=== PATIENT | male | born 1960 | race Caucasian/White ===

== ENCOUNTER 2018-07-02 11:38 | Emergency (ER) | payer MEDICARE, MEDICAID ==
[~2018-07-02] VITALS: Ht 177.8 cm; Wt 99.8 kg
--- OUTSIDE RECORDS SUMMARY | 2018-07-02 11:49 | XMS REPORT ---
Author [facility] Medical Staff Organization [facility] Address [address], [place] [address] Phone [phone] Care Team Providers Care Self Contained Behavior Unit Teacher Name Role Phone HARPER JERRY, ALINA TERRY [phone] ALINA CASTANEDA MD, PP [phone] Summary purpose TRANSITION OF CARE AUTO GENERATION Chief Complaint and Reason for Visit Admit Diagnosis 1 CHEST PAIN RULE OUT AL Problem list No authorized problems tracked for continuity of care are available for this visit. Encounters The following conditions tracked for encounter diagnoses were recorded for this visit: Finding or Diagnosis Status Certainty Chronicity Onset *CHEST PAIN Active Medications Discharge Medications Status Medication Directions Current alfuzosin ER 10 mg tablet,extended release 24 hr 10 milligram (s) oral Daily Current allopurinol 300 mg tablet 300 milligram (s) oral Daily Current clonazepam 1 mg tablet 0.5 milligram (s) oral 3 xDaily 02-04-21 Current Colace 100 mg capsule 1 tab(s) oral Twice a day Current fluvoxamine 100 mg tablet 100 milligram (s) oral 3 xDaily 02-04-21 1 in AM, 1/2 at noon, 1 at bedtime Current hydrocodone-acetaminophen 5 mg-325 mg tablet 2 tab(s) oral 3 xDaily As Needed for pain Current Latuda 120 mg tablet 120 milligram (s) oral Daily with dinner Current Levemir 100 unit/mL Sub-Q 100 unit(s) subcutaneous Daily at 1900 Current lisinopril 20 mg tablet 20 milligram (s) oral Twice a day Current metformin ER 500 mg tablet,extended release 24 hr 1500 milligram (s) oral Daily Current metoprolol tartrate 100 mg tablet 100 milligram (s) oral Daily Current morphine 30 mg capsule 30 milligram (s) oral Twice a day Current [place]-3 oral 1 gram(s) oral Daily Current tolterodine 2 mg tablet 2 milligram (s) oral Twice a day Current Travatan 0.004 % Eye Drops 1 drop(s) ophthalmic Bedtime daily each eye Current verapamil ER (HS) 180 mg tablet,extended release 24 hr 180 milligram (s) oral Twice a day Current zolpidem 10 mg tablet 10 milligram (s) oral Bedtime daily Allergies, adverse reactions, alerts Allergen Category Ingredient Status Reaction Severity Onset Prozac Drug Allergy Prozac Confirmed or Verified Prozac Drug Allergy Prozac Confirmed or Verified Prozac Drug Allergy Fluoxetine Confirmed or Verified Abilify Drug Allergy Abilify Confirmed or Verified Abilify Drug Allergy Aripiprazole Confirmed or Verified Immunizations No immunizations recorded for this patient visit Relevant diagnostic tests and/or laboratory data RESULTS Chemistry :00:00 Result Normal Range Units Sodium L 131 134-145 mEq/l Potassium 4.5 3.5-5.1 mEq/l Chloride L 96 98-107 mEq/l CO2 23.1 22-28 mEq/l Glucose H 165 70-105 mg/dl BUN 16 7-18 mg/dl Creatinine H 1.40 0.6-1.3 mg/dl Calcium L 8.0 8.4-10.2 mg/dl TP - Total Protein 7.1 6.0-8.3 g/dl Albumin 3.9 3.5-5 g/dl Bilirubin - Total 0.2 0.1-1.0 mg/dl AST 34 10-42 IU/L ALT H 73 12-65 IU/L ALP L 36 39-107 IU/L Osmolality L 267.5 280-300 mOsm/L Albumin/Globulin Ratio 1.2 0-8 Anion GAP 11.9 8-16 BUN/Creatinine Ratio 11.4 10-20 BNP- Brain Natriuretic Peptide 83 0-900 pg/ml Estimated GFR L 53 >=60 mL/min/1.7 Hematology :00:00 Result Normal Range Units WBC 6.7 4.8-10.8 103/uL RBC 5.0 4.7-6.1 106/uL HGB 14.0 13.0-18.0 g/dl HCT L 39.0 41.9-52.0 % MCV L 78.8 80-94 FL MCH 28.3 27-31 pg MCHC 35.9 33-37 g/dl RDW 13.2 11.5-15.5 % PLT 231 130-400 103/uL MPV 10.2 7.3-10.4 FL Cardiac [id number]:40:00 Result Normal Range Units Troponin I < 0.04 0.0-0.4 ng/ml Patient samples may contain heterophilic antibodies that could react in immunoassays to give falsely elevated or depressed results. This Dimension assay has been designed to minimize interference from heterophilic antibodies. Nevertheless, complete elimination of this interference from all patient specimens cannot be guaranteed. A test result that is inconsistent with the clinical picture and patient history should be interpreted with caution. [id number]:55:00 Result Normal Range Units Troponin I < 0.04 0.0-0.4 ng/ml Patient samples may contain heterophilic antibodies that could react in immunoassays to give falsely elevated or depressed results. This Dimension assay has been designed to minimize interference from heterophilic antibodies. Nevertheless, complete elimination of this interference from all patient specimens cannot be guaranteed. A test result that is inconsistent with the clinical picture and patient history should be interpreted with caution. [id number]:00:00 Result Normal Range Units CK 183 39-308 IU/L CKMB 1.4 0-3.6 ng/ml Patient samples may contain heterophilic antibodies that could react with immunoassays to give falsely elevated or depressed results. This Dimension assay has been designed to minimize interference from heterophilic antibodies. Nevertheless, complete elimination of this interference from all patient specimens cannot be guaranteed. A test result that is inconsistent with the clinical picture and patient history should be interpreted with caution. Troponin I < 0.04 0.0-0.4 ng/ml Patient samples may contain heterophilic antibodies that could react in immunoassays to give falsely elevated or depressed results. This Dimension assay has been designed to minimize interference from heterophilic antibodies. Nevertheless, complete elimination of this interference from all patient specimens cannot be guaranteed. A test result that is inconsistent with the clinical picture and patient history should be interpreted with caution. Radiology Results [id number]:11:00 Chest XRay - Port - 1 View PACs Image DATE OF EXAM: Sep 19 2014 RAD 0292-CHEST 1 VIEW PORT : RADIOLOGY REPORT DATE OF SERVICE: 09/19/14 HISTORY: Patient has chest pain. PORTABLE ONE VIEW CHEST 1512 HOURS Heart and mediastinum are unremarkable. Lungs are clear. No effusion is seen. There is some rib deformity in lower right ribs laterally. No pleural reaction is identified. IMPRESSION: No acute process or change from 12/23/2012. Minimal scarring is seen in the right costophrenic angle. Chani Redman DO /ma 09/19/2014 15:18:00 / 09/19/2014 15:36:59 cc:Dr. Alina Castaneda This document has been electronically Signed by: On: DATE OF EXAM: Sep 19 2014 RAD 0292-CHEST 1 VIEW PORT : RADIOLOGY REPORT DATE OF SERVICE: 09/19/14 HISTORY: Patient has chest pain. PORTABLE ONE VIEW CHEST 1512 HOURS Heart and mediastinum are unremarkable. Lungs are clear. No effusion is seen. There is some rib deformity in lower right ribs laterally. No pleural reaction is identified. IMPRESSION: No acute process or change from 12/23/2012. Minimal scarring is seen in the right costophrenic angle. Chani Redman DO /ma 09/19/2014 15:18:00 / 09/19/2014 15:36:59 cc:Dr. Alina Castaneda This document has been electronically Signed by: CHANI REDMAN DO On: Sep 20 20148:11A Result Amended on 2014-09-20 at 08:11:20. Previous status was AK. CHEST PAIN RULE OUT AL 32-33-033078:00:00 Result Normal Range Units MPV 10.2 7.3-10.4 FL History of procedures No procedures recorded for this patient visit. Functional status Functional Status Finding Observation Time Hearing Prob Loc left 59-38-896415:40 Vision Problems yes 73-23-888019:40 Vision Correct Dev glasses 43-79-530732:40 Ambulation Asst Dev none 07-93-166149:40 Range of Motion full :02 Muscle Strength RUE 5 ROM full resist 50-92-936813:02 Muscle Strength RLE 5 ROM full resist :02 Muscle Strength LUE 5 ROM full resist :02 Muscle Strength LLE 5 ROM full resist 36-72-903025:02 Transfers assist x 1 85-82-685980:02 Ambulation in room :02 Balance steady :02 Bathing Assistance none :40 Eating Assistance none :40 Dressing Assistance none :40 Toileting Assistance none :40 Transfer Assistance none :40 Decline Slf Care/Mob no :40 Phys Cond Stable no :40 Nutrition normal : Diet ADA specify calorie Comment: 1800 : Oral Cavity moist and intact : Teeth missing (specify) :02 Dental Hygiene poor :02 Abdomen Appearance round :02 Abdomen soft : Bowel Sounds present : NG Tube no :02 Feeding Tube none :02 Melgoza no :02 Cont Bladder Irr no :02 Ostomy no :02 Stool normal :02 Urination normal :02 Urine Clarity clear :02 Urine Color yellow :02 Quality sym/unlabored : Cough absent : Secretions no : Breath Sounds RUL clear :02 Breath Sounds RML clear :02 Breath Sounds RLL clear :02 Breath Sounds ROSALIND clear :02 Breath Sounds LLL clear :02 Airway natural :02 Chest Tube no :02 Oxygen no :15 C-PAP no :02 BI-PAP no :02 Temp >100.4 no :02 Temp <96.8 no :02 Chills with rigors no : HR > 90bpm no :02 Respirations > 20 no :02 Systolic <90 no : headache stiff neck no :02 WBC > 32234 no : WBC < 4000 no :02 Rapid Resp no :02 IV Site Location L hand : IV Type peripheral :20 IV Site Information discontinued : IV Site Yair 18 : IV Site Appearance WNL :03 IV Site Color clear :03 IV Site Patent yes :03 Dressing Type gauze : Nursing Note pt. off the unit at this time.no distress noted. : 50 Cognitive Status Finding Observation Time Oriented To Date 5 Yes :[address] 5 Yes :40 Name 3 Objects 3 Yes :40 Name Object in Rm 2 Yes :40 Recall 3 Objects 3 Yes :40 Repeats a Phrase 1 Yes :40 Follows Verbal Direc 3 Yes :40 Follows Written Dire 0 No :40 Write a Sentance 0 No :40 Draw an Object 1 Yes :40 Mini Mental Total 23 points :40 Less than 20 Phys not applicable :40 Learning Ability learning disability :03 Neurological yes :03 Psychological no :03 Physical no :03 Hearing yes :03 Housetrailer Servicer Needed no :03 Sign Language no :03 Emotional no :03 Vision yes :03 Laguage yes :03 Financial no :03 Vital signs Type Value Date Respiration Rate 18breaths per minute : Pulse 72beats per minute :15 Oxygen Saturation 94% 40-56-377789:15 BP Systolic 104mmHg 26-25-363935:15 BP Diastolic 60mmHg 75-59-015378:15 Temperature 98.9F 64-63-655806:15 Height 72inches 62-22-207519:44 Weight 238.7LB 17-40-774386:44 Social history Type Value Smoking Status FORMER SMOKER Treatment Plan No treatment plan text is available for this visit. Hospital discharge instructions Discharge Date/Time 09/20/14 0950 Accompanied By care car Relationship other (explain) Dismissal Condition good Disposition on DC home Valuables yes Valuable Type cell phone Valuables Returned T patient DC Inst/Educ Give yes Med/Side Effects Rev yes DC Med Rec Rev yes PNE Vac current per pt Vaccines Ord Given no Flu Vac 2013 Tetanus Vac 2009 Diet Explained yes Follow Up Appt D/T september 26 @06:45 Comment: edita
--- OUTSIDE RECORDS SUMMARY | 2018-07-02 11:49 | XMS REPORT ---
Author [facility] Organization [facility] Address [address] [place], [place] [address] Phone [phone] Care Team Providers Care Script Manager Name Role Phone HARPER JERRY, ALINA PP [phone] Summary purpose TRANSITION OF CARE AUTO GENERATION Chief Complaint and Reason for Visit Admit Diagnosis 1 ABDOMINAL PAIN, UNSPECIF Problem list No authorized problems tracked for continuity of care are available for this visit. Encounters No authorized problems tracked for encounter diagnoses are available for this visit. Medications No medications recorded for this patient visit Allergies, adverse reactions, alerts Allergen Category Ingredient Status Reaction Severity Onset Prozac Drug Allergy Prozac Confirmed or Verified Prozac Drug Allergy Prozac Confirmed or Verified Prozac Drug Allergy Fluoxetine Confirmed or Verified Abilify Drug Allergy Abilify Confirmed or Verified Abilify Drug Allergy Aripiprazole Confirmed or Verified Immunizations No immunizations recorded for this patient visit Relevant diagnostic tests and/or laboratory data RESULTS Routine Urinalysis 61-49-287634:15:00 Result Normal Range Units Color YELLOW Clarity Clear Specific [place] 1.008 1.003-1.035 pH 5.5 4.5-8.0 Glucose NEGATIVE Bilirubin NEGATIVE Ketones NEGATIVE Protein NEGATIVE Urobilinogen 0.2 0-0.2 E.U./dL Nitrites NEGATIVE Blood NEGATIVE Leukocytes NEGATIVE WBCs No WBC's Seen RBCs No RBC's Seen. Squamous Epithelial Few Chemistry [id number]:45:00 Result Normal Range Units Sodium L 130 134-145 mEq/l Potassium 4.2 3.5-5.1 mEq/l Chloride L 97 98-107 mEq/l CO2 22.9 22-28 mEq/l Glucose H 148 70-105 mg/dl BUN 10 7-18 mg/dl Creatinine 1.10 0.6-1.3 mg/dl Calcium L 8.0 8.4-10.2 mg/dl TP - Total Protein 6.4 6.0-8.3 g/dl Albumin 3.5 3.5-5 g/dl Bilirubin - Total 0.2 0.1-1.0 mg/dl AST 26 10-42 IU/L ALT 54 12-65 IU/L ALP L 35 39-107 IU/L Lipase 133 73-393 U/L Osmolality L 262.6 280-300 mOsm/L Albumin/Globulin Ratio 1.2 0-8 Anion GAP 10.1 8-16 BUN/Creatinine Ratio L 9.1 10-20 Estimated GFR 70 >=60 mL/min/1.7 Hematology [id number]:45:00 Result Normal Range Units WBC 7.5 4.8-10.8 103/uL RBC L 4.4 4.7-6.1 106/uL HGB L 12.6 13.0-18.0 g/dl HCT L 35.2 41.9-52.0 % MCV 80.7 80-94 FL MCH 28.9 27-31 pg MCHC 35.8 33-37 g/dl RDW 12.7 11.5-15.5 % PLT 203 130-400 103/uL MPV 10.4 7.3-10.4 FL Neutro % 61.3 40-70 % Lymph % 24.4 20-40 % [place] % H 10.3 0-10.0 % Eos % 3.7 0-7.0 % Baso % 0.3 0-2 % Neutro # 4.6 1.5-7.5 103/uL Lymph # 1.8 0.9-4.0 103/uL [place] # 0.8 0-0.8 103/uL Eos # 0.3 0-0.6 103/uL Baso # 0.0 0-0.1 103/uL Body Fluid [id number]:15:00 Result Normal Range Units pH 5.5 4.5-8.0 Radiology Results [id number]:30:00 Abdomen 2 View PACs Image DATE OF EXAM: 2014 RAD 0037-ABDOMEN 2 VIEW : RADIOLOGY REPORT DATE OF SERVICE: 09/23/14 HISTORY: Abdominal pain and diarrhea ABDOMEN 2 VIEWS 2040 HOURS The bowel gas pattern is normal. There are surgical clips in the right upper quadrant. There is no free air. There is no obstruction or ileus. Transsacral stimulator is in place on the right side. IMPRESSION: No acute abnormality in the abdomen. MD ANATOLY Arvizu/isael09/24/2014 06:59:00 / 09/24/2014 09:34:09 cc:Dr. Alina Castaneda This document has been electronically Signed by: On: DATE OF EXAM: 2014 RAD 0037-ABDOMEN 2 VIEW : RADIOLOGY REPORT DATE OF SERVICE: 09/23/14 HISTORY: Abdominal pain and diarrhea ABDOMEN 2 VIEWS 2040 HOURS The bowel gas pattern is normal. There are surgical clips in the right upper quadrant. There is no free air. There is no obstruction or ileus. Transsacral stimulator is in place on the right side. IMPRESSION: No acute abnormality in the abdomen. MD ANATOLY Arvizu/isael09/24/2014 06:59:00 09/24/2014 09:34:09 cc:Dr. Alina Castaneda This document has been electronically Signed by: JOSE ALVAREZ On: 2014 11:30A Result Amended on 2014-09-24 at 11:30:28. Previous status was ID. Chest X-Ray - 2 View PACs Image DATE OF EXAM: 2014 RAD 0300-CHEST XRAY 2 VIEW : RADIOLOGY REPORT DATE OF SERVICE: 09/23/14 HISTORY: Abdominal and epigastric pain CHEST 2 VIEWS 2040 HOURS Comparison is made with 09/19/2014. There is chronic scarring in the right costophrenic angle. There are no acute infiltrates. Heart size and pulmonary vessels are normal. There are old healed right lateral rib fractures. IMPRESSION: Chronic right lateral lung scarring and old rib fractures. No acute chest abnormality. MD ANATOLY Arvizu/ri09/24/2014 06:58:00 / 09/24/2014 09:33:12 cc:Dr. Alina Castaneda This document has been electronically Signed by: On: DATE OF EXAM: 2014 RAD 0300-CHEST XRAY 2 VIEW : RADIOLOGY REPORT DATE OF SERVICE: 09/23/14 HISTORY: Abdominal and epigastric pain CHEST 2 VIEWS 2040 HOURS Comparison is made with 09/19/2014. There is chronic scarring in the right costophrenic angle. There are no acute infiltrates. Heart size and pulmonary vessels are normal. There are old healed right lateral rib fractures. IMPRESSION: Chronic right lateral lung scarring and old rib fractures. No acute chest abnormality. MD ANATOLY Arvizu/ri09/24/2014 06:58:00 / 09/24/2014 09:33:12 cc:Dr. Alina Castaneda This document has been electronically Signed by: JOSE ALVAREZ On: 2014 11:30A Result Amended on 2014-09-24 at 11:30:21. Previous status was ID. [id number]:45:00 Result Normal Range Units MPV 10.4 7.3-10.4 FL History of procedures Procedure Code Code Type Description Date Performed Performing Physician 84033 CPT-4 COMPLETE CBC W/AUTO DIFF WBC 09-23-2014 CHANI YARI 01768 CPT-4 COMPREHEN METABOLIC PANEL 09-23-2014 CHANI YARI 54458 CPT-4 X-RAY EXAM OF ABDOMEN 09-23-2014 CHANI YARI 03667 CPT-4 CHEST X-RAY 09-23-2014 CHANI YARI 04578 CPT-4 URINALYSIS, AUTO W/SCOPE 09-23-2014 CHANI YARI 95189 CPT-4 ASSAY OF LIPASE 09-23-2014 CHANI YARI 11660 CPT-4 ROUTINE VENIPUNCTURE 09-23-2014 CHANI YARI 33475 CPT-4 EMERGENCY DEPT VISIT 09-23-2014 CHANI YARI 15612 CPT-4 US URINE CAPACITY MEASURE 09-23-2014 CHANI YARI 64596 CPT-4 EMERGENCY DEPT VISIT 09-23-2014 CHANI YARI Functional status Functional Status Finding Observation Time Diet regular 60-34-270426:10 Abdomen Appearance round 19-03-932423:10 Abdomen soft 75-27-098548:10 Bowel Sounds present 32-24-096900:10 Urination normal 96-32-379599:10 Quality sym/unlabored 39-72-425388:10 Cough absent 12-60-262275:10 Secretions no :10 Breath Sounds RUL clear :10 Breath Sounds RML clear :10 Breath Sounds RLL clear :10 Breath Sounds ROSALIND clear :10 Breath Sounds LLL clear 13-81-169451:10 Airway natural 22-49-969905:10 Chest Tube no 07-97-126556:10 Oxygen no :45 Temp >100.4 no :10 Temp <96.8 no :10 Chills with rigors no : HR > 90bpm no :10 Respirations > 20 no : Systolic <90 no : headache stiff neck no :10 IV Site Location L FA :45 IV Type peripheral :45 IV Site Information discontinued :45 IV Site Yair 20 :45 IV Site Appearance WNL :45 IV Site Color clear : IV Site Patent no :45 Dressing Type gauze :45 Nursing Note Reviewed dc instructions, Pt accompanied off unit by nurse to wait on his sister. He denies any questions at this x. :45 Vital signs Type Value Date Respiration Rate 16breaths per minute :45 Pulse 72beats per minute :45 Oxygen Saturation 93% :45 BP Systolic 129mmHg :45 BP Diastolic 75mmHg :45 Temperature 98.3F :45 Social history No Social History or smoking status observations were recorded for this visit. ( Unknown if ever smoked.) Treatment Plan No treatment plan text is available for this visit. Hospital discharge instructions Dismissal Condition good Disposition on DC home DC Inst/Educ Give yes PNE Vac current Flu Vac 2013
--- OUTSIDE RECORDS SUMMARY | 2018-07-02 11:49 | XMS REPORT ---
Author [facility] Medical Staff Organization [facility] Address [address] [place], [place] [address] Phone [phone] Care Team Providers Care Personal Lines Agent Name Role Phone HARPER JERRY, JOVANNY PP [phone] Summary purpose TRANSITION OF CARE AUTO GENERATION Chief Complaint and Reason for Visit No authorized Reason for Visit (Admitting Diagnosis) is available for this visit. Problem list No authorized problems tracked for [...] visit Relevant diagnostic tests and/or laboratory data No authorized results are available for this patient visit History of procedures No procedures recorded for this patient visit. Functional status No functional or cognitive status observations are available for this visit. Vital signs No authorized vital signs are available for this visit. Social history No Social History or smoking status observations were recorded for this visit. ( Unknown if ever smoked.) Treatment Plan No treatment plan text is available for this visit. Hospital discharge instructions No discharge instruction text is available for this visit.
--- OUTSIDE RECORDS SUMMARY | 2018-07-02 11:50 | XMS REPORT ---
Author [facility] Medical Staff Organization [facility] Address [address] [place], [place] [address] Phone [phone] Care Team Providers Care Cuprous Chloride Operator Name Role Phone HARPER JERRY, JOVANNY TERRY [phone] JOVANNY SALEEM MD, PP [phone] Summary purpose TRANSITION OF CARE AUTO GENERATION Chief Complaint and Reason for Visit No authorized Reason for Visit (Admitting Diagnosis) is available for this visit. Problem list No authorized problems tracked for continuity of care are available for this visit. Encounters No authorized problems tracked for encounter diagnoses are available for this visit. Medications No home medications recorded for this patient visit Allergies, [...]
--- OUTSIDE RECORDS SUMMARY | 2018-07-02 11:50 | XMS REPORT ---
Author Author [facility] Medical Staff Organization [facility] Address [address] [place], [place] [address] Phone [phone] Care Team Providers Care Loading Dock Helper Name Role Phone HARPER JERRY, JOVANNY TERRY [phone] JOVANNY SALEEM MD, PP [phone] Summary purpose TRANSITION OF CARE AUTO GENERATION Chief Complaint and Reason for Visit Admit Diagnosis 1 CHEST PAIN NEC Problem list No authorized problems tracked for [...] for this patient visit History of procedures Procedure Code Code Type Description Date Performed Performing Physician 62723 CPT-4 ELECTROCARDIOGRAM, TRACING 09-04-2014 JOVANNY SALEEM Functional status No functional or cognitive status [...]
--- OUTSIDE RECORDS SUMMARY | 2018-07-02 11:50 | XMS REPORT ---
Author [facility] Medical Staff Organization [facility] Address [address] [place], [place] [address] Phone [phone] Care Team Providers Care Automatic Lathe Tender Name Role Phone HARPER JERRY, JOVANNY PP [phone] Summary purpose TRANSITION OF CARE AUTO GENERATION [...] tests and/or laboratory data RESULTS Routine Urinalysis 44-01-602542:15:00 Result Normal Range Units Color YELLOW Clarity Clear Specific [place] 1.008 1.003-1.035 pH 5.5 4.5-8.0 Glucose NEGATIVE Bilirubin NEGATIVE Ketones NEGATIVE Protein NEGATIVE Urobilinogen 0.2 0-0.2 E.U./dL Nitrites NEGATIVE Blood NEGATIVE Leukocytes NEGATIVE WBCs No WBC's Seen RBCs No RBC's Seen. Squamous Epithelial Few Chemistry [id number]:45:00 Result Normal Range Units Sodium L 130 [...] 10-20 Estimated GFR 70 >=60 mL/min/1.7 Hematology :45:00 Result Normal Range Units WBC 7.5 4.8-10.8 103/uL RBC L 4.4 4.7-6.1 106/uL HGB L 12.6 13.0-18.0 g/dl HCT L 35.2 41.9-52.0 % MCV 80.7 80-94 FL MCH 28.9 27-31 pg MCHC 35.8 33-37 g/dl RDW 12.7 11.5-15.5 % PLT 203 130-400 103/uL MPV 10.4 7.3-10.4 FL Neutro % 61.3 40-70 % Lymph % 24.4 20-40 % [place] % H 10.3 0-10.0 % Eos % 3.7 0-7.0 % Baso % 0.3 0-2 % Neutro # 4.6 1.5-7.5 103/uL Lymph # 1.8 0.9-4.0 103/uL [place] # 0.8 0-0.8 103/uL Eos # 0.3 0-0.6 103/uL Baso # 0.0 0-0.1 103/uL Body Fluid :15:00 Result Normal Range Units pH 5.5 4.5-8.0 Radiology Results :45:00 Result Normal Range Units MPV 10.4 7.3-10.4 FL History of procedures No procedures recorded for this patient visit. Functional status Functional Status Finding Observation Time Diet regular :10 Abdomen Appearance round 72-07-880497:10 Abdomen soft :10 Bowel Sounds present :10 Urination normal :10 Quality sym/unlabored :10 Cough absent :10 Secretions no :10 Breath Sounds RUL clear :10 Breath Sounds RML clear :10 Breath Sounds RLL clear :10 Breath Sounds ROSALIND clear :10 Breath Sounds LLL clear :10 Airway natural : Chest Tube no :10 Oxygen no :45 Temp >100.4 no :10 Temp <96.8 no :10 Chills with rigors no : HR > 90bpm no : Respirations > 20 no : Systolic <90 no : headache stiff neck no :10 IV Site Location L FA :45 IV Type peripheral :45 IV Site Information discontinued :45 IV Site Yair 20 :45 IV Site Appearance WNL :45 IV Site Color clear :45 IV Site Patent no :45 Dressing Type [...] Give yes PNE Vac current Flu Vac 2014
--- OUTSIDE RECORDS SUMMARY | 2018-07-02 11:50 | XMS REPORT ---
Author Author [facility] Medical Staff Organization [facility] Address [address] [place], [place] [address] Phone [phone] Care Team Providers Care Dipper Clock And Watch Hands Name Role Phone HARPER JERRY, ALINA TERRY [phone] ALINA CASTANEDA MD, PP [phone] Summary purpose TRANSITION OF CARE AUTO GENERATION Chief Complaint and Reason for Visit Admit Diagnosis 1 CHEST PAIN RULE OUT WI Problem list No authorized problems tracked for [...] milligram (s) oral Twice a day Current [place]-3 oral 1 gram(s) oral Daily Current tolterodine [...] 130-400 103/uL MPV 10.2 7.3-10.4 FL Cardiac 14-47-815576:40:00 Result Normal Range Units Troponin I < [...] patient history should be interpreted with caution. 59-09-646021:55:00 Result Normal Range Units Troponin I < [...] patient history should be interpreted with caution. 69-32-268809:00:00 Result Normal Range Units CK 183 39-308 [...] should be interpreted with caution. Radiology Results 83-62-538344:11:00 Chest XRay - Port - 1 View [...] the right costophrenic angle. Chani Redman DO /mo 09/19/2014 15:18:00 / 09/19/2014 15:36:59 cc:Dr. Alina [...] the right costophrenic angle. Chani Redman DO /mo 09/19/2014 15:18:00 / 09/19/2014 15:36:59 cc:Dr. Alina Castaneda This document has been electronically Signed by: CHANI REDMAN DO On: Sep 20 20148:11A Result Amended on 2014-09-20 at 08:11:20. Previous status was CT. CHEST PAIN RULE OUT WI 03-52-051984:00:00 Result Normal Range Units MPV 10.2 7.3-10.4 FL History of procedures No procedures recorded for this patient visit. Functional status Functional Status Finding Observation Time Hearing Prob Loc left 96-63-918348:40 Vision Problems yes 82-72-132641:40 Vision Correct Dev glasses 53-06-807618:40 Ambulation Asst Dev none 77-04-393578:40 Range of Motion full :02 Muscle Strength RUE 5 ROM full resist 98-19-675661:02 Muscle Strength RLE 5 ROM full resist :02 Muscle Strength LUE 5 ROM full resist :02 Muscle Strength LLE 5 ROM full resist 48-09-667253:02 Transfers assist x 1 11-06-421998:02 Ambulation in room :02 Balance steady :02 [...] headache stiff neck no :02 WBC > 57808 no : WBC < 4000 no :02 Rapid Resp no :02 IV Site Location L hand :20 IV Type peripheral :20 IV Site Information discontinued :20 IV Site Yair 18 :20 IV Site Appearance WNL 77-84-964259:03 IV Site Color clear :03 IV Site Patent yes :03 Dressing Type gauze :20 Nursing Note Pt states he is doing okay and states stay was good. 09-23-2014 08:53 Cognitive Status Finding Observation Time Oriented To [...] :03 Physical no :03 Hearing yes :03 Crime Scene Investigator Needed no :03 Sign Language no :03 Emotional no :03 Vision yes :03 Laguage yes :03 Financial no :03 Vital signs Type Value Date Respiration Rate 18breaths per minute :15 Pulse 72beats per minute :15 Oxygen Saturation 94% 82-22-177802:15 BP Systolic 104mmHg 99-53-413457:15 BP Diastolic 60mmHg 65-52-322452:15 Temperature 98.9F 81-31-218361:15 Height 72inches 20-07-519354:44 Weight 238.7LB 52-43-026325:44 Social history Type Value Smoking Status FORMER [...] Tetanus Vac 2009 Diet Explained yes Follow up appt appt made (specify) Follow Up Appt D/T september 26 @06:45 Comment: edita
--- OUTSIDE RECORDS SUMMARY | 2018-07-02 11:50 | XMS REPORT ---
Author Author [facility] Medical Staff Organization [facility] Address [address] [place], [place] [address] Phone [phone] Care Team Providers Care Bread Wrapping Machine Feeder Name Role Phone HARPER JERRY, JOVANNY PP [phone] Summary purpose TRANSITION OF CARE AUTO GENERATION [...]
--- OUTSIDE RECORDS SUMMARY | 2018-07-02 11:50 | XMS REPORT ---
Author Author [facility] Medical Staff Organization [facility] [facility] Address [address] [place], [place] [address] Phone [phone] Care Team Providers Care Cotton Dispatcher Name Role Phone HARPER JERRY, JOVANNY PP [phone] Summary purpose TRANSITION OF CARE AUTO GENERATION [...] Code Type Description Date Performed Performing Physician A0427 CPT-4 ALS1-EMERGENCY 09-23-2014 CHANI GREENBERG A0425 CPT-4 GROUND MILEAGE 09-23-2014 CHANI GREENBERG Functional status No functional or cognitive status [...]
--- OUTSIDE RECORDS SUMMARY | 2018-07-02 11:50 | XMS REPORT ---
Author [facility] Medical Staff Organization [facility] Address [address] [place], [place] [address] Phone [phone] Care Team Providers Care Laboratory Apparatus Glass Blower Name Role Phone HARPER JERRY, JOVANNY PP [phone] Summary purpose TRANSITION OF CARE AUTO GENERATION [...] Functional status Functional Status Finding Observation Time IV Site Location Right hand :31 IV Type peripheral 05-27-878989:31 IV Site Information discontinued :26 IV Site Start Attmpt 1 times :31 IV Site Yair 20 78-48-525209:31 IV Site Appearance WNL 53-73-157424:26 IV Site Color clear :26 IV Site Patent yes :26 Dressing Type gauze :26 Nursing Note Second set of scans completed. Verbal and written discharge instructions given to patient. He voiced understanding. Patient given a to go bag of crackers and juice. Patient escorted to waiting room to wait on care car in Good condition. Chest pain has remained at a "0" throughout procedure. 75-31-564030:30 Vital signs Type Value Date Height 72inches 92-45-969189:41 Weight 245LB 51-58-860349:41 Social history No Social History or smoking status observations were recorded for this visit. ( Unknown if ever smoked.) Treatment Plan No treatment plan text is available for this visit. Hospital discharge instructions Discharge Date/Time 09/26/2014 09:30 Dismissal Condition good Disposition on DC home Valuables yes Valuable Type billfold/calderone Valuables Returned T patient
--- OUTSIDE RECORDS SUMMARY | 2018-07-02 11:51 | XMS REPORT ---
Author Author [facility] Medical Staff Organization [facility] Address [address] [place] [address] Phone [phone] Care Team Providers Care Garment Mender Name Role Phone JACKI AHN APRN PP [phone] Summary purpose TRANSITION OF CARE AUTO GENERATION [...] Code Type Description Date Performed Performing Physician 38485 CPT-4 COMPREHEN METABOLIC PANEL 04-08-2015 [facility] 29425 CPT-4 BLOOD CULTURE FOR BACTERIA 04-08-2015 [facility] 01319 CPT-4 BLOOD CULTURE FOR BACTERIA 04-08-2015 [facility] 79481 CPT-4 URINALYSIS AUTO W/SCOPE 04-08-2015 [facility] 82989 CPT-4 ASSAY OF LACTIC ACID 04-08-2015 [facility] 90628 CPT-4 CHEST X-RAY 2VW FRONTAL&LATL 04-08-2015 [facility] 29754 CPT-4 X-RAY EXAM OF ABDOMEN 04-08-2015 [facility] 87099 CPT-4 C DIFF AMPLIFIED PROBE 04-08-2015 [facility] 77706 CPT-4 FECES CULTURE AEROBIC BACT 04-08-2015 [facility] 27225 CPT-4 STOOL CULTR AEROBIC BACT EA 04-08-2015 [facility] 31593 CPT-4 SHIGA-LIKE TOXIN AG EIA 04-08-2015 [facility] J2405 CPT-4 ONDANSETRON HCL INJECTION 04-08-2015 [facility] J7030 CPT-4 NORMAL SALINE SOLUTION INFUS 04-08-2015 [facility] 59338 CPT-4 ROUTINE VENIPUNCTURE 04-08-2015 [facility] 90374 CPT-4 ROUTINE VENIPUNCTURE 04-08-2015 [facility] 91941 CPT-4 COMPLETE CBC AUTOMATED 04-08-2015 [facility] 74118 CPT-4 BL SMEAR W/DIFF WBC COUNT 04-08-2015 [facility] 42443 CPT-4 EMERGENCY DEPT VISIT 04-08-2015 [facility] 99306 CPT-4 EMERGENCY DEPT VISIT 04-08-2015 [facility] 79630 CPT-4 THER/PROPH/DIAG INJ IV PUSH 04-08-2015 [facility] 13474 CPT-4 HYDRATE IV INFUSION ADD-ON 04-08-2015 [facility] Functional status No functional or cognitive status [...]
--- OUTSIDE RECORDS SUMMARY | 2018-07-02 11:51 | XMS REPORT ---
Author Author [facility] Medical Staff Organization [facility] Address [address] [place], [place] [address] Phone [phone] Care Team Providers Care Certified Paralegal Name Role Phone HARPER JERRY, JOVANNY PP [phone] Summary purpose TRANSITION OF CARE AUTO GENERATION [...]
--- OUTSIDE RECORDS SUMMARY | 2018-07-02 11:51 | XMS REPORT ---
Author Author [facility] [facility] Medical Staff Organization [facility] [employer] [facility] Address [address] [place], [place] [address] Phone [phone] Care Team Providers Care Cereal Miller Name Role Phone HARPER JERRY, ALINA PP [phone] Summary purpose TRANSITION OF CARE AUTO GENERATION Chief Complaint and Reason for Visit Admit Diagnosis 1 CHEST PAIN NOS Problem list No authorized problems tracked for [...] Relevant diagnostic tests and/or laboratory data RESULTS Radiology Results 53-21-298869:53:00 MYOCARDIAL SPECT MULT PACs Image DATE OF EXAM: 2014 [id number] SPECT MULTIPLE : RADIOLOGY REPORT DATE OF SERVICE: 09/26/14 HISTORY: Chest pain, hypertension, hyperlipidemia, obese, tobacco use, family history PHARMACOLOGICAL STRESS AND RESTING MYOCARDIAL PERFUSION STUDY (LEXISCAN CARDIOLITE STUDY) 0955 HOURS The patient initially is given 9.1 mCi of technetium 99m labeled Cardiolite intravenously. After a 62 minute delay, resting SPECT perfusion images are obtained. The patient is then given the pharmacological stress agent by the referring clinician. At maximal stress, the patient is given 33.0 mCi of technetium 99m labeled Cardiolite intravenously. After a 58 minute delay, gated stress SPECT perfusion images are obtained. On the nongated stress SPECT perfusion images, there is a perfusion defect along the anteroseptal wall of the left ventricle as well as along the inferior wall of the left ventricle. These perfusion defects are less apparent on the stress study than on the resting images.The differential diagnosis for the nongated study would include areas of previous infarction.Since the stress and resting images are almost identical, there is no evidence for reversible ischemia. On the end-systolic gated stress SPECT perfusion images, the minor perfusion defect along the anteroseptal wall of the apex is present. There is also a minor defect along the inferior wall of the left ventricle.These are much smaller on the end-systolic gated stress SPECT perfusion images than on the resting images and therefore most likely represent technical artifacts, although a small area of previous infarction is in the differential diagnosis.Since the stress images have much smaller perfusion defects, there is no evidence for any reversible ischemia. On the gated study, the left ventricular ejection fraction is calculated at 63% which is normal. The end-systolic volume is 39 cc with the end-diastolic volume being 107 cc. there is normal segmental left ventricular cardiac wall motion and thickening present. IMPRESSION: 1)The end-systolic stress SPECT perfusion images have a minor perfusion defect along the apex at the anteroseptal wall. This is most likely a technical artifact due to the patient's body habitus. The resting images have perfusion defects in the anteroseptal wall as well as inferior wall which are much larger on the resting study than on the stress images. There is no evidence for any reversible ischemia. 2)The gated study has a left ventricular ejection fraction calculated at 63% which is normal. There is normal segmental left ventricular cardiac wall motion and thickening present. Lenroe Streeter MD SDP/pb09/26/2014 16:24:00 / 09/26/2014 21:20:45 cc:Dr. Alina Castaneda This document has been electronically Signed by: On: History of procedures Procedure Code Code Type Description Date Performed Performing Physician 49055 CPT-4 CARDIOVASCULAR STRESS TEST 09-26-2014 ALINA CASTANEDA 64597 CPT-4 HT MUSCLE IMAGE SPECT, MULT 09-26-2014 ALINA CASTANEDA A9500 CPT-4 TC99M SESTAMIBI 09-26-2014 ALINA CASTANEDA J2785 CPT-4 REGADENOSON INJECTION 09-26-2014 ALINA CASTANEDA Functional status Functional Status Finding Observation Time IV Site Location Right hand 63-51-564312:31 IV Type peripheral 52-12-988939:31 IV Site Information discontinued 88-36-581050:26 IV Site Start Attmpt 1 times :31 IV Site Yair 20 :31 IV Site Appearance WNL :26 IV Site Color clear :26 IV Site Patent yes :26 Dressing Type gauze :26 Nursing Note Patient has already heard from Dr. Castaneda regarding test. 20140524:59 Vital signs Type Value Date Height 72inches :41 Weight 245LB :41 Social history No Social History or smoking status observations were recorded for this visit. ( Unknown if ever smoked.) Treatment Plan No treatment plan text is available for this visit. Hospital discharge instructions Discharge Date/Time 09/26/2014 09:30 Dismissal Condition good Disposition on DC home Valuables yes Valuable Type billfold/purse Valuables Returned T patient
--- OUTSIDE RECORDS SUMMARY | 2018-07-02 11:51 | XMS REPORT ---
Author Author [facility] Medical Staff Organization [facility] Address [address] [id number] Phone [phone] Care Team Providers Care Licensed Massage Therapist Name Role Phone MIMA ERAZO APRN PP [phone] MIMA ERAZO APRN, PP [phone] Summary purpose TRANSITION OF CARE AUTO GENERATION Chief Complaint and Reason for Visit Admit Diagnosis 1 LEUKOCYTOSIS NAUSEA VOMITING Admit Diagnosis 2 ABD PAIN Problem list No authorized problems tracked for continuity of care are available for this visit. Encounters The following conditions tracked for encounter diagnoses were recorded for this visit: Finding or Diagnosis Status Certainty Chronicity Onset *LEUKOCYTOSIS Active *NAUSEA AND VOMITING Active *DIARRHEA Active Medications Discharge Medications Status Medication Directions Current alfuzosin ER 10 mg tablet,extended release 24 hr 10 milligram (s) oral Daily Current allopurinol 300 mg tablet 300 milligram (s) oral Daily Current Cipro 250 mg tablet one tablet oral Twice a day Current clonazepam 1 mg tablet 1 milligram (s) oral 3 xDaily 02-04-21 Current Coricidin HBP oral 1 tab(s) oral As Needed for Cough/congestion Current Flagyl 500 mg tablet one tablet oral 3 xDaily 02-04-21 Current fluvoxamine 100 mg tablet 100 milligram (s) oral Morning and Evening Current fluvoxamine 100 mg tablet 50 milligram (s) oral Daily at 1200 Current Humalog 100 unit/mL subcutaneous solution 10 unit(s) subcutaneous Daily with lunch and dinner Current Humalog 100 unit/mL subcutaneous solution 20 unit(s) subcutaneous Daily with breakfast Current hydrocodone-acetaminophen 5 mg-325 mg tablet 2 tab(s) oral oral 3 xDaily As Needed for Breakthrough pain Current Latuda 120 mg tablet 120 milligram (s) oral Daily with dinner Current Levemir 100 unit/mL Sub-Q 70 unit(s) subcutaneous Bedtime daily Current Lomotil 2.5 mg-0.025 mg tablet 2 tab(s) oral As Needed for Diarrhea 1-2 tabs after each loose stool Current Lubricating Drops eye solution 1 drop(s) opht As Needed for Dry eyes Current Miralax 17 gram oral powder packet 17 gram(s) oral oral As Needed for Diarrhea Current morphine 30 mg capsule 30 milligram (s) oral Twice a day Current [place]-3 capsule 1 gram(s) oral Daily Current tolterodine 2 mg tablet 2 milligram (s) oral Twice a day Current Travatan 0.004 % Eye Drops 1 drop(s) ophthalmic Bedtime daily each eye Current Travatan Z 0.004 % eye drops 1 drop(s) ophthalmic Daily Current trazodone 150 mg tablet 150 milligram (s) oral Bedtime daily Current Zofran ODT 4 mg disintegrating tablet 4 milligram (s) oral Q6 Hours As Needed for Nausea Current zolpidem 10 mg tablet 10 milligram (s) oral Bedtime daily Stopped docusate sodium 100 mg capsule 100 milligram (s) oral Twice a day Stopped Keflex 500 mg capsule 500 milligram (s) oral Twice a day x 7 days-ends on 04/10 x 1 dose Stopped lisinopril 20 mg tablet 20 milligram (s) oral Twice a day Stopped metformin ER 500 mg tablet,extended release 24 hr 1500 milligram (s) oral Daily Stopped metoprolol tartrate 100 mg tablet 100 milligram (s) oral Daily Stopped verapamil ER (HS) 180 mg tablet,extended release 24 hr 180 milligram (s) oral Twice a day Allergies, adverse reactions, alerts Allergen Category Ingredient Status Reaction Severity Onset Prozac Drug Allergy Prozac Confirmed or Verified Prozac Drug Allergy Prozac Confirmed or Verified Prozac Drug Allergy Fluoxetine Confirmed or Verified Abilify Drug Allergy Abilify Confirmed or Verified Abilify Drug Allergy Aripiprazole Confirmed or Verified Immunizations No immunizations recorded for this patient visit Relevant diagnostic tests and/or laboratory data RESULTS [id number]:43:00 Discharge Summary DISCHARGE SUMMARY ADMITTING DIAGNOSIS: 1. Abdominal pain, diarrhea, vomiting, possible gastroenteritis. 2. Mild renal insufficiency. DISCHARGE DIAGNOSIS: 1. Abdominal pain and vomiting improved likely secondary to colitis. 2. Diarrhea, slowly improving. 3. Renal insufficiency, improved. 4. Hypotension and bradycardia which is improved. CONSULTATIONS: During this period of time was Dr. Vinson did do an EGD and colonoscopy. HISTORY OF PRESENT ILLNESS: Mr. Estrada is a 55 year old patient of mine who presented to the emergency room on 04/08 with complaints of abdominal pain, vomiting, diarrhea for approximately 2 weeks. The patient does have a history of chronic diarrhea, but this was all worse than what he normally battles with. He had been seen on Wednesday and thought to have a urinary tract infection and was placed on Keflex. He did not tolerate any of that through the weekend and workup in the ER did show some leukocytosis and renal insufficiency. He was given IV fluids, IV antiemetics and transferred to inpatient care. LABORATORY/X-RAY/EKG DATA: White count today was down to 14.6, hemoglobin 12.1, hematocrit 34.7 which is stable from the . BNP was stable. Glucose 103. Estimated GFR came up nicely back up to 79. HOSPITAL COURSE: Throughout the hospital stay he did slowly improve. Renal function improved greatly just with IV fluids. His Metformin was held and just used his regular insulin regimen and blood sugars have been well controlled. He was hypotensive some the point of admission and even today has normal blood pressures. We have held all of his blood pressure medicines and will continue to do that upon dismissal. He is tolerating liquids and soft foods. Still has some occasional nausea, but no vomiting. Continues with the diarrhea. PHYSICAL EXAMINATION: VITAL SIGNS: This morning, temperature 97.8, pulse 90, blood pressure 118/64, respirations 18, he is 95% on room air. GENERAL: He is an obese male, appears in no acute distress. He is alert and oriented. HEART: Rate is regular without murmur. LUNGS: Clear to auscultation bilaterally. ABDOMEN: Soft, nontender, with positive bowel sounds. EXTREMITIES: Without edema. SKIN: Without rashes or lesions. DISCHARGE INSTRUCTIONS: DISCHARGE CONDITION: He is sent home in stable condition. MEDICATIONS: Allopurinol 300 mg 1 tablet daily. Alfuzosin ER 10 mg daily, Clonazepam 1mg 3 times a day. Coricidin HBP as needed for cough and cough. Going to stop his scheduled docusate, he may have it as needed. Fluvoxamine 100 mg tablet in the morning and evening and then 100 mg tablet at noon. Humalog 20 units daily with breakfast and 10 units with lunch and dinner. Hydrocodone 5/325 2 tablets 3 times a day as needed for breakthrough pain. Latuda 120 mg daily. Levemir 70 units at bedtime. Going to hold his Lisinopril and his Metoprolol. He has Lomotil as needed. Lubricating eye drops as needed. Holding his Metformin. He can have MiraLax as needed now which was removed from daily. Morphine 30 mg twice a day for pain. [place]-3 capsule 1 g daily. Tolterodine 2 mg twice a day. Travatan Z eye drops daily and then he also gets the regular Travatan 0.004% at bedtime. Trazodone 150 mg at bedtime. Going to hold his Verapamil. Zofran 4 mg every 6 hours as needed. Ambien 10 mg at bedtime. I also sent him home on Cipro 250 mg twice a day for 3 more days and Flagyl 500 mg three times a day for 3 more days. FOLLOW UP: We will plan for dismissal with TCM followup in the next 1 to 2 weeks. We did discuss that Dr. Vinson will likely want to see him also to discuss the results of his EGD and colonoscopy. ALBAN Hutton MD [place]/isael 04/12/2015 08:43:26/04/12/2015 10:42:45 Clinic Code: [facility]: [facility] [address] [place] [address] <END HEADER> [id number]:15:00 Progress Note PROGRESS NOTE 04/11/2015 08:15:20 S:Mr. Estrada is resting in bed this morning. He states he is doing well. He has not had any nausea, vomiting, and his diarrhea has slowed down drastically. Dr. Vinson consulted yesterday and will be doing an EGD and colonoscopy today. I did receive a call yesterday morning with concerns of some bradycardia. Patient was asymptomatic until they did an EKG and then he started complaining of chest pain. Workup was completely negative. O: VITAL SIGNS:This morning, temperature is 99.2, pulse 77, blood pressure is 136/73, respirations are 18, he is 100% on room air. He is an obese male, alert and oriented and appears in no acute distress. HEART:Regular without murmur. LUNGS:Clear to auscultation bilaterally. ABDOMEN: Soft, nontender with positive bowel sounds. EXTREMITIES:Without edema. LABORATORY DATA:Chemistry is normal today. His cardiac enzymes were completely normal and CT of the abdomen yesterday did show colitis. A: 1.A 55-year-old male with colitis. 2.Intermittent bradycardia. P: He was pulled off all 3 of his blood pressure medicines for hypotension. That could be some of the rebound cause of the bradycardia, though this morning, his rate is running at 77, and blood pressure is stable. I am going to go ahead and continue to hold his medications at this time. I am going to decrease his IV fluids down to just a KVO rate and he is scheduled for EGD and colonoscopy at 2 p.m. this afternoon. I talked with patient and if everything works out, would like to see about switching him over to oral medications, getting his diet increased and hopefully get him home in the next 24-48 hours. ALBAN Hutton/jt 04/11/2015 08:15:20/04/11/2015 08:58:27 Clinic Code: cc: <[facility] [address] [address]<END HEADER> [id number]:26:00 Progress Note PROGRESS NOTE 04/10/2015 08:26:42 ADDENDUM I was able to find his last colonoscopy that was done by Dr. Castaneda in December 2010 and was normal. ALBAN Hutton/cdj106/10/2014 08:26:42/04/10/2015 10:46:18 Clinic Code: cc: <[facility] [address] [address]<END HEADER> [id number]:24:00 Progress Note PROGRESS NOTE 04/10/2015 08:24:24 S: Mr. Estrada is resting in bed this morning. He states he has been having some nausea and dry heaves. No actual vomiting. He did tolerate a little bit of ice cream yesterday but that was about it. He is continuing to have diarrhea. He states that the last few times it has been pretty dark. Otherwise, he has no complaints. O: VITAL SIGNS: Temperature is 98.7, pulse 78, blood pressure is 137/68, respirations are 20, and he is 99% on room air. GENERAL: He is an obese male.He is alert and oriented and appears in no acute distress. HEART: Regular rate without murmur. LUNGS: Clear to auscultation bilaterally. ABDOMEN: Soft. Slight hypoactive bowel sounds and tenderness over the lower abdomen with palpation. EXTREMITIES: Without edema. LABORATORY/X-RAY/ELECTROCARDIOGRAM DATA:White count is down to 15.8. Hemoglobin dropped from 15.4 to 12.6 and hematocrit from 43.4 to 35.8. Glucose this morning is 123. BUN and creatinine are completely back to normal. A: 1.Suspected gastroenteritis though continued abdominal pain. 2.Continued nausea and diarrhea. 3.Mild renal insufficiency which is improved. P: 1.I am going to a do aCT scan of the abdomen and pelvis this morning and surgical consult. I am honestly not sure the patient has ever had a colonoscopy and the patient does not remember. 2.At this point in time, I am going to continue his intravenous fluids, his intravenous antibiotics. 3.Recheck labs tomorrow. 4.Continue to hold his blood pressure medications as his blood pressures remain very stable. Mima Erazo APRN [place]/cdj106/10/2014 08:24:24/04/10/2015 10:40:27 Clinic Code: [facility]: [facility] [address] [place] [address]<END HEADER> [id number]:32:00 Progress Note PROGRESS NOTE 04/09/2015 08:32:59 S:Mr. Estrada is sitting up on the side of the bed this morning. Denies any vomiting through the night. He does have waves of nausea but is tending to do well with his clear liquids overall. He has had a few bouts of diarrhea. He does continue to be a little bit hypotensive and did have difficulty urinating this morning though that is not always uncommon for him. O: VITAL SIGNS: Temperature this morning is 98, pulse is 100, blood pressure is 94/46, respirations are 18, and he is 100% on room air. GENERAL: He is an obese male. He is alert and oriented and appears in no acute distress. HEART: Regular without murmur. LUNGS: Clear to auscultation bilaterally. ABDOMEN: Actually soft and nontender this morning with positive bowel sounds. EXTREMITIES: Without edema. LABORATORY/X-RAY/ELECTROCARDIOGRAM DATA: This morning his potassium went down to 3.4, BUN was down to 36, creatinine is down to 1.62 with an estimated glomerular filtration rate of 44. A: 1.Likely gastroenteritis, improving. 2.Continued nausea and diarrhea. 3.Mild renal insufficiency. P: 1.We will continue intravenous hydration today. 2.Add back in most of his oral medications. 3.I am going to go ahead and hold his metformin and his blood pressure medications at this time. 4.Continue his intravenous fluids and intravenous antibiotics. 5.Recheck complete blood count and basic metabolic profile in the morning. 6.Hopefully plan for discharge in the next 24 to 48 hours if he can tolerate diet and no return of vomiting. Mima Erazo APRN [place]/cdj106/09/2014 08:32:59/04/09/2015 10:16:45 Clinic Code: [facility] [address] [place] [address]<END HEADER> Routine Urinalysis [id number]:15:00 Result Normal Range Units Color YELLOW Clarity Clear Specific [place] 1.025 1.003-1.035 pH 6.0 4.5-8.0 Glucose NEGATIVE Bilirubin 1+ Ketones 1+ Protein NEGATIVE Urobilinogen 0.2 0-0.2 E.U./dL Nitrites NEGATIVE Blood NEGATIVE Leukocytes NEGATIVE WBCs No WBC's Seen RBCs 0-5 Squamous Epithelial No Squamous Epithelial Cells seen. Blood Cultures [id number]:10:00 Blood Culture Plate Date and Time 04/08/2015 13:16 SourceBLOOD CULTURE REPORT NoGrowth at 1 day. Unless otherwise notified. Final report in 5 Days. Release Date/Time: 04/09/2015 07:32 CULTURE REPORT No growth in 5 days. Release Date/Time: 04/14/2015 07:15 [id number]:00 Blood Culture Plate Date and Time 04/08/2015 13:16 SourceBLOOD CULTURE REPORT NoGrowth at 1 day. Unless otherwise notified. Final report in 5 Days. Release Date/Time: 04/09/2015 07:32 CULTURE REPORT No growth in 5 days. Release Date/Time: 04/14/2015 07:15 Chemistry [id number]:20:00 Result Normal Range Units Sodium 138 134-145 mEq/l Potassium 3.5 3.5-5.1 mEq/l Chloride 104 98-107 mEq/l CO2 23.5 22-28 mEq/l Glucose 103 70-105 mg/dl BUN L 6 7-18 mg/dl Creatinine 0.98 0.6-1.3 mg/dl Calcium L 7.8 8.4-10.2 mg/dl Osmolality L 273.5 280-300 mOsm/L Anion GAP 10.5 8-16 BUN/Creatinine Ratio L 6.1 10-20 Estimated GFR 79 >=60 mL/min/1.7 :05:00 Result Normal Range Units Sodium 135 134-145 mEq/l Potassium 3.9 3.5-5.1 mEq/l Chloride 105 98-107 mEq/l CO2 L 19.3 22-28 mEq/l Glucose H 123 70-105 mg/dl BUN 11 7-18 mg/dl Creatinine 0.94 0.6-1.3 mg/dl Calcium L 8.1 8.4-10.2 mg/dl Osmolality L 270.9 280-300 mOsm/L Anion GAP 10.7 8-16 BUN/Creatinine Ratio 11.7 10-20 Estimated GFR 83 >=60 mL/min/1.7 :20:00 Result Normal Range Units Sodium 137 134-145 mEq/l Potassium L 3.4 3.5-5.1 mEq/l Chloride 103 98-107 mEq/l CO2 L 16.6 22-28 mEq/l Glucose 105 70-105 mg/dl BUN H 36 7-18 mg/dl Creatinine H 1.62 0.6-1.3 mg/dl Calcium L 7.8 8.4-10.2 mg/dl Osmolality 282.5 280-300 mOsm/L Anion GAP H 17.4 8-16 BUN/Creatinine Ratio H 22.2 10-20 Estimated GFR L 44 >=60 mL/min/1.7 [id number]:10:00 Result Normal Range Units Sodium L 130 134-145 mEq/l Potassium 3.7 3.5-5.1 mEq/l Chloride L 97 98-107 mEq/l CO2 L 16.8 22-28 mEq/l Glucose H 139 70-105 mg/dl BUN H 45 7-18 mg/dl Creatinine H 1.71 0.6-1.3 mg/dl Calcium L 8.0 8.4-10.2 mg/dl TP - Total Protein 6.7 6.0-8.3 g/dl Albumin L 3.3 3.5-5 g/dl Bilirubin - Total 0.2 0.1-1.0 mg/dl AST 11 10-42 IU/L ALT 23 12-65 IU/L ALP 56 39-107 IU/L Osmolality L 274.6 280-300 mOsm/L Albumin/Globulin Ratio 1.0 0-8 Anion GAP H 16.2 8-16 BUN/Creatinine Ratio H 26.3 10-20 Estimated GFR L 42 >=60 mL/min/1.7 Lactic Acid 1.0 0.4-2.0 mmol/L Hematology [id number]:20:00 Result Normal Range Units WBC H 14.6 4.8-10.8 103/uL RBC L 4.0 4.7-6.1 106/uL HGB L 12.1 13.0-18.0 g/dl HCT L 34.7 41.9-52.0 % MCV 85.9 80-94 FL MCH 30.0 27-31 pg MCHC 34.9 33-37 g/dl RDW 13.6 11.5-15.5 % PLT 206 130-400 103/uL MPV 10.1 7.3-10.4 FL Segs 47.0 40-70 % Bands 1.0 0-5 % Lymphs L 11.0 20-40 % [place] 6.0 0-10 % Eos H 35.0 0-7 % :05:00 Result Normal Range Units WBC H 15.8 4.8-10.8 103/uL RBC L 4.2 4.7-6.1 106/uL HGB L 12.6 13.0-18.0 g/dl HCT L 35.8 41.9-52.0 % MCV 85.0 80-94 FL MCH 29.9 27-31 pg MCHC 35.2 33-37 g/dl RDW 13.3 11.5-15.5 % PLT 256 130-400 103/uL MPV 10.3 7.3-10.4 FL :10:00 Result Normal Range Units WBC H 20.2 4.8-10.8 103/uL RBC 5.1 4.7-6.1 106/uL HGB 15.4 13.0-18.0 g/dl HCT 43.4 41.9-52.0 % MCV 85.1 80-94 FL MCH 30.2 27-31 pg MCHC 35.5 33-37 g/dl RDW 13.1 11.5-15.5 % PLT 349 130-400 103/uL MPV 10.2 7.3-10.4 FL Segs 59.0 40-70 % Bands 4.0 0-5 % Lymphs L 16.0 20-40 % [place] 7.0 0-10 % Eos H 14.0 0-7 % Microbiology [id number]:25:00 C. [place]ific[place] Toxin Negative for C. diff toxin A and/or B Special Chemistry :10:00 Result Normal Range Units Hemoglobin A1C 5.9 4.5-6.2 % Body Fluid :15:00 Result Normal Range Units pH 6.0 4.5-8.0 Cardiac :08:00 Result Normal Range Units CK 92 39-308 IU/L CKMB 1.3 0-3.6 ng/ml Patient samples may contain heterophilic [...] patient history should be interpreted with caution. :57:00 Result Normal Range Units CK 93 39-308 IU/L CKMB 1.2 0-3.6 ng/ml Patient samples may contain heterophilic [...] patient history should be interpreted with caution. [id number]:50:00 Result Normal Range Units CK 97 39-308 IU/L CKMB 1.1 0-3.6 ng/ml Patient samples may contain heterophilic [...] should be interpreted with caution. Radiology Results [id number]:20:00 Result Normal Range Units MPV 10.1 7.3-10.4 FL [id number]:28:00 CT ABD/PEL W CONTRAST PACs Image DATE OF EXAM: Apr 10 2015 [id number] ABD/PELV W CONTRAST : RADIOLOGY REPORT DATE OF SERVICE: 04/10/15 HISTORY: Lower abdominal pain, nausea, leukocytosis CT ABDOMEN AND PELVIS WITH [id number] HOURS Axial scans were obtained at 5 mm intervals. 100 mL Isovue-300 was utilized for intravenous enhancement. The liver, spleen, and pancreas are normal. The gallbladder is surgically absent. The bile ducts are normal in caliber. The kidneys and adrenal glands are normal. There is no pancreatic mass or inflammation. The ascending, transverse, and descending segments of the colon appear abnormal with some wall thickening and luminal attenuation diffusely. There are no pericolic inflammatory changes. The rectosigmoid colon appears relatively normal. There is a transsacral stimulator in place on the right. The bladder appears normal. The ureters are unobstructed. Scans through the lung bases reveal mild right basilar scarring and old healed right lower rib fractures. IMPRESSION: 1. Thickening involving the ascending, transverse, and descending segments of the colon suggests colitis. The appearance is nonspecific, but probably infectious. 2. Status post cholecystectomy. 3. No other significant abdominal or pelvic abnormality. MD ANATOLY Arvizu/isael04/10/2015 11:53:00 04/10/2015 12:33:14 cc:Mima Erazo APRN This document has been electronically Signed by: On: DATE OF EXAM: Apr 10 2015 [id number] ABD/PELV W CONTRAST : RADIOLOGY REPORT DATE OF SERVICE: 04/10/15 HISTORY: Lower abdominal pain, nausea, leukocytosis CT ABDOMEN AND PELVIS WITH [id number] HOURS Axial scans were obtained at 5 mm intervals. 100 mL Isovue-300 was utilized for intravenous enhancement. The liver, spleen, and pancreas are normal. The gallbladder is surgically absent. The bile ducts are normal in caliber. The kidneys and adrenal glands are normal. There is no pancreatic mass or inflammation. The ascending, transverse, and descending segments of the colon appear abnormal with some wall thickening and luminal attenuation diffusely. There are no pericolic inflammatory changes. The rectosigmoid colon appears relatively normal. There is a transsacral stimulator in place on the right. The bladder appears normal. The ureters are unobstructed. Scans through the lung bases reveal mild right basilar scarring and old healed right lower rib fractures. IMPRESSION: 1. Thickening involving the ascending, transverse, and descending segments of the colon suggests colitis. The appearance is nonspecific, but probably infectious. 2. Status post cholecystectomy. 3. No other significant abdominal or pelvic abnormality. MD ANATOLY Arvizu/isael04/10/2015 11:53:00 04/10/2015 12:33:14 cc:Mima Erazo APRN This document has been electronically Signed by: JOSE ALVAREZ MD On: Apr 10 20151:28P LEUKOCYTOSIS NAUSEA VOMITING ABD PAIN Result Amended on 2015-04-10 at 13:28:09. Previous status was NE. LEUKOCYTOSIS NAUSEA VOMITING ABD PAIN [id number]:05:00 Result Normal Range Units MPV 10.3 7.3-10.4 FL [id number]:22:00 Abdomen 2 View PACs Image DATE OF EXAM: Apr 08 2015 RAD 0037-ABDOMEN 2 VIEW : RADIOLOGY REPORT DATE OF SERVICE: April 08, 2015 HISTORY: Abdominal pain, nausea and vomiting. ABDOMEN - 2 [id number] HOURS Comparison is made with 09/23/2014. The bowel gas pattern is normal. There is no obstruction or ileus. There is no free air. Surgical clips are noted in the right upper quadrant. There is a transsacral stimulator in place on the right side. There are no pathological renal calcifications. IMPRESSION: Negative abdomen. MD ANATOLY Arvizu/syed 04/08/2015 15:08:00 / 04/08/2015 15:19:05 cc:Mima rEazo APRN This document has been electronically Signed by: On: DATE OF EXAM: Apr 08 2015 RAD 0037-ABDOMEN 2 VIEW : RADIOLOGY REPORT DATE OF SERVICE: April 08, 2015 HISTORY: Abdominal pain, nausea and vomiting. ABDOMEN - 2 [id number] HOURS Comparison is made with 09/23/2014. The bowel gas pattern is normal. There is no obstruction or ileus. There is no free air. Surgical clips are noted in the right upper quadrant. There is a transsacral stimulator in place on the right side. There are no pathological renal calcifications. IMPRESSION: Negative abdomen. MD ANATOLY Arvizu/syed 04/08/2015 15:08:00 / 04/08/2015 15:19:05 cc:Mima Erazo APRN This document has been electronically Signed by: JOSE ALVAREZ MD On: Apr 08 20154:22P LEUKOCYTOSIS NAUSEA VOMITING ABD PAIN Result Amended on 2015-04-08 at 16:23:02. Previous status was NE. LEUKOCYTOSIS NAUSEA VOMITING ABD PAIN Chest X-Ray - 2 View PACs Image DATE OF EXAM: Apr 08 2015 RAD 0300-CHEST XRAY 2 VIEW : RADIOLOGY REPORT DATE OF SERVICE: 04/08/15 HISTORY:Nausea, vomiting, diarrhea, suspected sepsis. CHEST 2 VIEWS 1300 HOURS Comparison is made with 09/23/14. There is chronic blunting of the right lateral costophrenic angle. Postsurgical and/or post-traumatic changes are noted involving the right lateral ribs, and these also appear chronic. The lungs are free of acute infiltrates. Heart size and pulmonary vessels are normal. There is no pleural effusion. IMPRESSION:No acute chest abnormality and no significant change from 09/23/14. MD ANATOLY Arvizu/amy06/08/2014 13:29:00 / 04/08/2015 13:49:08 cc:Mima Erazo APRN This document has been electronically Signed by: On: DATE OF EXAM: Apr 08 2015 RAD 0300-CHEST XRAY 2 VIEW : RADIOLOGY REPORT DATE OF SERVICE: 04/08/15 HISTORY:Nausea, vomiting, diarrhea, suspected sepsis. CHEST 2 VIEWS 1300 HOURS Comparison is made with 09/23/14. There is chronic blunting of the right lateral costophrenic angle. Postsurgical and/or post-traumatic changes are noted involving the right lateral ribs, and these also appear chronic. The lungs are free of acute infiltrates. Heart size and pulmonary vessels are normal. There is no pleural effusion. IMPRESSION:No acute chest abnormality and no significant change from 09/23/14. MD ANATOLY Arvizu/pb106/08/2014 13:29:00 / 04/08/2015 13:49:08 cc:Mima Erazo APRN This document has been electronically Signed by: JOSE ALVAREZ MD On: Apr 08 20154:22P LEUKOCYTOSIS NAUSEA VOMITING ABD PAIN Result Amended on 2015-04-08 at 16:22:59. Previous status was NE. LEUKOCYTOSIS NAUSEA VOMITING ABD PAIN [id number]:10:00 Result Normal Range Units MPV 10.2 7.3-10.4 FL Reference Lab (send out) [id number]:25:00 Result Normal Range Units Campylobacter Culture SEE NOTE CAMPYLOBACTER, CULTURE MICRO NUMBER:[id number] TEST STATUS: FINAL SPECIMEN SOURCE: STOOL SPECIMEN QUALITY:ADEQUATE RESULT:No enteric Campylobacter isolated TEST PERFORMED AT: [id number] [address] MASON CHRISTIANSEN MD Stool Culture SEE NOTE SALMONELLA AND SHIGELLA, CULTURE MICRO NUMBER:[id number] TEST STATUS: FINAL SPECIMEN SOURCE: STOOL SPECIMEN QUALITY:ADEQUATE RESULT:No Salmonella or Shigella isolated TEST PERFORMED AT: [address] [address] MASON CHRISTIANSEN MD Shigatoxins SEE NOTE SHIGA TOXINS, EIA W/RFL 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 CULTURE MICRO NUMBER:[id number] TEST STATUS: FINAL SPECIMEN SOURCE: STOOL SPECIMEN QUALITY:ADEQUATE RESULT:Not Detected TEST PERFORMED AT: [address] [address] MASON CHRISTIANSEN MD History of procedures Procedure Code Code Type Description Date Performed Performing Physician [id number] ICD10 Excision of Stomach, Pylorus, Endo, Diagn 04-11-2015 DOMINGA RODRÍGUEZ [id number] ICD10 Excision of Middle Esophagus, Endo, Diagn 04-11-2015 DOMINGA RODRÍGUEZ [id number] ICD10 Excision of Lower Esophagus, Endo, Diagn 04-11-2015 DOMINGA RODRÍGUEZ [id number] ICD10 Excision of Cecum, Endo, Diagn 04-11-2015 DOMINGA RODRÍGUEZ [id number] ICD10 Excision of Rectum, Endo, Diagn 04-11-2015 DOMINGA RODRÍGUEZ [id number] ICD10 Excision of Transverse Colon, Endo, Diagn 04-11-2015 DOMINGA RODRÍGUEZ [id number] ICD10 Excision of Descending Colon, Endo, Diagn 04-11-2015 DOMINGA RODRÍGUEZ Functional status Functional Status Finding Observation Time Vision Problems yes :00 Vision Correct Dev glasses [id number]:00 Ambulation Asst Dev none 70-14-731096:00 Range of Motion full :12 Muscle Strength RUE 5 ROM full resist 99-59-288844:12 Muscle Strength RLE 5 ROM full resist :12 Muscle Strength LUE 5 ROM full resist 58-38-371099:12 Muscle Strength LLE 5 ROM full resist :12 Transfers assist x 1 :12 Ambulation in room :12 Balance unsteady :12 Bathing Assistance minimal 53-70-243703:00 Eating Assistance none 19-46-390515:00 Dressing Assistance none :00 Toileting Assistance minimal [id number]:00 Transfer Assistance none Comment: SBA :00 Decline Slf Care/Mob no :00 Phys Cond Stable no :00 Nutrition nausea :12 Diet clear :12 Oral Cavity moist and intact : Teeth missing (specify) Comment: several :12 Dental Hygiene poor :12 Abdomen Appearance round :12 Abdomen soft :12 Bowel Sounds present :12 NG Tube no :12 Feeding Tube none :12 Melgoza no :12 Cont Bladder Irr no :12 Ostomy no :12 Stool diarrhea Comment: per report, none at this time :12 Color green :22 Consistency liquid :22 Urination dysuria Comment: difficulty urinating, per pt, none at this time :12 Urine Clarity clear :53 Urine Color yellow :53 Quality sym/unlabored :12 Cough absent :12 Secretions no :12 Breath Sounds RUL clear :12 Breath Sounds RML clear :12 Breath Sounds RLL clear :12 Breath Sounds ROSALIND clear :12 Breath Sounds LLL clear :12 Airway natural :12 Chest Tube no :12 Oxygen no :54 Oxygen Mask Type nasal cannula :47 Oxygen Flow Rate RA :20 C-PAP no :12 BI-PAP no :12 Temp >100.4 no :12 Temp <96.8 no :12 Chills with rigors no :12 HR > 90bpm no :12 Respirations > 20 no :12 Systolic <90 no :12 headache stiff neck no :12 WBC > 08964 yes Comment: 14.6 per 04/11 lab :12 WBC < 4000 no :12 Rapid Resp no :12 IV Site Location Left arm : IV Type peripheral :00 IV Site Information discontinued : IV Site Yair 20 :11 IV Site Appearance WNL :11 IV Site Color clear : IV Site Patent yes :11 Dressing Changed no (explain) Comment: c/d/i : Dressing Type occlusive :11 Nursing Note Order recieved for discharge. Vitals taken, home care instructions and med rec given to [facility]. Report called. Pt denies any needs or concerns. :30 Cognitive Status Finding Observation Time Oriented To Date 5 Yes : Oriented To Place 5 Yes :00 Name 3 Objects 3 Yes :00 Name Object in Rm 2 Yes : Recall 3 Objects 3 Yes : Repeats a Phrase 1 Yes : Follows Verbal Direc 3 Yes : Follows Written Dire 0 No : Write a Sentance 0 No : Draw an Object 1 Yes :00 Mini Mental Total 23 points : Less than 20 Phys not applicable : Learning Ability learning disability :16 Neurological yes :16 Psychological no :16 Physical no :16 Hearing yes :16 Oxygen Therapy Teacher Needed no :16 Sign Language no :16 Emotional no :16 Vision yes :16 Laguage no :16 Financial no :16 Vital signs Type Value Date Respiration Rate 18breaths per minute :54 Pulse 120beats per minute :54 Oxygen Saturation 97% :54 BP Systolic 123mmHg :54 BP Diastolic 88mmHg :54 Temperature 98.7F :54 Height 72inches :32 Weight 219.7LB 82-00-890376:56 Social history Type Value Smoking Status FORMER SMOKER Treatment Plan No treatment plan text is available for this visit. Hospital discharge instructions Discharge Date/Time 04-12-2015 Accompanied By [facility] home nurse Relationship other (explain) Dismissal Condition good Disposition on DC home Valuables yes Valuable Type [place]fold/purse Valuables Returned T patient DC Inst/Educ Give yes Exit Care Educ Given yes Med/Side Effects Rev yes DC Med Rec Rev yes Immun Indicated no PNE Vac current Flu Vac 03-05-2015 Tetanus Vac 2009 Diet Explained yes Follow up appt call for appointment Follow Up Appt D/T 1-2 weeks
--- OUTSIDE RECORDS SUMMARY | 2018-07-02 11:51 | XMS REPORT ---
Author Author [facility] Medical Staff Organization [facility] Address [address] [id number] Phone [phone] Care Team Providers Care Filler Picker Name Role Phone MIMA ERAZO APRN PP [phone] MIMA ERAZO APRN, PP [phone] Summary purpose TRANSITION OF CARE AUTO GENERATION [...] milligram (s) oral Twice a day Current Manton-3 capsule 1 gram(s) oral Daily Current tolterodine [...] Relevant diagnostic tests and/or laboratory data RESULTS [id number]:43:00 Discharge Summary DISCHARGE SUMMARY ADMITTING DIAGNOSIS: 1. [...] 30 mg twice a day for pain. Manton-3 capsule 1 g daily. Tolterodine 2 mg [...] 04/12/2015 08:43:26/04/12/2015 10:42:45 Clinic [facility]: [facility] [address] [place] [address] <END HEADER> [id number]:15:00 Progress Note PROGRESS NOTE 04/11/2015 08:15:20 S:Mr. [...] Hutton/jt 04/11/2015 08:15:20/04/11/2015 08:58:27 Clinic Code: cc: <[facility] [address] [address]<END HEADER> [id number]:26:00 Progress Note PROGRESS NOTE 04/10/2015 08:26:42 ADDENDUM I was able to find his last colonoscopy that was done by Dr. Castaneda in December 2010 and was normal. ALBAN Hutton/cdj106/10/2014 08:26:42/04/10/2015 10:46:18 Clinic Code: cc: <[facility] [address] [address]<END HEADER> [id number]:24:00 Progress Note PROGRESS NOTE 04/10/2015 08:24:24 S: [...] [place]/cdj106/10/2014 08:24:24/04/10/2015 10:40:27 Clinic Code: [facility]: [facility] [address] [place] [address]<END HEADER> [id number]:32:00 Progress Note PROGRESS NOTE 04/09/2015 08:32:59 S:Mr. [...] [place]/cdj106/09/2014 08:32:59/04/09/2015 10:16:45 [facility]: [facility] [address] [place] [address]<END HEADER> Routine Urinalysis [id number]:15:00 Result Normal Range Units Color YELLOW Clarity Clear Specific [place] 1.025 1.003-1.035 pH 6.0 4.5-8.0 Glucose NEGATIVE Bilirubin 1+ Ketones 1+ Protein NEGATIVE Urobilinogen 0.2 0-0.2 E.U./dL Nitrites NEGATIVE Blood NEGATIVE Leukocytes NEGATIVE WBCs No WBC's Seen RBCs 0-5 Squamous Epithelial No Squamous Epithelial Cells seen. Blood Cultures [id number]:10:00 Blood Culture Plate Date and Time 04/08/2015 13:16 SourceBLOOD CULTURE REPORT NoGrowth at 1 day. Unless otherwise notified. Final report in 5 Days. Release Date/Time: 04/09/2015 07:32 [id number]:00:00 Blood Culture Plate Date and Time 04/08/2015 13:16 SourceBLOOD CULTURE REPORT NoGrowth at 1 day. Unless otherwise notified. Final report in 5 Days. Release Date/Time: 04/09/2015 07:32 Chemistry [id number]:20:00 Result Normal Range Units Sodium 138 134-145 [...] 10-20 Estimated GFR L 44 >=60 mL/min/1.7 :10:00 Result Normal Range Units Sodium L 130 [...] mL/min/1.7 Lactic Acid 1.0 0.4-2.0 mmol/L Hematology :20:00 Result Normal Range Units WBC H 14.6 4.8-10.8 103/uL RBC L 4.0 4.7-6.1 106/uL HGB L 12.1 13.0-18.0 g/dl HCT L 34.7 41.9-52.0 % MCV 85.9 80-94 FL MCH 30.0 27-31 pg MCHC 34.9 33-37 g/dl RDW 13.6 11.5-15.5 % PLT 206 130-400 103/uL MPV 10.1 7.3-10.4 FL Segs 47.0 40-70 % Bands 1.0 0-5 % Lymphs L 11.0 20-40 % [place] 6.0 0-10 % Eos H 35.0 0-7 [...] 0-5 % Lymphs L 16.0 20-40 % [place] 7.0 0-10 % Eos H 14.0 0-7 % Microbiology [id number]:25:00 C. Dificile Toxin Negative for C. diff [...] patient history should be interpreted with caution. [id number]:50:00 Result Normal Range Units CK 97 39-308 [...] should be interpreted with caution. Radiology Results [id number]:20:00 Result Normal Range Units MPV 10.1 7.3-10.4 FL [id number]:28:00 CT ABD/PEL W CONTRAST PACs Image DATE OF EXAM: Apr 10 2015 [id number] ABD/PELV W CONTRAST : RADIOLOGY REPORT DATE OF SERVICE: 04/10/15 HISTORY: Lower abdominal pain, nausea, leukocytosis CT ABDOMEN AND PELVIS WITH [id number] HOURS Axial scans were obtained at 5 [...] significant abdominal or pelvic abnormality. MD ANATOLY Arvizu/ak04/10/2015 11:53:00 / 04/10/2015 12:33:14 cc:Mima Erazo APRN This document has been electronically Signed by: On: DATE OF EXAM: Apr 10 2015 [id number] ABD/PELV W CONTRAST : RADIOLOGY REPORT DATE OF SERVICE: 04/10/15 HISTORY: Lower abdominal pain, nausea, leukocytosis CT ABDOMEN AND PELVIS WITH [id number] HOURS Axial scans were obtained at 5 [...] or pelvic abnormality. MD ANATOLY Arvizu/isael04/10/2015 11:53:00 / 04/10/2015 12:33:14 cc:Mima Erazo APRN This document has been electronically Signed by: JOSE ALVAREZ MD On: Apr 10 20151:28P LEUKOCYTOSIS NAUSEA VOMITING ABD PAIN Result Amended on 2015-04-10 at 13:28:09. Previous status was [place]. LEUKOCYTOSIS NAUSEA VOMITING ABD PAIN [id number]:05:00 Result Normal Range Units MPV 10.3 7.3-10.4 FL [id number]:22:00 Abdomen 2 View PACs Image DATE OF EXAM: Apr 08 2015 RAD [id number] VIEW : RADIOLOGY REPORT DATE OF SERVICE: April 08, 2015 HISTORY: Abdominal pain, nausea and vomiting. ABDOMEN - 2 [id number] HOURS Comparison is made with 09/23/2014. The [...] pain, nausea and vomiting. ABDOMEN - 2 [id number] HOURS Comparison is made with 09/23/2014. The bowel gas pattern is normal. There is no obstruction or ileus. There is no free air. Surgical clips are noted in the right upper quadrant. There is a transsacral stimulator in place on the right side. There are no pathological renal calcifications. IMPRESSION: Negative abdomen. MD ANATOLY Arvizu/syed 04/08/2015 15:08: / 04/08/2015 15:19:05 cc:Mima Erazo APRN This document has been electronically Signed by: JOSE ALVAREZ MD On: Apr 08 20154:22P LEUKOCYTOSIS NAUSEA VOMITING ABD PAIN Result Amended on 2015-04-08 at 16:23:02. Previous status was [place]. LEUKOCYTOSIS NAUSEA VOMITING ABD PAIN Chest X-Ray [...] no significant change from 09/23/14. MD ANATOLY Arvizu/[facility]06/08/2014 13:29:00 / 04/08/2015 13:49:08 cc:Mima Erazo APRN This document has been electronically Signed by: JOSE ALVAREZ MD On: Apr 08 20154:22P LEUKOCYTOSIS NAUSEA VOMITING ABD PAIN Result Amended on 2015-04-08 at 16:22:59. Previous status was [place]. LEUKOCYTOSIS NAUSEA VOMITING ABD PAIN [id number]:10:00 Result Normal Range Units MPV 10.2 7.3-10.4 FL History of procedures No procedures recorded for this patient visit. Functional status Functional Status Finding Observation Time Vision Problems yes :00 Vision Correct Dev glasses [id number]:00 Ambulation Asst Dev none :00 Range of Motion full :12 Muscle Strength RUE 5 ROM full resist 48-70-924781:12 Muscle Strength RLE 5 ROM full resist 29-21-985779:12 Muscle Strength LUE 5 ROM full resist 52-55-391627:12 Muscle Strength LLE 5 ROM full resist 58-65-176723:12 Transfers assist x 1 69-68-832380:12 Ambulation in room :12 Balance unsteady :12 Bathing Assistance minimal :00 Eating Assistance none : Dressing Assistance none : Toileting Assistance minimal : Transfer Assistance none Comment: SBA : Decline Slf Care/Mob no :00 Phys Cond Stable no :00 Nutrition nausea :12 Diet clear :12 Oral Cavity moist and intact :12 Teeth missing (specify) Comment: several :12 Dental Hygiene poor :12 Abdomen Appearance round :12 Abdomen soft : Bowel Sounds present :12 NG Tube no [...] headache stiff neck no :12 WBC > 89399 yes Comment: 14.6 per 04/11 lab :12 WBC < 4000 no :12 Rapid Resp no :12 IV Site Location Left arm :00 IV Type peripheral :00 IV Site Information discontinued :00 IV Site Yair 20 :11 IV Site Appearance WNL :11 IV Site Color clear :11 IV Site Patent yes :11 Dressing Changed no (explain) Comment: c/d/i :11 Dressing Type occlusive :11 Nursing Note Order recieved for discharge. Vitals taken, home care instructions and med rec given to both patient nurse at [facility]. Report called. Pt denies any needs or concerns. 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 Hospital discharge instructions Discharge Date/Time 04-12-2015 Accompanied By guest home nurse Relationship other (explain) Dismissal Condition [...]
--- OUTSIDE RECORDS SUMMARY | 2018-07-02 11:52 | XMS REPORT ---
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 Active 16167911 Problem Chronic pain due to trauma G89.21 Active 945636427 Problem Cystitis N30.90 Active 42807451 Problem Hyperlipidemia, unspecified hyperlipidemia type E78.5 Active 86894617 Problem 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 Active 95783407 Problem History of traumatic brain injury Z87.820 Active 57547004259779 Problem Persistent migraine aura without cerebral infarction and without status migrainosus, not intractable G43.509 Active 298336399 Problem Recurrent major depressive disorder, in partial remission F33.41 Active 90164791 Problem Traumatic brain injury, without LOC, initial encounter S06.9X0A Active 796876837 Problem Benign prostatic hyperplasia with lower urinary tract symptoms, unspecified morphology N40.1 Active 589425455 Problem Intractable chronic migraine without aura and without status migrainosus G43.719 Active 443843897 Problem Glaucoma, unspecified glaucoma, unspecified laterality H40.9 Active 07916238 Problem Weak urinary stream R39.12 Active 69546796 Problem Rad (reactive airway disease), mild intermittent, uncomplicated J45.20 Active 567888615004 Problem Obsessive-compulsive disorder, unspecified type F42.9 Active 756456530 Problem Herpes B00.9 Active 96168836 Problem Gastroesophageal reflux disease without esophagitis K21.9 Active 590540019 Problem Anemia, unspecified type D64.9 Active 212809660 Problem Essential hypertension I10 Active 50322309 Problem Type 2 diabetes mellitus with unspecified complications E11.8 Active 04315614 Problem History of gout Z87.39 Active 293928710 Problem Anxiety F41.9 Active 92267375 ALLERGIES Substance Reaction Event Type Date Status Prozac Unknown Drug Allergy Dec, Active Penicillin V Potassium Unknown Drug Allergy Dec, Active Abilify Unknown Drug Allergy Dec, Active ENCOUNTERS Encounter Location Date Diagnosis [facility] [address] [place] [address] Feb, [facility] [address] [place] [address] Jan, [facility] [address] [place] [address] Dec, Anxiety F41.9 ; Traumatic brain injury, without LOC, initial encounter S06.9X0A ; Intractable chronic migraine without aura and without status migrainosus G43.719 ; Recurrent major depressive disorder, in partial remission F33.41 ; 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 and Cystitis N30.90 [facility] [address] [place] [address] Dec, Anxiety F41.9 ; Traumatic brain injury, without LOC, initial encounter S06.9X0A ; Intractable chronic migraine without aura and without status migrainosus G43.719 ; Recurrent major depressive disorder, in partial remission F33.41 and 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 [place] [id number] [place] [address] Oct, [facility] [address] [place] [id number] Oct, Excessive anger R45.4 and Obsessive-compulsive disorder, unspecified type F42.9 [place] [address] [address] Oct, Anxiety F41.9 ; Traumatic brain injury, without LOC, initial encounter S06.9X0A ; Intractable chronic migraine without aura and without status migrainosus G43.719 and Recurrent major depressive disorder, in partial remission F33.41 [place] [address] [address] Oct, [facility] [address] [place] [address] 49[address] Oct, [facility] [address] [address] Oct, [facility] [address] [place] [address] September, Anxiety F41.9 ; Traumatic brain injury, without LOC, initial encounter S06.9X0A ; Intractable chronic migraine without aura and without status migrainosus G43.719 and Recurrent major depressive disorder, in partial remission F33.41 [facility] [address] [place] [id number] September, Weight gain R63.5 and Type 2 diabetes mellitus with unspecified complications E11.8 [facility] [address] [place] [address] 69[address] September, [facility] [address] [place] [id number] [place] [address] 40[address] Aug, [facility] [address] [place] [address] Aug, [facility] [address] [place] [address] 20154[address] 0[address] Aug, [facility] [address] [place] [address]7300[address] 6[address] Jul, Intractable chronic migraine without aura and without status migrainosus G43.719 [facility] [address] [address] Jul, Intractable chronic migraine without aura and without status migrainosus G43.719 [facility] [address] [place] [id number] Jul, History of traumatic brain injury Z87.820 ; Recurrent major depressive disorder, in partial remission F33.41 and Type 2 diabetes mellitus with unspecified complications E11.8 [facility] [id number] [id number] 12 Jul, 2017 [facility] [address] [place] [id number] [place] [id number] Jul, Intractable chronic migraine without aura and without status migrainosus G43.719 [facility] [id number] [address] Jun, Anxiety F41.9 ; Traumatic brain injury, without LOC, initial encounter S06.9X0A ; Intractable chronic migraine without aura and without status migrainosus G43.719 and Recurrent major depressive disorder, in partial remission F33.41 [facility] [address] [id number] [id number] Jun, [facility] [address] [address] Jun, [facility] [id number] [place] [id number] Jun, Intractable chronic migraine without aura and without status migrainosus G43.719 [facility] [address] [address] May, [facility] [address] [place] [id number] May, Recurrent major depressive disorder, in partial remission F33.41 ; Traumatic brain injury, without LOC, initial encounter S06.9X0A and Anxiety F41.9 [facility] [address] [place] [id number] [address] May, [facility] [id number] [address] May, [facility] [address] [place] [id number] [address] May, Intractable chronic migraine without aura and without status migrainosus G43.719 [facility] [id number] [address] Apr, Anxiety F41.9 ; Traumatic brain injury, without LOC, initial encounter S06.9X0A ; Intractable chronic migraine without aura and without status migrainosus G43.719 and Recurrent major depressive disorder, in partial remission F33.41 [facility] [address] [address] Apr, [facility] [address] [place] [id number] [place] [id number] Apr, Intractable chronic migraine without aura and without status migrainosus G43.719 [facility] [address] [address] Apr, [facility] [address] [place] [id number] [place] [address] 999930- 9395 Apr, [facility] [address] [place] [address] [id number] [place] [id number] Mar, [facility] [address] [place] [address] [id number] [place] [address] [id number]- 2640 Mar, [facility] [address] [place] [id number] [place] [address] [id number] Mar, [facility] [address] [place] [address] 69150[address] 2140 Mar, Intractable chronic migraine without aura and without status migrainosus G43.719 [facility] [address] [place] [id number] Mar, Encounter for examination for admission to long term Z02.2 ; History of traumatic brain injury Z87.820 ; Recurrent major depressive disorder, in partial remission F33.41 ; Anxiety F41.9 ; Obsessive-compulsive disorder, unspecified type F42.9 ; Essential hypertension I10 and Type 2 diabetes mellitus with unspecified complications E11.8 [facility] [id number] [address] Feb, [facility] [address] [place] [address] 35177[address] 69[address] Feb, Obsessive-compulsive disorder, unspecified type F42.9 ; Anxiety F41.9 and Recurrent major depressive disorder, in partial remission F33.41 [facility] [address] [place] [address] 48283- 1164 27 Jan, 2017 Traumatic brain injury, without LOC, initial encounter S06.9X0A ; Intractable chronic migraine without aura and without status migrainosus G43.719 ; Anxiety F41.9 and Recurrent major depressive disorder, in partial remission F33.41 [facility] [address] [id number] [address] 20 Jan, 2017 Intractable chronic migraine without aura and without status migrainosus G43.719 [facility] [id number] [address] 19 Jan, 2017 History of traumatic brain injury Z87.820 ; Anxiety F41.9 and Recurrent major depressive disorder, in partial remission F33.41 [facility] [id number] [address] 13 Jan, 2017 [facility] [address] [id number] 07 Jan, 2017 History of traumatic brain injury Z87.820 and Obsessive-compulsive disorder, unspecified type F42.9 [facility] [id number] [address] 06 Jan, 2017 Traumatic brain injury, without LOC, initial encounter S06.9X0A ; Intractable chronic migraine without aura and without status migrainosus G43.719 ; Anxiety F41.9 and Recurrent major depressive disorder, in partial remission F33.41 [facility] [id number] [address] 05 Jan, 2017 History of traumatic brain injury Z87.820 ; Obsessive- compulsive disorder, unspecified type F42.9 ; Anxiety F41.9 and Recurrent major depressive disorder, in partial remission F33.41 [facility] [id number] [place] [id number] Dec, [facility] [id number] [address] Dec, Intractable chronic migraine without aura and without status migrainosus G43.719 [facility] [address] [place] [id number] 22 Dec, 2016 Type 2 diabetes mellitus with unspecified complications E11.8 and Essential hypertension I10 [facility] [address] [place] [id number] [place] [address] 31280- 0733 18 Dec, 2016 Traumatic brain injury, without LOC, initial encounter S06.9X0A [facility] [address] [place] [id number] [place] [address] 84293- 5879 16 Dec, 2016 Traumatic brain injury, without LOC, initial encounter S06.9X0A ; Intractable chronic migraine without aura and without status migrainosus G43.719 ; Anxiety F41.9 and Recurrent major depressive disorder, in partial remission F33.41 [facility] [address] [place] [address] [id number] [place] [address] 52663- 1786 15 Dec, 2016 [facility] [address] [place] [address] [id number] [place] [address] 95119- 7710 11 Dec, 2016 History of traumatic brain injury Z87.820 ; Obsessive- compulsive disorder, unspecified type F42.9 ; Anxiety F41.9 and Recurrent major depressive disorder, in partial remission F33.41 [facility] [address] [address] [id number] [place] [address] 24510- 9648 09 Dec, 2016 Traumatic brain injury, without LOC, initial encounter S06.9X0A [facility] [address] [place] [address] 91703- 8837 03 Dec, 2016 Anxiety F41.9 and Recurrent major depressive disorder, in partial remission F33.41 [facility] [address] [place] [address] 50523- 9524 02 Dec, 2016 Traumatic brain injury, without LOC, initial encounter S06.9X0A ; Intractable chronic migraine without aura and without status migrainosus G43.719 ; Anxiety F41.9 and Recurrent major depressive disorder, in partial remission F33.41 [facility] [address] [place] [address] 99508- 5740 Dec, [facility] [address] [place] [address] [id number] [place] [address] [place] [id number] Nov, Intractable chronic migraine without aura and without status migrainosus G43.719 On License Of [facility] [address] [id number] Nov, Obsessive-compulsive disorder, unspecified type F42.9 ; Anxiety F41.9 and Intractable chronic migraine without aura and without status migrainosus G43.719 [facility] [address] [id number] [address]- 8280 Nov, Traumatic brain injury, without LOC, initial encounter S06.9X0A ; Intractable chronic migraine without aura and without status migrainosus G43.719 ; Anxiety F41.9 and Recurrent major depressive disorder, in partial remission F33.41 [facility] [address] [address] [id number] [id number] Nov, [facility] [address] [place] [id number] [place] [address] 59161- 9579 Nov, Anxiety F41.9 and Recurrent major depressive disorder, in partial remission F33.41 [facility] [address] [place] [id number] [address]- 1252 Nov, [facility] [address] [place] [address] [id number] [place] [address] [id number] Nov, [facility] [address] [address]- 5434 Oct, [facility] [address] [place] [address] 39316- 7508 Oct, Anxiety F41.9 and Recurrent major depressive disorder, in partial remission F33.41 [facility] [address] [place] [address] 67922- 9023 Oct, [facility] [address] [place] [address] [id number]- 5325 September, Anxiety F41.9 and Recurrent major depressive disorder, in partial remission F33.41 [facility] [address] [place] [address] 04053- 2347 September, Traumatic brain injury, without LOC, initial encounter S06.9X0A ; Intractable chronic migraine without aura and without status migrainosus G43.719 ; Anxiety F41.9 and Recurrent major depressive disorder, in partial remission F33.41 [facility] [address] [address]- 3246 September, [facility] [address] [place] [address] 02412- 8156 September, Anxiety F41.9 [place] [address] [place] [address] 29025- 1952 September, [place] [address] [place] [id number] [place] [address] [id number] September, Type 2 diabetes mellitus with unspecified complications E11.8 [place] [address] [place] [id number] [place] [address] [id number] September, Type 2 diabetes mellitus with unspecified complications E11.8 On License Of [facility] [address] [place] [address] [id number] September, Essential hypertension I10 and History of traumatic brain injury Z87.820 [place] [address] [place] [address] 94745- 4298 Aug, On [facility] [address] [place] [address] [id number] Aug, Type 2 diabetes mellitus with unspecified complications E11.8 and Benign prostatic hyperplasia with lower urinary tract symptoms, unspecified morphology N40.1 [facility] [id number] [id number] Aug, [place] [address] [address]- 4315 Aug, [place] [address] [address] 7966 Jul, Traumatic brain injury, without LOC, initial encounter S06.9X0A ; Intractable chronic migraine without aura and without status migrainosus G43.719 ; Anxiety F41.9 and Recurrent major depressive disorder, in partial remission F33.41 [facility] [address] [address]- 9882 Jul, [facility] [address] [place] [id number] [place] [address] 72338- 7168 Jul, [facility] [address] [id number] [place] [address] [id number] Jun, [facility] [address] [id number] [place] [address] 51609- 4864 Jun, [facility] [address] [place] [id number] [place] [address] 55848- 3700 Jun, On License Of [facility] [address] [id number] Jun, Encounter to establish care Z76.89 [facility] [id number] [place] [address] 24161- 1079 Jun, [facility] [address] [place] [address] 77908- 1068 Jun, [facility] [id number] [place] [address] 80500- 5721 Jun, [facility] [address] [place] [address] 83886- 4001 Jun, [facility] [address] [place] [address] May, [facility] Z01.20 [facility] [address] [place] [address] Dec, Dental examination Z01.20 [facility] [address] [place] [address] September, Dental examination Z01.20 [facility] [address] [place] [address] Dec, Dental examination V72.2 [facility] [id number] [place] [address] 09732- 2546 Aug, [facility] [address] [facility] [id number] [address]- 1306 Aug, [facility] [address] [id number] [address]- 5326 Apr, [facility] [id number] [address]- 0458 Nov, [facility] [address] [address]- 3285 Nov, [facility] [id number] [address]- 8680 Nov, [facility] [id number] [address]- 8109 Nov, [facility] [id number] [address]- 6589 Oct, [facility] [id number] [address]- 8590 May, [facility] [address] [facility] [id number] [address] 0[address] May, IMMUNIZATIONS No Known Immunizations SOCIAL HISTORY Never Assessed REASON FOR VISIT BH f/u, Pt presents with worse hallucinations and behaviors. He is reported to be compliant with his medications Most is focus on devil latter day . Yulissa Wyatt RN, Pt is not sleeping. ESC RN, Stressing out other patients and staff ESC RN, 165/79 - ESC RN PLAN OF CARE Activity Details Follow Up Next available, 4 Weeks Reason: VITAL SIGNS Height 72.0 in 2018-01-20 Weight 214.3 lbs 2018-01-20 Temperature 98.4 degrees Fahrenheit 2018-01-20 Heart Rate 108 bpm 2018-01-20 Respiratory Rate 24 2018-01-20 BMI 29.06 kg/m2 2018-01-20 Blood pressure systolic 165 mmHg 2018-01-20 Blood pressure diastolic 79 mmHg 2018-01-20 MEDICATIONS Medication Instructions Dosage Frequency Start Date End Date Duration Status Metformin HCl 500 mg Orally twice a day 2 tablets with a meal 12h Active Topiramate 25 MG Orally Twice a day 1 tablet 12h Active Ibuprofen 400 MG Orally Three times a day 1 tablet with food or milk as needed 8h Active TB Syringe 1 ML - Active Clonazepam 1 MG Orally 3 times a day r/t ocd disorder 1 tablet Active Allopurinol 300 MG Orally Once a day 1 tablet 24h Active Bactrim DS 800-160 MG Orally Twice a day 1 tablet 12h Dec, 9 Jan, 2018 10 day(s) Active Bethanechol Chloride 25 MG Orally 4 times a day 1 tablet after meals 6h Active Colace 100 mg Orally twice a day 1 capsule as needed 12h Active Verapamil HCl ER 180 MG Orally twice a day 1 tablet 12h Active Melatonin 3 MG Orally at bedtime for insomnia 1 tablet at bedtime as needed with food Active Depakote Sprinkles 125 MG Orally QHS 1 capsule 30 days Active Lactulose 20 GM/30ML Orally twice a day r/t constipation 15 ml Active Belsomra 10 mg Orally Once a day 1 tablet at bedtime as needed 24h Dec, 30 days Active Effexor XR 150 MG Orally Once a day 1 capsule with food 24h [address] Nasal [place] 0.65 % Nasally every 8 hrs 2 sprays in each nostril as needed 8h Active Milk of Magnesia 1200 MG/15ML Orally 12 hours as needed for constipation 30 ml as needed Active Glimepiride 2 MG Orally Once a day 2.5 tablet with breakfast or the first main meal of the day 24h Active Tamsulosin HCl 0.4 MG Orally Once a day in the evening 2 capsule Active Seroquel 100 mg Orally QHS 1/2 tab am and 1 tab hs 30 day(s) Active Timoptic Ocudose 0.5 % Ophthalmic every 12 hours 1 drop into both eyes 12h Active Latanoprost 0.005 % Ophthalmic Once a day 1 drop into both eyes in the evening 24h Active Topamax 25 MG Orally Twice a day 1 tablet 12h 30 day(s) Active MiraLax - Orally every 12 hours as needed for constipation 1 packet mixed with 8 ounces of fluid Active Vitamin D-3 1000 UNIT Orally Once a day 2 capsule 24h Active RESULTS No Results PROCEDURES Procedure Date Ordered Result Body Site URINALYSIS, AUTO, W/O SCOPE Jan 20, 2018 [facility] Jan [facility], 2018 [facility] VISIT ESTABLISHED PATIENT Jan 20, 2018 INSTRUCTIONS MEDICATIONS ADMINISTERED No Known Medications MEDICAL (GENERAL) HISTORY Type Description Date Medical History History of traumatic brain injury Subdural hematoma from falling out of bed 2012 Medical History Type 2 diabetes mellitus with unspecified complications Medical History FPC current use of insulin Medical History Weak urinary stream Medical History Glaucoma, unspecified glaucoma, unspecified laterality Medical History History of gout Medical History Obsessive-compulsive disorder, unspecified type Medical History Rad (reactive airway disease), mild intermittent, uncomplicated Medical History Anemia, unspecified type Medical History Gastroesophageal reflux disease without esophagitis Medical History Anxiety Medical History Hyperlipidemia, unspecified hyperlipidemia type Medical History Essential hypertension Medical History Herpes Medical History Persistent migraine aura without cerebral infarction and without status migrainosus, not intractable Surgical History jaw surgery 1975 Hospitalization History jaw surgery Hospitalization History dehydration Hospitalization History right hemothorax Hospitalization History right elbow Hospitalization History left ankle Hospitalization History SB Hospitalization History Lillie psych- Dorothy ?-11/2017
--- OUTSIDE RECORDS SUMMARY | 2018-07-02 11:52 | XMS REPORT ---
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 Active 04676500 Problem Chronic pain due to trauma G89.21 Active 919578850 Problem Cystitis N30.90 Active 01516835 Problem Hyperlipidemia, unspecified hyperlipidemia type E78.5 Active 78286518 Problem 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 Active 50570483 Problem History of traumatic brain injury Z87.820 Active 49001929745348 Problem Persistent migraine aura without cerebral infarction and without status migrainosus, not intractable G43.509 Active 636512550 Problem Recurrent major depressive disorder, in partial remission F33.41 Active 69286139 Problem Traumatic brain injury, without LOC, initial encounter S06.9X0A Active 828439093 Problem Benign prostatic hyperplasia with lower urinary tract symptoms, unspecified morphology N40.1 Active 607094756 Problem Intractable chronic migraine without aura and without status migrainosus G43.719 Active 813844627 Problem Glaucoma, unspecified glaucoma, unspecified laterality H40.9 Active 72092524 Problem Weak urinary stream R39.12 Active 21634647 Problem Rad (reactive airway disease), mild intermittent, uncomplicated J45.20 Active 969830744316 Problem Obsessive-compulsive disorder, unspecified type F42.9 Active 346789215 Problem Herpes B00.9 Active 73985704 Problem Gastroesophageal reflux disease without esophagitis K21.9 Active 040660272 Problem Anemia, unspecified type D64.9 Active 574260622 Problem Essential hypertension I10 Active 61228862 Problem Type 2 diabetes mellitus with unspecified complications E11.8 Active 16498077 Problem History of gout Z87.39 Active 027363058 Problem Anxiety F41.9 Active 15328756 ALLERGIES No Information ENCOUNTERS Encounter Location Date Diagnosis [facility] [address] [place] [address] Jan, [facility] [address] [place] [address] Dec, Anxiety F41.9 ; Traumatic brain injury, without LOC, initial encounter S06.9X0A ; Intractable chronic migraine without aura and without status migrainosus G43.719 ; Recurrent major depressive disorder, in partial remission F33.41 ; 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 and Cystitis N30.90 [facility] [address] [place] [address] Dec, Anxiety F41.9 ; Traumatic brain injury, without LOC, initial encounter S06.9X0A ; Intractable chronic migraine without aura and without status migrainosus G43.719 ; Recurrent major depressive disorder, in partial remission F33.41 and 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 [facility] [id number] [place] [address]81- 8948 Oct, [facility] [address] [facility] [place] [id number] Oct, Excessive anger R45.4 and Obsessive-compulsive disorder, unspecified type F42.9 [facility] [id number] [place] [address] 19872- 5937 Oct, Anxiety F41.9 ; Traumatic brain injury, without LOC, initial encounter S06.9X0A ; Intractable chronic migraine without aura and without status migrainosus G43.719 and Recurrent major depressive disorder, in partial remission F33.41 [facility] [id number] [place] [address] 37766- 0071 Oct, [facility] [address] [address] Oct, [facility] [id number] [place] [address] 35356- 8141 Oct, [facility] [address] [id number]- 6[address] September, Anxiety F41.9 ; Traumatic brain injury, without LOC, initial encounter S06.9X0A ; Intractable chronic migraine without aura and without status migrainosus G43.719 and Recurrent major depressive disorder, in partial remission F33.41 [facility] [address] [place] [id number] September, Weight gain R63.5 and Type 2 diabetes mellitus with unspecified complications E11.8 [facility] [address] [place] [address] 93378- 0385 September, [facility] [id number] [place] [address] 27688- 1109 Aug, [facility] [address] [place] [address] Aug, [facility] [id number] [place] [address] 99139- 3687 Aug, [facility] [id number] [place] [address] 52259- 8799 Jul, Intractable chronic migraine without aura and without status migrainosus G43.719 [facility] [address] [place] [address] 26722- 8882 Jul, Intractable chronic migraine without aura and without status migrainosus G43.719 [facility] [address] [place] [id number] Jul, History of traumatic brain injury Z87.820 ; Recurrent major depressive disorder, in partial remission F33.41 and Type 2 diabetes mellitus with unspecified complications E11.8 [facility] [place] [id number] [id number] Jul, [facility] [place] [id number] [place] [address] [id number] Jul, Intractable chronic migraine without aura and without status migrainosus G43.719 [facility] [id number] [address] Jun, Anxiety F41.9 ; Traumatic brain injury, without LOC, initial encounter S06.9X0A ; Intractable chronic migraine without aura and without status migrainosus G43.719 and Recurrent major depressive disorder, in partial remission F33.41 [facility] [place] [id number] [id number] Jun, [facility] [address] [address] Jun, [facility] [id number] [place] [id number] Jun, Intractable chronic migraine without aura and without status migrainosus G43.719 [facility] [id number] [place] [address] 19173- 1258 May, [facility] [address] [place] [id number] May, Recurrent major depressive disorder, in partial remission F33.41 ; Traumatic brain injury, without LOC, initial encounter S06.9X0A and Anxiety F41.9 [facility] [address] [place] [address] 16215- 1595 May, [facility] [place] [id number] [place] [id number] May, [facility] [address] [place] [address] 44523- 4768 May, Intractable chronic migraine without aura and without status migrainosus G43.719 [facility] [address] [place] [address] 80790- 3174 Apr, Anxiety F41.9 ; Traumatic brain injury, without LOC, initial encounter S06.9X0A ; Intractable chronic migraine without aura and without status migrainosus G43.719 and Recurrent major depressive disorder, in partial remission F33.41 [facility] [address] [id number] [address] Apr, [facility] [place] [id number] [place] [address] [id number] Apr, Intractable chronic migraine without aura and without status migrainosus G43.719 [facility] [address] [id number], [place] [address] 2546 Apr, [facility] [address], [place] [address] Apr, [facility] [place] [address] [id number] [id number] Mar, [facility] [address] [address] Mar, [facility] [place] [address] [id number] [id number] Mar, [facility] [address] [address] Mar, Intractable chronic migraine without aura and without status migrainosus G43.719 [facility] [address] [place] [id number] Mar, Encounter for examination for admission to penitentiary Z02.2 ; History of traumatic brain injury Z87.820 ; Recurrent major depressive disorder, in partial remission F33.41 ; Anxiety F41.9 ; Obsessive-compulsive disorder, unspecified type F42.9 ; Essential hypertension I10 and Type 2 diabetes mellitus with unspecified complications E11.8 [facility] [place] [id number] [id number] Feb, [facility] [address] [id number] [address] Feb, Obsessive-compulsive disorder, unspecified type F42.9 ; Anxiety F41.9 and Recurrent major depressive disorder, in partial remission F33.41 [facility] [address] [id number] [address] Jan, Traumatic brain injury, without LOC, initial encounter S06.9X0A ; Intractable chronic migraine without aura and without status migrainosus G43.719 ; Anxiety F41.9 and Recurrent major depressive disorder, in partial remission F33.41 [facility] [address] [id number] [address] 20 Jan, 2017 Intractable chronic migraine without aura and without status migrainosus G43.719 [facility] [address], [place] [address] 86[address] 19 Jan, 2017 History of traumatic brain injury Z87.820 ; Anxiety F41.9 and Recurrent major depressive disorder, in partial remission F33.41 [facility] [address], [place] [address] 97[address] 13 Jan, 2017 [facility] [address] [place] [address] Jan, History of traumatic brain injury Z87.820 and Obsessive-compulsive disorder, unspecified type F42.9 [address], [place] [address] 8[address] 06 Jan, 2017 Traumatic brain injury, without LOC, initial encounter S06.9X0A ; Intractable chronic migraine without aura and without status migrainosus G43.719 ; Anxiety F41.9 and Recurrent major depressive disorder, in partial remission F33.41 [address] [place] [address] 86782- 8652 05 Jan, 2017 History of traumatic brain injury Z87.820 ; Obsessive- compulsive disorder, unspecified type F42.9 ; Anxiety F41.9 and Recurrent major depressive disorder, in partial remission F33.41 [facility] [place] [id number], [place] [id number] Dec, [facility] [place] [id number] [place] [address] [id number] Dec, Intractable chronic migraine without aura and without status migrainosus G43.719 [facility] [address] [id number] Dec, Type 2 diabetes mellitus with unspecified complications E11.8 and Essential hypertension [address] [place] [address] 32112- 5869 Dec, Traumatic brain injury, without LOC, initial encounter S06.9X0A [facility] [id number], [place] [address] 0844 16 Dec, 2016 Traumatic brain injury, without LOC, initial encounter S06.9X0A ; Intractable chronic migraine without aura and without status migrainosus G43.719 ; Anxiety F41.9 and Recurrent major depressive disorder, in partial remission F33.41 [facility] [address] [place] [address] 40211- 4299 15 Dec, 2016 [facility] [address] [place] [address] 96869- 4711 Dec, History of traumatic brain injury Z87.820 ; Obsessive- compulsive disorder, unspecified type F42.9 ; Anxiety F41.9 and Recurrent major depressive disorder, in partial remission F33.41 [address] [place] [address] 75701- 1182 09 Dec, 2016 Traumatic brain injury, without LOC, initial encounter S06.9X0A [facility] [address] [place] [address] 26916- 6888 03 Dec, 2016 Anxiety F41.9 and Recurrent major depressive disorder, in partial remission F33.41 [facility] [address], [place] [address]- 4710 02 Dec, 2016 Traumatic brain injury, without LOC, initial encounter S06.9X0A ; Intractable chronic migraine without aura and without status migrainosus G43.719 ; Anxiety F41.9 and Recurrent major depressive disorder, in partial remission F33.41 [facility] [address], [place] [address] 5[address] Dec, [facility] [place] [id number] [place] [address] [id number] Nov, Intractable chronic migraine without aura and without status migrainosus G43.719 [facility] [address] [address] Nov, Obsessive-compulsive disorder, unspecified type F42.9 ; Anxiety F41.9 and Intractable chronic migraine without aura and without status migrainosus G43.719 [facility] [id number], [place] [address]- 6216 Nov, Traumatic brain injury, without LOC, initial encounter S06.9X0A ; Intractable chronic migraine without aura and without status migrainosus G43.719 ; Anxiety F41.9 and Recurrent major depressive disorder, in partial remission F33.41 [facility] [place] [address] [id number] [address] Nov, [facility] [id number] [place] [address] 59404- 5442 Nov, Anxiety F41.9 and Recurrent major depressive disorder, in partial remission F33.41 [facility] [address], [place] [address]- 2326 Nov, [facility] [place] [id number] [place] [address] [id number] Nov, [facility] [id number], [place] [address]- 8898 Oct, [facility] [id number] [place] [address] [id number]- 6946 Oct, Anxiety F41.9 and Recurrent major depressive disorder, in partial remission F33.41 [facility] [id number], [place] [address]- 3216 Oct, [facility] [id number], [place] [address] 2546 September, Anxiety F41.9 and Recurrent major depressive disorder, in partial remission F33.41 [facility] [id number] [address]16 September, Traumatic brain injury, without LOC, initial encounter S06.9X0A ; Intractable chronic migraine without aura and without status migrainosus G43.719 ; Anxiety F41.9 and Recurrent major depressive disorder, in partial remission F33.41 [facility] [id number], [place] [address]- 0849 September, [facility] [address] [address] 9870 September, Anxiety F41.9 [facility] [address] [id number], [place] [address]- 5785 September, [facility] [place] [id number] [place] [address] [id number] September, Type 2 diabetes mellitus with unspecified complications E11.8 [facility] [place] [id number] [place] [address] [id number] September, Type 2 diabetes mellitus with unspecified complications E11.8 [facility] [address] [place] [id number] September, Essential hypertension I10 and History of traumatic brain injury Z87.820 [address] [place] [address] 44428- 6659 Aug, [facility] [address] [id number] Aug, Type 2 diabetes mellitus with unspecified complications E11.8 and Benign prostatic hyperplasia with lower urinary tract symptoms, unspecified morphology N40.1 [facility] [place] [id number] [id number] Aug, [facility] [address], [place] [address]- 8475 Aug, [facility] [id number], [place] [address]- 7796 Jul, Traumatic brain injury, without LOC, initial encounter S06.9X0A ; Intractable chronic migraine without aura and without status migrainosus G43.719 ; Anxiety F41.9 and Recurrent major depressive disorder, in partial remission F33.41 [facility] [id number], [place] [address]- 9134 Jul, [facility] [address], [place] [address]- 3686 Jul, [facility] [address] [id number] [id number] Jun, [facility] [address], [place] [address]- 2477 Jun, [facility] [address] [place] [address] 28123- 1809 Jun, [facility] [address] [place] [address] [id number] Jun, Encounter to establish care Z76.89 [facility] [address] [place] [address] 07845- 4590 Jun, [facility] [id number] [place] [address] 27114- 5553 Jun, [facility] [address] [place] [address] 73056- 0729 Jun, [facility] [address], [place] [address]- 4324 Jun, [facility] [address] [place] [address] May, [facility] [address] [place] [address] Dec, [facility]01.[facility] [address] [place] [address] September, [facility] Z01.20 [facility] [place] [address] [place] [address] Dec, Dental examination V72.2 [facility] [address], [place] [address]- 2692 Aug, [facility] [address], [place] [address]- 7802 Aug, [facility] [address] [place] [address] 35372- 1896 Apr, [facility] [address] [facility] [id number] [address]- 8736 Nov, [facility] [id number], [place] [address]- 8476 Nov, [facility] [id number], [place] [address]- 4658 Nov, [facility] [id number], [place] [address]- 0376 Nov, [facility] [address] [facility] [id number], [place] [address]- 7121 Oct, [facility] [id number], [place] [address]- 3456 May, [facility] [id number], [place] [address]- 4006 May, IMMUNIZATIONS No Known Immunizations SOCIAL HISTORY Never Assessed REASON FOR VISIT Med Changes made through PCP office PLAN OF CARE VITAL SIGNS MEDICATIONS Unknown Medications RESULTS No Results PROCEDURES No Known procedures INSTRUCTIONS MEDICATIONS ADMINISTERED No Known Medications MEDICAL (GENERAL) HISTORY Type Description Date Medical History History of traumatic brain injury Subdural hematoma from falling out of bed 2012 Medical History Type 2 diabetes mellitus with unspecified complications 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
--- OUTSIDE RECORDS SUMMARY | 2018-07-02 11:52 | XMS REPORT ---
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 Active 76004516 Problem History of traumatic brain injury Z87.820 Active 02847767516419 Problem Persistent migraine aura without cerebral infarction and without status migrainosus, not intractable G43.509 Active 452583013 Problem Recurrent major depressive disorder, in partial remission F33.41 Active 64820274 Problem Traumatic brain injury, without LOC, initial encounter S06.9X0A Active 861775010 Problem Benign prostatic hyperplasia with lower urinary tract symptoms, unspecified morphology N40.1 Active 239324529 Problem Intractable chronic migraine without aura and without status migrainosus G43.719 Active 463652410 Problem Glaucoma, unspecified glaucoma, unspecified laterality H40.9 Active 13333070 Problem Weak urinary stream R39.12 Active 80526355 Problem Rad (reactive airway disease), mild intermittent, uncomplicated J45.20 Active 581103842572 Problem Obsessive-compulsive disorder, unspecified type F42.9 Active 753731891 Problem Herpes B00.9 Active 03848240 Problem Gastroesophageal reflux disease without esophagitis K21.9 Active 981978775 Problem Anemia, unspecified type D64.9 Active 296226189 Problem Essential hypertension I10 Active 48082068 Problem Type 2 diabetes mellitus with unspecified complications E11.8 Active 88009259 Problem History of gout Z87.39 Active 623255365 Problem Anxiety F41.9 Active 18249517 ALLERGIES Substance Reaction Event Type Date Status Prozac Unknown Drug Allergy Mar, Active Penicillin V Potassium Unknown Drug Allergy Mar, Active Abilify Unknown Drug Allergy Mar, Active ENCOUNTERS Encounter Location Date Diagnosis [facility] [address] [place] [address] May, [facility] [address] [place] [address] Mar, Traumatic brain injury, without LOC, initial encounter S06.9X0A ; Anxiety F41.9 ; Intractable chronic migraine without aura and without status migrainosus G43.719 ; Recurrent major depressive disorder, in partial remission F33.41 and 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 [facility] [address] [place] [address] Jan, [facility] [address] [place] [address] Dec, Anxiety F41.9 ; Traumatic brain injury, without LOC, initial encounter S06.9X0A ; Intractable chronic migraine without aura and without status migrainosus G43.719 ; Recurrent major depressive disorder, in partial remission F33.41 ; 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 and Cystitis N30.[address] [place] [address] Dec, Anxiety F41.9 ; Traumatic brain injury, without LOC, initial encounter S06.9X0A ; Intractable chronic migraine without aura and without status migrainosus G43.719 ; Recurrent major depressive disorder, in partial remission F33.41 and 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 [facility] [address] [place] [address] [id number] [address] Oct, [facility] [address] [place] [id number] Oct, Excessive anger R45.4 and Obsessive-compulsive disorder, unspecified type F42.9 [facility] [address] [facility] [id number] [address] Oct, Anxiety F41.9 ; Traumatic brain injury, without LOC, initial encounter S06.9X0A ; Intractable chronic migraine without aura and without status migrainosus G43.719 and Recurrent major depressive disorder, in partial remission F33.41 [facility] [id number] [address] 12 Oct, 2017 [facility] [id number] [address] 05 Oct, 2017 [id number] [place] [address] Oct, [address] [id number] [place] [address] September, Anxiety F41.9 ; Traumatic brain injury, without LOC, initial encounter S06.9X0A ; Intractable chronic migraine without aura and without status migrainosus G43.719 and Recurrent major depressive disorder, in partial remission F33.41 [facility] [address] [place] [id number] September, Weight gain R63.5 and Type 2 diabetes mellitus with unspecified complications E11.8 [address] [id number] [place] [address] September, [address] [id number] [place] [address] Aug, [facility] [address] [place] [address] Aug, [address] [address] [address] Aug, [facility] [address] [place] [address] Jul, Intractable chronic migraine without aura and without status migrainosus G43.719 [facility] [address] [address] Jul, Intractable chronic migraine without aura and without status migrainosus G43.719 [facility] [address] [place] [id number] Jul, History of traumatic brain injury Z87.820 ; Recurrent major depressive disorder, in partial remission F33.41 and Type 2 diabetes mellitus with unspecified complications E11.8 [facility] [id number] [place] [id number] Jul, [facility] [id number] [place] [address] Jul, Intractable chronic migraine without aura and without status migrainosus G43.719 [facility] [id number] [address] Jun, Anxiety F41.9 ; Traumatic brain injury, without LOC, initial encounter S06.9X0A ; Intractable chronic migraine without aura and without status migrainosus G43.719 and Recurrent major depressive disorder, in partial remission F33.41 [facility] [id number] [place] [id number] 13 Jun, 2017 [facility] [address] [address] Jun, [facility] [id number] [place] [address] Jun, Intractable chronic migraine without aura and without status migrainosus G43.719 [facility] [id number] [address] May, [facility] [address] [facility] [place] [id number] May, Recurrent major depressive disorder, in partial remission F33.41 ; Traumatic brain injury, without LOC, initial encounter S06.9X0A and Anxiety F41.9 [facility] [address] [address] May, [facility] [id number] [place] [id number] May, [facility] [address] [address] May, Intractable chronic migraine without aura and without status migrainosus G43.719 [facility] [id number] [address] Apr, Anxiety F41.9 ; Traumatic brain injury, without LOC, initial encounter S06.9X0A ; Intractable chronic migraine without aura and without status migrainosus G43.719 and Recurrent major depressive disorder, in partial remission F33.41 [facility] [address] [address] Apr, [facility] [id number] [place] [id number] Apr, Intractable chronic migraine without aura and without status migrainosus G43.719 [facility] [address] [address] Apr, [facility] [id number] [place] [address] Apr, [facility] [id number] [place] [id number] Mar, [facility] [address] [place] [address] 7747 Mar, [facility] [id number] [place] [id number] Mar, [facility] [address] [address] Mar, Intractable chronic migraine without aura and without status migrainosus G43.719 [facility] [address] [place] [id number] Mar, Encounter for examination for admission to detention Z02.2 ; History of traumatic brain injury Z87.820 ; Recurrent major depressive disorder, in partial remission F33.41 ; Anxiety F41.9 ; Obsessive-compulsive disorder, unspecified type F42.9 ; Essential hypertension I10 and Type 2 diabetes mellitus with unspecified complications E11.8 [facility] [id number] [place] [id number] Feb, [facility] [address] [address] Feb, Obsessive-compulsive disorder, unspecified type F42.9 ; Anxiety F41.9 and Recurrent major depressive disorder, in partial remission F33.41 [facility] [address] [address] 27 Jan, 2017 Traumatic brain injury, without LOC, initial encounter S06.9X0A ; Intractable chronic migraine without aura and without status migrainosus G43.719 ; Anxiety F41.9 and Recurrent major depressive disorder, in partial remission F33.41 [address] [id number] [place] [address] 20 Jan, 2017 Intractable chronic migraine without aura and without status migrainosus G43.719 [place] [address] [place] [address] 46190- 2727 19 Jan, 2017 History of traumatic brain injury Z87.820 ; Anxiety F41.9 and Recurrent major depressive disorder, in partial remission F33.41 [facility] [address] [place] [address] 35277- 5989 13 Jan, [address] [id number] Jan, 2017 History of traumatic brain injury Z87.820 and Obsessive-compulsive disorder, unspecified type F42.9 [facility] [address] [place] [address] 86216- 3[address] 06 Jan, 2017 Traumatic brain injury, without LOC, initial encounter S06.9X0A ; Intractable chronic migraine without aura and without status migrainosus G43.719 ; Anxiety F41.9 and Recurrent major depressive disorder, in partial remission F33.41 [facility] [address] [place] [address] 31534- 0650 05 Jan, 2017 History of traumatic brain injury Z87.820 ; Obsessive- compulsive disorder, unspecified type F42.9 ; Anxiety F41.9 and Recurrent major depressive disorder, in partial remission F33.41 [facility] [id number] [place] [id number] Dec, [facility] [id number] [place] [id number] Dec, Intractable chronic migraine without aura and without status migrainosus G43.719 [facility] [address] [place] [id number] Dec, Type 2 diabetes mellitus with unspecified complications E11.8 and Essential hypertension I10 [facility] [address] [address] 18 Dec, 2016 Traumatic brain injury, without LOC, initial encounter S06.9X0A [facility] [address] [place] [address] 29937- 0880 16 Dec, 2016 Traumatic brain injury, without LOC, initial encounter S06.9X0A ; Intractable chronic migraine without aura and without status migrainosus G43.719 ; Anxiety F41.9 and Recurrent major depressive disorder, in partial remission F33.41 [facility] [id number] [address] Dec, [facility] [id number] [place] [address] 38139[address] 34[address] Dec, History of traumatic brain injury Z87.820 ; Obsessive- compulsive disorder, unspecified type F42.9 ; Anxiety F41.9 and Recurrent major depressive disorder, in partial remission F33.41 [facility] [id number] [address] 09 Dec, 2016 Traumatic brain injury, without LOC, initial encounter S06.9X0A [facility] [id number] [place] [address] 34457- 4130 03 Dec, 2016 Anxiety F41.9 and Recurrent major depressive disorder, in partial remission F33.41 [facility] [id number] [address]- 132[address] 02 Dec, 2016 Traumatic brain injury, without LOC, initial encounter S06.9X0A ; Intractable chronic migraine without aura and without status migrainosus G43.719 ; Anxiety F41.9 and Recurrent major depressive disorder, in partial remission F33.41 [facility] [address] [facility] [id number] [place] [address] Dec, [facility] [address] [id number] [id number] Nov, Intractable chronic migraine without aura and without status migrainosus G43.719 [facility] [address] [place] [id number] Nov, Obsessive-compulsive disorder, unspecified type F42.9 ; Anxiety F41.9 and Intractable chronic migraine without aura and without status migrainosus G43.719 [facility] [id number] [address]69 Nov, Traumatic brain injury, without LOC, initial encounter S06.9X0A ; Intractable chronic migraine without aura and without status migrainosus G43.719 ; Anxiety F41.9 and Recurrent major depressive disorder, in partial remission F33.41 [facility] [address] [id number] [id number] Nov, [facility] [address] [facility] [id number] [place] [address] Nov, Anxiety F41.9 and Recurrent major depressive disorder, in partial remission F33.41 [facility] [address] [facility] [id number] [place] [address] Nov, [facility] [address] [place] [id number] [place] [id number] Nov, [facility] [id number] [address] 6[address] Oct, [facility] [id number] [address] Oct, Anxiety F41.9 and Recurrent major depressive disorder, in partial remission F33.41 [facility] [address]65[address] [address] 8[address] Oct, [facility] [address] [address] September, Anxiety F41.9 and Recurrent major depressive disorder, in partial remission F33.41 [facility] [address] [address] September, Traumatic brain injury, without LOC, initial encounter S06.9X0A ; Intractable chronic migraine without aura and without status migrainosus G43.719 ; Anxiety F41.9 and Recurrent major depressive disorder, in partial remission F33.41 [facility] [address] [address]- 14[address] September, [facility] [id number] [place] [address] 39421- 4272 September, Anxiety F41.9 [facility] [address] [place] [address] 67093- 6458 September, [facility] [id number] [place] [id number] September, Type 2 diabetes mellitus with unspecified complications E11.8 [facility] [id number] [place] [address] September, Type 2 diabetes mellitus with unspecified complications E11.8 [facility] [address] [place] [id number] September, Essential hypertension I10 and History of traumatic brain injury Z87.820 [facility] [id number] [address] Aug, [facility] [address] [place] [id number] Aug, Type 2 diabetes mellitus with unspecified complications E11.8 and Benign prostatic hyperplasia with lower urinary tract symptoms, unspecified morphology N40.1 [facility] [id number] [place] [id number] Aug, [facility] [address] [address] Aug, [facility] [address] [place] [address] 74819- 7451 Jul, Traumatic brain injury, without LOC, initial encounter S06.9X0A ; Intractable chronic migraine without aura and without status migrainosus G43.719 ; Anxiety F41.9 and Recurrent major depressive disorder, in partial remission F33.41 [facility] [address] [place] [address] 30888- 2144 Jul, [facility] [id number] [place] [address] 10207- 3268 Jul, [facility] [id number] [place] [address] [id number] Jun, [facility] [id number] [place] [address] 89255- 9458 Jun, [facility] [id number] [place] [address] 06540- 1040 Jun, [facility] and [address] [id number] Jun, Encounter to establish care Z76.89 [facility] [address] [place] [address] 89865- 9033 Jun, [facility] [address] [place] [address] 06776- 7766 Jun, [facility] [address] [address]- 0824 Jun, [facility] [address] [place] [address] 74353- 8354 Jun, [facility] [address] [place] [address] May, Dental examination Z01.20 [facility] [address] [place] [address] Dec, Dental examination Z01.20 [facility] [address] [place] [address] September, [facility]01.20 [facility] [address] [place] [address] Dec, Dental examination V72.2 [facility] [address] [address]- [address] 14 Aug, 2014 [facility] [address] [address] 9[address] Aug, [facility] [id number] [address] Apr, [facility] [address] [address] 29[address] Nov, [facility] [address] [address] 8491 Nov, [facility] [address] [address]- 8[address] Nov, [facility] [address] [address]- 365[address] Nov, [facility] [id number] [address] 4201 Oct, [facility] [address] [address] May, [facility] [id number] [address] 3[address] May, IMMUNIZATIONS No Known Immunizations SOCIAL HISTORY Never Assessed REASON FOR VISIT f/u Meds are doing alright. Yulissa Wyatt RN PLAN OF CARE Activity Details Follow Up 2 Months Reason: VITAL SIGNS Height 72.0 in 2018-03-24 Weight 218 lbs 2018-03-24 Temperature 97.2 degrees Fahrenheit 2018-03-24 Heart Rate 90 bpm 2018-03-24 Respiratory Rate 24 2018-03-24 BMI 29.56 kg/m2 2018-03-24 Blood pressure systolic 109 mmHg 2018-03-24 Blood pressure diastolic 40 mmHg 2018-03-24 MEDICATIONS Medication Instructions Dosage Frequency Start Date End Date Duration Status Bethanechol Chloride 25 MG Orally 4 times a day 1 tablet after meals 6h Active Milk of Magnesia 1200 MG/15ML Orally 12 hours as needed for constipation 30 ml as needed Active Verapamil HCl ER 180 MG Orally twice a day 1 tablet 12h Active Ibuprofen 400 MG Orally Three times a day 1 tablet with food or milk as needed 8h Active Seroquel 100 mg Orally QHS 1/2 tab am and 1 tab hs 30 day(s) Active Colace 100 mg Orally twice a day 1 capsule as needed 12h Active Clonazepam 1 MG Orally 3 times a day 1 tablet 8h Mar, 30 days Active MiraLax - Orally Once a day in am 1 packet mixed with 8 ounces of fluid Active Allopurinol 300 MG Orally Once a day 1 tablet 24h Active Lactulose 20 GM/30ML Orally twice a day r/t constipation 15 ml Active Clonazepam 1 MG Orally 3 times a day r/t ocd disorder 1 tablet Active Timoptic Ocudose 0.5 % Ophthalmic every 12 hours 1 drop into both eyes 12h Active MiraLax - Orally every 12 hours as needed for constipation 1 packet mixed with 8 ounces of fluid Active Poinsett Nasal [place] 0.65 % Nasally every 8 hrs 2 sprays in each nostril as needed 8h Active Glimepiride 2 MG Orally Once a day 2.5 tablet with breakfast or the first main meal of the day 24h Active Latanoprost 0.005 % Ophthalmic Once a day 1 drop into both eyes in the evening 24h Active NovoLog Flexpen 100 UNIT/ML Subcutaneous if 150-200=4 uniys, 201-250=5 units, 251-999=6 units as directed Active Effexor XR 150 MG Orally Once a day 1 capsule with food 24h 30 days Active Tamsulosin HCl 0.4 MG Orally Once a day in the evening 2 capsule Active Metformin HCl 500 mg Orally twice a day 2 tablets with a meal 12h Active Topamax 25 MG Orally Twice a day 1 tablet 12h 30 day(s) Active Depakote Sprinkles 125 MG Orally QHS 1 capsule 30 days Active Levemir Flexpen 10 units subcutaneously at bedtime Active Melatonin 3 MG Orally at bedtime for insomnia 1 tablet at bedtime as needed with food Active Vitamin D-3 1000 UNIT Orally Once a day 2 capsule 24h Not-Taking TB Syringe 1 ML - Active Topiramate 25 MG Orally Twice a day 1 tablet 12h Active RESULTS No Results PROCEDURES Procedure Date Ordered Result Body Site PENDING SALE TO [facility] VISIT ESTABLISHED PATIENT Mar 24, 2018 INSTRUCTIONS MEDICATIONS ADMINISTERED No Known Medications MEDICAL (GENERAL) HISTORY Type Description Date Medical History History of traumatic brain injury Subdural hematoma from falling out of bed 2012 Medical History Type 2 diabetes mellitus with unspecified complications 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
--- OUTSIDE RECORDS SUMMARY | 2018-07-02 11:53 | XMS REPORT ---
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 Active 07638682 Problem Chronic pain due to trauma G89.21 Active 440232207 Problem Cystitis N30.90 Active 59183585 Problem Hyperlipidemia, unspecified hyperlipidemia type E78.5 Active 27660174 Problem 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 Active 84742480 Problem History of traumatic brain injury Z87.820 Active 64160899023672 Problem Persistent migraine aura without cerebral infarction and without status migrainosus, not intractable G43.509 Active 913639511 Problem Recurrent major depressive disorder, in partial remission F33.41 Active 82039050 Problem Traumatic brain injury, without LOC, initial encounter S06.9X0A Active 656980037 Problem Benign prostatic hyperplasia with lower urinary tract symptoms, unspecified morphology N40.1 Active 908523528 Problem Intractable chronic migraine without aura and without status migrainosus G43.719 Active 172694342 Problem Glaucoma, unspecified glaucoma, unspecified laterality H40.9 Active 00027411 Problem Weak urinary stream R39.12 Active 64018785 Problem Rad (reactive airway disease), mild intermittent, uncomplicated J45.20 Active 155289933806 Problem Obsessive-compulsive disorder, unspecified type F42.9 Active 099667480 Problem Herpes B00.9 Active 84858222 Problem Gastroesophageal reflux disease without esophagitis K21.9 Active 343575773 Problem Anemia, unspecified type D64.9 Active 763100080 Problem Essential hypertension I10 Active 78870698 Problem Type 2 diabetes mellitus with unspecified complications E11.8 Active 61720342 Problem History of gout Z87.39 Active 580518672 Problem Anxiety F41.9 Active 35408282 ALLERGIES Substance Reaction Event Type Date Status Prozac Unknown Drug Allergy Dec, Active Penicillin V Potassium Unknown Drug Allergy Dec, Active Abilify Unknown Drug Allergy Dec, Active ENCOUNTERS Encounter Location Date Diagnosis [facility] [address] [place] [address] 09 Feb, 2018 [facility] [address] [place] [address] Jan, [facility] [address] [place] [address] Dec, Anxiety F41.9 ; Traumatic brain injury, without LOC, initial encounter S06.9X0A ; Intractable chronic migraine without aura and without status migrainosus G43.719 ; Recurrent major depressive disorder, in partial remission F33.41 ; 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 and Cystitis N30.90 [facility] [address] [place] [address] Dec, Anxiety F41.9 ; Traumatic brain injury, without LOC, initial encounter S06.9X0A ; Intractable chronic migraine without aura and without status migrainosus G43.719 ; Recurrent major depressive disorder, in partial remission F33.41 and 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 [facility] [address] [place] [address] Oct, [facility] [address] [facility] [place] [id number] Oct, Excessive anger R45.4 and Obsessive-compulsive disorder, unspecified type F42.9 [facility] [place] [address], [place] [address] Oct, Anxiety F41.9 ; Traumatic brain injury, without LOC, initial encounter S06.9X0A ; Intractable chronic migraine without aura and without status migrainosus G43.719 and Recurrent major depressive disorder, in partial remission F33.41 [facility] [address], [place] [address] Oct, [facility] [place] [address] [place] [address] 4[address] Oct, [facility] [place] [address], [place] [address] Oct, [facility] [place] [address] [place] [address] September, Anxiety F41.9 ; Traumatic brain injury, without LOC, initial encounter S06.9X0A ; Intractable chronic migraine without aura and without status migrainosus G43.719 and Recurrent major depressive disorder, in partial remission F33.41 [facility] [address] [place] [id number] September, Weight gain R63.5 and Type 2 diabetes mellitus with unspecified complications E11.8 [facility] [place] [address] [place] [address] 2072 September, [facility] [place] [address] [place] [address] [id number] [place] [address] 7733 Aug, [facility] [address] [place] [address] Aug, [facility] [place] [id number] [place] [address] 5034 Aug, [facility] [place] [address] [place] [address]90- 4352 Jul, Intractable chronic migraine without aura and without status migrainosus G43.719 [facility] [place] [address], [place] [address] Jul, Intractable chronic migraine without aura and without status migrainosus G43.719 [facility] [address] [place] [id number] Jul, History of traumatic brain injury Z87.820 ; Recurrent major depressive disorder, in partial remission F33.41 and Type 2 diabetes mellitus with unspecified complications E11.8 [facility] [id number] [id number] 12 Jul, 2017 [facility] [address] [place] [id number] [place] [id number] Jul, Intractable chronic migraine without aura and without status migrainosus G43.719 [facility] [place] [id number], [place] [address] Jun, Anxiety F41.9 ; Traumatic brain injury, without LOC, initial encounter S06.9X0A ; Intractable chronic migraine without aura and without status migrainosus G43.719 and Recurrent major depressive disorder, in partial remission F33.41 [facility] [id number] [id number] Jun, [facility] [place] [address], [place] [address] Jun, [facility] [id number] [place] [id number] Jun, Intractable chronic migraine without aura and without status migrainosus G43.719 [facility] [place] [address], [place] [address] May, [facility] [address] [place] [id number] May, Recurrent major depressive disorder, in partial remission F33.41 ; Traumatic brain injury, without LOC, initial encounter S06.9X0A and Anxiety F41.9 [facility] [place] [id number], [place] [address] May, [facility] [id number] [id number] May, [facility] [place] [id number] [address] May, Intractable chronic migraine without aura and without status migrainosus G43.719 [facility] [place] [id number], [place] [address] Apr, Anxiety F41.9 ; Traumatic brain injury, without LOC, initial encounter S06.9X0A ; Intractable chronic migraine without aura and without status migrainosus G43.719 and Recurrent major depressive disorder, in partial remission F33.41 [facility] [place] [address], [place] [address] Apr, [facility] [id number] [place] [id number] Apr, Intractable chronic migraine without aura and without status migrainosus G43.719 [facility] [place] [address], [place] [address] Apr, [facility] [place] [id number] [place] [address] 998746- 6201 Apr, [facility] [address] [id number] [place] [id number] Mar, [facility] [place] [id number] [place] [address] [id number]- 3257 Mar, [facility] [address] [id number] [place] [address] [id number] Mar, [facility] [place] [address] [place] [address] 15562- 0454 Mar, Intractable chronic migraine without aura and without status migrainosus G43.719 [facility] [address] [place] [id number] Mar, Encounter for [facility] [place] Z02.2 ; History of traumatic brain injury Z87.820 ; Recurrent major depressive disorder, in partial remission F33.41 ; Anxiety F41.9 ; Obsessive-compulsive disorder, unspecified type F42.9 ; Essential hypertension I10 and Type 2 diabetes mellitus with unspecified complications E11.8 [facility] [id number] [id number] Feb, [facility] [place] [address] [place] [address] 84355- 5[address] Feb, Obsessive-compulsive disorder, unspecified type F42.9 ; Anxiety F41.9 and Recurrent major depressive disorder, in partial remission F33.41 [facility] [place] [address] [place] [address] 14520- 3901 27 Jan, 2017 Traumatic brain injury, without LOC, initial encounter S06.9X0A ; Intractable chronic migraine without aura and without status migrainosus G43.719 ; Anxiety F41.9 and Recurrent major depressive disorder, in partial remission F33.41 [facility] [place] [id number], [place] [address] 20 Jan, 2017 Intractable chronic migraine without aura and without status migrainosus G43.719 [facility] [place] [id number], [place] [address] 19 Jan, 2017 History of traumatic brain injury Z87.820 ; Anxiety F41.9 and Recurrent major depressive disorder, in partial remission F33.41 [facility] [place] [id number], [place] [address] 13 Jan, 2017 [facility] [address] [place] [id number] 07 Jan, 2017 History of traumatic brain injury Z87.820 and Obsessive-compulsive disorder, unspecified type F42.9 [facility] [place] [id number], [place] [address] 06 Jan, 2017 Traumatic brain injury, without LOC, initial encounter S06.9X0A ; Intractable chronic migraine without aura and without status migrainosus G43.719 ; Anxiety F41.9 and Recurrent major depressive disorder, in partial remission F33.41 [facility] [place] [id number], [place] [address] 05 Jan, 2017 History of traumatic brain injury Z87.820 ; Obsessive- compulsive disorder, unspecified type F42.9 ; Anxiety F41.9 and Recurrent major depressive disorder, in partial remission F33.41 [facility] [id number] [id number] Dec, [facility] [id number] [id number] Dec, Intractable chronic migraine without aura and without status migrainosus G43.719 [facility] [address] [place] [id number] 22 Dec, 2016 Type 2 diabetes mellitus with unspecified complications E11.8 and Essential hypertension I10 [facility] [place] [id number] [place] [address] 53206- 6723 18 Dec, 2016 Traumatic brain injury, without LOC, initial encounter S06.9X0A [facility] [place] [id number] [place] [address] 99399- 9527 16 Dec, 2016 Traumatic brain injury, without LOC, initial encounter S06.9X0A ; Intractable chronic migraine without aura and without status migrainosus G43.719 ; Anxiety F41.9 and Recurrent major depressive disorder, in partial remission F33.41 [facility] [place] [id number] [place] [address] 20074- 5129 15 Dec, 2016 [facility] [place] [id number] [place] [address] 24790- 0636 11 Dec, 2016 History of traumatic brain injury Z87.820 ; Obsessive- compulsive disorder, unspecified type F42.9 ; Anxiety F41.9 and Recurrent major depressive disorder, in partial remission F33.41 [facility] [place] [id number] [place] [address] 89835- 5245 09 Dec, 2016 Traumatic brain injury, without LOC, initial encounter S06.9X0A [facility] [place] [address] [place] [address] 10348- 8918 03 Dec, 2016 Anxiety F41.9 and Recurrent major depressive disorder, in partial remission F33.41 [facility] [place] [address] [place] [address] 64282- 0347 02 Dec, 2016 Traumatic brain injury, without LOC, initial encounter S06.9X0A ; Intractable chronic migraine without aura and without status migrainosus G43.719 ; Anxiety F41.9 and Recurrent major depressive disorder, in partial remission F33.41 [facility] [place] [address] [place] [address] 83523- 0854 Dec, [facility] [id number] [place] [address] [place] [id number] Nov, Intractable chronic migraine without aura and without status migrainosus G43.719 [facility] [address] [place] [id number] Nov, Obsessive-compulsive disorder, unspecified type F42.9 ; Anxiety F41.9 and Intractable chronic migraine without aura and without status migrainosus G43.719 [facility] [place] [id number], [place] [address]687 Nov, Traumatic brain injury, without LOC, initial encounter S06.9X0A ; Intractable chronic migraine without aura and without status migrainosus G43.719 ; Anxiety F41.9 and Recurrent major depressive disorder, in partial remission F33.41 [facility] [id number] [id number] Nov, [facility] [place] [address] [id number] [place] [address] 15975- 9999 Nov, Anxiety F41.9 and Recurrent major depressive disorder, in partial remission F33.41 [facility] [place] [id number], [place] [address] 6645 Nov, [facility] [id number] [place] [address] [id number] Nov, [facility] [place] [address], [place] [address]- 8544 Oct, [facility] [place] [address] [place] [address] 60065- 0040 Oct, Anxiety F41.9 and Recurrent major depressive disorder, in partial remission F33.41 [facility] [place] [address] [place] [address] 09975- 5668 Oct, [facility] [place] [address] [place] [address] [phone]- 6110 September, Anxiety F41.9 and Recurrent major depressive disorder, in partial remission F33.41 [facility] [place] [address] [place] [address] 94495- 0334 September, Traumatic brain injury, without LOC, initial encounter S06.9X0A ; Intractable chronic migraine without aura and without status migrainosus G43.719 ; Anxiety F41.9 and Recurrent major depressive disorder, in partial remission F33.41 [facility] [place] [address], [place] [address]- 7155 September, [facility] [place] [address] [place] [address] 91981- 3848 September, Anxiety F41.9 [place] [address] [place] [address] 01969- 5162 September, [facility] [facility] [address] [id number] [place] [address] [id number] September, Type 2 diabetes mellitus with unspecified complications E11.8 [place] [address] [address] [id number] [place] [address] [id number] September, Type 2 diabetes mellitus with unspecified complications E11.8 [facility] [address] [place] [address] [id number] September, Essential hypertension I10 and History of traumatic brain injury Z87.820 [place] [address] [place] [address] 81591- 5978 Aug, [facility] [address] [place] [address] [id number] Aug, Type 2 diabetes mellitus with unspecified complications E11.8 and Benign prostatic hyperplasia with lower urinary tract symptoms, unspecified morphology N40.1 [facility] [id number] [id number] Aug, [place] [address], [place] [address]- 3914 Aug, [place] [address] [address] 1469 Jul, Traumatic brain injury, without LOC, initial encounter S06.9X0A ; Intractable chronic migraine without aura and without status migrainosus G43.719 ; Anxiety F41.9 and Recurrent major depressive disorder, in partial remission F33.41 [facility] [place] [address], [place] [address]- 6194 Jul, [facility] [place] [id number] [place] [address] 63228- 5523 Jul, [facility] [id number] [place] [address] [id number] Jun, [facility] [place] [id number] [place] [address] 85339- 5076 Jun, [facility] [place] [id number] [place] [address] 57371- 1603 Jun, [facility] and [address] [phone] Jun, Encounter to establish care Z76.89 [facility] [place] [id number] [place] [address] 45708- 1657 Jun, [facility] [place] [address] [place] [address] 96764- 2999 Jun, [facility] [place] [id number] [place] [address] 70244- 1348 Jun, [facility] [place] [address] [place] [address] 74761- 4994 Jun, [facility] [address] [place] [address] May, [facility].20 [facility] [address] [place] [address] Dec, Dental examination Z01.20 [facility] [address] [place] [address] September, Dental examination Z01.20 [facility] [address] [place] [address] Dec, Dental examination V72.2 [facility] [place] [id number] [place] [address] 78130- 2546 Aug, [facility] [place] [address] [facility] [id number] [address]- 2546 Aug, [facility] [place] [id number], [place] [address]- 2546 Apr, [facility] [place] [id number], [place] [address]- 2546 Nov, [facility] [place] [id number], [place] [address]- 2546 Nov, [facility] [place] [id number], [place] [address]- 2546 Nov, [facility] [place] [id number], [place] [address]- 2546 Nov, [facility] [place] [id number], [place] [address]- 2546 Oct, [facility] [place] [id number], [place] [address]- 2546 May, [facility] [place] [address] [facility] [id number] [address]- 2546 May, IMMUNIZATIONS No Known Immunizations SOCIAL HISTORY Never Assessed REASON FOR VISIT BH f/usTATES, FOR WHAT HE IS GOING THROUGH HE IS DOING WELL, REGARDING HIS DEPRESSION. bUT HE IS NOT SLEEPING AT NIGHT. He lays in bed and his mind is racing. , Pt has an order for ambien and they have it on hold, in order to talk to you about this first. , Rastafari Hallucinations, concerned with, having turned into a Jehovah due to hallucination of his halo turning to water, and Jehovah woman, inciting him to degrade God, and Edgar. Recurrent theme. Yulissa Wyatt RN, Also, Plese note High Pulse-111, bp-159/88. ESC RN PLAN OF CARE Activity Details Follow Up 3 Weeks Reason: VITAL SIGNS Height 72.0 in 2018-01-06 Weight 216.3 lbs 2018-01-06 Temperature 97.9 degrees Fahrenheit 2018-01-06 Heart Rate 111 bpm 2018-01-06 Respiratory Rate 24 2018-01-06 BMI 29.33 kg/m2 2018-01-06 Blood pressure systolic 159 mmHg 2018-01-06 Blood pressure diastolic 88 mmHg 2018-01-06 MEDICATIONS Medication Instructions Dosage Frequency Start Date End Date Duration Status Frontier Nasal [place] 0.65 % Nasally every 8 hrs 2 sprays in each nostril as needed 8h Active Ibuprofen 400 MG Orally Three times a day 1 tablet with food or milk as needed 8h Active Timoptic Ocudose 0.5 % Ophthalmic every 12 hours 1 drop into both eyes 12h Active Milk of Magnesia 1200 MG/15ML Orally 12 hours as needed for constipation 30 ml as needed Active Colace 100 mg Orally twice a day 1 capsule as needed 12h Active Metformin HCl 500 mg Orally twice a day 2 tablets with a meal 12h Active TB Syringe 1 ML - Active Lactulose 20 GM/30ML Orally twice a day r/t constipation 15 ml Active Topamax 25 MG Orally Twice a day 1 tablet 12h 30 day(s) Active Bethanechol Chloride 25 MG Orally 4 times a day 1 tablet after meals 6h Active Effexor XR 150 MG Orally Once a day 1 capsule with food 24h 30 days Active Tamsulosin HCl 0.4 MG Orally Once a day in the evening 2 capsule Active Venlafaxine HCl ER 75 MG Orally Once a day 3 capsules with food 24h Active Topiramate 25 MG Orally Twice a day 1 tablet 12h Active Glimepiride 2 MG Orally Once a day 2.5 tablet with breakfast or the first main meal of the day 24h Active Vitamin D-3 1000 UNIT Orally Once a day 2 capsule 24h Active Melatonin 3 MG Orally at bedtime for insomnia 1 tablet at bedtime as needed with food Active MiraLax - Orally every 12 hours as needed for constipation 1 packet mixed with 8 ounces of fluid Active Seroquel 50 MG Orally Once a day 1 tablet 24h Dec, 30 day(s) Active Allopurinol 300 MG Orally Once a day 1 tablet 24h Active Latanoprost 0.005 % Ophthalmic Once a day 1 drop into both eyes in the evening 24h Active Clonazepam 1 MG Orally 3 times a day r/t ocd disorder 1 tablet Active Verapamil HCl ER 180 MG Orally twice a day 1 tablet 12h Active RESULTS No Results PROCEDURES Procedure Date Ordered Result Body Site [facility] VISIT ESTABLISHED PATIENT Jan 06, 2018 INSTRUCTIONS MEDICATIONS ADMINISTERED No Known Medications MEDICAL (GENERAL) HISTORY Type Description Date Medical History History of traumatic brain injury Subdural hematoma from falling out of bed 2012 Medical History Type 2 diabetes mellitus with unspecified complications Medical History retirement current use of insulin Medical 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 Hospitalization History [facility] Hospitalization History [facility]- [facility] ?-11/2017
--- OUTSIDE RECORDS SUMMARY | 2018-07-02 11:53 | XMS REPORT ---
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 Active 76790770 Problem History of traumatic brain injury Z87.820 Active 76095936957348 Problem Persistent migraine aura without cerebral infarction and without status migrainosus, not intractable G43.509 Active 846377060 Problem Recurrent major depressive disorder, in partial remission F33.41 Active 91231423 Problem Traumatic brain injury, without LOC, initial encounter S06.9X0A Active 106423511 Problem Benign prostatic hyperplasia with lower urinary tract symptoms, unspecified morphology N40.1 Active 003913122 Problem Intractable chronic migraine without aura and without status migrainosus G43.719 Active 986300046 Problem Glaucoma, unspecified glaucoma, unspecified laterality H40.9 Active 34389591 Problem Weak urinary stream R39.12 Active 75084749 Problem Rad (reactive airway disease), mild intermittent, uncomplicated J45.20 Active 980744090970 Problem Obsessive-compulsive disorder, unspecified type F42.9 Active 910324785 Problem Herpes B00.9 Active 42936303 Problem Gastroesophageal reflux disease without esophagitis K21.9 Active 620148075 Problem Anemia, unspecified type D64.9 Active 577774589 Problem Essential hypertension I10 Active 19035034 Problem Type 2 diabetes mellitus with unspecified complications E11.8 Active 86106127 Problem History of gout Z87.39 Active 606992828 Problem Anxiety F41.9 Active 07857492 ALLERGIES No Information ENCOUNTERS Encounter Location Date Diagnosis [facility] [address] [place] [address] Jan, [facility] [address] [place] [address] Dec, Anxiety F41.9 ; Traumatic brain injury, without LOC, initial encounter S06.9X0A ; Intractable chronic migraine without aura and without status migrainosus G43.719 ; Recurrent major depressive disorder, in partial remission F33.41 ; 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 and Cystitis N30.90 [facility] [address] [place] [address] 16 Dec, 2017 Anxiety F41.9 ; Traumatic brain injury, without LOC, initial encounter S06.9X0A ; Intractable chronic migraine without aura and without status migrainosus G43.719 ; Recurrent major depressive disorder, in partial remission F33.41 and 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 [facility] [id number] [place] [address]26[address] 9867 Oct, [facility] [address] [place] [id number] Oct, Excessive anger R45.4 and Obsessive-compulsive disorder, unspecified type F42.9 [facility] [facility] [id number] [place] [address] 47685- 7184 Oct, Anxiety F41.9 ; Traumatic brain injury, without LOC, initial encounter S06.9X0A ; Intractable chronic migraine without aura and without status migrainosus G43.719 and Recurrent major depressive disorder, in partial remission F33.41 [facility] [id number] [place] [address] 69391- 6535 Oct, [facility] [address] [address] Oct, [facility] [facility] [id number] [place] [address] 21642- 8300 Oct, [facility] [address] [address] September, Anxiety F41.9 ; Traumatic brain injury, without LOC, initial encounter S06.9X0A ; Intractable chronic migraine without aura and without status migrainosus G43.719 and Recurrent major depressive disorder, in partial remission F33.41 [facility] [address] [place] [id number] September, Weight gain R63.5 and Type 2 diabetes mellitus with unspecified complications E11.8 [facility] [id number] [place] [address] 84311- 6175 September, [facility] [id number] [place] [address] 57917- 3728 Aug, [facility] [address] [place] [address] Aug, [facility] [id number] [place] [address] 69974- 8246 Aug, [facility] [id number] [place] [address] 29703- 1625 Jul, Intractable chronic migraine without aura and without status migrainosus G43.719 [facility] [address] [place] [address] 24208- 3983 Jul, Intractable chronic migraine without aura and without status migrainosus G43.719 [facility] [address] [place] [id number] Jul, History of traumatic brain injury Z87.820 ; Recurrent major depressive disorder, in partial remission F33.41 and Type 2 diabetes mellitus with unspecified complications E11.8 [facility] [address] [id number] [id number] Jul, [facility] [id number] [place] [address] [id number] Jul, Intractable chronic migraine without aura and without status migrainosus G43.719 [facility] [id number] [address] Jun, Anxiety F41.9 ; Traumatic brain injury, without LOC, initial encounter S06.9X0A ; Intractable chronic migraine without aura and without status migrainosus G43.719 and Recurrent major depressive disorder, in partial remission F33.41 [facility] [place] [id number] [address] 13 Jun, 2017 [facility] [id number] [address] Jun, [facility] [id number] [place] [id number] Jun, Intractable chronic migraine without aura and without status migrainosus G43.719 [facility] [address] [place] [address] 07338- 6572 May, [facility] [address] [place] [id number] May, Recurrent major depressive disorder, in partial remission F33.41 ; Traumatic brain injury, without LOC, initial encounter S06.9X0A and Anxiety F41.9 [facility] [id number] [address] May, [facility] [id number] [place] [address] [id number] May, [facility] [id number] [place] [address] 36201- 5890 May, Intractable chronic migraine without aura and without status migrainosus G43.719 [facility] [id number] [address] Apr, Anxiety F41.9 ; Traumatic brain injury, without LOC, initial encounter S06.9X0A ; Intractable chronic migraine without aura and without status migrainosus G43.719 and Recurrent major depressive disorder, in partial remission F33.41 [facility] [id number] [address] Apr, [facility] [id number] [place] [address] [id number] Apr, Intractable chronic migraine without aura and without status migrainosus G43.719 [facility] [id number], [place] [address] 25[address] Apr, [facility] [id number] [address] 2546 Apr, [facility] [place] [id number] [id number] Mar, [facility] [id number] [address] Mar, [facility] [place] [id number] [id number] Mar, [facility] [address] [address] Mar, Intractable chronic migraine without aura and without status migrainosus G43.719 [facility] [address] [place] [id number] Mar, Encounter for examination for admission to care home Z02.2 ; History of traumatic brain injury Z87.820 ; Recurrent major depressive disorder, in partial remission F33.41 ; Anxiety F41.9 ; Obsessive-compulsive disorder, unspecified type F42.9 ; Essential hypertension I10 and Type 2 diabetes mellitus with unspecified complications E11.8 [facility] [place] [id number] [id number] Feb, [facility] [id number] [address] Feb, Obsessive-compulsive disorder, unspecified type F42.9 ; Anxiety F41.9 and Recurrent major depressive disorder, in partial remission F33.41 [facility] [id number] [address] Jan, Traumatic brain injury, without LOC, initial encounter S06.9X0A ; Intractable chronic migraine without aura and without status migrainosus G43.719 ; Anxiety F41.9 and Recurrent major depressive disorder, in partial remission F33.41 [facility] [id number], [place] [address] 20 Jan, 2017 Intractable chronic migraine without aura and without status migrainosus G43.719 [facility] [address] [place] [address] 34354- 0977 19 Jan, 2017 History of traumatic brain injury Z87.820 ; Anxiety F41.9 and Recurrent major depressive disorder, in partial remission F33.41 [facility] [address] [place] [address] 55235- 1740 13 Jan, 2017 [facility] [address] [place] [id number] 07 Jan, 2017 History of traumatic brain injury Z87.820 and Obsessive-compulsive disorder, unspecified type F42.9 [facility] [id number] [place] [address] 44089- 7611 06 Jan, 2017 Traumatic brain injury, without LOC, initial encounter S06.9X0A ; Intractable chronic migraine without aura and without status migrainosus G43.719 ; Anxiety F41.9 and Recurrent major depressive disorder, in partial remission F33.41 [place] [address] [place] [address] 77034- 3477 05 Jan, 2017 History of traumatic brain injury Z87.820 ; Obsessive- compulsive disorder, unspecified type F42.9 ; Anxiety F41.9 and Recurrent major depressive disorder, in partial remission F33.41 [facility] [place] [id number] [id number] Dec, [facility] [place] [id number] [place] [address] [id number] Dec, Intractable chronic migraine without aura and without status migrainosus G43.719 [facility] [address] [place] [id number] Dec, Type 2 diabetes mellitus with unspecified complications E11.8 and Essential hypertension I10 [facility] [facility] [address] [place] [address] 22997- 8730 Dec, Traumatic brain injury, without LOC, initial encounter S06.9X0A [facility] [address], [place] [address]- [address]12 16 Dec, 2016 Traumatic brain injury, without LOC, initial encounter S06.9X0A ; Intractable chronic migraine without aura and without status migrainosus G43.719 ; Anxiety F41.9 and Recurrent major depressive disorder, in partial remission F33.41 [facility] [address] [place] [address] 05011- 7116 15 Dec, 2016 [facility] [address] [place] [address] 99625- 0975 Dec, History of traumatic brain injury Z87.820 ; Obsessive- compulsive disorder, unspecified type F42.9 ; Anxiety F41.9 and Recurrent major depressive disorder, in partial remission F33.41 [facility] [address] [place] [address] 90899- 5558 09 Dec, 2016 Traumatic brain injury, without LOC, initial encounter S06.9X0A [facility] [address] [place] [address] 08153- 1210 03 Dec, 2016 Anxiety F41.9 and Recurrent major depressive disorder, in partial remission F33.41 [facility] [address], [place] [address]- 6554 02 Dec, 2016 Traumatic brain injury, without LOC, initial encounter S06.9X0A ; Intractable chronic migraine without aura and without status migrainosus G43.719 ; Anxiety F41.9 and Recurrent major depressive disorder, in partial remission F33.41 [facility] [address], [place] [address]- 35[address] Dec, [facility] [place] [id number] [place] [address] [id number] Nov, Intractable chronic migraine without aura and without status migrainosus G43.719 [facility] [address] [place] [id number] Nov, Obsessive-compulsive disorder, unspecified type F42.9 ; Anxiety F41.9 and Intractable chronic migraine without aura and without status migrainosus G43.719 [facility] [id number], [place] [address]- 0249 Nov, Traumatic brain injury, without LOC, initial encounter S06.9X0A ; Intractable chronic migraine without aura and without status migrainosus G43.719 ; Anxiety F41.9 and Recurrent major depressive disorder, in partial remission F33.41 [facility] [place] [id number] [place] [address] [id number] Nov, [facility] [id number] [place] [address] 69464- 2471 Nov, Anxiety F41.9 and Recurrent major depressive disorder, in partial remission F33.41 [facility] [address], [place] [address]- 0194 Nov, [facility] [place] [id number] [place] [address] [id number] Nov, [facility] [id number], [place] [address]- 6760 Oct, [facility] [id number] [place] [address] 52966- 1226 Oct, Anxiety F41.9 and Recurrent major depressive disorder, in partial remission F33.41 [facility] [address], [place] [address]- 3346 Oct, [facility] [id number], [place] [address] 2546 September, Anxiety F41.9 and Recurrent major depressive disorder, in partial remission F33.41 [facility] [id number] [address] September, Traumatic brain injury, without LOC, initial encounter S06.9X0A ; Intractable chronic migraine without aura and without status migrainosus G43.719 ; Anxiety F41.9 and Recurrent major depressive disorder, in partial remission F33.41 [facility] [id number], [place] [address]- 7927 September, [facility] [address], [place] [address]- 9474 September, Anxiety F41.9 [facility] [id number], [place] [address]- 9030 September, [facility] [place] [id number] [place] [address] [id number] September, Type 2 diabetes mellitus with unspecified complications E11.8 [facility] [place] [id number] [place] [address] [id number] September, Type 2 diabetes mellitus with unspecified complications E11.8 [facility] [address] [place] [id number] September, Essential hypertension I10 and History of traumatic brain injury Z87.820 [facility] [facility] [address] [place] [address] 47181- 3016 Aug, [facility] [address] [place] [id number] Aug, Type 2 diabetes mellitus with unspecified complications E11.8 and Benign prostatic hyperplasia with lower urinary tract symptoms, unspecified morphology N40.1 [facility] [place] [id number] [id number] Aug, [facility] [id number], [place] [address]- 1451 Aug, [facility] [address] [address] 3262 Jul, Traumatic brain injury, without LOC, initial encounter S06.9X0A ; Intractable chronic migraine without aura and without status migrainosus G43.719 ; Anxiety F41.9 and Recurrent major depressive disorder, in partial remission F33.41 [facility] [id number], [place] [address]- 4006 Jul, [facility] [id number], [place] [address]- 2871 Jul, [facility] [id number] [id number] Jun, [facility] [address], [place] [address]- 3504 Jun, [facility] [address], [place] [address]- 2568 Jun, [facility] [address] [place] [id number] Jun, Encounter to establish care Z76.89 [facility] [address] [place] [address] 82453- 4456 Jun, [facility] [id number] [place] [address] 87189- 6967 Jun, [facility] [address] [place] [address] 93981- 5257 Jun, [facility] [address], [place] [address]- 5[address] Jun, [facility] [address] [place] [address] May, Dental examination Z01.20 [facility] [address] [place] [address] Dec, Dental examination Z01.20 [facility] [address] [place] [address] September, Dental examination Z01.20 [facility] [address] [place] [address] Dec, Dental examination V72.2 [facility] [address], [place] [address]- 9641 14 Aug, 2014 [facility] [address], [place] [address]- 2278 13 Aug, 2014 [facility] [address], [place] [address]- 6764 Apr, [facility] [address] [facility] [id number] [address]- 2556 Nov, [facility] [id number], [place] [address]- 6[address] Nov, [facility] [id number], [place] [address]- 2986 Nov, [facility] [address], [place] [address]- 9158 Nov, [facility] [id number], [place] [address]- 0267 Oct, [facility] [address], [place] [address]- [address] May, [facility] [id number], [place] [address]- 7724 May, IMMUNIZATIONS No Known Immunizations SOCIAL HISTORY Never Assessed REASON FOR VISIT Routine Visit PLAN OF CARE Activity Details Follow Up 2 Months Reason: VITAL SIGNS MEDICATIONS Medication Instructions Dosage Frequency Start Date End Date Duration Status Melatonin 3 MG Orally Once a day 2 tablets at bedtime as needed with food 24h Active Topamax 25 MG Orally Twice a day 1 tablet 12h Jul, 30 day(s) Active MiraLax 17 gm/dose Orally Once a day 17 grams mixed in 8 oz of water or juice 24h Active Amitiza 24 MCG Orally Twice a day 1 capsule with food 12h Active Depakote Sprinkles 125 MG Orally 3 times a day 2 capsules 8h 30 days Active Allopurinol 300 MG Orally Once a day 1 tablet 24h Active Travatan Z 0.004 % Ophthalmic Once a day 1 drop into affected eye in the evening 24h Active Insulin Detemir 100 UNIT/ML Subcutaneous at bedtime 55 units Active Trazodone HCl 150 MG Orally Once a day 1 tablet at bedtime 24h 30 days Active Topamax 25 MG Orally Twice a day 1 tablet 12h Active Latuda 60 mg Orally Once a day 1 tablet with food 24h 30 days Active Urecholine 25 MG Orally 3 times a day 1 tablet 8h Active Systane 0.4-0.3 % Ophthalmic at bedtime 1 drop into both eyes Active Verapamil HCl ER 180 MG Orally twice a day 1 tablet 12h Active Vitamin D 2000 UNIT Orally Once a day 1 tablet 24h Active Fluvoxamine Maleate 100 mg Orally twice a day 1 tablet 12h 30 days Active Linzess 145 MCG Orally Once a day 1 capsule 24h Active NovoLog Flexpen 100 UNIT/ML Subcutaneous before meals per sliding scale Active Fluticasone Propionate 50 MCG/ACT Nasally Once a day 1 spray in each nostril 24h Active Loperamide HCl 2 MG Orally 8 time(s) a day 1 capsule Active Alfuzosin HCl ER 10 MG Orally Once a day 1 tablet immediately after the same meal 24h Active Effexor XR 75 MG Orally Once a day 1 capsule with food 24h 30 days Active Flomax 0.8 mg Orally Once a day 1 capsule 24h Dec, 30 days Active Morphine Sulfate ER 30 MG Orally every 12 hrs 1 tablet 12h 10 Aug, 2016 28 days Active RESULTS No Results PROCEDURES Procedure Date Ordered Result Body Site Minor complication (15 mins) September 21, 2016 INSTRUCTIONS MEDICATIONS ADMINISTERED No Known Medications MEDICAL (GENERAL) HISTORY Type Description Date Medical History History of traumatic brain injury Subdural hematoma from falling out of bed 2012 Medical History Type 2 diabetes mellitus with unspecified complications Medical History group home current use of insulin Medical 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 elbow Hospitalization History left ankle Hospitalization History [facility] Hospitalization History [facility] [place] ?-11/2017
--- OUTSIDE RECORDS SUMMARY | 2018-07-02 11:54 | XMS REPORT ---
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41 Active 25303177 Problem Traumatic brain injury, without LOC, initial encounter S06.9X0A Active 073830931 Problem Benign prostatic hyperplasia with lower urinary tract symptoms, unspecified morphology N40.1 Active 849558312 Problem Intractable chronic migraine without aura and without status migrainosus G43.719 Active 880921825 Problem Glaucoma, unspecified glaucoma, unspecified laterality H40.9 Active 81771352 Problem Weak urinary stream R39.12 Active 48428792 Problem Rad (reactive airway disease), mild intermittent, uncomplicated J45.20 Active 529676432116 Problem Obsessive-compulsive disorder, unspecified type F42.9 Active 320188036 Problem Herpes B00.9 Active 16122995 Problem Gastroesophageal reflux disease without esophagitis K21.9 Active 519441194 Problem Anemia, unspecified type D64.9 Active 955587619 Problem Essential hypertension I10 Active 31521628 Problem Type 2 diabetes mellitus with unspecified complications E11.8 Active 52259817 Problem History of gout Z87.39 Active 730811589 Problem Anxiety F41.9 Active 69792477 ALLERGIES No Information ENCOUNTERS Encounter Location Date Diagnosis [facility] [address] [place] [address] Jan, [facility] [address] [place] [address] Dec, Anxiety F41.9 ; Traumatic brain injury, without LOC, initial encounter S06.9X0A ; Intractable chronic migraine without aura and without status migrainosus G43.719 ; Recurrent major depressive disorder, in partial remission F33.41 ; 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 and Cystitis N30.90 [facility] [address] [place] [address] 16 Dec, 2017 Anxiety F41.9 ; Traumatic brain injury, without LOC, initial encounter S06.9X0A ; Intractable chronic migraine without aura and without status migrainosus G43.719 ; Recurrent major depressive disorder, in partial remission F33.41 and 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 [facility] [facility] [id number] [place] [address] Oct, [facility] [address] [place] [id number] Oct, Excessive anger R45.4 and Obsessive-compulsive disorder, unspecified type F42.9 [facility] [id number] [place] [address]66[address] 1053 Oct, Anxiety F41.9 ; Traumatic brain injury, without LOC, initial encounter S06.9X0A ; Intractable chronic migraine without aura and without status migrainosus G43.719 and Recurrent major depressive disorder, in partial remission F33.41 [facility] [id number] [place] [address]294[address] 6878 Oct, [facility] [id number] [place] [address] 20451[address] 5593 Oct, [place] [id number] [place] [address]1424- 9574 Oct, [facility] [id number] [place] [address]49[address] 8026 September, Anxiety F41.9 ; Traumatic brain injury, without LOC, initial encounter S06.9X0A ; Intractable chronic migraine without aura and without status migrainosus G43.719 and Recurrent major depressive disorder, in partial remission F33.41 [facility] [address] [place] [id number] September, Weight gain R63.5 and Type 2 diabetes mellitus with unspecified complications E11.8 [facility] [address] [place] [address]138[address] 5[address] September, [facility] [id number] [place] [address]003[address] 7878 Aug, [facility] [address] [place] [address] Aug, [facility] [id number] [place] [address] 1390 Aug, [facility] [id number] [place] [address] 26904- 9954 Jul, Intractable chronic migraine without aura and without status migrainosus G43.719 [facility] [address] [place] [address] 99595- 2291 Jul, Intractable chronic migraine without aura and without status migrainosus G43.719 [facility] [address] [place] [id number] Jul, History of traumatic brain injury Z87.820 ; Recurrent major depressive disorder, in partial remission F33.41 and Type 2 diabetes mellitus with unspecified complications E11.8 [facility] [id number] [id number] Jul, [facility] [id number] [place] [id number] Jul, Intractable chronic migraine without aura and without status migrainosus G43.719 [facility] [id number] [address] Jun, Anxiety F41.9 ; Traumatic brain injury, without LOC, initial encounter S06.9X0A ; Intractable chronic migraine without aura and without status migrainosus G43.719 and Recurrent major depressive disorder, in partial remission F33.41 [facility] [id number] [id number] Jun, [facility] [address] [address] Jun, [facility] [id number] [place] [id number] Jun, Intractable chronic migraine without aura and without status migrainosus G43.719 [facility] [id number] [place] [address] May, [facility] [address] [place] [id number] May, Recurrent major depressive disorder, in partial remission F33.41 ; Traumatic brain injury, without LOC, initial encounter S06.9X0A and Anxiety F41.9 [facility] [address] [place] [address] 02740- 8989 May, [facility] [id number] [place] [address] [id number] May, [facility] [address] [place] [address] 05181- 0612 May, Intractable chronic migraine without aura and without status migrainosus G43.719 [facility] [address] [place] [address] 00631- 2083 Apr, Anxiety F41.9 ; Traumatic brain injury, without LOC, initial encounter S06.9X0A ; Intractable chronic migraine without aura and without status migrainosus G43.719 and Recurrent major depressive disorder, in partial remission F33.41 [facility] [id number] [address] Apr, [facility] [id number] [place] [id number] Apr, Intractable chronic migraine without aura and without status migrainosus G43.719 [facility] [id number] [address] 2546 Apr, [facility] [address], [place] [address] Apr, [facility] [id number] [id number] Mar, [facility] [address] [address] Mar, [facility] [id number] [id number] Mar, [facility] [address] [address] Mar, Intractable chronic migraine without aura and without status migrainosus G43.719 [facility] [address] [place] [id number] Mar, Encounter for examination for admission to correction Z02.2 ; History of traumatic brain injury Z87.820 ; Recurrent major depressive disorder, in partial remission F33.41 ; Anxiety F41.9 ; Obsessive-compulsive disorder, unspecified type F42.9 ; Essential hypertension I10 and Type 2 diabetes mellitus with unspecified complications E11.8 [facility] [id number] [id number] Feb, [facility] [id number] [address] Feb, Obsessive-compulsive disorder, unspecified type F42.9 ; Anxiety F41.9 and Recurrent major depressive disorder, in partial remission F33.41 [facility] [id number] [address] Jan, Traumatic brain injury, without LOC, initial encounter S06.9X0A ; Intractable chronic migraine without aura and without status migrainosus G43.719 ; Anxiety F41.9 and Recurrent major depressive disorder, in partial remission F33.41 [facility] [id number], [place] [address] 20 Jan, 2017 Intractable chronic migraine without aura and without status migrainosus G43.719 [facility] [address], [place] [address] 19 Jan, 2017 History of traumatic brain injury Z87.820 ; Anxiety F41.9 and Recurrent major depressive disorder, in partial remission F33.41 [facility] [address], [place] [address] 13 Jan, 2017 [facility] [address] [place] [id number] Jan, History of traumatic brain injury Z87.820 and Obsessive-compulsive disorder, unspecified type F42.9 [place] [address] [address] 06 Jan, 2017 Traumatic brain injury, without LOC, initial encounter S06.9X0A ; Intractable chronic migraine without aura and without status migrainosus G43.719 ; Anxiety F41.9 and Recurrent major depressive disorder, in partial remission F33.41 [place] [address] [place] [address] 44265- 9879 05 Jan, 2017 History of traumatic brain injury Z87.820 ; Obsessive- compulsive disorder, unspecified type F42.9 ; Anxiety F41.9 and Recurrent major depressive disorder, in partial remission F33.41 [facility] [id number] [id number] Dec, [facility] [id number] [place] [id number] Dec, Intractable chronic migraine without aura and without status migrainosus G43.719 [facility] [address] [place] [id number] Dec, Type 2 diabetes mellitus with unspecified complications E11.8 and Essential hypertension I10 [place] [address] [place] [address] 07032- 0417 Dec, Traumatic brain injury, without LOC, initial encounter S06.9X0A [facility] [id number] [address] 16 Dec, 2016 Traumatic brain injury, without LOC, initial encounter S06.9X0A ; Intractable chronic migraine without aura and without status migrainosus G43.719 ; Anxiety F41.9 and Recurrent major depressive disorder, in partial remission F33.41 [facility] [address] [place] [address] 17857- 4226 15 Dec, 2016 [facility] [address] [place] [address] 66889- 9296 Dec, History of traumatic brain injury Z87.820 ; Obsessive- compulsive disorder, unspecified type F42.9 ; Anxiety F41.9 and Recurrent major depressive disorder, in partial remission F33.41 [place] [address] [place] [address] 68984- 4184 09 Dec, 2016 Traumatic brain injury, without LOC, initial encounter S06.9X0A [facility] [address] [place] [address] 89432- 3338 03 Dec, 2016 Anxiety F41.9 and Recurrent major depressive disorder, in partial remission F33.41 [facility] [address], [place] [address]- 6[address] 02 Dec, 2016 Traumatic brain injury, without LOC, initial encounter S06.9X0A ; Intractable chronic migraine without aura and without status migrainosus G43.719 ; Anxiety F41.9 and Recurrent major depressive disorder, in partial remission F33.41 [facility] [address], [place] [address] 228[address] Dec, [facility] [id number] [place] [id number] Nov, Intractable chronic migraine without aura and without status migrainosus G43.719 [facility] [address] [place] [id number] Nov, Obsessive-compulsive disorder, unspecified type F42.9 ; Anxiety F41.9 and Intractable chronic migraine without aura and without status migrainosus G43.719 [facility] [id number], [place] [address]- 0[address] Nov, Traumatic brain injury, without LOC, initial encounter S06.9X0A ; Intractable chronic migraine without aura and without status migrainosus G43.719 ; Anxiety F41.9 and Recurrent major depressive disorder, in partial remission F33.41 [facility] [address] [id number] [id number] Nov, [facility] [id number] [place] [address] 56711- 9034 Nov, Anxiety F41.9 and Recurrent major depressive disorder, in partial remission F33.41 [facility] [address], [place] [address]- 2[address] Nov, [facility] [id number] [place] [id number] Nov, [facility] [id number] [address]- 0048 Oct, [facility] [id number] [place] [address] [id number]- 5776 Oct, Anxiety F41.9 and Recurrent major depressive disorder, in partial remission F33.41 [facility] [id number] [address]- 5316 Oct, [facility] [id number], [place] [address] 2546 September, Anxiety F41.9 and Recurrent major depressive disorder, in partial remission F33.41 [facility] [id number] [address]406 September, Traumatic brain injury, without LOC, initial encounter S06.9X0A ; Intractable chronic migraine without aura and without status migrainosus G43.719 ; Anxiety F41.9 and Recurrent major depressive disorder, in partial remission F33.41 [facility] [id number], [place] [address]- 4[address] September, [facility] [address] [address] 5183 September, Anxiety F41.9 [facility] [address] [id number], [place] [address]- 2286 September, [facility] [id number] [place] [address] [id number] September, Type 2 diabetes mellitus with unspecified complications E11.8 [facility] [id number] [place] [address] [id number] September, Type 2 diabetes mellitus with unspecified complications E11.8 [facility] [address] [place] [id number] September, Essential hypertension I10 and History of traumatic brain injury Z87.820 [place] [address] [place] [address] 84854- 2556 Aug, [facility] [address] [place] [id number] Aug, Type 2 diabetes mellitus with unspecified complications E11.8 and Benign prostatic hyperplasia with lower urinary tract symptoms, unspecified morphology N40.1 [facility] [id number] [id number] Aug, [facility] [address], [place] [address]- 9141 Aug, [facility] [address] [id number] [address]- 9254 Jul, Traumatic brain injury, without LOC, initial encounter S06.9X0A ; Intractable chronic migraine without aura and without status migrainosus G43.719 ; Anxiety F41.9 and Recurrent major depressive disorder, in partial remission F33.41 [facility] [id number], [place] [address]- 1135 Jul, [facility] [address], [place] [address] 62[address] Jul, [facility] [id number] [id number] Jun, [facility] [address], [place] [address]- 7[address] Jun, [facility] [address], [place] [address] Jun, [facility] [address] [place] [id number] Jun, Encounter to establish care Z76.89 [facility] [address] [place] [address] 101818- 9906 Jun, [facility] [address], [place] [address]- 9958 Jun, [facility] [id number] [place] [address] 43523- 5892 Jun, [facility] [address], [place] [address]- 5137 Jun, [facility] [address] [place] [address] May, Dental examination Z01.20 [facility] [address] [place] [address] Dec, Dental examination Z01.20 [facility] [address] [place] [address] September, Dental examination Z01.20 [facility] [address] [place] [address] Dec, Dental examination V72.2 [facility] [address], [place] [address]- 7[address] Aug, [facility] [address], [place] [address]- 6[address] Aug, [facility] [address], [place] [address]- 5366 Apr, [facility] [address] [facility] [id number], [place] [address]- 2031 Nov, [facility] [address] [facility] [id number], [place] [address]- 2596 Nov, [facility] [address] [facility] [id number]67[place] 4235 Nov, [facility] [address], [place] [address]- 0[address] Nov, [facility] [address] [facility] [id number], [place] [address]- 1074 Oct, [facility] [address] [facility] [id number], [place] [address]- [address] May, [facility] [address] [facility] [id number], [place] [address]- 5[address] May, IMMUNIZATIONS No Known Immunizations SOCIAL HISTORY Never Assessed REASON FOR VISIT Care Home PLAN OF CARE Activity Details Follow Up prn Reason: VITAL SIGNS MEDICATIONS Medication Instructions Dosage Frequency Start Date End Date Duration Status Vitamin D 2000 UNIT Orally Once a day 1 tablet 24h Active MetFORMIN HCl ER 500 mg Orally twice a day then in 4 days increase to 1 tab in AM and 2 in PM and in 4 days increase to 2 tabs bid 1 tablet May, Active Exelon 4.6 MG/24HR Transdermal Once a day 1 patch to skin 24h Active Latanoprost 0.005 % Ophthalmic Once a day 1 drop into affected eye in the evening 24h Active Fluvoxamine Maleate 25 MG Orally Twice a day 1 tablet (give with 100mg tablet) 12h 30 day(s) Active Trazodone HCl 150 MG Orally Once a day 1 tablet at bedtime 24h 30 days Active Lactulose 20 GM/30ML Orally twice a day 30 ml 12h Active Latuda 60 mg Orally Once a day 1 tablet with food 24h 30 days Active Depakote Sprinkles 125 MG Orally 3 times a day 4 capsules 8h 30 days Active Effexor XR 75 MG Orally Once a day 1 capsule with food 24h 30 days Active Amaryl 5 mg Orally Once a day 1 tablet with breakfast or the first main meal of the day 24h Jun, Active Timolol Maleate 0.5 % Ophthalmic twice a day 1 drop into danielle eyes 12h Active MiraLax 17 gm/dose Orally every 12 hrs as needed 17 grams mixed in 8 oz of water or juice Active Fluvoxamine Maleate 100 mg Orally Twice a day 1 tablet 12h 30 day(s) Active Topamax 25 MG Orally Twice a day 1 tablet 12h 30 day(s) Active Colace 100 mg Orally twice a day 1 capsule 12h Oct, 30 day(s) Active Urecholine 25 MG Orally 3 times a day 1 tablet 8h Active Verapamil HCl ER 180 MG Orally twice a day 1 tablet 12h Active Saline Nasal Warren 0.65 % Nasally every 2 hrs 2 sprays in each nostril as needed Active Melatonin 3 MG Orally Once a day 3 tablets at bedtime 24h Active Ibuprofen 200 MG Orally every 4-6 hours as needed 3 tablets Active Dulaglutide 0.75 MG/0.5ML Subcutaneous once weekly as directed September, Active Flomax 0.4 MG Orally Once a day 2 capsules 24h Active Lotrisone 1-0.05 % Externally Twice a day prn 1 application to affected area Active Allopurinol 300 MG Orally Once a day 1 tablet 24h Active Clonazepam 1 MG Orally 3 times a day 1 tablet 8h 28 days Active RESULTS No Results PROCEDURES Procedure Date Ordered Result Body Site Minor complication (15 mins) November 11, 2017 INSTRUCTIONS MEDICATIONS ADMINISTERED No Known Medications MEDICAL (GENERAL) HISTORY Type Description Date Medical History History of traumatic brain injury Subdural hematoma from falling out of bed 2012 Medical History Type 2 diabetes mellitus with unspecified complications Medical History long-term current use of insulin Medical 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
--- OUTSIDE RECORDS SUMMARY | 2018-07-02 11:54 | XMS REPORT ---
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 Active 28878787 Problem History of traumatic brain injury Z87.820 Active 03184026416796 Problem Benign prostatic hyperplasia with lower urinary tract symptoms, unspecified morphology N40.1 Active 041903067 Problem Persistent migraine aura without cerebral infarction and without status migrainosus, not intractable G43.509 Active 764716425 Problem Type 2 diabetes mellitus with unspecified complications E11.8 Active 87638725 Problem Traumatic brain injury, without LOC, initial encounter S06.9X0A Active 568663386 Problem 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 Active 83560649 Problem Intractable chronic migraine without aura and without status migrainosus G43.719 Active 813544424 Problem Recurrent major depressive disorder, in partial remission F33.41 Active 55430864 Problem Obsessive-compulsive disorder, unspecified type F42.9 Active 093797123 Problem Glaucoma, unspecified glaucoma, unspecified laterality H40.9 Active 16054078 Problem Hyperlipidemia, unspecified hyperlipidemia type E78.5 Active 03089653 Problem Rad (reactive airway disease), mild intermittent, uncomplicated J45.20 Active 335003487792 Problem History of gout Z87.39 Active 055014420 Problem Herpes B00.9 Active 02975096 Problem Weak urinary stream R39.12 Active 13867767 Problem Gastroesophageal reflux disease without esophagitis K21.9 Active 207547786 Problem Anemia, unspecified type D64.9 Active 990764269 Problem Essential hypertension I10 Active 02619613 ALLERGIES No Information ENCOUNTERS Encounter Location Date Diagnosis [facility] [address] [place] [address] Dec, [facility] [address] [place] [address] 16 Dec, 2017 Anxiety F41.9 ; Traumatic brain injury, without LOC, initial encounter S06.9X0A ; Intractable chronic migraine without aura and without status migrainosus G43.719 ; Recurrent major depressive disorder, in partial remission F33.41 and 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 [place] [id number] [place] [address] 22 Oct, 2017 [facility] [address] [place] [id number] Oct, Excessive anger R45.4 and Obsessive-compulsive disorder, unspecified type F42.9 [place] [id number] [place] [address] 5[address] Oct, Anxiety F41.9 ; Traumatic brain injury, without LOC, initial encounter S06.9X0A ; Intractable chronic migraine without aura and without status migrainosus G43.719 and Recurrent major depressive disorder, in partial remission F33.41 [facility] [id number] [place] [address] 80[address] 12 Oct, 2017 [facility] [id number] [address] 05 Oct, 2017 [place] [id number] [place] [address] 45[address] Oct, [facility] [id number] [place] [address] 67[address] September, Anxiety F41.9 ; Traumatic brain injury, without LOC, initial encounter S06.9X0A ; Intractable chronic migraine without aura and without status migrainosus G43.719 and Recurrent major depressive disorder, in partial remission F33.41 [facility] [address] [place] [id number] September, Weight gain R63.5 and Type 2 diabetes mellitus with unspecified complications E11.8 [facility] [id number] [address] September, [facility] [address] [address] Aug, [facility] [place] [address] [place] [address] Aug, [facility] [address] [place] [address] 8901 Aug, [facility] [address] [place] [address] 33385- 2670 Jul, Intractable chronic migraine without aura and without status migrainosus G43.719 [facility] [address], [place] [address] Jul, Intractable chronic migraine without aura and without status migrainosus G43.719 [facility] [address] [place] [id number] Jul, History of traumatic brain injury Z87.820 ; Recurrent major depressive disorder, in partial remission F33.41 and Type 2 diabetes mellitus with unspecified complications E11.8 [facility] [id number] [id number] Jul, [facility] [id number] [place] [id number] Jul, Intractable chronic migraine without aura and without status migrainosus G43.719 [facility] [id number] [address] Jun, Anxiety F41.9 ; Traumatic brain injury, without LOC, initial encounter S06.9X0A ; Intractable chronic migraine without aura and without status migrainosus G43.719 and Recurrent major depressive disorder, in partial remission F33.41 [facility] [id number] [address] Jun, [facility] [address] [address] Jun, [facility] [address] [place] [id number] [id number] Jun, Intractable chronic migraine without aura and without status migrainosus G43.719 [facility] [address] [facility] [id number], [place] [address] May, [facility] [address] [place] [id number] May, Recurrent major depressive disorder, in partial remission F33.41 ; Traumatic brain injury, without LOC, initial encounter S06.9X0A and Anxiety F41.9 [facility] [id number], [place] [address] May, [facility] [address] [id number] [id number] May, [facility] [id number] [address] May, Intractable chronic migraine without aura and without status migrainosus G43.719 [facility] [id number], [place] [address] Apr, Anxiety F41.9 ; Traumatic brain injury, without LOC, initial encounter S06.9X0A ; Intractable chronic migraine without aura and without status migrainosus G43.719 and Recurrent major depressive disorder, in partial remission F33.41 [facility] [id number] [address] Apr, [facility] [address] [id number] [address] Apr, Intractable chronic migraine without aura and without status migrainosus G43.719 [facility] [id number], [place] [address] 2546 Apr, [facility] [id number] [address] Apr, [facility] [id number] [address] Mar, [facility] [id number], [place] [address] Mar, [facility] [id number] [id number] Mar, [facility] [id number], [place] [address] Mar, Intractable chronic migraine without aura and without status migrainosus G43.719 [facility] [address] [place] [id number] Mar, Encounter for examination for admission to senior living Z02.2 ; History of traumatic brain injury Z87.820 ; Recurrent major depressive disorder, in partial remission F33.41 ; Anxiety F41.9 ; Obsessive-compulsive disorder, unspecified type F42.9 ; Essential hypertension I10 and Type 2 diabetes mellitus with unspecified complications E11.8 [facility] [id number] [id number] Feb, [facility] [id number] [address] 10 Feb, 2017 Obsessive-compulsive disorder, unspecified type F42.9 ; Anxiety F41.9 and Recurrent major depressive disorder, in partial remission F33.41 [facility] [id number] [address] 27 Jan, 2017 Traumatic brain injury, without LOC, initial encounter S06.9X0A ; Intractable chronic migraine without aura and without status migrainosus G43.719 ; Anxiety F41.9 and Recurrent major depressive disorder, in partial remission F33.41 [facility] [id number], [place] [address] 20 Jan, 2017 Intractable chronic migraine without aura and without status migrainosus G43.719 [facility] [id number], [place] [address] 19 Jan, 2017 History of traumatic brain injury Z87.820 ; Anxiety F41.9 and Recurrent major depressive disorder, in partial remission F33.41 [facility] [id number], [place] [address] 13 Jan, 2017 [facility] [address] [place] [address] 07 Jan, 2017 History of traumatic brain injury Z87.820 and Obsessive-compulsive disorder, unspecified type F42.9 [facility] [address] [place] [address] 46789- 1269 06 Jan, 2017 Traumatic brain injury, without LOC, initial encounter S06.9X0A ; Intractable chronic migraine without aura and without status migrainosus G43.719 ; Anxiety F41.9 and Recurrent major depressive disorder, in partial remission F33.41 [facility] [address] [place] [address] 36498- 8319 05 Jan, 2017 History of traumatic brain injury Z87.820 ; Obsessive- compulsive disorder, unspecified type F42.9 ; Anxiety F41.9 and Recurrent major depressive disorder, in partial remission F33.41 [facility] [id number], [place] [address] Dec, [facility] [id number] [place] [id number] Dec, Intractable chronic migraine without aura and without status migrainosus G43.719 [facility] [address] [place] [id number] Dec, Type 2 diabetes mellitus with unspecified complications E11.8 and Essential hypertension I10 [facility] [id number] [place] [address] 89594- 1888 Dec, Traumatic brain injury, without LOC, initial encounter S06.9X0A [facility] [address] [place] [address] 80219- 6761 16 Dec, 2016 Traumatic brain injury, without LOC, initial encounter S06.9X0A ; Intractable chronic migraine without aura and without status migrainosus G43.719 ; Anxiety F41.9 and Recurrent major depressive disorder, in partial remission F33.41 [facility] [address], [place] [address] 0592 Dec, [place] [address] [place] [address] 16394- 2917 Dec, History of traumatic brain injury Z87.820 ; Obsessive- compulsive disorder, unspecified type F42.9 ; Anxiety F41.9 and Recurrent major depressive disorder, in partial remission F33.41 [place] [id number] [place] [address] 67355- 1861 09 Dec, 2016 Traumatic brain injury, without LOC, initial encounter S06.9X0A [place] [address] [place] [address] 25944- 6402 Dec, Anxiety F41.9 and Recurrent major depressive disorder, in partial remission F33.41 [place] [address] [place] [address] 45890- 8450 02 Dec, 2016 Traumatic brain injury, without LOC, initial encounter S06.9X0A ; Intractable chronic migraine without aura and without status migrainosus G43.719 ; Anxiety F41.9 and Recurrent major depressive disorder, in partial remission F33.41 [place] [id number] [place] [address] 19955- 4322 Dec, [facility] [id number] [place] [address] [id number] Nov, Intractable chronic migraine without aura and without status migrainosus G43.719 [facility] [address] [place] [address] Nov, Obsessive-compulsive disorder, unspecified type F42.9 ; Anxiety F41.9 and Intractable chronic migraine without aura and without status migrainosus G43.719 [place] [address] [place] [address] 45914- 5911 Nov, Traumatic brain injury, without LOC, initial encounter S06.9X0A ; Intractable chronic migraine without aura and without status migrainosus G43.719 ; Anxiety F41.9 and Recurrent major depressive disorder, in partial remission F33.41 [facility] [address] [id number] [id number] Nov, [facility] [address], [place] [address] 0[address] Nov, Anxiety F41.9 and Recurrent major depressive disorder, in partial remission F33.41 [facility] [address], [place] [address]- 3716 Nov, [facility] [id number] [place] [address] [id number] Nov, [facility] [address] [place] [address] 80257- 4762 Oct, [facility] [id number] [place] [address] 65955- 3156 Oct, Anxiety F41.9 and Recurrent major depressive disorder, in partial remission F33.41 [facility] [address], [place] [address]- 3962 Oct, [facility] [address], [place] [address]- 6581 September, Anxiety F41.9 and Recurrent major depressive disorder, in partial remission F33.41 [facility] [address], [place] [address] 2049 September, Traumatic brain injury, without LOC, initial encounter S06.9X0A ; Intractable chronic migraine without aura and without status migrainosus G43.719 ; Anxiety F41.9 and Recurrent major depressive disorder, in partial remission F33.41 [facility] [address], [place] [address]- 0[address] September, [facility] [address], [place] [address]- 9516 September, Anxiety F41.9 [facility] [address], [place] [address]- 2752 September, [facility] [id number], [place] [id number] September, Type 2 diabetes mellitus with unspecified complications E11.8 [facility] [id number] [address] September, Type 2 diabetes mellitus with unspecified complications E11.8 [facility] [address] [place] [address] September, Essential hypertension I10 and History of traumatic brain injury Z87.820 [facility] [address], [place] [address] 2516 Aug, [facility] [address] [place] [address] Aug, Type 2 diabetes mellitus with unspecified complications E11.8 and Benign prostatic hyperplasia with lower urinary tract symptoms, unspecified morphology N40.1 [facility] [id number] [address] Aug, [facility] [address], [place] [address]- 3456 Aug, [facility] [address] [place] [address] 42895800- 3710 Jul, Traumatic brain injury, without LOC, initial encounter S06.9X0A ; Intractable chronic migraine without aura and without status migrainosus G43.719 ; Anxiety F41.9 and Recurrent major depressive disorder, in partial remission F33.41 [facility] [address], [place] [address]- 1069 Jul, [facility] [address], [place] [address]- 6756 Jul, [facility] [id number] [place] [address] [id number] Jun, [facility] [address], [place] [address]- 0116 Jun, [facility] [id number] [place] [address] 81211- 3732 Jun, [facility] [address] [place] [id number] Jun, Encounter to establish care Z76.89 [facility] [address], [place] [address]- 4285 Jun, [facility] [address], [place] [address]- 0910 Jun, [facility] [address] [address] 3943 Jun, [facility] [address], [place] [address]- 1788 Jun, [facility] [address] [place] [address] May, Dental examination Z01.20 [facility] [address] [place] [address] Dec, Dental examination Z01.20 [facility] [address] [place] [address] September, Dental examination Z01.20 [facility] [address] [place] [address] Dec, Dental examination V72.2 [facility] [address], [place] [address]- 7052 Aug, [facility] [address], [place] [address]- 6302 Aug, [facility] [address], [place] [address]- 7291 Apr, [facility] [address] [address] 239[address] Nov, [facility] [address] [address]85 Nov, [facility] [id number], [place] [address]- 2887 Nov, [facility] [address] [facility] [id number] [address]- 3266 Nov, [facility] [address] [facility] [id number] [address]- 1234 Oct, [facility] [address] [facility] [id number] [address]- 3196 May, [facility] [address] [facility] [id number], [place] [address]- 7626 May, IMMUNIZATIONS No Known Immunizations SOCIAL HISTORY Never Assessed REASON FOR VISIT visit follow up PLAN OF CARE VITAL SIGNS MEDICATIONS Unknown Medications RESULTS No Results PROCEDURES No Known procedures INSTRUCTIONS MEDICATIONS ADMINISTERED No Known Medications MEDICAL (GENERAL) HISTORY Type Description Date Medical History History of traumatic brain injury Subdural hematoma from falling out of bed 2012 Medical History Type 2 diabetes mellitus with unspecified complications Medical History buttermaker current use of insulin Medical 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 elbow Hospitalization History left ankle Hospitalization History [facility] Hospitalization History [facility] ?-11/2017
--- OUTSIDE RECORDS SUMMARY | 2018-07-02 11:54 | XMS REPORT ---
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 Active 13528775 Problem History of traumatic brain injury Z87.820 Active 88110321783555 Problem Persistent migraine aura without cerebral infarction and without status migrainosus, not intractable G43.509 Active 844090494 Problem Recurrent major depressive disorder, in partial remission F33.41 Active 00323236 Problem Traumatic brain injury, without LOC, initial encounter S06.9X0A Active 932569670 Problem Benign prostatic hyperplasia with lower urinary tract symptoms, unspecified morphology N40.1 Active 076484752 Problem Intractable chronic migraine without aura and without status migrainosus G43.719 Active 137337316 Problem Glaucoma, unspecified glaucoma, unspecified laterality H40.9 Active 84610474 Problem Weak urinary stream R39.12 Active 98129156 Problem Rad (reactive airway disease), mild intermittent, uncomplicated J45.20 Active 858061001961 Problem Obsessive-compulsive disorder, unspecified type F42.9 Active 481902133 Problem Herpes B00.9 Active 69530215 Problem Gastroesophageal reflux disease without esophagitis K21.9 Active 091873524 Problem Anemia, unspecified type D64.9 Active 781751994 Problem Essential hypertension I10 Active 93759260 Problem Type 2 diabetes mellitus with unspecified complications E11.8 Active 30550905 Problem History of gout Z87.39 Active 796490343 Problem Anxiety F41.9 Active 36116996 ALLERGIES Substance Reaction Event Type Date Status Prozac Unknown Drug Allergy Oct, Active Penicillin V Potassium Unknown Drug Allergy Oct, Active Abilify Unknown Drug Allergy Oct, Active ENCOUNTERS Encounter Location Date Diagnosis [facility] [address] [place] [address] Jan, [facility] [address] [place] [address] 30 Dec, 2017 Anxiety F41.9 ; Traumatic brain injury, without LOC, initial encounter S06.9X0A ; Intractable chronic migraine without aura and without status migrainosus G43.719 ; Recurrent major depressive disorder, in partial remission F33.41 ; 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 and Cystitis N30.90 [facility] [address] [place] [address] 16 Dec, 2017 Anxiety F41.9 ; Traumatic brain injury, without LOC, initial encounter S06.9X0A ; Intractable chronic migraine without aura and without status migrainosus G43.719 ; Recurrent major depressive disorder, in partial remission F33.41 and 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 [facility] [id number] [place] [address] Oct, [facility] [address] [facility] [place] [id number] Oct, Excessive anger R45.4 and Obsessive-compulsive disorder, unspecified type F42.9 [place] [facility] [id number] [place] [address] 2096 Oct, Anxiety F41.9 ; Traumatic brain injury, without LOC, initial encounter S06.9X0A ; Intractable chronic migraine without aura and without status migrainosus G43.719 and Recurrent major depressive disorder, in partial remission F33.41 [facility] [id number] [place] [address]2 Oct, [facility] [address] [place] [address] 1761 Oct, [facility] [address] [place] [address] Oct, [facility] [id number] [place] [address] September, Anxiety F41.9 ; Traumatic brain injury, without LOC, initial encounter S06.9X0A ; Intractable chronic migraine without aura and without status migrainosus G43.719 and Recurrent major depressive disorder, in partial remission F33.41 [facility] [address] [place] [id number] September, Weight gain R63.5 and Type 2 diabetes mellitus with unspecified complications E11.8 [facility] [id number] [place] [address]27 September, [facility] [id number] [place] [address] Aug, [facility] [address] [place] [address] Aug, [facility] [id number] [place] [address] 7414 Aug, [facility] [address] [place] [address] 8110[address] 5684 Jul, Intractable chronic migraine without aura and without status migrainosus G43.719 [facility] [address], [place] [address] Jul, Intractable chronic migraine without aura and without status migrainosus G43.719 [facility] [address] [place] [id number] Jul, History of traumatic brain injury Z87.820 ; Recurrent major depressive disorder, in partial remission F33.41 and Type 2 diabetes mellitus with unspecified complications E11.8 [facility] [id number] [id number] Jul, [facility] [id number] [id number] Jul, Intractable chronic migraine without aura and without status migrainosus G43.719 [place] [id number] [address] Jun, Anxiety F41.9 ; Traumatic brain injury, without LOC, initial encounter S06.9X0A ; Intractable chronic migraine without aura and without status migrainosus G43.719 and Recurrent major depressive disorder, in partial remission F33.41 [facility] [id number] [id number] Jun, [facility] [address], [place] [address] Jun, [facility] [id number] [place] [id number] Jun, Intractable chronic migraine without aura and without status migrainosus G43.719 [facility] [address] [place] [address]- 8822 May, [facility] [address] [place] [id number] May, Recurrent major depressive disorder, in partial remission F33.41 ; Traumatic brain injury, without LOC, initial encounter S06.9X0A and Anxiety F41.9 [facility] [address] [place] [address] 1722 May, [facility] [id number] [id number] May, [facility] [address], [place] [address] May, Intractable chronic migraine without aura and without status migrainosus G43.719 [facility] [id number] [place] [address]- 6395 Apr, Anxiety F41.9 ; Traumatic brain injury, without LOC, initial encounter S06.9X0A ; Intractable chronic migraine without aura and without status migrainosus G43.719 and Recurrent major depressive disorder, in partial remission F33.41 [facility] [address], [place] [address] Apr, [facility] [address] [id number] [address] Apr, Intractable chronic migraine without aura and without status migrainosus G43.719 [facility] [id number] [address] Apr, [facility] [id number], [place] [address] Apr, [facility] [id number] [id number] Mar, [facility] [id number], [place] [address] Mar, [facility] [id number] [address] Mar, [facility] [id number] [address] Mar, Intractable chronic migraine without aura and without status migrainosus G43.719 [facility] [address] [place] [address] Mar, Encounter for examination for admission to fdc Z02.2 ; History of traumatic brain injury Z87.820 ; Recurrent major depressive disorder, in partial remission F33.41 ; Anxiety F41.9 ; Obsessive-compulsive disorder, unspecified type F42.9 ; Essential hypertension I10 and Type 2 diabetes mellitus with unspecified complications E11.8 [facility] [address] [id number] [id number] Feb, [facility] [address] [facility] [id number] Feb, Obsessive-compulsive disorder, unspecified type F42.9 ; Anxiety F41.9 and Recurrent major depressive disorder, in partial remission F33.41 [facility] [address] [facility] [id number] [address] Jan, Traumatic brain injury, without LOC, initial encounter S06.9X0A ; Intractable chronic migraine without aura and without status migrainosus G43.719 ; Anxiety F41.9 and Recurrent major depressive disorder, in partial remission F33.41 [facility] [address] [place] [address] 42796- 3681 20 Jan, 2017 Intractable chronic migraine without aura and without status migrainosus G43.719 [facility] [id number] [place] [address] 78120- 2510 19 Jan, 2017 History of traumatic brain injury Z87.820 ; Anxiety F41.9 and Recurrent major depressive disorder, in partial remission F33.41 [facility] [address] [place] [address] 41906- 8448 13 Jan, 2017 [facility] [address] [place] [id number] Jan, History of traumatic brain injury Z87.820 and Obsessive-compulsive disorder, unspecified type F42.9 [facility] [id number] [place] [address] 68601- 4095 06 Jan, 2017 Traumatic brain injury, without LOC, initial encounter S06.9X0A ; Intractable chronic migraine without aura and without status migrainosus G43.719 ; Anxiety F41.9 and Recurrent major depressive disorder, in partial remission F33.41 [facility] [address] [place] [address] 14046- 5846 05 Jan, 2017 History of traumatic brain injury Z87.820 ; Obsessive- compulsive disorder, unspecified type F42.9 ; Anxiety F41.9 and Recurrent major depressive disorder, in partial remission F33.41 [facility] [id number] [place] [id number] Dec, [facility] [id number] [place] [id number] Dec, Intractable chronic migraine without aura and without status migrainosus G43.719 [facility] [address] [place] [address] Dec, Type 2 diabetes mellitus with unspecified complications E11.8 and Essential hypertension I10 [facility] [address], [place] [address] 18 Dec, 2016 Traumatic brain injury, without LOC, initial encounter S06.9X0A [facility] [address] [place] [address] 74046- 0679 16 Dec, 2016 Traumatic brain injury, without LOC, initial encounter S06.9X0A ; Intractable chronic migraine without aura and without status migrainosus G43.719 ; Anxiety F41.9 and Recurrent major depressive disorder, in partial remission F33.41 [facility] [address] [place] [address] 34732- 4773 15 Dec, 2016 [place] [place] [id number] [place] [address] 95851- 7152 Dec, History of traumatic brain injury Z87.820 ; Obsessive- compulsive disorder, unspecified type F42.9 ; Anxiety F41.9 and Recurrent major depressive disorder, in partial remission F33.41 [place] [address] [place] [address] 33338- 2626 09 Dec, 2016 Traumatic brain injury, without LOC, initial encounter S06.9X0A [facility] [address] [place] [address] 55819- 3614 03 Dec, 2016 Anxiety F41.9 and Recurrent major depressive disorder, in partial remission F33.41 [facility] [address] [place] [address] 40507- 9034 02 Dec, 2016 Traumatic brain injury, without LOC, initial encounter S06.9X0A ; Intractable chronic migraine without aura and without status migrainosus G43.719 ; Anxiety F41.9 and Recurrent major depressive disorder, in partial remission F33.41 [facility] [address] [place] [address] 14646- 9656 Dec, [facility] [id number] [place] [address] [id number] Nov, Intractable chronic migraine without aura and without status migrainosus G43.719 [facility] [address] [place] [id number] Nov, Obsessive-compulsive disorder, unspecified type F42.9 ; Anxiety F41.9 and Intractable chronic migraine without aura and without status migrainosus G43.719 [facility] [address] [facility] [id number] [address] Nov, Traumatic brain injury, without LOC, initial encounter S06.9X0A ; Intractable chronic migraine without aura and without status migrainosus G43.719 ; Anxiety F41.9 and Recurrent major depressive disorder, in partial remission F33.41 [facility] [id number] [place] [id number] Nov, [facility] [id number], [place] [address]- 2326 Nov, Anxiety F41.9 and Recurrent major depressive disorder, in partial remission F33.41 [facility] [id number] [address]- 6533 Nov, [facility] [id number] [place] [address] [id number] Nov, [facility] [id number] [place] [address] 79702- 4166 Oct, [facility] [id number], [place] [address]- 8680 Oct, Anxiety F41.9 and Recurrent major depressive disorder, in partial remission F33.41 [facility] [id number] [address]- 2547 Oct, [facility] [id number] [place] [address] 40794- 3332 September, Anxiety F41.9 and Recurrent major depressive disorder, in partial remission F33.41 [facility] [id number] [address]- 4530 September, Traumatic brain injury, without LOC, initial encounter S06.9X0A ; Intractable chronic migraine without aura and without status migrainosus G43.719 ; Anxiety F41.9 and Recurrent major depressive disorder, in partial remission F33.41 [place] [place] [address], [place] [address]- 9587 September, [place] [address], [place] [address]- 3146 September, Anxiety F41.9 [place] [address] [place] [address] 22729- 9867 September, [place] [id number] [place] [id number] September, Type 2 diabetes mellitus with unspecified complications E11.8 [place] [id number] [place] [address] [id number] September, Type 2 diabetes mellitus with unspecified complications E11.8 [facility] [address] [place] [id number] September, Essential hypertension I10 and History of traumatic brain injury Z87.820 [place] [id number] [place] [address] 33351- 6530 Aug, [facility] [address] [place] [address] [id number] Aug, Type 2 diabetes mellitus with unspecified complications E11.8 and Benign prostatic hyperplasia with lower urinary tract symptoms, unspecified morphology N40.1 [place] [id number] [id number] Aug, [place] [address], [place] [address]- 4522 Aug, [place] [id number] [place] [address] 45856- 4331 Jul, Traumatic brain injury, without LOC, initial encounter S06.9X0A ; Intractable chronic migraine without aura and without status migrainosus G43.719 ; Anxiety F41.9 and Recurrent major depressive disorder, in partial remission F33.41 [place] [address], [place] [address]- 9075 Jul, [facility] [address], [place] [address] Jul, [facility] [place] [facility] [address] [id number] [id number] Jun, [facility] [address], [place] [address] 1406 Jun, [facility] [address], [place] [address] Jun, [address] [id number] Jun, Encounter to establish care Z76.89 [facility] [address], [place] [address]- 2693 Jun, [facility] [address], [place] [address]- 6326 Jun, [facility] [address], [place] [address]- 2059 Jun, [facility] [address], [place] [address]- 4518 Jun, [facility] [address] [place] [address] May, Dental examination Z01.20 [facility] [address] [place] [address] Dec, Dental examination Z01.20 [facility] [address] [place] [address] September, Dental examination Z01.20 [facility] [address] [place] [address] Dec, Dental examination V72.2 [facility] [address], [place] [address]- 9329 Aug, [facility] [address], [place] [address]- 2253 Aug, [facility] [id number], [place] [address]- 9036 Apr, [facility] [address], [place] [address]- 3413 Nov, [facility] [address], [place] [address]- 3558 Nov, [facility] [address], [place] [address]- 2838 Nov, [facility] [address], [place] [address]- 9339 Nov, [facility] [address], [place] [address]- 3950 Oct, [facility] [address], [place] [address]- 1109 May, [facility] [id number], [place] [address] 5165 May, IMMUNIZATIONS No Known Immunizations SOCIAL HISTORY Never Assessed REASON FOR VISIT f/u Raudel PLAN OF CARE Activity Details Follow Up 2 Months Reason: VITAL SIGNS Height 72.0 in 2017-11-10 Weight 230.7 lbs 2017-11-10 Heart Rate 96 bpm 2017-11-10 Respiratory Rate 20 2017-11-10 BMI 31.29 kg/m2 2017-11-10 Blood pressure systolic 144 mmHg 2017-11-10 Blood pressure diastolic 80 mmHg 2017-11-10 MEDICATIONS Medication Instructions Dosage Frequency Start Date End Date Duration Status Latanoprost 0.005 % Ophthalmic Once a day 1 drop into affected eye in the evening 24h Active Ibuprofen 200 MG Orally every 4-6 hours as needed 3 tablets Active Flomax 0.4 MG Orally Once a day 2 capsules 24h Active Saw Bradford (Serenoa repens) 450 MG Orally at bedtime 2 capsule Active MiraLax 17 gm/dose Orally every 12 hrs as needed 17 grams mixed in 8 oz of water or juice Active Topamax 25 MG Orally Twice a day 1 tablet 12h 30 day(s) Active Effexor XR 75 MG Orally Once a day 1 capsule with food 24h 30 days Active Urecholine 25 MG Orally 3 times a day 1 tablet 8h Active Melatonin 3 MG Orally Once a day 3 tablets at bedtime 24h Active Amaryl 5 mg Orally Once a day 1 tablet with breakfast or the first main meal of the day 24h 06 Jun, 2017 Active Timolol Maleate 0.5 % Ophthalmic twice a day 1 drop into danielle eyes 12h Active Exelon 4.6 MG/24HR Transdermal Once a day 1 patch to skin 24h Active Colace 100 mg Orally twice a day 1 capsule 12h Oct, 30 day(s) Active Clonazepam 1 MG Orally 3 times a day 1 tablet 8h 28 days Active Lactulose 20 GM/30ML Orally twice a day 30 ml 12h Active Dulaglutide 0.75 MG/0.5ML Subcutaneous once weekly as directed September, Active Saline Nasal [place] 0.65 % Nasally every 2 hrs 2 sprays in each nostril as needed Active Lotrisone 1-0.05 % Externally Twice a day prn 1 application to affected area Active Depakote Sprinkles 125 MG Orally 3 times a day 4 capsules 8h 30 days Active Trazodone HCl 150 MG Orally Once a day 1 tablet at bedtime 24h 30 days Active Fluvoxamine Maleate 100 mg Orally Twice a day 1 tablet 12h 30 day(s) Active Verapamil HCl ER 180 MG Orally twice a day 1 tablet 12h Active Zyprexa 2.5 MG Orally twice a day 1 tablet 12h Active Fluvoxamine Maleate 25 MG Orally Twice a day 1 tablet (give with 100mg tablet) 12h 30 day(s) Active Allopurinol 300 MG Orally Once a day 1 tablet 24h Active Latuda 60 mg Orally Once a day 1 tablet with food 24h 30 days Active MetFORMIN HCl ER 500 mg Orally twice a day then in 4 days increase to 1 tab in AM and 2 in PM and in 4 days increase to 2 tabs bid 1 tablet May, Active Vitamin D 2000 UNIT Orally Once a day 1 tablet 24h Active RESULTS No Results PROCEDURES Procedure Date Ordered Result Body Site [facility] VISIT ESTABLISHED PATIENT November 10, 2017 INSTRUCTIONS MEDICATIONS ADMINISTERED No Known Medications MEDICAL (GENERAL) HISTORY Type Description Date Medical History History of traumatic brain injury Subdural hematoma from falling out of bed 2012 Medical History Type 2 diabetes mellitus with unspecified complications 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
--- OUTSIDE RECORDS SUMMARY | 2018-07-02 11:55 | XMS REPORT ---
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 Active 78740626 Problem History of traumatic brain injury Z87.820 Active 13437651361918 Problem Benign prostatic hyperplasia with lower urinary tract symptoms, unspecified morphology N40.1 Active 003843265 Problem Persistent migraine aura without cerebral infarction and without status migrainosus, not intractable G43.509 Active 974165988 Problem Type 2 diabetes mellitus with unspecified complications E11.8 Active 95605984 Problem Traumatic brain injury, without LOC, initial encounter S06.9X0A Active 171972207 Problem 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 Active 96448222 Problem Intractable chronic migraine without aura and without status migrainosus G43.719 Active 350668428 Problem Recurrent major depressive disorder, in partial remission F33.41 Active 01239224 Problem Obsessive-compulsive disorder, unspecified type F42.9 Active 734336183 Problem Glaucoma, unspecified glaucoma, unspecified laterality H40.9 Active 55044582 Problem Hyperlipidemia, unspecified hyperlipidemia type E78.5 Active 40841610 Problem Rad (reactive airway disease), mild intermittent, uncomplicated J45.20 Active 750503989027 Problem History of gout Z87.39 Active 281426178 Problem Herpes B00.9 Active 98393440 Problem Weak urinary stream R39.12 Active 54978597 Problem Gastroesophageal reflux disease without esophagitis K21.9 Active 767765558 Problem Anemia, unspecified type D64.9 Active 279972978 Problem Essential hypertension I10 Active 74827601 ALLERGIES No Information ENCOUNTERS Encounter Location Date Diagnosis [facility] [address] [place] [address] Dec, [facility] [address] [place] [address] 16 Dec, 2017 Anxiety F41.9 ; Traumatic brain injury, without LOC, initial encounter S06.9X0A ; Intractable chronic migraine without aura and without status migrainosus G43.719 ; Recurrent major depressive disorder, in partial remission F33.41 and 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 [place] [id number] [place] [id number] [place] [address]46- 279[address] 22 Oct, 2017 [facility] [address] [place] [id number] Oct, Excessive anger R45.4 and Obsessive-compulsive disorder, unspecified type F42.9 [place] [id number] [place] [address]201 Oct, Anxiety F41.9 ; Traumatic brain injury, without LOC, initial encounter S06.9X0A ; Intractable chronic migraine without aura and without status migrainosus G43.719 and Recurrent major depressive disorder, in partial remission F33.41 [place] [id number] [place] [address]- [address] 12 Oct, 2017 [facility] [id number] [address] 05 Oct, 2017 [place] [id number] [place] [address] 9899 Oct, [place] [id number] [place] [address]4794[address] 49[address] September, Anxiety F41.9 ; Traumatic brain injury, without LOC, initial encounter S06.9X0A ; Intractable chronic migraine without aura and without status migrainosus G43.719 and Recurrent major depressive disorder, in partial remission F33.41 [facility] [address] [place] [id number] September, Weight gain R63.5 and Type 2 diabetes mellitus with unspecified complications E11.8 [facility] [id number] [address] September, [facility] [address] [address] Aug, [facility] [address] [place] [address] Aug, [facility] [id number] [place] [address]- 3036 Aug, [facility] [id number] [place] [address]661- 5876 Jul, Intractable chronic migraine without aura and without status migrainosus G43.719 [facility] [address], [place] [address] Jul, Intractable chronic migraine without aura and without status migrainosus G43.719 [facility] [address] [place] [id number] Jul, History of traumatic brain injury Z87.820 ; Recurrent major depressive disorder, in partial remission F33.41 and Type 2 diabetes mellitus with unspecified complications E11.8 [facility] [id number] [id number] Jul, [facility] [id number] [place] [id number] Jul, Intractable chronic migraine without aura and without status migrainosus G43.719 [facility] [id number] [address] Jun, Anxiety F41.9 ; Traumatic brain injury, without LOC, initial encounter S06.9X0A ; Intractable chronic migraine without aura and without status migrainosus G43.719 and Recurrent major depressive disorder, in partial remission F33.41 [facility] [id number] [id number] Jun, [facility] [address] [address] 20[address] Jun, [facility] [address] [place] [id number] [address] Jun, Intractable chronic migraine without aura and without status migrainosus G43.719 [facility] [address] [facility] [id number] [address] May, [facility] [address] [place] [address] May, Recurrent major depressive disorder, in partial remission F33.41 ; Traumatic brain injury, without LOC, initial encounter S06.9X0A and Anxiety F41.9 [facility] [id number], [place] [address] May, [facility] [address] [id number] [id number] May, [facility] [id number] [address] May, Intractable chronic migraine without aura and without status migrainosus G43.719 [facility] [id number], [place] [address] Apr, Anxiety F41.9 ; Traumatic brain injury, without LOC, initial encounter S06.9X0A ; Intractable chronic migraine without aura and without status migrainosus G43.719 and Recurrent major depressive disorder, in partial remission F33.41 [facility] [id number], [place] [address] Apr, [facility] [address] [id number] [address] Apr, Intractable chronic migraine without aura and without status migrainosus G43.719 [facility] [id number], [place] [address]46 Apr, [facility] [id number], [place] [address] Apr, [facility] [id number] [address] Mar, [facility] [id number], [place] [address] Mar, [facility] [id number] [address] Mar, [facility] [id number], [place] [address] Mar, Intractable chronic migraine without aura and without status migrainosus G43.719 [facility] [address] [place] [id number] Mar, Encounter for examination for admission to snf Z02.2 ; History of traumatic brain injury Z87.820 ; Recurrent major depressive disorder, in partial remission F33.41 ; Anxiety F41.9 ; Obsessive-compulsive disorder, unspecified type F42.9 ; Essential hypertension I10 and Type 2 diabetes mellitus with unspecified complications E11.8 [facility] [id number] [id number] Feb, [place] [id number], [place] [address] 10 Feb, 2017 Obsessive-compulsive disorder, unspecified type F42.9 ; Anxiety F41.9 and Recurrent major depressive disorder, in partial remission F33.41 [facility] [id number], [place] [address] 27 Jan, 2017 Traumatic brain injury, without LOC, initial encounter S06.9X0A ; Intractable chronic migraine without aura and without status migrainosus G43.719 ; Anxiety F41.9 and Recurrent major depressive disorder, in partial remission F33.41 [facility] [id number], [place] [address] 20 Jan, 2017 Intractable chronic migraine without aura and without status migrainosus G43.719 [facility] [id number], [place] [address] 19 Jan, 2017 History of traumatic brain injury Z87.820 ; Anxiety F41.9 and Recurrent major depressive disorder, in partial remission F33.41 [facility] [id number], [place] [address] 13 Jan, 2017 [facility] [address] [place] [address] 07 Jan, 2017 History of traumatic brain injury Z87.820 and Obsessive-compulsive disorder, unspecified type F42.9 [facility] [address] [place] [address] 41888- 2155 06 Jan, 2017 Traumatic brain injury, without LOC, initial encounter S06.9X0A ; Intractable chronic migraine without aura and without status migrainosus G43.719 ; Anxiety F41.9 and Recurrent major depressive disorder, in partial remission F33.41 [facility] [address] [place] [address] 70720- 9033 05 Jan, 2017 History of traumatic brain injury Z87.820 ; Obsessive- compulsive disorder, unspecified type F42.9 ; Anxiety F41.9 and Recurrent major depressive disorder, in partial remission F33.41 [facility] [id number] [address] Dec, [facility] [id number] [place] [id number] Dec, Intractable chronic migraine without aura and without status migrainosus G43.719 [facility] [address] [place] [address] Dec, Type 2 diabetes mellitus with unspecified complications E11.8 and Essential hypertension I10 [facility] [id number] [place] [address] 86719- 8552 Dec, Traumatic brain injury, without LOC, initial encounter S06.9X0A [facility] [address] [place] [address] 32721- 0941 16 Dec, 2016 Traumatic brain injury, without LOC, initial encounter S06.9X0A ; Intractable chronic migraine without aura and without status migrainosus G43.719 ; Anxiety F41.9 and Recurrent major depressive disorder, in partial remission F33.41 [place] [address], [place] [address] 3556 Dec, [place] [address] [place] [address] 45982- 4061 Dec, History of traumatic brain injury Z87.820 ; Obsessive- compulsive disorder, unspecified type F42.9 ; Anxiety F41.9 and Recurrent major depressive disorder, in partial remission F33.41 [place] [id number] [place] [address] 25521- 3729 09 Dec, 2016 Traumatic brain injury, without LOC, initial encounter S06.9X0A [place] [address] [place] [address] 70592- 0840 Dec, Anxiety F41.9 and Recurrent major depressive disorder, in partial remission F33.41 [place] [address] [place] [address] 30310- 4137 02 Dec, 2016 Traumatic brain injury, without LOC, initial encounter S06.9X0A ; Intractable chronic migraine without aura and without status migrainosus G43.719 ; Anxiety F41.9 and Recurrent major depressive disorder, in partial remission F33.41 [place] [id number] [place] [address] 73107- 4122 Dec, [facility] [id number] [place] [id number] Nov, Intractable chronic migraine without aura and without status migrainosus G43.719 [facility] [address] [place] [address] Nov, Obsessive-compulsive disorder, unspecified type F42.9 ; Anxiety F41.9 and Intractable chronic migraine without aura and without status migrainosus G43.719 [place] [address] [place] [address] 75281- 3225 Nov, Traumatic brain injury, without LOC, initial encounter S06.9X0A ; Intractable chronic migraine without aura and without status migrainosus G43.719 ; Anxiety F41.9 and Recurrent major depressive disorder, in partial remission F33.41 [facility] [address] [id number] [address] Nov, [facility] [address], [place] [address] 1089 Nov, Anxiety F41.9 and Recurrent major depressive disorder, in partial remission F33.41 [facility] [address], [place] [address]- [address]606 Nov, [facility] [id number] [place] [address] [id number] Nov, [facility] [address] [place] [address] 95830- 9355 Oct, [facility] [id number] [place] [address] 41125- 5065 Oct, Anxiety F41.9 and Recurrent major depressive disorder, in partial remission F33.41 [facility] [address], [place] [address] 5320 Oct, [facility] [address], [place] [address]- 1506 September, Anxiety F41.9 and Recurrent major depressive disorder, in partial remission F33.41 [facility] [address], [place] [address] 7208 September, Traumatic brain injury, without LOC, initial encounter S06.9X0A ; Intractable chronic migraine without aura and without status migrainosus G43.719 ; Anxiety F41.9 and Recurrent major depressive disorder, in partial remission F33.41 [facility] [address], [place] [address]26 September, [facility] [address], [place] [address]- 7969 September, Anxiety F41.9 [facility] [address], [place] [address] 3241 September, [facility] [id number] [address] September, Type 2 diabetes mellitus with unspecified complications E11.8 [facility] [address] [id number] [address] September, Type 2 diabetes mellitus with unspecified complications E11.8 [facility] [address] [place] [address] September, Essential hypertension I10 and History of traumatic brain injury Z87.820 [facility] [address], [place] [address]- 8936 Aug, [facility] [address] [place] [id number] Aug, Type 2 diabetes mellitus with unspecified complications E11.8 and Benign prostatic hyperplasia with lower urinary tract symptoms, unspecified morphology N40.1 [facility] [address] [id number] [address] Aug, [facility] [address], [place] [address]- 1246 Aug, [facility] [address] [place] [address] 25794958- 0270 Jul, Traumatic brain injury, without LOC, initial encounter S06.9X0A ; Intractable chronic migraine without aura and without status migrainosus G43.719 ; Anxiety F41.9 and Recurrent major depressive disorder, in partial remission F33.41 [facility] [address], [place] [address]- 7099 Jul, [facility] [address], [place] [address]- 0928 Jul, [facility] [id number] [place] [address] [id number] Jun, [facility] [address], [place] [address]- 1526 Jun, [facility] [id number] [place] [address] 36939- 5886 Jun, [facility] [address] [place] [id number] Jun, Encounter to establish care Z76.89 [facility] [address], [place] [address]- 4668 Jun, [facility] [address], [place] [address]- 7917 Jun, [facility] [address] 9166 Jun, [facility] [address], [place] [address]- 5289 Jun, [facility] [address] [place] [address] May, Dental examination Z01.20 [facility] [address] [place] [address] Dec, Dental examination Z01.20 [facility] [address] [place] [address] September, Dental examination Z01.20 [facility] [address] [place] [address] Dec, Dental examination V72.2 [facility] [address], [place] [address]- 7079 Aug, [facility] [address], [place] [address]- 8738 Aug, [facility] [address], [place] [address]- 5957 Apr, [facility] [address] 6852 Nov, [facility] [address]- 5593 Nov, [facility] [id number], [place] [address]- 8836 Nov, [facility] [address] [facility] [id number] [place] [address]- 1776 Nov, [facility] [address] [facility] [id number] [address]- 2446 Oct, [facility] [address] [facility] [id number], [place] [address]- 2546 May, [facility] [address] [facility] [id number], [place] [address]- 2546 May, IMMUNIZATIONS No Known Immunizations SOCIAL HISTORY Never Assessed REASON FOR VISIT Add colace PLAN OF CARE VITAL SIGNS MEDICATIONS Medication Instructions Dosage Frequency Start Date End Date Duration Status Colace 100 mg Orally twice a day 1 capsule 12h Oct, 30 day(s) Active RESULTS No Results PROCEDURES No Known procedures [...] elbow Hospitalization History left ankle Hospitalization History [facility] Hospitalization History [facility]- [place] ?-11/2017
--- OUTSIDE RECORDS SUMMARY | 2018-07-02 11:55 | XMS REPORT ---
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 Active 19304584 Problem History of traumatic brain injury Z87.820 Active 66947988657174 Problem Benign prostatic hyperplasia with lower urinary tract symptoms, unspecified morphology N40.1 Active 742372378 Problem Persistent migraine aura without cerebral infarction and without status migrainosus, not intractable G43.509 Active 827487219 Problem Type 2 diabetes mellitus with unspecified complications E11.8 Active 44395616 Problem Traumatic brain injury, without LOC, initial encounter S06.9X0A Active 592446038 Problem 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 Active 24412575 Problem Intractable chronic migraine without aura and without status migrainosus G43.719 Active 134470673 Problem Recurrent major depressive disorder, in partial remission F33.41 Active 48902190 Problem Obsessive-compulsive disorder, unspecified type F42.9 Active 519378229 Problem Glaucoma, unspecified glaucoma, unspecified laterality H40.9 Active 07614977 Problem Hyperlipidemia, unspecified hyperlipidemia type E78.5 Active 16771256 Problem Rad (reactive airway disease), mild intermittent, uncomplicated J45.20 Active 241307735696 Problem History of gout Z87.39 Active 176829558 Problem Herpes B00.9 Active 70917954 Problem Weak urinary stream R39.12 Active 00299782 Problem Gastroesophageal reflux disease without esophagitis K21.9 Active 082848813 Problem Anemia, unspecified type D64.9 Active 177147111 Problem Essential hypertension I10 Active 87113125 ALLERGIES No Information ENCOUNTERS Encounter Location Date Diagnosis [facility] [address] [place] [address] 30 Dec, 2017 [facility] [address] [place] [address] 16 Dec, 2017 Anxiety F41.9 ; Traumatic brain injury, without LOC, initial encounter S06.9X0A ; Intractable chronic migraine without aura and without status migrainosus G43.719 ; Recurrent major depressive disorder, in partial remission F33.41 and 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 [facility] [id number] [place] [address]114[address] 22 Oct, 2017 [facility] [address] [place] [id number] Oct, Excessive anger R45.4 and Obsessive-compulsive disorder, unspecified type F42.9 [facility] [id number] [place] [address]33- 9353 20 Oct, 2017 Anxiety F41.9 ; Traumatic brain injury, without LOC, initial encounter S06.9X0A ; Intractable chronic migraine without aura and without status migrainosus G43.719 and Recurrent major depressive disorder, in partial remission F33.41 [place] [id number] [place] [address] 36335- 4993 12 Oct, 2017 [facility] [id number] [place] [address] 36547- 8450 05 Oct, 2017 [place] [id number] [place] [address] 12992- 4177 04 Oct, 2017 [place] [id number] [place] [address] 46836- 0469 September, Anxiety F41.9 ; Traumatic brain injury, without LOC, initial encounter S06.9X0A ; Intractable chronic migraine without aura and without status migrainosus G43.719 and Recurrent major depressive disorder, in partial remission F33.41 [facility] [address] [place] [id number] September, Weight gain R63.5 and Type 2 diabetes mellitus with unspecified complications E11.8 [facility] [id number] [address] September, [facility] [address] [address] Aug, [facility] [address] [facility] [place] [address] Aug, [facility] [id number] [place] [address] 24737- 2895 Aug, [facility] [address] [place] [address] 01638- 0559 Jul, Intractable chronic migraine without aura and without status migrainosus G43.719 [facility] [address], [place] [address] Jul, Intractable chronic migraine without aura and without status migrainosus G43.719 [facility] [address] [place] [id number] Jul, History of traumatic brain injury Z87.820 ; Recurrent major depressive disorder, in partial remission F33.41 and Type 2 diabetes mellitus with unspecified complications E11.8 [facility] [id number] [place] [address] [id number] Jul, [facility] [id number] [place] [id number] Jul, Intractable chronic migraine without aura and without status migrainosus G43.719 [facility] [id number] [address]690 Jun, Anxiety F41.9 ; Traumatic brain injury, without LOC, initial encounter S06.9X0A ; Intractable chronic migraine without aura and without status migrainosus G43.719 and Recurrent major depressive disorder, in partial remission F33.41 [facility] [id number] [id number] 13 Jun, 2017 [facility] [id number] [address]6 Jun, [facility] [address] [id number] [id number] Jun, Intractable chronic migraine without aura and without status migrainosus G43.719 [facility] [id number] [address] May, [facility] [address] [place] [id number] May, Recurrent major depressive disorder, in partial remission F33.41 ; Traumatic brain injury, without LOC, initial encounter S06.9X0A and Anxiety F41.9 [facility] [id number] [address] May, [facility] [id number] [id number] May, [facility] [id number] [address] May, Intractable chronic migraine without aura and without status migrainosus G43.719 [facility] [id number] [address]17 Apr, Anxiety F41.9 ; Traumatic brain injury, without LOC, initial encounter S06.9X0A ; Intractable chronic migraine without aura and without status migrainosus G43.719 and Recurrent major depressive disorder, in partial remission F33.41 [facility] [id number] [address] Apr, [facility] [address] [id number] [id number] Apr, Intractable chronic migraine without aura and without status migrainosus G43.719 [facility] [id number], [place] [address] 3476 Apr, [facility] [id number], [place] [address] 8026 Apr, [facility] [id number] [id number] Mar, [facility] [id number], [place] [address] 4126 Mar, [facility] [id number] [id number] Mar, [facility] [id number], [place] [address]76 Mar, Intractable chronic migraine without aura and without status migrainosus G43.719 [facility] [address] [place] [id number] Mar, Encounter for examination for admission to correction Z02.2 ; History of traumatic brain injury Z87.820 ; Recurrent major depressive disorder, in partial remission F33.41 ; Anxiety F41.9 ; Obsessive-compulsive disorder, unspecified type F42.9 ; Essential hypertension I10 and Type 2 diabetes mellitus with unspecified complications E11.8 [facility] [id number] [id number] Feb, [facility] [id number], [place] [address] 10 Feb, 2017 Obsessive-compulsive disorder, unspecified type F42.9 ; Anxiety F41.9 and Recurrent major depressive disorder, in partial remission F33.41 [facility] [id number] [address] 27 Jan, 2017 Traumatic brain injury, without LOC, initial encounter S06.9X0A ; Intractable chronic migraine without aura and without status migrainosus G43.719 ; Anxiety F41.9 and Recurrent major depressive disorder, in partial remission F33.41 [facility] [id number], [place] [address]9 20 Jan, 2017 Intractable chronic migraine without aura and without status migrainosus G43.719 [facility] [id number] [address] 19 Jan, 2017 History of traumatic brain injury Z87.820 ; Anxiety F41.9 and Recurrent major depressive disorder, in partial remission F33.41 [facility] [id number], [place] [address] 4716 13 Jan, 2017 [facility] [address] [place] [id number] 07 Jan, 2017 History of traumatic brain injury Z87.820 and Obsessive-compulsive disorder, unspecified type F42.9 [facility] [address] [place] [address] 95325- 2387 06 Jan, 2017 Traumatic brain injury, without LOC, initial encounter S06.9X0A ; Intractable chronic migraine without aura and without status migrainosus G43.719 ; Anxiety F41.9 and Recurrent major depressive disorder, in partial remission F33.41 [facility] [address], [place] [address] 12[address] 05 Jan, 2017 History of traumatic brain injury Z87.820 ; Obsessive- compulsive disorder, unspecified type F42.9 ; Anxiety F41.9 and Recurrent major depressive disorder, in partial remission F33.41 [facility] [id number] [id number] Dec, [facility] [id number] [place] [id number] Dec, Intractable chronic migraine without aura and without status migrainosus G43.719 [facility] [address] [place] [id number] Dec, Type 2 diabetes mellitus with unspecified complications E11.8 and Essential hypertension I10 [facility] [id number] [place] [address] 08173- 5594 Dec, Traumatic brain injury, without LOC, initial encounter S06.9X0A [facility] [address] [place] [address] 68479- 6839 16 Dec, 2016 Traumatic brain injury, without LOC, initial encounter S06.9X0A ; Intractable chronic migraine without aura and without status migrainosus G43.719 ; Anxiety F41.9 and Recurrent major depressive disorder, in partial remission F33.41 [facility] [address] [address]- 1716 Dec, [facility] [address] [place] [address] 99879- 6170 Dec, History of traumatic brain injury Z87.820 ; Obsessive- compulsive disorder, unspecified type F42.9 ; Anxiety F41.9 and Recurrent major depressive disorder, in partial remission F33.41 [facility] [id number] [place] [address] 57331- 8129 09 Dec, 2016 Traumatic brain injury, without LOC, initial encounter S06.9X0A [place] [address] [place] [address] 94625- 5256 03 Dec, 2016 Anxiety F41.9 and Recurrent major depressive disorder, in partial remission F33.41 [place] [address], [place] [address]- 6131 02 Dec, 2016 Traumatic brain injury, without LOC, initial encounter S06.9X0A ; Intractable chronic migraine without aura and without status migrainosus G43.719 ; Anxiety F41.9 and Recurrent major depressive disorder, in partial remission F33.41 [place] [address], [place] [address]- 5483 Dec, [facility] [id number] [place] [id number] Nov, Intractable chronic migraine without aura and without status migrainosus G43.719 [facility] [address] [place] [id number] Nov, Obsessive-compulsive disorder, unspecified type F42.9 ; Anxiety F41.9 and Intractable chronic migraine without aura and without status migrainosus G43.719 [place] [address] [place] [address] 01454- 6801 Nov, Traumatic brain injury, without LOC, initial encounter S06.9X0A ; Intractable chronic migraine without aura and without status migrainosus G43.719 ; Anxiety F41.9 and Recurrent major depressive disorder, in partial remission F33.41 [facility] [address] [id number] [id number] Nov, [facility] [address], [place] [address] Nov, Anxiety F41.9 and Recurrent major depressive disorder, in partial remission F33.41 [facility] [address], [place] [address]- 7916 Nov, [facility] [id number] [place] [address] [id number] Nov, [facility] [id number] [place] [address] 51509- 0458 Oct, [facility] [id number] [place] [address] 14734- 8228 Oct, Anxiety F41.9 and Recurrent major depressive disorder, in partial remission F33.41 [facility] [address], [place] [address]- 0210 Oct, [facility] [id number], [place] [address]- 3707 September, Anxiety F41.9 and Recurrent major depressive disorder, in partial remission F33.41 [facility] [id number], [place] [address]- 4104 September, Traumatic brain injury, without LOC, initial encounter S06.9X0A ; Intractable chronic migraine without aura and without status migrainosus G43.719 ; Anxiety F41.9 and Recurrent major depressive disorder, in partial remission F33.41 [facility] [id number], [place] [address]- 4726 September, [facility] [id number], [place] [address]- 4806 September, Anxiety F41.9 [facility] [id number], [place] [address]- 7000 September, [facility] [id number], [place] [id number] September, Type 2 diabetes mellitus with unspecified complications E11.8 [facility] [id number], [place] [id number] September, Type 2 diabetes mellitus with unspecified complications E11.8 [facility] [address] [place] [id number] September, Essential hypertension I10 and History of traumatic brain injury Z87.820 [facility] [address], [place] [address]- 9026 Aug, [facility] [address] [place] [id number] Aug, Type 2 diabetes mellitus with unspecified complications E11.8 and Benign prostatic hyperplasia with lower urinary tract symptoms, unspecified morphology N40.1 [facility] [id number], [place] [id number] Aug, [facility] [address], [place] [address]- 3376 Aug, [facility] [address] [place] [address] 23532098- 5782 Jul, Traumatic brain injury, without LOC, initial encounter S06.9X0A ; Intractable chronic migraine without aura and without status migrainosus G43.719 ; Anxiety F41.9 and Recurrent major depressive disorder, in partial remission F33.41 [facility] [address], [place] [address]- 5686 Jul, [facility] [address], [place] [address]- 0752 Jul, [facility] [id number] [place] [address] [id number] Jun, [facility] [address] [address]- 7747 Jun, [facility] [address] [place] [address] 03138- 8872 Jun, [facility] [address] [place] [id number] Jun, Encounter to establish care Z76.89 [facility] [address] [address]- 4388 Jun, [facility] [address], [place] [address]- 8493 Jun, [facility] [address] [address]- 7564 Jun, [facility] [address] [address]309 Jun, [facility] [address] [place] [address] May, Dental examination Z01.20 [facility] [address] [place] [address] Dec, Dental examination Z01.20 [facility] [address] [place] [address] September, Dental examination Z01.20 [facility] [address] [place] [address] Dec, Dental examination V72.2 [facility] [address], [place] [address]- 8003 Aug, [facility] [address], [place] [address]- 5741 Aug, [facility] [address], [place] [address]- 4774 Apr, [facility] [address] 2716 Nov, [facility] [address]- 0510 Nov, [facility] [address], [place] [address]- 9328 Nov, [facility] [address] [facility] [id number] [address]- 1451 Nov, [facility] [address] [facility] [id number], [place] [address]05 Oct, [facility] [address] [facility] [id number], [place] [address]- 5448 May, [facility] [address] [facility] [id number], [place] [address]- 3[address] May, IMMUNIZATIONS No Known Immunizations SOCIAL HISTORY Never Assessed REASON FOR VISIT BH f/u WB-BERT PLAN OF CARE Activity Details Follow Up 4 Weeks Reason: VITAL SIGNS Height 72.0 in 2017-10-13 Weight 227 lbs 2017-10-13 Heart Rate 98 bpm 2017-10-13 Respiratory Rate 18 2017-10-13 BMI 30.78 kg/m2 2017-10-13 Blood pressure systolic 138 mmHg 2017-10-13 Blood pressure diastolic 86 mmHg 2017-10-13 MEDICATIONS Medication Instructions Dosage Frequency Start Date End Date Duration Status Trazodone HCl 150 MG Orally Once a day 1 tablet at bedtime 24h 30 days Active Latanoprost 0.005 % Ophthalmic Once a day 1 drop into affected eye in the evening 24h Active Saline Nasal Ibapah 0.65 % Nasally every 2 hrs 2 sprays in each nostril as needed Active Fluvoxamine Maleate 25 MG Orally Twice a day 1 tablet (give with 100mg tablet) 12h 30 day(s) Active Effexor XR 75 MG Orally Once a day 1 capsule with food 24h 30 days Active Latuda 60 mg Orally Once a day 1 tablet with food 24h 30 days Active Clonazepam 1 MG Orally 3 times a day 1 tablet 8h 28 days Active Zyprexa 2.5 MG Orally twice a day 1 tablet 12h Active MiraLax 17 gm/dose Orally every 12 hrs as needed 17 grams mixed in 8 oz of water or juice Active Exelon 4.6 MG/24HR Transdermal Once a day 1 patch to skin 24h Active MetFORMIN HCl ER 500 mg Orally twice a day then in 4 days increase to 1 tab in AM and 2 in PM and in 4 days increase to 2 tabs bid 1 tablet May, Active Allopurinol 300 MG Orally Once a day 1 tablet 24h Active Zyprexa 2.5 MG Orally Once a day 1 tablet 24h 30 day(s) Active Topamax 25 MG Orally Twice a day 1 tablet 12h 30 day(s) Active Depakote Sprinkles 125 MG Orally 3 times a day 4 capsules 8h 30 days Active Dulaglutide 0.75 MG/0.5ML Subcutaneous once weekly as directed September, Active Vitamin D 2000 UNIT Orally Once a day 1 tablet 24h Active Timolol Maleate 0.5 % Ophthalmic twice a day 1 drop into danielle eyes 12h Active Fluvoxamine Maleate 100 mg Orally Twice a day 1 tablet 12h 30 day(s) Active Urecholine 25 MG Orally 3 times a day 1 tablet 8h Active Lotrisone 1-0.05 % Externally Twice a day prn 1 application to affected area Not-Taking Melatonin 3 MG Orally Once a day 3 tablets at bedtime 24h Active Flomax 0.4 MG Orally Once a day 2 capsules 24h Active Lactulose 20 GM/30ML Orally twice a day 30 ml 12h Active Verapamil HCl ER 180 MG Orally twice a day 1 tablet 12h Active Amaryl 5 mg Orally Once a day 1 tablet with breakfast or the first main meal of the day 24h Jun, Active RESULTS No Results PROCEDURES Procedure Date Ordered Result Body Site [facility] ESTABLISHED PATIENT October 13, 2017 INSTRUCTIONS MEDICATIONS ADMINISTERED No Known Medications MEDICAL (GENERAL) HISTORY Type Description Date Medical History History of traumatic brain injury Subdural hematoma from falling out of bed 2012 Medical History Type 2 diabetes mellitus with unspecified complications 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
--- OUTSIDE RECORDS SUMMARY | 2018-07-02 11:55 | XMS REPORT ---
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 Active 22313636 Problem History of traumatic brain injury Z87.820 Active 07894857531925 Problem Benign prostatic hyperplasia with lower urinary tract symptoms, unspecified morphology N40.1 Active 654119734 Problem Persistent migraine aura without cerebral infarction and without status migrainosus, not intractable G43.509 Active 586666219 Problem Type 2 diabetes mellitus with unspecified complications E11.8 Active 15334847 Problem Traumatic brain injury, without LOC, initial encounter S06.9X0A Active 756468144 Problem 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 Active 83331496 Problem Intractable chronic migraine without aura and without status migrainosus G43.719 Active 806618293 Problem Recurrent major depressive disorder, in partial remission F33.41 Active 31953279 Problem Obsessive-compulsive disorder, unspecified type F42.9 Active 291635211 Problem Glaucoma, unspecified glaucoma, unspecified laterality H40.9 Active 42017032 Problem Hyperlipidemia, unspecified hyperlipidemia type E78.5 Active 69869959 Problem Rad (reactive airway disease), mild intermittent, uncomplicated J45.20 Active 599113041369 Problem History of gout Z87.39 Active 274900211 Problem Herpes B00.9 Active 99474590 Problem Weak urinary stream R39.12 Active 58126672 Problem Gastroesophageal reflux disease without esophagitis K21.9 Active 610687312 Problem Anemia, unspecified type D64.9 Active 902948015 Problem Essential hypertension I10 Active 00376938 ALLERGIES No Information ENCOUNTERS Encounter Location Date Diagnosis [facility] [address] [place] [address] Dec, [facility] [address] [place] [address] 16 Dec, 2017 Anxiety F41.9 ; Traumatic brain injury, without LOC, initial encounter S06.9X0A ; Intractable chronic migraine without aura and without status migrainosus G43.719 ; Recurrent major depressive disorder, in partial remission F33.41 and 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 [place] [id number] [place] [address] 22 Oct, 2017 [facility] [address] [place] [id number] Oct, Excessive anger R45.4 and Obsessive-compulsive disorder, unspecified type F42.9 [place] [id number] [place] [address] 0739 Oct, Anxiety F41.9 ; Traumatic brain injury, without LOC, initial encounter S06.9X0A ; Intractable chronic migraine without aura and without status migrainosus G43.719 and Recurrent major depressive disorder, in partial remission F33.41 [place] [id number] [place] [address]254- 2643 12 Oct, 2017 [facility] [id number], [place] [address] 05 Oct, 2017 [place] [id number] [place] [address]99[address] 8444 Oct, [place] [id number] [place] [address] 4911 September, Anxiety F41.9 ; Traumatic brain injury, without LOC, initial encounter S06.9X0A ; Intractable chronic migraine without aura and without status migrainosus G43.719 and Recurrent major depressive disorder, in partial remission F33.41 [facility] [address] [place] [id number] September, Weight gain R63.5 and Type 2 diabetes mellitus with unspecified complications E11.8 [facility] [id number] [address] September, [facility] [address] [address] Aug, [facility] [address] [place] [address] Aug, [facility] [id number] [place] [address]1658- 4408 Aug, [facility] [address] [place] [address]698[address] 5652 Jul, Intractable chronic migraine without aura and without status migrainosus G43.719 [facility] [address], [place] [address] Jul, Intractable chronic migraine without aura and without status migrainosus G43.719 [facility] [address] [place] [id number] Jul, History of traumatic brain injury Z87.820 ; Recurrent major depressive disorder, in partial remission F33.41 and Type 2 diabetes mellitus with unspecified complications E11.8 [facility] [id number] [id number] Jul, [facility] [id number] [place] [id number] Jul, Intractable chronic migraine without aura and without status migrainosus G43.719 [facility] [id number] [address] Jun, Anxiety F41.9 ; Traumatic brain injury, without LOC, initial encounter S06.9X0A ; Intractable chronic migraine without aura and without status migrainosus G43.719 and Recurrent major depressive disorder, in partial remission F33.41 [facility] [id number] [id number] Jun, [facility] [address] [address] Jun, [facility] [address] [id number] [id number] Jun, Intractable chronic migraine without aura and without status migrainosus G43.719 [facility] [address] [facility] [id number], [place] [address] May, [facility] [address] [place] [id number] May, Recurrent major depressive disorder, in partial remission F33.41 ; Traumatic brain injury, without LOC, initial encounter S06.9X0A and Anxiety F41.9 [facility] [id number], [place] [address] May, [facility] [address] [id number] [id number] May, [facility] [id number] [address] May, Intractable chronic migraine without aura and without status migrainosus G43.719 [facility] [id number], [place] [address] Apr, Anxiety F41.9 ; Traumatic brain injury, without LOC, initial encounter S06.9X0A ; Intractable chronic migraine without aura and without status migrainosus G43.719 and Recurrent major depressive disorder, in partial remission F33.41 [facility] [id number], [place] [address] Apr, [facility] [address] [id number] [id number] Apr, Intractable chronic migraine without aura and without status migrainosus G43.719 [facility] [id number], [place] [address]46 Apr, [facility] [id number], [place] [address] Apr, [facility] [id number] [id number] Mar, [facility] [id number], [place] [address] Mar, [facility] [id number] [address] Mar, [facility] [id number], [place] [address] Mar, Intractable chronic migraine without aura and without status migrainosus G43.719 [facility] [address] [place] [id number] Mar, Encounter for examination for admission to care home Z02.2 ; History of traumatic brain injury Z87.820 ; Recurrent major depressive disorder, in partial remission F33.41 ; Anxiety F41.9 ; Obsessive-compulsive disorder, unspecified type F42.9 ; Essential hypertension I10 and Type 2 diabetes mellitus with unspecified complications E11.8 [facility] [id number], [place] [address] Feb, [facility] [id number], [place] [address] 10 Feb, 2017 Obsessive-compulsive disorder, unspecified type F42.9 ; Anxiety F41.9 and Recurrent major depressive disorder, in partial remission F33.41 [facility] [id number], [place] [address] 27 Jan, 2017 Traumatic brain injury, without LOC, initial encounter S06.9X0A ; Intractable chronic migraine without aura and without status migrainosus G43.719 ; Anxiety F41.9 and Recurrent major depressive disorder, in partial remission F33.41 [facility] [id number], [place] [address] 20 Jan, 2017 Intractable chronic migraine without aura and without status migrainosus G43.719 [facility] [id number], [place] [address] 19 Jan, 2017 History of traumatic brain injury Z87.820 ; Anxiety F41.9 and Recurrent major depressive disorder, in partial remission F33.41 [facility] [id number], [place] [address]37 13 Jan, 2017 [facility] [address] [place] [id number] 07 Jan, 2017 History of traumatic brain injury Z87.820 and Obsessive-compulsive disorder, unspecified type F42.9 [facility] [address] [place] [address] 40785- 6377 06 Jan, 2017 Traumatic brain injury, without LOC, initial encounter S06.9X0A ; Intractable chronic migraine without aura and without status migrainosus G43.719 ; Anxiety F41.9 and Recurrent major depressive disorder, in partial remission F33.41 [facility] [address] [place] [address] 11630- 0700 05 Jan, 2017 History of traumatic brain injury Z87.820 ; Obsessive- compulsive disorder, unspecified type F42.9 ; Anxiety F41.9 and Recurrent major depressive disorder, in partial remission F33.41 [facility] [id number], [place] [address] Dec, [facility] [id number] [place] [address] [id number] Dec, Intractable chronic migraine without aura and without status migrainosus G43.719 [facility] [address] [place] [address] Dec, Type 2 diabetes mellitus with unspecified complications E11.8 and Essential hypertension I10 [facility] [id number] [place] [address] 38026- 4409 Dec, Traumatic brain injury, without LOC, initial encounter S06.9X0A [facility] [address] [place] [address] 66758- 9513 16 Dec, 2016 Traumatic brain injury, without LOC, initial encounter S06.9X0A ; Intractable chronic migraine without aura and without status migrainosus G43.719 ; Anxiety F41.9 and Recurrent major depressive disorder, in partial remission F33.41 [place] [address], [place] [address] Dec, [place] [id number] [place] [address] 36653- 0933 Dec, History of traumatic brain injury Z87.820 ; Obsessive- compulsive disorder, unspecified type F42.9 ; Anxiety F41.9 and Recurrent major depressive disorder, in partial remission F33.41 [place] [id number] [place] [address] 23568- 7524 09 Dec, 2016 Traumatic brain injury, without LOC, initial encounter S06.9X0A [facility] [address] [place] [address] 73975- 9605 Dec, Anxiety F41.9 and Recurrent major depressive disorder, in partial remission F33.41 [place] [address] [place] [address] 44919- 5813 02 Dec, 2016 Traumatic brain injury, without LOC, initial encounter S06.9X0A ; Intractable chronic migraine without aura and without status migrainosus G43.719 ; Anxiety F41.9 and Recurrent major depressive disorder, in partial remission F33.41 [place] [id number] [place] [address] 48086- 8911 Dec, [facility] [id number] [place] [address] [id number] Nov, Intractable chronic migraine without aura and without status migrainosus G43.719 [facility] [address] [place] [id number] Nov, Obsessive-compulsive disorder, unspecified type F42.9 ; Anxiety F41.9 and Intractable chronic migraine without aura and without status migrainosus G43.719 [place] [id number] [place] [address] 35046- 6719 Nov, Traumatic brain injury, without LOC, initial encounter S06.9X0A ; Intractable chronic migraine without aura and without status migrainosus G43.719 ; Anxiety F41.9 and Recurrent major depressive disorder, in partial remission F33.41 [facility] [place] [address] [id number] [id number] Nov, [facility] [address]00565[address], [place] [address]14 Nov, Anxiety F41.9 and Recurrent major depressive disorder, in partial remission F33.41 [facility] [address]65100[place], [place] [address] Nov, [facility] [place] [id number] [place] [address] [id number] Nov, [facility] [id number] [place] [address] 70255- 4366 Oct, [facility] [id number] [place] [address] 53825- 3714 Oct, Anxiety F41.9 and Recurrent major depressive disorder, in partial remission F33.41 [facility] [address]65[address], [place] [address] 5649 Oct, [facility] [address]65[address], [place] [address]- 1296 September, Anxiety F41.9 and Recurrent major depressive disorder, in partial remission F33.41 [facility] [address]65100[place], [place] [address] 7679 September, Traumatic brain injury, without LOC, initial encounter S06.9X0A ; Intractable chronic migraine without aura and without status migrainosus G43.719 ; Anxiety F41.9 and Recurrent major depressive disorder, in partial remission F33.41 [facility] [address]00565[address], [place] [address] 1056 September, [facility] [address], [place] [address]- 0726 September, Anxiety F41.9 [facility] [address]65[address], [place] [address] September, [facility] [id number] [id number] September, Type 2 diabetes mellitus with unspecified complications E11.8 [facility] [address] [id number] [address] September, Type 2 diabetes mellitus with unspecified complications E11.8 [facility] [address] [place] [address] September, Essential hypertension I10 and History of traumatic brain injury Z87.820 [facility] [address]00565100[place], [place] [address]- 8376 Aug, [facility] [address] [place] [address] Aug, Type 2 diabetes mellitus with unspecified complications E11.8 and Benign prostatic hyperplasia with lower urinary tract symptoms, unspecified morphology N40.1 [facility] [address] [id number] [id number] Aug, [facility] [address]65[address], [place] [address]- 4646 Aug, [facility] [address] [place] [address] 65403783- 3432 Jul, Traumatic brain injury, without LOC, initial encounter S06.9X0A ; Intractable chronic migraine without aura and without status migrainosus G43.719 ; Anxiety F41.9 and Recurrent major depressive disorder, in partial remission F33.41 [facility] [address]65[address], [place] [address]- 3182 Jul, [facility] [address], [place] [address] 5923 Jul, [facility] [id number] [place] [address] [id number] Jun, [facility] [address]65100[place], [place] [address]- 8136 Jun, [facility] [id number] [place] [address] 19314- 3478 Jun, [facility] [address] [place] [id number] Jun, Encounter to establish care Z76.89 [facility] [address], [place] [address]- 6922 Jun, [facility] [address]65100[place], [place] [address]- 4723 Jun, [facility] [address] 0840 Jun, [facility] [address]65[address], [place] [address]- 0195 Jun, [facility] [address] [place] [address] May, Dental examination Z01.20 [facility] [address] [place] [address] Dec, Dental examination Z01.20 [facility] [address] [place] [address] September, Dental examination Z01.20 [facility] [address] [place] [address] Dec, Dental examination V72.2 [facility] [address]65100[place], [place] [address]- 7990 Aug, [facility] [address]65[address], [place] [address]- 6831 Aug, [facility] [address]65[address], [place] [address]- 1140 Apr, [facility] [address] [address]261 Nov, [facility] [address], [place] 3432 Nov, [facility] [id number], [place] [address]- 6522 Nov, [facility] [address] [facility] [id number] [place] [address]- 1496 Nov, [facility] [address] [facility] [id number], [place] [address]- 9117 Oct, [facility] [address] [facility] [id number], [place] [address]- 6596 May, [facility] [address] [facility] [id number], [place] [address] 4076 May, IMMUNIZATIONS No Known Immunizations SOCIAL HISTORY Never Assessed REASON FOR VISIT Pt has personal concerns. 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
--- OUTSIDE RECORDS SUMMARY | 2018-07-02 11:56 | XMS REPORT ---
Author Author NICK FONSECA Organization [facility] Address [address] [place] [address] Care Team Providers Care Sausage Linker Name Role Phone NICK FONSECA Unavailable PROBLEMS Type Condition ICD9-CM Code XFT07-UY Code Onset Dates Condition Status SNOMED Code Problem Essential hypertension I10 Active 89881433 Problem alf current use of insulin Z79.4 Active 280195767 Problem Anxiety F41.9 Active 97531766 Problem Benign prostatic hyperplasia with lower urinary tract symptoms, unspecified morphology N40.1 Active 342403822 Problem Persistent migraine aura without cerebral infarction and without status migrainosus, not intractable G43.509 Active 089942365 Problem Intractable chronic migraine without aura and without status migrainosus G43.719 Active 444187486 Problem Type 2 diabetes mellitus with unspecified complications E11.8 Active 89227110 Problem 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 Active 02487029 Problem Chronic pain due to trauma G89.21 Active 484019492 Problem Recurrent major depressive disorder, in partial remission F33.41 Active 31109922 Problem Traumatic brain injury, without LOC, initial encounter S06.9X0A Active 231450825 Problem Rad (reactive airway disease), mild intermittent, uncomplicated J45.20 Active 479336735301 Problem Obsessive-compulsive disorder, unspecified type F42.9 Active 899159667 Problem History of traumatic brain injury Z87.820 Active 89245046541090 Problem Hyperlipidemia, unspecified hyperlipidemia type E78.5 Active 86367583 Problem Anemia, unspecified type D64.9 Active 676434668 Problem History of gout Z87.39 Active 850367128 Problem Glaucoma, unspecified glaucoma, unspecified laterality H40.9 Active 34017524 Problem Herpes B00.9 Active 52734362 Problem Weak urinary stream R39.12 Active 61286262 Problem Gastroesophageal reflux disease without esophagitis K21.9 Active 031182611 ALLERGIES No Information ENCOUNTERS Encounter Location Date Diagnosis [place] [id number] [place] [address]97[address] Dec, [place] [address] [address] Oct, [facility] [address] [place] [id number] Oct, Excessive anger R45.4 and Obsessive-compulsive disorder, unspecified type F42.9 [place] [address] [place] [id number] [place] [address] 25994- 9236 Oct, Anxiety F41.9 ; Traumatic brain injury, without LOC, initial encounter S06.9X0A ; Intractable chronic migraine without aura and without status migrainosus G43.719 and Recurrent major depressive disorder, in partial remission F33.41 [place] [address] [place] [id number] [place] [address] 15533- 3647 12 Oct, 2017 [place] [address] [place] [id number] [place] [address] 17303- 1810 05 Oct, 2017 [place] [address] [place] [id number] [place] [address] 90620- 3349 04 Oct, 2017 [place] [address] [place] [id number] [place] [address] 45920- 0985 September, Anxiety F41.9 ; Traumatic brain injury, without LOC, initial encounter S06.9X0A ; Intractable chronic migraine without aura and without status migrainosus G43.719 and Recurrent major depressive disorder, in partial remission F33.41 [facility] [address] [place] [id number] September, Weight gain R63.5 and Type 2 diabetes mellitus with unspecified complications E11.8 [place] [address] [address] September, [place] [address] [place] [id number] [place] [address] 76764- 2360 Aug, [facility] [address] [place] [address] Aug, [facility] [address] [place] [id number], [place] [address] Aug, [facility] [address], [place] [address] Jul, Intractable chronic migraine without aura and without status migrainosus G43.719 [facility] [address] [place] [id number] [address] Jul, Intractable chronic migraine without aura and without status migrainosus G43.719 [facility] [address] [place] [id number] Jul, History of traumatic brain injury Z87.820 ; Recurrent major depressive disorder, in partial remission F33.41 and Type 2 diabetes mellitus with unspecified complications E11.8 [facility] [id number] [id number] Jul, [facility] [address] [place] [id number] [place] [id number] Jul, Intractable chronic migraine without aura and without status migrainosus G43.719 [facility] [address] [place] [id number] [address] Jun, Anxiety F41.9 ; Traumatic brain injury, without LOC, initial encounter S06.9X0A ; Intractable chronic migraine without aura and without status migrainosus G43.719 and Recurrent major depressive disorder, in partial remission F33.41 [facility] [id number] [id number] Jun, [facility] [address] [place] [id number], [place] [address] Jun, [facility] [address] [id number] [address] Jun, Intractable chronic migraine without aura and without status migrainosus G43.719 [facility] [address] [place] [id number], [place] [address] May, [facility] [address] [place] [id number] May, Recurrent major depressive disorder, in partial remission F33.41 ; Traumatic brain injury, without LOC, initial encounter S06.9X0A and Anxiety F41.9 [facility] [address] [id number], [place] [address] May, [facility] [address] [id number] [id number] May, [facility] [address] [place] [id number] [address] May, Intractable chronic migraine without aura and without status migrainosus G43.719 [facility] [address] [facility] [id number] [address] Apr, Anxiety F41.9 ; Traumatic brain injury, without LOC, initial encounter S06.9X0A ; Intractable chronic migraine without aura and without status migrainosus G43.719 and Recurrent major depressive disorder, in partial remission F33.41 [facility] [address] [id number], [place] [address] Apr, [facility] [address] [place] [id number] [place] [id number] Apr, Intractable chronic migraine without aura and without status migrainosus G43.719 [facility] [address] [place] [id number], [place] [address] Apr, [facility] [address] [place] [id number] [address] [address] Apr, [facility] [address] [id number] [address] Mar, [facility] [address] [place] [id number] [address] Mar, [facility] [address] [place] [id number] [id number] Mar, [facility] [address] [place] [address] 31695- 7924 14 Mar, 2017 Intractable chronic migraine without aura and without status migrainosus G43.719 [facility] [address] [place] [id number] Mar, Encounter for examination for admission to usp Z02.2 ; History of traumatic brain injury Z87.820 ; Recurrent major depressive disorder, in partial remission F33.41 ; Anxiety F41.9 ; Obsessive-compulsive disorder, unspecified type F42.9 ; Essential hypertension I10 and Type 2 diabetes mellitus with unspecified complications E11.8 [facility] [address] [place] [id number] [place] [id number] Feb, [place] [address] [place] [id number] [place] [address] 47322- 6691 Feb, Obsessive-compulsive disorder, unspecified type F42.9 ; Anxiety F41.9 and Recurrent major depressive disorder, in partial remission F33.41 [place] [address] [place] [id number] [place] [address] 6[address]- 7033 27 Jan, 2017 Traumatic brain injury, without LOC, initial encounter S06.9X0A ; Intractable chronic migraine without aura and without status migrainosus G43.719 ; Anxiety F41.9 and Recurrent major depressive disorder, in partial remission F33.41 [place] [address] [place] [address] 97873- 6384 20 Jan, 2017 Intractable chronic migraine without aura and without status migrainosus G43.719 [facility] [address] [place] [address] 03040- 0324 19 Jan, 2017 History of traumatic brain injury Z87.820 ; Anxiety F41.9 and Recurrent major depressive disorder, in partial remission F33.41 [facility] [address] [place] [address] 29628- 8296 13 Jan, 2017 [facility] [address] [place] [id number] 07 Jan, 2017 History of traumatic brain injury Z87.820 and Obsessive-compulsive disorder, unspecified type F42.9 [place] [address] [id number], [place] [address] 06 Jan, 2017 Traumatic brain injury, without LOC, initial encounter S06.9X0A ; Intractable chronic migraine without aura and without status migrainosus G43.719 ; Anxiety F41.9 and Recurrent major depressive disorder, in partial remission F33.41 [facility] [address], [place] [address]- [address] 05 Jan, 2017 History of traumatic brain injury Z87.820 ; Obsessive- compulsive disorder, unspecified type F42.9 ; Anxiety F41.9 and Recurrent major depressive disorder, in partial remission F33.41 [facility] [address] [place] [id number] [place] [id number] 31 Dec, 2016 [facility] [address] [place] [id number] [place] [address] [id number] 28 Dec, 2016 Intractable chronic migraine without aura and without status migrainosus G43.719 [facility] [address] [place] [address] Dec, Type 2 diabetes mellitus with unspecified complications E11.8 and Essential hypertension I10 [facility] [address], [place] [address]- 89[address] 18 Dec, 2016 Traumatic brain injury, without LOC, initial encounter S06.9X0A [facility] [address] [place] [id number], [place] [address]- [address] 16 Dec, 2016 Traumatic brain injury, without LOC, initial encounter S06.9X0A ; Intractable chronic migraine without aura and without status migrainosus G43.719 ; Anxiety F41.9 and Recurrent major depressive disorder, in partial remission F33.41 [facility] [address], [place] [address]- 6658 15 Dec, 2016 [facility] [address] [place] [address] 48450- 0498 11 Dec, 2016 History of traumatic brain injury Z87.820 ; Obsessive- compulsive disorder, unspecified type F42.9 ; Anxiety F41.9 and Recurrent major depressive disorder, in partial remission F33.41 [facility] [address] [place] [id number], [place] [address]- [address] Dec, Traumatic brain injury, without LOC, initial encounter S06.9X0A [facility] [address] [place] [id number], [place] [address]- 0204 Dec, Anxiety F41.9 and Recurrent major depressive disorder, in partial remission F33.41 [facility] [address] [place] [address] 67003- 8959 02 Dec, 2016 Traumatic brain injury, without LOC, initial encounter S06.9X0A ; Intractable chronic migraine without aura and without status migrainosus G43.719 ; Anxiety F41.9 and Recurrent major depressive disorder, in partial remission F33.41 [facility] [address], [place] [address]- 8[address] Dec, [facility] [address] [place] [id number] [place] [id number] Nov, Intractable chronic migraine without aura and without status migrainosus G43.719 [facility] [address] [place] [id number] Nov, Obsessive-compulsive disorder, unspecified type F42.9 ; Anxiety F41.9 and Intractable chronic migraine without aura and without status migrainosus G43.719 [facility] [address] [place] [id number], [place] [address]- 0964 Nov, Traumatic brain injury, without LOC, initial encounter S06.9X0A ; Intractable chronic migraine without aura and without status migrainosus G43.719 ; Anxiety F41.9 and Recurrent major depressive disorder, in partial remission F33.41 [facility] [address] [id number] [id number] Nov, [facility] [address] [place] [id number], [place] [address]- 8881 Nov, Anxiety F41.9 and Recurrent major depressive disorder, in partial remission F33.41 [facility] [address], [place] [address]- 6[address] Nov, [facility] [address] [id number] [address] Nov, [facility] [address], [place] [address]- 2973 Oct, [facility] [address] [place] [address] 84101- 6959 Oct, Anxiety F41.9 and Recurrent major depressive disorder, in partial remission F33.41 [facility] [address], [place] [address]- 1459 Oct, [facility] [address], [place] [address]- 8738 September, Anxiety F41.9 and Recurrent major depressive disorder, in partial remission F33.41 [facility] [address], [place] [address]- 1728 September, Traumatic brain injury, without LOC, initial encounter S06.9X0A ; Intractable chronic migraine without aura and without status migrainosus G43.719 ; Anxiety F41.9 and Recurrent major depressive disorder, in partial remission F33.41 [facility] [address], [place] [address]- 3627 September, [facility] [address], [place] [address]- 9730 September, Anxiety F41.9 [facility] [address] [place] [id number], [place] [address]- 3914 September, [facility] [address] [id number] [id number] September, Type 2 diabetes mellitus with unspecified complications E11.8 [facility] [id number] [address] September, Type 2 diabetes mellitus with unspecified complications E11.8 [facility] [address] [place] [address] [id number] September, Essential hypertension I10 and History of traumatic brain injury Z87.820 [place] [address] [place] [id number] [place] [address] 61616- 7472 Aug, [facility] [address] [place] [address] [id number] Aug, Type 2 diabetes mellitus with unspecified complications E11.8 and Benign prostatic hyperplasia with lower urinary tract symptoms, unspecified morphology N40.1 [facility] [address] [place] [id number] [place] [address] [id number] Aug, [place] [address] [place] [id number] [place] [address] 36405- 9260 Aug, [place] [address] [place] [id number] [place] [address] 02832170- 0985 Jul, Traumatic brain injury, without LOC, initial encounter S06.9X0A ; Intractable chronic migraine without aura and without status migrainosus G43.719 ; Anxiety F41.9 and Recurrent major depressive disorder, in partial remission F33.41 [place] [address] [place] [id number] [place] [address] 21464- 2044 Jul, [place] [address] [place] [id number] [place] [address] 40239- 6826 Jul, [facility] [address] [place] [id number] [place] [address] [id number] Jun, [place] [address] [place] [id number] [place] [address] 03628- 9575 Jun, [place] [address] [place] [id number] [place] [address] 50720- 9701 Jun, [facility] [address] [place] [address] [id number] Jun, Encounter to establish care Z76.89 [facility] [address] [place] [id number] [place] [address] 51728- 4920 Jun, [place] [address] [place] [address]- 0392 Jun, [facility] [address] [facility] [id number] [address]- 3940 Jun, [facility] [address] [facility] [id number], [place] [address] 2546 Jun, [facility] [address] [place] [address] May, Dental examination Z01.20 [facility] [address] [place] [address] Dec, [facility] examination Z01.20 [facility] [address] [place] [address] September, Dental examination Z01.20 [facility] [address] [place] [address] Dec, Dental examination V72.2 [facility] [address], [place] [address]- 9459 Aug, [facility] [address] [place] [id number], [place] [address]- 4161 Aug, [facility] [address] [place] [id number] [address] 6373 Apr, [facility] [address] [facility] [id number], [place] [address] 8842 Nov, [facility] [address] [place] [id number], [place] [address]- 0281 Nov, [facility] [address] [facility] [id number], [place] [address]- 1732 Nov, [facility] [address] [facility] [id number], [place] [address]- 2948 Nov, [facility] [address] [facility] [id number], [place] [address]- 7328 Oct, [facility] [address] [facility] [id number], [place] [address]- 6[address] May, [facility] [address] [facility] [id number] [place] [address] May, IMMUNIZATIONS No Known Immunizations SOCIAL HISTORY Never Assessed REASON FOR VISIT Controlled Med Refill PLAN OF CARE VITAL SIGNS MEDICATIONS Medication Instructions Dosage Frequency Start Date End Date Duration Status Clonazepam 1 MG Orally 3 times a day 1 tablet 8h 28 days Active RESULTS No Results PROCEDURES No Known procedures INSTRUCTIONS MEDICATIONS ADMINISTERED No Known Medications MEDICAL (GENERAL) HISTORY Type Description Date Medical History History of traumatic brain injury Subdural hematoma from falling out of bed 2012 Medical History Type 2 diabetes mellitus with unspecified complications 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
--- OUTSIDE RECORDS SUMMARY | 2018-07-02 11:56 | XMS REPORT ---
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 94732650 Problem History of traumatic brain injury Z87.820 Active 94464995160794 Problem Benign prostatic hyperplasia with lower urinary tract symptoms, unspecified morphology N40.1 Active 211209368 Problem Persistent migraine aura without cerebral infarction and without status migrainosus, not intractable G43.509 Active 726695802 Problem Type 2 diabetes mellitus with unspecified complications E11.8 Active 72253644 Problem Traumatic brain injury, without LOC, initial encounter S06.9X0A Active 312622454 Problem 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 Active 21789828 Problem Intractable chronic migraine without aura and without status migrainosus G43.719 Active 579782315 Problem Recurrent major depressive disorder, in partial remission F33.41 Active 87126176 Problem Obsessive-compulsive disorder, unspecified type F42.9 Active 722697988 Problem Glaucoma, unspecified glaucoma, unspecified laterality H40.9 Active 91532215 Problem Hyperlipidemia, unspecified hyperlipidemia type E78.5 Active 98293213 Problem Rad (reactive airway disease), mild intermittent, uncomplicated J45.20 Active 906432124577 Problem History of gout Z87.39 Active 943251066 Problem Herpes B00.9 Active 67703010 Problem Weak urinary stream R39.12 Active 25196647 Problem Gastroesophageal reflux disease without esophagitis K21.9 Active 272220778 Problem Anemia, unspecified type D64.9 Active 203035043 Problem Essential hypertension I10 Active 19318608 ALLERGIES No Information ENCOUNTERS Encounter Location Date Diagnosis [facility] [address] [place] [address] Dec, 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 [place] [id number] [place] [address] 22 Oct, 2017 [facility] [address] [place] [id number] Oct, Excessive anger R45.4 and Obsessive-compulsive disorder, unspecified type F42.9 [facility] [facility] [id number] [place] [address] 0[address] Oct, Anxiety F41.9 ; Traumatic brain injury, without LOC, initial encounter S06.9X0A ; Intractable chronic migraine without aura and without status migrainosus G43.719 and Recurrent major depressive disorder, in partial remission F33.41 [facility] [facility] [id number] [place] [address]27[address]- 0[address] 12 Oct, 2017 [facility] [id number] [address] 05 Oct, 2017 [place] [id number] [place] [address]60[address] 6689 Oct, [facility] [facility] [id number] [place] [address]708[address] 3745 September, Anxiety F41.9 ; Traumatic brain injury, without LOC, initial encounter S06.9X0A ; Intractable chronic migraine without aura and without status migrainosus G43.719 and Recurrent major depressive disorder, in partial remission F33.41 [facility] [address] [place] [id number] September, Weight gain R63.5 and Type 2 diabetes mellitus with unspecified complications E11.8 [facility] [id number] [address] September, [facility] [address] [address] Aug, [facility] [address] [place] [address] Aug, [facility] [address] [place] [address]695[address] 4290 Aug, [facility] [address] [place] [address] 10458- 3301 Jul, Intractable chronic migraine without aura and without status migrainosus G43.719 [facility] [address] [address] Jul, Intractable chronic migraine without aura and without status migrainosus G43.719 [facility] [address] [place] [address] Jul, History of traumatic brain injury Z87.820 ; Recurrent major depressive disorder, in partial remission F33.41 and Type 2 diabetes mellitus with unspecified complications E11.8 [facility] [id number] [id number] Jul, [facility] [id number] [place] [id number] Jul, Intractable chronic migraine without aura and without status migrainosus G43.719 [facility] [id number] [address] [address] Jun, Anxiety F41.9 ; Traumatic brain injury, without LOC, initial encounter S06.9X0A ; Intractable chronic migraine without aura and without status migrainosus G43.719 and Recurrent major depressive disorder, in partial remission F33.41 [facility] [id number] [id number] Jun, [facility] [address] [address] Jun, [facility] [address] [id number] [id number] Jun, Intractable chronic migraine without aura and without status migrainosus G43.719 [facility] [address] [facility] [id number], [place] [address] May, [facility] [address] [place] [address] May, Recurrent major depressive disorder, in partial remission F33.41 ; Traumatic brain injury, without LOC, initial encounter S06.9X0A and Anxiety F41.9 [facility] [id number] [address] May, [facility] [address] [id number] [address] May, [facility] [id number] [address] May, Intractable chronic migraine without aura and without status migrainosus G43.719 [facility] [id number] [address] Apr, Anxiety F41.9 ; Traumatic brain injury, without LOC, initial encounter S06.9X0A ; Intractable chronic migraine without aura and without status migrainosus G43.719 and Recurrent major depressive disorder, in partial remission F33.41 [facility] [id number] [address] Apr, [facility] [address] [id number] [id number] Apr, Intractable chronic migraine without aura and without status migrainosus G43.719 [facility] [id number] [address] 2546 Apr, [facility] [id number] [address] Apr, [facility] [id number] [id number] Mar, [facility] [id number] [address] Mar, [facility] [id number] [id number] Mar, [facility] [id number] [address] Mar, Intractable chronic migraine without aura and without status migrainosus G43.719 [facility] [address] [place] [id number] Mar, Encounter for examination for admission to senior living Z02.2 ; History of traumatic brain injury Z87.820 ; Recurrent major depressive disorder, in partial remission F33.41 ; Anxiety F41.9 ; Obsessive-compulsive disorder, unspecified type F42.9 ; Essential hypertension I10 and Type 2 diabetes mellitus with unspecified complications E11.8 [facility] [id number] [id number] Feb, [facility] [id number] [address] 10 Feb, 2017 Obsessive-compulsive disorder, unspecified type F42.9 ; Anxiety F41.9 and Recurrent major depressive disorder, in partial remission F33.41 [facility] [id number] [address] 27 Jan, 2017 Traumatic brain injury, without LOC, initial encounter S06.9X0A ; Intractable chronic migraine without aura and without status migrainosus G43.719 ; Anxiety F41.9 and Recurrent major depressive disorder, in partial remission F33.41 [facility] [id number] [address] 98[address] 20 Jan, 2017 Intractable chronic migraine without aura and without status migrainosus G43.719 [facility] [id number] [address] 19 Jan, 2017 History of traumatic brain injury Z87.820 ; Anxiety F41.9 and Recurrent major depressive disorder, in partial remission F33.41 [facility] [id number] [address] 8[address] 13 Jan, 2017 [facility] [address] [place] [id number] 07 Jan, 2017 History of traumatic brain injury Z87.820 and Obsessive-compulsive disorder, unspecified type F42.9 [facility] [address] [place] [address] 44101- 9729 06 Jan, 2017 Traumatic brain injury, without LOC, initial encounter S06.9X0A ; Intractable chronic migraine without aura and without status migrainosus G43.719 ; Anxiety F41.9 and Recurrent major depressive disorder, in partial remission F33.41 [facility] [address] [place] [address] 38941- 1121 05 Jan, 2017 History of traumatic brain injury Z87.820 ; Obsessive- compulsive disorder, unspecified type F42.9 ; Anxiety F41.9 and Recurrent major depressive disorder, in partial remission F33.41 [facility] [id number], [place] [address] Dec, [facility] [id number] [place] [id number] Dec, Intractable chronic migraine without aura and without status migrainosus G43.719 [facility] [address] [place] [id number] Dec, Type 2 diabetes mellitus with unspecified complications E11.8 and Essential hypertension I10 [facility] [id number] [place] [address] 34546- 3604 Dec, Traumatic brain injury, without LOC, initial encounter S06.9X0A [facility] [address] [place] [address] 67940- 4922 16 Dec, 2016 Traumatic brain injury, without LOC, initial encounter S06.9X0A ; Intractable chronic migraine without aura and without status migrainosus G43.719 ; Anxiety F41.9 and Recurrent major depressive disorder, in partial remission F33.41 [place] [address], [place] [address]- 2683 Dec, [facility] [place] [address] [place] [address] 98049- 7929 Dec, History of traumatic brain injury Z87.820 ; Obsessive- compulsive disorder, unspecified type F42.9 ; Anxiety F41.9 and Recurrent major depressive disorder, in partial remission F33.41 [place] [id number] [place] [address] 25796- 9777 09 Dec, 2016 Traumatic brain injury, without LOC, initial encounter S06.9X0A [facility] [address] [place] [address] 83542- 5717 Dec, Anxiety F41.9 and Recurrent major depressive disorder, in partial remission F33.41 [place] [address] [place] [address] 86936- 1652 02 Dec, 2016 Traumatic brain injury, without LOC, initial encounter S06.9X0A ; Intractable chronic migraine without aura and without status migrainosus G43.719 ; Anxiety F41.9 and Recurrent major depressive disorder, in partial remission F33.41 [place] [address] [place] [address] 08055- 8589 Dec, [facility] [id number] [place] [address] [id number] Nov, Intractable chronic migraine without aura and without status migrainosus G43.719 [facility] [address] [place] [address] Nov, Obsessive-compulsive disorder, unspecified type F42.9 ; Anxiety F41.9 and Intractable chronic migraine without aura and without status migrainosus G43.719 [place] [address] [place] [address] 19913- 8361 Nov, Traumatic brain injury, without LOC, initial encounter S06.9X0A ; Intractable chronic migraine without aura and without status migrainosus G43.719 ; Anxiety F41.9 and Recurrent major depressive disorder, in partial remission F33.41 [facility] [address] [id number] [address] Nov, [facility] [address], [place] [address]- 1127 Nov, Anxiety F41.9 and Recurrent major depressive disorder, in partial remission F33.41 [facility] [address], [place] [address]- 3286 Nov, [facility] [id number] [place] [address] [id number] Nov, [facility] [address] [place] [address] 14041- 4979 Oct, [facility] [id number] [place] [address] 36997- 3217 Oct, Anxiety F41.9 and Recurrent major depressive disorder, in partial remission F33.41 [facility] [address], [place] [address]- 3684 Oct, [facility] [address], [place] [address]- 3741 September, Anxiety F41.9 and Recurrent major depressive disorder, in partial remission F33.41 [facility] [address], [place] [address]- 5269 September, Traumatic brain injury, without LOC, initial encounter S06.9X0A ; Intractable chronic migraine without aura and without status migrainosus G43.719 ; Anxiety F41.9 and Recurrent major depressive disorder, in partial remission F33.41 [facility] [address], [place] [address]- 0826 September, [facility] [address], [place] [address]- 0808 September, Anxiety F41.9 [facility] [address], [place] [address] September, [facility] [id number], [place] [id number] September, Type 2 diabetes mellitus with unspecified complications E11.8 [facility] [id number] [address] September, Type 2 diabetes mellitus with unspecified complications E11.8 [facility] [address] [place] [address] September, Essential hypertension I10 and History of traumatic brain injury Z87.820 [facility] [address], [place] [address]- 5596 Aug, [facility] [address] [place] [id number] Aug, Type 2 diabetes mellitus with unspecified complications E11.8 and Benign prostatic hyperplasia with lower urinary tract symptoms, unspecified morphology N40.1 [facility] [id number] [id number] Aug, [facility] [address], [place] [address]- 6556 Aug, [facility] [address] [place] [address] 34133096- 9267 Jul, Traumatic brain injury, without LOC, initial encounter S06.9X0A ; Intractable chronic migraine without aura and without status migrainosus G43.719 ; Anxiety F41.9 and Recurrent major depressive disorder, in partial remission F33.41 [facility] [address] [address]- 2269 Jul, [facility] [address], [place] [address]- [address] Jul, [facility] [id number] [place] [address] [id number] Jun, [facility] [address], [place] [address]- 1406 Jun, [facility] [id number] [place] [address] 37986- 4792 Jun, [facility] [address] [place] [id number] Jun, Encounter to establish care Z76.89 [facility] [address], [place] [address]- 1104 Jun, [facility] [address], [place] [address]- 3677 Jun, [facility] [address] [address] 5915 Jun, [facility] [address], [place] [address]- 1421 Jun, [facility] [address] [place] [address] May, Dental examination Z01.20 [facility] [address] [place] [address] Dec, Dental examination Z01.20 [facility] [address] [place] [address] September, Dental examination Z01.20 [facility] [address] [place] [address] Dec, Dental examination V72.2 [facility] [address] [address]- 4806 Aug, [facility] [address], [place] [address]- 6976 Aug, [facility] [address], [place] [address]- 2299 Apr, [facility] [address] [address]- 6881 Nov, [facility] [address] 5186 Nov, [facility] [id number] [address]- 4326 Nov, [facility] [address] [facility] [id number] [place] [address]- 6486 Nov, [facility] [address] [facility] [id number], [place] [address]- 2584 Oct, [facility] [address] [facility] [id number], [place] [address]- 2546 May, [facility] [address] [facility] [id number], [place] [address]- 0386 May, IMMUNIZATIONS No Known Immunizations SOCIAL HISTORY [...] diabetes mellitus with unspecified complications Medical 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
--- OUTSIDE RECORDS SUMMARY | 2018-07-02 11:56 | XMS REPORT ---
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 Name Role Phone NICK FONSECA Unavailable PROBLEMS Type Condition ICD9-CM Code ZKR90-AG Code Onset Dates Condition Status SNOMED Code Problem Essential hypertension I10 Active 36054390 Problem custodial current use of insulin Z79.4 Active 420826687 Problem Anxiety F41.9 Active 25405065 Problem Benign prostatic hyperplasia with lower urinary tract symptoms, unspecified morphology N40.1 Active 330886824 Problem Persistent migraine aura without cerebral infarction and without status migrainosus, not intractable G43.509 Active 468691907 Problem Intractable chronic migraine without aura and without status migrainosus G43.719 Active 168648776 Problem Type 2 diabetes mellitus with unspecified complications E11.8 Active 39279084 Problem 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 Active 98341251 Problem Chronic pain due to trauma G89.21 Active 083050548 Problem Recurrent major depressive disorder, in partial remission F33.41 Active 72452288 Problem Traumatic brain injury, without LOC, initial encounter S06.9X0A Active 774825810 Problem Rad (reactive airway disease), mild intermittent, uncomplicated J45.20 Active 505300802121 Problem Obsessive-compulsive disorder, unspecified type F42.9 Active 023496031 Problem History of traumatic brain injury Z87.820 Active 12847110715270 Problem Hyperlipidemia, unspecified hyperlipidemia type E78.5 Active 89278787 Problem Anemia, unspecified type D64.9 Active 180088018 Problem History of gout Z87.39 Active 338135037 Problem Glaucoma, unspecified glaucoma, unspecified laterality H40.9 Active 10736375 Problem Herpes B00.9 Active 19391355 Problem Weak urinary stream R39.12 Active 37573492 Problem Gastroesophageal reflux disease without esophagitis K21.9 Active 579991571 ALLERGIES No Information ENCOUNTERS Encounter Location Date Diagnosis [place] [id number] [place] [address] 23753- 8823 Dec, [place] [address] [address] Oct, [facility] [address] [place] [id number] Oct, Excessive anger R45.4 and Obsessive-compulsive disorder, unspecified type F42.9 [place] [address] [place] [id number] [place] [address] 84877- 3759 Oct, Anxiety F41.9 ; Traumatic brain injury, without LOC, initial encounter S06.9X0A ; Intractable chronic migraine without aura and without status migrainosus G43.719 and Recurrent major depressive disorder, in partial remission F33.41 [place] [address] [place] [id number] [place] [address] 82564- 6588 12 Oct, 2017 [place] [address] [id number] [place] [address] 24982- 7759 05 Oct, 2017 [place] [address] [id number] [place] [address] 55357- 2857 04 Oct, 2017 [place] [address] [address] [id number] [place] [address] 33922- 8334 September, Anxiety F41.9 ; Traumatic brain injury, without LOC, initial encounter S06.9X0A ; Intractable chronic migraine without aura and without status migrainosus G43.719 and Recurrent major depressive disorder, in partial remission F33.41 [facility] [address] [place] [id number] September, Weight gain R63.5 and Type 2 diabetes mellitus with unspecified complications E11.8 [place] [address] [place] [id number] [place] [address] 81414- 0168 September, [place] [address] [address] [id number] [place] [address] 44874- 8659 Aug, [facility] [address] [place] [address] Aug, [facility] [id number] [address] Aug, [facility] [address] [address] Jul, Intractable chronic migraine without aura and without status migrainosus G43.719 [facility] [id number] [address] Jul, Intractable chronic migraine without aura and without status migrainosus G43.719 [facility] [address] [place] [id number] Jul, History of traumatic brain injury Z87.820 ; Recurrent major depressive disorder, in partial remission F33.41 and Type 2 diabetes mellitus with unspecified complications E11.8 [facility] [id number] [place] [id number] Jul, [facility] [address] [id number] [id number] Jul, Intractable chronic migraine without aura and without status migrainosus G43.719 [facility] [id number] [address] Jun, Anxiety F41.9 ; Traumatic brain injury, without LOC, initial encounter S06.9X0A ; Intractable chronic migraine without aura and without status migrainosus G43.719 and Recurrent major depressive disorder, in partial remission F33.41 [facility] [id number] [place] [id number] Jun, [facility] [id number] [address] Jun, [facility] [address] [place] [address] [id number] [id number] Jun, Intractable chronic migraine without aura and without status migrainosus G43.719 [facility] [id number] [address] May, [facility] [address] [place] [id number] May, Recurrent major depressive disorder, in partial remission F33.41 ; Traumatic brain injury, without LOC, initial encounter S06.9X0A and Anxiety F41.9 [facility] [id number] [address] May, [facility] [address] [place] [id number] [id number] May, [facility] [id number] [address] May, Intractable chronic migraine without aura and without status migrainosus G43.719 [facility] [id number] [address] Apr, Anxiety F41.9 ; Traumatic brain injury, without LOC, initial encounter S06.9X0A ; Intractable chronic migraine without aura and without status migrainosus G43.719 and Recurrent major depressive disorder, in partial remission F33.41 [facility] [id number] [address] Apr, [facility] [address] [place] [id number] [place] [id number] Apr, Intractable chronic migraine without aura and without status migrainosus G43.719 [facility] [id number] [address] Apr, [facility] [id number] [address] Apr, [facility] [address] [place] [id number] [id number] Mar, [facility] [id number] [address] Mar, [facility] [address] [place] [id number] [place] [address] Mar, [facility] [id number] [address] 14 Mar, 2017 Intractable chronic migraine without aura and without status migrainosus G43.719 [facility] [address] [place] [id number] Mar, 2017 Encounter for examination for admission to [facility] Z02.2 ; History of traumatic brain injury Z87.820 ; Recurrent major depressive disorder, in partial remission F33.41 ; Anxiety F41.9 ; Obsessive-compulsive disorder, unspecified type F42.9 ; Essential hypertension I10 and Type 2 diabetes mellitus with unspecified complications E11.8 [facility] [address] [place] [id number] [place] [id number] Feb, [place] [address] [place] [address] 62709- 7100 Feb, Obsessive-compulsive disorder, unspecified type F42.9 ; Anxiety F41.9 and Recurrent major depressive disorder, in partial remission F33.41 [facility] [address] [place] [address] 24977- 8841 27 Jan, 2017 Traumatic brain injury, without LOC, initial encounter S06.9X0A ; Intractable chronic migraine without aura and without status migrainosus G43.719 ; Anxiety F41.9 and Recurrent major depressive disorder, in partial remission F33.41 [facility] [id number] [place] [address] 85958- 8986 20 Jan, 2017 Intractable chronic migraine without aura and without status migrainosus G43.719 [facility] [address] [place] [address] 78898- 6510 19 Jan, 2017 History of traumatic brain injury Z87.820 ; Anxiety F41.9 and Recurrent major depressive disorder, in partial remission F33.41 [facility] [address] [place] [address] 84015- 3575 13 Jan, 2017 [facility] [address] [place] [id number] 07 Jan, 2017 History of traumatic brain injury Z87.820 and Obsessive-compulsive disorder, unspecified type F42.9 [facility] [id number] [address] 06 Jan, 2017 Traumatic brain injury, without LOC, initial encounter S06.9X0A ; Intractable chronic migraine without aura and without status migrainosus G43.719 ; Anxiety F41.9 and Recurrent major depressive disorder, in partial remission F33.41 [facility] [address] [place] [address] 00586- 0147 05 Jan, 2017 History of traumatic brain injury Z87.820 ; Obsessive- compulsive disorder, unspecified type F42.9 ; Anxiety F41.9 and Recurrent major depressive disorder, in partial remission F33.41 [facility] [address] [place] [id number] [place] [address] [id number] 31 Dec, 2016 [facility] [address] [place] [id number] [place] [address] [id number] Dec, Intractable chronic migraine without aura and without status migrainosus G43.719 [facility] [address] [place] [id number] Dec, Type 2 diabetes mellitus with unspecified complications E11.8 and Essential hypertension I10 [facility] [address] [place] [address] 93218- 8128 18 Dec, 2016 Traumatic brain injury, without LOC, initial encounter S06.9X0A [facility] [address] [address] 47[address] 16 Dec, 2016 Traumatic brain injury, without LOC, initial encounter S06.9X0A ; Intractable chronic migraine without aura and without status migrainosus G43.719 ; Anxiety F41.9 and Recurrent major depressive disorder, in partial remission F33.41 [facility] [address] [place] [address] 85052- 1707 15 Dec, 2016 [facility] [address] [place] [address] 57528- 6655 11 Dec, 2016 History of traumatic brain injury Z87.820 ; Obsessive- compulsive disorder, unspecified type F42.9 ; Anxiety F41.9 and Recurrent major depressive disorder, in partial remission F33.41 [facility] [id number] [address]- [address] Dec, Traumatic brain injury, without LOC, initial encounter S06.9X0A [facility] [id number] [address]- 2863 Dec, Anxiety F41.9 and Recurrent major depressive disorder, in partial remission F33.41 [facility] [address] [place] [address] 04691- 7529 Dec, Traumatic brain injury, without LOC, initial encounter S06.9X0A ; Intractable chronic migraine without aura and without status migrainosus G43.719 ; Anxiety F41.9 and Recurrent major depressive disorder, in partial remission F33.41 [facility] [address] [address]- 1573 Dec, [facility] [address] [place] [id number] [place] [address] [id number] Nov, Intractable chronic migraine without aura and without status migrainosus G43.719 [facility] [address] [place] [id number] Nov, Obsessive-compulsive disorder, unspecified type F42.9 ; Anxiety F41.9 and Intractable chronic migraine without aura and without status migrainosus G43.719 [facility] [id number] [address]- 0835 Nov, Traumatic brain injury, without LOC, initial encounter S06.9X0A ; Intractable chronic migraine without aura and without status migrainosus G43.719 ; Anxiety F41.9 and Recurrent major depressive disorder, in partial remission F33.41 [facility] [id number] [place] [id number] Nov, [facility] [id number] [address]- [address] Nov, Anxiety F41.9 and Recurrent major depressive disorder, in partial remission F33.41 [facility] [address] [address]- 3346 Nov, [facility] [address] [place] [id number] [place] [address] [id number] Nov, [facility] [address] [address]- 7981 Oct, [facility] [id number] [place] [address] 46055- 4280 Oct, Anxiety F41.9 and Recurrent major depressive disorder, in partial remission F33.41 [facility] [address] [address]- 8754 Oct, [facility] [address] [place] [address] 31369- 8749 September, Anxiety F41.9 and Recurrent major depressive disorder, in partial remission F33.41 [facility] [address] [place] [address] 74826- 8718 September, Traumatic brain injury, without LOC, initial encounter S06.9X0A ; Intractable chronic migraine without aura and without status migrainosus G43.719 ; Anxiety F41.9 and Recurrent major depressive disorder, in partial remission F33.41 [facility] [address] [address]- 9323 September, [facility] [address] [address]- 6918 September, Anxiety F41.9 [facility] [address] [address]- 9994 September, [facility] [address] [id number] [place] [address] [id number] September, Type 2 diabetes mellitus with unspecified complications E11.8 [facility] [id number] [id number] September, Type 2 diabetes mellitus with unspecified complications E11.8 [facility] [address] [place] [id number] September, Essential hypertension I10 and History of traumatic brain injury Z87.820 [facility] [address] [place] [id number] [place] [address] 62395- 0666 Aug, [facility] [address] [place] [address] [id number] Aug, Type 2 diabetes mellitus with unspecified complications E11.8 and Benign prostatic hyperplasia with lower urinary tract symptoms, unspecified morphology N40.1 [facility] [address] [place] [id number] [place] [address] [id number] Aug, [place] [address] [place] [id number] [place] [address] 57748- 3364 Aug, [place] [address] [address] [id number] [place] [address] 13338418- 3276 Jul, Traumatic brain injury, without LOC, initial encounter S06.9X0A ; Intractable chronic migraine without aura and without status migrainosus G43.719 ; Anxiety F41.9 and Recurrent major depressive disorder, in partial remission F33.41 [place] [address] [address]- 8188 Jul, [place] [address] [place] [id number] [place] [address] 08416- 2074 Jul, [facility] [address] [id number] [place] [address] [id number] Jun, [place] [address] [id number] [place] [address] 73720- 1840 Jun, [facility] [address] [address]- 0107 Jun, [facility] [address] [place] [address] [id number] Jun, Encounter to establish care Z76.89 [facility] [address] [address]- 8042 Jun, [place] [address] [address] 2546 Jun, [facility] [id number] [address]- 2026 Jun, [facility] [id number] [address]- 2546 Jun, [facility] [address] [place] [address] May, Dental examination Z01.20 [facility] [address] [place] [address] Dec, Dental examination Z01.20 [facility] [address] [place] [address] September, Dental examination Z01.20 [facility] [address] [place] [address] Dec, Dental examination V72.2 [facility] [address] [address]- 8427 Aug, [facility] [id number] [address]- 8841 Aug, [facility] [address] [address] 4788 Apr, [facility] [address] [facility] [id number] [address]- 8561 Nov, [facility] [id number]97 Nov, [facility] [address] [facility] [id number] [address] 1308 Nov, [facility] [address] [facility] [id number] [address]- 0828 Nov, [facility] [address] [facility] [id number] [address] 2[address] Oct, [facility] [id number] [address]- 9589 May, [facility] [address] [facility] [id number] [place] [address] May, IMMUNIZATIONS No Known Immunizations SOCIAL HISTORY Never Assessed REASON FOR VISIT routine visit PLAN OF CARE Activity Details Follow Up prn Reason: VITAL SIGNS MEDICATIONS Medication Instructions Dosage Frequency Start Date End Date Duration Status Fluvoxamine Maleate 100 mg Orally Twice a day 1 tablet 12h 30 day(s) Active Lotrisone 1-0.05 % Externally Twice a day prn 1 application to affected area Active Amaryl 4 MG Orally Once a day 1 tablet with breakfast or the first main meal of the day 24h 06 Jun, 2017 Active Topamax 25 MG Orally Twice a day 1 tablet 12h 30 day(s) Active Saline Nasal [place] 0.65 % Nasally every 2 hrs 2 sprays in each nostril as needed Active Verapamil HCl ER 180 MG Orally twice a day 1 tablet 12h Active Lactulose 20 GM/30ML Orally twice a day 30 ml 12h Active Vitamin D 2000 UNIT Orally Once a day 1 tablet 24h Active Allopurinol 300 MG Orally Once a day 1 tablet 24h Active Flomax 0.4 MG Orally Once a day 2 capsules 24h Active Trazodone HCl 150 MG Orally Once a day 1 tablet at bedtime 24h 30 days Active Depakote Sprinkles 125 MG Orally 3 times a day 4 capsules 8h 30 days Active Latanoprost 0.005 % Ophthalmic Once a day 1 drop into affected eye in the evening 24h Active Timolol Maleate 0.5 % Ophthalmic twice a day 1 drop into danielle eyes 12h Active Urecholine 25 MG Orally 3 times a day 1 tablet 8h Active Clonazepam 1 MG Orally 3 times a day 1 tablet 8h 28 days Active Zyprexa 2.5 MG Orally twice a day 1 tablet 12h Jun, 30 day(s) Active Latuda 60 mg Orally Once a day 1 tablet with food 24h 30 days Active Melatonin 3 MG Orally Once a day 3 tablets at bedtime 24h Active Effexor XR 75 MG Orally Once a day 1 capsule with food 24h 30 days Active Exelon 4.6 MG/24HR Transdermal Once a day 1 patch to skin 24h Active Fluvoxamine Maleate 25 MG Orally Twice a day 1 tablet (give with 100mg tablet) 12h 30 day(s) Active MetFORMIN HCl ER 500 mg Orally twice a day then in 4 days increase to 1 tab in AM and 2 in PM and in 4 days increase to 2 tabs bid 1 tablet May, Active Zyprexa 2.5 MG Orally twice a day 1 tablet 12h Active Dulaglutide 0.75 MG/0.5ML Subcutaneous once weekly as directed September, Active MiraLax 17 gm/dose Orally every 12 hrs as needed 17 grams mixed in 8 oz of water or juice Active RESULTS No Results PROCEDURES Procedure Date Ordered Result Body Site Minor complication (15 mins) September 28, 2017 INSTRUCTIONS MEDICATIONS ADMINISTERED No Known Medications MEDICAL (GENERAL) HISTORY Type Description Date Medical History History of traumatic brain injury Subdural hematoma from falling out of bed 2012 Medical History Type 2 diabetes mellitus with unspecified complications Medical History custodial current use of insulin Medical 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
--- OUTSIDE RECORDS SUMMARY | 2018-07-02 11:57 | XMS REPORT ---
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 Active 680200706 Problem Anxiety F41.9 Active 50103099 Problem Benign prostatic hyperplasia with lower urinary tract symptoms, unspecified morphology N40.1 Active 330094270 Problem Persistent migraine aura without cerebral infarction and without status migrainosus, not intractable G43.509 Active 142402586 Problem Intractable chronic migraine without aura and without status migrainosus G43.719 Active 564508057 Problem Type 2 diabetes mellitus with unspecified complications E11.8 Active 22854714 Problem 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 Active 81401280 Problem Chronic pain due to trauma G89.21 Active 975068953 Problem Recurrent major depressive disorder, in partial remission F33.41 Active 06918923 Problem Traumatic brain injury, without LOC, initial encounter S06.9X0A Active 902307708 Problem Rad (reactive airway disease), mild intermittent, uncomplicated J45.20 Active 307243094166 Problem Obsessive-compulsive disorder, unspecified type F42.9 Active 133817442 Problem History of traumatic brain injury Z87.820 Active 05493230990569 Problem Hyperlipidemia, unspecified hyperlipidemia type E78.5 Active 67500463 Problem Anemia, unspecified type D64.9 Active 543926491 Problem History of gout Z87.39 Active 277826182 Problem Glaucoma, unspecified glaucoma, unspecified laterality H40.9 Active 32588982 Problem Herpes B00.9 Active 26294760 Problem Weak urinary stream R39.12 Active 94781682 Problem Gastroesophageal reflux disease without esophagitis K21.9 Active 216907323 ALLERGIES No Information ENCOUNTERS Encounter Location Date Diagnosis [place] [id number] [place] [address] Dec, [place] [address] [address] Oct, [facility] [address] [place] [id number] Oct, Excessive anger R45.4 and Obsessive-compulsive disorder, unspecified type F42.9 [place] [address] [place] [id number] [place] [address]609- [address] Oct, Anxiety F41.9 ; Traumatic brain injury, without LOC, initial encounter S06.9X0A ; Intractable chronic migraine without aura and without status migrainosus G43.719 and Recurrent major depressive disorder, in partial remission F33.41 [place] [address] [place] [id number] [place] [address]79- 9073 12 Oct, 2017 [place] [address] [place] [id number] [place] [address] 50080- 0636 05 Oct, 2017 [place] [address] [place] [id number] [place] [address] 93707- 1516 04 Oct, 2017 [place] [address] [place] [id number] [place] [address] 54746- 2847 September, Anxiety F41.9 ; Traumatic brain injury, without LOC, initial encounter S06.9X0A ; Intractable chronic migraine without aura and without status migrainosus G43.719 and Recurrent major depressive disorder, in partial remission F33.41 [facility] [address] [place] [id number] September, Weight gain R63.5 and Type 2 diabetes mellitus with unspecified complications E11.8 [place] [address] [place] [id number] [place] [address] 02261- 4702 September, [place] [address] [place] [id number] [place] [address] 93116- 97[address] Aug, [facility] [address] [place] [address] Aug, [facility] [address] [facility] [id number] [address] Aug, [facility] [address] [place] [id number] [address] Jul, Intractable chronic migraine without aura and without status migrainosus G43.719 [facility] [address] [place] [id number] [address] Jul, Intractable chronic migraine without aura and without status migrainosus G43.719 [facility] [address] [place] [id number] Jul, History of traumatic brain injury Z87.820 ; Recurrent major depressive disorder, in partial remission F33.41 and Type 2 diabetes mellitus with unspecified complications E11.8 [facility] [id number] [id number] Jul, [facility] [address] [id number] [id number] Jul, Intractable chronic migraine without aura and without status migrainosus G43.719 [facility] [address] [place] [id number] [address] Jun, Anxiety F41.9 ; Traumatic brain injury, without LOC, initial encounter S06.9X0A ; Intractable chronic migraine without aura and without status migrainosus G43.719 and Recurrent major depressive disorder, in partial remission F33.41 [facility] [id number] [place] [id number] Jun, [facility] [address] [facility] [id number] [address] Jun, [facility] [id number] [place] [id number] Jun, Intractable chronic migraine without aura and without status migrainosus G43.719 [facility] [address] [place] [id number] [address] May, [facility] [address] [place] [id number] May, Recurrent major depressive disorder, in partial remission F33.41 ; Traumatic brain injury, without LOC, initial encounter S06.9X0A and Anxiety F41.9 [facility] [address] [place] [id number] [address] May, [facility] [address] [place] [id number] [address] May, [facility] [address] [place] [id number] [address] May, Intractable chronic migraine without aura and without status migrainosus G43.719 [facility] [address] [place] [id number] [address] Apr, Anxiety F41.9 ; Traumatic brain injury, without LOC, initial encounter S06.9X0A ; Intractable chronic migraine without aura and without status migrainosus G43.719 and Recurrent major depressive disorder, in partial remission F33.41 [facility] [address] [place] [id number] [address] Apr, [facility] [address] [place] [id number] [place] [id number] Apr, Intractable chronic migraine without aura and without status migrainosus G43.719 [facility] [address] [place] [id number] [address] Apr, [facility] [address] [place] [id number] [address] Apr, [facility] [address] [place] [id number] [id number] Mar, [facility] [address] [place] [id number] [address] Mar, [facility] [id number] [place] [address] Mar, [facility] [address] [place] [address]- 3056 Mar, Intractable chronic migraine without aura and without status migrainosus G43.719 [facility] [place] [address] [place] [id number] Mar, Encounter for examination for admission to group home Z02.2 ; History of traumatic brain injury Z87.820 ; Recurrent major depressive disorder, in partial remission F33.41 ; Anxiety F41.9 ; Obsessive-compulsive disorder, unspecified type F42.9 ; Essential hypertension I10 and Type 2 diabetes mellitus with unspecified complications E11.8 [facility] [id number] [place] [id number] Feb, [place] [address] [place] [id number] [place] [address] 46679- [address]99 Feb, Obsessive-compulsive disorder, unspecified type F42.9 ; Anxiety F41.9 and Recurrent major depressive disorder, in partial remission F33.41 [place] [address] [place] [id number] [place] [address] 34764- 1138 Jan, Traumatic brain injury, without LOC, initial encounter S06.9X0A ; Intractable chronic migraine without aura and without status migrainosus G43.719 ; Anxiety F41.9 and Recurrent major depressive disorder, in partial remission F33.41 [place] [address] [place] [id number] [address] Jan, Intractable chronic migraine without aura and without status migrainosus G43.719 [facility] [address] [place] [id number] [place] [address] 69070- 4207 Jan, History of traumatic brain injury Z87.820 ; Anxiety F41.9 and Recurrent major depressive disorder, in partial remission F33.41 [place] [address] [place] [address] 34157- 2728 13 Jan, 2017 [facility] [address] [place] [id number] 07 Jan, 2017 History of traumatic brain injury Z87.820 and Obsessive-compulsive disorder, unspecified type F42.9 [place] [address] [place] [id number] [address] 06 Jan, 2017 Traumatic brain injury, without LOC, initial encounter S06.9X0A ; Intractable chronic migraine without aura and without status migrainosus G43.719 ; Anxiety F41.9 and Recurrent major depressive disorder, in partial remission F33.41 [facility] [address]65100[place] [address] 05 Jan, 2017 History of traumatic brain injury Z87.820 ; Obsessive- compulsive disorder, unspecified type F42.9 ; Anxiety F41.9 and Recurrent major depressive disorder, in partial remission F33.41 [facility] [address] [place] [id number] [place] [id number] 31 Dec, 2016 [facility] [address] [place] [id number] [place] [id number] Dec, Intractable chronic migraine without aura and without status migrainosus G43.719 [facility] [address] [place] [id number] Dec, Type 2 diabetes mellitus with unspecified complications E11.8 and Essential hypertension I10 [facility] [address] [place] [address] 66276- 1815 18 Dec, 2016 Traumatic brain injury, without LOC, initial encounter S06.9X0A [facility] [address] [place] [id number] [address]- 5860 16 Dec, 2016 Traumatic brain injury, without LOC, initial encounter S06.9X0A ; Intractable chronic migraine without aura and without status migrainosus G43.719 ; Anxiety F41.9 and Recurrent major depressive disorder, in partial remission F33.41 [facility] [address]00565100[place] [address]- [address] 15 Dec, 2016 [facility] [address] [place] [address] 39580- 1902 Dec, History of traumatic brain injury Z87.820 ; Obsessive- compulsive disorder, unspecified type F42.9 ; Anxiety F41.9 and Recurrent major depressive disorder, in partial remission F33.41 [facility] [address] [place] [id number] [address]- 4595 Dec, Traumatic brain injury, without LOC, initial encounter S06.9X0A [facility] [address] [place] [id number] [address]- 8103 Dec, Anxiety F41.9 and Recurrent major depressive disorder, in partial remission F33.41 [facility] [address] [place] [address] 39357- 7449 Dec, Traumatic brain injury, without LOC, initial encounter S06.9X0A ; Intractable chronic migraine without aura and without status migrainosus G43.719 ; Anxiety F41.9 and Recurrent major depressive disorder, in partial remission F33.41 [facility] [address]00565100[place] [address] 5[address] Dec, [facility] [address] [place] [id number] [place] [id number] Nov, Intractable chronic migraine without aura and without status migrainosus G43.719 [facility] [address] [place] [address] Nov, Obsessive-compulsive disorder, unspecified type F42.9 ; Anxiety F41.9 and Intractable chronic migraine without aura and without status migrainosus G43.719 [facility] [address] [place] [id number] [address]- 0568 Nov, Traumatic brain injury, without LOC, initial encounter S06.9X0A ; Intractable chronic migraine without aura and without status migrainosus G43.719 ; Anxiety F41.9 and Recurrent major depressive disorder, in partial remission F33.41 [facility] [address] [place] [id number] [id number] Nov, [facility] [address] [place] [id number] [address]- 26[address] Nov, Anxiety F41.9 and Recurrent major depressive disorder, in partial remission F33.41 [place] [address] [place] [id number] [address]- 0042 Nov, [facility] [address] [place] [id number] [id number] Nov, [facility] [address] [place] [id number] [address] Oct, [facility] [address]65100[place] [address]- 6762 Oct, Anxiety F41.9 and Recurrent major depressive disorder, in partial remission F33.41 [facility] [address] [place] [id number] [address]161 Oct, [facility] [address]00565100[place] [address]- 8379 September, Anxiety F41.9 and Recurrent major depressive disorder, in partial remission F33.41 [facility] [address]00565100[place] [address]- 2511 September, Traumatic brain injury, without LOC, initial encounter S06.9X0A ; Intractable chronic migraine without aura and without status migrainosus G43.719 ; Anxiety F41.9 and Recurrent major depressive disorder, in partial remission F33.41 [facility] [address] [address] September, [facility] [address] [place] [id number] [address]1 September, Anxiety F41.9 [facility] [address] [place] [id number] [address] September, [facility] [address] [place] [id number] [address] September, Type 2 diabetes mellitus with unspecified complications E11.8 [facility] [id number] [address] September, Type 2 diabetes mellitus with unspecified complications E11.8 [facility] [address] [place] [address] September, Essential hypertension I10 and History of traumatic brain injury Z87.820 [place] [address] [place] [id number] [place] [address] 87076- 9819 Aug, [facility] [address] [place] [id number] Aug, Type 2 diabetes mellitus with unspecified complications E11.8 and Benign prostatic hyperplasia with lower urinary tract symptoms, unspecified morphology N40.1 [facility] [address] [id number] Aug, [place] [address] [place] [id number] [place] [address] 67314- 6668 Aug, [place] [address] [place] [id number] [place] [address] 86824123- 7808 Jul, Traumatic brain injury, without LOC, initial encounter S06.9X0A ; Intractable chronic migraine without aura and without status migrainosus G43.719 ; Anxiety F41.9 and Recurrent major depressive disorder, in partial remission F33.41 [place] [address] [place] [id number] [place] [address] 01682- 9306 Jul, [place] [address] [place] [id number] [place] [address] 85156- 7385 Jul, [facility] [address] [place] [id number] [place] [address] [id number] Jun, [place] [address] [place] [id number] [place] [address] 63011- 2930 Jun, [facility] [address] [place] [id number] [place] [address] 91241- 1902 Jun, [facility] [address] [place] [id number] Jun, Encounter to establish care Z76.89 [facility] [address] [place] [id number] [place] [address] 97335- 0312 Jun, [place] [address] [place] [address] 2546 Jun, [facility] [address] [facility] [id number] [address]- 4416 Jun, [facility] [address] [facility] [id number] [address] 2546 Jun, [facility] [address] [place] [address] May, Dental examination Z01.20 [facility] [address] [place] [address] Dec, Dental examination Z01.20 [facility] [address] [place] [address] September, Dental examination Z01.20 [facility] [address] [place] [address] Dec, Dental examination V72.2 [facility] [address] [place] [id number] [address]- 5245 Aug, [facility] [address] [facility] [id number] [address]- 2602 Aug, [facility] [address] [facility] [id number] [address]- 0329 Apr, [facility] [address] [facility] [id number] [place] [address]- 9508 Nov, [facility] [address] [place] [id number] [address]- 1829 Nov, [facility] [place] [facility] [address] [facility] [id number] [address] 1507 Nov, [facility] [place] [facility] [address] [facility] [id number] [place] [address]- 9390 Nov, [facility] [place] [facility] [address] [facility] [id number] [place] [address]- 2726 Oct, [facility] [place] [facility] [address] [facility] [id number] [place] [address]- 9476 May, [facility] [place] [facility] [address] [facility] [id number] [place] [address] 43[address] May, IMMUNIZATIONS No Known Immunizations SOCIAL HISTORY Never Assessed REASON FOR VISIT Cannot sleep PLAN OF CARE VITAL SIGNS MEDICATIONS Unknown Medications RESULTS No Results PROCEDURES No Known procedures INSTRUCTIONS MEDICATIONS ADMINISTERED No Known Medications MEDICAL (GENERAL) HISTORY Type Description Date Medical History History of traumatic brain injury Subdural hematoma from falling out of bed 2012 Medical History Type 2 diabetes mellitus with unspecified complications Medical 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
--- OUTSIDE RECORDS SUMMARY | 2018-07-02 11:57 | XMS REPORT ---
Author Author NCIK FONSECA Organization [facility] Address [address] [place] [address] Care Team Providers [facility] Name Role Phone NICK FONSECA Unavailable PROBLEMS Type Condition ICD9-CM Code PZG90-AV Code Onset Dates Condition Status SNOMED Code Problem Essential hypertension I10 Active 07498126 Problem halfway current use of insulin Z79.4 Active 415243431 Problem Anxiety F41.9 Active 73111286 Problem Benign prostatic hyperplasia with lower urinary tract symptoms, unspecified morphology N40.1 Active 777947566 Problem Persistent migraine aura without cerebral infarction and without status migrainosus, not intractable G43.509 Active 731582710 Problem Intractable chronic migraine without aura and without status migrainosus G43.719 Active 399672574 Problem Type 2 diabetes mellitus with unspecified complications E11.8 Active 34301741 Problem 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 Active 02163994 Problem Chronic pain due to trauma G89.21 Active 078714615 Problem Recurrent major depressive disorder, in partial remission F33.41 Active 44710028 Problem Traumatic brain injury, without LOC, initial encounter S06.9X0A Active 570979726 Problem Rad (reactive airway disease), mild intermittent, uncomplicated J45.20 Active 228783534429 Problem Obsessive-compulsive disorder, unspecified type F42.9 Active 427319363 Problem History of traumatic brain injury Z87.820 Active 22961876559768 Problem Hyperlipidemia, unspecified hyperlipidemia type E78.5 Active 20975016 Problem Anemia, unspecified type D64.9 Active 558131394 Problem History of gout Z87.39 Active 203168194 Problem Glaucoma, unspecified glaucoma, unspecified laterality H40.9 Active 71375147 Problem Herpes B00.9 Active 63956247 Problem Weak urinary stream R39.12 Active 37311197 Problem Gastroesophageal reflux disease without esophagitis K21.9 Active 791689117 ALLERGIES No Information ENCOUNTERS Encounter Location Date Diagnosis [place] [id number] [place] [address]75- 2607 Dec, [place] [address] [address] Oct, [facility] [address] [place] [id number] Oct, Excessive anger R45.4 and Obsessive-compulsive disorder, unspecified type F42.9 [place] [address] [place] [id number] [place] [address]40- 7696 Oct, Anxiety F41.9 ; Traumatic brain injury, without LOC, initial encounter S06.9X0A ; Intractable chronic migraine without aura and without status migrainosus G43.719 and Recurrent major depressive disorder, in partial remission F33.41 [place] [address] [place] [id number] [place] [address] 15606- 0940 12 Oct, 2017 [place] [address] [place] [id number] [place] [address] 92128- 0473 05 Oct, 2017 [place] [address] [place] [id number] [place] [address] 00474- 9037 04 Oct, 2017 [place] [address] [place] [id number] [place] [address] 21174- 6725 September, Anxiety F41.9 ; Traumatic brain injury, without LOC, initial encounter S06.9X0A ; Intractable chronic migraine without aura and without status migrainosus G43.719 and Recurrent major depressive disorder, in partial remission F33.41 [facility] [address] [place] [id number] September, Weight gain R63.5 and Type 2 diabetes mellitus with unspecified complications E11.8 [place] [address] [address] September, [place] [address] [place] [id number] [place] [address] 52196- 8791 Aug, [facility] [address] [place] [address] Aug, [facility] [address] [address] [id number] [address] Aug, [facility] [address] [address] Jul, Intractable chronic migraine without aura and without status migrainosus G43.719 [facility] [address] [place] [address] [id number] [address] Jul, Intractable chronic migraine without aura and without status migrainosus G43.719 [facility] [address] [place] [id number] Jul, History of traumatic brain injury Z87.820 ; Recurrent major depressive disorder, in partial remission F33.41 and Type 2 diabetes mellitus with unspecified complications E11.8 [facility] [id number] [id number] Jul, [facility] [address] [place] [id number] [place] [id number] Jul, Intractable chronic migraine without aura and without status migrainosus G43.719 [facility] [address] [id number] [address] Jun, Anxiety F41.9 ; Traumatic brain injury, without LOC, initial encounter S06.9X0A ; Intractable chronic migraine without aura and without status migrainosus G43.719 and Recurrent major depressive disorder, in partial remission F33.41 [facility] [id number] [id number] Jun, [facility] [address] [address] [id number], [place] [address] Jun, [facility] [address] [place] [address] [id number] [id number] Jun, Intractable chronic migraine without aura and without status migrainosus G43.719 [facility] [address] [address] [id number] [address] May, [facility] [address] [place] [id number] May, Recurrent major depressive disorder, in partial remission F33.41 ; Traumatic brain injury, without LOC, initial encounter S06.9X0A and Anxiety F41.9 [facility] [address] [address] [id number], [place] [address] May, [facility] [address] [place] [id number] [id number] May, [facility] [address] [place] [address] [id number] [address] May, Intractable chronic migraine without aura and without status migrainosus G43.719 [facility] [address] [facility] [id number] [address] Apr, Anxiety F41.9 ; Traumatic brain injury, without LOC, initial encounter S06.9X0A ; Intractable chronic migraine without aura and without status migrainosus G43.719 and Recurrent major depressive disorder, in partial remission F33.41 [facility] [address] [place] [address] [id number] [address] Apr, [facility] [address] [place] [address] [id number] [place] [id number] Apr, Intractable chronic migraine without aura and without status migrainosus G43.719 [facility] [address] [address] [id number] [address] 9[address] Apr, [facility] [address] [address] [id number] [address] Apr, [facility] [address] [id number] [id number] Mar, [facility] [address] [place] [address] [id number] [address] Mar, [facility] [address] [id number] [id number] Mar, [facility] [address] [place] [address] 84446- 5016 14 Mar, 2017 Intractable chronic migraine without aura and without status migrainosus G43.719 [facility] [address] [place] [id number] Mar, Encounter for examination for admission to penitentiary Z02.2 ; History of traumatic brain injury Z87.820 ; Recurrent major depressive disorder, in partial remission F33.41 ; Anxiety F41.9 ; Obsessive-compulsive disorder, unspecified type F42.9 ; Essential hypertension I10 and Type 2 diabetes mellitus with unspecified complications E11.8 [facility] [address] [place] [id number] [place] [id number] Feb, [place] [address] [place] [id number] [place] [address] 72662- 7908 Feb, Obsessive-compulsive disorder, unspecified type F42.9 ; Anxiety F41.9 and Recurrent major depressive disorder, in partial remission F33.41 [place] [address] [place] [id number] [place] [address] 00679- 4448 27 Jan, 2017 Traumatic brain injury, without LOC, initial encounter S06.9X0A ; Intractable chronic migraine without aura and without status migrainosus G43.719 ; Anxiety F41.9 and Recurrent major depressive disorder, in partial remission F33.41 [place] [address] [place] [address] 54950- 9710 20 Jan, 2017 Intractable chronic migraine without aura and without status migrainosus G43.719 [facility] [address] [place] [address] 91693- [address] 19 Jan, 2017 History of traumatic brain injury Z87.820 ; Anxiety F41.9 and Recurrent major depressive disorder, in partial remission F33.41 [facility] [address] [place] [address] 27542- 3311 13 Jan, 2017 [facility] [address] [place] [id number] 07 Jan, 2017 History of traumatic brain injury Z87.820 and Obsessive-compulsive disorder, unspecified type F42.9 [place] [address] [place] [id number] [address] 06 Jan, 2017 Traumatic brain injury, without LOC, initial encounter S06.9X0A ; Intractable chronic migraine without aura and without status migrainosus G43.719 ; Anxiety F41.9 and Recurrent major depressive disorder, in partial remission F33.41 [facility] [address], [place] [address] 05 Jan, 2017 History of traumatic brain injury Z87.820 ; Obsessive- compulsive disorder, unspecified type F42.9 ; Anxiety F41.9 and Recurrent major depressive disorder, in partial remission F33.41 [facility] [address] [place] [id number] [place] [id number] 31 Dec, 2016 [facility] [address] [place] [id number] [place] [address] [id number] 28 Dec, 2016 Intractable chronic migraine without aura and without status migrainosus G43.719 [facility] [address] [place] [id number] Dec, Type 2 diabetes mellitus with unspecified complications E11.8 and Essential hypertension I10 [facility] [address], [place] [address]- 2144 18 Dec, 2016 Traumatic brain injury, without LOC, initial encounter S06.9X0A [facility] [address] [place] [id number], [place] [address]- 2650 16 Dec, 2016 Traumatic brain injury, without LOC, initial encounter S06.9X0A ; Intractable chronic migraine without aura and without status migrainosus G43.719 ; Anxiety F41.9 and Recurrent major depressive disorder, in partial remission F33.41 [facility] [address], [place] [address]- 3979 15 Dec, 2016 [facility] [address] [place] [address] 09610- 7818 11 Dec, 2016 History of traumatic brain injury Z87.820 ; Obsessive- compulsive disorder, unspecified type F42.9 ; Anxiety F41.9 and Recurrent major depressive disorder, in partial remission F33.41 [facility] [address] [place] [id number], [place] [address]- 9399 Dec, Traumatic brain injury, without LOC, initial encounter S06.9X0A [facility] [address] [place] [id number], [place] [address]- 3282 Dec, Anxiety F41.9 and Recurrent major depressive disorder, in partial remission F33.41 [facility] [address] [place] [address] 80211- 1730 02 Dec, 2016 Traumatic brain injury, without LOC, initial encounter S06.9X0A ; Intractable chronic migraine without aura and without status migrainosus G43.719 ; Anxiety F41.9 and Recurrent major depressive disorder, in partial remission F33.41 [facility] [address], [place] [address]- 279[address] Dec, [facility] [address] [place] [address] [id number] [place] [address] [id number] Nov, Intractable chronic migraine without aura and without status migrainosus G43.719 [facility] [address] [place] [id number] Nov, Obsessive-compulsive disorder, unspecified type F42.9 ; Anxiety F41.9 and Intractable chronic migraine without aura and without status migrainosus G43.719 [facility] [address] [address] [id number], [place] [address]- 8397 Nov, Traumatic brain injury, without LOC, initial encounter S06.9X0A ; Intractable chronic migraine without aura and without status migrainosus G43.719 ; Anxiety F41.9 and Recurrent major depressive disorder, in partial remission F33.41 [facility] [address] [place] [address] [id number] [id number] Nov, [facility] [address] [place] [address] [id number], [place] [address]- 7825 Nov, Anxiety F41.9 and Recurrent major depressive disorder, in partial remission F33.41 [facility] [address], [place] [address]- 6[address] Nov, [facility] [address] [place] [id number] [id number] Nov, [facility] [address], [place] [address]- 0658 Oct, [facility] [address] [place] [address] 51071- 9059 Oct, Anxiety F41.9 and Recurrent major depressive disorder, in partial remission F33.41 [facility] [address], [place] [address]- 9674 Oct, [facility] [address], [place] [address]- 5215 September, Anxiety F41.9 and Recurrent major depressive disorder, in partial remission F33.41 [facility] [address], [place] [address]- 3521 September, Traumatic brain injury, without LOC, initial encounter S06.9X0A ; Intractable chronic migraine without aura and without status migrainosus G43.719 ; Anxiety F41.9 and Recurrent major depressive disorder, in partial remission F33.41 [facility] [address], [place] [address]- 5748 September, [facility] [address], [place] [address]- 0894 September, Anxiety F41.9 [facility] [address] [place] [id number], [place] [address]- [address]353 September, [facility] [address] [place] [id number] [id number] September, Type 2 diabetes mellitus with unspecified complications E11.8 [facility] [id number] [id number] September, Type 2 diabetes mellitus with unspecified complications E11.8 [facility] [address] [place] [id number] September, Essential hypertension I10 and History of traumatic brain injury Z87.820 [place] [address] [place] [id number] [place] [address] 27666- 9960 Aug, [facility] [address] [place] [id number] Aug, Type 2 diabetes mellitus with unspecified complications E11.8 and Benign prostatic hyperplasia with lower urinary tract symptoms, unspecified morphology N40.1 [facility] [address] [place] [id number] [place] [address] [id number] Aug, [place] [address] [place] [id number] [place] [address] 10418- 3584 Aug, [place] [address] [place] [id number] [place] [address] 22372170- 8050 Jul, Traumatic brain injury, without LOC, initial encounter S06.9X0A ; Intractable chronic migraine without aura and without status migrainosus G43.719 ; Anxiety F41.9 and Recurrent major depressive disorder, in partial remission F33.41 [place] [address] [place] [id number] [place] [address] 87219- 2561 Jul, [place] [address] [place] [id number] [place] [address] 90387- 8406 Jul, [facility] [address] [place] [id number] [place] [address] [id number] Jun, [place] [address] [place] [id number] [place] [address] 49383- 4902 Jun, [place] [address] [place] [id number] [place] [address] 02824- 0352 Jun, [facility] [address] [place] [address] [id number] Jun, Encounter to establish care Z76.89 [facility] [address] [place] [id number] [place] [address] 87328- 8258 Jun, [place] [address] [place] [id number] [address]- 4106 Jun, [facility] [address] [facility] [id number] [address] 4[address] Jun, [facility] [address] [facility] [facility] [id number], [place] [address] 2546 Jun, [facility] [address] [place] [address] May, Dental examination Z01.20 [facility] [address] [place] [address] Dec, Dental examination Z01.20 [facility] [address] [place] [address] September, Dental examination Z01.20 [facility] [address] [place] [address] Dec, Dental examination V72.2 [facility] [address], [place] [address]- 2839 Aug, [facility] [id number], [place] [address]- 0825 Aug, [facility] [id number] 2336 Apr, [facility] [address] [facility] [id number], [place] [address]- 4910 Nov, [facility] [address] [id number], [place] [address]- 0213 Nov, [facility] [address] [facility] [facility] [id number], [place] [address]- 6470 Nov, [facility] [address] [facility] [facility] [id number], [place] [address]- 6524 Nov, [facility] [address] [facility] [facility] [id number], [place] [address]- 5195 Oct, [facility] [address] [facility] [id number], [place] [address]16 May, [facility] [address] [facility] [address] [facility] [id number] [address] 7588 May, IMMUNIZATIONS No Known Immunizations SOCIAL HISTORY Never Assessed REASON FOR VISIT decrease Lotrisone to prn PLAN OF CARE VITAL SIGNS MEDICATIONS Medication Instructions Dosage Frequency Start Date End Date Duration Status Lotrisone 1-0.05 % Externally Twice a day prn 1 application to affected area Active RESULTS No Results PROCEDURES No Known procedures INSTRUCTIONS MEDICATIONS ADMINISTERED No Known Medications MEDICAL (GENERAL) HISTORY Type Description Date Medical History History of traumatic brain injury Subdural hematoma from falling out of bed 2012 Medical History Type 2 diabetes mellitus with unspecified complications Medical History halfway current use of insulin Medical 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
--- OUTSIDE RECORDS SUMMARY | 2018-07-02 11:57 | XMS REPORT ---
Author Author NICK FONSECA Organization [facility] Address [address] [place] [address] Care Team Providers Care [place] Cutter Name Role Phone NICK FONSECA Unavailable PROBLEMS Type Condition ICD9-CM Code SRC64-CG Code Onset Dates Condition Status SNOMED Code Problem Essential hypertension I10 Active 47531256 Problem alf current use of insulin Z79.4 Active 854655365 Problem Anxiety F41.9 Active 50912705 Problem Benign prostatic hyperplasia with lower urinary tract symptoms, unspecified morphology N40.1 Active 504689729 Problem Persistent migraine aura without cerebral infarction and without status migrainosus, not intractable G43.509 Active 571968393 Problem Intractable chronic migraine without aura and without status migrainosus G43.719 Active 092472789 Problem Type 2 diabetes mellitus with unspecified complications E11.8 Active 10507144 Problem 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 Active 28170162 Problem Chronic pain due to trauma G89.21 Active 651096931 Problem Recurrent major depressive disorder, in partial remission F33.41 Active 54795060 Problem Traumatic brain injury, without LOC, initial encounter S06.9X0A Active 038961474 Problem Rad (reactive airway disease), mild intermittent, uncomplicated J45.20 Active 922936505914 Problem Obsessive-compulsive disorder, unspecified type F42.9 Active 024892207 Problem History of traumatic brain injury Z87.820 Active 07291188576832 Problem Hyperlipidemia, unspecified hyperlipidemia type E78.5 Active 18067789 Problem Anemia, unspecified type D64.9 Active 907297045 Problem History of gout Z87.39 Active 609518294 Problem Glaucoma, unspecified glaucoma, unspecified laterality H40.9 Active 33743078 Problem Herpes B00.9 Active 86473121 Problem Weak urinary stream R39.12 Active 90634462 Problem Gastroesophageal reflux disease without esophagitis K21.9 Active 779660360 ALLERGIES No Information ENCOUNTERS Encounter Location Date Diagnosis [place] [address] [place] [address]99- 2692 Dec, [place] [address] [address] Oct, [facility] [address] [place] [id number] Oct, Excessive anger R45.4 and Obsessive-compulsive disorder, unspecified type F42.9 [place] [address] [place] [id number] [place] [address] 49374- 6008 Oct, Anxiety F41.9 ; Traumatic brain injury, without LOC, initial encounter S06.9X0A ; Intractable chronic migraine without aura and without status migrainosus G43.719 and Recurrent major depressive disorder, in partial remission F33.41 [place] [address] [place] [id number] [place] [address] 38783- 6447 12 Oct, 2017 [place] [address] [place] [id number] [place] [address] 18112- 0935 05 Oct, 2017 [place] [address] [address] [id number] [place] [address] 76942- 4531 04 Oct, 2017 [place] [address] [address] [id number] [place] [address] 38753- 7501 September, Anxiety F41.9 ; Traumatic brain injury, without LOC, initial encounter S06.9X0A ; Intractable chronic migraine without aura and without status migrainosus G43.719 and Recurrent major depressive disorder, in partial remission F33.41 [facility] [address] [place] [id number] September, Weight gain R63.5 and Type 2 diabetes mellitus with unspecified complications E11.8 [place] [address] [address]- 9501 September, [place] [address] [place] [address] [id number] [place] [address] 29297- 1910 Aug, [facility] [address] [place] [address] Aug, [facility] [address] [place] [id number] [address] Aug, [facility] [address] [address] 9[address] Jul, Intractable chronic migraine without aura and without status migrainosus G43.719 [facility] [address] [id number] [address]136 Jul, Intractable chronic migraine without aura and without status migrainosus G43.719 [facility] [address] [place] [id number] Jul, History of traumatic brain injury Z87.820 ; Recurrent major depressive disorder, in partial remission F33.41 and Type 2 diabetes mellitus with unspecified complications E11.8 [facility] [id number] [address] Jul, [facility] [id number] [place] [address] [id number] Jul, Intractable chronic migraine without aura and without status migrainosus G43.719 [facility] [id number] [address] Jun, Anxiety F41.9 ; Traumatic brain injury, without LOC, initial encounter S06.9X0A ; Intractable chronic migraine without aura and without status migrainosus G43.719 and Recurrent major depressive disorder, in partial remission F33.41 [facility] [id number] [id number] Jun, [facility] [id number] [address] Jun, [facility] [address] [id number] [id number] Jun, Intractable chronic migraine without aura and without status migrainosus G43.719 [facility] [id number] [address] May, [facility] [address] [place] [id number] May, Recurrent major depressive disorder, in partial remission F33.41 ; Traumatic brain injury, without LOC, initial encounter S06.9X0A and Anxiety F41.9 [facility] [id number] [address] May, [facility] [address] [place] [id number] [id number] May, [facility] [address] [id number] [address]40 May, Intractable chronic migraine without aura and without status migrainosus G43.719 [facility] [address] [facility] [id number] [address] Apr, Anxiety F41.9 ; Traumatic brain injury, without LOC, initial encounter S06.9X0A ; Intractable chronic migraine without aura and without status migrainosus G43.719 and Recurrent major depressive disorder, in partial remission F33.41 [facility] [id number] [address] Apr, [facility] [address] [id number] [place] [id number] Apr, Intractable chronic migraine without aura and without status migrainosus G43.719 [facility] [id number] [address] 6311 Apr, [facility] [id number] [address] Apr, [facility] [address] [place] [id number] [place] [id number] Mar, [facility] [id number] [address] Mar, [facility] [address] [place] [id number] [address] Mar, [facility] [address] [place] [address] 57941- 8756 14 Mar, 2017 Intractable chronic migraine without aura and without status migrainosus G43.719 [facility] [address] [place] [id number] Mar, Encounter for examination for admission to long-term Z02.2 ; History of traumatic brain injury Z87.820 ; Recurrent major depressive disorder, in partial remission F33.41 ; Anxiety F41.9 ; Obsessive-compulsive disorder, unspecified type F42.9 ; Essential hypertension I10 and Type 2 diabetes mellitus with unspecified complications E11.8 [facility] [address] [id number] [place] [address] [id number] Feb, [place] [address] [place] [id number] [place] [address] 12913- 0279 Feb, Obsessive-compulsive disorder, unspecified type F42.9 ; Anxiety F41.9 and Recurrent major depressive disorder, in partial remission F33.41 [place] [address] [place] [address] [id number] [place] [address] 72846- 4701 27 Jan, 2017 Traumatic brain injury, without LOC, initial encounter S06.9X0A ; Intractable chronic migraine without aura and without status migrainosus G43.719 ; Anxiety F41.9 and Recurrent major depressive disorder, in partial remission F33.41 [place] [address] [place] [address] 53333- 2007 20 Jan, 2017 Intractable chronic migraine without aura and without status migrainosus G43.719 [facility] [address] [place] [address] 68243- 4409 19 Jan, 2017 History of traumatic brain injury Z87.820 ; Anxiety F41.9 and Recurrent major depressive disorder, in partial remission F33.41 [facility] [address] [place] [address] 45018- 7540 13 Jan, 2017 [facility] [address] [place] [id number] 07 Jan, 2017 History of traumatic brain injury Z87.820 and Obsessive-compulsive disorder, unspecified type F42.9 [place] [address] [place] [id number] [address]- 9965 06 Jan, 2017 Traumatic brain injury, without LOC, initial encounter S06.9X0A ; Intractable chronic migraine without aura and without status migrainosus G43.719 ; Anxiety F41.9 and Recurrent major depressive disorder, in partial remission F33.41 [facility] [address] [address]- 6219 05 Jan, 2017 History of traumatic brain injury Z87.820 ; Obsessive- compulsive disorder, unspecified type F42.9 ; Anxiety F41.9 and Recurrent major depressive disorder, in partial remission F33.41 [facility] [address] [address] [id number] [place] [address] [id number] 31 Dec, 2016 [facility] [address] [address] [id number] [place] [address] [id number] 28 Dec, 2016 Intractable chronic migraine without aura and without status migrainosus G43.719 [facility] [address] [place] [id number] Dec, Type 2 diabetes mellitus with unspecified complications E11.8 and Essential hypertension I10 [facility] [address] [address]- 9448 18 Dec, 2016 Traumatic brain injury, without LOC, initial encounter S06.9X0A [facility] [address] [place] [id number] [address]- 1240 16 Dec, 2016 Traumatic brain injury, without LOC, initial encounter S06.9X0A ; Intractable chronic migraine without aura and without status migrainosus G43.719 ; Anxiety F41.9 and Recurrent major depressive disorder, in partial remission F33.41 [facility] [address]100[place] [address]- 6305 15 Dec, 2016 [facility] [address] [place] [address] 69095- 3966 11 Dec, 2016 History of traumatic brain injury Z87.820 ; Obsessive- compulsive disorder, unspecified type F42.9 ; Anxiety F41.9 and Recurrent major depressive disorder, in partial remission F33.41 [facility] [address] [id number] [address]- 5418 Dec, Traumatic brain injury, without LOC, initial encounter S06.9X0A [facility] [address] [id number] [address] Dec, Anxiety F41.9 and Recurrent major depressive disorder, in partial remission F33.41 [facility] [address] [place] [address] 79173- 7301 02 Dec, 2016 Traumatic brain injury, without LOC, initial encounter S06.9X0A ; Intractable chronic migraine without aura and without status migrainosus G43.719 ; Anxiety F41.9 and Recurrent major depressive disorder, in partial remission F33.41 [facility] [address]100[place] [address] Dec, [facility] [id number] [place] [address] [id number] Nov, Intractable chronic migraine without aura and without status migrainosus G43.719 [facility] [address] [place] [id number] Nov, Obsessive-compulsive disorder, unspecified type F42.9 ; Anxiety F41.9 and Intractable chronic migraine without aura and without status migrainosus G43.719 [facility] [address] [id number] [address]- 8300 Nov, Traumatic brain injury, without LOC, initial encounter S06.9X0A ; Intractable chronic migraine without aura and without status migrainosus G43.719 ; Anxiety F41.9 and Recurrent major depressive disorder, in partial remission F33.41 [facility] [address] [address] [id number] [address] Nov, [facility] [address] [id number] [address]- 0014 Nov, Anxiety F41.9 and Recurrent major depressive disorder, in partial remission F33.41 [facility] [address] [address] 6[address] Nov, [facility] [address] [place] [address] [id number] [address] Nov, [facility] [address]100[place] [address]- 3411 Oct, [facility] [address] [place] [address] 25198- 5051 Oct, Anxiety F41.9 and Recurrent major depressive disorder, in partial remission F33.41 [facility] [address] [address]- 1529 Oct, [facility] [address] [address]- 7808 September, Anxiety F41.9 and Recurrent major depressive disorder, in partial remission F33.41 [facility] [address] [address]- 1713 September, Traumatic brain injury, without LOC, initial encounter S06.9X0A ; Intractable chronic migraine without aura and without status migrainosus G43.719 ; Anxiety F41.9 and Recurrent major depressive disorder, in partial remission F33.41 [facility] [address] [address]- 8290 September, [facility] [address] [address]- 3420 September, Anxiety F41.9 [facility] [address] [place] [id number] [address] September, [facility] [address] [id number] [address] September, Type 2 diabetes mellitus with unspecified complications E11.8 [facility] [id number] [address] September, Type 2 diabetes mellitus with unspecified complications E11.8 [facility] [address] [place] [address] [id number] September, Essential hypertension I10 and History of traumatic brain injury Z87.820 [place] [address] [place] [id number] [place] [address] 04163- 8797 Aug, [facility] [address] [place] [address] [id number] Aug, Type 2 diabetes mellitus with unspecified complications E11.8 and Benign prostatic hyperplasia with lower urinary tract symptoms, unspecified morphology N40.1 [facility] [address] [place] [id number] [place] [address] [id number] Aug, [place] [address] [place] [id number] [place] [address] 19921- 7267 Aug, [place] [address] [place] [address] [address] [place] [address] [id number]- 7334 Jul, Traumatic brain injury, without LOC, initial encounter S06.9X0A ; Intractable chronic migraine without aura and without status migrainosus G43.719 ; Anxiety F41.9 and Recurrent major depressive disorder, in partial remission F33.41 [place] [address] [place] [address] [id number] [place] [address] 89348- 9559 Jul, [place] [address] [place] [address] [id number] [place] [address] 56785- 8313 Jul, [facility] [address] [id number] [place] [address] [id number] Jun, [place] [address] [place] [address] [id number] [place] [address] 05271- 4072 Jun, [place] [address] [place] [id number] [place] [address] 81565- 5857 Jun, [facility] [address] [place] [address] [id number] Jun, Encounter to establish care Z76.89 [facility] [address] [place] [id number] [place] [address] 01233- 3503 Jun, [place] [address] [place] [address] 15[address]65100[place] [address]- 6353 Jun, [facility] [address] [facility] [id number] [address]- 3006 Jun, [facility] [address] [facility] [id number] [place] [address] 2546 Jun, [facility] [address] [place] [address] May, Dental examination Z01.20 [facility] [address] [place] [address] Dec, [facility] examination Z01.20 [facility] [address] [place] [address] September, Dental examination Z01.20 [facility] [address] [place] [address] Dec, Dental examination V72.2 [facility] [address] [address]- 0533 Aug, [facility] [id number] [address]- 1682 Aug, [facility] [address] [id number] [address] 2161 Apr, [facility] [address] [facility] [id number] [address]- 1186 Nov, [facility] [address] [id number] [address]- 6105 Nov, [facility] [address] [facility] [id number] [place] [address]- 6353 Nov, [facility] [address] [facility] [id number] [place] [address]- 7994 Nov, [facility] [address] [facility] [id number] [place] [address]- 2417 Oct, [facility] [address] [facility] [id number] [address] May, [facility] [address] [facility] [id number] [place] [address] May, IMMUNIZATIONS No Known Immunizations SOCIAL HISTORY [...] diabetes mellitus with unspecified complications 

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
--- OUTSIDE RECORDS SUMMARY | 2018-07-02 11:58 | XMS REPORT ---
Author Author NICK FONSECA Organization [facility] Address [address] [place] [address] Care Team Providers Care Film Producer Name Role Phone NICK FONSECA Unavailable PROBLEMS Type Condition ICD9-CM Code [id number] Code Onset Dates Condition Status SNOMED Code Problem Essential hypertension I10 Active 07331586 Problem senior care current use of insulin Z79.4 Active 776151088 Problem Anxiety F41.9 Active 98619458 Problem Benign prostatic hyperplasia with lower urinary tract symptoms, unspecified morphology N40.1 Active 472965032 Problem Persistent migraine aura without cerebral infarction and without status migrainosus, not intractable G43.509 Active 187343461 Problem Intractable chronic migraine without aura and without status migrainosus G43.719 Active 650053071 Problem Type 2 diabetes mellitus with unspecified complications E11.8 Active 59574058 Problem 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 Active 60160077 Problem Chronic pain due to trauma G89.21 Active 534702933 Problem Recurrent major depressive disorder, in partial remission F33.41 Active 78204108 Problem Traumatic brain injury, without LOC, initial encounter S06.9X0A Active 890926383 Problem Rad (reactive airway disease), mild intermittent, uncomplicated J45.20 Active 237592873493 Problem Obsessive-compulsive disorder, unspecified type F42.9 Active 317822150 Problem History of traumatic brain injury Z87.820 Active 21255896022862 Problem Hyperlipidemia, unspecified hyperlipidemia type E78.5 Active 02804517 Problem Anemia, unspecified type D64.9 Active 144598393 Problem History of gout Z87.39 Active 962171775 Problem Glaucoma, unspecified glaucoma, unspecified laterality H40.9 Active 20037613 Problem Herpes B00.9 Active 70874814 Problem Weak urinary stream R39.12 Active 23725678 Problem Gastroesophageal reflux disease without esophagitis K21.9 Active 720544320 ALLERGIES No Information ENCOUNTERS Encounter Location Date Diagnosis [place] [address] [place] [address]164- [address]168 Dec, [place] [address] [address] Oct, [facility] [address] [place] [id number] Oct, Excessive anger R45.4 and Obsessive-compulsive disorder, unspecified type F42.9 [place] [address] [place] [id number] [place] [address] 24550- 3850 Oct, Anxiety F41.9 ; Traumatic brain injury, without LOC, initial encounter S06.9X0A ; Intractable chronic migraine without aura and without status migrainosus G43.719 and Recurrent major depressive disorder, in partial remission F33.41 [place] [address] [place] [id number] [place] [address] 23334- 6117 12 Oct, 2017 [place] [address] [place] [id number] [place] [address] 51074- 6602 05 Oct, 2017 [place] [address] [place] [id number] [place] [address] 13784- 7724 04 Oct, 2017 [place] [address] [place] [id number] [place] [address] 25577- 5523 September, Anxiety F41.9 ; Traumatic brain injury, without LOC, initial encounter S06.9X0A ; Intractable chronic migraine without aura and without status migrainosus G43.719 and Recurrent major depressive disorder, in partial remission F33.41 [facility] [address] [place] [id number] September, Weight gain R63.5 and Type 2 diabetes mellitus with unspecified complications E11.8 [place] [address] [address] September, [place] [address] [place] [id number] [place] [address] 46803- 9108 Aug, [facility] [address] [place] [address] Aug, [facility] [id number] [address] Aug, [facility] [address] [address] Jul, Intractable chronic migraine without aura and without status migrainosus G43.719 [facility] [address] [place] [id number] [address] Jul, Intractable chronic migraine without aura and without status migrainosus G43.719 [facility] [address] [place] [id number] Jul, History of traumatic brain injury Z87.820 ; Recurrent major depressive disorder, in partial remission F33.41 and Type 2 diabetes mellitus with unspecified complications E11.8 [facility] [id number] [id number] Jul, [facility] [address] [place] [id number] [place] [id number] Jul, Intractable chronic migraine without aura and without status migrainosus G43.719 [facility] [address] [id number] [address] Jun, Anxiety F41.9 ; Traumatic brain injury, without LOC, initial encounter S06.9X0A ; Intractable chronic migraine without aura and without status migrainosus G43.719 and Recurrent major depressive disorder, in partial remission F33.41 [facility] [id number] [id number] Jun, [facility] [id number] [address] Jun, [facility] [id number] [id number] Jun, Intractable chronic migraine without aura and without status migrainosus G43.719 [facility] [id number] [address] May, [facility] [address] [place] [id number] May, Recurrent major depressive disorder, in partial remission F33.41 ; Traumatic brain injury, without LOC, initial encounter S06.9X0A and Anxiety F41.9 [facility] [id number] [address] May, [facility] [address] [place] [address] [id number] [address] May, [facility] [address] [place] [id number] [address] May, Intractable chronic migraine without aura and without status migrainosus G43.719 [facility] [address] [facility] [id number] [address] Apr, Anxiety F41.9 ; Traumatic brain injury, without LOC, initial encounter S06.9X0A ; Intractable chronic migraine without aura and without status migrainosus G43.719 and Recurrent major depressive disorder, in partial remission F33.41 [facility] [id number] [address] Apr, [facility] [address] [place] [id number] [place] [id number] Apr, Intractable chronic migraine without aura and without status migrainosus G43.719 [facility] [id number] [address] 4465 Apr, [facility] [id number] [address] Apr, [facility] [address] [place] [address] [id number] [id number] Mar, [facility] [address] [id number] [address] Mar, [facility] [address] [place] [address] [id number] [address] Mar, [facility] [address] [place] [address] 94286- 8910 14 Mar, 2017 Intractable chronic migraine without aura and without status migrainosus G43.719 [facility] [address] [place] [id number] Mar, Encounter for examination for admission to half-way Z02.2 ; History of traumatic brain injury Z87.820 ; Recurrent major depressive disorder, in partial remission F33.41 ; Anxiety F41.9 ; Obsessive-compulsive disorder, unspecified type F42.9 ; Essential hypertension I10 and Type 2 diabetes mellitus with unspecified complications E11.8 [facility] [address] [place] [id number] [place] [id number] Feb, [place] [address] [place] [id number] [place] [address] 36054- 1551 Feb, Obsessive-compulsive disorder, unspecified type F42.9 ; Anxiety F41.9 and Recurrent major depressive disorder, in partial remission F33.41 [place] [address] [place] [id number] [place] [address] 23648- 7866 27 Jan, 2017 Traumatic brain injury, without LOC, initial encounter S06.9X0A ; Intractable chronic migraine without aura and without status migrainosus G43.719 ; Anxiety F41.9 and Recurrent major depressive disorder, in partial remission F33.41 [place] [address] [place] [address] 11995- 2883 20 Jan, 2017 Intractable chronic migraine without aura and without status migrainosus G43.719 [facility] [address] [place] [address] 02549- 7948 19 Jan, 2017 History of traumatic brain injury Z87.820 ; Anxiety F41.9 and Recurrent major depressive disorder, in partial remission F33.41 [facility] [address] [place] [address] 57416- 0416 13 Jan, 2017 [facility]ly [facility] [address] [place] [id number] 07 Jan, 2017 History of traumatic brain injury Z87.820 and Obsessive-compulsive disorder, unspecified type F42.9 [place] [address] [place] [id number] [address] 06 Jan, 2017 Traumatic brain injury, without LOC, initial encounter S06.9X0A ; Intractable chronic migraine without aura and without status migrainosus G43.719 ; Anxiety F41.9 and Recurrent major depressive disorder, in partial remission F33.41 [facility] [address], [place] [address] 4[address] 05 Jan, 2017 History of traumatic brain injury Z87.820 ; Obsessive- compulsive disorder, unspecified type F42.9 ; Anxiety F41.9 and Recurrent major depressive disorder, in partial remission F33.41 [facility] [address] [place] [id number] [place] [address] [id number] 31 Dec, 2016 [facility] [address] [place] [id number] [place] [address] [id number] 28 Dec, 2016 Intractable chronic migraine without aura and without status migrainosus G43.719 [facility] [address] [place] [id number] Dec, Type 2 diabetes mellitus with unspecified complications E11.8 and Essential hypertension I10 [facility] [address], [place] [address] 6315 18 Dec, 2016 Traumatic brain injury, without LOC, initial encounter S06.9X0A [facility] [address] [place] [id number] [address]- 2623 16 Dec, 2016 Traumatic brain injury, without LOC, initial encounter S06.9X0A ; Intractable chronic migraine without aura and without status migrainosus G43.719 ; Anxiety F41.9 and Recurrent major depressive disorder, in partial remission F33.41 [facility] [address], [place] [address]- 8699 15 Dec, 2016 [facility] [address] [place] [address] 77932- 0195 11 Dec, 2016 History of traumatic brain injury Z87.820 ; Obsessive- compulsive disorder, unspecified type F42.9 ; Anxiety F41.9 and Recurrent major depressive disorder, in partial remission F33.41 [facility] [address] [place] [id number] [address]- 4084 Dec, Traumatic brain injury, without LOC, initial encounter S06.9X0A [facility] [address] [place] [address] [id number] [address]- 4435 Dec, Anxiety F41.9 and Recurrent major depressive disorder, in partial remission F33.41 [facility] [address] [place] [address] 94280- 3509 02 Dec, 2016 Traumatic brain injury, without LOC, initial encounter S06.9X0A ; Intractable chronic migraine without aura and without status migrainosus G43.719 ; Anxiety F41.9 and Recurrent major depressive disorder, in partial remission F33.41 [facility] [address], [place] [address]- 4421 Dec, [facility] [address] [place] [id number] [place] [address] [id number] Nov, Intractable chronic migraine without aura and without status migrainosus G43.719 [facility], [facility] [address] [place] [id number] Nov, Obsessive-compulsive disorder, unspecified type F42.9 ; Anxiety F41.9 and Intractable chronic migraine without aura and without status migrainosus G43.719 [facility] [address] [id number], [place] [address]- 9066 Nov, Traumatic brain injury, without LOC, initial encounter S06.9X0A ; Intractable chronic migraine without aura and without status migrainosus G43.719 ; Anxiety F41.9 and Recurrent major depressive disorder, in partial remission F33.41 [facility] [address] [place] [address] [place] [id number] Nov, [facility] [address] [id number] [address]- 0518 Nov, Anxiety F41.9 and Recurrent major depressive disorder, in partial remission F33.41 [facility] [address], [place] [address]- 3855 Nov, [facility] [address] [place] [id number] Nov, [facility] [address], [place] [address]- 4816 Oct, [facility] [address] [place] [address] 36779- 4444 Oct, Anxiety F41.9 and Recurrent major depressive disorder, in partial remission F33.41 [facility] [address], [place] [address]- 9325 Oct, [facility] [address] [address]- 7384 September, Anxiety F41.9 and Recurrent major depressive disorder, in partial remission F33.41 [facility] [address], [place] [address]- 5148 September, Traumatic brain injury, without LOC, initial encounter S06.9X0A ; Intractable chronic migraine without aura and without status migrainosus G43.719 ; Anxiety F41.9 and Recurrent major depressive disorder, in partial remission F33.41 [facility] [address], [place] [address]- 2077 September, [facility] [address], [place] [address]- 1541 September, Anxiety F41.9 [facility] [address] [place] [id number] [address]- 8014 September, [facility] [address] [place] [address] [id number] September, Type 2 diabetes mellitus with unspecified complications E11.8 [facility] [id number] [address] September, Type 2 diabetes mellitus with unspecified complications E11.8 [facility], [facility] [address] [place] [address] [id number] September, Essential hypertension I10 and History of traumatic brain injury Z87.820 [place] [address] [place] [id number] [place] [address] 46950- 4056 Aug, [facility], [facility] [address] [place] [address] [id number] Aug, Type 2 diabetes mellitus with unspecified complications E11.8 and Benign prostatic hyperplasia with lower urinary tract symptoms, unspecified morphology N40.1 [facility] [address] [place] [address] [place] [address] [id number] Aug, [place] [address] [place] [id number] [place] [address] 29010- 8386 Aug, [place] [address] [place] [address] [place] [address] 03821990- 9563 Jul, Traumatic brain injury, without LOC, initial encounter S06.9X0A ; Intractable chronic migraine without aura and without status migrainosus G43.719 ; Anxiety F41.9 and Recurrent major depressive disorder, in partial remission F33.41 [place] [address] [place] [address] [place] [address] 39930- 5329 Jul, [place] [address] [place] [id number] [place] [address] 91275- 4892 Jul, [facility] [address] [id number] [place] [address] [id number] Jun, [place] [address] [place] [id number] [place] [address] 96799- 6260 Jun, [place] [address] [place] [id number] [place] [address] 54137- 7488 Jun, [facility], [facility] [address] [place] [address] [id number] Jun, Encounter to establish care Z76.89 [facility] [address] [place] [id number] [place] [address] 38171- 1344 Jun, [place] [address] [address] [place] [address]- 6312 Jun, [facility] [address] [facility] [id number] [address]- 1235 Jun, [facility] [address] [facility] [place] [id number] [address] 2546 Jun, [facility] [address] [place] [address] May, Dental examination Z01.20 [facility] [address] [place] [address] Dec, Dental examination Z01.20 [facility] [address] [place] [address] September, Dental examination Z01.20 [facility] [address] [place] [address] Dec, Dental examination V72.2 [facility] [address], [place] [address]- 5444 Aug, [facility] [address] [id number] [address]- 2899 Aug, [facility] [address] [id number] [address]871 Apr, [facility] [address] [facility] [place] [id number] [address] 2650 Nov, [facility] [id number], [place] [address]- 2040 Nov, [facility] [address] [facility] [place] [id number], [place] [address] 8210 Nov, [facility] [address] [facility] [place] [id number] [address]- 8710 Nov, [facility] [address] [facility] [place] [id number] [address]- 6976 Oct, [facility] [address] [facility] [place] [id number] [address] May, [facility] [address] [facility] [place] [id number] [place] [address] 0[address] May, IMMUNIZATIONS No Known Immunizations SOCIAL HISTORY Never Assessed REASON FOR VISIT Controlled Med Refill PLAN OF CARE VITAL SIGNS MEDICATIONS Medication Instructions Dosage Frequency Start Date End Date Duration Status Morphine Sulfate ER 15 mg Orally Once a day at bedtime 1 tablet Jul, 28 days Active RESULTS No Results PROCEDURES No Known procedures INSTRUCTIONS MEDICATIONS ADMINISTERED No Known Medications MEDICAL (GENERAL) HISTORY Type Description Date Medical History History of traumatic brain injury Subdural hematoma from falling out of bed 2012 Medical History Type 2 diabetes mellitus with unspecified complications Medical History senior care current use of insulin Medical 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
--- OUTSIDE RECORDS SUMMARY | 2018-07-02 11:58 | XMS REPORT ---
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 Active 033300434 Problem Anxiety F41.9 Active 44169565 Problem Benign prostatic hyperplasia with lower urinary tract symptoms, unspecified morphology N40.1 Active 629981951 Problem Persistent migraine aura without cerebral infarction and without status migrainosus, not intractable G43.509 Active 483892067 Problem Intractable chronic migraine without aura and without status migrainosus G43.719 Active 704853688 Problem Type 2 diabetes mellitus with unspecified complications E11.8 Active 39758573 Problem 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 Active 89338713 Problem Chronic pain due to trauma G89.21 Active 760112301 Problem Recurrent major depressive disorder, in partial remission F33.41 Active 50522180 Problem Traumatic brain injury, without LOC, initial encounter S06.9X0A Active 762826188 Problem Rad (reactive airway disease), mild intermittent, uncomplicated J45.20 Active 371992712796 Problem Obsessive-compulsive disorder, unspecified type F42.9 Active 404621783 Problem History of traumatic brain injury Z87.820 Active 66637816436464 Problem Hyperlipidemia, unspecified hyperlipidemia type E78.5 Active 23809050 Problem Anemia, unspecified type D64.9 Active 920241217 Problem History of gout Z87.39 Active 789033074 Problem Glaucoma, unspecified glaucoma, unspecified laterality H40.9 Active 11501526 Problem Herpes B00.9 Active 54387446 Problem Weak urinary stream R39.12 Active 31422112 Problem Gastroesophageal reflux disease without esophagitis K21.9 Active 253191112 ALLERGIES No Information ENCOUNTERS Encounter Location Date Diagnosis [place] [id number] [place] [address] 60880- 7018 Dec, [place] [address] [place] [id number] [place] [address] 13324- 1243 Oct, [facility] [address] [place] [id number] Oct, Excessive anger R45.4 and Obsessive-compulsive disorder, unspecified type F42.9 [place] [address] [address] [id number] [place] [address] 91522- 2508 Oct, Anxiety F41.9 ; Traumatic brain injury, without LOC, initial encounter S06.9X0A ; Intractable chronic migraine without aura and without status migrainosus G43.719 and Recurrent major depressive disorder, in partial remission F33.41 [place] [address] [address] [id number] [place] [address] 50820- 5672 12 Oct, 2017 [place] [address] [address] [id number] [place] [address] 95039- 5348 Oct, [place] [address] [address] [id number] [place] [address] 11346- 8306 04 Oct, 2017 [place] [address] [address] [id number] [place] [address] 59022- 5098 September, Anxiety F41.9 ; Traumatic brain injury, without LOC, initial encounter S06.9X0A ; Intractable chronic migraine without aura and without status migrainosus G43.719 and Recurrent major depressive disorder, in partial remission F33.41 [facility] [address] [place] [id number] September, Weight gain R63.5 and Type 2 diabetes mellitus with unspecified complications E11.8 [place] [address] [address] [id number] [place] [address] 33353- 2770 September, [place] [address] [address] [id number] [place] [address] 51015- 7178 Aug, [facility] [address] [place] [address] Aug, [place] [id number] [place] [id number] [address] Aug, [facility] [address] [address] Jul, Intractable chronic migraine without aura and without status migrainosus G43.719 [facility] [id number] [address] Jul, Intractable chronic migraine without aura and without status migrainosus G43.719 [facility] [address] [place] [id number] Jul, History of traumatic brain injury Z87.820 ; Recurrent major depressive disorder, in partial remission F33.41 and Type 2 diabetes mellitus with unspecified complications E11.8 [facility] [id number] [id number] Jul, [facility] [place] [address] [id number] [address] Jul, Intractable chronic migraine without aura and without status migrainosus G43.719 [facility] [id number] [address] 27[address] Jun, Anxiety F41.9 ; Traumatic brain injury, without LOC, initial encounter S06.9X0A ; Intractable chronic migraine without aura and without status migrainosus G43.719 and Recurrent major depressive disorder, in partial remission F33.41 [facility] [place] [id number] [id number] Jun, [facility] [address] [facility] [id number] [address] 7[address] Jun, [facility] [place] [id number][place] [id number] Jun, Intractable chronic migraine without aura and without status migrainosus G43.719 [facility] [id number] [address] May, [facility] [address] [place] [id number] May, Recurrent major depressive disorder, in partial remission F33.41 ; Traumatic brain injury, without LOC, initial encounter S06.9X0A and Anxiety F41.9 [facility] [address] [id number] May, [facility] [id number] [id number] May, [facility] [id number] [place] [address] 69333- 1762 May, Intractable chronic migraine without aura and without status migrainosus G43.719 [facility] [address] [address] [id number] [place] [address] 81253- 7356 Apr, Anxiety F41.9 ; Traumatic brain injury, without LOC, initial encounter S06.9X0A ; Intractable chronic migraine without aura and without status migrainosus G43.719 and Recurrent major depressive disorder, in partial remission F33.41 [facility] [id number] [address] 1006 Apr, [facility] [id number] [place] [id number] Apr, Intractable chronic migraine without aura and without status migrainosus G43.719 [facility] [id number], [place] [address] 8760 Apr, [facility] [id number], [place] [address] 2480 Apr, [facility] [id number] [id number] Mar, [facility] [id number] [address]6 Mar, [facility] [id number] [address] Mar, [facility] [id number] [place] [address] 29259- 9628 Mar, Intractable chronic migraine without aura and without status migrainosus G43.719 [facility] [address] [place] [id number] Mar, Encounter for examination for admission to shelter Z02.2 ; History of traumatic brain injury Z87.820 ; Recurrent major depressive disorder, in partial remission F33.41 ; Anxiety F41.9 ; Obsessive-compulsive disorder, unspecified type F42.9 ; Essential hypertension I10 and Type 2 diabetes mellitus with unspecified complications E11.8 [facility] [place] [id number] [place] [id number] Feb, [place] [address] [place] [address] 26028- 8055 Feb, Obsessive-compulsive disorder, unspecified type F42.9 ; Anxiety F41.9 and Recurrent major depressive disorder, in partial remission F33.41 [place] [address] [place] [address] 98613- 0847 Jan, Traumatic brain injury, without LOC, initial encounter S06.9X0A ; Intractable chronic migraine without aura and without status migrainosus G43.719 ; Anxiety F41.9 and Recurrent major depressive disorder, in partial remission F33.41 [place] [id number] [address] 4195 Jan, Intractable chronic migraine without aura and without status migrainosus G43.719 [place] [address] [place] [address] [id number] [place] [address] 95488- 0067 Jan, History of traumatic brain injury Z87.820 ; Anxiety F41.9 and Recurrent major depressive disorder, in partial remission F33.41 [place] [address] [place] [address] 71979- 6906 13 Jan, 2017 [facility] [address] [place] [id number] 07 Jan, 2017 History of traumatic brain injury Z87.820 and Obsessive-compulsive disorder, unspecified type F42.9 [place] [address] [address] [id number] [address]- 5966 06 Jan, 2017 Traumatic brain injury, without LOC, initial encounter S06.9X0A ; Intractable chronic migraine without aura and without status migrainosus G43.719 ; Anxiety F41.9 and Recurrent major depressive disorder, in partial remission F33.41 [facility] [address], [place] [address]- 8325 05 Jan, 2017 History of traumatic brain injury Z87.820 ; Obsessive- compulsive disorder, unspecified type F42.9 ; Anxiety F41.9 and Recurrent major depressive disorder, in partial remission F33.41 [facility] [place] [address] [place] [address] [id number] [place] [address] [id number] 31 Dec, 2016 [facility] [place] [address] [place] [id number] [place] [address] [id number] Dec, Intractable chronic migraine without aura and without status migrainosus G43.719 [facility] [address] [place] [id number] Dec, Type 2 diabetes mellitus with unspecified complications E11.8 and Essential hypertension I10 [facility] [address] [place] [address] 02993- 7454 18 Dec, 2016 Traumatic brain injury, without LOC, initial encounter S06.9X0A [facility] [id number] [address]- 8483 16 Dec, 2016 Traumatic brain injury, without LOC, initial encounter S06.9X0A ; Intractable chronic migraine without aura and without status migrainosus G43.719 ; Anxiety F41.9 and Recurrent major depressive disorder, in partial remission F33.41 [facility] [address], [place] [address]- 8132 15 Dec, 2016 [facility] [address] [place] [address] 80738- 9549 11 Dec, 2016 History of traumatic brain injury Z87.820 ; Obsessive- compulsive disorder, unspecified type F42.9 ; Anxiety F41.9 and Recurrent major depressive disorder, in partial remission F33.41 [facility] [id number], [place] [address]- 9551 Dec, Traumatic brain injury, without LOC, initial encounter S06.9X0A [facility] [id number], [place] [address]- 6844 Dec, Anxiety F41.9 and Recurrent major depressive disorder, in partial remission F33.41 [facility] [address] [place] [address] [id number] [place] [address] 80164- 4948 Dec, Traumatic brain injury, without LOC, initial encounter S06.9X0A ; Intractable chronic migraine without aura and without status migrainosus G43.719 ; Anxiety F41.9 and Recurrent major depressive disorder, in partial remission F33.41 [facility] [address], [place] [address]- 7832 Dec, [facility] [place] [address] [id number] [place] [address] [id number] Nov, Intractable chronic migraine without aura and without status migrainosus G43.719 [facility] [address] [place] [id number] Nov, Obsessive-compulsive disorder, unspecified type F42.9 ; Anxiety F41.9 and Intractable chronic migraine without aura and without status migrainosus G43.719 [facility] [id number] [address]- 0338 Nov, Traumatic brain injury, without LOC, initial encounter S06.9X0A ; Intractable chronic migraine without aura and without status migrainosus G43.719 ; Anxiety F41.9 and Recurrent major depressive disorder, in partial remission F33.41 [facility] [place] [id number] [place] [address] [id number] Nov, [facility] [id number], [place] [address]- 1738 Nov, Anxiety F41.9 and Recurrent major depressive disorder, in partial remission F33.41 [facility] [id number] [address]- 6871 Nov, [facility] [place] [id number] [place] [address] [id number] Nov, [facility] [address], [place] [address]- 6144 Oct, [facility] [address] [place] [address] 53622- 2732 Oct, Anxiety F41.9 and Recurrent major depressive disorder, in partial remission F33.41 [facility] [address] [address]- 3111 Oct, [facility] [address] [place] [address] 91106- 1671 September, Anxiety F41.9 and Recurrent major depressive disorder, in partial remission F33.41 [facility] [address], [place] [address]- 7580 September, Traumatic brain injury, without LOC, initial encounter S06.9X0A ; Intractable chronic migraine without aura and without status migrainosus G43.719 ; Anxiety F41.9 and Recurrent major depressive disorder, in partial remission F33.41 [facility] [address], [place] [address]- 7634 September, [facility] [address], [place] [address]- 8159 September, Anxiety F41.9 [facility] [id number] [address] September, [facility] [place] [id number] [place] [address] [id number] September, Type 2 diabetes mellitus with unspecified complications E11.8 [facility] [place] [id number] [id number] September, Type 2 diabetes mellitus with unspecified complications E11.8 [facility] [address] [place] [address] September, Essential hypertension I10 and History of traumatic brain injury Z87.820 [facility] [id number] [place] [address] 12794- 7997 Aug, [facility] [address] [place] [id number] Aug, Type 2 diabetes mellitus with unspecified complications E11.8 and Benign prostatic hyperplasia with lower urinary tract symptoms, unspecified morphology N40.1 [facility] [place] [address] [id number] Aug, [facility] [id number] [place] [address] 58518- 1812 Aug, [place] [address] [id number] [place] [address] 45777- 9880 Jul, Traumatic brain injury, without LOC, initial encounter S06.9X0A ; Intractable chronic migraine without aura and without status migrainosus G43.719 ; Anxiety F41.9 and Recurrent major depressive disorder, in partial remission F33.41 [facility] [address] [address] [id number] [place] [address] 13799- 1090 Jul, [place] [address] [id number] [place] [address] 99431- 0595 Jul, [facility] [place] [id number] [place] [address] [id number] Jun, [facility] [address] [id number] [place] [address] 74588- 9065 Jun, [facility] [address] [address] [id number] [place] [address] 06596- 1055 Jun, [facility] [address] [place] [id number] Jun, Encounter to establish care Z76.89 [facility] [address] [place] [address] [id number] [place] [address] 14374- 6004 Jun, [facility] [address] [place] [address] 2546 Jun, [facility] [address] [id number] [address] 2546 Jun, [facility] [address] [facility] [id number] [address] 2546 Jun, [facility] [address] [place] [address] May, Dental examination Z01.20 [facility] [address] [facility] [place] [address] Dec, Dental examination Z01.20 [facility] [address] [place] [address] September, Dental examination Z01.[address] [facility] [address] [place] [address] Dec, Dental examination V72.2 [facility] [id number] [address]- 9856 Aug, [facility] [address] [facility] [id number] [address]- 3276 Aug, [facility] [address] [facility] [id number] [address]- 2727 Apr, [facility] [address] [facility] [id number] [address]- 3966 Nov, [facility] [id number], [place] [address]- 2488 Nov, [facility] [address] [facility] [id number] [address]- 5800 Nov, [facility] [address] [facility] [id number] [address]- 8119 Nov, [facility] [address] [facility] [id number] [address]- 9016 Oct, [facility] [address] [facility] [id number] [address] 2546 May, [facility] [address] [facility] [id number] [place] [address]- 2307 May, IMMUNIZATIONS No Known Immunizations SOCIAL HISTORY Never Assessed REASON FOR VISIT routine visit PLAN OF CARE Activity Details Follow Up 2 Months Reason: VITAL SIGNS MEDICATIONS Unknown Medications RESULTS No Results PROCEDURES Procedure Date Ordered Result Body Site Stable Visit (10 minutes) August 05, 2017 INSTRUCTIONS MEDICATIONS ADMINISTERED No Known Medications MEDICAL (GENERAL) HISTORY Type Description Date Medical History History of traumatic brain injury Subdural hematoma from falling out of bed 2012 Medical History Type 2 diabetes mellitus with unspecified complications Medical 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
--- OUTSIDE RECORDS SUMMARY | 2018-07-02 11:58 | XMS REPORT ---
Author Author NICK FONSECA Organization [facility] Address [address] [place] [address] Care Team Providers Care Custom Bookbinder Name Role Phone NICK FONSECA Unavailable PROBLEMS Type Condition ICD9-CM Code SAC98-TD Code Onset Dates Condition Status SNOMED Code Problem Essential hypertension I10 Active 65734409 Problem group home current use of insulin Z79.4 Active 313498059 Problem Anxiety F41.9 Active 53947827 Problem Benign prostatic hyperplasia with lower urinary tract symptoms, unspecified morphology N40.1 Active 319576790 Problem Persistent migraine aura without cerebral infarction and without status migrainosus, not intractable G43.509 Active 016856437 Problem Intractable chronic migraine without aura and without status migrainosus G43.719 Active 515466194 Problem Type 2 diabetes mellitus with unspecified complications E11.8 Active 49707939 Problem 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 Active 95482406 Problem Chronic pain due to trauma G89.21 Active 632542195 Problem Recurrent major depressive disorder, in partial remission F33.41 Active 08077672 Problem Traumatic brain injury, without LOC, initial encounter S06.9X0A Active 215244417 Problem Rad (reactive airway disease), mild intermittent, uncomplicated J45.20 Active 977453787724 Problem Obsessive-compulsive disorder, unspecified type F42.9 Active 965835229 Problem History of traumatic brain injury Z87.820 Active 46548917326766 Problem Hyperlipidemia, unspecified hyperlipidemia type E78.5 Active 43832001 Problem Anemia, unspecified type D64.9 Active 270299141 Problem History of gout Z87.39 Active 003084210 Problem Glaucoma, unspecified glaucoma, unspecified laterality H40.9 Active 14565682 Problem Herpes B00.9 Active 97115279 Problem Weak urinary stream R39.12 Active 86496223 Problem Gastroesophageal reflux disease without esophagitis K21.9 Active 079866391 ALLERGIES No Information ENCOUNTERS Encounter Location Date Diagnosis [place] [id number] [place] [address]17- [address] Dec, [place] [address] [address] Oct, [facility] [address] [place] [id number] Oct, Excessive anger R45.4 and Obsessive-compulsive disorder, unspecified type F42.9 [place] [address] [place] [id number] [place] [address]72- 1444 Oct, Anxiety F41.9 ; Traumatic brain injury, without LOC, initial encounter S06.9X0A ; Intractable chronic migraine without aura and without status migrainosus G43.719 and Recurrent major depressive disorder, in partial remission F33.41 [place] [address] [place] [id number] [place] [address] 40861- [address] 12 Oct, 2017 [place] [address] [place] [id number] [place] [address] 89447- 1450 05 Oct, 2017 [place] [address] [place] [id number] [place] [address] 44233- 2094 04 Oct, 2017 [place] [address] [place] [id number] [place] [address] 90616- 1434 September, Anxiety F41.9 ; Traumatic brain injury, without LOC, initial encounter S06.9X0A ; Intractable chronic migraine without aura and without status migrainosus G43.719 and Recurrent major depressive disorder, in partial remission F33.41 [facility] [address] [place] [id number] September, Weight gain R63.5 and Type 2 diabetes mellitus with unspecified complications E11.8 [place] [address] [address] September, [place] [address] [place] [id number] [place] [address] 28254- 4789 Aug, [facility] [address] [place] [address] Aug, [facility] [address] [place] [id number] [address] Aug, [facility] [address] [address] Jul, Intractable chronic migraine without aura and without status migrainosus G43.719 [facility] [address] [place] [id number] [address] Jul, Intractable chronic migraine without aura and without status migrainosus G43.719 [facility] [address] [place] [id number] Jul, History of traumatic brain injury Z87.820 ; Recurrent major depressive disorder, in partial remission F33.41 and Type 2 diabetes mellitus with unspecified complications E11.8 [facility] [id number] [id number] Jul, [facility] [address] [place] [id number] [place] [id number] Jul, Intractable chronic migraine without aura and without status migrainosus G43.719 [facility] [address] [place] [id number] [address] Jun, Anxiety F41.9 ; Traumatic brain injury, without LOC, initial encounter S06.9X0A ; Intractable chronic migraine without aura and without status migrainosus G43.719 and Recurrent major depressive disorder, in partial remission F33.41 [facility] [id number] [address] Jun, [facility] [address] [place] [id number], [place] [address] Jun, [facility] [address] [place] [id number] [id number] Jun, Intractable chronic migraine without aura and without status migrainosus G43.719 [facility] [address] [place] [id number], [place] [address] May, [facility] [address] [place] [id number] May, Recurrent major depressive disorder, in partial remission F33.41 ; Traumatic brain injury, without LOC, initial encounter S06.9X0A and Anxiety F41.9 [facility] [address] [id number], [place] [address] May, [facility] [address] [id number] [address] May, [facility] [address] [place] [id number] [address] May, Intractable chronic migraine without aura and without status migrainosus G43.719 [facility] [address] [facility] [id number], [place] [address] Apr, Anxiety F41.9 ; Traumatic brain injury, without LOC, initial encounter S06.9X0A ; Intractable chronic migraine without aura and without status migrainosus G43.719 and Recurrent major depressive disorder, in partial remission F33.41 [facility] [address] [id number], [place] [address] Apr, [facility] [id number] [place] [id number] Apr, Intractable chronic migraine without aura and without status migrainosus G43.719 [facility] [address] [place] [id number], [place] [address] Apr, [facility] [address] [place] [id number] [address] Apr, [facility] [address] [place] [id number] [address] Mar, [facility] [address] [id number] [address] Mar, [facility] [address] [place] [id number] [address] Mar, [facility] [address] [place] [address] 30481- 2060 14 Mar, 2017 Intractable chronic migraine without aura and without status migrainosus G43.719 [facility] [address] [place] [id number] Mar, Encounter for examination for admission to jail Z02.2 ; History of traumatic brain injury Z87.820 ; Recurrent major depressive disorder, in partial remission F33.41 ; Anxiety F41.9 ; Obsessive-compulsive disorder, unspecified type F42.9 ; Essential hypertension I10 and Type 2 diabetes mellitus with unspecified complications E11.8 [facility] [address] [id number] [place] [id number] Feb, [place] [address] [place] [id number] [place] [address] 06496- 1115 Feb, Obsessive-compulsive disorder, unspecified type F42.9 ; Anxiety F41.9 and Recurrent major depressive disorder, in partial remission F33.41 [place] [address] [place] [id number] [place] [address] 47147- 1467 27 Jan, 2017 Traumatic brain injury, without LOC, initial encounter S06.9X0A ; Intractable chronic migraine without aura and without status migrainosus G43.719 ; Anxiety F41.9 and Recurrent major depressive disorder, in partial remission F33.41 [place] [address] [place] [address] 55824- 9015 20 Jan, 2017 Intractable chronic migraine without aura and without status migrainosus G43.719 [facility] [address] [place] [address] 36672- 0185 19 Jan, 2017 History of traumatic brain injury Z87.820 ; Anxiety F41.9 and Recurrent major depressive disorder, in partial remission F33.41 [facility] [address] [place] [address] 50275- 1231 13 Jan, 2017 [facility] [address] [place] [id number] 07 Jan, 2017 History of traumatic brain injury Z87.820 and Obsessive-compulsive disorder, unspecified type F42.9 [place] [address] [id number], [place] [address] 06 Jan, 2017 Traumatic brain injury, without LOC, initial encounter S06.9X0A ; Intractable chronic migraine without aura and without status migrainosus G43.719 ; Anxiety F41.9 and Recurrent major depressive disorder, in partial remission F33.41 [facility] [address], [place] [address] 05 Jan, 2017 History of traumatic brain injury Z87.820 ; Obsessive- compulsive disorder, unspecified type F42.9 ; Anxiety F41.9 and Recurrent major depressive disorder, in partial remission F33.41 [facility] [address] [id number] [place] [id number] 31 Dec, 2016 [facility] [address] [id number] [place] [id number] 28 Dec, 2016 Intractable chronic migraine without aura and without status migrainosus G43.719 [facility] [address] [place] [address] Dec, Type 2 diabetes mellitus with unspecified complications E11.8 and Essential hypertension I10 [facility] [address], [place] [address]- [address] 18 Dec, 2016 Traumatic brain injury, without LOC, initial encounter S06.9X0A [facility] [address] [id number], [place] [address]- 1874 16 Dec, 2016 Traumatic brain injury, without LOC, initial encounter S06.9X0A ; Intractable chronic migraine without aura and without status migrainosus G43.719 ; Anxiety F41.9 and Recurrent major depressive disorder, in partial remission F33.41 [facility] [address], [place] [address]- 8118 15 Dec, 2016 [facility] [address] [place] [address] 39651- 9000 11 Dec, 2016 History of traumatic brain injury Z87.820 ; Obsessive- compulsive disorder, unspecified type F42.9 ; Anxiety F41.9 and Recurrent major depressive disorder, in partial remission F33.41 [facility] [address] [id number], [place] [address]- 2672 Dec, Traumatic brain injury, without LOC, initial encounter S06.9X0A [facility] [address] [place] [id number], [place] [address]- 4935 Dec, Anxiety F41.9 and Recurrent major depressive disorder, in partial remission F33.41 [facility] [address] [place] [address] 01214- 5594 02 Dec, 2016 Traumatic brain injury, without LOC, initial encounter S06.9X0A ; Intractable chronic migraine without aura and without status migrainosus G43.719 ; Anxiety F41.9 and Recurrent major depressive disorder, in partial remission F33.41 [facility] [address], [place] [address]- 7020 Dec, [facility] [address] [id number] [place] [id number] Nov, Intractable chronic migraine without aura and without status migrainosus G43.719 [facility] [address] [place] [id number] Nov, Obsessive-compulsive disorder, unspecified type F42.9 ; Anxiety F41.9 and Intractable chronic migraine without aura and without status migrainosus G43.719 [facility] [address] [place] [id number], [place] [address]- 0238 Nov, Traumatic brain injury, without LOC, initial encounter S06.9X0A ; Intractable chronic migraine without aura and without status migrainosus G43.719 ; Anxiety F41.9 and Recurrent major depressive disorder, in partial remission F33.41 [facility] [address] [id number] [id number] Nov, [facility] [address] [id number], [place] [address]- 7711 Nov, Anxiety F41.9 and Recurrent major depressive disorder, in partial remission F33.41 [facility] [address], [place] [address]- 5399 Nov, [facility] [address] [id number] [id number] Nov, [facility] [address], [place] [address]- 6122 Oct, [facility] [address] [place] [address] 93766- 1450 Oct, Anxiety F41.9 and Recurrent major depressive disorder, in partial remission F33.41 [facility] [address], [place] [address]- 8580 Oct, [facility] [address], [place] [address]- 4212 September, Anxiety F41.9 and Recurrent major depressive disorder, in partial remission F33.41 [facility] [address], [place] [address]- 8470 September, Traumatic brain injury, without LOC, initial encounter S06.9X0A ; Intractable chronic migraine without aura and without status migrainosus G43.719 ; Anxiety F41.9 and Recurrent major depressive disorder, in partial remission F33.41 [facility] [address], [place] [address]- 7830 September, [facility] [address], [place] [address]- 8030 September, Anxiety F41.9 [facility] [address] [place] [id number], [place] [address]- 6000 September, [facility] [address] [id number] [id number] September, Type 2 diabetes mellitus with unspecified complications E11.8 [facility] [id number] [id number] September, Type 2 diabetes mellitus with unspecified complications E11.8 [facility] [address] [place] [address] [id number] September, Essential hypertension I10 and History of traumatic brain injury Z87.820 [place] [address] [place] [id number] [place] [address] 45454- 4240 Aug, [facility] [address] [place] [id number] Aug, Type 2 diabetes mellitus with unspecified complications E11.8 and Benign prostatic hyperplasia with lower urinary tract symptoms, unspecified morphology N40.1 [facility] [address] [place] [id number] [place] [address] [id number] Aug, [place] [address] [place] [id number] [place] [address] 67284- 2425 Aug, [place] [address] [place] [id number] [place] [address] 48399626- 3344 Jul, Traumatic brain injury, without LOC, initial encounter S06.9X0A ; Intractable chronic migraine without aura and without status migrainosus G43.719 ; Anxiety F41.9 and Recurrent major depressive disorder, in partial remission F33.41 [place] [address] [place] [id number] [place] [address] 47050- 7835 Jul, [place] [address] [place] [id number] [place] [address] 84286- 8015 Jul, [facility] [address] [id number] [place] [address] [id number] Jun, [place] [address] [place] [id number] [place] [address] 31499- 2905 Jun, [place] [address] [place] [id number] [place] [address] 81045- 3300 Jun, [facility] [address] [place] [address] [id number] Jun, Encounter to establish care Z76.89 [facility] [address] [id number] [place] [address] 20343- 6136 Jun, [place] [address] [id number], [place] [address]- 4995 Jun, [facility] [address] [facility] [id number], [place] [address]- 2437 Jun, [facility] [address] [facility] [id number], [place] [address] 2546 Jun, [facility] [address] [place] [address] May, Dental examination Z01.20 [facility] [address] [place] [address] Dec, Dental examination Z01.20 [facility] [address] [place] [address] September, Dental examination Z01.20 [facility] [address] [place] [address] Dec, Dental examination V72.2 [facility] [address], [place] [address]- 3958 Aug, [facility] [address] [place] [id number], [place] [address]- 4758 Aug, [facility] [address] [place] [id number] [address] 9027 Apr, [facility] [address] [facility] [id number], [place] [address]- 3246 Nov, [facility] [address] [place] [id number], [place] [address]- 4232 Nov, [facility] [address] [facility] [id number], [place] [address]- 5557 Nov, [facility] [address] [facility] [id number], [place] [address]- 7397 Nov, [facility] [address] [facility] [id number], [place] [address] Oct, [facility] [address] [facility] [id number], [place] [address]- 5720 May, [facility] [address] [facility] [id number] [place] [address]80 May, IMMUNIZATIONS No Known Immunizations SOCIAL HISTORY Never Assessed REASON FOR VISIT Dc Morphine PLAN OF CARE VITAL SIGNS MEDICATIONS Unknown [...]
--- OUTSIDE RECORDS SUMMARY | 2018-07-02 11:58 | XMS REPORT ---
Author Author NICK FONSECA Organization [facility] Address [address] [place] [address] Care Team Providers Care Assistant Store Manager Sales Name Role Phone NICK FONSECA Unavailable PROBLEMS Type Condition ICD9-CM Code UVJ22-LZ Code Onset Dates Condition Status SNOMED Code Problem Essential hypertension I10 Active 03284666 Problem half-way current use of insulin Z79.4 Active 321526294 Problem Anxiety F41.9 Active 85958366 Problem Benign prostatic hyperplasia with lower urinary tract symptoms, unspecified morphology N40.1 Active 128355287 Problem Persistent migraine aura without cerebral infarction and without status migrainosus, not intractable G43.509 Active 092047702 Problem Intractable chronic migraine without aura and without status migrainosus G43.719 Active 987831659 Problem Type 2 diabetes mellitus with unspecified complications E11.8 Active 01309835 Problem 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 Active 79982561 Problem Chronic pain due to trauma G89.21 Active 335126622 Problem Recurrent major depressive disorder, in partial remission F33.41 Active 42685164 Problem Traumatic brain injury, without LOC, initial encounter S06.9X0A Active 054586642 Problem Rad (reactive airway disease), mild intermittent, uncomplicated J45.20 Active 685058262792 Problem Obsessive-compulsive disorder, unspecified type F42.9 Active 066368386 Problem History of traumatic brain injury Z87.820 Active 05159182123798 Problem Hyperlipidemia, unspecified hyperlipidemia type E78.5 Active 62983530 Problem Anemia, unspecified type D64.9 Active 839229753 Problem History of gout Z87.39 Active 928621617 Problem Glaucoma, unspecified glaucoma, unspecified laterality H40.9 Active 73296283 Problem Herpes B00.9 Active 45097571 Problem Weak urinary stream R39.12 Active 48426462 Problem Gastroesophageal reflux disease without esophagitis K21.9 Active 107459014 ALLERGIES No Information ENCOUNTERS Encounter Location Date Diagnosis [place] [id number] [place] [address]39- 4431 Dec, [place] [address] [address] Oct, [facility] [address] [place] [id number] Oct, Excessive anger R45.4 and Obsessive-compulsive disorder, unspecified type F42.9 [place] [address] [place] [address] [id number] [place] [address] 10133- 3030 Oct, Anxiety F41.9 ; Traumatic brain injury, without LOC, initial encounter S06.9X0A ; Intractable chronic migraine without aura and without status migrainosus G43.719 and Recurrent major depressive disorder, in partial remission F33.41 [place] [address] [place] [id number] [place] [address] 98002- 0300 12 Oct, 2017 [place] [address] [place] [address] [id number] [place] [address] 18987- 8965 05 Oct, 2017 [place] [address] [id number] [place] [address] 01228- 9306 04 Oct, 2017 [place] [address] [address] [id number] [place] [address] 28116- 1023 September, Anxiety F41.9 ; Traumatic brain injury, without LOC, initial encounter S06.9X0A ; Intractable chronic migraine without aura and without status migrainosus G43.719 and Recurrent major depressive disorder, in partial remission F33.41 [facility] [address] [place] [id number] September, Weight gain R63.5 and Type 2 diabetes mellitus with unspecified complications E11.8 [place] [address] [place] [id number] [place] [address] 87000- 0710 September, [place] [address] [address] [id number] [place] [address] 74248- 4158 Aug, [facility] [address] [place] [id number] Aug, [facility] [id number] [address] Aug, [facility] [address], [place] [address] Jul, Intractable chronic migraine without aura and without status migrainosus G43.719 [facility] [id number] [id number] Jul, Intractable chronic migraine without aura and without status migrainosus G43.719 [facility] [address] [place] [id number] Jul, History of traumatic brain injury Z87.820 ; Recurrent major depressive disorder, in partial remission F33.41 and Type 2 diabetes mellitus with unspecified complications E11.8 [facility] [id number] [id number] Jul, [facility] [id number] [address] Jul, Intractable chronic migraine without aura and without status migrainosus G43.719 [facility] [id number] [address] Jun, Anxiety F41.9 ; Traumatic brain injury, without LOC, initial encounter S06.9X0A ; Intractable chronic migraine without aura and without status migrainosus G43.719 and Recurrent major depressive disorder, in partial remission F33.41 [facility] [id number] [id number] Jun, [facility] [id number] [address] Jun, [facility] [id number] [id number] Jun, Intractable chronic migraine without aura and without status migrainosus G43.719 [facility] [id number], [place] [address] 14[address] May, [facility] [address] [place] [id number] May, Recurrent major depressive disorder, in partial remission F33.41 ; Traumatic brain injury, without LOC, initial encounter S06.9X0A and Anxiety F41.9 [facility] [id number], [place] [address] May, [facility] [address] [place] [id number] [id number] May, [facility] [id number] [address] May, Intractable chronic migraine without aura and without status migrainosus G43.719 [facility] [address] [facility] [id number], [place] [address]74 Apr, Anxiety F41.9 ; Traumatic brain injury, without LOC, initial encounter S06.9X0A ; Intractable chronic migraine without aura and without status migrainosus G43.719 and Recurrent major depressive disorder, in partial remission F33.41 [facility] [id number], [place] [address] 67[address] Apr, [facility] [id number] [place] [id number] Apr, Intractable chronic migraine without aura and without status migrainosus G43.719 [facility] [id number], [place] [address] 2[address] Apr, [facility] [id number] [address] Apr, [facility] [address] [place] [address] [id number] [id number] Mar, [facility] [id number] [address] Mar, [facility] [address] [place] [address] [id number] [id number] Mar, [facility] [address] [place] [address] 26951- 5336 14 Mar, 2017 Intractable chronic migraine without aura and without status migrainosus G43.719 [facility] [address] [place] [id number] Mar, Encounter for examination for admission to [facility] Z02.2 ; History of traumatic brain injury Z87.820 ; Recurrent major depressive disorder, in partial remission F33.41 ; Anxiety F41.9 ; Obsessive-compulsive disorder, unspecified type F42.9 ; Essential hypertension I10 and Type 2 diabetes mellitus with unspecified complications E11.8 [facility] [id number] [place] [id number] Feb, [place] [address] [place] [id number] [place] [address] 46411- 5673 Feb, Obsessive-compulsive disorder, unspecified type F42.9 ; Anxiety F41.9 and Recurrent major depressive disorder, in partial remission F33.41 [place] [address] [place] [id number] [place] [address] 99753- 3948 27 Jan, 2017 Traumatic brain injury, without LOC, initial encounter S06.9X0A ; Intractable chronic migraine without aura and without status migrainosus G43.719 ; Anxiety F41.9 and Recurrent major depressive disorder, in partial remission F33.41 [place] [address] [place] [address] 49774- 4498 20 Jan, 2017 Intractable chronic migraine without aura and without status migrainosus G43.719 [facility] [address] [place] [address] 25953- 1048 19 Jan, 2017 History of traumatic brain injury Z87.820 ; Anxiety F41.9 and Recurrent major depressive disorder, in partial remission F33.41 [facility] [address] [place] [address] 28708- 1430 13 Jan, 2017 [facility] [address] [place] [id number] 07 Jan, 2017 History of traumatic brain injury Z87.820 and Obsessive-compulsive disorder, unspecified type F42.9 [place] [address] [place] [id number], [place] [address] 06 Jan, 2017 Traumatic brain injury, without LOC, initial encounter S06.9X0A ; Intractable chronic migraine without aura and without status migrainosus G43.719 ; Anxiety F41.9 and Recurrent major depressive disorder, in partial remission F33.41 [facility] [address], [place] [address] 6[address] 05 Jan, 2017 History of traumatic brain injury Z87.820 ; Obsessive- compulsive disorder, unspecified type F42.9 ; Anxiety F41.9 and Recurrent major depressive disorder, in partial remission F33.41 [facility] [id number] [place] [id number] 31 Dec, 2016 [facility] [id number] [place] [address] [id number] 28 Dec, 2016 Intractable chronic migraine without aura and without status migrainosus G43.719 [facility] [address] [place] [id number] Dec, Type 2 diabetes mellitus with unspecified complications E11.8 and Essential hypertension I10 [facility] [address], [place] [address] 4[address] 18 Dec, 2016 Traumatic brain injury, without LOC, initial encounter S06.9X0A [facility] [address] [id number], [place] [address]- 6403 16 Dec, 2016 Traumatic brain injury, without LOC, initial encounter S06.9X0A ; Intractable chronic migraine without aura and without status migrainosus G43.719 ; Anxiety F41.9 and Recurrent major depressive disorder, in partial remission F33.41 [facility] [address], [place] [address]- 1014 15 Dec, 2016 [facility] [address] [place] [address] 88463- 2640 11 Dec, 2016 History of traumatic brain injury Z87.820 ; Obsessive- compulsive disorder, unspecified type F42.9 ; Anxiety F41.9 and Recurrent major depressive disorder, in partial remission F33.41 [facility] [id number], [place] [address]- 2828 Dec, Traumatic brain injury, without LOC, initial encounter S06.9X0A [facility] [id number], [place] [address]- 2654 Dec, Anxiety F41.9 and Recurrent major depressive disorder, in partial remission F33.41 [facility] [address] [place] [address] 31259- 3304 02 Dec, 2016 Traumatic brain injury, without LOC, initial encounter S06.9X0A ; Intractable chronic migraine without aura and without status migrainosus G43.719 ; Anxiety F41.9 and Recurrent major depressive disorder, in partial remission F33.41 [facility] [address], [place] [address]- 8615 Dec, [facility] [id number] [place] [address] [id number] Nov, Intractable chronic migraine without aura and without status migrainosus G43.719 [facility] [address] [place] [id number] Nov, Obsessive-compulsive disorder, unspecified type F42.9 ; Anxiety F41.9 and Intractable chronic migraine without aura and without status migrainosus G43.719 [facility] [id number], [place] [address]- 1031 Nov, Traumatic brain injury, without LOC, initial encounter S06.9X0A ; Intractable chronic migraine without aura and without status migrainosus G43.719 ; Anxiety F41.9 and Recurrent major depressive disorder, in partial remission F33.41 [facility] [address] [place] [address] [id number] [id number] Nov, [facility] [id number], [place] [address]- 5154 Nov, Anxiety F41.9 and Recurrent major depressive disorder, in partial remission F33.41 [facility] [address], [place] [address]- 7507 Nov, [facility] [address] [address] [id number] [id number] Nov, [facility] [address], [place] [address]- 7010 Oct, [facility] [address] [place] [address] 04625- 3399 Oct, Anxiety F41.9 and Recurrent major depressive disorder, in partial remission F33.41 [facility] [address], [place] [address]- 4716 Oct, [facility] [address], [place] [address]- 7389 September, Anxiety F41.9 and Recurrent major depressive disorder, in partial remission F33.41 [facility] [address], [place] [address]- 3185 September, Traumatic brain injury, without LOC, initial encounter S06.9X0A ; Intractable chronic migraine without aura and without status migrainosus G43.719 ; Anxiety F41.9 and Recurrent major depressive disorder, in partial remission F33.41 [facility] [address], [place] [address]- 6768 September, [facility] [address], [place] [address]- 6836 September, Anxiety F41.9 [facility] [id number], [place] [address]- 0104 September, [facility] [address] [address] [id number] [id number] September, Type 2 diabetes mellitus with unspecified complications E11.8 [facility] [id number] [id number] September, Type 2 diabetes mellitus with unspecified complications E11.8 [facility] [address] [place] [address] [id number] September, Essential hypertension I10 and History of traumatic brain injury Z87.820 [place] [address] [place] [id number] [place] [address] 68997- 5038 Aug, [facility] [address] [place] [address] [id number] Aug, Type 2 diabetes mellitus with unspecified complications E11.8 and Benign prostatic hyperplasia with lower urinary tract symptoms, unspecified morphology N40.1 [facility] [address] [place] [id number] [place] [address] [id number] Aug, [place] [address] [place] [id number] [place] [address] 48858- 2557 Aug, [place] [address] [place] [address] [id number] [place] [address] [id number]- 7176 Jul, Traumatic brain injury, without LOC, initial encounter S06.9X0A ; Intractable chronic migraine without aura and without status migrainosus G43.719 ; Anxiety F41.9 and Recurrent major depressive disorder, in partial remission F33.41 [place] [address] [place] [address] [id number] [place] [address] 48129- 0957 Jul, [place] [address] [place] [id number] [place] [address] 52759- 6321 Jul, [facility] [id number] [place] [address] [id number] Jun, [place] [address] [place] [id number] [place] [address] 52650- 8573 Jun, [place] [address] [id number] [place] [address] 88849- 2393 Jun, [facility] [address] [place] [address] [id number] Jun, Encounter to establish care Z76.89 [facility] [id number] [place] [address] 60124- 6767 Jun, [place] [id number], [place] [address] 2546 Jun, [facility] [id number], [place] [address] 2546 Jun, [facility] [id number], [place] [address]- 2546 Jun, [facility] [address] [place] [id number] May, Dental examination Z01.20 [facility] [address] [place] [address] [id number] Dec, Dental examination Z01.20 [facility] [address] [place] [address] [phone] September, Dental examination Z01.20 [facility] [address] [place] [id number] Dec, Dental examination V72.2 [facility] [address], [place] [address]- 2186 Aug, [facility] [place] [address], [place] [address]- 3957 Aug, [facility] [id number], [place] [address]- 5456 Apr, [facility] [id number], [place] [address]- 4116 Nov, [facility] [id number], [place] [address]- 6701 Nov, [facility] [id number] 7567 Nov, [facility] [address] [facility] [id number], [place] [address]- 0236 Nov, [facility] [address] [facility] [id number], [place] [address]- 9762 Oct, [facility] [id number], [place] [address]- 8446 May, [facility] [address] [facility] [id number] [address] May, IMMUNIZATIONS No Known Immunizations SOCIAL HISTORY [...] mellitus with unspecified complications 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
--- OUTSIDE RECORDS SUMMARY | 2018-07-02 11:59 | XMS REPORT ---
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 Active 261125150 Problem Anxiety F41.9 Active 22346535 Problem Benign prostatic hyperplasia with lower urinary tract symptoms, unspecified morphology N40.1 Active 699998324 Problem Persistent migraine aura without cerebral infarction and without status migrainosus, not intractable G43.509 Active 851523710 Problem Intractable chronic migraine without aura and without status migrainosus G43.719 Active 975484089 Problem Type 2 diabetes mellitus with unspecified complications E11.8 Active 02761656 Problem 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 Active 60495987 Problem Chronic pain due to trauma G89.21 Active 561316874 Problem Recurrent major depressive disorder, in partial remission F33.41 Active 11286141 Problem Traumatic brain injury, without LOC, initial encounter S06.9X0A Active 695349459 Problem Rad (reactive airway disease), mild intermittent, uncomplicated J45.20 Active 789170064543 Problem Obsessive-compulsive disorder, unspecified type F42.9 Active 455291433 Problem History of traumatic brain injury Z87.820 Active 91702780565012 Problem Hyperlipidemia, unspecified hyperlipidemia type E78.5 Active 98760565 Problem Anemia, unspecified type D64.9 Active 770316848 Problem History of gout Z87.39 Active 311744229 Problem Glaucoma, unspecified glaucoma, unspecified laterality H40.9 Active 38374419 Problem Herpes B00.9 Active 16584637 Problem Weak urinary stream R39.12 Active 21430837 Problem Gastroesophageal reflux disease without esophagitis K21.9 Active 473962768 ALLERGIES No Information SOCIAL HISTORY Never Assessed PLAN OF CARE VITAL SIGNS MEDICATIONS Medication Instructions Dosage Frequency Start Date End Date Duration Status Morphine Sulfate 30 MG Orally 2 times a day 1 tablet 12h 21 Jun, 2016 28 days Active RESULTS No Results PROCEDURES No Known procedures IMMUNIZATIONS No Known Immunizations MEDICAL (GENERAL) HISTORY Type Description Date Medical History History of traumatic brain injury Subdural hematoma from falling out of bed 2012 Medical History Type 2 diabetes mellitus with unspecified complications Medical History 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
--- OUTSIDE RECORDS SUMMARY | 2018-07-02 11:59 | XMS REPORT ---
Author Author LIN WILLIAM Organization [facility] Address [address] [place] [address] Care Team Providers Care Vegetable Tester Name Role Phone LIN WILLIAM Unavailable PROBLEMS Type Condition ICD9-CM Code VWR44-GL Code Onset Dates Condition Status SNOMED Code Problem Essential hypertension I10 Active 65401679 Problem USP current use of insulin Z79.4 Active 560792598 Problem Anxiety F41.9 Active 19768742 Problem Benign prostatic hyperplasia with lower urinary tract symptoms, unspecified morphology N40.1 Active 946408980 Problem Persistent migraine aura without cerebral infarction and without status migrainosus, not intractable G43.509 Active 856088049 Problem Intractable chronic migraine without aura and without status migrainosus G43.719 Active 916581496 Problem Type 2 diabetes mellitus with unspecified complications E11.8 Active 81604450 Problem 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 Active 15508873 Problem Chronic pain due to trauma G89.21 Active 278573506 Problem Recurrent major depressive disorder, in partial remission F33.41 Active 12642554 Problem Traumatic brain injury, without LOC, initial encounter S06.9X0A Active 419767008 Problem Rad (reactive airway disease), mild intermittent, uncomplicated J45.20 Active 108431788782 Problem Obsessive-compulsive disorder, unspecified type F42.9 Active 967087359 Problem History of traumatic brain injury Z87.820 Active 79769179957771 Problem Hyperlipidemia, unspecified hyperlipidemia type E78.5 Active 74756776 Problem Anemia, unspecified type D64.9 Active 206835670 Problem History of gout Z87.39 Active 623828204 Problem Glaucoma, unspecified glaucoma, unspecified laterality H40.9 Active 08470143 Problem Herpes B00.9 Active 24057100 Problem Weak urinary stream R39.12 Active 69910639 Problem Gastroesophageal reflux disease without esophagitis K21.9 Active 291591925 ALLERGIES No Information ENCOUNTERS Encounter Location Date Diagnosis [facility] [address] [facility] [id number] [id number] September, [facility] [address] [id number], [place] [address] Jul, Intractable chronic migraine without aura and without status migrainosus G43.719 [facility] [address] [id number], [place] [address] Jul, Intractable chronic migraine without aura and without status migrainosus G43.719 [facility]ly [facility] [address] [place] [id number] Jul, History of traumatic brain injury Z87.820 ; Recurrent major depressive disorder , in partial remission F33.41 and Type 2 diabetes mellitus with unspecified complications E11.8 [facility] [id number] [id number] Jul, [facility] [address] [id number] [id number] Jul, Intractable chronic migraine without aura and without status migrainosus G43.719 [facility] [address] [id number] [address] Jun, Anxiety F41.9 ; Traumatic brain injury, without LOC, initial encounter S06.9X0A ; Intractable chronic migraine without aura and without status migrainosus G43.719 and Recurrent major depressive disorder, in partial remission F33.41 [facility] [address] [id number] [id number] Jun, [facility] [address] [id number], [place] [address] Jun, [facility] [address] [id number] [id number] Jun, Intractable chronic migraine without aura and without status migrainosus G43.719 [facility] [address] [id number], [place] [address] May, [facility] [address] [place] [id number] May, Recurrent major depressive disorder, in partial remission F33.41 ; Traumatic brain injury, without LOC, initial encounter S06.9X0A and Anxiety F41.9 [facility] [address] [place] [address] May, [facility] [address] [id number] [address] May, [facility] [address] [place] [address] May, Intractable chronic migraine without aura and without status migrainosus G43.719 [facility] [id number] [place] [address] Apr, Anxiety F41.9 ; Traumatic brain injury, without LOC, initial encounter S06.9X0A ; Intractable chronic migraine without aura and without status migrainosus G43.719 and Recurrent major depressive disorder, in partial remission F33.41 [facility] [address] [address] Apr, [facility] [id number] [place] [id number] Apr, Intractable chronic migraine without aura and without status migrainosus G43.719 [facility] [address] [address] Apr, [facility] [id number], [place] [address] Apr, [facility] [address] [id number] [id number] Mar, [facility] [address] [id number], [place] [address] Mar, [facility] [id number] [id number] Mar, [facility] [address] [place] [address] Mar, Intractable chronic migraine without aura and without status migrainosus G43.[address] [facility] [address] [place], [place] [id number] Mar, Encounter for examination for admission to fci Z02.2 ; History of traumatic brain injury Z87.820 ; Recurrent major depressive disorder, in partial remission F33.41 ; Anxiety F41.9 ; Obsessive-compulsive disorder, unspecified type F42.9 ; Essential hypertension I10 and Type 2 diabetes mellitus with unspecified complications E11.8 [facility] [id number] [place] [id number] Feb, [place] [id number] [place] [address] Feb, Obsessive-compulsive disorder, unspecified type F42.9 ; Anxiety F41.9 and Recurrent major depressive disorder, in partial remission F33.41 [place] [id number] [place] [address] Jan, Traumatic brain injury, without LOC, initial encounter S06.9X0A ; Intractable chronic migraine without aura and without status migrainosus G43.719 ; Anxiety F41.9 and Recurrent major depressive disorder, in partial remission F33.41 [place] [address] [place] [address] 20 Jan, 2017 Intractable chronic migraine without aura and without status migrainosus G43.719 [place] [id number] [place] [address] Jan, History of traumatic brain injury Z87.820 ; Anxiety F41.9 and Recurrent major depressive disorder, in partial remission F33.41 [place] [id number] [place] [address]88[address] 13 Jan, 2017 [facility] [address] [place] [id number] 07 Jan, 2017 History of traumatic brain injury Z87.820 and Obsessive-compulsive disorder, unspecified type F42.9 [place] [address] [id number], [place] [address] 06 Jan, 2017 Traumatic brain injury, without LOC, initial encounter S06.9X0A ; Intractable chronic migraine without aura and without status migrainosus G43.719 ; Anxiety F41.9 and Recurrent major depressive disorder, in partial remission F33.41 [facility] [address], [place] [address] 05 Jan, 2017 History of traumatic brain injury Z87.820 ; Obsessive- compulsive disorder, unspecified type F42.9 ; Anxiety F41.9 and Recurrent major depressive disorder, in partial remission F33.41 [facility] [id number] [place] [id number] 31 Dec, 2016 [facility] [id number] [place] [id number] 28 Dec, 2016 Intractable chronic migraine without aura and without status migrainosus G43.719 [facility] [address] [place] [id number] Dec, Type 2 diabetes mellitus with unspecified complications E11.8 and Essential hypertension I10 [facility] [address] [place] [address] 18 Dec, 2016 Traumatic brain injury, without LOC, initial encounter S06.9X0A [facility] [address] [place] [address]62- 4212 16 Dec, 2016 Traumatic brain injury, without LOC, initial encounter S06.9X0A ; Intractable chronic migraine without aura and without status migrainosus G43.719 ; Anxiety F41.9 and Recurrent major depressive disorder, in partial remission F33.41 [facility] [address] [id number], [place] [address] 15 Dec, 2016 [facility] [id number] [place] [address]- [address] 11 Dec, 2016 History of traumatic brain injury Z87.820 ; Obsessive- compulsive disorder, unspecified type F42.9 ; Anxiety F41.9 and Recurrent major depressive disorder, in partial remission F33.41 [facility] [address] [id number], [place] [address] Dec, Traumatic brain injury, without LOC, initial encounter S06.9X0A [facility] [address], [place] [address] Dec, Anxiety F41.9 and Recurrent major depressive disorder, in partial remission F33.41 [facility] [address], [place] [address] Dec, Traumatic brain injury, without LOC, initial encounter S06.9X0A ; Intractable chronic migraine without aura and without status migrainosus G43.719 ; Anxiety F41.9 and Recurrent major depressive disorder, in partial remission F33.41 [facility] [address], [place] [address] Dec, [facility] [id number] [place] [id number] Nov, Intractable chronic migraine without aura and without status migrainosus G43.719 [facility] [address] [id number] Nov, Obsessive-compulsive disorder, unspecified type F42.9 ; Anxiety F41.9 and Intractable chronic migraine without aura and without status migrainosus G43.719 [facility] [address] [id number], [place] [address] Nov, Traumatic brain injury, without LOC, initial encounter S06.9X0A ; Intractable chronic migraine without aura and without status migrainosus G43.719 ; Anxiety F41.9 and Recurrent major depressive disorder, in partial remission F33.41 [facility] [id number] [place] [id number] Nov, [facility] [address] [place] [address] 9767 Nov, Anxiety F41.9 and Recurrent major depressive disorder, in partial remission F33.41 [facility] [address] [id number], [place] [address] Nov, [facility] [address] [id number] [id number] Nov, [facility] [address], [place] [address] Oct, [facility] [address], [place] [address] Oct, Anxiety F41.9 and Recurrent major depressive disorder, in partial remission F33.41 [facility] [address], [place] [address] Oct, [facility] [address], [place] [address] September, Anxiety F41.9 and Recurrent major depressive disorder, in partial remission F33.41 [facility] [address], [place] [address] September, Traumatic brain injury, without LOC, initial encounter S06.9X0A ; Intractable chronic migraine without aura and without status migrainosus G43.719 ; Anxiety F41.9 and Recurrent major depressive disorder, in partial remission F33.41 [facility] [address], [place] [address] September, [facility] [id number], [place] [address] September, Anxiety F41.9 [facility] [address], [place] [address] September, [facility] [id number] [id number] September, Type 2 diabetes mellitus with unspecified complications E11.8 [facility] [id number] [id number] September, Type 2 diabetes mellitus with unspecified complications E11.8 [facility] [address] [id number] September, Essential hypertension I10 and History of traumatic brain injury Z87.820 [facility] [id number] [place] [address] 67125- 5271 Aug, [facility] [address] [id number] Aug, Type 2 diabetes mellitus with unspecified complications E11.8 and Benign prostatic hyperplasia with lower urinary tract symptoms, unspecified morphology N40.1 [facility] [id number] [place] [address] [id number] Aug, [facility] [id number] [place] [address] 67056- 8535 Aug, [place] [id number] [place] [id number]- 3566 Jul, Traumatic brain injury, without LOC, initial encounter S06.9X0A ; Intractable chronic migraine without aura and without status migrainosus G43.719 ; Anxiety F41.9 and Recurrent major depressive disorder, in partial remission F33.41 [facility] [id number] [place] [address] 10768- 9122 Jul, [facility] [id number] [place] [address] 61208- 0379 Jul, [facility] [id number] [place] [address] [id number] Jun, [facility] [id number] [place] [address] 13398- 7996 Jun, [facility] [id number] [place] [address] 16893- 2270 Jun, [facility] [address] [id number] Jun, Encounter to establish care Z76.89 [facility] [id number] [place] [address] 91790- 4889 Jun, [facility] [id number] [place] [address] 54496- 3349 Jun, [facility] [address] [id number] [place] [address] Jun, [facility] [address] [id number] [place] [address] Jun, [facility] [place] [address] [id number] [place] [id number] May, Dental examination Z01.20 [facility] [place] [address] [id number] [place] [id number] Dec, Dental examination Z01.20 [facility] [place] [address] [id number] [place] [id number] September, Dental examination Z01.20 [facility] [place] [address] [id number] [place] [id number] Dec, [facility] examination V72.2 [facility] [address] [facility] [id number] [place] [address]- [address] Aug, [facility] [address] [facility] [id number], [place] [address]- 2546 Aug, [facility] [address] [facility] [id number], [place] [address]- 1786 Apr, [facility] [address] [facility] [id number], [place] [address]- [address]46 Nov, [facility] [address] [facility] [id number], [place] [address]46 Nov, [facility] [address] [facility] [id number], [place] [address]- 2546 Nov, [facility] [address] [facility] [id number], [place] [address]- 7746 Nov, [facility] [address] [facility] [id number], [place] [address]- 2546 Oct, [facility] [address] [facility] [id number], [place] [address] May, [facility] [address] [facility] [id number] [place] [address] May, IMMUNIZATIONS No Known Immunizations SOCIAL HISTORY Never Assessed REASON FOR VISIT BH Follow-up Anxiety PLAN OF CARE Activity Details Follow Up prn Reason: VITAL SIGNS MEDICATIONS Unknown Medications RESULTS No Results PROCEDURES Procedure Date Ordered Result Body Site [facility] VISIT MENTAL HEALTH ESTAB PT November 30, 2016 Psychotherapy, patient &/family, 30 minutes, established patient November 30, 2016 INSTRUCTIONS MEDICATIONS ADMINISTERED No Known Medications MEDICAL (GENERAL) HISTORY Type Description Date Medical History History of traumatic brain injury Subdural hematoma from falling out of bed 2012 Medical History Type 2 diabetes mellitus with unspecified complications Medical History USP current use of insulin Medical 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
--- OUTSIDE RECORDS SUMMARY | 2018-07-02 11:59 | XMS REPORT ---
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 Name Role Phone NICK FONSECA Unavailable PROBLEMS Type Condition ICD9-CM Code HME77-PJ Code Onset Dates Condition Status SNOMED Code Problem Essential hypertension I10 Active 45787298 Problem halfway current use of insulin Z79.4 Active 759968975 Problem Anxiety F41.9 Active 99752576 Problem Benign prostatic hyperplasia with lower urinary tract symptoms, unspecified morphology N40.1 Active 410282784 Problem Persistent migraine aura without cerebral infarction and without status migrainosus, not intractable G43.509 Active 289784034 Problem Intractable chronic migraine without aura and without status migrainosus G43.719 Active 489854698 Problem Type 2 diabetes mellitus with unspecified complications E11.8 Active 34458163 Problem 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 Active 54255784 Problem Chronic pain due to trauma G89.21 Active 884909352 Problem Recurrent major depressive disorder, in partial remission F33.41 Active 71694547 Problem Traumatic brain injury, without LOC, initial encounter S06.9X0A Active 508352989 Problem Rad (reactive airway disease), mild intermittent, uncomplicated J45.20 Active 616050603755 Problem Obsessive-compulsive disorder, unspecified type F42.9 Active 983984000 Problem History of traumatic brain injury Z87.820 Active 54141093101385 Problem Hyperlipidemia, unspecified hyperlipidemia type E78.5 Active 35639543 Problem Anemia, unspecified type D64.9 Active 327587448 Problem History of gout Z87.39 Active 740814761 Problem Glaucoma, unspecified glaucoma, unspecified laterality H40.9 Active 31680972 Problem Herpes B00.9 Active 98881774 Problem Weak urinary stream R39.12 Active 35304775 Problem Gastroesophageal reflux disease without esophagitis K21.9 Active 820389250 ALLERGIES No Information ENCOUNTERS Encounter Location Date Diagnosis [facility] [address], [place] [address] Dec, [facility] [id number] [place] [address] Oct, Anxiety F41.9 ; Traumatic brain injury, without LOC, initial encounter S06.9X0A ; Intractable chronic migraine without aura and without status migrainosus G43.719 and Recurrent major depressive disorder, in partial remission F33.41 [facility] [address], [place] [address] Oct, [facility] [id number] [place] [address]- 4942 Oct, [facility] [id number] [place] [address] 6[address]- 0012 Oct, [facility] [id number] [place] [address]- 2308 September, Anxiety F41.9 ; Traumatic brain injury, without LOC, initial encounter S06.9X0A ; Intractable chronic migraine without aura and without status migrainosus G43.719 and Recurrent major depressive disorder, in partial remission F33.41 [facility] [address] [place] [id number] September, Weight gain R63.5 and Type 2 diabetes mellitus with unspecified complications E11.8 [facility] [address], [place] [address] September, [facility] [address], [place] [address] Aug, [facility] [address] [facility] [id number] [place] [id number] Aug, [facility] [id number] [place] [address] 85[address] Aug, [facility] [id number], [place] [address] Jul, Intractable chronic migraine without aura and without status migrainosus G43.719 [facility] [id number], [place] [address] Jul, Intractable chronic migraine without aura and without status migrainosus G43.719 [facility] [address] [place] [id number] Jul, History of traumatic brain injury Z87.820 ; Recurrent major depressive disorder , in partial remission F33.41 and Type 2 diabetes mellitus with unspecified complications E11.8 [facility] [address] [id number] [id number] Jul, [facility] [id number] [place] [id number] Jul, Intractable chronic migraine without aura and without status migrainosus G43.719 [facility] [id number], [place] [address] Jun, Anxiety F41.9 ; Traumatic brain injury, without LOC, initial encounter S06.9X0A ; Intractable chronic migraine without aura and without status migrainosus G43.719 and Recurrent major depressive disorder, in partial remission F33.41 [facility] [address] [id number] [id number] Jun, [facility] [id number], [place] [address] Jun, [facility] [id number] [id number] Jun, Intractable chronic migraine without aura and without status migrainosus G43.719 [facility] [id number], [place] [address] May, [facility] [address] [place] [id number] May, Recurrent major depressive disorder, in partial remission F33.41 ; Traumatic brain injury, without LOC, initial encounter S06.9X0A and Anxiety F41.9 [facility] [id number] [place] [address]- [address]69 May, [facility] [id number] [id number] May, [facility] [id number] [place] [address] 2[address] May, Intractable chronic migraine without aura and without status migrainosus G43.719 [facility] [address], [place] [address] Apr, Anxiety F41.9 ; Traumatic brain injury, without LOC, initial encounter S06.9X0A ; Intractable chronic migraine without aura and without status migrainosus G43.719 and Recurrent major depressive disorder, in partial remission F33.41 [facility] [id number], [place] [address] Apr, [facility] [id number] [place] [id number] Apr, Intractable chronic migraine without aura and without status migrainosus G43.719 [facility] [address], [place] [address] Apr, [facility] [id number] [place] [address] 46015- 5050 Apr, [facility] [id number] [place] [id number] Mar, [facility] [address], [place] [address] Mar, [facility] [id number] [id number] Mar, [facility] [id number] [place] [id number] 9219 Mar, Intractable chronic migraine without aura and without status migrainosus G43.719 [facility] [address] [place] [id number] Mar, Encounter for examination for admission to halfway Z02.2 ; History of traumatic brain injury Z87.820 ; Recurrent major depressive disorder, in partial remission F33.41 ; Anxiety F41.9 ; Obsessive-compulsive disorder, unspecified type F42.9 ; Essential hypertension I10 and Type 2 diabetes mellitus with unspecified complications E11.8 [facility] [place] [id number] [id number] Feb, [facility] [id number], [place] [address] Feb, Obsessive-compulsive disorder, unspecified type F42.9 ; Anxiety F41.9 and Recurrent major depressive disorder, in partial remission F33.41 [facility] [id number], [place] [address] 27 Jan, 2017 Traumatic brain injury, without LOC, initial encounter S06.9X0A ; Intractable chronic migraine without aura and without status migrainosus G43.719 ; Anxiety F41.9 and Recurrent major depressive disorder, in partial remission F33.41 [facility] [id number], [place] [address] 20 Jan, 2017 Intractable chronic migraine without aura and without status migrainosus G43.719 [facility] [id number] [place] [address]1201- 1518 19 Jan, 2017 History of traumatic brain injury Z87.820 ; Anxiety F41.9 and Recurrent major depressive disorder, in partial remission F33.41 [facility] [id number], [place] [address] 13 Jan, 2017 [facility] [address] [id number] Jan, 2017 History of traumatic brain injury Z87.820 and Obsessive-compulsive disorder, unspecified type F42.9 [facility] [id number] [place] [address]164[address] 3[address] 06 Jan, 2017 Traumatic brain injury, without LOC, initial encounter S06.9X0A ; Intractable chronic migraine without aura and without status migrainosus G43.719 ; Anxiety F41.9 and Recurrent major depressive disorder, in partial remission F33.41 [facility] [id number], [place] [address] 05 Jan, 2017 History of traumatic brain injury Z87.820 ; Obsessive- compulsive disorder, unspecified type F42.9 ; Anxiety F41.9 and Recurrent major depressive disorder, in partial remission F33.41 [facility] [place] [id number], [place] [id number] Dec, [facility] [place] [id number] [place] [id number] Dec, Intractable chronic migraine without aura and without status migrainosus G43.719 [facility] [address] [place] [id number] Dec, Type 2 diabetes mellitus with unspecified complications E11.8 and Essential hypertension I10 [facility] [address], [place] [address] 18 Dec, 2016 Traumatic brain injury, without LOC, initial encounter S06.9X0A [facility] [address] [place] [address] 02963- 6573 16 Dec, 2016 Traumatic brain injury, without LOC, initial encounter S06.9X0A ; Intractable chronic migraine without aura and without status migrainosus G43.719 ; Anxiety F41.9 and Recurrent major depressive disorder, in partial remission F33.41 [place] [id number], [place] [address] 15 Dec, 2016 [place] [address] [place] [address] 35929- 5988 11 Dec, 2016 History of traumatic brain injury Z87.820 ; Obsessive- compulsive disorder, unspecified type F42.9 ; Anxiety F41.9 and Recurrent major depressive disorder, in partial remission F33.41 [facility] [address], [place] [address] 09 Dec, 2016 Traumatic brain injury, without LOC, initial encounter S06.9X0A [facility] [address] [place] [address] 00217- 0592 Dec, Anxiety F41.9 and Recurrent major depressive disorder, in partial remission F33.41 [facility] [address], [place] [address] Dec, Traumatic brain injury, without LOC, initial encounter S06.9X0A ; Intractable chronic migraine without aura and without status migrainosus G43.719 ; Anxiety F41.9 and Recurrent major depressive disorder, in partial remission F33.41 [facility] [address], [place] [address] Dec, [facility] [place] [id number] [place] [id number] Nov, Intractable chronic migraine without aura and without status migrainosus G43.719 [facility] [address] [place] [place] [id number] Nov, Obsessive-compulsive disorder, unspecified type F42.9 ; Anxiety F41.9 and Intractable chronic migraine without aura and without status migrainosus G43.719 [facility] [id number], [place] [address] Nov, Traumatic brain injury, without LOC, initial encounter S06.9X0A ; Intractable chronic migraine without aura and without status migrainosus G43.719 ; Anxiety F41.9 and Recurrent major depressive disorder, in partial remission F33.41 [facility] [id number] [id number] Nov, [facility] [id number], [place] [address] Nov, Anxiety F41.9 and Recurrent major depressive disorder, in partial remission F33.41 [facility] [address], [place] [address] Nov, [facility] [place] [id number] [id number] Nov, [facility] [address], [place] [address] 95[address] Oct, [facility] [address], [place] [address] Oct, Anxiety F41.9 and Recurrent major depressive disorder, in partial remission F33.41 [facility] [address], [place] [address]- 5[address] Oct, [facility] [id number], [place] [address] 28[address] September, Anxiety F41.9 and Recurrent major depressive disorder, in partial remission F33.41 [facility] [address] [place] [address] 12102- 4109 September, Traumatic brain injury, without LOC, initial encounter S06.9X0A ; Intractable chronic migraine without aura and without status migrainosus G43.719 ; Anxiety F41.9 and Recurrent major depressive disorder, in partial remission F33.41 [facility] [address], [place] [address]- 5[address] September, [facility] [address], [place] [address] 4830 September, Anxiety F41.9 [facility] [address], [place] [address] 3852 September, [facility] [place] [id number] [id number] September, Type 2 diabetes mellitus with unspecified complications E11.8 [facility] [place] [id number] [address] September, Type 2 diabetes mellitus with unspecified complications E11.8 [facility] [address] [place] [place] [id number] September, Essential hypertension I10 and History of traumatic brain injury Z87.820 [facility] [address], [place] [address] Aug, [facility] [address] [place] [id number] Aug, Type 2 diabetes mellitus with unspecified complications E11.8 and Benign prostatic hyperplasia with lower urinary tract symptoms, unspecified morphology N40.1 [facility] [place] [id number] [place] [address] [id number] Aug, [facility] [id number] [place] [address] 02892- 4294 Aug, [facility] [id number] [place] [address] 16681- 0801 Jul, Traumatic brain injury, without LOC, initial encounter S06.9X0A ; Intractable chronic migraine without aura and without status migrainosus G43.719 ; Anxiety F41.9 and Recurrent major depressive disorder, in partial remission F33.41 [facility] [id number] [place] [address] 41829- 8900 Jul, [facility] [id number] [place] [address] 07452- 5182 Jul, [facility] [place] [id number] [place] [address] [id number] Jun, [facility] [id number] [place] [address] 44062- 6800 Jun, [facility] [id number] [place] [address] 38404- 5557 Jun, [facility] [address] [place] [id number] Jun, Encounter to establish care Z76.89 [facility] [id number] [place] [address] 08107- 9585 Jun, [facility] [id number] [place] [address] 12208- 8772 Jun, [facility] [id number] [place] [address] 75988- 2515 Jun, [facility] [id number] [place] [address] 61501- 2546 Jun, [facility] [place] [address] [id number] [place] [id number] May, Dental examination Z01.20 [facility] [place] [address] [id number] [place] [id number] Dec, Dental examination Z01.20 [facility] [place] [address] [id number] [place] [id number] September, Dental examination Z01.20 [facility] [place] [address] [id number] [place] [id number] Dec, Dental examination V72.2 [facility] [address] [facility] [id number], [place] [address] 277[address] Aug, [facility] [address], [place] [address]- 6006 Aug, [facility] [address], [place] [address]- 1626 Apr, [facility] [address], [place] [address]- 1476 Nov, [facility] [address], [place] [address]- 7646 Nov, [facility] [address], [place] [address]- 2479 Nov, [facility] [address], [place] [address]- 3886 Nov, [facility] [id number], [place] [address]- 0256 Oct, [facility] [address], [place] [address]- 7986 May, [facility] [id number], [place] [address]- 2546 May, IMMUNIZATIONS No Known Immunizations SOCIAL HISTORY Never Assessed REASON FOR VISIT Refill request PLAN OF CARE VITAL SIGNS MEDICATIONS Medication [...]
--- OUTSIDE RECORDS SUMMARY | 2018-07-02 11:59 | XMS REPORT ---
Author Author NICK FONSECA Organization [facility] Address [address] [place] [address] Care Team Providers Care Patient Services Assistant Name Role Phone NICK FONSECA Unavailable PROBLEMS Type Condition ICD9-CM Code STW44-BQ Code Onset Dates Condition Status SNOMED Code Problem Essential hypertension I10 Active 58027582 Problem halfway current use of insulin Z79.4 Active 581242918 Problem Anxiety F41.9 Active 63650719 Problem Benign prostatic hyperplasia with lower urinary tract symptoms, unspecified morphology N40.1 Active 436504842 Problem Persistent migraine aura without cerebral infarction and without status migrainosus, not intractable G43.509 Active 717661589 Problem Intractable chronic migraine without aura and without status migrainosus G43.719 Active 114952646 Problem Type 2 diabetes mellitus with unspecified complications E11.8 Active 78778233 Problem 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 Active 08222706 Problem Chronic pain due to trauma G89.21 Active 219312013 Problem Recurrent major depressive disorder, in partial remission F33.41 Active 19037854 Problem Traumatic brain injury, without LOC, initial encounter S06.9X0A Active 938881985 Problem Rad (reactive airway disease), mild intermittent, uncomplicated J45.20 Active 682989664824 Problem Obsessive-compulsive disorder, unspecified type F42.9 Active 517294393 Problem History of traumatic brain injury Z87.820 Active 10363484324630 Problem Hyperlipidemia, unspecified hyperlipidemia type E78.5 Active 16513290 Problem Anemia, unspecified type D64.9 Active 739322675 Problem History of gout Z87.39 Active 076334952 Problem Glaucoma, unspecified glaucoma, unspecified laterality H40.9 Active 54500316 Problem Herpes B00.9 Active 27819994 Problem Weak urinary stream R39.12 Active 84112305 Problem Gastroesophageal reflux disease without esophagitis K21.9 Active 380698345 ALLERGIES No Information ENCOUNTERS Encounter Location Date Diagnosis [place] [address] [address] Dec, [place] [id number] [place] [address] Oct, [facility] [address] [place] [id number] Oct, Excessive anger R45.4 and Obsessive-compulsive disorder, unspecified type F42.9 [place] [id number] [place] [address]4626- 3299 Oct, Anxiety F41.9 ; Traumatic brain injury, without LOC, initial encounter S06.9X0A ; Intractable chronic migraine without aura and without status migrainosus G43.719 and Recurrent major depressive disorder, in partial remission F33.41 [place] [address] [place] [address] 57382- 3073 12 Oct, 2017 [place] [address] [place] [address] 85483- 1456 05 Oct, 2017 [place] [address] [place] [address] 64780- 9004 04 Oct, 2017 [place] [address] [place] [address] 04923- 6274 September, Anxiety F41.9 ; Traumatic brain injury, without LOC, initial encounter S06.9X0A ; Intractable chronic migraine without aura and without status migrainosus G43.719 and Recurrent major depressive disorder, in partial remission F33.41 [facility] [address] [place] [id number] September, Weight gain R63.5 and Type 2 diabetes mellitus with unspecified complications E11.8 [place] [address] [place] [address] 38711- 1007 September, [place] [address] [address] Aug, [facility] [id number] [id number] Aug, [facility] [id number] [address] Aug, [facility] [address] [address] Jul, Intractable chronic migraine without aura and without status migrainosus G43.719 [facility] [address] [id number] [address] [address] Jul, Intractable chronic migraine without aura and without status migrainosus G43.719 [facility] [address] [place] [id number] Jul, History of traumatic brain injury Z87.820 ; Recurrent major depressive disorder, in partial remission F33.41 and Type 2 diabetes mellitus with unspecified complications E11.8 [facility] [id number] [place] [address] Jul, [facility] [id number] [place] [id number] Jul, Intractable chronic migraine without aura and without status migrainosus G43.719 [facility] [id number] [address] Jun, Anxiety F41.9 ; Traumatic brain injury, without LOC, initial encounter S06.9X0A ; Intractable chronic migraine without aura and without status migrainosus G43.719 and Recurrent major depressive disorder, in partial remission F33.41 [facility] [id number] [place] [id number] Jun, [facility] [address] [id number] [address] Jun, [facility] [id number] [place] [address] Jun, Intractable chronic migraine without aura and without status migrainosus G43.719 [facility] [address] [id number] [address] May, [facility] [address] [place] [id number] May, Recurrent major depressive disorder, in partial remission F33.41 ; Traumatic brain injury, without LOC, initial encounter S06.9X0A and Anxiety F41.9 [facility] [address] [facility] [id number] [address] May, [facility] [address] [id number] [address] May, [facility] [address] [facility] [id number] [place] [address] May, Intractable chronic migraine without aura and without status migrainosus G43.719 [facility] [address] [facility] [id number] [place] [address] Apr, Anxiety F41.9 ; Traumatic brain injury, without LOC, initial encounter S06.9X0A ; Intractable chronic migraine without aura and without status migrainosus G43.719 and Recurrent major depressive disorder, in partial remission F33.41 [facility] [address] [id number] [address] Apr, [facility] [address] [id number] [address] Apr, Intractable chronic migraine without aura and without status migrainosus G43.719 [facility] [address] [id number] [address] Apr, [facility] [address] [id number] [address] Apr, [facility] [address] [id number] [place] [id number] Mar, [facility] [address] [facility] [id number] [place] [address] Mar, [facility] [id number] [place] [id number] Mar, [facility] [address] [address] 14 Mar, 2017 Intractable chronic migraine without aura and without status migrainosus G43.719 [facility] [address] [place] [id number] Mar, Encounter [facility] Z02.2 ; History of traumatic brain injury Z87.820 ; Recurrent major depressive disorder, in partial remission F33.41 ; Anxiety F41.9 ; Obsessive-compulsive disorder, unspecified type F42.9 ; Essential hypertension I10 and Type 2 diabetes mellitus with unspecified complications E11.8 [facility] [id number] [place] [id number] Feb, [place] [id number] [place] [address] Feb, Obsessive-compulsive disorder, unspecified type F42.9 ; Anxiety F41.9 and Recurrent major depressive disorder, in partial remission F33.41 [place] [address] [place] [address] 67242- 8531 27 Jan, 2017 Traumatic brain injury, without LOC, initial encounter S06.9X0A ; Intractable chronic migraine without aura and without status migrainosus G43.719 ; Anxiety F41.9 and Recurrent major depressive disorder, in partial remission F33.41 [place] [address] [id number] [address] 79[address] 20 Jan, 2017 Intractable chronic migraine without aura and without status migrainosus G43.719 [place] [address] [place] [address] 84577- 6656 19 Jan, 2017 History of traumatic brain injury Z87.820 ; Anxiety F41.9 and Recurrent major depressive disorder, in partial remission F33.41 [place] [address] [place] [address] 44011- 9597 13 Jan, 2017 [facility] [address] [place] [id number] 07 Jan, 2017 History of traumatic brain injury Z87.820 and Obsessive-compulsive disorder, unspecified type F42.9 [facility] [address] [id number] [address] 06 Jan, 2017 Traumatic brain injury, without LOC, initial encounter S06.9X0A ; Intractable chronic migraine without aura and without status migrainosus G43.719 ; Anxiety F41.9 and Recurrent major depressive disorder, in partial remission F33.41 [facility] [address] [place] [address] 50535- 2405 05 Jan, 2017 History of traumatic brain injury Z87.820 ; Obsessive- compulsive disorder, unspecified type F42.9 ; Anxiety F41.9 and Recurrent major depressive disorder, in partial remission F33.41 [facility] [id number] [place] [id number] 31 Dec, 2016 [facility] [id number] [place] [address] [id number] 28 Dec, 2016 Intractable chronic migraine without aura and without status migrainosus G43.719 [facility] [address] [place] [id number] Dec, Type 2 diabetes mellitus with unspecified complications E11.8 and Essential hypertension I10 [facility] [id number] [place] [address] 79007- 8798 18 Dec, 2016 Traumatic brain injury, without LOC, initial encounter S06.9X0A [facility] [address] [place] [address] 41606- 9353 16 Dec, 2016 Traumatic brain injury, without LOC, initial encounter S06.9X0A ; Intractable chronic migraine without aura and without status migrainosus G43.719 ; Anxiety F41.9 and Recurrent major depressive disorder, in partial remission F33.41 [facility] [address] [place] [address] 20179- 1557 15 Dec, 2016 [facility] [address] [place] [address] 22657- 8672 11 Dec, 2016 History of traumatic brain injury Z87.820 ; Obsessive- compulsive disorder, unspecified type F42.9 ; Anxiety F41.9 and Recurrent major depressive disorder, in partial remission F33.41 [facility] [address] [id number] [address] 9227 Dec, Traumatic brain injury, without LOC, initial encounter S06.9X0A [facility] [address] [id number] [address] 0191 Dec, Anxiety F41.9 and Recurrent major depressive disorder, in partial remission F33.41 [place] [address] [place] [address] 05022- 2050 Dec, Traumatic brain injury, without LOC, initial encounter S06.9X0A ; Intractable chronic migraine without aura and without status migrainosus G43.719 ; Anxiety F41.9 and Recurrent major depressive disorder, in partial remission F33.41 [place] [address] [address] Dec, [facility] [id number] [place] [address] [id number] Nov, Intractable chronic migraine without aura and without status migrainosus G43.719 [facility] [address] [place] [id number] Nov, Obsessive-compulsive disorder, unspecified type F42.9 ; Anxiety F41.9 and Intractable chronic migraine without aura and without status migrainosus G43.719 [place] [address] [id number] [address] 7569 Nov, Traumatic brain injury, without LOC, initial encounter S06.9X0A ; Intractable chronic migraine without aura and without status migrainosus G43.719 ; Anxiety F41.9 and Recurrent major depressive disorder, in partial remission F33.41 [facility] [id number] [place] [address] [id number] Nov, [facility] [address] [id number] [address]- 7898 Nov, Anxiety F41.9 and Recurrent major depressive disorder, in partial remission F33.41 [facility] [address] [id number] [address]- 6436 Nov, [facility] [id number] [id number] Nov, [facility] [address] [id number] [address]- 5139 Oct, [facility] [address] [place] [address] 66461- 2410 Oct, Anxiety F41.9 and Recurrent major depressive disorder, in partial remission F33.41 [facility] [address] [address]- 1451 Oct, [facility] [address] [address]- 5376 September, Anxiety F41.9 and Recurrent major depressive disorder, in partial remission F33.41 [facility] [address] [address]- 7337 September, Traumatic brain injury, without LOC, initial encounter S06.9X0A ; Intractable chronic migraine without aura and without status migrainosus G43.719 ; Anxiety F41.9 and Recurrent major depressive disorder, in partial remission F33.41 [facility] [address] [address]- 8784 September, [facility] [address] [address]- 8971 September, Anxiety F41.9 [facility] [address] [id number] [address]- 3858 September, [facility] [id number] [address] September, Type 2 diabetes mellitus with unspecified complications E11.8 [facility] [id number] [place] [id number] September, Type 2 diabetes mellitus with unspecified complications E11.8 [facility] [address] [place] [address] September, Essential hypertension I10 and History of traumatic brain injury Z87.820 [facility] [id number] [place] [address] 51146- 7904 Aug, [facility] [address] [place] [id number] Aug, Type 2 diabetes mellitus with unspecified complications E11.8 and Benign prostatic hyperplasia with lower urinary tract symptoms, unspecified morphology N40.1 [facility] [id number] [place] [address] [id number] Aug, [facility] [id number] [place] [address] 62632- 3083 Aug, [place] [id number] [place] [address] 57637- 5922 Jul, Traumatic brain injury, without LOC, initial encounter S06.9X0A ; Intractable chronic migraine without aura and without status migrainosus G43.719 ; Anxiety F41.9 and Recurrent major depressive disorder, in partial remission F33.41 [place] [id number] [place] [address] 62143- 2333 Jul, [place] [id number] [place] [address] 99865- 4547 Jul, [facility] [id number] [place] [address] [id number] Jun, [place] [id number] [place] [address] 03775- 2816 Jun, [facility] [id number] [place] [address] 61803- 7001 Jun, [facility] [address] [place] [id number] Jun, Encounter to establish care Z76.89 [facility] [id number] [place] [address] 52649- 0475 Jun, [place] [address] [id number] [place] [address]- 9244 Jun, [facility] [place] [facility] [address] [id number] [place] [address]- 8442 Jun, [facility] [place] [facility] [address] [id number] [place] [address]- 2546 Jun, [facility] [place] [address] [id number] [place] [id number] May, Dental examination Z01.20 [facility] [place] [address] [id number] [place] [address] Dec, Dental examination Z01.20 [facility] [place] [address] [id number] [place] [id number] September, Dental examination Z01.20 [facility] [place] [address] [id number] [place] [id number] Dec, Dental examination V72.2 [facility] [address] [id number] [place] [address]- 7483 Aug, [facility] [place] [facility] [address] [facility] [id number] [place] [address]- 5995 Aug, [facility] [place] [facility] [address] [facility] [id number] [place] [address] Apr, [facility] [place] [facility] [address] [facility] [id number] [place] 9837 Nov, [facility] [place] [facility] [address] [facility] [id number] [place] [address]1 Nov, [facility] [place] [facility] [address] [facility] [id number] [place]- 6950 Nov, [facility] [place] [facility] [address] [facility] [id number] [place]- 9763 Nov, [facility] [place] [facility] [address] [facility] [id number] [place] 8561 Oct, [facility] [place] [facility] [address] [facility] [id number] [place] [address]- 9432 May, [facility] [address] [facility] [id number] [place] [address]- 9165 May, IMMUNIZATIONS No Known Immunizations SOCIAL HISTORY [...]
[2018-07-02 12:00] LABS: BASOPHILS % (AUTO) 0 % (0-10); EOSINOPHILS # (AUTO) 0.3 10^3/uL (0.0-0.3); EOSINOPHILS % (AUTO) 5 % (0-10); HEMATOCRIT 41 % (40-54); HEMOGLOBIN 14.2 G/DL (13.3-17.7); LYMPHOCYTES # (AUTO) 1.1 X 10^3 (1.0-4.0); LYMPHOCYTES % (AUTO) 16 % (12-44); MEAN CORPUSCULAR HEMOGLOBIN 29 PG (25-34); MEAN CORPUSCULAR HGB CONC 34 G/DL (32-36); MEAN CORPUSCULAR VOLUME 84 FL (80-99); MEAN PLATELET VOLUME 10.6 FL (7.4-10.4); MONOCYTES # (AUTO) 0.6 X 10^3 (0.0-1.0); MONOCYTES % (AUTO) 9 % (0-12); NEUTROPHILS % (AUTO) 71 % (42-75); PLATELET COUNT 251 10^3/uL (130-400); RED CELL DISTRIBUTION WIDTH 13.3 % (10.0-14.5); WHITE BLOOD COUNT 7.1 10^3/uL (4.3-11.0)
[2018-07-02] MEDS ORDERED: LORazepam INJ 2 MG/ML (ATIVAN) VIAL IVP PRN (12:00)
--- OUTSIDE RECORDS SUMMARY | 2018-07-02 12:00 | XMS REPORT ---
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 Active 954207102 Problem Anxiety F41.9 Active 42470478 Problem Benign prostatic hyperplasia with lower urinary tract symptoms, unspecified morphology N40.1 Active 246442476 Problem Persistent migraine aura without cerebral infarction and without status migrainosus, not intractable G43.509 Active 850812235 Problem Intractable chronic migraine without aura and without status migrainosus G43.719 Active 729749360 Problem Type 2 diabetes mellitus with unspecified complications E11.8 Active 72780421 Problem 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 Active 13120292 Problem Chronic pain due to trauma G89.21 Active 296662103 Problem Recurrent major depressive disorder, in partial remission F33.41 Active 35708453 Problem Traumatic brain injury, without LOC, initial encounter S06.9X0A Active 677890450 Problem Rad (reactive airway disease), mild intermittent, uncomplicated J45.20 Active 130628595866 Problem Obsessive-compulsive disorder, unspecified type F42.9 Active 725805295 Problem History of traumatic brain injury Z87.820 Active 62207626254879 Problem Hyperlipidemia, unspecified hyperlipidemia type E78.5 Active 40087387 Problem Anemia, unspecified type D64.9 Active 761676809 Problem History of gout Z87.39 Active 353813996 Problem Glaucoma, unspecified glaucoma, unspecified laterality H40.9 Active 90822514 Problem Herpes B00.9 Active 41440650 Problem Weak urinary stream R39.12 Active 19701941 Problem Gastroesophageal reflux disease without esophagitis K21.9 Active 443170207 ALLERGIES No Information SOCIAL HISTORY Never Assessed PLAN OF CARE VITAL SIGNS MEDICATIONS Medication Instructions Dosage Frequency Start Date End Date Duration Status Clonazepam 1 MG Orally every 8 hours by oral route 8h May, 28 days Active RESULTS No Results PROCEDURES No Known procedures IMMUNIZATIONS No Known Immunizations MEDICAL (GENERAL) HISTORY Type Description Date Medical History History of traumatic brain injury Subdural hematoma from falling out of bed 2012 Medical History Type 2 diabetes mellitus with unspecified complications Medical History [facility] current use of insulin Medical 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
--- OUTSIDE RECORDS SUMMARY | 2018-07-02 12:00 | XMS REPORT ---
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 Active 624858909 Problem Anxiety F41.9 Active 54264390 Problem Benign prostatic hyperplasia with lower urinary tract symptoms, unspecified morphology N40.1 Active 944257101 Problem Persistent migraine aura without cerebral infarction and without status migrainosus, not intractable G43.509 Active 427184692 Problem Intractable chronic migraine without aura and without status migrainosus G43.719 Active 854585446 Problem Type 2 diabetes mellitus with unspecified complications E11.8 Active 23489715 Problem 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 Active 26553099 Problem Chronic pain due to trauma G89.21 Active 692379604 Problem Recurrent major depressive disorder, in partial remission F33.41 Active 77711160 Problem Traumatic brain injury, without LOC, initial encounter S06.9X0A Active 488142734 Problem Rad (reactive airway disease), mild intermittent, uncomplicated J45.20 Active 831905598986 Problem Obsessive-compulsive disorder, unspecified type F42.9 Active 521521484 Problem History of traumatic brain injury Z87.820 Active 25554152628054 Problem Hyperlipidemia, unspecified hyperlipidemia type E78.5 Active 76485417 Problem Anemia, unspecified type D64.9 Active 316999421 Problem History of gout Z87.39 Active 930856970 Problem Glaucoma, unspecified glaucoma, unspecified laterality H40.9 Active 13795186 Problem Herpes B00.9 Active 48317444 Problem Weak urinary stream R39.12 Active 34583489 Problem Gastroesophageal reflux disease without esophagitis K21.9 Active 321682626 ALLERGIES Substance Reaction Event Type Date Status Prozac Unknown Drug Allergy 16 Feb, 2017 Active Penicillin V Potassium Unknown Drug Allergy Jun, Active Abilify Unknown Drug Allergy Jun, Active SOCIAL HISTORY Never Assessed PLAN OF CARE Activity Details Follow Up 2 Months Reason: VITAL SIGNS MEDICATIONS Medication Instructions Dosage Frequency Start Date End Date Duration Status Amitiza 24 MCG Orally Twice a day 1 capsule with food 12h Active Alfuzosin HCl ER 10 MG Orally Once a day 1 tablet immediately after the same meal 24h Active Travatan Z 0.004 % Ophthalmic Once a day 1 drop into affected eye in the evening 24h Active Fluticasone Propionate 50 MCG/ACT Nasally Once a day 1 spray in each nostril 24h Active Morphine Sulfate 30 MG Orally BID 12h Active Fluvoxamine Maleate 100 mg Orally twice a day 1 tablet 12h Active Latuda 60 MG Orally Once a day 1 tablet with food 24h Active Fish Oil 1000 MG Orally Once a day 4 capsules 24h Active Melatonin 3 MG Orally Once a day 2 tablets at bedtime as needed with food 24h Active Vitamin D 2000 UNIT Orally Once a day 1 tablet 24h Active Fluvoxamine Maleate 50 mg Orally daily in the afternoon 1 tablet Active MiraLax 17 gm/dose Orally Once a day 17 grams mixed in 8 oz of water or juice 24h Active Systane 0.4-0.3 % Ophthalmic at bedtime 1 drop into both eyes Active Effexor XR 37.5 MG Orally Once a day 1 capsule with food 24h Active Trazodone HCl 150 MG Orally Once a day 1 tablet at bedtime 24h Active Insulin Detemir 100 UNIT/ML Subcutaneous at bedtime 60 units Active Depakote Sprinkles 125 MG Orally 3 times a day 2 capsules 8h Active NovoLog Flexpen 100 UNIT/ML Subcutaneous before meals per sliding scale Active Allopurinol 300 MG Orally Once a day 1 tablet 24h Active Clonazepam 1 MG Orally every 8 hours 1 tablet 8h Active Verapamil HCl CR 180 MG Orally twice a day 1 tablet 12h Active RESULTS No Results PROCEDURES No Known procedures IMMUNIZATIONS No Known Immunizations MEDICAL (GENERAL) HISTORY Type Description Date Medical History History of traumatic brain injury Subdural hematoma from falling out of bed 2012 Medical History Type 2 diabetes mellitus with unspecified complications Medical History 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
--- OUTSIDE RECORDS SUMMARY | 2018-07-02 12:00 | XMS REPORT ---
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 Name Role Phone NICK FONSECA Unavailable PROBLEMS Type Condition ICD9-CM Code VEI00-PN Code Onset Dates Condition Status SNOMED Code Problem Essential hypertension I10 Active 07761795 Problem retirement current use of insulin Z79.4 Active 980515298 Problem Anxiety F41.9 Active 14209813 Problem Benign prostatic hyperplasia with lower urinary tract symptoms, unspecified morphology N40.1 Active 648865315 Problem Persistent migraine aura without cerebral infarction and without status migrainosus, not intractable G43.509 Active 932666337 Problem Intractable chronic migraine without aura and without status migrainosus G43.719 Active 529835144 Problem Type 2 diabetes mellitus with unspecified complications E11.8 Active 42765578 Problem 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 Active 28712699 Problem Chronic pain due to trauma G89.21 Active 580732949 Problem Recurrent major depressive disorder, in partial remission F33.41 Active 86971272 Problem Traumatic brain injury, without LOC, initial encounter S06.9X0A Active 617768230 Problem Rad (reactive airway disease), mild intermittent, uncomplicated J45.20 Active 726463189740 Problem Obsessive-compulsive disorder, unspecified type F42.9 Active 563558220 Problem History of traumatic brain injury Z87.820 Active 53796126860930 Problem Hyperlipidemia, unspecified hyperlipidemia type E78.5 Active 33970704 Problem Anemia, unspecified type D64.9 Active 188052770 Problem History of gout Z87.39 Active 785337717 Problem Glaucoma, unspecified glaucoma, unspecified laterality H40.9 Active 46660417 Problem Herpes B00.9 Active 73754413 Problem Weak urinary stream R39.12 Active 19006540 Problem Gastroesophageal reflux disease without esophagitis K21.9 Active 730988733 ALLERGIES No Information ENCOUNTERS Encounter Location Date Diagnosis [facility] [id number] [address] Oct, [facility] [address], [place] [address] September, Anxiety F41.9 ; Traumatic brain injury, without LOC, initial encounter S06.9X0A ; Intractable chronic migraine without aura and without status migrainosus G43.719 and Recurrent major depressive disorder, in partial remission F33.41 [place] [address] [place] [id number] September, Weight gain R63.5 and Type 2 diabetes mellitus with unspecified complications E11.8 [facility] [id number] [address] September, [facility] [address], [place] [address] Aug, [facility] [id number] [id number] Aug, [facility] [id number] [address] Aug, [facility] [id number] [address] Jul, Intractable chronic migraine without aura and without status migrainosus G43.719 [facility] [id number] [address] Jul, Intractable chronic migraine without aura and without status migrainosus G43.719 [facility] [address] [place] [id number] Jul, History of traumatic brain injury Z87.820 ; Recurrent major depressive disorder , in partial remission F33.41 and Type 2 diabetes mellitus with unspecified complications E11.8 [facility] [id number] [id number] Jul, [facility] [id number] [id number] Jul, Intractable chronic migraine without aura and without status migrainosus G43.719 [facility] [id number] [address] Jun, Anxiety F41.9 ; Traumatic brain injury, without LOC, initial encounter S06.9X0A ; Intractable chronic migraine without aura and without status migrainosus G43.719 and Recurrent major depressive disorder, in partial remission F33.41 [facility] [id number] [place] [id number] 13 Jun, 2017 [facility] [id number] [address] Jun, [facility] [id number] [place] [id number] Jun, Intractable chronic migraine without aura and without status migrainosus G43.719 [facility] [address] [place] [address] May, [facility] [address] [place] [id number] May, Recurrent major depressive disorder, in partial remission F33.41 ; Traumatic brain injury, without LOC, initial encounter S06.9X0A and Anxiety F41.9 [facility] [address], [place] [address] May, [facility] [id number] [id number] May, [facility] [address] [place] [id number] May, Intractable chronic migraine without aura and without status migrainosus G43.719 [facility] [id number] [place] [id number] Apr, Anxiety F41.9 ; Traumatic brain injury, without LOC, initial encounter S06.9X0A ; Intractable chronic migraine without aura and without status migrainosus G43.719 and Recurrent major depressive disorder, in partial remission F33.41 [facility] [id number] [address] Apr, [facility] [id number] [place] [id number] Apr, Intractable chronic migraine without aura and without status migrainosus G43.719 [facility] [address] [address] Apr, [facility] [address] [place] [address] Apr, [facility] [id number] [place] [id number] Mar, [facility] [address] [place] [address] Mar, [facility] [id number] [place] [address] [id number] Mar, [facility] [address] [place] [id number] Mar, Intractable chronic migraine without aura and without status migrainosus G43.719 [facility] [address] [place] [id number] 09 Mar, 2017 Encounter for examination for admission to correction Z02.2 ; History of traumatic brain injury Z87.820 ; Recurrent major depressive disorder, in partial remission F33.41 ; Anxiety F41.9 ; Obsessive-compulsive disorder, unspecified type F42.9 ; Essential hypertension I10 and Type 2 diabetes mellitus with unspecified complications E11.8 [facility] [id number] [id number] Feb, [facility] [id number] [address] Feb, Obsessive-compulsive disorder, unspecified type F42.9 ; Anxiety F41.9 and Recurrent major depressive disorder, in partial remission F33.41 [facility] [id number] [address] 27 Sep, 2017 Traumatic brain injury, without LOC, initial encounter S06.9X0A ; Intractable chronic migraine without aura and without status migrainosus G43.719 ; Anxiety F41.9 and Recurrent major depressive disorder, in partial remission F33.41 [facility] [id number] [address] 20 Jan, 2017 Intractable chronic migraine without aura and without status migrainosus G43.719 [facility] [address] [address] 19 Jan, 2017 History of traumatic brain injury Z87.820 ; Anxiety F41.9 and Recurrent major depressive disorder, in partial remission F33.41 [facility] [address], [place] [address] 13 Jan, 2017 [facility] [address] [id number] 07 Jan, 2017 History of traumatic brain injury Z87.820 and Obsessive-compulsive disorder, unspecified type F42.9 [facility] [id number] [address] 06 Jan, 2017 Traumatic brain injury, without LOC, initial encounter S06.9X0A ; Intractable chronic migraine without aura and without status migrainosus G43.719 ; Anxiety F41.9 and Recurrent major depressive disorder, in partial remission F33.41 [facility] [id number] [address] 05 Jan, 2017 History of traumatic brain injury Z87.820 ; Obsessive- compulsive disorder, unspecified type F42.9 ; Anxiety F41.9 and Recurrent major depressive disorder, in partial remission F33.41 [facility] [address] [id number] [id number] Dec, [facility] [id number] [address] Dec, Intractable chronic migraine without aura and without status migrainosus G43.719 [facility] [address] [id number] Dec, Type 2 diabetes mellitus with unspecified complications E11.8 and Essential hypertension I10 [facility] [address] [place] [address] Dec, Traumatic brain injury, without LOC, initial encounter S06.9X0A [facility] [address] [place] [address] 16 Dec, 2016 Traumatic brain injury, without LOC, initial encounter S06.9X0A ; Intractable chronic migraine without aura and without status migrainosus G43.719 ; Anxiety F41.9 and Recurrent major depressive disorder, in partial remission F33.41 [place] [id number] [place] [address] Dec, [facility] [id number] [place] [address] Dec, History of traumatic brain injury Z87.820 ; Obsessive- compulsive disorder, unspecified type F42.9 ; Anxiety F41.9 and Recurrent major depressive disorder, in partial remission F33.41 [facility] [address] [place] [address] 09 Dec, 2016 Traumatic brain injury, without LOC, initial encounter S06.9X0A [facility] [address] [place] [address] Dec, Anxiety F41.9 and Recurrent major depressive disorder, in partial remission F33.41 [facility] [address] [place] [address] 02 Dec, 2016 Traumatic brain injury, without LOC, initial encounter S06.9X0A ; Intractable chronic migraine without aura and without status migrainosus G43.719 ; Anxiety F41.9 and Recurrent major depressive disorder, in partial remission F33.41 [facility] [address] [place] [address] Dec, [facility] [id number] [place] [id number] Nov, Intractable chronic migraine without aura and without status migrainosus G43.719 [facility] [address] [id number] Nov, Obsessive-compulsive disorder, unspecified type F42.9 ; Anxiety F41.9 and Intractable chronic migraine without aura and without status migrainosus G43.719 [facility] [address] [facility] [id number] [address] Nov, Traumatic brain injury, without LOC, initial encounter S06.9X0A ; Intractable chronic migraine without aura and without status migrainosus G43.719 ; Anxiety F41.9 and Recurrent major depressive disorder, in partial remission F33.41 [facility] [address] [id number] [id number] Nov, [facility] [address] [facility] [id number] [address] Nov, Anxiety F41.9 and Recurrent major depressive disorder, in partial remission F33.41 [facility] [address] [facility] [id number] [address] Nov, [facility] [id number] [place] [id number] Nov, [facility] [id number], [place] [address] Oct, [facility] [id number] [address] Oct, Anxiety F41.9 and Recurrent major depressive disorder, in partial remission F33.41 [facility] [address] [facility] [id number] [address] Oct, [facility] [address] [facility] [id number] [address] September, Anxiety F41.9 and Recurrent major depressive disorder, in partial remission F33.41 [facility] [address] [facility] [id number] [address] September, Traumatic brain injury, without LOC, initial encounter S06.9X0A ; Intractable chronic migraine without aura and without status migrainosus G43.719 ; Anxiety F41.9 and Recurrent major depressive disorder, in partial remission F33.41 [facility] [address], [place] [address] September, [facility] [address] [place] [address] September, Anxiety F41.9 [facility] [id number] [place] [address] September, [facility] [id number] [place] [address] [id number] September, Type 2 diabetes mellitus with unspecified complications E11.8 [facility] [id number] [place] [address] [id number] September, Type 2 diabetes mellitus with unspecified complications E11.8 [facility] [address] [place] [address] [id number] September, Essential hypertension I10 and History of traumatic brain injury Z87.820 [facility] [address] [place] [address] Aug, [facility] [address] [place] [id number] Aug, Type 2 diabetes mellitus with unspecified complications E11.8 and Benign prostatic hyperplasia with lower urinary tract symptoms, unspecified morphology N40.1 [facility] [id number][place] [id number] Aug, [facility] [address] [address] Aug, [facility] [address] [place] [address] Jul, Traumatic brain injury, without LOC, initial encounter S06.9X0A ; Intractable chronic migraine without aura and without status migrainosus G43.719 ; Anxiety F41.9 and Recurrent major depressive disorder, in partial remission F33.41 [facility] [id number], [place] [address] Jul, [facility] [address], [place] [address] Jul, [facility] [id number], [place] [id number] Jun, [facility] [address] [address] Jun, [facility] [id number] [address] Jun, [facility] and [address] [id number] Jun, Encounter to establish care Z76.89 [facility] [address], [place] [address] Jun, [facility] [address] [address] Jun, [facility] [id number] [address] Jun, [facility] [id number] [address] Jun, [facility] [address] [id number] [place] [id number] May, Dental examination Z01.20 [facility] [place] [address] [id number] [place] [id number] Dec, Dental examination Z01.20 [facility] [place] [address] [id number] [place] [id number] September, Dental examination Z01.20 [facility] [place] [address] [id number] [place] [id number] Dec, Dental examination V72.2 [facility] [id number] [address] Aug, [facility] [address] [facility] [id number] [address] Aug, [facility] [id number] [address] Apr, [facility] [id number] [address] Nov, [facility] [address] [address] Nov, [facility] [id number] [address] Nov, [facility] [address], [place] [address] Nov, [facility] [id number] [address] Oct, [facility] [id number] [address] May, [facility] [id number] [address] May, IMMUNIZATIONS No Known Immunizations SOCIAL HISTORY Never Assessed REASON FOR VISIT trouble sleeping PLAN OF CARE VITAL SIGNS MEDICATIONS Unknown Medications RESULTS No Results PROCEDURES No Known procedures INSTRUCTIONS MEDICATIONS ADMINISTERED No Known Medications MEDICAL (GENERAL) HISTORY Type Description Date Medical History History of traumatic brain injury Subdural hematoma from falling out of bed 2012 Medical History Type 2 diabetes mellitus with unspecified complications Medical 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
--- OUTSIDE RECORDS SUMMARY | 2018-07-02 12:00 | XMS REPORT ---
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 Active 904300403 Problem Anxiety F41.9 Active 40449288 Problem Benign prostatic hyperplasia with lower urinary tract symptoms, unspecified morphology N40.1 Active 798278046 Problem Persistent migraine aura without cerebral infarction and without status migrainosus, not intractable G43.509 Active 483711542 Problem Intractable chronic migraine without aura and without status migrainosus G43.719 Active 460517644 Problem Type 2 diabetes mellitus with unspecified complications E11.8 Active 59529226 Problem 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 Active 80170545 Problem Chronic pain due to trauma G89.21 Active 043815796 Problem Recurrent major depressive disorder, in partial remission F33.41 Active 04155160 Problem Traumatic brain injury, without LOC, initial encounter S06.9X0A Active 884369979 Problem Rad (reactive airway disease), mild intermittent, uncomplicated J45.20 Active 337599524065 Problem Obsessive-compulsive disorder, unspecified type F42.9 Active 268680218 Problem History of traumatic brain injury Z87.820 Active 58493298046311 Problem Hyperlipidemia, unspecified hyperlipidemia type E78.5 Active 09073209 Problem Anemia, unspecified type D64.9 Active 886736942 Problem History of gout Z87.39 Active 725459326 Problem Glaucoma, unspecified glaucoma, unspecified laterality H40.9 Active 06786297 Problem Herpes B00.9 Active 32347861 Problem Weak urinary stream R39.12 Active 05028292 Problem Gastroesophageal reflux disease without esophagitis K21.9 Active 962437998 ALLERGIES No Information ENCOUNTERS Encounter Location Date Diagnosis [facility] [id number], [place] [address] Oct, [facility] [address], [place] [address] September, Anxiety F41.9 ; Traumatic brain injury, without LOC, initial encounter S06.9X0A ; Intractable chronic migraine without aura and without status migrainosus G43.719 and Recurrent major depressive disorder, in partial remission F33.41 [place] [address] [place] [id number] September, Weight gain R63.5 and Type 2 diabetes mellitus with unspecified complications E11.8 [facility] [id number], [place] [address] September, [facility] [address], [place] [address] Aug, [facility] [id number] [id number] Aug, [facility] [id number], [place] [address] Aug, [facility] [address], [place] [address] Jul, Intractable chronic migraine without aura and without status migrainosus G43.719 [facility] [id number], [place] [address] Jul, Intractable chronic migraine without aura and without status migrainosus G43.719 [place] [address] [place] [id number] Jul, History of traumatic brain injury Z87.820 ; Recurrent major depressive disorder , in partial remission F33.41 and Type 2 diabetes mellitus with unspecified complications E11.8 [facility] [id number] [id number] Jul, [facility] [id number] [id number] Jul, Intractable chronic migraine without aura and without status migrainosus G43.719 [facility] [id number] [address] Jun, Anxiety F41.9 ; Traumatic brain injury, without LOC, initial encounter S06.9X0A ; Intractable chronic migraine without aura and without status migrainosus G43.719 and Recurrent major depressive disorder, in partial remission F33.41 [facility] [id number] [place] [id number] Jun, [facility] [id number] [place] [address] [id number]- [address] Jun, [facility] [id number] [place] [address] [id number] Jun, Intractable chronic migraine without aura and without status migrainosus G43.719 [facility] [address] [place] [address] May, [facility] [address] [place] [phone] May, Recurrent major depressive disorder, in partial remission F33.41 ; Traumatic brain injury, without LOC, initial encounter S06.9X0A and Anxiety F41.9 [facility] [address] [place] [address] May, [facility] [id number] [place] [id number] May, [facility] [address] [place] [address] May, Intractable chronic migraine without aura and without status migrainosus G43.719 [facility] [id number] [place] [id number] Apr, Anxiety F41.9 ; Traumatic brain injury, without LOC, initial encounter S06.9X0A ; Intractable chronic migraine without aura and without status migrainosus G43.719 and Recurrent major depressive disorder, in partial remission F33.41 [facility] [id number], [place] [address] Apr, [facility] [id number] [place] [id number] Apr, Intractable chronic migraine without aura and without status migrainosus G43.719 [facility] [address], [place] [address] Apr, [facility] [id number] [place] [address] Apr, [facility] [id number] [place] [address] [id number] Mar, [facility] [address] [place] [address] 681337[address] Mar, [facility] [id number] [place] [address] [id number] Mar, [facility] [address] [place] [phone] Mar, Intractable chronic migraine without aura and without status migrainosus G43.719 [facility] [address] [place] [id number] Mar, Encounter for examination for admission to custodial Z02.2 ; History of traumatic brain injury Z87.820 ; Recurrent major depressive disorder, in partial remission F33.41 ; Anxiety F41.9 ; Obsessive-compulsive disorder, unspecified type F42.9 ; Essential hypertension I10 and Type 2 diabetes mellitus with unspecified complications E11.8 [facility] [id number] [id number] Feb, [facility] [id number] [place] [address] Feb, Obsessive-compulsive disorder, unspecified type F42.9 ; Anxiety F41.9 and Recurrent major depressive disorder, in partial remission F33.41 [facility] [id number], [place] [address] Jan, Traumatic brain injury, without LOC, initial encounter S06.9X0A ; Intractable chronic migraine without aura and without status migrainosus G43.719 ; Anxiety F41.9 and Recurrent major depressive disorder, in partial remission F33.41 [place] [address] [place] [address] 20 Jan, 2017 Intractable chronic migraine without aura and without status migrainosus G43.719 [place] [address] [place] [address] 19 Jan, 2017 History of traumatic brain injury Z87.820 ; Anxiety F41.9 and Recurrent major depressive disorder, in partial remission F33.41 [place] [address] [place] [address] 13 Jan, 2017 [facility] [address] [place] [id number] Jan, History of traumatic brain injury Z87.820 and Obsessive-compulsive disorder, unspecified type F42.9 [place] [address] [place] [address] 06 Jan, 2017 Traumatic brain injury, without LOC, initial encounter S06.9X0A ; Intractable chronic migraine without aura and without status migrainosus G43.719 ; Anxiety F41.9 and Recurrent major depressive disorder, in partial remission F33.41 [place] [address], [place] [address] 05 Jan, 2017 History of traumatic brain injury Z87.820 ; Obsessive- compulsive disorder, unspecified type F42.9 ; Anxiety F41.9 and Recurrent major depressive disorder, in partial remission F33.41 [facility] [id number] [id number] Dec, [place] [id number] [place] [id number] Dec, Intractable chronic migraine without aura and without status migrainosus G43.719 [facility] [address] [place] [id number] Dec, Type 2 diabetes mellitus with unspecified complications E11.8 and Essential hypertension I10 [facility] [address], [place] [address] 18 Dec, 2016 Traumatic brain injury, without LOC, initial encounter S06.9X0A [facility] [address], [place] [address] 16 Dec, 2016 Traumatic brain injury, without LOC, initial encounter S06.9X0A ; Intractable chronic migraine without aura and without status migrainosus G43.719 ; Anxiety F41.9 and Recurrent major depressive disorder, in partial remission F33.41 [facility] [id number] [place] [address] 15 Dec, 2016 [facility] [id number] [place] [address] Dec, History of traumatic brain injury Z87.820 ; Obsessive- compulsive disorder, unspecified type F42.9 ; Anxiety F41.9 and Recurrent major depressive disorder, in partial remission F33.41 [facility] [address] [place] [address] 09 Dec, 2016 Traumatic brain injury, without LOC, initial encounter S06.9X0A [facility] [address] [place] [address]- 9751 03 Dec, 2016 Anxiety F41.9 and Recurrent major depressive disorder, in partial remission F33.41 [facility] [address], [place] [address] 02 Dec, 2016 Traumatic brain injury, without LOC, initial encounter S06.9X0A ; Intractable chronic migraine without aura and without status migrainosus G43.719 ; Anxiety F41.9 and Recurrent major depressive disorder, in partial remission F33.41 [facility] [address], [place] [address] Dec, [facility] [id number] [place] [address] [id number] Nov, Intractable chronic migraine without aura and without status migrainosus G43.719 [facility] [address] [place] [id number] Nov, Obsessive-compulsive disorder, unspecified type F42.9 ; Anxiety F41.9 and Intractable chronic migraine without aura and without status migrainosus G43.719 [facility] [id number], [place] [address] Nov, Traumatic brain injury, without LOC, initial encounter S06.9X0A ; Intractable chronic migraine without aura and without status migrainosus G43.719 ; Anxiety F41.9 and Recurrent major depressive disorder, in partial remission F33.41 [facility] [id number] [place] [address] [id number] Nov, [facility] [id number], [place] [address] Nov, Anxiety F41.9 and Recurrent major depressive disorder, in partial remission F33.41 [facility] [id number], [place] [address] Nov, [facility] [id number] [place] [address] [id number] Nov, [facility] [id number], [place] [address] Oct, [facility] [id number], [place] [address] Oct, Anxiety F41.9 and Recurrent major depressive disorder, in partial remission F33.41 [facility] [id number], [place] [address] Oct, [facility] [id number], [place] [address] September, Anxiety F41.9 and Recurrent major depressive disorder, in partial remission F33.41 [facility] [id number], [place] [address] September, Traumatic brain injury, without LOC, initial encounter S06.9X0A ; Intractable chronic migraine without aura and without status migrainosus G43.719 ; Anxiety F41.9 and Recurrent major depressive disorder, in partial remission F33.41 [facility] [address] [place] [address]- 1027 September, [facility] [address] [place] [address]222- 0154 September, Anxiety F41.9 [facility] [id number] [place] [address]87- 0015 September, [facility] [id number] [place] [address] [id number] September, Type 2 diabetes mellitus with unspecified complications E11.8 [place] [id number] [place] [address] [id number] September, Type 2 diabetes mellitus with unspecified complications E11.8 [facility] [address] [place] [address] [id number] September, Essential hypertension I10 and History of traumatic brain injury Z87.820 [place] [id number] [place] [address]23- 7912 Aug, [facility] [address] [place] [address] [id number] Aug, Type 2 diabetes mellitus with unspecified complications E11.8 and Benign prostatic hyperplasia with lower urinary tract symptoms, unspecified morphology N40.1 [facility] [id number] [place] [address] [id number] Aug, [facility] [address] [place] [address] 88785- 7389 Aug, [facility] [id number] [place] [address] 82970- 3848 Jul, Traumatic brain injury, without LOC, initial encounter S06.9X0A ; Intractable chronic migraine without aura and without status migrainosus G43.719 ; Anxiety F41.9 and Recurrent major depressive disorder, in partial remission F33.41 [facility] [address], [place] [address] Jul, [facility] [address], [place] [address] Jul, [place] [facility] [id number] [id number] Jun, [facility] [address], [place] [address] 3[address] Jun, [facility] [id number], [place] [address] Jun, [facility] [address] [id number] Jun, Encounter to establish care Z76.89 [facility] [address], [place] [address]- [address] Jun, [facility] [address], [place] [address]- 277[address] Jun, [facility] [id number], [place] [address] Jun, [facility] [id number], [place] [address] Jun, [facility] [place] [address] [id number] [place] [id number] May, Dental examination Z01.20 [facility] [place] [address] [id number] [place] [id number] Dec, Dental examination Z01.20 [facility] [place] [address] [id number] [place] [id number] September, Dental examination Z01.20 [facility] [place] [address] [id number] [place] [id number] Dec, Dental examination V72.2 [facility] [place] [id number], [place] [address] Aug, [facility] [id number], [place] [address] Aug, [facility] [id number], [place] [address]- 9676 Apr, [facility] [id number], [place] [address] Nov, [facility] [address], [place] [address]- 8[address] Nov, [facility] [id number], [place] [address]- 5[address] Nov, [facility] [address], [place] [address]- 1846 Nov, [facility] [id number], [place] [address]- 1456 Oct, [facility] [id number], [place] [address]- [address] May, [facility] [id number], [place] [address] May, IMMUNIZATIONS No Known Immunizations SOCIAL HISTORY Never Assessed REASON FOR VISIT Refill request PLAN OF CARE VITAL SIGNS MEDICATIONS Unknown Medications RESULTS No Results PROCEDURES No Known procedures INSTRUCTIONS MEDICATIONS ADMINISTERED No Known Medications MEDICAL (GENERAL) HISTORY Type Description Date Medical History History of traumatic brain injury Subdural hematoma from falling out of bed 2012 Medical History Type 2 diabetes mellitus with unspecified complications Medical History intermediate current use of insulin Medical 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 elbow Hospitalization History left ankle Hospitalization History [facility]
--- OUTSIDE RECORDS SUMMARY | 2018-07-02 12:00 | XMS REPORT ---
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 Active 737479198 Problem Anxiety F41.9 Active 25423634 Problem Benign prostatic hyperplasia with lower urinary tract symptoms, unspecified morphology N40.1 Active 572115406 Problem Persistent migraine aura without cerebral infarction and without status migrainosus, not intractable G43.509 Active 232086762 Problem Intractable chronic migraine without aura and without status migrainosus G43.719 Active 581629899 Problem Type 2 diabetes mellitus with unspecified complications E11.8 Active 26133759 Problem 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 Active 50069411 Problem Chronic pain due to trauma G89.21 Active 772027188 Problem Recurrent major depressive disorder, in partial remission F33.41 Active 55017363 Problem Traumatic brain injury, without LOC, initial encounter S06.9X0A Active 976703392 Problem Rad (reactive airway disease), mild intermittent, uncomplicated J45.20 Active 847856946147 Problem Obsessive-compulsive disorder, unspecified type F42.9 Active 448609873 Problem History of traumatic brain injury Z87.820 Active 52707091134876 Problem Hyperlipidemia, unspecified hyperlipidemia type E78.5 Active 40653293 Problem Anemia, unspecified type D64.9 Active 644457022 Problem History of gout Z87.39 Active 751352863 Problem Glaucoma, unspecified glaucoma, unspecified laterality H40.9 Active 05269883 Problem Herpes B00.9 Active 30572419 Problem Weak urinary stream R39.12 Active 25531573 Problem Gastroesophageal reflux disease without esophagitis K21.9 Active 947123846 ALLERGIES No Information SOCIAL HISTORY Never Assessed PLAN OF CARE VITAL SIGNS MEDICATIONS Medication Instructions Dosage Frequency Start Date End Date Duration Status Morphine Sulfate ER 30 MG Orally every 12 hrs 1 tablet 12h 15 Jul, 2016 Aug, 28 days Active RESULTS No Results PROCEDURES [...]
--- OUTSIDE RECORDS SUMMARY | 2018-07-02 12:00 | XMS REPORT ---
Author Author NICK FONSECA Organization [facility] Address [address] [place] [address] Care Team Providers Care Germination Worker Name Role Phone NICK FONSECA Unavailable PROBLEMS Type Condition ICD9-CM Code NEM84-TK Code Onset Dates Condition Status SNOMED Code Problem Essential hypertension I10 Active 60911167 Problem long-term current use of insulin Z79.4 Active 517655383 Problem Anxiety F41.9 Active 73733157 Problem Benign prostatic hyperplasia with lower urinary tract symptoms, unspecified morphology N40.1 Active 493324685 Problem Persistent migraine aura without cerebral infarction and without status migrainosus, not intractable G43.509 Active 244056664 Problem Intractable chronic migraine without aura and without status migrainosus G43.719 Active 357055811 Problem Type 2 diabetes mellitus with unspecified complications E11.8 Active 42219583 Problem 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 Active 32573175 Problem Chronic pain due to trauma G89.21 Active 263227234 Problem Recurrent major depressive disorder, in partial remission F33.41 Active 73337987 Problem Traumatic brain injury, without LOC, initial encounter S06.9X0A Active 429001169 Problem Rad (reactive airway disease), mild intermittent, uncomplicated J45.20 Active 436089855542 Problem Obsessive-compulsive disorder, unspecified type F42.9 Active 516827182 Problem History of traumatic brain injury Z87.820 Active 62043680356507 Problem Hyperlipidemia, unspecified hyperlipidemia type E78.5 Active 40569513 Problem Anemia, unspecified type D64.9 Active 262559597 Problem History of gout Z87.39 Active 875882810 Problem Glaucoma, unspecified glaucoma, unspecified laterality H40.9 Active 21712240 Problem Herpes B00.9 Active 96968913 Problem Weak urinary stream R39.12 Active 20480037 Problem Gastroesophageal reflux disease without esophagitis K21.9 Active 297108992 ALLERGIES No Information ENCOUNTERS Encounter Location Date Diagnosis [facility] [address] [facility] [id number] [address] September, [facility] [address] [facility] [id number] [place] [id number] Aug, [facility] [address] [id number] [address] Aug, [facility] [address] [id number] [address] Jul, Intractable chronic migraine without aura and without status migrainosus G43.719 [facility] [address] [id number] [address] Jul, Intractable chronic migraine without aura and without status migrainosus G43.719 [facility] [address] [place] [id number] Jul, History of traumatic brain injury Z87.820 ; Recurrent major depressive disorder , in partial remission F33.41 and Type 2 diabetes mellitus with unspecified complications E11.8 [facility] [address] [id number] [place] [id number] Jul, [facility] [id number] [place] [id number] Jul, Intractable chronic migraine without aura and without status migrainosus G43.719 [facility] [address] [id number] [address] Jun, Anxiety F41.9 ; Traumatic brain injury, without LOC, initial encounter S06.9X0A ; Intractable chronic migraine without aura and without status migrainosus G43.719 and Recurrent major depressive disorder, in partial remission F33.41 [facility] [id number] [place] [id number] 13 Jun, 2017 [facility] [address] [id number] [address] Jun, [facility] [address] [id number] [id number] Jun, Intractable chronic migraine without aura and without status migrainosus G43.719 [facility] [address] [id number] [address] May, [facility] [address] [place] [id number] May, Recurrent major depressive disorder, in partial remission F33.41 ; Traumatic brain injury, without LOC, initial encounter S06.9X0A and Anxiety F41.9 [facility] [id number] [place] [address] May, [facility] [id number] [place] [address] [id number] May, [facility] [id number] [place] [address] 6987 May, Intractable chronic migraine without aura and without status migrainosus G43.719 [facility] [id number] [place] [address]- 20[address] Apr, Anxiety F41.9 ; Traumatic brain injury, without LOC, initial encounter S06.9X0A ; Intractable chronic migraine without aura and without status migrainosus G43.719 and Recurrent major depressive disorder, in partial remission F33.41 [facility] [address] [id number] [address] Apr, [facility] [id number] [place] [address] [id number] Apr, Intractable chronic migraine without aura and without status migrainosus G43.719 [facility] [address] [id number] [address] Apr, [facility] [id number] [place] [id number]- [address]79 Apr, [facility] [id number] [place] [id number] Mar, [facility] [id number] [place] [address] Mar, [facility] [id number] [place] [id number] Mar, [place] [address] [place] [address] Mar, Intractable chronic migraine without aura and without status migrainosus G43.719 [facility] [address] [place] [id number] Mar, Encounter for examination for admission to fdc Z02.2 ; History of traumatic brain injury Z87.820 ; Recurrent major depressive disorder, in partial remission F33.41 ; Anxiety F41.9 ; Obsessive-compulsive disorder, unspecified type F42.9 ; Essential hypertension I10 and Type 2 diabetes mellitus with unspecified complications E11.8 [facility] [id number] [place] [id number] Feb, [place] [id number] [place] [address] Feb, Obsessive-compulsive disorder, unspecified type F42.9 ; Anxiety F41.9 and Recurrent major depressive disorder, in partial remission F33.41 [place] [id number] [place] [address] 27 Jan, 2017 Traumatic brain injury, without LOC, initial encounter S06.9X0A ; Intractable chronic migraine without aura and without status migrainosus G43.719 ; Anxiety F41.9 and Recurrent major depressive disorder, in partial remission F33.41 [place] [address] [id number] [address] 20 Jan, 2017 Intractable chronic migraine without aura and without status migrainosus G43.719 [place] [address] [place] [address]- [address]97 19 Jan, 2017 History of traumatic brain injury Z87.820 ; Anxiety F41.9 and Recurrent major depressive disorder, in partial remission F33.41 [place] [id number] [place] [address] 13 Jan, 2017 [facility] [address] [place] [id number] 07 Jan, 2017 History of traumatic brain injury Z87.820 and Obsessive-compulsive disorder, unspecified type F42.9 [facility] [address]00565100[place] [address] 06 Jan, 2017 Traumatic brain injury, without LOC, initial encounter S06.9X0A ; Intractable chronic migraine without aura and without status migrainosus G43.719 ; Anxiety F41.9 and Recurrent major depressive disorder, in partial remission F33.41 [facility] [address] [id number] [address] 05 Jan, 2017 History of traumatic brain injury Z87.820 ; Obsessive- compulsive disorder, unspecified type F42.9 ; Anxiety F41.9 and Recurrent major depressive disorder, in partial remission F33.41 [facility] [id number] [place] [id number] 31 Dec, 2016 [facility] [id number] [place] [address] [id number] Dec, Intractable chronic migraine without aura and without status migrainosus G43.719 [facility] [address] [place] [id number] Dec, Type 2 diabetes mellitus with unspecified complications E11.8 and Essential hypertension I10 [facility] [address] [id number] [address] Dec, Traumatic brain injury, without LOC, initial encounter S06.9X0A [facility] [address] [id number] [address] 16 Dec, 2016 Traumatic brain injury, without LOC, initial encounter S06.9X0A ; Intractable chronic migraine without aura and without status migrainosus G43.719 ; Anxiety F41.9 and Recurrent major depressive disorder, in partial remission F33.41 [facility] [address] [id number] [address] 15 Dec, 2016 [facility] [address] [id number] [address] Dec, History of traumatic brain injury Z87.820 ; Obsessive- compulsive disorder, unspecified type F42.9 ; Anxiety F41.9 and Recurrent major depressive disorder, in partial remission F33.41 [facility] [address] [id number] [address] Dec, Traumatic brain injury, without LOC, initial encounter S06.9X0A [facility] [address]00565100[place] [address] Dec, Anxiety F41.9 and Recurrent major depressive disorder, in partial remission F33.41 [place] [address] [place] [address] 02 Dec, 2016 Traumatic brain injury, without LOC, initial encounter S06.9X0A ; Intractable chronic migraine without aura and without status migrainosus G43.719 ; Anxiety F41.9 and Recurrent major depressive disorder, in partial remission F33.41 [place] [address]00565100[place] [address] Dec, [facility] [id number] [place] [address] [id number] Nov, Intractable chronic migraine without aura and without status migrainosus G43.719 [facility] [address] [place] [id number] Nov, Obsessive-compulsive disorder, unspecified type F42.9 ; Anxiety F41.9 and Intractable chronic migraine without aura and without status migrainosus G43.719 [facility] [address] [id number] [address] Nov, Traumatic brain injury, without LOC, initial encounter S06.9X0A ; Intractable chronic migraine without aura and without status migrainosus G43.719 ; Anxiety F41.9 and Recurrent major depressive disorder, in partial remission F33.41 [facility] [id number] [place] [id number] Nov, [facility] [address] [id number] [address] Nov, Anxiety F41.9 and Recurrent major depressive disorder, in partial remission F33.41 [facility] [address]005[address] [address] Nov, [facility] [address] [id number] [id number] Nov, [facility] [address] [address] Oct, [facility] [address] [place] [address]41- 3516 Oct, Anxiety F41.9 and Recurrent major depressive disorder, in partial remission F33.41 [facility] [address] [address] Oct, [facility] [address] [address] September, Anxiety F41.9 and Recurrent major depressive disorder, in partial remission F33.41 [facility] [address]005[address]100[place] [address] September, Traumatic brain injury, without LOC, initial encounter S06.9X0A ; Intractable chronic migraine without aura and without status migrainosus G43.719 ; Anxiety F41.9 and Recurrent major depressive disorder, in partial remission F33.41 [facility] [address]100[place] [address] September, [facility] [address] [address]207 September, Anxiety F41.9 [facility] [address] [address] 1488 September, [facility] [id number] [place] [id number] September, Type 2 diabetes mellitus with unspecified complications E11.8 [facility] [id number] [place] [address] September, Type 2 diabetes mellitus with unspecified complications E11.8 [facility] [address] [place] [id number] September, Essential hypertension I10 and History of traumatic brain injury Z87.820 [facility] [address] [place] [id number]- [address]604 Aug, [facility] [address] [place] [id number] Aug, Type 2 diabetes mellitus with unspecified complications E11.8 and Benign prostatic hyperplasia with lower urinary tract symptoms, unspecified morphology N40.1 [facility] [address] [id number] [address] Aug, [facility] [address] [address] Aug, [facility] [address] [place] [address] [id number]- 4997 Jul, Traumatic brain injury, without LOC, initial encounter S06.9X0A ; Intractable chronic migraine without aura and without status migrainosus G43.719 ; Anxiety F41.9 and Recurrent major depressive disorder, in partial remission F33.41 [facility] [address] [address] Jul, [facility] [address] [address] 9141 Jul, [facility] [id number] [place] [address] [id number] Jun, [facility] [id number] [place] [address] [id number]- 6677 Jun, [facility] [address] [address] Jun, [facility] [address] [place] [address] [id number] Jun, Encounter to establish care Z76.89 [facility] [address] [id number] [place] [address]- [address] Jun, [facility] [address] [facility] [id number] [place] [address] Jun, [facility] [address] [facility] [id number] [place] [address] 2546 Jun, [facility] [address] [facility] [id number] [place] [address] 2546 Jun, [facility] [place] [address] [id number] [place] [id number] May, Dental examination Z01.20 [facility] [place] [address] [id number] [place] [id number] Dec, Dental examination Z01.20 [facility] [place] [address] [id number] [place] [id number] September, Dental examination Z01.20 [facility] [place] [address] [id number] [place] [id number] Dec, Dental examination V72.2 [facility] [address] [facility] [id number] [place] [address]- [address] Aug, [facility] [address] [id number] [address]- 9126 Aug, [facility] [address] [id number] [address]- 2926 Apr, [facility] [address] [facility] [id number] [place] [address]- 9[address] Nov, [facility] [address] [facility] [id number] [place] [address]- 3186 Nov, [facility] [address] [facility] [id number] [place] [address]- 2616 Nov, [facility] [address] [id number] [address]- 57[address] Nov, [facility] [address] [facility] [id number] [place] [address]- 2546 Oct, [facility] [address] [facility] [id number] [place] [address]- 2546 May, [facility] [address] [facility] [id number] [place] [address]- [address]356 May, IMMUNIZATIONS No Known Immunizations SOCIAL HISTORY Never Assessed REASON FOR VISIT increased agitation PLAN OF CARE VITAL SIGNS MEDICATIONS Medication Instructions Dosage Frequency Start Date End Date Duration Status Zyprexa 5 mg Orally Once a day 1 tablet 24h Dec, 14 days Active RESULTS No Results PROCEDURES No [...] elbow Hospitalization History left ankle Hospitalization History [facility]
--- OUTSIDE RECORDS SUMMARY | 2018-07-02 12:01 | XMS REPORT ---
Author Author JEANNE GAMBOA [facility] Address [address] [place] [address] Care Team Providers Care Manager Appointment Name Role Phone COOPERJEANNE Unavailable PROBLEMS Type Condition ICD9-CM Code EPS60-TV Code Onset Dates Condition Status SNOMED Code Problem Essential hypertension I10 Active 69113445 Problem intermediate current use of insulin Z79.4 Active 665968741 Problem Anxiety F41.9 Active 32356580 Problem Benign prostatic hyperplasia with lower urinary tract symptoms, unspecified morphology N40.1 Active 504797957 Problem Persistent migraine aura without cerebral infarction and without status migrainosus, not intractable G43.509 Active 169210652 Problem Intractable chronic migraine without aura and without status migrainosus G43.719 Active 423344557 Problem Type 2 diabetes mellitus with unspecified complications E11.8 Active 51487044 Problem 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 Active 92936900 Problem Chronic pain due to trauma G89.21 Active 952506108 Problem Recurrent major depressive disorder, in partial remission F33.41 Active 78767457 Problem Traumatic brain injury, without LOC, initial encounter S06.9X0A Active 891979213 Problem Rad (reactive airway disease), mild intermittent, uncomplicated J45.20 Active 091967081763 Problem Obsessive-compulsive disorder, unspecified type F42.9 Active 755135596 Problem History of traumatic brain injury Z87.820 Active 46128838998789 Problem Hyperlipidemia, unspecified hyperlipidemia type E78.5 Active 25547564 Problem Anemia, unspecified type D64.9 Active 623387659 Problem History of gout Z87.39 Active 809687554 Problem Glaucoma, unspecified glaucoma, unspecified laterality H40.9 Active 86836268 Problem Herpes B00.9 Active 21257911 Problem Weak urinary stream R39.12 Active 12990701 Problem Gastroesophageal reflux disease without esophagitis K21.9 Active 898648107 ALLERGIES Substance Reaction Event Type Date Status Prozac Unknown Drug Allergy Apr, Active Penicillin V Potassium Unknown Drug Allergy Apr, Active Abilify Unknown Drug Allergy Apr, Active ENCOUNTERS Encounter Location Date Diagnosis [facility] [address] [address] Oct, [facility] [address] [address] Oct, [facility] [address] [address] Oct, [facility] [address] [address] Oct, [place] [id number] [place] [address] September, Anxiety F41.9 ; Traumatic brain injury, without LOC, initial encounter S06.9X0A ; Intractable chronic migraine without aura and without status migrainosus G43.719 and Recurrent major depressive disorder, in partial remission F33.41 [facility] [address] [place] [id number] September, Weight gain R63.5 and Type 2 diabetes mellitus with unspecified complications E11.8 [place] [address] [address] September, [facility] [id number] [address] Aug, [facility] [address] [facility] [id number] [place] [id number] Aug, [facility] [id number] [address] Aug, [facility] [id number] [address] Jul, Intractable chronic migraine without aura and without status migrainosus G43.719 [facility] [id number] [address] Jul, Intractable chronic migraine without aura and without status migrainosus G43.719 [facility] [address] [place] [id number] Jul, History of traumatic brain injury Z87.820 ; Recurrent major depressive disorder , in partial remission F33.41 and Type 2 diabetes mellitus with unspecified complications E11.8 [facility] [address] [id number] [id number] Jul, [facility] [address] [id number] [id number] Jul, Intractable chronic migraine without aura and without status migrainosus G43.719 [facility] [address] [facility] [id number] [address] Jun, Anxiety F41.9 ; Traumatic brain injury, without LOC, initial encounter S06.9X0A ; Intractable chronic migraine without aura and without status migrainosus G43.719 and Recurrent major depressive disorder, in partial remission F33.41 [facility] [address] [id number] [id number] Jun, [facility] [address] [facility] [id number] [place] [address] Jun, [facility] [address] [id number] [id number] Jun, Intractable chronic migraine without aura and without status migrainosus G43.719 [facility] [id number] [address] May, [facility] [address] [place] [id number] May, Recurrent major depressive disorder, in partial remission F33.41 ; Traumatic brain injury, without LOC, initial encounter S06.9X0A and Anxiety F41.9 [facility] [id number] [address] May, [facility] [address] [id number] [place] [id number] May, [facility] [address] [address] May, Intractable chronic migraine without aura and without status migrainosus G43.719 [facility] [address] [place] [address] Apr, Anxiety F41.9 ; Traumatic brain injury, without LOC, initial encounter S06.9X0A ; Intractable chronic migraine without aura and without status migrainosus G43.719 and Recurrent major depressive disorder, in partial remission F33.41 [facility] [id number] [address] Apr, [facility] [id number] [place] [id number] Apr, Intractable chronic migraine without aura and without status migrainosus G43.719 [facility] [address] [place] [address] Apr, [facility] [address] [place] [address] 2399 Apr, [facility] [id number] [place] [id number] Mar, [facility] [address] [place] [address] 4[address] Mar, [facility] [id number] [place] [id number] Mar, [facility] [address] [place] [address] 14 Mar, 2017 Intractable chronic migraine without aura and without status migrainosus G43.719 [facility] [address] [place] [id number] Mar, 2017 Encounter for examination for admission to snf Z02.2 ; History of traumatic brain injury Z87.820 ; Recurrent major depressive disorder, in partial remission F33.41 ; Anxiety F41.9 ; Obsessive-compulsive disorder, unspecified type F42.9 ; Essential hypertension I10 and Type 2 diabetes mellitus with unspecified complications E11.8 [facility] [id number] [id number] Feb, [place] [address] [place] [address] Feb, Obsessive-compulsive disorder, unspecified type F42.9 ; Anxiety F41.9 and Recurrent major depressive disorder, in partial remission F33.41 [place] [address] [place] [address] 27 Jan, 2017 Traumatic brain injury, without LOC, initial encounter S06.9X0A ; Intractable chronic migraine without aura and without status migrainosus G43.719 ; Anxiety F41.9 and Recurrent major depressive disorder, in partial remission F33.41 [place] [address] [place] [address]- 95[address] 20 Jan, 2017 Intractable chronic migraine without aura and without status migrainosus G43.719 [place] [address] [place] [address]- [address] 19 Jan, 2017 History of traumatic brain injury Z87.820 ; Anxiety F41.9 and Recurrent major depressive disorder, in partial remission F33.41 [place] [address] [place] [address] 13 Jan, 2017 Formerly [facility], [facility] and [address] [id number] 07 Jan, 2017 History of traumatic brain injury Z87.820 and Obsessive-compulsive disorder, unspecified type F42.9 [place] [id number] [place] [address]- 2014 06 Jan, 2017 Traumatic brain injury, without LOC, initial encounter S06.9X0A ; Intractable chronic migraine without aura and without status migrainosus G43.719 ; Anxiety F41.9 and Recurrent major depressive disorder, in partial remission F33.41 [place] [id number] [address] 05 Jan, 2017 History of traumatic brain injury Z87.820 ; Obsessive- compulsive disorder, unspecified type F42.9 ; Anxiety F41.9 and Recurrent major depressive disorder, in partial remission F33.41 [facility] [id number] [id number] 31 Dec, 2016 [facility] [id number] [address] Dec, Intractable chronic migraine without aura and without status migrainosus G43.719 [facility] [address] [place] [id number] Dec, Type 2 diabetes mellitus with unspecified complications E11.8 and Essential hypertension I10 [facility] [address] [place] [address]34- 2521 18 Dec, 2016 Traumatic brain injury, without LOC, initial encounter S06.9X0A [facility] [address] [place] [address] 39630- 1026 16 Dec, 2016 Traumatic brain injury, without LOC, initial encounter S06.9X0A ; Intractable chronic migraine without aura and without status migrainosus G43.719 ; Anxiety F41.9 and Recurrent major depressive disorder, in partial remission F33.41 [facility] [address] [place] [address]18- [address]67 15 Dec, 2016 [facility] [address] [place] [address]00- 5680 11 Dec, 2016 History of traumatic brain injury Z87.820 ; Obsessive- compulsive disorder, unspecified type F42.9 ; Anxiety F41.9 and Recurrent major depressive disorder, in partial remission F33.41 [facility] [address] [address] 09 Dec, 2016 Traumatic brain injury, without LOC, initial encounter S06.9X0A [facility] [address] [place] [address] 72563- 2484 03 Dec, 2016 Anxiety F41.9 and Recurrent major depressive disorder, in partial remission F33.41 [facility] [address] [place] [address] 11803- 7586 Dec, Traumatic brain injury, without LOC, initial encounter S06.9X0A ; Intractable chronic migraine without aura and without status migrainosus G43.719 ; Anxiety F41.9 and Recurrent major depressive disorder, in partial remission F33.41 [facility] [id number] [address] Dec, [facility] [id number] [id number] Nov, Intractable chronic migraine without aura and without status migrainosus G43.719 [facility] [address] [place] [id number] Nov, Obsessive-compulsive disorder, unspecified type F42.9 ; Anxiety F41.9 and Intractable chronic migraine without aura and without status migrainosus G43.719 [facility] [id number] [address] Nov, Traumatic brain injury, without LOC, initial encounter S06.9X0A ; Intractable chronic migraine without aura and without status migrainosus G43.719 ; Anxiety F41.9 and Recurrent major depressive disorder, in partial remission F33.41 [facility] [address] [id number] [id number] Nov, [facility] [id number] [address] Nov, Anxiety F41.9 and Recurrent major depressive disorder, in partial remission F33.41 [facility] [id number] [address] Nov, [facility] [address] [id number] [place] [id number] Nov, [facility] [id number] [address] Oct, [facility] [id number] [address] 79[address] Oct, Anxiety F41.9 and Recurrent major depressive disorder, in partial remission F33.41 [facility] [address] [address] Oct, [facility] [id number] [place] [address]446- 1005 September, Anxiety F41.9 and Recurrent major depressive disorder, in partial remission F33.41 [facility] [id number] [place] [address] 77789- 2054 September, Traumatic brain injury, without LOC, initial encounter S06.9X0A ; Intractable chronic migraine without aura and without status migrainosus G43.719 ; Anxiety F41.9 and Recurrent major depressive disorder, in partial remission F33.41 [facility] [address] [place] [address] 24697- 9826 September, [place] [id number] [place] [address] 47581- 0408 September, Anxiety F41.9 [facility] [address] [place] [address] 22714- 5329 September, [facility] [id number] [place] [address] [id number] September, Type 2 diabetes mellitus with unspecified complications E11.8 [facility] [id number] [address] September, Type 2 diabetes mellitus with unspecified complications E11.8 [facility], [facility] [address] [place] [id number] September, Essential hypertension I10 and History of traumatic brain injury Z87.820 [facility] [address] [place] [address] 50440- 9042 Aug, Former[facility], [facility] [address] [place] [id number] Aug, Type 2 diabetes mellitus with unspecified complications E11.8 and Benign prostatic hyperplasia with lower urinary tract symptoms, unspecified morphology N40.1 [facility] [id number] [id number] Aug, [facility] [address] [address] Aug, [facility] [address] [address] Jul, Traumatic brain injury, without LOC, initial encounter S06.9X0A ; Intractable chronic migraine without aura and without status migrainosus G43.719 ; Anxiety F41.9 and Recurrent major depressive disorder, in partial remission F33.41 [facility] [address] [address] 0[address] Jul, [facility] [id number] [place] [address] 15652- 5351 Jul, [facility] [id number] [place] [address] [id number] Jun, [facility] [address] [place] [address] 25444- 5711 Jun, [facility] [address] [address] 1409 Jun, [facility], [facility] [address] [place] [id number] Jun, Encounter to establish care Z76.89 [facility] [address] [address] Jun, [facility] [address] [address] Jun, [facility] [address] [address] Jun, [facility] [address] [address] Jun, [facility] [place] [address] 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 [address] [id number] [place] [id number] May, Dental examination Z01.20 [facility] [place] [address] [id number] [place] [id number] Dec, Dental examination Z01.20 [facility] [place] [address] [id number] [place] [id number] September, Dental examination Z01.20 [facility] [place] [address] [id number] [place] [id number] Dec, Dental examination V72.2 [facility] [address] [id number] Aug, [facility] [address] [facility] [id number] [place] [address] Aug, [facility] [address] [address]- 3[address] Apr, [facility] [address] [address]- 4499 Nov, [facility] [address] [address]- 6604 Nov, [facility] [id number] [address]- 3660 Nov, [facility] [id number] [address]- 4778 Nov, [facility] [id number] [address] 1988 Oct, [facility] [id number] [address] May, [facility] [id number] May, IMMUNIZATIONS No Known Immunizations SOCIAL HISTORY Never Assessed REASON FOR VISIT f/u Sammie pt was hospitalized PLAN OF CARE Activity Details Follow Up 2 Months Reason: VITAL SIGNS Height 72.0 in 2017-05-19 Weight 206.1 lbs 2017-05-19 Heart Rate 80 bpm 2017-05-19 Respiratory Rate 20 2017-05-19 BMI 27.95 kg/m2 2017-05-19 Blood pressure systolic 138 mmHg 2017-05-19 Blood pressure diastolic 84 mmHg 2017-05-19 MEDICATIONS Medication Instructions Dosage Frequency Start Date End Date Duration Status Morphine Sulfate ER 15 mg Orally Once a day at bedtime 1 tablet Apr, 28 days Active Fluvoxamine Maleate 25 MG Orally Twice a day 1 tablet (give with 100mg tablet) 12h 30 day(s) Active Vitamin D 2000 UNIT Orally Once a day 1 tablet 24h Active Trazodone HCl 150 MG Orally Once a day 1 tablet at bedtime 24h 30 days Active Flomax 0.4 MG Orally Once a day 2 capsules 24h Active Allopurinol 300 MG Orally Once a day 1 tablet 24h Active Latanoprost 0.005 % Ophthalmic Once a day 1 drop into affected eye in the evening 24h Not-Taking Saline Nasal [place] 0.65 % Nasally every 2 hrs 2 sprays in each nostril as needed Active MiraLax 17 gm/dose Orally every 12 hrs as needed 17 grams mixed in 8 oz of water or juice Active Exelon 4.6 MG/24HR Transdermal Once a day 1 patch to skin 24h Active Latuda 60 mg Orally Once a day 1 tablet with food 24h 30 days Active Clonazepam 1 MG Orally 3 times a day 1 tablet 8h 28 days Active Verapamil HCl ER 180 MG Orally twice a day 1 tablet 12h Active Systane 0.4-0.3 % Ophthalmic at bedtime 1 drop into both eyes Not-Taking Lactulose 20 GM/30ML Orally twice a day 30 ml 12h Active Zyprexa 2.5 MG Orally twice a day 1 tablet 12h Active Effexor XR 75 MG Orally Once a day 1 capsule with food 24h 30 days Active Melatonin 3 MG Orally Once a day 3 tablets at bedtime 24h Active Timolol Maleate 0.5 % Ophthalmic twice a day 1 drop into danielle eyes 12h Active Depakote Sprinkles 125 MG Orally 3 times a day 4 capsules 8h 30 days Active Nuedexta 20-10 MG Orally every 12 hrs 1 capsule 12h 30 day(s) Active Fluvoxamine Maleate 100 mg Orally Twice a day 1 tablet 12h 30 day(s) Active Urecholine 25 MG Orally 3 times a day 1 tablet 8h Active Lotrisone 1-0.05 % Externally Twice a day 1 application to affected area 12h Active Topamax 25 MG Orally Twice a day 1 tablet 12h 30 day(s) Active Zyprexa Zydis 5 mg Orally QHS 1 tablet on the tongue and allow to dissolve 30 day(s) Active RESULTS No Results PROCEDURES Procedure Date Ordered Result Body Site [facility] VISIT ESTABLISHED PATIENT May 19, 2017 INSTRUCTIONS MEDICATIONS ADMINISTERED No Known Medications MEDICAL (GENERAL) HISTORY Type Description Date Medical History History of traumatic brain injury Subdural hematoma from falling out of bed 2012 Medical History Type 2 diabetes mellitus with unspecified complications 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
--- OUTSIDE RECORDS SUMMARY | 2018-07-02 12:01 | XMS REPORT ---
Author Author NICK FONSECA Organization [facility] [place] Address [address] [place] [address] Care Team Providers Care Senior Compensation Analyst Name Role Phone NICK FONSECA Unavailable PROBLEMS Type Condition ICD9-CM Code AED73-KG Code Onset Dates Condition Status SNOMED Code Problem Essential hypertension I10 Active 03909320 Problem nursing home current use of insulin Z79.4 Active 450291497 Problem Anxiety F41.9 Active 60728648 Problem Benign prostatic hyperplasia with lower urinary tract symptoms, unspecified morphology N40.1 Active 358210835 Problem Persistent migraine aura without cerebral infarction and without status migrainosus, not intractable G43.509 Active 666367886 Problem Intractable chronic migraine without aura and without status migrainosus G43.719 Active 408319215 Problem Type 2 diabetes mellitus with unspecified complications E11.8 Active 92933239 Problem 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 Active 85301244 Problem Chronic pain due to trauma G89.21 Active 407787134 Problem Recurrent major depressive disorder, in partial remission F33.41 Active 71294072 Problem Traumatic brain injury, without LOC, initial encounter S06.9X0A Active 161611825 Problem Rad (reactive airway disease), mild intermittent, uncomplicated J45.20 Active 244840008959 Problem Obsessive-compulsive disorder, unspecified type F42.9 Active 699579399 Problem History of traumatic brain injury Z87.820 Active 84287728926771 Problem Hyperlipidemia, unspecified hyperlipidemia type E78.5 Active 56680062 Problem Anemia, unspecified type D64.9 Active 541519976 Problem History of gout Z87.39 Active 835956568 Problem Glaucoma, unspecified glaucoma, unspecified laterality H40.9 Active 21951435 Problem Herpes B00.9 Active 30789395 Problem Weak urinary stream R39.12 Active 43162445 Problem Gastroesophageal reflux disease without esophagitis K21.9 Active 787435073 ALLERGIES No Information ENCOUNTERS Encounter Location Date Diagnosis [place] [address] [address] Dec, [place] [address] [place] [id number] [place] [address] Oct, [facility] [address] [place] [id number] Oct, Excessive anger R45.4 and Obsessive-compulsive disorder, unspecified type F42.9 [place] [address] [id number] [place] [address] 66653- 4660 Oct, Anxiety F41.9 ; Traumatic brain injury, without LOC, initial encounter S06.9X0A ; Intractable chronic migraine without aura and without status migrainosus G43.719 and Recurrent major depressive disorder, in partial remission F33.41 [place] [address] [place] [address] 89453- 8898 12 Oct, 2017 [place] [address] [address] [id number] [place] [address] 23939- 7793 05 Oct, 2017 [place] [address] [place] [address] 63127- 8740 04 Oct, 2017 [place] [address] [place] [address] 53011- 2596 23 Sep, 2017 Anxiety F41.9 ; Traumatic brain injury, without LOC, initial encounter S06.9X0A ; Intractable chronic migraine without aura and without status migrainosus G43.719 and Recurrent major depressive disorder, in partial remission F33.41 [facility] [address] [place] [id number] September, Weight gain R63.5 and Type 2 diabetes mellitus with unspecified complications E11.8 [place] [address] [place] [address] 06843- 3421 September, [place] [address] [address] Aug, [facility] [id number] [id number] Aug, [facility] [place] [id number] [address] Aug, [facility] [place] [address] [address] Jul, Intractable chronic migraine without aura and without status migrainosus G43.719 [facility] [place] [id number] [address] Jul, Intractable chronic migraine without aura and without status migrainosus G43.719 [facility] [address] [place] [id number] Jul, History of traumatic brain injury Z87.820 ; Recurrent major depressive disorder , in partial remission F33.41 and Type 2 diabetes mellitus with unspecified complications E11.8 [facility] [id number] [id number] Jul, [facility] [id number] [place] [id number] Jul, Intractable chronic migraine without aura and without status migrainosus G43.719 [facility] [place] [id number] [address] Jun, Anxiety F41.9 ; Traumatic brain injury, without LOC, initial encounter S06.9X0A ; Intractable chronic migraine without aura and without status migrainosus G43.719 and Recurrent major depressive disorder, in partial remission F33.41 [facility] [id number] [id number] Jun, [facility] [place] [id number] [address] Jun, [facility] [id number] [id number] Jun, Intractable chronic migraine without aura and without status migrainosus G43.719 [facility] [place] [id number] [address] May, [facility] [address] [place] [id number] May, Recurrent major depressive disorder, in partial remission F33.41 ; Traumatic brain injury, without LOC, initial encounter S06.9X0A and Anxiety F41.9 [facility] [place] [address] [address] May, [facility] [id number] [address] May, [facility] [place] [id number] [address] May, Intractable chronic migraine without aura and without status migrainosus G43.719 [facility] [place] [id number] [place] [address] [id number]- 4746 Apr, Anxiety F41.9 ; Traumatic brain injury, without LOC, initial encounter S06.9X0A ; Intractable chronic migraine without aura and without status migrainosus G43.719 and Recurrent major depressive disorder, in partial remission F33.41 [facility] [place] [id number] [address] Apr, [facility] [id number] [place] [id number] Apr, Intractable chronic migraine without aura and without status migrainosus G43.719 [facility] [place] [id number] [address] Apr, [facility] [id number] [address] Apr, [facility] [address] [id number] [id number] Mar, [facility] [id number] [address] Mar, [facility] [id number] [address] Mar, [facility] [address] [place] [address] 42084- 2716 Mar, Intractable chronic migraine without aura and without status migrainosus G43.719 [facility] [address] [place] [id number] Mar, Encounter for examination for admission to intermediate Z02.2 ; History of traumatic brain injury Z87.820 ; Recurrent major depressive disorder, in partial remission F33.41 ; Anxiety F41.9 ; Obsessive-compulsive disorder, unspecified type F42.9 ; Essential hypertension I10 and Type 2 diabetes mellitus with unspecified complications E11.8 [facility] [id number] [place] [id number] Feb, [place] [address] [place] [address] 23512- 7071 Feb, Obsessive-compulsive disorder, unspecified type F42.9 ; Anxiety F41.9 and Recurrent major depressive disorder, in partial remission F33.41 [place] [address] [place] [address] 83018- 6180 Jan, Traumatic brain injury, without LOC, initial encounter S06.9X0A ; Intractable chronic migraine without aura and without status migrainosus G43.719 ; Anxiety F41.9 and Recurrent major depressive disorder, in partial remission F33.41 [place] [address] [place] [address] 54903- 9725 Jan, Intractable chronic migraine without aura and without status migrainosus G43.719 [place] [address] [place] [address] 45449- 4909 Jan, History of traumatic brain injury Z87.820 ; Anxiety F41.9 and Recurrent major depressive disorder, in partial remission F33.41 [place] [address] [place] [address] 55857- 9063 13 Jan, 2017 [facility] [address] [place] [id number] 07 Jan, 2017 History of traumatic brain injury Z87.820 and Obsessive-compulsive disorder, unspecified type F42.9 [place] [address] [id number] [address] 9382 06 Jan, 2017 Traumatic brain injury, without LOC, initial encounter S06.9X0A ; Intractable chronic migraine without aura and without status migrainosus G43.719 ; Anxiety F41.9 and Recurrent major depressive disorder, in partial remission F33.41 [facility] [place] [address] [address]- [address] 05 Jan, 2017 History of traumatic brain injury Z87.820 ; Obsessive- compulsive disorder, unspecified type F42.9 ; Anxiety F41.9 and Recurrent major depressive disorder, in partial remission F33.41 [facility] [address] [id number] [place] [address] [id number] 31 Dec, 2016 [facility] [address] [id number] [place] [address] [id number] Dec, Intractable chronic migraine without aura and without status migrainosus G43.719 [facility] [address] [place] [id number] Dec, Type 2 diabetes mellitus with unspecified complications E11.8 and Essential hypertension I10 [facility] [place] [address] [place] [address] 29698- 3299 18 Dec, 2016 Traumatic brain injury, without LOC, initial encounter S06.9X0A [facility] [place] [id number] [address]39 16 Dec, 2016 Traumatic brain injury, without LOC, initial encounter S06.9X0A ; Intractable chronic migraine without aura and without status migrainosus G43.719 ; Anxiety F41.9 and Recurrent major depressive disorder, in partial remission F33.41 [facility] [place] [address] [address]- 6742 15 Dec, 2016 [facility] [place] [address] [place] [address] 51650- 5687 11 Dec, 2016 History of traumatic brain injury Z87.820 ; Obsessive- compulsive disorder, unspecified type F42.9 ; Anxiety F41.9 and Recurrent major depressive disorder, in partial remission F33.41 [facility] [place] [id number] [address]- 7068 Dec, Traumatic brain injury, without LOC, initial encounter S06.9X0A [facility] [place] [id number] [address]- 8356 Dec, Anxiety F41.9 and Recurrent major depressive disorder, in partial remission F33.41 [facility] [place] [id number] [place] [address] 36893- 3079 Dec, Traumatic brain injury, without LOC, initial encounter S06.9X0A ; Intractable chronic migraine without aura and without status migrainosus G43.719 ; Anxiety F41.9 and Recurrent major depressive disorder, in partial remission F33.41 [facility] [place] [address] [address] 9311 Dec, [facility] [id number] [place] [address] [id number] Nov, Intractable chronic migraine without aura and without status migrainosus G43.719 [facility] [address] [place] [id number] Nov, Obsessive-compulsive disorder, unspecified type F42.9 ; Anxiety F41.9 and Intractable chronic migraine without aura and without status migrainosus G43.719 [facility] [place] [id number] [address]- 9871 Nov, Traumatic brain injury, without LOC, initial encounter S06.9X0A ; Intractable chronic migraine without aura and without status migrainosus G43.719 ; Anxiety F41.9 and Recurrent major depressive disorder, in partial remission F33.41 [facility] [id number] [place] [address] [id number] Nov, [facility] [place] [id number] [address]- 1522 Nov, Anxiety F41.9 and Recurrent major depressive disorder, in partial remission F33.41 [facility] [place] [id number] [address]- 4646 Nov, [facility] [id number] [place] [address] [id number] Nov, [facility] [place] [address] [address]- 4998 Oct, [facility] [place] [address] [place] [address] 70729- 4236 Oct, Anxiety F41.9 and Recurrent major depressive disorder, in partial remission F33.41 [facility] [place] [address] [address]- 1298 Oct, [facility] [place] [address] [place] [address] 32532- 0540 September, Anxiety F41.9 and Recurrent major depressive disorder, in partial remission F33.41 [facility] [place] [address] [address]- 9171 September, Traumatic brain injury, without LOC, initial encounter S06.9X0A ; Intractable chronic migraine without aura and without status migrainosus G43.719 ; Anxiety F41.9 and Recurrent major depressive disorder, in partial remission F33.41 [facility] [place] [address] [address]- 0285 September, [facility] [place] [address] [address]- 1456 September, Anxiety F41.9 [facility] [place] [id number] [address]- 9561 September, [facility] [id number] [place] [address] [id number] September, Type 2 diabetes mellitus with unspecified complications E11.8 [facility] [id number] [id number] September, Type 2 diabetes mellitus with unspecified complications E11.8 [facility] [address] [place] [id number] September, Essential hypertension I10 and History of traumatic brain injury Z87.820 [facility] [place] [id number] [place] [address] 42327- 3674 Aug, [facility] [address] [place] [id number] Aug, Type 2 diabetes mellitus with unspecified complications E11.8 and Benign prostatic hyperplasia with lower urinary tract symptoms, unspecified morphology N40.1 [facility] [address] [id number] Aug, [facility] [place] [id number] [place] [address] 46307- 9521 Aug, [place] [id number] [place] [address] 62525- 1835 Jul, Traumatic brain injury, without LOC, initial encounter S06.9X0A ; Intractable chronic migraine without aura and without status migrainosus G43.719 ; Anxiety F41.9 and Recurrent major depressive disorder, in partial remission F33.41 [facility] [place] [id number] [place] [address] 47773- 5042 Jul, [place] [id number] [place] [address] 86936- 4738 Jul, [facility] [id number] [place] [address] [id number] Jun, [facility] [place] [id number] [place] [address] 40907- 8835 Jun, [facility] [place] [id number] [place] [address] 57090- 6692 Jun, [facility] [address] [place] [id number] Jun, Encounter to establish care Z76.89 [facility] [place] [id number] [place] [address] 03790- 4987 Jun, [facility] [place] [address] [place] [address]- 9016 Jun, [facility] [address] [id number] [address] 2546 Jun, [facility] [address] [id number] [address]- 2546 Jun, [facility] [place] [address] [id number] [place] [id number] May, Dental examination Z01.20 [facility] [place] [address] [id number] [place] [id number] Dec, Dental examination Z01.20 [facility] [place] [address] [id number] [place] [id number] September, Dental examination Z01.20 [facility] [place] [address] [id number] [place] [id number] Dec, Dental examination V72.2 [facility] [address] [id number] [address]- 9536 Aug, [facility] [address] [facility] [id number] [address]- 0307 Aug, [facility] [address] [facility] [id number] [address]- 9966 Apr, [facility] [address] [facility] [id number] [place] [address]- 4286 Nov, [facility] [address] [facility] [id number] [place] [address]- 7708 Nov, [facility] [address] [facility] [id number] [place] 6284 Nov, [facility] [address] [facility] [id number] [place] 7716 Nov, [facility] [address] [facility] [id number] [place] [address]- 6124 Oct, [facility] [address] [facility] [id number] [place] [address] May, [facility] [place] [address] [facility] [id number] [place] [address]- 4884 May, IMMUNIZATIONS No Known Immunizations SOCIAL HISTORY [...] diabetes mellitus with unspecified complications Medical History nursing home current use of insulin Medical History [...] Hospitalization History left ankle Hospitalization History [facility]
--- OUTSIDE RECORDS SUMMARY | 2018-07-02 12:01 | XMS REPORT ---
Author Author JOSEPH Saeed Organization [facility] Address [address] [place] [address] Care Team Providers Care Superintendent Automotive Name Role Phone JOSEPH Saeed Unavailable PROBLEMS Type Condition ICD9-CM Code VRL96-KR Code Onset Dates Condition Status SNOMED Code Problem Essential hypertension I10 Active 93099271 Problem FDC current use of insulin Z79.4 Active 702715379 Problem Anxiety F41.9 Active 01769585 Problem Benign prostatic hyperplasia with lower urinary tract symptoms, unspecified morphology N40.1 Active 185828738 Problem Persistent migraine aura without cerebral infarction and without status migrainosus, not intractable G43.509 Active 104331725 Problem Intractable chronic migraine without aura and without status migrainosus G43.719 Active 148253856 Problem Type 2 diabetes mellitus with unspecified complications E11.8 Active 53551974 Problem 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 Active 14300512 Problem Chronic pain due to trauma G89.21 Active 820765157 Problem Recurrent major depressive disorder, in partial remission F33.41 Active 67399727 Problem Traumatic brain injury, without LOC, initial encounter S06.9X0A Active 778574300 Problem Rad (reactive airway disease), mild intermittent, uncomplicated J45.20 Active 715900456866 Problem Obsessive-compulsive disorder, unspecified type F42.9 Active 907029222 Problem History of traumatic brain injury Z87.820 Active 00178859405114 Problem Hyperlipidemia, unspecified hyperlipidemia type E78.5 Active 21033498 Problem Anemia, unspecified type D64.9 Active 912074399 Problem History of gout Z87.39 Active 343028343 Problem Glaucoma, unspecified glaucoma, unspecified laterality H40.9 Active 84153265 Problem Herpes B00.9 Active 68543532 Problem Weak urinary stream R39.12 Active 99576206 Problem Gastroesophageal reflux disease without esophagitis K21.9 Active 513573143 ALLERGIES No Information ENCOUNTERS Encounter Location Date Diagnosis [facility] [address] [facility] [id number] [address] September, [facility] [id number], [place] [address] Aug, [facility] [address] [facility] [id number] [place] [id number] Aug, [facility] [address], [place] [address] Aug, [facility] [id number], [place] [address] Jul, Intractable chronic migraine without aura and without status migrainosus G43.719 [place] [id number], [place] [address] Jul, Intractable chronic migraine without aura and without status migrainosus G43.719 [facility] [address] [place] [id number] Jul, History of traumatic brain injury Z87.820 ; Recurrent major depressive disorder , in partial remission F33.41 and Type 2 diabetes mellitus with unspecified complications E11.8 [facility] [place] [id number], [place] [id number] Jul, [facility] [place] [id number] [place] [id number] Jul, Intractable chronic migraine without aura and without status migrainosus G43.719 [facility] [id number] [address] Jun, Anxiety F41.9 ; Traumatic brain injury, without LOC, initial encounter S06.9X0A ; Intractable chronic migraine without aura and without status migrainosus G43.719 and Recurrent major depressive disorder, in partial remission F33.41 [facility] [place] [address] [id number] [address] 13 Jun, 2017 [facility] [id number] [address] Jun, [facility] [id number][place] [address] Jun, Intractable chronic migraine without aura and without status migrainosus G43.719 [facility] [id number], [place] [address] May, [facility] [address] [place] [id number] May, Recurrent major depressive disorder, in partial remission F33.41 ; Traumatic brain injury, without LOC, initial encounter S06.9X0A and Anxiety F41.9 [facility] [id number], [place] [address] May, [facility] [id number], [place] [address] May, [facility] [id number], [place] [address] May, Intractable chronic migraine without aura and without status migrainosus G43.719 [facility] [id number] [address] Apr, Anxiety F41.9 ; Traumatic brain injury, without LOC, initial encounter S06.9X0A ; Intractable chronic migraine without aura and without status migrainosus G43.719 and Recurrent major depressive disorder, in partial remission F33.41 [facility] [id number], [place] [address] Apr, [facility] [address] [id number] [address] Apr, Intractable chronic migraine without aura and without status migrainosus G43.719 [facility] [id number], [place] [address] Apr, [facility] [id number] [address] Apr, [facility] [id number] [place] [id number] Mar, [facility] [id number] [address] Mar, [facility] [place] [id number], [place] [id number] Mar, [facility] [id number], [place] [address] Mar, Intractable chronic migraine without aura and without status migrainosus G43.719 [facility] [address] [place] [id number] 09 Mar, 2017 Encounter for examination for admission to longterm Z02.2 ; History of traumatic brain injury Z87.820 ; Recurrent major depressive disorder, in partial remission F33.41 ; Anxiety F41.9 ; Obsessive-compulsive disorder, unspecified type F42.9 ; Essential hypertension I10 and Type 2 diabetes mellitus with unspecified complications E11.8 [facility] [place] [id number], [place] [address] Feb, [facility] [facility] [id number], [place] [address] 10 Feb, 2017 Obsessive-compulsive disorder, unspecified type F42.9 ; Anxiety F41.9 and Recurrent major depressive disorder, in partial remission F33.41 [place] [facility] [id number], [place] [address] 27 Jan, 2017 Traumatic brain injury, without LOC, initial encounter S06.9X0A ; Intractable chronic migraine without aura and without status migrainosus G43.719 ; Anxiety F41.9 and Recurrent major depressive disorder, in partial remission F33.41 [facility] [id number], [place] [address] 20 Jan, 2017 Intractable chronic migraine without aura and without status migrainosus G43.719 [facility] [id number], [place] [address] 19 Jan, 2017 History of traumatic brain injury Z87.820 ; Anxiety F41.9 and Recurrent major depressive disorder, in partial remission F33.41 [facility] [id number], [place] [address] 13 Jan, 2017 [facility] [address] [place] [id number] 07 Jan, 2017 History of traumatic brain injury Z87.820 and Obsessive-compulsive disorder, unspecified type F42.9 [facility] [address] [place] [address] 06 Jan, 2017 Traumatic brain injury, without LOC, initial encounter S06.9X0A ; Intractable chronic migraine without aura and without status migrainosus G43.719 ; Anxiety F41.9 and Recurrent major depressive disorder, in partial remission F33.41 [facility] [address]00565100[place], [place] [address] 05 Jan, 2017 History of traumatic brain injury Z87.820 ; Obsessive- compulsive disorder, unspecified type F42.9 ; Anxiety F41.9 and Recurrent major depressive disorder, in partial remission F33.41 [facility] [place] [id number], [place] [id number] Dec, [facility] [place] [id number] [place] [id number] Dec, Intractable chronic migraine without aura and without status migrainosus G43.719 [facility] [address] [place] [address] Dec, Type 2 diabetes mellitus with unspecified complications E11.8 and Essential hypertension I10 [facility] [id number] [place] [address] Dec, Traumatic brain injury, without LOC, initial encounter S06.9X0A [facility] [address] [place] [address]- 8263 16 Dec, 2016 Traumatic brain injury, without LOC, initial encounter S06.9X0A ; Intractable chronic migraine without aura and without status migrainosus G43.719 ; Anxiety F41.9 and Recurrent major depressive disorder, in partial remission F33.41 [facility] [address], [place] [address] Dec, [facility] [address] [place] [address]47 Dec, History of traumatic brain injury Z87.820 ; Obsessive- compulsive disorder, unspecified type F42.9 ; Anxiety F41.9 and Recurrent major depressive disorder, in partial remission F33.41 [facility] [id number] [place] [address]- 48[address] 09 Dec, 2016 Traumatic brain injury, without LOC, initial encounter S06.9X0A [place] [address] [place] [address]- [address] 03 Dec, 2016 Anxiety F41.9 and Recurrent major depressive disorder, in partial remission F33.41 [place] [address], [place] [address] 02 Dec, 2016 Traumatic brain injury, without LOC, initial encounter S06.9X0A ; Intractable chronic migraine without aura and without status migrainosus G43.719 ; Anxiety F41.9 and Recurrent major depressive disorder, in partial remission F33.41 [place] [address], [place] [address] Dec, [facility] [place] [id number] [place] [id number] Nov, Intractable chronic migraine without aura and without status migrainosus G43.719 [facility] [address] [place] [address] Nov, Obsessive-compulsive disorder, unspecified type F42.9 ; Anxiety F41.9 and Intractable chronic migraine without aura and without status migrainosus G43.719 [place] [address] [place] [address]- 2922 Nov, Traumatic brain injury, without LOC, initial encounter S06.9X0A ; Intractable chronic migraine without aura and without status migrainosus G43.719 ; Anxiety F41.9 and Recurrent major depressive disorder, in partial remission F33.41 [facility] [place] [address] [id number] [id number] Nov, [facility] [address], [place] [address] Nov, Anxiety F41.9 and Recurrent major depressive disorder, in partial remission F33.41 [facility] [address], [place] [address] Nov, [facility] [place] [id number] [place] [address] [id number] Nov, [facility] [address] [place] [address]- 4778 Oct, [facility] [id number] [place] [address]- 4060 Oct, Anxiety F41.9 and Recurrent major depressive disorder, in partial remission F33.41 [facility] [address], [place] [address] Oct, [facility] [id number], [place] [address]16 September, Anxiety F41.9 and Recurrent major depressive disorder, in partial remission F33.41 [facility] [id number], [place] [address] September, Traumatic brain injury, without LOC, initial encounter S06.9X0A ; Intractable chronic migraine without aura and without status migrainosus G43.719 ; Anxiety F41.9 and Recurrent major depressive disorder, in partial remission F33.41 [facility] [address], [place] [address] September, [facility] [id number], [place] [address] September, Anxiety F41.9 [facility] [id number], [place] [address] September, [facility] [place] [id number], [place] [id number] September, Type 2 diabetes mellitus with unspecified complications E11.8 [facility] [place] [id number], [place] [address] September, Type 2 diabetes mellitus with unspecified complications E11.8 [facility] [address] [address] September, Essential hypertension I10 and History of traumatic brain injury Z87.820 [facility] [address], [place] [address] Aug, [facility] [address] [id number] Aug, Type 2 diabetes mellitus with unspecified complications E11.8 and Benign prostatic hyperplasia with lower urinary tract symptoms, unspecified morphology N40.1 [facility] [place] [id number], [place] [address] Aug, [facility] [address], [place] [address] Aug, [facility] [address] [place] [address]- 7136 Jul, Traumatic brain injury, without LOC, initial encounter S06.9X0A ; Intractable chronic migraine without aura and without status migrainosus G43.719 ; Anxiety F41.9 and Recurrent major depressive disorder, in partial remission F33.41 [facility] [address], [place] [address]- [address] Jul, [facility] [address], [place] [address]- [address] Jul, [facility] [place] [id number] [place] [id number] Jun, [facility] [address] [address] Jun, [facility] [address] [place] [address]- 7723 Jun, [facility] [address] [id number] Jun, Encounter to establish care Z76.89 [facility] [address] [facility] [id number], [place] [address] Jun, [facility] [address] [facility] [id number], [place] [address]- [address]66 Jun, [facility] [id number], [place] [address]- [address] Jun, [facility] [address], [place] [address]- [address]37 Jun, [facility] [address] [id number] [place] [id number] May, [facility] Z01.20 [facility] [place] [address] [id number] [place], [place] [id number] Dec, [facility] Z01.20 [facility] [place] [address] [id number] [place], [place] [id number] September, Dental examination Z01.20 [facility] [place] [address] [id number] [place], [place] [id number] Dec, Dental examination V72.2 [facility] [id number], [place] [address]- [address] Aug, [facility] [id number], [place] [address]- 2339 Aug, [facility] [id number] Apr, [facility] [address], [place] [address]- 1153 Nov, [facility] [id number], [place] [address]- 7901 Nov, [facility] [id number], [place] [address]- 6465 Nov, [facility] [address] [facility] [id number] [place] [address]- 9396 Nov, [facility] [address] [facility] [id number] [place] [address]- 2546 Oct, [facility] [address] [facility] [id number] [place] [address]- 2546 May, [facility] [address] [facility] [id number], [place] [address]- [address]46 May, IMMUNIZATIONS No Known Immunizations SOCIAL HISTORY Never Assessed REASON FOR VISIT f/u PLAN OF CARE Activity Details Follow Up 6 Weeks Reason:Depression, anxiety, anger VITAL SIGNS MEDICATIONS Unknown Medications RESULTS No Results PROCEDURES Procedure Date Ordered Result Body Site Psychotherapy, patient &/family, 30 minutes, established patient Feb 09, 2017 INSTRUCTIONS MEDICATIONS ADMINISTERED No Known Medications MEDICAL (GENERAL) HISTORY Type Description Date Medical History History of traumatic brain injury Subdural hematoma from falling out of bed 2012 Medical History Type 2 diabetes mellitus with unspecified complications 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
--- OUTSIDE RECORDS SUMMARY | 2018-07-02 12:02 | XMS REPORT ---
Author Author KILO ZENG [facility] Address [address] [place] [address] Care Team Providers Care Hide Inspector And Sorter Name Role Phone KILO ZENG Unavailable PROBLEMS Type Condition ICD9-CM Code FST46-CW Code Onset Dates Condition Status SNOMED Code Problem Essential hypertension I10 Active 98238723 Problem jail current use of insulin Z79.4 Active 753000577 Problem Anxiety F41.9 Active 12513820 Problem Benign prostatic hyperplasia with lower urinary tract symptoms, unspecified morphology N40.1 Active 574448307 Problem Persistent migraine aura without cerebral infarction and without status migrainosus, not intractable G43.509 Active 860444415 Problem Intractable chronic migraine without aura and without status migrainosus G43.719 Active 519131086 Problem Type 2 diabetes mellitus with unspecified complications E11.8 Active 11461585 Problem 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 Active 54854136 Problem Chronic pain due to trauma G89.21 Active 561042786 Problem Recurrent major depressive disorder, in partial remission F33.41 Active 58777826 Problem Traumatic brain injury, without LOC, initial encounter S06.9X0A Active 691133617 Problem Rad (reactive airway disease), mild intermittent, uncomplicated J45.20 Active 787270624002 Problem Obsessive-compulsive disorder, unspecified type F42.9 Active 290361494 Problem History of traumatic brain injury Z87.820 Active 26067801077490 Problem Hyperlipidemia, unspecified hyperlipidemia type E78.5 Active 67328330 Problem Anemia, unspecified type D64.9 Active 181471232 Problem History of gout Z87.39 Active 830312496 Problem Glaucoma, unspecified glaucoma, unspecified laterality H40.9 Active 95996513 Problem Herpes B00.9 Active 87932778 Problem Weak urinary stream R39.12 Active 03412023 Problem Gastroesophageal reflux disease without esophagitis K21.9 Active 020080429 ALLERGIES No Information SOCIAL HISTORY Never Assessed PLAN OF CARE VITAL SIGNS MEDICATIONS Unknown Medications RESULTS No Results PROCEDURES No Known procedures IMMUNIZATIONS No Known Immunizations MEDICAL (GENERAL) HISTORY Type Description Date Medical History History of traumatic brain injury Subdural hematoma from falling out of bed 2012 Medical History Type 2 diabetes mellitus with unspecified complications Medical History jail current use of insulin Medical 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
--- OUTSIDE RECORDS SUMMARY | 2018-07-02 12:02 | XMS REPORT ---
Author Author NICK FONSECA Organization [facility] Address [address] [place] [address] Care Team Providers Care Watermelon Harvesting Supervisor Name Role Phone NICK FONSECA Unavailable PROBLEMS Type Condition ICD9-CM Code JZE88-GB Code Onset Dates Condition Status SNOMED Code Problem Essential hypertension I10 Active 30831108 Problem FCI current use of insulin Z79.4 Active 042885234 Problem Anxiety F41.9 Active 73459689 Problem Benign prostatic hyperplasia with lower urinary tract symptoms, unspecified morphology N40.1 Active 221710368 Problem Persistent migraine aura without cerebral infarction and without status migrainosus, not intractable G43.509 Active 109038804 Problem Intractable chronic migraine without aura and without status migrainosus G43.719 Active 950760800 Problem Type 2 diabetes mellitus with unspecified complications E11.8 Active 66696700 Problem 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 Active 28141453 Problem Chronic pain due to trauma G89.21 Active 687550648 Problem Recurrent major depressive disorder, in partial remission F33.41 Active 69076377 Problem Traumatic brain injury, without LOC, initial encounter S06.9X0A Active 156646691 Problem Rad (reactive airway disease), mild intermittent, uncomplicated J45.20 Active 645565052663 Problem Obsessive-compulsive disorder, unspecified type F42.9 Active 430584279 Problem History of traumatic brain injury Z87.820 Active 06979810302683 Problem Hyperlipidemia, unspecified hyperlipidemia type E78.5 Active 10942522 Problem Anemia, unspecified type D64.9 Active 774834694 Problem History of gout Z87.39 Active 522052998 Problem Glaucoma, unspecified glaucoma, unspecified laterality H40.9 Active 07832107 Problem Herpes B00.9 Active 11357650 Problem Weak urinary stream R39.12 Active 14862523 Problem Gastroesophageal reflux disease without esophagitis K21.9 Active 673534291 ALLERGIES No Information ENCOUNTERS Encounter Location Date Diagnosis [facility] [id number] [address] Oct, [facility] [address], [place] [address] Oct, [facility] [address], [place] [address] Oct, [facility] [address] [place] [address] Oct, [facility] [address], [place] [address] September, Anxiety F41.9 ; Traumatic brain injury, without LOC, initial encounter S06.9X0A ; Intractable chronic migraine without aura and without status migrainosus G43.719 and Recurrent major depressive disorder, in partial remission F33.41 [facility] [address] [place] [id number] September, Weight gain R63.5 and Type 2 diabetes mellitus with unspecified complications E11.8 [facility] [address], [place] [address] September, [facility] [address], [place] [address] Aug, [facility] [id number] [place] [id number] Aug, [facility] [address], [place] [address] Aug, [facility] [id number], [place] [address] Jul, Intractable chronic migraine without aura and without status migrainosus G43.719 [facility] [id number], [place] [address] Jul, Intractable chronic migraine without aura and without status migrainosus G43.719 [facility] [address] [place] [id number] Jul, History of traumatic brain injury Z87.820 ; Recurrent major depressive disorder , in partial remission F33.41 and Type 2 diabetes mellitus with unspecified complications E11.8 [facility] [address] [id number] [id number] Jul, [facility] [address] [id number] [id number] Jul, Intractable chronic migraine without aura and without status migrainosus G43.719 [facility] [id number] [address] Jun, Anxiety F41.9 ; Traumatic brain injury, without LOC, initial encounter S06.9X0A ; Intractable chronic migraine without aura and without status migrainosus G43.719 and Recurrent major depressive disorder, in partial remission F33.41 [facility] [id number] [id number] Jun, [facility] [id number], [place] [address] Jun, [facility] [id number] [place] [id number] Jun, Intractable chronic migraine without aura and without status migrainosus G43.719 [facility] [id number] [address] May, [facility] [address] [place] [id number] May, Recurrent major depressive disorder, in partial remission F33.41 ; Traumatic brain injury, without LOC, initial encounter S06.9X0A and Anxiety F41.9 [facility] [id number], [place] [address] May, [facility] [id number] [place] [id number] May, [facility] [id number] [address] May, Intractable chronic migraine without aura and without status migrainosus G43.719 [facility] [id number], [place] [address] Apr, Anxiety F41.9 ; Traumatic brain injury, without LOC, initial encounter S06.9X0A ; Intractable chronic migraine without aura and without status migrainosus G43.719 and Recurrent major depressive disorder, in partial remission F33.41 [facility] [address], [place] [address] Apr, [facility] [id number] [place] [id number] Apr, Intractable chronic migraine without aura and without status migrainosus G43.719 [facility] [address] [place] [address] Apr, [facility] [id number] [place] [address] Apr, [facility] [id number] [place] [id number] Mar, [facility] [address] [place] [address] Mar, [facility] [id number] [place] [id number] Mar, [facility] [address], [place] [address] Mar, Intractable chronic migraine without aura and without status migrainosus G43.719 [facility] [address] [place] [id number] Mar, 2017 Encounter for examination for admission to halfway Z02.2 ; History of traumatic brain injury Z87.820 ; Recurrent major depressive disorder, in partial remission F33.41 ; Anxiety F41.9 ; Obsessive-compulsive disorder, unspecified type F42.9 ; Essential hypertension I10 and Type 2 diabetes mellitus with unspecified complications E11.8 [facility] [id number] [id number] Feb, [address], [place] [address] Feb, Obsessive-compulsive disorder, unspecified type F42.9 ; Anxiety F41.9 and Recurrent major depressive disorder, in partial remission F33.41 [address] [address] [address], [place] [address] 27 Jan, 2017 Traumatic brain injury, without LOC, initial encounter S06.9X0A ; Intractable chronic migraine without aura and without status migrainosus G43.719 ; Anxiety F41.9 and Recurrent major depressive disorder, in partial remission F33.41 [place] [address] [place] [address] 20 Jan, 2017 Intractable chronic migraine without aura and without status migrainosus G43.719 [place] [address] [place] [address]- [address] 19 Jan, 2017 History of traumatic brain injury Z87.820 ; Anxiety F41.9 and Recurrent major depressive disorder, in partial remission F33.41 [place] [address] [place] [address] 13 Jan, 2017 Formerly [facility] and [address] [id number] 07 Jan, 2017 History of traumatic brain injury Z87.820 and Obsessive-compulsive disorder, unspecified type F42.9 [place] [address] [place] [address] 06 Jan, 2017 Traumatic brain injury, without LOC, initial encounter S06.9X0A ; Intractable chronic migraine without aura and without status migrainosus G43.719 ; Anxiety F41.9 and Recurrent major depressive disorder, in partial remission F33.41 [place] [address] [place] [address] 05 Jan, 2017 History of traumatic brain injury Z87.820 ; Obsessive- compulsive disorder, unspecified type F42.9 ; Anxiety F41.9 and Recurrent major depressive disorder, in partial remission F33.41 [facility] [id number], [place] [address] Dec, [facility] [id number] [place] [id number] Dec, Intractable chronic migraine without aura and without status migrainosus G43.719 [facility] [address] [place] [id number] Dec, Type 2 diabetes mellitus with unspecified complications E11.8 and Essential hypertension I10 [facility] [address] [place] [address]- [address] 18 Dec, 2016 Traumatic brain injury, without LOC, initial encounter S06.9X0A [address] [id number] [place] [address]- 0[address] 16 Dec, 2016 Traumatic brain injury, without LOC, initial encounter S06.9X0A ; Intractable chronic migraine without aura and without status migrainosus G43.719 ; Anxiety F41.9 and Recurrent major depressive disorder, in partial remission F33.41 [facility] [address] [place] [address]- [address] 15 Dec, 2016 [facility] [id number] [place] [address] 73793- 2[address] 11 Dec, 2016 History of traumatic brain injury Z87.820 ; Obsessive- compulsive disorder, unspecified type F42.9 ; Anxiety F41.9 and Recurrent major depressive disorder, in partial remission F33.41 [facility] [address] [place] [address]87- 9148 09 Dec, 2016 Traumatic brain injury, without LOC, initial encounter S06.9X0A [facility] [address] [place] [address] 67291- 6[address] 03 Dec, 2016 Anxiety F41.9 and Recurrent major depressive disorder, in partial remission F33.41 [facility] [id number], [place] [address] 02 Dec, 2016 Traumatic brain injury, without LOC, initial encounter S06.9X0A ; Intractable chronic migraine without aura and without status migrainosus G43.719 ; Anxiety F41.9 and Recurrent major depressive disorder, in partial remission F33.41 [facility] [id number] [address] Dec, [facility] [address] [id number] [id number] Nov, Intractable chronic migraine without aura and without status migrainosus G43.719 [facility] [address] [place] [id number] Nov, Obsessive-compulsive disorder, unspecified type F42.9 ; Anxiety F41.9 and Intractable chronic migraine without aura and without status migrainosus G43.719 [facility] [id number], [place] [address] Nov, Traumatic brain injury, without LOC, initial encounter S06.9X0A ; Intractable chronic migraine without aura and without status migrainosus G43.719 ; Anxiety F41.9 and Recurrent major depressive disorder, in partial remission F33.41 [facility] [address] [id number] [id number] Nov, [facility] [id number], [place] [address] Nov, Anxiety F41.9 and Recurrent major depressive disorder, in partial remission F33.41 [facility] [id number], [place] [address] Nov, [facility] [address] [id number], [place] [id number] Nov, [facility] [id number], [place] [address] Oct, [facility] [address] [place] [address]69- [address]29 Oct, Anxiety F41.9 and Recurrent major depressive disorder, in partial remission F33.41 [facility] [address] [place] [address] 73260- 5776 Oct, [facility] [address], [place] [address] September, Anxiety F41.9 and Recurrent major depressive disorder, in partial remission F33.41 [facility] [address], [place] [address] September, Traumatic brain injury, without LOC, initial encounter S06.9X0A ; Intractable chronic migraine without aura and without status migrainosus G43.719 ; Anxiety F41.9 and Recurrent major depressive disorder, in partial remission F33.41 [facility] [address] [place] [address] 72935- 4952 September, [facility] [address] [place] [address] 41855- 8013 September, Anxiety F41.9 [facility] [address] [place] [address] 81327- 9535 September, [facility] [id number] [id number] September, Type 2 diabetes mellitus with unspecified complications E11.8 [facility] [id number] [place] [address] [id number] September, Type 2 diabetes mellitus with unspecified complications E11.8 [facility] [address] [place] [address] September, Essential hypertension I10 and History of traumatic brain injury Z87.820 [facility] [address], [place] [address] Aug, [facility] [address] [place] [id number] Aug, Type 2 diabetes mellitus with unspecified complications E11.8 and Benign prostatic hyperplasia with lower urinary tract symptoms, unspecified morphology N40.1 [facility] [id number] [id number] Aug, [facility] [address] [place] [address] 35957- 9569 Aug, [facility] [id number] [place] [address] 74459- 1281 Jul, Traumatic brain injury, without LOC, initial encounter S06.9X0A ; Intractable chronic migraine without aura and without status migrainosus G43.719 ; Anxiety F41.9 and Recurrent major depressive disorder, in partial remission F33.41 [facility] [id number] [place] [address] 04527- 1515 Jul, [facility] [id number] [place] [address] 54336- 4098 Jul, [facility] [address] [id number] Jun, [facility] [id number] [place] [address] 03666- 1835 Jun, [facility] [id number] [place] [address] 28981- 7992 Jun, [facility] [address] [place] [id number] Jun, Encounter to establish care Z76.89 [facility] [id number] [place] [address] 08693- 8651 Jun, [facility] [address] [place] [address] 11355- 7653 Jun, [facility] [id number] [place] [address] 97527- 5767 Jun, [facility] [address], [place] [address] Jun, [facility] [place] [address] [facility] [address] [id number] [place] [id number] May, Dental examination Z01.20 [facility] [place] [address] [id number] [place] [id number] Dec, Dental examination Z01.20 [facility] [place] [address] [id number] [place] [id number] September, Dental examination Z01.20 [facility] [place] [address] [id number] [facility] [place] [id number] Dec, Dental examination V72.2 [facility] [id number], [place] [address] Aug, [facility] [address] [address] Aug, [facility] [id number] [address] 269[address] Apr, [facility] [address] Nov, [facility] [id number], [place] [address]- 9[address] Nov, [facility] [address], [place] [address]- 4036 Nov, [facility] [id number], [place] [address]- 3709 Nov, [facility] [id number], [place] [address]- 9357 Oct, [facility] [id number], [place] [address]- 1526 May, [facility] [id number] [address] May, IMMUNIZATIONS No Known Immunizations SOCIAL HISTORY Never Assessed REASON FOR VISIT med list reconcilliation PLAN OF CARE VITAL SIGNS MEDICATIONS Medication Instructions Dosage Frequency Start Date End Date Duration Status Topamax 25 MG Orally Twice a day 1 tablet 12h 30 day(s) Active Latanoprost 0.005 % Ophthalmic Once a day 1 drop into affected eye in the evening 24h Active Flomax 0.4 MG Orally Once a day 2 capsules 24h Active Lotrisone 1-0.05 % Externally Twice a day 1 application to affected area 12h Active Clonazepam 1 MG Orally 3 times a day 1 tablet 8h 28 days Active Trazodone HCl 50 MG Orally Once a day 3 tablets at bedtime 24h Active Zyprexa 2.5 MG Orally twice a day 1 tablet 12h Active Morphine Sulfate ER 15 mg Orally Once a day at bedtime 1 tablet Apr, 28 days Active Verapamil HCl ER 180 MG Orally twice a day 1 tablet 12h Active Timolol Maleate 0.5 % Ophthalmic twice a day 1 drop into danielle eyes 12h Active Urecholine 25 MG Orally 3 times a day 1 tablet 8h Active Exelon 4.6 MG/24HR Transdermal Once a day 1 patch to skin 24h Active Lactulose 20 GM/30ML Orally twice a day 30 ml 12h Active MiraLax 17 gm/dose Orally every 12 hrs as needed 17 grams mixed in 8 oz of water or juice Active Effexor XR 75 MG Orally Once a day 1 capsule with food 24h 30 days Active Saline Nasal [place] 0.65 % Nasally every 2 hrs 2 sprays in each nostril as needed Active Latuda 60 mg Orally Once a day 1 tablet with food 24h 30 days Active Depakote Sprinkles 125 MG Orally 3 times a day 4 capsules 8h 30 days Active Vitamin D 2000 UNIT Orally Once a day 1 tablet 24h Active Melatonin 3 MG Orally Once a day 3 tablets at bedtime 24h Active Fluvoxamine Maleate 25 MG Orally Twice a day 2.5 tabs 12h Active Allopurinol 300 MG Orally Once a day 1 tablet 24h Active RESULTS No Results PROCEDURES No Known [...]
--- OUTSIDE RECORDS SUMMARY | 2018-07-02 12:02 | XMS REPORT ---
Author Author RENETTA SAUER [facility] eClinical[employer] Address Unknown Phone Unavailable Care Team Providers Care [employer] Superintendent Name Role Phone RENETTA SAUER CP Unavailable Allergies No Known Allergies Problems Problem Type Condition ICD-9 Code Onset Dates Condition Status Assessment Dental examination V72.2 Active Problem Dental examination V72.2 Active Medications No Known Medications Procedures Procedure Coding System Code Date Billing Notes on claim CPT-4 EC109 Jan 21, 2015 Periodontal maint procedures CPT-4 D4910 Jan 21, 2015 Results No Known Results Summary Purpose eClinicalWorks Submission
--- OUTSIDE RECORDS SUMMARY | 2018-07-02 12:02 | XMS REPORT ---
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 Active 647635108 Problem Anxiety F41.9 Active 04756283 Problem Benign prostatic hyperplasia with lower urinary tract symptoms, unspecified morphology N40.1 Active 003698616 Problem Persistent migraine aura without cerebral infarction and without status migrainosus, not intractable G43.509 Active 342900115 Problem Intractable chronic migraine without aura and without status migrainosus G43.719 Active 614173471 Problem Type 2 diabetes mellitus with unspecified complications E11.8 Active 52201682 Problem 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 Active 10740162 Problem Chronic pain due to trauma G89.21 Active 194437384 Problem Recurrent major depressive disorder, in partial remission F33.41 Active 98112407 Problem Traumatic brain injury, without LOC, initial encounter S06.9X0A Active 856561219 Problem Rad (reactive airway disease), mild intermittent, uncomplicated J45.20 Active 694567121498 Problem Obsessive-compulsive disorder, unspecified type F42.9 Active 309255102 Problem History of traumatic brain injury Z87.820 Active 12335395706275 Problem Hyperlipidemia, unspecified hyperlipidemia type E78.5 Active 06658098 Problem Anemia, unspecified type D64.9 Active 254610148 Problem History of gout Z87.39 Active 158738170 Problem Glaucoma, unspecified glaucoma, unspecified laterality H40.9 Active 10495453 Problem Herpes B00.9 Active 45901514 Problem Weak urinary stream R39.12 Active 09854654 Problem Gastroesophageal reflux disease without esophagitis K21.9 Active 335823631 ALLERGIES No Information SOCIAL HISTORY Never Assessed PLAN OF CARE VITAL SIGNS MEDICATIONS Medication Instructions Dosage Frequency Start Date End Date Duration Status Clonazepam 1 MG Orally 2 times a day for 7 days then decrease to 1 tablet daily x7 days then stop by oral route May, 14 days Active RESULTS No Results PROCEDURES No Known procedures IMMUNIZATIONS No Known Immunizations MEDICAL (GENERAL) HISTORY Type Description Date Medical History History of traumatic brain injury Subdural hematoma from falling out of bed 2012 Medical History Type 2 diabetes mellitus with unspecified complications Medical History terminal 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
--- OUTSIDE RECORDS SUMMARY | 2018-07-02 12:02 | XMS REPORT ---
Author Author GARY DERRELL Organization [facility] Address [address] [place] [address] Care Team Providers Care Cytopathology Technologist Name Role Phone DERRELL VEGA Unavailable PROBLEMS Type Condition ICD9-CM Code CPR27-LF Code Onset Dates Condition Status SNOMED Code Problem Essential hypertension I10 Active 59631452 Problem penitentiary current use of insulin Z79.4 Active 795687817 Problem Anxiety F41.9 Active 19236416 Problem Benign prostatic hyperplasia with lower urinary tract symptoms, unspecified morphology N40.1 Active 038715312 Problem Persistent migraine aura without cerebral infarction and without status migrainosus, not intractable G43.509 Active 473223664 Problem Intractable chronic migraine without aura and without status migrainosus G43.719 Active 828610219 Problem Type 2 diabetes mellitus with unspecified complications E11.8 Active 93933704 Problem 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 Active 07038592 Problem Chronic pain due to trauma G89.21 Active 311772754 Problem Recurrent major depressive disorder, in partial remission F33.41 Active 65087471 Problem Traumatic brain injury, without LOC, initial encounter S06.9X0A Active 512650018 Problem Rad (reactive airway disease), mild intermittent, uncomplicated J45.20 Active 982930445241 Problem Obsessive-compulsive disorder, unspecified type F42.9 Active 325039849 Problem History of traumatic brain injury Z87.820 Active 51264680333251 Problem Hyperlipidemia, unspecified hyperlipidemia type E78.5 Active 08595972 Problem Anemia, unspecified type D64.9 Active 141005605 Problem History of gout Z87.39 Active 821663471 Problem Glaucoma, unspecified glaucoma, unspecified laterality H40.9 Active 42149135 Problem Herpes B00.9 Active 54846062 Problem Weak urinary stream R39.12 Active 92851308 Problem Gastroesophageal reflux disease without esophagitis K21.9 Active 499154271 ALLERGIES Unknown Allergies SOCIAL HISTORY No smoking Hx information available PLAN OF CARE VITAL SIGNS MEDICATIONS Unknown Medications RESULTS No Results PROCEDURES No Known procedures IMMUNIZATIONS No Known Immunizations
--- OUTSIDE RECORDS SUMMARY | 2018-07-02 12:02 | XMS REPORT ---
Author Author NICK FONSECA Organization [facility] Address [address] [place] [address] Care Team Providers Care Aging Department Supervisor Name Role Phone NICK FONSECA Unavailable PROBLEMS Type Condition ICD9-CM Code FFG34-LF Code Onset Dates Condition Status SNOMED Code Problem Essential hypertension I10 Active 70605872 Problem terminal supervisor current use of insulin Z79.4 Active 509812434 Problem Anxiety F41.9 Active 95664523 Problem Benign prostatic hyperplasia with lower urinary tract symptoms, unspecified morphology N40.1 Active 629882358 Problem Persistent migraine aura without cerebral infarction and without status migrainosus, not intractable G43.509 Active 061468265 Problem Intractable chronic migraine without aura and without status migrainosus G43.719 Active 931473154 Problem Type 2 diabetes mellitus with unspecified complications E11.8 Active 90994688 Problem 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 Active 24033985 Problem Chronic pain due to trauma G89.21 Active 390943709 Problem Recurrent major depressive disorder, in partial remission F33.41 Active 83575263 Problem Traumatic brain injury, without LOC, initial encounter S06.9X0A Active 567947162 Problem Rad (reactive airway disease), mild intermittent, uncomplicated J45.20 Active 385378672070 Problem Obsessive-compulsive disorder, unspecified type F42.9 Active 305582435 Problem History of traumatic brain injury Z87.820 Active 31308579603477 Problem Hyperlipidemia, unspecified hyperlipidemia type E78.5 Active 56913817 Problem Anemia, unspecified type D64.9 Active 178927722 Problem History of gout Z87.39 Active 616443233 Problem Glaucoma, unspecified glaucoma, unspecified laterality H40.9 Active 87691341 Problem Herpes B00.9 Active 22170037 Problem Weak urinary stream R39.12 Active 63448954 Problem Gastroesophageal reflux disease without esophagitis K21.9 Active 421440842 ALLERGIES No Information SOCIAL HISTORY Never Assessed PLAN OF CARE VITAL SIGNS MEDICATIONS Unknown Medications RESULTS No Results PROCEDURES No Known procedures IMMUNIZATIONS No Known Immunizations MEDICAL (GENERAL) HISTORY Type Description Date Medical History History of traumatic brain injury Subdural hematoma from falling out of bed 2012 Medical History Type 2 diabetes mellitus with unspecified complications Medical History terminal supervisor current use of insulin Medical 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
--- OUTSIDE RECORDS SUMMARY | 2018-07-02 12:02 | XMS REPORT ---
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 cerebral infarction and without status migrainosus, not intractable G43.509 Active 089671611 Problem Intractable chronic migraine without aura and without status migrainosus G43.719 Active 055497918 Problem Type 2 diabetes mellitus with unspecified complications E11.8 Active 20873492 Problem 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 Active 70125806 Problem Chronic pain due to trauma G89.21 Active 891373171 Problem Recurrent major depressive disorder, in partial remission F33.41 Active 02840655 Problem Traumatic brain injury, without LOC, initial encounter S06.9X0A Active 009538016 Problem Rad (reactive airway disease), mild intermittent, uncomplicated J45.20 Active 413918717481 Problem Obsessive-compulsive disorder, unspecified type F42.9 Active 755900015 Problem History of traumatic brain injury Z87.820 Active 10747244148236 Problem Hyperlipidemia, unspecified hyperlipidemia type E78.5 Active 82034993 Problem Anemia, unspecified type D64.9 Active 071920947 Problem History of gout Z87.39 Active 866038379 Problem Glaucoma, unspecified glaucoma, unspecified laterality H40.9 Active 91681589 Problem Herpes B00.9 Active 76949413 Problem Weak urinary stream R39.12 Active 25614209 Problem Gastroesophageal reflux disease without esophagitis K21.9 Active 593125104 ALLERGIES No Information ENCOUNTERS Encounter Location Date Diagnosis [facility] [id number], [place] [address] Oct, [facility] [address], [place] [address] Oct, [facility] [address], [place] [address] Oct, [facility] [address], [place] [address] September, Anxiety F41.9 ; Traumatic brain injury, without LOC, initial encounter S06.9X0A ; Intractable chronic migraine without aura and without status migrainosus G43.719 and Recurrent major depressive disorder, in partial remission F33.41 [facility] [address] [place] [id number] September, Weight gain R63.5 and Type 2 diabetes mellitus with unspecified complications E11.8 [facility] [address], [place] [address] September, [facility] [address], [place] [address] Aug, [facility] [id number] [id number] Aug, [facility] [id number], [place] [address] Aug, [facility] [id number], [place] [address] Jul, Intractable chronic migraine without aura and without status migrainosus G43.719 [facility] [id number], [place] [address] Jul, Intractable chronic migraine without aura and without status migrainosus G43.719 [facility] [address] [place] [id number] Jul, History of traumatic brain injury Z87.820 ; Recurrent major depressive disorder , in partial remission F33.41 and Type 2 diabetes mellitus with unspecified complications E11.8 [facility] [address] [id number] [id number] Jul, [facility] [id number] [place] [id number] Jul, Intractable chronic migraine without aura and without status migrainosus G43.719 [facility] [id number], [place] [address] Jun, Anxiety F41.9 ; Traumatic brain injury, without LOC, initial encounter S06.9X0A ; Intractable chronic migraine without aura and without status migrainosus G43.719 and Recurrent major depressive disorder, in partial remission F33.41 [facility] [id number] [place] [id number] Jun, [facility] [address], [place] [address] Jun, [facility] [id number] [place] [id number] Jun, Intractable chronic migraine without aura and without status migrainosus G43.719 [facility] [address] [place] [id number] May, [facility] [address] [facility] [place] [id number] May, Recurrent major depressive disorder, in partial remission F33.41 ; Traumatic brain injury, without LOC, initial encounter S06.9X0A and Anxiety F41.9 [facility] [id number], [place] [address] May, [facility] [id number] [place] [id number] May, [facility] [address] [place] [address] May, Intractable chronic migraine without aura and without status migrainosus G43.719 [facility] [address], [place] [address] Apr, Anxiety F41.9 ; Traumatic brain injury, without LOC, initial encounter S06.9X0A ; Intractable chronic migraine without aura and without status migrainosus G43.719 and Recurrent major depressive disorder, in partial remission F33.41 [facility] [address] [address] Apr, [facility] [id number] [place] [id number] Apr, Intractable chronic migraine without aura and without status migrainosus G43.719 [facility] [id number], [place] [address] Apr, [facility] [address] [place] [address] Apr, [facility] [id number] [place] [address] [id number] Mar, [facility] [address] [place] [address] Mar, [facility] [id number] [place] [id number] Mar, [facility] [address] [place] [address] Mar, Intractable chronic migraine without aura and without status migrainosus G43.719 [facility] [address] [place] [id number] Mar, Encounter for examination for admission to [facility]pc Z02.2 ; History of traumatic brain injury Z87.820 ; Recurrent major depressive disorder, in partial remission F33.41 ; Anxiety F41.9 ; Obsessive-compulsive disorder, unspecified type F42.9 ; Essential hypertension I10 and Type 2 diabetes mellitus with unspecified complications E11.8 [facility] [id number] [id number] Feb, [facility] [address] [place] [address] Feb, Obsessive-compulsive disorder, unspecified type F42.9 ; Anxiety F41.9 and Recurrent major depressive disorder, in partial remission F33.41 [facility] [address], [place] [address] 27 Jan, 2017 Traumatic brain injury, without LOC, initial encounter S06.9X0A ; Intractable chronic migraine without aura and without status migrainosus G43.719 ; Anxiety F41.9 and Recurrent major depressive disorder, in partial remission F33.41 [facility] [address], [place] [address] 20 Jan, 2017 Intractable chronic migraine without aura and without status migrainosus G43.719 [facility] [address] [place] [address] 19 Jan, 2017 History of traumatic brain injury Z87.820 ; Anxiety F41.9 and Recurrent major depressive disorder, in partial remission F33.41 [place] [facility] [address] [place] [address] 13 Jan, 2017 [facility] [address] [place] [id number] 07 Jan, 2017 History of traumatic brain injury Z87.820 and Obsessive-compulsive disorder, unspecified type F42.9 [place] [facility] [address], [place] [address] 06 Jan, 2017 Traumatic brain injury, without LOC, initial encounter S06.9X0A ; Intractable chronic migraine without aura and without status migrainosus G43.719 ; Anxiety F41.9 and Recurrent major depressive disorder, in partial remission F33.41 [facility] [id number], [place] [address] 05 Jan, 2017 History of traumatic brain injury Z87.820 ; Obsessive- compulsive disorder, unspecified type F42.9 ; Anxiety F41.9 and Recurrent major depressive disorder, in partial remission F33.41 [facility] [id number] [id number] Dec, [place] [id number] [id number] 28 Dec, 2016 Intractable chronic migraine without aura and without status migrainosus G43.719 [facility] [address] [place] [id number] Dec, Type 2 diabetes mellitus with unspecified complications E11.8 and Essential hypertension I10 [place] [address], [place] [address] Dec, Traumatic brain injury, without LOC, initial encounter S06.9X0A [place] [address] [place] [address] 16 Dec, 2016 Traumatic brain injury, without LOC, initial encounter S06.9X0A ; Intractable chronic migraine without aura and without status migrainosus G43.719 ; Anxiety F41.9 and Recurrent major depressive disorder, in partial remission F33.41 [place] [address] [place] [address]- 95[address] 15 Dec, 2016 [place] [address] [place] [address]- [address] 11 Dec, 2016 History of traumatic brain injury Z87.820 ; Obsessive- compulsive disorder, unspecified type F42.9 ; Anxiety F41.9 and Recurrent major depressive disorder, in partial remission F33.41 [place] [address], [place] [address] 09 Dec, 2016 Traumatic brain injury, without LOC, initial encounter S06.9X0A [place] [address] [place] [address]- [address] 03 Dec, 2016 Anxiety F41.9 and Recurrent major depressive disorder, in partial remission F33.41 [place] [id number] [place] [address]- [address] 02 Dec, 2016 Traumatic brain injury, without LOC, initial encounter S06.9X0A ; Intractable chronic migraine without aura and without status migrainosus G43.719 ; Anxiety F41.9 and Recurrent major depressive disorder, in partial remission F33.41 [facility] [id number], [place] [address] Dec, [facility] [address] [id number] Nov, Intractable chronic migraine without aura and without status migrainosus G43.719 [facility] [address] [place] [id number] Nov, Obsessive-compulsive disorder, unspecified type F42.9 ; Anxiety F41.9 and Intractable chronic migraine without aura and without status migrainosus G43.719 [facility] [id number], [place] [address] Nov, Traumatic brain injury, without LOC, initial encounter S06.9X0A ; Intractable chronic migraine without aura and without status migrainosus G43.719 ; Anxiety F41.9 and Recurrent major depressive disorder, in partial remission F33.41 [facility] [id number] [id number] Nov, [facility] [id number], [place] [address] Nov, Anxiety F41.9 and Recurrent major depressive disorder, in partial remission F33.41 [facility] [id number], [place] [address] Nov, [facility] [address] [id number] [id number] Nov, [facility] [id number], [place] [address] Oct, [facility] [id number], [place] [address] Oct, Anxiety F41.9 and Recurrent major depressive disorder, in partial remission F33.41 [facility] [id number], [place] [address] Oct, [facility] [address], [place] [address] September, Anxiety F41.9 and Recurrent major depressive disorder, in partial remission F33.41 [facility] [address], [place] [address] September, Traumatic brain injury, without LOC, initial encounter S06.9X0A ; Intractable chronic migraine without aura and without status migrainosus G43.719 ; Anxiety F41.9 and Recurrent major depressive disorder, in partial remission F33.41 [facility] [address], [place] [address] September, [facility] [address] [place] [address]209- 0868 September, Anxiety F41.9 [facility] [address] [place] [address]- 1235 September, [facility] [id number] [place] [address] [id number] September, Type 2 diabetes mellitus with unspecified complications E11.8 [facility] [id number] [place] [address] [id number] September, Type 2 diabetes mellitus with unspecified complications E11.8 [facility] [address] [place] [id number] September, Essential hypertension I10 and History of traumatic brain injury Z87.820 [facility] [address], [place] [address] Aug, [facility] [address] [place] [id number] Aug, Type 2 diabetes mellitus with unspecified complications E11.8 and Benign prostatic hyperplasia with lower urinary tract symptoms, unspecified morphology N40.1 [facility] [id number] [id number] Aug, [facility] [address], [place] [address] Aug, [facility] [id number] [place] [address]1985- 9871 Jul, Traumatic brain injury, without LOC, initial encounter S06.9X0A ; Intractable chronic migraine without aura and without status migrainosus G43.719 ; Anxiety F41.9 and Recurrent major depressive disorder, in partial remission F33.41 [facility] [address], [place] [address] Jul, [facility] [id number] [place] [address] 24164- 3880 Jul, [facility] [id number] [place] [address] [id number] Jun, [facility] [id number] [place] [address] 01286- 6376 Jun, [facility] [id number] [place] [address] 09845- [address]65 Jun, [facility] [address] [id number] Jun, Encounter to establish care Z76.89 [facility] [id number] [place] [address] 95369- 9819 Jun, [facility] [id number] [place] [address] 26994- 1875 Jun, [facility] [address], [place] [address] 24[address] Jun, [facility] [address], [place] [address]- [address] 07 Jun, [facility] [place] [address] [id number] [place] [id number] May, [facility] Z01.20 [facility] [place] [address] [id number] [place] [id number] Dec, Dental examination Z01.20 [facility] [place] [address] [id number] [place] [id number] September, Dental examination Z01.20 [facility] [place] [address] [id number] [place] [id number] Dec, Dental examination V72.2 [facility] [id number], [place] [address] Aug, [facility] [id number], [place] [address]237 Aug, [facility] [id number], [place] [address]- [address]75 Apr, [facility] [address] [facility] [id number], [place] [address] Nov, [facility] [id number], [place] [address] 3633 Nov, [facility] [id number], [place] [address]- 4465 Nov, [facility] [id number], [place] [address] 8623 Nov, [facility] [address] [facility] [id number], [place] [address]- [address] Oct, [facility] [id number], [place] [address] 3826 May, [facility] [address] [facility] [id number], [place] [address] May, IMMUNIZATIONS No Known Immunizations SOCIAL HISTORY [...] diabetes mellitus with unspecified complications Medical History [facility] current use of insulin Medical 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
--- OUTSIDE RECORDS SUMMARY | 2018-07-02 12:03 | XMS REPORT ---
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 Active 652687588 Problem Anxiety F41.9 Active 52611920 Problem Benign prostatic hyperplasia with lower urinary tract symptoms, unspecified morphology N40.1 Active 054477974 Problem Persistent migraine aura without cerebral infarction and without status migrainosus, not intractable G43.509 Active 611970675 Problem Intractable chronic migraine without aura and without status migrainosus G43.719 Active 301486468 Problem Type 2 diabetes mellitus with unspecified complications E11.8 Active 56597527 Problem 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 Active 31462700 Problem Chronic pain due to trauma G89.21 Active 404769771 Problem Recurrent major depressive disorder, in partial remission F33.41 Active 59764390 Problem Traumatic brain injury, without LOC, initial encounter S06.9X0A Active 573234208 Problem Rad (reactive airway disease), mild intermittent, uncomplicated J45.20 Active 801460195421 Problem Obsessive-compulsive disorder, unspecified type F42.9 Active 223529098 Problem History of traumatic brain injury Z87.820 Active 89013478254914 Problem Hyperlipidemia, unspecified hyperlipidemia type E78.5 Active 05500970 Problem Anemia, unspecified type D64.9 Active 704415255 Problem History of gout Z87.39 Active 619319153 Problem Glaucoma, unspecified glaucoma, unspecified laterality H40.9 Active 95486768 Problem Herpes B00.9 Active 05304451 Problem Weak urinary stream R39.12 Active 39397995 Problem Gastroesophageal reflux disease without esophagitis K21.9 Active 739989624 ALLERGIES No Information ENCOUNTERS Encounter Location Date Diagnosis [facility], [place] [address] [facility] [id number][place] [address] September, [facility] [place] [address] [facility] [id number][place] [address] Aug, [facility] [address] [facility] [id number] [place] [id number] Aug, [facility] [place] [id number], [place] [address] Aug, [facility] [place] [address] [id number], [place] [address] Jul, Intractable chronic migraine without aura and without status migrainosus G43.719 [facility] [place] [address] [id number], [place] [address] Jul, Intractable chronic migraine without aura and without status migrainosus G43.719 [facility] [address] [place] [address] Jul, History of traumatic brain injury Z87.820 ; Recurrent major depressive disorder , in partial remission F33.41 and Type 2 diabetes mellitus with unspecified complications E11.8 [facility] [address] [id number][place] [id number] Jul, [facility] [id number] [id number] Jul, Intractable chronic migraine without aura and without status migrainosus G43.719 [facility] [place] [address] [facility] [id number], [place] [address] Jun, Anxiety F41.9 ; Traumatic brain injury, without LOC, initial encounter S06.9X0A ; Intractable chronic migraine without aura and without status migrainosus G43.719 and Recurrent major depressive disorder, in partial remission F33.41 [facility] [address] [id number][place] [id number] 13 Jun, 2017 [facility] [place] [address] [facility] [id number], [place] [address] Jun, [facility] [id number] [address] Jun, Intractable chronic migraine without aura and without status migrainosus G43.719 [facility] [address] [id number] [address] May, [facility] [address] [facility] [place] [id number] May, Recurrent major depressive disorder, in partial remission F33.41 ; Traumatic brain injury, without LOC, initial encounter S06.9X0A and Anxiety F41.9 [facility] [address], [place] [address] May, [facility] [address] [id number] [id number] May, [facility] [address]100[place], [place] [address] May, Intractable chronic migraine without aura and without status migrainosus G43.719 [facility] [id number] [address] Apr, Anxiety F41.9 ; Traumatic brain injury, without LOC, initial encounter S06.9X0A ; Intractable chronic migraine without aura and without status migrainosus G43.719 and Recurrent major depressive disorder, in partial remission F33.41 [facility] [place] [address]65100[place], [place] [address] Apr, [facility] [address] [id number] [address] Apr, Intractable chronic migraine without aura and without status migrainosus G43.719 [facility] [place] [address], [place] [address] Apr, [facility] [place] [address], [place] [address] Apr, [facility] [id number], [place] [id number] Mar, [facility] [place] [address] [id number], [place] [address] Mar, [facility] [address] [id number] [address] Mar, [facility] [place] [address]100[place], [place] [address] Mar, Intractable chronic migraine without aura and without status migrainosus G43.719 [facility] [address] [place] [address] Mar, Encounter for examination for admission to assisted Z02.2 ; History of traumatic brain injury Z87.820 ; Recurrent major depressive disorder, in partial remission F33.41 ; Anxiety F41.9 ; Obsessive-compulsive disorder, unspecified type F42.9 ; Essential hypertension I10 and Type 2 diabetes mellitus with unspecified complications E11.8 [facility] [id number], [place] [id number] Feb, [facility] [place] [id number] [place] [address] 10 Feb, 2017 Obsessive-compulsive disorder, unspecified type F42.9 ; Anxiety F41.9 and Recurrent major depressive disorder, in partial remission F33.41 [facility] [place] [address] [id number], [place] [address] 27 Jan, 2017 Traumatic brain injury, without LOC, initial encounter S06.9X0A ; Intractable chronic migraine without aura and without status migrainosus G43.719 ; Anxiety F41.9 and Recurrent major depressive disorder, in partial remission F33.41 [facility] [place] [id number], [place] [address] 20 Jan, 2017 Intractable chronic migraine without aura and without status migrainosus G43.719 [facility] [place] [id number], [place] [address] 19 Jan, 2017 History of traumatic brain injury Z87.820 ; Anxiety F41.9 and Recurrent major depressive disorder, in partial remission F33.41 [facility] [place] [address] [id number], [place] [address] 13 Jan, 2017 [facility] [address] [place] [id number] 07 Jan, 2017 History of traumatic brain injury Z87.820 and Obsessive-compulsive disorder, unspecified type F42.9 [facility] [place] [id number], [place] [address] 06 Jan, 2017 Traumatic brain injury, without LOC, initial encounter S06.9X0A ; Intractable chronic migraine without aura and without status migrainosus G43.719 ; Anxiety F41.9 and Recurrent major depressive disorder, in partial remission F33.41 [facility] [place] [address], [place] [address] 05 Jan, 2017 History of traumatic brain injury Z87.820 ; Obsessive- compulsive disorder, unspecified type F42.9 ; Anxiety F41.9 and Recurrent major depressive disorder, in partial remission F33.41 [facility] [id number], [place] [id number] Dec, [facility] [id number] [place] [id number] Dec, Intractable chronic migraine without aura and without status migrainosus G43.719 [facility] [address] [place] [address] Dec, Type 2 diabetes mellitus with unspecified complications E11.8 and Essential hypertension I10 [facility] [place] [address] [id number], [place] [address] Dec, Traumatic brain injury, without LOC, initial encounter S06.9X0A [facility] [place] [address]100[place], [place] [address] 16 Dec, 2016 Traumatic brain injury, without LOC, initial encounter S06.9X0A ; Intractable chronic migraine without aura and without status migrainosus G43.719 ; Anxiety F41.9 and Recurrent major depressive disorder, in partial remission F33.41 [facility] [place] [address], [place] [address] Dec, [facility] [place] [address] [place] [address] Dec, History of traumatic brain injury Z87.820 ; Obsessive- compulsive disorder, unspecified type F42.9 ; Anxiety F41.9 and Recurrent major depressive disorder, in partial remission F33.41 [facility] [place] [id number] [place] [address] 6[address] 09 Dec, 2016 Traumatic brain injury, without LOC, initial encounter S06.9X0A [facility] [place] [address] [place] [address]- [address] 03 Dec, 2016 Anxiety F41.9 and Recurrent major depressive disorder, in partial remission F33.41 [facility] [place] [address] [place] [address]- 8173 02 Dec, 2016 Traumatic brain injury, without LOC, initial encounter S06.9X0A ; Intractable chronic migraine without aura and without status migrainosus G43.719 ; Anxiety F41.9 and Recurrent major depressive disorder, in partial remission F33.41 [facility] [place] [address] [place] [address] 6[address] Dec, [facility] [id number] [place] [id number] Nov, Intractable chronic migraine without aura and without status migrainosus G43.719 [facility] [address] [address] Nov, Obsessive-compulsive disorder, unspecified type F42.9 ; Anxiety F41.9 and Intractable chronic migraine without aura and without status migrainosus G43.719 [facility] [place] [address] [place] [address]44 Nov, Traumatic brain injury, without LOC, initial encounter S06.9X0A ; Intractable chronic migraine without aura and without status migrainosus G43.719 ; Anxiety F41.9 and Recurrent major depressive disorder, in partial remission F33.41 [facility] [address] [id number] [address] Nov, [facility] [place] [address] [facility] [id number], [place] [address] Nov, Anxiety F41.9 and Recurrent major depressive disorder, in partial remission F33.41 [facility] [place] [id number], [place] [address] 9216 Nov, [facility] [address] [id number] [id number] Nov, [facility] [place] [id number], [place] [address] 98[address] Oct, [facility] [place] [id number], [place] [address] 3096 Oct, Anxiety F41.9 and Recurrent major depressive disorder, in partial remission F33.41 [facility] [place] [address], [place] [address] 64[address] Oct, [facility] [place] [address] [id number], [place] [address] 89[address] September, Anxiety F41.9 and Recurrent major depressive disorder, in partial remission F33.41 [facility] [place] [id number], [place] [address] September, Traumatic brain injury, without LOC, initial encounter S06.9X0A ; Intractable chronic migraine without aura and without status migrainosus G43.719 ; Anxiety F41.9 and Recurrent major depressive disorder, in partial remission F33.41 [facility] [place] [address] [facility] [id number], [place] [address] September, [facility] [place] [address] [id number], [place] [address]265 September, Anxiety F41.9 [facility] [place] [id number], [place] [address] 8667 September, [facility] [id number] [id number] September, Type 2 diabetes mellitus with unspecified complications E11.8 [facility] [address] [id number], [place] [address] September, Type 2 diabetes mellitus with unspecified complications E11.8 [facility] [address] [address] September, Essential hypertension I10 and History of traumatic brain injury Z87.820 [facility] [place] [address], [place] [address] Aug, [facility] [address] [id number] Aug, Type 2 diabetes mellitus with unspecified complications E11.8 and Benign prostatic hyperplasia with lower urinary tract symptoms, unspecified morphology N40.1 [facility] [address] [id number] [id number] Aug, [address], [place] [address] Aug, [address] [address] Jul, Traumatic brain injury, without LOC, initial encounter S06.9X0A ; Intractable chronic migraine without aura and without status migrainosus G43.719 ; Anxiety F41.9 and Recurrent major depressive disorder, in partial remission F33.41 [address], [place] [address]- 6226 Jul, [address], [place] [address] Jul, [facility] [id number] [place] [id number] Jun, [address], [place] [address]- 9146 Jun, [address], [place] [address]- 7676 Jun, [facility] [address] [id number] Jun, Encounter to establish care Z76.89 [facility] [place] [address] [facility] [id number], [place] [address] 3[address] Jun, [facility] [place] [id number], [place] [address] 2546 Jun, [facility] [place] [id number], [place] [address] 2546 Jun, [facility] [place] [id number], [place] [address]- 3226 Jun, [facility] [place] [address] [id number] [place] [id number] May, Dental examination Z01.20 [facility] [place] [address] [id number] [place] [id number] Dec, [facility] Z01.20 [facility] [place] [address] [id number] [place] [id number] September, Dental examination Z01.20 [facility] [place] [address] [id number] [place] [id number] Dec, Dental examination V72.2 [facility] [place] [address] [id number], [place] [address]- 8516 Aug, [facility] [place] [id number], [place] [address]- 3576 Aug, [facility] [place] [id number], [place] [address]- 6476 Apr, [facility] [place] [address] [id number], [place] [address]- 1366 Nov, [facility] [place] [id number], [place] [address]- 3176 Nov, [facility] [place] [address] [id number], [place] [address]- 2916 Nov, [facility] [place] [address] [facility] [id number] [place] [address]- 2[address] Nov, [facility] [place] [address] [facility] [id number], [place] [address]- 3736 Oct, [facility] [place] [address] [facility] [id number], [place] [address]- 3259 May, [facility] [place] [address] [facility] [id number], [place] [address]- 1286 May, IMMUNIZATIONS No Known Immunizations SOCIAL HISTORY [...] diabetes mellitus with unspecified complications Medical 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
--- OUTSIDE RECORDS SUMMARY | 2018-07-02 12:03 | XMS REPORT ---
Author Author NICK FONSECA Organization [facility] Address [address] [place] [address] Care Team Providers Care Aerobics Teacher Name Role Phone NICK FONSECA Unavailable PROBLEMS Type Condition ICD9-CM Code IRU32-TY Code Onset Dates Condition Status SNOMED Code Problem Essential hypertension I10 Active 34199176 Problem shelter current use of insulin Z79.4 Active 585348537 Problem Anxiety F41.9 Active 72040854 Problem Benign prostatic hyperplasia with lower urinary tract symptoms, unspecified morphology N40.1 Active 685011959 Problem Persistent migraine aura without cerebral infarction and without status migrainosus, not intractable G43.509 Active 027015327 Problem Intractable chronic migraine without aura and without status migrainosus G43.719 Active 195236757 Problem Type 2 diabetes mellitus with unspecified complications E11.8 Active 91810964 Problem 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 Active 87129597 Problem Chronic pain due to trauma G89.21 Active 300557131 Problem Recurrent major depressive disorder, in partial remission F33.41 Active 59221837 Problem Traumatic brain injury, without LOC, initial encounter S06.9X0A Active 521408729 Problem Rad (reactive airway disease), mild intermittent, uncomplicated J45.20 Active 493982383727 Problem Obsessive-compulsive disorder, unspecified type F42.9 Active 987050597 Problem History of traumatic brain injury Z87.820 Active 60290921598102 Problem Hyperlipidemia, unspecified hyperlipidemia type E78.5 Active 44618873 Problem Anemia, unspecified type D64.9 Active 505892369 Problem History of gout Z87.39 Active 672632435 Problem Glaucoma, unspecified glaucoma, unspecified laterality H40.9 Active 56807021 Problem Herpes B00.9 Active 73103157 Problem Weak urinary stream R39.12 Active 20946731 Problem Gastroesophageal reflux disease without esophagitis K21.9 Active 014811859 ALLERGIES No Information ENCOUNTERS Encounter Location Date Diagnosis [place] [address] [address] Dec, [place] [address] [place] [id number] [place] [address] Oct, [facility] [address] [place] [id number] Oct, Excessive anger R45.4 and Obsessive-compulsive disorder, unspecified type F42.9 [place] [address] [place] [id number] [place] [address] Oct, Anxiety F41.9 ; Traumatic brain injury, without LOC, initial encounter S06.9X0A ; Intractable chronic migraine without aura and without status migrainosus G43.719 and Recurrent major depressive disorder, in partial remission F33.41 [place] [id number] [place] [address] 95762- 6491 12 Oct, 2017 [place] [address] [place] [id number] [place] [address] 75504- 7317 05 Oct, 2017 [place] [id number] [place] [address] 61573- 1477 04 Oct, 2017 [place] [address] [place] [address] 05315- [address]90 23 Sep, 2017 Anxiety F41.9 ; Traumatic brain injury, without LOC, initial encounter S06.9X0A ; Intractable chronic migraine without aura and without status migrainosus G43.719 and Recurrent major depressive disorder, in partial remission F33.41 [facility] [address] [place] [id number] September, Weight gain R63.5 and Type 2 diabetes mellitus with unspecified complications E11.8 [place] [id number] [place] [address]33[address] 4456 September, [place] [address] [address] Aug, [facility] [id number] [id number] Aug, [facility] [id number], [place] [address] Aug, [facility] [address], [place] [address] Jul, Intractable chronic migraine without aura and without status migrainosus G43.719 [facility] [id number], [place] [address] Jul, Intractable chronic migraine without aura and without status migrainosus G43.719 [facility] [address] [place] [id number] Jul, History of traumatic brain injury Z87.820 ; Recurrent major depressive disorder , in partial remission F33.41 and Type 2 diabetes mellitus with unspecified complications E11.8 [facility] [id number] [id number] Jul, [facility] [id number] [place] [id number] Jul, Intractable chronic migraine without aura and without status migrainosus G43.719 [facility] [id number] [address] Jun, Anxiety F41.9 ; Traumatic brain injury, without LOC, initial encounter S06.9X0A ; Intractable chronic migraine without aura and without status migrainosus G43.719 and Recurrent major depressive disorder, in partial remission F33.41 [facility] [id number] [id number] Jun, [facility] [id number] [address] Jun, [facility] [id number] [address] Jun, Intractable chronic migraine without aura and without status migrainosus G43.719 [facility] [address] [id number], [place] [address] May, [facility] [address] [place] [id number] May, Recurrent major depressive disorder, in partial remission F33.41 ; Traumatic brain injury, without LOC, initial encounter S06.9X0A and Anxiety F41.9 [facility] [address], [place] [address] May, [facility] [id number] [address] May, [facility] [id number], [place] [address] May, Intractable chronic migraine without aura and without status migrainosus G43.719 [facility] [address] [id number] [place] [id number]49 Apr, Anxiety F41.9 ; Traumatic brain injury, without LOC, initial encounter S06.9X0A ; Intractable chronic migraine without aura and without status migrainosus G43.719 and Recurrent major depressive disorder, in partial remission F33.41 [facility] [id number], [place] [address] Apr, [facility] [id number] [place] [id number] Apr, Intractable chronic migraine without aura and without status migrainosus G43.719 [facility] [id number], [place] [address] Apr, [facility] [id number], [place] [address] Apr, [facility] [address] [place] [id number] [id number] Mar, [facility] [id number] [address] Mar, [facility] [id number] [address] Mar, [facility] [address] [place] [address] 46[address] Mar, Intractable chronic migraine without aura and without status migrainosus G43.719 [facility] [address] [place] [id number] Mar, Encounter for examination for admission to fpc Z02.2 ; History of traumatic brain injury Z87.820 ; Recurrent major depressive disorder, in partial remission F33.41 ; Anxiety F41.9 ; Obsessive-compulsive disorder, unspecified type F42.9 ; Essential hypertension I10 and Type 2 diabetes mellitus with unspecified complications E11.8 [facility] [id number] [place] [id number] Feb, [place] [address] [place] [address]25[address] 9898 Feb, Obsessive-compulsive disorder, unspecified type F42.9 ; Anxiety F41.9 and Recurrent major depressive disorder, in partial remission F33.41 [place] [address] [place] [address] 5962 Jan, Traumatic brain injury, without LOC, initial encounter S06.9X0A ; Intractable chronic migraine without aura and without status migrainosus G43.719 ; Anxiety F41.9 and Recurrent major depressive disorder, in partial remission F33.41 [place] [address] [place] [address] 80404- 8332 Jan, Intractable chronic migraine without aura and without status migrainosus G43.719 [place] [address] [place] [address] 68825- 4787 Jan, History of traumatic brain injury Z87.820 ; Anxiety F41.9 and Recurrent major depressive disorder, in partial remission F33.41 [place] [address] [place] [address] 84641- 4465 13 Jan, 2017 [facility] [address] [place] [address] Jan, 2017 History of traumatic brain injury Z87.820 and Obsessive-compulsive disorder, unspecified type F42.9 [place] [address] [place] [id number], [place] [address] 06 Jan, 2017 Traumatic brain injury, without LOC, initial encounter S06.9X0A ; Intractable chronic migraine without aura and without status migrainosus G43.719 ; Anxiety F41.9 and Recurrent major depressive disorder, in partial remission F33.41 [facility] [address], [place] [address] 05 Jan, 2017 History of traumatic brain injury Z87.820 ; Obsessive- compulsive disorder, unspecified type F42.9 ; Anxiety F41.9 and Recurrent major depressive disorder, in partial remission F33.41 [facility] [id number] [place] [id number] 31 Dec, 2016 [facility] [address] [place] [id number] [place] [id number] Dec, Intractable chronic migraine without aura and without status migrainosus G43.719 [facility] [address] [place] [address] Dec, Type 2 diabetes mellitus with unspecified complications E11.8 and Essential hypertension I10 [facility] [address] [place] [address] 72887- 5188 18 Dec, 2016 Traumatic brain injury, without LOC, initial encounter S06.9X0A [facility] [address] [id number], [place] [address] 7965 16 Dec, 2016 Traumatic brain injury, without LOC, initial encounter S06.9X0A ; Intractable chronic migraine without aura and without status migrainosus G43.719 ; Anxiety F41.9 and Recurrent major depressive disorder, in partial remission F33.41 [facility] [address], [place] [address] 5[address] 15 Dec, 2016 [facility] [address] [place] [address] 82575- 0962 11 Dec, 2016 History of traumatic brain injury Z87.820 ; Obsessive- compulsive disorder, unspecified type F42.9 ; Anxiety F41.9 and Recurrent major depressive disorder, in partial remission F33.41 [facility] [id number], [place] [address] Dec, Traumatic brain injury, without LOC, initial encounter S06.9X0A [facility] [id number], [place] [address] 9[address] Dec, Anxiety F41.9 and Recurrent major depressive disorder, in partial remission F33.41 [facility] [id number] [place] [address] 63512- 1586 Dec, Traumatic brain injury, without LOC, initial encounter S06.9X0A ; Intractable chronic migraine without aura and without status migrainosus G43.719 ; Anxiety F41.9 and Recurrent major depressive disorder, in partial remission F33.41 [facility] [address], [place] [address] 5963 Dec, [facility] [id number] [place] [id number] Nov, Intractable chronic migraine without aura and without status migrainosus G43.719 [facility] [address] [place] [id number] Nov, Obsessive-compulsive disorder, unspecified type F42.9 ; Anxiety F41.9 and Intractable chronic migraine without aura and without status migrainosus G43.719 [facility] [id number], [place] [address] 12[address] Nov, Traumatic brain injury, without LOC, initial encounter S06.9X0A ; Intractable chronic migraine without aura and without status migrainosus G43.719 ; Anxiety F41.9 and Recurrent major depressive disorder, in partial remission F33.41 [facility] [id number] [place] [id number] Nov, [facility] [id number], [place] [address] 3599 Nov, Anxiety F41.9 and Recurrent major depressive disorder, in partial remission F33.41 [facility] [id number] [address] 9524 Nov, [facility] [id number] [place] [address] [id number] Nov, [facility] [address], [place] [address] 5144 Oct, [facility] [address] [place] [address] 09378- 5463 Oct, Anxiety F41.9 and Recurrent major depressive disorder, in partial remission F33.41 [facility] [address], [place] [address] 9986 Oct, [facility] [address] [place] [address] 61169- 6520 September, Anxiety F41.9 and Recurrent major depressive disorder, in partial remission F33.41 [facility] [address], [place] [address] 5608 September, Traumatic brain injury, without LOC, initial encounter S06.9X0A ; Intractable chronic migraine without aura and without status migrainosus G43.719 ; Anxiety F41.9 and Recurrent major depressive disorder, in partial remission F33.41 [facility] [address], [place] [address] 6[address] September, [facility] [address], [place] [address] 9089 September, Anxiety F41.9 [facility] [id number], [place] [address] 2602 September, [facility] [id number] [place] [id number] September, Type 2 diabetes mellitus with unspecified complications E11.8 [facility] [id number] [address] September, Type 2 diabetes mellitus with unspecified complications E11.8 [facility] [address] [place] [id number] September, Essential hypertension I10 and History of traumatic brain injury Z87.820 [facility] [address] [id number] [place] [address] 94221- 7685 Aug, [facility] [address] [place] [id number] Aug, Type 2 diabetes mellitus with unspecified complications E11.8 and Benign prostatic hyperplasia with lower urinary tract symptoms, unspecified morphology N40.1 [facility] [address] [id number] Aug, [facility] [address] [id number] [place] [address] 44453- 1957 Aug, [place] [address] [id number] [place] [address] 13830- 2213 Jul, Traumatic brain injury, without LOC, initial encounter S06.9X0A ; Intractable chronic migraine without aura and without status migrainosus G43.719 ; Anxiety F41.9 and Recurrent major depressive disorder, in partial remission F33.41 [facility] [id number] [place] [address] 49283- 8807 Jul, [place] [id number] [place] [address] 88609- 9903 Jul, [facility] [id number] [place] [address] [id number] Jun, [facility] [id number] [place] [address] 07819- 6533 Jun, [facility] [id number] [place] [address] 02932- 7890 Jun, [facility] [address] [place] [id number] Jun, Encounter to establish care Z76.89 [facility] [id number] [place] [address] 34803- 8903 Jun, [facility] [address] [place] [address]- 6406 Jun, [facility] [address] [id number] [address] 2546 Jun, [facility] [address] [id number] [address]- 25[address] Jun, [facility] [place] [address] [id number] [place] [id number] May, Dental examination Z01.20 [facility] [place] [address] [id number] [place] [id number] Dec, Dental examination Z01.20 [facility] [place] [address] [id number] [place] [id number] September, Dental examination Z01.20 [facility] [place] [address] [id number] [place] [id number] Dec, Dental examination V72.2 [facility] [address] [id number], [place] [address]336 Aug, [facility] [address] [facility] [id number], [place] [address]- 8434 Aug, [facility] [address] [facility] [id number] [address]- 6226 Apr, [facility] [address] [facility] [id number] [address]- 1201 Nov, [facility] [address] [facility] [id number], [place] [address]- 6609 Nov, [facility] [address] [facility] [id number]1422[address] 8720 Nov, [facility] [address] [facility] [id number] 1556 Nov, [facility] [address] [facility] [id number], [place] [address]- 1990 Oct, [facility] [address] [facility] [id number] [address]- 0776 May, [facility] [address] [facility] [id number] [place] [address]- 4606 May, IMMUNIZATIONS No Known Immunizations SOCIAL HISTORY Never Assessed REASON FOR VISIT Change in DM meds PLAN OF CARE VITAL SIGNS MEDICATIONS Medication Instructions Dosage Frequency Start Date End Date Duration Status Amaryl 4 MG Orally Once a day 1 tablet with breakfast or the first main meal of the day 24h Jun, Active RESULTS No Results PROCEDURES No Known procedures INSTRUCTIONS MEDICATIONS ADMINISTERED No Known Medications MEDICAL (GENERAL) HISTORY Type Description Date Medical History History of traumatic brain injury Subdural hematoma from falling out of bed 2012 Medical History Type 2 diabetes mellitus with unspecified complications 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
--- OUTSIDE RECORDS SUMMARY | 2018-07-02 12:03 | XMS REPORT ---
Author Author NICK FONSECA Organization [facility] Address [address] [place] [address] Care Team Providers Care Card Doffer Name Role Phone NICK FONSECA Unavailable PROBLEMS Type Condition ICD9-CM Code WWQ19-ZV Code Onset Dates Condition Status SNOMED Code Problem Essential hypertension I10 Active 67817469 Problem halfway current use of insulin Z79.4 Active 756715735 Problem Anxiety F41.9 Active 85732269 Problem Benign prostatic hyperplasia with lower urinary tract symptoms, unspecified morphology N40.1 Active 081392155 Problem Persistent migraine aura without cerebral infarction and without status migrainosus, not intractable G43.509 Active 142835399 Problem Intractable chronic migraine without aura and without status migrainosus G43.719 Active 719408765 Problem Type 2 diabetes mellitus with unspecified complications E11.8 Active 30885655 Problem 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 Active 71667002 Problem Chronic pain due to trauma G89.21 Active 487308086 Problem Recurrent major depressive disorder, in partial remission F33.41 Active 76570489 Problem Traumatic brain injury, without LOC, initial encounter S06.9X0A Active 674183324 Problem Rad (reactive airway disease), mild intermittent, uncomplicated J45.20 Active 803058371754 Problem Obsessive-compulsive disorder, unspecified type F42.9 Active 931320178 Problem History of traumatic brain injury Z87.820 Active 70919724837801 Problem Hyperlipidemia, unspecified hyperlipidemia type E78.5 Active 38249000 Problem Anemia, unspecified type D64.9 Active 571109284 Problem History of gout Z87.39 Active 540841270 Problem Glaucoma, unspecified glaucoma, unspecified laterality H40.9 Active 25614813 Problem Herpes B00.9 Active 37980159 Problem Weak urinary stream R39.12 Active 64763766 Problem Gastroesophageal reflux disease without esophagitis K21.9 Active 201193796 ALLERGIES No Information ENCOUNTERS Encounter Location Date Diagnosis [facility] [id number] [address] Oct, [facility] [address] [address] Oct, [facility] [address] [address] Oct, [facility] [address] [place] [address]- [address] Oct, [facility] [address] [address] September, Anxiety F41.9 ; Traumatic brain injury, without LOC, initial encounter S06.9X0A ; Intractable chronic migraine without aura and without status migrainosus G43.719 and Recurrent major depressive disorder, in partial remission F33.41 [facility] [address] [place] [id number] September, Weight gain R63.5 and Type 2 diabetes mellitus with unspecified complications E11.8 [facility] [address] [address] September, [facility] [address] [address] Aug, [facility] [address] [facility] [id number] [place] [id number] Aug, [facility] [address] [address] Aug, [facility] [id number] [address] Jul, Intractable chronic migraine without aura and without status migrainosus G43.719 [facility] [id number] [address] Jul, Intractable chronic migraine without aura and without status migrainosus G43.719 [facility] [address] [place] [id number] Jul, History of traumatic brain injury Z87.820 ; Recurrent major depressive disorder , in partial remission F33.41 and Type 2 diabetes mellitus with unspecified complications E11.8 [facility] [address] [id number] [id number] Jul, [facility] [address] [id number] [id number] Jul, Intractable chronic migraine without aura and without status migrainosus G43.719 [facility] [id number] [address] Jun, Anxiety F41.9 ; Traumatic brain injury, without LOC, initial encounter S06.9X0A ; Intractable chronic migraine without aura and without status migrainosus G43.719 and Recurrent major depressive disorder, in partial remission F33.41 [facility] [id number] [id number] Jun, [facility] [id number] [address] Jun, [facility] [id number] [place] [id number] Jun, Intractable chronic migraine without aura and without status migrainosus G43.719 [facility] [id number] [address] May, [facility] [address] [place] [id number] May, Recurrent major depressive disorder, in partial remission F33.41 ; Traumatic brain injury, without LOC, initial encounter S06.9X0A and Anxiety F41.9 [facility] [id number] [address] May, [facility] [id number] [place] [id number] May, [facility] [id number] [address] May, Intractable chronic migraine without aura and without status migrainosus G43.719 [facility] [id number] [address] Apr, Anxiety F41.9 ; Traumatic brain injury, without LOC, initial encounter S06.9X0A ; Intractable chronic migraine without aura and without status migrainosus G43.719 and Recurrent major depressive disorder, in partial remission F33.41 [facility] [address] [address] Apr, [facility] [id number] [place] [id number] Apr, Intractable chronic migraine without aura and without status migrainosus G43.719 [facility] [address] [place] [address]- 5340 Apr, [facility] [id number] [place] [address] 43154- 0181 Apr, [facility] [id number] [place] [id number] Mar, [facility] [address] [place] [address]1661- 7[address] Mar, [facility] [id number] [place] [address] [id number] Mar, [facility] [address] [address] Mar, Intractable chronic migraine without aura and without status migrainosus G43.719 [facility] [address] [place] [id number] Mar, 2017 Encounter for examination for admission to penitentiary Z02.2 ; History of traumatic brain injury Z87.820 ; Recurrent major depressive disorder, in partial remission F33.41 ; Anxiety F41.9 ; Obsessive-compulsive disorder, unspecified type F42.9 ; Essential hypertension I10 and Type 2 diabetes mellitus with unspecified complications E11.8 [facility] [id number] [id number] Feb, [place] [address] [address] Feb, Obsessive-compulsive disorder, unspecified type F42.9 ; Anxiety F41.9 and Recurrent major depressive disorder, in partial remission F33.41 [address] [address] 27 Jan, 2017 Traumatic brain injury, without LOC, initial encounter S06.9X0A ; Intractable chronic migraine without aura and without status migrainosus G43.719 ; Anxiety F41.9 and Recurrent major depressive disorder, in partial remission F33.41 [place] [address] [place] [address]1439- [address] 20 Jan, 2017 Intractable chronic migraine without aura and without status migrainosus G43.719 [place] [address] [place] [address] 89936- 3532 19 Jan, 2017 History of traumatic brain injury Z87.820 ; Anxiety F41.9 and Recurrent major depressive disorder, in partial remission F33.41 [place] [address] [place] [address] 74575- 3298 13 Jan, 2017 [facility] and [address] [id number] 07 Jan, 2017 History of traumatic brain injury Z87.820 and Obsessive-compulsive disorder, unspecified type F42.9 [place] [address] [place] [address] 41316- 7073 06 Jan, 2017 Traumatic brain injury, without LOC, initial encounter S06.9X0A ; Intractable chronic migraine without aura and without status migrainosus G43.719 ; Anxiety F41.9 and Recurrent major depressive disorder, in partial remission F33.41 [place] [address] [place] [address] 48839- 3351 05 Jan, 2017 History of traumatic brain injury Z87.820 ; Obsessive- compulsive disorder, unspecified type F42.9 ; Anxiety F41.9 and Recurrent major depressive disorder, in partial remission F33.41 [facility] [id number] [id number] Dec, [facility] [id number] [place] [id number] Dec, Intractable chronic migraine without aura and without status migrainosus G43.719 [facility] [address] [place] [id number] Dec, Type 2 diabetes mellitus with unspecified complications E11.8 and Essential hypertension I10 [facility] [address] [place] [address] 41428- 5946 18 Dec, 2016 Traumatic brain injury, without LOC, initial encounter S06.9X0A [place] [id number] [place] [address] 49378- 8550 16 Dec, 2016 Traumatic brain injury, without LOC, initial encounter S06.9X0A ; Intractable chronic migraine without aura and without status migrainosus G43.719 ; Anxiety F41.9 and Recurrent major depressive disorder, in partial remission F33.41 [facility] [address] [place] [address] 29370- 5193 15 Dec, 2016 [facility] [id number] [place] [address] 59754- 3921 11 Dec, 2016 History of traumatic brain injury Z87.820 ; Obsessive- compulsive disorder, unspecified type F42.9 ; Anxiety F41.9 and Recurrent major depressive disorder, in partial remission F33.41 [facility] [address] [place] [address] 01455- 0840 09 Dec, 2016 Traumatic brain injury, without LOC, initial encounter S06.9X0A [facility] [address] [place] [address] 09862- 4519 03 Dec, 2016 Anxiety F41.9 and Recurrent major depressive disorder, in partial remission F33.41 [facility] [id number] [address]- [address] 02 Dec, 2016 Traumatic brain injury, without LOC, initial encounter S06.9X0A ; Intractable chronic migraine without aura and without status migrainosus G43.719 ; Anxiety F41.9 and Recurrent major depressive disorder, in partial remission F33.41 [facility] [id number] [address] Dec, [facility] [address] [id number] [id number] Nov, Intractable chronic migraine without aura and without status migrainosus G43.719 [facility] [address] [place] [id number] Nov, Obsessive-compulsive disorder, unspecified type F42.9 ; Anxiety F41.9 and Intractable chronic migraine without aura and without status migrainosus G43.719 [facility] [id number] [address]- [address] Nov, Traumatic brain injury, without LOC, initial encounter S06.9X0A ; Intractable chronic migraine without aura and without status migrainosus G43.719 ; Anxiety F41.9 and Recurrent major depressive disorder, in partial remission F33.41 [facility] [address] [id number] [id number] Nov, [facility] [id number] [address] Nov, Anxiety F41.9 and Recurrent major depressive disorder, in partial remission F33.41 [facility] [id number] [address]- 2631 Nov, [facility] [address] [id number] [place] [id number] Nov, [facility] [id number] [address]- 0574 Oct, [facility] [address] [place] [address] 26779- 3702 Oct, Anxiety F41.9 and Recurrent major depressive disorder, in partial remission F33.41 [facility] [address] [place] [address] 69372- 1270 Oct, [facility] [address] [address]- 9138 September, Anxiety F41.9 and Recurrent major depressive disorder, in partial remission F33.41 [facility] [address] [address]- 1481 September, Traumatic brain injury, without LOC, initial encounter S06.9X0A ; Intractable chronic migraine without aura and without status migrainosus G43.719 ; Anxiety F41.9 and Recurrent major depressive disorder, in partial remission F33.41 [facility] [address] [place] [address] 39969- 3084 September, [facility] [address] [place] [address] 91670- 7736 September, Anxiety F41.9 [facility] [address] [place] [address] 23199- 7782 September, [facility] [id number] [address] September, Type 2 diabetes mellitus with unspecified complications E11.8 [facility] [id number] [place] [address] [id number] September, Type 2 diabetes mellitus with unspecified complications E11.8 [facility] [address] [place] [address] September, Essential hypertension I10 and History of traumatic brain injury Z87.820 [facility] [address] [address]- 5941 Aug, [facility] [address] [place] [id number] Aug, Type 2 diabetes mellitus with unspecified complications E11.8 and Benign prostatic hyperplasia with lower urinary tract symptoms, unspecified morphology N40.1 [facility] [id number] [id number] Aug, [facility] [address] [place] [address] 64202- 1001 Aug, [facility] [id number] [place] [address] 41255- 9121 Jul, Traumatic brain injury, without LOC, initial encounter S06.9X0A ; Intractable chronic migraine without aura and without status migrainosus G43.719 ; Anxiety F41.9 and Recurrent major depressive disorder, in partial remission F33.41 [facility] [id number] [place] [address] 30581- 2639 Jul, [facility] [id number] [place] [address] 04670- 4382 Jul, [facility] [address] [id number] Jun, [facility] [id number] [place] [address] 41485- 0159 Jun, [facility] [id number] [place] [address] 81483- 5817 Jun, [facility] [address] [place] [address] [id number] Jun, Encounter to establish care Z76.89 [facility] [id number] [place] [address] 57736- 1349 Jun, [facility] [address] [place] [address] 86626- 9610 Jun, [facility] [id number] [place] [address] 06147- 8201 Jun, [facility] [address] [address]- 1425 Jun, [facility] [place] [address] [facility] [id number] [place] [id number] May, [facility]01.20 [facility] [place] [address] [id number] [place] [id number] Dec, Dental examination Z01.20 [facility] [place] [address] [id number] [place] [id number] September, [facility] Z01.20 [facility] [address] [id number] [place] [id number] Dec, Dental examination V72.2 [facility] [id number] Aug, [facility] [address] [address]- 2977 Aug, [facility] [id number] [address] 1570 Apr, [facility] [address] [address] Nov, [facility] [id number] [address]- 0608 Nov, [facility] [address] [address]- 5357 Nov, [facility] [id number] [address]- 3045 Nov, [facility] [id number] [address]- 6783 Oct, [facility] [id number] [address]- 8993 May, [facility] [id number] May, IMMUNIZATIONS No Known Immunizations SOCIAL HISTORY Never Assessed REASON FOR VISIT Refill request for 05/31/17 PLAN OF CARE VITAL SIGNS MEDICATIONS Medication Instructions Dosage Frequency Start Date End Date Duration Status Morphine Sulfate ER 15 mg Orally Once a day at bedtime 1 tablet May, 28 days Active RESULTS No Results [...]
--- OUTSIDE RECORDS SUMMARY | 2018-07-02 12:03 | XMS REPORT ---
Author Author NICK FONSECA Organization [facility] Address [address] [place] [address] Care Team Providers Care Tree Chipper Name Role Phone NICK FONSECA Unavailable PROBLEMS Type Condition ICD9-CM Code ZHZ27-MN Code Onset Dates Condition Status SNOMED Code Problem Essential hypertension I10 Active 70061112 Problem custodial current use of insulin Z79.4 Active 225645880 Problem Anxiety F41.9 Active 54280785 Problem Benign prostatic hyperplasia with lower urinary tract symptoms, unspecified morphology N40.1 Active 858402257 Problem Persistent migraine aura without cerebral infarction and without status migrainosus, not intractable G43.509 Active 019596500 Problem Intractable chronic migraine without aura and without status migrainosus G43.719 Active 082980728 Problem Type 2 diabetes mellitus with unspecified complications E11.8 Active 35996557 Problem 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 Active 77349094 Problem Chronic pain due to trauma G89.21 Active 823697336 Problem Recurrent major depressive disorder, in partial remission F33.41 Active 16105778 Problem Traumatic brain injury, without LOC, initial encounter S06.9X0A Active 958794103 Problem Rad (reactive airway disease), mild intermittent, uncomplicated J45.20 Active 406854637125 Problem Obsessive-compulsive disorder, unspecified type F42.9 Active 621895531 Problem History of traumatic brain injury Z87.820 Active 61177155315036 Problem Hyperlipidemia, unspecified hyperlipidemia type E78.5 Active 63362025 Problem Anemia, unspecified type D64.9 Active 258861540 Problem History of gout Z87.39 Active 135261191 Problem Glaucoma, unspecified glaucoma, unspecified laterality H40.9 Active 81827503 Problem Herpes B00.9 Active 46306275 Problem Weak urinary stream R39.12 Active 09056999 Problem Gastroesophageal reflux disease without esophagitis K21.9 Active 306446168 ALLERGIES No Information ENCOUNTERS Encounter Location Date Diagnosis [place] [address] [address] Dec, [place] [address] [place] [id number] [place] [address] Oct, [facility] [address] [place] [id number] Oct, Excessive anger R45.4 and Obsessive-compulsive disorder, unspecified type F42.9 [place] [address] [place] [id number] [place] [address]- 4568 Oct, Anxiety F41.9 ; Traumatic brain injury, without LOC, initial encounter S06.9X0A ; Intractable chronic migraine without aura and without status migrainosus G43.719 and Recurrent major depressive disorder, in partial remission F33.41 [place] [address] [place] [address] 47273- 9731 12 Oct, 2017 [place] [address] [place] [id number] [place] [address] 70123- 8622 05 Oct, 2017 [place] [address] [place] [address]65- 4352 04 Oct, 2017 [place] [address] [place] [address]69- 2316 23 Sep, 2017 Anxiety F41.9 ; Traumatic brain injury, without LOC, initial encounter S06.9X0A ; Intractable chronic migraine without aura and without status migrainosus G43.719 and Recurrent major depressive disorder, in partial remission F33.41 M[facility]ed With [facility] [address] [place] [id number] September, Weight gain R63.5 and Type 2 diabetes mellitus with unspecified complications E11.8 [place] [address] [place] [address]6067- 5038 September, [place] [address] [address] Aug, [facility] [address] [id number] [id number] Aug, [facility] [id number] [address] Aug, [facility] [address] [address] Jul, Intractable chronic migraine without aura and without status migrainosus G43.719 [facility] [id number] [address] Jul, Intractable chronic migraine without aura and without status migrainosus G43.719 [facility]ed [facility] [address] [place] [id number] Jul, History of traumatic brain injury Z87.820 ; Recurrent major depressive disorder , in partial remission F33.41 and Type 2 diabetes mellitus with unspecified complications E11.8 [facility] [id number] [id number] Jul, [facility] [address] [place] [address] [id number] [place] [id number] Jul, Intractable chronic migraine without aura and without status migrainosus G43.719 [facility] [address] [id number] [address] Jun, Anxiety F41.9 ; Traumatic brain injury, without LOC, initial encounter S06.9X0A ; Intractable chronic migraine without aura and without status migrainosus G43.719 and Recurrent major depressive disorder, in partial remission F33.41 [facility] [id number] [id number] Jun, [facility] [id number] [address] Jun, [facility] [id number] [id number] Jun, Intractable chronic migraine without aura and without status migrainosus G43.719 [facility] [address] [id number] [address] May, [facility] [address] [place], [place] [id number] May, Recurrent major depressive disorder, in partial remission F33.41 ; Traumatic brain injury, without LOC, initial encounter S06.9X0A and Anxiety F41.9 [facility] [address] [address] May, [facility] [id number] [address] May, [facility] [address] [id number] [address] May, Intractable chronic migraine without aura and without status migrainosus G43.719 [facility] [address] [place] [address] [id number] [place] [address] 2747 Apr, Anxiety F41.9 ; Traumatic brain injury, without LOC, initial encounter S06.9X0A ; Intractable chronic migraine without aura and without status migrainosus G43.719 and Recurrent major depressive disorder, in partial remission F33.41 [facility] [address] [id number] [address] Apr, [facility] [id number] [place] [id number] Apr, Intractable chronic migraine without aura and without status migrainosus G43.719 [facility] [id number] [address] Apr, [facility] [id number] [address] Apr, [facility] [address] [id number] [id number] Mar, [facility] [address] [id number] [address] Mar, [facility] [address] [place] [id number] [address] Mar, [facility] [address] [place] [address] 14403- 8446 Mar, Intractable chronic migraine without aura and without status migrainosus G43.719 [facility] [address] [place] [id number] Mar, Encounter for examination for admission to fpc Z02.2 ; History of traumatic brain injury Z87.820 ; Recurrent major depressive disorder, in partial remission F33.41 ; Anxiety F41.9 ; Obsessive-compulsive disorder, unspecified type F42.9 ; Essential hypertension I10 and Type 2 diabetes mellitus with unspecified complications E11.8 [facility] [id number] [place] [id number] Feb, [place] [address] [place] [address]9838- 3724 Feb, Obsessive-compulsive disorder, unspecified type F42.9 ; Anxiety F41.9 and Recurrent major depressive disorder, in partial remission F33.41 [place] [address] [place] [address] 40096- 1084 Jan, Traumatic brain injury, without LOC, initial encounter S06.9X0A ; Intractable chronic migraine without aura and without status migrainosus G43.719 ; Anxiety F41.9 and Recurrent major depressive disorder, in partial remission F33.41 [place] [address] [place] [address] 60674- 2368 Jan, Intractable chronic migraine without aura and without status migrainosus G43.719 [place] [address] [place] [address] 99236- 9729 Jan, History of traumatic brain injury Z87.820 ; Anxiety F41.9 and Recurrent major depressive disorder, in partial remission F33.41 [place] [address] [place] [address] 07422- 9786 13 Jan, 2017 [facility] [address] [place] [id number] 07 Jan, 2017 History of traumatic brain injury Z87.820 and Obsessive-compulsive disorder, unspecified type F42.9 [place] [address] [place] [id number] [address] 06 Jan, 2017 Traumatic brain injury, without LOC, initial encounter S06.9X0A ; Intractable chronic migraine without aura and without status migrainosus G43.719 ; Anxiety F41.9 and Recurrent major depressive disorder, in partial remission F33.41 [facility] [address] [address] 05 Jan, 2017 History of traumatic brain injury Z87.820 ; Obsessive- compulsive disorder, unspecified type F42.9 ; Anxiety F41.9 and Recurrent major depressive disorder, in partial remission F33.41 [facility] [address] [place] [address] [id number] [place] [id number] 31 Dec, 2016 [facility] [address] [place] [id number] [place] [address] [id number] Dec, Intractable chronic migraine without aura and without status migrainosus G43.719 [facility] [address] [place] [id number] Dec, Type 2 diabetes mellitus with unspecified complications E11.8 and Essential hypertension I10 [facility] [address] [place] [address] 18822- 4327 18 Dec, 2016 Traumatic brain injury, without LOC, initial encounter S06.9X0A [facility] [address] [place] [id number] [address]- 1605 16 Dec, 2016 Traumatic brain injury, without LOC, initial encounter S06.9X0A ; Intractable chronic migraine without aura and without status migrainosus G43.719 ; Anxiety F41.9 and Recurrent major depressive disorder, in partial remission F33.41 [facility] [address] [address]- [address]10 15 Dec, 2016 [facility] [address] [place] [address] 36764- 3638 11 Dec, 2016 History of traumatic brain injury Z87.820 ; Obsessive- compulsive disorder, unspecified type F42.9 ; Anxiety F41.9 and Recurrent major depressive disorder, in partial remission F33.41 [facility] [address] [id number] [address]- 6469 Dec, Traumatic brain injury, without LOC, initial encounter S06.9X0A [facility] [address] [id number] [address]- 8514 Dec, Anxiety F41.9 and Recurrent major depressive disorder, in partial remission F33.41 [facility] [address] [place] [id number] [place] [address] 34544- 4348 Dec, Traumatic brain injury, without LOC, initial encounter S06.9X0A ; Intractable chronic migraine without aura and without status migrainosus G43.719 ; Anxiety F41.9 and Recurrent major depressive disorder, in partial remission F33.41 [facility] [address] [address]- 0427 Dec, [facility] [address] [place] [id number] [place] [address] [id number] Nov, Intractable chronic migraine without aura and without status migrainosus G43.719 [facility] [address] [place] [id number] Nov, Obsessive-compulsive disorder, unspecified type F42.9 ; Anxiety F41.9 and Intractable chronic migraine without aura and without status migrainosus G43.719 [facility] [id number] [address]- 5937 Nov, Traumatic brain injury, without LOC, initial encounter S06.9X0A ; Intractable chronic migraine without aura and without status migrainosus G43.719 ; Anxiety F41.9 and Recurrent major depressive disorder, in partial remission F33.41 [facility] [address] [place] [id number] [place] [id number] Nov, [facility] [address] [id number] [address]- 7695 Nov, Anxiety F41.9 and Recurrent major depressive disorder, in partial remission F33.41 [facility] [address] [id number] [address]- 9718 Nov, [facility] [address] [place] [address] [id number] [place] [id number] Nov, [facility] [address] [address]- [address]268 Oct, [facility] [address] [place] [address] 39693- 2867 Oct, Anxiety F41.9 and Recurrent major depressive disorder, in partial remission F33.41 [facility] [address] [address]- 7[address] Oct, [facility] [address] [place] [address] 57129- 8779 September, Anxiety F41.9 and Recurrent major depressive disorder, in partial remission F33.41 [facility] [address] [address] September, Traumatic brain injury, without LOC, initial encounter S06.9X0A ; Intractable chronic migraine without aura and without status migrainosus G43.719 ; Anxiety F41.9 and Recurrent major depressive disorder, in partial remission F33.41 [facility] [address] [address]- [address]23 September, [facility] [address] [address]- 4812 September, Anxiety F41.9 [facility] [address] [id number] [address]- 8497 September, [facility] [address] [place] [address] [id number] [place] [address] [id number] September, Type 2 diabetes mellitus with unspecified complications E11.8 [facility] [id number] [id number] September, Type 2 diabetes mellitus with unspecified complications E11.8 [facility] [address] [place] [id number] September, Essential hypertension I10 and History of traumatic brain injury Z87.820 [facility] [address] [place] [id number] [place] [address] 15387- 2481 Aug, [facility] [address] [place] [id number] Aug, Type 2 diabetes mellitus with unspecified complications E11.8 and Benign prostatic hyperplasia with lower urinary tract symptoms, unspecified morphology N40.1 [facility] [address] [id number] Aug, [facility] [address] [place] [id number] [place] [address] 76062- 3838 Aug, [place] [address] [place] [address] [id number] [place] [address] 81618- 0614 Jul, Traumatic brain injury, without LOC, initial encounter S06.9X0A ; Intractable chronic migraine without aura and without status migrainosus G43.719 ; Anxiety F41.9 and Recurrent major depressive disorder, in partial remission F33.41 [facility] [address] [place] [address] [id number] [place] [address] 03625- 9535 Jul, [place] [address] [place] [address] [id number] [place] [address] 43099- 5244 Jul, [facility] [address] [place] [id number] [place] [address] [id number] Jun, [facility] [address] [place] [address] [id number] [place] [address] 07247- 0935 Jun, [facility] [address] [place] [address] [id number] [place] [address] 63769- 2305 Jun, [facility] [address] [place] [id number] Jun, Encounter to establish care Z76.89 [facility] [address] [place] [address] [id number] [place] [address] 15143- 4782 Jun, [facility] [address] [place] [address]- 8006 Jun, [facility] [address] [id number] [address] 2546 Jun, [facility] [address] [id number] [address]- 25[address] Jun, [facility] [place] [address] [id number] [place] [id number] May, Dental examination Z01.20 [facility] [place] [address] [id number] [place] [id number] Dec, Dental examination Z01.20 [facility] [place] [address] [id number] [place] [id number] September, Dental examination Z01.20 [facility] [place] [address] [id number] [place] [id number] Dec, Dental examination V72.2 [facility] [address] [id number] [address]- 7[address] Aug, [facility] [address] [facility] [id number] [address]- 9715 Aug, [facility] [address] [facility] [id number] [address]- 7796 Apr, [facility] [address] [facility] [id number] [address]- 3044 Nov, [facility] [address] [facility] [id number] [place] [address]- 6557 Nov, [facility] [address] [facility] [id number] [place]- 4000 Nov, [facility] [address] [facility] [id number] [place] 3046 Nov, [facility] [address] [facility] [id number] [address]- 3000 Oct, [facility] [address] [facility] [id number] [address] May, [facility] [address] [facility] [id number] [place] [address]- 1587 May, IMMUNIZATIONS No Known Immunizations SOCIAL HISTORY Never Assessed REASON FOR VISIT Controlled Med Refill PLAN OF CARE VITAL SIGNS MEDICATIONS Medication Instructions Dosage Frequency Start Date End Date Duration Status Morphine Sulfate ER 15 mg Orally Once a day at bedtime 1 tablet Jun, 28 days Active RESULTS No Results PROCEDURES [...] elbow Hospitalization History left ankle Hospitalization History [facility]
--- OUTSIDE RECORDS SUMMARY | 2018-07-02 12:04 | XMS REPORT ---
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 [employer] Name Role Phone NICK FONSECA Unavailable PROBLEMS Type Condition ICD9-CM Code PTA12-QC Code Onset Dates Condition Status SNOMED Code Problem Essential hypertension I10 Active 66301133 Problem FPC current use of insulin Z79.4 Active 210958202 Problem Anxiety F41.9 Active 15545575 Problem Benign prostatic hyperplasia with lower urinary tract symptoms, unspecified morphology N40.1 Active 773963725 Problem Persistent migraine aura without cerebral infarction and without status migrainosus, not intractable G43.509 Active 986125576 Problem Intractable chronic migraine without aura and without status migrainosus G43.719 Active 693565019 Problem Type 2 diabetes mellitus with unspecified complications E11.8 Active 84415243 Problem 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 Active 42872961 Problem Chronic pain due to trauma G89.21 Active 588728471 Problem Recurrent major depressive disorder, in partial remission F33.41 Active 25804433 Problem Traumatic brain injury, without LOC, initial encounter S06.9X0A Active 760431522 Problem Rad (reactive airway disease), mild intermittent, uncomplicated J45.20 Active 528747990180 Problem Obsessive-compulsive disorder, unspecified type F42.9 Active 417470260 Problem History of traumatic brain injury Z87.820 Active 80468108633452 Problem Hyperlipidemia, unspecified hyperlipidemia type E78.5 Active 69735552 Problem Anemia, unspecified type D64.9 Active 444853165 Problem History of gout Z87.39 Active 102701393 Problem Glaucoma, unspecified glaucoma, unspecified laterality H40.9 Active 06762914 Problem Herpes B00.9 Active 01731768 Problem Weak urinary stream R39.12 Active 13082061 Problem Gastroesophageal reflux disease without esophagitis K21.9 Active 645929860 ALLERGIES No Information ENCOUNTERS Encounter Location Date Diagnosis [facility] [address] [facility] [id number], [place] [address] September, [facility] [address] [facility] [id number] [place] [id number] Aug, [facility] [address] [id number], [place] [address] Aug, [facility] [id number], [place] [address] Jul, Intractable chronic migraine without aura and without status migrainosus G43.719 [facility] [address] [id number], [place] [address] Jul, Intractable chronic migraine without aura and without status migrainosus G43.719 [facility] [address] [place] [id number] Jul, History of traumatic brain injury Z87.820 ; Recurrent major depressive disorder , in partial remission F33.41 and Type 2 diabetes mellitus with unspecified complications E11.8 [facility] [address] [id number] [id number] Jul, [facility] [id number] [place] [id number] Jul, Intractable chronic migraine without aura and without status migrainosus G43.719 [facility] [id number], [place] [address] Jun, Anxiety F41.9 ; Traumatic brain injury, without LOC, initial encounter S06.9X0A ; Intractable chronic migraine without aura and without status migrainosus G43.719 and Recurrent major depressive disorder, in partial remission F33.41 [facility] [id number] [id number] 13 Jun, 2017 [facility] [address] [id number] [id number] Jun, [facility] [address] [id number] [id number] Jun, Intractable chronic migraine without aura and without status migrainosus G43.719 [facility] [address] [id number], [place] [address] May, [facility] [address] [place] [id number] May, Recurrent major depressive disorder, in partial remission F33.41 ; Traumatic brain injury, without LOC, initial encounter S06.9X0A and Anxiety F41.9 [facility] [id number] [place] [address] May, [facility] [id number] [place] [address] [id number] May, [facility] [id number] [place] [address] May, Intractable chronic migraine without aura and without status migrainosus G43.719 [facility] [id number] [place] [address] Apr, Anxiety F41.9 ; Traumatic brain injury, without LOC, initial encounter S06.9X0A ; Intractable chronic migraine without aura and without status migrainosus G43.719 and Recurrent major depressive disorder, in partial remission F33.41 [facility] [id number], [place] [address] Apr, [facility] [id number] [place] [address] [id number] Apr, Intractable chronic migraine without aura and without status migrainosus G43.719 [facility] [id number] [address] Apr, [facility] [id number] [place] [address] [id number] 3806 Apr, [facility] [id number] [place] [address] [id number] Mar, [facility] [place] [id number] [place] [address]97 Mar, [facility] [id number] [id number] Mar, [place] [address] [place] [address] Mar, Intractable chronic migraine without aura and without status migrainosus G43.719 [facility] [address] [place] [id number] Mar, Encounter for examination for admission to senior living Z02.2 ; History of traumatic brain injury Z87.820 ; Recurrent major depressive disorder, in partial remission F33.41 ; Anxiety F41.9 ; Obsessive-compulsive disorder, unspecified type F42.9 ; Essential hypertension I10 and Type 2 diabetes mellitus with unspecified complications E11.8 [facility] [id number] [id number] Feb, [place] [id number] [place] [address] Feb, Obsessive-compulsive disorder, unspecified type F42.9 ; Anxiety F41.9 and Recurrent major depressive disorder, in partial remission F33.41 [place] [id number] [place] [address] 27 Jan, 2017 Traumatic brain injury, without LOC, initial encounter S06.9X0A ; Intractable chronic migraine without aura and without status migrainosus G43.719 ; Anxiety F41.9 and Recurrent major depressive disorder, in partial remission F33.41 [place] [address] [id number], [place] [address] 20 Jan, 2017 Intractable chronic migraine without aura and without status migrainosus G43.719 [place] [address] [place] [address]- [address] 19 Jan, 2017 History of traumatic brain injury Z87.820 ; Anxiety F41.9 and Recurrent major depressive disorder, in partial remission F33.41 [place] [id number] [place] [address] 13 Jan, 2017 [facility] [address] [place] [id number] 07 Jan, 2017 History of traumatic brain injury Z87.820 and Obsessive-compulsive disorder, unspecified type F42.9 [facility] [address], [place] [address] 06 Jan, 2017 Traumatic brain injury, without LOC, initial encounter S06.9X0A ; Intractable chronic migraine without aura and without status migrainosus G43.719 ; Anxiety F41.9 and Recurrent major depressive disorder, in partial remission F33.41 [facility] [id number], [place] [address] 05 Jan, 2017 History of traumatic brain injury Z87.820 ; Obsessive- compulsive disorder, unspecified type F42.9 ; Anxiety F41.9 and Recurrent major depressive disorder, in partial remission F33.41 [facility] [id number][place] [id number] 31 Dec, 2016 [facility] [id number] [place] [address] [id number] Dec, Intractable chronic migraine without aura and without status migrainosus G43.719 [facility] [address] [place] [id number] Dec, Type 2 diabetes mellitus with unspecified complications E11.8 and Essential hypertension I10 [facility] [id number], [place] [address] Dec, Traumatic brain injury, without LOC, initial encounter S06.9X0A [facility] [id number], [place] [address] 16 Dec, 2016 Traumatic brain injury, without LOC, initial encounter S06.9X0A ; Intractable chronic migraine without aura and without status migrainosus G43.719 ; Anxiety F41.9 and Recurrent major depressive disorder, in partial remission F33.41 [facility] [id number], [place] [address] 15 Dec, 2016 [facility] [id number], [place] [address] Dec, History of traumatic brain injury Z87.820 ; Obsessive- compulsive disorder, unspecified type F42.9 ; Anxiety F41.9 and Recurrent major depressive disorder, in partial remission F33.41 [facility] [id number], [place] [address] Dec, Traumatic brain injury, without LOC, initial encounter S06.9X0A [facility] [address], [place] [address] Dec, Anxiety F41.9 and Recurrent major depressive disorder, in partial remission F33.41 [place] [address] [place] [address] 02 Dec, 2016 Traumatic brain injury, without LOC, initial encounter S06.9X0A ; Intractable chronic migraine without aura and without status migrainosus G43.719 ; Anxiety F41.9 and Recurrent major depressive disorder, in partial remission F33.41 [place] [address], [place] [address] Dec, [facility] [id number] [place] [address] [id number] Nov, Intractable chronic migraine without aura and without status migrainosus G43.719 [facility] [address] [place] [id number] Nov, Obsessive-compulsive disorder, unspecified type F42.9 ; Anxiety F41.9 and Intractable chronic migraine without aura and without status migrainosus G43.719 [facility] [id number], [place] [address] Nov, Traumatic brain injury, without LOC, initial encounter S06.9X0A ; Intractable chronic migraine without aura and without status migrainosus G43.719 ; Anxiety F41.9 and Recurrent major depressive disorder, in partial remission F33.41 [facility] [id number], [place] [id number] Nov, [facility] [id number], [place] [address] Nov, Anxiety F41.9 and Recurrent major depressive disorder, in partial remission F33.41 [facility] [address], [place] [address] Nov, [facility] [address] [id number] [id number] Nov, [facility] [address], [place] [address] Oct, [facility] [address] [place] [address]77- 3274 Oct, Anxiety F41.9 and Recurrent major depressive disorder, in partial remission F33.41 [facility] [address], [place] [address] Oct, [facility] [address], [place] [address] September, Anxiety F41.9 and Recurrent major depressive disorder, in partial remission F33.41 [facility] [address], [place] [address] September, Traumatic brain injury, without LOC, initial encounter S06.9X0A ; Intractable chronic migraine without aura and without status migrainosus G43.719 ; Anxiety F41.9 and Recurrent major depressive disorder, in partial remission F33.41 [facility] [address], [place] [address] September, [facility] [address], [place] [address] September, Anxiety F41.9 [facility] [address], [place] [address] September, [facility] [id number][place] [id number] September, Type 2 diabetes mellitus with unspecified complications E11.8 [facility] [id number][place] [id number] September, Type 2 diabetes mellitus with unspecified complications E11.8 [facility] [address] [place] [address] [id number] September, Essential hypertension I10 and History of traumatic brain injury Z87.820 [facility] [address] [place] [address] [id number]- 4817 Aug, [facility] [address] [place] [address] [id number] Aug, Type 2 diabetes mellitus with unspecified complications E11.8 and Benign prostatic hyperplasia with lower urinary tract symptoms, unspecified morphology N40.1 [facility] [id number] [address] Aug, [facility] [address] [address] Aug, [facility] [address] [place] [address] [id number]- 5603 Jul, Traumatic brain injury, without LOC, initial encounter S06.9X0A ; Intractable chronic migraine without aura and without status migrainosus G43.719 ; Anxiety F41.9 and Recurrent major depressive disorder, in partial remission F33.41 [facility] [address] [address] Jul, [facility] [address] [address] Jul, [facility] [id number] [place] [address] [id number] Jun, [facility] [id number] [place] [address] [id number]- 3650 Jun, [facility] [address] [address] Jun, [facility] [address] [place] [address] [id number] Jun, Encounter to establish care Z76.89 [facility] [address] [id number], [place] [address] Jun, [facility] [address] [facility] [id number], [place] [address]- [address] Jun, [facility] [address] [facility] [id number], [place] [address] 2546 Jun, [facility] [address] [facility] [id number], [place] [address] 2546 Jun, [facility] [place] [address] [id number] [place] [id number] May, Dental examination Z01.20 [facility] [place] [address] [id number] [place] [id number] Dec, Dental examination Z01.20 [facility] [place] [address] [id number] [place] [id number] September, Dental examination Z01.20 [facility] [place] [address] [id number] [place] [address] Dec, Dental examination V72.2 [facility] [address] [facility] [id number], [place] [address]- [address] Aug, [facility] [id number], [place] [address] Aug, [facility] [id number], [place] [address] Apr, [facility] [address] [facility] [id number], [place] [address]- [address] Nov, [facility] [address] [facility] [id number], [place] [address]- 3416 Nov, [facility] [address] [facility] [id number], [place] [address]- [address] Nov, [facility] [id number], [place] [address]- 2146 Nov, [facility] [address] [facility] [id number] [place] [address]- [address] Oct, [facility] [address] [facility] [id number], [place] [address]- 25[address] May, [facility] [address] [facility] [id number] [place] [address]- 1116 May, IMMUNIZATIONS No Known Immunizations SOCIAL HISTORY Never Assessed REASON FOR VISIT Controlled Med Refill PLAN OF CARE VITAL SIGNS MEDICATIONS Medication Instructions Dosage Frequency Start Date End Date Duration Status Morphine Sulfate ER 15 mg Orally Once a day at bedtime 1 tablet Dec, 30 days Active RESULTS No Results PROCEDURES No [...] elbow Hospitalization History left ankle Hospitalization History [facility]
--- OUTSIDE RECORDS SUMMARY | 2018-07-02 12:04 | XMS REPORT ---
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 Name Role Phone NICK FONSECA Unavailable PROBLEMS Type Condition ICD9-CM Code CEO35-TQ Code Onset Dates Condition Status SNOMED Code Problem Essential hypertension I10 Active 71674065 Problem detention current use of insulin Z79.4 Active 963845967 Problem Anxiety F41.9 Active 66043884 Problem Benign prostatic hyperplasia with lower urinary tract symptoms, unspecified morphology N40.1 Active 287962613 Problem Persistent migraine aura without cerebral infarction and without status migrainosus, not intractable G43.509 Active 048700290 Problem Intractable chronic migraine without aura and without status migrainosus G43.719 Active 642912125 Problem Type 2 diabetes mellitus with unspecified complications E11.8 Active 10886338 Problem 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 Active 35783162 Problem Chronic pain due to trauma G89.21 Active 494154987 Problem Recurrent major depressive disorder, in partial remission F33.41 Active 20465025 Problem Traumatic brain injury, without LOC, initial encounter S06.9X0A Active 129003495 Problem Rad (reactive airway disease), mild intermittent, uncomplicated J45.20 Active 615092830761 Problem Obsessive-compulsive disorder, unspecified type F42.9 Active 420649817 Problem History of traumatic brain injury Z87.820 Active 69471979708283 Problem Hyperlipidemia, unspecified hyperlipidemia type E78.5 Active 42715967 Problem Anemia, unspecified type D64.9 Active 884213300 Problem History of gout Z87.39 Active 421975970 Problem Glaucoma, unspecified glaucoma, unspecified laterality H40.9 Active 43514021 Problem Herpes B00.9 Active 32583474 Problem Weak urinary stream R39.12 Active 17506234 Problem Gastroesophageal reflux disease without esophagitis K21.9 Active 578508802 ALLERGIES No Information ENCOUNTERS Encounter Location Date Diagnosis [place] [address] [address] Dec, [place] [address] [place] [id number] [place] [address]261[address]672 Oct, [facility] [address] [place] [id number] Oct, Excessive anger R45.4 and Obsessive-compulsive disorder, unspecified type F42.9 [place] [id number] [place] [address] 97104- 1781 Oct, Anxiety F41.9 ; Traumatic brain injury, without LOC, initial encounter S06.9X0A ; Intractable chronic migraine without aura and without status migrainosus G43.719 and Recurrent major depressive disorder, in partial remission F33.41 [place] [address] [place] [address] 17076- 0959 12 Oct, 2017 [place] [id number] [place] [address] 01615- 3679 05 Oct, 2017 [place] [id number] [place] [address] 70283- 3811 04 Oct, 2017 [place] [address] [place] [address] 23299- 2844 23 Sep, 2017 Anxiety F41.9 ; Traumatic brain injury, without LOC, initial encounter S06.9X0A ; Intractable chronic migraine without aura and without status migrainosus G43.719 and Recurrent major depressive disorder, in partial remission F33.41 [facility] [address] [place] [id number] September, Weight gain R63.5 and Type 2 diabetes mellitus with unspecified complications E11.8 [place] [id number] [place] [address] 14331- 5863 September, [place] [address] [address] Aug, [facility] [id number] [id number] Aug, [facility] [id number] [address] Aug, [facility] [address] [address] Jul, Intractable chronic migraine without aura and without status migrainosus G43.719 [facility] [id number] [address] Jul, Intractable chronic migraine without aura and without status migrainosus G43.719 [facility] [address] [place] [id number] Jul, History of traumatic brain injury Z87.820 ; Recurrent major depressive disorder , in partial remission F33.41 and Type 2 diabetes mellitus with unspecified complications E11.8 [facility] [id number] [id number] Jul, [facility] [id number] [place] [id number] Jul, Intractable chronic migraine without aura and without status migrainosus G43.719 [facility] [id number] [address] Jun, Anxiety F41.9 ; Traumatic brain injury, without LOC, initial encounter S06.9X0A ; Intractable chronic migraine without aura and without status migrainosus G43.719 and Recurrent major depressive disorder, in partial remission F33.41 [facility] [id number] [id number] Jun, [facility] [id number] [address] Jun, [facility] [id number] [id number] Jun, Intractable chronic migraine without aura and without status migrainosus G43.719 [facility] [id number] [address] May, [facility] [address] [place] [id number] May, Recurrent major depressive disorder, in partial remission F33.41 ; Traumatic brain injury, without LOC, initial encounter S06.9X0A and Anxiety F41.9 [facility] [address] [address] May, [facility] [id number] [id number] May, [facility] [id number] [address] May, Intractable chronic migraine without aura and without status migrainosus G43.719 [facility] [id number] [place] [id number]- 9271 Apr, Anxiety F41.9 ; Traumatic brain injury, without LOC, initial encounter S06.9X0A ; Intractable chronic migraine without aura and without status migrainosus G43.719 and Recurrent major depressive disorder, in partial remission F33.41 [facility] [id number] [address] Apr, [facility] [id number] [place] [id number] Apr, Intractable chronic migraine without aura and without status migrainosus G43.719 [facility] [id number] [address] Apr, [facility] [id number] [address] Apr, [facility] [address] [place] [id number] [address] Mar, [facility] [id number] [address] Mar, [facility] [id number] [id number] Mar, [facility] [address] [place] [address] 95063- 3172 Mar, Intractable chronic migraine without aura and without status migrainosus G43.719 [facility] [address] [place] [id number] Mar, En[facility] Z02.2 ; History of traumatic brain injury Z87.820 ; Recurrent major depressive disorder, in partial remission F33.41 ; Anxiety F41.9 ; Obsessive-compulsive disorder, unspecified type F42.9 ; Essential hypertension I10 and Type 2 diabetes mellitus with unspecified complications E11.8 [facility] [id number] [place] [id number] Feb, [place] [address] [place] [address] 48522- 5974 Feb, Obsessive-compulsive disorder, unspecified type F42.9 ; Anxiety F41.9 and Recurrent major depressive disorder, in partial remission F33.41 [place] [address] [place] [address] 30753- 9046 Jan, Traumatic brain injury, without LOC, initial encounter S06.9X0A ; Intractable chronic migraine without aura and without status migrainosus G43.719 ; Anxiety F41.9 and Recurrent major depressive disorder, in partial remission F33.41 [place] [address] [place] [address] 16553- 1807 Jan, Intractable chronic migraine without aura and without status migrainosus G43.719 [place] [address] [place] [address] 60089- 3397 Jan, History of traumatic brain injury Z87.820 ; Anxiety F41.9 and Recurrent major depressive disorder, in partial remission F33.41 [place] [address] [place] [address] 96100- 1617 13 Jan, 2017 [facility] [address] [place] [id number] 07 Jan, 2017 History of traumatic brain injury Z87.820 and Obsessive-compulsive disorder, unspecified type F42.9 [place] [id number] [address] 06 Jan, 2017 Traumatic brain injury, without LOC, initial encounter S06.9X0A ; Intractable chronic migraine without aura and without status migrainosus G43.719 ; Anxiety F41.9 and Recurrent major depressive disorder, in partial remission F33.41 [facility] [address] [address] 05 Jan, 2017 History of traumatic brain injury Z87.820 ; Obsessive- compulsive disorder, unspecified type F42.9 ; Anxiety F41.9 and Recurrent major depressive disorder, in partial remission F33.41 [facility] [id number] [place] [id number] 31 Dec, 2016 [facility] [id number] [place] [address] [id number] Dec, Intractable chronic migraine without aura and without status migrainosus G43.719 [facility] [address] [place] [id number] Dec, Type 2 diabetes mellitus with unspecified complications E11.8 and Essential hypertension I10 [facility] [address] [place] [address] 21962- 4615 18 Dec, 2016 Traumatic brain injury, without LOC, initial encounter S06.9X0A [facility] [id number] [address] 1693 16 Dec, 2016 Traumatic brain injury, without LOC, initial encounter S06.9X0A ; Intractable chronic migraine without aura and without status migrainosus G43.719 ; Anxiety F41.9 and Recurrent major depressive disorder, in partial remission F33.41 [facility] [address] [address] 9851 15 Dec, 2016 [facility] [address] [place] [address] 93312- 7755 11 Dec, 2016 History of traumatic brain injury Z87.820 ; Obsessive- compulsive disorder, unspecified type F42.9 ; Anxiety F41.9 and Recurrent major depressive disorder, in partial remission F33.41 [facility] [id number] [address] Dec, Traumatic brain injury, without LOC, initial encounter S06.9X0A [facility] [id number] [address] 8101 Dec, Anxiety F41.9 and Recurrent major depressive disorder, in partial remission F33.41 [facility] [id number] [place] [address] 47726- 4301 Dec, Traumatic brain injury, without LOC, initial encounter S06.9X0A ; Intractable chronic migraine without aura and without status migrainosus G43.719 ; Anxiety F41.9 and Recurrent major depressive disorder, in partial remission F33.41 [facility] [address] [address] Dec, [facility] [id number] [place] [address] [id number] Nov, Intractable chronic migraine without aura and without status migrainosus G43.719 [facility] [address] [place] [id number] Nov, Obsessive-compulsive disorder, unspecified type F42.9 ; Anxiety F41.9 and Intractable chronic migraine without aura and without status migrainosus G43.719 [facility] [id number] [address] Nov, Traumatic brain injury, without LOC, initial encounter S06.9X0A ; Intractable chronic migraine without aura and without status migrainosus G43.719 ; Anxiety F41.9 and Recurrent major depressive disorder, in partial remission F33.41 [facility] [id number] [place] [address] [id number] Nov, [facility] [id number] [address]1 Nov, Anxiety F41.9 and Recurrent major depressive disorder, in partial remission F33.41 [facility] [id number] [address] 69[address] Nov, [facility] [id number] [place] [address] [id number] Nov, [facility] [address] [address]94 Oct, [facility] [address] [place] [address] 88274- 8800 Oct, Anxiety F41.9 and Recurrent major depressive disorder, in partial remission F33.41 [facility] [address] [address] 2676 Oct, [facility] [address] [place] [address] 06168- 9789 September, Anxiety F41.9 and Recurrent major depressive disorder, in partial remission F33.41 [facility] [address] [address] 9852 September, Traumatic brain injury, without LOC, initial encounter S06.9X0A ; Intractable chronic migraine without aura and without status migrainosus G43.719 ; Anxiety F41.9 and Recurrent major depressive disorder, in partial remission F33.41 [facility] [address] [address] 68[address] September, [facility] [address] [address]- 6642 September, Anxiety F41.9 [facility] [id number] [address]- 1189 September, [facility] [id number] [place] [address] [id number] September, Type 2 diabetes mellitus with unspecified complications E11.8 [facility] [id number] [place] [id number] September, Type 2 diabetes mellitus with unspecified complications E11.8 [facility] [address] [place] [id number] September, Essential hypertension I10 and History of traumatic brain injury Z87.820 [facility] [id number] [place] [address] 40495- 1048 Aug, [facility] [address] [place] [id number] Aug, Type 2 diabetes mellitus with unspecified complications E11.8 and Benign prostatic hyperplasia with lower urinary tract symptoms, unspecified morphology N40.1 [facility] [address] [id number] Aug, [facility] [id number] [place] [address] 60174- 9727 Aug, [place] [id number] [place] [address] 47879- 9482 Jul, Traumatic brain injury, without LOC, initial encounter S06.9X0A ; Intractable chronic migraine without aura and without status migrainosus G43.719 ; Anxiety F41.9 and Recurrent major depressive disorder, in partial remission F33.41 [facility] [id number] [place] [address] 50262- 4109 Jul, [place] [id number] [place] [address] 40426- 7465 Jul, [facility] [id number] [place] [address] [id number] Jun, [facility] [id number] [place] [address] 14828- 6741 Jun, [facility] [id number] [place] [address] 68392- 4199 Jun, [facility] [address] [place] [id number] Jun, Encounter to establish care Z76.89 [facility] [id number] [place] [address] 23356- 7982 Jun, [facility] [address] [place] [address]- 2756 Jun, [facility] [address] [id number] [address] 2546 Jun, [facility] [address] [id number] [address]- [address] Jun, [facility] [place] [address] [id number] [place] [id number] May, Dental examination Z01.20 [facility] [place] [address] [id number] [place] [id number] Dec, Dental examination Z01.20 [facility] [place] [address] [id number] [place] [id number] September, Dental examination Z01.20 [facility] [place] [address] [id number] [place] [id number] Dec, Dental examination V72.2 [facility] [address] [id number] [address]- 0086 Aug, [facility] [address] [facility] [id number] [address]- 2602 Aug, [facility] [address] [facility] [id number] [address]- 5416 Apr, [facility] [address] [facility] [id number] [address]- 6666 Nov, [facility] [address] [facility] [id number] [address]- 7306 Nov, [facility] [address] [facility] [id number] Nov, [facility] [address] [facility] [id number] [address] 2846 Nov, [facility] [address] [facility] [id number] [address]- 2132 Oct, [facility] [address] [facility] [id number] [address]- 1052 May, [facility] [address] [facility] [id number] [place] [address]- 6281 May, IMMUNIZATIONS No Known Immunizations SOCIAL HISTORY Never Assessed REASON FOR VISIT Start Metformin PLAN OF CARE VITAL SIGNS MEDICATIONS Medication Instructions Dosage Frequency Start Date End Date Duration Status MetFORMIN HCl ER 500 mg Orally twice a day then in 4 days increase to 1 tab in AM and 2 in PM and in 4 days increase to 2 tabs bid 1 tablet May, Active RESULTS No Results PROCEDURES No Known procedures INSTRUCTIONS MEDICATIONS ADMINISTERED No Known Medications MEDICAL (GENERAL) HISTORY Type Description Date Medical History History of traumatic brain injury Subdural hematoma from falling out of bed 2012 Medical History Type 2 diabetes mellitus with unspecified complications Medical History detention current use of insulin Medical 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 elbow Hospitalization History left ankle Hospitalization History [facility]
--- OUTSIDE RECORDS SUMMARY | 2018-07-02 12:04 | XMS REPORT ---
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 Active 262796478 Problem Anxiety F41.9 Active 66442511 Problem Benign prostatic hyperplasia with lower urinary tract symptoms, unspecified morphology N40.1 Active 201586076 Problem Persistent migraine aura without cerebral infarction and without status migrainosus, not intractable G43.509 Active 559384822 Problem Intractable chronic migraine without aura and without status migrainosus G43.719 Active 203461289 Problem Type 2 diabetes mellitus with unspecified complications E11.8 Active 98521377 Problem 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 Active 72947975 Problem Chronic pain due to trauma G89.21 Active 472822850 Problem Recurrent major depressive disorder, in partial remission F33.41 Active 13801233 Problem Traumatic brain injury, without LOC, initial encounter S06.9X0A Active 498509698 Problem Rad (reactive airway disease), mild intermittent, uncomplicated J45.20 Active 803501765098 Problem Obsessive-compulsive disorder, unspecified type F42.9 Active 743196244 Problem History of traumatic brain injury Z87.820 Active 22782375815810 Problem Hyperlipidemia, unspecified hyperlipidemia type E78.5 Active 69250504 Problem Anemia, unspecified type D64.9 Active 121951321 Problem History of gout Z87.39 Active 258720201 Problem Glaucoma, unspecified glaucoma, unspecified laterality H40.9 Active 11781200 Problem Herpes B00.9 Active 50168414 Problem Weak urinary stream R39.12 Active 04108144 Problem Gastroesophageal reflux disease without esophagitis K21.9 Active 842343972 ALLERGIES Substance Reaction Event Type Date Status Penicillin V Potassium Unknown Drug Allergy May, Active SOCIAL HISTORY No smoking Hx information available PLAN OF CARE Activity Details Follow Up restorative and smooth incisal edges #24,25 - occlusal adjustment Reason: VITAL SIGNS Blood pressure systolic 138 mmHg 2016-06-05 Blood pressure diastolic 72 mmHg 2016-06-05 MEDICATIONS Medication Instructions Dosage Frequency Start Date End Date Duration Status Latuda Active Mylanta Active alfuzosin by oral route May, Active Vitamin D Active Coricidin HBP Cold/Flu Active Trazodone HCl Active Travatan Z by ophthalmic route May, Active Milk of Magnesia Active MiraLax Active Sonata Active Clonazepam by oral route May, Active [place] 3 1 G Orally Once a day 4 caps 24h Active verapamil by oral route May, Active Levemir by subcutaneous route May, Active Humalog by subcutaneous route May, Active Allopurinol by oral route May, Active Amitiza Active Morphine Sulfate 30 MG Orally BID 12h Active Effexor XR Active Lubricant Drops Active fluticasone by inhalation route May, Active fluvoxamine by oral route May, Active RESULTS No Results PROCEDURES Procedure Date Ordered Related Diagnosis Body Site Periodontal maint procedures Jun 05, 2016 Billing Notes on claim Jun 05, 2016 IMMUNIZATIONS No Known Immunizations
--- OUTSIDE RECORDS SUMMARY | 2018-07-02 12:04 | XMS REPORT ---
Author Author NICK FONSECA Organization [facility] Address [address] [place] [address] Care Team Providers Care Peoplesoft Name Role Phone NICK FONSECA Unavailable PROBLEMS Type Condition ICD9-CM Code SWW36-TE Code Onset Dates Condition Status SNOMED Code Problem Essential hypertension I10 Active 82958355 Problem detention current use of insulin Z79.4 Active 797833480 Problem Anxiety F41.9 Active 78594206 Problem Benign prostatic hyperplasia with lower urinary tract symptoms, unspecified morphology N40.1 Active 220710873 Problem Persistent migraine aura without cerebral infarction and without status migrainosus, not intractable G43.509 Active 951211571 Problem Intractable chronic migraine without aura and without status migrainosus G43.719 Active 162437262 Problem Type 2 diabetes mellitus with unspecified complications E11.8 Active 02931648 Problem 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 Active 23246606 Problem Chronic pain due to trauma G89.21 Active 628519679 Problem Recurrent major depressive disorder, in partial remission F33.41 Active 10068167 Problem Traumatic brain injury, without LOC, initial encounter S06.9X0A Active 548565568 Problem Rad (reactive airway disease), mild intermittent, uncomplicated J45.20 Active 742018682545 Problem Obsessive-compulsive disorder, unspecified type F42.9 Active 558299035 Problem History of traumatic brain injury Z87.820 Active 71819387713104 Problem Hyperlipidemia, unspecified hyperlipidemia type E78.5 Active 43789125 Problem Anemia, unspecified type D64.9 Active 325711113 Problem History of gout Z87.39 Active 835651183 Problem Glaucoma, unspecified glaucoma, unspecified laterality H40.9 Active 33918373 Problem Herpes B00.9 Active 98238894 Problem Weak urinary stream R39.12 Active 48564274 Problem Gastroesophageal reflux disease without esophagitis K21.9 Active 756642388 ALLERGIES No Information ENCOUNTERS Encounter Location Date Diagnosis [facility] [id number] [address] Oct, [facility] [address], [place] [address] September, Anxiety F41.9 ; Traumatic brain injury, without LOC, initial encounter S06.9X0A ; Intractable chronic migraine without aura and without status migrainosus G43.719 and Recurrent major depressive disorder, in partial remission F33.41 [place] [address] [place] [id number] September, Weight gain R63.5 and Type 2 diabetes mellitus with unspecified complications E11.8 [facility] [id number], [place] [address] September, [facility] [address], [place] [address] Aug, [facility] [id number] [id number] Aug, [facility] [id number], [place] [address] Aug, [facility] [id number], [place] [address] Jul, Intractable chronic migraine without aura and without status migrainosus G43.719 [facility] [id number], [place] [address] Jul, Intractable chronic migraine without aura and without status migrainosus G43.719 [facility] [address] [place] [id number] Jul, History of traumatic brain injury Z87.820 ; Recurrent major depressive disorder , in partial remission F33.41 and Type 2 diabetes mellitus with unspecified complications E11.8 [facility] [id number] [id number] Jul, [facility] [id number] [id number] Jul, Intractable chronic migraine without aura and without status migrainosus G43.719 [facility] [id number] [address] Jun, Anxiety F41.9 ; Traumatic brain injury, without LOC, initial encounter S06.9X0A ; Intractable chronic migraine without aura and without status migrainosus G43.719 and Recurrent major depressive disorder, in partial remission F33.41 [facility] [id number] [place] [id number] 13 Jun, 2017 [facility] [id number] [address] Jun, [facility] [id number] [place] [id number] Jun, Intractable chronic migraine without aura and without status migrainosus G43.719 [facility] [address] [place] [address] May, [facility] [address] [place] [id number] May, Recurrent major depressive disorder, in partial remission F33.41 ; Traumatic brain injury, without LOC, initial encounter S06.9X0A and Anxiety F41.9 [facility] [address], [place] [address] May, [facility] [id number] [id number] May, [facility] [address] [place] [id number] May, Intractable chronic migraine without aura and without status migrainosus G43.719 [facility] [id number] [place] [id number] Apr, Anxiety F41.9 ; Traumatic brain injury, without LOC, initial encounter S06.9X0A ; Intractable chronic migraine without aura and without status migrainosus G43.719 and Recurrent major depressive disorder, in partial remission F33.41 [facility] [id number], [place] [address] Apr, [facility] [id number] [place] [id number] Apr, Intractable chronic migraine without aura and without status migrainosus G43.719 [facility] [address], [place] [address] Apr, [facility] [address] [place] [address] Apr, [facility] [id number] [place] [address] [id number] Mar, [facility] [address] [place] [address] Mar, [facility] [id number] [place] [address] [id number] Mar, [facility] [address] [place] [id number] Mar, Intractable chronic migraine without aura and without status migrainosus G43.719 [facility] [address] [place] [id number] 09 Mar, 2017 Encounter for examination for admission to [facility] Z02.2 ; History of traumatic brain injury Z87.820 ; Recurrent major depressive disorder, in partial remission F33.41 ; Anxiety F41.9 ; Obsessive-compulsive disorder, unspecified type F42.9 ; Essential hypertension I10 and Type 2 diabetes mellitus with unspecified complications E11.8 [facility] [id number] [id number] Feb, [facility] [id number], [place] [address] Feb, Obsessive-compulsive disorder, unspecified type F42.9 ; Anxiety F41.9 and Recurrent major depressive disorder, in partial remission F33.41 [facility] [id number], [place] [address] 27 Sep, 2017 Traumatic brain injury, without LOC, initial encounter S06.9X0A ; Intractable chronic migraine without aura and without status migrainosus G43.719 ; Anxiety F41.9 and Recurrent major depressive disorder, in partial remission F33.41 [facility] [id number], [place] [address] 20 Jan, 2017 Intractable chronic migraine without aura and without status migrainosus G43.719 [facility] [address], [place] [address] 19 Jan, 2017 History of traumatic brain injury Z87.820 ; Anxiety F41.9 and Recurrent major depressive disorder, in partial remission F33.41 [facility] [address], [place] [address] 13 Jan, 2017 [facility] [address] [place] [id number] 07 Jan, 2017 History of traumatic brain injury Z87.820 and Obsessive-compulsive disorder, unspecified type F42.9 [facility] [id number], [place] [address] 06 Jan, 2017 Traumatic brain injury, without LOC, initial encounter S06.9X0A ; Intractable chronic migraine without aura and without status migrainosus G43.719 ; Anxiety F41.9 and Recurrent major depressive disorder, in partial remission F33.41 [facility] [id number], [place] [address] 05 Jan, 2017 History of traumatic brain injury Z87.820 ; Obsessive- compulsive disorder, unspecified type F42.9 ; Anxiety F41.9 and Recurrent major depressive disorder, in partial remission F33.41 [facility] [address] [id number] [id number] Dec, [facility] [id number] [id number] Dec, Intractable chronic migraine without aura and without status migrainosus G43.719 [facility] [address] [id number] Dec, Type 2 diabetes mellitus with unspecified complications E11.8 and Essential hypertension I10 [facility] [address] [place] [address] Dec, Traumatic brain injury, without LOC, initial encounter S06.9X0A [facility] [address] [place] [address] 16 Dec, 2016 Traumatic brain injury, without LOC, initial encounter S06.9X0A ; Intractable chronic migraine without aura and without status migrainosus G43.719 ; Anxiety F41.9 and Recurrent major depressive disorder, in partial remission F33.41 [place] [id number] [place] [address] Dec, [facility] [id number] [place] [address] Dec, History of traumatic brain injury Z87.820 ; Obsessive- compulsive disorder, unspecified type F42.9 ; Anxiety F41.9 and Recurrent major depressive disorder, in partial remission F33.41 [facility] [address] [place] [address] 09 Dec, 2016 Traumatic brain injury, without LOC, initial encounter S06.9X0A [facility] [address] [place] [address] Dec, Anxiety F41.9 and Recurrent major depressive disorder, in partial remission F33.41 [facility] [address] [place] [address]- [address] 02 Dec, 2016 Traumatic brain injury, without LOC, initial encounter S06.9X0A ; Intractable chronic migraine without aura and without status migrainosus G43.719 ; Anxiety F41.9 and Recurrent major depressive disorder, in partial remission F33.41 [facility] [address] [place] [address] Dec, [facility] [id number] [place] [address] [id number] Nov, Intractable chronic migraine without aura and without status migrainosus G43.719 [facility] [address] [place] [id number] Nov, Obsessive-compulsive disorder, unspecified type F42.9 ; Anxiety F41.9 and Intractable chronic migraine without aura and without status migrainosus G43.719 [facility] [address] [facility] [id number] [address] Nov, Traumatic brain injury, without LOC, initial encounter S06.9X0A ; Intractable chronic migraine without aura and without status migrainosus G43.719 ; Anxiety F41.9 and Recurrent major depressive disorder, in partial remission F33.41 [facility] [address] [id number] [id number] Nov, [facility] [address] [facility] [id number], [place] [address] Nov, Anxiety F41.9 and Recurrent major depressive disorder, in partial remission F33.41 [facility] [address] [facility] [id number], [place] [address] Nov, [facility] [id number] [place] [id number] Nov, [facility] [id number], [place] [address] Oct, [facility] [id number] [address] Oct, Anxiety F41.9 and Recurrent major depressive disorder, in partial remission F33.41 [facility] [address] [facility] [id number] [address] Oct, [facility] [address] [facility] [id number] [address] September, Anxiety F41.9 and Recurrent major depressive disorder, in partial remission F33.41 [facility] [address] [facility] [id number], [place] [address] September, Traumatic brain injury, without LOC, initial encounter S06.9X0A ; Intractable chronic migraine without aura and without status migrainosus G43.719 ; Anxiety F41.9 and Recurrent major depressive disorder, in partial remission F33.41 [facility] [address], [place] [address] September, [facility] [address] [place] [address]58- 5627 September, Anxiety F41.9 [facility] [id number] [place] [address] 00207- 4[address] September, [facility] [id number] [place] [address] [id number] September, Type 2 diabetes mellitus with unspecified complications E11.8 [facility] [id number] [place] [address] [id number] September, Type 2 diabetes mellitus with unspecified complications E11.8 [facility] [address] [place] [id number] September, Essential hypertension I10 and History of traumatic brain injury Z87.820 [facility] [address] [place] [address]80- 3486 Aug, [facility] [address] [place] [phone] Aug, Type 2 diabetes mellitus with unspecified complications E11.8 and Benign prostatic hyperplasia with lower urinary tract symptoms, unspecified morphology N40.1 [facility] [id number] [id number] Aug, [facility] [address], [place] [address] Aug, [facility] [address] [place] [address]016- 7333 Jul, Traumatic brain injury, without LOC, initial encounter S06.9X0A ; Intractable chronic migraine without aura and without status migrainosus G43.719 ; Anxiety F41.9 and Recurrent major depressive disorder, in partial remission F33.41 [facility] [id number], [place] [address] Jul, [facility] [address], [place] [address] Jul, [place] [facility] [id number] [id number] Jun, [facility] [address], [place] [address] Jun, [facility] [id number], [place] [address] Jun, [facility] and [address] [id number] Jun, Encounter to establish care Z76.89 [facility] [address], [place] [address] Jun, [facility] [address], [place] [address] Jun, [facility] [id number], [place] [address] Jun, [facility] [id number], [place] [address] Jun, [facility] [address] [id number] [place] [id number] May, Dental examination Z01.20 [facility] [address] [id number] [place] [id number] Dec, Dental examination Z01.20 [facility] [address] [id number] [place] [id number] September, Dental examination Z01.20 [facility] [address] [id number] [place] [id number] Dec, Dental examination V72.2 [facility] [id number] [address] Aug, [facility] [id number], [place] [address] Aug, [facility] [id number], [place] [address] 269[address] Apr, [facility] [id number], [place] [address] Nov, [facility] [address], [place] [address] Nov, [facility] [id number], [place] [address] Nov, [facility] [address], [place] [address]- 4872 Nov, [facility] [address], [place] [address] Oct, [facility] [id number], [place] [address] May, [facility] [id number], [place] [address] May, IMMUNIZATIONS No Known Immunizations SOCIAL HISTORY Never Assessed REASON FOR VISIT c/o interrupted sleep all nite long PLAN OF CARE VITAL SIGNS MEDICATIONS Medication Instructions Dosage Frequency Start Date End Date Duration Status Melatonin 3 MG Orally Once a day 3 tablets at bedtime 24h Active RESULTS No Results PROCEDURES No Known procedures INSTRUCTIONS MEDICATIONS ADMINISTERED No Known Medications MEDICAL (GENERAL) HISTORY Type Description Date Medical History History of traumatic brain injury Subdural hematoma from falling out of bed 2012 Medical History Type 2 diabetes mellitus with unspecified complications 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
[2018-07-02 12:05] VITALS: BP 132/63
--- OUTSIDE RECORDS SUMMARY | 2018-07-02 12:05 | XMS REPORT ---
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 Active 946532801 Problem Anxiety F41.9 Active 79190745 Problem Benign prostatic hyperplasia with lower urinary tract symptoms, unspecified morphology N40.1 Active 239099311 Problem Persistent migraine aura without cerebral infarction and without status migrainosus, not intractable G43.509 Active 494634984 Problem Intractable chronic migraine without aura and without status migrainosus G43.719 Active 808778561 Problem Type 2 diabetes mellitus with unspecified complications E11.8 Active 93763909 Problem 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 Active 75797593 Problem Chronic pain due to trauma G89.21 Active 575112268 Problem Recurrent major depressive disorder, in partial remission F33.41 Active 97587110 Problem Traumatic brain injury, without LOC, initial encounter S06.9X0A Active 578288398 Problem Rad (reactive airway disease), mild intermittent, uncomplicated J45.20 Active 873651925611 Problem Obsessive-compulsive disorder, unspecified type F42.9 Active 871813487 Problem History of traumatic brain injury Z87.820 Active 01181201620317 Problem Hyperlipidemia, unspecified hyperlipidemia type E78.5 Active 83393987 Problem Anemia, unspecified type D64.9 Active 318700155 Problem History of gout Z87.39 Active 133192883 Problem Glaucoma, unspecified glaucoma, unspecified laterality H40.9 Active 05252137 Problem Herpes B00.9 Active 47341019 Problem Weak urinary stream R39.12 Active 42646172 Problem Gastroesophageal reflux disease without esophagitis K21.9 Active 357238575 ALLERGIES No Information SOCIAL HISTORY Never Assessed PLAN OF CARE VITAL SIGNS MEDICATIONS Medication Instructions Dosage Frequency Start Date End Date Duration Status Morphine Sulfate ER 30 MG Orally every 12 hrs 1 tablet 12h 10 Sep, 2016 28 days Active RESULTS No Results PROCEDURES No Known procedures IMMUNIZATIONS No Known Immunizations MEDICAL (GENERAL) HISTORY Type Description Date Medical History History of traumatic brain injury Subdural hematoma from falling out of bed 2012 Medical History Type 2 diabetes mellitus with unspecified complications 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
--- OUTSIDE RECORDS SUMMARY | 2018-07-02 12:05 | XMS REPORT ---
Author Author KILO ZENG [facility] Address [address] [place] [address] Care Team Providers Care Bus Cleaner Name Role Phone KILO ZENG Unavailable PROBLEMS Type Condition ICD9-CM Code FXN26-XD Code Onset Dates Condition Status SNOMED Code Problem Essential hypertension I10 Active 67587181 Problem longterm current use of insulin Z79.4 Active 330412408 Problem Anxiety F41.9 Active 23037441 Problem Benign prostatic hyperplasia with lower urinary tract symptoms, unspecified morphology N40.1 Active 825545864 Problem Persistent migraine aura without cerebral infarction and without status migrainosus, not intractable G43.509 Active 755264722 Problem Intractable chronic migraine without aura and without status migrainosus G43.719 Active 158821239 Problem Type 2 diabetes mellitus with unspecified complications E11.8 Active 76269847 Problem 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 Active 64132955 Problem Chronic pain due to trauma G89.21 Active 140816694 Problem Recurrent major depressive disorder, in partial remission F33.41 Active 12687425 Problem Traumatic brain injury, without LOC, initial encounter S06.9X0A Active 545717044 Problem Rad (reactive airway disease), mild intermittent, uncomplicated J45.20 Active 886437525938 Problem Obsessive-compulsive disorder, unspecified type F42.9 Active 036234323 Problem History of traumatic brain injury Z87.820 Active 15936852844857 Problem Hyperlipidemia, unspecified hyperlipidemia type E78.5 Active 50239692 Problem Anemia, unspecified type D64.9 Active 773438335 Problem History of gout Z87.39 Active 281656188 Problem Glaucoma, unspecified glaucoma, unspecified laterality H40.9 Active 74771963 Problem Herpes B00.9 Active 80008668 Problem Weak urinary stream R39.12 Active 57437371 Problem Gastroesophageal reflux disease without esophagitis K21.9 Active 593559598 ALLERGIES No Information SOCIAL HISTORY Never Assessed PLAN OF CARE VITAL SIGNS MEDICATIONS Medication Instructions Dosage Frequency Start Date End Date Duration Status Tamsulosin HCl 0.4 MG Orally Once a day 1 capsule 24h 14 Jun, 2016 30 day(s) Active RESULTS No Results PROCEDURES No Known procedures IMMUNIZATIONS No Known Immunizations MEDICAL (GENERAL) HISTORY Type Description Date Medical History History of traumatic brain injury Subdural hematoma from falling out of bed 2012 Medical History Type 2 diabetes mellitus with unspecified complications Medical History longterm current use of insulin Medical 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
--- OUTSIDE RECORDS SUMMARY | 2018-07-02 12:05 | XMS REPORT ---
Author Author NICK FONSECA Organization [facility] Address [address] [place] [address] Care Team Providers Care Bottom Finisher Name Role Phone NICK FONSECA Unavailable PROBLEMS Type Condition ICD9-CM Code NTB80-AU Code Onset Dates Condition Status SNOMED Code Problem Essential hypertension I10 Active 49490427 Problem longterm current use of insulin Z79.4 Active 038981823 Problem Anxiety F41.9 Active 47571460 Problem Benign prostatic hyperplasia with lower urinary tract symptoms, unspecified morphology N40.1 Active 158708971 Problem Persistent migraine aura without cerebral infarction and without status migrainosus, not intractable G43.509 Active 896085604 Problem Intractable chronic migraine without aura and without status migrainosus G43.719 Active 830644345 Problem Type 2 diabetes mellitus with unspecified complications E11.8 Active 27854509 Problem 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 Active 47131964 Problem Chronic pain due to trauma G89.21 Active 848527993 Problem Recurrent major depressive disorder, in partial remission F33.41 Active 62715252 Problem Traumatic brain injury, without LOC, initial encounter S06.9X0A Active 403966927 Problem Rad (reactive airway disease), mild intermittent, uncomplicated J45.20 Active 116695859462 Problem Obsessive-compulsive disorder, unspecified type F42.9 Active 111364621 Problem History of traumatic brain injury Z87.820 Active 31897827564885 Problem Hyperlipidemia, unspecified hyperlipidemia type E78.5 Active 09085418 Problem Anemia, unspecified type D64.9 Active 136400285 Problem History of gout Z87.39 Active 256423669 Problem Glaucoma, unspecified glaucoma, unspecified laterality H40.9 Active 58681609 Problem Herpes B00.9 Active 14363446 Problem Weak urinary stream R39.12 Active 96846476 Problem Gastroesophageal reflux disease without esophagitis K21.9 Active 002943372 ALLERGIES No Information ENCOUNTERS Encounter Location Date Diagnosis [facility] [id number], [place] [address] September, [facility] [address], [place] [address] Jul, Intractable chronic migraine without aura and without status migrainosus G43.719 [facility] [id number], [place] [address] Jul, Intractable chronic migraine without aura and without status migrainosus G43.719 [facility] [address] [place] [id number] Jul, History of traumatic brain injury Z87.820 ; Recurrent major depressive disorder , in partial remission F33.41 and Type 2 diabetes mellitus with unspecified complications E11.8 [facility] [id number] [id number] Jul, [facility] [id number] [place] [id number] Jul, Intractable chronic migraine without aura and without status migrainosus G43.719 [facility] [id number], [place] [address] Jun, Anxiety F41.9 ; Traumatic brain injury, without LOC, initial encounter S06.9X0A ; Intractable chronic migraine without aura and without status migrainosus G43.719 and Recurrent major depressive disorder, in partial remission F33.41 [facility] [id number] [id number] Jun, [facility] [id number], [place] [address] Jun, [facility] [id number] [place] [id number] Jun, Intractable chronic migraine without aura and without status migrainosus G43.719 [facility] [id number], [place] [address] May, [facility] [address] [place] [id number] May, Recurrent major depressive disorder, in partial remission F33.41 ; Traumatic brain injury, without LOC, initial encounter S06.9X0A and Anxiety F41.9 [facility] [id number], [place] [address] May, [facility] [id number] [place] [id number] May, [facility] [id number] [place] [address] May, Intractable chronic migraine without aura and without status migrainosus G43.719 [facility] [id number] [place] [address] Apr, Anxiety F41.9 ; Traumatic brain injury, without LOC, initial encounter S06.9X0A ; Intractable chronic migraine without aura and without status migrainosus G43.719 and Recurrent major depressive disorder, in partial remission F33.41 [facility] [id number], [place] [address] Apr, [facility] [id number] [place] [id number] Apr, Intractable chronic migraine without aura and without status migrainosus G43.719 [facility] [id number], [place] [address] Apr, [facility] [id number], [place] [address] Apr, [facility] [id number] [place] [address] [id number] Mar, [facility] [id number] [address] Mar, [facility] [id number] [place] [id number] Mar, [facility] [id number] [place] [address] Mar, Intractable chronic migraine without aura and without status migrainosus G43.719 [facility] [address] [place] [id number] Mar, Encounter for examination for admission to intermediate Z02.2 ; History of traumatic brain injury Z87.820 ; Recurrent major depressive disorder, in partial remission F33.41 ; Anxiety F41.9 ; Obsessive-compulsive disorder, unspecified type F42.9 ; Essential hypertension I10 and Type 2 diabetes mellitus with unspecified complications E11.8 [facility] [id number] [place] [id number] Feb, [place] [address] [place] [address] Feb, Obsessive-compulsive disorder, unspecified type F42.9 ; Anxiety F41.9 and Recurrent major depressive disorder, in partial remission F33.41 [place] [address], [place] [address] Jan, Traumatic brain injury, without LOC, initial encounter S06.9X0A ; Intractable chronic migraine without aura and without status migrainosus G43.719 ; Anxiety F41.9 and Recurrent major depressive disorder, in partial remission F33.41 [place] [id number], [place] [address] Jan, Intractable chronic migraine without aura and without status migrainosus G43.719 [facility] [id number] [place] [address] Jan, History of traumatic brain injury Z87.820 ; Anxiety F41.9 and Recurrent major depressive disorder, in partial remission F33.41 [place] [address], [place] [address] 13 Jan, 2017 [facility] [address] [place] [id number] 07 Jan, 2017 History of traumatic brain injury Z87.820 and Obsessive-compulsive disorder, unspecified type F42.9 [place] [address], [place] [address] 06 Jan, 2017 Traumatic brain injury, without LOC, initial encounter S06.9X0A ; Intractable chronic migraine without aura and without status migrainosus G43.719 ; Anxiety F41.9 and Recurrent major depressive disorder, in partial remission F33.41 [facility] [address], [place] [address] 05 Jan, 2017 History of traumatic brain injury Z87.820 ; Obsessive- compulsive disorder, unspecified type F42.9 ; Anxiety F41.9 and Recurrent major depressive disorder, in partial remission F33.41 [facility] [id number] [place] [address] [id number] Dec, [facility] [id number] [place] [address] [id number] Dec, Intractable chronic migraine without aura and without status migrainosus G43.719 [facility] [address] [place] [id number] Dec, Type 2 diabetes mellitus with unspecified complications E11.8 and Essential hypertension I10 [facility] [address], [place] [address] 18 Dec, 2016 Traumatic brain injury, without LOC, initial encounter S06.9X0A [facility] [id number], [place] [address] 16 Dec, 2016 Traumatic brain injury, without LOC, initial encounter S06.9X0A ; Intractable chronic migraine without aura and without status migrainosus G43.719 ; Anxiety F41.9 and Recurrent major depressive disorder, in partial remission F33.41 [facility] [address], [place] [address] 15 Dec, 2016 [facility] [address] [place] [address] 11 Dec, 2016 History of traumatic brain injury Z87.820 ; Obsessive- compulsive disorder, unspecified type F42.9 ; Anxiety F41.9 and Recurrent major depressive disorder, in partial remission F33.41 [facility] [id number], [place] [address] Dec, Traumatic brain injury, without LOC, initial encounter S06.9X0A [facility] [id number], [place] [address] Dec, Anxiety F41.9 and Recurrent major depressive disorder, in partial remission F33.41 [facility] [address] [place] [address] Dec, Traumatic brain injury, without LOC, initial encounter S06.9X0A ; Intractable chronic migraine without aura and without status migrainosus G43.719 ; Anxiety F41.9 and Recurrent major depressive disorder, in partial remission F33.41 [facility] [address], [place] [address] Dec, [facility] [id number] [place] [address] [id number] Nov, Intractable chronic migraine without aura and without status migrainosus G43.719 [facility] [address] [place] [id number] Nov, Obsessive-compulsive disorder, unspecified type F42.9 ; Anxiety F41.9 and Intractable chronic migraine without aura and without status migrainosus G43.719 [facility] [id number], [place] [address] Nov, Traumatic brain injury, without LOC, initial encounter S06.9X0A ; Intractable chronic migraine without aura and without status migrainosus G43.719 ; Anxiety F41.9 and Recurrent major depressive disorder, in partial remission F33.41 [facility] [id number] [place] [address] [id number] Nov, [facility] [id number], [place] [address] Nov, Anxiety F41.9 and Recurrent major depressive disorder, in partial remission F33.41 [facility] [address], [place] [address] Nov, [facility] [id number] [id number] Nov, [facility] [address], [place] [address] Oct, [facility] [address] [place] [address] Oct, Anxiety F41.9 and Recurrent major depressive disorder, in partial remission F33.41 [facility] [address], [place] [address] Oct, [facility] [address] [place] [address] September, Anxiety F41.9 and Recurrent major depressive disorder, in partial remission F33.41 [facility] [address], [place] [address] September, Traumatic brain injury, without LOC, initial encounter S06.9X0A ; Intractable chronic migraine without aura and without status migrainosus G43.719 ; Anxiety F41.9 and Recurrent major depressive disorder, in partial remission F33.41 [facility] [address], [place] [address] September, [facility] [address], [place] [address] September, Anxiety F41.9 [facility] [id number], [place] [address] September, [facility] [id number] [id number] September, Type 2 diabetes mellitus with unspecified complications E11.8 [facility] [id number] [id number] September, Type 2 diabetes mellitus with unspecified complications E11.8 [facility] [address] [id number] September, Essential hypertension I10 and History of traumatic brain injury Z87.820 [facility] [id number] [place] [address] Aug, [facility] [address] [place] [id number] Aug, Type 2 diabetes mellitus with unspecified complications E11.8 and Benign prostatic hyperplasia with lower urinary tract symptoms, unspecified morphology N40.1 [facility] [id number] [place] [address] [id number] Aug, [facility] [id number] [place] [address] Aug, [facility] [id number] [place] [address] 37[address]234- [address] Jul, Traumatic brain injury, without LOC, initial encounter S06.9X0A ; Intractable chronic migraine without aura and without status migrainosus G43.719 ; Anxiety F41.9 and Recurrent major depressive disorder, in partial remission F33.41 [facility] [id number] [place] [address] Jul, [facility] [id number] [place] [address]- [address] Jul, [facility] [id number] [place] [address] [id number] Jun, [facility] [id number] [place] [address] 8[address]- [address] Jun, [facility] [address] [place] [address]- [address] Jun, [facility] [address] [place] [id number] Jun, Encounter to establish care Z76.89 [facility] [id number] [place] [id number] Jun, [facility] [id number] [place] [address]- 7006 Jun, [facility] [address] [id number] [place] [address] Jun, [facility] [address] [facility] [id number] [address] Jun, [facility] [place] [address] [id number] [place] [id number] May, Dental examination Z01.20 [facility] [place] [address] [id number] [place] [id number] Dec, Dental examination Z01.20 [facility] [place] [address] [id number] [place] [id number] September, Dental examination Z01.20 [facility] [place] [address] [id number] [place] [id number] Dec, Dental examination V72.2 [facility] [address] [facility] [id number], [place] [address] Aug, [facility] [id number] [address] Aug, [facility] [id number] [address] Apr, [facility] [place] [facility] [id number], [place] [address] Nov, [facility] [place] [facility] [address] [facility] [id number] [address] Nov, [facility] [place] [facility] [address] [facility] [id number] Nov, [facility] [place] [facility] [address] [facility] [id number] [address] Nov, [facility] [place] [facility] [address] [facility] [id number], [place] [address] Oct, [facility] [place] [facility] [id number], [place] [address] May, [facility] [address] [facility] [id number] [place] [address] May, IMMUNIZATIONS No Known Immunizations SOCIAL HISTORY Never Assessed REASON FOR VISIT Decrease Morphine PLAN OF CARE VITAL SIGNS MEDICATIONS Medication Instructions Dosage Frequency Start Date End Date Duration Status Morphine Sulfate ER 15 mg Orally Once a day at bedtime 1 tablet Nov, Dec, 30 days Active RESULTS No Results [...] elbow Hospitalization History left ankle Hospitalization History [facility]
--- OUTSIDE RECORDS SUMMARY | 2018-07-02 12:05 | XMS REPORT ---
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 Active 410018996 Problem Anxiety F41.9 Active 66145993 Problem Benign prostatic hyperplasia with lower urinary tract symptoms, unspecified morphology N40.1 Active 444783481 Problem Persistent migraine aura without cerebral infarction and without status migrainosus, not intractable G43.509 Active 894418312 Problem Intractable chronic migraine without aura and without status migrainosus G43.719 Active 388116241 Problem Type 2 diabetes mellitus with unspecified complications E11.8 Active 39424617 Problem 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 Active 68922090 Problem Chronic pain due to trauma G89.21 Active 038101557 Problem Recurrent major depressive disorder, in partial remission F33.41 Active 81584755 Problem Traumatic brain injury, without LOC, initial encounter S06.9X0A Active 005941118 Problem Rad (reactive airway disease), mild intermittent, uncomplicated J45.20 Active 520960468528 Problem Obsessive-compulsive disorder, unspecified type F42.9 Active 661771525 Problem History of traumatic brain injury Z87.820 Active 89807783615067 Problem Hyperlipidemia, unspecified hyperlipidemia type E78.5 Active 66089296 Problem Anemia, unspecified type D64.9 Active 759434557 Problem History of gout Z87.39 Active 752288604 Problem Glaucoma, unspecified glaucoma, unspecified laterality H40.9 Active 95768886 Problem Herpes B00.9 Active 03606120 Problem Weak urinary stream R39.12 Active 94836297 Problem Gastroesophageal reflux disease without esophagitis K21.9 Active 406116070 ALLERGIES No Information SOCIAL HISTORY Never Assessed PLAN OF CARE VITAL SIGNS MEDICATIONS Medication Instructions Dosage Frequency Start Date End Date Duration Status Fluvoxamine Maleate 25 MG Orally Twice a day 1 tablet (give with 100mg tablet) 12h 12 Sep, 2016 30 day(s) Active RESULTS No Results [...]
--- OUTSIDE RECORDS SUMMARY | 2018-07-02 12:05 | XMS REPORT ---
Author Author NICK FONSECA Organization 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 Active 510621325 Problem Anxiety F41.9 Active 72574703 Problem Benign prostatic hyperplasia with lower urinary tract symptoms, unspecified morphology N40.1 Active 555201147 Problem Persistent migraine aura without cerebral infarction and without status migrainosus, not intractable G43.509 Active 568094154 Problem Intractable chronic migraine without aura and without status migrainosus G43.719 Active 623108185 Problem Type 2 diabetes mellitus with unspecified complications E11.8 Active 95269302 Problem 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 Active 38962615 Problem Chronic pain due to trauma G89.21 Active 123569728 Problem Recurrent major depressive disorder, in partial remission F33.41 Active 01810681 Problem Traumatic brain injury, without LOC, initial encounter S06.9X0A Active 395800660 Problem Rad (reactive airway disease), mild intermittent, uncomplicated J45.20 Active 022405252968 Problem Obsessive-compulsive disorder, unspecified type F42.9 Active 856339725 Problem History of traumatic brain injury Z87.820 Active 72795570268949 Problem Hyperlipidemia, unspecified hyperlipidemia type E78.5 Active 18338848 Problem Anemia, unspecified type D64.9 Active 551981384 Problem History of gout Z87.39 Active 863009989 Problem Glaucoma, unspecified glaucoma, unspecified laterality H40.9 Active 68560426 Problem Herpes B00.9 Active 79562187 Problem Weak urinary stream R39.12 Active 21764517 Problem Gastroesophageal reflux disease without esophagitis K21.9 Active 285836509 ALLERGIES No Information SOCIAL HISTORY Never Assessed PLAN OF CARE VITAL SIGNS MEDICATIONS Medication Instructions Dosage Frequency Start Date End Date Duration Status Morphine Sulfate ER 30 MG Orally every 12 hrs 1 tablet 12h Oct, 28 days Active RESULTS No Results PROCEDURES No Known procedures IMMUNIZATIONS No Known Immunizations MEDICAL (GENERAL) HISTORY Type Description Date Medical History History of traumatic brain injury Subdural hematoma from falling out of bed 2012 Medical History Type 2 diabetes mellitus with unspecified complications Medical 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
--- OUTSIDE RECORDS SUMMARY | 2018-07-02 12:05 | XMS REPORT ---
Author Author JOSEPH GONSALEZ Organization [facility] Address [address] [place] [address] Care Team Providers Care Lean Specialist Name Role Phone JOSEPH GONSALEZ Unavailable PROBLEMS Type Condition ICD9-CM Code TZU22-UP Code Onset Dates Condition Status SNOMED Code Problem Essential hypertension I10 Active 18760246 Problem penitentiary current use of insulin Z79.4 Active 224685571 Problem Anxiety F41.9 Active 63964863 Problem Benign prostatic hyperplasia with lower urinary tract symptoms, unspecified morphology N40.1 Active 694363255 Problem Persistent migraine aura without cerebral infarction and without status migrainosus, not intractable G43.509 Active 864203041 Problem Intractable chronic migraine without aura and without status migrainosus G43.719 Active 094950222 Problem Type 2 diabetes mellitus with unspecified complications E11.8 Active 98758735 Problem 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 Active 61512123 Problem Chronic pain due to trauma G89.21 Active 036134307 Problem Recurrent major depressive disorder, in partial remission F33.41 Active 08785472 Problem Traumatic brain injury, without LOC, initial encounter S06.9X0A Active 602907623 Problem Rad (reactive airway disease), mild intermittent, uncomplicated J45.20 Active 054347693638 Problem Obsessive-compulsive disorder, unspecified type F42.9 Active 227280496 Problem History of traumatic brain injury Z87.820 Active 93113821586732 Problem Hyperlipidemia, unspecified hyperlipidemia type E78.5 Active 81658401 Problem Anemia, unspecified type D64.9 Active 253029630 Problem History of gout Z87.39 Active 791047929 Problem Glaucoma, unspecified glaucoma, unspecified laterality H40.9 Active 73210640 Problem Herpes B00.9 Active 18609712 Problem Weak urinary stream R39.12 Active 90899369 Problem Gastroesophageal reflux disease without esophagitis K21.9 Active 958796739 ALLERGIES No Information ENCOUNTERS Encounter Location Date Diagnosis [facility] [address] [facility] [id number], [place] [address] September, [facility] [address] [facility] [id number] [place] [id number] Aug, [facility] [id number], [place] [address] Aug, [facility] [address] [id number], [place] [address] Jul, Intractable chronic migraine without aura and without status migrainosus G43.719 [facility] [id number] [address] Jul, Intractable chronic migraine without aura and without status migrainosus G43.719 [facility] [address] [place] [id number] Jul, History of traumatic brain injury Z87.820 ; Recurrent major depressive disorder , in partial remission F33.41 and Type 2 diabetes mellitus with unspecified complications E11.8 [facility] [address] [id number] [id number] Jul, [facility] [id number] [place] [id number] Jul, Intractable chronic migraine without aura and without status migrainosus G43.719 [facility] [id number], [place] [address] Jun, Anxiety F41.9 ; Traumatic brain injury, without LOC, initial encounter S06.9X0A ; Intractable chronic migraine without aura and without status migrainosus G43.719 and Recurrent major depressive disorder, in partial remission F33.41 [facility] [id number] [id number] 13 Jun, 2017 [facility] [id number] [id number] Jun, [facility] [id number] [id number] Jun, Intractable chronic migraine without aura and without status migrainosus G43.719 [facility] [id number], [place] [address] May, [facility] [address] [place] [id number] May, Recurrent major depressive disorder, in partial remission F33.41 ; Traumatic brain injury, without LOC, initial encounter S06.9X0A and Anxiety F41.9 [facility] [id number] [place] [address] May, [facility] [id number] [place] [address] [id number] May, [facility] [id number] [place] [address] May, Intractable chronic migraine without aura and without status migrainosus G43.719 [facility] [id number] [place] [address] 6932 Apr, Anxiety F41.9 ; Traumatic brain injury, without LOC, initial encounter S06.9X0A ; Intractable chronic migraine without aura and without status migrainosus G43.719 and Recurrent major depressive disorder, in partial remission F33.41 [facility] [address], [place] [address] Apr, [facility] [place] [facility] [id number] [place] [id number] Apr, Intractable chronic migraine without aura and without status migrainosus G43.719 [facility] [address], [place] [address] Apr, [facility] [id number] [place] [address]463[address] 1056 Apr, [facility] [id number] [place] [id number] Mar, [facility] [id number] [place] [address]26[address] 1753 Mar, [facility] [id number] [id number] Mar, [place] [id number] [place] [address] Mar, Intractable chronic migraine without aura and without status migrainosus G43.719 [facility] [address] [place] [id number] Mar, Encounter for examination for admission to halfway Z02.2 ; History of traumatic brain injury Z87.820 ; Recurrent major depressive disorder, in partial remission F33.41 ; Anxiety F41.9 ; Obsessive-compulsive disorder, unspecified type F42.9 ; Essential hypertension I10 and Type 2 diabetes mellitus with unspecified complications E11.8 [facility] [id number] [id number] Feb, [place] [id number] [place] [address] Feb, Obsessive-compulsive disorder, unspecified type F42.9 ; Anxiety F41.9 and Recurrent major depressive disorder, in partial remission F33.41 [place] [id number] [place] [address] 27 Jan, 2017 Traumatic brain injury, without LOC, initial encounter S06.9X0A ; Intractable chronic migraine without aura and without status migrainosus G43.719 ; Anxiety F41.9 and Recurrent major depressive disorder, in partial remission F33.41 [place] [id number] [place] [address] 20 Jan, 2017 Intractable chronic migraine without aura and without status migrainosus G43.719 [place] [address] [place] [address] 17168- 2189 19 Jan, 2017 History of traumatic brain injury Z87.820 ; Anxiety F41.9 and Recurrent major depressive disorder, in partial remission F33.41 [place] [address] [place] [address]83- [address] 13 Jan, 2017 [facility] [address] [place] [id number] 07 Jan, 2017 History of traumatic brain injury Z87.820 and Obsessive-compulsive disorder, unspecified type F42.9 [facility] [address], [place] [address] 06 Jan, 2017 Traumatic brain injury, without LOC, initial encounter S06.9X0A ; Intractable chronic migraine without aura and without status migrainosus G43.719 ; Anxiety F41.9 and Recurrent major depressive disorder, in partial remission F33.41 [facility] [address], [place] [address] 05 Jan, 2017 History of traumatic brain injury Z87.820 ; Obsessive- compulsive disorder, unspecified type F42.9 ; Anxiety F41.9 and Recurrent major depressive disorder, in partial remission F33.41 [facility] [id number][place] [address] 31 Dec, 2016 [facility] [id number] [place] [id number] Dec, Intractable chronic migraine without aura and without status migrainosus G43.719 [facility] [address] [place] [id number] Dec, Type 2 diabetes mellitus with unspecified complications E11.8 and Essential hypertension I10 [facility] [id number], [place] [address] Dec, Traumatic brain injury, without LOC, initial encounter S06.9X0A [facility] [id number], [place] [address] 16 Dec, 2016 Traumatic brain injury, without LOC, initial encounter S06.9X0A ; Intractable chronic migraine without aura and without status migrainosus G43.719 ; Anxiety F41.9 and Recurrent major depressive disorder, in partial remission F33.41 [facility] [id number], [place] [address] 15 Dec, 2016 [facility] [address], [place] [address] Dec, History of traumatic brain injury Z87.820 ; Obsessive- compulsive disorder, unspecified type F42.9 ; Anxiety F41.9 and Recurrent major depressive disorder, in partial remission F33.41 [facility] [id number], [place] [address] Dec, Traumatic brain injury, without LOC, initial encounter S06.9X0A [facility] [address], [place] [address] Dec, Anxiety F41.9 and Recurrent major depressive disorder, in partial remission F33.41 [place] [address] [place] [address]88- [address] 02 Dec, 2016 Traumatic brain injury, without LOC, initial encounter S06.9X0A ; Intractable chronic migraine without aura and without status migrainosus G43.719 ; Anxiety F41.9 and Recurrent major depressive disorder, in partial remission F33.41 [facility] [address], [place] [address] Dec, [facility] [id number] [place] [address] [id number] Nov, Intractable chronic migraine without aura and without status migrainosus G43.719 [facility] [address] [place] [id number] Nov, Obsessive-compulsive disorder, unspecified type F42.9 ; Anxiety F41.9 and Intractable chronic migraine without aura and without status migrainosus G43.719 [facility] [id number], [place] [address] Nov, Traumatic brain injury, without LOC, initial encounter S06.9X0A ; Intractable chronic migraine without aura and without status migrainosus G43.719 ; Anxiety F41.9 and Recurrent major depressive disorder, in partial remission F33.41 [facility] [id number], [place] [id number] Nov, [facility] [id number], [place] [address] Nov, Anxiety F41.9 and Recurrent major depressive disorder, in partial remission F33.41 [facility] [address], [place] [address] Nov, [facility] [id number] [place] [address] [id number] Nov, [facility] [id number] [place] [address] 40682- 1052 Oct, [facility] [address] [place] [address]69- 4763 Oct, Anxiety F41.9 and Recurrent major depressive disorder, in partial remission F33.41 [facility] [address] [place] [address] 52769- 1737 Oct, [facility] [id number] [place] [address] 25377- 3168 September, Anxiety F41.9 and Recurrent major depressive disorder, in partial remission F33.41 [facility] [address] [place] [address] 24043- 2028 September, Traumatic brain injury, without LOC, initial encounter S06.9X0A ; Intractable chronic migraine without aura and without status migrainosus G43.719 ; Anxiety F41.9 and Recurrent major depressive disorder, in partial remission F33.41 [facility] [address], [place] [address] September, [facility] [address], [place] [address] September, Anxiety F41.9 [facility] [address], [place] [address] September, [facility] [id number] [id number] September, Type 2 diabetes mellitus with unspecified complications E11.8 [facility] [id number] [id number] September, Type 2 diabetes mellitus with unspecified complications E11.8 [facility] [address] [place] [id number] September, Essential hypertension I10 and History of traumatic brain injury Z87.820 [facility] [address] [place] [address] 27486- 8336 Aug, [facility] [address] [place] [address] [id number] Aug, Type 2 diabetes mellitus with unspecified complications E11.8 and Benign prostatic hyperplasia with lower urinary tract symptoms, unspecified morphology N40.1 [facility] [id number] [id number] Aug, [place] [address] [address] Aug, [place] [id number] [place] [address] [id number]- 9516 Jul, Traumatic brain injury, without LOC, initial encounter S06.9X0A ; Intractable chronic migraine without aura and without status migrainosus G43.719 ; Anxiety F41.9 and Recurrent major depressive disorder, in partial remission F33.41 [facility] [address] [address] Jul, [facility] [address] [address] Jul, [facility] [id number] [place] [address] [id number] Jun, [place] [id number] [place] [address] [phone]- 8366 Jun, [facility] [address] [address] Jun, [facility] [address] [place] [address] [id number] Jun, Encounter to establish care Z76.89 [facility] [address] [id number] [place] [address] 77[address] Jun, [facility] [address] [facility] [id number], [place] [address] Jun, [facility] [address] [facility] [id number], [place] [address]- 2546 Jun, [facility] [address] [facility] [id number], [place] [address] Jun, [facility] [place] [address] [id number] [place] [id number] May, Dental examination Z01.20 [facility] [place] [address] [id number] [place] [id number] Dec, Dental examination Z01.20 [facility] [place] [address] [id number] [place] [id number] September, Dental examination Z01.20 [facility] [place] [address] [id number] [place] [id number] Dec, Dental examination V72.2 [facility] [address] [facility] [id number] [place] [address]- 5[address] Aug, [facility] [id number], [place] [address] 2086 Aug, [facility] [id number], [place] [address] 7[address] Apr, [facility] [address] [facility] [id number], [place] [address]- 1146 Nov, [facility] [address] [facility] [id number], [place] [address]- 3836 Nov, [facility] [address] [facility] [id number], [place] [address] 2546 Nov, [facility] [id number], [place] [address]- [address]646 Nov, [facility] [address] [facility] [id number] [place] [address]- 120[address] Oct, [facility] [address] [facility] [id number][place] [address]- 1416 May, [facility] [address] [facility] [id number] [place] [address]- 0326 May, IMMUNIZATIONS No Known Immunizations SOCIAL HISTORY Never Assessed REASON FOR VISIT intake PLAN OF CARE Activity Details Follow Up 2 Weeks Reason:Anxiety and depression VITAL SIGNS MEDICATIONS Unknown Medications RESULTS No Results PROCEDURES Procedure Date Ordered Result Body Site Psych diagnostic evaluation, new patient Jan 01, 2017 INSTRUCTIONS MEDICATIONS ADMINISTERED No Known Medications MEDICAL (GENERAL) HISTORY Type Description Date Medical History History of traumatic brain injury Subdural hematoma from falling out of bed 2012 Medical History Type 2 diabetes mellitus with unspecified complications Medical History penitentiary current use of insulin Medical 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 History left ankle Hospitalization History [facility]
--- OUTSIDE RECORDS SUMMARY | 2018-07-02 12:06 | XMS REPORT ---
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 Name Role Phone NICK FONSECA Unavailable PROBLEMS Type Condition ICD9-CM Code OAY25-FL Code Onset Dates Condition Status SNOMED Code Problem Essential hypertension I10 Active 57670252 Problem prison current use of insulin Z79.4 Active 314458705 Problem Anxiety F41.9 Active 03514186 Problem Benign prostatic hyperplasia with lower urinary tract symptoms, unspecified morphology N40.1 Active 413093603 Problem Persistent migraine aura without cerebral infarction and without status migrainosus, not intractable G43.509 Active 934681935 Problem Intractable chronic migraine without aura and without status migrainosus G43.719 Active 330828695 Problem Type 2 diabetes mellitus with unspecified complications E11.8 Active 69793287 Problem 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 Active 82799012 Problem Chronic pain due to trauma G89.21 Active 891189798 Problem Recurrent major depressive disorder, in partial remission F33.41 Active 87727259 Problem Traumatic brain injury, without LOC, initial encounter S06.9X0A Active 621238200 Problem Rad (reactive airway disease), mild intermittent, uncomplicated J45.20 Active 260794843206 Problem Obsessive-compulsive disorder, unspecified type F42.9 Active 541936605 Problem History of traumatic brain injury Z87.820 Active 30125263762531 Problem Hyperlipidemia, unspecified hyperlipidemia type E78.5 Active 43223633 Problem Anemia, unspecified type D64.9 Active 482208933 Problem History of gout Z87.39 Active 917176699 Problem Glaucoma, unspecified glaucoma, unspecified laterality H40.9 Active 44065783 Problem Herpes B00.9 Active 54254627 Problem Weak urinary stream R39.12 Active 33654781 Problem Gastroesophageal reflux disease without esophagitis K21.9 Active 052187885 ALLERGIES No Information ENCOUNTERS Encounter Location Date Diagnosis [facility] [id number], [place] [address] Oct, [facility] [address], [place] [address] Oct, [facility] [id number], [place] [address] September, Anxiety F41.9 ; Traumatic brain injury, without LOC, initial encounter S06.9X0A ; Intractable chronic migraine without aura and without status migrainosus G43.719 and Recurrent major depressive disorder, in partial remission F33.41 [facility] [address] [place] [id number] September, Weight gain R63.5 and Type 2 diabetes mellitus with unspecified complications E11.8 [place] [address], [place] [address] September, [facility] [address], [place] [address] Aug, [facility] [address] [facility] [id number] [place] [id number] Aug, [facility] [address], [place] [address] Aug, [facility] [id number], [place] [address] Jul, Intractable chronic migraine without aura and without status migrainosus G43.719 [facility] [id number], [place] [address] Jul, Intractable chronic migraine without aura and without status migrainosus G43.719 [facility] [address] [place] [id number] Jul, History of traumatic brain injury Z87.820 ; Recurrent major depressive disorder , in partial remission F33.41 and Type 2 diabetes mellitus with unspecified complications E11.8 [facility] [id number] [id number] Jul, [facility] [address] [id number] [id number] Jul, Intractable chronic migraine without aura and without status migrainosus G43.719 [facility] [address] [facility] [id number], [place] [address] Jun, Anxiety F41.9 ; Traumatic brain injury, without LOC, initial encounter S06.9X0A ; Intractable chronic migraine without aura and without status migrainosus G43.719 and Recurrent major depressive disorder, in partial remission F33.41 [facility] [address] [id number] [id number] Jun, [facility] [address] [facility] [id number] [address] Jun, [facility] [id number] [address] Jun, Intractable chronic migraine without aura and without status migrainosus G43.719 [facility] [address], [place] [address] May, [facility] [address] [place] [id number] May, Recurrent major depressive disorder, in partial remission F33.41 ; Traumatic brain injury, without LOC, initial encounter S06.9X0A and Anxiety F41.9 [facility] [id number] [address] May, [facility] [address] [id number] [id number] May, [facility] [id number], [place] [address] May, Intractable chronic migraine without aura and without status migrainosus G43.719 [facility] [id number], [place] [address] Apr, Anxiety F41.9 ; Traumatic brain injury, without LOC, initial encounter S06.9X0A ; Intractable chronic migraine without aura and without status migrainosus G43.719 and Recurrent major depressive disorder, in partial remission F33.41 [facility] [address], [place] [address] Apr, [facility] [id number] [address] Apr, Intractable chronic migraine without aura and without status migrainosus G43.719 [facility] [address] [address] Apr, [facility] [address], [place] [address] Apr, [facility] [id number] [place] [id number] Mar, [facility] [id number] [place] [address] Mar, [facility] [id number] [place] [id number] Mar, [facility] [id number], [place] [address] Mar, Intractable chronic migraine without aura and without status migrainosus G43.719 [facility] [address] [place] [id number] Mar, 2017 Encounter for examination for admission to [facility] Z02.2 ; History of traumatic brain injury Z87.820 ; Recurrent major depressive disorder, in partial remission F33.41 ; Anxiety F41.9 ; Obsessive-compulsive disorder, unspecified type F42.9 ; Essential hypertension I10 and Type 2 diabetes mellitus with unspecified complications E11.8 [facility] [id number] [id number] Feb, [facility] [address] [address] Feb, Obsessive-compulsive disorder, unspecified type F42.9 ; Anxiety F41.9 and Recurrent major depressive disorder, in partial remission F33.41 [facility] [id number], [place] [address] 27 Jan, 2017 Traumatic brain injury, without LOC, initial encounter S06.9X0A ; Intractable chronic migraine without aura and without status migrainosus G43.719 ; Anxiety F41.9 and Recurrent major depressive disorder, in partial remission F33.41 [facility] [address], [place] [address] 20 Jan, 2017 Intractable chronic migraine without aura and without status migrainosus G43.719 [facility] [address], [place] [address] 19 Jan, 2017 History of traumatic brain injury Z87.820 ; Anxiety F41.9 and Recurrent major depressive disorder, in partial remission F33.41 [place] [address], [place] [address] 13 Jan, [address] [id number] 07 Jan, 2017 History of traumatic brain injury Z87.820 and Obsessive-compulsive disorder, unspecified type F42.9 [place] [address] [place] [address] 06 Jan, 2017 Traumatic brain injury, without LOC, initial encounter S06.9X0A ; Intractable chronic migraine without aura and without status migrainosus G43.719 ; Anxiety F41.9 and Recurrent major depressive disorder, in partial remission F33.41 [place] [id number], [place] [address] 05 Jan, 2017 History of traumatic brain injury Z87.820 ; Obsessive- compulsive disorder, unspecified type F42.9 ; Anxiety F41.9 and Recurrent major depressive disorder, in partial remission F33.41 [facility] [id number] [place] [id number] Dec, [facility] [id number] [id number] Dec, Intractable chronic migraine without aura and without status migrainosus G43.719 [facility] [address] [place] [id number] Dec, Type 2 diabetes mellitus with unspecified complications E11.8 and Essential hypertension I10 [facility] [id number] [place] [address] 18 Dec, 2016 Traumatic brain injury, without LOC, initial encounter S06.9X0A [facility] [id number] [place] [address] 16 Dec, 2016 Traumatic brain injury, without LOC, initial encounter S06.9X0A ; Intractable chronic migraine without aura and without status migrainosus G43.719 ; Anxiety F41.9 and Recurrent major depressive disorder, in partial remission F33.41 [address] [id number] [place] [address] 15 Dec, 2016 [place] [id number] [place] [address] 11 Dec, 2016 History of traumatic brain injury Z87.820 ; Obsessive- compulsive disorder, unspecified type F42.9 ; Anxiety F41.9 and Recurrent major depressive disorder, in partial remission F33.41 [place] [address] [place] [address] 09 Dec, 2016 Traumatic brain injury, without LOC, initial encounter S06.9X0A [facility] [address] [place] [address] 03 Dec, 2016 Anxiety F41.9 and Recurrent major depressive disorder, in partial remission F33.41 [facility] [address] [place] [address] 02 Dec, 2016 Traumatic brain injury, without LOC, initial encounter S06.9X0A ; Intractable chronic migraine without aura and without status migrainosus G43.719 ; Anxiety F41.9 and Recurrent major depressive disorder, in partial remission F33.41 [facility] [address] [place] [address] Dec, [facility] [address] [id number] [id number] Nov, Intractable chronic migraine without aura and without status migrainosus G43.719 [facility] [address] [id number] Nov, Obsessive-compulsive disorder, unspecified type F42.9 ; Anxiety F41.9 and Intractable chronic migraine without aura and without status migrainosus G43.719 [facility] [id number] [address] Nov, Traumatic brain injury, without LOC, initial encounter S06.9X0A ; Intractable chronic migraine without aura and without status migrainosus G43.719 ; Anxiety F41.9 and Recurrent major depressive disorder, in partial remission F33.41 [facility] [id number] [id number] Nov, [facility] [address], [place] [address] Nov, Anxiety F41.9 and Recurrent major depressive disorder, in partial remission F33.41 [facility] [address], [place] [address] Nov, [facility] [address] [id number] [id number] Nov, [facility] [id number], [place] [address] Oct, [facility] [id number] [address] Oct, Anxiety F41.9 and Recurrent major depressive disorder, in partial remission F33.41 [facility] [address] [address] Oct, [facility] [id number] [address] September, Anxiety F41.9 and Recurrent major depressive disorder, in partial remission F33.41 [facility] [id number], [place] [address] September, Traumatic brain injury, without LOC, initial encounter S06.9X0A ; Intractable chronic migraine without aura and without status migrainosus G43.719 ; Anxiety F41.9 and Recurrent major depressive disorder, in partial remission F33.41 [facility] [address], [place] [address] September, [facility] [id number] [place] [address] September, Anxiety F41.9 [facility] [id number] [place] [address] September, [facility] [id number] [place] [id number] September, Type 2 diabetes mellitus with unspecified complications E11.8 [id number] [place] [id number] September, Type 2 diabetes mellitus with unspecified complications E11.8 [facility] [address] [place] [id number] September, Essential hypertension I10 and History of traumatic brain injury Z87.820 [facility] [address], [place] [address] Aug, [facility] [address] [place] [id number] Aug, Type 2 diabetes mellitus with unspecified complications E11.8 and Benign prostatic hyperplasia with lower urinary tract symptoms, unspecified morphology N40.1 [facility] [id number] [address] Aug, [facility] [address] [address] Aug, [facility] [address] [address] Jul, Traumatic brain injury, without LOC, initial encounter S06.9X0A ; Intractable chronic migraine without aura and without status migrainosus G43.719 ; Anxiety F41.9 and Recurrent major depressive disorder, in partial remission F33.41 [facility] [address], [place] [address] Jul, [facility] [address], [place] [address] Jul, [facility] [place] [facility] [id number] [id number] Jun, [facility] [address], [place] [address] Jun, [facility] [id number] [place] [address] Jun, [facility] [address] [id number] Jun, Encounter to establish care Z76.89 [facility] [address], [place] [address] Jun, [facility] [address], [place] [address] Jun, [facility] [address], [place] [address] Jun, [facility] [id number], [place] [address] Jun, [facility] [place] [address] [id number] [place] [id number] May, Dental examination Z01.20 [facility] [place] [address] [id number] [place] [id number] Dec, Dental examination Z01.20 [facility] [place] [address] [id number] [place] [id number] September, Dental examination Z01.20 [facility] [place] [address] [id number] [place] [id number] Dec, Dental examination V72.2 [facility] [id number], [place] [address] Aug, [facility] [address] [address] Aug, [facility] [id number], [place] [address] Apr, [facility] [address], [place] [address] Nov, [facility] [id number], [place] [address] 79[address] Nov, [facility] [address] [address] Nov, [facility] [address], [place] [address] Nov, [facility] [id number], [place] [address] Oct, [facility] [id number], [place] [address] May, [facility] [id number], [place] [address] May, IMMUNIZATIONS No Known Immunizations SOCIAL HISTORY Never Assessed REASON FOR VISIT Controlled Med Refill PLAN OF CARE VITAL SIGNS MEDICATIONS Medication Instructions Dosage Frequency Start Date End Date Duration Status Morphine Sulfate ER 15 mg Orally Once a day at bedtime 1 tablet Apr, 28 days Active RESULTS No Results PROCEDURES No Known procedures INSTRUCTIONS MEDICATIONS ADMINISTERED No Known Medications MEDICAL (GENERAL) HISTORY Type Description Date Medical History History of traumatic brain injury Subdural hematoma from falling out of bed 2012 Medical History Type 2 diabetes mellitus with unspecified complications 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
--- OUTSIDE RECORDS SUMMARY | 2018-07-02 12:06 | XMS REPORT ---
Author Author JEANNE GAMBOA [facility] Address [address] [place] [address] Care Team Providers Care Sheet Layer Name Role Phone COOPERJEANNE Unavailable PROBLEMS Type Condition ICD9-CM Code ZNY63-AT Code Onset Dates Condition Status SNOMED Code Problem Essential hypertension I10 Active 82693667 Problem custodial current use of insulin Z79.4 Active 632810618 Problem Anxiety F41.9 Active 56530193 Problem Benign prostatic hyperplasia with lower urinary tract symptoms, unspecified morphology N40.1 Active 666645859 Problem Persistent migraine aura without cerebral infarction and without status migrainosus, not intractable G43.509 Active 728745482 Problem Intractable chronic migraine without aura and without status migrainosus G43.719 Active 054696231 Problem Type 2 diabetes mellitus with unspecified complications E11.8 Active 51641467 Problem 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 Active 02135326 Problem Chronic pain due to trauma G89.21 Active 777163066 Problem Recurrent major depressive disorder, in partial remission F33.41 Active 10083857 Problem Traumatic brain injury, without LOC, initial encounter S06.9X0A Active 404420892 Problem Rad (reactive airway disease), mild intermittent, uncomplicated J45.20 Active 494784863607 Problem Obsessive-compulsive disorder, unspecified type F42.9 Active 902388869 Problem History of traumatic brain injury Z87.820 Active 83001438908328 Problem Hyperlipidemia, unspecified hyperlipidemia type E78.5 Active 64669661 Problem Anemia, unspecified type D64.9 Active 098877107 Problem History of gout Z87.39 Active 975405512 Problem Glaucoma, unspecified glaucoma, unspecified laterality H40.9 Active 25463057 Problem Herpes B00.9 Active 09357980 Problem Weak urinary stream R39.12 Active 65763925 Problem Gastroesophageal reflux disease without esophagitis K21.9 Active 430282771 ALLERGIES Substance Reaction Event Type Date Status Prozac Unknown Drug Allergy Dec, Active Penicillin V Potassium Unknown Drug Allergy Dec, Active Abilify Unknown Drug Allergy Dec, Active ENCOUNTERS Encounter Location Date [facility] [place] [address] [facility]NOTE 3] [id number] [place] [id number] September, EVANGELINA AD[facility] [address] [facility] [id number] [place] [id number] Aug, [facility] [address] [address] Aug, [facility] [id number] [address] Jul, Intractable chronic migraine without aura and without status migrainosus G43.719 [facility] [address] [id number] [address] 15 Jul, 2017 Intractable chronic migraine without aura and without status migrainosus G43.719 [facility] [address] [place] [id number] Jul, History of traumatic brain injury Z87.820 ; Recurrent major depressive disorder , in partial remission F33.41 and Type 2 diabetes mellitus with unspecified complications E11.8 [facility] [address] [id number] [place] [id number] Jul, [facility] [id number] [place] [address] Jul, Intractable chronic migraine without aura and without status migrainosus G43.719 [facility] [address] [id number] [address] Jun, Anxiety F41.9 ; Traumatic brain injury, without LOC, initial encounter S06.9X0A ; Intractable chronic migraine without aura and without status migrainosus G43.719 and Recurrent major depressive disorder, in partial remission F33.41 [facility] [address] [id number] [place] [id number] 13 Jun, 2017 [facility] [address] [id number] [address] Jun, [facility] [id number] [place] [address] Jun, Intractable chronic migraine without aura and without status migrainosus G43.719 [facility] [address] [id number] [address] May, [facility] [address] [place] [address] May, Recurrent major depressive disorder, in partial remission F33.41 ; Traumatic brain injury, without LOC, initial encounter S06.9X0A and Anxiety F41.9 [facility] [address] [id number] [address] May, [facility] [id number] [place] [id number] May, [facility] [address] [id number] [address] May, Intractable chronic migraine without aura and without status migrainosus G43.719 [facility] [address] [id number] [address] Apr, Anxiety F41.9 ; Traumatic brain injury, without LOC, initial encounter S06.9X0A ; Intractable chronic migraine without aura and without status migrainosus G43.719 and Recurrent major depressive disorder, in partial remission F33.41 [facility] [address] [id number] [address] Apr, [facility] [address] [id number] [place] [address] Apr, Intractable chronic migraine without aura and without status migrainosus G43.719 [facility] [address] [id number] [address] Apr, [facility] [id number] [address] Apr, [facility] [id number] [place] [id number] Mar, [facility] [address] [id number] [address] Mar, [facility] [id number] [place] [address] Mar, [facility] [id number] [address] Mar, Intractable chronic migraine without aura and without status migrainosus G43.719 [facility] [address] [place] [id number] 09 Mar, 2017 Encounter for examination for admission to halfway Z02.2 ; History of traumatic brain injury Z87.820 ; Recurrent major depressive disorder, in partial remission F33.41 ; Anxiety F41.9 ; Obsessive-compulsive disorder, unspecified type F42.9 ; Essential hypertension I10 and Type 2 diabetes mellitus with unspecified complications E11.8 [facility] [id number] [place] [id number] Feb, [facility] [address] [id number] [address] 10 Feb, 2017 Obsessive-compulsive disorder, unspecified type F42.9 ; Anxiety F41.9 and Recurrent major depressive disorder, in partial remission F33.41 [facility] [address] [id number] [address] 27 Jan, 2017 Traumatic brain injury, without LOC, initial encounter S06.9X0A ; Intractable chronic migraine without aura and without status migrainosus G43.719 ; Anxiety F41.9 and Recurrent major depressive disorder, in partial remission F33.41 [facility] [address] [id number] [address] 20 Jan, 2017 Intractable chronic migraine without aura and without status migrainosus G43.719 [facility] [id number] [address] 19 Jan, 2017 History of traumatic brain injury Z87.820 ; Anxiety F41.9 and Recurrent major depressive disorder, in partial remission F33.41 [facility] [address] [id number] [address] 13 Jan, 2017 [facility] [address] [place] [address] 07 Jan, 2017 History of traumatic brain injury Z87.820 and Obsessive-compulsive disorder, unspecified type F42.9 [facility] [address] [place] [address] 06 Jan, 2017 Traumatic brain injury, without LOC, initial encounter S06.9X0A ; Intractable chronic migraine without aura and without status migrainosus G43.719 ; Anxiety F41.9 and Recurrent major depressive disorder, in partial remission F33.41 [facility] [address]005[address] [address] 05 Jan, 2017 History of traumatic brain injury Z87.820 ; Obsessive- compulsive disorder, unspecified type F42.9 ; Anxiety F41.9 and Recurrent major depressive disorder, in partial remission F33.41 [facility] [id number] [place] [address] Dec, [facility] [id number] [place] [id number] Dec, Intractable chronic migraine without aura and without status migrainosus G43.719 [facility] [address] [place] [address] Dec, Type 2 diabetes mellitus with unspecified complications E11.8 and Essential hypertension I10 [facility] [id number] [place] [address] Dec, Traumatic brain injury, without LOC, initial encounter S06.9X0A [facility] [address] [place] [address] 16 Dec, 2016 Traumatic brain injury, without LOC, initial encounter S06.9X0A ; Intractable chronic migraine without aura and without status migrainosus G43.719 ; Anxiety F41.9 and Recurrent major depressive disorder, in partial remission F33.41 [facility] [address]00565100[place] [address] Dec, [facility] [address] [place] [address] Dec, History of traumatic brain injury Z87.820 ; Obsessive- compulsive disorder, unspecified type F42.9 ; Anxiety F41.9 and Recurrent major depressive disorder, in partial remission F33.41 [facility] [id number] [place] [address] 09 Dec, 2016 Traumatic brain injury, without LOC, initial encounter S06.9X0A [facility] [id number] [place] [address] 03 Dec, 2016 Anxiety F41.9 and Recurrent major depressive disorder, in partial remission F33.41 [facility] [address]005[address] [address] 02 Dec, 2016 Traumatic brain injury, without LOC, initial encounter S06.9X0A ; Intractable chronic migraine without aura and without status migrainosus G43.719 ; Anxiety F41.9 and Recurrent major depressive disorder, in partial remission F33.41 [facility] [address]005[address]100[place] [address] Dec, [facility] [id number] [place] [id number] Nov, Intractable chronic migraine without aura and without status migrainosus G43.719 [facility] [address] [place] [address] Nov, Obsessive-compulsive disorder, unspecified type F42.9 ; Anxiety F41.9 and Intractable chronic migraine without aura and without status migrainosus G43.719 [facility] [address] [place] [address] Nov, Traumatic brain injury, without LOC, initial encounter S06.9X0A ; Intractable chronic migraine without aura and without status migrainosus G43.719 ; Anxiety F41.9 and Recurrent major depressive disorder, in partial remission F33.41 [facility] [address] [id number] [place] [address] Nov, [facility] [address] [address] Nov, Anxiety F41.9 and Recurrent major depressive disorder, in partial remission F33.41 [facility] [address] [address] Nov, [facility] [id number] [place] [id number] Nov, [facility] [id number] [place] [address] Oct, [facility] [id number] [place] [address] Oct, Anxiety F41.9 and Recurrent major depressive disorder, in partial remission F33.41 [facility] [address] [address] Oct, [facility] [address] [id number] [address] September, Anxiety F41.9 and Recurrent major depressive disorder, in partial remission F33.41 [facility] [id number] [address] September, Traumatic brain injury, without LOC, initial encounter S06.9X0A ; Intractable chronic migraine without aura and without status migrainosus G43.719 ; Anxiety F41.9 and Recurrent major depressive disorder, in partial remission F33.41 [facility] [id number] [address] September, [facility] [id number] [address] September, Anxiety F41.9 [facility] [address] [id number] [address] September, [facility] [id number] [place] [address] September, Type 2 diabetes mellitus with unspecified complications E11.8 [facility] [id number] [place] [address] September, Type 2 diabetes mellitus with unspecified complications E11.8 [facility] [address] [place] [address] September, Essential hypertension I10 and History of traumatic brain injury Z87.820 [facility] [address] [address] Aug, [facility] [address] [place] [address] Aug, Type 2 diabetes mellitus with unspecified complications E11.8 and Benign prostatic hyperplasia with lower urinary tract symptoms, unspecified morphology N40.1 [facility] [id number] [place] [address] Aug, [facility] [address] [address] Aug, [facility] [address] [place] [address] Jul, Traumatic brain injury, without LOC, initial encounter S06.9X0A ; Intractable chronic migraine without aura and without status migrainosus G43.719 ; Anxiety F41.9 and Recurrent major depressive disorder, in partial remission F33.41 [facility] [address] [address] 26[address] Jul, [facility] [address] [address] Jul, [facility] [id number] [place] [id number] Jun, [facility] [address] [address] Jun, [facility] [address] [place] [address]- [address]1 Jun, [facility] [address] [place] [id number] Jun, Encounter to establish care Z76.89 [facility] [address] [facility] [address]] [id number] [place] [address] Jun, [facility] [address] [facility]NOTE 3] [id number] [place] [address] Jun, [facility] [id number] Jun, [facility] [id number] [address] Jun, [facility] [address] [id number] [place] [id number] May, [facility] examination Z01.[address] [facility] [place] [address] [id number] [place] [id number] Dec, Dental examination Z01.[address] [facility] [place] [address] [id number] [place] [id number] September, Dental examination Z01.20 [facility] [place] [address] [id number] [place] [id number] Dec, Dental examination V72.2 [facility] [id number] [address] Aug, [facility] [id number] [address] Aug, [facility] [id number] Apr, [facility] [address] [address]- 80[address] Nov, [facility] [id number] [address]- [address] Nov, [facility] [id number] [address]- 6[address] Nov, [facility] [address] [facility]] [id number] [place] [address] 48[address] Nov, [facility] [address] [facility]] [id number] [place] [address] Oct, [facility] [address] [facility] 3] [id number] [place] [address] May, [facility] [address] [facility]] [id number] [place] [address] May, IMMUNIZATIONS No Known Immunizations SOCIAL HISTORY Never Assessed REASON FOR VISIT f/u briana PLAN OF CARE Activity Details Follow Up 2 Months Reason: VITAL SIGNS Height 72.0 in 2017-01-06 Weight 195 lbs 2017-01-06 Heart Rate 76 bpm 2017-01-06 Respiratory Rate 20 2017-01-06 BMI 26.44 kg/m2 2017-01-06 Blood pressure systolic 130 mmHg 2017-01-06 Blood pressure diastolic 70 mmHg 2017-01-06 MEDICATIONS Medication Instructions Dosage Frequency Start Date End Date Duration Status Nuedexta 20-10 MG Orally every 12 hrs 1 capsule 12h 30 day(s) Active Melatonin 3 MG Orally Once a day 2 tablets at bedtime as needed with food 24h Active Travatan Z 0.004 % Ophthalmic Once a day 1 drop into affected eye in the evening 24h Active Systane 0.4-0.3 % Ophthalmic at bedtime 1 drop into both eyes Active MiraLax 17 gm/dose Orally Once a day 17 grams mixed in 8 oz of water or juice 24h Active Vitamin D 2000 UNIT Orally Once a day 1 tablet 24h Active Loperamide HCl 2 MG Orally 8 time(s) a day 1 capsule Active Fluvoxamine Maleate 25 MG Orally Twice a day 1 tablet (give with 100mg tablet) 12h 30 day(s) Active Effexor XR 75 MG Orally Once a day 1 capsule with food 24h 30 days Active Fluvoxamine Maleate 100 mg Orally Twice a day 1 tablet 12h 30 day(s) Active Verapamil HCl ER 180 MG Orally twice a day 1 tablet 12h Active Urecholine 25 MG Orally 3 times a day 1 tablet 8h Active Linzess 145 MCG Orally Once a day 1 capsule 24h Active Topamax 25 MG Orally Twice a day 1 tablet 12h 30 day(s) Active Latuda 60 mg Orally Once a day 1 tablet with food 24h 30 days Active Depakote Sprinkles 125 MG Orally 3 times a day 2 capsules 8h 30 days Active Trazodone HCl 150 MG Orally Once a day 1 tablet at bedtime 24h 30 days Active Allopurinol 300 MG Orally Once a day 1 tablet 24h Active Morphine Sulfate ER 15 mg Orally Once a day at bedtime 1 tablet Nov, Dec, 30 days Active RESULTS No Results PROCEDURES Procedure Date Ordered Result Body Site [facility] VISIT ESTABLISHED PATIENT Jan 06, 2017 INSTRUCTIONS MEDICATIONS ADMINISTERED No Known Medications MEDICAL (GENERAL) HISTORY Type Description Date Medical History History of traumatic brain injury Subdural hematoma from falling out of bed 2012 Medical History Type 2 diabetes mellitus with unspecified complications 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
--- OUTSIDE RECORDS SUMMARY | 2018-07-02 12:06 | XMS REPORT ---
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21 Active 994949692 Problem Recurrent major depressive disorder, in partial remission F33.41 Active 44831835 Problem Traumatic brain injury, without LOC, initial encounter S06.9X0A Active 694619234 Problem Rad (reactive airway disease), mild intermittent, uncomplicated J45.20 Active 150348202991 Problem Obsessive-compulsive disorder, unspecified type F42.9 Active 355631122 Problem History of traumatic brain injury Z87.820 Active 53226885666391 Problem Hyperlipidemia, unspecified hyperlipidemia type E78.5 Active 71395535 Problem Anemia, unspecified type D64.9 Active 473075878 Problem History of gout Z87.39 Active 156780624 Problem Glaucoma, unspecified glaucoma, unspecified laterality H40.9 Active 30602465 Problem Herpes B00.9 Active 18117882 Problem Weak urinary stream R39.12 Active 00192834 Problem Gastroesophageal reflux disease without esophagitis K21.9 Active 818996606 ALLERGIES No Information SOCIAL HISTORY Never Assessed PLAN OF CARE VITAL SIGNS MEDICATIONS Unknown Medications RESULTS No Results PROCEDURES No Known procedures IMMUNIZATIONS No Known Immunizations MEDICAL (GENERAL) HISTORY Type Description Date Medical History History of traumatic brain injury Subdural hematoma from falling out of bed 2012 Medical History Type 2 diabetes mellitus with unspecified complications Medical History 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
--- OUTSIDE RECORDS SUMMARY | 2018-07-02 12:07 | XMS REPORT ---
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 cerebral infarction and without status migrainosus, not intractable G43.509 Active 833647720 Problem Intractable chronic migraine without aura and without status migrainosus G43.719 Active 456640105 Problem Type 2 diabetes mellitus with unspecified complications E11.8 Active 46990569 Problem 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 Active 07197101 Problem Chronic pain due to trauma G89.21 Active 679680888 Problem Recurrent major depressive disorder, in partial remission F33.41 Active 33022123 Problem Traumatic brain injury, without LOC, initial encounter S06.9X0A Active 713130718 Problem Rad (reactive airway disease), mild intermittent, uncomplicated J45.20 Active 843766783424 Problem Obsessive-compulsive disorder, unspecified type F42.9 Active 055706029 Problem History of traumatic brain injury Z87.820 Active 87204528663021 Problem Hyperlipidemia, unspecified hyperlipidemia type E78.5 Active 52755719 Problem Anemia, unspecified type D64.9 Active 670727725 Problem History of gout Z87.39 Active 953853827 Problem Glaucoma, unspecified glaucoma, unspecified laterality H40.9 Active 55468013 Problem Herpes B00.9 Active 98243517 Problem Weak urinary stream R39.12 Active 07502087 Problem Gastroesophageal reflux disease without esophagitis K21.9 Active 446763617 ALLERGIES No Information ENCOUNTERS Encounter Location Date Diagnosis [facility], [place] [id number] [address] September, [facility] [place] [address] [address] Jul, Intractable chronic migraine without aura and without status migrainosus G43.719 [facility] [place] [id number] [address] Jul, Intractable chronic migraine without aura and without status migrainosus G43.719 [facility] [address] [place], [place] [id number] Jul, History of traumatic brain injury Z87.820 ; Recurrent major depressive disorder , in partial remission F33.41 and Type 2 diabetes mellitus with unspecified complications E11.8 [facility] [id number] [place] [id number] Jul, [facility] [id number] [place] [id number] Jul, Intractable chronic migraine without aura and without status migrainosus G43.719 [facility] [place] [id number] [address] Jun, Anxiety F41.9 ; Traumatic brain injury, without LOC, initial encounter S06.9X0A ; Intractable chronic migraine without aura and without status migrainosus G43.719 and Recurrent major depressive disorder, in partial remission F33.41 [facility] [id number] [place] [id number] Jun, [facility] [place] [id number] [address] Jun, [facility] [id number] [place] [id number] Jun, Intractable chronic migraine without aura and without status migrainosus G43.719 [facility] [place] [id number] [address] May, [facility] [address] [place] [id number] May, Recurrent major depressive disorder, in partial remission F33.41 ; Traumatic brain injury, without LOC, initial encounter S06.9X0A and Anxiety F41.9 [facility] [address] [address] May, [facility] [id number] [place] [id number] May, [facility] [id number] [place] [address] May, Intractable chronic migraine without aura and without status migrainosus G43.719 [facility] [place] [id number] [place] [address] Apr, Anxiety F41.9 ; Traumatic brain injury, without LOC, initial encounter S06.9X0A ; Intractable chronic migraine without aura and without status migrainosus G43.719 and Recurrent major depressive disorder, in partial remission F33.41 [facility] [place] [id number] [address] Apr, [facility] [id number] [place] [address] [id number] Apr, Intractable chronic migraine without aura and without status migrainosus G43.719 [facility] [place] [id number] [address] Apr, [facility] [id number] [address] Apr, [facility] [id number] [place] [id number] Mar, [facility] [id number] [address] Mar, [facility] [id number] [place] [id number] Mar, [facility] [id number] [place] [address] Mar, Intractable chronic migraine without aura and without status migrainosus G43.719 [facility] [address] [place] [id number] Mar, Encounter for examination for admission to usp Z02.2 ; History of traumatic brain injury Z87.820 ; Recurrent major depressive disorder, in partial remission F33.41 ; Anxiety F41.9 ; Obsessive-compulsive disorder, unspecified type F42.9 ; Essential hypertension I10 and Type 2 diabetes mellitus with unspecified complications E11.8 [facility] [id number] [place] [id number] Feb, [place] [address] [place] [address] Feb, Obsessive-compulsive disorder, unspecified type F42.9 ; Anxiety F41.9 and Recurrent major depressive disorder, in partial remission F33.41 [place] [address] [address] Jan, Traumatic brain injury, without LOC, initial encounter S06.9X0A ; Intractable chronic migraine without aura and without status migrainosus G43.719 ; Anxiety F41.9 and Recurrent major depressive disorder, in partial remission F33.41 [place] [id number] [address] Jan, Intractable chronic migraine without aura and without status migrainosus G43.719 [facility] [place] [id number] [place] [address] Jan, History of traumatic brain injury Z87.820 ; Anxiety F41.9 and Recurrent major depressive disorder, in partial remission F33.41 [place] [address] [address] 13 Jan, 2017 [facility] [address] [place] [id number] 07 Jan, 2017 History of traumatic brain injury Z87.820 and Obsessive-compulsive disorder, unspecified type F42.9 [place] [address] [address] 06 Jan, 2017 Traumatic brain injury, without LOC, initial encounter S06.9X0A ; Intractable chronic migraine without aura and without status migrainosus G43.719 ; Anxiety F41.9 and Recurrent major depressive disorder, in partial remission F33.41 [facility] [place] [address] [address] 05 Jan, 2017 History of traumatic brain injury Z87.820 ; Obsessive- compulsive disorder, unspecified type F42.9 ; Anxiety F41.9 and Recurrent major depressive disorder, in partial remission F33.41 [facility] [id number] [place] [address] [id number] Dec, [facility] [id number] [place] [address] [id number] Dec, Intractable chronic migraine without aura and without status migrainosus G43.719 [facility] [address] [place] [id number] Dec, Type 2 diabetes mellitus with unspecified complications E11.8 and Essential hypertension I10 [facility] [place] [address] [address] 18 Dec, 2016 Traumatic brain injury, without LOC, initial encounter S06.9X0A [facility] [place] [id number] [address] 16 Dec, 2016 Traumatic brain injury, without LOC, initial encounter S06.9X0A ; Intractable chronic migraine without aura and without status migrainosus G43.719 ; Anxiety F41.9 and Recurrent major depressive disorder, in partial remission F33.41 [facility] [place] [address] [address] 15 Dec, 2016 [facility] [place] [address] [place] [address] 11 Dec, 2016 History of traumatic brain injury Z87.820 ; Obsessive- compulsive disorder, unspecified type F42.9 ; Anxiety F41.9 and Recurrent major depressive disorder, in partial remission F33.41 [facility] [place] [id number] [address] Dec, Traumatic brain injury, without LOC, initial encounter S06.9X0A [facility] [place] [id number] [address] Dec, Anxiety F41.9 and Recurrent major depressive disorder, in partial remission F33.41 [facility] [place] [address] [place] [address] Dec, Traumatic brain injury, without LOC, initial encounter S06.9X0A ; Intractable chronic migraine without aura and without status migrainosus G43.719 ; Anxiety F41.9 and Recurrent major depressive disorder, in partial remission F33.41 [facility] [place] [address] [address] Dec, [facility] [id number] [place] [address] [id number] Nov, Intractable chronic migraine without aura and without status migrainosus G43.719 [facility] [address] [place] [id number] Nov, Obsessive-compulsive disorder, unspecified type F42.9 ; Anxiety F41.9 and Intractable chronic migraine without aura and without status migrainosus G43.719 [facility] [place] [id number] [address] Nov, Traumatic brain injury, without LOC, initial encounter S06.9X0A ; Intractable chronic migraine without aura and without status migrainosus G43.719 ; Anxiety F41.9 and Recurrent major depressive disorder, in partial remission F33.41 [facility] [id number] [place] [address] [id number] Nov, [facility] [place] [id number] [address] Nov, Anxiety F41.9 and Recurrent major depressive disorder, in partial remission F33.41 [facility] [place] [address] [address] Nov, [facility] [id number] [id number] Nov, [facility] [place] [address] [address] Oct, [facility] [place] [address] [place] [address] Oct, Anxiety F41.9 and Recurrent major depressive disorder, in partial remission F33.41 [facility] [place] [address] [address] Oct, [facility] [place] [address] [place] [address] September, Anxiety F41.9 and Recurrent major depressive disorder, in partial remission F33.41 [facility] [place] [address] [address] September, Traumatic brain injury, without LOC, initial encounter S06.9X0A ; Intractable chronic migraine without aura and without status migrainosus G43.719 ; Anxiety F41.9 and Recurrent major depressive disorder, in partial remission F33.41 [facility] [place] [address] [address] September, [facility] [place] [address] [address] September, Anxiety F41.9 [facility] [place] [id number] [address] September, [facility] [id number] [id number] September, Type 2 diabetes mellitus with unspecified complications E11.8 [facility] [id number] [id number] September, Type 2 diabetes mellitus with unspecified complications E11.8 [facility] [address] [place] [id number] September, Essential hypertension I10 and History of traumatic brain injury Z87.820 [facility] [place] [id number] [place] [address] Aug, [facility] [address] [place] [id number] Aug, Type 2 diabetes mellitus with unspecified complications E11.8 and Benign prostatic hyperplasia with lower urinary tract symptoms, unspecified morphology N40.1 [facility] [id number] [place] [address] [id number] Aug, [facility] [place] [id number] [place] [address]- [address] Aug, [facility] [place] [id number] [place] [address] [id number]- [address]339 Jul, Traumatic brain injury, without LOC, initial encounter S06.9X0A ; Intractable chronic migraine without aura and without status migrainosus G43.719 ; Anxiety F41.9 and Recurrent major depressive disorder, in partial remission F33.41 [facility] [place] [id number] [place] [address]- 1533 Jul, [facility] [place] [id number] [place] [address]- 0212 Jul, [facility] [id number] [place] [address] [id number] Jun, [facility] [place] [id number] [place] [address]- [address] Jun, [facility] [place] [address] [place] [address]- [address] Jun, [facility] [address] [place] [id number] Jun, Encounter to establish care Z76.89 [facility] [place] [id number] [place] [address] 978[address]90- 2644 Jun, [facility] [place] [id number] [place] [address]78- 5076 Jun, [facility] [address] [id number] [place] [address] Jun, [facility] [address] [facility] [id number] [address] Jun, [facility] [place] [address] [id number] [place] [id number] May, Dental examination Z01.20 [facility] [place] [address] [id number] [place] [id number] Dec, Dental examination Z01.20 [facility] [place] [address] [id number] [place] [id number] September, Dental examination Z01.20 [facility] [place] [address] [id number] [place] [id number] Dec, Dental examination V72.2 [facility] [address] [facility] [id number] [address] Aug, [facility] [id number] Aug, [facility] [id number] Apr, [facility] [place] [facility] [id number] [address] Nov, [facility] [place] [facility] [address] [facility] [id number] [place] Nov, [facility] [place] [facility] [address] [facility] [id number] Nov, [facility] [place] [facility] [address] [facility] [id number] [address] Nov, [facility] [place] [facility] [address] [facility] [id number] [address] Oct, [facility] [place] [facility] [id number] [address] May, [facility] [place] [address] [facility] [id number] [place] [address] May, IMMUNIZATIONS No Known Immunizations SOCIAL HISTORY [...]
--- OUTSIDE RECORDS SUMMARY | 2018-07-02 12:07 | XMS REPORT ---
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 Active 113879435 Problem Anxiety F41.9 Active 70363336 Problem Benign prostatic hyperplasia with lower urinary tract symptoms, unspecified morphology N40.1 Active 503764594 Problem Persistent migraine aura without cerebral infarction and without status migrainosus, not intractable G43.509 Active 467780454 Problem Intractable chronic migraine without aura and without status migrainosus G43.719 Active 718865160 Problem Type 2 diabetes mellitus with unspecified complications E11.8 Active 84104431 Problem 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 Active 49461944 Problem Chronic pain due to trauma G89.21 Active 303628476 Problem Recurrent major depressive disorder, in partial remission F33.41 Active 91825629 Problem Traumatic brain injury, without LOC, initial encounter S06.9X0A Active 352616286 Problem Rad (reactive airway disease), mild intermittent, uncomplicated J45.20 Active 095962021946 Problem Obsessive-compulsive disorder, unspecified type F42.9 Active 490207833 Problem History of traumatic brain injury Z87.820 Active 72721132127226 Problem Hyperlipidemia, unspecified hyperlipidemia type E78.5 Active 21687535 Problem Anemia, unspecified type D64.9 Active 309633721 Problem History of gout Z87.39 Active 502222464 Problem Glaucoma, unspecified glaucoma, unspecified laterality H40.9 Active 46837164 Problem Herpes B00.9 Active 74544946 Problem Weak urinary stream R39.12 Active 64221911 Problem Gastroesophageal reflux disease without esophagitis K21.9 Active 529848061 ALLERGIES No Information ENCOUNTERS Encounter Location Date Diagnosis [facility] [id number] [id number] September, [facility] [address] [address] Jul, Intractable chronic migraine without aura and without status migrainosus G43.719 [facility] [id number] [address] Jul, Intractable chronic migraine without aura and without status migrainosus G43.719 [facility] [address] [place] [id number] Jul, History of traumatic brain injury Z87.820 ; Recurrent major depressive disorder , in partial remission F33.41 and Type 2 diabetes mellitus with unspecified complications E11.8 [facility] [id number] [id number] Jul, [facility] [id number] [id number] Jul, Intractable chronic migraine without aura and without status migrainosus G43.719 [facility] [id number] [address] Jun, Anxiety F41.9 ; Traumatic brain injury, without LOC, initial encounter S06.9X0A ; Intractable chronic migraine without aura and without status migrainosus G43.719 and Recurrent major depressive disorder, in partial remission F33.41 [facility] [address] [id number] [id number] Jun, [facility] [id number] [address] Jun, [facility] [id number] [id number] Jun, Intractable chronic migraine without aura and without status migrainosus G43.719 [facility] [id number] [address] May, [facility] [address] [place] [id number] May, Recurrent major depressive disorder, in partial remission F33.41 ; Traumatic brain injury, without LOC, initial encounter S06.9X0A and Anxiety F41.9 [facility] [address] [place] [address] May, [facility] [id number] [id number] May, [facility] [id number] [place] [phone] May, Intractable chronic migraine without aura and without status migrainosus G43.719 [facility] [id number] [place] [phone] Apr, Anxiety F41.9 ; Traumatic brain injury, without LOC, initial encounter S06.9X0A ; Intractable chronic migraine without aura and without status migrainosus G43.719 and Recurrent major depressive disorder, in partial remission F33.41 [facility] [id number] [address] Apr, [facility] [id number] [place] [id number] Apr, Intractable chronic migraine without aura and without status migrainosus G43.719 [facility] [id number] [address] Apr, [facility] [id number] [place] [address] Apr, [facility] [id number] [id number] Mar, [facility] [id number] [place] [id number] Mar, [facility] [id number] [id number] Mar, [facility] [id number] [place] [address] Mar, Intractable chronic migraine without aura and without status migrainosus G43.719 [facility] [address] [place] [id number] Mar, Encounter for examination for admission to intermediate Z02.2 ; History of traumatic brain injury Z87.820 ; Recurrent major depressive disorder, in partial remission F33.41 ; Anxiety F41.9 ; Obsessive-compulsive disorder, unspecified type F42.9 ; Essential hypertension I10 and Type 2 diabetes mellitus with unspecified complications E11.8 [facility] [id number] [place] [id number] Feb, [place] [address] [address] Feb, Obsessive-compulsive disorder, unspecified type F42.9 ; Anxiety F41.9 and Recurrent major depressive disorder, in partial remission F33.41 [place] [id number] [place] [address] 27 Jan, 2017 Traumatic brain injury, without LOC, initial encounter S06.9X0A ; Intractable chronic migraine without aura and without status migrainosus G43.719 ; Anxiety F41.9 and Recurrent major depressive disorder, in partial remission F33.41 [place] [address] [place] [address] 20 Jan, 2017 Intractable chronic migraine without aura and without status migrainosus G43.719 [place] [address] [place] [address] Jan, History of traumatic brain injury Z87.820 ; Anxiety F41.9 and Recurrent major depressive disorder, in partial remission F33.41 [place] [id number] [place] [address] 13 Jan, 2017 [facility] [address] [place] [id number] 07 Jan, 2017 History of traumatic brain injury Z87.820 and Obsessive-compulsive disorder, unspecified type F42.9 [place] [address] [address] 06 Jan, 2017 Traumatic brain injury, without LOC, initial encounter S06.9X0A ; Intractable chronic migraine without aura and without status migrainosus G43.719 ; Anxiety F41.9 and Recurrent major depressive disorder, in partial remission F33.41 [facility] [address] [place] [address] 05 Jan, 2017 History of traumatic brain injury Z87.820 ; Obsessive- compulsive disorder, unspecified type F42.9 ; Anxiety F41.9 and Recurrent major depressive disorder, in partial remission F33.41 [facility] [id number] [place] [id number] 31 Dec, 2016 [facility] [id number] [place] [id number] 28 Dec, 2016 Intractable chronic migraine without aura and without status migrainosus G43.719 [facility] [address] [place] [id number] Dec, Type 2 diabetes mellitus with unspecified complications E11.8 and Essential hypertension I10 [facility] [address] [place] [address]- [address] 18 Dec, 2016 Traumatic brain injury, without LOC, initial encounter S06.9X0A [facility] [address] [place] [address]- [address] 16 Dec, 2016 Traumatic brain injury, without LOC, initial encounter S06.9X0A ; Intractable chronic migraine without aura and without status migrainosus G43.719 ; Anxiety F41.9 and Recurrent major depressive disorder, in partial remission F33.41 [facility] [id number] [place] [address] 6[address] 15 Dec, 2016 [facility] [id number] [place] [address] 11 Dec, 2016 History of traumatic brain injury Z87.820 ; Obsessive- compulsive disorder, unspecified type F42.9 ; Anxiety F41.9 and Recurrent major depressive disorder, in partial remission F33.41 [facility] [id number] [address] Dec, Traumatic brain injury, without LOC, initial encounter S06.9X0A [facility] [id number] [address] Dec, Anxiety F41.9 and Recurrent major depressive disorder, in partial remission F33.41 [facility] [address] [place] [address] 2767 Dec, Traumatic brain injury, without LOC, initial encounter S06.9X0A ; Intractable chronic migraine without aura and without status migrainosus G43.719 ; Anxiety F41.9 and Recurrent major depressive disorder, in partial remission F33.41 [facility] [address] [address] Dec, [facility] [id number] [place] [id number] Nov, Intractable chronic migraine without aura and without status migrainosus G43.719 [facility] [address] [place] [id number] Nov, Obsessive-compulsive disorder, unspecified type F42.9 ; Anxiety F41.9 and Intractable chronic migraine without aura and without status migrainosus G43.719 [facility] [id number] [address] Nov, Traumatic brain injury, without LOC, initial encounter S06.9X0A ; Intractable chronic migraine without aura and without status migrainosus G43.719 ; Anxiety F41.9 and Recurrent major depressive disorder, in partial remission F33.41 [facility] [id number] [place] [id number] Nov, [facility] [address] [address] Nov, Anxiety F41.9 and Recurrent major depressive disorder, in partial remission F33.41 [facility] [address] [address] Nov, [facility] [id number] [id number] Nov, [facility] [address] [address] Oct, [facility] [address] [address] Oct, Anxiety F41.9 and Recurrent major depressive disorder, in partial remission F33.41 [facility] [id number] [address] Oct, [facility] [address] [address] September, Anxiety F41.9 and Recurrent major depressive disorder, in partial remission F33.41 [facility] [address] [address] September, Traumatic brain injury, without LOC, initial encounter S06.9X0A ; Intractable chronic migraine without aura and without status migrainosus G43.719 ; Anxiety F41.9 and Recurrent major depressive disorder, in partial remission F33.41 [facility] [address] [address] September, [facility] [id number] [address] September, Anxiety F41.9 [facility] [id number] [address] September, [facility] [id number] [id number] September, Type 2 diabetes mellitus with unspecified complications E11.8 [facility] [id number] [id number] September, Type 2 diabetes mellitus with unspecified complications E11.8 [facility] [address] [place] [id number] September, Essential hypertension I10 and History of traumatic brain injury Z87.820 [facility] [address] [place] [address]26- 4321 Aug, [facility] [address] [place] [id number] Aug, Type 2 diabetes mellitus with unspecified complications E11.8 and Benign prostatic hyperplasia with lower urinary tract symptoms, unspecified morphology N40.1 [facility] [id number] [place] [id number] Aug, [facility] [id number] [place] [address] 6[address]39- 1318 Aug, [place] [id number] [place] [id number]- 3289 Jul, Traumatic brain injury, without LOC, initial encounter S06.9X0A ; Intractable chronic migraine without aura and without status migrainosus G43.719 ; Anxiety F41.9 and Recurrent major depressive disorder, in partial remission F33.41 [facility] [id number] [place] [address] 80718- 6183 Jul, [facility] [id number] [place] [address] 43647- 2062 Jul, [facility] [id number] [place] [address] [id number] Jun, [facility] [id number] [place] [address] 22724- 0049 Jun, [facility] [id number] [place] [address] 39476- 0572 Jun, [facility] [address] [place] [id number] Jun, Encounter to establish care Z76.89 [facility] [id number] [place] [address] 89272- 7730 Jun, [facility] [id number] [place] [address] 92868- 2546 Jun, [facility] [address] [facility] [id number] [place] [address] Jun, [facility] [address] [facility] [id number] [address] Jun, [facility] [place] [address] [id number] [place] [id number] May, Dental examination Z01.20 [facility] [place] [address] [id number] [place] [id number] Dec, Dental examination Z01.20 [facility] [place] [address] [id number] [place] [id number] September, Dental examination Z01.20 [facility] [place] [address] [id number] [place] [id number] Dec, Dental examination V72.2 [facility] [address] [facility] [id number] [place] [address] 2546 Aug, [facility] [address] [facility] [id number] [address] Aug, [facility] [address] [facility] [id number] [address] Apr, [facility] [address] [facility] [id number] [address] Nov, [facility] [place] [facility] [address] [facility] [id number] [address] Nov, [facility] [place] [facility] [address] [facility] [id number] [address]40 Nov, [facility] [place] [facility] [address] [facility] [id number] [address]- 30[address] Nov, [facility] [place] [facility] [address] [facility] [id number] [place] [address]- 2546 Oct, [facility] [place] [facility] [address] [facility] [id number] [place] [address] 39[address] May, [facility] [address] [facility] [id number] [place] [address] May, IMMUNIZATIONS No Known Immunizations SOCIAL HISTORY [...] diabetes mellitus with unspecified complications Medical History residential current use of insulin Medical 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 History left ankle Hospitalization History [facility]
--- OUTSIDE RECORDS SUMMARY | 2018-07-02 12:07 | XMS REPORT ---
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 Active 983984777 Problem Anxiety F41.9 Active 36158592 Problem Benign prostatic hyperplasia with lower urinary tract symptoms, unspecified morphology N40.1 Active 930663958 Problem Persistent migraine aura without cerebral infarction and without status migrainosus, not intractable G43.509 Active 080896507 Problem Intractable chronic migraine without aura and without status migrainosus G43.719 Active 884120805 Problem Type 2 diabetes mellitus with unspecified complications E11.8 Active 24991262 Problem 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 Active 50583722 Problem Chronic pain due to trauma G89.21 Active 188906559 Problem Recurrent major depressive disorder, in partial remission F33.41 Active 24441274 Problem Traumatic brain injury, without LOC, initial encounter S06.9X0A Active 052071515 Problem Rad (reactive airway disease), mild intermittent, uncomplicated J45.20 Active 620604886948 Problem Obsessive-compulsive disorder, unspecified type F42.9 Active 410185071 Problem History of traumatic brain injury Z87.820 Active 67881899402723 Problem Hyperlipidemia, unspecified hyperlipidemia type E78.5 Active 14178553 Problem Anemia, unspecified type D64.9 Active 217816688 Problem History of gout Z87.39 Active 239528689 Problem Glaucoma, unspecified glaucoma, unspecified laterality H40.9 Active 90890003 Problem Herpes B00.9 Active 32534365 Problem Weak urinary stream R39.12 Active 93015983 Problem Gastroesophageal reflux disease without esophagitis K21.9 Active 863539333 ALLERGIES No Information SOCIAL HISTORY Never Assessed PLAN OF CARE VITAL SIGNS MEDICATIONS Medication Instructions Dosage Frequency Start Date End Date Duration Status NovoLog Flexpen 100 UNIT/ML Subcutaneous before meals per sliding scale Active Amitiza 24 MCG Orally Twice a day 1 capsule with food 12h Active Topamax 25 MG Orally Twice a day 1 tablet 12h Active Travatan Z 0.004 % Ophthalmic Once a day 1 drop into affected eye in the evening 24h Active Topamax 25 MG Orally Twice a day 1 tablet 12h Jul, 30 day(s) Active Melatonin 3 MG Orally Once a day 2 tablets at bedtime as needed with food 24h Active Vitamin D 2000 UNIT Orally Once a day 1 tablet 24h Active Latuda 60 mg Orally Once a day 1 tablet with food 24h 30 days Active Allopurinol 300 MG Orally Once a day 1 tablet 24h Active Morphine Sulfate ER 30 MG Orally every 12 hrs 1 tablet 12h Aug, 28 days Active Effexor XR 75 MG Orally Once a day 1 capsule with food 24h 30 days Active Urecholine 25 MG Orally 3 times a day 1 tablet 8h Active Linzess 145 MCG Orally Once a day 1 capsule 24h Active Verapamil HCl CR 180 MG Orally twice a day 1 tablet 12h Active Loperamide HCl 2 MG Orally 8 time(s) a day 1 capsule Active Alfuzosin HCl ER 10 MG Orally Once a day 1 tablet immediately after the same meal 24h Active Insulin Detemir 100 UNIT/ML Subcutaneous at bedtime 20 units Active Systane 0.4-0.3 % Ophthalmic at bedtime 1 drop into both eyes Active MiraLax 17 gm/dose Orally Once a day 17 grams mixed in 8 oz of water or juice 24h Active Depakote Sprinkles 125 MG Orally 3 times a day 2 capsules 8h 30 days Active Fluticasone Propionate 50 MCG/ACT Nasally Once a day 1 spray in each nostril 24h Active Trazodone HCl 150 MG Orally Once a day 1 tablet at bedtime 24h 30 days Active Fluvoxamine Maleate 100 mg Orally twice a day 1 tablet 12h 30 days Active Flomax 0.8 mg Orally Once a day 1 capsule 24h Dec, 30 days Active RESULTS No Results PROCEDURES No Known procedures IMMUNIZATIONS No Known Immunizations MEDICAL (GENERAL) HISTORY Type Description Date Medical History History of traumatic brain injury Subdural hematoma from falling out of bed 2012 Medical History Type 2 diabetes mellitus with unspecified complications Medical History shelter current use of insulin Medical 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
--- OUTSIDE RECORDS SUMMARY | 2018-07-02 12:07 | XMS REPORT ---
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 Name Role Phone LIN WILLIAM Unavailable PROBLEMS Type Condition ICD9-CM Code [id number] Code Onset Dates Condition Status SNOMED Code Problem Essential hypertension I10 Active 20372086 Problem snf current use of insulin Z79.4 Active 253986483 Problem Anxiety F41.9 Active 75248727 Problem Benign prostatic hyperplasia with lower urinary tract symptoms, unspecified morphology N40.1 Active 759021497 Problem Persistent migraine aura without cerebral infarction and without status migrainosus, not intractable G43.509 Active 432350362 Problem Intractable chronic migraine without aura and without status migrainosus G43.719 Active 546947328 Problem Type 2 diabetes mellitus with unspecified complications E11.8 Active 27343231 Problem 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 Active 13023385 Problem Chronic pain due to trauma G89.21 Active 533603572 Problem Recurrent major depressive disorder, in partial remission F33.41 Active 31050506 Problem Traumatic brain injury, without LOC, initial encounter S06.9X0A Active 670439614 Problem Rad (reactive airway disease), mild intermittent, uncomplicated J45.20 Active 877723650541 Problem Obsessive-compulsive disorder, unspecified type F42.9 Active 919791923 Problem History of traumatic brain injury Z87.820 Active 81894756288656 Problem Hyperlipidemia, unspecified hyperlipidemia type E78.5 Active 54789205 Problem Anemia, unspecified type D64.9 Active 808118830 Problem History of gout Z87.39 Active 756142978 Problem Glaucoma, unspecified glaucoma, unspecified laterality H40.9 Active 34900763 Problem Herpes B00.9 Active 85121773 Problem Weak urinary stream R39.12 Active 16003876 Problem Gastroesophageal reflux disease without esophagitis K21.9 Active 222407777 ALLERGIES No Information SOCIAL HISTORY Never Assessed PLAN OF CARE Activity Details Follow Up 3 Weeks Reason: Follow-up VITAL SIGNS MEDICATIONS Unknown Medications RESULTS No Results PROCEDURES Procedure Date Ordered Result Body Site [facility] VISIT MENTAL HEALTH ESTAB PT October 21, 2016 Psych diagnostic evaluation, established patient October 21, 2016 visit needs to be added to the same day medical October 21, 2016 IMMUNIZATIONS No Known Immunizations MEDICAL (GENERAL) HISTORY Type Description Date Medical History History of traumatic brain injury Subdural hematoma from falling out of bed 2012 Medical History Type 2 diabetes mellitus with unspecified complications Medical History snf current use of insulin Medical 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
--- OUTSIDE RECORDS SUMMARY | 2018-07-02 12:08 | XMS REPORT ---
Author Author JEANNE GAMBOA [facility] Address [address] [place] [address] Care Team Providers Care Monitoring Engineer Name Role Phone COOPERJEANNE Unavailable PROBLEMS Type Condition ICD9-CM Code EXN34-WZ Code Onset Dates Condition Status SNOMED Code Problem Essential hypertension I10 Active 32380119 Problem senior care current use of insulin Z79.4 Active 437679032 Problem Anxiety F41.9 Active 75716505 Problem Benign prostatic hyperplasia with lower urinary tract symptoms, unspecified morphology N40.1 Active 224197044 Problem Persistent migraine aura without cerebral infarction and without status migrainosus, not intractable G43.509 Active 932152356 Problem Intractable chronic migraine without aura and without status migrainosus G43.719 Active 263152091 Problem Type 2 diabetes mellitus with unspecified complications E11.8 Active 78057054 Problem 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 Active 91485597 Problem Chronic pain due to trauma G89.21 Active 755616642 Problem Recurrent major depressive disorder, in partial remission F33.41 Active 35286881 Problem Traumatic brain injury, without LOC, initial encounter S06.9X0A Active 229246038 Problem Rad (reactive airway disease), mild intermittent, uncomplicated J45.20 Active 233678555412 Problem Obsessive-compulsive disorder, unspecified type F42.9 Active 116970895 Problem History of traumatic brain injury Z87.820 Active 20851885627762 Problem Hyperlipidemia, unspecified hyperlipidemia type E78.5 Active 95020334 Problem Anemia, unspecified type D64.9 Active 514889036 Problem History of gout Z87.39 Active 717175989 Problem Glaucoma, unspecified glaucoma, unspecified laterality H40.9 Active 05991292 Problem Herpes B00.9 Active 21977536 Problem Weak urinary stream R39.12 Active 69417307 Problem Gastroesophageal reflux disease without esophagitis K21.9 Active 073985038 ALLERGIES No Information ENCOUNTERS Encounter Location Date Diagnosis [facility] [address] [facility] [id number] [address] September, [facility] [address] [facility] [id number][place] [address] Aug, [facility] [address] [facility] [id number] [place] [id number] Aug, [facility] [address] [id number] [address] Aug, [facility] [address] [id number], [place] [address] Jul, Intractable chronic migraine without aura and without status migrainosus G43.719 [facility] [address] [id number], [place] [address] Jul, Intractable chronic migraine without aura and without status migrainosus G43.719 [facility] [address] [place] [id number] Jul, History of traumatic brain injury Z87.820 ; Recurrent major depressive disorder , in partial remission F33.41 and Type 2 diabetes mellitus with unspecified complications E11.8 [facility] [address] [id number] [id number] Jul, [facility] [id number][place] [id number] Jul, Intractable chronic migraine without aura and without status migrainosus G43.719 [facility] [address] [facility] [id number], [place] [address] Jun, Anxiety F41.9 ; Traumatic brain injury, without LOC, initial encounter S06.9X0A ; Intractable chronic migraine without aura and without status migrainosus G43.719 and Recurrent major depressive disorder, in partial remission F33.41 [facility] [address] [id number][place] [id number] 13 Jun, 2017 [facility] [address] [facility] [id number], [place] [address] Jun, [facility] [id number] [address] Jun, Intractable chronic migraine without aura and without status migrainosus G43.719 [facility] [address] [id number] [address] May, [facility] [address] [facility] [place] [id number] May, Recurrent major depressive disorder, in partial remission F33.41 ; Traumatic brain injury, without LOC, initial encounter S06.9X0A and Anxiety F41.9 [facility] [address]00565100[place], [place] [address] May, [facility] [address] [id number] [address] May, [facility] [address]00565100[place], [place] [address] May, Intractable chronic migraine without aura and without status migrainosus G43.719 [facility] [address] [id number] [address] Apr, Anxiety F41.9 ; Traumatic brain injury, without LOC, initial encounter S06.9X0A ; Intractable chronic migraine without aura and without status migrainosus G43.719 and Recurrent major depressive disorder, in partial remission F33.41 [facility] [address]00565100[place], [place] [address] Apr, [facility] [address] [id number] [address] Apr, Intractable chronic migraine without aura and without status migrainosus G43.719 [facility] [address]00565100[place], [place] [address] Apr, [facility] [address]65100[place] [address] Apr, [facility] [id number][place] [address] Mar, [facility] [address] [id number], [place] [address] Mar, [facility] [address] [id number] [address] Mar, [facility] [address]00565100[place], [place] [address] Mar, Intractable chronic migraine without aura and without status migrainosus G43.719 [facility] [address] [place] [address] Mar, Encounter for examination for admission to assisted Z02.2 ; History of traumatic brain injury Z87.820 ; Recurrent major depressive disorder, in partial remission F33.41 ; Anxiety F41.9 ; Obsessive-compulsive disorder, unspecified type F42.9 ; Essential hypertension I10 and Type 2 diabetes mellitus with unspecified complications E11.8 [facility] [id number][place] [id number] Feb, [facility] [address] [place] [address] 10 Feb, 2017 Obsessive-compulsive disorder, unspecified type F42.9 ; Anxiety F41.9 and Recurrent major depressive disorder, in partial remission F33.41 [facility] [address] [id number], [place] [address] 27 Jan, 2017 Traumatic brain injury, without LOC, initial encounter S06.9X0A ; Intractable chronic migraine without aura and without status migrainosus G43.719 ; Anxiety F41.9 and Recurrent major depressive disorder, in partial remission F33.41 [facility] [address] [id number], [place] [address] 20 Jan, 2017 Intractable chronic migraine without aura and without status migrainosus G43.719 [facility] [address] [id number], [place] [address] 19 Jan, 2017 History of traumatic brain injury Z87.820 ; Anxiety F41.9 and Recurrent major depressive disorder, in partial remission F33.41 [facility] [address] [id number], [place] [address] 13 Jan, 2017 [facility] [address] [address] 07 Jan, 2017 History of traumatic brain injury Z87.820 and Obsessive-compulsive disorder, unspecified type F42.9 [facility] [address] [id number], [place] [address] 06 Jan, 2017 Traumatic brain injury, without LOC, initial encounter S06.9X0A ; Intractable chronic migraine without aura and without status migrainosus G43.719 ; Anxiety F41.9 and Recurrent major depressive disorder, in partial remission F33.41 [facility] [address]00565100[place], [place] [address] 05 Jan, 2017 History of traumatic brain injury Z87.820 ; Obsessive- compulsive disorder, unspecified type F42.9 ; Anxiety F41.9 and Recurrent major depressive disorder, in partial remission F33.41 [facility] [id number] [address] Dec, [facility] [id number] [place] [id number] Dec, Intractable chronic migraine without aura and without status migrainosus G43.719 [facility] [address] [address] Dec, Type 2 diabetes mellitus with unspecified complications E11.8 and Essential hypertension I10 [facility] [address] [id number], [place] [address] Dec, Traumatic brain injury, without LOC, initial encounter S06.9X0A [facility] [address]00565100[place], [place] [address] 16 Dec, 2016 Traumatic brain injury, without LOC, initial encounter S06.9X0A ; Intractable chronic migraine without aura and without status migrainosus G43.719 ; Anxiety F41.9 and Recurrent major depressive disorder, in partial remission F33.41 [facility] [address]00565100[place], [place] [address] Dec, [facility] [address] [place] [address] Dec, History of traumatic brain injury Z87.820 ; Obsessive- compulsive disorder, unspecified type F42.9 ; Anxiety F41.9 and Recurrent major depressive disorder, in partial remission F33.41 [facility] [id number] [place] [address] 09 Dec, 2016 Traumatic brain injury, without LOC, initial encounter S06.9X0A [facility] [address] [place] [address] 03 Dec, 2016 Anxiety F41.9 and Recurrent major depressive disorder, in partial remission F33.41 [facility] [address] [place] [address] 02 Dec, 2016 Traumatic brain injury, without LOC, initial encounter S06.9X0A ; Intractable chronic migraine without aura and without status migrainosus G43.719 ; Anxiety F41.9 and Recurrent major depressive disorder, in partial remission F33.41 [facility] [address] [place] [address] Dec, [facility] [id number] [place] [id number] Nov, Intractable chronic migraine without aura and without status migrainosus G43.719 [facility] [address] [address] Nov, Obsessive-compulsive disorder, unspecified type F42.9 ; Anxiety F41.9 and Intractable chronic migraine without aura and without status migrainosus G43.719 [facility] [address] [place] [address] Nov, Traumatic brain injury, without LOC, initial encounter S06.9X0A ; Intractable chronic migraine without aura and without status migrainosus G43.719 ; Anxiety F41.9 and Recurrent major depressive disorder, in partial remission F33.41 [facility] [address] [id number] [id number] Nov, [facility] [address] [facility] [id number], [place] [address] Nov, Anxiety F41.9 and Recurrent major depressive disorder, in partial remission F33.41 [facility] [address] [id number], [place] [address] Nov, [facility] [address] [id number] [id number] Nov, [facility] [address] [id number], [place] [address] Oct, [facility] [address] [id number], [place] [address] Oct, Anxiety F41.9 and Recurrent major depressive disorder, in partial remission F33.41 [facility] [address]00565100[place], [place] [address] Oct, [facility] [address] [id number], [place] [address] September, Anxiety F41.9 and Recurrent major depressive disorder, in partial remission F33.41 [facility] [address] [id number], [place] [address] September, Traumatic brain injury, without LOC, initial encounter S06.9X0A ; Intractable chronic migraine without aura and without status migrainosus G43.719 ; Anxiety F41.9 and Recurrent major depressive disorder, in partial remission F33.41 [facility] [address] [facility] [id number], [place] [address] September, [facility] [address] [id number], [place] [address] September, Anxiety F41.9 [facility] [address] [id number], [place] [address] September, [facility] [id number] [address] September, Type 2 diabetes mellitus with unspecified complications E11.8 [facility] [address] [id number] [address] September, Type 2 diabetes mellitus with unspecified complications E11.8 [facility] [address] [address] September, Essential hypertension I10 and History of traumatic brain injury Z87.820 [facility] [address]00565100[place], [place] [address] Aug, [facility] [address] [address] Aug, Type 2 diabetes mellitus with unspecified complications E11.8 and Benign prostatic hyperplasia with lower urinary tract symptoms, unspecified morphology N40.1 [facility] [address] [id number] [address] Aug, [address]65100[place] [address] Aug, [address]65100[place] [address] Jul, Traumatic brain injury, without LOC, initial encounter S06.9X0A ; Intractable chronic migraine without aura and without status migrainosus G43.719 ; Anxiety F41.9 and Recurrent major depressive disorder, in partial remission F33.41 [address] [address]00565100[place], [place] [address] Jul, [address] [place] [address]100[place] [address] Jul, [facility] [id number] [place] [id number] Jun, [address] [place] [address]65100[place] [address] Jun, [address] [place] [address]65100[place] [address] Jun, [facility] [address] [id number] Jun, Encounter to establish care Z76.89 [facility] [address] [facility] [id number], [place] [address] Jun, [facility] [address] [id number], [place] [address] 2546 Jun, [facility] [address] [id number], [place] [address] 2546 Jun, [facility] [address] [id number], [place] [address] Jun, [facility] [place] [address] [id number] [place] [id number] May, Dental examination Z01.20 [facility] [place] [address] [id number] [place] [id number] Dec, Dental examination Z01.20 [facility] [place] [address] [id number] [place] [id number] September, Dental examination Z01.20 [facility] [place] [address] [id number] [place] [id number] Dec, Dental examination V72.2 [facility] [address] [id number], [place] [address] Aug, [facility] [address] [id number], [place] [address]- [address] Aug, [facility] [address] [id number], [place] [address] Apr, [facility] [address] [id number], [place] [address]- [address] Nov, [facility] [address] [id number], [place] [address]- 9[address] Nov, [facility] [address] [id number], [place] [address]- [address] Nov, [facility] [address] [facility] [id number], [place] [address]- [address] Nov, [facility] [address] [facility] [id number], [place] [address]- [address] Oct, [facility] [address] [facility] [id number], [place] [address] May, [facility] [address] [facility] [id number], [place] [address] May, IMMUNIZATIONS No Known Immunizations SOCIAL HISTORY Never Assessed REASON FOR VISIT f/u CBrumbackRN PLAN OF CARE Activity Details Follow Up 4 Weeks Reason: VITAL SIGNS Height 72.0 in 2017-01-27 Weight 195.4 lbs 2017-01-27 Heart Rate 72 bpm 2017-01-27 Respiratory Rate 16 2017-01-27 BMI 26.50 kg/m2 2017-01-27 Blood pressure systolic 132 mmHg 2017-01-27 Blood pressure diastolic 70 mmHg 2017-01-27 MEDICATIONS Medication Instructions Dosage Frequency Start Date End Date Duration Status Melatonin 3 MG Orally Once a day 2 tablets at bedtime as needed with food 24h Active Zyprexa Zydis 5 mg Orally QHS 1 tablet on the tongue and allow to dissolve 30 day(s) Active Travatan Z 0.004 % Ophthalmic Once a day 1 drop into affected eye in the evening 24h Active Loperamide HCl 2 MG Orally 8 time(s) a day 1 capsule Active Zyprexa 5 mg Orally Once a day 1 tablet 24h Dec, 14 days Active Allopurinol 300 MG Orally Once a day 1 tablet 24h Active Urecholine 25 MG Orally 3 times a day 1 tablet 8h Active Latuda 60 mg Orally Once a day 1 tablet with food 24h 30 days Active Trazodone HCl 150 MG Orally Once a day 1 tablet at bedtime 24h 30 days Active Timolol Maleate 0.5 % Ophthalmic twice a day 1 drop into danielle eyes 12h Active Fluvoxamine Maleate 25 MG Orally Twice a day 1 tablet (give with 100mg tablet) 12h 30 day(s) Active Verapamil HCl ER 180 MG Orally twice a day 1 tablet 12h Active Effexor XR 75 MG Orally Once a day 1 capsule with food 24h 30 days Active Systane 0.4-0.3 % Ophthalmic at bedtime 1 drop into both eyes Active Fluvoxamine Maleate 100 mg Orally Twice a day 1 tablet 12h 30 day(s) Active Morphine Sulfate ER 15 mg Orally Once a day at bedtime 1 tablet Dec, 30 days Active Linzess 145 MCG Orally Once a day 1 capsule 24h Active MiraLax 17 gm/dose Orally Once a day 17 grams mixed in 8 oz of water or juice 24h Active Topamax 25 MG Orally Twice a day 1 tablet 12h 30 day(s) Active Nuedexta 20-10 MG Orally every 12 hrs 1 capsule 12h 30 day(s) Active Depakote Sprinkles 125 MG Orally 3 times a day 4 capsules 8h 30 days Active Flomax 0.4 MG Orally Once a day 2 capsules 24h Active Vitamin D 2000 UNIT Orally Once a day 1 tablet 24h Active RESULTS No Results PROCEDURES Procedure Date Ordered Result Body Site [facility] VISIT ESTABLISHED PATIENT Jan 27, 2017 INSTRUCTIONS MEDICATIONS ADMINISTERED No Known Medications [...] elbow Hospitalization History left ankle Hospitalization History [facility]
--- OUTSIDE RECORDS SUMMARY | 2018-07-02 12:08 | XMS REPORT ---
Author Author NICK FONSECA Organization [facility] Address [address] [place] [address] Care Team Providers Care Dough Mixer Name Role Phone NICK FONSECA Unavailable PROBLEMS Type Condition ICD9-CM Code BBQ74-EP Code Onset Dates Condition Status SNOMED Code Problem Essential hypertension I10 Active 90901851 Problem crossbar switch adjuster current use of insulin Z79.4 Active 620279285 Problem Anxiety F41.9 Active 21521277 Problem Benign prostatic hyperplasia with lower urinary tract symptoms, unspecified morphology N40.1 Active 539700804 Problem Persistent migraine aura without cerebral infarction and without status migrainosus, not intractable G43.509 Active 632491150 Problem Intractable chronic migraine without aura and without status migrainosus G43.719 Active 446932755 Problem Type 2 diabetes mellitus with unspecified complications E11.8 Active 74182621 Problem 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 Active 49246821 Problem Chronic pain due to trauma G89.21 Active 101602396 Problem Recurrent major depressive disorder, in partial remission F33.41 Active 79209346 Problem Traumatic brain injury, without LOC, initial encounter S06.9X0A Active 437728998 Problem Rad (reactive airway disease), mild intermittent, uncomplicated J45.20 Active 972873191902 Problem Obsessive-compulsive disorder, unspecified type F42.9 Active 555139065 Problem History of traumatic brain injury Z87.820 Active 06623539760301 Problem Hyperlipidemia, unspecified hyperlipidemia type E78.5 Active 39538820 Problem Anemia, unspecified type D64.9 Active 524539233 Problem History of gout Z87.39 Active 027236785 Problem Glaucoma, unspecified glaucoma, unspecified laterality H40.9 Active 87761934 Problem Herpes B00.9 Active 33644849 Problem Weak urinary stream R39.12 Active 29846589 Problem Gastroesophageal reflux disease without esophagitis K21.9 Active 654519639 ALLERGIES No Information SOCIAL HISTORY Never Assessed PLAN OF CARE VITAL SIGNS MEDICATIONS Unknown Medications RESULTS No Results PROCEDURES No Known procedures IMMUNIZATIONS No Known Immunizations MEDICAL (GENERAL) HISTORY Type Description Date Medical History History of traumatic brain injury Subdural hematoma from falling out of bed 2012 Medical History Type 2 diabetes mellitus with unspecified complications Medical History crossbar switch adjuster current use of insulin Medical 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
--- OUTSIDE RECORDS SUMMARY | 2018-07-02 12:09 | XMS REPORT ---
Author Author KILO EID Organization [employer] Address Unknown Phone Unavailable Care Team Providers Care Strike Operations Officer Name Role Phone KILO EID CP Unavailable Allergies, Adverse Reactions, Alerts Substance Reaction Event Type Penicillin V Potassium Info Not Available Drug Allergy Problems Problem Type Condition Code Onset Dates Condition Status Assessment Dental examination Z01.20 Active Problem Dental examination V72.2 Active Medications Medication Code System Code Instructions Start Date End Date Status Dosage Levemir [facility] [address]-69 Jun 09, 2013 by subcutaneous route Clonazepam [facility] [address]-87 Jun 09, 2013 by oral route NovoLog [facility] [address]-29 Jun 09, 2013 by subcutaneous route Vitamin D [facility] [address]-69 not defined Trazodone HCl [facility] [address]-88 not defined Allopurinol [facility] [address]-68 Jun 09, 2013 by oral route verapamil ND 0 Jun 09, 2013 by oral route Amitiza [facility] [address]-72 not defined Travatan Z [facility] [address]-37 Jun 09, 2013 by ophthalmic route Morphine Sulfate [facility] [address]-86 30 MG Orally BID not defined alfuzosin ND 0 Jun 09, 2013 by oral route [place] 3 [facility] [address]261 1 G Orally Once a day 4 caps Latuda [facility] [address]-64 not defined fluvoxamine ND 0 Jun 09, 2013 by oral route Procedures Procedure Coding System Code Date AMALGAM-TWO SURFACES PRIMARY/PERM CPT-4 D2150 Jan 14, 2016 Vital Signs Date/Time: Jan 14, 2016 Blood Pressure Diastolic 87 mmHg Blood Pressure Systolic 160 mmHg Results No Known Results Summary Purpose [employer] Submission
--- OUTSIDE RECORDS SUMMARY | 2018-07-02 12:09 | XMS REPORT ---
Author Author NICK FONSECA Organization [facility] Address [address] [place] [address] Care Team Providers Care Merchandising Execution Associate Name Role Phone NICK FONSECA Unavailable PROBLEMS Type Condition ICD9-CM Code UWN63-RN Code Onset Dates Condition Status SNOMED Code Problem Essential hypertension I10 Active 59973715 Problem skilled nursing current use of insulin Z79.4 Active 784935440 Problem Anxiety F41.9 Active 84040778 Problem Benign prostatic hyperplasia with lower urinary tract symptoms, unspecified morphology N40.1 Active 362546053 Problem Persistent migraine aura without cerebral infarction and without status migrainosus, not intractable G43.509 Active 837269871 Problem Intractable chronic migraine without aura and without status migrainosus G43.719 Active 371287385 Problem Type 2 diabetes mellitus with unspecified complications E11.8 Active 02846830 Problem 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 Active 58535577 Problem Chronic pain due to trauma G89.21 Active 281692437 Problem Recurrent major depressive disorder, in partial remission F33.41 Active 55227681 Problem Traumatic brain injury, without LOC, initial encounter S06.9X0A Active 449184911 Problem Rad (reactive airway disease), mild intermittent, uncomplicated J45.20 Active 224271033148 Problem Obsessive-compulsive disorder, unspecified type F42.9 Active 148656630 Problem History of traumatic brain injury Z87.820 Active 39449532332040 Problem Hyperlipidemia, unspecified hyperlipidemia type E78.5 Active 52230522 Problem Anemia, unspecified type D64.9 Active 969786443 Problem History of gout Z87.39 Active 202721222 Problem Glaucoma, unspecified glaucoma, unspecified laterality H40.9 Active 07890412 Problem Herpes B00.9 Active 93672071 Problem Weak urinary stream R39.12 Active 53422347 Problem Gastroesophageal reflux disease without esophagitis K21.9 Active 295720526 ALLERGIES No Information ENCOUNTERS Encounter Location Date Diagnosis [facility] [address] [facility] [id number] [id number] September, [facility] [id number], [place] [address] Aug, [facility] [address] [facility] [id number] [place] [id number] Aug, [facility] [address], [place] [address] Aug, [facility] [id number], [place] [address] Jul, Intractable chronic migraine without aura and without status migrainosus G43.719 [facility] [id number], [place] [address] Jul, Intractable chronic migraine without aura and without status migrainosus G43.719 [facility] [address] [place] [id number] Jul, History of traumatic brain injury Z87.820 ; Recurrent major depressive disorder , in partial remission F33.41 and Type 2 diabetes mellitus with unspecified complications E11.8 [facility] [id number] [id number] Jul, [facility] [id number][place] [id number] Jul, Intractable chronic migraine without aura and without status migrainosus G43.719 [facility] [id number] [address] Jun, Anxiety F41.9 ; Traumatic brain injury, without LOC, initial encounter S06.9X0A ; Intractable chronic migraine without aura and without status migrainosus G43.719 and Recurrent major depressive disorder, in partial remission F33.41 [facility] [address] [id number] [id number] 13 Jun, 2017 [facility] [id number] [address] Jun, [facility] [address] [facility] [address] [id number] [address] Jun, Intractable chronic migraine without aura and without status migrainosus G43.719 [facility] [address] [facility] [id number], [place] [address] May, [facility] [address] [place] [id number] May, Recurrent major depressive disorder, in partial remission F33.41 ; Traumatic brain injury, without LOC, initial encounter S06.9X0A and Anxiety F41.9 [facility] [id number], [place] [address] May, [facility] [address] [facility] [address] [id number] [id number] May, [facility] [address] [id number], [place] [address] May, Intractable chronic migraine without aura and without status migrainosus G43.719 [facility] [address] [id number], [place] [address] Apr, Anxiety F41.9 ; Traumatic brain injury, without LOC, initial encounter S06.9X0A ; Intractable chronic migraine without aura and without status migrainosus G43.719 and Recurrent major depressive disorder, in partial remission F33.41 [facility] [address] [id number], [place] [address] Apr, [facility] [address] [facility] [address] [id number] [id number] Apr, Intractable chronic migraine without aura and without status migrainosus G43.719 [facility] [id number], [place] [address] Apr, [facility] [address] [id number] [address] Apr, [facility] [address] [facility] [address] [id number] [id number] Mar, [facility] [id number], [place] [address] Mar, [facility] [id number], [place] [id number] Mar, [facility] [address] [id number], [place] [address] Mar, Intractable chronic migraine without aura and without status migrainosus G43.719 [facility] [address] [place] [id number] 09 Mar, 2017 Encounter for examination for admission to alf Z02.2 ; History of traumatic brain injury Z87.820 ; Recurrent major depressive disorder, in partial remission F33.41 ; Anxiety F41.9 ; Obsessive-compulsive disorder, unspecified type F42.9 ; Essential hypertension I10 and Type 2 diabetes mellitus with unspecified complications E11.8 [facility] [id number] [id number] Feb, [facility] [id number], [place] [address] 10 Feb, 2017 Obsessive-compulsive disorder, unspecified type F42.9 ; Anxiety F41.9 and Recurrent major depressive disorder, in partial remission F33.41 [facility] [address] [id number], [place] [address] 27 Jan, 2017 Traumatic brain injury, without LOC, initial encounter S06.9X0A ; Intractable chronic migraine without aura and without status migrainosus G43.719 ; Anxiety F41.9 and Recurrent major depressive disorder, in partial remission F33.41 [facility] [address] [id number], [place] [address] 20 Jan, 2017 Intractable chronic migraine without aura and without status migrainosus G43.719 [facility] [id number] [address] 19 Jan, 2017 History of traumatic brain injury Z87.820 ; Anxiety F41.9 and Recurrent major depressive disorder, in partial remission F33.41 [facility] [address] [id number], [place] [address] 13 Jan, 2017 [facility] [address] [place] [id number] 07 Jan, 2017 History of traumatic brain injury Z87.820 and Obsessive-compulsive disorder, unspecified type F42.9 [facility] [address] [place] [address] 06 Jan, 2017 Traumatic brain injury, without LOC, initial encounter S06.9X0A ; Intractable chronic migraine without aura and without status migrainosus G43.719 ; Anxiety F41.9 and Recurrent major depressive disorder, in partial remission F33.41 [facility] [address], [place] [address] 05 Jan, 2017 History of traumatic brain injury Z87.820 ; Obsessive- compulsive disorder, unspecified type F42.9 ; Anxiety F41.9 and Recurrent major depressive disorder, in partial remission F33.41 [facility] [id number], [place] [address] Dec, [facility] [id number] [place] [id number] Dec, Intractable chronic migraine without aura and without status migrainosus G43.719 [facility] [address] [place] [id number] Dec, Type 2 diabetes mellitus with unspecified complications E11.8 and Essential hypertension I10 [facility] [id number] [place] [address] Dec, Traumatic brain injury, without LOC, initial encounter S06.9X0A [facility] [address] [place] [address] 16 Dec, 2016 Traumatic brain injury, without LOC, initial encounter S06.9X0A ; Intractable chronic migraine without aura and without status migrainosus G43.719 ; Anxiety F41.9 and Recurrent major depressive disorder, in partial remission F33.41 [facility] [address], [place] [address] Dec, [facility] [address] [place] [address] Dec, History of traumatic brain injury Z87.820 ; Obsessive- compulsive disorder, unspecified type F42.9 ; Anxiety F41.9 and Recurrent major depressive disorder, in partial remission F33.41 [place] [facility] [address] [place] [address] Dec, Traumatic brain injury, without LOC, initial encounter S06.9X0A [place] [address] [place] [address] Dec, Anxiety F41.9 and Recurrent major depressive disorder, in partial remission F33.41 [place] [address], [place] [address] Dec, Traumatic brain injury, without LOC, initial encounter S06.9X0A ; Intractable chronic migraine without aura and without status migrainosus G43.719 ; Anxiety F41.9 and Recurrent major depressive disorder, in partial remission F33.41 [place] [place] [address], [place] [address] Dec, [facility] [id number] [place] [id number] Nov, Intractable chronic migraine without aura and without status migrainosus G43.719 [facility] [address] [place] [address] Nov, Obsessive-compulsive disorder, unspecified type F42.9 ; Anxiety F41.9 and Intractable chronic migraine without aura and without status migrainosus G43.719 [place] [address], [place] [address] Nov, Traumatic brain injury, without LOC, initial encounter S06.9X0A ; Intractable chronic migraine without aura and without status migrainosus G43.719 ; Anxiety F41.9 and Recurrent major depressive disorder, in partial remission F33.41 [facility] [address] [id number] [id number] Nov, [facility] [id number], [place] [address] Nov, Anxiety F41.9 and Recurrent major depressive disorder, in partial remission F33.41 [facility] [address]00565[address], [place] [address] Nov, [facility] [address] [id number] [id number] Nov, [facility] [id number], [place] [address] Oct, [facility] [id number], [place] [address] Oct, Anxiety F41.9 and Recurrent major depressive disorder, in partial remission F33.41 [facility] [address], [place] [address] Oct, [facility] [id number], [place] [address] September, Anxiety F41.9 and Recurrent major depressive disorder, in partial remission F33.41 [facility] [id number], [place] [address] September, Traumatic brain injury, without LOC, initial encounter S06.9X0A ; Intractable chronic migraine without aura and without status migrainosus G43.719 ; Anxiety F41.9 and Recurrent major depressive disorder, in partial remission F33.41 [facility] [id number], [place] [address] September, [facility] [id number], [place] [address] September, Anxiety F41.9 [facility] [id number], [place] [address] September, [facility] [id number] [id number] September, Type 2 diabetes mellitus with unspecified complications E11.8 [facility] [id number][place] [address] September, Type 2 diabetes mellitus with unspecified complications E11.8 [facility] [address] [place] [address] September, Essential hypertension I10 and History of traumatic brain injury Z87.820 [facility] [address], [place] [address] Aug, [facility] [address] [place] [id number] Aug, Type 2 diabetes mellitus with unspecified complications E11.8 and Benign prostatic hyperplasia with lower urinary tract symptoms, unspecified morphology N40.1 [facility] [id number], [place] [id number] Aug, [facility] [address] [address] Aug, [facility] [address] [address] Jul, Traumatic brain injury, without LOC, initial encounter S06.9X0A ; Intractable chronic migraine without aura and without status migrainosus G43.719 ; Anxiety F41.9 and Recurrent major depressive disorder, in partial remission F33.41 [facility] [address] [address] Jul, [facility] [id number] [address] Jul, [facility] [address] [id number] [id number] Jun, [facility] [id number] [address] Jun, [facility] [address] [address] Jun, [facility] [address] [place] [id number] Jun, Encounter to establish care Z76.89 [facility] [address] [facility] [id number], [place] [address] Jun, [facility] [address] [facility] [id number], [place] [address] 2546 Jun, [facility] [id number], [place] [address] 2546 Jun, [facility] [id number], [place] [address] Jun, [facility] [address] [id number] [place] [id number] May, [facility] Z01.20 [facility] [place] [address] [id number] [place] [id number] Dec, Dental examination Z01.20 [facility] [place] [address] [id number] [place] [id number] September, Dental examination Z01.20 [facility] [place] [address] [id number] [place] [id number] Dec, Dental examination V72.2 [facility] [id number], [place] [address] Aug, [facility] [id number], [place] [address] Aug, [facility] [id number], [place] [address] Apr, [facility] [id number], [place] [address] Nov, [facility] [id number], [place] [address] Nov, [facility] [id number], [place] [address]6 Nov, [facility] [address] [facility] [id number] [place] [address]- [address] Nov, [facility] [address] [facility] [id number], [place] [address]- [address] Oct, [facility] [address] [facility] [id number], [place] [address]- [address] May, [facility] [address] [facility] [id number], [place] [address] May, IMMUNIZATIONS No Known Immunizations SOCIAL HISTORY Never Assessed REASON FOR VISIT Refill request PLAN OF CARE VITAL SIGNS MEDICATIONS Medication Instructions Dosage Frequency Start Date End Date Duration Status Morphine Sulfate ER 15 mg Orally Once a day at bedtime 1 tablet Jan, 30 days Active RESULTS No Results PROCEDURES [...] elbow Hospitalization History left ankle Hospitalization History [facility]
--- OUTSIDE RECORDS SUMMARY | 2018-07-02 12:11 | XMS REPORT | Clinical Summary ---
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 TABLET 2 Q 6 hr. PRN ACETAMINOPHEN [id number] No Longer Active Maliheh Ziglari COMMUNITY SERVICE DIRECTOR Active ORPHENADRINE CITRATE ER 100 MG ORAL TABLET EXTENDED RELEASE 12 HOUR 1 every 12 hr. as needed ORPHENADRINE CITRATE [id number] No Longer Active Alina Castaneda MD PhD Active NIACIN ER 500 MG ORAL TABLET EXTENDED RELEASE 2 qHS NIACIN 44354291381 No Longer Active Alina Castaneda MD PhD Active AMOXICILLIN 500 MG ORAL CAPSULE 2 po BID x 10 days AMOXICILLIN 48347241604 No Longer Active Alina Castaneda MD PhD Active HYDROCODONE-ACETAMINOPHEN 7.5-325 MG ORAL TABLET 1 four times a day as needed for pain HYDROCODONE-ACETAMINOPHEN 50423333811 No Longer Active Alina Castaneda MD PhD Active DOXEPIN HCL 10 MG ORAL CAPSULE Take 1 tablet by mouth daily DOXEPIN HCL 17235632123 No Longer Active Salina Han [facility] Active NAVANE 10 MG CAPS 1/2 tablet twice a day THIOTHIXENE No Longer Active Salina Emely [facility] Active CYCLOBENZAPRINE HCL 10 MG ORAL TABLET 1/2 tablet by mouth every 8 hours as needed for muscle spasms CYCLOBENZAPRINE HCL 60561445046 No Longer Active Alina Castaneda MD PhD Active BACTROBAN 2 % EXTERNAL CREAM apply to ear and nose twice daily MUPIROCIN CALCIUM 81671269290 No Longer Active Alina Castaneda MD PhD Active HYDROCODONE-ACETAMINOPHEN 5-325 MG ORAL TABLET take one tablet by mouth every four hours as needed for pain HYDROCODONE-ACETAMINOPHEN 04639855668 No Longer Active Alina Castaneda MD PhD Active ZYPREXA 5 MG ORAL TABLET take one tablet by mouth every evening OLANZAPINE 66586388329 No Longer Active Alina Castaneda MD PhD Active ALBUTEROL SULFATE (2.5 MG/3ML) 0.083% INHALATION NEBULIZATION SOLUTION one vial per nebulizer TID and PRN cough/soa ALBUTEROL SULFATE 67597206031 No Longer Active Alina Castaneda MD PhD Active GUAIFENESIN ER 600 MG ORAL TABLET EXTENDED RELEASE 12 HOUR 1 tablet by mouth twice daily if needed for cough GUAIFENESIN 22615097026 No Longer Active Marvel MARROQUIN Active AZITHROMYCIN 500 MG INTRAVENOUS SOLUTION RECONSTITUTED 1 po q day AZITHROMYCIN 58902422968 No Longer Active Alina Castaneda MD PhD Active PROMETHAZINE-CODEINE 6.25-10 MG/5ML ORAL SYRUP 1 tsp po q 6 hours prn cough PROMETHAZINE-CODEINE 87297908185 No Longer Active Alina Castaneda MD PhD Active CEFDINIR 300 MG ORAL CAPSULE by mouth twice a day CEFDINIR 98546830216 No Longer Active Alina Castaneda MD PhD Active METFORMIN HCL ER 500 MG ORAL TABLET EXTENDED RELEASE 24 HOUR Take 3 tablets by mouth everyday METFORMIN HCL 74247460356 No Longer Active Alina Castaneda MD PhD Active LEVEMIR 100 UNIT/ML SUBCUTANEOUS SOLUTION 90 units SQ qHS INSULIN DETEMIR 44207380333 No Longer Active Marvel MARROQUIN Active TOPROL XL 100 MG ORAL TABLET EXTENDED RELEASE 24 HOUR 1 @ HS METOPROLOL SUCCINATE 46501712657 No Longer Active Marvel MARROQUIN Active ALLOPURINOL 300 MG ORAL TABLET Take one by mouth daily ALLOPURINOL 15005903097 Active Mima Erazo MAMMOGRAPHER Active ZYPREXA 10 MG ORAL TABLET Take one by mouth daily OLANZAPINE 80418143983 No Longer Active Alina Castaneda MD PhD Active NOVOLOG 100 UNIT/ML SUBCUTANEOUS SOLUTION 40 units with every meal INSULIN ASPART 56533086710 No Longer Active Alina Castaneda MD PhD Active VERAPAMIL HCL ER 120 MG ORAL TABLET EXTENDED RELEASE 1 qPM 09/08 VERAPAMIL HCL 25229200402 No Longer Active Salina ROJAS Active ZYPREXA 15 MG ORAL TABLET Take 1 tablet by mouth daily OLANZAPINE 79493264907 No Longer Active Marvel MARROQUIN Active ALBUTEROL SULFATE (2.5 MG/3ML) 0.083% INHALATION NEBULIZATION SOLUTION 1 neb tid and prn cough ALBUTEROL SULFATE 74284053464 No Longer Active Alina Castaneda MD PhD Active LANTUS 100 UNIT/ML SUBCUTANEOUS SOLUTION 60 units sq q hs INSULIN GLARGINE 61517897617 No Longer Active CRYSTAL Suarez Active ALBUTEROL SULFATE (2.5 MG/3ML) 0.083% INHALATION NEBULIZATION SOLUTION 1 neb tid and prn cough ALBUTEROL SULFATE (2.5 MG/3ML) 0.083% INHALATION NEBULIZATION SOLUTION 580011 ALBUTEROL SULFATE Inactive ZYPREXA 15 MG ORAL TABLET Take 1 tablet by mouth daily ZYPREXA 15 MG ORAL TABLET 905222 OLANZAPINE Inactive VERAPAMIL HCL ER 120 MG ORAL TABLET EXTENDED RELEASE 1 qPM 09/08 VERAPAMIL HCL ER 120 MG ORAL TABLET EXTENDED RELEASE VERAPAMIL HCL Inactive ZYPREXA 10 MG ORAL TABLET Take one by mouth daily ZYPREXA 10 MG ORAL TABLET 597209 OLANZAPINE Inactive TOPROL XL 100 MG ORAL TABLET EXTENDED RELEASE 24 HOUR 1 @ HS TOPROL XL 100 MG ORAL TABLET EXTENDED RELEASE 24 HOUR METOPROLOL SUCCINATE Inactive LEVEMIR 100 UNIT/ML SUBCUTANEOUS SOLUTION 90 units SQ qHS LEVEMIR 100 UNIT/ML SUBCUTANEOUS SOLUTION INSULIN DETEMIR Inactive PROMETHAZINE-CODEINE 6.25-10 MG/5ML ORAL SYRUP 1 tsp po q 6 hours prn cough PROMETHAZINE-CODEINE 6.25-10 MG/5ML ORAL SYRUP 123818 PROMETHAZINE-CODEINE Inactive GUAIFENESIN ER 600 MG ORAL TABLET EXTENDED RELEASE 12 HOUR 1 tablet by mouth twice daily if needed for cough GUAIFENESIN ER 600 MG ORAL TABLET EXTENDED RELEASE 12 HOUR GUAIFENESIN Inactive ALBUTEROL SULFATE (2.5 MG/3ML) 0.083% INHALATION NEBULIZATION SOLUTION one vial per nebulizer TID and PRN cough/soa ALBUTEROL SULFATE (2.5 MG/3ML) 0.083% INHALATION NEBULIZATION SOLUTION 657819 ALBUTEROL SULFATE Inactive ZYPREXA 5 MG ORAL TABLET take one tablet by mouth every evening ZYPREXA 5 MG ORAL TABLET 182888 OLANZAPINE Inactive HYDROCODONE-ACETAMINOPHEN 5-325 MG ORAL TABLET take one tablet by mouth every four hours as needed for pain HYDROCODONE-ACETAMINOPHEN 5-325 MG ORAL TABLET 219419 HYDROCODONE-ACETAMINOPHEN Inactive BACTROBAN 2 % EXTERNAL CREAM apply to ear and nose twice daily BACTROBAN 2 % EXTERNAL CREAM 357114 MUPIROCIN CALCIUM Inactive CYCLOBENZAPRINE HCL 10 MG ORAL TABLET 1/2 tablet by mouth every 8 hours as needed for muscle spasms CYCLOBENZAPRINE HCL 10 MG ORAL TABLET 889228 CYCLOBENZAPRINE HCL Inactive NAVANE 10 MG CAPS 1/2 tablet twice a day NAVANE 10 MG CAPS THIOTHIXENE Inactive DOXEPIN HCL 10 MG ORAL CAPSULE Take 1 tablet by mouth daily DOXEPIN HCL 10 MG ORAL CAPSULE 7436826 DOXEPIN HCL Inactive HYDROCODONE-ACETAMINOPHEN 7.5-325 MG ORAL TABLET 1 four times a day as needed for pain HYDROCODONE-ACETAMINOPHEN 7.5-325 MG ORAL TABLET 579457 HYDROCODONE-ACETAMINOPHEN Inactive NIACIN ER 500 MG ORAL TABLET EXTENDED RELEASE 2 qHS NIACIN ER 500 MG ORAL TABLET EXTENDED RELEASE NIACIN Inactive ORPHENADRINE CITRATE ER 100 MG ORAL TABLET EXTENDED RELEASE 12 HOUR 1 every 12 hr. as needed ORPHENADRINE CITRATE ER 100 MG ORAL TABLET EXTENDED RELEASE 12 HOUR ORPHENADRINE CITRATE Inactive ACETAMINOPHEN 500 MG ORAL TABLET 2 Q 6 hr. PRN ACETAMINOPHEN 500 MG ORAL TABLET 392043 ACETAMINOPHEN Inactive SAPHRIS 5 MG SUBLINGUAL TABLET SUBLINGUAL by mouth twice a day SAPHRIS 5 MG SUBLINGUAL TABLET SUBLINGUAL ASENAPINE MALEATE Inactive NIACIN ER 500 MG ORAL TABLET EXTENDED RELEASE 4 qHS (for triglycerides) 01/13 NIACIN ER 500 MG ORAL TABLET EXTENDED RELEASE NIACIN Inactive IBUPROFEN 200 MG ORAL TABLET 1 Q 6 hr. PRN IBUPROFEN 200 MG ORAL TABLET 739075 IBUPROFEN Inactive FLUTICASONE PROPIONATE 50 MCG/ACT NASAL SUSPENSION 2 sprays each nostril qDay x 30 days FLUTICASONE PROPIONATE 50 MCG/ACT NASAL SUSPENSION 4243137 FLUTICASONE PROPIONATE Inactive EQL TRUETEST TEST IN VITRO STRIP Test blood sugar TID EQL TRUETEST TEST IN VITRO STRIP GLUCOSE BLOOD Inactive TERESE CONTOUR TEST IN VITRO STRIP monitor blood sugars 3x/day TERESE CONTOUR TEST IN VITRO STRIP GLUCOSE BLOOD Inactive DETROL LA 4 MG ORAL CAPSULE EXTENDED RELEASE 24 HOUR Take 1 tablet by mouth daily DETROL LA 4 MG ORAL CAPSULE EXTENDED RELEASE 24 HOUR TOLTERODINE TARTRATE Inactive ZYPREXA 7.5 MG ORAL TABLET 1 at HS ZYPREXA 7.5 MG ORAL TABLET 752189 OLANZAPINE Inactive THIOTHIXENE 5 MG ORAL CAPSULE by mouth twice a day THIOTHIXENE 5 MG ORAL CAPSULE 359576 THIOTHIXENE Inactive UROXATRAL 10 MG ORAL TABLET EXTENDED RELEASE 24 HOUR Take 1 tablet by mouth daily UROXATRAL 10 MG ORAL TABLET EXTENDED RELEASE 24 HOUR ALFUZOSIN HCL Inactive ACYCLOVIR 400 MG ORAL TABLET 1 pill three times daily x 5 days, for cold sore outbreak ACYCLOVIR 400 MG ORAL TABLET 698745 ACYCLOVIR Inactive TRUETEST TEST IN VITRO STRIP check sugars 4x/day TRUETEST TEST IN VITRO STRIP GLUCOSE BLOOD Inactive HUMALOG 100 UNIT/ML SUBCUTANEOUS SOLUTION Take 20 units with breakfast, 10u with lunch and suppetr. HUMALOG 100 UNIT/ML SUBCUTANEOUS SOLUTION INSULIN LISPRO (HUMAN) Inactive CYCLOBENZAPRINE HCL 10 MG ORAL TABLET 1 tablet by mouth three times daily, scheduled CYCLOBENZAPRINE HCL 10 MG ORAL TABLET 268236 CYCLOBENZAPRINE HCL Inactive ACCU-CHEK ROSA IN VITRO STRIP use strips with device to check blood sugars 3 times daily ACCU-CHEK ROSA IN VITRO STRIP GLUCOSE BLOOD Inactive ACCU-CHEK ROSA DEVICE Use device to check blood sugars ACCU-CHEK ROSA DEVICE BLOOD GLUCOSE MONITORING SUPPL Inactive FLUVOXAMINE MALEATE 100 MG ORAL TABLET Take 1/2 tab at noon 03/04 FLUVOXAMINE MALEATE 100 MG ORAL TABLET 934274 FLUVOXAMINE MALEATE Inactive FLUVOXAMINE MALEATE 100 MG ORAL TABLET Take one (1) tablet by mouth am, 1/2 at noon FLUVOXAMINE MALEATE 100 MG ORAL TABLET 480383 FLUVOXAMINE MALEATE Inactive BACTROBAN 2 % EXTERNAL CREAM Apply to affected area BID for up to 10 days BACTROBAN 2 % EXTERNAL CREAM 990132 MUPIROCIN CALCIUM Inactive NOVOFINE 32G X 6 MM use one four times per day NOVOFINE 32G X 6 MM INSULIN PEN NEEDLE Inactive TRAZODONE HCL 100 MG ORAL TABLET 1 tab by mouth for sleep TRAZODONE HCL 100 MG ORAL TABLET 451315 TRAZODONE HCL Inactive LOVAZA 1 GM ORAL CAPSULE 4 daily (for triglycerides) LOVAZA 1 GM ORAL CAPSULE 303847 [id number] ETHYL ESTERS Inactive METFORMIN HCL ER 500 MG ORAL TABLET EXTENDED RELEASE 24 HOUR Take three tablets by mouth everyday METFORMIN HCL ER 500 MG ORAL TABLET EXTENDED RELEASE 24 HOUR METFORMIN HCL Inactive METOPROLOL SUCCINATE ER 100 MG ORAL TABLET EXTENDED RELEASE 24 HOUR 1 by mouth daily for blood pressure METOPROLOL SUCCINATE ER 100 MG ORAL TABLET EXTENDED RELEASE 24 HOUR METOPROLOL SUCCINATE Inactive AMITIZA 24 MCG ORAL CAPSULE Take one capsule BID for constipation. AMITIZA 24 MCG ORAL CAPSULE LUBIPROSTONE Inactive TOLTERODINE TARTRATE 2 MG ORAL TABLET 1 pill twice daily, for bladder TOLTERODINE TARTRATE 2 MG ORAL TABLET 633420 TOLTERODINE TARTRATE Inactive COLACE 100 MG ORAL CAPSULE 1 pill by mouth twice daily, for constipation 2014 COLACE 100 MG ORAL CAPSULE 6150381 DOCUSATE SODIUM Inactive LOMOTIL 2.5-0.025 MG ORAL TABLET take 1-2 tabs PO after each stool, no more than 8 in 24 hours LOMOTIL 2.5-0.025 MG ORAL TABLET 2317814 DIPHENOXYLATE-ATROPINE Inactive ZOFRAN 4 MG ORAL TABLET 1 po q4hr PRN Nausea ZOFRAN 4 MG ORAL TABLET 546693 ONDANSETRON HCL Inactive HYDROCODONE-ACETAMINOPHEN 5-325 MG ORAL TABLET 2 tabs by mouth three times daily for pain HYDROCODONE-ACETAMINOPHEN 5-325 MG ORAL TABLET 015417 HYDROCODONE-ACETAMINOPHEN Inactive ZOLPIDEM TARTRATE 10 MG ORAL TABLET take at bedtime ZOLPIDEM TARTRATE 10 MG ORAL TABLET 640633 ZOLPIDEM TARTRATE Inactive LISINOPRIL 20 MG ORAL TABLET 1 BID LISINOPRIL 20 MG ORAL TABLET 501514 LISINOPRIL Inactive TRAVATAN Z 0.004 % OPHTHALMIC SOLUTION 1 gtt each eye daily TRAVATAN Z 0.004 % OPHTHALMIC SOLUTION TRAVOPROST Inactive LATUDA 60 MG ORAL TABLET Take one by mouth daily LATUDA 60 MG ORAL TABLET LURASIDONE HCL Inactive FLUVOXAMINE MALEATE 50 MG ORAL TABLET 1 tab by mouth daily 04/01 FLUVOXAMINE MALEATE 50 MG ORAL TABLET 427692 FLUVOXAMINE MALEATE Inactive LEVEMIR FLEXTOUCH 100 UNIT/ML SUBCUTANEOUS SOLUTION PEN-INJECTOR 60 units SQ each evening, for diabetes LEVEMIR FLEXTOUCH 100 UNIT/ ML SUBCUTANEOUS SOLUTION PEN-INJECTOR INSULIN DETEMIR Inactive BD INSULIN SYRINGE 28G X 1/2" 1 ML 1 four times per day BD INSULIN SYRINGE 28G X 1/2" 1 ML INSULIN SYRINGE-NEEDLE U-100 Inactive ALFUZOSIN HCL ER 10 MG ORAL TABLET EXTENDED RELEASE 24 HOUR 1 tablet daily ALFUZOSIN HCL ER 10 MG ORAL TABLET EXTENDED RELEASE 24 HOUR ALFUZOSIN HCL Inactive TRUETEST TEST IN VITRO STRIP check blood sugars 3x/day TRUETEST TEST IN VITRO STRIP GLUCOSE BLOOD Inactive HUMALOG KWIKPEN 100 UNIT/ML SUBCUTANEOUS SOLUTION PEN-INJECTOR sliding scale if needed HUMALOG KWIKPEN 100 UNIT/ML SUBCUTANEOUS SOLUTION PEN- INJECTOR INSULIN LISPRO (HUMAN) Inactive OMEGA-3 300 MG ORAL CAPSULE 4 caps by mouth daily OMEGA-3 300 MG ORAL CAPSULE OMEGA-3 FATTY ACIDS Inactive CORICIDIN HBP CONGESTION/COUGH 10-200 MG ORAL CAPSULE Take as directed on box as needed for cold/flu symptoms CORICIDIN HBP CONGESTION/COUGH 10-200 MG ORAL CAPSULE DEXTROMETHORPHAN-GUAIFENESIN Inactive TRUEPLUS LANCETS 30G 3 a day TRUEPLUS LANCETS 30G [id number] LANCETS Inactive AMITIZA 24 MCG ORAL CAPSULE Take one capsule BID for constipation AMITIZA 24 MCG ORAL CAPSULE LUBIPROSTONE Inactive BD PEN NEEDLE MINI U/F 31G X 5 MM 4 a day BD PEN NEEDLE MINI U/F 31G X 5 MM INSULIN PEN NEEDLE Inactive FLUVOXAMINE MALEATE 100 MG ORAL TABLET take one tab every AM et HS, and take 1 /2 tab at noon FLUVOXAMINE MALEATE 100 MG ORAL TABLET 075355 FLUVOXAMINE MALEATE Inactive FLONASE ALLERGY RELIEF 50 MCG/ACT NASAL SUSPENSION One spray each nostril BID x 1 week then daily FLONASE ALLERGY RELIEF 50 MCG/ACT NASAL SUSPENSION 0897577 FLUTICASONE PROPIONATE Inactive IMODIUM A-D 2 MG ORAL TABLET 1 tab QID as needed IMODIUM A-D 2 MG ORAL TABLET 617262 LOPERAMIDE HCL Inactive MYLANTA GAS RELIEF MAXIMUM STR 125 MG ORAL CAPSULE 30cc every 4 hours prn MYLANTA GAS RELIEF MAXIMUM STR 125 MG ORAL CAPSULE SIMETHICONE Inactive TRUEPLUS LANCETS 30G 3x a day TRUEPLUS LANCETS 30G [id number] LANCETS Inactive TRUE METRIX BLOOD GLUCOSE TEST IN VITRO STRIP Check blood sugars 3x/day. 2015 TRUE METRIX BLOOD GLUCOSE TEST IN VITRO STRIP GLUCOSE BLOOD Inactive MORPHINE SULFATE ER 30 MG ORAL TABLET EXTENDED RELEASE Take one capsule BID MORPHINE SULFATE ER 30 MG ORAL TABLET EXTENDED RELEASE MORPHINE SULFATE Inactive LATUDA 60 MG ORAL TABLET 1 tab daily LATUDA 60 MG ORAL TABLET LURASIDONE HCL Inactive TRAVATAN Z 0.004 % OPHTHALMIC SOLUTION 1 drop each eye daily 2017 TRAVATAN Z 0.004 % OPHTHALMIC SOLUTION TRAVOPROST Inactive TRAZODONE HCL 100 MG ORAL TABLET 1 every night to prevent headaches TRAZODONE HCL 100 MG ORAL TABLET 385535 TRAZODONE HCL Inactive TYLENOL 8 HOUR 650 MG ORAL TABLET EXTENDED RELEASE 1 tab QID prn TYLENOL 8 HOUR 650 MG ORAL TABLET EXTENDED RELEASE ACETAMINOPHEN Inactive [facility] DROPS 0.4-0.3 % OPHTHALMIC SOLUTION [facility] LU[facility] EYE DROPS 0.4-0.3 % OPHTHALMIC SOLUTION POLYETHYL GLYCOL- PROPYL GLYCOL Inactive VITAMIN D 2000 UNIT ORAL CAPSULE Take one by mouth daily VITAMIN D 2000 UNIT ORAL CAPSULE CHOLECALCIFEROL Inactive TAMSULOSIN HCL 0.4 MG ORAL CAPSULE give 2 capsules PO each evening TAMSULOSIN HCL 0.4 MG ORAL CAPSULE 592887 TAMSULOSIN HCL Inactive [facility] MELATONIN 3 MG ORAL TABLET give 1 tab by mouth at HS [facility] MELATONIN 3 MG ORAL TABLET 546229 MELATONIN Inactive SEROQUEL 100 MG ORAL TABLET 1 tab daily SEROQUEL 100 MG ORAL TABLET 236999 QUETIAPINE FUMARATE Inactive AMARYL 2 MG ORAL TABLET give 2.5 tabs PO daily AMARYL 2 MG ORAL TABLET 358980 GLIMEPIRIDE Inactive SEROQUEL 25 MG ORAL TABLET Take two tabs by mouth in the morning, take 4 tablets at night SEROQUEL 25 MG ORAL TABLET 500650 QUETIAPINE FUMARATE Inactive CEFDINIR 300 MG ORAL CAPSULE by mouth twice a day CEFDINIR 300 MG ORAL CAPSULE 907214 CEFDINIR Inactive AZITHROMYCIN 500 MG INTRAVENOUS SOLUTION RECONSTITUTED 1 po q day AZITHROMYCIN 500 MG INTRAVENOUS SOLUTION RECONSTITUTED 21024646848 AZITHROMYCIN Inactive AMOXICILLIN 500 MG ORAL CAPSULE 2 po BID x 10 days AMOXICILLIN 500 MG ORAL CAPSULE 037030 AMOXICILLIN Inactive PENICILLIN V POTASSIUM 500 MG ORAL TABLET 1 pill by mouth three times daily PENICILLIN V POTASSIUM 500 MG ORAL TABLET 127553 PENICILLIN V POTASSIUM Inactive KEFLEX 500 MG ORAL CAPSULE 1 po BID x 7 days KEFLEX 500 MG ORAL CAPSULE 001026 CEPHALEXIN Inactive Immunizations Vaccine Administration Date Value Standard Description influenza immunization (Flu Vax) has been administered Done according to patient influenza virus vaccine, unspecified formulation influenza immunization (Flu Vax) has been administered 02/22/2014 influenza virus vaccine, unspecified formulation influenza immunization (Flu Vax) has been administered 02/17/2013 influenza virus vaccine, unspecified formulation pneumococcal immunization administered Pneumovax 23 [CVX33] pneumococcal polysaccharide vaccine, 23 valent pneumococcal immunization administered 04/05/1996 pneumococcal polysaccharide vaccine, 23 valent influenza immunization (Flu Vax) has been administered 02/23/2012 influenza virus vaccine, unspecified formulation Seasonal influenza vaccine, injectable, containing preservative, for > 3 years old (Afluria, FluLaval, Fluzone, Fluvirin, Fluarix, Agriflu(>=18 yo)) Fluzone (>3 yrs.) [[id number]] Influenza, seasonal, injectable pneumococcal immunization administered Pneumovax 23 [CVX33] pneumococcal polysaccharide vaccine, 23 valent Vital Signs Date Name Value Unit Range Description blood pressure, diastolic, repeated by physician 69 BP garcia blood pressure, diastolic 69 mm[Hg] BP garcia blood pressure, systolic, repeated by physician 116 BP sys blood pressure, systolic 116 mm[Hg] BP sys height E&M 70 [in_us] Bdy height pulse rate E&M 77 /min Heart rate respiratory rate E&M 18 /min Resp rate temperature E&M 98.1 [degF] Body temperature weight E&M 218.20 [lb_av] Weight Measured blood pressure, diastolic 72 mm[Hg] BP garcia blood pressure, systolic 112 mm[Hg] BP sys height E&M 70 [in_us] Bdy height pulse rate E&M 90 /min Heart rate respiratory rate E&M 20 /min Resp rate temperature E&M 97.9 [degF] Body temperature blood pressure, diastolic, repeated by physician 84 BP garcia blood pressure, diastolic 84 mm[Hg] BP garcia blood pressure, systolic, repeated by physician 158 BP sys blood pressure, systolic 158 mm[Hg] BP sys height E&M 70 [in_us] Bdy height pulse rate E&M 89 /min Heart rate temperature E&M 97.2 [degF] Body temperature weight E&M 211 [lb_av] Weight Measured blood pressure, diastolic, repeated by physician 83 BP garcia blood pressure, diastolic 83 mm[Hg] BP garcia blood pressure, systolic, repeated by physician 141 BP sys blood pressure, systolic 141 mm[Hg] BP sys height E&M 70 [in_us] Bdy height pulse rate E&M 93 /min Heart rate temperature E&M 98.8 [degF] Body temperature weight E&M 216.50 [lb_av] Weight Measured blood pressure, diastolic, repeated by physician 93 BP garcia blood pressure, diastolic 93 mm[Hg] BP garcia blood pressure, systolic, repeated by physician 149 BP sys blood pressure, systolic 149 mm[Hg] BP sys height E&M 70 [in_us] Bdy height pulse rate E&M 60 /min Heart rate temperature E&M 98.0 [degF] Body temperature weight E&M 219.80 [lb_av] Weight Measured Diagnostic Results Date Name Value Unit Range Description Lab Report: CBC, Comp. Metabolic Panel, MICROALB/CREAT W/RATIO, Lipid Pa ... - Chemistry sodium, serum 135 mmol/L 136-917 7136/08/22 carbon dioxide, venous blood 28.4 mmol/L 21.0-32.0 potassium, serum 4.1 mmol/L 3.5-5.2 chloride, serum 98 mmol/L 98-107 blood glucose 235 mg/dL 65-95 urea nitrogen, blood 9 mg/dL 7-18 creatinine, serum 0.73 mg/dL 0.60-1.30 alanine aminotransferase (SGPT), serum 71 U/L 12-78 aspartate aminotransferase (SGOT), serum 28 U/L 15-37 alkaline phosphatase, serum 54 U/L 50-136 calcium, serum 9.2 mg/dL 8.5-10.1 bilirubin, serum, total 0.30 mg/dL 0.00-1.00 albumin/creatinine ratio, urine >300 mg/g High Abnormal mg/g mg/g {creat} 0-29 cholesterol, serum 263 mg/dL 343-510 7852/08/22 triglyceride, serum, fasting 1312 mg/dL 30-200 HDL cholesterol, serum 21 mg/dL 32-60 LDL cholesterol, serum -20 mg/dL 0-130 hemoglobin A1C, blood, as % of total hemoglobin 7.4 % 4.3-6.0 prostate specific antigen 0.69 ng/mL 0.00-4.00 Lab Report: CBC, Comp. Metabolic Panel, MICROALB/CREAT W/RATIO, Lipid Pa ... - Hematology mean corpuscular volume, RBC 87 fL 80-97 hematocrit, blood 51.2 % 40.0-54.0 hemoglobin, blood 16.6 g/dL 14.0-18.0 erythrocyte (RBC) count 5.86 10^6/MM^3 10*6/mm3 4.50-6.50 leukocyte count, blood 8.4 10^3/MM^3 10*3/mm3 4.6-10.2 mean corpuscular hemoglobin, RBC 28.4 pg 27.0-31.2 mean corpuscular hemoglobin concentration, RBC 32.4 G/DL % 31.8- 35.4 red blood cell distribution width 12.7 % 11.6-14.8 platelet count 307 10^3/MM^3 10*3/mm3 142-424 Lab Report: CBC, Comp. Metabolic Panel, MICROALB/CREAT W/RATIO, Lipid Pa ... - Lab microalbumin, urine 80 mg/L 0-19 Office Visit: TCM from custodial - Lab PSA (prostate specific antigent), recommendation and action PSA ordered Encounters Code Encounter Date Provider Facility CPT-86745 [id number] Vst-Est Level III 11:00:25 CDT Shavonne Feliciano PA-C [facility] CPT-72652 Level 3 Est. Patient 09:12:14 GRAVITY PROSPECTING OBSERVER Mima Erazo [facility] CPT-63220 Level 3 Est. Patient 16:52:51 CDT Vanessa Hickey MD [facility] CPT-33500 Level 3 Est. Patient 17:40:16 CDT Mima Erazo [facility] CPT-01577 Level 3 Est. Patient 14:34:52 CDT Vanessa Hickey MD [facility] CPT-45746 Level 3 Est. Patient 16:27:51 CDT Mima Erazo [facility] CPT-95439 Level 3 Est. Patient 14:39:00 GRAVITY PROSPECTING OBSERVER Vanessa Hickey MD [facility] CPT-39145 Level 2 Est. Patient 18:43:34 CDT Mima Erazo [facility] CPT-63511 Level 3 Est. Patient 16:22:09 CDT Cherelle Avila [facility] CPT-11205 Level 4 Est. Patient 17:55:14 CDT Mima Erazo [facility] CPT-27059 Level 2 Est. Patient 17:13:21 CDT Alina Castaneda MD [facility] CPT-01957 Level 3 Est. Patient 14:46:15 CDT Vanessa Hickey MD [facility]-41339 Level 3 Est. Patient 09:34:56 CDT Alina Castaneda MD [facility]-65757 Level 3 Est. Patient 21:40:19 CDT Mima Erazo [facility] CPT-72032 Level 3 Est. Patient 09:26:40 CDT Marvel Charles [facility]-00755 Level 3 Est. Patient 12:36:43 CDT Vanessa Hickey MD [facility]-95644 Level 3 Est. Patient 12:57:49 CDT Vanessa Hickey MD [facility]-13504 Level 3 Est. Patient 00:28:25 CDT Alina Castaneda MD [facility]-47934 Level 2 Est. Patient 12:52:14 CDT Alina Castaneda MD [facility]55940 Level 3 Est. Patient 11:51:18 GRAVITY PROSPECTING OBSERVER Alina Castaneda MD [facility] CPT-55358 Level 3 Est. Patient 10:09:22 GRAVITY PROSPECTING OBSERVER Alina Castaneda MD [facility]-52781 Level 3 Est. Patient 14:36:26 GRAVITY PROSPECTING OBSERVER Marvel [facility] CPT-89459 Level 3 Est. Patient 13:34:47 GRAVITY PROSPECTING OBSERVER Alina Castaneda MD [facility] [place]-[address]122 Level 3 Est. Patient 19:52:08 GRAVITY PROSPECTING OBSERVER Alina Castaneda MD [facility] CPT-39498 Level 3 Est. Patient 10:01:51 GRAVITY PROSPECTING OBSERVER Marvel Charles [facility]-99439 Level 3 Est. Patient 21:54:06 CDT Vanessa Hickey MD [facility]-89686 Level 3 Est. Patient 08:54:46 CDT Alina Castaneda MD [facility]83818 Level 3 Est. Patient 09:32:11 CDT Marvel Charles [facility]-47714 Level 3 Est. Patient 12:02:49 CDT Alina Castaneda MD PhD [facility]85899 Level 3 Est. Patient 19:17:33 CDT Alina Castaneda MD [facility]58755 Level 3 Est. Patient 13:19:10 [facility]-80057 Level 3 Est. Patient 08:20:05 CDT Alina Castaneda MD [facility]48465 Level 3 Est. Patient 15:17:18 CDT Alina Castaneda MD [facility]12111 Level 3 Est. Patient 14:25:36 GRAVITY PROSPECTING OBSERVER Marvel Charles [facility]-97421 Level 3 Est. Patient 10:09:15 GRAVITY PROSPECTING OBSERVER Marvel Charles [facility]-73331 Level 3 Est. Patient 21:28:43 CDT Alina Castaneda MD PhD [facility]-35260 Level 3 Est. Patient 15:20:11 CDT Marvel Charles [facility]-42461 Level 4 Est. Patient 19:08:12 CDT Alina Castaneda MD [facility]84408 Level 3 Est. Patient 15:06:39 CDT Marvel Charles [facility]-54075 Level 4 Est. Patient 17:48:15 CDT Alina Castaneda MD [facility] [place] [facility] [place]406 Level 3 Est. Patient 14:53:49 CDT Alina Castaneda MD [facility] [place] [facility] [place]87666 Level 3 Est. Patient 09:35:16 CDT Alina Castaneda MD [facility] [place] [facility] [place]-81831 Level 3 Est. Patient 12:23:22 CDT Alina Castaneda MD [facility] [place] [facility] [place]-25251 Level 3 Est. Patient 16:19:15 CDT Alina Castaneda MD [facility] [place] [facility] [place]-38057 Level 3 Est. Patient 21:39:56 GRAVITY PROSPECTING OBSERVER Alina Castaneda MD [facility] [place] [facility] [place]43908 Level 4 Est. Patient 14:12:56 GRAVITY PROSPECTING OBSERVER Alina Castaneda MD [facility] [place] [facility] [place]-58373 Level 2 Est. Patient 15:34:57 GRAVITY PROSPECTING OBSERVER Alina Castaneda MD [facility] [place] [facility] [place]-26008 Level 3 Est. Patient 12:17:04 GRAVITY PROSPECTING OBSERVER Alina Castaenda MD [facility] [place] [facility] [place]-50435 Level 3 Est. Patient 09:18:18 GRAVITY PROSPECTING OBSERVER Marvel Charles [facility]-50663 Level 2 Est. Patient 21:50:24 CDT Alina Castaneda MD [facility] [place] [facility] [place]-72535 Level 3 Est. Patient 09:17:28 CDT Marvel Charles [facility]-79662 Level 4 Est. Patient 18:54:02 CDT Alina Castaneda MD [facility] [place] [facility] [place]-76579 Level 3 Est. Patient 10:47:10 CDT Alina Castaneda MD [facility] CPT-63744 Level 3 Est. Patient 09:22:20 CDT [facility] CPT-19094 Level 3 Est. Patient 16:39:43 [facility] 3 Est. Patient 16:05:16 CDT Alina Castaneda MD [facility] CPT-58141 Level 3 Est. Patient 00:29:15 CDT Alina Castaneda MD [facility] [place] [facility] [place]-89676 Level 3 Est. Patient 10:49:22 GRAVITY PROSPECTING OBSERVER [facility] CPT-29905 Level 3 Est. Patient 21:30:19 GRAVITY PROSPECTING OBSERVER Alina Castaneda MD [facility] CPT-45870 Level 4 Est. Patient 17:04:11 GRAVITY PROSPECTING OBSERVER [facility] Level 3 Est. Patient 15:34:11 GRAVITY PROSPECTING OBSERVER [facility] CPT-61473 Level 2 Est. Patient 12:51:58 GRAVITY PROSPECTING OBSERVER Alina Castaneda MD [facility] CPT-68275 Level 3 Est. Patient 13:20:01 GRAVITY PROSPECTING OBSERVER Alina Castaneda MD [facility] CPT-62382 Level 3 Est. Patient 09:23:35 CDT Alina Castaneda MD PhD [facility] Procedures Code Procedure Name Date Entry Date Standard Description CPT-G0439 [facility] Annual Wellness Exam 15:49:52 GRAVITY PROSPECTING OBSERVER CPT-19008 Level 3 Alf 13:20:19 CDT CPT-TCMM Transitional Care Mgmt-Moderate 12:32:19 CDT CPT-75758 Level 2 Alf 09:01:11 CDT CPT-89812 HGBA1C - LAB USE ONLY 09:30:27 GRAVITY PROSPECTING OBSERVER CPT-28265 BMP - LAB USE ONLY 09:30:27 GRAVITY PROSPECTING OBSERVER CPT-03361 Venipuncture Draw Fee 09:30:26 GRAVITY PROSPECTING OBSERVER CPT-TCMM Transitional Care Mgmt-Moderate 10:25:31 CDT CPT-34180 Bladder Scan 14:34:53 CDT CPT-16484 Bladder Scan 14:39:01 GRAVITY PROSPECTING OBSERVER CPT-TCMM Transitional Care Mgmt-Moderate 10:30:19 GRAVITY PROSPECTING OBSERVER CPT-65202 Bladder Scan 12:36:44 CDT CPT-70827 Bladder Scan 21:54:06 CDT CPT-G0008 Administration of Influenza Virus Vaccine 13:05:26 CDT CPT-97035 Fluzone Quadrivalent Intramuscular Suspension 0.5 ML 13: 05:26 CDT CPT-64814 Administration single or combination vaccine inc oral 11 :49:51 CDT CPT-61923 Pneumovax 11:49:51 CDT CPT-96847 Ribs unilateral 2V 12:37:22 GRAVITY PROSPECTING OBSERVER CPT-19161 Chest 2V Frontal and Lat 17:15:26 CDT CPT-30262 Abx/Therapy Injection 18:54:02 CDT CPT-J0696 Rocephin 1000 mg (Ceftriaxone) 16:00:32 CDT CPT-33099 Chest 2V Frontal and Lat 15:26:45 CDT CPT-24227 Chest 2V Frontal and Lat 10:23:27 CDT CPT-03791 Venipuncture Draw Fee 10:11:00 CDT CPT-55350 Administration single or combination vaccine inc oral 11 :56:38 CDT CPT-52147 Influenza split virus > age 3 11:56:38 CDT CPT-44030 Venipuncture Draw Fee 08:49:54 GRAVITY PROSPECTING OBSERVER CPT-75690 EKG Trac and Interp 17:54:19 GRAVITY PROSPECTING OBSERVER
--- OUTSIDE RECORDS SUMMARY | 2018-07-02 12:13 | XMS REPORT | Clinical Summary ---
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 TRUCK PACKER Benign paroxysmal positional vertigo High-risk sexual behavior [...] Index 31.0-31.9, adult Dysphasia 784.59 Active Mason Loredo MD Other speech disturbance Obesity 278.00 Active [...] Feliciano PA-C Body Mass Index 31.0-31.9, adult WOUND, OPEN, NOSE ICD-873.20 Inactive Alina Castaneda MD PhD ANXIETY DISORDER ICD-300.00 Inactive Shavonne Feliciano PA-C DIABETES, TYPE 2 ICD-250.00 Inactive Alina Castaneda MD PhD HYPERTENSION ICD-401.9 Inactive Alina Castaneda MD PhD URI ICD-465.9 Inactive Alina Castaneda MD PhD CHEST PAIN ICD-786.50 Inactive Alina Castaneda MD PhD ANEMIA ICD-285.9 Inactive Shavonne Feliciano PA-C 2017 FH STROKE ICD-V17.1 Inactive Marvel MARROQUIN FATIGUE ICD-780.79 Inactive Alina Castaneda MD PhD DIABETES MELLITUS, TYPE II, UNCONTROLLED ICD-250.02 Inactive Marvel MARROQUIN PALPITATIONS ICD-785.1 Inactive Shavonne Jimenez UNSPECIFIED TACHYCARDIA ICD-785.0 Inactive Alina Castaneda MD PhD ABNORMAL HEART RHYTHMS ICD-427.9 Inactive Alina Castaneda MD PhD PROBLEMS RELATED TO HIGH-RISK SEXUAL BEHAVIOR ICD-V69.2 Inactive Alina Castaneda MD PhD CHEST COUGH ICD-786.2 Inactive Alina Castaneda MD PhD SINUSITIS, ACUTE ICD-461.9 Inactive Alina Castaneda MD PhD BRONCHITIS, ACUTE ICD-466.0 Inactive Alina Castaneda MD PhD PNEUMONIA, ORGANISM UNSPECIFIED ICD-486 Inactive Alina Castaneda MD PhD RIB PAIN, RIGHT SIDED ICD-786.50 Inactive Alina Castaneda MD PhD SKIN LESION ICD-709.9 Inactive Alina Castaneda MD PhD HEADACHE ICD-784.0 Inactive Shavonne Feliciano PA-C SINUSITIS, ACUTE ICD-461.9 Inactive Alina Castaneda MD PhD DIABETIC HYPOGLYCEMIA, TYPE II ICD-250.80 Inactive Marvel 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 Inactive Alina Castaneda MD PhD Diabetes mellitus, type II, uncontrolled ICD-250.02 Inactive Alina Castaneda MD PhD Recurrent isolated sleep paralysis ICD-327.43 Inactive Shavonne Feliciano PA-C SPECIAL SCREENING FOR MALIGNANT NEOPLASM OF PROSTATE ICD-V76.44 Inactive Alina Castaneda MD PhD Hypoglycemia ICD-251.2 Inactive Alina Castaneda MD PhD Dizziness ICD-780.4 Inactive Alina Castaneda MD PhD Confusion ICD-298.9 Inactive Alina Castaneda MD PhD Lower Urinary Tract Symptoms ICD-788.99 Inactive Gabrielle Marquez MA Open wound of tongue and floor of mouth, uncomplicated ICD-873.64 Inactive Alina Castaneda MD PhD Chest pain, atypical ICD-786.59 Inactive Alina Castaneda MD PhD Chest pain, atypical ICD-786.59 Inactive Alina Castaneda MD PhD High-risk sexual [...] Index 31.0-31.9 Adult Inactive Gabrielle Marquez MA Medication List Medication Instructions Start Date Stop Date Generic Name NDC Status Provider Patient Instruction ATORVASTATIN CALCIUM 10 MG ORAL TABLET Take 1 tablet by mouth daily. Recheck labs in 3 months ATORVASTATIN CALCIUM 23344012376 Active Mya Ledezma MA Active VERAPAMIL HCL ER 180 MG ORAL TABLET EXTENDED RELEASE 1 tab BID VERAPAMIL HCL 83441620235 Active Shavonne Feliciano PA-C Active SEROQUEL 25 MG ORAL TABLET Take two tabs by mouth in the morning, take 4 tablets at night QUETIAPINE FUMARATE 33315602375 No Longer Active Shavonne Feliciano PA-C Active EFFEXOR XR 150 MG ORAL CAPSULE EXTENDED RELEASE 24 HOUR 1 tab daily VENLAFAXINE HCL 14101954674 Active Shavonne Feliciano PA-C Active QUETIAPINE FUMARATE 25 MG ORAL TABLET 2 tabs BID QUETIAPINE FUMARATE 26787285994 Active Shavonne Feliciano PA-C Active QUETIAPINE FUMARATE 100 MG ORAL TABLET 1 tab PO at HS QUETIAPINE FUMARATE 23053777668 Active Shavonne Feliciano PA-C Active AMARYL 2 MG ORAL TABLET give 2.5 tabs PO daily GLIMEPIRIDE 10460293997 No Longer Active Shavonne Feliciano PA-C Active AMARYL 2 MG ORAL TABLET give 2 tabs PO in the morning GLIMEPIRIDE 47276953583 Active Shavonne Feliciano PA-C Active FENOFIBRATE 145 MG ORAL TABLET 1 tab PO in the morning FENOFIBRATE 25354661819 Active Shavonne Feliciano PA-C Active SEROQUEL 100 MG ORAL TABLET 1 tab daily QUETIAPINE FUMARATE 93216914947 No Longer Active Shavonne Feliciano PA-C Active [facility] MELATONIN 3 MG ORAL TABLET give 1 tab by mouth at HS MELATONIN 89551679892 No Longer Active Gabrielle Marquez MA Active NOVOLOG FLEXPEN 100 UNIT/ML SUBCUTANEOUS SOLUTION PEN-INJECTOR sliding scale INSULIN ASPART 40764358337 Active Gabrielle Marquez MA Active METFORMIN HCL 1000 MG ORAL TABLET 1 tab by mouth BID METFORMIN HCL 44535380098 Active Gabrielle Marquez MA Active [facility] MELATONIN 3 MG ORAL TABLET 1 tab nightly MELATONIN 78554994618 Active Gabrielle Marquez MA Active TAMSULOSIN HCL 0.4 MG ORAL CAPSULE give 2 capsules PO each evening TAMSULOSIN HCL 95274854613 No Longer Active Gabrielle Marquez MA Active VITAMIN D 2000 UNIT ORAL CAPSULE Take one by mouth daily CHOLECALCIFEROL 05302439678 No Longer Active Gabrielle Marquez MA Active LATUDA 40 MG ORAL TABLET 1.5 tab by mouth in the afternoon LURASIDONE HCL 62508685011 Active Gabrielle Marquez MA Active LEVEMIR 100 UNIT/ML SUBCUTANEOUS SOLUTION 10 u at bedtime INSULIN DETEMIR 24771254600 Active Gabrielle Marquez MA Active TAMSULOSIN HCL 0.4 MG ORAL CAPSULE 2 every night for urine flow TAMSULOSIN HCL 36916429889 Active Gabrielle Marquez MA Active DIVALPROEX SODIUM 125 MG ORAL TABLET DELAYED RELEASE 1 tab each morning 02/17 DIVALPROEX SODIUM 46717991432 Active Gabrielle Marquez MA Active D 1000 TABLET 2 tab by mouth BID CHOLECALCIFEROL TABS 51347889223 Active Gabrielle Marquez MA Active ALIGN 4 MG ORAL CAPSULE 1 tab at hs PROBIOTIC PRODUCT 39845650102 Active Gabrielle Marquez MA Active CLONAZEPAM 1 MG ORAL TABLET 1 pill by mouth two times daily CLONAZEPAM 12631399716 Active Gabrielle Marquez MA Active OCEAN NASAL SPRAY SOLUTION 2 sprays in both nostrils every 8 hours as needed for dry mucous membranes SALINE SOLN 87533654883 Active Mason Loredo MD Active BETHANECHOL CHLORIDE 25 MG ORAL TABLET Take 1 tablet mouth four times a day BETHANECHOL CHLORIDE 08956633486 Active Mason Loredo MD Active [facility] LUBRICANT EYE DROPS 0.4-0.3 % OPHTHALMIC SOLUTION POLYETHYL GLYCOL-PROPYL GLYCOL 35343823615 No Longer Active Mason Loredo MD Active TYLENOL 8 HOUR 650 MG ORAL TABLET EXTENDED RELEASE 1 tab QID prn ACETAMINOPHEN 79878023564 No Longer Active Mason Loredo MD Active TOPAMAX 25 MG ORAL TABLET 1 tab BID PRN TOPIRAMATE 66283096681 Active Mason Loredo MD Active TIMOPTIC OCUDOSE 0.5 % OPHTHALMIC SOLUTION instill one drop into both eyes q12H TIMOLOL MALEATE 58993240306 Active Mason Loredo MD Active TRAZODONE HCL 100 MG ORAL TABLET 1 every night to prevent headaches TRAZODONE HCL 83623900069 No Longer Active Mason Loredo MD Active TRAVATAN Z 0.004 % OPHTHALMIC SOLUTION 1 drop each eye daily 2017 TRAVOPROST 06849759844 No Longer Active Mason Loredo MD Active LATUDA 60 MG ORAL TABLET 1 tab daily LURASIDONE HCL 73099153269 No Longer Active Mason Loredo MD Active MORPHINE SULFATE ER 30 MG ORAL TABLET EXTENDED RELEASE Take one capsule BID MORPHINE SULFATE 10215710179 No Longer Active Mason Loredo MD Active TRUE METRIX BLOOD GLUCOSE TEST IN VITRO STRIP Check blood sugars 3x/day. 2015 GLUCOSE BLOOD 30046999729 No Longer Active Mason Loredo MD Active TRUEPLUS LANCETS 30G 3x a day LANCETS 73948301233 No Longer Active Mason Loredo MD Active MYLANTA GAS RELIEF MAXIMUM STR 125 MG ORAL CAPSULE 30cc every 4 hours prn SIMETHICONE 19270448177 No Longer Active Mason Loredo MD Active IMODIUM A-D 2 MG ORAL TABLET 1 tab QID as needed LOPERAMIDE HCL 54102378448 No Longer Active Mason Loredo MD Active FLONASE ALLERGY RELIEF 50 MCG/ACT NASAL SUSPENSION One spray each nostril BID x 1 week then daily FLUTICASONE PROPIONATE 08656663750 No Longer Active Mason Loredo MD Active FLUVOXAMINE MALEATE 100 MG ORAL TABLET take one tab every AM et HS, and take 1 /2 tab at noon FLUVOXAMINE MALEATE 67573969033 No Longer Active Mason Loredo MD Active BD PEN NEEDLE MINI U/F 31G X 5 MM 4 a day INSULIN PEN NEEDLE 30304646185 No Longer Active Mason Loredo MD Active AMITIZA 24 MCG ORAL CAPSULE Take one capsule BID for constipation LUBIPROSTONE 96035977808 No Longer Active Mason Loredo MD Active TRUEPLUS LANCETS 30G 3 a day LANCETS 17722122313 No Longer Active Mason Loredo MD Active CORICIDIN HBP CONGESTION/COUGH 10-200 MG ORAL CAPSULE Take as directed on box as needed for cold/flu symptoms DEXTROMETHORPHAN- GUAIFENESIN 86248502931 No Longer Active Mason Loredo MD Active OMEGA-3 300 MG ORAL CAPSULE 4 caps by mouth daily OMEGA-3 FATTY ACIDS 57116644463 No Longer Active Mason Loredo MD Active HUMALOG KWIKPEN 100 UNIT/ML SUBCUTANEOUS SOLUTION PEN-INJECTOR sliding scale if needed INSULIN LISPRO (HUMAN) 99406868801 No Longer Active Mason Loredo MD Active TRUETEST TEST IN VITRO STRIP check blood sugars 3x/day GLUCOSE BLOOD 20873681737 No Longer Active Mason Loredo MD Active ALFUZOSIN HCL ER 10 MG ORAL TABLET EXTENDED RELEASE 24 HOUR 1 tablet daily ALFUZOSIN HCL 84764027521 No Longer Active Mason Loredo MD Active BD INSULIN SYRINGE 28G X 1/2" 1 ML 1 four times per day INSULIN SYRINGE-NEEDLE U-100 26678790298 No Longer Active Mason Loredo MD Active LEVEMIR FLEXTOUCH 100 UNIT/ML SUBCUTANEOUS SOLUTION PEN-INJECTOR 60 units SQ each evening, for diabetes INSULIN DETEMIR 14638611552 No Longer Active Mason Loredo MD Active LACTULOSE 20 GM/30ML ORAL SOLUTION give 30 Ml PO BID PRN LACTULOSE 29884257542 Active Mason Loredo MD Active COLACE 100 MG ORAL CAPSULE 1 tab BID PRN DOCUSATE SODIUM 64133216510 Active Mason Loredo MD Active LATANOPROST 0.005 % OPHTHALMIC SOLUTION instill 1 drop in both eyes at bed time LATANOPROST 15849610595 Active Mason Loredo MD Active MIRALAX ORAL POWDER 17g by mouth q12h, for constipation POLYETHYLENE GLYCOL 3350 51745844400 Active Mason Loredo MD Active IBUPROFEN 400 MG ORAL TABLET 1 tab Q6H PRN IBUPROFEN 87049224944 Active Mason Loredo MD Active FLUVOXAMINE MALEATE 50 MG ORAL TABLET 1 tab by mouth daily 04/01 FLUVOXAMINE MALEATE 95115345716 No Longer Active Mima Yoeloinaum TRUCK PACKER Active TRUE METRIX METER w/Device KIT Check blood sugars 3x/day BLOOD GLUCOSE MONITORING SUPPL 11717873339 Active Maljohn Ziglari CATALOG SPECIALIST Active LATUDA 60 MG ORAL TABLET Take one by mouth daily LURASIDONE HCL 35563163144 No Longer Active Mima Erazo APRN Active [facility] MILK OF MAGNESIA 400 MG/5ML ORAL SUSPENSION 30ml by mouth bid prn MAGNESIUM HYDROXIDE 11972686193 Active Mason Loredo MD Active TRAVATAN Z 0.004 % OPHTHALMIC SOLUTION 1 gtt each eye daily TRAVOPROST 07232803583 No Longer Active Mason Loredo MD Active LISINOPRIL 20 MG ORAL TABLET 1 BID LISINOPRIL 48114663603 No Longer Active Mason Loredo MD Active ZOLPIDEM TARTRATE 10 MG ORAL TABLET take at bedtime ZOLPIDEM TARTRATE 46178491504 No Longer Active Mason Loredo MD Active HYDROCODONE-ACETAMINOPHEN 5-325 MG ORAL TABLET 2 tabs by mouth three times daily for pain HYDROCODONE-ACETAMINOPHEN 96996640177 No Longer Active Mason Loredo MD Active ZOFRAN 4 MG ORAL TABLET 1 po q4hr PRN Nausea ONDANSETRON HCL 66826048030 No Longer Active Mason Loredo MD Active LOMOTIL 2.5-0.025 MG ORAL TABLET take 1-2 tabs PO after each stool, no more than 8 in 24 hours DIPHENOXYLATE-ATROPINE 87339198812 No Longer Active Mason Loredo MD Active COLACE 100 MG ORAL CAPSULE 1 pill by mouth twice daily, for constipation 2014 DOCUSATE SODIUM 75880710955 No Longer Active Mima Erazo APRN Active TOLTERODINE TARTRATE 2 MG ORAL TABLET 1 pill twice daily, for bladder TOLTERODINE TARTRATE 32694115574 No Longer Active Vanessa Hickey MD Active AMITIZA 24 MCG ORAL CAPSULE Take one capsule BID for constipation. LUBIPROSTONE 60289953023 No Longer Active Vanessa Hickey MD Active METOPROLOL SUCCINATE ER 100 MG ORAL TABLET EXTENDED RELEASE 24 HOUR 1 by mouth daily for blood pressure METOPROLOL SUCCINATE 96592638272 No Longer Active Grace Azam RMA Active METFORMIN HCL ER 500 MG ORAL TABLET EXTENDED RELEASE 24 HOUR Take three tablets by mouth everyday METFORMIN HCL 28836681472 No Longer Active Grace Azam RMA Active LOVAZA 1 GM ORAL CAPSULE 4 daily (for triglycerides) [id number] ETHYL ESTERS 39673110233 No Longer Active Grace Azam RMA Active TRAZODONE HCL 100 MG ORAL TABLET 1 tab by mouth for sleep TRAZODONE HCL 15546565158 No Longer Active Grace Azam RMA Active NOVOFINE 32G X 6 MM use one four times per day INSULIN PEN NEEDLE 46453809792 No Longer Active Grace Azam RMA Active BACTROBAN 2 % EXTERNAL CREAM Apply to affected area BID for up to 10 days MUPIROCIN CALCIUM 37276968185 No Longer Active Grace Azam RMA Active KEFLEX 500 MG ORAL CAPSULE 1 po BID x 7 days CEPHALEXIN 40513253092 No Longer Active Cherelle Avila APRN Active FLUVOXAMINE MALEATE 100 MG ORAL TABLET Take one (1) tablet by mouth am, 1/2 at noon FLUVOXAMINE MALEATE 04434691694 No Longer Active Mima Erazo APRN Active FLUVOXAMINE MALEATE 100 MG ORAL TABLET Take 1/2 tab at noon 03/04 FLUVOXAMINE MALEATE 66293339366 No Longer Active Cherelle Avila ALBAN Active ACCU-CHEK ROSA DEVICE Use device to check blood sugars BLOOD GLUCOSE MONITORING SUPPL 02124849259 No Longer Active Marvel MARROQUIN Active ACCU-CHEK ROSA IN VITRO STRIP use strips with device to check blood sugars 3 times daily GLUCOSE BLOOD 51999475191 No Longer Active Mallashondaeh 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 CATALOG SPECIALIST Active VERAPAMIL HCL ER 180 MG ORAL TABLET EXTENDED RELEASE 1 pill by mouth twice daily, for migraine prevention VERAPAMIL HCL 04011533479 Active Mima Aguilareloinajerrell ALBAN Active CYCLOBENZAPRINE HCL 10 MG ORAL TABLET 1 tablet by mouth three times daily, scheduled CYCLOBENZAPRINE HCL 71917217836 No Longer Active Alina Castaneda MD PhD Active HUMALOG 100 UNIT/ML SUBCUTANEOUS SOLUTION Take 20 units with breakfast, 10u with lunch and suppetr. INSULIN LISPRO (HUMAN) 49083520549 No Longer Active Alina Castaneda MD PhD Active TRUETEST TEST IN VITRO STRIP check sugars 4x/day GLUCOSE BLOOD 56201846444 No Longer Active Alina Castaneda MD PhD Active MORPHINE SULFATE 30 MG ORAL TABLET 1 pill by mouth twice daily, for pain 2013 MORPHINE SULFATE 63189516834 No Longer Active Masno Loredo MD Active ACYCLOVIR 400 MG ORAL TABLET 1 pill three times daily x 5 days, for cold sore outbreak ACYCLOVIR 89044753931 No Longer Active Alina Castaneda MD PhD Active PENICILLIN V POTASSIUM 500 MG ORAL TABLET 1 pill by mouth three times daily PENICILLIN V POTASSIUM 77627994142 No Longer Active Alina Castaneda MD PhD Active UROXATRAL 10 MG ORAL TABLET EXTENDED RELEASE 24 HOUR Take 1 tablet by mouth daily ALFUZOSIN HCL 49825573860 No Longer Active Alina Castaneda MD PhD Active THIOTHIXENE 5 MG ORAL CAPSULE by mouth twice a day THIOTHIXENE 54476578683 No Longer Active Alina Castaneda MD PhD Active ZYPREXA 7.5 MG ORAL TABLET 1 at HS OLANZAPINE 38625742403 No Longer Active Alina Castaneda MD PhD Active DETROL LA 4 MG ORAL CAPSULE EXTENDED RELEASE 24 HOUR Take 1 tablet by mouth daily TOLTERODINE TARTRATE 23878508880 No Longer Active Alina Castaneda MD PhD Active TERESE CONTOUR TEST IN VITRO STRIP monitor blood sugars 3x/day GLUCOSE BLOOD 35425975859 No Longer Active Alina Castaneda MD PhD Active EQL TRUETEST TEST IN VITRO STRIP Test blood sugar TID GLUCOSE BLOOD 70226931772 No Longer Active Alina Castaneda MD PhD Active FLUTICASONE PROPIONATE 50 MCG/ACT NASAL SUSPENSION 2 sprays each nostril qDay x 30 days FLUTICASONE PROPIONATE 22900980435 No Longer Active Alina Castaneda MD PhD Active IBUPROFEN 200 MG ORAL TABLET 1 Q 6 hr. PRN IBUPROFEN 85395072634 No Longer Active Alina Castaneda MD PhD Active NIACIN ER 500 MG ORAL TABLET EXTENDED RELEASE 4 qHS (for triglycerides) 01/13 NIACIN 27547975662 No Longer Active Alina Castaneda MD PhD Active SAPHRIS 5 MG SUBLINGUAL TABLET SUBLINGUAL by mouth twice a day ASENAPINE MALEATE 14263710300 No Longer Active Marvel MARROQUIN Active ACETAMINOPHEN 500 MG ORAL TABLET 2 Q 6 hr. PRN ACETAMINOPHEN 65692048634 No Longer Active Mallashondaeh Ziglari CATALOG SPECIALIST Active ORPHENADRINE CITRATE ER 100 MG ORAL TABLET EXTENDED RELEASE 12 HOUR 1 every 12 hr. as needed ORPHENADRINE CITRATE 93369636758 No Longer Active Alina Castaneda MD PhD Active NIACIN ER 500 MG ORAL TABLET EXTENDED RELEASE 2 qHS NIACIN 14560229956 No Longer Active Alina Castaneda MD PhD Active AMOXICILLIN 500 MG ORAL CAPSULE 2 po BID x 10 days AMOXICILLIN 33701704261 No Longer Active Alina Castaneda MD PhD Active HYDROCODONE-ACETAMINOPHEN 7.5-325 MG ORAL TABLET 1 four times a day as needed for pain HYDROCODONE-ACETAMINOPHEN 45585137839 No Longer Active Alina Castaneda MD PhD Active DOXEPIN HCL 10 MG ORAL CAPSULE Take 1 tablet by mouth daily DOXEPIN HCL 41192801486 No Longer Active Salina Han [facility] Active NAVANE 10 MG CAPS 1/2 tablet twice a day THIOTHIXENE No Longer Active Salina Han [facility] Active CYCLOBENZAPRINE HCL 10 MG ORAL TABLET 1/2 tablet by mouth every 8 hours as needed for muscle spasms CYCLOBENZAPRINE HCL 71046837461 No Longer Active Alina Castaneda MD PhD Active BACTROBAN 2 % EXTERNAL CREAM apply to ear and nose twice daily MUPIROCIN CALCIUM 41207987764 No Longer Active Alina Castaneda MD PhD Active HYDROCODONE-ACETAMINOPHEN 5-325 MG ORAL TABLET take one tablet by mouth every four hours as needed for pain HYDROCODONE-ACETAMINOPHEN 37354050321 No Longer Active Alina Castaneda MD PhD Active ZYPREXA 5 MG ORAL TABLET take one tablet by mouth every evening OLANZAPINE 63671467791 No Longer Active Alina Castaneda MD PhD Active ALBUTEROL SULFATE (2.5 MG/3ML) 0.083% INHALATION NEBULIZATION SOLUTION one vial per nebulizer TID and PRN cough/soa ALBUTEROL SULFATE 43141424942 No Longer Active Alina Castaneda MD PhD Active GUAIFENESIN ER 600 MG ORAL TABLET EXTENDED RELEASE 12 HOUR 1 tablet by mouth twice daily if needed for cough GUAIFENESIN 91459075691 No Longer Active Marvel MARROQUIN Active AZITHROMYCIN 500 MG INTRAVENOUS SOLUTION RECONSTITUTED 1 po q day AZITHROMYCIN 79181121060 No Longer Active Alina Castaneda MD PhD Active PROMETHAZINE-CODEINE 6.25-10 MG/5ML ORAL SYRUP 1 tsp po q 6 hours prn cough PROMETHAZINE-CODEINE 69432770549 No Longer Active Alina Castaneda MD PhD Active CEFDINIR 300 MG ORAL CAPSULE by mouth twice a day CEFDINIR 89227157779 No Longer Active Alina Castaneda MD PhD Active METFORMIN HCL ER 500 MG ORAL TABLET EXTENDED RELEASE 24 HOUR Take 3 tablets by mouth everyday METFORMIN HCL 55842247668 No Longer Active Alina Castaneda MD PhD Active LEVEMIR 100 UNIT/ML SUBCUTANEOUS SOLUTION 90 units SQ qHS INSULIN DETEMIR 19755871828 No Longer Active Marvel MARROQUIN Active TOPROL XL 100 MG ORAL TABLET EXTENDED RELEASE 24 HOUR 1 @ HS METOPROLOL SUCCINATE 93761327983 No Longer Active Marvel MARROQUIN Active ALLOPURINOL 300 MG ORAL TABLET Take one by mouth daily ALLOPURINOL 59442365380 Active Mima Erazo TRUCK PACKER Active ZYPREXA 10 MG ORAL TABLET Take one by mouth daily OLANZAPINE 94789828041 No Longer Active Alina Castaneda MD PhD Active NOVOLOG 100 UNIT/ML SUBCUTANEOUS SOLUTION 40 units with every meal INSULIN ASPART 76567145747 No Longer Active Alina Castaneda MD PhD Active VERAPAMIL HCL ER 120 MG ORAL TABLET EXTENDED RELEASE 1 qPM 09/08 VERAPAMIL HCL 11097747456 No Longer Active Salina ROJAS Active ZYPREXA 15 MG ORAL TABLET Take 1 tablet by mouth daily OLANZAPINE 69580135971 No Longer Active Marvel MARROQUIN Active ALBUTEROL SULFATE (2.5 MG/3ML) 0.083% INHALATION NEBULIZATION SOLUTION 1 neb tid and prn cough ALBUTEROL SULFATE 48219483459 No Longer Active Alina Castaneda MD PhD Active LANTUS 100 UNIT/ML SUBCUTANEOUS SOLUTION 60 units sq q hs INSULIN GLARGINE 45296046691 No Longer Active CRYSTAL Suarez Active ALBUTEROL SULFATE (2.5 MG/3ML) 0.083% INHALATION NEBULIZATION SOLUTION 1 neb tid and prn cough ALBUTEROL SULFATE (2.5 MG/3ML) 0.083% INHALATION NEBULIZATION SOLUTION 194438 ALBUTEROL SULFATE Inactive ZYPREXA 15 MG ORAL TABLET Take 1 tablet by mouth daily ZYPREXA 15 MG ORAL TABLET 715118 OLANZAPINE Inactive VERAPAMIL HCL ER 120 MG ORAL TABLET EXTENDED RELEASE 1 qPM 09/08 VERAPAMIL HCL ER 120 MG ORAL TABLET EXTENDED RELEASE VERAPAMIL HCL Inactive ZYPREXA 10 MG ORAL TABLET Take one by mouth daily ZYPREXA 10 MG ORAL TABLET 441462 OLANZAPINE Inactive TOPROL XL 100 MG ORAL TABLET EXTENDED RELEASE 24 HOUR 1 @ HS TOPROL XL 100 MG ORAL TABLET EXTENDED RELEASE 24 HOUR METOPROLOL SUCCINATE Inactive LEVEMIR 100 UNIT/ML SUBCUTANEOUS SOLUTION 90 units SQ qHS LEVEMIR 100 UNIT/ML SUBCUTANEOUS SOLUTION INSULIN DETEMIR Inactive PROMETHAZINE-CODEINE 6.25-10 MG/5ML ORAL SYRUP 1 tsp po q 6 hours prn cough PROMETHAZINE-CODEINE 6.25-10 MG/5ML ORAL SYRUP 374703 PROMETHAZINE-CODEINE Inactive GUAIFENESIN ER 600 MG ORAL TABLET EXTENDED RELEASE 12 HOUR 1 tablet by mouth twice daily if needed for cough GUAIFENESIN ER 600 MG ORAL TABLET EXTENDED RELEASE 12 HOUR GUAIFENESIN Inactive ALBUTEROL SULFATE (2.5 MG/3ML) 0.083% INHALATION NEBULIZATION SOLUTION one vial per nebulizer TID and PRN cough/soa ALBUTEROL SULFATE (2.5 MG/3ML) 0.083% INHALATION NEBULIZATION SOLUTION 309751 ALBUTEROL SULFATE Inactive ZYPREXA 5 MG ORAL TABLET take one tablet by mouth every evening ZYPREXA 5 MG ORAL TABLET 763077 OLANZAPINE Inactive HYDROCODONE-ACETAMINOPHEN 5-325 MG ORAL TABLET take one tablet by mouth every four hours as needed for pain HYDROCODONE-ACETAMINOPHEN 5-325 MG ORAL TABLET 153456 HYDROCODONE-ACETAMINOPHEN Inactive BACTROBAN 2 % EXTERNAL CREAM apply to ear and nose twice daily BACTROBAN 2 % EXTERNAL CREAM 116150 MUPIROCIN CALCIUM Inactive CYCLOBENZAPRINE HCL 10 MG ORAL TABLET 1/2 tablet by mouth every 8 hours as needed for muscle spasms CYCLOBENZAPRINE HCL 10 MG ORAL TABLET 242161 CYCLOBENZAPRINE HCL Inactive NAVANE 10 MG CAPS 1/2 tablet twice a day NAVANE 10 MG CAPS THIOTHIXENE Inactive DOXEPIN HCL 10 MG ORAL CAPSULE Take 1 tablet by mouth daily DOXEPIN HCL 10 MG ORAL CAPSULE 1873574 DOXEPIN HCL Inactive HYDROCODONE-ACETAMINOPHEN 7.5-325 MG ORAL TABLET 1 four times a day as needed for pain HYDROCODONE-ACETAMINOPHEN 7.5-325 MG ORAL TABLET 688407 HYDROCODONE-ACETAMINOPHEN Inactive NIACIN ER 500 MG ORAL [...] hr. PRN ACETAMINOPHEN 500 MG ORAL TABLET 098669 ACETAMINOPHEN Inactive SAPHRIS 5 MG SUBLINGUAL TABLET SUBLINGUAL by mouth twice a day SAPHRIS 5 MG SUBLINGUAL TABLET SUBLINGUAL ASENAPINE MALEATE Inactive NIACIN ER 500 MG ORAL TABLET EXTENDED RELEASE 4 qHS (for triglycerides) 01/13 NIACIN ER 500 MG ORAL TABLET EXTENDED RELEASE NIACIN Inactive IBUPROFEN 200 MG ORAL TABLET 1 Q 6 hr. PRN IBUPROFEN 200 MG ORAL TABLET 762668 IBUPROFEN Inactive FLUTICASONE PROPIONATE 50 MCG/ACT NASAL SUSPENSION 2 sprays each nostril qDay x 30 days FLUTICASONE PROPIONATE 50 MCG/ACT NASAL SUSPENSION 5298391 FLUTICASONE PROPIONATE Inactive EQL TRUETEST TEST IN [...] at HS ZYPREXA 7.5 MG ORAL TABLET 043885 OLANZAPINE Inactive THIOTHIXENE 5 MG ORAL CAPSULE by mouth twice a day THIOTHIXENE 5 MG ORAL CAPSULE 134461 THIOTHIXENE Inactive UROXATRAL 10 MG ORAL TABLET EXTENDED RELEASE 24 HOUR Take 1 tablet by mouth daily UROXATRAL 10 MG ORAL TABLET EXTENDED RELEASE 24 HOUR ALFUZOSIN HCL Inactive ACYCLOVIR 400 MG ORAL TABLET 1 pill three times daily x 5 days, for cold sore outbreak ACYCLOVIR 400 MG ORAL TABLET 066012 ACYCLOVIR Inactive TRUETEST TEST IN VITRO STRIP check sugars 4x/day TRUETEST TEST IN VITRO STRIP GLUCOSE BLOOD Inactive HUMALOG 100 UNIT/ML SUBCUTANEOUS SOLUTION Take 20 units with breakfast, 10u with lunch and suppetr. HUMALOG 100 UNIT/ML SUBCUTANEOUS SOLUTION INSULIN LISPRO (HUMAN) Inactive CYCLOBENZAPRINE HCL 10 MG ORAL TABLET 1 tablet by mouth three times daily, scheduled CYCLOBENZAPRINE HCL 10 MG ORAL TABLET 615171 CYCLOBENZAPRINE HCL Inactive ACCU-CHEK ROSA IN VITRO STRIP use strips with device to check blood sugars 3 times daily ACCU-CHEK ROSA IN VITRO STRIP GLUCOSE BLOOD Inactive ACCU-CHEK ROSA DEVICE Use device to check blood sugars ACCU-CHEK ROSA DEVICE BLOOD GLUCOSE MONITORING SUPPL Inactive FLUVOXAMINE MALEATE 100 MG ORAL TABLET Take 1/2 tab at noon 03/04 FLUVOXAMINE MALEATE 100 MG ORAL TABLET 662931 FLUVOXAMINE MALEATE Inactive FLUVOXAMINE MALEATE 100 MG ORAL TABLET Take one (1) tablet by mouth am, 1/2 at noon FLUVOXAMINE MALEATE 100 MG ORAL TABLET 137756 FLUVOXAMINE MALEATE Inactive BACTROBAN 2 % EXTERNAL CREAM Apply to affected area BID for up to 10 days BACTROBAN 2 % EXTERNAL CREAM 813147 MUPIROCIN CALCIUM Inactive NOVOFINE 32G X 6 MM use one four times per day NOVOFINE 32G X 6 MM INSULIN PEN NEEDLE Inactive TRAZODONE HCL 100 MG ORAL TABLET 1 tab by mouth for sleep TRAZODONE HCL 100 MG ORAL TABLET 629030 TRAZODONE HCL Inactive LOVAZA 1 GM ORAL CAPSULE 4 daily (for triglycerides) LOVAZA 1 GM ORAL CAPSULE 072499 [id number] ETHYL ESTERS Inactive METFORMIN HCL ER 500 [...] bladder TOLTERODINE TARTRATE 2 MG ORAL TABLET 852574 TOLTERODINE TARTRATE Inactive COLACE 100 MG ORAL CAPSULE 1 pill by mouth twice daily, for constipation 2014 COLACE 100 MG ORAL CAPSULE 5157456 DOCUSATE SODIUM Inactive LOMOTIL 2.5-0.025 MG ORAL TABLET take 1-2 tabs PO after each stool, no more than 8 in 24 hours LOMOTIL 2.5-0.025 MG ORAL TABLET 9018866 DIPHENOXYLATE-ATROPINE Inactive ZOFRAN 4 MG ORAL TABLET 1 po q4hr PRN Nausea ZOFRAN 4 MG ORAL TABLET 158266 ONDANSETRON HCL Inactive HYDROCODONE-ACETAMINOPHEN 5-325 MG ORAL TABLET 2 tabs by mouth three times daily for pain HYDROCODONE-ACETAMINOPHEN 5-325 MG ORAL TABLET 740790 HYDROCODONE-ACETAMINOPHEN Inactive ZOLPIDEM TARTRATE 10 MG ORAL TABLET take at bedtime ZOLPIDEM TARTRATE 10 MG ORAL TABLET 874686 ZOLPIDEM TARTRATE Inactive LISINOPRIL 20 MG ORAL TABLET 1 BID LISINOPRIL 20 MG ORAL TABLET 059325 LISINOPRIL Inactive TRAVATAN Z 0.004 % OPHTHALMIC SOLUTION 1 gtt each eye daily TRAVATAN Z 0.004 % OPHTHALMIC SOLUTION TRAVOPROST Inactive LATUDA 60 MG ORAL TABLET Take one by mouth daily LATUDA 60 MG ORAL TABLET LURASIDONE HCL Inactive FLUVOXAMINE MALEATE 50 MG ORAL TABLET 1 tab by mouth daily 04/01 FLUVOXAMINE MALEATE 50 MG ORAL TABLET 977334 FLUVOXAMINE MALEATE Inactive LEVEMIR FLEXTOUCH 100 UNIT/ML [...] 30G 3 a day TRUEPLUS LANCETS 30G [id number] LANCETS Inactive AMITIZA 24 MCG ORAL CAPSULE [...] noon FLUVOXAMINE MALEATE 100 MG ORAL TABLET 831802 FLUVOXAMINE MALEATE Inactive FLONASE ALLERGY RELIEF 50 MCG/ACT NASAL SUSPENSION One spray each nostril BID x 1 week then daily FLONASE ALLERGY RELIEF 50 MCG/ACT NASAL SUSPENSION 9733912 FLUTICASONE PROPIONATE Inactive IMODIUM A-D 2 MG ORAL TABLET 1 tab QID as needed IMODIUM A-D 2 MG ORAL TABLET 975883 LOPERAMIDE HCL Inactive MYLANTA GAS RELIEF MAXIMUM STR 125 MG ORAL CAPSULE 30cc every 4 hours prn MYLANTA GAS RELIEF MAXIMUM STR 125 MG ORAL CAPSULE SIMETHICONE Inactive TRUEPLUS LANCETS 30G 3x a day TRUEPLUS LANCETS 30G [id number] LANCETS Inactive TRUE METRIX BLOOD GLUCOSE TEST [...] headaches TRAZODONE HCL 100 MG ORAL TABLET 941056 TRAZODONE HCL Inactive TYLENOL 8 HOUR 650 [...] evening TAMSULOSIN HCL 0.4 MG ORAL CAPSULE 775345 TAMSULOSIN HCL Inactive [facility] MELATONIN 3 MG ORAL TABLET give 1 tab by mouth at HS [facility] MELATONIN 3 MG ORAL TABLET 643898 MELATONIN Inactive SEROQUEL 100 MG ORAL TABLET 1 tab daily SEROQUEL 100 MG ORAL TABLET 820524 QUETIAPINE FUMARATE Inactive AMARYL 2 MG ORAL TABLET give 2.5 tabs PO daily AMARYL 2 MG ORAL TABLET 955626 GLIMEPIRIDE Inactive SEROQUEL 25 MG ORAL TABLET Take two tabs by mouth in the morning, take 4 tablets at night SEROQUEL 25 MG ORAL TABLET 489285 QUETIAPINE FUMARATE Inactive CEFDINIR 300 MG ORAL CAPSULE by mouth twice a day CEFDINIR 300 MG ORAL CAPSULE 412752 CEFDINIR Inactive AZITHROMYCIN 500 MG INTRAVENOUS SOLUTION RECONSTITUTED 1 po q day AZITHROMYCIN 500 MG INTRAVENOUS SOLUTION RECONSTITUTED [id number] AZITHROMYCIN Inactive AMOXICILLIN 500 MG ORAL CAPSULE 2 po BID x 10 days AMOXICILLIN 500 MG ORAL CAPSULE 673666 AMOXICILLIN Inactive PENICILLIN V POTASSIUM 500 MG ORAL TABLET 1 pill by mouth three times daily PENICILLIN V POTASSIUM 500 MG ORAL TABLET 738089 PENICILLIN V POTASSIUM Inactive KEFLEX 500 MG ORAL CAPSULE 1 po BID x 7 days KEFLEX 500 MG ORAL CAPSULE 828184 CEPHALEXIN Inactive Immunizations Vaccine Administration Date Value [...] Fluvirin, Fluarix, Agriflu(>=18 yo)) Fluzone (>3 yrs.) [[id number]] Influenza, seasonal, injectable pneumococcal immunization administered Pneumovax [...] ... - Chemistry sodium, serum 135 mmol/L 289-962 8647/08/22 carbon dioxide, venous blood 28.4 mmol/L 21.0-32.0 [...] mg/g {creat} 0-29 cholesterol, serum 263 mg/dL 078-263 2744/08/22 triglyceride, serum, fasting 1312 mg/dL 30-200 HDL cholesterol, serum 21 mg/dL 32-60 LDL cholesterol, serum -20 mg/dL 0-130 hemoglobin A1C, blood, as % of total hemoglobin 7.4 % 4.3-6.0 prostate specific antigen 0.69 ng/mL 0.00-4.00 Lab Report: CBC, Comp. Metabolic Panel, MICROALB/CREAT W/RATIO, Lipid Pa ... - Hematology leukocyte count, blood 8.4 10^3/MM^3 10*3/mm3 4.6-10.2 erythrocyte (RBC) count 5.86 10^6/MM^3 10*6/mm3 4.50-6.50 hemoglobin, blood 16.6 g/dL 14.0-18.0 hematocrit, blood 51.2 % 40.0-54.0 mean corpuscular volume, RBC 87 fL 80-97 mean corpuscular hemoglobin, RBC 28.4 pg 27.0-31.2 mean corpuscular hemoglobin concentration, RBC 32.4 G/DL % 31.8- 35.4 red blood cell distribution width 12.7 % 11.6-14.8 platelet count 307 10^3/MM^3 10*3/mm3 142-424 Lab Report: CBC, Comp. Metabolic Panel, MICROALB/CREAT W/RATIO, Lipid Pa ... - Lab microalbumin, urine 80 mg/L 0-19 Office Visit: TCM from intermediate - Lab PSA (prostate specific antigent), recommendation and action PSA ordered Encounters Code Encounter Date Provider Facility CPT-16506 [id number] Vst-Est Level III 11:00:25 [facility] Level 3 Est. Patient 09:12:14 STEAM BLOCKER [facility] Est[facility] Patient 16:52:51 CDT Vanessa Hickey MD [facility] CPT-95884 Level 3 Est. Patient 17:40:16 [facility] Level 3 Est. Patient 14:34:52 CDT Vanessa Hickey MD [facility]-18758 Level 3 Est. Patient 16:27:51 [facility] Level 3 Est. Patient 14:39:00 STEAM BLOCKER Vanessa Hickey MD [facility] CPT-08299 Level 2 Est. Patient 18:43:34 CDT Mima Erazo [facility] CPT-44583 Level 3 Est. Patient 16:22:09 CDT Cherelle Avila [facility] CPT-51126 Level 4 Est. Patient 17:55:14 CDT Mima Erazo [facility] CPT-36748 Level 2 Est. Patient 17:13:21 CDT Alina Castaneda MD PhD [facility] CPT-64587 Level 3 Est. Patient 14:46:15 CDT Vanessa Hickey MD [facility]-38196 Level 3 Est. Patient 09:34:56 CDT Alina Castaneda MD [facility]-72881 Level 3 Est. Patient 21:40:19 CDT Mima Erazo APRN [facility]-51474 Level 3 Est. Patient 09:26:40 CDT Marvel Charles [facility]-27745 Level 3 Est. Patient 12:36:43 CDT Vanessa Hickey MD [facility]-25265 Level 3 Est. Patient 12:57:49 CDT Vanessa Hickey MD [facility]-41681 Level 3 Est. Patient 00:28:25 CDT Alina Castaneda MD [facility]70988 Level 2 Est. Patient 12:52:14 CDT Alina Castaneda MD [facility]-44492 Level 3 Est. Patient 11:51:18 STEAM BLOCKER Alina Castaneda MD [facility]-77794 Level 3 Est. Patient 10:09:22 STEAM BLOCKER Alina Castaneda MD [facility]61694 Level 3 Est. Patient 14:36:26 STEAM BLOCKER Marvel Charles [facility]-87674 Level 3 Est. Patient 13:34:47 STEAM BLOCKER Alina Castaneda MD [facility]-60035 Level 3 Est. Patient 19:52:08 STEAM BLOCKER Alina Castaneda MD [facility]23518 Level 3 Est. Patient 10:01:51 STEAM BLOCKER Marvel Charles [facility]-64178 Level 3 Est. Patient 21:54:06 CDT Vanessa Hickey MD [facility]-35069 Level 3 Est. Patient 08:54:46 CDT Alina Castaneda MD [facility]-24534 Level 3 Est. Patient 09:32:11 CDT Marvel Araceli [facility]-21215 Level 3 Est. Patient 12:02:49 CDT Alina Castaneda MD [facility]-78981 Level 3 Est. Patient 19:17:33 CDT Alina Castaneda MD [facility]-23554 Level 3 Est. Patient 13:19:10 CDT Brookslashondanivia Araceli [facility]-62890 Level 3 Est. Patient 08:20:05 CDT Alina Castaneda MD [facility]-93443 Level 3 Est. Patient 15:17:18 CDT Alina Castaneda MD [facility]-55797 Level 3 Est. Patient 14:25:36 STEAM BLOCKER [facility]-63861 Level 3 Est. Patient 10:09:15 STEAM BLOCKER Marvel Thurstonestela [facility] CPT-80452 Level 3 Est. Patient 21:28:43 CDT Alina Castaneda MD [facility]-20955 Level 3 Est. Patient 15:20:11 CDT Brooksjohn Charles [facility]-79051 Level 4 Est. Patient 19:08:12 CDT Alina Castaneda MD [facility]74988 Level 3 Est. Patient 15:06:39 CDT [facility]-23940 Level 4 Est. Patient 17:48:15 CDT Alina Castaneda MD [facility]-98546 Level 3 Est. Patient 14:53:49 CDT Alina Castaneda MD [facility]-02880 Level 3 Est. Patient 09:35:16 CDT Alina Castaneda MD [facility]-70299 Level 3 Est. Patient 12:23:22 CDT Alina Castaneda MD [facility]-55083 Level 3 Est. Patient 16:19:15 CDT Alina Castaneda MD [facility]-81266 Level 3 Est. Patient 21:39:56 STEAM BLOCKER Alina Castaneda MD [facility]99097 Level 4 Est. Patient 14:12:56 STEAM BLOCKER Alina Castaneda MD [facility]-41862 Level 2 Est. Patient 15:34:57 STEAM BLOCKER Alina Castaneda MD [facility]-47045 Level 3 Est. Patient 12:17:04 STEAM BLOCKER Alina Castaneda MD [facility]-96503 Level 3 Est. Patient 09:18:18 STEAM BLOCKER Marvel Charles [facility]-12139 Level 2 Est. Patient 21:50:24 CDT Alina Castaneda MD [facility]-02265 Level 3 Est. Patient 09:17:28 CDT Marvel Charles [facility]-04908 Level 4 Est. Patient 18:54:02 CDT Alina Castaneda MD [facility]-82140 Level 3 Est. Patient 10:47:10 CDT Alina Castaneda MD [facility]-16985 Level 3 Est. Patient 09:22:20 [facility]38 Level 3 Est. Patient 16:39:43 CDT [facility] CPT-98819 Level 3 Est. Patient 16:05:16 CDT Alina Castaneda MD [facility] CPT-18823 Level 3 Est. Patient 00:29:15 CDT Alina Castaneda MD [facility] CPT-16361 Level 3 Est. Patient 10:49:22 STEAM BLOCKER [facility]-43200 Level 3 Est. Patient 21:30:19 STEAM BLOCKER Alina Castaneda MD [facility] CPT-37532 Level 4 Est. Patient 17:04:11 STEAM BLOCKER [facility] CPT-45648 Level 3 Est. Patient 15:34:11 STEAM BLOCKER [facility] CPT-66092 Level 2 Est. Patient 12:51:58 STEAM BLOCKER Alina Castaneda MD [facility] CPT-55721 Level 3 Est. Patient 13:20:01 STEAM BLOCKER Alina Castaneda MD [facility] CPT-36708 Level 3 Est. Patient 09:23:35 CDT Alina Castaneda MD PhD [facility] Procedures Code Procedure Name Date Entry Date Standard Description CPT-G0439 [facility] Annual Wellness Exam 15:49:52 STEAM BLOCKER CPT-98511 Level 3 Skilled Nursing 13:20:19 CDT CPT-TCMM Transitional Care Mgmt-Moderate 12:32:19 CDT CPT-80088 Level 2 Skilled Nursing 09:01:11 CDT CPT-59989 HGBA1C - LAB USE ONLY 09:30:27 STEAM BLOCKER CPT-72706 BMP - LAB USE ONLY 09:30:27 STEAM BLOCKER CPT-41047 Venipuncture Draw Fee 09:30:26 STEAM BLOCKER CPT-TCMM Transitional Care Mgmt-Moderate 10:25:31 CDT CPT-92721 Bladder Scan 14:34:53 CDT CPT-56377 Bladder Scan 14:39:01 STEAM BLOCKER CPT-TCMM Transitional Care Mgmt-Moderate 10:30:19 STEAM BLOCKER CPT-92896 Bladder Scan 12:36:44 CDT CPT-35346 Bladder Scan 21:54:06 CDT CPT-G0008 Administration of Influenza Virus Vaccine 13:05:26 CDT CPT-41257 Fluzone Quadrivalent Intramuscular Suspension 0.5 ML 13: 05:26 CDT CPT-57911 Administration single or combination vaccine inc oral 11 :49:51 CDT CPT-51770 Pneumovax 11:49:51 CDT CPT-70677 Ribs unilateral 2V 12:37:22 STEAM BLOCKER CPT-62014 Chest 2V Frontal and Lat 17:15:26 CDT CPT-80323 Abx/Therapy Injection 18:54:02 CDT CPT-J0696 Rocephin 1000 mg (Ceftriaxone) 16:00:32 CDT CPT-71190 Chest 2V Frontal and Lat 15:26:45 CDT CPT-31659 Chest 2V Frontal and Lat 10:23:27 CDT CPT-64741 Venipuncture Draw Fee 10:11:00 CDT CPT-36859 Administration single or combination vaccine inc oral 11 :56:38 CDT CPT-65750 Influenza split virus > age 3 11:56:38 CDT CPT-17273 Venipuncture Draw Fee 08:49:54 STEAM BLOCKER CPT-58786 EKG Trac and Interp 17:54:19 STEAM BLOCKER
--- OUTSIDE RECORDS SUMMARY | 2018-07-02 12:15 | XMS REPORT | Clinical Summary ---
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 [...] MD PhD ANXIETY DISORDER ICD-300.00 Inactive Shavonne Feilciano PA-C DIABETES, TYPE 2 ICD-250.00 Inactive Alina [...] Recheck labs in 3 months ATORVASTATIN CALCIUM 73397416090 Active Mya Ledezma MA Active VERAPAMIL HCL ER 180 MG ORAL TABLET EXTENDED RELEASE 1 tab BID VERAPAMIL HCL 14226198230 Active Shavonne Feliciano PA-C Active SEROQUEL 25 MG ORAL TABLET Take two tabs by mouth in the morning, take 4 tablets at night QUETIAPINE FUMARATE 55274687830 No Longer Active Shavonne Feliciano PA-C Active EFFEXOR XR 150 MG ORAL CAPSULE EXTENDED RELEASE 24 HOUR 1 tab daily VENLAFAXINE HCL 32281914273 Active Shavonne Feliciano PA-C Active QUETIAPINE FUMARATE 25 MG ORAL TABLET 2 tabs BID QUETIAPINE FUMARATE 01562686333 Active Shavonne Feliciano PA-C Active QUETIAPINE FUMARATE 100 MG ORAL TABLET 1 tab PO at HS QUETIAPINE FUMARATE 36723524289 Active Shavonne Feliciano PA-C Active AMARYL 2 MG ORAL TABLET give 2.5 tabs PO daily GLIMEPIRIDE 07394146570 No Longer Active Shavonne Feliciano PA-C Active AMARYL 2 MG ORAL TABLET give 2 tabs PO in the morning GLIMEPIRIDE 51236375349 Active Shavonne Feliciano PA-C Active FENOFIBRATE 145 MG ORAL TABLET 1 tab PO in the morning FENOFIBRATE 88451938784 Active Shavonne Feliciano PA-C Active SEROQUEL 100 MG ORAL TABLET 1 tab daily QUETIAPINE FUMARATE 48349749092 No Longer Active Shavonne Feliciano PA-C Active [facility] MELATONIN 3 MG ORAL TABLET give 1 tab by mouth at HS MELATONIN 93786328954 No Longer Active Gabrielle Marquez MA Active NOVOLOG FLEXPEN 100 UNIT/ML SUBCUTANEOUS SOLUTION PEN-INJECTOR sliding scale INSULIN ASPART 57048851181 Active Gabrielle Marquez MA Active METFORMIN HCL 1000 MG ORAL TABLET 1 tab by mouth BID METFORMIN HCL 15947859567 Active Gabrielle Marquez MA Active [facility] MELATONIN 3 MG ORAL TABLET 1 tab nightly MELATONIN 39270440622 Active Gabrielle Marquez MA Active TAMSULOSIN HCL 0.4 MG ORAL CAPSULE give 2 capsules PO each evening TAMSULOSIN HCL 06133283861 No Longer Active Gabrielle Marquez MA Active VITAMIN D 2000 UNIT ORAL CAPSULE Take one by mouth daily CHOLECALCIFEROL 74558641506 No Longer Active Gabrielle Marquez MA Active LATUDA 40 MG ORAL TABLET 1.5 tab by mouth in the afternoon LURASIDONE HCL 34634105627 Active Gabrielle Marquez MA Active LEVEMIR 100 UNIT/ML SUBCUTANEOUS SOLUTION 10 u at bedtime INSULIN DETEMIR 61385815115 Active Gabrielle Marquez MA Active TAMSULOSIN HCL 0.4 MG ORAL CAPSULE 2 every night for urine flow TAMSULOSIN HCL 76516977519 Active Gabrielle Marquez MA Active DIVALPROEX SODIUM 125 MG ORAL TABLET DELAYED RELEASE 1 tab each morning 02/17 DIVALPROEX SODIUM 35182751859 Active Gabrielle Marquez MA Active D 1000 TABLET 2 tab by mouth BID CHOLECALCIFEROL TABS 89275493724 Active Gabrielle Marquez MA Active ALIGN 4 MG ORAL CAPSULE 1 tab at hs PROBIOTIC PRODUCT 45824240541 Active Gabrielle Marquez MA Active CLONAZEPAM 1 MG ORAL TABLET 1 pill by mouth two times daily CLONAZEPAM 48274998450 Active Gabrielle Marquez MA Active OCEAN NASAL SPRAY SOLUTION 2 sprays in both nostrils every 8 hours as needed for dry mucous membranes SALINE SOLN 80043711470 Active Mason Loredo MD Active BETHANECHOL CHLORIDE 25 MG ORAL TABLET Take 1 tablet mouth four times a day BETHANECHOL CHLORIDE 09948768003 Active Mason Loredo MD Active [facility] LUBRICANT EYE DROPS 0.4-0.3 % OPHTHALMIC SOLUTION POLYETHYL GLYCOL-PROPYL GLYCOL 66901766680 No Longer Active Mason Loredo MD Active TYLENOL 8 HOUR 650 MG ORAL TABLET EXTENDED RELEASE 1 tab QID prn ACETAMINOPHEN 06022672218 No Longer Active Mason Loredo MD Active TOPAMAX 25 MG ORAL TABLET 1 tab BID PRN TOPIRAMATE 31407494987 Active Mason Loredo MD Active TIMOPTIC OCUDOSE 0.5 % OPHTHALMIC SOLUTION instill one drop into both eyes q12H TIMOLOL MALEATE 01000594207 Active Mason Loredo MD Active TRAZODONE HCL 100 MG ORAL TABLET 1 every night to prevent headaches TRAZODONE HCL 73723065027 No Longer Active Mason Loredo MD Active TRAVATAN Z 0.004 % OPHTHALMIC SOLUTION 1 drop each eye daily 2017 TRAVOPROST 35741378091 No Longer Active Mason Loredo MD Active LATUDA 60 MG ORAL TABLET 1 tab daily LURASIDONE HCL 76774042210 No Longer Active Mason Loredo MD Active MORPHINE SULFATE ER 30 MG ORAL TABLET EXTENDED RELEASE Take one capsule BID MORPHINE SULFATE 20930777790 No Longer Active Mason Loredo MD Active TRUE METRIX BLOOD GLUCOSE TEST IN VITRO STRIP Check blood sugars 3x/day. 2015 GLUCOSE BLOOD 21485262810 No Longer Active Mason Loredo MD Active TRUEPLUS LANCETS 30G 3x a day LANCETS 49124379940 No Longer Active Mason Loredo MD Active MYLANTA GAS RELIEF MAXIMUM STR 125 MG ORAL CAPSULE 30cc every 4 hours prn SIMETHICONE 73205628704 No Longer Active Mason Loredo MD Active IMODIUM A-D 2 MG ORAL TABLET 1 tab QID as needed LOPERAMIDE HCL 28897130468 No Longer Active Mason Loredo MD Active FLONASE ALLERGY RELIEF 50 MCG/ACT NASAL SUSPENSION One spray each nostril BID x 1 week then daily FLUTICASONE PROPIONATE 29290649796 No Longer Active Mason Loredo MD Active FLUVOXAMINE MALEATE 100 MG ORAL TABLET take one tab every AM et HS, and take 1 /2 tab at noon FLUVOXAMINE MALEATE 07227462050 No Longer Active Mason Loredo MD Active BD PEN NEEDLE MINI U/F 31G X 5 MM 4 a day INSULIN PEN NEEDLE 67800862397 No Longer Active Mason Loredo MD Active AMITIZA 24 MCG ORAL CAPSULE Take one capsule BID for constipation LUBIPROSTONE 30422796865 No Longer Active Mason Loredo MD Active TRUEPLUS LANCETS 30G 3 a day LANCETS 11577273852 No Longer Active Mason Loredo MD Active CORICIDIN HBP CONGESTION/COUGH 10-200 MG ORAL CAPSULE Take as directed on box as needed for cold/flu symptoms DEXTROMETHORPHAN- GUAIFENESIN 70987372316 No Longer Active Mason Loredo MD Active OMEGA-3 300 MG ORAL CAPSULE 4 caps by mouth daily OMEGA-3 FATTY ACIDS 58934951269 No Longer Active Mason Loredo MD Active HUMALOG KWIKPEN 100 UNIT/ML SUBCUTANEOUS SOLUTION PEN-INJECTOR sliding scale if needed INSULIN LISPRO (HUMAN) 51609346780 No Longer Active Mason Loredo MD Active TRUETEST TEST IN VITRO STRIP check blood sugars 3x/day GLUCOSE BLOOD 96380744467 No Longer Active Mason Loredo MD Active ALFUZOSIN HCL ER 10 MG ORAL TABLET EXTENDED RELEASE 24 HOUR 1 tablet daily ALFUZOSIN HCL 40799129620 No Longer Active Mason Loredo MD Active BD INSULIN SYRINGE 28G X 1/2" 1 ML 1 four times per day INSULIN SYRINGE-NEEDLE U-100 96670412544 No Longer Active Mason Loredo MD Active LEVEMIR FLEXTOUCH 100 UNIT/ML SUBCUTANEOUS SOLUTION PEN-INJECTOR 60 units SQ each evening, for diabetes INSULIN DETEMIR 28270966319 No Longer Active Mason Loredo MD Active LACTULOSE 20 GM/30ML ORAL SOLUTION give 30 Ml PO BID PRN LACTULOSE 77176325653 Active Mason Loredo MD Active COLACE 100 MG ORAL CAPSULE 1 tab BID PRN DOCUSATE SODIUM 49061716406 Active Mason Loredo MD Active LATANOPROST 0.005 % OPHTHALMIC SOLUTION instill 1 drop in both eyes at bed time LATANOPROST 67063503510 Active Mason Loredo MD Active MIRALAX ORAL POWDER 17g by mouth q12h, for constipation POLYETHYLENE GLYCOL 3350 57957914453 Active Mason Loredo MD Active IBUPROFEN 400 MG ORAL TABLET 1 tab Q6H PRN IBUPROFEN 64687082575 Active Mason Loredo MD Active FLUVOXAMINE MALEATE 50 MG ORAL TABLET 1 tab by mouth daily 04/01 FLUVOXAMINE MALEATE 66229222636 No Longer Active Mima Yoeloinaum NAILER HAND Active TRUE METRIX METER w/Device KIT Check blood sugars 3x/day BLOOD GLUCOSE MONITORING SUPPL 08689252182 Active Maljohn Ziglari TEACHER RESOURCE Active LATUDA 60 MG ORAL TABLET Take one by mouth daily LURASIDONE HCL 34004566133 No Longer Active Mima Erazo APRN Active [facility] MILK OF MAGNESIA 400 MG/5ML ORAL SUSPENSION 30ml by mouth bid prn MAGNESIUM HYDROXIDE 26797752998 Active Mason Loredo MD Active TRAVATAN Z 0.004 % OPHTHALMIC SOLUTION 1 gtt each eye daily TRAVOPROST 98163809406 No Longer Active Mason Loredo MD Active LISINOPRIL 20 MG ORAL TABLET 1 BID LISINOPRIL 03343839657 No Longer Active Mason Loredo MD Active ZOLPIDEM TARTRATE 10 MG ORAL TABLET take at bedtime ZOLPIDEM TARTRATE 35955739214 No Longer Active Mason Loredo MD Active HYDROCODONE-ACETAMINOPHEN 5-325 MG ORAL TABLET 2 tabs by mouth three times daily for pain HYDROCODONE-ACETAMINOPHEN 08712820424 No Longer Active Mason Loredo MD Active ZOFRAN 4 MG ORAL TABLET 1 po q4hr PRN Nausea ONDANSETRON HCL 08678395861 No Longer Active Mason Loredo MD Active LOMOTIL 2.5-0.025 MG ORAL TABLET take 1-2 tabs PO after each stool, no more than 8 in 24 hours DIPHENOXYLATE-ATROPINE 12536566712 No Longer Active Mason Loredo MD Active COLACE 100 MG ORAL CAPSULE 1 pill by mouth twice daily, for constipation 2014 DOCUSATE SODIUM 01353450716 No Longer Active Mima Erazo APRN Active TOLTERODINE TARTRATE 2 MG ORAL TABLET 1 pill twice daily, for bladder TOLTERODINE TARTRATE 42432894038 No Longer Active Vanessa Hickey MD Active AMITIZA 24 MCG ORAL CAPSULE Take one capsule BID for constipation. LUBIPROSTONE 63140195746 No Longer Active Vanessa Hickey MD Active METOPROLOL SUCCINATE ER 100 MG ORAL TABLET EXTENDED RELEASE 24 HOUR 1 by mouth daily for blood pressure METOPROLOL SUCCINATE 81370199565 No Longer Active Grace Azam RMA Active METFORMIN HCL ER 500 MG ORAL TABLET EXTENDED RELEASE 24 HOUR Take three tablets by mouth everyday METFORMIN HCL 15427924502 No Longer Active Grace Azam RMA Active LOVAZA 1 GM ORAL CAPSULE 4 daily (for triglycerides) [id number]-[id number] ETHYL ESTERS 79139736140 No Longer Active Grace Azam RMA Active TRAZODONE HCL 100 MG ORAL TABLET 1 tab by mouth for sleep TRAZODONE HCL 26088830822 No Longer Active Grace Azam RMA Active NOVOFINE 32G X 6 MM use one four times per day INSULIN PEN NEEDLE 01139998505 No Longer Active Grace Azam RMA Active BACTROBAN 2 % EXTERNAL CREAM Apply to affected area BID for up to 10 days MUPIROCIN CALCIUM 29089819027 No Longer Active Grace Azam RMA Active KEFLEX 500 MG ORAL CAPSULE 1 po BID x 7 days CEPHALEXIN 56765797832 No Longer Active Cherelle Avila APRN Active FLUVOXAMINE MALEATE 100 MG ORAL TABLET Take one (1) tablet by mouth am, 1/2 at noon FLUVOXAMINE MALEATE 04156291095 No Longer Active Mima Erazo APRN Active FLUVOXAMINE MALEATE 100 MG ORAL TABLET Take 1/2 tab at noon 03/04 FLUVOXAMINE MALEATE 12187780653 No Longer Active Cherelle Avila ALBAN Active ACCU-CHEK ROSA DEVICE Use device to check blood sugars BLOOD GLUCOSE MONITORING SUPPL 63121974617 No Longer Active Marvel MARROQUIN Active ACCU-CHEK ROSA IN VITRO STRIP use strips with device to check blood sugars 3 times daily GLUCOSE BLOOD 34493210061 No Longer Active Mallashondaeh 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 TEACHER RESOURCE Active VERAPAMIL HCL ER 180 MG ORAL TABLET EXTENDED RELEASE 1 pill by mouth twice daily, for migraine prevention VERAPAMIL HCL 98612341308 Active Mima Aguilareloinajerrell ALBAN Active CYCLOBENZAPRINE HCL 10 MG ORAL TABLET 1 tablet by mouth three times daily, scheduled CYCLOBENZAPRINE HCL 30451788655 No Longer Active Alina Castaneda MD PhD Active HUMALOG 100 UNIT/ML SUBCUTANEOUS SOLUTION Take 20 units with breakfast, 10u with lunch and suppetr. INSULIN LISPRO (HUMAN) 31856460903 No Longer Active Alina Castaneda MD PhD Active TRUETEST TEST IN VITRO STRIP check sugars 4x/day GLUCOSE BLOOD 71111487222 No Longer Active Alina Castaneda MD PhD Active MORPHINE SULFATE 30 MG ORAL TABLET 1 pill by mouth twice daily, for pain 2013 MORPHINE SULFATE 09581286275 No Longer Active Mason Loredo MD Active ACYCLOVIR 400 MG ORAL TABLET 1 pill three times daily x 5 days, for cold sore outbreak ACYCLOVIR 36021381533 No Longer Active Alina Castaneda MD PhD Active PENICILLIN V POTASSIUM 500 MG ORAL TABLET 1 pill by mouth three times daily PENICILLIN V POTASSIUM 29616068025 No Longer Active Alina Castaneda MD PhD Active UROXATRAL 10 MG ORAL TABLET EXTENDED RELEASE 24 HOUR Take 1 tablet by mouth daily ALFUZOSIN HCL 31987397533 No Longer Active Alina Castaneda MD PhD Active THIOTHIXENE 5 MG ORAL CAPSULE by mouth twice a day THIOTHIXENE 16447072281 No Longer Active Alina Castaneda MD PhD Active ZYPREXA 7.5 MG ORAL TABLET 1 at HS OLANZAPINE 23805820903 No Longer Active Alina Castaneda MD PhD Active DETROL LA 4 MG ORAL CAPSULE EXTENDED RELEASE 24 HOUR Take 1 tablet by mouth daily TOLTERODINE TARTRATE 01542052238 No Longer Active Alina Castaneda MD PhD Active TERESE CONTOUR TEST IN VITRO STRIP monitor blood sugars 3x/day GLUCOSE BLOOD 02691095962 No Longer Active Alina Castaneda MD PhD Active EQL TRUETEST TEST IN VITRO STRIP Test blood sugar TID GLUCOSE BLOOD 49189870133 No Longer Active Alina Castaneda MD PhD Active FLUTICASONE PROPIONATE 50 MCG/ACT NASAL SUSPENSION 2 sprays each nostril qDay x 30 days FLUTICASONE PROPIONATE 96838979007 No Longer Active Alina Castaneda MD PhD Active IBUPROFEN 200 MG ORAL TABLET 1 Q 6 hr. PRN IBUPROFEN 16171388838 No Longer Active Alina Castaneda MD PhD Active NIACIN ER 500 MG ORAL TABLET EXTENDED RELEASE 4 qHS (for triglycerides) 01/13 NIACIN 11370255366 No Longer Active Alina Castaneda MD PhD Active SAPHRIS 5 MG SUBLINGUAL TABLET SUBLINGUAL by mouth twice a day ASENAPINE MALEATE 73849104817 No Longer Active Marvel MARROQUIN Active ACETAMINOPHEN 500 MG ORAL TABLET 2 Q 6 hr. PRN ACETAMINOPHEN 76863715449 No Longer Active Mallashondaeh Ziglari TEACHER RESOURCE Active ORPHENADRINE CITRATE ER 100 MG ORAL TABLET EXTENDED RELEASE 12 HOUR 1 every 12 hr. as needed ORPHENADRINE CITRATE 79010141435 No Longer Active Alina Castaneda MD PhD Active NIACIN ER 500 MG ORAL TABLET EXTENDED RELEASE 2 qHS NIACIN 86127249817 No Longer Active Alina Castaneda MD PhD Active AMOXICILLIN 500 MG ORAL CAPSULE 2 po BID x 10 days AMOXICILLIN 68156621371 No Longer Active Alina Castaneda MD PhD Active HYDROCODONE-ACETAMINOPHEN 7.5-325 MG ORAL TABLET 1 four times a day as needed for pain HYDROCODONE-ACETAMINOPHEN 66160367876 No Longer Active Alina Castaneda MD PhD Active DOXEPIN HCL 10 MG ORAL CAPSULE Take 1 tablet by mouth daily DOXEPIN HCL 08598621263 No Longer Active Salina Han [facility] Active NAVANE 10 MG CAPS 1/2 tablet twice a day THIOTHIXENE No Longer Active Salina Han [facility] Active CYCLOBENZAPRINE HCL 10 MG ORAL TABLET 1/2 tablet by mouth every 8 hours as needed for muscle spasms CYCLOBENZAPRINE HCL 82216535788 No Longer Active Alina Castaneda MD PhD Active BACTROBAN 2 % EXTERNAL CREAM apply to ear and nose twice daily MUPIROCIN CALCIUM 92560867161 No Longer Active Alina Castaneda MD PhD Active HYDROCODONE-ACETAMINOPHEN 5-325 MG ORAL TABLET take one tablet by mouth every four hours as needed for pain HYDROCODONE-ACETAMINOPHEN 94393664760 No Longer Active Alina Castaneda MD PhD Active ZYPREXA 5 MG ORAL TABLET take one tablet by mouth every evening OLANZAPINE 80743776496 No Longer Active Alina Castaneda MD PhD Active ALBUTEROL SULFATE (2.5 MG/3ML) 0.083% INHALATION NEBULIZATION SOLUTION one vial per nebulizer TID and PRN cough/soa ALBUTEROL SULFATE 55065900995 No Longer Active Alina Castaneda MD PhD Active GUAIFENESIN ER 600 MG ORAL TABLET EXTENDED RELEASE 12 HOUR 1 tablet by mouth twice daily if needed for cough GUAIFENESIN 25828478868 No Longer Active Marvel MARROQUIN Active AZITHROMYCIN 500 MG INTRAVENOUS SOLUTION RECONSTITUTED 1 po q day AZITHROMYCIN 41542740028 No Longer Active Alina Castaneda MD PhD Active PROMETHAZINE-CODEINE 6.25-10 MG/5ML ORAL SYRUP 1 tsp po q 6 hours prn cough PROMETHAZINE-CODEINE 12733242766 No Longer Active Alina Castaneda MD PhD Active CEFDINIR 300 MG ORAL CAPSULE by mouth twice a day CEFDINIR 76377524358 No Longer Active Alina Castaneda MD PhD Active METFORMIN HCL ER 500 MG ORAL TABLET EXTENDED RELEASE 24 HOUR Take 3 tablets by mouth everyday METFORMIN HCL 13062115349 No Longer Active Alina Castaneda MD PhD Active LEVEMIR 100 UNIT/ML SUBCUTANEOUS SOLUTION 90 units SQ qHS INSULIN DETEMIR 36242922452 No Longer Active Marvel MARROQUIN Active TOPROL XL 100 MG ORAL TABLET EXTENDED RELEASE 24 HOUR 1 @ HS METOPROLOL SUCCINATE 77818784356 No Longer Active Marvel MARROQUIN Active ALLOPURINOL 300 MG ORAL TABLET Take one by mouth daily ALLOPURINOL 80466497331 Active Mima Erazo NAILER HAND Active ZYPREXA 10 MG ORAL TABLET Take one by mouth daily OLANZAPINE 44026661200 No Longer Active Alina Castaneda MD PhD Active NOVOLOG 100 UNIT/ML SUBCUTANEOUS SOLUTION 40 units with every meal INSULIN ASPART 06718217861 No Longer Active Alina Castaneda MD PhD Active VERAPAMIL HCL ER 120 MG ORAL TABLET EXTENDED RELEASE 1 qPM 09/08 VERAPAMIL HCL 13419132865 No Longer Active Salina ROJAS Active ZYPREXA 15 MG ORAL TABLET Take 1 tablet by mouth daily OLANZAPINE 35913596258 No Longer Active Marvel MARROQUIN Active ALBUTEROL SULFATE (2.5 MG/3ML) 0.083% INHALATION NEBULIZATION SOLUTION 1 neb tid and prn cough ALBUTEROL SULFATE 69136198186 No Longer Active Alina Castaneda MD PhD Active LANTUS 100 UNIT/ML SUBCUTANEOUS SOLUTION 60 units sq q hs INSULIN GLARGINE 96515786302 No Longer Active CRYSTAL Suarez Active ALBUTEROL SULFATE (2.5 MG/3ML) 0.083% INHALATION NEBULIZATION SOLUTION 1 neb tid and prn cough ALBUTEROL SULFATE (2.5 MG/3ML) 0.083% INHALATION NEBULIZATION SOLUTION 815323 ALBUTEROL SULFATE Inactive ZYPREXA 15 MG ORAL TABLET Take 1 tablet by mouth daily ZYPREXA 15 MG ORAL TABLET 242078 OLANZAPINE Inactive VERAPAMIL HCL ER 120 MG ORAL TABLET EXTENDED RELEASE 1 qPM 09/08 VERAPAMIL HCL ER 120 MG ORAL TABLET EXTENDED RELEASE VERAPAMIL HCL Inactive ZYPREXA 10 MG ORAL TABLET Take one by mouth daily ZYPREXA 10 MG ORAL TABLET 704999 OLANZAPINE Inactive TOPROL XL 100 MG ORAL TABLET EXTENDED RELEASE 24 HOUR 1 @ HS TOPROL XL 100 MG ORAL TABLET EXTENDED RELEASE 24 HOUR METOPROLOL SUCCINATE Inactive LEVEMIR 100 UNIT/ML SUBCUTANEOUS SOLUTION 90 units SQ qHS LEVEMIR 100 UNIT/ML SUBCUTANEOUS SOLUTION INSULIN DETEMIR Inactive PROMETHAZINE-CODEINE 6.25-10 MG/5ML ORAL SYRUP 1 tsp po q 6 hours prn cough PROMETHAZINE-CODEINE 6.25-10 MG/5ML ORAL SYRUP 850955 PROMETHAZINE-CODEINE Inactive GUAIFENESIN ER 600 MG ORAL TABLET EXTENDED RELEASE 12 HOUR 1 tablet by mouth twice daily if needed for cough GUAIFENESIN ER 600 MG ORAL TABLET EXTENDED RELEASE 12 HOUR GUAIFENESIN Inactive ALBUTEROL SULFATE (2.5 MG/3ML) 0.083% INHALATION NEBULIZATION SOLUTION one vial per nebulizer TID and PRN cough/soa ALBUTEROL SULFATE (2.5 MG/3ML) 0.083% INHALATION NEBULIZATION SOLUTION 312002 ALBUTEROL SULFATE Inactive ZYPREXA 5 MG ORAL TABLET take one tablet by mouth every evening ZYPREXA 5 MG ORAL TABLET 983121 OLANZAPINE Inactive HYDROCODONE-ACETAMINOPHEN 5-325 MG ORAL TABLET take one tablet by mouth every four hours as needed for pain HYDROCODONE-ACETAMINOPHEN 5-325 MG ORAL TABLET 047968 HYDROCODONE-ACETAMINOPHEN Inactive BACTROBAN 2 % EXTERNAL CREAM apply to ear and nose twice daily BACTROBAN 2 % EXTERNAL CREAM 372233 MUPIROCIN CALCIUM Inactive CYCLOBENZAPRINE HCL 10 MG ORAL TABLET 1/2 tablet by mouth every 8 hours as needed for muscle spasms CYCLOBENZAPRINE HCL 10 MG ORAL TABLET 092202 CYCLOBENZAPRINE HCL Inactive NAVANE 10 MG CAPS 1/2 tablet twice a day NAVANE 10 MG CAPS THIOTHIXENE Inactive DOXEPIN HCL 10 MG ORAL CAPSULE Take 1 tablet by mouth daily DOXEPIN HCL 10 MG ORAL CAPSULE 2586211 DOXEPIN HCL Inactive HYDROCODONE-ACETAMINOPHEN 7.5-325 MG ORAL TABLET 1 four times a day as needed for pain HYDROCODONE-ACETAMINOPHEN 7.5-325 MG ORAL TABLET 426560 HYDROCODONE-ACETAMINOPHEN Inactive NIACIN ER 500 MG ORAL [...] hr. PRN ACETAMINOPHEN 500 MG ORAL TABLET 432128 ACETAMINOPHEN Inactive SAPHRIS 5 MG SUBLINGUAL TABLET SUBLINGUAL by mouth twice a day SAPHRIS 5 MG SUBLINGUAL TABLET SUBLINGUAL ASENAPINE MALEATE Inactive NIACIN ER 500 MG ORAL TABLET EXTENDED RELEASE 4 qHS (for triglycerides) 01/13 NIACIN ER 500 MG ORAL TABLET EXTENDED RELEASE NIACIN Inactive IBUPROFEN 200 MG ORAL TABLET 1 Q 6 hr. PRN IBUPROFEN 200 MG ORAL TABLET 582658 IBUPROFEN Inactive FLUTICASONE PROPIONATE 50 MCG/ACT NASAL SUSPENSION 2 sprays each nostril qDay x 30 days FLUTICASONE PROPIONATE 50 MCG/ACT NASAL SUSPENSION 7029430 FLUTICASONE PROPIONATE Inactive EQL TRUETEST TEST IN [...] at HS ZYPREXA 7.5 MG ORAL TABLET 459807 OLANZAPINE Inactive THIOTHIXENE 5 MG ORAL CAPSULE by mouth twice a day THIOTHIXENE 5 MG ORAL CAPSULE 261965 THIOTHIXENE Inactive UROXATRAL 10 MG ORAL TABLET EXTENDED RELEASE 24 HOUR Take 1 tablet by mouth daily UROXATRAL 10 MG ORAL TABLET EXTENDED RELEASE 24 HOUR ALFUZOSIN HCL Inactive ACYCLOVIR 400 MG ORAL TABLET 1 pill three times daily x 5 days, for cold sore outbreak ACYCLOVIR 400 MG ORAL TABLET 164689 ACYCLOVIR Inactive TRUETEST TEST IN VITRO STRIP check sugars 4x/day TRUETEST TEST IN VITRO STRIP GLUCOSE BLOOD Inactive HUMALOG 100 UNIT/ML SUBCUTANEOUS SOLUTION Take 20 units with breakfast, 10u with lunch and suppetr. HUMALOG 100 UNIT/ML SUBCUTANEOUS SOLUTION INSULIN LISPRO (HUMAN) Inactive CYCLOBENZAPRINE HCL 10 MG ORAL TABLET 1 tablet by mouth three times daily, scheduled CYCLOBENZAPRINE HCL 10 MG ORAL TABLET 996194 CYCLOBENZAPRINE HCL Inactive ACCU-CHEK ROSA IN VITRO STRIP use strips with device to check blood sugars 3 times daily ACCU-CHEK ROSA IN VITRO STRIP GLUCOSE BLOOD Inactive ACCU-CHEK ROSA DEVICE Use device to check blood sugars ACCU-CHEK ROSA DEVICE BLOOD GLUCOSE MONITORING SUPPL Inactive FLUVOXAMINE MALEATE 100 MG ORAL TABLET Take 1/2 tab at noon 03/04 FLUVOXAMINE MALEATE 100 MG ORAL TABLET 307663 FLUVOXAMINE MALEATE Inactive FLUVOXAMINE MALEATE 100 MG ORAL TABLET Take one (1) tablet by mouth am, 1/2 at noon FLUVOXAMINE MALEATE 100 MG ORAL TABLET 812506 FLUVOXAMINE MALEATE Inactive BACTROBAN 2 % EXTERNAL CREAM Apply to affected area BID for up to 10 days BACTROBAN 2 % EXTERNAL CREAM 910131 MUPIROCIN CALCIUM Inactive NOVOFINE 32G X 6 MM use one four times per day NOVOFINE 32G X 6 MM INSULIN PEN NEEDLE Inactive TRAZODONE HCL 100 MG ORAL TABLET 1 tab by mouth for sleep TRAZODONE HCL 100 MG ORAL TABLET 550784 TRAZODONE HCL Inactive LOVAZA 1 GM ORAL CAPSULE 4 daily (for triglycerides) LOVAZA 1 GM ORAL CAPSULE 962901 [id number] ETHYL ESTERS Inactive METFORMIN HCL ER 500 [...] bladder TOLTERODINE TARTRATE 2 MG ORAL TABLET 188139 TOLTERODINE TARTRATE Inactive COLACE 100 MG ORAL CAPSULE 1 pill by mouth twice daily, for constipation 2014 COLACE 100 MG ORAL CAPSULE 1583516 DOCUSATE SODIUM Inactive LOMOTIL 2.5-0.025 MG ORAL TABLET take 1-2 tabs PO after each stool, no more than 8 in 24 hours LOMOTIL 2.5-0.025 MG ORAL TABLET 6703875 DIPHENOXYLATE-ATROPINE Inactive ZOFRAN 4 MG ORAL TABLET 1 po q4hr PRN Nausea ZOFRAN 4 MG ORAL TABLET 427020 ONDANSETRON HCL Inactive HYDROCODONE-ACETAMINOPHEN 5-325 MG ORAL TABLET 2 tabs by mouth three times daily for pain HYDROCODONE-ACETAMINOPHEN 5-325 MG ORAL TABLET 827268 HYDROCODONE-ACETAMINOPHEN Inactive ZOLPIDEM TARTRATE 10 MG ORAL TABLET take at bedtime ZOLPIDEM TARTRATE 10 MG ORAL TABLET 386272 ZOLPIDEM TARTRATE Inactive LISINOPRIL 20 MG ORAL TABLET 1 BID LISINOPRIL 20 MG ORAL TABLET 661026 LISINOPRIL Inactive TRAVATAN Z 0.004 % OPHTHALMIC SOLUTION 1 gtt each eye daily TRAVATAN Z 0.004 % OPHTHALMIC SOLUTION TRAVOPROST Inactive LATUDA 60 MG ORAL TABLET Take one by mouth daily LATUDA 60 MG ORAL TABLET LURASIDONE HCL Inactive FLUVOXAMINE MALEATE 50 MG ORAL TABLET 1 tab by mouth daily 04/01 FLUVOXAMINE MALEATE 50 MG ORAL TABLET 523594 FLUVOXAMINE MALEATE Inactive LEVEMIR FLEXTOUCH 100 UNIT/ML [...] 30G 3 a day TRUEPLUS LANCETS 30G [id number] LANCETS Inactive AMITIZA 24 MCG ORAL CAPSULE [...] noon FLUVOXAMINE MALEATE 100 MG ORAL TABLET 763219 FLUVOXAMINE MALEATE Inactive FLONASE ALLERGY RELIEF 50 MCG/ACT NASAL SUSPENSION One spray each nostril BID x 1 week then daily FLONASE ALLERGY RELIEF 50 MCG/ACT NASAL SUSPENSION 1909371 FLUTICASONE PROPIONATE Inactive IMODIUM A-D 2 MG ORAL TABLET 1 tab QID as needed IMODIUM A-D 2 MG ORAL TABLET 062002 LOPERAMIDE HCL Inactive MYLANTA GAS RELIEF MAXIMUM STR 125 MG ORAL CAPSULE 30cc every 4 hours prn MYLANTA GAS RELIEF MAXIMUM STR 125 MG ORAL CAPSULE SIMETHICONE Inactive TRUEPLUS LANCETS 30G 3x a day TRUEPLUS LANCETS 30G [id number] LANCETS Inactive TRUE METRIX BLOOD GLUCOSE TEST [...] headaches TRAZODONE HCL 100 MG ORAL TABLET 014226 TRAZODONE HCL Inactive TYLENOL 8 HOUR 650 [...] evening TAMSULOSIN HCL 0.4 MG ORAL CAPSULE 908190 TAMSULOSIN HCL Inactive [facility] MELATONIN 3 MG ORAL TABLET give 1 tab by mouth at HS [facility] MELATONIN 3 MG ORAL TABLET 777747 MELATONIN Inactive SEROQUEL 100 MG ORAL TABLET 1 tab daily SEROQUEL 100 MG ORAL TABLET 307902 QUETIAPINE FUMARATE Inactive AMARYL 2 MG ORAL TABLET give 2.5 tabs PO daily AMARYL 2 MG ORAL TABLET 469862 GLIMEPIRIDE Inactive SEROQUEL 25 MG ORAL TABLET Take two tabs by mouth in the morning, take 4 tablets at night SEROQUEL 25 MG ORAL TABLET 211611 QUETIAPINE FUMARATE Inactive CEFDINIR 300 MG ORAL CAPSULE by mouth twice a day CEFDINIR 300 MG ORAL CAPSULE 267542 CEFDINIR Inactive AZITHROMYCIN 500 MG INTRAVENOUS SOLUTION RECONSTITUTED 1 po q day AZITHROMYCIN 500 MG INTRAVENOUS SOLUTION RECONSTITUTED [id number] AZITHROMYCIN Inactive AMOXICILLIN 500 MG ORAL CAPSULE 2 po BID x 10 days AMOXICILLIN 500 MG ORAL CAPSULE 697569 AMOXICILLIN Inactive PENICILLIN V POTASSIUM 500 MG ORAL TABLET 1 pill by mouth three times daily PENICILLIN V POTASSIUM 500 MG ORAL TABLET 619412 PENICILLIN V POTASSIUM Inactive KEFLEX 500 MG ORAL CAPSULE 1 po BID x 7 days KEFLEX 500 MG ORAL CAPSULE 753202 CEPHALEXIN Inactive Immunizations Vaccine Administration Date Value [...] Fluvirin, Fluarix, Agriflu(>=18 yo)) Fluzone (>3 yrs.) [RIN295] Influenza, seasonal, injectable pneumococcal immunization administered Pneumovax [...] ... - Chemistry sodium, serum 135 mmol/L 419-548 9749/08/22 carbon dioxide, venous blood 28.4 mmol/L 21.0-32.0 [...] mg/g {creat} 0-29 cholesterol, serum 263 mg/dL 770-005 0759/08/22 triglyceride, serum, fasting 1312 mg/dL 30-200 HDL [...] ordered Encounters Code Encounter Date Provider Facility CPT-83648 01167-Iew Vst-Est Level III 11:00:25 [facility] Level 3 Est. Patient 09:12:14 DIABETES SOLUTIONS SPECIALIST [facility] Est[facility] Patient 16:52:51 CDT Vanessa Hickey MD [facility] CPT-04738 Level 3 Est. Patient 17:40:16 CDT [facility]64943 Level 3 Est. Patient 14:34:52 CDT Vanessa Hickey MD [facility]-81161 Level 3 Est. Patient 16:27:51 [facility]T [facility]63911 Level 3 Est. Patient 14:39:00 DIABETES SOLUTIONS SPECIALIST Vanessa Hickey MD [facility] CPT-37104 Level 2 Est. Patient 18:43:34 CDT Mima Erazo [facility] CPT-14603 Level 3 Est. Patient 16:22:09 CDT Cherelle Avila [facility] CPT-97856 Level 4 Est. Patient 17:55:14 CDT Mima Erazo [facility] CPT-65724 Level 2 Est. Patient 17:13:21 CDT Alina Castaneda MD PhD [facility] CPT-72582 Level 3 Est. Patient 14:46:15 CDT Vanessa Hickey MD [facility]-41387 Level 3 Est. Patient 09:34:56 CDT Alina Castaneda MD [facility]-78321 Level 3 Est. Patient 21:40:19 CDT Mima Erazo APRN [facility]-03929 Level 3 Est. Patient 09:26:40 CDT Marvel Charles [facility]-15367 Level 3 Est. Patient 12:36:43 CDT Vanessa Hickey MD [facility]-47593 Level 3 Est. Patient 12:57:49 CDT Vanessa Hickey MD [facility]-82535 Level 3 Est. Patient 00:28:25 CDT Alina Castaneda MD [facility]89182 Level 2 Est. Patient 12:52:14 CDT Alina Castaneda MD [facility]-69528 Level 3 Est. Patient 11:51:18 DIABETES SOLUTIONS SPECIALIST Alina Castaneda MD [facility]-14813 Level 3 Est. Patient 10:09:22 DIABETES SOLUTIONS SPECIALIST Alina Castaneda [facility]55518 Level 3 Est. Patient 14:36:26 DIABETES SOLUTIONS SPECIALIST Marvel Charles [facility]-49733 Level 3 Est. Patient 13:34:47 DIABETES SOLUTIONS SPECIALIST Alina Castaneda MD [facility]-22934 Level 3 Est. Patient 19:52:08 DIABETES SOLUTIONS SPECIALIST Alina Castaneda MD [facility] [id number] Level 3 Est. Patient 10:01:51 DIABETES SOLUTIONS SPECIALIST Marvel Charles [facility]-63155 Level 3 Est. Patient 21:54:06 CDT Vanessa Hickey MD [facility]-51264 Level 3 Est. Patient 08:54:46 CDT Alina Castaneda MD [facility]-46095 Level 3 Est. Patient 09:32:11 CDT Marvel Araceli [facility]-73257 Level 3 Est. Patient 12:02:49 CDT Alina Castaneda MD [facility]-59625 Level 3 Est. Patient 19:17:33 CDT Alina Castaneda MD [facility]-23530 Level 3 Est. Patient 13:19:10 CDT Brookslashondanivia Araceli [facility]-06947 Level 3 Est. Patient 08:20:05 CDT Alina Castaneda MD [facility]-46837 Level 3 Est. Patient 15:17:18 CDT Alina Castaneda MD [facility]-14834 Level 3 Est. Patient 14:25:36 DIABETES SOLUTIONS SPECIALIST [facility]-75635 Level 3 Est. Patient 10:09:15 DIABETES SOLUTIONS SPECIALIST Marvel Thurstonestela [facility] CPT-99036 Level 3 Est. Patient 21:28:43 CDT Alina Castaneda MD [facility]-48631 Level 3 Est. Patient 15:20:11 CDT Brooksjohn Charles [facility]-19868 Level 4 Est. Patient 19:08:12 CDT Alina Castaneda MD [facility] [id number] Level 3 Est. Patient 15:06:39 CDT [facility]-61923 Level 4 Est. Patient 17:48:15 CDT Alina Castaneda MD [facility]-58322 Level 3 Est. Patient 14:53:49 CDT Alina Castaneda MD [facility]-95778 Level 3 Est. Patient 09:35:16 CDT Alina Castaneda MD [facility]-59562 Level 3 Est. Patient 12:23:22 CDT Alina Castaneda MD [facility]-19469 Level 3 Est. Patient 16:19:15 CDT Alina Castaneda MD [facility]-66826 Level 3 Est. Patient 21:39:56 DIABETES SOLUTIONS SPECIALIST Alina Castaneda MD [facility] [id number] Level 4 Est. Patient 14:12:56 DIABETES SOLUTIONS SPECIALIST Alina Castaneda MD [facility]-86911 Level 2 Est. Patient 15:34:57 DIABETES SOLUTIONS SPECIALIST Alina Castaneda MD [facility]-11080 Level 3 Est. Patient 12:17:04 DIABETES SOLUTIONS SPECIALIST Alina Castaneda MD [facility]-76646 Level 3 Est. Patient 09:18:18 DIABETES SOLUTIONS SPECIALIST Marvel Charles [facility]-23195 Level 2 Est. Patient 21:50:24 CDT Alina Castaneda MD [facility]-48169 Level 3 Est. Patient 09:17:28 CDT Marvel Charles [facility]-74990 Level 4 Est. Patient 18:54:02 CDT Alina Castaneda MD [facility]-59086 Level 3 Est. Patient 10:47:10 CDT Alina Castaneda MD [facility]-00862 Level 3 Est. Patient 09:22:20 [facility]32966 Level 3 Est. Patient 16:39:43 CDT [facility] CPT-97156 Level 3 Est. Patient 16:05:16 CDT Alina Castaneda MD [facility] CPT-21919 Level 3 Est. Patient 00:29:15 CDT Alina Castaneda MD [facility] CPT-51357 Level 3 Est. Patient 10:49:22 DIABETES SOLUTIONS SPECIALIST [facility]-59868 Level 3 Est. Patient 21:30:19 DIABETES SOLUTIONS SPECIALIST Alina Castaneda MD [facility] CPT-92914 Level 4 Est. Patient 17:04:11 DIABETES SOLUTIONS SPECIALIST [facility] CPT-28597 Level 3 Est. Patient 15:34:11 DIABETES SOLUTIONS SPECIALIST [facility] CPT-96378 Level 2 Est. Patient 12:51:58 DIABETES SOLUTIONS SPECIALIST Alina Castaneda MD [facility] CPT-27773 Level 3 Est. Patient 13:20:01 DIABETES SOLUTIONS SPECIALIST Alina Castaneda MD [facility] CPT-80988 Level 3 Est. Patient 09:23:35 CDT Alina Castaneda MD PhD [facility] Procedures Code Procedure Name Date Entry Date Standard Description CPT-G0439 [facility] Annual Wellness Exam 15:49:52 DIABETES SOLUTIONS SPECIALIST CPT-52244 Level 3 Custodial 13:20:19 CDT CPT-TCMM Transitional Care Mgmt-Moderate 12:32:19 CDT CPT-54920 Level 2 Custodial 09:01:11 CDT CPT-58083 HGBA1C - LAB USE ONLY 09:30:27 DIABETES SOLUTIONS SPECIALIST CPT-82887 BMP - LAB USE ONLY 09:30:27 DIABETES SOLUTIONS SPECIALIST CPT-50030 Venipuncture Draw Fee 09:30:26 DIABETES SOLUTIONS SPECIALIST CPT-TCMM Transitional Care Mgmt-Moderate 10:25:31 CDT CPT-98422 Bladder Scan 14:34:53 CDT CPT-30714 Bladder Scan 14:39:01 DIABETES SOLUTIONS SPECIALIST CPT-TCMM Transitional Care Mgmt-Moderate 10:30:19 DIABETES SOLUTIONS SPECIALIST CPT-46680 Bladder Scan 12:36:44 CDT CPT-70901 Bladder Scan 21:54:06 CDT CPT-G0008 Administration of Influenza Virus Vaccine 13:05:26 CDT CPT-57746 Fluzone Quadrivalent Intramuscular Suspension 0.5 ML 13: 05:26 CDT CPT-89628 Administration single or combination vaccine inc oral 11 :49:51 CDT CPT-24397 Pneumovax 11:49:51 CDT CPT-96761 Ribs unilateral 2V 12:37:22 DIABETES SOLUTIONS SPECIALIST CPT-22270 Chest 2V Frontal and Lat 17:15:26 CDT CPT-88235 Abx/Therapy Injection 18:54:02 CDT CPT-J0696 Rocephin 1000 mg (Ceftriaxone) 16:00:32 CDT CPT-57185 Chest 2V Frontal and Lat 15:26:45 CDT CPT-88887 Chest 2V Frontal and Lat 10:23:27 CDT CPT-13927 Venipuncture Draw Fee 10:11:00 CDT CPT-78193 Administration single or combination vaccine inc oral 11 :56:38 CDT CPT-79862 Influenza split virus > age 3 11:56:38 CDT CPT-82421 Venipuncture Draw Fee 08:49:54 DIABETES SOLUTIONS SPECIALIST CPT-43400 EKG Trac and Interp 17:54:19 DIABETES SOLUTIONS SPECIALIST
--- OUTSIDE RECORDS SUMMARY | 2018-07-02 12:17 | XMS REPORT | Clinical Summary ---
Author Author Admin, MIKEE Organization [facility] [employer] Address Unknown Phone Unavailable Allergies, Adverse Reactions, 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 Erazo PUMP TECHNICIAN Benign paroxysmal positional vertigo Vertigo, benign paroxysmal position 386.11 Inactive Mima Erazo PUMP TECHNICIAN Benign paroxysmal positional vertigo High-risk sexual behavior [...] Developmental speech and language disorder 315.39 Active Sahvonne Najeraman PA-C Other developmental speech disorder Irritable bowel syndrome with diarrhea 564.1 Active Shavonne Najeraman PA-C Irritable bowel syndrome Major depressive disorder, recurrent, in partial remission 296.30 Active Shavonne Najeraman PA-C Major depressive disorder, recurrent episode, unspecified degree Migraine, intractable 346.91 Active Shavonne Njaeraman PA-C Migraine, unspecified, with intractable migraine, so [...] Recheck labs in 3 months ATORVASTATIN CALCIUM 23211176611 Active Mya Ledezma MA Active VERAPAMIL HCL ER 180 MG ORAL TABLET EXTENDED RELEASE 1 tab BID VERAPAMIL HCL 13458951291 Active Shavonne Feliciano PA-C Active SEROQUEL 25 MG ORAL TABLET Take two tabs by mouth in the morning, take 4 tablets at night QUETIAPINE FUMARATE 54373046080 No Longer Active Shavonne Feliciano PA-C Active EFFEXOR XR 150 MG ORAL CAPSULE EXTENDED RELEASE 24 HOUR 1 tab daily VENLAFAXINE HCL 64393786455 Active Shavonne Feliciano PA-C Active QUETIAPINE FUMARATE 25 MG ORAL TABLET 2 tabs BID QUETIAPINE FUMARATE 38578723954 Active Shavonne Feliciano PA-C Active QUETIAPINE FUMARATE 100 MG ORAL TABLET 1 tab PO at HS QUETIAPINE FUMARATE 54928040753 Active Shavonne Feliciano PA-C Active AMARYL 2 MG ORAL TABLET give 2.5 tabs PO daily GLIMEPIRIDE 61511245194 No Longer Active Shavonne Feliciano PA-C Active AMARYL 2 MG ORAL TABLET give 2 tabs PO in the morning GLIMEPIRIDE 06622916644 Active Shavonne Feliciano PA-C Active FENOFIBRATE 145 MG ORAL TABLET 1 tab PO in the morning FENOFIBRATE 82229760034 Active Shavonne Feliciano PA-C Active SEROQUEL 100 MG ORAL TABLET 1 tab daily QUETIAPINE FUMARATE 89099800150 No Longer Active Shavonne Feliciano PA-C Active [facility] MELATONIN 3 MG ORAL TABLET give 1 tab by mouth at HS MELATONIN 95511609550 No Longer Active Gabrielle Marquez MA Active NOVOLOG FLEXPEN 100 UNIT/ML SUBCUTANEOUS SOLUTION PEN-INJECTOR sliding scale INSULIN ASPART 42345710530 Active Gabrielle Marquez MA Active METFORMIN HCL 1000 MG ORAL TABLET 1 tab by mouth BID METFORMIN HCL 60041393851 Active Gabrielle Marquez MA Active [facility] MELATONIN 3 MG ORAL TABLET 1 tab nightly MELATONIN 79618853838 Active Gabrielle Marquez MA Active TAMSULOSIN HCL 0.4 MG ORAL CAPSULE give 2 capsules PO each evening TAMSULOSIN HCL 84370801871 No Longer Active Gabrielle Marquez MA Active VITAMIN D 2000 UNIT ORAL CAPSULE Take one by mouth daily CHOLECALCIFEROL 97557755147 No Longer Active Gabrielle Marquez MA Active LATUDA 40 MG ORAL TABLET 1.5 tab by mouth in the afternoon LURASIDONE HCL 31139951564 Active Gabrielle Marquez MA Active LEVEMIR 100 UNIT/ML SUBCUTANEOUS SOLUTION 10 u at bedtime INSULIN DETEMIR 90689570352 Active Gabrielle Marquez MA Active TAMSULOSIN HCL 0.4 MG ORAL CAPSULE 2 every night for urine flow TAMSULOSIN HCL 19367830661 Active Gabrielle Marquez MA Active DIVALPROEX SODIUM 125 MG ORAL TABLET DELAYED RELEASE 1 tab each morning 02/17 DIVALPROEX SODIUM 77114656002 Active Gabrielle Marquez MA Active D 1000 TABLET 2 tab by mouth BID CHOLECALCIFEROL TABS 08794325947 Active Gabrielle Marquez MA Active ALIGN 4 MG ORAL CAPSULE 1 tab at hs PROBIOTIC PRODUCT 01130660393 Active Gabrielle Marquez MA Active CLONAZEPAM 1 MG ORAL TABLET 1 pill by mouth two times daily CLONAZEPAM 92998561433 Active Gabrielle Marquez MA Active OCEAN NASAL SPRAY SOLUTION 2 sprays in both nostrils every 8 hours as needed for dry mucous membranes SALINE SOLN 02061805670 Active Mason Loredo MD Active BETHANECHOL CHLORIDE 25 MG ORAL TABLET Take 1 tablet mouth four times a day BETHANECHOL CHLORIDE 51382386246 Active Mason Loredo MD Active [facility] LUBRICANT EYE DROPS 0.4-0.3 % OPHTHALMIC SOLUTION POLYETHYL GLYCOL-PROPYL GLYCOL 66460745199 No Longer Active Mason Loredo MD Active TYLENOL 8 HOUR 650 MG ORAL TABLET EXTENDED RELEASE 1 tab QID prn ACETAMINOPHEN 96900851327 No Longer Active Mason Loredo MD Active TOPAMAX 25 MG ORAL TABLET 1 tab BID PRN TOPIRAMATE 51176927875 Active Mason Loredo MD Active TIMOPTIC OCUDOSE 0.5 % OPHTHALMIC SOLUTION instill one drop into both eyes q12H TIMOLOL MALEATE 23161894072 Active Mason Loredo MD Active TRAZODONE HCL 100 MG ORAL TABLET 1 every night to prevent headaches TRAZODONE HCL 04120451843 No Longer Active Mason Loredo MD Active TRAVATAN Z 0.004 % OPHTHALMIC SOLUTION 1 drop each eye daily 2017 TRAVOPROST 33482434994 No Longer Active Mason Loredo MD Active LATUDA 60 MG ORAL TABLET 1 tab daily LURASIDONE HCL 60133721636 No Longer Active Mason Loredo MD Active MORPHINE SULFATE ER 30 MG ORAL TABLET EXTENDED RELEASE Take one capsule BID MORPHINE SULFATE 56611738208 No Longer Active Mason Loredo MD Active TRUE METRIX BLOOD GLUCOSE TEST IN VITRO STRIP Check blood sugars 3x/day. 2015 GLUCOSE BLOOD 89266789965 No Longer Active Mason Loredo MD Active TRUEPLUS LANCETS 30G 3x a day LANCETS 03132000535 No Longer Active Mason Loredo MD Active MYLANTA GAS RELIEF MAXIMUM STR 125 MG ORAL CAPSULE 30cc every 4 hours prn SIMETHICONE 52364295751 No Longer Active Mason Loredo MD Active IMODIUM A-D 2 MG ORAL TABLET 1 tab QID as needed LOPERAMIDE HCL 28811426787 No Longer Active Mason Loredo MD Active FLONASE ALLERGY RELIEF 50 MCG/ACT NASAL SUSPENSION One spray each nostril BID x 1 week then daily FLUTICASONE PROPIONATE 93763428885 No Longer Active Mason Loredo MD Active FLUVOXAMINE MALEATE 100 MG ORAL TABLET take one tab every AM et HS, and take 1 /2 tab at noon FLUVOXAMINE MALEATE 50431033273 No Longer Active Mason Loredo MD Active BD PEN NEEDLE MINI U/F 31G X 5 MM 4 a day INSULIN PEN NEEDLE 68236578279 No Longer Active Mason Loredo MD Active AMITIZA 24 MCG ORAL CAPSULE Take one capsule BID for constipation LUBIPROSTONE 24374302177 No Longer Active Mason Loredo MD Active TRUEPLUS LANCETS 30G 3 a day LANCETS 61176155363 No Longer Active Mason Loredo MD Active CORICIDIN HBP CONGESTION/COUGH 10-200 MG ORAL CAPSULE Take as directed on box as needed for cold/flu symptoms DEXTROMETHORPHAN- GUAIFENESIN 43477916386 No Longer Active Mason Loredo MD Active OMEGA-3 300 MG ORAL CAPSULE 4 caps by mouth daily OMEGA-3 FATTY ACIDS 34338944723 No Longer Active Mason Loredo MD Active HUMALOG KWIKPEN 100 UNIT/ML SUBCUTANEOUS SOLUTION PEN-INJECTOR sliding scale if needed INSULIN LISPRO (HUMAN) 91610740003 No Longer Active Mason Loredo MD Active TRUETEST TEST IN VITRO STRIP check blood sugars 3x/day GLUCOSE BLOOD 00357482105 No Longer Active Mason Loredo MD Active ALFUZOSIN HCL ER 10 MG ORAL TABLET EXTENDED RELEASE 24 HOUR 1 tablet daily ALFUZOSIN HCL 35220436097 No Longer Active Mason Loredo MD Active BD INSULIN SYRINGE 28G X 1/2" 1 ML 1 four times per day INSULIN SYRINGE-NEEDLE U-100 51518733815 No Longer Active Mason Loredo MD Active LEVEMIR FLEXTOUCH 100 UNIT/ML SUBCUTANEOUS SOLUTION PEN-INJECTOR 60 units SQ each evening, for diabetes INSULIN DETEMIR 49485866900 No Longer Active Mason Loredo MD Active LACTULOSE 20 GM/30ML ORAL SOLUTION give 30 Ml PO BID PRN LACTULOSE 39439063992 Active Mason Loredo MD Active COLACE 100 MG ORAL CAPSULE 1 tab BID PRN DOCUSATE SODIUM 03693777008 Active Mason Loredo MD Active LATANOPROST 0.005 % OPHTHALMIC SOLUTION instill 1 drop in both eyes at bed time LATANOPROST 44634581510 Active Mason Loredo MD Active MIRALAX ORAL POWDER 17g by mouth q12h, for constipation POLYETHYLENE GLYCOL 3350 41206382618 Active Mason Loredo MD Active IBUPROFEN 400 MG ORAL TABLET 1 tab Q6H PRN IBUPROFEN 21990167644 Active Mason Loredo MD Active FLUVOXAMINE MALEATE 50 MG ORAL TABLET 1 tab by mouth daily 04/01 FLUVOXAMINE MALEATE 49998737031 No Longer Active Mima Yoeloinaum PUMP TECHNICIAN Active TRUE METRIX METER w/Device KIT Check blood sugars 3x/day BLOOD GLUCOSE MONITORING SUPPL 13660517334 Active Maljohn Ziglari PASTER HAT LINING Active LATUDA 60 MG ORAL TABLET Take one by mouth daily LURASIDONE HCL 42555719902 No Longer Active Mima Erazo APRN Active [facility] MILK OF MAGNESIA 400 MG/5ML ORAL SUSPENSION 30ml by mouth bid prn MAGNESIUM HYDROXIDE 33953058243 Active Mason Loredo MD Active TRAVATAN Z 0.004 % OPHTHALMIC SOLUTION 1 gtt each eye daily TRAVOPROST 68348442352 No Longer Active Mason Loredo MD Active LISINOPRIL 20 MG ORAL TABLET 1 BID LISINOPRIL 68971048535 No Longer Active Mason Loredo MD Active ZOLPIDEM TARTRATE 10 MG ORAL TABLET take at bedtime ZOLPIDEM TARTRATE 26546937206 No Longer Active Mason Loredo MD Active HYDROCODONE-ACETAMINOPHEN 5-325 MG ORAL TABLET 2 tabs by mouth three times daily for pain HYDROCODONE-ACETAMINOPHEN 50648617446 No Longer Active Mason Loredo MD Active ZOFRAN 4 MG ORAL TABLET 1 po q4hr PRN Nausea ONDANSETRON HCL 40498101718 No Longer Active Mason Loredo MD Active LOMOTIL 2.5-0.025 MG ORAL TABLET take 1-2 tabs PO after each stool, no more than 8 in 24 hours DIPHENOXYLATE-ATROPINE 21360578814 No Longer Active Mason Loredo MD Active COLACE 100 MG ORAL CAPSULE 1 pill by mouth twice daily, for constipation 2014 DOCUSATE SODIUM 35382910399 No Longer Active Mima Erazo APRN Active TOLTERODINE TARTRATE 2 MG ORAL TABLET 1 pill twice daily, for bladder TOLTERODINE TARTRATE 66503312782 No Longer Active Vanessa Hickey MD Active AMITIZA 24 MCG ORAL CAPSULE Take one capsule BID for constipation. LUBIPROSTONE 98893527730 No Longer Active Vanessa Hickey MD Active METOPROLOL SUCCINATE ER 100 MG ORAL TABLET EXTENDED RELEASE 24 HOUR 1 by mouth daily for blood pressure METOPROLOL SUCCINATE 84830961087 No Longer Active Grace Azam RMA Active METFORMIN HCL ER 500 MG ORAL TABLET EXTENDED RELEASE 24 HOUR Take three tablets by mouth everyday METFORMIN HCL 06123641814 No Longer Active Grace Aazm RMA Active LOVAZA 1 GM ORAL CAPSULE 4 daily (for triglycerides) [id number] ETHYL ESTERS 69437079217 No Longer Active Grace Azam RMA Active TRAZODONE HCL 100 MG ORAL TABLET 1 tab by mouth for sleep TRAZODONE HCL 47855134364 No Longer Active Grace Azam RMA Active NOVOFINE 32G X 6 MM use one four times per day INSULIN PEN NEEDLE 63827771114 No Longer Active Grace Azam RMA Active BACTROBAN 2 % EXTERNAL CREAM Apply to affected area BID for up to 10 days MUPIROCIN CALCIUM 12163153653 No Longer Active Grace Azam RMA Active KEFLEX 500 MG ORAL CAPSULE 1 po BID x 7 days CEPHALEXIN 29126712047 No Longer Active Cherelle vAila APRN Active FLUVOXAMINE MALEATE 100 MG ORAL TABLET Take one (1) tablet by mouth am, 1/2 at noon FLUVOXAMINE MALEATE 65033268746 No Longer Active Mima Erazo APRN Active FLUVOXAMINE MALEATE 100 MG ORAL TABLET Take 1/2 tab at noon 03/04 FLUVOXAMINE MALEATE 06205869525 No Longer Active Cherelle Avila ALBAN Active ACCU-CHEK ROSA DEVICE Use device to check blood sugars BLOOD GLUCOSE MONITORING SUPPL 29691783061 No Longer Active Marvel MARROQUIN Active ACCU-CHEK ROSA IN VITRO STRIP use strips with device to check blood sugars 3 times daily GLUCOSE BLOOD 62648568357 No Longer Active Mallashondaeh 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 PASTER HAT LINING Active VERAPAMIL HCL ER 180 MG ORAL TABLET EXTENDED RELEASE 1 pill by mouth twice daily, for migraine prevention VERAPAMIL HCL 99480360987 Active Mima Aguilareloinajerrell ALBAN Active CYCLOBENZAPRINE HCL 10 MG ORAL TABLET 1 tablet by mouth three times daily, scheduled CYCLOBENZAPRINE HCL 73228290250 No Longer Active Alina Castaneda MD PhD Active HUMALOG 100 UNIT/ML SUBCUTANEOUS SOLUTION Take 20 units with breakfast, 10u with lunch and suppetr. INSULIN LISPRO (HUMAN) 33524392032 No Longer Active Alina Castaneda MD PhD Active TRUETEST TEST IN VITRO STRIP check sugars 4x/day GLUCOSE BLOOD 10687046890 No Longer Active Alina Castaneda MD PhD Active MORPHINE SULFATE 30 MG ORAL TABLET 1 pill by mouth twice daily, for pain 2013 MORPHINE SULFATE 15850676445 No Longer Active Mason Loredo MD Active ACYCLOVIR 400 MG ORAL TABLET 1 pill three times daily x 5 days, for cold sore outbreak ACYCLOVIR 56745672243 No Longer Active Alina Castaneda MD PhD Active PENICILLIN V POTASSIUM 500 MG ORAL TABLET 1 pill by mouth three times daily PENICILLIN V POTASSIUM 25577460988 No Longer Active Alina Castaneda MD PhD Active UROXATRAL 10 MG ORAL TABLET EXTENDED RELEASE 24 HOUR Take 1 tablet by mouth daily ALFUZOSIN HCL 58763274714 No Longer Active Alina Castaneda MD PhD Active THIOTHIXENE 5 MG ORAL CAPSULE by mouth twice a day THIOTHIXENE 38358802451 No Longer Active Alina Castaneda MD PhD Active ZYPREXA 7.5 MG ORAL TABLET 1 at HS OLANZAPINE 43548877030 No Longer Active Alina Castaneda MD PhD Active DETROL LA 4 MG ORAL CAPSULE EXTENDED RELEASE 24 HOUR Take 1 tablet by mouth daily TOLTERODINE TARTRATE 24971584115 No Longer Active Alina Castaneda MD PhD Active TERESE CONTOUR TEST IN VITRO STRIP monitor blood sugars 3x/day GLUCOSE BLOOD 98559171762 No Longer Active Alina Castaneda MD PhD Active EQL TRUETEST TEST IN VITRO STRIP Test blood sugar TID GLUCOSE BLOOD 14898666046 No Longer Active Alina Castaneda MD PhD Active FLUTICASONE PROPIONATE 50 MCG/ACT NASAL SUSPENSION 2 sprays each nostril qDay x 30 days FLUTICASONE PROPIONATE 22813179001 No Longer Active Alina Castaneda MD PhD Active IBUPROFEN 200 MG ORAL TABLET 1 Q 6 hr. PRN IBUPROFEN 48505510600 No Longer Active Alina Castaneda MD PhD Active NIACIN ER 500 MG ORAL TABLET EXTENDED RELEASE 4 qHS (for triglycerides) 01/13 NIACIN 27341492373 No Longer Active Alina Castaneda MD PhD Active SAPHRIS 5 MG SUBLINGUAL TABLET SUBLINGUAL by mouth twice a day ASENAPINE MALEATE 56927649917 No Longer Active Marvel MARROQUIN Active ACETAMINOPHEN 500 MG ORAL TABLET 2 Q 6 hr. PRN ACETAMINOPHEN 07521793712 No Longer Active Mallashondaeh Ziglari PASTER HAT LINING Active ORPHENADRINE CITRATE ER 100 MG ORAL TABLET EXTENDED RELEASE 12 HOUR 1 every 12 hr. as needed ORPHENADRINE CITRATE 93231470412 No Longer Active Alina Castaneda MD PhD Active NIACIN ER 500 MG ORAL TABLET EXTENDED RELEASE 2 qHS NIACIN 73460612981 No Longer Active Alina Castaneda MD PhD Active AMOXICILLIN 500 MG ORAL CAPSULE 2 po BID x 10 days AMOXICILLIN 81085973503 No Longer Active Alina Castaneda MD PhD Active HYDROCODONE-ACETAMINOPHEN 7.5-325 MG ORAL TABLET 1 four times a day as needed for pain HYDROCODONE-ACETAMINOPHEN 84410186726 No Longer Active Alina Castaneda MD PhD Active DOXEPIN HCL 10 MG ORAL CAPSULE Take 1 tablet by mouth daily DOXEPIN HCL 88759607681 No Longer Active Salina Han [facility] Active NAVANE 10 MG CAPS 1/2 tablet twice a day THIOTHIXENE No Longer Active Salina Han [facility] Active CYCLOBENZAPRINE HCL 10 MG ORAL TABLET 1/2 tablet by mouth every 8 hours as needed for muscle spasms CYCLOBENZAPRINE HCL 87739241351 No Longer Active Alina Castaneda MD PhD Active BACTROBAN 2 % EXTERNAL CREAM apply to ear and nose twice daily MUPIROCIN CALCIUM 18480043072 No Longer Active Alina Castaneda MD PhD Active HYDROCODONE-ACETAMINOPHEN 5-325 MG ORAL TABLET take one tablet by mouth every four hours as needed for pain HYDROCODONE-ACETAMINOPHEN 04671513603 No Longer Active Alina Castaneda MD PhD Active ZYPREXA 5 MG ORAL TABLET take one tablet by mouth every evening OLANZAPINE 57979641332 No Longer Active Alina Castaneda MD PhD Active ALBUTEROL SULFATE (2.5 MG/3ML) 0.083% INHALATION NEBULIZATION SOLUTION one vial per nebulizer TID and PRN cough/soa ALBUTEROL SULFATE 01186875312 No Longer Active Alina Castaneda MD PhD Active GUAIFENESIN ER 600 MG ORAL TABLET EXTENDED RELEASE 12 HOUR 1 tablet by mouth twice daily if needed for cough GUAIFENESIN 43538656207 No Longer Active Marvel MARROQUIN Active AZITHROMYCIN 500 MG INTRAVENOUS SOLUTION RECONSTITUTED 1 po q day AZITHROMYCIN 47004357415 No Longer Active Alina Castaneda MD PhD Active PROMETHAZINE-CODEINE 6.25-10 MG/5ML ORAL SYRUP 1 tsp po q 6 hours prn cough PROMETHAZINE-CODEINE 77040135018 No Longer Active Alina Castaneda MD PhD Active CEFDINIR 300 MG ORAL CAPSULE by mouth twice a day CEFDINIR 57526972992 No Longer Active Alina Castaneda MD PhD Active METFORMIN HCL ER 500 MG ORAL TABLET EXTENDED RELEASE 24 HOUR Take 3 tablets by mouth everyday METFORMIN HCL 90104168509 No Longer Active Alina Castaneda MD PhD Active LEVEMIR 100 UNIT/ML SUBCUTANEOUS SOLUTION 90 units SQ qHS INSULIN DETEMIR 74639655421 No Longer Active Marvel MARROQIUN Active TOPROL XL 100 MG ORAL TABLET EXTENDED RELEASE 24 HOUR 1 @ HS METOPROLOL SUCCINATE 74550249490 No Longer Active Marvel MARROQUIN Active ALLOPURINOL 300 MG ORAL TABLET Take one by mouth daily ALLOPURINOL 87222306567 Active Mima Erazo PUMP TECHNICIAN Active ZYPREXA 10 MG ORAL TABLET Take one by mouth daily OLANZAPINE 24515603296 No Longer Active Alina Castaneda MD PhD Active NOVOLOG 100 UNIT/ML SUBCUTANEOUS SOLUTION 40 units with every meal INSULIN ASPART 15339126276 No Longer Active Alina Castaneda MD PhD Active VERAPAMIL HCL ER 120 MG ORAL TABLET EXTENDED RELEASE 1 qPM 09/08 VERAPAMIL HCL 69660866107 No Longer Active Salina ROJAS Active ZYPREXA 15 MG ORAL TABLET Take 1 tablet by mouth daily OLANZAPINE 56174099320 No Longer Active Marvel MARROQUIN Active ALBUTEROL SULFATE (2.5 MG/3ML) 0.083% INHALATION NEBULIZATION SOLUTION 1 neb tid and prn cough ALBUTEROL SULFATE 52802026790 No Longer Active Alina Castaneda MD PhD Active LANTUS 100 UNIT/ML SUBCUTANEOUS SOLUTION 60 units sq q hs INSULIN GLARGINE 77546649557 No Longer Active CRYSTAL Suarez Active ALBUTEROL SULFATE (2.5 MG/3ML) 0.083% INHALATION NEBULIZATION SOLUTION 1 neb tid and prn cough ALBUTEROL SULFATE (2.5 MG/3ML) 0.083% INHALATION NEBULIZATION SOLUTION 242135 ALBUTEROL SULFATE Inactive ZYPREXA 15 MG ORAL TABLET Take 1 tablet by mouth daily ZYPREXA 15 MG ORAL TABLET 578473 OLANZAPINE Inactive VERAPAMIL HCL ER 120 MG ORAL TABLET EXTENDED RELEASE 1 qPM 09/08 VERAPAMIL HCL ER 120 MG ORAL TABLET EXTENDED RELEASE VERAPAMIL HCL Inactive ZYPREXA 10 MG ORAL TABLET Take one by mouth daily ZYPREXA 10 MG ORAL TABLET 336968 OLANZAPINE Inactive TOPROL XL 100 MG ORAL TABLET EXTENDED RELEASE 24 HOUR 1 @ HS TOPROL XL 100 MG ORAL TABLET EXTENDED RELEASE 24 HOUR METOPROLOL SUCCINATE Inactive LEVEMIR 100 UNIT/ML SUBCUTANEOUS SOLUTION 90 units SQ qHS LEVEMIR 100 UNIT/ML SUBCUTANEOUS SOLUTION INSULIN DETEMIR Inactive PROMETHAZINE-CODEINE 6.25-10 MG/5ML ORAL SYRUP 1 tsp po q 6 hours prn cough PROMETHAZINE-CODEINE 6.25-10 MG/5ML ORAL SYRUP 253105 PROMETHAZINE-CODEINE Inactive GUAIFENESIN ER 600 MG ORAL TABLET EXTENDED RELEASE 12 HOUR 1 tablet by mouth twice daily if needed for cough GUAIFENESIN ER 600 MG ORAL TABLET EXTENDED RELEASE 12 HOUR GUAIFENESIN Inactive ALBUTEROL SULFATE (2.5 MG/3ML) 0.083% INHALATION NEBULIZATION SOLUTION one vial per nebulizer TID and PRN cough/soa ALBUTEROL SULFATE (2.5 MG/3ML) 0.083% INHALATION NEBULIZATION SOLUTION 405982 ALBUTEROL SULFATE Inactive ZYPREXA 5 MG ORAL TABLET take one tablet by mouth every evening ZYPREXA 5 MG ORAL TABLET 697166 OLANZAPINE Inactive HYDROCODONE-ACETAMINOPHEN 5-325 MG ORAL TABLET take one tablet by mouth every four hours as needed for pain HYDROCODONE-ACETAMINOPHEN 5-325 MG ORAL TABLET 132020 HYDROCODONE-ACETAMINOPHEN Inactive BACTROBAN 2 % EXTERNAL CREAM apply to ear and nose twice daily BACTROBAN 2 % EXTERNAL CREAM 238199 MUPIROCIN CALCIUM Inactive CYCLOBENZAPRINE HCL 10 MG ORAL TABLET 1/2 tablet by mouth every 8 hours as needed for muscle spasms CYCLOBENZAPRINE HCL 10 MG ORAL TABLET 281082 CYCLOBENZAPRINE HCL Inactive NAVANE 10 MG CAPS 1/2 tablet twice a day NAVANE 10 MG CAPS THIOTHIXENE Inactive DOXEPIN HCL 10 MG ORAL CAPSULE Take 1 tablet by mouth daily DOXEPIN HCL 10 MG ORAL CAPSULE 0491817 DOXEPIN HCL Inactive HYDROCODONE-ACETAMINOPHEN 7.5-325 MG ORAL TABLET 1 four times a day as needed for pain HYDROCODONE-ACETAMINOPHEN 7.5-325 MG ORAL TABLET 528204 HYDROCODONE-ACETAMINOPHEN Inactive NIACIN ER 500 MG ORAL [...] hr. PRN ACETAMINOPHEN 500 MG ORAL TABLET 824926 ACETAMINOPHEN Inactive SAPHRIS 5 MG SUBLINGUAL TABLET SUBLINGUAL by mouth twice a day SAPHRIS 5 MG SUBLINGUAL TABLET SUBLINGUAL ASENAPINE MALEATE Inactive NIACIN ER 500 MG ORAL TABLET EXTENDED RELEASE 4 qHS (for triglycerides) 01/13 NIACIN ER 500 MG ORAL TABLET EXTENDED RELEASE NIACIN Inactive IBUPROFEN 200 MG ORAL TABLET 1 Q 6 hr. PRN IBUPROFEN 200 MG ORAL TABLET 952163 IBUPROFEN Inactive FLUTICASONE PROPIONATE 50 MCG/ACT NASAL SUSPENSION 2 sprays each nostril qDay x 30 days FLUTICASONE PROPIONATE 50 MCG/ACT NASAL SUSPENSION 4592840 FLUTICASONE PROPIONATE Inactive EQL TRUETEST TEST IN [...] at HS ZYPREXA 7.5 MG ORAL TABLET 564323 OLANZAPINE Inactive THIOTHIXENE 5 MG ORAL CAPSULE by mouth twice a day THIOTHIXENE 5 MG ORAL CAPSULE 405157 THIOTHIXENE Inactive UROXATRAL 10 MG ORAL TABLET EXTENDED RELEASE 24 HOUR Take 1 tablet by mouth daily UROXATRAL 10 MG ORAL TABLET EXTENDED RELEASE 24 HOUR ALFUZOSIN HCL Inactive ACYCLOVIR 400 MG ORAL TABLET 1 pill three times daily x 5 days, for cold sore outbreak ACYCLOVIR 400 MG ORAL TABLET 064492 ACYCLOVIR Inactive TRUETEST TEST IN VITRO STRIP check sugars 4x/day TRUETEST TEST IN VITRO STRIP GLUCOSE BLOOD Inactive HUMALOG 100 UNIT/ML SUBCUTANEOUS SOLUTION Take 20 units with breakfast, 10u with lunch and suppetr. HUMALOG 100 UNIT/ML SUBCUTANEOUS SOLUTION INSULIN LISPRO (HUMAN) Inactive CYCLOBENZAPRINE HCL 10 MG ORAL TABLET 1 tablet by mouth three times daily, scheduled CYCLOBENZAPRINE HCL 10 MG ORAL TABLET 134757 CYCLOBENZAPRINE HCL Inactive ACCU-CHEK ROSA IN VITRO STRIP use strips with device to check blood sugars 3 times daily ACCU-CHEK ROSA IN VITRO STRIP GLUCOSE BLOOD Inactive ACCU-CHEK ROSA DEVICE Use device to check blood sugars ACCU-CHEK ROSA DEVICE BLOOD GLUCOSE MONITORING SUPPL Inactive FLUVOXAMINE MALEATE 100 MG ORAL TABLET Take 1/2 tab at noon 03/04 FLUVOXAMINE MALEATE 100 MG ORAL TABLET 042307 FLUVOXAMINE MALEATE Inactive FLUVOXAMINE MALEATE 100 MG ORAL TABLET Take one (1) tablet by mouth am, 1/2 at noon FLUVOXAMINE MALEATE 100 MG ORAL TABLET 012161 FLUVOXAMINE MALEATE Inactive BACTROBAN 2 % EXTERNAL CREAM Apply to affected area BID for up to 10 days BACTROBAN 2 % EXTERNAL CREAM 703560 MUPIROCIN CALCIUM Inactive NOVOFINE 32G X 6 MM use one four times per day NOVOFINE 32G X 6 MM INSULIN PEN NEEDLE Inactive TRAZODONE HCL 100 MG ORAL TABLET 1 tab by mouth for sleep TRAZODONE HCL 100 MG ORAL TABLET 021135 TRAZODONE HCL Inactive LOVAZA 1 GM ORAL CAPSULE 4 daily (for triglycerides) LOVAZA 1 GM ORAL CAPSULE 665141 [id number] ETHYL ESTERS Inactive METFORMIN HCL ER 500 [...] bladder TOLTERODINE TARTRATE 2 MG ORAL TABLET 122869 TOLTERODINE TARTRATE Inactive COLACE 100 MG ORAL CAPSULE 1 pill by mouth twice daily, for constipation 2014 COLACE 100 MG ORAL CAPSULE 5560263 DOCUSATE SODIUM Inactive LOMOTIL 2.5-0.025 MG ORAL TABLET take 1-2 tabs PO after each stool, no more than 8 in 24 hours LOMOTIL 2.5-0.025 MG ORAL TABLET 3918823 DIPHENOXYLATE-ATROPINE Inactive ZOFRAN 4 MG ORAL TABLET 1 po q4hr PRN Nausea ZOFRAN 4 MG ORAL TABLET 904650 ONDANSETRON HCL Inactive HYDROCODONE-ACETAMINOPHEN 5-325 MG ORAL TABLET 2 tabs by mouth three times daily for pain HYDROCODONE-ACETAMINOPHEN 5-325 MG ORAL TABLET 112060 HYDROCODONE-ACETAMINOPHEN Inactive ZOLPIDEM TARTRATE 10 MG ORAL TABLET take at bedtime ZOLPIDEM TARTRATE 10 MG ORAL TABLET 694581 ZOLPIDEM TARTRATE Inactive LISINOPRIL 20 MG ORAL TABLET 1 BID LISINOPRIL 20 MG ORAL TABLET 945792 LISINOPRIL Inactive TRAVATAN Z 0.004 % OPHTHALMIC SOLUTION 1 gtt each eye daily TRAVATAN Z 0.004 % OPHTHALMIC SOLUTION TRAVOPROST Inactive LATUDA 60 MG ORAL TABLET Take one by mouth daily LATUDA 60 MG ORAL TABLET LURASIDONE HCL Inactive FLUVOXAMINE MALEATE 50 MG ORAL TABLET 1 tab by mouth daily 04/01 FLUVOXAMINE MALEATE 50 MG ORAL TABLET 480866 FLUVOXAMINE MALEATE Inactive LEVEMIR FLEXTOUCH 100 UNIT/ML [...] 30G 3 a day TRUEPLUS LANCETS 30G [id number] LANCETS Inactive AMITIZA 24 MCG ORAL CAPSULE [...] noon FLUVOXAMINE MALEATE 100 MG ORAL TABLET 152598 FLUVOXAMINE MALEATE Inactive FLONASE ALLERGY RELIEF 50 MCG/ACT NASAL SUSPENSION One spray each nostril BID x 1 week then daily FLONASE ALLERGY RELIEF 50 MCG/ACT NASAL SUSPENSION 1003269 FLUTICASONE PROPIONATE Inactive IMODIUM A-D 2 MG ORAL TABLET 1 tab QID as needed IMODIUM A-D 2 MG ORAL TABLET 043238 LOPERAMIDE HCL Inactive MYLANTA GAS RELIEF MAXIMUM STR 125 MG ORAL CAPSULE 30cc every 4 hours prn MYLANTA GAS RELIEF MAXIMUM STR 125 MG ORAL CAPSULE SIMETHICONE Inactive TRUEPLUS LANCETS 30G 3x a day TRUEPLUS LANCETS 30G [id number] LANCETS Inactive TRUE METRIX BLOOD GLUCOSE TEST [...] headaches TRAZODONE HCL 100 MG ORAL TABLET 378309 TRAZODONE HCL Inactive TYLENOL 8 HOUR 650 [...] evening TAMSULOSIN HCL 0.4 MG ORAL CAPSULE 133499 TAMSULOSIN HCL Inactive [facility] MELATONIN 3 MG ORAL TABLET give 1 tab by mouth at HS [facility] MELATONIN 3 MG ORAL TABLET 671185 MELATONIN Inactive SEROQUEL 100 MG ORAL TABLET 1 tab daily SEROQUEL 100 MG ORAL TABLET 707015 QUETIAPINE FUMARATE Inactive AMARYL 2 MG ORAL TABLET give 2.5 tabs PO daily AMARYL 2 MG ORAL TABLET 870616 GLIMEPIRIDE Inactive SEROQUEL 25 MG ORAL TABLET Take two tabs by mouth in the morning, take 4 tablets at night SEROQUEL 25 MG ORAL TABLET 143809 QUETIAPINE FUMARATE Inactive CEFDINIR 300 MG ORAL CAPSULE by mouth twice a day CEFDINIR 300 MG ORAL CAPSULE 632044 CEFDINIR Inactive AZITHROMYCIN 500 MG INTRAVENOUS SOLUTION RECONSTITUTED 1 po q day AZITHROMYCIN 500 MG INTRAVENOUS SOLUTION RECONSTITUTED [id number] AZITHROMYCIN Inactive AMOXICILLIN 500 MG ORAL CAPSULE 2 po BID x 10 days AMOXICILLIN 500 MG ORAL CAPSULE 947073 AMOXICILLIN Inactive PENICILLIN V POTASSIUM 500 MG ORAL TABLET 1 pill by mouth three times daily PENICILLIN V POTASSIUM 500 MG ORAL TABLET 145932 PENICILLIN V POTASSIUM Inactive KEFLEX 500 MG ORAL CAPSULE 1 po BID x 7 days KEFLEX 500 MG ORAL CAPSULE 723283 CEPHALEXIN Inactive Immunizations Vaccine Administration Date Value [...] Fluvirin, Fluarix, Agriflu(>=18 yo)) Fluzone (>3 yrs.) [[id number]] Influenza, seasonal, injectable pneumococcal immunization administered Pneumovax [...] ... - Chemistry sodium, serum 135 mmol/L 993-436 7134/08/22 carbon dioxide, venous blood 28.4 mmol/L 21.0-32.0 [...] mg/g {creat} 0-29 cholesterol, serum 263 mg/dL 137-030 8065/08/22 triglyceride, serum, fasting 1312 mg/dL 30-200 HDL [...] 80 mg/L 0-19 Office Visit: TCM from shelter - Lab PSA (prostate specific antigent), recommendation and action PSA ordered Encounters Code Encounter Date Provider Facility CPT-49876 [id number] Vst-Est Level III 11:00:25 [facility] Level 3 Est. Patient 09:12:14 CASTABLES WORKER [facility] Est. Patient 16:52:51 CDT Vanessa Hickey MD [facility] CPT-32008 Level 3 Est. Patient 17:40:16 [facility] Level 3 Est. Patient 14:34:52 CDT Vanessa Hickey MD [facility]-67009 Level 3 Est. Patient 16:27:51 CDT [facility] C[facility]-50677 Level 3 Est. Patient 14:39:00 CASTABLES WORKER Vanessa Hickey MD [facility] CPT-67856 Level 2 Est. Patient 18:43:34 CDT Mima [facility] CPT-60017 Level 3 Est. Patient 16:22:09 CDT Cherelle Avila [facility] CPT-05223 Level 4 Est. Patient 17:55:14 CDT Mima [facility] CPT-21034 Level 2 Est. Patient 17:13:21 CDT Alina Castaneda MD PhD [facility] CPT-07303 Level 3 Est. Patient 14:46:15 CDT Vanessa Hickey MD [facility]-97994 Level 3 Est. Patient 09:34:56 CDT Alina Castaneda MD [facility]-31595 Level 3 Est. Patient 21:40:19 CDT Mima Erazo APRN [facility]-11360 Level 3 Est. Patient 09:26:40 CDT Marvel Charles [facility]-99920 Level 3 Est. Patient 12:36:43 CDT Vanessa Hickey MD [facility]-40707 Level 3 Est. Patient 12:57:49 CDT Vanessa Hickey MD [facility]-22465 Level 3 Est. Patient 00:28:25 CDT Alina Castaneda MD [facility]74851 Level 2 Est. Patient 12:52:14 CDT Alina Castaneda MD [facility]-96327 Level 3 Est. Patient 11:51:18 CASTABLES WORKER Alina Castaneda MD [facility]-95967 Level 3 Est. Patient 10:09:22 CASTABLES WORKER Alina Castaneda MD [facility]27253 Level 3 Est. Patient 14:36:26 CASTABLES WORKER Marvel Charles [facility]-05771 Level 3 Est. Patient 13:34:47 CASTABLES WORKER Alina Castaneda MD [facility]-03004 Level 3 Est. Patient 19:52:08 CASTABLES WORKER Alina Castaneda MD [facility]31925 Level 3 Est. Patient 10:01:51 CASTABLES WORKER Marvel Charles [facility]-18545 Level 3 Est. Patient 21:54:06 CDT Vanessa Hickey MD [facility]-77883 Level 3 Est. Patient 08:54:46 CDT Alina Castaneda MD [facility]-02453 Level 3 Est. Patient 09:32:11 CDT Marvel Araceli [facility]-41820 Level 3 Est. Patient 12:02:49 CDT Alina Castaneda MD [facility]-19275 Level 3 Est. Patient 19:17:33 CDT Alina Castaneda MD [facility]-31068 Level 3 Est. Patient 13:19:10 CDT Brookslashondanivia Araceli [facility]-27117 Level 3 Est. Patient 08:20:05 CDT Alina Castaneda MD [facility]-17732 Level 3 Est. Patient 15:17:18 CDT Alina Castaneda MD [facility]-25138 Level 3 Est. Patient 14:25:36 CASTABLES WORKER [facility] Thurstonestela [facility]-77391 Level 3 Est. Patient 10:09:15 CASTABLES WORKER Marvel Thurstonestela [facility] CPT-25226 Level 3 Est. Patient 21:28:43 CDT Alina Castaneda MD [facility]-82102 Level 3 Est. Patient 15:20:11 CDT Brooksjohn Charles [facility]-79031 Level 4 Est. Patient 19:08:12 CDT Alina Castaneda MD [facility]27843 Level 3 Est. Patient 15:06:39 CDT [facility]-69099 Level 4 Est. Patient 17:48:15 CDT Alina Castaneda MD [facility]-33457 Level 3 Est. Patient 14:53:49 CDT Alina Castaneda MD [facility]-19444 Level 3 Est. Patient 09:35:16 CDT Alina Castaneda MD [facility]-49446 Level 3 Est. Patient 12:23:22 CDT Alina Castaneda MD [facility]-82320 Level 3 Est. Patient 16:19:15 CDT Alina Castaneda MD [facility]-26759 Level 3 Est. Patient 21:39:56 CASTABLES WORKER Alina Castaneda MD [facility]00388 Level 4 Est. Patient 14:12:56 CASTABLES WORKER Alina Castaneda MD [facility]-77275 Level 2 Est. Patient 15:34:57 CASTABLES WORKER Alina Castaneda MD [facility]-36055 Level 3 Est. Patient 12:17:04 CASTABLES WORKER Alina Castaneda MD [facility]-15413 Level 3 Est. Patient 09:18:18 CASTABLES WORKER Marvel Charles [facility]-99518 Level 2 Est. Patient 21:50:24 CDT Alina Castaneda MD [facility]-89879 Level 3 Est. Patient 09:17:28 CDT Marvel Charles [facility]-17025 Level 4 Est. Patient 18:54:02 CDT Alina Castaneda MD [facility]-54667 Level 3 Est. Patient 10:47:10 CDT Alina Castaneda MD [facility]-41999 Level 3 Est. Patient 09:22:20 [facility]-12747 Level 3 Est. Patient 16:39:43 CDT [facility] CPT-71270 Level 3 Est. Patient 16:05:16 CDT Alina Castaneda MD [facility] CPT-21142 Level 3 Est. Patient 00:29:15 CDT Alina Castaneda MD [facility] CPT-88042 Level 3 Est. Patient 10:49:22 CASTABLES WORKER [facility] C[facility]-48033 Level 3 Est. Patient 21:30:19 CASTABLES WORKER Alina Castaneda MD [facility] CPT-55750 Level 4 Est. Patient 17:04:11 CASTABLES WORKER [facility] CPT-21192 Level 3 Est. Patient 15:34:11 CASTABLES WORKER [facility] CPT-48921 Level 2 Est. Patient 12:51:58 CASTABLES WORKER Alina Castaneda MD [facility] CPT-28493 Level 3 Est. Patient 13:20:01 CASTABLES WORKER Alina Castaneda MD [facility] CPT-00568 Level 3 Est. Patient 09:23:35 CDT Alina Castaneda MD PhD [facility] Procedures Code Procedure Name Date Entry Date Standard Description CPT-G0439 [facility] Annual Wellness Exam 15:49:52 CASTABLES WORKER CPT-81241 Level 3 Assisted 13:20:19 CDT CPT-TCMM Transitional Care Mgmt-Moderate 12:32:19 CDT CPT-62621 Level 2 Assisted 09:01:11 CDT CPT-98381 HGBA1C - LAB USE ONLY 09:30:27 CASTABLES WORKER CPT-48896 BMP - LAB USE ONLY 09:30:27 CASTABLES WORKER CPT-42279 Venipuncture Draw Fee 09:30:26 CASTABLES WORKER CPT-TCMM Transitional Care Mgmt-Moderate 10:25:31 CDT CPT-93695 Bladder Scan 14:34:53 CDT CPT-24435 Bladder Scan 14:39:01 CASTABLES WORKER CPT-TCMM Transitional Care Mgmt-Moderate 10:30:19 CASTABLES WORKER CPT-98002 Bladder Scan 12:36:44 CDT CPT-38938 Bladder Scan 21:54:06 CDT CPT-G0008 Administration of Influenza Virus Vaccine 13:05:26 CDT CPT-43931 Fluzone Quadrivalent Intramuscular Suspension 0.5 ML 13: 05:26 CDT CPT-34647 Administration single or combination vaccine inc oral 11 :49:51 CDT CPT-44005 Pneumovax 11:49:51 CDT CPT-99721 Ribs unilateral 2V 12:37:22 CASTABLES WORKER CPT-74259 Chest 2V Frontal and Lat 17:15:26 CDT CPT-98349 Abx/Therapy Injection 18:54:02 CDT CPT-J0696 Rocephin 1000 mg (Ceftriaxone) 16:00:32 CDT CPT-53167 Chest 2V Frontal and Lat 15:26:45 CDT CPT-57266 Chest 2V Frontal and Lat 10:23:27 CDT CPT-43672 Venipuncture Draw Fee 10:11:00 CDT CPT-69876 Administration single or combination vaccine inc oral 11 :56:38 CDT CPT-69044 Influenza split virus > age 3 11:56:38 CDT CPT-45368 Venipuncture Draw Fee 08:49:54 CASTABLES WORKER CPT-89101 EKG Trac and Interp 17:54:19 CASTABLES WORKER
[2018-07-02 12:18] LABS: ALANINE AMINOTRANSFERASE 35 U/L (0-55); ALBUMIN 4.2 GM/DL (3.2-4.5); ALKALINE PHOSPHATASE 31 U/L (40-136); BILIRUBIN,TOTAL 0.3 MG/DL (0.1-1.0); BUN/CREATININE RATIO 15; CALCIUM 8.8 MG/DL (8.5-10.1); CARBON DIOXIDE 20 MMOL/L (21-32); CHLORIDE 108 MMOL/L (98-107); CREATININE SERUM 0.82 MG/DL (0.60-1.30); GFR ESTIMATED > 60; GLUCOSE 242 MG/DL (70-105); POTASSIUM 3.8 MMOL/L (3.6-5.0); SODIUM 142 MMOL/L (135-145); TOTAL PROTEIN 6.8 GM/DL (6.4-8.2)
--- OUTSIDE RECORDS SUMMARY | 2018-07-02 12:19 | XMS REPORT | Clinical Summary ---
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 Benign paroxysmal positional vertigo Vertigo, benign paroxysmal position 386.11 Inactive Mima Erazo INSURANCE SALES PROFESSIONAL Benign paroxysmal positional vertigo High-risk sexual behavior [...] URI ICD-465.9 Inactive Alina Castaneda MD PhD WOUND, OPEN, NOSE ICD-873.20 Inactive Alina Castaneda MD PhD ANEMIA ICD-285.9 Inactive Shavonne Feliciano PA-C 2017 FATIGUE ICD-780.79 Inactive Alina Castaneda MD PhD CHEST PAIN ICD-786.50 Inactive Alina Castaneda MD PhD DIABETES MELLITUS, [...] SIDED ICD-786.50 Inactive Alina Castaneda MD PhD FH STROKE ICD-V17.1 Inactive Marvel MARROQUIN HEADACHE ICD-784.0 Inactive Shavonne Feliciano PA-C SKIN LESION ICD-709.9 Rroo Castaneda MD PhD DIABETIC HYPOGLYCEMIA, TYPE II ICD-250.80 Inactive Marvel 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 Roro Castaneda MD PhD Recurrent isolated sleep paralysis ICD-327.43 Roro Feliciano PA-C SINUSITIS, ACUTE ICD-461.9 Inactive Alina Castaneda MD PhD Diabetes mellitus, type II, uncontrolled ICD-250.02 Inactive Alina Castaneda MD PhD SPECIAL SCREENING FOR MALIGNANT NEOPLASM OF PROSTATE ICD-V76.44 Inactive Alina Castaneda MD PhD Confusion ICD-298.9 Inactive Alnia Castaneda MD PhD Lower Urinary Tract Symptoms [...] Index 31.0-31.9 Adult Inactive Gabrielle Marquez MA Hypoglycemia ICD-251.2 Inactive Alina Castaneda MD PhD Dizziness ICD-780.4 Inactive Alina Castaneda MD PhD Medication List Medication Instructions Start Date Stop Date Generic Name NDC Status Provider Patient Instruction VERAPAMIL HCL ER 180 MG ORAL TABLET EXTENDED RELEASE 1 tab BID VERAPAMIL HCL 36504373553 Active Shavonne Feliciano PA-C Active SEROQUEL 25 MG ORAL TABLET Take two tabs by mouth in the morning, take 4 tablets at night QUETIAPINE FUMARATE 34105531608 No Longer Active Shavonne Feliciano PA-C Active EFFEXOR XR 150 MG ORAL CAPSULE EXTENDED RELEASE 24 HOUR 1 tab daily VENLAFAXINE HCL 25064335186 Active Shavonne Feliciano PA-C Active QUETIAPINE FUMARATE 25 MG ORAL TABLET 2 tabs BID QUETIAPINE FUMARATE 94029593164 Active Shavonne Feliciano PA-C Active QUETIAPINE FUMARATE 100 MG ORAL TABLET 1 tab PO at HS QUETIAPINE FUMARATE 54456344079 Active Shavonne Feliciano PA-C Active AMARYL 2 MG ORAL TABLET give 2.5 tabs PO daily GLIMEPIRIDE 81053233527 No Longer Active Shavonne Feliciano PA-C Active AMARYL 2 MG ORAL TABLET give 2 tabs PO in the morning GLIMEPIRIDE 39912400566 Active Shaovnne Feliciano PA-C Active FENOFIBRATE 145 MG ORAL TABLET 1 tab PO in the morning FENOFIBRATE 95753412342 Active Shavonne Feliciano PA-C Active SEROQUEL 100 MG ORAL TABLET 1 tab daily QUETIAPINE FUMARATE 09734115128 No Longer Active Shavonne Feliciano PA-C Active [facility] MELATONIN 3 MG ORAL TABLET give 1 tab by mouth at HS MELATONIN 38531917858 No Longer Active Gabrielle Marquez MA Active NOVOLOG FLEXPEN 100 UNIT/ML SUBCUTANEOUS SOLUTION PEN-INJECTOR sliding scale INSULIN ASPART 60951324512 Active Gabrielle Marquez MA Active METFORMIN HCL 1000 MG ORAL TABLET 1 tab by mouth BID METFORMIN HCL 50527472172 Active Gabrielle Marquez MA Active [facility] MELATONIN 3 MG ORAL TABLET 1 tab nightly MELATONIN 04045421092 Active Gabrielle Marquez MA Active TAMSULOSIN HCL 0.4 MG ORAL CAPSULE give 2 capsules PO each evening TAMSULOSIN HCL 92568614599 No Longer Active Gabrielle Marquez MA Active VITAMIN D 2000 UNIT ORAL CAPSULE Take one by mouth daily CHOLECALCIFEROL 53802150660 No Longer Active Gabrielle Marquez MA Active LATUDA 40 MG ORAL TABLET 1.5 tab by mouth in the afternoon LURASIDONE HCL 71045599496 Active Gabrielle Marquez MA Active LEVEMIR 100 UNIT/ML SUBCUTANEOUS SOLUTION 10 u at bedtime INSULIN DETEMIR 37566992492 Active Gabrielle Marquez MA Active TAMSULOSIN HCL 0.4 MG ORAL CAPSULE 2 every night for urine flow TAMSULOSIN HCL 52053564753 Active Gabrielle Marquez MA Active DIVALPROEX SODIUM 125 MG ORAL TABLET DELAYED RELEASE 1 tab each morning 02/17 DIVALPROEX SODIUM 12810983166 Active Gabrielle Marquez MA Active D 1000 TABLET 2 tab by mouth BID CHOLECALCIFEROL TABS 14858359018 Active Gabrielle Marquez MA Active ALIGN 4 MG ORAL CAPSULE 1 tab at hs PROBIOTIC PRODUCT 82770582028 Active Gabrielle Marquez MA Active CLONAZEPAM 1 MG ORAL TABLET 1 pill by mouth two times daily CLONAZEPAM 55541481226 Active Gabrielle Marquez MA Active OCEAN NASAL SPRAY SOLUTION 2 sprays in both nostrils every 8 hours as needed for dry mucous membranes SALINE SOLN 19498623139 Active Mason Loredo MD Active BETHANECHOL CHLORIDE 25 MG ORAL TABLET Take 1 tablet mouth four times a day BETHANECHOL CHLORIDE 69596657901 Active Mason Loredo MD Active [facility] LUBRICANT EYE DROPS 0.4-0.3 % OPHTHALMIC SOLUTION POLYETHYL GLYCOL-PROPYL GLYCOL 83151491515 No Longer Active Mason Loredo MD Active TYLENOL 8 HOUR 650 MG ORAL TABLET EXTENDED RELEASE 1 tab QID prn ACETAMINOPHEN 60925680122 No Longer Active Mason Loredo MD Active TOPAMAX 25 MG ORAL TABLET 1 tab BID PRN TOPIRAMATE 87324294855 Active Mason Loredo MD Active TIMOPTIC OCUDOSE 0.5 % OPHTHALMIC SOLUTION instill one drop into both eyes q12H TIMOLOL MALEATE 99545115717 Active Mason Loredo MD Active TRAZODONE HCL 100 MG ORAL TABLET 1 every night to prevent headaches TRAZODONE HCL 87381162906 No Longer Active Mason Loredo MD Active TRAVATAN Z 0.004 % OPHTHALMIC SOLUTION 1 drop each eye daily 2017 TRAVOPROST 78822038516 No Longer Active Mason Loredo MD Active LATUDA 60 MG ORAL TABLET 1 tab daily LURASIDONE HCL 06161506684 No Longer Active Mason Loredo MD Active MORPHINE SULFATE ER 30 MG ORAL TABLET EXTENDED RELEASE Take one capsule BID MORPHINE SULFATE 70074550975 No Longer Active Mason Loredo MD Active TRUE METRIX BLOOD GLUCOSE TEST IN VITRO STRIP Check blood sugars 3x/day. 2015 GLUCOSE BLOOD 82483143251 No Longer Active Mason Loredo MD Active TRUEPLUS LANCETS 30G 3x a day LANCETS 22562864617 No Longer Active Mason Loredo MD Active MYLANTA GAS RELIEF MAXIMUM STR 125 MG ORAL CAPSULE 30cc every 4 hours prn SIMETHICONE 37805208023 No Longer Active Mason Loredo MD Active IMODIUM A-D 2 MG ORAL TABLET 1 tab QID as needed LOPERAMIDE HCL 13777337692 No Longer Active Mason Loredo MD Active FLONASE ALLERGY RELIEF 50 MCG/ACT NASAL SUSPENSION One spray each nostril BID x 1 week then daily FLUTICASONE PROPIONATE 91895456222 No Longer Active Mason Loredo MD Active FLUVOXAMINE MALEATE 100 MG ORAL TABLET take one tab every AM et HS, and take 1 /2 tab at noon FLUVOXAMINE MALEATE 06664193284 No Longer Active Mason Loredo MD Active BD PEN NEEDLE MINI U/F 31G X 5 MM 4 a day INSULIN PEN NEEDLE 85687956285 No Longer Active Mason Loredo MD Active AMITIZA 24 MCG ORAL CAPSULE Take one capsule BID for constipation LUBIPROSTONE 41206567488 No Longer Active Mason Loredo MD Active TRUEPLUS LANCETS 30G 3 a day LANCETS 08957163040 No Longer Active Mason Loredo MD Active CORICIDIN HBP CONGESTION/COUGH 10-200 MG ORAL CAPSULE Take as directed on box as needed for cold/flu symptoms DEXTROMETHORPHAN- GUAIFENESIN 80382827051 No Longer Active Mason Loredo MD Active OMEGA-3 300 MG ORAL CAPSULE 4 caps by mouth daily OMEGA-3 FATTY ACIDS 83129365830 No Longer Active Mason Loredo MD Active HUMALOG KWIKPEN 100 UNIT/ML SUBCUTANEOUS SOLUTION PEN-INJECTOR sliding scale if needed INSULIN LISPRO (HUMAN) 83108151241 No Longer Active Mason Loredo MD Active TRUETEST TEST IN VITRO STRIP check blood sugars 3x/day GLUCOSE BLOOD 13606436009 No Longer Active Mason Loredo MD Active ALFUZOSIN HCL ER 10 MG ORAL TABLET EXTENDED RELEASE 24 HOUR 1 tablet daily ALFUZOSIN HCL 79216118516 No Longer Active Mason Loredo MD Active BD INSULIN SYRINGE 28G X 1/2" 1 ML 1 four times per day INSULIN SYRINGE-NEEDLE U-100 04113537485 No Longer Active Mason Loredo MD Active LEVEMIR FLEXTOUCH 100 UNIT/ML SUBCUTANEOUS SOLUTION PEN-INJECTOR 60 units SQ each evening, for diabetes INSULIN DETEMIR 86389031015 No Longer Active Mason Loredo MD Active LACTULOSE 20 GM/30ML ORAL SOLUTION give 30 Ml PO BID PRN LACTULOSE 72355879599 Active Mason Loredo MD Active COLACE 100 MG ORAL CAPSULE 1 tab BID PRN DOCUSATE SODIUM 19564281899 Active Mason Loredo MD Active LATANOPROST 0.005 % OPHTHALMIC SOLUTION instill 1 drop in both eyes at bed time LATANOPROST 78252833167 Active Mason Loredo MD Active MIRALAX ORAL POWDER 17g by mouth q12h, for constipation POLYETHYLENE GLYCOL 3350 17106414701 Active Mason Loredo MD Active IBUPROFEN 400 MG ORAL TABLET 1 tab Q6H PRN IBUPROFEN 40343565903 Active Mason Loredo MD Active FLUVOXAMINE MALEATE 50 MG ORAL TABLET 1 tab by mouth daily 04/01 FLUVOXAMINE MALEATE 78677841728 No Longer Active Mima Erazo APRN Active TRUE METRIX METER w/Device KIT Check blood sugars 3x/day BLOOD GLUCOSE MONITORING SUPPL 51875979131 Active Marvel Mackenzieglari BRANCH MANAGER TRAINEE Active LATUDA 60 MG ORAL TABLET Take one by mouth daily LURASIDONE HCL 09219408644 No Longer Active Mima Erazo APRN Active [facility] MILK OF MAGNESIA 400 MG/5ML ORAL SUSPENSION 30ml by mouth bid prn MAGNESIUM HYDROXIDE 54805879557 Active Mason Loredo MD Active TRAVATAN Z 0.004 % OPHTHALMIC SOLUTION 1 gtt each eye daily TRAVOPROST 97469479838 No Longer Active Mason Loredo MD Active LISINOPRIL 20 MG ORAL TABLET 1 BID LISINOPRIL 33938092488 No Longer Active Mason Loredo MD Active ZOLPIDEM TARTRATE 10 MG ORAL TABLET take at bedtime ZOLPIDEM TARTRATE 61205282574 No Longer Active Mason Loredo MD Active HYDROCODONE-ACETAMINOPHEN 5-325 MG ORAL TABLET 2 tabs by mouth three times daily for pain HYDROCODONE-ACETAMINOPHEN 08530205086 No Longer Active Mason Loredo MD Active ZOFRAN 4 MG ORAL TABLET 1 po q4hr PRN Nausea ONDANSETRON HCL 06713866338 No Longer Active Mason Loredo MD Active LOMOTIL 2.5-0.025 MG ORAL TABLET take 1-2 tabs PO after each stool, no more than 8 in 24 hours DIPHENOXYLATE-ATROPINE 61081490572 No Longer Active Mason Loredo MD Active COLACE 100 MG ORAL CAPSULE 1 pill by mouth twice daily, for constipation 2014 DOCUSATE SODIUM 05078352570 No Longer Active Mima Yokum INS[employer]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 LUBIPROSTONE 67195367936 No Longer Active Vanessa Hickey MD Active METOPROLOL SUCCINATE ER 100 MG ORAL TABLET EXTENDED RELEASE 24 HOUR 1 by mouth daily for blood pressure METOPROLOL SUCCINATE 19075936820 No Longer Active Grace Nelsonb RMA Active METFORMIN HCL ER 500 MG ORAL TABLET EXTENDED RELEASE 24 HOUR Take three tablets by mouth everyday METFORMIN HCL 58121110484 No Longer Active Grace Azam RMA Active LOVAZA 1 GM ORAL CAPSULE 4 daily (for triglycerides) [id number]-[id number] ETHYL ESTERS 45386193790 No Longer Active Grace Azam RMA Active TRAZODONE HCL 100 MG ORAL TABLET 1 tab by mouth for sleep TRAZODONE HCL 55507028708 No Longer Active Grace Azam RMA Active NOVOFINE 32G X 6 MM use one four times per day INSULIN PEN NEEDLE 93092890129 No Longer Active Grace Azam RMA Active BACTROBAN 2 % EXTERNAL CREAM Apply to affected area BID for up to 10 days MUPIROCIN CALCIUM 72153084506 No Longer Active Grace Azam RMA Active KEFLEX 500 MG ORAL CAPSULE 1 po BID x 7 days CEPHALEXIN 42575193492 No Longer Active Cherelle Avila INS[employer]ANCE SALES PROFESSIONAL Active FLUVOXAMINE MALEATE 100 MG ORAL TABLET Take one (1) tablet by mouth am, 1/2 at noon FLUVOXAMINE MALEATE 72547307601 No Longer Active Mima Erazo INS[employer]ANCE SALES PROFESSIONAL Active FLUVOXAMINE MALEATE 100 MG ORAL TABLET Take 1/2 tab at noon 03/04 FLUVOXAMINE MALEATE 51916405928 No Longer Active Cherelle Avila INSURANCE SALES PROFESSIONAL Active ACCU-CHEK ROSA DEVICE Use device to check blood sugars BLOOD GLUCOSE MONITORING SUPPL 50622504913 No Longer Active Brooksjohn MARROQUIN Active ACCU-CHEK ROSA IN VITRO STRIP use strips with device to check blood sugars 3 times daily GLUCOSE BLOOD 57289754053 No Longer Active Brooksjohn MARROQUIN Active VERAPAMIL HCL ER 180 MG ORAL TABLET EXTENDED RELEASE 1 pill by mouth twice daily, for migraine prevention VERAPAMIL HCL 80552068072 Active Mima Erazo INSURANCE SALES PROFESSIONAL Active CYCLOBENZAPRINE HCL 10 MG ORAL TABLET 1 tablet by mouth three times daily, scheduled CYCLOBENZAPRINE HCL 78203374233 No Longer Active Alina Castaneda MD PhD Active HUMALOG 100 UNIT/ML SUBCUTANEOUS SOLUTION Take 20 units with breakfast, 10u with lunch and suppetr. INSULIN LISPRO (HUMAN) 80164087947 No Longer Active Alina Castaneda MD PhD Active TRUETEST TEST IN VITRO STRIP check sugars 4x/day GLUCOSE BLOOD 36257483402 No Longer Active Alina Castaneda MD PhD Active MORPHINE SULFATE 30 MG ORAL TABLET 1 pill by mouth twice daily, for pain 2013 MORPHINE SULFATE 85427071509 No Longer Active Mason Loredo MD Active ACYCLOVIR 400 MG ORAL TABLET 1 pill three times daily x 5 days, for cold sore outbreak ACYCLOVIR 19579779210 No Longer Active Alina Castaneda MD PhD Active PENICILLIN V POTASSIUM 500 MG ORAL TABLET 1 pill by mouth three times daily PENICILLIN V POTASSIUM 63903952501 No Longer Active Alina Castaneda MD PhD Active UROXATRAL 10 MG ORAL TABLET EXTENDED RELEASE 24 HOUR Take 1 tablet by mouth daily ALFUZOSIN HCL 55815695934 No Longer Active Alina Castaneda MD PhD Active THIOTHIXENE 5 MG ORAL CAPSULE by mouth twice a day THIOTHIXENE 29745601500 No Longer Active Alina Castaneda MD PhD Active ZYPREXA 7.5 MG ORAL TABLET 1 at HS OLANZAPINE 18330920496 No Longer Active Alina Castaneda MD PhD Active DETROL LA 4 MG ORAL CAPSULE EXTENDED RELEASE 24 HOUR Take 1 tablet by mouth daily TOLTERODINE TARTRATE 15628563378 No Longer Active Alina Castaneda MD PhD Active TERESE CONTOUR TEST IN VITRO STRIP monitor blood sugars 3x/day GLUCOSE BLOOD 30679248392 No Longer Active Alina Castaneda MD PhD Active EQL TRUETEST TEST IN VITRO STRIP Test blood sugar TID GLUCOSE BLOOD 09372628361 No Longer Active Alina Castaneda MD PhD Active FLUTICASONE PROPIONATE 50 MCG/ACT NASAL SUSPENSION 2 sprays each nostril qDay x 30 days FLUTICASONE PROPIONATE 12752734464 No Longer Active Alina Castaneda MD PhD Active IBUPROFEN 200 MG ORAL TABLET 1 Q 6 hr. PRN IBUPROFEN 10516681641 No Longer Active Alina Castaneda MD PhD Active NIACIN ER 500 MG ORAL TABLET EXTENDED RELEASE 4 qHS (for triglycerides) 01/13 NIACIN 69815870980 No Longer Active Alina Castaneda MD PhD Active SAPHRIS 5 MG SUBLINGUAL TABLET SUBLINGUAL by mouth twice a day ASENAPINE MALEATE 85081478414 No Longer Active Marvel MARROQUIN Active ACETAMINOPHEN 500 MG ORAL TABLET 2 Q 6 hr. PRN ACETAMINOPHEN 60945077562 No Longer Active Maljohn Ziglari LOPEZ Active ORPHENADRINE CITRATE ER 100 MG ORAL TABLET EXTENDED RELEASE 12 HOUR 1 every 12 hr. as needed ORPHENADRINE CITRATE 19712126724 No Longer Active Alina Castaneda MD PhD Active NIACIN ER 500 MG ORAL TABLET EXTENDED RELEASE 2 qHS NIACIN 45108595450 No Longer Active Alina Castaneda MD PhD Active AMOXICILLIN 500 MG ORAL CAPSULE 2 po BID x 10 days AMOXICILLIN 26959090234 No Longer Active Alina Castaneda MD PhD Active HYDROCODONE-ACETAMINOPHEN 7.5-325 MG ORAL TABLET 1 four times a day as needed for pain HYDROCODONE-ACETAMINOPHEN 94544522928 No Longer Active Alina Castaneda MD PhD Active DOXEPIN HCL 10 MG ORAL CAPSULE Take 1 tablet by mouth daily DOXEPIN HCL 70686498113 No Longer Active Salina Han A Active NAVANE 10 MG CAPS 1/2 tablet twice a day THIOTHIXENE No Longer Active Salina ROBBINSA Active CYCLOBENZAPRINE HCL 10 MG ORAL TABLET 1/2 tablet by mouth every 8 hours as needed for muscle spasms CYCLOBENZAPRINE HCL 12295528609 No Longer Active Alina Castaneda MD PhD Active BACTROBAN 2 % EXTERNAL CREAM apply to ear and nose twice daily MUPIROCIN CALCIUM 61170574473 No Longer Active Alina Castaneda MD PhD Active HYDROCODONE-ACETAMINOPHEN 5-325 MG ORAL TABLET take one tablet by mouth every four hours as needed for pain HYDROCODONE-ACETAMINOPHEN 69006805148 No Longer Active Alina Castaneda MD PhD Active ZYPREXA 5 MG ORAL TABLET take one tablet by mouth every evening OLANZAPINE 36417418117 No Longer Active Alina Castaneda MD PhD Active ALBUTEROL SULFATE (2.5 MG/3ML) 0.083% INHALATION NEBULIZATION SOLUTION one vial per nebulizer TID and PRN cough/soa ALBUTEROL SULFATE 01117922963 No Longer Active Alina Castaneda MD PhD Active GUAIFENESIN ER 600 MG ORAL TABLET EXTENDED RELEASE 12 HOUR 1 tablet by mouth twice daily if needed for cough GUAIFENESIN 00878112021 No Longer Active Marvel MARROQUIN Active AZITHROMYCIN 500 MG INTRAVENOUS SOLUTION RECONSTITUTED 1 po q day AZITHROMYCIN 09419190072 No Longer Active Alina Castaneda MD PhD Active PROMETHAZINE-CODEINE 6.25-10 MG/5ML ORAL SYRUP 1 tsp po q 6 hours prn cough PROMETHAZINE-CODEINE 20466430207 No Longer Active Alina Castaneda MD PhD Active CEFDINIR 300 MG ORAL CAPSULE by mouth twice a day CEFDINIR 03549989385 No Longer Active Alina Castaneda MD PhD Active METFORMIN HCL ER 500 MG ORAL TABLET EXTENDED RELEASE 24 HOUR Take 3 tablets by mouth everyday METFORMIN HCL 86819514202 No Longer Active Alina Castaneda MD PhD Active LEVEMIR 100 UNIT/ML SUBCUTANEOUS SOLUTION 90 units SQ qHS INSULIN DETEMIR 65178932629 No Longer Active Marvel MARROQUIN Active TOPROL XL 100 MG ORAL TABLET EXTENDED RELEASE 24 HOUR 1 @ HS METOPROLOL SUCCINATE 28790086638 No Longer Active Marvel MARROQUIN Active ALLOPURINOL 300 MG ORAL TABLET Take one by mouth daily ALLOPURINOL 77967208419 Active Mima Erazo INSURANCE SALES PROFESSIONAL Active ZYPREXA 10 MG ORAL TABLET Take one by mouth daily OLANZAPINE 97969890110 No Longer Active Alina Castaneda MD PhD Active NOVOLOG 100 UNIT/ML SUBCUTANEOUS SOLUTION 40 units with every meal INSULIN ASPART 67244833069 No Longer Active Alina Castaneda MD PhD Active VERAPAMIL HCL ER 120 MG ORAL TABLET EXTENDED RELEASE 1 qPM 09/08 VERAPAMIL HCL 67802744511 No Longer Active Salina ROJAS Active ZYPREXA 15 MG ORAL TABLET Take 1 tablet by mouth daily OLANZAPINE 51240458343 No Longer Active Marvel MARROQUIN Active ALBUTEROL SULFATE (2.5 MG/3ML) 0.083% INHALATION NEBULIZATION SOLUTION 1 neb tid and prn cough ALBUTEROL SULFATE 24564856617 No Longer Active Alina Castaneda MD PhD Active LANTUS 100 UNIT/ML SUBCUTANEOUS SOLUTION 60 units sq q hs INSULIN GLARGINE 33107057170 No Longer Active CRYSTAL Suarez Active ALBUTEROL SULFATE (2.5 MG/3ML) 0.083% INHALATION NEBULIZATION SOLUTION 1 neb tid and prn cough ALBUTEROL SULFATE (2.5 MG/3ML) 0.083% INHALATION NEBULIZATION SOLUTION 172366 ALBUTEROL SULFATE Inactive ZYPREXA 15 MG ORAL TABLET Take 1 tablet by mouth daily ZYPREXA 15 MG ORAL TABLET 098579 OLANZAPINE Inactive VERAPAMIL HCL ER 120 MG ORAL TABLET EXTENDED RELEASE 1 qPM 09/08 VERAPAMIL HCL ER 120 MG ORAL TABLET EXTENDED RELEASE VERAPAMIL HCL Inactive ZYPREXA 10 MG ORAL TABLET Take one by mouth daily ZYPREXA 10 MG ORAL TABLET 318647 OLANZAPINE Inactive TOPROL XL 100 MG ORAL TABLET EXTENDED RELEASE 24 HOUR 1 @ HS TOPROL XL 100 MG ORAL TABLET EXTENDED RELEASE 24 HOUR METOPROLOL SUCCINATE Inactive LEVEMIR 100 UNIT/ML SUBCUTANEOUS SOLUTION 90 units SQ qHS LEVEMIR 100 UNIT/ML SUBCUTANEOUS SOLUTION INSULIN DETEMIR Inactive PROMETHAZINE-CODEINE 6.25-10 MG/5ML ORAL SYRUP 1 tsp po q 6 hours prn cough PROMETHAZINE-CODEINE 6.25-10 MG/5ML ORAL SYRUP 679116 PROMETHAZINE-CODEINE Inactive GUAIFENESIN ER 600 MG ORAL TABLET EXTENDED RELEASE 12 HOUR 1 tablet by mouth twice daily if needed for cough GUAIFENESIN ER 600 MG ORAL TABLET EXTENDED RELEASE 12 HOUR GUAIFENESIN Inactive ALBUTEROL SULFATE (2.5 MG/3ML) 0.083% INHALATION NEBULIZATION SOLUTION one vial per nebulizer TID and PRN cough/soa ALBUTEROL SULFATE (2.5 MG/3ML) 0.083% INHALATION NEBULIZATION SOLUTION 660744 ALBUTEROL SULFATE Inactive ZYPREXA 5 MG ORAL TABLET take one tablet by mouth every evening ZYPREXA 5 MG ORAL TABLET 193846 OLANZAPINE Inactive HYDROCODONE-ACETAMINOPHEN 5-325 MG ORAL TABLET take one tablet by mouth every four hours as needed for pain HYDROCODONE-ACETAMINOPHEN 5-325 MG ORAL TABLET 142697 HYDROCODONE-ACETAMINOPHEN Inactive BACTROBAN 2 % EXTERNAL CREAM apply to ear and nose twice daily BACTROBAN 2 % EXTERNAL CREAM 647964 MUPIROCIN CALCIUM Inactive CYCLOBENZAPRINE HCL 10 MG ORAL TABLET 1/2 tablet by mouth every 8 hours as needed for muscle spasms CYCLOBENZAPRINE HCL 10 MG ORAL TABLET 340203 CYCLOBENZAPRINE HCL Inactive NAVANE 10 MG CAPS 1/2 tablet twice a day NAVANE 10 MG CAPS THIOTHIXENE Inactive DOXEPIN HCL 10 MG ORAL CAPSULE Take 1 tablet by mouth daily DOXEPIN HCL 10 MG ORAL CAPSULE 5361782 DOXEPIN HCL Inactive HYDROCODONE-ACETAMINOPHEN 7.5-325 MG ORAL TABLET 1 four times a day as needed for pain HYDROCODONE-ACETAMINOPHEN 7.5-325 MG ORAL TABLET 822994 HYDROCODONE-ACETAMINOPHEN Inactive NIACIN ER 500 MG ORAL [...] hr. PRN ACETAMINOPHEN 500 MG ORAL TABLET 034590 ACETAMINOPHEN Inactive SAPHRIS 5 MG SUBLINGUAL TABLET SUBLINGUAL by mouth twice a day SAPHRIS 5 MG SUBLINGUAL TABLET SUBLINGUAL ASENAPINE MALEATE Inactive NIACIN ER 500 MG ORAL TABLET EXTENDED RELEASE 4 qHS (for triglycerides) 01/13 NIACIN ER 500 MG ORAL TABLET EXTENDED RELEASE NIACIN Inactive IBUPROFEN 200 MG ORAL TABLET 1 Q 6 hr. PRN IBUPROFEN 200 MG ORAL TABLET 202119 IBUPROFEN Inactive FLUTICASONE PROPIONATE 50 MCG/ACT NASAL SUSPENSION 2 sprays each nostril qDay x 30 days FLUTICASONE PROPIONATE 50 MCG/ACT NASAL SUSPENSION 7050174 FLUTICASONE PROPIONATE Inactive EQL TRUETEST TEST IN [...] at HS ZYPREXA 7.5 MG ORAL TABLET 437978 OLANZAPINE Inactive THIOTHIXENE 5 MG ORAL CAPSULE by mouth twice a day THIOTHIXENE 5 MG ORAL CAPSULE 110540 THIOTHIXENE Inactive UROXATRAL 10 MG ORAL TABLET EXTENDED RELEASE 24 HOUR Take 1 tablet by mouth daily UROXATRAL 10 MG ORAL TABLET EXTENDED RELEASE 24 HOUR ALFUZOSIN HCL Inactive ACYCLOVIR 400 MG ORAL TABLET 1 pill three times daily x 5 days, for cold sore outbreak ACYCLOVIR 400 MG ORAL TABLET 308630 ACYCLOVIR Inactive TRUETEST TEST IN VITRO STRIP check sugars 4x/day TRUETEST TEST IN VITRO STRIP GLUCOSE BLOOD Inactive HUMALOG 100 UNIT/ML SUBCUTANEOUS SOLUTION Take 20 units with breakfast, 10u with lunch and suppetr. HUMALOG 100 UNIT/ML SUBCUTANEOUS SOLUTION INSULIN LISPRO (HUMAN) Inactive CYCLOBENZAPRINE HCL 10 MG ORAL TABLET 1 tablet by mouth three times daily, scheduled CYCLOBENZAPRINE HCL 10 MG ORAL TABLET 479387 CYCLOBENZAPRINE HCL Inactive ACCU-CHEK ROSA IN VITRO STRIP use strips with device to check blood sugars 3 times daily ACCU-CHEK ROSA IN VITRO STRIP GLUCOSE BLOOD Inactive ACCU-CHEK ROSA DEVICE Use device to check blood sugars ACCU-CHEK ROSA DEVICE BLOOD GLUCOSE MONITORING SUPPL Inactive FLUVOXAMINE MALEATE 100 MG ORAL TABLET Take 1/2 tab at noon 03/04 FLUVOXAMINE MALEATE 100 MG ORAL TABLET 111085 FLUVOXAMINE MALEATE Inactive FLUVOXAMINE MALEATE 100 MG ORAL TABLET Take one (1) tablet by mouth am, 1/2 at noon FLUVOXAMINE MALEATE 100 MG ORAL TABLET 237131 FLUVOXAMINE MALEATE Inactive BACTROBAN 2 % EXTERNAL CREAM Apply to affected area BID for up to 10 days BACTROBAN 2 % EXTERNAL CREAM 594997 MUPIROCIN CALCIUM Inactive NOVOFINE 32G X 6 MM use one four times per day NOVOFINE 32G X 6 MM INSULIN PEN NEEDLE Inactive TRAZODONE HCL 100 MG ORAL TABLET 1 tab by mouth for sleep TRAZODONE HCL 100 MG ORAL TABLET 245347 TRAZODONE HCL Inactive LOVAZA 1 GM ORAL CAPSULE 4 daily (for triglycerides) LOVAZA 1 GM ORAL CAPSULE 430581 EFULH-4-MDBE ETHYL ESTERS Inactive METFORMIN HCL ER 500 [...] bladder TOLTERODINE TARTRATE 2 MG ORAL TABLET 743849 TOLTERODINE TARTRATE Inactive COLACE 100 MG ORAL CAPSULE 1 pill by mouth twice daily, for constipation 2014 COLACE 100 MG ORAL CAPSULE 8466238 DOCUSATE SODIUM Inactive LOMOTIL 2.5-0.025 MG ORAL TABLET take 1-2 tabs PO after each stool, no more than 8 in 24 hours LOMOTIL 2.5-0.025 MG ORAL TABLET 6841870 DIPHENOXYLATE-ATROPINE Inactive ZOFRAN 4 MG ORAL TABLET 1 po q4hr PRN Nausea ZOFRAN 4 MG ORAL TABLET 208125 ONDANSETRON HCL Inactive HYDROCODONE-ACETAMINOPHEN 5-325 MG ORAL TABLET 2 tabs by mouth three times daily for pain HYDROCODONE-ACETAMINOPHEN 5-325 MG ORAL TABLET 361602 HYDROCODONE-ACETAMINOPHEN Inactive ZOLPIDEM TARTRATE 10 MG ORAL TABLET take at bedtime ZOLPIDEM TARTRATE 10 MG ORAL TABLET 704315 ZOLPIDEM TARTRATE Inactive LISINOPRIL 20 MG ORAL TABLET 1 BID LISINOPRIL 20 MG ORAL TABLET 240580 LISINOPRIL Inactive TRAVATAN Z 0.004 % OPHTHALMIC SOLUTION 1 gtt each eye daily TRAVATAN Z 0.004 % OPHTHALMIC SOLUTION TRAVOPROST Inactive LATUDA 60 MG ORAL TABLET Take one by mouth daily LATUDA 60 MG ORAL TABLET LURASIDONE HCL Inactive FLUVOXAMINE MALEATE 50 MG ORAL TABLET 1 tab by mouth daily 04/01 FLUVOXAMINE MALEATE 50 MG ORAL TABLET 789486 FLUVOXAMINE MALEATE Inactive LEVEMIR FLEXTOUCH 100 UNIT/ML [...] 30G 3 a day TRUEPLUS LANCETS 30G [id number] LANCETS Inactive AMITIZA 24 MCG ORAL CAPSULE [...] noon FLUVOXAMINE MALEATE 100 MG ORAL TABLET 338992 FLUVOXAMINE MALEATE Inactive FLONASE ALLERGY RELIEF 50 MCG/ACT NASAL SUSPENSION One spray each nostril BID x 1 week then daily FLONASE ALLERGY RELIEF 50 MCG/ACT NASAL SUSPENSION [id number] FLUTICASONE PROPIONATE Inactive IMODIUM A-D 2 MG ORAL TABLET 1 tab QID as needed IMODIUM A-D 2 MG ORAL TABLET 170658 LOPERAMIDE HCL Inactive MYLANTA GAS RELIEF MAXIMUM STR 125 MG ORAL CAPSULE 30cc every 4 hours prn MYLANTA GAS RELIEF MAXIMUM STR 125 MG ORAL CAPSULE SIMETHICONE Inactive TRUEPLUS LANCETS 30G 3x a day TRUEPLUS LANCETS 30G [id number] LANCETS Inactive TRUE METRIX BLOOD GLUCOSE TEST [...] headaches TRAZODONE HCL 100 MG ORAL TABLET 343213 TRAZODONE HCL Inactive TYLENOL 8 HOUR 650 [...] evening TAMSULOSIN HCL 0.4 MG ORAL CAPSULE 820935 TAMSULOSIN HCL Inactive [facility] MELATONIN 3 MG ORAL TABLET give 1 tab by mouth at HS [facility] MELATONIN 3 MG ORAL TABLET 722360 MELATONIN Inactive SEROQUEL 100 MG ORAL TABLET 1 tab daily SEROQUEL 100 MG ORAL TABLET 033789 QUETIAPINE FUMARATE Inactive AMARYL 2 MG ORAL TABLET give 2.5 tabs PO daily AMARYL 2 MG ORAL TABLET 288649 GLIMEPIRIDE Inactive SEROQUEL 25 MG ORAL TABLET Take two tabs by mouth in the morning, take 4 tablets at night SEROQUEL 25 MG ORAL TABLET 502361 QUETIAPINE FUMARATE Inactive CEFDINIR 300 MG ORAL CAPSULE by mouth twice a day CEFDINIR 300 MG ORAL CAPSULE 383400 CEFDINIR Inactive AZITHROMYCIN 500 MG INTRAVENOUS SOLUTION RECONSTITUTED 1 po q day AZITHROMYCIN 500 MG INTRAVENOUS SOLUTION RECONSTITUTED [id number] AZITHROMYCIN Inactive AMOXICILLIN 500 MG ORAL CAPSULE 2 po BID x 10 days AMOXICILLIN 500 MG ORAL CAPSULE 888503 AMOXICILLIN Inactive PENICILLIN V POTASSIUM 500 MG ORAL TABLET 1 pill by mouth three times daily PENICILLIN V POTASSIUM 500 MG ORAL TABLET 130239 PENICILLIN V POTASSIUM Inactive KEFLEX 500 MG ORAL CAPSULE 1 po BID x 7 days KEFLEX 500 MG ORAL CAPSULE 395294 CEPHALEXIN Inactive Immunizations Vaccine Administration Date Value [...] Fluvirin, Fluarix, Agriflu(>=18 yo)) Fluzone (>3 yrs.) [[id number]] Influenza, seasonal, injectable pneumococcal immunization administered Pneumovax [...] ... - Chemistry sodium, serum 135 mmol/L 455-792 1606/08/22 carbon dioxide, venous blood 28.4 mmol/L 21.0-32.0 [...] mg/g {creat} 0-29 cholesterol, serum 263 mg/dL 153-900 9670/08/22 triglyceride, serum, fasting 1312 mg/dL 30-200 HDL [...] 80 mg/L 0-19 Office Visit: TCM from care home - Lab PSA (prostate specific antigent), recommendation and action PSA ordered Encounters Code Encounter Date Provider Facility CPT-72259 [id number] Vst-Est Level III 11:00:25 CDT Shavonne Feliciano PA-C [facility]-58164 Level 3 Est. Patient 09:12:14 TOURIST INFORMATION ASSISTANT Mima Erazo [facility]-36777 Level 3 Est. Patient 16:52:51 CDT Vanessa Hickey MD [facility]-34143 Level 3 Est. Patient 17:40:16 CDT Mima Erazo [facility] CPT-25741 Level 3 Est. Patient 14:34:52 CDT Vanessa Hickey MD [facility]-10998 Level 3 Est. Patient 16:27:51 CDT Mima Erazo [facility] CPT-60093 Level 3 Est. Patient 14:39:00 TOURIST INFORMATION ASSISTANT Vanessa Hickey MD [facility] CPT-69160 Level 2 Est. Patient 18:43:34 CDT Mima Erazo [facility] CPT-67150 Level 3 Est. Patient 16:22:09 CDT Cherelle Avila [facility] CPT-63706 Level 4 Est. Patient 17:55:14 CDT Mima Erazo [facility] CPT-16714 Level 2 Est. Patient 17:13:21 CDT Alina Castaneda MD PhD [facility] CPT-69537 Level 3 Est. Patient 14:46:15 CDT Vanessa Hickey MD [facility] CPT-84145 Level 3 Est. Patient 09:34:56 CDT Alina Castaneda MD [facility]-82408 Level 3 Est. Patient 21:40:19 CDT Mima Erazo [place] CPT-58360 Level 3 Est. Patient 09:26:40 CDT Marvel Charles [facility]-98393 Level 3 Est. Patient 12:36:43 CDT Vanessa Hickey MD [facility]-80745 Level 3 Est. Patient 12:57:49 CDT Vanessa Hickey MD [facility]-49038 Level 3 Est. Patient 00:28:25 CDT Alina Castaneda MD [facility]-51573 Level 2 Est. Patient 12:52:14 CDT Alina Castaneda MD [facility]-23909 Level 3 Est. Patient 11:51:18 TOURIST INFORMATION ASSISTANT Alina Castaneda MD [facility]-64457 Level 3 Est. Patient 10:09:22 TOURIST INFORMATION ASSISTANT Alina Castaneda MD [facility]-97519 Level 3 Est. Patient 14:36:26 TOURIST INFORMATION ASSISTANT Marvel Charles [facility]-05064 Level 3 Est. Patient 13:34:47 TOURIST INFORMATION ASSISTANT Alina Castaneda MD [facility]-36333 Level 3 Est. Patient 19:52:08 TOURIST INFORMATION ASSISTANT Alina Castaneda MD [facility] CPT-14234 Level 3 Est. Patient 10:01:51 TOURIST INFORMATION ASSISTANT Marvel Charles [facility]-60833 Level 3 Est. Patient 21:54:06 CDT Vanessa Hickey MD [facility]-37050 Level 3 Est. Patient 08:54:46 CDT Alina Castaneda MD [facility]-46476 Level 3 Est. Patient 09:32:11 CDT Marvel Thurstonestela [facility]-05855 Level 3 Est. Patient 12:02:49 CDT Alina Castaneda MD [facility]-20328 Level 3 Est. Patient 19:17:33 CDT Alina Castaneda MD PhD [facility]56451 Level 3 Est. Patient 13:19:10 CDT Marvel Gurdeepajayestela [facility]-12702 Level 3 Est. Patient 08:20:05 CDT Alina Castaneda MD [facility]27755 Level 3 Est. Patient 15:17:18 CDT Alina Castaneda MD [facility]-27261 Level 3 Est. Patient 14:25:36 TOURIST INFORMATION ASSISTANT [facility]438[facility] Level 3 Est. Patient 10:09:15 TOURIST INFORMATION ASSISTANT [facility] Est[facility] Patient 21:28:43 CDT Alina Castaneda MD [facility]-95385 Level 3 Est. Patient 15:20:11 CDT Marvel Araceli [facility]-13264 Level 4 Est. Patient 19:08:12 CDT Alina Castaneda [facility]10381 Level 3 Est. Patient 15:06:39 CDT Marvel Charles [facility]-35241 Level 4 Est. Patient 17:48:15 CDT Alina Castaneda MD [facility]-18839 Level 3 Est. Patient 14:53:49 CDT Alina Castaneda MD PhD [facility]37014 Level 3 Est. Patient 09:35:16 CDT Alina Castaneda MD [facility]-56231 Level 3 Est. Patient 12:23:22 CDT Alina Castaneda MD [facility]-78494 Level 3 Est. Patient 16:19:15 CDT Alina Castaneda MD [facility]-20388 Level 3 Est. Patient 21:39:56 TOURIST INFORMATION ASSISTANT Alina Castaneda MD [facility]-65869 Level 4 Est. Patient 14:12:56 TOURIST INFORMATION ASSISTANT Alina Castaneda MD [facility]-22348 Level 2 Est. Patient 15:34:57 TOURIST INFORMATION ASSISTANT Alina Castaneda MD [facility]-68389 Level 3 Est. Patient 12:17:04 TOURIST INFORMATION ASSISTANT Alina Castaneda MD [facility]-42158 Level 3 Est. Patient 09:18:18 TOURIST INFORMATION ASSISTANT Marvel Charles [facility]-92639 Level 2 Est. Patient 21:50:24 CDT Alina Castaneda MD [facility]-75153 Level 3 Est. Patient 09:17:28 CDT Marvel Charles [facility]-61807 Level 4 Est. Patient 18:54:02 CDT Alina Castaneda MD [facility]-83436 Level 3 Est. Patient 10:47:10 CDT Alina Castaneda MD [facility]-88683 Level 3 Est. Patient 09:22:20 CDT Marvel Charles [facility]-02982 Level 3 Est. Patient 16:39:43 [facility]23 Level 3 Est. Patient 16:05:16 CDT Alina Castaneda MD [facility] CPT-80833 Level 3 Est. Patient 00:29:15 CDT Alina Castaneda MD [facility] CPT-51607 Level 3 Est. Patient 10:49:22 TOURIST INFORMATION ASSISTANT Marvel Thurstonestela [facility] CPT-85424 Level 3 Est. Patient 21:30:19 TOURIST INFORMATION ASSISTANT Alina Castaneda MD [facility] CPT-43079 Level 4 Est. Patient 17:04:11 TOURIST INFORMATION ASSISTANT [facility]85598 Level 3 Est. Patient 15:34:11 TOURIST INFORMATION ASSISTANT [facility]-94035 Level 2 Est. Patient 12:51:58 TOURIST INFORMATION ASSISTANT Alina Castaneda MD [facility] CPT-74347 Level 3 Est. Patient 13:20:01 TOURIST INFORMATION ASSISTANT Alina Castaneda MD [facility] CPT-26840 Level 3 Est. Patient 09:23:35 CDT Alina Castaneda MD [facility] Procedures Code Procedure Name Date Entry Date Standard Description CPT-G0439 [facility] Annual Wellness Exam 15:49:52 TOURIST INFORMATION ASSISTANT CPT-39372 Level 3 Long Term 13:20:19 CDT CPT-TCMM Transitional Care Mgmt-Moderate 12:32:19 CDT CPT-88735 Level 2 Long Term 09:01:11 CDT CPT-04416 HGBA1C - LAB USE ONLY 09:30:27 TOURIST INFORMATION ASSISTANT CPT-67344 BMP - LAB USE ONLY 09:30:27 TOURIST INFORMATION ASSISTANT CPT-82203 Venipuncture Draw Fee 09:30:26 TOURIST INFORMATION ASSISTANT CPT-TCMM Transitional Care Mgmt-Moderate 10:25:31 CDT CPT-05685 Bladder Scan 14:34:53 CDT CPT-50781 Bladder Scan 14:39:01 TOURIST INFORMATION ASSISTANT CPT-TCMM Transitional Care Mgmt-Moderate 10:30:19 TOURIST INFORMATION ASSISTANT CPT-52440 Bladder Scan 12:36:44 CDT CPT-19366 Bladder Scan 21:54:06 CDT CPT-G0008 Administration of Influenza Virus Vaccine 13:05:26 CDT CPT-50084 Fluzone Quadrivalent Intramuscular Suspension 0.5 ML 13: 05:26 CDT CPT-33122 Administration single or combination vaccine inc oral 11 :49:51 CDT CPT-79788 Pneumovax 11:49:51 CDT CPT-07687 Ribs unilateral 2V 12:37:22 TOURIST INFORMATION ASSISTANT CPT-98308 Chest 2V Frontal and Lat 17:15:26 CDT CPT-61702 Abx/Therapy Injection 18:54:02 CDT CPT-J0696 Rocephin 1000 mg (Ceftriaxone) 16:00:32 CDT CPT-77154 Chest 2V Frontal and Lat 15:26:45 CDT CPT-44560 Chest 2V Frontal and Lat 10:23:27 CDT CPT-19881 Venipuncture Draw Fee 10:11:00 CDT CPT-13831 Administration single or combination vaccine inc oral 11 :56:38 CDT CPT-01454 Influenza split virus > age 3 11:56:38 CDT CPT-76275 Venipuncture Draw Fee 08:49:54 TOURIST INFORMATION ASSISTANT CPT-22331 EKG Trac and Interp 17:54:19 TOURIST INFORMATION ASSISTANT
--- OUTSIDE RECORDS SUMMARY | 2018-07-02 12:21 | XMS REPORT | Clinical Summary ---
Author Author Admin, MIKEE Organization [facility] Address Unknown Phone Unavailable Allergies, Adverse Reactions, 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 Erazo HUMANITIES INSTRUCTOR Benign paroxysmal positional vertigo Vertigo, benign paroxysmal position 386.11 Inactive Mima Erazo HUMANITIES INSTRUCTOR Benign paroxysmal positional vertigo High-risk sexual behavior [...] EXTENDED RELEASE 1 tab BID VERAPAMIL HCL 08385333891 Active Shavonne Feliciano PA-C Active SEROQUEL 25 MG ORAL TABLET Take two tabs by mouth in the morning, take 4 tablets at night QUETIAPINE FUMARATE 20378470825 No Longer Active Shavonne Feliciano PA-C Active EFFEXOR XR 150 MG ORAL CAPSULE EXTENDED RELEASE 24 HOUR 1 tab daily VENLAFAXINE HCL 05924098751 Active Shavonne Feliciano PA-C Active QUETIAPINE FUMARATE 25 MG ORAL TABLET 2 tabs BID QUETIAPINE FUMARATE 32388244841 Active Shavonne Feliciano PA-C Active QUETIAPINE FUMARATE 100 MG ORAL TABLET 1 tab PO at HS QUETIAPINE FUMARATE 31572751927 Active Shaovnne Feliciano PA-C Active AMARYL 2 MG ORAL TABLET give 2.5 tabs PO daily GLIMEPIRIDE 33422244066 No Longer Active Shavonne Feliciano PA-C Active AMARYL 2 MG ORAL TABLET give 2 tabs PO in the morning GLIMEPIRIDE 28087640782 Active Shavonne Feliciano PA-C Active FENOFIBRATE 145 MG ORAL TABLET 1 tab PO in the morning FENOFIBRATE 05164073194 Active Shavonne Feliciano PA-C Active SEROQUEL 100 MG ORAL TABLET 1 tab daily QUETIAPINE FUMARATE 98801196040 No Longer Active Shavonne Feliciano PA-C Active [facility] MELATONIN 3 MG ORAL TABLET give 1 tab by mouth at HS MELATONIN 94542956274 No Longer Active Gabrielle Marquez MA Active NOVOLOG FLEXPEN 100 UNIT/ML SUBCUTANEOUS SOLUTION PEN-INJECTOR sliding scale INSULIN ASPART 94353694415 Active Gabrielle Marquez MA Active METFORMIN HCL 1000 MG ORAL TABLET 1 tab by mouth BID METFORMIN HCL 69498897653 Active Gabrielle Marquez MA Active [facility] MELATONIN 3 MG ORAL TABLET 1 tab nightly MELATONIN 23912785982 Active Gabrielle Marquez MA Active TAMSULOSIN HCL 0.4 MG ORAL CAPSULE give 2 capsules PO each evening TAMSULOSIN HCL 47084502093 No Longer Active Gabrielle Marquez MA Active VITAMIN D 2000 UNIT ORAL CAPSULE Take one by mouth daily CHOLECALCIFEROL 94098153105 No Longer Active Gabrielle Marquez MA Active LATUDA 40 MG ORAL TABLET 1.5 tab by mouth in the afternoon LURASIDONE HCL 91864749231 Active Gabrielle Marquez MA Active LEVEMIR 100 UNIT/ML SUBCUTANEOUS SOLUTION 10 u at bedtime INSULIN DETEMIR 96223021414 Active Gabrielle Marquez MA Active TAMSULOSIN HCL 0.4 MG ORAL CAPSULE 2 every night for urine flow TAMSULOSIN HCL 96987765456 Active Gabrielle Marquez MA Active DIVALPROEX SODIUM 125 MG ORAL TABLET DELAYED RELEASE 1 tab each morning 02/17 DIVALPROEX SODIUM 24585163709 Active Gabrielle Marquez MA Active D 1000 TABLET 2 tab by mouth BID CHOLECALCIFEROL TABS 27089267339 Active Gabrielle Marquez MA Active ALIGN 4 MG ORAL CAPSULE 1 tab at hs PROBIOTIC PRODUCT 95528614045 Active Gabrielle Marquez MA Active CLONAZEPAM 1 MG ORAL TABLET 1 pill by mouth two times daily CLONAZEPAM 32242944059 Active Gabrielle Marquez MA Active OCEAN NASAL SPRAY SOLUTION 2 sprays in both nostrils every 8 hours as needed for dry mucous membranes SALINE SOLN 03416058010 Active Mason Loredo MD Active BETHANECHOL CHLORIDE 25 MG ORAL TABLET Take 1 tablet mouth four times a day BETHANECHOL CHLORIDE 75941077212 Active Mason Loredo MD Active [facility] LUBRICANT EYE DROPS 0.4-0.3 % OPHTHALMIC SOLUTION POLYETHYL GLYCOL-PROPYL GLYCOL 49558543308 No Longer Active Mason Loredo MD Active TYLENOL 8 HOUR 650 MG ORAL TABLET EXTENDED RELEASE 1 tab QID prn ACETAMINOPHEN 39568937986 No Longer Active Mason Loredo MD Active TOPAMAX 25 MG ORAL TABLET 1 tab BID PRN TOPIRAMATE 28472143362 Active Mason Loredo MD Active TIMOPTIC OCUDOSE 0.5 % OPHTHALMIC SOLUTION instill one drop into both eyes q12H TIMOLOL MALEATE 08315247759 Active Mason Loredo MD Active TRAZODONE HCL 100 MG ORAL TABLET 1 every night to prevent headaches TRAZODONE HCL 14185321447 No Longer Active Mason Loredo MD Active TRAVATAN Z 0.004 % OPHTHALMIC SOLUTION 1 drop each eye daily 2017 TRAVOPROST 20899882810 No Longer Active Mason Loredo MD Active LATUDA 60 MG ORAL TABLET 1 tab daily LURASIDONE HCL 11640370354 No Longer Active Mason Loredo MD Active MORPHINE SULFATE ER 30 MG ORAL TABLET EXTENDED RELEASE Take one capsule BID MORPHINE SULFATE 71598015375 No Longer Active Mason Loredo MD Active TRUE METRIX BLOOD GLUCOSE TEST IN VITRO STRIP Check blood sugars 3x/day. 2015 GLUCOSE BLOOD 28288162468 No Longer Active Mason Loredo MD Active TRUEPLUS LANCETS 30G 3x a day LANCETS 70383790480 No Longer Active Mason Loredo MD Active MYLANTA GAS RELIEF MAXIMUM STR 125 MG ORAL CAPSULE 30cc every 4 hours prn SIMETHICONE 83001862566 No Longer Active Mason Loredo MD Active IMODIUM A-D 2 MG ORAL TABLET 1 tab QID as needed LOPERAMIDE HCL 29789205428 No Longer Active Mason Loredo MD Active FLONASE ALLERGY RELIEF 50 MCG/ACT NASAL SUSPENSION One spray each nostril BID x 1 week then daily FLUTICASONE PROPIONATE 99880571775 No Longer Active Mason Loredo MD Active FLUVOXAMINE MALEATE 100 MG ORAL TABLET take one tab every AM et HS, and take 1 /2 tab at noon FLUVOXAMINE MALEATE 04632076532 No Longer Active Mason Loredo MD Active BD PEN NEEDLE MINI U/F 31G X 5 MM 4 a day INSULIN PEN NEEDLE 32920862232 No Longer Active Mason Loredo MD Active AMITIZA 24 MCG ORAL CAPSULE Take one capsule BID for constipation LUBIPROSTONE 23024508234 No Longer Active Mason Loredo MD Active TRUEPLUS LANCETS 30G 3 a day LANCETS 41755436218 No Longer Active Mason Loredo MD Active CORICIDIN HBP CONGESTION/COUGH 10-200 MG ORAL CAPSULE Take as directed on box as needed for cold/flu symptoms DEXTROMETHORPHAN- GUAIFENESIN 39454988914 No Longer Active Mason Loredo MD Active OMEGA-3 300 MG ORAL CAPSULE 4 caps by mouth daily OMEGA-3 FATTY ACIDS 08484526916 No Longer Active Mason Loredo MD Active HUMALOG KWIKPEN 100 UNIT/ML SUBCUTANEOUS SOLUTION PEN-INJECTOR sliding scale if needed INSULIN LISPRO (HUMAN) 21832942331 No Longer Active Mason Loredo MD Active TRUETEST TEST IN VITRO STRIP check blood sugars 3x/day GLUCOSE BLOOD 78802671871 No Longer Active Mason Loredo MD Active ALFUZOSIN HCL ER 10 MG ORAL TABLET EXTENDED RELEASE 24 HOUR 1 tablet daily ALFUZOSIN HCL 04858722882 No Longer Active Mason Loredo MD Active BD INSULIN SYRINGE 28G X 1/2" 1 ML 1 four times per day INSULIN SYRINGE-NEEDLE U-100 61652581714 No Longer Active Mason Loredo MD Active LEVEMIR FLEXTOUCH 100 UNIT/ML SUBCUTANEOUS SOLUTION PEN-INJECTOR 60 units SQ each evening, for diabetes INSULIN DETEMIR 13388196607 No Longer Active Mason Loredo MD Active LACTULOSE 20 GM/30ML ORAL SOLUTION give 30 Ml PO BID PRN LACTULOSE 73279719802 Active Mason Loredo MD Active COLACE 100 MG ORAL CAPSULE 1 tab BID PRN DOCUSATE SODIUM 85311494685 Active Mason Loredo MD Active LATANOPROST 0.005 % OPHTHALMIC SOLUTION instill 1 drop in both eyes at bed time LATANOPROST 18058462855 Active Mason Loredo MD Active MIRALAX ORAL POWDER 17g by mouth q12h, for constipation POLYETHYLENE GLYCOL 3350 78368788684 Active Mason Loredo MD Active IBUPROFEN 400 MG ORAL TABLET 1 tab Q6H PRN IBUPROFEN 94730781242 Active Mason Loredo MD Active FLUVOXAMINE MALEATE 50 MG ORAL TABLET 1 tab by mouth daily 04/01 FLUVOXAMINE MALEATE 33114323323 No Longer Active Mima Erazo APRN Active TRUE METRIX METER w/Device KIT Check blood sugars 3x/day BLOOD GLUCOSE MONITORING SUPPL 08745839898 Active Marvel Mackenzieglari ROLLER SKATES ASSEMBLER Active LATUDA 60 MG ORAL TABLET Take one by mouth daily LURASIDONE HCL 74071986315 No Longer Active Mima Erazo APRN Active [facility] MILK OF MAGNESIA 400 MG/5ML ORAL SUSPENSION 30ml by mouth bid prn MAGNESIUM HYDROXIDE 86322808751 Active Mason Loredo MD Active TRAVATAN Z 0.004 % OPHTHALMIC SOLUTION 1 gtt each eye daily TRAVOPROST 87892598976 No Longer Active Mason Loredo MD Active LISINOPRIL 20 MG ORAL TABLET 1 BID LISINOPRIL 17806538956 No Longer Active Mason Loredo MD Active ZOLPIDEM TARTRATE 10 MG ORAL TABLET take at bedtime ZOLPIDEM TARTRATE 58501242498 No Longer Active Mason Loredo MD Active HYDROCODONE-ACETAMINOPHEN 5-325 MG ORAL TABLET 2 tabs by mouth three times daily for pain HYDROCODONE-ACETAMINOPHEN 39958248995 No Longer Active Mason Loredo MD Active ZOFRAN 4 MG ORAL TABLET 1 po q4hr PRN Nausea ONDANSETRON HCL 83767660628 No Longer Active Mason Loredo MD Active LOMOTIL 2.5-0.025 MG ORAL TABLET take 1-2 tabs PO after each stool, no more than 8 in 24 hours DIPHENOXYLATE-ATROPINE 70827641224 No Longer Active Mason Loredo MD Active COLACE 100 MG ORAL CAPSULE 1 pill by mouth twice daily, for constipation 2014 DOCUSATE SODIUM 66593118545 No Longer Active Mima Yokum HUMANITIES INSTRUCTOR Active TOLTERODINE TARTRATE 2 MG ORAL TABLET 1 pill twice daily, for bladder TOLTERODINE TARTRATE 39899575019 No Longer Active Vanessa Hickey MD Active AMITIZA 24 MCG ORAL CAPSULE Take one capsule BID for constipation. LUBIPROSTONE 93772829709 No Longer Active Vanessa Hickey MD Active METOPROLOL SUCCINATE ER 100 MG ORAL TABLET EXTENDED RELEASE 24 HOUR 1 by mouth daily for blood pressure METOPROLOL SUCCINATE 66018122076 No Longer Active Grace Nelsonb RMA Active METFORMIN HCL ER 500 MG ORAL TABLET EXTENDED RELEASE 24 HOUR Take three tablets by mouth everyday METFORMIN HCL 75364411353 No Longer Active Grace Azam RMA Active LOVAZA 1 GM ORAL CAPSULE 4 daily (for triglycerides) [id number] ETHYL ESTERS 28072120910 No Longer Active Grace Azam RMA Active TRAZODONE HCL 100 MG ORAL TABLET 1 tab by mouth for sleep TRAZODONE HCL 46284601075 No Longer Active Grace Azam RMA Active NOVOFINE 32G X 6 MM use one four times per day INSULIN PEN NEEDLE 26133372736 No Longer Active Grace Azam RMA Active BACTROBAN 2 % EXTERNAL CREAM Apply to affected area BID for up to 10 days MUPIROCIN CALCIUM 15016189842 No Longer Active Grace Azam RMA Active KEFLEX 500 MG ORAL CAPSULE 1 po BID x 7 days CEPHALEXIN 72982733406 No Longer Active Cherelle Avila HUMANITIES INSTRUCTOR Active FLUVOXAMINE MALEATE 100 MG ORAL TABLET Take one (1) tablet by mouth am, 1/2 at noon FLUVOXAMINE MALEATE 37200631525 No Longer Active Mima Erazo HUMANITIES INSTRUCTOR Active FLUVOXAMINE MALEATE 100 MG ORAL TABLET Take 1/2 tab at noon 03/04 FLUVOXAMINE MALEATE 98439894723 No Longer Active Cherelle Avila HUMANITIES INSTRUCTOR Active ACCU-CHEK ROSA DEVICE Use device to check blood sugars BLOOD GLUCOSE MONITORING SUPPL 53320652334 No Longer Active Brooksjohn MARROQUIN Active ACCU-CHEK ROSA IN VITRO STRIP use strips with device to check blood sugars 3 times daily GLUCOSE BLOOD 24924613926 No Longer Active Brooksjohn MARROQUIN Active VERAPAMIL HCL ER 180 MG ORAL TABLET EXTENDED RELEASE 1 pill by mouth twice daily, for migraine prevention VERAPAMIL HCL 22028259708 Active Mima Erazo HUMANITIES INSTRUCTOR Active CYCLOBENZAPRINE HCL 10 MG ORAL TABLET 1 tablet by mouth three times daily, scheduled CYCLOBENZAPRINE HCL 10532140726 No Longer Active Alina Castaneda MD PhD Active HUMALOG 100 UNIT/ML SUBCUTANEOUS SOLUTION Take 20 units with breakfast, 10u with lunch and suppetr. INSULIN LISPRO (HUMAN) 33927351114 No Longer Active Alina Castaneda MD PhD Active TRUETEST TEST IN VITRO STRIP check sugars 4x/day GLUCOSE BLOOD 79604902582 No Longer Active Alina Castaneda MD PhD Active MORPHINE SULFATE 30 MG ORAL TABLET 1 pill by mouth twice daily, for pain 2013 MORPHINE SULFATE 75807654191 No Longer Active Mason Loredo MD Active ACYCLOVIR 400 MG ORAL TABLET 1 pill three times daily x 5 days, for cold sore outbreak ACYCLOVIR 40655396469 No Longer Active Alina Castaneda MD PhD Active PENICILLIN V POTASSIUM 500 MG ORAL TABLET 1 pill by mouth three times daily PENICILLIN V POTASSIUM 93570479062 No Longer Active Alina Castaneda MD PhD Active UROXATRAL 10 MG ORAL TABLET EXTENDED RELEASE 24 HOUR Take 1 tablet by mouth daily ALFUZOSIN HCL 87168034158 No Longer Active Alina Castaneda MD PhD Active THIOTHIXENE 5 MG ORAL CAPSULE by mouth twice a day THIOTHIXENE 01311818148 No Longer Active Alina Castaneda MD PhD Active ZYPREXA 7.5 MG ORAL TABLET 1 at HS OLANZAPINE 25641889232 No Longer Active Alina Castaneda MD PhD Active DETROL LA 4 MG ORAL CAPSULE EXTENDED RELEASE 24 HOUR Take 1 tablet by mouth daily TOLTERODINE TARTRATE 20065471580 No Longer Active Alina Castaneda MD PhD Active TERESE CONTOUR TEST IN VITRO STRIP monitor blood sugars 3x/day GLUCOSE BLOOD 59155988107 No Longer Active Alina Castaneda MD PhD Active EQL TRUETEST TEST IN VITRO STRIP Test blood sugar TID GLUCOSE BLOOD 05800705641 No Longer Active Alina Castaneda MD PhD Active FLUTICASONE PROPIONATE 50 MCG/ACT NASAL SUSPENSION 2 sprays each nostril qDay x 30 days FLUTICASONE PROPIONATE 95411404934 No Longer Active Alina Castaneda MD PhD Active IBUPROFEN 200 MG ORAL TABLET 1 Q 6 hr. PRN IBUPROFEN 66638484811 No Longer Active Alina Castaneda MD PhD Active NIACIN ER 500 MG ORAL TABLET EXTENDED RELEASE 4 qHS (for triglycerides) 01/13 NIACIN 11974286305 No Longer Active Alina Castaneda MD PhD Active SAPHRIS 5 MG SUBLINGUAL TABLET SUBLINGUAL by mouth twice a day ASENAPINE MALEATE 71204450333 No Longer Active Marvel MARROQUIN Active ACETAMINOPHEN 500 MG ORAL TABLET 2 Q 6 hr. PRN ACETAMINOPHEN 43138804469 No Longer Active Maljohn Ziglari LOPEZ Active ORPHENADRINE CITRATE ER 100 MG ORAL TABLET EXTENDED RELEASE 12 HOUR 1 every 12 hr. as needed ORPHENADRINE CITRATE 73323034635 No Longer Active Alina Castaneda MD PhD Active NIACIN ER 500 MG ORAL TABLET EXTENDED RELEASE 2 qHS NIACIN 82249184978 No Longer Active Alina Castaneda MD PhD Active AMOXICILLIN 500 MG ORAL CAPSULE 2 po BID x 10 days AMOXICILLIN 66847060708 No Longer Active Alina Castaneda MD PhD Active HYDROCODONE-ACETAMINOPHEN 7.5-325 MG ORAL TABLET 1 four times a day as needed for pain HYDROCODONE-ACETAMINOPHEN 58127751782 No Longer Active Alina Castaneda MD PhD Active DOXEPIN HCL 10 MG ORAL CAPSULE Take 1 tablet by mouth daily DOXEPIN HCL 58849083045 No Longer Active Salina Han A Active NAVANE 10 MG CAPS 1/2 tablet twice a day THIOTHIXENE No Longer Active Salina ROBBINSA Active CYCLOBENZAPRINE HCL 10 MG ORAL TABLET 1/2 tablet by mouth every 8 hours as needed for muscle spasms CYCLOBENZAPRINE HCL 19148019178 No Longer Active Alina Castaneda MD PhD Active BACTROBAN 2 % EXTERNAL CREAM apply to ear and nose twice daily MUPIROCIN CALCIUM 64866981569 No Longer Active Alina Castaneda MD PhD Active HYDROCODONE-ACETAMINOPHEN 5-325 MG ORAL TABLET take one tablet by mouth every four hours as needed for pain HYDROCODONE-ACETAMINOPHEN 70934139749 No Longer Active Alina Castaneda MD PhD Active ZYPREXA 5 MG ORAL TABLET take one tablet by mouth every evening OLANZAPINE 55461162778 No Longer Active Alina Castaneda MD PhD Active ALBUTEROL SULFATE (2.5 MG/3ML) 0.083% INHALATION NEBULIZATION SOLUTION one vial per nebulizer TID and PRN cough/soa ALBUTEROL SULFATE 96762189549 No Longer Active Alina Castaneda MD PhD Active GUAIFENESIN ER 600 MG ORAL TABLET EXTENDED RELEASE 12 HOUR 1 tablet by mouth twice daily if needed for cough GUAIFENESIN 54826562689 No Longer Active Marvel MARROQUIN Active AZITHROMYCIN 500 MG INTRAVENOUS SOLUTION RECONSTITUTED 1 po q day AZITHROMYCIN 75804329324 No Longer Active Alina Castaneda MD PhD Active PROMETHAZINE-CODEINE 6.25-10 MG/5ML ORAL SYRUP 1 tsp po q 6 hours prn cough PROMETHAZINE-CODEINE 50822766139 No Longer Active Alina Castaneda MD PhD Active CEFDINIR 300 MG ORAL CAPSULE by mouth twice a day CEFDINIR 19850844155 No Longer Active Alina Castaneda MD PhD Active METFORMIN HCL ER 500 MG ORAL TABLET EXTENDED RELEASE 24 HOUR Take 3 tablets by mouth everyday METFORMIN HCL 99033650734 No Longer Active Alina Castaneda MD PhD Active LEVEMIR 100 UNIT/ML SUBCUTANEOUS SOLUTION 90 units SQ qHS INSULIN DETEMIR 75160225093 No Longer Active Marvel MARROQUIN Active TOPROL XL 100 MG ORAL TABLET EXTENDED RELEASE 24 HOUR 1 @ HS METOPROLOL SUCCINATE 36981130059 No Longer Active Marvel MARROQUIN Active ALLOPURINOL 300 MG ORAL TABLET Take one by mouth daily ALLOPURINOL 55578251670 Active Mima Erazo HUMANITIES INSTRUCTOR Active ZYPREXA 10 MG ORAL TABLET Take one by mouth daily OLANZAPINE 99055040799 No Longer Active Alina Castaneda MD PhD Active NOVOLOG 100 UNIT/ML SUBCUTANEOUS SOLUTION 40 units with every meal INSULIN ASPART 36947461557 No Longer Active Alina Castaneda MD PhD Active VERAPAMIL HCL ER 120 MG ORAL TABLET EXTENDED RELEASE 1 qPM 09/08 VERAPAMIL HCL 95458201629 No Longer Active Salina ROJAS Active ZYPREXA 15 MG ORAL TABLET Take 1 tablet by mouth daily OLANZAPINE 33680281410 No Longer Active Marvel MARROQUIN Active ALBUTEROL SULFATE (2.5 MG/3ML) 0.083% INHALATION NEBULIZATION SOLUTION 1 neb tid and prn cough ALBUTEROL SULFATE 18856369188 No Longer Active Alina Castaneda MD PhD Active LANTUS 100 UNIT/ML SUBCUTANEOUS SOLUTION 60 units sq q hs INSULIN GLARGINE 06364530720 No Longer Active CRYSTAL Suarez Active ALBUTEROL SULFATE (2.5 MG/3ML) 0.083% INHALATION NEBULIZATION SOLUTION 1 neb tid and prn cough ALBUTEROL SULFATE (2.5 MG/3ML) 0.083% INHALATION NEBULIZATION SOLUTION 802590 ALBUTEROL SULFATE Inactive ZYPREXA 15 MG ORAL TABLET Take 1 tablet by mouth daily ZYPREXA 15 MG ORAL TABLET 663276 OLANZAPINE Inactive VERAPAMIL HCL ER 120 MG ORAL TABLET EXTENDED RELEASE 1 qPM 09/08 VERAPAMIL HCL ER 120 MG ORAL TABLET EXTENDED RELEASE VERAPAMIL HCL Inactive ZYPREXA 10 MG ORAL TABLET Take one by mouth daily ZYPREXA 10 MG ORAL TABLET 713270 OLANZAPINE Inactive TOPROL XL 100 MG ORAL TABLET EXTENDED RELEASE 24 HOUR 1 @ HS TOPROL XL 100 MG ORAL TABLET EXTENDED RELEASE 24 HOUR METOPROLOL SUCCINATE Inactive LEVEMIR 100 UNIT/ML SUBCUTANEOUS SOLUTION 90 units SQ qHS LEVEMIR 100 UNIT/ML SUBCUTANEOUS SOLUTION INSULIN DETEMIR Inactive PROMETHAZINE-CODEINE 6.25-10 MG/5ML ORAL SYRUP 1 tsp po q 6 hours prn cough PROMETHAZINE-CODEINE 6.25-10 MG/5ML ORAL SYRUP 983187 PROMETHAZINE-CODEINE Inactive GUAIFENESIN ER 600 MG ORAL TABLET EXTENDED RELEASE 12 HOUR 1 tablet by mouth twice daily if needed for cough GUAIFENESIN ER 600 MG ORAL TABLET EXTENDED RELEASE 12 HOUR GUAIFENESIN Inactive ALBUTEROL SULFATE (2.5 MG/3ML) 0.083% INHALATION NEBULIZATION SOLUTION one vial per nebulizer TID and PRN cough/soa ALBUTEROL SULFATE (2.5 MG/3ML) 0.083% INHALATION NEBULIZATION SOLUTION 569316 ALBUTEROL SULFATE Inactive ZYPREXA 5 MG ORAL TABLET take one tablet by mouth every evening ZYPREXA 5 MG ORAL TABLET 951795 OLANZAPINE Inactive HYDROCODONE-ACETAMINOPHEN 5-325 MG ORAL TABLET take one tablet by mouth every four hours as needed for pain HYDROCODONE-ACETAMINOPHEN 5-325 MG ORAL TABLET 519516 HYDROCODONE-ACETAMINOPHEN Inactive BACTROBAN 2 % EXTERNAL CREAM apply to ear and nose twice daily BACTROBAN 2 % EXTERNAL CREAM 273954 MUPIROCIN CALCIUM Inactive CYCLOBENZAPRINE HCL 10 MG ORAL TABLET 1/2 tablet by mouth every 8 hours as needed for muscle spasms CYCLOBENZAPRINE HCL 10 MG ORAL TABLET 329990 CYCLOBENZAPRINE HCL Inactive NAVANE 10 MG CAPS 1/2 tablet twice a day NAVANE 10 MG CAPS THIOTHIXENE Inactive DOXEPIN HCL 10 MG ORAL CAPSULE Take 1 tablet by mouth daily DOXEPIN HCL 10 MG ORAL CAPSULE 2748209 DOXEPIN HCL Inactive HYDROCODONE-ACETAMINOPHEN 7.5-325 MG ORAL TABLET 1 four times a day as needed for pain HYDROCODONE-ACETAMINOPHEN 7.5-325 MG ORAL TABLET 352733 HYDROCODONE-ACETAMINOPHEN Inactive NIACIN ER 500 MG ORAL [...] hr. PRN ACETAMINOPHEN 500 MG ORAL TABLET 731430 ACETAMINOPHEN Inactive SAPHRIS 5 MG SUBLINGUAL TABLET SUBLINGUAL by mouth twice a day SAPHRIS 5 MG SUBLINGUAL TABLET SUBLINGUAL ASENAPINE MALEATE Inactive NIACIN ER 500 MG ORAL TABLET EXTENDED RELEASE 4 qHS (for triglycerides) 01/13 NIACIN ER 500 MG ORAL TABLET EXTENDED RELEASE NIACIN Inactive IBUPROFEN 200 MG ORAL TABLET 1 Q 6 hr. PRN IBUPROFEN 200 MG ORAL TABLET 563480 IBUPROFEN Inactive FLUTICASONE PROPIONATE 50 MCG/ACT NASAL SUSPENSION 2 sprays each nostril qDay x 30 days FLUTICASONE PROPIONATE 50 MCG/ACT NASAL SUSPENSION 2058711 FLUTICASONE PROPIONATE Inactive EQL TRUETEST TEST IN [...] at HS ZYPREXA 7.5 MG ORAL TABLET 936852 OLANZAPINE Inactive THIOTHIXENE 5 MG ORAL CAPSULE by mouth twice a day THIOTHIXENE 5 MG ORAL CAPSULE 034498 THIOTHIXENE Inactive UROXATRAL 10 MG ORAL TABLET EXTENDED RELEASE 24 HOUR Take 1 tablet by mouth daily UROXATRAL 10 MG ORAL TABLET EXTENDED RELEASE 24 HOUR ALFUZOSIN HCL Inactive ACYCLOVIR 400 MG ORAL TABLET 1 pill three times daily x 5 days, for cold sore outbreak ACYCLOVIR 400 MG ORAL TABLET 586082 ACYCLOVIR Inactive TRUETEST TEST IN VITRO STRIP check sugars 4x/day TRUETEST TEST IN VITRO STRIP GLUCOSE BLOOD Inactive HUMALOG 100 UNIT/ML SUBCUTANEOUS SOLUTION Take 20 units with breakfast, 10u with lunch and suppetr. HUMALOG 100 UNIT/ML SUBCUTANEOUS SOLUTION INSULIN LISPRO (HUMAN) Inactive CYCLOBENZAPRINE HCL 10 MG ORAL TABLET 1 tablet by mouth three times daily, scheduled CYCLOBENZAPRINE HCL 10 MG ORAL TABLET 718898 CYCLOBENZAPRINE HCL Inactive ACCU-CHEK ROSA IN VITRO STRIP use strips with device to check blood sugars 3 times daily ACCU-CHEK ROSA IN VITRO STRIP GLUCOSE BLOOD Inactive ACCU-CHEK ROSA DEVICE Use device to check blood sugars ACCU-CHEK ROSA DEVICE BLOOD GLUCOSE MONITORING SUPPL Inactive FLUVOXAMINE MALEATE 100 MG ORAL TABLET Take 1/2 tab at noon 03/04 FLUVOXAMINE MALEATE 100 MG ORAL TABLET 524144 FLUVOXAMINE MALEATE Inactive FLUVOXAMINE MALEATE 100 MG ORAL TABLET Take one (1) tablet by mouth am, 1/2 at noon FLUVOXAMINE MALEATE 100 MG ORAL TABLET 740464 FLUVOXAMINE MALEATE Inactive BACTROBAN 2 % EXTERNAL CREAM Apply to affected area BID for up to 10 days BACTROBAN 2 % EXTERNAL CREAM 344367 MUPIROCIN CALCIUM Inactive NOVOFINE 32G X 6 MM use one four times per day NOVOFINE 32G X 6 MM INSULIN PEN NEEDLE Inactive TRAZODONE HCL 100 MG ORAL TABLET 1 tab by mouth for sleep TRAZODONE HCL 100 MG ORAL TABLET 468434 TRAZODONE HCL Inactive LOVAZA 1 GM ORAL CAPSULE 4 daily (for triglycerides) LOVAZA 1 GM ORAL CAPSULE 506781 [id number] ETHYL ESTERS Inactive METFORMIN HCL ER 500 [...] bladder TOLTERODINE TARTRATE 2 MG ORAL TABLET 699804 TOLTERODINE TARTRATE Inactive COLACE 100 MG ORAL CAPSULE 1 pill by mouth twice daily, for constipation 2014 COLACE 100 MG ORAL CAPSULE 6310750 DOCUSATE SODIUM Inactive LOMOTIL 2.5-0.025 MG ORAL TABLET take 1-2 tabs PO after each stool, no more than 8 in 24 hours LOMOTIL 2.5-0.025 MG ORAL TABLET 4362626 DIPHENOXYLATE-ATROPINE Inactive ZOFRAN 4 MG ORAL TABLET 1 po q4hr PRN Nausea ZOFRAN 4 MG ORAL TABLET 404583 ONDANSETRON HCL Inactive HYDROCODONE-ACETAMINOPHEN 5-325 MG ORAL TABLET 2 tabs by mouth three times daily for pain HYDROCODONE-ACETAMINOPHEN 5-325 MG ORAL TABLET 367605 HYDROCODONE-ACETAMINOPHEN Inactive ZOLPIDEM TARTRATE 10 MG ORAL TABLET take at bedtime ZOLPIDEM TARTRATE 10 MG ORAL TABLET 335921 ZOLPIDEM TARTRATE Inactive LISINOPRIL 20 MG ORAL TABLET 1 BID LISINOPRIL 20 MG ORAL TABLET 301260 LISINOPRIL Inactive TRAVATAN Z 0.004 % OPHTHALMIC SOLUTION 1 gtt each eye daily TRAVATAN Z 0.004 % OPHTHALMIC SOLUTION TRAVOPROST Inactive LATUDA 60 MG ORAL TABLET Take one by mouth daily LATUDA 60 MG ORAL TABLET LURASIDONE HCL Inactive FLUVOXAMINE MALEATE 50 MG ORAL TABLET 1 tab by mouth daily 04/01 FLUVOXAMINE MALEATE 50 MG ORAL TABLET 864963 FLUVOXAMINE MALEATE Inactive LEVEMIR FLEXTOUCH 100 UNIT/ML [...] 30G 3 a day TRUEPLUS LANCETS 30G [id number] LANCETS Inactive AMITIZA 24 MCG ORAL CAPSULE [...] noon FLUVOXAMINE MALEATE 100 MG ORAL TABLET 416364 FLUVOXAMINE MALEATE Inactive FLONASE ALLERGY RELIEF 50 MCG/ACT NASAL SUSPENSION One spray each nostril BID x 1 week then daily FLONASE ALLERGY RELIEF 50 MCG/ACT NASAL SUSPENSION 5022364 FLUTICASONE PROPIONATE Inactive IMODIUM A-D 2 MG ORAL TABLET 1 tab QID as needed IMODIUM A-D 2 MG ORAL TABLET 940026 LOPERAMIDE HCL Inactive MYLANTA GAS RELIEF MAXIMUM STR 125 MG ORAL CAPSULE 30cc every 4 hours prn MYLANTA GAS RELIEF MAXIMUM STR 125 MG ORAL CAPSULE SIMETHICONE Inactive TRUEPLUS LANCETS 30G 3x a day TRUEPLUS LANCETS 30G [id number] LANCETS Inactive TRUE METRIX BLOOD GLUCOSE TEST [...] headaches TRAZODONE HCL 100 MG ORAL TABLET 077061 TRAZODONE HCL Inactive TYLENOL 8 HOUR 650 [...] evening TAMSULOSIN HCL 0.4 MG ORAL CAPSULE [id number] TAMSULOSIN HCL Inactive [facility] MELATONIN 3 MG ORAL TABLET give 1 tab by mouth at HS [facility] MELATONIN 3 MG ORAL TABLET 855877 MELATONIN Inactive SEROQUEL 100 MG ORAL TABLET 1 tab daily SEROQUEL 100 MG ORAL TABLET 625780 QUETIAPINE FUMARATE Inactive AMARYL 2 MG ORAL TABLET give 2.5 tabs PO daily AMARYL 2 MG ORAL TABLET 137264 GLIMEPIRIDE Inactive SEROQUEL 25 MG ORAL TABLET Take two tabs by mouth in the morning, take 4 tablets at night SEROQUEL 25 MG ORAL TABLET 982531 QUETIAPINE FUMARATE Inactive CEFDINIR 300 MG ORAL CAPSULE by mouth twice a day CEFDINIR 300 MG ORAL CAPSULE 481203 CEFDINIR Inactive AZITHROMYCIN 500 MG INTRAVENOUS SOLUTION RECONSTITUTED 1 po q day AZITHROMYCIN 500 MG INTRAVENOUS SOLUTION RECONSTITUTED [id number] AZITHROMYCIN Inactive AMOXICILLIN 500 MG ORAL CAPSULE 2 po BID x 10 days AMOXICILLIN 500 MG ORAL CAPSULE 217442 AMOXICILLIN Inactive PENICILLIN V POTASSIUM 500 MG ORAL TABLET 1 pill by mouth three times daily PENICILLIN V POTASSIUM 500 MG ORAL TABLET 845212 PENICILLIN V POTASSIUM Inactive KEFLEX 500 MG ORAL CAPSULE 1 po BID x 7 days KEFLEX 500 MG ORAL CAPSULE 236548 CEPHALEXIN Inactive Immunizations Vaccine Administration Date Value [...] Fluvirin, Fluarix, Agriflu(>=18 yo)) Fluzone (>3 yrs.) [BVC968] Influenza, seasonal, injectable pneumococcal immunization administered Pneumovax [...] ... - Chemistry sodium, serum 135 mmol/L 502-006 1549/08/22 carbon dioxide, venous blood 28.4 mmol/L 21.0-32.0 [...] mg/g {creat} 0-29 cholesterol, serum 263 mg/dL 655-931 3096/08/22 triglyceride, serum, fasting 1312 mg/dL 30-200 HDL [...] 80 mg/L 0-19 Office Visit: [facility] from [facility] - Lab PSA (prostate specific antigent), recommendation and action PSA ordered Encounters Code Encounter Date Provider Facility CPT-55954 [id number] Vst-Est Level III 11:00:25 CDT Shavonne Feliciano PA-C [facility]-01698 Level 3 Est. Patient 09:12:14 [employer] MACHINE Mima Erazo [facility]-09951 Level 3 Est. Patient 16:52:51 CDT Vanessa Hickey MD [facility]-94533 Level 3 Est. Patient 17:40:16 CDT Mima Erazo [facility] CPT-15985 Level 3 Est. Patient 14:34:52 CDT Vanessa Hickey MD [facility]-47932 Level 3 Est. Patient 16:27:51 CDT Mima Erazo [facility] CPT-05197 Level 3 Est. Patient 14:39:00 [employer] MACHINE Vanessa Hickey MD [facility] CPT-88855 Level 2 Est. Patient 18:43:34 CDT Mima Erazo [facility] CPT-70987 Level 3 Est. Patient 16:22:09 CDT Cherelle Avila [facility] CPT-30628 Level 4 Est. Patient 17:55:14 CDT Mima Erazo [facility] CPT-11986 Level 2 Est. Patient 17:13:21 CDT [facility] CPT-03885 Level 3 Est. Patient 14:46:15 CDT Vanessa Hickey MD [facility] CPT-33987 Level 3 Est. Patient 09:34:56 CDT Alina Castaneda MD [facility]-86784 Level 3 Est. Patient 21:40:19 CDT Mima Erazo [facility] CPT-14652 Level 3 Est. Patient 09:26:40 CDT Marvel Charles [facility]-93844 Level 3 Est. Patient 12:36:43 CDT Vanessa Hickey MD [facility]-98649 Level 3 Est. Patient 12:57:49 CDT Vanessa Hickey MD [facility]-13513 Level 3 Est. Patient 00:28:25 CDT Alina Castaneda MD [facility]-63764 Level 2 Est. Patient 12:52:14 CDT Alina Castaneda MD [facility]-14237 Level 3 Est. Patient 11:51:18 [employer] MACHINE Alina Castaneda MD [facility] [place]-62762 Level 3 Est. Patient 10:09:22 [employer] MACHINE Alina Castaneda MD [facility]-18455 Level 3 Est. Patient 14:36:26 [employer] MACHINE Marvel Charles [facility]-97720 Level 3 Est. Patient 13:34:47 [employer] MACHINE Alina Castaneda MD [facility]-21718 Level 3 Est. Patient 19:52:08 [employer] MACHINE Alina Castaneda MD [facility] CPT-88968 Level 3 Est. Patient 10:01:51 [employer] MACHINE Marvel Charles [facility]-25200 Level 3 Est. Patient 21:54:06 CDT Vanessa Hickey MD [facility]-50625 Level 3 Est. Patient 08:54:46 CDT Alina Castaneda MD [facility] [place]-35223 Level 3 Est. Patient 09:32:11 CDT Marvel Thurstonestela [facility]-17899 Level 3 Est. Patient 12:02:49 CDT Alina Castaneda MD [facility] [place]-64366 Level 3 Est. Patient 19:17:33 CDT Alina Castaneda MD [facility]03644 Level 3 Est. Patient 13:19:10 CDT Marvel Gurdeepajayestela [facility]-66717 Level 3 Est. Patient 08:20:05 CDT Alina Castaneda MD [facility]49445 Level 3 Est. Patient 15:17:18 CDT Alina Castaneda MD [facility] [place]-18012 Level 3 Est. Patient 14:25:36 [employer] MACHINE [facility] Est[facility] Patient 10:09:15 [employer] MACHINE [facility] Level 3 Est. Patient 21:28:43 CDT Alina Castaneda MD [facility] [place]-04232 Level 3 Est. Patient 15:20:11 CDT Marvel Araceli [facility]-08980 Level 4 Est. Patient 19:08:12 CDT Alina Castaneda [facility]41588 Level 3 Est. Patient 15:06:39 CDT Marvel Charles [facility]-25280 Level 4 Est. Patient 17:48:15 CDT Alina Castaneda MD [facility] [place]-39121 Level 3 Est. Patient 14:53:49 CDT Alina Castaneda MD PhD [facility]37343 Level 3 Est. Patient 09:35:16 CDT Alina Castaneda MD [facility] [place]-24487 Level 3 Est. Patient 12:23:22 CDT Alina Castaneda MD [facility]-98297 Level 3 Est. Patient 16:19:15 CDT Alina Castaneda MD [facility]-95368 Level 3 Est. Patient 21:39:56 [employer] MACHINE Alina Castaneda MD [facility]-22417 Level 4 Est. Patient 14:12:56 [employer] MACHINE Alina Castaneda MD [facility] [place]-11328 Level 2 Est. Patient 15:34:57 [employer] MACHINE Alina Castaneda MD [facility] [place]-61399 Level 3 Est. Patient 12:17:04 [employer] MACHINE Alina Castaneda MD [facility] [place]-90326 Level 3 Est. Patient 09:18:18 [employer] MACHINE Marvel Charles [facility]-45393 Level 2 Est. Patient 21:50:24 CDT Alina Castaneda MD [facility] [place]-59219 Level 3 Est. Patient 09:17:28 CDT Marvel Charles [facility]-12187 Level 4 Est. Patient 18:54:02 CDT Alina Castaneda MD [facility] [place]-00191 Level 3 Est. Patient 10:47:10 CDT Alina Castaneda MD [facility] [place]-83741 Level 3 Est. Patient 09:22:20 CDT Marvel Charles [facility]-55813 Level 3 Est. Patient 16:39:43 [facility]-20709 Level 3 Est. Patient 16:05:16 CDT Alian Castaneda MD [facility] CPT-96730 Level 3 Est. Patient 00:29:15 CDT Alina Castaneda MD [facility] CPT-92412 Level 3 Est. Patient 10:49:22 [employer] MACHINE Marvel Thurstonestela [facility] CPT-44411 Level 3 Est. Patient 21:30:19 [employer] MACHINE Alina Castaneda MD [facility] CPT-91383 Level 4 Est. Patient 17:04:11 L[employer] MACHINE [facility]84667 Level 3 Est. Patient 15:34:11 L[employer] MACHINE [facility] CPT-58315 Level 2 Est. Patient 12:51:58 [employer] MACHINE Alina Castaneda MD [facility] CPT-20795 Level 3 Est. Patient 13:20:01 [employer] MACHINE Alina Castaneda MD [facility] CPT-42828 Level 3 Est. Patient 09:23:35 CDT Alina Castaneda MD [facility] Procedures Code Procedure Name Date Entry Date Standard Description CPT-G0439 [facility] Annual Wellness Exam 15:49:52 [employer] MACHINE CPT-96772 Level 3 Shelter 13:20:19 CDT CPT-TCMM Transitional Care Mgmt-Moderate 12:32:19 CDT CPT-73363 Level 2 Shelter 09:01:11 CDT CPT-01553 HGBA1C - LAB USE ONLY 09:30:27 [employer] MACHINE CPT-79813 BMP - LAB USE ONLY 09:30:27 [employer] MACHINE CPT-70576 Venipuncture Draw Fee 09:30:26 [employer] MACHINE CPT-TCMM Transitional Care Mgmt-Moderate 10:25:31 CDT CPT-61129 Bladder Scan 14:34:53 CDT CPT-28877 Bladder Scan 14:39:01 [employer] MACHINE CPT-TCMM Transitional Care Mgmt-Moderate 10:30:19 [employer] MACHINE CPT-21475 Bladder Scan 12:36:44 CDT CPT-49148 Bladder Scan 21:54:06 CDT CPT-G0008 Administration of Influenza Virus Vaccine 13:05:26 CDT CPT-48097 Fluzone Quadrivalent Intramuscular Suspension 0.5 ML 13: 05:26 CDT CPT-49402 Administration single or combination vaccine inc oral 11 :49:51 CDT CPT-91700 Pneumovax 11:49:51 CDT CPT-62557 Ribs unilateral 2V 12:37:22 [employer] MACHINE CPT-83878 Chest 2V Frontal and Lat 17:15:26 CDT CPT-80146 Abx/Therapy Injection 18:54:02 CDT CPT-J0696 Rocephin 1000 mg (Ceftriaxone) 16:00:32 CDT CPT-26817 Chest 2V Frontal and Lat 15:26:45 CDT CPT-58824 Chest 2V Frontal and Lat 10:23:27 CDT CPT-58142 Venipuncture Draw Fee 10:11:00 CDT CPT-47869 Administration single or combination vaccine inc oral 11 :56:38 CDT CPT-54968 Influenza split virus > age 3 11:56:38 CDT CPT-39663 Venipuncture Draw Fee 08:49:54 [employer] MACHINE CPT-82258 EKG Trac and Interp 17:54:19 LENS [employer] MACHINE
--- OUTSIDE RECORDS SUMMARY | 2018-07-02 12:23 | XMS REPORT | Clinical Summary ---
Author Author Admin, MIKEE Organization [facility] [employer] Address Unknown Phone Unavailable Allergies, Adverse Reactions, 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 Erazo MEDICAL DRIVER Benign paroxysmal positional vertigo Vertigo, benign paroxysmal position 386.11 Inactive Mima rEazo MEDICAL DRIVER Benign paroxysmal positional vertigo High-risk sexual behavior [...] effect of cerebrovascular disease 438.13 Active Shavonne Najreaman PA-C Dysarthria as late effect of cerebrovascular [...] EXTENDED RELEASE 1 tab BID VERAPAMIL HCL 94811815417 Active Shavonne Feliciano PA-C Active SEROQUEL 25 MG ORAL TABLET Take two tabs by mouth in the morning, take 4 tablets at night QUETIAPINE FUMARATE 01301475701 No Longer Active Shavonne Feliciano PA-C Active EFFEXOR XR 150 MG ORAL CAPSULE EXTENDED RELEASE 24 HOUR 1 tab daily VENLAFAXINE HCL 17754673045 Active Shavonne Feliciano PA-C Active QUETIAPINE FUMARATE 25 MG ORAL TABLET 2 tabs BID QUETIAPINE FUMARATE 68596629343 Active Shavonne Feliciano PA-C Active QUETIAPINE FUMARATE 100 MG ORAL TABLET 1 tab PO at HS QUETIAPINE FUMARATE 26419231801 Active Shavonne Feliciano PA-C Active AMARYL 2 MG ORAL TABLET give 2.5 tabs PO daily GLIMEPIRIDE 62017193939 No Longer Active Shavonne Feliciano PA-C Active AMARYL 2 MG ORAL TABLET give 2 tabs PO in the morning GLIMEPIRIDE 16234822647 Active Shavonne Feliciano PA-C Active FENOFIBRATE 145 MG ORAL TABLET 1 tab PO in the morning FENOFIBRATE 07158427934 Active Shavonne Feliciano PA-C Active SEROQUEL 100 MG ORAL TABLET 1 tab daily QUETIAPINE FUMARATE 96233991429 No Longer Active Shavonne Feliciano PA-C Active [facility] MELATONIN 3 MG ORAL TABLET give 1 tab by mouth at HS MELATONIN 00509545616 No Longer Active Gabrielle Marquez MA Active NOVOLOG FLEXPEN 100 UNIT/ML SUBCUTANEOUS SOLUTION PEN-INJECTOR sliding scale INSULIN ASPART 60196917113 Active Gabrielle Marquez MA Active METFORMIN HCL 1000 MG ORAL TABLET 1 tab by mouth BID METFORMIN HCL 77664240429 Active Gabrielle Marquez MA Active [facility] MELATONIN 3 MG ORAL TABLET 1 tab nightly MELATONIN 56981836663 Active Gabrielle Marquez MA Active TAMSULOSIN HCL 0.4 MG ORAL CAPSULE give 2 capsules PO each evening TAMSULOSIN HCL 12140534766 No Longer Active Gabrielle Marquez MA Active VITAMIN D 2000 UNIT ORAL CAPSULE Take one by mouth daily CHOLECALCIFEROL 00239588194 No Longer Active Gabrielle Marquez MA Active LATUDA 40 MG ORAL TABLET 1.5 tab by mouth in the afternoon LURASIDONE HCL 39337737452 Active Gabrielle Marquez MA Active LEVEMIR 100 UNIT/ML SUBCUTANEOUS SOLUTION 10 u at bedtime INSULIN DETEMIR 19834628783 Active Gabrielle Marquez MA Active TAMSULOSIN HCL 0.4 MG ORAL CAPSULE 2 every night for urine flow TAMSULOSIN HCL 83723176274 Active Gabrielle Marquez MA Active DIVALPROEX SODIUM 125 MG ORAL TABLET DELAYED RELEASE 1 tab each morning 02/17 DIVALPROEX SODIUM 26871802279 Active Gabrielle Marquez MA Active D 1000 TABLET 2 tab by mouth BID CHOLECALCIFEROL TABS 99798260428 Active Gabrielle Marquez MA Active ALIGN 4 MG ORAL CAPSULE 1 tab at hs PROBIOTIC PRODUCT 56312801689 Active Gabrielle Marquez MA Active CLONAZEPAM 1 MG ORAL TABLET 1 pill by mouth two times daily CLONAZEPAM 05523230363 Active Gabrielle Marquez MA Active OCEAN NASAL SPRAY SOLUTION 2 sprays in both nostrils every 8 hours as needed for dry mucous membranes SALINE SOLN 67493533313 Active Mason Loredo MD Active BETHANECHOL CHLORIDE 25 MG ORAL TABLET Take 1 tablet mouth four times a day BETHANECHOL CHLORIDE 15178124401 Active Mason Loredo MD Active [facility] LUBRICANT EYE DROPS 0.4-0.3 % OPHTHALMIC SOLUTION POLYETHYL GLYCOL-PROPYL GLYCOL 02293550944 No Longer Active Mason Loredo MD Active TYLENOL 8 HOUR 650 MG ORAL TABLET EXTENDED RELEASE 1 tab QID prn ACETAMINOPHEN 02016200748 No Longer Active Mason Loredo MD Active TOPAMAX 25 MG ORAL TABLET 1 tab BID PRN TOPIRAMATE 94497462864 Active Mason Loredo MD Active TIMOPTIC OCUDOSE 0.5 % OPHTHALMIC SOLUTION instill one drop into both eyes q12H TIMOLOL MALEATE 79941701864 Active Mason Loredo MD Active TRAZODONE HCL 100 MG ORAL TABLET 1 every night to prevent headaches TRAZODONE HCL 80962919520 No Longer Active Mason Loredo MD Active TRAVATAN Z 0.004 % OPHTHALMIC SOLUTION 1 drop each eye daily 2017 TRAVOPROST 96382129719 No Longer Active Mason Loredo MD Active LATUDA 60 MG ORAL TABLET 1 tab daily LURASIDONE HCL 97001588149 No Longer Active Mason Loredo MD Active MORPHINE SULFATE ER 30 MG ORAL TABLET EXTENDED RELEASE Take one capsule BID MORPHINE SULFATE 11891081638 No Longer Active Mason Loredo MD Active TRUE METRIX BLOOD GLUCOSE TEST IN VITRO STRIP Check blood sugars 3x/day. 2015 GLUCOSE BLOOD 61854093278 No Longer Active Mason Loredo MD Active TRUEPLUS LANCETS 30G 3x a day LANCETS 34029154029 No Longer Active Mason Loredo MD Active MYLANTA GAS RELIEF MAXIMUM STR 125 MG ORAL CAPSULE 30cc every 4 hours prn SIMETHICONE 23220161250 No Longer Active Mason Loredo MD Active IMODIUM A-D 2 MG ORAL TABLET 1 tab QID as needed LOPERAMIDE HCL 59096282085 No Longer Active Mason Loredo MD Active FLONASE ALLERGY RELIEF 50 MCG/ACT NASAL SUSPENSION One spray each nostril BID x 1 week then daily FLUTICASONE PROPIONATE 71691319119 No Longer Active Mason Loredo MD Active FLUVOXAMINE MALEATE 100 MG ORAL TABLET take one tab every AM et HS, and take 1 /2 tab at noon FLUVOXAMINE MALEATE 32684951527 No Longer Active Mason Loredo MD Active BD PEN NEEDLE MINI U/F 31G X 5 MM 4 a day INSULIN PEN NEEDLE 77967281912 No Longer Active Mason Loredo MD Active AMITIZA 24 MCG ORAL CAPSULE Take one capsule BID for constipation LUBIPROSTONE 59438679554 No Longer Active Mason Loredo MD Active TRUEPLUS LANCETS 30G 3 a day LANCETS 66615965613 No Longer Active Mason Loredo MD Active CORICIDIN HBP CONGESTION/COUGH 10-200 MG ORAL CAPSULE Take as directed on box as needed for cold/flu symptoms DEXTROMETHORPHAN- GUAIFENESIN 25344777148 No Longer Active Mason Loredo MD Active OMEGA-3 300 MG ORAL CAPSULE 4 caps by mouth daily OMEGA-3 FATTY ACIDS 33680534081 No Longer Active Mason Loredo MD Active HUMALOG KWIKPEN 100 UNIT/ML SUBCUTANEOUS SOLUTION PEN-INJECTOR sliding scale if needed INSULIN LISPRO (HUMAN) 09257256565 No Longer Active Mason Loredo MD Active TRUETEST TEST IN VITRO STRIP check blood sugars 3x/day GLUCOSE BLOOD 65114036279 No Longer Active Mason Loredo MD Active ALFUZOSIN HCL ER 10 MG ORAL TABLET EXTENDED RELEASE 24 HOUR 1 tablet daily ALFUZOSIN HCL 35824603388 No Longer Active Mason Loredo MD Active BD INSULIN SYRINGE 28G X 1/2" 1 ML 1 four times per day INSULIN SYRINGE-NEEDLE U-100 36471310046 No Longer Active Mason Loredo MD Active LEVEMIR FLEXTOUCH 100 UNIT/ML SUBCUTANEOUS SOLUTION PEN-INJECTOR 60 units SQ each evening, for diabetes INSULIN DETEMIR 48141016118 No Longer Active Mason Loredo MD Active LACTULOSE 20 GM/30ML ORAL SOLUTION give 30 Ml PO BID PRN LACTULOSE 35091340107 Active Mason Loredo MD Active COLACE 100 MG ORAL CAPSULE 1 tab BID PRN DOCUSATE SODIUM 41640390319 Active Mason Loredo MD Active LATANOPROST 0.005 % OPHTHALMIC SOLUTION instill 1 drop in both eyes at bed time LATANOPROST 31168487655 Active Mason Loredo MD Active MIRALAX ORAL POWDER 17g by mouth q12h, for constipation POLYETHYLENE GLYCOL 3350 75588368506 Active Mason Loredo MD Active IBUPROFEN 400 MG ORAL TABLET 1 tab Q6H PRN IBUPROFEN 78524899603 Active Mason Loredo MD Active FLUVOXAMINE MALEATE 50 MG ORAL TABLET 1 tab by mouth daily 04/01 FLUVOXAMINE MALEATE 99321629455 No Longer Active Mima Erazo APRN Active TRUE METRIX METER w/Device KIT Check blood sugars 3x/day BLOOD GLUCOSE MONITORING SUPPL 62074110943 Active Marvel Mackenzieglari CLAY MIXER Active LATUDA 60 MG ORAL TABLET Take one by mouth daily LURASIDONE HCL 48870778189 No Longer Active Mima Erazo APRN Active [facility] MILK OF MAGNESIA 400 MG/5ML ORAL SUSPENSION 30ml by mouth bid prn MAGNESIUM HYDROXIDE 25079492813 Active Mason Loredo MD Active TRAVATAN Z 0.004 % OPHTHALMIC SOLUTION 1 gtt each eye daily TRAVOPROST 24126072902 No Longer Active Mason Loredo MD Active LISINOPRIL 20 MG ORAL TABLET 1 BID LISINOPRIL 02534507546 No Longer Active Mason Loredo MD Active ZOLPIDEM TARTRATE 10 MG ORAL TABLET take at bedtime ZOLPIDEM TARTRATE 22000196065 No Longer Active Mason Loredo MD Active HYDROCODONE-ACETAMINOPHEN 5-325 MG ORAL TABLET 2 tabs by mouth three times daily for pain HYDROCODONE-ACETAMINOPHEN 54654825388 No Longer Active Mason Loredo MD Active ZOFRAN 4 MG ORAL TABLET 1 po q4hr PRN Nausea ONDANSETRON HCL 08402296242 No Longer Active Mason Loredo MD Active LOMOTIL 2.5-0.025 MG ORAL TABLET take 1-2 tabs PO after each stool, no more than 8 in 24 hours DIPHENOXYLATE-ATROPINE 71564524184 No Longer Active Mason Loredo MD Active COLACE 100 MG ORAL CAPSULE 1 pill by mouth twice daily, for constipation 2014 DOCUSATE SODIUM 66421377798 No Longer Active Mima Yokum MEDICAL DRIVER Active TOLTERODINE TARTRATE 2 MG ORAL TABLET 1 pill twice daily, for bladder TOLTERODINE TARTRATE 16614081153 No Longer Active Vanessa Hickey MD Active AMITIZA 24 MCG ORAL CAPSULE Take one capsule BID for constipation. LUBIPROSTONE 12267130357 No Longer Active Vanessa Hickey MD Active METOPROLOL SUCCINATE ER 100 MG ORAL TABLET EXTENDED RELEASE 24 HOUR 1 by mouth daily for blood pressure METOPROLOL SUCCINATE 40017685248 No Longer Active Grace Nelsonb RMA Active METFORMIN HCL ER 500 MG ORAL TABLET EXTENDED RELEASE 24 HOUR Take three tablets by mouth everyday METFORMIN HCL 87810685406 No Longer Active Grace Azam RMA Active LOVAZA 1 GM ORAL CAPSULE 4 daily (for triglycerides) [id number] ETHYL ESTERS 24361650230 No Longer Active Grace Azam RMA Active TRAZODONE HCL 100 MG ORAL TABLET 1 tab by mouth for sleep TRAZODONE HCL 42846844348 No Longer Active Grace Azam RMA Active NOVOFINE 32G X 6 MM use one four times per day INSULIN PEN NEEDLE 53365691637 No Longer Active Grace Azam RMA Active BACTROBAN 2 % EXTERNAL CREAM Apply to affected area BID for up to 10 days MUPIROCIN CALCIUM 92240843226 No Longer Active Grace Azam RMA Active KEFLEX 500 MG ORAL CAPSULE 1 po BID x 7 days CEPHALEXIN 64421338932 No Longer Active Cherelle Avila MEDICAL DRIVER Active FLUVOXAMINE MALEATE 100 MG ORAL TABLET Take one (1) tablet by mouth am, 1/2 at noon FLUVOXAMINE MALEATE 10845371999 No Longer Active Mima Erazo MEDICAL DRIVER Active FLUVOXAMINE MALEATE 100 MG ORAL TABLET Take 1/2 tab at noon 03/04 FLUVOXAMINE MALEATE 65053453914 No Longer Active Cherelle Avila MEDICAL DRIVER Active ACCU-CHEK ROSA DEVICE Use device to check blood sugars BLOOD GLUCOSE MONITORING SUPPL 52272725681 No Longer Active Brooksjohn MARROQUIN Active ACCU-CHEK ROSA IN VITRO STRIP use strips with device to check blood sugars 3 times daily GLUCOSE BLOOD 36756841995 No Longer Active Brooksjohn MARROQUIN Active VERAPAMIL HCL ER 180 MG ORAL TABLET EXTENDED RELEASE 1 pill by mouth twice daily, for migraine prevention VERAPAMIL HCL 80560837545 Active Mima Erazo MEDICAL DRIVER Active CYCLOBENZAPRINE HCL 10 MG ORAL TABLET 1 tablet by mouth three times daily, scheduled CYCLOBENZAPRINE HCL 74952198602 No Longer Active Alina Castaneda MD PhD Active HUMALOG 100 UNIT/ML SUBCUTANEOUS SOLUTION Take 20 units with breakfast, 10u with lunch and suppetr. INSULIN LISPRO (HUMAN) 64123890466 No Longer Active Alina Castaneda MD PhD Active TRUETEST TEST IN VITRO STRIP check sugars 4x/day GLUCOSE BLOOD 28036875813 No Longer Active Alina Castaneda MD PhD Active MORPHINE SULFATE 30 MG ORAL TABLET 1 pill by mouth twice daily, for pain 2013 MORPHINE SULFATE 04859990889 No Longer Active Mason Loredo MD Active ACYCLOVIR 400 MG ORAL TABLET 1 pill three times daily x 5 days, for cold sore outbreak ACYCLOVIR 86863586445 No Longer Active Alina Castaneda MD PhD Active PENICILLIN V POTASSIUM 500 MG ORAL TABLET 1 pill by mouth three times daily PENICILLIN V POTASSIUM 03751494650 No Longer Active Alina Castaneda MD PhD Active UROXATRAL 10 MG ORAL TABLET EXTENDED RELEASE 24 HOUR Take 1 tablet by mouth daily ALFUZOSIN HCL 57940108330 No Longer Active Alina Castaneda MD PhD Active THIOTHIXENE 5 MG ORAL CAPSULE by mouth twice a day THIOTHIXENE 86781782370 No Longer Active Alina Castaneda MD PhD Active ZYPREXA 7.5 MG ORAL TABLET 1 at HS OLANZAPINE 90203772384 No Longer Active Alina Castaneda MD PhD Active DETROL LA 4 MG ORAL CAPSULE EXTENDED RELEASE 24 HOUR Take 1 tablet by mouth daily TOLTERODINE TARTRATE 35813963721 No Longer Active Alina Castaneda MD PhD Active TERESE CONTOUR TEST IN VITRO STRIP monitor blood sugars 3x/day GLUCOSE BLOOD 33748967853 No Longer Active Alina Castaneda MD PhD Active EQL TRUETEST TEST IN VITRO STRIP Test blood sugar TID GLUCOSE BLOOD 25583562712 No Longer Active Alina Castaneda MD PhD Active FLUTICASONE PROPIONATE 50 MCG/ACT NASAL SUSPENSION 2 sprays each nostril qDay x 30 days FLUTICASONE PROPIONATE 86269116366 No Longer Active Alina Castaneda MD PhD Active IBUPROFEN 200 MG ORAL TABLET 1 Q 6 hr. PRN IBUPROFEN 61521282467 No Longer Active Alina Castaneda MD PhD Active NIACIN ER 500 MG ORAL TABLET EXTENDED RELEASE 4 qHS (for triglycerides) 01/13 NIACIN 80953313933 No Longer Active Alina Castaneda MD PhD Active SAPHRIS 5 MG SUBLINGUAL TABLET SUBLINGUAL by mouth twice a day ASENAPINE MALEATE 13574574608 No Longer Active Marvel MARROQUIN Active ACETAMINOPHEN 500 MG ORAL TABLET 2 Q 6 hr. PRN ACETAMINOPHEN 04062844786 No Longer Active Maljohn Ziglari LOPEZ Active ORPHENADRINE CITRATE ER 100 MG ORAL TABLET EXTENDED RELEASE 12 HOUR 1 every 12 hr. as needed ORPHENADRINE CITRATE 26788511413 No Longer Active Alina Castaneda MD PhD Active NIACIN ER 500 MG ORAL TABLET EXTENDED RELEASE 2 qHS NIACIN 01704150032 No Longer Active Alina Castaneda MD PhD Active AMOXICILLIN 500 MG ORAL CAPSULE 2 po BID x 10 days AMOXICILLIN 96670048511 No Longer Active Alina Castaneda MD PhD Active HYDROCODONE-ACETAMINOPHEN 7.5-325 MG ORAL TABLET 1 four times a day as needed for pain HYDROCODONE-ACETAMINOPHEN 61924145363 No Longer Active Alina Castaneda MD PhD Active DOXEPIN HCL 10 MG ORAL CAPSULE Take 1 tablet by mouth daily DOXEPIN HCL 17488356547 No Longer Active Salina Han A Active NAVANE 10 MG CAPS 1/2 tablet twice a day THIOTHIXENE No Longer Active Salina ROBBINSA Active CYCLOBENZAPRINE HCL 10 MG ORAL TABLET 1/2 tablet by mouth every 8 hours as needed for muscle spasms CYCLOBENZAPRINE HCL 49154228899 No Longer Active Alina Castaneda MD PhD Active BACTROBAN 2 % EXTERNAL CREAM apply to ear and nose twice daily MUPIROCIN CALCIUM 98556386498 No Longer Active Alina Castaneda MD PhD Active HYDROCODONE-ACETAMINOPHEN 5-325 MG ORAL TABLET take one tablet by mouth every four hours as needed for pain HYDROCODONE-ACETAMINOPHEN 23351350973 No Longer Active Alina Castaneda MD PhD Active ZYPREXA 5 MG ORAL TABLET take one tablet by mouth every evening OLANZAPINE 78028761017 No Longer Active Alina Castaneda MD PhD Active ALBUTEROL SULFATE (2.5 MG/3ML) 0.083% INHALATION NEBULIZATION SOLUTION one vial per nebulizer TID and PRN cough/soa ALBUTEROL SULFATE 72210638408 No Longer Active Alina Castaneda MD PhD Active GUAIFENESIN ER 600 MG ORAL TABLET EXTENDED RELEASE 12 HOUR 1 tablet by mouth twice daily if needed for cough GUAIFENESIN 07232695451 No Longer Active Marvel MARROQUIN Active AZITHROMYCIN 500 MG INTRAVENOUS SOLUTION RECONSTITUTED 1 po q day AZITHROMYCIN 06644639456 No Longer Active Alina Castaneda MD PhD Active PROMETHAZINE-CODEINE 6.25-10 MG/5ML ORAL SYRUP 1 tsp po q 6 hours prn cough PROMETHAZINE-CODEINE 86004386947 No Longer Active Alina Castaneda MD PhD Active CEFDINIR 300 MG ORAL CAPSULE by mouth twice a day CEFDINIR 14658440599 No Longer Active Alina Castaneda MD PhD Active METFORMIN HCL ER 500 MG ORAL TABLET EXTENDED RELEASE 24 HOUR Take 3 tablets by mouth everyday METFORMIN HCL 34601359151 No Longer Active Alina Castaneda MD PhD Active LEVEMIR 100 UNIT/ML SUBCUTANEOUS SOLUTION 90 units SQ qHS INSULIN DETEMIR 71910620351 No Longer Active Marvel MARROQUIN Active TOPROL XL 100 MG ORAL TABLET EXTENDED RELEASE 24 HOUR 1 @ HS METOPROLOL SUCCINATE 16138477153 No Longer Active Marvel MARROQUIN Active ALLOPURINOL 300 MG ORAL TABLET Take one by mouth daily ALLOPURINOL 35385456072 Active Mima Erazo MEDICAL DRIVER Active ZYPREXA 10 MG ORAL TABLET Take one by mouth daily OLANZAPINE 02305385640 No Longer Active Alina Castaneda MD PhD Active NOVOLOG 100 UNIT/ML SUBCUTANEOUS SOLUTION 40 units with every meal INSULIN ASPART 05657968326 No Longer Active Alina Castaneda MD PhD Active VERAPAMIL HCL ER 120 MG ORAL TABLET EXTENDED RELEASE 1 qPM 09/08 VERAPAMIL HCL 14017034788 No Longer Active Salina ROJAS Active ZYPREXA 15 MG ORAL TABLET Take 1 tablet by mouth daily OLANZAPINE 18814075746 No Longer Active Marvel MARROQUIN Active ALBUTEROL SULFATE (2.5 MG/3ML) 0.083% INHALATION NEBULIZATION SOLUTION 1 neb tid and prn cough ALBUTEROL SULFATE 73951653381 No Longer Active Alina Castaneda MD PhD Active LANTUS 100 UNIT/ML SUBCUTANEOUS SOLUTION 60 units sq q hs INSULIN GLARGINE 47031101681 No Longer Active CRYSTAL Suarez Active ALBUTEROL SULFATE (2.5 MG/3ML) 0.083% INHALATION NEBULIZATION SOLUTION 1 neb tid and prn cough ALBUTEROL SULFATE (2.5 MG/3ML) 0.083% INHALATION NEBULIZATION SOLUTION 987891 ALBUTEROL SULFATE Inactive ZYPREXA 15 MG ORAL TABLET Take 1 tablet by mouth daily ZYPREXA 15 MG ORAL TABLET 469728 OLANZAPINE Inactive VERAPAMIL HCL ER 120 MG ORAL TABLET EXTENDED RELEASE 1 qPM 09/08 VERAPAMIL HCL ER 120 MG ORAL TABLET EXTENDED RELEASE VERAPAMIL HCL Inactive ZYPREXA 10 MG ORAL TABLET Take one by mouth daily ZYPREXA 10 MG ORAL TABLET 136985 OLANZAPINE Inactive TOPROL XL 100 MG ORAL TABLET EXTENDED RELEASE 24 HOUR 1 @ HS TOPROL XL 100 MG ORAL TABLET EXTENDED RELEASE 24 HOUR METOPROLOL SUCCINATE Inactive LEVEMIR 100 UNIT/ML SUBCUTANEOUS SOLUTION 90 units SQ qHS LEVEMIR 100 UNIT/ML SUBCUTANEOUS SOLUTION INSULIN DETEMIR Inactive PROMETHAZINE-CODEINE 6.25-10 MG/5ML ORAL SYRUP 1 tsp po q 6 hours prn cough PROMETHAZINE-CODEINE 6.25-10 MG/5ML ORAL SYRUP 398374 PROMETHAZINE-CODEINE Inactive GUAIFENESIN ER 600 MG ORAL TABLET EXTENDED RELEASE 12 HOUR 1 tablet by mouth twice daily if needed for cough GUAIFENESIN ER 600 MG ORAL TABLET EXTENDED RELEASE 12 HOUR GUAIFENESIN Inactive ALBUTEROL SULFATE (2.5 MG/3ML) 0.083% INHALATION NEBULIZATION SOLUTION one vial per nebulizer TID and PRN cough/soa ALBUTEROL SULFATE (2.5 MG/3ML) 0.083% INHALATION NEBULIZATION SOLUTION 764945 ALBUTEROL SULFATE Inactive ZYPREXA 5 MG ORAL TABLET take one tablet by mouth every evening ZYPREXA 5 MG ORAL TABLET 082173 OLANZAPINE Inactive HYDROCODONE-ACETAMINOPHEN 5-325 MG ORAL TABLET take one tablet by mouth every four hours as needed for pain HYDROCODONE-ACETAMINOPHEN 5-325 MG ORAL TABLET 138242 HYDROCODONE-ACETAMINOPHEN Inactive BACTROBAN 2 % EXTERNAL CREAM apply to ear and nose twice daily BACTROBAN 2 % EXTERNAL CREAM 362381 MUPIROCIN CALCIUM Inactive CYCLOBENZAPRINE HCL 10 MG ORAL TABLET 1/2 tablet by mouth every 8 hours as needed for muscle spasms CYCLOBENZAPRINE HCL 10 MG ORAL TABLET 201847 CYCLOBENZAPRINE HCL Inactive NAVANE 10 MG CAPS 1/2 tablet twice a day NAVANE 10 MG CAPS THIOTHIXENE Inactive DOXEPIN HCL 10 MG ORAL CAPSULE Take 1 tablet by mouth daily DOXEPIN HCL 10 MG ORAL CAPSULE 2955692 DOXEPIN HCL Inactive HYDROCODONE-ACETAMINOPHEN 7.5-325 MG ORAL TABLET 1 four times a day as needed for pain HYDROCODONE-ACETAMINOPHEN 7.5-325 MG ORAL TABLET 022795 HYDROCODONE-ACETAMINOPHEN Inactive NIACIN ER 500 MG ORAL [...] hr. PRN ACETAMINOPHEN 500 MG ORAL TABLET 049775 ACETAMINOPHEN Inactive SAPHRIS 5 MG SUBLINGUAL TABLET SUBLINGUAL by mouth twice a day SAPHRIS 5 MG SUBLINGUAL TABLET SUBLINGUAL ASENAPINE MALEATE Inactive NIACIN ER 500 MG ORAL TABLET EXTENDED RELEASE 4 qHS (for triglycerides) 01/13 NIACIN ER 500 MG ORAL TABLET EXTENDED RELEASE NIACIN Inactive IBUPROFEN 200 MG ORAL TABLET 1 Q 6 hr. PRN IBUPROFEN 200 MG ORAL TABLET 390807 IBUPROFEN Inactive FLUTICASONE PROPIONATE 50 MCG/ACT NASAL SUSPENSION 2 sprays each nostril qDay x 30 days FLUTICASONE PROPIONATE 50 MCG/ACT NASAL SUSPENSION 3430805 FLUTICASONE PROPIONATE Inactive EQL TRUETEST TEST IN [...] at HS ZYPREXA 7.5 MG ORAL TABLET 974036 OLANZAPINE Inactive THIOTHIXENE 5 MG ORAL CAPSULE by mouth twice a day THIOTHIXENE 5 MG ORAL CAPSULE 755946 THIOTHIXENE Inactive UROXATRAL 10 MG ORAL TABLET EXTENDED RELEASE 24 HOUR Take 1 tablet by mouth daily UROXATRAL 10 MG ORAL TABLET EXTENDED RELEASE 24 HOUR ALFUZOSIN HCL Inactive ACYCLOVIR 400 MG ORAL TABLET 1 pill three times daily x 5 days, for cold sore outbreak ACYCLOVIR 400 MG ORAL TABLET 582378 ACYCLOVIR Inactive TRUETEST TEST IN VITRO STRIP check sugars 4x/day TRUETEST TEST IN VITRO STRIP GLUCOSE BLOOD Inactive HUMALOG 100 UNIT/ML SUBCUTANEOUS SOLUTION Take 20 units with breakfast, 10u with lunch and suppetr. HUMALOG 100 UNIT/ML SUBCUTANEOUS SOLUTION INSULIN LISPRO (HUMAN) Inactive CYCLOBENZAPRINE HCL 10 MG ORAL TABLET 1 tablet by mouth three times daily, scheduled CYCLOBENZAPRINE HCL 10 MG ORAL TABLET 314927 CYCLOBENZAPRINE HCL Inactive ACCU-CHEK ROSA IN VITRO STRIP use strips with device to check blood sugars 3 times daily ACCU-CHEK ROSA IN VITRO STRIP GLUCOSE BLOOD Inactive ACCU-CHEK ROSA DEVICE Use device to check blood sugars ACCU-CHEK ROSA DEVICE BLOOD GLUCOSE MONITORING SUPPL Inactive FLUVOXAMINE MALEATE 100 MG ORAL TABLET Take 1/2 tab at noon 03/04 FLUVOXAMINE MALEATE 100 MG ORAL TABLET 233344 FLUVOXAMINE MALEATE Inactive FLUVOXAMINE MALEATE 100 MG ORAL TABLET Take one (1) tablet by mouth am, 1/2 at noon FLUVOXAMINE MALEATE 100 MG ORAL TABLET 952975 FLUVOXAMINE MALEATE Inactive BACTROBAN 2 % EXTERNAL CREAM Apply to affected area BID for up to 10 days BACTROBAN 2 % EXTERNAL CREAM 672884 MUPIROCIN CALCIUM Inactive NOVOFINE 32G X 6 MM use one four times per day NOVOFINE 32G X 6 MM INSULIN PEN NEEDLE Inactive TRAZODONE HCL 100 MG ORAL TABLET 1 tab by mouth for sleep TRAZODONE HCL 100 MG ORAL TABLET 822430 TRAZODONE HCL Inactive LOVAZA 1 GM ORAL CAPSULE 4 daily (for triglycerides) LOVAZA 1 GM ORAL CAPSULE 891378 [id number]-[id number] ETHYL ESTERS Inactive METFORMIN HCL ER 500 [...] bladder TOLTERODINE TARTRATE 2 MG ORAL TABLET 482856 TOLTERODINE TARTRATE Inactive COLACE 100 MG ORAL CAPSULE 1 pill by mouth twice daily, for constipation 2014 COLACE 100 MG ORAL CAPSULE 1386955 DOCUSATE SODIUM Inactive LOMOTIL 2.5-0.025 MG ORAL TABLET take 1-2 tabs PO after each stool, no more than 8 in 24 hours LOMOTIL 2.5-0.025 MG ORAL TABLET 4127644 DIPHENOXYLATE-ATROPINE Inactive ZOFRAN 4 MG ORAL TABLET 1 po q4hr PRN Nausea ZOFRAN 4 MG ORAL TABLET 460068 ONDANSETRON HCL Inactive HYDROCODONE-ACETAMINOPHEN 5-325 MG ORAL TABLET 2 tabs by mouth three times daily for pain HYDROCODONE-ACETAMINOPHEN 5-325 MG ORAL TABLET 521786 HYDROCODONE-ACETAMINOPHEN Inactive ZOLPIDEM TARTRATE 10 MG ORAL TABLET take at bedtime ZOLPIDEM TARTRATE 10 MG ORAL TABLET 693454 ZOLPIDEM TARTRATE Inactive LISINOPRIL 20 MG ORAL TABLET 1 BID LISINOPRIL 20 MG ORAL TABLET 220322 LISINOPRIL Inactive TRAVATAN Z 0.004 % OPHTHALMIC SOLUTION 1 gtt each eye daily TRAVATAN Z 0.004 % OPHTHALMIC SOLUTION TRAVOPROST Inactive LATUDA 60 MG ORAL TABLET Take one by mouth daily LATUDA 60 MG ORAL TABLET LURASIDONE HCL Inactive FLUVOXAMINE MALEATE 50 MG ORAL TABLET 1 tab by mouth daily 04/01 FLUVOXAMINE MALEATE 50 MG ORAL TABLET 747693 FLUVOXAMINE MALEATE Inactive LEVEMIR FLEXTOUCH 100 UNIT/ML [...] 30G 3 a day TRUEPLUS LANCETS 30G [id number] LANCETS Inactive AMITIZA 24 MCG ORAL CAPSULE [...] noon FLUVOXAMINE MALEATE 100 MG ORAL TABLET 008518 FLUVOXAMINE MALEATE Inactive FLONASE ALLERGY RELIEF 50 MCG/ACT NASAL SUSPENSION One spray each nostril BID x 1 week then daily FLONASE ALLERGY RELIEF 50 MCG/ACT NASAL SUSPENSION 7682559 FLUTICASONE PROPIONATE Inactive IMODIUM A-D 2 MG ORAL TABLET 1 tab QID as needed IMODIUM A-D 2 MG ORAL TABLET 321877 LOPERAMIDE HCL Inactive MYLANTA GAS RELIEF MAXIMUM STR 125 MG ORAL CAPSULE 30cc every 4 hours prn MYLANTA GAS RELIEF MAXIMUM STR 125 MG ORAL CAPSULE SIMETHICONE Inactive TRUEPLUS LANCETS 30G 3x a day TRUEPLUS LANCETS 30G [id number] LANCETS Inactive TRUE METRIX BLOOD GLUCOSE TEST [...] headaches TRAZODONE HCL 100 MG ORAL TABLET 311561 TRAZODONE HCL Inactive TYLENOL 8 HOUR 650 [...] evening TAMSULOSIN HCL 0.4 MG ORAL CAPSULE 137063 TAMSULOSIN HCL Inactive [facility] MELATONIN 3 MG ORAL TABLET give 1 tab by mouth at HS [facility] MELATONIN 3 MG ORAL TABLET 185028 MELATONIN Inactive SEROQUEL 100 MG ORAL TABLET 1 tab daily SEROQUEL 100 MG ORAL TABLET 003256 QUETIAPINE FUMARATE Inactive AMARYL 2 MG ORAL TABLET give 2.5 tabs PO daily AMARYL 2 MG ORAL TABLET 140213 GLIMEPIRIDE Inactive SEROQUEL 25 MG ORAL TABLET Take two tabs by mouth in the morning, take 4 tablets at night SEROQUEL 25 MG ORAL TABLET 717613 QUETIAPINE FUMARATE Inactive CEFDINIR 300 MG ORAL CAPSULE by mouth twice a day CEFDINIR 300 MG ORAL CAPSULE 549249 CEFDINIR Inactive AZITHROMYCIN 500 MG INTRAVENOUS SOLUTION RECONSTITUTED 1 po q day AZITHROMYCIN 500 MG INTRAVENOUS SOLUTION RECONSTITUTED [id number] AZITHROMYCIN Inactive AMOXICILLIN 500 MG ORAL CAPSULE 2 po BID x 10 days AMOXICILLIN 500 MG ORAL CAPSULE 773094 AMOXICILLIN Inactive PENICILLIN V POTASSIUM 500 MG ORAL TABLET 1 pill by mouth three times daily PENICILLIN V POTASSIUM 500 MG ORAL TABLET 984772 PENICILLIN V POTASSIUM Inactive KEFLEX 500 MG ORAL CAPSULE 1 po BID x 7 days KEFLEX 500 MG ORAL CAPSULE 533012 CEPHALEXIN Inactive Immunizations Vaccine Administration Date Value [...] Fluvirin, Fluarix, Agriflu(>=18 yo)) Fluzone (>3 yrs.) [[id number]] Influenza, seasonal, injectable pneumococcal immunization administered Pneumovax [...] ... - Chemistry sodium, serum 135 mmol/L 747-115 1160/08/22 carbon dioxide, venous blood 28.4 mmol/L 21.0-32.0 [...] mg/g {creat} 0-29 cholesterol, serum 263 mg/dL [phone]/08/22 triglyceride, serum, fasting 1312 mg/dL 30-200 HDL [...] 80 mg/L 0-19 Office Visit: TCM from snf - Lab PSA (prostate specific antigent), recommendation and action PSA ordered Encounters Code Encounter Date Provider Facility CPT-94627 [id number] Vst-Est Level III 11:00:25 CDT Shavonne Feliciano PA-C [facility]-91646 Level 3 Est. Patient 09:12:14 DENTAL AMALGAM PROCESSOR Mima Erazo [facility]-40670 Level 3 Est. Patient 16:52:51 CDT Vanessa Hickey MD [facility]-12978 Level 3 Est. Patient 17:40:16 CDT Mima Erazo [facility] CPT-78782 Level 3 Est. Patient 14:34:52 CDT Vanessa Hickey MD [facility]-92532 Level 3 Est. Patient 16:27:51 CDT Mima Erazo [facility] CPT-10386 Level 3 Est. Patient 14:39:00 DENTAL AMALGAM PROCESSOR Vanessa Hickey MD [facility] CPT-03137 Level 2 Est. Patient 18:43:34 CDT Mima Erazo [facility] CPT-94326 Level 3 Est. Patient 16:22:09 CDT Cherelle Avila [facility] CPT-44840 Level 4 Est. Patient 17:55:14 CDT Mima Erazo [facility] CPT-01301 Level 2 Est. Patient 17:13:21 CDT Alina Castaneda MD PhD [facility] CPT-96338 Level 3 Est. Patient 14:46:15 CDT Vanessa Hickey MD [facility] CPT-06204 Level 3 Est. Patient 09:34:56 CDT Alina Castaneda MD [facility]-32321 Level 3 Est. Patient 21:40:19 CDT Mima Erazo AL[place]AN [facility] CPT-65440 Level 3 Est. Patient 09:26:40 CDT Marvel [facility]-06197 Level 3 Est. Patient 12:36:43 CDT Vanessa Hickey MD [facility]-83820 Level 3 Est. Patient 12:57:49 CDT Vanessa Hickey MD [facility]-00215 Level 3 Est. Patient 00:28:25 CDT Alina Castaneda MD [facility]-65398 Level 2 Est. Patient 12:52:14 CDT Alina Castaneda MD [facility]-56549 Level 3 Est. Patient 11:51:18 DENTAL AMALGAM PROCESSOR Alina Castaneda MD [facility]-01483 Level 3 Est. Patient 10:09:22 DENTAL AMALGAM PROCESSOR Alina Castaneda MD [facility]-81173 Level 3 Est. Patient 14:36:26 DENTAL AMALGAM PROCESSOR Marvel [facility]-20996 Level 3 Est. Patient 13:34:47 DENTAL AMALGAM PROCESSOR Alina Castaneda MD [facility]-58042 Level 3 Est. Patient 19:52:08 DENTAL AMALGAM PROCESSOR Alina Castaneda MD [facility] CPT-93607 Level 3 Est. Patient 10:01:51 DENTAL AMALGAM PROCESSOR Marvel [facility]-14901 Level 3 Est. Patient 21:54:06 CDT Vanessa Hickey MD [facility]-48233 Level 3 Est. Patient 08:54:46 CDT Alina Castaneda MD [facility]-11638 Level 3 Est. Patient 09:32:11 CDT Marvel Thurstonestela [facility]-99475 Level 3 Est. Patient 12:02:49 CDT Alina Castaneda MD [facility]-11549 Level 3 Est. Patient 19:17:33 CDT Alina Castaneda MD PhD [facility]30523 Level 3 Est. Patient 13:19:10 CDT Marvel Gurdeepajayestela [facility]-39700 Level 3 Est. Patient 08:20:05 CDT Alina Castaneda MD [facility]20170 Level 3 Est. Patient 15:17:18 CDT Alina Castaneda MD [facility]-96887 Level 3 Est. Patient 14:25:36 DENTAL AMALGAM PROCESSOR [facility]25928 Level 3 Est. Patient 10:09:15 DENTAL AMALGAM PROCESSOR [facility]47842 Level 3 Est. Patient 21:28:43 CDT Alina Castaneda MD [facility]-05764 Level 3 Est. Patient 15:20:11 CDT Marvel Araceli [facility]-27317 Level 4 Est. Patient 19:08:12 CDT Alina Castaneda MD [facility]77804 Level 3 Est. Patient 15:06:39 CDT Marvel [facility]-26121 Level 4 Est. Patient 17:48:15 CDT Alina Castaneda MD [facility]-23368 Level 3 Est. Patient 14:53:49 CDT Alina Castaneda MD PhD [facility]07847 Level 3 Est. Patient 09:35:16 CDT Alina Castaneda MD [facility]-36795 Level 3 Est. Patient 12:23:22 CDT Alina Castaneda MD [facility]-82554 Level 3 Est. Patient 16:19:15 CDT Alina Castaneda MD [facility]-57504 Level 3 Est. Patient 21:39:56 DENTAL AMALGAM PROCESSOR Alina Castaneda MD [facility]-70372 Level 4 Est. Patient 14:12:56 DENTAL AMALGAM PROCESSOR Alina Castaneda MD [facility]-74622 Level 2 Est. Patient 15:34:57 DENTAL AMALGAM PROCESSOR Alina Castaneda MD [facility]-19543 Level 3 Est. Patient 12:17:04 DENTAL AMALGAM PROCESSOR Alina Castaneda MD [facility]-72769 Level 3 Est. Patient 09:18:18 DENTAL AMALGAM PROCESSOR [facility]-93185 Level 2 Est. Patient 21:50:24 CDT Alina Castaneda MD [facility]-37145 Level 3 Est. Patient 09:17:28 CDT Marvel [facility]-07497 Level 4 Est. Patient 18:54:02 CDT Alina Castaneda MD [facility]-32334 Level 3 Est. Patient 10:47:10 CDT Alina Castaneda MD [facility]-08840 Level 3 Est. Patient 09:22:20 CDT Marvel [facility]-40185 Level 3 Est. Patient 16:39:43 CDT [facility]16794 Level 3 Est. Patient 16:05:16 CDT Alina Castaneda MD [facility] CPT-54288 Level 3 Est. Patient 00:29:15 CDT Alina Castaneda MD [facility] CPT-77195 Level 3 Est. Patient 10:49:22 DENTAL AMALGAM PROCESSOR Marvel Thurstonestela [facility] CPT-11720 Level 3 Est. Patient 21:30:19 DENTAL AMALGAM PROCESSOR Alina Castaneda MD [facility] CPT-69643 Level 4 Est. Patient 17:04:11 DENTAL AMALGAM PROCESSOR [facility]34366 Level 3 Est. Patient 15:34:11 DENTAL AMALGAM PROCESSOR [facility] CPT-43921 Level 2 Est. Patient 12:51:58 DENTAL AMALGAM PROCESSOR Alina Castaneda MD [facility] CPT-96984 Level 3 Est. Patient 13:20:01 DENTAL AMALGAM PROCESSOR Alina Castaneda MD [facility] CPT-21571 Level 3 Est. Patient 09:23:35 CDT Alina Castaneda MD [facility] Procedures Code Procedure Name Date Entry Date Standard Description CPT-G0439 [facility] Annual Wellness Exam 15:49:52 DENTAL AMALGAM PROCESSOR CPT-42433 Level 3 Senior Care 13:20:19 CDT CPT-TCMM Transitional Care Mgmt-Moderate 12:32:19 CDT CPT-76852 Level 2 Senior Care 09:01:11 CDT CPT-38432 HGBA1C - LAB USE ONLY 09:30:27 DENTAL AMALGAM PROCESSOR CPT-55315 BMP - LAB USE ONLY 09:30:27 DENTAL AMALGAM PROCESSOR CPT-32663 Venipuncture Draw Fee 09:30:26 DENTAL AMALGAM PROCESSOR CPT-TCMM Transitional Care Mgmt-Moderate 10:25:31 CDT CPT-51186 Bladder Scan 14:34:53 CDT CPT-01593 Bladder Scan 14:39:01 DENTAL AMALGAM PROCESSOR CPT-TCMM Transitional Care Mgmt-Moderate 10:30:19 DENTAL AMALGAM PROCESSOR CPT-18200 Bladder Scan 12:36:44 CDT CPT-41276 Bladder Scan 21:54:06 CDT CPT-G0008 Administration of Influenza Virus Vaccine 13:05:26 CDT CPT-25906 Fluzone Quadrivalent Intramuscular Suspension 0.5 ML 13: 05:26 CDT CPT-63801 Administration single or combination vaccine inc oral 11 :49:51 CDT CPT-13602 Pneumovax 11:49:51 CDT CPT-24972 Ribs unilateral 2V 12:37:22 DENTAL AMALGAM PROCESSOR CPT-51215 Chest 2V Frontal and Lat 17:15:26 CDT CPT-54213 Abx/Therapy Injection 18:54:02 CDT CPT-J0696 Rocephin 1000 mg (Ceftriaxone) 16:00:32 CDT CPT-17303 Chest 2V Frontal and Lat 15:26:45 CDT CPT-71058 Chest 2V Frontal and Lat 10:23:27 CDT CPT-78774 Venipuncture Draw Fee 10:11:00 CDT CPT-63136 Administration single or combination vaccine inc oral 11 :56:38 CDT CPT-14976 Influenza split virus > age 3 11:56:38 CDT CPT-20146 Venipuncture Draw Fee 08:49:54 DENTAL AMALGAM PROCESSOR CPT-10155 EKG Trac and Interp 17:54:19 DENTAL AMALGAM PROCESSOR
--- OUTSIDE RECORDS SUMMARY | 2018-07-02 12:25 | XMS REPORT | Clinical Summary ---
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 MALEATE 50 MG ORAL TABLET 328042 FLUVOXAMINE MALEATE Inactive LEVEMIR FLEXTOUCH 100 UNIT/ML [...] 30G 3 a day TRUEPLUS LANCETS 30G [id number] LANCETS Inactive AMITIZA 24 MCG ORAL CAPSULE [...] noon FLUVOXAMINE MALEATE 100 MG ORAL TABLET 839728 FLUVOXAMINE MALEATE Inactive FLONASE ALLERGY RELIEF 50 MCG/ACT NASAL SUSPENSION One spray each nostril BID x 1 week then daily FLONASE ALLERGY RELIEF 50 MCG/ACT NASAL SUSPENSION [id number] FLUTICASONE PROPIONATE Inactive IMODIUM A-D 2 MG ORAL TABLET 1 tab QID as needed IMODIUM A-D 2 MG ORAL TABLET 973940 LOPERAMIDE HCL Inactive MYLANTA GAS RELIEF MAXIMUM STR 125 MG ORAL CAPSULE 30cc every 4 hours prn MYLANTA GAS RELIEF MAXIMUM STR 125 MG ORAL CAPSULE SIMETHICONE Inactive TRUEPLUS LANCETS 30G 3x a day TRUEPLUS LANCETS 30G [id number] LANCETS Inactive TRUE METRIX BLOOD GLUCOSE TEST [...] headaches TRAZODONE HCL 100 MG ORAL TABLET 510239 TRAZODONE HCL Inactive TYLENOL 8 HOUR 650 [...] evening TAMSULOSIN HCL 0.4 MG ORAL CAPSULE 787600 TAMSULOSIN HCL Inactive [facility] MELATONIN 3 MG ORAL TABLET give 1 tab by mouth at HS [facility] MELATONIN 3 MG ORAL TABLET 661702 MELATONIN Inactive SEROQUEL 100 MG ORAL TABLET 1 tab daily SEROQUEL 100 MG ORAL TABLET 521630 QUETIAPINE FUMARATE Inactive AMARYL 2 MG ORAL TABLET give 2.5 tabs PO daily AMARYL 2 MG ORAL TABLET 205732 GLIMEPIRIDE Inactive SEROQUEL 25 MG ORAL TABLET Take two tabs by mouth in the morning, take 4 tablets at night SEROQUEL 25 MG ORAL TABLET 249906 QUETIAPINE FUMARATE Inactive CEFDINIR 300 MG ORAL CAPSULE by mouth twice a day CEFDINIR 300 MG ORAL CAPSULE 897137 CEFDINIR Inactive AZITHROMYCIN 500 MG INTRAVENOUS SOLUTION RECONSTITUTED 1 po q day AZITHROMYCIN 500 MG INTRAVENOUS SOLUTION RECONSTITUTED [id number] AZITHROMYCIN Inactive AMOXICILLIN 500 MG ORAL CAPSULE 2 po BID x 10 days AMOXICILLIN 500 MG ORAL CAPSULE 992765 AMOXICILLIN Inactive PENICILLIN V POTASSIUM 500 MG ORAL TABLET 1 pill by mouth three times daily PENICILLIN V POTASSIUM 500 MG ORAL TABLET 856837 PENICILLIN V POTASSIUM Inactive KEFLEX 500 MG ORAL CAPSULE 1 po BID x 7 days KEFLEX 500 MG ORAL CAPSULE 634310 CEPHALEXIN Inactive Immunizations Vaccine Administration Date Value [...] Fluvirin, Fluarix, Agriflu(>=18 yo)) Fluzone (>3 yrs.) [[id number]] Influenza, seasonal, injectable pneumococcal immunization administered Pneumovax [...] ... - Chemistry sodium, serum 135 mmol/L 821-485 1277/08/22 carbon dioxide, venous blood 28.4 mmol/L 21.0-32.0 [...] mg/g {creat} 0-29 cholesterol, serum 263 mg/dL 681-684 2823/08/22 triglyceride, serum, fasting 1312 mg/dL 30-200 HDL [...] 80 mg/L 0-19 Office Visit: TCM from long term - Lab PSA (prostate specific antigent), recommendation and action PSA ordered Encounters Code Encounter Date Provider Facility CPT-56301 37305-Eqm Vst-Est Level III 11:00:25 CDT Shavonne Feliciano PA-C [facility]-73233 Level 3 Est. Patient 09:12:14 SPECIAL DAY [employer] TEACHER Mima Erazo [facility]-94744 Level 3 Est. Patient 16:52:51 CDT Vanessa Hickey MD [facility]-73334 Level 3 Est. Patient 17:40:16 CDT Mima Erazo [facility] CPT-28172 Level 3 Est. Patient 14:34:52 CDT Vanessa Hickey MD [facility]-53367 Level 3 Est. Patient 16:27:51 CDT Mima Erazo [facility] CPT-95901 Level 3 Est. Patient 14:39:00 [employer] DAY CLASS TEACHER Vanessa Hickey MD [facility] CPT-33773 Level 2 Est. Patient 18:43:34 CDT Mima Erazo [facility] CPT-83619 Level 3 Est. Patient 16:22:09 CDT Cherelle Avila [facility] CPT-08923 Level 4 Est. Patient 17:55:14 CDT Mima Erazo [facility] CPT-11838 Level 2 Est. Patient 17:13:21 CDT Alina Castaneda MD PhD [facility] CPT-47962 Level 3 Est. Patient 14:46:15 CDT Vanessa Hickey MD [facility] CPT-99620 Level 3 Est. Patient 09:34:56 CDT Alina Castaneda MD [facility]-34560 Level 3 Est. Patient 21:40:19 CDT Mima Erazo [place] [facility] CPT-18598 Level 3 Est. Patient 09:26:40 CDT Marvel Charles [facility]-88457 Level 3 Est. Patient 12:36:43 CDT Vanessa Hickey MD [facility]-86853 Level 3 Est. Patient 12:57:49 CDT Vanessa Hickey MD [facility]-96907 Level 3 Est. Patient 00:28:25 CDT Alina Castaneda MD [facility]-55009 Level 2 Est. Patient 12:52:14 CDT Alina Castaneda MD [facility]-18917 Level 3 Est. Patient 11:51:18 [employer] DAY [employer] TE[employer]ER Alina Castaneda MD [facility]-30471 Level 3 Est. Patient 10:09:22 SPECIAL DAY CLASS TEACHER Alina Castaneda MD [facility]-17833 Level 3 Est. Patient 14:36:26 SPECIAL DAY CLASS TEACHER Marvel Charles [facility]-35496 Level 3 Est. Patient 13:34:47 SPECIAL DAY CLASS TEACHER Alina Castaneda MD [facility]-63813 Level 3 Est. Patient 19:52:08 SPECIAL DAY CLASS TEACHER Alina Castaneda MD [facility] CPT-48156 Level 3 Est. Patient 10:01:51 SPECIAL DAY CLASS TEACHER Marvel Charles [facility]-25033 Level 3 Est. Patient 21:54:06 CDT Vanessa Hickey MD [facility]-41287 Level 3 Est. Patient 08:54:46 CDT Alina Castaneda MD [facility]-06354 Level 3 Est. Patient 09:32:11 CDT Marvel Thurstonestela [facility]-97671 Level 3 Est. Patient 12:02:49 CDT Alina Castaneda MD [facility]-54352 Level 3 Est. Patient 19:17:33 CDT Alina Castaneda MD PhD [facility]51835 Level 3 Est. Patient 13:19:10 CDT Marvel Gurdeepajayestela [facility]-49768 Level 3 Est. Patient 08:20:05 CDT Alina Castaneda MD [facility]69868 Level 3 Est. Patient 15:17:18 CDT Alina Castaneda MD [facility]-43846 Level 3 Est. Patient 14:25:36 SPECIAL DAY CLASS TEACHER [facility] 3 Est. Patient 10:09:15 SPECIAL DAY CLASS TEACHER [facility] Level 3 Est. Patient 21:28:43 CDT Alina Castaneda MD [facility]-80610 Level 3 Est. Patient 15:20:11 CDT Marvel Araceli [facility]-39270 Level 4 Est. Patient 19:08:12 CDT Alina Castaneda MD [facility]48327 Level 3 Est. Patient 15:06:39 CDT Marvel Charles [facility]-12779 Level 4 Est. Patient 17:48:15 CDT Alina Castaneda MD [facility]-86319 Level 3 Est. Patient 14:53:49 CDT Alina Castaneda MD PhD [facility]68324 Level 3 Est. Patient 09:35:16 CDT Alina Castaneda MD [facility]-02631 Level 3 Est. Patient 12:23:22 CDT Alina Castaneda MD [facility]-91217 Level 3 Est. Patient 16:19:15 CDT Alina Castaneda MD [facility]-50157 Level 3 Est. Patient 21:39:56 [employer] DAY CLASS TEACHER Alina Castaneda MD [facility]-38127 Level 4 Est. Patient 14:12:56 SPECIAL DAY CLASS TEACHER Alina Castaneda MD [facility]-79797 Level 2 Est. Patient 15:34:57 SPECIAL DAY CLASS TEACHER Alina Castaneda MD [facility]-32761 Level 3 Est. Patient 12:17:04 SPECIAL DAY CLASS TEACHER Alina Castaneda MD [facility]-37358 Level 3 Est. Patient 09:18:18 SPECIAL DAY CLASS TEACHER Marvel Charles [facility]-16210 Level 2 Est. Patient 21:50:24 CDT Alina Castaneda MD [facility]-43813 Level 3 Est. Patient 09:17:28 CDT Marvel Charles [facility]-60879 Level 4 Est. Patient 18:54:02 CDT Alina Castaneda MD [facility]-98258 Level 3 Est. Patient 10:47:10 CDT Alina Castaneda MD [facility]-25064 Level 3 Est. Patient 09:22:20 CDT Marvel Charles [facility]-17335 Level 3 Est. Patient 16:39:43 [facility] Level 3 Est. Patient 16:05:16 CDT Alina Castaneda MD [facility] CPT-37369 Level 3 Est. Patient 00:29:15 CDT Alina Castaneda MD [facility] CPT-93564 Level 3 Est. Patient 10:49:22 SPECIAL DAY CLASS TEACHER Marvel Thurstonestela [facility] CPT-83939 Level 3 Est. Patient 21:30:19 SPECIAL DAY CLASS TEACHER Alina Castaneda MD [facility] CPT-76906 Level 4 Est. Patient 17:04:11 SPECIAL DAY CLASS TEACHER [facility]32766 Level 3 Est. Patient 15:34:11 SPECIAL DAY CLASS TEACHER [facility] CPT-04215 Level 2 Est. Patient 12:51:58 SPECIAL DAY CLASS TEACHER Alina Castaneda MD [facility] CPT-46282 Level 3 Est. Patient 13:20:01 SPECIAL DAY CLASS TEACHER Alina Castaneda MD [facility] CPT-57152 Level 3 Est. Patient 09:23:35 CDT Alina Castaneda MD [facility] Procedures Code Procedure Name Date Entry Date Standard Description CPT-G0439 [facility] Annual Wellness Exam 15:49:52 SPECIAL DAY CLASS TEACHER CPT-17989 Level 3 Correction 13:20:19 CDT CPT-TCMM Transitional Care Mgmt-Moderate 12:32:19 CDT CPT-89395 Level 2 Correction 09:01:11 CDT CPT-70170 HGBA1C - LAB USE ONLY 09:30:27 [employer] DAY CLASS TEACHER CPT-25922 BMP - LAB USE ONLY 09:30:27 [employer] DAY CLASS TEACHER CPT-84548 Venipuncture Draw Fee 09:30:26 SPECIAL DAY CLASS TEACHER CPT-TCMM Transitional Care Mgmt-Moderate 10:25:31 CDT CPT-39670 Bladder Scan 14:34:53 CDT CPT-53410 Bladder Scan 14:39:01 SPECIAL DAY CLASS TEACHER CPT-TCMM Transitional Care Mgmt-Moderate 10:30:19 SPECIAL DAY CLASS TEACHER CPT-93387 Bladder Scan 12:36:44 CDT CPT-49414 Bladder Scan 21:54:06 CDT CPT-G0008 Administration of Influenza Virus Vaccine 13:05:26 CDT CPT-39792 Fluzone Quadrivalent Intramuscular Suspension 0.5 ML 13: 05:26 CDT CPT-84955 Administration single or combination vaccine inc oral 11 :49:51 CDT CPT-35825 Pneumovax 11:49:51 CDT CPT-85931 Ribs unilateral 2V 12:37:22 [employer] DAY CLASS TEACHER CPT-77089 Chest 2V Frontal and Lat 17:15:26 CDT CPT-73891 Abx/Therapy Injection 18:54:02 CDT CPT-J0696 Rocephin 1000 mg (Ceftriaxone) 16:00:32 CDT CPT-54681 Chest 2V Frontal and Lat 15:26:45 CDT CPT-95372 Chest 2V Frontal and Lat 10:23:27 CDT CPT-32995 Venipuncture Draw Fee 10:11:00 CDT CPT-72678 Administration single or combination vaccine inc oral 11 :56:38 CDT CPT-43769 Influenza split virus > age 3 11:56:38 CDT CPT-86751 Venipuncture Draw Fee 08:49:54 [employer] DAY CLASS TEACHER CPT-17042 EKG Trac and Interp 17:54:19 SPECIAL DAY CLASS TEACHER
[2018-07-02 12:27] LABS: BILIRUBIN,URINE NEGATIVE (NEGATIVE); CLARITY,URINE CLEAR; COLOR,URINE YELLOW; GLUCOSE, URINE (UA) 4+ (NEGATIVE); KETONES,URINE 2+ (NEGATIVE); LEUKOCYTE ESTERASE ,URINE NEGATIVE (NEGATIVE); NITRITE,URINE NEGATIVE (NEGATIVE); PH,URINE 6 (5-9); PROTEIN,URINE NEGATIVE (NEGATIVE); UROBILINOGEN,URINE NORMAL (NORMAL)
--- OUTSIDE RECORDS SUMMARY | 2018-07-02 12:28 | XMS REPORT | Clinical Summary ---
Author Author Admin, MIKEE Organization [facility] Address Unknown Phone Unavailable Allergies, Adverse Reactions, [...] Acute bronchitis PNEUMONIA, ORGANISM UNSPECIFIED 486 Resolved Alnia Castaneda MD PhD Pneumonia, organism unspecified RIB PAIN, RIGHT SIDED 786.50 Resolved Alina Castaneda MD PhD Unspecified chest pain SKIN LESION 709.9 Resolved Alina Castaneda MD PhD Unspecified disorder of skin and subcutaneous tissue HEADACHE 784.0 Resolved Shavonne Feliciano PA-C Headache SINUSITIS, ACUTE 461.9 Resolved Alina Castaneda MD PhD Acute sinusitis, unspecified DIABETIC HYPOGLYCEMIA, TYPE II 250.80 Resolved Marvel AMRROQUIN Diabetes mellitus with other specified manifestations, type [...] chest pain Chest pain, atypical 786.59 Resolved Alnia Castaneda MD PhD Other chest pain Urinary Retention 788.20 Active Vanessa Hickey MD Retention of urine, unspecified Benign paroxysmal positional vertigo 386.11 Active Mima Erazo [employer] Benign paroxysmal positional vertigo Vertigo, benign paroxysmal position 386.11 Inactive Mima Erazo [employer] Benign paroxysmal positional vertigo High-risk sexual behavior [...] EXTENDED RELEASE 1 tab BID VERAPAMIL HCL 59700337908 Active Shavonne Feliciano PA-C Active SEROQUEL 25 MG ORAL TABLET Take two tabs by mouth in the morning, take 4 tablets at night QUETIAPINE FUMARATE 61276708984 No Longer Active Shavonne Feliciano PA-C Active EFFEXOR XR 150 MG ORAL CAPSULE EXTENDED RELEASE 24 HOUR 1 tab daily VENLAFAXINE HCL 17856167378 Active Shavonne Feliciano PA-C Active QUETIAPINE FUMARATE 25 MG ORAL TABLET 2 tabs BID QUETIAPINE FUMARATE 40914861918 Active Shavonne Feliciano PA-C Active QUETIAPINE FUMARATE 100 MG ORAL TABLET 1 tab PO at HS QUETIAPINE FUMARATE 56283596235 Active Shavonne Feliciano PA-C Active AMARYL 2 MG ORAL TABLET give 2.5 tabs PO daily GLIMEPIRIDE 77164240292 No Longer Active Shavonne Feliciano PA-C Active AMARYL 2 MG ORAL TABLET give 2 tabs PO in the morning GLIMEPIRIDE 65511700619 Active Shavonne Feliciano PA-C Active FENOFIBRATE 145 MG ORAL TABLET 1 tab PO in the morning FENOFIBRATE 10407525153 Active Shavonne Feliciano PA-C Active SEROQUEL 100 MG ORAL TABLET 1 tab daily QUETIAPINE FUMARATE 31080564292 No Longer Active Shavonne Feliciano PA-C Active [facility] MELATONIN 3 MG ORAL TABLET give 1 tab by mouth at HS MELATONIN 63722163329 No Longer Active Gabrielle Marquez MA Active NOVOLOG FLEXPEN 100 UNIT/ML SUBCUTANEOUS SOLUTION PEN-INJECTOR sliding scale INSULIN ASPART 40031265122 Active Gabrielle Marquez MA Active METFORMIN HCL 1000 MG ORAL TABLET 1 tab by mouth BID METFORMIN HCL 61680951633 Active Gabrielle Marquez MA Active [facility] MELATONIN 3 MG ORAL TABLET 1 tab nightly MELATONIN 53395745534 Active Gabrielle Marquez MA Active TAMSULOSIN HCL 0.4 MG ORAL CAPSULE give 2 capsules PO each evening TAMSULOSIN HCL 32066810729 No Longer Active Gabrielle Marquez MA Active VITAMIN D 2000 UNIT ORAL CAPSULE Take one by mouth daily CHOLECALCIFEROL 01548164380 No Longer Active Gabrielle Marquez MA Active LATUDA 40 MG ORAL TABLET 1.5 tab by mouth in the afternoon LURASIDONE HCL 88931346797 Active Gabrielle Marquez MA Active LEVEMIR 100 UNIT/ML SUBCUTANEOUS SOLUTION 10 u at bedtime INSULIN DETEMIR 22418240504 Active Gabrielle Marquez MA Active TAMSULOSIN HCL 0.4 MG ORAL CAPSULE 2 every night for urine flow TAMSULOSIN HCL 43513275455 Active Gabrielle Marquez MA Active DIVALPROEX SODIUM 125 MG ORAL TABLET DELAYED RELEASE 1 tab each morning 02/17 DIVALPROEX SODIUM 81626299203 Active Gabrielle Marquez MA Active D 1000 TABLET 2 tab by mouth BID CHOLECALCIFEROL TABS 92124906201 Active Gabrielle Marquez MA Active ALIGN 4 MG ORAL CAPSULE 1 tab at hs PROBIOTIC PRODUCT 23801398767 Active Gabrielle Marquez MA Active CLONAZEPAM 1 MG ORAL TABLET 1 pill by mouth two times daily CLONAZEPAM 79738339494 Active Gabrielle Marquez MA Active OCEAN NASAL SPRAY SOLUTION 2 sprays in both nostrils every 8 hours as needed for dry mucous membranes SALINE SOLN 32545979873 Active Mason Loredo MD Active BETHANECHOL CHLORIDE 25 MG ORAL TABLET Take 1 tablet mouth four times a day BETHANECHOL CHLORIDE 75723843911 Active Mason Loredo MD Active [facility] LUBRICANT EYE DROPS 0.4-0.3 % OPHTHALMIC SOLUTION POLYETHYL GLYCOL-PROPYL GLYCOL 94662466846 No Longer Active Mason Loredo MD Active TYLENOL 8 HOUR 650 MG ORAL TABLET EXTENDED RELEASE 1 tab QID prn ACETAMINOPHEN 20375289854 No Longer Active Mason Loredo MD Active TOPAMAX 25 MG ORAL TABLET 1 tab BID PRN TOPIRAMATE 17768390012 Active Mason Loredo MD Active TIMOPTIC OCUDOSE 0.5 % OPHTHALMIC SOLUTION instill one drop into both eyes q12H TIMOLOL MALEATE 72536610222 Active Mason Loredo MD Active TRAZODONE HCL 100 MG ORAL TABLET 1 every night to prevent headaches TRAZODONE HCL 19498578769 No Longer Active Mason Loredo MD Active TRAVATAN Z 0.004 % OPHTHALMIC SOLUTION 1 drop each eye daily 2017 TRAVOPROST 75120992478 No Longer Active Mason Loredo MD Active LATUDA 60 MG ORAL TABLET 1 tab daily LURASIDONE HCL 54375535516 No Longer Active Mason Loredo MD Active MORPHINE SULFATE ER 30 MG ORAL TABLET EXTENDED RELEASE Take one capsule BID MORPHINE SULFATE 21348794110 No Longer Active Mason Loredo MD Active TRUE METRIX BLOOD GLUCOSE TEST IN VITRO STRIP Check blood sugars 3x/day. 2015 GLUCOSE BLOOD 64485110896 No Longer Active Mason Loredo MD Active TRUEPLUS LANCETS 30G 3x a day LANCETS 24797299314 No Longer Active Mason Loredo MD Active MYLANTA GAS RELIEF MAXIMUM STR 125 MG ORAL CAPSULE 30cc every 4 hours prn SIMETHICONE 77496015073 No Longer Active Mason Loredo MD Active IMODIUM A-D 2 MG ORAL TABLET 1 tab QID as needed LOPERAMIDE HCL 66495457859 No Longer Active Mason Loredo MD Active FLONASE ALLERGY RELIEF 50 MCG/ACT NASAL SUSPENSION One spray each nostril BID x 1 week then daily FLUTICASONE PROPIONATE 52336537888 No Longer Active Mason Loredo MD Active FLUVOXAMINE MALEATE 100 MG ORAL TABLET take one tab every AM et HS, and take 1 /2 tab at noon FLUVOXAMINE MALEATE 55755693115 No Longer Active Mason Loredo MD Active BD PEN NEEDLE MINI U/F 31G X 5 MM 4 a day INSULIN PEN NEEDLE 71610214072 No Longer Active Mason Loredo MD Active AMITIZA 24 MCG ORAL CAPSULE Take one capsule BID for constipation LUBIPROSTONE 36101014137 No Longer Active Mason Loredo MD Active TRUEPLUS LANCETS 30G 3 a day LANCETS 87069910893 No Longer Active Mason Loredo MD Active CORICIDIN HBP CONGESTION/COUGH 10-200 MG ORAL CAPSULE Take as directed on box as needed for cold/flu symptoms DEXTROMETHORPHAN- GUAIFENESIN 76296178153 No Longer Active Mason Loredo MD Active OMEGA-3 300 MG ORAL CAPSULE 4 caps by mouth daily OMEGA-3 FATTY ACIDS 86412445562 No Longer Active Mason Loredo MD Active HUMALOG KWIKPEN 100 UNIT/ML SUBCUTANEOUS SOLUTION PEN-INJECTOR sliding scale if needed INSULIN LISPRO (HUMAN) 11798772884 No Longer Active Mason Loredo MD Active TRUETEST TEST IN VITRO STRIP check blood sugars 3x/day GLUCOSE BLOOD 76914344202 No Longer Active Mason Loredo MD Active ALFUZOSIN HCL ER 10 MG ORAL TABLET EXTENDED RELEASE 24 HOUR 1 tablet daily ALFUZOSIN HCL 80638791469 No Longer Active Mason Loredo MD Active BD INSULIN SYRINGE 28G X 1/2" 1 ML 1 four times per day INSULIN SYRINGE-NEEDLE U-100 59364384597 No Longer Active Mason Loredo MD Active LEVEMIR FLEXTOUCH 100 UNIT/ML SUBCUTANEOUS SOLUTION PEN-INJECTOR 60 units SQ each evening, for diabetes INSULIN DETEMIR 43307146797 No Longer Active Mason Loredo MD Active LACTULOSE 20 GM/30ML ORAL SOLUTION give 30 Ml PO BID PRN LACTULOSE 55880098915 Active Mason Loredo MD Active COLACE 100 MG ORAL CAPSULE 1 tab BID PRN DOCUSATE SODIUM 27918840842 Active Mason Loredo MD Active LATANOPROST 0.005 % OPHTHALMIC SOLUTION instill 1 drop in both eyes at bed time LATANOPROST 67378789005 Active Mason Loredo MD Active MIRALAX ORAL POWDER 17g by mouth q12h, for constipation POLYETHYLENE GLYCOL 3350 39938177037 Active Mason Loredo MD Active IBUPROFEN 400 MG ORAL TABLET 1 tab Q6H PRN IBUPROFEN 98372650477 Active Mason Loredo MD Active FLUVOXAMINE MALEATE 50 MG ORAL TABLET 1 tab by mouth daily 04/01 FLUVOXAMINE MALEATE 43467122489 No Longer Active Mima Erazo APRN Active TRUE METRIX METER w/Device KIT Check blood sugars 3x/day BLOOD GLUCOSE MONITORING SUPPL 80957490817 Active Marvel Mackenzieglari DIRECTOR OF SECURITY Active LATUDA 60 MG ORAL TABLET Take one by mouth daily LURASIDONE HCL 74105762827 No Longer Active Mima Erazo APRN Active [facility] MILK OF MAGNESIA 400 MG/5ML ORAL SUSPENSION 30ml by mouth bid prn MAGNESIUM HYDROXIDE 93515369375 Active Mason Loredo MD Active TRAVATAN Z 0.004 % OPHTHALMIC SOLUTION 1 gtt each eye daily TRAVOPROST 09945794535 No Longer Active Mason Loredo MD Active LISINOPRIL 20 MG ORAL TABLET 1 BID LISINOPRIL 62201889760 No Longer Active Mason Loredo MD Active ZOLPIDEM TARTRATE 10 MG ORAL TABLET take at bedtime ZOLPIDEM TARTRATE 32434914753 No Longer Active Mason Loredo MD Active HYDROCODONE-ACETAMINOPHEN 5-325 MG ORAL TABLET 2 tabs by mouth three times daily for pain HYDROCODONE-ACETAMINOPHEN 99748401633 No Longer Active Mason Loredo MD Active ZOFRAN 4 MG ORAL TABLET 1 po q4hr PRN Nausea ONDANSETRON HCL 49430077870 No Longer Active Mason Loredo MD Active LOMOTIL 2.5-0.025 MG ORAL TABLET take 1-2 tabs PO after each stool, no more than 8 in 24 hours DIPHENOXYLATE-ATROPINE 01309273724 No Longer Active Mason Loredo MD Active COLACE 100 MG ORAL CAPSULE 1 pill by mouth twice daily, for constipation 2014 DOCUSATE SODIUM 82898962130 No Longer Active Mima Yokum [employer] Active TOLTERODINE TARTRATE 2 MG ORAL TABLET 1 pill twice daily, for bladder TOLTERODINE TARTRATE 10453263947 No Longer Active Vanessa Hickey MD Active AMITIZA 24 MCG ORAL CAPSULE Take one capsule BID for constipation. LUBIPROSTONE 30023714780 No Longer Active Vanessa Hickey MD Active METOPROLOL SUCCINATE ER 100 MG ORAL TABLET EXTENDED RELEASE 24 HOUR 1 by mouth daily for blood pressure METOPROLOL SUCCINATE 54535985432 No Longer Active Grace Nelsonb RMA Active METFORMIN HCL ER 500 MG ORAL TABLET EXTENDED RELEASE 24 HOUR Take three tablets by mouth everyday METFORMIN HCL 66145179203 No Longer Active Grace Azam RMA Active LOVAZA 1 GM ORAL CAPSULE 4 daily (for triglycerides) [id number] ETHYL ESTERS 01670870153 No Longer Active Grace Azam RMA Active TRAZODONE HCL 100 MG ORAL TABLET 1 tab by mouth for sleep TRAZODONE HCL 13497448836 No Longer Active Grace Azam RMA Active NOVOFINE 32G X 6 MM use one four times per day INSULIN PEN NEEDLE 59498607921 No Longer Active Grace Azam RMA Active BACTROBAN 2 % EXTERNAL CREAM Apply to affected area BID for up to 10 days MUPIROCIN CALCIUM 42272191194 No Longer Active Grace Azam RMA Active KEFLEX 500 MG ORAL CAPSULE 1 po BID x 7 days CEPHALEXIN 71143811173 No Longer Active Cherelle Avila [employer] Active FLUVOXAMINE MALEATE 100 MG ORAL TABLET Take one (1) tablet by mouth am, 1/2 at noon FLUVOXAMINE MALEATE 36913225740 No Longer Active Mima Erazo [employer] Active FLUVOXAMINE MALEATE 100 MG ORAL TABLET Take 1/2 tab at noon 03/04 FLUVOXAMINE MALEATE 31541216871 No Longer Active Cherelle Avila [employer] Active ACCU-CHEK ROSA DEVICE Use device to check blood sugars BLOOD GLUCOSE MONITORING SUPPL 85996354076 No Longer Active Brooksjohn MARROQUIN Active ACCU-CHEK ROSA IN VITRO STRIP use strips with device to check blood sugars 3 times daily GLUCOSE BLOOD 60105390522 No Longer Active Brooksjohn MARROQUIN Active VERAPAMIL HCL ER 180 MG ORAL TABLET EXTENDED RELEASE 1 pill by mouth twice daily, for migraine prevention VERAPAMIL HCL 07077911335 Active Mima Erazo [employer] Active CYCLOBENZAPRINE HCL 10 MG ORAL TABLET 1 tablet by mouth three times daily, scheduled CYCLOBENZAPRINE HCL 45017351775 No Longer Active Alina Castaneda MD PhD Active HUMALOG 100 UNIT/ML SUBCUTANEOUS SOLUTION Take 20 units with breakfast, 10u with lunch and suppetr. INSULIN LISPRO (HUMAN) 61976885748 No Longer Active Alina Castaneda MD PhD Active TRUETEST TEST IN VITRO STRIP check sugars 4x/day GLUCOSE BLOOD 18153708246 No Longer Active Alina Castaneda MD PhD Active MORPHINE SULFATE 30 MG ORAL TABLET 1 pill by mouth twice daily, for pain 2013 MORPHINE SULFATE 51392768498 No Longer Active Mason Loredo MD Active ACYCLOVIR 400 MG ORAL TABLET 1 pill three times daily x 5 days, for cold sore outbreak ACYCLOVIR 73991413002 No Longer Active Alina Castaneda MD PhD Active PENICILLIN V POTASSIUM 500 MG ORAL TABLET 1 pill by mouth three times daily PENICILLIN V POTASSIUM 41025588832 No Longer Active Alina Castaneda MD PhD Active UROXATRAL 10 MG ORAL TABLET EXTENDED RELEASE 24 HOUR Take 1 tablet by mouth daily ALFUZOSIN HCL 27470241398 No Longer Active Alina Castaneda MD PhD Active THIOTHIXENE 5 MG ORAL CAPSULE by mouth twice a day THIOTHIXENE 13909665769 No Longer Active Alina Castaneda MD PhD Active ZYPREXA 7.5 MG ORAL TABLET 1 at HS OLANZAPINE 62116084303 No Longer Active Alina Castaneda MD PhD Active DETROL LA 4 MG ORAL CAPSULE EXTENDED RELEASE 24 HOUR Take 1 tablet by mouth daily TOLTERODINE TARTRATE 23130869052 No Longer Active Alina Castaneda MD PhD Active TERESE CONTOUR TEST IN VITRO STRIP monitor blood sugars 3x/day GLUCOSE BLOOD 09374663838 No Longer Active Alina Castaneda MD PhD Active EQL TRUETEST TEST IN VITRO STRIP Test blood sugar TID GLUCOSE BLOOD 16906229137 No Longer Active Alina Castaneda MD PhD Active FLUTICASONE PROPIONATE 50 MCG/ACT NASAL SUSPENSION 2 sprays each nostril qDay x 30 days FLUTICASONE PROPIONATE 07210325981 No Longer Active Alina Castaneda MD PhD Active IBUPROFEN 200 MG ORAL TABLET 1 Q 6 hr. PRN IBUPROFEN 76801966614 No Longer Active Alina Castaneda MD PhD Active NIACIN ER 500 MG ORAL TABLET EXTENDED RELEASE 4 qHS (for triglycerides) 01/13 NIACIN 33899815839 No Longer Active Alina Castaneda MD PhD Active SAPHRIS 5 MG SUBLINGUAL TABLET SUBLINGUAL by mouth twice a day ASENAPINE MALEATE 13919571841 No Longer Active Marvel MARROQUIN Active ACETAMINOPHEN 500 MG ORAL TABLET 2 Q 6 hr. PRN ACETAMINOPHEN 67092027838 No Longer Active Maljohn Ziglari LOPEZ Active ORPHENADRINE CITRATE ER 100 MG ORAL TABLET EXTENDED RELEASE 12 HOUR 1 every 12 hr. as needed ORPHENADRINE CITRATE 56557780177 No Longer Active Alina Castaneda MD PhD Active NIACIN ER 500 MG ORAL TABLET EXTENDED RELEASE 2 qHS NIACIN 17812061091 No Longer Active Alina Castaneda MD PhD Active AMOXICILLIN 500 MG ORAL CAPSULE 2 po BID x 10 days AMOXICILLIN 84610143467 No Longer Active Alina Castaneda MD PhD Active HYDROCODONE-ACETAMINOPHEN 7.5-325 MG ORAL TABLET 1 four times a day as needed for pain HYDROCODONE-ACETAMINOPHEN 47150500473 No Longer Active Alina Castaneda MD PhD Active DOXEPIN HCL 10 MG ORAL CAPSULE Take 1 tablet by mouth daily DOXEPIN HCL 97364391865 No Longer Active Salina Han A Active NAVANE 10 MG CAPS 1/2 tablet twice a day THIOTHIXENE No Longer Active Salina ROBBINSA Active CYCLOBENZAPRINE HCL 10 MG ORAL TABLET 1/2 tablet by mouth every 8 hours as needed for muscle spasms CYCLOBENZAPRINE HCL 21364475237 No Longer Active Alina Castaneda MD PhD Active BACTROBAN 2 % EXTERNAL CREAM apply to ear and nose twice daily MUPIROCIN CALCIUM 33703775837 No Longer Active Alina Castaneda MD PhD Active HYDROCODONE-ACETAMINOPHEN 5-325 MG ORAL TABLET take one tablet by mouth every four hours as needed for pain HYDROCODONE-ACETAMINOPHEN 68408820741 No Longer Active Alina Castaneda MD PhD Active ZYPREXA 5 MG ORAL TABLET take one tablet by mouth every evening OLANZAPINE 67910127012 No Longer Active Alina Castaneda MD PhD Active ALBUTEROL SULFATE (2.5 MG/3ML) 0.083% INHALATION NEBULIZATION SOLUTION one vial per nebulizer TID and PRN cough/soa ALBUTEROL SULFATE 74187111868 No Longer Active Alina Castaneda MD PhD Active GUAIFENESIN ER 600 MG ORAL TABLET EXTENDED RELEASE 12 HOUR 1 tablet by mouth twice daily if needed for cough GUAIFENESIN 29512332862 No Longer Active Marvel MARROQUIN Active AZITHROMYCIN 500 MG INTRAVENOUS SOLUTION RECONSTITUTED 1 po q day AZITHROMYCIN 75191740970 No Longer Active Alina Castaneda MD PhD Active PROMETHAZINE-CODEINE 6.25-10 MG/5ML ORAL SYRUP 1 tsp po q 6 hours prn cough PROMETHAZINE-CODEINE 11869772645 No Longer Active Alina Castaneda MD PhD Active CEFDINIR 300 MG ORAL CAPSULE by mouth twice a day CEFDINIR 07385450069 No Longer Active Alina Castaneda MD PhD Active METFORMIN HCL ER 500 MG ORAL TABLET EXTENDED RELEASE 24 HOUR Take 3 tablets by mouth everyday METFORMIN HCL 67837405829 No Longer Active Alina Castaneda MD PhD Active LEVEMIR 100 UNIT/ML SUBCUTANEOUS SOLUTION 90 units SQ qHS INSULIN DETEMIR 04340248057 No Longer Active Marvel MARROQUIN Active TOPROL XL 100 MG ORAL TABLET EXTENDED RELEASE 24 HOUR 1 @ HS METOPROLOL SUCCINATE 09594414002 No Longer Active Marvel MARROQUIN Active ALLOPURINOL 300 MG ORAL TABLET Take one by mouth daily ALLOPURINOL 44991588998 Active Mima Erazo [employer] Active ZYPREXA 10 MG ORAL TABLET Take one by mouth daily OLANZAPINE 28391649973 No Longer Active Alina Castaneda MD PhD Active NOVOLOG 100 UNIT/ML SUBCUTANEOUS SOLUTION 40 units with every meal INSULIN ASPART 77497612127 No Longer Active Alina Castaneda MD PhD Active VERAPAMIL HCL ER 120 MG ORAL TABLET EXTENDED RELEASE 1 qPM 09/08 VERAPAMIL HCL 92657112197 No Longer Active Salina ROJAS Active ZYPREXA 15 MG ORAL TABLET Take 1 tablet by mouth daily OLANZAPINE 51809353576 No Longer Active Marvel MARROQUIN Active ALBUTEROL SULFATE (2.5 MG/3ML) 0.083% INHALATION NEBULIZATION SOLUTION 1 neb tid and prn cough ALBUTEROL SULFATE 19885529022 No Longer Active Alina Castaneda MD PhD Active LANTUS 100 UNIT/ML SUBCUTANEOUS SOLUTION 60 units sq q hs INSULIN GLARGINE 92191545393 No Longer Active CRYSTAL Suarez Active ALBUTEROL SULFATE (2.5 MG/3ML) 0.083% INHALATION NEBULIZATION SOLUTION 1 neb tid and prn cough ALBUTEROL SULFATE (2.5 MG/3ML) 0.083% INHALATION NEBULIZATION SOLUTION 284075 ALBUTEROL SULFATE Inactive ZYPREXA 15 MG ORAL TABLET Take 1 tablet by mouth daily ZYPREXA 15 MG ORAL TABLET 402576 OLANZAPINE Inactive VERAPAMIL HCL ER 120 MG ORAL TABLET EXTENDED RELEASE 1 qPM 09/08 VERAPAMIL HCL ER 120 MG ORAL TABLET EXTENDED RELEASE VERAPAMIL HCL Inactive ZYPREXA 10 MG ORAL TABLET Take one by mouth daily ZYPREXA 10 MG ORAL TABLET 043450 OLANZAPINE Inactive TOPROL XL 100 MG ORAL TABLET EXTENDED RELEASE 24 HOUR 1 @ HS TOPROL XL 100 MG ORAL TABLET EXTENDED RELEASE 24 HOUR METOPROLOL SUCCINATE Inactive LEVEMIR 100 UNIT/ML SUBCUTANEOUS SOLUTION 90 units SQ qHS LEVEMIR 100 UNIT/ML SUBCUTANEOUS SOLUTION INSULIN DETEMIR Inactive PROMETHAZINE-CODEINE 6.25-10 MG/5ML ORAL SYRUP 1 tsp po q 6 hours prn cough PROMETHAZINE-CODEINE 6.25-10 MG/5ML ORAL SYRUP 241028 PROMETHAZINE-CODEINE Inactive GUAIFENESIN ER 600 MG ORAL TABLET EXTENDED RELEASE 12 HOUR 1 tablet by mouth twice daily if needed for cough GUAIFENESIN ER 600 MG ORAL TABLET EXTENDED RELEASE 12 HOUR GUAIFENESIN Inactive ALBUTEROL SULFATE (2.5 MG/3ML) 0.083% INHALATION NEBULIZATION SOLUTION one vial per nebulizer TID and PRN cough/soa ALBUTEROL SULFATE (2.5 MG/3ML) 0.083% INHALATION NEBULIZATION SOLUTION 029784 ALBUTEROL SULFATE Inactive ZYPREXA 5 MG ORAL TABLET take one tablet by mouth every evening ZYPREXA 5 MG ORAL TABLET 558870 OLANZAPINE Inactive HYDROCODONE-ACETAMINOPHEN 5-325 MG ORAL TABLET take one tablet by mouth every four hours as needed for pain HYDROCODONE-ACETAMINOPHEN 5-325 MG ORAL TABLET 614844 HYDROCODONE-ACETAMINOPHEN Inactive BACTROBAN 2 % EXTERNAL CREAM apply to ear and nose twice daily BACTROBAN 2 % EXTERNAL CREAM 785706 MUPIROCIN CALCIUM Inactive CYCLOBENZAPRINE HCL 10 MG ORAL TABLET 1/2 tablet by mouth every 8 hours as needed for muscle spasms CYCLOBENZAPRINE HCL 10 MG ORAL TABLET 468840 CYCLOBENZAPRINE HCL Inactive NAVANE 10 MG CAPS 1/2 tablet twice a day NAVANE 10 MG CAPS THIOTHIXENE Inactive DOXEPIN HCL 10 MG ORAL CAPSULE Take 1 tablet by mouth daily DOXEPIN HCL 10 MG ORAL CAPSULE 7485956 DOXEPIN HCL Inactive HYDROCODONE-ACETAMINOPHEN 7.5-325 MG ORAL TABLET 1 four times a day as needed for pain HYDROCODONE-ACETAMINOPHEN 7.5-325 MG ORAL TABLET 494852 HYDROCODONE-ACETAMINOPHEN Inactive NIACIN ER 500 MG ORAL [...] hr. PRN ACETAMINOPHEN 500 MG ORAL TABLET 917190 ACETAMINOPHEN Inactive SAPHRIS 5 MG SUBLINGUAL TABLET SUBLINGUAL by mouth twice a day SAPHRIS 5 MG SUBLINGUAL TABLET SUBLINGUAL ASENAPINE MALEATE Inactive NIACIN ER 500 MG ORAL TABLET EXTENDED RELEASE 4 qHS (for triglycerides) 01/13 NIACIN ER 500 MG ORAL TABLET EXTENDED RELEASE NIACIN Inactive IBUPROFEN 200 MG ORAL TABLET 1 Q 6 hr. PRN IBUPROFEN 200 MG ORAL TABLET 698244 IBUPROFEN Inactive FLUTICASONE PROPIONATE 50 MCG/ACT NASAL SUSPENSION 2 sprays each nostril qDay x 30 days FLUTICASONE PROPIONATE 50 MCG/ACT NASAL SUSPENSION 6030231 FLUTICASONE PROPIONATE Inactive EQL TRUETEST TEST IN [...] at HS ZYPREXA 7.5 MG ORAL TABLET 875881 OLANZAPINE Inactive THIOTHIXENE 5 MG ORAL CAPSULE by mouth twice a day THIOTHIXENE 5 MG ORAL CAPSULE 843289 THIOTHIXENE Inactive UROXATRAL 10 MG ORAL TABLET EXTENDED RELEASE 24 HOUR Take 1 tablet by mouth daily UROXATRAL 10 MG ORAL TABLET EXTENDED RELEASE 24 HOUR ALFUZOSIN HCL Inactive ACYCLOVIR 400 MG ORAL TABLET 1 pill three times daily x 5 days, for cold sore outbreak ACYCLOVIR 400 MG ORAL TABLET 393858 ACYCLOVIR Inactive TRUETEST TEST IN VITRO STRIP check sugars 4x/day TRUETEST TEST IN VITRO STRIP GLUCOSE BLOOD Inactive HUMALOG 100 UNIT/ML SUBCUTANEOUS SOLUTION Take 20 units with breakfast, 10u with lunch and suppetr. HUMALOG 100 UNIT/ML SUBCUTANEOUS SOLUTION INSULIN LISPRO (HUMAN) Inactive CYCLOBENZAPRINE HCL 10 MG ORAL TABLET 1 tablet by mouth three times daily, scheduled CYCLOBENZAPRINE HCL 10 MG ORAL TABLET 717126 CYCLOBENZAPRINE HCL Inactive ACCU-CHEK ROSA IN VITRO STRIP use strips with device to check blood sugars 3 times daily ACCU-CHEK ROSA IN VITRO STRIP GLUCOSE BLOOD Inactive ACCU-CHEK ROSA DEVICE Use device to check blood sugars ACCU-CHEK ROSA DEVICE BLOOD GLUCOSE MONITORING SUPPL Inactive FLUVOXAMINE MALEATE 100 MG ORAL TABLET Take 1/2 tab at noon 03/04 FLUVOXAMINE MALEATE 100 MG ORAL TABLET 441027 FLUVOXAMINE MALEATE Inactive FLUVOXAMINE MALEATE 100 MG ORAL TABLET Take one (1) tablet by mouth am, 1/2 at noon FLUVOXAMINE MALEATE 100 MG ORAL TABLET 958828 FLUVOXAMINE MALEATE Inactive BACTROBAN 2 % EXTERNAL CREAM Apply to affected area BID for up to 10 days BACTROBAN 2 % EXTERNAL CREAM 882818 MUPIROCIN CALCIUM Inactive NOVOFINE 32G X 6 MM use one four times per day NOVOFINE 32G X 6 MM INSULIN PEN NEEDLE Inactive TRAZODONE HCL 100 MG ORAL TABLET 1 tab by mouth for sleep TRAZODONE HCL 100 MG ORAL TABLET 340910 TRAZODONE HCL Inactive LOVAZA 1 GM ORAL CAPSULE 4 daily (for triglycerides) LOVAZA 1 GM ORAL CAPSULE 753204 [id number] ETHYL ESTERS Inactive METFORMIN HCL ER 500 [...] bladder TOLTERODINE TARTRATE 2 MG ORAL TABLET 584924 TOLTERODINE TARTRATE Inactive COLACE 100 MG ORAL CAPSULE 1 pill by mouth twice daily, for constipation 2014 COLACE 100 MG ORAL CAPSULE 4828692 DOCUSATE SODIUM Inactive LOMOTIL 2.5-0.025 MG ORAL TABLET take 1-2 tabs PO after each stool, no more than 8 in 24 hours LOMOTIL 2.5-0.025 MG ORAL TABLET 7219949 DIPHENOXYLATE-ATROPINE Inactive ZOFRAN 4 MG ORAL TABLET 1 po q4hr PRN Nausea ZOFRAN 4 MG ORAL TABLET 979150 ONDANSETRON HCL Inactive HYDROCODONE-ACETAMINOPHEN 5-325 MG ORAL TABLET 2 tabs by mouth three times daily for pain HYDROCODONE-ACETAMINOPHEN 5-325 MG ORAL TABLET 099056 HYDROCODONE-ACETAMINOPHEN Inactive ZOLPIDEM TARTRATE 10 MG ORAL TABLET take at bedtime ZOLPIDEM TARTRATE 10 MG ORAL TABLET 747399 ZOLPIDEM TARTRATE Inactive LISINOPRIL 20 MG ORAL TABLET 1 BID LISINOPRIL 20 MG ORAL TABLET 343728 LISINOPRIL Inactive TRAVATAN Z 0.004 % OPHTHALMIC SOLUTION 1 gtt each eye daily TRAVATAN Z 0.004 % OPHTHALMIC SOLUTION TRAVOPROST Inactive LATUDA 60 MG ORAL TABLET Take one by mouth daily LATUDA 60 MG ORAL TABLET LURASIDONE HCL Inactive FLUVOXAMINE MALEATE 50 MG ORAL TABLET 1 tab by mouth daily 04/01 FLUVOXAMINE MALEATE 50 MG ORAL TABLET 592940 FLUVOXAMINE MALEATE Inactive LEVEMIR FLEXTOUCH 100 UNIT/ML [...] 30G 3 a day TRUEPLUS LANCETS 30G [id number] LANCETS Inactive AMITIZA 24 MCG ORAL CAPSULE [...] noon FLUVOXAMINE MALEATE 100 MG ORAL TABLET 875241 FLUVOXAMINE MALEATE Inactive FLONASE ALLERGY RELIEF 50 MCG/ACT NASAL SUSPENSION One spray each nostril BID x 1 week then daily FLONASE ALLERGY RELIEF 50 MCG/ACT NASAL SUSPENSION [id number] FLUTICASONE PROPIONATE Inactive IMODIUM A-D 2 MG ORAL TABLET 1 tab QID as needed IMODIUM A-D 2 MG ORAL TABLET 808188 LOPERAMIDE HCL Inactive MYLANTA GAS RELIEF MAXIMUM STR 125 MG ORAL CAPSULE 30cc every 4 hours prn MYLANTA GAS RELIEF MAXIMUM STR 125 MG ORAL CAPSULE SIMETHICONE Inactive TRUEPLUS LANCETS 30G 3x a day TRUEPLUS LANCETS 30G [id number] LANCETS Inactive TRUE METRIX BLOOD GLUCOSE TEST [...] headaches TRAZODONE HCL 100 MG ORAL TABLET 759704 TRAZODONE HCL Inactive TYLENOL 8 HOUR 650 [...] evening TAMSULOSIN HCL 0.4 MG ORAL CAPSULE 140868 TAMSULOSIN HCL Inactive [facility] MEL[facility] 3 MG ORAL TABLET give 1 tab by mouth at HS [facility] MELATONIN 3 MG ORAL TABLET 136041 MELATONIN Inactive SEROQUEL 100 MG ORAL TABLET 1 tab daily SEROQUEL 100 MG ORAL TABLET 028408 QUETIAPINE FUMARATE Inactive AMARYL 2 MG ORAL TABLET give 2.5 tabs PO daily AMARYL 2 MG ORAL TABLET 734572 GLIMEPIRIDE Inactive SEROQUEL 25 MG ORAL TABLET Take two tabs by mouth in the morning, take 4 tablets at night SEROQUEL 25 MG ORAL TABLET 836812 QUETIAPINE FUMARATE Inactive CEFDINIR 300 MG ORAL CAPSULE by mouth twice a day CEFDINIR 300 MG ORAL CAPSULE 894842 CEFDINIR Inactive AZITHROMYCIN 500 MG INTRAVENOUS SOLUTION RECONSTITUTED 1 po q day AZITHROMYCIN 500 MG INTRAVENOUS SOLUTION RECONSTITUTED [id number] AZITHROMYCIN Inactive AMOXICILLIN 500 MG ORAL CAPSULE 2 po BID x 10 days AMOXICILLIN 500 MG ORAL CAPSULE 042160 AMOXICILLIN Inactive PENICILLIN V POTASSIUM 500 MG ORAL TABLET 1 pill by mouth three times daily PENICILLIN V POTASSIUM 500 MG ORAL TABLET 533145 PENICILLIN V POTASSIUM Inactive KEFLEX 500 MG ORAL CAPSULE 1 po BID x 7 days KEFLEX 500 MG ORAL CAPSULE 769211 CEPHALEXIN Inactive Immunizations Vaccine Administration Date Value [...] Fluvirin, Fluarix, Agriflu(>=18 yo)) Fluzone (>3 yrs.) [[id number]] Influenza, seasonal, injectable pneumococcal immunization administered Pneumovax [...] ... - Chemistry sodium, serum 135 mmol/L 145-477 3922/08/22 carbon dioxide, venous blood 28.4 mmol/L 21.0-32.0 [...] mg/g {creat} 0-29 cholesterol, serum 263 mg/dL 405-478 5896/08/22 triglyceride, serum, fasting 1312 mg/dL 30-200 HDL [...] 80 mg/L 0-19 Office Visit: TCM from senior living - Lab PSA (prostate specific antigent), recommendation and action PSA ordered Encounters Code Encounter Date Provider Facility CPT-71250 [id number] Vst-Est Level III 11:00:25 CDT Shavonne Feliciano PA-C [facility]-37353 Level 3 Est. Patient 09:12:14 [employer] Mima Erazo [facility]-72338 Level 3 Est. Patient 16:52:51 CDT Vanessa Hickey MD [facility]-92925 Level 3 Est. Patient 17:40:16 CDT Mima Erazo [facility] CPT-40456 Level 3 Est. Patient 14:34:52 CDT Vanessa Hickey MD [facility]-45718 Level 3 Est. Patient 16:27:51 CDT Mima Erazo [facility] CPT-63041 Level 3 Est. Patient 14:39:00 [employer] Vanessa Hickey MD [facility] CPT-59927 Level 2 Est. Patient 18:43:34 CDT Mima Erazo [facility] CPT-38838 Level 3 Est. Patient 16:22:09 CDT Cherelle Avila [facility] CPT-88480 Level 4 Est. Patient 17:55:14 CDT Mima Erazo [facility] CPT-16325 Level 2 Est. Patient 17:13:21 CDT Alina Castaneda MD PhD [facility] CPT-29156 Level 3 Est. Patient 14:46:15 CDT Vanessa Hickey MD [facility] CPT-60401 Level 3 Est. Patient 09:34:56 CDT Alina Castaneda MD [facility]-89217 Level 3 Est. Patient 21:40:19 CDT Mima Erazo [facility] CPT-89750 Level 3 Est. Patient 09:26:40 CDT Marvel Charles [facility]-51565 Level 3 Est. Patient 12:36:43 CDT Vanessa Hickey MD [facility]-42435 Level 3 Est. Patient 12:57:49 CDT Vanessa Hickey MD [facility]-90259 Level 3 Est. Patient 00:28:25 CDT Alina Castaneda MD [facility]-17670 Level 2 Est. Patient 12:52:14 CDT Alina Castaneda MD [facility]-89035 Level 3 Est. Patient 11:51:18 [employer] Alina [facility]-73998 Level 3 Est. Patient 10:09:22 [employer] Alina Castaneda MD [facility]-97027 Level 3 Est. Patient 14:36:26 [employer] Mravel Charles [facility]-44884 Level 3 Est. Patient 13:34:47 [employer] Alina Castaneda MD [facility]-00598 Level 3 Est. Patient 19:52:08 [employer] Alina Castaneda MD [facility] CPT-88471 Level 3 Est. Patient 10:01:51 [employer] Marvel Charles [facility]-35772 Level 3 Est. Patient 21:54:06 CDT Vanessa Hickey MD [facility]-29355 Level 3 Est. Patient 08:54:46 CDT Alina Castaneda MD [facility]-18446 Level 3 Est. Patient 09:32:11 CDT Marvel Thurstonestela [facility]-38450 Level 3 Est. Patient 12:02:49 CDT Alina Castaneda MD [facility]-81629 Level 3 Est. Patient 19:17:33 CDT Alina Castaneda MD PhD [facility]84639 Level 3 Est. Patient 13:19:10 CDT Marvel Gurdeepajayestela [facility]-68011 Level 3 Est. Patient 08:20:05 CDT Alina Castaneda MD [facility]95492 Level 3 Est. Patient 15:17:18 CDT Alina Castaneda MD [facility]-71880 Level 3 Est. Patient 14:25:36 [employer] [facility] 3 Est. Patient 10:09:15 [employer] [facility]109 [facility] Est. Patient 21:28:43 CDT Alina Castaneda MD [facility]-86887 Level 3 Est. Patient 15:20:11 CDT Marvel Araceli [facility]-38960 Level 4 Est. Patient 19:08:12 CDT Alina Castaneda MD [facility]04215 Level 3 Est. Patient 15:06:39 CDT Marvel Charles [facility]-60401 Level 4 Est. Patient 17:48:15 CDT Alina Castaneda MD [facility] 2001-79523 Level 3 Est. Patient 14:53:49 CDT Alina Castaneda MD PhD [facility]17942 Level 3 Est. Patient 09:35:16 CDT Alina Castaneda MD [facility]-23037 Level 3 Est. Patient 12:23:22 CDT Alina Castaneda MD [facility]-68357 Level 3 Est. Patient 16:19:15 CDT Alina Castaneda MD [facility]-28053 Level 3 Est. Patient 21:39:56 [employer] Alina Castaneda MD [facility] 2001-84356 Level 4 Est. Patient 14:12:56 [employer] Alina Castaneda MD [facility] 2001-39346 Level 2 Est. Patient 15:34:57 [employer] Alina Castaneda MD [facility] 2001-29952 Level 3 Est. Patient 12:17:04 [employer] Alina Castaneda MD [facility]-80912 Level 3 Est. Patient 09:18:18 [employer] Marvel Charles [facility]-65198 Level 2 Est. Patient 21:50:24 CDT Alina Castaneda MD [facility] 2001-57873 Level 3 Est. Patient 09:17:28 CDT Marvel Charles [facility]-56019 Level 4 Est. Patient 18:54:02 CDT Alina Castaneda MD [facility] 2001-61144 Level 3 Est. Patient 10:47:10 CDT Alina Castaneda MD [facility]-90730 Level 3 Est. Patient 09:22:20 CDT Marvel Charles [facility]-12406 Level 3 Est. Patient 16:39:43 [facility]37 Level 3 Est. Patient 16:05:16 CDT Alina Castaneda MD [facility] CPT-07734 Level 3 Est. Patient 00:29:15 CDT Alnia Castaneda MD [facility] CPT-75134 Level 3 Est. Patient 10:49:22 [employer] Marvel Thurstonestela [facility] CPT-33329 Level 3 Est. Patient 21:30:19 [employer] Alina Castaneda MD [facility] CPT-18937 Level 4 Est. Patient 17:04:11 [employer] [facility]66112 Level 3 Est. Patient 15:34:11 [employer] [facility] CPT-04430 Level 2 Est. Patient 12:51:58 [employer] Alina Castaneda MD [facility] CPT-53600 Level 3 Est. Patient 13:20:01 [employer] Alina Castaneda MD [facility] CPT-44741 Level 3 Est. Patient 09:23:35 CDT Alina Castaneda MD [facility] Procedures Code Procedure Name Date Entry Date Standard Description CPT-G0439 [facility] Annual Wellness Exam 15:49:52 [employer] CPT-78395 Level 3 Jail 13:20:19 CDT CPT-TCMM Transitional Care Mgmt-Moderate 12:32:19 CDT CPT-61299 Level 2 Jail 09:01:11 CDT CPT-25310 HGBA1C - LAB USE ONLY 09:30:27 [employer] CPT-24540 BMP - LAB USE ONLY 09:30:27 [employer] CPT-03105 Venipuncture Draw Fee 09:30:26 [employer] CPT-TCMM Transitional Care Mgmt-Moderate 10:25:31 CDT CPT-70954 Bladder Scan 14:34:53 CDT CPT-98482 Bladder Scan 14:39:01 [employer] CPT-TCMM Transitional Care Mgmt-Moderate 10:30:19 [employer] CPT-35252 Bladder Scan 12:36:44 CDT CPT-70385 Bladder Scan 21:54:06 CDT CPT-G0008 Administration of Influenza Virus Vaccine 13:05:26 CDT CPT-29703 Fluzone Quadrivalent Intramuscular Suspension 0.5 ML 13: 05:26 CDT CPT-93656 Administration single or combination vaccine inc oral 11 :49:51 CDT CPT-95781 Pneumovax 11:49:51 CDT CPT-95390 Ribs unilateral 2V 12:37:22 [employer] CPT-67113 Chest 2V Frontal and Lat 17:15:26 CDT CPT-37900 Abx/Therapy Injection 18:54:02 CDT CPT-J0696 Rocephin 1000 mg (Ceftriaxone) 16:00:32 CDT CPT-20583 Chest 2V Frontal and Lat 15:26:45 CDT CPT-42740 Chest 2V Frontal and Lat 10:23:27 CDT CPT-08857 Venipuncture Draw Fee 10:11:00 CDT CPT-97962 Administration single or combination vaccine inc oral 11 :56:38 CDT CPT-11149 Influenza split virus > age 3 11:56:38 CDT CPT-23325 Venipuncture Draw Fee 08:49:54 [employer] CPT-28771 EKG Trac and Interp 17:54:19 [employer]
--- OUTSIDE RECORDS SUMMARY | 2018-07-02 12:30 | XMS REPORT | Clinical Summary ---
Author Author Admin, MIKEE Organization [facility] [place] Address Unknown Phone Unavailable Allergies, Adverse Reactions, 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 Erazo PASTRYCOOK'S ASSISTANT Benign paroxysmal positional vertigo Vertigo, benign paroxysmal position 386.11 Inactive Mima Erazo PASTRYCOOK'S ASSISTANT Benign paroxysmal positional vertigo High-risk sexual behavior [...] 04/06 Malaise and fatigue ICD-780.79 Inactive Mason Loerdo MD Diarrhea ICD-787.91 Inactive Mason Loredo MD [...] EXTENDED RELEASE 1 tab BID VERAPAMIL HCL 14715251786 Active Shavonne Feliciano PA-C Active SEROQUEL 25 MG ORAL TABLET Take two tabs by mouth in the morning, take 4 tablets at night QUETIAPINE FUMARATE 78443270653 No Longer Active Shavonne Feliciano PA-C Active EFFEXOR XR 150 MG ORAL CAPSULE EXTENDED RELEASE 24 HOUR 1 tab daily VENLAFAXINE HCL 29988601466 Active Shavonne Feliciano PA-C Active QUETIAPINE FUMARATE 25 MG ORAL TABLET 2 tabs BID QUETIAPINE FUMARATE 24923429475 Active Shavonne Feliciano PA-C Active QUETIAPINE FUMARATE 100 MG ORAL TABLET 1 tab PO at HS QUETIAPINE FUMARATE 30413853237 Active Shavonne Feliciano PA-C Active AMARYL 2 MG ORAL TABLET give 2.5 tabs PO daily GLIMEPIRIDE 87823835920 No Longer Active Shavonne Feliciano PA-C Active AMARYL 2 MG ORAL TABLET give 2 tabs PO in the morning GLIMEPIRIDE 78118517951 Active Shavonne Feliciano PA-C Active FENOFIBRATE 145 MG ORAL TABLET 1 tab PO in the morning FENOFIBRATE 12315550213 Active Shavonne Feliciano PA-C Active SEROQUEL 100 MG ORAL TABLET 1 tab daily QUETIAPINE FUMARATE 65515133934 No Longer Active Shavonne Feliciano PA-C Active [facility] MELATONIN 3 MG ORAL TABLET give 1 tab by mouth at HS MELATONIN 47913305017 No Longer Active Gabrielle Marquez MA Active NOVOLOG FLEXPEN 100 UNIT/ML SUBCUTANEOUS SOLUTION PEN-INJECTOR sliding scale INSULIN ASPART 17764051094 Active Gabrielle Marquez MA Active METFORMIN HCL 1000 MG ORAL TABLET 1 tab by mouth BID METFORMIN HCL 69986329379 Active Gabrielle Marquez MA Active [facility] MELATONIN 3 MG ORAL TABLET 1 tab nightly MELATONIN 20875388026 Active Gabrielle Marquez MA Active TAMSULOSIN HCL 0.4 MG ORAL CAPSULE give 2 capsules PO each evening TAMSULOSIN HCL 56388253029 No Longer Active Gabrielle Marquez MA Active VITAMIN D 2000 UNIT ORAL CAPSULE Take one by mouth daily CHOLECALCIFEROL 62815721700 No Longer Active Gabrielle Marquez MA Active LATUDA 40 MG ORAL TABLET 1.5 tab by mouth in the afternoon LURASIDONE HCL 20894703157 Active Gabrielle Marquez MA Active LEVEMIR 100 UNIT/ML SUBCUTANEOUS SOLUTION 10 u at bedtime INSULIN DETEMIR 51457115836 Active Gabrielle Marquez MA Active TAMSULOSIN HCL 0.4 MG ORAL CAPSULE 2 every night for urine flow TAMSULOSIN HCL 27446294184 Active Gabrielle Marquez MA Active DIVALPROEX SODIUM 125 MG ORAL TABLET DELAYED RELEASE 1 tab each morning 02/17 DIVALPROEX SODIUM 36698447697 Active Gabrielle Marquez MA Active D 1000 TABLET 2 tab by mouth BID CHOLECALCIFEROL TABS 02983184984 Active Gabrielle Marquez MA Active ALIGN 4 MG ORAL CAPSULE 1 tab at hs PROBIOTIC PRODUCT 89491871053 Active Gabrielle Marquez MA Active CLONAZEPAM 1 MG ORAL TABLET 1 pill by mouth two times daily CLONAZEPAM 82504946405 Active Gabrielle Marquez MA Active OCEAN NASAL SPRAY SOLUTION 2 sprays in both nostrils every 8 hours as needed for dry mucous membranes SALINE SOLN 72930296747 Active Maosn Loredo MD Active BETHANECHOL CHLORIDE 25 MG ORAL TABLET Take 1 tablet mouth four times a day BETHANECHOL CHLORIDE 67111113103 Active Mason Loredo MD Active [facility] LUBRICANT EYE DROPS 0.4-0.3 % OPHTHALMIC SOLUTION POLYETHYL GLYCOL-PROPYL GLYCOL 89664943781 No Longer Active Mason Loredo MD Active TYLENOL 8 HOUR 650 MG ORAL TABLET EXTENDED RELEASE 1 tab QID prn ACETAMINOPHEN 99542749586 No Longer Active Mason Loredo MD Active TOPAMAX 25 MG ORAL TABLET 1 tab BID PRN TOPIRAMATE 14540129070 Active Mason Loredo MD Active TIMOPTIC OCUDOSE 0.5 % OPHTHALMIC SOLUTION instill one drop into both eyes q12H TIMOLOL MALEATE 34194083371 Active Mason Loredo MD Active TRAZODONE HCL 100 MG ORAL TABLET 1 every night to prevent headaches TRAZODONE HCL 56229820196 No Longer Active Mason Loredo MD Active TRAVATAN Z 0.004 % OPHTHALMIC SOLUTION 1 drop each eye daily 2017 TRAVOPROST 65735581529 No Longer Active Mason Loredo MD Active LATUDA 60 MG ORAL TABLET 1 tab daily LURASIDONE HCL 56208927473 No Longer Active Mason Loredo MD Active MORPHINE SULFATE ER 30 MG ORAL TABLET EXTENDED RELEASE Take one capsule BID MORPHINE SULFATE 36882386747 No Longer Active Mason Loredo MD Active TRUE METRIX BLOOD GLUCOSE TEST IN VITRO STRIP Check blood sugars 3x/day. 2015 GLUCOSE BLOOD 93272322375 No Longer Active Mason Loredo MD Active TRUEPLUS LANCETS 30G 3x a day LANCETS 95000899050 No Longer Active Mason Loredo MD Active MYLANTA GAS RELIEF MAXIMUM STR 125 MG ORAL CAPSULE 30cc every 4 hours prn SIMETHICONE 53940202638 No Longer Active Mason Loredo MD Active IMODIUM A-D 2 MG ORAL TABLET 1 tab QID as needed LOPERAMIDE HCL 40449879197 No Longer Active Mason Loredo MD Active FLONASE ALLERGY RELIEF 50 MCG/ACT NASAL SUSPENSION One spray each nostril BID x 1 week then daily FLUTICASONE PROPIONATE 81846629006 No Longer Active Mason Loredo MD Active FLUVOXAMINE MALEATE 100 MG ORAL TABLET take one tab every AM et HS, and take 1 /2 tab at noon FLUVOXAMINE MALEATE 35947225395 No Longer Active Mason Loredo MD Active BD PEN NEEDLE MINI U/F 31G X 5 MM 4 a day INSULIN PEN NEEDLE 75378935485 No Longer Active Mason Loredo MD Active AMITIZA 24 MCG ORAL CAPSULE Take one capsule BID for constipation LUBIPROSTONE 31768706096 No Longer Active Mason Loredo MD Active TRUEPLUS LANCETS 30G 3 a day LANCETS 34442177314 No Longer Active Mason Loredo MD Active CORICIDIN HBP CONGESTION/COUGH 10-200 MG ORAL CAPSULE Take as directed on box as needed for cold/flu symptoms DEXTROMETHORPHAN- GUAIFENESIN 02294023001 No Longer Active Mason Loredo MD Active OMEGA-3 300 MG ORAL CAPSULE 4 caps by mouth daily OMEGA-3 FATTY ACIDS 31821953900 No Longer Active Mason Loredo MD Active HUMALOG KWIKPEN 100 UNIT/ML SUBCUTANEOUS SOLUTION PEN-INJECTOR sliding scale if needed INSULIN LISPRO (HUMAN) 13627367111 No Longer Active Mason Loredo MD Active TRUETEST TEST IN VITRO STRIP check blood sugars 3x/day GLUCOSE BLOOD 03849389444 No Longer Active Mason Loredo MD Active ALFUZOSIN HCL ER 10 MG ORAL TABLET EXTENDED RELEASE 24 HOUR 1 tablet daily ALFUZOSIN HCL 96947900984 No Longer Active Mason Loredo MD Active BD INSULIN SYRINGE 28G X 1/2" 1 ML 1 four times per day INSULIN SYRINGE-NEEDLE U-100 93439412660 No Longer Active Mason Loredo MD Active LEVEMIR FLEXTOUCH 100 UNIT/ML SUBCUTANEOUS SOLUTION PEN-INJECTOR 60 units SQ each evening, for diabetes INSULIN DETEMIR 46588926586 No Longer Active Mason Loredo MD Active LACTULOSE 20 GM/30ML ORAL SOLUTION give 30 Ml PO BID PRN LACTULOSE 94499095757 Active Mason Loredo MD Active COLACE 100 MG ORAL CAPSULE 1 tab BID PRN DOCUSATE SODIUM 71256070965 Active Mason Loredo MD Active LATANOPROST 0.005 % OPHTHALMIC SOLUTION instill 1 drop in both eyes at bed time LATANOPROST 51346647533 Active Mason Loredo MD Active MIRALAX ORAL POWDER 17g by mouth q12h, for constipation POLYETHYLENE GLYCOL 3350 04348126735 Active Mason Loredo MD Active IBUPROFEN 400 MG ORAL TABLET 1 tab Q6H PRN IBUPROFEN 96599842122 Active Mason Loredo MD Active FLUVOXAMINE MALEATE 50 MG ORAL TABLET 1 tab by mouth daily 04/01 FLUVOXAMINE MALEATE 40470084308 No Longer Active Mima Erazo APRN Active TRUE METRIX METER w/Device KIT Check blood sugars 3x/day BLOOD GLUCOSE MONITORING SUPPL 37684674239 Active Marvel Mackenzieglari AIRCRAFT DESIGNER Active LATUDA 60 MG ORAL TABLET Take one by mouth daily LURASIDONE HCL 54446267947 No Longer Active Mima Erazo APRN Active [facility] MILK OF MAGNESIA 400 MG/5ML ORAL SUSPENSION 30ml by mouth bid prn MAGNESIUM HYDROXIDE 92685056086 Active Mason Loredo MD Active TRAVATAN Z 0.004 % OPHTHALMIC SOLUTION 1 gtt each eye daily TRAVOPROST 01353180657 No Longer Active Mason Loredo MD Active LISINOPRIL 20 MG ORAL TABLET 1 BID LISINOPRIL 10204059963 No Longer Active Mason Loredo MD Active ZOLPIDEM TARTRATE 10 MG ORAL TABLET take at bedtime ZOLPIDEM TARTRATE 06193409669 No Longer Active Mason Loredo MD Active HYDROCODONE-ACETAMINOPHEN 5-325 MG ORAL TABLET 2 tabs by mouth three times daily for pain HYDROCODONE-ACETAMINOPHEN 64659360796 No Longer Active Mason Loredo MD Active ZOFRAN 4 MG ORAL TABLET 1 po q4hr PRN Nausea ONDANSETRON HCL 81155811217 No Longer Active Mason Loredo MD Active LOMOTIL 2.5-0.025 MG ORAL TABLET take 1-2 tabs PO after each stool, no more than 8 in 24 hours DIPHENOXYLATE-ATROPINE 66759496402 No Longer Active Mason Loredo MD Active COLACE 100 MG ORAL CAPSULE 1 pill by mouth twice daily, for constipation 2014 DOCUSATE SODIUM 72660110232 No Longer Active Mima Yokum PASTRYCOOK'S ASSISTANT Active TOLTERODINE TARTRATE 2 MG ORAL TABLET 1 pill twice daily, for bladder TOLTERODINE TARTRATE 80346388579 No Longer Active Vanessa Hickey MD Active AMITIZA 24 MCG ORAL CAPSULE Take one capsule BID for constipation. LUBIPROSTONE 46322284712 No Longer Active Vanessa Hickey MD Active METOPROLOL SUCCINATE ER 100 MG ORAL TABLET EXTENDED RELEASE 24 HOUR 1 by mouth daily for blood pressure METOPROLOL SUCCINATE 66070628612 No Longer Active Grace Nelsonb RMA Active METFORMIN HCL ER 500 MG ORAL TABLET EXTENDED RELEASE 24 HOUR Take three tablets by mouth everyday METFORMIN HCL 51063687637 No Longer Active Grace Azam RMA Active LOVAZA 1 GM ORAL CAPSULE 4 daily (for triglycerides) [id number] ETHYL ESTERS 49434617660 No Longer Active Grace Azam RMA Active TRAZODONE HCL 100 MG ORAL TABLET 1 tab by mouth for sleep TRAZODONE HCL 70740811829 No Longer Active Grace Azam RMA Active NOVOFINE 32G X 6 MM use one four times per day INSULIN PEN NEEDLE 58585867244 No Longer Active Grace Azam RMA Active BACTROBAN 2 % EXTERNAL CREAM Apply to affected area BID for up to 10 days MUPIROCIN CALCIUM 16551286082 No Longer Active Grace Azam RMA Active KEFLEX 500 MG ORAL CAPSULE 1 po BID x 7 days CEPHALEXIN 64535658297 No Longer Active Cherelle Avila PASTRYCOOK'S ASSISTANT Active FLUVOXAMINE MALEATE 100 MG ORAL TABLET Take one (1) tablet by mouth am, 1/2 at noon FLUVOXAMINE MALEATE 24721520555 No Longer Active Mima Erazo PASTRYCOOK'S ASSISTANT Active FLUVOXAMINE MALEATE 100 MG ORAL TABLET Take 1/2 tab at noon 03/04 FLUVOXAMINE MALEATE 25465407237 No Longer Active Cherelle Avila PASTRYCOOK'S ASSISTANT Active ACCU-CHEK ROSA DEVICE Use device to check blood sugars BLOOD GLUCOSE MONITORING SUPPL 11462709289 No Longer Active Brooksjohn MARROQUIN Active ACCU-CHEK ROSA IN VITRO STRIP use strips with device to check blood sugars 3 times daily GLUCOSE BLOOD 16893233475 No Longer Active Brooksjohn MARROQUIN Active VERAPAMIL HCL ER 180 MG ORAL TABLET EXTENDED RELEASE 1 pill by mouth twice daily, for migraine prevention VERAPAMIL HCL 67677971964 Active Mima Erazo PASTRYCOOK'S ASSISTANT Active CYCLOBENZAPRINE HCL 10 MG ORAL TABLET 1 tablet by mouth three times daily, scheduled CYCLOBENZAPRINE HCL 74165280905 No Longer Active Alina Castaneda MD PhD Active HUMALOG 100 UNIT/ML SUBCUTANEOUS SOLUTION Take 20 units with breakfast, 10u with lunch and suppetr. INSULIN LISPRO (HUMAN) 77577702676 No Longer Active Alina Castaneda MD PhD Active TRUETEST TEST IN VITRO STRIP check sugars 4x/day GLUCOSE BLOOD 81096522451 No Longer Active Alina Castaneda MD PhD Active MORPHINE SULFATE 30 MG ORAL TABLET 1 pill by mouth twice daily, for pain 2013 MORPHINE SULFATE 21665932138 No Longer Active Mason Loredo MD Active ACYCLOVIR 400 MG ORAL TABLET 1 pill three times daily x 5 days, for cold sore outbreak ACYCLOVIR 49783580240 No Longer Active Alina Castaneda MD PhD Active PENICILLIN V POTASSIUM 500 MG ORAL TABLET 1 pill by mouth three times daily PENICILLIN V POTASSIUM 16971270367 No Longer Active Alina Castaneda MD PhD Active UROXATRAL 10 MG ORAL TABLET EXTENDED RELEASE 24 HOUR Take 1 tablet by mouth daily ALFUZOSIN HCL 50475346388 No Longer Active Alina Castaneda MD PhD Active THIOTHIXENE 5 MG ORAL CAPSULE by mouth twice a day THIOTHIXENE 72599033132 No Longer Active Alina Castaneda MD PhD Active ZYPREXA 7.5 MG ORAL TABLET 1 at HS OLANZAPINE 79291476532 No Longer Active Alina Castaneda MD PhD Active DETROL LA 4 MG ORAL CAPSULE EXTENDED RELEASE 24 HOUR Take 1 tablet by mouth daily TOLTERODINE TARTRATE 81272503102 No Longer Active Alina Castaneda MD PhD Active TERESE CONTOUR TEST IN VITRO STRIP monitor blood sugars 3x/day GLUCOSE BLOOD 71438322657 No Longer Active Alina Castaneda MD PhD Active EQL TRUETEST TEST IN VITRO STRIP Test blood sugar TID GLUCOSE BLOOD 62769534982 No Longer Active Alina Castaneda MD PhD Active FLUTICASONE PROPIONATE 50 MCG/ACT NASAL SUSPENSION 2 sprays each nostril qDay x 30 days FLUTICASONE PROPIONATE 32134261924 No Longer Active Alina Castaneda MD PhD Active IBUPROFEN 200 MG ORAL TABLET 1 Q 6 hr. PRN IBUPROFEN 83918857375 No Longer Active Alina Castaneda MD PhD Active NIACIN ER 500 MG ORAL TABLET EXTENDED RELEASE 4 qHS (for triglycerides) 01/13 NIACIN 04487478181 No Longer Active Alina Castaneda MD PhD Active SAPHRIS 5 MG SUBLINGUAL TABLET SUBLINGUAL by mouth twice a day ASENAPINE MALEATE 18270870950 No Longer Active Marvel MARROQUIN Active ACETAMINOPHEN 500 MG ORAL TABLET 2 Q 6 hr. PRN ACETAMINOPHEN 02508844749 No Longer Active Maljohn Ziglari LOPEZ Active ORPHENADRINE CITRATE ER 100 MG ORAL TABLET EXTENDED RELEASE 12 HOUR 1 every 12 hr. as needed ORPHENADRINE CITRATE 61940310437 No Longer Active Alina Castaneda MD PhD Active NIACIN ER 500 MG ORAL TABLET EXTENDED RELEASE 2 qHS NIACIN 14745459433 No Longer Active Alina Castaneda MD PhD Active AMOXICILLIN 500 MG ORAL CAPSULE 2 po BID x 10 days AMOXICILLIN 55647558611 No Longer Active Alina Castaneda MD PhD Active HYDROCODONE-ACETAMINOPHEN 7.5-325 MG ORAL TABLET 1 four times a day as needed for pain HYDROCODONE-ACETAMINOPHEN 76443291001 No Longer Active Alina Castaneda MD PhD Active DOXEPIN HCL 10 MG ORAL CAPSULE Take 1 tablet by mouth daily DOXEPIN HCL 81580658483 No Longer Active Salina Han A Active NAVANE 10 MG CAPS 1/2 tablet twice a day THIOTHIXENE No Longer Active Salina ROBBINSA Active CYCLOBENZAPRINE HCL 10 MG ORAL TABLET 1/2 tablet by mouth every 8 hours as needed for muscle spasms CYCLOBENZAPRINE HCL 32169628287 No Longer Active Alina Castaneda MD PhD Active BACTROBAN 2 % EXTERNAL CREAM apply to ear and nose twice daily MUPIROCIN CALCIUM 66930517422 No Longer Active Alina Castaneda MD PhD Active HYDROCODONE-ACETAMINOPHEN 5-325 MG ORAL TABLET take one tablet by mouth every four hours as needed for pain HYDROCODONE-ACETAMINOPHEN 86174119346 No Longer Active Alina Castaneda MD PhD Active ZYPREXA 5 MG ORAL TABLET take one tablet by mouth every evening OLANZAPINE 75636316993 No Longer Active Alina Castaneda MD PhD Active ALBUTEROL SULFATE (2.5 MG/3ML) 0.083% INHALATION NEBULIZATION SOLUTION one vial per nebulizer TID and PRN cough/soa ALBUTEROL SULFATE 65616448433 No Longer Active Alina Castaneda MD PhD Active GUAIFENESIN ER 600 MG ORAL TABLET EXTENDED RELEASE 12 HOUR 1 tablet by mouth twice daily if needed for cough GUAIFENESIN 39719571833 No Longer Active Marvel MARROQUIN Active AZITHROMYCIN 500 MG INTRAVENOUS SOLUTION RECONSTITUTED 1 po q day AZITHROMYCIN 05152038318 No Longer Active Alina Castaneda MD PhD Active PROMETHAZINE-CODEINE 6.25-10 MG/5ML ORAL SYRUP 1 tsp po q 6 hours prn cough PROMETHAZINE-CODEINE 01928589657 No Longer Active Alina Castaneda MD PhD Active CEFDINIR 300 MG ORAL CAPSULE by mouth twice a day CEFDINIR 28775939902 No Longer Active Alina Castaneda MD PhD Active METFORMIN HCL ER 500 MG ORAL TABLET EXTENDED RELEASE 24 HOUR Take 3 tablets by mouth everyday METFORMIN HCL 34088168197 No Longer Active Alina Castaneda MD PhD Active LEVEMIR 100 UNIT/ML SUBCUTANEOUS SOLUTION 90 units SQ qHS INSULIN DETEMIR 49200291469 No Longer Active Marvel MARROQUIN Active TOPROL XL 100 MG ORAL TABLET EXTENDED RELEASE 24 HOUR 1 @ HS METOPROLOL SUCCINATE 72202403494 No Longer Active Marvel MARROQUIN Active ALLOPURINOL 300 MG ORAL TABLET Take one by mouth daily ALLOPURINOL 34570686804 Active Mima Erazo PASTRYCOOK'S ASSISTANT Active ZYPREXA 10 MG ORAL TABLET Take one by mouth daily OLANZAPINE 72060840816 No Longer Active Alina Castaneda MD PhD Active NOVOLOG 100 UNIT/ML SUBCUTANEOUS SOLUTION 40 units with every meal INSULIN ASPART 88525785996 No Longer Active Alina Castaneda MD PhD Active VERAPAMIL HCL ER 120 MG ORAL TABLET EXTENDED RELEASE 1 qPM 09/08 VERAPAMIL HCL 00273750457 No Longer Active Salina ROJAS Active ZYPREXA 15 MG ORAL TABLET Take 1 tablet by mouth daily OLANZAPINE 60664232537 No Longer Active Marvel MARROQUIN Active ALBUTEROL SULFATE (2.5 MG/3ML) 0.083% INHALATION NEBULIZATION SOLUTION 1 neb tid and prn cough ALBUTEROL SULFATE 08345572659 No Longer Active Alina Castaneda MD PhD Active LANTUS 100 UNIT/ML SUBCUTANEOUS SOLUTION 60 units sq q hs INSULIN GLARGINE 22174416698 No Longer Active CRYSTAL Suarez Active ALBUTEROL SULFATE (2.5 MG/3ML) 0.083% INHALATION NEBULIZATION SOLUTION 1 neb tid and prn cough ALBUTEROL SULFATE (2.5 MG/3ML) 0.083% INHALATION NEBULIZATION SOLUTION 365299 ALBUTEROL SULFATE Inactive ZYPREXA 15 MG ORAL TABLET Take 1 tablet by mouth daily ZYPREXA 15 MG ORAL TABLET 626019 OLANZAPINE Inactive VERAPAMIL HCL ER 120 MG ORAL TABLET EXTENDED RELEASE 1 qPM 09/08 VERAPAMIL HCL ER 120 MG ORAL TABLET EXTENDED RELEASE VERAPAMIL HCL Inactive ZYPREXA 10 MG ORAL TABLET Take one by mouth daily ZYPREXA 10 MG ORAL TABLET 680622 OLANZAPINE Inactive TOPROL XL 100 MG ORAL TABLET EXTENDED RELEASE 24 HOUR 1 @ HS TOPROL XL 100 MG ORAL TABLET EXTENDED RELEASE 24 HOUR METOPROLOL SUCCINATE Inactive LEVEMIR 100 UNIT/ML SUBCUTANEOUS SOLUTION 90 units SQ qHS LEVEMIR 100 UNIT/ML SUBCUTANEOUS SOLUTION INSULIN DETEMIR Inactive PROMETHAZINE-CODEINE 6.25-10 MG/5ML ORAL SYRUP 1 tsp po q 6 hours prn cough PROMETHAZINE-CODEINE 6.25-10 MG/5ML ORAL SYRUP 652250 PROMETHAZINE-CODEINE Inactive GUAIFENESIN ER 600 MG ORAL TABLET EXTENDED RELEASE 12 HOUR 1 tablet by mouth twice daily if needed for cough GUAIFENESIN ER 600 MG ORAL TABLET EXTENDED RELEASE 12 HOUR GUAIFENESIN Inactive ALBUTEROL SULFATE (2.5 MG/3ML) 0.083% INHALATION NEBULIZATION SOLUTION one vial per nebulizer TID and PRN cough/soa ALBUTEROL SULFATE (2.5 MG/3ML) 0.083% INHALATION NEBULIZATION SOLUTION 581686 ALBUTEROL SULFATE Inactive ZYPREXA 5 MG ORAL TABLET take one tablet by mouth every evening ZYPREXA 5 MG ORAL TABLET 340770 OLANZAPINE Inactive HYDROCODONE-ACETAMINOPHEN 5-325 MG ORAL TABLET take one tablet by mouth every four hours as needed for pain HYDROCODONE-ACETAMINOPHEN 5-325 MG ORAL TABLET 696907 HYDROCODONE-ACETAMINOPHEN Inactive BACTROBAN 2 % EXTERNAL CREAM apply to ear and nose twice daily BACTROBAN 2 % EXTERNAL CREAM 971617 MUPIROCIN CALCIUM Inactive CYCLOBENZAPRINE HCL 10 MG ORAL TABLET 1/2 tablet by mouth every 8 hours as needed for muscle spasms CYCLOBENZAPRINE HCL 10 MG ORAL TABLET 861018 CYCLOBENZAPRINE HCL Inactive NAVANE 10 MG CAPS 1/2 tablet twice a day NAVANE 10 MG CAPS THIOTHIXENE Inactive DOXEPIN HCL 10 MG ORAL CAPSULE Take 1 tablet by mouth daily DOXEPIN HCL 10 MG ORAL CAPSULE 9453133 DOXEPIN HCL Inactive HYDROCODONE-ACETAMINOPHEN 7.5-325 MG ORAL TABLET 1 four times a day as needed for pain HYDROCODONE-ACETAMINOPHEN 7.5-325 MG ORAL TABLET 223483 HYDROCODONE-ACETAMINOPHEN Inactive NIACIN ER 500 MG ORAL [...] hr. PRN ACETAMINOPHEN 500 MG ORAL TABLET 919699 ACETAMINOPHEN Inactive SAPHRIS 5 MG SUBLINGUAL TABLET SUBLINGUAL by mouth twice a day SAPHRIS 5 MG SUBLINGUAL TABLET SUBLINGUAL ASENAPINE MALEATE Inactive NIACIN ER 500 MG ORAL TABLET EXTENDED RELEASE 4 qHS (for triglycerides) 01/13 NIACIN ER 500 MG ORAL TABLET EXTENDED RELEASE NIACIN Inactive IBUPROFEN 200 MG ORAL TABLET 1 Q 6 hr. PRN IBUPROFEN 200 MG ORAL TABLET 879110 IBUPROFEN Inactive FLUTICASONE PROPIONATE 50 MCG/ACT NASAL SUSPENSION 2 sprays each nostril qDay x 30 days FLUTICASONE PROPIONATE 50 MCG/ACT NASAL SUSPENSION 8786240 FLUTICASONE PROPIONATE Inactive EQL TRUETEST TEST IN [...] at HS ZYPREXA 7.5 MG ORAL TABLET 760866 OLANZAPINE Inactive THIOTHIXENE 5 MG ORAL CAPSULE by mouth twice a day THIOTHIXENE 5 MG ORAL CAPSULE 686163 THIOTHIXENE Inactive UROXATRAL 10 MG ORAL TABLET EXTENDED RELEASE 24 HOUR Take 1 tablet by mouth daily UROXATRAL 10 MG ORAL TABLET EXTENDED RELEASE 24 HOUR ALFUZOSIN HCL Inactive ACYCLOVIR 400 MG ORAL TABLET 1 pill three times daily x 5 days, for cold sore outbreak ACYCLOVIR 400 MG ORAL TABLET 293750 ACYCLOVIR Inactive TRUETEST TEST IN VITRO STRIP check sugars 4x/day TRUETEST TEST IN VITRO STRIP GLUCOSE BLOOD Inactive HUMALOG 100 UNIT/ML SUBCUTANEOUS SOLUTION Take 20 units with breakfast, 10u with lunch and suppetr. HUMALOG 100 UNIT/ML SUBCUTANEOUS SOLUTION INSULIN LISPRO (HUMAN) Inactive CYCLOBENZAPRINE HCL 10 MG ORAL TABLET 1 tablet by mouth three times daily, scheduled CYCLOBENZAPRINE HCL 10 MG ORAL TABLET 368712 CYCLOBENZAPRINE HCL Inactive ACCU-CHEK ROSA IN VITRO STRIP use strips with device to check blood sugars 3 times daily ACCU-CHEK ROSA IN VITRO STRIP GLUCOSE BLOOD Inactive ACCU-CHEK ROSA DEVICE Use device to check blood sugars ACCU-CHEK ROSA DEVICE BLOOD GLUCOSE MONITORING SUPPL Inactive FLUVOXAMINE MALEATE 100 MG ORAL TABLET Take 1/2 tab at noon 03/04 FLUVOXAMINE MALEATE 100 MG ORAL TABLET 130811 FLUVOXAMINE MALEATE Inactive FLUVOXAMINE MALEATE 100 MG ORAL TABLET Take one (1) tablet by mouth am, 1/2 at noon FLUVOXAMINE MALEATE 100 MG ORAL TABLET 709343 FLUVOXAMINE MALEATE Inactive BACTROBAN 2 % EXTERNAL CREAM Apply to affected area BID for up to 10 days BACTROBAN 2 % EXTERNAL CREAM 902800 MUPIROCIN CALCIUM Inactive NOVOFINE 32G X 6 MM use one four times per day NOVOFINE 32G X 6 MM INSULIN PEN NEEDLE Inactive TRAZODONE HCL 100 MG ORAL TABLET 1 tab by mouth for sleep TRAZODONE HCL 100 MG ORAL TABLET 265836 TRAZODONE HCL Inactive LOVAZA 1 GM ORAL CAPSULE 4 daily (for triglycerides) LOVAZA 1 GM ORAL CAPSULE 865412 [id number] ETHYL ESTERS Inactive METFORMIN HCL ER 500 [...] bladder TOLTERODINE TARTRATE 2 MG ORAL TABLET 466225 TOLTERODINE TARTRATE Inactive COLACE 100 MG ORAL CAPSULE 1 pill by mouth twice daily, for constipation 2014 COLACE 100 MG ORAL CAPSULE 7375074 DOCUSATE SODIUM Inactive LOMOTIL 2.5-0.025 MG ORAL TABLET take 1-2 tabs PO after each stool, no more than 8 in 24 hours LOMOTIL 2.5-0.025 MG ORAL TABLET 6865533 DIPHENOXYLATE-ATROPINE Inactive ZOFRAN 4 MG ORAL TABLET 1 po q4hr PRN Nausea ZOFRAN 4 MG ORAL TABLET 158806 ONDANSETRON HCL Inactive HYDROCODONE-ACETAMINOPHEN 5-325 MG ORAL TABLET 2 tabs by mouth three times daily for pain HYDROCODONE-ACETAMINOPHEN 5-325 MG ORAL TABLET 373376 HYDROCODONE-ACETAMINOPHEN Inactive ZOLPIDEM TARTRATE 10 MG ORAL TABLET take at bedtime ZOLPIDEM TARTRATE 10 MG ORAL TABLET 999251 ZOLPIDEM TARTRATE Inactive LISINOPRIL 20 MG ORAL TABLET 1 BID LISINOPRIL 20 MG ORAL TABLET 852717 LISINOPRIL Inactive TRAVATAN Z 0.004 % OPHTHALMIC SOLUTION 1 gtt each eye daily TRAVATAN Z 0.004 % OPHTHALMIC SOLUTION TRAVOPROST Inactive LATUDA 60 MG ORAL TABLET Take one by mouth daily LATUDA 60 MG ORAL TABLET LURASIDONE HCL Inactive FLUVOXAMINE MALEATE 50 MG ORAL TABLET 1 tab by mouth daily 04/01 FLUVOXAMINE MALEATE 50 MG ORAL TABLET 910012 FLUVOXAMINE MALEATE Inactive LEVEMIR FLEXTOUCH 100 UNIT/ML [...] 30G 3 a day TRUEPLUS LANCETS 30G [id number] LANCETS Inactive AMITIZA 24 MCG ORAL CAPSULE [...] noon FLUVOXAMINE MALEATE 100 MG ORAL TABLET 680143 FLUVOXAMINE MALEATE Inactive FLONASE ALLERGY RELIEF 50 MCG/ACT NASAL SUSPENSION One spray each nostril BID x 1 week then daily FLONASE ALLERGY RELIEF 50 MCG/ACT NASAL SUSPENSION 2010178 FLUTICASONE PROPIONATE Inactive IMODIUM A-D 2 MG ORAL TABLET 1 tab QID as needed IMODIUM A-D 2 MG ORAL TABLET 215828 LOPERAMIDE HCL Inactive MYLANTA GAS RELIEF MAXIMUM STR 125 MG ORAL CAPSULE 30cc every 4 hours prn MYLANTA GAS RELIEF MAXIMUM STR 125 MG ORAL CAPSULE SIMETHICONE Inactive TRUEPLUS LANCETS 30G 3x a day TRUEPLUS LANCETS 30G [id number] LANCETS Inactive TRUE METRIX BLOOD GLUCOSE TEST [...] headaches TRAZODONE HCL 100 MG ORAL TABLET 399782 TRAZODONE HCL Inactive TYLENOL 8 HOUR 650 [...] evening TAMSULOSIN HCL 0.4 MG ORAL CAPSULE 513095 TAMSULOSIN HCL Inactive [facility] MELATONIN 3 MG ORAL TABLET give 1 tab by mouth at HS [facility] MELATONIN 3 MG ORAL TABLET 656419 MELATONIN Inactive SEROQUEL 100 MG ORAL TABLET 1 tab daily SEROQUEL 100 MG ORAL TABLET 242116 QUETIAPINE FUMARATE Inactive AMARYL 2 MG ORAL TABLET give 2.5 tabs PO daily AMARYL 2 MG ORAL TABLET 643079 GLIMEPIRIDE Inactive SEROQUEL 25 MG ORAL TABLET Take two tabs by mouth in the morning, take 4 tablets at night SEROQUEL 25 MG ORAL TABLET 474226 QUETIAPINE FUMARATE Inactive CEFDINIR 300 MG ORAL CAPSULE by mouth twice a day CEFDINIR 300 MG ORAL CAPSULE 324692 CEFDINIR Inactive AZITHROMYCIN 500 MG INTRAVENOUS SOLUTION RECONSTITUTED 1 po q day AZITHROMYCIN 500 MG INTRAVENOUS SOLUTION RECONSTITUTED [id number] AZITHROMYCIN Inactive AMOXICILLIN 500 MG ORAL CAPSULE 2 po BID x 10 days AMOXICILLIN 500 MG ORAL CAPSULE 534872 AMOXICILLIN Inactive PENICILLIN V POTASSIUM 500 MG ORAL TABLET 1 pill by mouth three times daily PENICILLIN V POTASSIUM 500 MG ORAL TABLET 291215 PENICILLIN V POTASSIUM Inactive KEFLEX 500 MG ORAL CAPSULE 1 po BID x 7 days KEFLEX 500 MG ORAL CAPSULE 556086 CEPHALEXIN Inactive Immunizations Vaccine Administration Date Value [...] Fluvirin, Fluarix, Agriflu(>=18 yo)) Fluzone (>3 yrs.) [[id number]] Influenza, seasonal, injectable pneumococcal immunization administered Pneumovax [...] ... - Chemistry sodium, serum 135 mmol/L 582-078 2283/08/22 carbon dioxide, venous blood 28.4 mmol/L 21.0-32.0 [...] mg/g {creat} 0-29 cholesterol, serum 263 mg/dL [phone]/08/22 triglyceride, serum, fasting 1312 mg/dL 30-200 HDL [...] 80 mg/L 0-19 Office Visit: [facility] - Lab PSA (prostate specific antigent), recommendation and action PSA ordered Encounters Code Encounter Date Provider Facility CPT-75876 [id number] Vst-Est Level III 11:00:25 CDT Shavonne Feliciano PA-C [facility]-97503 Level 3 Est. Patient 09:12:14 SYSTEM 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 MANAGER Mima Erazo [facility] [place]-28614 Level 3 Est. Patient 16:52:51 CDT Vanessa Hickey MD [facility]-88188 Level 3 Est. Patient 17:40:16 CDT Mima Erazo [facility] CPT-18896 Level 3 Est. Patient 14:34:52 CDT Vanessa Hickey MD [facility]-01343 Level 3 Est. Patient 16:27:51 CDT Mima Erazo [facility] CPT-26661 Level 3 Est. Patient 14:39:00 SYSTEM 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 MANAGER Vanessa Hickey MD [facility] CPT-50113 Level 2 Est. Patient 18:43:34 CDT Mima Erazo [facility] CPT-40912 Level 3 Est. Patient 16:22:09 CDT Cherelle Avila [facility] CPT-11675 Level 4 Est. Patient 17:55:14 CDT Mima Erazo [facility] CPT-41788 Level 2 Est. Patient 17:13:21 CDT Alina Castaneda MD PhD [facility] CPT-05314 Level 3 Est. Patient 14:46:15 CDT Vanessa Hickey MD [facility] CPT-01705 Level 3 Est. Patient 09:34:56 CDT Alina Castaneda MD [facility]-52950 Level 3 Est. Patient 21:40:19 CDT Mima Erazo ALBAN [facility] CPT-99641 Level 3 Est. Patient 09:26:40 CDT Marvel Charles [facility]-35212 Level 3 Est. Patient 12:36:43 CDT Vanessa Hickey MD [facility]-74819 Level 3 Est. Patient 12:57:49 CDT Vanessa Hickey MD [facility]-31978 Level 3 Est. Patient 00:28:25 CDT Alina Castaneda MD [facility]-15917 Level 2 Est. Patient 12:52:14 CDT Alina Castaneda MD [facility]-51894 Level 3 Est. Patient 11:51:18 SYSTEM 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 MANAGER Alina Castaneda MD [facility]-84676 Level 3 Est. Patient 10:09:22 SYSTEM 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 MANAGER Alina Castaneda MD [facility]-67685 Level 3 Est. Patient 14:36:26 SYSTEM 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 MANAGER Marvel Charles [facility]-29049 Level 3 Est. Patient 13:34:47 SYSTEM 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 MANAGER Alina Castaneda MD [facility]-50196 Level 3 Est. Patient 19:52:08 SYSTEM 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 MANAGER Alina Castaneda MD [facility] CPT-90900 Level 3 Est. Patient 10:01:51 SYSTEM 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 MANAGER Marvel Charles [facility]-18880 Level 3 Est. Patient 21:54:06 CDT Vanessa Hickey MD [facility]-07349 Level 3 Est. Patient 08:54:46 CDT Alina Casatneda MD [facility]-33530 Level 3 Est. Patient 09:32:11 CDT Marvel Thurstonestela [facility]-38985 Level 3 Est. Patient 12:02:49 CDT Alina Castaneda MD [facility]-89357 Level 3 Est. Patient 19:17:33 CDT Alina Castaneda MD PhD Formerly named [facility]03367 Level 3 Est. Patient 13:19:10 CDT Marvel Gurdeepajayestela [facility]-25778 Level 3 Est. Patient 08:20:05 CDT Alina Castaneda MD [facility]99837 Level 3 Est. Patient 15:17:18 CDT Alina Castaneda MD [facility]-22747 Level 3 Est. Patient 14:25:36 SYSTEM 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 MANAGER [facility]68668 Level 3 Est. Patient 10:09:15 SYSTEM 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 MANAGER [facility] [place] Level 3 Est. Patient 21:28:43 CDT Alina Castaneda MD [facility]-48851 Level 3 Est. Patient 15:20:11 CDT Marvel Araceli [facility]-50642 Level 4 Est. Patient 19:08:12 CDT Alina Castaneda MD [facility]71911 Level 3 Est. Patient 15:06:39 CDT Marvel Charles [facility]-34613 Level 4 Est. Patient 17:48:15 CDT Alina Castaneda MD [facility]-32426 Level 3 Est. Patient 14:53:49 CDT Alina Castaneda MD PhD Formerly named [facility]73137 Level 3 Est. Patient 09:35:16 CDT Alina Castaneda MD [facility]-47127 Level 3 Est. Patient 12:23:22 CDT Alina Castaneda MD [facility]-90206 Level 3 Est. Patient 16:19:15 CDT Alina Castaneda MD [facility]-08644 Level 3 Est. Patient 21:39:56 SYSTEM 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 MANAGER Alina Castaneda MD [facility]-49497 Level 4 Est. Patient 14:12:56 SYSTEM 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 MANAGER Alina Castaneda MD [facility]-66239 Level 2 Est. Patient 15:34:57 SYSTEM 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 MANAGER Alina Castaneda MD [facility]-28961 Level 3 Est. Patient 12:17:04 SYSTEM 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 MANAGER Alina Castaneda MD [facility]-26286 Level 3 Est. Patient 09:18:18 SYSTEM 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 MANAGER Marvel Charles [facility]-85647 Level 2 Est. Patient 21:50:24 CDT Alina Castaneda MD [facility]-34557 Level 3 Est. Patient 09:17:28 CDT Marvel Charles [facility]-71863 Level 4 Est. Patient 18:54:02 CDT Alina Castaneda MD [facility]-19076 Level 3 Est. Patient 10:47:10 CDT Alina Castaneda MD [facility]-40167 Level 3 Est. Patient 09:22:20 CDT Marvel Charles [facility]-90335 Level 3 Est. Patient 16:39:43 [facility]90 Level 3 Est. Patient 16:05:16 CDT Alina Castaneda MD [facility] CPT-06683 Level 3 Est. Patient 00:29:15 CDT Alina Castaneda MD [facility] CPT-92994 Level 3 Est. Patient 10:49:22 SYSTEM 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 MANAGER Marvel Thurstonestela [facility] CPT-32238 Level 3 Est. Patient 21:30:19 SYSTEM 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 MANAGER Alina Castaneda MD [facility] CPT-67196 Level 4 Est. Patient 17:04:11 SYSTEM 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 MANAGER [facility]30288 Level 3 Est. Patient 15:34:11 SYSTEM 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 MANAGER [facility] CPT-29679 Level 2 Est. Patient 12:51:58 SYSTEM 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 MANAGER Alina Castaneda MD [facility] CPT-21637 Level 3 Est. Patient 13:20:01 SYSTEM 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 MANAGER Alina Castaneda MD [facility] CPT-65164 Level 3 Est. Patient 09:23:35 CDT Alina Castaneda MD [facility] Procedures Code Procedure Name Date Entry Date Standard Description CPT-G0439 [facility] Annual Wellness Exam 15:49:52 SYSTEM 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 MANAGER CPT-46215 Level 3 Shelter 13:20:19 CDT CPT-TCMM Transitional Care Mgmt-Moderate 12:32:19 CDT CPT-76584 Level 2 Shelter 09:01:11 CDT CPT-02317 HGBA1C - LAB USE ONLY 09:30:27 SYSTEM 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 MANAGER CPT-38620 BMP - LAB USE ONLY 09:30:27 SYSTEM 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 MANAGER CPT-48385 Venipuncture Draw Fee 09:30:26 SYSTEM 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 MANAGER CPT-TCMM Transitional Care Mgmt-Moderate 10:25:31 CDT CPT-83930 Bladder Scan 14:34:53 CDT CPT-05695 Bladder Scan 14:39:01 SYSTEM 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 MANAGER CPT-TCMM Transitional Care Mgmt-Moderate 10:30:19 SYSTEM 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 MANAGER CPT-17511 Bladder Scan 12:36:44 CDT CPT-01322 Bladder Scan 21:54:06 CDT CPT-G0008 Administration of Influenza Virus Vaccine 13:05:26 CDT CPT-42016 Fluzone Quadrivalent Intramuscular Suspension 0.5 ML 13: 05:26 CDT CPT-48743 Administration single or combination vaccine inc oral 11 :49:51 CDT CPT-50706 Pneumovax 11:49:51 CDT CPT-56891 Ribs unilateral 2V 12:37:22 SYSTEM 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 MANAGER CPT-64634 Chest 2V Frontal and Lat 17:15:26 CDT CPT-10463 Abx/Therapy Injection 18:54:02 CDT CPT-J0696 Rocephin 1000 mg (Ceftriaxone) 16:00:32 CDT CPT-97410 Chest 2V Frontal and Lat 15:26:45 CDT CPT-93219 Chest 2V Frontal and Lat 10:23:27 CDT CPT-20415 Venipuncture Draw Fee 10:11:00 CDT CPT-23380 Administration single or combination vaccine inc oral 11 :56:38 CDT CPT-80175 Influenza split virus > age 3 11:56:38 CDT CPT-00745 Venipuncture Draw Fee 08:49:54 SYSTEM 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 MANAGER CPT-06929 EKG Trac and Interp 17:54:19 SYSTEM 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 MANAGER
--- OUTSIDE RECORDS SUMMARY | 2018-07-02 12:32 | XMS REPORT | Clinical Summary ---
Author Author Admin, TERELL Organization [facility] [employer] Address Unknown Phone Unavailable Allergies, Adverse Reactions, [...] without mention of complication ANXIETY DISORDER 300.00 Active Alina Castaneda MD PhD Anxiety state, unspecified DIABETES, TYPE 2 250.00 [...] MD PhD Unspecified chest pain ANEMIA 285.9 Active Alina Castaneda MD PhD Anemia, unspecified REACTIVE AIRWAY DISEASE 493.90 Active Alina Castaneda MD PhD Asthma, unspecified OBSESSIVE-COMPULSIVE DISORDER 300.3 Active Alina Castaneda MD PhD Obsessive-compulsive disorders GLAUCOMA NOS 365.9 Active Alina Castaneda MD PhD Unspecified glaucoma GOUT, UNSPECIFIED 274.9 Active Alina Castaneda MD PhD Gout, unspecified FH STROKE V17.1 Resolved Marvel MARROQUIN Family history of stroke (cerebrovascular) FATIGUE 780.79 Resolved Alina Castaneda MD PhD Other malaise and fatigue DIABETES MELLITUS, TYPE II, UNCONTROLLED 250.02 Resolved Marvel MARROQUIN Diabetes mellitus without mention of complication , type II or unspecified type, uncontrolled PALPITATIONS 785.1 Active Alina Castaneda MD PhD Palpitations UNSPECIFIED TACHYCARDIA 785.0 Resolved Alina Castaneda [...] of skin and subcutaneous tissue HEADACHE 784.0 Active Alina Castaneda MD PhD Headache SINUSITIS, ACUTE 461.9 Resolved Alina Castaneda MD PhD Acute sinusitis, unspecified DIABETIC HYPOGLYCEMIA, TYPE II 250.80 Resolved Marvel MENDOZAP Diabetes mellitus with other specified manifestations, type II or unspecified type, not stated as uncontrolled SUBDURAL HEMATOMA 432.1 Resolved Alina Castaneda MD PhD Subdural hemorrhage Diabetes mellitus, type II, uncontrolled 250.02 Inactive Alina Castaneda MD PhD Diabetes mellitus without mention of complication, type II or unspecified type, uncontrolled 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 Active Alina Castaneda MD PhD Recurrent isolated sleep paralysis SPECIAL SCREENING FOR MALIGNANT NEOPLASM OF PROSTATE V76.44 Resolved Alina Castaneda MD PhD Screening for malignant neoplasms of prostate Hypoglycemia 251.2 Resolved Alina Castaneda MD PhD Hypoglycemia, unspecified Diabetes mellitus, type II 250.00 Active Marvel Thurstonari CAR FERRY CAPTAIN Diabetes mellitus without mention of complication, type II or unspecified type, not stated as uncontrolled Dizziness 780.4 Resolved Alina Castaneda MD PhD Dizziness and giddiness Confusion 298.9 Resolved Alina Castaneda MD PhD Unspecified psychosis INCONTINENCE, URGE 788.31 Active Vanessa Hickey MD Urge incontinence Lower Urinary Tract Symptoms 788.99 Active Vanessa Hickey MD Other symptoms involving urinary system Open wound 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 Erazo [place] Benign paroxysmal positional vertigo Vertigo, benign paroxysmal position 386.11 Inactive Mima Kacey [place] Benign paroxysmal positional vertigo High-risk sexual behavior V69.2 Active Alina Castaneda MD PhD High-risk sexual behavior Erectile dysfunction 302.72 Active Alina Castaneda MD PhD Psychosexual dysfunction with inhibited sexual excitement Constipation 564.00 Active Alina Castaneda MD PhD Constipation, unspecified Skin lesion 709.9 Active Alina Castaneda MD PhD Unspecified disorder of skin and subcutaneous tissue Malaise and fatigue 780.79 Resolved Mason Loredo MD Other malaise and fatigue Diarrhea 787.91 Resolved Mason Loredo MD Diarrhea PHARYNGITIS 462 Resolved Mason Loredo MD Acute pharyngitis Colitis 558.9 Active Mima Jeffliudmila [place] Other and unspecified noninfectious gastroenteritis and colitis Chronic pain - on daily narcotics 338.29 Active Mason Loredo MD Other chronic pain Nocturia Active Vanessa Hickey MD Nocturia Symptom, polydipsia 783.5 Active Vanessa Hickey MD Polydipsia 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 Active Mason Loredo MD Other persistent mental disorders due to conditions classified elsewhere Body Mass Index 31.0-31.9 Adult Active Mason Loredo MD Body Mass Index 31.0-31.9, adult Dysphasia 784.59 Active Mason Loredo MD Other speech disturbance Obesity 278.00 Active Mason Loredo MD Obesity , unspecified Insomnia 780.52 Active Shavonne Feliciano PA-C Insomnia, unspecified Body Mass Index 30.0-30.9 Adult Active Shavonne Feliciano PA-C Body Mass Index 30.0-30.9, adult Weight loss 783.21 Active Shavonne Feliciano PA-C Loss of weight WOUND, OPEN, NOSE ICD-873.20 Inactive Alina Castaneda MD PhD DIABETES, TYPE 2 ICD-250.00 Inactive Alina Castaneda MD PhD HYPERTENSION ICD-401.9 Inactive Alina Castaneda MD PhD URI ICD-465.9 Inactive Alina Castaneda MD PhD CHEST PAIN ICD-786.50 Inactive Alina Castaneda MD PhD FH STROKE ICD-V17.1 Inactive Marvel MARROQUIN FATIGUE ICD-780.79 Inactive Alina Castaneda MD PhD DIABETES MELLITUS, TYPE II, UNCONTROLLED ICD-250.02 Inactive Marvel MARROQUIN UNSPECIFIED TACHYCARDIA ICD-785.0 Inactive Alina Castaneda MD [...] LESION ICD-709.9 Inactive Alina Castaneda MD PhD SINUSITIS, ACUTE ICD-461.9 Inactive Alina Castaneda MD PhD DIABETIC HYPOGLYCEMIA, TYPE II ICD-250.80 Roro 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 Inactive Alina Castaneda MD PhD Diabetes mellitus, type II, uncontrolled ICD-250.02 Inactive Alina Castaneda MD PhD SPECIAL SCREENING FOR MALIGNANT NEOPLASM OF PROSTATE ICD-V76.44 Inactive Alina Castaneda MD PhD Hypoglycemia ICD-251.2 Inactive Alina Castaneda MD PhD Dizziness ICD-780.4 Inactive Alina Castaneda MD PhD Confusion ICD-298.9 Inactive Alina Castaneda MD PhD Open wound of tongue and floor of mouth, uncomplicated ICD-873.64 Inactive Alina Castaneda MD PhD Chest pain, atypical ICD-786.59 Inactive Alina Castaneda MD PhD Chest pain, atypical ICD-786.59 Inactive Alina Castaneda MD PhD Malaise and fatigue ICD-780.79 Inactive Mason Loredo MD Diarrhea ICD-787.91 Inactive Mason Loredo MD PHARYNGITIS ICD-462 Inactive Mason Loredo MD Medication List Medication Instructions Start Date Stop Date Generic Name NDC Status Provider Patient Instruction SEROQUEL 100 MG ORAL TABLET 1 tab daily QUETIAPINE FUMARATE 08537280328 No Longer Active Shavonne Feliciano PA-C Active SEROQUEL 25 MG ORAL TABLET Take two tabs by mouth in the morning, take 4 tablets at night QUETIAPINE FUMARATE 53797472052 Active Shavonne Feliciano PA-C Active [facility] MELATONIN 3 MG ORAL TABLET give 1 tab by mouth at HS MELATONIN 30555760760 No Longer Active Gabrielleadrienne Marquez MA Active NOVOLOG FLEXPEN 100 UNIT/ML SUBCUTANEOUS SOLUTION PEN-INJECTOR sliding scale INSULIN ASPART 19996571895 Active Gabrielle Littleananda NOEL Active METFORMIN HCL 1000 MG ORAL TABLET 1 tab by mouth BID METFORMIN HCL 41216002288 Active Gabrielle Littleananda NOEL Active [facility] MELATONIN 3 MG ORAL TABLET 1 tab nightly MELATONIN 09583838334 Active Gabrielle Littleananda BERT Active TAMSULOSIN HCL 0.4 MG ORAL CAPSULE give 2 capsules PO each evening TAMSULOSIN HCL 22723912051 No Longer Active Gabrielle Littleananda BERT Active VITAMIN D 2000 UNIT ORAL CAPSULE Take one by mouth daily CHOLECALCIFEROL 56569137870 No Longer Active Gabrielle Littleananda BERT Active LATUDA 40 MG ORAL TABLET 1.5 tab by mouth in the afternoon LURASIDONE HCL 27079306155 Active Gabrielle Littleananda BERT Active LEVEMIR 100 UNIT/ML SUBCUTANEOUS SOLUTION 10 u at bedtime INSULIN DETEMIR 60025856528 Active Gabrielle Littleananda BERT Active TAMSULOSIN HCL 0.4 MG ORAL CAPSULE 2 every night for urine flow TAMSULOSIN HCL 91731877870 Active Gabrielle Marquez MA Active DIVALPROEX SODIUM 125 MG ORAL TABLET DELAYED RELEASE 1 tab each morning 02/17 DIVALPROEX SODIUM 90173424711 Active Gabrielle Marquez MA Active D 1000 TABLET 2 tab by mouth BID CHOLECALCIFEROL TABS 83804574190 Active Gabrielle Marquez MA Active ALIGN 4 MG ORAL CAPSULE 1 tab at hs PROBIOTIC PRODUCT 53593737704 Active Gabrielle Marquez MA Active CLONAZEPAM 1 MG ORAL TABLET 1 pill by mouth two times daily CLONAZEPAM 64249063974 Active Gabrielle Marquez MA Active FENOFIBRATE 160 MG ORAL TABLET Take 1 tablet by mouth daily FENOFIBRATE 30207617679 Active Mya Ledezma MA Active OCEAN NASAL SPRAY SOLUTION 2 sprays in both nostrils every 8 hours as needed for dry mucous membranes SALINE SOLN 91203292552 Active Mason Loredo MD Active BETHANECHOL CHLORIDE 25 MG ORAL TABLET Take 1 tablet mouth four times a day BETHANECHOL CHLORIDE 06142569915 Active Mason Loredo MD Active [facility] LUBRICANT EYE DROPS 0.4-0.3 % OPHTHALMIC SOLUTION POLYETHYL GLYCOL-PROPYL GLYCOL 40738232648 No Longer Active Mason Loredo MD Active TYLENOL 8 HOUR 650 MG ORAL TABLET EXTENDED RELEASE 1 tab QID prn ACETAMINOPHEN 34259471332 No Longer Active Mason Loredo MD Active TOPAMAX 25 MG ORAL TABLET 1 tab BID PRN TOPIRAMATE 17184007606 Active Mason Loredo MD Active TIMOPTIC OCUDOSE 0.5 % OPHTHALMIC SOLUTION instill one drop into both eyes q12H TIMOLOL MALEATE 59780204429 Active Mason Loredo MD Active TRAZODONE HCL 100 MG ORAL TABLET 1 every night to prevent headaches TRAZODONE HCL 94787876782 No Longer Active Mason Loredo MD Active TRAVATAN Z 0.004 % OPHTHALMIC SOLUTION 1 drop each eye daily 2017 TRAVOPROST 71720393729 No Longer Active Mason Loredo MD Active LATUDA 60 MG ORAL TABLET 1 tab daily LURASIDONE HCL 61734785161 No Longer Active Mason Loredo MD Active MORPHINE SULFATE ER 30 MG ORAL TABLET EXTENDED RELEASE Take one capsule BID MORPHINE SULFATE 23119264636 No Longer Active Mason Loredo MD Active TRUE METRIX BLOOD GLUCOSE TEST IN VITRO STRIP Check blood sugars 3x/day. 2015 GLUCOSE BLOOD 01135435657 No Longer Active Mason Loredo MD Active TRUEPLUS LANCETS 30G 3x a day LANCETS 77844837540 No Longer Active Mason Loredo MD Active MYLANTA GAS RELIEF MAXIMUM STR 125 MG ORAL CAPSULE 30cc every 4 hours prn SIMETHICONE 27550734839 No Longer Active Mason Loredo MD Active IMODIUM A-D 2 MG ORAL TABLET 1 tab QID as needed LOPERAMIDE HCL 40276164592 No Longer Active Mason Loredo MD Active FLONASE ALLERGY RELIEF 50 MCG/ACT NASAL SUSPENSION One spray each nostril BID x 1 week then daily FLUTICASONE PROPIONATE 99921077898 No Longer Active Mason Loredo MD Active FLUVOXAMINE MALEATE 100 MG ORAL TABLET take one tab every AM et HS, and take 1 /2 tab at noon FLUVOXAMINE MALEATE 41714573249 No Longer Active Mason Loredo MD Active BD PEN NEEDLE MINI U/F 31G X 5 MM 4 a day INSULIN PEN NEEDLE 04735454019 No Longer Active Mason Loredo MD Active AMITIZA 24 MCG ORAL CAPSULE Take one capsule BID for constipation LUBIPROSTONE 13893440006 No Longer Active Mason Loredo MD Active TRUEPLUS LANCETS 30G 3 a day LANCETS 96932979490 No Longer Active Mason Loredo MD Active CORICIDIN HBP CONGESTION/COUGH 10-200 MG ORAL CAPSULE Take as directed on box as needed for cold/flu symptoms DEXTROMETHORPHAN- GUAIFENESIN 83420566030 No Longer Active Mason Loredo MD Active OMEGA-3 300 MG ORAL CAPSULE 4 caps by mouth daily OMEGA-3 FATTY ACIDS 14253195779 No Longer Active Mason Loredo MD Active HUMALOG KWIKPEN 100 UNIT/ML SUBCUTANEOUS SOLUTION PEN-INJECTOR sliding scale if needed INSULIN LISPRO (HUMAN) 07477895244 No Longer Active Mason Loredo MD Active TRUETEST TEST IN VITRO STRIP check blood sugars 3x/day GLUCOSE BLOOD 25364419489 No Longer Active Mason Loredo MD Active ALFUZOSIN HCL ER 10 MG ORAL TABLET EXTENDED RELEASE 24 HOUR 1 tablet daily ALFUZOSIN HCL 97026169861 No Longer Active Mason Loredo MD Active BD INSULIN SYRINGE 28G X 1/2" 1 ML 1 four times per day INSULIN SYRINGE-NEEDLE U-100 24105183378 No Longer Active Mason Loredo MD Active LEVEMIR FLEXTOUCH 100 UNIT/ML SUBCUTANEOUS SOLUTION PEN-INJECTOR 60 units SQ each evening, for diabetes INSULIN DETEMIR 08820514590 No Longer Active Mason Loredo MD Active LACTULOSE 20 GM/30ML ORAL SOLUTION give 30 Ml PO BID PRN LACTULOSE 65379257402 Active Mason Loredo MD Active COLACE 100 MG ORAL CAPSULE 1 tab BID PRN DOCUSATE SODIUM 01476890237 Active Mason Loredo MD Active LATANOPROST 0.005 % OPHTHALMIC SOLUTION instill 1 drop in both eyes at bed time LATANOPROST 21347147868 Active Mason Loredo MD Active AMARYL 2 MG ORAL TABLET give 2.5 tabs PO daily GLIMEPIRIDE 71796305269 Active Mason Loredo MD Active MIRALAX ORAL POWDER 17g by mouth q12h, for constipation POLYETHYLENE GLYCOL 3350 22354391331 Active Mason Loredo MD Active IBUPROFEN 400 MG ORAL TABLET 1 tab Q6H PRN IBUPROFEN 74752568014 Active Mason Loredo MD Active EFFEXOR XR 37.5 MG ORAL CAPSULE EXTENDED RELEASE 24 HOUR Take one by mouth daily VENLAFAXINE HCL 30730689407 Active Mima Erazo APRN Active FLUVOXAMINE MALEATE 50 MG ORAL TABLET 1 tab by mouth daily 04/01 FLUVOXAMINE MALEATE 10790813258 No Longer Active Mima Erazo APRN Active TRUE METRIX METER w/Device KIT Check blood sugars 3x/day BLOOD GLUCOSE MONITORING SUPPL 12604793678 Active Marvel Charles CAR FERRY CAPTAIN Active LATUDA 60 MG ORAL TABLET Take one by mouth daily LURASIDONE HCL 91345413999 No Longer Active Mima Erazo APRN Active [facility] MILK OF MAGNESIA 400 MG/5ML ORAL SUSPENSION 30ml by mouth bid prn MAGNESIUM HYDROXIDE 42029670267 Active Mason Loredo MD Active TRAVATAN Z 0.004 % OPHTHALMIC SOLUTION 1 gtt each eye daily TRAVOPROST 31892239046 No Longer Active Mason Loredo MD Active LISINOPRIL 20 MG ORAL TABLET 1 BID LISINOPRIL 81967740124 No Longer Active Mason Loredo MD Active ZOLPIDEM TARTRATE 10 MG ORAL TABLET take at bedtime ZOLPIDEM TARTRATE 66414895970 No Longer Active Mason Loredo MD Active HYDROCODONE-ACETAMINOPHEN 5-325 MG ORAL TABLET 2 tabs by mouth three times daily for pain HYDROCODONE-ACETAMINOPHEN 56850835784 No Longer Active Mason Loredo MD Active ZOFRAN 4 MG ORAL TABLET 1 po q4hr PRN Nausea ONDANSETRON HCL 97205958291 No Longer Active Mason Loredo MD Active LOMOTIL 2.5-0.025 MG ORAL TABLET take 1-2 tabs PO after each stool, no more than 8 in 24 hours DIPHENOXYLATE-ATROPINE 58816799181 No Longer Active Mason Loredo MD Active COLACE 100 MG ORAL CAPSULE 1 pill by mouth twice daily, for constipation 2014 DOCUSATE SODIUM 73602127648 No Longer Active Mima Erazo APRN Active TOLTERODINE TARTRATE 2 MG ORAL TABLET 1 pill twice daily, for bladder TOLTERODINE TARTRATE 86976711226 No Longer Active Vanessa Hickey MD Active AMITIZA 24 MCG ORAL CAPSULE Take one capsule BID for constipation. LUBIPROSTONE 47746929299 No Longer Active Vanessa Hickey MD Active METOPROLOL SUCCINATE ER 100 MG ORAL TABLET EXTENDED RELEASE 24 HOUR 1 by mouth daily for blood pressure METOPROLOL SUCCINATE 54881577452 No Longer Active Grace Nascimento RMA Active METFORMIN HCL ER 500 MG ORAL TABLET EXTENDED RELEASE 24 HOUR Take three tablets by mouth everyday METFORMIN HCL 12903437454 No Longer Active Grace Nelsonb RMA Active LOVAZA 1 GM ORAL CAPSULE 4 daily (for triglycerides) [id number]-8-[id number] ETHYL ESTERS 99545708641 No Longer Active Grace Azam RMA Active TRAZODONE HCL 100 MG ORAL TABLET 1 tab by mouth for sleep TRAZODONE HCL 37654205752 No Longer Active Grace Azam RMA Active NOVOFINE 32G X 6 MM use one four times per day INSULIN PEN NEEDLE 21375690675 No Longer Active Grace Azam RMA Active BACTROBAN 2 % EXTERNAL CREAM Apply to affected area BID for up to 10 days MUPIROCIN CALCIUM 30610659172 No Longer Active Grace Azam RMA Active KEFLEX 500 MG ORAL CAPSULE 1 po BID x 7 days CEPHALEXIN 58683624694 No Longer Active Cherelle Avila APRN Active FLUVOXAMINE MALEATE 100 MG ORAL TABLET Take one (1) tablet by mouth am, 1/2 at noon FLUVOXAMINE MALEATE 73416335805 No Longer Active Mima Erazo APRN Active FLUVOXAMINE MALEATE 100 MG ORAL TABLET Take 1/2 tab at noon 03/04 FLUVOXAMINE MALEATE 11057753373 No Longer Active Cherelle Avila APRN Active ACCU-CHEK ROSA DEVICE Use device to check blood sugars BLOOD GLUCOSE MONITORING SUPPL 62448191230 No Longer Active Marvel Araceli MARROQUIN Active ACCU-CHEK ROSA IN VITRO STRIP use strips with device to check blood sugars 3 times daily GLUCOSE BLOOD 31199775828 No Longer Active Marvel Mackenzieajayari CAR [employer]ERRY CAPTAIN Active VERAPAMIL HCL ER 180 MG ORAL TABLET EXTENDED RELEASE 1 pill by mouth twice daily, for migraine prevention VERAPAMIL HCL 94486621459 Active Mima Erazo APRN Active CYCLOBENZAPRINE HCL 10 MG ORAL TABLET 1 tablet by mouth three times daily, scheduled CYCLOBENZAPRINE HCL 99682610030 No Longer Active Alina Castaneda MD PhD Active HUMALOG 100 UNIT/ML SUBCUTANEOUS SOLUTION Take 20 units with breakfast, 10u with lunch and suppetr. INSULIN LISPRO (HUMAN) 17098402587 No Longer Active Alina Castaneda MD PhD Active TRUETEST TEST IN VITRO STRIP check sugars 4x/day GLUCOSE BLOOD 33877437316 No Longer Active Alina Castaneda MD PhD Active MORPHINE SULFATE 30 MG ORAL TABLET 1 pill by mouth twice daily, for pain 2013 MORPHINE SULFATE 14601886055 No Longer Active Mason Loredo MD Active ACYCLOVIR 400 MG ORAL TABLET 1 pill three times daily x 5 days, for cold sore outbreak ACYCLOVIR 81549769157 No Longer Active Alina Castaneda MD PhD Active PENICILLIN V POTASSIUM 500 MG ORAL TABLET 1 pill by mouth three times daily PENICILLIN V POTASSIUM 97884569940 No Longer Active Alina Castaneda MD PhD Active UROXATRAL 10 MG ORAL TABLET EXTENDED RELEASE 24 HOUR Take 1 tablet by mouth daily ALFUZOSIN HCL 13619387488 No Longer Active Alina Castaneda MD PhD Active THIOTHIXENE 5 MG ORAL CAPSULE by mouth twice a day THIOTHIXENE 65976977577 No Longer Active Alina Castaneda MD PhD Active ZYPREXA 7.5 MG ORAL TABLET 1 at HS OLANZAPINE 00451396478 No Longer Active Alina Castaneda MD PhD Active DETROL LA 4 MG ORAL CAPSULE EXTENDED RELEASE 24 HOUR Take 1 tablet by mouth daily TOLTERODINE TARTRATE 99971528598 No Longer Active Alina Castaneda MD PhD Active TERESE CONTOUR TEST IN VITRO STRIP monitor blood sugars 3x/day GLUCOSE BLOOD 01197940165 No Longer Active Alina Castaneda MD PhD Active EQL TRUETEST TEST IN VITRO STRIP Test blood sugar TID GLUCOSE BLOOD 35423694284 No Longer Active Alina Castaneda MD PhD Active FLUTICASONE PROPIONATE 50 MCG/ACT NASAL SUSPENSION 2 sprays each nostril qDay x 30 days FLUTICASONE PROPIONATE 51139669106 No Longer Active Alina Castaneda MD PhD Active IBUPROFEN 200 MG ORAL TABLET 1 Q 6 hr. PRN IBUPROFEN 73736456534 No Longer Active Alina Castaneda MD PhD Active NIACIN ER 500 MG ORAL TABLET EXTENDED RELEASE 4 qHS (for triglycerides) 01/13 NIACIN 15287355589 No Longer Active Alina Castaneda MD PhD Active SAPHRIS 5 MG SUBLINGUAL TABLET SUBLINGUAL by mouth twice a day ASENAPINE MALEATE 56245447985 No Longer Active Maljohn MARROQUIN Active ACETAMINOPHEN 500 MG ORAL TABLET 2 Q 6 hr. PRN ACETAMINOPHEN 25339746182 No Longer Active Malihnivia Ziglari CAR FERRY CAPTAIN Active ORPHENADRINE CITRATE ER 100 MG ORAL TABLET EXTENDED RELEASE 12 HOUR 1 every 12 hr. as needed ORPHENADRINE CITRATE 11484218418 No Longer Active Alina Castaneda MD PhD Active NIACIN ER 500 MG ORAL TABLET EXTENDED RELEASE 2 qHS NIACIN 99008221499 No Longer Active Alina Castaneda MD PhD Active AMOXICILLIN 500 MG ORAL CAPSULE 2 po BID x 10 days AMOXICILLIN 40286681039 No Longer Active Alina Castaneda MD PhD Active HYDROCODONE-ACETAMINOPHEN 7.5-325 MG ORAL TABLET 1 four times a day as needed for pain HYDROCODONE-ACETAMINOPHEN 67725670517 No Longer Active Alina Castaneda MD PhD Active DOXEPIN HCL 10 MG ORAL CAPSULE Take 1 tablet by mouth daily DOXEPIN HCL 98768527814 No Longer Active Salina Han A Active NAVANE 10 MG CAPS 1/2 tablet twice a day THIOTHIXENE No Longer Active Salina ROBBINSA Active CYCLOBENZAPRINE HCL 10 MG ORAL TABLET 1/2 tablet by mouth every 8 hours as needed for muscle spasms CYCLOBENZAPRINE HCL 31596065527 No Longer Active Alina Castaneda MD PhD Active BACTROBAN 2 % EXTERNAL CREAM apply to ear and nose twice daily MUPIROCIN CALCIUM 19517635428 No Longer Active Alina Castaneda MD PhD Active HYDROCODONE-ACETAMINOPHEN 5-325 MG ORAL TABLET take one tablet by mouth every four hours as needed for pain HYDROCODONE-ACETAMINOPHEN 94204210994 No Longer Active Alina Castaneda MD PhD Active ZYPREXA 5 MG ORAL TABLET take one tablet by mouth every evening OLANZAPINE 40009047585 No Longer Active Alina Castaneda MD PhD Active ALBUTEROL SULFATE (2.5 MG/3ML) 0.083% INHALATION NEBULIZATION SOLUTION one vial per nebulizer TID and PRN cough/soa ALBUTEROL SULFATE 26792226739 No Longer Active Alina Castaneda MD PhD Active GUAIFENESIN ER 600 MG ORAL TABLET EXTENDED RELEASE 12 HOUR 1 tablet by mouth twice daily if needed for cough GUAIFENESIN 03998092430 No Longer Active Marvel MARROQUIN Active AZITHROMYCIN 500 MG INTRAVENOUS SOLUTION RECONSTITUTED 1 po q day AZITHROMYCIN 27316461058 No Longer Active Alina Castaneda MD PhD Active PROMETHAZINE-CODEINE 6.25-10 MG/5ML ORAL SYRUP 1 tsp po q 6 hours prn cough PROMETHAZINE-CODEINE 32433378325 No Longer Active Alina Castaneda MD PhD Active CEFDINIR 300 MG ORAL CAPSULE by mouth twice a day CEFDINIR 45861011280 No Longer Active Alina Castaneda MD PhD Active METFORMIN HCL ER 500 MG ORAL TABLET EXTENDED RELEASE 24 HOUR Take 3 tablets by mouth everyday METFORMIN HCL 41852624473 No Longer Active Alina Castaneda MD PhD Active LEVEMIR 100 UNIT/ML SUBCUTANEOUS SOLUTION 90 units SQ qHS INSULIN DETEMIR 04511791527 No Longer Active Marvel MARROQUIN Active TOPROL XL 100 MG ORAL TABLET EXTENDED RELEASE 24 HOUR 1 @ HS METOPROLOL SUCCINATE 25391787477 No Longer Active Marvel MARROQUIN Active ALLOPURINOL 300 MG ORAL TABLET Take one by mouth daily ALLOPURINOL 29823806842 Active Mima Erazo ENVIRONMENTAL CONTROL ADMINISTRATOR Active ZYPREXA 10 MG ORAL TABLET Take one by mouth daily OLANZAPINE 99816040907 No Longer Active Alina Castaneda MD PhD Active NOVOLOG 100 UNIT/ML SUBCUTANEOUS SOLUTION 40 units with every meal INSULIN ASPART 66152594260 No Longer Active Alina Castaneda MD PhD Active VERAPAMIL HCL ER 120 MG ORAL TABLET EXTENDED RELEASE 1 qPM 09/08 VERAPAMIL HCL 37784632384 No Longer Active Salina ROJAS Active ZYPREXA 15 MG ORAL TABLET Take 1 tablet by mouth daily OLANZAPINE 95312009118 No Longer Active Marvel MARROQUIN Active ALBUTEROL SULFATE (2.5 MG/3ML) 0.083% INHALATION NEBULIZATION SOLUTION 1 neb tid and prn cough ALBUTEROL SULFATE 87634763757 No Longer Active Alina Castaneda MD PhD Active LANTUS 100 UNIT/ML SUBCUTANEOUS SOLUTION 60 units sq q hs INSULIN GLARGINE 21262530121 No Longer Active CRYSTAL Suarez Active ALBUTEROL SULFATE (2.5 MG/3ML) 0.083% INHALATION NEBULIZATION SOLUTION 1 neb tid and prn cough ALBUTEROL SULFATE (2.5 MG/3ML) 0.083% INHALATION NEBULIZATION SOLUTION 978976 ALBUTEROL SULFATE Inactive ZYPREXA 15 MG ORAL TABLET Take 1 tablet by mouth daily ZYPREXA 15 MG ORAL TABLET 279534 OLANZAPINE Inactive VERAPAMIL HCL ER 120 MG ORAL TABLET EXTENDED RELEASE 1 qPM 09/08 VERAPAMIL HCL ER 120 MG ORAL TABLET EXTENDED RELEASE VERAPAMIL HCL Inactive ZYPREXA 10 MG ORAL TABLET Take one by mouth daily ZYPREXA 10 MG ORAL TABLET 434704 OLANZAPINE Inactive TOPROL XL 100 MG ORAL TABLET EXTENDED RELEASE 24 HOUR 1 @ HS TOPROL XL 100 MG ORAL TABLET EXTENDED RELEASE 24 HOUR METOPROLOL SUCCINATE Inactive LEVEMIR 100 UNIT/ML SUBCUTANEOUS SOLUTION 90 units SQ qHS LEVEMIR 100 UNIT/ML SUBCUTANEOUS SOLUTION INSULIN DETEMIR Inactive PROMETHAZINE-CODEINE 6.25-10 MG/5ML ORAL SYRUP 1 tsp po q 6 hours prn cough PROMETHAZINE-CODEINE 6.25-10 MG/5ML ORAL SYRUP 969010 PROMETHAZINE-CODEINE Inactive GUAIFENESIN ER 600 MG ORAL TABLET EXTENDED RELEASE 12 HOUR 1 tablet by mouth twice daily if needed for cough GUAIFENESIN ER 600 MG ORAL TABLET EXTENDED RELEASE 12 HOUR GUAIFENESIN Inactive ALBUTEROL SULFATE (2.5 MG/3ML) 0.083% INHALATION NEBULIZATION SOLUTION one vial per nebulizer TID and PRN cough/soa ALBUTEROL SULFATE (2.5 MG/3ML) 0.083% INHALATION NEBULIZATION SOLUTION 069240 ALBUTEROL SULFATE Inactive ZYPREXA 5 MG ORAL TABLET take one tablet by mouth every evening ZYPREXA 5 MG ORAL TABLET 774568 OLANZAPINE Inactive HYDROCODONE-ACETAMINOPHEN 5-325 MG ORAL TABLET take one tablet by mouth every four hours as needed for pain HYDROCODONE-ACETAMINOPHEN 5-325 MG ORAL TABLET 666061 HYDROCODONE-ACETAMINOPHEN Inactive BACTROBAN 2 % EXTERNAL CREAM apply to ear and nose twice daily BACTROBAN 2 % EXTERNAL CREAM 797482 MUPIROCIN CALCIUM Inactive CYCLOBENZAPRINE HCL 10 MG ORAL TABLET 1/2 tablet by mouth every 8 hours as needed for muscle spasms CYCLOBENZAPRINE HCL 10 MG ORAL TABLET 040615 CYCLOBENZAPRINE HCL Inactive NAVANE 10 MG CAPS 1/2 tablet twice a day NAVANE 10 MG CAPS THIOTHIXENE Inactive DOXEPIN HCL 10 MG ORAL CAPSULE Take 1 tablet by mouth daily DOXEPIN HCL 10 MG ORAL CAPSULE 7242110 DOXEPIN HCL Inactive HYDROCODONE-ACETAMINOPHEN 7.5-325 MG ORAL TABLET 1 four times a day as needed for pain HYDROCODONE-ACETAMINOPHEN 7.5-325 MG ORAL TABLET 764149 HYDROCODONE-ACETAMINOPHEN Inactive NIACIN ER 500 MG ORAL [...] hr. PRN ACETAMINOPHEN 500 MG ORAL TABLET 753634 ACETAMINOPHEN Inactive SAPHRIS 5 MG SUBLINGUAL TABLET SUBLINGUAL by mouth twice a day SAPHRIS 5 MG SUBLINGUAL TABLET SUBLINGUAL ASENAPINE MALEATE Inactive NIACIN ER 500 MG ORAL TABLET EXTENDED RELEASE 4 qHS (for triglycerides) 01/13 NIACIN ER 500 MG ORAL TABLET EXTENDED RELEASE NIACIN Inactive IBUPROFEN 200 MG ORAL TABLET 1 Q 6 hr. PRN IBUPROFEN 200 MG ORAL TABLET 786971 IBUPROFEN Inactive FLUTICASONE PROPIONATE 50 MCG/ACT NASAL SUSPENSION 2 sprays each nostril qDay x 30 days FLUTICASONE PROPIONATE 50 MCG/ACT NASAL SUSPENSION 3996954 FLUTICASONE PROPIONATE Inactive EQL TRUETEST TEST IN [...] at HS ZYPREXA 7.5 MG ORAL TABLET 681590 OLANZAPINE Inactive THIOTHIXENE 5 MG ORAL CAPSULE by mouth twice a day THIOTHIXENE 5 MG ORAL CAPSULE 843050 THIOTHIXENE Inactive UROXATRAL 10 MG ORAL TABLET EXTENDED RELEASE 24 HOUR Take 1 tablet by mouth daily UROXATRAL 10 MG ORAL TABLET EXTENDED RELEASE 24 HOUR ALFUZOSIN HCL Inactive ACYCLOVIR 400 MG ORAL TABLET 1 pill three times daily x 5 days, for cold sore outbreak ACYCLOVIR 400 MG ORAL TABLET 961411 ACYCLOVIR Inactive TRUETEST TEST IN VITRO STRIP check sugars 4x/day TRUETEST TEST IN VITRO STRIP GLUCOSE BLOOD Inactive HUMALOG 100 UNIT/ML SUBCUTANEOUS SOLUTION Take 20 units with breakfast, 10u with lunch and suppetr. HUMALOG 100 UNIT/ML SUBCUTANEOUS SOLUTION INSULIN LISPRO (HUMAN) Inactive CYCLOBENZAPRINE HCL 10 MG ORAL TABLET 1 tablet by mouth three times daily, scheduled CYCLOBENZAPRINE HCL 10 MG ORAL TABLET 984559 CYCLOBENZAPRINE HCL Inactive ACCU-CHEK ROSA IN VITRO STRIP use strips with device to check blood sugars 3 times daily ACCU-CHEK ROSA IN VITRO STRIP GLUCOSE BLOOD Inactive ACCU-CHEK ROSA DEVICE Use device to check blood sugars ACCU-CHEK ROSA DEVICE BLOOD GLUCOSE MONITORING SUPPL Inactive FLUVOXAMINE MALEATE 100 MG ORAL TABLET Take 1/2 tab at noon 03/04 FLUVOXAMINE MALEATE 100 MG ORAL TABLET 723042 FLUVOXAMINE MALEATE Inactive FLUVOXAMINE MALEATE 100 MG ORAL TABLET Take one (1) tablet by mouth am, 1/2 at noon FLUVOXAMINE MALEATE 100 MG ORAL TABLET 087664 FLUVOXAMINE MALEATE Inactive BACTROBAN 2 % EXTERNAL CREAM Apply to affected area BID for up to 10 days BACTROBAN 2 % EXTERNAL CREAM 065490 MUPIROCIN CALCIUM Inactive NOVOFINE 32G X 6 MM use one four times per day NOVOFINE 32G X 6 MM INSULIN PEN NEEDLE Inactive TRAZODONE HCL 100 MG ORAL TABLET 1 tab by mouth for sleep TRAZODONE HCL 100 MG ORAL TABLET 218311 TRAZODONE HCL Inactive LOVAZA 1 GM ORAL CAPSULE 4 daily (for triglycerides) LOVAZA 1 GM ORAL CAPSULE [id number] ETHYL ESTERS Inactive METFORMIN HCL ER 500 [...] bladder TOLTERODINE TARTRATE 2 MG ORAL TABLET 931578 TOLTERODINE TARTRATE Inactive COLACE 100 MG ORAL CAPSULE 1 pill by mouth twice daily, for constipation 2014 COLACE 100 MG ORAL CAPSULE 4521230 DOCUSATE SODIUM Inactive LOMOTIL 2.5-0.025 MG ORAL TABLET take 1-2 tabs PO after each stool, no more than 8 in 24 hours LOMOTIL 2.5-0.025 MG ORAL TABLET 9207747 DIPHENOXYLATE-ATROPINE Inactive ZOFRAN 4 MG ORAL TABLET 1 po q4hr PRN Nausea ZOFRAN 4 MG ORAL TABLET 313154 ONDANSETRON HCL Inactive HYDROCODONE-ACETAMINOPHEN 5-325 MG ORAL TABLET 2 tabs by mouth three times daily for pain HYDROCODONE-ACETAMINOPHEN 5-325 MG ORAL TABLET 130021 HYDROCODONE-ACETAMINOPHEN Inactive ZOLPIDEM TARTRATE 10 MG ORAL TABLET take at bedtime ZOLPIDEM TARTRATE 10 MG ORAL TABLET 898649 ZOLPIDEM TARTRATE Inactive LISINOPRIL 20 MG ORAL TABLET 1 BID LISINOPRIL 20 MG ORAL TABLET 453652 LISINOPRIL Inactive TRAVATAN Z 0.004 % OPHTHALMIC SOLUTION 1 gtt each eye daily TRAVATAN Z 0.004 % OPHTHALMIC SOLUTION TRAVOPROST Inactive LATUDA 60 MG ORAL TABLET Take one by mouth daily LATUDA 60 MG ORAL TABLET LURASIDONE HCL Inactive FLUVOXAMINE MALEATE 50 MG ORAL TABLET 1 tab by mouth daily 04/01 FLUVOXAMINE MALEATE 50 MG ORAL TABLET 119066 FLUVOXAMINE MALEATE Inactive LEVEMIR FLEXTOUCH 100 UNIT/ML [...] 30G 3 a day TRUEPLUS LANCETS 30G [id number] LANCETS Inactive AMITIZA 24 MCG ORAL CAPSULE [...] noon FLUVOXAMINE MALEATE 100 MG ORAL TABLET 354273 FLUVOXAMINE MALEATE Inactive FLONASE ALLERGY RELIEF 50 MCG/ACT NASAL SUSPENSION One spray each nostril BID x 1 week then daily FLONASE ALLERGY RELIEF 50 MCG/ACT NASAL SUSPENSION 4091706 FLUTICASONE PROPIONATE Inactive IMODIUM A-D 2 MG ORAL TABLET 1 tab QID as needed IMODIUM A-D 2 MG ORAL TABLET 637066 LOPERAMIDE HCL Inactive MYLANTA GAS RELIEF MAXIMUM STR 125 MG ORAL CAPSULE 30cc every 4 hours prn MYLANTA GAS RELIEF MAXIMUM STR 125 MG ORAL CAPSULE SIMETHICONE Inactive TRUEPLUS LANCETS 30G 3x a day TRUEPLUS LANCETS 30G [id number] LANCETS Inactive TRUE METRIX BLOOD GLUCOSE TEST [...] headaches TRAZODONE HCL 100 MG ORAL TABLET 040955 TRAZODONE HCL Inactive TYLENOL 8 HOUR 650 [...] evening TAMSULOSIN HCL 0.4 MG ORAL CAPSULE 121343 TAMSULOSIN HCL Inactive [facility] MELATONIN 3 MG ORAL TABLET give 1 tab by mouth at HS [facility] MELATONIN 3 MG ORAL TABLET 205215 MELATONIN Inactive SEROQUEL 100 MG ORAL TABLET 1 tab daily SEROQUEL 100 MG ORAL TABLET 614925 QUETIAPINE FUMARATE Inactive CEFDINIR 300 MG ORAL CAPSULE by mouth twice a day CEFDINIR 300 MG ORAL CAPSULE 259857 CEFDINIR Inactive AZITHROMYCIN 500 MG INTRAVENOUS SOLUTION RECONSTITUTED 1 po q day AZITHROMYCIN 500 MG INTRAVENOUS SOLUTION RECONSTITUTED [id number] AZITHROMYCIN Inactive AMOXICILLIN 500 MG ORAL CAPSULE 2 po BID x 10 days AMOXICILLIN 500 MG ORAL CAPSULE 788485 AMOXICILLIN Inactive PENICILLIN V POTASSIUM 500 MG ORAL TABLET 1 pill by mouth three times daily PENICILLIN V POTASSIUM 500 MG ORAL TABLET 973131 PENICILLIN V POTASSIUM Inactive KEFLEX 500 MG ORAL CAPSULE 1 po BID x 7 days KEFLEX 500 MG ORAL CAPSULE 151426 CEPHALEXIN Inactive Immunizations Vaccine Administration Date Value [...] Fluvirin, Fluarix, Agriflu(>=18 yo)) Fluzone (>3 yrs.) [RVF701] Influenza, seasonal, injectable pneumococcal immunization administered Pneumovax 23 [CVX33] pneumococcal polysaccharide vaccine, 23 valent Vital Signs Date Name Value Unit Range Description blood pressure, diastolic 72 mm[Hg] BP garcia [...] ... - Chemistry sodium, serum 135 mmol/L 601-299 6175/08/22 carbon dioxide, venous blood 28.4 mmol/L 21.0-32.0 [...] mg/g {creat} 0-29 cholesterol, serum 263 mg/dL 596-972 1935/08/22 triglyceride, serum, fasting 1312 mg/dL 30-200 HDL [...] 80 mg/L 0-19 Office Visit: [facility] - Lab PSA (prostate specific antigent), recommendation and action PSA ordered Encounters Code Encounter Date Provider Facility CPT-97028 [id number] Vst-Est Level III 11:00:25 CDT Shavonne Feliciano PA-C [facility] CPT-29565 Level 3 Est. Patient 09:12:14 SPORTS MEDICINE COORDINATOR Mima Erazo [facility] CPT-11120 Level 3 Est. Patient 16:52:51 CDT Vanessa Hickey MD [facility] CPT-56209 Level 3 Est. Patient 17:40:16 CDT [facility]24[facility] Level 3 Est. Patient 14:34:52 CDT Vanessa Hickey MD [facility] CPT-03314 Level 3 Est. Patient 16:27:51 CDT Mima Erazo [facility] CPT-08841 Level 3 Est. Patient 14:39:00 SPORTS MEDICINE COORDINATOR Vanessa Hickey MD [facility]-91422 Level 2 Est. Patient 18:43:34 CDT Mima Erazo [facility] CPT-21583 Level 3 Est. Patient 16:22:09 CDT Cherelle Avila [facility] CPT-49590 Level 4 Est. Patient 17:55:14 CDT Mima Erazo [facility] CPT-23885 Level 2 Est. Patient 17:13:21 CDT Alina Castaneda MD [facility]-21825 Level 3 Est. Patient 14:46:15 CDT Vanessa Hickey MD [facility]-40608 Level 3 Est. Patient 09:34:56 CDT Alina Castaneda MD [facility]-79634 Level 3 Est. Patient 21:40:19 CDT Mima Erazo [facility] CPT-09382 Level 3 Est. Patient 09:26:40 CDT Marvel Charles [facility][note 3]-15463 Level 3 Est. Patient 12:36:43 CDT Vanessa Hickey MD [facility]-01181 Level 3 Est. Patient 12:57:49 CDT Vanessa Hickey MD [facility]-40850 Level 3 Est. Patient 00:28:25 CDT Alina Castaneda MD [facility]-32144 Level 2 Est. Patient 12:52:14 CDT Alina Castaneda MD [facility]39616 Level 3 Est. Patient 11:51:18 SPORTS MEDICINE COORDINATOR Alina Castaneda MD [facility]-50495 Level 3 Est. Patient 10:09:22 SPORTS MEDICINE COORDINATOR Alina Castaneda MD PhD [facility] CPT-52285 Level 3 Est. Patient 14:36:26 SPORTS MEDICINE COORDINATOR Marvel [facility]-57503 Level 3 Est. Patient 13:34:47 SPORTS MEDICINE COORDINATOR Alina Castaneda MD [facility]-83618 Level 3 Est. Patient 19:52:08 SPORTS MEDICINE COORDINATOR Alina Castaneda MD [facility]-07905 Level 3 Est. Patient 10:01:51 SPORTS MEDICINE COORDINATOR Marvel [facility]-67099 Level 3 Est. Patient 21:54:06 CDT Vanessa Hickey MD [facility]-69409 Level 3 Est. Patient 08:54:46 CDT Alina Castaneda MD [facility]-40872 Level 3 Est. Patient 09:32:[address] [facility]-63835 Level 3 Est. Patient 12:02:49 CDT Alina Castaneda MD [facility]-18597 Level 3 Est. Patient 19:17:33 CDT Alina Castaneda MD [facility]-39965 Level 3 Est. Patient 13:19:10 CDT Brooksjohn Charles [facility]-60930 Level 3 Est. Patient 08:20:05 CDT Alina Castaneda MD PhD [facility]-16224 Level 3 Est. Patient 15:17:18 CDT Alina Castaneda MD [facility]-16154 Level 3 Est. Patient 14:25:36 SPORTS MEDICINE COORDINATOR [facility]-48507 Level 3 Est. Patient 10:09:15 SPORTS MEDICINE COORDINATOR [facility]-16428 Level 3 Est. Patient 21:28:43 CDT Alina Castaneda MD [facility]-24612 Level 3 Est. Patient 15:20:11 CDT Marvel Charles [facility]-35593 Level 4 Est. Patient 19:08:12 CDT Alina Castaneda MD [facility]-49322 Level 3 Est. Patient 15:06:39 CDT Marvel [facility]-86703 Level 4 Est. Patient 17:48:15 CDT Alina Castaneda MD [facility]-61072 Level 3 Est. Patient 14:53:49 CDT Alina Castaneda MD [facility]-00872 Level 3 Est. Patient 09:35:16 CDT Alina Castaneda MD [facility]-34391 Level 3 Est. Patient 12:23:22 CDT Alina Castaneda MD [facility]-01875 Level 3 Est. Patient 16:19:15 CDT Alina Castaneda MD [facility]-56100 Level 3 Est. Patient 21:39:56 SPORTS MEDICINE COORDINATOR Alina Castaneda MD [facility]-18513 Level 4 Est. Patient 14:12:56 SPORTS MEDICINE COORDINATOR Alina Castaneda MD [facility]-65760 Level 2 Est. Patient 15:34:57 SPORTS MEDICINE COORDINATOR Alina Castaneda MD [facility]-53709 Level 3 Est. Patient 12:17:04 SPORTS MEDICINE COORDINATOR Alina Castaneda MD [facility]-78852 Level 3 Est. Patient 09:18:18 SPORTS MEDICINE COORDINATOR Marvel [facility]-85533 Level 2 Est. Patient 21:50:24 CDT Alina Castaneda MD [facility]-86249 Level 3 Est. Patient 09:17:28 CDT Marvel [facility]-87777 Level 4 Est. Patient 18:54:02 CDT Alina Castaneda MD [facility]-65547 Level 3 Est. Patient 10:47:10 CDT Alina Castaneda MD [facility]-97853 Level 3 Est. Patient 09:22:20 CDT [facility]-16992 Level 3 Est. Patient 16:39:43 [facility]-92271 Level 3 Est. Patient 16:05:16 CDT Alina Castaneda MD [facility]-96558 Level 3 Est. Patient 00:29:15 CDT Alina Castaneda MD [facility]-55901 Level 3 Est. Patient 10:49:22 SPORTS MEDICINE COORDINATOR [facility]-17777 Level 3 Est. Patient 21:30:19 SPORTS MEDICINE COORDINATOR Alina Castaneda MD [facility]-32735 Level 4 Est. Patient 17:04:11 SPORTS MEDICINE COORDINATOR [facility]-17014 Level 3 Est. Patient 15:34:11 SPORTS MEDICINE COORDINATOR Marvel [facility]-27631 Level 2 Est. Patient 12:51:58 SPORTS MEDICINE COORDINATOR Alina Castaneda MD [facility]-43851 Level 3 Est. Patient 13:20:01 SPORTS MEDICINE COORDINATOR Alina Castaneda MD [facility]-92829 Level 3 Est. Patient 09:23:35 CDT Alina Castaneda MD PhD [facility] Procedures Code Procedure Name Date Entry Date Standard Description CPT-22461 Level 3 Care Home 13:20:19 CDT CPT-TCMM Transitional Care Mgmt-Moderate 12:32:19 CDT CPT-74891 Level 2 Care Home 09:01:11 CDT CPT-93272 HGBA1C - LAB USE ONLY 09:30:27 SPORTS MEDICINE COORDINATOR CPT-45976 BMP - LAB USE ONLY 09:30:27 SPORTS MEDICINE COORDINATOR CPT-46701 Venipuncture Draw Fee 09:30:26 SPORTS MEDICINE COORDINATOR CPT-TCMM Transitional Care Mgmt-Moderate 10:25:31 CDT CPT-86873 Bladder Scan 14:34:53 CDT CPT-46178 Bladder Scan 14:39:01 SPORTS MEDICINE COORDINATOR CPT-TCMM Transitional Care Mgmt-Moderate 10:30:19 SPORTS MEDICINE COORDINATOR CPT-25381 Bladder Scan 12:36:44 CDT CPT-74775 Bladder Scan 21:54:06 CDT CPT-G0008 Administration of Influenza Virus Vaccine 13:05:26 CDT CPT-44563 Fluzone Quadrivalent Intramuscular Suspension 0.5 ML 13: 05:26 CDT CPT-15975 Administration single or combination vaccine inc oral 11 :49:51 CDT CPT-17757 Pneumovax 11:49:51 CDT CPT-23615 Ribs unilateral 2V 12:37:22 SPORTS MEDICINE COORDINATOR CPT-69484 Chest 2V Frontal and Lat 17:15:26 CDT CPT-31365 Abx/Therapy Injection 18:54:02 CDT CPT-J0696 Rocephin 1000 mg (Ceftriaxone) 16:00:32 CDT CPT-49715 Chest 2V Frontal and Lat 15:26:45 CDT CPT-35198 Chest 2V Frontal and Lat 10:23:27 CDT CPT-61898 Venipuncture Draw Fee 10:11:00 CDT CPT-14613 Administration single or combination vaccine inc oral 11 :56:38 CDT CPT-50350 Influenza split virus > age 3 11:56:38 CDT CPT-78086 Venipuncture Draw Fee 08:49:54 SPORTS MEDICINE COORDINATOR CPT-41715 EKG Trac and Interp 17:54:19 SPORTS MEDICINE COORDINATOR
--- OUTSIDE RECORDS SUMMARY | 2018-07-02 12:33 | XMS REPORT | Clinical Summary ---
Author Author Admin, TERELL Organization [facility] Address Unknown Phone Unavailable Allergies, Adverse Reactions, [...] mellitus, type II 250.00 Active Marvel Thurstonari RELAY MECHANIC Diabetes mellitus without mention of complication, type [...] ORAL TABLET 1 tab daily QUETIAPINE FUMARATE 15458386385 No Longer Active Shavonne Feliciano PA-C Active SEROQUEL 25 MG ORAL TABLET Take two tabs by mouth in the morning, take 4 tablets at night QUETIAPINE FUMARATE 10777953858 Active Shavonne Feliciano PA-C Active [facility] MELATONIN 3 MG ORAL TABLET give 1 tab by mouth at HS MELATONIN 26578738012 No Longer Active Gabrielleadrienne Marquez MA Active NOVOLOG FLEXPEN 100 UNIT/ML SUBCUTANEOUS SOLUTION PEN-INJECTOR sliding scale INSULIN ASPART 59114805237 Active Gabrielle Littleananda NOEL Active METFORMIN HCL 1000 MG ORAL TABLET 1 tab by mouth BID METFORMIN HCL 07632377318 Active Gabrielle Littleananda NOEL Active [facility] MELATONIN 3 MG ORAL TABLET 1 tab nightly MELATONIN 22704638549 Active Gabrielle Littleananda BERT Active TAMSULOSIN HCL 0.4 MG ORAL CAPSULE give 2 capsules PO each evening TAMSULOSIN HCL 56901226043 No Longer Active Gabrielle Littleananda BERT Active VITAMIN D 2000 UNIT ORAL CAPSULE Take one by mouth daily CHOLECALCIFEROL 39861381607 No Longer Active Gabrielle Littleananda BERT Active LATUDA 40 MG ORAL TABLET 1.5 tab by mouth in the afternoon LURASIDONE HCL 74024065677 Active Gabrielle Littleananda BERT Active LEVEMIR 100 UNIT/ML SUBCUTANEOUS SOLUTION 10 u at bedtime INSULIN DETEMIR 33378133711 Active Gabrielle Littleananda BERT Active TAMSULOSIN HCL 0.4 MG ORAL CAPSULE 2 every night for urine flow TAMSULOSIN HCL 70504513067 Active Gabrielle Marquez MA Active DIVALPROEX SODIUM 125 MG ORAL TABLET DELAYED RELEASE 1 tab each morning 02/17 DIVALPROEX SODIUM 58445003440 Active Gabrielle Marquez MA Active D 1000 TABLET 2 tab by mouth BID CHOLECALCIFEROL TABS 93695772105 Active Gabrielle Marquez MA Active ALIGN 4 MG ORAL CAPSULE 1 tab at hs PROBIOTIC PRODUCT 12346171206 Active Gabrielle Marquez MA Active CLONAZEPAM 1 MG ORAL TABLET 1 pill by mouth two times daily CLONAZEPAM 43564173460 Active Gabrielle Marquez MA Active FENOFIBRATE 160 MG ORAL TABLET Take 1 tablet by mouth daily FENOFIBRATE 05625644425 Active Mya Ledezma MA Active OCEAN NASAL SPRAY SOLUTION 2 sprays in both nostrils every 8 hours as needed for dry mucous membranes SALINE SOLN 86070892768 Active Mason Loredo MD Active BETHANECHOL CHLORIDE 25 MG ORAL TABLET Take 1 tablet mouth four times a day BETHANECHOL CHLORIDE 36676804695 Active Mason Loredo MD Active [facility] LUBRICANT EYE DROPS 0.4-0.3 % OPHTHALMIC SOLUTION POLYETHYL GLYCOL-PROPYL GLYCOL 75742066321 No Longer Active Mason Loredo MD Active TYLENOL 8 HOUR 650 MG ORAL TABLET EXTENDED RELEASE 1 tab QID prn ACETAMINOPHEN 06158129425 No Longer Active Mason Loredo MD Active TOPAMAX 25 MG ORAL TABLET 1 tab BID PRN TOPIRAMATE 45939945781 Active Mason Loredo MD Active TIMOPTIC OCUDOSE 0.5 % OPHTHALMIC SOLUTION instill one drop into both eyes q12H TIMOLOL MALEATE 56519806404 Active Mason Loredo MD Active TRAZODONE HCL 100 MG ORAL TABLET 1 every night to prevent headaches TRAZODONE HCL 43708666590 No Longer Active Mason Loredo MD Active TRAVATAN Z 0.004 % OPHTHALMIC SOLUTION 1 drop each eye daily 2017 TRAVOPROST 68878254145 No Longer Active Mason Loredo MD Active LATUDA 60 MG ORAL TABLET 1 tab daily LURASIDONE HCL 44294491723 No Longer Active Mason Loredo MD Active MORPHINE SULFATE ER 30 MG ORAL TABLET EXTENDED RELEASE Take one capsule BID MORPHINE SULFATE 68691134584 No Longer Active Mason Loredo MD Active TRUE METRIX BLOOD GLUCOSE TEST IN VITRO STRIP Check blood sugars 3x/day. 2015 GLUCOSE BLOOD 23596483857 No Longer Active Mason Loredo MD Active TRUEPLUS LANCETS 30G 3x a day LANCETS 24891298102 No Longer Active Mason Loredo MD Active MYLANTA GAS RELIEF MAXIMUM STR 125 MG ORAL CAPSULE 30cc every 4 hours prn SIMETHICONE 56052246386 No Longer Active Mason Loredo MD Active IMODIUM A-D 2 MG ORAL TABLET 1 tab QID as needed LOPERAMIDE HCL 06081533010 No Longer Active Mason Loredo MD Active FLONASE ALLERGY RELIEF 50 MCG/ACT NASAL SUSPENSION One spray each nostril BID x 1 week then daily FLUTICASONE PROPIONATE 98311740084 No Longer Active Mason Loredo MD Active FLUVOXAMINE MALEATE 100 MG ORAL TABLET take one tab every AM et HS, and take 1 /2 tab at noon FLUVOXAMINE MALEATE 06782046574 No Longer Active Mason Loredo MD Active BD PEN NEEDLE MINI U/F 31G X 5 MM 4 a day INSULIN PEN NEEDLE 02400326801 No Longer Active Mason Loredo MD Active AMITIZA 24 MCG ORAL CAPSULE Take one capsule BID for constipation LUBIPROSTONE 23490656709 No Longer Active Mason Loredo MD Active TRUEPLUS LANCETS 30G 3 a day LANCETS 27532400997 No Longer Active Mason Loredo MD Active CORICIDIN HBP CONGESTION/COUGH 10-200 MG ORAL CAPSULE Take as directed on box as needed for cold/flu symptoms DEXTROMETHORPHAN- GUAIFENESIN 31166817662 No Longer Active Mason Loredo MD Active OMEGA-3 300 MG ORAL CAPSULE 4 caps by mouth daily OMEGA-3 FATTY ACIDS 56718981104 No Longer Active Mason Loredo MD Active HUMALOG KWIKPEN 100 UNIT/ML SUBCUTANEOUS SOLUTION PEN-INJECTOR sliding scale if needed INSULIN LISPRO (HUMAN) 80769571938 No Longer Active Mason Loredo MD Active TRUETEST TEST IN VITRO STRIP check blood sugars 3x/day GLUCOSE BLOOD 35749413159 No Longer Active Mason Loredo MD Active ALFUZOSIN HCL ER 10 MG ORAL TABLET EXTENDED RELEASE 24 HOUR 1 tablet daily ALFUZOSIN HCL 92127152724 No Longer Active Mason Loredo MD Active BD INSULIN SYRINGE 28G X 1/2" 1 ML 1 four times per day INSULIN SYRINGE-NEEDLE U-100 56940252833 No Longer Active Mason Loredo MD Active LEVEMIR FLEXTOUCH 100 UNIT/ML SUBCUTANEOUS SOLUTION PEN-INJECTOR 60 units SQ each evening, for diabetes INSULIN DETEMIR 97102755815 No Longer Active Mason Loredo MD Active LACTULOSE 20 GM/30ML ORAL SOLUTION give 30 Ml PO BID PRN LACTULOSE 02546967534 Active Mason Loredo MD Active COLACE 100 MG ORAL CAPSULE 1 tab BID PRN DOCUSATE SODIUM 88614590015 Active Mason Loredo MD Active LATANOPROST 0.005 % OPHTHALMIC SOLUTION instill 1 drop in both eyes at bed time LATANOPROST 26911443204 Active Mason Loredo MD Active AMARYL 2 MG ORAL TABLET give 2.5 tabs PO daily GLIMEPIRIDE 25006827866 Active Mason Loredo MD Active MIRALAX ORAL POWDER 17g by mouth q12h, for constipation POLYETHYLENE GLYCOL 3350 21412288997 Active Mason Loredo MD Active IBUPROFEN 400 MG ORAL TABLET 1 tab Q6H PRN IBUPROFEN 35933326196 Active Mason Loredo MD Active EFFEXOR XR 37.5 MG ORAL CAPSULE EXTENDED RELEASE 24 HOUR Take one by mouth daily VENLAFAXINE HCL 10171175046 Active Mima Erazo APRN Active FLUVOXAMINE MALEATE 50 MG ORAL TABLET 1 tab by mouth daily 04/01 FLUVOXAMINE MALEATE 65345467499 No Longer Active Mima Erazo APRN Active TRUE METRIX METER w/Device KIT Check blood sugars 3x/day BLOOD GLUCOSE MONITORING SUPPL 20102535477 Active Marvel Charles RELAY MECHANIC Active LATUDA 60 MG ORAL TABLET Take one by mouth daily LURASIDONE HCL 42295507194 No Longer Active Mima Erazo APRN Active [facility] MILK OF MAGNESIA 400 MG/5ML ORAL SUSPENSION 30ml by mouth bid prn MAGNESIUM HYDROXIDE 86480000037 Active Mason Loredo MD Active TRAVATAN Z 0.004 % OPHTHALMIC SOLUTION 1 gtt each eye daily TRAVOPROST 92352140088 No Longer Active Mason Loredo MD Active LISINOPRIL 20 MG ORAL TABLET 1 BID LISINOPRIL 57827029114 No Longer Active Mason Loredo MD Active ZOLPIDEM TARTRATE 10 MG ORAL TABLET take at bedtime ZOLPIDEM TARTRATE 28730772756 No Longer Active Mason Loredo MD Active HYDROCODONE-ACETAMINOPHEN 5-325 MG ORAL TABLET 2 tabs by mouth three times daily for pain HYDROCODONE-ACETAMINOPHEN 11640242462 No Longer Active Mason Loredo MD Active ZOFRAN 4 MG ORAL TABLET 1 po q4hr PRN Nausea ONDANSETRON HCL 89488060227 No Longer Active Mason Loredo MD Active LOMOTIL 2.5-0.025 MG ORAL TABLET take 1-2 tabs PO after each stool, no more than 8 in 24 hours DIPHENOXYLATE-ATROPINE 64295438609 No Longer Active Mason Loredo MD Active COLACE 100 MG ORAL CAPSULE 1 pill by mouth twice daily, for constipation 2014 DOCUSATE SODIUM 15072220354 No Longer Active Mima Erazo APRN Active TOLTERODINE TARTRATE 2 MG ORAL TABLET 1 pill twice daily, for bladder TOLTERODINE TARTRATE 76180925134 No Longer Active Vanessa Hickey MD Active AMITIZA 24 MCG ORAL CAPSULE Take one capsule BID for constipation. LUBIPROSTONE 25075988536 No Longer Active Vanessa Hickey MD Active METOPROLOL SUCCINATE ER 100 MG ORAL TABLET EXTENDED RELEASE 24 HOUR 1 by mouth daily for blood pressure METOPROLOL SUCCINATE 03858903096 No Longer Active Grace Nascimento RMA Active METFORMIN HCL ER 500 MG ORAL TABLET EXTENDED RELEASE 24 HOUR Take three tablets by mouth everyday METFORMIN HCL 88273024620 No Longer Active Grace Nelsonb RMA Active LOVAZA 1 GM ORAL CAPSULE 4 daily (for triglycerides) [id number] ETHYL ESTERS 12156276570 No Longer Active Grace Azam RMA Active TRAZODONE HCL 100 MG ORAL TABLET 1 tab by mouth for sleep TRAZODONE HCL 08174959170 No Longer Active Grace Azam RMA Active NOVOFINE 32G X 6 MM use one four times per day INSULIN PEN NEEDLE 87455809485 No Longer Active Grace Azam RMA Active BACTROBAN 2 % EXTERNAL CREAM Apply to affected area BID for up to 10 days MUPIROCIN CALCIUM 47772647119 No Longer Active Grace Azam RMA Active KEFLEX 500 MG ORAL CAPSULE 1 po BID x 7 days CEPHALEXIN 51690008741 No Longer Active Cherelle Avila APRN Active FLUVOXAMINE MALEATE 100 MG ORAL TABLET Take one (1) tablet by mouth am, 1/2 at noon FLUVOXAMINE MALEATE 42409163178 No Longer Active Mima Erazo APRN Active FLUVOXAMINE MALEATE 100 MG ORAL TABLET Take 1/2 tab at noon 03/04 FLUVOXAMINE MALEATE 17338494866 No Longer Active Cherelle Avila APRN Active ACCU-CHEK ROSA DEVICE Use device to check blood sugars BLOOD GLUCOSE MONITORING SUPPL 59711790145 No Longer Active Marvel Araceli MARROQUIN Active ACCU-CHEK ROSA IN VITRO STRIP use strips with device to check blood sugars 3 times daily GLUCOSE BLOOD 73979397851 No Longer Active Marvel Mackenzieajayari RELAY MECHANIC Active VERAPAMIL HCL ER 180 MG ORAL TABLET EXTENDED RELEASE 1 pill by mouth twice daily, for migraine prevention VERAPAMIL HCL 84900186214 Active Mima Erazo APRN Active CYCLOBENZAPRINE HCL 10 MG ORAL TABLET 1 tablet by mouth three times daily, scheduled CYCLOBENZAPRINE HCL 03445471810 No Longer Active Alina Castaneda MD PhD Active HUMALOG 100 UNIT/ML SUBCUTANEOUS SOLUTION Take 20 units with breakfast, 10u with lunch and suppetr. INSULIN LISPRO (HUMAN) 84774270781 No Longer Active Alina Castaneda MD PhD Active TRUETEST TEST IN VITRO STRIP check sugars 4x/day GLUCOSE BLOOD 79332604330 No Longer Active Alina Castaneda MD PhD Active MORPHINE SULFATE 30 MG ORAL TABLET 1 pill by mouth twice daily, for pain 2013 MORPHINE SULFATE 84101735523 No Longer Active Mason Loredo MD Active ACYCLOVIR 400 MG ORAL TABLET 1 pill three times daily x 5 days, for cold sore outbreak ACYCLOVIR 89278362935 No Longer Active Alina Castaneda MD PhD Active PENICILLIN V POTASSIUM 500 MG ORAL TABLET 1 pill by mouth three times daily PENICILLIN V POTASSIUM 28711294097 No Longer Active Alina Castaneda MD PhD Active UROXATRAL 10 MG ORAL TABLET EXTENDED RELEASE 24 HOUR Take 1 tablet by mouth daily ALFUZOSIN HCL 20806822367 No Longer Active Alina Castaneda MD PhD Active THIOTHIXENE 5 MG ORAL CAPSULE by mouth twice a day THIOTHIXENE 01652924412 No Longer Active Alina Castaneda MD PhD Active ZYPREXA 7.5 MG ORAL TABLET 1 at HS OLANZAPINE 85401037282 No Longer Active Alina Castaneda MD PhD Active DETROL LA 4 MG ORAL CAPSULE EXTENDED RELEASE 24 HOUR Take 1 tablet by mouth daily TOLTERODINE TARTRATE 95242733902 No Longer Active Alina Castaneda MD PhD Active TERESE CONTOUR TEST IN VITRO STRIP monitor blood sugars 3x/day GLUCOSE BLOOD 16914737498 No Longer Active Alina Castaneda MD PhD Active EQL TRUETEST TEST IN VITRO STRIP Test blood sugar TID GLUCOSE BLOOD 51559056811 No Longer Active Alina Castaneda MD PhD Active FLUTICASONE PROPIONATE 50 MCG/ACT NASAL SUSPENSION 2 sprays each nostril qDay x 30 days FLUTICASONE PROPIONATE 52334045987 No Longer Active Alina Castaneda MD PhD Active IBUPROFEN 200 MG ORAL TABLET 1 Q 6 hr. PRN IBUPROFEN 13733999307 No Longer Active Alina Castaneda MD PhD Active NIACIN ER 500 MG ORAL TABLET EXTENDED RELEASE 4 qHS (for triglycerides) 01/13 NIACIN 12443268516 No Longer Active Alina Castaneda MD PhD Active SAPHRIS 5 MG SUBLINGUAL TABLET SUBLINGUAL by mouth twice a day ASENAPINE MALEATE 17056101613 No Longer Active Maljohn MARROQUIN Active ACETAMINOPHEN 500 MG ORAL TABLET 2 Q 6 hr. PRN ACETAMINOPHEN 89192631006 No Longer Active Malihnivia Ziglari RELAY MECHANIC Active ORPHENADRINE CITRATE ER 100 MG ORAL TABLET EXTENDED RELEASE 12 HOUR 1 every 12 hr. as needed ORPHENADRINE CITRATE 64639656408 No Longer Active Alina Castaneda MD PhD Active NIACIN ER 500 MG ORAL TABLET EXTENDED RELEASE 2 qHS NIACIN 42095899093 No Longer Active Alina Castaneda MD PhD Active AMOXICILLIN 500 MG ORAL CAPSULE 2 po BID x 10 days AMOXICILLIN 70475522232 No Longer Active Alina Castaneda MD PhD Active HYDROCODONE-ACETAMINOPHEN 7.5-325 MG ORAL TABLET 1 four times a day as needed for pain HYDROCODONE-ACETAMINOPHEN 79103033505 No Longer Active Alina Castaneda MD PhD Active DOXEPIN HCL 10 MG ORAL CAPSULE Take 1 tablet by mouth daily DOXEPIN HCL 36785320055 No Longer Active Salina Han A Active NAVANE 10 MG CAPS 1/2 tablet twice a day THIOTHIXENE No Longer Active Salina ROBBINSA Active CYCLOBENZAPRINE HCL 10 MG ORAL TABLET 1/2 tablet by mouth every 8 hours as needed for muscle spasms CYCLOBENZAPRINE HCL 69283118913 No Longer Active Alina Castaneda MD PhD Active BACTROBAN 2 % EXTERNAL CREAM apply to ear and nose twice daily MUPIROCIN CALCIUM 59349668160 No Longer Active Alina Castaneda MD PhD Active HYDROCODONE-ACETAMINOPHEN 5-325 MG ORAL TABLET take one tablet by mouth every four hours as needed for pain HYDROCODONE-ACETAMINOPHEN 76050114945 No Longer Active Alina Castaneda MD PhD Active ZYPREXA 5 MG ORAL TABLET take one tablet by mouth every evening OLANZAPINE 25174085227 No Longer Active Alina Castaneda MD PhD Active ALBUTEROL SULFATE (2.5 MG/3ML) 0.083% INHALATION NEBULIZATION SOLUTION one vial per nebulizer TID and PRN cough/soa ALBUTEROL SULFATE 16695833420 No Longer Active Alina Castaneda MD PhD Active GUAIFENESIN ER 600 MG ORAL TABLET EXTENDED RELEASE 12 HOUR 1 tablet by mouth twice daily if needed for cough GUAIFENESIN 72943354013 No Longer Active Marvel MARROQUIN Active AZITHROMYCIN 500 MG INTRAVENOUS SOLUTION RECONSTITUTED 1 po q day AZITHROMYCIN 23167587746 No Longer Active Alina Castaneda MD PhD Active PROMETHAZINE-CODEINE 6.25-10 MG/5ML ORAL SYRUP 1 tsp po q 6 hours prn cough PROMETHAZINE-CODEINE 86230263549 No Longer Active Alina Castaneda MD PhD Active CEFDINIR 300 MG ORAL CAPSULE by mouth twice a day CEFDINIR 28240400437 No Longer Active Alina Castaneda MD PhD Active METFORMIN HCL ER 500 MG ORAL TABLET EXTENDED RELEASE 24 HOUR Take 3 tablets by mouth everyday METFORMIN HCL 20077865261 No Longer Active Alina Castaneda MD PhD Active LEVEMIR 100 UNIT/ML SUBCUTANEOUS SOLUTION 90 units SQ qHS INSULIN DETEMIR 68126393584 No Longer Active Marvel MARROQUIN Active TOPROL XL 100 MG ORAL TABLET EXTENDED RELEASE 24 HOUR 1 @ HS METOPROLOL SUCCINATE 10716177132 No Longer Active Marvel MARROQUIN Active ALLOPURINOL 300 MG ORAL TABLET Take one by mouth daily ALLOPURINOL 74751285353 Active Mima Erazo TIE SAWYER Active ZYPREXA 10 MG ORAL TABLET Take one by mouth daily OLANZAPINE 56100756759 No Longer Active Alina Castaneda MD PhD Active NOVOLOG 100 UNIT/ML SUBCUTANEOUS SOLUTION 40 units with every meal INSULIN ASPART 13879095368 No Longer Active Alina Castaneda MD PhD Active VERAPAMIL HCL ER 120 MG ORAL TABLET EXTENDED RELEASE 1 qPM 09/08 VERAPAMIL HCL 36101231283 No Longer Active Salina ROJAS Active ZYPREXA 15 MG ORAL TABLET Take 1 tablet by mouth daily OLANZAPINE 32107120137 No Longer Active Marvel MARROQUIN Active ALBUTEROL SULFATE (2.5 MG/3ML) 0.083% INHALATION NEBULIZATION SOLUTION 1 neb tid and prn cough ALBUTEROL SULFATE 20724172895 No Longer Active Alina Castaneda MD PhD Active LANTUS 100 UNIT/ML SUBCUTANEOUS SOLUTION 60 units sq q hs INSULIN GLARGINE 84527478205 No Longer Active CRYSTAL Suarez Active ACETAMINOPHEN 500 MG ORAL TABLET 2 Q 6 hr. PRN ACETAMINOPHEN 500 MG ORAL TABLET 128934 ACETAMINOPHEN Inactive ALBUTEROL SULFATE (2.5 MG/3ML) 0.083% INHALATION NEBULIZATION SOLUTION one vial per nebulizer TID and PRN cough/soa ALBUTEROL SULFATE (2.5 MG/3ML) 0.083% INHALATION NEBULIZATION SOLUTION 808296 ALBUTEROL SULFATE Inactive ALBUTEROL SULFATE (2.5 MG/3ML) 0.083% INHALATION NEBULIZATION SOLUTION 1 neb tid and prn cough ALBUTEROL SULFATE (2.5 MG/3ML) 0.083% INHALATION NEBULIZATION SOLUTION 016635 ALBUTEROL SULFATE Inactive AMOXICILLIN 500 MG ORAL CAPSULE 2 po BID x 10 days AMOXICILLIN 500 MG ORAL CAPSULE 358078 AMOXICILLIN Inactive COLACE 100 MG ORAL CAPSULE 1 pill by mouth twice daily, for constipation 2014 COLACE 100 MG ORAL CAPSULE 7606611 DOCUSATE SODIUM Inactive CYCLOBENZAPRINE HCL 10 MG ORAL TABLET 1/2 tablet by mouth every 8 hours as needed for muscle spasms CYCLOBENZAPRINE HCL 10 MG ORAL TABLET 237760 CYCLOBENZAPRINE HCL Inactive CYCLOBENZAPRINE HCL 10 MG ORAL TABLET 1 tablet by mouth three times daily, scheduled CYCLOBENZAPRINE HCL 10 MG ORAL TABLET 218550 CYCLOBENZAPRINE HCL Inactive DOXEPIN HCL 10 MG ORAL CAPSULE Take 1 tablet by mouth daily DOXEPIN HCL 10 MG ORAL CAPSULE 4718647 DOXEPIN HCL Inactive IBUPROFEN 200 MG ORAL TABLET 1 Q 6 hr. PRN IBUPROFEN 200 MG ORAL TABLET 485869 IBUPROFEN Inactive IMODIUM A-D 2 MG ORAL TABLET 1 tab QID as needed IMODIUM A-D 2 MG ORAL TABLET 875454 LOPERAMIDE HCL Inactive KEFLEX 500 MG ORAL CAPSULE 1 po BID x 7 days KEFLEX 500 MG ORAL CAPSULE 437529 CEPHALEXIN Inactive LISINOPRIL 20 MG ORAL TABLET 1 BID LISINOPRIL 20 MG ORAL TABLET 992161 LISINOPRIL Inactive LOMOTIL 2.5-0.025 MG ORAL TABLET take 1-2 tabs PO after each stool, no more than 8 in 24 hours LOMOTIL 2.5-0.025 MG ORAL TABLET 7446618 DIPHENOXYLATE-ATROPINE Inactive NAVANE 10 MG CAPS 1/2 tablet twice a day NAVANE 10 MG CAPS THIOTHIXENE Inactive NIACIN ER 500 MG ORAL TABLET EXTENDED RELEASE 2 qHS NIACIN ER 500 MG ORAL TABLET EXTENDED RELEASE NIACIN Inactive NIACIN ER 500 MG ORAL TABLET EXTENDED RELEASE 4 qHS (for triglycerides) 01/13 NIACIN ER 500 MG ORAL TABLET EXTENDED RELEASE NIACIN Inactive PENICILLIN V POTASSIUM 500 MG ORAL TABLET 1 pill by mouth three times daily PENICILLIN V POTASSIUM 500 MG ORAL TABLET 995478 PENICILLIN V POTASSIUM Inactive PROMETHAZINE-CODEINE 6.25-10 MG/5ML ORAL SYRUP 1 tsp po q 6 hours prn cough PROMETHAZINE-CODEINE 6.25-10 MG/5ML ORAL SYRUP 133436 PROMETHAZINE-CODEINE Inactive THIOTHIXENE 5 MG ORAL CAPSULE by mouth twice a day THIOTHIXENE 5 MG ORAL CAPSULE 205876 THIOTHIXENE Inactive TRAZODONE HCL 100 MG ORAL TABLET 1 tab by mouth for sleep TRAZODONE HCL 100 MG ORAL TABLET 634798 TRAZODONE HCL Inactive TRAZODONE HCL 100 MG ORAL TABLET 1 every night to prevent headaches TRAZODONE HCL 100 MG ORAL TABLET 990135 TRAZODONE HCL Inactive ZOFRAN 4 MG ORAL TABLET 1 po q4hr PRN Nausea ZOFRAN 4 MG ORAL TABLET 743893 ONDANSETRON HCL Inactive ACYCLOVIR 400 MG ORAL TABLET 1 pill three times daily x 5 days, for cold sore outbreak ACYCLOVIR 400 MG ORAL TABLET 453715 ACYCLOVIR Inactive FLUVOXAMINE MALEATE 100 MG ORAL TABLET take one tab every AM et HS, and take 1 /2 tab at noon FLUVOXAMINE MALEATE 100 MG ORAL TABLET 916908 FLUVOXAMINE MALEATE Inactive FLUVOXAMINE MALEATE 100 MG ORAL TABLET Take 1/2 tab at noon 03/04 FLUVOXAMINE MALEATE 100 MG ORAL TABLET 247963 FLUVOXAMINE MALEATE Inactive FLUVOXAMINE MALEATE 100 MG ORAL TABLET Take one (1) tablet by mouth am, 1/2 at noon FLUVOXAMINE MALEATE 100 MG ORAL TABLET 594650 FLUVOXAMINE MALEATE Inactive FLUVOXAMINE MALEATE 50 MG ORAL TABLET 1 tab by mouth daily 04/01 FLUVOXAMINE MALEATE 50 MG ORAL TABLET 901984 FLUVOXAMINE MALEATE Inactive ZOLPIDEM TARTRATE 10 MG ORAL TABLET take at bedtime ZOLPIDEM TARTRATE 10 MG ORAL TABLET 966218 ZOLPIDEM TARTRATE Inactive VERAPAMIL HCL ER 120 MG ORAL TABLET EXTENDED RELEASE 1 qPM 09/08 VERAPAMIL HCL ER 120 MG ORAL TABLET EXTENDED RELEASE VERAPAMIL HCL Inactive MORPHINE SULFATE ER 30 MG ORAL TABLET EXTENDED RELEASE Take one capsule BID MORPHINE SULFATE ER 30 MG ORAL TABLET EXTENDED RELEASE MORPHINE SULFATE Inactive HUMALOG 100 UNIT/ML SUBCUTANEOUS SOLUTION Take 20 units with breakfast, 10u with lunch and suppetr. HUMALOG 100 UNIT/ML SUBCUTANEOUS SOLUTION INSULIN LISPRO (HUMAN) Inactive ZYPREXA 5 MG ORAL TABLET take one tablet by mouth every evening ZYPREXA 5 MG ORAL TABLET 056767 OLANZAPINE Inactive ZYPREXA 7.5 MG ORAL TABLET 1 at HS ZYPREXA 7.5 MG ORAL TABLET 028267 OLANZAPINE Inactive ZYPREXA 10 MG ORAL TABLET Take one by mouth daily ZYPREXA 10 MG ORAL TABLET 604761 OLANZAPINE Inactive BD INSULIN SYRINGE 28G X 1/2" 1 ML 1 four times per day BD INSULIN SYRINGE 28G X 1/2" 1 ML INSULIN SYRINGE-NEEDLE U-100 Inactive AZITHROMYCIN 500 MG INTRAVENOUS SOLUTION RECONSTITUTED 1 po q day AZITHROMYCIN 500 MG INTRAVENOUS SOLUTION RECONSTITUTED 24108373008 AZITHROMYCIN Inactive SEROQUEL 100 MG ORAL TABLET 1 tab daily SEROQUEL 100 MG ORAL TABLET 479484 QUETIAPINE FUMARATE Inactive BACTROBAN 2 % EXTERNAL CREAM Apply to affected area BID for up to 10 days BACTROBAN 2 % EXTERNAL CREAM 568270 MUPIROCIN CALCIUM Inactive BACTROBAN 2 % EXTERNAL CREAM apply to ear and nose twice daily BACTROBAN 2 % EXTERNAL CREAM 238751 MUPIROCIN CALCIUM Inactive CEFDINIR 300 MG ORAL CAPSULE by mouth twice a day CEFDINIR 300 MG ORAL CAPSULE 263822 CEFDINIR Inactive TOLTERODINE TARTRATE 2 MG ORAL TABLET 1 pill twice daily, for bladder TOLTERODINE TARTRATE 2 MG ORAL TABLET 806201 TOLTERODINE TARTRATE Inactive ZYPREXA 15 MG ORAL TABLET Take 1 tablet by mouth daily ZYPREXA 15 MG ORAL TABLET 322414 OLANZAPINE Inactive METFORMIN HCL ER 500 MG ORAL TABLET EXTENDED RELEASE 24 HOUR Take three tablets by mouth everyday METFORMIN HCL ER 500 MG ORAL TABLET EXTENDED RELEASE 24 HOUR METFORMIN HCL Inactive DETROL LA 4 MG ORAL CAPSULE EXTENDED RELEASE 24 HOUR Take 1 tablet by mouth daily DETROL LA 4 MG ORAL CAPSULE EXTENDED RELEASE 24 HOUR TOLTERODINE TARTRATE Inactive METOPROLOL SUCCINATE ER 100 MG ORAL TABLET EXTENDED RELEASE 24 HOUR 1 by mouth daily for blood pressure METOPROLOL SUCCINATE ER 100 MG ORAL TABLET EXTENDED RELEASE 24 HOUR METOPROLOL SUCCINATE Inactive TOPROL XL 100 MG ORAL TABLET EXTENDED RELEASE 24 HOUR 1 @ HS TOPROL XL 100 MG ORAL TABLET EXTENDED RELEASE 24 HOUR METOPROLOL SUCCINATE Inactive MYLANTA GAS RELIEF MAXIMUM STR 125 MG ORAL CAPSULE 30cc every 4 hours prn MYLANTA GAS RELIEF MAXIMUM STR 125 MG ORAL CAPSULE SIMETHICONE Inactive HYDROCODONE-ACETAMINOPHEN 5-325 MG ORAL TABLET 2 tabs by mouth three times daily for pain HYDROCODONE-ACETAMINOPHEN 5-325 MG ORAL TABLET 152243 HYDROCODONE-ACETAMINOPHEN Inactive HYDROCODONE-ACETAMINOPHEN 5-325 MG ORAL TABLET take one tablet by mouth every four hours as needed for pain HYDROCODONE-ACETAMINOPHEN 5-325 MG ORAL TABLET 107525 HYDROCODONE-ACETAMINOPHEN Inactive HYDROCODONE-ACETAMINOPHEN 7.5-325 MG ORAL TABLET 1 four times a day as needed for pain HYDROCODONE-ACETAMINOPHEN 7.5-325 MG ORAL TABLET 366488 HYDROCODONE-ACETAMINOPHEN Inactive TYLENOL 8 HOUR 650 MG ORAL TABLET EXTENDED RELEASE 1 tab QID prn TYLENOL 8 HOUR 650 MG ORAL TABLET EXTENDED RELEASE ACETAMINOPHEN Inactive GUAIFENESIN ER 600 MG ORAL TABLET EXTENDED RELEASE 12 HOUR 1 tablet by mouth twice daily if needed for cough GUAIFENESIN ER 600 MG ORAL TABLET EXTENDED RELEASE 12 HOUR GUAIFENESIN Inactive ALFUZOSIN HCL ER 10 MG ORAL TABLET EXTENDED RELEASE 24 HOUR 1 tablet daily ALFUZOSIN HCL ER 10 MG ORAL TABLET EXTENDED RELEASE 24 HOUR ALFUZOSIN HCL Inactive BD PEN NEEDLE MINI U/F 31G X 5 MM 4 a day BD PEN NEEDLE MINI U/F 31G X 5 MM INSULIN PEN NEEDLE Inactive ORPHENADRINE CITRATE ER 100 MG ORAL TABLET EXTENDED RELEASE 12 HOUR 1 every 12 hr. as needed ORPHENADRINE CITRATE ER 100 MG ORAL TABLET EXTENDED RELEASE 12 HOUR ORPHENADRINE CITRATE Inactive UROXATRAL 10 MG ORAL TABLET EXTENDED RELEASE 24 HOUR Take 1 tablet by mouth daily UROXATRAL 10 MG ORAL TABLET EXTENDED RELEASE 24 HOUR ALFUZOSIN HCL Inactive CORICIDIN HBP CONGESTION/COUGH 10-200 MG ORAL CAPSULE Take as directed on box as needed for cold/flu symptoms CORICIDIN HBP CONGESTION/COUGH 10-200 MG ORAL CAPSULE DEXTROMETHORPHAN-GUAIFENESIN Inactive ACCU-CHEK ROSA IN VITRO STRIP use strips with device to check blood sugars 3 times daily ACCU-CHEK ROSA IN VITRO STRIP GLUCOSE BLOOD Inactive LEVEMIR 100 UNIT/ML SUBCUTANEOUS SOLUTION 90 units SQ qHS LEVEMIR 100 UNIT/ML SUBCUTANEOUS SOLUTION INSULIN DETEMIR Inactive FLUTICASONE PROPIONATE 50 MCG/ACT NASAL SUSPENSION 2 sprays each nostril qDay x 30 days FLUTICASONE PROPIONATE 50 MCG/ACT NASAL SUSPENSION [id number] FLUTICASONE PROPIONATE Inactive AMITIZA 24 MCG ORAL CAPSULE Take one capsule BID for constipation. AMITIZA 24 MCG ORAL CAPSULE LUBIPROSTONE Inactive AMITIZA 24 MCG ORAL CAPSULE Take one capsule BID for constipation AMITIZA 24 MCG ORAL CAPSULE LUBIPROSTONE Inactive ACCU-CHEK ROSA DEVICE Use device to check blood sugars ACCU-CHEK ROSA DEVICE BLOOD GLUCOSE MONITORING SUPPL Inactive TRAVATAN Z 0.004 % OPHTHALMIC SOLUTION 1 drop each eye daily 2017 TRAVATAN Z 0.004 % OPHTHALMIC SOLUTION TRAVOPROST Inactive TRAVATAN Z 0.004 % OPHTHALMIC SOLUTION 1 gtt each eye daily TRAVATAN Z 0.004 % OPHTHALMIC SOLUTION TRAVOPROST Inactive LOVAZA 1 GM ORAL CAPSULE 4 daily (for triglycerides) LOVAZA 1 GM ORAL CAPSULE [id number] ETHYL ESTERS Inactive NOVOFINE 32G X 6 MM use one four times per day NOVOFINE 32G X 6 MM INSULIN PEN NEEDLE Inactive TRUETEST TEST IN VITRO STRIP check sugars 4x/day TRUETEST TEST IN VITRO STRIP GLUCOSE BLOOD Inactive TRUETEST TEST IN VITRO STRIP check blood sugars 3x/day TRUETEST TEST IN VITRO STRIP GLUCOSE BLOOD Inactive [facility] MELATONIN 3 MG ORAL TABLET give 1 tab by mouth at HS [facility] MELATONIN 3 MG ORAL TABLET [id number] MELATONIN Inactive TERESE CONTOUR TEST IN VITRO STRIP monitor blood sugars 3x/day TERESE CONTOUR TEST IN VITRO STRIP GLUCOSE BLOOD Inactive SAPHRIS 5 MG SUBLINGUAL TABLET SUBLINGUAL by mouth twice a day SAPHRIS 5 MG SUBLINGUAL TABLET SUBLINGUAL ASENAPINE MALEATE Inactive TAMSULOSIN HCL 0.4 MG ORAL CAPSULE give 2 capsules PO each evening TAMSULOSIN HCL 0.4 MG ORAL CAPSULE [id number] TAMSULOSIN HCL Inactive [facility] LUBRICANT EYE DROPS 0.4-0.3 % OPHTHALMIC SOLUTION [facility]S LUBRICANT EYE DROPS 0.4-0.3 % OPHTHALMIC SOLUTION POLYETHYL GLYCOL- PROPYL GLYCOL Inactive VITAMIN D 2000 UNIT ORAL CAPSULE Take one by mouth daily VITAMIN D 2000 UNIT ORAL CAPSULE CHOLECALCIFEROL Inactive TRUEPLUS LANCETS 30G 3x a day TRUEPLUS LANCETS 30G [id number] LANCETS Inactive TRUEPLUS LANCETS 30G 3 a day TRUEPLUS LANCETS 30G [id number] LANCETS Inactive EQL TRUETEST TEST IN VITRO STRIP Test blood sugar TID EQL TRUETEST TEST IN VITRO STRIP GLUCOSE BLOOD Inactive OMEGA-3 300 MG ORAL CAPSULE 4 caps by mouth daily OMEGA-3 300 MG ORAL CAPSULE OMEGA-3 FATTY ACIDS Inactive LATUDA 60 MG ORAL TABLET 1 tab daily LATUDA 60 MG ORAL TABLET LURASIDONE HCL Inactive LATUDA 60 MG ORAL TABLET Take one by mouth daily LATUDA 60 MG ORAL TABLET LURASIDONE HCL Inactive HUMALOG KWIKPEN 100 UNIT/ML SUBCUTANEOUS SOLUTION PEN-INJECTOR sliding scale if needed HUMALOG KWIKPEN 100 UNIT/ML SUBCUTANEOUS SOLUTION PEN- INJECTOR INSULIN LISPRO (HUMAN) Inactive LEVEMIR FLEXTOUCH 100 UNIT/ML SUBCUTANEOUS SOLUTION PEN-INJECTOR 60 units SQ each evening, for diabetes LEVEMIR FLEXTOUCH 100 UNIT/ ML SUBCUTANEOUS SOLUTION PEN-INJECTOR INSULIN DETEMIR Inactive TRUE METRIX BLOOD GLUCOSE TEST IN VITRO STRIP Check blood sugars 3x/day. 2015 TRUE METRIX BLOOD GLUCOSE TEST IN VITRO STRIP GLUCOSE BLOOD Inactive FLONASE ALLERGY RELIEF 50 MCG/ACT NASAL SUSPENSION One spray each nostril BID x 1 week then daily FLONASE ALLERGY RELIEF 50 MCG/ACT NASAL SUSPENSION [id number] FLUTICASONE PROPIONATE Inactive Immunizations Vaccine Administration Date Value Standard [...] Fluvirin, Fluarix, Agriflu(>=18 yo)) Fluzone (>3 yrs.) [KTC868] Influenza, seasonal, injectable pneumococcal immunization administered Pneumovax [...] ... - Chemistry sodium, serum 135 mmol/L 205-227 2070/08/22 carbon dioxide, venous blood 28.4 mmol/L 21.0-32.0 [...] mg/g {creat} 0-29 cholesterol, serum 263 mg/dL 632-157 1513/08/22 triglyceride, serum, fasting 1312 mg/dL 30-200 HDL [...] 80 mg/L 0-19 Office Visit: TCM from [facility] - Lab PSA (prostate specific antigent), recommendation and action PSA ordered Encounters Code Encounter Date Provider Facility CPT-86302 [id number] Vst-Est Level III 11:00:25 CDT Shavonne Feliciano PA-C [facility] CPT-64373 Level 3 Est. Patient 09:12:14 MANUFACTURING LAB TECHNICIAN Mima Erazo [facility] CPT-98596 Level 3 Est. Patient 16:52:51 CDT Vanessa Hickey MD [facility] CPT-42129 Level 3 Est. Patient 17:40:[address] [facility]-48811 Level 3 Est. Patient 14:34:52 CDT Vanessa Hickey MD [facility] CPT-21947 Level 3 Est. Patient 16:27:51 CDT Mima Erazo [facility] CPT-63175 Level 3 Est. Patient 14:39:00 MANUFACTURING LAB TECHNICIAN Vanessa Hickey MD [facility]-01970 Level 2 Est. Patient 18:43:34 CDT Mima Erazo [facility] CPT-18330 Level 3 Est. Patient 16:22:09 CDT Cherelle Avila [facility] CPT-40404 Level 4 Est. Patient 17:55:14 CDT Mima Erazo [facility] CPT-83504 Level 2 Est. Patient 17:13:21 CDT Alina Castaneda MD [facility]-59389 Level 3 Est. Patient 14:46:15 CDT Vanessa Hickey MD [facility]-82147 Level 3 Est. Patient 09:34:56 CDT Alina Castaneda MD [facility]-63833 Level 3 Est. Patient 21:40:19 CDT Mima Erazo [facility] CPT-01613 Level 3 Est. Patient 09:26:40 CDT Marvel Charles [facility]-98018 Level 3 Est. Patient 12:36:43 CDT Vanessa Hickey MD [facility]-26463 Level 3 Est. Patient 12:57:49 CDT Vanessa Hickey MD [facility]-46386 Level 3 Est. Patient 00:28:25 CDT Alina Castaneda MD [facility]-71343 Level 2 Est. Patient 12:52:14 CDT Alina Castaneda MD [facility]25819 Level 3 Est. Patient 11:51:18 MANUFACTURING LAB TECHNICIAN Alina Castaneda MD [facility]-80059 Level 3 Est. Patient 10:09:22 MANUFACTURING LAB TECHNICIAN Alina Castaneda MD PhD [facility] CPT-02725 Level 3 Est. Patient 14:36:26 MANUFACTURING LAB TECHNICIAN Marvel Gurdeepajayestela [facility]-92492 Level 3 Est. Patient 13:34:47 MANUFACTURING LAB TECHNICIAN Alina Castaneda MD [facility]-51006 Level 3 Est. Patient 19:52:08 MANUFACTURING LAB TECHNICIAN Alina Castaneda MD [facility]-52981 Level 3 Est. Patient 10:01:51 MANUFACTURING LAB TECHNICIAN Marvel Gurdeepajayestela [facility]-51425 Level 3 Est. Patient 21:54:06 CDT Vanessa Hickey MD [facility]-77453 Level 3 Est. Patient 08:54:46 CDT Alina Castaneda MD [facility]-07861 Level 3 Est. Patient 09:32:11 [facility]T [facility]-03886 Level 3 Est. Patient 12:02:49 CDT Alina Castaneda MD [facility]-68158 Level 3 Est. Patient 19:17:33 CDT Alina Castaneda MD [facility]-23380 Level 3 Est. Patient 13:19:10 CDT Brooksjohn Charles [facility]-47956 Level 3 Est. Patient 08:20:05 CDT Alina Castaneda MD PhD [facility]-26386 Level 3 Est. Patient 15:17:18 CDT Alina Castaneda MD [facility]-98900 Level 3 Est. Patient 14:25:36 MANUFACTURING LAB TECHNICIAN [facility] Araceli [facility]-60829 Level 3 Est. Patient 10:09:15 MANUFACTURING LAB TECHNICIAN [facility] Araceli [facility]-53285 Level 3 Est. Patient 21:28:43 CDT Alina Castaneda MD [facility]-89606 Level 3 Est. Patient 15:20:11 CDT Marvel Charles [facility]-85091 Level 4 Est. Patient 19:08:12 CDT Alina Castaneda MD [facility]-73340 Level 3 Est. Patient 15:06:39 CDT Marvel Charles [facility]-37628 Level 4 Est. Patient 17:48:15 CDT Alina Castaneda MD [facility]-58425 Level 3 Est. Patient 14:53:49 CDT Alina Castaneda MD [facility]-81511 Level 3 Est. Patient 09:35:16 CDT Alina Castaneda MD [facility]-95781 Level 3 Est. Patient 12:23:22 CDT Alina Castaneda MD [facility]-75802 Level 3 Est. Patient 16:19:15 CDT Alina Castaneda MD [facility]-16560 Level 3 Est. Patient 21:39:56 MANUFACTURING LAB TECHNICIAN Alina Castaneda MD [facility]-16504 Level 4 Est. Patient 14:12:56 MANUFACTURING LAB TECHNICIAN Alina Castaneda MD [facility]-31282 Level 2 Est. Patient 15:34:57 MANUFACTURING LAB TECHNICIAN Alina Castaneda MD [facility]-69940 Level 3 Est. Patient 12:17:04 MANUFACTURING LAB TECHNICIAN Alina Castaneda MD [facility]-82008 Level 3 Est. Patient 09:18:18 MANUFACTURING LAB TECHNICIAN Marvel Charles [facility]-83790 Level 2 Est. Patient 21:50:24 CDT Alina Castaneda MD [facility]-77688 Level 3 Est. Patient 09:17:28 CDT Marvel Charles [facility]-53426 Level 4 Est. Patient 18:54:02 CDT Alina Castaneda MD [facility]-86401 Level 3 Est. Patient 10:47:10 CDT Alina Castaneda MD [facility]-97883 Level 3 Est. Patient 09:22:20 CDT [place] Araceli [facility]-64904 Level 3 Est. Patient 16:39:[address] [facility]-27195 Level 3 Est. Patient 16:05:16 CDT Alina Castaneda MD [facility]-94797 Level 3 Est. Patient 00:29:15 CDT Alina Castaneda MD [facility]-01006 Level 3 Est. Patient 10:49:22 MANUFACTURING LAB TECHNICIAN [place] Araceli [facility]-35510 Level 3 Est. Patient 21:30:19 MANUFACTURING LAB TECHNICIAN Alina Castaneda MD [facility]-25934 Level 4 Est. Patient 17:04:11 MANUFACTURING LAB TECHNICIAN Brooksjohn Charles [facility]-90003 Level 3 Est. Patient 15:34:11 MANUFACTURING LAB TECHNICIAN Marvel Charles [facility]-75253 Level 2 Est. Patient 12:51:58 MANUFACTURING LAB TECHNICIAN Alina Castaneda MD [facility]-67546 Level 3 Est. Patient 13:20:01 MANUFACTURING LAB TECHNICIAN Alina Castaneda MD [facility]-25492 Level 3 Est. Patient 09:23:35 CDT Alina Castaneda MD PhD [facility] Procedures Code Procedure Name Date Entry Date Standard Description CPT-01437 Level 3 Long Term 13:20:19 CDT CPT-TCMM Transitional Care Mgmt-Moderate 12:32:19 CDT CPT-27235 Level 2 Long Term 09:01:11 CDT CPT-98010 HGBA1C - LAB USE ONLY 09:30:27 MANUFACTURING LAB TECHNICIAN CPT-37550 BMP - LAB USE ONLY 09:30:27 MANUFACTURING LAB TECHNICIAN CPT-69592 Venipuncture Draw Fee 09:30:26 MANUFACTURING LAB TECHNICIAN CPT-TCMM Transitional Care Mgmt-Moderate 10:25:31 CDT CPT-63548 Bladder Scan 14:34:53 CDT CPT-00647 Bladder Scan 14:39:01 MANUFACTURING LAB TECHNICIAN CPT-TCMM Transitional Care Mgmt-Moderate 10:30:19 MANUFACTURING LAB TECHNICIAN CPT-48586 Bladder Scan 12:36:44 CDT CPT-97968 Bladder Scan 21:54:06 CDT CPT-G0008 Administration of Influenza Virus Vaccine 13:05:26 CDT CPT-29073 Fluzone Quadrivalent Intramuscular Suspension 0.5 ML 13: 05:26 CDT CPT-25891 Administration single or combination vaccine inc oral 11 :49:51 CDT CPT-25652 Pneumovax 11:49:51 CDT CPT-39042 Ribs unilateral 2V 12:37:22 MANUFACTURING LAB TECHNICIAN CPT-82839 Chest 2V Frontal and Lat 17:15:26 CDT CPT-40683 Abx/Therapy Injection 18:54:02 CDT CPT-J0696 Rocephin 1000 mg (Ceftriaxone) 16:00:32 CDT CPT-64630 Chest 2V Frontal and Lat 15:26:45 CDT CPT-35497 Chest 2V Frontal and Lat 10:23:27 CDT CPT-45139 Venipuncture Draw Fee 10:11:00 CDT CPT-31623 Administration single or combination vaccine inc oral 11 :56:38 CDT CPT-30040 Influenza split virus > age 3 11:56:38 CDT CPT-46083 Venipuncture Draw Fee 08:49:54 MANUFACTURING LAB TECHNICIAN CPT-37414 EKG Trac and Interp 17:54:19 MANUFACTURING LAB TECHNICIAN
--- OUTSIDE RECORDS SUMMARY | 2018-07-02 12:35 | XMS REPORT | Clinical Summary ---
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 Diabetes mellitus without mention of complication, type [...] NOSE ICD-873.20 Inactive Alina Castaneda MD PhD HYPERTENSION ICD-401.9 [...] LESION ICD-709.9 Inactive Alina Castaneda MD PhD DIABETES, TYPE 2 ICD-250.00 Inactive Alina Castaneda MD PhD DIABETIC HYPOGLYCEMIA, [...] MD PHARYNGITIS ICD-462 Inactive Mason Loredo MD SINUSITIS, ACUTE ICD-461.9 Inactive Alina Castaneda MD PhD Hypoglycemia ICD-251.2 Inactive Alina Castaneda MD PhD Medication List Medication Instructions Start Date Stop Date Generic Name NDC Status Provider Patient Instruction SEROQUEL 100 MG ORAL TABLET 1 tab daily QUETIAPINE FUMARATE 77138551403 No Longer Active Shavonne Feliciano PA-C Active SEROQUEL 25 MG ORAL TABLET Take two tabs by mouth in the morning, take 4 tablets at night QUETIAPINE FUMARATE 27307140784 Active Shavonne Feliciano PA-C Active [facility] MELATONIN 3 MG ORAL TABLET give 1 tab by mouth at HS MELATONIN 38816368899 No Longer Active Gabrielleadrienne Marquez MA Active NOVOLOG FLEXPEN 100 UNIT/ML SUBCUTANEOUS SOLUTION PEN-INJECTOR sliding scale INSULIN ASPART 09920305155 Active Gabrielle Alma NOEL Active METFORMIN HCL 1000 MG ORAL TABLET 1 tab by mouth BID METFORMIN HCL 97100099597 Active Gabrielleadrienne Marquez MA Active [facility] MELATONIN 3 MG ORAL TABLET 1 tab nightly MELATONIN 96547267676 Active Gabrielle Littleananda BERT Active TAMSULOSIN HCL 0.4 MG ORAL CAPSULE give 2 capsules PO each evening TAMSULOSIN HCL 30777246407 No Longer Active Gabrielle Littleananda BERT Active VITAMIN D 2000 UNIT ORAL CAPSULE Take one by mouth daily CHOLECALCIFEROL 19730820124 No Longer Active Gabrielle Littleananda BERT Active LATUDA 40 MG ORAL TABLET 1.5 tab by mouth in the afternoon LURASIDONE HCL 77007986206 Active Gabrielle Littleananda BERT Active LEVEMIR 100 UNIT/ML SUBCUTANEOUS SOLUTION 10 u at bedtime INSULIN DETEMIR 09791357627 Active Gabrielle Littleananda BERT Active TAMSULOSIN HCL 0.4 MG ORAL CAPSULE 2 every night for urine flow TAMSULOSIN HCL 44685205945 Active Gabrielle Marquez MA Active DIVALPROEX SODIUM 125 MG ORAL TABLET DELAYED RELEASE 1 tab each morning 02/17 DIVALPROEX SODIUM 28600911142 Active Gabrielle Marquez MA Active D 1000 TABLET 2 tab by mouth BID CHOLECALCIFEROL TABS 99998452425 Active Gabrielle Marquez MA Active ALIGN 4 MG ORAL CAPSULE 1 tab at hs PROBIOTIC PRODUCT 28101922216 Active Gabrielle Marquez MA Active CLONAZEPAM 1 MG ORAL TABLET 1 pill by mouth two times daily CLONAZEPAM 10294725504 Active Gabrielle Marquez MA Active FENOFIBRATE 160 MG ORAL TABLET Take 1 tablet by mouth daily FENOFIBRATE 41267336604 Active Mya Ledezma MA Active OCEAN NASAL SPRAY SOLUTION 2 sprays in both nostrils every 8 hours as needed for dry mucous membranes SALINE SOLN 55601960210 Active Mason Loredo MD Active BETHANECHOL CHLORIDE 25 MG ORAL TABLET Take 1 tablet mouth four times a day BETHANECHOL CHLORIDE 45600002086 Active Mason Loredo MD Active [facility] LUBRICANT EYE DROPS 0.4-0.3 % OPHTHALMIC SOLUTION POLYETHYL GLYCOL-PROPYL GLYCOL 25871693150 No Longer Active Mason Loredo MD Active TYLENOL 8 HOUR 650 MG ORAL TABLET EXTENDED RELEASE 1 tab QID prn ACETAMINOPHEN 32497372605 No Longer Active Mason Loredo MD Active TOPAMAX 25 MG ORAL TABLET 1 tab BID PRN TOPIRAMATE 94519412808 Active Mason Loredo MD Active TIMOPTIC OCUDOSE 0.5 % OPHTHALMIC SOLUTION instill one drop into both eyes q12H TIMOLOL MALEATE 12272548422 Active Mason Loredo MD Active TRAZODONE HCL 100 MG ORAL TABLET 1 every night to prevent headaches TRAZODONE HCL 84806495416 No Longer Active Mason Loredo MD Active TRAVATAN Z 0.004 % OPHTHALMIC SOLUTION 1 drop each eye daily 2017 TRAVOPROST 73857676627 No Longer Active Mason Loredo MD Active LATUDA 60 MG ORAL TABLET 1 tab daily LURASIDONE HCL 02306420367 No Longer Active Mason Loredo MD Active MORPHINE SULFATE ER 30 MG ORAL TABLET EXTENDED RELEASE Take one capsule BID MORPHINE SULFATE 17156811354 No Longer Active Mason Loredo MD Active TRUE METRIX BLOOD GLUCOSE TEST IN VITRO STRIP Check blood sugars 3x/day. 2015 GLUCOSE BLOOD 25250266569 No Longer Active Mason Loredo MD Active TRUEPLUS LANCETS 30G 3x a day LANCETS 53018045271 No Longer Active Mason Loredo MD Active MYLANTA GAS RELIEF MAXIMUM STR 125 MG ORAL CAPSULE 30cc every 4 hours prn SIMETHICONE 69629701016 No Longer Active Mason Loredo MD Active IMODIUM A-D 2 MG ORAL TABLET 1 tab QID as needed LOPERAMIDE HCL 00454054435 No Longer Active Mason Loredo MD Active FLONASE ALLERGY RELIEF 50 MCG/ACT NASAL SUSPENSION One spray each nostril BID x 1 week then daily FLUTICASONE PROPIONATE 68044923563 No Longer Active Mason Loredo MD Active FLUVOXAMINE MALEATE 100 MG ORAL TABLET take one tab every AM et HS, and take 1 /2 tab at noon FLUVOXAMINE MALEATE 18069655424 No Longer Active Mason Loredo MD Active BD PEN NEEDLE MINI U/F 31G X 5 MM 4 a day INSULIN PEN NEEDLE 07806704574 No Longer Active Mason Loredo MD Active AMITIZA 24 MCG ORAL CAPSULE Take one capsule BID for constipation LUBIPROSTONE 48300084779 No Longer Active Mason Loredo MD Active TRUEPLUS LANCETS 30G 3 a day LANCETS 22757474931 No Longer Active Mason Loredo MD Active CORICIDIN HBP CONGESTION/COUGH 10-200 MG ORAL CAPSULE Take as directed on box as needed for cold/flu symptoms DEXTROMETHORPHAN- GUAIFENESIN 68432491483 No Longer Active Mason Loredo MD Active OMEGA-3 300 MG ORAL CAPSULE 4 caps by mouth daily OMEGA-3 FATTY ACIDS 11112190379 No Longer Active Mason Loredo MD Active HUMALOG KWIKPEN 100 UNIT/ML SUBCUTANEOUS SOLUTION PEN-INJECTOR sliding scale if needed INSULIN LISPRO (HUMAN) 39479483045 No Longer Active Mason Loredo MD Active TRUETEST TEST IN VITRO STRIP check blood sugars 3x/day GLUCOSE BLOOD 83366193847 No Longer Active Mason Loredo MD Active ALFUZOSIN HCL ER 10 MG ORAL TABLET EXTENDED RELEASE 24 HOUR 1 tablet daily ALFUZOSIN HCL 38042007247 No Longer Active Mason Loredo MD Active BD INSULIN SYRINGE 28G X 1/2" 1 ML 1 four times per day INSULIN SYRINGE-NEEDLE U-100 86157021624 No Longer Active Mason Loredo MD Active LEVEMIR FLEXTOUCH 100 UNIT/ML SUBCUTANEOUS SOLUTION PEN-INJECTOR 60 units SQ each evening, for diabetes INSULIN DETEMIR 52155623559 No Longer Active Mason Loredo MD Active LACTULOSE 20 GM/30ML ORAL SOLUTION give 30 Ml PO BID PRN LACTULOSE 76496638428 Active Mason Loredo MD Active COLACE 100 MG ORAL CAPSULE 1 tab BID PRN DOCUSATE SODIUM 64761216112 Active Mason Loredo MD Active LATANOPROST 0.005 % OPHTHALMIC SOLUTION instill 1 drop in both eyes at bed time LATANOPROST 75124068628 Active Mason Loredo MD Active AMARYL 2 MG ORAL TABLET give 2.5 tabs PO daily GLIMEPIRIDE 61984454216 Active Mason Loredo MD Active MIRALAX ORAL POWDER 17g by mouth q12h, for constipation POLYETHYLENE GLYCOL 3350 12125087527 Active Mason Loredo MD Active IBUPROFEN 400 MG ORAL TABLET 1 tab Q6H PRN IBUPROFEN 79835658912 Active Mason Loredo MD Active EFFEXOR XR 37.5 MG ORAL CAPSULE EXTENDED RELEASE 24 HOUR Take one by mouth daily VENLAFAXINE HCL 76198378121 Active Mima Erazo APRN Active FLUVOXAMINE MALEATE 50 MG ORAL TABLET 1 tab by mouth daily 04/01 FLUVOXAMINE MALEATE 05386750341 No Longer Active Mima Erazo APRN Active TRUE METRIX METER w/Device KIT Check blood sugars 3x/day BLOOD GLUCOSE MONITORING SUPPL 81439808543 Active Marvel Charles 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 HANDLING 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 LATUDA 60 MG ORAL TABLET Take one by mouth daily LURASIDONE HCL 13540995215 No Longer Active Mima Erazo APRN Active [facility] MILK OF MAGNESIA 400 MG/5ML ORAL SUSPENSION 30ml by mouth bid prn MAGNESIUM HYDROXIDE 81835133624 Active Mason Loredo MD Active TRAVATAN Z 0.004 % OPHTHALMIC SOLUTION 1 gtt each eye daily TRAVOPROST 57546352225 No Longer Active Mason Loredo MD Active LISINOPRIL 20 MG ORAL TABLET 1 BID LISINOPRIL 53137391201 No Longer Active Mason Loredo MD Active ZOLPIDEM TARTRATE 10 MG ORAL TABLET take at bedtime ZOLPIDEM TARTRATE 05496546569 No Longer Active Mason Loredo MD Active HYDROCODONE-ACETAMINOPHEN 5-325 MG ORAL TABLET 2 tabs by mouth three times daily for pain HYDROCODONE-ACETAMINOPHEN 36552028767 No Longer Active Mason Loredo MD Active ZOFRAN 4 MG ORAL TABLET 1 po q4hr PRN Nausea ONDANSETRON HCL 22871547585 No Longer Active Mason Loredo MD Active LOMOTIL 2.5-0.025 MG ORAL TABLET take 1-2 tabs PO after each stool, no more than 8 in 24 hours DIPHENOXYLATE-ATROPINE 66609482959 No Longer Active Mason Loredo MD Active COLACE 100 MG ORAL CAPSULE 1 pill by mouth twice daily, for constipation 2014 DOCUSATE SODIUM 61973584515 No Longer Active Mima Erazo APRN Active TOLTERODINE TARTRATE 2 MG ORAL TABLET 1 pill twice daily, for bladder TOLTERODINE TARTRATE 47071105342 No Longer Active Vanessa Hickey MD Active AMITIZA 24 MCG ORAL CAPSULE Take one capsule BID for constipation. LUBIPROSTONE 49589429540 No Longer Active Vanessa Hickey MD Active METOPROLOL SUCCINATE ER 100 MG ORAL TABLET EXTENDED RELEASE 24 HOUR 1 by mouth daily for blood pressure METOPROLOL SUCCINATE 13599213531 No Longer Active Grace Nascimento RMA Active METFORMIN HCL ER 500 MG ORAL TABLET EXTENDED RELEASE 24 HOUR Take three tablets by mouth everyday METFORMIN HCL 38592397890 No Longer Active Grace Nelsonb RMA Active LOVAZA 1 GM ORAL CAPSULE 4 daily (for triglycerides) [id number] ETHYL ESTERS 07566936262 No Longer Active Grace Azam RMA Active TRAZODONE HCL 100 MG ORAL TABLET 1 tab by mouth for sleep TRAZODONE HCL 41852211035 No Longer Active Grace Azam RMA Active NOVOFINE 32G X 6 MM use one four times per day INSULIN PEN NEEDLE 96374303055 No Longer Active Grace Azam RMA Active BACTROBAN 2 % EXTERNAL CREAM Apply to affected area BID for up to 10 days MUPIROCIN CALCIUM 58477571519 No Longer Active Grace Azam RMA Active KEFLEX 500 MG ORAL CAPSULE 1 po BID x 7 days CEPHALEXIN 35097036391 No Longer Active Cherelle Avila APRN Active FLUVOXAMINE MALEATE 100 MG ORAL TABLET Take one (1) tablet by mouth am, 1/2 at noon FLUVOXAMINE MALEATE 87093172110 No Longer Active Mima Erazo APRN Active FLUVOXAMINE MALEATE 100 MG ORAL TABLET Take 1/2 tab at noon 03/04 FLUVOXAMINE MALEATE 22650613841 No Longer Active Cherelle Avila APRN Active ACCU-CHEK ROSA DEVICE Use device to check blood sugars BLOOD GLUCOSE MONITORING SUPPL 86868198872 No Longer Active Marvel Araceli MARROQUIN Active ACCU-CHEK ROSA IN VITRO STRIP use strips with device to check blood sugars 3 times daily GLUCOSE BLOOD 69422958100 No Longer Active Marvel Mackenzieajayari MATERIAL HANDLING SUPERVISOR Active VERAPAMIL HCL ER 180 MG ORAL TABLET EXTENDED RELEASE 1 pill by mouth twice daily, for migraine prevention VERAPAMIL HCL 99117664043 Active Mima Erazo APRN Active CYCLOBENZAPRINE HCL 10 MG ORAL TABLET 1 tablet by mouth three times daily, scheduled CYCLOBENZAPRINE HCL 93508869309 No Longer Active Alina Castaneda MD PhD Active HUMALOG 100 UNIT/ML SUBCUTANEOUS SOLUTION Take 20 units with breakfast, 10u with lunch and suppetr. INSULIN LISPRO (HUMAN) 41711514132 No Longer Active Alina Castaneda MD PhD Active TRUETEST TEST IN VITRO STRIP check sugars 4x/day GLUCOSE BLOOD 81460114178 No Longer Active Alina Castaneda MD PhD Active MORPHINE SULFATE 30 MG ORAL TABLET 1 pill by mouth twice daily, for pain 2013 MORPHINE SULFATE 73768944649 No Longer Active Mason Loredo MD Active ACYCLOVIR 400 MG ORAL TABLET 1 pill three times daily x 5 days, for cold sore outbreak ACYCLOVIR 58239347203 No Longer Active Alina Castaneda MD PhD Active PENICILLIN V POTASSIUM 500 MG ORAL TABLET 1 pill by mouth three times daily PENICILLIN V POTASSIUM 96200239229 No Longer Active Alina Castaneda MD PhD Active UROXATRAL 10 MG ORAL TABLET EXTENDED RELEASE 24 HOUR Take 1 tablet by mouth daily ALFUZOSIN HCL 66145243811 No Longer Active Alina Castaneda MD PhD Active THIOTHIXENE 5 MG ORAL CAPSULE by mouth twice a day THIOTHIXENE 92861358430 No Longer Active Alina Castaneda MD PhD Active ZYPREXA 7.5 MG ORAL TABLET 1 at HS OLANZAPINE 32455027804 No Longer Active Alina Castaneda MD PhD Active DETROL LA 4 MG ORAL CAPSULE EXTENDED RELEASE 24 HOUR Take 1 tablet by mouth daily TOLTERODINE TARTRATE 90837880976 No Longer Active Alina Castaneda MD PhD Active TERESE CONTOUR TEST IN VITRO STRIP monitor blood sugars 3x/day GLUCOSE BLOOD 19734249240 No Longer Active Alina Castaneda MD PhD Active EQL TRUETEST TEST IN VITRO STRIP Test blood sugar TID GLUCOSE BLOOD 01632593833 No Longer Active Alina Castaneda MD PhD Active FLUTICASONE PROPIONATE 50 MCG/ACT NASAL SUSPENSION 2 sprays each nostril qDay x 30 days FLUTICASONE PROPIONATE 70952157650 No Longer Active Alina Castaneda MD PhD Active IBUPROFEN 200 MG ORAL TABLET 1 Q 6 hr. PRN IBUPROFEN 15756814336 No Longer Active Alina Castaneda MD PhD Active NIACIN ER 500 MG ORAL TABLET EXTENDED RELEASE 4 qHS (for triglycerides) 01/13 NIACIN 20132337945 No Longer Active Alina Castaneda MD PhD Active SAPHRIS 5 MG SUBLINGUAL TABLET SUBLINGUAL by mouth twice a day ASENAPINE MALEATE 37693946867 No Longer Active Maljohn MARROQUIN Active ACETAMINOPHEN 500 MG ORAL TABLET 2 Q 6 hr. PRN ACETAMINOPHEN 89347004078 No Longer Active Malihnivia Ziglari MATERIAL HANDLING SUPERVISOR Active ORPHENADRINE CITRATE ER 100 MG ORAL TABLET EXTENDED RELEASE 12 HOUR 1 every 12 hr. as needed ORPHENADRINE CITRATE 31026280598 No Longer Active Alina Castaneda MD PhD Active NIACIN ER 500 MG ORAL TABLET EXTENDED RELEASE 2 qHS NIACIN 50801694667 No Longer Active Alina Castaneda MD PhD Active AMOXICILLIN 500 MG ORAL CAPSULE 2 po BID x 10 days AMOXICILLIN 55474741626 No Longer Active Alina Castaneda MD PhD Active HYDROCODONE-ACETAMINOPHEN 7.5-325 MG ORAL TABLET 1 four times a day as needed for pain HYDROCODONE-ACETAMINOPHEN 75259574815 No Longer Active Alina Castaneda MD PhD Active DOXEPIN HCL 10 MG ORAL CAPSULE Take 1 tablet by mouth daily DOXEPIN HCL 16897179443 No Longer Active Salina Han A Active NAVANE 10 MG CAPS 1/2 tablet twice a day THIOTHIXENE No Longer Active Salina ROBBINSA Active CYCLOBENZAPRINE HCL 10 MG ORAL TABLET 1/2 tablet by mouth every 8 hours as needed for muscle spasms CYCLOBENZAPRINE HCL 64283582883 No Longer Active Alina Castaneda MD PhD Active BACTROBAN 2 % EXTERNAL CREAM apply to ear and nose twice daily MUPIROCIN CALCIUM 96140921281 No Longer Active Alina Castaneda MD PhD Active HYDROCODONE-ACETAMINOPHEN 5-325 MG ORAL TABLET take one tablet by mouth every four hours as needed for pain HYDROCODONE-ACETAMINOPHEN 50008790352 No Longer Active Alina Castaneda MD PhD Active ZYPREXA 5 MG ORAL TABLET take one tablet by mouth every evening OLANZAPINE 68299552492 No Longer Active Alina Castaneda MD PhD Active ALBUTEROL SULFATE (2.5 MG/3ML) 0.083% INHALATION NEBULIZATION SOLUTION one vial per nebulizer TID and PRN cough/soa ALBUTEROL SULFATE 08147943268 No Longer Active Alina Castaneda MD PhD Active GUAIFENESIN ER 600 MG ORAL TABLET EXTENDED RELEASE 12 HOUR 1 tablet by mouth twice daily if needed for cough GUAIFENESIN 22366694322 No Longer Active Marvel MARROQUIN Active AZITHROMYCIN 500 MG INTRAVENOUS SOLUTION RECONSTITUTED 1 po q day AZITHROMYCIN 95264853533 No Longer Active Alina Castaneda MD PhD Active PROMETHAZINE-CODEINE 6.25-10 MG/5ML ORAL SYRUP 1 tsp po q 6 hours prn cough PROMETHAZINE-CODEINE 36922889844 No Longer Active Alina Castaneda MD PhD Active CEFDINIR 300 MG ORAL CAPSULE by mouth twice a day CEFDINIR 28606303490 No Longer Active Alina Castaneda MD PhD Active METFORMIN HCL ER 500 MG ORAL TABLET EXTENDED RELEASE 24 HOUR Take 3 tablets by mouth everyday METFORMIN HCL 64483788304 No Longer Active Alina Castaneda MD PhD Active LEVEMIR 100 UNIT/ML SUBCUTANEOUS SOLUTION 90 units SQ qHS INSULIN DETEMIR 91056131646 No Longer Active Marvel MARROQUIN Active TOPROL XL 100 MG ORAL TABLET EXTENDED RELEASE 24 HOUR 1 @ HS METOPROLOL SUCCINATE 88106539975 No Longer Active Marvel MARROQUIN Active ALLOPURINOL 300 MG ORAL TABLET Take one by mouth daily ALLOPURINOL 94654341063 Active Mima Erazo LAND DEVELOPMENT MANAGER Active ZYPREXA 10 MG ORAL TABLET Take one by mouth daily OLANZAPINE 64317419706 No Longer Active Alina Castaneda MD PhD Active NOVOLOG 100 UNIT/ML SUBCUTANEOUS SOLUTION 40 units with every meal INSULIN ASPART 49573472403 No Longer Active Alina Castaneda MD PhD Active VERAPAMIL HCL ER 120 MG ORAL TABLET EXTENDED RELEASE 1 qPM 09/08 VERAPAMIL HCL 46328012554 No Longer Active Salina ROJAS Active ZYPREXA 15 MG ORAL TABLET Take 1 tablet by mouth daily OLANZAPINE 13531382839 No Longer Active Marvel MARROQUIN Active ALBUTEROL SULFATE (2.5 MG/3ML) 0.083% INHALATION NEBULIZATION SOLUTION 1 neb tid and prn cough ALBUTEROL SULFATE 20907857488 No Longer Active Alina Castaneda MD PhD Active LANTUS 100 UNIT/ML SUBCUTANEOUS SOLUTION 60 units sq q hs INSULIN GLARGINE 34033822910 No Longer Active CRYSTAL Suarez Active ACETAMINOPHEN 500 MG ORAL TABLET 2 Q 6 hr. PRN ACETAMINOPHEN 500 MG ORAL TABLET 625274 ACETAMINOPHEN Inactive ALBUTEROL SULFATE (2.5 MG/3ML) 0.083% INHALATION NEBULIZATION SOLUTION one vial per nebulizer TID and PRN cough/soa ALBUTEROL SULFATE (2.5 MG/3ML) 0.083% INHALATION NEBULIZATION SOLUTION 343165 ALBUTEROL SULFATE Inactive ALBUTEROL SULFATE (2.5 MG/3ML) 0.083% INHALATION NEBULIZATION SOLUTION 1 neb tid and prn cough ALBUTEROL SULFATE (2.5 MG/3ML) 0.083% INHALATION NEBULIZATION SOLUTION 972281 ALBUTEROL SULFATE Inactive AMOXICILLIN 500 MG ORAL CAPSULE 2 po BID x 10 days AMOXICILLIN 500 MG ORAL CAPSULE 913941 AMOXICILLIN Inactive COLACE 100 MG ORAL CAPSULE 1 pill by mouth twice daily, for constipation 2014 COLACE 100 MG ORAL CAPSULE 9806781 DOCUSATE SODIUM Inactive CYCLOBENZAPRINE HCL 10 MG ORAL TABLET 1/2 tablet by mouth every 8 hours as needed for muscle spasms CYCLOBENZAPRINE HCL 10 MG ORAL TABLET 704141 CYCLOBENZAPRINE HCL Inactive CYCLOBENZAPRINE HCL 10 MG ORAL TABLET 1 tablet by mouth three times daily, scheduled CYCLOBENZAPRINE HCL 10 MG ORAL TABLET 496408 CYCLOBENZAPRINE HCL Inactive DOXEPIN HCL 10 MG ORAL CAPSULE Take 1 tablet by mouth daily DOXEPIN HCL 10 MG ORAL CAPSULE 2800236 DOXEPIN HCL Inactive IBUPROFEN 200 MG ORAL TABLET 1 Q 6 hr. PRN IBUPROFEN 200 MG ORAL TABLET 346585 IBUPROFEN Inactive IMODIUM A-D 2 MG ORAL TABLET 1 tab QID as needed IMODIUM A-D 2 MG ORAL TABLET 256882 LOPERAMIDE HCL Inactive KEFLEX 500 MG ORAL CAPSULE 1 po BID x 7 days KEFLEX 500 MG ORAL CAPSULE 712992 CEPHALEXIN Inactive LISINOPRIL 20 MG ORAL TABLET 1 BID LISINOPRIL 20 MG ORAL TABLET 442361 LISINOPRIL Inactive LOMOTIL 2.5-0.025 MG ORAL TABLET take 1-2 tabs PO after each stool, no more than 8 in 24 hours LOMOTIL 2.5-0.025 MG ORAL TABLET 3372985 DIPHENOXYLATE-ATROPINE Inactive NAVANE 10 MG CAPS 1/2 [...] PENICILLIN V POTASSIUM 500 MG ORAL TABLET 040877 PENICILLIN V POTASSIUM Inactive PROMETHAZINE-CODEINE 6.25-10 MG/5ML ORAL SYRUP 1 tsp po q 6 hours prn cough PROMETHAZINE-CODEINE 6.25-10 MG/5ML ORAL SYRUP 784024 PROMETHAZINE-CODEINE Inactive THIOTHIXENE 5 MG ORAL CAPSULE by mouth twice a day THIOTHIXENE 5 MG ORAL CAPSULE 510120 THIOTHIXENE Inactive TRAZODONE HCL 100 MG ORAL TABLET 1 tab by mouth for sleep TRAZODONE HCL 100 MG ORAL TABLET 896858 TRAZODONE HCL Inactive TRAZODONE HCL 100 MG ORAL TABLET 1 every night to prevent headaches TRAZODONE HCL 100 MG ORAL TABLET 086452 TRAZODONE HCL Inactive ZOFRAN 4 MG ORAL TABLET 1 po q4hr PRN Nausea ZOFRAN 4 MG ORAL TABLET 932036 ONDANSETRON HCL Inactive ACYCLOVIR 400 MG ORAL TABLET 1 pill three times daily x 5 days, for cold sore outbreak ACYCLOVIR 400 MG ORAL TABLET 900797 ACYCLOVIR Inactive FLUVOXAMINE MALEATE 100 MG ORAL TABLET take one tab every AM et HS, and take 1 /2 tab at noon FLUVOXAMINE MALEATE 100 MG ORAL TABLET 493413 FLUVOXAMINE MALEATE Inactive FLUVOXAMINE MALEATE 100 MG ORAL TABLET Take 1/2 tab at noon 03/04 FLUVOXAMINE MALEATE 100 MG ORAL TABLET 648574 FLUVOXAMINE MALEATE Inactive FLUVOXAMINE MALEATE 100 MG ORAL TABLET Take one (1) tablet by mouth am, 1/2 at noon FLUVOXAMINE MALEATE 100 MG ORAL TABLET 764422 FLUVOXAMINE MALEATE Inactive FLUVOXAMINE MALEATE 50 MG ORAL TABLET 1 tab by mouth daily 04/01 FLUVOXAMINE MALEATE 50 MG ORAL TABLET 054860 FLUVOXAMINE MALEATE Inactive ZOLPIDEM TARTRATE 10 MG ORAL TABLET take at bedtime ZOLPIDEM TARTRATE 10 MG ORAL TABLET 419933 ZOLPIDEM TARTRATE Inactive VERAPAMIL HCL ER 120 [...] every evening ZYPREXA 5 MG ORAL TABLET 827973 OLANZAPINE Inactive ZYPREXA 7.5 MG ORAL TABLET 1 at HS ZYPREXA 7.5 MG ORAL TABLET 477574 OLANZAPINE Inactive ZYPREXA 10 MG ORAL TABLET Take one by mouth daily ZYPREXA 10 MG ORAL TABLET 995022 OLANZAPINE Inactive BD INSULIN SYRINGE 28G X 1/2" 1 ML 1 four times per day BD INSULIN SYRINGE 28G X 1/2" 1 ML INSULIN SYRINGE-NEEDLE U-100 Inactive AZITHROMYCIN 500 MG INTRAVENOUS SOLUTION RECONSTITUTED 1 po q day AZITHROMYCIN 500 MG INTRAVENOUS SOLUTION RECONSTITUTED 52715051487 AZITHROMYCIN Inactive SEROQUEL 100 MG ORAL TABLET 1 tab daily SEROQUEL 100 MG ORAL TABLET 855323 QUETIAPINE FUMARATE Inactive BACTROBAN 2 % EXTERNAL CREAM Apply to affected area BID for up to 10 days BACTROBAN 2 % EXTERNAL CREAM 758357 MUPIROCIN CALCIUM Inactive BACTROBAN 2 % EXTERNAL CREAM apply to ear and nose twice daily BACTROBAN 2 % EXTERNAL CREAM 974575 MUPIROCIN CALCIUM Inactive CEFDINIR 300 MG ORAL CAPSULE by mouth twice a day CEFDINIR 300 MG ORAL CAPSULE 635992 CEFDINIR Inactive TOLTERODINE TARTRATE 2 MG ORAL TABLET 1 pill twice daily, for bladder TOLTERODINE TARTRATE 2 MG ORAL TABLET 268843 TOLTERODINE TARTRATE Inactive ZYPREXA 15 MG ORAL TABLET Take 1 tablet by mouth daily ZYPREXA 15 MG ORAL TABLET 319638 OLANZAPINE Inactive METFORMIN HCL ER 500 MG [...] for pain HYDROCODONE-ACETAMINOPHEN 5-325 MG ORAL TABLET 143270 HYDROCODONE-ACETAMINOPHEN Inactive HYDROCODONE-ACETAMINOPHEN 5-325 MG ORAL TABLET take one tablet by mouth every four hours as needed for pain HYDROCODONE-ACETAMINOPHEN 5-325 MG ORAL TABLET 899058 HYDROCODONE-ACETAMINOPHEN Inactive HYDROCODONE-ACETAMINOPHEN 7.5-325 MG ORAL TABLET 1 four times a day as needed for pain HYDROCODONE-ACETAMINOPHEN 7.5-325 MG ORAL TABLET 158171 HYDROCODONE-ACETAMINOPHEN Inactive TYLENOL 8 HOUR 650 MG [...] days FLUTICASONE PROPIONATE 50 MCG/ACT NASAL SUSPENSION 2047566 FLUTICASONE PROPIONATE Inactive AMITIZA 24 MCG ORAL [...] (for triglycerides) LOVAZA 1 GM ORAL CAPSULE 186563 [id number] ETHYL ESTERS Inactive NOVOFINE 32G X 6 [...] HS [facility] MELATONIN 3 MG ORAL TABLET 897674 MELATONIN Inactive TERESE CONTOUR TEST IN VITRO STRIP monitor blood sugars 3x/day TERESE CONTOUR TEST IN VITRO STRIP GLUCOSE BLOOD Inactive SAPHRIS 5 MG SUBLINGUAL TABLET SUBLINGUAL by mouth twice a day SAPHRIS 5 MG SUBLINGUAL TABLET SUBLINGUAL ASENAPINE MALEATE Inactive TAMSULOSIN HCL 0.4 MG ORAL CAPSULE give 2 capsules PO each evening TAMSULOSIN HCL 0.4 MG ORAL CAPSULE 720873 TAMSULOSIN HCL Inactive [facility] LUBRICANT EYE DROPS 0.4-0.3 % OPHTHALMIC SOLUTION [facility] LUBRICANT EYE DROPS 0.4-0.3 % OPHTHALMIC SOLUTION POLYETHYL GLYCOL- PROPYL GLYCOL Inactive VITAMIN D 2000 UNIT ORAL CAPSULE Take one by mouth daily VITAMIN D 2000 UNIT ORAL CAPSULE CHOLECALCIFEROL Inactive TRUEPLUS LANCETS 30G 3x a day TRUEPLUS LANCETS 30G 03221277312 LANCETS Inactive TRUEPLUS LANCETS 30G 3 a day TRUEPLUS LANCETS 30G 89613771134 LANCETS Inactive EQL TRUETEST TEST IN VITRO [...] FLONASE ALLERGY RELIEF 50 MCG/ACT NASAL SUSPENSION 4723243 FLUTICASONE PROPIONATE Inactive Immunizations Vaccine Administration Date [...] Fluvirin, Fluarix, Agriflu(>=18 yo)) Fluzone (>3 yrs.) [[id number]] Influenza, seasonal, injectable pneumococcal immunization administered Pneumovax [...] ... - Chemistry sodium, serum 135 mmol/L 286-076 1996/08/22 carbon dioxide, venous blood 28.4 mmol/L 21.0-32.0 [...] mg/g {creat} 0-29 cholesterol, serum 263 mg/dL 814-864 0074/08/22 triglyceride, serum, fasting 1312 mg/dL 30-200 HDL [...] 80 mg/L 0-19 Office Visit: [facility] [place] - Lab PSA (prostate specific antigent), recommendation and action PSA ordered Encounters Code Encounter Date Provider Facility CPT-02492 [id number] Vst-Est Level III 11:00:25 CDT Shavonne Feliciano PA-C [facility] CPT-65446 Level 3 Est. Patient 09:12:14 INSERTER Mima Erazo [facility] CPT-55976 Level 3 Est. Patient 16:52:51 CDT Vanessa Hickey MD [facility] CPT-85296 Level 3 Est. Patient 17:40:16 CDT [facility]28 Level 3 Est. Patient 14:34:52 CDT Vanessa Hickey MD [facility] CPT-14699 Level 3 Est. Patient 16:27:51 CDT Mmia Erazo [facility] CPT-57768 Level 3 Est. Patient 14:39:00 INSERTER Vanessa Hickey MD [facility]-59360 Level 2 Est. Patient 18:43:34 CDT Mima Erazo [facility] CPT-72121 Level 3 Est. Patient 16:22:09 CDT Cherelle Avila [facility] CPT-81628 Level 4 Est. Patient 17:55:14 CDT Mima Erazo [facility] CPT-25879 Level 2 Est. Patient 17:13:21 CDT Alina Castaneda MD [facility]-08220 Level 3 Est. Patient 14:46:15 CDT Vanessa Hickey MD [facility]-75780 Level 3 Est. Patient 09:34:56 CDT Alina Castaneda MD [facility]-54160 Level 3 Est. Patient 21:40:19 CDT Mima Erazo [facility] CPT-84122 Level 3 Est. Patient 09:26:40 CDT Marvel [facility]-99774 Level 3 Est. Patient 12:36:43 CDT Vanessa Hickey MD [facility]-32727 Level 3 Est. Patient 12:57:49 CDT Vanessa Hickey MD [facility]-40707 Level 3 Est. Patient 00:28:25 CDT Alina Castaneda MD [facility]-61016 Level 2 Est. Patient 12:52:14 CDT Alina Castaneda MD [facility]65078 Level 3 Est. Patient 11:51:18 INSERTER Alina Castaneda MD [facility]-18283 Level 3 Est. Patient 10:09:22 INSERTER Alina Castaneda MD PhD [facility] CPT-17838 Level 3 Est. Patient 14:36:26 INSERTER Marvel Gurdeepajayestela [facility]-84743 Level 3 Est. Patient 13:34:47 INSERTER Alina Castaneda MD [facility]-73408 Level 3 Est. Patient 19:52:08 INSERTER Alina Castaneda MD [facility]-53349 Level 3 Est. Patient 10:01:51 INSERTER Marvel Gurdeepajayestela [facility]-53699 Level 3 Est. Patient 21:54:06 CDT Vanessa Hickey MD [facility]-41987 Level 3 Est. Patient 08:54:46 CDT Alina Castaneda MD [facility]-47884 Level 3 Est. Patient 09:32:11 CDT [facility]-45360 Level 3 Est. Patient 12:02:49 CDT Alina Castaneda MD [facility]-95754 Level 3 Est. Patient 19:17:33 CDT Alina Castaneda MD [facility]-19552 Level 3 Est. Patient 13:19:10 CDT Brooksjohn Charles [facility]-95920 Level 3 Est. Patient 08:20:05 CDT Alina Castaneda MD PhD [facility]-68025 Level 3 Est. Patient 15:17:18 CDT Alina Castaneda MD [facility]-10130 Level 3 Est. Patient 14:25:36 INSERTER [facility] Araceli [facility]-54203 Level 3 Est. Patient 10:09:15 INSERTER [facility] Araceli [facility]-87172 Level 3 Est. Patient 21:28:43 CDT Alina Castaneda MD [facility]-33764 Level 3 Est. Patient 15:20:11 CDT Marvel Charles [facility]-52472 Level 4 Est. Patient 19:08:12 CDT Alina Castaneda MD [facility]-90692 Level 3 Est. Patient 15:06:39 CDT Marvel Charles [facility]-46434 Level 4 Est. Patient 17:48:15 CDT Alina Castaneda MD [facility]-32976 Level 3 Est. Patient 14:53:49 CDT Alina Castaneda MD [facility]-92298 Level 3 Est. Patient 09:35:16 CDT Alina Castaneda MD [facility]-11068 Level 3 Est. Patient 12:23:22 CDT Alina Castaneda MD [facility]-49481 Level 3 Est. Patient 16:19:15 CDT Alina Castaneda MD [facility]-56884 Level 3 Est. Patient 21:39:56 INSERTER Alina Castaneda MD [facility]-99719 Level 4 Est. Patient 14:12:56 INSERTER Alina Castaneda MD [facility]-81261 Level 2 Est. Patient 15:34:57 INSERTER Alina Castaneda MD [facility]-46538 Level 3 Est. Patient 12:17:04 INSERTER Alina Castaneda MD [facility]-01403 Level 3 Est. Patient 09:18:18 INSERTER Marvel Charles [facility]-57626 Level 2 Est. Patient 21:50:24 CDT Alina Castaneda MD [facility]-30845 Level 3 Est. Patient 09:17:28 CDT Marvel Charles [facility]-48387 Level 4 Est. Patient 18:54:02 CDT Alina Castaneda MD [facility]-70496 Level 3 Est. Patient 10:47:10 CDT Alina Castaneda MD [facility]-93276 Level 3 Est. Patient 09:22:20 CDT [facility] Araceli [facility]-57127 Level 3 Est. Patient 16:39:43 CDT [facility]-76759 Level 3 Est. Patient 16:05:16 CDT Alina Castaneda MD [facility]-87925 Level 3 Est. Patient 00:29:15 CDT Alina Castaneda MD [facility]-56464 Level 3 Est. Patient 10:49:22 INSERTER [place] Araceli [facility]-21984 Level 3 Est. Patient 21:30:19 INSERTER Alina Castaneda MD [facility]-16790 Level 4 Est. Patient 17:04:11 INSERTER Brooksjohn Charles [facility]-97016 Level 3 Est. Patient 15:34:11 INSERTER Marvel Charles [facility]-12413 Level 2 Est. Patient 12:51:58 INSERTER Alina Castaneda MD [facility]-09752 Level 3 Est. Patient 13:20:01 INSERTER Alina Castaneda MD [facility]-27932 Level 3 Est. Patient 09:23:35 CDT Alina Castaneda MD PhD [facility] Procedures Code Procedure Name Date Entry Date Standard Description CPT-88717 Level 3 Long-Term 13:20:19 CDT CPT-TCMM Transitional Care Mgmt-Moderate 12:32:19 CDT CPT-80245 Level 2 Long-Term 09:01:11 CDT CPT-62572 HGBA1C - LAB USE ONLY 09:30:27 INSERTER CPT-62806 BMP - LAB USE ONLY 09:30:27 INSERTER CPT-11449 Venipuncture Draw Fee 09:30:26 INSERTER CPT-TCMM Transitional Care Mgmt-Moderate 10:25:31 CDT CPT-97069 Bladder Scan 14:34:53 CDT CPT-71148 Bladder Scan 14:39:01 INSERTER CPT-TCMM Transitional Care Mgmt-Moderate 10:30:19 INSERTER CPT-34607 Bladder Scan 12:36:44 CDT CPT-92471 Bladder Scan 21:54:06 CDT CPT-G0008 Administration of Influenza Virus Vaccine 13:05:26 CDT CPT-09522 Fluzone Quadrivalent Intramuscular Suspension 0.5 ML 13: 05:26 CDT CPT-50302 Administration single or combination vaccine inc oral 11 :49:51 CDT CPT-13672 Pneumovax 11:49:51 CDT CPT-62509 Ribs unilateral 2V 12:37:22 INSERTER CPT-82291 Chest 2V Frontal and Lat 17:15:26 CDT CPT-74842 Abx/Therapy Injection 18:54:02 CDT CPT-J0696 Rocephin 1000 mg (Ceftriaxone) 16:00:32 CDT CPT-92493 Chest 2V Frontal and Lat 15:26:45 CDT CPT-11206 Chest 2V Frontal and Lat 10:23:27 CDT CPT-80164 Venipuncture Draw Fee 10:11:00 CDT CPT-78951 Administration single or combination vaccine inc oral 11 :56:38 CDT CPT-64835 Influenza split virus > age 3 11:56:38 CDT CPT-26724 Venipuncture Draw Fee 08:49:54 INSERTER CPT-76275 EKG Trac and Interp 17:54:19 INSERTER
--- OUTSIDE RECORDS SUMMARY | 2018-07-02 12:37 | XMS REPORT | Clinical Summary ---
Author Author Admin, TERELL Organization 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.44 Inactive Alina Castaenda MD PhD Hypoglycemia ICD-251.2 Inactive Alina Castaneda [...] ORAL TABLET 1 tab daily QUETIAPINE FUMARATE 59875242734 No Longer Active Shavonne Feliciano PA-C Active SEROQUEL 25 MG ORAL TABLET Take two tabs by mouth in the morning, take 4 tablets at night QUETIAPINE FUMARATE 08120074320 Active Shavonne Feliciano PA-C Active [facility] MELATONIN 3 MG ORAL TABLET give 1 tab by mouth at HS MELATONIN 08210813097 No Longer Active Gabrielleadrienne Marquez MA Active NOVOLOG FLEXPEN 100 UNIT/ML SUBCUTANEOUS SOLUTION PEN-INJECTOR sliding scale INSULIN ASPART 05256560245 Active Gabrielle Littleananda NOEL Active METFORMIN HCL 1000 MG ORAL TABLET 1 tab by mouth BID METFORMIN HCL 82192695198 Active Gabrielle Littleananda NOEL Active [facility] MELATONIN 3 MG ORAL TABLET 1 tab nightly MELATONIN 94332478657 Active Gabrielle Littleananda BERT Active TAMSULOSIN HCL 0.4 MG ORAL CAPSULE give 2 capsules PO each evening TAMSULOSIN HCL 74476144159 No Longer Active Gabrielle Littleananda BERT Active VITAMIN D 2000 UNIT ORAL CAPSULE Take one by mouth daily CHOLECALCIFEROL 57691679903 No Longer Active Gabrielle Littleananda BERT Active LATUDA 40 MG ORAL TABLET 1.5 tab by mouth in the afternoon LURASIDONE HCL 92715957133 Active Gabrielle Littleananda BERT Active LEVEMIR 100 UNIT/ML SUBCUTANEOUS SOLUTION 10 u at bedtime INSULIN DETEMIR 29826998769 Active Gabrielle Littleananda BERT Active TAMSULOSIN HCL 0.4 MG ORAL CAPSULE 2 every night for urine flow TAMSULOSIN HCL 70124633473 Active Gabrielle Marquez MA Active DIVALPROEX SODIUM 125 MG ORAL TABLET DELAYED RELEASE 1 tab each morning 02/17 DIVALPROEX SODIUM 39686243575 Active Gabrielle Marquez MA Active D 1000 TABLET 2 tab by mouth BID CHOLECALCIFEROL TABS 08844679225 Active Gabrielle Marquez MA Active ALIGN 4 MG ORAL CAPSULE 1 tab at hs PROBIOTIC PRODUCT 19982021560 Active Gabrielle Marquez MA Active CLONAZEPAM 1 MG ORAL TABLET 1 pill by mouth two times daily CLONAZEPAM 95384466175 Active Gabrielle Marquez MA Active FENOFIBRATE 160 MG ORAL TABLET Take 1 tablet by mouth daily FENOFIBRATE 63077578595 Active Mya Ledezma MA Active OCEAN NASAL SPRAY SOLUTION 2 sprays in both nostrils every 8 hours as needed for dry mucous membranes SALINE SOLN 05713730214 Active Mason Loredo MD Active BETHANECHOL CHLORIDE 25 MG ORAL TABLET Take 1 tablet mouth four times a day BETHANECHOL CHLORIDE 37320887939 Active Mason Loredo MD Active [facility] LUBRICANT EYE DROPS 0.4-0.3 % OPHTHALMIC SOLUTION POLYETHYL GLYCOL-PROPYL GLYCOL 41352560734 No Longer Active Mason Loredo MD Active TYLENOL 8 HOUR 650 MG ORAL TABLET EXTENDED RELEASE 1 tab QID prn ACETAMINOPHEN 21674546717 No Longer Active Mason Loredo MD Active TOPAMAX 25 MG ORAL TABLET 1 tab BID PRN TOPIRAMATE 20779507693 Active Mason Loredo MD Active TIMOPTIC OCUDOSE 0.5 % OPHTHALMIC SOLUTION instill one drop into both eyes q12H TIMOLOL MALEATE 24392231785 Active Mason Loredo MD Active TRAZODONE HCL 100 MG ORAL TABLET 1 every night to prevent headaches TRAZODONE HCL 22624309781 No Longer Active Mason Loredo MD Active TRAVATAN Z 0.004 % OPHTHALMIC SOLUTION 1 drop each eye daily 2017 TRAVOPROST 05839351710 No Longer Active Mason Loredo MD Active LATUDA 60 MG ORAL TABLET 1 tab daily LURASIDONE HCL 95908648217 No Longer Active Mason Loredo MD Active MORPHINE SULFATE ER 30 MG ORAL TABLET EXTENDED RELEASE Take one capsule BID MORPHINE SULFATE 42874915727 No Longer Active Mason Loredo MD Active TRUE METRIX BLOOD GLUCOSE TEST IN VITRO STRIP Check blood sugars 3x/day. 2015 GLUCOSE BLOOD 27886591017 No Longer Active Mason Loredo MD Active TRUEPLUS LANCETS 30G 3x a day LANCETS 59884323272 No Longer Active Mason Loredo MD Active MYLANTA GAS RELIEF MAXIMUM STR 125 MG ORAL CAPSULE 30cc every 4 hours prn SIMETHICONE 58625355228 No Longer Active Mason Loredo MD Active IMODIUM A-D 2 MG ORAL TABLET 1 tab QID as needed LOPERAMIDE HCL 13069204660 No Longer Active Mason Loredo MD Active FLONASE ALLERGY RELIEF 50 MCG/ACT NASAL SUSPENSION One spray each nostril BID x 1 week then daily FLUTICASONE PROPIONATE 45376875353 No Longer Active Mason Loredo MD Active FLUVOXAMINE MALEATE 100 MG ORAL TABLET take one tab every AM et HS, and take 1 /2 tab at noon FLUVOXAMINE MALEATE 17201385763 No Longer Active Mason Loredo MD Active BD PEN NEEDLE MINI U/F 31G X 5 MM 4 a day INSULIN PEN NEEDLE 27714144607 No Longer Active Mason Loredo MD Active AMITIZA 24 MCG ORAL CAPSULE Take one capsule BID for constipation LUBIPROSTONE 79824262124 No Longer Active Mason Loredo MD Active TRUEPLUS LANCETS 30G 3 a day LANCETS 12390964530 No Longer Active Mason Loredo MD Active CORICIDIN HBP CONGESTION/COUGH 10-200 MG ORAL CAPSULE Take as directed on box as needed for cold/flu symptoms DEXTROMETHORPHAN- GUAIFENESIN 65200680368 No Longer Active Mason Loredo MD Active OMEGA-3 300 MG ORAL CAPSULE 4 caps by mouth daily OMEGA-3 FATTY ACIDS 38253131546 No Longer Active Mason Loredo MD Active HUMALOG KWIKPEN 100 UNIT/ML SUBCUTANEOUS SOLUTION PEN-INJECTOR sliding scale if needed INSULIN LISPRO (HUMAN) 96868726278 No Longer Active Mason Loredo MD Active TRUETEST TEST IN VITRO STRIP check blood sugars 3x/day GLUCOSE BLOOD 59862336706 No Longer Active Mason Loredo MD Active ALFUZOSIN HCL ER 10 MG ORAL TABLET EXTENDED RELEASE 24 HOUR 1 tablet daily ALFUZOSIN HCL 80904046550 No Longer Active Mason Loredo MD Active BD INSULIN SYRINGE 28G X 1/2" 1 ML 1 four times per day INSULIN SYRINGE-NEEDLE U-100 07067930304 No Longer Active Mason Loredo MD Active LEVEMIR FLEXTOUCH 100 UNIT/ML SUBCUTANEOUS SOLUTION PEN-INJECTOR 60 units SQ each evening, for diabetes INSULIN DETEMIR 60718956410 No Longer Active Mason Loredo MD Active LACTULOSE 20 GM/30ML ORAL SOLUTION give 30 Ml PO BID PRN LACTULOSE 79027203401 Active Mason Loredo MD Active COLACE 100 MG ORAL CAPSULE 1 tab BID PRN DOCUSATE SODIUM 60394442316 Active Mason Loredo MD Active LATANOPROST 0.005 % OPHTHALMIC SOLUTION instill 1 drop in both eyes at bed time LATANOPROST 25439135744 Active Mason Loredo MD Active AMARYL 2 MG ORAL TABLET give 2.5 tabs PO daily GLIMEPIRIDE 97384558423 Active Mason Loredo MD Active MIRALAX ORAL POWDER 17g by mouth q12h, for constipation POLYETHYLENE GLYCOL 3350 21126291870 Active Mason Loredo MD Active IBUPROFEN 400 MG ORAL TABLET 1 tab Q6H PRN IBUPROFEN 62477145001 Active Mason Loredo MD Active EFFEXOR XR 37.5 MG ORAL CAPSULE EXTENDED RELEASE 24 HOUR Take one by mouth daily VENLAFAXINE HCL 27563752067 Active Mima Erazo APRN Active FLUVOXAMINE MALEATE 50 MG ORAL TABLET 1 tab by mouth daily 04/01 FLUVOXAMINE MALEATE 43867642024 No Longer Active Mima Erazo APRN Active TRUE METRIX METER w/Device KIT Check blood sugars 3x/day BLOOD GLUCOSE MONITORING SUPPL 13537832793 Active Marvel Charles [employer]IAN Active LATUDA 60 MG ORAL TABLET Take one by mouth daily LURASIDONE HCL 13107238447 No Longer Active Mima Erazo APRN Active [facility] MILK OF MAGNESIA 400 MG/5ML ORAL SUSPENSION 30ml by mouth bid prn MAGNESIUM HYDROXIDE 15231683061 Active Mason Loredo MD Active TRAVATAN Z 0.004 % OPHTHALMIC SOLUTION 1 gtt each eye daily TRAVOPROST 59481844268 No Longer Active Mason Loredo MD Active LISINOPRIL 20 MG ORAL TABLET 1 BID LISINOPRIL 36163892156 No Longer Active Mason Loredo MD Active ZOLPIDEM TARTRATE 10 MG ORAL TABLET take at bedtime ZOLPIDEM TARTRATE 85235643862 No Longer Active Mason Loredo MD Active HYDROCODONE-ACETAMINOPHEN 5-325 MG ORAL TABLET 2 tabs by mouth three times daily for pain HYDROCODONE-ACETAMINOPHEN 01183510413 No Longer Active Mason Loredo MD Active ZOFRAN 4 MG ORAL TABLET 1 po q4hr PRN Nausea ONDANSETRON HCL 04595753874 No Longer Active Mason Loredo MD Active LOMOTIL 2.5-0.025 MG ORAL TABLET take 1-2 tabs PO after each stool, no more than 8 in 24 hours DIPHENOXYLATE-ATROPINE 27735169765 No Longer Active Mason Loredo MD Active COLACE 100 MG ORAL CAPSULE 1 pill by mouth twice daily, for constipation 2014 DOCUSATE SODIUM 69790797885 No Longer Active Mima Erazo APRN Active TOLTERODINE TARTRATE 2 MG ORAL TABLET 1 pill twice daily, for bladder TOLTERODINE TARTRATE 75973955197 No Longer Active Vanessa Hickey MD Active AMITIZA 24 MCG ORAL CAPSULE Take one capsule BID for constipation. LUBIPROSTONE 28281061493 No Longer Active Vanessa Hickey MD Active METOPROLOL SUCCINATE ER 100 MG ORAL TABLET EXTENDED RELEASE 24 HOUR 1 by mouth daily for blood pressure METOPROLOL SUCCINATE 08868203510 No Longer Active Grace Nascimento RMA Active METFORMIN HCL ER 500 MG ORAL TABLET EXTENDED RELEASE 24 HOUR Take three tablets by mouth everyday METFORMIN HCL 44612865002 No Longer Active Grace Nelsonb RMA Active LOVAZA 1 GM ORAL CAPSULE 4 daily (for triglycerides) [id number] ETHYL ESTERS 93850229491 No Longer Active Grace Azam RMA Active TRAZODONE HCL 100 MG ORAL TABLET 1 tab by mouth for sleep TRAZODONE HCL 81899104043 No Longer Active Grace Azam RMA Active NOVOFINE 32G X 6 MM use one four times per day INSULIN PEN NEEDLE 02036651207 No Longer Active Grace Azam RMA Active BACTROBAN 2 % EXTERNAL CREAM Apply to affected area BID for up to 10 days MUPIROCIN CALCIUM 84421973811 No Longer Active Grace Azam RMA Active KEFLEX 500 MG ORAL CAPSULE 1 po BID x 7 days CEPHALEXIN 49233207929 No Longer Active Cherelle Avila APRN Active FLUVOXAMINE MALEATE 100 MG ORAL TABLET Take one (1) tablet by mouth am, 1/2 at noon FLUVOXAMINE MALEATE 10016162737 No Longer Active Mima Erazo APRN Active FLUVOXAMINE MALEATE 100 MG ORAL TABLET Take 1/2 tab at noon 03/04 FLUVOXAMINE MALEATE 96254841990 No Longer Active Cherelle Avila APRN Active ACCU-CHEK ROSA DEVICE Use device to check blood sugars BLOOD GLUCOSE MONITORING SUPPL 81408892677 No Longer Active Marvel Araceli MARROQUIN Active ACCU-CHEK ROSA IN VITRO STRIP use strips with device to check blood sugars 3 times daily GLUCOSE BLOOD 44209594251 No Longer Active Marvel Mackenzieajayari [employer]RARIAN Active VERAPAMIL HCL ER 180 MG ORAL TABLET EXTENDED RELEASE 1 pill by mouth twice daily, for migraine prevention VERAPAMIL HCL 05058735358 Active Mima Erazo APRN Active CYCLOBENZAPRINE HCL 10 MG ORAL TABLET 1 tablet by mouth three times daily, scheduled CYCLOBENZAPRINE HCL 04105145922 No Longer Active Alina Castaneda MD PhD Active HUMALOG 100 UNIT/ML SUBCUTANEOUS SOLUTION Take 20 units with breakfast, 10u with lunch and suppetr. INSULIN LISPRO (HUMAN) 02804304479 No Longer Active Alina Castaneda MD PhD Active TRUETEST TEST IN VITRO STRIP check sugars 4x/day GLUCOSE BLOOD 31163313671 No Longer Active Alina Castaneda MD PhD Active MORPHINE SULFATE 30 MG ORAL TABLET 1 pill by mouth twice daily, for pain 2013 MORPHINE SULFATE 08891698755 No Longer Active Mason Loredo MD Active ACYCLOVIR 400 MG ORAL TABLET 1 pill three times daily x 5 days, for cold sore outbreak ACYCLOVIR 11111682605 No Longer Active Alina Castaneda MD PhD Active PENICILLIN V POTASSIUM 500 MG ORAL TABLET 1 pill by mouth three times daily PENICILLIN V POTASSIUM 33294473012 No Longer Active Alina Castaneda MD PhD Active UROXATRAL 10 MG ORAL TABLET EXTENDED RELEASE 24 HOUR Take 1 tablet by mouth daily ALFUZOSIN HCL 88003487627 No Longer Active Alina Castaneda MD PhD Active THIOTHIXENE 5 MG ORAL CAPSULE by mouth twice a day THIOTHIXENE 80353699315 No Longer Active Alina Castaneda MD PhD Active ZYPREXA 7.5 MG ORAL TABLET 1 at HS OLANZAPINE 33111046711 No Longer Active Alina Castaneda MD PhD Active DETROL LA 4 MG ORAL CAPSULE EXTENDED RELEASE 24 HOUR Take 1 tablet by mouth daily TOLTERODINE TARTRATE 05906988796 No Longer Active Alina Castaneda MD PhD Active TERESE CONTOUR TEST IN VITRO STRIP monitor blood sugars 3x/day GLUCOSE BLOOD 34150243356 No Longer Active Alina Castaneda MD PhD Active EQL TRUETEST TEST IN VITRO STRIP Test blood sugar TID GLUCOSE BLOOD 95146817276 No Longer Active Alina Castaneda MD PhD Active FLUTICASONE PROPIONATE 50 MCG/ACT NASAL SUSPENSION 2 sprays each nostril qDay x 30 days FLUTICASONE PROPIONATE 78844679432 No Longer Active Alina Castaneda MD PhD Active IBUPROFEN 200 MG ORAL TABLET 1 Q 6 hr. PRN IBUPROFEN 28914669241 No Longer Active Alina Castaneda MD PhD Active NIACIN ER 500 MG ORAL TABLET EXTENDED RELEASE 4 qHS (for triglycerides) 01/13 NIACIN 66695439911 No Longer Active Alina Castaneda MD PhD Active SAPHRIS 5 MG SUBLINGUAL TABLET SUBLINGUAL by mouth twice a day ASENAPINE MALEATE 78193204088 No Longer Active Maljohn MARROQUIN Active ACETAMINOPHEN 500 MG ORAL TABLET 2 Q 6 hr. PRN ACETAMINOPHEN 89408214691 No Longer Active Malihnivia Ziglari [employer] LIBRARIAN Active ORPHENADRINE CITRATE ER 100 MG ORAL TABLET EXTENDED RELEASE 12 HOUR 1 every 12 hr. as needed ORPHENADRINE CITRATE 63588008191 No Longer Active Alina Castaneda MD PhD Active NIACIN ER 500 MG ORAL TABLET EXTENDED RELEASE 2 qHS NIACIN 13348542875 No Longer Active Alina Castaneda MD PhD Active AMOXICILLIN 500 MG ORAL CAPSULE 2 po BID x 10 days AMOXICILLIN 72510351320 No Longer Active Alina Castaneda MD PhD Active HYDROCODONE-ACETAMINOPHEN 7.5-325 MG ORAL TABLET 1 four times a day as needed for pain HYDROCODONE-ACETAMINOPHEN 72099728203 No Longer Active Alina Castaneda MD PhD Active DOXEPIN HCL 10 MG ORAL CAPSULE Take 1 tablet by mouth daily DOXEPIN HCL 93227671885 No Longer Active Salina Han A Active NAVANE 10 MG CAPS 1/2 tablet twice a day THIOTHIXENE No Longer Active Salina ROBBINSA Active CYCLOBENZAPRINE HCL 10 MG ORAL TABLET 1/2 tablet by mouth every 8 hours as needed for muscle spasms CYCLOBENZAPRINE HCL 88965082269 No Longer Active Alina Castaneda MD PhD Active BACTROBAN 2 % EXTERNAL CREAM apply to ear and nose twice daily MUPIROCIN CALCIUM 18251825590 No Longer Active Alina Castaneda MD PhD Active HYDROCODONE-ACETAMINOPHEN 5-325 MG ORAL TABLET take one tablet by mouth every four hours as needed for pain HYDROCODONE-ACETAMINOPHEN 39408978067 No Longer Active Alina Castaneda MD PhD Active ZYPREXA 5 MG ORAL TABLET take one tablet by mouth every evening OLANZAPINE 00443122673 No Longer Active Alina Castaneda MD PhD Active ALBUTEROL SULFATE (2.5 MG/3ML) 0.083% INHALATION NEBULIZATION SOLUTION one vial per nebulizer TID and PRN cough/soa ALBUTEROL SULFATE 16074344339 No Longer Active Alina Castaneda MD PhD Active GUAIFENESIN ER 600 MG ORAL TABLET EXTENDED RELEASE 12 HOUR 1 tablet by mouth twice daily if needed for cough GUAIFENESIN 19395875273 No Longer Active Marvel MARROQUIN Active AZITHROMYCIN 500 MG INTRAVENOUS SOLUTION RECONSTITUTED 1 po q day AZITHROMYCIN 47421209984 No Longer Active Alina Castaneda MD PhD Active PROMETHAZINE-CODEINE 6.25-10 MG/5ML ORAL SYRUP 1 tsp po q 6 hours prn cough PROMETHAZINE-CODEINE 39753069179 No Longer Active Alina Castaneda MD PhD Active CEFDINIR 300 MG ORAL CAPSULE by mouth twice a day CEFDINIR 79877581536 No Longer Active Alina Castaneda MD PhD Active METFORMIN HCL ER 500 MG ORAL TABLET EXTENDED RELEASE 24 HOUR Take 3 tablets by mouth everyday METFORMIN HCL 57649189055 No Longer Active Alina Castaneda MD PhD Active LEVEMIR 100 UNIT/ML SUBCUTANEOUS SOLUTION 90 units SQ qHS INSULIN DETEMIR 08488262090 No Longer Active Marvel MARROQUIN Active TOPROL XL 100 MG ORAL TABLET EXTENDED RELEASE 24 HOUR 1 @ HS METOPROLOL SUCCINATE 26406365889 No Longer Active Marvel MARROQUIN Active ALLOPURINOL 300 MG ORAL TABLET Take one by mouth daily ALLOPURINOL 35011016652 Active Mima Erazo REFERENCE ARCHIVIST Active ZYPREXA 10 MG ORAL TABLET Take one by mouth daily OLANZAPINE 58257189645 No Longer Active Alina Castaneda MD PhD Active NOVOLOG 100 UNIT/ML SUBCUTANEOUS SOLUTION 40 units with every meal INSULIN ASPART 90986344911 No Longer Active Alina Castaneda MD PhD Active VERAPAMIL HCL ER 120 MG ORAL TABLET EXTENDED RELEASE 1 qPM 09/08 VERAPAMIL HCL 73331726678 No Longer Active Salina ROJAS Active ZYPREXA 15 MG ORAL TABLET Take 1 tablet by mouth daily OLANZAPINE 60314943464 No Longer Active Marvel MARROQUIN Active ALBUTEROL SULFATE (2.5 MG/3ML) 0.083% INHALATION NEBULIZATION SOLUTION 1 neb tid and prn cough ALBUTEROL SULFATE 10621754638 No Longer Active Alina Castaneda MD PhD Active LANTUS 100 UNIT/ML SUBCUTANEOUS SOLUTION 60 units sq q hs INSULIN GLARGINE 48766973490 No Longer Active CRYSTAL Suarez Active ALBUTEROL SULFATE (2.5 MG/3ML) 0.083% INHALATION NEBULIZATION SOLUTION 1 neb tid and prn cough ALBUTEROL SULFATE (2.5 MG/3ML) 0.083% INHALATION NEBULIZATION SOLUTION 777680 ALBUTEROL SULFATE Inactive ZYPREXA 15 MG ORAL TABLET Take 1 tablet by mouth daily ZYPREXA 15 MG ORAL TABLET 414386 OLANZAPINE Inactive VERAPAMIL HCL ER 120 MG ORAL TABLET EXTENDED RELEASE 1 qPM 09/08 VERAPAMIL HCL ER 120 MG ORAL TABLET EXTENDED RELEASE VERAPAMIL HCL Inactive ZYPREXA 10 MG ORAL TABLET Take one by mouth daily ZYPREXA 10 MG ORAL TABLET 541110 OLANZAPINE Inactive TOPROL XL 100 MG ORAL TABLET EXTENDED RELEASE 24 HOUR 1 @ HS TOPROL XL 100 MG ORAL TABLET EXTENDED RELEASE 24 HOUR METOPROLOL SUCCINATE Inactive LEVEMIR 100 UNIT/ML SUBCUTANEOUS SOLUTION 90 units SQ qHS LEVEMIR 100 UNIT/ML SUBCUTANEOUS SOLUTION INSULIN DETEMIR Inactive PROMETHAZINE-CODEINE 6.25-10 MG/5ML ORAL SYRUP 1 tsp po q 6 hours prn cough PROMETHAZINE-CODEINE 6.25-10 MG/5ML ORAL SYRUP 593666 PROMETHAZINE-CODEINE Inactive GUAIFENESIN ER 600 MG ORAL TABLET EXTENDED RELEASE 12 HOUR 1 tablet by mouth twice daily if needed for cough GUAIFENESIN ER 600 MG ORAL TABLET EXTENDED RELEASE 12 HOUR GUAIFENESIN Inactive ALBUTEROL SULFATE (2.5 MG/3ML) 0.083% INHALATION NEBULIZATION SOLUTION one vial per nebulizer TID and PRN cough/soa ALBUTEROL SULFATE (2.5 MG/3ML) 0.083% INHALATION NEBULIZATION SOLUTION 921579 ALBUTEROL SULFATE Inactive ZYPREXA 5 MG ORAL TABLET take one tablet by mouth every evening ZYPREXA 5 MG ORAL TABLET 625222 OLANZAPINE Inactive HYDROCODONE-ACETAMINOPHEN 5-325 MG ORAL TABLET take one tablet by mouth every four hours as needed for pain HYDROCODONE-ACETAMINOPHEN 5-325 MG ORAL TABLET 840991 HYDROCODONE-ACETAMINOPHEN Inactive BACTROBAN 2 % EXTERNAL CREAM apply to ear and nose twice daily BACTROBAN 2 % EXTERNAL CREAM 621464 MUPIROCIN CALCIUM Inactive CYCLOBENZAPRINE HCL 10 MG ORAL TABLET 1/2 tablet by mouth every 8 hours as needed for muscle spasms CYCLOBENZAPRINE HCL 10 MG ORAL TABLET 005525 CYCLOBENZAPRINE HCL Inactive NAVANE 10 MG CAPS 1/2 tablet twice a day NAVANE 10 MG CAPS THIOTHIXENE Inactive DOXEPIN HCL 10 MG ORAL CAPSULE Take 1 tablet by mouth daily DOXEPIN HCL 10 MG ORAL CAPSULE 8832687 DOXEPIN HCL Inactive HYDROCODONE-ACETAMINOPHEN 7.5-325 MG ORAL TABLET 1 four times a day as needed for pain HYDROCODONE-ACETAMINOPHEN 7.5-325 MG ORAL TABLET 616460 HYDROCODONE-ACETAMINOPHEN Inactive NIACIN ER 500 MG ORAL [...] hr. PRN ACETAMINOPHEN 500 MG ORAL TABLET 979969 ACETAMINOPHEN Inactive SAPHRIS 5 MG SUBLINGUAL TABLET SUBLINGUAL by mouth twice a day SAPHRIS 5 MG SUBLINGUAL TABLET SUBLINGUAL ASENAPINE MALEATE Inactive NIACIN ER 500 MG ORAL TABLET EXTENDED RELEASE 4 qHS (for triglycerides) 01/13 NIACIN ER 500 MG ORAL TABLET EXTENDED RELEASE NIACIN Inactive IBUPROFEN 200 MG ORAL TABLET 1 Q 6 hr. PRN IBUPROFEN 200 MG ORAL TABLET 944664 IBUPROFEN Inactive FLUTICASONE PROPIONATE 50 MCG/ACT NASAL SUSPENSION 2 sprays each nostril qDay x 30 days FLUTICASONE PROPIONATE 50 MCG/ACT NASAL SUSPENSION 9904132 FLUTICASONE PROPIONATE Inactive EQL TRUETEST TEST IN [...] at HS ZYPREXA 7.5 MG ORAL TABLET 570636 OLANZAPINE Inactive THIOTHIXENE 5 MG ORAL CAPSULE by mouth twice a day THIOTHIXENE 5 MG ORAL CAPSULE 251800 THIOTHIXENE Inactive UROXATRAL 10 MG ORAL TABLET EXTENDED RELEASE 24 HOUR Take 1 tablet by mouth daily UROXATRAL 10 MG ORAL TABLET EXTENDED RELEASE 24 HOUR ALFUZOSIN HCL Inactive ACYCLOVIR 400 MG ORAL TABLET 1 pill three times daily x 5 days, for cold sore outbreak ACYCLOVIR 400 MG ORAL TABLET 313039 ACYCLOVIR Inactive TRUETEST TEST IN VITRO STRIP check sugars 4x/day TRUETEST TEST IN VITRO STRIP GLUCOSE BLOOD Inactive HUMALOG 100 UNIT/ML SUBCUTANEOUS SOLUTION Take 20 units with breakfast, 10u with lunch and suppetr. HUMALOG 100 UNIT/ML SUBCUTANEOUS SOLUTION INSULIN LISPRO (HUMAN) Inactive CYCLOBENZAPRINE HCL 10 MG ORAL TABLET 1 tablet by mouth three times daily, scheduled CYCLOBENZAPRINE HCL 10 MG ORAL TABLET 273236 CYCLOBENZAPRINE HCL Inactive ACCU-CHEK ROSA IN VITRO STRIP use strips with device to check blood sugars 3 times daily ACCU-CHEK ROSA IN VITRO STRIP GLUCOSE BLOOD Inactive ACCU-CHEK ROSA DEVICE Use device to check blood sugars ACCU-CHEK ROSA DEVICE BLOOD GLUCOSE MONITORING SUPPL Inactive FLUVOXAMINE MALEATE 100 MG ORAL TABLET Take 1/2 tab at noon 03/04 FLUVOXAMINE MALEATE 100 MG ORAL TABLET 925417 FLUVOXAMINE MALEATE Inactive FLUVOXAMINE MALEATE 100 MG ORAL TABLET Take one (1) tablet by mouth am, 1/2 at noon FLUVOXAMINE MALEATE 100 MG ORAL TABLET 449983 FLUVOXAMINE MALEATE Inactive BACTROBAN 2 % EXTERNAL CREAM Apply to affected area BID for up to 10 days BACTROBAN 2 % EXTERNAL CREAM 470877 MUPIROCIN CALCIUM Inactive NOVOFINE 32G X 6 MM use one four times per day NOVOFINE 32G X 6 MM INSULIN PEN NEEDLE Inactive TRAZODONE HCL 100 MG ORAL TABLET 1 tab by mouth for sleep TRAZODONE HCL 100 MG ORAL TABLET 802649 TRAZODONE HCL Inactive LOVAZA 1 GM ORAL CAPSULE 4 daily (for triglycerides) LOVAZA 1 GM ORAL CAPSULE 950512 [id number] ETHYL ESTERS Inactive METFORMIN HCL ER 500 [...] bladder TOLTERODINE TARTRATE 2 MG ORAL TABLET 133759 TOLTERODINE TARTRATE Inactive COLACE 100 MG ORAL CAPSULE 1 pill by mouth twice daily, for constipation 2014 COLACE 100 MG ORAL CAPSULE 8364357 DOCUSATE SODIUM Inactive LOMOTIL 2.5-0.025 MG ORAL TABLET take 1-2 tabs PO after each stool, no more than 8 in 24 hours LOMOTIL 2.5-0.025 MG ORAL TABLET 0137377 DIPHENOXYLATE-ATROPINE Inactive ZOFRAN 4 MG ORAL TABLET 1 po q4hr PRN Nausea ZOFRAN 4 MG ORAL TABLET 151819 ONDANSETRON HCL Inactive HYDROCODONE-ACETAMINOPHEN 5-325 MG ORAL TABLET 2 tabs by mouth three times daily for pain HYDROCODONE-ACETAMINOPHEN 5-325 MG ORAL TABLET 333800 HYDROCODONE-ACETAMINOPHEN Inactive ZOLPIDEM TARTRATE 10 MG ORAL TABLET take at bedtime ZOLPIDEM TARTRATE 10 MG ORAL TABLET 924210 ZOLPIDEM TARTRATE Inactive LISINOPRIL 20 MG ORAL TABLET 1 BID LISINOPRIL 20 MG ORAL TABLET 916649 LISINOPRIL Inactive TRAVATAN Z 0.004 % OPHTHALMIC SOLUTION 1 gtt each eye daily TRAVATAN Z 0.004 % OPHTHALMIC SOLUTION TRAVOPROST Inactive LATUDA 60 MG ORAL TABLET Take one by mouth daily LATUDA 60 MG ORAL TABLET LURASIDONE HCL Inactive FLUVOXAMINE MALEATE 50 MG ORAL TABLET 1 tab by mouth daily 04/01 FLUVOXAMINE MALEATE 50 MG ORAL TABLET 507522 FLUVOXAMINE MALEATE Inactive LEVEMIR FLEXTOUCH 100 UNIT/ML [...] 30G 3 a day TRUEPLUS LANCETS 30G [id number] LANCETS Inactive AMITIZA 24 MCG ORAL CAPSULE [...] noon FLUVOXAMINE MALEATE 100 MG ORAL TABLET 963986 FLUVOXAMINE MALEATE Inactive FLONASE ALLERGY RELIEF 50 MCG/ACT NASAL SUSPENSION One spray each nostril BID x 1 week then daily FLONASE ALLERGY RELIEF 50 MCG/ACT NASAL SUSPENSION 2894051 FLUTICASONE PROPIONATE Inactive IMODIUM A-D 2 MG ORAL TABLET 1 tab QID as needed IMODIUM A-D 2 MG ORAL TABLET 747983 LOPERAMIDE HCL Inactive MYLANTA GAS RELIEF MAXIMUM STR 125 MG ORAL CAPSULE 30cc every 4 hours prn MYLANTA GAS RELIEF MAXIMUM STR 125 MG ORAL CAPSULE SIMETHICONE Inactive TRUEPLUS LANCETS 30G 3x a day TRUEPLUS LANCETS 30G [id number] LANCETS Inactive TRUE METRIX BLOOD GLUCOSE TEST [...] headaches TRAZODONE HCL 100 MG ORAL TABLET 745182 TRAZODONE HCL Inactive TYLENOL 8 HOUR 650 [...] evening TAMSULOSIN HCL 0.4 MG ORAL CAPSULE 000280 TAMSULOSIN HCL Inactive [facility] MELATONIN 3 MG ORAL TABLET give 1 tab by mouth at HS [facility] MELATONIN 3 MG ORAL TABLET 471161 MELATONIN Inactive SEROQUEL 100 MG ORAL TABLET 1 tab daily SEROQUEL 100 MG ORAL TABLET 563427 QUETIAPINE FUMARATE Inactive CEFDINIR 300 MG ORAL CAPSULE by mouth twice a day CEFDINIR 300 MG ORAL CAPSULE 542938 CEFDINIR Inactive AZITHROMYCIN 500 MG INTRAVENOUS SOLUTION RECONSTITUTED 1 po q day AZITHROMYCIN 500 MG INTRAVENOUS SOLUTION RECONSTITUTED [id number] AZITHROMYCIN Inactive AMOXICILLIN 500 MG ORAL CAPSULE 2 po BID x 10 days AMOXICILLIN 500 MG ORAL CAPSULE 084159 AMOXICILLIN Inactive PENICILLIN V POTASSIUM 500 MG ORAL TABLET 1 pill by mouth three times daily PENICILLIN V POTASSIUM 500 MG ORAL TABLET 486461 PENICILLIN V POTASSIUM Inactive KEFLEX 500 MG ORAL CAPSULE 1 po BID x 7 days KEFLEX 500 MG ORAL CAPSULE 703611 CEPHALEXIN Inactive Immunizations Vaccine Administration Date Value [...] Fluvirin, Fluarix, Agriflu(>=18 yo)) Fluzone (>3 yrs.) [ETS849] Influenza, seasonal, injectable pneumococcal immunization administered Pneumovax 23 [CVX33] pneumococcal polysaccharide vaccine, 23 valent Vital Signs Date Name Value Unit Range Description blood pressure, diastolic, repeated by physician 84 [...] ... - Chemistry sodium, serum 135 mmol/L [phone]/08/22 carbon dioxide, venous blood 28.4 mmol/L 21.0-32.0 [...] mg/g {creat} 0-29 cholesterol, serum 263 mg/dL [phone]/08/22 triglyceride, serum, fasting 1312 mg/dL 30-200 HDL [...] 80 mg/L 0-19 Office Visit: TCM from group home - Lab PSA (prostate specific antigent), recommendation and action PSA ordered Encounters Code Encounter Date Provider Facility CPT-34599 [id number] Vst-Est Level III 11:00:25 CDT Shavonne Feliciano PA-C [facility] CPT-39301 Level 3 Est. Patient 09:12:14 ARMATURE WINDER Mima Erazo [facility] [place] CPT-21008 Level 3 Est. Patient 16:52:51 CDT Vanessa Hickey MD [facility] CPT-66323 Level 3 Est. Patient 17:40:16 CDT Mima Erazo [facility] [place] CPT-69334 Level 3 Est. Patient 14:34:52 CDT Vanessa Hickey MD [facility] CPT-03400 Level 3 Est. Patient 16:27:51 CDT Mima Erazo [facility] CPT-11108 Level 3 Est. Patient 14:39:00 ARMATURE WINDER Vanessa Hickey MD [facility] CPT-13848 Level 2 Est. Patient 18:43:34 CDT Mima Erazo [facility] CPT-43955 Level 3 Est. Patient 16:22:09 CDT Cherelle Avila [facility] CPT-68937 Level 4 Est. Patient 17:55:14 CDT Mima Erazo [facility] CPT-49111 Level 2 Est. Patient 17:13:21 CDT Alina Castaneda MD [facility]-89610 Level 3 Est. Patient 14:46:15 CDT Vanessa Hickey MD [facility]-44804 Level 3 Est. Patient 09:34:56 CDT Alina Castaneda MD [facility]-45798 Level 3 Est. Patient 21:40:19 CDT Mima Erazo [facility]-02423 Level 3 Est. Patient 09:26:40 CDT Marvel [facility]-47783 Level 3 Est. Patient 12:36:43 CDT Vanessa Hickey MD [facility]-84535 Level 3 Est. Patient 12:57:49 CDT Vanessa Hickey MD [facility]-57054 Level 3 Est. Patient 00:28:25 CDT Alina Castaneda MD [facility]-97164 Level 2 Est. Patient 12:52:14 CDT Alina Castaneda MD [facility]-98450 Level 3 Est. Patient 11:51:18 ARMATURE WINDER Alina Castaneda MD [facility]-96932 Level 3 Est. Patient 10:09:22 ARMATURE WINDER Alina Castaneda MD [facility]-04378 Level 3 Est. Patient 14:36:26 ARMATURE WINDER Marvel [facility]-79274 Level 3 Est. Patient 13:34:47 ARMATURE WINDER Alina Castaneda MD [facility]-21431 Level 3 Est. Patient 19:52:08 ARMATURE WINDER Alina Castaneda MD PhD [facility]-62572 Level 3 Est. Patient 10:01:51 ARMATURE WINDER Marvel Arac[facility]-10593 Level 3 Est. Patient 21:54:06 CDT Vanessa Hickey MD [facility]-33608 Level 3 Est. Patient 08:54:46 CDT Alina Castaneda MD PhD [facility]-99657 Level 3 Est. Patient 09:32:11 CDT Marvel [facility]-11196 Level 3 Est. Patient 12:02:49 CDT Alina Castaneda MD [facility]-39557 Level 3 Est. Patient 19:17:33 CDT Alina Castaneda MD [facility]-39412 Level 3 Est. Patient 13:19:10 CDT Brooksjohn [facility]-12993 Level 3 Est. Patient 08:20:05 CDT Alina Castaneda MD [facility]-82907 Level 3 Est. Patient 15:17:18 CDT Alina Castaneda MD [facility]-83174 Level 3 Est. Patient 14:25:36 ARMATURE WINDER Marvel Araceli [facility]-88210 Level 3 Est. Patient 10:09:15 ARMATURE WINDER Marvel Araceli [facility]-57699 Level 3 Est. Patient 21:28:43 CDT Alina Castaneda MD [facility]-68522 Level 3 Est. Patient 15:20:11 CDT Marvel [facility]-94514 Level 4 Est. Patient 19:08:12 CDT Alina Castaneda MD [facility]-86039 Level 3 Est. Patient 15:06:39 CDT Marvel [facility]-89017 Level 4 Est. Patient 17:48:15 CDT Alina Castaneda MD [facility]-92925 Level 3 Est. Patient 14:53:49 CDT Alina Castaneda MD [facility]-03921 Level 3 Est. Patient 09:35:16 CDT Alina Castaneda MD [facility]-00258 Level 3 Est. Patient 12:23:22 CDT Alina Castaneda MD [facility]-88438 Level 3 Est. Patient 16:19:15 CDT Alina Castaneda MD [facility]-51112 Level 3 Est. Patient 21:39:56 ARMATURE WINDER Alina Castaneda MD [facility]-19979 Level 4 Est. Patient 14:12:56 ARMATURE WINDER Alina Castaneda MD [facility]-95094 Level 2 Est. Patient 15:34:57 ARMATURE WINDER Alina Castaneda MD [facility]-15565 Level 3 Est. Patient 12:17:04 ARMATURE WINDER Alina Castaneda MD [facility]-52185 Level 3 Est. Patient 09:18:18 ARMATURE WINDER Marvel [facility]-29213 Level 2 Est. Patient 21:50:24 CDT Alina Castaneda MD [facility]-92498 Level 3 Est. Patient 09:17:28 CDT Marvel [facility]-57638 Level 4 Est. Patient 18:54:02 CDT Alina Castaneda MD [facility] CPT-73158 Level 3 Est. Patient 10:47:10 CDT Alina Castaneda MD [facility] CPT-13154 Level 3 Est. Patient 09:22:20 CDT Marvel Thurstonestela [facility] CPT-65832 Level 3 Est. Patient 16:39:43 CDT Brooksnivia Thurstonestela [facility] CPT-16629 Level 3 Est. Patient 16:05:16 CDT Alina Castaneda MD [facility]-05742 Level 3 Est. Patient 00:29:15 CDT Alina Castaneda MD [facility]-72621 Level 3 Est. Patient 10:49:22 ARMATURE WINDER Marvel Thurstonestela [facility] CPT-52939 Level 3 Est. Patient 21:30:19 ARMATURE WINDER Alina Castaneda MD [facility] CPT-18160 Level 4 Est. Patient 17:04:11 ARMATURE WINDER Marvel Thurstonestela [facility] CPT-56702 Level 3 Est. Patient 15:34:11 [facility] Level 2 Est. Patient 12:51:58 ARMATURE WINDER Alina Castaneda MD [facility] CPT-81454 Level 3 Est. Patient 13:20:01 ARMATURE WINDER Alina Castaneda MD [facility] CPT-09190 Level 3 Est. Patient 09:23:35 CDT Alina Castaneda MD PhD [facility] Procedures Code Procedure Name Date Entry Date Standard Description CPT-TCMM Transitional Care Mgmt-Moderate 12:32:19 CDT CPT-83519 Level 2 Fpc 09:01:11 CDT CPT-90813 HGBA1C - LAB USE ONLY 09:30:27 ARMATURE WINDER CPT-50032 BMP - LAB USE ONLY 09:30:27 ARMATURE WINDER CPT-92036 Venipuncture Draw Fee 09:30:26 ARMATURE WINDER CPT-TCMM Transitional Care Mgmt-Moderate 10:25:31 CDT CPT-78591 Bladder Scan 14:34:53 CDT CPT-68374 Bladder Scan 14:39:01 ARMATURE WINDER CPT-TCMM Transitional Care Mgmt-Moderate 10:30:19 ARMATURE WINDER CPT-85932 Bladder Scan 12:36:44 CDT CPT-94526 Bladder Scan 21:54:06 CDT CPT-G0008 Administration of Influenza Virus Vaccine 13:05:26 CDT CPT-53711 Fluzone Quadrivalent Intramuscular Suspension 0.5 ML 13: 05:26 CDT CPT-24949 Administration single or combination vaccine inc oral 11 :49:51 CDT CPT-54374 Pneumovax 11:49:51 CDT CPT-90066 Ribs unilateral 2V 12:37:22 ARMATURE WINDER CPT-49691 Chest 2V Frontal and Lat 17:15:26 CDT CPT-94996 Abx/Therapy Injection 18:54:02 CDT CPT-J0696 Rocephin 1000 mg (Ceftriaxone) 16:00:32 CDT CPT-94340 Chest 2V Frontal and Lat 15:26:45 CDT CPT-73160 Chest 2V Frontal and Lat 10:23:27 CDT CPT-78534 Venipuncture Draw Fee 10:11:00 CDT CPT-47862 Administration single or combination vaccine inc oral 11 :56:38 CDT CPT-35404 Influenza split virus > age 3 11:56:38 CDT CPT-19291 Venipuncture Draw Fee 08:49:54 ARMATURE WINDER CPT-07825 EKG Trac and Interp 17:54:19 ARMATURE WINDER
--- OUTSIDE RECORDS SUMMARY | 2018-07-02 12:39 | XMS REPORT | Clinical Summary ---
Author Author Admin, TERELL Organization [facility] Address Unknown Phone Unavailable Allergies, Adverse Reactions, [...] mellitus, type II 250.00 Active Marvel Thurstonari INSPECTOR SCALES Diabetes mellitus without mention of complication, type [...] ORAL TABLET 1 tab daily QUETIAPINE FUMARATE 20979522235 No Longer Active Shavonne Feliciano PA-C Active SEROQUEL 25 MG ORAL TABLET Take two tabs by mouth in the morning, take 4 tablets at night QUETIAPINE FUMARATE 12035750935 Active Shavonne Feliciano PA-C Active [facility] MELATONIN 3 MG ORAL TABLET give 1 tab by mouth at HS MELATONIN 48921032826 No Longer Active Gabrielleadrienne Marquez MA Active NOVOLOG FLEXPEN 100 UNIT/ML SUBCUTANEOUS SOLUTION PEN-INJECTOR sliding scale INSULIN ASPART 66771808590 Active Gabrielle Littleananda NOEL Active METFORMIN HCL 1000 MG ORAL TABLET 1 tab by mouth BID METFORMIN HCL 40222872355 Active Gabrielle Littleananda NOEL Active [facility] MELATONIN 3 MG ORAL TABLET 1 tab nightly MELATONIN 35207878889 Active Gabrielle Littleananda BERT Active TAMSULOSIN HCL 0.4 MG ORAL CAPSULE give 2 capsules PO each evening TAMSULOSIN HCL 13008902541 No Longer Active Gabrielle Littleananda BERT Active VITAMIN D 2000 UNIT ORAL CAPSULE Take one by mouth daily CHOLECALCIFEROL 94040854863 No Longer Active Gabrielle Littleananda BERT Active LATUDA 40 MG ORAL TABLET 1.5 tab by mouth in the afternoon LURASIDONE HCL 29719566538 Active Gabrielle Littleananda BERT Active LEVEMIR 100 UNIT/ML SUBCUTANEOUS SOLUTION 10 u at bedtime INSULIN DETEMIR 34097984072 Active Gabrielle Littleananda BERT Active TAMSULOSIN HCL 0.4 MG ORAL CAPSULE 2 every night for urine flow TAMSULOSIN HCL 99320761715 Active Gabrielle Marquez MA Active DIVALPROEX SODIUM 125 MG ORAL TABLET DELAYED RELEASE 1 tab each morning 02/17 DIVALPROEX SODIUM 08117852473 Active Gabrielle Marquez MA Active D 1000 TABLET 2 tab by mouth BID CHOLECALCIFEROL TABS 31835145204 Active Gabrielle Marquez MA Active ALIGN 4 MG ORAL CAPSULE 1 tab at hs PROBIOTIC PRODUCT 07567078855 Active Gabrielle Marquez MA Active CLONAZEPAM 1 MG ORAL TABLET 1 pill by mouth two times daily CLONAZEPAM 69507389417 Active Gabrielle Marquez MA Active FENOFIBRATE 160 MG ORAL TABLET Take 1 tablet by mouth daily FENOFIBRATE 92403127576 Active Mya Ledezma MA Active OCEAN NASAL SPRAY SOLUTION 2 sprays in both nostrils every 8 hours as needed for dry mucous membranes SALINE SOLN 37372452834 Active Mason Loredo MD Active BETHANECHOL CHLORIDE 25 MG ORAL TABLET Take 1 tablet mouth four times a day BETHANECHOL CHLORIDE 95615630011 Active Mason Loredo MD Active [facility] LUBRICANT EYE DROPS 0.4-0.3 % OPHTHALMIC SOLUTION POLYETHYL GLYCOL-PROPYL GLYCOL 51800073357 No Longer Active Mason Loredo MD Active TYLENOL 8 HOUR 650 MG ORAL TABLET EXTENDED RELEASE 1 tab QID prn ACETAMINOPHEN 74758506698 No Longer Active Mason Loredo MD Active TOPAMAX 25 MG ORAL TABLET 1 tab BID PRN TOPIRAMATE 34132741291 Active Mason Loredo MD Active TIMOPTIC OCUDOSE 0.5 % OPHTHALMIC SOLUTION instill one drop into both eyes q12H TIMOLOL MALEATE 92009568336 Active Mason Loredo MD Active TRAZODONE HCL 100 MG ORAL TABLET 1 every night to prevent headaches TRAZODONE HCL 56041682697 No Longer Active Mason Loredo MD Active TRAVATAN Z 0.004 % OPHTHALMIC SOLUTION 1 drop each eye daily 2017 TRAVOPROST 73295725425 No Longer Active Mason Loredo MD Active LATUDA 60 MG ORAL TABLET 1 tab daily LURASIDONE HCL 85249968011 No Longer Active Mason Loredo MD Active MORPHINE SULFATE ER 30 MG ORAL TABLET EXTENDED RELEASE Take one capsule BID MORPHINE SULFATE 13892125186 No Longer Active Mason Loredo MD Active TRUE METRIX BLOOD GLUCOSE TEST IN VITRO STRIP Check blood sugars 3x/day. 2015 GLUCOSE BLOOD 59113899739 No Longer Active Mason Loredo MD Active TRUEPLUS LANCETS 30G 3x a day LANCETS 89697377193 No Longer Active Mason Loredo MD Active MYLANTA GAS RELIEF MAXIMUM STR 125 MG ORAL CAPSULE 30cc every 4 hours prn SIMETHICONE 25268265126 No Longer Active Mason Loredo MD Active IMODIUM A-D 2 MG ORAL TABLET 1 tab QID as needed LOPERAMIDE HCL 23257872057 No Longer Active Mason Loredo MD Active FLONASE ALLERGY RELIEF 50 MCG/ACT NASAL SUSPENSION One spray each nostril BID x 1 week then daily FLUTICASONE PROPIONATE 21935089992 No Longer Active Mason Loredo MD Active FLUVOXAMINE MALEATE 100 MG ORAL TABLET take one tab every AM et HS, and take 1 /2 tab at noon FLUVOXAMINE MALEATE 46290970958 No Longer Active Mason Loredo MD Active BD PEN NEEDLE MINI U/F 31G X 5 MM 4 a day INSULIN PEN NEEDLE 74777491786 No Longer Active Mason Loredo MD Active AMITIZA 24 MCG ORAL CAPSULE Take one capsule BID for constipation LUBIPROSTONE 57667311614 No Longer Active Mason Loredo MD Active TRUEPLUS LANCETS 30G 3 a day LANCETS 07181325385 No Longer Active Mason Loredo MD Active CORICIDIN HBP CONGESTION/COUGH 10-200 MG ORAL CAPSULE Take as directed on box as needed for cold/flu symptoms DEXTROMETHORPHAN- GUAIFENESIN 01644537105 No Longer Active Mason Loredo MD Active OMEGA-3 300 MG ORAL CAPSULE 4 caps by mouth daily OMEGA-3 FATTY ACIDS 69985580813 No Longer Active Mason Loredo MD Active HUMALOG KWIKPEN 100 UNIT/ML SUBCUTANEOUS SOLUTION PEN-INJECTOR sliding scale if needed INSULIN LISPRO (HUMAN) 96646994685 No Longer Active Mason Loredo MD Active TRUETEST TEST IN VITRO STRIP check blood sugars 3x/day GLUCOSE BLOOD 06369042775 No Longer Active Mason Loredo MD Active ALFUZOSIN HCL ER 10 MG ORAL TABLET EXTENDED RELEASE 24 HOUR 1 tablet daily ALFUZOSIN HCL 21466128355 No Longer Active Mason Loredo MD Active BD INSULIN SYRINGE 28G X 1/2" 1 ML 1 four times per day INSULIN SYRINGE-NEEDLE U-100 30222374289 No Longer Active Mason Loredo MD Active LEVEMIR FLEXTOUCH 100 UNIT/ML SUBCUTANEOUS SOLUTION PEN-INJECTOR 60 units SQ each evening, for diabetes INSULIN DETEMIR 79418895250 No Longer Active Mason Loredo MD Active LACTULOSE 20 GM/30ML ORAL SOLUTION give 30 Ml PO BID PRN LACTULOSE 14430821560 Active Mason Loredo MD Active COLACE 100 MG ORAL CAPSULE 1 tab BID PRN DOCUSATE SODIUM 77430527981 Active Mason Loredo MD Active LATANOPROST 0.005 % OPHTHALMIC SOLUTION instill 1 drop in both eyes at bed time LATANOPROST 84587024867 Active Mason Loredo MD Active AMARYL 2 MG ORAL TABLET give 2.5 tabs PO daily GLIMEPIRIDE 35649600399 Active Mason Loredo MD Active MIRALAX ORAL POWDER 17g by mouth q12h, for constipation POLYETHYLENE GLYCOL 3350 18716257094 Active Mason Loredo MD Active IBUPROFEN 400 MG ORAL TABLET 1 tab Q6H PRN IBUPROFEN 89833986853 Active Mason Loredo MD Active EFFEXOR XR 37.5 MG ORAL CAPSULE EXTENDED RELEASE 24 HOUR Take one by mouth daily VENLAFAXINE HCL 89497903431 Active Mima Erazo APRN Active FLUVOXAMINE MALEATE 50 MG ORAL TABLET 1 tab by mouth daily 04/01 FLUVOXAMINE MALEATE 17535914337 No Longer Active Mima Erazo APRN Active TRUE METRIX METER w/Device KIT Check blood sugars 3x/day BLOOD GLUCOSE MONITORING SUPPL 68237196979 Active Marvel Charles INSPECTOR SCALES Active LATUDA 60 MG ORAL TABLET Take one by mouth daily LURASIDONE HCL 94057537809 No Longer Active Mima Erazo APRN Active [facility] MILK OF MAGNESIA 400 MG/5ML ORAL SUSPENSION 30ml by mouth bid prn MAGNESIUM HYDROXIDE 54113010015 Active Mason Loredo MD Active TRAVATAN Z 0.004 % OPHTHALMIC SOLUTION 1 gtt each eye daily TRAVOPROST 36615622879 No Longer Active Mason Loredo MD Active LISINOPRIL 20 MG ORAL TABLET 1 BID LISINOPRIL 60946066665 No Longer Active Mason Loredo MD Active ZOLPIDEM TARTRATE 10 MG ORAL TABLET take at bedtime ZOLPIDEM TARTRATE 40325641539 No Longer Active Mason Loredo MD Active HYDROCODONE-ACETAMINOPHEN 5-325 MG ORAL TABLET 2 tabs by mouth three times daily for pain HYDROCODONE-ACETAMINOPHEN 05067040889 No Longer Active Mason Loredo MD Active ZOFRAN 4 MG ORAL TABLET 1 po q4hr PRN Nausea ONDANSETRON HCL 89995680632 No Longer Active Mason Loredo MD Active LOMOTIL 2.5-0.025 MG ORAL TABLET take 1-2 tabs PO after each stool, no more than 8 in 24 hours DIPHENOXYLATE-ATROPINE 84754351547 No Longer Active Mason Loredo MD Active COLACE 100 MG ORAL CAPSULE 1 pill by mouth twice daily, for constipation 2014 DOCUSATE SODIUM 87962641134 No Longer Active Mima Erazo APRN Active TOLTERODINE TARTRATE 2 MG ORAL TABLET 1 pill twice daily, for bladder TOLTERODINE TARTRATE 15752990055 No Longer Active Vanessa Hickey MD Active AMITIZA 24 MCG ORAL CAPSULE Take one capsule BID for constipation. LUBIPROSTONE 92750318635 No Longer Active Vanessa Hickey MD Active METOPROLOL SUCCINATE ER 100 MG ORAL TABLET EXTENDED RELEASE 24 HOUR 1 by mouth daily for blood pressure METOPROLOL SUCCINATE 00133910248 No Longer Active Grace Nascimento RMA Active METFORMIN HCL ER 500 MG ORAL TABLET EXTENDED RELEASE 24 HOUR Take three tablets by mouth everyday METFORMIN HCL 01175640469 No Longer Active Grace Nelsonb RMA Active LOVAZA 1 GM ORAL CAPSULE 4 daily (for triglycerides) [id number] ETHYL ESTERS 99151727239 No Longer Active Grace Azam RMA Active TRAZODONE HCL 100 MG ORAL TABLET 1 tab by mouth for sleep TRAZODONE HCL 16698930545 No Longer Active Grace Azam RMA Active NOVOFINE 32G X 6 MM use one four times per day INSULIN PEN NEEDLE 05169503089 No Longer Active Grace Azam RMA Active BACTROBAN 2 % EXTERNAL CREAM Apply to affected area BID for up to 10 days MUPIROCIN CALCIUM 66428890493 No Longer Active Grace Azam RMA Active KEFLEX 500 MG ORAL CAPSULE 1 po BID x 7 days CEPHALEXIN 20308033503 No Longer Active Cherelle Avila APRN Active FLUVOXAMINE MALEATE 100 MG ORAL TABLET Take one (1) tablet by mouth am, 1/2 at noon FLUVOXAMINE MALEATE 21922254301 No Longer Active Mima Erazo APRN Active FLUVOXAMINE MALEATE 100 MG ORAL TABLET Take 1/2 tab at noon 03/04 FLUVOXAMINE MALEATE 50279783535 No Longer Active Cherelle Avila APRN Active ACCU-CHEK ROSA DEVICE Use device to check blood sugars BLOOD GLUCOSE MONITORING SUPPL 35219511264 No Longer Active Marvel Araceli MARROQUIN Active ACCU-CHEK ROSA IN VITRO STRIP use strips with device to check blood sugars 3 times daily GLUCOSE BLOOD 02340158751 No Longer Active Marvel Mackenzieajayari INSPECTOR SCALES Active VERAPAMIL HCL ER 180 MG ORAL TABLET EXTENDED RELEASE 1 pill by mouth twice daily, for migraine prevention VERAPAMIL HCL 95487559503 Active Mima Erazo APRN Active CYCLOBENZAPRINE HCL 10 MG ORAL TABLET 1 tablet by mouth three times daily, scheduled CYCLOBENZAPRINE HCL 31805931950 No Longer Active Alina Castaneda MD PhD Active HUMALOG 100 UNIT/ML SUBCUTANEOUS SOLUTION Take 20 units with breakfast, 10u with lunch and suppetr. INSULIN LISPRO (HUMAN) 15590641451 No Longer Active Alina Castaneda MD PhD Active TRUETEST TEST IN VITRO STRIP check sugars 4x/day GLUCOSE BLOOD 71230038385 No Longer Active Alina Castaneda MD PhD Active MORPHINE SULFATE 30 MG ORAL TABLET 1 pill by mouth twice daily, for pain 2013 MORPHINE SULFATE 76515696313 No Longer Active Mason Loredo MD Active ACYCLOVIR 400 MG ORAL TABLET 1 pill three times daily x 5 days, for cold sore outbreak ACYCLOVIR 56977288605 No Longer Active Alina Castaneda MD PhD Active PENICILLIN V POTASSIUM 500 MG ORAL TABLET 1 pill by mouth three times daily PENICILLIN V POTASSIUM 98407147008 No Longer Active Alina Castaneda MD PhD Active UROXATRAL 10 MG ORAL TABLET EXTENDED RELEASE 24 HOUR Take 1 tablet by mouth daily ALFUZOSIN HCL 43873247303 No Longer Active Alina Castaneda MD PhD Active THIOTHIXENE 5 MG ORAL CAPSULE by mouth twice a day THIOTHIXENE 56343107700 No Longer Active Alina Castaneda MD PhD Active ZYPREXA 7.5 MG ORAL TABLET 1 at HS OLANZAPINE 28596853081 No Longer Active Alina Castaneda MD PhD Active DETROL LA 4 MG ORAL CAPSULE EXTENDED RELEASE 24 HOUR Take 1 tablet by mouth daily TOLTERODINE TARTRATE 22400310361 No Longer Active Alina Castaneda MD PhD Active TERESE CONTOUR TEST IN VITRO STRIP monitor blood sugars 3x/day GLUCOSE BLOOD 41901412828 No Longer Active Alina Castaneda MD PhD Active EQL TRUETEST TEST IN VITRO STRIP Test blood sugar TID GLUCOSE BLOOD 18136172137 No Longer Active Alina Castaneda MD PhD Active FLUTICASONE PROPIONATE 50 MCG/ACT NASAL SUSPENSION 2 sprays each nostril qDay x 30 days FLUTICASONE PROPIONATE 74973450350 No Longer Active Alina Castaneda MD PhD Active IBUPROFEN 200 MG ORAL TABLET 1 Q 6 hr. PRN IBUPROFEN 12757682861 No Longer Active Alina Castaneda MD PhD Active NIACIN ER 500 MG ORAL TABLET EXTENDED RELEASE 4 qHS (for triglycerides) 01/13 NIACIN 16436733639 No Longer Active Alina Castaneda MD PhD Active SAPHRIS 5 MG SUBLINGUAL TABLET SUBLINGUAL by mouth twice a day ASENAPINE MALEATE 33168651617 No Longer Active Maljohn MARROQUIN Active ACETAMINOPHEN 500 MG ORAL TABLET 2 Q 6 hr. PRN ACETAMINOPHEN 80144800780 No Longer Active Malihnivia Ziglari INSPECTOR SCALES Active ORPHENADRINE CITRATE ER 100 MG ORAL TABLET EXTENDED RELEASE 12 HOUR 1 every 12 hr. as needed ORPHENADRINE CITRATE 59035895974 No Longer Active Alina Castaneda MD PhD Active NIACIN ER 500 MG ORAL TABLET EXTENDED RELEASE 2 qHS NIACIN 90710334984 No Longer Active Alina Castaneda MD PhD Active AMOXICILLIN 500 MG ORAL CAPSULE 2 po BID x 10 days AMOXICILLIN 13601411433 No Longer Active Alina Castaneda MD PhD Active HYDROCODONE-ACETAMINOPHEN 7.5-325 MG ORAL TABLET 1 four times a day as needed for pain HYDROCODONE-ACETAMINOPHEN 23122572378 No Longer Active Alina Castaneda MD PhD Active DOXEPIN HCL 10 MG ORAL CAPSULE Take 1 tablet by mouth daily DOXEPIN HCL 78690504741 No Longer Active Salina Han A Active NAVANE 10 MG CAPS 1/2 tablet twice a day THIOTHIXENE No Longer Active Salina ROBBINSA Active CYCLOBENZAPRINE HCL 10 MG ORAL TABLET 1/2 tablet by mouth every 8 hours as needed for muscle spasms CYCLOBENZAPRINE HCL 75398779230 No Longer Active Alina Castaneda MD PhD Active BACTROBAN 2 % EXTERNAL CREAM apply to ear and nose twice daily MUPIROCIN CALCIUM 14410880648 No Longer Active Alina Castaneda MD PhD Active HYDROCODONE-ACETAMINOPHEN 5-325 MG ORAL TABLET take one tablet by mouth every four hours as needed for pain HYDROCODONE-ACETAMINOPHEN 66521948715 No Longer Active Alina Castaneda MD PhD Active ZYPREXA 5 MG ORAL TABLET take one tablet by mouth every evening OLANZAPINE 36242314282 No Longer Active Alina Castaneda MD PhD Active ALBUTEROL SULFATE (2.5 MG/3ML) 0.083% INHALATION NEBULIZATION SOLUTION one vial per nebulizer TID and PRN cough/soa ALBUTEROL SULFATE 98386698894 No Longer Active Alina Castaneda MD PhD Active GUAIFENESIN ER 600 MG ORAL TABLET EXTENDED RELEASE 12 HOUR 1 tablet by mouth twice daily if needed for cough GUAIFENESIN 36463692127 No Longer Active Marvel MARROQUIN Active AZITHROMYCIN 500 MG INTRAVENOUS SOLUTION RECONSTITUTED 1 po q day AZITHROMYCIN 19804227921 No Longer Active Alina Castaneda MD PhD Active PROMETHAZINE-CODEINE 6.25-10 MG/5ML ORAL SYRUP 1 tsp po q 6 hours prn cough PROMETHAZINE-CODEINE 68405523923 No Longer Active Alina Castaneda MD PhD Active CEFDINIR 300 MG ORAL CAPSULE by mouth twice a day CEFDINIR 04593042537 No Longer Active Alina Castaneda MD PhD Active METFORMIN HCL ER 500 MG ORAL TABLET EXTENDED RELEASE 24 HOUR Take 3 tablets by mouth everyday METFORMIN HCL 33402679319 No Longer Active Alina Castaneda MD PhD Active LEVEMIR 100 UNIT/ML SUBCUTANEOUS SOLUTION 90 units SQ qHS INSULIN DETEMIR 37011029510 No Longer Active Marvel MARROQUIN Active TOPROL XL 100 MG ORAL TABLET EXTENDED RELEASE 24 HOUR 1 @ HS METOPROLOL SUCCINATE 69437531234 No Longer Active Marvel MARROQUIN Active ALLOPURINOL 300 MG ORAL TABLET Take one by mouth daily ALLOPURINOL 52154624176 Active Mima Erazo ROSS LIFT OPERATOR Active ZYPREXA 10 MG ORAL TABLET Take one by mouth daily OLANZAPINE 55296248665 No Longer Active Alina Castaneda MD PhD Active NOVOLOG 100 UNIT/ML SUBCUTANEOUS SOLUTION 40 units with every meal INSULIN ASPART 01176343826 No Longer Active Alina Castaneda MD PhD Active VERAPAMIL HCL ER 120 MG ORAL TABLET EXTENDED RELEASE 1 qPM 09/08 VERAPAMIL HCL 33033327471 No Longer Active Salina ROJAS Active ZYPREXA 15 MG ORAL TABLET Take 1 tablet by mouth daily OLANZAPINE 83324607096 No Longer Active Marvel MARROQUIN Active ALBUTEROL SULFATE (2.5 MG/3ML) 0.083% INHALATION NEBULIZATION SOLUTION 1 neb tid and prn cough ALBUTEROL SULFATE 63749152318 No Longer Active Alina Castaneda MD PhD Active LANTUS 100 UNIT/ML SUBCUTANEOUS SOLUTION 60 units sq q hs INSULIN GLARGINE 69224779025 No Longer Active CRYSTAL Suarez Active ALBUTEROL SULFATE (2.5 MG/3ML) 0.083% INHALATION NEBULIZATION SOLUTION 1 neb tid and prn cough ALBUTEROL SULFATE (2.5 MG/3ML) 0.083% INHALATION NEBULIZATION SOLUTION 131785 ALBUTEROL SULFATE Inactive ZYPREXA 15 MG ORAL TABLET Take 1 tablet by mouth daily ZYPREXA 15 MG ORAL TABLET 530150 OLANZAPINE Inactive VERAPAMIL HCL ER 120 MG ORAL TABLET EXTENDED RELEASE 1 qPM 09/08 VERAPAMIL HCL ER 120 MG ORAL TABLET EXTENDED RELEASE VERAPAMIL HCL Inactive ZYPREXA 10 MG ORAL TABLET Take one by mouth daily ZYPREXA 10 MG ORAL TABLET 736073 OLANZAPINE Inactive TOPROL XL 100 MG ORAL TABLET EXTENDED RELEASE 24 HOUR 1 @ HS TOPROL XL 100 MG ORAL TABLET EXTENDED RELEASE 24 HOUR METOPROLOL SUCCINATE Inactive LEVEMIR 100 UNIT/ML SUBCUTANEOUS SOLUTION 90 units SQ qHS LEVEMIR 100 UNIT/ML SUBCUTANEOUS SOLUTION INSULIN DETEMIR Inactive PROMETHAZINE-CODEINE 6.25-10 MG/5ML ORAL SYRUP 1 tsp po q 6 hours prn cough PROMETHAZINE-CODEINE 6.25-10 MG/5ML ORAL SYRUP 154648 PROMETHAZINE-CODEINE Inactive GUAIFENESIN ER 600 MG ORAL TABLET EXTENDED RELEASE 12 HOUR 1 tablet by mouth twice daily if needed for cough GUAIFENESIN ER 600 MG ORAL TABLET EXTENDED RELEASE 12 HOUR GUAIFENESIN Inactive ALBUTEROL SULFATE (2.5 MG/3ML) 0.083% INHALATION NEBULIZATION SOLUTION one vial per nebulizer TID and PRN cough/soa ALBUTEROL SULFATE (2.5 MG/3ML) 0.083% INHALATION NEBULIZATION SOLUTION 069215 ALBUTEROL SULFATE Inactive ZYPREXA 5 MG ORAL TABLET take one tablet by mouth every evening ZYPREXA 5 MG ORAL TABLET 273370 OLANZAPINE Inactive HYDROCODONE-ACETAMINOPHEN 5-325 MG ORAL TABLET take one tablet by mouth every four hours as needed for pain HYDROCODONE-ACETAMINOPHEN 5-325 MG ORAL TABLET 447373 HYDROCODONE-ACETAMINOPHEN Inactive BACTROBAN 2 % EXTERNAL CREAM apply to ear and nose twice daily BACTROBAN 2 % EXTERNAL CREAM 281080 MUPIROCIN CALCIUM Inactive CYCLOBENZAPRINE HCL 10 MG ORAL TABLET 1/2 tablet by mouth every 8 hours as needed for muscle spasms CYCLOBENZAPRINE HCL 10 MG ORAL TABLET 162926 CYCLOBENZAPRINE HCL Inactive NAVANE 10 MG CAPS 1/2 tablet twice a day NAVANE 10 MG CAPS THIOTHIXENE Inactive DOXEPIN HCL 10 MG ORAL CAPSULE Take 1 tablet by mouth daily DOXEPIN HCL 10 MG ORAL CAPSULE 0918697 DOXEPIN HCL Inactive HYDROCODONE-ACETAMINOPHEN 7.5-325 MG ORAL TABLET 1 four times a day as needed for pain HYDROCODONE-ACETAMINOPHEN 7.5-325 MG ORAL TABLET 513550 HYDROCODONE-ACETAMINOPHEN Inactive NIACIN ER 500 MG ORAL [...] hr. PRN ACETAMINOPHEN 500 MG ORAL TABLET 021028 ACETAMINOPHEN Inactive SAPHRIS 5 MG SUBLINGUAL TABLET SUBLINGUAL by mouth twice a day SAPHRIS 5 MG SUBLINGUAL TABLET SUBLINGUAL ASENAPINE MALEATE Inactive NIACIN ER 500 MG ORAL TABLET EXTENDED RELEASE 4 qHS (for triglycerides) 01/13 NIACIN ER 500 MG ORAL TABLET EXTENDED RELEASE NIACIN Inactive IBUPROFEN 200 MG ORAL TABLET 1 Q 6 hr. PRN IBUPROFEN 200 MG ORAL TABLET 641465 IBUPROFEN Inactive FLUTICASONE PROPIONATE 50 MCG/ACT NASAL SUSPENSION 2 sprays each nostril qDay x 30 days FLUTICASONE PROPIONATE 50 MCG/ACT NASAL SUSPENSION 0007429 FLUTICASONE PROPIONATE Inactive EQL TRUETEST TEST IN [...] at HS ZYPREXA 7.5 MG ORAL TABLET 206720 OLANZAPINE Inactive THIOTHIXENE 5 MG ORAL CAPSULE by mouth twice a day THIOTHIXENE 5 MG ORAL CAPSULE 980242 THIOTHIXENE Inactive UROXATRAL 10 MG ORAL TABLET EXTENDED RELEASE 24 HOUR Take 1 tablet by mouth daily UROXATRAL 10 MG ORAL TABLET EXTENDED RELEASE 24 HOUR ALFUZOSIN HCL Inactive ACYCLOVIR 400 MG ORAL TABLET 1 pill three times daily x 5 days, for cold sore outbreak ACYCLOVIR 400 MG ORAL TABLET 984374 ACYCLOVIR Inactive TRUETEST TEST IN VITRO STRIP check sugars 4x/day TRUETEST TEST IN VITRO STRIP GLUCOSE BLOOD Inactive HUMALOG 100 UNIT/ML SUBCUTANEOUS SOLUTION Take 20 units with breakfast, 10u with lunch and suppetr. HUMALOG 100 UNIT/ML SUBCUTANEOUS SOLUTION INSULIN LISPRO (HUMAN) Inactive CYCLOBENZAPRINE HCL 10 MG ORAL TABLET 1 tablet by mouth three times daily, scheduled CYCLOBENZAPRINE HCL 10 MG ORAL TABLET 562282 CYCLOBENZAPRINE HCL Inactive ACCU-CHEK ROSA IN VITRO STRIP use strips with device to check blood sugars 3 times daily ACCU-CHEK ROSA IN VITRO STRIP GLUCOSE BLOOD Inactive ACCU-CHEK ROSA DEVICE Use device to check blood sugars ACCU-CHEK ROSA DEVICE BLOOD GLUCOSE MONITORING SUPPL Inactive FLUVOXAMINE MALEATE 100 MG ORAL TABLET Take 1/2 tab at noon 03/04 FLUVOXAMINE MALEATE 100 MG ORAL TABLET 269446 FLUVOXAMINE MALEATE Inactive FLUVOXAMINE MALEATE 100 MG ORAL TABLET Take one (1) tablet by mouth am, 1/2 at noon FLUVOXAMINE MALEATE 100 MG ORAL TABLET 099853 FLUVOXAMINE MALEATE Inactive BACTROBAN 2 % EXTERNAL CREAM Apply to affected area BID for up to 10 days BACTROBAN 2 % EXTERNAL CREAM 321397 MUPIROCIN CALCIUM Inactive NOVOFINE 32G X 6 MM use one four times per day NOVOFINE 32G X 6 MM INSULIN PEN NEEDLE Inactive TRAZODONE HCL 100 MG ORAL TABLET 1 tab by mouth for sleep TRAZODONE HCL 100 MG ORAL TABLET 677632 TRAZODONE HCL Inactive LOVAZA 1 GM ORAL CAPSULE 4 daily (for triglycerides) LOVAZA 1 GM ORAL CAPSULE 765666 [id number] ETHYL ESTERS Inactive METFORMIN HCL ER 500 [...] bladder TOLTERODINE TARTRATE 2 MG ORAL TABLET 530232 TOLTERODINE TARTRATE Inactive COLACE 100 MG ORAL CAPSULE 1 pill by mouth twice daily, for constipation 2014 COLACE 100 MG ORAL CAPSULE 6760152 DOCUSATE SODIUM Inactive LOMOTIL 2.5-0.025 MG ORAL TABLET take 1-2 tabs PO after each stool, no more than 8 in 24 hours LOMOTIL 2.5-0.025 MG ORAL TABLET 7797202 DIPHENOXYLATE-ATROPINE Inactive ZOFRAN 4 MG ORAL TABLET 1 po q4hr PRN Nausea ZOFRAN 4 MG ORAL TABLET 898835 ONDANSETRON HCL Inactive HYDROCODONE-ACETAMINOPHEN 5-325 MG ORAL TABLET 2 tabs by mouth three times daily for pain HYDROCODONE-ACETAMINOPHEN 5-325 MG ORAL TABLET 010342 HYDROCODONE-ACETAMINOPHEN Inactive ZOLPIDEM TARTRATE 10 MG ORAL TABLET take at bedtime ZOLPIDEM TARTRATE 10 MG ORAL TABLET 386279 ZOLPIDEM TARTRATE Inactive LISINOPRIL 20 MG ORAL TABLET 1 BID LISINOPRIL 20 MG ORAL TABLET 387619 LISINOPRIL Inactive TRAVATAN Z 0.004 % OPHTHALMIC SOLUTION 1 gtt each eye daily TRAVATAN Z 0.004 % OPHTHALMIC SOLUTION TRAVOPROST Inactive LATUDA 60 MG ORAL TABLET Take one by mouth daily LATUDA 60 MG ORAL TABLET LURASIDONE HCL Inactive FLUVOXAMINE MALEATE 50 MG ORAL TABLET 1 tab by mouth daily 04/01 FLUVOXAMINE MALEATE 50 MG ORAL TABLET 564457 FLUVOXAMINE MALEATE Inactive LEVEMIR FLEXTOUCH 100 UNIT/ML [...] 30G 3 a day TRUEPLUS LANCETS 30G 26408318087 LANCETS Inactive AMITIZA 24 MCG ORAL CAPSULE [...] noon FLUVOXAMINE MALEATE 100 MG ORAL TABLET 771853 FLUVOXAMINE MALEATE Inactive FLONASE ALLERGY RELIEF 50 MCG/ACT NASAL SUSPENSION One spray each nostril BID x 1 week then daily FLONASE ALLERGY RELIEF 50 MCG/ACT NASAL SUSPENSION 3141839 FLUTICASONE PROPIONATE Inactive IMODIUM A-D 2 MG ORAL TABLET 1 tab QID as needed IMODIUM A-D 2 MG ORAL TABLET 676302 LOPERAMIDE HCL Inactive MYLANTA GAS RELIEF MAXIMUM STR 125 MG ORAL CAPSULE 30cc every 4 hours prn MYLANTA GAS RELIEF MAXIMUM STR 125 MG ORAL CAPSULE SIMETHICONE Inactive TRUEPLUS LANCETS 30G 3x a day TRUEPLUS LANCETS 30G 31681147747 LANCETS Inactive TRUE METRIX BLOOD GLUCOSE TEST [...] headaches TRAZODONE HCL 100 MG ORAL TABLET 493593 TRAZODONE HCL Inactive TYLENOL 8 HOUR 650 [...] evening TAMSULOSIN HCL 0.4 MG ORAL CAPSULE 256509 TAMSULOSIN HCL Inactive [facility] MELATONIN 3 MG ORAL TABLET give 1 tab by mouth at HS [facility] MELATONIN 3 MG ORAL TABLET 670042 MELATONIN Inactive SEROQUEL 100 MG ORAL TABLET 1 tab daily SEROQUEL 100 MG ORAL TABLET 772789 QUETIAPINE FUMARATE Inactive CEFDINIR 300 MG ORAL CAPSULE by mouth twice a day CEFDINIR 300 MG ORAL CAPSULE 109582 CEFDINIR Inactive AZITHROMYCIN 500 MG INTRAVENOUS SOLUTION RECONSTITUTED 1 po q day AZITHROMYCIN 500 MG INTRAVENOUS SOLUTION RECONSTITUTED 24677432076 AZITHROMYCIN Inactive AMOXICILLIN 500 MG ORAL CAPSULE 2 po BID x 10 days AMOXICILLIN 500 MG ORAL CAPSULE 186060 AMOXICILLIN Inactive PENICILLIN V POTASSIUM 500 MG ORAL TABLET 1 pill by mouth three times daily PENICILLIN V POTASSIUM 500 MG ORAL TABLET 412291 PENICILLIN V POTASSIUM Inactive KEFLEX 500 MG ORAL CAPSULE 1 po BID x 7 days KEFLEX 500 MG ORAL CAPSULE 400606 CEPHALEXIN Inactive Immunizations Vaccine Administration Date Value [...] Fluvirin, Fluarix, Agriflu(>=18 yo)) Fluzone (>3 yrs.) [PHP474] Influenza, seasonal, injectable pneumococcal immunization administered Pneumovax [...] ... - Chemistry sodium, serum 135 mmol/L [phone]/08/22 carbon dioxide, venous blood 28.4 mmol/L 21.0-32.0 [...] mg/g {creat} 0-29 cholesterol, serum 263 mg/dL 237-740 4878/08/22 triglyceride, serum, fasting 1312 mg/dL 30-200 HDL [...] 80 mg/L 0-19 Office Visit: TCM from [facility] - Lab PSA (prostate specific antigent), recommendation and action PSA ordered Encounters Code Encounter Date Provider Facility CPT-[id number] Vst-Est Level III 11:00:25 CDT Shavonne Feliciano PA-C [facility] CPT-72785 Level 3 Est. Patient 09:12:14 SEED ANALYST Mima Erazo [facility] CPT-89828 Level 3 Est. Patient 16:52:51 CDT Vanessa Hickey MD [facility] CPT-99416 Level 3 Est. Patient 17:40:16 CDT Mima Erazo [facility] CPT-48730 Level 3 Est. Patient 14:34:52 CDT Vanessa Hickey MD [facility] CPT-00178 Level 3 Est. Patient 16:27:51 CDT Mima Erazo [facility] CPT-08368 Level 3 Est. Patient 14:39:00 SEED ANALYST Vanessa Hickey MD [facility] CPT-11707 Level 2 Est. Patient 18:43:34 CDT Mima Erazo [facility] CPT-18381 Level 3 Est. Patient 16:22:09 CDT Cherelle Avila [facility] CPT-76281 Level 4 Est. Patient 17:55:14 CDT Mima Erazo [facility] CPT-79991 Level 2 Est. Patient 17:13:21 CDT Alina Castaneda MD [facility]-21983 Level 3 Est. Patient 14:46:15 CDT Vanessa Hickey MD [facility]-22636 Level 3 Est. Patient 09:34:56 CDT Alina Castaneda MD [facility]-18984 Level 3 Est. Patient 21:40:19 CDT Mima Erazo [facility]-71589 Level 3 Est. Patient 09:26:40 CDT Marvel [facility]-42367 Level 3 Est. Patient 12:36:43 CDT Vanessa Hickey MD [facility]-38549 Level 3 Est. Patient 12:57:49 CDT Vanessa Hickey MD [facility]-44739 Level 3 Est. Patient 00:28:25 CDT Alina Castaneda MD [facility]-29541 Level 2 Est. Patient 12:52:14 CDT Alina Castaneda MD [facility]-70777 Level 3 Est. Patient 11:51:18 SEED ANALYST Alina Castaneda MD [facility]-06614 Level 3 Est. Patient 10:09:22 SEED ANALYST Alina Castaneda MD [facility]-17070 Level 3 Est. Patient 14:36:26 SEED ANALYST Marvel [facility]-43027 Level 3 Est. Patient 13:34:47 SEED ANALYST Alina Castaneda MD [facility]-37516 Level 3 Est. Patient 19:52:08 SEED ANALYST Alina Castaneda MD PhD [facility]-34161 Level 3 Est. Patient 10:01:51 SEED ANALYST Marvel [facility]-77590 Level 3 Est. Patient 21:54:06 CDT Vanessa Hickey MD [facility]-04067 Level 3 Est. Patient 08:54:46 CDT Alina Castaneda MD PhD [facility]-28861 Level 3 Est. Patient 09:32:11 CDT Marvel [facility]-34961 Level 3 Est. Patient 12:02:49 CDT Alina Castaneda MD [facility]-82139 Level 3 Est. Patient 19:17:33 CDT Alina Castaneda MD [facility]-26297 Level 3 Est. Patient 13:19:10 CDT [facility]-77611 Level 3 Est. Patient 08:20:05 CDT Alina Castaneda MD [facility]-20566 Level 3 Est. Patient 15:17:18 CDT Alina Castaneda MD [facility]-94600 Level 3 Est. Patient 14:25:36 SEED ANALYST Marvel [facility]-24009 Level 3 Est. Patient 10:09:15 SEED ANALYST Marvel [facility]-43648 Level 3 Est. Patient 21:28:43 CDT Alina Castaneda MD [facility]-42743 Level 3 Est. Patient 15:20:11 CDT Marvel [facility]-91645 Level 4 Est. Patient 19:08:12 CDT Alina Castaneda MD [facility]-60790 Level 3 Est. Patient 15:06:39 CDT Marvel [facility]-12346 Level 4 Est. Patient 17:48:15 CDT Alina Castaneda MD [facility]-13664 Level 3 Est. Patient 14:53:49 CDT Alina Castaneda MD [facility]-87212 Level 3 Est. Patient 09:35:16 CDT Alina Castaneda MD [facility]-55474 Level 3 Est. Patient 12:23:22 CDT Alina Castaneda MD [facility]-60629 Level 3 Est. Patient 16:19:15 CDT Alina Castaneda MD [facility]-61803 Level 3 Est. Patient 21:39:56 SEED ANALYST Alina Castaneda MD [facility]-98155 Level 4 Est. Patient 14:12:56 SEED ANALYST Alina Castaneda MD [facility]-35395 Level 2 Est. Patient 15:34:57 SEED ANALYST Alina Castaneda MD [facility]-07878 Level 3 Est. Patient 12:17:04 SEED ANALYST Alina Castaneda MD [facility]-57692 Level 3 Est. Patient 09:18:18 SEED ANALYST Marvel [facility]-01652 Level 2 Est. Patient 21:50:24 CDT Alina Castaneda MD [facility]-50944 Level 3 Est. Patient 09:17:28 CDT Marvel [facility]-96798 Level 4 Est. Patient 18:54:02 CDT Alina Castaneda MD [facility] CPT-16891 Level 3 Est. Patient 10:47:10 CDT Alina Castaneda MD [facility] CPT-22010 Level 3 Est. Patient 09:22:20 CDT Marvel [facility] CPT-22966 Level 3 Est. Patient 16:39:43 CDT Brooksnivia [facility] CPT-71058 Level 3 Est. Patient 16:05:16 CDT Alina Castaneda MD [facility]-54318 Level 3 Est. Patient 00:29:15 CDT Alina Castaneda MD [facility]-90120 Level 3 Est. Patient 10:49:22 SEED ANALYST Marvel [facility] CPT-17225 Level 3 Est. Patient 21:30:19 SEED ANALYST Alina Castaneda MD [facility] CPT-48636 Level 4 Est. Patient 17:04:11 SEED ANALYST Marvel [facility] CPT-61333 Level 3 Est. Patient 15:34:11 [facility]-73946 Level 2 Est. Patient 12:51:58 SEED ANALYST Alina Castaneda MD [facility] CPT-53479 Level 3 Est. Patient 13:20:01 SEED ANALYST Alina Castaneda MD [facility] CPT-06347 Level 3 Est. Patient 09:23:35 CDT Alina Castaneda MD PhD [facility] Procedures Code Procedure Name Date Entry Date Standard Description CPT-TCMM Transitional Care Mgmt-Moderate 12:32:19 CDT CPT-30732 Level 2 Group Home 09:01:11 CDT CPT-70814 HGBA1C - LAB USE ONLY 09:30:27 SEED ANALYST CPT-57352 BMP - LAB USE ONLY 09:30:27 SEED ANALYST CPT-09241 Venipuncture Draw Fee 09:30:26 SEED ANALYST CPT-TCMM Transitional Care Mgmt-Moderate 10:25:31 CDT CPT-64299 Bladder Scan 14:34:53 CDT CPT-21179 Bladder Scan 14:39:01 SEED ANALYST CPT-TCMM Transitional Care Mgmt-Moderate 10:30:19 SEED ANALYST CPT-71360 Bladder Scan 12:36:44 CDT CPT-45804 Bladder Scan 21:54:06 CDT CPT-G0008 Administration of Influenza Virus Vaccine 13:05:26 CDT CPT-29082 Fluzone Quadrivalent Intramuscular Suspension 0.5 ML 13: 05:26 CDT CPT-42793 Administration single or combination vaccine inc oral 11 :49:51 CDT CPT-91541 Pneumovax 11:49:51 CDT CPT-29029 Ribs unilateral 2V 12:37:22 SEED ANALYST CPT-47579 Chest 2V Frontal and Lat 17:15:26 CDT CPT-31021 Abx/Therapy Injection 18:54:02 CDT CPT-J0696 Rocephin 1000 mg (Ceftriaxone) 16:00:32 CDT CPT-72722 Chest 2V Frontal and Lat 15:26:45 CDT CPT-84524 Chest 2V Frontal and Lat 10:23:27 CDT CPT-40463 Venipuncture Draw Fee 10:11:00 CDT CPT-18607 Administration single or combination vaccine inc oral 11 :56:38 CDT CPT-36018 Influenza split virus > age 3 11:56:38 CDT CPT-85900 Venipuncture Draw Fee 08:49:54 SEED ANALYST CPT-98538 EKG Trac and Interp 17:54:19 SEED ANALYST
[2018-07-02 12:40] LABS: BACTERIA,URINE NEGATIVE /HPF; SQUAMOUS EPITHELIAL CELL,UR 0-2 /HPF
[2018-07-02 12:41] LABS: URINE OTHER MOD SPERM /HPF
--- OUTSIDE RECORDS SUMMARY | 2018-07-02 12:41 | XMS REPORT | Clinical Summary ---
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 Diabetes mellitus without mention of complication, type [...] and floor of mouth, uncomplicated 873.64 Resolved lAina Castaneda MD PhD Open wound of tongue [...] TACHYCARDIA ICD-785.0 Inactive Alina Castaneda MD PhD PROBLEMS RELATED TO HIGH-RISK SEXUAL BEHAVIOR ICD-V69.2 Inactive Alina Castaneda MD PhD CHEST COUGH ICD-786.2 Inactive Alina Castaneda MD PhD SINUSITIS, ACUTE ICD-461.9 Inactive Alina Castaneda MD PhD BRONCHITIS, ACUTE ICD-466.0 Inactive Alina Castaneda MD PhD PNEUMONIA, ORGANISM UNSPECIFIED ICD-486 Inactive Alina Castaneda MD PhD RIB PAIN, RIGHT SIDED ICD-786.50 Inactive Alina Castaneda MD PhD ABNORMAL HEART RHYTHMS ICD-427.9 Inactive Alina Castaneda MD PhD SKIN LESION ICD-709.9 Inactive Alina Castaneda MD PhD DIABETIC HYPOGLYCEMIA, [...] ORAL TABLET 1 tab daily QUETIAPINE FUMARATE 52398768018 No Longer Active Shavonne Feliciano PA-C Active SEROQUEL 25 MG ORAL TABLET Take two tabs by mouth in the morning, take 4 tablets at night QUETIAPINE FUMARATE 94609137654 Active Shavonne Feliciano PA-C Active [facility] MELATONIN 3 MG ORAL TABLET give 1 tab by mouth at HS MELATONIN 73642126175 No Longer Active Gabrielle Alma NOEL Active NOVOLOG FLEXPEN 100 UNIT/ML SUBCUTANEOUS SOLUTION PEN-INJECTOR sliding scale INSULIN ASPART 97204882805 Active Gabrielle Littleananda BERT Active METFORMIN HCL 1000 MG ORAL TABLET 1 tab by mouth BID METFORMIN HCL 57979851575 Active Gabrielle Littleananda BERT Active [facility] MELATONIN 3 MG ORAL TABLET 1 tab nightly MELATONIN 63733076608 Active Gabrielle Littleananda BERT Active TAMSULOSIN HCL 0.4 MG ORAL CAPSULE give 2 capsules PO each evening TAMSULOSIN HCL 81162650537 No Longer Active Gabrielle Littleananda BERT Active VITAMIN D 2000 UNIT ORAL CAPSULE Take one by mouth daily CHOLECALCIFEROL 99799767377 No Longer Active Gabrielle Littleananda BERT Active LATUDA 40 MG ORAL TABLET 1.5 tab by mouth in the afternoon LURASIDONE HCL 00256789117 Active Gabrielle Littleananda BERT Active LEVEMIR 100 UNIT/ML SUBCUTANEOUS SOLUTION 10 u at bedtime INSULIN DETEMIR 68550280383 Active Gabrielle Littleananda BERT Active TAMSULOSIN HCL 0.4 MG ORAL CAPSULE 2 every night for urine flow TAMSULOSIN HCL 47127984838 Active Gabrielle Marquez MA Active DIVALPROEX SODIUM 125 MG ORAL TABLET DELAYED RELEASE 1 tab each morning 02/17 DIVALPROEX SODIUM 03862833291 Active Gabrielle Marquez MA Active D 1000 TABLET 2 tab by mouth BID CHOLECALCIFEROL TABS 23487822447 Active Gabrielle Marquez MA Active ALIGN 4 MG ORAL CAPSULE 1 tab at hs PROBIOTIC PRODUCT 96550417772 Active Gabrielle Marquez MA Active CLONAZEPAM 1 MG ORAL TABLET 1 pill by mouth two times daily CLONAZEPAM 92127864116 Active Gabrielle Marquez MA Active FENOFIBRATE 160 MG ORAL TABLET Take 1 tablet by mouth daily FENOFIBRATE 03588475347 Active Mya Ledezma MA Active OCEAN NASAL SPRAY SOLUTION 2 sprays in both nostrils every 8 hours as needed for dry mucous membranes SALINE SOLN 25330718489 Active Mason Loredo MD Active BETHANECHOL CHLORIDE 25 MG ORAL TABLET Take 1 tablet mouth four times a day BETHANECHOL CHLORIDE 37996306967 Active Mason Loredo MD Active [facility] LUBRICANT EYE DROPS 0.4-0.3 % OPHTHALMIC SOLUTION POLYETHYL GLYCOL-PROPYL GLYCOL 63415591407 No Longer Active Mason Loredo MD Active TYLENOL 8 HOUR 650 MG ORAL TABLET EXTENDED RELEASE 1 tab QID prn ACETAMINOPHEN 92913675521 No Longer Active Mason Loredo MD Active TOPAMAX 25 MG ORAL TABLET 1 tab BID PRN TOPIRAMATE 39953555069 Active Mason Loredo MD Active TIMOPTIC OCUDOSE 0.5 % OPHTHALMIC SOLUTION instill one drop into both eyes q12H TIMOLOL MALEATE 00424163461 Active Mason Loredo MD Active TRAZODONE HCL 100 MG ORAL TABLET 1 every night to prevent headaches TRAZODONE HCL 00065890861 No Longer Active Mason Loredo MD Active TRAVATAN Z 0.004 % OPHTHALMIC SOLUTION 1 drop each eye daily 2017 TRAVOPROST 62418865757 No Longer Active Mason Loredo MD Active LATUDA 60 MG ORAL TABLET 1 tab daily LURASIDONE HCL 31567171948 No Longer Active Mason Loredo MD Active MORPHINE SULFATE ER 30 MG ORAL TABLET EXTENDED RELEASE Take one capsule BID MORPHINE SULFATE 61519120336 No Longer Active Mason Loredo MD Active TRUE METRIX BLOOD GLUCOSE TEST IN VITRO STRIP Check blood sugars 3x/day. 2015 GLUCOSE BLOOD 30774919958 No Longer Active Mason Loredo MD Active TRUEPLUS LANCETS 30G 3x a day LANCETS 05515153843 No Longer Active Mason Loredo MD Active MYLANTA GAS RELIEF MAXIMUM STR 125 MG ORAL CAPSULE 30cc every 4 hours prn SIMETHICONE 98894448070 No Longer Active Mason Loredo MD Active IMODIUM A-D 2 MG ORAL TABLET 1 tab QID as needed LOPERAMIDE HCL 55600290957 No Longer Active Mason Loredo MD Active FLONASE ALLERGY RELIEF 50 MCG/ACT NASAL SUSPENSION One spray each nostril BID x 1 week then daily FLUTICASONE PROPIONATE 56909689295 No Longer Active Mason Loredo MD Active FLUVOXAMINE MALEATE 100 MG ORAL TABLET take one tab every AM et HS, and take 1 /2 tab at noon FLUVOXAMINE MALEATE 77478155249 No Longer Active Mason Loredo MD Active BD PEN NEEDLE MINI U/F 31G X 5 MM 4 a day INSULIN PEN NEEDLE 96383590542 No Longer Active Mason Loredo MD Active AMITIZA 24 MCG ORAL CAPSULE Take one capsule BID for constipation LUBIPROSTONE 18578580328 No Longer Active Mason Loredo MD Active TRUEPLUS LANCETS 30G 3 a day LANCETS 71598677985 No Longer Active Mason Loredo MD Active CORICIDIN HBP CONGESTION/COUGH 10-200 MG ORAL CAPSULE Take as directed on box as needed for cold/flu symptoms DEXTROMETHORPHAN- GUAIFENESIN 47648704004 No Longer Active Mason Loredo MD Active OMEGA-3 300 MG ORAL CAPSULE 4 caps by mouth daily OMEGA-3 FATTY ACIDS 90147419981 No Longer Active Mason Loredo MD Active HUMALOG KWIKPEN 100 UNIT/ML SUBCUTANEOUS SOLUTION PEN-INJECTOR sliding scale if needed INSULIN LISPRO (HUMAN) 32973717987 No Longer Active Mason Loredo MD Active TRUETEST TEST IN VITRO STRIP check blood sugars 3x/day GLUCOSE BLOOD 74766605762 No Longer Active Mason Loredo MD Active ALFUZOSIN HCL ER 10 MG ORAL TABLET EXTENDED RELEASE 24 HOUR 1 tablet daily ALFUZOSIN HCL 86331463731 No Longer Active Mason Loredo MD Active BD INSULIN SYRINGE 28G X 1/2" 1 ML 1 four times per day INSULIN SYRINGE-NEEDLE U-100 02943868795 No Longer Active Mason Loredo MD Active LEVEMIR FLEXTOUCH 100 UNIT/ML SUBCUTANEOUS SOLUTION PEN-INJECTOR 60 units SQ each evening, for diabetes INSULIN DETEMIR 95060220829 No Longer Active Mason Loredo MD Active LACTULOSE 20 GM/30ML ORAL SOLUTION give 30 Ml PO BID PRN LACTULOSE 67729086850 Active Mason Loredo MD Active COLACE 100 MG ORAL CAPSULE 1 tab BID PRN DOCUSATE SODIUM 25569976918 Active Mason Loredo MD Active LATANOPROST 0.005 % OPHTHALMIC SOLUTION instill 1 drop in both eyes at bed time LATANOPROST 54821977990 Active Mason Loredo MD Active AMARYL 2 MG ORAL TABLET give 2.5 tabs PO daily GLIMEPIRIDE 74975377372 Active Mason Loredo MD Active MIRALAX ORAL POWDER 17g by mouth q12h, for constipation POLYETHYLENE GLYCOL 3350 15911406120 Active Mason Loredo MD Active IBUPROFEN 400 MG ORAL TABLET 1 tab Q6H PRN IBUPROFEN 43574260213 Active Mason Loredo MD Active EFFEXOR XR 37.5 MG ORAL CAPSULE EXTENDED RELEASE 24 HOUR Take one by mouth daily VENLAFAXINE HCL 03887236376 Active Mima Erazo APRN Active FLUVOXAMINE MALEATE 50 MG ORAL TABLET 1 tab by mouth daily 04/01 FLUVOXAMINE MALEATE 21055666473 No Longer Active Mima Erazo APRN Active TRUE METRIX METER w/Device KIT Check blood sugars 3x/day BLOOD GLUCOSE MONITORING SUPPL 30317694780 Active Marvel Charles 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 LATUDA 60 MG ORAL TABLET Take one by mouth daily LURASIDONE HCL 19630350649 No Longer Active Mima Erazo APRN Active [facility] MILK OF MAGNESIA 400 MG/5ML ORAL SUSPENSION 30ml by mouth bid prn MAGNESIUM HYDROXIDE 77277046868 Active Mason Loredo MD Active TRAVATAN Z 0.004 % OPHTHALMIC SOLUTION 1 gtt each eye daily TRAVOPROST 63550729734 No Longer Active Mason Loredo MD Active LISINOPRIL 20 MG ORAL TABLET 1 BID LISINOPRIL 56806035061 No Longer Active Mason Loredo MD Active ZOLPIDEM TARTRATE 10 MG ORAL TABLET take at bedtime ZOLPIDEM TARTRATE 42744652123 No Longer Active Mason Loredo MD Active HYDROCODONE-ACETAMINOPHEN 5-325 MG ORAL TABLET 2 tabs by mouth three times daily for pain HYDROCODONE-ACETAMINOPHEN 86459010735 No Longer Active Mason Loredo MD Active ZOFRAN 4 MG ORAL TABLET 1 po q4hr PRN Nausea ONDANSETRON HCL 12191725359 No Longer Active Mason Loredo MD Active LOMOTIL 2.5-0.025 MG ORAL TABLET take 1-2 tabs PO after each stool, no more than 8 in 24 hours DIPHENOXYLATE-ATROPINE 09158329797 No Longer Active Mason Loredo MD Active COLACE 100 MG ORAL CAPSULE 1 pill by mouth twice daily, for constipation 2014 DOCUSATE SODIUM 77548301200 No Longer Active Mima Erazo APRN Active TOLTERODINE TARTRATE 2 MG ORAL TABLET 1 pill twice daily, for bladder TOLTERODINE TARTRATE 35581469690 No Longer Active Vanessa Hickey MD Active AMITIZA 24 MCG ORAL CAPSULE Take one capsule BID for constipation. LUBIPROSTONE 45434229509 No Longer Active Vanessa Hickey MD Active METOPROLOL SUCCINATE ER 100 MG ORAL TABLET EXTENDED RELEASE 24 HOUR 1 by mouth daily for blood pressure METOPROLOL SUCCINATE 95097416992 No Longer Active Grace Nascimento RMA Active METFORMIN HCL ER 500 MG ORAL TABLET EXTENDED RELEASE 24 HOUR Take three tablets by mouth everyday METFORMIN HCL 46096805200 No Longer Active Grace Nelsonb RMA Active LOVAZA 1 GM ORAL CAPSULE 4 daily (for triglycerides) [id number] ETHYL ESTERS 25596313639 No Longer Active Grace Azam RMA Active TRAZODONE HCL 100 MG ORAL TABLET 1 tab by mouth for sleep TRAZODONE HCL 79111503694 No Longer Active Grace Azam RMA Active NOVOFINE 32G X 6 MM use one four times per day INSULIN PEN NEEDLE 35436504325 No Longer Active Grace Azam RMA Active BACTROBAN 2 % EXTERNAL CREAM Apply to affected area BID for up to 10 days MUPIROCIN CALCIUM 99243223839 No Longer Active Grace Azam RMA Active KEFLEX 500 MG ORAL CAPSULE 1 po BID x 7 days CEPHALEXIN 73626649854 No Longer Active Cherelle Avila APRN Active FLUVOXAMINE MALEATE 100 MG ORAL TABLET Take one (1) tablet by mouth am, 1/2 at noon FLUVOXAMINE MALEATE 28088225683 No Longer Active Mima Erazo APRN Active FLUVOXAMINE MALEATE 100 MG ORAL TABLET Take 1/2 tab at noon 03/04 FLUVOXAMINE MALEATE 90799827423 No Longer Active Cherelle Avila APRN Active ACCU-CHEK ROSA DEVICE Use device to check blood sugars BLOOD GLUCOSE MONITORING SUPPL 33301490623 No Longer Active Marvel Araceli MARROQUIN Active ACCU-CHEK ROSA IN VITRO STRIP use strips with device to check blood sugars 3 times daily GLUCOSE BLOOD 28355112953 No Longer Active Marvel Mackenzieajayari 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 INSULIN LISPRO (HUMAN) 91385299656 No Longer Active Alina Castaneda MD PhD Active TRUETEST TEST IN VITRO STRIP check sugars 4x/day GLUCOSE BLOOD 61889690517 No Longer Active Alina Castaneda MD PhD Active MORPHINE SULFATE 30 MG ORAL TABLET 1 pill by mouth twice daily, for pain 2013 MORPHINE SULFATE 54565962375 No Longer Active Mason Loredo MD Active ACYCLOVIR 400 MG ORAL TABLET 1 pill three times daily x 5 days, for cold sore outbreak ACYCLOVIR 67471852817 No Longer Active Alina Castaneda MD PhD Active PENICILLIN V POTASSIUM 500 MG ORAL TABLET 1 pill by mouth three times daily PENICILLIN V POTASSIUM 95125148973 No Longer Active Alina Castaneda MD PhD Active UROXATRAL 10 MG ORAL TABLET EXTENDED RELEASE 24 HOUR Take 1 tablet by mouth daily ALFUZOSIN HCL 28011403955 No Longer Active Alina Castaneda MD PhD Active THIOTHIXENE 5 MG ORAL CAPSULE by mouth twice a day THIOTHIXENE 46355513799 No Longer Active Alina Castaneda MD PhD Active ZYPREXA 7.5 MG ORAL TABLET 1 at HS OLANZAPINE 59111879132 No Longer Active Alina Castaneda MD PhD Active DETROL LA 4 MG ORAL CAPSULE EXTENDED RELEASE 24 HOUR Take 1 tablet by mouth daily TOLTERODINE TARTRATE 12492115241 No Longer Active Alina Castaneda MD PhD Active TERESE CONTOUR TEST IN VITRO STRIP monitor blood sugars 3x/day GLUCOSE BLOOD 04685339788 No Longer Active Alina Castaneda MD PhD Active EQL TRUETEST TEST IN VITRO STRIP Test blood sugar TID GLUCOSE BLOOD 62166773925 No Longer Active Alina Castaneda MD PhD Active FLUTICASONE PROPIONATE 50 MCG/ACT NASAL SUSPENSION 2 sprays each nostril qDay x 30 days FLUTICASONE PROPIONATE 69706762654 No Longer Active Alina Castaneda MD PhD Active IBUPROFEN 200 MG ORAL TABLET 1 Q 6 hr. PRN IBUPROFEN 20654838621 No Longer Active Alina Castaneda MD PhD Active NIACIN ER 500 MG ORAL TABLET EXTENDED RELEASE 4 qHS (for triglycerides) 01/13 NIACIN 42642774525 No Longer Active Alina Castandea MD PhD Active SAPHRIS 5 MG SUBLINGUAL TABLET SUBLINGUAL by mouth twice a day ASENAPINE MALEATE 60237880816 No Longer Active Maljohn MARROQUIN Active ACETAMINOPHEN 500 MG ORAL TABLET 2 Q 6 hr. PRN ACETAMINOPHEN 24288737568 No Longer Active Malihnivia Ziglari 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 ORPHENADRINE CITRATE ER 100 MG ORAL TABLET EXTENDED RELEASE 12 HOUR 1 every 12 hr. as needed ORPHENADRINE CITRATE 34151171445 No Longer Active Alina Castaneda MD PhD Active NIACIN ER 500 MG ORAL TABLET EXTENDED RELEASE 2 qHS NIACIN 35993306440 No Longer Active Alina Castaneda MD PhD Active AMOXICILLIN 500 MG ORAL CAPSULE 2 po BID x 10 days AMOXICILLIN 85804515534 No Longer Active Alina Castaneda MD PhD Active HYDROCODONE-ACETAMINOPHEN 7.5-325 MG ORAL TABLET 1 four times a day as needed for pain HYDROCODONE-ACETAMINOPHEN 92923724320 No Longer Active Alina Castaneda MD PhD Active DOXEPIN HCL 10 MG ORAL CAPSULE Take 1 tablet by mouth daily DOXEPIN HCL 46407482100 No Longer Active Salina Han A Active NAVANE 10 MG CAPS 1/2 tablet twice a day THIOTHIXENE No Longer Active Salina ROBBINSA Active CYCLOBENZAPRINE HCL 10 MG ORAL TABLET 1/2 tablet by mouth every 8 hours as needed for muscle spasms CYCLOBENZAPRINE HCL 03410588365 No Longer Active Alina Castaneda MD PhD Active BACTROBAN 2 % EXTERNAL CREAM apply to ear and nose twice daily MUPIROCIN CALCIUM 67939215410 No Longer Active Alina Castaneda MD PhD Active HYDROCODONE-ACETAMINOPHEN 5-325 MG ORAL TABLET take one tablet by mouth every four hours as needed for pain HYDROCODONE-ACETAMINOPHEN 47070140344 No Longer Active Alina Castaneda MD PhD Active ZYPREXA 5 MG ORAL TABLET take one tablet by mouth every evening OLANZAPINE 16245872887 No Longer Active Alina Castaneda MD PhD Active ALBUTEROL SULFATE (2.5 MG/3ML) 0.083% INHALATION NEBULIZATION SOLUTION one vial per nebulizer TID and PRN cough/soa ALBUTEROL SULFATE 18800209417 No Longer Active Alina Castaneda MD PhD Active GUAIFENESIN ER 600 MG ORAL TABLET EXTENDED RELEASE 12 HOUR 1 tablet by mouth twice daily if needed for cough GUAIFENESIN 26906955702 No Longer Active Marvel MARROQUIN Active AZITHROMYCIN 500 MG INTRAVENOUS SOLUTION RECONSTITUTED 1 po q day AZITHROMYCIN 24205977027 No Longer Active Alina Castaneda MD PhD Active PROMETHAZINE-CODEINE 6.25-10 MG/5ML ORAL SYRUP 1 tsp po q 6 hours prn cough PROMETHAZINE-CODEINE 11971637702 No Longer Active Alina Castaneda MD PhD Active CEFDINIR 300 MG ORAL CAPSULE by mouth twice a day CEFDINIR 97555068814 No Longer Active Alina Castaneda MD PhD Active METFORMIN HCL ER 500 MG ORAL TABLET EXTENDED RELEASE 24 HOUR Take 3 tablets by mouth everyday METFORMIN HCL 23933798634 No Longer Active Alina Castaneda MD PhD Active LEVEMIR 100 UNIT/ML SUBCUTANEOUS SOLUTION 90 units SQ qHS INSULIN DETEMIR 28270459728 No Longer Active Marvel MARROQUIN Active TOPROL XL 100 MG ORAL TABLET EXTENDED RELEASE 24 HOUR 1 @ HS METOPROLOL SUCCINATE 90851412515 No Longer Active Marvel MARROQUIN Active ALLOPURINOL 300 MG ORAL TABLET Take one by mouth daily ALLOPURINOL 39351332828 Active Mima Erazo MOUNTER Active ZYPREXA 10 MG ORAL TABLET Take one by mouth daily OLANZAPINE 25393384922 No Longer Active Alina Castaneda MD PhD Active NOVOLOG 100 UNIT/ML SUBCUTANEOUS SOLUTION 40 units with every meal INSULIN ASPART 78084594090 No Longer Active Alina Castaneda MD PhD Active VERAPAMIL HCL ER 120 MG ORAL TABLET EXTENDED RELEASE 1 qPM 09/08 VERAPAMIL HCL 37271207745 No Longer Active Salina ROJAS Active ZYPREXA 15 MG ORAL TABLET Take 1 tablet by mouth daily OLANZAPINE 44264284323 No Longer Active Marvel MARROQUIN Active ALBUTEROL SULFATE (2.5 MG/3ML) 0.083% INHALATION NEBULIZATION SOLUTION 1 neb tid and prn cough ALBUTEROL SULFATE 82424459904 No Longer Active Alina Castaneda MD PhD Active LANTUS 100 UNIT/ML SUBCUTANEOUS SOLUTION 60 units sq q hs INSULIN GLARGINE 64460586294 No Longer Active CRYSTAL Suarez Active ALBUTEROL SULFATE (2.5 MG/3ML) 0.083% INHALATION NEBULIZATION SOLUTION 1 neb tid and prn cough ALBUTEROL SULFATE (2.5 MG/3ML) 0.083% INHALATION NEBULIZATION SOLUTION 011900 ALBUTEROL SULFATE Inactive ZYPREXA 15 MG ORAL TABLET Take 1 tablet by mouth daily ZYPREXA 15 MG ORAL TABLET 770008 OLANZAPINE Inactive VERAPAMIL HCL ER 120 MG ORAL TABLET EXTENDED RELEASE 1 qPM 09/08 VERAPAMIL HCL ER 120 MG ORAL TABLET EXTENDED RELEASE VERAPAMIL HCL Inactive ZYPREXA 10 MG ORAL TABLET Take one by mouth daily ZYPREXA 10 MG ORAL TABLET 783495 OLANZAPINE Inactive TOPROL XL 100 MG ORAL TABLET EXTENDED RELEASE 24 HOUR 1 @ HS TOPROL XL 100 MG ORAL TABLET EXTENDED RELEASE 24 HOUR METOPROLOL SUCCINATE Inactive LEVEMIR 100 UNIT/ML SUBCUTANEOUS SOLUTION 90 units SQ qHS LEVEMIR 100 UNIT/ML SUBCUTANEOUS SOLUTION INSULIN DETEMIR Inactive PROMETHAZINE-CODEINE 6.25-10 MG/5ML ORAL SYRUP 1 tsp po q 6 hours prn cough PROMETHAZINE-CODEINE 6.25-10 MG/5ML ORAL SYRUP 544135 PROMETHAZINE-CODEINE Inactive GUAIFENESIN ER 600 MG ORAL TABLET EXTENDED RELEASE 12 HOUR 1 tablet by mouth twice daily if needed for cough GUAIFENESIN ER 600 MG ORAL TABLET EXTENDED RELEASE 12 HOUR GUAIFENESIN Inactive ALBUTEROL SULFATE (2.5 MG/3ML) 0.083% INHALATION NEBULIZATION SOLUTION one vial per nebulizer TID and PRN cough/soa ALBUTEROL SULFATE (2.5 MG/3ML) 0.083% INHALATION NEBULIZATION SOLUTION 461535 ALBUTEROL SULFATE Inactive ZYPREXA 5 MG ORAL TABLET take one tablet by mouth every evening ZYPREXA 5 MG ORAL TABLET 725888 OLANZAPINE Inactive HYDROCODONE-ACETAMINOPHEN 5-325 MG ORAL TABLET take one tablet by mouth every four hours as needed for pain HYDROCODONE-ACETAMINOPHEN 5-325 MG ORAL TABLET 973532 HYDROCODONE-ACETAMINOPHEN Inactive BACTROBAN 2 % EXTERNAL CREAM apply to ear and nose twice daily BACTROBAN 2 % EXTERNAL CREAM 813336 MUPIROCIN CALCIUM Inactive CYCLOBENZAPRINE HCL 10 MG ORAL TABLET 1/2 tablet by mouth every 8 hours as needed for muscle spasms CYCLOBENZAPRINE HCL 10 MG ORAL TABLET 615933 CYCLOBENZAPRINE HCL Inactive NAVANE 10 MG CAPS 1/2 tablet twice a day NAVANE 10 MG CAPS THIOTHIXENE Inactive DOXEPIN HCL 10 MG ORAL CAPSULE Take 1 tablet by mouth daily DOXEPIN HCL 10 MG ORAL CAPSULE 3356974 DOXEPIN HCL Inactive HYDROCODONE-ACETAMINOPHEN 7.5-325 MG ORAL TABLET 1 four times a day as needed for pain HYDROCODONE-ACETAMINOPHEN 7.5-325 MG ORAL TABLET 356424 HYDROCODONE-ACETAMINOPHEN Inactive NIACIN ER 500 MG ORAL [...] hr. PRN ACETAMINOPHEN 500 MG ORAL TABLET 111439 ACETAMINOPHEN Inactive SAPHRIS 5 MG SUBLINGUAL TABLET SUBLINGUAL by mouth twice a day SAPHRIS 5 MG SUBLINGUAL TABLET SUBLINGUAL ASENAPINE MALEATE Inactive NIACIN ER 500 MG ORAL TABLET EXTENDED RELEASE 4 qHS (for triglycerides) 01/13 NIACIN ER 500 MG ORAL TABLET EXTENDED RELEASE NIACIN Inactive IBUPROFEN 200 MG ORAL TABLET 1 Q 6 hr. PRN IBUPROFEN 200 MG ORAL TABLET 493271 IBUPROFEN Inactive FLUTICASONE PROPIONATE 50 MCG/ACT NASAL SUSPENSION 2 sprays each nostril qDay x 30 days FLUTICASONE PROPIONATE 50 MCG/ACT NASAL SUSPENSION 2172627 FLUTICASONE PROPIONATE Inactive EQL TRUETEST TEST IN [...] at HS ZYPREXA 7.5 MG ORAL TABLET 816001 OLANZAPINE Inactive THIOTHIXENE 5 MG ORAL CAPSULE by mouth twice a day THIOTHIXENE 5 MG ORAL CAPSULE 443848 THIOTHIXENE Inactive UROXATRAL 10 MG ORAL TABLET EXTENDED RELEASE 24 HOUR Take 1 tablet by mouth daily UROXATRAL 10 MG ORAL TABLET EXTENDED RELEASE 24 HOUR ALFUZOSIN HCL Inactive ACYCLOVIR 400 MG ORAL TABLET 1 pill three times daily x 5 days, for cold sore outbreak ACYCLOVIR 400 MG ORAL TABLET 912563 ACYCLOVIR Inactive TRUETEST TEST IN VITRO STRIP check sugars 4x/day TRUETEST TEST IN VITRO STRIP GLUCOSE BLOOD Inactive HUMALOG 100 UNIT/ML SUBCUTANEOUS SOLUTION Take 20 units with breakfast, 10u with lunch and suppetr. HUMALOG 100 UNIT/ML SUBCUTANEOUS SOLUTION INSULIN LISPRO (HUMAN) Inactive CYCLOBENZAPRINE HCL 10 MG ORAL TABLET 1 tablet by mouth three times daily, scheduled CYCLOBENZAPRINE HCL 10 MG ORAL TABLET 252383 CYCLOBENZAPRINE HCL Inactive ACCU-CHEK ROSA IN VITRO STRIP use strips with device to check blood sugars 3 times daily ACCU-CHEK ROSA IN VITRO STRIP GLUCOSE BLOOD Inactive ACCU-CHEK ROSA DEVICE Use device to check blood sugars ACCU-CHEK ROSA DEVICE BLOOD GLUCOSE MONITORING SUPPL Inactive FLUVOXAMINE MALEATE 100 MG ORAL TABLET Take 1/2 tab at noon 03/04 FLUVOXAMINE MALEATE 100 MG ORAL TABLET 657000 FLUVOXAMINE MALEATE Inactive FLUVOXAMINE MALEATE 100 MG ORAL TABLET Take one (1) tablet by mouth am, 1/2 at noon FLUVOXAMINE MALEATE 100 MG ORAL TABLET 663243 FLUVOXAMINE MALEATE Inactive BACTROBAN 2 % EXTERNAL CREAM Apply to affected area BID for up to 10 days BACTROBAN 2 % EXTERNAL CREAM 939365 MUPIROCIN CALCIUM Inactive NOVOFINE 32G X 6 MM use one four times per day NOVOFINE 32G X 6 MM INSULIN PEN NEEDLE Inactive TRAZODONE HCL 100 MG ORAL TABLET 1 tab by mouth for sleep TRAZODONE HCL 100 MG ORAL TABLET 224092 TRAZODONE HCL Inactive LOVAZA 1 GM ORAL CAPSULE 4 daily (for triglycerides) LOVAZA 1 GM ORAL CAPSULE 392514 [id number] ETHYL ESTERS Inactive METFORMIN HCL ER 500 [...] bladder TOLTERODINE TARTRATE 2 MG ORAL TABLET 677839 TOLTERODINE TARTRATE Inactive COLACE 100 MG ORAL CAPSULE 1 pill by mouth twice daily, for constipation 2014 COLACE 100 MG ORAL CAPSULE 6798198 DOCUSATE SODIUM Inactive LOMOTIL 2.5-0.025 MG ORAL TABLET take 1-2 tabs PO after each stool, no more than 8 in 24 hours LOMOTIL 2.5-0.025 MG ORAL TABLET 1754640 DIPHENOXYLATE-ATROPINE Inactive ZOFRAN 4 MG ORAL TABLET 1 po q4hr PRN Nausea ZOFRAN 4 MG ORAL TABLET 159754 ONDANSETRON HCL Inactive HYDROCODONE-ACETAMINOPHEN 5-325 MG ORAL TABLET 2 tabs by mouth three times daily for pain HYDROCODONE-ACETAMINOPHEN 5-325 MG ORAL TABLET 923675 HYDROCODONE-ACETAMINOPHEN Inactive ZOLPIDEM TARTRATE 10 MG ORAL TABLET take at bedtime ZOLPIDEM TARTRATE 10 MG ORAL TABLET 823604 ZOLPIDEM TARTRATE Inactive LISINOPRIL 20 MG ORAL TABLET 1 BID LISINOPRIL 20 MG ORAL TABLET 325105 LISINOPRIL Inactive TRAVATAN Z 0.004 % OPHTHALMIC SOLUTION 1 gtt each eye daily TRAVATAN Z 0.004 % OPHTHALMIC SOLUTION TRAVOPROST Inactive LATUDA 60 MG ORAL TABLET Take one by mouth daily LATUDA 60 MG ORAL TABLET LURASIDONE HCL Inactive FLUVOXAMINE MALEATE 50 MG ORAL TABLET 1 tab by mouth daily 04/01 FLUVOXAMINE MALEATE 50 MG ORAL TABLET 574226 FLUVOXAMINE MALEATE Inactive LEVEMIR FLEXTOUCH 100 UNIT/ML [...] 30G 3 a day TRUEPLUS LANCETS 30G [id number] LANCETS Inactive AMITIZA 24 MCG ORAL CAPSULE [...] noon FLUVOXAMINE MALEATE 100 MG ORAL TABLET 910552 FLUVOXAMINE MALEATE Inactive FLONASE ALLERGY RELIEF 50 MCG/ACT NASAL SUSPENSION One spray each nostril BID x 1 week then daily FLONASE ALLERGY RELIEF 50 MCG/ACT NASAL SUSPENSION 4048883 FLUTICASONE PROPIONATE Inactive IMODIUM A-D 2 MG ORAL TABLET 1 tab QID as needed IMODIUM A-D 2 MG ORAL TABLET 138748 LOPERAMIDE HCL Inactive MYLANTA GAS RELIEF MAXIMUM STR 125 MG ORAL CAPSULE 30cc every 4 hours prn MYLANTA GAS RELIEF MAXIMUM STR 125 MG ORAL CAPSULE SIMETHICONE Inactive TRUEPLUS LANCETS 30G 3x a day TRUEPLUS LANCETS 30G [id number] LANCETS Inactive TRUE METRIX BLOOD GLUCOSE TEST [...] headaches TRAZODONE HCL 100 MG ORAL TABLET 437065 TRAZODONE HCL Inactive TYLENOL 8 HOUR 650 [...] evening TAMSULOSIN HCL 0.4 MG ORAL CAPSULE 854614 TAMSULOSIN HCL Inactive [facility] MELATONIN 3 MG ORAL TABLET give 1 tab by mouth at HS [facility] MELATONIN 3 MG ORAL TABLET 765765 MELATONIN Inactive SEROQUEL 100 MG ORAL TABLET 1 tab daily SEROQUEL 100 MG ORAL TABLET 678203 QUETIAPINE FUMARATE Inactive CEFDINIR 300 MG ORAL CAPSULE by mouth twice a day CEFDINIR 300 MG ORAL CAPSULE 900209 CEFDINIR Inactive AZITHROMYCIN 500 MG INTRAVENOUS SOLUTION RECONSTITUTED 1 po q day AZITHROMYCIN 500 MG INTRAVENOUS SOLUTION RECONSTITUTED [id number] AZITHROMYCIN Inactive AMOXICILLIN 500 MG ORAL CAPSULE 2 po BID x 10 days AMOXICILLIN 500 MG ORAL CAPSULE 163250 AMOXICILLIN Inactive PENICILLIN V POTASSIUM 500 MG ORAL TABLET 1 pill by mouth three times daily PENICILLIN V POTASSIUM 500 MG ORAL TABLET 436239 PENICILLIN V POTASSIUM Inactive KEFLEX 500 MG ORAL CAPSULE 1 po BID x 7 days KEFLEX 500 MG ORAL CAPSULE 814932 CEPHALEXIN Inactive Immunizations Vaccine Administration Date Value [...] Fluvirin, Fluarix, Agriflu(>=18 yo)) Fluzone (>3 yrs.) [[id number]] Influenza, seasonal, injectable pneumococcal immunization administered Pneumovax [...] ... - Chemistry sodium, serum 135 mmol/L 297-393 2706/08/22 carbon dioxide, venous blood 28.4 mmol/L 21.0-32.0 [...] mg/g {creat} 0-29 cholesterol, serum 263 mg/dL 183-442 3816/08/22 triglyceride, serum, fasting 1312 mg/dL 30-200 HDL [...] 80 mg/L 0-19 Office Visit: TCM from skilled nursing - Lab PSA (prostate specific antigent), recommendation and action PSA ordered Encounters Code Encounter Date Provider Facility CPT-06084 [id number] Vst-Est Level III 11:00:25 CDT Shavonne Feliciano PA-C [facility] CPT-31236 Level 3 Est. Patient 09:12:14 BRAND ENGINEER Mima Erazo [facility] CPT-72828 Level 3 Est. Patient 16:52:51 CDT Vanessa Hickey MD [facility] CPT-53028 Level 3 Est. Patient 17:40:16 CDT Mima Erazo [facility] CPT-45345 Level 3 Est. Patient 14:34:52 CDT Vanessa Hickey MD [facility] CPT-07655 Level 3 Est. Patient 16:27:51 CDT Mima Erazo [facility] CPT-88678 Level 3 Est. Patient 14:39:00 BRAND ENGINEER Vanessa Hickey MD [facility] CPT-87241 Level 2 Est. Patient 18:43:34 CDT Mima Erazo [facility] CPT-76097 Level 3 Est. Patient 16:22:09 CDT Cherelle Avila [facility] CPT-88068 Level 4 Est. Patient 17:55:14 CDT Mima Erazo [facility] CPT-79516 Level 2 Est. Patient 17:13:21 CDT Alina Castaneda MD [facility]-92987 Level 3 Est. Patient 14:46:15 CDT Vanessa Hickey MD [facility]-07794 Level 3 Est. Patient 09:34:56 CDT Alina Castaneda MD [facility]-97451 Level 3 Est. Patient 21:40:19 CDT Mima Erazo [facility]-99760 Level 3 Est. Patient 09:26:40 CDT [facility]-38091 Level 3 Est. Patient 12:36:43 CDT Vanessa Hickey MD [facility]-11510 Level 3 Est. Patient 12:57:49 CDT Vanessa Hickey MD [facility]-85943 Level 3 Est. Patient 00:28:25 CDT Alina Castaneda MD [facility]-58270 Level 2 Est. Patient 12:52:14 CDT Alina Castaneda MD [facility]-24583 Level 3 Est. Patient 11:51:18 BRAND ENGINEER Alina Castaneda MD [facility]-94442 Level 3 Est. Patient 10:09:22 BRAND ENGINEER Alina Castaneda MD [facility]-21441 Level 3 Est. Patient 14:36:26 BRAND ENGINEER Marvel [facility]-63696 Level 3 Est. Patient 13:34:47 BRAND ENGINEER Alina Castaneda MD [facility]-91804 Level 3 Est. Patient 19:52:08 BRAND ENGINEER Alina Castaneda MD PhD [facility] [place]-09571 Level 3 Est. Patient 10:01:51 BRAND ENGINEER Marvel [facility]-45800 Level 3 Est. Patient 21:54:06 CDT Vanessa Hickey MD [facility]-65829 Level 3 Est. Patient 08:54:46 CDT Alina Castaneda MD PhD [facility]-76435 Level 3 Est. Patient 09:32:11 CDT Marvel [facility]-84569 Level 3 Est. Patient 12:02:49 CDT Alina Castaneda MD [facility]-44541 Level 3 Est. Patient 19:17:33 CDT Alina Castaneda MD [facility]-02693 Level 3 Est. Patient 13:19:10 CDT [facility]-89499 Level 3 Est. Patient 08:20:05 CDT Alina Castaneda MD [facility]-94076 Level 3 Est. Patient 15:17:18 CDT Alina Castaneda MD [facility]-50549 Level 3 Est. Patient 14:25:36 BRAND ENGINEER Marvel [facility]-21255 Level 3 Est. Patient 10:09:15 BRAND ENGINEER Marvel [facility]-85456 Level 3 Est. Patient 21:28:43 CDT Alina Castaneda MD [facility]-79179 Level 3 Est. Patient 15:20:11 CDT Marvel [facility]-61508 Level 4 Est. Patient 19:08:12 CDT Alina Castaneda MD [facility]-02248 Level 3 Est. Patient 15:06:39 CDT Marvel [facility]-63942 Level 4 Est. Patient 17:48:15 CDT Alina Castaneda MD [facility]-37230 Level 3 Est. Patient 14:53:49 CDT Alina Castaneda MD [facility]-03777 Level 3 Est. Patient 09:35:16 CDT Alina Castaneda MD [facility]-79239 Level 3 Est. Patient 12:23:22 CDT Alina Castaneda MD [facility]-88742 Level 3 Est. Patient 16:19:15 CDT Alina Castaneda MD [facility]-60032 Level 3 Est. Patient 21:39:56 BRAND ENGINEER Alina Castaneda MD [facility]-68344 Level 4 Est. Patient 14:12:56 BRAND ENGINEER Alina Castaneda MD [facility]-43185 Level 2 Est. Patient 15:34:57 BRAND ENGINEER Alina Castaneda MD [facility]-03184 Level 3 Est. Patient 12:17:04 BRAND ENGINEER Alina Castaneda MD [facility]-14987 Level 3 Est. Patient 09:18:18 BRAND ENGINEER Marvel [facility]-22981 Level 2 Est. Patient 21:50:24 CDT Alina Castaneda MD [facility]-25008 Level 3 Est. Patient 09:17:28 CDT Marvel [facility]-44255 Level 4 Est. Patient 18:54:02 CDT Alina Castaneda MD [facility] CPT-26898 Level 3 Est. Patient 10:47:10 CDT Alina Castaneda MD [facility] CPT-44902 Level 3 Est. Patient 09:22:20 CDT Marvel [facility] CPT-04508 Level 3 Est. Patient 16:39:43 CDT Brooksnivia [facility]stonest[facility] CPT-87041 Level 3 Est. Patient 16:05:16 CDT Alina Castaneda MD [facility]-60686 Level 3 Est. Patient 00:29:15 CDT Alina Castaneda MD [facility]-23940 Level 3 Est. Patient 10:49:22 BRAND ENGINEER Marvel [facility] CPT-58726 Level 3 Est. Patient 21:30:19 BRAND ENGINEER Alina Castaneda MD [facility] CPT-55827 Level 4 Est. Patient 17:04:11 BRAND ENGINEER Marvel [facility] CPT-98041 Level 3 Est. Patient 15:34:11 [facility]40[facility] Level 2 Est. Patient 12:51:58 BRAND ENGINEER Alina Castaneda MD [facility] CPT-73136 Level 3 Est. Patient 13:20:01 BRAND ENGINEER Alina Castaneda MD [facility] CPT-65675 Level 3 Est. Patient 09:23:35 CDT Alina Castaneda MD PhD [facility] Procedures Code Procedure Name Date Entry Date Standard Description CPT-TCMM Transitional Care Mgmt-Moderate 12:32:19 CDT CPT-60213 Level 2 Jail 09:01:11 CDT CPT-88543 HGBA1C - LAB USE ONLY 09:30:27 BRAND ENGINEER CPT-83999 BMP - LAB USE ONLY 09:30:27 BRAND ENGINEER CPT-65523 Venipuncture Draw Fee 09:30:26 BRAND ENGINEER CPT-TCMM Transitional Care Mgmt-Moderate 10:25:31 CDT CPT-03100 Bladder Scan 14:34:53 CDT CPT-08779 Bladder Scan 14:39:01 BRAND ENGINEER CPT-TCMM Transitional Care Mgmt-Moderate 10:30:19 BRAND ENGINEER CPT-58144 Bladder Scan 12:36:44 CDT CPT-32506 Bladder Scan 21:54:06 CDT CPT-G0008 Administration of Influenza Virus Vaccine 13:05:26 CDT CPT-05700 Fluzone Quadrivalent Intramuscular Suspension 0.5 ML 13: 05:26 CDT CPT-85804 Administration single or combination vaccine inc oral 11 :49:51 CDT CPT-22657 Pneumovax 11:49:51 CDT CPT-57826 Ribs unilateral 2V 12:37:22 BRAND ENGINEER CPT-22546 Chest 2V Frontal and Lat 17:15:26 CDT CPT-68741 Abx/Therapy Injection 18:54:02 CDT CPT-J0696 Rocephin 1000 mg (Ceftriaxone) 16:00:32 CDT CPT-99240 Chest 2V Frontal and Lat 15:26:45 CDT CPT-45272 Chest 2V Frontal and Lat 10:23:27 CDT CPT-26909 Venipuncture Draw Fee 10:11:00 CDT CPT-93955 Administration single or combination vaccine inc oral 11 :56:38 CDT CPT-13433 Influenza split virus > age 3 11:56:38 CDT CPT-21482 Venipuncture Draw Fee 08:49:54 BRAND ENGINEER CPT-07774 EKG Trac and Interp 17:54:19 BRAND ENGINEER
--- OUTSIDE RECORDS SUMMARY | 2018-07-02 12:43 | XMS REPORT | Clinical Summary ---
Author Author Admin, TERELL Organization [facility] Address Unknown Phone Unavailable Allergies, Adverse Reactions, [...] mellitus, type II 250.00 Active Marvel Thurstonari SALES AND IN HOME DELIVERY SPECIALIST Diabetes mellitus without mention of complication, type [...] MD PhD SINUSITIS, ACUTE ICD-461.9 Inactive Alina Catsaneda MD PhD DIABETIC HYPOGLYCEMIA, TYPE II ICD-250.80 [...] ORAL TABLET 1 tab daily QUETIAPINE FUMARATE 80522964123 No Longer Active Shavonne Feliciano PA-C Active SEROQUEL 25 MG ORAL TABLET Take two tabs by mouth in the morning, take 4 tablets at night QUETIAPINE FUMARATE 73748741434 Active Shavonne Feliciano PA-C Active [facility] MELATONIN 3 MG ORAL TABLET give 1 tab by mouth at HS MELATONIN 22418791309 No Longer Active Gabrielleadrienne Marquez MA Active NOVOLOG FLEXPEN 100 UNIT/ML SUBCUTANEOUS SOLUTION PEN-INJECTOR sliding scale INSULIN ASPART 51295342455 Active Gabrielle Littleananda NOEL Active METFORMIN HCL 1000 MG ORAL TABLET 1 tab by mouth BID METFORMIN HCL 96793081238 Active Gabrielle Littleananda NOEL Active [facility] MELATONIN 3 MG ORAL TABLET 1 tab nightly MELATONIN 96897974490 Active Gabrielle Littleananda BERT Active TAMSULOSIN HCL 0.4 MG ORAL CAPSULE give 2 capsules PO each evening TAMSULOSIN HCL 15599561163 No Longer Active Gabrielle Littleananda BERT Active VITAMIN D 2000 UNIT ORAL CAPSULE Take one by mouth daily CHOLECALCIFEROL 78511017200 No Longer Active Gabrielle Littleananda BERT Active LATUDA 40 MG ORAL TABLET 1.5 tab by mouth in the afternoon LURASIDONE HCL 47650802295 Active Gabrielle Littleananda BERT Active LEVEMIR 100 UNIT/ML SUBCUTANEOUS SOLUTION 10 u at bedtime INSULIN DETEMIR 47807759275 Active Gabrielle Littleananda BERT Active TAMSULOSIN HCL 0.4 MG ORAL CAPSULE 2 every night for urine flow TAMSULOSIN HCL 02380074249 Active Gabrielle Marquez MA Active DIVALPROEX SODIUM 125 MG ORAL TABLET DELAYED RELEASE 1 tab each morning 02/17 DIVALPROEX SODIUM 74855384405 Active Gabrielle Marquez MA Active D 1000 TABLET 2 tab by mouth BID CHOLECALCIFEROL TABS 46011832933 Active Gabrielle Marquez MA Active ALIGN 4 MG ORAL CAPSULE 1 tab at hs PROBIOTIC PRODUCT 33247734237 Active Gabrielle Marquez MA Active CLONAZEPAM 1 MG ORAL TABLET 1 pill by mouth two times daily CLONAZEPAM 84331737389 Active Gabrielle Marquez MA Active FENOFIBRATE 160 MG ORAL TABLET Take 1 tablet by mouth daily FENOFIBRATE 56727957473 Active Mya Ledezma MA Active OCEAN NASAL SPRAY SOLUTION 2 sprays in both nostrils every 8 hours as needed for dry mucous membranes SALINE SOLN 94863209306 Active Mason Loredo MD Active BETHANECHOL CHLORIDE 25 MG ORAL TABLET Take 1 tablet mouth four times a day BETHANECHOL CHLORIDE 36808720430 Active Mason Loredo MD Active [facility] LUBRICANT EYE DROPS 0.4-0.3 % OPHTHALMIC SOLUTION POLYETHYL GLYCOL-PROPYL GLYCOL 03088639016 No Longer Active Mason Loredo MD Active TYLENOL 8 HOUR 650 MG ORAL TABLET EXTENDED RELEASE 1 tab QID prn ACETAMINOPHEN 28873451280 No Longer Active Mason Loredo MD Active TOPAMAX 25 MG ORAL TABLET 1 tab BID PRN TOPIRAMATE 24315745758 Active Mason Loredo MD Active TIMOPTIC OCUDOSE 0.5 % OPHTHALMIC SOLUTION instill one drop into both eyes q12H TIMOLOL MALEATE 45815710365 Active Mason Loredo MD Active TRAZODONE HCL 100 MG ORAL TABLET 1 every night to prevent headaches TRAZODONE HCL 80357821780 No Longer Active Mason Loredo MD Active TRAVATAN Z 0.004 % OPHTHALMIC SOLUTION 1 drop each eye daily 2017 TRAVOPROST 34727132766 No Longer Active Mason Loredo MD Active LATUDA 60 MG ORAL TABLET 1 tab daily LURASIDONE HCL 17010313954 No Longer Active Mason Loredo MD Active MORPHINE SULFATE ER 30 MG ORAL TABLET EXTENDED RELEASE Take one capsule BID MORPHINE SULFATE 36190981833 No Longer Active Mason Loredo MD Active TRUE METRIX BLOOD GLUCOSE TEST IN VITRO STRIP Check blood sugars 3x/day. 2015 GLUCOSE BLOOD 57775161665 No Longer Active Mason Loredo MD Active TRUEPLUS LANCETS 30G 3x a day LANCETS 13658229514 No Longer Active Mason Loredo MD Active MYLANTA GAS RELIEF MAXIMUM STR 125 MG ORAL CAPSULE 30cc every 4 hours prn SIMETHICONE 20661292998 No Longer Active Mason Loredo MD Active IMODIUM A-D 2 MG ORAL TABLET 1 tab QID as needed LOPERAMIDE HCL 31999238416 No Longer Active Mason Loredo MD Active FLONASE ALLERGY RELIEF 50 MCG/ACT NASAL SUSPENSION One spray each nostril BID x 1 week then daily FLUTICASONE PROPIONATE 19381250921 No Longer Active Mason Loredo MD Active FLUVOXAMINE MALEATE 100 MG ORAL TABLET take one tab every AM et HS, and take 1 /2 tab at noon FLUVOXAMINE MALEATE 06494546710 No Longer Active Mason Loredo MD Active BD PEN NEEDLE MINI U/F 31G X 5 MM 4 a day INSULIN PEN NEEDLE 48335025278 No Longer Active Mason Loredo MD Active AMITIZA 24 MCG ORAL CAPSULE Take one capsule BID for constipation LUBIPROSTONE 43826636871 No Longer Active Mason Loredo MD Active TRUEPLUS LANCETS 30G 3 a day LANCETS 78989671890 No Longer Active Mason Loredo MD Active CORICIDIN HBP CONGESTION/COUGH 10-200 MG ORAL CAPSULE Take as directed on box as needed for cold/flu symptoms DEXTROMETHORPHAN- GUAIFENESIN 72364961616 No Longer Active Mason Loredo MD Active OMEGA-3 300 MG ORAL CAPSULE 4 caps by mouth daily OMEGA-3 FATTY ACIDS 63111243509 No Longer Active Mason Loredo MD Active HUMALOG KWIKPEN 100 UNIT/ML SUBCUTANEOUS SOLUTION PEN-INJECTOR sliding scale if needed INSULIN LISPRO (HUMAN) 58912284304 No Longer Active Mason Loredo MD Active TRUETEST TEST IN VITRO STRIP check blood sugars 3x/day GLUCOSE BLOOD 72583984151 No Longer Active Mason Loredo MD Active ALFUZOSIN HCL ER 10 MG ORAL TABLET EXTENDED RELEASE 24 HOUR 1 tablet daily ALFUZOSIN HCL 38051126105 No Longer Active Mason Loredo MD Active BD INSULIN SYRINGE 28G X 1/2" 1 ML 1 four times per day INSULIN SYRINGE-NEEDLE U-100 10756491722 No Longer Active Mason Loredo MD Active LEVEMIR FLEXTOUCH 100 UNIT/ML SUBCUTANEOUS SOLUTION PEN-INJECTOR 60 units SQ each evening, for diabetes INSULIN DETEMIR 03109542419 No Longer Active Mason Loredo MD Active LACTULOSE 20 GM/30ML ORAL SOLUTION give 30 Ml PO BID PRN LACTULOSE 93867665987 Active Mason Loredo MD Active COLACE 100 MG ORAL CAPSULE 1 tab BID PRN DOCUSATE SODIUM 91550997894 Active Mason Loredo MD Active LATANOPROST 0.005 % OPHTHALMIC SOLUTION instill 1 drop in both eyes at bed time LATANOPROST 16158280611 Active Mason Loredo MD Active AMARYL 2 MG ORAL TABLET give 2.5 tabs PO daily GLIMEPIRIDE 53634124268 Active Mason Loredo MD Active MIRALAX ORAL POWDER 17g by mouth q12h, for constipation POLYETHYLENE GLYCOL 3350 62095301524 Active Mason Loredo MD Active IBUPROFEN 400 MG ORAL TABLET 1 tab Q6H PRN IBUPROFEN 69394608907 Active Mason Loredo MD Active EFFEXOR XR 37.5 MG ORAL CAPSULE EXTENDED RELEASE 24 HOUR Take one by mouth daily VENLAFAXINE HCL 13904834707 Active Mima Erazo APRN Active FLUVOXAMINE MALEATE 50 MG ORAL TABLET 1 tab by mouth daily 04/01 FLUVOXAMINE MALEATE 68027319444 No Longer Active Mima Erazo APRN Active TRUE METRIX METER w/Device KIT Check blood sugars 3x/day BLOOD GLUCOSE MONITORING SUPPL 40615555387 Active Marvel Charles SALES AND IN HOME DELIVERY SPECIALIST Active LATUDA 60 MG ORAL TABLET Take one by mouth daily LURASIDONE HCL 02012443619 No Longer Active Mima Erazo APRN Active [facility] MILK OF MAGNESIA 400 MG/5ML ORAL SUSPENSION 30ml by mouth bid prn MAGNESIUM HYDROXIDE 11992402381 Active Mason Loredo MD Active TRAVATAN Z 0.004 % OPHTHALMIC SOLUTION 1 gtt each eye daily TRAVOPROST 16020606880 No Longer Active Mason Loredo MD Active LISINOPRIL 20 MG ORAL TABLET 1 BID LISINOPRIL 15575662158 No Longer Active Mason Loredo MD Active ZOLPIDEM TARTRATE 10 MG ORAL TABLET take at bedtime ZOLPIDEM TARTRATE 78276167407 No Longer Active Mason Loredo MD Active HYDROCODONE-ACETAMINOPHEN 5-325 MG ORAL TABLET 2 tabs by mouth three times daily for pain HYDROCODONE-ACETAMINOPHEN 65687112958 No Longer Active Mason Loredo MD Active ZOFRAN 4 MG ORAL TABLET 1 po q4hr PRN Nausea ONDANSETRON HCL 65087137842 No Longer Active Mason Loredo MD Active LOMOTIL 2.5-0.025 MG ORAL TABLET take 1-2 tabs PO after each stool, no more than 8 in 24 hours DIPHENOXYLATE-ATROPINE 53013699935 No Longer Active Mason Loredo MD Active COLACE 100 MG ORAL CAPSULE 1 pill by mouth twice daily, for constipation 2014 DOCUSATE SODIUM 73380910107 No Longer Active Mima Erazo APRN Active TOLTERODINE TARTRATE 2 MG ORAL TABLET 1 pill twice daily, for bladder TOLTERODINE TARTRATE 84331880971 No Longer Active Vanessa Hickey MD Active AMITIZA 24 MCG ORAL CAPSULE Take one capsule BID for constipation. LUBIPROSTONE 07710249223 No Longer Active Vanessa Hickey MD Active METOPROLOL SUCCINATE ER 100 MG ORAL TABLET EXTENDED RELEASE 24 HOUR 1 by mouth daily for blood pressure METOPROLOL SUCCINATE 20975379954 No Longer Active Grace Nascimento RMA Active METFORMIN HCL ER 500 MG ORAL TABLET EXTENDED RELEASE 24 HOUR Take three tablets by mouth everyday METFORMIN HCL 52191019406 No Longer Active Grace Nelsonb RMA Active LOVAZA 1 GM ORAL CAPSULE 4 daily (for triglycerides) [id number] ETHYL ESTERS 61166307394 No Longer Active Grace Azam RMA Active TRAZODONE HCL 100 MG ORAL TABLET 1 tab by mouth for sleep TRAZODONE HCL 05336830969 No Longer Active Grace Azam RMA Active NOVOFINE 32G X 6 MM use one four times per day INSULIN PEN NEEDLE 07832605691 No Longer Active Grace Azam RMA Active BACTROBAN 2 % EXTERNAL CREAM Apply to affected area BID for up to 10 days MUPIROCIN CALCIUM 69555762073 No Longer Active Grace Azam RMA Active KEFLEX 500 MG ORAL CAPSULE 1 po BID x 7 days CEPHALEXIN 94470720202 No Longer Active Cherelle Avila APRN Active FLUVOXAMINE MALEATE 100 MG ORAL TABLET Take one (1) tablet by mouth am, 1/2 at noon FLUVOXAMINE MALEATE 20605843569 No Longer Active Mima Erazo APRN Active FLUVOXAMINE MALEATE 100 MG ORAL TABLET Take 1/2 tab at noon 03/04 FLUVOXAMINE MALEATE 87087078990 No Longer Active Cherelle Avila APRN Active ACCU-CHEK ROSA DEVICE Use device to check blood sugars BLOOD GLUCOSE MONITORING SUPPL 57650356280 No Longer Active Marvel Araceli MARROQUIN Active ACCU-CHEK ROSA IN VITRO STRIP use strips with device to check blood sugars 3 times daily GLUCOSE BLOOD 87922868492 No Longer Active Marvel Mackenzieajayari SALES AND IN HOME DELIVERY SPECIALIST Active VERAPAMIL HCL ER 180 MG ORAL TABLET EXTENDED RELEASE 1 pill by mouth twice daily, for migraine prevention VERAPAMIL HCL 22852688670 Active Mima Erazo APRN Active CYCLOBENZAPRINE HCL 10 MG ORAL TABLET 1 tablet by mouth three times daily, scheduled CYCLOBENZAPRINE HCL 82659169215 No Longer Active Alina Castaneda MD PhD Active HUMALOG 100 UNIT/ML SUBCUTANEOUS SOLUTION Take 20 units with breakfast, 10u with lunch and suppetr. INSULIN LISPRO (HUMAN) 45083964242 No Longer Active Alina Castaneda MD PhD Active TRUETEST TEST IN VITRO STRIP check sugars 4x/day GLUCOSE BLOOD 06961902380 No Longer Active Alina Castaneda MD PhD Active MORPHINE SULFATE 30 MG ORAL TABLET 1 pill by mouth twice daily, for pain 2013 MORPHINE SULFATE 80291664000 No Longer Active Mason Loredo MD Active ACYCLOVIR 400 MG ORAL TABLET 1 pill three times daily x 5 days, for cold sore outbreak ACYCLOVIR 73396398760 No Longer Active Alina Castaneda MD PhD Active PENICILLIN V POTASSIUM 500 MG ORAL TABLET 1 pill by mouth three times daily PENICILLIN V POTASSIUM 09368012444 No Longer Active Alina Castaneda MD PhD Active UROXATRAL 10 MG ORAL TABLET EXTENDED RELEASE 24 HOUR Take 1 tablet by mouth daily ALFUZOSIN HCL 08976457689 No Longer Active Alina Castaneda MD PhD Active THIOTHIXENE 5 MG ORAL CAPSULE by mouth twice a day THIOTHIXENE 38403705700 No Longer Active Alina Castaneda MD PhD Active ZYPREXA 7.5 MG ORAL TABLET 1 at HS OLANZAPINE 67997749267 No Longer Active Alina Castaneda MD PhD Active DETROL LA 4 MG ORAL CAPSULE EXTENDED RELEASE 24 HOUR Take 1 tablet by mouth daily TOLTERODINE TARTRATE 23149850597 No Longer Active Alina Castaneda MD PhD Active TERESE CONTOUR TEST IN VITRO STRIP monitor blood sugars 3x/day GLUCOSE BLOOD 91372203832 No Longer Active Alina Castaneda MD PhD Active EQL TRUETEST TEST IN VITRO STRIP Test blood sugar TID GLUCOSE BLOOD 47227400275 No Longer Active Alina Castaneda MD PhD Active FLUTICASONE PROPIONATE 50 MCG/ACT NASAL SUSPENSION 2 sprays each nostril qDay x 30 days FLUTICASONE PROPIONATE 41913704890 No Longer Active Alina Castaneda MD PhD Active IBUPROFEN 200 MG ORAL TABLET 1 Q 6 hr. PRN IBUPROFEN 08628660892 No Longer Active Alina Castaneda MD PhD Active NIACIN ER 500 MG ORAL TABLET EXTENDED RELEASE 4 qHS (for triglycerides) 01/13 NIACIN 89472377917 No Longer Active Alina Castaneda MD PhD Active SAPHRIS 5 MG SUBLINGUAL TABLET SUBLINGUAL by mouth twice a day ASENAPINE MALEATE 77837228992 No Longer Active Maljohn MARROQUIN Active ACETAMINOPHEN 500 MG ORAL TABLET 2 Q 6 hr. PRN ACETAMINOPHEN 83515601968 No Longer Active Malihnivia Ziglari SALES AND IN HOME DELIVERY SPECIALIST Active ORPHENADRINE CITRATE ER 100 MG ORAL TABLET EXTENDED RELEASE 12 HOUR 1 every 12 hr. as needed ORPHENADRINE CITRATE 37148444894 No Longer Active Alina Castaneda MD PhD Active NIACIN ER 500 MG ORAL TABLET EXTENDED RELEASE 2 qHS NIACIN 53151279759 No Longer Active Alina Castaneda MD PhD Active AMOXICILLIN 500 MG ORAL CAPSULE 2 po BID x 10 days AMOXICILLIN 41221617733 No Longer Active Alina Castaneda MD PhD Active HYDROCODONE-ACETAMINOPHEN 7.5-325 MG ORAL TABLET 1 four times a day as needed for pain HYDROCODONE-ACETAMINOPHEN 55352770684 No Longer Active Alina Castaneda MD PhD Active DOXEPIN HCL 10 MG ORAL CAPSULE Take 1 tablet by mouth daily DOXEPIN HCL 25086473831 No Longer Active Salina Han A Active NAVANE 10 MG CAPS 1/2 tablet twice a day THIOTHIXENE No Longer Active Salina ROBBINSA Active CYCLOBENZAPRINE HCL 10 MG ORAL TABLET 1/2 tablet by mouth every 8 hours as needed for muscle spasms CYCLOBENZAPRINE HCL 52313411369 No Longer Active Alina Castaneda MD PhD Active BACTROBAN 2 % EXTERNAL CREAM apply to ear and nose twice daily MUPIROCIN CALCIUM 21084923382 No Longer Active Alina Castaneda MD PhD Active HYDROCODONE-ACETAMINOPHEN 5-325 MG ORAL TABLET take one tablet by mouth every four hours as needed for pain HYDROCODONE-ACETAMINOPHEN 15610038388 No Longer Active Alina Castaneda MD PhD Active ZYPREXA 5 MG ORAL TABLET take one tablet by mouth every evening OLANZAPINE 23809826839 No Longer Active Alina Castaneda MD PhD Active ALBUTEROL SULFATE (2.5 MG/3ML) 0.083% INHALATION NEBULIZATION SOLUTION one vial per nebulizer TID and PRN cough/soa ALBUTEROL SULFATE 15501510015 No Longer Active Alina Castaneda MD PhD Active GUAIFENESIN ER 600 MG ORAL TABLET EXTENDED RELEASE 12 HOUR 1 tablet by mouth twice daily if needed for cough GUAIFENESIN 13470988113 No Longer Active Marvel MARROQUIN Active AZITHROMYCIN 500 MG INTRAVENOUS SOLUTION RECONSTITUTED 1 po q day AZITHROMYCIN 99081118737 No Longer Active Alina Castaneda MD PhD Active PROMETHAZINE-CODEINE 6.25-10 MG/5ML ORAL SYRUP 1 tsp po q 6 hours prn cough PROMETHAZINE-CODEINE 18575313047 No Longer Active Alina Castaneda MD PhD Active CEFDINIR 300 MG ORAL CAPSULE by mouth twice a day CEFDINIR 40744454778 No Longer Active Alina Castaneda MD PhD Active METFORMIN HCL ER 500 MG ORAL TABLET EXTENDED RELEASE 24 HOUR Take 3 tablets by mouth everyday METFORMIN HCL 88468822032 No Longer Active Alina Castaneda MD PhD Active LEVEMIR 100 UNIT/ML SUBCUTANEOUS SOLUTION 90 units SQ qHS INSULIN DETEMIR 20665691023 No Longer Active Marvel MARROQUIN Active TOPROL XL 100 MG ORAL TABLET EXTENDED RELEASE 24 HOUR 1 @ HS METOPROLOL SUCCINATE 37272129731 No Longer Active Mravel MARROQUIN Active ALLOPURINOL 300 MG ORAL TABLET Take one by mouth daily ALLOPURINOL 95420789669 Active Mima Erazo WOOL HAT FINISHER Active ZYPREXA 10 MG ORAL TABLET Take one by mouth daily OLANZAPINE 11005773732 No Longer Active Alina Castanead MD PhD Active NOVOLOG 100 UNIT/ML SUBCUTANEOUS SOLUTION 40 units with every meal INSULIN ASPART 24808992914 No Longer Active Alina Castaneda MD PhD Active VERAPAMIL HCL ER 120 MG ORAL TABLET EXTENDED RELEASE 1 qPM 09/08 VERAPAMIL HCL 08640304842 No Longer Active Salina ROJAS Active ZYPREXA 15 MG ORAL TABLET Take 1 tablet by mouth daily OLANZAPINE 72876818246 No Longer Active Marvel MARROQUIN Active ALBUTEROL SULFATE (2.5 MG/3ML) 0.083% INHALATION NEBULIZATION SOLUTION 1 neb tid and prn cough ALBUTEROL SULFATE 76137657755 No Longer Active Alina Castaneda MD PhD Active LANTUS 100 UNIT/ML SUBCUTANEOUS SOLUTION 60 units sq q hs INSULIN GLARGINE 93859557941 No Longer Active CRYSTAL Suarez Active ALBUTEROL SULFATE (2.5 MG/3ML) 0.083% INHALATION NEBULIZATION SOLUTION 1 neb tid and prn cough ALBUTEROL SULFATE (2.5 MG/3ML) 0.083% INHALATION NEBULIZATION SOLUTION 726493 ALBUTEROL SULFATE Inactive ZYPREXA 15 MG ORAL TABLET Take 1 tablet by mouth daily ZYPREXA 15 MG ORAL TABLET 928042 OLANZAPINE Inactive VERAPAMIL HCL ER 120 MG ORAL TABLET EXTENDED RELEASE 1 qPM 09/08 VERAPAMIL HCL ER 120 MG ORAL TABLET EXTENDED RELEASE VERAPAMIL HCL Inactive ZYPREXA 10 MG ORAL TABLET Take one by mouth daily ZYPREXA 10 MG ORAL TABLET 647835 OLANZAPINE Inactive TOPROL XL 100 MG ORAL TABLET EXTENDED RELEASE 24 HOUR 1 @ HS TOPROL XL 100 MG ORAL TABLET EXTENDED RELEASE 24 HOUR METOPROLOL SUCCINATE Inactive LEVEMIR 100 UNIT/ML SUBCUTANEOUS SOLUTION 90 units SQ qHS LEVEMIR 100 UNIT/ML SUBCUTANEOUS SOLUTION INSULIN DETEMIR Inactive PROMETHAZINE-CODEINE 6.25-10 MG/5ML ORAL SYRUP 1 tsp po q 6 hours prn cough PROMETHAZINE-CODEINE 6.25-10 MG/5ML ORAL SYRUP 046267 PROMETHAZINE-CODEINE Inactive GUAIFENESIN ER 600 MG ORAL TABLET EXTENDED RELEASE 12 HOUR 1 tablet by mouth twice daily if needed for cough GUAIFENESIN ER 600 MG ORAL TABLET EXTENDED RELEASE 12 HOUR GUAIFENESIN Inactive ALBUTEROL SULFATE (2.5 MG/3ML) 0.083% INHALATION NEBULIZATION SOLUTION one vial per nebulizer TID and PRN cough/soa ALBUTEROL SULFATE (2.5 MG/3ML) 0.083% INHALATION NEBULIZATION SOLUTION 589353 ALBUTEROL SULFATE Inactive ZYPREXA 5 MG ORAL TABLET take one tablet by mouth every evening ZYPREXA 5 MG ORAL TABLET 609632 OLANZAPINE Inactive HYDROCODONE-ACETAMINOPHEN 5-325 MG ORAL TABLET take one tablet by mouth every four hours as needed for pain HYDROCODONE-ACETAMINOPHEN 5-325 MG ORAL TABLET 459275 HYDROCODONE-ACETAMINOPHEN Inactive BACTROBAN 2 % EXTERNAL CREAM apply to ear and nose twice daily BACTROBAN 2 % EXTERNAL CREAM 084399 MUPIROCIN CALCIUM Inactive CYCLOBENZAPRINE HCL 10 MG ORAL TABLET 1/2 tablet by mouth every 8 hours as needed for muscle spasms CYCLOBENZAPRINE HCL 10 MG ORAL TABLET 073174 CYCLOBENZAPRINE HCL Inactive NAVANE 10 MG CAPS 1/2 tablet twice a day NAVANE 10 MG CAPS THIOTHIXENE Inactive DOXEPIN HCL 10 MG ORAL CAPSULE Take 1 tablet by mouth daily DOXEPIN HCL 10 MG ORAL CAPSULE 7844710 DOXEPIN HCL Inactive HYDROCODONE-ACETAMINOPHEN 7.5-325 MG ORAL TABLET 1 four times a day as needed for pain HYDROCODONE-ACETAMINOPHEN 7.5-325 MG ORAL TABLET 018368 HYDROCODONE-ACETAMINOPHEN Inactive NIACIN ER 500 MG ORAL [...] hr. PRN ACETAMINOPHEN 500 MG ORAL TABLET 895616 ACETAMINOPHEN Inactive SAPHRIS 5 MG SUBLINGUAL TABLET SUBLINGUAL by mouth twice a day SAPHRIS 5 MG SUBLINGUAL TABLET SUBLINGUAL ASENAPINE MALEATE Inactive NIACIN ER 500 MG ORAL TABLET EXTENDED RELEASE 4 qHS (for triglycerides) 01/13 NIACIN ER 500 MG ORAL TABLET EXTENDED RELEASE NIACIN Inactive IBUPROFEN 200 MG ORAL TABLET 1 Q 6 hr. PRN IBUPROFEN 200 MG ORAL TABLET 898492 IBUPROFEN Inactive FLUTICASONE PROPIONATE 50 MCG/ACT NASAL SUSPENSION 2 sprays each nostril qDay x 30 days FLUTICASONE PROPIONATE 50 MCG/ACT NASAL SUSPENSION 7666717 FLUTICASONE PROPIONATE Inactive EQL TRUETEST TEST IN [...] at HS ZYPREXA 7.5 MG ORAL TABLET 796469 OLANZAPINE Inactive THIOTHIXENE 5 MG ORAL CAPSULE by mouth twice a day THIOTHIXENE 5 MG ORAL CAPSULE 396902 THIOTHIXENE Inactive UROXATRAL 10 MG ORAL TABLET EXTENDED RELEASE 24 HOUR Take 1 tablet by mouth daily UROXATRAL 10 MG ORAL TABLET EXTENDED RELEASE 24 HOUR ALFUZOSIN HCL Inactive ACYCLOVIR 400 MG ORAL TABLET 1 pill three times daily x 5 days, for cold sore outbreak ACYCLOVIR 400 MG ORAL TABLET 096526 ACYCLOVIR Inactive TRUETEST TEST IN VITRO STRIP check sugars 4x/day TRUETEST TEST IN VITRO STRIP GLUCOSE BLOOD Inactive HUMALOG 100 UNIT/ML SUBCUTANEOUS SOLUTION Take 20 units with breakfast, 10u with lunch and suppetr. HUMALOG 100 UNIT/ML SUBCUTANEOUS SOLUTION INSULIN LISPRO (HUMAN) Inactive CYCLOBENZAPRINE HCL 10 MG ORAL TABLET 1 tablet by mouth three times daily, scheduled CYCLOBENZAPRINE HCL 10 MG ORAL TABLET 159581 CYCLOBENZAPRINE HCL Inactive ACCU-CHEK ROSA IN VITRO STRIP use strips with device to check blood sugars 3 times daily ACCU-CHEK ROSA IN VITRO STRIP GLUCOSE BLOOD Inactive ACCU-CHEK ROSA DEVICE Use device to check blood sugars ACCU-CHEK ROSA DEVICE BLOOD GLUCOSE MONITORING SUPPL Inactive FLUVOXAMINE MALEATE 100 MG ORAL TABLET Take 1/2 tab at noon 03/04 FLUVOXAMINE MALEATE 100 MG ORAL TABLET 652836 FLUVOXAMINE MALEATE Inactive FLUVOXAMINE MALEATE 100 MG ORAL TABLET Take one (1) tablet by mouth am, 1/2 at noon FLUVOXAMINE MALEATE 100 MG ORAL TABLET 171408 FLUVOXAMINE MALEATE Inactive BACTROBAN 2 % EXTERNAL CREAM Apply to affected area BID for up to 10 days BACTROBAN 2 % EXTERNAL CREAM 134753 MUPIROCIN CALCIUM Inactive NOVOFINE 32G X 6 MM use one four times per day NOVOFINE 32G X 6 MM INSULIN PEN NEEDLE Inactive TRAZODONE HCL 100 MG ORAL TABLET 1 tab by mouth for sleep TRAZODONE HCL 100 MG ORAL TABLET 954630 TRAZODONE HCL Inactive LOVAZA 1 GM ORAL CAPSULE 4 daily (for triglycerides) LOVAZA 1 GM ORAL CAPSULE 046375 [id number] ETHYL ESTERS Inactive METFORMIN HCL ER 500 [...] bladder TOLTERODINE TARTRATE 2 MG ORAL TABLET 166209 TOLTERODINE TARTRATE Inactive COLACE 100 MG ORAL CAPSULE 1 pill by mouth twice daily, for constipation 2014 COLACE 100 MG ORAL CAPSULE 1116854 DOCUSATE SODIUM Inactive LOMOTIL 2.5-0.025 MG ORAL TABLET take 1-2 tabs PO after each stool, no more than 8 in 24 hours LOMOTIL 2.5-0.025 MG ORAL TABLET 6586206 DIPHENOXYLATE-ATROPINE Inactive ZOFRAN 4 MG ORAL TABLET 1 po q4hr PRN Nausea ZOFRAN 4 MG ORAL TABLET 450983 ONDANSETRON HCL Inactive HYDROCODONE-ACETAMINOPHEN 5-325 MG ORAL TABLET 2 tabs by mouth three times daily for pain HYDROCODONE-ACETAMINOPHEN 5-325 MG ORAL TABLET 866096 HYDROCODONE-ACETAMINOPHEN Inactive ZOLPIDEM TARTRATE 10 MG ORAL TABLET take at bedtime ZOLPIDEM TARTRATE 10 MG ORAL TABLET 417405 ZOLPIDEM TARTRATE Inactive LISINOPRIL 20 MG ORAL TABLET 1 BID LISINOPRIL 20 MG ORAL TABLET 636955 LISINOPRIL Inactive TRAVATAN Z 0.004 % OPHTHALMIC SOLUTION 1 gtt each eye daily TRAVATAN Z 0.004 % OPHTHALMIC SOLUTION TRAVOPROST Inactive LATUDA 60 MG ORAL TABLET Take one by mouth daily LATUDA 60 MG ORAL TABLET LURASIDONE HCL Inactive FLUVOXAMINE MALEATE 50 MG ORAL TABLET 1 tab by mouth daily 04/01 FLUVOXAMINE MALEATE 50 MG ORAL TABLET 914271 FLUVOXAMINE MALEATE Inactive LEVEMIR FLEXTOUCH 100 UNIT/ML [...] 30G 3 a day TRUEPLUS LANCETS 30G [id number] LANCETS Inactive AMITIZA 24 MCG ORAL CAPSULE [...] noon FLUVOXAMINE MALEATE 100 MG ORAL TABLET 931729 FLUVOXAMINE MALEATE Inactive FLONASE ALLERGY RELIEF 50 MCG/ACT NASAL SUSPENSION One spray each nostril BID x 1 week then daily FLONASE ALLERGY RELIEF 50 MCG/ACT NASAL SUSPENSION 2991331 FLUTICASONE PROPIONATE Inactive IMODIUM A-D 2 MG ORAL TABLET 1 tab QID as needed IMODIUM A-D 2 MG ORAL TABLET 577632 LOPERAMIDE HCL Inactive MYLANTA GAS RELIEF MAXIMUM STR 125 MG ORAL CAPSULE 30cc every 4 hours prn MYLANTA GAS RELIEF MAXIMUM STR 125 MG ORAL CAPSULE SIMETHICONE Inactive TRUEPLUS LANCETS 30G 3x a day TRUEPLUS LANCETS 30G 59230806522 LANCETS Inactive TRUE METRIX BLOOD GLUCOSE TEST [...] headaches TRAZODONE HCL 100 MG ORAL TABLET 354308 TRAZODONE HCL Inactive TYLENOL 8 HOUR 650 [...] evening TAMSULOSIN HCL 0.4 MG ORAL CAPSULE 029131 TAMSULOSIN HCL Inactive [facility] MELATONIN 3 MG ORAL TABLET give 1 tab by mouth at HS [facility] MELATONIN 3 MG ORAL TABLET 788594 MELATONIN Inactive SEROQUEL 100 MG ORAL TABLET 1 tab daily SEROQUEL 100 MG ORAL TABLET 940632 QUETIAPINE FUMARATE Inactive CEFDINIR 300 MG ORAL CAPSULE by mouth twice a day CEFDINIR 300 MG ORAL CAPSULE 539263 CEFDINIR Inactive AZITHROMYCIN 500 MG INTRAVENOUS SOLUTION RECONSTITUTED 1 po q day AZITHROMYCIN 500 MG INTRAVENOUS SOLUTION RECONSTITUTED [id number] AZITHROMYCIN Inactive AMOXICILLIN 500 MG ORAL CAPSULE 2 po BID x 10 days AMOXICILLIN 500 MG ORAL CAPSULE 378472 AMOXICILLIN Inactive PENICILLIN V POTASSIUM 500 MG ORAL TABLET 1 pill by mouth three times daily PENICILLIN V POTASSIUM 500 MG ORAL TABLET 719701 PENICILLIN V POTASSIUM Inactive KEFLEX 500 MG ORAL CAPSULE 1 po BID x 7 days KEFLEX 500 MG ORAL CAPSULE 325163 CEPHALEXIN Inactive Immunizations Vaccine Administration Date Value [...] Fluvirin, Fluarix, Agriflu(>=18 yo)) Fluzone (>3 yrs.) [[id number]] Influenza, seasonal, injectable pneumococcal immunization administered Pneumovax [...] ... - Chemistry sodium, serum 135 mmol/L [phone]/08/22 carbon dioxide, venous blood 28.4 mmol/L 21.0-32.0 [...] mg/g {creat} 0-29 cholesterol, serum 263 mg/dL [phone]/08/22 triglyceride, serum, fasting 1312 mg/dL 30-200 HDL [...] ordered Encounters Code Encounter Date Provider Facility CPT-72826 [id number] Vst-Est Level III 11:00:25 CDT Shavonne Feliciano PA-C [facility] CPT-62782 Level 3 Est. Patient 09:12:14 COMMUNITY ORGANIZER [facility] CPT-53446 Level 3 Est. Patient 16:52:51 CDT Vanessa Hickey MD [facility] CPT-60469 Level 3 Est. Patient 17:40:16 CDT [facility] CPT-23828 Level 3 Est. Patient 14:34:52 CDT Vanessa Hickey MD [facility] CPT-96186 Level 3 Est. Patient 16:27:51 CDT Mima Erazo [facility] CPT-01161 Level 3 Est. Patient 14:39:00 COMMUNITY ORGANIZER Vanessa Hickey MD [facility] CPT-75465 Level 2 Est. Patient 18:43:34 CDT Mima Erazo [facility] CPT-24104 Level 3 Est. Patient 16:22:09 CDT Cherelle Avila [facility] CPT-06042 Level 4 Est. Patient 17:55:14 CDT Mima Erazo [facility] CPT-84228 Level 2 Est. Patient 17:13:21 CDT Alina Castaneda MD [facility]-15270 Level 3 Est. Patient 14:46:15 CDT Vanessa Hickey MD [facility]-10714 Level 3 Est. Patient 09:34:56 CDT Alina Castaneda MD [facility]-21287 Level 3 Est. Patient 21:40:19 CDT Mima Erazo [facility]-04497 Level 3 Est. Patient 09:26:[address] [facility]-42148 Level 3 Est. Patient 12:36:43 CDT Vanessa Hickey MD [facility]-48046 Level 3 Est. Patient 12:57:49 CDT Vanessa Hickey MD [facility]-67665 Level 3 Est. Patient 00:28:25 CDT Alina Castaneda MD [facility]-57878 Level 2 Est. Patient 12:52:14 CDT Alina Castaneda MD [facility]-94525 Level 3 Est. Patient 11:51:18 COMMUNITY ORGANIZER Alina Castaneda MD [facility]-41287 Level 3 Est. Patient 10:09:22 COMMUNITY ORGANIZER Alina Castaneda MD [facility]-38961 Level 3 Est. Patient 14:36:26 COMMUNITY ORGANIZER Marvel Charles [facility]-52308 Level 3 Est. Patient 13:34:47 COMMUNITY ORGANIZER Alina Castaneda MD [facility]-82003 Level 3 Est. Patient 19:52:08 COMMUNITY ORGANIZER Alina Castaneda MD PhD [facility]-72015 Level 3 Est. Patient 10:01:51 COMMUNITY ORGANIZER Marvel Araceli [facility]-86824 Level 3 Est. Patient 21:54:06 CDT Vanessa Hickey MD [facility]-91257 Level 3 Est. Patient 08:54:46 CDT Alina Castaneda MD PhD [facility]-41960 Level 3 Est. Patient 09:32:11 CDT Marvel [facility]-37603 Level 3 Est. Patient 12:02:49 CDT Alina Castaneda MD [facility]-53025 Level 3 Est. Patient 19:17:33 CDT Alina Castaneda MD [facility]-96046 Level 3 Est. Patient 13:19:10 CDT Brooksjohn [facility]-45723 Level 3 Est. Patient 08:20:05 CDT Alina Castaneda MD [facility]-76290 Level 3 Est. Patient 15:17:18 CDT Alina Castaneda MD [facility]-59991 Level 3 Est. Patient 14:25:36 COMMUNITY ORGANIZER Marvel Araceli [facility]-45094 Level 3 Est. Patient 10:09:15 COMMUNITY ORGANIZER Marvel Araceli [facility]-54350 Level 3 Est. Patient 21:28:43 CDT Alina Castaneda MD [facility]-30908 Level 3 Est. Patient 15:20:11 CDT Marvel [facility]-08598 Level 4 Est. Patient 19:08:12 CDT Alina Castaneda MD [facility]-09774 Level 3 Est. Patient 15:06:39 CDT Marvel [facility]-15467 Level 4 Est. Patient 17:48:15 CDT Alina Castaneda MD [facility]-63139 Level 3 Est. Patient 14:53:49 CDT Alina Castaneda MD [facility]-52278 Level 3 Est. Patient 09:35:16 CDT Alina Castaneda MD [facility]-01296 Level 3 Est. Patient 12:23:22 CDT Alina Castaneda MD [facility]-67298 Level 3 Est. Patient 16:19:15 CDT Alina Castaneda MD [facility]-19178 Level 3 Est. Patient 21:39:56 COMMUNITY ORGANIZER Alina Castaneda MD [facility]-53707 Level 4 Est. Patient 14:12:56 COMMUNITY ORGANIZER Alina Castaneda MD [facility]-12051 Level 2 Est. Patient 15:34:57 COMMUNITY ORGANIZER Alina Castaneda MD [facility]-24377 Level 3 Est. Patient 12:17:04 COMMUNITY ORGANIZER Alina Castaneda MD [facility]-67253 Level 3 Est. Patient 09:18:18 COMMUNITY ORGANIZER Marvel Charles [facility]-93566 Level 2 Est. Patient 21:50:24 CDT Alina Castaneda MD [facility]-44949 Level 3 Est. Patient 09:17:28 CDT Marvel [facility]-75428 Level 4 Est. Patient 18:54:02 CDT Alina Castaneda MD [facility] CPT-86235 Level 3 Est. Patient 10:47:10 CDT Alina Castaneda MD [facility] CPT-57360 Level 3 Est. Patient 09:22:20 CDT Marvel [facility] CPT-04713 Level 3 Est. Patient 16:39:43 CDT Brooksnivia [facility] CPT-22206 Level 3 Est. Patient 16:05:16 CDT Alina Castaneda MD [facility]-62904 Level 3 Est. Patient 00:29:15 CDT Alina Castaneda MD [facility]-88055 Level 3 Est. Patient 10:49:22 COMMUNITY ORGANIZER Marvel [facility] CPT-34415 Level 3 Est. Patient 21:30:19 COMMUNITY ORGANIZER Alina Castaneda MD [facility] CPT-17733 Level 4 Est. Patient 17:04:11 COMMUNITY ORGANIZER Marvel [facility] CPT-39415 Level 3 Est. Patient 15:34:11 [facility]ITY [facility]67 Level 2 Est. Patient 12:51:58 COMMUNITY ORGANIZER Alina Castaneda MD [facility] CPT-85225 Level 3 Est. Patient 13:20:01 COMMUNITY ORGANIZER Alina Castaneda MD [facility] CPT-64855 Level 3 Est. Patient 09:23:35 CDT Alina Castaneda MD PhD [facility] Procedures Code Procedure Name Date Entry Date Standard Description CPT-TCMM Transitional Care Mgmt-Moderate 12:32:19 CDT CPT-97115 Level 2 Senior Care 09:01:11 CDT CPT-97745 HGBA1C - LAB USE ONLY 09:30:27 COMMUNITY ORGANIZER CPT-23603 BMP - LAB USE ONLY 09:30:27 COMMUNITY ORGANIZER CPT-89209 Venipuncture Draw Fee 09:30:26 COMMUNITY ORGANIZER CPT-TCMM Transitional Care Mgmt-Moderate 10:25:31 CDT CPT-16802 Bladder Scan 14:34:53 CDT CPT-18451 Bladder Scan 14:39:01 COMMUNITY ORGANIZER CPT-TCMM Transitional Care Mgmt-Moderate 10:30:19 COMMUNITY ORGANIZER CPT-62063 Bladder Scan 12:36:44 CDT CPT-17780 Bladder Scan 21:54:06 CDT CPT-G0008 Administration of Influenza Virus Vaccine 13:05:26 CDT CPT-08535 Fluzone Quadrivalent Intramuscular Suspension 0.5 ML 13: 05:26 CDT CPT-01707 Administration single or combination vaccine inc oral 11 :49:51 CDT CPT-05543 Pneumovax 11:49:51 CDT CPT-77003 Ribs unilateral 2V 12:37:22 COMMUNITY ORGANIZER CPT-40259 Chest 2V Frontal and Lat 17:15:26 CDT CPT-51401 Abx/Therapy Injection 18:54:02 CDT CPT-J0696 Rocephin 1000 mg (Ceftriaxone) 16:00:32 CDT CPT-55643 Chest 2V Frontal and Lat 15:26:45 CDT CPT-34594 Chest 2V Frontal and Lat 10:23:27 CDT CPT-04006 Venipuncture Draw Fee 10:11:00 CDT CPT-19375 Administration single or combination vaccine inc oral 11 :56:38 CDT CPT-76485 Influenza split virus > age 3 11:56:38 CDT CPT-17967 Venipuncture Draw Fee 08:49:54 COMMUNITY ORGANIZER CPT-07940 EKG Trac and Interp 17:54:19 COMMUNITY ORGANIZER
--- OUTSIDE RECORDS SUMMARY | 2018-07-02 12:45 | XMS REPORT | Clinical Summary ---
Author Author Admin, TERELL Organization [facility] [employer] Address Unknown Phone Unavailable Allergies, Adverse Reactions, [...] G E R D 530.81 Active Alina Casatneda MD PhD Esophageal reflux HYPERLIPIDEMIA 272.4 Refinement [...] mellitus, type II 250.00 Active Marvel Thurstonari [employer] Diabetes mellitus without mention of complication, [...] Active Shavonne Feliciano PA-C Loss of weight DIABETES, TYPE 2 ICD-250.00 Inactive Alina Castaneda [...] ACUTE ICD-466.0 Inactive Alina Castaneda MD PhD FH STROKE ICD-V17.1 Inactive Marvel MENDOZAP CHEST PAIN ICD-786.50 Inactive Alina Castaneda MD PhD SKIN LESION ICD-709.9 Inactive Alina Castaneda MD PhD PNEUMONIA, ORGANISM UNSPECIFIED ICD-486 Inactive Alina Castaneda MD PhD DIABETIC HYPOGLYCEMIA, TYPE II ICD-250.80 Inactive Marvel MENDOZAP 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 Inactive Alina Castaneda MD PhD Diabetes mellitus, type II, uncontrolled ICD-250.02 Inactive Alina Castaneda MD PhD RIB PAIN, RIGHT SIDED ICD-786.50 Inactive Alina Castaneda MD PhD SINUSITIS, ACUTE ICD-461.9 Inactive Alina Castaneda MD PhD SPECIAL SCREENING [...] MD PHARYNGITIS ICD-462 Inactive Mason Loredo MD Hypoglycemia ICD-251.2 Inactive Alina Castaneda MD PhD Dizziness ICD-780.4 Inactive Alina Castaneda MD PhD Medication List Medication Instructions Start Date Stop Date Generic Name NDC Status Provider Patient Instruction SEROQUEL 100 MG ORAL TABLET 1 tab daily QUETIAPINE FUMARATE 01212714438 No Longer Active Shavonne Feliciano PA-C Active SEROQUEL 25 MG ORAL TABLET Take two tabs by mouth in the morning, take 4 tablets at night QUETIAPINE FUMARATE 47204833953 Active Shavonne Feliciano PA-C Active [facility] MELATONIN 3 MG ORAL TABLET give 1 tab by mouth at HS MELATONIN 37732161837 No Longer Active Gabrielle Marquez MA Active NOVOLOG FLEXPEN 100 UNIT/ML SUBCUTANEOUS SOLUTION PEN-INJECTOR sliding scale INSULIN ASPART 12875951270 Active Gabrielleadrienne Marquez MA Active METFORMIN HCL 1000 MG ORAL TABLET 1 tab by mouth BID METFORMIN HCL 42878625324 Active Gabrielleadrienne Marquez MA Active [facility] MELATONIN 3 MG ORAL TABLET 1 tab nightly MELATONIN 94421145649 Active Gabrielle Littleananda BERT Active TAMSULOSIN HCL 0.4 MG ORAL CAPSULE give 2 capsules PO each evening TAMSULOSIN HCL 69630799437 No Longer Active Gabrielle Littleananda BERT Active VITAMIN D 2000 UNIT ORAL CAPSULE Take one by mouth daily CHOLECALCIFEROL 32655131911 No Longer Active Gabrielle Littleananda BERT Active LATUDA 40 MG ORAL TABLET 1.5 tab by mouth in the afternoon LURASIDONE HCL 27445559606 Active Gabrielle Littleananda BERT Active LEVEMIR 100 UNIT/ML SUBCUTANEOUS SOLUTION 10 u at bedtime INSULIN DETEMIR 67932255250 Active Gabrielle Littleananda BERT Active TAMSULOSIN HCL 0.4 MG ORAL CAPSULE 2 every night for urine flow TAMSULOSIN HCL 74726830227 Active Gabrielle Marquez MA Active DIVALPROEX SODIUM 125 MG ORAL TABLET DELAYED RELEASE 1 tab each morning 02/17 DIVALPROEX SODIUM 80024262843 Active Gabrielle Marquez MA Active D 1000 TABLET 2 tab by mouth BID CHOLECALCIFEROL TABS 38743423538 Active Gabrielle Marquez MA Active ALIGN 4 MG ORAL CAPSULE 1 tab at hs PROBIOTIC PRODUCT 54621655020 Active Gabrielle Marquez MA Active CLONAZEPAM 1 MG ORAL TABLET 1 pill by mouth two times daily CLONAZEPAM 94149717320 Active Gabrielle Marquez MA Active FENOFIBRATE 160 MG ORAL TABLET Take 1 tablet by mouth daily FENOFIBRATE 31144039545 Active Mya Ledezma MA Active OCEAN NASAL SPRAY SOLUTION 2 sprays in both nostrils every 8 hours as needed for dry mucous membranes SALINE SOLN 56260373596 Active Mason Loredo MD Active BETHANECHOL CHLORIDE 25 MG ORAL TABLET Take 1 tablet mouth four times a day BETHANECHOL CHLORIDE 66260608598 Active Mason Loredo MD Active [facility] LUBRICANT EYE DROPS 0.4-0.3 % OPHTHALMIC SOLUTION POLYETHYL GLYCOL-PROPYL GLYCOL 42541326296 No Longer Active Mason Loredo MD Active TYLENOL 8 HOUR 650 MG ORAL TABLET EXTENDED RELEASE 1 tab QID prn ACETAMINOPHEN 90853106688 No Longer Active Masno Loredo MD Active TOPAMAX 25 MG ORAL TABLET 1 tab BID PRN TOPIRAMATE 33847770363 Active Mason Loredo MD Active TIMOPTIC OCUDOSE 0.5 % OPHTHALMIC SOLUTION instill one drop into both eyes q12H TIMOLOL MALEATE 38589653376 Active Mason Loredo MD Active TRAZODONE HCL 100 MG ORAL TABLET 1 every night to prevent headaches TRAZODONE HCL 92338568618 No Longer Active Mason Loredo MD Active TRAVATAN Z 0.004 % OPHTHALMIC SOLUTION 1 drop each eye daily 2017 TRAVOPROST 82780160114 No Longer Active Mason Loredo MD Active LATUDA 60 MG ORAL TABLET 1 tab daily LURASIDONE HCL 58667613079 No Longer Active Mason Loredo MD Active MORPHINE SULFATE ER 30 MG ORAL TABLET EXTENDED RELEASE Take one capsule BID MORPHINE SULFATE 91536837473 No Longer Active Mason Loredo MD Active TRUE METRIX BLOOD GLUCOSE TEST IN VITRO STRIP Check blood sugars 3x/day. 2015 GLUCOSE BLOOD 71133871280 No Longer Active Mason Loredo MD Active TRUEPLUS LANCETS 30G 3x a day LANCETS 93174158628 No Longer Active Mason Loredo MD Active MYLANTA GAS RELIEF MAXIMUM STR 125 MG ORAL CAPSULE 30cc every 4 hours prn SIMETHICONE 12372219758 No Longer Active Msaon Loredo MD Active IMODIUM A-D 2 MG ORAL TABLET 1 tab QID as needed LOPERAMIDE HCL 34863217639 No Longer Active Mason Loredo MD Active FLONASE ALLERGY RELIEF 50 MCG/ACT NASAL SUSPENSION One spray each nostril BID x 1 week then daily FLUTICASONE PROPIONATE 35594420007 No Longer Active Mason Loredo MD Active FLUVOXAMINE MALEATE 100 MG ORAL TABLET take one tab every AM et HS, and take 1 /2 tab at noon FLUVOXAMINE MALEATE 16308524212 No Longer Active Mason Loredo MD Active BD PEN NEEDLE MINI U/F 31G X 5 MM 4 a day INSULIN PEN NEEDLE 31847810526 No Longer Active Mason Loredo MD Active AMITIZA 24 MCG ORAL CAPSULE Take one capsule BID for constipation LUBIPROSTONE 56105615357 No Longer Active Mason Loredo MD Active TRUEPLUS LANCETS 30G 3 a day LANCETS 09979560965 No Longer Active Mason Loredo MD Active CORICIDIN HBP CONGESTION/COUGH 10-200 MG ORAL CAPSULE Take as directed on box as needed for cold/flu symptoms DEXTROMETHORPHAN- GUAIFENESIN 64331919094 No Longer Active Mason Loredo MD Active OMEGA-3 300 MG ORAL CAPSULE 4 caps by mouth daily OMEGA-3 FATTY ACIDS 58796013529 No Longer Active Mason Loredo MD Active HUMALOG KWIKPEN 100 UNIT/ML SUBCUTANEOUS SOLUTION PEN-INJECTOR sliding scale if needed INSULIN LISPRO (HUMAN) 24020052785 No Longer Active Mason Loredo MD Active TRUETEST TEST IN VITRO STRIP check blood sugars 3x/day GLUCOSE BLOOD 94617512041 No Longer Active Mason Loredo MD Active ALFUZOSIN HCL ER 10 MG ORAL TABLET EXTENDED RELEASE 24 HOUR 1 tablet daily ALFUZOSIN HCL 33551725254 No Longer Active Mason Loredo MD Active BD INSULIN SYRINGE 28G X 1/2" 1 ML 1 four times per day INSULIN SYRINGE-NEEDLE U-100 70691450938 No Longer Active Mason Loredo MD Active LEVEMIR FLEXTOUCH 100 UNIT/ML SUBCUTANEOUS SOLUTION PEN-INJECTOR 60 units SQ each evening, for diabetes INSULIN DETEMIR 78825011570 No Longer Active Mason Loredo MD Active LACTULOSE 20 GM/30ML ORAL SOLUTION give 30 Ml PO BID PRN LACTULOSE 64921290801 Active Mason Loredo MD Active COLACE 100 MG ORAL CAPSULE 1 tab BID PRN DOCUSATE SODIUM 14399255889 Active Mason Loredo MD Active LATANOPROST 0.005 % OPHTHALMIC SOLUTION instill 1 drop in both eyes at bed time LATANOPROST 31961203670 Active Mason Loredo MD Active AMARYL 2 MG ORAL TABLET give 2.5 tabs PO daily GLIMEPIRIDE 53514966527 Active Mason Loredo MD Active MIRALAX ORAL POWDER 17g by mouth q12h, for constipation POLYETHYLENE GLYCOL 3350 34692121442 Active Mason Loredo MD Active IBUPROFEN 400 MG ORAL TABLET 1 tab Q6H PRN IBUPROFEN 48672018729 Active Mason Loredo MD Active EFFEXOR XR 37.5 MG ORAL CAPSULE EXTENDED RELEASE 24 HOUR Take one by mouth daily VENLAFAXINE HCL 70304577572 Active Mima Erazo APRN Active FLUVOXAMINE MALEATE 50 MG ORAL TABLET 1 tab by mouth daily 04/01 FLUVOXAMINE MALEATE 12890415413 No Longer Active Mima Erazo APRN Active TRUE METRIX METER w/Device KIT Check blood sugars 3x/day BLOOD GLUCOSE MONITORING SUPPL 96656487157 Active Marvel Charles [employer] Active LATUDA 60 MG ORAL TABLET Take one by mouth daily LURASIDONE HCL 66361977847 No Longer Active Mima Erazo APRN Active [facility] MILK OF MAGNESIA 400 MG/5ML ORAL SUSPENSION 30ml by mouth bid prn MAGNESIUM HYDROXIDE 69225755941 Active Mason Loredo MD Active TRAVATAN Z 0.004 % OPHTHALMIC SOLUTION 1 gtt each eye daily TRAVOPROST 66083318402 No Longer Active Mason Loredo MD Active LISINOPRIL 20 MG ORAL TABLET 1 BID LISINOPRIL 01402217039 No Longer Active Mason Loredo MD Active ZOLPIDEM TARTRATE 10 MG ORAL TABLET take at bedtime ZOLPIDEM TARTRATE 99645454388 No Longer Active Mason Loredo MD Active HYDROCODONE-ACETAMINOPHEN 5-325 MG ORAL TABLET 2 tabs by mouth three times daily for pain HYDROCODONE-ACETAMINOPHEN 59855553818 No Longer Active Mason Loredo MD Active ZOFRAN 4 MG ORAL TABLET 1 po q4hr PRN Nausea ONDANSETRON HCL 99439821615 No Longer Active Mason Loredo MD Active LOMOTIL 2.5-0.025 MG ORAL TABLET take 1-2 tabs PO after each stool, no more than 8 in 24 hours DIPHENOXYLATE-ATROPINE 64346837893 No Longer Active Mason Loredo MD Active COLACE 100 MG ORAL CAPSULE 1 pill by mouth twice daily, for constipation 2014 DOCUSATE SODIUM 02672556797 No Longer Active Mima Erazo APRN Active TOLTERODINE TARTRATE 2 MG ORAL TABLET 1 pill twice daily, for bladder TOLTERODINE TARTRATE 97641019692 No Longer Active Vanessa Hickey MD Active AMITIZA 24 MCG ORAL CAPSULE Take one capsule BID for constipation. LUBIPROSTONE 05762466020 No Longer Active Vanessa Hickey MD Active METOPROLOL SUCCINATE ER 100 MG ORAL TABLET EXTENDED RELEASE 24 HOUR 1 by mouth daily for blood pressure METOPROLOL SUCCINATE 29887669321 No Longer Active Grace Nascimento RMA Active METFORMIN HCL ER 500 MG ORAL TABLET EXTENDED RELEASE 24 HOUR Take three tablets by mouth everyday METFORMIN HCL 32666376473 No Longer Active Grace Nelsonb RMA Active LOVAZA 1 GM ORAL CAPSULE 4 daily (for triglycerides) EPJOB-2-VVCF ETHYL ESTERS 53286704864 No Longer Active Grace Azam RMA Active TRAZODONE HCL 100 MG ORAL TABLET 1 tab by mouth for sleep TRAZODONE HCL 27879744875 No Longer Active Grace Azam RMA Active NOVOFINE 32G X 6 MM use one four times per day INSULIN PEN NEEDLE 79781322035 No Longer Active Grace Azam RMA Active BACTROBAN 2 % EXTERNAL CREAM Apply to affected area BID for up to 10 days MUPIROCIN CALCIUM 57342733672 No Longer Active Grace Azam RMA Active KEFLEX 500 MG ORAL CAPSULE 1 po BID x 7 days CEPHALEXIN 54630218846 No Longer Active Cherelle Avila APRN Active FLUVOXAMINE MALEATE 100 MG ORAL TABLET Take one (1) tablet by mouth am, 1/2 at noon FLUVOXAMINE MALEATE 19121624474 No Longer Active Mima Erazo APRN Active FLUVOXAMINE MALEATE 100 MG ORAL TABLET Take 1/2 tab at noon 03/04 FLUVOXAMINE MALEATE 81064299529 No Longer Active Cherelle Avila APRN Active ACCU-CHEK ROSA DEVICE Use device to check blood sugars BLOOD GLUCOSE MONITORING SUPPL 69188494895 No Longer Active Marvel Araceli MARROQUIN Active ACCU-CHEK ROSA IN VITRO STRIP use strips with device to check blood sugars 3 times daily GLUCOSE BLOOD 40846146772 No Longer Active Marvel Mackenzieajayari [employer] Active VERAPAMIL HCL ER 180 MG ORAL TABLET EXTENDED RELEASE 1 pill by mouth twice daily, for migraine prevention VERAPAMIL HCL 12810424077 Active Mima Erazo APRN Active CYCLOBENZAPRINE HCL 10 MG ORAL TABLET 1 tablet by mouth three times daily, scheduled CYCLOBENZAPRINE HCL 97133960246 No Longer Active Alina Castaneda MD PhD Active HUMALOG 100 UNIT/ML SUBCUTANEOUS SOLUTION Take 20 units with breakfast, 10u with lunch and suppetr. INSULIN LISPRO (HUMAN) 41843707194 No Longer Active Alina Castaneda MD PhD Active TRUETEST TEST IN VITRO STRIP check sugars 4x/day GLUCOSE BLOOD 66831186155 No Longer Active Alina Castaneda MD PhD Active MORPHINE SULFATE 30 MG ORAL TABLET 1 pill by mouth twice daily, for pain 2013 MORPHINE SULFATE 39427999078 No Longer Active Mason Loredo MD Active ACYCLOVIR 400 MG ORAL TABLET 1 pill three times daily x 5 days, for cold sore outbreak ACYCLOVIR 65351131097 No Longer Active Alina Castaneda MD PhD Active PENICILLIN V POTASSIUM 500 MG ORAL TABLET 1 pill by mouth three times daily PENICILLIN V POTASSIUM 09041297057 No Longer Active Alina Castaneda MD PhD Active UROXATRAL 10 MG ORAL TABLET EXTENDED RELEASE 24 HOUR Take 1 tablet by mouth daily ALFUZOSIN HCL 91309609167 No Longer Active Alina Castaneda MD PhD Active THIOTHIXENE 5 MG ORAL CAPSULE by mouth twice a day THIOTHIXENE 86386326288 No Longer Active Alina Castaneda MD PhD Active ZYPREXA 7.5 MG ORAL TABLET 1 at HS OLANZAPINE 03007972872 No Longer Active Alina Castaneda MD PhD Active DETROL LA 4 MG ORAL CAPSULE EXTENDED RELEASE 24 HOUR Take 1 tablet by mouth daily TOLTERODINE TARTRATE 05646862563 No Longer Active Alina Castaneda MD PhD Active TERESE CONTOUR TEST IN VITRO STRIP monitor blood sugars 3x/day GLUCOSE BLOOD 68911596596 No Longer Active Alina Castaneda MD PhD Active EQL TRUETEST TEST IN VITRO STRIP Test blood sugar TID GLUCOSE BLOOD 54213842732 No Longer Active Alina Castaneda MD PhD Active FLUTICASONE PROPIONATE 50 MCG/ACT NASAL SUSPENSION 2 sprays each nostril qDay x 30 days FLUTICASONE PROPIONATE 85488843122 No Longer Active Alina Castaneda MD PhD Active IBUPROFEN 200 MG ORAL TABLET 1 Q 6 hr. PRN IBUPROFEN 66205091105 No Longer Active Alina Castaneda MD PhD Active NIACIN ER 500 MG ORAL TABLET EXTENDED RELEASE 4 qHS (for triglycerides) 01/13 NIACIN 80685648887 No Longer Active Alina Castaneda MD PhD Active SAPHRIS 5 MG SUBLINGUAL TABLET SUBLINGUAL by mouth twice a day ASENAPINE MALEATE 73184978724 No Longer Active Maljohn MARROQUIN Active ACETAMINOPHEN 500 MG ORAL TABLET 2 Q 6 hr. PRN ACETAMINOPHEN 26966046386 No Longer Active Malihnivia Ziglari [employer] Active ORPHENADRINE CITRATE ER 100 MG ORAL TABLET EXTENDED RELEASE 12 HOUR 1 every 12 hr. as needed ORPHENADRINE CITRATE 69156066904 No Longer Active Alina Castaneda MD PhD Active NIACIN ER 500 MG ORAL TABLET EXTENDED RELEASE 2 qHS NIACIN 66003846003 No Longer Active Alina Castaneda MD PhD Active AMOXICILLIN 500 MG ORAL CAPSULE 2 po BID x 10 days AMOXICILLIN 32143430998 No Longer Active Alina Castaneda MD PhD Active HYDROCODONE-ACETAMINOPHEN 7.5-325 MG ORAL TABLET 1 four times a day as needed for pain HYDROCODONE-ACETAMINOPHEN 55398469058 No Longer Active Alina Castaneda MD PhD Active DOXEPIN HCL 10 MG ORAL CAPSULE Take 1 tablet by mouth daily DOXEPIN HCL 79242382592 No Longer Active Salina Han A Active NAVANE 10 MG CAPS 1/2 tablet twice a day THIOTHIXENE No Longer Active Salina ROBBINSA Active CYCLOBENZAPRINE HCL 10 MG ORAL TABLET 1/2 tablet by mouth every 8 hours as needed for muscle spasms CYCLOBENZAPRINE HCL 90235800215 No Longer Active Alina Castaneda MD PhD Active BACTROBAN 2 % EXTERNAL CREAM apply to ear and nose twice daily MUPIROCIN CALCIUM 38674388979 No Longer Active Alina Castaneda MD PhD Active HYDROCODONE-ACETAMINOPHEN 5-325 MG ORAL TABLET take one tablet by mouth every four hours as needed for pain HYDROCODONE-ACETAMINOPHEN 98355143513 No Longer Active Alina Castaneda MD PhD Active ZYPREXA 5 MG ORAL TABLET take one tablet by mouth every evening OLANZAPINE 20497877224 No Longer Active Alina Castaneda MD PhD Active ALBUTEROL SULFATE (2.5 MG/3ML) 0.083% INHALATION NEBULIZATION SOLUTION one vial per nebulizer TID and PRN cough/soa ALBUTEROL SULFATE 58839428357 No Longer Active Alina Castaneda MD PhD Active GUAIFENESIN ER 600 MG ORAL TABLET EXTENDED RELEASE 12 HOUR 1 tablet by mouth twice daily if needed for cough GUAIFENESIN 26770723865 No Longer Active Marvel MARROQUIN Active AZITHROMYCIN 500 MG INTRAVENOUS SOLUTION RECONSTITUTED 1 po q day AZITHROMYCIN 47212083757 No Longer Active Alina Castaneda MD PhD Active PROMETHAZINE-CODEINE 6.25-10 MG/5ML ORAL SYRUP 1 tsp po q 6 hours prn cough PROMETHAZINE-CODEINE 32073696383 No Longer Active Alina Castaneda MD PhD Active CEFDINIR 300 MG ORAL CAPSULE by mouth twice a day CEFDINIR 87290260619 No Longer Active Alina Castaneda MD PhD Active METFORMIN HCL ER 500 MG ORAL TABLET EXTENDED RELEASE 24 HOUR Take 3 tablets by mouth everyday METFORMIN HCL 39796164899 No Longer Active Alina Castaneda MD PhD Active LEVEMIR 100 UNIT/ML SUBCUTANEOUS SOLUTION 90 units SQ qHS INSULIN DETEMIR 43842874941 No Longer Active Marvel MARROQUIN Active TOPROL XL 100 MG ORAL TABLET EXTENDED RELEASE 24 HOUR 1 @ HS METOPROLOL SUCCINATE 90949354318 No Longer Active Marvel MARROQUIN Active ALLOPURINOL 300 MG ORAL TABLET Take one by mouth daily ALLOPURINOL 60942539448 Active Mima Erazo METAL BUFFER Active ZYPREXA 10 MG ORAL TABLET Take one by mouth daily OLANZAPINE 18578606086 No Longer Active Alina Castaneda MD PhD Active NOVOLOG 100 UNIT/ML SUBCUTANEOUS SOLUTION 40 units with every meal INSULIN ASPART 04205739514 No Longer Active Alina Castaneda MD PhD Active VERAPAMIL HCL ER 120 MG ORAL TABLET EXTENDED RELEASE 1 qPM 09/08 VERAPAMIL HCL 83160026922 No Longer Active Salina ROJAS Active ZYPREXA 15 MG ORAL TABLET Take 1 tablet by mouth daily OLANZAPINE 51008664723 No Longer Active Marvel MARROQUIN Active ALBUTEROL SULFATE (2.5 MG/3ML) 0.083% INHALATION NEBULIZATION SOLUTION 1 neb tid and prn cough ALBUTEROL SULFATE 46320275814 No Longer Active Alina Castaneda MD PhD Active LANTUS 100 UNIT/ML SUBCUTANEOUS SOLUTION 60 units sq q hs INSULIN GLARGINE 59917433321 No Longer Active CRYSTAL Suarez Active ALBUTEROL SULFATE (2.5 MG/3ML) 0.083% INHALATION NEBULIZATION SOLUTION 1 neb tid and prn cough ALBUTEROL SULFATE (2.5 MG/3ML) 0.083% INHALATION NEBULIZATION SOLUTION 579651 ALBUTEROL SULFATE Inactive ZYPREXA 15 MG ORAL TABLET Take 1 tablet by mouth daily ZYPREXA 15 MG ORAL TABLET 522537 OLANZAPINE Inactive VERAPAMIL HCL ER 120 MG ORAL TABLET EXTENDED RELEASE 1 qPM 09/08 VERAPAMIL HCL ER 120 MG ORAL TABLET EXTENDED RELEASE VERAPAMIL HCL Inactive ZYPREXA 10 MG ORAL TABLET Take one by mouth daily ZYPREXA 10 MG ORAL TABLET 880750 OLANZAPINE Inactive TOPROL XL 100 MG ORAL TABLET EXTENDED RELEASE 24 HOUR 1 @ HS TOPROL XL 100 MG ORAL TABLET EXTENDED RELEASE 24 HOUR METOPROLOL SUCCINATE Inactive LEVEMIR 100 UNIT/ML SUBCUTANEOUS SOLUTION 90 units SQ qHS LEVEMIR 100 UNIT/ML SUBCUTANEOUS SOLUTION INSULIN DETEMIR Inactive PROMETHAZINE-CODEINE 6.25-10 MG/5ML ORAL SYRUP 1 tsp po q 6 hours prn cough PROMETHAZINE-CODEINE 6.25-10 MG/5ML ORAL SYRUP 811603 PROMETHAZINE-CODEINE Inactive GUAIFENESIN ER 600 MG ORAL TABLET EXTENDED RELEASE 12 HOUR 1 tablet by mouth twice daily if needed for cough GUAIFENESIN ER 600 MG ORAL TABLET EXTENDED RELEASE 12 HOUR GUAIFENESIN Inactive ALBUTEROL SULFATE (2.5 MG/3ML) 0.083% INHALATION NEBULIZATION SOLUTION one vial per nebulizer TID and PRN cough/soa ALBUTEROL SULFATE (2.5 MG/3ML) 0.083% INHALATION NEBULIZATION SOLUTION 796446 ALBUTEROL SULFATE Inactive ZYPREXA 5 MG ORAL TABLET take one tablet by mouth every evening ZYPREXA 5 MG ORAL TABLET 280318 OLANZAPINE Inactive HYDROCODONE-ACETAMINOPHEN 5-325 MG ORAL TABLET take one tablet by mouth every four hours as needed for pain HYDROCODONE-ACETAMINOPHEN 5-325 MG ORAL TABLET 994869 HYDROCODONE-ACETAMINOPHEN Inactive BACTROBAN 2 % EXTERNAL CREAM apply to ear and nose twice daily BACTROBAN 2 % EXTERNAL CREAM 345901 MUPIROCIN CALCIUM Inactive CYCLOBENZAPRINE HCL 10 MG ORAL TABLET 1/2 tablet by mouth every 8 hours as needed for muscle spasms CYCLOBENZAPRINE HCL 10 MG ORAL TABLET 271931 CYCLOBENZAPRINE HCL Inactive NAVANE 10 MG CAPS 1/2 tablet twice a day NAVANE 10 MG CAPS THIOTHIXENE Inactive DOXEPIN HCL 10 MG ORAL CAPSULE Take 1 tablet by mouth daily DOXEPIN HCL 10 MG ORAL CAPSULE 8880691 DOXEPIN HCL Inactive HYDROCODONE-ACETAMINOPHEN 7.5-325 MG ORAL TABLET 1 four times a day as needed for pain HYDROCODONE-ACETAMINOPHEN 7.5-325 MG ORAL TABLET 936194 HYDROCODONE-ACETAMINOPHEN Inactive NIACIN ER 500 MG ORAL [...] hr. PRN ACETAMINOPHEN 500 MG ORAL TABLET 833790 ACETAMINOPHEN Inactive SAPHRIS 5 MG SUBLINGUAL TABLET SUBLINGUAL by mouth twice a day SAPHRIS 5 MG SUBLINGUAL TABLET SUBLINGUAL ASENAPINE MALEATE Inactive NIACIN ER 500 MG ORAL TABLET EXTENDED RELEASE 4 qHS (for triglycerides) 01/13 NIACIN ER 500 MG ORAL TABLET EXTENDED RELEASE NIACIN Inactive IBUPROFEN 200 MG ORAL TABLET 1 Q 6 hr. PRN IBUPROFEN 200 MG ORAL TABLET 376242 IBUPROFEN Inactive FLUTICASONE PROPIONATE 50 MCG/ACT NASAL SUSPENSION 2 sprays each nostril qDay x 30 days FLUTICASONE PROPIONATE 50 MCG/ACT NASAL SUSPENSION 9321219 FLUTICASONE PROPIONATE Inactive EQL TRUETEST TEST IN [...] at HS ZYPREXA 7.5 MG ORAL TABLET 698243 OLANZAPINE Inactive THIOTHIXENE 5 MG ORAL CAPSULE by mouth twice a day THIOTHIXENE 5 MG ORAL CAPSULE 349408 THIOTHIXENE Inactive UROXATRAL 10 MG ORAL TABLET EXTENDED RELEASE 24 HOUR Take 1 tablet by mouth daily UROXATRAL 10 MG ORAL TABLET EXTENDED RELEASE 24 HOUR ALFUZOSIN HCL Inactive ACYCLOVIR 400 MG ORAL TABLET 1 pill three times daily x 5 days, for cold sore outbreak ACYCLOVIR 400 MG ORAL TABLET 556796 ACYCLOVIR Inactive TRUETEST TEST IN VITRO STRIP check sugars 4x/day TRUETEST TEST IN VITRO STRIP GLUCOSE BLOOD Inactive HUMALOG 100 UNIT/ML SUBCUTANEOUS SOLUTION Take 20 units with breakfast, 10u with lunch and suppetr. HUMALOG 100 UNIT/ML SUBCUTANEOUS SOLUTION INSULIN LISPRO (HUMAN) Inactive CYCLOBENZAPRINE HCL 10 MG ORAL TABLET 1 tablet by mouth three times daily, scheduled CYCLOBENZAPRINE HCL 10 MG ORAL TABLET 709411 CYCLOBENZAPRINE HCL Inactive ACCU-CHEK ROSA IN VITRO STRIP use strips with device to check blood sugars 3 times daily ACCU-CHEK ROSA IN VITRO STRIP GLUCOSE BLOOD Inactive ACCU-CHEK ROSA DEVICE Use device to check blood sugars ACCU-CHEK ROSA DEVICE BLOOD GLUCOSE MONITORING SUPPL Inactive FLUVOXAMINE MALEATE 100 MG ORAL TABLET Take 1/2 tab at noon 03/04 FLUVOXAMINE MALEATE 100 MG ORAL TABLET 831754 FLUVOXAMINE MALEATE Inactive FLUVOXAMINE MALEATE 100 MG ORAL TABLET Take one (1) tablet by mouth am, 1/2 at noon FLUVOXAMINE MALEATE 100 MG ORAL TABLET 213508 FLUVOXAMINE MALEATE Inactive BACTROBAN 2 % EXTERNAL CREAM Apply to affected area BID for up to 10 days BACTROBAN 2 % EXTERNAL CREAM 469032 MUPIROCIN CALCIUM Inactive NOVOFINE 32G X 6 MM use one four times per day NOVOFINE 32G X 6 MM INSULIN PEN NEEDLE Inactive TRAZODONE HCL 100 MG ORAL TABLET 1 tab by mouth for sleep TRAZODONE HCL 100 MG ORAL TABLET 147758 TRAZODONE HCL Inactive LOVAZA 1 GM ORAL CAPSULE 4 daily (for triglycerides) LOVAZA 1 GM ORAL CAPSULE 321489 UGOOD-4-YPLW ETHYL ESTERS Inactive METFORMIN HCL ER 500 [...] bladder TOLTERODINE TARTRATE 2 MG ORAL TABLET 543428 TOLTERODINE TARTRATE Inactive COLACE 100 MG ORAL CAPSULE 1 pill by mouth twice daily, for constipation 2014 COLACE 100 MG ORAL CAPSULE 0993355 DOCUSATE SODIUM Inactive LOMOTIL 2.5-0.025 MG ORAL TABLET take 1-2 tabs PO after each stool, no more than 8 in 24 hours LOMOTIL 2.5-0.025 MG ORAL TABLET 8023735 DIPHENOXYLATE-ATROPINE Inactive ZOFRAN 4 MG ORAL TABLET 1 po q4hr PRN Nausea ZOFRAN 4 MG ORAL TABLET 150099 ONDANSETRON HCL Inactive HYDROCODONE-ACETAMINOPHEN 5-325 MG ORAL TABLET 2 tabs by mouth three times daily for pain HYDROCODONE-ACETAMINOPHEN 5-325 MG ORAL TABLET 363420 HYDROCODONE-ACETAMINOPHEN Inactive ZOLPIDEM TARTRATE 10 MG ORAL TABLET take at bedtime ZOLPIDEM TARTRATE 10 MG ORAL TABLET 079129 ZOLPIDEM TARTRATE Inactive LISINOPRIL 20 MG ORAL TABLET 1 BID LISINOPRIL 20 MG ORAL TABLET 996727 LISINOPRIL Inactive TRAVATAN Z 0.004 % OPHTHALMIC SOLUTION 1 gtt each eye daily TRAVATAN Z 0.004 % OPHTHALMIC SOLUTION TRAVOPROST Inactive LATUDA 60 MG ORAL TABLET Take one by mouth daily LATUDA 60 MG ORAL TABLET LURASIDONE HCL Inactive FLUVOXAMINE MALEATE 50 MG ORAL TABLET 1 tab by mouth daily 04/01 FLUVOXAMINE MALEATE 50 MG ORAL TABLET 801951 FLUVOXAMINE MALEATE Inactive LEVEMIR FLEXTOUCH 100 UNIT/ML [...] 30G 3 a day TRUEPLUS LANCETS 30G [id number] LANCETS Inactive AMITIZA 24 MCG ORAL CAPSULE [...] noon FLUVOXAMINE MALEATE 100 MG ORAL TABLET 557779 FLUVOXAMINE MALEATE Inactive FLONASE ALLERGY RELIEF 50 MCG/ACT NASAL SUSPENSION One spray each nostril BID x 1 week then daily FLONASE ALLERGY RELIEF 50 MCG/ACT NASAL SUSPENSION 7454391 FLUTICASONE PROPIONATE Inactive IMODIUM A-D 2 MG ORAL TABLET 1 tab QID as needed IMODIUM A-D 2 MG ORAL TABLET 163323 LOPERAMIDE HCL Inactive MYLANTA GAS RELIEF MAXIMUM STR 125 MG ORAL CAPSULE 30cc every 4 hours prn MYLANTA GAS RELIEF MAXIMUM STR 125 MG ORAL CAPSULE SIMETHICONE Inactive TRUEPLUS LANCETS 30G 3x a day TRUEPLUS LANCETS 30G [id number] LANCETS Inactive TRUE METRIX BLOOD GLUCOSE TEST [...] headaches TRAZODONE HCL 100 MG ORAL TABLET 294818 TRAZODONE HCL Inactive TYLENOL 8 HOUR 650 [...] evening TAMSULOSIN HCL 0.4 MG ORAL CAPSULE 612680 TAMSULOSIN HCL Inactive [facility] MELATONIN 3 MG ORAL TABLET give 1 tab by mouth at HS [facility] MELATONIN 3 MG ORAL TABLET 073553 MELATONIN Inactive SEROQUEL 100 MG ORAL TABLET 1 tab daily SEROQUEL 100 MG ORAL TABLET 131080 QUETIAPINE FUMARATE Inactive CEFDINIR 300 MG ORAL CAPSULE by mouth twice a day CEFDINIR 300 MG ORAL CAPSULE 561008 CEFDINIR Inactive AZITHROMYCIN 500 MG INTRAVENOUS SOLUTION RECONSTITUTED 1 po q day AZITHROMYCIN 500 MG INTRAVENOUS SOLUTION RECONSTITUTED [id number] AZITHROMYCIN Inactive AMOXICILLIN 500 MG ORAL CAPSULE 2 po BID x 10 days AMOXICILLIN 500 MG ORAL CAPSULE 139765 AMOXICILLIN Inactive PENICILLIN V POTASSIUM 500 MG ORAL TABLET 1 pill by mouth three times daily PENICILLIN V POTASSIUM 500 MG ORAL TABLET 617684 PENICILLIN V POTASSIUM Inactive KEFLEX 500 MG ORAL CAPSULE 1 po BID x 7 days KEFLEX 500 MG ORAL CAPSULE 201281 CEPHALEXIN Inactive Immunizations Vaccine Administration Date Value [...] Fluvirin, Fluarix, Agriflu(>=18 yo)) Fluzone (>3 yrs.) [[id number]] Influenza, seasonal, injectable pneumococcal immunization administered Pneumovax [...] ... - Chemistry sodium, serum 135 mmol/L 761-405 6590/08/22 carbon dioxide, venous blood 28.4 mmol/L 21.0-32.0 [...] mg/g {creat} 0-29 cholesterol, serum 263 mg/dL 176-141 9110/08/22 triglyceride, serum, fasting 1312 mg/dL 30-200 HDL [...] ordered Encounters Code Encounter Date Provider Facility CPT-98868 70207-Onn Vst-Est Level III 11:00:25 CDT Shavonne Feliciano PA-C [facility] CPT-99324 Level 3 Est. Patient 09:12:14 [employer]IST [facility] CPT-84243 Level 3 Est. Patient 16:52:51 CDT Vanessa Hickey MD [facility] CPT-51496 Level 3 Est. Patient 17:40:16 CDT [facility] CPT-61120 Level 3 Est. Patient 14:34:52 CDT Vanessa Hickey MD [facility] CPT-25261 Level 3 Est. Patient 16:27:51 CDT [facility] CPT-79560 Level 3 Est. Patient 14:39:00 [employer]IV[employer]IST Vanessa Hickey MD [facility] CPT-40282 Level 2 Est. Patient 18:43:34 CDT [facility] CPT-82858 Level 3 Est. Patient 16:22:09 CDT Cherelle Avila [facility] CPT-94604 Level 4 Est. Patient 17:55:14 CDT [facility] CPT-64511 Level 2 Est. Patient 17:13:21 CDT Alina Castaneda MD [facility]-43489 Level 3 Est. Patient 14:46:15 CDT Vanessa Hickey MD [facility]-68646 Level 3 Est. Patient 09:34:56 CDT Alina Castaneda MD [facility]-82652 Level 3 Est. Patient 21:40:19 CDT [facility]-81334 Level 3 Est. Patient 09:26:40 CDT Marvel Charles [facility]-30790 Level 3 Est. Patient 12:36:43 CDT Vanessa Hickey MD [facility]-85382 Level 3 Est. Patient 12:57:49 CDT Vanessa Hickey MD [facility]-23329 Level 3 Est. Patient 00:28:25 CDT Alina Catsaneda MD [facility]-23099 Level 2 Est. Patient 12:52:14 CDT Alina Castaneda MD [facility]-43617 Level 3 Est. Patient 11:51:18 [employer]IV[employer] SPECIALIST Alina Castaneda MD [facility]-90514 Level 3 Est. Patient 10:09:22 [employer]IVERS[employer] EXT[employer]ION SPECIALIST Alina Castaneda MD [facility]-80030 Level 3 Est. Patient 14:36:26 UNIVERSITY EXT[employer]ION SPECIALIST Marvel Charles [facility]-04911 Level 3 Est. Patient 13:34:47 [employer]IV[employer] EXT[employer]ION SPECIALIST Alina Castaneda MD [facility]-80890 Level 3 Est. Patient 19:52:08 UNIVERSITY EXT[employer]ION SPECIALIST Alina Castaneda MD PhD [facility]-24383 Level 3 Est. Patient 10:01:51 [employer]IVERS[employer] EXT[employer]ION SPECIALIST Marvel Araceli [facility]-25872 Level 3 Est. Patient 21:54:06 CDT Vanessa Hickey MD [facility]-80202 Level 3 Est. Patient 08:54:46 CDT Alina Castaneda MD PhD [facility]-69798 Level 3 Est. Patient 09:32:11 CDT Marvel Charles [facility]-68454 Level 3 Est. Patient 12:02:49 CDT Alina Castaneda MD [facility]-93531 Level 3 Est. Patient 19:17:33 CDT Alina Castaneda MD [facility]-92334 Level 3 Est. Patient 13:19:10 CDT Brooksjohn Charles [facility]-65321 Level 3 Est. Patient 08:20:05 CDT Alina Castaneda MD [facility]-94936 Level 3 Est. Patient 15:17:18 CDT Alina Castaneda MD [facility]-06311 Level 3 Est. Patient 14:25:36 [employer]IVERSITY EXT[employer]ION SPECIALIST Marvel Araceli [facility]-70505 Level 3 Est. Patient 10:09:15 UNIVERS[employer] EXT[employer]ION SPECIALIST Marvel Araceli [facility]-42757 Level 3 Est. Patient 21:28:43 CDT Alina Castaneda MD [facility]-76955 Level 3 Est. Patient 15:20:11 CDT Marvel Charles [facility]-11107 Level 4 Est. Patient 19:08:12 CDT Alina Castaneda MD [facility]-84347 Level 3 Est. Patient 15:06:39 CDT Marvel Charles [facility]-15394 Level 4 Est. Patient 17:48:15 CDT Alina Castaneda MD [facility]-82790 Level 3 Est. Patient 14:53:49 CDT Alina Castaneda MD [facility]-82561 Level 3 Est. Patient 09:35:16 CDT Alina Castaneda MD [facility]-48282 Level 3 Est. Patient 12:23:22 CDT Alina Castaneda MD [facility]-55077 Level 3 Est. Patient 16:19:15 CDT Alina Castaneda MD [facility]-47318 Level 3 Est. Patient 21:39:56 [employer]IV[employer]ION SPECIALIST Alina Castaneda MD [facility]-60030 Level 4 Est. Patient 14:12:56 [employer]IV[employer] EXT[employer]ION SPECIALIST Alina Castaneda MD [facility]-60530 Level 2 Est. Patient 15:34:57 [employer]IVERSITY EXTENSION SPECIALIST Alina Castaneda MD [facility]-71033 Level 3 Est. Patient 12:17:04 UNIVERSITY EXTENSION SPECIALIST Alina Castaneda MD [facility]-68024 Level 3 Est. Patient 09:18:18 UNIVERSITY EXTENSION SPECIALIST Marvel Charles [facility]-02700 Level 2 Est. Patient 21:50:24 CDT Alina Castaneda MD [facility]-54911 Level 3 Est. Patient 09:17:28 CDT Marvel Charles [facility]-56930 Level 4 Est. Patient 18:54:02 CDT Alina Castaneda MD [facility] CPT-51596 Level 3 Est. Patient 10:47:10 CDT Alina Castaneda MD [facility] CPT-46760 Level 3 Est. Patient 09:22:20 CDT Marvel [address]stonestela [facility] CPT-75662 Level 3 Est. Patient 16:39:43 CDT Brooksnivia Thurstonestela [facility] CPT-90360 Level 3 Est. Patient 16:05:16 CDT Alina Castaneda MD [facility]-27650 Level 3 Est. Patient 00:29:15 CDT Alina Castaneda MD [facility]-33767 Level 3 Est. Patient 10:49:22 UNIVERSITY EXT[employer]ION SPECIALIST Marvel Thurstonestela [facility] CPT-59811 Level 3 Est. Patient 21:30:19 [employer]IVERSITY EXT[employer]ION SPECIALIST Alina Castaneda MD [facility] CPT-92614 Level 4 Est. Patient 17:04:11 UNIVERSITY EXTENSION SPECIALIST Marvel Thurstonestela [facility] CPT-58635 Level 3 Est. Patient 15:34:11 [facility] Level 2 Est. Patient 12:51:58 [employer]IV[employer] EXT[employer]ION SPECIALIST Alina Castaneda MD [facility] CPT-15276 Level 3 Est. Patient 13:20:01 [employer]IV[employer]ION SPECIALIST Alina Castaneda MD [facility] CPT-74242 Level 3 Est. Patient 09:23:35 CDT Alina Castaneda MD PhD [facility] Procedures Code Procedure Name Date Entry Date Standard Description CPT-TCMM Transitional Care Mgmt-Moderate 12:32:19 CDT CPT-11636 Level 2 Group Home 09:01:11 CDT CPT-00998 HGBA1C - LAB USE ONLY 09:30:27 [employer]IST CPT-43528 BMP - LAB USE ONLY 09:30:27 [employer]IST CPT-10090 Venipuncture Draw Fee 09:30:26 [employer]IST CPT-TCMM Transitional Care Mgmt-Moderate 10:25:31 CDT CPT-71212 Bladder Scan 14:34:53 CDT CPT-07407 Bladder Scan 14:39:01 [employer]IV[employer]IST CPT-TCMM Transitional Care Mgmt-Moderate 10:30:19 [employer]IV[employer]IST CPT-47825 Bladder Scan 12:36:44 CDT CPT-79799 Bladder Scan 21:54:06 CDT CPT-G0008 Administration of Influenza Virus Vaccine 13:05:26 CDT CPT-63835 Fluzone Quadrivalent Intramuscular Suspension 0.5 ML 13: 05:26 CDT CPT-40243 Administration single or combination vaccine inc oral 11 :49:51 CDT CPT-88474 Pneumovax 11:49:51 CDT CPT-96999 Ribs unilateral 2V 12:37:22 [employer]IST CPT-46255 Chest 2V Frontal and Lat 17:15:26 CDT CPT-26113 Abx/Therapy Injection 18:54:02 CDT CPT-J0696 Rocephin 1000 mg (Ceftriaxone) 16:00:32 CDT CPT-07559 Chest 2V Frontal and Lat 15:26:45 CDT CPT-78207 Chest 2V Frontal and Lat 10:23:27 CDT CPT-18759 Venipuncture Draw Fee 10:11:00 CDT CPT-16643 Administration single or combination vaccine inc oral 11 :56:38 CDT CPT-03519 Influenza split virus > age 3 11:56:38 CDT CPT-61268 Venipuncture Draw Fee 08:49:54 [employer]IST CPT-11630 EKG Trac and Interp 17:54:19 [employer]IVERS[employer]TENSION SPECIALIST
--- OUTSIDE RECORDS SUMMARY | 2018-07-02 12:47 | XMS REPORT | Clinical Summary ---
Author Author Admin, TERELL Organization [facility] Address Unknown Phone Unavailable Allergies, Adverse Reactions, [...] mellitus, type II 250.00 Active Marvel Thurstonari CARGOMAN Diabetes mellitus without mention of complication, type [...] Active Mason Loredo MD Obesity , unspecified WOUND, OPEN, NOSE ICD-873.20 Inactive Alina Castaneda [...] Generic Name NDC Status Provider Patient Instruction [facility] MELATONIN 3 MG ORAL TABLET give 1 tab by mouth at HS MELATONIN 49728006272 No Longer Active Gabrielle Marquez MA Active SEROQUEL 25 MG ORAL TABLET 2 tabs PO QID QUETIAPINE FUMARATE 82674743688 Active Gabrielle Marquez MA Active SEROQUEL 100 MG ORAL TABLET 1 tab daily QUETIAPINE FUMARATE 18704440660 Active Gabrielle Marquez MA Active NOVOLOG FLEXPEN 100 UNIT/ML SUBCUTANEOUS SOLUTION PEN-INJECTOR sliding scale INSULIN ASPART 62374385751 Active Gabrielle Marquez MA Active METFORMIN HCL 1000 MG ORAL TABLET 1 tab by mouth BID METFORMIN HCL 83697203800 Active Gabrielle Marquez MA Active [facility] MELATONIN 3 MG ORAL TABLET 1 tab nightly MELATONIN 00795082395 Active Gabrielle Marquez MA Active TAMSULOSIN HCL 0.4 MG ORAL CAPSULE give 2 capsules PO each evening TAMSULOSIN HCL 28478273161 No Longer Active Gabrielle Marquez MA Active VITAMIN D 2000 UNIT ORAL CAPSULE Take one by mouth daily CHOLECALCIFEROL 69341876892 No Longer Active Gabrielle Marquez MA Active LATUDA 40 MG ORAL TABLET 1.5 tab by mouth in the afternoon LURASIDONE HCL 39558259200 Active Gabrielle Marquez MA Active LEVEMIR 100 UNIT/ML SUBCUTANEOUS SOLUTION 10 u at bedtime INSULIN DETEMIR 31217040765 Active Gabrielle Marquez MA Active TAMSULOSIN HCL 0.4 MG ORAL CAPSULE 2 every night for urine flow TAMSULOSIN HCL 43063223381 Active Gabrielle Marquez MA Active DIVALPROEX SODIUM 125 MG ORAL TABLET DELAYED RELEASE 1 tab each morning 02/17 DIVALPROEX SODIUM 11987857293 Active Gabrielle Marquez MA Active D 1000 TABLET 2 tab by mouth BID CHOLECALCIFEROL TABS 95161104381 Active Gabrielle Marquez MA Active ALIGN 4 MG ORAL CAPSULE 1 tab at hs PROBIOTIC PRODUCT 66842266297 Active Gabrielle Marquez MA Active CLONAZEPAM 1 MG ORAL TABLET 1 pill by mouth two times daily CLONAZEPAM 91070771539 Active Gabrielleadrienne Marquez MA Active FENOFIBRATE 160 MG ORAL TABLET Take 1 tablet by mouth daily FENOFIBRATE 42572040189 Active Mya Ledezma MA Active OCEAN NASAL SPRAY SOLUTION 2 sprays in both nostrils every 8 hours as needed for dry mucous membranes SALINE SOLN 62032763074 Active Mason Loredo MD Active BETHANECHOL CHLORIDE 25 MG ORAL TABLET Take 1 tablet mouth four times a day BETHANECHOL CHLORIDE 73904747745 Active Mason Loredo MD Active [facility] LUBRICANT EYE DROPS 0.4-0.3 % OPHTHALMIC SOLUTION POLYETHYL GLYCOL-PROPYL GLYCOL 32275646513 No Longer Active Mason Loredo MD Active TYLENOL 8 HOUR 650 MG ORAL TABLET EXTENDED RELEASE 1 tab QID prn ACETAMINOPHEN 86095017333 No Longer Active Mason Loredo MD Active TOPAMAX 25 MG ORAL TABLET 1 tab BID PRN TOPIRAMATE 31914098283 Active Mason Loredo MD Active TIMOPTIC OCUDOSE 0.5 % OPHTHALMIC SOLUTION instill one drop into both eyes q12H TIMOLOL MALEATE 25077499595 Active Mason Loredo MD Active TRAZODONE HCL 100 MG ORAL TABLET 1 every night to prevent headaches TRAZODONE HCL 08148918604 No Longer Active Mason Loredo MD Active TRAVATAN Z 0.004 % OPHTHALMIC SOLUTION 1 drop each eye daily 2017 TRAVOPROST 19019584302 No Longer Active Mason Loredo MD Active LATUDA 60 MG ORAL TABLET 1 tab daily LURASIDONE HCL 36360798404 No Longer Active Mason Loredo MD Active MORPHINE SULFATE ER 30 MG ORAL TABLET EXTENDED RELEASE Take one capsule BID MORPHINE SULFATE 48967421454 No Longer Active Mason Loredo MD Active TRUE METRIX BLOOD GLUCOSE TEST IN VITRO STRIP Check blood sugars 3x/day. 2015 GLUCOSE BLOOD 72185282559 No Longer Active Mason Loredo MD Active TRUEPLUS LANCETS 30G 3x a day LANCETS 92286237214 No Longer Active Mason Loredo MD Active MYLANTA GAS RELIEF MAXIMUM STR 125 MG ORAL CAPSULE 30cc every 4 hours prn SIMETHICONE 95027688957 No Longer Active Mason Loredo MD Active IMODIUM A-D 2 MG ORAL TABLET 1 tab QID as needed LOPERAMIDE HCL 32253066695 No Longer Active Mason Loredo MD Active FLONASE ALLERGY RELIEF 50 MCG/ACT NASAL SUSPENSION One spray each nostril BID x 1 week then daily FLUTICASONE PROPIONATE 39952522483 No Longer Active Mason Loredo MD Active FLUVOXAMINE MALEATE 100 MG ORAL TABLET take one tab every AM et HS, and take 1 /2 tab at noon FLUVOXAMINE MALEATE 18990011053 No Longer Active Mason Loredo MD Active BD PEN NEEDLE MINI U/F 31G X 5 MM 4 a day INSULIN PEN NEEDLE 79821290275 No Longer Active Mason Loredo MD Active AMITIZA 24 MCG ORAL CAPSULE Take one capsule BID for constipation LUBIPROSTONE 10299865679 No Longer Active Mason Loredo MD Active TRUEPLUS LANCETS 30G 3 a day LANCETS 55676858833 No Longer Active Mason Loredo MD Active CORICIDIN HBP CONGESTION/COUGH 10-200 MG ORAL CAPSULE Take as directed on box as needed for cold/flu symptoms DEXTROMETHORPHAN- GUAIFENESIN 45377355470 No Longer Active Mason Loredo MD Active OMEGA-3 300 MG ORAL CAPSULE 4 caps by mouth daily OMEGA-3 FATTY ACIDS 22660106106 No Longer Active Mason Loredo MD Active HUMALOG KWIKPEN 100 UNIT/ML SUBCUTANEOUS SOLUTION PEN-INJECTOR sliding scale if needed INSULIN LISPRO (HUMAN) 73489033679 No Longer Active Mason Loredo MD Active TRUETEST TEST IN VITRO STRIP check blood sugars 3x/day GLUCOSE BLOOD 98368911671 No Longer Active Mason Loredo MD Active ALFUZOSIN HCL ER 10 MG ORAL TABLET EXTENDED RELEASE 24 HOUR 1 tablet daily ALFUZOSIN HCL 37008384417 No Longer Active Mason Loredo MD Active BD INSULIN SYRINGE 28G X 1/2" 1 ML 1 four times per day INSULIN SYRINGE-NEEDLE U-100 28366693618 No Longer Active Mason Loredo MD Active LEVEMIR FLEXTOUCH 100 UNIT/ML SUBCUTANEOUS SOLUTION PEN-INJECTOR 60 units SQ each evening, for diabetes INSULIN DETEMIR 93796994677 No Longer Active Mason Loredo MD Active LACTULOSE 20 GM/30ML ORAL SOLUTION give 30 Ml PO BID PRN LACTULOSE 74054983554 Active Mason Loredo MD Active COLACE 100 MG ORAL CAPSULE 1 tab BID PRN DOCUSATE SODIUM 42900443077 Active Mason Loredo MD Active LATANOPROST 0.005 % OPHTHALMIC SOLUTION instill 1 drop in both eyes at bed time LATANOPROST 97450956207 Active Mason Loredo MD Active AMARYL 2 MG ORAL TABLET give 2.5 tabs PO daily GLIMEPIRIDE 82907135297 Active Mason Loredo MD Active MIRALAX ORAL POWDER 17g by mouth q12h, for constipation POLYETHYLENE GLYCOL 3350 64464999095 Active Mason Loredo MD Active IBUPROFEN 400 MG ORAL TABLET 1 tab Q6H PRN IBUPROFEN 99207829190 Active Mason Loredo MD Active EFFEXOR XR 37.5 MG ORAL CAPSULE EXTENDED RELEASE 24 HOUR Take one by mouth daily VENLAFAXINE HCL 62205038278 Active Mima Erazo APRN Active FLUVOXAMINE MALEATE 50 MG ORAL TABLET 1 tab by mouth daily 04/01 FLUVOXAMINE MALEATE 59541738521 No Longer Active Mima Erazo APRN Active TRUE METRIX METER w/Device KIT Check blood sugars 3x/day BLOOD GLUCOSE MONITORING SUPPL 59280812111 Active Marvel MARROQUIN Active LATUDA 60 MG ORAL TABLET Take one by mouth daily LURASIDONE HCL 58718875679 No Longer Active Mima Erazo APRN Active [facility] MILK OF MAGNESIA 400 MG/5ML ORAL SUSPENSION 30ml by mouth bid prn MAGNESIUM HYDROXIDE 44849568903 Active Mason Loredo MD Active TRAVATAN Z 0.004 % OPHTHALMIC SOLUTION 1 gtt each eye daily TRAVOPROST 05030396000 No Longer Active Mason Loredo MD Active LISINOPRIL 20 MG ORAL TABLET 1 BID LISINOPRIL 59665818930 No Longer Active Mason Loredo MD Active ZOLPIDEM TARTRATE 10 MG ORAL TABLET take at bedtime ZOLPIDEM TARTRATE 18771460846 No Longer Active Mason Loredo MD Active HYDROCODONE-ACETAMINOPHEN 5-325 MG ORAL TABLET 2 tabs by mouth three times daily for pain HYDROCODONE-ACETAMINOPHEN 83905956246 No Longer Active Mason oLredo MD Active ZOFRAN 4 MG ORAL TABLET 1 po q4hr PRN Nausea ONDANSETRON HCL 26490666092 No Longer Active Mason Loredo MD Active LOMOTIL 2.5-0.025 MG ORAL TABLET take 1-2 tabs PO after each stool, no more than 8 in 24 hours DIPHENOXYLATE-ATROPINE 32978723361 No Longer Active Mason Loredo MD Active COLACE 100 MG ORAL CAPSULE 1 pill by mouth twice daily, for constipation 2014 DOCUSATE SODIUM 21806543367 No Longer Active Mima Erazo APRN Active TOLTERODINE TARTRATE 2 MG ORAL TABLET 1 pill twice daily, for bladder TOLTERODINE TARTRATE 27813573686 No Longer Active Vanessa Hickey MD Active AMITIZA 24 MCG ORAL CAPSULE Take one capsule BID for constipation. LUBIPROSTONE 10547489153 No Longer Active Vanessa Hickey MD Active METOPROLOL SUCCINATE ER 100 MG ORAL TABLET EXTENDED RELEASE 24 HOUR 1 by mouth daily for blood pressure METOPROLOL SUCCINATE 16018568969 No Longer Active Grace Azam RMA Active METFORMIN HCL ER 500 MG ORAL TABLET EXTENDED RELEASE 24 HOUR Take three tablets by mouth everyday METFORMIN HCL 94483709572 No Longer Active Grace Azam RMA Active LOVAZA 1 GM ORAL CAPSULE 4 daily (for triglycerides) [id number] ETHYL ESTERS 44486676056 No Longer Active Grace Azam RMA Active TRAZODONE HCL 100 MG ORAL TABLET 1 tab by mouth for sleep TRAZODONE HCL 03107839927 No Longer Active Grace Azam RMA Active NOVOFINE 32G X 6 MM use one four times per day INSULIN PEN NEEDLE 32225689957 No Longer Active Grace Azam RMA Active BACTROBAN 2 % EXTERNAL CREAM Apply to affected area BID for up to 10 days MUPIROCIN CALCIUM 63277942985 No Longer Active Grace Azam RMA Active KEFLEX 500 MG ORAL CAPSULE 1 po BID x 7 days CEPHALEXIN 76533730703 No Longer Active Cherelle Avila APRN Active FLUVOXAMINE MALEATE 100 MG ORAL TABLET Take one (1) tablet by mouth am, 1/2 at noon FLUVOXAMINE MALEATE 54713179669 No Longer Active Mima Erazo APRN Active FLUVOXAMINE MALEATE 100 MG ORAL TABLET Take 1/2 tab at noon 03/04 FLUVOXAMINE MALEATE 47922584566 No Longer Active Cherelle Avila APRN Active ACCU-CHEK ROSA DEVICE Use device to check blood sugars BLOOD GLUCOSE MONITORING SUPPL 99329033555 No Longer Active Mallashondaeh Ziglari LOPEZ Active ACCU-CHEK ROSA IN VITRO STRIP use strips with device to check blood sugars 3 times daily GLUCOSE BLOOD 42658930757 No Longer Active Marvel MENDOZAP Active VERAPAMIL HCL ER 180 MG ORAL TABLET EXTENDED RELEASE 1 pill by mouth twice daily, for migraine prevention VERAPAMIL HCL 34411828135 Active Mima Erazo APRN Active CYCLOBENZAPRINE HCL 10 MG ORAL TABLET 1 tablet by mouth three times daily, scheduled CYCLOBENZAPRINE HCL 20942219298 No Longer Active Alina Castaneda MD PhD Active HUMALOG 100 UNIT/ML SUBCUTANEOUS SOLUTION Take 20 units with breakfast, 10u with lunch and suppetr. INSULIN LISPRO (HUMAN) 45433686618 No Longer Active Alina Castaneda MD PhD Active TRUETEST TEST IN VITRO STRIP check sugars 4x/day GLUCOSE BLOOD 60359666222 No Longer Active Alina Castaneda MD PhD Active MORPHINE SULFATE 30 MG ORAL TABLET 1 pill by mouth twice daily, for pain 2013 MORPHINE SULFATE 60712475681 No Longer Active Mason Loredo MD Active ACYCLOVIR 400 MG ORAL TABLET 1 pill three times daily x 5 days, for cold sore outbreak ACYCLOVIR 44973735426 No Longer Active Alina Castaneda MD PhD Active PENICILLIN V POTASSIUM 500 MG ORAL TABLET 1 pill by mouth three times daily PENICILLIN V POTASSIUM 12926299399 No Longer Active Alina Castaneda MD PhD Active UROXATRAL 10 MG ORAL TABLET EXTENDED RELEASE 24 HOUR Take 1 tablet by mouth daily ALFUZOSIN HCL 20146612485 No Longer Active Alina Castaneda MD PhD Active THIOTHIXENE 5 MG ORAL CAPSULE by mouth twice a day THIOTHIXENE 11202700318 No Longer Active Alina Castaneda MD PhD Active ZYPREXA 7.5 MG ORAL TABLET 1 at HS OLANZAPINE 05515407735 No Longer Active Alina Castaneda MD PhD Active DETROL LA 4 MG ORAL CAPSULE EXTENDED RELEASE 24 HOUR Take 1 tablet by mouth daily TOLTERODINE TARTRATE 05562510240 No Longer Active Alina Castaneda MD PhD Active TERESE CONTOUR TEST IN VITRO STRIP monitor blood sugars 3x/day GLUCOSE BLOOD 11606700747 No Longer Active Alina Castaneda MD PhD Active EQL TRUETEST TEST IN VITRO STRIP Test blood sugar TID GLUCOSE BLOOD 23636824069 No Longer Active Alina Castaneda MD PhD Active FLUTICASONE PROPIONATE 50 MCG/ACT NASAL SUSPENSION 2 sprays each nostril qDay x 30 days FLUTICASONE PROPIONATE 67043366959 No Longer Active Alina Castaneda MD PhD Active IBUPROFEN 200 MG ORAL TABLET 1 Q 6 hr. PRN IBUPROFEN 99917513940 No Longer Active Alina Castaneda MD PhD Active NIACIN ER 500 MG ORAL TABLET EXTENDED RELEASE 4 qHS (for triglycerides) 01/13 NIACIN 96847171330 No Longer Active Alina Castaneda MD PhD Active SAPHRIS 5 MG SUBLINGUAL TABLET SUBLINGUAL by mouth twice a day ASENAPINE MALEATE 17236590659 No Longer Active Maljohn Ziglestela MARROQUIN Active ACETAMINOPHEN 500 MG ORAL TABLET 2 Q 6 hr. PRN ACETAMINOPHEN 85337351440 No Longer Active Maljohn Mackenzieglari CARGOMAN Active ORPHENADRINE CITRATE ER 100 MG ORAL TABLET EXTENDED RELEASE 12 HOUR 1 every 12 hr. as needed ORPHENADRINE CITRATE 05347582048 No Longer Active Alina Castaneda MD PhD Active NIACIN ER 500 MG ORAL TABLET EXTENDED RELEASE 2 qHS NIACIN 48963283247 No Longer Active Alina Castaneda MD PhD Active AMOXICILLIN 500 MG ORAL CAPSULE 2 po BID x 10 days AMOXICILLIN 10679415647 No Longer Active Alina Castaneda MD PhD Active HYDROCODONE-ACETAMINOPHEN 7.5-325 MG ORAL TABLET 1 four times a day as needed for pain HYDROCODONE-ACETAMINOPHEN 98320998455 No Longer Active Alina Castaneda MD PhD Active DOXEPIN HCL 10 MG ORAL CAPSULE Take 1 tablet by mouth daily DOXEPIN HCL 55009328523 No Longer Active Salina ROJAS Active NAVANE 10 MG CAPS 1/2 tablet twice a day THIOTHIXENE No Longer Active Salina ROJAS Active CYCLOBENZAPRINE HCL 10 MG ORAL TABLET 1/2 tablet by mouth every 8 hours as needed for muscle spasms CYCLOBENZAPRINE HCL 63805362710 No Longer Active Alina Castaneda MD PhD Active BACTROBAN 2 % EXTERNAL CREAM apply to ear and nose twice daily MUPIROCIN CALCIUM 09620089028 No Longer Active Alina Castaneda MD PhD Active HYDROCODONE-ACETAMINOPHEN 5-325 MG ORAL TABLET take one tablet by mouth every four hours as needed for pain HYDROCODONE-ACETAMINOPHEN 55419419152 No Longer Active Alina Castaneda MD PhD Active ZYPREXA 5 MG ORAL TABLET take one tablet by mouth every evening OLANZAPINE 94462447634 No Longer Active Alina Castaneda MD PhD Active ALBUTEROL SULFATE (2.5 MG/3ML) 0.083% INHALATION NEBULIZATION SOLUTION one vial per nebulizer TID and PRN cough/soa ALBUTEROL SULFATE 14739599552 No Longer Active Alina Castaneda MD PhD Active GUAIFENESIN ER 600 MG ORAL TABLET EXTENDED RELEASE 12 HOUR 1 tablet by mouth twice daily if needed for cough GUAIFENESIN 32062495130 No Longer Active Marvel MARROQUIN Active AZITHROMYCIN 500 MG INTRAVENOUS SOLUTION RECONSTITUTED 1 po q day AZITHROMYCIN 04141853772 No Longer Active Alina Castaneda MD PhD Active PROMETHAZINE-CODEINE 6.25-10 MG/5ML ORAL SYRUP 1 tsp po q 6 hours prn cough PROMETHAZINE-CODEINE 89559863269 No Longer Active Alina Castaneda MD PhD Active CEFDINIR 300 MG ORAL CAPSULE by mouth twice a day CEFDINIR 66740098977 No Longer Active Alina Castaneda MD PhD Active METFORMIN HCL ER 500 MG ORAL TABLET EXTENDED RELEASE 24 HOUR Take 3 tablets by mouth everyday METFORMIN HCL 44969535011 No Longer Active Alina Castaneda MD PhD Active LEVEMIR 100 UNIT/ML SUBCUTANEOUS SOLUTION 90 units SQ qHS INSULIN DETEMIR 13813183848 No Longer Active Marvel MARROQUIN Active TOPROL XL 100 MG ORAL TABLET EXTENDED RELEASE 24 HOUR 1 @ HS METOPROLOL SUCCINATE 27772138932 No Longer Active Marvel MARROQUIN Active ALLOPURINOL 300 MG ORAL TABLET Take one by mouth daily ALLOPURINOL 76553776283 Active Mima Erazo TERRAZZO HELPER Active ZYPREXA 10 MG ORAL TABLET Take one by mouth daily OLANZAPINE 37158201122 No Longer Active Alina Castaneda MD PhD Active NOVOLOG 100 UNIT/ML SUBCUTANEOUS SOLUTION 40 units with every meal INSULIN ASPART 30459875725 No Longer Active Alina Castaneda MD PhD Active VERAPAMIL HCL ER 120 MG ORAL TABLET EXTENDED RELEASE 1 qPM 09/08 VERAPAMIL HCL 13255535795 No Longer Active Salina ROJAS Active ZYPREXA 15 MG ORAL TABLET Take 1 tablet by mouth daily OLANZAPINE 24141772290 No Longer Active Marvel MARROQUIN Active ALBUTEROL SULFATE (2.5 MG/3ML) 0.083% INHALATION NEBULIZATION SOLUTION 1 neb tid and prn cough ALBUTEROL SULFATE 40049096500 No Longer Active Alina Castaneda MD PhD Active LANTUS 100 UNIT/ML SUBCUTANEOUS SOLUTION 60 units sq q hs INSULIN GLARGINE 67464378599 No Longer Active CRYSTAL Suarez Active ALBUTEROL SULFATE (2.5 MG/3ML) 0.083% INHALATION NEBULIZATION SOLUTION 1 neb tid and prn cough ALBUTEROL SULFATE (2.5 MG/3ML) 0.083% INHALATION NEBULIZATION SOLUTION 853052 ALBUTEROL SULFATE Inactive ZYPREXA 15 MG ORAL TABLET Take 1 tablet by mouth daily ZYPREXA 15 MG ORAL TABLET 519118 OLANZAPINE Inactive VERAPAMIL HCL ER 120 MG ORAL TABLET EXTENDED RELEASE 1 qPM 09/08 VERAPAMIL HCL ER 120 MG ORAL TABLET EXTENDED RELEASE VERAPAMIL HCL Inactive ZYPREXA 10 MG ORAL TABLET Take one by mouth daily ZYPREXA 10 MG ORAL TABLET 542050 OLANZAPINE Inactive TOPROL XL 100 MG ORAL TABLET EXTENDED RELEASE 24 HOUR 1 @ HS TOPROL XL 100 MG ORAL TABLET EXTENDED RELEASE 24 HOUR METOPROLOL SUCCINATE Inactive LEVEMIR 100 UNIT/ML SUBCUTANEOUS SOLUTION 90 units SQ qHS 2012/08 /20 LEVEMIR 100 UNIT/ML SUBCUTANEOUS SOLUTION INSULIN DETEMIR Inactive PROMETHAZINE-CODEINE 6.25-10 MG/5ML ORAL SYRUP 1 tsp po q 6 hours prn cough PROMETHAZINE-CODEINE 6.25-10 MG/5ML ORAL SYRUP 232155 PROMETHAZINE-CODEINE Inactive GUAIFENESIN ER 600 MG ORAL TABLET EXTENDED RELEASE 12 HOUR 1 tablet by mouth twice daily if needed for cough GUAIFENESIN ER 600 MG ORAL TABLET EXTENDED RELEASE 12 HOUR GUAIFENESIN Inactive ALBUTEROL SULFATE (2.5 MG/3ML) 0.083% INHALATION NEBULIZATION SOLUTION one vial per nebulizer TID and PRN cough/soa ALBUTEROL SULFATE (2.5 MG/3ML) 0.083% INHALATION NEBULIZATION SOLUTION 244276 ALBUTEROL SULFATE Inactive ZYPREXA 5 MG ORAL TABLET take one tablet by mouth every evening ZYPREXA 5 MG ORAL TABLET 688058 OLANZAPINE Inactive HYDROCODONE-ACETAMINOPHEN 5-325 MG ORAL TABLET take one tablet by mouth every four hours as needed for pain HYDROCODONE-ACETAMINOPHEN 5-325 MG ORAL TABLET 703488 HYDROCODONE-ACETAMINOPHEN Inactive BACTROBAN 2 % EXTERNAL CREAM apply to ear and nose twice daily BACTROBAN 2 % EXTERNAL CREAM 912158 MUPIROCIN CALCIUM Inactive CYCLOBENZAPRINE HCL 10 MG ORAL TABLET 1/2 tablet by mouth every 8 hours as needed for muscle spasms CYCLOBENZAPRINE HCL 10 MG ORAL TABLET 500879 CYCLOBENZAPRINE HCL Inactive NAVANE 10 MG CAPS 1/2 tablet twice a day NAVANE 10 MG CAPS THIOTHIXENE Inactive DOXEPIN HCL 10 MG ORAL CAPSULE Take 1 tablet by mouth daily DOXEPIN HCL 10 MG ORAL CAPSULE 6607443 DOXEPIN HCL Inactive HYDROCODONE-ACETAMINOPHEN 7.5-325 MG ORAL TABLET 1 four times a day as needed for pain HYDROCODONE-ACETAMINOPHEN 7.5-325 MG ORAL TABLET 165990 HYDROCODONE-ACETAMINOPHEN Inactive NIACIN ER 500 MG ORAL [...] hr. PRN ACETAMINOPHEN 500 MG ORAL TABLET 192689 ACETAMINOPHEN Inactive SAPHRIS 5 MG SUBLINGUAL TABLET SUBLINGUAL by mouth twice a day SAPHRIS 5 MG SUBLINGUAL TABLET SUBLINGUAL ASENAPINE MALEATE Inactive NIACIN ER 500 MG ORAL TABLET EXTENDED RELEASE 4 qHS (for triglycerides) 01/13 NIACIN ER 500 MG ORAL TABLET EXTENDED RELEASE NIACIN Inactive IBUPROFEN 200 MG ORAL TABLET 1 Q 6 hr. PRN IBUPROFEN 200 MG ORAL TABLET 800480 IBUPROFEN Inactive FLUTICASONE PROPIONATE 50 MCG/ACT NASAL SUSPENSION 2 sprays each nostril qDay x 30 days FLUTICASONE PROPIONATE 50 MCG/ACT NASAL SUSPENSION 2229217 FLUTICASONE PROPIONATE Inactive EQL TRUETEST TEST IN [...] at HS ZYPREXA 7.5 MG ORAL TABLET 987869 OLANZAPINE Inactive THIOTHIXENE 5 MG ORAL CAPSULE by mouth twice a day THIOTHIXENE 5 MG ORAL CAPSULE 099403 THIOTHIXENE Inactive UROXATRAL 10 MG ORAL TABLET EXTENDED RELEASE 24 HOUR Take 1 tablet by mouth daily UROXATRAL 10 MG ORAL TABLET EXTENDED RELEASE 24 HOUR ALFUZOSIN HCL Inactive ACYCLOVIR 400 MG ORAL TABLET 1 pill three times daily x 5 days, for cold sore outbreak ACYCLOVIR 400 MG ORAL TABLET 857388 ACYCLOVIR Inactive TRUETEST TEST IN VITRO STRIP check sugars 4x/day TRUETEST TEST IN VITRO STRIP GLUCOSE BLOOD Inactive HUMALOG 100 UNIT/ML SUBCUTANEOUS SOLUTION Take 20 units with breakfast, 10u with lunch and suppetr. HUMALOG 100 UNIT/ML SUBCUTANEOUS SOLUTION INSULIN LISPRO (HUMAN) Inactive CYCLOBENZAPRINE HCL 10 MG ORAL TABLET 1 tablet by mouth three times daily, scheduled CYCLOBENZAPRINE HCL 10 MG ORAL TABLET 752974 CYCLOBENZAPRINE HCL Inactive ACCU-CHEK ROSA IN VITRO STRIP use strips with device to check blood sugars 3 times daily ACCU-CHEK ROSA IN VITRO STRIP GLUCOSE BLOOD Inactive ACCU-CHEK ROSA DEVICE Use device to check blood sugars ACCU-CHEK ROSA DEVICE BLOOD GLUCOSE MONITORING SUPPL Inactive FLUVOXAMINE MALEATE 100 MG ORAL TABLET Take 1/2 tab at noon 03/04 FLUVOXAMINE MALEATE 100 MG ORAL TABLET 964237 FLUVOXAMINE MALEATE Inactive FLUVOXAMINE MALEATE 100 MG ORAL TABLET Take one (1) tablet by mouth am, 1/2 at noon FLUVOXAMINE MALEATE 100 MG ORAL TABLET 212544 FLUVOXAMINE MALEATE Inactive BACTROBAN 2 % EXTERNAL CREAM Apply to affected area BID for up to 10 days BACTROBAN 2 % EXTERNAL CREAM 912127 MUPIROCIN CALCIUM Inactive NOVOFINE 32G X 6 MM use one four times per day NOVOFINE 32G X 6 MM INSULIN PEN NEEDLE Inactive TRAZODONE HCL 100 MG ORAL TABLET 1 tab by mouth for sleep TRAZODONE HCL 100 MG ORAL TABLET 726427 TRAZODONE HCL Inactive LOVAZA 1 GM ORAL CAPSULE 4 daily (for triglycerides) LOVAZA 1 GM ORAL CAPSULE 316186 [id number]-[id number] ETHYL ESTERS Inactive METFORMIN HCL ER 500 [...] bladder TOLTERODINE TARTRATE 2 MG ORAL TABLET 111786 TOLTERODINE TARTRATE Inactive COLACE 100 MG ORAL CAPSULE 1 pill by mouth twice daily, for constipation 2014 COLACE 100 MG ORAL CAPSULE 7984075 DOCUSATE SODIUM Inactive LOMOTIL 2.5-0.025 MG ORAL TABLET take 1-2 tabs PO after each stool, no more than 8 in 24 hours LOMOTIL 2.5-0.025 MG ORAL TABLET 9425220 DIPHENOXYLATE-ATROPINE Inactive ZOFRAN 4 MG ORAL TABLET 1 po q4hr PRN Nausea ZOFRAN 4 MG ORAL TABLET 180700 ONDANSETRON HCL Inactive HYDROCODONE-ACETAMINOPHEN 5-325 MG ORAL TABLET 2 tabs by mouth three times daily for pain HYDROCODONE-ACETAMINOPHEN 5-325 MG ORAL TABLET 285604 HYDROCODONE-ACETAMINOPHEN Inactive ZOLPIDEM TARTRATE 10 MG ORAL TABLET take at bedtime ZOLPIDEM TARTRATE 10 MG ORAL TABLET 079935 ZOLPIDEM TARTRATE Inactive LISINOPRIL 20 MG ORAL TABLET 1 BID LISINOPRIL 20 MG ORAL TABLET 964266 LISINOPRIL Inactive TRAVATAN Z 0.004 % OPHTHALMIC SOLUTION 1 gtt each eye daily TRAVATAN Z 0.004 % OPHTHALMIC SOLUTION TRAVOPROST Inactive LATUDA 60 MG ORAL TABLET Take one by mouth daily LATUDA 60 MG ORAL TABLET LURASIDONE HCL Inactive FLUVOXAMINE MALEATE 50 MG ORAL TABLET 1 tab by mouth daily 04/01 FLUVOXAMINE MALEATE 50 MG ORAL TABLET 437559 FLUVOXAMINE MALEATE Inactive LEVEMIR FLEXTOUCH 100 UNIT/ML [...] 30G 3 a day TRUEPLUS LANCETS 30G 88761491800 LANCETS Inactive AMITIZA 24 MCG ORAL CAPSULE Take one capsule BID for constipation AMITIZA 24 MCG ORAL CAPSULE LUBIPROSTONE Inactive BD PEN NEEDLE MINI U/F 31G X 5 MM 4 a day BD PEN NEEDLE MINI U/F 31G X 5 MM INSULIN PEN NEEDLE Inactive FLUVOXAMINE MALEATE 100 MG ORAL TABLET take one tab every AM et , and take 1 /2 tab at noon FLUVOXAMINE MALEATE 100 MG ORAL TABLET 192078 FLUVOXAMINE MALEATE Inactive FLONASE ALLERGY RELIEF 50 MCG/ACT NASAL SUSPENSION One spray each nostril BID x 1 week then daily FLONASE ALLERGY RELIEF 50 MCG/ACT NASAL SUSPENSION 9916783 FLUTICASONE PROPIONATE Inactive IMODIUM A-D 2 MG ORAL TABLET 1 tab QID as needed IMODIUM A-D 2 MG ORAL TABLET 762882 LOPERAMIDE HCL Inactive MYLANTA GAS RELIEF MAXIMUM STR 125 MG ORAL CAPSULE 30cc every 4 hours prn MYLANTA GAS RELIEF MAXIMUM STR 125 MG ORAL CAPSULE SIMETHICONE Inactive TRUEPLUS LANCETS 30G 3x a day TRUEPLUS LANCETS 30G 87601555321 LANCETS Inactive TRUE METRIX BLOOD GLUCOSE TEST [...] headaches TRAZODONE HCL 100 MG ORAL TABLET 677123 TRAZODONE HCL Inactive TYLENOL 8 HOUR 650 [...] evening TAMSULOSIN HCL 0.4 MG ORAL CAPSULE 167892 TAMSULOSIN HCL Inactive [facility] MELATONIN 3 MG ORAL TABLET give 1 tab by mouth at HS [facility] MELATONIN 3 MG ORAL TABLET 423585 MELATONIN Inactive CEFDINIR 300 MG ORAL CAPSULE by mouth twice a day CEFDINIR 300 MG ORAL CAPSULE 790446 CEFDINIR Inactive AZITHROMYCIN 500 MG INTRAVENOUS SOLUTION RECONSTITUTED 1 po q day AZITHROMYCIN 500 MG INTRAVENOUS SOLUTION RECONSTITUTED [id number] AZITHROMYCIN Inactive AMOXICILLIN 500 MG ORAL CAPSULE 2 po BID x 10 days AMOXICILLIN 500 MG ORAL CAPSULE 347240 AMOXICILLIN Inactive PENICILLIN V POTASSIUM 500 MG ORAL TABLET 1 pill by mouth three times daily PENICILLIN V POTASSIUM 500 MG ORAL TABLET 532604 PENICILLIN V POTASSIUM Inactive KEFLEX 500 MG ORAL CAPSULE 1 po BID x 7 days KEFLEX 500 MG ORAL CAPSULE 889622 CEPHALEXIN Inactive Immunizations Vaccine Administration Date Value [...] Fluvirin, Fluarix, Agriflu(>=18 yo)) Fluzone (>3 yrs.) [XYZ713] Influenza, seasonal, injectable pneumococcal immunization administered Pneumovax 23 [CVX33] pneumococcal polysaccharide vaccine, 23 valent Vital Signs Date Name Value Unit Range Description blood pressure, diastolic, repeated by physician 83 [...] ... - Chemistry sodium, serum 135 mmol/L 172-086 7686/08/22 carbon dioxide, venous blood 28.4 mmol/L 21.0-32.0 [...] mg/g {creat} 0-29 cholesterol, serum 263 mg/dL 425-474 4994/08/22 triglyceride, serum, fasting 1312 mg/dL 30-200 HDL [...] ordered Encounters Code Encounter Date Provider Facility CPT-31940 Level 3 Est. Patient 09:12:14 [employer] Mima [facility]razo [facility] CPT-64084 Level 3 Est. Patient 16:52:51 CDT Vanessa Hickey MD [facility] CPT-10300 Level 3 Est. Patient 17:40:[address] [facility] CPT-60844 Level 3 Est. Patient 14:34:52 CDT Vanessa Hickey MD [facility]-27930 Level 3 Est. Patient 16:27:51 CDT Mima Erazo [facility]-22681 Level 3 Est. Patient 14:39:00 [employer] Vanessa Hickey MD [facility]20683 Level 2 Est. Patient 18:43:34 CDT Mima Erazo [facility] CPT-59038 Level 3 Est. Patient 16:22:09 CDT Cherelle Avila [facility]-93365 Level 4 Est. Patient 17:55:14 CDT Mima Erazo [facility]-94127 Level 2 Est. Patient 17:13:21 CDT Alina Castaneda MD [facility]81135 Level 3 Est. Patient 14:46:15 CDT Vanessa Hickey MD [facility]35216 Level 3 Est. Patient 09:34:56 CDT Alina Castaneda MD [facility]81824 Level 3 Est. Patient 21:40:19 CDT Mima Erazo [facility]-75754 Level 3 Est. Patient 09:26:40 CDT Marvel [facility]01891 Level 3 Est. Patient 12:36:43 CDT Vanessa Hickey MD [facility]33598 Level 3 Est. Patient 12:57:49 CDT Vanessa Hickey MD [facility]76207 Level 3 Est. Patient 00:28:25 CDT Alina Castaneda MD [facility]91143 Level 2 Est. Patient 12:52:14 CDT Alina Castaneda MD [facility]-02611 Level 3 Est. Patient 11:51:18 [employer] Alina Castaneda MD [facility]-89311 Level 3 Est. Patient 10:09:22 [employer] Alina Castaneda MD [facility]-37867 Level 3 Est. Patient 14:36:[address] [facility]-52976 Level 3 Est. Patient 13:34:47 [employer] Alina Castaneda MD [facility]60333 Level 3 Est. Patient 19:52:08 [employer]OR Alina Castaneda MD [facility]73542 Level 3 Est. Patient 10:01:51 [facility] [employer] [facility]-69648 Level 3 Est. Patient 21:54:06 CDT Vanessa Hickey MD [facility]-39808 Level 3 Est. Patient 08:54:46 CDT Alina Castaneda MD [facility]-42042 Level 3 Est. Patient 09:32:[address] [facility]-64274 Level 3 Est. Patient 12:02:49 CDT Alina Castaneda MD [facility]-24472 Level 3 Est. Patient 19:17:33 CDT Alina Castaneda MD [facility]-34608 Level 3 Est. Patient 13:19:[address] [facility]-32130 Level 3 Est. Patient 08:20:05 CDT Alina Castaneda MD [facility]65373 Level 3 Est. Patient 15:17:18 CDT Alina Castaneda MD [facility]11008 Level 3 Est. Patient 14:25:36 [employer] Marvel [facility] CPT-81476 Level 3 Est. Patient 10:09:15 [employer] DIRECTOR Marvel [facility]-12566 Level 3 Est. Patient 21:28:43 CDT Alina Castaneda MD [facility]-67800 Level 3 Est. Patient 15:20:[address] [facility]-51492 Level 4 Est. Patient 19:08:12 CDT Alina Castaneda MD [facility]-25740 Level 3 Est. Patient 15:06:39 [facility]T [facility] Level 4 Est. Patient 17:48:15 CDT Alina Castaneda MD [facility]-38462 Level 3 Est. Patient 14:53:49 CDT Alina Castaneda MD [facility]-32725 Level 3 Est. Patient 09:35:16 CDT Alina Castaneda MD [facility]-43200 Level 3 Est. Patient 12:23:22 CDT Alina Castaneda MD [facility]-92351 Level 3 Est. Patient 16:19:15 CDT Alina Castaneda MD [facility]-71427 Level 3 Est. Patient 21:39:56 [employer] Alina Castaneda MD [facility]-22203 Level 4 Est. Patient 14:12:56 [employer] Alina Castaneda MD [facility]-13138 Level 2 Est. Patient 15:34:57 [employer] Alina Castaneda MD [facility]-11259 Level 3 Est. Patient 12:17:04 [employer] Alina Castaneda MD [facility]-94214 Level 3 Est. Patient 09:18:18 [employer] DIRECTOR Marvel [facility]-90851 Level 2 Est. Patient 21:50:24 CDT Alina Castaneda MD [facility]03290 Level 3 Est. Patient 09:17:[address] [facility]-53735 Level 4 Est. Patient 18:54:02 CDT Alina Castaneda MD [facility]24470 Level 3 Est. Patient 10:47:10 CDT Alina Castaneda MD [facility]96139 Level 3 Est. Patient 09:22:[address] [facility]-00200 Level 3 Est. Patient 16:39:[address] [facility]-42901 Level 3 Est. Patient 16:05:16 CDT Alina Castaneda MD [facility]-51327 Level 3 Est. Patient 00:29:15 CDT Alina Castaneda MD [facility]91077 Level 3 Est. Patient 10:49:22 [employer] DIRECTOR [facility]-56062 Level 3 Est. Patient 21:30:19 [employer] Alina Castaneda MD [facility]40786 Level 4 Est. Patient 17:04:11 [employer] DIRECTOR Marvel [facility]-71066 Level 3 Est. Patient 15:34:11 [employer] DIRECTOR Maliheh Ziglari CARGOMAN [facility] CPT-91097 Level 2 Est. Patient 12:51:58 [employer] Alina Castaneda MD PhD [facility] CPT-85506 Level 3 Est. Patient 13:20:01 [employer] Alina Castaneda MD PhD [facility] CPT-41348 Level 3 Est. Patient 09:23:35 CDT Alina Castaneda MD PhD [facility] Procedures Code Procedure Name Date Entry Date Standard Description CPT-TCMM Transitional Care Mgmt-Moderate 12:32:19 CDT CPT-35062 Level 2 Skilled Nursing 09:01:11 CDT CPT-46632 HGBA1C - LAB USE ONLY 09:30:27 [employer] CPT-57329 BMP - LAB USE ONLY 09:30:27 [employer] CPT-83399 Venipuncture Draw Fee 09:30:26 [employer] CPT-TCMM Transitional Care Mgmt-Moderate 10:25:31 CDT CPT-54932 Bladder Scan 14:34:53 CDT CPT-34369 Bladder Scan 14:39:01 [employer] CPT-TCMM Transitional Care Mgmt-Moderate 10:30:19 [employer] CPT-58368 Bladder Scan 12:36:44 CDT CPT-44968 Bladder Scan 21:54:06 CDT CPT-G0008 Administration of Influenza Virus Vaccine 13:05:26 CDT CPT-04178 Fluzone Quadrivalent Intramuscular Suspension 0.5 ML 13: 05:26 CDT CPT-52915 Administration single or combination vaccine inc oral 11 :49:51 CDT CPT-00147 Pneumovax 11:49:51 CDT CPT-17840 Ribs unilateral 2V 12:37:22 [employer] CPT-63776 Chest 2V Frontal and Lat 17:15:26 CDT CPT-47474 Abx/Therapy Injection 18:54:02 CDT CPT-J0696 Rocephin 1000 mg (Ceftriaxone) 16:00:32 CDT CPT-95689 Chest 2V Frontal and Lat 15:26:45 CDT CPT-08833 Chest 2V Frontal and Lat 10:23:27 CDT CPT-35364 Venipuncture Draw Fee 10:11:00 CDT CPT-26712 Administration single or combination vaccine inc oral 11 :56:38 CDT CPT-02731 Influenza split virus > age 3 11:56:38 CDT CPT-20876 Venipuncture Draw Fee 08:49:54 [employer] CPT-43726 EKG Trac and Interp 17:54:19 [employer] DIRECTOR
--- OUTSIDE RECORDS SUMMARY | 2018-07-02 12:48 | XMS REPORT | Clinical Summary ---
Author Author Admin, TERELL Organization 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 Diabetes mellitus without mention of complication, type [...] Castaneda MD PhD CHEST PAIN ICD-786.50 Inactive Ailna Castaneda MD PhD FH STROKE ICD-V17.1 Inactive [...] 1 tab by mouth at HS MELATONIN 76722072133 No Longer Active Gabrielle Marquez MA Active SEROQUEL 25 MG ORAL TABLET 2 tabs PO QID QUETIAPINE FUMARATE 54566107035 Active Gabrielle Marquez MA Active SEROQUEL 100 MG ORAL TABLET 1 tab daily QUETIAPINE FUMARATE 65061281008 Active Gabrielle Marquez MA Active NOVOLOG FLEXPEN 100 UNIT/ML SUBCUTANEOUS SOLUTION PEN-INJECTOR sliding scale INSULIN ASPART 84626562171 Active Gabrielle Marquez MA Active METFORMIN HCL 1000 MG ORAL TABLET 1 tab by mouth BID METFORMIN HCL 71380897170 Active Gabirelle Marquez MA Active [facility] MELATONIN 3 MG ORAL TABLET 1 tab nightly MELATONIN 36686046067 Active Gabrielle Marquez MA Active TAMSULOSIN HCL 0.4 MG ORAL CAPSULE give 2 capsules PO each evening TAMSULOSIN HCL 61236801030 No Longer Active Gabrielle Marquez MA Active VITAMIN D 2000 UNIT ORAL CAPSULE Take one by mouth daily CHOLECALCIFEROL 39742667694 No Longer Active Gabrielle Marquez MA Active LATUDA 40 MG ORAL TABLET 1.5 tab by mouth in the afternoon LURASIDONE HCL 57619393125 Active Gabrielle Marquez MA Active LEVEMIR 100 UNIT/ML SUBCUTANEOUS SOLUTION 10 u at bedtime INSULIN DETEMIR 72489325807 Active Gabrielle Marquez MA Active TAMSULOSIN HCL 0.4 MG ORAL CAPSULE 2 every night for urine flow TAMSULOSIN HCL 05496454531 Active Gabrielle Marquez MA Active DIVALPROEX SODIUM 125 MG ORAL TABLET DELAYED RELEASE 1 tab each morning 02/17 DIVALPROEX SODIUM 64887014428 Active Gabrielle Marquez MA Active D 1000 TABLET 2 tab by mouth BID CHOLECALCIFEROL TABS 94812547687 Active Gabrielle Marquez MA Active ALIGN 4 MG ORAL CAPSULE 1 tab at hs PROBIOTIC PRODUCT 27292249826 Active Gabrielle Marquez MA Active CLONAZEPAM 1 MG ORAL TABLET 1 pill by mouth two times daily CLONAZEPAM 07594650736 Active Gabrielleadrienne Marquez MA Active FENOFIBRATE 160 MG ORAL TABLET Take 1 tablet by mouth daily FENOFIBRATE 63088222263 Active Mya Ledezma MA Active OCEAN NASAL SPRAY SOLUTION 2 sprays in both nostrils every 8 hours as needed for dry mucous membranes SALINE SOLN 24261020885 Active Mason Loredo MD Active BETHANECHOL CHLORIDE 25 MG ORAL TABLET Take 1 tablet mouth four times a day BETHANECHOL CHLORIDE 10203805833 Active Mason Loredo MD Active [facility] LUBRICANT EYE DROPS 0.4-0.3 % OPHTHALMIC SOLUTION POLYETHYL GLYCOL-PROPYL GLYCOL 83168206820 No Longer Active Mason Loredo MD Active TYLENOL 8 HOUR 650 MG ORAL TABLET EXTENDED RELEASE 1 tab QID prn ACETAMINOPHEN 52896760261 No Longer Active Mason Loredo MD Active TOPAMAX 25 MG ORAL TABLET 1 tab BID PRN TOPIRAMATE 72305249808 Active Mason Loredo MD Active TIMOPTIC OCUDOSE 0.5 % OPHTHALMIC SOLUTION instill one drop into both eyes q12H TIMOLOL MALEATE 16381820739 Active Mason Loredo MD Active TRAZODONE HCL 100 MG ORAL TABLET 1 every night to prevent headaches TRAZODONE HCL 70110616190 No Longer Active Mason Loredo MD Active TRAVATAN Z 0.004 % OPHTHALMIC SOLUTION 1 drop each eye daily 2017 TRAVOPROST 59375471614 No Longer Active Mason Loredo MD Active LATUDA 60 MG ORAL TABLET 1 tab daily LURASIDONE HCL 02859866944 No Longer Active Mason Loredo MD Active MORPHINE SULFATE ER 30 MG ORAL TABLET EXTENDED RELEASE Take one capsule BID MORPHINE SULFATE 64883311339 No Longer Active Mason Loredo MD Active TRUE METRIX BLOOD GLUCOSE TEST IN VITRO STRIP Check blood sugars 3x/day. 2015 GLUCOSE BLOOD 16794760078 No Longer Active aMson Loredo MD Active TRUEPLUS LANCETS 30G 3x a day LANCETS 87780331700 No Longer Active Mason Loredo MD Active MYLANTA GAS RELIEF MAXIMUM STR 125 MG ORAL CAPSULE 30cc every 4 hours prn SIMETHICONE 11977736236 No Longer Active Mason Loredo MD Active IMODIUM A-D 2 MG ORAL TABLET 1 tab QID as needed LOPERAMIDE HCL 87043085053 No Longer Active Mason Loredo MD Active FLONASE ALLERGY RELIEF 50 MCG/ACT NASAL SUSPENSION One spray each nostril BID x 1 week then daily FLUTICASONE PROPIONATE 90909091118 No Longer Active Mason Loredo MD Active FLUVOXAMINE MALEATE 100 MG ORAL TABLET take one tab every AM et HS, and take 1 /2 tab at noon FLUVOXAMINE MALEATE 37932441317 No Longer Active Mason Loredo MD Active BD PEN NEEDLE MINI U/F 31G X 5 MM 4 a day INSULIN PEN NEEDLE 92484925991 No Longer Active Mason Loredo MD Active AMITIZA 24 MCG ORAL CAPSULE Take one capsule BID for constipation LUBIPROSTONE 46372027768 No Longer Active Mason Loredo MD Active TRUEPLUS LANCETS 30G 3 a day LANCETS 97993566703 No Longer Active Mason Loredo MD Active CORICIDIN HBP CONGESTION/COUGH 10-200 MG ORAL CAPSULE Take as directed on box as needed for cold/flu symptoms DEXTROMETHORPHAN- GUAIFENESIN 43631937572 No Longer Active Mason Loredo MD Active OMEGA-3 300 MG ORAL CAPSULE 4 caps by mouth daily OMEGA-3 FATTY ACIDS 53829248768 No Longer Active Mason Loredo MD Active HUMALOG KWIKPEN 100 UNIT/ML SUBCUTANEOUS SOLUTION PEN-INJECTOR sliding scale if needed INSULIN LISPRO (HUMAN) 18468549074 No Longer Active Mason Loredo MD Active TRUETEST TEST IN VITRO STRIP check blood sugars 3x/day GLUCOSE BLOOD 10405022377 No Longer Active Mason Loredo MD Active ALFUZOSIN HCL ER 10 MG ORAL TABLET EXTENDED RELEASE 24 HOUR 1 tablet daily ALFUZOSIN HCL 55560264799 No Longer Active Mason Loredo MD Active BD INSULIN SYRINGE 28G X 1/2" 1 ML 1 four times per day INSULIN SYRINGE-NEEDLE U-100 94943391788 No Longer Active Mason Loredo MD Active LEVEMIR FLEXTOUCH 100 UNIT/ML SUBCUTANEOUS SOLUTION PEN-INJECTOR 60 units SQ each evening, for diabetes INSULIN DETEMIR 96892176549 No Longer Active Mason Loredo MD Active LACTULOSE 20 GM/30ML ORAL SOLUTION give 30 Ml PO BID PRN LACTULOSE 81670378565 Active Mason Loredo MD Active COLACE 100 MG ORAL CAPSULE 1 tab BID PRN DOCUSATE SODIUM 46876826583 Active Mason Loredo MD Active LATANOPROST 0.005 % OPHTHALMIC SOLUTION instill 1 drop in both eyes at bed time LATANOPROST 48785996571 Active Mason Loredo MD Active AMARYL 2 MG ORAL TABLET give 2.5 tabs PO daily GLIMEPIRIDE 01524130599 Active Mason Loredo MD Active MIRALAX ORAL POWDER 17g by mouth q12h, for constipation POLYETHYLENE GLYCOL 3350 99794615592 Active Mason Loredo MD Active IBUPROFEN 400 MG ORAL TABLET 1 tab Q6H PRN IBUPROFEN 68831416836 Active Mason Loredo MD Active EFFEXOR XR 37.5 MG ORAL CAPSULE EXTENDED RELEASE 24 HOUR Take one by mouth daily VENLAFAXINE HCL 52258980876 Active Mima Erazo APRN Active FLUVOXAMINE MALEATE 50 MG ORAL TABLET 1 tab by mouth daily 04/01 FLUVOXAMINE MALEATE 77485947307 No Longer Active Mima Erazo APRN Active TRUE METRIX METER w/Device KIT Check blood sugars 3x/day BLOOD GLUCOSE MONITORING SUPPL 01070085826 Active Marvel MARROQUIN Active LATUDA 60 MG ORAL TABLET Take one by mouth daily LURASIDONE HCL 44756283476 No Longer Active Mima Erazo APRN Active [facility] MILK OF MAGNESIA 400 MG/5ML ORAL SUSPENSION 30ml by mouth bid prn MAGNESIUM HYDROXIDE 23452575265 Active Mason Loredo MD Active TRAVATAN Z 0.004 % OPHTHALMIC SOLUTION 1 gtt each eye daily TRAVOPROST 32864089239 No Longer Active Mason Loredo MD Active LISINOPRIL 20 MG ORAL TABLET 1 BID LISINOPRIL 47176131079 No Longer Active Mason Loredo MD Active ZOLPIDEM TARTRATE 10 MG ORAL TABLET take at bedtime ZOLPIDEM TARTRATE 26023636345 No Longer Active Mason Loredo MD Active HYDROCODONE-ACETAMINOPHEN 5-325 MG ORAL TABLET 2 tabs by mouth three times daily for pain HYDROCODONE-ACETAMINOPHEN 07324026981 No Longer Active Mason Loredo MD Active ZOFRAN 4 MG ORAL TABLET 1 po q4hr PRN Nausea ONDANSETRON HCL 08435372977 No Longer Active Mason Loredo MD Active LOMOTIL 2.5-0.025 MG ORAL TABLET take 1-2 tabs PO after each stool, no more than 8 in 24 hours DIPHENOXYLATE-ATROPINE 81736825757 No Longer Active Mason Loredo MD Active COLACE 100 MG ORAL CAPSULE 1 pill by mouth twice daily, for constipation 2014 DOCUSATE SODIUM 27350915787 No Longer Active Mima Erazo APRN Active TOLTERODINE TARTRATE 2 MG ORAL TABLET 1 pill twice daily, for bladder TOLTERODINE TARTRATE 10093490362 No Longer Active Vanessa Hickey MD Active AMITIZA 24 MCG ORAL CAPSULE Take one capsule BID for constipation. LUBIPROSTONE 59237250721 No Longer Active Vanessa Hickey MD Active METOPROLOL SUCCINATE ER 100 MG ORAL TABLET EXTENDED RELEASE 24 HOUR 1 by mouth daily for blood pressure METOPROLOL SUCCINATE 23007420715 No Longer Active Grace Azam RMA Active METFORMIN HCL ER 500 MG ORAL TABLET EXTENDED RELEASE 24 HOUR Take three tablets by mouth everyday METFORMIN HCL 96911314876 No Longer Active Grace Azam RMA Active LOVAZA 1 GM ORAL CAPSULE 4 daily (for triglycerides) PVMOJ-4-ESIL ETHYL ESTERS 24531011695 No Longer Active Grace Azam RMA Active TRAZODONE HCL 100 MG ORAL TABLET 1 tab by mouth for sleep TRAZODONE HCL 54775169420 No Longer Active Grace Azam RMA Active NOVOFINE 32G X 6 MM use one four times per day INSULIN PEN NEEDLE 32131458188 No Longer Active Grace Azam RMA Active BACTROBAN 2 % EXTERNAL CREAM Apply to affected area BID for up to 10 days MUPIROCIN CALCIUM 52596305036 No Longer Active Grace Azam RMA Active KEFLEX 500 MG ORAL CAPSULE 1 po BID x 7 days CEPHALEXIN 69088511698 No Longer Active Cherelle Avila APRN Active FLUVOXAMINE MALEATE 100 MG ORAL TABLET Take one (1) tablet by mouth am, 1/2 at noon FLUVOXAMINE MALEATE 41527416131 No Longer Active Mima Erazo APRN Active FLUVOXAMINE MALEATE 100 MG ORAL TABLET Take 1/2 tab at noon 03/04 FLUVOXAMINE MALEATE 44209342793 No Longer Active Cherelle Avila APRN Active ACCU-CHEK ROSA DEVICE Use device to check blood sugars BLOOD GLUCOSE MONITORING SUPPL 70354121279 No Longer Active Mallashondaeh Ziglari LOPEZ Active ACCU-CHEK ROSA IN VITRO STRIP use strips with device to check blood sugars 3 times daily GLUCOSE BLOOD 67511441957 No Longer Active Marvel MENDOZAP Active VERAPAMIL HCL ER 180 MG ORAL TABLET EXTENDED RELEASE 1 pill by mouth twice daily, for migraine prevention VERAPAMIL HCL 72627807591 Active Mima Erazo APRN Active CYCLOBENZAPRINE HCL 10 MG ORAL TABLET 1 tablet by mouth three times daily, scheduled CYCLOBENZAPRINE HCL 30419458877 No Longer Active Alina Castaneda MD PhD Active HUMALOG 100 UNIT/ML SUBCUTANEOUS SOLUTION Take 20 units with breakfast, 10u with lunch and suppetr. INSULIN LISPRO (HUMAN) 50722066201 No Longer Active Alina Castaneda MD PhD Active TRUETEST TEST IN VITRO STRIP check sugars 4x/day GLUCOSE BLOOD 62525805056 No Longer Active Alina Castaneda MD PhD Active MORPHINE SULFATE 30 MG ORAL TABLET 1 pill by mouth twice daily, for pain 2013 MORPHINE SULFATE 82668495504 No Longer Active Mason Loredo MD Active ACYCLOVIR 400 MG ORAL TABLET 1 pill three times daily x 5 days, for cold sore outbreak ACYCLOVIR 58396380414 No Longer Active Alina Castaneda MD PhD Active PENICILLIN V POTASSIUM 500 MG ORAL TABLET 1 pill by mouth three times daily PENICILLIN V POTASSIUM 89888212724 No Longer Active Alina Castaneda MD PhD Active UROXATRAL 10 MG ORAL TABLET EXTENDED RELEASE 24 HOUR Take 1 tablet by mouth daily ALFUZOSIN HCL 84330074994 No Longer Active Alina Castaneda MD PhD Active THIOTHIXENE 5 MG ORAL CAPSULE by mouth twice a day THIOTHIXENE 00826758908 No Longer Active Alina Castaneda MD PhD Active ZYPREXA 7.5 MG ORAL TABLET 1 at HS OLANZAPINE 67819250936 No Longer Active Alina Castaneda MD PhD Active DETROL LA 4 MG ORAL CAPSULE EXTENDED RELEASE 24 HOUR Take 1 tablet by mouth daily TOLTERODINE TARTRATE 76355846143 No Longer Active Alina Castaneda MD PhD Active TERESE CONTOUR TEST IN VITRO STRIP monitor blood sugars 3x/day GLUCOSE BLOOD 39381446915 No Longer Active Alina Castaneda MD PhD Active EQL TRUETEST TEST IN VITRO STRIP Test blood sugar TID GLUCOSE BLOOD 68824485267 No Longer Active Alina Castaneda MD PhD Active FLUTICASONE PROPIONATE 50 MCG/ACT NASAL SUSPENSION 2 sprays each nostril qDay x 30 days FLUTICASONE PROPIONATE 19196575677 No Longer Active Alina Castaneda MD PhD Active IBUPROFEN 200 MG ORAL TABLET 1 Q 6 hr. PRN IBUPROFEN 57664818290 No Longer Active Alina Castaneda MD PhD Active NIACIN ER 500 MG ORAL TABLET EXTENDED RELEASE 4 qHS (for triglycerides) 01/13 NIACIN 90918189625 No Longer Active Alina Castaneda MD PhD Active SAPHRIS 5 MG SUBLINGUAL TABLET SUBLINGUAL by mouth twice a day ASENAPINE MALEATE 99008252410 No Longer Active Maljohn Ziglestela MARROQUIN Active ACETAMINOPHEN 500 MG ORAL TABLET 2 Q 6 hr. PRN ACETAMINOPHEN 41866303778 No Longer Active Maljohn Mackenzieglari RESIDENTIAL SALES REP Active ORPHENADRINE CITRATE ER 100 MG ORAL TABLET EXTENDED RELEASE 12 HOUR 1 every 12 hr. as needed ORPHENADRINE CITRATE 68397045452 No Longer Active Alina Castaneda MD PhD Active NIACIN ER 500 MG ORAL TABLET EXTENDED RELEASE 2 qHS NIACIN 84492425365 No Longer Active Alina Castaneda MD PhD Active AMOXICILLIN 500 MG ORAL CAPSULE 2 po BID x 10 days AMOXICILLIN 06331563008 No Longer Active Alina Castaneda MD PhD Active HYDROCODONE-ACETAMINOPHEN 7.5-325 MG ORAL TABLET 1 four times a day as needed for pain HYDROCODONE-ACETAMINOPHEN 98707565598 No Longer Active Alina Castaneda MD PhD Active DOXEPIN HCL 10 MG ORAL CAPSULE Take 1 tablet by mouth daily DOXEPIN HCL 69861236571 No Longer Active Salina ROJAS Active NAVANE 10 MG CAPS 1/2 tablet twice a day THIOTHIXENE No Longer Active Salina ROJAS Active CYCLOBENZAPRINE HCL 10 MG ORAL TABLET 1/2 tablet by mouth every 8 hours as needed for muscle spasms CYCLOBENZAPRINE HCL 79456594050 No Longer Active Alina Castaneda MD PhD Active BACTROBAN 2 % EXTERNAL CREAM apply to ear and nose twice daily MUPIROCIN CALCIUM 94473553737 No Longer Active Alina Castaneda MD PhD Active HYDROCODONE-ACETAMINOPHEN 5-325 MG ORAL TABLET take one tablet by mouth every four hours as needed for pain HYDROCODONE-ACETAMINOPHEN 50614760827 No Longer Active Alina Castaneda MD PhD Active ZYPREXA 5 MG ORAL TABLET take one tablet by mouth every evening OLANZAPINE 57124058536 No Longer Active Alina Castaneda MD PhD Active ALBUTEROL SULFATE (2.5 MG/3ML) 0.083% INHALATION NEBULIZATION SOLUTION one vial per nebulizer TID and PRN cough/soa ALBUTEROL SULFATE 29312778984 No Longer Active Alina Castaneda MD PhD Active GUAIFENESIN ER 600 MG ORAL TABLET EXTENDED RELEASE 12 HOUR 1 tablet by mouth twice daily if needed for cough GUAIFENESIN 27282816060 No Longer Active Marvel MARROQUIN Active AZITHROMYCIN 500 MG INTRAVENOUS SOLUTION RECONSTITUTED 1 po q day AZITHROMYCIN 00422555244 No Longer Active Alina Castaneda MD PhD Active PROMETHAZINE-CODEINE 6.25-10 MG/5ML ORAL SYRUP 1 tsp po q 6 hours prn cough PROMETHAZINE-CODEINE 05922883627 No Longer Active Alina Castaneda MD PhD Active CEFDINIR 300 MG ORAL CAPSULE by mouth twice a day CEFDINIR 61661909957 No Longer Active Alina Castaneda MD PhD Active METFORMIN HCL ER 500 MG ORAL TABLET EXTENDED RELEASE 24 HOUR Take 3 tablets by mouth everyday METFORMIN HCL 57714728961 No Longer Active Alina Castaneda MD PhD Active LEVEMIR 100 UNIT/ML SUBCUTANEOUS SOLUTION 90 units SQ qHS INSULIN DETEMIR 00013886414 No Longer Active Marvel MARROQUIN Active TOPROL XL 100 MG ORAL TABLET EXTENDED RELEASE 24 HOUR 1 @ HS METOPROLOL SUCCINATE 45288967830 No Longer Active Marvel MARROQUIN Active ALLOPURINOL 300 MG ORAL TABLET Take one by mouth daily ALLOPURINOL 18589884013 Active Mima Erazo HEEL DIPPER Active ZYPREXA 10 MG ORAL TABLET Take one by mouth daily OLANZAPINE 22648036632 No Longer Active Alina Castaneda MD PhD Active NOVOLOG 100 UNIT/ML SUBCUTANEOUS SOLUTION 40 units with every meal INSULIN ASPART 70321387546 No Longer Active Alina Castaneda MD PhD Active VERAPAMIL HCL ER 120 MG ORAL TABLET EXTENDED RELEASE 1 qPM 09/08 VERAPAMIL HCL 74158669395 No Longer Active Salina ROJAS Active ZYPREXA 15 MG ORAL TABLET Take 1 tablet by mouth daily OLANZAPINE 55930529844 No Longer Active Marvel MARROQUIN Active ALBUTEROL SULFATE (2.5 MG/3ML) 0.083% INHALATION NEBULIZATION SOLUTION 1 neb tid and prn cough ALBUTEROL SULFATE 20329210894 No Longer Active Alina Castaneda MD PhD Active LANTUS 100 UNIT/ML SUBCUTANEOUS SOLUTION 60 units sq q hs INSULIN GLARGINE 44344936195 No Longer Active CRYSTAL Suarez Active ALBUTEROL SULFATE (2.5 MG/3ML) 0.083% INHALATION NEBULIZATION SOLUTION 1 neb tid and prn cough ALBUTEROL SULFATE (2.5 MG/3ML) 0.083% INHALATION NEBULIZATION SOLUTION 561621 ALBUTEROL SULFATE Inactive ZYPREXA 15 MG ORAL TABLET Take 1 tablet by mouth daily ZYPREXA 15 MG ORAL TABLET 472830 OLANZAPINE Inactive VERAPAMIL HCL ER 120 MG ORAL TABLET EXTENDED RELEASE 1 qPM 09/08 VERAPAMIL HCL ER 120 MG ORAL TABLET EXTENDED RELEASE VERAPAMIL HCL Inactive ZYPREXA 10 MG ORAL TABLET Take one by mouth daily ZYPREXA 10 MG ORAL TABLET 631158 OLANZAPINE Inactive TOPROL XL 100 MG ORAL [...] prn cough PROMETHAZINE-CODEINE 6.25-10 MG/5ML ORAL SYRUP 427091 PROMETHAZINE-CODEINE Inactive GUAIFENESIN ER 600 MG ORAL TABLET EXTENDED RELEASE 12 HOUR 1 tablet by mouth twice daily if needed for cough GUAIFENESIN ER 600 MG ORAL TABLET EXTENDED RELEASE 12 HOUR GUAIFENESIN Inactive ALBUTEROL SULFATE (2.5 MG/3ML) 0.083% INHALATION NEBULIZATION SOLUTION one vial per nebulizer TID and PRN cough/soa ALBUTEROL SULFATE (2.5 MG/3ML) 0.083% INHALATION NEBULIZATION SOLUTION 526806 ALBUTEROL SULFATE Inactive ZYPREXA 5 MG ORAL TABLET take one tablet by mouth every evening ZYPREXA 5 MG ORAL TABLET 767907 OLANZAPINE Inactive HYDROCODONE-ACETAMINOPHEN 5-325 MG ORAL TABLET take one tablet by mouth every four hours as needed for pain HYDROCODONE-ACETAMINOPHEN 5-325 MG ORAL TABLET 367285 HYDROCODONE-ACETAMINOPHEN Inactive BACTROBAN 2 % EXTERNAL CREAM apply to ear and nose twice daily BACTROBAN 2 % EXTERNAL CREAM 141939 MUPIROCIN CALCIUM Inactive CYCLOBENZAPRINE HCL 10 MG ORAL TABLET 1/2 tablet by mouth every 8 hours as needed for muscle spasms CYCLOBENZAPRINE HCL 10 MG ORAL TABLET 380968 CYCLOBENZAPRINE HCL Inactive NAVANE 10 MG CAPS 1/2 tablet twice a day NAVANE 10 MG CAPS THIOTHIXENE Inactive DOXEPIN HCL 10 MG ORAL CAPSULE Take 1 tablet by mouth daily DOXEPIN HCL 10 MG ORAL CAPSULE 5644304 DOXEPIN HCL Inactive HYDROCODONE-ACETAMINOPHEN 7.5-325 MG ORAL TABLET 1 four times a day as needed for pain HYDROCODONE-ACETAMINOPHEN 7.5-325 MG ORAL TABLET 687229 HYDROCODONE-ACETAMINOPHEN Inactive NIACIN ER 500 MG ORAL [...] hr. PRN ACETAMINOPHEN 500 MG ORAL TABLET 384649 ACETAMINOPHEN Inactive SAPHRIS 5 MG SUBLINGUAL TABLET SUBLINGUAL by mouth twice a day SAPHRIS 5 MG SUBLINGUAL TABLET SUBLINGUAL ASENAPINE MALEATE Inactive NIACIN ER 500 MG ORAL TABLET EXTENDED RELEASE 4 qHS (for triglycerides) 01/13 NIACIN ER 500 MG ORAL TABLET EXTENDED RELEASE NIACIN Inactive IBUPROFEN 200 MG ORAL TABLET 1 Q 6 hr. PRN IBUPROFEN 200 MG ORAL TABLET 487374 IBUPROFEN Inactive FLUTICASONE PROPIONATE 50 MCG/ACT NASAL SUSPENSION 2 sprays each nostril qDay x 30 days FLUTICASONE PROPIONATE 50 MCG/ACT NASAL SUSPENSION 3368531 FLUTICASONE PROPIONATE Inactive EQL TRUETEST TEST IN [...] at HS ZYPREXA 7.5 MG ORAL TABLET 540725 OLANZAPINE Inactive THIOTHIXENE 5 MG ORAL CAPSULE by mouth twice a day THIOTHIXENE 5 MG ORAL CAPSULE 440933 THIOTHIXENE Inactive UROXATRAL 10 MG ORAL TABLET EXTENDED RELEASE 24 HOUR Take 1 tablet by mouth daily UROXATRAL 10 MG ORAL TABLET EXTENDED RELEASE 24 HOUR ALFUZOSIN HCL Inactive ACYCLOVIR 400 MG ORAL TABLET 1 pill three times daily x 5 days, for cold sore outbreak ACYCLOVIR 400 MG ORAL TABLET 823446 ACYCLOVIR Inactive TRUETEST TEST IN VITRO STRIP check sugars 4x/day TRUETEST TEST IN VITRO STRIP GLUCOSE BLOOD Inactive HUMALOG 100 UNIT/ML SUBCUTANEOUS SOLUTION Take 20 units with breakfast, 10u with lunch and suppetr. HUMALOG 100 UNIT/ML SUBCUTANEOUS SOLUTION INSULIN LISPRO (HUMAN) Inactive CYCLOBENZAPRINE HCL 10 MG ORAL TABLET 1 tablet by mouth three times daily, scheduled CYCLOBENZAPRINE HCL 10 MG ORAL TABLET 691727 CYCLOBENZAPRINE HCL Inactive ACCU-CHEK ROSA IN VITRO STRIP use strips with device to check blood sugars 3 times daily ACCU-CHEK ROSA IN VITRO STRIP GLUCOSE BLOOD Inactive ACCU-CHEK ROSA DEVICE Use device to check blood sugars ACCU-CHEK ROSA DEVICE BLOOD GLUCOSE MONITORING SUPPL Inactive FLUVOXAMINE MALEATE 100 MG ORAL TABLET Take 1/2 tab at noon 03/04 FLUVOXAMINE MALEATE 100 MG ORAL TABLET 828579 FLUVOXAMINE MALEATE Inactive FLUVOXAMINE MALEATE 100 MG ORAL TABLET Take one (1) tablet by mouth am, 1/2 at noon FLUVOXAMINE MALEATE 100 MG ORAL TABLET 092427 FLUVOXAMINE MALEATE Inactive BACTROBAN 2 % EXTERNAL CREAM Apply to affected area BID for up to 10 days BACTROBAN 2 % EXTERNAL CREAM 926397 MUPIROCIN CALCIUM Inactive NOVOFINE 32G X 6 MM use one four times per day NOVOFINE 32G X 6 MM INSULIN PEN NEEDLE Inactive TRAZODONE HCL 100 MG ORAL TABLET 1 tab by mouth for sleep TRAZODONE HCL 100 MG ORAL TABLET 799361 TRAZODONE HCL Inactive LOVAZA 1 GM ORAL CAPSULE 4 daily (for triglycerides) LOVAZA 1 GM ORAL CAPSULE 064185 [id number] ETHYL ESTERS Inactive METFORMIN HCL ER 500 [...] bladder TOLTERODINE TARTRATE 2 MG ORAL TABLET 224822 TOLTERODINE TARTRATE Inactive COLACE 100 MG ORAL CAPSULE 1 pill by mouth twice daily, for constipation 2014 COLACE 100 MG ORAL CAPSULE 9875917 DOCUSATE SODIUM Inactive LOMOTIL 2.5-0.025 MG ORAL TABLET take 1-2 tabs PO after each stool, no more than 8 in 24 hours LOMOTIL 2.5-0.025 MG ORAL TABLET 6086552 DIPHENOXYLATE-ATROPINE Inactive ZOFRAN 4 MG ORAL TABLET 1 po q4hr PRN Nausea ZOFRAN 4 MG ORAL TABLET 754210 ONDANSETRON HCL Inactive HYDROCODONE-ACETAMINOPHEN 5-325 MG ORAL TABLET 2 tabs by mouth three times daily for pain HYDROCODONE-ACETAMINOPHEN 5-325 MG ORAL TABLET 266034 HYDROCODONE-ACETAMINOPHEN Inactive ZOLPIDEM TARTRATE 10 MG ORAL TABLET take at bedtime ZOLPIDEM TARTRATE 10 MG ORAL TABLET 218583 ZOLPIDEM TARTRATE Inactive LISINOPRIL 20 MG ORAL TABLET 1 BID LISINOPRIL 20 MG ORAL TABLET 380529 LISINOPRIL Inactive TRAVATAN Z 0.004 % OPHTHALMIC SOLUTION 1 gtt each eye daily TRAVATAN Z 0.004 % OPHTHALMIC SOLUTION TRAVOPROST Inactive LATUDA 60 MG ORAL TABLET Take one by mouth daily LATUDA 60 MG ORAL TABLET LURASIDONE HCL Inactive FLUVOXAMINE MALEATE 50 MG ORAL TABLET 1 tab by mouth daily 04/01 FLUVOXAMINE MALEATE 50 MG ORAL TABLET 446919 FLUVOXAMINE MALEATE Inactive LEVEMIR FLEXTOUCH 100 UNIT/ML [...] 30G 3 a day TRUEPLUS LANCETS 30G [id number] LANCETS Inactive AMITIZA 24 MCG ORAL CAPSULE [...] noon FLUVOXAMINE MALEATE 100 MG ORAL TABLET 930098 FLUVOXAMINE MALEATE Inactive FLONASE ALLERGY RELIEF 50 MCG/ACT NASAL SUSPENSION One spray each nostril BID x 1 week then daily FLONASE ALLERGY RELIEF 50 MCG/ACT NASAL SUSPENSION 7567018 FLUTICASONE PROPIONATE Inactive IMODIUM A-D 2 MG ORAL TABLET 1 tab QID as needed IMODIUM A-D 2 MG ORAL TABLET 673644 LOPERAMIDE HCL Inactive MYLANTA GAS RELIEF MAXIMUM STR 125 MG ORAL CAPSULE 30cc every 4 hours prn MYLANTA GAS RELIEF MAXIMUM STR 125 MG ORAL CAPSULE SIMETHICONE Inactive TRUEPLUS LANCETS 30G 3x a day TRUEPLUS LANCETS 30G 95575863373 LANCETS Inactive TRUE METRIX BLOOD GLUCOSE TEST [...] headaches TRAZODONE HCL 100 MG ORAL TABLET 848638 TRAZODONE HCL Inactive TYLENOL 8 HOUR 650 [...] evening TAMSULOSIN HCL 0.4 MG ORAL CAPSULE 068661 TAMSULOSIN HCL Inactive [facility] MELATONIN 3 MG ORAL TABLET give 1 tab by mouth at HS [facility] MELATONIN 3 MG ORAL TABLET 741609 MELATONIN Inactive CEFDINIR 300 MG ORAL CAPSULE by mouth twice a day CEFDINIR 300 MG ORAL CAPSULE 811007 CEFDINIR Inactive AZITHROMYCIN 500 MG INTRAVENOUS SOLUTION RECONSTITUTED 1 po q day AZITHROMYCIN 500 MG INTRAVENOUS SOLUTION RECONSTITUTED 90218864174 AZITHROMYCIN Inactive AMOXICILLIN 500 MG ORAL CAPSULE 2 po BID x 10 days AMOXICILLIN 500 MG ORAL CAPSULE 114538 AMOXICILLIN Inactive PENICILLIN V POTASSIUM 500 MG ORAL TABLET 1 pill by mouth three times daily PENICILLIN V POTASSIUM 500 MG ORAL TABLET 552007 PENICILLIN V POTASSIUM Inactive KEFLEX 500 MG ORAL CAPSULE 1 po BID x 7 days KEFLEX 500 MG ORAL CAPSULE 320299 CEPHALEXIN Inactive Immunizations Vaccine Administration Date Value [...] Fluvirin, Fluarix, Agriflu(>=18 yo)) Fluzone (>3 yrs.) [[id number]] Influenza, seasonal, injectable pneumococcal immunization administered Pneumovax [...] ... - Chemistry sodium, serum 135 mmol/L 122-152 8646/08/22 carbon dioxide, venous blood 28.4 mmol/L 21.0-32.0 [...] mg/g {creat} 0-29 cholesterol, serum 263 mg/dL 124-646 7584/08/22 triglyceride, serum, fasting 1312 mg/dL 30-200 HDL [...] 80 mg/L 0-19 Office Visit: TCM from halfway - Lab PSA (prostate specific antigent), recommendation and action PSA ordered Encounters Code Encounter Date Provider Facility CPT-46395 Level 3 Est. Patient 09:12:14 TITLE SEARCH MANAGER Mima Erazo [facility] CPT-48434 Level 3 Est. Patient 16:52:51 CDT Vanessa Hickey MD [facility] CPT-93263 Level 3 Est. Patient 17:40:16 CDT Mima Erazo [facility] CPT-94514 Level 3 Est. Patient 14:34:52 CDT Vanessa Hickey MD [facility]-83735 Level 3 Est. Patient 16:27:51 CDT Mima Erazo [facility]-89482 Level 3 Est. Patient 14:39:00 TITLE SEARCH MANAGER Vanessa Hickey [facility]78007 Level 2 Est. Patient 18:43:34 CDT Mima Erazo [facility] CPT-16520 Level 3 Est. Patient 16:22:09 CDT Cherelle Avila [facility]-54670 Level 4 Est. Patient 17:55:14 CDT Mima Erazo [facility]-28418 Level 2 Est. Patient 17:13:21 CDT Alina Castaneda MD [facility]22649 Level 3 Est. Patient 14:46:15 CDT Vanessa Hickey [facility]13760 Level 3 Est. Patient 09:34:56 CDT Alina Castaneda MD [facility]47583 Level 3 Est. Patient 21:40:19 CDT Mima Erazo [facility]-91910 Level 3 Est. Patient 09:26:40 CDT Marvel Charles [facility]46564 Level 3 Est. Patient 12:36:43 CDT Vanessa Hickey [facility]98054 Level 3 Est. Patient 12:57:49 CDT Vanessa Hickey [facility]43921 Level 3 Est. Patient 00:28:25 CDT Alina Castaneda MD [facility]18856 Level 2 Est. Patient 12:52:14 CDT Alina Castaneda MD [facility]-12475 Level 3 Est. Patient 11:51:18 TITLE SEARCH MANAGER Alina Castaneda MD [facility]-66854 Level 3 Est. Patient 10:09:22 TITLE SEARCH MANAGER Alina Castaneda MD [facility]-31859 Level 3 Est. Patient 14:36:26 TITLE SEARCH MANAGER [facility] Charles [facility]-42079 Level 3 Est. Patient 13:34:47 TITLE SEARCH MANAGER Alina Castaneda MD [facility]32276 Level 3 Est. Patient 19:52:08 TITLE SEARCH MANAGER Alina Castaneda MD [facility]35416 Level 3 Est. Patient 10:01:51 TITLE SEARCH MANAGER [facility]-89346 Level 3 Est. Patient 21:54:06 CDT Vanessa Hickey MD [facility]-71842 Level 3 Est. Patient 08:54:46 CDT Alina Castaneda MD [facility]-62014 Level 3 Est. Patient 09:32:11 CDT Marvel Charles [facility]-64705 Level 3 Est. Patient 12:02:49 CDT Alina Castaneda MD [facility]-09080 Level 3 Est. Patient 19:17:33 CDT Alina Castaneda MD [facility]-05471 Level 3 Est. Patient 13:19:10 CDT Marvel Charles [facility]-99285 Level 3 Est. Patient 08:20:05 CDT Alina Castaneda MD [facility]06407 Level 3 Est. Patient 15:17:18 CDT Alina Castaneda MD [facility]82248 Level 3 Est. Patient 14:25:36 TITLE SEARCH MANAGER Marvel [facility] CPT-66090 Level 3 Est. Patient 10:09:15 TITLE SEARCH MANAGER Marvel Charles [facility]-86255 Level 3 Est. Patient 21:28:43 CDT Alina Castaneda MD [facility]-30826 Level 3 Est. Patient 15:20:11 CDT Marvel Charles [facility]-48187 Level 4 Est. Patient 19:08:12 CDT Alina Castaneda MD [facility]-32090 Level 3 Est. Patient 15:06:39 CDT [facility] 4 Est[facility] Patient 17:48:15 CDT Alina Castaneda MD [facility]-89641 Level 3 Est. Patient 14:53:49 CDT Alina Castaneda MD [facility]-77497 Level 3 Est. Patient 09:35:16 CDT Alina Castaneda MD [facility]-92099 Level 3 Est. Patient 12:23:22 CDT Alina Castaneda MD [facility]-15853 Level 3 Est. Patient 16:19:15 CDT Alina Castaneda MD [facility]-32245 Level 3 Est. Patient 21:39:56 TITLE SEARCH MANAGER Alina Castaneda MD [facility]-43650 Level 4 Est. Patient 14:12:56 TITLE SEARCH MANAGER Alina Castaneda MD [facility]-32852 Level 2 Est. Patient 15:34:57 TITLE SEARCH MANAGER Alina Castaneda MD [facility]-47629 Level 3 Est. Patient 12:17:04 TITLE SEARCH MANAGER Alina Castaneda MD [facility]-17114 Level 3 Est. Patient 09:18:18 TITLE SEARCH MANAGER Marvel Charles [facility]-52889 Level 2 Est. Patient 21:50:24 CDT Alina Castaneda MD [facility]73876 Level 3 Est. Patient 09:17:28 CDT Marvel Charles [facility]-34590 Level 4 Est. Patient 18:54:02 CDT Alina Castaneda MD [facility]21965 Level 3 Est. Patient 10:47:10 CDT Alina Castaneda MD [facility]78915 Level 3 Est. Patient 09:22:20 CDT Marvel Charles [facility]-49702 Level 3 Est. Patient 16:39:43 CDT [facility] Araceli [facility]-83291 Level 3 Est. Patient 16:05:16 CDT Alina Castaneda MD [facility]-33205 Level 3 Est. Patient 00:29:15 CDT Alina Castaneda MD [facility]99970 Level 3 Est. Patient 10:49:22 TITLE SEARCH MANAGER Brooksjohn Charles [facility]-71946 Level 3 Est. Patient 21:30:19 TITLE SEARCH MANAGER Alina Castaneda MD [facility]37986 Level 4 Est. Patient 17:04:11 TITLE SEARCH MANAGER Marvel Charles [facility]-48608 Level 3 Est. Patient 15:34:11 TITLE SEARCH MANAGER Maliheh Ziglari [employer]IDENT[employer] SAL[employer] [facility] CPT-53706 Level 2 Est. Patient 12:51:58 TITLE SEARCH MANAGER Alina Castaneda MD PhD [facility] CPT-48478 Level 3 Est. Patient 13:20:01 TITLE SEARCH MANAGER Alina Castaneda MD PhD [facility] CPT-33296 Level 3 Est. Patient 09:23:35 CDT Alina Castaneda MD PhD [facility] Procedures Code Procedure Name Date Entry Date Standard Description CPT-TCMM Transitional Care Mgmt-Moderate 12:32:19 CDT CPT-62975 Level 2 Shelter 09:01:11 CDT CPT-87288 HGBA1C - LAB USE ONLY 09:30:27 TITLE SEARCH MANAGER CPT-36438 BMP - LAB USE ONLY 09:30:27 TITLE SEARCH MANAGER CPT-60306 Venipuncture Draw Fee 09:30:26 TITLE SEARCH MANAGER CPT-TCMM Transitional Care Mgmt-Moderate 10:25:31 CDT CPT-97540 Bladder Scan 14:34:53 CDT CPT-19302 Bladder Scan 14:39:01 TITLE SEARCH MANAGER CPT-TCMM Transitional Care Mgmt-Moderate 10:30:19 TITLE SEARCH MANAGER CPT-39622 Bladder Scan 12:36:44 CDT CPT-55049 Bladder Scan 21:54:06 CDT CPT-G0008 Administration of Influenza Virus Vaccine 13:05:26 CDT CPT-85200 Fluzone Quadrivalent Intramuscular Suspension 0.5 ML 13: 05:26 CDT CPT-38175 Administration single or combination vaccine inc oral 11 :49:51 CDT CPT-32947 Pneumovax 11:49:51 CDT CPT-44698 Ribs unilateral 2V 12:37:22 TITLE SEARCH MANAGER CPT-97387 Chest 2V Frontal and Lat 17:15:26 CDT CPT-84109 Abx/Therapy Injection 18:54:02 CDT CPT-J0696 Rocephin 1000 mg (Ceftriaxone) 16:00:32 CDT CPT-00067 Chest 2V Frontal and Lat 15:26:45 CDT CPT-67531 Chest 2V Frontal and Lat 10:23:27 CDT CPT-76767 Venipuncture Draw Fee 10:11:00 CDT CPT-40731 Administration single or combination vaccine inc oral 11 :56:38 CDT CPT-40055 Influenza split virus > age 3 11:56:38 CDT CPT-82967 Venipuncture Draw Fee 08:49:54 TITLE SEARCH MANAGER CPT-79517 EKG Trac and Interp 17:54:19 TITLE SEARCH MANAGER
--- OUTSIDE RECORDS SUMMARY | 2018-07-02 12:50 | XMS REPORT | Clinical Summary ---
Author Author Admin, TERELL Organization [facility] [employer] Address Unknown Phone Unavailable Allergies, Adverse Reactions, [...] mellitus, type II 250.00 Active Marvel Thurstonari BANKING ATTORNEY Diabetes mellitus without mention of complication, type [...] Generic Name NDC Status Provider Patient Instruction CLONAZEPAM 1 MG ORAL TABLET 1 pill by mouth two times daily CLONAZEPAM [id number] Active Gabrielle Marquez MA Active FENOFIBRATE 160 MG ORAL TABLET Take 1 tablet by mouth daily FENOFIBRATE 02581267652 Active Mya LedezmaBERT Active SEROQUEL 50 MG ORAL TABLET Take Give 1 tablet by mouth at bedtime QUETIAPINE FUMARATE 98537024059 Active Mason Loredo MD Active OCEAN NASAL SPRAY SOLUTION 2 sprays in both nostrils every 8 hours as needed for dry mucous membranes SALINE SOLN 85855412722 Active Mason Loredo MD Active BETHANECHOL CHLORIDE 25 MG ORAL TABLET Take 1 tablet mouth four times a day BETHANECHOL CHLORIDE 98495311807 Active Mason Loredo MD Active [facility] LUBRICANT EYE DROPS 0.4-0.3 % OPHTHALMIC SOLUTION POLYETHYL GLYCOL-PROPYL GLYCOL 08347028093 No Longer Active Mason Loredo MD Active TYLENOL 8 HOUR 650 MG ORAL TABLET EXTENDED RELEASE 1 tab QID prn ACETAMINOPHEN 49867193974 No Longer Active Mason Loredo MD Active TOPAMAX 25 MG ORAL TABLET 1 tab BID PRN TOPIRAMATE 20269787020 Active Mason Loredo MD Active TIMOPTIC OCUDOSE 0.5 % OPHTHALMIC SOLUTION instill one drop into both eyes q12H TIMOLOL MALEATE 19953479910 Active Mason Loredo MD Active TRAZODONE HCL 100 MG ORAL TABLET 1 every night to prevent headaches TRAZODONE HCL 74768287407 No Longer Active Mason Loredo MD Active TRAVATAN Z 0.004 % OPHTHALMIC SOLUTION 1 drop each eye daily 2017 TRAVOPROST 83600659924 No Longer Active Mason Loredo MD Active LATUDA 60 MG ORAL TABLET 1 tab daily LURASIDONE HCL 20313011335 No Longer Active Mason Loredo MD Active MORPHINE SULFATE ER 30 MG ORAL TABLET EXTENDED RELEASE Take one capsule BID MORPHINE SULFATE 44594667568 No Longer Active Mason Loredo MD Active TRUE METRIX BLOOD GLUCOSE TEST IN VITRO STRIP Check blood sugars 3x/day. 2015 GLUCOSE BLOOD 20123260160 No Longer Active Mason Loredo MD Active TRUEPLUS LANCETS 30G 3x a day LANCETS 53574284664 No Longer Active Mason Loredo MD Active MYLANTA GAS RELIEF MAXIMUM STR 125 MG ORAL CAPSULE 30cc every 4 hours prn SIMETHICONE 80622427381 No Longer Active Mason Loredo MD Active IMODIUM A-D 2 MG ORAL TABLET 1 tab QID as needed LOPERAMIDE HCL 19820257485 No Longer Active Mason Loredo MD Active FLONASE ALLERGY RELIEF 50 MCG/ACT NASAL SUSPENSION One spray each nostril BID x 1 week then daily FLUTICASONE PROPIONATE 99618049748 No Longer Active Mason Loredo MD Active FLUVOXAMINE MALEATE 100 MG ORAL TABLET take one tab every AM et HS, and take 1 /2 tab at noon FLUVOXAMINE MALEATE 20138644527 No Longer Active Mason Loredo MD Active BD PEN NEEDLE MINI U/F 31G X 5 MM 4 a day INSULIN PEN NEEDLE 69096696682 No Longer Active Mason Loredo MD Active AMITIZA 24 MCG ORAL CAPSULE Take one capsule BID for constipation LUBIPROSTONE 43192451065 No Longer Active Mason Loredo MD Active TRUEPLUS LANCETS 30G 3 a day LANCETS 94127249283 No Longer Active Mason Loredo MD Active CORICIDIN HBP CONGESTION/COUGH 10-200 MG ORAL CAPSULE Take as directed on box as needed for cold/flu symptoms DEXTROMETHORPHAN- GUAIFENESIN 52785284515 No Longer Active Mason Loredo MD Active OMEGA-3 300 MG ORAL CAPSULE 4 caps by mouth daily OMEGA-3 FATTY ACIDS 03574135765 No Longer Active Mason Loredo MD Active HUMALOG KWIKPEN 100 UNIT/ML SUBCUTANEOUS SOLUTION PEN-INJECTOR sliding scale if needed INSULIN LISPRO (HUMAN) 80731567920 No Longer Active Mason Loredo MD Active TRUETEST TEST IN VITRO STRIP check blood sugars 3x/day GLUCOSE BLOOD 19264351742 No Longer Active Mason Loredo MD Active ALFUZOSIN HCL ER 10 MG ORAL TABLET EXTENDED RELEASE 24 HOUR 1 tablet daily ALFUZOSIN HCL 77633300126 No Longer Active Mason Loredo MD Active BD INSULIN SYRINGE 28G X 1/2" 1 ML 1 four times per day INSULIN SYRINGE-NEEDLE U-100 29786909583 No Longer Active Mason Loredo MD Active LEVEMIR FLEXTOUCH 100 UNIT/ML SUBCUTANEOUS SOLUTION PEN-INJECTOR 60 units SQ each evening, for diabetes INSULIN DETEMIR 94262465603 No Longer Active Mason Loredo MD Active METFORMIN HCL ER (MOD) 500 MG ORAL TABLET EXTENDED RELEASE 24 HOUR give two tabs PO BID METFORMIN HCL 73192365054 Active Mason Loredo MD Active LACTULOSE 20 GM/30ML ORAL SOLUTION give 30 Ml PO BID PRN LACTULOSE 83464259661 Active Mason Loredo MD Active COLACE 100 MG ORAL CAPSULE 1 tab BID PRN DOCUSATE SODIUM 67055301997 Active Mason Loredo MD Active TAMSULOSIN HCL 0.4 MG ORAL CAPSULE give 2 capsules PO each evening TAMSULOSIN HCL 83783493132 Active Mason Loredo MD Active [facility] MELATONIN 3 MG ORAL TABLET give 1 tab by mouth at HS MELATONIN 10342131211 Active Mason Loredo MD Active LATANOPROST 0.005 % OPHTHALMIC SOLUTION instill 1 drop in both eyes at bed time LATANOPROST 44429588825 Active Mason Loredo MD Active AMARYL 2 MG ORAL TABLET give 2.5 tabs PO daily GLIMEPIRIDE 22291092968 Active Mason Loredo MD Active MIRALAX ORAL POWDER 17g by mouth q12h, for constipation POLYETHYLENE GLYCOL 3350 12706795800 Active Mason Loredo MD Active IBUPROFEN 400 MG ORAL TABLET 1 tab Q6H PRN IBUPROFEN 63425538845 Active Mason Loredo MD Active EFFEXOR XR 37.5 MG ORAL CAPSULE EXTENDED RELEASE 24 HOUR Take one by mouth daily VENLAFAXINE HCL 38305633968 Active Mima Erazo ALBAN Active FLUVOXAMINE MALEATE 50 MG ORAL TABLET 1 tab by mouth daily 04/01 FLUVOXAMINE MALEATE 22303080317 No Longer Active Mima Erazo ALBAN Active TRUE METRIX METER w/Device KIT Check blood sugars 3x/day BLOOD GLUCOSE MONITORING SUPPL 26633168233 Active Marvel Charles BANKING ATTORNEY Active VITAMIN D 2000 UNIT ORAL CAPSULE Take one by mouth daily CHOLECALCIFEROL 44667361241 Active Mima Erazo ALBAN Active LATUDA 60 MG ORAL TABLET Take one by mouth daily LURASIDONE HCL 39776421134 No Longer Active Mimacecily Erazo APRN Active [facility] MILK OF MAGNESIA 400 MG/5ML ORAL SUSPENSION 30ml by mouth bid prn MAGNESIUM HYDROXIDE 64594367824 Active Mason Loredo MD Active TRAVATAN Z 0.004 % OPHTHALMIC SOLUTION 1 gtt each eye daily TRAVOPROST 03450355914 No Longer Active Mason Loredo MD Active LISINOPRIL 20 MG ORAL TABLET 1 BID LISINOPRIL 31427335396 No Longer Active Mason Loredo MD Active ZOLPIDEM TARTRATE 10 MG ORAL TABLET take at bedtime ZOLPIDEM TARTRATE 99823330913 No Longer Active Mason Loredo MD Active HYDROCODONE-ACETAMINOPHEN 5-325 MG ORAL TABLET 2 tabs by mouth three times daily for pain HYDROCODONE-ACETAMINOPHEN 49329220007 No Longer Active Mason Loredo MD Active ZOFRAN 4 MG ORAL TABLET 1 po q4hr PRN Nausea ONDANSETRON HCL 77831837569 No Longer Active Mason Loredo MD Active LOMOTIL 2.5-0.025 MG ORAL TABLET take 1-2 tabs PO after each stool, no more than 8 in 24 hours DIPHENOXYLATE-ATROPINE 08573496042 No Longer Active Mason Loredo MD Active COLACE 100 MG ORAL CAPSULE 1 pill by mouth twice daily, for constipation 2014 DOCUSATE SODIUM 49649427730 No Longer Active Mima Erazo APRN Active TOLTERODINE TARTRATE 2 MG ORAL TABLET 1 pill twice daily, for bladder TOLTERODINE TARTRATE 41032237179 No Longer Active Vanessa Hickey MD Active AMITIZA 24 MCG ORAL CAPSULE Take one capsule BID for constipation. LUBIPROSTONE 24642764289 No Longer Active Vanessa Hickey MD Active METOPROLOL SUCCINATE ER 100 MG ORAL TABLET EXTENDED RELEASE 24 HOUR 1 by mouth daily for blood pressure METOPROLOL SUCCINATE 23706277729 No Longer Active Grace Nascimento RMA Active METFORMIN HCL ER 500 MG ORAL TABLET EXTENDED RELEASE 24 HOUR Take three tablets by mouth everyday METFORMIN HCL 97011781554 No Longer Active Grace Azam RMA Active LOVAZA 1 GM ORAL CAPSULE 4 daily (for triglycerides) PIFYM-2-MNOQ ETHYL ESTERS 49318871152 No Longer Active Grace Azam RMA Active TRAZODONE HCL 100 MG ORAL TABLET 1 tab by mouth for sleep TRAZODONE HCL 45884481170 No Longer Active Grace Azam RMA Active NOVOFINE 32G X 6 MM use one four times per day INSULIN PEN NEEDLE 01741282541 No Longer Active Grace Azam RMA Active BACTROBAN 2 % EXTERNAL CREAM Apply to affected area BID for up to 10 days MUPIROCIN CALCIUM 06722526491 No Longer Active Grace Azam RMA Active KEFLEX 500 MG ORAL CAPSULE 1 po BID x 7 days CEPHALEXIN 51063992077 No Longer Active Cherelle Avila APRN Active FLUVOXAMINE MALEATE 100 MG ORAL TABLET Take one (1) tablet by mouth am, 1/2 at noon FLUVOXAMINE MALEATE 89640357749 No Longer Active Mima Erazo ALBAN Active FLUVOXAMINE MALEATE 100 MG ORAL TABLET Take 1/2 tab at noon 03/04 FLUVOXAMINE MALEATE 95989521347 No Longer Active Cherelle Avila ALBAN Active ACCU-CHEK ROSA DEVICE Use device to check blood sugars BLOOD GLUCOSE MONITORING SUPPL 37797388829 No Longer Active Maljohn Mackenzieglari BANKING ATTORNEY Active ACCU-CHEK ROSA IN VITRO STRIP use strips with device to check blood sugars 3 times daily GLUCOSE BLOOD 98968912564 No Longer Active Maljohn Mackenzieglari BANKING ATTORNEY Active VERAPAMIL HCL ER 180 MG ORAL TABLET EXTENDED RELEASE 1 pill by mouth twice daily, for migraine prevention VERAPAMIL HCL 75403490283 Active Mima Erazo ALBAN Active CYCLOBENZAPRINE HCL 10 MG ORAL TABLET 1 tablet by mouth three times daily, scheduled CYCLOBENZAPRINE HCL 70626729505 No Longer Active Alina Castaneda MD PhD Active HUMALOG 100 UNIT/ML SUBCUTANEOUS SOLUTION Take 20 units with breakfast, 10u with lunch and suppetr. INSULIN LISPRO (HUMAN) 31092637936 No Longer Active Alina Castaneda MD PhD Active TRUETEST TEST IN VITRO STRIP check sugars 4x/day GLUCOSE BLOOD 71791095252 No Longer Active Alina Castaneda MD PhD Active MORPHINE SULFATE 30 MG ORAL TABLET 1 pill by mouth twice daily, for pain 2013 MORPHINE SULFATE 33540784362 No Longer Active Mason Loredo MD Active ACYCLOVIR 400 MG ORAL TABLET 1 pill three times daily x 5 days, for cold sore outbreak ACYCLOVIR 28716950479 No Longer Active Alian Castaneda MD PhD Active PENICILLIN V POTASSIUM 500 MG ORAL TABLET 1 pill by mouth three times daily PENICILLIN V POTASSIUM 96404596053 No Longer Active Alina Castaneda MD PhD Active UROXATRAL 10 MG ORAL TABLET EXTENDED RELEASE 24 HOUR Take 1 tablet by mouth daily ALFUZOSIN HCL 34853925551 No Longer Active Alina Castaneda MD PhD Active THIOTHIXENE 5 MG ORAL CAPSULE by mouth twice a day THIOTHIXENE 42517440647 No Longer Active Alina Castaneda MD PhD Active ZYPREXA 7.5 MG ORAL TABLET 1 at HS OLANZAPINE 59383326165 No Longer Active Alina Castaneda MD PhD Active DETROL LA 4 MG ORAL CAPSULE EXTENDED RELEASE 24 HOUR Take 1 tablet by mouth daily TOLTERODINE TARTRATE 56233305611 No Longer Active Alina Castaneda MD PhD Active TERESE CONTOUR TEST IN VITRO STRIP monitor blood sugars 3x/day GLUCOSE BLOOD 66534430424 No Longer Active Alina Castaneda MD PhD Active EQL TRUETEST TEST IN VITRO STRIP Test blood sugar TID GLUCOSE BLOOD 74439393770 No Longer Active Alina Castaneda MD PhD Active FLUTICASONE PROPIONATE 50 MCG/ACT NASAL SUSPENSION 2 sprays each nostril qDay x 30 days FLUTICASONE PROPIONATE 94441042507 No Longer Active Alina Castaneda MD PhD Active IBUPROFEN 200 MG ORAL TABLET 1 Q 6 hr. PRN IBUPROFEN 55693432177 No Longer Active Alina Castaneda MD PhD Active NIACIN ER 500 MG ORAL TABLET EXTENDED RELEASE 4 qHS (for triglycerides) 01/13 NIACIN 04545704366 No Longer Active Alina Castaneda MD PhD Active SAPHRIS 5 MG SUBLINGUAL TABLET SUBLINGUAL by mouth twice a day ASENAPINE MALEATE 42681128221 No Longer Active Maljohn Ziglari LOPEZ Active ACETAMINOPHEN 500 MG ORAL TABLET 2 Q 6 hr. PRN ACETAMINOPHEN 01009683091 No Longer Active Maliheh Ziglari BANKING ATTORNEY Active ORPHENADRINE CITRATE ER 100 MG ORAL TABLET EXTENDED RELEASE 12 HOUR 1 every 12 hr. as needed ORPHENADRINE CITRATE 45634337672 No Longer Active Alina Castaneda MD PhD Active NIACIN ER 500 MG ORAL TABLET EXTENDED RELEASE 2 qHS NIACIN 98570763523 No Longer Active Alina Castaneda MD PhD Active AMOXICILLIN 500 MG ORAL CAPSULE 2 po BID x 10 days AMOXICILLIN 48416401006 No Longer Active Alina Castaneda MD PhD Active HYDROCODONE-ACETAMINOPHEN 7.5-325 MG ORAL TABLET 1 four times a day as needed for pain HYDROCODONE-ACETAMINOPHEN 37566240521 No Longer Active Alina Castaneda MD PhD Active DOXEPIN HCL 10 MG ORAL CAPSULE Take 1 tablet by mouth daily DOXEPIN HCL 28434582433 No Longer Active Salina Ervinford [facility] Active NAVANE 10 MG CAPS 1/2 tablet twice a day THIOTHIXENE No Longer Active Salina Ervinford [facility] Active CYCLOBENZAPRINE HCL 10 MG ORAL TABLET 1/2 tablet by mouth every 8 hours as needed for muscle spasms CYCLOBENZAPRINE HCL 79566908594 No Longer Active Alina Castaneda MD PhD Active BACTROBAN 2 % EXTERNAL CREAM apply to ear and nose twice daily MUPIROCIN CALCIUM 09792283703 No Longer Active Alina Castaneda MD PhD Active HYDROCODONE-ACETAMINOPHEN 5-325 MG ORAL TABLET take one tablet by mouth every four hours as needed for pain HYDROCODONE-ACETAMINOPHEN 15289011029 No Longer Active Alina Castaneda MD PhD Active ZYPREXA 5 MG ORAL TABLET take one tablet by mouth every evening OLANZAPINE 42515095715 No Longer Active Alina Castaneda MD PhD Active ALBUTEROL SULFATE (2.5 MG/3ML) 0.083% INHALATION NEBULIZATION SOLUTION one vial per nebulizer TID and PRN cough/soa ALBUTEROL SULFATE 32639090290 No Longer Active Alina Castaneda MD PhD Active GUAIFENESIN ER 600 MG ORAL TABLET EXTENDED RELEASE 12 HOUR 1 tablet by mouth twice daily if needed for cough GUAIFENESIN 98174638799 No Longer Active Marvel MARROQUIN Active AZITHROMYCIN 500 MG INTRAVENOUS SOLUTION RECONSTITUTED 1 po q day AZITHROMYCIN 36697039358 No Longer Active Alina Castaneda MD PhD Active PROMETHAZINE-CODEINE 6.25-10 MG/5ML ORAL SYRUP 1 tsp po q 6 hours prn cough PROMETHAZINE-CODEINE 72139212006 No Longer Active Alina Castaneda MD PhD Active CEFDINIR 300 MG ORAL CAPSULE by mouth twice a day CEFDINIR 38116109683 No Longer Active Alina Castaneda MD PhD Active METFORMIN HCL ER 500 MG ORAL TABLET EXTENDED RELEASE 24 HOUR Take 3 tablets by mouth everyday METFORMIN HCL 98305748739 No Longer Active Alina Castaneda MD PhD Active LEVEMIR 100 UNIT/ML SUBCUTANEOUS SOLUTION 90 units SQ qHS INSULIN DETEMIR 47676428568 No Longer Active Marvel MARROQUIN Active TOPROL XL 100 MG ORAL TABLET EXTENDED RELEASE 24 HOUR 1 @ HS METOPROLOL SUCCINATE 84059606060 No Longer Active Marvel MARROQUIN Active ALLOPURINOL 300 MG ORAL TABLET Take one by mouth daily ALLOPURINOL 66129967589 Active Mima Erazo APRN Active ZYPREXA 10 MG ORAL TABLET Take one by mouth daily OLANZAPINE 81649674514 No Longer Active Alina Castaneda MD PhD Active NOVOLOG 100 UNIT/ML SUBCUTANEOUS SOLUTION 40 units with every meal INSULIN ASPART 29266822175 No Longer Active Alina Castaneda MD PhD Active VERAPAMIL HCL ER 120 MG ORAL TABLET EXTENDED RELEASE 1 qPM 09/08 VERAPAMIL HCL 60150042186 No Longer Active Salina ROJAS Active ZYPREXA 15 MG ORAL TABLET Take 1 tablet by mouth daily OLANZAPINE 63969301743 No Longer Active Marvel MARROQUIN Active ALBUTEROL SULFATE (2.5 MG/3ML) 0.083% INHALATION NEBULIZATION SOLUTION 1 neb tid and prn cough ALBUTEROL SULFATE 30098512201 No Longer Active Alina Castaneda MD PhD Active LANTUS 100 UNIT/ML SUBCUTANEOUS SOLUTION 60 units sq q hs INSULIN GLARGINE 19631547490 No Longer Active CRYSTAL Suarez Active ACETAMINOPHEN 500 MG ORAL TABLET 2 Q 6 hr. PRN ACETAMINOPHEN 500 MG ORAL TABLET 468700 ACETAMINOPHEN Inactive ALBUTEROL SULFATE (2.5 MG/3ML) 0.083% INHALATION NEBULIZATION SOLUTION one vial per nebulizer TID and PRN cough/soa ALBUTEROL SULFATE (2.5 MG/3ML) 0.083% INHALATION NEBULIZATION SOLUTION 072683 ALBUTEROL SULFATE Inactive ALBUTEROL SULFATE (2.5 MG/3ML) 0.083% INHALATION NEBULIZATION SOLUTION 1 neb tid and prn cough ALBUTEROL SULFATE (2.5 MG/3ML) 0.083% INHALATION NEBULIZATION SOLUTION 492818 ALBUTEROL SULFATE Inactive AMOXICILLIN 500 MG ORAL CAPSULE 2 po BID x 10 days AMOXICILLIN 500 MG ORAL CAPSULE 018029 AMOXICILLIN Inactive COLACE 100 MG ORAL CAPSULE 1 pill by mouth twice daily, for constipation 2014 COLACE 100 MG ORAL CAPSULE 1769273 DOCUSATE SODIUM Inactive CYCLOBENZAPRINE HCL 10 MG ORAL TABLET 1/2 tablet by mouth every 8 hours as needed for muscle spasms CYCLOBENZAPRINE HCL 10 MG ORAL TABLET 864944 CYCLOBENZAPRINE HCL Inactive CYCLOBENZAPRINE HCL 10 MG ORAL TABLET 1 tablet by mouth three times daily, scheduled CYCLOBENZAPRINE HCL 10 MG ORAL TABLET 115884 CYCLOBENZAPRINE HCL Inactive DOXEPIN HCL 10 MG ORAL CAPSULE Take 1 tablet by mouth daily DOXEPIN HCL 10 MG ORAL CAPSULE 4093370 DOXEPIN HCL Inactive IBUPROFEN 200 MG ORAL TABLET 1 Q 6 hr. PRN IBUPROFEN 200 MG ORAL TABLET 188164 IBUPROFEN Inactive IMODIUM A-D 2 MG ORAL TABLET 1 tab QID as needed IMODIUM A-D 2 MG ORAL TABLET 130003 LOPERAMIDE HCL Inactive KEFLEX 500 MG ORAL CAPSULE 1 po BID x 7 days KEFLEX 500 MG ORAL CAPSULE 822166 CEPHALEXIN Inactive LISINOPRIL 20 MG ORAL TABLET 1 BID LISINOPRIL 20 MG ORAL TABLET 826690 LISINOPRIL Inactive LOMOTIL 2.5-0.025 MG ORAL TABLET take 1-2 tabs PO after each stool, no more than 8 in 24 hours LOMOTIL 2.5-0.025 MG ORAL TABLET 1921921 DIPHENOXYLATE-ATROPINE Inactive NAVANE 10 MG CAPS 1/2 [...] PENICILLIN V POTASSIUM 500 MG ORAL TABLET 081439 PENICILLIN V POTASSIUM Inactive PROMETHAZINE-CODEINE 6.25-10 MG/5ML ORAL SYRUP 1 tsp po q 6 hours prn cough PROMETHAZINE-CODEINE 6.25-10 MG/5ML ORAL SYRUP 736565 PROMETHAZINE-CODEINE Inactive THIOTHIXENE 5 MG ORAL CAPSULE by mouth twice a day THIOTHIXENE 5 MG ORAL CAPSULE 722153 THIOTHIXENE Inactive TRAZODONE HCL 100 MG ORAL TABLET 1 tab by mouth for sleep TRAZODONE HCL 100 MG ORAL TABLET 675306 TRAZODONE HCL Inactive TRAZODONE HCL 100 MG ORAL TABLET 1 every night to prevent headaches TRAZODONE HCL 100 MG ORAL TABLET 779542 TRAZODONE HCL Inactive ZOFRAN 4 MG ORAL TABLET 1 po q4hr PRN Nausea ZOFRAN 4 MG ORAL TABLET 989854 ONDANSETRON HCL Inactive ACYCLOVIR 400 MG ORAL TABLET 1 pill three times daily x 5 days, for cold sore outbreak ACYCLOVIR 400 MG ORAL TABLET 780768 ACYCLOVIR Inactive FLUVOXAMINE MALEATE 100 MG ORAL TABLET take one tab every AM et HS, and take 1 /2 tab at noon FLUVOXAMINE MALEATE 100 MG ORAL TABLET 309882 FLUVOXAMINE MALEATE Inactive FLUVOXAMINE MALEATE 100 MG ORAL TABLET Take 1/2 tab at noon 03/04 FLUVOXAMINE MALEATE 100 MG ORAL TABLET 739700 FLUVOXAMINE MALEATE Inactive FLUVOXAMINE MALEATE 100 MG ORAL TABLET Take one (1) tablet by mouth am, 1/2 at noon FLUVOXAMINE MALEATE 100 MG ORAL TABLET 057271 FLUVOXAMINE MALEATE Inactive FLUVOXAMINE MALEATE 50 MG ORAL TABLET 1 tab by mouth daily 04/01 FLUVOXAMINE MALEATE 50 MG ORAL TABLET 877998 FLUVOXAMINE MALEATE Inactive ZOLPIDEM TARTRATE 10 MG ORAL TABLET take at bedtime ZOLPIDEM TARTRATE 10 MG ORAL TABLET 178313 ZOLPIDEM TARTRATE Inactive VERAPAMIL HCL ER 120 [...] every evening ZYPREXA 5 MG ORAL TABLET 657341 OLANZAPINE Inactive ZYPREXA 7.5 MG ORAL TABLET 1 at HS ZYPREXA 7.5 MG ORAL TABLET 529967 OLANZAPINE Inactive ZYPREXA 10 MG ORAL TABLET Take one by mouth daily ZYPREXA 10 MG ORAL TABLET 972533 OLANZAPINE Inactive BD INSULIN SYRINGE 28G X 1/2" 1 ML 1 four times per day BD INSULIN SYRINGE 28G X 1/2" 1 ML INSULIN SYRINGE-NEEDLE U-100 Inactive AZITHROMYCIN 500 MG INTRAVENOUS SOLUTION RECONSTITUTED 1 po q day AZITHROMYCIN 500 MG INTRAVENOUS SOLUTION RECONSTITUTED 70587498966 AZITHROMYCIN Inactive BACTROBAN 2 % EXTERNAL CREAM Apply to affected area BID for up to 10 days BACTROBAN 2 % EXTERNAL CREAM 082691 MUPIROCIN CALCIUM Inactive BACTROBAN 2 % EXTERNAL CREAM apply to ear and nose twice daily BACTROBAN 2 % EXTERNAL CREAM 101754 MUPIROCIN CALCIUM Inactive CEFDINIR 300 MG ORAL CAPSULE by mouth twice a day CEFDINIR 300 MG ORAL CAPSULE 622421 CEFDINIR Inactive TOLTERODINE TARTRATE 2 MG ORAL TABLET 1 pill twice daily, for bladder TOLTERODINE TARTRATE 2 MG ORAL TABLET 717726 TOLTERODINE TARTRATE Inactive ZYPREXA 15 MG ORAL TABLET Take 1 tablet by mouth daily ZYPREXA 15 MG ORAL TABLET 421103 OLANZAPINE Inactive METFORMIN HCL ER 500 MG [...] for pain HYDROCODONE-ACETAMINOPHEN 5-325 MG ORAL TABLET 072312 HYDROCODONE-ACETAMINOPHEN Inactive HYDROCODONE-ACETAMINOPHEN 5-325 MG ORAL TABLET take one tablet by mouth every four hours as needed for pain HYDROCODONE-ACETAMINOPHEN 5-325 MG ORAL TABLET 315651 HYDROCODONE-ACETAMINOPHEN Inactive HYDROCODONE-ACETAMINOPHEN 7.5-325 MG ORAL TABLET 1 four times a day as needed for pain HYDROCODONE-ACETAMINOPHEN 7.5-325 MG ORAL TABLET 305170 HYDROCODONE-ACETAMINOPHEN Inactive TYLENOL 8 HOUR 650 MG [...] days FLUTICASONE PROPIONATE 50 MCG/ACT NASAL SUSPENSION 6585272 FLUTICASONE PROPIONATE Inactive AMITIZA 24 MCG ORAL [...] (for triglycerides) LOVAZA 1 GM ORAL CAPSULE 285631 [id number] ETHYL ESTERS Inactive NOVOFINE 32G X 6 [...] MG SUBLINGUAL TABLET SUBLINGUAL ASENAPINE MALEATE Inactive [facility] LUBRICANT EYE DROPS 0.4-0.3 % OPHTHALMIC SOLUTION [facility] LUBRICANT EYE DROPS 0.4-0.3 % OPHTHALMIC SOLUTION POLYETHYL GLYCOL- PROPYL GLYCOL Inactive TRUEPLUS LANCETS 30G 3x a day TRUEPLUS LANCETS 30G 25452874857 LANCETS Inactive TRUEPLUS LANCETS 30G 3 a day TRUEPLUS LANCETS 30G 42890136708 LANCETS Inactive EQL TRUETEST TEST IN VITRO [...] FLONASE ALLERGY RELIEF 50 MCG/ACT NASAL SUSPENSION 1928536 FLUTICASONE PROPIONATE Inactive Immunizations Vaccine Administration Date [...] Fluvirin, Fluarix, Agriflu(>=18 yo)) Fluzone (>3 yrs.) [[id number]] Influenza, seasonal, injectable pneumococcal immunization administered Pneumovax [...] ... - Chemistry sodium, serum 135 mmol/L 197-735 2267/08/22 carbon dioxide, venous blood 28.4 mmol/L 21.0-32.0 [...] mg/g {creat} 0-29 cholesterol, serum 263 mg/dL 847-723 1329/08/22 triglyceride, serum, fasting 1312 mg/dL 30-200 HDL [...] 80 mg/L 0-19 Office Visit: TCM from [facility] - Lab PSA (prostate specific antigent), recommendation and action PSA ordered Encounters Code Encounter Date Provider Facility CPT-36655 Level 3 Est. Patient 09:12:14 SUPPORT SERVICES TECH Mima Jeffliudmila [facility] CPT-51538 Level 3 Est. Patient 16:52:51 CDT Vanessa Hickey MD [facility]-21094 Level 3 Est. Patient 17:40:16 CDT Mima Erazo [facility]-20786 Level 3 Est. Patient 14:34:52 CDT Vanessa Hickey MD [facility]-42578 Level 3 Est. Patient 16:27:[address] [facility]-85759 Level 3 Est. Patient 14:39:00 SUPPORT SERVICES TECH Vanessa Hickey MD [facility]-31225 Level 2 Est. Patient 18:43:34 CDT Mima Erazo [facility] CPT-68953 Level 3 Est. Patient 16:22:09 CDT Cherelle Avila [facility] CPT-04409 Level 4 Est. Patient 17:55:14 CDT Mima Erazo [facility] CPT-34409 Level 2 Est. Patient 17:13:21 CDT Alina Castaneda MD [facility]-04722 Level 3 Est. Patient 14:46:15 CDT Vanessa Hickey MD [facility]-85726 Level 3 Est. Patient 09:34:56 CDT Alina Csataneda MD [facility]-03344 Level 3 Est. Patient 21:40:19 CDT Mima Jeffliudmila [facility] CPT-93875 Level 3 Est. Patient 09:26:40 CDT Marvel Charles [facility]-91006 Level 3 Est. Patient 12:36:43 CDT Vanessa Hickey MD [facility]-62046 Level 3 Est. Patient 12:57:49 CDT Vanessa Hickey MD [facility]-21860 Level 3 Est. Patient 00:28:25 CDT Alina Castaneda MD [facility]24713 Level 2 Est. Patient 12:52:14 CDT Alina Castaneda MD [facility]08791 Level 3 Est. Patient 11:51:18 SUPPORT SERVICES TECH Alina Castaneda MD [facility]-49764 Level 3 Est. Patient 10:09:22 SUPPORT SERVICES TECH Alina Castaneda MD [facility]48907 Level 3 Est. Patient 14:36:26 SUPPORT SERVICES TECH Marvel Charles [facility]-68476 Level 3 Est. Patient 13:34:47 SUPPORT SERVICES TECH Alina Castaneda MD [facility]36913 Level 3 Est. Patient 19:52:08 SUPPORT SERVICES TECH Alina Castaneda MD [facility]-91291 Level 3 Est. Patient 10:01:51 SUPPORT SERVICES TECH Marvel Charles [facility] - [employer]-86628 Level 3 Est. Patient 21:54:06 CDT Vanessa Hickey MD [facility]-88609 Level 3 Est. Patient 08:54:46 CDT Alina Castaneda MD [facility]75931 Level 3 Est. Patient 09:32:11 CDT [facility] [employer]-61257 Level 3 Est. Patient 12:02:49 CDT Alina Castaneda MD [facility]59918 Level 3 Est. Patient 19:17:33 CDT Alina Castaneda MD [facility]73374 Level 3 Est. Patient 13:19:10 CDT [facility] [employer]-04235 Level 3 Est. Patient 08:20:05 CDT Alina Castaneda MD [facility]-08435 Level 3 Est. Patient 15:17:18 CDT Alina Castaneda MD [facility]11051 Level 3 Est. Patient 14:25:36 SUPPORT SERVICES TECH [facility] [employer]-44436 Level 3 Est. Patient 10:09:15 SUPPORT SERVICES TECH [facility] [employer]-08517 Level 3 Est. Patient 21:28:43 CDT Alina Castaneda MD [facility]10434 Level 3 Est. Patient 15:20:11 CDT [facility] [employer]-77714 Level 4 Est. Patient 19:08:12 CDT Alina Castaneda MD [facility]-51690 Level 3 Est. Patient 15:06:39 CDT [facility] [employer]-51600 Level 4 Est. Patient 17:48:15 CDT Alina Castaneda MD [facility]-71690 Level 3 Est. Patient 14:53:49 CDT Alina Castaneda MD [facility]-54538 Level 3 Est. Patient 09:35:16 CDT Alina Castaneda MD [facility]-58784 Level 3 Est. Patient 12:23:22 CDT Alina Castaneda MD [facility]15072 Level 3 Est. Patient 16:19:15 CDT Alina Castaneda MD [facility]-39725 Level 3 Est. Patient 21:39:56 SUPPORT SERVICES TECH Alina Castaneda MD [facility]-65221 Level 4 Est. Patient 14:12:56 SUPPORT SERVICES TECH Alina Castaneda MD [facility]-48766 Level 2 Est. Patient 15:34:57 SUPPORT SERVICES TECH Alina Castaneda MD [facility]63545 Level 3 Est. Patient 12:17:04 SUPPORT SERVICES TECH Alina Castaneda MD [facility]74088 Level 3 Est. Patient 09:18:18 SUPPORT SERVICES TECH [facility] [employer]-22555 Level 2 Est. Patient 21:50:24 CDT Alina Castaneda MD [facility]57878 Level 3 Est. Patient 09:17:28 CDT [facility] [employer]-00622 Level 4 Est. Patient 18:54:02 CDT Alina Castaneda MD [facility]-16373 Level 3 Est. Patient 10:47:10 CDT Alina Castaneda MD [facility]-86508 Level 3 Est. Patient 09:22:20 CDT [facility] [employer]-19097 Level 3 Est. Patient 16:39:43 CDT [facility] [employer]-77531 Level 3 Est. Patient 16:05:16 CDT Alina Castaneda MD [facility]-72923 Level 3 Est. Patient 00:29:15 CDT Alina Castaneda MD [facility]01636 Level 3 Est. Patient 10:49:22 SUPPORT SERVICES TECH [facility] [employer]-07519 Level 3 Est. Patient 21:30:19 SUPPORT SERVICES TECH Alina Castaneda MD PhD [facility] CPT-46490 Level 4 Est. Patient 17:04:11 SUPPORT SERVICES TECH [place] [facility] CPT-73942 Level 3 Est. Patient 15:34:11 [facility] CPT-95157 Level 2 Est. Patient 12:51:58 SUPPORT SERVICES TECH Alina Castaneda MD PhD [facility] CPT-58909 Level 3 Est. Patient 13:20:01 SUPPORT SERVICES TECH Alina Castaneda MD PhD [facility] CPT-06041 Level 3 Est. Patient 09:23:35 CDT Alina Castaneda MD PhD [facility] Procedures Code Procedure Name Date Entry Date Standard Description CPT-TCMM Transitional Care Mgmt-Moderate 12:32:19 CDT CPT-38957 Level 2 Skilled Nursing 09:01:11 CDT CPT-70500 HGBA1C - LAB USE ONLY 09:30:27 SUPPORT SERVICES TECH CPT-23170 BMP - LAB USE ONLY 09:30:27 SUPPORT SERVICES TECH CPT-96100 Venipuncture Draw Fee 09:30:26 SUPPORT SERVICES TECH CPT-TCMM Transitional Care Mgmt-Moderate 10:25:31 CDT CPT-17722 Bladder Scan 14:34:53 CDT CPT-44579 Bladder Scan 14:39:01 SUPPORT SERVICES TECH CPT-TCMM Transitional Care Mgmt-Moderate 10:30:19 SUPPORT SERVICES TECH CPT-91081 Bladder Scan 12:36:44 CDT CPT-87028 Bladder Scan 21:54:06 CDT CPT-G0008 Administration of Influenza Virus Vaccine 13:05:26 CDT CPT-45776 Fluzone Quadrivalent Intramuscular Suspension 0.5 ML 13: 05:26 CDT CPT-42026 Administration single or combination vaccine inc oral 11 :49:51 CDT CPT-80161 Pneumovax 11:49:51 CDT CPT-34600 Ribs unilateral 2V 12:37:22 SUPPORT SERVICES TECH CPT-84722 Chest 2V Frontal and Lat 17:15:26 CDT CPT-90960 Abx/Therapy Injection 18:54:02 CDT CPT-J0696 Rocephin 1000 mg (Ceftriaxone) 16:00:32 CDT CPT-95473 Chest 2V Frontal and Lat 15:26:45 CDT CPT-39937 Chest 2V Frontal and Lat 10:23:27 CDT CPT-66587 Venipuncture Draw Fee 10:11:00 CDT CPT-53558 Administration single or combination vaccine inc oral 11 :56:38 CDT CPT-70664 Influenza split virus > age 3 11:56:38 CDT CPT-25300 Venipuncture Draw Fee 08:49:54 SUPPORT SERVICES TECH CPT-96095 EKG Trac and Interp 17:54:19 SUPPORT SERVICES TECH
--- OUTSIDE RECORDS SUMMARY | 2018-07-02 12:52 | XMS REPORT | Clinical Summary ---
Author Author Admin, TERELL Organization [employer] Address Unknown Phone Unavailable Allergies, Adverse Reactions, [...] MD PhD Cough SINUSITIS, ACUTE 461.9 Resolved lAina Castaneda MD PhD Acute sinusitis, unspecified BRONCHITIS, [...] pill by mouth two times daily CLONAZEPAM 92000544716 Active Gabrielle Marquez MA Active FENOFIBRATE 160 MG ORAL TABLET Take 1 tablet by mouth daily FENOFIBRATE 06732944932 Active Mya LedezmaBERT Active SEROQUEL 50 MG ORAL TABLET Take Give 1 tablet by mouth at bedtime QUETIAPINE FUMARATE 02971714266 Active Mason Loredo MD Active OCEAN NASAL SPRAY SOLUTION 2 sprays in both nostrils every 8 hours as needed for dry mucous membranes SALINE SOLN 78870364705 Active Mason Loredo MD Active BETHANECHOL CHLORIDE 25 MG ORAL TABLET Take 1 tablet mouth four times a day BETHANECHOL CHLORIDE 19723352795 Active Mason Loredo MD Active [facility] LUBRICANT E[facility] DROPS 0.4-0.3 % OPHTHALMIC SOLUTION POLYETHYL GLYCOL-PROPYL GLYCOL 84097820890 No Longer Active Mason Loredo MD Active TYLENOL 8 HOUR 650 MG ORAL TABLET EXTENDED RELEASE 1 tab QID prn ACETAMINOPHEN 32167354694 No Longer Active Mason Loredo MD Active TOPAMAX 25 MG ORAL TABLET 1 tab BID PRN TOPIRAMATE 14005941748 Active Mason Loredo MD Active TIMOPTIC OCUDOSE 0.5 % OPHTHALMIC SOLUTION instill one drop into both eyes q12H TIMOLOL MALEATE 20574527756 Active Mason Loredo MD Active TRAZODONE HCL 100 MG ORAL TABLET 1 every night to prevent headaches TRAZODONE HCL 02894508317 No Longer Active aMson Loredo MD Active TRAVATAN Z 0.004 % OPHTHALMIC SOLUTION 1 drop each eye daily 2017 TRAVOPROST 98663662489 No Longer Active Mason Loredo MD Active LATUDA 60 MG ORAL TABLET 1 tab daily LURASIDONE HCL 76500061394 No Longer Active Mason Loredo MD Active MORPHINE SULFATE ER 30 MG ORAL TABLET EXTENDED RELEASE Take one capsule BID MORPHINE SULFATE 59691806952 No Longer Active Mason Loredo MD Active TRUE METRIX BLOOD GLUCOSE TEST IN VITRO STRIP Check blood sugars 3x/day. 2015 GLUCOSE BLOOD 52521703875 No Longer Active Mason Loredo MD Active TRUEPLUS LANCETS 30G 3x a day LANCETS 75802014791 No Longer Active Mason Loredo MD Active MYLANTA GAS RELIEF MAXIMUM STR 125 MG ORAL CAPSULE 30cc every 4 hours prn SIMETHICONE 40241707042 No Longer Active Mason Loredo MD Active IMODIUM A-D 2 MG ORAL TABLET 1 tab QID as needed LOPERAMIDE HCL 47246002415 No Longer Active Mason Loredo MD Active FLONASE ALLERGY RELIEF 50 MCG/ACT NASAL SUSPENSION One spray each nostril BID x 1 week then daily FLUTICASONE PROPIONATE 84155656200 No Longer Active Mason Loredo MD Active FLUVOXAMINE MALEATE 100 MG ORAL TABLET take one tab every AM et HS, and take 1 /2 tab at noon FLUVOXAMINE MALEATE 06458183013 No Longer Active Mason Loredo MD Active BD PEN NEEDLE MINI U/F 31G X 5 MM 4 a day INSULIN PEN NEEDLE 17782447132 No Longer Active Mason Loredo MD Active AMITIZA 24 MCG ORAL CAPSULE Take one capsule BID for constipation LUBIPROSTONE 40322295080 No Longer Active Mason Loredo MD Active TRUEPLUS LANCETS 30G 3 a day LANCETS 43946711591 No Longer Active Mason Loredo MD Active CORICIDIN HBP CONGESTION/COUGH 10-200 MG ORAL CAPSULE Take as directed on box as needed for cold/flu symptoms DEXTROMETHORPHAN- GUAIFENESIN 02032691037 No Longer Active Mason Loredo MD Active OMEGA-3 300 MG ORAL CAPSULE 4 caps by mouth daily OMEGA-3 FATTY ACIDS 64705379292 No Longer Active Mason Loredo MD Active HUMALOG KWIKPEN 100 UNIT/ML SUBCUTANEOUS SOLUTION PEN-INJECTOR sliding scale if needed INSULIN LISPRO (HUMAN) 50625184465 No Longer Active Mason Loredo MD Active TRUETEST TEST IN VITRO STRIP check blood sugars 3x/day GLUCOSE BLOOD 39313427817 No Longer Active Mason Loredo MD Active ALFUZOSIN HCL ER 10 MG ORAL TABLET EXTENDED RELEASE 24 HOUR 1 tablet daily ALFUZOSIN HCL 02467791538 No Longer Active Mason Loredo MD Active BD INSULIN SYRINGE 28G X 1/2" 1 ML 1 four times per day INSULIN SYRINGE-NEEDLE U-100 71095439178 No Longer Active Mason Loredo MD Active LEVEMIR FLEXTOUCH 100 UNIT/ML SUBCUTANEOUS SOLUTION PEN-INJECTOR 60 units SQ each evening, for diabetes INSULIN DETEMIR 69497522772 No Longer Active Mason Loredo MD Active METFORMIN HCL ER (MOD) 500 MG ORAL TABLET EXTENDED RELEASE 24 HOUR give two tabs PO BID METFORMIN HCL 57498575296 Active Mason Loredo MD Active LACTULOSE 20 GM/30ML ORAL SOLUTION give 30 Ml PO BID PRN LACTULOSE 03281767829 Active Mason Loredo MD Active COLACE 100 MG ORAL CAPSULE 1 tab BID PRN DOCUSATE SODIUM 80267694112 Active Mason Loredo MD Active TAMSULOSIN HCL 0.4 MG ORAL CAPSULE give 2 capsules PO each evening TAMSULOSIN HCL 62167672817 Active Mason Loredo MD Active [facility] MELATONIN 3 MG ORAL TABLET give 1 tab by mouth at HS MELATONIN 49918465365 Active Mason Loredo MD Active LATANOPROST 0.005 % OPHTHALMIC SOLUTION instill 1 drop in both eyes at bed time LATANOPROST 68503438140 Active Mason Loredo MD Active AMARYL 2 MG ORAL TABLET give 2.5 tabs PO daily GLIMEPIRIDE 29033995604 Active Mason Loredo MD Active MIRALAX ORAL POWDER 17g by mouth q12h, for constipation POLYETHYLENE GLYCOL 3350 34205524121 Active Mason Loredo MD Active IBUPROFEN 400 MG ORAL TABLET 1 tab Q6H PRN IBUPROFEN 59749254609 Active Mason Loredo MD Active EFFEXOR XR 37.5 MG ORAL CAPSULE EXTENDED RELEASE 24 HOUR Take one by mouth daily VENLAFAXINE HCL 23753944070 Active Mima Erazo ALBAN Active FLUVOXAMINE MALEATE 50 MG ORAL TABLET 1 tab by mouth daily 04/01 FLUVOXAMINE MALEATE 49936270448 No Longer Active Mima Erazo ALBAN Active TRUE METRIX METER w/Device KIT Check blood sugars 3x/day BLOOD GLUCOSE MONITORING SUPPL 04428519166 Active Marvel Charles BANKING ATTORNEY Active VITAMIN D 2000 UNIT ORAL CAPSULE Take one by mouth daily CHOLECALCIFEROL 82836758859 Active Mima Erazo ALBAN Active LATUDA 60 MG ORAL TABLET Take one by mouth daily LURASIDONE HCL 48017563884 No Longer Active Mimacecily Erazo APRN Active [facility] MILK OF MAGNESIA 400 MG/5ML ORAL SUSPENSION 30ml by mouth bid prn MAGNESIUM HYDROXIDE 65738285545 Active Mason Loredo MD Active TRAVATAN Z 0.004 % OPHTHALMIC SOLUTION 1 gtt each eye daily TRAVOPROST 62389929306 No Longer Active Mason Loredo MD Active LISINOPRIL 20 MG ORAL TABLET 1 BID LISINOPRIL 33849174773 No Longer Active Mason Loredo MD Active ZOLPIDEM TARTRATE 10 MG ORAL TABLET take at bedtime ZOLPIDEM TARTRATE 22343597519 No Longer Active Mason Loredo MD Active HYDROCODONE-ACETAMINOPHEN 5-325 MG ORAL TABLET 2 tabs by mouth three times daily for pain HYDROCODONE-ACETAMINOPHEN 72304542903 No Longer Active Mason Loredo MD Active ZOFRAN 4 MG ORAL TABLET 1 po q4hr PRN Nausea ONDANSETRON HCL 27490315993 No Longer Active Mason Loredo MD Active LOMOTIL 2.5-0.025 MG ORAL TABLET take 1-2 tabs PO after each stool, no more than 8 in 24 hours DIPHENOXYLATE-ATROPINE 22644919223 No Longer Active Mason Loredo MD Active COLACE 100 MG ORAL CAPSULE 1 pill by mouth twice daily, for constipation 2014 DOCUSATE SODIUM 59438063121 No Longer Active Mima Erazo APRN Active TOLTERODINE TARTRATE 2 MG ORAL TABLET 1 pill twice daily, for bladder TOLTERODINE TARTRATE 30538762067 No Longer Active Vanessa Hickey MD Active AMITIZA 24 MCG ORAL CAPSULE Take one capsule BID for constipation. LUBIPROSTONE 79930638009 No Longer Active Vanessa Hickey MD Active METOPROLOL SUCCINATE ER 100 MG ORAL TABLET EXTENDED RELEASE 24 HOUR 1 by mouth daily for blood pressure METOPROLOL SUCCINATE 60758140891 No Longer Active Grace Nascimento RMA Active METFORMIN HCL ER 500 MG ORAL TABLET EXTENDED RELEASE 24 HOUR Take three tablets by mouth everyday METFORMIN HCL 21560361260 No Longer Active Grace Azam RMA Active LOVAZA 1 GM ORAL CAPSULE 4 daily (for triglycerides) [id number] ETHYL ESTERS 55311801384 No Longer Active Grace Azam RMA Active TRAZODONE HCL 100 MG ORAL TABLET 1 tab by mouth for sleep TRAZODONE HCL 95674521337 No Longer Active Grace Azam RMA Active NOVOFINE 32G X 6 MM use one four times per day INSULIN PEN NEEDLE 40160643247 No Longer Active Grace Azam RMA Active BACTROBAN 2 % EXTERNAL CREAM Apply to affected area BID for up to 10 days MUPIROCIN CALCIUM 72887199152 No Longer Active Grace Azam RMA Active KEFLEX 500 MG ORAL CAPSULE 1 po BID x 7 days CEPHALEXIN 61139047875 No Longer Active Cherelle Avila APRN Active FLUVOXAMINE MALEATE 100 MG ORAL TABLET Take one (1) tablet by mouth am, 1/2 at noon FLUVOXAMINE MALEATE 14770632052 No Longer Active Mima Erazo ALBAN Active FLUVOXAMINE MALEATE 100 MG ORAL TABLET Take 1/2 tab at noon 03/04 FLUVOXAMINE MALEATE 46793111473 No Longer Active Cherelle Avila ALBAN Active ACCU-CHEK ROSA DEVICE Use device to check blood sugars BLOOD GLUCOSE MONITORING SUPPL 17186737871 No Longer Active Maljohn Mackenzieglari BANKING ATTORNEY Active ACCU-CHEK ROSA IN VITRO STRIP use strips with device to check blood sugars 3 times daily GLUCOSE BLOOD 83344211647 No Longer Active Maljohn Mackenzieglari BANKING ATTORNEY Active VERAPAMIL HCL ER 180 MG ORAL TABLET EXTENDED RELEASE 1 pill by mouth twice daily, for migraine prevention VERAPAMIL HCL 57793826363 Active Mima Erazo ALBAN Active CYCLOBENZAPRINE HCL 10 MG ORAL TABLET 1 tablet by mouth three times daily, scheduled CYCLOBENZAPRINE HCL 83861232124 No Longer Active Alina Castaneda MD PhD Active HUMALOG 100 UNIT/ML SUBCUTANEOUS SOLUTION Take 20 units with breakfast, 10u with lunch and suppetr. INSULIN LISPRO (HUMAN) 82734703987 No Longer Active Alina Castaneda MD PhD Active TRUETEST TEST IN VITRO STRIP check sugars 4x/day GLUCOSE BLOOD 74139909789 No Longer Active Alina Castaneda MD PhD Active MORPHINE SULFATE 30 MG ORAL TABLET 1 pill by mouth twice daily, for pain 2013 MORPHINE SULFATE 08068298594 No Longer Active Mason Loredo MD Active ACYCLOVIR 400 MG ORAL TABLET 1 pill three times daily x 5 days, for cold sore outbreak ACYCLOVIR 07639527727 No Longer Active Alina Castaneda MD PhD Active PENICILLIN V POTASSIUM 500 MG ORAL TABLET 1 pill by mouth three times daily PENICILLIN V POTASSIUM 36058020615 No Longer Active Alina Castaneda MD PhD Active UROXATRAL 10 MG ORAL TABLET EXTENDED RELEASE 24 HOUR Take 1 tablet by mouth daily ALFUZOSIN HCL 50647578108 No Longer Active Alina Castaneda MD PhD Active THIOTHIXENE 5 MG ORAL CAPSULE by mouth twice a day THIOTHIXENE 60505452971 No Longer Active Alina Castaneda MD PhD Active ZYPREXA 7.5 MG ORAL TABLET 1 at HS OLANZAPINE 34476574577 No Longer Active Alina Castaneda MD PhD Active DETROL LA 4 MG ORAL CAPSULE EXTENDED RELEASE 24 HOUR Take 1 tablet by mouth daily TOLTERODINE TARTRATE 87088858416 No Longer Active Alina Castaneda MD PhD Active TERESE CONTOUR TEST IN VITRO STRIP monitor blood sugars 3x/day GLUCOSE BLOOD 37840366394 No Longer Active Alina Castaneda MD PhD Active EQL TRUETEST TEST IN VITRO STRIP Test blood sugar TID GLUCOSE BLOOD 30892897061 No Longer Active Alina Castaneda MD PhD Active FLUTICASONE PROPIONATE 50 MCG/ACT NASAL SUSPENSION 2 sprays each nostril qDay x 30 days FLUTICASONE PROPIONATE 39039547233 No Longer Active Alina Castaneda MD PhD Active IBUPROFEN 200 MG ORAL TABLET 1 Q 6 hr. PRN IBUPROFEN 45176939342 No Longer Active Alina Castaneda MD PhD Active NIACIN ER 500 MG ORAL TABLET EXTENDED RELEASE 4 qHS (for triglycerides) 01/13 NIACIN 80503544912 No Longer Active Alina Castaneda MD PhD Active SAPHRIS 5 MG SUBLINGUAL TABLET SUBLINGUAL by mouth twice a day ASENAPINE MALEATE 83167376432 No Longer Active Maljohn Ziglari LOPEZ Active ACETAMINOPHEN 500 MG ORAL TABLET 2 Q 6 hr. PRN ACETAMINOPHEN 58456514276 No Longer Active Maliheh Ziglari BANKING ATTORNEY Active ORPHENADRINE CITRATE ER 100 MG ORAL TABLET EXTENDED RELEASE 12 HOUR 1 every 12 hr. as needed ORPHENADRINE CITRATE 10338677921 No Longer Active Alina Castaneda MD PhD Active NIACIN ER 500 MG ORAL TABLET EXTENDED RELEASE 2 qHS NIACIN 36093564598 No Longer Active Alina Castaneda MD PhD Active AMOXICILLIN 500 MG ORAL CAPSULE 2 po BID x 10 days AMOXICILLIN 07315010266 No Longer Active Alina Castaneda MD PhD Active HYDROCODONE-ACETAMINOPHEN 7.5-325 MG ORAL TABLET 1 four times a day as needed for pain HYDROCODONE-ACETAMINOPHEN 66170744405 No Longer Active Alina Castaneda MD PhD Active DOXEPIN HCL 10 MG ORAL CAPSULE Take 1 tablet by mouth daily DOXEPIN HCL 40210749371 No Longer Active Salina Ervinford [facility] Active NAVANE 10 MG CAPS 1/2 tablet twice a day THIOTHIXENE No Longer Active Salina Ervinford [facility] Active CYCLOBENZAPRINE HCL 10 MG ORAL TABLET 1/2 tablet by mouth every 8 hours as needed for muscle spasms CYCLOBENZAPRINE HCL 14734666734 No Longer Active Alina Castaneda MD PhD Active BACTROBAN 2 % EXTERNAL CREAM apply to ear and nose twice daily MUPIROCIN CALCIUM 12337349780 No Longer Active Alina Castaneda MD PhD Active HYDROCODONE-ACETAMINOPHEN 5-325 MG ORAL TABLET take one tablet by mouth every four hours as needed for pain HYDROCODONE-ACETAMINOPHEN 21953541223 No Longer Active Alina Castaneda MD PhD Active ZYPREXA 5 MG ORAL TABLET take one tablet by mouth every evening OLANZAPINE 59360031916 No Longer Active Alina Castaneda MD PhD Active ALBUTEROL SULFATE (2.5 MG/3ML) 0.083% INHALATION NEBULIZATION SOLUTION one vial per nebulizer TID and PRN cough/soa ALBUTEROL SULFATE 80214492250 No Longer Active Alina Castaneda MD PhD Active GUAIFENESIN ER 600 MG ORAL TABLET EXTENDED RELEASE 12 HOUR 1 tablet by mouth twice daily if needed for cough GUAIFENESIN 97414816148 No Longer Active Marvel MARROQUIN Active AZITHROMYCIN 500 MG INTRAVENOUS SOLUTION RECONSTITUTED 1 po q day AZITHROMYCIN 90611613287 No Longer Active Alina Castaneda MD PhD Active PROMETHAZINE-CODEINE 6.25-10 MG/5ML ORAL SYRUP 1 tsp po q 6 hours prn cough PROMETHAZINE-CODEINE 24426682286 No Longer Active Alina Castaneda MD PhD Active CEFDINIR 300 MG ORAL CAPSULE by mouth twice a day CEFDINIR 34675282247 No Longer Active Alina Castaneda MD PhD Active METFORMIN HCL ER 500 MG ORAL TABLET EXTENDED RELEASE 24 HOUR Take 3 tablets by mouth everyday METFORMIN HCL 07528338121 No Longer Active Alina Castaneda MD PhD Active LEVEMIR 100 UNIT/ML SUBCUTANEOUS SOLUTION 90 units SQ qHS INSULIN DETEMIR 22603091434 No Longer Active Marvel MARROQUIN Active TOPROL XL 100 MG ORAL TABLET EXTENDED RELEASE 24 HOUR 1 @ HS METOPROLOL SUCCINATE 50863366431 No Longer Active Marvel MARROQUIN Active ALLOPURINOL 300 MG ORAL TABLET Take one by mouth daily ALLOPURINOL 44021972018 Active Mima Erazo APRN Active ZYPREXA 10 MG ORAL TABLET Take one by mouth daily OLANZAPINE 16811516051 No Longer Active Alina Castaneda MD PhD Active NOVOLOG 100 UNIT/ML SUBCUTANEOUS SOLUTION 40 units with every meal INSULIN ASPART 00000141074 No Longer Active Alina Castaneda MD PhD Active VERAPAMIL HCL ER 120 MG ORAL TABLET EXTENDED RELEASE 1 qPM 09/08 VERAPAMIL HCL 76336163211 No Longer Active Salina ROJAS Active ZYPREXA 15 MG ORAL TABLET Take 1 tablet by mouth daily OLANZAPINE 66408027888 No Longer Active Marvel MARROQUIN Active ALBUTEROL SULFATE (2.5 MG/3ML) 0.083% INHALATION NEBULIZATION SOLUTION 1 neb tid and prn cough ALBUTEROL SULFATE 79675553025 No Longer Active Alina Castaneda MD PhD Active LANTUS 100 UNIT/ML SUBCUTANEOUS SOLUTION 60 units sq q hs INSULIN GLARGINE 21912616746 No Longer Active CRYSTAL Suarez Active ALBUTEROL SULFATE (2.5 MG/3ML) 0.083% INHALATION NEBULIZATION SOLUTION 1 neb tid and prn cough ALBUTEROL SULFATE (2.5 MG/3ML) 0.083% INHALATION NEBULIZATION SOLUTION 073514 ALBUTEROL SULFATE Inactive ZYPREXA 15 MG ORAL TABLET Take 1 tablet by mouth daily ZYPREXA 15 MG ORAL TABLET 909205 OLANZAPINE Inactive VERAPAMIL HCL ER 120 MG ORAL TABLET EXTENDED RELEASE 1 qPM 09/08 VERAPAMIL HCL ER 120 MG ORAL TABLET EXTENDED RELEASE VERAPAMIL HCL Inactive ZYPREXA 10 MG ORAL TABLET Take one by mouth daily ZYPREXA 10 MG ORAL TABLET 870862 OLANZAPINE Inactive TOPROL XL 100 MG ORAL TABLET EXTENDED RELEASE 24 HOUR 1 @ HS TOPROL XL 100 MG ORAL TABLET EXTENDED RELEASE 24 HOUR METOPROLOL SUCCINATE Inactive LEVEMIR 100 UNIT/ML SUBCUTANEOUS SOLUTION 90 units SQ qHS LEVEMIR 100 UNIT/ML SUBCUTANEOUS SOLUTION INSULIN DETEMIR Inactive PROMETHAZINE-CODEINE 6.25-10 MG/5ML ORAL SYRUP 1 tsp po q 6 hours prn cough PROMETHAZINE-CODEINE 6.25-10 MG/5ML ORAL SYRUP 979819 PROMETHAZINE-CODEINE Inactive GUAIFENESIN ER 600 MG ORAL TABLET EXTENDED RELEASE 12 HOUR 1 tablet by mouth twice daily if needed for cough GUAIFENESIN ER 600 MG ORAL TABLET EXTENDED RELEASE 12 HOUR GUAIFENESIN Inactive ALBUTEROL SULFATE (2.5 MG/3ML) 0.083% INHALATION NEBULIZATION SOLUTION one vial per nebulizer TID and PRN cough/soa ALBUTEROL SULFATE (2.5 MG/3ML) 0.083% INHALATION NEBULIZATION SOLUTION 080857 ALBUTEROL SULFATE Inactive ZYPREXA 5 MG ORAL TABLET take one tablet by mouth every evening ZYPREXA 5 MG ORAL TABLET 597320 OLANZAPINE Inactive HYDROCODONE-ACETAMINOPHEN 5-325 MG ORAL TABLET take one tablet by mouth every four hours as needed for pain HYDROCODONE-ACETAMINOPHEN 5-325 MG ORAL TABLET 082422 HYDROCODONE-ACETAMINOPHEN Inactive BACTROBAN 2 % EXTERNAL CREAM apply to ear and nose twice daily BACTROBAN 2 % EXTERNAL CREAM 798081 MUPIROCIN CALCIUM Inactive CYCLOBENZAPRINE HCL 10 MG ORAL TABLET 1/2 tablet by mouth every 8 hours as needed for muscle spasms CYCLOBENZAPRINE HCL 10 MG ORAL TABLET 636630 CYCLOBENZAPRINE HCL Inactive NAVANE 10 MG CAPS 1/2 tablet twice a day NAVANE 10 MG CAPS THIOTHIXENE Inactive DOXEPIN HCL 10 MG ORAL CAPSULE Take 1 tablet by mouth daily DOXEPIN HCL 10 MG ORAL CAPSULE 4946143 DOXEPIN HCL Inactive HYDROCODONE-ACETAMINOPHEN 7.5-325 MG ORAL TABLET 1 four times a day as needed for pain HYDROCODONE-ACETAMINOPHEN 7.5-325 MG ORAL TABLET 586497 HYDROCODONE-ACETAMINOPHEN Inactive NIACIN ER 500 MG ORAL [...] hr. PRN ACETAMINOPHEN 500 MG ORAL TABLET 563811 ACETAMINOPHEN Inactive SAPHRIS 5 MG SUBLINGUAL TABLET SUBLINGUAL by mouth twice a day SAPHRIS 5 MG SUBLINGUAL TABLET SUBLINGUAL ASENAPINE MALEATE Inactive NIACIN ER 500 MG ORAL TABLET EXTENDED RELEASE 4 qHS (for triglycerides) 01/13 NIACIN ER 500 MG ORAL TABLET EXTENDED RELEASE NIACIN Inactive IBUPROFEN 200 MG ORAL TABLET 1 Q 6 hr. PRN IBUPROFEN 200 MG ORAL TABLET 274378 IBUPROFEN Inactive FLUTICASONE PROPIONATE 50 MCG/ACT NASAL SUSPENSION 2 sprays each nostril qDay x 30 days FLUTICASONE PROPIONATE 50 MCG/ACT NASAL SUSPENSION 8747892 FLUTICASONE PROPIONATE Inactive EQL TRUETEST TEST IN [...] at HS ZYPREXA 7.5 MG ORAL TABLET 816104 OLANZAPINE Inactive THIOTHIXENE 5 MG ORAL CAPSULE by mouth twice a day THIOTHIXENE 5 MG ORAL CAPSULE 570748 THIOTHIXENE Inactive UROXATRAL 10 MG ORAL TABLET EXTENDED RELEASE 24 HOUR Take 1 tablet by mouth daily UROXATRAL 10 MG ORAL TABLET EXTENDED RELEASE 24 HOUR ALFUZOSIN HCL Inactive ACYCLOVIR 400 MG ORAL TABLET 1 pill three times daily x 5 days, for cold sore outbreak ACYCLOVIR 400 MG ORAL TABLET 317262 ACYCLOVIR Inactive TRUETEST TEST IN VITRO STRIP check sugars 4x/day TRUETEST TEST IN VITRO STRIP GLUCOSE BLOOD Inactive HUMALOG 100 UNIT/ML SUBCUTANEOUS SOLUTION Take 20 units with breakfast, 10u with lunch and suppetr. HUMALOG 100 UNIT/ML SUBCUTANEOUS SOLUTION INSULIN LISPRO (HUMAN) Inactive CYCLOBENZAPRINE HCL 10 MG ORAL TABLET 1 tablet by mouth three times daily, scheduled CYCLOBENZAPRINE HCL 10 MG ORAL TABLET 214222 CYCLOBENZAPRINE HCL Inactive ACCU-CHEK ROSA IN VITRO STRIP use strips with device to check blood sugars 3 times daily ACCU-CHEK ROSA IN VITRO STRIP GLUCOSE BLOOD Inactive ACCU-CHEK ROSA DEVICE Use device to check blood sugars ACCU-CHEK ROSA DEVICE BLOOD GLUCOSE MONITORING SUPPL Inactive FLUVOXAMINE MALEATE 100 MG ORAL TABLET Take 1/2 tab at noon 03/04 FLUVOXAMINE MALEATE 100 MG ORAL TABLET 724376 FLUVOXAMINE MALEATE Inactive FLUVOXAMINE MALEATE 100 MG ORAL TABLET Take one (1) tablet by mouth am, 1/2 at noon FLUVOXAMINE MALEATE 100 MG ORAL TABLET 842073 FLUVOXAMINE MALEATE Inactive BACTROBAN 2 % EXTERNAL CREAM Apply to affected area BID for up to 10 days BACTROBAN 2 % EXTERNAL CREAM 268507 MUPIROCIN CALCIUM Inactive NOVOFINE 32G X 6 MM use one four times per day NOVOFINE 32G X 6 MM INSULIN PEN NEEDLE Inactive TRAZODONE HCL 100 MG ORAL TABLET 1 tab by mouth for sleep TRAZODONE HCL 100 MG ORAL TABLET 766047 TRAZODONE HCL Inactive LOVAZA 1 GM ORAL CAPSULE 4 daily (for triglycerides) LOVAZA 1 GM ORAL CAPSULE 876527 [id number] ETHYL ESTERS Inactive METFORMIN HCL ER 500 [...] bladder TOLTERODINE TARTRATE 2 MG ORAL TABLET 154495 TOLTERODINE TARTRATE Inactive COLACE 100 MG ORAL CAPSULE 1 pill by mouth twice daily, for constipation 2014 COLACE 100 MG ORAL CAPSULE 6706580 DOCUSATE SODIUM Inactive LOMOTIL 2.5-0.025 MG ORAL TABLET take 1-2 tabs PO after each stool, no more than 8 in 24 hours LOMOTIL 2.5-0.025 MG ORAL TABLET 0622881 DIPHENOXYLATE-ATROPINE Inactive ZOFRAN 4 MG ORAL TABLET 1 po q4hr PRN Nausea ZOFRAN 4 MG ORAL TABLET 184761 ONDANSETRON HCL Inactive HYDROCODONE-ACETAMINOPHEN 5-325 MG ORAL TABLET 2 tabs by mouth three times daily for pain HYDROCODONE-ACETAMINOPHEN 5-325 MG ORAL TABLET 149973 HYDROCODONE-ACETAMINOPHEN Inactive ZOLPIDEM TARTRATE 10 MG ORAL TABLET take at bedtime ZOLPIDEM TARTRATE 10 MG ORAL TABLET 299267 ZOLPIDEM TARTRATE Inactive LISINOPRIL 20 MG ORAL TABLET 1 BID LISINOPRIL 20 MG ORAL TABLET 902422 LISINOPRIL Inactive TRAVATAN Z 0.004 % OPHTHALMIC SOLUTION 1 gtt each eye daily TRAVATAN Z 0.004 % OPHTHALMIC SOLUTION TRAVOPROST Inactive LATUDA 60 MG ORAL TABLET Take one by mouth daily LATUDA 60 MG ORAL TABLET LURASIDONE HCL Inactive FLUVOXAMINE MALEATE 50 MG ORAL TABLET 1 tab by mouth daily 04/01 FLUVOXAMINE MALEATE 50 MG ORAL TABLET 587092 FLUVOXAMINE MALEATE Inactive LEVEMIR FLEXTOUCH 100 UNIT/ML [...] 30G 3 a day TRUEPLUS LANCETS 30G [id number] LANCETS Inactive AMITIZA 24 MCG ORAL CAPSULE [...] noon FLUVOXAMINE MALEATE 100 MG ORAL TABLET 695518 FLUVOXAMINE MALEATE Inactive FLONASE ALLERGY RELIEF 50 MCG/ACT NASAL SUSPENSION One spray each nostril BID x 1 week then daily FLONASE ALLERGY RELIEF 50 MCG/ACT NASAL SUSPENSION 8256880 FLUTICASONE PROPIONATE Inactive IMODIUM A-D 2 MG ORAL TABLET 1 tab QID as needed IMODIUM A-D 2 MG ORAL TABLET 014153 LOPERAMIDE HCL Inactive MYLANTA GAS RELIEF MAXIMUM STR 125 MG ORAL CAPSULE 30cc every 4 hours prn MYLANTA GAS RELIEF MAXIMUM STR 125 MG ORAL CAPSULE SIMETHICONE Inactive TRUEPLUS LANCETS 30G 3x a day TRUEPLUS LANCETS 30G 81988819279 LANCETS Inactive TRUE METRIX BLOOD GLUCOSE TEST [...] headaches TRAZODONE HCL 100 MG ORAL TABLET 299087 TRAZODONE HCL Inactive TYLENOL 8 HOUR 650 MG ORAL TABLET EXTENDED RELEASE 1 tab QID prn TYLENOL 8 HOUR 650 MG ORAL TABLET EXTENDED RELEASE ACETAMINOPHEN Inactive [facility] LUBRICANT EYE DROPS 0.4-0.3 % OPHTHALMIC SOLUTION [facility] LUBRICANT EYE DROPS 0.4-0.3 % OPHTHALMIC SOLUTION POLYETHYL GLYCOL- PROPYL GLYCOL Inactive CEFDINIR 300 MG ORAL CAPSULE by mouth twice a day CEFDINIR 300 MG ORAL CAPSULE 501408 CEFDINIR Inactive AZITHROMYCIN 500 MG INTRAVENOUS SOLUTION RECONSTITUTED 1 po q day AZITHROMYCIN 500 MG INTRAVENOUS SOLUTION RECONSTITUTED 74616431100 AZITHROMYCIN Inactive AMOXICILLIN 500 MG ORAL CAPSULE 2 po BID x 10 days AMOXICILLIN 500 MG ORAL CAPSULE 870825 AMOXICILLIN Inactive PENICILLIN V POTASSIUM 500 MG ORAL TABLET 1 pill by mouth three times daily PENICILLIN V POTASSIUM 500 MG ORAL TABLET 139724 PENICILLIN V POTASSIUM Inactive KEFLEX 500 MG ORAL CAPSULE 1 po BID x 7 days KEFLEX 500 MG ORAL CAPSULE 557015 CEPHALEXIN Inactive Immunizations Vaccine Administration Date Value [...] Fluvirin, Fluarix, Agriflu(>=18 yo)) Fluzone (>3 yrs.) [[id number]] Influenza, seasonal, injectable pneumococcal immunization administered Pneumovax [...] ... - Chemistry sodium, serum 135 mmol/L 621-990 9072/08/22 carbon dioxide, venous blood 28.4 mmol/L 21.0-32.0 [...] mg/g {creat} 0-29 cholesterol, serum 263 mg/dL 874-987 3398/08/22 triglyceride, serum, fasting 1312 mg/dL 30-200 HDL [...] ordered Encounters Code Encounter Date Provider Facility [id number] Level 3 Est. 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 CPT-72850 Level 3 Est. Patient 16:52:51 CDT Vanessa Hickey MD [facility]-00552 Level 3 Est. Patient 17:40:16 CDT Mima Erazo [facility]-11236 Level 3 Est. Patient 14:34:52 CDT Vanessa Hickey MD [facility]-29860 Level 3 Est. Patient 16:27:51 CDT Mima Erazo [facility] [place]-38885 Level 3 Est. 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 Patient 18:43:34 CDT Mima Erazo [facility] CPT-46726 Level 3 Est. Patient 16:22:09 CDT Cherelle Avila [facility] CPT-89634 Level 4 Est. Patient 17:55:14 CDT Mima Erazo [facility] CPT-44628 Level 2 Est. Patient 17:13:21 CDT Alina Castaneda MD [facility]-97519 Level 3 Est. Patient 14:46:15 CDT Vanessa Hickey MD [facility]-86836 Level 3 Est. Patient 09:34:56 CDT Alina Castaneda MD [facility]-63047 Level 3 Est. Patient 21:40:19 CDT Mima Jeffliudmila [facility] CPT-93839 Level 3 Est. Patient 09:26:40 CDT Marvel Charles [facility]-27224 Level 3 Est. Patient 12:36:43 CDT Vanessa Hickey MD [facility]-69838 Level 3 Est. Patient 12:57:49 CDT Vanessa Hickey MD [facility]-66686 Level 3 Est. Patient 00:28:25 CDT Alina Castaneda MD [facility]26587 Level 2 Est. Patient 12:52:14 CDT Alina Castaneda MD [facility]89309 Level 3 Est. Patient 11:51:18 DIRECTOR OF HOTEL Alina Castaneda MD [facility]-24877 Level 3 Est. Patient 10:09:22 DIRECTOR OF HOTEL Alina Castaneda MD [facility]11345 Level 3 Est. Patient 14:36:26 DIRECTOR OF HOTEL Marvel Charles [facility]-58399 Level 3 Est. Patient 13:34:47 DIRECTOR OF HOTEL Alina Castaneda MD [facility]95658 Level 3 Est. Patient 19:52:08 DIRECTOR OF HOTEL Alina Castaneda MD [facility]-24601 Level 3 Est. Patient 10:01:51 DIRECTOR OF HOTEL Marvel Charles [facility]-27693 Level 3 Est. Patient 21:54:06 CDT Vanessa Hickey MD [facility]-23100 Level 3 Est. Patient 08:54:46 CDT Alina Castaneda MD [facility]00688 Level 3 Est. Patient 09:32:11 CDT Marvel Charles [facility]-48960 Level 3 Est. Patient 12:02:49 CDT Alina Castaneda MD [facility]86990 Level 3 Est. Patient 19:17:33 CDT Alina Castaneda MD [facility]43774 Level 3 Est. Patient 13:19:10 CDT Marvel Charles [facility]-90310 Level 3 Est. Patient 08:20:05 CDT Alina Castaneda MD [facility]-21463 Level 3 Est. Patient 15:17:18 CDT Alina Castaneda MD [facility]76301 Level 3 Est. Patient 14:25:36 DIRECTOR OF HOTEL Marvel Charles [facility]-90668 Level 3 Est. Patient 10:09:15 DIRECTOR OF HOTEL Marvel Charles [facility]-40121 Level 3 Est. Patient 21:28:43 CDT Alina Castaneda MD [facility]56353 Level 3 Est. Patient 15:20:11 CDT Marvel Charles [facility]-46487 Level 4 Est. Patient 19:08:12 CDT Alina Castaneda MD [facility]-36402 Level 3 Est. Patient 15:06:39 CDT Marvel Charles [facility]-65862 Level 4 Est. Patient 17:48:15 CDT Alina Castaneda MD [facility]-53548 Level 3 Est. Patient 14:53:49 CDT Alina Castaneda MD [facility]-78627 Level 3 Est. Patient 09:35:16 CDT Alina Castaneda MD [facility]-67889 Level 3 Est. Patient 12:23:22 CDT Alina Castaneda MD [facility]17819 Level 3 Est. Patient 16:19:15 CDT Alina Castaneda MD [facility]-52168 Level 3 Est. Patient 21:39:56 DIRECTOR OF HOTEL Alina Castaneda MD [facility]-07922 Level 4 Est. Patient 14:12:56 DIRECTOR OF HOTEL Alina Castaneda MD [facility]-23357 Level 2 Est. Patient 15:34:57 DIRECTOR OF HOTEL Alina Castaneda MD [facility]13237 Level 3 Est. Patient 12:17:04 DIRECTOR OF HOTEL Alina Castaneda MD [facility]71516 Level 3 Est. Patient 09:18:18 DIRECTOR OF HOTEL Marvel Charles [facility]-02994 Level 2 Est. Patient 21:50:24 CDT Alina Castaneda MD [facility]35168 Level 3 Est. Patient 09:17:28 CDT Marvel Charles [facility]-79336 Level 4 Est. Patient 18:54:02 CDT Alina Castaneda MD [facility]-63185 Level 3 Est. Patient 10:47:10 CDT Alina Castaneda MD [facility]-53785 Level 3 Est. Patient 09:22:20 CDT Marvel Charles [facility]-20853 Level 3 Est. Patient 16:39:43 CDT Marvel Charles [facility]-89069 Level 3 Est. Patient 16:05:16 CDT Alina Castaneda MD [facility]-34879 Level 3 Est. Patient 00:29:15 CDT Alina Castaneda MD [facility]16861 Level 3 Est. Patient 10:49:22 DIRECTOR OF HOTEL Marvel Charles [facility]-26237 Level 3 Est. Patient 21:30:19 DIRECTOR OF HOTEL Alina Castaneda MD PhD [facility] CPT-97757 Level 4 Est. Patient 17:04:11 DIRECTOR OF HOTEL Brooksnivia Charles [facility] CPT-21219 Level 3 Est. Patient 15:34:11 [facility] CPT-53772 Level 2 Est. Patient 12:51:58 DIRECTOR OF HOTEL Alina Castaneda MD PhD [facility] CPT-00622 Level 3 Est. Patient 13:20:01 DIRECTOR OF HOTEL Alina Castaneda MD PhD [facility] CPT-39430 Level 3 Est. Patient 09:23:35 CDT Alina Castaneda MD PhD [facility] Procedures Code Procedure Name Date Entry Date Standard Description CPT-TCMM Transitional Care Mgmt-Moderate 12:32:19 CDT CPT-29222 Level 2 Half-Way 09:01:11 CDT CPT-36048 HGBA1C - LAB USE ONLY 09:30:27 DIRECTOR OF HOTEL CPT-56504 BMP - LAB USE ONLY 09:30:27 DIRECTOR OF HOTEL CPT-71983 Venipuncture Draw Fee 09:30:26 DIRECTOR OF HOTEL CPT-TCMM Transitional Care Mgmt-Moderate 10:25:31 CDT CPT-32459 Bladder Scan 14:34:53 CDT CPT-40927 Bladder Scan 14:39:01 DIRECTOR OF HOTEL CPT-TCMM Transitional Care Mgmt-Moderate 10:30:19 DIRECTOR OF HOTEL CPT-08389 Bladder Scan 12:36:44 CDT CPT-00995 Bladder Scan 21:54:06 CDT CPT-G0008 Administration of Influenza Virus Vaccine 13:05:26 CDT CPT-78681 Fluzone Quadrivalent Intramuscular Suspension 0.5 ML 13: 05:26 CDT CPT-42454 Administration single or combination vaccine inc oral 11 :49:51 CDT CPT-14445 Pneumovax 11:49:51 CDT CPT-63597 Ribs unilateral 2V 12:37:22 DIRECTOR OF HOTEL CPT-14170 Chest 2V Frontal and Lat 17:15:26 CDT CPT-72584 Abx/Therapy Injection 18:54:02 CDT CPT-J0696 Rocephin 1000 mg (Ceftriaxone) 16:00:32 CDT CPT-23280 Chest 2V Frontal and Lat 15:26:45 CDT CPT-27915 Chest 2V Frontal and Lat 10:23:27 CDT CPT-90888 Venipuncture Draw Fee 10:11:00 CDT CPT-49982 Administration single or combination vaccine inc oral 11 :56:38 CDT CPT-95677 Influenza split virus > age 3 11:56:38 CDT CPT-55595 Venipuncture Draw Fee 08:49:54 DIRECTOR OF HOTEL CPT-68405 EKG Trac and Interp 17:54:19 DIRECTOR OF HOTEL
--- OUTSIDE RECORDS SUMMARY | 2018-07-02 12:54 | XMS REPORT | Clinical Summary ---
Author Author Admin, TERELL Organization [facility] [employer] Address Unknown Phone Unavailable Allergies, Adverse Reactions, [...] mellitus, type II 250.00 Active Marvel Thurstonari PERSONAL TRAINER Diabetes mellitus without mention of complication, type [...] PROSTATE ICD-V76.44 Inactive Alina Castaneda MD PhD SINUSITIS, ACUTE ICD-461.9 Inactive Alina Castaneda MD PhD Confusion ICD-298.9 Inactive Alina Castaneda MD PhD Open wound of tongue and floor of mouth, uncomplicated ICD-873.64 Inactive Alina Castaneda MD PhD Chest pain, atypical ICD-786.59 Inactive Alina Castaneda MD PhD Chest pain, atypical ICD-786.59 Inactive Alina Castaneda MD PhD Hypoglycemia ICD-251.2 Inactive Alina Castaneda MD PhD Malaise and fatigue ICD-780.79 Inactive Mason Loredo MD Diarrhea ICD-787.91 Inactive Mason Loredo MD PHARYNGITIS ICD-462 Inactive Mason Loredo MD Dizziness ICD-780.4 Inactive Alina Castaneda MD PhD Medication List Medication Instructions Start Date Stop Date Generic Name NDC Status Provider Patient Instruction FENOFIBRATE 160 MG ORAL TABLET Take 1 tablet by mouth daily FENOFIBRATE 87439638664 Active Mya Ledezma MA Active SEROQUEL 50 MG ORAL TABLET Take Give 1 tablet by mouth at bedtime QUETIAPINE FUMARATE 51108750254 Active Mason Loredo MD Active OCEAN NASAL SPRAY SOLUTION 2 sprays in both nostrils every 8 hours as needed for dry mucous membranes SALINE SOLN 90129953957 Active Mason Loredo MD Active BETHANECHOL CHLORIDE 25 MG ORAL TABLET Take 1 tablet mouth four times a day BETHANECHOL CHLORIDE 19108134396 Active Mason Loredo MD Active [facility] LUBRICANT E[facility] DROPS 0.4-0.3 % OPHTHALMIC SOLUTION POLYETHYL GLYCOL-PROPYL GLYCOL 94296099885 No Longer Active Mason Loredo MD Active TYLENOL 8 HOUR 650 MG ORAL TABLET EXTENDED RELEASE 1 tab QID prn ACETAMINOPHEN 12614623483 No Longer Active Mason Loredo MD Active TOPAMAX 25 MG ORAL TABLET 1 tab BID PRN TOPIRAMATE 21235474826 Active Mason Loredo MD Active TIMOPTIC OCUDOSE 0.5 % OPHTHALMIC SOLUTION instill one drop into both eyes q12H TIMOLOL MALEATE 46164105163 Active Mason Loredo MD Active TRAZODONE HCL 100 MG ORAL TABLET 1 every night to prevent headaches TRAZODONE HCL 18213324799 No Longer Active Mason Loredo MD Active TRAVATAN Z 0.004 % OPHTHALMIC SOLUTION 1 drop each eye daily 2017 TRAVOPROST 89482722410 No Longer Active Mason Loredo MD Active LATUDA 60 MG ORAL TABLET 1 tab daily LURASIDONE HCL 39550406357 No Longer Active Mason Loredo MD Active MORPHINE SULFATE ER 30 MG ORAL TABLET EXTENDED RELEASE Take one capsule BID MORPHINE SULFATE 47711762042 No Longer Active Mason Loredo MD Active TRUE METRIX BLOOD GLUCOSE TEST IN VITRO STRIP Check blood sugars 3x/day. 2015 GLUCOSE BLOOD 73154796301 No Longer Active Mason Loredo MD Active TRUEPLUS LANCETS 30G 3x a day LANCETS 85881735665 No Longer Active Mason Loredo MD Active MYLANTA GAS RELIEF MAXIMUM STR 125 MG ORAL CAPSULE 30cc every 4 hours prn SIMETHICONE 17081938234 No Longer Active Mason Loredo MD Active IMODIUM A-D 2 MG ORAL TABLET 1 tab QID as needed LOPERAMIDE HCL 62740957660 No Longer Active Mason Loredo MD Active FLONASE ALLERGY RELIEF 50 MCG/ACT NASAL SUSPENSION One spray each nostril BID x 1 week then daily FLUTICASONE PROPIONATE 18293071288 No Longer Active Mason Loredo MD Active FLUVOXAMINE MALEATE 100 MG ORAL TABLET take one tab every AM et HS, and take 1 /2 tab at noon FLUVOXAMINE MALEATE 88834549641 No Longer Active Mason Loredo MD Active BD PEN NEEDLE MINI U/F 31G X 5 MM 4 a day INSULIN PEN NEEDLE 31610830789 No Longer Active Mason Loredo MD Active AMITIZA 24 MCG ORAL CAPSULE Take one capsule BID for constipation LUBIPROSTONE 17021613145 No Longer Active Mason Loredo MD Active TRUEPLUS LANCETS 30G 3 a day LANCETS 52371194104 No Longer Active Mason Loredo MD Active CORICIDIN HBP CONGESTION/COUGH 10-200 MG ORAL CAPSULE Take as directed on box as needed for cold/flu symptoms DEXTROMETHORPHAN- GUAIFENESIN 74749875215 No Longer Active Mason Loredo MD Active OMEGA-3 300 MG ORAL CAPSULE 4 caps by mouth daily OMEGA-3 FATTY ACIDS 39379749239 No Longer Active Mason Loredo MD Active HUMALOG KWIKPEN 100 UNIT/ML SUBCUTANEOUS SOLUTION PEN-INJECTOR sliding scale if needed INSULIN LISPRO (HUMAN) 24057873269 No Longer Active Mason Loredo MD Active TRUETEST TEST IN VITRO STRIP check blood sugars 3x/day GLUCOSE BLOOD 96593527764 No Longer Active Mason Loredo MD Active ALFUZOSIN HCL ER 10 MG ORAL TABLET EXTENDED RELEASE 24 HOUR 1 tablet daily ALFUZOSIN HCL 61781631542 No Longer Active Mason Loredo MD Active BD INSULIN SYRINGE 28G X 1/2" 1 ML 1 four times per day INSULIN SYRINGE-NEEDLE U-100 56433570524 No Longer Active Mason Loredo MD Active LEVEMIR FLEXTOUCH 100 UNIT/ML SUBCUTANEOUS SOLUTION PEN-INJECTOR 60 units SQ each evening, for diabetes INSULIN DETEMIR 39191006192 No Longer Active Mason Loredo MD Active METFORMIN HCL ER (MOD) 500 MG ORAL TABLET EXTENDED RELEASE 24 HOUR give two tabs PO BID METFORMIN HCL 87500370964 Active Mason Loredo MD Active LACTULOSE 20 GM/30ML ORAL SOLUTION give 30 Ml PO BID PRN LACTULOSE 41083664397 Active Mason Loredo MD Active COLACE 100 MG ORAL CAPSULE 1 tab BID PRN DOCUSATE SODIUM 09224610270 Active Mason Loredo MD Active TAMSULOSIN HCL 0.4 MG ORAL CAPSULE give 2 capsules PO each evening TAMSULOSIN HCL 86533850621 Active Mason Loredo MD Active [facility] MELATONIN 3 MG ORAL TABLET give 1 tab by mouth at HS MELATONIN 92093197101 Active Mason Loredo MD Active LATANOPROST 0.005 % OPHTHALMIC SOLUTION instill 1 drop in both eyes at bed time LATANOPROST 61412866769 Active Mason Loredo MD Active AMARYL 2 MG ORAL TABLET give 2.5 tabs PO daily GLIMEPIRIDE 20780256312 Active Mason Loredo MD Active MIRALAX ORAL POWDER 17g by mouth q12h, for constipation POLYETHYLENE GLYCOL 3350 01161597854 Active Mason Loredo MD Active IBUPROFEN 400 MG ORAL TABLET 1 tab Q6H PRN IBUPROFEN 27329286423 Active Mason Loredo MD Active EFFEXOR XR 37.5 MG ORAL CAPSULE EXTENDED RELEASE 24 HOUR Take one by mouth daily VENLAFAXINE HCL 03203261505 Active Mima Erazo APRN Active FLUVOXAMINE MALEATE 50 MG ORAL TABLET 1 tab by mouth daily 04/01 FLUVOXAMINE MALEATE 51126392006 No Longer Active Mima Erazo APRN Active TRUE METRIX METER w/Device KIT Check blood sugars 3x/day BLOOD GLUCOSE MONITORING SUPPL 74763441322 Active Marvel Charles PERSONAL TRAINER Active VITAMIN D 2000 UNIT ORAL CAPSULE Take one by mouth daily CHOLECALCIFEROL 68353244404 Active Mima Erazo BUILD MASTER Active LATUDA 60 MG ORAL TABLET Take one by mouth daily LURASIDONE HCL 83430130949 No Longer Active Mima Erazo APRN Active CLONAZEPAM 1 MG ORAL TABLET 1 pill by mouth three times daily CLONAZEPAM 19187338642 Active Rhett Luther DO Active [facility] MILK OF MAGNESIA 400 MG/5ML ORAL SUSPENSION 30ml by mouth bid prn MAGNESIUM HYDROXIDE 06995496316 Active Mason Loredo MD Active TRAVATAN Z 0.004 % OPHTHALMIC SOLUTION 1 gtt each eye daily TRAVOPROST 57399119859 No Longer Active Mason Loredo MD Active LISINOPRIL 20 MG ORAL TABLET 1 BID LISINOPRIL 15843926331 No Longer Active Mason Loredo MD Active ZOLPIDEM TARTRATE 10 MG ORAL TABLET take at bedtime ZOLPIDEM TARTRATE 47984685223 No Longer Active Mason Loredo MD Active HYDROCODONE-ACETAMINOPHEN 5-325 MG ORAL TABLET 2 tabs by mouth three times daily for pain HYDROCODONE-ACETAMINOPHEN 23702939075 No Longer Active Mason Loredo MD Active ZOFRAN 4 MG ORAL TABLET 1 po q4hr PRN Nausea ONDANSETRON HCL 97457786034 No Longer Active Mason Loredo MD Active LOMOTIL 2.5-0.025 MG ORAL TABLET take 1-2 tabs PO after each stool, no more than 8 in 24 hours DIPHENOXYLATE-ATROPINE 80198296718 No Longer Active Mason Loredo MD Active COLACE 100 MG ORAL CAPSULE 1 pill by mouth twice daily, for constipation 2014 DOCUSATE SODIUM 41829090326 No Longer Active Mima Erazo APRN Active TOLTERODINE TARTRATE 2 MG ORAL TABLET 1 pill twice daily, for bladder TOLTERODINE TARTRATE 62782502177 No Longer Active Vanessa Hickey MD Active AMITIZA 24 MCG ORAL CAPSULE Take one capsule BID for constipation. LUBIPROSTONE 73619200123 No Longer Active Vanessa Hickey MD Active METOPROLOL SUCCINATE ER 100 MG ORAL TABLET EXTENDED RELEASE 24 HOUR 1 by mouth daily for blood pressure METOPROLOL SUCCINATE 79877234087 No Longer Active Grace Nascimento RMA Active METFORMIN HCL ER 500 MG ORAL TABLET EXTENDED RELEASE 24 HOUR Take three tablets by mouth everyday METFORMIN HCL 22553588975 No Longer Active Grace Azam RMA Active LOVAZA 1 GM ORAL CAPSULE 4 daily (for triglycerides) HASOO-0-TFTF ETHYL ESTERS 75738278342 No Longer Active Grace Azam RMA Active TRAZODONE HCL 100 MG ORAL TABLET 1 tab by mouth for sleep TRAZODONE HCL 06736720329 No Longer Active Grace Azam RMA Active NOVOFINE 32G X 6 MM use one four times per day INSULIN PEN NEEDLE 76902826171 No Longer Active Grace Azam RMA Active BACTROBAN 2 % EXTERNAL CREAM Apply to affected area BID for up to 10 days MUPIROCIN CALCIUM 77350272205 No Longer Active Grace Azam RMA Active KEFLEX 500 MG ORAL CAPSULE 1 po BID x 7 days CEPHALEXIN 67729483958 No Longer Active Cherelle Avila APRN Active FLUVOXAMINE MALEATE 100 MG ORAL TABLET Take one (1) tablet by mouth am, 1/2 at noon FLUVOXAMINE MALEATE 84332992633 No Longer Active Mima Erazo ALBAN Active FLUVOXAMINE MALEATE 100 MG ORAL TABLET Take 1/2 tab at noon 03/04 FLUVOXAMINE MALEATE 65689039706 No Longer Active Cherelle Avila ALBAN Active ACCU-CHEK ROSA DEVICE Use device to check blood sugars BLOOD GLUCOSE MONITORING SUPPL 30727582411 No Longer Active Maljohn Mackenzieglari LOPEZ Active ACCU-CHEK ROSA IN VITRO STRIP use strips with device to check blood sugars 3 times daily GLUCOSE BLOOD 14710469318 No Longer Active Maljohn Mackenzieglari PERSONAL TRAINER Active VERAPAMIL HCL ER 180 MG ORAL TABLET EXTENDED RELEASE 1 pill by mouth twice daily, for migraine prevention VERAPAMIL HCL 55606291623 Active Mima Erazo ALBAN Active CYCLOBENZAPRINE HCL 10 MG ORAL TABLET 1 tablet by mouth three times daily, scheduled CYCLOBENZAPRINE HCL 76146891685 No Longer Active Alina Castaneda MD PhD Active HUMALOG 100 UNIT/ML SUBCUTANEOUS SOLUTION Take 20 units with breakfast, 10u with lunch and suppetr. INSULIN LISPRO (HUMAN) 11745101172 No Longer Active Alina Castaneda MD PhD Active TRUETEST TEST IN VITRO STRIP check sugars 4x/day GLUCOSE BLOOD 93053745142 No Longer Active Alina Castaneda MD PhD Active MORPHINE SULFATE 30 MG ORAL TABLET 1 pill by mouth twice daily, for pain 2013 MORPHINE SULFATE 24255794016 No Longer Active Mason Loredo MD Active ACYCLOVIR 400 MG ORAL TABLET 1 pill three times daily x 5 days, for cold sore outbreak ACYCLOVIR 24742363916 No Longer Active Alina Castaneda MD PhD Active PENICILLIN V POTASSIUM 500 MG ORAL TABLET 1 pill by mouth three times daily PENICILLIN V POTASSIUM 29270124004 No Longer Active Alina Castaneda MD PhD Active UROXATRAL 10 MG ORAL TABLET EXTENDED RELEASE 24 HOUR Take 1 tablet by mouth daily ALFUZOSIN HCL 56753246599 No Longer Active Alina Castaneda MD PhD Active THIOTHIXENE 5 MG ORAL CAPSULE by mouth twice a day THIOTHIXENE 11763617864 No Longer Active Alina Castaneda MD PhD Active ZYPREXA 7.5 MG ORAL TABLET 1 at HS OLANZAPINE 34632114234 No Longer Active Alina Castaneda MD PhD Active DETROL LA 4 MG ORAL CAPSULE EXTENDED RELEASE 24 HOUR Take 1 tablet by mouth daily TOLTERODINE TARTRATE 02494154228 No Longer Active Alina Castaneda MD PhD Active TERESE CONTOUR TEST IN VITRO STRIP monitor blood sugars 3x/day GLUCOSE BLOOD 24994871253 No Longer Active Alina Castaneda MD PhD Active EQL TRUETEST TEST IN VITRO STRIP Test blood sugar TID GLUCOSE BLOOD 28406760734 No Longer Active Alina Castaneda MD PhD Active FLUTICASONE PROPIONATE 50 MCG/ACT NASAL SUSPENSION 2 sprays each nostril qDay x 30 days FLUTICASONE PROPIONATE 56435249035 No Longer Active Alina Castaneda MD PhD Active IBUPROFEN 200 MG ORAL TABLET 1 Q 6 hr. PRN IBUPROFEN 45838775394 No Longer Active Alina Csataneda MD PhD Active NIACIN ER 500 MG ORAL TABLET EXTENDED RELEASE 4 qHS (for triglycerides) 01/13 NIACIN 78098208938 No Longer Active Alina Castaneda MD PhD Active SAPHRIS 5 MG SUBLINGUAL TABLET SUBLINGUAL by mouth twice a day ASENAPINE MALEATE 71656415559 No Longer Active Maljohn Mackenzieglestela MARROQUIN Active ACETAMINOPHEN 500 MG ORAL TABLET 2 Q 6 hr. PRN ACETAMINOPHEN 89173297055 No Longer Active Maljohn Ziglari PERSONAL TRAINER Active ORPHENADRINE CITRATE ER 100 MG ORAL TABLET EXTENDED RELEASE 12 HOUR 1 every 12 hr. as needed ORPHENADRINE CITRATE 35400280037 No Longer Active Alina Castaneda MD PhD Active NIACIN ER 500 MG ORAL TABLET EXTENDED RELEASE 2 qHS NIACIN 74253691240 No Longer Active Alina Castaneda MD PhD Active AMOXICILLIN 500 MG ORAL CAPSULE 2 po BID x 10 days AMOXICILLIN 78523454031 No Longer Active Alina Castaneda MD PhD Active HYDROCODONE-ACETAMINOPHEN 7.5-325 MG ORAL TABLET 1 four times a day as needed for pain HYDROCODONE-ACETAMINOPHEN 45355193691 No Longer Active Alina Castaneda MD PhD Active DOXEPIN HCL 10 MG ORAL CAPSULE Take 1 tablet by mouth daily DOXEPIN HCL 95226591186 No Longer Active Salina Ervinford [facility] Active NAVANE 10 MG CAPS 1/2 tablet twice a day THIOTHIXENE No Longer Active Salina Ervinford A Active CYCLOBENZAPRINE HCL 10 MG ORAL TABLET 1/2 tablet by mouth every 8 hours as needed for muscle spasms CYCLOBENZAPRINE HCL 25017736620 No Longer Active Alina Castaneda MD PhD Active BACTROBAN 2 % EXTERNAL CREAM apply to ear and nose twice daily MUPIROCIN CALCIUM 83125340664 No Longer Active Alina Castaneda MD PhD Active HYDROCODONE-ACETAMINOPHEN 5-325 MG ORAL TABLET take one tablet by mouth every four hours as needed for pain HYDROCODONE-ACETAMINOPHEN 31999612931 No Longer Active Alina Castaneda MD PhD Active ZYPREXA 5 MG ORAL TABLET take one tablet by mouth every evening OLANZAPINE 61168523343 No Longer Active Alina Castaneda MD PhD Active ALBUTEROL SULFATE (2.5 MG/3ML) 0.083% INHALATION NEBULIZATION SOLUTION one vial per nebulizer TID and PRN cough/soa ALBUTEROL SULFATE 01070372425 No Longer Active Alina Castaneda MD PhD Active GUAIFENESIN ER 600 MG ORAL TABLET EXTENDED RELEASE 12 HOUR 1 tablet by mouth twice daily if needed for cough GUAIFENESIN 22847248917 No Longer Active Marvel MARROQUIN Active AZITHROMYCIN 500 MG INTRAVENOUS SOLUTION RECONSTITUTED 1 po q day AZITHROMYCIN 07729902738 No Longer Active Alina Castaneda MD PhD Active PROMETHAZINE-CODEINE 6.25-10 MG/5ML ORAL SYRUP 1 tsp po q 6 hours prn cough PROMETHAZINE-CODEINE 98586599951 No Longer Active Alina Castaneda MD PhD Active CEFDINIR 300 MG ORAL CAPSULE by mouth twice a day CEFDINIR 52028421800 No Longer Active Alina Castaneda MD PhD Active METFORMIN HCL ER 500 MG ORAL TABLET EXTENDED RELEASE 24 HOUR Take 3 tablets by mouth everyday METFORMIN HCL 30484798435 No Longer Active Alina Castaneda MD PhD Active LEVEMIR 100 UNIT/ML SUBCUTANEOUS SOLUTION 90 units SQ qHS INSULIN DETEMIR 67573123992 No Longer Active Marvel MARROQUIN Active TOPROL XL 100 MG ORAL TABLET EXTENDED RELEASE 24 HOUR 1 @ HS METOPROLOL SUCCINATE 62710739975 No Longer Active Marvel MARROQUIN Active ALLOPURINOL 300 MG ORAL TABLET Take one by mouth daily ALLOPURINOL 61752611084 Active Mima Erazo APRN Active ZYPREXA 10 MG ORAL TABLET Take one by mouth daily OLANZAPINE 08110516951 No Longer Active Alina Castaneda MD PhD Active NOVOLOG 100 UNIT/ML SUBCUTANEOUS SOLUTION 40 units with every meal INSULIN ASPART 35508537965 No Longer Active Alina Castaneda MD PhD Active VERAPAMIL HCL ER 120 MG ORAL TABLET EXTENDED RELEASE 1 qPM 09/08 VERAPAMIL HCL 43203614632 No Longer Active Salina ROJAS Active ZYPREXA 15 MG ORAL TABLET Take 1 tablet by mouth daily OLANZAPINE 57742036831 No Longer Active Marvel MARROQUIN Active ALBUTEROL SULFATE (2.5 MG/3ML) 0.083% INHALATION NEBULIZATION SOLUTION 1 neb tid and prn cough ALBUTEROL SULFATE 61796465793 No Longer Active Alina Castaneda MD PhD Active LANTUS 100 UNIT/ML SUBCUTANEOUS SOLUTION 60 units sq q hs INSULIN GLARGINE 51218678372 No Longer Active CRYSTAL Suarez Active ALBUTEROL SULFATE (2.5 MG/3ML) 0.083% INHALATION NEBULIZATION SOLUTION 1 neb tid and prn cough ALBUTEROL SULFATE (2.5 MG/3ML) 0.083% INHALATION NEBULIZATION SOLUTION 772616 ALBUTEROL SULFATE Inactive ZYPREXA 15 MG ORAL TABLET Take 1 tablet by mouth daily ZYPREXA 15 MG ORAL TABLET 156836 OLANZAPINE Inactive VERAPAMIL HCL ER 120 MG ORAL TABLET EXTENDED RELEASE 1 qPM 09/08 VERAPAMIL HCL ER 120 MG ORAL TABLET EXTENDED RELEASE VERAPAMIL HCL Inactive ZYPREXA 10 MG ORAL TABLET Take one by mouth daily ZYPREXA 10 MG ORAL TABLET 674279 OLANZAPINE Inactive TOPROL XL 100 MG ORAL TABLET EXTENDED RELEASE 24 HOUR 1 @ HS TOPROL XL 100 MG ORAL TABLET EXTENDED RELEASE 24 HOUR METOPROLOL SUCCINATE Inactive LEVEMIR 100 UNIT/ML SUBCUTANEOUS SOLUTION 90 units SQ qHS LEVEMIR 100 UNIT/ML SUBCUTANEOUS SOLUTION INSULIN DETEMIR Inactive PROMETHAZINE-CODEINE 6.25-10 MG/5ML ORAL SYRUP 1 tsp po q 6 hours prn cough PROMETHAZINE-CODEINE 6.25-10 MG/5ML ORAL SYRUP 054772 PROMETHAZINE-CODEINE Inactive GUAIFENESIN ER 600 MG ORAL TABLET EXTENDED RELEASE 12 HOUR 1 tablet by mouth twice daily if needed for cough GUAIFENESIN ER 600 MG ORAL TABLET EXTENDED RELEASE 12 HOUR GUAIFENESIN Inactive ALBUTEROL SULFATE (2.5 MG/3ML) 0.083% INHALATION NEBULIZATION SOLUTION one vial per nebulizer TID and PRN cough/soa ALBUTEROL SULFATE (2.5 MG/3ML) 0.083% INHALATION NEBULIZATION SOLUTION 209379 ALBUTEROL SULFATE Inactive ZYPREXA 5 MG ORAL TABLET take one tablet by mouth every evening ZYPREXA 5 MG ORAL TABLET 137431 OLANZAPINE Inactive HYDROCODONE-ACETAMINOPHEN 5-325 MG ORAL TABLET take one tablet by mouth every four hours as needed for pain HYDROCODONE-ACETAMINOPHEN 5-325 MG ORAL TABLET 156357 HYDROCODONE-ACETAMINOPHEN Inactive BACTROBAN 2 % EXTERNAL CREAM apply to ear and nose twice daily BACTROBAN 2 % EXTERNAL CREAM 787248 MUPIROCIN CALCIUM Inactive CYCLOBENZAPRINE HCL 10 MG ORAL TABLET 1/2 tablet by mouth every 8 hours as needed for muscle spasms CYCLOBENZAPRINE HCL 10 MG ORAL TABLET 086846 CYCLOBENZAPRINE HCL Inactive NAVANE 10 MG CAPS 1/2 tablet twice a day NAVANE 10 MG CAPS THIOTHIXENE Inactive DOXEPIN HCL 10 MG ORAL CAPSULE Take 1 tablet by mouth daily DOXEPIN HCL 10 MG ORAL CAPSULE 8637193 DOXEPIN HCL Inactive HYDROCODONE-ACETAMINOPHEN 7.5-325 MG ORAL TABLET 1 four times a day as needed for pain HYDROCODONE-ACETAMINOPHEN 7.5-325 MG ORAL TABLET 581201 HYDROCODONE-ACETAMINOPHEN Inactive NIACIN ER 500 MG ORAL [...] hr. PRN ACETAMINOPHEN 500 MG ORAL TABLET 131586 ACETAMINOPHEN Inactive SAPHRIS 5 MG SUBLINGUAL TABLET SUBLINGUAL by mouth twice a day SAPHRIS 5 MG SUBLINGUAL TABLET SUBLINGUAL ASENAPINE MALEATE Inactive NIACIN ER 500 MG ORAL TABLET EXTENDED RELEASE 4 qHS (for triglycerides) 01/13 NIACIN ER 500 MG ORAL TABLET EXTENDED RELEASE NIACIN Inactive IBUPROFEN 200 MG ORAL TABLET 1 Q 6 hr. PRN IBUPROFEN 200 MG ORAL TABLET 188605 IBUPROFEN Inactive FLUTICASONE PROPIONATE 50 MCG/ACT NASAL SUSPENSION 2 sprays each nostril qDay x 30 days FLUTICASONE PROPIONATE 50 MCG/ACT NASAL SUSPENSION 4677975 FLUTICASONE PROPIONATE Inactive EQL TRUETEST TEST IN [...] at HS ZYPREXA 7.5 MG ORAL TABLET 508055 OLANZAPINE Inactive THIOTHIXENE 5 MG ORAL CAPSULE by mouth twice a day THIOTHIXENE 5 MG ORAL CAPSULE 148348 THIOTHIXENE Inactive UROXATRAL 10 MG ORAL TABLET EXTENDED RELEASE 24 HOUR Take 1 tablet by mouth daily UROXATRAL 10 MG ORAL TABLET EXTENDED RELEASE 24 HOUR ALFUZOSIN HCL Inactive ACYCLOVIR 400 MG ORAL TABLET 1 pill three times daily x 5 days, for cold sore outbreak ACYCLOVIR 400 MG ORAL TABLET 172870 ACYCLOVIR Inactive TRUETEST TEST IN VITRO STRIP check sugars 4x/day TRUETEST TEST IN VITRO STRIP GLUCOSE BLOOD Inactive HUMALOG 100 UNIT/ML SUBCUTANEOUS SOLUTION Take 20 units with breakfast, 10u with lunch and suppetr. HUMALOG 100 UNIT/ML SUBCUTANEOUS SOLUTION INSULIN LISPRO (HUMAN) Inactive CYCLOBENZAPRINE HCL 10 MG ORAL TABLET 1 tablet by mouth three times daily, scheduled CYCLOBENZAPRINE HCL 10 MG ORAL TABLET 684181 CYCLOBENZAPRINE HCL Inactive ACCU-CHEK ROSA IN VITRO STRIP use strips with device to check blood sugars 3 times daily ACCU-CHEK ROSA IN VITRO STRIP GLUCOSE BLOOD Inactive ACCU-CHEK ROSA DEVICE Use device to check blood sugars ACCU-CHEK ROSA DEVICE BLOOD GLUCOSE MONITORING SUPPL Inactive FLUVOXAMINE MALEATE 100 MG ORAL TABLET Take 1/2 tab at noon 03/04 FLUVOXAMINE MALEATE 100 MG ORAL TABLET 429545 FLUVOXAMINE MALEATE Inactive FLUVOXAMINE MALEATE 100 MG ORAL TABLET Take one (1) tablet by mouth am, 1/2 at noon FLUVOXAMINE MALEATE 100 MG ORAL TABLET 841918 FLUVOXAMINE MALEATE Inactive BACTROBAN 2 % EXTERNAL CREAM Apply to affected area BID for up to 10 days BACTROBAN 2 % EXTERNAL CREAM 721942 MUPIROCIN CALCIUM Inactive NOVOFINE 32G X 6 MM use one four times per day NOVOFINE 32G X 6 MM INSULIN PEN NEEDLE Inactive TRAZODONE HCL 100 MG ORAL TABLET 1 tab by mouth for sleep TRAZODONE HCL 100 MG ORAL TABLET 045499 TRAZODONE HCL Inactive LOVAZA 1 GM ORAL CAPSULE 4 daily (for triglycerides) LOVAZA 1 GM ORAL CAPSULE 584064 [id number] ETHYL ESTERS Inactive METFORMIN HCL ER 500 [...] bladder TOLTERODINE TARTRATE 2 MG ORAL TABLET 050137 TOLTERODINE TARTRATE Inactive COLACE 100 MG ORAL CAPSULE 1 pill by mouth twice daily, for constipation 2014 COLACE 100 MG ORAL CAPSULE 8953032 DOCUSATE SODIUM Inactive LOMOTIL 2.5-0.025 MG ORAL TABLET take 1-2 tabs PO after each stool, no more than 8 in 24 hours LOMOTIL 2.5-0.025 MG ORAL TABLET 3689391 DIPHENOXYLATE-ATROPINE Inactive ZOFRAN 4 MG ORAL TABLET 1 po q4hr PRN Nausea ZOFRAN 4 MG ORAL TABLET 681600 ONDANSETRON HCL Inactive HYDROCODONE-ACETAMINOPHEN 5-325 MG ORAL TABLET 2 tabs by mouth three times daily for pain HYDROCODONE-ACETAMINOPHEN 5-325 MG ORAL TABLET 432529 HYDROCODONE-ACETAMINOPHEN Inactive ZOLPIDEM TARTRATE 10 MG ORAL TABLET take at bedtime ZOLPIDEM TARTRATE 10 MG ORAL TABLET 707208 ZOLPIDEM TARTRATE Inactive LISINOPRIL 20 MG ORAL TABLET 1 BID LISINOPRIL 20 MG ORAL TABLET 540612 LISINOPRIL Inactive TRAVATAN Z 0.004 % OPHTHALMIC SOLUTION 1 gtt each eye daily TRAVATAN Z 0.004 % OPHTHALMIC SOLUTION TRAVOPROST Inactive LATUDA 60 MG ORAL TABLET Take one by mouth daily LATUDA 60 MG ORAL TABLET LURASIDONE HCL Inactive FLUVOXAMINE MALEATE 50 MG ORAL TABLET 1 tab by mouth daily 04/01 FLUVOXAMINE MALEATE 50 MG ORAL TABLET 086750 FLUVOXAMINE MALEATE Inactive LEVEMIR FLEXTOUCH 100 UNIT/ML [...] 30G 3 a day TRUEPLUS LANCETS 30G 04609195409 LANCETS Inactive AMITIZA 24 MCG ORAL CAPSULE [...] noon FLUVOXAMINE MALEATE 100 MG ORAL TABLET 276280 FLUVOXAMINE MALEATE Inactive FLONASE ALLERGY RELIEF 50 MCG/ACT NASAL SUSPENSION One spray each nostril BID x 1 week then daily FLONASE ALLERGY RELIEF 50 MCG/ACT NASAL SUSPENSION 6685016 FLUTICASONE PROPIONATE Inactive IMODIUM A-D 2 MG ORAL TABLET 1 tab QID as needed IMODIUM A-D 2 MG ORAL TABLET 820212 LOPERAMIDE HCL Inactive MYLANTA GAS RELIEF MAXIMUM STR 125 MG ORAL CAPSULE 30cc every 4 hours prn MYLANTA GAS RELIEF MAXIMUM STR 125 MG ORAL CAPSULE SIMETHICONE Inactive TRUEPLUS LANCETS 30G 3x a day TRUEPLUS LANCETS 30G [id number] LANCETS Inactive TRUE METRIX BLOOD GLUCOSE TEST [...] headaches TRAZODONE HCL 100 MG ORAL TABLET 226662 TRAZODONE HCL Inactive TYLENOL 8 HOUR 650 MG ORAL TABLET EXTENDED RELEASE 1 tab QID prn TYLENOL 8 HOUR 650 MG ORAL TABLET EXTENDED RELEASE ACETAMINOPHEN Inactive [facility] LUBRICANT EYE DROPS 0.4-0.3 % OPHTHALMIC SOLUTION [facility] LUBRICANT EYE DROPS 0.4-0.3 % OPHTHALMIC SOLUTION POLYETHYL GLYCOL- PROPYL GLYCOL Inactive CEFDINIR 300 MG ORAL CAPSULE by mouth twice a day CEFDINIR 300 MG ORAL CAPSULE 570170 CEFDINIR Inactive AZITHROMYCIN 500 MG INTRAVENOUS SOLUTION RECONSTITUTED 1 po q day AZITHROMYCIN 500 MG INTRAVENOUS SOLUTION RECONSTITUTED 48708543348 AZITHROMYCIN Inactive AMOXICILLIN 500 MG ORAL CAPSULE 2 po BID x 10 days AMOXICILLIN 500 MG ORAL CAPSULE 452946 AMOXICILLIN Inactive PENICILLIN V POTASSIUM 500 MG ORAL TABLET 1 pill by mouth three times daily PENICILLIN V POTASSIUM 500 MG ORAL TABLET 558468 PENICILLIN V POTASSIUM Inactive KEFLEX 500 MG ORAL CAPSULE 1 po BID x 7 days KEFLEX 500 MG ORAL CAPSULE 376040 CEPHALEXIN Inactive Immunizations Vaccine Administration Date Value [...] Fluvirin, Fluarix, Agriflu(>=18 yo)) Fluzone (>3 yrs.) [[id number]] Influenza, seasonal, injectable pneumococcal immunization administered Pneumovax [...] ... - Chemistry sodium, serum 135 mmol/L 172-012 4850/08/22 carbon dioxide, venous blood 28.4 mmol/L 21.0-32.0 [...] mg/g {creat} 0-29 cholesterol, serum 263 mg/dL 952-307 9013/08/22 triglyceride, serum, fasting 1312 mg/dL 30-200 HDL [...] ordered Encounters Code Encounter Date Provider Facility CPT-25543 Level 3 Est. Patient 09:12:14 [employer]PERVISOR Mima Yoliudmila [facility] CPT-69937 Level 3 Est. Patient 16:52:51 CDT Vanessa Hickey MD [facility]-05597 Level 3 Est. Patient 17:40:16 CDT iMma [facility] CPT-30958 Level 3 Est. Patient 14:34:52 CDT Vanessa Hickey MD [facility]-37641 Level 3 Est. Patient 16:27:51 CDT Mima Erazo [facility] CPT-38660 Level 3 Est. Patient 14:39:00 [employer] SUPERVISOR Vanessa Hickey MD [facility]-63047 Level 2 Est. Patient 18:43:34 CDT Mima [facility] CPT-15964 Level 3 Est. Patient 16:22:09 CDT Cherelle Avila [facility] CPT-22932 Level 4 Est. Patient 17:55:14 CDT Mima [facility] CPT-25785 Level 2 Est. Patient 17:13:21 CDT Alina Castaneda MD [facility] CPT-64260 Level 3 Est. Patient 14:46:15 CDT Vanessa Hickey MD [facility]-64835 Level 3 Est. Patient 09:34:56 CDT Alina Castaneda MD [facility]-03002 Level 3 Est. Patient 21:40:19 CDT Mima Jeffliudmila [facility] CPT-16550 Level 3 Est. Patient 09:26:40 CDT Marvel [facility] CPT-24037 Level 3 Est. Patient 12:36:43 CDT Vanessa Hickey MD [facility]-58986 Level 3 Est. Patient 12:57:49 CDT Vanessa Hickey MD [facility]-92918 Level 3 Est. Patient 00:28:25 CDT Alina Castaneda MD [facility]34593 Level 2 Est. Patient 12:52:14 CDT Alina Castaneda MD [facility]27226 Level 3 Est. Patient 11:51:18 [employer] SUPERVISOR Alina Castaneda MD [facility]-51970 Level 3 Est. Patient 10:09:22 [employer] SUPERVISOR Alina Castaneda MD [facility]84958 Level 3 Est. Patient 14:36:26 [employer] SUPERVISOR Marvel [facility]-77756 Level 3 Est. Patient 13:34:47 [employer] SUPERVISOR Alina Castaneda [facility]72984 Level 3 Est. Patient 19:52:08 [employer] SUPERVISOR Alina Castaneda MD [facility]-36940 Level 3 Est. Patient 10:01:51 [employer] SUPERVISOR [facility]-88667 Level 3 Est. Patient 21:54:06 CDT Vanessa Hickey MD [facility]-86195 Level 3 Est. Patient 08:54:46 CDT Alina Castaneda MD [facility]-66925 Level 3 Est. Patient 09:32:11 CDT [facility]-76406 Level 3 Est. Patient 12:02:49 CDT Alina [facility] Level 3 Est. Patient 19:17:33 CDT Alina Castan[facility]35 Level 3 Est. Patient 13:19:10 CDT [facility]-67455 Level 3 Est. Patient 08:20:05 CDT Alina Castaneda [facility]75407 Level 3 Est. Patient 15:17:18 CDT Alina Castan[facility]26175 Level 3 Est. Patient 14:25:36 [employer] SUPERVISOR [facility]-40564 Level 3 Est. Patient 10:09:15 [employer] SUPERVISOR [facility]-55154 Level 3 Est. Patient 21:28:43 CDT Alina [facility]68[facility] Level 3 Est. Patient 15:20:11 [facility]T [facility] Patient 19:08:12 CDT Alina Castaneda MD [facility]-46131 Level 3 Est. Patient 15:06:39 CDT [facility]-71716 Level 4 Est. Patient 17:48:15 CDT Alina Castaneda MD [facility]-16399 Level 3 Est. Patient 14:53:49 CDT Alina Castaneda MD [facility]-11226 Level 3 Est. Patient 09:35:16 CDT Alina Castaneda MD [facility]-09104 Level 3 Est. Patient 12:23:22 CDT Alina Castaneda [facility]75674 Level 3 Est. Patient 16:19:15 CDT Alina [facility]8590 Level 3 Est. Patient 21:39:56 [employer] SUPERVISOR Alina Castaneda MD [facility]-05830 Level 4 Est. Patient 14:12:56 [employer] SUPERVISOR Alina Castaneda MD [facility]-95641 Level 2 Est. Patient 15:34:57 [employer] SUPERVISOR Alina Castaneda MD [facility]28849 Level 3 Est. Patient 12:17:04 [employer] SUPERVISOR Alina [facility]aneda [facility]42483 Level 3 Est. Patient 09:18:18 [employer] SUPERVISOR [facility]-43347 Level 2 Est. Patient 21:50:24 CDT Alina Castaneda MD [facility]82154 Level 3 Est. Patient 09:17:28 CDT [facility]-67691 Level 4 Est. Patient 18:54:02 CDT Alina Castaneda MD [facility]-01869 Level 3 Est. Patient 10:47:10 CDT Alina Castaneda MD [facility]-94704 Level 3 Est. Patient 09:22:20 CDT [facility]-52456 Level 3 Est. Patient 16:39:43 CDT [facility]-52954 Level 3 Est. Patient 16:05:16 CDT Alina Castaneda MD [facility]-20046 Level 3 Est. Patient 00:29:15 CDT Alina Castaneda MD [facility]744[facility] Level 3 Est. Patient 10:49:22 [employer] SUPERVISOR [facility]-37952 Level 3 Est. Patient 21:30:19 [employer] SUPERVISOR Alina Castaneda MD PhD [facility] CPT-15971 Level 4 Est. Patient 17:04:11 [employer]ERRY [employer]OG SUPERVISOR [place] [facility] CPT-23622 Level 3 Est. Patient 15:34:11 [employer] SUPERVISOR [facility] CPT-47923 Level 2 Est. Patient 12:51:58 [employer] SUPERVISOR Alina Castaneda MD PhD [facility] CPT-15754 Level 3 Est. Patient 13:20:01 [employer] SUPERVISOR Alina Castaneda MD PhD [facility] CPT-77742 Level 3 Est. Patient 09:23:35 CDT Alina Castaneda MD PhD [facility] Procedures Code Procedure Name Date Entry Date Standard Description CPT-TCMM Transitional Care Mgmt-Moderate 12:32:19 CDT CPT-02281 Level 2 Snf 09:01:11 CDT CPT-17662 HGBA1C - LAB USE ONLY 09:30:27 [employer]PERVISOR CPT-83785 BMP - LAB USE ONLY 09:30:27 [employer] SUPERVISOR CPT-43745 Venipuncture Draw Fee 09:30:26 [employer] SUPERVISOR CPT-TCMM Transitional Care Mgmt-Moderate 10:25:31 CDT CPT-14976 Bladder Scan 14:34:53 CDT CPT-37350 Bladder Scan 14:39:01 [employer] SUPERVISOR CPT-TCMM Transitional Care Mgmt-Moderate 10:30:19 [employer] SUPERVISOR CPT-87953 Bladder Scan 12:36:44 CDT CPT-90300 Bladder Scan 21:54:06 CDT CPT-G0008 Administration of Influenza Virus Vaccine 13:05:26 CDT CPT-62835 Fluzone Quadrivalent Intramuscular Suspension 0.5 ML 13: 05:26 CDT CPT-90072 Administration single or combination vaccine inc oral 11 :49:51 CDT CPT-03216 Pneumovax 11:49:51 CDT CPT-01870 Ribs unilateral 2V 12:37:22 [employer]PER[employer] CPT-84235 Chest 2V Frontal and Lat 17:15:26 CDT CPT-71572 Abx/Therapy Injection 18:54:02 CDT CPT-J0696 Rocephin 1000 mg (Ceftriaxone) 16:00:32 CDT CPT-92705 Chest 2V Frontal and Lat 15:26:45 CDT CPT-35548 Chest 2V Frontal and Lat 10:23:27 CDT CPT-58683 Venipuncture Draw Fee 10:11:00 CDT CPT-55264 Administration single or combination vaccine inc oral 11 :56:38 CDT CPT-81561 Influenza split virus > age 3 11:56:38 CDT CPT-85857 Venipuncture Draw Fee 08:49:54 [employer] SUPERVISOR CPT-93054 EKG Trac and Interp 17:54:19 [employer] SUPERVISOR
--- OUTSIDE RECORDS SUMMARY | 2018-07-02 12:55 | XMS REPORT | Clinical Summary ---
Author Author Admin, TERELL Organization [facility] [employer] Address Unknown Phone Unavailable Allergies, Adverse Reactions, Alerts Allergy Name Reaction Description Start Date Severity Status Provider PROZAC Critical Active CRYSTAL Suarez ABILIFGreg Critical Active CRYSTAL Suarze Conditions or Problems Problem Name Problem Code [...] mellitus, type II 250.00 Active Marvel Thurstonari HARDNESS INSPECTOR Diabetes mellitus without mention of complication, type [...] Take 1 tablet by mouth daily FENOFIBRATE 87517015763 Active Mya Ledezma MA Active SEROQUEL 50 MG ORAL TABLET Take Give 1 tablet by mouth at bedtime QUETIAPINE FUMARATE 26635656157 Active Mason Loredo MD Active OCEAN NASAL SPRAY SOLUTION 2 sprays in both nostrils every 8 hours as needed for dry mucous membranes SALINE SOLN 07391571895 Active Mason Loredo MD Active BETHANECHOL CHLORIDE 25 MG ORAL TABLET Take 1 tablet mouth four times a day BETHANECHOL CHLORIDE 71033056074 Active Mason Loredo MD Active [facility] LUBRICANT EYE DROPS 0.4-0.3 % OPHTHALMIC SOLUTION POLYETHYL GLYCOL-PROPYL GLYCOL 17642827248 No Longer Active Mason Loredo MD Active TYLENOL 8 HOUR 650 MG ORAL TABLET EXTENDED RELEASE 1 tab QID prn ACETAMINOPHEN 25552492186 No Longer Active Mason Loredo MD Active TOPAMAX 25 MG ORAL TABLET 1 tab BID PRN TOPIRAMATE 21934769196 Active Mason Loredo MD Active TIMOPTIC OCUDOSE 0.5 % OPHTHALMIC SOLUTION instill one drop into both eyes q12H TIMOLOL MALEATE 95328395124 Active Mason Loredo MD Active TRAZODONE HCL 100 MG ORAL TABLET 1 every night to prevent headaches TRAZODONE HCL 67124310231 No Longer Active Mason Loredo MD Active TRAVATAN Z 0.004 % OPHTHALMIC SOLUTION 1 drop each eye daily 2017 TRAVOPROST 85510436634 No Longer Active Mason Loredo MD Active LATUDA 60 MG ORAL TABLET 1 tab daily LURASIDONE HCL 37068848101 No Longer Active Mason Loredo MD Active MORPHINE SULFATE ER 30 MG ORAL TABLET EXTENDED RELEASE Take one capsule BID MORPHINE SULFATE 77007717248 No Longer Active Mason Loredo MD Active TRUE METRIX BLOOD GLUCOSE TEST IN VITRO STRIP Check blood sugars 3x/day. 2015 GLUCOSE BLOOD 17057627977 No Longer Active Mason Loredo MD Active TRUEPLUS LANCETS 30G 3x a day LANCETS 60170830042 No Longer Active Mason Loredo MD Active MYLANTA GAS RELIEF MAXIMUM STR 125 MG ORAL CAPSULE 30cc every 4 hours prn SIMETHICONE 70054102785 No Longer Active Mason Loredo MD Active IMODIUM A-D 2 MG ORAL TABLET 1 tab QID as needed LOPERAMIDE HCL 45679189572 No Longer Active Mason Loredo MD Active FLONASE ALLERGY RELIEF 50 MCG/ACT NASAL SUSPENSION One spray each nostril BID x 1 week then daily FLUTICASONE PROPIONATE 71107560181 No Longer Active Mason Loredo MD Active FLUVOXAMINE MALEATE 100 MG ORAL TABLET take one tab every AM et HS, and take 1 /2 tab at noon FLUVOXAMINE MALEATE 72675125688 No Longer Active Mason Loredo MD Active BD PEN NEEDLE MINI U/F 31G X 5 MM 4 a day INSULIN PEN NEEDLE 62889049273 No Longer Active Mason Loredo MD Active AMITIZA 24 MCG ORAL CAPSULE Take one capsule BID for constipation LUBIPROSTONE 65500325127 No Longer Active Mason Loredo MD Active TRUEPLUS LANCETS 30G 3 a day LANCETS 03501072826 No Longer Active Mason Loredo MD Active CORICIDIN HBP CONGESTION/COUGH 10-200 MG ORAL CAPSULE Take as directed on box as needed for cold/flu symptoms DEXTROMETHORPHAN- GUAIFENESIN 86775073867 No Longer Active Mason Loreod MD Active OMEGA-3 300 MG ORAL CAPSULE 4 caps by mouth daily OMEGA-3 FATTY ACIDS 00324895609 No Longer Active Mason Loredo MD Active HUMALOG KWIKPEN 100 UNIT/ML SUBCUTANEOUS SOLUTION PEN-INJECTOR sliding scale if needed INSULIN LISPRO (HUMAN) 85374674356 No Longer Active Mason Loredo MD Active TRUETEST TEST IN VITRO STRIP check blood sugars 3x/day GLUCOSE BLOOD 98953425280 No Longer Active Mason Loredo MD Active ALFUZOSIN HCL ER 10 MG ORAL TABLET EXTENDED RELEASE 24 HOUR 1 tablet daily ALFUZOSIN HCL 80899523168 No Longer Active Mason Loredo MD Active BD INSULIN SYRINGE 28G X 1/2" 1 ML 1 four times per day INSULIN SYRINGE-NEEDLE U-100 26101452042 No Longer Active Mason Loredo MD Active LEVEMIR FLEXTOUCH 100 UNIT/ML SUBCUTANEOUS SOLUTION PEN-INJECTOR 60 units SQ each evening, for diabetes INSULIN DETEMIR 89622940818 No Longer Active Mason Loredo MD Active METFORMIN HCL ER (MOD) 500 MG ORAL TABLET EXTENDED RELEASE 24 HOUR give two tabs PO BID METFORMIN HCL 63909969245 Active Mason Loredo MD Active LACTULOSE 20 GM/30ML ORAL SOLUTION give 30 Ml PO BID PRN LACTULOSE 77259274081 Active Mason Loredo MD Active COLACE 100 MG ORAL CAPSULE 1 tab BID PRN DOCUSATE SODIUM 30258889032 Active Mason Loredo MD Active TAMSULOSIN HCL 0.4 MG ORAL CAPSULE give 2 capsules PO each evening TAMSULOSIN HCL 57605458066 Active Mason Loredo MD Active [facility] MELATONIN 3 MG ORAL TABLET give 1 tab by mouth at HS MELATONIN 30927805908 Active Mason Loredo MD Active LATANOPROST 0.005 % OPHTHALMIC SOLUTION instill 1 drop in both eyes at bed time LATANOPROST 31627246386 Active Mason Loredo MD Active AMARYL 2 MG ORAL TABLET give 2.5 tabs PO daily GLIMEPIRIDE 21766857056 Active Mason Loredo MD Active MIRALAX ORAL POWDER 17g by mouth q12h, for constipation POLYETHYLENE GLYCOL 3350 37787951275 Active Mason Loredo MD Active IBUPROFEN 400 MG ORAL TABLET 1 tab Q6H PRN IBUPROFEN 03316984608 Active Mason Loredo MD Active EFFEXOR XR 37.5 MG ORAL CAPSULE EXTENDED RELEASE 24 HOUR Take one by mouth daily VENLAFAXINE HCL 05509757100 Active Mima Erazo APRN Active FLUVOXAMINE MALEATE 50 MG ORAL TABLET 1 tab by mouth daily 04/01 FLUVOXAMINE MALEATE 47403466198 No Longer Active Mima Erazo APRN Active TRUE METRIX METER w/Device KIT Check blood sugars 3x/day BLOOD GLUCOSE MONITORING SUPPL 31278286364 Active Marvel Charles HARDNESS INSPECTOR Active VITAMIN D 2000 UNIT ORAL CAPSULE Take one by mouth daily CHOLECALCIFEROL 61333827300 Active Mima Erazo HEEL SEAT FITTER Active LATUDA 60 MG ORAL TABLET Take one by mouth daily LURASIDONE HCL 40350621185 No Longer Active Mima Erazo APRN Active CLONAZEPAM 1 MG ORAL TABLET 1 pill by mouth three times daily CLONAZEPAM 71172918510 Active Rhett Luther DO Active [facility] MILK OF MAGNESIA 400 MG/5ML ORAL SUSPENSION 30ml by mouth bid prn MAGNESIUM HYDROXIDE 89848007968 Active Mason Loredo MD Active TRAVATAN Z 0.004 % OPHTHALMIC SOLUTION 1 gtt each eye daily TRAVOPROST 01638391943 No Longer Active Mason Loredo MD Active LISINOPRIL 20 MG ORAL TABLET 1 BID LISINOPRIL 48707268456 No Longer Active Mason Loredo MD Active ZOLPIDEM TARTRATE 10 MG ORAL TABLET take at bedtime ZOLPIDEM TARTRATE 55449140450 No Longer Active Mason Loredo MD Active HYDROCODONE-ACETAMINOPHEN 5-325 MG ORAL TABLET 2 tabs by mouth three times daily for pain HYDROCODONE-ACETAMINOPHEN 39592224625 No Longer Active Mason Loredo MD Active ZOFRAN 4 MG ORAL TABLET 1 po q4hr PRN Nausea ONDANSETRON HCL 60309862325 No Longer Active Mason Loredo MD Active LOMOTIL 2.5-0.025 MG ORAL TABLET take 1-2 tabs PO after each stool, no more than 8 in 24 hours DIPHENOXYLATE-ATROPINE 47800761759 No Longer Active Mason Loredo MD Active COLACE 100 MG ORAL CAPSULE 1 pill by mouth twice daily, for constipation 2014 DOCUSATE SODIUM 46051675072 No Longer Active Mima Erazo APRN Active TOLTERODINE TARTRATE 2 MG ORAL TABLET 1 pill twice daily, for bladder TOLTERODINE TARTRATE 27810030685 No Longer Active Vanessa Hickey MD Active AMITIZA 24 MCG ORAL CAPSULE Take one capsule BID for constipation. LUBIPROSTONE 36478787085 No Longer Active Vanessa Hickey MD Active METOPROLOL SUCCINATE ER 100 MG ORAL TABLET EXTENDED RELEASE 24 HOUR 1 by mouth daily for blood pressure METOPROLOL SUCCINATE 06177148142 No Longer Active Grace Nascimento RMA Active METFORMIN HCL ER 500 MG ORAL TABLET EXTENDED RELEASE 24 HOUR Take three tablets by mouth everyday METFORMIN HCL 16496826073 No Longer Active Grace Azam RMA Active LOVAZA 1 GM ORAL CAPSULE 4 daily (for triglycerides) [id number] ETHYL ESTERS 43777678325 No Longer Active Grace Azam RMA Active TRAZODONE HCL 100 MG ORAL TABLET 1 tab by mouth for sleep TRAZODONE HCL 69358319160 No Longer Active Grace Azam RMA Active NOVOFINE 32G X 6 MM use one four times per day INSULIN PEN NEEDLE 25856348103 No Longer Active Grace Azam RMA Active BACTROBAN 2 % EXTERNAL CREAM Apply to affected area BID for up to 10 days MUPIROCIN CALCIUM 21838222806 No Longer Active Grace Azam RMA Active KEFLEX 500 MG ORAL CAPSULE 1 po BID x 7 days CEPHALEXIN 05202021662 No Longer Active Cherelle Avila APRN Active FLUVOXAMINE MALEATE 100 MG ORAL TABLET Take one (1) tablet by mouth am, 1/2 at noon FLUVOXAMINE MALEATE 45428158514 No Longer Active Mima Erazo ALBAN Active FLUVOXAMINE MALEATE 100 MG ORAL TABLET Take 1/2 tab at noon 03/04 FLUVOXAMINE MALEATE 78166566745 No Longer Active Cherelle Avila ALBAN Active ACCU-CHEK ROSA DEVICE Use device to check blood sugars BLOOD GLUCOSE MONITORING SUPPL 76522223220 No Longer Active Maljohn Mackenzieglari LOPEZ Active ACCU-CHEK ROSA IN VITRO STRIP use strips with device to check blood sugars 3 times daily GLUCOSE BLOOD 28378748677 No Longer Active Maljohn Mackenzieglari HARDNESS INSPECTOR Active VERAPAMIL HCL ER 180 MG ORAL TABLET EXTENDED RELEASE 1 pill by mouth twice daily, for migraine prevention VERAPAMIL HCL 59544731482 Active Mima Erazo ALBAN Active CYCLOBENZAPRINE HCL 10 MG ORAL TABLET 1 tablet by mouth three times daily, scheduled CYCLOBENZAPRINE HCL 33948133218 No Longer Active Alina Castaneda MD PhD Active HUMALOG 100 UNIT/ML SUBCUTANEOUS SOLUTION Take 20 units with breakfast, 10u with lunch and suppetr. INSULIN LISPRO (HUMAN) 85984815448 No Longer Active Alina Castaneda MD PhD Active TRUETEST TEST IN VITRO STRIP check sugars 4x/day GLUCOSE BLOOD 88007330294 No Longer Active Alina Castaneda MD PhD Active MORPHINE SULFATE 30 MG ORAL TABLET 1 pill by mouth twice daily, for pain 2013 MORPHINE SULFATE 37646062791 No Longer Active Mason Loredo MD Active ACYCLOVIR 400 MG ORAL TABLET 1 pill three times daily x 5 days, for cold sore outbreak ACYCLOVIR 95406831771 No Longer Active Alina Castaneda MD PhD Active PENICILLIN V POTASSIUM 500 MG ORAL TABLET 1 pill by mouth three times daily PENICILLIN V POTASSIUM 99315762316 No Longer Active Alina Castaneda MD PhD Active UROXATRAL 10 MG ORAL TABLET EXTENDED RELEASE 24 HOUR Take 1 tablet by mouth daily ALFUZOSIN HCL 92684275948 No Longer Active Alina Castaneda MD PhD Active THIOTHIXENE 5 MG ORAL CAPSULE by mouth twice a day THIOTHIXENE 02496392068 No Longer Active Alina Castaneda MD PhD Active ZYPREXA 7.5 MG ORAL TABLET 1 at HS OLANZAPINE 99931191576 No Longer Active Alina Castaneda MD PhD Active DETROL LA 4 MG ORAL CAPSULE EXTENDED RELEASE 24 HOUR Take 1 tablet by mouth daily TOLTERODINE TARTRATE 55736138105 No Longer Active Alina Castaneda MD PhD Active TERESE CONTOUR TEST IN VITRO STRIP monitor blood sugars 3x/day GLUCOSE BLOOD 53597707661 No Longer Active Alina Castaneda MD PhD Active EQL TRUETEST TEST IN VITRO STRIP Test blood sugar TID GLUCOSE BLOOD 89305653534 No Longer Active Alina Castaneda MD PhD Active FLUTICASONE PROPIONATE 50 MCG/ACT NASAL SUSPENSION 2 sprays each nostril qDay x 30 days FLUTICASONE PROPIONATE 80460855755 No Longer Active Alina Castaneda MD PhD Active IBUPROFEN 200 MG ORAL TABLET 1 Q 6 hr. PRN IBUPROFEN 49772813073 No Longer Active Alina Castaneda MD PhD Active NIACIN ER 500 MG ORAL TABLET EXTENDED RELEASE 4 qHS (for triglycerides) 01/13 NIACIN 82464862948 No Longer Active Alina Castaneda MD PhD Active SAPHRIS 5 MG SUBLINGUAL TABLET SUBLINGUAL by mouth twice a day ASENAPINE MALEATE 61244148453 No Longer Active Maljohn Mackenzieglestela MARROQUIN Active ACETAMINOPHEN 500 MG ORAL TABLET 2 Q 6 hr. PRN ACETAMINOPHEN 77679264675 No Longer Active Maljohn Ziglari HARDNESS INSPECTOR Active ORPHENADRINE CITRATE ER 100 MG ORAL TABLET EXTENDED RELEASE 12 HOUR 1 every 12 hr. as needed ORPHENADRINE CITRATE 51894717685 No Longer Active Alina Castaneda MD PhD Active NIACIN ER 500 MG ORAL TABLET EXTENDED RELEASE 2 qHS NIACIN 54601679953 No Longer Active Alina Castaneda MD PhD Active AMOXICILLIN 500 MG ORAL CAPSULE 2 po BID x 10 days AMOXICILLIN 95847172061 No Longer Active Alina Castaneda MD PhD Active HYDROCODONE-ACETAMINOPHEN 7.5-325 MG ORAL TABLET 1 four times a day as needed for pain HYDROCODONE-ACETAMINOPHEN 70292241682 No Longer Active Alina Castaneda MD PhD Active DOXEPIN HCL 10 MG ORAL CAPSULE Take 1 tablet by mouth daily DOXEPIN HCL 31509654110 No Longer Active Salina Ervinford [facility] Active NAVANE 10 MG CAPS 1/2 tablet twice a day THIOTHIXENE No Longer Active Salina Ervinford A Active CYCLOBENZAPRINE HCL 10 MG ORAL TABLET 1/2 tablet by mouth every 8 hours as needed for muscle spasms CYCLOBENZAPRINE HCL 20560960207 No Longer Active Alina Castaneda MD PhD Active BACTROBAN 2 % EXTERNAL CREAM apply to ear and nose twice daily MUPIROCIN CALCIUM 78338142418 No Longer Active Alina Castaneda MD PhD Active HYDROCODONE-ACETAMINOPHEN 5-325 MG ORAL TABLET take one tablet by mouth every four hours as needed for pain HYDROCODONE-ACETAMINOPHEN 00446777806 No Longer Active Alina Castaneda MD PhD Active ZYPREXA 5 MG ORAL TABLET take one tablet by mouth every evening OLANZAPINE 69010404390 No Longer Active Alina Castaneda MD PhD Active ALBUTEROL SULFATE (2.5 MG/3ML) 0.083% INHALATION NEBULIZATION SOLUTION one vial per nebulizer TID and PRN cough/soa ALBUTEROL SULFATE 86765968986 No Longer Active Alina Castaneda MD PhD Active GUAIFENESIN ER 600 MG ORAL TABLET EXTENDED RELEASE 12 HOUR 1 tablet by mouth twice daily if needed for cough GUAIFENESIN 11606132858 No Longer Active Marvel MARROQUIN Active AZITHROMYCIN 500 MG INTRAVENOUS SOLUTION RECONSTITUTED 1 po q day AZITHROMYCIN 83399883834 No Longer Active Alina Castaneda MD PhD Active PROMETHAZINE-CODEINE 6.25-10 MG/5ML ORAL SYRUP 1 tsp po q 6 hours prn cough PROMETHAZINE-CODEINE 57331272778 No Longer Active Alina Castaneda MD PhD Active CEFDINIR 300 MG ORAL CAPSULE by mouth twice a day CEFDINIR 62238786144 No Longer Active Alina Castaneda MD PhD Active METFORMIN HCL ER 500 MG ORAL TABLET EXTENDED RELEASE 24 HOUR Take 3 tablets by mouth everyday METFORMIN HCL 52245048831 No Longer Active Alina Castaneda MD PhD Active LEVEMIR 100 UNIT/ML SUBCUTANEOUS SOLUTION 90 units SQ qHS INSULIN DETEMIR 86423515317 No Longer Active Marvel MARROQUIN Active TOPROL XL 100 MG ORAL TABLET EXTENDED RELEASE 24 HOUR 1 @ HS METOPROLOL SUCCINATE 93720836773 No Longer Active Marvel MARROQUIN Active ALLOPURINOL 300 MG ORAL TABLET Take one by mouth daily ALLOPURINOL 38121267924 Active Mima Erazo APRN Active ZYPREXA 10 MG ORAL TABLET Take one by mouth daily OLANZAPINE 43377972193 No Longer Active Alina Castaneda MD PhD Active NOVOLOG 100 UNIT/ML SUBCUTANEOUS SOLUTION 40 units with every meal INSULIN ASPART 10774093767 No Longer Active Alina Castaneda MD PhD Active VERAPAMIL HCL ER 120 MG ORAL TABLET EXTENDED RELEASE 1 qPM 09/08 VERAPAMIL HCL 64567700011 No Longer Active Salina ROJAS Active ZYPREXA 15 MG ORAL TABLET Take 1 tablet by mouth daily OLANZAPINE 07714391122 No Longer Active Marvel MARROQUIN Active ALBUTEROL SULFATE (2.5 MG/3ML) 0.083% INHALATION NEBULIZATION SOLUTION 1 neb tid and prn cough ALBUTEROL SULFATE 16665397451 No Longer Active Alina Castaneda MD PhD Active LANTUS 100 UNIT/ML SUBCUTANEOUS SOLUTION 60 units sq q hs INSULIN GLARGINE 69649686975 No Longer Active CRYSTAL Suarez Active ALBUTEROL SULFATE (2.5 MG/3ML) 0.083% INHALATION NEBULIZATION SOLUTION 1 neb tid and prn cough ALBUTEROL SULFATE (2.5 MG/3ML) 0.083% INHALATION NEBULIZATION SOLUTION 445444 ALBUTEROL SULFATE Inactive ZYPREXA 15 MG ORAL TABLET Take 1 tablet by mouth daily ZYPREXA 15 MG ORAL TABLET 966463 OLANZAPINE Inactive VERAPAMIL HCL ER 120 MG ORAL TABLET EXTENDED RELEASE 1 qPM 09/08 VERAPAMIL HCL ER 120 MG ORAL TABLET EXTENDED RELEASE VERAPAMIL HCL Inactive ZYPREXA 10 MG ORAL TABLET Take one by mouth daily ZYPREXA 10 MG ORAL TABLET 241130 OLANZAPINE Inactive TOPROL XL 100 MG ORAL TABLET EXTENDED RELEASE 24 HOUR 1 @ HS TOPROL XL 100 MG ORAL TABLET EXTENDED RELEASE 24 HOUR METOPROLOL SUCCINATE Inactive LEVEMIR 100 UNIT/ML SUBCUTANEOUS SOLUTION 90 units SQ qHS LEVEMIR 100 UNIT/ML SUBCUTANEOUS SOLUTION INSULIN DETEMIR Inactive PROMETHAZINE-CODEINE 6.25-10 MG/5ML ORAL SYRUP 1 tsp po q 6 hours prn cough PROMETHAZINE-CODEINE 6.25-10 MG/5ML ORAL SYRUP 719127 PROMETHAZINE-CODEINE Inactive GUAIFENESIN ER 600 MG ORAL TABLET EXTENDED RELEASE 12 HOUR 1 tablet by mouth twice daily if needed for cough GUAIFENESIN ER 600 MG ORAL TABLET EXTENDED RELEASE 12 HOUR GUAIFENESIN Inactive ALBUTEROL SULFATE (2.5 MG/3ML) 0.083% INHALATION NEBULIZATION SOLUTION one vial per nebulizer TID and PRN cough/soa ALBUTEROL SULFATE (2.5 MG/3ML) 0.083% INHALATION NEBULIZATION SOLUTION 471475 ALBUTEROL SULFATE Inactive ZYPREXA 5 MG ORAL TABLET take one tablet by mouth every evening ZYPREXA 5 MG ORAL TABLET 569069 OLANZAPINE Inactive HYDROCODONE-ACETAMINOPHEN 5-325 MG ORAL TABLET take one tablet by mouth every four hours as needed for pain HYDROCODONE-ACETAMINOPHEN 5-325 MG ORAL TABLET 658446 HYDROCODONE-ACETAMINOPHEN Inactive BACTROBAN 2 % EXTERNAL CREAM apply to ear and nose twice daily BACTROBAN 2 % EXTERNAL CREAM 816104 MUPIROCIN CALCIUM Inactive CYCLOBENZAPRINE HCL 10 MG ORAL TABLET 1/2 tablet by mouth every 8 hours as needed for muscle spasms CYCLOBENZAPRINE HCL 10 MG ORAL TABLET 830910 CYCLOBENZAPRINE HCL Inactive NAVANE 10 MG CAPS 1/2 tablet twice a day NAVANE 10 MG CAPS THIOTHIXENE Inactive DOXEPIN HCL 10 MG ORAL CAPSULE Take 1 tablet by mouth daily DOXEPIN HCL 10 MG ORAL CAPSULE 1038514 DOXEPIN HCL Inactive HYDROCODONE-ACETAMINOPHEN 7.5-325 MG ORAL TABLET 1 four times a day as needed for pain HYDROCODONE-ACETAMINOPHEN 7.5-325 MG ORAL TABLET 874271 HYDROCODONE-ACETAMINOPHEN Inactive NIACIN ER 500 MG ORAL [...] hr. PRN ACETAMINOPHEN 500 MG ORAL TABLET 471702 ACETAMINOPHEN Inactive SAPHRIS 5 MG SUBLINGUAL TABLET SUBLINGUAL by mouth twice a day SAPHRIS 5 MG SUBLINGUAL TABLET SUBLINGUAL ASENAPINE MALEATE Inactive NIACIN ER 500 MG ORAL TABLET EXTENDED RELEASE 4 qHS (for triglycerides) 01/13 NIACIN ER 500 MG ORAL TABLET EXTENDED RELEASE NIACIN Inactive IBUPROFEN 200 MG ORAL TABLET 1 Q 6 hr. PRN IBUPROFEN 200 MG ORAL TABLET 162009 IBUPROFEN Inactive FLUTICASONE PROPIONATE 50 MCG/ACT NASAL SUSPENSION 2 sprays each nostril qDay x 30 days FLUTICASONE PROPIONATE 50 MCG/ACT NASAL SUSPENSION 2128485 FLUTICASONE PROPIONATE Inactive EQL TRUETEST TEST IN [...] at HS ZYPREXA 7.5 MG ORAL TABLET 373590 OLANZAPINE Inactive THIOTHIXENE 5 MG ORAL CAPSULE by mouth twice a day THIOTHIXENE 5 MG ORAL CAPSULE 982738 THIOTHIXENE Inactive UROXATRAL 10 MG ORAL TABLET EXTENDED RELEASE 24 HOUR Take 1 tablet by mouth daily UROXATRAL 10 MG ORAL TABLET EXTENDED RELEASE 24 HOUR ALFUZOSIN HCL Inactive ACYCLOVIR 400 MG ORAL TABLET 1 pill three times daily x 5 days, for cold sore outbreak ACYCLOVIR 400 MG ORAL TABLET 190159 ACYCLOVIR Inactive TRUETEST TEST IN VITRO STRIP check sugars 4x/day TRUETEST TEST IN VITRO STRIP GLUCOSE BLOOD Inactive HUMALOG 100 UNIT/ML SUBCUTANEOUS SOLUTION Take 20 units with breakfast, 10u with lunch and suppetr. HUMALOG 100 UNIT/ML SUBCUTANEOUS SOLUTION INSULIN LISPRO (HUMAN) Inactive CYCLOBENZAPRINE HCL 10 MG ORAL TABLET 1 tablet by mouth three times daily, scheduled CYCLOBENZAPRINE HCL 10 MG ORAL TABLET 811461 CYCLOBENZAPRINE HCL Inactive ACCU-CHEK ROSA IN VITRO STRIP use strips with device to check blood sugars 3 times daily ACCU-CHEK ROSA IN VITRO STRIP GLUCOSE BLOOD Inactive ACCU-CHEK ROSA DEVICE Use device to check blood sugars ACCU-CHEK ROSA DEVICE BLOOD GLUCOSE MONITORING SUPPL Inactive FLUVOXAMINE MALEATE 100 MG ORAL TABLET Take 1/2 tab at noon 03/04 FLUVOXAMINE MALEATE 100 MG ORAL TABLET 343661 FLUVOXAMINE MALEATE Inactive FLUVOXAMINE MALEATE 100 MG ORAL TABLET Take one (1) tablet by mouth am, 1/2 at noon FLUVOXAMINE MALEATE 100 MG ORAL TABLET 102529 FLUVOXAMINE MALEATE Inactive BACTROBAN 2 % EXTERNAL CREAM Apply to affected area BID for up to 10 days BACTROBAN 2 % EXTERNAL CREAM 675184 MUPIROCIN CALCIUM Inactive NOVOFINE 32G X 6 MM use one four times per day NOVOFINE 32G X 6 MM INSULIN PEN NEEDLE Inactive TRAZODONE HCL 100 MG ORAL TABLET 1 tab by mouth for sleep TRAZODONE HCL 100 MG ORAL TABLET 375298 TRAZODONE HCL Inactive LOVAZA 1 GM ORAL CAPSULE 4 daily (for triglycerides) LOVAZA 1 GM ORAL CAPSULE 075418 [id number] ETHYL ESTERS Inactive METFORMIN HCL ER 500 [...] bladder TOLTERODINE TARTRATE 2 MG ORAL TABLET 091085 TOLTERODINE TARTRATE Inactive COLACE 100 MG ORAL CAPSULE 1 pill by mouth twice daily, for constipation 2014 COLACE 100 MG ORAL CAPSULE 0948443 DOCUSATE SODIUM Inactive LOMOTIL 2.5-0.025 MG ORAL TABLET take 1-2 tabs PO after each stool, no more than 8 in 24 hours LOMOTIL 2.5-0.025 MG ORAL TABLET 5297115 DIPHENOXYLATE-ATROPINE Inactive ZOFRAN 4 MG ORAL TABLET 1 po q4hr PRN Nausea ZOFRAN 4 MG ORAL TABLET 782172 ONDANSETRON HCL Inactive HYDROCODONE-ACETAMINOPHEN 5-325 MG ORAL TABLET 2 tabs by mouth three times daily for pain HYDROCODONE-ACETAMINOPHEN 5-325 MG ORAL TABLET 157793 HYDROCODONE-ACETAMINOPHEN Inactive ZOLPIDEM TARTRATE 10 MG ORAL TABLET take at bedtime ZOLPIDEM TARTRATE 10 MG ORAL TABLET 176182 ZOLPIDEM TARTRATE Inactive LISINOPRIL 20 MG ORAL TABLET 1 BID LISINOPRIL 20 MG ORAL TABLET 248617 LISINOPRIL Inactive TRAVATAN Z 0.004 % OPHTHALMIC SOLUTION 1 gtt each eye daily TRAVATAN Z 0.004 % OPHTHALMIC SOLUTION TRAVOPROST Inactive LATUDA 60 MG ORAL TABLET Take one by mouth daily LATUDA 60 MG ORAL TABLET LURASIDONE HCL Inactive FLUVOXAMINE MALEATE 50 MG ORAL TABLET 1 tab by mouth daily 04/01 FLUVOXAMINE MALEATE 50 MG ORAL TABLET 475093 FLUVOXAMINE MALEATE Inactive LEVEMIR FLEXTOUCH 100 UNIT/ML [...] 30G 3 a day TRUEPLUS LANCETS 30G [id number] LANCETS Inactive AMITIZA 24 MCG ORAL CAPSULE [...] noon FLUVOXAMINE MALEATE 100 MG ORAL TABLET 586243 FLUVOXAMINE MALEATE Inactive FLONASE ALLERGY RELIEF 50 MCG/ACT NASAL SUSPENSION One spray each nostril BID x 1 week then daily FLONASE ALLERGY RELIEF 50 MCG/ACT NASAL SUSPENSION 0256970 FLUTICASONE PROPIONATE Inactive IMODIUM A-D 2 MG ORAL TABLET 1 tab QID as needed IMODIUM A-D 2 MG ORAL TABLET 256426 LOPERAMIDE HCL Inactive MYLANTA GAS RELIEF MAXIMUM STR 125 MG ORAL CAPSULE 30cc every 4 hours prn MYLANTA GAS RELIEF MAXIMUM STR 125 MG ORAL CAPSULE SIMETHICONE Inactive TRUEPLUS LANCETS 30G 3x a day TRUEPLUS LANCETS 30G 85446826994 LANCETS Inactive TRUE METRIX BLOOD GLUCOSE TEST [...] headaches TRAZODONE HCL 100 MG ORAL TABLET 775816 TRAZODONE HCL Inactive TYLENOL 8 HOUR 650 MG ORAL TABLET EXTENDED RELEASE 1 tab QID prn TYLENOL 8 HOUR 650 MG ORAL TABLET EXTENDED RELEASE ACETAMINOPHEN Inactive [facility] LUBRICANT EYE DROPS 0.4-0.3 % OPHTHALMIC SOLUTION [facility] LUBRICANT EYE DROPS 0.4-0.3 % OPHTHALMIC SOLUTION POLYETHYL GLYCOL- PROPYL GLYCOL Inactive CEFDINIR 300 MG ORAL CAPSULE by mouth twice a day CEFDINIR 300 MG ORAL CAPSULE 940655 CEFDINIR Inactive AZITHROMYCIN 500 MG INTRAVENOUS SOLUTION RECONSTITUTED 1 po q day AZITHROMYCIN 500 MG INTRAVENOUS SOLUTION RECONSTITUTED 77851832256 AZITHROMYCIN Inactive AMOXICILLIN 500 MG ORAL CAPSULE 2 po BID x 10 days AMOXICILLIN 500 MG ORAL CAPSULE 281713 AMOXICILLIN Inactive PENICILLIN V POTASSIUM 500 MG ORAL TABLET 1 pill by mouth three times daily PENICILLIN V POTASSIUM 500 MG ORAL TABLET 462109 PENICILLIN V POTASSIUM Inactive KEFLEX 500 MG ORAL CAPSULE 1 po BID x 7 days KEFLEX 500 MG ORAL CAPSULE 841728 CEPHALEXIN Inactive Immunizations Vaccine Administration Date Value [...] Fluvirin, Fluarix, Agriflu(>=18 yo)) Fluzone (>3 yrs.) [[id number]] Influenza, seasonal, injectable pneumococcal immunization administered Pneumovax [...] ... - Chemistry sodium, serum 135 mmol/L 033-824 9862/08/22 carbon dioxide, venous blood 28.4 mmol/L 21.0-32.0 [...] mg/g {creat} 0-29 cholesterol, serum 263 mg/dL 219-370 5210/08/22 triglyceride, serum, fasting 1312 mg/dL 30-200 HDL [...] ordered Encounters Code Encounter Date Provider Facility CPT-[id number] Level 3 Est. Patient 09:12:14 [employer] Mima Yoliudmila [facility] CPT-83730 Level 3 Est. Patient 16:52:51 CDT Vanessa Hickey MD [id number] Level 3 Est. Patient 17:40:16 CDT Mima Erazo [facility] CPT-50187 Level 3 Est. Patient 14:34:52 CDT Vanessa Hickey MD [facility]-13678 Level 3 Est. Patient 16:27:51 CDT Mima Erazo [facility] CPT-31933 Level 3 Est. Patient 14:39:00 WOOD FENCE ERECTOR Vanessa Hickey MD [facility]-48265 Level 2 Est. Patient 18:43:34 CDT Mima Erazo [facility] CPT-23278 Level 3 Est. Patient 16:22:09 CDT Cherelle Avila [facility] CPT-34649 Level 4 Est. Patient 17:55:14 CDT Mima Erazo [facility] CPT-02789 Level 2 Est. Patient 17:13:21 CDT Alina Castaneda MD [facility] CPT-20569 Level 3 Est. Patient 14:46:15 CDT Vanessa Hickey MD [facility]-01362 Level 3 Est. Patient 09:34:56 CDT Alina Castaneda MD [facility]-45782 Level 3 Est. Patient 21:40:19 CDT Mima Jeffliudmila [facility] CPT-97162 Level 3 Est. Patient 09:26:40 CDT Marvel Charles [facility] CPT-03255 Level 3 Est. Patient 12:36:43 CDT Vanessa Hickey MD [facility]-91394 Level 3 Est. Patient 12:57:49 CDT Vanessa Hickey MD [facility]-98260 Level 3 Est. Patient 00:28:25 CDT Alina Castaneda MD [facility]75234 Level 2 Est. Patient 12:52:14 CDT Alina Castaneda MD [facility]35380 Level 3 Est. Patient 11:51:18 WOOD FENCE ERECTOR Alina Castaneda MD [facility]-70447 Level 3 Est. Patient 10:09:22 WOOD FENCE ERECTOR Alina Castaneda MD [facility]35627 Level 3 Est. Patient 14:36:26 WOOD FENCE ERECTOR Marvel Charles [facility]-55827 Level 3 Est. Patient 13:34:47 WOOD FENCE ERECTOR Alina Castaneda MD [facility]96719 Level 3 Est. Patient 19:52:08 WOOD FENCE ERECTOR Alina Castaneda MD [facility]-47529 Level 3 Est. Patient 10:01:51 WOOD FENCE ERECTOR Marvel Charles [facility]-60411 Level 3 Est. Patient 21:54:06 CDT Vanessa Hickey MD [facility]-36958 Level 3 Est. Patient 08:54:46 CDT Alina Castaneda MD [facility]-38696 Level 3 Est. Patient 09:32:11 CDT Marvel Charles [facility]-67721 Level 3 Est. Patient 12:02:49 CDT Alina Castaneda MD [facility]48504 Level 3 Est. Patient 19:17:33 CDT Alina Castaneda MD [facility]94295 Level 3 Est. Patient 13:19:10 CDT Marvel Charles [facility]-05083 Level 3 Est. Patient 08:20:05 CDT Alina Castaneda MD [facility]06490 Level 3 Est. Patient 15:17:18 CDT Alina Castaneda MD [facility]01792 Level 3 Est. Patient 14:25:36 WOOD FENCE ERECTOR Marvel Charles [facility]-72939 Level 3 Est. Patient 10:09:15 WOOD FENCE ERECTOR Marvel Charles [facility]-90872 Level 3 Est. Patient 21:28:43 CDT Alina Castaneda MD [facility]80388 Level 3 Est. Patient 15:20:11 CDT [facility] Level 4 Est. Patient 19:08:12 CDT Alina Castaneda MD [facility]-86850 Level 3 Est. Patient 15:06:39 CDT Marvel Charles [facility]-54134 Level 4 Est. Patient 17:48:15 CDT Alina Castaneda MD [facility]-48543 Level 3 Est. Patient 14:53:49 CDT Alina Castaneda MD [facility]-95882 Level 3 Est. Patient 09:35:16 CDT Alina Castaneda MD [facility]-07801 Level 3 Est. Patient 12:23:22 CDT Alina Castaneda MD [facility]85702 Level 3 Est. Patient 16:19:15 CDT Alina Castaneda MD [facility]94394 Level 3 Est. Patient 21:39:56 WOOD FENCE ERECTOR Alina Castaneda MD [facility]-31303 Level 4 Est. Patient 14:12:56 WOOD FENCE ERECTOR Alina Castaneda MD [facility]-22062 Level 2 Est. Patient 15:34:57 WOOD FENCE ERECTOR Alina Castaneda MD [facility]62051 Level 3 Est. Patient 12:17:04 WOOD FENCE ERECTOR Alina Castaneda MD [facility]00486 Level 3 Est. Patient 09:18:18 WOOD FENCE ERECTOR Marvel Charles [facility]-83127 Level 2 Est. Patient 21:50:24 CDT Alina Castaneda MD [facility]01304 Level 3 Est. Patient 09:17:28 CDT Marvel Charles [facility]-60437 Level 4 Est. Patient 18:54:02 CDT Alina Castaneda MD [facility]-95460 Level 3 Est. Patient 10:47:10 CDT Alina Castaneda MD [facility]-24455 Level 3 Est. Patient 09:22:20 CDT Marvel Charles [facility]-13785 Level 3 Est. Patient 16:39:43 CDT Marvel Charles [facility]-18547 Level 3 Est. Patient 16:05:16 CDT Alina Castaneda MD [facility]-16490 Level 3 Est. Patient 00:29:15 CDT Alina Castaneda MD [facility]42321 Level 3 Est. Patient 10:49:22 WOOD FENCE ERECTOR Marvel Charles [facility]-16631 Level 3 Est. Patient 21:30:19 WOOD FENCE ERECTOR Alina Castaneda MD PhD [facility] CPT-03782 Level 4 Est. Patient 17:04:11 WOOD FENCE ERECTOR [place] Charles [facility] CPT-73674 Level 3 Est. Patient 15:34:11 WOOD FENCE ERECTOR [facility] CPT-30468 Level 2 Est. Patient 12:51:58 WOOD FENCE ERECTOR Alina Castaneda MD PhD [facility] CPT-04643 Level 3 Est. Patient 13:20:01 WOOD FENCE ERECTOR Alina Castaneda MD PhD [facility] CPT-19224 Level 3 Est. Patient 09:23:35 CDT Alina Castaneda MD PhD [facility] Procedures Code Procedure Name Date Entry Date Standard Description CPT-TCMM Transitional Care Mgmt-Moderate 12:32:19 CDT CPT-57809 Level 2 Long Term 09:01:11 CDT CPT-65922 HGBA1C - LAB USE ONLY 09:30:27 WOOD [employer]ENCE E[employer]OR CPT-81638 BMP - LAB USE ONLY 09:30:27 WOOD FENCE E[employer]OR CPT-13978 Venipuncture Draw Fee 09:30:26 WOOD FENCE E[employer]OR CPT-TCMM Transitional Care Mgmt-Moderate 10:25:31 CDT CPT-00616 Bladder Scan 14:34:53 CDT CPT-89352 Bladder Scan 14:39:01 WOOD FENCE E[employer]OR CPT-TCMM Transitional Care Mgmt-Moderate 10:30:19 WOOD FENCE E[employer]OR CPT-38261 Bladder Scan 12:36:44 CDT CPT-99154 Bladder Scan 21:54:06 CDT CPT-G0008 Administration of Influenza Virus Vaccine 13:05:26 CDT CPT-85897 Fluzone Quadrivalent Intramuscular Suspension 0.5 ML 13: 05:26 CDT CPT-92172 Administration single or combination vaccine inc oral 11 :49:51 CDT CPT-57780 Pneumovax 11:49:51 CDT CPT-51173 Ribs unilateral 2V 12:37:22 WOOD FENCE E[employer]OR CPT-38000 Chest 2V Frontal and Lat 17:15:26 CDT CPT-08692 Abx/Therapy Injection 18:54:02 CDT CPT-J0696 Rocephin 1000 mg (Ceftriaxone) 16:00:32 CDT CPT-13972 Chest 2V Frontal and Lat 15:26:45 CDT CPT-60720 Chest 2V Frontal and Lat 10:23:27 CDT CPT-75757 Venipuncture Draw Fee 10:11:00 CDT CPT-38070 Administration single or combination vaccine inc oral 11 :56:38 CDT CPT-40900 Influenza split virus > age 3 11:56:38 CDT CPT-34512 Venipuncture Draw Fee 08:49:54 WOOD FENCE E[employer]OR CPT-58099 EKG Trac and Interp 17:54:19 WOOD FENCE ERECTOR
--- OUTSIDE RECORDS SUMMARY | 2018-07-02 12:57 | XMS REPORT | Clinical Summary ---
Author Author Admin, TERELL Organization [facility] Address Unknown Phone Unavailable Allergies, Adverse Reactions, [...] mellitus, type II 250.00 Active Marvel Thurstonari HYDROSTATIC TUBING TESTER Diabetes mellitus without mention of complication, type [...] Take 1 tablet by mouth daily FENOFIBRATE 43693832313 Active Mya Ledezma MA Active SEROQUEL 50 MG ORAL TABLET Take Give 1 tablet by mouth at bedtime QUETIAPINE FUMARATE 08954113487 Active Mason Loredo MD Active OCEAN NASAL SPRAY SOLUTION 2 sprays in both nostrils every 8 hours as needed for dry mucous membranes SALINE SOLN 25061961175 Active Mason Loredo MD Active BETHANECHOL CHLORIDE 25 MG ORAL TABLET Take 1 tablet mouth four times a day BETHANECHOL CHLORIDE 51375179946 Active Mason Loredo MD Active [facility] LUBR[facility] DROPS 0.4-0.3 % OPHTHALMIC SOLUTION POLYETHYL GLYCOL-PROPYL GLYCOL 98912767564 No Longer Active Mason Loredo MD Active TYLENOL 8 HOUR 650 MG ORAL TABLET EXTENDED RELEASE 1 tab QID prn ACETAMINOPHEN 07578131687 No Longer Active Mason Loredo MD Active TOPAMAX 25 MG ORAL TABLET 1 tab BID PRN TOPIRAMATE 31400790313 Active Mason Loredo MD Active TIMOPTIC OCUDOSE 0.5 % OPHTHALMIC SOLUTION instill one drop into both eyes q12H TIMOLOL MALEATE 11253029421 Active Mason Loredo MD Active TRAZODONE HCL 100 MG ORAL TABLET 1 every night to prevent headaches TRAZODONE HCL 82623712863 No Longer Active Mason Loredo MD Active TRAVATAN Z 0.004 % OPHTHALMIC SOLUTION 1 drop each eye daily 2017 TRAVOPROST 45718353921 No Longer Active Mason Loredo MD Active LATUDA 60 MG ORAL TABLET 1 tab daily LURASIDONE HCL 42344488995 No Longer Active Mason Loredo MD Active MORPHINE SULFATE ER 30 MG ORAL TABLET EXTENDED RELEASE Take one capsule BID MORPHINE SULFATE 70275375359 No Longer Active Mason Loredo MD Active TRUE METRIX BLOOD GLUCOSE TEST IN VITRO STRIP Check blood sugars 3x/day. 2015 GLUCOSE BLOOD 05093808222 No Longer Active Mason Loredo MD Active TRUEPLUS LANCETS 30G 3x a day LANCETS 19814013037 No Longer Active Mason Loredo MD Active MYLANTA GAS RELIEF MAXIMUM STR 125 MG ORAL CAPSULE 30cc every 4 hours prn SIMETHICONE 28121184369 No Longer Active Mason Loredo MD Active IMODIUM A-D 2 MG ORAL TABLET 1 tab QID as needed LOPERAMIDE HCL 66306282174 No Longer Active Mason Loredo MD Active FLONASE ALLERGY RELIEF 50 MCG/ACT NASAL SUSPENSION One spray each nostril BID x 1 week then daily FLUTICASONE PROPIONATE 07376158448 No Longer Active Mason Loredo MD Active FLUVOXAMINE MALEATE 100 MG ORAL TABLET take one tab every AM et HS, and take 1 /2 tab at noon FLUVOXAMINE MALEATE 83013989904 No Longer Active Mason Loredo MD Active BD PEN NEEDLE MINI U/F 31G X 5 MM 4 a day INSULIN PEN NEEDLE 09867796716 No Longer Active Mason Loredo MD Active AMITIZA 24 MCG ORAL CAPSULE Take one capsule BID for constipation LUBIPROSTONE 40549830315 No Longer Active Mason Loredo MD Active TRUEPLUS LANCETS 30G 3 a day LANCETS 51158598586 No Longer Active Mason Loredo MD Active CORICIDIN HBP CONGESTION/COUGH 10-200 MG ORAL CAPSULE Take as directed on box as needed for cold/flu symptoms DEXTROMETHORPHAN- GUAIFENESIN 87033847936 No Longer Active Mason Loredo MD Active OMEGA-3 300 MG ORAL CAPSULE 4 caps by mouth daily OMEGA-3 FATTY ACIDS 34455181318 No Longer Active Mason Loredo MD Active HUMALOG KWIKPEN 100 UNIT/ML SUBCUTANEOUS SOLUTION PEN-INJECTOR sliding scale if needed INSULIN LISPRO (HUMAN) 53532512621 No Longer Active Mason Loredo MD Active TRUETEST TEST IN VITRO STRIP check blood sugars 3x/day GLUCOSE BLOOD 90325901055 No Longer Active Mason Loredo MD Active ALFUZOSIN HCL ER 10 MG ORAL TABLET EXTENDED RELEASE 24 HOUR 1 tablet daily ALFUZOSIN HCL 26886335556 No Longer Active Mason Loredo MD Active BD INSULIN SYRINGE 28G X 1/2" 1 ML 1 four times per day INSULIN SYRINGE-NEEDLE U-100 89367383808 No Longer Active Mason Loredo MD Active LEVEMIR FLEXTOUCH 100 UNIT/ML SUBCUTANEOUS SOLUTION PEN-INJECTOR 60 units SQ each evening, for diabetes INSULIN DETEMIR 85380521763 No Longer Active Mason Loredo MD Active METFORMIN HCL ER (MOD) 500 MG ORAL TABLET EXTENDED RELEASE 24 HOUR give two tabs PO BID METFORMIN HCL 48796039736 Active Mason Loredo MD Active LACTULOSE 20 GM/30ML ORAL SOLUTION give 30 Ml PO BID PRN LACTULOSE 01461600543 Active Mason Loredo MD Active COLACE 100 MG ORAL CAPSULE 1 tab BID PRN DOCUSATE SODIUM 40998812325 Active Mason Loredo MD Active TAMSULOSIN HCL 0.4 MG ORAL CAPSULE give 2 capsules PO each evening TAMSULOSIN HCL 97395391919 Active Mason Loredo MD Active [facility] MELATONIN 3 MG ORAL TABLET give 1 tab by mouth at HS MELATONIN 81886700225 Active Mason Loredo MD Active LATANOPROST 0.005 % OPHTHALMIC SOLUTION instill 1 drop in both eyes at bed time LATANOPROST 32202114915 Active Mason Loredo MD Active AMARYL 2 MG ORAL TABLET give 2.5 tabs PO daily GLIMEPIRIDE 02041340665 Active Mason Loredo MD Active MIRALAX ORAL POWDER 17g by mouth q12h, for constipation POLYETHYLENE GLYCOL 3350 60640452361 Active Mason Loredo MD Active IBUPROFEN 400 MG ORAL TABLET 1 tab Q6H PRN IBUPROFEN 94529113036 Active Mason Loredo MD Active EFFEXOR XR 37.5 MG ORAL CAPSULE EXTENDED RELEASE 24 HOUR Take one by mouth daily VENLAFAXINE HCL 11901598365 Active Mima Eraoz APRN Active FLUVOXAMINE MALEATE 50 MG ORAL TABLET 1 tab by mouth daily 04/01 FLUVOXAMINE MALEATE 50712175046 No Longer Active Mima Erazo APRN Active TRUE METRIX METER w/Device KIT Check blood sugars 3x/day BLOOD GLUCOSE MONITORING SUPPL 26290673242 Active Mravel Charles HYDROSTATIC TUBING TESTER Active VITAMIN D 2000 UNIT ORAL CAPSULE Take one by mouth daily CHOLECALCIFEROL 87961892852 Active Mima Erazo FIELD SUPPORT TECHNICIAN Active LATUDA 60 MG ORAL TABLET Take one by mouth daily LURASIDONE HCL 24387529778 No Longer Active Mima Erazo APRN Active CLONAZEPAM 1 MG ORAL TABLET 1 pill by mouth three times daily CLONAZEPAM 34923181883 Active Rhett Luther DO Active [facility] MILK OF MAGNESIA 400 MG/5ML ORAL SUSPENSION 30ml by mouth bid prn MAGNESIUM HYDROXIDE 22905913680 Active Mason Loredo MD Active TRAVATAN Z 0.004 % OPHTHALMIC SOLUTION 1 gtt each eye daily TRAVOPROST 34228834046 No Longer Active Mason Loredo MD Active LISINOPRIL 20 MG ORAL TABLET 1 BID LISINOPRIL 93294925940 No Longer Active Mason Loredo MD Active ZOLPIDEM TARTRATE 10 MG ORAL TABLET take at bedtime ZOLPIDEM TARTRATE 02284917033 No Longer Active Mason Loredo MD Active HYDROCODONE-ACETAMINOPHEN 5-325 MG ORAL TABLET 2 tabs by mouth three times daily for pain HYDROCODONE-ACETAMINOPHEN 52534626634 No Longer Active Mason Loredo MD Active ZOFRAN 4 MG ORAL TABLET 1 po q4hr PRN Nausea ONDANSETRON HCL 64497001607 No Longer Active Mason Loredo MD Active LOMOTIL 2.5-0.025 MG ORAL TABLET take 1-2 tabs PO after each stool, no more than 8 in 24 hours DIPHENOXYLATE-ATROPINE 62579198508 No Longer Active Mason Loredo MD Active COLACE 100 MG ORAL CAPSULE 1 pill by mouth twice daily, for constipation 2014 DOCUSATE SODIUM 71292061756 No Longer Active Mima Erazo APRN Active TOLTERODINE TARTRATE 2 MG ORAL TABLET 1 pill twice daily, for bladder TOLTERODINE TARTRATE 12269788835 No Longer Active Vanessa Hickey MD Active AMITIZA 24 MCG ORAL CAPSULE Take one capsule BID for constipation. LUBIPROSTONE 58592616579 No Longer Active Vanessa Hickey MD Active METOPROLOL SUCCINATE ER 100 MG ORAL TABLET EXTENDED RELEASE 24 HOUR 1 by mouth daily for blood pressure METOPROLOL SUCCINATE 22826226123 No Longer Active Grace Nascimento RMA Active METFORMIN HCL ER 500 MG ORAL TABLET EXTENDED RELEASE 24 HOUR Take three tablets by mouth everyday METFORMIN HCL 49462531251 No Longer Active Grace Azam RMA Active LOVAZA 1 GM ORAL CAPSULE 4 daily (for triglycerides) [id number] ETHYL ESTERS 15311616891 No Longer Active Grace Azam RMA Active TRAZODONE HCL 100 MG ORAL TABLET 1 tab by mouth for sleep TRAZODONE HCL 84712867526 No Longer Active Grace Azam RMA Active NOVOFINE 32G X 6 MM use one four times per day INSULIN PEN NEEDLE 20303267121 No Longer Active Grace Azam RMA Active BACTROBAN 2 % EXTERNAL CREAM Apply to affected area BID for up to 10 days MUPIROCIN CALCIUM 14940350817 No Longer Active Grace Azam RMA Active KEFLEX 500 MG ORAL CAPSULE 1 po BID x 7 days CEPHALEXIN 96540424303 No Longer Active Cherelle Avila APRN Active FLUVOXAMINE MALEATE 100 MG ORAL TABLET Take one (1) tablet by mouth am, 1/2 at noon FLUVOXAMINE MALEATE 12225910393 No Longer Active Mima Erazo ALBAN Active FLUVOXAMINE MALEATE 100 MG ORAL TABLET Take 1/2 tab at noon 03/04 FLUVOXAMINE MALEATE 55472767051 No Longer Active Cherelle Avila ALBAN Active ACCU-CHEK ROSA DEVICE Use device to check blood sugars BLOOD GLUCOSE MONITORING SUPPL 59100564608 No Longer Active Maljohn Mackenzieglari LOPEZ Active ACCU-CHEK ROSA IN VITRO STRIP use strips with device to check blood sugars 3 times daily GLUCOSE BLOOD 36602403979 No Longer Active Maljohn Mackenzieglari HYDROSTATIC TUBING TESTER Active VERAPAMIL HCL ER 180 MG ORAL TABLET EXTENDED RELEASE 1 pill by mouth twice daily, for migraine prevention VERAPAMIL HCL 78503231357 Active Mima Erazo ALBAN Active CYCLOBENZAPRINE HCL 10 MG ORAL TABLET 1 tablet by mouth three times daily, scheduled CYCLOBENZAPRINE HCL 33506652617 No Longer Active Alina Castaneda MD PhD Active HUMALOG 100 UNIT/ML SUBCUTANEOUS SOLUTION Take 20 units with breakfast, 10u with lunch and suppetr. INSULIN LISPRO (HUMAN) 00584925258 No Longer Active Alina Castaneda MD PhD Active TRUETEST TEST IN VITRO STRIP check sugars 4x/day GLUCOSE BLOOD 86913616297 No Longer Active Alian Castaneda MD PhD Active MORPHINE SULFATE 30 MG ORAL TABLET 1 pill by mouth twice daily, for pain 2013 MORPHINE SULFATE 30394530800 No Longer Active Mason Loredo MD Active ACYCLOVIR 400 MG ORAL TABLET 1 pill three times daily x 5 days, for cold sore outbreak ACYCLOVIR 54986316768 No Longer Active Alina Castaneda MD PhD Active PENICILLIN V POTASSIUM 500 MG ORAL TABLET 1 pill by mouth three times daily PENICILLIN V POTASSIUM 92333376712 No Longer Active Alina Castaneda MD PhD Active UROXATRAL 10 MG ORAL TABLET EXTENDED RELEASE 24 HOUR Take 1 tablet by mouth daily ALFUZOSIN HCL 38692367767 No Longer Active Alina Castaneda MD PhD Active THIOTHIXENE 5 MG ORAL CAPSULE by mouth twice a day THIOTHIXENE 77368844151 No Longer Active Alina Castaneda MD PhD Active ZYPREXA 7.5 MG ORAL TABLET 1 at HS OLANZAPINE 65989263687 No Longer Active Alina Castaneda MD PhD Active DETROL LA 4 MG ORAL CAPSULE EXTENDED RELEASE 24 HOUR Take 1 tablet by mouth daily TOLTERODINE TARTRATE 80369995631 No Longer Active Alina Castaneda MD PhD Active TERESE CONTOUR TEST IN VITRO STRIP monitor blood sugars 3x/day GLUCOSE BLOOD 65470633626 No Longer Active Alina Castaneda MD PhD Active EQL TRUETEST TEST IN VITRO STRIP Test blood sugar TID GLUCOSE BLOOD 27174378010 No Longer Active Alina Castaneda MD PhD Active FLUTICASONE PROPIONATE 50 MCG/ACT NASAL SUSPENSION 2 sprays each nostril qDay x 30 days FLUTICASONE PROPIONATE 26741722664 No Longer Active Alina Castaneda MD PhD Active IBUPROFEN 200 MG ORAL TABLET 1 Q 6 hr. PRN IBUPROFEN 50559440521 No Longer Active Alina Castaneda MD PhD Active NIACIN ER 500 MG ORAL TABLET EXTENDED RELEASE 4 qHS (for triglycerides) 01/13 NIACIN 26675148162 No Longer Active Alina Castaneda MD PhD Active SAPHRIS 5 MG SUBLINGUAL TABLET SUBLINGUAL by mouth twice a day ASENAPINE MALEATE 41152938780 No Longer Active Maljohn Mackenzieglestela MARROQUIN Active ACETAMINOPHEN 500 MG ORAL TABLET 2 Q 6 hr. PRN ACETAMINOPHEN 56267692056 No Longer Active Maljohn Ziglari HYDROSTATIC TUBING TESTER Active ORPHENADRINE CITRATE ER 100 MG ORAL TABLET EXTENDED RELEASE 12 HOUR 1 every 12 hr. as needed ORPHENADRINE CITRATE 43639873927 No Longer Active Alina Castaneda MD PhD Active NIACIN ER 500 MG ORAL TABLET EXTENDED RELEASE 2 qHS NIACIN 17034382889 No Longer Active Alina Castaneda MD PhD Active AMOXICILLIN 500 MG ORAL CAPSULE 2 po BID x 10 days AMOXICILLIN 53372251619 No Longer Active Alina Castaneda MD PhD Active HYDROCODONE-ACETAMINOPHEN 7.5-325 MG ORAL TABLET 1 four times a day as needed for pain HYDROCODONE-ACETAMINOPHEN 94753656310 No Longer Active Alina Castaneda MD PhD Active DOXEPIN HCL 10 MG ORAL CAPSULE Take 1 tablet by mouth daily DOXEPIN HCL 02456450389 No Longer Active Salina Ervinford [facility] Active NAVANE 10 MG CAPS 1/2 tablet twice a day THIOTHIXENE No Longer Active Salina Ervinford A Active CYCLOBENZAPRINE HCL 10 MG ORAL TABLET 1/2 tablet by mouth every 8 hours as needed for muscle spasms CYCLOBENZAPRINE HCL 99742564542 No Longer Active Alina Castaneda MD PhD Active BACTROBAN 2 % EXTERNAL CREAM apply to ear and nose twice daily MUPIROCIN CALCIUM 60547913833 No Longer Active Alina Castaneda MD PhD Active HYDROCODONE-ACETAMINOPHEN 5-325 MG ORAL TABLET take one tablet by mouth every four hours as needed for pain HYDROCODONE-ACETAMINOPHEN 23229559594 No Longer Active Alina Castaneda MD PhD Active ZYPREXA 5 MG ORAL TABLET take one tablet by mouth every evening OLANZAPINE 45512699263 No Longer Active Alina Castaneda MD PhD Active ALBUTEROL SULFATE (2.5 MG/3ML) 0.083% INHALATION NEBULIZATION SOLUTION one vial per nebulizer TID and PRN cough/soa ALBUTEROL SULFATE 28753316278 No Longer Active Alina Castaneda MD PhD Active GUAIFENESIN ER 600 MG ORAL TABLET EXTENDED RELEASE 12 HOUR 1 tablet by mouth twice daily if needed for cough GUAIFENESIN 31248767107 No Longer Active Marvel MARROQUIN Active AZITHROMYCIN 500 MG INTRAVENOUS SOLUTION RECONSTITUTED 1 po q day AZITHROMYCIN 12224492192 No Longer Active Alina Castaneda MD PhD Active PROMETHAZINE-CODEINE 6.25-10 MG/5ML ORAL SYRUP 1 tsp po q 6 hours prn cough PROMETHAZINE-CODEINE 31423987359 No Longer Active Alina Castaneda MD PhD Active CEFDINIR 300 MG ORAL CAPSULE by mouth twice a day CEFDINIR 98300670996 No Longer Active Alina Castaneda MD PhD Active METFORMIN HCL ER 500 MG ORAL TABLET EXTENDED RELEASE 24 HOUR Take 3 tablets by mouth everyday METFORMIN HCL 36694104156 No Longer Active Alina Castaneda MD PhD Active LEVEMIR 100 UNIT/ML SUBCUTANEOUS SOLUTION 90 units SQ qHS INSULIN DETEMIR 19004862009 No Longer Active Marvel MARROQUIN Active TOPROL XL 100 MG ORAL TABLET EXTENDED RELEASE 24 HOUR 1 @ HS METOPROLOL SUCCINATE 81839765765 No Longer Active Marvel MARROQUIN Active ALLOPURINOL 300 MG ORAL TABLET Take one by mouth daily ALLOPURINOL 75587218518 Active Mima Erazo APRN Active ZYPREXA 10 MG ORAL TABLET Take one by mouth daily OLANZAPINE 11500706069 No Longer Active Alina Castaneda MD PhD Active NOVOLOG 100 UNIT/ML SUBCUTANEOUS SOLUTION 40 units with every meal INSULIN ASPART 74148720750 No Longer Active Alina Castaneda MD PhD Active VERAPAMIL HCL ER 120 MG ORAL TABLET EXTENDED RELEASE 1 qPM 09/08 VERAPAMIL HCL 40220085140 No Longer Active Salina ROJAS Active ZYPREXA 15 MG ORAL TABLET Take 1 tablet by mouth daily OLANZAPINE 21587564088 No Longer Active Marvel MARROQUIN Active ALBUTEROL SULFATE (2.5 MG/3ML) 0.083% INHALATION NEBULIZATION SOLUTION 1 neb tid and prn cough ALBUTEROL SULFATE 42562836218 No Longer Active Alina Castaneda MD PhD Active LANTUS 100 UNIT/ML SUBCUTANEOUS SOLUTION 60 units sq q hs INSULIN GLARGINE 73007361209 No Longer Active CRYSTAL Suarez Active ALBUTEROL SULFATE (2.5 MG/3ML) 0.083% INHALATION NEBULIZATION SOLUTION 1 neb tid and prn cough ALBUTEROL SULFATE (2.5 MG/3ML) 0.083% INHALATION NEBULIZATION SOLUTION 612924 ALBUTEROL SULFATE Inactive ZYPREXA 15 MG ORAL TABLET Take 1 tablet by mouth daily ZYPREXA 15 MG ORAL TABLET 782891 OLANZAPINE Inactive VERAPAMIL HCL ER 120 MG ORAL TABLET EXTENDED RELEASE 1 qPM 09/08 VERAPAMIL HCL ER 120 MG ORAL TABLET EXTENDED RELEASE VERAPAMIL HCL Inactive ZYPREXA 10 MG ORAL TABLET Take one by mouth daily ZYPREXA 10 MG ORAL TABLET 343371 OLANZAPINE Inactive TOPROL XL 100 MG ORAL TABLET EXTENDED RELEASE 24 HOUR 1 @ HS TOPROL XL 100 MG ORAL TABLET EXTENDED RELEASE 24 HOUR METOPROLOL SUCCINATE Inactive LEVEMIR 100 UNIT/ML SUBCUTANEOUS SOLUTION 90 units SQ qHS LEVEMIR 100 UNIT/ML SUBCUTANEOUS SOLUTION INSULIN DETEMIR Inactive PROMETHAZINE-CODEINE 6.25-10 MG/5ML ORAL SYRUP 1 tsp po q 6 hours prn cough PROMETHAZINE-CODEINE 6.25-10 MG/5ML ORAL SYRUP 564522 PROMETHAZINE-CODEINE Inactive GUAIFENESIN ER 600 MG ORAL TABLET EXTENDED RELEASE 12 HOUR 1 tablet by mouth twice daily if needed for cough GUAIFENESIN ER 600 MG ORAL TABLET EXTENDED RELEASE 12 HOUR GUAIFENESIN Inactive ALBUTEROL SULFATE (2.5 MG/3ML) 0.083% INHALATION NEBULIZATION SOLUTION one vial per nebulizer TID and PRN cough/soa ALBUTEROL SULFATE (2.5 MG/3ML) 0.083% INHALATION NEBULIZATION SOLUTION 367571 ALBUTEROL SULFATE Inactive ZYPREXA 5 MG ORAL TABLET take one tablet by mouth every evening ZYPREXA 5 MG ORAL TABLET 290854 OLANZAPINE Inactive HYDROCODONE-ACETAMINOPHEN 5-325 MG ORAL TABLET take one tablet by mouth every four hours as needed for pain HYDROCODONE-ACETAMINOPHEN 5-325 MG ORAL TABLET 493434 HYDROCODONE-ACETAMINOPHEN Inactive BACTROBAN 2 % EXTERNAL CREAM apply to ear and nose twice daily BACTROBAN 2 % EXTERNAL CREAM 206212 MUPIROCIN CALCIUM Inactive CYCLOBENZAPRINE HCL 10 MG ORAL TABLET 1/2 tablet by mouth every 8 hours as needed for muscle spasms CYCLOBENZAPRINE HCL 10 MG ORAL TABLET 996160 CYCLOBENZAPRINE HCL Inactive NAVANE 10 MG CAPS 1/2 tablet twice a day NAVANE 10 MG CAPS THIOTHIXENE Inactive DOXEPIN HCL 10 MG ORAL CAPSULE Take 1 tablet by mouth daily DOXEPIN HCL 10 MG ORAL CAPSULE 1672566 DOXEPIN HCL Inactive HYDROCODONE-ACETAMINOPHEN 7.5-325 MG ORAL TABLET 1 four times a day as needed for pain HYDROCODONE-ACETAMINOPHEN 7.5-325 MG ORAL TABLET 117519 HYDROCODONE-ACETAMINOPHEN Inactive NIACIN ER 500 MG ORAL [...] hr. PRN ACETAMINOPHEN 500 MG ORAL TABLET 965281 ACETAMINOPHEN Inactive SAPHRIS 5 MG SUBLINGUAL TABLET SUBLINGUAL by mouth twice a day SAPHRIS 5 MG SUBLINGUAL TABLET SUBLINGUAL ASENAPINE MALEATE Inactive NIACIN ER 500 MG ORAL TABLET EXTENDED RELEASE 4 qHS (for triglycerides) 01/13 NIACIN ER 500 MG ORAL TABLET EXTENDED RELEASE NIACIN Inactive IBUPROFEN 200 MG ORAL TABLET 1 Q 6 hr. PRN IBUPROFEN 200 MG ORAL TABLET 604287 IBUPROFEN Inactive FLUTICASONE PROPIONATE 50 MCG/ACT NASAL SUSPENSION 2 sprays each nostril qDay x 30 days FLUTICASONE PROPIONATE 50 MCG/ACT NASAL SUSPENSION 1185626 FLUTICASONE PROPIONATE Inactive EQL TRUETEST TEST IN VITRO STRIP Test blood sugar TID EQL TRUETEST TEST IN VITRO STRIP GLUCOSE BLOOD Inactive ETRESE CONTOUR TEST IN VITRO STRIP monitor blood sugars 3x/day TERESE CONTOUR TEST IN VITRO STRIP GLUCOSE BLOOD Inactive DETROL LA 4 MG ORAL CAPSULE EXTENDED RELEASE 24 HOUR Take 1 tablet by mouth daily DETROL LA 4 MG ORAL CAPSULE EXTENDED RELEASE 24 HOUR TOLTERODINE TARTRATE Inactive ZYPREXA 7.5 MG ORAL TABLET 1 at HS ZYPREXA 7.5 MG ORAL TABLET 649260 OLANZAPINE Inactive THIOTHIXENE 5 MG ORAL CAPSULE by mouth twice a day THIOTHIXENE 5 MG ORAL CAPSULE 768144 THIOTHIXENE Inactive UROXATRAL 10 MG ORAL TABLET EXTENDED RELEASE 24 HOUR Take 1 tablet by mouth daily UROXATRAL 10 MG ORAL TABLET EXTENDED RELEASE 24 HOUR ALFUZOSIN HCL Inactive ACYCLOVIR 400 MG ORAL TABLET 1 pill three times daily x 5 days, for cold sore outbreak ACYCLOVIR 400 MG ORAL TABLET 510921 ACYCLOVIR Inactive TRUETEST TEST IN VITRO STRIP check sugars 4x/day TRUETEST TEST IN VITRO STRIP GLUCOSE BLOOD Inactive HUMALOG 100 UNIT/ML SUBCUTANEOUS SOLUTION Take 20 units with breakfast, 10u with lunch and suppetr. HUMALOG 100 UNIT/ML SUBCUTANEOUS SOLUTION INSULIN LISPRO (HUMAN) Inactive CYCLOBENZAPRINE HCL 10 MG ORAL TABLET 1 tablet by mouth three times daily, scheduled CYCLOBENZAPRINE HCL 10 MG ORAL TABLET 286439 CYCLOBENZAPRINE HCL Inactive ACCU-CHEK ROSA IN VITRO STRIP use strips with device to check blood sugars 3 times daily ACCU-CHEK ROSA IN VITRO STRIP GLUCOSE BLOOD Inactive ACCU-CHEK ROSA DEVICE Use device to check blood sugars ACCU-CHEK ROSA DEVICE BLOOD GLUCOSE MONITORING SUPPL Inactive FLUVOXAMINE MALEATE 100 MG ORAL TABLET Take 1/2 tab at noon 03/04 FLUVOXAMINE MALEATE 100 MG ORAL TABLET 521302 FLUVOXAMINE MALEATE Inactive FLUVOXAMINE MALEATE 100 MG ORAL TABLET Take one (1) tablet by mouth am, 1/2 at noon FLUVOXAMINE MALEATE 100 MG ORAL TABLET 938962 FLUVOXAMINE MALEATE Inactive BACTROBAN 2 % EXTERNAL CREAM Apply to affected area BID for up to 10 days BACTROBAN 2 % EXTERNAL CREAM 304135 MUPIROCIN CALCIUM Inactive NOVOFINE 32G X 6 MM use one four times per day NOVOFINE 32G X 6 MM INSULIN PEN NEEDLE Inactive TRAZODONE HCL 100 MG ORAL TABLET 1 tab by mouth for sleep TRAZODONE HCL 100 MG ORAL TABLET 078070 TRAZODONE HCL Inactive LOVAZA 1 GM ORAL CAPSULE 4 daily (for triglycerides) LOVAZA 1 GM ORAL CAPSULE 335900 [id number] ETHYL ESTERS Inactive METFORMIN HCL ER 500 [...] bladder TOLTERODINE TARTRATE 2 MG ORAL TABLET 433375 TOLTERODINE TARTRATE Inactive COLACE 100 MG ORAL CAPSULE 1 pill by mouth twice daily, for constipation 2014 COLACE 100 MG ORAL CAPSULE 1306199 DOCUSATE SODIUM Inactive LOMOTIL 2.5-0.025 MG ORAL TABLET take 1-2 tabs PO after each stool, no more than 8 in 24 hours LOMOTIL 2.5-0.025 MG ORAL TABLET 7632969 DIPHENOXYLATE-ATROPINE Inactive ZOFRAN 4 MG ORAL TABLET 1 po q4hr PRN Nausea ZOFRAN 4 MG ORAL TABLET 408425 ONDANSETRON HCL Inactive HYDROCODONE-ACETAMINOPHEN 5-325 MG ORAL TABLET 2 tabs by mouth three times daily for pain HYDROCODONE-ACETAMINOPHEN 5-325 MG ORAL TABLET 249146 HYDROCODONE-ACETAMINOPHEN Inactive ZOLPIDEM TARTRATE 10 MG ORAL TABLET take at bedtime ZOLPIDEM TARTRATE 10 MG ORAL TABLET 505169 ZOLPIDEM TARTRATE Inactive LISINOPRIL 20 MG ORAL TABLET 1 BID LISINOPRIL 20 MG ORAL TABLET 287932 LISINOPRIL Inactive TRAVATAN Z 0.004 % OPHTHALMIC SOLUTION 1 gtt each eye daily TRAVATAN Z 0.004 % OPHTHALMIC SOLUTION TRAVOPROST Inactive LATUDA 60 MG ORAL TABLET Take one by mouth daily LATUDA 60 MG ORAL TABLET LURASIDONE HCL Inactive FLUVOXAMINE MALEATE 50 MG ORAL TABLET 1 tab by mouth daily 04/01 FLUVOXAMINE MALEATE 50 MG ORAL TABLET 253230 FLUVOXAMINE MALEATE Inactive LEVEMIR FLEXTOUCH 100 UNIT/ML [...] 30G 3 a day TRUEPLUS LANCETS 30G 81446283159 LANCETS Inactive AMITIZA 24 MCG ORAL CAPSULE [...] noon FLUVOXAMINE MALEATE 100 MG ORAL TABLET 659047 FLUVOXAMINE MALEATE Inactive FLONASE ALLERGY RELIEF 50 MCG/ACT NASAL SUSPENSION One spray each nostril BID x 1 week then daily FLONASE ALLERGY RELIEF 50 MCG/ACT NASAL SUSPENSION 9980911 FLUTICASONE PROPIONATE Inactive IMODIUM A-D 2 MG ORAL TABLET 1 tab QID as needed IMODIUM A-D 2 MG ORAL TABLET 040268 LOPERAMIDE HCL Inactive MYLANTA GAS RELIEF MAXIMUM STR 125 MG ORAL CAPSULE 30cc every 4 hours prn MYLANTA GAS RELIEF MAXIMUM STR 125 MG ORAL CAPSULE SIMETHICONE Inactive TRUEPLUS LANCETS 30G 3x a day TRUEPLUS LANCETS 30G 12258221860 LANCETS Inactive TRUE METRIX BLOOD GLUCOSE TEST [...] headaches TRAZODONE HCL 100 MG ORAL TABLET 419581 TRAZODONE HCL Inactive TYLENOL 8 HOUR 650 MG ORAL TABLET EXTENDED RELEASE 1 tab QID prn TYLENOL 8 HOUR 650 MG ORAL TABLET EXTENDED RELEASE ACETAMINOPHEN Inactive [facility] LUBRICANT EYE DROPS 0.4-0.3 % OPHTHALMIC SOLUTION [facility] LUBRICANT EYE DROPS 0.4-0.3 % OPHTHALMIC SOLUTION POLYETHYL GLYCOL- PROPYL GLYCOL Inactive CEFDINIR 300 MG ORAL CAPSULE by mouth twice a day CEFDINIR 300 MG ORAL CAPSULE 279053 CEFDINIR Inactive AZITHROMYCIN 500 MG INTRAVENOUS SOLUTION RECONSTITUTED 1 po q day AZITHROMYCIN 500 MG INTRAVENOUS SOLUTION RECONSTITUTED 55491974451 AZITHROMYCIN Inactive AMOXICILLIN 500 MG ORAL CAPSULE 2 po BID x 10 days AMOXICILLIN 500 MG ORAL CAPSULE 324410 AMOXICILLIN Inactive PENICILLIN V POTASSIUM 500 MG ORAL TABLET 1 pill by mouth three times daily PENICILLIN V POTASSIUM 500 MG ORAL TABLET 163465 PENICILLIN V POTASSIUM Inactive KEFLEX 500 MG ORAL CAPSULE 1 po BID x 7 days KEFLEX 500 MG ORAL CAPSULE 555021 CEPHALEXIN Inactive Immunizations Vaccine Administration Date Value [...] Fluvirin, Fluarix, Agriflu(>=18 yo)) Fluzone (>3 yrs.) [[id number]] Influenza, seasonal, injectable pneumococcal immunization administered Pneumovax [...] ... - Chemistry sodium, serum 135 mmol/L 180-778 8932/08/22 carbon dioxide, venous blood 28.4 mmol/L 21.0-32.0 [...] mg/g {creat} 0-29 cholesterol, serum 263 mg/dL 411-482 8718/08/22 triglyceride, serum, fasting 1312 mg/dL 30-200 HDL [...] ordered Encounters Code Encounter Date Provider Facility CPT-93460 Level 3 Est. Patient 09:12:14 MAINTENANCE ELECTRICIAN Mima Yoliudmila [facility] CPT-33328 Level 3 Est. Patient 16:52:51 CDT Vanessa Hickey MD [facility]-93923 Level 3 Est. Patient 17:40:16 CDT Mima Erazo [facility] CPT-31201 Level 3 Est. Patient 14:34:52 CDT Vanessa Hickey MD [facility]-06775 Level 3 Est. Patient 16:27:51 CDT Mima Erazo [facility] CPT-15156 Level 3 Est. Patient 14:39:00 MAINTENANCE ELECTRICIAN Vanessa Hickey MD [facility]-87819 Level 2 Est. Patient 18:43:34 CDT Mima Erazo [facility] CPT-12156 Level 3 Est. Patient 16:22:09 CDT Cherelle Avila [facility] CPT-48378 Level 4 Est. Patient 17:55:14 CDT Mima Erazo [facility] CPT-71354 Level 2 Est. Patient 17:13:21 CDT Alina Castaneda MD [facility] CPT-43736 Level 3 Est. Patient 14:46:15 CDT Vanessa Hickey MD [facility]-43087 Level 3 Est. Patient 09:34:56 CDT Alina Castaneda MD [facility]-92299 Level 3 Est. Patient 21:40:19 CDT Mima Jeffliudmila [facility] CPT-74386 Level 3 Est. Patient 09:26:40 CDT Marvel Charles [facility] CPT-92412 Level 3 Est. Patient 12:36:43 CDT Vanessa Hickey MD [facility]-02954 Level 3 Est. Patient 12:57:49 CDT Vanessa Hickey MD [facility]-14851 Level 3 Est. Patient 00:28:25 CDT Alina Castaneda MD [facility]19351 Level 2 Est. Patient 12:52:14 CDT Alina Castaneda MD [facility]84371 Level 3 Est. Patient 11:51:18 MAINTENANCE ELECTRICIAN Alina Castaneda MD [facility]-46649 Level 3 Est. Patient 10:09:22 MAINTENANCE ELECTRICIAN Alina Castaneda MD [facility]39529 Level 3 Est. Patient 14:36:26 MAINTENANCE ELECTRICIAN Marvel Charles [facility]-45117 Level 3 Est. Patient 13:34:47 MAINTENANCE ELECTRICIAN Alina Castaneda MD [facility]57463 Level 3 Est. Patient 19:52:08 MAINTENANCE ELECTRICIAN Alina Castaneda MD [facility]-77634 Level 3 Est. Patient 10:01:51 MAINTENANCE ELECTRICIAN Marvel Charles [facility]-76567 Level 3 Est. Patient 21:54:06 CDT Vanessa Hickey MD [facility]-75602 Level 3 Est. Patient 08:54:46 CDT Alina Castaneda MD [facility]-51418 Level 3 Est. Patient 09:32:11 CDT Marvel Charles [facility]-27340 Level 3 Est. Patient 12:02:49 CDT Alina Castaneda MD [facility]60197 Level 3 Est. Patient 19:17:33 CDT Alina Castaneda MD [facility]16090 Level 3 Est. Patient 13:19:10 CDT Marvel [facility]-69028 Level 3 Est. Patient 08:20:05 CDT Alina Castaneda MD [facility]35897 Level 3 Est. Patient 15:17:18 CDT Alina Castaneda MD [facility]37431 Level 3 Est. Patient 14:25:36 MAINTENANCE ELECTRICIAN Marvel [facility]-82561 Level 3 Est. Patient 10:09:15 MAINTENANCE ELECTRICIAN Marvel Charles [facility]-16087 Level 3 Est. Patient 21:28:43 CDT Alina Castaneda MD [facility]38207 Level 3 Est. Patient 15:20:11 CDT [facility]49747 Level 4 Est. Patient 19:08:12 CDT Alina Castaneda MD [facility]-11303 Level 3 Est. Patient 15:06:39 CDT Marvel [facility]-42989 Level 4 Est. Patient 17:48:15 CDT Alina Castaneda MD [facility]-03551 Level 3 Est. Patient 14:53:49 CDT Alina Castaneda MD [facility]-64256 Level 3 Est. Patient 09:35:16 CDT Alina Castaneda MD [facility]-82342 Level 3 Est. Patient 12:23:22 CDT Alina Castaneda MD [facility]47306 Level 3 Est. Patient 16:19:15 CDT Alina Castaneda MD [facility]72270 Level 3 Est. Patient 21:39:56 MAINTENANCE ELECTRICIAN Alina Castaneda MD [facility]-40888 Level 4 Est. Patient 14:12:56 MAINTENANCE ELECTRICIAN Alina Castaneda MD [facility]-35663 Level 2 Est. Patient 15:34:57 MAINTENANCE ELECTRICIAN Alina Castaneda MD [facility]59353 Level 3 Est. Patient 12:17:04 MAINTENANCE ELECTRICIAN Alina Castaneda MD [facility]85610 Level 3 Est. Patient 09:18:18 MAINTENANCE ELECTRICIAN Marvel Charles [facility]-38272 Level 2 Est. Patient 21:50:24 CDT Alian Castaneda MD [facility]56683 Level 3 Est. Patient 09:17:28 CDT Marvel Charles [facility]-10100 Level 4 Est. Patient 18:54:02 CDT Alina Castaneda MD [facility]-42492 Level 3 Est. Patient 10:47:10 CDT Alina Castaneda MD [facility]-96152 Level 3 Est. Patient 09:22:20 CDT Marvel Charles [facility]-78313 Level 3 Est. Patient 16:39:43 CDT Marvel Charles [facility]-47514 Level 3 Est. Patient 16:05:16 CDT Alina Castaneda MD [facility]-57627 Level 3 Est. Patient 00:29:15 CDT Alina Castaneda MD [facility]28378 Level 3 Est. Patient 10:49:22 MAINTENANCE ELECTRICIAN Marvel Charles [facility]-48695 Level 3 Est. Patient 21:30:19 MAINTENANCE ELECTRICIAN Alina Castaneda MD PhD [facility] CPT-19285 Level 4 Est. Patient 17:04:11 MAINTENANCE ELECTRICIAN [place] Charles [facility] CPT-50069 Level 3 Est. Patient 15:34:11 MAINTENANCE ELECTRICIAN [facility] CPT-36733 Level 2 Est. Patient 12:51:58 MAINTENANCE ELECTRICIAN Alina Castaneda MD PhD [facility] CPT-57835 Level 3 Est. Patient 13:20:01 MAINTENANCE ELECTRICIAN Alina Castaneda MD PhD [facility] CPT-89175 Level 3 Est. Patient 09:23:35 CDT Alina Castaneda MD PhD [facility] Procedures Code Procedure Name Date Entry Date Standard Description CPT-TCMM Transitional Care Mgmt-Moderate 12:32:19 CDT CPT-58163 Level 2 Retirement 09:01:11 CDT CPT-26269 HGBA1C - LAB USE ONLY 09:30:27 MAINTENANCE ELECTRICIAN CPT-15210 BMP - LAB USE ONLY 09:30:27 MAINTENANCE ELECTRICIAN CPT-93628 Venipuncture Draw Fee 09:30:26 MAINTENANCE ELECTRICIAN CPT-TCMM Transitional Care Mgmt-Moderate 10:25:31 CDT CPT-63910 Bladder Scan 14:34:53 CDT CPT-70506 Bladder Scan 14:39:01 MAINTENANCE ELECTRICIAN CPT-TCMM Transitional Care Mgmt-Moderate 10:30:19 MAINTENANCE ELECTRICIAN CPT-75449 Bladder Scan 12:36:44 CDT CPT-18845 Bladder Scan 21:54:06 CDT CPT-G0008 Administration of Influenza Virus Vaccine 13:05:26 CDT CPT-72182 Fluzone Quadrivalent Intramuscular Suspension 0.5 ML 13: 05:26 CDT CPT-04501 Administration single or combination vaccine inc oral 11 :49:51 CDT CPT-71083 Pneumovax 11:49:51 CDT CPT-24368 Ribs unilateral 2V 12:37:22 MAINTENANCE ELECTRICIAN CPT-36676 Chest 2V Frontal and Lat 17:15:26 CDT CPT-99532 Abx/Therapy Injection 18:54:02 CDT CPT-J0696 Rocephin 1000 mg (Ceftriaxone) 16:00:32 CDT CPT-75284 Chest 2V Frontal and Lat 15:26:45 CDT CPT-40221 Chest 2V Frontal and Lat 10:23:27 CDT CPT-42612 Venipuncture Draw Fee 10:11:00 CDT CPT-18866 Administration single or combination vaccine inc oral 11 :56:38 CDT CPT-27540 Influenza split virus > age 3 11:56:38 CDT CPT-00507 Venipuncture Draw Fee 08:49:54 MAINTENANCE ELECTRICIAN CPT-88576 EKG Trac and Interp 17:54:19 MAINTENANCE ELECTRICIAN
--- OUTSIDE RECORDS SUMMARY | 2018-07-02 12:59 | XMS REPORT | Clinical Summary ---
Author Author Admin, TERELL Organization [facility] Address Unknown Phone Unavailable Allergies, Adverse Reactions, [...] RELATED TO HIGH-RISK SEXUAL BEHAVIOR V69.2 Resolved lAina Castaneda MD PhD Unspecified occupant of heavy [...] mellitus, type II 250.00 Active Marvel Thurstonari VACUUM FORM OPERATOR Diabetes mellitus without mention of complication, type [...] Take 1 tablet by mouth daily FENOFIBRATE 71936105491 Active Mya Ledezma MA Active SEROQUEL 50 MG ORAL TABLET Take Give 1 tablet by mouth at bedtime QUETIAPINE FUMARATE 76794086920 Active Mason Loredo MD Active OCEAN NASAL SPRAY SOLUTION 2 sprays in both nostrils every 8 hours as needed for dry mucous membranes SALINE SOLN 91459577604 Active Mason Loredo MD Active BETHANECHOL CHLORIDE 25 MG ORAL TABLET Take 1 tablet mouth four times a day BETHANECHOL CHLORIDE 01608500311 Active Mason Loredo MD Active [facility] LUBRICANT E[facility] DROPS 0.4-0.3 % OPHTHALMIC SOLUTION POLYETHYL GLYCOL-PROPYL GLYCOL 61259806797 No Longer Active Mason Loredo MD Active TYLENOL 8 HOUR 650 MG ORAL TABLET EXTENDED RELEASE 1 tab QID prn ACETAMINOPHEN 89979530136 No Longer Active Mason Loredo MD Active TOPAMAX 25 MG ORAL TABLET 1 tab BID PRN TOPIRAMATE 36436187778 Active Mason Loredo MD Active TIMOPTIC OCUDOSE 0.5 % OPHTHALMIC SOLUTION instill one drop into both eyes q12H TIMOLOL MALEATE 05882593036 Active Mason Loredo MD Active TRAZODONE HCL 100 MG ORAL TABLET 1 every night to prevent headaches TRAZODONE HCL 42146262817 No Longer Active Mason Loredo MD Active TRAVATAN Z 0.004 % OPHTHALMIC SOLUTION 1 drop each eye daily 2017 TRAVOPROST 60448431084 No Longer Active Mason Loredo MD Active LATUDA 60 MG ORAL TABLET 1 tab daily LURASIDONE HCL 94503227755 No Longer Active Mason Loredo MD Active MORPHINE SULFATE ER 30 MG ORAL TABLET EXTENDED RELEASE Take one capsule BID MORPHINE SULFATE 56376607940 No Longer Active Mason Loredo MD Active TRUE METRIX BLOOD GLUCOSE TEST IN VITRO STRIP Check blood sugars 3x/day. 2015 GLUCOSE BLOOD 20459881586 No Longer Active Mason Loredo MD Active TRUEPLUS LANCETS 30G 3x a day LANCETS 22773598144 No Longer Active Mason Loredo MD Active MYLANTA GAS RELIEF MAXIMUM STR 125 MG ORAL CAPSULE 30cc every 4 hours prn SIMETHICONE 39076872221 No Longer Active Mason Loredo MD Active IMODIUM A-D 2 MG ORAL TABLET 1 tab QID as needed LOPERAMIDE HCL 56413211691 No Longer Active Mason Loredo MD Active FLONASE ALLERGY RELIEF 50 MCG/ACT NASAL SUSPENSION One spray each nostril BID x 1 week then daily FLUTICASONE PROPIONATE 62353400113 No Longer Active Mason Loredo MD Active FLUVOXAMINE MALEATE 100 MG ORAL TABLET take one tab every AM et HS, and take 1 /2 tab at noon FLUVOXAMINE MALEATE 16177971516 No Longer Active Mason Loredo MD Active BD PEN NEEDLE MINI U/F 31G X 5 MM 4 a day INSULIN PEN NEEDLE 78190788849 No Longer Active Mason Loredo MD Active AMITIZA 24 MCG ORAL CAPSULE Take one capsule BID for constipation LUBIPROSTONE 70067491371 No Longer Active Mason Loredo MD Active TRUEPLUS LANCETS 30G 3 a day LANCETS 55610598348 No Longer Active Mason Loredo MD Active CORICIDIN HBP CONGESTION/COUGH 10-200 MG ORAL CAPSULE Take as directed on box as needed for cold/flu symptoms DEXTROMETHORPHAN- GUAIFENESIN 43994419481 No Longer Active Mason Loredo MD Active OMEGA-3 300 MG ORAL CAPSULE 4 caps by mouth daily OMEGA-3 FATTY ACIDS 45120185655 No Longer Active Mason Loredo MD Active HUMALOG KWIKPEN 100 UNIT/ML SUBCUTANEOUS SOLUTION PEN-INJECTOR sliding scale if needed INSULIN LISPRO (HUMAN) 10800183721 No Longer Active Mason Loredo MD Active TRUETEST TEST IN VITRO STRIP check blood sugars 3x/day GLUCOSE BLOOD 06233810045 No Longer Active Mason Loredo MD Active ALFUZOSIN HCL ER 10 MG ORAL TABLET EXTENDED RELEASE 24 HOUR 1 tablet daily ALFUZOSIN HCL 33482867665 No Longer Active Mason Loredo MD Active BD INSULIN SYRINGE 28G X 1/2" 1 ML 1 four times per day INSULIN SYRINGE-NEEDLE U-100 76346605032 No Longer Active Mason Loredo MD Active LEVEMIR FLEXTOUCH 100 UNIT/ML SUBCUTANEOUS SOLUTION PEN-INJECTOR 60 units SQ each evening, for diabetes INSULIN DETEMIR 51413621565 No Longer Active Mason Loredo MD Active METFORMIN HCL ER (MOD) 500 MG ORAL TABLET EXTENDED RELEASE 24 HOUR give two tabs PO BID METFORMIN HCL 75458864515 Active Mason Loredo MD Active LACTULOSE 20 GM/30ML ORAL SOLUTION give 30 Ml PO BID PRN LACTULOSE 07148530909 Active Mason Loredo MD Active COLACE 100 MG ORAL CAPSULE 1 tab BID PRN DOCUSATE SODIUM 71032576724 Active Mason Loredo MD Active TAMSULOSIN HCL 0.4 MG ORAL CAPSULE give 2 capsules PO each evening TAMSULOSIN HCL 55924564914 Active Mason Loredo MD Active [facility] MELATONIN 3 MG ORAL TABLET give 1 tab by mouth at HS MELATONIN 16555638214 Active Mason Loredo MD Active LATANOPROST 0.005 % OPHTHALMIC SOLUTION instill 1 drop in both eyes at bed time LATANOPROST 79332999138 Active Mason Loredo MD Active AMARYL 2 MG ORAL TABLET give 2.5 tabs PO daily GLIMEPIRIDE 07136768347 Active Mason Loredo MD Active MIRALAX ORAL POWDER 17g by mouth q12h, for constipation POLYETHYLENE GLYCOL 3350 83625930913 Active Mason Loredo MD Active IBUPROFEN 400 MG ORAL TABLET 1 tab Q6H PRN IBUPROFEN 33209771020 Active Mason Loredo MD Active EFFEXOR XR 37.5 MG ORAL CAPSULE EXTENDED RELEASE 24 HOUR Take one by mouth daily VENLAFAXINE HCL 98002078781 Active Mima Erazo APRN Active FLUVOXAMINE MALEATE 50 MG ORAL TABLET 1 tab by mouth daily 04/01 FLUVOXAMINE MALEATE 10375828680 No Longer Active iMma Erazo APRN Active TRUE METRIX METER w/Device KIT Check blood sugars 3x/day BLOOD GLUCOSE MONITORING SUPPL 72451466311 Active Marvel Charles VACUUM FORM OPERATOR Active VITAMIN D 2000 UNIT ORAL CAPSULE Take one by mouth daily CHOLECALCIFEROL 83873284586 Active Mima Erazo AUTO PORTER Active LATUDA 60 MG ORAL TABLET Take one by mouth daily LURASIDONE HCL 80146764043 No Longer Active Mima Erazo APRN Active CLONAZEPAM 1 MG ORAL TABLET 1 pill by mouth three times daily CLONAZEPAM 64559883506 Active Rhett Luther DO Active [facility] MILK OF MAGNESIA 400 MG/5ML ORAL SUSPENSION 30ml by mouth bid prn MAGNESIUM HYDROXIDE 66411555109 Active Mason Loredo MD Active TRAVATAN Z 0.004 % OPHTHALMIC SOLUTION 1 gtt each eye daily TRAVOPROST 05946946471 No Longer Active Mason Loredo MD Active LISINOPRIL 20 MG ORAL TABLET 1 BID LISINOPRIL 68409068731 No Longer Active Mason Loredo MD Active ZOLPIDEM TARTRATE 10 MG ORAL TABLET take at bedtime ZOLPIDEM TARTRATE 63422298809 No Longer Active Mason Loredo MD Active HYDROCODONE-ACETAMINOPHEN 5-325 MG ORAL TABLET 2 tabs by mouth three times daily for pain HYDROCODONE-ACETAMINOPHEN 19090475549 No Longer Active Mason Loredo MD Active ZOFRAN 4 MG ORAL TABLET 1 po q4hr PRN Nausea ONDANSETRON HCL 79178498928 No Longer Active Mason Loredo MD Active LOMOTIL 2.5-0.025 MG ORAL TABLET take 1-2 tabs PO after each stool, no more than 8 in 24 hours DIPHENOXYLATE-ATROPINE 79962484305 No Longer Active Mason Loredo MD Active COLACE 100 MG ORAL CAPSULE 1 pill by mouth twice daily, for constipation 2014 DOCUSATE SODIUM 67837191840 No Longer Active Mima Erazo APRN Active TOLTERODINE TARTRATE 2 MG ORAL TABLET 1 pill twice daily, for bladder TOLTERODINE TARTRATE 34821775722 No Longer Active Vanessa Hickey MD Active AMITIZA 24 MCG ORAL CAPSULE Take one capsule BID for constipation. LUBIPROSTONE 78916887607 No Longer Active Vanessa Hickey MD Active METOPROLOL SUCCINATE ER 100 MG ORAL TABLET EXTENDED RELEASE 24 HOUR 1 by mouth daily for blood pressure METOPROLOL SUCCINATE 51073413104 No Longer Active Grace Nascimento RMA Active METFORMIN HCL ER 500 MG ORAL TABLET EXTENDED RELEASE 24 HOUR Take three tablets by mouth everyday METFORMIN HCL 17078033455 No Longer Active Grace Azam RMA Active LOVAZA 1 GM ORAL CAPSULE 4 daily (for triglycerides) [id number]-3-OEZK ETHYL ESTERS 64056194249 No Longer Active Grace Azam RMA Active TRAZODONE HCL 100 MG ORAL TABLET 1 tab by mouth for sleep TRAZODONE HCL 01699617324 No Longer Active Grace Azam RMA Active NOVOFINE 32G X 6 MM use one four times per day INSULIN PEN NEEDLE 78893590175 No Longer Active Grace Azam RMA Active BACTROBAN 2 % EXTERNAL CREAM Apply to affected area BID for up to 10 days MUPIROCIN CALCIUM 48422747401 No Longer Active Grace Azam RMA Active KEFLEX 500 MG ORAL CAPSULE 1 po BID x 7 days CEPHALEXIN 12597045700 No Longer Active Cherelle Avila APRN Active FLUVOXAMINE MALEATE 100 MG ORAL TABLET Take one (1) tablet by mouth am, 1/2 at noon FLUVOXAMINE MALEATE 60571540848 No Longer Active Mima Erazo ALBAN Active FLUVOXAMINE MALEATE 100 MG ORAL TABLET Take 1/2 tab at noon 03/04 FLUVOXAMINE MALEATE 77213038798 No Longer Active Cherelle Avila ALBAN Active ACCU-CHEK ROSA DEVICE Use device to check blood sugars BLOOD GLUCOSE MONITORING SUPPL 58429909473 No Longer Active Maljohn Mackenzieglari LOPEZ Active ACCU-CHEK ROSA IN VITRO STRIP use strips with device to check blood sugars 3 times daily GLUCOSE BLOOD 34685503666 No Longer Active Maljohn Mackenzieglari VACUUM FORM OPERATOR Active VERAPAMIL HCL ER 180 MG ORAL TABLET EXTENDED RELEASE 1 pill by mouth twice daily, for migraine prevention VERAPAMIL HCL 58596505451 Active Mima Erazo ALBAN Active CYCLOBENZAPRINE HCL 10 MG ORAL TABLET 1 tablet by mouth three times daily, scheduled CYCLOBENZAPRINE HCL 94794557592 No Longer Active Alina Castaneda MD PhD Active HUMALOG 100 UNIT/ML SUBCUTANEOUS SOLUTION Take 20 units with breakfast, 10u with lunch and suppetr. INSULIN LISPRO (HUMAN) 09354520032 No Longer Active Alina Castaneda MD PhD Active TRUETEST TEST IN VITRO STRIP check sugars 4x/day GLUCOSE BLOOD 10706643731 No Longer Active Alina Castaneda MD PhD Active MORPHINE SULFATE 30 MG ORAL TABLET 1 pill by mouth twice daily, for pain 2013 MORPHINE SULFATE 21404959856 No Longer Active Mason Loredo MD Active ACYCLOVIR 400 MG ORAL TABLET 1 pill three times daily x 5 days, for cold sore outbreak ACYCLOVIR 09044397715 No Longer Active Alina Castaneda MD PhD Active PENICILLIN V POTASSIUM 500 MG ORAL TABLET 1 pill by mouth three times daily PENICILLIN V POTASSIUM 89458535396 No Longer Active Alina Castaneda MD PhD Active UROXATRAL 10 MG ORAL TABLET EXTENDED RELEASE 24 HOUR Take 1 tablet by mouth daily ALFUZOSIN HCL 47746140980 No Longer Active Alina Castaneda MD PhD Active THIOTHIXENE 5 MG ORAL CAPSULE by mouth twice a day THIOTHIXENE 49792054040 No Longer Active Alina Castaneda MD PhD Active ZYPREXA 7.5 MG ORAL TABLET 1 at HS OLANZAPINE 06028014821 No Longer Active Alina Castaneda MD PhD Active DETROL LA 4 MG ORAL CAPSULE EXTENDED RELEASE 24 HOUR Take 1 tablet by mouth daily TOLTERODINE TARTRATE 68643088785 No Longer Active Alina Castaneda MD PhD Active TERESE CONTOUR TEST IN VITRO STRIP monitor blood sugars 3x/day GLUCOSE BLOOD 30261449569 No Longer Active Alina Castaneda MD PhD Active EQL TRUETEST TEST IN VITRO STRIP Test blood sugar TID GLUCOSE BLOOD 14755282539 No Longer Active Alina Castaneda MD PhD Active FLUTICASONE PROPIONATE 50 MCG/ACT NASAL SUSPENSION 2 sprays each nostril qDay x 30 days FLUTICASONE PROPIONATE 00340325839 No Longer Active Alina Castaneda MD PhD Active IBUPROFEN 200 MG ORAL TABLET 1 Q 6 hr. PRN IBUPROFEN 46598398243 No Longer Active Alina Castaneda MD PhD Active NIACIN ER 500 MG ORAL TABLET EXTENDED RELEASE 4 qHS (for triglycerides) 01/13 NIACIN 74774043795 No Longer Active Alina Castaneda MD PhD Active SAPHRIS 5 MG SUBLINGUAL TABLET SUBLINGUAL by mouth twice a day ASENAPINE MALEATE 06440801594 No Longer Active Maljohn Mackenzieglestela MARROQUIN Active ACETAMINOPHEN 500 MG ORAL TABLET 2 Q 6 hr. PRN ACETAMINOPHEN 55133582305 No Longer Active Maljohn Ziglari VACUUM FORM OPERATOR Active ORPHENADRINE CITRATE ER 100 MG ORAL TABLET EXTENDED RELEASE 12 HOUR 1 every 12 hr. as needed ORPHENADRINE CITRATE 08668052220 No Longer Active Alina Castaneda MD PhD Active NIACIN ER 500 MG ORAL TABLET EXTENDED RELEASE 2 qHS NIACIN 11930549194 No Longer Active Alina Castaneda MD PhD Active AMOXICILLIN 500 MG ORAL CAPSULE 2 po BID x 10 days AMOXICILLIN 63373678708 No Longer Active Alina Castaneda MD PhD Active HYDROCODONE-ACETAMINOPHEN 7.5-325 MG ORAL TABLET 1 four times a day as needed for pain HYDROCODONE-ACETAMINOPHEN 58182853381 No Longer Active Alina Castaneda MD PhD Active DOXEPIN HCL 10 MG ORAL CAPSULE Take 1 tablet by mouth daily DOXEPIN HCL 04071203178 No Longer Active Salina Ervinford [facility] Active NAVANE 10 MG CAPS 1/2 tablet twice a day THIOTHIXENE No Longer Active Salina Ervinford A Active CYCLOBENZAPRINE HCL 10 MG ORAL TABLET 1/2 tablet by mouth every 8 hours as needed for muscle spasms CYCLOBENZAPRINE HCL 88271813654 No Longer Active Alina Castaneda MD PhD Active BACTROBAN 2 % EXTERNAL CREAM apply to ear and nose twice daily MUPIROCIN CALCIUM 45188049409 No Longer Active Alina Castaneda MD PhD Active HYDROCODONE-ACETAMINOPHEN 5-325 MG ORAL TABLET take one tablet by mouth every four hours as needed for pain HYDROCODONE-ACETAMINOPHEN 97423165037 No Longer Active Alina Castaneda MD PhD Active ZYPREXA 5 MG ORAL TABLET take one tablet by mouth every evening OLANZAPINE 49454246773 No Longer Active Alina Castaneda MD PhD Active ALBUTEROL SULFATE (2.5 MG/3ML) 0.083% INHALATION NEBULIZATION SOLUTION one vial per nebulizer TID and PRN cough/soa ALBUTEROL SULFATE 94061581709 No Longer Active Alina Castaneda MD PhD Active GUAIFENESIN ER 600 MG ORAL TABLET EXTENDED RELEASE 12 HOUR 1 tablet by mouth twice daily if needed for cough GUAIFENESIN 84012124748 No Longer Active Marvel MARROQUIN Active AZITHROMYCIN 500 MG INTRAVENOUS SOLUTION RECONSTITUTED 1 po q day AZITHROMYCIN 98915637299 No Longer Active Alina Castaneda MD PhD Active PROMETHAZINE-CODEINE 6.25-10 MG/5ML ORAL SYRUP 1 tsp po q 6 hours prn cough PROMETHAZINE-CODEINE 18546518026 No Longer Active Alina Castaneda MD PhD Active CEFDINIR 300 MG ORAL CAPSULE by mouth twice a day CEFDINIR 40281463497 No Longer Active Alina Castaneda MD PhD Active METFORMIN HCL ER 500 MG ORAL TABLET EXTENDED RELEASE 24 HOUR Take 3 tablets by mouth everyday METFORMIN HCL 44544567839 No Longer Active Alina Castaneda MD PhD Active LEVEMIR 100 UNIT/ML SUBCUTANEOUS SOLUTION 90 units SQ qHS INSULIN DETEMIR 83220113182 No Longer Active Marvel MARROQUIN Active TOPROL XL 100 MG ORAL TABLET EXTENDED RELEASE 24 HOUR 1 @ HS METOPROLOL SUCCINATE 42801728509 No Longer Active Marvel MARROQUIN Active ALLOPURINOL 300 MG ORAL TABLET Take one by mouth daily ALLOPURINOL 53867259116 Active Mima Erazo APRN Active ZYPREXA 10 MG ORAL TABLET Take one by mouth daily OLANZAPINE 16602032210 No Longer Active Alina Castaneda MD PhD Active NOVOLOG 100 UNIT/ML SUBCUTANEOUS SOLUTION 40 units with every meal INSULIN ASPART 12793543446 No Longer Active Alina Castaneda MD PhD Active VERAPAMIL HCL ER 120 MG ORAL TABLET EXTENDED RELEASE 1 qPM 09/08 VERAPAMIL HCL 00728191917 No Longer Active Salina ROJAS Active ZYPREXA 15 MG ORAL TABLET Take 1 tablet by mouth daily OLANZAPINE 79165863632 No Longer Active Marvel MARROQUIN Active ALBUTEROL SULFATE (2.5 MG/3ML) 0.083% INHALATION NEBULIZATION SOLUTION 1 neb tid and prn cough ALBUTEROL SULFATE 66621162215 No Longer Active Alina Castaneda MD PhD Active LANTUS 100 UNIT/ML SUBCUTANEOUS SOLUTION 60 units sq q hs INSULIN GLARGINE 30709305982 No Longer Active CRYSTAL Suarez Active ALBUTEROL SULFATE (2.5 MG/3ML) 0.083% INHALATION NEBULIZATION SOLUTION 1 neb tid and prn cough ALBUTEROL SULFATE (2.5 MG/3ML) 0.083% INHALATION NEBULIZATION SOLUTION 598481 ALBUTEROL SULFATE Inactive ZYPREXA 15 MG ORAL TABLET Take 1 tablet by mouth daily ZYPREXA 15 MG ORAL TABLET 428616 OLANZAPINE Inactive VERAPAMIL HCL ER 120 MG ORAL TABLET EXTENDED RELEASE 1 qPM 09/08 VERAPAMIL HCL ER 120 MG ORAL TABLET EXTENDED RELEASE VERAPAMIL HCL Inactive ZYPREXA 10 MG ORAL TABLET Take one by mouth daily ZYPREXA 10 MG ORAL TABLET 059905 OLANZAPINE Inactive TOPROL XL 100 MG ORAL TABLET EXTENDED RELEASE 24 HOUR 1 @ HS TOPROL XL 100 MG ORAL TABLET EXTENDED RELEASE 24 HOUR METOPROLOL SUCCINATE Inactive LEVEMIR 100 UNIT/ML SUBCUTANEOUS SOLUTION 90 units SQ qHS LEVEMIR 100 UNIT/ML SUBCUTANEOUS SOLUTION INSULIN DETEMIR Inactive PROMETHAZINE-CODEINE 6.25-10 MG/5ML ORAL SYRUP 1 tsp po q 6 hours prn cough PROMETHAZINE-CODEINE 6.25-10 MG/5ML ORAL SYRUP 439220 PROMETHAZINE-CODEINE Inactive GUAIFENESIN ER 600 MG ORAL TABLET EXTENDED RELEASE 12 HOUR 1 tablet by mouth twice daily if needed for cough GUAIFENESIN ER 600 MG ORAL TABLET EXTENDED RELEASE 12 HOUR GUAIFENESIN Inactive ALBUTEROL SULFATE (2.5 MG/3ML) 0.083% INHALATION NEBULIZATION SOLUTION one vial per nebulizer TID and PRN cough/soa ALBUTEROL SULFATE (2.5 MG/3ML) 0.083% INHALATION NEBULIZATION SOLUTION 507337 ALBUTEROL SULFATE Inactive ZYPREXA 5 MG ORAL TABLET take one tablet by mouth every evening ZYPREXA 5 MG ORAL TABLET 287157 OLANZAPINE Inactive HYDROCODONE-ACETAMINOPHEN 5-325 MG ORAL TABLET take one tablet by mouth every four hours as needed for pain HYDROCODONE-ACETAMINOPHEN 5-325 MG ORAL TABLET 548694 HYDROCODONE-ACETAMINOPHEN Inactive BACTROBAN 2 % EXTERNAL CREAM apply to ear and nose twice daily BACTROBAN 2 % EXTERNAL CREAM 112976 MUPIROCIN CALCIUM Inactive CYCLOBENZAPRINE HCL 10 MG ORAL TABLET 1/2 tablet by mouth every 8 hours as needed for muscle spasms CYCLOBENZAPRINE HCL 10 MG ORAL TABLET 852945 CYCLOBENZAPRINE HCL Inactive NAVANE 10 MG CAPS 1/2 tablet twice a day NAVANE 10 MG CAPS THIOTHIXENE Inactive DOXEPIN HCL 10 MG ORAL CAPSULE Take 1 tablet by mouth daily DOXEPIN HCL 10 MG ORAL CAPSULE 8855802 DOXEPIN HCL Inactive HYDROCODONE-ACETAMINOPHEN 7.5-325 MG ORAL TABLET 1 four times a day as needed for pain HYDROCODONE-ACETAMINOPHEN 7.5-325 MG ORAL TABLET 836982 HYDROCODONE-ACETAMINOPHEN Inactive NIACIN ER 500 MG ORAL [...] hr. PRN ACETAMINOPHEN 500 MG ORAL TABLET 150358 ACETAMINOPHEN Inactive SAPHRIS 5 MG SUBLINGUAL TABLET SUBLINGUAL by mouth twice a day SAPHRIS 5 MG SUBLINGUAL TABLET SUBLINGUAL ASENAPINE MALEATE Inactive NIACIN ER 500 MG ORAL TABLET EXTENDED RELEASE 4 qHS (for triglycerides) 01/13 NIACIN ER 500 MG ORAL TABLET EXTENDED RELEASE NIACIN Inactive IBUPROFEN 200 MG ORAL TABLET 1 Q 6 hr. PRN IBUPROFEN 200 MG ORAL TABLET 647814 IBUPROFEN Inactive FLUTICASONE PROPIONATE 50 MCG/ACT NASAL SUSPENSION 2 sprays each nostril qDay x 30 days FLUTICASONE PROPIONATE 50 MCG/ACT NASAL SUSPENSION 8719687 FLUTICASONE PROPIONATE Inactive EQL TRUETEST TEST IN [...] at HS ZYPREXA 7.5 MG ORAL TABLET 896939 OLANZAPINE Inactive THIOTHIXENE 5 MG ORAL CAPSULE by mouth twice a day THIOTHIXENE 5 MG ORAL CAPSULE 800260 THIOTHIXENE Inactive UROXATRAL 10 MG ORAL TABLET EXTENDED RELEASE 24 HOUR Take 1 tablet by mouth daily UROXATRAL 10 MG ORAL TABLET EXTENDED RELEASE 24 HOUR ALFUZOSIN HCL Inactive ACYCLOVIR 400 MG ORAL TABLET 1 pill three times daily x 5 days, for cold sore outbreak ACYCLOVIR 400 MG ORAL TABLET 942338 ACYCLOVIR Inactive TRUETEST TEST IN VITRO STRIP check sugars 4x/day TRUETEST TEST IN VITRO STRIP GLUCOSE BLOOD Inactive HUMALOG 100 UNIT/ML SUBCUTANEOUS SOLUTION Take 20 units with breakfast, 10u with lunch and suppetr. HUMALOG 100 UNIT/ML SUBCUTANEOUS SOLUTION INSULIN LISPRO (HUMAN) Inactive CYCLOBENZAPRINE HCL 10 MG ORAL TABLET 1 tablet by mouth three times daily, scheduled CYCLOBENZAPRINE HCL 10 MG ORAL TABLET 493962 CYCLOBENZAPRINE HCL Inactive ACCU-CHEK ROSA IN VITRO STRIP use strips with device to check blood sugars 3 times daily ACCU-CHEK ROSA IN VITRO STRIP GLUCOSE BLOOD Inactive ACCU-CHEK ROSA DEVICE Use device to check blood sugars ACCU-CHEK ROSA DEVICE BLOOD GLUCOSE MONITORING SUPPL Inactive FLUVOXAMINE MALEATE 100 MG ORAL TABLET Take 1/2 tab at noon 03/04 FLUVOXAMINE MALEATE 100 MG ORAL TABLET 168268 FLUVOXAMINE MALEATE Inactive FLUVOXAMINE MALEATE 100 MG ORAL TABLET Take one (1) tablet by mouth am, 1/2 at noon FLUVOXAMINE MALEATE 100 MG ORAL TABLET 180226 FLUVOXAMINE MALEATE Inactive BACTROBAN 2 % EXTERNAL CREAM Apply to affected area BID for up to 10 days BACTROBAN 2 % EXTERNAL CREAM 216508 MUPIROCIN CALCIUM Inactive NOVOFINE 32G X 6 MM use one four times per day NOVOFINE 32G X 6 MM INSULIN PEN NEEDLE Inactive TRAZODONE HCL 100 MG ORAL TABLET 1 tab by mouth for sleep TRAZODONE HCL 100 MG ORAL TABLET 795716 TRAZODONE HCL Inactive LOVAZA 1 GM ORAL CAPSULE 4 daily (for triglycerides) LOVAZA 1 GM ORAL CAPSULE 205682 [id number] ETHYL ESTERS Inactive METFORMIN HCL ER 500 [...] bladder TOLTERODINE TARTRATE 2 MG ORAL TABLET 968943 TOLTERODINE TARTRATE Inactive COLACE 100 MG ORAL CAPSULE 1 pill by mouth twice daily, for constipation 2014 COLACE 100 MG ORAL CAPSULE 9043625 DOCUSATE SODIUM Inactive LOMOTIL 2.5-0.025 MG ORAL TABLET take 1-2 tabs PO after each stool, no more than 8 in 24 hours LOMOTIL 2.5-0.025 MG ORAL TABLET 7699293 DIPHENOXYLATE-ATROPINE Inactive ZOFRAN 4 MG ORAL TABLET 1 po q4hr PRN Nausea ZOFRAN 4 MG ORAL TABLET 643656 ONDANSETRON HCL Inactive HYDROCODONE-ACETAMINOPHEN 5-325 MG ORAL TABLET 2 tabs by mouth three times daily for pain HYDROCODONE-ACETAMINOPHEN 5-325 MG ORAL TABLET 374946 HYDROCODONE-ACETAMINOPHEN Inactive ZOLPIDEM TARTRATE 10 MG ORAL TABLET take at bedtime ZOLPIDEM TARTRATE 10 MG ORAL TABLET 285731 ZOLPIDEM TARTRATE Inactive LISINOPRIL 20 MG ORAL TABLET 1 BID LISINOPRIL 20 MG ORAL TABLET 728785 LISINOPRIL Inactive TRAVATAN Z 0.004 % OPHTHALMIC SOLUTION 1 gtt each eye daily TRAVATAN Z 0.004 % OPHTHALMIC SOLUTION TRAVOPROST Inactive LATUDA 60 MG ORAL TABLET Take one by mouth daily LATUDA 60 MG ORAL TABLET LURASIDONE HCL Inactive FLUVOXAMINE MALEATE 50 MG ORAL TABLET 1 tab by mouth daily 04/01 FLUVOXAMINE MALEATE 50 MG ORAL TABLET 865006 FLUVOXAMINE MALEATE Inactive LEVEMIR FLEXTOUCH 100 UNIT/ML [...] 30G 3 a day TRUEPLUS LANCETS 30G 87066486038 LANCETS Inactive AMITIZA 24 MCG ORAL CAPSULE [...] noon FLUVOXAMINE MALEATE 100 MG ORAL TABLET 632644 FLUVOXAMINE MALEATE Inactive FLONASE ALLERGY RELIEF 50 MCG/ACT NASAL SUSPENSION One spray each nostril BID x 1 week then daily FLONASE ALLERGY RELIEF 50 MCG/ACT NASAL SUSPENSION 2116059 FLUTICASONE PROPIONATE Inactive IMODIUM A-D 2 MG ORAL TABLET 1 tab QID as needed IMODIUM A-D 2 MG ORAL TABLET 837459 LOPERAMIDE HCL Inactive MYLANTA GAS RELIEF MAXIMUM STR 125 MG ORAL CAPSULE 30cc every 4 hours prn MYLANTA GAS RELIEF MAXIMUM STR 125 MG ORAL CAPSULE SIMETHICONE Inactive TRUEPLUS LANCETS 30G 3x a day TRUEPLUS LANCETS 30G 82574532186 LANCETS Inactive TRUE METRIX BLOOD GLUCOSE TEST [...] headaches TRAZODONE HCL 100 MG ORAL TABLET 981110 TRAZODONE HCL Inactive TYLENOL 8 HOUR 650 MG ORAL TABLET EXTENDED RELEASE 1 tab QID prn TYLENOL 8 HOUR 650 MG ORAL TABLET EXTENDED RELEASE ACETAMINOPHEN Inactive [facility] LUBRICANT EYE DROPS 0.4-0.3 % OPHTHALMIC SOLUTION [facility] LUBRICANT EYE DROPS 0.4-0.3 % OPHTHALMIC SOLUTION POLYETHYL GLYCOL- PROPYL GLYCOL Inactive CEFDINIR 300 MG ORAL CAPSULE by mouth twice a day CEFDINIR 300 MG ORAL CAPSULE 495892 CEFDINIR Inactive AZITHROMYCIN 500 MG INTRAVENOUS SOLUTION RECONSTITUTED 1 po q day AZITHROMYCIN 500 MG INTRAVENOUS SOLUTION RECONSTITUTED 24684888711 AZITHROMYCIN Inactive AMOXICILLIN 500 MG ORAL CAPSULE 2 po BID x 10 days AMOXICILLIN 500 MG ORAL CAPSULE 113857 AMOXICILLIN Inactive PENICILLIN V POTASSIUM 500 MG ORAL TABLET 1 pill by mouth three times daily PENICILLIN V POTASSIUM 500 MG ORAL TABLET 676462 PENICILLIN V POTASSIUM Inactive KEFLEX 500 MG ORAL CAPSULE 1 po BID x 7 days KEFLEX 500 MG ORAL CAPSULE 654049 CEPHALEXIN Inactive Immunizations Vaccine Administration Date Value [...] Fluvirin, Fluarix, Agriflu(>=18 yo)) Fluzone (>3 yrs.) [[id number]] Influenza, seasonal, injectable pneumococcal immunization administered Pneumovax [...] ... - Chemistry sodium, serum 135 mmol/L 719-219 9781/08/22 carbon dioxide, venous blood 28.4 mmol/L 21.0-32.0 [...] mg/g {creat} 0-29 cholesterol, serum 263 mg/dL 374-898 0497/08/22 triglyceride, serum, fasting 1312 mg/dL 30-200 HDL [...] ordered Encounters Code Encounter Date Provider Facility CPT-31230 Level 3 Est. 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 Patient 16:52:51 CDT Vanessa Hickey MD [facility]-[id number] Level 3 Est. Patient 17:40:16 CDT Mima Erazo [facility] CPT-42535 Level 3 Est. Patient 14:34:52 CDT Vanessa Hickey MD [facility]-22351 Level 3 Est. Patient 16:27:51 CDT Mima Erazo [facility] CPT-37794 Level 3 Est. Patient 14:39:00 ACCOUNTING GENERALIST Vanessa Hickey MD [facility]-17499 Level 2 Est. Patient 18:43:34 CDT Mima Erazo [facility] CPT-08821 Level 3 Est. Patient 16:22:09 CDT Cherelle Avila [facility] CPT-60287 Level 4 Est. Patient 17:55:14 CDT Mima Erazo [facility] CPT-48085 Level 2 Est. Patient 17:13:21 CDT Alina Castaneda MD [facility] CPT-09823 Level 3 Est. Patient 14:46:15 CDT Vanessa Hickey MD [facility]-51026 Level 3 Est. Patient 09:34:56 CDT Alina Castaneda MD [facility]-33267 Level 3 Est. Patient 21:40:19 CDT Mima Jeffliudmila [facility] CPT-83175 Level 3 Est. Patient 09:26:40 CDT Marvel Charles [facility] CPT-30297 Level 3 Est. Patient 12:36:43 CDT Vanessa Hickey MD [facility]-54494 Level 3 Est. Patient 12:57:49 CDT Vanessa Hickey MD [facility]-43376 Level 3 Est. Patient 00:28:25 CDT Alina Castaneda MD [facility]73836 Level 2 Est. Patient 12:52:14 CDT Alina Castaneda MD [facility]00497 Level 3 Est. Patient 11:51:18 ACCOUNTING GENERALIST Alina Castaneda MD [facility]-69898 Level 3 Est. Patient 10:09:22 ACCOUNTING GENERALIST Alina Castaneda MD [facility]76020 Level 3 Est. Patient 14:36:26 ACCOUNTING GENERALIST Marvel Charles [facility]-96208 Level 3 Est. Patient 13:34:47 ACCOUNTING GENERALIST Alina Castaneda MD [facility]29453 Level 3 Est. Patient 19:52:08 ACCOUNTING GENERALIST Alina Castaneda MD [facility]-58074 Level 3 Est. Patient 10:01:51 ACCOUNTING GENERALIST Marvel Charles [facility]-99903 Level 3 Est. Patient 21:54:06 CDT Vanessa Hickey MD [facility]-44951 Level 3 Est. Patient 08:54:46 CDT Alina Castaneda MD [facility]-32064 Level 3 Est. Patient 09:32:11 CDT Marvel Charles [facility]-37143 Level 3 Est. Patient 12:02:49 CDT Alina Castaneda MD [facility]44294 Level 3 Est. Patient 19:17:33 CDT Alina Castaneda MD [facility]02430 Level 3 Est. Patient 13:19:10 CDT Marvel Charles [facility]-18944 Level 3 Est. Patient 08:20:05 CDT Alina Castaneda MD [facility]97473 Level 3 Est. Patient 15:17:18 CDT Alina Castaneda MD [facility]51576 Level 3 Est. Patient 14:25:36 ACCOUNTING GENERALIST Marvel Charles [facility]-78559 Level 3 Est. Patient 10:09:15 ACCOUNTING GENERALIST Marvel Charles [facility]-69749 Level 3 Est. Patient 21:28:43 CDT Alina Castaneda MD [facility]31051 Level 3 Est. Patient 15:20:11 [facility]T [facility] Patient 19:08:12 CDT Alina Castaneda MD [facility]-86771 Level 3 Est. Patient 15:06:39 CDT Marvel Charles [facility]-43035 Level 4 Est. Patient 17:48:15 CDT Alina Castaneda MD [facility]-90211 Level 3 Est. Patient 14:53:49 CDT Alina Castaneda MD [facility]-11755 Level 3 Est. Patient 09:35:16 CDT Alina Castaneda MD [facility]-73431 Level 3 Est. Patient 12:23:22 CDT Alina Castaneda MD [facility]59807 Level 3 Est. Patient 16:19:15 CDT Alina Castaneda MD [facility]45368 Level 3 Est. Patient 21:39:56 ACCOUNTING GENERALIST Alina Castaneda MD [facility]-54845 Level 4 Est. Patient 14:12:56 ACCOUNTING GENERALIST Alina Castaneda MD [facility]-88363 Level 2 Est. Patient 15:34:57 ACCOUNTING GENERALIST Alina Castaneda MD [facility]73106 Level 3 Est. Patient 12:17:04 ACCOUNTING GENERALIST Alina Castaneda MD [facility]01832 Level 3 Est. Patient 09:18:18 ACCOUNTING GENERALIST Marvel Charles [facility]-35817 Level 2 Est. Patient 21:50:24 CDT Alina Castaneda MD [facility]60646 Level 3 Est. Patient 09:17:28 CDT Marvel Charles [facility]-09306 Level 4 Est. Patient 18:54:02 CDT Alina Castaneda MD [facility]-07649 Level 3 Est. Patient 10:47:10 CDT Alina Castaneda MD [facility]-94166 Level 3 Est. Patient 09:22:20 CDT Marvel Charles [facility]-65999 Level 3 Est. Patient 16:39:43 CDT Marvel Charles [facility]-75703 Level 3 Est. Patient 16:05:16 CDT Alina Castaneda MD [facility]-14653 Level 3 Est. Patient 00:29:15 CDT Alina Castaneda MD [facility]13248 Level 3 Est. Patient 10:49:22 ACCOUNTING GENERALIST Marvel Charles [facility]-30355 Level 3 Est. Patient 21:30:19 ACCOUNTING GENERALIST Alina Castaneda MD PhD [facility] CPT-69440 Level 4 Est. Patient 17:04:11 ACCOUNTING GENERALIST [place] Charles [facility] CPT-82151 Level 3 Est. Patient 15:34:11 [facility]IST [facility] CPT-06351 Level 2 Est. Patient 12:51:58 ACCOUNTING GENERALIST Alina Castaneda MD PhD [facility] CPT-87282 Level 3 Est. Patient 13:20:01 ACCOUNTING GENERALIST Alina Castaneda MD PhD [facility] CPT-71276 Level 3 Est. Patient 09:23:35 CDT Alina Castaneda MD PhD [facility] Procedures Code Procedure Name Date Entry Date Standard Description CPT-TCMM Transitional Care Mgmt-Moderate 12:32:19 CDT CPT-26603 Level 2 Assisted 09:01:11 CDT CPT-19304 HGBA1C - LAB USE ONLY 09:30:27 ACCOUNTING GENERALIST CPT-84315 BMP - LAB USE ONLY 09:30:27 ACCOUNTING GENERALIST CPT-62744 Venipuncture Draw Fee 09:30:26 ACCOUNTING GENERALIST CPT-TCMM Transitional Care Mgmt-Moderate 10:25:31 CDT CPT-98500 Bladder Scan 14:34:53 CDT CPT-89879 Bladder Scan 14:39:01 ACCOUNTING GENERALIST CPT-TCMM Transitional Care Mgmt-Moderate 10:30:19 ACCOUNTING GENERALIST CPT-65040 Bladder Scan 12:36:44 CDT CPT-94423 Bladder Scan 21:54:06 CDT CPT-G0008 Administration of Influenza Virus Vaccine 13:05:26 CDT CPT-39832 Fluzone Quadrivalent Intramuscular Suspension 0.5 ML 13: 05:26 CDT CPT-80718 Administration single or combination vaccine inc oral 11 :49:51 CDT CPT-49742 Pneumovax 11:49:51 CDT CPT-51749 Ribs unilateral 2V 12:37:22 ACCOUNTING GENERALIST CPT-60987 Chest 2V Frontal and Lat 17:15:26 CDT CPT-22338 Abx/Therapy Injection 18:54:02 CDT CPT-J0696 Rocephin 1000 mg (Ceftriaxone) 16:00:32 CDT CPT-54001 Chest 2V Frontal and Lat 15:26:45 CDT CPT-38515 Chest 2V Frontal and Lat 10:23:27 CDT CPT-42810 Venipuncture Draw Fee 10:11:00 CDT CPT-66373 Administration single or combination vaccine inc oral 11 :56:38 CDT CPT-30544 Influenza split virus > age 3 11:56:38 CDT CPT-05999 Venipuncture Draw Fee 08:49:54 ACCOUNTING GENERALIST CPT-56448 EKG Trac and Interp 17:54:19 ACCOUNTING GENERALIST
--- OUTSIDE RECORDS SUMMARY | 2018-07-02 13:00 | XMS REPORT | Clinical Summary ---
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 16:52:51 CDT Vanessa Hickey MD [facility]-73071 Level 3 Est. Patient 17:40:16 CDT Mima Erazo [facility] [place] CPT-35756 Level 3 Est. Patient 14:34:52 CDT Vanessa Hickey MD [facility]-45578 Level 3 Est. Patient 16:27:51 CDT Mima Erazo [facility]-09895 Level 3 Est. Patient 14:39:00 TRANSIT PROOF MACHINE OPERATOR Vanessa Hickey MD [facility]-63124 Level 2 Est. Patient 18:43:34 CDT Mima Erazo [facility] CPT-37828 Level 3 Est. Patient 16:22:09 CDT Cherelle Avila [facility] CPT-46704 Level 4 Est. Patient 17:55:14 CDT [facility]96368 Level 2 Est. Patient 17:13:21 CDT Alina Castaneda [facility]-26811 Level 3 Est. Patient 14:46:15 CDT Vanessa Hickey MD [facility]-59028 Level 3 Est. Patient 09:34:56 CDT Alina Castaneda MD [facility]-35310 Level 3 Est. Patient 21:40:19 CDT Mima Kacey [facility] CPT-53799 Level 3 Est. Patient 09:26:40 CDT Marvel Charles [facility]-11042 Level 3 Est. Patient 12:36:43 CDT Vanessa Hickey MD [facility]-26596 Level 3 Est. Patient 12:57:49 CDT Vanessa Hickey MD [facility]-33447 Level 3 Est. Patient 00:28:25 CDT Alina Castaneda MD [facility]-14277 Level 2 Est. Patient 12:52:14 CDT Alina Castaneda MD [facility]41535 Level 3 Est. Patient 11:51:18 TRANSIT PROOF MACHINE OPERATOR Alina Castaneda MD [facility] 2001-37070 Level 3 Est. Patient 10:09:22 TRANSIT PROOF MACHINE OPERATOR Alina Castaneda MD [facility]19200 Level 3 Est. Patient 14:36:26 TRANSIT PROOF MACHINE OPERATOR [facility]66858 Level 3 Est. Patient 13:34:47 TRANSIT PROOF MACHINE OPERATOR Alina Castaneda MD [facility]51288 Level 3 Est. Patient 19:52:08 TRANSIT PROOF MACHINE OPERATOR Alina Castaneda MD [facility]28659 Level 3 Est. Patient 10:01:51 TRANSIT PROOF MACHINE OPERATOR [facility]-24019 Level 3 Est. Patient 21:54:06 CDT Vanessa Hickey MD [facility]-15408 Level 3 Est. Patient 08:54:46 CDT Alina Castaneda MD [facility] 2001-10705 Level 3 Est. Patient 09:32:11 CDT Marvel Charles [facility]-31710 Level 3 Est. Patient 12:02:49 CDT Alina Castaneda MD [facility]95924 Level 3 Est. Patient 19:17:33 CDT Alina Castaneda MD [facility]21641 Level 3 Est. Patient 13:19:10 CDT Marvel Charles [facility]-30501 Level 3 Est. Patient 08:20:05 CDT Alina Castaneda MD [facility] 2001-47861 Level 3 Est. Patient 15:17:18 CDT Alina Castaneda MD [facility] 2001-59778 Level 3 Est. Patient 14:25:36 TRANSIT PROOF MACHINE OPERATOR Marvel Charles [facility]-77705 Level 3 Est. Patient 10:09:15 TRANSIT PROOF MACHINE OPERATOR [place] [facility]-71802 Level 3 Est. Patient 21:28:43 CDT Alina Castaneda MD [facility] 2001-57415 Level 3 Est. Patient 15:20:11 [facility] Level 4 Est. Patient 19:08:12 CDT Alina Castaneda MD [facility] 2001-10812 Level 3 Est. Patient 15:06:39 CDT [facility] Level 4 Est. Patient 17:48:15 CDT Alina Castaneda MD [facility] 2001-33591 Level 3 Est. Patient 14:53:49 CDT Alina Castaneda MD [facility] 2001-87752 Level 3 Est. Patient 09:35:16 CDT Alina Castaneda MD [facility] 2001-80681 Level 3 Est. Patient 12:23:22 CDT Alina Castaneda MD [facility] 2001-88163 Level 3 Est. Patient 16:19:15 CDT Alina Castaneda MD [facility]-82580 Level 3 Est. Patient 21:39:56 TRANSIT PROOF MACHINE OPERATOR Alina Castaneda MD [facility] 2001-59862 Level 4 Est. Patient 14:12:56 TRANSIT PROOF MACHINE OPERATOR Alina Castaneda MD [facility] 2001-56137 Level 2 Est. Patient 15:34:57 TRANSIT PROOF MACHINE OPERATOR Alina Castaneda MD [facility] 2001-08238 Level 3 Est. Patient 12:17:04 TRANSIT PROOF MACHINE OPERATOR Alina Castaneda MD [facility]08538 Level 3 Est. Patient 09:18:18 TRANSIT PROOF MACHINE OPERATOR Marvel Charles [facility]-20464 Level 2 Est. Patient 21:50:24 CDT Alina Castaneda MD [facility]35829 Level 3 Est. Patient 09:17:28 CDT Marvel Charles [facility]-31302 Level 4 Est. Patient 18:54:02 CDT Alina Castaneda MD [facility] 2001-70542 Level 3 Est. Patient 10:47:10 CDT Alina Castaneda MD [facility] 2001-57134 Level 3 Est. Patient 09:22:20 CDT Marvel Charles [facility]-54510 Level 3 Est. Patient 16:39:43 CDT Marvel Charles [facility]-09805 Level 3 Est. Patient 16:05:16 CDT Alina Castaneda MD [facility] 2001-62181 Level 3 Est. Patient 00:29:15 CDT Alina Castaneda MD [facility] 2001-99888 Level 3 Est. Patient 10:49:22 TRANSIT PROOF MACHINE OPERATOR Marvel Charles [facility]-90166 Level 3 Est. Patient 21:30:19 TRANSIT PROOF MACHINE OPERATOR Alina Castaneda MD [facility]51584 Level 4 Est. Patient 17:04:11 TRANSIT PROOF MACHINE OPERATOR [facility] CPT-97626 Level 3 Est. Patient 15:34:11 TRANSIT PROOF MACHINE OPERATOR [facility] CPT-75763 Level 2 Est. Patient 12:51:58 TRANSIT PROOF MACHINE OPERATOR Alina Castaneda MD PhD [facility] CPT-74242 Level 3 Est. Patient 13:20:01 TRANSIT PROOF MACHINE OPERATOR Alina Castaneda MD PhD [facility] CPT-42037 Level 3 Est. Patient 09:23:35 CDT Alina Castaneda MD PhD [facility] Procedures Code Procedure Name Date Entry Date Standard Description CPT-TCMM Transitional Care Mgmt-Moderate 12:32:19 CDT CPT-66541 Level 2 Detention 09:01:11 CDT CPT-88850 HGBA1C - LAB USE ONLY 09:30:27 TRANSIT PROOF MACHINE OPERATOR CPT-63062 BMP - LAB USE ONLY 09:30:27 TRANSIT PROOF MACHINE OPERATOR CPT-04790 Venipuncture Draw Fee 09:30:26 TRANSIT PROOF MACHINE OPERATOR CPT-TCMM Transitional Care Mgmt-Moderate 10:25:31 CDT CPT-74825 Bladder Scan 14:34:53 CDT CPT-87119 Bladder Scan 14:39:01 TRANSIT PROOF MACHINE OPERATOR CPT-TCMM Transitional Care Mgmt-Moderate 10:30:19 TRANSIT PROOF MACHINE OPERATOR CPT-10911 Bladder Scan 12:36:44 CDT CPT-95632 Bladder Scan 21:54:06 CDT CPT-G0008 Administration of Influenza Virus Vaccine 13:05:26 CDT CPT-83393 Fluzone Quadrivalent Intramuscular Suspension 0.5 ML 13: 05:26 CDT CPT-58525 Administration single or combination vaccine inc oral 11 :49:51 CDT CPT-06632 Pneumovax 11:49:51 CDT CPT-28549 Ribs unilateral 2V 12:37:22 TRANSIT PROOF MACHINE OPERATOR CPT-61044 Chest 2V Frontal and Lat 17:15:26 CDT CPT-60066 Abx/Therapy Injection 18:54:02 CDT CPT-J0696 Rocephin 1000 mg (Ceftriaxone) 16:00:32 CDT CPT-85128 Chest 2V Frontal and Lat 15:26:45 CDT CPT-06191 Chest 2V Frontal and Lat 10:23:27 CDT CPT-92387 Venipuncture Draw Fee 10:11:00 CDT CPT-96569 Administration single or combination vaccine inc oral 11 :56:38 CDT CPT-07028 Influenza split virus > age 3 11:56:38 CDT CPT-10923 Venipuncture Draw Fee 08:49:54 TRANSIT PROOF MACHINE OPERATOR CPT-33765 EKG Trac and Interp 17:54:19 TRANSIT PROOF MACHINE OPERATOR
--- OUTSIDE RECORDS SUMMARY | 2018-07-02 13:02 | XMS REPORT | Clinical Summary ---
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 Diabetes mellitus without mention of complication, [...] tablet by mouth at bedtime QUETIAPINE FUMARATE 22848335901 Active Mason Loredo MD Active OCEAN NASAL SPRAY SOLUTION 2 sprays in both nostrils every 8 hours as needed for dry mucous membranes SALINE SOLN 04780585805 Active Mason Loredo MD Active BETHANECHOL CHLORIDE 25 MG ORAL TABLET Take 1 tablet mouth four times a day BETHANECHOL CHLORIDE 37935570103 Active Mason Loredo MD Active [facility] LUBRICANT E[facility] DROPS 0.4-0.3 % OPHTHALMIC SOLUTION POLYETHYL GLYCOL-PROPYL GLYCOL 10249090558 No Longer Active Mason Loredo MD Active TYLENOL 8 HOUR 650 MG ORAL TABLET EXTENDED RELEASE 1 tab QID prn ACETAMINOPHEN 22665958097 No Longer Active Mason Loredo MD Active TOPAMAX 25 MG ORAL TABLET 1 tab BID PRN TOPIRAMATE 86150335149 Active Mason Loredo MD Active TIMOPTIC OCUDOSE 0.5 % OPHTHALMIC SOLUTION instill one drop into both eyes q12H TIMOLOL MALEATE 20778980554 Active Mason Loredo MD Active TRAZODONE HCL 100 MG ORAL TABLET 1 every night to prevent headaches TRAZODONE HCL 57301131920 No Longer Active Mason Loredo MD Active TRAVATAN Z 0.004 % OPHTHALMIC SOLUTION 1 drop each eye daily 2017 TRAVOPROST 27112591215 No Longer Active Mason Loredo MD Active LATUDA 60 MG ORAL TABLET 1 tab daily LURASIDONE HCL 66079399422 No Longer Active Mason Loredo MD Active MORPHINE SULFATE ER 30 MG ORAL TABLET EXTENDED RELEASE Take one capsule BID MORPHINE SULFATE 34313576439 No Longer Active Mason Loredo MD Active TRUE METRIX BLOOD GLUCOSE TEST IN VITRO STRIP Check blood sugars 3x/day. 2015 GLUCOSE BLOOD 02844290511 No Longer Active Mason Loredo MD Active TRUEPLUS LANCETS 30G 3x a day LANCETS 57295398402 No Longer Active Mason Loredo MD Active MYLANTA GAS RELIEF MAXIMUM STR 125 MG ORAL CAPSULE 30cc every 4 hours prn SIMETHICONE 67457457623 No Longer Active Mason Loredo MD Active IMODIUM A-D 2 MG ORAL TABLET 1 tab QID as needed LOPERAMIDE HCL 12432202978 No Longer Active Mason Loredo MD Active FLONASE ALLERGY RELIEF 50 MCG/ACT NASAL SUSPENSION One spray each nostril BID x 1 week then daily FLUTICASONE PROPIONATE 35384261721 No Longer Active Mason Loredo MD Active FLUVOXAMINE MALEATE 100 MG ORAL TABLET take one tab every AM et HS, and take 1 /2 tab at noon FLUVOXAMINE MALEATE 33198664494 No Longer Active Mason Loredo MD Active BD PEN NEEDLE MINI U/F 31G X 5 MM 4 a day INSULIN PEN NEEDLE 59999708659 No Longer Active Mason Loredo MD Active AMITIZA 24 MCG ORAL CAPSULE Take one capsule BID for constipation LUBIPROSTONE 00042648872 No Longer Active Mason Loredo MD Active TRUEPLUS LANCETS 30G 3 a day LANCETS 50174780904 No Longer Active Mason Loredo MD Active CORICIDIN HBP CONGESTION/COUGH 10-200 MG ORAL CAPSULE Take as directed on box as needed for cold/flu symptoms DEXTROMETHORPHAN- GUAIFENESIN 90462804662 No Longer Active Mason Loredo MD Active OMEGA-3 300 MG ORAL CAPSULE 4 caps by mouth daily OMEGA-3 FATTY ACIDS 39990140486 No Longer Active Mason Loredo MD Active HUMALOG KWIKPEN 100 UNIT/ML SUBCUTANEOUS SOLUTION PEN-INJECTOR sliding scale if needed INSULIN LISPRO (HUMAN) 46815700025 No Longer Active Mason Loredo MD Active TRUETEST TEST IN VITRO STRIP check blood sugars 3x/day GLUCOSE BLOOD 33144409045 No Longer Active Mason Loredo MD Active ALFUZOSIN HCL ER 10 MG ORAL TABLET EXTENDED RELEASE 24 HOUR 1 tablet daily ALFUZOSIN HCL 97792523821 No Longer Active Mason Loredo MD Active BD INSULIN SYRINGE 28G X 1/2" 1 ML 1 four times per day INSULIN SYRINGE-NEEDLE U-100 55199760644 No Longer Active Mason Loredo MD Active LEVEMIR FLEXTOUCH 100 UNIT/ML SUBCUTANEOUS SOLUTION PEN-INJECTOR 60 units SQ each evening, for diabetes INSULIN DETEMIR 20212124375 No Longer Active Mason Loredo MD Active METFORMIN HCL ER (MOD) 500 MG ORAL TABLET EXTENDED RELEASE 24 HOUR give two tabs PO BID METFORMIN HCL 44033849834 Active Mason Loredo MD Active LACTULOSE 20 GM/30ML ORAL SOLUTION give 30 Ml PO BID PRN LACTULOSE 15573106105 Active Mason Loredo MD Active COLACE 100 MG ORAL CAPSULE 1 tab BID PRN DOCUSATE SODIUM 09074442291 Active Mason Loredo MD Active TAMSULOSIN HCL 0.4 MG ORAL CAPSULE give 2 capsules PO each evening TAMSULOSIN HCL 78281698824 Active Mason Loredo MD Active [facility] MELATONIN 3 MG ORAL TABLET give 1 tab by mouth at HS MELATONIN 59854412435 Active Mason Loredo MD Active LATANOPROST 0.005 % OPHTHALMIC SOLUTION instill 1 drop in both eyes at bed time LATANOPROST 55310787180 Active Mason Loredo MD Active AMARYL 2 MG ORAL TABLET give 2.5 tabs PO daily GLIMEPIRIDE 27149636056 Active Mason Loredo MD Active MIRALAX ORAL POWDER 17g by mouth q12h, for constipation POLYETHYLENE GLYCOL 3350 01431812919 Active Mason Loredo MD Active IBUPROFEN 400 MG ORAL TABLET 1 tab Q6H PRN IBUPROFEN 75447062049 Active Mason Loredo MD Active EFFEXOR XR 37.5 MG ORAL CAPSULE EXTENDED RELEASE 24 HOUR Take one by mouth daily VENLAFAXINE HCL 87029442509 Active Mima Erazo APRN Active FLUVOXAMINE MALEATE 50 MG ORAL TABLET 1 tab by mouth daily 04/01 FLUVOXAMINE MALEATE 68877896227 No Longer Active Mima Erazo APRN Active TRUE METRIX METER w/Device KIT Check blood sugars 3x/day BLOOD GLUCOSE MONITORING SUPPL 42212569107 Active Marvel MARROQUIN Active VITAMIN D 2000 UNIT ORAL CAPSULE Take one by mouth daily CHOLECALCIFEROL 26576838358 Active Mima Erazo APRN Active LATUDA 60 MG ORAL TABLET Take one by mouth daily LURASIDONE HCL 16073329471 No Longer Active Mima Erazo APRN Active CLONAZEPAM 1 MG ORAL TABLET 1 pill by mouth three times daily CLONAZEPAM 23021066743 Active Rhett Luther DO Active [facility] MILK OF MAGNESIA 400 MG/5ML ORAL SUSPENSION 30ml by mouth bid prn MAGNESIUM HYDROXIDE 97562837903 Active Mason Loredo MD Active TRAVATAN Z 0.004 % OPHTHALMIC SOLUTION 1 gtt each eye daily TRAVOPROST 59091655448 No Longer Active Mason Loredo MD Active LISINOPRIL 20 MG ORAL TABLET 1 BID LISINOPRIL 41504669129 No Longer Active Mason Loredo MD Active ZOLPIDEM TARTRATE 10 MG ORAL TABLET take at bedtime ZOLPIDEM TARTRATE 26473198894 No Longer Active Mason Loredo MD Active HYDROCODONE-ACETAMINOPHEN 5-325 MG ORAL TABLET 2 tabs by mouth three times daily for pain HYDROCODONE-ACETAMINOPHEN 07006412335 No Longer Active Mason Loredo MD Active ZOFRAN 4 MG ORAL TABLET 1 po q4hr PRN Nausea ONDANSETRON HCL 08009313065 No Longer Active Mason Loredo MD Active LOMOTIL 2.5-0.025 MG ORAL TABLET take 1-2 tabs PO after each stool, no more than 8 in 24 hours DIPHENOXYLATE-ATROPINE 19020374022 No Longer Active Mason Loredo MD Active COLACE 100 MG ORAL CAPSULE 1 pill by mouth twice daily, for constipation 2014 DOCUSATE SODIUM 68853630964 No Longer Active Mima Erazo APRN Active TOLTERODINE TARTRATE 2 MG ORAL TABLET 1 pill twice daily, for bladder TOLTERODINE TARTRATE 77138314130 No Longer Active Vanessa Hickey MD Active AMITIZA 24 MCG ORAL CAPSULE Take one capsule BID for constipation. LUBIPROSTONE 13660126189 No Longer Active Vanessa Hickey MD Active METOPROLOL SUCCINATE ER 100 MG ORAL TABLET EXTENDED RELEASE 24 HOUR 1 by mouth daily for blood pressure METOPROLOL SUCCINATE 58900986825 No Longer Active Grace Azam RMA Active METFORMIN HCL ER 500 MG ORAL TABLET EXTENDED RELEASE 24 HOUR Take three tablets by mouth everyday METFORMIN HCL 10644579553 No Longer Active Grace Azam RMA Active LOVAZA 1 GM ORAL CAPSULE 4 daily (for triglycerides) [id number] ETHYL ESTERS 28992302080 No Longer Active Grace Azam RMA Active TRAZODONE HCL 100 MG ORAL TABLET 1 tab by mouth for sleep TRAZODONE HCL 50134568927 No Longer Active Grace Azam RMA Active NOVOFINE 32G X 6 MM use one four times per day INSULIN PEN NEEDLE 16258225090 No Longer Active Grace Azam RMA Active BACTROBAN 2 % EXTERNAL CREAM Apply to affected area BID for up to 10 days MUPIROCIN CALCIUM 17271041669 No Longer Active Garce Azam RMA Active KEFLEX 500 MG ORAL CAPSULE 1 po BID x 7 days CEPHALEXIN 81981063277 No Longer Active Cherelle Avila APRN Active FLUVOXAMINE MALEATE 100 MG ORAL TABLET Take one (1) tablet by mouth am, 1/2 at noon FLUVOXAMINE MALEATE 47947383923 No Longer Active Mima Erazo APRN Active FLUVOXAMINE MALEATE 100 MG ORAL TABLET Take 1/2 tab at noon 03/04 FLUVOXAMINE MALEATE 77370047970 No Longer Active Cherelle Avila ALBAN Active ACCU-CHEK ROSA DEVICE Use device to check blood sugars BLOOD GLUCOSE MONITORING SUPPL 76402344141 No Longer Active Marvel MARROQUIN Active ACCU-CHEK ROSA IN VITRO STRIP use strips with device to check blood sugars 3 times daily GLUCOSE BLOOD 43644638298 No Longer Active Marvel MARROQUIN Active VERAPAMIL HCL ER 180 MG ORAL TABLET EXTENDED RELEASE 1 pill by mouth twice daily, for migraine prevention VERAPAMIL HCL 21634979542 Active Mimacecily Erazo APRN Active CYCLOBENZAPRINE HCL 10 MG ORAL TABLET 1 tablet by mouth three times daily, scheduled CYCLOBENZAPRINE HCL 66026865731 No Longer Active Alina Castaneda MD PhD Active HUMALOG 100 UNIT/ML SUBCUTANEOUS SOLUTION Take 20 units with breakfast, 10u with lunch and suppetr. INSULIN LISPRO (HUMAN) 67096532286 No Longer Active Alina Castaneda MD PhD Active TRUETEST TEST IN VITRO STRIP check sugars 4x/day GLUCOSE BLOOD 03104288842 No Longer Active Alina Castaneda MD PhD Active MORPHINE SULFATE 30 MG ORAL TABLET 1 pill by mouth twice daily, for pain 2013 MORPHINE SULFATE 20543703256 No Longer Active Mason Loredo MD Active ACYCLOVIR 400 MG ORAL TABLET 1 pill three times daily x 5 days, for cold sore outbreak ACYCLOVIR 49231128143 No Longer Active Alina Castaneda MD PhD Active PENICILLIN V POTASSIUM 500 MG ORAL TABLET 1 pill by mouth three times daily PENICILLIN V POTASSIUM 07784491558 No Longer Active Alina Castaneda MD PhD Active UROXATRAL 10 MG ORAL TABLET EXTENDED RELEASE 24 HOUR Take 1 tablet by mouth daily ALFUZOSIN HCL 77368547705 No Longer Active Alina Castaneda MD PhD Active THIOTHIXENE 5 MG ORAL CAPSULE by mouth twice a day THIOTHIXENE 61284032706 No Longer Active Alina Castaneda MD PhD Active ZYPREXA 7.5 MG ORAL TABLET 1 at HS OLANZAPINE 53732572615 No Longer Active Alina Castaneda MD PhD Active DETROL LA 4 MG ORAL CAPSULE EXTENDED RELEASE 24 HOUR Take 1 tablet by mouth daily TOLTERODINE TARTRATE 61908293590 No Longer Active Alina Castaneda MD PhD Active TERESE CONTOUR TEST IN VITRO STRIP monitor blood sugars 3x/day GLUCOSE BLOOD 32079166378 No Longer Active Alina Castaneda MD PhD Active EQL TRUETEST TEST IN VITRO STRIP Test blood sugar TID GLUCOSE BLOOD 14632241771 No Longer Active Alina Castaneda MD PhD Active FLUTICASONE PROPIONATE 50 MCG/ACT NASAL SUSPENSION 2 sprays each nostril qDay x 30 days FLUTICASONE PROPIONATE 53213326441 No Longer Active Alina Castaneda MD PhD Active IBUPROFEN 200 MG ORAL TABLET 1 Q 6 hr. 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 PRN ACETAMINOPHEN 67755008489 No Longer Active Maliheh Ziglari [employer] SUPERVISOR Active ORPHENADRINE CITRATE ER 100 MG ORAL TABLET EXTENDED RELEASE 12 HOUR 1 every 12 hr. as needed ORPHENADRINE CITRATE 88948381484 No Longer Active Alina Castaneda MD PhD Active NIACIN ER 500 MG ORAL TABLET EXTENDED RELEASE 2 qHS NIACIN 84831860021 No Longer Active Alina Castaneda MD PhD Active AMOXICILLIN 500 MG ORAL CAPSULE 2 po BID x 10 days AMOXICILLIN 56480619863 No Longer Active Alina Castaneda MD PhD Active HYDROCODONE-ACETAMINOPHEN 7.5-325 MG ORAL TABLET 1 four times a day as needed for pain HYDROCODONE-ACETAMINOPHEN 55203957838 No Longer Active Alina Castaneda MD PhD Active DOXEPIN HCL 10 MG ORAL CAPSULE Take 1 tablet by mouth daily DOXEPIN HCL 55160230709 No Longer Active Salina Han A Active NAVANE 10 MG CAPS 1/2 tablet twice a day THIOTHIXENE No Longer Active Salina Han A Active CYCLOBENZAPRINE HCL 10 MG ORAL TABLET 1/2 tablet by mouth every 8 hours as needed for muscle spasms CYCLOBENZAPRINE HCL 71969454355 No Longer Active Alina Castaneda MD PhD Active BACTROBAN 2 % EXTERNAL CREAM apply to ear and nose twice daily MUPIROCIN CALCIUM 95021898925 No Longer Active Alina Castaneda MD PhD Active HYDROCODONE-ACETAMINOPHEN 5-325 MG ORAL TABLET take one tablet by mouth every four hours as needed for pain HYDROCODONE-ACETAMINOPHEN 94917999599 No Longer Active Alina Castaneda MD PhD Active ZYPREXA 5 MG ORAL TABLET take one tablet by mouth every evening OLANZAPINE 33621006761 No Longer Active Alina Castaneda MD PhD Active ALBUTEROL SULFATE (2.5 MG/3ML) 0.083% INHALATION NEBULIZATION SOLUTION one vial per nebulizer TID and PRN cough/soa ALBUTEROL SULFATE 57309905592 No Longer Active Alina Castaneda MD PhD Active GUAIFENESIN ER 600 MG ORAL TABLET EXTENDED RELEASE 12 HOUR 1 tablet by mouth twice daily if needed for cough GUAIFENESIN 03937069901 No Longer Active Marvel MARROQUIN Active AZITHROMYCIN 500 MG INTRAVENOUS SOLUTION RECONSTITUTED 1 po q day AZITHROMYCIN 23433894405 No Longer Active Alina Castaneda MD PhD Active PROMETHAZINE-CODEINE 6.25-10 MG/5ML ORAL SYRUP 1 tsp po q 6 hours prn cough PROMETHAZINE-CODEINE 21597325049 No Longer Active Alina Castaneda MD PhD Active CEFDINIR 300 MG ORAL CAPSULE by mouth twice a day CEFDINIR 21408747686 No Longer Active Alina Castaneda MD PhD Active METFORMIN HCL ER 500 MG ORAL TABLET EXTENDED RELEASE 24 HOUR Take 3 tablets by mouth everyday METFORMIN HCL 58782549775 No Longer Active Alina Castaneda MD PhD Active LEVEMIR 100 UNIT/ML SUBCUTANEOUS SOLUTION 90 units SQ qHS INSULIN DETEMIR 81376184003 No Longer Active Marvel MARROQUIN Active TOPROL XL 100 MG ORAL TABLET EXTENDED RELEASE 24 HOUR 1 @ HS METOPROLOL SUCCINATE 98093582144 No Longer Active Marvel MARROQUIN Active ALLOPURINOL 300 MG ORAL TABLET Take one by mouth daily ALLOPURINOL 17201322418 Active Mima Erazo CERTIFIED PESTICIDE APPLICATOR Active ZYPREXA 10 MG ORAL TABLET Take one by mouth daily OLANZAPINE 00942480137 No Longer Active Alina Castaneda MD PhD Active NOVOLOG 100 UNIT/ML SUBCUTANEOUS SOLUTION 40 units with every meal INSULIN ASPART 95833737116 No Longer Active Alina Castaneda MD PhD Active VERAPAMIL HCL ER 120 MG ORAL TABLET EXTENDED RELEASE 1 qPM 09/08 VERAPAMIL HCL 33616273526 No Longer Active Salina ROJAS Active ZYPREXA 15 MG ORAL TABLET Take 1 tablet by mouth daily OLANZAPINE 20988151265 No Longer Active Marvel MARROQUIN Active ALBUTEROL SULFATE (2.5 MG/3ML) 0.083% INHALATION NEBULIZATION SOLUTION 1 neb tid and prn cough ALBUTEROL SULFATE 81884232563 No Longer Active Alina Castaneda MD PhD Active LANTUS 100 UNIT/ML SUBCUTANEOUS SOLUTION 60 units sq q hs INSULIN GLARGINE 07922196029 No Longer Active CRYSTAL Suarez Active ALBUTEROL SULFATE (2.5 MG/3ML) 0.083% INHALATION NEBULIZATION SOLUTION 1 neb tid and prn cough ALBUTEROL SULFATE (2.5 MG/3ML) 0.083% INHALATION NEBULIZATION SOLUTION 421727 ALBUTEROL SULFATE Inactive ZYPREXA 15 MG ORAL TABLET Take 1 tablet by mouth daily ZYPREXA 15 MG ORAL TABLET 002571 OLANZAPINE Inactive VERAPAMIL HCL ER 120 MG ORAL TABLET EXTENDED RELEASE 1 qPM 09/08 VERAPAMIL HCL ER 120 MG ORAL TABLET EXTENDED RELEASE VERAPAMIL HCL Inactive ZYPREXA 10 MG ORAL TABLET Take one by mouth daily ZYPREXA 10 MG ORAL TABLET 641433 OLANZAPINE Inactive TOPROL XL 100 MG ORAL TABLET EXTENDED RELEASE 24 HOUR 1 @ HS TOPROL XL 100 MG ORAL TABLET EXTENDED RELEASE 24 HOUR METOPROLOL SUCCINATE Inactive LEVEMIR 100 UNIT/ML SUBCUTANEOUS SOLUTION 90 units SQ qHS LEVEMIR 100 UNIT/ML SUBCUTANEOUS SOLUTION INSULIN DETEMIR Inactive PROMETHAZINE-CODEINE 6.25-10 MG/5ML ORAL SYRUP 1 tsp po q 6 hours prn cough PROMETHAZINE-CODEINE 6.25-10 MG/5ML ORAL SYRUP 365482 PROMETHAZINE-CODEINE Inactive GUAIFENESIN ER 600 MG ORAL TABLET EXTENDED RELEASE 12 HOUR 1 tablet by mouth twice daily if needed for cough GUAIFENESIN ER 600 MG ORAL TABLET EXTENDED RELEASE 12 HOUR GUAIFENESIN Inactive ALBUTEROL SULFATE (2.5 MG/3ML) 0.083% INHALATION NEBULIZATION SOLUTION one vial per nebulizer TID and PRN cough/soa ALBUTEROL SULFATE (2.5 MG/3ML) 0.083% INHALATION NEBULIZATION SOLUTION 857491 ALBUTEROL SULFATE Inactive ZYPREXA 5 MG ORAL TABLET take one tablet by mouth every evening ZYPREXA 5 MG ORAL TABLET 550575 OLANZAPINE Inactive HYDROCODONE-ACETAMINOPHEN 5-325 MG ORAL TABLET take one tablet by mouth every four hours as needed for pain HYDROCODONE-ACETAMINOPHEN 5-325 MG ORAL TABLET 410419 HYDROCODONE-ACETAMINOPHEN Inactive BACTROBAN 2 % EXTERNAL CREAM apply to ear and nose twice daily BACTROBAN 2 % EXTERNAL CREAM 725493 MUPIROCIN CALCIUM Inactive CYCLOBENZAPRINE HCL 10 MG ORAL TABLET 1/2 tablet by mouth every 8 hours as needed for muscle spasms CYCLOBENZAPRINE HCL 10 MG ORAL TABLET 301961 CYCLOBENZAPRINE HCL Inactive NAVANE 10 MG CAPS 1/2 tablet twice a day NAVANE 10 MG CAPS THIOTHIXENE Inactive DOXEPIN HCL 10 MG ORAL CAPSULE Take 1 tablet by mouth daily DOXEPIN HCL 10 MG ORAL CAPSULE 6108720 DOXEPIN HCL Inactive HYDROCODONE-ACETAMINOPHEN 7.5-325 MG ORAL TABLET 1 four times a day as needed for pain HYDROCODONE-ACETAMINOPHEN 7.5-325 MG ORAL TABLET 268885 HYDROCODONE-ACETAMINOPHEN Inactive NIACIN ER 500 MG ORAL [...] hr. PRN ACETAMINOPHEN 500 MG ORAL TABLET 835287 ACETAMINOPHEN Inactive SAPHRIS 5 MG SUBLINGUAL TABLET SUBLINGUAL by mouth twice a day SAPHRIS 5 MG SUBLINGUAL TABLET SUBLINGUAL ASENAPINE MALEATE Inactive NIACIN ER 500 MG ORAL TABLET EXTENDED RELEASE 4 qHS (for triglycerides) 01/13 NIACIN ER 500 MG ORAL TABLET EXTENDED RELEASE NIACIN Inactive IBUPROFEN 200 MG ORAL TABLET 1 Q 6 hr. PRN IBUPROFEN 200 MG ORAL TABLET 565284 IBUPROFEN Inactive FLUTICASONE PROPIONATE 50 MCG/ACT NASAL SUSPENSION 2 sprays each nostril qDay x 30 days FLUTICASONE PROPIONATE 50 MCG/ACT NASAL SUSPENSION 2764219 FLUTICASONE PROPIONATE Inactive EQL TRUETEST TEST IN [...] at HS ZYPREXA 7.5 MG ORAL TABLET 338094 OLANZAPINE Inactive THIOTHIXENE 5 MG ORAL CAPSULE by mouth twice a day THIOTHIXENE 5 MG ORAL CAPSULE 872847 THIOTHIXENE Inactive UROXATRAL 10 MG ORAL TABLET EXTENDED RELEASE 24 HOUR Take 1 tablet by mouth daily UROXATRAL 10 MG ORAL TABLET EXTENDED RELEASE 24 HOUR ALFUZOSIN HCL Inactive ACYCLOVIR 400 MG ORAL TABLET 1 pill three times daily x 5 days, for cold sore outbreak ACYCLOVIR 400 MG ORAL TABLET 331807 ACYCLOVIR Inactive TRUETEST TEST IN VITRO STRIP check sugars 4x/day TRUETEST TEST IN VITRO STRIP GLUCOSE BLOOD Inactive HUMALOG 100 UNIT/ML SUBCUTANEOUS SOLUTION Take 20 units with breakfast, 10u with lunch and suppetr. HUMALOG 100 UNIT/ML SUBCUTANEOUS SOLUTION INSULIN LISPRO (HUMAN) Inactive CYCLOBENZAPRINE HCL 10 MG ORAL TABLET 1 tablet by mouth three times daily, scheduled CYCLOBENZAPRINE HCL 10 MG ORAL TABLET 132864 CYCLOBENZAPRINE HCL Inactive ACCU-CHEK ROSA IN VITRO STRIP use strips with device to check blood sugars 3 times daily ACCU-CHEK ROSA IN VITRO STRIP GLUCOSE BLOOD Inactive ACCU-CHEK ROSA DEVICE Use device to check blood sugars ACCU-CHEK ROSA DEVICE BLOOD GLUCOSE MONITORING SUPPL Inactive FLUVOXAMINE MALEATE 100 MG ORAL TABLET Take 1/2 tab at noon 03/04 FLUVOXAMINE MALEATE 100 MG ORAL TABLET 557593 FLUVOXAMINE MALEATE Inactive FLUVOXAMINE MALEATE 100 MG ORAL TABLET Take one (1) tablet by mouth am, 1/2 at noon FLUVOXAMINE MALEATE 100 MG ORAL TABLET 679209 FLUVOXAMINE MALEATE Inactive BACTROBAN 2 % EXTERNAL CREAM Apply to affected area BID for up to 10 days BACTROBAN 2 % EXTERNAL CREAM 009085 MUPIROCIN CALCIUM Inactive NOVOFINE 32G X 6 MM use one four times per day NOVOFINE 32G X 6 MM INSULIN PEN NEEDLE Inactive TRAZODONE HCL 100 MG ORAL TABLET 1 tab by mouth for sleep TRAZODONE HCL 100 MG ORAL TABLET 384831 TRAZODONE HCL Inactive LOVAZA 1 GM ORAL CAPSULE 4 daily (for triglycerides) LOVAZA 1 GM ORAL CAPSULE 124104 [id number] ETHYL ESTERS Inactive METFORMIN HCL ER 500 [...] bladder TOLTERODINE TARTRATE 2 MG ORAL TABLET 581885 TOLTERODINE TARTRATE Inactive COLACE 100 MG ORAL CAPSULE 1 pill by mouth twice daily, for constipation 2014 COLACE 100 MG ORAL CAPSULE 6580847 DOCUSATE SODIUM Inactive LOMOTIL 2.5-0.025 MG ORAL TABLET take 1-2 tabs PO after each stool, no more than 8 in 24 hours LOMOTIL 2.5-0.025 MG ORAL TABLET 1959065 DIPHENOXYLATE-ATROPINE Inactive ZOFRAN 4 MG ORAL TABLET 1 po q4hr PRN Nausea ZOFRAN 4 MG ORAL TABLET 282957 ONDANSETRON HCL Inactive HYDROCODONE-ACETAMINOPHEN 5-325 MG ORAL TABLET 2 tabs by mouth three times daily for pain HYDROCODONE-ACETAMINOPHEN 5-325 MG ORAL TABLET 276250 HYDROCODONE-ACETAMINOPHEN Inactive ZOLPIDEM TARTRATE 10 MG ORAL TABLET take at bedtime ZOLPIDEM TARTRATE 10 MG ORAL TABLET 863136 ZOLPIDEM TARTRATE Inactive LISINOPRIL 20 MG ORAL TABLET 1 BID LISINOPRIL 20 MG ORAL TABLET 960065 LISINOPRIL Inactive TRAVATAN Z 0.004 % OPHTHALMIC SOLUTION 1 gtt each eye daily TRAVATAN Z 0.004 % OPHTHALMIC SOLUTION TRAVOPROST Inactive LATUDA 60 MG ORAL TABLET Take one by mouth daily LATUDA 60 MG ORAL TABLET LURASIDONE HCL Inactive FLUVOXAMINE MALEATE 50 MG ORAL TABLET 1 tab by mouth daily 04/01 FLUVOXAMINE MALEATE 50 MG ORAL TABLET 966353 FLUVOXAMINE MALEATE Inactive LEVEMIR FLEXTOUCH 100 UNIT/ML [...] 30G 3 a day TRUEPLUS LANCETS 30G 09272121402 LANCETS Inactive AMITIZA 24 MCG ORAL CAPSULE [...] noon FLUVOXAMINE MALEATE 100 MG ORAL TABLET 854332 FLUVOXAMINE MALEATE Inactive FLONASE ALLERGY RELIEF 50 MCG/ACT NASAL SUSPENSION One spray each nostril BID x 1 week then daily FLONASE ALLERGY RELIEF 50 MCG/ACT NASAL SUSPENSION 9919174 FLUTICASONE PROPIONATE Inactive IMODIUM A-D 2 MG ORAL TABLET 1 tab QID as needed IMODIUM A-D 2 MG ORAL TABLET 042307 LOPERAMIDE HCL Inactive MYLANTA GAS RELIEF MAXIMUM STR 125 MG ORAL CAPSULE 30cc every 4 hours prn MYLANTA GAS RELIEF MAXIMUM STR 125 MG ORAL CAPSULE SIMETHICONE Inactive TRUEPLUS LANCETS 30G 3x a day TRUEPLUS LANCETS 30G 08241295537 LANCETS Inactive TRUE METRIX BLOOD GLUCOSE TEST [...] headaches TRAZODONE HCL 100 MG ORAL TABLET 968197 TRAZODONE HCL Inactive TYLENOL 8 HOUR 650 MG ORAL TABLET EXTENDED RELEASE 1 tab QID prn TYLENOL 8 HOUR 650 MG ORAL TABLET EXTENDED RELEASE ACETAMINOPHEN Inactive [facility] LUBRICANT EYE DROPS 0.4-0.3 % OPHTHALMIC SOLUTION [facility] LUBRICANT EYE DROPS 0.4-0.3 % OPHTHALMIC SOLUTION POLYETHYL GLYCOL- PROPYL GLYCOL Inactive CEFDINIR 300 MG ORAL CAPSULE by mouth twice a day CEFDINIR 300 MG ORAL CAPSULE 232630 CEFDINIR Inactive AZITHROMYCIN 500 MG INTRAVENOUS SOLUTION RECONSTITUTED 1 po q day AZITHROMYCIN 500 MG INTRAVENOUS SOLUTION RECONSTITUTED 33571024735 AZITHROMYCIN Inactive AMOXICILLIN 500 MG ORAL CAPSULE 2 po BID x 10 days AMOXICILLIN 500 MG ORAL CAPSULE 797631 AMOXICILLIN Inactive PENICILLIN V POTASSIUM 500 MG ORAL TABLET 1 pill by mouth three times daily PENICILLIN V POTASSIUM 500 MG ORAL TABLET 775848 PENICILLIN V POTASSIUM Inactive KEFLEX 500 MG ORAL CAPSULE 1 po BID x 7 days KEFLEX 500 MG ORAL CAPSULE 228148 CEPHALEXIN Inactive Immunizations Vaccine Administration Date Value [...] Fluvirin, Fluarix, Agriflu(>=18 yo)) Fluzone (>3 yrs.) [[id number]] Influenza, seasonal, injectable pneumococcal immunization administered Pneumovax [...] ... - Chemistry sodium, serum 135 mmol/L 896-530 1034/08/22 carbon dioxide, venous blood 28.4 mmol/L 21.0-32.0 [...] mg/g {creat} 0-29 cholesterol, serum 263 mg/dL 786-253 5511/08/22 triglyceride, serum, fasting 1312 mg/dL 30-200 HDL [...] ordered Encounters Code Encounter Date Provider Facility CPT-[id number] Level 3 Est. Patient 09:12:14 [employer] Mima Erazo APRN [facility][note 3] CPT-36005 Level 3 Est. Patient 16:52:51 CDT Vanessa Hickey MD [facility]-[id number] Level 3 Est. Patient 17:40:16 CDT Mima Erazo [facility] CPT-02059 Level 3 Est. Patient 14:34:52 CDT Vanessa Hickey MD [facility]-[id number] Level 3 Est. Patient 16:27:51 CDT Mima Erazo [facility]-12269 Level 3 Est. 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 Patient 18:43:34 CDT Mima Erazo [facility] CPT-42696 Level 3 Est. Patient 16:22:09 CDT Cherelle Avila [facility] CPT-67144 Level 4 Est. Patient 17:55:14 CDT [facility] Level 2 Est. Patient 17:13:21 CDT Alina Castaneda MD [facility]-02076 Level 3 Est. Patient 14:46:15 CDT Vanessa Hickey MD [facility]-87399 Level 3 Est. Patient 09:34:56 CDT Alina Castaneda MD [facility]-17060 Level 3 Est. Patient 21:40:19 CDT Mima Kacey [facility] CPT-38967 Level 3 Est. Patient 09:26:40 CDT [facility]-13652 Level 3 Est. Patient 12:36:43 CDT Vanessa Hickey MD [facility]-18925 Level 3 Est. Patient 12:57:49 CDT Vanessa Hickey MD [facility]-40059 Level 3 Est. Patient 00:28:25 CDT Alina Castaneda MD [facility]-19752 Level 2 Est. Patient 12:52:14 CDT Alina Castaneda MD [facility]83518 Level 3 Est. Patient 11:51:18 [employer]NAGER Alina Castaneda MD [facility]-33875 Level 3 Est. Patient 10:09:22 [employer] MANAGER Alina Castaneda MD [facility]16811 Level 3 Est. Patient 14:36:26 [employer]ES MANAGER [facility]02796 Level 3 Est. Patient 13:34:47 [employer] SALES MANAGER Alina Castaneda MD [facility]92409 Level 3 Est. Patient 19:52:08 [employer] SALES MANAGER Alina Castaneda MD [facility]88571 Level 3 Est. Patient 10:01:51 [employer] SALES MANAGER [facility]-34523 Level 3 Est. Patient 21:54:06 CDT Vanessa Hickey MD [facility]-16943 Level 3 Est. Patient 08:54:46 CDT Alina Castaneda MD [facility]-15257 Level 3 Est. Patient 09:32:11 CDT Marvel [facility]-98280 Level 3 Est. Patient 12:02:49 CDT Alina Castaneda MD [facility]63317 Level 3 Est. Patient 19:17:33 CDT Alina Castaneda MD [facility]02029 Level 3 Est. Patient 13:19:10 CDT Marvel [facility]-61069 Level 3 Est. Patient 08:20:05 CDT Alina Castaneda MD [facility]-71574 Level 3 Est. Patient 15:17:18 CDT Alina Castaneda MD [facility]-23985 Level 3 Est. Patient 14:25:36 [employer] MANAGER Marvel [facility]-53604 Level 3 Est. Patient 10:09:15 [employer] MANAGER [place] [facility]-43096 Level 3 Est. Patient 21:28:43 CDT Alina Castaneda MD [facility]-49944 Level 3 Est. Patient 15:20:11 CDT [facility] Level 4 Est. Patient 19:08:12 CDT Alina Castaneda MD [facility]-80084 Level 3 Est. Patient 15:06:39 CDT [facility]29542 Level 4 Est. Patient 17:48:15 CDT Alina Castaneda MD [facility]-15041 Level 3 Est. Patient 14:53:49 CDT Ailna Castaneda MD [facility]-59941 Level 3 Est. Patient 09:35:16 CDT Alina Castaneda MD [facility]-19925 Level 3 Est. Patient 12:23:22 CDT Alina Castaneda MD [facility]-92101 Level 3 Est. Patient 16:19:15 CDT Alina Castaneda MD [facility]-17794 Level 3 Est. Patient 21:39:56 [employer] MANAGER Alina Castaneda MD [facility]-19133 Level 4 Est. Patient 14:12:56 [employer] MANAGER Alina Castaneda MD [facility]-37192 Level 2 Est. Patient 15:34:57 [employer] MANAGER Alina Castaneda MD [facility]-14943 Level 3 Est. Patient 12:17:04 [employer] MANAGER Alina Castaneda MD [facility]17251 Level 3 Est. Patient 09:18:18 [employer] MANAGER [facility]-17474 Level 2 Est. Patient 21:50:24 CDT Alina Castaneda MD [facility]49366 Level 3 Est. Patient 09:17:28 CDT Marvel [facility]-17126 Level 4 Est. Patient 18:54:02 CDT Alina Castaneda MD [facility]-02938 Level 3 Est. Patient 10:47:10 CDT Alina Castaneda MD [facility]-91266 Level 3 Est. Patient 09:22:20 CDT Marvel [facility]-35048 Level 3 Est. Patient 16:39:43 CDT Marvel [facility]-28556 Level 3 Est. Patient 16:05:16 CDT Alina Castaneda MD [facility]-15612 Level 3 Est. Patient 00:29:15 CDT Alina Castaneda MD [facility]-02074 Level 3 Est. Patient 10:49:22 [employer] MANAGER [facility]-40107 Level 3 Est. Patient 21:30:19 [employer] MANAGER Alina Castaenda MD [facility]44862 Level 4 Est. Patient 17:04:11 [employer] MANAGER [facility] CPT-66910 Level 3 Est. Patient 15:34:11 [employer] SALES MANAGER [facility] CPT-15528 Level 2 Est. Patient 12:51:58 [employer] MANAGER Alina Castaneda MD PhD [facility] CPT-01427 Level 3 Est. Patient 13:20:01 [employer] MANAGER Alina Castaneda MD PhD [facility] CPT-32317 Level 3 Est. Patient 09:23:35 CDT Alina Castaneda MD PhD [facility] Procedures Code Procedure Name Date Entry Date Standard Description CPT-TCMM Transitional Care Mgmt-Moderate 12:32:19 CDT CPT-60016 Level 2 Chcf 09:01:11 CDT CPT-29892 HGBA1C - LAB USE ONLY 09:30:27 [employer] MANAGER CPT-10909 BMP - LAB USE ONLY 09:30:27 [employer] MANAGER CPT-09625 Venipuncture Draw Fee 09:30:26 [employer] MANAGER CPT-TCMM Transitional Care Mgmt-Moderate 10:25:31 CDT CPT-70005 Bladder Scan 14:34:53 CDT CPT-63274 Bladder Scan 14:39:01 [employer] MANAGER CPT-TCMM Transitional Care Mgmt-Moderate 10:30:19 [employer]NAGER CPT-09182 Bladder Scan 12:36:44 CDT CPT-11960 Bladder Scan 21:54:06 CDT CPT-G0008 Administration of Influenza Virus Vaccine 13:05:26 CDT CPT-99637 Fluzone Quadrivalent Intramuscular Suspension 0.5 ML 13: 05:26 CDT CPT-88276 Administration single or combination vaccine inc oral 11 :49:51 CDT CPT-50357 Pneumovax 11:49:51 CDT CPT-75828 Ribs unilateral 2V 12:37:22 [employer]GER CPT-48078 Chest 2V Frontal and Lat 17:15:26 CDT CPT-26433 Abx/Therapy Injection 18:54:02 CDT CPT-J0696 Rocephin 1000 mg (Ceftriaxone) 16:00:32 CDT CPT-72731 Chest 2V Frontal and Lat 15:26:45 CDT CPT-91333 Chest 2V Frontal and Lat 10:23:27 CDT CPT-40715 Venipuncture Draw Fee 10:11:00 CDT CPT-92287 Administration single or combination vaccine inc oral 11 :56:38 CDT CPT-17126 Influenza split virus > age 3 11:56:38 CDT CPT-02662 Venipuncture Draw Fee 08:49:54 [employer] MANAGER CPT-60223 EKG Trac and Interp 17:54:19 [employer] SALES MANAGER
--- OUTSIDE RECORDS SUMMARY | 2018-07-02 13:03 | XMS REPORT | Clinical Summary ---
Author Author Admin, TERELL Organization [facility] [facility] Address Unknown Phone Unavailable Allergies, Adverse Reactions, [...] mellitus, type II 250.00 Active Marvel Thurstonari MANAGEMENT DEPARTMENT CHAIR Diabetes mellitus without mention of complication, type [...] tablet by mouth at bedtime QUETIAPINE FUMARATE 51839159843 Active Mason Loredo MD Active OCEAN NASAL SPRAY SOLUTION 2 sprays in both nostrils every 8 hours as needed for dry mucous membranes SALINE SOLN 48946534706 Active Mason Loredo MD Active BETHANECHOL CHLORIDE 25 MG ORAL TABLET Take 1 tablet mouth four times a day BETHANECHOL CHLORIDE 77642012459 Active Mason Loredo MD Active [facility] LUBRICANT EYE DROPS 0.4-0.3 % OPHTHALMIC SOLUTION POLYETHYL GLYCOL-PROPYL GLYCOL 60839302383 No Longer Active Mason Loredo MD Active TYLENOL 8 HOUR 650 MG ORAL TABLET EXTENDED RELEASE 1 tab QID prn ACETAMINOPHEN 89689966924 No Longer Active Mason Loredo MD Active TOPAMAX 25 MG ORAL TABLET 1 tab BID PRN TOPIRAMATE 87385100736 Active Mason Loredo MD Active TIMOPTIC OCUDOSE 0.5 % OPHTHALMIC SOLUTION instill one drop into both eyes q12H TIMOLOL MALEATE 86172860254 Active Mason Loredo MD Active TRAZODONE HCL 100 MG ORAL TABLET 1 every night to prevent headaches TRAZODONE HCL 65654056729 No Longer Active Mason Loredo MD Active TRAVATAN Z 0.004 % OPHTHALMIC SOLUTION 1 drop each eye daily 2017 TRAVOPROST 29768995265 No Longer Active Mason Loredo MD Active LATUDA 60 MG ORAL TABLET 1 tab daily LURASIDONE HCL 09390878616 No Longer Active Mason Loredo MD Active MORPHINE SULFATE ER 30 MG ORAL TABLET EXTENDED RELEASE Take one capsule BID MORPHINE SULFATE 62128648415 No Longer Active Mason Loredo MD Active TRUE METRIX BLOOD GLUCOSE TEST IN VITRO STRIP Check blood sugars 3x/day. 2015 GLUCOSE BLOOD 41507207604 No Longer Active Mason Loredo MD Active TRUEPLUS LANCETS 30G 3x a day LANCETS 32909434064 No Longer Active Mason Loredo MD Active MYLANTA GAS RELIEF MAXIMUM STR 125 MG ORAL CAPSULE 30cc every 4 hours prn SIMETHICONE 36440716071 No Longer Active Mason Loredo MD Active IMODIUM A-D 2 MG ORAL TABLET 1 tab QID as needed LOPERAMIDE HCL 24026519563 No Longer Active Mason Loredo MD Active FLONASE ALLERGY RELIEF 50 MCG/ACT NASAL SUSPENSION One spray each nostril BID x 1 week then daily FLUTICASONE PROPIONATE 73527037694 No Longer Active Mason Loredo MD Active FLUVOXAMINE MALEATE 100 MG ORAL TABLET take one tab every AM et HS, and take 1 /2 tab at noon FLUVOXAMINE MALEATE 89583045540 No Longer Active Mason Loredo MD Active BD PEN NEEDLE MINI U/F 31G X 5 MM 4 a day INSULIN PEN NEEDLE 57689212298 No Longer Active Mason Loredo MD Active AMITIZA 24 MCG ORAL CAPSULE Take one capsule BID for constipation LUBIPROSTONE 63254400198 No Longer Active Mason Loredo MD Active TRUEPLUS LANCETS 30G 3 a day LANCETS 16146776550 No Longer Active Mason Loredo MD Active CORICIDIN HBP CONGESTION/COUGH 10-200 MG ORAL CAPSULE Take as directed on box as needed for cold/flu symptoms DEXTROMETHORPHAN- GUAIFENESIN 74440061663 No Longer Active Mason Loredo MD Active OMEGA-3 300 MG ORAL CAPSULE 4 caps by mouth daily OMEGA-3 FATTY ACIDS 54816565008 No Longer Active Mason Loredo MD Active HUMALOG KWIKPEN 100 UNIT/ML SUBCUTANEOUS SOLUTION PEN-INJECTOR sliding scale if needed INSULIN LISPRO (HUMAN) 99763920432 No Longer Active Mason Loredo MD Active TRUETEST TEST IN VITRO STRIP check blood sugars 3x/day GLUCOSE BLOOD 12316589719 No Longer Active Mason Loredo MD Active ALFUZOSIN HCL ER 10 MG ORAL TABLET EXTENDED RELEASE 24 HOUR 1 tablet daily ALFUZOSIN HCL 08031927277 No Longer Active Mason Loredo MD Active BD INSULIN SYRINGE 28G X 1/2" 1 ML 1 four times per day INSULIN SYRINGE-NEEDLE U-100 99969812786 No Longer Active Mason Loredo MD Active LEVEMIR FLEXTOUCH 100 UNIT/ML SUBCUTANEOUS SOLUTION PEN-INJECTOR 60 units SQ each evening, for diabetes INSULIN DETEMIR 42866985787 No Longer Active Mason Loredo MD Active METFORMIN HCL ER (MOD) 500 MG ORAL TABLET EXTENDED RELEASE 24 HOUR give two tabs PO BID METFORMIN HCL 11883393113 Active Mason Loredo MD Active LACTULOSE 20 GM/30ML ORAL SOLUTION give 30 Ml PO BID PRN LACTULOSE 32625843259 Active Mason Loredo MD Active COLACE 100 MG ORAL CAPSULE 1 tab BID PRN DOCUSATE SODIUM 71825919013 Active Mason Loredo MD Active TAMSULOSIN HCL 0.4 MG ORAL CAPSULE give 2 capsules PO each evening TAMSULOSIN HCL 65523645785 Active Mason Loredo MD Active [facility] MELATONIN 3 MG ORAL TABLET give 1 tab by mouth at HS MELATONIN 33319566980 Active Mason Loredo MD Active LATANOPROST 0.005 % OPHTHALMIC SOLUTION instill 1 drop in both eyes at bed time LATANOPROST 99266285360 Active Mason Loredo MD Active AMARYL 2 MG ORAL TABLET give 2.5 tabs PO daily GLIMEPIRIDE 73711594618 Active Mason Loredo MD Active MIRALAX ORAL POWDER 17g by mouth q12h, for constipation POLYETHYLENE GLYCOL 3350 56947364142 Active Mason Loredo MD Active IBUPROFEN 400 MG ORAL TABLET 1 tab Q6H PRN IBUPROFEN 45060424723 Active Mason Loredo MD Active EFFEXOR XR 37.5 MG ORAL CAPSULE EXTENDED RELEASE 24 HOUR Take one by mouth daily VENLAFAXINE HCL 94720389183 Active Mima Erazo APRN Active FLUVOXAMINE MALEATE 50 MG ORAL TABLET 1 tab by mouth daily 04/01 FLUVOXAMINE MALEATE 95259973369 No Longer Active Mima Erazo APRN Active TRUE METRIX METER w/Device KIT Check blood sugars 3x/day BLOOD GLUCOSE MONITORING SUPPL 57281458631 Active Marvel MARROQUIN Active VITAMIN D 2000 UNIT ORAL CAPSULE Take one by mouth daily CHOLECALCIFEROL 32807296635 Active Mima Erazo APRN Active LATUDA 60 MG ORAL TABLET Take one by mouth daily LURASIDONE HCL 07198581863 No Longer Active Mima Erazo APRN Active CLONAZEPAM 1 MG ORAL TABLET 1 pill by mouth three times daily CLONAZEPAM 13218311323 Active Rhett Luther DO Active [facility] MILK OF MAGNESIA 400 MG/5ML ORAL SUSPENSION 30ml by mouth bid prn MAGNESIUM HYDROXIDE 12418436511 Active Mason Loredo MD Active TRAVATAN Z 0.004 % OPHTHALMIC SOLUTION 1 gtt each eye daily TRAVOPROST 53648578147 No Longer Active Mason Loredo MD Active LISINOPRIL 20 MG ORAL TABLET 1 BID LISINOPRIL 17755777821 No Longer Active Mason Loredo MD Active ZOLPIDEM TARTRATE 10 MG ORAL TABLET take at bedtime ZOLPIDEM TARTRATE 15967015529 No Longer Active Mason Loredo MD Active HYDROCODONE-ACETAMINOPHEN 5-325 MG ORAL TABLET 2 tabs by mouth three times daily for pain HYDROCODONE-ACETAMINOPHEN 98896737930 No Longer Active Mason Loredo MD Active ZOFRAN 4 MG ORAL TABLET 1 po q4hr PRN Nausea ONDANSETRON HCL 60620542327 No Longer Active Mason Loredo MD Active LOMOTIL 2.5-0.025 MG ORAL TABLET take 1-2 tabs PO after each stool, no more than 8 in 24 hours DIPHENOXYLATE-ATROPINE 21855781196 No Longer Active Mason Loredo MD Active COLACE 100 MG ORAL CAPSULE 1 pill by mouth twice daily, for constipation 2014 DOCUSATE SODIUM 07302861993 No Longer Active Mima Erazo APRN Active TOLTERODINE TARTRATE 2 MG ORAL TABLET 1 pill twice daily, for bladder TOLTERODINE TARTRATE 92747798786 No Longer Active Vanessa Hickey MD Active AMITIZA 24 MCG ORAL CAPSULE Take one capsule BID for constipation. LUBIPROSTONE 74757812453 No Longer Active Vanessa Hickey MD Active METOPROLOL SUCCINATE ER 100 MG ORAL TABLET EXTENDED RELEASE 24 HOUR 1 by mouth daily for blood pressure METOPROLOL SUCCINATE 73247939881 No Longer Active Grace Azam RMA Active METFORMIN HCL ER 500 MG ORAL TABLET EXTENDED RELEASE 24 HOUR Take three tablets by mouth everyday METFORMIN HCL 31695429142 No Longer Active Grace Azam RMA Active LOVAZA 1 GM ORAL CAPSULE 4 daily (for triglycerides) [id number] ETHYL ESTERS 53464543635 No Longer Active Grace Azam RMA Active TRAZODONE HCL 100 MG ORAL TABLET 1 tab by mouth for sleep TRAZODONE HCL 44420223610 No Longer Active Grace Azam RMA Active NOVOFINE 32G X 6 MM use one four times per day INSULIN PEN NEEDLE 32716737183 No Longer Active Grace Azam RMA Active BACTROBAN 2 % EXTERNAL CREAM Apply to affected area BID for up to 10 days MUPIROCIN CALCIUM 23250051720 No Longer Active Grace Azam RMA Active KEFLEX 500 MG ORAL CAPSULE 1 po BID x 7 days CEPHALEXIN 16736535915 No Longer Active Cherelle Avila APRN Active FLUVOXAMINE MALEATE 100 MG ORAL TABLET Take one (1) tablet by mouth am, 1/2 at noon FLUVOXAMINE MALEATE 13897970705 No Longer Active Mima Erazo APRN Active FLUVOXAMINE MALEATE 100 MG ORAL TABLET Take 1/2 tab at noon 03/04 FLUVOXAMINE MALEATE 32986721279 No Longer Active Cherelle Avila ALBAN Active ACCU-CHEK ROSA DEVICE Use device to check blood sugars BLOOD GLUCOSE MONITORING SUPPL 84008491467 No Longer Active Marvel MARROQUIN Active ACCU-CHEK ROSA IN VITRO STRIP use strips with device to check blood sugars 3 times daily GLUCOSE BLOOD 19936517659 No Longer Active Marvel MARROQUIN Active VERAPAMIL HCL ER 180 MG ORAL TABLET EXTENDED RELEASE 1 pill by mouth twice daily, for migraine prevention VERAPAMIL HCL 61830384216 Active Mimacecily Erazo APRN Active CYCLOBENZAPRINE HCL 10 MG ORAL TABLET 1 tablet by mouth three times daily, scheduled CYCLOBENZAPRINE HCL 09953055460 No Longer Active Alina Castaneda MD PhD Active HUMALOG 100 UNIT/ML SUBCUTANEOUS SOLUTION Take 20 units with breakfast, 10u with lunch and suppetr. INSULIN LISPRO (HUMAN) 99766840895 No Longer Active Alina Castaneda MD PhD Active TRUETEST TEST IN VITRO STRIP check sugars 4x/day GLUCOSE BLOOD 15659448737 No Longer Active Alina Castaneda MD PhD Active MORPHINE SULFATE 30 MG ORAL TABLET 1 pill by mouth twice daily, for pain 2013 MORPHINE SULFATE 26234712532 No Longer Active Mason Loredo MD Active ACYCLOVIR 400 MG ORAL TABLET 1 pill three times daily x 5 days, for cold sore outbreak ACYCLOVIR 53117373475 No Longer Active Alina Castaneda MD PhD Active PENICILLIN V POTASSIUM 500 MG ORAL TABLET 1 pill by mouth three times daily PENICILLIN V POTASSIUM 92037884630 No Longer Active Alina Castaneda MD PhD Active UROXATRAL 10 MG ORAL TABLET EXTENDED RELEASE 24 HOUR Take 1 tablet by mouth daily ALFUZOSIN HCL 94892119721 No Longer Active Alina Castaneda MD PhD Active THIOTHIXENE 5 MG ORAL CAPSULE by mouth twice a day THIOTHIXENE 12091642470 No Longer Active Alina Castaneda MD PhD Active ZYPREXA 7.5 MG ORAL TABLET 1 at HS OLANZAPINE 63932872872 No Longer Active Alina Castaneda MD PhD Active DETROL LA 4 MG ORAL CAPSULE EXTENDED RELEASE 24 HOUR Take 1 tablet by mouth daily TOLTERODINE TARTRATE 38953574781 No Longer Active Alina Castaneda MD PhD Active TERESE CONTOUR TEST IN VITRO STRIP monitor blood sugars 3x/day GLUCOSE BLOOD 45606294422 No Longer Active Alina Castaneda MD PhD Active EQL TRUETEST TEST IN VITRO STRIP Test blood sugar TID GLUCOSE BLOOD 71256172893 No Longer Active Alina Castaneda MD PhD Active FLUTICASONE PROPIONATE 50 MCG/ACT NASAL SUSPENSION 2 sprays each nostril qDay x 30 days FLUTICASONE PROPIONATE 65959814353 No Longer Active Alina Castaneda MD PhD Active IBUPROFEN 200 MG ORAL TABLET 1 Q 6 hr. PRN IBUPROFEN 52737269697 No Longer Active Alina Castaneda MD PhD Active NIACIN ER 500 MG ORAL TABLET EXTENDED RELEASE 4 qHS (for triglycerides) 01/13 NIACIN 10875669283 No Longer Active Alina Castaneda MD PhD Active SAPHRIS 5 MG SUBLINGUAL TABLET SUBLINGUAL by mouth twice a day ASENAPINE MALEATE 19583951294 No Longer Active Maliheh Ziglari MANAGEMENT DEPARTMENT CHAIR Active ACETAMINOPHEN 500 MG ORAL TABLET 2 Q 6 hr. PRN ACETAMINOPHEN 56199356831 No Longer Active Maliheh Ziglari MANAGEMENT DEPARTMENT CHAIR Active ORPHENADRINE CITRATE ER 100 MG ORAL TABLET EXTENDED RELEASE 12 HOUR 1 every 12 hr. as needed ORPHENADRINE CITRATE 30112536343 No Longer Active Alina Castaneda MD PhD Active NIACIN ER 500 MG ORAL TABLET EXTENDED RELEASE 2 qHS NIACIN 91333648156 No Longer Active Alina Castaneda MD PhD Active AMOXICILLIN 500 MG ORAL CAPSULE 2 po BID x 10 days AMOXICILLIN 27365028504 No Longer Active Alina Castaneda MD PhD Active HYDROCODONE-ACETAMINOPHEN 7.5-325 MG ORAL TABLET 1 four times a day as needed for pain HYDROCODONE-ACETAMINOPHEN 01257927490 No Longer Active Alina Castaneda MD PhD Active DOXEPIN HCL 10 MG ORAL CAPSULE Take 1 tablet by mouth daily DOXEPIN HCL 71659095170 No Longer Active Salina Han A Active NAVANE 10 MG CAPS 1/2 tablet twice a day THIOTHIXENE No Longer Active Salina Han A Active CYCLOBENZAPRINE HCL 10 MG ORAL TABLET 1/2 tablet by mouth every 8 hours as needed for muscle spasms CYCLOBENZAPRINE HCL 39592452161 No Longer Active Alina Castaneda MD PhD Active BACTROBAN 2 % EXTERNAL CREAM apply to ear and nose twice daily MUPIROCIN CALCIUM 15142572057 No Longer Active Alina Castaneda MD PhD Active HYDROCODONE-ACETAMINOPHEN 5-325 MG ORAL TABLET take one tablet by mouth every four hours as needed for pain HYDROCODONE-ACETAMINOPHEN 62778292613 No Longer Active Alina Castaneda MD PhD Active ZYPREXA 5 MG ORAL TABLET take one tablet by mouth every evening OLANZAPINE 92450497061 No Longer Active Alina Castaneda MD PhD Active ALBUTEROL SULFATE (2.5 MG/3ML) 0.083% INHALATION NEBULIZATION SOLUTION one vial per nebulizer TID and PRN cough/soa ALBUTEROL SULFATE 16379873623 No Longer Active Alina Castaneda MD PhD Active GUAIFENESIN ER 600 MG ORAL TABLET EXTENDED RELEASE 12 HOUR 1 tablet by mouth twice daily if needed for cough GUAIFENESIN 43110001588 No Longer Active Marvel MARROQUIN Active AZITHROMYCIN 500 MG INTRAVENOUS SOLUTION RECONSTITUTED 1 po q day AZITHROMYCIN 43080903770 No Longer Active Alina Castaneda MD PhD Active PROMETHAZINE-CODEINE 6.25-10 MG/5ML ORAL SYRUP 1 tsp po q 6 hours prn cough PROMETHAZINE-CODEINE 48770105964 No Longer Active Alina Castaneda MD PhD Active CEFDINIR 300 MG ORAL CAPSULE by mouth twice a day CEFDINIR 40132148726 No Longer Active Alina Castaneda MD PhD Active METFORMIN HCL ER 500 MG ORAL TABLET EXTENDED RELEASE 24 HOUR Take 3 tablets by mouth everyday METFORMIN HCL 70325572684 No Longer Active Alina Castaneda MD PhD Active LEVEMIR 100 UNIT/ML SUBCUTANEOUS SOLUTION 90 units SQ qHS INSULIN DETEMIR 91121837653 No Longer Active Marvel MARROQUIN Active TOPROL XL 100 MG ORAL TABLET EXTENDED RELEASE 24 HOUR 1 @ HS METOPROLOL SUCCINATE 42990426036 No Longer Active Marvel MARROQUIN Active ALLOPURINOL 300 MG ORAL TABLET Take one by mouth daily ALLOPURINOL 20228061718 Active Mima Erazo MATCH UP PERSON Active ZYPREXA 10 MG ORAL TABLET Take one by mouth daily OLANZAPINE 22698718878 No Longer Active Alina Castaneda MD PhD Active NOVOLOG 100 UNIT/ML SUBCUTANEOUS SOLUTION 40 units with every meal INSULIN ASPART 21321973364 No Longer Active Alina Castaneda MD PhD Active VERAPAMIL HCL ER 120 MG ORAL TABLET EXTENDED RELEASE 1 qPM 09/08 VERAPAMIL HCL 87758123774 No Longer Active Salina ROJAS Active ZYPREXA 15 MG ORAL TABLET Take 1 tablet by mouth daily OLANZAPINE 92554025795 No Longer Active Marvel MARROQUIN Active ALBUTEROL SULFATE (2.5 MG/3ML) 0.083% INHALATION NEBULIZATION SOLUTION 1 neb tid and prn cough ALBUTEROL SULFATE 10614213366 No Longer Active Alina Castaneda MD PhD Active LANTUS 100 UNIT/ML SUBCUTANEOUS SOLUTION 60 units sq q hs INSULIN GLARGINE 91686051527 No Longer Active CRYSTAL Suarez Active ALBUTEROL SULFATE (2.5 MG/3ML) 0.083% INHALATION NEBULIZATION SOLUTION 1 neb tid and prn cough ALBUTEROL SULFATE (2.5 MG/3ML) 0.083% INHALATION NEBULIZATION SOLUTION 419153 ALBUTEROL SULFATE Inactive ZYPREXA 15 MG ORAL TABLET Take 1 tablet by mouth daily ZYPREXA 15 MG ORAL TABLET 900226 OLANZAPINE Inactive VERAPAMIL HCL ER 120 MG ORAL TABLET EXTENDED RELEASE 1 qPM 09/08 VERAPAMIL HCL ER 120 MG ORAL TABLET EXTENDED RELEASE VERAPAMIL HCL Inactive ZYPREXA 10 MG ORAL TABLET Take one by mouth daily ZYPREXA 10 MG ORAL TABLET 460454 OLANZAPINE Inactive TOPROL XL 100 MG ORAL TABLET EXTENDED RELEASE 24 HOUR 1 @ HS TOPROL XL 100 MG ORAL TABLET EXTENDED RELEASE 24 HOUR METOPROLOL SUCCINATE Inactive LEVEMIR 100 UNIT/ML SUBCUTANEOUS SOLUTION 90 units SQ qHS LEVEMIR 100 UNIT/ML SUBCUTANEOUS SOLUTION INSULIN DETEMIR Inactive PROMETHAZINE-CODEINE 6.25-10 MG/5ML ORAL SYRUP 1 tsp po q 6 hours prn cough PROMETHAZINE-CODEINE 6.25-10 MG/5ML ORAL SYRUP 762155 PROMETHAZINE-CODEINE Inactive GUAIFENESIN ER 600 MG ORAL TABLET EXTENDED RELEASE 12 HOUR 1 tablet by mouth twice daily if needed for cough GUAIFENESIN ER 600 MG ORAL TABLET EXTENDED RELEASE 12 HOUR GUAIFENESIN Inactive ALBUTEROL SULFATE (2.5 MG/3ML) 0.083% INHALATION NEBULIZATION SOLUTION one vial per nebulizer TID and PRN cough/soa ALBUTEROL SULFATE (2.5 MG/3ML) 0.083% INHALATION NEBULIZATION SOLUTION 199244 ALBUTEROL SULFATE Inactive ZYPREXA 5 MG ORAL TABLET take one tablet by mouth every evening ZYPREXA 5 MG ORAL TABLET 059184 OLANZAPINE Inactive HYDROCODONE-ACETAMINOPHEN 5-325 MG ORAL TABLET take one tablet by mouth every four hours as needed for pain HYDROCODONE-ACETAMINOPHEN 5-325 MG ORAL TABLET 841761 HYDROCODONE-ACETAMINOPHEN Inactive BACTROBAN 2 % EXTERNAL CREAM apply to ear and nose twice daily BACTROBAN 2 % EXTERNAL CREAM 588574 MUPIROCIN CALCIUM Inactive CYCLOBENZAPRINE HCL 10 MG ORAL TABLET 1/2 tablet by mouth every 8 hours as needed for muscle spasms CYCLOBENZAPRINE HCL 10 MG ORAL TABLET 710993 CYCLOBENZAPRINE HCL Inactive NAVANE 10 MG CAPS 1/2 tablet twice a day NAVANE 10 MG CAPS THIOTHIXENE Inactive DOXEPIN HCL 10 MG ORAL CAPSULE Take 1 tablet by mouth daily DOXEPIN HCL 10 MG ORAL CAPSULE 2992910 DOXEPIN HCL Inactive HYDROCODONE-ACETAMINOPHEN 7.5-325 MG ORAL TABLET 1 four times a day as needed for pain HYDROCODONE-ACETAMINOPHEN 7.5-325 MG ORAL TABLET 300891 HYDROCODONE-ACETAMINOPHEN Inactive NIACIN ER 500 MG ORAL [...] hr. PRN ACETAMINOPHEN 500 MG ORAL TABLET 376890 ACETAMINOPHEN Inactive SAPHRIS 5 MG SUBLINGUAL TABLET SUBLINGUAL by mouth twice a day SAPHRIS 5 MG SUBLINGUAL TABLET SUBLINGUAL ASENAPINE MALEATE Inactive NIACIN ER 500 MG ORAL TABLET EXTENDED RELEASE 4 qHS (for triglycerides) 01/13 NIACIN ER 500 MG ORAL TABLET EXTENDED RELEASE NIACIN Inactive IBUPROFEN 200 MG ORAL TABLET 1 Q 6 hr. PRN IBUPROFEN 200 MG ORAL TABLET 135734 IBUPROFEN Inactive FLUTICASONE PROPIONATE 50 MCG/ACT NASAL SUSPENSION 2 sprays each nostril qDay x 30 days FLUTICASONE PROPIONATE 50 MCG/ACT NASAL SUSPENSION 2435072 FLUTICASONE PROPIONATE Inactive EQL TRUETEST TEST IN [...] at HS ZYPREXA 7.5 MG ORAL TABLET 769733 OLANZAPINE Inactive THIOTHIXENE 5 MG ORAL CAPSULE by mouth twice a day THIOTHIXENE 5 MG ORAL CAPSULE 185756 THIOTHIXENE Inactive UROXATRAL 10 MG ORAL TABLET EXTENDED RELEASE 24 HOUR Take 1 tablet by mouth daily UROXATRAL 10 MG ORAL TABLET EXTENDED RELEASE 24 HOUR ALFUZOSIN HCL Inactive ACYCLOVIR 400 MG ORAL TABLET 1 pill three times daily x 5 days, for cold sore outbreak ACYCLOVIR 400 MG ORAL TABLET 143647 ACYCLOVIR Inactive TRUETEST TEST IN VITRO STRIP check sugars 4x/day TRUETEST TEST IN VITRO STRIP GLUCOSE BLOOD Inactive HUMALOG 100 UNIT/ML SUBCUTANEOUS SOLUTION Take 20 units with breakfast, 10u with lunch and suppetr. HUMALOG 100 UNIT/ML SUBCUTANEOUS SOLUTION INSULIN LISPRO (HUMAN) Inactive CYCLOBENZAPRINE HCL 10 MG ORAL TABLET 1 tablet by mouth three times daily, scheduled CYCLOBENZAPRINE HCL 10 MG ORAL TABLET 913448 CYCLOBENZAPRINE HCL Inactive ACCU-CHEK ROSA IN VITRO STRIP use strips with device to check blood sugars 3 times daily ACCU-CHEK ROSA IN VITRO STRIP GLUCOSE BLOOD Inactive ACCU-CHEK ROSA DEVICE Use device to check blood sugars ACCU-CHEK ROSA DEVICE BLOOD GLUCOSE MONITORING SUPPL Inactive FLUVOXAMINE MALEATE 100 MG ORAL TABLET Take 1/2 tab at noon 03/04 FLUVOXAMINE MALEATE 100 MG ORAL TABLET 532893 FLUVOXAMINE MALEATE Inactive FLUVOXAMINE MALEATE 100 MG ORAL TABLET Take one (1) tablet by mouth am, 1/2 at noon FLUVOXAMINE MALEATE 100 MG ORAL TABLET 614067 FLUVOXAMINE MALEATE Inactive BACTROBAN 2 % EXTERNAL CREAM Apply to affected area BID for up to 10 days BACTROBAN 2 % EXTERNAL CREAM 700175 MUPIROCIN CALCIUM Inactive NOVOFINE 32G X 6 MM use one four times per day NOVOFINE 32G X 6 MM INSULIN PEN NEEDLE Inactive TRAZODONE HCL 100 MG ORAL TABLET 1 tab by mouth for sleep TRAZODONE HCL 100 MG ORAL TABLET 197181 TRAZODONE HCL Inactive LOVAZA 1 GM ORAL CAPSULE 4 daily (for triglycerides) LOVAZA 1 GM ORAL CAPSULE 793951 [id number] ETHYL ESTERS Inactive METFORMIN HCL ER 500 [...] bladder TOLTERODINE TARTRATE 2 MG ORAL TABLET 223045 TOLTERODINE TARTRATE Inactive COLACE 100 MG ORAL CAPSULE 1 pill by mouth twice daily, for constipation 2014 COLACE 100 MG ORAL CAPSULE 2106017 DOCUSATE SODIUM Inactive LOMOTIL 2.5-0.025 MG ORAL TABLET take 1-2 tabs PO after each stool, no more than 8 in 24 hours LOMOTIL 2.5-0.025 MG ORAL TABLET 0416607 DIPHENOXYLATE-ATROPINE Inactive ZOFRAN 4 MG ORAL TABLET 1 po q4hr PRN Nausea ZOFRAN 4 MG ORAL TABLET 848113 ONDANSETRON HCL Inactive HYDROCODONE-ACETAMINOPHEN 5-325 MG ORAL TABLET 2 tabs by mouth three times daily for pain HYDROCODONE-ACETAMINOPHEN 5-325 MG ORAL TABLET 081858 HYDROCODONE-ACETAMINOPHEN Inactive ZOLPIDEM TARTRATE 10 MG ORAL TABLET take at bedtime ZOLPIDEM TARTRATE 10 MG ORAL TABLET 645556 ZOLPIDEM TARTRATE Inactive LISINOPRIL 20 MG ORAL TABLET 1 BID LISINOPRIL 20 MG ORAL TABLET 991680 LISINOPRIL Inactive TRAVATAN Z 0.004 % OPHTHALMIC SOLUTION 1 gtt each eye daily TRAVATAN Z 0.004 % OPHTHALMIC SOLUTION TRAVOPROST Inactive LATUDA 60 MG ORAL TABLET Take one by mouth daily LATUDA 60 MG ORAL TABLET LURASIDONE HCL Inactive FLUVOXAMINE MALEATE 50 MG ORAL TABLET 1 tab by mouth daily 04/01 FLUVOXAMINE MALEATE 50 MG ORAL TABLET 922778 FLUVOXAMINE MALEATE Inactive LEVEMIR FLEXTOUCH 100 UNIT/ML [...] 30G 3 a day TRUEPLUS LANCETS 30G [id number] LANCETS Inactive AMITIZA 24 MCG ORAL CAPSULE [...] noon FLUVOXAMINE MALEATE 100 MG ORAL TABLET 223661 FLUVOXAMINE MALEATE Inactive FLONASE ALLERGY RELIEF 50 MCG/ACT NASAL SUSPENSION One spray each nostril BID x 1 week then daily FLONASE ALLERGY RELIEF 50 MCG/ACT NASAL SUSPENSION 3573808 FLUTICASONE PROPIONATE Inactive IMODIUM A-D 2 MG ORAL TABLET 1 tab QID as needed IMODIUM A-D 2 MG ORAL TABLET 281960 LOPERAMIDE HCL Inactive MYLANTA GAS RELIEF MAXIMUM STR 125 MG ORAL CAPSULE 30cc every 4 hours prn MYLANTA GAS RELIEF MAXIMUM STR 125 MG ORAL CAPSULE SIMETHICONE Inactive TRUEPLUS LANCETS 30G 3x a day TRUEPLUS LANCETS 30G [id number] LANCETS Inactive TRUE METRIX BLOOD GLUCOSE TEST [...] headaches TRAZODONE HCL 100 MG ORAL TABLET 987165 TRAZODONE HCL Inactive TYLENOL 8 HOUR 650 MG ORAL TABLET EXTENDED RELEASE 1 tab QID prn TYLENOL 8 HOUR 650 MG ORAL TABLET EXTENDED RELEASE ACETAMINOPHEN Inactive [facility] LUBRICANT EYE DROPS 0.4-0.3 % OPHTHALMIC SOLUTION [facility] LUBRICANT EYE DROPS 0.4-0.3 % OPHTHALMIC SOLUTION POLYETHYL GLYCOL- PROPYL GLYCOL Inactive CEFDINIR 300 MG ORAL CAPSULE by mouth twice a day CEFDINIR 300 MG ORAL CAPSULE 130545 CEFDINIR Inactive AZITHROMYCIN 500 MG INTRAVENOUS SOLUTION RECONSTITUTED 1 po q day AZITHROMYCIN 500 MG INTRAVENOUS SOLUTION RECONSTITUTED 89021506214 AZITHROMYCIN Inactive AMOXICILLIN 500 MG ORAL CAPSULE 2 po BID x 10 days AMOXICILLIN 500 MG ORAL CAPSULE 352588 AMOXICILLIN Inactive PENICILLIN V POTASSIUM 500 MG ORAL TABLET 1 pill by mouth three times daily PENICILLIN V POTASSIUM 500 MG ORAL TABLET 843243 PENICILLIN V POTASSIUM Inactive KEFLEX 500 MG ORAL CAPSULE 1 po BID x 7 days KEFLEX 500 MG ORAL CAPSULE 558463 CEPHALEXIN Inactive Immunizations Vaccine Administration Date Value [...] Fluvirin, Fluarix, Agriflu(>=18 yo)) Fluzone (>3 yrs.) [[id number]] Influenza, seasonal, injectable pneumococcal immunization administered Pneumovax [...] ... - Chemistry sodium, serum 135 mmol/L 426-601 1172/08/22 carbon dioxide, venous blood 28.4 mmol/L 21.0-32.0 [...] mg/g {creat} 0-29 cholesterol, serum 263 mg/dL 184-759 8225/08/22 triglyceride, serum, fasting 1312 mg/dL 30-200 HDL [...] ordered Encounters Code Encounter Date Provider Facility CPT-26405 Level 3 Est. Patient 09:12:14 [employer]ARM [employer] Mima Erazo APRN [facility] CPT-03799 Level 3 Est. Patient 16:52:51 CDT Vanessa Hickey MD [facility]-69018 Level 3 Est. Patient 17:40:16 CDT Mima Erazo [facility] CPT-69928 Level 3 Est. Patient 14:34:52 CDT Vanessa Hickey MD [facility]-25739 Level 3 Est. Patient 16:27:51 CDT Mima Erazo [facility]-48782 Level 3 Est. 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 Patient 18:43:34 CDT Mima Erazo [facility] CPT-63328 Level 3 Est. Patient 16:22:09 CDT Cherelle Avila [facility] CPT-33735 Level 4 Est. Patient 17:55:14 CD[facility] Level 2 Est. Patient 17:13:21 CDT Alina Castaneda MD [facility]-09748 Level 3 Est. Patient 14:46:15 CDT Vanessa Hickey MD [facility]-05144 Level 3 Est. Patient 09:34:56 CDT Alina Castaneda MD [facility]-95104 Level 3 Est. Patient 21:40:19 CDT Mima Kacey [facility] CPT-09404 Level 3 Est. Patient 09:26:40 CDT Marvel [facility]-38995 Level 3 Est. Patient 12:36:43 CDT Vanessa Hickey MD [facility]-65342 Level 3 Est. Patient 12:57:49 CDT Vanessa Hickey MD [facility]-13313 Level 3 Est. Patient 00:28:25 CDT Alina Castaneda MD [facility]-70858 Level 2 Est. Patient 12:52:14 CDT Alina Castaneda MD [facility]43427 Level 3 Est. Patient 11:51:18 FARM MECHANIC Alina Castaneda MD [facility]-96212 Level 3 Est. Patient 10:09:22 FARM MECHANIC Alina Castaneda MD [facility]41699 Level 3 Est. Patient 14:36:26 [facility]IC [facility]08959 Level 3 Est. Patient 13:34:47 FARM MECHANIC Alina Castaneda MD [facility]77063 Level 3 Est. Patient 19:52:08 FARM MECHANIC Alina Castaneda MD [facility]24130 Level 3 Est. Patient 10:01:51 [facility] [facility]-75853 Level 3 Est. Patient 21:54:06 CDT Vanessa Hickey MD [facility]-93280 Level 3 Est. Patient 08:54:46 CDT Alina Castaneda MD [facility]-72509 Level 3 Est. Patient 09:32:11 CDT Marvel [facility]-48631 Level 3 Est. Patient 12:02:49 CDT Alina Castaneda MD [facility]05734 Level 3 Est. Patient 19:17:33 CDT Alina Castaneda MD [facility]42213 Level 3 Est. Patient 13:19:10 CDT Marvel [facility]-75476 Level 3 Est. Patient 08:20:05 CDT Alina Castaneda MD [facility]-50064 Level 3 Est. Patient 15:17:18 CDT Alina Castaneda MD [facility]-77652 Level 3 Est. Patient 14:25:36 FARM MECHANIC Marvel [facility]-26052 Level 3 Est. Patient 10:09:15 [employer]ARM [employer]CH[employer]IC [facility]-43285 Level 3 Est. Patient 21:28:43 CDT Alina Castaneda MD [facility]-72321 Level 3 Est. Patient 15:20:11 [facility] Level 4 Est. Patient 19:08:12 CDT Alina Castaneda MD [facility]-68995 Level 3 Est. Patient 15:06:39 CDT [facility]90260 Level 4 Est. Patient 17:48:15 CDT Alina Castaneda MD [facility]-89999 Level 3 Est. Patient 14:53:49 CDT Alina Castaneda MD [facility]-85781 Level 3 Est. Patient 09:35:16 CDT Alina Castaneda MD [facility]-56751 Level 3 Est. Patient 12:23:22 CDT Alina Castaneda MD [facility]-77528 Level 3 Est. Patient 16:19:15 CDT Alina Castaneda MD [facility]-93048 Level 3 Est. Patient 21:39:56 FARM MECHANIC Alina Castaneda MD [facility]-22403 Level 4 Est. Patient 14:12:56 FARM MECHANIC Alina Castaneda MD [facility]-60397 Level 2 Est. Patient 15:34:57 FARM MECHANIC Alina Castaneda MD [facility]-44450 Level 3 Est. Patient 12:17:04 FARM MECHANIC Alina Castaneda MD [facility]70746 Level 3 Est. Patient 09:18:18 FARM MECHANIC Marvel [facility]-66394 Level 2 Est. Patient 21:50:24 CDT Alina Castaneda MD [facility]84098 Level 3 Est. Patient 09:17:28 CDT Marvel [facility]-41457 Level 4 Est. Patient 18:54:02 CDT Alina Castaneda MD [facility]-29467 Level 3 Est. Patient 10:47:10 CDT Alina Castaneda MD [facility]-42792 Level 3 Est. Patient 09:22:20 CDT Marvel [facility]-13528 Level 3 Est. Patient 16:39:43 CDT Marvel [facility]-99453 Level 3 Est. Patient 16:05:16 CDT Alina Castaneda MD [facility]-27202 Level 3 Est. Patient 00:29:15 CDT Alina Castaneda MD [facility]-65320 Level 3 Est. Patient 10:49:22 FARM MECHANIC Marvel [facility]-03154 Level 3 Est. Patient 21:30:19 FARM MECHANIC Alina Castaneda MD [facility]41361 Level 4 Est. Patient 17:04:11 FARM MECHANIC [facility] CPT-12868 Level 3 Est. Patient 15:34:11 FARM MECHANIC [facility] CPT-58630 Level 2 Est. Patient 12:51:58 FARM MECHANIC Alina Castaneda MD PhD [facility] CPT-13264 Level 3 Est. Patient 13:20:01 FARM MECHANIC Alina Castaneda MD PhD [facility] CPT-67204 Level 3 Est. Patient 09:23:35 CDT Alina Castaneda MD PhD [facility] Procedures Code Procedure Name Date Entry Date Standard Description CPT-TCMM Transitional Care Mgmt-Moderate 12:32:19 CDT CPT-02470 Level 2 Skilled Nursing 09:01:11 CDT CPT-81772 HGBA1C - LAB USE ONLY 09:30:27 FARM MECH[employer]IC CPT-87627 BMP - LAB USE ONLY 09:30:27 FARM MECHANIC CPT-67646 Venipuncture Draw Fee 09:30:26 FARM MECHANIC CPT-TCMM Transitional Care Mgmt-Moderate 10:25:31 CDT CPT-17663 Bladder Scan 14:34:53 CDT CPT-71270 Bladder Scan 14:39:01 FARM MECHANIC CPT-TCMM Transitional Care Mgmt-Moderate 10:30:19 FARM MECHANIC CPT-93830 Bladder Scan 12:36:44 CDT CPT-79348 Bladder Scan 21:54:06 CDT CPT-G0008 Administration of Influenza Virus Vaccine 13:05:26 CDT CPT-13609 Fluzone Quadrivalent Intramuscular Suspension 0.5 ML 13: 05:26 CDT CPT-71582 Administration single or combination vaccine inc oral 11 :49:51 CDT CPT-63637 Pneumovax 11:49:51 CDT CPT-82779 Ribs unilateral 2V 12:37:22 [employer] CPT-38638 Chest 2V Frontal and Lat 17:15:26 CDT CPT-51410 Abx/Therapy Injection 18:54:02 CDT CPT-J0696 Rocephin 1000 mg (Ceftriaxone) 16:00:32 CDT CPT-50469 Chest 2V Frontal and Lat 15:26:45 CDT CPT-31086 Chest 2V Frontal and Lat 10:23:27 CDT CPT-59379 Venipuncture Draw Fee 10:11:00 CDT CPT-49971 Administration single or combination vaccine inc oral 11 :56:38 CDT CPT-95378 Influenza split virus > age 3 11:56:38 CDT CPT-88947 Venipuncture Draw Fee 08:49:54 [employer]ARM [employer]CH[employer]IC CPT-45071 EKG Trac and Interp 17:54:19 FARM MECHANIC
--- OUTSIDE RECORDS SUMMARY | 2018-07-02 13:05 | XMS REPORT | Clinical Summary ---
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4-0.3 % OPHTHALMIC SOLUTION POLYETHYL GLYCOL-PROPYL GLYCOL 99214345853 No Longer Active Mason Loredo MD Active TYLENOL 8 HOUR 650 MG ORAL TABLET EXTENDED RELEASE 1 tab QID prn ACETAMINOPHEN 03819672255 No Longer Active Mason Loredo MD Active TOPAMAX 25 MG ORAL TABLET 1 tab BID PRN TOPIRAMATE 85586632408 Active Mason Loredo MD Active TIMOPTIC OCUDOSE 0.5 % OPHTHALMIC SOLUTION instill one drop into both eyes q12H TIMOLOL MALEATE 96839738554 Active Mason Loredo MD Active TRAZODONE HCL 100 MG ORAL TABLET 1 every night to prevent headaches TRAZODONE HCL 53236727656 No Longer Active Mason Loredo MD Active TRAVATAN Z 0.004 % OPHTHALMIC SOLUTION 1 drop each eye daily 2017 TRAVOPROST 91448884739 No Longer Active Mason Loredo MD Active LATUDA 60 MG ORAL TABLET 1 tab daily LURASIDONE HCL 74745835817 No Longer Active Mason Loredo MD Active MORPHINE SULFATE ER 30 MG ORAL TABLET EXTENDED RELEASE Take one capsule BID MORPHINE SULFATE 28141936162 No Longer Active Mason Loredo MD Active TRUE METRIX BLOOD GLUCOSE TEST IN VITRO STRIP Check blood sugars 3x/day. 2015 GLUCOSE BLOOD 73650130451 No Longer Active Mason Loredo MD Active TRUEPLUS LANCETS 30G 3x a day LANCETS 65020718592 No Longer Active Mason Loredo MD Active MYLANTA GAS RELIEF MAXIMUM STR 125 MG ORAL CAPSULE 30cc every 4 hours prn SIMETHICONE 39233779575 No Longer Active Mason Loredo MD Active IMODIUM A-D 2 MG ORAL TABLET 1 tab QID as needed LOPERAMIDE HCL 56403073993 No Longer Active Mason Loredo MD Active FLONASE ALLERGY RELIEF 50 MCG/ACT NASAL SUSPENSION One spray each nostril BID x 1 week then daily FLUTICASONE PROPIONATE 74282259080 No Longer Active Mason Loredo MD Active FLUVOXAMINE MALEATE 100 MG ORAL TABLET take one tab every AM et HS, and take 1 /2 tab at noon FLUVOXAMINE MALEATE 20658474822 No Longer Active Mason Loredo MD Active BD PEN NEEDLE MINI U/F 31G X 5 MM 4 a day INSULIN PEN NEEDLE 73879543436 No Longer Active Mason Loredo MD Active AMITIZA 24 MCG ORAL CAPSULE Take one capsule BID for constipation LUBIPROSTONE 52297716634 No Longer Active Mason Loredo MD Active TRUEPLUS LANCETS 30G 3 a day LANCETS 96952854656 No Longer Active Mason Loredo MD Active CORICIDIN HBP CONGESTION/COUGH 10-200 MG ORAL CAPSULE Take as directed on box as needed for cold/flu symptoms DEXTROMETHORPHAN- GUAIFENESIN 02337723495 No Longer Active Mason Loredo MD Active OMEGA-3 300 MG ORAL CAPSULE 4 caps by mouth daily OMEGA-3 FATTY ACIDS 27897267210 No Longer Active Mason Loredo MD Active HUMALOG KWIKPEN 100 UNIT/ML SUBCUTANEOUS SOLUTION PEN-INJECTOR sliding scale if needed INSULIN LISPRO (HUMAN) 93785633693 No Longer Active Mason Loredo MD Active TRUETEST TEST IN VITRO STRIP check blood sugars 3x/day GLUCOSE BLOOD 96487724697 No Longer Active Mason Loredo MD Active ALFUZOSIN HCL ER 10 MG ORAL TABLET EXTENDED RELEASE 24 HOUR 1 tablet daily ALFUZOSIN HCL 55170469957 No Longer Active Mason Loredo MD Active BD INSULIN SYRINGE 28G X 1/2" 1 ML 1 four times per day INSULIN SYRINGE-NEEDLE U-100 98639626757 No Longer Active Mason Loredo MD Active LEVEMIR FLEXTOUCH 100 UNIT/ML SUBCUTANEOUS SOLUTION PEN-INJECTOR 60 units SQ each evening, for diabetes INSULIN DETEMIR 35870085921 No Longer Active Mason Loredo MD Active METFORMIN HCL ER (MOD) 500 MG ORAL TABLET EXTENDED RELEASE 24 HOUR give two tabs PO BID METFORMIN HCL 28643028367 Active Mason Loredo MD Active LACTULOSE 20 GM/30ML ORAL SOLUTION give 30 Ml PO BID PRN LACTULOSE 67085177732 Active Mason Loredo MD Active COLACE 100 MG ORAL CAPSULE 1 tab BID PRN DOCUSATE SODIUM 47811052263 Active Mason Loredo MD Active TAMSULOSIN HCL 0.4 MG ORAL CAPSULE give 2 capsules PO each evening TAMSULOSIN HCL 52759377571 Active Mason Loredo MD Active [facility] MELATONIN 3 MG ORAL TABLET give 1 tab by mouth at HS MELATONIN 00258219974 Active Mason Loredo MD Active LATANOPROST 0.005 % OPHTHALMIC SOLUTION instill 1 drop in both eyes at bed time LATANOPROST 70120091542 Active Mason Loredo MD Active AMARYL 2 MG ORAL TABLET give 2.5 tabs PO daily GLIMEPIRIDE 18907895454 Active Mason Loredo MD Active MIRALAX ORAL POWDER 17g by mouth q12h, for constipation POLYETHYLENE GLYCOL 3350 16706415456 Active Mason Loredo MD Active IBUPROFEN 400 MG ORAL TABLET 1 tab Q6H PRN IBUPROFEN 55086143109 Active Mason Loredo MD Active EFFEXOR XR 37.5 MG ORAL CAPSULE EXTENDED RELEASE 24 HOUR Take one by mouth daily VENLAFAXINE HCL 81017259511 Active Mima Erazo APRN Active FLUVOXAMINE MALEATE 50 MG ORAL TABLET 1 tab by mouth daily 04/01 FLUVOXAMINE MALEATE 25623817715 No Longer Active Mima Erazo APRN Active TRUE METRIX METER w/Device KIT Check blood sugars 3x/day BLOOD GLUCOSE MONITORING SUPPL 82317047956 Active Marvel MARROQUIN Active VITAMIN D 2000 UNIT ORAL CAPSULE Take one by mouth daily CHOLECALCIFEROL 75839562245 Active Mima Erazo APRN Active LATUDA 60 MG ORAL TABLET Take one by mouth daily LURASIDONE HCL 89183212669 No Longer Active Mima Erazo APRN Active CLONAZEPAM 1 MG ORAL TABLET 1 pill by mouth three times daily CLONAZEPAM 21676768934 Active Rhett Luther DO Active [facility] MILK OF MAGNESIA 400 MG/5ML ORAL SUSPENSION 30ml by mouth bid prn MAGNESIUM HYDROXIDE 65661892178 Active Mason Loredo MD Active TRAVATAN Z 0.004 % OPHTHALMIC SOLUTION 1 gtt each eye daily TRAVOPROST 07345080503 No Longer Active Mason Loredo MD Active LISINOPRIL 20 MG ORAL TABLET 1 BID LISINOPRIL 72482063354 No Longer Active Mason Loredo MD Active ZOLPIDEM TARTRATE 10 MG ORAL TABLET take at bedtime ZOLPIDEM TARTRATE 80949729353 No Longer Active Mason Loredo MD Active HYDROCODONE-ACETAMINOPHEN 5-325 MG ORAL TABLET 2 tabs by mouth three times daily for pain HYDROCODONE-ACETAMINOPHEN 45877036712 No Longer Active Mason Loredo MD Active ZOFRAN 4 MG ORAL TABLET 1 po q4hr PRN Nausea ONDANSETRON HCL 61385556486 No Longer Active Mason Loredo MD Active LOMOTIL 2.5-0.025 MG ORAL TABLET take 1-2 tabs PO after each stool, no more than 8 in 24 hours DIPHENOXYLATE-ATROPINE 72854803064 No Longer Active Mason Loredo MD Active COLACE 100 MG ORAL CAPSULE 1 pill by mouth twice daily, for constipation 2014 DOCUSATE SODIUM 35089843973 No Longer Active Mima Erazo APRN Active TOLTERODINE TARTRATE 2 MG ORAL TABLET 1 pill twice daily, for bladder TOLTERODINE TARTRATE 64251670861 No Longer Active Vanessa Hickey MD Active AMITIZA 24 MCG ORAL CAPSULE Take one capsule BID for constipation. LUBIPROSTONE 28696936347 No Longer Active Vanessa Hickey MD Active METOPROLOL SUCCINATE ER 100 MG ORAL TABLET EXTENDED RELEASE 24 HOUR 1 by mouth daily for blood pressure METOPROLOL SUCCINATE 42680252558 No Longer Active Grace Azam RMA Active METFORMIN HCL ER 500 MG ORAL TABLET EXTENDED RELEASE 24 HOUR Take three tablets by mouth everyday METFORMIN HCL 09248998805 No Longer Active Grace Azam RMA Active LOVAZA 1 GM ORAL CAPSULE 4 daily (for triglycerides) UDAAC-9-BUCA ETHYL ESTERS 23244013913 No Longer Active Grace Azam RMA Active TRAZODONE HCL 100 MG ORAL TABLET 1 tab by mouth for sleep TRAZODONE HCL 91384074419 No Longer Active Grace Azam RMA Active NOVOFINE 32G X 6 MM use one four times per day INSULIN PEN NEEDLE 74196964996 No Longer Active Grace Azam RMA Active BACTROBAN 2 % EXTERNAL CREAM Apply to affected area BID for up to 10 days MUPIROCIN CALCIUM 95373244989 No Longer Active Grace Azam RMA Active KEFLEX 500 MG ORAL CAPSULE 1 po BID x 7 days CEPHALEXIN 28718882745 No Longer Active Cherelle Avila APRN Active FLUVOXAMINE MALEATE 100 MG ORAL TABLET Take one (1) tablet by mouth am, 1/2 at noon FLUVOXAMINE MALEATE 96362166347 No Longer Active Mima Erazo APRN Active FLUVOXAMINE MALEATE 100 MG ORAL TABLET Take 1/2 tab at noon 03/04 FLUVOXAMINE MALEATE 46451073061 No Longer Active Cherelle Avila ALBAN Active ACCU-CHEK ROSA DEVICE Use device to check blood sugars BLOOD GLUCOSE MONITORING SUPPL 11837743656 No Longer Active Marvel MARROQUIN Active ACCU-CHEK ROSA IN VITRO STRIP use strips with device to check blood sugars 3 times daily GLUCOSE BLOOD 73485403907 No Longer Active Marvel MARROQUIN Active VERAPAMIL HCL ER 180 MG ORAL TABLET EXTENDED RELEASE 1 pill by mouth twice daily, for migraine prevention VERAPAMIL HCL 91255323423 Active Mimacecily Erazo APRN Active CYCLOBENZAPRINE HCL 10 MG ORAL TABLET 1 tablet by mouth three times daily, scheduled CYCLOBENZAPRINE HCL 58438156480 No Longer Active Alina Castaneda MD PhD Active HUMALOG 100 UNIT/ML SUBCUTANEOUS SOLUTION Take 20 units with breakfast, 10u with lunch and suppetr. INSULIN LISPRO (HUMAN) 46393229485 No Longer Active Alina Castaneda MD PhD Active TRUETEST TEST IN VITRO STRIP check sugars 4x/day GLUCOSE BLOOD 72783954737 No Longer Active Alina Castaneda MD PhD Active MORPHINE SULFATE 30 MG ORAL TABLET 1 pill by mouth twice daily, for pain 2013 MORPHINE SULFATE 63137123256 No Longer Active Mason Loredo MD Active ACYCLOVIR 400 MG ORAL TABLET 1 pill three times daily x 5 days, for cold sore outbreak ACYCLOVIR 03609461909 No Longer Active Alina Castaneda MD PhD Active PENICILLIN V POTASSIUM 500 MG ORAL TABLET 1 pill by mouth three times daily PENICILLIN V POTASSIUM 26795951547 No Longer Active Alina Castaneda MD PhD Active UROXATRAL 10 MG ORAL TABLET EXTENDED RELEASE 24 HOUR Take 1 tablet by mouth daily ALFUZOSIN HCL 21256417083 No Longer Active Alina Castaneda MD PhD Active THIOTHIXENE 5 MG ORAL CAPSULE by mouth twice a day THIOTHIXENE 55086374663 No Longer Active Alina Castaneda MD PhD Active ZYPREXA 7.5 MG ORAL TABLET 1 at HS OLANZAPINE 43247325041 No Longer Active Alina Castaneda MD PhD Active DETROL LA 4 MG ORAL CAPSULE EXTENDED RELEASE 24 HOUR Take 1 tablet by mouth daily TOLTERODINE TARTRATE 10090800427 No Longer Active Alina Castaneda MD PhD Active TERESE CONTOUR TEST IN VITRO STRIP monitor blood sugars 3x/day GLUCOSE BLOOD 35358905891 No Longer Active Alina Castaneda MD PhD Active EQL TRUETEST TEST IN VITRO STRIP Test blood sugar TID GLUCOSE BLOOD 15739741803 No Longer Active Alina Castaneda MD PhD Active FLUTICASONE PROPIONATE 50 MCG/ACT NASAL SUSPENSION 2 sprays each nostril qDay x 30 days FLUTICASONE PROPIONATE 63413981823 No Longer Active Alina Castaneda MD PhD Active IBUPROFEN 200 MG ORAL TABLET 1 Q 6 hr. PRN IBUPROFEN 11775904803 No Longer Active Alina Castaneda MD PhD Active NIACIN ER 500 MG ORAL TABLET EXTENDED RELEASE 4 qHS (for triglycerides) 01/13 NIACIN 82617763131 No Longer Active Alina Castaneda MD PhD Active SAPHRIS 5 MG SUBLINGUAL TABLET SUBLINGUAL by mouth twice a day ASENAPINE MALEATE 73225403343 No Longer Active Maliheh Ziglari SENIOR IT ENGINEER Active ACETAMINOPHEN 500 MG ORAL TABLET 2 Q 6 hr. PRN ACETAMINOPHEN 47024912279 No Longer Active Maliheh Ziglari SENIOR IT ENGINEER Active ORPHENADRINE CITRATE ER 100 MG ORAL TABLET EXTENDED RELEASE 12 HOUR 1 every 12 hr. as needed ORPHENADRINE CITRATE 37021216511 No Longer Active Alina Castaneda MD PhD Active NIACIN ER 500 MG ORAL TABLET EXTENDED RELEASE 2 qHS NIACIN 52861595478 No Longer Active Alina Castaneda MD PhD Active AMOXICILLIN 500 MG ORAL CAPSULE 2 po BID x 10 days AMOXICILLIN 33392527297 No Longer Active Alina Castaneda MD PhD Active HYDROCODONE-ACETAMINOPHEN 7.5-325 MG ORAL TABLET 1 four times a day as needed for pain HYDROCODONE-ACETAMINOPHEN 70546334319 No Longer Active Alina Castaneda MD PhD Active DOXEPIN HCL 10 MG ORAL CAPSULE Take 1 tablet by mouth daily DOXEPIN HCL 02125680998 No Longer Active Salina Han A Active NAVANE 10 MG CAPS 1/2 tablet twice a day THIOTHIXENE No Longer Active Salina Han A Active CYCLOBENZAPRINE HCL 10 MG ORAL TABLET 1/2 tablet by mouth every 8 hours as needed for muscle spasms CYCLOBENZAPRINE HCL 46318704196 No Longer Active Alina Castaneda MD PhD Active BACTROBAN 2 % EXTERNAL CREAM apply to ear and nose twice daily MUPIROCIN CALCIUM 19753295007 No Longer Active Alina Castaneda MD PhD Active HYDROCODONE-ACETAMINOPHEN 5-325 MG ORAL TABLET take one tablet by mouth every four hours as needed for pain HYDROCODONE-ACETAMINOPHEN 02172196981 No Longer Active Alina Castaneda MD PhD Active ZYPREXA 5 MG ORAL TABLET take one tablet by mouth every evening OLANZAPINE 27543639587 No Longer Active Alina Castaneda MD PhD Active ALBUTEROL SULFATE (2.5 MG/3ML) 0.083% INHALATION NEBULIZATION SOLUTION one vial per nebulizer TID and PRN cough/soa ALBUTEROL SULFATE 21857366321 No Longer Active Alina Castaneda MD PhD Active GUAIFENESIN ER 600 MG ORAL TABLET EXTENDED RELEASE 12 HOUR 1 tablet by mouth twice daily if needed for cough GUAIFENESIN 04392168337 No Longer Active Marvel MARROQUIN Active AZITHROMYCIN 500 MG INTRAVENOUS SOLUTION RECONSTITUTED 1 po q day AZITHROMYCIN 66080285080 No Longer Active Alina Castaneda MD PhD Active PROMETHAZINE-CODEINE 6.25-10 MG/5ML ORAL SYRUP 1 tsp po q 6 hours prn cough PROMETHAZINE-CODEINE 28079036782 No Longer Active Alina Castaneda MD PhD Active CEFDINIR 300 MG ORAL CAPSULE by mouth twice a day CEFDINIR 60685053541 No Longer Active Alina Castaneda MD PhD Active METFORMIN HCL ER 500 MG ORAL TABLET EXTENDED RELEASE 24 HOUR Take 3 tablets by mouth everyday METFORMIN HCL 32728639111 No Longer Active Alina Castaneda MD PhD Active LEVEMIR 100 UNIT/ML SUBCUTANEOUS SOLUTION 90 units SQ qHS INSULIN DETEMIR 92297831666 No Longer Active Marvel MARROQUIN Active TOPROL XL 100 MG ORAL TABLET EXTENDED RELEASE 24 HOUR 1 @ HS METOPROLOL SUCCINATE 33105483774 No Longer Active Marvel MARROQUIN Active ALLOPURINOL 300 MG ORAL TABLET Take one by mouth daily ALLOPURINOL 84019833297 Active Mima Erazo PSYCHOLOGICAL SCIENCE PROFESSOR Active ZYPREXA 10 MG ORAL TABLET Take one by mouth daily OLANZAPINE 79267110585 No Longer Active Alina Castaneda MD PhD Active NOVOLOG 100 UNIT/ML SUBCUTANEOUS SOLUTION 40 units with every meal INSULIN ASPART 26595931809 No Longer Active Alina Castaneda MD PhD Active VERAPAMIL HCL ER 120 MG ORAL TABLET EXTENDED RELEASE 1 qPM 09/08 VERAPAMIL HCL 65510001154 No Longer Active Salina ROJAS Active ZYPREXA 15 MG ORAL TABLET Take 1 tablet by mouth daily OLANZAPINE 91058727462 No Longer Active Marvel MARROQUIN Active ALBUTEROL SULFATE (2.5 MG/3ML) 0.083% INHALATION NEBULIZATION SOLUTION 1 neb tid and prn cough ALBUTEROL SULFATE 76817019800 No Longer Active Alina Castaneda MD PhD Active LANTUS 100 UNIT/ML SUBCUTANEOUS SOLUTION 60 units sq q hs INSULIN GLARGINE 34929316766 No Longer Active CRYSTAL Suarez Active ALBUTEROL SULFATE (2.5 MG/3ML) 0.083% INHALATION NEBULIZATION SOLUTION 1 neb tid and prn cough ALBUTEROL SULFATE (2.5 MG/3ML) 0.083% INHALATION NEBULIZATION SOLUTION 024652 ALBUTEROL SULFATE Inactive ZYPREXA 15 MG ORAL TABLET Take 1 tablet by mouth daily ZYPREXA 15 MG ORAL TABLET 912249 OLANZAPINE Inactive VERAPAMIL HCL ER 120 MG ORAL TABLET EXTENDED RELEASE 1 qPM 09/08 VERAPAMIL HCL ER 120 MG ORAL TABLET EXTENDED RELEASE VERAPAMIL HCL Inactive ZYPREXA 10 MG ORAL TABLET Take one by mouth daily ZYPREXA 10 MG ORAL TABLET 113051 OLANZAPINE Inactive TOPROL XL 100 MG ORAL TABLET EXTENDED RELEASE 24 HOUR 1 @ HS TOPROL XL 100 MG ORAL TABLET EXTENDED RELEASE 24 HOUR METOPROLOL SUCCINATE Inactive LEVEMIR 100 UNIT/ML SUBCUTANEOUS SOLUTION 90 units SQ qHS LEVEMIR 100 UNIT/ML SUBCUTANEOUS SOLUTION INSULIN DETEMIR Inactive PROMETHAZINE-CODEINE 6.25-10 MG/5ML ORAL SYRUP 1 tsp po q 6 hours prn cough PROMETHAZINE-CODEINE 6.25-10 MG/5ML ORAL SYRUP 854972 PROMETHAZINE-CODEINE Inactive GUAIFENESIN ER 600 MG ORAL TABLET EXTENDED RELEASE 12 HOUR 1 tablet by mouth twice daily if needed for cough GUAIFENESIN ER 600 MG ORAL TABLET EXTENDED RELEASE 12 HOUR GUAIFENESIN Inactive ALBUTEROL SULFATE (2.5 MG/3ML) 0.083% INHALATION NEBULIZATION SOLUTION one vial per nebulizer TID and PRN cough/soa ALBUTEROL SULFATE (2.5 MG/3ML) 0.083% INHALATION NEBULIZATION SOLUTION 446187 ALBUTEROL SULFATE Inactive ZYPREXA 5 MG ORAL TABLET take one tablet by mouth every evening ZYPREXA 5 MG ORAL TABLET 721094 OLANZAPINE Inactive HYDROCODONE-ACETAMINOPHEN 5-325 MG ORAL TABLET take one tablet by mouth every four hours as needed for pain HYDROCODONE-ACETAMINOPHEN 5-325 MG ORAL TABLET 998557 HYDROCODONE-ACETAMINOPHEN Inactive BACTROBAN 2 % EXTERNAL CREAM apply to ear and nose twice daily BACTROBAN 2 % EXTERNAL CREAM 736970 MUPIROCIN CALCIUM Inactive CYCLOBENZAPRINE HCL 10 MG ORAL TABLET 1/2 tablet by mouth every 8 hours as needed for muscle spasms CYCLOBENZAPRINE HCL 10 MG ORAL TABLET 068311 CYCLOBENZAPRINE HCL Inactive NAVANE 10 MG CAPS 1/2 tablet twice a day NAVANE 10 MG CAPS THIOTHIXENE Inactive DOXEPIN HCL 10 MG ORAL CAPSULE Take 1 tablet by mouth daily DOXEPIN HCL 10 MG ORAL CAPSULE 7403280 DOXEPIN HCL Inactive HYDROCODONE-ACETAMINOPHEN 7.5-325 MG ORAL TABLET 1 four times a day as needed for pain HYDROCODONE-ACETAMINOPHEN 7.5-325 MG ORAL TABLET 031223 HYDROCODONE-ACETAMINOPHEN Inactive NIACIN ER 500 MG ORAL [...] hr. PRN ACETAMINOPHEN 500 MG ORAL TABLET 329505 ACETAMINOPHEN Inactive SAPHRIS 5 MG SUBLINGUAL TABLET SUBLINGUAL by mouth twice a day SAPHRIS 5 MG SUBLINGUAL TABLET SUBLINGUAL ASENAPINE MALEATE Inactive NIACIN ER 500 MG ORAL TABLET EXTENDED RELEASE 4 qHS (for triglycerides) 01/13 NIACIN ER 500 MG ORAL TABLET EXTENDED RELEASE NIACIN Inactive IBUPROFEN 200 MG ORAL TABLET 1 Q 6 hr. PRN IBUPROFEN 200 MG ORAL TABLET 694190 IBUPROFEN Inactive FLUTICASONE PROPIONATE 50 MCG/ACT NASAL SUSPENSION 2 sprays each nostril qDay x 30 days FLUTICASONE PROPIONATE 50 MCG/ACT NASAL SUSPENSION 4577145 FLUTICASONE PROPIONATE Inactive EQL TRUETEST TEST IN [...] at HS ZYPREXA 7.5 MG ORAL TABLET 699644 OLANZAPINE Inactive THIOTHIXENE 5 MG ORAL CAPSULE by mouth twice a day THIOTHIXENE 5 MG ORAL CAPSULE 907829 THIOTHIXENE Inactive UROXATRAL 10 MG ORAL TABLET EXTENDED RELEASE 24 HOUR Take 1 tablet by mouth daily UROXATRAL 10 MG ORAL TABLET EXTENDED RELEASE 24 HOUR ALFUZOSIN HCL Inactive ACYCLOVIR 400 MG ORAL TABLET 1 pill three times daily x 5 days, for cold sore outbreak ACYCLOVIR 400 MG ORAL TABLET 382098 ACYCLOVIR Inactive TRUETEST TEST IN VITRO STRIP check sugars 4x/day TRUETEST TEST IN VITRO STRIP GLUCOSE BLOOD Inactive HUMALOG 100 UNIT/ML SUBCUTANEOUS SOLUTION Take 20 units with breakfast, 10u with lunch and suppetr. HUMALOG 100 UNIT/ML SUBCUTANEOUS SOLUTION INSULIN LISPRO (HUMAN) Inactive CYCLOBENZAPRINE HCL 10 MG ORAL TABLET 1 tablet by mouth three times daily, scheduled CYCLOBENZAPRINE HCL 10 MG ORAL TABLET 258682 CYCLOBENZAPRINE HCL Inactive ACCU-CHEK ROSA IN VITRO STRIP use strips with device to check blood sugars 3 times daily ACCU-CHEK ROSA IN VITRO STRIP GLUCOSE BLOOD Inactive ACCU-CHEK ROSA DEVICE Use device to check blood sugars ACCU-CHEK ROSA DEVICE BLOOD GLUCOSE MONITORING SUPPL Inactive FLUVOXAMINE MALEATE 100 MG ORAL TABLET Take 1/2 tab at noon 03/04 FLUVOXAMINE MALEATE 100 MG ORAL TABLET 926120 FLUVOXAMINE MALEATE Inactive FLUVOXAMINE MALEATE 100 MG ORAL TABLET Take one (1) tablet by mouth am, 1/2 at noon FLUVOXAMINE MALEATE 100 MG ORAL TABLET 590268 FLUVOXAMINE MALEATE Inactive BACTROBAN 2 % EXTERNAL CREAM Apply to affected area BID for up to 10 days BACTROBAN 2 % EXTERNAL CREAM 679604 MUPIROCIN CALCIUM Inactive NOVOFINE 32G X 6 MM use one four times per day NOVOFINE 32G X 6 MM INSULIN PEN NEEDLE Inactive TRAZODONE HCL 100 MG ORAL TABLET 1 tab by mouth for sleep TRAZODONE HCL 100 MG ORAL TABLET 578722 TRAZODONE HCL Inactive LOVAZA 1 GM ORAL CAPSULE 4 daily (for triglycerides) LOVAZA 1 GM ORAL CAPSULE 595746 YZUTY-9-TCOQ ETHYL ESTERS Inactive METFORMIN HCL ER 500 [...] bladder TOLTERODINE TARTRATE 2 MG ORAL TABLET 105512 TOLTERODINE TARTRATE Inactive COLACE 100 MG ORAL CAPSULE 1 pill by mouth twice daily, for constipation 2014 COLACE 100 MG ORAL CAPSULE 0449861 DOCUSATE SODIUM Inactive LOMOTIL 2.5-0.025 MG ORAL TABLET take 1-2 tabs PO after each stool, no more than 8 in 24 hours LOMOTIL 2.5-0.025 MG ORAL TABLET 2326421 DIPHENOXYLATE-ATROPINE Inactive ZOFRAN 4 MG ORAL TABLET 1 po q4hr PRN Nausea ZOFRAN 4 MG ORAL TABLET 947873 ONDANSETRON HCL Inactive HYDROCODONE-ACETAMINOPHEN 5-325 MG ORAL TABLET 2 tabs by mouth three times daily for pain HYDROCODONE-ACETAMINOPHEN 5-325 MG ORAL TABLET 441934 HYDROCODONE-ACETAMINOPHEN Inactive ZOLPIDEM TARTRATE 10 MG ORAL TABLET take at bedtime ZOLPIDEM TARTRATE 10 MG ORAL TABLET 310552 ZOLPIDEM TARTRATE Inactive LISINOPRIL 20 MG ORAL TABLET 1 BID LISINOPRIL 20 MG ORAL TABLET 364478 LISINOPRIL Inactive TRAVATAN Z 0.004 % OPHTHALMIC SOLUTION 1 gtt each eye daily TRAVATAN Z 0.004 % OPHTHALMIC SOLUTION TRAVOPROST Inactive LATUDA 60 MG ORAL TABLET Take one by mouth daily LATUDA 60 MG ORAL TABLET LURASIDONE HCL Inactive FLUVOXAMINE MALEATE 50 MG ORAL TABLET 1 tab by mouth daily 04/01 FLUVOXAMINE MALEATE 50 MG ORAL TABLET 220974 FLUVOXAMINE MALEATE Inactive LEVEMIR FLEXTOUCH 100 UNIT/ML [...] 30G 3 a day TRUEPLUS LANCETS 30G 81997026841 LANCETS Inactive AMITIZA 24 MCG ORAL CAPSULE [...] noon FLUVOXAMINE MALEATE 100 MG ORAL TABLET 093428 FLUVOXAMINE MALEATE Inactive FLONASE ALLERGY RELIEF 50 MCG/ACT NASAL SUSPENSION One spray each nostril BID x 1 week then daily FLONASE ALLERGY RELIEF 50 MCG/ACT NASAL SUSPENSION 7825912 FLUTICASONE PROPIONATE Inactive IMODIUM A-D 2 MG ORAL TABLET 1 tab QID as needed IMODIUM A-D 2 MG ORAL TABLET 351375 LOPERAMIDE HCL Inactive MYLANTA GAS RELIEF MAXIMUM STR 125 MG ORAL CAPSULE 30cc every 4 hours prn MYLANTA GAS RELIEF MAXIMUM STR 125 MG ORAL CAPSULE SIMETHICONE Inactive TRUEPLUS LANCETS 30G 3x a day TRUEPLUS LANCETS 30G 46706262502 LANCETS Inactive TRUE METRIX BLOOD GLUCOSE TEST [...] headaches TRAZODONE HCL 100 MG ORAL TABLET 153669 TRAZODONE HCL Inactive TYLENOL 8 HOUR 650 MG ORAL TABLET EXTENDED RELEASE 1 tab QID prn TYLENOL 8 HOUR 650 MG ORAL TABLET EXTENDED RELEASE ACETAMINOPHEN Inactive [facility] LUBRICANT EYE DROPS 0.4-0.3 % OPHTHALMIC SOLUTION [facility] LUBRICANT EYE DROPS 0.4-0.3 % OPHTHALMIC SOLUTION POLYETHYL GLYCOL- PROPYL GLYCOL Inactive CEFDINIR 300 MG ORAL CAPSULE by mouth twice a day CEFDINIR 300 MG ORAL CAPSULE 351382 CEFDINIR Inactive AZITHROMYCIN 500 MG INTRAVENOUS SOLUTION RECONSTITUTED 1 po q day AZITHROMYCIN 500 MG INTRAVENOUS SOLUTION RECONSTITUTED 10697251044 AZITHROMYCIN Inactive AMOXICILLIN 500 MG ORAL CAPSULE 2 po BID x 10 days AMOXICILLIN 500 MG ORAL CAPSULE 775839 AMOXICILLIN Inactive PENICILLIN V POTASSIUM 500 MG ORAL TABLET 1 pill by mouth three times daily PENICILLIN V POTASSIUM 500 MG ORAL TABLET 021958 PENICILLIN V POTASSIUM Inactive KEFLEX 500 MG ORAL CAPSULE 1 po BID x 7 days KEFLEX 500 MG ORAL CAPSULE 416793 CEPHALEXIN Inactive Immunizations Vaccine Administration Date Value [...] Fluvirin, Fluarix, Agriflu(>=18 yo)) Fluzone (>3 yrs.) [[id number]] Influenza, seasonal, injectable pneumococcal immunization administered Pneumovax [...] ... - Chemistry sodium, serum 135 mmol/L 939-780 6762/08/22 carbon dioxide, venous blood 28.4 mmol/L 21.0-32.0 [...] mg/g {creat} 0-29 cholesterol, serum 263 mg/dL 499-083 1782/08/22 triglyceride, serum, fasting 1312 mg/dL 30-200 HDL [...] ordered Encounters Code Encounter Date Provider Facility CPT-56069 Level 3 Est. 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 Patient 16:52:51 CDT Vanessa Hickey MD [facility]-[id number] Level 3 Est. Patient 17:40:16 CDT Mima Erazo [facility] CPT-97032 Level 3 Est. Patient 14:34:52 CDT Vanessa Hickey MD [facility]-[id number] Level 3 Est. Patient 16:27:51 CDT Mima Erazo [facility]-28591 Level 3 Est. Patient 14:39:00 RIDE OPERATOR Vanessa Hickey MD [facility]-61326 Level 2 Est. Patient 18:43:34 CDT Mima Erazo [facility] CPT-71523 Level 3 Est. Patient 16:22:09 CDT Cherelle Avila [facility] CPT-68915 Level 4 Est. Patient 17:55:14 CDT [facility] Level 2 Est. Patient 17:13:21 CDT Alina Castaneda MD [id number] Level 3 Est. Patient 14:46:15 CDT Vanessa Hickey MD [facility]-02871 Level 3 Est. Patient 09:34:56 CDT Alina Castaneda MD [facility]-92839 Level 3 Est. Patient 21:40:19 CDT Mima Kacey [facility] CPT-66606 Level 3 Est. Patient 09:26:40 CDT Marvel [facility]-72749 Level 3 Est. Patient 12:36:43 CDT Vanessa Hickey MD [facility]-42923 Level 3 Est. Patient 12:57:49 CDT Vanessa Hickey MD [facility]-47328 Level 3 Est. Patient 00:28:25 CDT Alina Castaneda MD [facility]-79420 Level 2 Est. Patient 12:52:14 CDT Alina Castaneda MD [facility]21418 Level 3 Est. Patient 11:51:18 RIDE OPERATOR Alina Castaneda MD [facility] [phone] Level 3 Est. Patient 10:09:22 RIDE OPERATOR Alina Castaneda MD [facility]00192 Level 3 Est. Patient 14:36:26 RIDE OPERATOR [facility]33727 Level 3 Est. Patient 13:34:47 RIDE OPERATOR Alina Castaneda MD [facility]02781 Level 3 Est. Patient 19:52:08 RIDE OPERATOR Alina Castaneda MD [facility]17745 Level 3 Est. Patient 10:01:51 RIDE OPERATOR [facility]-39759 Level 3 Est. Patient 21:54:06 CDT Vanessa Hickey MD [facility]-39897 Level 3 Est. Patient 08:54:46 CDT Alina Castaneda MD [facility] [phone] Level 3 Est. Patient 09:32:11 CDT Marvel [facility]-05048 Level 3 Est. Patient 12:02:49 CDT Alina Castaneda MD [facility]29920 Level 3 Est. Patient 19:17:33 CDT Alina Castaneda MD [facility]61649 Level 3 Est. Patient 13:19:10 CDT Marvel [facility]-94903 Level 3 Est. Patient 08:20:05 CDT Alina Castaneda MD [facility] [phone] Level 3 Est. Patient 15:17:18 CDT Alina Castaneda MD [facility] [phone] Level 3 Est. Patient 14:25:36 RIDE OPERATOR [facility]-77747 Level 3 Est. Patient 10:09:15 RIDE OPERATOR [place] [facility]-76728 Level 3 Est. Patient 21:28:43 CDT Alina Castaneda MD [facility] [id number] Level 3 Est. Patient 15:20:11 [facility] Level 4 Est. Patient 19:08:12 CDT Alina Castaneda MD [facility] 2001-11617 Level 3 Est. Patient 15:06:39 CDT [facility] Level 4 Est. Patient 17:48:15 CDT Alina Castaneda MD [facility] [phone] Level 3 Est. Patient 14:53:49 CDT Alina Castaneda MD [facility] [phone] Level 3 Est. Patient 09:35:16 CDT Alina Castaneda MD [facility] 2001-40350 Level 3 Est. Patient 12:23:22 CDT Alina Castaneda MD [facility] 2001-42514 Level 3 Est. Patient 16:19:15 CDT Alina Castaneda MD [facility] [phone] Level 3 Est. Patient 21:39:56 RIDE OPERATOR Alina Castaneda MD [facility] 2001-55997 Level 4 Est. Patient 14:12:56 RIDE OPERATOR Alina Castaneda MD [facility] [id number] Level 2 Est. Patient 15:34:57 RIDE OPERATOR Alina Castaneda MD [facility] [id number] Level 3 Est. Patient 12:17:04 RIDE OPERATOR Alina Castaneda MD [facility]89025 Level 3 Est. Patient 09:18:18 RIDE OPERATOR Marvel [facility]-84616 Level 2 Est. Patient 21:50:24 CDT Alina Castaneda MD [facility]63058 Level 3 Est. Patient 09:17:28 CDT Marvel [facility]-05952 Level 4 Est. Patient 18:54:02 CDT Alina Castaneda MD [id number] Level 3 Est. Patient 10:47:10 CDT Alina Castaneda MD [facility] 2001-04525 Level 3 Est. Patient 09:22:20 CDT Marvel [facility]-55420 Level 3 Est. Patient 16:39:43 CDT Marvel [facility]-71003 Level 3 Est. Patient 16:05:16 CDT Alina Castaneda MD [facility] [id number] Level 3 Est. Patient 00:29:15 CDT Alina Castaneda MD [phone] Level 3 Est. Patient 10:49:22 RIDE OPERATOR Marvel [facility]-04299 Level 3 Est. Patient 21:30:19 RIDE OPERATOR Alina Castaneda MD [facility]86687 Level 4 Est. Patient 17:04:11 RIDE OPERATOR [facility] CPT-62236 Level 3 Est. Patient 15:34:11 RIDE OPERATOR [facility] CPT-17531 Level 2 Est. Patient 12:51:58 RIDE OPERATOR Alina Castaneda MD PhD [facility] CPT-58874 Level 3 Est. Patient 13:20:01 RIDE OPERATOR Alina Castaneda MD PhD [facility] CPT-24798 Level 3 Est. Patient 09:23:35 CDT Alina Castaneda MD PhD [facility] Procedures Code Procedure Name Date Entry Date Standard Description CPT-TCMM Transitional Care Mgmt-Moderate 12:32:19 CDT CPT-53017 Level 2 Snf 09:01:11 CDT CPT-11301 HGBA1C - LAB USE ONLY 09:30:27 RIDE OPERATOR CPT-20858 BMP - LAB USE ONLY 09:30:27 RIDE OPERATOR CPT-87149 Venipuncture Draw Fee 09:30:26 RIDE OPERATOR CPT-TCMM Transitional Care Mgmt-Moderate 10:25:31 CDT CPT-01105 Bladder Scan 14:34:53 CDT CPT-56877 Bladder Scan 14:39:01 RIDE OPERATOR CPT-TCMM Transitional Care Mgmt-Moderate 10:30:19 RIDE OPERATOR CPT-68421 Bladder Scan 12:36:44 CDT CPT-32599 Bladder Scan 21:54:06 CDT CPT-G0008 Administration of Influenza Virus Vaccine 13:05:26 CDT CPT-72348 Fluzone Quadrivalent Intramuscular Suspension 0.5 ML 13: 05:26 CDT CPT-00578 Administration single or combination vaccine inc oral 11 :49:51 CDT CPT-48921 Pneumovax 11:49:51 CDT CPT-34752 Ribs unilateral 2V 12:37:22 RIDE OPERATOR CPT-63087 Chest 2V Frontal and Lat 17:15:26 CDT CPT-03153 Abx/Therapy Injection 18:54:02 CDT CPT-J0696 Rocephin 1000 mg (Ceftriaxone) 16:00:32 CDT CPT-53082 Chest 2V Frontal and Lat 15:26:45 CDT CPT-38060 Chest 2V Frontal and Lat 10:23:27 CDT CPT-44450 Venipuncture Draw Fee 10:11:00 CDT CPT-64909 Administration single or combination vaccine inc oral 11 :56:38 CDT CPT-24147 Influenza split virus > age 3 11:56:38 CDT CPT-39666 Venipuncture Draw Fee 08:49:54 RIDE OPERATOR CPT-93944 EKG Trac and Interp 17:54:19 RIDE OPERATOR
--- OUTSIDE RECORDS SUMMARY | 2018-07-02 13:07 | XMS REPORT | Clinical Summary ---
Author Author Admin, TERELL Organization [facility] [employer] Address Unknown Phone Unavailable Allergies, Adverse Reactions, [...] mellitus, type II 250.00 Active Marvel Thurstonari MEDICAL DOCTOR NUCLEAR MEDICINE Diabetes mellitus without mention of complication, type [...] tablet by mouth at bedtime QUETIAPINE FUMARATE 98704003666 Active Mason Loredo MD Active OCEAN NASAL SPRAY SOLUTION 2 sprays in both nostrils every 8 hours as needed for dry mucous membranes SALINE SOLN 83108426630 Active Mason Loredo MD Active BETHANECHOL CHLORIDE 25 MG ORAL TABLET Take 1 tablet mouth four times a day BETHANECHOL CHLORIDE 54647445725 Active Mason Loredo MD Active [facility] LUBRICANT E[facility] DROPS 0.4-0.3 % OPHTHALMIC SOLUTION POLYETHYL GLYCOL-PROPYL GLYCOL 25705385988 No Longer Active Mason Loredo MD Active TYLENOL 8 HOUR 650 MG ORAL TABLET EXTENDED RELEASE 1 tab QID prn ACETAMINOPHEN 98334152386 No Longer Active Mason Loredo MD Active TOPAMAX 25 MG ORAL TABLET 1 tab BID PRN TOPIRAMATE 07851628304 Active Mason Loredo MD Active TIMOPTIC OCUDOSE 0.5 % OPHTHALMIC SOLUTION instill one drop into both eyes q12H TIMOLOL MALEATE 32580347481 Active Mason Loredo MD Active TRAZODONE HCL 100 MG ORAL TABLET 1 every night to prevent headaches TRAZODONE HCL 45836678087 No Longer Active Mason Loredo MD Active TRAVATAN Z 0.004 % OPHTHALMIC SOLUTION 1 drop each eye daily 2017 TRAVOPROST 36955355067 No Longer Active Mason Loredo MD Active LATUDA 60 MG ORAL TABLET 1 tab daily LURASIDONE HCL 77958541985 No Longer Active Mason Loredo MD Active MORPHINE SULFATE ER 30 MG ORAL TABLET EXTENDED RELEASE Take one capsule BID MORPHINE SULFATE 59041500503 No Longer Active Mason Loredo MD Active TRUE METRIX BLOOD GLUCOSE TEST IN VITRO STRIP Check blood sugars 3x/day. 2015 GLUCOSE BLOOD 91489850618 No Longer Active Mason Loredo MD Active TRUEPLUS LANCETS 30G 3x a day LANCETS 38249454687 No Longer Active Mason Loredo MD Active MYLANTA GAS RELIEF MAXIMUM STR 125 MG ORAL CAPSULE 30cc every 4 hours prn SIMETHICONE 08205673908 No Longer Active Mason Loredo MD Active IMODIUM A-D 2 MG ORAL TABLET 1 tab QID as needed LOPERAMIDE HCL 31647073948 No Longer Active Mason Loredo MD Active FLONASE ALLERGY RELIEF 50 MCG/ACT NASAL SUSPENSION One spray each nostril BID x 1 week then daily FLUTICASONE PROPIONATE 97973016111 No Longer Active Mason Loredo MD Active FLUVOXAMINE MALEATE 100 MG ORAL TABLET take one tab every AM et HS, and take 1 /2 tab at noon FLUVOXAMINE MALEATE 73423657255 No Longer Active Mason Loredo MD Active BD PEN NEEDLE MINI U/F 31G X 5 MM 4 a day INSULIN PEN NEEDLE 00128133771 No Longer Active Maosn Loredo MD Active AMITIZA 24 MCG ORAL CAPSULE Take one capsule BID for constipation LUBIPROSTONE 55546972632 No Longer Active Mason Loredo MD Active TRUEPLUS LANCETS 30G 3 a day LANCETS 15005187511 No Longer Active Mason Loredo MD Active CORICIDIN HBP CONGESTION/COUGH 10-200 MG ORAL CAPSULE Take as directed on box as needed for cold/flu symptoms DEXTROMETHORPHAN- GUAIFENESIN 01501069368 No Longer Active Mason Loredo MD Active OMEGA-3 300 MG ORAL CAPSULE 4 caps by mouth daily OMEGA-3 FATTY ACIDS 90430631693 No Longer Active Mason Loredo MD Active HUMALOG KWIKPEN 100 UNIT/ML SUBCUTANEOUS SOLUTION PEN-INJECTOR sliding scale if needed INSULIN LISPRO (HUMAN) 29902947792 No Longer Active Mason Loredo MD Active TRUETEST TEST IN VITRO STRIP check blood sugars 3x/day GLUCOSE BLOOD 56717366620 No Longer Active Mason Loredo MD Active ALFUZOSIN HCL ER 10 MG ORAL TABLET EXTENDED RELEASE 24 HOUR 1 tablet daily ALFUZOSIN HCL 82560856347 No Longer Active Mason Loredo MD Active BD INSULIN SYRINGE 28G X 1/2" 1 ML 1 four times per day INSULIN SYRINGE-NEEDLE U-100 87451986419 No Longer Active Mason Loredo MD Active LEVEMIR FLEXTOUCH 100 UNIT/ML SUBCUTANEOUS SOLUTION PEN-INJECTOR 60 units SQ each evening, for diabetes INSULIN DETEMIR 11843489555 No Longer Active Mason Loredo MD Active METFORMIN HCL ER (MOD) 500 MG ORAL TABLET EXTENDED RELEASE 24 HOUR give two tabs PO BID METFORMIN HCL 17607034088 Active Mason Loredo MD Active LACTULOSE 20 GM/30ML ORAL SOLUTION give 30 Ml PO BID PRN LACTULOSE 35687497435 Active Mason Loredo MD Active COLACE 100 MG ORAL CAPSULE 1 tab BID PRN DOCUSATE SODIUM 95809172688 Active Mason Loredo MD Active TAMSULOSIN HCL 0.4 MG ORAL CAPSULE give 2 capsules PO each evening TAMSULOSIN HCL 04344742922 Active Mason Loredo MD Active [facility] MELATONIN 3 MG ORAL TABLET give 1 tab by mouth at HS MELATONIN 23557988133 Active Mason Loredo MD Active LATANOPROST 0.005 % OPHTHALMIC SOLUTION instill 1 drop in both eyes at bed time LATANOPROST 14084872476 Active Mason Loredo MD Active AMARYL 2 MG ORAL TABLET give 2.5 tabs PO daily GLIMEPIRIDE 72808135309 Active Mason Loredo MD Active MIRALAX ORAL POWDER 17g by mouth q12h, for constipation POLYETHYLENE GLYCOL 3350 41063886245 Active Mason Loredo MD Active IBUPROFEN 400 MG ORAL TABLET 1 tab Q6H PRN IBUPROFEN 69212666143 Active Mason Loredo MD Active EFFEXOR XR 37.5 MG ORAL CAPSULE EXTENDED RELEASE 24 HOUR Take one by mouth daily VENLAFAXINE HCL 37639735485 Active Mima Erazo APRN Active FLUVOXAMINE MALEATE 50 MG ORAL TABLET 1 tab by mouth daily 04/01 FLUVOXAMINE MALEATE 04905834375 No Longer Active Mima Erazo APRN Active TRUE METRIX METER w/Device KIT Check blood sugars 3x/day BLOOD GLUCOSE MONITORING SUPPL 56357361860 Active Marvel MARROQUIN Active VITAMIN D 2000 UNIT ORAL CAPSULE Take one by mouth daily CHOLECALCIFEROL 38946340268 Active Mima Erazo APRN Active LATUDA 60 MG ORAL TABLET Take one by mouth daily LURASIDONE HCL 77255632812 No Longer Active Mima Erazo APRN Active CLONAZEPAM 1 MG ORAL TABLET 1 pill by mouth three times daily CLONAZEPAM 22746155330 Active Rhett Luther DO Active [facility] MILK OF MAGNESIA 400 MG/5ML ORAL SUSPENSION 30ml by mouth bid prn MAGNESIUM HYDROXIDE 75426165421 Active Mason Loredo MD Active TRAVATAN Z 0.004 % OPHTHALMIC SOLUTION 1 gtt each eye daily TRAVOPROST 73821146640 No Longer Active Mason Loredo MD Active LISINOPRIL 20 MG ORAL TABLET 1 BID LISINOPRIL 49615538817 No Longer Active Mason Loredo MD Active ZOLPIDEM TARTRATE 10 MG ORAL TABLET take at bedtime ZOLPIDEM TARTRATE 04754958356 No Longer Active Mason Loredo MD Active HYDROCODONE-ACETAMINOPHEN 5-325 MG ORAL TABLET 2 tabs by mouth three times daily for pain HYDROCODONE-ACETAMINOPHEN 65745349827 No Longer Active Mason Loredo MD Active ZOFRAN 4 MG ORAL TABLET 1 po q4hr PRN Nausea ONDANSETRON HCL 88779779007 No Longer Active Mason Loredo MD Active LOMOTIL 2.5-0.025 MG ORAL TABLET take 1-2 tabs PO after each stool, no more than 8 in 24 hours DIPHENOXYLATE-ATROPINE 84442184337 No Longer Active Mason Loredo MD Active COLACE 100 MG ORAL CAPSULE 1 pill by mouth twice daily, for constipation 2014 DOCUSATE SODIUM 12787284765 No Longer Active Mima Erazo APRN Active TOLTERODINE TARTRATE 2 MG ORAL TABLET 1 pill twice daily, for bladder TOLTERODINE TARTRATE 45230308990 No Longer Active Vanessa Hickey MD Active AMITIZA 24 MCG ORAL CAPSULE Take one capsule BID for constipation. LUBIPROSTONE 43054694865 No Longer Active Vanessa Hickey MD Active METOPROLOL SUCCINATE ER 100 MG ORAL TABLET EXTENDED RELEASE 24 HOUR 1 by mouth daily for blood pressure METOPROLOL SUCCINATE 18814678744 No Longer Active Grace Azam RMA Active METFORMIN HCL ER 500 MG ORAL TABLET EXTENDED RELEASE 24 HOUR Take three tablets by mouth everyday METFORMIN HCL 86581167677 No Longer Active Grace Azam RMA Active LOVAZA 1 GM ORAL CAPSULE 4 daily (for triglycerides) IKAND-3-VIOY ETHYL ESTERS 50344309412 No Longer Active Grace Azam RMA Active TRAZODONE HCL 100 MG ORAL TABLET 1 tab by mouth for sleep TRAZODONE HCL 65660660604 No Longer Active Grace Azam RMA Active NOVOFINE 32G X 6 MM use one four times per day INSULIN PEN NEEDLE 78886526517 No Longer Active Grace Azam RMA Active BACTROBAN 2 % EXTERNAL CREAM Apply to affected area BID for up to 10 days MUPIROCIN CALCIUM 08817637739 No Longer Active Grace Azam RMA Active KEFLEX 500 MG ORAL CAPSULE 1 po BID x 7 days CEPHALEXIN 34549693605 No Longer Active Cherelle Avila APRN Active FLUVOXAMINE MALEATE 100 MG ORAL TABLET Take one (1) tablet by mouth am, 1/2 at noon FLUVOXAMINE MALEATE 35236028188 No Longer Active Mima Erazo APRN Active FLUVOXAMINE MALEATE 100 MG ORAL TABLET Take 1/2 tab at noon 03/04 FLUVOXAMINE MALEATE 83005726742 No Longer Active Cherelle Avila ALBAN Active ACCU-CHEK ROSA DEVICE Use device to check blood sugars BLOOD GLUCOSE MONITORING SUPPL 35714636338 No Longer Active Marvel MARROQUIN Active ACCU-CHEK ROSA IN VITRO STRIP use strips with device to check blood sugars 3 times daily GLUCOSE BLOOD 88188609776 No Longer Active Marvel MARROQUIN Active VERAPAMIL HCL ER 180 MG ORAL TABLET EXTENDED RELEASE 1 pill by mouth twice daily, for migraine prevention VERAPAMIL HCL 44471236172 Active Mimacecily Erazo APRN Active CYCLOBENZAPRINE HCL 10 MG ORAL TABLET 1 tablet by mouth three times daily, scheduled CYCLOBENZAPRINE HCL 65136090429 No Longer Active Alina Castaneda MD PhD Active HUMALOG 100 UNIT/ML SUBCUTANEOUS SOLUTION Take 20 units with breakfast, 10u with lunch and suppetr. INSULIN LISPRO (HUMAN) 09764433179 No Longer Active Alina Castaneda MD PhD Active TRUETEST TEST IN VITRO STRIP check sugars 4x/day GLUCOSE BLOOD 36870263740 No Longer Active Alina Castaneda MD PhD Active MORPHINE SULFATE 30 MG ORAL TABLET 1 pill by mouth twice daily, for pain 2013 MORPHINE SULFATE 05834039525 No Longer Active Mason Loredo MD Active ACYCLOVIR 400 MG ORAL TABLET 1 pill three times daily x 5 days, for cold sore outbreak ACYCLOVIR 19883046088 No Longer Active Alina Castaneda MD PhD Active PENICILLIN V POTASSIUM 500 MG ORAL TABLET 1 pill by mouth three times daily PENICILLIN V POTASSIUM 55200108851 No Longer Active Alina Castaneda MD PhD Active UROXATRAL 10 MG ORAL TABLET EXTENDED RELEASE 24 HOUR Take 1 tablet by mouth daily ALFUZOSIN HCL 82438859749 No Longer Active Alina Castaneda MD PhD Active THIOTHIXENE 5 MG ORAL CAPSULE by mouth twice a day THIOTHIXENE 24681224241 No Longer Active Alina Castaneda MD PhD Active ZYPREXA 7.5 MG ORAL TABLET 1 at HS OLANZAPINE 93957144892 No Longer Active Alina Castaneda MD PhD Active DETROL LA 4 MG ORAL CAPSULE EXTENDED RELEASE 24 HOUR Take 1 tablet by mouth daily TOLTERODINE TARTRATE 18123176404 No Longer Active Alina Castaneda MD PhD Active TERESE CONTOUR TEST IN VITRO STRIP monitor blood sugars 3x/day GLUCOSE BLOOD 72820795111 No Longer Active Alina Castaneda MD PhD Active EQL TRUETEST TEST IN VITRO STRIP Test blood sugar TID GLUCOSE BLOOD 24463960067 No Longer Active Alina Castaneda MD PhD Active FLUTICASONE PROPIONATE 50 MCG/ACT NASAL SUSPENSION 2 sprays each nostril qDay x 30 days FLUTICASONE PROPIONATE 39890636645 No Longer Active Alina Castaneda MD PhD Active IBUPROFEN 200 MG ORAL TABLET 1 Q 6 hr. PRN IBUPROFEN 65227107234 No Longer Active Alina Castaneda MD PhD Active NIACIN ER 500 MG ORAL TABLET EXTENDED RELEASE 4 qHS (for triglycerides) 01/13 NIACIN 38992848913 No Longer Active Alina Castaneda MD PhD Active SAPHRIS 5 MG SUBLINGUAL TABLET SUBLINGUAL by mouth twice a day ASENAPINE MALEATE 59358527284 No Longer Active Maliheh Ziglari MEDICAL DOCTOR NUCLEAR MEDICINE Active ACETAMINOPHEN 500 MG ORAL TABLET 2 Q 6 hr. PRN ACETAMINOPHEN 82444477637 No Longer Active Maliheh Ziglari MEDICAL DOCTOR NUCLEAR MEDICINE Active ORPHENADRINE CITRATE ER 100 MG ORAL TABLET EXTENDED RELEASE 12 HOUR 1 every 12 hr. as needed ORPHENADRINE CITRATE 33775324486 No Longer Active Alina Castaneda MD PhD Active NIACIN ER 500 MG ORAL TABLET EXTENDED RELEASE 2 qHS NIACIN 37389265387 No Longer Active Alina Castaneda MD PhD Active AMOXICILLIN 500 MG ORAL CAPSULE 2 po BID x 10 days AMOXICILLIN 67713650933 No Longer Active Alina Castaneda MD PhD Active HYDROCODONE-ACETAMINOPHEN 7.5-325 MG ORAL TABLET 1 four times a day as needed for pain HYDROCODONE-ACETAMINOPHEN 75804134148 No Longer Active Alina Castaneda MD PhD Active DOXEPIN HCL 10 MG ORAL CAPSULE Take 1 tablet by mouth daily DOXEPIN HCL 98947004799 No Longer Active Salina Han A Active NAVANE 10 MG CAPS 1/2 tablet twice a day THIOTHIXENE No Longer Active Salina Han A Active CYCLOBENZAPRINE HCL 10 MG ORAL TABLET 1/2 tablet by mouth every 8 hours as needed for muscle spasms CYCLOBENZAPRINE HCL 34992463711 No Longer Active Alina Castaneda MD PhD Active BACTROBAN 2 % EXTERNAL CREAM apply to ear and nose twice daily MUPIROCIN CALCIUM 09459244807 No Longer Active Alina Castaneda MD PhD Active HYDROCODONE-ACETAMINOPHEN 5-325 MG ORAL TABLET take one tablet by mouth every four hours as needed for pain HYDROCODONE-ACETAMINOPHEN 09281636171 No Longer Active Alina Castaneda MD PhD Active ZYPREXA 5 MG ORAL TABLET take one tablet by mouth every evening OLANZAPINE 84807749966 No Longer Active Alina Castaneda MD PhD Active ALBUTEROL SULFATE (2.5 MG/3ML) 0.083% INHALATION NEBULIZATION SOLUTION one vial per nebulizer TID and PRN cough/soa ALBUTEROL SULFATE 14730124133 No Longer Active Alina Castaneda MD PhD Active GUAIFENESIN ER 600 MG ORAL TABLET EXTENDED RELEASE 12 HOUR 1 tablet by mouth twice daily if needed for cough GUAIFENESIN 79719405188 No Longer Active Marvel MARROQUIN Active AZITHROMYCIN 500 MG INTRAVENOUS SOLUTION RECONSTITUTED 1 po q day AZITHROMYCIN 50873551873 No Longer Active Alina Castaneda MD PhD Active PROMETHAZINE-CODEINE 6.25-10 MG/5ML ORAL SYRUP 1 tsp po q 6 hours prn cough PROMETHAZINE-CODEINE 86740820605 No Longer Active Alina Castaneda MD PhD Active CEFDINIR 300 MG ORAL CAPSULE by mouth twice a day CEFDINIR 13252792571 No Longer Active Alina Castaneda MD PhD Active METFORMIN HCL ER 500 MG ORAL TABLET EXTENDED RELEASE 24 HOUR Take 3 tablets by mouth everyday METFORMIN HCL 30832774667 No Longer Active Alina Castaneda MD PhD Active LEVEMIR 100 UNIT/ML SUBCUTANEOUS SOLUTION 90 units SQ qHS INSULIN DETEMIR 01279157524 No Longer Active Marvel MARROQUIN Active TOPROL XL 100 MG ORAL TABLET EXTENDED RELEASE 24 HOUR 1 @ HS METOPROLOL SUCCINATE 87843559252 No Longer Active Marvel MARROQUIN Active ALLOPURINOL 300 MG ORAL TABLET Take one by mouth daily ALLOPURINOL 40917798089 Active Mima Erazo CHILD CARE COUNSELOR Active ZYPREXA 10 MG ORAL TABLET Take one by mouth daily OLANZAPINE 28812291438 No Longer Active Alina Castaneda MD PhD Active NOVOLOG 100 UNIT/ML SUBCUTANEOUS SOLUTION 40 units with every meal INSULIN ASPART 93132951649 No Longer Active Alina Castaneda MD PhD Active VERAPAMIL HCL ER 120 MG ORAL TABLET EXTENDED RELEASE 1 qPM 09/08 VERAPAMIL HCL 43540877046 No Longer Active Salina ROJAS Active ZYPREXA 15 MG ORAL TABLET Take 1 tablet by mouth daily OLANZAPINE 32310854270 No Longer Active Marvel MARROQUIN Active ALBUTEROL SULFATE (2.5 MG/3ML) 0.083% INHALATION NEBULIZATION SOLUTION 1 neb tid and prn cough ALBUTEROL SULFATE 96745134860 No Longer Active Alina Castaneda MD PhD Active LANTUS 100 UNIT/ML SUBCUTANEOUS SOLUTION 60 units sq q hs INSULIN GLARGINE 05648961169 No Longer Active CRYSTAL Suarez Active ALBUTEROL SULFATE (2.5 MG/3ML) 0.083% INHALATION NEBULIZATION SOLUTION 1 neb tid and prn cough ALBUTEROL SULFATE (2.5 MG/3ML) 0.083% INHALATION NEBULIZATION SOLUTION 339041 ALBUTEROL SULFATE Inactive ZYPREXA 15 MG ORAL TABLET Take 1 tablet by mouth daily ZYPREXA 15 MG ORAL TABLET 483392 OLANZAPINE Inactive VERAPAMIL HCL ER 120 MG ORAL TABLET EXTENDED RELEASE 1 qPM 09/08 VERAPAMIL HCL ER 120 MG ORAL TABLET EXTENDED RELEASE VERAPAMIL HCL Inactive ZYPREXA 10 MG ORAL TABLET Take one by mouth daily ZYPREXA 10 MG ORAL TABLET 598389 OLANZAPINE Inactive TOPROL XL 100 MG ORAL TABLET EXTENDED RELEASE 24 HOUR 1 @ HS TOPROL XL 100 MG ORAL TABLET EXTENDED RELEASE 24 HOUR METOPROLOL SUCCINATE Inactive LEVEMIR 100 UNIT/ML SUBCUTANEOUS SOLUTION 90 units SQ qHS LEVEMIR 100 UNIT/ML SUBCUTANEOUS SOLUTION INSULIN DETEMIR Inactive PROMETHAZINE-CODEINE 6.25-10 MG/5ML ORAL SYRUP 1 tsp po q 6 hours prn cough PROMETHAZINE-CODEINE 6.25-10 MG/5ML ORAL SYRUP 700327 PROMETHAZINE-CODEINE Inactive GUAIFENESIN ER 600 MG ORAL TABLET EXTENDED RELEASE 12 HOUR 1 tablet by mouth twice daily if needed for cough GUAIFENESIN ER 600 MG ORAL TABLET EXTENDED RELEASE 12 HOUR GUAIFENESIN Inactive ALBUTEROL SULFATE (2.5 MG/3ML) 0.083% INHALATION NEBULIZATION SOLUTION one vial per nebulizer TID and PRN cough/soa ALBUTEROL SULFATE (2.5 MG/3ML) 0.083% INHALATION NEBULIZATION SOLUTION 286670 ALBUTEROL SULFATE Inactive ZYPREXA 5 MG ORAL TABLET take one tablet by mouth every evening ZYPREXA 5 MG ORAL TABLET 629942 OLANZAPINE Inactive HYDROCODONE-ACETAMINOPHEN 5-325 MG ORAL TABLET take one tablet by mouth every four hours as needed for pain HYDROCODONE-ACETAMINOPHEN 5-325 MG ORAL TABLET 864982 HYDROCODONE-ACETAMINOPHEN Inactive BACTROBAN 2 % EXTERNAL CREAM apply to ear and nose twice daily BACTROBAN 2 % EXTERNAL CREAM 510002 MUPIROCIN CALCIUM Inactive CYCLOBENZAPRINE HCL 10 MG ORAL TABLET 1/2 tablet by mouth every 8 hours as needed for muscle spasms CYCLOBENZAPRINE HCL 10 MG ORAL TABLET 029067 CYCLOBENZAPRINE HCL Inactive NAVANE 10 MG CAPS 1/2 tablet twice a day NAVANE 10 MG CAPS THIOTHIXENE Inactive DOXEPIN HCL 10 MG ORAL CAPSULE Take 1 tablet by mouth daily DOXEPIN HCL 10 MG ORAL CAPSULE 1841767 DOXEPIN HCL Inactive HYDROCODONE-ACETAMINOPHEN 7.5-325 MG ORAL TABLET 1 four times a day as needed for pain HYDROCODONE-ACETAMINOPHEN 7.5-325 MG ORAL TABLET 270528 HYDROCODONE-ACETAMINOPHEN Inactive NIACIN ER 500 MG ORAL [...] hr. PRN ACETAMINOPHEN 500 MG ORAL TABLET 701381 ACETAMINOPHEN Inactive SAPHRIS 5 MG SUBLINGUAL TABLET SUBLINGUAL by mouth twice a day SAPHRIS 5 MG SUBLINGUAL TABLET SUBLINGUAL ASENAPINE MALEATE Inactive NIACIN ER 500 MG ORAL TABLET EXTENDED RELEASE 4 qHS (for triglycerides) 01/13 NIACIN ER 500 MG ORAL TABLET EXTENDED RELEASE NIACIN Inactive IBUPROFEN 200 MG ORAL TABLET 1 Q 6 hr. PRN IBUPROFEN 200 MG ORAL TABLET 538298 IBUPROFEN Inactive FLUTICASONE PROPIONATE 50 MCG/ACT NASAL SUSPENSION 2 sprays each nostril qDay x 30 days FLUTICASONE PROPIONATE 50 MCG/ACT NASAL SUSPENSION 1732383 FLUTICASONE PROPIONATE Inactive EQL TRUETEST TEST IN [...] at HS ZYPREXA 7.5 MG ORAL TABLET 121030 OLANZAPINE Inactive THIOTHIXENE 5 MG ORAL CAPSULE by mouth twice a day THIOTHIXENE 5 MG ORAL CAPSULE 258323 THIOTHIXENE Inactive UROXATRAL 10 MG ORAL TABLET EXTENDED RELEASE 24 HOUR Take 1 tablet by mouth daily UROXATRAL 10 MG ORAL TABLET EXTENDED RELEASE 24 HOUR ALFUZOSIN HCL Inactive ACYCLOVIR 400 MG ORAL TABLET 1 pill three times daily x 5 days, for cold sore outbreak ACYCLOVIR 400 MG ORAL TABLET 227661 ACYCLOVIR Inactive TRUETEST TEST IN VITRO STRIP check sugars 4x/day TRUETEST TEST IN VITRO STRIP GLUCOSE BLOOD Inactive HUMALOG 100 UNIT/ML SUBCUTANEOUS SOLUTION Take 20 units with breakfast, 10u with lunch and suppetr. HUMALOG 100 UNIT/ML SUBCUTANEOUS SOLUTION INSULIN LISPRO (HUMAN) Inactive CYCLOBENZAPRINE HCL 10 MG ORAL TABLET 1 tablet by mouth three times daily, scheduled CYCLOBENZAPRINE HCL 10 MG ORAL TABLET 486829 CYCLOBENZAPRINE HCL Inactive ACCU-CHEK ROSA IN VITRO STRIP use strips with device to check blood sugars 3 times daily ACCU-CHEK ROSA IN VITRO STRIP GLUCOSE BLOOD Inactive ACCU-CHEK ROSA DEVICE Use device to check blood sugars ACCU-CHEK ROSA DEVICE BLOOD GLUCOSE MONITORING SUPPL Inactive FLUVOXAMINE MALEATE 100 MG ORAL TABLET Take 1/2 tab at noon 03/04 FLUVOXAMINE MALEATE 100 MG ORAL TABLET 125310 FLUVOXAMINE MALEATE Inactive FLUVOXAMINE MALEATE 100 MG ORAL TABLET Take one (1) tablet by mouth am, 1/2 at noon FLUVOXAMINE MALEATE 100 MG ORAL TABLET 483435 FLUVOXAMINE MALEATE Inactive BACTROBAN 2 % EXTERNAL CREAM Apply to affected area BID for up to 10 days BACTROBAN 2 % EXTERNAL CREAM 604093 MUPIROCIN CALCIUM Inactive NOVOFINE 32G X 6 MM use one four times per day NOVOFINE 32G X 6 MM INSULIN PEN NEEDLE Inactive TRAZODONE HCL 100 MG ORAL TABLET 1 tab by mouth for sleep TRAZODONE HCL 100 MG ORAL TABLET 749992 TRAZODONE HCL Inactive LOVAZA 1 GM ORAL CAPSULE 4 daily (for triglycerides) LOVAZA 1 GM ORAL CAPSULE 562563 [id number] ETHYL ESTERS Inactive METFORMIN HCL ER 500 [...] bladder TOLTERODINE TARTRATE 2 MG ORAL TABLET 083633 TOLTERODINE TARTRATE Inactive COLACE 100 MG ORAL CAPSULE 1 pill by mouth twice daily, for constipation 2014 COLACE 100 MG ORAL CAPSULE 8372887 DOCUSATE SODIUM Inactive LOMOTIL 2.5-0.025 MG ORAL TABLET take 1-2 tabs PO after each stool, no more than 8 in 24 hours LOMOTIL 2.5-0.025 MG ORAL TABLET 4453447 DIPHENOXYLATE-ATROPINE Inactive ZOFRAN 4 MG ORAL TABLET 1 po q4hr PRN Nausea ZOFRAN 4 MG ORAL TABLET 675609 ONDANSETRON HCL Inactive HYDROCODONE-ACETAMINOPHEN 5-325 MG ORAL TABLET 2 tabs by mouth three times daily for pain HYDROCODONE-ACETAMINOPHEN 5-325 MG ORAL TABLET 896130 HYDROCODONE-ACETAMINOPHEN Inactive ZOLPIDEM TARTRATE 10 MG ORAL TABLET take at bedtime ZOLPIDEM TARTRATE 10 MG ORAL TABLET 275885 ZOLPIDEM TARTRATE Inactive LISINOPRIL 20 MG ORAL TABLET 1 BID LISINOPRIL 20 MG ORAL TABLET 152251 LISINOPRIL Inactive TRAVATAN Z 0.004 % OPHTHALMIC SOLUTION 1 gtt each eye daily TRAVATAN Z 0.004 % OPHTHALMIC SOLUTION TRAVOPROST Inactive LATUDA 60 MG ORAL TABLET Take one by mouth daily LATUDA 60 MG ORAL TABLET LURASIDONE HCL Inactive FLUVOXAMINE MALEATE 50 MG ORAL TABLET 1 tab by mouth daily 04/01 FLUVOXAMINE MALEATE 50 MG ORAL TABLET 506327 FLUVOXAMINE MALEATE Inactive LEVEMIR FLEXTOUCH 100 UNIT/ML [...] 30G 3 a day TRUEPLUS LANCETS 30G [id number] LANCETS Inactive AMITIZA 24 MCG ORAL CAPSULE [...] noon FLUVOXAMINE MALEATE 100 MG ORAL TABLET 812916 FLUVOXAMINE MALEATE Inactive FLONASE ALLERGY RELIEF 50 MCG/ACT NASAL SUSPENSION One spray each nostril BID x 1 week then daily FLONASE ALLERGY RELIEF 50 MCG/ACT NASAL SUSPENSION 4908546 FLUTICASONE PROPIONATE Inactive IMODIUM A-D 2 MG ORAL TABLET 1 tab QID as needed IMODIUM A-D 2 MG ORAL TABLET 956455 LOPERAMIDE HCL Inactive MYLANTA GAS RELIEF MAXIMUM STR 125 MG ORAL CAPSULE 30cc every 4 hours prn MYLANTA GAS RELIEF MAXIMUM STR 125 MG ORAL CAPSULE SIMETHICONE Inactive TRUEPLUS LANCETS 30G 3x a day TRUEPLUS LANCETS 30G [id number] LANCETS Inactive TRUE METRIX BLOOD GLUCOSE TEST [...] headaches TRAZODONE HCL 100 MG ORAL TABLET 577994 TRAZODONE HCL Inactive TYLENOL 8 HOUR 650 MG ORAL TABLET EXTENDED RELEASE 1 tab QID prn TYLENOL 8 HOUR 650 MG ORAL TABLET EXTENDED RELEASE ACETAMINOPHEN Inactive [facility] LUBRICANT EYE DROPS 0.4-0.3 % OPHTHALMIC SOLUTION [facility] LUBRICANT EYE DROPS 0.4-0.3 % OPHTHALMIC SOLUTION POLYETHYL GLYCOL- PROPYL GLYCOL Inactive CEFDINIR 300 MG ORAL CAPSULE by mouth twice a day CEFDINIR 300 MG ORAL CAPSULE 908305 CEFDINIR Inactive AZITHROMYCIN 500 MG INTRAVENOUS SOLUTION RECONSTITUTED 1 po q day AZITHROMYCIN 500 MG INTRAVENOUS SOLUTION RECONSTITUTED 27587746904 AZITHROMYCIN Inactive AMOXICILLIN 500 MG ORAL CAPSULE 2 po BID x 10 days AMOXICILLIN 500 MG ORAL CAPSULE 362985 AMOXICILLIN Inactive PENICILLIN V POTASSIUM 500 MG ORAL TABLET 1 pill by mouth three times daily PENICILLIN V POTASSIUM 500 MG ORAL TABLET 511271 PENICILLIN V POTASSIUM Inactive KEFLEX 500 MG ORAL CAPSULE 1 po BID x 7 days KEFLEX 500 MG ORAL CAPSULE 437202 CEPHALEXIN Inactive Immunizations Vaccine Administration Date Value [...] Fluvirin, Fluarix, Agriflu(>=18 yo)) Fluzone (>3 yrs.) [[id number]] Influenza, seasonal, injectable pneumococcal immunization administered Pneumovax [...] Results Date Name Value Unit Range Description Office Visit: [facility] from [facility] - Lab PSA (prostate specific antigent), recommendation and action PSA ordered Encounters Code Encounter Date Provider Facility [id number] Level 3 Est. 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 Patient 16:52:51 CDT Vanessa Hickey MD [facility] CPT-52704 Level 3 Est. Patient 17:40:16 [facility] Level 3 Est. Patient 14:34:52 CDT Vanessa Hickey MD [facility] CPT-89662 Level 3 Est. Patient 16:27:51 CDT [facility] CPT-89102 Level 3 Est. Patient 14:39:00 BED PLACEMENT COORDINATOR Vanessa Hickey MD [facility] CPT-27343 Level 2 Est. Patient 18:43:34 CDT [facility] [facility] CPT-92965 Level 3 Est. Patient 16:22:09 CDT Cherelle Avila [facility]-80414 Level 4 Est. Patient 17:55:14 CDT Mima Erazo [facility] CPT-80353 Level 2 Est. Patient 17:13:21 CDT Alina Castaneda MD [facility] [place][note 2]19912 Level 3 Est. Patient 14:46:15 CDT Vanessa Hickey MD [facility]-95198 Level 3 Est. Patient 09:34:56 CDT Alina Castaneda MD [facility]77989 Level 3 Est. Patient 21:40:19 CDT Mima Erazo [facility] [place] [facility] [place]-26882 Level 3 Est. Patient 09:26:40 CDT Marvel [facility]53368 Level 3 Est. Patient 12:36:43 CDT Vanessa Hickey MD [facility]-40746 Level 3 Est. Patient 12:57:49 CDT Vanessa Hickey MD [facility]32740 Level 3 Est. Patient 00:28:25 CDT Alina Castaneda MD [facility]-06553 Level 2 Est. Patient 12:52:14 CDT Alina Castaneda MD [facility]44700 Level 3 Est. Patient 11:51:18 BED PLACEMENT COORDINATOR Alina Castaneda MD [facility] [place][note 2]71557 Level 3 Est. Patient 10:09:22 BED PLACEMENT COORDINATOR Alina Castaneda MD [facility]70051 Level 3 Est. Patient 14:36:26 BED PLACEMENT COORDINATOR Marvel Charles [facility]-74991 Level 3 Est. Patient 13:34:47 BED PLACEMENT COORDINATOR Alina Castaneda MD [facility]-31742 Level 3 Est. Patient 19:52:08 BED PLACEMENT COORDINATOR Alina Castaneda MD [facility]-58773 Level 3 Est. Patient 10:01:51 BED PLACEMENT COORDINATOR [place] Araceli [facility]-49592 Level 3 Est. Patient 21:54:06 CDT Vanessa Hickey MD [facility]-56896 Level 3 Est. Patient 08:54:46 CDT Alina Castaneda MD [facility] [place][note 2]21319 Level 3 Est. Patient 09:32:11 CDT Marvel Charles [facility]-26200 Level 3 Est. Patient 12:02:49 CDT Alina Castaneda MD [facility]-63363 Level 3 Est. Patient 19:17:33 CDT Alina Castaneda MD [facility]-75180 Level 3 Est. Patient 13:19:10 CDT Marvel Charles [facility]-84727 Level 3 Est. Patient 08:20:05 CDT Alina Castaneda MD [facility]-28518 Level 3 Est. Patient 15:17:18 CDT Alina Castaneda MD [facility]-96651 Level 3 Est. Patient 14:25:36 BED PLACEMENT COORDINATOR Brooksjohn Charles [facility]-01204 Level 3 Est. Patient 10:09:15 BED PLACEMENT COORDINATOR Brooksjohn Charles [facility]-36576 Level 3 Est. Patient 21:28:43 CDT Alina Castaneda MD [facility]-28546 Level 3 Est. Patient 15:20:11 CDT Maliheh Ziglari [facility]-94607 Level 4 Est. Patient 19:08:12 CDT Alina Castaneda MD [facility]-01973 Level 3 Est. Patient 15:06:39 CDT Brooksnivia Charles [facility]-93222 Level 4 Est. Patient 17:48:15 CDT Alina Castaneda MD [facility]-98277 Level 3 Est. Patient 14:53:49 CDT Alina Castaneda MD [facility]-25767 Level 3 Est. Patient 09:35:16 CDT Alina Castaneda MD [facility]-98541 Level 3 Est. Patient 12:23:22 CDT Alina Castaneda MD [facility]-70143 Level 3 Est. Patient 16:19:15 CDT Alina Castaneda MD [facility]-13877 Level 3 Est. Patient 21:39:56 BED PLACEMENT COORDINATOR Alina Castaneda MD [facility]-65181 Level 4 Est. Patient 14:12:56 BED PLACEMENT COORDINATOR Alina Castaneda MD [facility]-43127 Level 2 Est. Patient 15:34:57 BED PLACEMENT COORDINATOR Alina Castaneda MD [facility]-79870 Level 3 Est. Patient 12:17:04 BED PLACEMENT COORDINATOR Alina Castaneda MD [facility]-33126 Level 3 Est. Patient 09:18:18 BED PLACEMENT COORDINATOR Marvel Charles [facility]-69766 Level 2 Est. Patient 21:50:24 CDT Alina Castaneda MD [facility] [place][note 2]77038 Level 3 Est. Patient 09:17:28 CDT Marvel Charles [facility] [place] CPT-09102 Level 4 Est. Patient 18:54:02 CDT Alina Castaneda MD [facility] CPT-71414 Level 3 Est. Patient 10:47:10 CDT Alina Castaneda MD [facility]-23083 Level 3 Est. Patient 09:22:20 CDT Brooksjohn Charles [facility] [place] CPT-34118 Level 3 Est. Patient 16:39:43 [facility]T [facility] [place] CPT-28149 Level 3 Est. Patient 16:05:16 CDT Alina Castaneda MD [facility] CPT-78708 Level 3 Est. Patient 00:29:15 CDT Alina Castaneda MD [facility] CPT-38359 Level 3 Est. Patient 10:49:22 BED PLACEMENT COORDINATOR Marvel Charles [facility] [place] CPT-69098 Level 3 Est. Patient 21:30:19 BED PLACEMENT COORDINATOR Alina Castaneda MD [facility] CPT-12039 Level 4 Est. Patient 17:04:11 BED PLACEMENT COORDINATOR Brooksjohn Charles [facility] [place] CPT-93352 Level 3 Est. Patient 15:34:11 BED PLACEMENT COORDINATOR Marvel Charles [facility] [place] CPT-18616 Level 2 Est. Patient 12:51:58 BED PLACEMENT COORDINATOR Alina Castaneda MD PhD [facility] CPT-00754 Level 3 Est. Patient 13:20:01 BED PLACEMENT COORDINATOR Alina Castaneda MD [facility]-81192 Level 3 Est. Patient 09:23:35 CDT Alina Castaneda MD PhD [facility] Procedures Code Procedure Name Date Entry Date Standard Description CPT-TCMM Transitional Care Mgmt-Moderate 12:32:19 CDT CPT-03206 Level 2 Snf 09:01:11 CDT CPT-42695 HGBA1C - LAB USE ONLY 09:30:27 BED PLACEMENT COORDINATOR CPT-44885 BMP - LAB USE ONLY 09:30:27 BED PLACEMENT COORDINATOR CPT-85761 Venipuncture Draw Fee 09:30:26 BED PLACEMENT COORDINATOR CPT-TCMM Transitional Care Mgmt-Moderate 10:25:31 CDT CPT-86851 Bladder Scan 14:34:53 CDT CPT-51119 Bladder Scan 14:39:01 BED PLACEMENT COORDINATOR CPT-TCMM Transitional Care Mgmt-Moderate 10:30:19 BED PLACEMENT COORDINATOR CPT-89224 Bladder Scan 12:36:44 CDT CPT-03765 Bladder Scan 21:54:06 CDT CPT-G0008 Administration of Influenza Virus Vaccine 13:05:26 CDT CPT-16627 Fluzone Quadrivalent Intramuscular Suspension 0.5 ML 13: 05:26 CDT CPT-08182 Administration single or combination vaccine inc oral 11 :49:51 CDT CPT-20917 Pneumovax 11:49:51 CDT CPT-73931 Ribs unilateral 2V 12:37:22 BED PLACEMENT COORDINATOR CPT-75882 Chest 2V Frontal and Lat 17:15:26 CDT CPT-98954 Abx/Therapy Injection 18:54:02 CDT CPT-J0696 Rocephin 1000 mg (Ceftriaxone) 16:00:32 CDT CPT-58507 Chest 2V Frontal and Lat 15:26:45 CDT CPT-34678 Chest 2V Frontal and Lat 10:23:27 CDT CPT-76667 Venipuncture Draw Fee 10:11:00 CDT CPT-20669 Administration single or combination vaccine inc oral 11 :56:38 CDT CPT-53090 Influenza split virus > age 3 11:56:38 CDT CPT-55126 Venipuncture Draw Fee 08:49:54 BED PLACEMENT COORDINATOR CPT-55032 EKG Trac and Interp 17:54:19 BED PLACEMENT COORDINATOR
--- OUTSIDE RECORDS SUMMARY | 2018-07-02 13:09 | XMS REPORT | Clinical Summary ---
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 Diabetes mellitus without mention of complication, type [...] tablet by mouth at bedtime QUETIAPINE FUMARATE 97507468763 Active Mason Loredo MD Active OCEAN NASAL SPRAY SOLUTION 2 sprays in both nostrils every 8 hours as needed for dry mucous membranes SALINE SOLN 38612237937 Active Mason Loredo MD Active BETHANECHOL CHLORIDE 25 MG ORAL TABLET Take 1 tablet mouth four times a day BETHANECHOL CHLORIDE 42302969533 Active Mason Loredo MD Active [facility] LUBRICANT E[facility] DROPS 0.4-0.3 % OPHTHALMIC SOLUTION POLYETHYL GLYCOL-PROPYL GLYCOL 22572889977 No Longer Active Mason Loredo MD Active TYLENOL 8 HOUR 650 MG ORAL TABLET EXTENDED RELEASE 1 tab QID prn ACETAMINOPHEN 15562268787 No Longer Active Mason Loredo MD Active TOPAMAX 25 MG ORAL TABLET 1 tab BID PRN TOPIRAMATE 24582471865 Active Mason Loredo MD Active TIMOPTIC OCUDOSE 0.5 % OPHTHALMIC SOLUTION instill one drop into both eyes q12H TIMOLOL MALEATE 31071959436 Active Mason Loredo MD Active TRAZODONE HCL 100 MG ORAL TABLET 1 every night to prevent headaches TRAZODONE HCL 99032913286 No Longer Active Mason Loredo MD Active TRAVATAN Z 0.004 % OPHTHALMIC SOLUTION 1 drop each eye daily 2017 TRAVOPROST 09439962313 No Longer Active Mason Loredo MD Active LATUDA 60 MG ORAL TABLET 1 tab daily LURASIDONE HCL 80971239506 No Longer Active Mason Loredo MD Active MORPHINE SULFATE ER 30 MG ORAL TABLET EXTENDED RELEASE Take one capsule BID MORPHINE SULFATE 72610638064 No Longer Active Mason Loredo MD Active TRUE METRIX BLOOD GLUCOSE TEST IN VITRO STRIP Check blood sugars 3x/day. 2015 GLUCOSE BLOOD 59561149670 No Longer Active Mason Loredo MD Active TRUEPLUS LANCETS 30G 3x a day LANCETS 84678952080 No Longer Active Mason Loredo MD Active MYLANTA GAS RELIEF MAXIMUM STR 125 MG ORAL CAPSULE 30cc every 4 hours prn SIMETHICONE 52359546967 No Longer Active Mason Loredo MD Active IMODIUM A-D 2 MG ORAL TABLET 1 tab QID as needed LOPERAMIDE HCL 42553778652 No Longer Active Mason Loredo MD Active FLONASE ALLERGY RELIEF 50 MCG/ACT NASAL SUSPENSION One spray each nostril BID x 1 week then daily FLUTICASONE PROPIONATE 32603969754 No Longer Active Mason Loredo MD Active FLUVOXAMINE MALEATE 100 MG ORAL TABLET take one tab every AM et HS, and take 1 /2 tab at noon FLUVOXAMINE MALEATE 48796664073 No Longer Active Mason Loredo MD Active BD PEN NEEDLE MINI U/F 31G X 5 MM 4 a day INSULIN PEN NEEDLE 33811977846 No Longer Active Mason Loredo MD Active AMITIZA 24 MCG ORAL CAPSULE Take one capsule BID for constipation LUBIPROSTONE 07922572330 No Longer Active Mason Loredo MD Active TRUEPLUS LANCETS 30G 3 a day LANCETS 99231818098 No Longer Active Mason Loredo MD Active CORICIDIN HBP CONGESTION/COUGH 10-200 MG ORAL CAPSULE Take as directed on box as needed for cold/flu symptoms DEXTROMETHORPHAN- GUAIFENESIN 33640948146 No Longer Active Mason Loredo MD Active OMEGA-3 300 MG ORAL CAPSULE 4 caps by mouth daily OMEGA-3 FATTY ACIDS 04657198088 No Longer Active Mason Loredo MD Active HUMALOG KWIKPEN 100 UNIT/ML SUBCUTANEOUS SOLUTION PEN-INJECTOR sliding scale if needed INSULIN LISPRO (HUMAN) 04818585674 No Longer Active Mason Loredo MD Active TRUETEST TEST IN VITRO STRIP check blood sugars 3x/day GLUCOSE BLOOD 31342327263 No Longer Active Mason Loredo MD Active ALFUZOSIN HCL ER 10 MG ORAL TABLET EXTENDED RELEASE 24 HOUR 1 tablet daily ALFUZOSIN HCL 20833439666 No Longer Active Mason Loredo MD Active BD INSULIN SYRINGE 28G X 1/2" 1 ML 1 four times per day INSULIN SYRINGE-NEEDLE U-100 28660492335 No Longer Active Mason Loredo MD Active LEVEMIR FLEXTOUCH 100 UNIT/ML SUBCUTANEOUS SOLUTION PEN-INJECTOR 60 units SQ each evening, for diabetes INSULIN DETEMIR 07266597179 No Longer Active Mason Loredo MD Active METFORMIN HCL ER (MOD) 500 MG ORAL TABLET EXTENDED RELEASE 24 HOUR give two tabs PO BID METFORMIN HCL 64369828909 Active Mason Loredo MD Active LACTULOSE 20 GM/30ML ORAL SOLUTION give 30 Ml PO BID PRN LACTULOSE 12732067635 Active Mason Loredo MD Active COLACE 100 MG ORAL CAPSULE 1 tab BID PRN DOCUSATE SODIUM 38921876440 Active Mason Loredo MD Active TAMSULOSIN HCL 0.4 MG ORAL CAPSULE give 2 capsules PO each evening TAMSULOSIN HCL 82664220364 Active Mason Loredo MD Active [facility] MELATONIN 3 MG ORAL TABLET give 1 tab by mouth at HS MELATONIN 81362013949 Active Mason Loredo MD Active LATANOPROST 0.005 % OPHTHALMIC SOLUTION instill 1 drop in both eyes at bed time LATANOPROST 99774395612 Active Mason Loredo MD Active AMARYL 2 MG ORAL TABLET give 2.5 tabs PO daily GLIMEPIRIDE 89066349298 Active Mason Loredo MD Active MIRALAX ORAL POWDER 17g by mouth q12h, for constipation POLYETHYLENE GLYCOL 3350 43781154889 Active Mason Loredo MD Active IBUPROFEN 400 MG ORAL TABLET 1 tab Q6H PRN IBUPROFEN 00288155331 Active Mason Loredo MD Active EFFEXOR XR 37.5 MG ORAL CAPSULE EXTENDED RELEASE 24 HOUR Take one by mouth daily VENLAFAXINE HCL 09488894095 Active Mima Erazo APRN Active FLUVOXAMINE MALEATE 50 MG ORAL TABLET 1 tab by mouth daily 04/01 FLUVOXAMINE MALEATE 91761704432 No Longer Active Mima Erazo APRN Active TRUE METRIX METER w/Device KIT Check blood sugars 3x/day BLOOD GLUCOSE MONITORING SUPPL 45130192776 Active Marvel MARROQUIN Active VITAMIN D 2000 UNIT ORAL CAPSULE Take one by mouth daily CHOLECALCIFEROL 26793743282 Active Mima Erazo APRN Active LATUDA 60 MG ORAL TABLET Take one by mouth daily LURASIDONE HCL 56304443536 No Longer Active Mima Erazo APRN Active CLONAZEPAM 1 MG ORAL TABLET 1 pill by mouth three times daily CLONAZEPAM 31243716970 Active Rhett Luther DO Active [facility] MILK OF MAGNESIA 400 MG/5ML ORAL SUSPENSION 30ml by mouth bid prn MAGNESIUM HYDROXIDE 73543507914 Active Mason Loredo MD Active TRAVATAN Z 0.004 % OPHTHALMIC SOLUTION 1 gtt each eye daily TRAVOPROST 67278342971 No Longer Active Mason Loredo MD Active LISINOPRIL 20 MG ORAL TABLET 1 BID LISINOPRIL 43973910869 No Longer Active Mason Loredo MD Active ZOLPIDEM TARTRATE 10 MG ORAL TABLET take at bedtime ZOLPIDEM TARTRATE 70501664936 No Longer Active Mason Loredo MD Active HYDROCODONE-ACETAMINOPHEN 5-325 MG ORAL TABLET 2 tabs by mouth three times daily for pain HYDROCODONE-ACETAMINOPHEN 82549709620 No Longer Active Mason Loredo MD Active ZOFRAN 4 MG ORAL TABLET 1 po q4hr PRN Nausea ONDANSETRON HCL 40826375397 No Longer Active Mason Loredo MD Active LOMOTIL 2.5-0.025 MG ORAL TABLET take 1-2 tabs PO after each stool, no more than 8 in 24 hours DIPHENOXYLATE-ATROPINE 60238966481 No Longer Active Mason Loredo MD Active COLACE 100 MG ORAL CAPSULE 1 pill by mouth twice daily, for constipation 2014 DOCUSATE SODIUM 68314695564 No Longer Active Mima Erazo APRN Active TOLTERODINE TARTRATE 2 MG ORAL TABLET 1 pill twice daily, for bladder TOLTERODINE TARTRATE 43629760055 No Longer Active Vanessa Hickey MD Active AMITIZA 24 MCG ORAL CAPSULE Take one capsule BID for constipation. LUBIPROSTONE 61515914473 No Longer Active Vanessa Hickey MD Active METOPROLOL SUCCINATE ER 100 MG ORAL TABLET EXTENDED RELEASE 24 HOUR 1 by mouth daily for blood pressure METOPROLOL SUCCINATE 47919281484 No Longer Active Grace Azam RMA Active METFORMIN HCL ER 500 MG ORAL TABLET EXTENDED RELEASE 24 HOUR Take three tablets by mouth everyday METFORMIN HCL 96102593175 No Longer Active Grace Azam RMA Active LOVAZA 1 GM ORAL CAPSULE 4 daily (for triglycerides) XCUOM-4-LAYI ETHYL ESTERS 60280926885 No Longer Active Grace Azam RMA Active TRAZODONE HCL 100 MG ORAL TABLET 1 tab by mouth for sleep TRAZODONE HCL 15266469666 No Longer Active Grace Azam RMA Active NOVOFINE 32G X 6 MM use one four times per day INSULIN PEN NEEDLE 20423701163 No Longer Active Grace Azam RMA Active BACTROBAN 2 % EXTERNAL CREAM Apply to affected area BID for up to 10 days MUPIROCIN CALCIUM 91748114158 No Longer Active Grace Azam RMA Active KEFLEX 500 MG ORAL CAPSULE 1 po BID x 7 days CEPHALEXIN 43504380325 No Longer Active Cherelle Avila APRN Active FLUVOXAMINE MALEATE 100 MG ORAL TABLET Take one (1) tablet by mouth am, 1/2 at noon FLUVOXAMINE MALEATE 59795737521 No Longer Active Mima Erazo APRN Active FLUVOXAMINE MALEATE 100 MG ORAL TABLET Take 1/2 tab at noon 03/04 FLUVOXAMINE MALEATE 45654258379 No Longer Active Cherelle Avila ALBAN Active ACCU-CHEK ROSA DEVICE Use device to check blood sugars BLOOD GLUCOSE MONITORING SUPPL 20532715070 No Longer Active Marvel MARROQUIN Active ACCU-CHEK ROSA IN VITRO STRIP use strips with device to check blood sugars 3 times daily GLUCOSE BLOOD 56262391946 No Longer Active Marvel MARROQUIN Active VERAPAMIL HCL ER 180 MG ORAL TABLET EXTENDED RELEASE 1 pill by mouth twice daily, for migraine prevention VERAPAMIL HCL 58201364897 Active Mimacecily Erazo APRN Active CYCLOBENZAPRINE HCL 10 MG ORAL TABLET 1 tablet by mouth three times daily, scheduled CYCLOBENZAPRINE HCL 50488758389 No Longer Active Alina Castaneda MD PhD Active HUMALOG 100 UNIT/ML SUBCUTANEOUS SOLUTION Take 20 units with breakfast, 10u with lunch and suppetr. INSULIN LISPRO (HUMAN) 49771454144 No Longer Active Alina Castaneda MD PhD Active TRUETEST TEST IN VITRO STRIP check sugars 4x/day GLUCOSE BLOOD 19727055356 No Longer Active Alina Castaneda MD PhD Active MORPHINE SULFATE 30 MG ORAL TABLET 1 pill by mouth twice daily, for pain 2013 MORPHINE SULFATE 31584765237 No Longer Active Mason Loredo MD Active ACYCLOVIR 400 MG ORAL TABLET 1 pill three times daily x 5 days, for cold sore outbreak ACYCLOVIR 56895402422 No Longer Active Alina Castaneda MD PhD Active PENICILLIN V POTASSIUM 500 MG ORAL TABLET 1 pill by mouth three times daily PENICILLIN V POTASSIUM 38047100568 No Longer Active Alina Castaneda MD PhD Active UROXATRAL 10 MG ORAL TABLET EXTENDED RELEASE 24 HOUR Take 1 tablet by mouth daily ALFUZOSIN HCL 01624948855 No Longer Active Alina Castaneda MD PhD Active THIOTHIXENE 5 MG ORAL CAPSULE by mouth twice a day THIOTHIXENE 27740925592 No Longer Active Alina Castaneda MD PhD Active ZYPREXA 7.5 MG ORAL TABLET 1 at HS OLANZAPINE 13334496859 No Longer Active Alina Castaneda MD PhD Active DETROL LA 4 MG ORAL CAPSULE EXTENDED RELEASE 24 HOUR Take 1 tablet by mouth daily TOLTERODINE TARTRATE 95325182921 No Longer Active Alina Castaneda MD PhD Active TERESE CONTOUR TEST IN VITRO STRIP monitor blood sugars 3x/day GLUCOSE BLOOD 07821868544 No Longer Active Alina Castaneda MD PhD Active EQL TRUETEST TEST IN VITRO STRIP Test blood sugar TID GLUCOSE BLOOD 95184788112 No Longer Active Alina Castaneda MD PhD Active FLUTICASONE PROPIONATE 50 MCG/ACT NASAL SUSPENSION 2 sprays each nostril qDay x 30 days FLUTICASONE PROPIONATE 20878788358 No Longer Active Alina Castaneda MD PhD Active IBUPROFEN 200 MG ORAL TABLET 1 Q 6 hr. PRN IBUPROFEN 49061158982 No Longer Active Alina Castaneda MD PhD Active NIACIN ER 500 MG ORAL TABLET EXTENDED RELEASE 4 qHS (for triglycerides) 01/13 NIACIN 44918463944 No Longer Active Alina Castaneda MD PhD Active SAPHRIS 5 MG SUBLINGUAL TABLET SUBLINGUAL by mouth twice a day ASENAPINE MALEATE 28301316884 No Longer Active Maliheh Ziglari CERAMIC PAINTER Active ACETAMINOPHEN 500 MG ORAL TABLET 2 Q 6 hr. PRN ACETAMINOPHEN 33602067204 No Longer Active Maliheh Ziglari CERAMIC PAINTER Active ORPHENADRINE CITRATE ER 100 MG ORAL TABLET EXTENDED RELEASE 12 HOUR 1 every 12 hr. as needed ORPHENADRINE CITRATE 31407798355 No Longer Active Alina Castaneda MD PhD Active NIACIN ER 500 MG ORAL TABLET EXTENDED RELEASE 2 qHS NIACIN 25760831155 No Longer Active Alina Castaneda MD PhD Active AMOXICILLIN 500 MG ORAL CAPSULE 2 po BID x 10 days AMOXICILLIN 01323736286 No Longer Active Alina Castaneda MD PhD Active HYDROCODONE-ACETAMINOPHEN 7.5-325 MG ORAL TABLET 1 four times a day as needed for pain HYDROCODONE-ACETAMINOPHEN 90593870694 No Longer Active Alina Castaneda MD PhD Active DOXEPIN HCL 10 MG ORAL CAPSULE Take 1 tablet by mouth daily DOXEPIN HCL 79607446017 No Longer Active Salina Han A Active NAVANE 10 MG CAPS 1/2 tablet twice a day THIOTHIXENE No Longer Active Salina Han A Active CYCLOBENZAPRINE HCL 10 MG ORAL TABLET 1/2 tablet by mouth every 8 hours as needed for muscle spasms CYCLOBENZAPRINE HCL 92434548618 No Longer Active Alina Castaneda MD PhD Active BACTROBAN 2 % EXTERNAL CREAM apply to ear and nose twice daily MUPIROCIN CALCIUM 48550873930 No Longer Active Alina Castaneda MD PhD Active HYDROCODONE-ACETAMINOPHEN 5-325 MG ORAL TABLET take one tablet by mouth every four hours as needed for pain HYDROCODONE-ACETAMINOPHEN 64016485262 No Longer Active Alina Castaneda MD PhD Active ZYPREXA 5 MG ORAL TABLET take one tablet by mouth every evening OLANZAPINE 01566294375 No Longer Active Alina Castaneda MD PhD Active ALBUTEROL SULFATE (2.5 MG/3ML) 0.083% INHALATION NEBULIZATION SOLUTION one vial per nebulizer TID and PRN cough/soa ALBUTEROL SULFATE 88298453889 No Longer Active Alina Castaneda MD PhD Active GUAIFENESIN ER 600 MG ORAL TABLET EXTENDED RELEASE 12 HOUR 1 tablet by mouth twice daily if needed for cough GUAIFENESIN 08801862577 No Longer Active Marvel MARROQUIN Active AZITHROMYCIN 500 MG INTRAVENOUS SOLUTION RECONSTITUTED 1 po q day AZITHROMYCIN 47318911058 No Longer Active Alina Castaneda MD PhD Active PROMETHAZINE-CODEINE 6.25-10 MG/5ML ORAL SYRUP 1 tsp po q 6 hours prn cough PROMETHAZINE-CODEINE 29142442717 No Longer Active Alina Castaneda MD PhD Active CEFDINIR 300 MG ORAL CAPSULE by mouth twice a day CEFDINIR 87442519224 No Longer Active Alina Castaneda MD PhD Active METFORMIN HCL ER 500 MG ORAL TABLET EXTENDED RELEASE 24 HOUR Take 3 tablets by mouth everyday METFORMIN HCL 61807556881 No Longer Active Alina Castaneda MD PhD Active LEVEMIR 100 UNIT/ML SUBCUTANEOUS SOLUTION 90 units SQ qHS INSULIN DETEMIR 66683500639 No Longer Active Marvel MARROQUIN Active TOPROL XL 100 MG ORAL TABLET EXTENDED RELEASE 24 HOUR 1 @ HS METOPROLOL SUCCINATE 90599510765 No Longer Active Marvel MARROQUIN Active ALLOPURINOL 300 MG ORAL TABLET Take one by mouth daily ALLOPURINOL 73809728703 Active Mima Erazo HEADSTART 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 Active ZYPREXA 10 MG ORAL TABLET Take one by mouth daily OLANZAPINE 79523108611 No Longer Active Alina Castaneda MD PhD Active NOVOLOG 100 UNIT/ML SUBCUTANEOUS SOLUTION 40 units with every meal INSULIN ASPART 10311513686 No Longer Active Alina Castaneda MD PhD Active VERAPAMIL HCL ER 120 MG ORAL TABLET EXTENDED RELEASE 1 qPM 09/08 VERAPAMIL HCL 52781221850 No Longer Active Salina ROJAS Active ZYPREXA 15 MG ORAL TABLET Take 1 tablet by mouth daily OLANZAPINE 86914962117 No Longer Active Marvel MARROQUIN Active ALBUTEROL SULFATE (2.5 MG/3ML) 0.083% INHALATION NEBULIZATION SOLUTION 1 neb tid and prn cough ALBUTEROL SULFATE 97284528107 No Longer Active Alina Castaneda MD PhD Active LANTUS 100 UNIT/ML SUBCUTANEOUS SOLUTION 60 units sq q hs INSULIN GLARGINE 65782060949 No Longer Active CRYSTAL Suarez Active ALBUTEROL SULFATE (2.5 MG/3ML) 0.083% INHALATION NEBULIZATION SOLUTION 1 neb tid and prn cough ALBUTEROL SULFATE (2.5 MG/3ML) 0.083% INHALATION NEBULIZATION SOLUTION 941502 ALBUTEROL SULFATE Inactive ZYPREXA 15 MG ORAL TABLET Take 1 tablet by mouth daily ZYPREXA 15 MG ORAL TABLET 364123 OLANZAPINE Inactive VERAPAMIL HCL ER 120 MG ORAL TABLET EXTENDED RELEASE 1 qPM 09/08 VERAPAMIL HCL ER 120 MG ORAL TABLET EXTENDED RELEASE VERAPAMIL HCL Inactive ZYPREXA 10 MG ORAL TABLET Take one by mouth daily ZYPREXA 10 MG ORAL TABLET 521166 OLANZAPINE Inactive TOPROL XL 100 MG ORAL TABLET EXTENDED RELEASE 24 HOUR 1 @ HS TOPROL XL 100 MG ORAL TABLET EXTENDED RELEASE 24 HOUR METOPROLOL SUCCINATE Inactive LEVEMIR 100 UNIT/ML SUBCUTANEOUS SOLUTION 90 units SQ qHS LEVEMIR 100 UNIT/ML SUBCUTANEOUS SOLUTION INSULIN DETEMIR Inactive PROMETHAZINE-CODEINE 6.25-10 MG/5ML ORAL SYRUP 1 tsp po q 6 hours prn cough PROMETHAZINE-CODEINE 6.25-10 MG/5ML ORAL SYRUP 629837 PROMETHAZINE-CODEINE Inactive GUAIFENESIN ER 600 MG ORAL TABLET EXTENDED RELEASE 12 HOUR 1 tablet by mouth twice daily if needed for cough GUAIFENESIN ER 600 MG ORAL TABLET EXTENDED RELEASE 12 HOUR GUAIFENESIN Inactive ALBUTEROL SULFATE (2.5 MG/3ML) 0.083% INHALATION NEBULIZATION SOLUTION one vial per nebulizer TID and PRN cough/soa ALBUTEROL SULFATE (2.5 MG/3ML) 0.083% INHALATION NEBULIZATION SOLUTION 803266 ALBUTEROL SULFATE Inactive ZYPREXA 5 MG ORAL TABLET take one tablet by mouth every evening ZYPREXA 5 MG ORAL TABLET 378616 OLANZAPINE Inactive HYDROCODONE-ACETAMINOPHEN 5-325 MG ORAL TABLET take one tablet by mouth every four hours as needed for pain HYDROCODONE-ACETAMINOPHEN 5-325 MG ORAL TABLET 798030 HYDROCODONE-ACETAMINOPHEN Inactive BACTROBAN 2 % EXTERNAL CREAM apply to ear and nose twice daily BACTROBAN 2 % EXTERNAL CREAM 809988 MUPIROCIN CALCIUM Inactive CYCLOBENZAPRINE HCL 10 MG ORAL TABLET 1/2 tablet by mouth every 8 hours as needed for muscle spasms CYCLOBENZAPRINE HCL 10 MG ORAL TABLET 792238 CYCLOBENZAPRINE HCL Inactive NAVANE 10 MG CAPS 1/2 tablet twice a day NAVANE 10 MG CAPS THIOTHIXENE Inactive DOXEPIN HCL 10 MG ORAL CAPSULE Take 1 tablet by mouth daily DOXEPIN HCL 10 MG ORAL CAPSULE 3897065 DOXEPIN HCL Inactive HYDROCODONE-ACETAMINOPHEN 7.5-325 MG ORAL TABLET 1 four times a day as needed for pain HYDROCODONE-ACETAMINOPHEN 7.5-325 MG ORAL TABLET 979377 HYDROCODONE-ACETAMINOPHEN Inactive NIACIN ER 500 MG ORAL [...] hr. PRN ACETAMINOPHEN 500 MG ORAL TABLET 931632 ACETAMINOPHEN Inactive SAPHRIS 5 MG SUBLINGUAL TABLET SUBLINGUAL by mouth twice a day SAPHRIS 5 MG SUBLINGUAL TABLET SUBLINGUAL ASENAPINE MALEATE Inactive NIACIN ER 500 MG ORAL TABLET EXTENDED RELEASE 4 qHS (for triglycerides) 01/13 NIACIN ER 500 MG ORAL TABLET EXTENDED RELEASE NIACIN Inactive IBUPROFEN 200 MG ORAL TABLET 1 Q 6 hr. PRN IBUPROFEN 200 MG ORAL TABLET 426484 IBUPROFEN Inactive FLUTICASONE PROPIONATE 50 MCG/ACT NASAL SUSPENSION 2 sprays each nostril qDay x 30 days FLUTICASONE PROPIONATE 50 MCG/ACT NASAL SUSPENSION 2437920 FLUTICASONE PROPIONATE Inactive EQL TRUETEST TEST IN [...] at HS ZYPREXA 7.5 MG ORAL TABLET 475268 OLANZAPINE Inactive THIOTHIXENE 5 MG ORAL CAPSULE by mouth twice a day THIOTHIXENE 5 MG ORAL CAPSULE 007332 THIOTHIXENE Inactive UROXATRAL 10 MG ORAL TABLET EXTENDED RELEASE 24 HOUR Take 1 tablet by mouth daily UROXATRAL 10 MG ORAL TABLET EXTENDED RELEASE 24 HOUR ALFUZOSIN HCL Inactive ACYCLOVIR 400 MG ORAL TABLET 1 pill three times daily x 5 days, for cold sore outbreak ACYCLOVIR 400 MG ORAL TABLET 789863 ACYCLOVIR Inactive TRUETEST TEST IN VITRO STRIP check sugars 4x/day TRUETEST TEST IN VITRO STRIP GLUCOSE BLOOD Inactive HUMALOG 100 UNIT/ML SUBCUTANEOUS SOLUTION Take 20 units with breakfast, 10u with lunch and suppetr. HUMALOG 100 UNIT/ML SUBCUTANEOUS SOLUTION INSULIN LISPRO (HUMAN) Inactive CYCLOBENZAPRINE HCL 10 MG ORAL TABLET 1 tablet by mouth three times daily, scheduled CYCLOBENZAPRINE HCL 10 MG ORAL TABLET 853320 CYCLOBENZAPRINE HCL Inactive ACCU-CHEK ROSA IN VITRO STRIP use strips with device to check blood sugars 3 times daily ACCU-CHEK ROSA IN VITRO STRIP GLUCOSE BLOOD Inactive ACCU-CHEK ROSA DEVICE Use device to check blood sugars ACCU-CHEK ROSA DEVICE BLOOD GLUCOSE MONITORING SUPPL Inactive FLUVOXAMINE MALEATE 100 MG ORAL TABLET Take 1/2 tab at noon 03/04 FLUVOXAMINE MALEATE 100 MG ORAL TABLET 083930 FLUVOXAMINE MALEATE Inactive FLUVOXAMINE MALEATE 100 MG ORAL TABLET Take one (1) tablet by mouth am, 1/2 at noon FLUVOXAMINE MALEATE 100 MG ORAL TABLET 767817 FLUVOXAMINE MALEATE Inactive BACTROBAN 2 % EXTERNAL CREAM Apply to affected area BID for up to 10 days BACTROBAN 2 % EXTERNAL CREAM 497087 MUPIROCIN CALCIUM Inactive NOVOFINE 32G X 6 MM use one four times per day NOVOFINE 32G X 6 MM INSULIN PEN NEEDLE Inactive TRAZODONE HCL 100 MG ORAL TABLET 1 tab by mouth for sleep TRAZODONE HCL 100 MG ORAL TABLET 371311 TRAZODONE HCL Inactive LOVAZA 1 GM ORAL CAPSULE 4 daily (for triglycerides) LOVAZA 1 GM ORAL CAPSULE 570754 [id number] ETHYL ESTERS Inactive METFORMIN HCL ER 500 [...] bladder TOLTERODINE TARTRATE 2 MG ORAL TABLET 725976 TOLTERODINE TARTRATE Inactive COLACE 100 MG ORAL CAPSULE 1 pill by mouth twice daily, for constipation 2014 COLACE 100 MG ORAL CAPSULE 3698431 DOCUSATE SODIUM Inactive LOMOTIL 2.5-0.025 MG ORAL TABLET take 1-2 tabs PO after each stool, no more than 8 in 24 hours LOMOTIL 2.5-0.025 MG ORAL TABLET 3657957 DIPHENOXYLATE-ATROPINE Inactive ZOFRAN 4 MG ORAL TABLET 1 po q4hr PRN Nausea ZOFRAN 4 MG ORAL TABLET 677541 ONDANSETRON HCL Inactive HYDROCODONE-ACETAMINOPHEN 5-325 MG ORAL TABLET 2 tabs by mouth three times daily for pain HYDROCODONE-ACETAMINOPHEN 5-325 MG ORAL TABLET 227483 HYDROCODONE-ACETAMINOPHEN Inactive ZOLPIDEM TARTRATE 10 MG ORAL TABLET take at bedtime ZOLPIDEM TARTRATE 10 MG ORAL TABLET 798209 ZOLPIDEM TARTRATE Inactive LISINOPRIL 20 MG ORAL TABLET 1 BID LISINOPRIL 20 MG ORAL TABLET 327038 LISINOPRIL Inactive TRAVATAN Z 0.004 % OPHTHALMIC SOLUTION 1 gtt each eye daily TRAVATAN Z 0.004 % OPHTHALMIC SOLUTION TRAVOPROST Inactive LATUDA 60 MG ORAL TABLET Take one by mouth daily LATUDA 60 MG ORAL TABLET LURASIDONE HCL Inactive FLUVOXAMINE MALEATE 50 MG ORAL TABLET 1 tab by mouth daily 04/01 FLUVOXAMINE MALEATE 50 MG ORAL TABLET 817148 FLUVOXAMINE MALEATE Inactive LEVEMIR FLEXTOUCH 100 UNIT/ML [...] 30G 3 a day TRUEPLUS LANCETS 30G [id number] LANCETS Inactive AMITIZA 24 MCG ORAL CAPSULE [...] noon FLUVOXAMINE MALEATE 100 MG ORAL TABLET 204791 FLUVOXAMINE MALEATE Inactive FLONASE ALLERGY RELIEF 50 MCG/ACT NASAL SUSPENSION One spray each nostril BID x 1 week then daily FLONASE ALLERGY RELIEF 50 MCG/ACT NASAL SUSPENSION 0480764 FLUTICASONE PROPIONATE Inactive IMODIUM A-D 2 MG ORAL TABLET 1 tab QID as needed IMODIUM A-D 2 MG ORAL TABLET 014602 LOPERAMIDE HCL Inactive MYLANTA GAS RELIEF MAXIMUM STR 125 MG ORAL CAPSULE 30cc every 4 hours prn MYLANTA GAS RELIEF MAXIMUM STR 125 MG ORAL CAPSULE SIMETHICONE Inactive TRUEPLUS LANCETS 30G 3x a day TRUEPLUS LANCETS 30G 80028396043 LANCETS Inactive TRUE METRIX BLOOD GLUCOSE TEST [...] headaches TRAZODONE HCL 100 MG ORAL TABLET 808943 TRAZODONE HCL Inactive TYLENOL 8 HOUR 650 MG ORAL TABLET EXTENDED RELEASE 1 tab QID prn TYLENOL 8 HOUR 650 MG ORAL TABLET EXTENDED RELEASE ACETAMINOPHEN Inactive [facility] LUBRICANT EYE DROPS 0.4-0.3 % OPHTHALMIC SOLUTION [facility] LUBRICANT EYE DROPS 0.4-0.3 % OPHTHALMIC SOLUTION POLYETHYL GLYCOL- PROPYL GLYCOL Inactive CEFDINIR 300 MG ORAL CAPSULE by mouth twice a day CEFDINIR 300 MG ORAL CAPSULE 552754 CEFDINIR Inactive AZITHROMYCIN 500 MG INTRAVENOUS SOLUTION RECONSTITUTED 1 po q day AZITHROMYCIN 500 MG INTRAVENOUS SOLUTION RECONSTITUTED 18022368078 AZITHROMYCIN Inactive AMOXICILLIN 500 MG ORAL CAPSULE 2 po BID x 10 days AMOXICILLIN 500 MG ORAL CAPSULE 135941 AMOXICILLIN Inactive PENICILLIN V POTASSIUM 500 MG ORAL TABLET 1 pill by mouth three times daily PENICILLIN V POTASSIUM 500 MG ORAL TABLET 831254 PENICILLIN V POTASSIUM Inactive KEFLEX 500 MG ORAL CAPSULE 1 po BID x 7 days KEFLEX 500 MG ORAL CAPSULE 130276 CEPHALEXIN Inactive Immunizations Vaccine Administration Date Value [...] Fluvirin, Fluarix, Agriflu(>=18 yo)) Fluzone (>3 yrs.) [[id number]] Influenza, seasonal, injectable pneumococcal immunization administered Pneumovax [...] Unit Range Description Office Visit: TCM from skilled nursing - Lab PSA (prostate specific antigent), recommendation and action PSA ordered Encounters Code Encounter Date Provider Facility CPT-[id number] Level 3 Est. Patient 09:12:14 INFECTION CONTROL SPECIALIST Mima Erazo [facility] CPT-59366 Level 3 Est. Patient 16:52:51 CDT Vanessa Hickey MD [facility] CPT-94666 Level 3 Est. Patient 17:40:16 CDT [facility] CPT-93969 Level 3 Est. Patient 14:34:52 CDT Vanessa Hickey MD [facility] CPT-43024 Level 3 Est. Patient 16:27:51 CDT Mima Erazo [facility] CPT-60218 Level 3 Est. Patient 14:39:00 INFECTION CONTROL SPECIALIST Vanessa Hickey MD [facility] CPT-11762 Level 2 Est. Patient 18:43:34 CDT Mima Yokum [facility] CPT-26306 Level 3 Est. Patient 16:22:09 CDT Cherelle Avila [facility]-48584 Level 4 Est. Patient 17:55:14 CDT Mima Erazo [facility] CPT-37476 Level 2 Est. Patient 17:13:21 CDT Alina Castaneda MD [facility]79013 Level 3 Est. Patient 14:46:15 CDT Vanessa Hickey MD [facility]-45152 Level 3 Est. Patient 09:34:56 CDT Alina Castaneda MD [facility]03042 Level 3 Est. Patient 21:40:19 CDT Mima Erazo [facility]-84367 Level 3 Est. Patient 09:26:40 CDT Marvel Charles [facility]95550 Level 3 Est. Patient 12:36:43 CDT Vanessa Hickey MD [facility]-08104 Level 3 Est. Patient 12:57:49 CDT Vanessa Hickey [facility]10231 Level 3 Est. Patient 00:28:25 CDT Alina Castaneda MD [facility]-44303 Level 2 Est. Patient 12:52:14 CDT Alina Castaneda MD [facility]98534 Level 3 Est. Patient 11:51:18 INFECTION CONTROL SPECIALIST Alina Castaneda MD [facility]90131 Level 3 Est. Patient 10:09:22 INFECTION CONTROL SPECIALIST Alina Castaneda MD [facility]95686 Level 3 Est. Patient 14:36:26 INFECTION CONTROL SPECIALIST Marvel Charles [facility]-78632 Level 3 Est. Patient 13:34:47 INFECTION CONTROL SPECIALIST Alina Castaneda MD [facility]-34033 Level 3 Est. Patient 19:52:08 INFECTION CONTROL SPECIALIST Alina Castaneda MD [facility]-32811 Level 3 Est. Patient 10:01:51 INFECTION CONTROL SPECIALIST [place] Araceli [facility]-86667 Level 3 Est. Patient 21:54:06 CDT Vanessa Hickey MD [facility]-89712 Level 3 Est. Patient 08:54:46 CDT Alina Castaneda MD [facility]15069 Level 3 Est. Patient 09:32:11 CDT Marvel Charles [facility]-39046 Level 3 Est. Patient 12:02:49 CDT Alina Castaneda MD [facility]-69534 Level 3 Est. Patient 19:17:33 CDT Alina Castaneda MD [facility]-57335 Level 3 Est. Patient 13:19:10 CDT Marvel Charles [facility]-89467 Level 3 Est. Patient 08:20:05 CDT Alina Castaneda MD [facility]-22749 Level 3 Est. Patient 15:17:18 CDT Alina Castaneda MD [facility]-67078 Level 3 Est. Patient 14:25:36 INFECTION CONTROL SPECIALIST Brooksjohn Charles [facility]-36378 Level 3 Est. Patient 10:09:15 INFECTION CONTROL SPECIALIST Brooksjohn Charles [facility]-02040 Level 3 Est. Patient 21:28:43 CDT Alina Castaneda MD [facility]-77685 Level 3 Est. Patient 15:20:11 CDT Maliheh Ziglari [facility]-99522 Level 4 Est. Patient 19:08:12 CDT Alina Castaneda MD [facility]-06184 Level 3 Est. Patient 15:06:39 CDT Brook[place] Charles [facility]-42461 Level 4 Est. Patient 17:48:15 CDT Alina Castaneda MD [facility]-12553 Level 3 Est. Patient 14:53:49 CDT Alina Castaneda MD [facility]-02999 Level 3 Est. Patient 09:35:16 CDT Alina Castaneda MD [facility]-60534 Level 3 Est. Patient 12:23:22 CDT Alina Castaneda MD [facility]-85329 Level 3 Est. Patient 16:19:15 CDT Alina Castaneda MD [facility]-45306 Level 3 Est. Patient 21:39:56 INFECTION CONTROL SPECIALIST Alina Castaneda MD [facility]-10633 Level 4 Est. Patient 14:12:56 INFECTION CONTROL SPECIALIST Alina Castaneda MD [facility]-15142 Level 2 Est. Patient 15:34:57 INFECTION CONTROL SPECIALIST Alina Castaneda MD [facility]-56944 Level 3 Est. Patient 12:17:04 INFECTION CONTROL SPECIALIST Alina Castaneda MD [facility]-14605 Level 3 Est. Patient 09:18:18 INFECTION CONTROL SPECIALIST Marvel Charles [facility]-56338 Level 2 Est. Patient 21:50:24 CDT Alina Castaneda MD [facility]66540 Level 3 Est. Patient 09:17:28 CDT Marvel Charles [facility] CPT-95235 Level 4 Est. Patient 18:54:02 CDT Alina Castaneda MD [facility] CPT-93999 Level 3 Est. Patient 10:47:10 CDT Alina Castaneda MD [facility]-11704 Level 3 Est. Patient 09:22:20 CDT Brooksjohn Charles [facility] CPT-68610 Level 3 Est. Patient 16:39:43 [facility]T [facility] CPT-89754 Level 3 Est. Patient 16:05:16 CDT Alina Castaneda MD [facility] CPT-09745 Level 3 Est. Patient 00:29:15 CDT Alina Castaneda MD [facility] CPT-19632 Level 3 Est. Patient 10:49:22 INFECTION CONTROL SPECIALIST Marvel Charles [facility] CPT-29246 Level 3 Est. Patient 21:30:19 INFECTION CONTROL SPECIALIST Alina Castaneda MD [facility] CPT-19546 Level 4 Est. Patient 17:04:11 INFECTION CONTROL SPECIALIST Brooksjohn Chrales [facility] CPT-31287 Level 3 Est. Patient 15:34:11 INFECTION CONTROL SPECIALIST Marvel Charles [facility] CPT-06025 Level 2 Est. Patient 12:51:58 INFECTION CONTROL SPECIALIST Alina Castaneda MD PhD [facility] CPT-18165 Level 3 Est. Patient 13:20:01 INFECTION CONTROL SPECIALIST Alina Castaneda MD [facility]-66211 Level 3 Est. Patient 09:23:35 CDT Alina Castaneda MD PhD [facility] Procedures Code Procedure Name Date Entry Date Standard Description CPT-TCMM Transitional Care Mgmt-Moderate 12:32:19 CDT CPT-40684 Level 2 Chcf 09:01:11 CDT CPT-76937 HGBA1C - LAB USE ONLY 09:30:27 INFECTION CONTROL SPECIALIST CPT-46922 BMP - LAB USE ONLY 09:30:27 INFECTION CONTROL SPECIALIST CPT-54930 Venipuncture Draw Fee 09:30:26 INFECTION CONTROL SPECIALIST CPT-TCMM Transitional Care Mgmt-Moderate 10:25:31 CDT CPT-03691 Bladder Scan 14:34:53 CDT CPT-04223 Bladder Scan 14:39:01 INFECTION CONTROL SPECIALIST CPT-TCMM Transitional Care Mgmt-Moderate 10:30:19 INFECTION CONTROL SPECIALIST CPT-25934 Bladder Scan 12:36:44 CDT CPT-07175 Bladder Scan 21:54:06 CDT CPT-G0008 Administration of Influenza Virus Vaccine 13:05:26 CDT CPT-03517 Fluzone Quadrivalent Intramuscular Suspension 0.5 ML 13: 05:26 CDT CPT-77839 Administration single or combination vaccine inc oral 11 :49:51 CDT CPT-49309 Pneumovax 11:49:51 CDT CPT-91152 Ribs unilateral 2V 12:37:22 INFECTION CONTROL SPECIALIST CPT-18625 Chest 2V Frontal and Lat 17:15:26 CDT CPT-08977 Abx/Therapy Injection 18:54:02 CDT CPT-J0696 Rocephin 1000 mg (Ceftriaxone) 16:00:32 CDT CPT-89315 Chest 2V Frontal and Lat 15:26:45 CDT CPT-07454 Chest 2V Frontal and Lat 10:23:27 CDT CPT-05778 Venipuncture Draw Fee 10:11:00 CDT CPT-17342 Administration single or combination vaccine inc oral 11 :56:38 CDT CPT-40922 Influenza split virus > age 3 11:56:38 CDT CPT-21024 Venipuncture Draw Fee 08:49:54 INFECTION CONTROL SPECIALIST CPT-90873 EKG Trac and Interp 17:54:19 INFECTION CONTROL SPECIALIST
--- OUTSIDE RECORDS SUMMARY | 2018-07-02 13:10 | XMS REPORT | Clinical Summary ---
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 Diabetes mellitus without mention of complication, [...] Instructions Start Date Stop Date Generic Name [facility] Status Provider Patient Instruction TOPAMAX 25 MG ORAL TABLET 1 tab BID PRN TOPIRAMATE 43763590723 Active Mason Loredo MD Active TIMOPTIC OCUDOSE 0.5 % OPHTHALMIC SOLUTION instill one drop into both eyes q12H TIMOLOL MALEATE 09363603393 Active Mason Loredo MD Active TRAZODONE HCL 100 MG ORAL TABLET 1 every night to prevent headaches TRAZODONE HCL 14577769808 No Longer Active Mason Loredo MD Active TRAVATAN Z 0.004 % OPHTHALMIC SOLUTION 1 drop each eye daily 2017 TRAVOPROST 46470697630 No Longer Active Mason Loredo MD Active LATUDA 60 MG ORAL TABLET 1 tab daily LURASIDONE HCL 98330556276 No Longer Active Mason Loredo MD Active MORPHINE SULFATE ER 30 MG ORAL TABLET EXTENDED RELEASE Take one capsule BID MORPHINE SULFATE 30150850869 No Longer Active Mason Loredo MD Active TRUE METRIX BLOOD GLUCOSE TEST IN VITRO STRIP Check blood sugars 3x/day. 2015 GLUCOSE BLOOD 57482794286 No Longer Active Mason Loredo MD Active TRUEPLUS LANCETS 30G 3x a day LANCETS 12596856140 No Longer Active Mason Loredo MD Active MYLANTA GAS RELIEF MAXIMUM STR 125 MG ORAL CAPSULE 30cc every 4 hours prn SIMETHICONE 04279916412 No Longer Active Mason Loredo MD Active IMODIUM A-D 2 MG ORAL TABLET 1 tab QID as needed LOPERAMIDE HCL 42017701108 No Longer Active Mason Loredo MD Active FLONASE ALLERGY RELIEF 50 MCG/ACT NASAL SUSPENSION One spray each nostril BID x 1 week then daily FLUTICASONE PROPIONATE 58465751426 No Longer Active Mason Loredo MD Active FLUVOXAMINE MALEATE 100 MG ORAL TABLET take one tab every AM et HS, and take 1 /2 tab at noon FLUVOXAMINE MALEATE 28343123067 No Longer Active Mason Loredo MD Active BD PEN NEEDLE MINI U/F 31G X 5 MM 4 a day INSULIN PEN NEEDLE 81715334952 No Longer Active Mason Loredo MD Active AMITIZA 24 MCG ORAL CAPSULE Take one capsule BID for constipation LUBIPROSTONE 01401916163 No Longer Active Mason Loredo MD Active TRUEPLUS LANCETS 30G 3 a day LANCETS 52857997152 No Longer Active Mason Loredo MD Active CORICIDIN HBP CONGESTION/COUGH 10-200 MG ORAL CAPSULE Take as directed on box as needed for cold/flu symptoms DEXTROMETHORPHAN- GUAIFENESIN 65694085113 No Longer Active Mason Loredo MD Active OMEGA-3 300 MG ORAL CAPSULE 4 caps by mouth daily OMEGA-3 FATTY ACIDS 31618970154 No Longer Active Mason Loredo MD Active HUMALOG KWIKPEN 100 UNIT/ML SUBCUTANEOUS SOLUTION PEN-INJECTOR sliding scale if needed INSULIN LISPRO (HUMAN) 43511281766 No Longer Active Mason Loredo MD Active TRUETEST TEST IN VITRO STRIP check blood sugars 3x/day GLUCOSE BLOOD 35637831509 No Longer Active Mason Loredo MD Active ALFUZOSIN HCL ER 10 MG ORAL TABLET EXTENDED RELEASE 24 HOUR 1 tablet daily ALFUZOSIN HCL 94268770845 No Longer Active Mason Loredo MD Active BD INSULIN SYRINGE 28G X 1/2" 1 ML 1 four times per day INSULIN SYRINGE-NEEDLE U-100 34198739366 No Longer Active Mason Loredo MD Active LEVEMIR FLEXTOUCH 100 UNIT/ML SUBCUTANEOUS SOLUTION PEN-INJECTOR 60 units SQ each evening, for diabetes INSULIN DETEMIR 40250546038 No Longer Active Mason Loredo MD Active METFORMIN HCL ER (MOD) 500 MG ORAL TABLET EXTENDED RELEASE 24 HOUR give two tabs PO BID METFORMIN HCL 52784467558 Active Mason Loredo MD Active LACTULOSE 20 GM/30ML ORAL SOLUTION give 30 Ml PO BID PRN LACTULOSE 24955820703 Active Mason Loredo MD Active COLACE 100 MG ORAL CAPSULE 1 tab BID PRN DOCUSATE SODIUM 45299220301 Active Mason Loredo MD Active TAMSULOSIN HCL 0.4 MG ORAL CAPSULE give 2 capsules PO each evening TAMSULOSIN HCL 90939814974 Active Mason Loredo MD Active [facility] MELATONIN 3 MG ORAL TABLET give 1 tab by mouth at HS MELATONIN 32059288559 Active Mason Loredo MD Active LATANOPROST 0.005 % OPHTHALMIC SOLUTION instill 1 drop in both eyes at bed time LATANOPROST 13052419287 Active Mason Loredo MD Active AMARYL 2 MG ORAL TABLET give 2.5 tabs PO daily GLIMEPIRIDE 72194793694 Active Mason Loredo MD Active MIRALAX ORAL POWDER 17g by mouth q12h, for constipation POLYETHYLENE GLYCOL 3350 43143365730 Active Mason Loredo MD Active IBUPROFEN 400 MG ORAL TABLET 1 tab Q6H PRN IBUPROFEN 80943741727 Active Mason Loredo MD Active EFFEXOR XR 37.5 MG ORAL CAPSULE EXTENDED RELEASE 24 HOUR Take one by mouth daily VENLAFAXINE HCL 85311061930 Active Mima Erazo APRN Active FLUVOXAMINE MALEATE 50 MG ORAL TABLET 1 tab by mouth daily 04/01 FLUVOXAMINE MALEATE 17875312627 No Longer Active Mima Erazo APRN Active TRUE METRIX METER w/Device KIT Check blood sugars 3x/day BLOOD GLUCOSE MONITORING SUPPL 32862658314 Active Marvel MARROQUIN Active VITAMIN D 2000 UNIT ORAL CAPSULE Take one by mouth daily CHOLECALCIFEROL 74704848950 Active Mima Erazo APRN Active LATUDA 60 MG ORAL TABLET Take one by mouth daily LURASIDONE HCL 50566485971 No Longer Active Mima Erazo APRN Active CLONAZEPAM 1 MG ORAL TABLET 1 pill by mouth three times daily CLONAZEPAM 34093684774 Active Gabrielle Marquez MA Active [facility] MILK OF MAGNESIA 400 MG/5ML ORAL SUSPENSION 30ml by mouth bid prn MAGNESIUM HYDROXIDE 04879583225 Active Mason Loredo MD Active TYLENOL 8 HOUR 650 MG ORAL TABLET EXTENDED RELEASE 1 tab QID prn ACETAMINOPHEN 09483182380 Active Maosn Loredo MD Active TRAVATAN Z 0.004 % OPHTHALMIC SOLUTION 1 gtt each eye daily TRAVOPROST 45220404469 No Longer Active Mason Loredo MD Active LISINOPRIL 20 MG ORAL TABLET 1 BID LISINOPRIL 02246577562 No Longer Active Mason Loredo MD Active ZOLPIDEM TARTRATE 10 MG ORAL TABLET take at bedtime ZOLPIDEM TARTRATE 41517940114 No Longer Active Mason Loredo MD Active HYDROCODONE-ACETAMINOPHEN 5-325 MG ORAL TABLET 2 tabs by mouth three times daily for pain HYDROCODONE-ACETAMINOPHEN 73696594432 No Longer Active Mason Loredo MD Active ZOFRAN 4 MG ORAL TABLET 1 po q4hr PRN Nausea ONDANSETRON HCL 25600211399 No Longer Active Mason Loredo MD Active LOMOTIL 2.5-0.025 MG ORAL TABLET take 1-2 tabs PO after each stool, no more than 8 in 24 hours DIPHENOXYLATE-ATROPINE 90528736113 No Longer Active Mason Loredo MD Active COLACE 100 MG ORAL CAPSULE 1 pill by mouth twice daily, for constipation 2014 DOCUSATE SODIUM 86313122866 No Longer Active Mima Erazo APRN Active TOLTERODINE TARTRATE 2 MG ORAL TABLET 1 pill twice daily, for bladder TOLTERODINE TARTRATE 49092799903 No Longer Active Vanessa Hickey MD Active AMITIZA 24 MCG ORAL CAPSULE Take one capsule BID for constipation. LUBIPROSTONE 95703281859 No Longer Active Vanessa Hickey MD Active METOPROLOL SUCCINATE ER 100 MG ORAL TABLET EXTENDED RELEASE 24 HOUR 1 by mouth daily for blood pressure METOPROLOL SUCCINATE 64155455291 No Longer Active Grace ROJAS Active METFORMIN HCL ER 500 MG ORAL TABLET EXTENDED RELEASE 24 HOUR Take three tablets by mouth everyday METFORMIN HCL 33196036694 No Longer Active Grace ROJAS Active LOVAZA 1 GM ORAL CAPSULE 4 daily (for triglycerides) [id number] ETHYL ESTERS 30176179915 No Longer Active Grace Nascimento RMA Active TRAZODONE HCL 100 MG ORAL TABLET 1 tab by mouth for sleep TRAZODONE HCL 55611640223 No Longer Active Grace Nascimento RMA Active NOVOFINE 32G X 6 MM use one four times per day INSULIN PEN NEEDLE 93973096196 No Longer Active Grace Nascimento RMAriela Active BACTROBAN 2 % EXTERNAL CREAM Apply to affected area BID for up to 10 days MUPIROCIN CALCIUM 43840909225 No Longer Active Grace ROJAS Active KEFLEX 500 MG ORAL CAPSULE 1 po BID x 7 days CEPHALEXIN 00657819750 No Longer Active Cherelle Avila APRN Active FLUVOXAMINE MALEATE 100 MG ORAL TABLET Take one (1) tablet by mouth am, 1/2 at noon FLUVOXAMINE MALEATE 35341458598 No Longer Active Mima Erazo APRN Active FLUVOXAMINE MALEATE 100 MG ORAL TABLET Take 1/2 tab at noon 03/04 FLUVOXAMINE MALEATE 11073621101 No Longer Active Cherelle Avila APRN Active [facility] LUBRICANT EYE DROPS 0.4-0.3 % OPHTHALMIC SOLUTION POLYETHYL GLYCOL-PROPYL GLYCOL 65689948325 Active Mima Erazo APRN Active ACCU-CHEK ROSA DEVICE Use device to check blood sugars BLOOD GLUCOSE MONITORING SUPPL 85307562194 No Longer Active Marvel MARROQUIN Active ACCU-CHEK ROSA IN VITRO STRIP use strips with device to check blood sugars 3 times daily GLUCOSE BLOOD 58085223849 No Longer Active Maljohn MENDOZAP Active VERAPAMIL HCL ER 180 MG ORAL TABLET EXTENDED RELEASE 1 pill by mouth twice daily, for migraine prevention VERAPAMIL HCL 60119671468 Active Mima Erazo APRN Active CYCLOBENZAPRINE HCL 10 MG ORAL TABLET 1 tablet by mouth three times daily, scheduled CYCLOBENZAPRINE HCL 34473339002 No Longer Active Alina Castaneda MD PhD Active HUMALOG 100 UNIT/ML SUBCUTANEOUS SOLUTION Take 20 units with breakfast, 10u with lunch and suppetr. INSULIN LISPRO (HUMAN) 87979105538 No Longer Active Alina Castaneda MD PhD Active TRUETEST TEST IN VITRO STRIP check sugars 4x/day GLUCOSE BLOOD 84009969297 No Longer Active Alina Castaneda MD PhD Active MORPHINE SULFATE 30 MG ORAL TABLET 1 pill by mouth twice daily, for pain 2013 MORPHINE SULFATE 78386469081 No Longer Active Mason Loredo MD Active ACYCLOVIR 400 MG ORAL TABLET 1 pill three times daily x 5 days, for cold sore outbreak ACYCLOVIR 64640348951 No Longer Active Alina Castaneda MD PhD Active PENICILLIN V POTASSIUM 500 MG ORAL TABLET 1 pill by mouth three times daily PENICILLIN V POTASSIUM 51196071948 No Longer Active Alina Castaneda MD PhD Active UROXATRAL 10 MG ORAL TABLET EXTENDED RELEASE 24 HOUR Take 1 tablet by mouth daily ALFUZOSIN HCL 95506365296 No Longer Active Alina Castaneda MD PhD Active THIOTHIXENE 5 MG ORAL CAPSULE by mouth twice a day THIOTHIXENE 04690491261 No Longer Active Alina Castaneda MD PhD Active ZYPREXA 7.5 MG ORAL TABLET 1 at HS OLANZAPINE 99754550271 No Longer Active Alina Castaneda MD PhD Active DETROL LA 4 MG ORAL CAPSULE EXTENDED RELEASE 24 HOUR Take 1 tablet by mouth daily TOLTERODINE TARTRATE 52489486585 No Longer Active Alina Castaneda MD PhD Active TERESE CONTOUR TEST IN VITRO STRIP monitor blood sugars 3x/day GLUCOSE BLOOD 58912498084 No Longer Active Alina Castaneda MD PhD Active EQL TRUETEST TEST IN VITRO STRIP Test blood sugar TID GLUCOSE BLOOD 59971027319 No Longer Active Alina Castaneda MD PhD Active FLUTICASONE PROPIONATE 50 MCG/ACT NASAL SUSPENSION 2 sprays each nostril qDay x 30 days FLUTICASONE PROPIONATE 29418606459 No Longer Active Alina Castaneda MD PhD Active IBUPROFEN 200 MG ORAL TABLET 1 Q 6 hr. PRN IBUPROFEN 60340192641 No Longer Active Alina Castaneda MD PhD Active NIACIN ER 500 MG ORAL TABLET EXTENDED RELEASE 4 qHS (for triglycerides) 01/13 NIACIN 77604852428 No Longer Active Alina Castaneda MD PhD Active SAPHRIS 5 MG SUBLINGUAL TABLET SUBLINGUAL by mouth twice a day ASENAPINE MALEATE 75594425400 No Longer Active Maljohn MARROQUIN Active ACETAMINOPHEN 500 MG ORAL TABLET 2 Q 6 hr. PRN ACETAMINOPHEN 56546208412 No Longer Active Marvel MARROQUIN Active ORPHENADRINE CITRATE ER 100 MG ORAL TABLET EXTENDED RELEASE 12 HOUR 1 every 12 hr. as needed ORPHENADRINE CITRATE 44833381648 No Longer Active Alina Castaneda MD PhD Active NIACIN ER 500 MG ORAL TABLET EXTENDED RELEASE 2 qHS NIACIN 62500557042 No Longer Active Alina Castaneda MD PhD Active AMOXICILLIN 500 MG ORAL CAPSULE 2 po BID x 10 days AMOXICILLIN 05659831655 No Longer Active Alina Castaneda MD PhD Active HYDROCODONE-ACETAMINOPHEN 7.5-325 MG ORAL TABLET 1 four times a day as needed for pain HYDROCODONE-ACETAMINOPHEN 35030310971 No Longer Active Alina Castaneda MD PhD Active DOXEPIN HCL 10 MG ORAL CAPSULE Take 1 tablet by mouth daily DOXEPIN HCL 69942270625 No Longer Active Salina ROBBINSA Active NAVANE 10 MG CAPS 1/2 tablet twice a day THIOTHIXENE No Longer Active Salina ROBBINSA Active CYCLOBENZAPRINE HCL 10 MG ORAL TABLET 1/2 tablet by mouth every 8 hours as needed for muscle spasms CYCLOBENZAPRINE HCL 39005947626 No Longer Active Alina Castaneda MD PhD Active BACTROBAN 2 % EXTERNAL CREAM apply to ear and nose twice daily MUPIROCIN CALCIUM 25324821416 No Longer Active Alina Castaneda MD PhD Active HYDROCODONE-ACETAMINOPHEN 5-325 MG ORAL TABLET take one tablet by mouth every four hours as needed for pain HYDROCODONE-ACETAMINOPHEN 55677462192 No Longer Active Alina Castaneda MD PhD Active ZYPREXA 5 MG ORAL TABLET take one tablet by mouth every evening OLANZAPINE 38416379305 No Longer Active Alian Castaneda MD PhD Active ALBUTEROL SULFATE (2.5 MG/3ML) 0.083% INHALATION NEBULIZATION SOLUTION one vial per nebulizer TID and PRN cough/soa ALBUTEROL SULFATE 68477383424 No Longer Active Alina Castaneda MD PhD Active GUAIFENESIN ER 600 MG ORAL TABLET EXTENDED RELEASE 12 HOUR 1 tablet by mouth twice daily if needed for cough GUAIFENESIN 37341354798 No Longer Active Marvel MARROQUIN Active AZITHROMYCIN 500 MG INTRAVENOUS SOLUTION RECONSTITUTED 1 po q day AZITHROMYCIN 17632997644 No Longer Active Alina Castaneda MD PhD Active PROMETHAZINE-CODEINE 6.25-10 MG/5ML ORAL SYRUP 1 tsp po q 6 hours prn cough PROMETHAZINE-CODEINE 90630831672 No Longer Active Alina Castaneda MD PhD Active CEFDINIR 300 MG ORAL CAPSULE by mouth twice a day CEFDINIR 51940476442 No Longer Active Alina Castaneda MD PhD Active METFORMIN HCL ER 500 MG ORAL TABLET EXTENDED RELEASE 24 HOUR Take 3 tablets by mouth everyday METFORMIN HCL 02438825528 No Longer Active Alina Castaneda MD PhD Active LEVEMIR 100 UNIT/ML SUBCUTANEOUS SOLUTION 90 units SQ qHS INSULIN DETEMIR 53985230496 No Longer Active Marvel MARROQUIN Active TOPROL XL 100 MG ORAL TABLET EXTENDED RELEASE 24 HOUR 1 @ HS METOPROLOL SUCCINATE 53991138439 No Longer Active Marvel MARROQUIN Active ALLOPURINOL 300 MG ORAL TABLET Take one by mouth daily ALLOPURINOL 66398539260 Active Mima Erazo APRN Active ZYPREXA 10 MG ORAL TABLET Take one by mouth daily OLANZAPINE 91275472939 No Longer Active Alina Castaneda MD PhD Active NOVOLOG 100 UNIT/ML SUBCUTANEOUS SOLUTION 40 units with every meal INSULIN ASPART 12846976028 No Longer Active Alina Castaneda MD PhD Active VERAPAMIL HCL ER 120 MG ORAL TABLET EXTENDED RELEASE 1 qPM 09/08 VERAPAMIL HCL 32815752486 No Longer Active Salina ROJAS Active ZYPREXA 15 MG ORAL TABLET Take 1 tablet by mouth daily OLANZAPINE 55241328015 No Longer Active Marvel MARROQUIN Active ALBUTEROL SULFATE (2.5 MG/3ML) 0.083% INHALATION NEBULIZATION SOLUTION 1 neb tid and prn cough ALBUTEROL SULFATE 75450283281 No Longer Active Alina Castaneda MD PhD Active LANTUS 100 UNIT/ML SUBCUTANEOUS SOLUTION 60 units sq q hs INSULIN GLARGINE 40510441544 No Longer Active CRYSTAL Suarez Active ALBUTEROL SULFATE (2.5 MG/3ML) 0.083% INHALATION NEBULIZATION SOLUTION 1 neb tid and prn cough ALBUTEROL SULFATE (2.5 MG/3ML) 0.083% INHALATION NEBULIZATION SOLUTION 263266 ALBUTEROL SULFATE Inactive ZYPREXA 15 MG ORAL TABLET Take 1 tablet by mouth daily ZYPREXA 15 MG ORAL TABLET 789278 OLANZAPINE Inactive VERAPAMIL HCL ER 120 MG ORAL TABLET EXTENDED RELEASE 1 qPM 09/08 VERAPAMIL HCL ER 120 MG ORAL TABLET EXTENDED RELEASE VERAPAMIL HCL Inactive ZYPREXA 10 MG ORAL TABLET Take one by mouth daily ZYPREXA 10 MG ORAL TABLET 502373 OLANZAPINE Inactive TOPROL XL 100 MG ORAL TABLET EXTENDED RELEASE 24 HOUR 1 @ HS TOPROL XL 100 MG ORAL TABLET EXTENDED RELEASE 24 HOUR METOPROLOL SUCCINATE Inactive LEVEMIR 100 UNIT/ML SUBCUTANEOUS SOLUTION 90 units SQ qHS LEVEMIR 100 UNIT/ML SUBCUTANEOUS SOLUTION INSULIN DETEMIR Inactive PROMETHAZINE-CODEINE 6.25-10 MG/5ML ORAL SYRUP 1 tsp po q 6 hours prn cough PROMETHAZINE-CODEINE 6.25-10 MG/5ML ORAL SYRUP 501313 PROMETHAZINE-CODEINE Inactive GUAIFENESIN ER 600 MG ORAL TABLET EXTENDED RELEASE 12 HOUR 1 tablet by mouth twice daily if needed for cough GUAIFENESIN ER 600 MG ORAL TABLET EXTENDED RELEASE 12 HOUR GUAIFENESIN Inactive ALBUTEROL SULFATE (2.5 MG/3ML) 0.083% INHALATION NEBULIZATION SOLUTION one vial per nebulizer TID and PRN cough/soa ALBUTEROL SULFATE (2.5 MG/3ML) 0.083% INHALATION NEBULIZATION SOLUTION 257421 ALBUTEROL SULFATE Inactive ZYPREXA 5 MG ORAL TABLET take one tablet by mouth every evening ZYPREXA 5 MG ORAL TABLET 097856 OLANZAPINE Inactive HYDROCODONE-ACETAMINOPHEN 5-325 MG ORAL TABLET take one tablet by mouth every four hours as needed for pain HYDROCODONE-ACETAMINOPHEN 5-325 MG ORAL TABLET 419918 HYDROCODONE-ACETAMINOPHEN Inactive BACTROBAN 2 % EXTERNAL CREAM apply to ear and nose twice daily BACTROBAN 2 % EXTERNAL CREAM 531229 MUPIROCIN CALCIUM Inactive CYCLOBENZAPRINE HCL 10 MG ORAL TABLET 1/2 tablet by mouth every 8 hours as needed for muscle spasms CYCLOBENZAPRINE HCL 10 MG ORAL TABLET 773327 CYCLOBENZAPRINE HCL Inactive NAVANE 10 MG CAPS 1/2 tablet twice a day NAVANE 10 MG CAPS THIOTHIXENE Inactive DOXEPIN HCL 10 MG ORAL CAPSULE Take 1 tablet by mouth daily DOXEPIN HCL 10 MG ORAL CAPSULE 7226383 DOXEPIN HCL Inactive HYDROCODONE-ACETAMINOPHEN 7.5-325 MG ORAL TABLET 1 four times a day as needed for pain HYDROCODONE-ACETAMINOPHEN 7.5-325 MG ORAL TABLET 465341 HYDROCODONE-ACETAMINOPHEN Inactive NIACIN ER 500 MG ORAL [...] hr. PRN ACETAMINOPHEN 500 MG ORAL TABLET 892060 ACETAMINOPHEN Inactive SAPHRIS 5 MG SUBLINGUAL TABLET SUBLINGUAL by mouth twice a day SAPHRIS 5 MG SUBLINGUAL TABLET SUBLINGUAL ASENAPINE MALEATE Inactive NIACIN ER 500 MG ORAL TABLET EXTENDED RELEASE 4 qHS (for triglycerides) 01/13 NIACIN ER 500 MG ORAL TABLET EXTENDED RELEASE NIACIN Inactive IBUPROFEN 200 MG ORAL TABLET 1 Q 6 hr. PRN IBUPROFEN 200 MG ORAL TABLET 483342 IBUPROFEN Inactive FLUTICASONE PROPIONATE 50 MCG/ACT NASAL SUSPENSION 2 sprays each nostril qDay x 30 days FLUTICASONE PROPIONATE 50 MCG/ACT NASAL SUSPENSION 9196657 FLUTICASONE PROPIONATE Inactive EQL TRUETEST TEST IN [...] at HS ZYPREXA 7.5 MG ORAL TABLET 523386 OLANZAPINE Inactive THIOTHIXENE 5 MG ORAL CAPSULE by mouth twice a day THIOTHIXENE 5 MG ORAL CAPSULE 786564 THIOTHIXENE Inactive UROXATRAL 10 MG ORAL TABLET EXTENDED RELEASE 24 HOUR Take 1 tablet by mouth daily UROXATRAL 10 MG ORAL TABLET EXTENDED RELEASE 24 HOUR ALFUZOSIN HCL Inactive ACYCLOVIR 400 MG ORAL TABLET 1 pill three times daily x 5 days, for cold sore outbreak ACYCLOVIR 400 MG ORAL TABLET 687848 ACYCLOVIR Inactive TRUETEST TEST IN VITRO STRIP check sugars 4x/day TRUETEST TEST IN VITRO STRIP GLUCOSE BLOOD Inactive HUMALOG 100 UNIT/ML SUBCUTANEOUS SOLUTION Take 20 units with breakfast, 10u with lunch and suppetr. HUMALOG 100 UNIT/ML SUBCUTANEOUS SOLUTION INSULIN LISPRO (HUMAN) Inactive CYCLOBENZAPRINE HCL 10 MG ORAL TABLET 1 tablet by mouth three times daily, scheduled CYCLOBENZAPRINE HCL 10 MG ORAL TABLET 860044 CYCLOBENZAPRINE HCL Inactive ACCU-CHEK ROSA IN VITRO STRIP use strips with device to check blood sugars 3 times daily ACCU-CHEK ROSA IN VITRO STRIP GLUCOSE BLOOD Inactive ACCU-CHEK ROSA DEVICE Use device to check blood sugars ACCU-CHEK ROSA DEVICE BLOOD GLUCOSE MONITORING SUPPL Inactive FLUVOXAMINE MALEATE 100 MG ORAL TABLET Take 1/2 tab at noon 03/04 FLUVOXAMINE MALEATE 100 MG ORAL TABLET 259325 FLUVOXAMINE MALEATE Inactive FLUVOXAMINE MALEATE 100 MG ORAL TABLET Take one (1) tablet by mouth am, 1/2 at noon FLUVOXAMINE MALEATE 100 MG ORAL TABLET 527317 FLUVOXAMINE MALEATE Inactive BACTROBAN 2 % EXTERNAL CREAM Apply to affected area BID for up to 10 days BACTROBAN 2 % EXTERNAL CREAM 979462 MUPIROCIN CALCIUM Inactive NOVOFINE 32G X 6 MM use one four times per day NOVOFINE 32G X 6 MM INSULIN PEN NEEDLE Inactive TRAZODONE HCL 100 MG ORAL TABLET 1 tab by mouth for sleep TRAZODONE HCL 100 MG ORAL TABLET 823467 TRAZODONE HCL Inactive LOVAZA 1 GM ORAL CAPSULE 4 daily (for triglycerides) LOVAZA 1 GM ORAL CAPSULE 356686 [id number] ETHYL ESTERS Inactive METFORMIN HCL ER 500 [...] bladder TOLTERODINE TARTRATE 2 MG ORAL TABLET 731495 TOLTERODINE TARTRATE Inactive COLACE 100 MG ORAL CAPSULE 1 pill by mouth twice daily, for constipation 2014 COLACE 100 MG ORAL CAPSULE 3723553 DOCUSATE SODIUM Inactive LOMOTIL 2.5-0.025 MG ORAL TABLET take 1-2 tabs PO after each stool, no more than 8 in 24 hours LOMOTIL 2.5-0.025 MG ORAL TABLET 4286000 DIPHENOXYLATE-ATROPINE Inactive ZOFRAN 4 MG ORAL TABLET 1 po q4hr PRN Nausea ZOFRAN 4 MG ORAL TABLET 583387 ONDANSETRON HCL Inactive HYDROCODONE-ACETAMINOPHEN 5-325 MG ORAL TABLET 2 tabs by mouth three times daily for pain HYDROCODONE-ACETAMINOPHEN 5-325 MG ORAL TABLET 191748 HYDROCODONE-ACETAMINOPHEN Inactive ZOLPIDEM TARTRATE 10 MG ORAL TABLET take at bedtime ZOLPIDEM TARTRATE 10 MG ORAL TABLET 157358 ZOLPIDEM TARTRATE Inactive LISINOPRIL 20 MG ORAL TABLET 1 BID LISINOPRIL 20 MG ORAL TABLET 198968 LISINOPRIL Inactive TRAVATAN Z 0.004 % OPHTHALMIC SOLUTION 1 gtt each eye daily TRAVATAN Z 0.004 % OPHTHALMIC SOLUTION TRAVOPROST Inactive LATUDA 60 MG ORAL TABLET Take one by mouth daily LATUDA 60 MG ORAL TABLET LURASIDONE HCL Inactive FLUVOXAMINE MALEATE 50 MG ORAL TABLET 1 tab by mouth daily 04/01 FLUVOXAMINE MALEATE 50 MG ORAL TABLET 347556 FLUVOXAMINE MALEATE Inactive LEVEMIR FLEXTOUCH 100 UNIT/ML [...] 30G 3 a day TRUEPLUS LANCETS 30G 88429039331 LANCETS Inactive AMITIZA 24 MCG ORAL CAPSULE [...] noon FLUVOXAMINE MALEATE 100 MG ORAL TABLET 963947 FLUVOXAMINE MALEATE Inactive FLONASE ALLERGY RELIEF 50 MCG/ACT NASAL SUSPENSION One spray each nostril BID x 1 week then daily FLONASE ALLERGY RELIEF 50 MCG/ACT NASAL SUSPENSION 1319933 FLUTICASONE PROPIONATE Inactive IMODIUM A-D 2 MG ORAL TABLET 1 tab QID as needed IMODIUM A-D 2 MG ORAL TABLET 485816 LOPERAMIDE HCL Inactive MYLANTA GAS RELIEF MAXIMUM STR 125 MG ORAL CAPSULE 30cc every 4 hours prn MYLANTA GAS RELIEF MAXIMUM STR 125 MG ORAL CAPSULE SIMETHICONE Inactive TRUEPLUS LANCETS 30G 3x a day TRUEPLUS LANCETS 30G 42958412940 LANCETS Inactive TRUE METRIX BLOOD GLUCOSE TEST [...] headaches TRAZODONE HCL 100 MG ORAL TABLET 906725 TRAZODONE HCL Inactive CEFDINIR 300 MG ORAL CAPSULE by mouth twice a day CEFDINIR 300 MG ORAL CAPSULE 566830 CEFDINIR Inactive AZITHROMYCIN 500 MG INTRAVENOUS SOLUTION RECONSTITUTED 1 po q day AZITHROMYCIN 500 MG INTRAVENOUS SOLUTION RECONSTITUTED 63019259376 AZITHROMYCIN Inactive AMOXICILLIN 500 MG ORAL CAPSULE 2 po BID x 10 days AMOXICILLIN 500 MG ORAL CAPSULE 645938 AMOXICILLIN Inactive PENICILLIN V POTASSIUM 500 MG ORAL TABLET 1 pill by mouth three times daily PENICILLIN V POTASSIUM 500 MG ORAL TABLET 690668 PENICILLIN V POTASSIUM Inactive KEFLEX 500 MG ORAL CAPSULE 1 po BID x 7 days KEFLEX 500 MG ORAL CAPSULE 085866 CEPHALEXIN Inactive Immunizations Vaccine Administration Date Value [...] Fluvirin, Fluarix, Agriflu(>=18 yo)) Fluzone (>3 yrs.) [[id number]] Influenza, seasonal, injectable pneumococcal immunization administered Pneumovax 23 [CVX33] pneumococcal polysaccharide vaccine, 23 valent Vital Signs Date Name Value Unit Range Description blood pressure, diastolic, repeated by physician 93 BP garcia blood pressure, diastolic 93 mm[Hg] BP garcia blood pressure, systolic, repeated by physician 149 BP sys blood pressure, systolic 149 mm[Hg] BP sys height E&M 70 [in_us] Bdy height pulse rate E&M 60 /min Heart rate temperature E&M 98.0 [degF] Body temperature weight E&M 219.80 [lb_av] Weight Measured Encounters Code Encounter Date Provider Facility CPT-[id number] Level 3 Est. 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 Patient 16:52:51 CDT Vanessa Hickey MD [facility] CPT-63504 Level 3 Est. Patient 17:40:16 CDT Mima Erazo [facility] [place] CPT-14517 Level 3 Est. Patient 14:34:52 CDT Vanessa Hickey MD [facility]-49083 Level 3 Est. Patient 16:27:51 CDT Mima Erazo [facility]-95014 Level 3 Est. 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 Patient 18:43:34 CDT Mima Erazo [facility] CPT-90145 Level 3 Est. Patient 16:22:09 CDT Cherelle Avila [facility] CPT-84335 Level 4 Est. Patient 17:55:14 CDT Mima Erazo [facility] CPT-05065 Level 2 Est. Patient 17:13:21 CDT Alina Castaneda MD [facility]-06920 Level 3 Est. Patient 14:46:15 CDT Vanessa Hickey MD [facility]-78109 Level 3 Est. Patient 09:34:56 CDT Alina Castaneda MD [facility]74363 Level 3 Est. Patient 21:40:19 CDT Mima Erazo [facility] CPT-94154 Level 3 Est. Patient 09:26:40 CDT [facility]-13490 Level 3 Est. Patient 12:36:43 CDT Vanessa Hickey MD [facility]-11572 Level 3 Est. Patient 12:57:49 CDT Vanessa Hickey MD [facility]17442 Level 3 Est. Patient 00:28:25 CDT Alina Castaneda MD PhD [facility]12790 Level 2 Est. Patient 12:52:14 CDT Alina Castaneda MD PhD [facility] CPT-49604 Level 3 Est. Patient 11:51:18 [employer]BE[employer] Alina Castaneda MD [facility]-36932 Level 3 Est. Patient 10:09:22 [employer]GUILLON DEBEADER Alina Castaneda MD [facility]07294 Level 3 Est. Patient 14:36:26 [facility]-30896 Level 3 Est. Patient 13:34:47 [employer]GUILLON DEBEADER Alina Castaneda MD [facility] [place] Level 3 Est. Patient 19:52:08 [employer] DEBEADER Alina Castaneda MD [facility]-66243 Level 3 Est. Patient 10:01:51 [employer]BE[employer] [facility]-26569 Level 3 Est. Patient 21:54:06 CDT Vanessa Hickey MD [facility]-18702 Level 3 Est. Patient 08:54:46 CDT Alina Castaneda MD [facility]-42060 Level 3 Est. Patient 09:32:11 CDT [facility]-37775 Level 3 Est. Patient 12:02:49 CDT Alina Castaneda MD [facility]-30008 Level 3 Est. Patient 19:17:33 CDT Alina Castaneda MD [facility] [place] Level 3 Est. Patient 13:19:10 CDT [facility]-68578 Level 3 Est. Patient 08:20:05 CDT Alina Castaneda MD [facility] [place] Level 3 Est. Patient 15:17:18 CDT Alina Castaneda MD [facility] [place] Level 3 Est. Patient 14:25:36 [employer] DEBE[employer] [facility]-78979 Level 3 Est. Patient 10:09:15 [employer]LL[employer] DEBE[employer]ER [facility]-68885 Level 3 Est. Patient 21:28:43 CDT Alina Castaneda MD [facility]-70453 Level 3 Est. Patient 15:20:11 CDT [facility]-44969 Level 4 Est. Patient 19:08:12 CDT Alina Castaneda MD [facility]-34816 Level 3 Est. Patient 15:06:39 CDT [facility]-42842 Level 4 Est. Patient 17:48:15 CDT Alina Castaneda MD [facility]-49179 Level 3 Est. Patient 14:53:49 CDT Alina Castaneda MD [facility]-04262 Level 3 Est. Patient 09:35:16 CDT Alina Castaneda MD [facility]-59273 Level 3 Est. Patient 12:23:22 CDT Alina Castaneda MD [facility]-00727 Level 3 Est. Patient 16:19:15 CDT Alina Castaneda MD [facility]-08108 Level 3 Est. Patient 21:39:56 [employer]BE[employer]ER Alina Castaneda MD [facility]-53738 Level 4 Est. Patient 14:12:56 [employer]GUILLON DEBEADER Alina Castaneda MD [facility]-73894 Level 2 Est. Patient 15:34:57 [employer]GUI[employer] DEBEADER Alina Castaneda MD [facility]-81998 Level 3 Est. Patient 12:17:04 [employer] DEBEADER Alina Castaneda MD [facility]-64171 Level 3 Est. Patient 09:18:18 [employer]LLON DEBEADER [facility]-52707 Level 2 Est. Patient 21:50:24 CDT Alina Castaneda MD [facility] [place] Level 3 Est. Patient 09:17:28 CDT [facility]-01066 Level 4 Est. Patient 18:54:02 CDT Alina Castaneda MD [facility] [place] Level 3 Est. Patient 10:47:10 CDT Alina Castaneda MD [facility]-41021 Level 3 Est. Patient 09:22:20 CDT [facility]-32783 Level 3 Est. Patient 16:39:43 CDT Marvel [facility]-88429 Level 3 Est. Patient 16:05:16 CDT Alina Castaneda MD [facility]-47387 Level 3 Est. Patient 00:29:15 CDT Alina Castaneda MD [facility]-03129 Level 3 Est. Patient 10:49:22 [employer]LL[employer] DEBE[employer]ER [place] [facility]-82299 Level 3 Est. Patient 21:30:19 [employer]GUILLON DEBEADER Alina Castaneda MD [facility] [place] Level 4 Est. Patient 17:04:11 LEGUILLON DEBEADER [facility]-52949 Level 3 Est. Patient 15:34:11 [employer]ON DEBE[employer]ER [place] [facility]-93839 Level 2 Est. Patient 12:51:58 [employer] DEBE[employer]ER Alina aCstaneda MD PhD [facility] CPT-53036 Level 3 Est. Patient 13:20:01 [employer]BEADER Alina Castaneda MD PhD [facility] CPT-36198 Level 3 Est. Patient 09:23:35 CDT Alina Castaneda MD PhD [facility] Procedures Code Procedure Name Date Entry Date Standard Description CPT-99942 Level 2 Mcc 09:01:11 CDT CPT-07490 HGBA1C - LAB USE ONLY 09:30:27 [employer]BE[employer] CPT-06702 BMP - LAB USE ONLY 09:30:27 [employer] CPT-81067 Venipuncture Draw Fee 09:30:26 [employer] DEBEADER CPT-TCMM Transitional Care Mgmt-Moderate 10:25:31 CDT CPT-42141 Bladder Scan 14:34:53 CDT CPT-92267 Bladder Scan 14:39:01 [employer]BE[employer] CPT-TCMM Transitional Care Mgmt-Moderate 10:30:19 [employer]BE[employer] CPT-71110 Bladder Scan 12:36:44 CDT CPT-73496 Bladder Scan 21:54:06 CDT CPT-G0008 Administration of Influenza Virus Vaccine 13:05:26 CDT CPT-05921 Fluzone Quadrivalent Intramuscular Suspension 0.5 ML 13: 05:26 CDT CPT-84024 Administration single or combination vaccine inc oral 11 :49:51 CDT CPT-00609 Pneumovax 11:49:51 CDT CPT-43632 Ribs unilateral 2V 12:37:22 [employer]BE[employer] CPT-81483 Chest 2V Frontal and Lat 17:15:26 CDT CPT-19858 Abx/Therapy Injection 18:54:02 CDT CPT-J0696 Rocephin 1000 mg (Ceftriaxone) 16:00:32 CDT CPT-54556 Chest 2V Frontal and Lat 15:26:45 CDT CPT-53816 Chest 2V Frontal and Lat 10:23:27 CDT CPT-09547 Venipuncture Draw Fee 10:11:00 CDT CPT-42263 Administration single or combination vaccine inc oral 11 :56:38 CDT CPT-14288 Influenza split virus > age 3 11:56:38 CDT CPT-22628 Venipuncture Draw Fee 08:49:54 [employer]BE[employer]ER CPT-49753 EKG Trac and Interp 17:54:19 [employer] DEBEADER
--- OUTSIDE RECORDS SUMMARY | 2018-07-02 13:12 | XMS REPORT | Clinical Summary ---
Author Author Admin, TERELL Organization [facility] Address Unknown Phone Unavailable Allergies, Adverse Reactions, [...] mellitus, type II 250.00 Active Marvel Thurstonari TRANSFERRER Diabetes mellitus without mention of complication, type [...] Active Mason Loredo MD Obesity , unspecified DIABETES, TYPE 2 ICD-250.00 Inactive Alina Castaneda MD PhD HYPERTENSION ICD-401.9 Inactive Alnia Castaneda MD PhD URI ICD-465.9 Inactive Alina Castaneda MD PhD CHEST PAIN ICD-786.50 Inactive Alina Castaneda MD PhD WOUND, OPEN, NOSE ICD-873.20 Inactive Alina Castaneda MD PhD FATIGUE ICD-780.79 Inactive Alina Castaneda MD PhD UNSPECIFIED TACHYCARDIA ICD-785.0 Inactive Alina Castaneda MD PhD FH STROKE ICD-V17.1 Inactive Marvel MARROQUIN PROBLEMS RELATED TO HIGH-RISK SEXUAL BEHAVIOR ICD-V69.2 Inactive Alina Castaneda MD PhD CHEST COUGH ICD-786.2 Inactive Alina Castaneda MD PhD SINUSITIS, ACUTE ICD-461.9 Inactive Alina Castaneda MD PhD BRONCHITIS, ACUTE ICD-466.0 Inactive Alina Castaneda MD PhD DIABETES MELLITUS, TYPE II, UNCONTROLLED ICD-250.02 Inactive Marvel MARROQUIN ABNORMAL HEART RHYTHMS ICD-427.9 Inactive Alina Castaneda MD PhD RIB PAIN, RIGHT SIDED ICD-786.50 Inactive Alina Castaneda MD PhD SINUSITIS, ACUTE ICD-461.9 Inactive Alina Castaneda MD PhD DIABETIC HYPOGLYCEMIA, TYPE II ICD-250.80 Inactive Marvel 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 Inactive Alina Castaneda MD PhD PNEUMONIA, ORGANISM UNSPECIFIED ICD-486 Inactive Alina Castaneda MD PhD SPECIAL SCREENING [...] MD PHARYNGITIS ICD-462 Inactive Mason Loredo MD SKIN LESION ICD-709.9 Inactive Alina Castaneda MD PhD Diabetes mellitus, type II, uncontrolled ICD-250.02 Inactive Alina Castaneda MD PhD Medication List Medication Instructions Start Date Stop Date Generic Name [facility] Status Provider Patient Instruction TOPAMAX 25 MG ORAL TABLET 1 tab BID PRN TOPIRAMATE 84534306896 Active Mason Loredo MD Active TIMOPTIC OCUDOSE 0.5 % OPHTHALMIC SOLUTION instill one drop into both eyes q12H TIMOLOL MALEATE 11288240629 Active Mason Loredo MD Active TRAZODONE HCL 100 MG ORAL TABLET 1 every night to prevent headaches TRAZODONE HCL 64743454455 No Longer Active Mason Loredo MD Active TRAVATAN Z 0.004 % OPHTHALMIC SOLUTION 1 drop each eye daily 2017 TRAVOPROST 61078599816 No Longer Active Mason Loredo MD Active LATUDA 60 MG ORAL TABLET 1 tab daily LURASIDONE HCL 09619406805 No Longer Active Mason Loredo MD Active MORPHINE SULFATE ER 30 MG ORAL TABLET EXTENDED RELEASE Take one capsule BID MORPHINE SULFATE 53546829671 No Longer Active Mason Loredo MD Active TRUE METRIX BLOOD GLUCOSE TEST IN VITRO STRIP Check blood sugars 3x/day. 2015 GLUCOSE BLOOD 03082308913 No Longer Active Mason Loredo MD Active TRUEPLUS LANCETS 30G 3x a day LANCETS 94257905233 No Longer Active Mason Loredo MD Active MYLANTA GAS RELIEF MAXIMUM STR 125 MG ORAL CAPSULE 30cc every 4 hours prn SIMETHICONE 94543505220 No Longer Active Mason Loredo MD Active IMODIUM A-D 2 MG ORAL TABLET 1 tab QID as needed LOPERAMIDE HCL 78926768670 No Longer Active Mason Loredo MD Active FLONASE ALLERGY RELIEF 50 MCG/ACT NASAL SUSPENSION One spray each nostril BID x 1 week then daily FLUTICASONE PROPIONATE 59192551570 No Longer Active Mason Loredo MD Active FLUVOXAMINE MALEATE 100 MG ORAL TABLET take one tab every AM et HS, and take 1 /2 tab at noon FLUVOXAMINE MALEATE 24629418536 No Longer Active Mason Loredo MD Active BD PEN NEEDLE MINI U/F 31G X 5 MM 4 a day INSULIN PEN NEEDLE 54105964248 No Longer Active Mason Loredo MD Active AMITIZA 24 MCG ORAL CAPSULE Take one capsule BID for constipation LUBIPROSTONE 65588366435 No Longer Active Mason Loredo MD Active TRUEPLUS LANCETS 30G 3 a day LANCETS 46572810250 No Longer Active Mason Loredo MD Active CORICIDIN HBP CONGESTION/COUGH 10-200 MG ORAL CAPSULE Take as directed on box as needed for cold/flu symptoms DEXTROMETHORPHAN- GUAIFENESIN 04192097204 No Longer Active Mason Loredo MD Active OMEGA-3 300 MG ORAL CAPSULE 4 caps by mouth daily OMEGA-3 FATTY ACIDS 56088622167 No Longer Active Mason Loredo MD Active HUMALOG KWIKPEN 100 UNIT/ML SUBCUTANEOUS SOLUTION PEN-INJECTOR sliding scale if needed INSULIN LISPRO (HUMAN) 45155033970 No Longer Active Mason Loredo MD Active TRUETEST TEST IN VITRO STRIP check blood sugars 3x/day GLUCOSE BLOOD 08112227522 No Longer Active Mason Loredo MD Active ALFUZOSIN HCL ER 10 MG ORAL TABLET EXTENDED RELEASE 24 HOUR 1 tablet daily ALFUZOSIN HCL 76883678644 No Longer Active Mason Loredo MD Active BD INSULIN SYRINGE 28G X 1/2" 1 ML 1 four times per day INSULIN SYRINGE-NEEDLE U-100 47627667187 No Longer Active Mason Loredo MD Active LEVEMIR FLEXTOUCH 100 UNIT/ML SUBCUTANEOUS SOLUTION PEN-INJECTOR 60 units SQ each evening, for diabetes INSULIN DETEMIR 24854232923 No Longer Active Mason Loredo MD Active METFORMIN HCL ER (MOD) 500 MG ORAL TABLET EXTENDED RELEASE 24 HOUR give two tabs PO BID METFORMIN HCL 22984700916 Active Mason Loredo MD Active LACTULOSE 20 GM/30ML ORAL SOLUTION give 30 Ml PO BID PRN LACTULOSE 07004279626 Active Mason Loredo MD Active COLACE 100 MG ORAL CAPSULE 1 tab BID PRN DOCUSATE SODIUM 75235336615 Active Mason Loredo MD Active TAMSULOSIN HCL 0.4 MG ORAL CAPSULE give 2 capsules PO each evening TAMSULOSIN HCL 32754770622 Active Mason Loredo MD Active [facility] MELATONIN 3 MG ORAL TABLET give 1 tab by mouth at HS MELATONIN 24411352308 Active Mason Loredo MD Active LATANOPROST 0.005 % OPHTHALMIC SOLUTION instill 1 drop in both eyes at bed time LATANOPROST 47687493593 Active Mason Loredo MD Active AMARYL 2 MG ORAL TABLET give 2.5 tabs PO daily GLIMEPIRIDE 59461780118 Active Mason Loredo MD Active MIRALAX ORAL POWDER 17g by mouth q12h, for constipation POLYETHYLENE GLYCOL 3350 56943465590 Active Mason Loredo MD Active IBUPROFEN 400 MG ORAL TABLET 1 tab Q6H PRN IBUPROFEN 35145116080 Active Mason Loredo MD Active EFFEXOR XR 37.5 MG ORAL CAPSULE EXTENDED RELEASE 24 HOUR Take one by mouth daily VENLAFAXINE HCL 94036619931 Active Mima Erazo APRN Active FLUVOXAMINE MALEATE 50 MG ORAL TABLET 1 tab by mouth daily 04/01 FLUVOXAMINE MALEATE 27639872992 No Longer Active Mima Erazo APRN Active TRUE METRIX METER w/Device KIT Check blood sugars 3x/day BLOOD GLUCOSE MONITORING SUPPL 58257553243 Active Marvel MARROQUIN Active VITAMIN D 2000 UNIT ORAL CAPSULE Take one by mouth daily CHOLECALCIFEROL 69851652766 Active Mima Erazo APRN Active LATUDA 60 MG ORAL TABLET Take one by mouth daily LURASIDONE HCL 34758566490 No Longer Active Mima Erazo APRN Active CLONAZEPAM 1 MG ORAL TABLET 1 pill by mouth three times daily CLONAZEPAM 02776849930 Active Gabrielle Marquez MA Active [facility] MILK OF MAGNESIA 400 MG/5ML ORAL SUSPENSION 30ml by mouth bid prn MAGNESIUM HYDROXIDE 53927463212 Active Mason Loredo MD Active TYLENOL 8 HOUR 650 MG ORAL TABLET EXTENDED RELEASE 1 tab QID prn ACETAMINOPHEN 57450270367 Active Mason Loredo MD Active TRAVATAN Z 0.004 % OPHTHALMIC SOLUTION 1 gtt each eye daily TRAVOPROST 63641437491 No Longer Active Mason Loredo MD Active LISINOPRIL 20 MG ORAL TABLET 1 BID LISINOPRIL 73965894089 No Longer Active Mason Loredo MD Active ZOLPIDEM TARTRATE 10 MG ORAL TABLET take at bedtime ZOLPIDEM TARTRATE 18497991730 No Longer Active Mason Loredo MD Active HYDROCODONE-ACETAMINOPHEN 5-325 MG ORAL TABLET 2 tabs by mouth three times daily for pain HYDROCODONE-ACETAMINOPHEN 33951602385 No Longer Active Mason Loredo MD Active ZOFRAN 4 MG ORAL TABLET 1 po q4hr PRN Nausea ONDANSETRON HCL 79029865802 No Longer Active Mason Loredo MD Active LOMOTIL 2.5-0.025 MG ORAL TABLET take 1-2 tabs PO after each stool, no more than 8 in 24 hours DIPHENOXYLATE-ATROPINE 30746896446 No Longer Active Mason Loredo MD Active COLACE 100 MG ORAL CAPSULE 1 pill by mouth twice daily, for constipation 2014 DOCUSATE SODIUM 52283912472 No Longer Active Mima Erazo APRN Active TOLTERODINE TARTRATE 2 MG ORAL TABLET 1 pill twice daily, for bladder TOLTERODINE TARTRATE 17905291037 No Longer Active Vanessa Hickey MD Active AMITIZA 24 MCG ORAL CAPSULE Take one capsule BID for constipation. LUBIPROSTONE 92684584530 No Longer Active Vanessa Hickey MD Active METOPROLOL SUCCINATE ER 100 MG ORAL TABLET EXTENDED RELEASE 24 HOUR 1 by mouth daily for blood pressure METOPROLOL SUCCINATE 95724624701 No Longer Active Grace ROJAS Active METFORMIN HCL ER 500 MG ORAL TABLET EXTENDED RELEASE 24 HOUR Take three tablets by mouth everyday METFORMIN HCL 54042875124 No Longer Active Grace ROJAS Active LOVAZA 1 GM ORAL CAPSULE 4 daily (for triglycerides) [id number]-[id number] ETHYL ESTERS 43843918494 No Longer Active Grace Nascimento RMA Active TRAZODONE HCL 100 MG ORAL TABLET 1 tab by mouth for sleep TRAZODONE HCL 57049305209 No Longer Active Grace Nascimento RMA Active NOVOFINE 32G X 6 MM use one four times per day INSULIN PEN NEEDLE 27953226385 No Longer Active Grace Nascimento RMAriela Active BACTROBAN 2 % EXTERNAL CREAM Apply to affected area BID for up to 10 days MUPIROCIN CALCIUM 67364579413 No Longer Active Grace ROJAS Active KEFLEX 500 MG ORAL CAPSULE 1 po BID x 7 days CEPHALEXIN 76415782394 No Longer Active Cherelle Avila APRN Active FLUVOXAMINE MALEATE 100 MG ORAL TABLET Take one (1) tablet by mouth am, 1/2 at noon FLUVOXAMINE MALEATE 35779190523 No Longer Active Mima Erazo APRN Active FLUVOXAMINE MALEATE 100 MG ORAL TABLET Take 1/2 tab at noon 03/04 FLUVOXAMINE MALEATE 75845158673 No Longer Active Cherelle Avila APRN Active [facility] LUBRICANT EYE DROPS 0.4-0.3 % OPHTHALMIC SOLUTION POLYETHYL GLYCOL-PROPYL GLYCOL 08198691538 Active Mima Erazo APRN Active ACCU-CHEK ROSA DEVICE Use device to check blood sugars BLOOD GLUCOSE MONITORING SUPPL 07637793700 No Longer Active Marvel MARROQUIN Active ACCU-CHEK ROSA IN VITRO STRIP use strips with device to check blood sugars 3 times daily GLUCOSE BLOOD 64080416575 No Longer Active Maljohn MENDOZAP Active VERAPAMIL HCL ER 180 MG ORAL TABLET EXTENDED RELEASE 1 pill by mouth twice daily, for migraine prevention VERAPAMIL HCL 97533745387 Active Mima Erazo APRN Active CYCLOBENZAPRINE HCL 10 MG ORAL TABLET 1 tablet by mouth three times daily, scheduled CYCLOBENZAPRINE HCL 76356365861 No Longer Active Alina Castaneda MD PhD Active HUMALOG 100 UNIT/ML SUBCUTANEOUS SOLUTION Take 20 units with breakfast, 10u with lunch and suppetr. INSULIN LISPRO (HUMAN) 01866482579 No Longer Active Alina Castaneda MD PhD Active TRUETEST TEST IN VITRO STRIP check sugars 4x/day GLUCOSE BLOOD 55528415799 No Longer Active Alina Castaneda MD PhD Active MORPHINE SULFATE 30 MG ORAL TABLET 1 pill by mouth twice daily, for pain 2013 MORPHINE SULFATE 69604550915 No Longer Active Mason Loredo MD Active ACYCLOVIR 400 MG ORAL TABLET 1 pill three times daily x 5 days, for cold sore outbreak ACYCLOVIR 08940771392 No Longer Active Alina Castaneda MD PhD Active PENICILLIN V POTASSIUM 500 MG ORAL TABLET 1 pill by mouth three times daily PENICILLIN V POTASSIUM 69694833084 No Longer Active Alina Castaneda MD PhD Active UROXATRAL 10 MG ORAL TABLET EXTENDED RELEASE 24 HOUR Take 1 tablet by mouth daily ALFUZOSIN HCL 57189733438 No Longer Active Alina Castaneda MD PhD Active THIOTHIXENE 5 MG ORAL CAPSULE by mouth twice a day THIOTHIXENE 98809628862 No Longer Active Alina Castaneda MD PhD Active ZYPREXA 7.5 MG ORAL TABLET 1 at HS OLANZAPINE 36459326802 No Longer Active Alina Castaneda MD PhD Active DETROL LA 4 MG ORAL CAPSULE EXTENDED RELEASE 24 HOUR Take 1 tablet by mouth daily TOLTERODINE TARTRATE 50415259135 No Longer Active Alina Castaneda MD PhD Active TERESE CONTOUR TEST IN VITRO STRIP monitor blood sugars 3x/day GLUCOSE BLOOD 48066437986 No Longer Active Alina Castaneda MD PhD Active EQL TRUETEST TEST IN VITRO STRIP Test blood sugar TID GLUCOSE BLOOD 08094895739 No Longer Active Alina Castaneda MD PhD Active FLUTICASONE PROPIONATE 50 MCG/ACT NASAL SUSPENSION 2 sprays each nostril qDay x 30 days FLUTICASONE PROPIONATE 23166685423 No Longer Active Alina Castaneda MD PhD Active IBUPROFEN 200 MG ORAL TABLET 1 Q 6 hr. PRN IBUPROFEN 91514128141 No Longer Active Alina Castaneda MD PhD Active NIACIN ER 500 MG ORAL TABLET EXTENDED RELEASE 4 qHS (for triglycerides) 01/13 NIACIN 26346753867 No Longer Active Alina Castaneda MD PhD Active SAPHRIS 5 MG SUBLINGUAL TABLET SUBLINGUAL by mouth twice a day ASENAPINE MALEATE 85627753139 No Longer Active Maljohn MARROQUIN Active ACETAMINOPHEN 500 MG ORAL TABLET 2 Q 6 hr. PRN ACETAMINOPHEN 37975092539 No Longer Active Marvel MARROQUIN Active ORPHENADRINE CITRATE ER 100 MG ORAL TABLET EXTENDED RELEASE 12 HOUR 1 every 12 hr. as needed ORPHENADRINE CITRATE 81502118174 No Longer Active Alina Castaneda MD PhD Active NIACIN ER 500 MG ORAL TABLET EXTENDED RELEASE 2 qHS NIACIN 84417700818 No Longer Active Alina Castaneda MD PhD Active AMOXICILLIN 500 MG ORAL CAPSULE 2 po BID x 10 days AMOXICILLIN 24967981037 No Longer Active Alina Castaneda MD PhD Active HYDROCODONE-ACETAMINOPHEN 7.5-325 MG ORAL TABLET 1 four times a day as needed for pain HYDROCODONE-ACETAMINOPHEN 79608557608 No Longer Active Alina Castaneda MD PhD Active DOXEPIN HCL 10 MG ORAL CAPSULE Take 1 tablet by mouth daily DOXEPIN HCL 54126230352 No Longer Active Salina ROBBINSA Active NAVANE 10 MG CAPS 1/2 tablet twice a day THIOTHIXENE No Longer Active Salina ROBBINSA Active CYCLOBENZAPRINE HCL 10 MG ORAL TABLET 1/2 tablet by mouth every 8 hours as needed for muscle spasms CYCLOBENZAPRINE HCL 93599862632 No Longer Active Alina Castaneda MD PhD Active BACTROBAN 2 % EXTERNAL CREAM apply to ear and nose twice daily MUPIROCIN CALCIUM 53612469526 No Longer Active Alina Castaneda MD PhD Active HYDROCODONE-ACETAMINOPHEN 5-325 MG ORAL TABLET take one tablet by mouth every four hours as needed for pain HYDROCODONE-ACETAMINOPHEN 50623072609 No Longer Active Alina Castaneda MD PhD Active ZYPREXA 5 MG ORAL TABLET take one tablet by mouth every evening OLANZAPINE 35989251917 No Longer Active Alina Castaneda MD PhD Active ALBUTEROL SULFATE (2.5 MG/3ML) 0.083% INHALATION NEBULIZATION SOLUTION one vial per nebulizer TID and PRN cough/soa ALBUTEROL SULFATE 34099870499 No Longer Active Alina Castaneda MD PhD Active GUAIFENESIN ER 600 MG ORAL TABLET EXTENDED RELEASE 12 HOUR 1 tablet by mouth twice daily if needed for cough GUAIFENESIN 40533161622 No Longer Active Marvel MARROQUIN Active AZITHROMYCIN 500 MG INTRAVENOUS SOLUTION RECONSTITUTED 1 po q day AZITHROMYCIN 98398709212 No Longer Active Alina Castaneda MD PhD Active PROMETHAZINE-CODEINE 6.25-10 MG/5ML ORAL SYRUP 1 tsp po q 6 hours prn cough PROMETHAZINE-CODEINE 40797534878 No Longer Active Alina Castaneda MD PhD Active CEFDINIR 300 MG ORAL CAPSULE by mouth twice a day CEFDINIR 44091188439 No Longer Active Alina Castaneda MD PhD Active METFORMIN HCL ER 500 MG ORAL TABLET EXTENDED RELEASE 24 HOUR Take 3 tablets by mouth everyday METFORMIN HCL 69262685586 No Longer Active Alina Castaneda MD PhD Active LEVEMIR 100 UNIT/ML SUBCUTANEOUS SOLUTION 90 units SQ qHS INSULIN DETEMIR 71273922777 No Longer Active Marvel MARROQUIN Active TOPROL XL 100 MG ORAL TABLET EXTENDED RELEASE 24 HOUR 1 @ HS METOPROLOL SUCCINATE 27197109469 No Longer Active Marvel MARROQUIN Active ALLOPURINOL 300 MG ORAL TABLET Take one by mouth daily ALLOPURINOL 98844852573 Active Mima Erazo APRN Active ZYPREXA 10 MG ORAL TABLET Take one by mouth daily OLANZAPINE 09012382925 No Longer Active Alina Castaneda MD PhD Active NOVOLOG 100 UNIT/ML SUBCUTANEOUS SOLUTION 40 units with every meal INSULIN ASPART 13294020716 No Longer Active Alina Castaneda MD PhD Active VERAPAMIL HCL ER 120 MG ORAL TABLET EXTENDED RELEASE 1 qPM 09/08 VERAPAMIL HCL 49009286944 No Longer Active Salina ROJAS Active ZYPREXA 15 MG ORAL TABLET Take 1 tablet by mouth daily OLANZAPINE 87498882939 No Longer Active Marvel MARROQUIN Active ALBUTEROL SULFATE (2.5 MG/3ML) 0.083% INHALATION NEBULIZATION SOLUTION 1 neb tid and prn cough ALBUTEROL SULFATE 48544166406 No Longer Active Alina Castaneda MD PhD Active LANTUS 100 UNIT/ML SUBCUTANEOUS SOLUTION 60 units sq q hs INSULIN GLARGINE 97037905822 No Longer Active CRYSTAL Suarez Active ALBUTEROL SULFATE (2.5 MG/3ML) 0.083% INHALATION NEBULIZATION SOLUTION 1 neb tid and prn cough ALBUTEROL SULFATE (2.5 MG/3ML) 0.083% INHALATION NEBULIZATION SOLUTION 524503 ALBUTEROL SULFATE Inactive ZYPREXA 15 MG ORAL TABLET Take 1 tablet by mouth daily ZYPREXA 15 MG ORAL TABLET 750854 OLANZAPINE Inactive VERAPAMIL HCL ER 120 MG ORAL TABLET EXTENDED RELEASE 1 qPM 09/08 VERAPAMIL HCL ER 120 MG ORAL TABLET EXTENDED RELEASE VERAPAMIL HCL Inactive ZYPREXA 10 MG ORAL TABLET Take one by mouth daily ZYPREXA 10 MG ORAL TABLET 987896 OLANZAPINE Inactive TOPROL XL 100 MG ORAL TABLET EXTENDED RELEASE 24 HOUR 1 @ HS TOPROL XL 100 MG ORAL TABLET EXTENDED RELEASE 24 HOUR METOPROLOL SUCCINATE Inactive LEVEMIR 100 UNIT/ML SUBCUTANEOUS SOLUTION 90 units SQ qHS LEVEMIR 100 UNIT/ML SUBCUTANEOUS SOLUTION INSULIN DETEMIR Inactive PROMETHAZINE-CODEINE 6.25-10 MG/5ML ORAL SYRUP 1 tsp po q 6 hours prn cough PROMETHAZINE-CODEINE 6.25-10 MG/5ML ORAL SYRUP 883451 PROMETHAZINE-CODEINE Inactive GUAIFENESIN ER 600 MG ORAL TABLET EXTENDED RELEASE 12 HOUR 1 tablet by mouth twice daily if needed for cough GUAIFENESIN ER 600 MG ORAL TABLET EXTENDED RELEASE 12 HOUR GUAIFENESIN Inactive ALBUTEROL SULFATE (2.5 MG/3ML) 0.083% INHALATION NEBULIZATION SOLUTION one vial per nebulizer TID and PRN cough/soa ALBUTEROL SULFATE (2.5 MG/3ML) 0.083% INHALATION NEBULIZATION SOLUTION 563659 ALBUTEROL SULFATE Inactive ZYPREXA 5 MG ORAL TABLET take one tablet by mouth every evening ZYPREXA 5 MG ORAL TABLET 587069 OLANZAPINE Inactive HYDROCODONE-ACETAMINOPHEN 5-325 MG ORAL TABLET take one tablet by mouth every four hours as needed for pain HYDROCODONE-ACETAMINOPHEN 5-325 MG ORAL TABLET 263213 HYDROCODONE-ACETAMINOPHEN Inactive BACTROBAN 2 % EXTERNAL CREAM apply to ear and nose twice daily BACTROBAN 2 % EXTERNAL CREAM 575176 MUPIROCIN CALCIUM Inactive CYCLOBENZAPRINE HCL 10 MG ORAL TABLET 1/2 tablet by mouth every 8 hours as needed for muscle spasms CYCLOBENZAPRINE HCL 10 MG ORAL TABLET 340096 CYCLOBENZAPRINE HCL Inactive NAVANE 10 MG CAPS 1/2 tablet twice a day NAVANE 10 MG CAPS THIOTHIXENE Inactive DOXEPIN HCL 10 MG ORAL CAPSULE Take 1 tablet by mouth daily DOXEPIN HCL 10 MG ORAL CAPSULE 0262904 DOXEPIN HCL Inactive HYDROCODONE-ACETAMINOPHEN 7.5-325 MG ORAL TABLET 1 four times a day as needed for pain HYDROCODONE-ACETAMINOPHEN 7.5-325 MG ORAL TABLET 888614 HYDROCODONE-ACETAMINOPHEN Inactive NIACIN ER 500 MG ORAL [...] hr. PRN ACETAMINOPHEN 500 MG ORAL TABLET 308205 ACETAMINOPHEN Inactive SAPHRIS 5 MG SUBLINGUAL TABLET SUBLINGUAL by mouth twice a day SAPHRIS 5 MG SUBLINGUAL TABLET SUBLINGUAL ASENAPINE MALEATE Inactive NIACIN ER 500 MG ORAL TABLET EXTENDED RELEASE 4 qHS (for triglycerides) 01/13 NIACIN ER 500 MG ORAL TABLET EXTENDED RELEASE NIACIN Inactive IBUPROFEN 200 MG ORAL TABLET 1 Q 6 hr. PRN IBUPROFEN 200 MG ORAL TABLET 259559 IBUPROFEN Inactive FLUTICASONE PROPIONATE 50 MCG/ACT NASAL SUSPENSION 2 sprays each nostril qDay x 30 days FLUTICASONE PROPIONATE 50 MCG/ACT NASAL SUSPENSION 7554538 FLUTICASONE PROPIONATE Inactive EQL TRUETEST TEST IN [...] at HS ZYPREXA 7.5 MG ORAL TABLET 882177 OLANZAPINE Inactive THIOTHIXENE 5 MG ORAL CAPSULE by mouth twice a day THIOTHIXENE 5 MG ORAL CAPSULE 868378 THIOTHIXENE Inactive UROXATRAL 10 MG ORAL TABLET EXTENDED RELEASE 24 HOUR Take 1 tablet by mouth daily UROXATRAL 10 MG ORAL TABLET EXTENDED RELEASE 24 HOUR ALFUZOSIN HCL Inactive ACYCLOVIR 400 MG ORAL TABLET 1 pill three times daily x 5 days, for cold sore outbreak ACYCLOVIR 400 MG ORAL TABLET 304842 ACYCLOVIR Inactive TRUETEST TEST IN VITRO STRIP check sugars 4x/day TRUETEST TEST IN VITRO STRIP GLUCOSE BLOOD Inactive HUMALOG 100 UNIT/ML SUBCUTANEOUS SOLUTION Take 20 units with breakfast, 10u with lunch and suppetr. HUMALOG 100 UNIT/ML SUBCUTANEOUS SOLUTION INSULIN LISPRO (HUMAN) Inactive CYCLOBENZAPRINE HCL 10 MG ORAL TABLET 1 tablet by mouth three times daily, scheduled CYCLOBENZAPRINE HCL 10 MG ORAL TABLET 386840 CYCLOBENZAPRINE HCL Inactive ACCU-CHEK ROSA IN VITRO STRIP use strips with device to check blood sugars 3 times daily ACCU-CHEK ROSA IN VITRO STRIP GLUCOSE BLOOD Inactive ACCU-CHEK ROSA DEVICE Use device to check blood sugars ACCU-CHEK ROSA DEVICE BLOOD GLUCOSE MONITORING SUPPL Inactive FLUVOXAMINE MALEATE 100 MG ORAL TABLET Take 1/2 tab at noon 03/04 FLUVOXAMINE MALEATE 100 MG ORAL TABLET 218381 FLUVOXAMINE MALEATE Inactive FLUVOXAMINE MALEATE 100 MG ORAL TABLET Take one (1) tablet by mouth am, 1/2 at noon FLUVOXAMINE MALEATE 100 MG ORAL TABLET 679865 FLUVOXAMINE MALEATE Inactive BACTROBAN 2 % EXTERNAL CREAM Apply to affected area BID for up to 10 days BACTROBAN 2 % EXTERNAL CREAM 337092 MUPIROCIN CALCIUM Inactive NOVOFINE 32G X 6 MM use one four times per day NOVOFINE 32G X 6 MM INSULIN PEN NEEDLE Inactive TRAZODONE HCL 100 MG ORAL TABLET 1 tab by mouth for sleep TRAZODONE HCL 100 MG ORAL TABLET 351124 TRAZODONE HCL Inactive LOVAZA 1 GM ORAL CAPSULE 4 daily (for triglycerides) LOVAZA 1 GM ORAL CAPSULE 200068 [id number]-5-HRGV ETHYL ESTERS Inactive METFORMIN HCL ER 500 [...] bladder TOLTERODINE TARTRATE 2 MG ORAL TABLET 240845 TOLTERODINE TARTRATE Inactive COLACE 100 MG ORAL CAPSULE 1 pill by mouth twice daily, for constipation 2014 COLACE 100 MG ORAL CAPSULE 4541806 DOCUSATE SODIUM Inactive LOMOTIL 2.5-0.025 MG ORAL TABLET take 1-2 tabs PO after each stool, no more than 8 in 24 hours LOMOTIL 2.5-0.025 MG ORAL TABLET 7184884 DIPHENOXYLATE-ATROPINE Inactive ZOFRAN 4 MG ORAL TABLET 1 po q4hr PRN Nausea ZOFRAN 4 MG ORAL TABLET 654876 ONDANSETRON HCL Inactive HYDROCODONE-ACETAMINOPHEN 5-325 MG ORAL TABLET 2 tabs by mouth three times daily for pain HYDROCODONE-ACETAMINOPHEN 5-325 MG ORAL TABLET 367741 HYDROCODONE-ACETAMINOPHEN Inactive ZOLPIDEM TARTRATE 10 MG ORAL TABLET take at bedtime ZOLPIDEM TARTRATE 10 MG ORAL TABLET 720988 ZOLPIDEM TARTRATE Inactive LISINOPRIL 20 MG ORAL TABLET 1 BID LISINOPRIL 20 MG ORAL TABLET 983023 LISINOPRIL Inactive TRAVATAN Z 0.004 % OPHTHALMIC SOLUTION 1 gtt each eye daily TRAVATAN Z 0.004 % OPHTHALMIC SOLUTION TRAVOPROST Inactive LATUDA 60 MG ORAL TABLET Take one by mouth daily LATUDA 60 MG ORAL TABLET LURASIDONE HCL Inactive FLUVOXAMINE MALEATE 50 MG ORAL TABLET 1 tab by mouth daily 04/01 FLUVOXAMINE MALEATE 50 MG ORAL TABLET 603594 FLUVOXAMINE MALEATE Inactive LEVEMIR FLEXTOUCH 100 UNIT/ML [...] 30G 3 a day TRUEPLUS LANCETS 30G [id number] LANCETS Inactive AMITIZA 24 MCG ORAL CAPSULE [...] noon FLUVOXAMINE MALEATE 100 MG ORAL TABLET 267428 FLUVOXAMINE MALEATE Inactive FLONASE ALLERGY RELIEF 50 MCG/ACT NASAL SUSPENSION One spray each nostril BID x 1 week then daily FLONASE ALLERGY RELIEF 50 MCG/ACT NASAL SUSPENSION 0676714 FLUTICASONE PROPIONATE Inactive IMODIUM A-D 2 MG ORAL TABLET 1 tab QID as needed IMODIUM A-D 2 MG ORAL TABLET 359825 LOPERAMIDE HCL Inactive MYLANTA GAS RELIEF MAXIMUM STR 125 MG ORAL CAPSULE 30cc every 4 hours prn MYLANTA GAS RELIEF MAXIMUM STR 125 MG ORAL CAPSULE SIMETHICONE Inactive TRUEPLUS LANCETS 30G 3x a day TRUEPLUS LANCETS 30G [id number] LANCETS Inactive TRUE METRIX BLOOD GLUCOSE TEST [...] headaches TRAZODONE HCL 100 MG ORAL TABLET 809316 TRAZODONE HCL Inactive CEFDINIR 300 MG ORAL CAPSULE by mouth twice a day CEFDINIR 300 MG ORAL CAPSULE 088657 CEFDINIR Inactive AZITHROMYCIN 500 MG INTRAVENOUS SOLUTION RECONSTITUTED 1 po q day AZITHROMYCIN 500 MG INTRAVENOUS SOLUTION RECONSTITUTED 60847515537 AZITHROMYCIN Inactive AMOXICILLIN 500 MG ORAL CAPSULE 2 po BID x 10 days AMOXICILLIN 500 MG ORAL CAPSULE 509393 AMOXICILLIN Inactive PENICILLIN V POTASSIUM 500 MG ORAL TABLET 1 pill by mouth three times daily PENICILLIN V POTASSIUM 500 MG ORAL TABLET 732728 PENICILLIN V POTASSIUM Inactive KEFLEX 500 MG ORAL CAPSULE 1 po BID x 7 days KEFLEX 500 MG ORAL CAPSULE 074041 CEPHALEXIN Inactive Immunizations Vaccine Administration Date Value [...] Fluvirin, Fluarix, Agriflu(>=18 yo)) Fluzone (>3 yrs.) [[id number]] Influenza, seasonal, injectable pneumococcal immunization administered Pneumovax [...] Measured Encounters Code Encounter Date Provider Facility CPT-09433 Level 3 Est. Patient 09:12:14 SALES AND SUPPORT CENTER AGENT Mima Erazo [facility] CPT-32680 Level 3 Est. Patient 16:52:51 CDT Vanessa Hickey MD [facility] CPT-85631 Level 3 Est. Patient 17:40:16 CDT Mima Erazo [facility] CPT-80070 Level 3 Est. Patient 14:34:52 CDT Vanessa Hickey MD [facility]-00233 Level 3 Est. Patient 16:27:51 CDT Mima Erazo [facility]-21586 Level 3 Est. Patient 14:39:00 SALES AND SUPPORT CENTER AGENT Vanessa Hickey MD [facility]-81481 Level 2 Est. Patient 18:43:34 CDT Mima Erazo [facility] [place] CPT-49814 Level 3 Est. Patient 16:22:09 CDT Cherelle Avila [facility] CPT-00079 Level 4 Est. Patient 17:55:14 CDT Mima Erazo [facility] [place] CPT-16654 Level 2 Est. Patient 17:13:21 CDT Alina Castaneda MD [facility]-42025 Level 3 Est. Patient 14:46:15 CDT Vanessa Hickey MD [facility]-65343 Level 3 Est. Patient 09:34:56 CDT Alina Castaneda MD [facility]25993 Level 3 Est. Patient 21:40:19 CDT Mima Erazo [facility] [place] CPT-63932 Level 3 Est. Patient 09:26:40 CDT Marvel Charles [facility]-77404 Level 3 Est. Patient 12:36:43 CDT Vanessa Hickey MD [facility]-78852 Level 3 Est. Patient 12:57:49 CDT Vanessa Hickey MD [facility]97968 Level 3 Est. Patient 00:28:25 CDT Alina Castaneda MD PhD [facility]77784 Level 2 Est. Patient 12:52:14 CDT Alina Castaneda MD PhD [facility] CPT-81114 Level 3 Est. Patient 11:51:18 SALES AND SUPPORT CENTER AGENT Alina Castaneda MD [facility]-91908 Level 3 Est. Patient 10:09:22 SALES AND SUPPORT CENTER AGENT Alina Castaneda MD [facility]82710 Level 3 Est. Patient 14:36:26 SALES AND SUPPORT CENTER AGENT [facility]-49414 Level 3 Est. Patient 13:34:47 SALES AND SUPPORT CENTER AGENT Alina Castaneda MD [facility]66177 Level 3 Est. Patient 19:52:08 SALES AND SUPPORT CENTER AGENT Alina Castaneda MD [facility]-95202 Level 3 Est. Patient 10:01:51 SALES AND SUPPORT CENTER AGENT [facility]-71056 Level 3 Est. Patient 21:54:06 CDT Vanessa Hickey MD [facility]-47430 Level 3 Est. Patient 08:54:46 CDT Alina Castaneda MD [facility]-20024 Level 3 Est. Patient 09:32:11 CDT Marvel Charles [facility]-26500 Level 3 Est. Patient 12:02:49 CDT Alina Castaneda MD [facility]-23426 Level 3 Est. Patient 19:17:33 CDT Alina Castaneda MD [facility]45626 Level 3 Est. Patient 13:19:10 CDT Marvel Charles [facility]-35895 Level 3 Est. Patient 08:20:05 CDT Alina Castaneda MD [facility]09953 Level 3 Est. Patient 15:17:18 CDT Alina Castaneda MD [facility]89877 Level 3 Est. Patient 14:25:36 SAL[employer] AND SUPPORT CENTER AGENT Marvel Charles [facility]-38471 Level 3 Est. Patient 10:09:15 SALES AND SUPPORT CENTER AGENT Marvel Charles [facility]-47577 Level 3 Est. Patient 21:28:43 CDT Alina Castaneda MD [facility]-37179 Level 3 Est. Patient 15:20:11 CDT Marvel Charlse [facility]-66966 Level 4 Est. Patient 19:08:12 CDT Alina Castaneda MD [facility]-58994 Level 3 Est. Patient 15:06:39 CDT Marvel Charles [facility]-21184 Level 4 Est. Patient 17:48:15 CDT Alina Castaneda MD [facility]-56469 Level 3 Est. Patient 14:53:49 CDT Alina Castaneda MD [facility]-87816 Level 3 Est. Patient 09:35:16 CDT Alina Castaneda MD [facility]-69210 Level 3 Est. Patient 12:23:22 CDT Alina Castaneda MD [facility]-88997 Level 3 Est. Patient 16:19:15 CDT Alina Castaneda MD [facility]-26301 Level 3 Est. Patient 21:39:56 [employer] SUPPORT C[employer] AGENT Alina Castaneda MD [facility]-08823 Level 4 Est. Patient 14:12:56 SAL[employer] AND SUPPORT CENTER AGENT Alina Castaneda MD [facility]-90491 Level 2 Est. Patient 15:34:57 SALES AND SUPPORT CENTER AGENT Alina Castaneda MD [facility]-47821 Level 3 Est. Patient 12:17:04 SAL[employer] AND SUPPORT CENTER AGENT Alina Castaneda MD [facility]-47971 Level 3 Est. Patient 09:18:18 SALES AND SUPPORT CENTER AGENT [facility] Araceli [facility]-12379 Level 2 Est. Patient 21:50:24 CDT Alina Castaneda MD [facility]81119 Level 3 Est. Patient 09:17:28 CDT Brooksjohn Charles [facility]-29574 Level 4 Est. Patient 18:54:02 CDT Alina Castaneda MD [facility]74637 Level 3 Est. Patient 10:47:10 CDT Alina Castaneda MD [facility]-55019 Level 3 Est. Patient 09:22:20 CDT Marvel Araceli [facility]-62190 Level 3 Est. Patient 16:39:43 CDT Marvel Araceli [facility]-47449 Level 3 Est. Patient 16:05:16 CDT Alina Castaneda MD [facility]-80055 Level 3 Est. Patient 00:29:15 CDT Alina Castaneda MD [facility]-70909 Level 3 Est. Patient 10:49:22 SALES AND SUPPORT CENTER AGENT [facility] Araceli [facility]-62388 Level 3 Est. Patient 21:30:19 SAL[employer] AND SUPPORT CENTER AGENT Alina Castaneda MD [facility]73392 Level 4 Est. Patient 17:04:11 SALES AND SUPPORT CENTER AGENT Brooksjohn Charles [facility]-01775 Level 3 Est. Patient 15:34:11 SALES AND SUPPORT CENTER AGENT [facility] Araceli [facility]-05971 Level 2 Est. Patient 12:51:58 SAL[employer] SUPPORT CENTER AGENT Alina Castaneda MD PhD [facility] CPT-36892 Level 3 Est. Patient 13:20:01 SAL[employer] SUPPORT CENTER AGENT Alina Castaneda MD PhD [facility] CPT-08689 Level 3 Est. Patient 09:23:35 CDT Alina Castaneda MD PhD [facility] Procedures Code Procedure Name Date Entry Date Standard Description CPT-13575 Level 2 Intermediate 09:01:11 CDT CPT-51967 HGBA1C - LAB USE ONLY 09:30:27 [employer] AND [employer]PPORT CENTER AGENT CPT-87381 BMP - LAB USE ONLY 09:30:27 [employer] AGENT CPT-27806 Venipuncture Draw Fee 09:30:26 SAL[employer] AND SUPPORT CENTER AGENT CPT-TCMM Transitional Care Mgmt-Moderate 10:25:31 CDT CPT-46184 Bladder Scan 14:34:53 CDT CPT-08065 Bladder Scan 14:39:01 SAL[employer] AND SUPPORT CENTER AGENT CPT-TCMM Transitional Care Mgmt-Moderate 10:30:19 SAL[employer] AND SUPPORT CENTER AGENT CPT-44967 Bladder Scan 12:36:44 CDT CPT-23232 Bladder Scan 21:54:06 CDT CPT-G0008 Administration of Influenza Virus Vaccine 13:05:26 CDT CPT-63765 Fluzone Quadrivalent Intramuscular Suspension 0.5 ML 13: 05:26 CDT CPT-98146 Administration single or combination vaccine inc oral 11 :49:51 CDT CPT-57874 Pneumovax 11:49:51 CDT CPT-30247 Ribs unilateral 2V 12:37:22 [employer] AGENT CPT-94818 Chest 2V Frontal and Lat 17:15:26 CDT CPT-87321 Abx/Therapy Injection 18:54:02 CDT CPT-J0696 Rocephin 1000 mg (Ceftriaxone) 16:00:32 CDT CPT-42107 Chest 2V Frontal and Lat 15:26:45 CDT CPT-93838 Chest 2V Frontal and Lat 10:23:27 CDT CPT-97396 Venipuncture Draw Fee 10:11:00 CDT CPT-79136 Administration single or combination vaccine inc oral 11 :56:38 CDT CPT-07233 Influenza split virus > age 3 11:56:38 CDT CPT-61233 Venipuncture Draw Fee 08:49:54 [employer] AGENT CPT-08497 EKG Trac and Interp 17:54:19 SAL[employer] AND SUPPORT CENTER AGENT
--- OUTSIDE RECORDS SUMMARY | 2018-07-02 13:14 | XMS REPORT | Clinical Summary ---
Author Author Admin, TERELL Organization [facility] [employer] Address Unknown Phone Unavailable Allergies, Adverse Reactions, [...] Unspecified chest pain ANEMIA 285.9 Active Alina aCstaneda MD PhD Anemia, unspecified REACTIVE AIRWAY DISEASE [...] mellitus, type II 250.00 Active Marvel Thurstonari RESIDENT SERVICES COORDINATOR Diabetes mellitus without mention of complication, type [...] Instructions Start Date Stop Date Generic Name [facility] Status Provider Patient Instruction TOPAMAX 25 MG ORAL TABLET 1 tab BID PRN TOPIRAMATE 38634794186 Active Mason Loredo MD Active TIMOPTIC OCUDOSE 0.5 % OPHTHALMIC SOLUTION instill one drop into both eyes q12H TIMOLOL MALEATE 69392957843 Active Mason Loredo MD Active TRAZODONE HCL 100 MG ORAL TABLET 1 every night to prevent headaches TRAZODONE HCL 68009624937 No Longer Active Mason Loredo MD Active TRAVATAN Z 0.004 % OPHTHALMIC SOLUTION 1 drop each eye daily 2017 TRAVOPROST 13678597603 No Longer Active Mason Loredo MD Active LATUDA 60 MG ORAL TABLET 1 tab daily LURASIDONE HCL 44041019048 No Longer Active Mason Loredo MD Active MORPHINE SULFATE ER 30 MG ORAL TABLET EXTENDED RELEASE Take one capsule BID MORPHINE SULFATE 55955705036 No Longer Active Mason Loredo MD Active TRUE METRIX BLOOD GLUCOSE TEST IN VITRO STRIP Check blood sugars 3x/day. 2015 GLUCOSE BLOOD 79618348525 No Longer Active Mason Loredo MD Active TRUEPLUS LANCETS 30G 3x a day LANCETS 54788551536 No Longer Active Mason Loredo MD Active MYLANTA GAS RELIEF MAXIMUM STR 125 MG ORAL CAPSULE 30cc every 4 hours prn SIMETHICONE 28612312114 No Longer Active Mason Loredo MD Active IMODIUM A-D 2 MG ORAL TABLET 1 tab QID as needed LOPERAMIDE HCL 87502914600 No Longer Active Mason Loredo MD Active FLONASE ALLERGY RELIEF 50 MCG/ACT NASAL SUSPENSION One spray each nostril BID x 1 week then daily FLUTICASONE PROPIONATE 83917967934 No Longer Active Mason Loredo MD Active FLUVOXAMINE MALEATE 100 MG ORAL TABLET take one tab every AM et HS, and take 1 /2 tab at noon FLUVOXAMINE MALEATE 29754365769 No Longer Active Mason Loredo MD Active BD PEN NEEDLE MINI U/F 31G X 5 MM 4 a day INSULIN PEN NEEDLE 72431915942 No Longer Active Mason Loredo MD Active AMITIZA 24 MCG ORAL CAPSULE Take one capsule BID for constipation LUBIPROSTONE 57843239063 No Longer Active Mason Loredo MD Active TRUEPLUS LANCETS 30G 3 a day LANCETS 93158417620 No Longer Active Mason Loredo MD Active CORICIDIN HBP CONGESTION/COUGH 10-200 MG ORAL CAPSULE Take as directed on box as needed for cold/flu symptoms DEXTROMETHORPHAN- GUAIFENESIN 76344321488 No Longer Active Mason Loredo MD Active OMEGA-3 300 MG ORAL CAPSULE 4 caps by mouth daily OMEGA-3 FATTY ACIDS 30968001971 No Longer Active Mason Loredo MD Active HUMALOG KWIKPEN 100 UNIT/ML SUBCUTANEOUS SOLUTION PEN-INJECTOR sliding scale if needed INSULIN LISPRO (HUMAN) 91575947413 No Longer Active Mason Loredo MD Active TRUETEST TEST IN VITRO STRIP check blood sugars 3x/day GLUCOSE BLOOD 41568305075 No Longer Active Mason Loredo MD Active ALFUZOSIN HCL ER 10 MG ORAL TABLET EXTENDED RELEASE 24 HOUR 1 tablet daily ALFUZOSIN HCL 34799817368 No Longer Active Mason Loredo MD Active BD INSULIN SYRINGE 28G X 1/2" 1 ML 1 four times per day INSULIN SYRINGE-NEEDLE U-100 45259570876 No Longer Active Mason Lordeo MD Active LEVEMIR FLEXTOUCH 100 UNIT/ML SUBCUTANEOUS SOLUTION PEN-INJECTOR 60 units SQ each evening, for diabetes INSULIN DETEMIR 05951508154 No Longer Active Mason Loredo MD Active METFORMIN HCL ER (MOD) 500 MG ORAL TABLET EXTENDED RELEASE 24 HOUR give two tabs PO BID METFORMIN HCL 32651076598 Active Mason Loredo MD Active LACTULOSE 20 GM/30ML ORAL SOLUTION give 30 Ml PO BID PRN LACTULOSE 63150299191 Active Mason Loredo MD Active COLACE 100 MG ORAL CAPSULE 1 tab BID PRN DOCUSATE SODIUM 31975198953 Active Mason Loredo MD Active TAMSULOSIN HCL 0.4 MG ORAL CAPSULE give 2 capsules PO each evening TAMSULOSIN HCL 72001522942 Active Mason Loredo MD Active [facility] MELATONIN 3 MG ORAL TABLET give 1 tab by mouth at HS MELATONIN 29857008479 Active Mason Loredo MD Active LATANOPROST 0.005 % OPHTHALMIC SOLUTION instill 1 drop in both eyes at bed time LATANOPROST 42090145824 Active Mason Loredo MD Active AMARYL 2 MG ORAL TABLET give 2.5 tabs PO daily GLIMEPIRIDE 54626328646 Active Mason Loredo MD Active MIRALAX ORAL POWDER 17g by mouth q12h, for constipation POLYETHYLENE GLYCOL 3350 41898568012 Active Mason Loredo MD Active IBUPROFEN 400 MG ORAL TABLET 1 tab Q6H PRN IBUPROFEN 19947074086 Active Mason Loredo MD Active EFFEXOR XR 37.5 MG ORAL CAPSULE EXTENDED RELEASE 24 HOUR Take one by mouth daily VENLAFAXINE HCL 61294558642 Active Mima Erazo APRN Active FLUVOXAMINE MALEATE 50 MG ORAL TABLET 1 tab by mouth daily 04/01 FLUVOXAMINE MALEATE 37303409029 No Longer Active Mima Erazo APRN Active TRUE METRIX METER w/Device KIT Check blood sugars 3x/day BLOOD GLUCOSE MONITORING SUPPL 00603820816 Active Marvel MARROQUIN Active VITAMIN D 2000 UNIT ORAL CAPSULE Take one by mouth daily CHOLECALCIFEROL 41389685719 Active Mima Erazo APRN Active LATUDA 60 MG ORAL TABLET Take one by mouth daily LURASIDONE HCL 60239911841 No Longer Active Mima Erazo APRN Active CLONAZEPAM 1 MG ORAL TABLET 1 pill by mouth three times daily CLONAZEPAM 47414715895 Active Gabrielle Marquez MA Active [facility] MILK OF MAGNESIA 400 MG/5ML ORAL SUSPENSION 30ml by mouth bid prn MAGNESIUM HYDROXIDE 83382778328 Active Mason Loredo MD Active TYLENOL 8 HOUR 650 MG ORAL TABLET EXTENDED RELEASE 1 tab QID prn ACETAMINOPHEN 70977513216 Active Mason Loredo MD Active TRAVATAN Z 0.004 % OPHTHALMIC SOLUTION 1 gtt each eye daily TRAVOPROST 77001341527 No Longer Active Mason Loredo MD Active LISINOPRIL 20 MG ORAL TABLET 1 BID LISINOPRIL 84559466717 No Longer Active Mason Loredo MD Active ZOLPIDEM TARTRATE 10 MG ORAL TABLET take at bedtime ZOLPIDEM TARTRATE 64883929448 No Longer Active Mason Loredo MD Active HYDROCODONE-ACETAMINOPHEN 5-325 MG ORAL TABLET 2 tabs by mouth three times daily for pain HYDROCODONE-ACETAMINOPHEN 83250929082 No Longer Active Mason Loredo MD Active ZOFRAN 4 MG ORAL TABLET 1 po q4hr PRN Nausea ONDANSETRON HCL 04338352111 No Longer Active Mason Loredo MD Active LOMOTIL 2.5-0.025 MG ORAL TABLET take 1-2 tabs PO after each stool, no more than 8 in 24 hours DIPHENOXYLATE-ATROPINE 81031927409 No Longer Active Mason Loredo MD Active COLACE 100 MG ORAL CAPSULE 1 pill by mouth twice daily, for constipation 2014 DOCUSATE SODIUM 57296967567 No Longer Active Mima Erazo APRN Active TOLTERODINE TARTRATE 2 MG ORAL TABLET 1 pill twice daily, for bladder TOLTERODINE TARTRATE 37073794100 No Longer Active Vanessa Hickey MD Active AMITIZA 24 MCG ORAL CAPSULE Take one capsule BID for constipation. LUBIPROSTONE 99664573255 No Longer Active Vanessa Hickey MD Active METOPROLOL SUCCINATE ER 100 MG ORAL TABLET EXTENDED RELEASE 24 HOUR 1 by mouth daily for blood pressure METOPROLOL SUCCINATE 79547636619 No Longer Active Grace ROJAS Active METFORMIN HCL ER 500 MG ORAL TABLET EXTENDED RELEASE 24 HOUR Take three tablets by mouth everyday METFORMIN HCL 96267722396 No Longer Active Grace ROJAS Active LOVAZA 1 GM ORAL CAPSULE 4 daily (for triglycerides) [id number] ETHYL ESTERS 82057135538 No Longer Active Grace Nascimento RMA Active TRAZODONE HCL 100 MG ORAL TABLET 1 tab by mouth for sleep TRAZODONE HCL 51414277859 No Longer Active Grace Nascimento RMA Active NOVOFINE 32G X 6 MM use one four times per day INSULIN PEN NEEDLE 88397133755 No Longer Active Grace Nascimento RMAriela Active BACTROBAN 2 % EXTERNAL CREAM Apply to affected area BID for up to 10 days MUPIROCIN CALCIUM 90522685610 No Longer Active Grace ROJAS Active KEFLEX 500 MG ORAL CAPSULE 1 po BID x 7 days CEPHALEXIN 04554603555 No Longer Active Cherelle Avila APRN Active FLUVOXAMINE MALEATE 100 MG ORAL TABLET Take one (1) tablet by mouth am, 1/2 at noon FLUVOXAMINE MALEATE 31034630949 No Longer Active Mima Erazo APRN Active FLUVOXAMINE MALEATE 100 MG ORAL TABLET Take 1/2 tab at noon 03/04 FLUVOXAMINE MALEATE 85349525195 No Longer Active Cherelle Avila APRN Active [facility] LUBRICANT EYE DROPS 0.4-0.3 % OPHTHALMIC SOLUTION POLYETHYL GLYCOL-PROPYL GLYCOL 21304696221 Active Mima Erazo APRN Active ACCU-CHEK ROSA DEVICE Use device to check blood sugars BLOOD GLUCOSE MONITORING SUPPL 67169149123 No Longer Active Marvel MARROQUIN Active ACCU-CHEK ROSA IN VITRO STRIP use strips with device to check blood sugars 3 times daily GLUCOSE BLOOD 86411332920 No Longer Active Maljohn MENDOZAP Active VERAPAMIL HCL ER 180 MG ORAL TABLET EXTENDED RELEASE 1 pill by mouth twice daily, for migraine prevention VERAPAMIL HCL 33220164597 Active Mima Erazo APRN Active CYCLOBENZAPRINE HCL 10 MG ORAL TABLET 1 tablet by mouth three times daily, scheduled CYCLOBENZAPRINE HCL 77520296233 No Longer Active Alina Castaneda MD PhD Active HUMALOG 100 UNIT/ML SUBCUTANEOUS SOLUTION Take 20 units with breakfast, 10u with lunch and suppetr. INSULIN LISPRO (HUMAN) 92044339202 No Longer Active Alina Castaneda MD PhD Active TRUETEST TEST IN VITRO STRIP check sugars 4x/day GLUCOSE BLOOD 72219020335 No Longer Active Alina Castaneda MD PhD Active MORPHINE SULFATE 30 MG ORAL TABLET 1 pill by mouth twice daily, for pain 2013 MORPHINE SULFATE 78810298515 No Longer Active Mason Loredo MD Active ACYCLOVIR 400 MG ORAL TABLET 1 pill three times daily x 5 days, for cold sore outbreak ACYCLOVIR 84515661744 No Longer Active Alina Castaneda MD PhD Active PENICILLIN V POTASSIUM 500 MG ORAL TABLET 1 pill by mouth three times daily PENICILLIN V POTASSIUM 66532971347 No Longer Active Alina Castaneda MD PhD Active UROXATRAL 10 MG ORAL TABLET EXTENDED RELEASE 24 HOUR Take 1 tablet by mouth daily ALFUZOSIN HCL 18813531349 No Longer Active Alina Castaneda MD PhD Active THIOTHIXENE 5 MG ORAL CAPSULE by mouth twice a day THIOTHIXENE 17880001977 No Longer Active Alina Castaneda MD PhD Active ZYPREXA 7.5 MG ORAL TABLET 1 at HS OLANZAPINE 35228054865 No Longer Active Alina Castaneda MD PhD Active DETROL LA 4 MG ORAL CAPSULE EXTENDED RELEASE 24 HOUR Take 1 tablet by mouth daily TOLTERODINE TARTRATE 50544501577 No Longer Active Alina Castaneda MD PhD Active TERESE CONTOUR TEST IN VITRO STRIP monitor blood sugars 3x/day GLUCOSE BLOOD 09692341165 No Longer Active Alina Castaneda MD PhD Active EQL TRUETEST TEST IN VITRO STRIP Test blood sugar TID GLUCOSE BLOOD 70580086321 No Longer Active Alina Castaneda MD PhD Active FLUTICASONE PROPIONATE 50 MCG/ACT NASAL SUSPENSION 2 sprays each nostril qDay x 30 days FLUTICASONE PROPIONATE 27018874814 No Longer Active Alina Castaneda MD PhD Active IBUPROFEN 200 MG ORAL TABLET 1 Q 6 hr. PRN IBUPROFEN 39599058632 No Longer Active Alina Castaneda MD PhD Active NIACIN ER 500 MG ORAL TABLET EXTENDED RELEASE 4 qHS (for triglycerides) 01/13 NIACIN 64655201877 No Longer Active Alina Castaneda MD PhD Active SAPHRIS 5 MG SUBLINGUAL TABLET SUBLINGUAL by mouth twice a day ASENAPINE MALEATE 83754961335 No Longer Active Maljohn MARROQUIN Active ACETAMINOPHEN 500 MG ORAL TABLET 2 Q 6 hr. PRN ACETAMINOPHEN 31970436123 No Longer Active Marvel MARROQUIN Active ORPHENADRINE CITRATE ER 100 MG ORAL TABLET EXTENDED RELEASE 12 HOUR 1 every 12 hr. as needed ORPHENADRINE CITRATE 95684929451 No Longer Active Alina Castaneda MD PhD Active NIACIN ER 500 MG ORAL TABLET EXTENDED RELEASE 2 qHS NIACIN 32466868339 No Longer Active Alina Castaneda MD PhD Active AMOXICILLIN 500 MG ORAL CAPSULE 2 po BID x 10 days AMOXICILLIN 90068036779 No Longer Active Alina Castaneda MD PhD Active HYDROCODONE-ACETAMINOPHEN 7.5-325 MG ORAL TABLET 1 four times a day as needed for pain HYDROCODONE-ACETAMINOPHEN 87303517487 No Longer Active Alina Castaneda MD PhD Active DOXEPIN HCL 10 MG ORAL CAPSULE Take 1 tablet by mouth daily DOXEPIN HCL 29521307850 No Longer Active Salina ROBBINSA Active NAVANE 10 MG CAPS 1/2 tablet twice a day THIOTHIXENE No Longer Active Salina ROBBINSA Active CYCLOBENZAPRINE HCL 10 MG ORAL TABLET 1/2 tablet by mouth every 8 hours as needed for muscle spasms CYCLOBENZAPRINE HCL 88407918634 No Longer Active Alina Castaneda MD PhD Active BACTROBAN 2 % EXTERNAL CREAM apply to ear and nose twice daily MUPIROCIN CALCIUM 64061684665 No Longer Active Alina Castaneda MD PhD Active HYDROCODONE-ACETAMINOPHEN 5-325 MG ORAL TABLET take one tablet by mouth every four hours as needed for pain HYDROCODONE-ACETAMINOPHEN 32745412082 No Longer Active Alina Castaneda MD PhD Active ZYPREXA 5 MG ORAL TABLET take one tablet by mouth every evening OLANZAPINE 70722191412 No Longer Active Alina Castaneda MD PhD Active ALBUTEROL SULFATE (2.5 MG/3ML) 0.083% INHALATION NEBULIZATION SOLUTION one vial per nebulizer TID and PRN cough/soa ALBUTEROL SULFATE 61958288059 No Longer Active Alina Castaneda MD PhD Active GUAIFENESIN ER 600 MG ORAL TABLET EXTENDED RELEASE 12 HOUR 1 tablet by mouth twice daily if needed for cough GUAIFENESIN 24880936402 No Longer Active Marvel MARROQUIN Active AZITHROMYCIN 500 MG INTRAVENOUS SOLUTION RECONSTITUTED 1 po q day AZITHROMYCIN 06442840756 No Longer Active Alina Castaneda MD PhD Active PROMETHAZINE-CODEINE 6.25-10 MG/5ML ORAL SYRUP 1 tsp po q 6 hours prn cough PROMETHAZINE-CODEINE 14553212020 No Longer Active Alina Castaneda MD PhD Active CEFDINIR 300 MG ORAL CAPSULE by mouth twice a day CEFDINIR 70129558029 No Longer Active Alina Castaneda MD PhD Active METFORMIN HCL ER 500 MG ORAL TABLET EXTENDED RELEASE 24 HOUR Take 3 tablets by mouth everyday METFORMIN HCL 91054727009 No Longer Active Alina Castaneda MD PhD Active LEVEMIR 100 UNIT/ML SUBCUTANEOUS SOLUTION 90 units SQ qHS INSULIN DETEMIR 70177524304 No Longer Active Marvel MARROQUIN Active TOPROL XL 100 MG ORAL TABLET EXTENDED RELEASE 24 HOUR 1 @ HS METOPROLOL SUCCINATE 45060631106 No Longer Active Marvel MARROQUIN Active ALLOPURINOL 300 MG ORAL TABLET Take one by mouth daily ALLOPURINOL 28470682431 Active Mima Erazo APRN Active ZYPREXA 10 MG ORAL TABLET Take one by mouth daily OLANZAPINE 89397936232 No Longer Active Alina Castaneda MD PhD Active NOVOLOG 100 UNIT/ML SUBCUTANEOUS SOLUTION 40 units with every meal INSULIN ASPART 21608553644 No Longer Active Alina Castaneda MD PhD Active VERAPAMIL HCL ER 120 MG ORAL TABLET EXTENDED RELEASE 1 qPM 09/08 VERAPAMIL HCL 19161662110 No Longer Active Salina ROJAS Active ZYPREXA 15 MG ORAL TABLET Take 1 tablet by mouth daily OLANZAPINE 31994552257 No Longer Active Marvel MARROQUIN Active ALBUTEROL SULFATE (2.5 MG/3ML) 0.083% INHALATION NEBULIZATION SOLUTION 1 neb tid and prn cough ALBUTEROL SULFATE 67930164810 No Longer Active Alina Castaneda MD PhD Active LANTUS 100 UNIT/ML SUBCUTANEOUS SOLUTION 60 units sq q hs INSULIN GLARGINE 53387809202 No Longer Active CRYSTAL Suarez Active ALBUTEROL SULFATE (2.5 MG/3ML) 0.083% INHALATION NEBULIZATION SOLUTION 1 neb tid and prn cough ALBUTEROL SULFATE (2.5 MG/3ML) 0.083% INHALATION NEBULIZATION SOLUTION 261747 ALBUTEROL SULFATE Inactive ZYPREXA 15 MG ORAL TABLET Take 1 tablet by mouth daily ZYPREXA 15 MG ORAL TABLET 392969 OLANZAPINE Inactive VERAPAMIL HCL ER 120 MG ORAL TABLET EXTENDED RELEASE 1 qPM 09/08 VERAPAMIL HCL ER 120 MG ORAL TABLET EXTENDED RELEASE VERAPAMIL HCL Inactive ZYPREXA 10 MG ORAL TABLET Take one by mouth daily ZYPREXA 10 MG ORAL TABLET 253460 OLANZAPINE Inactive TOPROL XL 100 MG ORAL TABLET EXTENDED RELEASE 24 HOUR 1 @ HS TOPROL XL 100 MG ORAL TABLET EXTENDED RELEASE 24 HOUR METOPROLOL SUCCINATE Inactive LEVEMIR 100 UNIT/ML SUBCUTANEOUS SOLUTION 90 units SQ qHS LEVEMIR 100 UNIT/ML SUBCUTANEOUS SOLUTION INSULIN DETEMIR Inactive PROMETHAZINE-CODEINE 6.25-10 MG/5ML ORAL SYRUP 1 tsp po q 6 hours prn cough PROMETHAZINE-CODEINE 6.25-10 MG/5ML ORAL SYRUP 916572 PROMETHAZINE-CODEINE Inactive GUAIFENESIN ER 600 MG ORAL TABLET EXTENDED RELEASE 12 HOUR 1 tablet by mouth twice daily if needed for cough GUAIFENESIN ER 600 MG ORAL TABLET EXTENDED RELEASE 12 HOUR GUAIFENESIN Inactive ALBUTEROL SULFATE (2.5 MG/3ML) 0.083% INHALATION NEBULIZATION SOLUTION one vial per nebulizer TID and PRN cough/soa ALBUTEROL SULFATE (2.5 MG/3ML) 0.083% INHALATION NEBULIZATION SOLUTION 849759 ALBUTEROL SULFATE Inactive ZYPREXA 5 MG ORAL TABLET take one tablet by mouth every evening ZYPREXA 5 MG ORAL TABLET 102161 OLANZAPINE Inactive HYDROCODONE-ACETAMINOPHEN 5-325 MG ORAL TABLET take one tablet by mouth every four hours as needed for pain HYDROCODONE-ACETAMINOPHEN 5-325 MG ORAL TABLET 633434 HYDROCODONE-ACETAMINOPHEN Inactive BACTROBAN 2 % EXTERNAL CREAM apply to ear and nose twice daily BACTROBAN 2 % EXTERNAL CREAM 511589 MUPIROCIN CALCIUM Inactive CYCLOBENZAPRINE HCL 10 MG ORAL TABLET 1/2 tablet by mouth every 8 hours as needed for muscle spasms CYCLOBENZAPRINE HCL 10 MG ORAL TABLET 595584 CYCLOBENZAPRINE HCL Inactive NAVANE 10 MG CAPS 1/2 tablet twice a day NAVANE 10 MG CAPS THIOTHIXENE Inactive DOXEPIN HCL 10 MG ORAL CAPSULE Take 1 tablet by mouth daily DOXEPIN HCL 10 MG ORAL CAPSULE 5508135 DOXEPIN HCL Inactive HYDROCODONE-ACETAMINOPHEN 7.5-325 MG ORAL TABLET 1 four times a day as needed for pain HYDROCODONE-ACETAMINOPHEN 7.5-325 MG ORAL TABLET 758058 HYDROCODONE-ACETAMINOPHEN Inactive NIACIN ER 500 MG ORAL [...] hr. PRN ACETAMINOPHEN 500 MG ORAL TABLET 795523 ACETAMINOPHEN Inactive SAPHRIS 5 MG SUBLINGUAL TABLET SUBLINGUAL by mouth twice a day SAPHRIS 5 MG SUBLINGUAL TABLET SUBLINGUAL ASENAPINE MALEATE Inactive NIACIN ER 500 MG ORAL TABLET EXTENDED RELEASE 4 qHS (for triglycerides) 01/13 NIACIN ER 500 MG ORAL TABLET EXTENDED RELEASE NIACIN Inactive IBUPROFEN 200 MG ORAL TABLET 1 Q 6 hr. PRN IBUPROFEN 200 MG ORAL TABLET 283044 IBUPROFEN Inactive FLUTICASONE PROPIONATE 50 MCG/ACT NASAL SUSPENSION 2 sprays each nostril qDay x 30 days FLUTICASONE PROPIONATE 50 MCG/ACT NASAL SUSPENSION 3981827 FLUTICASONE PROPIONATE Inactive EQL TRUETEST TEST IN [...] at HS ZYPREXA 7.5 MG ORAL TABLET 414029 OLANZAPINE Inactive THIOTHIXENE 5 MG ORAL CAPSULE by mouth twice a day THIOTHIXENE 5 MG ORAL CAPSULE 550615 THIOTHIXENE Inactive UROXATRAL 10 MG ORAL TABLET EXTENDED RELEASE 24 HOUR Take 1 tablet by mouth daily UROXATRAL 10 MG ORAL TABLET EXTENDED RELEASE 24 HOUR ALFUZOSIN HCL Inactive ACYCLOVIR 400 MG ORAL TABLET 1 pill three times daily x 5 days, for cold sore outbreak ACYCLOVIR 400 MG ORAL TABLET 958917 ACYCLOVIR Inactive TRUETEST TEST IN VITRO STRIP check sugars 4x/day TRUETEST TEST IN VITRO STRIP GLUCOSE BLOOD Inactive HUMALOG 100 UNIT/ML SUBCUTANEOUS SOLUTION Take 20 units with breakfast, 10u with lunch and suppetr. HUMALOG 100 UNIT/ML SUBCUTANEOUS SOLUTION INSULIN LISPRO (HUMAN) Inactive CYCLOBENZAPRINE HCL 10 MG ORAL TABLET 1 tablet by mouth three times daily, scheduled CYCLOBENZAPRINE HCL 10 MG ORAL TABLET 206919 CYCLOBENZAPRINE HCL Inactive ACCU-CHEK ROSA IN VITRO STRIP use strips with device to check blood sugars 3 times daily ACCU-CHEK ROSA IN VITRO STRIP GLUCOSE BLOOD Inactive ACCU-CHEK ROSA DEVICE Use device to check blood sugars ACCU-CHEK ROSA DEVICE BLOOD GLUCOSE MONITORING SUPPL Inactive FLUVOXAMINE MALEATE 100 MG ORAL TABLET Take 1/2 tab at noon 03/04 FLUVOXAMINE MALEATE 100 MG ORAL TABLET 425427 FLUVOXAMINE MALEATE Inactive FLUVOXAMINE MALEATE 100 MG ORAL TABLET Take one (1) tablet by mouth am, 1/2 at noon FLUVOXAMINE MALEATE 100 MG ORAL TABLET 016041 FLUVOXAMINE MALEATE Inactive BACTROBAN 2 % EXTERNAL CREAM Apply to affected area BID for up to 10 days BACTROBAN 2 % EXTERNAL CREAM 674062 MUPIROCIN CALCIUM Inactive NOVOFINE 32G X 6 MM use one four times per day NOVOFINE 32G X 6 MM INSULIN PEN NEEDLE Inactive TRAZODONE HCL 100 MG ORAL TABLET 1 tab by mouth for sleep TRAZODONE HCL 100 MG ORAL TABLET 349463 TRAZODONE HCL Inactive LOVAZA 1 GM ORAL CAPSULE 4 daily (for triglycerides) LOVAZA 1 GM ORAL CAPSULE 172319 [id number] ETHYL ESTERS Inactive METFORMIN HCL ER 500 [...] bladder TOLTERODINE TARTRATE 2 MG ORAL TABLET 227827 TOLTERODINE TARTRATE Inactive COLACE 100 MG ORAL CAPSULE 1 pill by mouth twice daily, for constipation 2014 COLACE 100 MG ORAL CAPSULE 0968059 DOCUSATE SODIUM Inactive LOMOTIL 2.5-0.025 MG ORAL TABLET take 1-2 tabs PO after each stool, no more than 8 in 24 hours LOMOTIL 2.5-0.025 MG ORAL TABLET 4653160 DIPHENOXYLATE-ATROPINE Inactive ZOFRAN 4 MG ORAL TABLET 1 po q4hr PRN Nausea ZOFRAN 4 MG ORAL TABLET 371502 ONDANSETRON HCL Inactive HYDROCODONE-ACETAMINOPHEN 5-325 MG ORAL TABLET 2 tabs by mouth three times daily for pain HYDROCODONE-ACETAMINOPHEN 5-325 MG ORAL TABLET 248098 HYDROCODONE-ACETAMINOPHEN Inactive ZOLPIDEM TARTRATE 10 MG ORAL TABLET take at bedtime ZOLPIDEM TARTRATE 10 MG ORAL TABLET 305837 ZOLPIDEM TARTRATE Inactive LISINOPRIL 20 MG ORAL TABLET 1 BID LISINOPRIL 20 MG ORAL TABLET 657890 LISINOPRIL Inactive TRAVATAN Z 0.004 % OPHTHALMIC SOLUTION 1 gtt each eye daily TRAVATAN Z 0.004 % OPHTHALMIC SOLUTION TRAVOPROST Inactive LATUDA 60 MG ORAL TABLET Take one by mouth daily LATUDA 60 MG ORAL TABLET LURASIDONE HCL Inactive FLUVOXAMINE MALEATE 50 MG ORAL TABLET 1 tab by mouth daily 04/01 FLUVOXAMINE MALEATE 50 MG ORAL TABLET 304571 FLUVOXAMINE MALEATE Inactive LEVEMIR FLEXTOUCH 100 UNIT/ML [...] 30G 3 a day TRUEPLUS LANCETS 30G 51505225037 LANCETS Inactive AMITIZA 24 MCG ORAL CAPSULE [...] noon FLUVOXAMINE MALEATE 100 MG ORAL TABLET 160490 FLUVOXAMINE MALEATE Inactive FLONASE ALLERGY RELIEF 50 MCG/ACT NASAL SUSPENSION One spray each nostril BID x 1 week then daily FLONASE ALLERGY RELIEF 50 MCG/ACT NASAL SUSPENSION 3878504 FLUTICASONE PROPIONATE Inactive IMODIUM A-D 2 MG ORAL TABLET 1 tab QID as needed IMODIUM A-D 2 MG ORAL TABLET 695481 LOPERAMIDE HCL Inactive MYLANTA GAS RELIEF MAXIMUM STR 125 MG ORAL CAPSULE 30cc every 4 hours prn MYLANTA GAS RELIEF MAXIMUM STR 125 MG ORAL CAPSULE SIMETHICONE Inactive TRUEPLUS LANCETS 30G 3x a day TRUEPLUS LANCETS 30G 13719174054 LANCETS Inactive TRUE METRIX BLOOD GLUCOSE TEST [...] headaches TRAZODONE HCL 100 MG ORAL TABLET 737575 TRAZODONE HCL Inactive CEFDINIR 300 MG ORAL CAPSULE by mouth twice a day CEFDINIR 300 MG ORAL CAPSULE 476426 CEFDINIR Inactive AZITHROMYCIN 500 MG INTRAVENOUS SOLUTION RECONSTITUTED 1 po q day AZITHROMYCIN 500 MG INTRAVENOUS SOLUTION RECONSTITUTED 66464612301 AZITHROMYCIN Inactive AMOXICILLIN 500 MG ORAL CAPSULE 2 po BID x 10 days AMOXICILLIN 500 MG ORAL CAPSULE 745384 AMOXICILLIN Inactive PENICILLIN V POTASSIUM 500 MG ORAL TABLET 1 pill by mouth three times daily PENICILLIN V POTASSIUM 500 MG ORAL TABLET 130579 PENICILLIN V POTASSIUM Inactive KEFLEX 500 MG ORAL CAPSULE 1 po BID x 7 days KEFLEX 500 MG ORAL CAPSULE 582548 CEPHALEXIN Inactive Immunizations Vaccine Administration Date Value [...] Fluvirin, Fluarix, Agriflu(>=18 yo)) Fluzone (>3 yrs.) [[id number]] Influenza, seasonal, injectable pneumococcal immunization administered Pneumovax [...] Measured Encounters Code Encounter Date Provider Facility CPT-69267 Level 3 Est. 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 Patient 16:52:51 CDT Vanessa Hickey MD [facility] CPT-98635 Level 3 Est. Patient 17:40:16 CDT Mima Erazo [facility] CPT-04596 Level 3 Est. Patient 14:34:52 CDT Vanessa Hickey MD [facility]-[id number] Level 3 Est. Patient 16:27:51 CDT Mima Erazo [facility]-48198 Level 3 Est. 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 Patient 18:43:34 CDT Mima Erazo [facility] CPT-96680 Level 3 Est. Patient 16:22:09 CDT Cherelle Avila [facility] CPT-53234 Level 4 Est. Patient 17:55:14 CDT Mima Erazo [facility] CPT-55169 Level 2 Est. Patient 17:13:21 CDT Alina Castaneda MD [facility]-17084 Level 3 Est. Patient 14:46:15 CDT Vanessa Hickey MD [facility]-05599 Level 3 Est. Patient 09:34:56 CDT Alina Castaneda MD [facility]61018 Level 3 Est. Patient 21:40:19 CDT Mima Erazo [facility] CPT-33771 Level 3 Est. Patient 09:26:40 CDT Marvel Charles [facility]-97287 Level 3 Est. Patient 12:36:43 CDT Vanessa Hickey MD [facility]-52914 Level 3 Est. Patient 12:57:49 CDT Vanessa Hickey MD [facility]32030 Level 3 Est. Patient 00:28:25 CDT Alina Castaneda MD PhD [facility]18291 Level 2 Est. Patient 12:52:14 CDT Alina Castaneda MD PhD [facility] CPT-14822 Level 3 Est. 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 Patient 10:09:22 HYDROPONICS WORKER Alina Castaneda MD [facility]43877 Level 3 Est. Patient 14:36:26 [facility]OPONICS [facility]ER [facility]21481 Level 3 Est. Patient 13:34:47 HYDROPONICS WORKER Alina Castaneda MD [facility]77865 Level 3 Est. Patient 19:52:08 HYDROPONICS WORKER Alina Castaneda MD [facility]-27669 Level 3 Est. Patient 10:01:51 HYDROPONICS WORKER [facility]-75610 Level 3 Est. Patient 21:54:06 CDT Vanessa Hickey MD [facility] [place]-96813 Level 3 Est. Patient 08:54:46 CDT Alina Castaneda MD [facility]-57862 Level 3 Est. Patient 09:32:11 CDT Marvel Charles [facility]-21559 Level 3 Est. Patient 12:02:49 CDT Alina Castaneda MD [facility]-68848 Level 3 Est. Patient 19:17:33 CDT Alina Castaneda MD [facility]73073 Level 3 Est. Patient 13:19:10 CDT Marvel Charles [facility]-55485 Level 3 Est. Patient 08:20:05 CDT Alina Castaneda MD [facility]80381 Level 3 Est. Patient 15:17:18 CDT Alina Castaneda MD [facility]32013 Level 3 Est. Patient 14:25:36 HYDROPONICS WORKER Marvel Charles [facility]-55778 Level 3 Est. Patient 10:09:15 HYDROPONICS WORKER Marvel Charles [facility]-43938 Level 3 Est. Patient 21:28:43 CDT Alina Castaneda MD [facility]-91730 Level 3 Est. Patient 15:20:11 CDT Marvel Charles [facility]-67972 Level 4 Est. Patient 19:08:12 CDT Alina Castaneda MD [facility]-97189 Level 3 Est. Patient 15:06:39 CDT Marvel Charles [facility]-05719 Level 4 Est. Patient 17:48:15 CDT Alina Castaneda MD [facility]-61873 Level 3 Est. Patient 14:53:49 CDT Alina Castaneda MD [facility]-09197 Level 3 Est. Patient 09:35:16 CDT Alina Castaneda MD [facility]-96634 Level 3 Est. Patient 12:23:22 CDT Alina Castaneda MD [facility]-07137 Level 3 Est. Patient 16:19:15 CDT Alina Castaneda MD [facility]-54810 Level 3 Est. Patient 21:39:56 HYDROPONICS WORKER Alina Castaneda MD [facility]-84938 Level 4 Est. Patient 14:12:56 HYDROPONICS WORKER Alina Castaneda MD [facility]-70641 Level 2 Est. Patient 15:34:57 HYDROPONICS WORKER Alina Castaneda MD [facility]-17753 Level 3 Est. Patient 12:17:04 HYDROPONICS WORKER Alina Castaneda MD [facility]-46692 Level 3 Est. Patient 09:18:18 HYDROPONICS WORKER [facility] Araceli [facility]-13850 Level 2 Est. Patient 21:50:24 CDT Alina Castaneda MD [facility]56201 Level 3 Est. Patient 09:17:28 CDT Brooksjohn Charles [facility]-93720 Level 4 Est. Patient 18:54:02 CDT Alina Castaneda MD [facility]55632 Level 3 Est. Patient 10:47:10 CDT Alina Castaneda MD [facility]-21438 Level 3 Est. Patient 09:22:20 CDT Marvel Araceli [facility]-59874 Level 3 Est. Patient 16:39:43 CDT Marvel Araceli [facility]-27637 Level 3 Est. Patient 16:05:16 CDT Alina Castaneda MD [facility]-13957 Level 3 Est. Patient 00:29:15 CDT Alina Castaneda MD [facility]-58169 Level 3 Est. Patient 10:49:22 HYDROPONICS WORKER [place] Araceli [facility]-10104 Level 3 Est. Patient 21:30:19 HYDROPONICS WORKER Alina Castaneda MD [facility]50849 Level 4 Est. Patient 17:04:11 HYDROPONICS WORKER Brooksjohn Charles [facility]-90673 Level 3 Est. Patient 15:34:11 HYDROPONICS WORKER [place] Araceli [facility]-89225 Level 2 Est. Patient 12:51:58 HYDROPONICS WORKER Alina Castaneda MD PhD [facility] CPT-03350 Level 3 Est. Patient 13:20:01 HYDROPONICS WORKER Alina Castaneda MD PhD [facility] CPT-71630 Level 3 Est. Patient 09:23:35 CDT Alina Castaneda MD PhD [facility] Procedures Code Procedure Name Date Entry Date Standard Description CPT-84037 Level 2 Penitentiary 09:01:11 CDT CPT-59817 HGBA1C - LAB USE ONLY 09:30:27 HYDROPONICS WORKER CPT-33119 BMP - LAB USE ONLY 09:30:27 HYDROPONICS WORKER CPT-39920 Venipuncture Draw Fee 09:30:26 HYDROPONICS WORKER CPT-TCMM Transitional Care Mgmt-Moderate 10:25:31 CDT CPT-64811 Bladder Scan 14:34:53 CDT CPT-84837 Bladder Scan 14:39:01 HYDROPONICS WORKER CPT-TCMM Transitional Care Mgmt-Moderate 10:30:19 HYDROPONICS WORKER CPT-76212 Bladder Scan 12:36:44 CDT CPT-36013 Bladder Scan 21:54:06 CDT CPT-G0008 Administration of Influenza Virus Vaccine 13:05:26 CDT CPT-36385 Fluzone Quadrivalent Intramuscular Suspension 0.5 ML 13: 05:26 CDT CPT-27790 Administration single or combination vaccine inc oral 11 :49:51 CDT CPT-26088 Pneumovax 11:49:51 CDT CPT-16745 Ribs unilateral 2V 12:37:22 HYDROPONICS WORKER CPT-55309 Chest 2V Frontal and Lat 17:15:26 CDT CPT-96090 Abx/Therapy Injection 18:54:02 CDT CPT-J0696 Rocephin 1000 mg (Ceftriaxone) 16:00:32 CDT CPT-59540 Chest 2V Frontal and Lat 15:26:45 CDT CPT-83747 Chest 2V Frontal and Lat 10:23:27 CDT CPT-68908 Venipuncture Draw Fee 10:11:00 CDT CPT-41073 Administration single or combination vaccine inc oral 11 :56:38 CDT CPT-47586 Influenza split virus > age 3 11:56:38 CDT CPT-09279 Venipuncture Draw Fee 08:49:54 HYDROPONICS WORKER CPT-82870 EKG Trac and Interp 17:54:19 HYDROPONICS WORKER
--- OUTSIDE RECORDS SUMMARY | 2018-07-02 13:15 | XMS REPORT | Clinical Summary ---
Author Author Admin, TERELL Organization [facility] Address Unknown Phone Unavailable Allergies, Adverse Reactions, Alerts Allergy Name Reaction Description Start Date Severity Status Provider PROZAC Critical Active CRYSTAL Suarez ABIKELYFGreg Critical Active CRYSTAL Suarez Conditions or Problems [...] Castaneda MD PhD Esophageal reflux HYPERLIPIDEMIA 272.4 Active Alina Castaneda MD PhD Other and unspecified hyperlipidemia HYPERTENSION 401.9 Correction 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 Erazo CORE BLOWER Benign paroxysmal positional vertigo Vertigo, benign paroxysmal position 386.11 Inactive Mima Erazo CORE BLOWER Benign paroxysmal positional vertigo High-risk sexual behavior V69.2 Active Alina Castaneda MD PhD High-risk sexual behavior Erectile dysfunction 302.72 Active Alina Castaneda MD PhD Psychosexual dysfunction with inhibited sexual excitement Constipation 564.00 Active Alina Castaneda MD PhD Constipation, unspecified Skin lesion 709.9 Active Alina Castaneda MD PhD Unspecified disorder of skin and subcutaneous tissue Malaise and fatigue 780.79 Active Cherelle Speaks CORE BLOWER Other malaise and fatigue Diarrhea 787.91 Active Cherelle Speaks CORE BLOWER Diarrhea PHARYNGITIS 462 Active Cherelle Speaks CORE BLOWER Acute pharyngitis Colitis 558.9 Active Mima Erazo CORE BLOWER Other and unspecified noninfectious gastroenteritis and colitis WOUND, OPEN, NOSE ICD-873.20 Inactive Alina Castaneda MD PhD DIABETES, TYPE 2 ICD-250.00 Inactive Alina Castaneda MD PhD HYPERTENSION ICD-401.9 Inactive Alina Castaneda MD PhD URI ICD-465.9 Inactive Alina Castaneda MD PhD CHEST PAIN ICD-786.50 Inactive Alina Castaneda MD PhD FH STROKE ICD-V17.1 Inactive Marvel Charles WOOD CRAFTSMAN FATIGUE ICD-780.79 Inactive Alina Castaneda MD PhD [...] Alina Castaneda MD PhD SKIN LESION ICD-709.9 Roro Castaneda MD PhD SINUSITIS, ACUTE ICD-461.9 Inactive [...] atypical ICD-786.59 Inactive Alina Castaneda MD PhD Medication List Medication Instructions Start Date Stop Date Generic Name NDC Status Provider Patient Instruction LEVEMIR FLEXTOUCH 100 UNIT/ML SC SOPN 75 units SQ each evening, for diabetes INSULIN DETEMIR 21867329737 Active Salina ROJAS Active TRUEPLUS LANCETS 30G MISC 3 a day LANCETS 80327908991 Active Marvel MENDOZAP Active TOLTERODINE TARTRATE 2 MG TABS 1 pill twice daily, for bladder TOLTERODINE TARTRATE 30054794593 No Longer Active Vanessa Hickey MD Active AMITIZA 24 MCG ORAL CAPS Take one capsule BID for constipation. LUBIPROSTONE 74919132306 No Longer Active Vanessa Hickey MD Active LOMOTIL 2.5-0.025 MG ORAL TABS take 1-2 tabs PO after each stool, no more than 8 in 24 hours DIPHENOXYLATE-ATROPINE 26822463171 Active Grace ROJAS Active FLUVOXAMINE MALEATE 100 MG ORAL TABS take one tab every AM et HS, and take 1/ 2 tab at noon FLUVOXAMINE MALEATE 79254886368 Active Grace ROJAS Active METOPROLOL SUCCINATE 100 MG [id number] 1 by mouth daily for blood pressure METOPROLOL SUCCINATE 50795051075 No Longer Active Grace Nelsonb RMA Active METFORMIN HCL ER 500 MG [id number] Take three tablets by mouth everyday METFORMIN HCL 56161973611 No Longer Active Grace Azam RMA Active LOVAZA 1 GM CAPS 4 daily (for triglycerides) OMEGA-3- ACID ETHYL ESTERS 98899968811 No Longer Active Grace Azam RMA Active TRAZODONE HCL 100 MG ORAL TABS 1 tab by mouth for sleep TRAZODONE HCL 96280927486 No Longer Active Grace Azam RMA Active NOVOFINE 32G X 6 MM MISC use one four times per day INSULIN PEN NEEDLE 51458094570 No Longer Active Grace Azam RMA Active BACTROBAN 2 % CREAM Apply to affected area BID for up to 10 days MUPIROCIN CALCIUM 61256437586 No Longer Active Grace Azam RMA Active ZOFRAN 4 MG TABS 1 po q4hr PRN Nausea ONDANSETRON HCL 37014041091 Active Salina aHn RMA Active KEFLEX 500 MG CAP 1 po BID x 7 days CEPHALEXIN 07545924831 No Longer Active Cherelle Speaks CORE BLOWER Active FLUVOXAMINE MALEATE 100 MG TABS Take one (1) tablet by mouth am, 1/2 at noon FLUVOXAMINE MALEATE 05804470110 No Longer Active Mima Erazo CORE BLOWER Active CORICIDIN HBP CONGESTION/COUGH 10-200 MG ORAL CAPS Take as directed on box as needed for cold/flu symptoms DEXTROMETHORPHAN-GUAIFENESIN 75707798330 Active Cherelle Speaks CORE BLOWER Active OMEGA-3 300 MG ORAL CAPS 4 caps by mouth daily OMEGA-3 FATTY ACIDS 65699511923 Active Cherelle Speaks CORE BLOWER Active FLUVOXAMINE MALEATE 100 MG ORAL TABS Take 1/2 tab at noon FLUVOXAMINE MALEATE 79097824138 No Longer Active Cherelle Avila ALBAN Active [facility] DROPS 0.4-0.3 % OPHTH SOLN POLYETHYL GLYCOL-PROPYL GLYCOL 03276258879 Active Mima Erazo CORE BLOWER Active CLONAZEPAM 1 MG TABS 1/2 pill by mouth three times daily CLONAZEPAM 02182608171 Active Alina Castaneda MD PhD Active MIRALAX POWD 17g by mouth daily, for constipation POLYETHYLENE GLYCOL 3350 12734283864 Active Alina Castaneda MD PhD Active HYDROCODONE-ACETAMINOPHEN 5-325 MG TABS 2 tabs by mouth three times daily for pain HYDROCODONE-ACETAMINOPHEN 29371908701 Active Mima Erazo CORE BLOWER Active HUMALOG KWIKPEN 100 UNIT/ML SC SOPN 20 units with breakfast, 10 units with lunch, 10 units with dinner, for diabetes INSULIN LISPRO (HUMAN ) 81690670916 Active Alina Castaneda MD PhD Active LATUDA 120 MG ORAL TABS 1 pill by mouth nightly LURASIDONE HCL 23821191078 Active Alina Castaneda MD PhD Active COLACE 100 MG CAPS 1 pill by mouth twice daily, for constipation DOCUSATE SODIUM 00506789918 Active Alina Castaneda MD PhD Active TRUETEST TEST STRP check blood sugars 3x/day GLUCOSE BLOOD 76191880192 Active Marvel Thurstonari WOOD CRAFTSMAN Active ACCU-CHEK ROSA UZMA Use device to check blood sugars BLOOD GLUCOSE MONITORING SUPPL 55169950255 No Longer Active Marvel Mackenzieglari LOPEZ Active ACCU-CHEK ROSA INVITR STRP use strips with device to check blood sugars 3 times daily GLUCOSE BLOOD 70384030078 No Longer Active Marvel MENDOZAP Active VERAPAMIL HCL ER 180 MG ORAL CR-TABS 1 pill by mouth twice daily, for migraine prevention VERAPAMIL HCL 20708174827 Active Alina Castaneda MD PhD Active CYCLOBENZAPRINE HCL 10 MG TABS 1 tablet by mouth three times daily, scheduled CYCLOBENZAPRINE HCL 42017268073 No Longer Active Alian Castaneda MD PhD Active HUMALOG 100 UNIT/ML SOLN Take 20 units with breakfast, 10u with lunch and suppetr. INSULIN LISPRO (HUMAN) 18792231326 No Longer Active Alina Castaneda MD PhD Active TRUETEST TEST STRP check sugars 4x/day GLUCOSE BLOOD 89086498922 No Longer Active Alina Castaneda MD PhD Active MORPHINE SULFATE 30 MG TABS 1 pill by mouth twice daily, for pain MORPHINE SULFATE 55620416639 Active Mima Erazo CORE BLOWER Active ACYCLOVIR 400 MG ORAL TABS 1 pill three times daily x 5 days, for cold sore outbreak ACYCLOVIR 11415618410 No Longer Active Alina Castaneda MD PhD Active PENICILLIN V POTASSIUM 500 MG TABS 1 pill by mouth three times daily PENICILLIN V POTASSIUM 45514240772 No Longer Active Alina Castaneda MD PhD Active UROXATRAL 10 MG [id number] Take 1 tablet by mouth daily ALFUZOSIN HCL 41099220117 No Longer Active Alina Castaneda MD PhD Active THIOTHIXENE 5 MG CAPS by mouth twice a day THIOTHIXENE 94497855381 No Longer Active Alina Castaneda MD PhD Active ZYPREXA 7.5 MG TABS 1 at HS OLANZAPINE 19143084115 No Longer Active Alina Castaneda MD PhD Active BD INSULIN SYRINGE 28G X 1/2" 1 ML MISC 1 four times per day INSULIN SYRINGE-NEEDLE U-100 95988580388 Active [facility] Gurdeepglestela [facility] Active DETROL LA 4 MG [id number] Take 1 tablet by mouth daily TOLTERODINE TARTRATE 93967223115 No Longer Active Alina Castaneda MD PhD Active TERESE CONTOUR TEST STRP monitor blood sugars 3x/day GLUCOSE BLOOD 35819758063 No Longer Active Alina Castaneda MD PhD Active EQL TRUETEST TEST STRP Test blood sugar TID GLUCOSE BLOOD 43692998489 No Longer Active Alina Castaneda MD PhD Active FLUTICASONE PROPIONATE 50 MCG/ACT SUSP 2 sprays each nostril qDay x 30 days FLUTICASONE PROPIONATE 35612721364 No Longer Active Alina Castaneda MD PhD Active IBUPROFEN 200 MG TABS 1 Q 6 hr. PRN IBUPROFEN 41835852340 No Longer Active Alina Castaneda MD PhD Active NIACIN ER 500 MG CR-TABS 4 qHS (for triglycerides) NIACIN 29755439957 No Longer Active Alina Castaneda MD PhD Active ALFUZOSIN HCL ER 10 MG [id number] 1 tablet daily ALFUZOSIN HCL 31765694513 Active Vanessa Hickey MD Active SAPHRIS 5 MG SUBL by mouth twice a day ASENAPINE MALEATE 58222009598 No Longer Active Maliheh Ziglari WOOD CRAFTSMAN Active ACETAMINOPHEN 500 MG TABS 2 Q 6 hr. PRN ACETAMINOPHEN 62830145761 No Longer Active Maliheh Ziglari WOOD CRAFTSMAN Active ORPHENADRINE CITRATE ER 100 MG [id number]-YCK 1 every 12 hr. as needed ORPHENADRINE CITRATE 85798253656 No Longer Active Alina Castaneda MD PhD Active NIACIN CR 500 MG CR-TABS 2 qHS NIACIN 15954808343 No Longer Active Alina Castaneda MD PhD Active AMOXICILLIN 500 MG CAPS 2 po BID x 10 days AMOXICILLIN 11208449502 No Longer Active Alina Castaneda MD PhD Active HYDROCODONE-ACETAMINOPHEN 7.5-325 MG TABS 1 four times a day as needed for pain HYDROCODONE-ACETAMINOPHEN 78226959245 No Longer Active Alina Castaneda MD PhD Active DOXEPIN HCL 10 MG CAPS Take 1 tablet by mouth daily DOXEPIN HCL 63717053690 No Longer Active Salina ROJAS Active NAVANE 10 MG CAPS 1/2 tablet twice a day THIOTHIXENE No Longer Active Salina ROBBINSA Active CYCLOBENZAPRINE HCL 10 MG TABS 1/2 tablet by mouth every 8 hours as needed for muscle spasms CYCLOBENZAPRINE HCL 30969205213 No Longer Active Alina Castaneda MD PhD Active BACTROBAN 2 % CREAM apply to ear and nose twice daily MUPIROCIN CALCIUM 47535929176 No Longer Active Alina Castaneda MD PhD Active HYDROCODONE-ACETAMINOPHEN 5-325 MG TABS take one tablet by mouth every four hours as needed for pain HYDROCODONE-ACETAMINOPHEN 18826058554 No Longer Active Alina Castaneda MD PhD Active ZOLPIDEM TARTRATE 10 MG TABS take at bedtime ZOLPIDEM TARTRATE 33552651550 Active Alina Castaneda MD PhD Active ZYPREXA 5 MG TABS take one tablet by mouth every evening OLANZAPINE 76445798603 No Longer Active Alina Castaneda MD PhD Active ALBUTEROL SULFATE 0.083 % NEBU SOLN one vial per nebulizer TID and PRN cough/ soa ALBUTEROL SULFATE 37252671494 No Longer Active Alina Castaneda MD PhD Active GUAIFENESIN 600 MG IP70H-ZGO 1 tablet by mouth twice daily if needed for cough GUAIFENESIN 61304068671 No Longer Active Marvel MARROQUIN Active AZITHROMYCIN 500 MG SOLR 1 po q day AZITHROMYCIN 11052784044 No Longer Active Alina Castaneda MD PhD Active PROMETHAZINE-CODEINE 6.25-10 MG/5ML SYRP 1 tsp po q 6 hours prn cough PROMETHAZINE-CODEINE 30419055156 No Longer Active Alina Castaneda MD PhD Active CEFDINIR 300 MG CAPS by mouth twice a day CEFDINIR 54414850341 No Longer Active Alina Castaneda MD PhD Active METFORMIN HCL 500 MG [id number]-SZW Take 3 tablets by mouth everyday METFORMIN HCL 55941400099 No Longer Active Alina Castaneda MD PhD Active LEVEMIR 100 UNIT/ML SOLN 90 units SQ qHS INSULIN DETEMIR 02785504694 No Longer Active Marvel MARROQUIN Active TOPROL XL 100 MG [id number]-AII 1 @ HS METOPROLOL SUCCINATE 32814337157 No Longer Active Marvel MARROQUIN Active ALLOPURINOL 300 MG TABS Take one by mouth daily ALLOPURINOL 83226399338 Active Alina Castaneda MD PhD Active ZYPREXA 10 MG TABS Take one by mouth daily OLANZAPINE 83760120773 No Longer Active Alina Castaneda MD PhD Active NOVOLOG 100 UNIT/ML SOLN 40 units with every meal INSULIN ASPART 69878644996 No Longer Active Alina Castaneda MD PhD Active VERAPAMIL HCL CR 120 MG TAB CR 1 qPM VERAPAMIL HCL 65037804902 No Longer Active Salina ROJAS Active ZYPREXA 15 MG TABS Take 1 tablet by mouth daily OLANZAPINE 03828535557 No Longer Active Marvel MARROQUIN Active LISINOPRIL 20 MG TABS 1 BID LISINOPRIL 71574571559 Active Alina Castaneda MD PhD Active ALBUTEROL SULFATE (2.5 MG/3ML) 0.083% NEBU 1 neb tid and prn cough ALBUTEROL SULFATE 20679560910 No Longer Active Alina Castaneda MD PhD Active TRAVATAN Z 0.004 % SOLN 1 gtt each eye daily TRAVOPROST 77127857844 Active CRYSTAL Suarez Active LANTUS 100 UNIT/ML SOLN 60 units sq q hs INSULIN GLARGINE 84560109983 No Longer Active CRYSTAL Suarez Active ALBUTEROL SULFATE (2.5 MG/3ML) 0.083% NEBU 1 neb tid and prn cough ALBUTEROL SULFATE (2.5 MG/3ML) 0.083% NEBU 942220 ALBUTEROL SULFATE Inactive ZYPREXA 15 MG TABS Take 1 tablet by mouth daily ZYPREXA 15 MG TABS 868312 OLANZAPINE Inactive VERAPAMIL HCL CR 120 MG TAB CR 1 qPM VERAPAMIL HCL CR 120 MG TAB CR VERAPAMIL HCL Inactive ZYPREXA 10 MG TABS Take one by mouth daily ZYPREXA 10 MG TABS 678150 OLANZAPINE Inactive TOPROL XL 100 MG [id number]-WJP 1 @ HS TOPROL XL 100 MG [id number] METOPROLOL SUCCINATE Inactive LEVEMIR 100 UNIT/ML SOLN 90 units SQ qHS LEVEMIR 100 UNIT/ML SOLN INSULIN DETEMIR Inactive PROMETHAZINE-CODEINE 6.25-10 MG/5ML SYRP 1 tsp po q 6 hours prn cough PROMETHAZINE-CODEINE 6.25-10 MG/5ML SYRP 421262 PROMETHAZINE- CODEINE Inactive GUAIFENESIN 600 MG [id number]-[id number] 1 tablet by mouth twice daily if needed for cough GUAIFENESIN 600 MG [id number] GUAIFENESIN Inactive ALBUTEROL SULFATE 0.083 % NEBU SOLN one vial per nebulizer TID and PRN cough/ soa ALBUTEROL SULFATE 0.083 % NEBU SOLN 301788 ALBUTEROL SULFATE Inactive ZYPREXA 5 MG TABS take one tablet by mouth every evening ZYPREXA 5 MG TABS 576375 OLANZAPINE Inactive HYDROCODONE-ACETAMINOPHEN 5-325 MG TABS take one tablet by mouth every four hours as needed for pain HYDROCODONE-ACETAMINOPHEN 5-325 MG TABS 647283 HYDROCODONE-ACETAMINOPHEN Inactive BACTROBAN 2 % CREAM apply to ear and nose twice daily BACTROBAN 2 % CREAM 080835 MUPIROCIN CALCIUM Inactive CYCLOBENZAPRINE HCL 10 MG TABS 1/2 tablet by mouth every 8 hours as needed for muscle spasms CYCLOBENZAPRINE HCL 10 MG TABS 467014 CYCLOBENZAPRINE HCL Inactive NAVANE 10 MG CAPS 1/2 tablet twice a day NAVANE 10 MG CAPS THIOTHIXENE Inactive DOXEPIN HCL 10 MG CAPS Take 1 tablet by mouth daily DOXEPIN HCL 10 MG CAPS 9681864 DOXEPIN HCL Inactive HYDROCODONE-ACETAMINOPHEN 7.5-325 MG TABS 1 four times a day as needed for pain HYDROCODONE-ACETAMINOPHEN 7.5-325 MG TABS 383672 HYDROCODONE-ACETAMINOPHEN Inactive NIACIN CR 500 MG CR-TABS 2 qHS NIACIN CR 500 MG CR- TABS NIACIN Inactive ORPHENADRINE CITRATE ER 100 MG [id number]-NNQ 1 every 12 hr. as needed ORPHENADRINE CITRATE ER 100 MG [id number]-VHW ORPHENADRINE CITRATE Inactive ACETAMINOPHEN 500 MG TABS 2 Q 6 hr. PRN ACETAMINOPHEN 500 MG TABS 287580 ACETAMINOPHEN Inactive SAPHRIS 5 MG SUBL by mouth twice a day SAPHRIS 5 MG SUBL ASENAPINE MALEATE Inactive NIACIN ER 500 MG CR-TABS 4 qHS (for triglycerides) NIACIN ER 500 MG CR-TABS NIACIN Inactive IBUPROFEN 200 MG TABS 1 Q 6 hr. PRN IBUPROFEN 200 MG TABS 371607 IBUPROFEN Inactive FLUTICASONE PROPIONATE 50 MCG/ACT SUSP 2 sprays each nostril qDay x 30 days FLUTICASONE PROPIONATE 50 MCG/ACT SUSP 675975 FLUTICASONE PROPIONATE Inactive EQL TRUETEST TEST STRP Test blood sugar TID EQL TRUETEST TEST STRP GLUCOSE BLOOD Inactive TERESE CONTOUR TEST STRP monitor blood sugars 3x/day TERESE CONTOUR TEST STRP GLUCOSE BLOOD Inactive DETROL LA 4 MG [id number] Take 1 tablet by mouth daily DETROL LA 4 MG [id number]-JMT TOLTERODINE TARTRATE Inactive ZYPREXA 7.5 MG TABS 1 at HS ZYPREXA 7.5 MG TABS 808043 OLANZAPINE Inactive THIOTHIXENE 5 MG CAPS by mouth twice a day THIOTHIXENE 5 MG CAPS 714646 THIOTHIXENE Inactive UROXATRAL 10 MG RM06T-ORE Take 1 tablet by mouth daily UROXATRAL 10 MG PS82B-IZK ALFUZOSIN HCL Inactive ACYCLOVIR 400 MG ORAL TABS 1 pill three times daily x 5 days, for cold sore outbreak ACYCLOVIR 400 MG ORAL TABS 957899 ACYCLOVIR Inactive TRUETEST TEST STRP check sugars 4x/day TRUETEST TEST STRP GLUCOSE BLOOD Inactive HUMALOG 100 UNIT/ML SOLN Take 20 units with breakfast, 10u with lunch and suppetr. HUMALOG 100 UNIT/ML SOLN INSULIN LISPRO ( HUMAN) Inactive CYCLOBENZAPRINE HCL 10 MG TABS 1 tablet by mouth three times daily, scheduled CYCLOBENZAPRINE HCL 10 MG TABS 953106 CYCLOBENZAPRINE HCL Inactive ACCU-CHEK ROSA INVITR STRP use strips with device to check blood sugars 3 times daily ACCU-CHEK ROSA INVITR STRP GLUCOSE BLOOD Inactive ACCU-CHEK ROSA UZMA Use device to check blood sugars ACCU-CHEK ROSA UZMA BLOOD GLUCOSE MONITORING SUPPL Inactive FLUVOXAMINE MALEATE 100 MG ORAL TABS Take 1/2 tab at noon FLUVOXAMINE MALEATE 100 MG ORAL TABS 355705 FLUVOXAMINE MALEATE Inactive FLUVOXAMINE MALEATE 100 MG TABS Take one (1) tablet by mouth am, 1/2 at noon FLUVOXAMINE MALEATE 100 MG TABS 268669 FLUVOXAMINE MALEATE Inactive BACTROBAN 2 % CREAM Apply to affected area BID for up to 10 days BACTROBAN 2 % CREAM 704734 MUPIROCIN CALCIUM Inactive NOVOFINE 32G X 6 MM MISC use one four times per day NOVOFINE 32G X 6 MM MISC INSULIN PEN NEEDLE Inactive TRAZODONE HCL 100 MG ORAL TABS 1 tab by mouth for sleep TRAZODONE HCL 100 MG ORAL TABS 904921 TRAZODONE HCL Inactive LOVAZA 1 GM CAPS 4 daily (for triglycerides) LOVAZA 1 GM CAPS 434695 CJIVJ-7-PDNO ETHYL ESTERS Inactive METFORMIN HCL ER 500 MG BX81L-WAZ Take three tablets by mouth everyday METFORMIN HCL ER 500 MG [id number]-LFX METFORMIN HCL Inactive METOPROLOL SUCCINATE 100 MG HN33P-DIQ 1 by mouth daily for blood pressure METOPROLOL SUCCINATE 100 MG BO09E-ZHP METOPROLOL SUCCINATE Inactive AMITIZA 24 MCG ORAL CAPS Take one capsule BID for constipation. AMITIZA 24 MCG ORAL CAPS LUBIPROSTONE Inactive TOLTERODINE TARTRATE 2 MG TABS 1 pill twice daily, for bladder TOLTERODINE TARTRATE 2 MG TABS 928810 TOLTERODINE TARTRATE Inactive CEFDINIR 300 MG CAPS by mouth twice a day CEFDINIR 300 MG CAPS 181174 CEFDINIR Inactive AZITHROMYCIN 500 MG SOLR 1 po q day AZITHROMYCIN 500 MG SOLR 36529113435 AZITHROMYCIN Inactive AMOXICILLIN 500 MG CAPS 2 po BID x 10 days AMOXICILLIN 500 MG CAPS 964533 AMOXICILLIN Inactive PENICILLIN V POTASSIUM 500 MG TABS 1 pill by mouth three times daily PENICILLIN V POTASSIUM 500 MG TABS 117089 PENICILLIN V POTASSIUM Inactive KEFLEX 500 MG CAP 1 po BID x 7 days KEFLEX 500 MG CAP 267044 CEPHALEXIN Inactive Immunizations Vaccine Administration Date Value [...] Fluvirin, Fluarix, Agriflu(>=18 yo)) Fluzone (>3 yrs.) [GRF228] Influenza, seasonal, injectable pneumococcal immunization administered Pneumovax 23 [CVX33] pneumococcal polysaccharide vaccine, 23 valent Vital Signs Date Name Value Unit Range Description blood pressure, diastolic - 8462-4 85 mm[Hg] BP garcia blood pressure, systolic - 8480-6 134 mm[Hg] BP sys pulse rate E&M - 8867-4 85 /min Heart rate temperature E&M 97.8 [degF] Body temperature weight E&M - 3141-9 220 [lb_av] Weight Measured blood pressure, diastolic - 8462-4 74 mm[Hg] BP garcia blood pressure, systolic - 8480-6 129 mm[Hg] BP sys pulse rate E&M - 8867-4 111 /min Heart rate temperature E&M 97.5 [degF] Body temperature weight E&M - 3141-9 220.5 [lb_av] Weight Measured blood pressure, diastolic - 8462-4 82 mm[Hg] BP garcia blood pressure, systolic - 8480-6 137 mm[Hg] BP sys pulse rate E&M - 8867-4 104 /min Heart rate temperature E&M 97.9 [degF] Body temperature weight E&M - 3141-9 219 [lb_av] Weight Measured blood pressure, diastolic - 8462-4 58 mm[Hg] BP garcia blood pressure, systolic - 8480-6 101 mm[Hg] BP sys pulse rate E&M - 8867-4 113 /min Heart rate respiratory rate E&M - 9279-1 24 /min Resp rate temperature E&M 98.7 [degF] Body temperature weight E&M - 3141-9 236.5 [lb_av] Weight Measured blood pressure, diastolic - 8462-4 64 mm[Hg] BP garcia blood pressure, systolic - 8480-6 109 mm[Hg] BP sys pulse rate E&M - 8867-4 69 /min Heart rate temperature E&M 98.1 [degF] Body temperature weight E&M - 3141-9 238 [lb_av] Weight Measured blood pressure, diastolic - 8462-4 71 mm[Hg] BP garcia blood pressure, systolic - 8480-6 109 mm[Hg] BP sys pulse rate E&M - 8867-4 91 /min Heart rate temperature E&M 98.1 [degF] Body temperature weight E&M - 3141-9 232 [lb_av] Weight Measured blood pressure, diastolic - 8462-4 75 mm[Hg] BP garcia blood pressure, systolic - 8480-6 117 mm[Hg] BP sys pulse rate E&M - 8867-4 89 /min Heart rate temperature E&M 96.0 [degF] Body temperature weight E&M - 3141-9 235 [lb_av] Weight Measured blood pressure, diastolic - 8462-4 70 mm[Hg] BP garcia blood pressure, systolic - 8480-6 113 mm[Hg] BP sys pulse rate E&M - 8867-4 74 /min Heart rate temperature E&M 98.4 [degF] Body temperature weight E&M - 3141-9 233.3 [lb_av] Weight Measured blood pressure, diastolic - 8462-4 74 mm[Hg] BP garcia blood pressure, systolic - 8480-6 117 mm[Hg] BP sys temperature E&M 97.0 [degF] Body temperature weight E&M - 3141-9 242.6 [lb_av] Weight Measured blood pressure, diastolic - 8462-4 67 mm[Hg] BP garcia blood pressure, systolic - 8480-6 112 mm[Hg] BP sys pulse rate E&M - 8867-4 75 /min Heart rate temperature E&M 98.4 [degF] Body temperature weight E&M - 3141-9 240 [lb_av] Weight Measured blood pressure, diastolic - 8462-4 56 mm[Hg] BP garcia blood pressure, systolic - 8480-6 87 mm[Hg] BP sys pulse rate E&M - 8867-4 67 /min Heart rate temperature E&M 98.0 [degF] Body temperature weight E&M - 3141-9 242.0 [lb_av] Weight Measured blood pressure, diastolic - 8462-4 60 mm[Hg] BP garcia blood pressure, systolic - 8480-6 118 mm[Hg] BP sys pulse rate E&M - 8867-4 84 /min Heart rate weight E&M - 3141-9 238 [lb_av] Weight Measured blood pressure, diastolic - 8462-4 60 mm[Hg] BP garcia blood pressure, systolic - 8480-6 122 mm[Hg] BP sys pulse rate E&M - 8867-4 70 /min Heart rate temperature E&M 98.0 [degF] Body temperature weight E&M - 3141-9 245 [lb_av] Weight Measured blood pressure, diastolic - 8462-4 67 mm[Hg] BP garcia blood pressure, systolic - 8480-6 134 mm[Hg] BP sys pulse rate E&M - 8867-4 74 /min Heart rate temperature E&M 97.9 [degF] Body temperature weight E&M - 3141-9 246.8 [lb_av] Weight Measured blood pressure, diastolic - 8462-4 58 mm[Hg] BP garcia blood pressure, systolic - 8480-6 117 mm[Hg] BP sys pulse rate E&M - 8867-4 76 /min Heart rate temperature E&M 97.8 [degF] Body temperature weight E&M - 3141-9 245 [lb_av] Weight Measured blood pressure, diastolic - 8462-4 66 mm[Hg] BP garcia blood pressure, systolic - 8480-6 113 mm[Hg] BP sys pulse rate E&M - 8867-4 76 /min Heart rate temperature E&M 97.5 [degF] Body temperature weight E&M - 3141-9 235.4 [lb_av] Weight Measured blood pressure, diastolic - 8462-4 74 mm[Hg] BP garcia blood pressure, systolic - 8480-6 145 mm[Hg] BP sys pulse rate E&M - 8867-4 88 /min Heart rate temperature E&M 98.6 [degF] Body temperature weight E&M - 3141-9 237.6 [lb_av] Weight Measured blood pressure, diastolic - 8462-4 71 mm[Hg] BP garcia blood pressure, systolic - 8480-6 124 mm[Hg] BP sys pulse rate E&M - 8867-4 90 /min Heart rate temperature E&M 97.9 [degF] Body temperature weight E&M - 3141-9 235 [lb_av] Weight Measured Diagnostic Results Date Name Value Unit Range Description Lab Report: Basic Metabolic Panel, HGBA1C, MICROALBUMIN - Chemistry sodium, serum 137 mmol/L 078-951 3702/05/19 potassium, serum 5.2 mmol/L 3.5-5.2 chloride, serum 102 mmol/L 98-107 carbon dioxide, venous blood 22.5 mmol/L 21.0-32.0 blood glucose 199 mg/dL 65-110 calcium, serum 9.6 mg/dL 8.5-10.1 urea nitrogen, blood 16 mg/dL 7-18 creatinine, serum 1.10 mg/dL 0.60-1.30 hemoglobin A1C, blood, as % of total hemoglobin 6.2 % 4.3-6.0 albumin/creatinine ratio, urine < 30 mg/g mg/g{creat} 0-29 Lab Report: Basic Metabolic Panel, HGBA1C, MICROALBUMIN - Lab microalbumin, urine 10 0-19 Lab Report: CBC W/DIFF, Basic Metabolic Panel - Chemistry sodium, serum 137 mmol/L 732-812 0373/10/12 potassium, serum 4.8 mmol/L 3.5-5.2 chloride, serum 102 mmol/L 98-107 carbon dioxide, venous blood 27.6 mmol/L 21.0-32.0 blood glucose 168 mg/dL 65-110 calcium, serum 9.0 mg/dL 8.5-10.1 urea nitrogen, blood 15 mg/dL 7-18 creatinine, serum 1.04 mg/dL 0.55-1.30 sodium, serum 138 mmol/L 467-156 3845/11/11 potassium, serum 4.7 mmol/L 3.5-5.2 chloride, serum 103 mmol/L 98-107 carbon dioxide, venous blood 23.3 mmol/L 21.0-32.0 blood glucose 170 mg/dL 65-110 calcium, serum 8.6 mg/dL 8.5-10.1 urea nitrogen, blood 17 mg/dL 7-18 creatinine, serum 1.51 mg/dL 0.55-1.30 Lab Report: CBC W/DIFF, Basic Metabolic Panel - Hematology leukocyte count, blood 9.6 10^3/MM^3 10*3/mm3 4.6-10.2 neutrophils as percent of blood leukocytes 75.0 % 42.2-75.2 monocytes as percent of blood leukocytes 6.5 % 1.7-9.3 lymphocytes as percent of blood leukocytes 12.7 % 20.5-51.1 erythrocyte (RBC) count 4.33 10^6/MM^3 10*6/mm3 4.69-6.13 hemoglobin, blood 13.5 g/dL 13.5-17.5 hematocrit, blood 39.5 % 41.0-53.0 mean corpuscular volume, RBC 91 fL 80-97 mean corpuscular hemoglobin, RBC 31.2 pg 27.0-31.2 mean corpuscular hemoglobin concentration, RBC 34.1 G/DL % 31.8- 35.4 red blood cell distribution width 15.3 % 11.6-14.8 platelet count 252 10^3/MM^3 10*3/mm3 667-376 8026/10/12 leukocyte count, blood 5.8 10^3/MM^3 10*3/mm3 4.6-10.2 neutrophils as percent of blood leukocytes 59.5 % 42.2-75.2 monocytes as percent of blood leukocytes 8.3 % 1.7-9.3 lymphocytes as percent of blood leukocytes 26.9 % 20.5-51.1 erythrocyte (RBC) count 4.54 10^6/MM^3 10*6/mm3 4.69-6.13 hemoglobin, blood 13.7 g/dL 13.5-17.5 hematocrit, blood 40.2 % 41.0-53.0 mean corpuscular volume, RBC 89 fL 80-97 mean corpuscular hemoglobin, RBC 30.1 pg 27.0-31.2 mean corpuscular hemoglobin concentration, RBC 34.0 G/DL % 31.8- 35.4 red blood cell distribution width 15.6 % 11.6-14.8 platelet count 240 10^3/MM^3 10*3/mm3 142-424 Lab Report: Chlamydia/GC APTIMA/41008, HIV-1/2 Agn/Dominga/07057, RPR (DX) W ... - Chemistry hepatitis B surface antigen NON-REACTIVE NON-REACTIVE Lab Report: Chlamydia/GC APTIMA/91794, HIV-1/2 Agn/Dominga/30958, RPR (DX) W ... - Lab chlamydia DNA probe NOT DETECTED NOT DETECTED Lab Report: Chlamydia/GC APTIMA/47584, HIV-1/2 Agn/Dominga/14686, RPR (DX) W ... - Microbiology Neisseria gonorrhoeae DNA probe NOT DETECTED NOT DETECTED Lab Report: Chlamydia/GC APTIMA/06173, HIV-1/2 Agn/Dominga/03165, RPR (DX) W ... - Serology rapid plasma reagin antibody titer NON-REACTIVE NON-REACTIVE Lab Report: HGBA1C - Chemistry hemoglobin A1C, blood, as % of total hemoglobin 6.1 % 4.3-6.0 hemoglobin A1C, blood, as % of total hemoglobin 6.3 % 4.3-6.0 Lab Report: Lipid Panel, HEPATIC PANEL, MICROALBUMIN, CBC - Chemistry cholesterol, serum 131 mg/dL 275-705 7623/06/03 triglyceride, serum, fasting 383 mg/dL 30-200 HDL cholesterol, serum 23 mg/dL 32-96 LDL cholesterol, serum 31 mg/dL 0-130 aspartate aminotransferase (SGOT), serum 52 U/L 15-37 alanine aminotransferase (SGPT), serum 112 U/L 12-78 bilirubin, serum, total 0.30 mg/dL 0.00-1.00 albumin/creatinine ratio, urine < 30 mg/g mg/g{creat} 0-29 Lab Report: Lipid Panel, HEPATIC PANEL, MICROALBUMIN, CBC - Hematology leukocyte count, blood 7.3 10^3/MM^3 10*3/mm3 4.6-10.2 erythrocyte (RBC) count 4.96 10^6/MM^3 10*6/mm3 4.69-6.13 hemoglobin, blood 14.8 g/dL 13.5-17.5 hematocrit, blood 43.1 % 41.0-53.0 mean corpuscular volume, RBC 87 fL 80-97 mean corpuscular hemoglobin, RBC 29.8 pg 27.0-31.2 mean corpuscular hemoglobin concentration, RBC 34.3 G/DL % 31.8- 35.4 red blood cell distribution width 16.2 % 11.6-14.8 platelet count 239 10^3/MM^3 10*3/mm3 142-424 Lab Report: Lipid Panel, HEPATIC PANEL, MICROALBUMIN, CBC - Lab microalbumin, urine 30 0-19 Lab Report: Lipid Panel, Prostatic Specific Ag, MICROALBUMIN, Uric Acid - Chemistry albumin/creatinine ratio, urine < 30 mg/g mg/g{creat} 0-29 uric acid, serum 4.7 mg/dL 2.6-7.2 cholesterol, serum 142 mg/dL [phone]/06/26 triglyceride, serum, fasting 272 mg/dL 30-200 HDL cholesterol, serum 22 mg/dL 32-96 LDL cholesterol, serum 66 mg/dL 0-130 prostate specific antigen 0.37 ng/mL 0.00-4.00 Lab Report: Lipid Panel, Prostatic Specific Ag, MICROALBUMIN, Uric Acid - Lab microalbumin, urine 80 0-19 Lab Report: UADIP W/MICRO, AUTO - Chemistry protein, total urine random Negative mg/dL Negative RBC, urine, dipstick Negative Negative Lab Report: UADIP W/MICRO, AUTO - Urinalysis urobilinogen, urine, semiquantitative (dipstick) 1.0 Normal leukocyte esterase, urine, by dipstick Negative Negative nitrite, urine, semiquantitative Negative Negative glucose, urine, semiquantitative Negative Negative ketones, urine, by test strip Trace Negative bilirubin, urine Negative Negative urine color Yellow Colorless;Lightyellow;Straw;Yellow appearance, urine Clear Clear specific gravity, urine 1.020 1.000-1.030 pH, urine, semiquantitative 5.5 5.0-8.5 Office Visit: 1 month follow up retention - Chemistry protein, total urine random negative mg/dL RBC, urine, dipstick non-hemolyzed trace Office Visit: 1 month follow up retention - Urinalysis ketones, urine, by test strip negative bilirubin, urine negative glucose, urine, semiquantitative negative pH, urine, semiquantitative 6.0 specific gravity, urine 1.015 urinalysis, routine Clean Catch urine color yellow appearance, urine clear leukocyte esterase, urine, by dipstick negative nitrite, urine, semiquantitative negative urobilinogen, urine, semiquantitative (dipstick) negative protein, urine, semiquantitative (dipstick) negative Office Visit: 6 mo f/u uroxatrol - Chemistry RBC, urine, dipstick negative Office Visit: 6 mo f/u uroxatrol - Urinalysis ketones, urine, by test strip negative bilirubin, urine negative glucose, urine, semiquantitative negative pH, urine, semiquantitative 6 specific gravity, urine 1.000 urine color yellow appearance, urine clear leukocyte esterase, urine, by dipstick negative nitrite, urine, semiquantitative negative urobilinogen, urine, semiquantitative (dipstick) 0.2 protein, urine, semiquantitative (dipstick) negative Office Visit: Diabetes Visit - Chemistry cholesterol, target level 200 mg/dL triglyceride, target level 200 mg/dL HDL cholesterol, serum, target level 35 mg/dL LDL target level 100 mg/dL Office Visit: Difficulty urinating - Chemistry RBC, urine, dipstick negative protein, total urine random negative mg/dL Office Visit: Difficulty urinating - Urinalysis ketones, urine, by test strip negative bilirubin, urine negative glucose, urine, semiquantitative negative urinalysis, routine Clean Catch culture status No pH, urine, semiquantitative 5 specific gravity, urine 1.010 urine color yellow appearance, urine clear leukocyte esterase, urine, by dipstick negative nitrite, urine, semiquantitative negative urobilinogen, urine, semiquantitative (dipstick) negative protein, urine, semiquantitative (dipstick) negative Encounters Code Encounter Date Provider Facility CPT-69361 Level 3 Est. Patient 14:39:00 [facility] Vanessa Hickey MD [facility] CPT-46739 Level 2 Est. Patient 18:43:34 CDT Mima Erazo [facility] CPT-91953 Level 3 Est. Patient 16:22:09 CDT Cherelle Avila [facility] CPT-75025 Level 4 Est. Patient 17:55:14 CDT Mima Erazo [facility] CPT-77562 Level 2 Est. Patient 17:13:21 CDT Alina Castaneda MD PhD [facility] CPT-73051 Level 3 Est. Patient 14:46:15 CDT Vanessa Hickey MD [facility] CPT-46087 Level 3 Est. Patient 09:34:56 CDT Alina Castaneda MD [facility]-86128 Level 3 Est. Patient 21:40:19 CDT Mima Erazo [facility]-22331 Level 3 Est. Patient 09:26:40 CDT Marvel Charles [facility]-47592 Level 3 Est. Patient 12:36:43 CDT Vanessa Hickey MD [facility]-23465 Level 3 Est. Patient 12:57:49 CDT Vanessa Hickey MD [facility]-43765 Level 3 Est. Patient 00:28:25 CDT Alina Castaneda MD [facility]05493 Level 2 Est. Patient 12:52:14 CDT Alina Castaneda MD [facility]-34500 Level 3 Est. Patient 11:51:18 [facility] [employer] Alina Castaneda MD [facility] CPT-71060 Level 3 Est. Patient 10:09:22 [employer] Alina Castaneda MD [facility]-39570 Level 3 Est. Patient 14:36:26 [facility] [employer] Marvel Charles [facility] [place][note 2] CPT-40999 Level 3 Est. Patient 13:34:47 [employer] Alina Castaneda MD [facility]-42296 Level 3 Est. Patient 19:52:08 [employer] [employer] Alina Castaneda MD [facility] CPT-90917 Level 3 Est. Patient 10:01:51 [employer] Marvel Charles [facility]-25769 Level 3 Est. Patient 21:54:06 CDT Vanessa Hickey MD [facility]-88378 Level 3 Est. Patient 08:54:46 CDT Alina Castaneda MD [facility]-94811 Level 3 Est. Patient 09:32:11 CDT Marvel Charles [facility]-14366 Level 3 Est. Patient 12:02:49 CDT Alina Castaneda MD [facility]-36843 Level 3 Est. Patient 19:17:33 CDT Alina Castaneda MD [facility]-66061 Level 3 Est. Patient 13:19:10 CDT Marvel Gurdeepajayestela [facility]-18845 Level 3 Est. Patient 08:20:05 CDT Alina Castaneda MD [facility]-64892 Level 3 Est. Patient 15:17:18 CDT Alina Castaneda MD [facility]-35598 Level 3 Est. Patient 14:25:36 [employer] Marvel Charles [facility]-25230 Level 3 Est. Patient 10:09:15 [facility] Patient 21:28:43 CDT Alina Castaneda MD [facility]-84198 Level 3 Est. Patient 15:20:11 CDT Marvel Araceli [facility]-27237 Level 4 Est. Patient 19:08:12 CDT Alina Castaneda MD [facility]-33590 Level 3 Est. Patient 15:06:39 CDT Brookslsahondanivia Araceli [facility]-80155 Level 4 Est. Patient 17:48:15 CDT Alina Castaneda MD [facility]-78102 Level 3 Est. Patient 14:53:49 CDT Alina Castaneda MD [facility]-43240 Level 3 Est. Patient 09:35:16 CDT Alina Castaneda MD [facility]-60983 Level 3 Est. Patient 12:23:22 CDT Alina Castaneda MD [facility]58025 Level 3 Est. Patient 16:19:15 CDT Alina Castaneda MD [facility]-03572 Level 3 Est. Patient 21:39:56 [employer] Alina Castaneda MD [facility]-28243 Level 4 Est. Patient 14:12:56 [employer] Alina Castaneda MD [facility]17458 Level 2 Est. Patient 15:34:57 [employer] Alina Castaneda MD [facility]-49585 Level 3 Est. Patient 12:17:04 [employer] Alina Castaneda MD [facility]-88068 Level 3 Est. Patient 09:18:18 [employer] Marvel Charles [facility]-15227 Level 2 Est. Patient 21:50:24 CDT Alina Castaneda MD [facility]-76629 Level 3 Est. Patient 09:17:28 CDT Marvel Charles [facility]-72935 Level 4 Est. Patient 18:54:02 CDT Alina Castaneda MD [facility]-43766 Level 3 Est. Patient 10:47:10 CDT Alina Castaneda MD [facility]47857 Level 3 Est. Patient 09:22:20 CDT Marvel Charles [facility]-59197 Level 3 Est. Patient 16:39:43 CDT Marvel Charles [facility] [place][note 2] CPT-43939 Level 3 Est. Patient 16:05:16 CDT Alina Castaneda MD [facility] CPT-42117 Level 3 Est. Patient 00:29:15 CDT Alina Castaneda MD [facility] CPT-43183 Level 3 Est. Patient 10:49:22 [employer] Marvel Thurstonestela [facility] [place][note 2] CPT-86552 Level 3 Est. Patient 21:30:19 [employer] Alina Castaneda MD [facility] CPT-35621 Level 4 Est. Patient 17:04:11 [employer] Marvel Thurstonestela [facility] [place][note 2] CPT-12161 Level 3 Est. Patient 15:34:11 [facility]228 Level 2 Est. Patient 12:51:58 [employer] Alina Castaneda MD [facility] CPT-62440 Level 3 Est. Patient 13:20:01 [employer] Alina Castaneda MD [facility] CPT-70641 Level 3 Est. Patient 09:23:35 CDT Alina Castaneda MD [facility] Procedures Code Procedure Name Date Entry Date Standard Description CPT-69290 Bladder Scan 14:39:01 [facility] [employer] CPT-TCMM Transitional Care Mgmt-Moderate 10:30:19 [employer] [employer] CPT-98906 Bladder Scan 12:36:44 CDT CPT-89111 Bladder Scan 21:54:06 CDT CPT-G0008 Administration of Influenza Virus Vaccine 13:05:26 CDT CPT-35330 Fluzone Quadrivalent Intramuscular Suspension 0.5 ML 13: 05:26 CDT CPT-65636 Administration single or combination vaccine inc oral 11 :49:51 CDT CPT-02378 Pneumovax 11:49:51 CDT CPT-40342 Ribs unilateral 2V 12:37:22 [facility] CPT-99973 Chest 2V Frontal and Lat 17:15:26 CDT CPT-73521 Abx/Therapy Injection 18:54:02 CDT CPT-J0696 Rocephin 1000 mg (Ceftriaxone) 16:00:32 CDT CPT-03344 Chest 2V Frontal and Lat 15:26:45 CDT CPT-43827 Chest 2V Frontal and Lat 10:23:27 CDT CPT-46798 Venipuncture Draw Fee 10:11:00 CDT CPT-26042 Administration single or combination vaccine inc oral 11 :56:38 CDT CPT-62490 Influenza split virus > age 3 11:56:38 CDT CPT-68509 Venipuncture Draw Fee 08:49:54 [facility] [employer] CPT-16934 EKG Trac and Interp 17:54:19 [facility]
--- OUTSIDE RECORDS SUMMARY | 2018-07-02 13:16 | XMS REPORT | Clinical Summary ---
Author Author Admin, TERELL Organization [facility] Address Unknown Phone Unavailable Allergies, Adverse Reactions, [...] PhD Open wound of nose, unspecified site, uncomplicated ANXIETY DISORDER 300.00 Active Alina Castaneda MD [...] MELLITUS, TYPE II, UNCONTROLLED 250.02 Resolved Marvel MARROQIUN Diabetes mellitus without mention of complication , type II or unspecified type, uncontrolled PALPITATIONS 785.1 Active Alina Castaneda MD PhD Palpitations UNSPECIFIED TACHYCARDIA 785.0 Resolved Alina Castaneda MD PhD Tachycardia, unspecified ABNORMAL HEART RHYTHMS 427.9 Active Alina Castaneda MD PhD Cardiac dysrhythmia, unspecified [...] unspecified DIABETIC HYPOGLYCEMIA, TYPE II 250.80 Resolved Zainnivia Araceli MARROQUIN Diabetes mellitus with other specified manifestations, type II or unspecified type, not stated as uncontrolled SUBDURAL HEMATOMA 432.1 Resolved Alina Castaneda MD PhD Subdural hemorrhage Diabetes mellitus, type II, uncontrolled 250.02 Active Zainnivia Araceli MARROQUIN Diabetes mellitus without mention of complication, type II or unspecified type, uncontrolled 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 Active Alina Castaneda MD PhD Recurrent isolated sleep paralysis SPECIAL SCREENING FOR MALIGNANT NEOPLASM OF PROSTATE V76.44 Resolved Alina Castaneda MD PhD Screening for malignant neoplasms of prostate Hypoglycemia 251.2 Resolved Alina Castaneda MD PhD Hypoglycemia, unspecified Diabetes mellitus, type II 250.00 Active Zainnivia Mackenzieanca MARROQUIN Diabetes mellitus without mention of complication, [...] tongue and floor of mouth, uncomplicated 873.64 Active Alina Castaneda MD PhD Open wound of tongue and floor of mouth, uncomplicated Chest pain, atypical 786.59 Active Alina Castaneda MD PhD Other chest pain Chest pain, atypical 786.59 Active Alina Castaneda MD PhD Other chest pain Urinary Retention 788.20 Active Vanessa Hickey MD Retention of urine, unspecified WOUND, OPEN, NOSE ICD-873.20 Inactive Alina Castaneda MD PhD DIABETES, TYPE 2 ICD-250.00 Inactive Alina Castaneda MD PhD HYPERTENSION ICD-401.9 Inactive Alina Castaneda MD PhD URI ICD-465.9 Inactive Alina Castaneda MD PhD CHEST PAIN ICD-786.50 Inactive Alina Castaneda MD PhD FH STROKE ICD-V17.1 Inactive Marvel MARROQUIN FATIGUE ICD-780.79 Inactive Alina Castaneda MD PhD DIABETES MELLITUS, TYPE II, UNCONTROLLED ICD-250.02 Roro MARROQUIN UNSPECIFIED TACHYCARDIA ICD-785.0 Inactive Alina Castaneda [...] HEMATOMA ICD-432.1 Inactive Alina Castaneda MD PhD SPECIAL SCREENING FOR MALIGNANT NEOPLASM OF PROSTATE ICD-V76.44 Inactive Alina Castaneda MD PhD Hypoglycemia ICD-251.2 Inactive Alina Castaneda MD PhD Dizziness ICD-780.4 Inactive Alina Castaneda MD PhD Confusion ICD-298.9 Inactive Alina Castaneda MD PhD Medication List Medication Instructions Start Date Stop Date Generic Name NDC Status Provider Patient Instruction HUMALOG 100 UNIT/ML SC SOLN 20u am , 10u lunch and supper INSULIN LISPRO (HUMAN) 34042233177 Active Marvel MENDOZAP Active LATUDA 120 MG ORAL TABS 1 pill by mouth nightly LURASIDONE HCL 39491289129 Active Alina Castaneda MD PhD Active COLACE 100 MG CAPS 1 pill by mouth twice daily, for constipation DOCUSATE SODIUM 51517979073 Active Alina Castaneda MD PhD Active TRUETEST TEST STRP check blood sugars 3x/day GLUCOSE BLOOD 39210849095 Active Mallashondaeh 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 SIZING MACHINE TENDER Active ACCU-CHEK ROSA UZMA Use device to check blood sugars BLOOD GLUCOSE MONITORING SUPPL 59240719829 No Longer Active Maliheh Ziglari SIZING MACHINE TENDER Active ACCU-CHEK ROSA INVITR STRP use strips with device to check blood sugars 3 times daily GLUCOSE BLOOD 73463030853 No Longer Active Mallashondaeh 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 SIZING MACHINE TENDER Active VERAPAMIL HCL ER 180 MG ORAL CR-TABS 1 pill by mouth twice daily, for migraine prevention VERAPAMIL HCL 76751893224 Active Alina Castaneda MD PhD Active CYCLOBENZAPRINE HCL 10 MG TABS 1 tablet by mouth three times daily, scheduled CYCLOBENZAPRINE HCL 99593295212 No Longer Active Alina Castaneda MD PhD Active HUMALOG 100 UNIT/ML SOLN Take 20 units with breakfast, 10u with lunch and suppetr. INSULIN LISPRO (HUMAN) 65075285380 No Longer Active Alina Castaneda MD PhD Active TRUETEST TEST STRP check sugars 4x/day GLUCOSE BLOOD 26789798319 No Longer Active Alina Castaneda MD PhD Active MORPHINE SULFATE 30 MG TABS 1 pill by mouth twice daily, for pain MORPHINE SULFATE 49694575305 Active Mason Loredo MD Active ACYCLOVIR 400 MG ORAL TABS 1 pill three times daily x 5 days, for cold sore outbreak ACYCLOVIR 02739410805 No Longer Active Alina Castaneda MD PhD Active PENICILLIN V POTASSIUM 500 MG TABS 1 pill by mouth three times daily PENICILLIN V POTASSIUM 61421740527 No Longer Active Alina Castaneda MD PhD Active UROXATRAL 10 MG [id number] Take 1 tablet by mouth daily ALFUZOSIN HCL 40864815748 No Longer Active Alina Castaneda MD PhD Active THIOTHIXENE 5 MG CAPS by mouth twice a day THIOTHIXENE 03736404981 No Longer Active Alina Castaneda MD PhD Active ZYPREXA 7.5 MG TABS 1 at HS OLANZAPINE 09985740410 No Longer Active Alina Castaneda MD PhD Active LEVEMIR 100 UNIT/ML SOLN Take 70 u at 7-8pm INSULIN DETEMIR 48292694498 Active Marvel Mackenzieglari SIZING MACHINE TENDER Active BD INSULIN SYRINGE 28G X 1/2" 1 ML MISC 1 four times per day INSULIN SYRINGE-NEEDLE U-100 30271442919 Active Marvel Mackenzieglari SIZING MACHINE TENDER Active TOLTERODINE TARTRATE 2 MG TABS 1 pill twice daily, for bladder TOLTERODINE TARTRATE 71722438637 Active Alina Castaneda MD PhD Active DETROL LA 4 MG [id number] Take 1 tablet by mouth daily TOLTERODINE TARTRATE 60064190414 No Longer Active Alina Castaneda MD PhD Active HYDROCODONE-ACETAMINOPHEN 5-325 MG TABS 2 tabs by mouth three times daily as needed for pain HYDROCODONE-ACETAMINOPHEN 49307032300 Active Alina Castaneda MD PhD Active TERESE CONTOUR TEST STRP monitor blood sugars 3x/day GLUCOSE BLOOD 22999003205 No Longer Active Alina Castaneda MD PhD Active EQL TRUETEST TEST STRP Test blood sugar TID GLUCOSE BLOOD 80490631036 No Longer Active Alina Castaneda MD PhD Active FLUTICASONE PROPIONATE 50 MCG/ACT SUSP 2 sprays each nostril qDay x 30 days FLUTICASONE PROPIONATE 97395698642 No Longer Active Alina Castaneda MD PhD Active IBUPROFEN 200 MG TABS 1 Q 6 hr. PRN IBUPROFEN 78039391152 No Longer Active Alina Castaneda MD PhD Active NIACIN ER 500 MG CR-TABS 4 qHS (for triglycerides) NIACIN 09078013768 No Longer Active Alina Castaneda MD PhD Active ALFUZOSIN HCL ER 10 MG [id number] 1 tablet daily ALFUZOSIN HCL 31390794149 Active Vanessa Hickey MD Active CLONAZEPAM 1 MG TABS 1 pill by mouth three times daily CLONAZEPAM 02144127964 Active Alina Castaneda MD PhD Active LOVAZA 1 GM CAPS 4 daily (for triglycerides) [id number]-5-[id number] ETHYL ESTERS 83742357676 Active Mao Rodriguez MD Active SAPHRIS 5 MG SUBL by mouth twice a day ASENAPINE MALEATE 46565605066 No Longer Active Maljohn Ziglari SIZING MACHINE TENDER Active ACETAMINOPHEN 500 MG TABS 2 Q 6 hr. PRN ACETAMINOPHEN 64083175118 No Longer Active Maliheh Ziglari SIZING MACHINE TENDER Active ORPHENADRINE CITRATE ER 100 MG [id number]-HTG 1 every 12 hr. as needed ORPHENADRINE CITRATE 60743396011 No Longer Active Alina Castaneda MD PhD Active NIACIN CR 500 MG CR-TABS 2 qHS NIACIN 46228661565 No Longer Active Alina Castaneda MD PhD Active AMOXICILLIN 500 MG CAPS 2 po BID x 10 days AMOXICILLIN 51660372031 No Longer Active Alina Castaneda MD PhD Active HYDROCODONE-ACETAMINOPHEN 7.5-325 MG TABS 1 four times a day as needed for pain HYDROCODONE-ACETAMINOPHEN 80057813849 No Longer Active Alina Castaneda MD PhD Active METFORMIN HCL ER 500 MG [id number]-UKI Take three tablets by mouth everyday METFORMIN HCL 57584440109 Active Marvel Charles SIZING MACHINE TENDER Active DOXEPIN HCL 10 MG CAPS Take 1 tablet by mouth daily DOXEPIN HCL 85880364818 No Longer Active Salina Han COUNTS INCLUDE 234 BEDS AT [facility] Active NAVANE 10 MG CAPS 1/2 tablet twice a day THIOTHIXENE No Longer Active Salina Han COUNTS INCLUDE 234 BEDS AT [facility] Active CYCLOBENZAPRINE HCL 10 MG TABS 1/2 tablet by mouth every 8 hours as needed for muscle spasms CYCLOBENZAPRINE HCL 04885584427 No Longer Active Alina Castaneda MD PhD Active BACTROBAN 2 % CREAM apply to ear and nose twice daily MUPIROCIN CALCIUM 54935982974 No Longer Active Alina Castaneda MD PhD Active HYDROCODONE-ACETAMINOPHEN 5-325 MG TABS take one tablet by mouth every four hours as needed for pain HYDROCODONE-ACETAMINOPHEN 68506046803 No Longer Active Alina Castaneda MD PhD Active ZOLPIDEM TARTRATE 10 MG TABS take at bedtime ZOLPIDEM TARTRATE 66287086243 Active Alina Castaneda MD PhD Active ZYPREXA 5 MG TABS take one tablet by mouth every evening OLANZAPINE 31089359858 No Longer Active Alina Castaneda MD PhD Active ALBUTEROL SULFATE 0.083 % NEBU SOLN one vial per nebulizer TID and PRN cough/ soa ALBUTEROL SULFATE 26600435517 No Longer Active Alina Castaneda MD PhD Active GUAIFENESIN 600 MG [id number]-KOR 1 tablet by mouth twice daily if needed for cough GUAIFENESIN 58495613811 No Longer Active Marvel MARROQUIN Active AZITHROMYCIN 500 MG SOLR 1 po q day AZITHROMYCIN 10644139811 No Longer Active Alina Castaneda MD PhD Active METOPROLOL SUCCINATE 100 MG [id number]-FTQ 1 by mouth daily for blood pressure METOPROLOL SUCCINATE 38199755975 Active Alina Castaneda MD PhD Active PROMETHAZINE-CODEINE 6.25-10 MG/5ML SYRP 1 tsp po q 6 hours prn cough PROMETHAZINE-CODEINE 76811641904 No Longer Active Alina Castaneda MD PhD Active CEFDINIR 300 MG CAPS by mouth twice a day CEFDINIR 86581528199 No Longer Active Alina Castaneda MD PhD Active METFORMIN HCL 500 MG ZA42I-SOS Take 3 tablets by mouth everyday METFORMIN HCL 98126046186 No Longer Active Alina Castaneda MD PhD Active LEVEMIR 100 UNIT/ML SOLN 90 units SQ qHS INSULIN DETEMIR 80310403510 No Longer Active Marvel MARROQUIN Active TOPROL XL 100 MG [id number]-CUH 1 @ HS METOPROLOL SUCCINATE 12220056434 No Longer Active Marvel MARROQUIN Active ALLOPURINOL 300 MG TABS Take one by mouth daily ALLOPURINOL 70450160062 Active Alina Castaneda MD PhD Active ZYPREXA 10 MG TABS Take one by mouth daily OLANZAPINE 78729782064 No Longer Active Alina Castaneda MD PhD Active NOVOLOG 100 UNIT/ML SOLN 40 units with every meal INSULIN ASPART 55234923910 No Longer Active Alina Castaneda MD PhD Active VERAPAMIL HCL CR 120 MG TAB CR 1 qPM VERAPAMIL HCL 44345139345 No Longer Active Salina Han RMA Active ZYPREXA 15 MG TABS Take 1 tablet by mouth daily OLANZAPINE 55842745124 No Longer Active Marvel Mackenzieanca MARROQUIN Active LISINOPRIL 20 MG TABS 1 BID LISINOPRIL 90039716446 Active Alina Castaneda MD PhD Active ALBUTEROL SULFATE (2.5 MG/3ML) 0.083% NEBU 1 neb tid and prn cough ALBUTEROL SULFATE 89645319607 No Longer Active Alina Castaneda MD PhD Active FLUVOXAMINE MALEATE 100 MG TABS Take one (1) tablet by mouth am, 1/2 at noon, 1 pm FLUVOXAMINE MALEATE 40511734428 Active Alina Castaneda MD PhD Active TRAVATAN Z 0.004 % SOLN 1 gtt each eye daily TRAVOPROST 78005872793 Active CRYSTAL Suarez Active LANTUS 100 UNIT/ML SOLN 60 units sq q hs INSULIN GLARGINE 28049549678 No Longer Active CRYSTAL Suarez Active ALBUTEROL SULFATE (2.5 MG/3ML) 0.083% NEBU 1 neb tid and prn cough ALBUTEROL SULFATE (2.5 MG/3ML) 0.083% NEBU 845670 ALBUTEROL SULFATE Inactive ZYPREXA 15 MG TABS Take 1 tablet by mouth daily ZYPREXA 15 MG TABS 808675 OLANZAPINE Inactive VERAPAMIL HCL CR 120 MG TAB CR 1 qPM VERAPAMIL HCL CR 120 MG TAB CR VERAPAMIL HCL Inactive ZYPREXA 10 MG TABS Take one by mouth daily ZYPREXA 10 MG TABS 896036 OLANZAPINE Inactive TOPROL XL 100 MG [id number] 1 @ HS TOPROL XL 100 MG QL52U-CVC METOPROLOL SUCCINATE Inactive LEVEMIR 100 UNIT/ML SOLN 90 units SQ qHS LEVEMIR 100 UNIT/ML SOLN INSULIN DETEMIR Inactive PROMETHAZINE-CODEINE 6.25-10 MG/5ML SYRP 1 tsp po q 6 hours prn cough PROMETHAZINE-CODEINE 6.25-10 MG/5ML SYRP 068197 PROMETHAZINE- CODEINE Inactive GUAIFENESIN 600 MG [id number]-CUG 1 tablet by mouth twice daily if needed for cough GUAIFENESIN 600 MG AL21P-ESC GUAIFENESIN Inactive ALBUTEROL SULFATE 0.083 % NEBU SOLN one vial per nebulizer TID and PRN cough/ soa ALBUTEROL SULFATE 0.083 % NEBU SOLN 689446 ALBUTEROL SULFATE Inactive ZYPREXA 5 MG TABS take one tablet by mouth every evening ZYPREXA 5 MG TABS 924474 OLANZAPINE Inactive HYDROCODONE-ACETAMINOPHEN 5-325 MG TABS take one tablet by mouth every four hours as needed for pain HYDROCODONE-ACETAMINOPHEN 5-325 MG TABS 337402 HYDROCODONE-ACETAMINOPHEN Inactive BACTROBAN 2 % CREAM apply to ear and nose twice daily BACTROBAN 2 % CREAM 046227 MUPIROCIN CALCIUM Inactive CYCLOBENZAPRINE HCL 10 MG TABS 1/2 tablet by mouth every 8 hours as needed for muscle spasms CYCLOBENZAPRINE HCL 10 MG TABS 088759 CYCLOBENZAPRINE HCL Inactive NAVANE 10 MG CAPS 1/2 tablet twice a day NAVANE 10 MG CAPS THIOTHIXENE Inactive DOXEPIN HCL 10 MG CAPS Take 1 tablet by mouth daily DOXEPIN HCL 10 MG CAPS 1805030 DOXEPIN HCL Inactive HYDROCODONE-ACETAMINOPHEN 7.5-325 MG TABS 1 four times a day as needed for pain HYDROCODONE-ACETAMINOPHEN 7.5-325 MG TABS 270036 HYDROCODONE-ACETAMINOPHEN Inactive NIACIN CR 500 MG CR-TABS 2 qHS NIACIN CR 500 MG CR- TABS NIACIN Inactive ORPHENADRINE CITRATE ER 100 MG AL69H-UIG 1 every 12 hr. as needed ORPHENADRINE CITRATE ER 100 MG [id number] ORPHENADRINE CITRATE Inactive ACETAMINOPHEN 500 MG TABS 2 Q 6 hr. PRN ACETAMINOPHEN 500 MG TABS 835323 ACETAMINOPHEN Inactive SAPHRIS 5 MG SUBL by mouth twice a day SAPHRIS 5 MG SUBL ASENAPINE MALEATE Inactive NIACIN ER 500 MG CR-TABS 4 qHS (for triglycerides) NIACIN ER 500 MG CR-TABS NIACIN Inactive IBUPROFEN 200 MG TABS 1 Q 6 hr. PRN IBUPROFEN 200 MG TABS 021323 IBUPROFEN Inactive FLUTICASONE PROPIONATE 50 MCG/ACT SUSP 2 sprays each nostril qDay x 30 days FLUTICASONE PROPIONATE 50 MCG/ACT SUSP 127853 FLUTICASONE PROPIONATE Inactive EQL TRUETEST TEST STRP Test blood sugar TID EQL TRUETEST TEST STRP GLUCOSE BLOOD Inactive TERESE CONTOUR TEST STRP monitor blood sugars 3x/day TERESE CONTOUR TEST STRP GLUCOSE BLOOD Inactive DETROL LA 4 MG [id number]-JLD Take 1 tablet by mouth daily DETROL LA 4 MG LF02L-AGP TOLTERODINE TARTRATE Inactive ZYPREXA 7.5 MG TABS 1 at HS ZYPREXA 7.5 MG TABS 653748 OLANZAPINE Inactive THIOTHIXENE 5 MG CAPS by mouth twice a day THIOTHIXENE 5 MG CAPS 791308 THIOTHIXENE Inactive UROXATRAL 10 MG XZ03M-VXO Take 1 tablet by mouth daily UROXATRAL 10 MG [id number]-QNE ALFUZOSIN HCL Inactive ACYCLOVIR 400 MG ORAL TABS 1 pill three times daily x 5 days, for cold sore outbreak ACYCLOVIR 400 MG ORAL TABS 320882 ACYCLOVIR Inactive TRUETEST TEST STRP check sugars 4x/day TRUETEST TEST STRP GLUCOSE BLOOD Inactive HUMALOG 100 UNIT/ML SOLN Take 20 units with breakfast, 10u with lunch and suppetr. HUMALOG 100 UNIT/ML SOLN INSULIN LISPRO ( HUMAN) Inactive CYCLOBENZAPRINE HCL 10 MG TABS 1 tablet by mouth three times daily, scheduled CYCLOBENZAPRINE HCL 10 MG TABS 276023 CYCLOBENZAPRINE HCL Inactive ACCU-CHEK ROSA INVITR STRP use strips with device to check blood sugars 3 times daily ACCU-CHEK ROSA INVITR STRP GLUCOSE BLOOD Inactive ACCU-CHEK ROSA UZMA Use device to check blood sugars ACCU-CHEK ROSA UZMA BLOOD GLUCOSE MONITORING SUPPL Inactive CEFDINIR 300 MG CAPS by mouth twice a day CEFDINIR 300 MG CAPS 137198 CEFDINIR Inactive AZITHROMYCIN 500 MG SOLR 1 po q day AZITHROMYCIN 500 MG SOLR 212866 AZITHROMYCIN Inactive AMOXICILLIN 500 MG CAPS 2 po BID x 10 days AMOXICILLIN 500 MG CAPS 954224 AMOXICILLIN Inactive PENICILLIN V POTASSIUM 500 MG TABS 1 pill by mouth three times daily PENICILLIN V POTASSIUM 500 MG TABS 811680 PENICILLIN V POTASSIUM Inactive Immunizations Vaccine Administration Date Value Standard [...] Fluvirin, Fluarix, Agriflu(>=18 yo)) Fluzone (>3 yrs.) [OBR210] Influenza, seasonal, injectable pneumococcal immunization administered Pneumovax 23 [CVX33] pneumococcal polysaccharide vaccine, 23 valent Vital Signs Date Name Value Unit Range Description blood pressure, diastolic - 8462-4 58 mm[Hg] [...] BP garcia blood pressure, systolic - 8480-6 110 mm[Hg] BP sys pulse rate E&M - 8867-4 80 /min Heart rate weight E&M - 3141-9 237 [lb_av] Weight Measured blood pressure, diastolic - 8462-4 62 mm[Hg] BP garcia blood pressure, systolic - 8480-6 133 mm[Hg] BP sys pulse rate E&M - 8867-4 94 /min Heart rate temperature E&M 98.9 [degF] Body temperature weight E&M - 3141-9 239 [lb_av] Weight Measured blood pressure, diastolic - 8462-4 72 mm[Hg] BP garcia blood pressure, systolic - 8480-6 131 mm[Hg] BP sys pulse rate E&M - 8867-4 80 /min Heart rate temperature E&M 96.8 [degF] Body temperature weight E&M - 3141-9 241.4 [lb_av] Weight Measured blood pressure, diastolic - 8462-4 70 mm[Hg] BP garcia blood pressure, systolic - 8480-6 140 mm[Hg] BP sys pulse rate E&M - 8867-4 84 /min Heart rate weight E&M - 3141-9 237 [lb_av] Weight Measured blood pressure, diastolic - 8462-4 68 mm[Hg] BP garcia blood pressure, systolic - 8480-6 118 mm[Hg] BP sys pulse rate E&M - 8867-4 75 /min Heart rate temperature E&M 97.8 [degF] Body temperature weight E&M - 3141-9 242 [lb_av] Weight Measured blood pressure, diastolic, second observation 70 mm[Hg] BP garcia blood pressure, diastolic, third observation 70 mm[Hg] BP garcia blood pressure, diastolic, fourth observation 75 mm[Hg] BP garcia blood pressure, diastolic, sitting 70 mm[Hg] BP garcia blood pressure, diastolic, standing 73 mm[Hg] BP garcia blood pressure, diastolic, supine, left arm 70 mm[Hg] BP garcia blood pressure, diastolic - 8462-4 68 mm[Hg] BP garcia blood pressure, systolic, second observation 100 mm[Hg] BP sys blood pressure, systolic, third observation 90 mm[Hg] BP sys blood pressure, systolic, fourth observation 140 mm[Hg] BP sys blood pressure, systolic, sitting 90 mm[Hg] BP sys blood pressure, systolic, standing 140 mm[Hg] BP sys blood pressure, systolic, supine, left arm 100 mm[Hg] BP sys blood pressure, systolic - 8480-6 140 mm[Hg] BP sys pulse rate E&M - 8867-4 66 /min Heart rate pulse rate #2 62 Heart rate pulse rate #3 73 Heart rate pulse rate #4 76 /min Heart rate pulse rate, sitting 73 /min Heart rate pulse rate, standing 76 /min Heart rate pulse rate, supine, left 62 /min Heart rate temperature E&M 98.3 [degF] Body temperature weight E&M - 3141-9 244 [lb_av] Weight Measured blood pressure, diastolic - 8462-4 72 mm[Hg] BP garcia blood pressure, systolic - 8480-6 120 mm[Hg] BP sys height E&M - 8302-2 70 [in_us] Bdy height pulse rate E&M - 8867-4 88 /min Heart rate weight E&M - 3141-9 240 [lb_av] Weight Measured blood pressure, diastolic - 8462-4 73 mm[Hg] BP garcia blood pressure, systolic - 8480-6 143 mm[Hg] BP sys height E&M - 8302-2 70 [in_us] Bdy height pulse rate E&M - 8867-4 88 /min Heart rate temperature E&M 98.9 [degF] Body temperature weight E&M - 3141-9 243 [lb_av] Weight Measured blood pressure, diastolic - 8462-4 72 mm[Hg] BP garcia blood pressure, systolic - 8480-6 129 mm[Hg] BP sys height E&M - 8302-2 70 [in_us] Bdy height pulse rate E&M - 8867-4 83 /min Heart rate temperature E&M 98.0 [degF] Body temperature weight E&M - 3141-9 243 [lb_av] Weight Measured blood pressure, diastolic - 8462-4 50 mm[Hg] BP garcia blood pressure, systolic - 8480-6 122 mm[Hg] BP sys pulse rate E&M - 8867-4 80 /min Heart rate Diagnostic Results Date Name Value Unit Range Description Lab Report: Basic Metabolic Panel, HGBA1C - Chemistry sodium, serum 130 mmol/L 934-625 3144/06/09 potassium, serum 4.0 mmol/L 3.5-5.2 chloride, serum 92 mmol/L 98-107 carbon dioxide, venous blood 22.1 mmol/L 21.0-32.0 blood glucose 60 mg/dL 65-110 calcium, serum 9.5 mg/dL 8.5-10.1 urea nitrogen, blood 14 mg/dL 7-18 creatinine, serum 1.30 mg/dL 0.60-1.30 hemoglobin A1C, blood, as % of total hemoglobin 6.0 % 4.3-6.0 sodium, serum 131 mmol/L 582-817 3600/12/30 potassium, serum 5.0 mmol/L 3.5-5.2 chloride, serum 95 mmol/L 98-107 carbon dioxide, venous blood 26.7 mmol/L 21.0-32.0 blood glucose 112 mg/dL 65-110 calcium, serum 9.2 mg/dL 8.5-10.1 urea nitrogen, blood 12 mg/dL 7-18 creatinine, serum 1.10 mg/dL 0.60-1.30 hemoglobin A1C, blood, as % of total hemoglobin 5.8 % 4.3-6.0 Lab Report: Comp. Metabolic Panel - Chemistry sodium, serum 127 mmol/L 390-611 3647/10/27 potassium, serum 4.1 mmol/L 3.5-5.2 chloride, serum 89 mmol/L 98-107 carbon dioxide, venous blood 27.4 mmol/L 21.0-32.0 blood glucose 100 mg/dL 65-110 urea nitrogen, blood 11 mg/dL 7-18 creatinine, serum 1.10 mg/dL 0.60-1.30 alanine aminotransferase (SGPT), serum 79 U/L 12-78 aspartate aminotransferase (SGOT), serum 38 U/L 15-37 alkaline phosphatase, serum 54 U/L 50-136 calcium, serum 9.0 mg/dL 8.5-10.1 bilirubin, serum, total 0.40 mg/dL 0.00-1.00 Lab Report: HGBA1C - Chemistry hemoglobin A1C, blood, as % of total hemoglobin 6.3 % 4.3-6.0 Office Visit: Diabetes Visit - Chemistry cholesterol, target level 200 mg/dL triglyceride, target level 200 mg/dL HDL cholesterol, serum, target level 35 mg/dL LDL target level 100 mg/dL cholesterol, target level 200 mg/dL triglyceride, target level 200 mg/dL HDL cholesterol, serum, target level 35 mg/dL LDL target level 100 mg/dL cholesterol, target level 200 mg/dL triglyceride, target level 200 mg/dL HDL cholesterol, serum, target level 35 mg/dL LDL target level 100 mg/dL cholesterol, target level 200 mg/dL triglyceride, target level 200 mg/dL HDL cholesterol, serum, target level 35 mg/dL LDL target level 100 mg/dL Encounters Code Encounter Date Provider Facility CPT-[id number] Level 3 Est. Patient 09:26:40 CDT Marvel Charles [facility] CPT-80791 Level 3 Est. Patient 12:36:43 CDT Vanessa Hickey MD [facility]-97044 Level 3 Est. Patient 12:57:49 CDT Vanessa Hickey MD [facility]-55279 Level 3 Est. Patient 00:28:25 CDT Alina Castaneda MD [facility] CPT-66392 Level 2 Est. Patient 12:52:14 CDT Alina Castaneda MD PhD [facility]-12115 Level 3 Est. Patient 11:51:18 DENTAL TECHNICIAN Alina Castaneda MD PhD [facility] CPT-82794 Level 3 Est. Patient 10:09:22 DENTAL TECHNICIAN Alina Castaneda MD [facility] CPT-83926 Level 3 Est. Patient 14:36:26 DENTAL TECHNICIAN Marvel Charles [facility] CPT-36277 Level 3 Est. Patient 13:34:47 DENTAL TECHNICIAN Alina Castaneda MD PhD [facility] CPT-88142 Level 3 Est. Patient 19:52:08 DENTAL TECHNICIAN Alina Castaneda MD PhD [facility]-28599 Level 3 Est. Patient 10:01:51 DENTAL TECHNICIAN Marvel Charles [facility] CPT-94698 Level 3 Est. Patient 21:54:06 CDT Vanessa Hickey MD [facility]-37572 Level 3 Est. Patient 08:54:46 CDT Alina Castaneda MD [facility]-72017 Level 3 Est. Patient 09:32:11 CDT Zainnivia Araceli [facility]-34713 Level 3 Est. Patient 12:02:49 CDT Alina Castaneda MD [facility]26286 Level 3 Est. Patient 19:17:33 CDT Alina Castaneda MD [facility]23250 Level 3 Est. Patient 13:19:10 CDT Zainnivia Araceli [facility]-74179 Level 3 Est. Patient 08:20:05 CDT Alina Castaneda MD [facility]-03206 Level 3 Est. Patient 15:17:18 CDT Alina Castaneda MD [facility]47572 Level 3 Est. Patient 14:25:36 DENTAL TECHNICIAN Marvel Araceli [facility]-78039 Level 3 Est. Patient 10:09:15 DENTAL TECHNICIAN Marvel Araceli [facility]-82870 Level 3 Est. Patient 21:28:43 CDT Alina Castaneda MD [facility]-61063 Level 3 Est. Patient 15:20:11 CDT Marvel Charles [facility]-08263 Level 4 Est. Patient 19:08:12 CDT Alina Castaneda MD [facility]26350 Level 3 Est. Patient 15:06:39 CDT Marvel Charles [facility]-03679 Level 4 Est. Patient 17:48:15 CDT Alina Castaneda MD [facility]-09188 Level 3 Est. Patient 14:53:49 CDT Alina Castaneda MD [facility]-45036 Level 3 Est. Patient 09:35:16 CDT Alina Castaneda MD [facility]-42423 Level 3 Est. Patient 12:23:22 CDT Alina Castaneda MD [facility]-86200 Level 3 Est. Patient 16:19:15 CDT Alina Castaneda MD [facility]-71600 Level 3 Est. Patient 21:39:56 DENTAL TECHNICIAN Alina Castaneda MD [facility]-92324 Level 4 Est. Patient 14:12:56 DENTAL TECHNICIAN Alina Castaneda MD [facility]-69918 Level 2 Est. Patient 15:34:57 DENTAL TECHNICIAN Alina Castaneda MD [facility]-20948 Level 3 Est. Patient 12:17:04 DENTAL TECHNICIAN Alina Castaneda MD [facility]-24942 Level 3 Est. Patient 09:18:18 DENTAL TECHNICIAN Marvel Charles [facility]-44995 Level 2 Est. Patient 21:50:24 CDT Alina Castaneda MD [facility]-46942 Level 3 Est. Patient 09:17:28 CDT Marvel Charles [facility]-28712 Level 4 Est. Patient 18:54:02 CDT Alina Castaneda MD [facility]80984 Level 3 Est. Patient 10:47:10 CDT Alina Castaneda MD [facility]-85039 Level 3 Est. Patient 09:22:20 CDT Maliheh Ziglari [facility] CPT-67436 Level 3 Est. Patient 16:39:43 CDT Marvel Charles [facility] CPT-19539 Level 3 Est. Patient 16:05:16 CDT Alina Castaneda MD [facility] CPT-70812 Level 3 Est. Patient 00:29:15 CDT Alina Castaneda MD [facility] CPT-86202 Level 3 Est. Patient 10:49:22 DENTAL TECHNICIAN Marvel Thurstonestela [facility] CPT-43608 Level 3 Est. Patient 21:30:19 DENTAL TECHNICIAN Alina Castaneda MD [facility] CPT-44459 Level 4 Est. Patient 17:04:11 DENTAL TECHNICIAN [facility] CPT-81716 Level 3 Est. Patient 15:34:11 [facility]AL [facility]CHNICIAN [facility] 2 Est. Patient 12:51:58 DENTAL TECHNICIAN Alina Castaneda MD [facility] CPT-09431 Level 3 Est. Patient 13:20:01 DENTAL TECHNICIAN Alina Castaneda MD [facility] CPT-15366 Level 3 Est. Patient 09:23:35 CDT Alina Castaneda MD [facility] Procedures Code Procedure Name Date Entry Date Standard Description CPT-80679 Bladder Scan 12:36:44 CDT CPT-94368 Bladder Scan 21:54:06 CDT CPT-G0008 Administration of Influenza Virus Vaccine 13:05:26 CDT CPT-08786 Fluzone Quadrivalent Intramuscular Suspension 0.5 ML 13: 05:26 CDT CPT-20568 Administration single or combination vaccine inc oral 11 :49:51 CDT CPT-27937 Pneumovax 11:49:51 CDT CPT-04269 Ribs unilateral 2V 12:37:22 DENTAL TECHNICIAN CPT-95495 Chest 2V Frontal and Lat 17:15:26 CDT CPT-60773 Abx/Therapy Injection 18:54:02 CDT CPT-J0696 Rocephin 1000 mg (Ceftriaxone) 16:00:32 CDT CPT-06195 Chest 2V Frontal and Lat 15:26:45 CDT CPT-67944 Chest 2V Frontal and Lat 10:23:27 CDT CPT-07837 Venipuncture Draw Fee 10:11:00 CDT CPT-80094 Administration single or combination vaccine inc oral 11 :56:38 CDT CPT-90269 Influenza split virus > age 3 11:56:38 CDT CPT-20602 Venipuncture Draw Fee 08:49:54 DENTAL TECHNICIAN CPT-79360 EKG Trac and Interp 17:54:19 DENTAL TECHNICIAN
--- OUTSIDE RECORDS SUMMARY | 2018-07-02 13:18 | XMS REPORT | Clinical Summary ---
Author Author Admin, TERELL Organization [facility] Address Unknown Phone Unavailable Allergies, Adverse [...] or unspecified type, uncontrolled PALPITATIONS 785.1 Active Alnia Castaneda MD PhD Palpitations UNSPECIFIED TACHYCARDIA 785.0 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 Erazo WEB APPLICATION TESTER Benign paroxysmal positional vertigo Vertigo, benign paroxysmal position 386.11 Inactive Mima Erazo WE[employer] APPLICATION TESTER Benign paroxysmal positional vertigo High-risk sexual behavior V69.2 Active Alina Castaneda MD PhD High-risk sexual behavior Erectile dysfunction 302.72 Active Alina Castaneda MD PhD Psychosexual dysfunction with inhibited sexual excitement Constipation 564.00 Active Alina Castaneda MD PhD Constipation, unspecified Skin lesion 709.9 Active Alina Castaneda MD PhD Unspecified disorder of skin and subcutaneous tissue Malaise and fatigue 780.79 Active Cherelle Speaks WEB APPLICATION TESTER Other malaise and fatigue Diarrhea 787.91 Active Cherelle Speaks WEB APPLICATION TESTER Diarrhea PHARYNGITIS 462 Active Cherelle Speaks WEB APPLICATION TESTER Acute pharyngitis Colitis 558.9 Active Mima Erazo WEB APPLICATION TESTER Other and unspecified noninfectious gastroenteritis and colitis WOUND, OPEN, NOSE ICD-873.20 Inactive Alina Castaneda MD PhD DIABETES, TYPE 2 ICD-250.00 Inactive Alina Castaneda MD PhD HYPERTENSION ICD-401.9 Inactive Alina Castaneda MD PhD URI ICD-465.9 Inactive Alina Castaneda MD PhD CHEST PAIN ICD-786.50 Inactive Alina Castaneda MD PhD FH STROKE ICD-V17.1 Inactive Marvel Charles YEAST SUPERVISOR FATIGUE ICD-780.79 Inactive Alina Castaneda MD PhD [...] Generic Name NDC Status Provider Patient Instruction TRUEPLUS LANCETS 30G MISC 3 a day LANCETS 28485892040 Active Marvel MARROQUIN Active TOLTERODINE TARTRATE 2 MG TABS 1 pill twice daily, for bladder TOLTERODINE TARTRATE 04794225505 No Longer Active Vanessa Hickey MD Active AMITIZA 24 MCG ORAL CAPS Take one capsule BID for constipation. LUBIPROSTONE 32334148487 No Longer Active Vanessa Hickey MD Active LOMOTIL 2.5-0.025 MG ORAL TABS take 1-2 tabs PO after each stool, no more than 8 in 24 hours DIPHENOXYLATE-ATROPINE 84989652115 Active Grace ROJAS Active FLUVOXAMINE MALEATE 100 MG ORAL TABS take one tab every AM et HS, and take 1/ 2 tab at noon FLUVOXAMINE MALEATE 92553565406 Active Grace ROJAS Active METOPROLOL SUCCINATE 100 MG [id number] 1 by mouth daily for blood pressure METOPROLOL SUCCINATE 12928922224 No Longer Active Grace ROJAS Active METFORMIN HCL ER 500 MG [id number]-LUW Take three tablets by mouth everyday METFORMIN HCL 81639224534 No Longer Active Grace Azam RMA Active LOVAZA 1 GM CAPS 4 daily (for triglycerides) OMEGA-3- ACID ETHYL ESTERS 71068541505 No Longer Active Grace Azam RMA Active TRAZODONE HCL 100 MG ORAL TABS 1 tab by mouth for sleep TRAZODONE HCL 36630524176 No Longer Active Grace Azam RMA Active NOVOFINE 32G X 6 MM MISC use one four times per day INSULIN PEN NEEDLE 06178724934 No Longer Active Grace Azam RMA Active BACTROBAN 2 % CREAM Apply to affected area BID for up to 10 days MUPIROCIN CALCIUM 13809591575 No Longer Active Grace Azam RMA Active ZOFRAN 4 MG TABS 1 po q4hr PRN [place]ause[place] ONDANSETRON HCL 80625399504 Active Salina Emely RMA Active KEFLEX 500 MG CAP 1 po BID x 7 days CEPHALEXIN 87611400774 No Longer Active Cherelle Felixs WEB APPLICATION TESTER Active FLUVOXAMINE MALEATE 100 MG TABS Take one (1) tablet by mouth am, 1/2 at noon FLUVOXAMINE MALEATE 92217492815 No Longer Active Mima Erazo APRN Active CORICIDIN HBP CONGESTION/COUGH 10-200 MG ORAL CAPS Take as directed on box as needed for cold/flu symptoms DEXTROMETHORPHAN-GUAIFENESIN 94814952303 Active Cherelle Speaks WEB APPLICATION TESTER Active OMEGA-3 300 MG ORAL CAPS 4 caps by mouth daily OMEGA-3 FATTY ACIDS 78337871358 Active Cherelle Speaks WEB APPLICATION TESTER Active FLUVOXAMINE MALEATE 100 MG ORAL TABS Take 1/2 tab at noon FLUVOXAMINE MALEATE 59750331310 No Longer Active Cherelle Speaks WEB APPLICATION TESTER Active [facility] LUBRICANT EYE DROPS 0.4-0.3 % OPHTH SOLN POLYETHYL GLYCOL-PROPYL GLYCOL 90278469016 Active Mima Yokum WEB APPLICATION TESTER Active CLONAZEPAM 1 MG TABS 1/2 pill by mouth three times daily CLONAZEPAM 64607873849 Active Alina Castaneda MD PhD Active MIRALAX POWD 17g by mouth daily, for constipation POLYETHYLENE GLYCOL 3350 86649079023 Active Alina Castaneda MD PhD Active HYDROCODONE-ACETAMINOPHEN 5-325 MG TABS 2 tabs by mouth three times daily for pain HYDROCODONE-ACETAMINOPHEN 94140481491 Active Mima Erazo WEB APPLICATION TESTER Active HUMALOG KWIKPEN 100 UNIT/ML SC SOPN 20 units with breakfast, 10 units with lunch, 10 units with dinner, for diabetes INSULIN LISPRO (HUMAN ) 69822863087 Active Alina Castaneda MD PhD Active LEVEMIR FLEXTOUCH 100 UNIT/ML SC SOPN 70 units SQ each evening, for diabetes INSULIN DETEMIR 00997039812 Active Mima Erazo WEB APPLICATION TESTER Active LATUDA 120 MG ORAL TABS 1 pill by mouth nightly LURASIDONE HCL 97542173102 Active Alina Castaneda MD PhD Active COLACE 100 MG CAPS 1 pill by mouth twice daily, for constipation DOCUSATE SODIUM 52002635525 Active Alina Castaneda MD PhD Active TRUETEST TEST STRP check blood sugars 3x/day GLUCOSE BLOOD 37854380059 Active Marvel MENDOZAP Active ACCU-CHEK ROSA UZMA Use device to check blood sugars BLOOD GLUCOSE MONITORING SUPPL 29624673989 No Longer Active Marvel MARROQUIN Active ACCU-CHEK ROSA INVITR STRP use strips with device to check blood sugars 3 times daily GLUCOSE BLOOD 18897830080 No Longer Active Marvel MENDOZAP Active VERAPAMIL HCL ER 180 MG ORAL CR-TABS 1 pill by mouth twice daily, for migraine prevention VERAPAMIL HCL 61400376794 Active Alina Castaneda MD PhD Active CYCLOBENZAPRINE HCL 10 MG TABS 1 tablet by mouth three times daily, scheduled CYCLOBENZAPRINE HCL 29702196033 No Longer Active Alina Castaneda MD PhD Active HUMALOG 100 UNIT/ML SOLN Take 20 units with breakfast, 10u with lunch and suppetr. INSULIN LISPRO (HUMAN) 10559736128 No Longer Active Alina Castaneda MD PhD Active TRUETEST TEST STRP check sugars 4x/day GLUCOSE BLOOD 16381577761 No Longer Active Alina Castaneda MD PhD Active MORPHINE SULFATE 30 MG TABS 1 pill by mouth twice daily, for pain MORPHINE SULFATE 23442269387 Active Mima Erazo WEB APPLICATION TESTER Active ACYCLOVIR 400 MG ORAL TABS 1 pill three times daily x 5 days, for cold sore outbreak ACYCLOVIR 53923667003 No Longer Active Alina Castaneda MD PhD Active PENICILLIN V POTASSIUM 500 MG TABS 1 pill by mouth three times daily PENICILLIN V POTASSIUM 22521680233 No Longer Active Alina Castaneda MD PhD Active UROXATRAL 10 MG [id number]-IUV Take 1 tablet by mouth daily ALFUZOSIN HCL 22117940181 No Longer Active Alina Castaneda MD PhD Active THIOTHIXENE 5 MG CAPS by mouth twice a day THIOTHIXENE 21630461559 No Longer Active Alina Castaneda MD PhD Active ZYPREXA 7.5 MG TABS 1 at HS OLANZAPINE 95407168115 No Longer Active Alina Castaneda MD PhD Active BD INSULIN SYRINGE 28G X 1/2" 1 ML MISC 1 four times per day INSULIN SYRINGE-NEEDLE U-100 88214585885 Active [facility] Gurdeepglestela [facility] Active DETROL LA 4 MG HB49F-XMH Take 1 tablet by mouth daily TOLTERODINE TARTRATE 83224679025 No Longer Active Alina Castaneda MD PhD Active TERESE CONTOUR TEST STRP monitor blood sugars 3x/day GLUCOSE BLOOD 52788976107 No Longer Active Alina Castaneda MD PhD Active EQL TRUETEST TEST STRP Test blood sugar TID GLUCOSE BLOOD 42969962167 No Longer Active Alina Castaneda MD PhD Active FLUTICASONE PROPIONATE 50 MCG/ACT SUSP 2 sprays each nostril qDay x 30 days FLUTICASONE PROPIONATE 65941141869 No Longer Active Alina Castaneda MD PhD Active IBUPROFEN 200 MG TABS 1 Q 6 hr. PRN IBUPROFEN 74172531090 No Longer Active Alina Castaneda MD PhD Active NIACIN ER 500 MG CR-TABS 4 qHS (for triglycerides) NIACIN 01535213589 No Longer Active Alina Castaneda MD PhD Active ALFUZOSIN HCL ER 10 MG HW12W-BFP 1 tablet daily ALFUZOSIN HCL 09432762419 Active Vanessa Hickey MD Active SAPHRIS 5 MG SUBL by mouth twice a day ASENAPINE MALEATE 42040604373 No Longer Active Mallashondaeh Ziglari YEAST SUPERVISOR Active ACETAMINOPHEN 500 MG TABS 2 Q 6 hr. PRN ACETAMINOPHEN 48524753463 No Longer Active Maliheh Ziglari YEAST SUPERVISOR Active ORPHENADRINE CITRATE ER 100 MG GW01H-VMF 1 every 12 hr. as needed ORPHENADRINE CITRATE 10899603908 No Longer Active Alina Castaneda MD PhD Active NIACIN CR 500 MG CR-TABS 2 qHS NIACIN 89706207389 No Longer Active Alina Castaneda MD PhD Active AMOXICILLIN 500 MG CAPS 2 po BID x 10 days AMOXICILLIN 40739256285 No Longer Active Alina Castaneda MD PhD Active HYDROCODONE-ACETAMINOPHEN 7.5-325 MG TABS 1 four times a day as needed for pain HYDROCODONE-ACETAMINOPHEN 56759828598 No Longer Active Alina Castaneda MD PhD Active DOXEPIN HCL 10 MG CAPS Take 1 tablet by mouth daily DOXEPIN HCL 84179464833 No Longer Active Salina ROJAS Active NAVANE 10 MG CAPS 1/2 tablet twice a day THIOTHIXENE No Longer Active Salina ROJAS Active CYCLOBENZAPRINE HCL 10 MG TABS 1/2 tablet by mouth every 8 hours as needed for muscle spasms CYCLOBENZAPRINE HCL 08522547533 No Longer Active Alina Castaneda MD PhD Active BACTROBAN 2 % CREAM apply to ear and nose twice daily MUPIROCIN CALCIUM 24086786974 No Longer Active Alina Castaneda MD PhD Active HYDROCODONE-ACETAMINOPHEN 5-325 MG TABS take one tablet by mouth every four hours as needed for pain HYDROCODONE-ACETAMINOPHEN 40265979821 No Longer Active Alina Castaneda MD PhD Active ZOLPIDEM TARTRATE 10 MG TABS take at bedtime ZOLPIDEM TARTRATE 14452555274 Active Alina Castaneda MD PhD Active ZYPREXA 5 MG TABS take one tablet by mouth every evening OLANZAPINE 19126024763 No Longer Active Alina Castaneda MD PhD Active ALBUTEROL SULFATE 0.083 % NEBU SOLN one vial per nebulizer TID and PRN cough/ soa ALBUTEROL SULFATE 97705974958 No Longer Active Alina Castaneda MD PhD Active GUAIFENESIN 600 MG AR74A-IAK 1 tablet by mouth twice daily if needed for cough GUAIFENESIN 34875194471 No Longer Active Marvel MARROQUIN Active AZITHROMYCIN 500 MG SOLR 1 po q day AZITHROMYCIN 77498163222 No Longer Active Alina Castaneda MD PhD Active PROMETHAZINE-CODEINE 6.25-10 MG/5ML SYRP 1 tsp po q 6 hours prn cough PROMETHAZINE-CODEINE 94128847322 No Longer Active Alina Castaneda MD PhD Active CEFDINIR 300 MG CAPS by mouth twice a day CEFDINIR 46256154237 No Longer Active Alina Castaneda MD PhD Active METFORMIN HCL 500 MG [id number]-IBM Take 3 tablets by mouth everyday METFORMIN HCL 39330842224 No Longer Active Alina Castaneda MD PhD Active LEVEMIR 100 UNIT/ML SOLN 90 units SQ qHS INSULIN DETEMIR 45347668215 No Longer Active Marvel MARROQUIN Active TOPROL XL 100 MG OR74T-HRC 1 @ HS METOPROLOL SUCCINATE 48685733361 No Longer Active Marvel MARROQUIN Active ALLOPURINOL 300 MG TABS Take one by mouth daily ALLOPURINOL 52015377227 Active Alina Castaneda MD PhD Active ZYPREXA 10 MG TABS Take one by mouth daily OLANZAPINE 92580991951 No Longer Active Alina Castaneda MD PhD Active NOVOLOG 100 UNIT/ML SOLN 40 units with every meal INSULIN ASPART 27036524135 No Longer Active Alina Castaneda MD PhD Active VERAPAMIL HCL CR 120 MG TAB CR 1 qPM VERAPAMIL HCL 93806955846 No Longer Active Salina ROJAS Active ZYPREXA 15 MG TABS Take 1 tablet by mouth daily OLANZAPINE 23919936397 No Longer Active Marvel MARROQUIN Active LISINOPRIL 20 MG TABS 1 BID LISINOPRIL 72088286866 Active Alina Castaneda MD PhD Active ALBUTEROL SULFATE (2.5 MG/3ML) 0.083% NEBU 1 neb tid and prn cough ALBUTEROL SULFATE 16266032483 No Longer Active Alina Castaneda MD PhD Active TRAVATAN Z 0.004 % SOLN 1 gtt each eye daily TRAVOPROST 05176893374 Active CRYSTAL Suarez Active LANTUS 100 UNIT/ML SOLN 60 units sq q hs INSULIN GLARGINE 60473269700 No Longer Active CRYSTAL Suarez Active ALBUTEROL SULFATE (2.5 MG/3ML) 0.083% NEBU 1 neb tid and prn cough ALBUTEROL SULFATE (2.5 MG/3ML) 0.083% NEBU 985241 ALBUTEROL SULFATE Inactive ZYPREXA 15 MG TABS Take 1 tablet by mouth daily ZYPREXA 15 MG TABS 095265 OLANZAPINE Inactive VERAPAMIL HCL CR 120 MG TAB CR 1 qPM VERAPAMIL HCL CR 120 MG TAB CR VERAPAMIL HCL Inactive ZYPREXA 10 MG TABS Take one by mouth daily ZYPREXA 10 MG TABS 734148 OLANZAPINE Inactive TOPROL XL 100 MG [id number]-IEX 1 @ HS TOPROL XL 100 MG ZA12X-PFL METOPROLOL SUCCINATE Inactive LEVEMIR 100 UNIT/ML SOLN 90 units SQ qHS LEVEMIR 100 UNIT/ML SOLN INSULIN DETEMIR Inactive PROMETHAZINE-CODEINE 6.25-10 MG/5ML SYRP 1 tsp po q 6 hours prn cough PROMETHAZINE-CODEINE 6.25-10 MG/5ML SYRP 484502 PROMETHAZINE- CODEINE Inactive GUAIFENESIN 600 MG UM45H-QML 1 tablet by mouth twice daily if needed for cough GUAIFENESIN 600 MG TQ30M-EEI GUAIFENESIN Inactive ALBUTEROL SULFATE 0.083 % NEBU SOLN one vial per nebulizer TID and PRN cough/ soa ALBUTEROL SULFATE 0.083 % NEBU SOLN 580719 ALBUTEROL SULFATE Inactive ZYPREXA 5 MG TABS take one tablet by mouth every evening ZYPREXA 5 MG TABS 534960 OLANZAPINE Inactive HYDROCODONE-ACETAMINOPHEN 5-325 MG TABS take one tablet by mouth every four hours as needed for pain HYDROCODONE-ACETAMINOPHEN 5-325 MG TABS 208225 HYDROCODONE-ACETAMINOPHEN Inactive BACTROBAN 2 % CREAM apply to ear and nose twice daily BACTROBAN 2 % CREAM 246257 MUPIROCIN CALCIUM Inactive CYCLOBENZAPRINE HCL 10 MG TABS 1/2 tablet by mouth every 8 hours as needed for muscle spasms CYCLOBENZAPRINE HCL 10 MG TABS 238569 CYCLOBENZAPRINE HCL Inactive NAVANE 10 MG CAPS 1/2 tablet twice a day NAVANE 10 MG CAPS THIOTHIXENE Inactive DOXEPIN HCL 10 MG CAPS Take 1 tablet by mouth daily DOXEPIN HCL 10 MG CAPS 0079921 DOXEPIN HCL Inactive HYDROCODONE-ACETAMINOPHEN 7.5-325 MG TABS 1 four times a day as needed for pain HYDROCODONE-ACETAMINOPHEN 7.5-325 MG TABS 960037 HYDROCODONE-ACETAMINOPHEN Inactive NIACIN CR 500 MG CR-TABS 2 qHS NIACIN CR 500 MG CR- TABS NIACIN Inactive ORPHENADRINE CITRATE ER 100 MG QP12Z-UEN 1 every 12 hr. as needed ORPHENADRINE CITRATE ER 100 MG [id number]-JJG ORPHENADRINE CITRATE Inactive ACETAMINOPHEN 500 MG TABS 2 Q 6 hr. PRN ACETAMINOPHEN 500 MG TABS 031729 ACETAMINOPHEN Inactive SAPHRIS 5 MG SUBL by mouth twice a day SAPHRIS 5 MG SUBL ASENAPINE MALEATE Inactive NIACIN ER 500 MG CR-TABS 4 qHS (for triglycerides) NIACIN ER 500 MG CR-TABS NIACIN Inactive IBUPROFEN 200 MG TABS 1 Q 6 hr. PRN IBUPROFEN 200 MG TABS 275853 IBUPROFEN Inactive FLUTICASONE PROPIONATE 50 MCG/ACT SUSP 2 sprays each nostril qDay x 30 days FLUTICASONE PROPIONATE 50 MCG/ACT SUSP 037180 FLUTICASONE PROPIONATE Inactive EQL TRUETEST TEST STRP Test blood sugar TID EQL TRUETEST TEST STRP GLUCOSE BLOOD Inactive TERESE CONTOUR TEST STRP monitor blood sugars 3x/day TERESE CONTOUR TEST STRP GLUCOSE BLOOD Inactive DETROL LA 4 MG VU66U-MHM Take 1 tablet by mouth daily DETROL LA 4 MG PV90X-SYZ TOLTERODINE TARTRATE Inactive ZYPREXA 7.5 MG TABS 1 at HS ZYPREXA 7.5 MG TABS 352469 OLANZAPINE Inactive THIOTHIXENE 5 MG CAPS by mouth twice a day THIOTHIXENE 5 MG CAPS 133100 THIOTHIXENE Inactive UROXATRAL 10 MG [id number]-YXL Take 1 tablet by mouth daily UROXATRAL 10 MG WP05O-YRH ALFUZOSIN HCL Inactive ACYCLOVIR 400 MG ORAL TABS 1 pill three times daily x 5 days, for cold sore outbreak ACYCLOVIR 400 MG ORAL TABS 080091 ACYCLOVIR Inactive TRUETEST TEST STRP check sugars 4x/day TRUETEST TEST STRP GLUCOSE BLOOD Inactive HUMALOG 100 UNIT/ML SOLN Take 20 units with breakfast, 10u with lunch and suppetr. HUMALOG 100 UNIT/ML SOLN INSULIN LISPRO ( HUMAN) Inactive CYCLOBENZAPRINE HCL 10 MG TABS 1 tablet by mouth three times daily, scheduled CYCLOBENZAPRINE HCL 10 MG TABS 493720 CYCLOBENZAPRINE HCL Inactive ACCU-CHEK ROSA INVITR STRP use strips with device to check blood sugars 3 times daily ACCU-CHEK ROSA INVITR STRP GLUCOSE BLOOD Inactive ACCU-CHEK ROSA UZMA Use device to check blood sugars ACCU-CHEK ROSA UZMA BLOOD GLUCOSE MONITORING SUPPL Inactive FLUVOXAMINE MALEATE 100 MG ORAL TABS Take 1/2 tab at noon FLUVOXAMINE MALEATE 100 MG ORAL TABS 541329 FLUVOXAMINE MALEATE Inactive FLUVOXAMINE MALEATE 100 MG TABS Take one (1) tablet by mouth am, 1/2 at noon FLUVOXAMINE MALEATE 100 MG TABS 682720 FLUVOXAMINE MALEATE Inactive BACTROBAN 2 % CREAM Apply to affected area BID for up to 10 days BACTROBAN 2 % CREAM 050402 MUPIROCIN CALCIUM Inactive NOVOFINE 32G X 6 MM MISC use one four times per day NOVOFINE 32G X 6 MM MISC INSULIN PEN NEEDLE Inactive TRAZODONE HCL 100 MG ORAL TABS 1 tab by mouth for sleep TRAZODONE HCL 100 MG ORAL TABS 436131 TRAZODONE HCL Inactive LOVAZA 1 GM CAPS 4 daily (for triglycerides) LOVAZA 1 GM CAPS 235808 FYCGB-3-AWMN ETHYL ESTERS Inactive METFORMIN HCL ER 500 MG VW04K-XPN Take three tablets by mouth everyday METFORMIN HCL ER 500 MG OA80W-PDK METFORMIN HCL Inactive METOPROLOL SUCCINATE 100 MG XO41Y-DBN 1 by mouth daily for blood pressure METOPROLOL SUCCINATE 100 MG RD49D-XVF METOPROLOL SUCCINATE Inactive AMITIZA 24 MCG ORAL CAPS Take one capsule BID for constipation. AMITIZA 24 MCG ORAL CAPS LUBIPROSTONE Inactive TOLTERODINE TARTRATE 2 MG TABS 1 pill twice daily, for bladder TOLTERODINE TARTRATE 2 MG TABS 532550 TOLTERODINE TARTRATE Inactive CEFDINIR 300 MG CAPS by mouth twice a day CEFDINIR 300 MG CAPS 055209 CEFDINIR Inactive AZITHROMYCIN 500 MG SOLR 1 po q day AZITHROMYCIN 500 MG SOLR 93975080676 AZITHROMYCIN Inactive AMOXICILLIN 500 MG CAPS 2 po BID x 10 days AMOXICILLIN 500 MG CAPS 458095 AMOXICILLIN Inactive PENICILLIN V POTASSIUM 500 MG TABS 1 pill by mouth three times daily PENICILLIN V POTASSIUM 500 MG TABS 127914 PENICILLIN V POTASSIUM Inactive KEFLEX 500 MG CAP 1 po BID x 7 days KEFLEX 500 MG CAP 932465 CEPHALEXIN Inactive Immunizations Vaccine Administration Date Value [...] Fluvirin, Fluarix, Agriflu(>=18 yo)) Fluzone (>3 yrs.) [[id number]] Influenza, seasonal, injectable pneumococcal immunization administered Pneumovax [...] E&M - 3141-9 237 [lb_av] Weight Measured Diagnostic Results Date Name Value Unit Range Description Lab Report: Basic Metabolic Panel, HGBA1C, MICROALBUMIN - Chemistry sodium, serum 137 mmol/L 560-829 2108/05/19 potassium, serum 5.2 mmol/L 3.5-5.2 chloride, serum [...] Panel - Chemistry sodium, serum 137 mmol/L 930-357 7834/10/12 potassium, serum 4.8 mmol/L 3.5-5.2 chloride, serum 102 mmol/L 98-107 carbon dioxide, venous blood 27.6 mmol/L 21.0-32.0 blood glucose 168 mg/dL 65-110 calcium, serum 9.0 mg/dL 8.5-10.1 urea nitrogen, blood 15 mg/dL 7-18 creatinine, serum 1.04 mg/dL 0.55-1.30 sodium, serum 138 mmol/L 929-494 9977/11/11 potassium, serum 4.7 mmol/L 3.5-5.2 chloride, serum [...] % 11.6-14.8 platelet count 252 10^3/MM^3 10*3/mm3 965-939 4374/10/12 leukocyte count, blood 5.8 10^3/MM^3 10*3/mm3 4.6-10.2 [...] 240 10^3/MM^3 10*3/mm3 142-424 Lab Report: Chlamydia/GC APTIMA/71408, HIV-1/2 Agn/Dominga/02063, RPR (DX) W ... - Chemistry hepatitis B surface antigen NON-REACTIVE NON-REACTIVE Lab Report: Chlamydia/GC APTIMA/86647, HIV-1/2 Agn/Dominga/32691, RPR (DX) W ... - Lab chlamydia DNA probe NOT DETECTED NOT DETECTED Lab Report: Chlamydia/GC APTIMA/71807, HIV-1/2 Agn/Dominga/36786, RPR (DX) W ... - Microbiology Neisseria gonorrhoeae DNA probe NOT DETECTED NOT DETECTED Lab Report: Chlamydia/GC APTIMA/65272, HIV-1/2 Agn/Dominga/87189, RPR (DX) W ... - Serology rapid plasma reagin antibody titer NON-REACTIVE NON-REACTIVE Lab Report: HGBA1C - Chemistry hemoglobin A1C, blood, as % of total hemoglobin 6.1 % 4.3-6.0 Lab Report: Lipid Panel, HEPATIC PANEL, MICROALBUMIN, CBC - Chemistry albumin/creatinine ratio, urine < 30 mg/g mg/g{creat} 0-29 cholesterol, serum 131 mg/dL 417-444 4882/06/03 triglyceride, serum, fasting 383 mg/dL 30-200 HDL cholesterol, serum 23 mg/dL 32-96 LDL cholesterol, serum 31 mg/dL 0-130 aspartate aminotransferase (SGOT), serum 52 U/L 15-37 alanine aminotransferase (SGPT), serum 112 U/L 12-78 bilirubin, serum, total 0.30 mg/dL 0.00-1.00 Lab Report: Lipid Panel, HEPATIC PANEL, MICROALBUMIN, [...] 4.7 mg/dL 2.6-7.2 cholesterol, serum 142 mg/dL 006-749 0202/06/26 triglyceride, serum, fasting 272 mg/dL 30-200 HDL [...] urine, semiquantitative 6.0 specific gravity, urine 1.015 urine color yellow appearance, urine clear leukocyte esterase, urine, by dipstick negative nitrite, urine, semiquantitative negative urobilinogen, urine, semiquantitative (dipstick) negative protein, urine, semiquantitative (dipstick) negative urinalysis, routine Clean Catch Office Visit: 6 mo f/u uroxatrol - [...] mg/dL Office Visit: Difficulty urinating - Chemistry protein, total urine random negative mg/dL RBC, urine, dipstick negative Office Visit: Difficulty urinating - Urinalysis ketones, [...] negative Encounters Code Encounter Date Provider Facility CPT-49431 Level 3 Est. Patient 14:39:00 CEO Vanessa Hickey MD [facility] CPT-04734 Level 2 Est. Patient 18:43:34 CDT Mima Erazo [facility] CPT-83117 Level 3 Est. Patient 16:22:09 CDT Cherelle Avila [facility]-53778 Level 4 Est. Patient 17:55:14 CDT Mima Erazo [facility]-98880 Level 2 Est. Patient 17:13:21 CDT Alina Castaneda MD [facility]09401 Level 3 Est. Patient 14:46:15 CDT Vanessa Hickey MD [facility]-37286 Level 3 Est. Patient 09:34:56 CDT Alina Castaneda MD [facility]15713 Level 3 Est. Patient 21:40:19 CDT Mima Erazo [facility]54397 Level 3 Est. Patient 09:26:40 CDT Marvel Charles [facility]29577 Level 3 Est. Patient 12:36:43 CDT Vanessa Hickey MD [facility]-47269 Level 3 Est. Patient 12:57:49 CDT Vanessa Hickey MD [facility]-38752 Level 3 Est. Patient 00:28:25 CDT Alina Castaneda MD [facility]69992 Level 2 Est. Patient 12:52:14 CDT Alina Castaneda MD [facility]26557 Level 3 Est. Patient 11:51:18 CEO Alina Castaneda MD [facility]85695 Level 3 Est. Patient 10:09:22 CEO Alina Castaneda MD [facility]30725 Level 3 Est. Patient 14:36:26 CEO Marvel Charles [facility]69249 Level 3 Est. Patient 13:34:47 CEO Alina Castaneda MD [facility]68097 Level 3 Est. Patient 19:52:08 CEO Alina Castaneda MD PhD [facility]-49234 Level 3 Est. Patient 10:01:51 CEO Marvel Charles [facility]-26363 Level 3 Est. Patient 21:54:06 CDT Vanessa Hickey MD [facility]-55466 Level 3 Est. Patient 08:54:46 CDT Alina Castaneda MD [facility]-78888 Level 3 Est. Patient 09:32:11 CDT Marvel Gurdeepajayestela [facility]-14241 Level 3 Est. Patient 12:02:49 CDT Alina Castaneda MD [facility]-77600 Level 3 Est. Patient 19:17:33 CDT Alina Castaneda MD [facility]-55529 Level 3 Est. Patient 13:19:10 CDT Zainnivia Mackenzieanca [facility]-31485 Level 3 Est. Patient 08:20:05 CDT Alina Castaneda MD [facility]-77465 Level 3 Est. Patient 15:17:18 CDT Alina Castaneda MD [facility]-47479 Level 3 Est. Patient 14:25:36 CEO Marvel Gurdeepanca [facility]-50334 Level 3 Est. Patient 10:09:15 CEO Marvel Gurdeepanca [facility]-27060 Level 3 Est. Patient 21:28:43 CDT Alina Castaneda MD [facility]21639 Level 3 Est. Patient 15:20:11 [facility]-45488 Level 4 Est. Patient 19:08:12 CDT Alina Castaneda MD [facility]-57499 Level 3 Est. Patient 15:06:39 CDT Marvel Charles [facility]-26295 Level 4 Est. Patient 17:48:15 CDT Alina Castaneda MD [facility]-12425 Level 3 Est. Patient 14:53:49 CDT Alina Castaneda MD [facility]-66911 Level 3 Est. Patient 09:35:16 CDT Alina Castaneda MD [facility]-06352 Level 3 Est. Patient 12:23:22 CDT Alina Castaneda MD [facility]-41561 Level 3 Est. Patient 16:19:15 CDT Alina Castaneda MD [facility]-50582 Level 3 Est. Patient 21:39:56 CEO Alina Castaneda MD [facility]-20361 Level 4 Est. Patient 14:12:56 CEO Al[facility] [facility]-73221 Level 2 Est. Patient 15:34:57 CEO Alina Castaneda MD [facility]-81656 Level 3 Est. Patient 12:17:04 CEO Alina Castaneda MD [facility]-65916 Level 3 Est. Patient 09:18:18 CEO Marvel Charles [facility]-67239 Level 2 Est. Patient 21:50:24 CDT Alina Castaneda MD [facility]01366 Level 3 Est. Patient 09:17:28 CDT Marvel Charles [facility]-76355 Level 4 Est. Patient 18:54:02 CDT Alina Castaneda MD [facility] CPT-32743 Level 3 Est. Patient 10:47:10 CDT Alina Castaneda MD [facility]-88629 Level 3 Est. Patient 09:22:20 CDT Marvel Thurstonestela [facility] CPT-33553 Level 3 Est. Patient 16:39:43 CDT [facility]86 Level 3 Est. Patient 16:05:16 CDT Alina Castaneda MD [facility]-32412 Level 3 Est. Patient 00:29:15 CDT Alina Castaneda MD [facility]-78575 Level 3 Est. Patient 10:49:22 CEO [place] Gurdeepajayestela [facility] CPT-21807 Level 3 Est. Patient 21:30:19 CEO Alina Castaneda MD [facility] CPT-15525 Level 4 Est. Patient 17:04:11 [facility]15737 Level 3 Est. Patient 15:34:11 CEO [facility]-25366 Level 2 Est. Patient 12:51:58 CEO Alina Castaneda MD [facility] CPT-33192 Level 3 Est. Patient 13:20:01 CEO Alina Castaneda MD [facility] CPT-38660 Level 3 Est. Patient 09:23:35 CDT Alina Castaneda MD [facility] Procedures Code Procedure Name Date Entry Date Standard Description CPT-45672 Bladder Scan 14:39:01 CEO CPT-TCMM Transitional Care Mgmt-Moderate 10:30:19 CEO CPT-53659 Bladder Scan 12:36:44 CDT CPT-28515 Bladder Scan 21:54:06 CDT CPT-G0008 Administration of Influenza Virus Vaccine 13:05:26 CDT CPT-82230 Fluzone Quadrivalent Intramuscular Suspension 0.5 ML 13: 05:26 CDT CPT-93955 Administration single or combination vaccine inc oral 11 :49:51 CDT CPT-54883 Pneumovax 11:49:51 CDT CPT-04812 Ribs unilateral 2V 12:37:22 CEO CPT-57550 Chest 2V Frontal and Lat 17:15:26 CDT CPT-48000 Abx/Therapy Injection 18:54:02 CDT CPT-J0696 Rocephin 1000 mg (Ceftriaxone) 16:00:32 CDT CPT-81240 Chest 2V Frontal and Lat 15:26:45 CDT CPT-59057 Chest 2V Frontal and Lat 10:23:27 CDT CPT-92478 Venipuncture Draw Fee 10:11:00 CDT CPT-84910 Administration single or combination vaccine inc oral 11 :56:38 CDT CPT-60499 Influenza split virus > age 3 11:56:38 CDT CPT-27139 Venipuncture Draw Fee 08:49:54 CEO CPT-91590 EKG Trac and Interp 17:54:19 CEO
--- OUTSIDE RECORDS SUMMARY | 2018-07-02 13:19 | XMS REPORT | Clinical Summary ---
Author Author Admin, TERELL Organization [facility] Address Unknown Phone Unavailable Allergies, Adverse Reactions, [...] incontinence Lower Urinary Tract Symptoms 788.99 Active Vnaessa Hickey MD Other symptoms involving urinary system Open wound of tongue and floor of mouth, uncomplicated 873.64 Resolved Alina Castaneda MD PhD Open wound of tongue and floor of mouth, uncomplicated Chest pain, atypical 786.59 Resolved Alina Castaneda MD PhD Other chest pain Chest pain, atypical 786.59 Resolved Alina Castaneda MD PhD Other chest pain Urinary Retention 788.20 Active Vanessa Hickey MD Retention of urine, unspecified Benign paroxysmal positional vertigo 386.11 Active Mima Kacey [employer] K[employer]PER Benign paroxysmal positional vertigo Vertigo, benign paroxysmal position 386.11 Inactive Mima Kacey [employer] K[employer]PER Benign paroxysmal positional vertigo High-risk sexual behavior V69.2 Active Alina Castaneda MD PhD High-risk sexual behavior Erectile dysfunction 302.72 Active Alina Castaneda MD PhD Psychosexual dysfunction with inhibited sexual excitement WOUND, OPEN, NOSE ICD-873.20 Inactive Alina Castaneda [...] Inactive Alina Castaneda MD PhD Dizziness ICD-780.4 Roro Castaneda MD PhD Confusion ICD-298.9 Roro Castaneda MD PhD Open wound of tongue and floor of mouth, uncomplicated ICD-873.64 Roro Castaneda MD PhD Chest pain, atypical ICD-786.59 Roro Castaneda MD PhD Chest pain, atypical ICD-786.59 Roro Castaneda MD PhD Medication List Medication Instructions Start Date Stop Date Generic Name NDC Status Provider Patient Instruction HUMALOG 100 UNIT/ML SC SOLN 20u am , 10u lunch and supper INSULIN LISPRO (HUMAN) 13456933534 Active Marvel Araceli MARROQUIN Active LATUDA 120 MG ORAL TABS 1 pill by mouth nightly LURASIDONE HCL 14524204180 Active Alina Castaneda MD PhD Active COLACE 100 MG CAPS 1 pill by mouth twice daily, for constipation DOCUSATE SODIUM 20272583694 Active Alina Castaneda MD PhD Active TRUETEST TEST STRP check blood sugars 3x/day GLUCOSE BLOOD 89775537837 Active Malnivia 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 FRICTION SAW OPERATOR Active ACCU-CHEK ROSA UZMA Use device to check blood sugars BLOOD GLUCOSE MONITORING SUPPL 41587316490 No Longer Active Marvel 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 FRICTION SAW OPERATOR Active ACCU-CHEK ROSA INVITR STRP use strips with device to check blood sugars 3 times daily GLUCOSE BLOOD 08177795341 No Longer Active Brooksnviia Araceli MENDOZAP Active VERAPAMIL HCL ER 180 MG ORAL CR-TABS 1 pill by mouth twice daily, for migraine prevention VERAPAMIL HCL 43187617101 Active Alina Castaneda MD PhD Active CYCLOBENZAPRINE HCL 10 MG TABS 1 tablet by mouth three times daily, scheduled CYCLOBENZAPRINE HCL 83722872815 No Longer Active Alina Castaneda MD PhD Active HUMALOG 100 UNIT/ML SOLN Take 20 units with breakfast, 10u with lunch and suppetr. INSULIN LISPRO (HUMAN) 52645464960 No Longer Active Alina Castaneda MD PhD Active TRUETEST TEST STRP check sugars 4x/day GLUCOSE BLOOD 41037241374 No Longer Active Alina Castaneda MD PhD Active MORPHINE SULFATE 30 MG TABS 1 pill by mouth twice daily, for pain MORPHINE SULFATE 41665173606 Active Alina Castaneda MD PhD Active ACYCLOVIR 400 MG ORAL TABS 1 pill three times daily x 5 days, for cold sore outbreak ACYCLOVIR 13568910176 No Longer Active Alina Castaneda MD PhD Active PENICILLIN V POTASSIUM 500 MG TABS 1 pill by mouth three times daily PENICILLIN V POTASSIUM 74312635155 No Longer Active Alina Castaneda MD PhD Active UROXATRAL 10 MG NM00F-HDU Take 1 tablet by mouth daily ALFUZOSIN HCL 71006124781 No Longer Active Alina Castaneda MD PhD Active THIOTHIXENE 5 MG CAPS by mouth twice a day THIOTHIXENE 29179166940 No Longer Active Alina Castaneda MD PhD Active ZYPREXA 7.5 MG TABS 1 at HS OLANZAPINE 64936082674 No Longer Active Alina Castaneda MD PhD Active LEVEMIR 100 UNIT/ML SOLN Take 70 u at 7-8pm INSULIN DETEMIR 02451606996 Active Maliheh Ziglari FRICTION SAW OPERATOR Active BD INSULIN SYRINGE 28G X 1/2" 1 ML MISC 1 four times per day INSULIN SYRINGE-NEEDLE U-100 73128345547 Active Mallashondaeh Ziglari FRICTION SAW OPERATOR Active TOLTERODINE TARTRATE 2 MG TABS 1 pill twice daily, for bladder TOLTERODINE TARTRATE 04867360112 Active Alina Castaneda MD PhD Active DETROL LA 4 MG [id number]-GQA Take 1 tablet by mouth daily TOLTERODINE TARTRATE 32516310240 No Longer Active Alina Castaneda MD PhD Active HYDROCODONE-ACETAMINOPHEN 5-325 MG TABS 2 tabs by mouth three times daily as needed for pain HYDROCODONE-ACETAMINOPHEN 04663247197 Active Alina Castaneda MD PhD Active TERESE CONTOUR TEST STRP monitor blood sugars 3x/day GLUCOSE BLOOD 32515496953 No Longer Active Alina Castaneda MD PhD Active EQL TRUETEST TEST STRP Test blood sugar TID GLUCOSE BLOOD 52089183312 No Longer Active Alina Castaneda MD PhD Active FLUTICASONE PROPIONATE 50 MCG/ACT SUSP 2 sprays each nostril qDay x 30 days FLUTICASONE PROPIONATE 62271626684 No Longer Active Alina Castaneda MD PhD Active IBUPROFEN 200 MG TABS 1 Q 6 hr. PRN IBUPROFEN 03482035060 No Longer Active Alina Castaneda MD PhD Active NIACIN ER 500 MG CR-TABS 4 qHS (for triglycerides) NIACIN 57314621001 No Longer Active Alina Castaneda MD PhD Active ALFUZOSIN HCL ER 10 MG BF99Z-OEL 1 tablet daily ALFUZOSIN HCL 97644191717 Active Vanessa Hickey MD Active CLONAZEPAM 1 MG TABS 1 pill by mouth three times daily CLONAZEPAM 05370668910 Active Alina Castaneda MD PhD Active LOVAZA 1 GM CAPS 4 daily (for triglycerides) [id number] ETHYL ESTERS 41163527721 Active Alina Castaneda MD PhD Active SAPHRIS 5 MG SUBL by mouth twice a day ASENAPINE MALEATE 43277853810 No Longer Active Marvel MARROQUIN Active ACETAMINOPHEN 500 MG TABS 2 Q 6 hr. PRN ACETAMINOPHEN 27772761979 No Longer Active Marvel MARROQUIN Active ORPHENADRINE CITRATE ER 100 MG [id number] 1 every 12 hr. as needed ORPHENADRINE CITRATE 13086450093 No Longer Active Alina Castaneda MD PhD Active NIACIN CR 500 MG CR-TABS 2 qHS NIACIN 89180603992 No Longer Active Alina Castaneda MD PhD Active AMOXICILLIN 500 MG CAPS 2 po BID x 10 days AMOXICILLIN 15218702531 No Longer Active Alina Castaneda MD PhD Active HYDROCODONE-ACETAMINOPHEN 7.5-325 MG TABS 1 four times a day as needed for pain HYDROCODONE-ACETAMINOPHEN 80315423873 No Longer Active Alina Castaneda MD PhD Active METFORMIN HCL ER 500 MG ZV89D-LHF Take three tablets by mouth everyday METFORMIN HCL 17496510103 Active Marvel Mackenzieglestela FRICTION SAW OPERATOR Active DOXEPIN HCL 10 MG CAPS Take 1 tablet by mouth daily DOXEPIN HCL 43704836414 No Longer Active Salina Han [facility] Active NAVANE 10 MG CAPS 1/2 tablet twice a day THIOTHIXENE No Longer Active Salina Han A Active CYCLOBENZAPRINE HCL 10 MG TABS 1/2 tablet by mouth every 8 hours as needed for muscle spasms CYCLOBENZAPRINE HCL 95291940592 No Longer Active Alina Castaneda MD PhD Active BACTROBAN 2 % CREAM apply to ear and nose twice daily MUPIROCIN CALCIUM 35289005673 No Longer Active Alina Castaneda MD PhD Active HYDROCODONE-ACETAMINOPHEN 5-325 MG TABS take one tablet by mouth every four hours as needed for pain HYDROCODONE-ACETAMINOPHEN 53731758596 No Longer Active Alina Castaneda MD PhD Active ZOLPIDEM TARTRATE 10 MG TABS take at bedtime ZOLPIDEM TARTRATE 39659555778 Active Alina Castaneda MD PhD Active ZYPREXA 5 MG TABS take one tablet by mouth every evening OLANZAPINE 74142568238 No Longer Active Alina Castaneda MD PhD Active ALBUTEROL SULFATE 0.083 % NEBU SOLN one vial per nebulizer TID and PRN cough/ soa ALBUTEROL SULFATE 36947600688 No Longer Active Alina Castaneda MD PhD Active GUAIFENESIN 600 MG IE78Q-SLO 1 tablet by mouth twice daily if needed for cough GUAIFENESIN 96483411933 No Longer Active Marvel Charles [facility] Active AZITHROMYCIN 500 MG SOLR 1 po q day AZITHROMYCIN 99465185664 No Longer Active Alina Castaneda MD PhD Active METOPROLOL SUCCINATE 100 MG SI40X-RQP 1 by mouth daily for blood pressure METOPROLOL SUCCINATE 56309444060 Active Alina Castaneda MD PhD Active PROMETHAZINE-CODEINE 6.25-10 MG/5ML SYRP 1 tsp po q 6 hours prn cough PROMETHAZINE-CODEINE 74124802396 No Longer Active Alina Castaneda MD PhD Active CEFDINIR 300 MG CAPS by mouth twice a day CEFDINIR 07267327616 No Longer Active Alina Castaneda MD PhD Active METFORMIN HCL 500 MG CF38K-FTL Take 3 tablets by mouth everyday METFORMIN HCL 49718221319 No Longer Active Alina Castaneda MD PhD Active LEVEMIR 100 UNIT/ML SOLN 90 units SQ qHS INSULIN DETEMIR 93610173398 No Longer Active Marvel MARROQUIN Active TOPROL XL 100 MG KZ30T-FLG 1 @ HS METOPROLOL SUCCINATE 27351313418 No Longer Active Marvel MARROQUIN Active ALLOPURINOL 300 MG TABS Take one by mouth daily ALLOPURINOL 61609267775 Active Alina Castaneda MD PhD Active ZYPREXA 10 MG TABS Take one by mouth daily OLANZAPINE 61363254190 No Longer Active Alina Castaneda MD PhD Active NOVOLOG 100 UNIT/ML SOLN 40 units with every meal INSULIN ASPART 95172512739 No Longer Active Alina Castaneda MD PhD Active VERAPAMIL HCL CR 120 MG TAB CR 1 qPM VERAPAMIL HCL 84445972212 No Longer Active Salina Han A Active ZYPREXA 15 MG TABS Take 1 tablet by mouth daily OLANZAPINE 33739262050 No Longer Active Marvel MARROQUIN Active LISINOPRIL 20 MG TABS 1 BID LISINOPRIL 59127537869 Active Alina Castaneda MD PhD Active ALBUTEROL SULFATE (2.5 MG/3ML) 0.083% NEBU 1 neb tid and prn cough ALBUTEROL SULFATE 36874202626 No Longer Active Alina Castaneda MD PhD Active FLUVOXAMINE MALEATE 100 MG TABS Take one (1) tablet by mouth am, 1/2 at noon, 1 pm FLUVOXAMINE MALEATE 06327537363 Active Alina Castaneda MD PhD Active TRAVATAN Z 0.004 % SOLN 1 gtt each eye daily TRAVOPROST 99785091074 Active CRYSTAL Suarez Active LANTUS 100 UNIT/ML SOLN 60 units sq q hs INSULIN GLARGINE 23533497502 No Longer Active CRYSTAL Suarez Active ALBUTEROL SULFATE (2.5 MG/3ML) 0.083% NEBU 1 neb tid and prn cough ALBUTEROL SULFATE (2.5 MG/3ML) 0.083% NEBU 792182 ALBUTEROL SULFATE Inactive ZYPREXA 15 MG TABS Take 1 tablet by mouth daily ZYPREXA 15 MG TABS 370226 OLANZAPINE Inactive VERAPAMIL HCL CR 120 MG TAB CR 1 qPM VERAPAMIL HCL CR 120 MG TAB CR VERAPAMIL HCL Inactive ZYPREXA 10 MG TABS Take one by mouth daily ZYPREXA 10 MG TABS 521887 OLANZAPINE Inactive TOPROL XL 100 MG GS42E-QYW 1 @ HS TOPROL XL 100 MG BH90B-INX METOPROLOL SUCCINATE Inactive LEVEMIR 100 UNIT/ML SOLN 90 units SQ qHS LEVEMIR 100 UNIT/ML SOLN INSULIN DETEMIR Inactive PROMETHAZINE-CODEINE 6.25-10 MG/5ML SYRP 1 tsp po q 6 hours prn cough PROMETHAZINE-CODEINE 6.25-10 MG/5ML SYRP 635090 PROMETHAZINE- CODEINE Inactive GUAIFENESIN 600 MG BE13W-LLT 1 tablet by mouth twice daily if needed for cough GUAIFENESIN 600 MG YL90F-JKR GUAIFENESIN Inactive ALBUTEROL SULFATE 0.083 % NEBU SOLN one vial per nebulizer TID and PRN cough/ soa ALBUTEROL SULFATE 0.083 % NEBU SOLN 762950 ALBUTEROL SULFATE Inactive ZYPREXA 5 MG TABS take one tablet by mouth every evening ZYPREXA 5 MG TABS 348253 OLANZAPINE Inactive HYDROCODONE-ACETAMINOPHEN 5-325 MG TABS take one tablet by mouth every four hours as needed for pain HYDROCODONE-ACETAMINOPHEN 5-325 MG TABS 380268 HYDROCODONE-ACETAMINOPHEN Inactive BACTROBAN 2 % CREAM apply to ear and nose twice daily BACTROBAN 2 % CREAM 776626 MUPIROCIN CALCIUM Inactive CYCLOBENZAPRINE HCL 10 MG TABS 1/2 tablet by mouth every 8 hours as needed for muscle spasms CYCLOBENZAPRINE HCL 10 MG TABS 589418 CYCLOBENZAPRINE HCL Inactive NAVANE 10 MG CAPS 1/2 tablet twice a day NAVANE 10 MG CAPS THIOTHIXENE Inactive DOXEPIN HCL 10 MG CAPS Take 1 tablet by mouth daily DOXEPIN HCL 10 MG CAPS 6810759 DOXEPIN HCL Inactive HYDROCODONE-ACETAMINOPHEN 7.5-325 MG TABS 1 four times a day as needed for pain HYDROCODONE-ACETAMINOPHEN 7.5-325 MG TABS 518619 HYDROCODONE-ACETAMINOPHEN Inactive NIACIN CR 500 MG CR-TABS 2 qHS NIACIN CR 500 MG CR- TABS NIACIN Inactive ORPHENADRINE CITRATE ER 100 MG [id number]-TIJ 1 every 12 hr. as needed ORPHENADRINE CITRATE ER 100 MG GU70U-QON ORPHENADRINE CITRATE Inactive ACETAMINOPHEN 500 MG TABS 2 Q 6 hr. PRN ACETAMINOPHEN 500 MG TABS 300159 ACETAMINOPHEN Inactive SAPHRIS 5 MG SUBL by mouth twice a day SAPHRIS 5 MG SUBL ASENAPINE MALEATE Inactive NIACIN ER 500 MG CR-TABS 4 qHS (for triglycerides) NIACIN ER 500 MG CR-TABS NIACIN Inactive IBUPROFEN 200 MG TABS 1 Q 6 hr. PRN IBUPROFEN 200 MG TABS 156669 IBUPROFEN Inactive FLUTICASONE PROPIONATE 50 MCG/ACT SUSP 2 sprays each nostril qDay x 30 days FLUTICASONE PROPIONATE 50 MCG/ACT SUSP 551999 FLUTICASONE PROPIONATE Inactive EQL TRUETEST TEST STRP Test blood sugar TID EQL TRUETEST TEST STRP GLUCOSE BLOOD Inactive TERESE CONTOUR TEST STRP monitor blood sugars 3x/day TERESE CONTOUR TEST STRP GLUCOSE BLOOD Inactive DETROL LA 4 MG BF60J-XWW Take 1 tablet by mouth daily DETROL LA 4 MG QK40K-YSF TOLTERODINE TARTRATE Inactive ZYPREXA 7.5 MG TABS 1 at HS ZYPREXA 7.5 MG TABS 572434 OLANZAPINE Inactive THIOTHIXENE 5 MG CAPS by mouth twice a day THIOTHIXENE 5 MG CAPS 095807 THIOTHIXENE Inactive UROXATRAL 10 MG QN36R-YWJ Take 1 tablet by mouth daily UROXATRAL 10 MG JX86C-HFN ALFUZOSIN HCL Inactive ACYCLOVIR 400 MG ORAL TABS 1 pill three times daily x 5 days, for cold sore outbreak ACYCLOVIR 400 MG ORAL TABS 407304 ACYCLOVIR Inactive TRUETEST TEST STRP check sugars 4x/day TRUETEST TEST STRP GLUCOSE BLOOD Inactive HUMALOG 100 UNIT/ML SOLN Take 20 units with breakfast, 10u with lunch and suppetr. HUMALOG 100 UNIT/ML SOLN INSULIN LISPRO ( HUMAN) Inactive CYCLOBENZAPRINE HCL 10 MG TABS 1 tablet by mouth three times daily, scheduled CYCLOBENZAPRINE HCL 10 MG TABS 220598 CYCLOBENZAPRINE HCL Inactive ACCU-CHEK ROSA INVITR STRP use strips with device to check blood sugars 3 times daily ACCU-CHEK ROSA INVITR STRP GLUCOSE BLOOD Inactive ACCU-CHEK ROSA UZMA Use device to check blood sugars ACCU-CHEK ROSA UZMA BLOOD GLUCOSE MONITORING SUPPL Inactive CEFDINIR 300 MG CAPS by mouth twice a day CEFDINIR 300 MG CAPS 939624 CEFDINIR Inactive AZITHROMYCIN 500 MG SOLR 1 po q day AZITHROMYCIN 500 MG SOLR 276447 AZITHROMYCIN Inactive AMOXICILLIN 500 MG CAPS 2 po BID x 10 days AMOXICILLIN 500 MG CAPS 752859 AMOXICILLIN Inactive PENICILLIN V POTASSIUM 500 MG TABS 1 pill by mouth three times daily PENICILLIN V POTASSIUM 500 MG TABS 408479 PENICILLIN V POTASSIUM Inactive Immunizations Vaccine Administration [...] Fluvirin, Fluarix, Agriflu(>=18 yo)) Fluzone (>3 yrs.) [HVL986] Influenza, seasonal, injectable pneumococcal immunization administered Pneumovax 23 [CVX33] pneumococcal polysaccharide vaccine, 23 valent Vital Signs Date Name Value Unit Range Description blood pressure, diastolic - 8462-4 74 mm[Hg] [...] E&M - 3141-9 243 [lb_av] Weight Measured Diagnostic Results Date Name Value Unit Range Description Lab Report: Basic Metabolic Panel, HGBA1C - Chemistry sodium, serum 131 mmol/L 559-380 8357/12/30 potassium, serum 5.0 mmol/L 3.5-5.2 chloride, serum 95 mmol/L 98-107 carbon dioxide, venous blood 26.7 mmol/L 21.0-32.0 blood glucose 112 mg/dL 65-110 calcium, serum 9.2 mg/dL 8.5-10.1 urea nitrogen, blood 12 mg/dL 7-18 creatinine, serum 1.10 mg/dL 0.60-1.30 hemoglobin A1C, blood, as % of total hemoglobin 5.8 % 4.3-6.0 Lab Report: Basic Metabolic Panel, HGBA1C, MICROALBUMIN - Chemistry sodium, serum 137 mmol/L 760-495 8701/05/19 potassium, serum 5.2 mmol/L 3.5-5.2 chloride, serum [...] Lab microalbumin, urine 10 0-19 Lab Report: Chlamydia/GC APTIMA/02338, HIV-1/2 Agn/Dominga/00301, RPR (DX) W ... - Chemistry hepatitis B surface antigen NON-REACTIVE NON-REACTIVE Lab Report: Chlamydia/GC APTIMA/94221, HIV-1/2 Agn/Dominga/67411, RPR (DX) W ... - Lab chlamydia DNA probe NOT DETECTED NOT DETECTED Lab Report: Chlamydia/GC APTIMA/26219, HIV-1/2 Agn/Dominga/26747, RPR (DX) W ... - Microbiology Neisseria gonorrhoeae DNA probe NOT DETECTED NOT DETECTED Lab Report: Chlamydia/GC APTIMA/25707, HIV-1/2 Agn/Dominga/32236, RPR (DX) W ... - Serology rapid plasma reagin antibody titer NON-REACTIVE NON-REACTIVE Lab Report: Comp. Metabolic Panel - Chemistry sodium, serum 127 mmol/L 209-322 9411/10/27 potassium, serum 4.1 mmol/L 3.5-5.2 chloride, serum [...] CBC - Chemistry cholesterol, serum 131 mg/dL 131-672 9471/06/03 triglyceride, serum, fasting 383 mg/dL 30-200 HDL [...] 4.7 mg/dL 2.6-7.2 cholesterol, serum 142 mg/dL 643-213 5949/06/26 triglyceride, serum, fasting 272 mg/dL 30-200 HDL cholesterol, serum 22 mg/dL 32-96 LDL cholesterol, serum 66 mg/dL 0-130 prostate specific antigen 0.37 ng/mL 0.00-4.00 Lab Report: Lipid Panel, Prostatic Specific Ag, MICROALBUMIN, Uric Acid - Lab microalbumin, urine 80 0-19 Office Visit: 6 mo f/u uroxatrol - [...] mg/dL Encounters Code Encounter Date Provider Facility CPT-54684 Level 3 Est. Patient 14:46:15 JEANNINE Hickey MD [facility] CPT-18910 Level 3 Est. Patient 09:34:56 CDT Alina Castaneda MD [facility]-36260 Level 3 Est. Patient 21:40:19 CDT Mima Erazo APRN [facility]-23416 Level 3 Est. Patient 09:26:40 CDT Marvel Charles [facility]-47456 Level 3 Est. Patient 12:36:43 CDT Vanessa Hickey MD [facility]-15329 Level 3 Est. Patient 12:57:49 CDT Vanessa Hickey MD [facility]-16105 Level 3 Est. Patient 00:28:25 CDT Alina Castaneda MD [facility]64136 Level 2 Est. Patient 12:52:14 CDT Alina Castaneda MD [facility]-77372 Level 3 Est. Patient 11:51:18 TIMBER GIRDLER Alina Castaneda MD [facility]-45005 Level 3 Est. Patient 10:09:22 TIMBER GIRDLER Alina Castaneda MD [facility] [place]41434 Level 3 Est. Patient 14:36:26 TIMBER GIRDLER Marvel Charles [facility]-27334 Level 3 Est. Patient 13:34:47 TIMBER GIRDLER Alina Castaneda MD [facility]-74942 Level 3 Est. Patient 19:52:08 TIMBER GIRDLER Alina Castaneda MD [facility]-57765 Level 3 Est. Patient 10:01:51 TIMBER GIRDLER Marvel Charles [facility]-35260 Level 3 Est. Patient 21:54:06 CDT Vanessa iHckey MD [facility]-27292 Level 3 Est. Patient 08:54:46 CDT Alina Castaneda MD [facility]-07132 Level 3 Est. Patient 09:32:11 CDT Marvel Thurstonestela [facility] CPT-67063 Level 3 Est. Patient 12:02:49 CDT Alina Castaneda MD [facility]-72215 Level 3 Est. Patient 19:17:33 CDT Alina Castaneda MD PhD [facility]-53066 Level 3 Est. Patient 13:19:10 CDT Marvel Gurdeepajayestela [facility]-38518 Level 3 Est. Patient 08:20:05 CDT Alina Castaneda MD [facility]-59476 Level 3 Est. Patient 15:17:18 CDT Alina Castaneda MD [facility]-14228 Level 3 Est. Patient 14:25:36 TIMBER GIRDLER [facility] Level 3 Est. Patient 10:09:15 TIMBER GIRDLER [facility] Level 3 Est. Patient 21:28:43 CDT Alina Castaneda MD [facility]-08959 Level 3 Est. Patient 15:20:11 CDT Marvel Araceli [facility] CPT-58242 Level 4 Est. Patient 19:08:12 CDT Alina Castaneda MD PhD [facility]-41111 Level 3 Est. Patient 15:06:39 CDT Marvel Charles [facility]-60238 Level 4 Est. Patient 17:48:15 CDT Alina Castaneda MD [facility]-46283 Level 3 Est. Patient 14:53:49 CDT Alina Castaneda MD [facility]-23845 Level 3 Est. Patient 09:35:16 CDT Alina Castaneda MD [facility]-81284 Level 3 Est. Patient 12:23:22 CDT Alina Castaneda MD [facility]22416 Level 3 Est. Patient 16:19:15 CDT Alina Castaneda MD [facility]-17086 Level 3 Est. Patient 21:39:56 TIMBER GIRDLER Alina Castaneda MD [facility]-42187 Level 4 Est. Patient 14:12:56 TIMBER GIRDLER Alina Castaneda MD [facility]40615 Level 2 Est. Patient 15:34:57 TIMBER GIRDLER Alina Castaneda MD [facility]-11978 Level 3 Est. Patient 12:17:04 TIMBER GIRDLER Alina Castaneda MD [facility]-51903 Level 3 Est. Patient 09:18:18 TIMBER GIRDLER Marvel Charles [facility]-01218 Level 2 Est. Patient 21:50:24 CDT Alina Castaneda MD [facility]-03657 Level 3 Est. Patient 09:17:28 CDT Marvel Charles [facility]-07454 Level 4 Est. Patient 18:54:02 CDT Alina Castaneda MD [facility]-70644 Level 3 Est. Patient 10:47:10 CDT Alina Castaneda MD [facility]47201 Level 3 Est. Patient 09:22:20 CDT Marvel Charles [facility]-18151 Level 3 Est. Patient 16:39:43 CDT [facility]32 Level 3 Est. Patient 16:05:16 CDT Alina Castaneda MD [facility] CPT-28048 Level 3 Est. Patient 00:29:15 CDT Alina Castaneda MD [facility] CPT-33587 Level 3 Est. Patient 10:49:22 TIMBER GIRDLER Marvel Thurstonestela [facility] CPT-45079 Level 3 Est. Patient 21:30:19 TIMBER GIRDLER Alina Castaneda MD [facility] CPT-31350 Level 4 Est. Patient 17:04:11 TIMBER GIRDLER Brook[place] Thurstonestela [facility] CPT-28742 Level 3 Est. Patient 15:34:11 TIMBER GIRDLER [facility] Level 2 Est. Patient 12:51:58 TIMBER GIRDLER Alina Castaneda MD [facility] CPT-97834 Level 3 Est. Patient 13:20:01 TIMBER GIRDLER Alina Castaneda MD [facility] CPT-16999 Level 3 Est. Patient 09:23:35 CDT Alina Castaneda MD [facility] Procedures Code Procedure Name Date Entry Date Standard Description CPT-33318 Bladder Scan 12:36:44 CDT CPT-51720 Bladder Scan 21:54:06 CDT CPT-G0008 Administration of Influenza Virus Vaccine 13:05:26 CDT CPT-93438 Fluzone Quadrivalent Intramuscular Suspension 0.5 ML 13: 05:26 CDT CPT-87551 Administration single or combination vaccine inc oral 11 :49:51 CDT CPT-63721 Pneumovax 11:49:51 CDT CPT-07782 Ribs unilateral 2V 12:37:22 TIMBER GIRDLER CPT-69100 Chest 2V Frontal and Lat 17:15:26 CDT CPT-85308 Abx/Therapy Injection 18:54:02 CDT CPT-J0696 Rocephin 1000 mg (Ceftriaxone) 16:00:32 CDT CPT-31364 Chest 2V Frontal and Lat 15:26:45 CDT CPT-19817 Chest 2V Frontal and Lat 10:23:27 CDT CPT-64378 Venipuncture Draw Fee 10:11:00 CDT CPT-05234 Administration single or combination vaccine inc oral 11 :56:38 CDT CPT-95262 Influenza split virus > age 3 11:56:38 CDT CPT-69608 Venipuncture Draw Fee 08:49:54 TIMBER GIRDLER CPT-82786 EKG Trac and Interp 17:54:19 TIMBER GIRDLER
--- OUTSIDE RECORDS SUMMARY | 2018-07-02 13:21 | XMS REPORT | Clinical Summary ---
Author Author Admin, TERELL Organization [facility] Address Unknown Phone Unavailable Allergies, Adverse Reactions, [...] unspecified DIABETIC HYPOGLYCEMIA, TYPE II 250.80 Resolved Mallashondanivia Araceli MENDOZAP Diabetes mellitus with other specified manifestations, type II or unspecified type, not stated as uncontrolled SUBDURAL HEMATOMA 432.1 Resolved Alina Castaneda MD PhD Subdural hemorrhage Diabetes mellitus, type II, uncontrolled 250.02 Active Mallashondaeh Gurdeepglestela TIER LIFT OPERATOR Diabetes mellitus without mention of complication, type II or unspecified type, uncontrolled 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 Active Alina Castaneda MD PhD Recurrent isolated sleep paralysis SPECIAL SCREENING FOR MALIGNANT NEOPLASM OF PROSTATE V76.44 Resolved Alina Castaneda MD PhD Screening for malignant neoplasms of prostate Hypoglycemia 251.2 Resolved Alina Castaneda MD PhD Hypoglycemia, unspecified Diabetes mellitus, type II 250.00 Active Mallashondaeh Bertrandari TIER LIFT OPERATOR Diabetes mellitus without mention of complication, [...] of tongue and floor of mouth, uncomplicated WOUND, OPEN, NOSE ICD-873.20 Inactive Alina Castaneda [...] Castaneda MD PhD PNEUMONIA, ORGANISM UNSPECIFIED ICD-486 Roro Castaneda MD PhD RIB PAIN, RIGHT SIDED ICD-786.50 Inactive Alina Castaneda MD PhD SKIN LESION ICD-709.9 Roro Castaneda MD PhD SINUSITIS, ACUTE ICD-461.9 Inactive Alina Castaneda MD PhD DIABETIC HYPOGLYCEMIA, TYPE II ICD-250.80 Inactive Marvel 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 Roro Castaneda MD PhD SPECIAL SCREENING FOR MALIGNANT NEOPLASM OF PROSTATE ICD-V76.44 Inactive Alina Castaneda MD PhD Hypoglycemia ICD-251.2 Inactive Alina Castaneda MD PhD Dizziness ICD-780.4 Inactive Alina Castaneda MD PhD Confusion ICD-298.9 Inactive Alina Castaneda MD PhD Medication List Medication Instructions Start Date Stop Date Generic Name NDC Status Provider Patient Instruction TRUETEST TEST STRP check blood sugars 3x/day GLUCOSE BLOOD 81931725714 Active Malihnivia Ziglari TIER LIFT OPERATOR Active ACCU-CHEK ROSA UZMA Use device to check blood sugars BLOOD GLUCOSE MONITORING SUPPL 22713808985 No Longer Active Mallashondaeh Ziglari TIER LIFT OPERATOR Active ACCU-CHEK ROSA INVITR STRP use strips with device to check blood sugars 3 times daily GLUCOSE BLOOD 98637405638 No Longer Active Mallashondaeh 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 TIER LIFT OPERATOR Active VERAPAMIL HCL ER 180 MG ORAL CR-TABS 1 pill by mouth twice daily, for migraine prevention VERAPAMIL HCL 28187765780 Active Alina Castaneda MD PhD Active CYCLOBENZAPRINE HCL 10 MG TABS 1 tablet by mouth three times daily, scheduled CYCLOBENZAPRINE HCL 28998378994 No Longer Active Alina Castaneda MD PhD Active HUMALOG 100 UNIT/ML SOLN Take 20 units with breakfast, 10u with lunch and suppetr. INSULIN LISPRO (HUMAN) 55318098471 No Longer Active Alina Castaneda MD PhD Active TRUETEST TEST STRP check sugars 4x/day GLUCOSE BLOOD 88453408330 No Longer Active Alina Castaneda MD PhD Active MORPHINE SULFATE 30 MG TABS 1 pill by mouth twice daily, for pain MORPHINE SULFATE 32742862580 Active Alina Castaneda MD PhD Active ACYCLOVIR 400 MG ORAL TABS 1 pill three times daily x 5 days, for cold sore outbreak ACYCLOVIR 66095706974 No Longer Active Alina Castaneda MD PhD Active PENICILLIN V POTASSIUM 500 MG TABS 1 pill by mouth three times daily PENICILLIN V POTASSIUM 41328034741 No Longer Active Alina Castaneda MD PhD Active LATUDA 80 MG TABS 1 tab by mouth every evening LURASIDONE HCL 00265809446 Active Alina Castaneda MD PhD Active UROXATRAL 10 MG EA62D-LTI Take 1 tablet by mouth daily ALFUZOSIN HCL 10373213514 No Longer Active Alina Castaneda MD PhD Active THIOTHIXENE 5 MG CAPS by mouth twice a day THIOTHIXENE 77946247321 No Longer Active Alina Castaneda MD PhD Active ZYPREXA 7.5 MG TABS 1 at HS OLANZAPINE 14780507415 No Longer Active Alina Castaneda MD PhD Active LEVEMIR 100 UNIT/ML SOLN Take 70 u at 7-8pm INSULIN DETEMIR 24622970733 Active Maliheh Ziglari TIER LIFT OPERATOR Active BD INSULIN SYRINGE 28G X 1/2" 1 ML MISC 1 four times per day INSULIN SYRINGE-NEEDLE U-100 21370405086 Active Mallashondaeh Ziglari TIER LIFT OPERATOR Active TOLTERODINE TARTRATE 2 MG TABS 1 pill twice daily, for bladder TOLTERODINE TARTRATE 78730891933 Active Alina Castaneda MD PhD Active DETROL LA 4 MG [id number]-PGL Take 1 tablet by mouth daily TOLTERODINE TARTRATE 37829283916 No Longer Active Alina Castaneda MD PhD Active HYDROCODONE-ACETAMINOPHEN 5-325 MG TABS 2 tabs by mouth three times daily as needed for pain HYDROCODONE-ACETAMINOPHEN 16058295982 Active Alina Castaneda MD PhD Active TERESE CONTOUR TEST STRP monitor blood sugars 3x/day GLUCOSE BLOOD 73524395208 No Longer Active Alina Castaneda MD PhD Active EQL TRUETEST TEST STRP Test blood sugar TID GLUCOSE BLOOD 30926779726 No Longer Active Alina Castaneda MD PhD Active FLUTICASONE PROPIONATE 50 MCG/ACT SUSP 2 sprays each nostril qDay x 30 days FLUTICASONE PROPIONATE 78074432382 No Longer Active Alina Castaneda MD PhD Active IBUPROFEN 200 MG TABS 1 Q 6 hr. PRN IBUPROFEN 20396217223 No Longer Active Alina Castaneda MD PhD Active NIACIN ER 500 MG CR-TABS 4 qHS (for triglycerides) NIACIN 12751700980 No Longer Active Alina Castaneda MD PhD Active ALFUZOSIN HCL ER 10 MG SS95R-MIF 1 tablet daily ALFUZOSIN HCL 59010274482 Active Vanessa Hickey MD Active CLONAZEPAM 1 MG TABS 1 pill by mouth three times daily CLONAZEPAM 92363890289 Active Alina Castaneda MD PhD Active LOVAZA 1 GM CAPS 4 daily (for triglycerides) [id number] ETHYL ESTERS 64883800302 Active Alina Castaneda MD PhD Active SAPHRIS 5 MG SUBL by mouth twice a day ASENAPINE MALEATE 60274369160 No Longer Active Maliheh Ziglari TIER LIFT OPERATOR Active ACETAMINOPHEN 500 MG TABS 2 Q 6 hr. PRN ACETAMINOPHEN 07932415815 No Longer Active Maliheh Ziglari TIER LIFT OPERATOR Active ORPHENADRINE CITRATE ER 100 MG FI24S-PBN 1 every 12 hr. as needed ORPHENADRINE CITRATE 87645161183 No Longer Active Alina Castaneda MD PhD Active NIACIN CR 500 MG CR-TABS 2 qHS NIACIN 66169349728 No Longer Active Alina Castaneda MD PhD Active AMOXICILLIN 500 MG CAPS 2 po BID x 10 days AMOXICILLIN 68597765091 No Longer Active Alina Castaneda MD PhD Active HYDROCODONE-ACETAMINOPHEN 7.5-325 MG TABS 1 four times a day as needed for pain HYDROCODONE-ACETAMINOPHEN 68680349240 No Longer Active Alina Castaneda MD PhD Active METFORMIN HCL ER 500 MG [id number]-CFM Take three tablets by mouth everyday METFORMIN HCL 84538184143 Active Marvel MARROQUIN Active DOXEPIN HCL 10 MG CAPS Take 1 tablet by mouth daily DOXEPIN HCL 89584872915 No Longer Active Salina Han A Active NAVANE 10 MG CAPS 1/2 tablet twice a day THIOTHIXENE No Longer Active Salina Han A Active CYCLOBENZAPRINE HCL 10 MG TABS 1/2 tablet by mouth every 8 hours as needed for muscle spasms CYCLOBENZAPRINE HCL 03147796070 No Longer Active Alina Castaneda MD PhD Active BACTROBAN 2 % CREAM apply to ear and nose twice daily MUPIROCIN CALCIUM 53741743288 No Longer Active Alina Castaneda MD PhD Active HYDROCODONE-ACETAMINOPHEN 5-325 MG TABS take one tablet by mouth every four hours as needed for pain HYDROCODONE-ACETAMINOPHEN 98934335802 No Longer Active Alina Castaneda MD PhD Active ZOLPIDEM TARTRATE 10 MG TABS take at bedtime ZOLPIDEM TARTRATE 63758542986 Active Alina Castaneda MD PhD Active ZYPREXA 5 MG TABS take one tablet by mouth every evening OLANZAPINE 05197631156 No Longer Active Alina Castaneda MD PhD Active ALBUTEROL SULFATE 0.083 % NEBU SOLN one vial per nebulizer TID and PRN cough/ soa ALBUTEROL SULFATE 09931405290 No Longer Active Alina Castaneda MD PhD Active GUAIFENESIN 600 MG NE69J-OGL 1 tablet by mouth twice daily if needed for cough GUAIFENESIN 54408784847 No Longer Active Marvel MARROQUIN Active AZITHROMYCIN 500 MG SOLR 1 po q day AZITHROMYCIN 44290534842 No Longer Active Alina Castaneda MD PhD Active METOPROLOL SUCCINATE 100 MG FL27T-WEH 1 by mouth daily for blood pressure METOPROLOL SUCCINATE 05284253851 Active Alina Castaneda MD PhD Active PROMETHAZINE-CODEINE 6.25-10 MG/5ML SYRP 1 tsp po q 6 hours prn cough PROMETHAZINE-CODEINE 88061329090 No Longer Active Alina Castaneda MD PhD Active CEFDINIR 300 MG CAPS by mouth twice a day CEFDINIR 12679574818 No Longer Active Alina Castaneda MD PhD Active METFORMIN HCL 500 MG YW62O-PGF Take 3 tablets by mouth everyday METFORMIN HCL 99096877448 No Longer Active Alina Castaneda MD PhD Active LEVEMIR 100 UNIT/ML SOLN 90 units SQ qHS INSULIN DETEMIR 13448250596 No Longer Active Marvel MARROQUIN Active TOPROL XL 100 MG XW71F-YJS 1 @ HS METOPROLOL SUCCINATE 78883348902 No Longer Active Marvel MARROQUIN Active ALLOPURINOL 300 MG TABS Take one by mouth daily ALLOPURINOL 97595284276 Active Alina Castaneda MD PhD Active ZYPREXA 10 MG TABS Take one by mouth daily OLANZAPINE 67209990425 No Longer Active Alina Castaneda MD PhD Active NOVOLOG 100 UNIT/ML SOLN 40 units with every meal INSULIN ASPART 45670144135 No Longer Active Alina Castaneda MD PhD Active VERAPAMIL HCL CR 120 MG TAB CR 1 qPM VERAPAMIL HCL 10226711332 No Longer Active Salina Han [facility] Active ZYPREXA 15 MG TABS Take 1 tablet by mouth daily OLANZAPINE 92860575997 No Longer Active Marvel MARROQUIN Active LISINOPRIL 20 MG TABS 1 BID LISINOPRIL 57280227988 Active Alina Castaneda MD PhD Active ALBUTEROL SULFATE (2.5 MG/3ML) 0.083% NEBU 1 neb tid and prn cough ALBUTEROL SULFATE 94790462367 No Longer Active Alina Castaneda MD PhD Active FLUVOXAMINE MALEATE 100 MG TABS Take one (1) tablet by mouth am, 1/2 at noon, 1 pm FLUVOXAMINE MALEATE 43290742120 Active Alina Castaneda MD PhD Active TRAVATAN Z 0.004 % SOLN 1 gtt each eye daily TRAVOPROST 51909746423 Active ITZEL SuarezAriela Active LANTUS 100 UNIT/ML SOLN 60 units sq q hs INSULIN GLARGINE 95920873693 No Longer Active CRYSTAL Suarez Active ALBUTEROL SULFATE (2.5 MG/3ML) 0.083% NEBU 1 neb tid and prn cough ALBUTEROL SULFATE (2.5 MG/3ML) 0.083% NEBU 283730 ALBUTEROL SULFATE Inactive ZYPREXA 15 MG TABS Take 1 tablet by mouth daily ZYPREXA 15 MG TABS 852828 OLANZAPINE Inactive VERAPAMIL HCL CR 120 MG TAB CR 1 qPM VERAPAMIL HCL CR 120 MG TAB CR VERAPAMIL HCL Inactive ZYPREXA 10 MG TABS Take one by mouth daily ZYPREXA 10 MG TABS 354521 OLANZAPINE Inactive TOPROL XL 100 MG EF70C-AHC 1 @ HS TOPROL XL 100 MG SL91K-USH METOPROLOL SUCCINATE Inactive LEVEMIR 100 UNIT/ML SOLN 90 units SQ qHS LEVEMIR 100 UNIT/ML SOLN INSULIN DETEMIR Inactive PROMETHAZINE-CODEINE 6.25-10 MG/5ML SYRP 1 tsp po q 6 hours prn cough PROMETHAZINE-CODEINE 6.25-10 MG/5ML SYRP 960929 PROMETHAZINE- CODEINE Inactive GUAIFENESIN 600 MG SY73V-PKG 1 tablet by mouth twice daily if needed for cough GUAIFENESIN 600 MG NQ87M-SHL GUAIFENESIN Inactive ALBUTEROL SULFATE 0.083 % NEBU SOLN one vial per nebulizer TID and PRN cough/ soa ALBUTEROL SULFATE 0.083 % NEBU SOLN 159674 ALBUTEROL SULFATE Inactive ZYPREXA 5 MG TABS take one tablet by mouth every evening ZYPREXA 5 MG TABS 848221 OLANZAPINE Inactive HYDROCODONE-ACETAMINOPHEN 5-325 MG TABS take one tablet by mouth every four hours as needed for pain HYDROCODONE-ACETAMINOPHEN 5-325 MG TABS 583454 HYDROCODONE-ACETAMINOPHEN Inactive BACTROBAN 2 % CREAM apply to ear and nose twice daily BACTROBAN 2 % CREAM 373948 MUPIROCIN CALCIUM Inactive CYCLOBENZAPRINE HCL 10 MG TABS 1/2 tablet by mouth every 8 hours as needed for muscle spasms CYCLOBENZAPRINE HCL 10 MG TABS 552967 CYCLOBENZAPRINE HCL Inactive NAVANE 10 MG CAPS 1/2 tablet twice a day NAVANE 10 MG CAPS THIOTHIXENE Inactive DOXEPIN HCL 10 MG CAPS Take 1 tablet by mouth daily DOXEPIN HCL 10 MG CAPS 4576848 DOXEPIN HCL Inactive HYDROCODONE-ACETAMINOPHEN 7.5-325 MG TABS 1 four times a day as needed for pain HYDROCODONE-ACETAMINOPHEN 7.5-325 MG TABS 421278 HYDROCODONE-ACETAMINOPHEN Inactive NIACIN CR 500 MG CR-TABS 2 qHS NIACIN CR 500 MG CR- TABS NIACIN Inactive ORPHENADRINE CITRATE ER 100 MG EH07R-COQ 1 every 12 hr. as needed ORPHENADRINE CITRATE ER 100 MG UC84U-HCP ORPHENADRINE CITRATE Inactive ACETAMINOPHEN 500 MG TABS 2 Q 6 hr. PRN ACETAMINOPHEN 500 MG TABS 411116 ACETAMINOPHEN Inactive SAPHRIS 5 MG SUBL by mouth twice a day SAPHRIS 5 MG SUBL ASENAPINE MALEATE Inactive NIACIN ER 500 MG CR-TABS 4 qHS (for triglycerides) NIACIN ER 500 MG CR-TABS NIACIN Inactive IBUPROFEN 200 MG TABS 1 Q 6 hr. PRN IBUPROFEN 200 MG TABS 789244 IBUPROFEN Inactive FLUTICASONE PROPIONATE 50 MCG/ACT SUSP 2 sprays each nostril qDay x 30 days FLUTICASONE PROPIONATE 50 MCG/ACT SUSP 110053 FLUTICASONE PROPIONATE Inactive EQL TRUETEST TEST STRP Test blood sugar TID EQL TRUETEST TEST STRP GLUCOSE BLOOD Inactive TERESE CONTOUR TEST STRP monitor blood sugars 3x/day TERESE CONTOUR TEST STRP GLUCOSE BLOOD Inactive DETROL LA 4 MG [id number]-ZPJ Take 1 tablet by mouth daily DETROL LA 4 MG OV38D-WET TOLTERODINE TARTRATE Inactive ZYPREXA 7.5 MG TABS 1 at HS ZYPREXA 7.5 MG TABS 925052 OLANZAPINE Inactive THIOTHIXENE 5 MG CAPS by mouth twice a day THIOTHIXENE 5 MG CAPS 249573 THIOTHIXENE Inactive UROXATRAL 10 MG QZ05I-ZNY Take 1 tablet by mouth daily UROXATRAL 10 MG HR44I-HHN ALFUZOSIN HCL Inactive ACYCLOVIR 400 MG ORAL TABS 1 pill three times daily x 5 days, for cold sore outbreak ACYCLOVIR 400 MG ORAL TABS 654561 ACYCLOVIR Inactive TRUETEST TEST STRP check sugars 4x/day TRUETEST TEST STRP GLUCOSE BLOOD Inactive HUMALOG 100 UNIT/ML SOLN Take 20 units with breakfast, 10u with lunch and suppetr. HUMALOG 100 UNIT/ML SOLN INSULIN LISPRO ( HUMAN) Inactive CYCLOBENZAPRINE HCL 10 MG TABS 1 tablet by mouth three times daily, scheduled CYCLOBENZAPRINE HCL 10 MG TABS 834561 CYCLOBENZAPRINE HCL Inactive ACCU-CHEK ROSA INVITR STRP use strips with device to check blood sugars 3 times daily ACCU-CHEK ROSA INVITR STRP GLUCOSE BLOOD Inactive ACCU-CHEK ROSA UZMA Use device to check blood sugars ACCU-CHEK ROSA UZMA BLOOD GLUCOSE MONITORING SUPPL Inactive CEFDINIR 300 MG CAPS by mouth twice a day CEFDINIR 300 MG CAPS 196171 CEFDINIR Inactive AZITHROMYCIN 500 MG SOLR 1 po q day AZITHROMYCIN 500 MG SOLR 300742 AZITHROMYCIN Inactive AMOXICILLIN 500 MG CAPS 2 po BID x 10 days AMOXICILLIN 500 MG CAPS 738063 AMOXICILLIN Inactive PENICILLIN V POTASSIUM 500 MG TABS 1 pill by mouth three times daily PENICILLIN V POTASSIUM 500 MG TABS 522710 PENICILLIN V POTASSIUM Inactive Immunizations Vaccine Administration [...] Fluvirin, Fluarix, Agriflu(>=18 yo)) Fluzone (>3 yrs.) [NVK601] Influenza, seasonal, injectable pneumococcal immunization administered Pneumovax 23 [CVX33] pneumococcal polysaccharide vaccine, 23 valent Vital Signs Date Name Value Unit Range Description blood pressure, diastolic - 8462-4 66 mm[Hg] [...] pressure, diastolic - 8462-4 68 mm[Hg] BP agrcia blood pressure, systolic - 8480-6 118 mm[Hg] [...] E&M - 8867-4 80 /min Heart rate blood pressure, diastolic - 8462-4 62 mm[Hg] BP garcia blood pressure, systolic - 8480-6 123 mm[Hg] BP sys height E&M - 8302-2 70 [in_us] Bdy height pulse rate E&M - 8867-4 86 /min Heart rate temperature E&M 98.5 [degF] Body temperature weight E&M - 3141-9 251 [lb_av] Weight Measured Diagnostic Results Date Name Value Unit Range Description Lab Report: Basic Metabolic Panel, HGBA1C - Chemistry sodium, serum 130 mmol/L 505-925 8179/06/09 potassium, serum 4.0 mmol/L 3.5-5.2 chloride, serum 92 mmol/L 98-107 carbon dioxide, venous blood 22.1 mmol/L 21.0-32.0 blood glucose 60 mg/dL 65-110 calcium, serum 9.5 mg/dL 8.5-10.1 urea nitrogen, blood 14 mg/dL 7-18 creatinine, serum 1.30 mg/dL 0.60-1.30 hemoglobin A1C, blood, as % of total hemoglobin 6.0 % 4.3-6.0 sodium, serum 131 mmol/L 546-082 7865/12/30 potassium, serum 5.0 mmol/L 3.5-5.2 chloride, serum 95 mmol/L 98-107 carbon dioxide, venous blood 26.7 mmol/L 21.0-32.0 blood glucose 112 mg/dL 65-110 calcium, serum 9.2 mg/dL 8.5-10.1 urea nitrogen, blood 12 mg/dL 7-18 creatinine, serum 1.10 mg/dL 0.60-1.30 hemoglobin A1C, blood, as % of total hemoglobin 5.8 % 4.3-6.0 Lab Report: CBC, CMP, Lipid Panel, TSH, PSA, microalbumin, uric acid - Chemistry albumin/creatinine ratio, urine < 30 mg/g mg/g{creat} 0-29 uric acid, serum 6.0 mg/dL 2.6-7.2 sodium, serum 130 mmol/L 242-127 6075/05/01 potassium, serum 5.2 mmol/L 3.5-5.2 chloride, serum 96 mmol/L 98-107 carbon dioxide, venous blood 21.8 mmol/L 21.0-32.0 blood glucose 181 mg/dL 65-110 urea nitrogen, blood 24 mg/dL 7-18 creatinine, serum 1.20 mg/dL 0.60-1.30 alanine aminotransferase (SGPT), serum 88 U/L 12-78 aspartate aminotransferase (SGOT), serum 43 U/L 15-37 alkaline phosphatase, serum 54 U/L 50-136 calcium, serum 9.6 mg/dL 8.5-10.1 bilirubin, serum, total 0.40 mg/dL 0.00-1.00 cholesterol, serum 151 mg/dL 126-129 0859/05/01 triglyceride, serum, fasting 356 mg/dL 30-200 HDL cholesterol, serum 19 mg/dL 32-96 LDL cholesterol, serum 61 mg/dL 0-130 TSH 2.22 m[iU]/mL 0.36-3.74 prostate specific antigen 0.11 ng/mL 0.00-4.00 Lab Report: CBC, CMP, Lipid Panel, TSH, PSA, microalbumin, uric acid - Hematology mean corpuscular hemoglobin, RBC 30.1 pg 27.0-31.2 mean corpuscular hemoglobin concentration, RBC 34.5 G/DL % 31.8- 35.4 red blood cell distribution width 15.0 % 11.6-14.8 platelet count 304 10^3/MM^3 10*3/mm3 793-093 2801/05/01 mean corpuscular volume, RBC 87 fL 80-97 hematocrit, blood 44.2 % 41.0-53.0 hemoglobin, blood 15.3 g/dL 13.5-17.5 erythrocyte (RBC) count 5.07 10^6/MM^3 10*6/mm3 4.69-6.13 leukocyte count, blood 7.8 10^3/MM^3 10*3/mm3 4.6-10.2 Lab Report: CBC, CMP, Lipid Panel, TSH, PSA, microalbumin, uric acid - Lab microalbumin, urine 10 0-19 Lab Report: Comp. Metabolic Panel - Chemistry sodium, serum 127 mmol/L 576-773 0010/10/27 potassium, serum 4.1 mmol/L 3.5-5.2 chloride, serum [...] mg/dL Encounters Code Encounter Date Provider Facility CPT-59974 Level 2 Est. Patient 12:52:14 CDT Alina Castaneda MD [facility]-08380 Level 3 Est. Patient 11:51:18 CELERY STRIPPER Alina Castaneda MD [facility] CPT-57071 Level 3 Est. Patient 10:09:22 CELERY STRIPPER Alina Castaneda MD [facility]-14090 Level 3 Est. Patient 14:36:26 [facility]EL[facility] STRIPPER [facility] CPT-26443 Level 3 Est. Patient 13:34:47 CELERY STRIPPER Alina Castaneda MD [facility]-63445 Level 3 Est. Patient 19:52:08 CELERY STRIPPER Alina Castaneda MD [facility] CPT-43952 Level 3 Est. Patient 10:01:51 CELERY STRIPPER [facility] CPT-00948 Level 3 Est. Patient 21:54:06 CDT Vanessa Hickey MD [facility]-48670 Level 3 Est. Patient 08:54:46 CDT Alina Castaneda MD [facility]-64672 Level 3 Est. Patient 09:32:11 CDT [facility] Araceli [facility]-13005 Level 3 Est. Patient 12:02:49 CDT Alina Castaneda MD [facility]-88049 Level 3 Est. Patient 19:17:33 CDT Alina Castaneda MD [facility]29702 Level 3 Est. Patient 13:19:10 CDT Marvel Araceli [facility]-95158 Level 3 Est. Patient 08:20:05 CDT Alina Castaneda MD [facility]20250 Level 3 Est. Patient 15:17:18 CDT Alina Castaneda MD [facility]90371 Level 3 Est. Patient 14:25:36 [facility]IPPER [facility] Patient 10:09:15 CELERY STRIPPER [facility] Level 3 Est. Patient 21:28:43 CDT Alina Castaneda MD [facility]-37796 Level 3 Est. Patient 15:20:11 [facility] Level 4 Est. Patient 19:08:12 CDT Alina Castaneda MD [facility]-76482 Level 3 Est. Patient 15:06:39 CDT Marvel [facility]-90908 Level 4 Est. Patient 17:48:15 CDT Alina Castaneda MD [facility]-65301 Level 3 Est. Patient 14:53:49 CDT Alina Castaneda MD [facility]38527 Level 3 Est. Patient 09:35:16 CDT Alina Castaneda MD [facility]-28086 Level 3 Est. Patient 12:23:22 CDT Alina Castaneda MD [facility]-41866 Level 3 Est. Patient 16:19:15 CDT Alina Castaneda MD [facility]-24327 Level 3 Est. Patient 21:39:56 CELERY STRIPPER Alina Castaneda MD [facility]75660 Level 4 Est. Patient 14:12:56 CELERY STRIPPER Alina Castaneda MD [facility]-57306 Level 2 Est. Patient 15:34:57 CELERY STRIPPER Alina Castaneda MD [facility]-84435 Level 3 Est. Patient 12:17:04 CELERY STRIPPER Alina Castaneda MD [facility]-74459 Level 3 Est. Patient 09:18:18 CELERY STRIPPER Marvel [facility]-34843 Level 2 Est. Patient 21:50:24 CDT Alina Castaneda MD [facility]-71621 Level 3 Est. Patient 09:17:28 CDT Marvel [facility]-38659 Level 4 Est. Patient 18:54:02 CDT Alina Castaneda MD [facility]-63946 Level 3 Est. Patient 10:47:10 CDT Alina Castaneda MD [facility]29047 Level 3 Est. Patient 09:22:20 CDT Marvel [facility]-51246 Level 3 Est. Patient 16:39:43 CDT Marvel [facility]-70813 Level 3 Est. Patient 16:05:16 CDT Alina Castaneda MD [facility]75254 Level 3 Est. Patient 00:29:15 CDT Alina Castaneda MD [facility] CPT-54284 Level 3 Est. Patient 10:49:22 CELERY STRIPPER Marvel [facility] CPT-89968 Level 3 Est. Patient 21:30:19 CELERY STRIPPER Alina Castaneda MD [facility] CPT-20053 Level 4 Est. Patient 17:04:11 CELERY STRIPPER Marvel [facility] CPT-06208 Level 3 Est. Patient 15:34:11 [facility]IP[facility] CPT-41043 Level 2 Est. Patient 12:51:58 CELERY STRIPPER Alina Castaneda MD [facility] CPT-86177 Level 3 Est. Patient 13:20:01 CELERY STRIPPER Alina Castaneda MD [facility] CPT-95619 Level 3 Est. Patient 09:23:35 CDT Alina Castaneda MD [facility] Procedures Code Procedure Name Date Entry Date Standard Description CPT-22918 Bladder Scan 21:54:06 CDT CPT-G0008 Administration of Influenza Virus Vaccine 13:05:26 CDT CPT-67205 Fluzone Quadrivalent Intramuscular Suspension 0.5 ML 13: 05:26 CDT CPT-17184 Administration single or combination vaccine inc oral 11 :49:51 CDT CPT-40797 Pneumovax 11:49:51 CDT CPT-02738 Ribs unilateral 2V 12:37:22 CELERY STRIPPER CPT-50560 Chest 2V Frontal and Lat 17:15:26 CDT CPT-30792 Abx/Therapy Injection 18:54:02 CDT CPT-J0696 Rocephin 1000 mg (Ceftriaxone) 16:00:32 CDT CPT-59362 Chest 2V Frontal and Lat 15:26:45 CDT CPT-78588 Chest 2V Frontal and Lat 10:23:27 CDT CPT-04264 Venipuncture Draw Fee 10:11:00 CDT CPT-53794 Administration single or combination vaccine inc oral 11 :56:38 CDT CPT-89443 Influenza split virus > age 3 11:56:38 CDT CPT-62530 Venipuncture Draw Fee 08:49:54 CELERY STRIPPER CPT-13589 EKG Trac and Interp 17:54:19 CELERY STRIPPER
--- OUTSIDE RECORDS SUMMARY | 2018-07-02 13:22 | XMS REPORT | Clinical Summary ---
Author Author Admin, TERELL Organization [facility] Address Unknown Phone Unavailable Allergies, Adverse Reactions, 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 Erazo RN [facility] Benign paroxysmal positional vertigo Vertigo, benign paroxysmal position 386.11 Inactive Mima Erazo RN [facility] Benign paroxysmal positional vertigo High-risk sexual behavior V69.2 Active Alina Castaneda MD PhD High-risk sexual behavior Erectile dysfunction 302.72 Active Alina Castaneda MD PhD Psychosexual dysfunction with inhibited sexual excitement Constipation 564.00 Active Alina Castaneda MD PhD Constipation, unspecified Skin lesion 709.9 Active Alina Castaneda MD PhD Unspecified disorder of skin and subcutaneous tissue Malaise and fatigue 780.79 Active Cherelle Speaks RN [facility] Other malaise and fatigue Diarrhea 787.91 Active Cherelle Speaks RN [facility] Diarrhea PHARYNGITIS 462 Active Cherelle Speaks RN [facility] Acute pharyngitis Colitis 558.9 Active Mima Erazo RN [facility] Other and unspecified noninfectious gastroenteritis and colitis WOUND, OPEN, NOSE ICD-873.20 Inactive Alina Castaneda MD PhD DIABETES, TYPE 2 ICD-250.00 Inactive Alina Castaneda MD PhD HYPERTENSION ICD-401.9 Inactive Alina Castaneda MD PhD URI ICD-465.9 Inactive Alina Castaneda MD PhD CHEST PAIN ICD-786.50 Inactive Alina Castaneda MD PhD FH STROKE ICD-V17.1 Inactive Marvel Charles STATION EXAMINER FATIGUE ICD-780.79 Inactive Alina Castaneda MD PhD [...] Generic Name NDC Status Provider Patient Instruction BD PEN NEEDLE MINI U/F 31G X 5 MM MISC 4 a day INSULIN PEN NEEDLE 01457912703 Active Marvel MARROQUIN Active AMITIZA 24 MCG ORAL CAPS Take one capsule BID for constipation LUBIPROSTONE 39271482939 Active Mima Erazo APRN Active LEVEMIR FLEXTOUCH 100 UNIT/ML SC SOPN 75 units SQ each evening, for diabetes INSULIN DETEMIR 76480693450 Active CRYSTAL Rodrigues Active TRUEPLUS LANCETS 30G MISC 3 a day LANCETS 81300886000 Active Marvel MARROQUIN Active TOLTERODINE TARTRATE 2 MG TABS 1 pill twice daily, for bladder TOLTERODINE TARTRATE 26849113044 No Longer Active Vanessa Hickey MD Active AMITIZA 24 MCG ORAL CAPS Take one capsule BID for constipation. LUBIPROSTONE 37138431783 No Longer Active Vanessa Hickey MD Active LOMOTIL 2.5-0.025 MG ORAL TABS take 1-2 tabs PO after each stool, no more than 8 in 24 hours DIPHENOXYLATE-ATROPINE 77504925715 Active Grace Azam RMA Active FLUVOXAMINE MALEATE 100 MG ORAL TABS take one tab every AM et HS, and take 1/ 2 tab at noon FLUVOXAMINE MALEATE 33343627503 Active Gracekailee Nelsonb RMA Active METOPROLOL SUCCINATE 100 MG [id number]-VEP 1 by mouth daily for blood pressure METOPROLOL SUCCINATE 93614368755 No Longer Active Grace Azam RMA Active METFORMIN HCL ER 500 MG MA54H-NMS Take three tablets by mouth everyday METFORMIN HCL 89066805003 No Longer Active Grace Azam RMA Active LOVAZA 1 GM CAPS 4 daily (for triglycerides) OMEGA-3- ACID ETHYL ESTERS 62607156877 No Longer Active Grace Azam RMA Active TRAZODONE HCL 100 MG ORAL TABS 1 tab by mouth for sleep TRAZODONE HCL 13753506778 No Longer Active Gracekailee Nelsonb RMA Active NOVOFINE 32G X 6 MM MISC use one four times per day INSULIN PEN NEEDLE 11779577814 No Longer Active Grace Azam RMA Active BACTROBAN 2 % CREAM Apply to affected area BID for up to 10 days MUPIROCIN CALCIUM 94397116287 No Longer Active Grace Azam RMA Active ZOFRAN 4 MG TABS 1 po q4hr PRN Nausea ONDANSETRON HCL 74092229254 Active Salina Han RMA Active KEFLEX 500 MG CAP 1 po BID x 7 days CEPHALEXIN 93842261450 No Longer Active Cherelle Avila APRN Active FLUVOXAMINE MALEATE 100 MG TABS Take one (1) tablet by mouth am, 1/2 at noon FLUVOXAMINE MALEATE 45626971681 No Longer Active Mima Erazo APRN Active CORICIDIN HBP CONGESTION/COUGH 10-200 MG ORAL CAPS Take as directed on box as needed for cold/flu symptoms DEXTROMETHORPHAN-GUAIFENESIN 27037152210 Active Cherelle Speaks RN [facility] Active OMEGA-3 300 MG ORAL CAPS 4 caps by mouth daily OMEGA-3 FATTY ACIDS 57909278540 Active Cherelle Speaks RN [facility] Active FLUVOXAMINE MALEATE 100 MG ORAL TABS Take 1/2 tab at noon FLUVOXAMINE MALEATE 14355674661 No Longer Active Cherelle Speaks RN [facility] Active [facility] LUBRICANT EYE DROPS 0.4-0.3 % OPHTH SOLN POLYETHYL GLYCOL-PROPYL GLYCOL 82038332181 Active Mima Yoeloinaum RN [facility] Active CLONAZEPAM 1 MG TABS 1/2 pill by mouth three times daily CLONAZEPAM 07017914849 Active Alina Castaneda MD PhD Active MIRALAX POWD 17g by mouth daily, for constipation POLYETHYLENE GLYCOL 3350 05687464845 Active Alina Castaneda MD PhD Active HYDROCODONE-ACETAMINOPHEN 5-325 MG TABS 2 tabs by mouth three times daily for pain HYDROCODONE-ACETAMINOPHEN 18572861380 Active Mima Erazo RN [facility] Active HUMALOG KWIKPEN 100 UNIT/ML SC SOPN 20 units with breakfast, 10 units with lunch, 10 units with dinner, for diabetes INSULIN LISPRO (HUMAN ) 18432759484 Active Alina Castaneda MD PhD Active LATUDA 120 MG ORAL TABS 1 pill by mouth nightly LURASIDONE HCL 82563639954 Active Alina Castaneda MD PhD Active COLACE 100 MG CAPS 1 pill by mouth twice daily, for constipation DOCUSATE SODIUM 88175315232 Active Alina Castaneda MD PhD Active TRUETEST TEST STRP check blood sugars 3x/day GLUCOSE BLOOD 35655239504 Active Marvel Mackenzieglari STATION EXAMINER Active ACCU-CHEK ROSA UZMA Use device to check blood sugars BLOOD GLUCOSE MONITORING SUPPL 29047114515 No Longer Active Maljohn Mackenzieglari STATION EXAMINER Active ACCU-CHEK ROSA INVITR STRP use strips with device to check blood sugars 3 times daily GLUCOSE BLOOD 41346727653 No Longer Active Marvel MENDOZAP Active VERAPAMIL HCL ER 180 MG ORAL CR-TABS 1 pill by mouth twice daily, for migraine prevention VERAPAMIL HCL 36450982837 Active Alina Castaneda MD PhD Active CYCLOBENZAPRINE HCL 10 MG TABS 1 tablet by mouth three times daily, scheduled CYCLOBENZAPRINE HCL 89980544229 No Longer Active Alina Castaneda MD PhD Active HUMALOG 100 UNIT/ML SOLN Take 20 units with breakfast, 10u with lunch and suppetr. INSULIN LISPRO (HUMAN) 96688004476 No Longer Active Alina Castaneda MD PhD Active TRUETEST TEST STRP check sugars 4x/day GLUCOSE BLOOD 11790243540 No Longer Active Alina Castaneda MD PhD Active MORPHINE SULFATE 30 MG TABS 1 pill by mouth twice daily, for pain MORPHINE SULFATE 93593325087 Active Mima Erazo RN [facility] Active ACYCLOVIR 400 MG ORAL TABS 1 pill three times daily x 5 days, for cold sore outbreak ACYCLOVIR 17384874110 No Longer Active Alina Castaneda MD PhD Active PENICILLIN V POTASSIUM 500 MG TABS 1 pill by mouth three times daily PENICILLIN V POTASSIUM 18732448011 No Longer Active Alina Castaneda MD PhD Active UROXATRAL 10 MG HA18E-IHR Take 1 tablet by mouth daily ALFUZOSIN HCL 25420310531 No Longer Active Alina Castaneda MD PhD Active THIOTHIXENE 5 MG CAPS by mouth twice a day THIOTHIXENE 36295369674 No Longer Active Alina Castaneda MD PhD Active ZYPREXA 7.5 MG TABS 1 at HS OLANZAPINE 23905296490 No Longer Active Alina Castaneda MD PhD Active BD INSULIN SYRINGE 28G X 1/2" 1 ML MISC 1 four times per day INSULIN SYRINGE-NEEDLE U-100 64538840489 Active Marvel Charles STATION EXAMINER Active DETROL LA 4 MG [id number]-KJZ Take 1 tablet by mouth daily TOLTERODINE TARTRATE 34755960866 No Longer Active Alina Castaneda MD PhD Active TERESE CONTOUR TEST STRP monitor blood sugars 3x/day GLUCOSE BLOOD 60644955134 No Longer Active Alina Castaneda MD PhD Active EQL TRUETEST TEST STRP Test blood sugar TID GLUCOSE BLOOD 77642779627 No Longer Active Alina Castaneda MD PhD Active FLUTICASONE PROPIONATE 50 MCG/ACT SUSP 2 sprays each nostril qDay x 30 days FLUTICASONE PROPIONATE 64123175828 No Longer Active Alina Castaneda MD PhD Active IBUPROFEN 200 MG TABS 1 Q 6 hr. PRN IBUPROFEN 67710463699 No Longer Active Alina Castaneda MD PhD Active NIACIN ER 500 MG CR-TABS 4 qHS (for triglycerides) NIACIN 07893274937 No Longer Active Alina Castaneda MD PhD Active ALFUZOSIN HCL ER 10 MG [id number]-WRV 1 tablet daily ALFUZOSIN HCL 31576869489 Active Vanessa Hickey MD Active SAPHRIS 5 MG SUBL by mouth twice a day ASENAPINE MALEATE 29424995845 No Longer Active Maliheh Ziglari STATION EXAMINER Active ACETAMINOPHEN 500 MG TABS 2 Q 6 hr. PRN ACETAMINOPHEN 19046435213 No Longer Active Maliheh Ziglari STATION EXAMINER Active ORPHENADRINE CITRATE ER 100 MG FO42M-XBE 1 every 12 hr. as needed ORPHENADRINE CITRATE 09460453152 No Longer Active Alina Castaneda MD PhD Active NIACIN CR 500 MG CR-TABS 2 qHS NIACIN 92664684631 No Longer Active Alina Castaneda MD PhD Active AMOXICILLIN 500 MG CAPS 2 po BID x 10 days AMOXICILLIN 88258822096 No Longer Active Alina Castaneda MD PhD Active HYDROCODONE-ACETAMINOPHEN 7.5-325 MG TABS 1 four times a day as needed for pain HYDROCODONE-ACETAMINOPHEN 60769974038 No Longer Active Alina Castaneda MD PhD Active DOXEPIN HCL 10 MG CAPS Take 1 tablet by mouth daily DOXEPIN HCL 31109627830 No Longer Active Salina Han A Active NAVANE 10 MG CAPS 1/2 tablet twice a day THIOTHIXENE No Longer Active Salina Han A Active CYCLOBENZAPRINE HCL 10 MG TABS 1/2 tablet by mouth every 8 hours as needed for muscle spasms CYCLOBENZAPRINE HCL 81670459113 No Longer Active Alina Castaneda MD PhD Active BACTROBAN 2 % CREAM apply to ear and nose twice daily MUPIROCIN CALCIUM 34982387543 No Longer Active Ailna Castaneda MD PhD Active HYDROCODONE-ACETAMINOPHEN 5-325 MG TABS take one tablet by mouth every four hours as needed for pain HYDROCODONE-ACETAMINOPHEN 91777116069 No Longer Active Alina Castaneda MD PhD Active ZOLPIDEM TARTRATE 10 MG TABS take at bedtime ZOLPIDEM TARTRATE 42969292731 Active Alina Castaneda MD PhD Active ZYPREXA 5 MG TABS take one tablet by mouth every evening OLANZAPINE 27271830534 No Longer Active Alina Castaneda MD PhD Active ALBUTEROL SULFATE 0.083 % NEBU SOLN one vial per nebulizer TID and PRN cough/ soa ALBUTEROL SULFATE 54202808717 No Longer Active Alina Castaneda MD PhD Active GUAIFENESIN 600 MG RC31X-SLP 1 tablet by mouth twice daily if needed for cough GUAIFENESIN 01901249614 No Longer Active Marvel Charles STATION EXAMINER Active AZITHROMYCIN 500 MG SOLR 1 po q day AZITHROMYCIN 22927607272 No Longer Active Alina Castaneda MD PhD Active PROMETHAZINE-CODEINE 6.25-10 MG/5ML SYRP 1 tsp po q 6 hours prn cough PROMETHAZINE-CODEINE 83262478293 No Longer Active Alina Castaneda MD PhD Active CEFDINIR 300 MG CAPS by mouth twice a day CEFDINIR 72273299830 No Longer Active Alina Castaneda MD PhD Active METFORMIN HCL 500 MG UA92G-NHN Take 3 tablets by mouth everyday METFORMIN HCL 97109830286 No Longer Active Alina Castaneda MD PhD Active LEVEMIR 100 UNIT/ML SOLN 90 units SQ qHS INSULIN DETEMIR 22383829504 No Longer Active Marvel MARROQUIN Active TOPROL XL 100 MG ZF90R-WQO 1 @ HS METOPROLOL SUCCINATE 66010316924 No Longer Active Marvel MARROQUIN Active ALLOPURINOL 300 MG TABS Take one by mouth daily ALLOPURINOL 26975011529 Active Alina Castaneda MD PhD Active ZYPREXA 10 MG TABS Take one by mouth daily OLANZAPINE 10507074122 No Longer Active Alina Castaneda MD PhD Active NOVOLOG 100 UNIT/ML SOLN 40 units with every meal INSULIN ASPART 65055669665 No Longer Active Alina Castaneda MD PhD Active VERAPAMIL HCL CR 120 MG TAB CR 1 qPM VERAPAMIL HCL 36982442900 No Longer Active Salina Ervinamelia ROJAS Active ZYPREXA 15 MG TABS Take 1 tablet by mouth daily OLANZAPINE 04472149370 No Longer Active Marvel MARROQUIN Active LISINOPRIL 20 MG TABS 1 BID LISINOPRIL 07194988738 Active Alina Castaneda MD PhD Active ALBUTEROL SULFATE (2.5 MG/3ML) 0.083% NEBU 1 neb tid and prn cough ALBUTEROL SULFATE 18834192562 No Longer Active Alina Castaneda MD PhD Active TRAVATAN Z 0.004 % SOLN 1 gtt each eye daily TRAVOPROST 34222354812 Active CRYSTAL Suarez Active LANTUS 100 UNIT/ML SOLN 60 units sq q hs INSULIN GLARGINE 30441953779 No Longer Active CRYSTAL Suarez Active ALBUTEROL SULFATE (2.5 MG/3ML) 0.083% NEBU 1 neb tid and prn cough ALBUTEROL SULFATE (2.5 MG/3ML) 0.083% NEBU 940453 ALBUTEROL SULFATE Inactive ZYPREXA 15 MG TABS Take 1 tablet by mouth daily ZYPREXA 15 MG TABS 050553 OLANZAPINE Inactive VERAPAMIL HCL CR 120 MG TAB CR 1 qPM VERAPAMIL HCL CR 120 MG TAB CR VERAPAMIL HCL Inactive ZYPREXA 10 MG TABS Take one by mouth daily ZYPREXA 10 MG TABS 165598 OLANZAPINE Inactive TOPROL XL 100 MG [id number]-SRS 1 @ HS TOPROL XL 100 MG DE41A-ZCR METOPROLOL SUCCINATE Inactive LEVEMIR 100 UNIT/ML SOLN 90 units SQ qHS LEVEMIR 100 UNIT/ML SOLN INSULIN DETEMIR Inactive PROMETHAZINE-CODEINE 6.25-10 MG/5ML SYRP 1 tsp po q 6 hours prn cough PROMETHAZINE-CODEINE 6.25-10 MG/5ML SYRP 110181 PROMETHAZINE- CODEINE Inactive GUAIFENESIN 600 MG QF83G-KED 1 tablet by mouth twice daily if needed for cough GUAIFENESIN 600 MG LG85L-HYA GUAIFENESIN Inactive ALBUTEROL SULFATE 0.083 % NEBU SOLN one vial per nebulizer TID and PRN cough/ soa ALBUTEROL SULFATE 0.083 % NEBU SOLN 625482 ALBUTEROL SULFATE Inactive ZYPREXA 5 MG TABS take one tablet by mouth every evening ZYPREXA 5 MG TABS 882650 OLANZAPINE Inactive HYDROCODONE-ACETAMINOPHEN 5-325 MG TABS take one tablet by mouth every four hours as needed for pain HYDROCODONE-ACETAMINOPHEN 5-325 MG TABS 672213 HYDROCODONE-ACETAMINOPHEN Inactive BACTROBAN 2 % CREAM apply to ear and nose twice daily BACTROBAN 2 % CREAM 040744 MUPIROCIN CALCIUM Inactive CYCLOBENZAPRINE HCL 10 MG TABS 1/2 tablet by mouth every 8 hours as needed for muscle spasms CYCLOBENZAPRINE HCL 10 MG TABS 540551 CYCLOBENZAPRINE HCL Inactive NAVANE 10 MG CAPS 1/2 tablet twice a day NAVANE 10 MG CAPS THIOTHIXENE Inactive DOXEPIN HCL 10 MG CAPS Take 1 tablet by mouth daily DOXEPIN HCL 10 MG CAPS 1413852 DOXEPIN HCL Inactive HYDROCODONE-ACETAMINOPHEN 7.5-325 MG TABS 1 four times a day as needed for pain HYDROCODONE-ACETAMINOPHEN 7.5-325 MG TABS 238845 HYDROCODONE-ACETAMINOPHEN Inactive NIACIN CR 500 MG CR-TABS 2 qHS NIACIN CR 500 MG CR- TABS NIACIN Inactive ORPHENADRINE CITRATE ER 100 MG QO41L-HGC 1 every 12 hr. as needed ORPHENADRINE CITRATE ER 100 MG [id number]-UPL ORPHENADRINE CITRATE Inactive ACETAMINOPHEN 500 MG TABS 2 Q 6 hr. PRN ACETAMINOPHEN 500 MG TABS 299943 ACETAMINOPHEN Inactive SAPHRIS 5 MG SUBL by mouth twice a day SAPHRIS 5 MG SUBL ASENAPINE MALEATE Inactive NIACIN ER 500 MG CR-TABS 4 qHS (for triglycerides) NIACIN ER 500 MG CR-TABS NIACIN Inactive IBUPROFEN 200 MG TABS 1 Q 6 hr. PRN IBUPROFEN 200 MG TABS 573894 IBUPROFEN Inactive FLUTICASONE PROPIONATE 50 MCG/ACT SUSP 2 sprays each nostril qDay x 30 days FLUTICASONE PROPIONATE 50 MCG/ACT SUSP 549312 FLUTICASONE PROPIONATE Inactive EQL TRUETEST TEST STRP Test blood sugar TID EQL TRUETEST TEST STRP GLUCOSE BLOOD Inactive TERESE CONTOUR TEST STRP monitor blood sugars 3x/day TERESE CONTOUR TEST STRP GLUCOSE BLOOD Inactive DETROL LA 4 MG [id number]-CQE Take 1 tablet by mouth daily DETROL LA 4 MG AO32B-MMG TOLTERODINE TARTRATE Inactive ZYPREXA 7.5 MG TABS 1 at HS ZYPREXA 7.5 MG TABS 237585 OLANZAPINE Inactive THIOTHIXENE 5 MG CAPS by mouth twice a day THIOTHIXENE 5 MG CAPS 690722 THIOTHIXENE Inactive UROXATRAL 10 MG QA68V-GCS Take 1 tablet by mouth daily UROXATRAL 10 MG CU37E-BOU ALFUZOSIN HCL Inactive ACYCLOVIR 400 MG ORAL TABS 1 pill three times daily x 5 days, for cold sore outbreak ACYCLOVIR 400 MG ORAL TABS 468519 ACYCLOVIR Inactive TRUETEST TEST STRP check sugars 4x/day TRUETEST TEST STRP GLUCOSE BLOOD Inactive HUMALOG 100 UNIT/ML SOLN Take 20 units with breakfast, 10u with lunch and suppetr. HUMALOG 100 UNIT/ML SOLN INSULIN LISPRO ( HUMAN) Inactive CYCLOBENZAPRINE HCL 10 MG TABS 1 tablet by mouth three times daily, scheduled CYCLOBENZAPRINE HCL 10 MG TABS 453242 CYCLOBENZAPRINE HCL Inactive ACCU-CHEK ROSA INVITR STRP use strips with device to check blood sugars 3 times daily ACCU-CHEK ROSA INVITR STRP GLUCOSE BLOOD Inactive ACCU-CHEK ROSA UZMA Use device to check blood sugars ACCU-CHEK ROSA UZMA BLOOD GLUCOSE MONITORING SUPPL Inactive FLUVOXAMINE MALEATE 100 MG ORAL TABS Take 1/2 tab at noon FLUVOXAMINE MALEATE 100 MG ORAL TABS 519897 FLUVOXAMINE MALEATE Inactive FLUVOXAMINE MALEATE 100 MG TABS Take one (1) tablet by mouth am, 1/2 at noon FLUVOXAMINE MALEATE 100 MG TABS 747881 FLUVOXAMINE MALEATE Inactive BACTROBAN 2 % CREAM Apply to affected area BID for up to 10 days BACTROBAN 2 % CREAM 946263 MUPIROCIN CALCIUM Inactive NOVOFINE 32G X 6 MM MISC use one four times per day NOVOFINE 32G X 6 MM MISC INSULIN PEN NEEDLE Inactive TRAZODONE HCL 100 MG ORAL TABS 1 tab by mouth for sleep TRAZODONE HCL 100 MG ORAL TABS 021950 TRAZODONE HCL Inactive LOVAZA 1 GM CAPS 4 daily (for triglycerides) LOVAZA 1 GM CAPS 888704 KABHT-3-GPOW ETHYL ESTERS Inactive METFORMIN HCL ER 500 MG MY86U-CGR Take three tablets by mouth everyday METFORMIN HCL ER 500 MG AJ20F-IJK METFORMIN HCL Inactive METOPROLOL SUCCINATE 100 MG BO37C-LRC 1 by mouth daily for blood pressure METOPROLOL SUCCINATE 100 MG OI83Z-USM METOPROLOL SUCCINATE Inactive AMITIZA 24 MCG ORAL CAPS Take one capsule BID for constipation. AMITIZA 24 MCG ORAL CAPS LUBIPROSTONE Inactive TOLTERODINE TARTRATE 2 MG TABS 1 pill twice daily, for bladder TOLTERODINE TARTRATE 2 MG TABS 914742 TOLTERODINE TARTRATE Inactive CEFDINIR 300 MG CAPS by mouth twice a day CEFDINIR 300 MG CAPS 295586 CEFDINIR Inactive AZITHROMYCIN 500 MG SOLR 1 po q day AZITHROMYCIN 500 MG SOLR 90547833604 AZITHROMYCIN Inactive AMOXICILLIN 500 MG CAPS 2 po BID x 10 days AMOXICILLIN 500 MG CAPS 288798 AMOXICILLIN Inactive PENICILLIN V POTASSIUM 500 MG TABS 1 pill by mouth three times daily PENICILLIN V POTASSIUM 500 MG TABS 448192 PENICILLIN V POTASSIUM Inactive KEFLEX 500 MG CAP 1 po BID x 7 days KEFLEX 500 MG CAP 369070 CEPHALEXIN Inactive Immunizations Vaccine Administration Date Value [...] Fluvirin, Fluarix, Agriflu(>=18 yo)) Fluzone (>3 yrs.) [[id number]] Influenza, seasonal, injectable pneumococcal immunization administered Pneumovax [...] E&M - 3141-9 245 [lb_av] Weight Measured Diagnostic Results Date Name Value Unit Range Description Lab Report: Basic Metabolic Panel, HGBA1C, MICROALBUMIN - Chemistry sodium, serum 137 mmol/L 876-229 2879/05/19 potassium, serum 5.2 mmol/L 3.5-5.2 chloride, serum [...] Panel - Chemistry sodium, serum 137 mmol/L 002-174 3859/10/12 potassium, serum 4.8 mmol/L 3.5-5.2 chloride, serum 102 mmol/L 98-107 carbon dioxide, venous blood 27.6 mmol/L 21.0-32.0 blood glucose 168 mg/dL 65-110 calcium, serum 9.0 mg/dL 8.5-10.1 urea nitrogen, blood 15 mg/dL 7-18 creatinine, serum 1.04 mg/dL 0.55-1.30 sodium, serum 138 mmol/L 034-193 9378/11/11 potassium, serum 4.7 mmol/L 3.5-5.2 chloride, serum [...] % 11.6-14.8 platelet count 252 10^3/MM^3 10*3/mm3 167-542 6241/10/12 leukocyte count, blood 5.8 10^3/MM^3 10*3/mm3 4.6-10.2 [...] 240 10^3/MM^3 10*3/mm3 142-424 Lab Report: Chlamydia/GC APTIMA/15823, HIV-1/2 Agn/Dominga/60083, RPR (DX) W ... - Chemistry hepatitis B surface antigen NON-REACTIVE NON-REACTIVE Lab Report: Chlamydia/GC APTIMA/23207, HIV-1/2 Agn/Dominga/44009, RPR (DX) W ... - Lab chlamydia DNA probe NOT DETECTED NOT DETECTED Lab Report: Chlamydia/GC APTIMA/54710, HIV-1/2 Agn/Dominga/48070, RPR (DX) W ... - Microbiology Neisseria gonorrhoeae DNA probe NOT DETECTED NOT DETECTED Lab Report: Chlamydia/GC APTIMA/40322, HIV-1/2 Agn/Dominga/20735, RPR (DX) W ... - Serology rapid plasma reagin antibody titer NON-REACTIVE NON-REACTIVE Lab Report: HGBA1C - Chemistry hemoglobin A1C, blood, as % of total hemoglobin 6.1 % 4.3-6.0 hemoglobin A1C, blood, as % of total hemoglobin 6.3 % 4.3-6.0 Lab Report: Lipid Panel, HEPATIC PANEL, MICROALBUMIN, CBC - Chemistry cholesterol, serum 131 mg/dL 566-469 9621/06/03 triglyceride, serum, fasting 383 mg/dL 30-200 HDL [...] 4.7 mg/dL 2.6-7.2 cholesterol, serum 142 mg/dL 584-614 9612/06/26 triglyceride, serum, fasting 272 mg/dL 30-200 HDL [...] negative Encounters Code Encounter Date Provider Facility CPT-75590 Level 3 Est. Patient 14:39:00 GRADUATE NURSE Vanessa Hickey MD -[id number] Level 2 Est. Patient 18:43:34 CDT Mima Erazo [facility] CPT-87923 Level 3 Est. Patient 16:22:09 CDT Cherelle Avila [facility] CPT-08392 Level 4 Est. Patient 17:55:14 CDT Mima Jeffliudmila [facility] CPT-76247 Level 2 Est. Patient 17:13:21 CDT Alina Castaneda MD [facility] CPT-62474 Level 3 Est. Patient 14:46:15 CDT Vanessa Hickey MD -23410 Level 3 Est. Patient 09:34:56 CDT Alina Castaneda MD [facility]97836 Level 3 Est. Patient 21:40:19 CDT Mima Erazo [facility] CPT-36893 Level 3 Est. Patient 09:26:40 CDT Marvel Charles [facility]-54002 Level 3 Est. Patient 12:36:43 CDT Vanessa Hickey MD [facility]51820 Level 3 Est. Patient 12:57:49 CDT Vanessa Hickey MD [facility]04993 Level 3 Est. Patient 00:28:25 CDT Alina Castaneda MD [facility]25296 Level 2 Est. Patient 12:52:14 CDT Alina Castaneda MD [facility]40067 Level 3 Est. Patient 11:51:18 GRADUATE NURSE Alina Castaneda MD [facility]-75596 Level 3 Est. Patient 10:09:22 GRADUATE NURSE Alina Castaneda MD [facility]89731 Level 3 Est. Patient 14:36:26 GRADUATE NURSE Marvel Charles [facility]58478 Level 3 Est. Patient 13:34:47 GRADUATE NURSE Alina Castaneda MD [facility]58510 Level 3 Est. Patient 19:52:08 GRADUATE NURSE Alina Castaneda MD [facility]67332 Level 3 Est. Patient 10:01:51 GRADUATE NURSE Marvel Charles [facility]-01217 Level 3 Est. Patient 21:54:06 CDT Vanessa Hickey MD -48423 Level 3 Est. Patient 08:54:46 CDT Alina Castaneda MD [facility]62493 Level 3 Est. Patient 09:32:11 CDT Marvel Charles [facility]35239 Level 3 Est. Patient 12:02:49 CDT Alina Castaneda MD [facility]94747 Level 3 Est. Patient 19:17:33 CDT Alina Castaneda MD [facility]36718 Level 3 Est. Patient 13:19:10 CDT Marvel Charles [facility]36865 Level 3 Est. Patient 08:20:05 CDT Alina Castaneda MD [place] [address] Level 3 Est. Patient 15:17:18 CDT Alina Castaneda MD [facility]30326 Level 3 Est. Patient 14:25:36 GRADUATE NURSE Marvel Charles [facility] CPT-17609 Level 3 Est. Patient 10:09:15 GRADUATE NURSE Marvel Charles [facility]-61643 Level 3 Est. Patient 21:28:43 CDT Alina Castaneda MD [facility]-48136 Level 3 Est. Patient 15:20:11 CDT [place] Charles [facility]-80433 Level 4 Est. Patient 19:08:12 CDT Alina Castaneda MD [facility]-16829 Level 3 Est. Patient 15:06:39 CDT [facility] Level 4 Est. Patient 17:48:15 CDT Alina Castaneda MD [facility]-55771 Level 3 Est. Patient 14:53:49 CDT Alina Castaneda MD [facility]-81041 Level 3 Est. Patient 09:35:16 CDT Alina Castaneda MD [facility]-18715 Level 3 Est. Patient 12:23:22 CDT Alina Castaneda MD [facility]-66059 Level 3 Est. Patient 16:19:15 CDT Alina Castaneda MD [facility]-82738 Level 3 Est. Patient 21:39:56 GRADUATE NURSE Alina Castaneda MD [facility]-05773 Level 4 Est. Patient 14:12:56 GRADUATE NURSE Alina Castaneda MD [facility]-79779 Level 2 Est. Patient 15:34:57 GRADUATE NURSE Alina Castaneda MD [facility]-41430 Level 3 Est. Patient 12:17:04 GRADUATE NURSE Alina Castaneda MD [facility]-83048 Level 3 Est. Patient 09:18:18 GRADUATE NURSE [place] Araceli [facility]-86142 Level 2 Est. Patient 21:50:24 CDT Alina Castaneda MD [facility]13302 Level 3 Est. Patient 09:17:28 CDT Marvel Charles [facility]-37580 Level 4 Est. Patient 18:54:02 CDT Alina Castaneda MD [facility]37942 Level 3 Est. Patient 10:47:10 CDT Alina Castaneda MD [facility]47298 Level 3 Est. Patient 09:22:20 CDT [place] Araceli [facility]-62804 Level 3 Est. Patient 16:39:43 CDT [place] Araceli [facility]-03345 Level 3 Est. Patient 16:05:16 CDT Alina Castaneda MD [facility]54084 Level 3 Est. Patient 00:29:15 CDT Alina Castaneda MD [facility]83897 Level 3 Est. Patient 10:49:22 GRADUATE NURSE [place] Araceli [facility]95060 Level 3 Est. Patient 21:30:19 GRADUATE NURSE Alina Castaneda MD [facility]14718 Level 4 Est. Patient 17:04:11 GRADUATE NURSE Marvel Charles [facility]16272 Level 3 Est. Patient 15:34:11 GRADUATE NURSE Zainnivia Araceli [facility]94345 Level 2 Est. Patient 12:51:58 GRADUATE NURSE Alina Castaneda MD PhD [facility] CPT-33255 Level 3 Est. Patient 13:20:01 GRADUATE NURSE Alina Castaneda MD PhD [facility] CPT-29723 Level 3 Est. Patient 09:23:35 CDT Alina Castaneda MD PhD [facility] Procedures Code Procedure Name Date Entry Date Standard Description CPT-07128 Bladder Scan 14:39:01 GRADUATE NURSE CPT-TCMM Transitional Care Mgmt-Moderate 10:30:19 GRADUATE NURSE CPT-64976 Bladder Scan 12:36:44 CDT CPT-38017 Bladder Scan 21:54:06 CDT CPT-G0008 Administration of Influenza Virus Vaccine 13:05:26 CDT CPT-27144 Fluzone Quadrivalent Intramuscular Suspension 0.5 ML 13: 05:26 CDT CPT-26425 Administration single or combination vaccine inc oral 11 :49:51 CDT CPT-27901 Pneumovax 11:49:51 CDT CPT-25799 Ribs unilateral 2V 12:37:22 GRADUATE NURSE CPT-45656 Chest 2V Frontal and Lat 17:15:26 CDT CPT-73521 Abx/Therapy Injection 18:54:02 CDT CPT-J0696 Rocephin 1000 mg (Ceftriaxone) 16:00:32 CDT CPT-07545 Chest 2V Frontal and Lat 15:26:45 CDT CPT-94399 Chest 2V Frontal and Lat 10:23:27 CDT CPT-35190 Venipuncture Draw Fee 10:11:00 CDT CPT-37085 Administration single or combination vaccine inc oral 11 :56:38 CDT CPT-10780 Influenza split virus > age 3 11:56:38 CDT CPT-44289 Venipuncture Draw Fee 08:49:54 GRADUATE NURSE CPT-59556 EKG Trac and Interp 17:54:19 GRADUATE NURSE
--- OUTSIDE RECORDS SUMMARY | 2018-07-02 13:24 | XMS REPORT | Clinical Summary ---
Author Author Admin, TERELL Organization [facility] Address Unknown Phone Unavailable Allergies, Adverse Reactions, 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 Erazo MASTER COSMETOLOGIST Benign paroxysmal positional vertigo Vertigo, benign paroxysmal position 386.11 Inactive Mima Erazo MASTER COSMETOLOGIST Benign paroxysmal positional vertigo High-risk sexual behavior V69.2 Active Alina Castaneda MD PhD High-risk sexual behavior Erectile dysfunction 302.72 Active Alina Castaneda MD PhD Psychosexual dysfunction with inhibited sexual excitement Constipation 564.00 Active Alina Castaneda MD PhD Constipation, unspecified Skin lesion 709.9 Active Alina Castaneda MD PhD Unspecified disorder of skin and subcutaneous tissue Malaise and fatigue 780.79 Active Cherelle Speaks MASTER COSMETOLOGIST Other malaise and fatigue Diarrhea 787.91 Active Cherelle Speaks MASTER COSMETOLOGIST Diarrhea PHARYNGITIS 462 Active Cherelle Speaks MASTER COSMETOLOGIST Acute pharyngitis Colitis 558.9 Active Mima Erazo MASTER COSMETOLOGIST Other and unspecified noninfectious gastroenteritis and colitis WOUND, OPEN, NOSE ICD-873.20 Inactive Alina Castaneda MD PhD DIABETES, TYPE 2 ICD-250.00 Inactive Alina Castaneda MD PhD HYPERTENSION ICD-401.9 Inactive Alina Castaneda MD PhD URI ICD-465.9 Inactive Alina Castaneda MD PhD CHEST PAIN ICD-786.50 Inactive Alina Castaneda MD PhD FH STROKE ICD-V17.1 Inactive Marvel Charles COGNOS ANALYST FATIGUE ICD-780.79 Inactive Alina Castaneda MD PhD [...] Castaneda MD PhD BRONCHITIS, ACUTE ICD-466.0 Inactive lAina Castaneda MD PhD PNEUMONIA, ORGANISM UNSPECIFIED ICD-486 [...] Generic Name NDC Status Provider Patient Instruction COLACE 100 MG CAPS 1 pill by mouth twice daily, for constipation DOCUSATE SODIUM 78597128298 No Longer Active Mima Erazo APRN Active FLONASE ALLERGY RELIEF 50 MCG/ACT NASAL SUSP One spray each nostril BID x 1 week then daily FLUTICASONE PROPIONATE 12645677937 Active Mimacecily Erazo APRN Active BD PEN NEEDLE MINI U/F 31G X 5 MM MISC 4 a day INSULIN PEN NEEDLE 03644884679 Active Mallashondaeh Ziglari COGNOS ANALYST Active AMITIZA 24 MCG ORAL CAPS Take one capsule BID for constipation LUBIPROSTONE 33034128495 Active Mimacecily Erazo APRN Active LEVEMIR FLEXTOUCH 100 UNIT/ML SC SOPN 75 units SQ each evening, for diabetes INSULIN DETEMIR 69058514419 Active Mima Erazo APRN Active TRUEPLUS LANCETS 30G MISC 3 a day LANCETS 39198972195 Active Mallashondaeh Ziglari COGNOS ANALYST Active TOLTERODINE TARTRATE 2 MG TABS 1 pill twice daily, for bladder TOLTERODINE TARTRATE 36407533176 No Longer Active Vanessa Hickey MD Active AMITIZA 24 MCG ORAL CAPS Take one capsule BID for constipation. LUBIPROSTONE 08508429514 No Longer Active Vanessa Hickey MD Active LOMOTIL 2.5-0.025 MG ORAL TABS take 1-2 tabs PO after each stool, no more than 8 in 24 hours DIPHENOXYLATE-ATROPINE 65756606544 Active Grace Nascimento RMA Active FLUVOXAMINE MALEATE 100 MG ORAL TABS take one tab every AM et HS, and take 1/ 2 tab at noon FLUVOXAMINE MALEATE 73633249739 Active Gracekailee Nascimento RMA Active METOPROLOL SUCCINATE 100 MG [id number] 1 by mouth daily for blood pressure METOPROLOL SUCCINATE 43733657431 No Longer Active Grace Nascimento RMA Active METFORMIN HCL ER 500 MG [id number] Take three tablets by mouth everyday METFORMIN HCL 22521017811 No Longer Active Grace Nascimento RMA Active LOVAZA 1 GM CAPS 4 daily (for triglycerides) OMEGA-3- ACID ETHYL ESTERS 54295301371 No Longer Active Grace Nascimento RMA Active TRAZODONE HCL 100 MG ORAL TABS 1 tab by mouth for sleep TRAZODONE HCL 95729779244 No Longer Active Grace Nascimento RMA Active NOVOFINE 32G X 6 MM MISC use one four times per day INSULIN PEN NEEDLE 54304146938 No Longer Active Grace Nascimento RMA Active BACTROBAN 2 % CREAM Apply to affected area BID for up to 10 days MUPIROCIN CALCIUM 12801994958 No Longer Active Grace Nascimento RMA Active ZOFRAN 4 MG TABS 1 po q4hr PRN Nausea ONDANSETRON HCL 39784515639 Active Salina Han RMA Active KEFLEX 500 MG CAP 1 po BID x 7 days CEPHALEXIN 94599779260 No Longer Active Cherelle Avila APRN Active FLUVOXAMINE MALEATE 100 MG TABS Take one (1) tablet by mouth am, 1/2 at noon FLUVOXAMINE MALEATE 89776701087 No Longer Active Mima Erazo MASTER COSMETOLOGIST Active CORICIDIN HBP CONGESTION/COUGH 10-200 MG ORAL CAPS Take as directed on box as needed for cold/flu symptoms DEXTROMETHORPHAN-GUAIFENESIN 98171987479 Active Cherelle Speaks MASTER COSMETOLOGIST Active OMEGA-3 300 MG ORAL CAPS 4 caps by mouth daily OMEGA-3 FATTY ACIDS 82730187828 Active Mima Erazo MASTER COSMETOLOGIST Active FLUVOXAMINE MALEATE 100 MG ORAL TABS Take 1/2 tab at noon FLUVOXAMINE MALEATE 71916477196 No Longer Active Cherelle Speaks MASTER COSMETOLOGIST Active [facility] LUBRICANT EYE DROPS 0.4-0.3 % OPHTH SOLN POLYETHYL GLYCOL-PROPYL GLYCOL 28954280473 Active Mima Erazo MASTER COSMETOLOGIST Active CLONAZEPAM 1 MG TABS 1/2 pill by mouth three times daily CLONAZEPAM 33036056817 Active Mason Loredo MD Active MIRALAX POWD 17g by mouth daily, for constipation POLYETHYLENE GLYCOL 3350 82473249833 Active Alina Castaneda MD PhD Active HYDROCODONE-ACETAMINOPHEN 5-325 MG TABS 2 tabs by mouth three times daily for pain HYDROCODONE-ACETAMINOPHEN 65395146448 Active Mima Erazo MASTER COSMETOLOGIST Active HUMALOG KWIKPEN 100 UNIT/ML SC SOPN 20 units with breakfast, 10 units with lunch, 10 units with dinner, for diabetes INSULIN LISPRO (HUMAN ) 87310994501 Active Alina Castaneda MD PhD Active LATUDA 120 MG ORAL TABS 1 pill by mouth nightly LURASIDONE HCL 22386249801 Active Alina Castaneda MD PhD Active TRUETEST TEST STRP check blood sugars 3x/day GLUCOSE BLOOD 80292121024 Active Marvel Charlse COGNOS ANALYST Active ACCU-CHEK ROSA UZMA Use device to check blood sugars BLOOD GLUCOSE MONITORING SUPPL 88559508326 No Longer Active Marvel Charles COGNOS ANALYST Active ACCU-CHEK ROSA INVITR STRP use strips with device to check blood sugars 3 times daily GLUCOSE BLOOD 15157657116 No Longer Active Marvel MARROQUIN Active VERAPAMIL HCL ER 180 MG ORAL CR-TABS 1 pill by mouth twice daily, for migraine prevention VERAPAMIL HCL 99745870869 Active CRYSTAL Rodrigues Active CYCLOBENZAPRINE HCL 10 MG TABS 1 tablet by mouth three times daily, scheduled CYCLOBENZAPRINE HCL 42103477257 No Longer Active Alina Castaneda MD PhD Active HUMALOG 100 UNIT/ML SOLN Take 20 units with breakfast, 10u with lunch and suppetr. INSULIN LISPRO (HUMAN) 44277699475 No Longer Active Alina Castaneda MD PhD Active TRUETEST TEST STRP check sugars 4x/day GLUCOSE BLOOD 50228615059 No Longer Active Alina Castaneda MD PhD Active MORPHINE SULFATE 30 MG TABS 1 pill by mouth twice daily, for pain MORPHINE SULFATE 57104995798 Active Mason Loredo MD Active ACYCLOVIR 400 MG ORAL TABS 1 pill three times daily x 5 days, for cold sore outbreak ACYCLOVIR 50273510795 No Longer Active Alina Castaneda MD PhD Active PENICILLIN V POTASSIUM 500 MG TABS 1 pill by mouth three times daily PENICILLIN V POTASSIUM 62912436128 No Longer Active Alina Castaneda MD PhD Active UROXATRAL 10 MG [id number]-REM Take 1 tablet by mouth daily ALFUZOSIN HCL 07616098425 No Longer Active Alina Castaneda MD PhD Active THIOTHIXENE 5 MG CAPS by mouth twice a day THIOTHIXENE 43572881893 No Longer Active Alina Castaneda MD PhD Active ZYPREXA 7.5 MG TABS 1 at HS OLANZAPINE 70149146604 No Longer Active Alina Castaneda MD PhD Active BD INSULIN SYRINGE 28G X 1/2" 1 ML MISC 1 four times per day INSULIN SYRINGE-NEEDLE U-100 05740759813 Active Marvel MARROQUIN Active DETROL LA 4 MG RF79P-TOC Take 1 tablet by mouth daily TOLTERODINE TARTRATE 30014044094 No Longer Active Alina Castaneda MD PhD Active TERESE CONTOUR TEST STRP monitor blood sugars 3x/day GLUCOSE BLOOD 67060707198 No Longer Active Alina Castaneda MD PhD Active EQL TRUETEST TEST STRP Test blood sugar TID GLUCOSE BLOOD 26238510360 No Longer Active Alina Castaneda MD PhD Active FLUTICASONE PROPIONATE 50 MCG/ACT SUSP 2 sprays each nostril qDay x 30 days FLUTICASONE PROPIONATE 01259024013 No Longer Active Alina Castaneda MD PhD Active IBUPROFEN 200 MG TABS 1 Q 6 hr. PRN IBUPROFEN 24889397185 No Longer Active Alina Castaneda MD PhD Active NIACIN ER 500 MG CR-TABS 4 qHS (for triglycerides) NIACIN 12920829521 No Longer Active Alina Castaneda MD PhD Active ALFUZOSIN HCL ER 10 MG [id number]-QDD 1 tablet daily ALFUZOSIN HCL 56031612983 Active CRYSTAL Rodrigues Active SAPHRIS 5 MG SUBL by mouth twice a day ASENAPINE MALEATE 00911275851 No Longer Active Marvel MARROQUIN Active ACETAMINOPHEN 500 MG TABS 2 Q 6 hr. PRN ACETAMINOPHEN 76278782416 No Longer Active Marvel MARROQUIN Active ORPHENADRINE CITRATE ER 100 MG [id number]-QBT 1 every 12 hr. as needed ORPHENADRINE CITRATE 63255411818 No Longer Active Alina Castaneda MD PhD Active NIACIN CR 500 MG CR-TABS 2 qHS NIACIN 71262666108 No Longer Active Alina Castaneda MD PhD Active AMOXICILLIN 500 MG CAPS 2 po BID x 10 days AMOXICILLIN 77361115956 No Longer Active Alina Castaneda MD PhD Active HYDROCODONE-ACETAMINOPHEN 7.5-325 MG TABS 1 four times a day as needed for pain HYDROCODONE-ACETAMINOPHEN 95645398073 No Longer Active Alina Castaneda MD PhD Active DOXEPIN HCL 10 MG CAPS Take 1 tablet by mouth daily DOXEPIN HCL 36325935941 No Longer Active Salina Han A Active NAVANE 10 MG CAPS 1/2 tablet twice a day THIOTHIXENE No Longer Active Salina Han A Active CYCLOBENZAPRINE HCL 10 MG TABS 1/2 tablet by mouth every 8 hours as needed for muscle spasms CYCLOBENZAPRINE HCL 98862273474 No Longer Active Alina Castaneda MD PhD Active BACTROBAN 2 % CREAM apply to ear and nose twice daily MUPIROCIN CALCIUM 62064602287 No Longer Active Alina Castaneda MD PhD Active HYDROCODONE-ACETAMINOPHEN 5-325 MG TABS take one tablet by mouth every four hours as needed for pain HYDROCODONE-ACETAMINOPHEN 67097155181 No Longer Active Alina Castaneda MD PhD Active ZOLPIDEM TARTRATE 10 MG TABS take at bedtime ZOLPIDEM TARTRATE 33973743258 Active Alina Castaneda MD PhD Active ZYPREXA 5 MG TABS take one tablet by mouth every evening OLANZAPINE 18272547687 No Longer Active Alina Castaneda MD PhD Active ALBUTEROL SULFATE 0.083 % NEBU SOLN one vial per nebulizer TID and PRN cough/ soa ALBUTEROL SULFATE 83861361442 No Longer Active Alina Castaneda MD PhD Active GUAIFENESIN 600 MG [id number]-DJA 1 tablet by mouth twice daily if needed for cough GUAIFENESIN 52122012477 No Longer Active Marvel MARROQUIN Active AZITHROMYCIN 500 MG SOLR 1 po q day AZITHROMYCIN 94753944657 No Longer Active Alina Castaneda MD PhD Active PROMETHAZINE-CODEINE 6.25-10 MG/5ML SYRP 1 tsp po q 6 hours prn cough PROMETHAZINE-CODEINE 46551353704 No Longer Active Alina Castaneda MD PhD Active CEFDINIR 300 MG CAPS by mouth twice a day CEFDINIR 40039874956 No Longer Active Alina Castaneda MD PhD Active METFORMIN HCL 500 MG DO35P-TGH Take 3 tablets by mouth everyday METFORMIN HCL 01997329667 No Longer Active Alina Castaneda MD PhD Active LEVEMIR 100 UNIT/ML SOLN 90 units SQ qHS INSULIN DETEMIR 39657470522 No Longer Active Marvel MARROQUIN Active TOPROL XL 100 MG GS58X-VGE 1 @ HS METOPROLOL SUCCINATE 82154345777 No Longer Active Marvel MARROQUIN Active ALLOPURINOL 300 MG TABS Take one by mouth daily ALLOPURINOL 25768208143 Active Mima Erazo MASTER COSMETOLOGIST Active ZYPREXA 10 MG TABS Take one by mouth daily OLANZAPINE 19086205181 No Longer Active Alina Castaneda MD PhD Active NOVOLOG 100 UNIT/ML SOLN 40 units with every meal INSULIN ASPART 17651216835 No Longer Active Alina Castaneda MD PhD Active VERAPAMIL HCL CR 120 MG TAB CR 1 qPM VERAPAMIL HCL 80704166376 No Longer Active Salina ROJAS Active ZYPREXA 15 MG TABS Take 1 tablet by mouth daily OLANZAPINE 68321996390 No Longer Active Marvel MARROQUIN Active LISINOPRIL 20 MG TABS 1 BID LISINOPRIL 11798071198 Active Alina Castaneda MD PhD Active ALBUTEROL SULFATE (2.5 MG/3ML) 0.083% NEBU 1 neb tid and prn cough ALBUTEROL SULFATE 76881646450 No Longer Active Alina Castaneda MD PhD Active TRAVATAN Z 0.004 % SOLN 1 gtt each eye daily TRAVOPROST 33508503775 Active CRYSTAL Suarez Active LANTUS 100 UNIT/ML SOLN 60 units sq q hs INSULIN GLARGINE 46155208718 No Longer Active CRYSTAL Suarez Active ALBUTEROL SULFATE (2.5 MG/3ML) 0.083% NEBU 1 neb tid and prn cough ALBUTEROL SULFATE (2.5 MG/3ML) 0.083% NEBU 777123 ALBUTEROL SULFATE Inactive ZYPREXA 15 MG TABS Take 1 tablet by mouth daily ZYPREXA 15 MG TABS 688121 OLANZAPINE Inactive VERAPAMIL HCL CR 120 MG TAB CR 1 qPM VERAPAMIL HCL CR 120 MG TAB CR VERAPAMIL HCL Inactive ZYPREXA 10 MG TABS Take one by mouth daily ZYPREXA 10 MG TABS 291366 OLANZAPINE Inactive TOPROL XL 100 MG CF41F-DDB 1 @ HS TOPROL XL 100 MG WW37W-VCE METOPROLOL SUCCINATE Inactive LEVEMIR 100 UNIT/ML SOLN 90 units SQ qHS LEVEMIR 100 UNIT/ML SOLN INSULIN DETEMIR Inactive PROMETHAZINE-CODEINE 6.25-10 MG/5ML SYRP 1 tsp po q 6 hours prn cough PROMETHAZINE-CODEINE 6.25-10 MG/5ML SYRP 764466 PROMETHAZINE- CODEINE Inactive GUAIFENESIN 600 MG [id number] 1 tablet by mouth twice daily if needed for cough GUAIFENESIN 600 MG [id number]-PUQ GUAIFENESIN Inactive ALBUTEROL SULFATE 0.083 % NEBU SOLN one vial per nebulizer TID and PRN cough/ soa ALBUTEROL SULFATE 0.083 % NEBU SOLN 319574 ALBUTEROL SULFATE Inactive ZYPREXA 5 MG TABS take one tablet by mouth every evening ZYPREXA 5 MG TABS 284765 OLANZAPINE Inactive HYDROCODONE-ACETAMINOPHEN 5-325 MG TABS take one tablet by mouth every four hours as needed for pain HYDROCODONE-ACETAMINOPHEN 5-325 MG TABS 836237 HYDROCODONE-ACETAMINOPHEN Inactive BACTROBAN 2 % CREAM apply to ear and nose twice daily BACTROBAN 2 % CREAM 186847 MUPIROCIN CALCIUM Inactive CYCLOBENZAPRINE HCL 10 MG TABS 1/2 tablet by mouth every 8 hours as needed for muscle spasms CYCLOBENZAPRINE HCL 10 MG TABS 917700 CYCLOBENZAPRINE HCL Inactive NAVANE 10 MG CAPS 1/2 tablet twice a day NAVANE 10 MG CAPS THIOTHIXENE Inactive DOXEPIN HCL 10 MG CAPS Take 1 tablet by mouth daily DOXEPIN HCL 10 MG CAPS 8184127 DOXEPIN HCL Inactive HYDROCODONE-ACETAMINOPHEN 7.5-325 MG TABS 1 four times a day as needed for pain HYDROCODONE-ACETAMINOPHEN 7.5-325 MG TABS 463459 HYDROCODONE-ACETAMINOPHEN Inactive NIACIN CR 500 MG CR-TABS 2 qHS NIACIN CR 500 MG CR- TABS NIACIN Inactive ORPHENADRINE CITRATE ER 100 MG [id number] 1 every 12 hr. as needed ORPHENADRINE CITRATE ER 100 MG IF43Q-XGB ORPHENADRINE CITRATE Inactive ACETAMINOPHEN 500 MG TABS 2 Q 6 hr. PRN ACETAMINOPHEN 500 MG TABS 272524 ACETAMINOPHEN Inactive SAPHRIS 5 MG SUBL by mouth twice a day SAPHRIS 5 MG SUBL ASENAPINE MALEATE Inactive NIACIN ER 500 MG CR-TABS 4 qHS (for triglycerides) NIACIN ER 500 MG CR-TABS NIACIN Inactive IBUPROFEN 200 MG TABS 1 Q 6 hr. PRN IBUPROFEN 200 MG TABS 989698 IBUPROFEN Inactive FLUTICASONE PROPIONATE 50 MCG/ACT SUSP 2 sprays each nostril qDay x 30 days FLUTICASONE PROPIONATE 50 MCG/ACT SUSP 247327 FLUTICASONE PROPIONATE Inactive EQL TRUETEST TEST STRP Test blood sugar TID EQL TRUETEST TEST STRP GLUCOSE BLOOD Inactive TEREES CONTOUR TEST STRP monitor blood sugars 3x/day TERESE CONTOUR TEST STRP GLUCOSE BLOOD Inactive DETROL LA 4 MG [id number]-VWM Take 1 tablet by mouth daily DETROL LA 4 MG [id number]-RPK TOLTERODINE TARTRATE Inactive ZYPREXA 7.5 MG TABS 1 at HS ZYPREXA 7.5 MG TABS 833936 OLANZAPINE Inactive THIOTHIXENE 5 MG CAPS by mouth twice a day THIOTHIXENE 5 MG CAPS 355177 THIOTHIXENE Inactive UROXATRAL 10 MG QL95P-IMT Take 1 tablet by mouth daily UROXATRAL 10 MG NQ16T-QHV ALFUZOSIN HCL Inactive ACYCLOVIR 400 MG ORAL TABS 1 pill three times daily x 5 days, for cold sore outbreak ACYCLOVIR 400 MG ORAL TABS 004751 ACYCLOVIR Inactive TRUETEST TEST STRP check sugars 4x/day TRUETEST TEST STRP GLUCOSE BLOOD Inactive HUMALOG 100 UNIT/ML SOLN Take 20 units with breakfast, 10u with lunch and suppetr. HUMALOG 100 UNIT/ML SOLN INSULIN LISPRO ( HUMAN) Inactive CYCLOBENZAPRINE HCL 10 MG TABS 1 tablet by mouth three times daily, scheduled CYCLOBENZAPRINE HCL 10 MG TABS 610455 CYCLOBENZAPRINE HCL Inactive ACCU-CHEK ROSA INVITR STRP use strips with device to check blood sugars 3 times daily ACCU-CHEK ROSA INVITR STRP GLUCOSE BLOOD Inactive ACCU-CHEK ROSA UZMA Use device to check blood sugars ACCU-CHEK ROSA UZMA BLOOD GLUCOSE MONITORING SUPPL Inactive FLUVOXAMINE MALEATE 100 MG ORAL TABS Take 1/2 tab at noon FLUVOXAMINE MALEATE 100 MG ORAL TABS 925427 FLUVOXAMINE MALEATE Inactive FLUVOXAMINE MALEATE 100 MG TABS Take one (1) tablet by mouth am, 1/2 at noon FLUVOXAMINE MALEATE 100 MG TABS 050104 FLUVOXAMINE MALEATE Inactive BACTROBAN 2 % CREAM Apply to affected area BID for up to 10 days BACTROBAN 2 % CREAM 620549 MUPIROCIN CALCIUM Inactive NOVOFINE 32G X 6 MM MISC use one four times per day NOVOFINE 32G X 6 MM MISC INSULIN PEN NEEDLE Inactive TRAZODONE HCL 100 MG ORAL TABS 1 tab by mouth for sleep TRAZODONE HCL 100 MG ORAL TABS 103651 TRAZODONE HCL Inactive LOVAZA 1 GM CAPS 4 daily (for triglycerides) LOVAZA 1 GM CAPS 221936 WGYFF-[id number] ETHYL ESTERS Inactive METFORMIN HCL ER 500 MG VK67F-ECJ Take three tablets by mouth everyday METFORMIN HCL ER 500 MG [id number]-UKD METFORMIN HCL Inactive METOPROLOL SUCCINATE 100 MG MO84K-JDZ 1 by mouth daily for blood pressure METOPROLOL SUCCINATE 100 MG NL03H-GMW METOPROLOL SUCCINATE Inactive AMITIZA 24 MCG ORAL CAPS Take one capsule BID for constipation. AMITIZA 24 MCG ORAL CAPS LUBIPROSTONE Inactive TOLTERODINE TARTRATE 2 MG TABS 1 pill twice daily, for bladder TOLTERODINE TARTRATE 2 MG TABS 451836 TOLTERODINE TARTRATE Inactive COLACE 100 MG CAPS 1 pill by mouth twice daily, for constipation COLACE 100 MG CAPS 1934376 DOCUSATE SODIUM Inactive CEFDINIR 300 MG CAPS by mouth twice a day CEFDINIR 300 MG CAPS 798493 CEFDINIR Inactive AZITHROMYCIN 500 MG SOLR 1 po q day AZITHROMYCIN 500 MG SOLR 37911613859 AZITHROMYCIN Inactive AMOXICILLIN 500 MG CAPS 2 po BID x 10 days AMOXICILLIN 500 MG CAPS 413179 AMOXICILLIN Inactive PENICILLIN V POTASSIUM 500 MG TABS 1 pill by mouth three times daily PENICILLIN V POTASSIUM 500 MG TABS 220153 PENICILLIN V POTASSIUM Inactive KEFLEX 500 MG CAP 1 po BID x 7 days KEFLEX 500 MG CAP 799990 CEPHALEXIN Inactive Immunizations Vaccine Administration Date Value [...] Fluvirin, Fluarix, Agriflu(>=18 yo)) Fluzone (>3 yrs.) [SHX447] Influenza, seasonal, injectable pneumococcal immunization administered Pneumovax 23 [CVX33] pneumococcal polysaccharide vaccine, 23 valent Vital Signs Date Name Value Unit Range Description blood pressure, diastolic - 8462-4 77 mm[Hg] BP garcia blood pressure, systolic - 8480-6 125 mm[Hg] BP sys pulse rate E&M - 8867-4 58 /min Heart rate temperature E&M 96.7 [degF] Body temperature weight E&M - 3141-9 209.5 [lb_av] Weight Measured blood pressure, diastolic - 8462-4 85 mm[Hg] [...] E&M - 3141-9 233.3 [lb_av] Weight Measured Diagnostic Results Date Name Value Unit Range Description Lab Report: CBC W/DIFF, Basic Metabolic Panel - Chemistry sodium, serum 137 mmol/L 187-543 5886/10/12 potassium, serum 4.8 mmol/L 3.5-5.2 chloride, serum 102 mmol/L 98-107 carbon dioxide, venous blood 27.6 mmol/L 21.0-32.0 blood glucose 168 mg/dL 65-110 calcium, serum 9.0 mg/dL 8.5-10.1 urea nitrogen, blood 15 mg/dL 7-18 creatinine, serum 1.04 mg/dL 0.55-1.30 sodium, serum 138 mmol/L 301-487 4334/11/11 potassium, serum 4.7 mmol/L 3.5-5.2 chloride, serum 103 mmol/L 98-107 carbon dioxide, venous blood 23.3 mmol/L 21.0-32.0 blood glucose 170 mg/dL 65-110 calcium, serum 8.6 mg/dL 8.5-10.1 urea nitrogen, blood 17 mg/dL 7-18 creatinine, serum 1.51 mg/dL 0.55-1.30 Lab Report: CBC W/DIFF, Basic Metabolic Panel - Hematology leukocyte count, blood 5.8 10^3/MM^3 10*3/mm3 4.6-10.2 [...] % 11.6-14.8 platelet count 240 10^3/MM^3 10*3/mm3 679-922 9790/11/11 leukocyte count, blood 9.6 10^3/MM^3 10*3/mm3 4.6-10.2 [...] % 11.6-14.8 platelet count 252 10^3/MM^3 10*3/mm3 142-424 Lab Report: HGBA1C - Chemistry hemoglobin A1C, blood, as % of total hemoglobin 6.1 % 4.3-6.0 hemoglobin A1C, blood, as % of total hemoglobin 6.3 % 4.3-6.0 hemoglobin A1C, blood, as % of total hemoglobin 6.1 % 4.3-6.0 Lab Report: Lipid Panel, HEPATIC PANEL, Uric Acid - Chemistry cholesterol, serum 187 mg/dL 798-719 3667/06/14 triglyceride, serum, fasting 246 mg/dL 30-200 HDL cholesterol, serum 27 mg/dL 32-96 LDL cholesterol, serum 111 mg/dL 0-130 aspartate aminotransferase (SGOT), serum 25 U/L 15-37 alanine aminotransferase (SGPT), serum 48 U/L 12-78 bilirubin, serum, total 0.40 mg/dL 0.00-1.00 uric acid, serum 4.2 mg/dL 2.6-7.2 Lab Report: Lipid Panel, Prostatic Specific Ag, MICROALBUMIN, Uric Acid - Chemistry albumin/creatinine ratio, urine < 30 mg/g mg/g{creat} 0-29 uric acid, serum 4.7 mg/dL 2.6-7.2 cholesterol, serum 142 mg/dL 597-643 4589/06/26 triglyceride, serum, fasting 272 mg/dL 30-200 HDL cholesterol, serum 22 mg/dL 32-96 LDL cholesterol, serum 66 mg/dL 0-130 prostate specific antigen 0.37 ng/mL 0.00-4.00 Lab Report: Lipid Panel, Prostatic Specific Ag, MICROALBUMIN, Uric Acid - Lab microalbumin, urine 80 0-19 Lab Report: MICROALB/CREAT W/RATIO - Chemistry albumin/creatinine ratio, urine < 30 mg/g mg/g{creat} 0-29 Lab Report: MICROALB/CREAT W/RATIO - Lab microalbumin, urine 10 0-19 Lab Report: UADIP W/MICRO, AUTO - [...] 1 month follow up retention - Chemistry RBC, urine, dipstick non-hemolyzed trace protein, total urine random negative mg/dL Office Visit: 1 month follow up retention - Urinalysis urinalysis, routine Clean Catch ketones, urine, by test strip negative bilirubin, urine negative glucose, urine, semiquantitative negative pH, urine, semiquantitative 6.0 specific gravity, urine 1.015 urine color yellow appearance, urine clear leukocyte esterase, urine, by dipstick negative nitrite, urine, semiquantitative negative urobilinogen, urine, semiquantitative (dipstick) negative protein, urine, semiquantitative (dipstick) negative Office Visit: Difficulty urinating - Chemistry protein, [...] negative Encounters Code Encounter Date Provider Facility CPT-39191 Level 3 Est. Patient 16:27:51 CDT Mima Erazo [facility] CPT-85282 Level 3 Est. Patient 14:39:00 [employer]PER[employer] Vanessa Hickey MD [facility]-58522 Level 2 Est. Patient 18:43:34 CDT Mima Erazo [facility] CPT-86106 Level 3 Est. Patient 16:22:09 CDT Cherelle Avila [facility] CPT-63302 Level 4 Est. Patient 17:55:14 CDT Mima Erazo [facility] CPT-80315 Level 2 Est. Patient 17:13:21 CDT Alina Castaneda MD PhD [facility] CPT-27556 Level 3 Est. Patient 14:46:15 CDT Vanessa Hickey MD [facility]-38808 Level 3 Est. Patient 09:34:56 CDT Alina Castaneda MD PhD [facility]72818 Level 3 Est. Patient 21:40:19 CDT Mima Erazo [facility] CPT-13465 Level 3 Est. Patient 09:26:40 CDT Marvel Charles [facility]-28844 Level 3 Est. Patient 12:36:43 CDT Vanessa Hickey MD [facility]-83319 Level 3 Est. Patient 12:57:49 CDT Vanessa Hickey MD [facility]-36281 Level 3 Est. Patient 00:28:25 CDT Alina Castaneda MD [facility]22875 Level 2 Est. Patient 12:52:14 CDT Alina Castaneda MD [facility]00177 Level 3 Est. 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-21594 Level 3 Est. 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-84886 Level 3 Est. Patient 21:54:06 CDT Vanessa Hickey MD [facility]-60562 Level 3 Est. Patient 08:54:46 CDT Alina Castaneda MD [facility]59835 Level 3 Est. Patient 09:32:11 CDT Marvel Charles [facility]34167 Level 3 Est. Patient 12:02:49 CDT Alina Castaneda MD [facility]77882 Level 3 Est. Patient 19:17:33 CDT Alina Castaneda MD [facility]-40963 Level 3 Est. Patient 13:19:10 CDT Marvel [facility]-22997 Level 3 Est. Patient 08:20:05 CDT Alina Castaneda MD [facility]-31156 Level 3 Est. Patient 15:17:18 CDT Alina Castaneda MD [facility]-47415 Level 3 Est. Patient 14:25:36 [employer] [facility]-50164 Level 3 Est. Patient 10:09:15 [employer]ILL SUPER[employer] [facility] Est[facility] Patient 21:28:43 CDT Alina Castaneda MD [facility]-29820 Level 3 Est. Patient 15:20:11 CDT [facility]-71798 Level 4 Est. Patient 19:08:12 CDT Alina Castaneda MD [facility]-65550 Level 3 Est. Patient 15:06:39 CDT Marvel Ar[facility]-30689 Level 4 Est. Patient 17:48:15 CDT Alina Castaneda MD [facility]-69430 Level 3 Est. Patient 14:53:49 CDT Alina Castaneda MD [facility]-68689 Level 3 Est. Patient 09:35:16 CDT Alina Castaneda MD [facility]-12788 Level 3 Est. Patient 12:23:22 CDT Alina Castaneda MD [facility]-92332 Level 3 Est. Patient 16:19:15 CDT Alina Castaneda MD [facility]-12750 Level 3 Est. Patient 21:39:56 [employer]PER[employer] Alina Castaneda MD [facility]-75239 Level 4 Est. Patient 14:12:56 [employer]ILL SUPER[employer]OR Alina Castaneda MD [facility]-79628 Level 2 Est. Patient 15:34:57 [employer] SUPER[employer]OR Alina Castaneda MD [facility]-14578 Level 3 Est. Patient 12:17:04 [employer] SUPER[employer] Alina Castaneda MD [facility]-30311 Level 3 Est. Patient 09:18:18 [employer] MILL SUPER[employer] [facility]-86354 Level 2 Est. Patient 21:50:24 CDT Alina Castaneda MD [facility]-61070 Level 3 Est. Patient 09:17:28 CDT [facility]-41108 Level 4 Est. Patient 18:54:02 CDT Alina Castaneda MD [facility]-56928 Level 3 Est. Patient 10:47:10 CDT Alina Castaneda MD [facility]-43893 Level 3 Est. Patient 09:22:20 CDT [facility]-76240 Level 3 Est. Patient 16:39:43 CDT [facility]-14822 Level 3 Est. Patient 16:05:16 CDT Alina Castaneda MD [facility]-22211 Level 3 Est. Patient 00:29:15 CDT Alina Castaneda MD PhD [facility] CPT-94253 Level 3 Est. Patient 10:49:22 [employer] SUPER[employer] Marvel [facility] CPT-38236 Level 3 Est. Patient 21:30:19 [employer]PER[employer] Alina Castaneda MD PhD [facility] CPT-46074 Level 4 Est. Patient 17:04:11 [employer]ILL SUPER[employer] [place] [facility] CPT-02547 Level 3 Est. Patient 15:34:11 [employer]ILL SUPER[employer] [facility] CPT-14825 Level 2 Est. Patient 12:51:58 [employer]PER[employer] Alina Castaneda MD [facility] CPT-67522 Level 3 Est. Patient 13:20:01 [employer]PER[employer] Alina Castaneda MD PhD [facility] CPT-36662 Level 3 Est. Patient 09:23:35 CDT Alina Castaneda MD PhD [facility] Procedures Code Procedure Name Date Entry Date Standard Description CPT-07089 Bladder Scan 14:39:01 [employer] CPT-TCMM Transitional Care Mgmt-Moderate 10:30:19 [employer] CPT-49446 Bladder Scan 12:36:44 CDT CPT-33386 Bladder Scan 21:54:06 CDT CPT-G0008 Administration of Influenza Virus Vaccine 13:05:26 CDT CPT-90731 Fluzone Quadrivalent Intramuscular Suspension 0.5 ML 13: 05:26 CDT CPT-32915 Administration single or combination vaccine inc oral 11 :49:51 CDT CPT-13574 Pneumovax 11:49:51 CDT CPT-72113 Ribs unilateral 2V 12:37:22 [employer] CPT-60200 Chest 2V Frontal and Lat 17:15:26 CDT CPT-68982 Abx/Therapy Injection 18:54:02 CDT CPT-J0696 Rocephin 1000 mg (Ceftriaxone) 16:00:32 CDT CPT-91120 Chest 2V Frontal and Lat 15:26:45 CDT CPT-94326 Chest 2V Frontal and Lat 10:23:27 CDT CPT-38559 Venipuncture Draw Fee 10:11:00 CDT CPT-70340 Administration single or combination vaccine inc oral 11 :56:38 CDT CPT-92793 Influenza split virus > age 3 11:56:38 CDT CPT-71797 Venipuncture Draw Fee 08:49:54 [employer] CPT-11274 EKG Trac and Interp 17:54:19 [employer]
--- OUTSIDE RECORDS SUMMARY | 2018-07-02 13:25 | XMS REPORT | Clinical Summary ---
Author Author Admin, TERELL Organization [facility] Address Unknown Phone Unavailable Allergies, Adverse Reactions, Alerts Allergy Name Reaction Description Start Date Severity Status Provider PROZAC Critical Active CRYSTAL Suarez ABIKELYFGrge Critical Active CRYSTAL Suarez Conditions or Problems [...] PhD Unspecified glaucoma GOUT, UNSPECIFIED 274.9 Active Alnia Castaneda MD PhD Gout, unspecified FH STROKE 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 Erazo [employer]ATAL GENETIC COUNSELOR Benign paroxysmal positional vertigo Vertigo, benign paroxysmal position 386.11 Inactive Mima Erazo PRENATAL GENETIC COUNSELOR Benign paroxysmal positional vertigo High-risk sexual behavior V69.2 Active Alina Castaneda MD PhD High-risk sexual behavior Erectile dysfunction 302.72 Active Alina Castaneda MD PhD Psychosexual dysfunction with inhibited sexual excitement Constipation 564.00 Active Alina Castaneda MD PhD Constipation, unspecified Skin lesion 709.9 Active Alina Castaneda MD PhD Unspecified disorder of skin and subcutaneous tissue Malaise and fatigue 780.79 Active Cherelle Speaks PRENATAL GENETIC COUNSELOR Other malaise and fatigue Diarrhea 787.91 Active Cherelle Speaks PRENATAL GENETIC COUNSELOR Diarrhea PHARYNGITIS 462 Active Cherelle Speaks PRENATAL GENETIC COUNSELOR Acute pharyngitis Colitis 558.9 Active Mima Erazo PRENATAL GENETIC COUNSELOR Other and unspecified noninfectious gastroenteritis and colitis WOUND, OPEN, NOSE ICD-873.20 Inactive Alina Castaneda MD PhD DIABETES, TYPE 2 ICD-250.00 Inactive Alina Castaneda MD PhD HYPERTENSION ICD-401.9 Inactive Alina Castaneda MD PhD URI ICD-465.9 Inactive Alina Castaneda MD PhD CHEST PAIN ICD-786.50 Inactive Alina Castaneda MD PhD FH STROKE ICD-V17.1 Inactive Marvel Charles METAL EXPEDITER FATIGUE ICD-780.79 Inactive Alina Castaneda MD PhD [...] Generic Name NDC Status Provider Patient Instruction FLONASE ALLERGY RELIEF 50 MCG/ACT NASAL SUSP One spray each nostril BID x 1 week then daily FLUTICASONE PROPIONATE 00015206642 Active Mima Yokum PRENATAL GENETIC COUNSELOR Active BD PEN NEEDLE MINI U/F 31G X 5 MM MISC 4 a day INSULIN PEN NEEDLE 96027070845 Active Maliheh Ziglari METAL EXPEDITER Active AMITIZA 24 MCG ORAL CAPS Take one capsule BID for constipation LUBIPROSTONE 70868365239 Active Mima Yokum PRENATAL GENETIC COUNSELOR Active LEVEMIR FLEXTOUCH 100 UNIT/ML SC SOPN 75 units SQ each evening, for diabetes INSULIN DETEMIR 55859936711 Active Mima Yokum PRENATAL GENETIC COUNSELOR Active TRUEPLUS LANCETS 30G MISC 3 a day LANCETS 44032681504 Active Malihnivia Mackenzieglari METAL EXPEDITER Active TOLTERODINE TARTRATE 2 MG TABS 1 pill twice daily, for bladder TOLTERODINE TARTRATE 97396162252 No Longer Active Vanessa Hickey MD Active AMITIZA 24 MCG ORAL CAPS Take one capsule BID for constipation. LUBIPROSTONE 01775279142 No Longer Active Vanessa Hickey MD Active LOMOTIL 2.5-0.025 MG ORAL TABS take 1-2 tabs PO after each stool, no more than 8 in 24 hours DIPHENOXYLATE-ATROPINE 99917525610 Active Grace Azam RMA Active FLUVOXAMINE MALEATE 100 MG ORAL TABS take one tab every AM et HS, and take 1/ 2 tab at noon FLUVOXAMINE MALEATE 43225444504 Active Grace Azam RMA Active METOPROLOL SUCCINATE 100 MG LV67I-BSC 1 by mouth daily for blood pressure METOPROLOL SUCCINATE 96045797950 No Longer Active Grace Azam RMA Active METFORMIN HCL ER 500 MG RP55M-QCJ Take three tablets by mouth everyday METFORMIN HCL 22361580643 No Longer Active Grace Azam RMA Active LOVAZA 1 GM CAPS 4 daily (for triglycerides) OMEGA-3- ACID ETHYL ESTERS 63525383261 No Longer Active Grace Azam RMA Active TRAZODONE HCL 100 MG ORAL TABS 1 tab by mouth for sleep TRAZODONE HCL 15260694488 No Longer Active Grace Azam RMA Active NOVOFINE 32G X 6 MM MISC use one four times per day INSULIN PEN NEEDLE 04559649599 No Longer Active Grace Azam RMA Active BACTROBAN 2 % CREAM Apply to affected area BID for up to 10 days MUPIROCIN CALCIUM 45204616894 No Longer Active Grace Azam RMA Active ZOFRAN 4 MG TABS 1 po q4hr PRN Nausea ONDANSETRON HCL 03864408428 Active Salina Ervinford RMA Active KEFLEX 500 MG CAP 1 po BID x 7 days CEPHALEXIN 18569008143 No Longer Active Cherelle Avila PRENATAL GENETIC COUNSELOR Active FLUVOXAMINE MALEATE 100 MG TABS Take one (1) tablet by mouth am, 1/2 at noon FLUVOXAMINE MALEATE 69763745869 No Longer Active Mima Erazo PRENATAL GENETIC COUNSELOR Active CORICIDIN HBP CONGESTION/COUGH 10-200 MG ORAL CAPS Take as directed on box as needed for cold/flu symptoms DEXTROMETHORPHAN-GUAIFENESIN 78527592643 Active Cherelle Avila APRN Active OMEGA-3 300 MG ORAL CAPS 4 caps by mouth daily OMEGA-3 FATTY ACIDS 86395545525 Active Mima Erazo PRENATAL GENETIC COUNSELOR Active FLUVOXAMINE MALEATE 100 MG ORAL TABS Take 1/2 tab at noon FLUVOXAMINE MALEATE 96530624942 No Longer Active Cherelle Avila PRENATAL GENETIC COUNSELOR Active [facility] LUBRICANT EYE DROPS 0.4-0.3 % OPHTH SOLN POLYETHYL GLYCOL-PROPYL GLYCOL 79580136492 Active Mima Erazo PRENATAL GENETIC COUNSELOR Active CLONAZEPAM 1 MG TABS 1/2 pill by mouth three times daily CLONAZEPAM 03334009223 Active Mima Erazo PRENATAL GENETIC COUNSELOR Active MIRALAX POWD 17g by mouth daily, for constipation POLYETHYLENE GLYCOL 3350 96240437777 Active Alina Castaneda MD PhD Active HYDROCODONE-ACETAMINOPHEN 5-325 MG TABS 2 tabs by mouth three times daily for pain HYDROCODONE-ACETAMINOPHEN 46790658034 Active Mima Erazo PRENATAL GENETIC COUNSELOR Active HUMALOG KWIKPEN 100 UNIT/ML SC SOPN 20 units with breakfast, 10 units with lunch, 10 units with dinner, for diabetes INSULIN LISPRO (HUMAN ) 31918927618 Active Alina Castaneda MD PhD Active LATUDA 120 MG ORAL TABS 1 pill by mouth nightly LURASIDONE HCL 95290698874 Active Alina Castaneda MD PhD Active COLACE 100 MG CAPS 1 pill by mouth twice daily, for constipation DOCUSATE SODIUM 48804122599 Active Alina Castaneda MD PhD Active TRUETEST TEST STRP check blood sugars 3x/day GLUCOSE BLOOD 50198432540 Active Marvel MARROQUIN Active ACCU-CHEK ROSA UZMA Use device to check blood sugars BLOOD GLUCOSE MONITORING SUPPL 67948665927 No Longer Active Marvel MARROQUIN Active ACCU-CHEK ROSA INVITR STRP use strips with device to check blood sugars 3 times daily GLUCOSE BLOOD 66180035917 No Longer Active Marvel MARROQUIN Active VERAPAMIL HCL ER 180 MG ORAL CR-TABS 1 pill by mouth twice daily, for migraine prevention VERAPAMIL HCL 84374023643 Active Alina Castaneda MD PhD Active CYCLOBENZAPRINE HCL 10 MG TABS 1 tablet by mouth three times daily, scheduled CYCLOBENZAPRINE HCL 76297137492 No Longer Active Alina Castaneda MD PhD Active HUMALOG 100 UNIT/ML SOLN Take 20 units with breakfast, 10u with lunch and suppetr. INSULIN LISPRO (HUMAN) 33177338033 No Longer Active Alina Castaneda MD PhD Active TRUETEST TEST STRP check sugars 4x/day GLUCOSE BLOOD 29257223292 No Longer Active Alina Castaneda MD PhD Active MORPHINE SULFATE 30 MG TABS 1 pill by mouth twice daily, for pain MORPHINE SULFATE 79295535924 Active Mima Erazo PRENATAL GENETIC COUNSELOR Active ACYCLOVIR 400 MG ORAL TABS 1 pill three times daily x 5 days, for cold sore outbreak ACYCLOVIR 25736404889 No Longer Active Alina Castaneda MD PhD Active PENICILLIN V POTASSIUM 500 MG TABS 1 pill by mouth three times daily PENICILLIN V POTASSIUM 28903404226 No Longer Active Alina Castaneda MD PhD Active UROXATRAL 10 MG DO19E-SOK Take 1 tablet by mouth daily ALFUZOSIN HCL 44273426277 No Longer Active Alina Castaneda MD PhD Active THIOTHIXENE 5 MG CAPS by mouth twice a day THIOTHIXENE 94811395001 No Longer Active Alina Castaneda MD PhD Active ZYPREXA 7.5 MG TABS 1 at HS OLANZAPINE 17335580031 No Longer Active Alina Castaneda MD PhD Active BD INSULIN SYRINGE 28G X 1/2" 1 ML MISC 1 four times per day INSULIN SYRINGE-NEEDLE U-100 50994790449 Active Marvel MARROQUIN Active DETROL LA 4 MG [id number] Take 1 tablet by mouth daily TOLTERODINE TARTRATE 36441697929 No Longer Active Alina Castaneda MD PhD Active TERESE CONTOUR TEST STRP monitor blood sugars 3x/day GLUCOSE BLOOD 63743172387 No Longer Active Alina Castaneda MD PhD Active EQL TRUETEST TEST STRP Test blood sugar TID GLUCOSE BLOOD 91376767653 No Longer Active Alina Castaneda MD PhD Active FLUTICASONE PROPIONATE 50 MCG/ACT SUSP 2 sprays each nostril qDay x 30 days FLUTICASONE PROPIONATE 64658647214 No Longer Active Alina Castaneda MD PhD Active IBUPROFEN 200 MG TABS 1 Q 6 hr. PRN IBUPROFEN 46946855231 No Longer Active Alina Castaneda MD PhD Active NIACIN ER 500 MG CR-TABS 4 qHS (for triglycerides) NIACIN 49986138164 No Longer Active Alina Castaneda MD PhD Active ALFUZOSIN HCL ER 10 MG [id number]-RSS 1 tablet daily ALFUZOSIN HCL 92640875127 Active Vanessa Hickey MD Active SAPHRIS 5 MG SUBL by mouth twice a day ASENAPINE MALEATE 24576699678 No Longer Active Marvle MARROQUIN Active ACETAMINOPHEN 500 MG TABS 2 Q 6 hr. PRN ACETAMINOPHEN 58057773438 No Longer Active Marvel MARROQUIN Active ORPHENADRINE CITRATE ER 100 MG QU86X-HQZ 1 every 12 hr. as needed ORPHENADRINE CITRATE 80715457634 No Longer Active Alina Castaneda MD PhD Active NIACIN CR 500 MG CR-TABS 2 qHS NIACIN 99655509486 No Longer Active Alina Castaneda MD PhD Active AMOXICILLIN 500 MG CAPS 2 po BID x 10 days AMOXICILLIN 73277015912 No Longer Active Alina Castaneda MD PhD Active HYDROCODONE-ACETAMINOPHEN 7.5-325 MG TABS 1 four times a day as needed for pain HYDROCODONE-ACETAMINOPHEN 38862295368 No Longer Active Alina Castaneda MD PhD Active DOXEPIN HCL 10 MG CAPS Take 1 tablet by mouth daily DOXEPIN HCL 64207282378 No Longer Active Salina Han A Active NAVANE 10 MG CAPS 1/2 tablet twice a day THIOTHIXENE No Longer Active Salina Han A Active CYCLOBENZAPRINE HCL 10 MG TABS 1/2 tablet by mouth every 8 hours as needed for muscle spasms CYCLOBENZAPRINE HCL 81508333512 No Longer Active Alina Castaneda MD PhD Active BACTROBAN 2 % CREAM apply to ear and nose twice daily MUPIROCIN CALCIUM 29267521107 No Longer Active Alina Castaneda MD PhD Active HYDROCODONE-ACETAMINOPHEN 5-325 MG TABS take one tablet by mouth every four hours as needed for pain HYDROCODONE-ACETAMINOPHEN 06284795836 No Longer Active Alina Castaneda MD PhD Active ZOLPIDEM TARTRATE 10 MG TABS take at bedtime ZOLPIDEM TARTRATE 31175901138 Active Alina Castaneda MD PhD Active ZYPREXA 5 MG TABS take one tablet by mouth every evening OLANZAPINE 40958282333 No Longer Active Alina Castaneda MD PhD Active ALBUTEROL SULFATE 0.083 % NEBU SOLN one vial per nebulizer TID and PRN cough/ soa ALBUTEROL SULFATE 45176399857 No Longer Active Alina Castaneda MD PhD Active GUAIFENESIN 600 MG [id number] 1 tablet by mouth twice daily if needed for cough GUAIFENESIN 40061497986 No Longer Active Marvel MARROQUIN Active AZITHROMYCIN 500 MG SOLR 1 po q day AZITHROMYCIN 34434278791 No Longer Active Alina Castaneda MD PhD Active PROMETHAZINE-CODEINE 6.25-10 MG/5ML SYRP 1 tsp po q 6 hours prn cough PROMETHAZINE-CODEINE 97390813617 No Longer Active Alina Castaneda MD PhD Active CEFDINIR 300 MG CAPS by mouth twice a day CEFDINIR 08126859322 No Longer Active Alina Castaneda MD PhD Active METFORMIN HCL 500 MG TS48I-ZFM Take 3 tablets by mouth everyday METFORMIN HCL 72063813010 No Longer Active Alina Castaneda MD PhD Active LEVEMIR 100 UNIT/ML SOLN 90 units SQ qHS INSULIN DETEMIR 69197739222 No Longer Active Marvel MARROQUIN Active TOPROL XL 100 MG LC61F-QMO 1 @ HS METOPROLOL SUCCINATE 60334122388 No Longer Active Marvel MARROQUIN Active ALLOPURINOL 300 MG TABS Take one by mouth daily ALLOPURINOL 85113107139 Active Mima Aguilarliudmila PRENATAL GENETIC COUNSELOR Active ZYPREXA 10 MG TABS Take one by mouth daily OLANZAPINE 77380092916 No Longer Active Alina Castaneda MD PhD Active NOVOLOG 100 UNIT/ML SOLN 40 units with every meal INSULIN ASPART 68373491116 No Longer Active Alina Castaneda MD PhD Active VERAPAMIL HCL CR 120 MG TAB CR 1 qPM VERAPAMIL HCL 16647691242 No Longer Active Salina Emely ROJAS Active ZYPREXA 15 MG TABS Take 1 tablet by mouth daily OLANZAPINE 70054049387 No Longer Active Marvel MARROQUIN Active LISINOPRIL 20 MG TABS 1 BID LISINOPRIL 62847963703 Active Alina Castaneda MD PhD Active ALBUTEROL SULFATE (2.5 MG/3ML) 0.083% NEBU 1 neb tid and prn cough ALBUTEROL SULFATE 65958165236 No Longer Active Alina Castaneda MD PhD Active TRAVATAN Z 0.004 % SOLN 1 gtt each eye daily TRAVOPROST 60226579582 Active CRYSTAL Suarez Active LANTUS 100 UNIT/ML SOLN 60 units sq q hs INSULIN GLARGINE 30974447668 No Longer Active CRYSTAL Suarez Active ALBUTEROL SULFATE (2.5 MG/3ML) 0.083% NEBU 1 neb tid and prn cough ALBUTEROL SULFATE (2.5 MG/3ML) 0.083% NEBU 933782 ALBUTEROL SULFATE Inactive ZYPREXA 15 MG TABS Take 1 tablet by mouth daily ZYPREXA 15 MG TABS 719873 OLANZAPINE Inactive VERAPAMIL HCL CR 120 MG TAB CR 1 qPM VERAPAMIL HCL CR 120 MG TAB CR VERAPAMIL HCL Inactive ZYPREXA 10 MG TABS Take one by mouth daily ZYPREXA 10 MG TABS 419761 OLANZAPINE Inactive TOPROL XL 100 MG [id number] 1 @ HS TOPROL XL 100 MG GB37J-WHW METOPROLOL SUCCINATE Inactive LEVEMIR 100 UNIT/ML SOLN 90 units SQ qHS LEVEMIR 100 UNIT/ML SOLN INSULIN DETEMIR Inactive PROMETHAZINE-CODEINE 6.25-10 MG/5ML SYRP 1 tsp po q 6 hours prn cough PROMETHAZINE-CODEINE 6.25-10 MG/5ML SYRP 929036 PROMETHAZINE- CODEINE Inactive GUAIFENESIN 600 MG DK75O-NIR 1 tablet by mouth twice daily if needed for cough GUAIFENESIN 600 MG LV31O-GSG GUAIFENESIN Inactive ALBUTEROL SULFATE 0.083 % NEBU SOLN one vial per nebulizer TID and PRN cough/ soa ALBUTEROL SULFATE 0.083 % NEBU SOLN 736520 ALBUTEROL SULFATE Inactive ZYPREXA 5 MG TABS take one tablet by mouth every evening ZYPREXA 5 MG TABS 121720 OLANZAPINE Inactive HYDROCODONE-ACETAMINOPHEN 5-325 MG TABS take one tablet by mouth every four hours as needed for pain HYDROCODONE-ACETAMINOPHEN 5-325 MG TABS 503046 HYDROCODONE-ACETAMINOPHEN Inactive BACTROBAN 2 % CREAM apply to ear and nose twice daily BACTROBAN 2 % CREAM 102816 MUPIROCIN CALCIUM Inactive CYCLOBENZAPRINE HCL 10 MG TABS 1/2 tablet by mouth every 8 hours as needed for muscle spasms CYCLOBENZAPRINE HCL 10 MG TABS 303559 CYCLOBENZAPRINE HCL Inactive NAVANE 10 MG CAPS 1/2 tablet twice a day NAVANE 10 MG CAPS THIOTHIXENE Inactive DOXEPIN HCL 10 MG CAPS Take 1 tablet by mouth daily DOXEPIN HCL 10 MG CAPS 5396312 DOXEPIN HCL Inactive HYDROCODONE-ACETAMINOPHEN 7.5-325 MG TABS 1 four times a day as needed for pain HYDROCODONE-ACETAMINOPHEN 7.5-325 MG TABS 378468 HYDROCODONE-ACETAMINOPHEN Inactive NIACIN CR 500 MG CR-TABS 2 qHS NIACIN CR 500 MG CR- TABS NIACIN Inactive ORPHENADRINE CITRATE ER 100 MG DQ99V-WZV 1 every 12 hr. as needed ORPHENADRINE CITRATE ER 100 MG [id number]-HLO ORPHENADRINE CITRATE Inactive ACETAMINOPHEN 500 MG TABS 2 Q 6 hr. PRN ACETAMINOPHEN 500 MG TABS 392107 ACETAMINOPHEN Inactive SAPHRIS 5 MG SUBL by mouth twice a day SAPHRIS 5 MG SUBL ASENAPINE MALEATE Inactive NIACIN ER 500 MG CR-TABS 4 qHS (for triglycerides) NIACIN ER 500 MG CR-TABS NIACIN Inactive IBUPROFEN 200 MG TABS 1 Q 6 hr. PRN IBUPROFEN 200 MG TABS 643841 IBUPROFEN Inactive FLUTICASONE PROPIONATE 50 MCG/ACT SUSP 2 sprays each nostril qDay x 30 days FLUTICASONE PROPIONATE 50 MCG/ACT SUSP 702531 FLUTICASONE PROPIONATE Inactive EQL TRUETEST TEST STRP Test blood sugar TID EQL TRUETEST TEST STRP GLUCOSE BLOOD Inactive TERESE CONTOUR TEST STRP monitor blood sugars 3x/day TERESE CONTOUR TEST STRP GLUCOSE BLOOD Inactive DETROL LA 4 MG IQ36B-PGX Take 1 tablet by mouth daily DETROL LA 4 MG [id number] TOLTERODINE TARTRATE Inactive ZYPREXA 7.5 MG TABS 1 at HS ZYPREXA 7.5 MG TABS 147991 OLANZAPINE Inactive THIOTHIXENE 5 MG CAPS by mouth twice a day THIOTHIXENE 5 MG CAPS 157206 THIOTHIXENE Inactive UROXATRAL 10 MG CC93U-AKS Take 1 tablet by mouth daily UROXATRAL 10 MG NW53C-GWP ALFUZOSIN HCL Inactive ACYCLOVIR 400 MG ORAL TABS 1 pill three times daily x 5 days, for cold sore outbreak ACYCLOVIR 400 MG ORAL TABS 121252 ACYCLOVIR Inactive TRUETEST TEST STRP check sugars 4x/day TRUETEST TEST STRP GLUCOSE BLOOD Inactive HUMALOG 100 UNIT/ML SOLN Take 20 units with breakfast, 10u with lunch and suppetr. HUMALOG 100 UNIT/ML SOLN INSULIN LISPRO ( HUMAN) Inactive CYCLOBENZAPRINE HCL 10 MG TABS 1 tablet by mouth three times daily, scheduled CYCLOBENZAPRINE HCL 10 MG TABS 423946 CYCLOBENZAPRINE HCL Inactive ACCU-CHEK ROSA INVITR STRP use strips with device to check blood sugars 3 times daily ACCU-CHEK ROSA INVITR STRP GLUCOSE BLOOD Inactive ACCU-CHEK ROSA UZMA Use device to check blood sugars ACCU-CHEK ROSA UZMA BLOOD GLUCOSE MONITORING SUPPL Inactive FLUVOXAMINE MALEATE 100 MG ORAL TABS Take 1/2 tab at noon FLUVOXAMINE MALEATE 100 MG ORAL TABS 481846 FLUVOXAMINE MALEATE Inactive FLUVOXAMINE MALEATE 100 MG TABS Take one (1) tablet by mouth am, 1/2 at noon FLUVOXAMINE MALEATE 100 MG TABS 846441 FLUVOXAMINE MALEATE Inactive BACTROBAN 2 % CREAM Apply to affected area BID for up to 10 days BACTROBAN 2 % CREAM 684226 MUPIROCIN CALCIUM Inactive NOVOFINE 32G X 6 MM MISC use one four times per day NOVOFINE 32G X 6 MM MISC INSULIN PEN NEEDLE Inactive TRAZODONE HCL 100 MG ORAL TABS 1 tab by mouth for sleep TRAZODONE HCL 100 MG ORAL TABS 035727 TRAZODONE HCL Inactive LOVAZA 1 GM CAPS 4 daily (for triglycerides) LOVAZA 1 GM CAPS 131763 LBJXK-3-VTAT ETHYL ESTERS Inactive METFORMIN HCL ER 500 MG QA14X-ENL Take three tablets by mouth everyday METFORMIN HCL ER 500 MG AF79V-SKU METFORMIN HCL Inactive METOPROLOL SUCCINATE 100 MG FE75C-WVR 1 by mouth daily for blood pressure METOPROLOL SUCCINATE 100 MG IM01W-CCQ METOPROLOL SUCCINATE Inactive AMITIZA 24 MCG ORAL CAPS Take one capsule BID for constipation. AMITIZA 24 MCG ORAL CAPS LUBIPROSTONE Inactive TOLTERODINE TARTRATE 2 MG TABS 1 pill twice daily, for bladder TOLTERODINE TARTRATE 2 MG TABS 438609 TOLTERODINE TARTRATE Inactive CEFDINIR 300 MG CAPS by mouth twice a day CEFDINIR 300 MG CAPS 885265 CEFDINIR Inactive AZITHROMYCIN 500 MG SOLR 1 po q day AZITHROMYCIN 500 MG SOLR 58385927864 AZITHROMYCIN Inactive AMOXICILLIN 500 MG CAPS 2 po BID x 10 days AMOXICILLIN 500 MG CAPS 131892 AMOXICILLIN Inactive PENICILLIN V POTASSIUM 500 MG TABS 1 pill by mouth three times daily PENICILLIN V POTASSIUM 500 MG TABS 969513 PENICILLIN V POTASSIUM Inactive KEFLEX 500 MG CAP 1 po BID x 7 days KEFLEX 500 MG CAP 651246 CEPHALEXIN Inactive Immunizations Vaccine Administration Date Value [...] Fluvirin, Fluarix, Agriflu(>=18 yo)) Fluzone (>3 yrs.) [[id number]] Influenza, seasonal, injectable pneumococcal immunization administered Pneumovax [...] E&M - 3141-9 240 [lb_av] Weight Measured Diagnostic Results Date Name Value Unit Range Description Lab Report: CBC W/DIFF, Basic Metabolic Panel - Chemistry sodium, serum 137 mmol/L 175-080 6062/10/12 potassium, serum 4.8 mmol/L 3.5-5.2 chloride, serum 102 mmol/L 98-107 carbon dioxide, venous blood 27.6 mmol/L 21.0-32.0 blood glucose 168 mg/dL 65-110 calcium, serum 9.0 mg/dL 8.5-10.1 urea nitrogen, blood 15 mg/dL 7-18 creatinine, serum 1.04 mg/dL 0.55-1.30 sodium, serum 138 mmol/L 888-882 5511/11/11 potassium, serum 4.7 mmol/L 3.5-5.2 chloride, serum [...] % 11.6-14.8 platelet count 252 10^3/MM^3 10*3/mm3 076-435 8911/10/12 leukocyte count, blood 5.8 10^3/MM^3 10*3/mm3 4.6-10.2 [...] 240 10^3/MM^3 10*3/mm3 142-424 Lab Report: Chlamydia/GC APTIMA/47612, HIV-1/2 Agn/Dominga/64128, RPR (DX) W ... - Chemistry hepatitis B surface antigen NON-REACTIVE NON-REACTIVE Lab Report: Chlamydia/GC APTIMA/75354, HIV-1/2 Agn/Dominga/11710, RPR (DX) W ... - Lab chlamydia DNA probe NOT DETECTED NOT DETECTED Lab Report: Chlamydia/GC APTIMA/53763, HIV-1/2 Agn/Dominga/17091, RPR (DX) W ... - Microbiology Neisseria gonorrhoeae DNA probe NOT DETECTED NOT DETECTED Lab Report: Chlamydia/GC APTIMA/32852, HIV-1/2 Agn/Dominga/90201, RPR (DX) W ... - Serology rapid [...] CBC - Chemistry cholesterol, serum 131 mg/dL 981-841 9472/06/03 triglyceride, serum, fasting 383 mg/dL 30-200 HDL [...] 4.7 mg/dL 2.6-7.2 cholesterol, serum 142 mg/dL 185-091 5285/06/26 triglyceride, serum, fasting 272 mg/dL 30-200 HDL [...] negative urinalysis, routine Clean Catch Office Visit: Difficulty urinating - Chemistry protein, [...] negative Encounters Code Encounter Date Provider Facility [facility]-41021 Level 3 Est. Patient 14:39:00 RN OR LVN Vanessa Hickey MD [facility]04756 Level 2 Est. Patient 18:43:34 CDT Mima Erazo [facility]-00226 Level 3 Est. Patient 16:22:09 CDT Cherelle Speakluciana [facility]-04248 Level 4 Est. Patient 17:55:14 CDT Mima Erazo [facility] CPT-15447 Level 2 Est. Patient 17:13:21 CDT Alina Castaneda MD [facility]07197 Level 3 Est. Patient 14:46:15 CDT Vanessa Hickey MD [facility]24079 Level 3 Est. Patient 09:34:56 CDT Alina Castaneda MD [facility]97256 Level 3 Est. Patient 21:40:19 CDT Mima Erazo [facility]-54785 Level 3 Est. Patient 09:26:40 CDT Marvel Charles [facility]53012 Level 3 Est. Patient 12:36:43 CDT Vanessa Hickey MD [facility]75296 Level 3 Est. Patient 12:57:49 CDT Vanessa Hickey MD [facility] CPT-83757 Level 3 Est. Patient 00:28:25 CDT Alina Castaneda MD [facility]-75979 Level 2 Est. Patient 12:52:14 CDT Alina Castaneda MD [facility]-55252 Level 3 Est. Patient 11:51:18 RN OR LVN Alina Castaneda MD [facility]-13380 Level 3 Est. Patient 10:09:22 RN OR LVN Alina Castaneda MD [facility]19087 Level 3 Est. Patient 14:36:26 [facility]72433 Level 3 Est. Patient 13:34:47 RN OR LVN Alina Castaneda MD [facility]18345 Level 3 Est. Patient 19:52:08 RN OR LVN Alina Castaneda MD [facility]35617 Level 3 Est. Patient 10:01:[address] [facility] [place] Charles [facility]-27933 Level 3 Est. Patient 21:54:06 CDT Vanessa Hiceky MD [facility]47767 Level 3 Est. Patient 08:54:46 CDT Alina Castaneda MD [facility]-86272 Level 3 Est. Patient 09:32:11 CDT Marvel Charles [facility]-06335 Level 3 Est. Patient 12:02:49 CDT Alina Castaneda MD [facility]22612 Level 3 Est. Patient 19:17:33 CDT Alina Castaneda MD [facility]00764 Level 3 Est. Patient 13:19:10 CDT Marvel Chalres [facility]-91451 Level 3 Est. Patient 08:20:05 CDT Alina Castaneda MD [facility]-89098 Level 3 Est. Patient 15:17:18 CDT Alina Castaneda MD [facility]-22560 Level 3 Est. Patient 14:25:36 RN OR LVN Marvel Charles [facility]-40593 Level 3 Est. Patient 10:09:15 RN OR LVN Marvel Charles [facility]-66877 Level 3 Est. Patient 21:28:43 CDT Alina Castaneda MD [facility]-18202 Level 3 Est. Patient 15:20:[address] [facility] Level 4 Est. Patient 19:08:12 CDT Alina Castaneda MD [facility]-86971 Level 3 Est. Patient 15:06:[address] [facility]47896 Level 4 Est. Patient 17:48:15 CDT Alina Castaneda MD [facility]-40614 Level 3 Est. Patient 14:53:49 CDT Alina Castaneda MD [facility]-27816 Level 3 Est. Patient 09:35:16 CDT Alina Castaneda MD [facility]-40482 Level 3 Est. Patient 12:23:22 CDT Alina Castaneda MD [facility]-96366 Level 3 Est. Patient 16:19:15 CDT Alina Castaneda MD [facility]-72158 Level 3 Est. Patient 21:39:56 RN OR LVN Alina Castaneda MD [facility]70115 Level 4 Est. Patient 14:12:56 RN OR LVN Alina Castaneda MD [facility]-95327 Level 2 Est. Patient 15:34:57 RN OR LVN Alina Castaneda MD [facility]-89932 Level 3 Est. Patient 12:17:04 RN OR LVN lAina Castaneda MD [facility] [place]-49633 Level 3 Est. Patient 09:18:18 RN OR LVN [facility] CPT-53916 Level 2 Est. Patient 21:50:24 CDT Alina Castaneda MD [facility]-30755 Level 3 Est. Patient 09:17:28 CDT [facility]-60569 Level 4 Est. Patient 18:54:02 CDT Alina Castaneda MD [facility]-38669 Level 3 Est. Patient 10:47:10 CDT Alina Castaneda MD [facility]-84801 Level 3 Est. Patient 09:22:20 CDT [facility] CPT-53760 Level 3 Est. Patient 16:39:43 CDT [facility] CPT-27367 Level 3 Est. Patient 16:05:16 CDT Alina Castaneda MD [facility]-82071 Level 3 Est. Patient 00:29:15 CDT Alina Castaneda MD [facility] [place]-40516 Level 3 Est. Patient 10:49:22 RN OR LVN [facility]-29667 Level 3 Est. Patient 21:30:19 RN OR LVN Alina Castaneda MD [facility]-46359 Level 4 Est. Patient 17:04:11 RN OR LVN [facility] CPT-00805 Level 3 Est. Patient 15:34:11 RN OR LVN [facility] CPT-76470 Level 2 Est. Patient 12:51:58 RN OR LVN Alina Castaneda MD PhD [facility] CPT-59068 Level 3 Est. Patient 13:20:01 RN OR LVN Alina Castaneda MD PhD [facility] CPT-67114 Level 3 Est. Patient 09:23:35 CDT Alina Castaneda MD PhD [facility] Procedures Code Procedure Name Date Entry Date Standard Description CPT-97405 Bladder Scan 14:39:01 RN OR LVN CPT-TCMM Transitional Care Mgmt-Moderate 10:30:19 RN OR LVN CPT-46981 Bladder Scan 12:36:44 CDT CPT-06967 Bladder Scan 21:54:06 CDT CPT-G0008 Administration of Influenza Virus Vaccine 13:05:26 CDT CPT-59536 Fluzone Quadrivalent Intramuscular Suspension 0.5 ML 13: 05:26 CDT CPT-07502 Administration single or combination vaccine inc oral 11 :49:51 CDT CPT-42860 Pneumovax 11:49:51 CDT CPT-25253 Ribs unilateral 2V 12:37:22 RN OR LVN CPT-50985 Chest 2V Frontal and Lat 17:15:26 CDT CPT-64582 Abx/Therapy Injection 18:54:02 CDT CPT-J0696 Rocephin 1000 mg (Ceftriaxone) 16:00:32 CDT CPT-19985 Chest 2V Frontal and Lat 15:26:45 CDT CPT-64931 Chest 2V Frontal and Lat 10:23:27 CDT CPT-58939 Venipuncture Draw Fee 10:11:00 CDT CPT-53168 Administration single or combination vaccine inc oral 11 :56:38 CDT CPT-70330 Influenza split virus > age 3 11:56:38 CDT CPT-35991 Venipuncture Draw Fee 08:49:54 RN OR LVN CPT-18413 EKG Trac and Interp 17:54:19 RN OR LVN
--- OUTSIDE RECORDS SUMMARY | 2018-07-02 13:27 | XMS REPORT | Clinical Summary ---
Author Author Admin, TERELL Organization [facility] [employer] Address Unknown Phone Unavailable Allergies, Adverse Reactions, 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 Erazo ELECTRICAL MECHANIC Benign paroxysmal positional vertigo Vertigo, benign paroxysmal position 386.11 Inactive Mima Erazo ELECTRICAL MECHANIC Benign paroxysmal positional vertigo High-risk sexual behavior V69.2 Active Alina Castaneda MD PhD High-risk sexual behavior Erectile dysfunction 302.72 Active Alina Castaneda MD PhD Psychosexual dysfunction with inhibited sexual excitement Constipation 564.00 Active Alina Castaneda MD PhD Constipation, unspecified Skin lesion 709.9 Active Alina Castaneda MD PhD Unspecified disorder of skin and subcutaneous tissue Malaise and fatigue 780.79 Active Cherelle Speaks ELECTRICAL MECHANIC Other malaise and fatigue Diarrhea 787.91 Active Cherelle Speaks ELECTRICAL MECHANIC Diarrhea PHARYNGITIS 462 Active Cherelle Speaks ELECTRICAL MECHANIC Acute pharyngitis Colitis 558.9 Active Mima Erazo ELECTRICAL MECHANIC Other and unspecified noninfectious gastroenteritis and colitis Chronic pain - on daily narcotics 338.29 Active Mason Loredo MD Other chronic pain WOUND, OPEN, NOSE ICD-873.20 Inactive Alina Castaneda [...] MD PhD RIB PAIN, RIGHT SIDED ICD-786.50 Roro Castaneda MD PhD SKIN LESION ICD-709.9 Roro Castaneda MD PhD SINUSITIS, ACUTE ICD-461.9 Roro Castaneda MD PhD DIABETIC HYPOGLYCEMIA, TYPE II ICD-250.80 Inactive Marvel 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 Roro Castaneda MD PhD Diabetes mellitus, type II, [...] Generic Name NDC Status Provider Patient Instruction VITAMIN D 2000 UNIT ORAL CAPS Take one by mouth daily CHOLECALCIFEROL 85090090807 Active Mima Yokum ELECTRICAL MECHANIC Active LATUDA 60 MG ORAL TABS Take one by mouth daily LURASIDONE HCL 54808549579 No Longer Active Mima Yokum ELECTRICAL MECHANIC Active HUMALOG KWIKPEN 100 UNIT/ML SC SOPN sliding scale if needed INSULIN LISPRO (HUMAN) 49585244070 Active Mima Yokum ELECTRICAL MECHANIC Active MORPHINE SULFATE 30 MG ORAL TABS by mouth twice a day MORPHINE SULFATE 59954632808 Active Salina Han [facility] Active TRAZODONE HCL 100 MG TABS 1 every night to prevent headaches TRAZODONE HCL 30675948354 Active Gabrielle Madl CERTIFIED PHLEBOTOMIST Active LATUDA 60 MG ORAL TABS 1 tab daily LURASIDONE HCL 16079334773 Active Gabrielle Madl CERTIFIED PHLEBOTOMIST Active CLONAZEPAM 1 MG TABS 1 pill by mouth three times daily CLONAZEPAM 96028232889 Active Gabrielle Madl CERTIFIED PHLEBOTOMIST Active [facility] MILK OF MAGNESIA 400 MG/5ML ORAL SUSP 30ml by mouth bid prn MAGNESIUM HYDROXIDE 23671901722 Active Mason Loredo MD Active TYLENOL 8 HOUR 650 MG ORAL CR-TABS 1 tab QID prn ACETAMINOPHEN 88377745575 Active Mason Loredo MD Active MYLANTA GAS RELIEF MAXIMUM STR 125 MG ORAL CAPS 30cc every 4 hours prn 12/01 SIMETHICONE 80014104498 Active Mason Loredo MD Active IMODIUM A-D 2 MG ORAL TABS 1 tab QID as needed LOPERAMIDE HCL 58441116047 Active Mason Loredo MD Active FLUVOXAMINE MALEATE 50 MG ORAL TABS 1 tab by mouth daily FLUVOXAMINE MALEATE 01208462505 Active Mason Loredo MD Active TRAVATAN Z 0.004 % SOLN 1 gtt each eye daily TRAVOPROST 71990363736 No Longer Active Mason Loredo MD Active LISINOPRIL 20 MG TABS 1 BID LISINOPRIL 31618145067 No Longer Active Mason Loredo MD Active LEVEMIR FLEXTOUCH 100 UNIT/ML SC SOPN 60 units SQ each evening, for diabetes INSULIN DETEMIR 51510367024 Active Desi Nicholson Active ZOLPIDEM TARTRATE 10 MG TABS take at bedtime ZOLPIDEM TARTRATE 55051343171 No Longer Active Mason Loredo MD Active HYDROCODONE-ACETAMINOPHEN 5-325 MG TABS 2 tabs by mouth three times daily for pain HYDROCODONE-ACETAMINOPHEN 75232227178 No Longer Active Mason Loredo MD Active ZOFRAN 4 MG TABS 1 po q4hr PRN Nausea ONDANSETRON HCL 53716448304 No Longer Active Mason Loredo MD Active LOMOTIL 2.5-0.025 MG ORAL TABS take 1-2 tabs PO after each stool, no more than 8 in 24 hours DIPHENOXYLATE-ATROPINE 58439799696 No Longer Active Mason Loredo MD Active COLACE 100 MG CAPS 1 pill by mouth twice daily, for constipation DOCUSATE SODIUM 50348560339 No Longer Active Mima Kacey [place] Active FLONASE ALLERGY RELIEF 50 MCG/ACT NASAL SUSP One spray each nostril BID x 1 week then daily FLUTICASONE PROPIONATE 19066966282 Active Mima Erazo APRN Active BD PEN NEEDLE MINI U/F 31G X 5 MM MISC 4 a day INSULIN PEN NEEDLE 00682999744 Active Marvel Bertrandari PHLEBOTOMY LAB ASSISTANT Active AMITIZA 24 MCG ORAL CAPS Take one capsule BID for constipation LUBIPROSTONE 70085598354 Active Mima Erazo ELECTRICAL MECHANIC Active TRUEPLUS LANCETS 30G MISC 3 a day LANCETS 22062884655 Active Marvel 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 PHLEBOTOMY LAB ASSISTANT Active TOLTERODINE TARTRATE 2 MG TABS 1 pill twice daily, for bladder TOLTERODINE TARTRATE 87500089654 No Longer Active Vanessa Hickey MD Active AMITIZA 24 MCG ORAL CAPS Take one capsule BID for constipation. LUBIPROSTONE 89183574498 No Longer Active Vanessa Hickey MD Active FLUVOXAMINE MALEATE 100 MG ORAL TABS take one tab every AM et HS, and take 1/ 2 tab at noon FLUVOXAMINE MALEATE 58453218813 Active Grace Azam RMA Active METOPROLOL SUCCINATE 100 MG [id number] 1 by mouth daily for blood pressure METOPROLOL SUCCINATE 45516335499 No Longer Active Grace Azam RMA Active METFORMIN HCL ER 500 MG [id number] Take three tablets by mouth everyday METFORMIN HCL 00085730120 No Longer Active Grace Azam RMA Active LOVAZA 1 GM CAPS 4 daily (for triglycerides) OMEGA-3- ACID ETHYL ESTERS 29218894931 No Longer Active Grace Azam RMA Active TRAZODONE HCL 100 MG ORAL TABS 1 tab by mouth for sleep TRAZODONE HCL 52211448308 No Longer Active Grace Azam RMA Active NOVOFINE 32G X 6 MM MISC use one four times per day INSULIN PEN NEEDLE 86822490787 No Longer Active Grace Azam RMA Active BACTROBAN 2 % CREAM Apply to affected area BID for up to 10 days MUPIROCIN CALCIUM 05296651487 No Longer Active Grace Nelsonb RMA Active KEFLEX 500 MG CAP 1 po BID x 7 days CEPHALEXIN 03908475801 No Longer Active Cherelle Speaks ELECTRICAL MECHANIC Active FLUVOXAMINE MALEATE 100 MG TABS Take one (1) tablet by mouth am, 1/2 at noon FLUVOXAMINE MALEATE 09086723952 No Longer Active Mima Erazo ELECTRICAL MECHANIC Active CORICIDIN HBP CONGESTION/COUGH 10-200 MG ORAL CAPS Take as directed on box as needed for cold/flu symptoms DEXTROMETHORPHAN-GUAIFENESIN 63560205081 Active Cherelle Speaks ELECTRICAL MECHANIC Active OMEGA-3 300 MG ORAL CAPS 4 caps by mouth daily OMEGA-3 FATTY ACIDS 57319229345 Active Mima Erazo ELECTRICAL MECHANIC Active FLUVOXAMINE MALEATE 100 MG ORAL TABS Take 1/2 tab at noon FLUVOXAMINE MALEATE 70964531614 No Longer Active Cherelle Austin ELECTRICAL MECHANIC Active [facility] LUBRICANT EYE DROPS 0.4-0.3 % OPHTH SOLN POLYETHYL GLYCOL-PROPYL GLYCOL 76871757514 Active Mima Erazo ELECTRICAL MECHANIC Active MIRALAX POWD 17g by mouth daily, for constipation POLYETHYLENE GLYCOL 3350 90047038440 Active Alina Castaneda MD PhD Active TRUETEST TEST STRP check blood sugars 3x/day GLUCOSE BLOOD 02836353021 Active Maliheh Ziglari PHLEBOTOMY LAB ASSISTANT Active ACCU-CHEK ROSA UZMA Use device to check blood sugars BLOOD GLUCOSE MONITORING SUPPL 94376289468 No Longer Active Maliheh Ziglari PHLEBOTOMY LAB ASSISTANT Active ACCU-CHEK ROSA INVITR STRP use strips with device to check blood sugars 3 times daily GLUCOSE BLOOD 64349195636 No Longer Active Maliheh Ziglari PHLEBOTOMY LAB ASSISTANT Active VERAPAMIL HCL ER 180 MG ORAL CR-TABS 1 pill by mouth twice daily, for migraine prevention VERAPAMIL HCL 72490105576 Active CRYSTAL Rodrigues Active CYCLOBENZAPRINE HCL 10 MG TABS 1 tablet by mouth three times daily, scheduled CYCLOBENZAPRINE HCL 09485279063 No Longer Active Alina Castaneda MD PhD Active HUMALOG 100 UNIT/ML SOLN Take 20 units with breakfast, 10u with lunch and suppetr. INSULIN LISPRO (HUMAN) 19957381321 No Longer Active Alina Castaneda MD PhD Active TRUETEST TEST STRP check sugars 4x/day GLUCOSE BLOOD 96340284471 No Longer Active Alina Castaneda MD PhD Active MORPHINE SULFATE 30 MG TABS 1 pill by mouth twice daily, for pain MORPHINE SULFATE 46794037071 No Longer Active Mason Loredo MD Active ACYCLOVIR 400 MG ORAL TABS 1 pill three times daily x 5 days, for cold sore outbreak ACYCLOVIR 73674781053 No Longer Active Alina Castaneda MD PhD Active PENICILLIN V POTASSIUM 500 MG TABS 1 pill by mouth three times daily PENICILLIN V POTASSIUM 43472114999 No Longer Active Alina Castaneda MD PhD Active UROXATRAL 10 MG [id number] Take 1 tablet by mouth daily ALFUZOSIN HCL 20519673127 No Longer Active Alina Castaneda MD PhD Active THIOTHIXENE 5 MG CAPS by mouth twice a day THIOTHIXENE 17918787533 No Longer Active Alina Castaneda MD PhD Active ZYPREXA 7.5 MG TABS 1 at HS OLANZAPINE 81614455803 No Longer Active Alina Castaneda MD PhD Active BD INSULIN SYRINGE 28G X 1/2" 1 ML MISC 1 four times per day INSULIN SYRINGE-NEEDLE U-100 07154301544 Active Marvel Mackenzieglestela PHLEBOTOMY LAB ASSISTANT Active DETROL LA 4 MG [id number] Take 1 tablet by mouth daily TOLTERODINE TARTRATE 55747520872 No Longer Active Alina Castaneda MD PhD Active TERESE CONTOUR TEST STRP monitor blood sugars 3x/day GLUCOSE BLOOD 58906608384 No Longer Active Alina Castaneda MD PhD Active EQL TRUETEST TEST STRP Test blood sugar TID GLUCOSE BLOOD 74713869009 No Longer Active Alina Castaneda MD PhD Active FLUTICASONE PROPIONATE 50 MCG/ACT SUSP 2 sprays each nostril qDay x 30 days FLUTICASONE PROPIONATE 80965262220 No Longer Active Alina Castaneda MD PhD Active IBUPROFEN 200 MG TABS 1 Q 6 hr. PRN IBUPROFEN 39183173605 No Longer Active Alina Castaneda MD PhD Active NIACIN ER 500 MG CR-TABS 4 qHS (for triglycerides) NIACIN 12429424641 No Longer Active Alina Castaneda MD PhD Active ALFUZOSIN HCL ER 10 MG [id number] 1 tablet daily ALFUZOSIN HCL 59416134565 Active CRYSTAL Rodrigues Active SAPHRIS 5 MG SUBL by mouth twice a day ASENAPINE MALEATE 69559029668 No Longer Active Maljohn Ziglestela MENDOZAP Active ACETAMINOPHEN 500 MG TABS 2 Q 6 hr. PRN ACETAMINOPHEN 03726684679 No Longer Active Mallashondaeh 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 PHLEBOTOMY LAB ASSISTANT Active ORPHENADRINE CITRATE ER 100 MG [id number]-PTZ 1 every 12 hr. as needed ORPHENADRINE CITRATE 14654748564 No Longer Active Alina Castaneda MD PhD Active NIACIN CR 500 MG CR-TABS 2 qHS NIACIN 73151473690 No Longer Active Alina Castaneda MD PhD Active AMOXICILLIN 500 MG CAPS 2 po BID x 10 days AMOXICILLIN 98335346250 No Longer Active Alina Castaneda MD PhD Active HYDROCODONE-ACETAMINOPHEN 7.5-325 MG TABS 1 four times a day as needed for pain HYDROCODONE-ACETAMINOPHEN 71011105403 No Longer Active Alina Castaneda MD PhD Active DOXEPIN HCL 10 MG CAPS Take 1 tablet by mouth daily DOXEPIN HCL 96031946939 No Longer Active Salina Han [facility] Active NAVANE 10 MG CAPS 1/2 tablet twice a day THIOTHIXENE No Longer Active Salina Han A Active CYCLOBENZAPRINE HCL 10 MG TABS 1/2 tablet by mouth every 8 hours as needed for muscle spasms CYCLOBENZAPRINE HCL 28818523773 No Longer Active Alina Castaneda MD PhD Active BACTROBAN 2 % CREAM apply to ear and nose twice daily MUPIROCIN CALCIUM 86535264540 No Longer Active Alina Castaneda MD PhD Active HYDROCODONE-ACETAMINOPHEN 5-325 MG TABS take one tablet by mouth every four hours as needed for pain HYDROCODONE-ACETAMINOPHEN 12680654194 No Longer Active Alina Castaneda MD PhD Active ZYPREXA 5 MG TABS take one tablet by mouth every evening OLANZAPINE 35470843122 No Longer Active Alina Castaneda MD PhD Active ALBUTEROL SULFATE 0.083 % NEBU SOLN one vial per nebulizer TID and PRN cough/ soa ALBUTEROL SULFATE 94399908443 No Longer Active Alina Castaneda MD PhD Active GUAIFENESIN 600 MG [id number] 1 tablet by mouth twice daily if needed for cough GUAIFENESIN 27031877090 No Longer Active Marvel Charles [facility] Active AZITHROMYCIN 500 MG SOLR 1 po q day AZITHROMYCIN 06080716541 No Longer Active Alina Castaneda MD PhD Active PROMETHAZINE-CODEINE 6.25-10 MG/5ML SYRP 1 tsp po q 6 hours prn cough PROMETHAZINE-CODEINE 64875253622 No Longer Active Alina Castaneda MD PhD Active CEFDINIR 300 MG CAPS by mouth twice a day CEFDINIR 51957403965 No Longer Active Alina Castaneda MD PhD Active METFORMIN HCL 500 MG [id number] Take 3 tablets by mouth everyday METFORMIN HCL 81724096373 No Longer Active Alina Castaneda MD PhD Active LEVEMIR 100 UNIT/ML SOLN 90 units SQ qHS INSULIN DETEMIR 09405307503 No Longer Active Marvel MARROQUIN Active TOPROL XL 100 MG [id number] 1 @ HS METOPROLOL SUCCINATE 54694068031 No Longer Active Marvel MARROQUIN Active ALLOPURINOL 300 MG TABS Take one by mouth daily ALLOPURINOL 97861436967 Active Mimacecily Fierroum ELECTRICAL MECHANIC Active ZYPREXA 10 MG TABS Take one by mouth daily OLANZAPINE 09546385582 No Longer Active Alina Castaneda MD PhD Active NOVOLOG 100 UNIT/ML SOLN 40 units with every meal INSULIN ASPART 45809948170 No Longer Active Alina Castaneda MD PhD Active VERAPAMIL HCL CR 120 MG TAB CR 1 qPM VERAPAMIL HCL 43603311506 No Longer Active Salina ROJAS Active ZYPREXA 15 MG TABS Take 1 tablet by mouth daily OLANZAPINE 32683082054 No Longer Active Marvel MARROQUIN Active ALBUTEROL SULFATE (2.5 MG/3ML) 0.083% NEBU 1 neb tid and prn cough ALBUTEROL SULFATE 23929526860 No Longer Active Alina Castaneda MD PhD Active LANTUS 100 UNIT/ML SOLN 60 units sq q hs INSULIN GLARGINE 99445033500 No Longer Active CRYSTAL Suarez Active ALBUTEROL SULFATE (2.5 MG/3ML) 0.083% NEBU 1 neb tid and prn cough ALBUTEROL SULFATE (2.5 MG/3ML) 0.083% NEBU 978007 ALBUTEROL SULFATE Inactive ZYPREXA 15 MG TABS Take 1 tablet by mouth daily ZYPREXA 15 MG TABS 237147 OLANZAPINE Inactive VERAPAMIL HCL CR 120 MG TAB CR 1 qPM VERAPAMIL HCL CR 120 MG TAB CR VERAPAMIL HCL Inactive ZYPREXA 10 MG TABS Take one by mouth daily ZYPREXA 10 MG TABS 356303 OLANZAPINE Inactive TOPROL XL 100 MG [id number] 1 @ HS TOPROL XL 100 MG [id number] METOPROLOL SUCCINATE Inactive LEVEMIR 100 UNIT/ML SOLN 90 units SQ qHS LEVEMIR 100 UNIT/ML SOLN INSULIN DETEMIR Inactive PROMETHAZINE-CODEINE 6.25-10 MG/5ML SYRP 1 tsp po q 6 hours prn cough PROMETHAZINE-CODEINE 6.25-10 MG/5ML SYRP 520397 PROMETHAZINE- CODEINE Inactive GUAIFENESIN 600 MG [id number]-DKB 1 tablet by mouth twice daily if needed for cough GUAIFENESIN 600 MG [id number]-DWV GUAIFENESIN Inactive ALBUTEROL SULFATE 0.083 % NEBU SOLN one vial per nebulizer TID and PRN cough/ soa ALBUTEROL SULFATE 0.083 % NEBU SOLN 103097 ALBUTEROL SULFATE Inactive ZYPREXA 5 MG TABS take one tablet by mouth every evening ZYPREXA 5 MG TABS 342034 OLANZAPINE Inactive HYDROCODONE-ACETAMINOPHEN 5-325 MG TABS take one tablet by mouth every four hours as needed for pain HYDROCODONE-ACETAMINOPHEN 5-325 MG TABS 332514 HYDROCODONE-ACETAMINOPHEN Inactive BACTROBAN 2 % CREAM apply to ear and nose twice daily BACTROBAN 2 % CREAM 476688 MUPIROCIN CALCIUM Inactive CYCLOBENZAPRINE HCL 10 MG TABS 1/2 tablet by mouth every 8 hours as needed for muscle spasms CYCLOBENZAPRINE HCL 10 MG TABS 353403 CYCLOBENZAPRINE HCL Inactive NAVANE 10 MG CAPS 1/2 tablet twice a day NAVANE 10 MG CAPS THIOTHIXENE Inactive DOXEPIN HCL 10 MG CAPS Take 1 tablet by mouth daily DOXEPIN HCL 10 MG CAPS 3537785 DOXEPIN HCL Inactive HYDROCODONE-ACETAMINOPHEN 7.5-325 MG TABS 1 four times a day as needed for pain HYDROCODONE-ACETAMINOPHEN 7.5-325 MG TABS 673269 HYDROCODONE-ACETAMINOPHEN Inactive NIACIN CR 500 MG CR-TABS 2 qHS NIACIN CR 500 MG CR- TABS NIACIN Inactive ORPHENADRINE CITRATE ER 100 MG [id number] 1 every 12 hr. as needed ORPHENADRINE CITRATE ER 100 MG [id number] ORPHENADRINE CITRATE Inactive ACETAMINOPHEN 500 MG TABS 2 Q 6 hr. PRN ACETAMINOPHEN 500 MG TABS 343922 ACETAMINOPHEN Inactive SAPHRIS 5 MG SUBL by mouth twice a day SAPHRIS 5 MG SUBL ASENAPINE MALEATE Inactive NIACIN ER 500 MG CR-TABS 4 qHS (for triglycerides) NIACIN ER 500 MG CR-TABS NIACIN Inactive IBUPROFEN 200 MG TABS 1 Q 6 hr. PRN IBUPROFEN 200 MG TABS 689437 IBUPROFEN Inactive FLUTICASONE PROPIONATE 50 MCG/ACT SUSP 2 sprays each nostril qDay x 30 days FLUTICASONE PROPIONATE 50 MCG/ACT SUSP 814822 FLUTICASONE PROPIONATE Inactive EQL TRUETEST TEST STRP Test blood sugar TID EQL TRUETEST TEST STRP GLUCOSE BLOOD Inactive TERESE CONTOUR TEST STRP monitor blood sugars 3x/day TERESE CONTOUR TEST STRP GLUCOSE BLOOD Inactive DETROL LA 4 MG [id number] Take 1 tablet by mouth daily DETROL LA 4 MG [id number] TOLTERODINE TARTRATE Inactive ZYPREXA 7.5 MG TABS 1 at HS ZYPREXA 7.5 MG TABS 773747 OLANZAPINE Inactive THIOTHIXENE 5 MG CAPS by mouth twice a day THIOTHIXENE 5 MG CAPS 431081 THIOTHIXENE Inactive UROXATRAL 10 MG [id number]-HDO Take 1 tablet by mouth daily UROXATRAL 10 MG [id number] ALFUZOSIN HCL Inactive ACYCLOVIR 400 MG ORAL TABS 1 pill three times daily x 5 days, for cold sore outbreak ACYCLOVIR 400 MG ORAL TABS 060741 ACYCLOVIR Inactive TRUETEST TEST STRP check sugars 4x/day TRUETEST TEST STRP GLUCOSE BLOOD Inactive HUMALOG 100 UNIT/ML SOLN Take 20 units with breakfast, 10u with lunch and suppetr. HUMALOG 100 UNIT/ML SOLN INSULIN LISPRO ( HUMAN) Inactive CYCLOBENZAPRINE HCL 10 MG TABS 1 tablet by mouth three times daily, scheduled CYCLOBENZAPRINE HCL 10 MG TABS 860158 CYCLOBENZAPRINE HCL Inactive ACCU-CHEK ROSA INVITR STRP use strips with device to check blood sugars 3 times daily ACCU-CHEK ROSA INVITR STRP GLUCOSE BLOOD Inactive ACCU-CHEK ROSA UZMA Use device to check blood sugars ACCU-CHEK ROSA UZMA BLOOD GLUCOSE MONITORING SUPPL Inactive FLUVOXAMINE MALEATE 100 MG ORAL TABS Take 1/2 tab at noon FLUVOXAMINE MALEATE 100 MG ORAL TABS 109266 FLUVOXAMINE MALEATE Inactive FLUVOXAMINE MALEATE 100 MG TABS Take one (1) tablet by mouth am, 1/2 at noon FLUVOXAMINE MALEATE 100 MG TABS 659353 FLUVOXAMINE MALEATE Inactive BACTROBAN 2 % CREAM Apply to affected area BID for up to 10 days BACTROBAN 2 % CREAM 646868 MUPIROCIN CALCIUM Inactive NOVOFINE 32G X 6 MM MISC use one four times per day NOVOFINE 32G X 6 MM MISC INSULIN PEN NEEDLE Inactive TRAZODONE HCL 100 MG ORAL TABS 1 tab by mouth for sleep TRAZODONE HCL 100 MG ORAL TABS 223398 TRAZODONE HCL Inactive LOVAZA 1 GM CAPS 4 daily (for triglycerides) LOVAZA 1 GM CAPS 835433 [id number]-[id number] ETHYL ESTERS Inactive METFORMIN HCL ER 500 MG BF85M-SLW Take three tablets by mouth everyday METFORMIN HCL ER 500 MG [id number]-BAU METFORMIN HCL Inactive METOPROLOL SUCCINATE 100 MG AU99A-RHK 1 by mouth daily for blood pressure METOPROLOL SUCCINATE 100 MG JZ55G-XVZ METOPROLOL SUCCINATE Inactive AMITIZA 24 MCG ORAL CAPS Take one capsule BID for constipation. AMITIZA 24 MCG ORAL CAPS LUBIPROSTONE Inactive TOLTERODINE TARTRATE 2 MG TABS 1 pill twice daily, for bladder TOLTERODINE TARTRATE 2 MG TABS 177625 TOLTERODINE TARTRATE Inactive COLACE 100 MG CAPS 1 pill by mouth twice daily, for constipation COLACE 100 MG CAPS 4598465 DOCUSATE SODIUM Inactive LOMOTIL 2.5-0.025 MG ORAL TABS take 1-2 tabs PO after each stool, no more than 8 in 24 hours LOMOTIL 2.5-0.025 MG ORAL TABS 4174357 DIPHENOXYLATE-ATROPINE Inactive ZOFRAN 4 MG TABS 1 po q4hr PRN Nausea ZOFRAN 4 MG TABS 524074 ONDANSETRON HCL Inactive HYDROCODONE-ACETAMINOPHEN 5-325 MG TABS 2 tabs by mouth three times daily for pain HYDROCODONE-ACETAMINOPHEN 5-325 MG TABS 193436 HYDROCODONE-ACETAMINOPHEN Inactive ZOLPIDEM TARTRATE 10 MG TABS take at bedtime ZOLPIDEM TARTRATE 10 MG TABS 084788 ZOLPIDEM TARTRATE Inactive LISINOPRIL 20 MG TABS 1 BID LISINOPRIL 20 MG TABS 326236 LISINOPRIL Inactive TRAVATAN Z 0.004 % SOLN 1 gtt each eye daily TRAVATAN Z 0.004 % SOLN TRAVOPROST Inactive LATUDA 60 MG ORAL TABS Take one by mouth daily LATUDA 60 MG ORAL TABS LURASIDONE HCL Inactive CEFDINIR 300 MG CAPS by mouth twice a day CEFDINIR 300 MG CAPS 838139 CEFDINIR Inactive AZITHROMYCIN 500 MG SOLR 1 po q day AZITHROMYCIN 500 MG SOLR 00255723253 AZITHROMYCIN Inactive AMOXICILLIN 500 MG CAPS 2 po BID x 10 days AMOXICILLIN 500 MG CAPS 150072 AMOXICILLIN Inactive PENICILLIN V POTASSIUM 500 MG TABS 1 pill by mouth three times daily PENICILLIN V POTASSIUM 500 MG TABS 346566 PENICILLIN V POTASSIUM Inactive KEFLEX 500 MG CAP 1 po BID x 7 days KEFLEX 500 MG CAP 176848 CEPHALEXIN Inactive Immunizations Vaccine Administration Date Value [...] Fluvirin, Fluarix, Agriflu(>=18 yo)) Fluzone (>3 yrs.) [[id number]] Influenza, seasonal, injectable pneumococcal immunization administered Pneumovax 23 [CVX33] pneumococcal polysaccharide vaccine, 23 valent Vital Signs Date Name Value Unit Range Description blood pressure, diastolic - 8462-4 74 mm[Hg] BP garcia blood pressure, systolic - 8480-6 133 mm[Hg] BP sys pulse rate E&M - 8867-4 68 /min Heart rate temperature E&M 97.7 [degF] Body temperature weight E&M - 3141-9 211.5 [lb_av] Weight Measured blood pressure, diastolic - 8462-4 69 mm[Hg] BP garcia blood pressure, systolic - 8480-6 127 mm[Hg] BP sys pulse rate E&M - 8867-4 70 /min Heart rate temperature E&M 97.8 [degF] Body temperature weight E&M - 3141-9 211.0 [lb_av] Weight Measured blood pressure, diastolic - 8462-4 80 mm[Hg] BP garcia blood pressure, systolic - 8480-6 138 mm[Hg] BP sys pulse rate E&M - 8867-4 71 /min Heart rate temperature E&M 98.0 [degF] Body temperature weight E&M - 3141-9 208.8 [lb_av] Weight Measured blood pressure, diastolic - 8462-4 77 mm[Hg] [...] E&M - 3141-9 232 [lb_av] Weight Measured Diagnostic Results Date Name Value Unit Range Description Lab Report: CBC W/DIFF, Basic Metabolic Panel - Chemistry sodium, serum 137 mmol/L 906-238 6828/10/12 potassium, serum 4.8 mmol/L 3.5-5.2 chloride, serum 102 mmol/L 98-107 carbon dioxide, venous blood 27.6 mmol/L 21.0-32.0 blood glucose 168 mg/dL 65-110 calcium, serum 9.0 mg/dL 8.5-10.1 urea nitrogen, blood 15 mg/dL 7-18 creatinine, serum 1.04 mg/dL 0.55-1.30 sodium, serum 138 mmol/L 201-641 5029/11/11 potassium, serum 4.7 mmol/L 3.5-5.2 chloride, serum [...] % 11.6-14.8 platelet count 240 10^3/MM^3 10*3/mm3 796-800 5178/11/11 leukocyte count, blood 9.6 10^3/MM^3 10*3/mm3 4.6-10.2 [...] Acid - Chemistry cholesterol, serum 187 mg/dL 665-408 7207/06/14 triglyceride, serum, fasting 246 mg/dL 30-200 HDL cholesterol, serum 27 mg/dL 32-96 LDL cholesterol, serum 111 mg/dL 0-130 aspartate aminotransferase (SGOT), serum 25 U/L 15-37 alanine aminotransferase (SGPT), serum 48 U/L 12-78 bilirubin, serum, total 0.40 mg/dL 0.00-1.00 uric acid, serum 4.2 mg/dL 2.6-7.2 Lab Report: MICROALB/CREAT W/RATIO - Chemistry albumin/creatinine [...] negative Office Visit: Difficulty urinating - Chemistry RBC, [...] negative Encounters Code Encounter Date Provider Facility CPT-26857 Level 3 Est. Patient 17:40:16 CDT Mima Erazo [facility] CPT-71376 Level 3 Est. Patient 14:34:52 CDT Vanessa Hickey MD [facility] CPT-30587 Level 3 Est. Patient 16:27:51 CDT Mima Erazo [facility] CPT-96201 Level 3 Est. Patient 14:39:00 COMPUTER FORENSICS TECHNICIAN Vanessa Hickey MD [facility] CPT-84408 Level 2 Est. Patient 18:43:34 CDT Mima Erazo [facility] CPT-69501 Level 3 Est. Patient 16:22:09 CDT Cherelle Avila [facility] CPT-67283 Level 4 Est. Patient 17:55:14 CDT Mima Erazo [facility] CPT-47532 Level 2 Est. Patient 17:13:21 CDT Alina Castaneda MD [facility]-87830 Level 3 Est. Patient 14:46:15 CDT Vanessa Hickey MD [facility]-97573 Level 3 Est. Patient 09:34:56 CDT Alina Castaneda MD [facility]50424 Level 3 Est. Patient 21:40:19 CDT Mima Erazo [facility]-98042 Level 3 Est. Patient 09:26:40 CDT Marvel Charles [facility]-13439 Level 3 Est. Patient 12:36:43 CDT Vanessa Hickey MD [facility]04990 Level 3 Est. Patient 12:57:49 CDT Vanessa Hickey MD [facility]51614 Level 3 Est. Patient 00:28:25 CDT Alina Castaneda MD [facility]50068 Level 2 Est. Patient 12:52:14 CDT Alina Castaneda MD [facility]17553 Level 3 Est. Patient 11:51:18 COMPUTER FORENSICS TECHNICIAN Alina Castaneda MD [facility]-23803 Level 3 Est. Patient 10:09:22 COMPUTER FORENSICS TECHNICIAN Alina Castaneda MD [facility]40920 Level 3 Est. Patient 14:36:26 COMPUTER FORENSICS TECHNICIAN Marvel Charles [facility]52020 Level 3 Est. Patient 13:34:47 COMPUTER FORENSICS TECHNICIAN Alina Castaneda MD [facility]46417 Level 3 Est. Patient 19:52:08 COMPUTER FORENSICS TECHNICIAN Alina Castaneda MD [facility]12782 Level 3 Est. Patient 10:01:51 COMPUTER FORENSICS TECHNICIAN Marvel Charles [facility]-16793 Level 3 Est. Patient 21:54:06 CDT Vanessa Hickey MD [facility]-00184 Level 3 Est. Patient 08:54:46 CDT Alina Castaneda MD [facility]-10908 Level 3 Est. Patient 09:32:11 CDT Marvel Arac[facility]-86148 Level 3 Est. Patient 12:02:49 CDT Alina Castaneda MD [facility]06038 Level 3 Est. Patient 19:17:33 CDT Alina Castaneda MD [facility]71735 Level 3 Est. [facility]:19:10 [facility]70528 Level 3 Est. Patient 08:20:05 CDT Alina Castaneda MD [facility]-98811 Level 3 Est. Patient 15:17:18 CDT Alina Castaneda MD [facility]16829 Level 3 Est. Patient 14:25:36 COMPUTER FORENSICS TECHNICIAN [facility]99873 Level 3 Est. Patient 10:09:15 COMPUTER FORENSICS TECHNICIAN [facility]-40254 Level 3 Est. Patient 21:28:43 CDT Alina Castaneda MD [facility]54424 Level 3 Est. Patient 15:20:11 CDT [place] [facility]-51415 Level 4 Est. Patient 19:08:12 CDT Alina Castaneda MD [facility]86128 Level 3 Est. Patient 15:06:39 CDT [facility]-93371 Level 4 Est. Patient 17:48:15 CDT Alina Castaneda MD [facility]-60071 Level 3 Est. Patient 14:53:49 CDT Alina Castaneda MD [facility]-25335 Level 3 Est. Patient 09:35:16 CDT Alina Castaneda MD [facility]-39612 Level 3 Est. Patient 12:23:22 CDT Alina Castaneda MD [facility]-45587 Level 3 Est. Patient 16:19:15 CDT Alina Castaneda MD [facility]-78598 Level 3 Est. Patient 21:39:56 COMPUTER FORENSICS TECHNICIAN Alina Castaneda MD [facility]-06251 Level 4 Est. Patient 14:12:56 COMPUTER FORENSICS TECHNICIAN Alina Castaneda MD [facility]-01318 Level 2 Est. Patient 15:34:57 COMPUTER FORENSICS TECHNICIAN Alina Castaneda MD [facility]-53399 Level 3 Est. Patient 12:17:04 COMPUTER FORENSICS TECHNICIAN Alina Castaneda MD [facility]-60793 Level 3 Est. Patient 09:18:18 COMPUTER FORENSICS TECHNICIAN Marvel Charles [facility]-78539 Level 2 Est. Patient 21:50:24 CDT Alina Castaneda MD [facility]-66723 Level 3 Est. Patient 09:17:28 CDT Marvel [facility]-38693 Level 4 Est. Patient 18:54:02 CDT Alina Castaneda MD [facility]04715 Level 3 Est. Patient 10:47:10 CDT Alina Castaneda MD [facility]-39453 Level 3 Est. Patient 09:22:20 CDT Marvel Charles [facility] [place][note 2] CPT-90518 Level 3 Est. Patient 16:39:43 CDT [facility]79 Level 3 Est. Patient 16:05:16 CDT Alina Castaneda MD [facility] CPT-73341 Level 3 Est. Patient 00:29:15 CDT Alina Castaneda MD [facility] CPT-30137 Level 3 Est. Patient 10:49:22 COMPUTER FORENSICS TECHNICIAN Marvel Thurstonestela [facility] [place][note 2] CPT-39578 Level 3 Est. Patient 21:30:19 COMPUTER FORENSICS TECHNICIAN Alina Castaneda MD [facility] CPT-76947 Level 4 Est. Patient 17:04:11 COMPUTER FORENSICS TECHNICIAN [facility] C[facility]-53849 Level 3 Est. Patient 15:34:11 COMPUTER FORENSICS TECHNICIAN [facility]85711 Level 2 Est. Patient 12:51:58 COMPUTER FORENSICS TECHNICIAN Alina Castaneda MD [facility] CPT-62332 Level 3 Est. Patient 13:20:01 COMPUTER FORENSICS TECHNICIAN Alina Castaneda MD [facility] CPT-09771 Level 3 Est. Patient 09:23:35 CDT Alina Castaneda MD [facility] Procedures Code Procedure Name Date Entry Date Standard Description CPT-TCMM Transitional Care Mgmt-Moderate 10:25:31 CDT CPT-97010 Bladder Scan 14:34:53 CDT CPT-28338 Bladder Scan 14:39:01 COMPUTER FORENSICS TECHNICIAN CPT-TCMM Transitional Care Mgmt-Moderate 10:30:19 COMPUTER FORENSICS TECHNICIAN CPT-57370 Bladder Scan 12:36:44 CDT CPT-26585 Bladder Scan 21:54:06 CDT CPT-G0008 Administration of Influenza Virus Vaccine 13:05:26 CDT CPT-01840 Fluzone Quadrivalent Intramuscular Suspension 0.5 ML 13: 05:26 CDT CPT-60455 Administration single or combination vaccine inc oral 11 :49:51 CDT CPT-25896 Pneumovax 11:49:51 CDT CPT-27736 Ribs unilateral 2V 12:37:22 COMPUTER FORENSICS TECHNICIAN CPT-81859 Chest 2V Frontal and Lat 17:15:26 CDT CPT-83691 Abx/Therapy Injection 18:54:02 CDT CPT-J0696 Rocephin 1000 mg (Ceftriaxone) 16:00:32 CDT CPT-29537 Chest 2V Frontal and Lat 15:26:45 CDT CPT-71237 Chest 2V Frontal and Lat 10:23:27 CDT CPT-39089 Venipuncture Draw Fee 10:11:00 CDT CPT-95910 Administration single or combination vaccine inc oral 11 :56:38 CDT CPT-90060 Influenza split virus > age 3 11:56:38 CDT CPT-36946 Venipuncture Draw Fee 08:49:54 COMPUTER FORENSICS TECHNICIAN CPT-79682 EKG Trac and Interp 17:54:19 COMPUTER FORENSICS TECHNICIAN
--- OUTSIDE RECORDS SUMMARY | 2018-07-02 13:28 | XMS REPORT | Clinical Summary ---
Author Author Admin, TERELL Organization [facility] Address Unknown Phone Unavailable Allergies, 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 Erazo [employer] Benign paroxysmal positional vertigo Vertigo, benign paroxysmal position 386.11 Inactive Mima Erazo [employer] Benign paroxysmal positional vertigo High-risk sexual behavior V69.2 Active Alina Castaneda MD PhD High-risk sexual behavior Erectile dysfunction 302.72 Active Alina Castaneda MD PhD Psychosexual dysfunction with inhibited sexual excitement Constipation 564.00 Active Alina Castaneda MD PhD Constipation, unspecified Skin lesion 709.9 Active Alina Castaneda MD PhD Unspecified disorder of skin and subcutaneous tissue Malaise and fatigue 780.79 Active Cherelle Speaks [employer]ENT Other malaise and fatigue Diarrhea 787.91 Active Cherelle Speaks [employer] SUPERINT[employer]ENT Diarrhea PHARYNGITIS 462 Active Cherelle Speaks [employer] SUPERINTENDENT Acute pharyngitis Colitis 558.9 Active Mima Erazo [employer]PER[employer] Other and unspecified noninfectious gastroenteritis and colitis WOUND, OPEN, NOSE ICD-873.20 Inactive Alina Castaneda MD PhD DIABETES, TYPE 2 ICD-250.00 Inactive Alina Castaneda MD PhD HYPERTENSION ICD-401.9 Inactive Alina Castaneda MD PhD URI ICD-465.9 Inactive Alina Castaneda MD PhD CHEST PAIN ICD-786.50 Inactive Alina Castaneda MD PhD FH STROKE ICD-V17.1 Inactive Marvel Charles [employer] FATIGUE ICD-780.79 Inactive Alina Castaneda MD PhD [...] MD PhD Chest pain, atypical ICD-786.59 Inactive Alnia Castaneda MD PhD Medication List Medication Instructions Start Date Stop Date Generic Name NDC Status Provider Patient Instruction AMITIZA 24 MCG ORAL CAPS Take one capsule BID for constipation LUBIPROSTONE 34347621775 Active Mima Erazo [employer] SUPERINTENDENT Active LEVEMIR FLEXTOUCH 100 UNIT/ML SC SOPN 75 units SQ each evening, for diabetes INSULIN DETEMIR 51907169933 Active Salina ROBBINSA Active TRUEPLUS LANCETS 30G MISC 3 a day LANCETS 93587779256 Active Marvel Charles [employer] Active TOLTERODINE TARTRATE 2 MG TABS 1 pill twice daily, for bladder TOLTERODINE TARTRATE 74035220084 No Longer Active Vanessa Hickey MD Active AMITIZA 24 MCG ORAL CAPS Take one capsule BID for constipation. LUBIPROSTONE 86477829507 No Longer Active Vanessa Hickey MD Active LOMOTIL 2.5-0.025 MG ORAL TABS take 1-2 tabs PO after each stool, no more than 8 in 24 hours DIPHENOXYLATE-ATROPINE 01792951261 Active Grace ROJAS Active FLUVOXAMINE MALEATE 100 MG ORAL TABS take one tab every AM et HS, and take 1/ 2 tab at noon FLUVOXAMINE MALEATE 43784115659 Active Grace Nascimento RMA Active METOPROLOL SUCCINATE 100 MG PC60I-TTP 1 by mouth daily for blood pressure METOPROLOL SUCCINATE 42424891669 No Longer Active Grace Nascimento RMA Active METFORMIN HCL ER 500 MG BS10O-PIS Take three tablets by mouth everyday METFORMIN HCL 60543518855 No Longer Active Grace Azam RMA Active LOVAZA 1 GM CAPS 4 daily (for triglycerides) OMEGA-3- ACID ETHYL ESTERS 56785927754 No Longer Active Grace Azam RMA Active TRAZODONE HCL 100 MG ORAL TABS 1 tab by mouth for sleep TRAZODONE HCL 58850253564 No Longer Active Gracekailee Nelsonb RMA Active NOVOFINE 32G X 6 MM MISC use one four times per day INSULIN PEN NEEDLE 05130071461 No Longer Active Grace Nascimento RMA Active BACTROBAN 2 % CREAM Apply to affected area BID for up to 10 days MUPIROCIN CALCIUM 64779437488 No Longer Active Grace Nascimento RMA Active ZOFRAN 4 MG TABS 1 po q4hr PRN Nausea ONDANSETRON HCL 67241893298 Active Salina Han RMA Active KEFLEX 500 MG CAP 1 po BID x 7 days CEPHALEXIN 15632865466 No Longer Active Cherelle Avila [employer] SUPERINTENDENT Active FLUVOXAMINE MALEATE 100 MG TABS Take one (1) tablet by mouth am, 1/2 at noon FLUVOXAMINE MALEATE 79354435440 No Longer Active Mima Aguilarliudmila [employer] SUPERINTENDENT Active CORICIDIN HBP CONGESTION/COUGH 10-200 MG ORAL CAPS Take as directed on box as needed for cold/flu symptoms DEXTROMETHORPHAN-GUAIFENESIN 50889407635 Active Cherelle Speaks [employer]ING SUPERINTENDENT Active OMEGA-3 300 MG ORAL CAPS 4 caps by mouth daily OMEGA-3 FATTY ACIDS 35508644647 Active Cherelle Speaks [employer]ING SUPERINTENDENT Active FLUVOXAMINE MALEATE 100 MG ORAL TABS Take 1/2 tab at noon FLUVOXAMINE MALEATE 08634132038 No Longer Active Cherelle Avila ALBAN Active [facility] LU[facility] E[facility] DROPS 0.4-0.3 % OPHTH SOLN POLYETHYL GLYCOL-PROPYL GLYCOL 70247217615 Active Mima Yoliudmila [employer] SUPERINTENDENT Active CLONAZEPAM 1 MG TABS 1/2 pill by mouth three times daily CLONAZEPAM 48054146132 Active Alina Castaneda MD PhD Active MIRALAX POWD 17g by mouth daily, for constipation POLYETHYLENE GLYCOL 3350 52598474698 Active Alina Castaneda MD PhD Active HYDROCODONE-ACETAMINOPHEN 5-325 MG TABS 2 tabs by mouth three times daily for pain HYDROCODONE-ACETAMINOPHEN 02104795077 Active Mima Aguilarliudmila REYESN Active HUMALOG KWIKPEN 100 UNIT/ML SC SOPN 20 units with breakfast, 10 units with lunch, 10 units with dinner, for diabetes INSULIN LISPRO (HUMAN ) 29633605917 Active Alina Castaneda MD PhD Active LATUDA 120 MG ORAL TABS 1 pill by mouth nightly LURASIDONE HCL 43490962471 Active Alina Castaneda MD PhD Active COLACE 100 MG CAPS 1 pill by mouth twice daily, for constipation DOCUSATE SODIUM 08688657246 Active Alina Castaneda MD PhD Active TRUETEST TEST STRP check blood sugars 3x/day GLUCOSE BLOOD 81147029923 Active Marvel Mackenzieglari [employer] FINISHER Active ACCU-CHEK ROSA UZMA Use device to check blood sugars BLOOD GLUCOSE MONITORING SUPPL 38344165789 No Longer Active Maliheh Ziglari [employer] W[employer] FINISHER Active ACCU-CHEK ROSA INVITR STRP use strips with device to check blood sugars 3 times daily GLUCOSE BLOOD 59556783438 No Longer Active Maliheh 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 [employer] FINISHER Active VERAPAMIL HCL ER 180 MG ORAL CR-TABS 1 pill by mouth twice daily, for migraine prevention VERAPAMIL HCL 21131899749 Active Alina Castaneda MD PhD Active CYCLOBENZAPRINE HCL 10 MG TABS 1 tablet by mouth three times daily, scheduled CYCLOBENZAPRINE HCL 98452644487 No Longer Active Alina Castaneda MD PhD Active HUMALOG 100 UNIT/ML SOLN Take 20 units with breakfast, 10u with lunch and suppetr. INSULIN LISPRO (HUMAN) 78906189335 No Longer Active Alina Castaneda MD PhD Active TRUETEST TEST STRP check sugars 4x/day GLUCOSE BLOOD 74567769237 No Longer Active Alina Castaneda MD PhD Active MORPHINE SULFATE 30 MG TABS 1 pill by mouth twice daily, for pain MORPHINE SULFATE 74033123956 Active Mima Erazo [employer] SUPERINTENDENT Active ACYCLOVIR 400 MG ORAL TABS 1 pill three times daily x 5 days, for cold sore outbreak ACYCLOVIR 72204166503 No Longer Active Alina Castaneda MD PhD Active PENICILLIN V POTASSIUM 500 MG TABS 1 pill by mouth three times daily PENICILLIN V POTASSIUM 29611889259 No Longer Active Alina Castaneda MD PhD Active UROXATRAL 10 MG [id number]-IKS Take 1 tablet by mouth daily ALFUZOSIN HCL 45275913370 No Longer Active Alina Castaneda MD PhD Active THIOTHIXENE 5 MG CAPS by mouth twice a day THIOTHIXENE 00922239524 No Longer Active Alina Castaneda MD PhD Active ZYPREXA 7.5 MG TABS 1 at HS OLANZAPINE 72840840524 No Longer Active Alina Castaneda MD PhD Active BD INSULIN SYRINGE 28G X 1/2" 1 ML MISC 1 four times per day INSULIN SYRINGE-NEEDLE U-100 12324939950 Active Marvel Mackenzieglestela [employer] FINISHER Active DETROL LA 4 MG [id number]-EFN Take 1 tablet by mouth daily TOLTERODINE TARTRATE 32691030807 No Longer Active Alina Castaneda MD PhD Active TERESE CONTOUR TEST STRP monitor blood sugars 3x/day GLUCOSE BLOOD 50809229714 No Longer Active Alina Castaneda MD PhD Active EQL TRUETEST TEST STRP Test blood sugar TID GLUCOSE BLOOD 38055244090 No Longer Active Alina Castaneda MD PhD Active FLUTICASONE PROPIONATE 50 MCG/ACT SUSP 2 sprays each nostril qDay x 30 days FLUTICASONE PROPIONATE 50137042197 No Longer Active Alina Castaneda MD PhD Active IBUPROFEN 200 MG TABS 1 Q 6 hr. PRN IBUPROFEN 71363783771 No Longer Active Alina Castaneda MD PhD Active NIACIN ER 500 MG CR-TABS 4 qHS (for triglycerides) NIACIN 15590745369 No Longer Active Alina Castaneda MD PhD Active ALFUZOSIN HCL ER 10 MG TB91M-VEK 1 tablet daily ALFUZOSIN HCL 23898668043 Active Vanessa Hickey MD Active SAPHRIS 5 MG SUBL by mouth twice a day ASENAPINE MALEATE 54577736412 No Longer Active Maliheh Ziglari [employer] W[employer] FINISHER Active ACETAMINOPHEN 500 MG TABS 2 Q 6 hr. PRN ACETAMINOPHEN 12266542673 No Longer Active Maliheh Ziglari [employer] W[employer] FINISHER Active ORPHENADRINE CITRATE ER 100 MG [id number]-FYX 1 every 12 hr. as needed ORPHENADRINE CITRATE 66393231749 No Longer Active Alina Castaneda MD PhD Active NIACIN CR 500 MG CR-TABS 2 qHS NIACIN 68265281211 No Longer Active Alina Castaneda MD PhD Active AMOXICILLIN 500 MG CAPS 2 po BID x 10 days AMOXICILLIN 26964641040 No Longer Active Alina Castaneda MD PhD Active HYDROCODONE-ACETAMINOPHEN 7.5-325 MG TABS 1 four times a day as needed for pain HYDROCODONE-ACETAMINOPHEN 60908819372 No Longer Active Alina Castaneda MD PhD Active DOXEPIN HCL 10 MG CAPS Take 1 tablet by mouth daily DOXEPIN HCL 96142918451 No Longer Active Salina [facility] Active NAVANE 10 MG CAPS 1/2 tablet twice a day THIOTHIXENE No Longer Active Salina Han [facility] Active CYCLOBENZAPRINE HCL 10 MG TABS 1/2 tablet by mouth every 8 hours as needed for muscle spasms CYCLOBENZAPRINE HCL 53296176247 No Longer Active Alina Castaneda MD PhD Active BACTROBAN 2 % CREAM apply to ear and nose twice daily MUPIROCIN CALCIUM 54320306354 No Longer Active Alina Castaneda MD PhD Active HYDROCODONE-ACETAMINOPHEN 5-325 MG TABS take one tablet by mouth every four hours as needed for pain HYDROCODONE-ACETAMINOPHEN 21027512632 No Longer Active Alina Castaneda MD PhD Active ZOLPIDEM TARTRATE 10 MG TABS take at bedtime ZOLPIDEM TARTRATE 94893476583 Active Alina Castaneda MD PhD Active ZYPREXA 5 MG TABS take one tablet by mouth every evening OLANZAPINE 91001187930 No Longer Active Alina Castaneda MD PhD Active ALBUTEROL SULFATE 0.083 % NEBU SOLN one vial per nebulizer TID and PRN cough/ soa ALBUTEROL SULFATE 00193435288 No Longer Active Alina Castaneda MD PhD Active GUAIFENESIN 600 MG FS56V-HQO 1 tablet by mouth twice daily if needed for cough GUAIFENESIN 37567727077 No Longer Active Marvel MENDOZAP Active AZITHROMYCIN 500 MG SOLR 1 po q day AZITHROMYCIN 32141321901 No Longer Active Alina Castaneda MD PhD Active PROMETHAZINE-CODEINE 6.25-10 MG/5ML SYRP 1 tsp po q 6 hours prn cough PROMETHAZINE-CODEINE 92532672605 No Longer Active Alina Castaneda MD PhD Active CEFDINIR 300 MG CAPS by mouth twice a day CEFDINIR 41098335424 No Longer Active Alina Castaneda MD PhD Active METFORMIN HCL 500 MG YW05R-YDI Take 3 tablets by mouth everyday METFORMIN HCL 71562585705 No Longer Active Alina Castaneda MD PhD Active LEVEMIR 100 UNIT/ML SOLN 90 units SQ qHS INSULIN DETEMIR 37933161916 No Longer Active Marvel MARROQUIN Active TOPROL XL 100 MG OX58A-DXI 1 @ HS METOPROLOL SUCCINATE 93173853647 No Longer Active Marvel MARROQUIN Active ALLOPURINOL 300 MG TABS Take one by mouth daily ALLOPURINOL 89090415751 Active Alina Castaneda MD PhD Active ZYPREXA 10 MG TABS Take one by mouth daily OLANZAPINE 94183793006 No Longer Active Alina Castaneda MD PhD Active NOVOLOG 100 UNIT/ML SOLN 40 units with every meal INSULIN ASPART 34603673036 No Longer Active Alina Castaneda MD PhD Active VERAPAMIL HCL CR 120 MG TAB CR 1 qPM VERAPAMIL HCL 22168826893 No Longer Active Salina ROJAS Active ZYPREXA 15 MG TABS Take 1 tablet by mouth daily OLANZAPINE 34922049828 No Longer Active Marvel MARROQUIN Active LISINOPRIL 20 MG TABS 1 BID LISINOPRIL 13475855080 Active Alina Castaneda MD PhD Active ALBUTEROL SULFATE (2.5 MG/3ML) 0.083% NEBU 1 neb tid and prn cough ALBUTEROL SULFATE 99590823660 No Longer Active Alina Castaneda MD PhD Active TRAVATAN Z 0.004 % SOLN 1 gtt each eye daily TRAVOPROST 11736599447 Active CRYSTAL Suarez Active LANTUS 100 UNIT/ML SOLN 60 units sq q hs INSULIN GLARGINE 26556916292 No Longer Active CRYSTAL Suarez Active ALBUTEROL SULFATE (2.5 MG/3ML) 0.083% NEBU 1 neb tid and prn cough ALBUTEROL SULFATE (2.5 MG/3ML) 0.083% NEBU 872237 ALBUTEROL SULFATE Inactive ZYPREXA 15 MG TABS Take 1 tablet by mouth daily ZYPREXA 15 MG TABS 789916 OLANZAPINE Inactive VERAPAMIL HCL CR 120 MG TAB CR 1 qPM VERAPAMIL HCL CR 120 MG TAB CR VERAPAMIL HCL Inactive ZYPREXA 10 MG TABS Take one by mouth daily ZYPREXA 10 MG TABS 161397 OLANZAPINE Inactive TOPROL XL 100 MG VM52R-PIS 1 @ HS TOPROL XL 100 MG AZ53P-AGN METOPROLOL SUCCINATE Inactive LEVEMIR 100 UNIT/ML SOLN 90 units SQ qHS LEVEMIR 100 UNIT/ML SOLN INSULIN DETEMIR Inactive PROMETHAZINE-CODEINE 6.25-10 MG/5ML SYRP 1 tsp po q 6 hours prn cough PROMETHAZINE-CODEINE 6.25-10 MG/5ML SYRP 869024 PROMETHAZINE- CODEINE Inactive GUAIFENESIN 600 MG WC26R-LQR 1 tablet by mouth twice daily if needed for cough GUAIFENESIN 600 MG LT28N-TRJ GUAIFENESIN Inactive ALBUTEROL SULFATE 0.083 % NEBU SOLN one vial per nebulizer TID and PRN cough/ soa ALBUTEROL SULFATE 0.083 % NEBU SOLN 899079 ALBUTEROL SULFATE Inactive ZYPREXA 5 MG TABS take one tablet by mouth every evening ZYPREXA 5 MG TABS 662977 OLANZAPINE Inactive HYDROCODONE-ACETAMINOPHEN 5-325 MG TABS take one tablet by mouth every four hours as needed for pain HYDROCODONE-ACETAMINOPHEN 5-325 MG TABS 937233 HYDROCODONE-ACETAMINOPHEN Inactive BACTROBAN 2 % CREAM apply to ear and nose twice daily BACTROBAN 2 % CREAM 033656 MUPIROCIN CALCIUM Inactive CYCLOBENZAPRINE HCL 10 MG TABS 1/2 tablet by mouth every 8 hours as needed for muscle spasms CYCLOBENZAPRINE HCL 10 MG TABS 719613 CYCLOBENZAPRINE HCL Inactive NAVANE 10 MG CAPS 1/2 tablet twice a day NAVANE 10 MG CAPS THIOTHIXENE Inactive DOXEPIN HCL 10 MG CAPS Take 1 tablet by mouth daily DOXEPIN HCL 10 MG CAPS 5985456 DOXEPIN HCL Inactive HYDROCODONE-ACETAMINOPHEN 7.5-325 MG TABS 1 four times a day as needed for pain HYDROCODONE-ACETAMINOPHEN 7.5-325 MG TABS 824481 HYDROCODONE-ACETAMINOPHEN Inactive NIACIN CR 500 MG CR-TABS 2 qHS NIACIN CR 500 MG CR- TABS NIACIN Inactive ORPHENADRINE CITRATE ER 100 MG [id number] 1 every 12 hr. as needed ORPHENADRINE CITRATE ER 100 MG IJ31L-CQM ORPHENADRINE CITRATE Inactive ACETAMINOPHEN 500 MG TABS 2 Q 6 hr. PRN ACETAMINOPHEN 500 MG TABS 943535 ACETAMINOPHEN Inactive SAPHRIS 5 MG SUBL by mouth twice a day SAPHRIS 5 MG SUBL ASENAPINE MALEATE Inactive NIACIN ER 500 MG CR-TABS 4 qHS (for triglycerides) NIACIN ER 500 MG CR-TABS NIACIN Inactive IBUPROFEN 200 MG TABS 1 Q 6 hr. PRN IBUPROFEN 200 MG TABS 811563 IBUPROFEN Inactive FLUTICASONE PROPIONATE 50 MCG/ACT SUSP 2 sprays each nostril qDay x 30 days FLUTICASONE PROPIONATE 50 MCG/ACT SUSP 002254 FLUTICASONE PROPIONATE Inactive EQL TRUETEST TEST STRP Test blood sugar TID EQL TRUETEST TEST STRP GLUCOSE BLOOD Inactive TERESE CONTOUR TEST STRP monitor blood sugars 3x/day TERESE CONTOUR TEST STRP GLUCOSE BLOOD Inactive DETROL LA 4 MG [id number] Take 1 tablet by mouth daily DETROL LA 4 MG [id number]-DBG TOLTERODINE TARTRATE Inactive ZYPREXA 7.5 MG TABS 1 at HS ZYPREXA 7.5 MG TABS 709901 OLANZAPINE Inactive THIOTHIXENE 5 MG CAPS by mouth twice a day THIOTHIXENE 5 MG CAPS 066405 THIOTHIXENE Inactive UROXATRAL 10 MG HH84E-PRW Take 1 tablet by mouth daily UROXATRAL 10 MG PH95R-LGE ALFUZOSIN HCL Inactive ACYCLOVIR 400 MG ORAL TABS 1 pill three times daily x 5 days, for cold sore outbreak ACYCLOVIR 400 MG ORAL TABS 393824 ACYCLOVIR Inactive TRUETEST TEST STRP check sugars 4x/day TRUETEST TEST STRP GLUCOSE BLOOD Inactive HUMALOG 100 UNIT/ML SOLN Take 20 units with breakfast, 10u with lunch and suppetr. HUMALOG 100 UNIT/ML SOLN INSULIN LISPRO ( HUMAN) Inactive CYCLOBENZAPRINE HCL 10 MG TABS 1 tablet by mouth three times daily, scheduled CYCLOBENZAPRINE HCL 10 MG TABS 314460 CYCLOBENZAPRINE HCL Inactive ACCU-CHEK ROSA INVITR STRP use strips with device to check blood sugars 3 times daily ACCU-CHEK ROSA INVITR STRP GLUCOSE BLOOD Inactive ACCU-CHEK RSOA UZMA Use device to check blood sugars ACCU-CHEK ROSA UZMA BLOOD GLUCOSE MONITORING SUPPL Inactive FLUVOXAMINE MALEATE 100 MG ORAL TABS Take 1/2 tab at noon FLUVOXAMINE MALEATE 100 MG ORAL TABS 071860 FLUVOXAMINE MALEATE Inactive FLUVOXAMINE MALEATE 100 MG TABS Take one (1) tablet by mouth am, 1/2 at noon FLUVOXAMINE MALEATE 100 MG TABS 879313 FLUVOXAMINE MALEATE Inactive BACTROBAN 2 % CREAM Apply to affected area BID for up to 10 days BACTROBAN 2 % CREAM 069771 MUPIROCIN CALCIUM Inactive NOVOFINE 32G X 6 MM MISC use one four times per day NOVOFINE 32G X 6 MM MISC INSULIN PEN NEEDLE Inactive TRAZODONE HCL 100 MG ORAL TABS 1 tab by mouth for sleep TRAZODONE HCL 100 MG ORAL TABS 137059 TRAZODONE HCL Inactive LOVAZA 1 GM CAPS 4 daily (for triglycerides) LOVAZA 1 GM CAPS 793816 FKMMP-7-CCPH ETHYL ESTERS Inactive METFORMIN HCL ER 500 MG RV59G-IBV Take three tablets by mouth everyday METFORMIN HCL ER 500 MG XQ32O-XTY METFORMIN HCL Inactive METOPROLOL SUCCINATE 100 MG PS71I-IYD 1 by mouth daily for blood pressure METOPROLOL SUCCINATE 100 MG YJ19P-EXU METOPROLOL SUCCINATE Inactive AMITIZA 24 MCG ORAL CAPS Take one capsule BID for constipation. AMITIZA 24 MCG ORAL CAPS LUBIPROSTONE Inactive TOLTERODINE TARTRATE 2 MG TABS 1 pill twice daily, for bladder TOLTERODINE TARTRATE 2 MG TABS 662641 TOLTERODINE TARTRATE Inactive CEFDINIR 300 MG CAPS by mouth twice a day CEFDINIR 300 MG CAPS 116302 CEFDINIR Inactive AZITHROMYCIN 500 MG SOLR 1 po q day AZITHROMYCIN 500 MG SOLR 98538687028 AZITHROMYCIN Inactive AMOXICILLIN 500 MG CAPS 2 po BID x 10 days AMOXICILLIN 500 MG CAPS 434619 AMOXICILLIN Inactive PENICILLIN V POTASSIUM 500 MG TABS 1 pill by mouth three times daily PENICILLIN V POTASSIUM 500 MG TABS 692308 PENICILLIN V POTASSIUM Inactive KEFLEX 500 MG CAP 1 po BID x 7 days KEFLEX 500 MG CAP 781680 CEPHALEXIN Inactive Immunizations Vaccine Administration Date Value [...] Fluvirin, Fluarix, Agriflu(>=18 yo)) Fluzone (>3 yrs.) [[id number]] Influenza, seasonal, injectable pneumococcal immunization administered Pneumovax [...] E&M - 3141-9 237.6 [lb_av] Weight Measured Diagnostic Results Date Name Value Unit Range Description Lab Report: Basic Metabolic Panel, HGBA1C, MICROALBUMIN - Chemistry sodium, serum 137 mmol/L 034-409 9034/05/19 potassium, serum 5.2 mmol/L 3.5-5.2 chloride, serum [...] Panel - Chemistry sodium, serum 137 mmol/L 126-336 6976/10/12 potassium, serum 4.8 mmol/L 3.5-5.2 chloride, serum 102 mmol/L 98-107 carbon dioxide, venous blood 27.6 mmol/L 21.0-32.0 blood glucose 168 mg/dL 65-110 calcium, serum 9.0 mg/dL 8.5-10.1 urea nitrogen, blood 15 mg/dL 7-18 creatinine, serum 1.04 mg/dL 0.55-1.30 sodium, serum 138 mmol/L 289-437 9292/11/11 potassium, serum 4.7 mmol/L 3.5-5.2 chloride, serum [...] % 11.6-14.8 platelet count 252 10^3/MM^3 10*3/mm3 515-615 7129/10/12 leukocyte count, blood 5.8 10^3/MM^3 10*3/mm3 4.6-10.2 [...] 240 10^3/MM^3 10*3/mm3 142-424 Lab Report: Chlamydia/GC APTIMA/38339, HIV-1/2 Agn/Dominga/12149, RPR (DX) W ... - Chemistry hepatitis B surface antigen NON-REACTIVE NON-REACTIVE Lab Report: Chlamydia/GC APTIMA/24399, HIV-1/2 Agn/Dominga/54769, RPR (DX) W ... - Lab chlamydia DNA probe NOT DETECTED NOT DETECTED Lab Report: Chlamydia/GC APTIMA/40118, HIV-1/2 Agn/Dominga/67224, RPR (DX) W ... - Microbiology Neisseria gonorrhoeae DNA probe NOT DETECTED NOT DETECTED Lab Report: Chlamydia/GC APTIMA/67969, HIV-1/2 Agn/Dominga/97752, RPR (DX) W ... - Serology rapid plasma reagin antibody titer NON-REACTIVE NON-REACTIVE Lab Report: HGBA1C - Chemistry hemoglobin A1C, blood, as % of total hemoglobin 6.1 % 4.3-6.0 hemoglobin A1C, blood, as % of total hemoglobin 6.3 % 4.3-6.0 Lab Report: Lipid Panel, HEPATIC PANEL, MICROALBUMIN, CBC - Chemistry cholesterol, serum 131 mg/dL 113-906 7372/06/03 triglyceride, serum, fasting 383 mg/dL 30-200 HDL [...] 4.7 mg/dL 2.6-7.2 cholesterol, serum 142 mg/dL 749-676 3233/06/26 triglyceride, serum, fasting 272 mg/dL 30-200 HDL [...] negative Encounters Code Encounter Date Provider Facility CPT-50637 Level 3 Est. Patient 14:39:00 [employer] Vanessa Hickey MD [facility] CPT-19527 Level 2 Est. Patient 18:43:34 CDT Mima Erazo [facility] CPT-96340 Level 3 Est. Patient 16:22:09 CDT Cherelle Avila [facility] CPT-96139 Level 4 Est. Patient 17:55:14 CDT Mima Erazo [facility] CPT-14721 Level 2 Est. Patient 17:13:21 CDT Alina Castaneda MD PhD [facility] CPT-39690 Level 3 Est. Patient 14:46:15 CDT Vanessa Hickey MD [facility]-45570 Level 3 Est. Patient 09:34:56 CDT Alina Castaneda MD PhD [facility]-29677 Level 3 Est. Patient 21:40:19 CDT Mima Erazo [facility] CPT-83534 Level 3 Est. Patient 09:26:40 CDT Marvel Charles [facility]-09836 Level 3 Est. Patient 12:36:43 CDT Vanessa Hickey MD [facility]-62899 Level 3 Est. Patient 12:57:49 CDT Vanessa Hickey MD [facility]-58066 Level 3 Est. Patient 00:28:25 CDT Alina Castaneda MD [facility]75195 Level 2 Est. Patient 12:52:14 CDT Alina Castaneda MD [facility]60306 Level 3 Est. Patient 11:51:18 [employer] Alina Castaneda MD [facility]-11937 Level 3 Est. Patient 10:09:22 [employer] Alina Castaneda MD [facility]-89032 Level 3 Est. Patient 14:36:26 [employer] Marvel Charles [facility]-45603 Level 3 Est. Patient 13:34:47 [employer] Alina Castaneda MD [facility]-54208 Level 3 Est. Patient 19:52:08 [employer] Alina Castaneda MD [facility]-02689 Level 3 Est. Patient 10:01:51 [employer] Marvel Charles [facility]-67455 Level 3 Est. Patient 21:54:06 CDT Vanessa Hickey MD [facility]-98226 Level 3 Est. Patient 08:54:46 CDT Alina Castaneda MD [facility]57115 Level 3 Est. Patient 09:32:11 CDT Marvel Charles [facility]-93776 Level 3 Est. Patient 12:02:49 CDT Alina Castaneda MD [facility]-35931 Level 3 Est. Patient 19:17:33 CDT Alina Castaneda MD [facility]-91902 Level 3 Est. Patient 13:19:10 CDT Marvel Thurstonestela [facility]-34114 Level 3 Est. Patient 08:20:05 CDT Alina Castaneda MD [facility]-59821 Level 3 Est. Patient 15:17:18 CDT Alina Castaneda MD [facility]-16467 Level 3 Est. Patient 14:25:36 [employer] Marvel Charles [facility]-63377 Level 3 Est. Patient 10:09:15 [employer] Marvel Charles [facility]-30078 Level 3 Est. Patient 21:28:43 CDT Alina Castaneda MD [facility]-23376 Level 3 Est. Patient 15:20:11 CDT Marvel Gurdeepajayestela [facility]-91114 Level 4 Est. Patient 19:08:12 CDT Alnia Castaneda MD [facility]-84841 Level 3 Est. Patient 15:06:39 CDT Marvel Araceli [facility]-62373 Level 4 Est. Patient 17:48:15 CDT Alina Castaneda MD [facility]-32735 Level 3 Est. Patient 14:53:49 CDT Alina Castaneda MD [facility]61881 Level 3 Est. Patient 09:35:16 CDT Alina Castaneda MD [facility]-98559 Level 3 Est. Patient 12:23:22 CDT Alina Castaneda MD [facility]-61514 Level 3 Est. Patient 16:19:15 CDT Alina Castaneda MD [facility]-58274 Level 3 Est. Patient 21:39:56 [employer] Alina Castaneda MD [facility]-33430 Level 4 Est. Patient 14:12:56 [employer] Alina Castaneda MD [facility]83193 Level 2 Est. Patient 15:34:57 [employer] Alina Castaneda MD [facility]51572 Level 3 Est. Patient 12:17:04 [employer] Alina Castaneda MD [facility]22314 Level 3 Est. Patient 09:18:18 [employer] [facility]-92665 Level 2 Est. Patient 21:50:24 CDT Alina Castaneda MD [facility]-44207 Level 3 Est. Patient 09:17:28 CDT [facility]-02418 Level 4 Est. Patient 18:54:02 CDT Alina Castaneda MD [facility]-43251 Level 3 Est. Patient 10:47:10 CDT Alina Castaneda MD [facility]-62726 Level 3 Est. Patient 09:22:20 CDT [facility]-96078 Level 3 Est. Patient 16:39:43 CDT [facility]-86977 Level 3 Est. Patient 16:05:16 CDT Alina Castaneda MD [facility]78869 Level 3 Est. Patient 00:29:15 CDT Alina Castaneda MD PhD [facility] CPT-66885 Level 3 Est. Patient 10:49:22 [employer] Marvel Thurstonestela [facility] CPT-51823 Level 3 Est. Patient 21:30:19 [employer] Alina Castaneda MD PhD [facility] CPT-22604 Level 4 Est. Patient 17:04:11 [employer] [place] [facility] CPT-10605 Level 3 Est. Patient 15:34:11 [employer] [facility]60946 Level 2 Est. Patient 12:51:58 [employer] Alina Castaneda MD [facility] CPT-49370 Level 3 Est. Patient 13:20:01 [employer] Alina Castaneda MD PhD [facility] CPT-18566 Level 3 Est. Patient 09:23:35 CDT Alina Castaneda MD PhD [facility] Procedures Code Procedure Name Date Entry Date Standard Description CPT-70928 Bladder Scan 14:39:01 [employer] CPT-TCMM Transitional Care Mgmt-Moderate 10:30:19 [employer] CPT-60283 Bladder Scan 12:36:44 CDT CPT-40128 Bladder Scan 21:54:06 CDT CPT-G0008 Administration of Influenza Virus Vaccine 13:05:26 CDT CPT-47169 Fluzone Quadrivalent Intramuscular Suspension 0.5 ML 13: 05:26 CDT CPT-66282 Administration single or combination vaccine inc oral 11 :49:51 CDT CPT-69744 Pneumovax 11:49:51 CDT CPT-24355 Ribs unilateral 2V 12:37:22 [employer] CPT-90488 Chest 2V Frontal and Lat 17:15:26 CDT CPT-78061 Abx/Therapy Injection 18:54:02 CDT CPT-J0696 Rocephin 1000 mg (Ceftriaxone) 16:00:32 CDT CPT-95768 Chest 2V Frontal and Lat 15:26:45 CDT CPT-57839 Chest 2V Frontal and Lat 10:23:27 CDT CPT-86009 Venipuncture Draw Fee 10:11:00 CDT CPT-82687 Administration single or combination vaccine inc oral 11 :56:38 CDT CPT-03595 Influenza split virus > age 3 11:56:38 CDT CPT-88329 Venipuncture Draw Fee 08:49:54 [employer] CPT-64748 EKG Trac and Interp 17:54:19 [employer]
--- OUTSIDE RECORDS SUMMARY | 2018-07-02 13:30 | XMS REPORT | Clinical Summary ---
Author Author Admin, TERELL Organization [facility] Address Unknown Phone Unavailable Allergies, Adverse Reactions, [...] positional vertigo 386.11 Active Mima Erazo INSURANCE PRODUCER Benign paroxysmal positional vertigo Vertigo, benign paroxysmal position 386.11 Inactive Mima Erazo INSURANCE PRODUCER Benign paroxysmal positional vertigo High-risk sexual behavior V69.2 Active Alina Castaneda MD PhD High-risk sexual behavior Erectile dysfunction 302.72 Active Alina Castaneda MD PhD Psychosexual dysfunction with inhibited sexual excitement Constipation 564.00 Active Alina Castaneda MD PhD Constipation, unspecified Skin lesion 709.9 Active Alina Castaneda MD PhD Unspecified disorder of skin and subcutaneous tissue Malaise and fatigue 780.79 Active Cherelle Speaks INSURANCE PRODUCER Other malaise and fatigue Diarrhea 787.91 Active Cherelle Speaks INSURANCE PRODUCER Diarrhea PHARYNGITIS 462 Active Cherelle Speaks INSURANCE PRODUCER Acute pharyngitis Colitis 558.9 Active Mima Erazo INSURANCE PRODUCER Other and unspecified noninfectious gastroenteritis and colitis Chronic pain - on daily narcotics 338.29 Active Mason Loredo MD Other chronic pain Nocturia Active Vanessa Hickey MD Nocturia Symptom, polydipsia 783.5 Active Vanessa Hickey MD Polydipsia WOUND, OPEN, NOSE ICD-873.20 Inactive Alina Castaneda [...] Inactive Marvel 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 GLUCOSE BLOOD 88989315758 Active Marvel MARROQUIN Active VITAMIN D 2000 UNIT ORAL CAPS Take one by mouth daily CHOLECALCIFEROL 69157404038 Active Mima Erazo APRN Active LATUDA 60 MG ORAL TABS Take one by mouth daily LURASIDONE HCL 61218561317 No Longer Active Mima Yokum INSURANCE PRODUCER Active HUMALOG KWIKPEN 100 UNIT/ML SC SOPN sliding scale if needed INSULIN LISPRO (HUMAN) 79633688474 Active Miamcecily Erazo INSURANCE PRODUCER Active TRAZODONE HCL 100 MG TABS 1 every night to prevent headaches TRAZODONE HCL 71932037828 Active Gabrielle Madl [employer] Active LATUDA 60 MG ORAL TABS 1 tab daily LURASIDONE HCL 89586769102 Active Gabrielle Madl [employer] Active CLONAZEPAM 1 MG TABS 1 pill by mouth three times daily CLONAZEPAM 08482241900 Active Gabrielle Madl [employer] Active [facility] MILK OF MAGNESIA 400 MG/5ML ORAL SUSP 30ml by mouth bid prn MAGNESIUM HYDROXIDE 71282254750 Active Mason Loredo MD Active TYLENOL 8 HOUR 650 MG ORAL CR-TABS 1 tab QID prn ACETAMINOPHEN 32203365303 Active Mason Loredo MD Active MYLANTA GAS RELIEF MAXIMUM STR 125 MG ORAL CAPS 30cc every 4 hours prn 12/01 SIMETHICONE 14648910642 Active Mason Loredo MD Active IMODIUM A-D 2 MG ORAL TABS 1 tab QID as needed LOPERAMIDE HCL 88553789649 Active Mason Loredo MD Active FLUVOXAMINE MALEATE 50 MG ORAL TABS 1 tab by mouth daily FLUVOXAMINE MALEATE 25545438568 Active Mason Loredo MD Active TRAVATAN Z 0.004 % SOLN 1 gtt each eye daily TRAVOPROST 64369900727 No Longer Active Mason Loredo MD Active LISINOPRIL 20 MG TABS 1 BID LISINOPRIL 07561757675 No Longer Active Mason Loredo MD Active LEVEMIR FLEXTOUCH 100 UNIT/ML SC SOPN 60 units SQ each evening, for diabetes INSULIN DETEMIR 26538390801 Active Mima Erazo APRN Active ZOLPIDEM TARTRATE 10 MG TABS take at bedtime ZOLPIDEM TARTRATE 64973089540 No Longer Active Mason Loredo MD Active HYDROCODONE-ACETAMINOPHEN 5-325 MG TABS 2 tabs by mouth three times daily for pain HYDROCODONE-ACETAMINOPHEN 14952233456 No Longer Active Mason Loredo MD Active ZOFRAN 4 MG TABS 1 po q4hr PRN Nausea ONDANSETRON HCL 91823557779 No Longer Active Mason Loredo MD Active LOMOTIL 2.5-0.025 MG ORAL TABS take 1-2 tabs PO after each stool, no more than 8 in 24 hours DIPHENOXYLATE-ATROPINE 81387440507 No Longer Active Mason Loredo MD Active COLACE 100 MG CAPS 1 pill by mouth twice daily, for constipation DOCUSATE SODIUM 95021127589 No Longer Active Mima Erazo APRN Active FLONASE ALLERGY RELIEF 50 MCG/ACT NASAL SUSP One spray each nostril BID x 1 week then daily FLUTICASONE PROPIONATE 81101541692 Active Mima Erazo APRN Active BD PEN NEEDLE MINI U/F 31G X 5 MM MISC 4 a day INSULIN PEN NEEDLE 47414374964 Active Maljohn Ziglari GANG SAW OPERATOR Active AMITIZA 24 MCG ORAL CAPS Take one capsule BID for constipation LUBIPROSTONE 50049939465 Active Mima Erazo APRN Active TRUEPLUS LANCETS 30G MISC 3 a day LANCETS 48504641492 Active Marvel Mackenzieglestela GANG SAW OPERATOR Active TOLTERODINE TARTRATE 2 MG TABS 1 pill twice daily, for bladder TOLTERODINE TARTRATE 65505954054 No Longer Active Vanessa Hickey MD Active AMITIZA 24 MCG ORAL CAPS Take one capsule BID for constipation. LUBIPROSTONE 30553145680 No Longer Active Vanessa Hickey MD Active FLUVOXAMINE MALEATE 100 MG ORAL TABS take one tab every AM et HS, and take 1/ 2 tab at noon FLUVOXAMINE MALEATE 61251638380 Active Grace ROJAS Active METOPROLOL SUCCINATE 100 MG [id number] 1 by mouth daily for blood pressure METOPROLOL SUCCINATE 92519324292 No Longer Active Grace Azam RMA Active METFORMIN HCL ER 500 MG [id number] Take three tablets by mouth everyday METFORMIN HCL 24126475194 No Longer Active Grace Azam RMA Active LOVAZA 1 GM CAPS 4 daily (for triglycerides) OMEGA-3- ACID ETHYL ESTERS 22400967117 No Longer Active Grace Azam RMA Active TRAZODONE HCL 100 MG ORAL TABS 1 tab by mouth for sleep TRAZODONE HCL 34039728012 No Longer Active Grace Azam RMA Active NOVOFINE 32G X 6 MM MISC use one four times per day INSULIN PEN NEEDLE 86067677144 No Longer Active Grace Azam RMA Active BACTROBAN 2 % CREAM Apply to affected area BID for up to 10 days MUPIROCIN CALCIUM 83784254961 No Longer Active Grace Azam RMA Active KEFLEX 500 MG CAP 1 po BID x 7 days CEPHALEXIN 83594645936 No Longer Active Cherelle Avila INSURANCE PRODUCER Active FLUVOXAMINE MALEATE 100 MG TABS Take one (1) tablet by mouth am, 1/2 at noon FLUVOXAMINE MALEATE 47604882789 No Longer Active Mima Erazo APRN Active CORICIDIN HBP CONGESTION/COUGH 10-200 MG ORAL CAPS Take as directed on box as needed for cold/flu symptoms DEXTROMETHORPHAN-GUAIFENESIN 82997956516 Active Cherelle Speaks INSURANCE PRODUCER Active OMEGA-3 300 MG ORAL CAPS 4 caps by mouth daily OMEGA-3 FATTY ACIDS 36570663453 Active Mima Yokum INSURANCE PRODUCER Active FLUVOXAMINE MALEATE 100 MG ORAL TABS Take 1/2 tab at noon FLUVOXAMINE MALEATE 66378378058 No Longer Active Cherelle Speaks INSURANCE PRODUCER Active [facility] LUBRICANT EYE DROPS 0.4-0.3 % OPHTH SOLN POLYETHYL GLYCOL-PROPYL GLYCOL 13569291027 Active Mima Yokum INSURANCE PRODUCER Active MIRALAX POWD 17g by mouth daily, for constipation POLYETHYLENE GLYCOL 3350 56409504663 Active Alina Castaneda MD PhD Active TRUETEST TEST STRP check blood sugars 3x/day GLUCOSE BLOOD 44709583916 Active Maljohn Ziglari GANG SAW OPERATOR Active ACCU-CHEK ROSA UZMA Use device to check blood sugars BLOOD GLUCOSE MONITORING SUPPL 39859925570 No Longer Active Maliheh Ziglari GANG SAW OPERATOR Active ACCU-CHEK ROSA INVITR STRP use strips with device to check blood sugars 3 times daily GLUCOSE BLOOD 71232095515 No Longer Active Maljohn Mackenzieglari GANG SAW OPERATOR Active VERAPAMIL HCL ER 180 MG ORAL CR-TABS 1 pill by mouth twice daily, for migraine prevention VERAPAMIL HCL 54236968720 Active Mima Erazo APRN Active CYCLOBENZAPRINE HCL 10 MG TABS 1 tablet by mouth three times daily, scheduled CYCLOBENZAPRINE HCL 06535920521 No Longer Active Alina Castaneda MD PhD Active HUMALOG 100 UNIT/ML SOLN Take 20 units with breakfast, 10u with lunch and suppetr. INSULIN LISPRO (HUMAN) 87292181779 No Longer Active Alina Castaneda MD PhD Active TRUETEST TEST STRP check sugars 4x/day GLUCOSE BLOOD 34579845635 No Longer Active Alina Castaneda MD PhD Active MORPHINE SULFATE 30 MG TABS 1 pill by mouth twice daily, for pain MORPHINE SULFATE 07077205072 No Longer Active Mason Loredo MD Active ACYCLOVIR 400 MG ORAL TABS 1 pill three times daily x 5 days, for cold sore outbreak ACYCLOVIR 90393184119 No Longer Active Alina Castaneda MD PhD Active PENICILLIN V POTASSIUM 500 MG TABS 1 pill by mouth three times daily PENICILLIN V POTASSIUM 45044843421 No Longer Active Alina Castaneda MD PhD Active UROXATRAL 10 MG [id number]-UGV Take 1 tablet by mouth daily ALFUZOSIN HCL 82337670854 No Longer Active Alina Castaneda MD PhD Active THIOTHIXENE 5 MG CAPS by mouth twice a day THIOTHIXENE 71783417026 No Longer Active Alina Castaneda MD PhD Active ZYPREXA 7.5 MG TABS 1 at HS OLANZAPINE 54437455436 No Longer Active Alina Castaneda MD PhD Active BD INSULIN SYRINGE 28G X 1/2" 1 ML MISC 1 four times per day INSULIN SYRINGE-NEEDLE U-100 16864121540 Active Maliheh Ziglari GANG SAW OPERATOR Active DETROL LA 4 MG [id number] Take 1 tablet by mouth daily TOLTERODINE TARTRATE 14387384199 No Longer Active Alina Castaneda MD PhD Active TERESE CONTOUR TEST STRP monitor blood sugars 3x/day GLUCOSE BLOOD 00973019482 No Longer Active Alina Castaneda MD PhD Active EQL TRUETEST TEST STRP Test blood sugar TID GLUCOSE BLOOD 68365360380 No Longer Active Alina Castaneda MD PhD Active FLUTICASONE PROPIONATE 50 MCG/ACT SUSP 2 sprays each nostril qDay x 30 days FLUTICASONE PROPIONATE 63718124286 No Longer Active Alina Castaneda MD PhD Active IBUPROFEN 200 MG TABS 1 Q 6 hr. PRN IBUPROFEN 04502189847 No Longer Active Alina Castaneda MD PhD Active NIACIN ER 500 MG CR-TABS 4 qHS (for triglycerides) NIACIN 84150878083 No Longer Active Alina Castaneda MD PhD Active ALFUZOSIN HCL ER 10 MG [id number] 1 tablet daily ALFUZOSIN HCL 70490533833 Active Mima Yokum INSURANCE PRODUCER Active SAPHRIS 5 MG SUBL by mouth twice a day ASENAPINE MALEATE 24317067220 No Longer Active [employer] Ziglari GANG SAW OPERATOR Active ACETAMINOPHEN 500 MG TABS 2 Q 6 hr. PRN ACETAMINOPHEN 86868103606 No Longer Active Maliheh Ziglari GANG SAW OPERATOR Active ORPHENADRINE CITRATE ER 100 MG OA16P-QNN 1 every 12 hr. as needed ORPHENADRINE CITRATE 38165646948 No Longer Active Alina Castaneda MD PhD Active NIACIN CR 500 MG CR-TABS 2 qHS NIACIN 05823953103 No Longer Active Alina Castaneda MD PhD Active AMOXICILLIN 500 MG CAPS 2 po BID x 10 days AMOXICILLIN 24162560943 No Longer Active Alina Castaneda MD PhD Active HYDROCODONE-ACETAMINOPHEN 7.5-325 MG TABS 1 four times a day as needed for pain HYDROCODONE-ACETAMINOPHEN 85067790058 No Longer Active Alina Castaneda MD PhD Active DOXEPIN HCL 10 MG CAPS Take 1 tablet by mouth daily DOXEPIN HCL 69704340460 No Longer Active Salina Han A Active NAVANE 10 MG CAPS 1/2 tablet twice a day THIOTHIXENE No Longer Active Salina Han [facility] Active CYCLOBENZAPRINE HCL 10 MG TABS 1/2 tablet by mouth every 8 hours as needed for muscle spasms CYCLOBENZAPRINE HCL 03533435444 No Longer Active Alina Castaneda MD PhD Active BACTROBAN 2 % CREAM apply to ear and nose twice daily MUPIROCIN CALCIUM 53814473306 No Longer Active Alina Castaneda MD PhD Active HYDROCODONE-ACETAMINOPHEN 5-325 MG TABS take one tablet by mouth every four hours as needed for pain HYDROCODONE-ACETAMINOPHEN 98946819749 No Longer Active Alina Castaneda MD PhD Active ZYPREXA 5 MG TABS take one tablet by mouth every evening OLANZAPINE 21077627157 No Longer Active Alina Castaneda MD PhD Active ALBUTEROL SULFATE 0.083 % NEBU SOLN one vial per nebulizer TID and PRN cough/ soa ALBUTEROL SULFATE 41030823391 No Longer Active Alina Castaneda MD PhD Active GUAIFENESIN 600 MG [id number] 1 tablet by mouth twice daily if needed for cough GUAIFENESIN 39146194831 No Longer Active Marvel MARROQUIN Active AZITHROMYCIN 500 MG SOLR 1 po q day AZITHROMYCIN 72310536024 No Longer Active Alina Castaneda MD PhD Active PROMETHAZINE-CODEINE 6.25-10 MG/5ML SYRP 1 tsp po q 6 hours prn cough PROMETHAZINE-CODEINE 36858650434 No Longer Active Alina Castaneda MD PhD Active CEFDINIR 300 MG CAPS by mouth twice a day CEFDINIR 63540050595 No Longer Active Alina Castaneda MD PhD Active METFORMIN HCL 500 MG LL54M-TRD Take 3 tablets by mouth everyday METFORMIN HCL 50961115161 No Longer Active Alina Castaneda MD PhD Active LEVEMIR 100 UNIT/ML SOLN 90 units SQ qHS INSULIN DETEMIR 68556513265 No Longer Active Marvel MARROQUIN Active TOPROL XL 100 MG [id number]-[id number] 1 @ HS METOPROLOL SUCCINATE 74573266646 No Longer Active Marvel MARROQUIN Active ALLOPURINOL 300 MG TABS Take one by mouth daily ALLOPURINOL 53420395652 Active Mima Erazo INSURANCE PRODUCER Active ZYPREXA 10 MG TABS Take one by mouth daily OLANZAPINE 42895073655 No Longer Active Alina Castaneda MD PhD Active NOVOLOG 100 UNIT/ML SOLN 40 units with every meal INSULIN ASPART 77107581810 No Longer Active Alina Castaneda MD PhD Active VERAPAMIL HCL CR 120 MG TAB CR 1 qPM VERAPAMIL HCL 50895360998 No Longer Active Salina ROBBINS Active ZYPREXA 15 MG TABS Take 1 tablet by mouth daily OLANZAPINE 37322808637 No Longer Active Marvel MARROQUIN Active ALBUTEROL SULFATE (2.5 MG/3ML) 0.083% NEBU 1 neb tid and prn cough ALBUTEROL SULFATE 94324158830 No Longer Active Alina Castaneda MD PhD Active LANTUS 100 UNIT/ML SOLN 60 units sq q hs INSULIN GLARGINE 71638513067 No Longer Active CRYSTAL Suarez Active ALBUTEROL SULFATE (2.5 MG/3ML) 0.083% NEBU 1 neb tid and prn cough ALBUTEROL SULFATE (2.5 MG/3ML) 0.083% NEBU 982760 ALBUTEROL SULFATE Inactive ZYPREXA 15 MG TABS Take 1 tablet by mouth daily ZYPREXA 15 MG TABS 041222 OLANZAPINE Inactive VERAPAMIL HCL CR 120 MG TAB CR 1 qPM VERAPAMIL HCL CR 120 MG TAB CR VERAPAMIL HCL Inactive ZYPREXA 10 MG TABS Take one by mouth daily ZYPREXA 10 MG TABS 448365 OLANZAPINE Inactive TOPROL XL 100 MG [id number] 1 @ HS TOPROL XL 100 MG WS90M-YAX METOPROLOL SUCCINATE Inactive LEVEMIR 100 UNIT/ML SOLN 90 units SQ qHS LEVEMIR 100 UNIT/ML SOLN INSULIN DETEMIR Inactive PROMETHAZINE-CODEINE 6.25-10 MG/5ML SYRP 1 tsp po q 6 hours prn cough PROMETHAZINE-CODEINE 6.25-10 MG/5ML SYRP 530377 PROMETHAZINE- CODEINE Inactive GUAIFENESIN 600 MG HB61Q-IYI 1 tablet by mouth twice daily if needed for cough GUAIFENESIN 600 MG SD12J-DMX GUAIFENESIN Inactive ALBUTEROL SULFATE 0.083 % NEBU SOLN one vial per nebulizer TID and PRN cough/ soa ALBUTEROL SULFATE 0.083 % NEBU SOLN 851779 ALBUTEROL SULFATE Inactive ZYPREXA 5 MG TABS take one tablet by mouth every evening ZYPREXA 5 MG TABS 718920 OLANZAPINE Inactive HYDROCODONE-ACETAMINOPHEN 5-325 MG TABS take one tablet by mouth every four hours as needed for pain HYDROCODONE-ACETAMINOPHEN 5-325 MG TABS 637154 HYDROCODONE-ACETAMINOPHEN Inactive BACTROBAN 2 % CREAM apply to ear and nose twice daily BACTROBAN 2 % CREAM 907298 MUPIROCIN CALCIUM Inactive CYCLOBENZAPRINE HCL 10 MG TABS 1/2 tablet by mouth every 8 hours as needed for muscle spasms CYCLOBENZAPRINE HCL 10 MG TABS 491629 CYCLOBENZAPRINE HCL Inactive NAVANE 10 MG CAPS 1/2 tablet twice a day NAVANE 10 MG CAPS THIOTHIXENE Inactive DOXEPIN HCL 10 MG CAPS Take 1 tablet by mouth daily DOXEPIN HCL 10 MG CAPS 7676457 DOXEPIN HCL Inactive HYDROCODONE-ACETAMINOPHEN 7.5-325 MG TABS 1 four times a day as needed for pain HYDROCODONE-ACETAMINOPHEN 7.5-325 MG TABS 558750 HYDROCODONE-ACETAMINOPHEN Inactive NIACIN CR 500 MG CR-TABS 2 qHS NIACIN CR 500 MG CR- TABS NIACIN Inactive ORPHENADRINE CITRATE ER 100 MG OC79K-EDS 1 every 12 hr. as needed ORPHENADRINE CITRATE ER 100 MG [id number]-SJT ORPHENADRINE CITRATE Inactive ACETAMINOPHEN 500 MG TABS 2 Q 6 hr. PRN ACETAMINOPHEN 500 MG TABS 933766 ACETAMINOPHEN Inactive SAPHRIS 5 MG SUBL by mouth twice a day SAPHRIS 5 MG SUBL ASENAPINE MALEATE Inactive NIACIN ER 500 MG CR-TABS 4 qHS (for triglycerides) NIACIN ER 500 MG CR-TABS NIACIN Inactive IBUPROFEN 200 MG TABS 1 Q 6 hr. PRN IBUPROFEN 200 MG TABS 405046 IBUPROFEN Inactive FLUTICASONE PROPIONATE 50 MCG/ACT SUSP 2 sprays each nostril qDay x 30 days FLUTICASONE PROPIONATE 50 MCG/ACT SUSP 6375205 FLUTICASONE PROPIONATE Inactive EQL TRUETEST TEST STRP Test blood sugar TID EQL TRUETEST TEST STRP GLUCOSE BLOOD Inactive TERESE CONTOUR TEST STRP monitor blood sugars 3x/day TERESE CONTOUR TEST STRP GLUCOSE BLOOD Inactive DETROL LA 4 MG [id number] Take 1 tablet by mouth daily DETROL LA 4 MG OC54C-HBZ TOLTERODINE TARTRATE Inactive ZYPREXA 7.5 MG TABS 1 at HS ZYPREXA 7.5 MG TABS 932707 OLANZAPINE Inactive THIOTHIXENE 5 MG CAPS by mouth twice a day THIOTHIXENE 5 MG CAPS 825539 THIOTHIXENE Inactive UROXATRAL 10 MG UW27P-ELV Take 1 tablet by mouth daily UROXATRAL 10 MG FX82D-VNH ALFUZOSIN HCL Inactive ACYCLOVIR 400 MG ORAL TABS 1 pill three times daily x 5 days, for cold sore outbreak ACYCLOVIR 400 MG ORAL TABS 903466 ACYCLOVIR Inactive TRUETEST TEST STRP check sugars 4x/day TRUETEST TEST STRP GLUCOSE BLOOD Inactive HUMALOG 100 UNIT/ML SOLN Take 20 units with breakfast, 10u with lunch and suppetr. HUMALOG 100 UNIT/ML SOLN INSULIN LISPRO ( HUMAN) Inactive CYCLOBENZAPRINE HCL 10 MG TABS 1 tablet by mouth three times daily, scheduled CYCLOBENZAPRINE HCL 10 MG TABS 225561 CYCLOBENZAPRINE HCL Inactive ACCU-CHEK ROSA INVITR STRP use strips with device to check blood sugars 3 times daily ACCU-CHEK ROSA INVITR STRP GLUCOSE BLOOD Inactive ACCU-CHEK ROSA UZMA Use device to check blood sugars ACCU-CHEK ROSA UZMA BLOOD GLUCOSE MONITORING SUPPL Inactive FLUVOXAMINE MALEATE 100 MG ORAL TABS Take 1/2 tab at noon FLUVOXAMINE MALEATE 100 MG ORAL TABS 959392 FLUVOXAMINE MALEATE Inactive FLUVOXAMINE MALEATE 100 MG TABS Take one (1) tablet by mouth am, 1/2 at noon FLUVOXAMINE MALEATE 100 MG TABS 047976 FLUVOXAMINE MALEATE Inactive BACTROBAN 2 % CREAM Apply to affected area BID for up to 10 days BACTROBAN 2 % CREAM 820354 MUPIROCIN CALCIUM Inactive NOVOFINE 32G X 6 MM MISC use one four times per day NOVOFINE 32G X 6 MM MISC INSULIN PEN NEEDLE Inactive TRAZODONE HCL 100 MG ORAL TABS 1 tab by mouth for sleep TRAZODONE HCL 100 MG ORAL TABS 777389 TRAZODONE HCL Inactive LOVAZA 1 GM CAPS 4 daily (for triglycerides) LOVAZA 1 GM CAPS 622003 COQKW-2-KVQU ETHYL ESTERS Inactive METFORMIN HCL ER 500 MG HF08D-SCM Take three tablets by mouth everyday METFORMIN HCL ER 500 MG VV14X-VNK METFORMIN HCL Inactive METOPROLOL SUCCINATE 100 MG TX47L-AKF 1 by mouth daily for blood pressure METOPROLOL SUCCINATE 100 MG IS37M-KUC METOPROLOL SUCCINATE Inactive AMITIZA 24 MCG ORAL CAPS Take one capsule BID for constipation. AMITIZA 24 MCG ORAL CAPS LUBIPROSTONE Inactive TOLTERODINE TARTRATE 2 MG TABS 1 pill twice daily, for bladder TOLTERODINE TARTRATE 2 MG TABS 902901 TOLTERODINE TARTRATE Inactive COLACE 100 MG CAPS 1 pill by mouth twice daily, for constipation COLACE 100 MG CAPS 8665935 DOCUSATE SODIUM Inactive LOMOTIL 2.5-0.025 MG ORAL TABS take 1-2 tabs PO after each stool, no more than 8 in 24 hours LOMOTIL 2.5-0.025 MG ORAL TABS 7530958 DIPHENOXYLATE-ATROPINE Inactive ZOFRAN 4 MG TABS 1 po q4hr PRN Nausea ZOFRAN 4 MG TABS 662278 ONDANSETRON HCL Inactive HYDROCODONE-ACETAMINOPHEN 5-325 MG TABS 2 tabs by mouth three times daily for pain HYDROCODONE-ACETAMINOPHEN 5-325 MG TABS 630514 HYDROCODONE-ACETAMINOPHEN Inactive ZOLPIDEM TARTRATE 10 MG TABS take at bedtime ZOLPIDEM TARTRATE 10 MG TABS 937917 ZOLPIDEM TARTRATE Inactive LISINOPRIL 20 MG TABS 1 BID LISINOPRIL 20 MG TABS 429192 LISINOPRIL Inactive TRAVATAN Z 0.004 % SOLN 1 gtt each eye daily TRAVATAN Z 0.004 % SOLN TRAVOPROST Inactive LATUDA 60 MG ORAL TABS Take one by mouth daily LATUDA 60 MG ORAL TABS LURASIDONE HCL Inactive CEFDINIR 300 MG CAPS by mouth twice a day CEFDINIR 300 MG CAPS 107814 CEFDINIR Inactive AZITHROMYCIN 500 MG SOLR 1 po q day AZITHROMYCIN 500 MG SOLR 38551107987 AZITHROMYCIN Inactive AMOXICILLIN 500 MG CAPS 2 po BID x 10 days AMOXICILLIN 500 MG CAPS 134245 AMOXICILLIN Inactive PENICILLIN V POTASSIUM 500 MG TABS 1 pill by mouth three times daily PENICILLIN V POTASSIUM 500 MG TABS 588995 PENICILLIN V POTASSIUM Inactive KEFLEX 500 MG CAP 1 po BID x 7 days KEFLEX 500 MG CAP 092191 CEPHALEXIN Inactive Immunizations Vaccine Administration Date Value [...] Fluvirin, Fluarix, Agriflu(>=18 yo)) Fluzone (>3 yrs.) [SVG007] Influenza, seasonal, injectable pneumococcal immunization administered Pneumovax 23 [CVX33] pneumococcal polysaccharide vaccine, 23 valent Vital Signs Date Name Value Unit Range Description blood pressure, diastolic - 8462-4 72 mm[Hg] BP garcia blood pressure, systolic - 8480-6 131 mm[Hg] BP sys pulse rate E&M - 8867-4 81 /min Heart rate temperature E&M 97.8 [degF] Body temperature weight E&M - 3141-9 208.5 [lb_av] Weight Measured blood pressure, diastolic - [...] E&M - 3141-9 236.5 [lb_av] Weight Measured Diagnostic Results Date Name Value Unit Range Description Lab Report: CBC W/DIFF, Basic Metabolic Panel - Chemistry sodium, serum 138 mmol/L 562-245 8465/11/11 potassium, serum 4.7 mmol/L 3.5-5.2 chloride, serum [...] Acid - Chemistry cholesterol, serum 187 mg/dL 846-253 1913/06/14 triglyceride, serum, fasting 246 mg/dL 30-200 HDL [...] W/RATIO - Lab microalbumin, urine 10 0-19 Office Visit: 1 month follow up retention [...] protein, urine, semiquantitative (dipstick) negative Office Visit: Weak stream - Chemistry protein, total urine random negative mg/dL RBC, urine, dipstick negative Office Visit: Weak stream - Urinalysis ketones, urine, by test strip negative bilirubin, urine negative glucose, urine, semiquantitative negative urine color yellow appearance, urine clear leukocyte esterase, urine, by dipstick negative nitrite, urine, semiquantitative negative urobilinogen, urine, semiquantitative (dipstick) negative protein, urine, semiquantitative (dipstick) negative pH, urine, semiquantitative 6 specific gravity, urine 1.005 urinalysis, routine Clean Catch culture status No Encounters Code Encounter Date Provider Facility CPT-05079 Level 3 Est. Patient 16:52:51 CDT Vanessa Hickey MD [facility] CPT-42046 Level 3 Est. Patient 17:40:16 CDT Mima Erazo [facility] CPT-76256 Level 3 Est. Patient 14:34:52 CDT Vanessa Hickey MD [facility] CPT-03816 Level 3 Est. Patient 16:27:51 CDT Mima Erazo [facility]-77898 Level 3 Est. Patient 14:39:00 BAKERY DEMONSTRATOR Vanessa Hickey MD [facility]-29719 Level 2 Est. Patient 18:43:34 CDT Mima Erazo [facility]-82599 Level 3 Est. Patient 16:22:09 CDT Cherelle Avila [facility]-38504 Level 4 Est. Patient 17:55:14 CDT Mima Erazo [facility]-07106 Level 2 Est. Patient 17:13:21 CDT Alina Castaneda MD [facility]35805 Level 3 Est. Patient 14:46:15 CDT Vanessa Hickey MD [facility]-19394 Level 3 Est. Patient 09:34:56 CDT Alina Castaneda MD [facility]-30012 Level 3 Est. Patient 21:40:19 CDT Mima Erazo [facility] CPT-46450 Level 3 Est. Patient 09:26:40 CDT Marvel [facility]-36199 Level 3 Est. Patient 12:36:43 CDT Vanessa Hickey MD [facility]-21902 Level 3 Est. Patient 12:57:49 CDT Vanessa Hickey MD [facility]-07763 Level 3 Est. Patient 00:28:25 CDT Alina Castaneda MD [facility]10670 Level 2 Est. Patient 12:52:14 CDT Alina Castaneda MD [facility]61963 Level 3 Est. Patient 11:51:18 BAKERY DEMONSTRATOR Alina Castaneda MD [facility]08172 Level 3 Est. Patient 10:09:22 BAKERY DEMONSTRATOR Alina Castaneda MD PhD [facility] CPT-92773 Level 3 Est. Patient 14:36:26 BAKERY DEMONSTRATOR Marvel Araceli [facility]-23500 Level 3 Est. Patient 13:34:47 BAKERY DEMONSTRATOR Alina Castaneda MD [facility]-02844 Level 3 Est. Patient 19:52:08 BAKERY DEMONSTRATOR Alina Castaneda MD [facility]38235 Level 3 Est. Patient 10:01:51 BAKERY DEMONSTRATOR Marvel Gurdeepanca [facility]-29969 Level 3 Est. Patient 21:54:06 CDT Vanessa Hickey MD [facility]-59537 Level 3 Est. Patient 08:54:46 CDT Alina Castaneda MD [facility]38133 Level 3 Est. Patient 09:32:11 CDT Marvel Araceli [facility]-57030 Level 3 Est. Patient 12:02:49 CDT Alina Castaneda MD [facility]11693 Level 3 Est. Patient 19:17:33 CDT Alina Castaneda MD [facility]28344 Level 3 Est. Patient 13:19:10 CDT Brooksjohn Charles [facility]-44733 Level 3 Est. Patient 08:20:05 CDT Alina Castaneda MD [facility]89638 Level 3 Est. Patient 15:17:18 CDT Alina Castaneda MD [facility]12150 Level 3 Est. Patient 14:25:36 BAKERY DEMONSTRATOR Marvel Araceli [facility]-33505 Level 3 Est. Patient 10:09:15 BAKERY DEMONSTRATOR Marvel Araceli [facility]-49916 Level 3 Est. Patient 21:28:43 CDT Alina Castaneda MD [facility]-41683 Level 3 Est. Patient 15:20:11 [facility]-00821 Level 4 Est. Patient 19:08:12 CDT Alina Castaneda MD [facility]-87005 Level 3 Est. Patient 15:06:39 CDT Marvel Charles [facility] CPT-44346 Level 4 Est. Patient 17:48:15 CDT Alina Castaneda MD [facility]-33135 Level 3 Est. Patient 14:53:49 CDT Alina Castaneda MD [facility]-97490 Level 3 Est. Patient 09:35:16 CDT Alina Castaneda MD [facility]-31346 Level 3 Est. Patient 12:23:22 CDT Alina Castaneda MD [facility]-44700 Level 3 Est. Patient 16:19:15 CDT Alina Castaneda MD [facility]-77404 Level 3 Est. Patient 21:39:56 BAKERY DEMONSTRATOR Alina Castaneda MD [facility]-83607 Level 4 Est. Patient 14:12:56 BAKERY DEMONSTRATOR Alina Castaneda MD [facility]-63422 Level 2 Est. Patient 15:34:57 BAKERY DEMONSTRATOR Alina Castaneda MD [facility]-48575 Level 3 Est. Patient 12:17:04 BAKERY DEMONSTRATOR Alina Castaneda MD [facility]-88939 Level 3 Est. Patient 09:18:18 BAKERY DEMONSTRATOR Marvel Charles [facility]-44604 Level 2 Est. Patient 21:50:24 CDT Alina Castaneda MD [facility]-82874 Level 3 Est. Patient 09:17:28 CDT Marvel Charles [facility]-65232 Level 4 Est. Patient 18:54:02 CDT Alina Castaneda MD [facility]-32958 Level 3 Est. Patient 10:47:10 CDT Alina Castaneda MD [facility]-01280 Level 3 Est. Patient 09:22:20 CDT Marvel Charles [facility]-28824 Level 3 Est. Patient 16:39:43 CDT Marvel Charles [facility]-64296 Level 3 Est. Patient 16:05:16 CDT Alina Castaneda MD [facility]-28529 Level 3 Est. Patient 00:29:15 CDT Alina Castaneda MD [facility]-46132 Level 3 Est. Patient 10:49:22 BAKERY DEMONSTRATOR Marvel Charles [facility]-31044 Level 3 Est. Patient 21:30:19 BAKERY DEMONSTRATOR Alina Castaneda MD [facility]-00977 Level 4 Est. Patient 17:04:11 BAKERY DEMONSTRATOR Marvel Charles [facility]-19862 Level 3 Est. Patient 15:34:11 BAKERY DEMONSTRATOR Marvel Charles [facility]-56684 Level 2 Est. Patient 12:51:58 BAKERY DEMONSTRATOR Alina Castaneda MD [facility]-01137 Level 3 Est. Patient 13:20:01 BAKERY DEMONSTRATOR Alina Castaneda MD [facility]-73507 Level 3 Est. Patient 09:23:35 CDT Alina Castaneda MD PhD [facility] Procedures Code Procedure Name Date Entry Date Standard Description CPT-TCMM Transitional Care Mgmt-Moderate 10:25:31 CDT CPT-69565 Bladder Scan 14:34:53 CDT CPT-21773 Bladder Scan 14:39:01 BAKERY DEMONSTRATOR CPT-TCMM Transitional Care Mgmt-Moderate 10:30:19 BAKERY DEMONSTRATOR CPT-63586 Bladder Scan 12:36:44 CDT CPT-07000 Bladder Scan 21:54:06 CDT CPT-G0008 Administration of Influenza Virus Vaccine 13:05:26 CDT CPT-08455 Fluzone Quadrivalent Intramuscular Suspension 0.5 ML 13: 05:26 CDT CPT-18471 Administration single or combination vaccine inc oral 11 :49:51 CDT CPT-95866 Pneumovax 11:49:51 CDT CPT-38531 Ribs unilateral 2V 12:37:22 BAKERY DEMONSTRATOR CPT-34857 Chest 2V Frontal and Lat 17:15:26 CDT CPT-01314 Abx/Therapy Injection 18:54:02 CDT CPT-J0696 Rocephin 1000 mg (Ceftriaxone) 16:00:32 CDT CPT-51079 Chest 2V Frontal and Lat 15:26:45 CDT CPT-28945 Chest 2V Frontal and Lat 10:23:27 CDT CPT-14496 Venipuncture Draw Fee 10:11:00 CDT CPT-24819 Administration single or combination vaccine inc oral 11 :56:38 CDT CPT-45412 Influenza split virus > age 3 11:56:38 CDT CPT-24210 Venipuncture Draw Fee 08:49:54 BAKERY DEMONSTRATOR CPT-13432 EKG Trac and Interp 17:54:19 BAKERY DEMONSTRATOR
--- OUTSIDE RECORDS SUMMARY | 2018-07-02 13:31 | XMS REPORT | Clinical Summary ---
Author Author Admin, TERELL Organization [facility] Address Unknown Phone Unavailable Allergies, Adverse Reactions, 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 Erazo [employer] Benign paroxysmal positional vertigo Vertigo, benign paroxysmal position 386.11 Inactive Mima Erazo [employer] Benign paroxysmal positional vertigo High-risk sexual behavior V69.2 Active Alina Castaneda MD PhD High-risk sexual behavior Erectile dysfunction 302.72 Active Alina Castaneda MD PhD Psychosexual dysfunction with inhibited sexual excitement Constipation 564.00 Active Alina Castaneda MD PhD Constipation, unspecified Skin lesion 709.9 Active Alina Castaneda MD PhD Unspecified disorder of skin and subcutaneous tissue Malaise and fatigue 780.79 Active Cherelle Speaks [employer] Other malaise and fatigue Diarrhea 787.91 Active Cherelle Speaks [employer] Diarrhea PHARYNGITIS 462 Active Cherelle Speaks [employer] Acute pharyngitis Colitis 558.9 Active Mima Erazo [employer] Other and unspecified noninfectious gastroenteritis and colitis [...] Generic Name NDC Status Provider Patient Instruction EFFEXOR XR 37.5 MG ORAL [id number] Take one by mouth daily VENLAFAXINE HCL 41158143228 Active Mima Vadimum ALBAN Active TRAVATAN Z 0.004 % OPHTH SOLN 1 drop each eye daily TRAVOPROST 00448024841 Active Mima Yokum [employer] Active FLUVOXAMINE MALEATE 50 MG ORAL TABS 1 tab by mouth daily FLUVOXAMINE MALEATE 29190226751 No Longer Active Mima Vadimum ALBAN Active MORPHINE SULFATE ER 30 MG ORAL CR-TABS Take one capsule BID MORPHINE SULFATE 63055438523 Active Mima Yokum [employer] Active TRUEPLUS LANCETS 30G MISC 3x a day LANCETS 50391637956 Active Marvel Charles STOREROOM SUPERVISOR Active TRUE METRIX METER W/DEVICE KIT Check blood sugars 3x/day BLOOD GLUCOSE MONITORING SUPPL 47788177655 Active Marvel Mackenzieglari STOREROOM SUPERVISOR Active TRUE METRIX BLOOD GLUCOSE TEST INVITR STRP Check blood sugars 3x/day. GLUCOSE BLOOD 31504443630 Active Marvel Mackenzieglari STOREROOM SUPERVISOR Active VITAMIN D 2000 UNIT ORAL CAPS Take one by mouth daily CHOLECALCIFEROL 99443439649 Active Mima Yokum [employer] Active LATUDA 60 MG ORAL TABS Take one by mouth daily LURASIDONE HCL 58548944836 No Longer Active Mima Yokum [employer] Active HUMALOG KWIKPEN 100 UNIT/ML SC SOPN sliding scale if needed INSULIN LISPRO (HUMAN) 16685189156 Active Mima Yokum [employer] Active TRAZODONE HCL 100 MG TABS 1 every night to prevent headaches TRAZODONE HCL 04864098345 Active Gabrielle Madl LOAD MANAGER Active LATUDA 60 MG ORAL TABS 1 tab daily LURASIDONE HCL 21753412581 Active Gabrielle Madl LOAD MANAGER Active CLONAZEPAM 1 MG TABS 1 pill by mouth three times daily CLONAZEPAM 73042124493 Active Gabrielle Madl LOAD MANAGER Active [facility] MILK OF MAGNESIA 400 MG/5ML ORAL SUSP 30ml by mouth bid prn MAGNESIUM HYDROXIDE 56842983786 Active Mason Loredo MD Active TYLENOL 8 HOUR 650 MG ORAL CR-TABS 1 tab QID prn ACETAMINOPHEN 28294293864 Active Mason Loredo MD Active MYLANTA GAS RELIEF MAXIMUM STR 125 MG ORAL CAPS 30cc every 4 hours prn 12/01 SIMETHICONE 61979195737 Active Mason Loredo MD Active IMODIUM A-D 2 MG ORAL TABS 1 tab QID as needed LOPERAMIDE HCL 82064236431 Active Mason Loredo MD Active TRAVATAN Z 0.004 % SOLN 1 gtt each eye daily TRAVOPROST 90531572525 No Longer Active Mason Loredo MD Active LISINOPRIL 20 MG TABS 1 BID LISINOPRIL 17683372910 No Longer Active Mason Loredo MD Active LEVEMIR FLEXTOUCH 100 UNIT/ML SC SOPN 60 units SQ each evening, for diabetes INSULIN DETEMIR 84054746031 Active Mima Erazo APRN Active ZOLPIDEM TARTRATE 10 MG TABS take at bedtime ZOLPIDEM TARTRATE 09319276274 No Longer Active Mason Loredo MD Active HYDROCODONE-ACETAMINOPHEN 5-325 MG TABS 2 tabs by mouth three times daily for pain HYDROCODONE-ACETAMINOPHEN 74558463183 No Longer Active Mason Loredo MD Active ZOFRAN 4 MG TABS 1 po q4hr PRN Nausea ONDANSETRON HCL 08076327995 No Longer Active Mason Loredo MD Active LOMOTIL 2.5-0.025 MG ORAL TABS take 1-2 tabs PO after each stool, no more than 8 in 24 hours DIPHENOXYLATE-ATROPINE 66446041242 No Longer Active Mason Loredo MD Active COLACE 100 MG CAPS 1 pill by mouth twice daily, for constipation DOCUSATE SODIUM 31938115589 No Longer Active Mima Erazo APRN Active FLONASE ALLERGY RELIEF 50 MCG/ACT NASAL SUSP One spray each nostril BID x 1 week then daily FLUTICASONE PROPIONATE 74555042464 Active Mima Erazo APRN Active BD PEN NEEDLE MINI U/F 31G X 5 MM MISC 4 a day INSULIN PEN NEEDLE 89069761192 Active Marvel MARROQUIN Active AMITIZA 24 MCG ORAL CAPS Take one capsule BID for constipation LUBIPROSTONE 34285052731 Active Mima Erazo APRN Active TRUEPLUS LANCETS 30G MISC 3 a day LANCETS 19993776952 Active Marvel MARROQUIN Active TOLTERODINE TARTRATE 2 MG TABS 1 pill twice daily, for bladder TOLTERODINE TARTRATE 15250662369 No Longer Active Vanessa Hickey MD Active AMITIZA 24 MCG ORAL CAPS Take one capsule BID for constipation. LUBIPROSTONE 00651380824 No Longer Active Vanessa Hickey MD Active FLUVOXAMINE MALEATE 100 MG ORAL TABS take one tab every AM et HS, and take 1/ 2 tab at noon FLUVOXAMINE MALEATE 72528400966 Active Grace Azam RMA Active METOPROLOL SUCCINATE 100 MG [id number] 1 by mouth daily for blood pressure METOPROLOL SUCCINATE 75517661034 No Longer Active Grace Azam RMA Active METFORMIN HCL ER 500 MG [id number] Take three tablets by mouth everyday METFORMIN HCL 29494367450 No Longer Active Grace Azam RMA Active LOVAZA 1 GM CAPS 4 daily (for triglycerides) OMEGA-3- ACID ETHYL ESTERS 22853982254 No Longer Active Grace Azam RMA Active TRAZODONE HCL 100 MG ORAL TABS 1 tab by mouth for sleep TRAZODONE HCL 55182532932 No Longer Active Grace Azam RMA Active NOVOFINE 32G X 6 MM MISC use one four times per day INSULIN PEN NEEDLE 48578794374 No Longer Active Grace Azam RMA Active BACTROBAN 2 % CREAM Apply to affected area BID for up to 10 days MUPIROCIN CALCIUM 48091801822 No Longer Active Grace Azam RMA Active KEFLEX 500 MG CAP 1 po BID x 7 days CEPHALEXIN 49553722897 No Longer Active Cherelle Avila APRN Active FLUVOXAMINE MALEATE 100 MG TABS Take one (1) tablet by mouth am, 1/2 at noon FLUVOXAMINE MALEATE 32345801740 No Longer Active Mimacecily Erazo [employer] Active CORICIDIN HBP CONGESTION/COUGH 10-200 MG ORAL CAPS Take as directed on box as needed for cold/flu symptoms DEXTROMETHORPHAN-GUAIFENESIN 31627465843 Active Cherelle Speaks [employer] Active OMEGA-3 300 MG ORAL CAPS 4 caps by mouth daily OMEGA-3 FATTY ACIDS 07164480558 Active Mima Yokum [employer] Active FLUVOXAMINE MALEATE 100 MG ORAL TABS Take 1/2 tab at noon FLUVOXAMINE MALEATE 36556528547 No Longer Active Cherelle Avila ALBAN Active [facility] LUBRICANT EYE DROPS 0.4-0.3 % OPHTH SOLN POLYETHYL GLYCOL-PROPYL GLYCOL 50912177646 Active Mima Erazo [employer] Active MIRALAX POWD 17g by mouth daily, for constipation POLYETHYLENE GLYCOL 3350 33714441786 Active Alina Castaneda MD PhD Active TRUETEST TEST STRP check blood sugars 3x/day GLUCOSE BLOOD 65314187665 Active Maliheh Ziglari STOR[employer]OM SUPERVISOR Active ACCU-CHEK ROSA UZMA Use device to check blood sugars BLOOD GLUCOSE MONITORING SUPPL 49828454829 No Longer Active Maliheh Ziglari STOREROOM SUPERVISOR Active ACCU-CHEK ROSA INVITR STRP use strips with device to check blood sugars 3 times daily GLUCOSE BLOOD 95134058341 No Longer Active MalInteliWISE USAeh Ziglari STOREROOM SUPERVISOR Active VERAPAMIL HCL ER 180 MG ORAL CR-TABS 1 pill by mouth twice daily, for migraine prevention VERAPAMIL HCL 85002149179 Active Mima Erazo APRN Active CYCLOBENZAPRINE HCL 10 MG TABS 1 tablet by mouth three times daily, scheduled CYCLOBENZAPRINE HCL 84517329901 No Longer Active Alina Castaneda MD PhD Active HUMALOG 100 UNIT/ML SOLN Take 20 units with breakfast, 10u with lunch and suppetr. INSULIN LISPRO (HUMAN) 74009119357 No Longer Active Alina Castaneda MD PhD Active TRUETEST TEST STRP check sugars 4x/day GLUCOSE BLOOD 77666962153 No Longer Active Alina Castaneda MD PhD Active MORPHINE SULFATE 30 MG TABS 1 pill by mouth twice daily, for pain MORPHINE SULFATE 89797831780 No Longer Active Mason Loredo MD Active ACYCLOVIR 400 MG ORAL TABS 1 pill three times daily x 5 days, for cold sore outbreak ACYCLOVIR 09239636700 No Longer Active Alina Castaneda MD PhD Active PENICILLIN V POTASSIUM 500 MG TABS 1 pill by mouth three times daily PENICILLIN V POTASSIUM 80121999649 No Longer Active Alina Castaneda MD PhD Active UROXATRAL 10 MG [id number] Take 1 tablet by mouth daily ALFUZOSIN HCL 95072969470 No Longer Active Alina Castaneda MD PhD Active THIOTHIXENE 5 MG CAPS by mouth twice a day THIOTHIXENE 44981411126 No Longer Active Alina Castaneda MD PhD Active ZYPREXA 7.5 MG TABS 1 at HS OLANZAPINE 60296634371 No Longer Active Alina Castaneda MD PhD Active BD INSULIN SYRINGE 28G X 1/2" 1 ML MISC 1 four times per day INSULIN SYRINGE-NEEDLE U-100 06458589956 Active Marvel Charles STOREROOM SUPERVISOR Active DETROL LA 4 MG [id number]-ZZN Take 1 tablet by mouth daily TOLTERODINE TARTRATE 01297463530 No Longer Active Alina Castaneda MD PhD Active TERESE CONTOUR TEST STRP monitor blood sugars 3x/day GLUCOSE BLOOD 62192310164 No Longer Active Alina Castaneda MD PhD Active EQL TRUETEST TEST STRP Test blood sugar TID GLUCOSE BLOOD 76316821961 No Longer Active Alina Castaneda MD PhD Active FLUTICASONE PROPIONATE 50 MCG/ACT SUSP 2 sprays each nostril qDay x 30 days FLUTICASONE PROPIONATE 74983480170 No Longer Active Alina Castaneda MD PhD Active IBUPROFEN 200 MG TABS 1 Q 6 hr. PRN IBUPROFEN 71166303959 No Longer Active Alina Castaneda MD PhD Active NIACIN ER 500 MG CR-TABS 4 qHS (for triglycerides) NIACIN 57441750283 No Longer Active Alina Castaneda MD PhD Active ALFUZOSIN HCL ER 10 MG [id number] 1 tablet daily ALFUZOSIN HCL 98182885073 Active Mima Erazo [employer] Active SAPHRIS 5 MG SUBL by mouth twice a day ASENAPINE MALEATE 21837326190 No Longer Active Marvel Mackenzieglari STOREROOM SUPERVISOR Active ACETAMINOPHEN 500 MG TABS 2 Q 6 hr. PRN ACETAMINOPHEN 13897001914 No Longer Active Maliheh Ziglari STOREROOM SUPERVISOR Active ORPHENADRINE CITRATE ER 100 MG [id number] 1 every 12 hr. as needed ORPHENADRINE CITRATE 70877512696 No Longer Active Alina Castaneda MD PhD Active NIACIN CR 500 MG CR-TABS 2 qHS NIACIN 66548618419 No Longer Active Alina Castaneda MD PhD Active AMOXICILLIN 500 MG CAPS 2 po BID x 10 days AMOXICILLIN 76312472583 No Longer Active Alina Castaneda MD PhD Active HYDROCODONE-ACETAMINOPHEN 7.5-325 MG TABS 1 four times a day as needed for pain HYDROCODONE-ACETAMINOPHEN 98218180565 No Longer Active Alina Castaneda MD PhD Active DOXEPIN HCL 10 MG CAPS Take 1 tablet by mouth daily DOXEPIN HCL 04088712507 No Longer Active Salina Han [facility] Active NAVANE 10 MG CAPS 1/2 tablet twice a day THIOTHIXENE No Longer Active Salina Han [facility] Active CYCLOBENZAPRINE HCL 10 MG TABS 1/2 tablet by mouth every 8 hours as needed for muscle spasms CYCLOBENZAPRINE HCL 30320040803 No Longer Active Alina Castaneda MD PhD Active BACTROBAN 2 % CREAM apply to ear and nose twice daily MUPIROCIN CALCIUM 05569593783 No Longer Active Alina Castaneda MD PhD Active HYDROCODONE-ACETAMINOPHEN 5-325 MG TABS take one tablet by mouth every four hours as needed for pain HYDROCODONE-ACETAMINOPHEN 35453740718 No Longer Active Alina Castaneda MD PhD Active ZYPREXA 5 MG TABS take one tablet by mouth every evening OLANZAPINE 98035012497 No Longer Active Alina Castaneda MD PhD Active ALBUTEROL SULFATE 0.083 % NEBU SOLN one vial per nebulizer TID and PRN cough/ soa ALBUTEROL SULFATE 49193402402 No Longer Active Alina Castaneda MD PhD Active GUAIFENESIN 600 MG [id number] 1 tablet by mouth twice daily if needed for cough GUAIFENESIN 86654014933 No Longer Active Marvel MARROQUIN Active AZITHROMYCIN 500 MG SOLR 1 po q day AZITHROMYCIN 66551561323 No Longer Active Alina Castaneda MD PhD Active PROMETHAZINE-CODEINE 6.25-10 MG/5ML SYRP 1 tsp po q 6 hours prn cough PROMETHAZINE-CODEINE 98318554351 No Longer Active Alina Castaneda MD PhD Active CEFDINIR 300 MG CAPS by mouth twice a day CEFDINIR 16751047444 No Longer Active Alina Castaneda MD PhD Active METFORMIN HCL 500 MG [id number] Take 3 tablets by mouth everyday METFORMIN HCL 17478774266 No Longer Active Alina Castaneda MD PhD Active LEVEMIR 100 UNIT/ML SOLN 90 units SQ qHS INSULIN DETEMIR 12433799492 No Longer Active Marvel MARROQUIN Active TOPROL XL 100 MG [id number] 1 @ HS METOPROLOL SUCCINATE 72057780250 No Longer Active Marvel MARROQUIN Active ALLOPURINOL 300 MG TABS Take one by mouth daily ALLOPURINOL 17164000606 Active Mima Yoeloinaum [employer] Active ZYPREXA 10 MG TABS Take one by mouth daily OLANZAPINE 41335661762 No Longer Active Alina Castaneda MD PhD Active NOVOLOG 100 UNIT/ML SOLN 40 units with every meal INSULIN ASPART 81208097143 No Longer Active Alina Castaneda MD PhD Active VERAPAMIL HCL CR 120 MG TAB CR 1 qPM VERAPAMIL HCL 89084099328 No Longer Active Salina Han RMA Active ZYPREXA 15 MG TABS Take 1 tablet by mouth daily OLANZAPINE 42662341816 No Longer Active Marvel MENDOZAP Active ALBUTEROL SULFATE (2.5 MG/3ML) 0.083% NEBU 1 neb tid and prn cough ALBUTEROL SULFATE 50049010928 No Longer Active Alina Castaneda MD PhD Active LANTUS 100 UNIT/ML SOLN 60 units sq q hs INSULIN GLARGINE 46536888978 No Longer Active CRYSTAL Suarez Active ALBUTEROL SULFATE (2.5 MG/3ML) 0.083% NEBU 1 neb tid and prn cough ALBUTEROL SULFATE (2.5 MG/3ML) 0.083% NEBU 920408 ALBUTEROL SULFATE Inactive ZYPREXA 15 MG TABS Take 1 tablet by mouth daily ZYPREXA 15 MG TABS 978545 OLANZAPINE Inactive VERAPAMIL HCL CR 120 MG TAB CR 1 qPM VERAPAMIL HCL CR 120 MG TAB CR VERAPAMIL HCL Inactive ZYPREXA 10 MG TABS Take one by mouth daily ZYPREXA 10 MG TABS 539587 OLANZAPINE Inactive TOPROL XL 100 MG [id number] 1 @ HS TOPROL XL 100 MG [id number] METOPROLOL SUCCINATE Inactive LEVEMIR 100 UNIT/ML SOLN 90 units SQ qHS LEVEMIR 100 UNIT/ML SOLN INSULIN DETEMIR Inactive PROMETHAZINE-CODEINE 6.25-10 MG/5ML SYRP 1 tsp po q 6 hours prn cough PROMETHAZINE-CODEINE 6.25-10 MG/5ML SYRP 462965 PROMETHAZINE- CODEINE Inactive GUAIFENESIN 600 MG [id number] 1 tablet by mouth twice daily if needed for cough GUAIFENESIN 600 MG [id number] GUAIFENESIN Inactive ALBUTEROL SULFATE 0.083 % NEBU SOLN one vial per nebulizer TID and PRN cough/ soa ALBUTEROL SULFATE 0.083 % NEBU SOLN 226623 ALBUTEROL SULFATE Inactive ZYPREXA 5 MG TABS take one tablet by mouth every evening ZYPREXA 5 MG TABS 517283 OLANZAPINE Inactive HYDROCODONE-ACETAMINOPHEN 5-325 MG TABS take one tablet by mouth every four hours as needed for pain HYDROCODONE-ACETAMINOPHEN 5-325 MG TABS 302789 HYDROCODONE-ACETAMINOPHEN Inactive BACTROBAN 2 % CREAM apply to ear and nose twice daily BACTROBAN 2 % CREAM 334289 MUPIROCIN CALCIUM Inactive CYCLOBENZAPRINE HCL 10 MG TABS 1/2 tablet by mouth every 8 hours as needed for muscle spasms CYCLOBENZAPRINE HCL 10 MG TABS 496939 CYCLOBENZAPRINE HCL Inactive NAVANE 10 MG CAPS 1/2 tablet twice a day NAVANE 10 MG CAPS THIOTHIXENE Inactive DOXEPIN HCL 10 MG CAPS Take 1 tablet by mouth daily DOXEPIN HCL 10 MG CAPS 8696677 DOXEPIN HCL Inactive HYDROCODONE-ACETAMINOPHEN 7.5-325 MG TABS 1 four times a day as needed for pain HYDROCODONE-ACETAMINOPHEN 7.5-325 MG TABS 310253 HYDROCODONE-ACETAMINOPHEN Inactive NIACIN CR 500 MG CR-TABS 2 qHS NIACIN CR 500 MG CR- TABS NIACIN Inactive ORPHENADRINE CITRATE ER 100 MG [id number] 1 every 12 hr. as needed ORPHENADRINE CITRATE ER 100 MG [id number]-DVU ORPHENADRINE CITRATE Inactive ACETAMINOPHEN 500 MG TABS 2 Q 6 hr. PRN ACETAMINOPHEN 500 MG TABS 681193 ACETAMINOPHEN Inactive SAPHRIS 5 MG SUBL by mouth twice a day SAPHRIS 5 MG SUBL ASENAPINE MALEATE Inactive NIACIN ER 500 MG CR-TABS 4 qHS (for triglycerides) NIACIN ER 500 MG CR-TABS NIACIN Inactive IBUPROFEN 200 MG TABS 1 Q 6 hr. PRN IBUPROFEN 200 MG TABS 200302 IBUPROFEN Inactive FLUTICASONE PROPIONATE 50 MCG/ACT SUSP 2 sprays each nostril qDay x 30 days FLUTICASONE PROPIONATE 50 MCG/ACT SUSP 9003596 FLUTICASONE PROPIONATE Inactive EQL TRUETEST TEST STRP Test blood sugar TID EQL TRUETEST TEST STRP GLUCOSE BLOOD Inactive TERESE CONTOUR TEST STRP monitor blood sugars 3x/day TERESE CONTOUR TEST STRP GLUCOSE BLOOD Inactive DETROL LA 4 MG [id number] Take 1 tablet by mouth daily DETROL LA 4 MG [id number] TOLTERODINE TARTRATE Inactive ZYPREXA 7.5 MG TABS 1 at HS ZYPREXA 7.5 MG TABS 876880 OLANZAPINE Inactive THIOTHIXENE 5 MG CAPS by mouth twice a day THIOTHIXENE 5 MG CAPS 845403 THIOTHIXENE Inactive UROXATRAL 10 MG [id number] Take 1 tablet by mouth daily UROXATRAL 10 MG [id number] ALFUZOSIN HCL Inactive ACYCLOVIR 400 MG ORAL TABS 1 pill three times daily x 5 days, for cold sore outbreak ACYCLOVIR 400 MG ORAL TABS 625029 ACYCLOVIR Inactive TRUETEST TEST STRP check sugars 4x/day TRUETEST TEST STRP GLUCOSE BLOOD Inactive HUMALOG 100 UNIT/ML SOLN Take 20 units with breakfast, 10u with lunch and suppetr. HUMALOG 100 UNIT/ML SOLN INSULIN LISPRO ( HUMAN) Inactive CYCLOBENZAPRINE HCL 10 MG TABS 1 tablet by mouth three times daily, scheduled CYCLOBENZAPRINE HCL 10 MG TABS 018847 CYCLOBENZAPRINE HCL Inactive ACCU-CHEK ROSA INVITR STRP use strips with device to check blood sugars 3 times daily ACCU-CHEK ROSA INVITR STRP GLUCOSE BLOOD Inactive ACCU-CHEK ROSA UZMA Use device to check blood sugars ACCU-CHEK ROSA UZMA BLOOD GLUCOSE MONITORING SUPPL Inactive FLUVOXAMINE MALEATE 100 MG ORAL TABS Take 1/2 tab at noon FLUVOXAMINE MALEATE 100 MG ORAL TABS 400381 FLUVOXAMINE MALEATE Inactive FLUVOXAMINE MALEATE 100 MG TABS Take one (1) tablet by mouth am, 1/2 at noon FLUVOXAMINE MALEATE 100 MG TABS 494649 FLUVOXAMINE MALEATE Inactive BACTROBAN 2 % CREAM Apply to affected area BID for up to 10 days BACTROBAN 2 % CREAM 678854 MUPIROCIN CALCIUM Inactive NOVOFINE 32G X 6 MM MISC use one four times per day NOVOFINE 32G X 6 MM MISC INSULIN PEN NEEDLE Inactive TRAZODONE HCL 100 MG ORAL TABS 1 tab by mouth for sleep TRAZODONE HCL 100 MG ORAL TABS 538015 TRAZODONE HCL Inactive LOVAZA 1 GM CAPS 4 daily (for triglycerides) LOVAZA 1 GM CAPS 784938 JDAFI-4-CSMO ETHYL ESTERS Inactive METFORMIN HCL ER 500 MG [id number] Take three tablets by mouth everyday METFORMIN HCL ER 500 MG FH81P-MIT METFORMIN HCL Inactive METOPROLOL SUCCINATE 100 MG HQ65M-NIH 1 by mouth daily for blood pressure METOPROLOL SUCCINATE 100 MG FB74P-VYR METOPROLOL SUCCINATE Inactive AMITIZA 24 MCG ORAL CAPS Take one capsule BID for constipation. AMITIZA 24 MCG ORAL CAPS LUBIPROSTONE Inactive TOLTERODINE TARTRATE 2 MG TABS 1 pill twice daily, for bladder TOLTERODINE TARTRATE 2 MG TABS 937199 TOLTERODINE TARTRATE Inactive COLACE 100 MG CAPS 1 pill by mouth twice daily, for constipation COLACE 100 MG CAPS 1018229 DOCUSATE SODIUM Inactive LOMOTIL 2.5-0.025 MG ORAL TABS take 1-2 tabs PO after each stool, no more than 8 in 24 hours LOMOTIL 2.5-0.025 MG ORAL TABS 9995850 DIPHENOXYLATE-ATROPINE Inactive ZOFRAN 4 MG TABS 1 po q4hr PRN Nausea ZOFRAN 4 MG TABS 315092 ONDANSETRON HCL Inactive HYDROCODONE-ACETAMINOPHEN 5-325 MG TABS 2 tabs by mouth three times daily for pain HYDROCODONE-ACETAMINOPHEN 5-325 MG TABS 634396 HYDROCODONE-ACETAMINOPHEN Inactive ZOLPIDEM TARTRATE 10 MG TABS take at bedtime ZOLPIDEM TARTRATE 10 MG TABS 107779 ZOLPIDEM TARTRATE Inactive LISINOPRIL 20 MG TABS 1 BID LISINOPRIL 20 MG TABS 867335 LISINOPRIL Inactive TRAVATAN Z 0.004 % SOLN 1 gtt each eye daily TRAVATAN Z 0.004 % SOLN TRAVOPROST Inactive LATUDA 60 MG ORAL TABS Take one by mouth daily LATUDA 60 MG ORAL TABS LURASIDONE HCL Inactive FLUVOXAMINE MALEATE 50 MG ORAL TABS 1 tab by mouth daily FLUVOXAMINE MALEATE 50 MG ORAL TABS 711336 FLUVOXAMINE MALEATE Inactive CEFDINIR 300 MG CAPS by mouth twice a day CEFDINIR 300 MG CAPS 038006 CEFDINIR Inactive AZITHROMYCIN 500 MG SOLR 1 po q day AZITHROMYCIN 500 MG SOLR 49313706785 AZITHROMYCIN Inactive AMOXICILLIN 500 MG CAPS 2 po BID x 10 days AMOXICILLIN 500 MG CAPS 142266 AMOXICILLIN Inactive PENICILLIN V POTASSIUM 500 MG TABS 1 pill by mouth three times daily PENICILLIN V POTASSIUM 500 MG TABS 126029 PENICILLIN V POTASSIUM Inactive KEFLEX 500 MG CAP 1 po BID x 7 days KEFLEX 500 MG CAP 384400 CEPHALEXIN Inactive Immunizations Vaccine Administration Date Value [...] Fluvirin, Fluarix, Agriflu(>=18 yo)) Fluzone (>3 yrs.) [WBY118] Influenza, seasonal, injectable pneumococcal immunization administered Pneumovax 23 [CVX33] pneumococcal polysaccharide vaccine, 23 valent Vital Signs Date Name Value Unit Range Description blood pressure, diastolic - 8462-4 65 mm[Hg] BP garcia blood pressure, systolic - 8480-6 119 mm[Hg] BP sys pulse rate E&M - 8867-4 66 /min Heart rate temperature E&M 97.7 [degF] Body temperature weight E&M - 3141-9 203.5 [lb_av] Weight Measured blood pressure, diastolic - [...] E&M - 3141-9 220 [lb_av] Weight Measured Diagnostic Results Date Name Value Unit Range Description Lab Report: Basic Metabolic Panel, HGBA1C - Chemistry sodium, serum 140 mmol/L 404-412 8025/11/09 potassium, serum 4.0 mmol/L 3.5-5.2 chloride, serum 102 mmol/L 98-107 carbon dioxide, venous blood 33.0 mmol/L 21.0-32.0 blood glucose 120 mg/dL 65-110 calcium, serum 9.0 mg/dL 8.5-10.1 urea nitrogen, blood 8 mg/dL 7-18 creatinine, serum 0.86 mg/dL 0.55-1.30 hemoglobin A1C, blood, as % of total hemoglobin 6.4 % 4.3-6.0 Lab Report: HGBA1C - Chemistry hemoglobin A1C, blood, as % of total hemoglobin 6.3 % 4.3-6.0 hemoglobin A1C, blood, as % of total hemoglobin 6.1 % 4.3-6.0 Lab Report: Lipid Panel, HEPATIC PANEL, Uric Acid - Chemistry cholesterol, serum 187 mg/dL [phone]/06/14 triglyceride, serum, fasting 246 mg/dL 30-200 HDL [...] negative urinalysis, routine Clean Catch Office Visit: Weak stream - Chemistry RBC, urine, dipstick negative protein, total urine random negative mg/dL Office Visit: Weak stream - Urinalysis pH, urine, semiquantitative 6 specific gravity, urine 1.005 urinalysis, routine Clean Catch culture status No ketones, urine, by test strip negative bilirubin, urine negative glucose, urine, semiquantitative negative urine color yellow appearance, urine clear leukocyte esterase, urine, by dipstick negative nitrite, urine, semiquantitative negative urobilinogen, urine, semiquantitative (dipstick) negative protein, urine, semiquantitative (dipstick) negative Encounters Code Encounter Date Provider Facility CPT-91866 Level 3 Est. Patient 09:12:14 DEVICE ENGINEER Mima Erazo [facility] CPT-94674 Level 3 Est. Patient 16:52:51 CDT Vanessa Hickey MD [facility] CPT-25594 Level 3 Est. Patient 17:40:16 CDT Mima Erazo [facility] CPT-39176 Level 3 Est. Patient 14:34:52 CDT Vanessa Hickey MD [facility] CPT-94105 Level 3 Est. Patient 16:27:51 CDT Mima Erazo [facility] CPT-22895 Level 3 Est. Patient 14:39:00 DEVICE ENGINEER Vanessa Hickey MD [facility] CPT-69800 Level 2 Est. Patient 18:43:34 CDT Mima Erazo [facility] CPT-19329 Level 3 Est. Patient 16:22:09 CDT Cherelle Avila [facility] CPT-87798 Level 4 Est. Patient 17:55:14 CDT Mima Erazo [facility] CPT-35364 Level 2 Est. Patient 17:13:21 CDT Alina Castaneda MD [facility]-14910 Level 3 Est. Patient 14:46:15 CDT Vanessa Hickey MD [facility]-62300 Level 3 Est. Patient 09:34:56 CDT Alina Castaneda MD [facility]-67617 Level 3 Est. Patient 21:40:19 CDT Mima Erazo [facility] CPT-03871 Level 3 Est. Patient 09:26:40 CDT Marvel Charles [facility]-69044 Level 3 Est. Patient 12:36:43 CDT Vanessa Hickey MD [facility]-95727 Level 3 Est. Patient 12:57:49 CDT Vanessa Hickey MD [facility]-69434 Level 3 Est. Patient 00:28:25 CDT Alina Castaneda MD [facility]-74192 Level 2 Est. Patient 12:52:14 CDT Alina Castaneda MD [facility]-78444 Level 3 Est. Patient 11:51:18 DEVICE ENGINEER Alina Castaneda MD [facility]-10381 Level 3 Est. Patient 10:09:22 DEVICE ENGINEER Alina Castaneda MD [facility]-78508 Level 3 Est. Patient 14:36:26 DEVICE ENGINEER Marvel Charles [facility] Level 3 Est. Patient 13:34:47 DEVICE ENGINEER Alina Castaneda MD [facility]-11977 Level 3 Est. Patient 19:52:08 DEVICE ENGINEER Alina Castaneda MD [facility]38206 Level 3 Est. Patient 10:01:51 DEVICE ENGINEER Marvel Araceli [facility]-90630 Level 3 Est. Patient 21:54:06 CDT Vanessa Hickey MD [facility]-91026 Level 3 Est. Patient 08:54:46 CDT Alina Castaneda MD [facility]32866 Level 3 Est. Patient 09:32:11 CDT [facility]-90237 Level 3 Est. Patient 12:02:49 CDT Alina Castaneda MD [facility]-48248 Level 3 Est. Patient 19:17:33 CDT Alina Castaneda MD [facility]90897 Level 3 Est. Patient 13:19:10 CDT Marvel Charles [facility]-90326 Level 3 Est. Patient 08:20:05 CDT Alina Castaneda MD [facility]-33000 Level 3 Est. Patient 15:17:18 CDT Alina Castaneda MD [facility]-96853 Level 3 Est. Patient 14:25:36 DEVICE ENGINEER Marvel Charles [facility]52456 Level 3 Est. Patient 10:09:15 DEVICE ENGINEER Marvel Charles [facility]-53698 Level 3 Est. Patient 21:28:43 CDT Alina Castaneda MD [facility]96280 Level 3 Est. Patient 15:20:11 CDT Marvel Charles [facility] CPT-70750 Level 4 Est. Patient 19:08:12 CDT Alina Castaneda MD [facility]-73790 Level 3 Est. Patient 15:06:39 CDT Marvel Charles [facility] CPT-00195 Level 4 Est. Patient 17:48:15 CDT Alina Castaneda MD [facility] CPT-51615 Level 3 Est. Patient 14:53:49 CDT Alina Castaneda MD [facility]-63373 Level 3 Est. Patient 09:35:16 CDT Alina Castaneda MD [facility]-13239 Level 3 Est. Patient 12:23:22 CDT Alina Castaneda MD [facility] CPT-17640 Level 3 Est. Patient 16:19:15 CDT Alina Castaneda MD [facility] CPT-48955 Level 3 Est. Patient 21:39:56 DEVICE ENGINEER Alina Castaneda MD [facility] CPT-85031 Level 4 Est. Patient 14:12:56 DEVICE ENGINEER Alina Castaneda MD [facility] CPT-70278 Level 2 Est. Patient 15:34:57 DEVICE ENGINEER Alina Castaneda MD [facility] CPT-75615 Level 3 Est. Patient 12:17:04 DEVICE ENGINEER Alina Castaneda MD [facility]-66403 Level 3 Est. Patient 09:18:18 DEVICE ENGINEER Marvel Charles [facility] CPT-66833 Level 2 Est. Patient 21:50:24 CDT Alina Castaneda MD [facility]-74999 Level 3 Est. Patient 09:17:28 CDT Brooksjohn Charles [facility]-39404 Level 4 Est. Patient 18:54:02 CDT Alina Castaneda MD [facility]-41776 Level 3 Est. Patient 10:47:10 CDT Alina Castaenda MD [facility]90778 Level 3 Est. Patient 09:22:20 CDT Marvel Araceli [facility]-42080 Level 3 Est. Patient 16:39:43 CDT Marvel Araceli [facility]-68613 Level 3 Est. Patient 16:05:16 CDT Alina Castaneda MD [facility]-22235 Level 3 Est. Patient 00:29:15 CDT Alina Castaneda MD [facility]21759 Level 3 Est. Patient 10:49:22 DEVICE ENGINEER Brooksjohn Charles [facility]-67096 Level 3 Est. Patient 21:30:19 DEVICE ENGINEER Alina Castaneda MD [facility]-86679 Level 4 Est. Patient 17:04:11 DEVICE ENGINEER Brooksjohn Charles [facility]-75678 Level 3 Est. Patient 15:34:11 DEVICE ENGINEER Brookslashondanivia Araceli [facility]-98959 Level 2 Est. Patient 12:51:58 DEVICE ENGINEER Alina Castaneda MD [facility]-16414 Level 3 Est. Patient 13:20:01 DEVICE ENGINEER Alina Castaneda MD [facility]-44711 Level 3 Est. Patient 09:23:35 CDT Alina Castaneda MD PhD [facility] Procedures Code Procedure Name Date Entry Date Standard Description CPT-48718 HGBA1C - LAB USE ONLY 09:30:27 DEVICE ENGINEER CPT-86856 BMP - LAB USE ONLY 09:30:27 DEVICE ENGINEER CPT-41561 Venipuncture Draw Fee 09:30:26 DEVICE ENGINEER CPT-TCMM Transitional Care Mgmt-Moderate 10:25:31 CDT CPT-90670 Bladder Scan 14:34:53 CDT CPT-16137 Bladder Scan 14:39:01 DEVICE ENGINEER CPT-TCMM Transitional Care Mgmt-Moderate 10:30:19 DEVICE ENGINEER CPT-29847 Bladder Scan 12:36:44 CDT CPT-18200 Bladder Scan 21:54:06 CDT CPT-G0008 Administration of Influenza Virus Vaccine 13:05:26 CDT CPT-20725 Fluzone Quadrivalent Intramuscular Suspension 0.5 ML 13: 05:26 CDT CPT-48991 Administration single or combination vaccine inc oral 11 :49:51 CDT CPT-43250 Pneumovax 11:49:51 CDT CPT-39852 Ribs unilateral 2V 12:37:22 DEVICE ENGINEER CPT-12070 Chest 2V Frontal and Lat 17:15:26 CDT CPT-88661 Abx/Therapy Injection 18:54:02 CDT CPT-J0696 Rocephin 1000 mg (Ceftriaxone) 16:00:32 CDT CPT-02853 Chest 2V Frontal and Lat 15:26:45 CDT CPT-97446 Chest 2V Frontal and Lat 10:23:27 CDT CPT-91881 Venipuncture Draw Fee 10:11:00 CDT CPT-42989 Administration single or combination vaccine inc oral 11 :56:38 CDT CPT-86066 Influenza split virus > age 3 11:56:38 CDT CPT-91782 Venipuncture Draw Fee 08:49:54 DEVICE ENGINEER CPT-12259 EKG Trac and Interp 17:54:19 DEVICE ENGINEER
--- OUTSIDE RECORDS SUMMARY | 2018-07-02 13:32 | XMS REPORT | Clinical Summary ---
Author Author Admin, TERELL Organization [facility] Address Unknown Phone Unavailable Allergies, Adverse Reactions, 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 Kacey [employer]ER Benign paroxysmal positional vertigo Vertigo, benign paroxysmal position 386.11 Inactive Mima Kacey [employer]SEMBLER Benign paroxysmal positional vertigo High-risk sexual behavior [...] 10u lunch and supper INSULIN LISPRO (HUMAN) 27033152486 Active Marvel Araceli MARROQUIN Active LATUDA 120 MG ORAL TABS 1 pill by mouth nightly LURASIDONE HCL 76577629604 Active Alina Castaneda MD PhD Active COLACE 100 MG CAPS 1 pill by mouth twice daily, for constipation DOCUSATE SODIUM 92387745096 Active Alina Castaneda MD PhD Active TRUETEST TEST STRP check blood sugars 3x/day GLUCOSE BLOOD 71927870323 Active Malnivia 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 SECURITY INVESTIGATOR Active ACCU-CHEK ROSA UZMA Use device to check blood sugars BLOOD GLUCOSE MONITORING SUPPL 45927928810 No Longer Active Marvel 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 SECURITY INVESTIGATOR Active ACCU-CHEK ROSA INVITR STRP use strips with device to check blood sugars 3 times daily GLUCOSE BLOOD 46398018075 No Longer Active Brooksnivia Araceli MENDOZAP Active VERAPAMIL HCL ER 180 MG ORAL CR-TABS 1 pill by mouth twice daily, for migraine prevention VERAPAMIL HCL 67635023889 Active Alina Castaneda MD PhD Active CYCLOBENZAPRINE HCL 10 MG TABS 1 tablet by mouth three times daily, scheduled CYCLOBENZAPRINE HCL 37461403215 No Longer Active Alina Castaneda MD PhD Active HUMALOG 100 UNIT/ML SOLN Take 20 units with breakfast, 10u with lunch and suppetr. INSULIN LISPRO (HUMAN) 48155270423 No Longer Active Alina Castaneda MD PhD Active TRUETEST TEST STRP check sugars 4x/day GLUCOSE BLOOD 51558343106 No Longer Active Alina Castaneda MD PhD Active MORPHINE SULFATE 30 MG TABS 1 pill by mouth twice daily, for pain MORPHINE SULFATE 45061557684 Active Mason Loredo MD Active ACYCLOVIR 400 MG ORAL TABS 1 pill three times daily x 5 days, for cold sore outbreak ACYCLOVIR 23320294241 No Longer Active Alina Castaneda MD PhD Active PENICILLIN V POTASSIUM 500 MG TABS 1 pill by mouth three times daily PENICILLIN V POTASSIUM 07313562836 No Longer Active Alina Castaneda MD PhD Active UROXATRAL 10 MG [id number] Take 1 tablet by mouth daily ALFUZOSIN HCL 20428478112 No Longer Active Alina Castaneda MD PhD Active THIOTHIXENE 5 MG CAPS by mouth twice a day THIOTHIXENE 16505597441 No Longer Active Alina Castaneda MD PhD Active ZYPREXA 7.5 MG TABS 1 at HS OLANZAPINE 05675294130 No Longer Active Alnia Castaneda MD PhD Active LEVEMIR 100 UNIT/ML SOLN Take 70 u at 7-8pm INSULIN DETEMIR 90835096325 Active Mallashondaeh Ziglari SECURITY INVESTIGATOR Active BD INSULIN SYRINGE 28G X 1/2" 1 ML MISC 1 four times per day INSULIN SYRINGE-NEEDLE U-100 17445192917 Active Maljohn Mackenzieglari SECURITY INVESTIGATOR Active TOLTERODINE TARTRATE 2 MG TABS 1 pill twice daily, for bladder TOLTERODINE TARTRATE 69080065187 Active Alina Castaneda MD PhD Active DETROL LA 4 MG [id number]-VNP Take 1 tablet by mouth daily TOLTERODINE TARTRATE 41753911075 No Longer Active Alina Castaneda MD PhD Active HYDROCODONE-ACETAMINOPHEN 5-325 MG TABS 2 tabs by mouth three times daily as needed for pain HYDROCODONE-ACETAMINOPHEN 51101491823 Active Alina Castaneda MD PhD Active TERESE CONTOUR TEST STRP monitor blood sugars 3x/day GLUCOSE BLOOD 00910930239 No Longer Active Alina Castaneda MD PhD Active EQL TRUETEST TEST STRP Test blood sugar TID GLUCOSE BLOOD 99397408261 No Longer Active Alina Castaneda MD PhD Active FLUTICASONE PROPIONATE 50 MCG/ACT SUSP 2 sprays each nostril qDay x 30 days FLUTICASONE PROPIONATE 39872782730 No Longer Active Alina Castaneda MD PhD Active IBUPROFEN 200 MG TABS 1 Q 6 hr. PRN IBUPROFEN 75920729939 No Longer Active Alina Castaneda MD PhD Active NIACIN ER 500 MG CR-TABS 4 qHS (for triglycerides) NIACIN 89222877808 No Longer Active Alina Castaneda MD PhD Active ALFUZOSIN HCL ER 10 MG [id number] 1 tablet daily ALFUZOSIN HCL 65627986204 Active Vanessa Hcikey MD Active CLONAZEPAM 1 MG TABS 1 pill by mouth three times daily CLONAZEPAM 29752005614 Active Alina Castaneda MD PhD Active LOVAZA 1 GM CAPS 4 daily (for triglycerides) SOLXR-9-ALRM ETHYL ESTERS 35270678620 Active Mao Rodriguez MD Active SAPHRIS 5 MG SUBL by mouth twice a day ASENAPINE MALEATE 46697238371 No Longer Active Marvel MARROQUIN Active ACETAMINOPHEN 500 MG TABS 2 Q 6 hr. PRN ACETAMINOPHEN 43617989953 No Longer Active Marvel MARROQUIN Active ORPHENADRINE CITRATE ER 100 MG [id number] 1 every 12 hr. as needed ORPHENADRINE CITRATE 00551523949 No Longer Active Alina Castaneda MD PhD Active NIACIN CR 500 MG CR-TABS 2 qHS NIACIN 43590621042 No Longer Active Alina Castaneda MD PhD Active AMOXICILLIN 500 MG CAPS 2 po BID x 10 days AMOXICILLIN 66997061605 No Longer Active Alina Castaneda MD PhD Active HYDROCODONE-ACETAMINOPHEN 7.5-325 MG TABS 1 four times a day as needed for pain HYDROCODONE-ACETAMINOPHEN 13080440492 No Longer Active Alina Castaneda MD PhD Active METFORMIN HCL ER 500 MG [id number] Take three tablets by mouth everyday METFORMIN HCL 20435381631 Active Marvel MENDOZAP Active DOXEPIN HCL 10 MG CAPS Take 1 tablet by mouth daily DOXEPIN HCL 81774997116 No Longer Active Salina Han [facility] Active NAVANE 10 MG CAPS 1/2 tablet twice a day THIOTHIXENE No Longer Active Salina Han A Active CYCLOBENZAPRINE HCL 10 MG TABS 1/2 tablet by mouth every 8 hours as needed for muscle spasms CYCLOBENZAPRINE HCL 87599307373 No Longer Active Alina Castaneda MD PhD Active BACTROBAN 2 % CREAM apply to ear and nose twice daily MUPIROCIN CALCIUM 77114629614 No Longer Active Alina Castaneda MD PhD Active HYDROCODONE-ACETAMINOPHEN 5-325 MG TABS take one tablet by mouth every four hours as needed for pain HYDROCODONE-ACETAMINOPHEN 25223705061 No Longer Active Alina Castaneda MD PhD Active ZOLPIDEM TARTRATE 10 MG TABS take at bedtime ZOLPIDEM TARTRATE 50623567031 Active Alina Castaneda MD PhD Active ZYPREXA 5 MG TABS take one tablet by mouth every evening OLANZAPINE 01406489592 No Longer Active Alina Castaneda MD PhD Active ALBUTEROL SULFATE 0.083 % NEBU SOLN one vial per nebulizer TID and PRN cough/ soa ALBUTEROL SULFATE 77838998626 No Longer Active Alina Castaneda MD PhD Active GUAIFENESIN 600 MG BE12Z-LGV 1 tablet by mouth twice daily if needed for cough GUAIFENESIN 67236390296 No Longer Active Marvel MENDOZAP Active AZITHROMYCIN 500 MG SOLR 1 po q day AZITHROMYCIN 11724595145 No Longer Active Alina Castaneda MD PhD Active METOPROLOL SUCCINATE 100 MG PV77U-MHG 1 by mouth daily for blood pressure METOPROLOL SUCCINATE 16748262100 Active Alina Castaneda MD PhD Active PROMETHAZINE-CODEINE 6.25-10 MG/5ML SYRP 1 tsp po q 6 hours prn cough PROMETHAZINE-CODEINE 03398425124 No Longer Active Alina Castaneda MD PhD Active CEFDINIR 300 MG CAPS by mouth twice a day CEFDINIR 56429114112 No Longer Active Alina Castaneda MD PhD Active METFORMIN HCL 500 MG IJ13O-VAF Take 3 tablets by mouth everyday METFORMIN HCL 08996581125 No Longer Active Alina Castaneda MD PhD Active LEVEMIR 100 UNIT/ML SOLN 90 units SQ qHS INSULIN DETEMIR 48130671381 No Longer Active Marvel MARROQUIN Active TOPROL XL 100 MG JQ97N-LHA 1 @ HS METOPROLOL SUCCINATE 42039102741 No Longer Active Marvel MARROQUIN Active ALLOPURINOL 300 MG TABS Take one by mouth daily ALLOPURINOL 93500962606 Active Alina Castaneda MD PhD Active ZYPREXA 10 MG TABS Take one by mouth daily OLANZAPINE 67017239053 No Longer Active Alina Castaneda MD PhD Active NOVOLOG 100 UNIT/ML SOLN 40 units with every meal INSULIN ASPART 31530431762 No Longer Active Alina Castaneda MD PhD Active VERAPAMIL HCL CR 120 MG TAB CR 1 qPM VERAPAMIL HCL 21068960817 No Longer Active Salina Han A Active ZYPREXA 15 MG TABS Take 1 tablet by mouth daily OLANZAPINE 22217247339 No Longer Active Marvel MARROQUIN Active LISINOPRIL 20 MG TABS 1 BID LISINOPRIL 45833953841 Active Alina Castaneda MD PhD Active ALBUTEROL SULFATE (2.5 MG/3ML) 0.083% NEBU 1 neb tid and prn cough ALBUTEROL SULFATE 77342270737 No Longer Active Alina Castaneda MD PhD Active FLUVOXAMINE MALEATE 100 MG TABS Take one (1) tablet by mouth am, 1/2 at noon, 1 pm FLUVOXAMINE MALEATE 46404721341 Active Alina Castaneda MD PhD Active TRAVATAN Z 0.004 % SOLN 1 gtt each eye daily TRAVOPROST 63315193546 Active CRYSTAL Suarez Active LANTUS 100 UNIT/ML SOLN 60 units sq q hs INSULIN GLARGINE 17689449046 No Longer Active CRYSTAL Suarez Active ALBUTEROL SULFATE (2.5 MG/3ML) 0.083% NEBU 1 neb tid and prn cough ALBUTEROL SULFATE (2.5 MG/3ML) 0.083% NEBU 651389 ALBUTEROL SULFATE Inactive ZYPREXA 15 MG TABS Take 1 tablet by mouth daily ZYPREXA 15 MG TABS 793946 OLANZAPINE Inactive VERAPAMIL HCL CR 120 MG TAB CR 1 qPM VERAPAMIL HCL CR 120 MG TAB CR VERAPAMIL HCL Inactive ZYPREXA 10 MG TABS Take one by mouth daily ZYPREXA 10 MG TABS 826477 OLANZAPINE Inactive TOPROL XL 100 MG [id number] 1 @ HS TOPROL XL 100 MG PU38G-GNI METOPROLOL SUCCINATE Inactive LEVEMIR 100 UNIT/ML SOLN 90 units SQ qHS LEVEMIR 100 UNIT/ML SOLN INSULIN DETEMIR Inactive PROMETHAZINE-CODEINE 6.25-10 MG/5ML SYRP 1 tsp po q 6 hours prn cough PROMETHAZINE-CODEINE 6.25-10 MG/5ML SYRP 873979 PROMETHAZINE- CODEINE Inactive GUAIFENESIN 600 MG [id number]-GZE 1 tablet by mouth twice daily if needed for cough GUAIFENESIN 600 MG [id number]-MUE GUAIFENESIN Inactive ALBUTEROL SULFATE 0.083 % NEBU SOLN one vial per nebulizer TID and PRN cough/ soa ALBUTEROL SULFATE 0.083 % NEBU SOLN 393816 ALBUTEROL SULFATE Inactive ZYPREXA 5 MG TABS take one tablet by mouth every evening ZYPREXA 5 MG TABS 296908 OLANZAPINE Inactive HYDROCODONE-ACETAMINOPHEN 5-325 MG TABS take one tablet by mouth every four hours as needed for pain HYDROCODONE-ACETAMINOPHEN 5-325 MG TABS 034245 HYDROCODONE-ACETAMINOPHEN Inactive BACTROBAN 2 % CREAM apply to ear and nose twice daily BACTROBAN 2 % CREAM 973273 MUPIROCIN CALCIUM Inactive CYCLOBENZAPRINE HCL 10 MG TABS 1/2 tablet by mouth every 8 hours as needed for muscle spasms CYCLOBENZAPRINE HCL 10 MG TABS 039215 CYCLOBENZAPRINE HCL Inactive NAVANE 10 MG CAPS 1/2 tablet twice a day NAVANE 10 MG CAPS THIOTHIXENE Inactive DOXEPIN HCL 10 MG CAPS Take 1 tablet by mouth daily DOXEPIN HCL 10 MG CAPS 1066272 DOXEPIN HCL Inactive HYDROCODONE-ACETAMINOPHEN 7.5-325 MG TABS 1 four times a day as needed for pain HYDROCODONE-ACETAMINOPHEN 7.5-325 MG TABS 776083 HYDROCODONE-ACETAMINOPHEN Inactive NIACIN CR 500 MG CR-TABS 2 qHS NIACIN CR 500 MG CR- TABS NIACIN Inactive ORPHENADRINE CITRATE ER 100 MG [id number] 1 every 12 hr. as needed ORPHENADRINE CITRATE ER 100 MG [id number]-RKB ORPHENADRINE CITRATE Inactive ACETAMINOPHEN 500 MG TABS 2 Q 6 hr. PRN ACETAMINOPHEN 500 MG TABS 174149 ACETAMINOPHEN Inactive SAPHRIS 5 MG SUBL by mouth twice a day SAPHRIS 5 MG SUBL ASENAPINE MALEATE Inactive NIACIN ER 500 MG CR-TABS 4 qHS (for triglycerides) NIACIN ER 500 MG CR-TABS NIACIN Inactive IBUPROFEN 200 MG TABS 1 Q 6 hr. PRN IBUPROFEN 200 MG TABS 307406 IBUPROFEN Inactive FLUTICASONE PROPIONATE 50 MCG/ACT SUSP 2 sprays each nostril qDay x 30 days FLUTICASONE PROPIONATE 50 MCG/ACT SUSP 994748 FLUTICASONE PROPIONATE Inactive EQL TRUETEST TEST STRP Test blood sugar TID EQL TRUETEST TEST STRP GLUCOSE BLOOD Inactive TERESE CONTOUR TEST STRP monitor blood sugars 3x/day TERESE CONTOUR TEST STRP GLUCOSE BLOOD Inactive DETROL LA 4 MG [id number]-LBC Take 1 tablet by mouth daily DETROL LA 4 MG [id number] TOLTERODINE TARTRATE Inactive ZYPREXA 7.5 MG TABS 1 at HS ZYPREXA 7.5 MG TABS 512103 OLANZAPINE Inactive THIOTHIXENE 5 MG CAPS by mouth twice a day THIOTHIXENE 5 MG CAPS 469332 THIOTHIXENE Inactive UROXATRAL 10 MG [id number] Take 1 tablet by mouth daily UROXATRAL 10 MG [id number]-UWI ALFUZOSIN HCL Inactive ACYCLOVIR 400 MG ORAL TABS 1 pill three times daily x 5 days, for cold sore outbreak ACYCLOVIR 400 MG ORAL TABS 712101 ACYCLOVIR Inactive TRUETEST TEST STRP check sugars 4x/day TRUETEST TEST STRP GLUCOSE BLOOD Inactive HUMALOG 100 UNIT/ML SOLN Take 20 units with breakfast, 10u with lunch and suppetr. HUMALOG 100 UNIT/ML SOLN INSULIN LISPRO ( HUMAN) Inactive CYCLOBENZAPRINE HCL 10 MG TABS 1 tablet by mouth three times daily, scheduled CYCLOBENZAPRINE HCL 10 MG TABS 598765 CYCLOBENZAPRINE HCL Inactive ACCU-CHEK ROSA INVITR STRP use strips with device to check blood sugars 3 times daily ACCU-CHEK ROSA INVITR STRP GLUCOSE BLOOD Inactive ACCU-CHEK ROSA UZMA Use device to check blood sugars ACCU-CHEK ROSA UZMA BLOOD GLUCOSE MONITORING SUPPL Inactive CEFDINIR 300 MG CAPS by mouth twice a day CEFDINIR 300 MG CAPS 059924 CEFDINIR Inactive AZITHROMYCIN 500 MG SOLR 1 po q day AZITHROMYCIN 500 MG SOLR 771689 AZITHROMYCIN Inactive AMOXICILLIN 500 MG CAPS 2 po BID x 10 days AMOXICILLIN 500 MG CAPS 206907 AMOXICILLIN Inactive PENICILLIN V POTASSIUM 500 MG TABS 1 pill by mouth three times daily PENICILLIN V POTASSIUM 500 MG TABS 571611 PENICILLIN V POTASSIUM Inactive Immunizations Vaccine Administration [...] Fluvirin, Fluarix, Agriflu(>=18 yo)) Fluzone (>3 yrs.) [GIK616] Influenza, seasonal, injectable pneumococcal immunization administered Pneumovax 23 [CVX33] pneumococcal polysaccharide vaccine, 23 valent Vital Signs Date Name Value Unit Range Description blood pressure, diastolic - 8462-4 67 mm[Hg] [...] HGBA1C - Chemistry sodium, serum 130 mmol/L 705-436 2397/06/09 potassium, serum 4.0 mmol/L 3.5-5.2 chloride, serum 92 mmol/L 98-107 carbon dioxide, venous blood 22.1 mmol/L 21.0-32.0 blood glucose 60 mg/dL 65-110 calcium, serum 9.5 mg/dL 8.5-10.1 urea nitrogen, blood 14 mg/dL 7-18 creatinine, serum 1.30 mg/dL 0.60-1.30 hemoglobin A1C, blood, as % of total hemoglobin 6.0 % 4.3-6.0 sodium, serum 131 mmol/L 459-663 4623/12/30 potassium, serum 5.0 mmol/L 3.5-5.2 chloride, serum 95 mmol/L 98-107 carbon dioxide, venous blood 26.7 mmol/L 21.0-32.0 blood glucose 112 mg/dL 65-110 calcium, serum 9.2 mg/dL 8.5-10.1 urea nitrogen, blood 12 mg/dL 7-18 creatinine, serum 1.10 mg/dL 0.60-1.30 hemoglobin A1C, blood, as % of total hemoglobin 5.8 % 4.3-6.0 Lab Report: Basic Metabolic Panel, HGBA1C, MICROALBUMIN - Chemistry sodium, serum 137 mmol/L 882-445 5372/05/19 potassium, serum 5.2 mmol/L 3.5-5.2 chloride, serum [...] Panel - Chemistry sodium, serum 127 mmol/L 822-033 9381/10/27 potassium, serum 4.1 mmol/L 3.5-5.2 chloride, serum 89 mmol/L 98-107 carbon dioxide, venous blood 27.4 mmol/L 21.0-32.0 blood glucose 100 mg/dL 65-110 urea nitrogen, blood 11 mg/dL 7-18 creatinine, serum 1.10 mg/dL 0.60-1.30 alanine aminotransferase (SGPT), serum 79 U/L 12- aspartate aminotransferase (SGOT), serum 38 U/L 15-37 alkaline phosphatase, serum 54 U/L 50-136 calcium, serum 9.0 mg/dL 8.5-10.1 bilirubin, serum, total 0.40 mg/dL 0.00-1.00 Lab Report: HGBA1C - Chemistry hemoglobin A1C, blood, as % of total hemoglobin 6.3 % 4.3-6.0 Lab Report: Lipid Panel, HEPATIC PANEL, MICROALBUMIN, CBC - Chemistry albumin/creatinine ratio, urine < 30 mg/g mg/g{creat} 0-29 cholesterol, serum 131 mg/dL 822-020 9203/06/03 triglyceride, serum, fasting 383 mg/dL 30-200 HDL [...] CBC - Lab microalbumin, urine 30 0-19 Office Visit: 6 mo f/u uroxatrol [...] mg/dL Encounters Code Encounter Date Provider Facility CPT-07649 Level 3 Est. Patient 09:34:56 CDT Alina Castaneda MD PhD [facility] CPT-37616 Level 3 Est. Patient 21:40:19 CDT Mima Erazo APRN [facility] CPT-66993 Level 3 Est. Patient 09:26:40 CDT Marvel Charles [facility] CPT-50647 Level 3 Est. Patient 12:36:43 CDT Vanessa Hickey MD [facility] CPT-59252 Level 3 Est. Patient 12:57:49 CDT Vanessa Hickey MD [facility] CPT-32825 Level 3 Est. Patient 00:28:25 CDT Alina Castaneda MD PhD [facility] CPT-93918 Level 2 Est. Patient 12:52:14 CDT Alina Castaneda MD [facility] CPT-84559 Level 3 Est. Patient 11:51:18 PROCESS SPECIALIST Alina Castaneda MD [facility] CPT-83047 Level 3 Est. Patient 10:09:22 PROCESS SPECIALIST Alina Castaneda MD PhD [facility] CPT-06678 Level 3 Est. Patient 14:36:26 PROCESS SPECIALIST Marvel Charles [facility] CPT-43367 Level 3 Est. Patient 13:34:47 PROCESS SPECIALIST Alina [id number] Level 3 Est. Patient 19:52:08 PROCESS SPECIALIST Alina Castaneda MD [facility] [id number] Level 3 Est. Patient 10:01:51 PROCESS SPECIALIST Marvel Araceli [facility]-16087 Level 3 Est. Patient 21:54:06 CDT Vanessa Hickey MD [facility]-85563 Level 3 Est. Patient 08:54:46 CDT Alina Castaneda MD [facility] [id number] Level 3 Est. Patient 09:32:11 CDT Marvel Charles [facility]-11857 Level 3 Est. Patient 12:02:49 CDT Alina Castaneda MD [facility] [id number] Level 3 Est. Patient 19:17:33 CDT Alina Castaneda MD [facility] 2001-45508 Level 3 Est. Patient 13:19:10 CDT Marvel Charles [facility]-27896 Level 3 Est. Patient 08:20:05 CDT Alina Castaneda MD [facility] 2001-37893 Level 3 Est. Patient 15:17:18 CDT Alina Castaneda MD [facility] [id number] Level 3 Est. Patient 14:25:36 PROCESS SPECIALIST Brooksjohn Charles [facility]-59108 Level 3 Est. Patient 10:09:15 PROCESS SPECIALIST Marvel Charles [facility]-09967 Level 3 Est. Patient 21:28:43 CDT Alina Castaneda MD [facility] [id number] Level 3 Est. Patient 15:20:11 CDT Zainnivia Charles [facility] CPT-48913 Level 4 Est. Patient 19:08:12 CDT Alina Castaneda MD [facility] 2001-46113 Level 3 Est. Patient 15:06:39 [facility] CPT-37245 Level 4 Est. Patient 17:48:15 CDT Alina Castaneda MD [facility] 2001-90969 Level 3 Est. Patient 14:53:49 CDT Alina Castaneda MD [facility] [id number] Level 3 Est. Patient 09:35:16 CDT Alina Castaneda MD [facility] 2001-12702 Level 3 Est. Patient 12:23:22 CDT Alina Castaneda MD [facility] 2001-45317 Level 3 Est. Patient 16:19:15 CDT Alina Castaneda MD [facility] [id number] Level 3 Est. Patient 21:39:56 PROCESS SPECIALIST Alina Castaneda MD [facility] [id number] Level 4 Est. Patient 14:12:56 PROCESS SPECIALIST Alina Castaneda MD [facility] 2001-72777 Level 2 Est. Patient 15:34:57 PROCESS SPECIALIST Alina Castaneda MD [facility] CPT-16001 Level 3 Est. Patient 12:17:04 PROCESS SPECIALIST Alina Castaneda MD [facility] [id number] Level 3 Est. Patient 09:18:18 PROCESS SPECIALIST Marvel Charles [facility] CPT-51885 Level 2 Est. Patient 21:50:24 CDT Alina Castaneda MD PhD [facility] CPT-92142 Level 3 Est. Patient 09:17:28 CDT Marvel Araceli [facility] CPT-51356 Level 4 Est. Patient 18:54:02 CDT Alina Castaneda MD [facility] CPT-00207 Level 3 Est. Patient 10:47:10 CDT Ailna Castaneda MD [facility] CPT-61506 Level 3 Est. Patient 09:22:20 CDT Marvel Araceli [facility] CPT-51908 Level 3 Est. Patient 16:39:43 CDT Marvel Araceli [facility] CPT-73626 Level 3 Est. Patient 16:05:16 CDT Alina Castaneda MD [facility] CPT-05660 Level 3 Est. Patient 00:29:15 CDT Alina Castaneda MD [facility] CPT-47534 Level 3 Est. Patient 10:49:22 PROCESS SPECIALIST Brooksjohn Charles [facility] CPT-12326 Level 3 Est. Patient 21:30:19 PROCESS SPECIALIST Alina Castaneda MD [facility] CPT-33533 Level 4 Est. Patient 17:04:11 PROCESS SPECIALIST Brookslashondanivia Araceli [facility] CPT-17699 Level 3 Est. Patient 15:34:11 PROCESS SPECIALIST Brookslashondanviia Araceli [facility] CPT-09447 Level 2 Est. Patient 12:51:58 PROCESS SPECIALIST Alina Castaneda MD [facility] CPT-61359 Level 3 Est. Patient 13:20:01 PROCESS SPECIALIST Alina Castaneda MD [facility] CPT-83310 Level 3 Est. Patient 09:23:35 CDT Alina Castaneda MD [facility] Procedures Code Procedure Name Date Entry Date Standard Description CPT-62005 Bladder Scan 12:36:44 CDT CPT-75068 Bladder Scan 21:54:06 CDT CPT-G0008 Administration of Influenza Virus Vaccine 13:05:26 CDT CPT-77852 Fluzone Quadrivalent Intramuscular Suspension 0.5 ML 13: 05:26 CDT CPT-39229 Administration single or combination vaccine inc oral 11 :49:51 CDT CPT-29448 Pneumovax 11:49:51 CDT CPT-04988 Ribs unilateral 2V 12:37:22 PROCESS SPECIALIST CPT-11056 Chest 2V Frontal and Lat 17:15:26 CDT CPT-09091 Abx/Therapy Injection 18:54:02 CDT CPT-J0696 Rocephin 1000 mg (Ceftriaxone) 16:00:32 CDT CPT-33325 Chest 2V Frontal and Lat 15:26:45 CDT CPT-04210 Chest 2V Frontal and Lat 10:23:27 CDT CPT-67576 Venipuncture Draw Fee 10:11:00 CDT CPT-05736 Administration single or combination vaccine inc oral 11 :56:38 CDT CPT-97969 Influenza split virus > age 3 11:56:38 CDT CPT-97310 Venipuncture Draw Fee 08:49:54 PROCESS SPECIALIST CPT-76138 EKG Trac and Interp 17:54:19 PROCESS SPECIALIST
--- OUTSIDE RECORDS SUMMARY | 2018-07-02 13:34 | XMS REPORT | Clinical Summary ---
Author Author Admin, TERELL Organization [facility] Address Unknown Phone Unavailable Allergies, Adverse 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 Erazo STAKING ENGINEER Benign paroxysmal positional vertigo Vertigo, benign paroxysmal position 386.11 Inactive Mima Erazo STAKING ENGINEER Benign paroxysmal positional vertigo High-risk sexual behavior V69.2 Active Alina Castaneda MD PhD High-risk sexual behavior Erectile dysfunction 302.72 Active Alina Castaneda MD PhD Psychosexual dysfunction with inhibited sexual excitement Constipation 564.00 Active Alina Castaneda MD PhD Constipation, unspecified Skin lesion 709.9 Active Alina Castaneda MD PhD Unspecified disorder of skin and subcutaneous tissue Malaise and fatigue 780.79 Active Cherelle Speaks STAKING ENGINEER Other malaise and fatigue Diarrhea 787.91 Active Cherelle Speaks STAKING ENGINEER Diarrhea PHARYNGITIS 462 Active Cherelle Speaks STAKING ENGINEER Acute pharyngitis Colitis 558.9 Active Mima Erazo STAKING ENGINEER Other and unspecified noninfectious gastroenteritis and colitis WOUND, OPEN, NOSE ICD-873.20 Inactive Alina Castaneda MD PhD DIABETES, TYPE 2 ICD-250.00 Inactive Alina Castaneda MD PhD HYPERTENSION ICD-401.9 Inactive Alina Castaneda MD PhD URI ICD-465.9 Inactive Alina Castaneda MD PhD CHEST PAIN ICD-786.50 Inactive Alina Castaneda MD PhD FH STROKE ICD-V17.1 Inactive Marvel Charles GARBAGE WORKER FATIGUE ICD-780.79 Inactive Alina Castaneda MD PhD [...] x 1 week then daily FLUTICASONE PROPIONATE 90248541894 Active Mima Erazo STAKING ENGINEER Active BD PEN NEEDLE MINI U/F 31G X 5 MM MISC 4 a day INSULIN PEN NEEDLE 77646132179 Active Marvel Mackenzieglestela GARBAGE WORKER Active AMITIZA 24 MCG ORAL CAPS Take one capsule BID for constipation LUBIPROSTONE 97485183980 Active Mima Erazo STAKING ENGINEER Active LEVEMIR FLEXTOUCH 100 UNIT/ML SC SOPN 75 units SQ each evening, for diabetes INSULIN DETEMIR 74559811625 Active CRYSTAL Rodrigues Active TRUEPLUS LANCETS 30G MISC 3 a day LANCETS 02497866260 Active Marvel MARROQUIN Active TOLTERODINE TARTRATE 2 MG TABS 1 pill twice daily, for bladder TOLTERODINE TARTRATE 21451128367 No Longer Active Vanessa Hickey MD Active AMITIZA 24 MCG ORAL CAPS Take one capsule BID for constipation. LUBIPROSTONE 37214742169 No Longer Active Vanessa Hickey MD Active LOMOTIL 2.5-0.025 MG ORAL TABS take 1-2 tabs PO after each stool, no more than 8 in 24 hours DIPHENOXYLATE-ATROPINE 17173000445 Active Grace Azam RMA Active FLUVOXAMINE MALEATE 100 MG ORAL TABS take one tab every AM et HS, and take 1/ 2 tab at noon FLUVOXAMINE MALEATE 15703395181 Active Grace Azam RMA Active METOPROLOL SUCCINATE 100 MG [id number] 1 by mouth daily for blood pressure METOPROLOL SUCCINATE 60229976953 No Longer Active Grace Azam RMA Active METFORMIN HCL ER 500 MG [id number]-MZO Take three tablets by mouth everyday METFORMIN HCL 86865951760 No Longer Active Grace Azam RMA Active LOVAZA 1 GM CAPS 4 daily (for triglycerides) OMEGA-3- ACID ETHYL ESTERS 14279475677 No Longer Active Grace Azam RMA Active TRAZODONE HCL 100 MG ORAL TABS 1 tab by mouth for sleep TRAZODONE HCL 71474994355 No Longer Active Grace Azam RMA Active NOVOFINE 32G X 6 MM MISC use one four times per day INSULIN PEN NEEDLE 22486762242 No Longer Active Grace Azam RMA Active BACTROBAN 2 % CREAM Apply to affected area BID for up to 10 days MUPIROCIN CALCIUM 46307390492 No Longer Active Grace Azam RMA Active ZOFRAN 4 MG TABS 1 po q4hr PRN [place] ONDANSETRON HCL 94603188169 Active Salina Ervinford RMA Active KEFLEX 500 MG CAP 1 po BID x 7 days CEPHALEXIN 07529405824 No Longer Active Cherelle Avila STAKING ENGINEER Active FLUVOXAMINE MALEATE 100 MG TABS Take one (1) tablet by mouth am, 1/2 at noon FLUVOXAMINE MALEATE 03724124002 No Longer Active Mima Erazo STAKING ENGINEER Active CORICIDIN HBP CONGESTION/COUGH 10-200 MG ORAL CAPS Take as directed on box as needed for cold/flu symptoms DEXTROMETHORPHAN-GUAIFENESIN 17581909214 Active Cherelle Avila STAKING ENGINEER Active OMEGA-3 300 MG ORAL CAPS 4 caps by mouth daily OMEGA-3 FATTY ACIDS 56067847255 Active Mima Erazo STAKING ENGINEER Active FLUVOXAMINE MALEATE 100 MG ORAL TABS Take 1/2 tab at noon FLUVOXAMINE MALEATE 83560969031 No Longer Active Cherelle Avila STAKING ENGINEER Active [facility] LUBRICANT EYE DROPS 0.4-0.3 % OPHTH SOLN POLYETHYL GLYCOL-PROPYL GLYCOL 97809311923 Active Mima Erazo STAKING ENGINEER Active CLONAZEPAM 1 MG TABS 1/2 pill by mouth three times daily CLONAZEPAM 50022377291 Active Alina Castaneda MD PhD Active MIRALAX POWD 17g by mouth daily, for constipation POLYETHYLENE GLYCOL 3350 12715953789 Active Alina Castaneda MD PhD Active HYDROCODONE-ACETAMINOPHEN 5-325 MG TABS 2 tabs by mouth three times daily for pain HYDROCODONE-ACETAMINOPHEN 51568721215 Active Mima Erazo STAKING ENGINEER Active HUMALOG KWIKPEN 100 UNIT/ML SC SOPN 20 units with breakfast, 10 units with lunch, 10 units with dinner, for diabetes INSULIN LISPRO (HUMAN ) 87164136883 Active Alina Castaneda MD PhD Active LATUDA 120 MG ORAL TABS 1 pill by mouth nightly LURASIDONE HCL 33724442120 Active Alina Casatneda MD PhD Active COLACE 100 MG CAPS 1 pill by mouth twice daily, for constipation DOCUSATE SODIUM 60415673760 Active Alina Castaneda MD PhD Active TRUETEST TEST STRP check blood sugars 3x/day GLUCOSE BLOOD 52042774939 Active Marvel MARROQUIN Active ACCU-CHEK ROSA UZMA Use device to check blood sugars BLOOD GLUCOSE MONITORING SUPPL 36239734395 No Longer Active Marvel MARROQUIN Active ACCU-CHEK ROSA INVITR STRP use strips with device to check blood sugars 3 times daily GLUCOSE BLOOD 33253909318 No Longer Active Marvel MARROQUIN Active VERAPAMIL HCL ER 180 MG ORAL CR-TABS 1 pill by mouth twice daily, for migraine prevention VERAPAMIL HCL 13731080596 Active Alina Castaneda MD PhD Active CYCLOBENZAPRINE HCL 10 MG TABS 1 tablet by mouth three times daily, scheduled CYCLOBENZAPRINE HCL 53514449893 No Longer Active Alina Castaneda MD PhD Active HUMALOG 100 UNIT/ML SOLN Take 20 units with breakfast, 10u with lunch and suppetr. INSULIN LISPRO (HUMAN) 10129266975 No Longer Active Alina Castaneda MD PhD Active TRUETEST TEST STRP check sugars 4x/day GLUCOSE BLOOD 01230027605 No Longer Active Alina Castaneda MD PhD Active MORPHINE SULFATE 30 MG TABS 1 pill by mouth twice daily, for pain MORPHINE SULFATE 18849770429 Active Mima Erazo STAKING ENGINEER Active ACYCLOVIR 400 MG ORAL TABS 1 pill three times daily x 5 days, for cold sore outbreak ACYCLOVIR 68346669120 No Longer Active Alina Castaneda MD PhD Active PENICILLIN V POTASSIUM 500 MG TABS 1 pill by mouth three times daily PENICILLIN V POTASSIUM 34398262298 No Longer Active Alina Castaneda MD PhD Active UROXATRAL 10 MG [id number] Take 1 tablet by mouth daily ALFUZOSIN HCL 45412670643 No Longer Active Alina Castaneda MD PhD Active THIOTHIXENE 5 MG CAPS by mouth twice a day THIOTHIXENE 89061833875 No Longer Active Alina Castaneda MD PhD Active ZYPREXA 7.5 MG TABS 1 at HS OLANZAPINE 17708433910 No Longer Active Alina Castaneda MD PhD Active BD INSULIN SYRINGE 28G X 1/2" 1 ML MISC 1 four times per day INSULIN SYRINGE-NEEDLE U-100 20381500807 Active Marvel MARROQUIN Active DETROL LA 4 MG SA84H-TAG Take 1 tablet by mouth daily TOLTERODINE TARTRATE 89278814773 No Longer Active Alina Castaneda MD PhD Active TERESE CONTOUR TEST STRP monitor blood sugars 3x/day GLUCOSE BLOOD 18705077758 No Longer Active Alina Castaneda MD PhD Active EQL TRUETEST TEST STRP Test blood sugar TID GLUCOSE BLOOD 08225781446 No Longer Active Alina Catsaneda MD PhD Active FLUTICASONE PROPIONATE 50 MCG/ACT SUSP 2 sprays each nostril qDay x 30 days FLUTICASONE PROPIONATE 34248051472 No Longer Active Alina Castaneda MD PhD Active IBUPROFEN 200 MG TABS 1 Q 6 hr. PRN IBUPROFEN 56762089654 No Longer Active Alina Castaneda MD PhD Active NIACIN ER 500 MG CR-TABS 4 qHS (for triglycerides) NIACIN 64231493053 No Longer Active Alina Castaneda MD PhD Active ALFUZOSIN HCL ER 10 MG RU43L-IZA 1 tablet daily ALFUZOSIN HCL 08231153024 Active Vanessa Hickey MD Active SAPHRIS 5 MG SUBL by mouth twice a day ASENAPINE MALEATE 55665629282 No Longer Active Marvel MARROQUIN Active ACETAMINOPHEN 500 MG TABS 2 Q 6 hr. PRN ACETAMINOPHEN 68600240345 No Longer Active Marvel MARROQUIN Active ORPHENADRINE CITRATE ER 100 MG [id number] 1 every 12 hr. as needed ORPHENADRINE CITRATE 84153090278 No Longer Active Alina Castaneda MD PhD Active NIACIN CR 500 MG CR-TABS 2 qHS NIACIN 85280724183 No Longer Active Alina Castaneda MD PhD Active AMOXICILLIN 500 MG CAPS 2 po BID x 10 days AMOXICILLIN 25372465574 No Longer Active Alina Castaneda MD PhD Active HYDROCODONE-ACETAMINOPHEN 7.5-325 MG TABS 1 four times a day as needed for pain HYDROCODONE-ACETAMINOPHEN 19744296610 No Longer Active Alina Castaneda MD PhD Active DOXEPIN HCL 10 MG CAPS Take 1 tablet by mouth daily DOXEPIN HCL 50260422107 No Longer Active Salina Han A Active NAVANE 10 MG CAPS 1/2 tablet twice a day THIOTHIXENE No Longer Active Salina Han A Active CYCLOBENZAPRINE HCL 10 MG TABS 1/2 tablet by mouth every 8 hours as needed for muscle spasms CYCLOBENZAPRINE HCL 88337689053 No Longer Active Alina Castaneda MD PhD Active BACTROBAN 2 % CREAM apply to ear and nose twice daily MUPIROCIN CALCIUM 96356787385 No Longer Active Alina Castaneda MD PhD Active HYDROCODONE-ACETAMINOPHEN 5-325 MG TABS take one tablet by mouth every four hours as needed for pain HYDROCODONE-ACETAMINOPHEN 87203442474 No Longer Active Alina Castaneda MD PhD Active ZOLPIDEM TARTRATE 10 MG TABS take at bedtime ZOLPIDEM TARTRATE 99323610201 Active Alina Castaneda MD PhD Active ZYPREXA 5 MG TABS take one tablet by mouth every evening OLANZAPINE 02347605017 No Longer Active Alina Castaneda MD PhD Active ALBUTEROL SULFATE 0.083 % NEBU SOLN one vial per nebulizer TID and PRN cough/ soa ALBUTEROL SULFATE 14941878294 No Longer Active Alina Castaneda MD PhD Active GUAIFENESIN 600 MG [id number] 1 tablet by mouth twice daily if needed for cough GUAIFENESIN 81047974107 No Longer Active Marvel MARROQUIN Active AZITHROMYCIN 500 MG SOLR 1 po q day AZITHROMYCIN 90248112358 No Longer Active Alina Castaneda MD PhD Active PROMETHAZINE-CODEINE 6.25-10 MG/5ML SYRP 1 tsp po q 6 hours prn cough PROMETHAZINE-CODEINE 97702866205 No Longer Active Alina Castaneda MD PhD Active CEFDINIR 300 MG CAPS by mouth twice a day CEFDINIR 22722022593 No Longer Active Alina Castaneda MD PhD Active METFORMIN HCL 500 MG MN02E-TUC Take 3 tablets by mouth everyday METFORMIN HCL 21864982766 No Longer Active Alina Castaneda MD PhD Active LEVEMIR 100 UNIT/ML SOLN 90 units SQ qHS INSULIN DETEMIR 64775854094 No Longer Active Marvel MARROQUIN Active TOPROL XL 100 MG MH57E-BSZ 1 @ HS METOPROLOL SUCCINATE 11997504454 No Longer Active Marvel MARROQUIN Active ALLOPURINOL 300 MG TABS Take one by mouth daily ALLOPURINOL 46737983049 Active Alina Castaneda MD PhD Active ZYPREXA 10 MG TABS Take one by mouth daily OLANZAPINE 67579789528 No Longer Active Alina Castaneda MD PhD Active NOVOLOG 100 UNIT/ML SOLN 40 units with every meal INSULIN ASPART 58539656727 No Longer Active Alina Castaneda MD PhD Active VERAPAMIL HCL CR 120 MG TAB CR 1 qPM VERAPAMIL HCL 03856868715 No Longer Active Slaina Emely ROJAS Active ZYPREXA 15 MG TABS Take 1 tablet by mouth daily OLANZAPINE 35305883126 No Longer Active Marvel MARROQUIN Active LISINOPRIL 20 MG TABS 1 BID LISINOPRIL 38043872822 Active Alina Castaneda MD PhD Active ALBUTEROL SULFATE (2.5 MG/3ML) 0.083% NEBU 1 neb tid and prn cough ALBUTEROL SULFATE 68839638593 No Longer Active Alina Castaneda MD PhD Active TRAVATAN Z 0.004 % SOLN 1 gtt each eye daily TRAVOPROST 26500997370 Active CRYSTAL Suarez Active LANTUS 100 UNIT/ML SOLN 60 units sq q hs INSULIN GLARGINE 79367491363 No Longer Active CRYSTAL Suarez Active ALBUTEROL SULFATE (2.5 MG/3ML) 0.083% NEBU 1 neb tid and prn cough ALBUTEROL SULFATE (2.5 MG/3ML) 0.083% NEBU 092164 ALBUTEROL SULFATE Inactive ZYPREXA 15 MG TABS Take 1 tablet by mouth daily ZYPREXA 15 MG TABS 437006 OLANZAPINE Inactive VERAPAMIL HCL CR 120 MG TAB CR 1 qPM VERAPAMIL HCL CR 120 MG TAB CR VERAPAMIL HCL Inactive ZYPREXA 10 MG TABS Take one by mouth daily ZYPREXA 10 MG TABS 781619 OLANZAPINE Inactive TOPROL XL 100 MG [id number]-WOL 1 @ HS TOPROL XL 100 MG VF53U-AOZ METOPROLOL SUCCINATE Inactive LEVEMIR 100 UNIT/ML SOLN 90 units SQ qHS LEVEMIR 100 UNIT/ML SOLN INSULIN DETEMIR Inactive PROMETHAZINE-CODEINE 6.25-10 MG/5ML SYRP 1 tsp po q 6 hours prn cough PROMETHAZINE-CODEINE 6.25-10 MG/5ML SYRP 715484 PROMETHAZINE- CODEINE Inactive GUAIFENESIN 600 MG [id number]-NSS 1 tablet by mouth twice daily if needed for cough GUAIFENESIN 600 MG LE99Q-YKH GUAIFENESIN Inactive ALBUTEROL SULFATE 0.083 % NEBU SOLN one vial per nebulizer TID and PRN cough/ soa ALBUTEROL SULFATE 0.083 % NEBU SOLN 285474 ALBUTEROL SULFATE Inactive ZYPREXA 5 MG TABS take one tablet by mouth every evening ZYPREXA 5 MG TABS 571621 OLANZAPINE Inactive HYDROCODONE-ACETAMINOPHEN 5-325 MG TABS take one tablet by mouth every four hours as needed for pain HYDROCODONE-ACETAMINOPHEN 5-325 MG TABS 562336 HYDROCODONE-ACETAMINOPHEN Inactive BACTROBAN 2 % CREAM apply to ear and nose twice daily BACTROBAN 2 % CREAM 111762 MUPIROCIN CALCIUM Inactive CYCLOBENZAPRINE HCL 10 MG TABS 1/2 tablet by mouth every 8 hours as needed for muscle spasms CYCLOBENZAPRINE HCL 10 MG TABS 414187 CYCLOBENZAPRINE HCL Inactive NAVANE 10 MG CAPS 1/2 tablet twice a day NAVANE 10 MG CAPS THIOTHIXENE Inactive DOXEPIN HCL 10 MG CAPS Take 1 tablet by mouth daily DOXEPIN HCL 10 MG CAPS 5837007 DOXEPIN HCL Inactive HYDROCODONE-ACETAMINOPHEN 7.5-325 MG TABS 1 four times a day as needed for pain HYDROCODONE-ACETAMINOPHEN 7.5-325 MG TABS 716793 HYDROCODONE-ACETAMINOPHEN Inactive NIACIN CR 500 MG CR-TABS 2 qHS NIACIN CR 500 MG CR- TABS NIACIN Inactive ORPHENADRINE CITRATE ER 100 MG [id number] 1 every 12 hr. as needed ORPHENADRINE CITRATE ER 100 MG [id number]-DCA ORPHENADRINE CITRATE Inactive ACETAMINOPHEN 500 MG TABS 2 Q 6 hr. PRN ACETAMINOPHEN 500 MG TABS 905078 ACETAMINOPHEN Inactive SAPHRIS 5 MG SUBL by mouth twice a day SAPHRIS 5 MG SUBL ASENAPINE MALEATE Inactive NIACIN ER 500 MG CR-TABS 4 qHS (for triglycerides) NIACIN ER 500 MG CR-TABS NIACIN Inactive IBUPROFEN 200 MG TABS 1 Q 6 hr. PRN IBUPROFEN 200 MG TABS 790948 IBUPROFEN Inactive FLUTICASONE PROPIONATE 50 MCG/ACT SUSP 2 sprays each nostril qDay x 30 days FLUTICASONE PROPIONATE 50 MCG/ACT SUSP 199747 FLUTICASONE PROPIONATE Inactive EQL TRUETEST TEST STRP Test blood sugar TID EQL TRUETEST TEST STRP GLUCOSE BLOOD Inactive TERESE CONTOUR TEST STRP monitor blood sugars 3x/day TERESE CONTOUR TEST STRP GLUCOSE BLOOD Inactive DETROL LA 4 MG [id number]-VZQ Take 1 tablet by mouth daily DETROL LA 4 MG [id number] TOLTERODINE TARTRATE Inactive ZYPREXA 7.5 MG TABS 1 at HS ZYPREXA 7.5 MG TABS 932737 OLANZAPINE Inactive THIOTHIXENE 5 MG CAPS by mouth twice a day THIOTHIXENE 5 MG CAPS 418067 THIOTHIXENE Inactive UROXATRAL 10 MG [id number]-RHY Take 1 tablet by mouth daily UROXATRAL 10 MG SC20S-ZEG ALFUZOSIN HCL Inactive ACYCLOVIR 400 MG ORAL TABS 1 pill three times daily x 5 days, for cold sore outbreak ACYCLOVIR 400 MG ORAL TABS 319871 ACYCLOVIR Inactive TRUETEST TEST STRP check sugars 4x/day TRUETEST TEST STRP GLUCOSE BLOOD Inactive HUMALOG 100 UNIT/ML SOLN Take 20 units with breakfast, 10u with lunch and suppetr. HUMALOG 100 UNIT/ML SOLN INSULIN LISPRO ( HUMAN) Inactive CYCLOBENZAPRINE HCL 10 MG TABS 1 tablet by mouth three times daily, scheduled CYCLOBENZAPRINE HCL 10 MG TABS 168878 CYCLOBENZAPRINE HCL Inactive ACCU-CHEK ROSA INVITR STRP use strips with device to check blood sugars 3 times daily ACCU-CHEK ROSA INVITR STRP GLUCOSE BLOOD Inactive ACCU-CHEK ROSA UZMA Use device to check blood sugars ACCU-CHEK ROSA UZMA BLOOD GLUCOSE MONITORING SUPPL Inactive FLUVOXAMINE MALEATE 100 MG ORAL TABS Take 1/2 tab at noon FLUVOXAMINE MALEATE 100 MG ORAL TABS 966590 FLUVOXAMINE MALEATE Inactive FLUVOXAMINE MALEATE 100 MG TABS Take one (1) tablet by mouth am, 1/2 at noon FLUVOXAMINE MALEATE 100 MG TABS 167167 FLUVOXAMINE MALEATE Inactive BACTROBAN 2 % CREAM Apply to affected area BID for up to 10 days BACTROBAN 2 % CREAM 781519 MUPIROCIN CALCIUM Inactive NOVOFINE 32G X 6 MM MISC use one four times per day NOVOFINE 32G X 6 MM MISC INSULIN PEN NEEDLE Inactive TRAZODONE HCL 100 MG ORAL TABS 1 tab by mouth for sleep TRAZODONE HCL 100 MG ORAL TABS 374780 TRAZODONE HCL Inactive LOVAZA 1 GM CAPS 4 daily (for triglycerides) LOVAZA 1 GM CAPS 649060 AEBUC-4-SKVW ETHYL ESTERS Inactive METFORMIN HCL ER 500 MG EF00U-ZHR Take three tablets by mouth everyday METFORMIN HCL ER 500 MG KK19C-ZBV METFORMIN HCL Inactive METOPROLOL SUCCINATE 100 MG JS21G-DND 1 by mouth daily for blood pressure METOPROLOL SUCCINATE 100 MG DH57D-SYM METOPROLOL SUCCINATE Inactive AMITIZA 24 MCG ORAL CAPS Take one capsule BID for constipation. AMITIZA 24 MCG ORAL CAPS LUBIPROSTONE Inactive TOLTERODINE TARTRATE 2 MG TABS 1 pill twice daily, for bladder TOLTERODINE TARTRATE 2 MG TABS 084487 TOLTERODINE TARTRATE Inactive CEFDINIR 300 MG CAPS by mouth twice a day CEFDINIR 300 MG CAPS 768645 CEFDINIR Inactive AZITHROMYCIN 500 MG SOLR 1 po q day AZITHROMYCIN 500 MG SOLR 90257809658 AZITHROMYCIN Inactive AMOXICILLIN 500 MG CAPS 2 po BID x 10 days AMOXICILLIN 500 MG CAPS 741196 AMOXICILLIN Inactive PENICILLIN V POTASSIUM 500 MG TABS 1 pill by mouth three times daily PENICILLIN V POTASSIUM 500 MG TABS 273361 PENICILLIN V POTASSIUM Inactive KEFLEX 500 MG CAP 1 po BID x 7 days KEFLEX 500 MG CAP 045263 CEPHALEXIN Inactive Immunizations Vaccine Administration Date Value [...] Fluvirin, Fluarix, Agriflu(>=18 yo)) Fluzone (>3 yrs.) [[id number]] Influenza, seasonal, injectable pneumococcal immunization administered Pneumovax [...] E&M - 3141-9 242.0 [lb_av] Weight Measured Diagnostic Results Date Name Value Unit Range Description Lab Report: CBC W/DIFF, Basic Metabolic Panel - Chemistry sodium, serum 137 mmol/L 872-465 4157/10/12 potassium, serum 4.8 mmol/L 3.5-5.2 chloride, serum 102 mmol/L 98-107 carbon dioxide, venous blood 27.6 mmol/L 21.0-32.0 blood glucose 168 mg/dL 65-110 calcium, serum 9.0 mg/dL 8.5-10.1 urea nitrogen, blood 15 mg/dL 7-18 creatinine, serum 1.04 mg/dL 0.55-1.30 sodium, serum 138 mmol/L 320-972 3556/11/11 potassium, serum 4.7 mmol/L 3.5-5.2 chloride, serum [...] % 11.6-14.8 platelet count 252 10^3/MM^3 10*3/mm3 710-978 2577/10/12 leukocyte count, blood 5.8 10^3/MM^3 10*3/mm3 4.6-10.2 [...] 240 10^3/MM^3 10*3/mm3 142-424 Lab Report: Chlamydia/GC APTIMA/24341, HIV-1/2 Agn/Dominga/80041, RPR (DX) W ... - Chemistry hepatitis B surface antigen NON-REACTIVE NON-REACTIVE Lab Report: Chlamydia/GC APTIMA/38168, HIV-1/2 Agn/Dominga/31787, RPR (DX) W ... - Lab chlamydia DNA probe NOT DETECTED NOT DETECTED Lab Report: Chlamydia/GC APTIMA/17622, HIV-1/2 Agn/Dominga/43719, RPR (DX) W ... - Microbiology Neisseria gonorrhoeae DNA probe NOT DETECTED NOT DETECTED Lab Report: Chlamydia/GC APTIMA/69524, HIV-1/2 Agn/Dominga/78044, RPR (DX) W ... - Serology rapid plasma reagin antibody titer NON-REACTIVE NON-REACTIVE Lab Report: HGBA1C - Chemistry hemoglobin A1C, blood, as % of total hemoglobin 6.1 % 4.3-6.0 hemoglobin A1C, blood, as % of total hemoglobin 6.3 % 4.3-6.0 Lab Report: Lipid Panel, HEPATIC PANEL, MICROALBUMIN, CBC - Chemistry cholesterol, serum 131 mg/dL 939-668 5099/06/03 bilirubin, serum, total 0.30 mg/dL 0.00-1.00 alanine aminotransferase (SGPT), serum 112 U/L 12-78 albumin/creatinine ratio, urine < 30 mg/g mg/g{creat} 0-29 aspartate aminotransferase (SGOT), serum 52 U/L 15-37 LDL cholesterol, serum 31 mg/dL 0-130 HDL cholesterol, serum 23 mg/dL 32-96 triglyceride, serum, fasting 383 mg/dL 30-200 Lab Report: Lipid Panel, HEPATIC PANEL, MICROALBUMIN, CBC - Hematology erythrocyte (RBC) count 4.96 10^6/MM^3 10*6/mm3 4.69-6.13 hemoglobin, blood 14.8 g/dL 13.5-17.5 hematocrit, blood 43.1 % 41.0-53.0 mean corpuscular volume, RBC 87 fL 80-97 mean corpuscular hemoglobin, RBC 29.8 pg 27.0-31.2 mean corpuscular hemoglobin concentration, RBC 34.3 G/DL % 31.8- 35.4 red blood cell distribution width 16.2 % 11.6-14.8 platelet count 239 10^3/MM^3 10*3/mm3 592-357 2149/06/03 leukocyte count, blood 7.3 10^3/MM^3 10*3/mm3 4.6-10.2 Lab Report: Lipid Panel, HEPATIC PANEL, MICROALBUMIN, CBC - Lab microalbumin, urine 30 0-19 Lab Report: Lipid Panel, Prostatic Specific Ag, MICROALBUMIN, Uric Acid - Chemistry albumin/creatinine ratio, urine < 30 mg/g mg/g{creat} 0-29 uric acid, serum 4.7 mg/dL 2.6-7.2 cholesterol, serum 142 mg/dL 868-663 0683/06/26 triglyceride, serum, fasting 272 mg/dL 30-200 HDL [...] strip Trace Negative bilirubin, urine Negative Negative pH, urine, semiquantitative 5.5 5.0-8.5 urine color Yellow Colorless;Lightyellow;Straw;Yellow appearance, urine Clear Clear specific gravity, urine 1.020 1.000-1.030 Office Visit: 1 month follow up retention [...] negative Encounters Code Encounter Date Provider Facility CPT-76486 Level 3 Est. Patient 14:39:00 CENTRIFUGAL CHILLER TECHNICIAN Vanessa Hickey MD [facility] CPT-74296 Level 2 Est. Patient 18:43:34 CDT Mima Erazo [facility] CPT-06514 Level 3 Est. Patient 16:22:09 CDT Cherelle Felixluciana [facility] CPT-32432 Level 4 Est. Patient 17:55:14 CDT Mima Erazo [facility] CPT-11213 Level 2 Est. Patient 17:13:21 CDT Alina Castaneda MD [facility] CPT-37746 Level 3 Est. Patient 14:46:15 CDT Vanessa Hickey MD [facility]-87884 Level 3 Est. Patient 09:34:56 CDT Alina Castaneda MD [facility]15785 Level 3 Est. Patient 21:40:19 CDT Mima Erazo [facility]-02590 Level 3 Est. Patient 09:26:40 CDT Marvel Charles [facility]-70370 Level 3 Est. Patient 12:36:43 CDT Vanessa Hickey MD [facility]-09715 Level 3 Est. Patient 12:57:49 CDT Vanessa Hickey MD [facility]-11389 Level 3 Est. Patient 00:28:25 CDT Alina Castaneda MD [facility]-80790 Level 2 Est. Patient 12:52:14 CDT Alina Castaneda MD [facility]-45016 Level 3 Est. Patient 11:51:18 CENTRIFUGAL CHILLER TECHNICIAN Alina Castaneda MD [facility]-80023 Level 3 Est. Patient 10:09:22 CENTRIFUGAL CHILLER TECHNICIAN Alina Castaneda MD [facility]-70842 Level 3 Est. Patient 14:36:26 CENTRIFUGAL CHILLER TECHNICIAN Marvel Charles [facility]-90111 Level 3 Est. Patient 13:34:47 CENTRIFUGAL CHILLER TECHNICIAN Alina Castaneda MD [facility]-14067 Level 3 Est. Patient 19:52:08 CENTRIFUGAL CHILLER TECHNICIAN Alina Castaneda MD [facility]90295 Level 3 Est. Patient 10:01:51 CENTRIFUGAL CHILLER TECHNICIAN Marvel Charles [facility]-69951 Level 3 Est. Patient 21:54:06 CDT Vanessa Hickey MD [facility]-92716 Level 3 Est. Patient 08:54:46 CDT Alina Castaneda MD [facility]-60108 Level 3 Est. Patient 09:32:11 CDT Marvel Charles [facility]-14722 Level 3 Est. Patient 12:02:49 CDT Alina Castaneda MD [facility]60203 Level 3 Est. Patient 19:17:33 CDT Alina Castaneda MD [facility]-01970 Level 3 Est. Patient 13:19:10 CDT Marvel Araceli [facility]-40989 Level 3 Est. Patient 08:20:05 CDT Alina Castaneda MD [facility]-44512 Level 3 Est. Patient 15:17:18 CDT Alina Castaneda MD [facility]-26417 Level 3 Est. Patient 14:25:36 CENTRIFUGAL CHILLER TECHNICIAN Marvel Charles [facility]-92777 Level 3 Est. Patient 10:09:15 CENTRIFUGAL CHILLER TECHNICIAN Marvel Thurstonestela [facility] CPT-56927 Level 3 Est. Patient 21:28:43 CDT Alina Castaneda MD [facility]-05742 Level 3 Est. Patient 15:20:11 [facility]-39176 Level 4 Est. Patient 19:08:12 CDT Alina Castaneda MD [facility]-22378 Level 3 Est. Patient 15:06:39 CDT Marvel Charles [facility] CPT-77064 Level 4 Est. Patient 17:48:15 CDT Alina Castaneda MD [facility]-44822 Level 3 Est. Patient 14:53:49 CDT Alina Castaneda MD [facility]-18779 Level 3 Est. Patient 09:35:16 CDT Alina Castaneda MD [facility]-86006 Level 3 Est. Patient 12:23:22 CDT Alina Castaneda MD [facility]-39439 Level 3 Est. Patient 16:19:15 CDT Alina Castaneda MD [facility]-30930 Level 3 Est. Patient 21:39:56 CENTRIFUGAL CHILLER TECHNICIAN Alina Castaneda MD [facility]-79077 Level 4 Est. Patient 14:12:56 CENTRIFUGAL CHILLER TECHNICIAN Alina Castaneda MD [facility]-86328 Level 2 Est. Patient 15:34:57 CENTRIFUGAL CHILLER TECHNICIAN Alina Castaneda MD [facility]-30076 Level 3 Est. Patient 12:17:04 CENTRIFUGAL CHILLER TECHNICIAN Alina Castaneda MD [facility]-67093 Level 3 Est. Patient 09:18:18 CENTRIFUGAL CHILLER TECHNICIAN [facility]-37671 Level 2 Est. Patient 21:50:24 CDT Alina Castaneda MD [facility]-69504 Level 3 Est. Patient 09:17:28 CDT [facility]-84742 Level 4 Est. Patient 18:54:02 CDT Alina Castaneda MD [facility]-25741 Level 3 Est. Patient 10:47:10 CDT Alina Castaneda MD [facility]-78720 Level 3 Est. Patient 09:22:20 CDT [facility]-24844 Level 3 Est. Patient 16:39:43 CDT [facility]-48002 Level 3 Est. Patient 16:05:16 CDT Alina Castaneda MD [facility]-57282 Level 3 Est. Patient 00:29:15 CDT Alina Castaneda MD [facility] CPT-55113 Level 3 Est. Patient 10:49:22 CENTRIFUGAL CHILLER TECHNICIAN Marvel Araceli [facility] CPT-05097 Level 3 Est. Patient 21:30:19 CENTRIFUGAL CHILLER TECHNICIAN Alina Castaneda MD [facility] CPT-04113 Level 4 Est. Patient 17:04:11 CENTRIFUGAL CHILLER TECHNICIAN Marvel Thurstonestela [facility] CPT-76936 Level 3 Est. Patient 15:34:11 CENTRIFUGAL CHILLER TECHNICIAN [place] Araceli [facility] CPT-12312 Level 2 Est. Patient 12:51:58 CENTRIFUGAL CHILLER TECHNICIAN Alina Castaneda MD [facility] CPT-75721 Level 3 Est. Patient 13:20:01 CENTRIFUGAL CHILLER TECHNICIAN Alina Castaneda MD [facility] CPT-02847 Level 3 Est. Patient 09:23:35 CDT Alina Castaneda MD [facility] Procedures Code Procedure Name Date Entry Date Standard Description CPT-71633 Bladder Scan 14:39:01 CENTRIFUGAL CHILLER TECHNICIAN CPT-TCMM Transitional Care Mgmt-Moderate 10:30:19 CENTRIFUGAL CHILLER TECHNICIAN CPT-96566 Bladder Scan 12:36:44 CDT CPT-41593 Bladder Scan 21:54:06 CDT CPT-G0008 Administration of Influenza Virus Vaccine 13:05:26 CDT CPT-16811 Fluzone Quadrivalent Intramuscular Suspension 0.5 ML 13: 05:26 CDT CPT-29933 Administration single or combination vaccine inc oral 11 :49:51 CDT CPT-15898 Pneumovax 11:49:51 CDT CPT-01316 Ribs unilateral 2V 12:37:22 CENTRIFUGAL CHILLER TECHNICIAN CPT-33741 Chest 2V Frontal and Lat 17:15:26 CDT CPT-77853 Abx/Therapy Injection 18:54:02 CDT CPT-J0696 Rocephin 1000 mg (Ceftriaxone) 16:00:32 CDT CPT-40464 Chest 2V Frontal and Lat 15:26:45 CDT CPT-42289 Chest 2V Frontal and Lat 10:23:27 CDT CPT-40193 Venipuncture Draw Fee 10:11:00 CDT CPT-89388 Administration single or combination vaccine inc oral 11 :56:38 CDT CPT-18341 Influenza split virus > age 3 11:56:38 CDT CPT-92564 Venipuncture Draw Fee 08:49:54 CENTRIFUGAL CHILLER TECHNICIAN CPT-67483 EKG Trac and Interp 17:54:19 CENTRIFUGAL CHILLER TECHNICIAN
--- OUTSIDE RECORDS SUMMARY | 2018-07-02 13:35 | XMS REPORT | Clinical Summary ---
Author Author Admin, TERELL Organization [facility] Address Unknown Phone Unavailable Allergies, Adverse [...] Diabetes mellitus, type II, uncontrolled 250.02 Active Marvel MARROQUIN Diabetes mellitus without mention [...] Diabetes mellitus, type II 250.00 Active Zainnivia Araceli MARROQUIN Diabetes mellitus without 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 Erazo APRN Benign paroxysmal positional vertigo Vertigo, benign paroxysmal position 386.11 Inactive Mima Erazo APRN Benign paroxysmal positional vertigo High-risk sexual behavior [...] Generic Name NDC Status Provider Patient Instruction HYDROCODONE-ACETAMINOPHEN 5-325 MG TABS 2 tabs by mouth three times daily for pain HYDROCODONE-ACETAMINOPHEN 25501211343 Active Alina Castaneda MD PhD Active HUMALOG KWIKPEN 100 UNIT/ML SC SOPN 20 units with breakfast, 10 units with lunch, 10 units with dinner, for diabetes INSULIN LISPRO (HUMAN ) 43866881196 Active Alina Castaneda MD PhD Active LEVEMIR FLEXTOUCH 100 UNIT/ML SC SOPN 70 units SQ each evening, for diabetes INSULIN DETEMIR 30115075625 Active Alina Castaneda MD PhD Active LATUDA 120 MG ORAL TABS 1 pill by mouth nightly LURASIDONE HCL 29076047256 Active Alina Castaneda MD PhD Active COLACE 100 MG CAPS 1 pill by mouth twice daily, for constipation DOCUSATE SODIUM 72148490249 Active Alina Castaneda MD PhD Active TRUETEST TEST STRP check blood sugars 3x/day GLUCOSE BLOOD 96022737342 Active Maljohn Ziglari ASSURANCE AUDITOR Active ACCU-CHEK ROSA UZMA Use device to check blood sugars BLOOD GLUCOSE MONITORING SUPPL 60781098561 No Longer Active [employer] Ziglari ASSURANCE AUDITOR Active ACCU-CHEK ROSA INVITR STRP use strips with device to check blood sugars 3 times daily GLUCOSE BLOOD 52871828200 No Longer Active [employer] 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 ASSURANCE AUDITOR Active VERAPAMIL HCL ER 180 MG ORAL CR-TABS 1 pill by mouth twice daily, for migraine prevention VERAPAMIL HCL 04106522557 Active Alina Castaneda MD PhD Active CYCLOBENZAPRINE HCL 10 MG TABS 1 tablet by mouth three times daily, scheduled CYCLOBENZAPRINE HCL 12689222860 No Longer Active Alina Castaneda MD PhD Active HUMALOG 100 UNIT/ML SOLN Take 20 units with breakfast, 10u with lunch and suppetr. INSULIN LISPRO (HUMAN) 43586519853 No Longer Active Alina Castaneda MD PhD Active TRUETEST TEST STRP check sugars 4x/day GLUCOSE BLOOD 91444969584 No Longer Active Alina Castaneda MD PhD Active MORPHINE SULFATE 30 MG TABS 1 pill by mouth twice daily, for pain MORPHINE SULFATE 89178686147 Active Alina Castaneda MD PhD Active ACYCLOVIR 400 MG ORAL TABS 1 pill three times daily x 5 days, for cold sore outbreak ACYCLOVIR 55520993835 No Longer Active Alina Castaneda MD PhD Active PENICILLIN V POTASSIUM 500 MG TABS 1 pill by mouth three times daily PENICILLIN V POTASSIUM 28672903638 No Longer Active Alina Castaneda MD PhD Active UROXATRAL 10 MG RU03X-JIM Take 1 tablet by mouth daily ALFUZOSIN HCL 59286229042 No Longer Active Alina Castaneda MD PhD Active THIOTHIXENE 5 MG CAPS by mouth twice a day THIOTHIXENE 81415824794 No Longer Active Alina Castaneda MD PhD Active ZYPREXA 7.5 MG TABS 1 at HS OLANZAPINE 97607091106 No Longer Active Alina Castaneda MD PhD Active BD INSULIN SYRINGE 28G X 1/2" 1 ML MISC 1 four times per day INSULIN SYRINGE-NEEDLE U-100 86926766799 Active Marvel Charles [facility] Active TOLTERODINE TARTRATE 2 MG TABS 1 pill twice daily, for bladder TOLTERODINE TARTRATE 13265352073 Active Alina Castaneda MD PhD Active DETROL LA 4 MG [id number] Take 1 tablet by mouth daily TOLTERODINE TARTRATE 81364689618 No Longer Active Alina Castaneda MD PhD Active TERESE CONTOUR TEST STRP monitor blood sugars 3x/day GLUCOSE BLOOD 96366816680 No Longer Active Alina Castaneda MD PhD Active EQL TRUETEST TEST STRP Test blood sugar TID GLUCOSE BLOOD 71317922436 No Longer Active Alina Castaneda MD PhD Active FLUTICASONE PROPIONATE 50 MCG/ACT SUSP 2 sprays each nostril qDay x 30 days FLUTICASONE PROPIONATE 04776533092 No Longer Active Alina Castaneda MD PhD Active IBUPROFEN 200 MG TABS 1 Q 6 hr. PRN IBUPROFEN 44888311905 No Longer Active Alina Castaneda MD PhD Active NIACIN ER 500 MG CR-TABS 4 qHS (for triglycerides) NIACIN 57693343569 No Longer Active Alina Castaneda MD PhD Active ALFUZOSIN HCL ER 10 MG [id number] 1 tablet daily ALFUZOSIN HCL 85505343248 Active Vanessa Hickey MD Active CLONAZEPAM 1 MG TABS 1 pill by mouth three times daily CLONAZEPAM 43835749496 Active Alina Castaneda MD PhD Active LOVAZA 1 GM CAPS 4 daily (for triglycerides) [id number] ETHYL ESTERS 64081988023 Active Alina Castaneda MD PhD Active SAPHRIS 5 MG SUBL by mouth twice a day ASENAPINE MALEATE 47009716777 No Longer Active Marvel MARROQUIN Active ACETAMINOPHEN 500 MG TABS 2 Q 6 hr. PRN ACETAMINOPHEN 55563372399 No Longer Active Marvel MARROQUIN Active ORPHENADRINE CITRATE ER 100 MG [id number] 1 every 12 hr. as needed ORPHENADRINE CITRATE 64718139299 No Longer Active Alina Castaneda MD PhD Active NIACIN CR 500 MG CR-TABS 2 qHS NIACIN 77519990910 No Longer Active Alina Castaneda MD PhD Active AMOXICILLIN 500 MG CAPS 2 po BID x 10 days AMOXICILLIN 33650563944 No Longer Active Alina Castaneda MD PhD Active HYDROCODONE-ACETAMINOPHEN 7.5-325 MG TABS 1 four times a day as needed for pain HYDROCODONE-ACETAMINOPHEN 56418133065 No Longer Active Alina Castaneda MD PhD Active METFORMIN HCL ER 500 MG [id number]-AAM Take three tablets by mouth everyday METFORMIN HCL 07914105409 Active Marvel Ziglari ASSURANCE AUDITOR Active DOXEPIN HCL 10 MG CAPS Take 1 tablet by mouth daily DOXEPIN HCL 90236147158 No Longer Active Salina Emely [facility] Active NAVANE 10 MG CAPS 1/2 tablet twice a day THIOTHIXENE No Longer Active Salina Han [facility] Active CYCLOBENZAPRINE HCL 10 MG TABS 1/2 tablet by mouth every 8 hours as needed for muscle spasms CYCLOBENZAPRINE HCL 30733037742 No Longer Active Alina Castaneda MD PhD Active BACTROBAN 2 % CREAM apply to ear and nose twice daily MUPIROCIN CALCIUM 30837625844 No Longer Active Alina Castaneda MD PhD Active HYDROCODONE-ACETAMINOPHEN 5-325 MG TABS take one tablet by mouth every four hours as needed for pain HYDROCODONE-ACETAMINOPHEN 83501887268 No Longer Active Alina Castaneda MD PhD Active ZOLPIDEM TARTRATE 10 MG TABS take at bedtime ZOLPIDEM TARTRATE 02683354658 Active Alina Castaneda MD PhD Active ZYPREXA 5 MG TABS take one tablet by mouth every evening OLANZAPINE 63345813628 No Longer Active Alina Castaneda MD PhD Active ALBUTEROL SULFATE 0.083 % NEBU SOLN one vial per nebulizer TID and PRN cough/ soa ALBUTEROL SULFATE 48743515689 No Longer Active Alina Castaneda MD PhD Active GUAIFENESIN 600 MG IG92C-SYQ 1 tablet by mouth twice daily if needed for cough GUAIFENESIN 49461694691 No Longer Active Marvel MENDOZAP Active AZITHROMYCIN 500 MG SOLR 1 po q day AZITHROMYCIN 84509667705 No Longer Active Alina Castaneda MD PhD Active METOPROLOL SUCCINATE 100 MG ET41C-VYD 1 by mouth daily for blood pressure METOPROLOL SUCCINATE 78189210545 Active Alina Castaneda MD PhD Active PROMETHAZINE-CODEINE 6.25-10 MG/5ML SYRP 1 tsp po q 6 hours prn cough PROMETHAZINE-CODEINE 70890948613 No Longer Active Alina Castaneda MD PhD Active CEFDINIR 300 MG CAPS by mouth twice a day CEFDINIR 06014552071 No Longer Active Alina Castaneda MD PhD Active METFORMIN HCL 500 MG SP82G-MXS Take 3 tablets by mouth everyday METFORMIN HCL 60057857685 No Longer Active Alina Castaneda MD PhD Active LEVEMIR 100 UNIT/ML SOLN 90 units SQ qHS INSULIN DETEMIR 33039408426 No Longer Active Marvel MARROQUIN Active TOPROL XL 100 MG [id number]-NTE 1 @ HS METOPROLOL SUCCINATE 90585297977 No Longer Active Marvel MARROQUIN Active ALLOPURINOL 300 MG TABS Take one by mouth daily ALLOPURINOL 23132082851 Active Alina Castaneda MD PhD Active ZYPREXA 10 MG TABS Take one by mouth daily OLANZAPINE 13658727821 No Longer Active Alina Castaneda MD PhD Active NOVOLOG 100 UNIT/ML SOLN 40 units with every meal INSULIN ASPART 06932685277 No Longer Active Alina Castaneda MD PhD Active VERAPAMIL HCL CR 120 MG TAB CR 1 qPM VERAPAMIL HCL 14882951802 No Longer Active Salina ROJAS Active ZYPREXA 15 MG TABS Take 1 tablet by mouth daily OLANZAPINE 92317912029 No Longer Active Marvel MARROQUIN Active LISINOPRIL 20 MG TABS 1 BID LISINOPRIL 02356365624 Active Alina Castaneda MD PhD Active ALBUTEROL SULFATE (2.5 MG/3ML) 0.083% NEBU 1 neb tid and prn cough ALBUTEROL SULFATE 29385944587 No Longer Active Alina Castaneda MD PhD Active FLUVOXAMINE MALEATE 100 MG TABS Take one (1) tablet by mouth am, 1/2 at noon, 1 pm FLUVOXAMINE MALEATE 77018081407 Active Alina Castaneda MD PhD Active TRAVATAN Z 0.004 % SOLN 1 gtt each eye daily TRAVOPROST 36205428755 Active Alina Andrea, RMA Active LANTUS 100 UNIT/ML SOLN 60 units sq q hs INSULIN GLARGINE 21864310151 No Longer Active Alina AndreaCRYSTAL Active ALBUTEROL SULFATE (2.5 MG/3ML) 0.083% NEBU 1 neb tid and prn cough ALBUTEROL SULFATE (2.5 MG/3ML) 0.083% NEBU 488820 ALBUTEROL SULFATE Inactive ZYPREXA 15 MG TABS Take 1 tablet by mouth daily ZYPREXA 15 MG TABS 224838 OLANZAPINE Inactive VERAPAMIL HCL CR 120 MG TAB CR 1 qPM VERAPAMIL HCL CR 120 MG TAB CR VERAPAMIL HCL Inactive ZYPREXA 10 MG TABS Take one by mouth daily ZYPREXA 10 MG TABS 329118 OLANZAPINE Inactive TOPROL XL 100 MG [id number] 1 @ HS TOPROL XL 100 MG DS08A-UQF METOPROLOL SUCCINATE Inactive LEVEMIR 100 UNIT/ML SOLN 90 units SQ qHS LEVEMIR 100 UNIT/ML SOLN INSULIN DETEMIR Inactive PROMETHAZINE-CODEINE 6.25-10 MG/5ML SYRP 1 tsp po q 6 hours prn cough PROMETHAZINE-CODEINE 6.25-10 MG/5ML SYRP 078543 PROMETHAZINE- CODEINE Inactive GUAIFENESIN 600 MG AD04L-CKC 1 tablet by mouth twice daily if needed for cough GUAIFENESIN 600 MG AD60W-KIE GUAIFENESIN Inactive ALBUTEROL SULFATE 0.083 % NEBU SOLN one vial per nebulizer TID and PRN cough/ soa ALBUTEROL SULFATE 0.083 % NEBU SOLN 635134 ALBUTEROL SULFATE Inactive ZYPREXA 5 MG TABS take one tablet by mouth every evening ZYPREXA 5 MG TABS 274889 OLANZAPINE Inactive HYDROCODONE-ACETAMINOPHEN 5-325 MG TABS take one tablet by mouth every four hours as needed for pain HYDROCODONE-ACETAMINOPHEN 5-325 MG TABS 852383 HYDROCODONE-ACETAMINOPHEN Inactive BACTROBAN 2 % CREAM apply to ear and nose twice daily BACTROBAN 2 % CREAM 241696 MUPIROCIN CALCIUM Inactive CYCLOBENZAPRINE HCL 10 MG TABS 1/2 tablet by mouth every 8 hours as needed for muscle spasms CYCLOBENZAPRINE HCL 10 MG TABS 441819 CYCLOBENZAPRINE HCL Inactive NAVANE 10 MG CAPS 1/2 tablet twice a day NAVANE 10 MG CAPS THIOTHIXENE Inactive DOXEPIN HCL 10 MG CAPS Take 1 tablet by mouth daily DOXEPIN HCL 10 MG CAPS 4284775 DOXEPIN HCL Inactive HYDROCODONE-ACETAMINOPHEN 7.5-325 MG TABS 1 four times a day as needed for pain HYDROCODONE-ACETAMINOPHEN 7.5-325 MG TABS 557888 HYDROCODONE-ACETAMINOPHEN Inactive NIACIN CR 500 MG CR-TABS 2 qHS NIACIN CR 500 MG CR- TABS NIACIN Inactive ORPHENADRINE CITRATE ER 100 MG [id number] 1 every 12 hr. as needed ORPHENADRINE CITRATE ER 100 MG [id number]-SDC ORPHENADRINE CITRATE Inactive ACETAMINOPHEN 500 MG TABS 2 Q 6 hr. PRN ACETAMINOPHEN 500 MG TABS 601343 ACETAMINOPHEN Inactive SAPHRIS 5 MG SUBL by mouth twice a day SAPHRIS 5 MG SUBL ASENAPINE MALEATE Inactive NIACIN ER 500 MG CR-TABS 4 qHS (for triglycerides) NIACIN ER 500 MG CR-TABS NIACIN Inactive IBUPROFEN 200 MG TABS 1 Q 6 hr. PRN IBUPROFEN 200 MG TABS 120315 IBUPROFEN Inactive FLUTICASONE PROPIONATE 50 MCG/ACT SUSP 2 sprays each nostril qDay x 30 days FLUTICASONE PROPIONATE 50 MCG/ACT SUSP 830090 FLUTICASONE PROPIONATE Inactive EQL TRUETEST TEST STRP Test blood sugar TID EQL TRUETEST TEST STRP GLUCOSE BLOOD Inactive TERESE CONTOUR TEST STRP monitor blood sugars 3x/day TEERSE CONTOUR TEST STRP GLUCOSE BLOOD Inactive DETROL LA 4 MG [id number] Take 1 tablet by mouth daily DETROL LA 4 MG [id number]-PGR TOLTERODINE TARTRATE Inactive ZYPREXA 7.5 MG TABS 1 at HS ZYPREXA 7.5 MG TABS 131952 OLANZAPINE Inactive THIOTHIXENE 5 MG CAPS by mouth twice a day THIOTHIXENE 5 MG CAPS 802410 THIOTHIXENE Inactive UROXATRAL 10 MG [id number]-HJC Take 1 tablet by mouth daily UROXATRAL 10 MG GB90Z-PKY ALFUZOSIN HCL Inactive ACYCLOVIR 400 MG ORAL TABS 1 pill three times daily x 5 days, for cold sore outbreak ACYCLOVIR 400 MG ORAL TABS 880630 ACYCLOVIR Inactive TRUETEST TEST STRP check sugars 4x/day TRUETEST TEST STRP GLUCOSE BLOOD Inactive HUMALOG 100 UNIT/ML SOLN Take 20 units with breakfast, 10u with lunch and suppetr. HUMALOG 100 UNIT/ML SOLN INSULIN LISPRO ( HUMAN) Inactive CYCLOBENZAPRINE HCL 10 MG TABS 1 tablet by mouth three times daily, scheduled CYCLOBENZAPRINE HCL 10 MG TABS 929978 CYCLOBENZAPRINE HCL Inactive ACCU-CHEK ROSA INVITR STRP use strips with device to check blood sugars 3 times daily ACCU-CHEK ROSA INVITR STRP GLUCOSE BLOOD Inactive ACCU-CHEK ROSA UZMA Use device to check blood sugars ACCU-CHEK ROSA UZMA BLOOD GLUCOSE MONITORING SUPPL Inactive CEFDINIR 300 MG CAPS by mouth twice a day CEFDINIR 300 MG CAPS 026056 CEFDINIR Inactive AZITHROMYCIN 500 MG SOLR 1 po q day AZITHROMYCIN 500 MG SOLR 717672 AZITHROMYCIN Inactive AMOXICILLIN 500 MG CAPS 2 po BID x 10 days AMOXICILLIN 500 MG CAPS 647668 AMOXICILLIN Inactive PENICILLIN V POTASSIUM 500 MG TABS 1 pill by mouth three times daily PENICILLIN V POTASSIUM 500 MG TABS 538550 PENICILLIN V POTASSIUM Inactive Immunizations Vaccine Administration [...] Fluvirin, Fluarix, Agriflu(>=18 yo)) Fluzone (>3 yrs.) [CQB580] Influenza, seasonal, injectable pneumococcal immunization administered Pneumovax [...] pressure, diastolic - 8462-4 72 mm[Hg] BP gracia blood pressure, systolic - 8480-6 120 mm[Hg] [...] HGBA1C - Chemistry sodium, serum 131 mmol/L 833-301 1477/12/30 potassium, serum 5.0 mmol/L 3.5-5.2 chloride, serum 95 mmol/L 98-107 carbon dioxide, venous blood 26.7 mmol/L 21.0-32.0 blood glucose 112 mg/dL 65-110 calcium, serum 9.2 mg/dL 8.5-10.1 urea nitrogen, blood 12 mg/dL 7-18 creatinine, serum 1.10 mg/dL 0.60-1.30 hemoglobin A1C, blood, as % of total hemoglobin 5.8 % 4.3-6.0 Lab Report: Basic Metabolic Panel, HGBA1C, MICROALBUMIN - Chemistry sodium, serum 137 mmol/L 353-887 3681/05/19 potassium, serum 5.2 mmol/L 3.5-5.2 chloride, serum [...] microalbumin, urine 10 0-19 Lab Report: Chlamydia/GC APTIMA/08344, HIV-1/2 Agn/Dominga/15822, RPR (DX) W ... - Chemistry hepatitis B surface antigen NON-REACTIVE NON-REACTIVE Lab Report: Chlamydia/GC APTIMA/70816, HIV-1/2 Agn/Dominga/04899, RPR (DX) W ... - Lab chlamydia DNA probe NOT DETECTED NOT DETECTED Lab Report: Chlamydia/GC APTIMA/01333, HIV-1/2 Agn/Dominga/30687, RPR (DX) W ... - Microbiology Neisseria gonorrhoeae DNA probe NOT DETECTED NOT DETECTED Lab Report: Chlamydia/GC APTIMA/72050, HIV-1/2 Agn/Dominga/09990, RPR (DX) W ... - Serology rapid plasma reagin antibody titer NON-REACTIVE NON-REACTIVE Lab Report: Comp. Metabolic Panel - Chemistry sodium, serum 127 mmol/L 765-020 6506/10/27 potassium, serum 4.1 mmol/L 3.5-5.2 chloride, serum [...] CBC - Chemistry cholesterol, serum 131 mg/dL 967-437 1297/06/03 triglyceride, serum, fasting 383 mg/dL 30-200 HDL [...] 4.7 mg/dL 2.6-7.2 cholesterol, serum 142 mg/dL 763-704 1804/06/26 triglyceride, serum, fasting 272 mg/dL 30-200 HDL [...] mg/dL Encounters Code Encounter Date Provider Facility CPT-95749 Level 3 Est. Patient 14:46:15 [facility]35213 Level 3 Est. Patient 09:34:56 CDT Alina Castaneda MD [facility]-46938 Level 3 Est. Patient 21:40:19 CDT Mima Erazo ALBAN [facility]-61511 Level 3 Est. Patient 09:26:40 CDT Marvel Charles [facility]-99607 Level 3 Est. Patient 12:36:43 CDT Vanessa Hickey MD [facility]-03213 Level 3 Est. Patient 12:57:49 CDT Vanessa Hickey MD [facility]-20995 Level 3 Est. Patient 00:28:25 CDT Alina Castaneda MD [facility]57980 Level 2 Est. Patient 12:52:14 CDT Alina Castaneda MD [facility]42402 Level 3 Est. Patient 11:51:18 BRICKMASON APPRENTICE Alina Castaneda MD [facility]-65321 Level 3 Est. Patient 10:09:22 BRICKMASON APPRENTICE Alina Castaneda MD [facility]80972 Level 3 Est. Patient 14:36:26 BRICKMASON APPRENTICE Marvel Charles [facility]-23684 Level 3 Est. Patient 13:34:47 BRICKMASON APPRENTICE Alina Castaneda MD [facility]-85300 Level 3 Est. Patient 19:52:08 BRICKMASON APPRENTICE Alina Castaneda MD [facility]-42361 Level 3 Est. Patient 10:01:51 BRICKMASON APPRENTICE Marvel Charles [facility]27778 Level 3 Est. Patient 21:54:06 CDT Vanessa Hickey MD [facility]-40075 Level 3 Est. Patient 08:54:46 CDT Alina Castaneda MD [facility]-43219 Level 3 Est. Patient 09:32:11 CDT Marvel Gurdeepajayestela [facility]-82634 Level 3 Est. Patient 12:02:49 CDT Alina Castaneda MD [facility]-24728 Level 3 Est. Patient 19:17:33 CDT Alina Castaneda MD [facility]96818 Level 3 Est. Patient 13:19:10 CDT Marvel Gurdeepajayestela [facility]-48849 Level 3 Est. Patient 08:20:05 CDT Alina Castaneda MD [facility]-04696 Level 3 Est. Patient 15:17:18 CDT Alina Castaneda MD [facility]-77876 Level 3 Est. Patient 14:25:36 BRICKMASON APPRENTICE [facility] 3 Est. Patient 10:09:15 BRICKMASON APPRENTICE Marvel Charles [facility]-83905 Level 3 Est. Patient 21:28:43 CDT Alina Castaneda MD [facility]-72639 Level 3 Est. Patient 15:20:11 CDT Marvel Araceli [facility]-25084 Level 4 Est. Patient 19:08:12 CDT Alina Castaneda MD [facility]-19768 Level 3 Est. Patient 15:06:39 CDT Marvel Charles [facility]-87888 Level 4 Est. Patient 17:48:15 CDT Alina Castaneda MD [facility]-76135 Level 3 Est. Patient 14:53:49 CDT Alina Castaneda MD [facility]-81553 Level 3 Est. Patient 09:35:16 CDT Alina Castaneda MD [facility]-20880 Level 3 Est. Patient 12:23:22 CDT Alina Cast[facility] MD [facility]03905 Level 3 Est. Patient 16:19:15 CDT Alina Castaneda MD [facility]-64329 Level 3 Est. Patient 21:39:56 BRICKMASON APPRENTICE Alina Castaneda MD [facility]-74505 Level 4 Est. Patient 14:12:56 BRICKMASON APPRENTICE Alina Castaneda MD [facility]-53253 Level 2 Est. Patient 15:34:57 BRICKMASON APPRENTICE Alina Castaneda MD [facility]-99207 Level 3 Est. Patient 12:17:04 BRICKMASON APPRENTICE Alina Castaneda MD [facility]-54635 Level 3 Est. Patient 09:18:18 BRICKMASON APPRENTICE Marvel Charles [facility]-78070 Level 2 Est. Patient 21:50:24 CDT Alina Castaneda MD [facility]-59553 Level 3 Est. Patient 09:17:28 CDT Marvel Charles [facility]-23081 Level 4 Est. Patient 18:54:02 CDT Alina Castaneda MD [facility]72556 Level 3 Est. Patient 10:47:10 CDT Alina Castaenda MD [facility]15837 Level 3 Est. Patient 09:22:20 CDT Marvel Charles [facility]-61012 Level 3 Est. Patient 16:39:43 [facility] Level 3 Est. Patient 16:05:16 CDT Alina Castaneda MD [facility] CPT-90593 Level 3 Est. Patient 00:29:15 CDT Alina Castaneda MD [facility] CPT-41597 Level 3 Est. Patient 10:49:22 BRICKMASON APPRENTICE Marvel Gurdeepajayestela [facility] CPT-52298 Level 3 Est. Patient 21:30:19 BRICKMASON APPRENTICE Alina Castaneda MD [facility] CPT-70502 Level 4 Est. Patient 17:04:11 BRICKMASON APPRENTICE [place] Gurdeepajayestela [facility] CPT-88243 Level 3 Est. Patient 15:34:11 BRICKMASON APPRENTICE [facility]-11453 Level 2 Est. Patient 12:51:58 BRICKMASON APPRENTICE Alina Castaneda MD [facility] CPT-09584 Level 3 Est. Patient 13:20:01 BRICKMASON APPRENTICE Alina Castaneda MD [facility] CPT-85424 Level 3 Est. Patient 09:23:35 CDT Alina Castaneda MD [facility] Procedures Code Procedure Name Date Entry Date Standard Description CPT-72266 Bladder Scan 12:36:44 CDT CPT-27819 Bladder Scan 21:54:06 CDT CPT-G0008 Administration of Influenza Virus Vaccine 13:05:26 CDT CPT-08974 Fluzone Quadrivalent Intramuscular Suspension 0.5 ML 13: 05:26 CDT CPT-75924 Administration single or combination vaccine inc oral 11 :49:51 CDT CPT-07754 Pneumovax 11:49:51 CDT CPT-99608 Ribs unilateral 2V 12:37:22 BRICKMASON APPRENTICE CPT-76802 Chest 2V Frontal and Lat 17:15:26 CDT CPT-42785 Abx/Therapy Injection 18:54:02 CDT CPT-J0696 Rocephin 1000 mg (Ceftriaxone) 16:00:32 CDT CPT-81649 Chest 2V Frontal and Lat 15:26:45 CDT CPT-02816 Chest 2V Frontal and Lat 10:23:27 CDT CPT-31830 Venipuncture Draw Fee 10:11:00 CDT CPT-39699 Administration single or combination vaccine inc oral 11 :56:38 CDT CPT-24791 Influenza split virus > age 3 11:56:38 CDT CPT-49497 Venipuncture Draw Fee 08:49:54 BRICKMASON APPRENTICE CPT-26504 EKG Trac and Interp 17:54:19 BRICKMASON APPRENTICE
--- OUTSIDE RECORDS SUMMARY | 2018-07-02 13:37 | XMS REPORT | Clinical Summary ---
Author Author Admin, TERELL Organization [facility] Address Unknown Phone Unavailable Allergies, 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 Kacey FRONT OFFICE SPECIALIST Benign paroxysmal positional vertigo Vertigo, benign paroxysmal position 386.11 Inactive Mima Kacey FRONT OFFICE SPECIALIST Benign paroxysmal positional vertigo High-risk sexual behavior [...] ACUTE ICD-466.0 Inactive Alina Castaneda MD PhD RIB PAIN, RIGHT SIDED ICD-786.50 Inactive Alina Castaneda MD PhD PNEUMONIA, ORGANISM UNSPECIFIED ICD-486 Inactive Alina Castaneda MD PhD DIABETIC HYPOGLYCEMIA, TYPE II ICD-250.80 Inactive Marvel 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 Inactive Alina Castaneda MD PhD SKIN LESION ICD-709.9 Roro Castaneda MD PhD SINUSITIS, ACUTE ICD-461.9 Inactive Alina Castaneda MD PhD Dizziness ICD-780.4 Inactive Alina Castaneda MD PhD Confusion ICD-298.9 Inactive Alina Castaneda MD PhD Open wound of tongue and floor of mouth, uncomplicated ICD-873.64 Roro Castaneda MD PhD Chest pain, atypical ICD-786.59 Roro Castaneda MD PhD Chest pain, atypical ICD-786.59 Roro Castaneda MD PhD SPECIAL SCREENING FOR MALIGNANT NEOPLASM OF PROSTATE ICD-V76.44 Rroo Castaneda MD PhD Hypoglycemia ICD-251.2 Roro Castaneda MD PhD Medication List Medication Instructions Start Date Stop Date Generic Name NDC Status Provider Patient Instruction HUMALOG 100 UNIT/ML SC SOLN 20u am , 10u lunch and supper INSULIN LISPRO (HUMAN) 98244281160 Active Marvel Araceli MARROQUIN Active LATUDA 120 MG ORAL TABS 1 pill by mouth nightly LURASIDONE HCL 03970191976 Active Alina Castaneda MD PhD Active COLACE 100 MG CAPS 1 pill by mouth twice daily, for constipation DOCUSATE SODIUM 29768398783 Active Alina Castaneda MD PhD Active TRUETEST TEST STRP check blood sugars 3x/day GLUCOSE BLOOD 71168809883 Active Malnivia 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 TOOTH CUTTER SPUR Active ACCU-CHEK ROSA UZMA Use device to check blood sugars BLOOD GLUCOSE MONITORING SUPPL 38349628626 No Longer Active Marvel 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 TOOTH CUTTER SPUR Active ACCU-CHEK ROSA INVITR STRP use strips with device to check blood sugars 3 times daily GLUCOSE BLOOD 93062752947 No Longer Active Brooksnivia Araceli MENDOZAP Active VERAPAMIL HCL ER 180 MG ORAL CR-TABS 1 pill by mouth twice daily, for migraine prevention VERAPAMIL HCL 67723548869 Active Alina Castaneda MD PhD Active CYCLOBENZAPRINE HCL 10 MG TABS 1 tablet by mouth three times daily, scheduled CYCLOBENZAPRINE HCL 82786629151 No Longer Active Alina Castaneda MD PhD Active HUMALOG 100 UNIT/ML SOLN Take 20 units with breakfast, 10u with lunch and suppetr. INSULIN LISPRO (HUMAN) 82445073039 No Longer Active Alina Castaneda MD PhD Active TRUETEST TEST STRP check sugars 4x/day GLUCOSE BLOOD 42688572263 No Longer Active Alina Castaneda MD PhD Active MORPHINE SULFATE 30 MG TABS 1 pill by mouth twice daily, for pain MORPHINE SULFATE 72750532107 Active Mason Loredo MD Active ACYCLOVIR 400 MG ORAL TABS 1 pill three times daily x 5 days, for cold sore outbreak ACYCLOVIR 36515555305 No Longer Active Alina Castaneda MD PhD Active PENICILLIN V POTASSIUM 500 MG TABS 1 pill by mouth three times daily PENICILLIN V POTASSIUM 38191177486 No Longer Active Alina Castaneda MD PhD Active UROXATRAL 10 MG [id number]-PRS Take 1 tablet by mouth daily ALFUZOSIN HCL 30513702546 No Longer Active Alina Castaneda MD PhD Active THIOTHIXENE 5 MG CAPS by mouth twice a day THIOTHIXENE 81245014782 No Longer Active Alina Castaneda MD PhD Active ZYPREXA 7.5 MG TABS 1 at HS OLANZAPINE 35370115961 No Longer Active Alina Castaneda MD PhD Active LEVEMIR 100 UNIT/ML SOLN Take 70 u at 7-8pm INSULIN DETEMIR 32651434924 Active Mallashondaeh Ziglari TOOTH CUTTER SPUR Active BD INSULIN SYRINGE 28G X 1/2" 1 ML MISC 1 four times per day INSULIN SYRINGE-NEEDLE U-100 07051127597 Active Maljohn Mackenzieglari TOOTH CUTTER SPUR Active TOLTERODINE TARTRATE 2 MG TABS 1 pill twice daily, for bladder TOLTERODINE TARTRATE 59831170621 Active Alina Castaneda MD PhD Active DETROL LA 4 MG [id number]-UQL Take 1 tablet by mouth daily TOLTERODINE TARTRATE 86135548186 No Longer Active Alina Castaneda MD PhD Active HYDROCODONE-ACETAMINOPHEN 5-325 MG TABS 2 tabs by mouth three times daily as needed for pain HYDROCODONE-ACETAMINOPHEN 02257429905 Active Alina Castaneda MD PhD Active TERESE CONTOUR TEST STRP monitor blood sugars 3x/day GLUCOSE BLOOD 98131717050 No Longer Active Alina Castaneda MD PhD Active EQL TRUETEST TEST STRP Test blood sugar TID GLUCOSE BLOOD 92733473914 No Longer Active Alina Castaneda MD PhD Active FLUTICASONE PROPIONATE 50 MCG/ACT SUSP 2 sprays each nostril qDay x 30 days FLUTICASONE PROPIONATE 45277916363 No Longer Active Alina Castaneda MD PhD Active IBUPROFEN 200 MG TABS 1 Q 6 hr. PRN IBUPROFEN 40164266514 No Longer Active Alina Castaneda MD PhD Active NIACIN ER 500 MG CR-TABS 4 qHS (for triglycerides) NIACIN 18224093049 No Longer Active Alina Castaneda MD PhD Active ALFUZOSIN HCL ER 10 MG [id number] 1 tablet daily ALFUZOSIN HCL 06627036599 Active Vanessa Hickey MD Active CLONAZEPAM 1 MG TABS 1 pill by mouth three times daily CLONAZEPAM 39263451667 Active Alina Castaneda MD PhD Active LOVAZA 1 GM CAPS 4 daily (for triglycerides) [id number] ETHYL ESTERS 01920644949 Active Alina Castaneda MD PhD Active SAPHRIS 5 MG SUBL by mouth twice a day ASENAPINE MALEATE 53930803422 No Longer Active Marvel MARROQUIN Active ACETAMINOPHEN 500 MG TABS 2 Q 6 hr. PRN ACETAMINOPHEN 26517581701 No Longer Active Marvel MARROQUIN Active ORPHENADRINE CITRATE ER 100 MG EC15U-HBL 1 every 12 hr. as needed ORPHENADRINE CITRATE 70631729113 No Longer Active Alina Castaneda MD PhD Active NIACIN CR 500 MG CR-TABS 2 qHS NIACIN 81692047881 No Longer Active Alina Castaneda MD PhD Active AMOXICILLIN 500 MG CAPS 2 po BID x 10 days AMOXICILLIN 12158446883 No Longer Active Alina Castaneda MD PhD Active HYDROCODONE-ACETAMINOPHEN 7.5-325 MG TABS 1 four times a day as needed for pain HYDROCODONE-ACETAMINOPHEN 98172458534 No Longer Active Alina Castaneda MD PhD Active METFORMIN HCL ER 500 MG HH11H-ELA Take three tablets by mouth everyday METFORMIN HCL 97102192166 Active Marvel MENDOZAP Active DOXEPIN HCL 10 MG CAPS Take 1 tablet by mouth daily DOXEPIN HCL 02176469931 No Longer Active Salina Han RMA Active NAVANE 10 MG CAPS 1/2 tablet twice a day THIOTHIXENE No Longer Active Salina Han RMA Active CYCLOBENZAPRINE HCL 10 MG TABS 1/2 tablet by mouth every 8 hours as needed for muscle spasms CYCLOBENZAPRINE HCL 67853007434 No Longer Active Alina Castaneda MD PhD Active BACTROBAN 2 % CREAM apply to ear and nose twice daily MUPIROCIN CALCIUM 67093212557 No Longer Active Alina Castaneda MD PhD Active HYDROCODONE-ACETAMINOPHEN 5-325 MG TABS take one tablet by mouth every four hours as needed for pain HYDROCODONE-ACETAMINOPHEN 99859835273 No Longer Active Alina Castaneda MD PhD Active ZOLPIDEM TARTRATE 10 MG TABS take at bedtime ZOLPIDEM TARTRATE 26607232544 Active Alina Castaneda MD PhD Active ZYPREXA 5 MG TABS take one tablet by mouth every evening OLANZAPINE 17154840415 No Longer Active Alina Castaneda MD PhD Active ALBUTEROL SULFATE 0.083 % NEBU SOLN one vial per nebulizer TID and PRN cough/ soa ALBUTEROL SULFATE 31408904857 No Longer Active Alina Castaneda MD PhD Active GUAIFENESIN 600 MG PD41Y-PYO 1 tablet by mouth twice daily if needed for cough GUAIFENESIN 20019573859 No Longer Active Marvel MENDOZAP Active AZITHROMYCIN 500 MG SOLR 1 po q day AZITHROMYCIN 48327628050 No Longer Active Alina Castaneda MD PhD Active METOPROLOL SUCCINATE 100 MG GS83S-YKK 1 by mouth daily for blood pressure METOPROLOL SUCCINATE 53266868197 Active Alina Castaneda MD PhD Active PROMETHAZINE-CODEINE 6.25-10 MG/5ML SYRP 1 tsp po q 6 hours prn cough PROMETHAZINE-CODEINE 27779550597 No Longer Active Alina Castaneda MD PhD Active CEFDINIR 300 MG CAPS by mouth twice a day CEFDINIR 21697223285 No Longer Active Alina Castaneda MD PhD Active METFORMIN HCL 500 MG BE79O-RMR Take 3 tablets by mouth everyday METFORMIN HCL 93682073232 No Longer Active Alina Castaneda MD PhD Active LEVEMIR 100 UNIT/ML SOLN 90 units SQ qHS INSULIN DETEMIR 01117485205 No Longer Active Marvel MARROQUIN Active TOPROL XL 100 MG LK94V-JAF 1 @ HS METOPROLOL SUCCINATE 67586744178 No Longer Active Marvel MARROQUIN Active ALLOPURINOL 300 MG TABS Take one by mouth daily ALLOPURINOL 32641457084 Active Alina Castaneda MD PhD Active ZYPREXA 10 MG TABS Take one by mouth daily OLANZAPINE 21621725964 No Longer Active Alina Castaneda MD PhD Active NOVOLOG 100 UNIT/ML SOLN 40 units with every meal INSULIN ASPART 04180457061 No Longer Active Alina Castaneda MD PhD Active VERAPAMIL HCL CR 120 MG TAB CR 1 qPM VERAPAMIL HCL 16588311075 No Longer Active Salina Han A Active ZYPREXA 15 MG TABS Take 1 tablet by mouth daily OLANZAPINE 52689622587 No Longer Active Brooksjohn MARROQUIN Active LISINOPRIL 20 MG TABS 1 BID LISINOPRIL 15671083994 Active Alina Castaneda MD PhD Active ALBUTEROL SULFATE (2.5 MG/3ML) 0.083% NEBU 1 neb tid and prn cough ALBUTEROL SULFATE 58913469978 No Longer Active Alina Castaneda MD PhD Active FLUVOXAMINE MALEATE 100 MG TABS Take one (1) tablet by mouth am, 1/2 at noon, 1 pm FLUVOXAMINE MALEATE 15297175660 Active Alina Castaneda MD PhD Active TRAVATAN Z 0.004 % SOLN 1 gtt each eye daily TRAVOPROST 42971259187 Active CRYSTAL Suarez Active LANTUS 100 UNIT/ML SOLN 60 units sq q hs INSULIN GLARGINE 02899311612 No Longer Active CRYSTAL Suarez Active ALBUTEROL SULFATE (2.5 MG/3ML) 0.083% NEBU 1 neb tid and prn cough ALBUTEROL SULFATE (2.5 MG/3ML) 0.083% NEBU 970184 ALBUTEROL SULFATE Inactive ZYPREXA 15 MG TABS Take 1 tablet by mouth daily ZYPREXA 15 MG TABS 290282 OLANZAPINE Inactive VERAPAMIL HCL CR 120 MG TAB CR 1 qPM VERAPAMIL HCL CR 120 MG TAB CR VERAPAMIL HCL Inactive ZYPREXA 10 MG TABS Take one by mouth daily ZYPREXA 10 MG TABS 956058 OLANZAPINE Inactive TOPROL XL 100 MG RO50A-VER 1 @ HS TOPROL XL 100 MG XP27I-FMA METOPROLOL SUCCINATE Inactive LEVEMIR 100 UNIT/ML SOLN 90 units SQ qHS LEVEMIR 100 UNIT/ML SOLN INSULIN DETEMIR Inactive PROMETHAZINE-CODEINE 6.25-10 MG/5ML SYRP 1 tsp po q 6 hours prn cough PROMETHAZINE-CODEINE 6.25-10 MG/5ML SYRP 396548 PROMETHAZINE- CODEINE Inactive GUAIFENESIN 600 MG YU60B-AIN 1 tablet by mouth twice daily if needed for cough GUAIFENESIN 600 MG QG72K-CXX GUAIFENESIN Inactive ALBUTEROL SULFATE 0.083 % NEBU SOLN one vial per nebulizer TID and PRN cough/ soa ALBUTEROL SULFATE 0.083 % NEBU SOLN 516458 ALBUTEROL SULFATE Inactive ZYPREXA 5 MG TABS take one tablet by mouth every evening ZYPREXA 5 MG TABS 984544 OLANZAPINE Inactive HYDROCODONE-ACETAMINOPHEN 5-325 MG TABS take one tablet by mouth every four hours as needed for pain HYDROCODONE-ACETAMINOPHEN 5-325 MG TABS 942888 HYDROCODONE-ACETAMINOPHEN Inactive BACTROBAN 2 % CREAM apply to ear and nose twice daily BACTROBAN 2 % CREAM 061069 MUPIROCIN CALCIUM Inactive CYCLOBENZAPRINE HCL 10 MG TABS 1/2 tablet by mouth every 8 hours as needed for muscle spasms CYCLOBENZAPRINE HCL 10 MG TABS 933257 CYCLOBENZAPRINE HCL Inactive NAVANE 10 MG CAPS 1/2 tablet twice a day NAVANE 10 MG CAPS THIOTHIXENE Inactive DOXEPIN HCL 10 MG CAPS Take 1 tablet by mouth daily DOXEPIN HCL 10 MG CAPS 0477960 DOXEPIN HCL Inactive HYDROCODONE-ACETAMINOPHEN 7.5-325 MG TABS 1 four times a day as needed for pain HYDROCODONE-ACETAMINOPHEN 7.5-325 MG TABS 513965 HYDROCODONE-ACETAMINOPHEN Inactive NIACIN CR 500 MG CR-TABS 2 qHS NIACIN CR 500 MG CR- TABS NIACIN Inactive ORPHENADRINE CITRATE ER 100 MG [id number] 1 every 12 hr. as needed ORPHENADRINE CITRATE ER 100 MG [id number]-AKL ORPHENADRINE CITRATE Inactive ACETAMINOPHEN 500 MG TABS 2 Q 6 hr. PRN ACETAMINOPHEN 500 MG TABS 552822 ACETAMINOPHEN Inactive SAPHRIS 5 MG SUBL by mouth twice a day SAPHRIS 5 MG SUBL ASENAPINE MALEATE Inactive NIACIN ER 500 MG CR-TABS 4 qHS (for triglycerides) NIACIN ER 500 MG CR-TABS NIACIN Inactive IBUPROFEN 200 MG TABS 1 Q 6 hr. PRN IBUPROFEN 200 MG TABS 181216 IBUPROFEN Inactive FLUTICASONE PROPIONATE 50 MCG/ACT SUSP 2 sprays each nostril qDay x 30 days FLUTICASONE PROPIONATE 50 MCG/ACT SUSP 085438 FLUTICASONE PROPIONATE Inactive EQL TRUETEST TEST STRP Test blood sugar TID EQL TRUETEST TEST STRP GLUCOSE BLOOD Inactive TERESE CONTOUR TEST STRP monitor blood sugars 3x/day TERESE CONTOUR TEST STRP GLUCOSE BLOOD Inactive DETROL LA 4 MG VE80M-RXR Take 1 tablet by mouth daily DETROL LA 4 MG RH66Y-RHE TOLTERODINE TARTRATE Inactive ZYPREXA 7.5 MG TABS 1 at HS ZYPREXA 7.5 MG TABS 506730 OLANZAPINE Inactive THIOTHIXENE 5 MG CAPS by mouth twice a day THIOTHIXENE 5 MG CAPS 305052 THIOTHIXENE Inactive UROXATRAL 10 MG MV45F-KWL Take 1 tablet by mouth daily UROXATRAL 10 MG KT79Q-OVF ALFUZOSIN HCL Inactive ACYCLOVIR 400 MG ORAL TABS 1 pill three times daily x 5 days, for cold sore outbreak ACYCLOVIR 400 MG ORAL TABS 841567 ACYCLOVIR Inactive TRUETEST TEST STRP check sugars 4x/day TRUETEST TEST STRP GLUCOSE BLOOD Inactive HUMALOG 100 UNIT/ML SOLN Take 20 units with breakfast, 10u with lunch and suppetr. HUMALOG 100 UNIT/ML SOLN INSULIN LISPRO ( HUMAN) Inactive CYCLOBENZAPRINE HCL 10 MG TABS 1 tablet by mouth three times daily, scheduled CYCLOBENZAPRINE HCL 10 MG TABS 385370 CYCLOBENZAPRINE HCL Inactive ACCU-CHEK ROSA INVITR STRP use strips with device to check blood sugars 3 times daily ACCU-CHEK ROSA INVITR STRP GLUCOSE BLOOD Inactive ACCU-CHEK ROSA UZMA Use device to check blood sugars ACCU-CHEK ROSA UZMA BLOOD GLUCOSE MONITORING SUPPL Inactive CEFDINIR 300 MG CAPS by mouth twice a day CEFDINIR 300 MG CAPS 329111 CEFDINIR Inactive AZITHROMYCIN 500 MG SOLR 1 po q day AZITHROMYCIN 500 MG SOLR 062874 AZITHROMYCIN Inactive AMOXICILLIN 500 MG CAPS 2 po BID x 10 days AMOXICILLIN 500 MG CAPS 756366 AMOXICILLIN Inactive PENICILLIN V POTASSIUM 500 MG TABS 1 pill by mouth three times daily PENICILLIN V POTASSIUM 500 MG TABS 605201 PENICILLIN V POTASSIUM Inactive Immunizations Vaccine Administration [...] Fluvirin, Fluarix, Agriflu(>=18 yo)) Fluzone (>3 yrs.) [[id number]] Influenza, seasonal, injectable pneumococcal immunization administered Pneumovax [...] HGBA1C - Chemistry sodium, serum 130 mmol/L 050-149 1734/06/09 potassium, serum 4.0 mmol/L 3.5-5.2 chloride, serum 92 mmol/L 98-107 carbon dioxide, venous blood 22.1 mmol/L 21.0-32.0 blood glucose 60 mg/dL 65-110 calcium, serum 9.5 mg/dL 8.5-10.1 urea nitrogen, blood 14 mg/dL 7-18 creatinine, serum 1.30 mg/dL 0.60-1.30 hemoglobin A1C, blood, as % of total hemoglobin 6.0 % 4.3-6.0 sodium, serum 131 mmol/L 992-738 5972/12/30 potassium, serum 5.0 mmol/L 3.5-5.2 chloride, serum 95 mmol/L 98-107 carbon dioxide, venous blood 26.7 mmol/L 21.0-32.0 blood glucose 112 mg/dL 65-110 calcium, serum 9.2 mg/dL 8.5-10.1 urea nitrogen, blood 12 mg/dL 7-18 creatinine, serum 1.10 mg/dL 0.60-1.30 hemoglobin A1C, blood, as % of total hemoglobin 5.8 % 4.3-6.0 Lab Report: Basic Metabolic Panel, HGBA1C, MICROALBUMIN - Chemistry sodium, serum 137 mmol/L 887-106 3837/05/19 potassium, serum 5.2 mmol/L 3.5-5.2 chloride, serum [...] microalbumin, urine 10 0-19 Lab Report: Chlamydia/GC APTIMA/99463, HIV-1/2 Agn/Dominga/90967, RPR (DX) W ... - Chemistry hepatitis B surface antigen NON-REACTIVE NON-REACTIVE Lab Report: Chlamydia/GC APTIMA/04700, HIV-1/2 Agn/Dominga/20636, RPR (DX) W ... - Lab chlamydia DNA probe NOT DETECTED NOT DETECTED Lab Report: Chlamydia/GC APTIMA/74930, HIV-1/2 Agn/Dominga/81436, RPR (DX) W ... - Microbiology Neisseria gonorrhoeae DNA probe NOT DETECTED NOT DETECTED Lab Report: Chlamydia/GC APTIMA/44235, HIV-1/2 Agn/Dominga/47298, RPR (DX) W ... - Serology rapid plasma reagin antibody titer NON-REACTIVE NON-REACTIVE Lab Report: Comp. Metabolic Panel - Chemistry sodium, serum 127 mmol/L 542-528 4648/10/27 potassium, serum 4.1 mmol/L 3.5-5.2 chloride, serum [...] mg/g mg/g{creat} 0-29 cholesterol, serum 131 mg/dL 171-606 6999/06/03 triglyceride, serum, fasting 383 mg/dL 30-200 HDL [...] mg/dL Encounters Code Encounter Date Provider Facility CPT-03119 Level 3 Est. Patient 09:34:56 CDT [facility]-84057 Level 3 Est. Patient 21:40:19 CDT Mima Erazo APRN [facility] CPT-28860 Level 3 Est. Patient 09:26:40 CDT Marvel MARROQUIN [facility] CPT-92782 Level 3 Est. Patient 12:36:43 CDT Vanessa Hickey MD [facility]-02135 Level 3 Est. Patient 12:57:49 CDT Vanessa Hickey MD [facility]-66943 Level 3 Est. Patient 00:28:25 CDT Alina Castaneda MD [facility]56066 Level 2 Est. Patient 12:52:14 CDT Alina Castaneda MD [facility]04846 Level 3 Est. Patient 11:51:18 LEATHER PATCHER Alina Castaneda MD [facility]-30657 Level 3 Est. Patient 10:09:22 LEATHER PATCHER Alina Castaneda MD [facility]17644 Level 3 Est. Patient 14:36:26 LEATHER PATCHER Marvel [facility]-22077 Level 3 Est. Patient 13:34:47 LEATHER PATCHER Alina Castaneda MD [facility]48556 Level 3 Est. Patient 19:52:08 LEATHER PATCHER Alina Castaneda MD [facility]32148 Level 3 Est. Patient 10:01:51 LEATHER PATCHER Marvel [facility]-47271 Level 3 Est. Patient 21:54:06 CDT Vanessa Hickey MD [facility]-14521 Level 3 Est. Patient 08:54:46 CDT Alina Castaneda MD [facility]71759 Level 3 Est. Patient 09:32:11 CDT Marvel [facility]-12252 Level 3 Est. Patient 12:02:49 CDT Alina Castaneda MD [facility]03207 Level 3 Est. Patient 19:17:33 CDT Alina Castaneda MD [facility]25636 Level 3 Est. Patient 13:19:10 CDT Marvel [facility]-13053 Level 3 Est. Patient 08:20:05 CDT Alina Castaneda MD [facility]-03324 Level 3 Est. Patient 15:17:18 CDT Alina Castaneda MD [facility]-76421 Level 3 Est. Patient 14:25:36 LEATHER PATCHER Marvel [facility]-09965 Level 3 Est. Patient 10:09:15 LEATHER PATCHER Marvel [facility]-07838 Level 3 Est. Patient 21:28:43 CDT Alina Castaneda MD [facility]-13037 Level 3 Est. Patient 15:20:[address] [facility] 4 Est. Patient 19:08:12 CDT Alina Castaneda MD [facility]-28163 Level 3 Est. Patient 15:06:39 CDT Marvel [facility]-14369 Level 4 Est. Patient 17:48:15 CDT Alina Castaneda MD [facility]-74394 Level 3 Est. Patient 14:53:49 CDT Alina Castaneda MD [facility]-73525 Level 3 Est. Patient 09:35:16 CDT Alina Castaneda MD [facility]-30346 Level 3 Est. Patient 12:23:22 CDT Alina Castaneda MD [facility]-51764 Level 3 Est. Patient 16:19:15 CDT Alian Castaneda MD [facility]76361 Level 3 Est. Patient 21:39:56 LEATHER PATCHER Alina Castaneda MD [facility]-67117 Level 4 Est. Patient 14:12:56 LEATHER PATCHER Alina Casatneda MD [facility]-71970 Level 2 Est. Patient 15:34:57 LEATHER PATCHER Alina Castaneda MD [facility]-59270 Level 3 Est. Patient 12:17:04 LEATHER PATCHER Alina Castaneda MD [facility]-73789 Level 3 Est. Patient 09:18:18 LEATHER PATCHER Marvel [facility]-58023 Level 2 Est. Patient 21:50:24 CDT Alina Castaneda MD [facility]-04490 Level 3 Est. Patient 09:17:28 CDT Marvel [facility]-81932 Level 4 Est. Patient 18:54:02 CDT Alina Castaneda MD [facility]-61822 Level 3 Est. Patient 10:47:10 CDT Alina Castaneda MD [facility]-66098 Level 3 Est. Patient 09:22:20 CDT Marvel [facility]-10610 Level 3 Est. Patient 16:39:43 CDT Marvel [facility]-67763 Level 3 Est. Patient 16:05:16 CDT Alina Castaneda MD [facility]04387 Level 3 Est. Patient 00:29:15 CDT Alina Castaneda MD [facility]60700 Level 3 Est. Patient 10:49:22 LEATHER PATCHER Marvel [facility]06671 Level 3 Est. Patient 21:30:19 LEATHER PATCHER Alina Castaneda MD PhD [facility] CPT-38942 Level 4 Est. Patient 17:04:11 LEATHER PATCHER Brooksnivia Charles [facility] CPT-75530 Level 3 Est. Patient 15:34:[address] [facility] Shorenivia Mackenzieestela [facility] CPT-18624 Level 2 Est. Patient 12:51:58 LEATHER PATCHER Alina Castaneda MD PhD [facility] CPT-13925 Level 3 Est. Patient 13:20:01 LEATHER PATCHER Alina Castaneda MD [facility] CPT-71723 Level 3 Est. Patient 09:23:35 CDT Alina Castaneda MD PhD [facility] Procedures Code Procedure Name Date Entry Date Standard Description CPT-97602 Bladder Scan 12:36:44 CDT CPT-53648 Bladder Scan 21:54:06 CDT CPT-G0008 Administration of Influenza Virus Vaccine 13:05:26 CDT CPT-90280 Fluzone Quadrivalent Intramuscular Suspension 0.5 ML 13: 05:26 CDT CPT-88293 Administration single or combination vaccine inc oral 11 :49:51 CDT CPT-78211 Pneumovax 11:49:51 CDT CPT-32223 Ribs unilateral 2V 12:37:22 LEATHER PATCHER CPT-86371 Chest 2V Frontal and Lat 17:15:26 CDT CPT-92601 Abx/Therapy Injection 18:54:02 CDT CPT-J0696 Rocephin 1000 mg (Ceftriaxone) 16:00:32 CDT CPT-72076 Chest 2V Frontal and Lat 15:26:45 CDT CPT-30432 Chest 2V Frontal and Lat 10:23:27 CDT CPT-90395 Venipuncture Draw Fee 10:11:00 CDT CPT-63660 Administration single or combination vaccine inc oral 11 :56:38 CDT CPT-56948 Influenza split virus > age 3 11:56:38 CDT CPT-38038 Venipuncture Draw Fee 08:49:54 LEATHER PATCHER CPT-84259 EKG Trac and Interp 17:54:19 LEATHER PATCHER
--- OUTSIDE RECORDS SUMMARY | 2018-07-02 13:38 | XMS REPORT | Clinical Summary ---
Author Author Admin, TERELL Organization [facility] Address Unknown Phone Unavailable Allergies, Adverse 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 Erazo [facility] Benign paroxysmal positional vertigo Vertigo, benign paroxysmal position 386.11 Inactive Mima Erazo [facility] Benign paroxysmal positional vertigo High-risk sexual behavior V69.2 Active Alina Castaneda MD PhD High-risk sexual behavior Erectile dysfunction 302.72 Active Alina Castaneda MD PhD Psychosexual dysfunction with inhibited sexual excitement Constipation 564.00 Active Alina Castaneda MD PhD Constipation, unspecified Skin lesion 709.9 Active Alina Castaenda MD PhD Unspecified disorder of skin and subcutaneous tissue Malaise and fatigue 780.79 Active Cherelle Speaks [facility] Other malaise and fatigue Diarrhea 787.91 Active Cherelle Speaks [facility] Diarrhea PHARYNGITIS 462 Active Cherelle Speaks [facility] Acute pharyngitis Colitis 558.9 Active Mima Erazo [facility] Other and unspecified noninfectious gastroenteritis and colitis WOUND, OPEN, NOSE ICD-873.20 Inactive Alina Castaneda MD PhD DIABETES, TYPE 2 ICD-250.00 Inactive Alina Castaneda MD PhD HYPERTENSION ICD-401.9 Inactive Alina Castaneda MD PhD URI ICD-465.9 Inactive Alina Castaneda MD PhD CHEST PAIN ICD-786.50 Inactive Alina Castaneda MD PhD FH STROKE ICD-V17.1 Inactive Marvel Charles 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 FATIGUE ICD-780.79 Inactive Alina Castaneda MD [...] x 1 week then daily FLUTICASONE PROPIONATE 57819922373 Active Mima Yokum [facility] Active BD PEN NEEDLE MINI U/F 31G X 5 MM MISC 4 a day INSULIN PEN NEEDLE 74856124468 Active Maliheh Ziglari 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 Active AMITIZA 24 MCG ORAL CAPS Take one capsule BID for constipation LUBIPROSTONE 06465173201 Active Mima Yokum [facility] Active LEVEMIR FLEXTOUCH 100 UNIT/ML SC SOPN 75 units SQ each evening, for diabetes INSULIN DETEMIR 76071260251 Active Mima Yokum [facility] Active TRUEPLUS LANCETS 30G MISC 3 a day LANCETS 66676663786 Active Malihnivia Mackenzieglari 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 Active TOLTERODINE TARTRATE 2 MG TABS 1 pill twice daily, for bladder TOLTERODINE TARTRATE 92320189442 No Longer Active Vanessa Hickey MD Active AMITIZA 24 MCG ORAL CAPS Take one capsule BID for constipation. LUBIPROSTONE 55227384136 No Longer Active Vanessa Hickey MD Active LOMOTIL 2.5-0.025 MG ORAL TABS take 1-2 tabs PO after each stool, no more than 8 in 24 hours DIPHENOXYLATE-ATROPINE 06296233759 Active Grace Azam RMA Active FLUVOXAMINE MALEATE 100 MG ORAL TABS take one tab every AM et HS, and take 1/ 2 tab at noon FLUVOXAMINE MALEATE 03891420105 Active Grace Azam RMA Active METOPROLOL SUCCINATE 100 MG [id number]-UOX 1 by mouth daily for blood pressure METOPROLOL SUCCINATE 97844204123 No Longer Active Grace Azam RMA Active METFORMIN HCL ER 500 MG [id number]-UKY Take three tablets by mouth everyday METFORMIN HCL 24132897095 No Longer Active Grace Azam RMA Active LOVAZA 1 GM CAPS 4 daily (for triglycerides) OMEGA-3- ACID ETHYL ESTERS 30448621650 No Longer Active Grace Azam RMA Active TRAZODONE HCL 100 MG ORAL TABS 1 tab by mouth for sleep TRAZODONE HCL 24607197360 No Longer Active Grace Azam RMA Active NOVOFINE 32G X 6 MM MISC use one four times per day INSULIN PEN NEEDLE 05778183759 No Longer Active Grace Azam RMA Active BACTROBAN 2 % CREAM Apply to affected area BID for up to 10 days MUPIROCIN CALCIUM 06047718577 No Longer Active Grace Azam RMA Active ZOFRAN 4 MG TABS 1 po q4hr PRN [place]ausea ONDANSETRON HCL 07360673781 Active Salina Ervinford RMA Active KEFLEX 500 MG CAP 1 po BID x 7 days CEPHALEXIN 66123568475 No Longer Active Cherelle Avila [facility] Active FLUVOXAMINE MALEATE 100 MG TABS Take one (1) tablet by mouth am, 1/2 at noon FLUVOXAMINE MALEATE 79760445839 No Longer Active Mima Erazo [facility] Active CORICIDIN HBP CONGESTION/COUGH 10-200 MG ORAL CAPS Take as directed on box as needed for cold/flu symptoms DEXTROMETHORPHAN-GUAIFENESIN 87894332607 Active Cherelle Avila APRN Active OMEGA-3 300 MG ORAL CAPS 4 caps by mouth daily OMEGA-3 FATTY ACIDS 56802248797 Active Mima Erazo [facility] Active FLUVOXAMINE MALEATE 100 MG ORAL TABS Take 1/2 tab at noon FLUVOXAMINE MALEATE 81363987087 No Longer Active Cherelle Avila [facility] Active [facility] LUBRICANT EYE DROPS 0.4-0.3 % OPHTH SOLN POLYETHYL GLYCOL-PROPYL GLYCOL 73634199048 Active Mima Erazo [facility] Active CLONAZEPAM 1 MG TABS 1/2 pill by mouth three times daily CLONAZEPAM 49315654276 Active Mima Erazo [facility] Active MIRALAX POWD 17g by mouth daily, for constipation POLYETHYLENE GLYCOL 3350 32600655096 Active Alina Castaneda MD PhD Active HYDROCODONE-ACETAMINOPHEN 5-325 MG TABS 2 tabs by mouth three times daily for pain HYDROCODONE-ACETAMINOPHEN 34241872369 Active Mima Erazo [facility] Active HUMALOG KWIKPEN 100 UNIT/ML SC SOPN 20 units with breakfast, 10 units with lunch, 10 units with dinner, for diabetes INSULIN LISPRO (HUMAN ) 81653485073 Active Alina Castaneda MD PhD Active LATUDA 120 MG ORAL TABS 1 pill by mouth nightly LURASIDONE HCL 05800569340 Active Alina Castaneda MD PhD Active COLACE 100 MG CAPS 1 pill by mouth twice daily, for constipation DOCUSATE SODIUM 32559458770 Active Alina Castaneda MD PhD Active TRUETEST TEST STRP check blood sugars 3x/day GLUCOSE BLOOD 35916144796 Active Marvel MARROQUIN Active ACCU-CHEK ROSA UZMA Use device to check blood sugars BLOOD GLUCOSE MONITORING SUPPL 18829149990 No Longer Active Marvel MARROQUIN Active ACCU-CHEK ROSA INVITR STRP use strips with device to check blood sugars 3 times daily GLUCOSE BLOOD 22635555644 No Longer Active Marvel MARROQUIN Active VERAPAMIL HCL ER 180 MG ORAL CR-TABS 1 pill by mouth twice daily, for migraine prevention VERAPAMIL HCL 28916252182 Active Alina Castaneda MD PhD Active CYCLOBENZAPRINE HCL 10 MG TABS 1 tablet by mouth three times daily, scheduled CYCLOBENZAPRINE HCL 23645943796 No Longer Active Alina Castaneda MD PhD Active HUMALOG 100 UNIT/ML SOLN Take 20 units with breakfast, 10u with lunch and suppetr. INSULIN LISPRO (HUMAN) 99149361070 No Longer Active Alina Castaneda MD PhD Active TRUETEST TEST STRP check sugars 4x/day GLUCOSE BLOOD 78361738983 No Longer Active Alina Castaneda MD PhD Active MORPHINE SULFATE 30 MG TABS 1 pill by mouth twice daily, for pain MORPHINE SULFATE 16902152119 Active Mima Erazo [facility] Active ACYCLOVIR 400 MG ORAL TABS 1 pill three times daily x 5 days, for cold sore outbreak ACYCLOVIR 13774332837 No Longer Active Alina Castaneda MD PhD Active PENICILLIN V POTASSIUM 500 MG TABS 1 pill by mouth three times daily PENICILLIN V POTASSIUM 98357265827 No Longer Active Alina Castaneda MD PhD Active UROXATRAL 10 MG BZ73O-YVB Take 1 tablet by mouth daily ALFUZOSIN HCL 87802825426 No Longer Active Alina Castaneda MD PhD Active THIOTHIXENE 5 MG CAPS by mouth twice a day THIOTHIXENE 23364076518 No Longer Active Alina Castaneda MD PhD Active ZYPREXA 7.5 MG TABS 1 at HS OLANZAPINE 48001604108 No Longer Active Alina Castaneda MD PhD Active BD INSULIN SYRINGE 28G X 1/2" 1 ML MISC 1 four times per day INSULIN SYRINGE-NEEDLE U-100 27562228068 Active Marvel MARROQUIN Active DETROL LA 4 MG [id number]-UGY Take 1 tablet by mouth daily TOLTERODINE TARTRATE 09027622189 No Longer Active Alina Castaneda MD PhD Active TERESE CONTOUR TEST STRP monitor blood sugars 3x/day GLUCOSE BLOOD 70516427130 No Longer Active Alina Castaneda MD PhD Active EQL TRUETEST TEST STRP Test blood sugar TID GLUCOSE BLOOD 47081274554 No Longer Active Alina Castaneda MD PhD Active FLUTICASONE PROPIONATE 50 MCG/ACT SUSP 2 sprays each nostril qDay x 30 days FLUTICASONE PROPIONATE 18595403667 No Longer Active Alina Castaneda MD PhD Active IBUPROFEN 200 MG TABS 1 Q 6 hr. PRN IBUPROFEN 36747827703 No Longer Active Alina Castaneda MD PhD Active NIACIN ER 500 MG CR-TABS 4 qHS (for triglycerides) NIACIN 15447998687 No Longer Active Alina Castaneda MD PhD Active ALFUZOSIN HCL ER 10 MG [id number]-HAH 1 tablet daily ALFUZOSIN HCL 25430224515 Active Vanessa Hickey MD Active SAPHRIS 5 MG SUBL by mouth twice a day ASENAPINE MALEATE 78665744553 No Longer Active Marvel MARROQUIN Active ACETAMINOPHEN 500 MG TABS 2 Q 6 hr. PRN ACETAMINOPHEN 46764955349 No Longer Active Marvel MARROQUIN Active ORPHENADRINE CITRATE ER 100 MG JR46U-JCG 1 every 12 hr. as needed ORPHENADRINE CITRATE 09926415655 No Longer Active Alina Castaneda MD PhD Active NIACIN CR 500 MG CR-TABS 2 qHS NIACIN 98449068789 No Longer Active Alina Castaneda MD PhD Active AMOXICILLIN 500 MG CAPS 2 po BID x 10 days AMOXICILLIN 24417830657 No Longer Active Alina Castaneda MD PhD Active HYDROCODONE-ACETAMINOPHEN 7.5-325 MG TABS 1 four times a day as needed for pain HYDROCODONE-ACETAMINOPHEN 44912883053 No Longer Active Alina Castaneda MD PhD Active DOXEPIN HCL 10 MG CAPS Take 1 tablet by mouth daily DOXEPIN HCL 16122864596 No Longer Active Salina Han A Active NAVANE 10 MG CAPS 1/2 tablet twice a day THIOTHIXENE No Longer Active Salina Han A Active CYCLOBENZAPRINE HCL 10 MG TABS 1/2 tablet by mouth every 8 hours as needed for muscle spasms CYCLOBENZAPRINE HCL 32634578128 No Longer Active Alina Castaneda MD PhD Active BACTROBAN 2 % CREAM apply to ear and nose twice daily MUPIROCIN CALCIUM 43337304879 No Longer Active Alina Castaneda MD PhD Active HYDROCODONE-ACETAMINOPHEN 5-325 MG TABS take one tablet by mouth every four hours as needed for pain HYDROCODONE-ACETAMINOPHEN 89144213019 No Longer Active Alina Castaneda MD PhD Active ZOLPIDEM TARTRATE 10 MG TABS take at bedtime ZOLPIDEM TARTRATE 15162134229 Active Alina Castaneda MD PhD Active ZYPREXA 5 MG TABS take one tablet by mouth every evening OLANZAPINE 30672242560 No Longer Active Alina Castaneda MD PhD Active ALBUTEROL SULFATE 0.083 % NEBU SOLN one vial per nebulizer TID and PRN cough/ soa ALBUTEROL SULFATE 16276318576 No Longer Active Alina Castaneda MD PhD Active GUAIFENESIN 600 MG PW62K-PLM 1 tablet by mouth twice daily if needed for cough GUAIFENESIN 15539505259 No Longer Active Marvel MARROQUIN Active AZITHROMYCIN 500 MG SOLR 1 po q day AZITHROMYCIN 83260065799 No Longer Active Alina Castaneda MD PhD Active PROMETHAZINE-CODEINE 6.25-10 MG/5ML SYRP 1 tsp po q 6 hours prn cough PROMETHAZINE-CODEINE 03604538097 No Longer Active Alina Castaneda MD PhD Active CEFDINIR 300 MG CAPS by mouth twice a day CEFDINIR 96996383610 No Longer Active Alina Castaneda MD PhD Active METFORMIN HCL 500 MG LV46D-AFO Take 3 tablets by mouth everyday METFORMIN HCL 29182229777 No Longer Active Alina Castaneda MD PhD Active LEVEMIR 100 UNIT/ML SOLN 90 units SQ qHS INSULIN DETEMIR 10180488916 No Longer Active Marvel MARROQUIN Active TOPROL XL 100 MG MF92F-LZV 1 @ HS METOPROLOL SUCCINATE 06418191121 No Longer Active Marvel MARROQUIN Active ALLOPURINOL 300 MG TABS Take one by mouth daily ALLOPURINOL 05537682082 Active Mima Aguilarliudmila [facility] Active ZYPREXA 10 MG TABS Take one by mouth daily OLANZAPINE 20460557623 No Longer Active Alina Castaneda MD PhD Active NOVOLOG 100 UNIT/ML SOLN 40 units with every meal INSULIN ASPART 75729722711 No Longer Active Alina Castaneda MD PhD Active VERAPAMIL HCL CR 120 MG TAB CR 1 qPM VERAPAMIL HCL 40004998251 No Longer Active Salina Emely ROJAS Active ZYPREXA 15 MG TABS Take 1 tablet by mouth daily OLANZAPINE 56878708169 No Longer Active Marvel MARROQUIN Active LISINOPRIL 20 MG TABS 1 BID LISINOPRIL 61006885562 Active Alina Castaneda MD PhD Active ALBUTEROL SULFATE (2.5 MG/3ML) 0.083% NEBU 1 neb tid and prn cough ALBUTEROL SULFATE 55649438090 No Longer Active Alina Castaneda MD PhD Active TRAVATAN Z 0.004 % SOLN 1 gtt each eye daily TRAVOPROST 40332948030 Active CRYSTAL Suarez Active LANTUS 100 UNIT/ML SOLN 60 units sq q hs INSULIN GLARGINE 57031282385 No Longer Active CRYSTAL Suarez Active ALBUTEROL SULFATE (2.5 MG/3ML) 0.083% NEBU 1 neb tid and prn cough ALBUTEROL SULFATE (2.5 MG/3ML) 0.083% NEBU 649849 ALBUTEROL SULFATE Inactive ZYPREXA 15 MG TABS Take 1 tablet by mouth daily ZYPREXA 15 MG TABS 017843 OLANZAPINE Inactive VERAPAMIL HCL CR 120 MG TAB CR 1 qPM VERAPAMIL HCL CR 120 MG TAB CR VERAPAMIL HCL Inactive ZYPREXA 10 MG TABS Take one by mouth daily ZYPREXA 10 MG TABS 366922 OLANZAPINE Inactive TOPROL XL 100 MG IN60G-HLP 1 @ HS TOPROL XL 100 MG [id number]-JFO METOPROLOL SUCCINATE Inactive LEVEMIR 100 UNIT/ML SOLN 90 units SQ qHS LEVEMIR 100 UNIT/ML SOLN INSULIN DETEMIR Inactive PROMETHAZINE-CODEINE 6.25-10 MG/5ML SYRP 1 tsp po q 6 hours prn cough PROMETHAZINE-CODEINE 6.25-10 MG/5ML SYRP 108750 PROMETHAZINE- CODEINE Inactive GUAIFENESIN 600 MG SU82S-DGY 1 tablet by mouth twice daily if needed for cough GUAIFENESIN 600 MG IG36A-BRE GUAIFENESIN Inactive ALBUTEROL SULFATE 0.083 % NEBU SOLN one vial per nebulizer TID and PRN cough/ soa ALBUTEROL SULFATE 0.083 % NEBU SOLN 805282 ALBUTEROL SULFATE Inactive ZYPREXA 5 MG TABS take one tablet by mouth every evening ZYPREXA 5 MG TABS 992265 OLANZAPINE Inactive HYDROCODONE-ACETAMINOPHEN 5-325 MG TABS take one tablet by mouth every four hours as needed for pain HYDROCODONE-ACETAMINOPHEN 5-325 MG TABS 207985 HYDROCODONE-ACETAMINOPHEN Inactive BACTROBAN 2 % CREAM apply to ear and nose twice daily BACTROBAN 2 % CREAM 636156 MUPIROCIN CALCIUM Inactive CYCLOBENZAPRINE HCL 10 MG TABS 1/2 tablet by mouth every 8 hours as needed for muscle spasms CYCLOBENZAPRINE HCL 10 MG TABS 090964 CYCLOBENZAPRINE HCL Inactive NAVANE 10 MG CAPS 1/2 tablet twice a day NAVANE 10 MG CAPS THIOTHIXENE Inactive DOXEPIN HCL 10 MG CAPS Take 1 tablet by mouth daily DOXEPIN HCL 10 MG CAPS 5654789 DOXEPIN HCL Inactive HYDROCODONE-ACETAMINOPHEN 7.5-325 MG TABS 1 four times a day as needed for pain HYDROCODONE-ACETAMINOPHEN 7.5-325 MG TABS 407813 HYDROCODONE-ACETAMINOPHEN Inactive NIACIN CR 500 MG CR-TABS 2 qHS NIACIN CR 500 MG CR- TABS NIACIN Inactive ORPHENADRINE CITRATE ER 100 MG GV75Z-TIS 1 every 12 hr. as needed ORPHENADRINE CITRATE ER 100 MG PU16W-HGB ORPHENADRINE CITRATE Inactive ACETAMINOPHEN 500 MG TABS 2 Q 6 hr. PRN ACETAMINOPHEN 500 MG TABS 524095 ACETAMINOPHEN Inactive SAPHRIS 5 MG SUBL by mouth twice a day SAPHRIS 5 MG SUBL ASENAPINE MALEATE Inactive NIACIN ER 500 MG CR-TABS 4 qHS (for triglycerides) NIACIN ER 500 MG CR-TABS NIACIN Inactive IBUPROFEN 200 MG TABS 1 Q 6 hr. PRN IBUPROFEN 200 MG TABS 132529 IBUPROFEN Inactive FLUTICASONE PROPIONATE 50 MCG/ACT SUSP 2 sprays each nostril qDay x 30 days FLUTICASONE PROPIONATE 50 MCG/ACT SUSP 025520 FLUTICASONE PROPIONATE Inactive EQL TRUETEST TEST STRP Test blood sugar TID EQL TRUETEST TEST STRP GLUCOSE BLOOD Inactive TERESE CONTOUR TEST STRP monitor blood sugars 3x/day TERESE CONTOUR TEST STRP GLUCOSE BLOOD Inactive DETROL LA 4 MG EG23Z-UHK Take 1 tablet by mouth daily DETROL LA 4 MG ZZ63N-PAO TOLTERODINE TARTRATE Inactive ZYPREXA 7.5 MG TABS 1 at HS ZYPREXA 7.5 MG TABS 926771 OLANZAPINE Inactive THIOTHIXENE 5 MG CAPS by mouth twice a day THIOTHIXENE 5 MG CAPS 004571 THIOTHIXENE Inactive UROXATRAL 10 MG PE00E-DNO Take 1 tablet by mouth daily UROXATRAL 10 MG GO19T-BHP ALFUZOSIN HCL Inactive ACYCLOVIR 400 MG ORAL TABS 1 pill three times daily x 5 days, for cold sore outbreak ACYCLOVIR 400 MG ORAL TABS 152902 ACYCLOVIR Inactive TRUETEST TEST STRP check sugars 4x/day TRUETEST TEST STRP GLUCOSE BLOOD Inactive HUMALOG 100 UNIT/ML SOLN Take 20 units with breakfast, 10u with lunch and suppetr. HUMALOG 100 UNIT/ML SOLN INSULIN LISPRO ( HUMAN) Inactive CYCLOBENZAPRINE HCL 10 MG TABS 1 tablet by mouth three times daily, scheduled CYCLOBENZAPRINE HCL 10 MG TABS 638115 CYCLOBENZAPRINE HCL Inactive ACCU-CHEK ROSA INVITR STRP use strips with device to check blood sugars 3 times daily ACCU-CHEK ROSA INVITR STRP GLUCOSE BLOOD Inactive ACCU-CHEK ROSA UZMA Use device to check blood sugars ACCU-CHEK ROSA UZMA BLOOD GLUCOSE MONITORING SUPPL Inactive FLUVOXAMINE MALEATE 100 MG ORAL TABS Take 1/2 tab at noon FLUVOXAMINE MALEATE 100 MG ORAL TABS 626102 FLUVOXAMINE MALEATE Inactive FLUVOXAMINE MALEATE 100 MG TABS Take one (1) tablet by mouth am, 1/2 at noon FLUVOXAMINE MALEATE 100 MG TABS 933394 FLUVOXAMINE MALEATE Inactive BACTROBAN 2 % CREAM Apply to affected area BID for up to 10 days BACTROBAN 2 % CREAM 578361 MUPIROCIN CALCIUM Inactive NOVOFINE 32G X 6 MM MISC use one four times per day NOVOFINE 32G X 6 MM MISC INSULIN PEN NEEDLE Inactive TRAZODONE HCL 100 MG ORAL TABS 1 tab by mouth for sleep TRAZODONE HCL 100 MG ORAL TABS 199691 TRAZODONE HCL Inactive LOVAZA 1 GM CAPS 4 daily (for triglycerides) LOVAZA 1 GM CAPS 996302 PKZHC-9-XHPF ETHYL ESTERS Inactive METFORMIN HCL ER 500 MG PT58Z-ZGG Take three tablets by mouth everyday METFORMIN HCL ER 500 MG PU26F-NNO METFORMIN HCL Inactive METOPROLOL SUCCINATE 100 MG TS88B-HBX 1 by mouth daily for blood pressure METOPROLOL SUCCINATE 100 MG CJ75Q-CDE METOPROLOL SUCCINATE Inactive AMITIZA 24 MCG ORAL CAPS Take one capsule BID for constipation. AMITIZA 24 MCG ORAL CAPS LUBIPROSTONE Inactive TOLTERODINE TARTRATE 2 MG TABS 1 pill twice daily, for bladder TOLTERODINE TARTRATE 2 MG TABS 012106 TOLTERODINE TARTRATE Inactive CEFDINIR 300 MG CAPS by mouth twice a day CEFDINIR 300 MG CAPS 508778 CEFDINIR Inactive AZITHROMYCIN 500 MG SOLR 1 po q day AZITHROMYCIN 500 MG SOLR 16361584973 AZITHROMYCIN Inactive AMOXICILLIN 500 MG CAPS 2 po BID x 10 days AMOXICILLIN 500 MG CAPS 183201 AMOXICILLIN Inactive PENICILLIN V POTASSIUM 500 MG TABS 1 pill by mouth three times daily PENICILLIN V POTASSIUM 500 MG TABS 803364 PENICILLIN V POTASSIUM Inactive KEFLEX 500 MG CAP 1 po BID x 7 days KEFLEX 500 MG CAP 505862 CEPHALEXIN Inactive Immunizations Vaccine Administration Date Value [...] Fluvirin, Fluarix, Agriflu(>=18 yo)) Fluzone (>3 yrs.) [GCS380] Influenza, seasonal, injectable pneumococcal immunization administered Pneumovax [...] Panel - Chemistry sodium, serum 137 mmol/L 740-118 5892/10/12 potassium, serum 4.8 mmol/L 3.5-5.2 chloride, serum 102 mmol/L 98-107 carbon dioxide, venous blood 27.6 mmol/L 21.0-32.0 blood glucose 168 mg/dL 65-110 calcium, serum 9.0 mg/dL 8.5-10.1 urea nitrogen, blood 15 mg/dL 7-18 creatinine, serum 1.04 mg/dL 0.55-1.30 sodium, serum 138 mmol/L 927-357 6418/11/11 potassium, serum 4.7 mmol/L 3.5-5.2 chloride, serum [...] % 11.6-14.8 platelet count 252 10^3/MM^3 10*3/mm3 865-458 4793/10/12 leukocyte count, blood 5.8 10^3/MM^3 10*3/mm3 4.6-10.2 [...] 240 10^3/MM^3 10*3/mm3 142-424 Lab Report: Chlamydia/GC APTIMA/76433, HIV-1/2 Agn/Dominga/08650, RPR (DX) W ... - Chemistry hepatitis B surface antigen NON-REACTIVE NON-REACTIVE Lab Report: Chlamydia/GC APTIMA/95189, HIV-1/2 Agn/Dominga/79736, RPR (DX) W ... - Lab chlamydia DNA probe NOT DETECTED NOT DETECTED Lab Report: Chlamydia/GC APTIMA/05547, HIV-1/2 Agn/Dominga/42418, RPR (DX) W ... - Microbiology Neisseria gonorrhoeae DNA probe NOT DETECTED NOT DETECTED Lab Report: Chlamydia/GC APTIMA/41045, HIV-1/2 Agn/Dominga/21768, RPR (DX) W ... - Serology rapid [...] CBC - Chemistry cholesterol, serum 131 mg/dL 333-789 4884/06/03 triglyceride, serum, fasting 383 mg/dL 30-200 HDL [...] 4.7 mg/dL 2.6-7.2 cholesterol, serum 142 mg/dL 184-651 7131/06/26 triglyceride, serum, fasting 272 mg/dL 30-200 HDL [...] negative Encounters Code Encounter Date Provider Facility [facility]-[id number] Level 3 Est. Patient 14:39:00 LANG INTERPRETER Vanessa Hickey MD [facility]19050 Level 2 Est. Patient 18:43:34 CDT Mima Erazo [facility]-44853 Level 3 Est. Patient 16:22:09 CDT Cherelle Speakluciana [facility]-21642 Level 4 Est. Patient 17:55:14 CDT Mima Erazo [facility] CPT-03940 Level 2 Est. Patient 17:13:21 CDT Alina Castaneda MD [facility]94483 Level 3 Est. Patient 14:46:15 CDT Vanessa Hickey MD [facility]71004 Level 3 Est. Patient 09:34:56 CDT Alina Castaneda MD [facility]96382 Level 3 Est. Patient 21:40:19 CDT Mima Erazo [facility]-30189 Level 3 Est. Patient 09:26:40 CDT Marvel Charles [facility]45699 Level 3 Est. Patient 12:36:43 CDT Vanessa Hickey MD [facility]85765 Level 3 Est. Patient 12:57:49 CDT Vanessa Hickey MD [facility] CPT-99367 Level 3 Est. Patient 00:28:25 CDT Alina Castaneda MD [facility]-46537 Level 2 Est. Patient 12:52:14 CDT Alina Castaneda MD [facility]-07263 Level 3 Est. Patient 11:51:18 LANG INTERPRETER Alina Castaneda MD [facility]-81071 Level 3 Est. Patient 10:09:22 LANG INTERPRETER Alina Castaneda MD [facility]59011 Level 3 Est. Patient 14:36:26 [facility]38394 Level 3 Est. Patient 13:34:47 LANG INTERPRETER Alina Castaneda MD [facility]68592 Level 3 Est. Patient 19:52:08 LANG INTERPRETER Alina Castaneda MD [facility]99059 Level 3 Est. Patient 10:01:51 [facility]-01527 Level 3 Est. Patient 21:54:06 CDT Vanessa Hickey MD [facility]09924 Level 3 Est. Patient 08:54:46 CDT Alina Castaneda MD [facility]-11882 Level 3 Est. Patient 09:32:11 CDT Marvel Charles [facility]-72677 Level 3 Est. Patient 12:02:49 CDT Alina Castaneda MD [facility]87604 Level 3 Est. Patient 19:17:33 CDT Alina Castaneda MD [facility]49396 Level 3 Est. Patient 13:19:10 CDT Marvel Charles [facility]-30770 Level 3 Est. Patient 08:20:05 CDT Alina Castaneda MD [facility]-07725 Level 3 Est. Patient 15:17:18 CDT Alina Castaneda MD [facility]-96521 Level 3 Est. Patient 14:25:36 LANG INTERPRETER Marvel Charles [facility]-60841 Level 3 Est. Patient 10:09:15 LANG INTERPRETER Marvel Charles [facility]-57261 Level 3 Est. Patient 21:28:43 CDT Alina Castaneda MD [facility]-81762 Level 3 Est. Patient 15:20:11 CD[facility] Level 4 Est. Patient 19:08:12 CDT Alina Castaneda MD [facility]-50955 Level 3 Est. Patient 15:06:39 CDT [facility]38523 Level 4 Est. Patient 17:48:15 CDT Alina Castaneda MD [facility]-67186 Level 3 Est. Patient 14:53:49 CDT Alina Castaneda MD [facility]-97487 Level 3 Est. Patient 09:35:16 CDT Alina Castaneda MD [facility]-83837 Level 3 Est. Patient 12:23:22 CDT Alina Castaneda MD [facility]-32523 Level 3 Est. Patient 16:19:15 CDT Alina Castaneda MD [facility]-84540 Level 3 Est. Patient 21:39:56 LANG INTERPRETER Alina Castaneda MD [facility]99777 Level 4 Est. Patient 14:12:56 LANG INTERPRETER Alina Castaneda MD [facility]-52534 Level 2 Est. Patient 15:34:57 LANG INTERPRETER Alina Castaneda MD [facility]-95779 Level 3 Est. Patient 12:17:04 LANG INTERPRETER Alina Castaneda MD [facility]-18049 Level 3 Est. Patient 09:18:18 LANG INTERPRETER Marvel Charles [facility] CPT-80205 Level 2 Est. Patient 21:50:24 CDT Alina Castaneda MD [facility]-71365 Level 3 Est. Patient 09:17:28 CDT Marvel Charles [facility]-12209 Level 4 Est. Patient 18:54:02 CDT Alina Castaneda MD [facility]-[id number] Level 3 Est. Patient 10:47:10 CDT Alina Castaneda MD [facility]-32220 Level 3 Est. Patient 09:22:20 CDT [facility] CPT-67473 Level 3 Est. Patient 16:39:43 CDT [facility] CPT-23293 Level 3 Est. Patient 16:05:16 CDT Alina Castaneda MD [facility]-98449 Level 3 Est. Patient 00:29:15 CDT Alina Castaneda MD [facility]-25229 Level 3 Est. Patient 10:49:22 LANG INTERPRETER [facility]-12894 Level 3 Est. Patient 21:30:19 LANG INTERPRETER Alina Castaneda MD [facility]-39996 Level 4 Est. Patient 17:04:11 LANG INTERPRETER [facility] CPT-87216 Level 3 Est. Patient 15:34:11 LANG INTERPRETER [facility] CPT-46324 Level 2 Est. Patient 12:51:58 LANG INTERPRETER Alina Castaneda MD PhD [facility] CPT-92442 Level 3 Est. Patient 13:20:01 LANG INTERPRETER Alina Castaneda MD PhD [facility] CPT-88321 Level 3 Est. Patient 09:23:35 CDT Alina Castaneda MD PhD [facility] Procedures Code Procedure Name Date Entry Date Standard Description CPT-01250 Bladder Scan 14:39:01 LANG INTERPRETER CPT-TCMM Transitional Care Mgmt-Moderate 10:30:19 LANG INTERPRETER CPT-02250 Bladder Scan 12:36:44 CDT CPT-35228 Bladder Scan 21:54:06 CDT CPT-G0008 Administration of Influenza Virus Vaccine 13:05:26 CDT CPT-57128 Fluzone Quadrivalent Intramuscular Suspension 0.5 ML 13: 05:26 CDT CPT-76260 Administration single or combination vaccine inc oral 11 :49:51 CDT CPT-58338 Pneumovax 11:49:51 CDT CPT-59276 Ribs unilateral 2V 12:37:22 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
--- OUTSIDE RECORDS SUMMARY | 2018-07-02 13:40 | XMS REPORT | Clinical Summary ---
Author Author Admin, TERELL Organization [facility] [place] Address Unknown Phone Unavailable Allergies, Adverse Reactions, 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 Erazo [employer] Benign paroxysmal positional vertigo Vertigo, benign paroxysmal position 386.11 Inactive Mima Erazo [employer] Benign paroxysmal positional vertigo High-risk sexual behavior V69.2 Active Alina Castaneda MD PhD High-risk sexual behavior Erectile dysfunction 302.72 Active Alina Castaneda MD PhD Psychosexual dysfunction with inhibited sexual excitement Constipation 564.00 Active Alina Castaneda MD PhD Constipation, unspecified Skin lesion 709.9 Active Alina Castaneda MD PhD Unspecified disorder of skin and subcutaneous tissue Malaise and fatigue 780.79 Active Cherelle Speaks [employer] Other malaise and fatigue Diarrhea 787.91 Active Cherelle Speaks [employer] Diarrhea PHARYNGITIS 462 Active Cherelle Speaks [employer] Acute pharyngitis Colitis 558.9 Active Mima Erazo [employer] Other and unspecified noninfectious gastroenteritis and colitis [...] CAPS Take one by mouth daily CHOLECALCIFEROL 63450928216 Active Mima Yokum [employer] Active LATUDA 60 MG ORAL TABS Take one by mouth daily LURASIDONE HCL 06477003564 No Longer Active Mima Yokum [employer] Active HUMALOG KWIKPEN 100 UNIT/ML SC SOPN sliding scale if needed INSULIN LISPRO (HUMAN) 96682763216 Active Mima Yokum [employer] Active MORPHINE SULFATE 30 MG ORAL TABS by mouth twice a day MORPHINE SULFATE 00395849920 Active Salina Han [facility] Active TRAZODONE HCL 100 MG TABS 1 every night to prevent headaches TRAZODONE HCL 48939485642 Active Gabrielle Madl FORMER HAND Active LATUDA 60 MG ORAL TABS 1 tab daily LURASIDONE HCL 01267040079 Active Gabrielle Madl FORMER HAND Active CLONAZEPAM 1 MG TABS 1 pill by mouth three times daily CLONAZEPAM 65722378320 Active Gabrielle Madl FORMER HAND Active [facility] MILK OF MAGNESIA 400 MG/5ML ORAL SUSP 30ml by mouth bid prn MAGNESIUM HYDROXIDE 15081462068 Active Mason Loredo MD Active TYLENOL 8 HOUR 650 MG ORAL CR-TABS 1 tab QID prn ACETAMINOPHEN 23933706422 Active Mason Loredo MD Active MYLANTA GAS RELIEF MAXIMUM STR 125 MG ORAL CAPS 30cc every 4 hours prn 12/01 SIMETHICONE 34123081841 Active Mason Loredo MD Active IMODIUM A-D 2 MG ORAL TABS 1 tab QID as needed LOPERAMIDE HCL 28708530146 Active Mason Loredo MD Active FLUVOXAMINE MALEATE 50 MG ORAL TABS 1 tab by mouth daily FLUVOXAMINE MALEATE 60293144765 Active Mason Loredo MD Active TRAVATAN Z 0.004 % SOLN 1 gtt each eye daily TRAVOPROST 69551676184 No Longer Active Mason Loredo MD Active LISINOPRIL 20 MG TABS 1 BID LISINOPRIL 17299088520 No Longer Active Mason Loredo MD Active LEVEMIR FLEXTOUCH 100 UNIT/ML SC SOPN 60 units SQ each evening, for diabetes INSULIN DETEMIR 79037974120 Active Desi Nicholson Active ZOLPIDEM TARTRATE 10 MG TABS take at bedtime ZOLPIDEM TARTRATE 04753426618 No Longer Active Mason Loredo MD Active HYDROCODONE-ACETAMINOPHEN 5-325 MG TABS 2 tabs by mouth three times daily for pain HYDROCODONE-ACETAMINOPHEN 46138831164 No Longer Active Mason Loredo MD Active ZOFRAN 4 MG TABS 1 po q4hr PRN Nausea ONDANSETRON HCL 46087377281 No Longer Active Mason Loredo MD Active LOMOTIL 2.5-0.025 MG ORAL TABS take 1-2 tabs PO after each stool, no more than 8 in 24 hours DIPHENOXYLATE-ATROPINE 20670302123 No Longer Active Mason Loredo MD Active COLACE 100 MG CAPS 1 pill by mouth twice daily, for constipation DOCUSATE SODIUM 60590315628 No Longer Active Mima Kacey [place] Active FLONASE ALLERGY RELIEF 50 MCG/ACT NASAL SUSP One spray each nostril BID x 1 week then daily FLUTICASONE PROPIONATE 07726930883 Active Mima Earzo APRN Active BD PEN NEEDLE MINI U/F 31G X 5 MM MISC 4 a day INSULIN PEN NEEDLE 04366778075 Active Marvel Bertrandari STAFF ANESTHESIOLOGIST Active AMITIZA 24 MCG ORAL CAPS Take one capsule BID for constipation LUBIPROSTONE 86300600485 Active Mima Erazo [employer] Active TRUEPLUS LANCETS 30G MISC 3 a day LANCETS 03589277633 Active Marvel 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 STAFF ANESTHESIOLOGIST Active TOLTERODINE TARTRATE 2 MG TABS 1 pill twice daily, for bladder TOLTERODINE TARTRATE 63565005725 No Longer Active Vanessa Hickey MD Active AMITIZA 24 MCG ORAL CAPS Take one capsule BID for constipation. LUBIPROSTONE 34703919894 No Longer Active Vanessa Hickey MD Active FLUVOXAMINE MALEATE 100 MG ORAL TABS take one tab every AM et HS, and take 1/ 2 tab at noon FLUVOXAMINE MALEATE 05740511794 Active Grace Azam RMA Active METOPROLOL SUCCINATE 100 MG [id number] 1 by mouth daily for blood pressure METOPROLOL SUCCINATE 50591175475 No Longer Active Grace Azam RMA Active METFORMIN HCL ER 500 MG [id number] Take three tablets by mouth everyday METFORMIN HCL 07433810298 No Longer Active Grace Azam RMA Active LOVAZA 1 GM CAPS 4 daily (for triglycerides) OMEGA-3- ACID ETHYL ESTERS 89109517552 No Longer Active Grace Azam RMA Active TRAZODONE HCL 100 MG ORAL TABS 1 tab by mouth for sleep TRAZODONE HCL 99296224192 No Longer Active Grace Azam RMA Active NOVOFINE 32G X 6 MM MISC use one four times per day INSULIN PEN NEEDLE 96138853053 No Longer Active Grace Azam RMA Active BACTROBAN 2 % CREAM Apply to affected area BID for up to 10 days MUPIROCIN CALCIUM 57010997940 No Longer Active Grace Nelsonb RMA Active KEFLEX 500 MG CAP 1 po BID x 7 days CEPHALEXIN 57104494877 No Longer Active Cherelle Speaks [employer] Active FLUVOXAMINE MALEATE 100 MG TABS Take one (1) tablet by mouth am, 1/2 at noon FLUVOXAMINE MALEATE 13298299592 No Longer Active Mima Erazo [employer] Active CORICIDIN HBP CONGESTION/COUGH 10-200 MG ORAL CAPS Take as directed on box as needed for cold/flu symptoms DEXTROMETHORPHAN-GUAIFENESIN 66510108186 Active Cherelle Speaks [employer] Active OMEGA-3 300 MG ORAL CAPS 4 caps by mouth daily OMEGA-3 FATTY ACIDS 92193643224 Active Mima Erazo [employer] Active FLUVOXAMINE MALEATE 100 MG ORAL TABS Take 1/2 tab at noon FLUVOXAMINE MALEATE 37704780848 No Longer Active Cherelle Austin [employer] Active [facility] LUBRICANT EYE DROPS 0.4-0.3 % OPHTH SOLN POLYETHYL GLYCOL-PROPYL GLYCOL 36282388653 Active Mima Erazo [employer] Active MIRALAX POWD 17g by mouth daily, for constipation POLYETHYLENE GLYCOL 3350 16128737407 Active Alina Castaneda MD PhD Active TRUETEST TEST STRP check blood sugars 3x/day GLUCOSE BLOOD 12489904203 Active Maliheh Ziglari STAFF ANESTHESIOLOGIST Active ACCU-CHEK ROSA UZMA Use device to check blood sugars BLOOD GLUCOSE MONITORING SUPPL 57754157884 No Longer Active Maliheh Ziglari STAFF ANESTHESIOLOGIST Active ACCU-CHEK ROSA INVITR STRP use strips with device to check blood sugars 3 times daily GLUCOSE BLOOD 54042472177 No Longer Active Maliheh Ziglari STAFF ANESTHESIOLOGIST Active VERAPAMIL HCL ER 180 MG ORAL CR-TABS 1 pill by mouth twice daily, for migraine prevention VERAPAMIL HCL 77607234960 Active CRYSTAL Rodrigues Active CYCLOBENZAPRINE HCL 10 MG TABS 1 tablet by mouth three times daily, scheduled CYCLOBENZAPRINE HCL 13514736894 No Longer Active Alina Castaneda MD PhD Active HUMALOG 100 UNIT/ML SOLN Take 20 units with breakfast, 10u with lunch and suppetr. INSULIN LISPRO (HUMAN) 99087658095 No Longer Active Alina Castaneda MD PhD Active TRUETEST TEST STRP check sugars 4x/day GLUCOSE BLOOD 75028726327 No Longer Active Alina Castaneda MD PhD Active MORPHINE SULFATE 30 MG TABS 1 pill by mouth twice daily, for pain MORPHINE SULFATE 90684724173 No Longer Active Mason Loredo MD Active ACYCLOVIR 400 MG ORAL TABS 1 pill three times daily x 5 days, for cold sore outbreak ACYCLOVIR 47486490587 No Longer Active Alina Castaneda MD PhD Active PENICILLIN V POTASSIUM 500 MG TABS 1 pill by mouth three times daily PENICILLIN V POTASSIUM 74625554379 No Longer Active Alina Castaneda MD PhD Active UROXATRAL 10 MG [id number] Take 1 tablet by mouth daily ALFUZOSIN HCL 71493900938 No Longer Active Alina Castaneda MD PhD Active THIOTHIXENE 5 MG CAPS by mouth twice a day THIOTHIXENE 01839702236 No Longer Active Alina Castaneda MD PhD Active ZYPREXA 7.5 MG TABS 1 at HS OLANZAPINE 82630237822 No Longer Active Alina Castaneda MD PhD Active BD INSULIN SYRINGE 28G X 1/2" 1 ML MISC 1 four times per day INSULIN SYRINGE-NEEDLE U-100 65548227138 Active Marvel Mackenzieglestela STAFF ANESTHESIOLOGIST Active DETROL LA 4 MG [id number] Take 1 tablet by mouth daily TOLTERODINE TARTRATE 13329990656 No Longer Active Alina Castaneda MD PhD Active TERESE CONTOUR TEST STRP monitor blood sugars 3x/day GLUCOSE BLOOD 87224043204 No Longer Active Alina Castaneda MD PhD Active EQL TRUETEST TEST STRP Test blood sugar TID GLUCOSE BLOOD 49391215119 No Longer Active Alina Castaneda MD PhD Active FLUTICASONE PROPIONATE 50 MCG/ACT SUSP 2 sprays each nostril qDay x 30 days FLUTICASONE PROPIONATE 56430330899 No Longer Active Alina Castaneda MD PhD Active IBUPROFEN 200 MG TABS 1 Q 6 hr. PRN IBUPROFEN 10289931073 No Longer Active Alina Castaneda MD PhD Active NIACIN ER 500 MG CR-TABS 4 qHS (for triglycerides) NIACIN 71796404225 No Longer Active Alina Castaneda MD PhD Active ALFUZOSIN HCL ER 10 MG [id number] 1 tablet daily ALFUZOSIN HCL 48331262332 Active CRYSTAL Rodrigues Active SAPHRIS 5 MG SUBL by mouth twice a day ASENAPINE MALEATE 32715348595 No Longer Active Maljohn Ziglestela MENDOZAP Active ACETAMINOPHEN 500 MG TABS 2 Q 6 hr. PRN ACETAMINOPHEN 26549420081 No Longer Active Mallashondaeh 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 STAFF ANESTHESIOLOGIST Active ORPHENADRINE CITRATE ER 100 MG [id number] 1 every 12 hr. as needed ORPHENADRINE CITRATE 80019706852 No Longer Active Alina Castaneda MD PhD Active NIACIN CR 500 MG CR-TABS 2 qHS NIACIN 44299276129 No Longer Active Alina Castaneda MD PhD Active AMOXICILLIN 500 MG CAPS 2 po BID x 10 days AMOXICILLIN 60738225985 No Longer Active Alina Castaneda MD PhD Active HYDROCODONE-ACETAMINOPHEN 7.5-325 MG TABS 1 four times a day as needed for pain HYDROCODONE-ACETAMINOPHEN 77716246046 No Longer Active Alina Castaneda MD PhD Active DOXEPIN HCL 10 MG CAPS Take 1 tablet by mouth daily DOXEPIN HCL 70597808438 No Longer Active Salina Han [facility] Active NAVANE 10 MG CAPS 1/2 tablet twice a day THIOTHIXENE No Longer Active Salina Han A Active CYCLOBENZAPRINE HCL 10 MG TABS 1/2 tablet by mouth every 8 hours as needed for muscle spasms CYCLOBENZAPRINE HCL 68580412363 No Longer Active Alina Castaneda MD PhD Active BACTROBAN 2 % CREAM apply to ear and nose twice daily MUPIROCIN CALCIUM 66551102704 No Longer Active Alina Castaneda MD PhD Active HYDROCODONE-ACETAMINOPHEN 5-325 MG TABS take one tablet by mouth every four hours as needed for pain HYDROCODONE-ACETAMINOPHEN 14966671673 No Longer Active Alina Castaneda MD PhD Active ZYPREXA 5 MG TABS take one tablet by mouth every evening OLANZAPINE 57107439126 No Longer Active Alina Castaneda MD PhD Active ALBUTEROL SULFATE 0.083 % NEBU SOLN one vial per nebulizer TID and PRN cough/ soa ALBUTEROL SULFATE 39716971665 No Longer Active Alina Castaneda MD PhD Active GUAIFENESIN 600 MG [id number] 1 tablet by mouth twice daily if needed for cough GUAIFENESIN 08650237323 No Longer Active Marvel Charles [facility] Active AZITHROMYCIN 500 MG SOLR 1 po q day AZITHROMYCIN 57586886811 No Longer Active Alina Castaneda MD PhD Active PROMETHAZINE-CODEINE 6.25-10 MG/5ML SYRP 1 tsp po q 6 hours prn cough PROMETHAZINE-CODEINE 03114887987 No Longer Active Alina Castaneda MD PhD Active CEFDINIR 300 MG CAPS by mouth twice a day CEFDINIR 31886839205 No Longer Active Alina Castaneda MD PhD Active METFORMIN HCL 500 MG [id number] Take 3 tablets by mouth everyday METFORMIN HCL 49017217299 No Longer Active Alina Castaneda MD PhD Active LEVEMIR 100 UNIT/ML SOLN 90 units SQ qHS INSULIN DETEMIR 05590826656 No Longer Active Marvel MARROQUIN Active TOPROL XL 100 MG [id number] 1 @ HS METOPROLOL SUCCINATE 37935292321 No Longer Active Marvel MARROQUIN Active ALLOPURINOL 300 MG TABS Take one by mouth daily ALLOPURINOL 73383436141 Active Mimacecily Fierroum [employer] Active ZYPREXA 10 MG TABS Take one by mouth daily OLANZAPINE 41936687675 No Longer Active Alina Castaneda MD PhD Active NOVOLOG 100 UNIT/ML SOLN 40 units with every meal INSULIN ASPART 39050621631 No Longer Active Alina Castaneda MD PhD Active VERAPAMIL HCL CR 120 MG TAB CR 1 qPM VERAPAMIL HCL 75928073820 No Longer Active Salina ROJAS Active ZYPREXA 15 MG TABS Take 1 tablet by mouth daily OLANZAPINE 33136348127 No Longer Active Marvel MARROQUIN Active ALBUTEROL SULFATE (2.5 MG/3ML) 0.083% NEBU 1 neb tid and prn cough ALBUTEROL SULFATE 75326166167 No Longer Active Alina Castaneda MD PhD Active LANTUS 100 UNIT/ML SOLN 60 units sq q hs INSULIN GLARGINE 80419871211 No Longer Active CRYSTAL Suarez Active ALBUTEROL SULFATE (2.5 MG/3ML) 0.083% NEBU 1 neb tid and prn cough ALBUTEROL SULFATE (2.5 MG/3ML) 0.083% NEBU 748166 ALBUTEROL SULFATE Inactive ZYPREXA 15 MG TABS Take 1 tablet by mouth daily ZYPREXA 15 MG TABS 120234 OLANZAPINE Inactive VERAPAMIL HCL CR 120 MG TAB CR 1 qPM VERAPAMIL HCL CR 120 MG TAB CR VERAPAMIL HCL Inactive ZYPREXA 10 MG TABS Take one by mouth daily ZYPREXA 10 MG TABS 187887 OLANZAPINE Inactive TOPROL XL 100 MG [id number] 1 @ HS TOPROL XL 100 MG [id number] METOPROLOL SUCCINATE Inactive LEVEMIR 100 UNIT/ML SOLN 90 units SQ qHS LEVEMIR 100 UNIT/ML SOLN INSULIN DETEMIR Inactive PROMETHAZINE-CODEINE 6.25-10 MG/5ML SYRP 1 tsp po q 6 hours prn cough PROMETHAZINE-CODEINE 6.25-10 MG/5ML SYRP 367296 PROMETHAZINE- CODEINE Inactive GUAIFENESIN 600 MG [id number] 1 tablet by mouth twice daily if needed for cough GUAIFENESIN 600 MG [id number]-EOH GUAIFENESIN Inactive ALBUTEROL SULFATE 0.083 % NEBU SOLN one vial per nebulizer TID and PRN cough/ soa ALBUTEROL SULFATE 0.083 % NEBU SOLN 600524 ALBUTEROL SULFATE Inactive ZYPREXA 5 MG TABS take one tablet by mouth every evening ZYPREXA 5 MG TABS 072219 OLANZAPINE Inactive HYDROCODONE-ACETAMINOPHEN 5-325 MG TABS take one tablet by mouth every four hours as needed for pain HYDROCODONE-ACETAMINOPHEN 5-325 MG TABS 422506 HYDROCODONE-ACETAMINOPHEN Inactive BACTROBAN 2 % CREAM apply to ear and nose twice daily BACTROBAN 2 % CREAM 323379 MUPIROCIN CALCIUM Inactive CYCLOBENZAPRINE HCL 10 MG TABS 1/2 tablet by mouth every 8 hours as needed for muscle spasms CYCLOBENZAPRINE HCL 10 MG TABS 900722 CYCLOBENZAPRINE HCL Inactive NAVANE 10 MG CAPS 1/2 tablet twice a day NAVANE 10 MG CAPS THIOTHIXENE Inactive DOXEPIN HCL 10 MG CAPS Take 1 tablet by mouth daily DOXEPIN HCL 10 MG CAPS 1222970 DOXEPIN HCL Inactive HYDROCODONE-ACETAMINOPHEN 7.5-325 MG TABS 1 four times a day as needed for pain HYDROCODONE-ACETAMINOPHEN 7.5-325 MG TABS 582477 HYDROCODONE-ACETAMINOPHEN Inactive NIACIN CR 500 MG CR-TABS 2 qHS NIACIN CR 500 MG CR- TABS NIACIN Inactive ORPHENADRINE CITRATE ER 100 MG [id number] 1 every 12 hr. as needed ORPHENADRINE CITRATE ER 100 MG [id number] ORPHENADRINE CITRATE Inactive ACETAMINOPHEN 500 MG TABS 2 Q 6 hr. PRN ACETAMINOPHEN 500 MG TABS 484450 ACETAMINOPHEN Inactive SAPHRIS 5 MG SUBL by mouth twice a day SAPHRIS 5 MG SUBL ASENAPINE MALEATE Inactive NIACIN ER 500 MG CR-TABS 4 qHS (for triglycerides) NIACIN ER 500 MG CR-TABS NIACIN Inactive IBUPROFEN 200 MG TABS 1 Q 6 hr. PRN IBUPROFEN 200 MG TABS 904104 IBUPROFEN Inactive FLUTICASONE PROPIONATE 50 MCG/ACT SUSP 2 sprays each nostril qDay x 30 days FLUTICASONE PROPIONATE 50 MCG/ACT SUSP 925729 FLUTICASONE PROPIONATE Inactive EQL TRUETEST TEST STRP Test blood sugar TID EQL TRUETEST TEST STRP GLUCOSE BLOOD Inactive TERESE CONTOUR TEST STRP monitor blood sugars 3x/day TERESE CONTOUR TEST STRP GLUCOSE BLOOD Inactive DETROL LA 4 MG [id number] Take 1 tablet by mouth daily DETROL LA 4 MG [id number] TOLTERODINE TARTRATE Inactive ZYPREXA 7.5 MG TABS 1 at HS ZYPREXA 7.5 MG TABS 505144 OLANZAPINE Inactive THIOTHIXENE 5 MG CAPS by mouth twice a day THIOTHIXENE 5 MG CAPS 658581 THIOTHIXENE Inactive UROXATRAL 10 MG [id number] Take 1 tablet by mouth daily UROXATRAL 10 MG [id number] ALFUZOSIN HCL Inactive ACYCLOVIR 400 MG ORAL TABS 1 pill three times daily x 5 days, for cold sore outbreak ACYCLOVIR 400 MG ORAL TABS 301333 ACYCLOVIR Inactive TRUETEST TEST STRP check sugars 4x/day TRUETEST TEST STRP GLUCOSE BLOOD Inactive HUMALOG 100 UNIT/ML SOLN Take 20 units with breakfast, 10u with lunch and suppetr. HUMALOG 100 UNIT/ML SOLN INSULIN LISPRO ( HUMAN) Inactive CYCLOBENZAPRINE HCL 10 MG TABS 1 tablet by mouth three times daily, scheduled CYCLOBENZAPRINE HCL 10 MG TABS 739852 CYCLOBENZAPRINE HCL Inactive ACCU-CHEK ROSA INVITR STRP use strips with device to check blood sugars 3 times daily ACCU-CHEK ROSA INVITR STRP GLUCOSE BLOOD Inactive ACCU-CHEK ROSA UZMA Use device to check blood sugars ACCU-CHEK ROSA UZMA BLOOD GLUCOSE MONITORING SUPPL Inactive FLUVOXAMINE MALEATE 100 MG ORAL TABS Take 1/2 tab at noon FLUVOXAMINE MALEATE 100 MG ORAL TABS 952225 FLUVOXAMINE MALEATE Inactive FLUVOXAMINE MALEATE 100 MG TABS Take one (1) tablet by mouth am, 1/2 at noon FLUVOXAMINE MALEATE 100 MG TABS 324552 FLUVOXAMINE MALEATE Inactive BACTROBAN 2 % CREAM Apply to affected area BID for up to 10 days BACTROBAN 2 % CREAM 744698 MUPIROCIN CALCIUM Inactive NOVOFINE 32G X 6 MM MISC use one four times per day NOVOFINE 32G X 6 MM MISC INSULIN PEN NEEDLE Inactive TRAZODONE HCL 100 MG ORAL TABS 1 tab by mouth for sleep TRAZODONE HCL 100 MG ORAL TABS 134555 TRAZODONE HCL Inactive LOVAZA 1 GM CAPS 4 daily (for triglycerides) LOVAZA 1 GM CAPS 910065 CKPSB-3-TTRC ETHYL ESTERS Inactive METFORMIN HCL ER 500 MG [id number] Take three tablets by mouth everyday METFORMIN HCL ER 500 MG [id number] METFORMIN HCL Inactive METOPROLOL SUCCINATE 100 MG [id number]-[id number] 1 by mouth daily for blood pressure METOPROLOL SUCCINATE 100 MG FW34I-LEH METOPROLOL SUCCINATE Inactive AMITIZA 24 MCG ORAL CAPS Take one capsule BID for constipation. AMITIZA 24 MCG ORAL CAPS LUBIPROSTONE Inactive TOLTERODINE TARTRATE 2 MG TABS 1 pill twice daily, for bladder TOLTERODINE TARTRATE 2 MG TABS 873888 TOLTERODINE TARTRATE Inactive COLACE 100 MG CAPS 1 pill by mouth twice daily, for constipation COLACE 100 MG CAPS 0970555 DOCUSATE SODIUM Inactive LOMOTIL 2.5-0.025 MG ORAL TABS take 1-2 tabs PO after each stool, no more than 8 in 24 hours LOMOTIL 2.5-0.025 MG ORAL TABS 5317449 DIPHENOXYLATE-ATROPINE Inactive ZOFRAN 4 MG TABS 1 po q4hr PRN Nausea ZOFRAN 4 MG TABS 929307 ONDANSETRON HCL Inactive HYDROCODONE-ACETAMINOPHEN 5-325 MG TABS 2 tabs by mouth three times daily for pain HYDROCODONE-ACETAMINOPHEN 5-325 MG TABS 454622 HYDROCODONE-ACETAMINOPHEN Inactive ZOLPIDEM TARTRATE 10 MG TABS take at bedtime ZOLPIDEM TARTRATE 10 MG TABS 418623 ZOLPIDEM TARTRATE Inactive LISINOPRIL 20 MG TABS 1 BID LISINOPRIL 20 MG TABS 482177 LISINOPRIL Inactive TRAVATAN Z 0.004 % SOLN 1 gtt each eye daily TRAVATAN Z 0.004 % SOLN TRAVOPROST Inactive LATUDA 60 MG ORAL TABS Take one by mouth daily LATUDA 60 MG ORAL TABS LURASIDONE HCL Inactive CEFDINIR 300 MG CAPS by mouth twice a day CEFDINIR 300 MG CAPS 578868 CEFDINIR Inactive AZITHROMYCIN 500 MG SOLR 1 po q day AZITHROMYCIN 500 MG SOLR 54948550349 AZITHROMYCIN Inactive AMOXICILLIN 500 MG CAPS 2 po BID x 10 days AMOXICILLIN 500 MG CAPS 226696 AMOXICILLIN Inactive PENICILLIN V POTASSIUM 500 MG TABS 1 pill by mouth three times daily PENICILLIN V POTASSIUM 500 MG TABS 522921 PENICILLIN V POTASSIUM Inactive KEFLEX 500 MG CAP 1 po BID x 7 days KEFLEX 500 MG CAP 408239 CEPHALEXIN Inactive Immunizations Vaccine Administration Date Value [...] Fluvirin, Fluarix, Agriflu(>=18 yo)) Fluzone (>3 yrs.) [[id number]] Influenza, seasonal, injectable pneumococcal immunization administered Pneumovax [...] Panel - Chemistry sodium, serum 137 mmol/L 269-605 8174/10/12 potassium, serum 4.8 mmol/L 3.5-5.2 chloride, serum 102 mmol/L 98-107 carbon dioxide, venous blood 27.6 mmol/L 21.0-32.0 blood glucose 168 mg/dL 65-110 calcium, serum 9.0 mg/dL 8.5-10.1 urea nitrogen, blood 15 mg/dL 7-18 creatinine, serum 1.04 mg/dL 0.55-1.30 sodium, serum 138 mmol/L 644-945 8417/11/11 potassium, serum 4.7 mmol/L 3.5-5.2 chloride, serum [...] % 11.6-14.8 platelet count 240 10^3/MM^3 10*3/mm3 269-702 9280/11/11 leukocyte count, blood 9.6 10^3/MM^3 10*3/mm3 4.6-10.2 [...] Acid - Chemistry cholesterol, serum 187 mg/dL 490-041 0748/06/14 triglyceride, serum, fasting 246 mg/dL 30-200 HDL [...] negative Encounters Code Encounter Date Provider Facility CPT-74324 Level 3 Est. Patient 17:40:16 CDT Mima Erazo [facility] CPT-21586 Level 3 Est. Patient 14:34:52 CDT Vanessa Hickey MD [facility] CPT-93355 Level 3 Est. Patient 16:27:51 CDT Mima Erazo [facility] CPT-01267 Level 3 Est. Patient 14:39:00 [employer] Vanessa Hickey MD [facility] CPT-26390 Level 2 Est. Patient 18:43:34 CDT Mima Erazo [facility] CPT-01613 Level 3 Est. Patient 16:22:09 CDT Cherelle Avila [facility] CPT-44462 Level 4 Est. Patient 17:55:14 CDT Mima Erazo [facility] CPT-21053 Level 2 Est. Patient 17:13:21 CDT Alina Castaneda MD [facility]-00903 Level 3 Est. Patient 14:46:15 CDT Vanessa Hickey MD [facility]-33470 Level 3 Est. Patient 09:34:56 CDT Alina Castaneda MD [facility]14154 Level 3 Est. Patient 21:40:19 CDT Mima Erazo [facility]-59450 Level 3 Est. Patient 09:26:40 CDT Marvel Charles [facility]-05421 Level 3 Est. Patient 12:36:43 CDT Vanessa Hickey MD [facility]92220 Level 3 Est. Patient 12:57:49 CDT Vanessa Hickey MD [facility]28144 Level 3 Est. Patient 00:28:25 CDT Alina Castaneda MD [facility]88813 Level 2 Est. Patient 12:52:14 CDT Alina Castaneda MD [facility]44653 Level 3 Est. Patient 11:51:18 [employer] Alina Castaneda MD [facility]-95576 Level 3 Est. Patient 10:09:22 [employer] Alina Castaneda MD [facility]72678 Level 3 Est. Patient 14:36:26 [employer] Marvel Charles [facility]29588 Level 3 Est. Patient 13:34:47 [employer] Alina Castaneda MD [facility]60558 Level 3 Est. Patient 19:52:08 [employer] Alina Castaneda MD [facility]41454 Level 3 Est. Patient 10:01:51 [employer] Marvel Charles [facility]-48238 Level 3 Est. Patient 21:54:06 CDT Vanessa Hickey MD [facility]-84735 Level 3 Est. Patient 08:54:46 CDT Alina Castaneda MD [facility]-96894 Level 3 Est. Patient 09:32:11 CDT Marvel Araceli [facility]-79203 Level 3 Est. Patient 12:02:49 CDT Alina Castaneda MD [facility]08910 Level 3 Est. Patient 19:17:33 CDT Alina Castaneda MD [facility]89817 Level 3 Est. [facility]19:10 [facility]-41050 Level 3 Est. Patient 08:20:05 CDT Alina Castaneda MD [facility]-74844 Level 3 Est. Patient 15:17:18 CDT Alina Castaneda MD [facility]87816 Level 3 Est. Patient 14:25:36 [employer] [facility]45164 Level 3 Est. Patient 10:09:15 [employer] [facility]-89260 Level 3 Est. Patient 21:28:43 CDT Alina Castaneda MD [facility]13688 Level 3 Est. Patient 15:20:11 CDT [place] [facility]-65846 Level 4 Est. Patient 19:08:12 CDT Alina Castaneda MD [facility]00541 Level 3 Est. Patient 15:06:39 CDT [facility] Araceli [facility]-33677 Level 4 Est. Patient 17:48:15 CDT Alina Castaneda MD [facility]-84574 Level 3 Est. Patient 14:53:49 CDT Alina Castaneda MD [facility]-49643 Level 3 Est. Patient 09:35:16 CDT Alina Castaneda MD [facility]-72390 Level 3 Est. Patient 12:23:22 CDT Alina Castaneda MD [facility]-38778 Level 3 Est. Patient 16:19:15 CDT Alina Catsaneda MD [facility]-33566 Level 3 Est. Patient 21:39:56 [employer] Alina Castaneda MD [facility]-81319 Level 4 Est. Patient 14:12:56 [employer] Alina Castaneda MD [facility]-02093 Level 2 Est. Patient 15:34:57 [employer] Alina Castaneda MD [facility]-65970 Level 3 Est. Patient 12:17:04 [employer] Alina Castaneda MD [facility]-83876 Level 3 Est. Patient 09:18:18 [employer] Marvel [facility]-98798 Level 2 Est. Patient 21:50:24 CDT Alina Castaneda MD [facility]-52776 Level 3 Est. Patient 09:17:28 CDT Marvel Charles [facility]-53162 Level 4 Est. Patient 18:54:02 CDT Alina Castaneda MD [facility]86936 Level 3 Est. Patient 10:47:10 CDT Alina Castaneda MD [facility]-60319 Level 3 Est. Patient 09:22:20 CDT Marvel Charles [facility] CPT-06973 Level 3 Est. Patient 16:39:43 [facility] Level 3 Est. Patient 16:05:16 CDT Alina Castaneda MD [facility] CPT-05658 Level 3 Est. Patient 00:29:15 CDT Alina Castaneda MD [facility] CPT-58031 Level 3 Est. Patient 10:49:22 [employer] Marvel Thurstonestela [facility] CPT-99690 Level 3 Est. Patient 21:30:19 [employer] Alina Castaneda MD [facility] CPT-34558 Level 4 Est. Patient 17:04:11 [employer] [facility]17 Level 3 Est. Patient 15:34:11 [employer] [facility] Level 2 Est. Patient 12:51:58 [employer] Alina Castaneda MD [facility] CPT-45145 Level 3 Est. Patient 13:20:01 [employer] Alina Castaneda MD [facility] CPT-70705 Level 3 Est. Patient 09:23:35 CDT Alina Castaneda MD [facility] Procedures Code Procedure Name Date Entry Date Standard Description CPT-TCMM Transitional Care Mgmt-Moderate 10:25:31 CDT CPT-73360 Bladder Scan 14:34:53 CDT CPT-15383 Bladder Scan 14:39:01 [employer] CPT-TCMM Transitional Care Mgmt-Moderate 10:30:19 [employer] CPT-69604 Bladder Scan 12:36:44 CDT CPT-74993 Bladder Scan 21:54:06 CDT CPT-G0008 Administration of Influenza Virus Vaccine 13:05:26 CDT CPT-64706 Fluzone Quadrivalent Intramuscular Suspension 0.5 ML 13: 05:26 CDT CPT-01582 Administration single or combination vaccine inc oral 11 :49:51 CDT CPT-33218 Pneumovax 11:49:51 CDT CPT-54368 Ribs unilateral 2V 12:37:22 [employer] CPT-12907 Chest 2V Frontal and Lat 17:15:26 CDT CPT-11165 Abx/Therapy Injection 18:54:02 CDT CPT-J0696 Rocephin 1000 mg (Ceftriaxone) 16:00:32 CDT CPT-62160 Chest 2V Frontal and Lat 15:26:45 CDT CPT-94684 Chest 2V Frontal and Lat 10:23:27 CDT CPT-60359 Venipuncture Draw Fee 10:11:00 CDT CPT-97507 Administration single or combination vaccine inc oral 11 :56:38 CDT CPT-43815 Influenza split virus > age 3 11:56:38 CDT CPT-00331 Venipuncture Draw Fee 08:49:54 [employer] CPT-44553 EKG Trac and Interp 17:54:19 [employer]
--- OUTSIDE RECORDS SUMMARY | 2018-07-02 13:41 | XMS REPORT | Clinical Summary ---
Author Author Admin, TERELL Organization [facility] [employer] Address Unknown Phone Unavailable Allergies, Adverse Reactions, [...] PhD Asthma, unspecified OBSESSIVE-COMPULSIVE DISORDER 300.3 Active Alnia Castaneda MD PhD Obsessive-compulsive disorders GLAUCOMA NOS 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 Erazo DOMAIN ARCHITECT Benign paroxysmal positional vertigo Vertigo, benign paroxysmal position 386.11 Inactive Mima Erazo DOMAIN ARCHITECT Benign paroxysmal positional vertigo High-risk sexual behavior V69.2 Active Alina Castaneda MD PhD High-risk sexual behavior Erectile dysfunction 302.72 Active Alina Castaneda MD PhD Psychosexual dysfunction with inhibited sexual excitement Constipation 564.00 Active Alina Castaneda MD PhD Constipation, unspecified Skin lesion 709.9 Active Alina Castaneda MD PhD Unspecified disorder of skin and subcutaneous tissue Malaise and fatigue 780.79 Active Cherelle Speaks DOMAIN ARCHITECT Other malaise and fatigue Diarrhea 787.91 Active Cherelle Speaks DOMAIN ARCHITECT Diarrhea PHARYNGITIS 462 Active Cherelle Speaks DOMAIN ARCHITECT Acute pharyngitis Colitis 558.9 Active Mima Erazo DOMAIN ARCHITECT Other and unspecified noninfectious gastroenteritis and colitis Chronic pain - on daily narcotics 338.29 Active Mason Loredo MD Other chronic pain Nocturia Active Vanessa Hickey MD Nocturia Symptom, polydipsia 783.5 Active Vanessa Hickey MD Polydipsia WOUND, OPEN, NOSE ICD-873.20 Inactive Alina Castaneda MD PhD DIABETES, TYPE 2 ICD-250.00 Inactive Alina Castandea MD PhD HYPERTENSION ICD-401.9 Inactive Alina Castaneda MD PhD URI ICD-465.9 Inactive Alina Castaneda MD PhD FH STROKE ICD-V17.1 Inactive Marvel MARROQUIN FATIGUE ICD-780.79 Inactive Alina Castaneda MD PhD DIABETES MELLITUS, TYPE II, UNCONTROLLED ICD-250.02 Inactive Marvel MARROQUIN UNSPECIFIED TACHYCARDIA ICD-785.0 Inactive Alina Castaneda MD PhD ABNORMAL HEART RHYTHMS ICD-427.9 Inactive Alina Castaneda MD PhD PROBLEMS RELATED TO HIGH-RISK SEXUAL BEHAVIOR ICD-V69.2 Inactive Alina Castaneda MD PhD CHEST COUGH ICD-786.2 Roro Castaneda MD PhD SINUSITIS, ACUTE ICD-461.9 Inactive Alina Castaneda MD PhD BRONCHITIS, ACUTE ICD-466.0 Roro Castaneda MD PhD PNEUMONIA, ORGANISM UNSPECIFIED ICD-486 Roro Castaneda MD PhD RIB PAIN, RIGHT SIDED ICD-786.50 Roro Castaneda MD PhD CHEST PAIN ICD-786.50 Inactive Alina Castaneda MD PhD DIABETIC HYPOGLYCEMIA, TYPE II ICD-250.80 Inactive Marvel 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 Roro Castaneda MD PhD SKIN LESION ICD-709.9 Roro Castaneda MD PhD SPECIAL SCREENING FOR [...] atypical ICD-786.59 Inactive Alina Castaneda MD PhD Diabetes mellitus, type II, uncontrolled ICD-250.02 Inactive Alina Castaneda MD PhD SINUSITIS, ACUTE ICD-461.9 Inactive Alina Castaneda MD PhD Medication List Medication Instructions Start Date Stop Date Generic Name NDC Status Provider Patient Instruction EFFEXOR XR 37.5 MG ORAL [id number] Take one by mouth daily VENLAFAXINE HCL 86508830975 Active Mima Vadimum ALBAN Active TRAVATAN Z 0.004 % OPHTH SOLN 1 drop each eye daily TRAVOPROST 62584238155 Active Mima Vadimum DOMAIN ARCHITECT Active FLUVOXAMINE MALEATE 50 MG ORAL TABS 1 tab by mouth daily FLUVOXAMINE MALEATE 72462183930 No Longer Active Mima Vadimum DOMAIN ARCHITECT Active MORPHINE SULFATE ER 30 MG ORAL CR-TABS Take one capsule BID MORPHINE SULFATE 85412263391 Active Mima Jeffkum DOMAIN ARCHITECT Active TRUEPLUS LANCETS 30G MISC 3x a day LANCETS 68042312744 Active Marvel Charles EXTRACTOR LOADER AND UNLOADER Active TRUE METRIX METER W/DEVICE KIT Check blood sugars 3x/day BLOOD GLUCOSE MONITORING SUPPL 48586467419 Active Marvel Mackenzieglari EXTRACTOR LOADER AND UNLOADER Active TRUE METRIX BLOOD GLUCOSE TEST INVITR STRP Check blood sugars 3x/day. GLUCOSE BLOOD 32632176315 Active Marvel Mackenzieglari EXTRACTOR LOADER AND UNLOADER Active VITAMIN D 2000 UNIT ORAL CAPS Take one by mouth daily CHOLECALCIFEROL 31234631478 Active Mima Yokum DOMAIN ARCHITECT Active LATUDA 60 MG ORAL TABS Take one by mouth daily LURASIDONE HCL 89818298345 No Longer Active Mima Yokum DOMAIN ARCHITECT Active HUMALOG KWIKPEN 100 UNIT/ML SC SOPN sliding scale if needed INSULIN LISPRO (HUMAN) 52708213660 Active Mima Yokum DOMAIN ARCHITECT Active TRAZODONE HCL 100 MG TABS 1 every night to prevent headaches TRAZODONE HCL 52543331990 Active Gabrielle Madl COAL CHEMIST Active LATUDA 60 MG ORAL TABS 1 tab daily LURASIDONE HCL 37446685868 Active Gabrielle Madl COAL CHEMIST Active CLONAZEPAM 1 MG TABS 1 pill by mouth three times daily CLONAZEPAM 21044347127 Active Gabrielle Madl COAL CHEMIST Active [facility] MILK OF MAGNESIA 400 MG/5ML ORAL SUSP 30ml by mouth bid prn MAGNESIUM HYDROXIDE 61894923329 Active Mason Loredo MD Active TYLENOL 8 HOUR 650 MG ORAL CR-TABS 1 tab QID prn ACETAMINOPHEN 39674328648 Active Mason Loredo MD Active MYLANTA GAS RELIEF MAXIMUM STR 125 MG ORAL CAPS 30cc every 4 hours prn 12/01 SIMETHICONE 53932657836 Active Mason Loredo MD Active IMODIUM A-D 2 MG ORAL TABS 1 tab QID as needed LOPERAMIDE HCL 56951640740 Active Mason Loredo MD Active TRAVATAN Z 0.004 % SOLN 1 gtt each eye daily TRAVOPROST 82056993298 No Longer Active Mason Loredo MD Active LISINOPRIL 20 MG TABS 1 BID LISINOPRIL 04368087391 No Longer Active Mason Loredo MD Active LEVEMIR FLEXTOUCH 100 UNIT/ML SC SOPN 60 units SQ each evening, for diabetes INSULIN DETEMIR 14378932146 Active Mima Erazo APRN Active ZOLPIDEM TARTRATE 10 MG TABS take at bedtime ZOLPIDEM TARTRATE 60154473735 No Longer Active Mason Loredo MD Active HYDROCODONE-ACETAMINOPHEN 5-325 MG TABS 2 tabs by mouth three times daily for pain HYDROCODONE-ACETAMINOPHEN 91451013485 No Longer Active Mason Loredo MD Active ZOFRAN 4 MG TABS 1 po q4hr PRN Nausea ONDANSETRON HCL 12943494519 No Longer Active Mason Loredo MD Active LOMOTIL 2.5-0.025 MG ORAL TABS take 1-2 tabs PO after each stool, no more than 8 in 24 hours DIPHENOXYLATE-ATROPINE 92083489794 No Longer Active Mason Loredo MD Active COLACE 100 MG CAPS 1 pill by mouth twice daily, for constipation DOCUSATE SODIUM 63666970046 No Longer Active Mima Erazo APRN Active FLONASE ALLERGY RELIEF 50 MCG/ACT NASAL SUSP One spray each nostril BID x 1 week then daily FLUTICASONE PROPIONATE 97073858361 Active Mima Erazo APRN Active BD PEN NEEDLE MINI U/F 31G X 5 MM MISC 4 a day INSULIN PEN NEEDLE 87813265351 Active Marvel MARROQUIN Active AMITIZA 24 MCG ORAL CAPS Take one capsule BID for constipation LUBIPROSTONE 39559328844 Active Mima Erazo APRN Active TRUEPLUS LANCETS 30G MISC 3 a day LANCETS 16084724855 Active Marvel MARROQUIN Active TOLTERODINE TARTRATE 2 MG TABS 1 pill twice daily, for bladder TOLTERODINE TARTRATE 99422026083 No Longer Active Vanessa Hickey MD Active AMITIZA 24 MCG ORAL CAPS Take one capsule BID for constipation. LUBIPROSTONE 68214538336 No Longer Active Vanessa Hickey MD Active FLUVOXAMINE MALEATE 100 MG ORAL TABS take one tab every AM et HS, and take 1/ 2 tab at noon FLUVOXAMINE MALEATE 80137941530 Active Grace Azam RMA Active METOPROLOL SUCCINATE 100 MG [id number] 1 by mouth daily for blood pressure METOPROLOL SUCCINATE 94533661047 No Longer Active Grace Azam RMA Active METFORMIN HCL ER 500 MG [id number]-JFE Take three tablets by mouth everyday METFORMIN HCL 99705762285 No Longer Active Grace Azam RMA Active LOVAZA 1 GM CAPS 4 daily (for triglycerides) OMEGA-3- ACID ETHYL ESTERS 64100070109 No Longer Active Grace Azam RMA Active TRAZODONE HCL 100 MG ORAL TABS 1 tab by mouth for sleep TRAZODONE HCL 82918374656 No Longer Active Grace Azam RMA Active NOVOFINE 32G X 6 MM MISC use one four times per day INSULIN PEN NEEDLE 60944055014 No Longer Active Grace Azam RMA Active BACTROBAN 2 % CREAM Apply to affected area BID for up to 10 days MUPIROCIN CALCIUM 11035790583 No Longer Active Grace Azam RMA Active KEFLEX 500 MG CAP 1 po BID x 7 days CEPHALEXIN 46668387775 No Longer Active Cherelle Avila APRN Active FLUVOXAMINE MALEATE 100 MG TABS Take one (1) tablet by mouth am, 1/2 at noon FLUVOXAMINE MALEATE 52692951239 No Longer Active Mimacecily Erazo DOMAIN ARCHITECT Active CORICIDIN HBP CONGESTION/COUGH 10-200 MG ORAL CAPS Take as directed on box as needed for cold/flu symptoms DEXTROMETHORPHAN-GUAIFENESIN 01361429787 Active Cherelle Speaks DOMAIN ARCHITECT Active OMEGA-3 300 MG ORAL CAPS 4 caps by mouth daily OMEGA-3 FATTY ACIDS 45286745840 Active Mima Yokum DOMAIN ARCHITECT Active FLUVOXAMINE MALEATE 100 MG ORAL TABS Take 1/2 tab at noon FLUVOXAMINE MALEATE 09236974915 No Longer Active Cherelle Avila ALBAN Active [facility] LUBRICANT EYE DROPS 0.4-0.3 % OPHTH SOLN POLYETHYL GLYCOL-PROPYL GLYCOL 22886305354 Active Mima Erazo DOMAIN ARCHITECT Active MIRALAX POWD 17g by mouth daily, for constipation POLYETHYLENE GLYCOL 3350 80958573197 Active Alina Castaneda MD PhD Active TRUETEST TEST STRP check blood sugars 3x/day GLUCOSE BLOOD 07761137756 Active Maliheh Ziglari EXTRACTOR LOADER AND UNLOADER Active ACCU-CHEK ROSA UZMA Use device to check blood sugars BLOOD GLUCOSE MONITORING SUPPL 45184165377 No Longer Active Maliheh Ziglari EXTRACTOR LOADER AND UNLOADER Active ACCU-CHEK ROSA INVITR STRP use strips with device to check blood sugars 3 times daily GLUCOSE BLOOD 78431104036 No Longer Active MalDysonicseh Ziglari EXTRACTOR LOADER AND UNLOADER Active VERAPAMIL HCL ER 180 MG ORAL CR-TABS 1 pill by mouth twice daily, for migraine prevention VERAPAMIL HCL 90645629433 Active Mima Erazo APRN Active CYCLOBENZAPRINE HCL 10 MG TABS 1 tablet by mouth three times daily, scheduled CYCLOBENZAPRINE HCL 31618006567 No Longer Active Alina Castaneda MD PhD Active HUMALOG 100 UNIT/ML SOLN Take 20 units with breakfast, 10u with lunch and suppetr. INSULIN LISPRO (HUMAN) 97229040978 No Longer Active Alina Castaneda MD PhD Active TRUETEST TEST STRP check sugars 4x/day GLUCOSE BLOOD 57134449449 No Longer Active Alina Castaneda MD PhD Active MORPHINE SULFATE 30 MG TABS 1 pill by mouth twice daily, for pain MORPHINE SULFATE 02111288589 No Longer Active Mason Loredo MD Active ACYCLOVIR 400 MG ORAL TABS 1 pill three times daily x 5 days, for cold sore outbreak ACYCLOVIR 00208338645 No Longer Active Alina Castaneda MD PhD Active PENICILLIN V POTASSIUM 500 MG TABS 1 pill by mouth three times daily PENICILLIN V POTASSIUM 04206745769 No Longer Active Alina Castaneda MD PhD Active UROXATRAL 10 MG [id number] Take 1 tablet by mouth daily ALFUZOSIN HCL 11040274741 No Longer Active Alina Castaneda MD PhD Active THIOTHIXENE 5 MG CAPS by mouth twice a day THIOTHIXENE 72037453779 No Longer Active Alina Castaneda MD PhD Active ZYPREXA 7.5 MG TABS 1 at HS OLANZAPINE 82562459936 No Longer Active Alina Castaneda MD PhD Active BD INSULIN SYRINGE 28G X 1/2" 1 ML MISC 1 four times per day INSULIN SYRINGE-NEEDLE U-100 55500479222 Active Marvel Charles EXTRACTOR LOADER AND UNLOADER Active DETROL LA 4 MG [id number]-UNP Take 1 tablet by mouth daily TOLTERODINE TARTRATE 45007656142 No Longer Active Alina Castaneda MD PhD Active TERESE CONTOUR TEST STRP monitor blood sugars 3x/day GLUCOSE BLOOD 99782951280 No Longer Active Alina Castaneda MD PhD Active EQL TRUETEST TEST STRP Test blood sugar TID GLUCOSE BLOOD 32027296890 No Longer Active Alina Castaneda MD PhD Active FLUTICASONE PROPIONATE 50 MCG/ACT SUSP 2 sprays each nostril qDay x 30 days FLUTICASONE PROPIONATE 30477292986 No Longer Active Alina Castaneda MD PhD Active IBUPROFEN 200 MG TABS 1 Q 6 hr. PRN IBUPROFEN 61979096105 No Longer Active Alina Castaneda MD PhD Active NIACIN ER 500 MG CR-TABS 4 qHS (for triglycerides) NIACIN 54975266938 No Longer Active Alina Castaneda MD PhD Active ALFUZOSIN HCL ER 10 MG ZD38V-TTR 1 tablet daily ALFUZOSIN HCL 01302289761 Active Mima Erazo DOMAIN ARCHITECT Active SAPHRIS 5 MG SUBL by mouth twice a day ASENAPINE MALEATE 62029666035 No Longer Active Marvel Mackenzieglari EXTRACTOR LOADER AND UNLOADER Active ACETAMINOPHEN 500 MG TABS 2 Q 6 hr. PRN ACETAMINOPHEN 94188540552 No Longer Active Maliheh Ziglari EXTRACTOR LOADER AND UNLOADER Active ORPHENADRINE CITRATE ER 100 MG WH59E-YSJ 1 every 12 hr. as needed ORPHENADRINE CITRATE 02690590762 No Longer Active Alina Castaneda MD PhD Active NIACIN CR 500 MG CR-TABS 2 qHS NIACIN 31168088099 No Longer Active Alina Castaneda MD PhD Active AMOXICILLIN 500 MG CAPS 2 po BID x 10 days AMOXICILLIN 84002524031 No Longer Active Alina Castaneda MD PhD Active HYDROCODONE-ACETAMINOPHEN 7.5-325 MG TABS 1 four times a day as needed for pain HYDROCODONE-ACETAMINOPHEN 29911227956 No Longer Active Alina Castaneda MD PhD Active DOXEPIN HCL 10 MG CAPS Take 1 tablet by mouth daily DOXEPIN HCL 29269846270 No Longer Active Salina Han [facility] Active NAVANE 10 MG CAPS 1/2 tablet twice a day THIOTHIXENE No Longer Active Salina Han [facility] Active CYCLOBENZAPRINE HCL 10 MG TABS 1/2 tablet by mouth every 8 hours as needed for muscle spasms CYCLOBENZAPRINE HCL 47509153256 No Longer Active Alina Castaneda MD PhD Active BACTROBAN 2 % CREAM apply to ear and nose twice daily MUPIROCIN CALCIUM 03207479935 No Longer Active Alina Castaneda MD PhD Active HYDROCODONE-ACETAMINOPHEN 5-325 MG TABS take one tablet by mouth every four hours as needed for pain HYDROCODONE-ACETAMINOPHEN 21774834718 No Longer Active Alina Castaneda MD PhD Active ZYPREXA 5 MG TABS take one tablet by mouth every evening OLANZAPINE 56637614258 No Longer Active Alina Castaneda MD PhD Active ALBUTEROL SULFATE 0.083 % NEBU SOLN one vial per nebulizer TID and PRN cough/ soa ALBUTEROL SULFATE 64131262224 No Longer Active Alina Castaneda MD PhD Active GUAIFENESIN 600 MG EB07Z-KDC 1 tablet by mouth twice daily if needed for cough GUAIFENESIN 32510028974 No Longer Active Marvel MARROQUIN Active AZITHROMYCIN 500 MG SOLR 1 po q day AZITHROMYCIN 62032289442 No Longer Active Alina Castaneda MD PhD Active PROMETHAZINE-CODEINE 6.25-10 MG/5ML SYRP 1 tsp po q 6 hours prn cough PROMETHAZINE-CODEINE 43827954192 No Longer Active Alina Castaneda MD PhD Active CEFDINIR 300 MG CAPS by mouth twice a day CEFDINIR 06018751247 No Longer Active Alina Castaneda MD PhD Active METFORMIN HCL 500 MG AW34Z-MVM Take 3 tablets by mouth everyday METFORMIN HCL 05599110249 No Longer Active Alina Castaneda MD PhD Active LEVEMIR 100 UNIT/ML SOLN 90 units SQ qHS INSULIN DETEMIR 64029298413 No Longer Active Marvel MARROQUIN Active TOPROL XL 100 MG [id number] 1 @ HS METOPROLOL SUCCINATE 59221784715 No Longer Active Marvel MARROQUIN Active ALLOPURINOL 300 MG TABS Take one by mouth daily ALLOPURINOL 33855816208 Active Mima Yoeloinaum DOMAIN ARCHITECT Active ZYPREXA 10 MG TABS Take one by mouth daily OLANZAPINE 95194715991 No Longer Active Alina Castaneda MD PhD Active NOVOLOG 100 UNIT/ML SOLN 40 units with every meal INSULIN ASPART 78876683264 No Longer Active Alina Castaneda MD PhD Active VERAPAMIL HCL CR 120 MG TAB CR 1 qPM VERAPAMIL HCL 26726234998 No Longer Active Salina Han RMA Active ZYPREXA 15 MG TABS Take 1 tablet by mouth daily OLANZAPINE 37856540336 No Longer Active Marvel MENDOZAP Active ALBUTEROL SULFATE (2.5 MG/3ML) 0.083% NEBU 1 neb tid and prn cough ALBUTEROL SULFATE 87409201238 No Longer Active Alina Castaneda MD PhD Active LANTUS 100 UNIT/ML SOLN 60 units sq q hs INSULIN GLARGINE 74902300216 No Longer Active CRYSTAL uSarez Active ALBUTEROL SULFATE (2.5 MG/3ML) 0.083% NEBU 1 neb tid and prn cough ALBUTEROL SULFATE (2.5 MG/3ML) 0.083% NEBU 034732 ALBUTEROL SULFATE Inactive ZYPREXA 15 MG TABS Take 1 tablet by mouth daily ZYPREXA 15 MG TABS 092599 OLANZAPINE Inactive VERAPAMIL HCL CR 120 MG TAB CR 1 qPM VERAPAMIL HCL CR 120 MG TAB CR VERAPAMIL HCL Inactive ZYPREXA 10 MG TABS Take one by mouth daily ZYPREXA 10 MG TABS 531635 OLANZAPINE Inactive TOPROL XL 100 MG CL28Z-DEJ 1 @ HS TOPROL XL 100 MG QC37L-OEX METOPROLOL SUCCINATE Inactive LEVEMIR 100 UNIT/ML SOLN 90 units SQ qHS LEVEMIR 100 UNIT/ML SOLN INSULIN DETEMIR Inactive PROMETHAZINE-CODEINE 6.25-10 MG/5ML SYRP 1 tsp po q 6 hours prn cough PROMETHAZINE-CODEINE 6.25-10 MG/5ML SYRP 051379 PROMETHAZINE- CODEINE Inactive GUAIFENESIN 600 MG FD21Z-MMB 1 tablet by mouth twice daily if needed for cough GUAIFENESIN 600 MG PY44F-TUC GUAIFENESIN Inactive ALBUTEROL SULFATE 0.083 % NEBU SOLN one vial per nebulizer TID and PRN cough/ soa ALBUTEROL SULFATE 0.083 % NEBU SOLN 140251 ALBUTEROL SULFATE Inactive ZYPREXA 5 MG TABS take one tablet by mouth every evening ZYPREXA 5 MG TABS 209769 OLANZAPINE Inactive HYDROCODONE-ACETAMINOPHEN 5-325 MG TABS take one tablet by mouth every four hours as needed for pain HYDROCODONE-ACETAMINOPHEN 5-325 MG TABS 175638 HYDROCODONE-ACETAMINOPHEN Inactive BACTROBAN 2 % CREAM apply to ear and nose twice daily BACTROBAN 2 % CREAM 457435 MUPIROCIN CALCIUM Inactive CYCLOBENZAPRINE HCL 10 MG TABS 1/2 tablet by mouth every 8 hours as needed for muscle spasms CYCLOBENZAPRINE HCL 10 MG TABS 521875 CYCLOBENZAPRINE HCL Inactive NAVANE 10 MG CAPS 1/2 tablet twice a day NAVANE 10 MG CAPS THIOTHIXENE Inactive DOXEPIN HCL 10 MG CAPS Take 1 tablet by mouth daily DOXEPIN HCL 10 MG CAPS 5183601 DOXEPIN HCL Inactive HYDROCODONE-ACETAMINOPHEN 7.5-325 MG TABS 1 four times a day as needed for pain HYDROCODONE-ACETAMINOPHEN 7.5-325 MG TABS 704279 HYDROCODONE-ACETAMINOPHEN Inactive NIACIN CR 500 MG CR-TABS 2 qHS NIACIN CR 500 MG CR- TABS NIACIN Inactive ORPHENADRINE CITRATE ER 100 MG IZ45L-HIB 1 every 12 hr. as needed ORPHENADRINE CITRATE ER 100 MG [id number]-ASJ ORPHENADRINE CITRATE Inactive ACETAMINOPHEN 500 MG TABS 2 Q 6 hr. PRN ACETAMINOPHEN 500 MG TABS 540639 ACETAMINOPHEN Inactive SAPHRIS 5 MG SUBL by mouth twice a day SAPHRIS 5 MG SUBL ASENAPINE MALEATE Inactive NIACIN ER 500 MG CR-TABS 4 qHS (for triglycerides) NIACIN ER 500 MG CR-TABS NIACIN Inactive IBUPROFEN 200 MG TABS 1 Q 6 hr. PRN IBUPROFEN 200 MG TABS 201812 IBUPROFEN Inactive FLUTICASONE PROPIONATE 50 MCG/ACT SUSP 2 sprays each nostril qDay x 30 days FLUTICASONE PROPIONATE 50 MCG/ACT SUSP 7973356 FLUTICASONE PROPIONATE Inactive EQL TRUETEST TEST STRP Test blood sugar TID EQL TRUETEST TEST STRP GLUCOSE BLOOD Inactive TERESE CONTOUR TEST STRP monitor blood sugars 3x/day TERESE CONTOUR TEST STRP GLUCOSE BLOOD Inactive DETROL LA 4 MG [id number]-YXY Take 1 tablet by mouth daily DETROL LA 4 MG RL06R-BEC TOLTERODINE TARTRATE Inactive ZYPREXA 7.5 MG TABS 1 at HS ZYPREXA 7.5 MG TABS 304790 OLANZAPINE Inactive THIOTHIXENE 5 MG CAPS by mouth twice a day THIOTHIXENE 5 MG CAPS 461193 THIOTHIXENE Inactive UROXATRAL 10 MG CL09C-PCS Take 1 tablet by mouth daily UROXATRAL 10 MG TQ59S-TIV ALFUZOSIN HCL Inactive ACYCLOVIR 400 MG ORAL TABS 1 pill three times daily x 5 days, for cold sore outbreak ACYCLOVIR 400 MG ORAL TABS 809449 ACYCLOVIR Inactive TRUETEST TEST STRP check sugars 4x/day TRUETEST TEST STRP GLUCOSE BLOOD Inactive HUMALOG 100 UNIT/ML SOLN Take 20 units with breakfast, 10u with lunch and suppetr. HUMALOG 100 UNIT/ML SOLN INSULIN LISPRO ( HUMAN) Inactive CYCLOBENZAPRINE HCL 10 MG TABS 1 tablet by mouth three times daily, scheduled CYCLOBENZAPRINE HCL 10 MG TABS 976360 CYCLOBENZAPRINE HCL Inactive ACCU-CHEK ROSA INVITR STRP use strips with device to check blood sugars 3 times daily ACCU-CHEK ROSA INVITR STRP GLUCOSE BLOOD Inactive ACCU-CHEK ROSA UZMA Use device to check blood sugars ACCU-CHEK ROSA UZMA BLOOD GLUCOSE MONITORING SUPPL Inactive FLUVOXAMINE MALEATE 100 MG ORAL TABS Take 1/2 tab at noon FLUVOXAMINE MALEATE 100 MG ORAL TABS 785195 FLUVOXAMINE MALEATE Inactive FLUVOXAMINE MALEATE 100 MG TABS Take one (1) tablet by mouth am, 1/2 at noon FLUVOXAMINE MALEATE 100 MG TABS 443051 FLUVOXAMINE MALEATE Inactive BACTROBAN 2 % CREAM Apply to affected area BID for up to 10 days BACTROBAN 2 % CREAM 145735 MUPIROCIN CALCIUM Inactive NOVOFINE 32G X 6 MM MISC use one four times per day NOVOFINE 32G X 6 MM MISC INSULIN PEN NEEDLE Inactive TRAZODONE HCL 100 MG ORAL TABS 1 tab by mouth for sleep TRAZODONE HCL 100 MG ORAL TABS 084359 TRAZODONE HCL Inactive LOVAZA 1 GM CAPS 4 daily (for triglycerides) LOVAZA 1 GM CAPS 280791 DWFDA-8-HLRX ETHYL ESTERS Inactive METFORMIN HCL ER 500 MG OU77W-MGB Take three tablets by mouth everyday METFORMIN HCL ER 500 MG PG76T-PIX METFORMIN HCL Inactive METOPROLOL SUCCINATE 100 MG FT43A-OOM 1 by mouth daily for blood pressure METOPROLOL SUCCINATE 100 MG FY72Y-GVR METOPROLOL SUCCINATE Inactive AMITIZA 24 MCG ORAL CAPS Take one capsule BID for constipation. AMITIZA 24 MCG ORAL CAPS LUBIPROSTONE Inactive TOLTERODINE TARTRATE 2 MG TABS 1 pill twice daily, for bladder TOLTERODINE TARTRATE 2 MG TABS 106589 TOLTERODINE TARTRATE Inactive COLACE 100 MG CAPS 1 pill by mouth twice daily, for constipation COLACE 100 MG CAPS 9946402 DOCUSATE SODIUM Inactive LOMOTIL 2.5-0.025 MG ORAL TABS take 1-2 tabs PO after each stool, no more than 8 in 24 hours LOMOTIL 2.5-0.025 MG ORAL TABS 9010471 DIPHENOXYLATE-ATROPINE Inactive ZOFRAN 4 MG TABS 1 po q4hr PRN Nausea ZOFRAN 4 MG TABS 846853 ONDANSETRON HCL Inactive HYDROCODONE-ACETAMINOPHEN 5-325 MG TABS 2 tabs by mouth three times daily for pain HYDROCODONE-ACETAMINOPHEN 5-325 MG TABS 592998 HYDROCODONE-ACETAMINOPHEN Inactive ZOLPIDEM TARTRATE 10 MG TABS take at bedtime ZOLPIDEM TARTRATE 10 MG TABS 723418 ZOLPIDEM TARTRATE Inactive LISINOPRIL 20 MG TABS 1 BID LISINOPRIL 20 MG TABS 097286 LISINOPRIL Inactive TRAVATAN Z 0.004 % SOLN 1 gtt each eye daily TRAVATAN Z 0.004 % SOLN TRAVOPROST Inactive LATUDA 60 MG ORAL TABS Take one by mouth daily LATUDA 60 MG ORAL TABS LURASIDONE HCL Inactive FLUVOXAMINE MALEATE 50 MG ORAL TABS 1 tab by mouth daily FLUVOXAMINE MALEATE 50 MG ORAL TABS 053343 FLUVOXAMINE MALEATE Inactive CEFDINIR 300 MG CAPS by mouth twice a day CEFDINIR 300 MG CAPS 218084 CEFDINIR Inactive AZITHROMYCIN 500 MG SOLR 1 po q day AZITHROMYCIN 500 MG SOLR 91286965406 AZITHROMYCIN Inactive AMOXICILLIN 500 MG CAPS 2 po BID x 10 days AMOXICILLIN 500 MG CAPS 509664 AMOXICILLIN Inactive PENICILLIN V POTASSIUM 500 MG TABS 1 pill by mouth three times daily PENICILLIN V POTASSIUM 500 MG TABS 260440 PENICILLIN V POTASSIUM Inactive KEFLEX 500 MG CAP 1 po BID x 7 days KEFLEX 500 MG CAP 614300 CEPHALEXIN Inactive Immunizations Vaccine Administration Date Value [...] Fluvirin, Fluarix, Agriflu(>=18 yo)) Fluzone (>3 yrs.) [[id number]] Influenza, seasonal, injectable pneumococcal immunization administered Pneumovax [...] HGBA1C - Chemistry sodium, serum 140 mmol/L 694-750 7151/11/09 potassium, serum 4.0 mmol/L 3.5-5.2 chloride, serum [...] Acid - Chemistry cholesterol, serum 187 mg/dL 222-614 7401/06/14 triglyceride, serum, fasting 246 mg/dL 30-200 HDL [...] negative Encounters Code Encounter Date Provider Facility CPT-23349 Level 3 Est. Patient 09:12:14 CREATIVE DIRECTOR Mima Erazo [facility] CPT-19250 Level 3 Est. Patient 16:52:51 CDT Vanessa Hickey MD [facility] CPT-36541 Level 3 Est. Patient 17:40:16 CDT Mima Erazo [facility] CPT-54790 Level 3 Est. Patient 14:34:52 CDT Vanessa Hickey MD [facility] CPT-24425 Level 3 Est. Patient 16:27:51 CDT Mima Erazo [facility] CPT-50500 Level 3 Est. Patient 14:39:00 CREATIVE DIRECTOR Vanessa Hickey MD [facility] CPT-84200 Level 2 Est. Patient 18:43:34 CDT Mima Erazo [facility] CPT-66304 Level 3 Est. Patient 16:22:09 CDT Cherelle Avila [facility] CPT-16172 Level 4 Est. Patient 17:55:14 CDT Mima Erazo [facility] CPT-08745 Level 2 Est. Patient 17:13:21 CDT Alina Castaneda MD [facility]-23237 Level 3 Est. Patient 14:46:15 CDT Vanessa Hickey MD [facility]-32021 Level 3 Est. Patient 09:34:56 CDT Alina Castaneda MD [facility]-92120 Level 3 Est. Patient 21:40:19 CDT Mima Erazo [facility] CPT-11128 Level 3 Est. Patient 09:26:40 CDT Marvel Charles [facility]-32607 Level 3 Est. Patient 12:36:43 CDT Vanessa Hickey MD [facility]-11803 Level 3 Est. Patient 12:57:49 CDT Vanessa Hickey MD [facility]-92641 Level 3 Est. Patient 00:28:25 CDT [facility] [facility]-78772 Level 2 Est. Patient 12:52:14 CDT Alina Castaneda MD [facility]-09601 Level 3 Est. Patient 11:51:18 CREATIVE DIRECTOR Alina Castaneda MD [facility]-42894 Level 3 Est. Patient 10:09:22 CREATIVE DIRECTOR Alina Castaneda MD [facility]-86815 Level 3 Est. Patient 14:36:26 CREATIVE DIRECTOR Marvel Charles [facility]458 Level 3 Est. Patient 13:34:47 CREATIVE DIRECTOR Alina Castaneda MD [facility]-50621 Level 3 Est. Patient 19:52:08 CREATIVE DIRECTOR Alina Castaneda MD [facility]89563 Level 3 Est. Patient 10:01:51 CREATIVE DIRECTOR Marvel Araceli [facility]-39010 Level 3 Est. Patient 21:54:06 CDT Vanessa Hickey MD [facility]-30174 Level 3 Est. Patient 08:54:46 CDT Alina Castaneda MD [facility]11513 Level 3 Est. Patient 09:32:11 [facility]T [facility]-35468 Level 3 Est. Patient 12:02:49 CDT Alina Castaneda MD [facility]-72548 Level 3 Est. Patient 19:17:33 CDT Alina Castaneda MD [facility]93085 Level 3 Est. Patient 13:19:10 CDT Marvel Charles [facility]-47695 Level 3 Est. Patient 08:20:05 CDT Alina Castaneda MD [facility]-17220 Level 3 Est. Patient 15:17:18 CDT Alina Castaneda MD [facility]-81148 Level 3 Est. Patient 14:25:36 CREATIVE DIRECTOR Marvel Charles [facility]31368 Level 3 Est. Patient 10:09:15 CREATIVE DIRECTOR Marvel Charles [facility]-96014 Level 3 Est. Patient 21:28:43 CDT Alina Castaneda MD [facility]17576 Level 3 Est. Patient 15:20:11 CDT Marvel Charles [facility] CPT-53151 Level 4 Est. Patient 19:08:12 CDT Alina Castaneda MD [facility]-42432 Level 3 Est. Patient 15:06:39 CDT Marvel Charles [facility] CPT-37476 Level 4 Est. Patient 17:48:15 CDT Alina Castaneda MD [facility] CPT-46781 Level 3 Est. Patient 14:53:49 CDT Alina Castaneda MD [facility]-73347 Level 3 Est. Patient 09:35:16 CDT Alina Castaneda MD [facility]-94803 Level 3 Est. Patient 12:23:22 CDT Alina Castaneda MD [facility] CPT-29814 Level 3 Est. Patient 16:19:15 CDT Alina Castaneda MD [facility] CPT-12867 Level 3 Est. Patient 21:39:56 CREATIVE DIRECTOR Alina Castaneda MD [facility] CPT-35355 Level 4 Est. Patient 14:12:56 CREATIVE DIRECTOR Alina Castaneda MD [facility] CPT-16895 Level 2 Est. Patient 15:34:57 CREATIVE DIRECTOR Alina Castaneda MD [facility] CPT-58926 Level 3 Est. Patient 12:17:04 CREATIVE DIRECTOR Alina Castaneda MD [facility]-13703 Level 3 Est. Patient 09:18:18 CREATIVE DIRECTOR Marvel Charles [facility] CPT-67648 Level 2 Est. Patient 21:50:24 CDT Alina Castaneda MD [facility]-36975 Level 3 Est. Patient 09:17:28 CDT Brooksjohn Charles [facility]-89309 Level 4 Est. Patient 18:54:02 CDT Alina Castaneda MD [facility]-08625 Level 3 Est. Patient 10:47:10 CDT Alina Castaneda MD [facility]26058 Level 3 Est. Patient 09:22:20 CDT Marvel Araceli [facility]-26082 Level 3 Est. Patient 16:39:43 CDT Marvel Araceli [facility]-17080 Level 3 Est. Patient 16:05:16 CDT Alina Castaneda MD [facility]-57246 Level 3 Est. Patient 00:29:15 CDT Alina Castaneda MD [facility]51747 Level 3 Est. Patient 10:49:22 CREATIVE DIRECTOR Brooksjohn Charles [facility]-49453 Level 3 Est. Patient 21:30:19 CREATIVE DIRECTOR Alina Castaneda MD [facility]-13956 Level 4 Est. Patient 17:04:11 CREATIVE DIRECTOR Brooksjohn Charles [facility]-15161 Level 3 Est. Patient 15:34:11 CREATIVE DIRECTOR Brookslashondanivia Araceli [facility]-68264 Level 2 Est. Patient 12:51:58 CREATIVE DIRECTOR Alina Castaneda MD [facility]-60403 Level 3 Est. Patient 13:20:01 CREATIVE DIRECTOR Alina Castaneda MD [facility]-37427 Level 3 Est. Patient 09:23:35 CDT Alina Castaneda MD PhD [facility] Procedures Code Procedure Name Date Entry Date Standard Description CPT-32365 HGBA1C - LAB USE ONLY 09:30:27 CREATIVE DIRECTOR CPT-33232 BMP - LAB USE ONLY 09:30:27 CREATIVE DIRECTOR CPT-31158 Venipuncture Draw Fee 09:30:26 CREATIVE DIRECTOR CPT-TCMM Transitional Care Mgmt-Moderate 10:25:31 CDT CPT-57358 Bladder Scan 14:34:53 CDT CPT-92811 Bladder Scan 14:39:01 CREATIVE DIRECTOR CPT-TCMM Transitional Care Mgmt-Moderate 10:30:19 CREATIVE DIRECTOR CPT-19405 Bladder Scan 12:36:44 CDT CPT-85401 Bladder Scan 21:54:06 CDT CPT-G0008 Administration of Influenza Virus Vaccine 13:05:26 CDT CPT-62041 Fluzone Quadrivalent Intramuscular Suspension 0.5 ML 13: 05:26 CDT CPT-47046 Administration single or combination vaccine inc oral 11 :49:51 CDT CPT-03682 Pneumovax 11:49:51 CDT CPT-91463 Ribs unilateral 2V 12:37:22 CREATIVE DIRECTOR CPT-57384 Chest 2V Frontal and Lat 17:15:26 CDT CPT-08177 Abx/Therapy Injection 18:54:02 CDT CPT-J0696 Rocephin 1000 mg (Ceftriaxone) 16:00:32 CDT CPT-70879 Chest 2V Frontal and Lat 15:26:45 CDT CPT-01079 Chest 2V Frontal and Lat 10:23:27 CDT CPT-28506 Venipuncture Draw Fee 10:11:00 CDT CPT-19952 Administration single or combination vaccine inc oral 11 :56:38 CDT CPT-90630 Influenza split virus > age 3 11:56:38 CDT CPT-46717 Venipuncture Draw Fee 08:49:54 CREATIVE DIRECTOR CPT-68471 EKG Trac and Interp 17:54:19 CREATIVE DIRECTOR
--- OUTSIDE RECORDS SUMMARY | 2018-07-02 13:43 | XMS REPORT | Clinical Summary ---
Author Author Admin, TERELL Organization [facility] [employer] Address Unknown Phone Unavailable Allergies, Adverse Reactions, 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 Erazo [employer] Benign paroxysmal positional vertigo Vertigo, benign paroxysmal position 386.11 Inactive Mima Erazo [employer] Benign paroxysmal positional vertigo High-risk sexual behavior V69.2 Active Alina Castaneda MD PhD High-risk sexual behavior Erectile dysfunction 302.72 Active Alina Castaneda MD PhD Psychosexual dysfunction with inhibited sexual excitement Constipation 564.00 Active Alina Castaneda MD PhD Constipation, unspecified Skin lesion 709.9 Active Alina Castaneda MD PhD Unspecified disorder of skin and subcutaneous tissue Malaise and fatigue 780.79 Active Cherelle Speaks [employer]UL[employer] Other malaise and fatigue Diarrhea 787.91 Active Cherelle Speaks [employer] Diarrhea PHARYNGITIS 462 Active Cherelle Speaks [employer] Acute pharyngitis Colitis 558.9 Active Mima Erazo [employer] Other and unspecified noninfectious gastroenteritis and colitis [...] MELLITUS, TYPE II, UNCONTROLLED ICD-250.02 Inactive Marvel MARORQUIN UNSPECIFIED TACHYCARDIA ICD-785.0 Inactive Alina Castaneda MD [...] Patient Instruction EFFEXOR XR 37.5 MG ORAL [id number] Take one by mouth daily VENLAFAXINE HCL 54534172376 Active Mima Vadimum ALBAN Active TRAVATAN Z 0.004 % OPHTH SOLN 1 drop each eye daily TRAVOPROST 67242705622 Active Mima Yokum [employer] Active FLUVOXAMINE MALEATE 50 MG ORAL TABS 1 tab by mouth daily FLUVOXAMINE MALEATE 32311829332 No Longer Active Mima Vadimum ALBAN Active MORPHINE SULFATE ER 30 MG ORAL CR-TABS Take one capsule BID MORPHINE SULFATE 99121846481 Active Mima Yokum [employer] Active TRUEPLUS LANCETS 30G MISC 3x a day LANCETS 07522450198 Active Marvel Charles [employer] Active TRUE METRIX METER W/DEVICE KIT Check blood sugars 3x/day BLOOD GLUCOSE MONITORING SUPPL 93895088694 Active Marvel Mackenzieglari [employer] Active TRUE METRIX BLOOD GLUCOSE TEST INVITR STRP Check blood sugars 3x/day. GLUCOSE BLOOD 62059984768 Active Marvel Mackenzieglari [employer] Active VITAMIN D 2000 UNIT ORAL CAPS Take one by mouth daily CHOLECALCIFEROL 92829631893 Active Mima Yokum [employer] Active LATUDA 60 MG ORAL TABS Take one by mouth daily LURASIDONE HCL 58019162021 No Longer Active Mima Yokum [employer] Active HUMALOG KWIKPEN 100 UNIT/ML SC SOPN sliding scale if needed INSULIN LISPRO (HUMAN) 09647660164 Active Mima Yokum [employer] Active TRAZODONE HCL 100 MG TABS 1 every night to prevent headaches TRAZODONE HCL 94800918333 Active Gabrielle Madl SOLARIS ADMINISTRATOR Active LATUDA 60 MG ORAL TABS 1 tab daily LURASIDONE HCL 44690498571 Active Gabrielle Madl SOLARIS ADMINISTRATOR Active CLONAZEPAM 1 MG TABS 1 pill by mouth three times daily CLONAZEPAM 62808778273 Active Gabrielle Madl SOLARIS ADMINISTRATOR Active [facility] MILK OF MAGNESIA 400 MG/5ML ORAL SUSP 30ml by mouth bid prn MAGNESIUM HYDROXIDE 08697142724 Active Mason Loredo MD Active TYLENOL 8 HOUR 650 MG ORAL CR-TABS 1 tab QID prn ACETAMINOPHEN 62017259275 Active Mason Loredo MD Active MYLANTA GAS RELIEF MAXIMUM STR 125 MG ORAL CAPS 30cc every 4 hours prn 12/01 SIMETHICONE 35626210077 Active Mason Loredo MD Active IMODIUM A-D 2 MG ORAL TABS 1 tab QID as needed LOPERAMIDE HCL 62325657124 Active Mason Loredo MD Active TRAVATAN Z 0.004 % SOLN 1 gtt each eye daily TRAVOPROST 60461207022 No Longer Active Mason Loredo MD Active LISINOPRIL 20 MG TABS 1 BID LISINOPRIL 97161952261 No Longer Active Mason Loredo MD Active LEVEMIR FLEXTOUCH 100 UNIT/ML SC SOPN 60 units SQ each evening, for diabetes INSULIN DETEMIR 99416780497 Active Mima Erazo APRN Active ZOLPIDEM TARTRATE 10 MG TABS take at bedtime ZOLPIDEM TARTRATE 14646687683 No Longer Active Mason Loredo MD Active HYDROCODONE-ACETAMINOPHEN 5-325 MG TABS 2 tabs by mouth three times daily for pain HYDROCODONE-ACETAMINOPHEN 83774829446 No Longer Active Mason Loredo MD Active ZOFRAN 4 MG TABS 1 po q4hr PRN Nausea ONDANSETRON HCL 76464724675 No Longer Active Mason Loredo MD Active LOMOTIL 2.5-0.025 MG ORAL TABS take 1-2 tabs PO after each stool, no more than 8 in 24 hours DIPHENOXYLATE-ATROPINE 21731249557 No Longer Active Mason Loredo MD Active COLACE 100 MG CAPS 1 pill by mouth twice daily, for constipation DOCUSATE SODIUM 27421552303 No Longer Active Mima Erazo APRN Active FLONASE ALLERGY RELIEF 50 MCG/ACT NASAL SUSP One spray each nostril BID x 1 week then daily FLUTICASONE PROPIONATE 77455142979 Active Mima Erazo APRN Active BD PEN NEEDLE MINI U/F 31G X 5 MM MISC 4 a day INSULIN PEN NEEDLE 54929650722 Active Marvel MARROQUIN Active AMITIZA 24 MCG ORAL CAPS Take one capsule BID for constipation LUBIPROSTONE 34313095794 Active Mima Erazo APRN Active TRUEPLUS LANCETS 30G MISC 3 a day LANCETS 00514075774 Active Marvel MARROQUIN Active TOLTERODINE TARTRATE 2 MG TABS 1 pill twice daily, for bladder TOLTERODINE TARTRATE 42748098257 No Longer Active Vanessa Hickey MD Active AMITIZA 24 MCG ORAL CAPS Take one capsule BID for constipation. LUBIPROSTONE 70424243230 No Longer Active Vanessa Hickey MD Active FLUVOXAMINE MALEATE 100 MG ORAL TABS take one tab every AM et HS, and take 1/ 2 tab at noon FLUVOXAMINE MALEATE 65481561146 Active Grace Azam RMA Active METOPROLOL SUCCINATE 100 MG [id number] 1 by mouth daily for blood pressure METOPROLOL SUCCINATE 25140667076 No Longer Active Grace Azam RMA Active METFORMIN HCL ER 500 MG [id number] Take three tablets by mouth everyday METFORMIN HCL 01197865661 No Longer Active Grace Azam RMA Active LOVAZA 1 GM CAPS 4 daily (for triglycerides) OMEGA-3- ACID ETHYL ESTERS 46723955806 No Longer Active Grace Azam RMA Active TRAZODONE HCL 100 MG ORAL TABS 1 tab by mouth for sleep TRAZODONE HCL 40924189440 No Longer Active Grace Azam RMA Active NOVOFINE 32G X 6 MM MISC use one four times per day INSULIN PEN NEEDLE 75910997596 No Longer Active Grace Azam RMA Active BACTROBAN 2 % CREAM Apply to affected area BID for up to 10 days MUPIROCIN CALCIUM 85448336969 No Longer Active Grace Azam RMA Active KEFLEX 500 MG CAP 1 po BID x 7 days CEPHALEXIN 44849904448 No Longer Active Cherelle Avila APRN Active FLUVOXAMINE MALEATE 100 MG TABS Take one (1) tablet by mouth am, 1/2 at noon FLUVOXAMINE MALEATE 56712728289 No Longer Active Mimacecily Erazo [employer]LE[employer] PULP Active CORICIDIN HBP CONGESTION/COUGH 10-200 MG ORAL CAPS Take as directed on box as needed for cold/flu symptoms DEXTROMETHORPHAN-GUAIFENESIN 36216743949 Active Cherelle Speaks [employer]UL[employer] Active OMEGA-3 300 MG ORAL CAPS 4 caps by mouth daily OMEGA-3 FATTY ACIDS 02437495574 Active Mima Yokum [employer] PUL[employer] Active FLUVOXAMINE MALEATE 100 MG ORAL TABS Take 1/2 tab at noon FLUVOXAMINE MALEATE 79157531975 No Longer Active Cherelle Avila APRN Active [facility] LUBRICANT EYE DROPS 0.4-0.3 % OPHTH SOLN POLYETHYL GLYCOL-PROPYL GLYCOL 09174905370 Active Mima Erazo APRN Active MIRALAX POWD 17g by mouth daily, for constipation POLYETHYLENE GLYCOL 3350 25730049491 Active Mima Erazo APRN Active TRUETEST TEST STRP check blood sugars 3x/day GLUCOSE BLOOD 28404941816 Active Maliheh Ziglari [employer] WORK[employer] Active ACCU-CHEK ROSA UZMA Use device to check blood sugars BLOOD GLUCOSE MONITORING SUPPL 15075879518 No Longer Active Maliheh Ziglari [employer] WORK[employer] Active ACCU-CHEK ROSA INVITR STRP use strips with device to check blood sugars 3 times daily GLUCOSE BLOOD 71345663490 No Longer Active Mallashondaeh Ziglari [employer] WORKER Active VERAPAMIL HCL ER 180 MG ORAL CR-TABS 1 pill by mouth twice daily, for migraine prevention VERAPAMIL HCL 34534695885 Active Mima Erazo APRN Active CYCLOBENZAPRINE HCL 10 MG TABS 1 tablet by mouth three times daily, scheduled CYCLOBENZAPRINE HCL 31350288133 No Longer Active Alina Castaneda MD PhD Active HUMALOG 100 UNIT/ML SOLN Take 20 units with breakfast, 10u with lunch and suppetr. INSULIN LISPRO (HUMAN) 01248262585 No Longer Active Alina Castaneda MD PhD Active TRUETEST TEST STRP check sugars 4x/day GLUCOSE BLOOD 63563041507 No Longer Active Alina Castaneda MD PhD Active MORPHINE SULFATE 30 MG TABS 1 pill by mouth twice daily, for pain MORPHINE SULFATE 41283394089 No Longer Active Mason Loredo MD Active ACYCLOVIR 400 MG ORAL TABS 1 pill three times daily x 5 days, for cold sore outbreak ACYCLOVIR 45101698591 No Longer Active lAina Castaneda MD PhD Active PENICILLIN V POTASSIUM 500 MG TABS 1 pill by mouth three times daily PENICILLIN V POTASSIUM 36913392445 No Longer Active Alina Castaneda MD PhD Active UROXATRAL 10 MG [id number] Take 1 tablet by mouth daily ALFUZOSIN HCL 63457912386 No Longer Active Alina Castaneda MD PhD Active THIOTHIXENE 5 MG CAPS by mouth twice a day THIOTHIXENE 11236482675 No Longer Active Alina Castaneda MD PhD Active ZYPREXA 7.5 MG TABS 1 at HS OLANZAPINE 09685479650 No Longer Active Alina Castaneda MD PhD Active BD INSULIN SYRINGE 28G X 1/2" 1 ML MISC 1 four times per day INSULIN SYRINGE-NEEDLE U-100 89491664855 Active Marvel Charles [facility] Active DETROL LA 4 MG [id number] Take 1 tablet by mouth daily TOLTERODINE TARTRATE 96588656180 No Longer Active Alina Castaneda MD PhD Active TERESE CONTOUR TEST STRP monitor blood sugars 3x/day GLUCOSE BLOOD 05816149087 No Longer Active Alina Castaneda MD PhD Active EQL TRUETEST TEST STRP Test blood sugar TID GLUCOSE BLOOD 11443826420 No Longer Active Alina Castaneda MD PhD Active FLUTICASONE PROPIONATE 50 MCG/ACT SUSP 2 sprays each nostril qDay x 30 days FLUTICASONE PROPIONATE 12704901259 No Longer Active Alina Castaneda MD PhD Active IBUPROFEN 200 MG TABS 1 Q 6 hr. PRN IBUPROFEN 46381435848 No Longer Active Alina Castaneda MD PhD Active NIACIN ER 500 MG CR-TABS 4 qHS (for triglycerides) NIACIN 72666318643 No Longer Active Alina Castaneda MD PhD Active ALFUZOSIN HCL ER 10 MG [id number] 1 tablet daily ALFUZOSIN HCL 61993614614 Active Mima Erazo [employer]LE[employer]ER [employer] PULP Active SAPHRIS 5 MG SUBL by mouth twice a day ASENAPINE MALEATE 24708092188 No Longer Active Marvel Charles [employer] WORKER Active ACETAMINOPHEN 500 MG TABS 2 Q 6 hr. PRN ACETAMINOPHEN 79162400629 No Longer Active Maliheh Ziglari [employer] WORKER Active ORPHENADRINE CITRATE ER 100 MG [id number] 1 every 12 hr. as needed ORPHENADRINE CITRATE 79094214720 No Longer Active Alina Castaneda MD PhD Active NIACIN CR 500 MG CR-TABS 2 qHS NIACIN 02490776595 No Longer Active Alina Castaneda MD PhD Active AMOXICILLIN 500 MG CAPS 2 po BID x 10 days AMOXICILLIN 69796209054 No Longer Active Alina Castaneda MD PhD Active HYDROCODONE-ACETAMINOPHEN 7.5-325 MG TABS 1 four times a day as needed for pain HYDROCODONE-ACETAMINOPHEN 89929170803 No Longer Active Alina Castaneda MD PhD Active DOXEPIN HCL 10 MG CAPS Take 1 tablet by mouth daily DOXEPIN HCL 44817690386 No Longer Active Salina Han [facility] Active NAVANE 10 MG CAPS 1/2 tablet twice a day THIOTHIXENE No Longer Active Salina Han [facility] Active CYCLOBENZAPRINE HCL 10 MG TABS 1/2 tablet by mouth every 8 hours as needed for muscle spasms CYCLOBENZAPRINE HCL 34212091557 No Longer Active Alina Castaneda MD PhD Active BACTROBAN 2 % CREAM apply to ear and nose twice daily MUPIROCIN CALCIUM 91024332795 No Longer Active Alina Castaneda MD PhD Active HYDROCODONE-ACETAMINOPHEN 5-325 MG TABS take one tablet by mouth every four hours as needed for pain HYDROCODONE-ACETAMINOPHEN 89636686285 No Longer Active Alina Castaneda MD PhD Active ZYPREXA 5 MG TABS take one tablet by mouth every evening OLANZAPINE 97488476703 No Longer Active Alina Castaneda MD PhD Active ALBUTEROL SULFATE 0.083 % NEBU SOLN one vial per nebulizer TID and PRN cough/ soa ALBUTEROL SULFATE 35950190172 No Longer Active Alina Catsaneda MD PhD Active GUAIFENESIN 600 MG [id number] 1 tablet by mouth twice daily if needed for cough GUAIFENESIN 99659890690 No Longer Active Marvel MARROQUIN Active AZITHROMYCIN 500 MG SOLR 1 po q day AZITHROMYCIN 77247692030 No Longer Active Alina Castaneda MD PhD Active PROMETHAZINE-CODEINE 6.25-10 MG/5ML SYRP 1 tsp po q 6 hours prn cough PROMETHAZINE-CODEINE 36320354654 No Longer Active Alina Castaneda MD PhD Active CEFDINIR 300 MG CAPS by mouth twice a day CEFDINIR 92105320102 No Longer Active Alina Castaneda MD PhD Active METFORMIN HCL 500 MG [id number] Take 3 tablets by mouth everyday METFORMIN HCL 01110883098 No Longer Active Alina Castaneda MD PhD Active LEVEMIR 100 UNIT/ML SOLN 90 units SQ qHS INSULIN DETEMIR 35544475937 No Longer Active Marvel MARROQUIN Active TOPROL XL 100 MG [id number]-DDM 1 @ HS METOPROLOL SUCCINATE 84417759575 No Longer Active Marvel MARROQUIN Active ALLOPURINOL 300 MG TABS Take one by mouth daily ALLOPURINOL 30960685524 Active Mima Yokum [employer] Active ZYPREXA 10 MG TABS Take one by mouth daily OLANZAPINE 86949384294 No Longer Active Alina Castaneda MD PhD Active NOVOLOG 100 UNIT/ML SOLN 40 units with every meal INSULIN ASPART 59548136126 No Longer Active Alina Castaneda MD PhD Active VERAPAMIL HCL CR 120 MG TAB CR 1 qPM VERAPAMIL HCL 61560317203 No Longer Active Salina Emely RMA Active ZYPREXA 15 MG TABS Take 1 tablet by mouth daily OLANZAPINE 32270279448 No Longer Active Marvel MENDOZAP Active ALBUTEROL SULFATE (2.5 MG/3ML) 0.083% NEBU 1 neb tid and prn cough ALBUTEROL SULFATE 12256379016 No Longer Active Alina Castaneda MD PhD Active LANTUS 100 UNIT/ML SOLN 60 units sq q hs INSULIN GLARGINE 25330094385 No Longer Active Alina Mendez RMA Active ALBUTEROL SULFATE (2.5 MG/3ML) 0.083% NEBU 1 neb tid and prn cough ALBUTEROL SULFATE (2.5 MG/3ML) 0.083% NEBU 219879 ALBUTEROL SULFATE Inactive ZYPREXA 15 MG TABS Take 1 tablet by mouth daily ZYPREXA 15 MG TABS 835753 OLANZAPINE Inactive VERAPAMIL HCL CR 120 MG TAB CR 1 qPM VERAPAMIL HCL CR 120 MG TAB CR VERAPAMIL HCL Inactive ZYPREXA 10 MG TABS Take one by mouth daily ZYPREXA 10 MG TABS 601959 OLANZAPINE Inactive TOPROL XL 100 MG [id number] 1 @ HS TOPROL XL 100 MG KR48B-IUD METOPROLOL SUCCINATE Inactive LEVEMIR 100 UNIT/ML SOLN 90 units SQ qHS LEVEMIR 100 UNIT/ML SOLN INSULIN DETEMIR Inactive PROMETHAZINE-CODEINE 6.25-10 MG/5ML SYRP 1 tsp po q 6 hours prn cough PROMETHAZINE-CODEINE 6.25-10 MG/5ML SYRP 951215 PROMETHAZINE- CODEINE Inactive GUAIFENESIN 600 MG SN04N-YRP 1 tablet by mouth twice daily if needed for cough GUAIFENESIN 600 MG RQ57O-YGY GUAIFENESIN Inactive ALBUTEROL SULFATE 0.083 % NEBU SOLN one vial per nebulizer TID and PRN cough/ soa ALBUTEROL SULFATE 0.083 % [facility] 407514 ALBUTEROL SULFATE Inactive ZYPREXA 5 MG TABS take one tablet by mouth every evening ZYPREXA 5 MG TABS 933381 OLANZAPINE Inactive HYDROCODONE-ACETAMINOPHEN 5-325 MG TABS take one tablet by mouth every four hours as needed for pain HYDROCODONE-ACETAMINOPHEN 5-325 MG TABS 434425 HYDROCODONE-ACETAMINOPHEN Inactive BACTROBAN 2 % CREAM apply to ear and nose twice daily BACTROBAN 2 % CREAM 392647 MUPIROCIN CALCIUM Inactive CYCLOBENZAPRINE HCL 10 MG TABS 1/2 tablet by mouth every 8 hours as needed for muscle spasms CYCLOBENZAPRINE HCL 10 MG TABS 021785 CYCLOBENZAPRINE HCL Inactive NAVANE 10 MG CAPS 1/2 tablet twice a day NAVANE 10 MG CAPS THIOTHIXENE Inactive DOXEPIN HCL 10 MG CAPS Take 1 tablet by mouth daily DOXEPIN HCL 10 MG CAPS 3464916 DOXEPIN HCL Inactive HYDROCODONE-ACETAMINOPHEN 7.5-325 MG TABS 1 four times a day as needed for pain HYDROCODONE-ACETAMINOPHEN 7.5-325 MG TABS 419592 HYDROCODONE-ACETAMINOPHEN Inactive NIACIN CR 500 MG CR-TABS 2 qHS NIACIN CR 500 MG CR- TABS NIACIN Inactive ORPHENADRINE CITRATE ER 100 MG [id number] 1 every 12 hr. as needed ORPHENADRINE CITRATE ER 100 MG WG92Q-YRG ORPHENADRINE CITRATE Inactive ACETAMINOPHEN 500 MG TABS 2 Q 6 hr. PRN ACETAMINOPHEN 500 MG TABS 780147 ACETAMINOPHEN Inactive SAPHRIS 5 MG SUBL by mouth twice a day SAPHRIS 5 MG SUBL ASENAPINE MALEATE Inactive NIACIN ER 500 MG CR-TABS 4 qHS (for triglycerides) NIACIN ER 500 MG CR-TABS NIACIN Inactive IBUPROFEN 200 MG TABS 1 Q 6 hr. PRN IBUPROFEN 200 MG TABS 528447 IBUPROFEN Inactive FLUTICASONE PROPIONATE 50 MCG/ACT SUSP 2 sprays each nostril qDay x 30 days FLUTICASONE PROPIONATE 50 MCG/ACT SUSP 4975192 FLUTICASONE PROPIONATE Inactive EQL TRUETEST TEST STRP Test blood sugar TID EQL TRUETEST TEST STRP GLUCOSE BLOOD Inactive TERESE CONTOUR TEST STRP monitor blood sugars 3x/day TERESE CONTOUR TEST STRP GLUCOSE BLOOD Inactive DETROL LA 4 MG [id number]-RWJ Take 1 tablet by mouth daily DETROL LA 4 MG AH65W-CGY TOLTERODINE TARTRATE Inactive ZYPREXA 7.5 MG TABS 1 at HS ZYPREXA 7.5 MG TABS 930339 OLANZAPINE Inactive THIOTHIXENE 5 MG CAPS by mouth twice a day THIOTHIXENE 5 MG CAPS 650540 THIOTHIXENE Inactive UROXATRAL 10 MG BF65Q-IVL Take 1 tablet by mouth daily UROXATRAL 10 MG [id number]-PEL ALFUZOSIN HCL Inactive ACYCLOVIR 400 MG ORAL TABS 1 pill three times daily x 5 days, for cold sore outbreak ACYCLOVIR 400 MG ORAL TABS 033731 ACYCLOVIR Inactive TRUETEST TEST STRP check sugars 4x/day TRUETEST TEST STRP GLUCOSE BLOOD Inactive HUMALOG 100 UNIT/ML SOLN Take 20 units with breakfast, 10u with lunch and suppetr. HUMALOG 100 UNIT/ML SOLN INSULIN LISPRO ( HUMAN) Inactive CYCLOBENZAPRINE HCL 10 MG TABS 1 tablet by mouth three times daily, scheduled CYCLOBENZAPRINE HCL 10 MG TABS 794289 CYCLOBENZAPRINE HCL Inactive ACCU-CHEK ROSA INVITR STRP use strips with device to check blood sugars 3 times daily ACCU-CHEK ROSA INVITR STRP GLUCOSE BLOOD Inactive ACCU-CHEK ROSA UZMA Use device to check blood sugars ACCU-CHEK ROSA UZMA BLOOD GLUCOSE MONITORING SUPPL Inactive FLUVOXAMINE MALEATE 100 MG ORAL TABS Take 1/2 tab at noon FLUVOXAMINE MALEATE 100 MG ORAL TABS 781149 FLUVOXAMINE MALEATE Inactive FLUVOXAMINE MALEATE 100 MG TABS Take one (1) tablet by mouth am, 1/2 at noon FLUVOXAMINE MALEATE 100 MG TABS 976524 FLUVOXAMINE MALEATE Inactive BACTROBAN 2 % CREAM Apply to affected area BID for up to 10 days BACTROBAN 2 % CREAM 162242 MUPIROCIN CALCIUM Inactive NOVOFINE 32G X 6 MM MISC use one four times per day NOVOFINE 32G X 6 MM MISC INSULIN PEN NEEDLE Inactive TRAZODONE HCL 100 MG ORAL TABS 1 tab by mouth for sleep TRAZODONE HCL 100 MG ORAL TABS 020038 TRAZODONE HCL Inactive LOVAZA 1 GM CAPS 4 daily (for triglycerides) LOVAZA 1 GM CAPS 001113 XIVAF-4-BJTT ETHYL ESTERS Inactive METFORMIN HCL ER 500 MG BK39L-BKW Take three tablets by mouth everyday METFORMIN HCL ER 500 MG YE23N-EAG METFORMIN HCL Inactive METOPROLOL SUCCINATE 100 MG IK71U-CNU 1 by mouth daily for blood pressure METOPROLOL SUCCINATE 100 MG VB93A-BEJ METOPROLOL SUCCINATE Inactive AMITIZA 24 MCG ORAL CAPS Take one capsule BID for constipation. AMITIZA 24 MCG ORAL CAPS LUBIPROSTONE Inactive TOLTERODINE TARTRATE 2 MG TABS 1 pill twice daily, for bladder TOLTERODINE TARTRATE 2 MG TABS 059173 TOLTERODINE TARTRATE Inactive COLACE 100 MG CAPS 1 pill by mouth twice daily, for constipation COLACE 100 MG CAPS 3640717 DOCUSATE SODIUM Inactive LOMOTIL 2.5-0.025 MG ORAL TABS take 1-2 tabs PO after each stool, no more than 8 in 24 hours LOMOTIL 2.5-0.025 MG ORAL TABS 1461355 DIPHENOXYLATE-ATROPINE Inactive ZOFRAN 4 MG TABS 1 po q4hr PRN Nausea ZOFRAN 4 MG TABS 969752 ONDANSETRON HCL Inactive HYDROCODONE-ACETAMINOPHEN 5-325 MG TABS 2 tabs by mouth three times daily for pain HYDROCODONE-ACETAMINOPHEN 5-325 MG TABS 127778 HYDROCODONE-ACETAMINOPHEN Inactive ZOLPIDEM TARTRATE 10 MG TABS take at bedtime ZOLPIDEM TARTRATE 10 MG TABS 150634 ZOLPIDEM TARTRATE Inactive LISINOPRIL 20 MG TABS 1 BID LISINOPRIL 20 MG TABS 157023 LISINOPRIL Inactive TRAVATAN Z 0.004 % SOLN 1 gtt each eye daily TRAVATAN Z 0.004 % SOLN TRAVOPROST Inactive LATUDA 60 MG ORAL TABS Take one by mouth daily LATUDA 60 MG ORAL TABS LURASIDONE HCL Inactive FLUVOXAMINE MALEATE 50 MG ORAL TABS 1 tab by mouth daily FLUVOXAMINE MALEATE 50 MG ORAL TABS 668521 FLUVOXAMINE MALEATE Inactive CEFDINIR 300 MG CAPS by mouth twice a day CEFDINIR 300 MG CAPS 650232 CEFDINIR Inactive AZITHROMYCIN 500 MG SOLR 1 po q day AZITHROMYCIN 500 MG SOLR 46282655979 AZITHROMYCIN Inactive AMOXICILLIN 500 MG CAPS 2 po BID x 10 days AMOXICILLIN 500 MG CAPS 889205 AMOXICILLIN Inactive PENICILLIN V POTASSIUM 500 MG TABS 1 pill by mouth three times daily PENICILLIN V POTASSIUM 500 MG TABS 377089 PENICILLIN V POTASSIUM Inactive KEFLEX 500 MG CAP 1 po BID x 7 days KEFLEX 500 MG CAP 886569 CEPHALEXIN Inactive Immunizations Vaccine Administration Date Value [...] Fluvirin, Fluarix, Agriflu(>=18 yo)) Fluzone (>3 yrs.) [[id number]] Influenza, seasonal, injectable pneumococcal immunization administered Pneumovax [...] E&M - 3141-9 209.5 [lb_av] Weight Measured Diagnostic Results Date Name Value Unit Range Description Lab Report: Basic Metabolic Panel, HGBA1C - Chemistry sodium, serum 140 mmol/L 252-933 1410/11/09 potassium, serum 4.0 mmol/L 3.5-5.2 chloride, serum [...] Acid - Chemistry cholesterol, serum 187 mg/dL 394-656 3195/06/14 triglyceride, serum, fasting 246 mg/dL 30-200 HDL [...] Lab microalbumin, urine 10 0-19 Office Visit: Weak stream - Chemistry RBC, [...] negative Encounters Code Encounter Date Provider Facility CPT-63878 Level 3 Est. Patient 09:12:14 NICKEL PLATER Mima Erazo [facility] CPT-84432 Level 3 Est. Patient 16:52:51 CDT Vanessa Hickey MD [facility]-61390 Level 3 Est. Patient 17:40:16 CDT Mima Erazo [facility]-92448 Level 3 Est. Patient 14:34:52 CDT Vanessa Hickey MD [facility]-03655 Level 3 Est. Patient 16:27:51 CDT Mima Erazo [facility]-80930 Level 3 Est. Patient 14:39:00 NICKEL PLATER Vanessa Hickey MD [facility]-74203 Level 2 Est. Patient 18:43:34 CDT Mima Erazo [facility] CPT-03929 Level 3 Est. Patient 16:22:09 CDT Cherelle Avila [facility] CPT-14822 Level 4 Est. Patient 17:55:14 CDT Mima Erazo [facility] CPT-75978 Level 2 Est. Patient 17:13:21 CDT Alina Castaneda MD [facility]-75000 Level 3 Est. Patient 14:46:15 CDT Vanessa Hickey MD [facility]-01444 Level 3 Est. Patient 09:34:56 CDT Alina Castaneda MD [facility]05786 Level 3 Est. Patient 21:40:19 CDT Mima Erazo [facility] CPT-89320 Level 3 Est. Patient 09:26:40 CDT Marvel Charles [facility]-84924 Level 3 Est. Patient 12:36:43 CDT Vanessa Hickey MD [facility]-94662 Level 3 Est. Patient 12:57:49 CDT Vanessa Hickey MD [facility]-06292 Level 3 Est. Patient 00:28:25 CDT Alina Castaneda MD [facility]-74652 Level 2 Est. Patient 12:52:14 CDT Alina Castaneda MD [facility]-99033 Level 3 Est. Patient 11:51:18 NICKEL PLATER Alina Castaneda MD [facility]-29586 Level 3 Est. Patient 10:09:22 NICKEL PLATER Alina Castaneda MD [facility]54001 Level 3 Est. Patient 14:36:26 [facility]94210 Level 3 Est. Patient 13:34:47 NICKEL PLATER Alina Castaneda MD [facility]71828 Level 3 Est. Patient 19:52:08 NICKEL PLATER Alina Castaneda MD [facility]38046 Level 3 Est. Patient 10:01:51 [facility]-68023 Level 3 Est. Patient 21:54:06 CDT Vanessa Hickey [facility]41252 Level 3 Est. Patient 08:54:46 CDT Alina Castaneda MD [facility]-14587 Level 3 Est. Patient 09:32:11 CDT Marvel [facility]-04408 Level 3 Est. Patient 12:02:49 CDT Alina Castaneda MD [facility]12435 Level 3 Est. Patient 19:17:33 CDT Alina Castaneda [facility]99603 Level 3 Est. Patient 13:19:10 CDT Marvel [facility] [facility]-47892 Level 3 Est. Patient 08:20:05 CDT Alina Castaneda MD [facility]-45996 Level 3 Est. Patient 15:17:18 CDT Alina Castaneda MD [facility]-87468 Level 3 Est. Patient 14:25:36 NICKEL PLATER [facility]-59779 Level 3 Est. Patient 10:09:15 NICKEL PLATER [facility]-62446 Level 3 Est. Patient 21:28:43 CDT Alina Castaneda MD [facility]-55325 Level 3 Est. [facility] 15:20:11 [facility] Patient 19:08:12 CDT Alina Castaneda MD [facility]-62552 Level 3 Est. Patient 15:06:39 [facility]T [facility] 4 Est. Patient 17:48:15 CDT Alina Castaneda MD [facility]-35150 Level 3 Est. Patient 14:53:49 CDT Alina Castaneda MD [facility]-50012 Level 3 Est. Patient 09:35:16 CDT Alina Castaneda MD [facility]-21734 Level 3 Est. Patient 12:23:22 CDT Alina Castaneda MD [facility]-54619 Level 3 Est. Patient 16:19:15 CDT Alina Castaneda MD [facility]-26588 Level 3 Est. Patient 21:39:56 NICKEL PLATER Alina Castaneda MD [facility]65757 Level 4 Est. Patient 14:12:56 NICKEL PLATER Alina Castaneda MD [facility]-85912 Level 2 Est. Patient 15:34:57 NICKEL PLATER Alina Castaneda MD [facility]-17378 Level 3 Est. Patient 12:17:04 NICKEL PLATER Alina Castaneda MD [facility]-82010 Level 3 Est. Patient 09:18:18 NICKEL PLATER [facility] CPT-86233 Level 2 Est. Patient 21:50:24 CDT Alina Castaneda MD [facility]-76313 Level 3 Est. Patient 09:17:28 CDT [facility]-96504 Level 4 Est. Patient 18:54:02 CDT Alina Castaneda MD [facility]-33210 Level 3 Est. Patient 10:47:10 CDT Alina Castaneda MD [facility]-00432 Level 3 Est. Patient 09:22:20 CDT [facility] CPT-72133 Level 3 Est. Patient 16:39:43 CDT [facility] CPT-62181 Level 3 Est. Patient 16:05:16 CDT Alina Castaneda MD [facility]-78250 Level 3 Est. Patient 00:29:15 CDT Alina Castaneda MD [facility]-06428 Level 3 Est. Patient 10:49:22 NICKEL PLATER [facility]-49736 Level 3 Est. Patient 21:30:19 NICKEL PLATER Alina Castaneda MD [facility]-50048 Level 4 Est. Patient 17:04:11 NICKEL PLATER [facility] [place]-10466 Level 3 Est. Patient 15:34:11 [facility] [facility] [place]-24115 Level 2 Est. Patient 12:51:58 NICKEL PLATER Alina Castaneda MD PhD [facility] CPT-15307 Level 3 Est. Patient 13:20:01 NICKEL PLATER Alina Castaneda MD PhD [facility] CPT-03912 Level 3 Est. Patient 09:23:35 CDT Alina Castaneda MD PhD [facility] Procedures Code Procedure Name Date Entry Date Standard Description CPT-30566 HGBA1C - LAB USE ONLY 09:30:27 NICKEL PLATER CPT-03085 BMP - LAB USE ONLY 09:30:27 NICKEL PLATER CPT-77850 Venipuncture Draw Fee 09:30:26 NICKEL PLATER CPT-TCMM Transitional Care Mgmt-Moderate 10:25:31 CDT CPT-83204 Bladder Scan 14:34:53 CDT CPT-01543 Bladder Scan 14:39:01 NICKEL PLATER CPT-TCMM Transitional Care Mgmt-Moderate 10:30:19 NICKEL PLATER CPT-70530 Bladder Scan 12:36:44 CDT CPT-19801 Bladder Scan 21:54:06 CDT CPT-G0008 Administration of Influenza Virus Vaccine 13:05:26 CDT CPT-59991 Fluzone Quadrivalent Intramuscular Suspension 0.5 ML 13: 05:26 CDT CPT-39213 Administration single or combination vaccine inc oral 11 :49:51 CDT CPT-59807 Pneumovax 11:49:51 CDT CPT-03776 Ribs unilateral 2V 12:37:22 NICKEL PLATER CPT-87220 Chest 2V Frontal and Lat 17:15:26 CDT CPT-76498 Abx/Therapy Injection 18:54:02 CDT CPT-J0696 Rocephin 1000 mg (Ceftriaxone) 16:00:32 CDT CPT-97644 Chest 2V Frontal and Lat 15:26:45 CDT CPT-23547 Chest 2V Frontal and Lat 10:23:27 CDT CPT-88551 Venipuncture Draw Fee 10:11:00 CDT CPT-71126 Administration single or combination vaccine inc oral 11 :56:38 CDT CPT-14030 Influenza split virus > age 3 11:56:38 CDT CPT-33592 Venipuncture Draw Fee 08:49:54 NICKEL PLATER CPT-58303 EKG Trac and Interp 17:54:19 NICKEL PLATER
--- OUTSIDE RECORDS SUMMARY | 2018-07-02 13:45 | XMS REPORT | Clinical Summary ---
Author Author Admin, TERELL Organization [facility] Address Unknown Phone Unavailable Allergies, Adverse [...] state, unspecified DIABETES, TYPE 2 250.00 Inactive Alnia Castaneda MD PhD Diabetes mellitus without mention [...] chest pain Chest pain, atypical 786.59 Resolved lAina Castaneda MD PhD Other chest pain Urinary Retention 788.20 Active Vanessa Hickey MD Retention of urine, unspecified Benign paroxysmal positional vertigo 386.11 Active Mima Erazo [employer] Benign paroxysmal positional vertigo Vertigo, benign paroxysmal position 386.11 Inactive Mima Erazo [employer] Benign paroxysmal positional vertigo High-risk sexual behavior V69.2 Active Alina Castaneda MD PhD High-risk sexual behavior Erectile dysfunction 302.72 Active Alina Castaneda MD PhD Psychosexual dysfunction with inhibited sexual excitement Constipation 564.00 Active Alina Castaneda MD PhD Constipation, unspecified Skin lesion 709.9 Active Alina Castaneda MD PhD Unspecified disorder of skin and subcutaneous tissue Malaise and fatigue 780.79 Active Cherelle Speaks [employer] Other malaise and fatigue Diarrhea 787.91 Active Cherelle Speaks [employer] Diarrhea PHARYNGITIS 462 Active Cherelle Speaks [employer] Acute pharyngitis Colitis 558.9 Active Mima Erazo [employer] Other and unspecified noninfectious gastroenteritis and colitis WOUND, OPEN, NOSE ICD-873.20 Inactive Alina Castaneda MD PhD DIABETES, TYPE 2 ICD-250.00 Inactive Alina Castaneda MD PhD HYPERTENSION ICD-401.9 Inactive Alina Castaneda MD PhD URI ICD-465.9 Inactive Alina Castaneda MD PhD CHEST PAIN ICD-786.50 Inactive Alina Castaneda MD PhD FH STROKE ICD-V17.1 Inactive Marvel Charles [employer]PER[employer] FATIGUE ICD-780.79 Inactive Alina Castaneda MD PhD [...] Take one capsule BID for constipation LUBIPROSTONE 10711127825 Active Mima Erazo [employer] Active LEVEMIR FLEXTOUCH 100 UNIT/ML SC SOPN 75 units SQ each evening, for diabetes INSULIN DETEMIR 59349821977 Active Salina ROBBINSA Active TRUEPLUS LANCETS 30G MISC 3 a day LANCETS 40084329905 Active Marvel Charles [employer] Active TOLTERODINE TARTRATE 2 MG TABS 1 pill twice daily, for bladder TOLTERODINE TARTRATE 99008041151 No Longer Active Vanessa Hickey MD Active AMITIZA 24 MCG ORAL CAPS Take one capsule BID for constipation. LUBIPROSTONE 63389181870 No Longer Active Vanessa Hickey MD Active LOMOTIL 2.5-0.025 MG ORAL TABS take 1-2 tabs PO after each stool, no more than 8 in 24 hours DIPHENOXYLATE-ATROPINE 07491961781 Active Grace ROJAS Active FLUVOXAMINE MALEATE 100 MG ORAL TABS take one tab every AM et HS, and take 1/ 2 tab at noon FLUVOXAMINE MALEATE 65776745828 Active Grace Nascimento RMA Active METOPROLOL SUCCINATE 100 MG [id number] 1 by mouth daily for blood pressure METOPROLOL SUCCINATE 77142108452 No Longer Active Grace Nascimento RMA Active METFORMIN HCL ER 500 MG [id number]-[id number] Take three tablets by mouth everyday METFORMIN HCL 76330055861 No Longer Active Grace Azam RMA Active LOVAZA 1 GM CAPS 4 daily (for triglycerides) OMEGA-3- ACID ETHYL ESTERS 34953537292 No Longer Active Grace Azam RMA Active TRAZODONE HCL 100 MG ORAL TABS 1 tab by mouth for sleep TRAZODONE HCL 71185556347 No Longer Active Gracekailee Nelsonb RMA Active NOVOFINE 32G X 6 MM MISC use one four times per day INSULIN PEN NEEDLE 30257523418 No Longer Active Grace Nascimento RMA Active BACTROBAN 2 % CREAM Apply to affected area BID for up to 10 days MUPIROCIN CALCIUM 02113110323 No Longer Active Grace Nascimento RMA Active ZOFRAN 4 MG TABS 1 po q4hr PRN Nausea ONDANSETRON HCL 54829852139 Active Salina Han RMA Active KEFLEX 500 MG CAP 1 po BID x 7 days CEPHALEXIN 59233657282 No Longer Active Cherelle Avila [employer] Active FLUVOXAMINE MALEATE 100 MG TABS Take one (1) tablet by mouth am, 1/2 at noon FLUVOXAMINE MALEATE 55193903639 No Longer Active Mima Aguilarliudmila [employer] Active CORICIDIN HBP CONGESTION/COUGH 10-200 MG ORAL CAPS Take as directed on box as needed for cold/flu symptoms DEXTROMETHORPHAN-GUAIFENESIN 62380530403 Active Cherelle Speaks [employer] Active OMEGA-3 300 MG ORAL CAPS 4 caps by mouth daily OMEGA-3 FATTY ACIDS 33038697791 Active Cherelle Speaks [employer] Active FLUVOXAMINE MALEATE 100 MG ORAL TABS Take 1/2 tab at noon FLUVOXAMINE MALEATE 76322748494 No Longer Active Cherelle Avila ALBAN Active [facility] LUBRICANT EYE DROPS 0.4-0.3 % OPHTH SOLN POLYETHYL GLYCOL-PROPYL GLYCOL 29085112191 Active Mima Yoliudmila [employer] Active CLONAZEPAM 1 MG TABS 1/2 pill by mouth three times daily CLONAZEPAM 85059261295 Active Alina Castaneda MD PhD Active MIRALAX POWD 17g by mouth daily, for constipation POLYETHYLENE GLYCOL 3350 86239306856 Active Alina Castaneda MD PhD Active HYDROCODONE-ACETAMINOPHEN 5-325 MG TABS 2 tabs by mouth three times daily for pain HYDROCODONE-ACETAMINOPHEN 77769176530 Active Mima Aguilarliudmila REYESN Active HUMALOG KWIKPEN 100 UNIT/ML SC SOPN 20 units with breakfast, 10 units with lunch, 10 units with dinner, for diabetes INSULIN LISPRO (HUMAN ) 15579700638 Active Alina Castaneda MD PhD Active LATUDA 120 MG ORAL TABS 1 pill by mouth nightly LURASIDONE HCL 49783092365 Active Alina Castaneda MD PhD Active COLACE 100 MG CAPS 1 pill by mouth twice daily, for constipation DOCUSATE SODIUM 28740360328 Active Alina Castaneda MD PhD Active TRUETEST TEST STRP check blood sugars 3x/day GLUCOSE BLOOD 05801166999 Active Marvel Mackenzieglari [employer]PER[employer] Active ACCU-CHEK ROSA UZMA Use device to check blood sugars BLOOD GLUCOSE MONITORING SUPPL 95415681284 No Longer Active Maliheh Ziglari [employer]PER[employer] Active ACCU-CHEK ROSA INVITR STRP use strips with device to check blood sugars 3 times daily GLUCOSE BLOOD 00846106616 No Longer Active Maliheh 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 [employer] Active VERAPAMIL HCL ER 180 MG ORAL CR-TABS 1 pill by mouth twice daily, for migraine prevention VERAPAMIL HCL 79035723526 Active Alina Castaneda MD PhD Active CYCLOBENZAPRINE HCL 10 MG TABS 1 tablet by mouth three times daily, scheduled CYCLOBENZAPRINE HCL 41817064677 No Longer Active Alina Castaneda MD PhD Active HUMALOG 100 UNIT/ML SOLN Take 20 units with breakfast, 10u with lunch and suppetr. INSULIN LISPRO (HUMAN) 68602478238 No Longer Active Alina Castaneda MD PhD Active TRUETEST TEST STRP check sugars 4x/day GLUCOSE BLOOD 57319178858 No Longer Active Alina Castaneda MD PhD Active MORPHINE SULFATE 30 MG TABS 1 pill by mouth twice daily, for pain MORPHINE SULFATE 18794591305 Active Mima Erazo [employer] Active ACYCLOVIR 400 MG ORAL TABS 1 pill three times daily x 5 days, for cold sore outbreak ACYCLOVIR 72572859637 No Longer Active Alina Castaneda MD PhD Active PENICILLIN V POTASSIUM 500 MG TABS 1 pill by mouth three times daily PENICILLIN V POTASSIUM 70676879596 No Longer Active Alina Castaneda MD PhD Active UROXATRAL 10 MG [id number] Take 1 tablet by mouth daily ALFUZOSIN HCL 22900950662 No Longer Active Alina Castaneda MD PhD Active THIOTHIXENE 5 MG CAPS by mouth twice a day THIOTHIXENE 45669467985 No Longer Active Alina Castaneda MD PhD Active ZYPREXA 7.5 MG TABS 1 at HS OLANZAPINE 00434813379 No Longer Active Alina Castaneda MD PhD Active BD INSULIN SYRINGE 28G X 1/2" 1 ML MISC 1 four times per day INSULIN SYRINGE-NEEDLE U-100 89133594283 Active Marvel Mackenzieglestela [employer] Active DETROL LA 4 MG [id number] Take 1 tablet by mouth daily TOLTERODINE TARTRATE 17999978820 No Longer Active Alina Castaneda MD PhD Active TERESE CONTOUR TEST STRP monitor blood sugars 3x/day GLUCOSE BLOOD 93049997979 No Longer Active Alina Castaneda MD PhD Active EQL TRUETEST TEST STRP Test blood sugar TID GLUCOSE BLOOD 51207349616 No Longer Active Alina Castaneda MD PhD Active FLUTICASONE PROPIONATE 50 MCG/ACT SUSP 2 sprays each nostril qDay x 30 days FLUTICASONE PROPIONATE 15394339853 No Longer Active Alina Castaneda MD PhD Active IBUPROFEN 200 MG TABS 1 Q 6 hr. PRN IBUPROFEN 36431386720 No Longer Active Alina Castaneda MD PhD Active NIACIN ER 500 MG CR-TABS 4 qHS (for triglycerides) NIACIN 70043658997 No Longer Active Alina Castaneda MD PhD Active ALFUZOSIN HCL ER 10 MG [id number] 1 tablet daily ALFUZOSIN HCL 49814625315 Active Vanessa Hickey MD Active SAPHRIS 5 MG SUBL by mouth twice a day ASENAPINE MALEATE 22326496942 No Longer Active Maliheh Ziglari [employer] Active ACETAMINOPHEN 500 MG TABS 2 Q 6 hr. PRN ACETAMINOPHEN 03895413982 No Longer Active Maliheh Ziglari [employer] Active ORPHENADRINE CITRATE ER 100 MG [id number]-RCA 1 every 12 hr. as needed ORPHENADRINE CITRATE 46796193298 No Longer Active Alina Castaneda MD PhD Active NIACIN CR 500 MG CR-TABS 2 qHS NIACIN 54969271686 No Longer Active Alina Castaneda MD PhD Active AMOXICILLIN 500 MG CAPS 2 po BID x 10 days AMOXICILLIN 18045919393 No Longer Active Alina Castaneda MD PhD Active HYDROCODONE-ACETAMINOPHEN 7.5-325 MG TABS 1 four times a day as needed for pain HYDROCODONE-ACETAMINOPHEN 09421678475 No Longer Active Alina Castaneda MD PhD Active DOXEPIN HCL 10 MG CAPS Take 1 tablet by mouth daily DOXEPIN HCL 83235739758 No Longer Active Salina [facility] Active NAVANE 10 MG CAPS 1/2 tablet twice a day THIOTHIXENE No Longer Active Salina Han [facility] Active CYCLOBENZAPRINE HCL 10 MG TABS 1/2 tablet by mouth every 8 hours as needed for muscle spasms CYCLOBENZAPRINE HCL 03794492020 No Longer Active Alina Castaneda MD PhD Active BACTROBAN 2 % CREAM apply to ear and nose twice daily MUPIROCIN CALCIUM 45212416419 No Longer Active Alina Castaneda MD PhD Active HYDROCODONE-ACETAMINOPHEN 5-325 MG TABS take one tablet by mouth every four hours as needed for pain HYDROCODONE-ACETAMINOPHEN 59354529258 No Longer Active Alina Castaneda MD PhD Active ZOLPIDEM TARTRATE 10 MG TABS take at bedtime ZOLPIDEM TARTRATE 66996525388 Active Alina Castaneda MD PhD Active ZYPREXA 5 MG TABS take one tablet by mouth every evening OLANZAPINE 27182344734 No Longer Active Alina Castaneda MD PhD Active ALBUTEROL SULFATE 0.083 % NEBU SOLN one vial per nebulizer TID and PRN cough/ soa ALBUTEROL SULFATE 04589225289 No Longer Active Alina Castaneda MD PhD Active GUAIFENESIN 600 MG [id number] 1 tablet by mouth twice daily if needed for cough GUAIFENESIN 91104837317 No Longer Active Marvel MENDOZAP Active AZITHROMYCIN 500 MG SOLR 1 po q day AZITHROMYCIN 92209078719 No Longer Active Alina Castaneda MD PhD Active PROMETHAZINE-CODEINE 6.25-10 MG/5ML SYRP 1 tsp po q 6 hours prn cough PROMETHAZINE-CODEINE 97712489648 No Longer Active Alina Castaneda MD PhD Active CEFDINIR 300 MG CAPS by mouth twice a day CEFDINIR 60002214313 No Longer Active Alina Castaneda MD PhD Active METFORMIN HCL 500 MG [id number] Take 3 tablets by mouth everyday METFORMIN HCL 37258512548 No Longer Active Alina Castanead MD PhD Active LEVEMIR 100 UNIT/ML SOLN 90 units SQ qHS INSULIN DETEMIR 06906442635 No Longer Active Marvel MARROQUIN Active TOPROL XL 100 MG [id number] 1 @ HS METOPROLOL SUCCINATE 07110518499 No Longer Active Marvel MARROQUIN Active ALLOPURINOL 300 MG TABS Take one by mouth daily ALLOPURINOL 83302361206 Active Alina Castaneda MD PhD Active ZYPREXA 10 MG TABS Take one by mouth daily OLANZAPINE 41770310186 No Longer Active Alina Castaneda MD PhD Active NOVOLOG 100 UNIT/ML SOLN 40 units with every meal INSULIN ASPART 56908100428 No Longer Active Alina Castaneda MD PhD Active VERAPAMIL HCL CR 120 MG TAB CR 1 qPM VERAPAMIL HCL 77270393381 No Longer Active Salina ROJAS Active ZYPREXA 15 MG TABS Take 1 tablet by mouth daily OLANZAPINE 52664673381 No Longer Active Marvel MARROQUIN Active LISINOPRIL 20 MG TABS 1 BID LISINOPRIL 80405192035 Active Alina Castaneda MD PhD Active ALBUTEROL SULFATE (2.5 MG/3ML) 0.083% NEBU 1 neb tid and prn cough ALBUTEROL SULFATE 88294891995 No Longer Active Alina Castaneda MD PhD Active TRAVATAN Z 0.004 % SOLN 1 gtt each eye daily TRAVOPROST 43190441281 Active CRYSTAL Suarez Active LANTUS 100 UNIT/ML SOLN 60 units sq q hs INSULIN GLARGINE 65178628080 No Longer Active CRYSTAL Suarez Active ALBUTEROL SULFATE (2.5 MG/3ML) 0.083% NEBU 1 neb tid and prn cough ALBUTEROL SULFATE (2.5 MG/3ML) 0.083% NEBU 726442 ALBUTEROL SULFATE Inactive ZYPREXA 15 MG TABS Take 1 tablet by mouth daily ZYPREXA 15 MG TABS 200173 OLANZAPINE Inactive VERAPAMIL HCL CR 120 MG TAB CR 1 qPM VERAPAMIL HCL CR 120 MG TAB CR VERAPAMIL HCL Inactive ZYPREXA 10 MG TABS Take one by mouth daily ZYPREXA 10 MG TABS 756519 OLANZAPINE Inactive TOPROL XL 100 MG [id number] 1 @ HS TOPROL XL 100 MG [id number]-WAJ METOPROLOL SUCCINATE Inactive LEVEMIR 100 UNIT/ML SOLN 90 units SQ qHS LEVEMIR 100 UNIT/ML SOLN INSULIN DETEMIR Inactive PROMETHAZINE-CODEINE 6.25-10 MG/5ML SYRP 1 tsp po q 6 hours prn cough PROMETHAZINE-CODEINE 6.25-10 MG/5ML SYRP 833962 PROMETHAZINE- CODEINE Inactive GUAIFENESIN 600 MG [id number] 1 tablet by mouth twice daily if needed for cough GUAIFENESIN 600 MG [id number] GUAIFENESIN Inactive ALBUTEROL SULFATE 0.083 % NEBU SOLN one vial per nebulizer TID and PRN cough/ soa ALBUTEROL SULFATE 0.083 % NEBU SOLN 213025 ALBUTEROL SULFATE Inactive ZYPREXA 5 MG TABS take one tablet by mouth every evening ZYPREXA 5 MG TABS 405328 OLANZAPINE Inactive HYDROCODONE-ACETAMINOPHEN 5-325 MG TABS take one tablet by mouth every four hours as needed for pain HYDROCODONE-ACETAMINOPHEN 5-325 MG TABS 614053 HYDROCODONE-ACETAMINOPHEN Inactive BACTROBAN 2 % CREAM apply to ear and nose twice daily BACTROBAN 2 % CREAM 212215 MUPIROCIN CALCIUM Inactive CYCLOBENZAPRINE HCL 10 MG TABS 1/2 tablet by mouth every 8 hours as needed for muscle spasms CYCLOBENZAPRINE HCL 10 MG TABS 192206 CYCLOBENZAPRINE HCL Inactive NAVANE 10 MG CAPS 1/2 tablet twice a day NAVANE 10 MG CAPS THIOTHIXENE Inactive DOXEPIN HCL 10 MG CAPS Take 1 tablet by mouth daily DOXEPIN HCL 10 MG CAPS 4105651 DOXEPIN HCL Inactive HYDROCODONE-ACETAMINOPHEN 7.5-325 MG TABS 1 four times a day as needed for pain HYDROCODONE-ACETAMINOPHEN 7.5-325 MG TABS 653760 HYDROCODONE-ACETAMINOPHEN Inactive NIACIN CR 500 MG CR-TABS 2 qHS NIACIN CR 500 MG CR- TABS NIACIN Inactive ORPHENADRINE CITRATE ER 100 MG [id number] 1 every 12 hr. as needed ORPHENADRINE CITRATE ER 100 MG [id number] ORPHENADRINE CITRATE Inactive ACETAMINOPHEN 500 MG TABS 2 Q 6 hr. PRN ACETAMINOPHEN 500 MG TABS 393970 ACETAMINOPHEN Inactive SAPHRIS 5 MG SUBL by mouth twice a day SAPHRIS 5 MG SUBL ASENAPINE MALEATE Inactive NIACIN ER 500 MG CR-TABS 4 qHS (for triglycerides) NIACIN ER 500 MG CR-TABS NIACIN Inactive IBUPROFEN 200 MG TABS 1 Q 6 hr. PRN IBUPROFEN 200 MG TABS 257121 IBUPROFEN Inactive FLUTICASONE PROPIONATE 50 MCG/ACT SUSP 2 sprays each nostril qDay x 30 days FLUTICASONE PROPIONATE 50 MCG/ACT SUSP 168233 FLUTICASONE PROPIONATE Inactive EQL TRUETEST TEST STRP Test blood sugar TID EQL TRUETEST TEST STRP GLUCOSE BLOOD Inactive TERESE CONTOUR TEST STRP monitor blood sugars 3x/day TERESE CONTOUR TEST STRP GLUCOSE BLOOD Inactive DETROL LA 4 MG [id number] Take 1 tablet by mouth daily DETROL LA 4 MG [id number]-ZLI TOLTERODINE TARTRATE Inactive ZYPREXA 7.5 MG TABS 1 at HS ZYPREXA 7.5 MG TABS 985914 OLANZAPINE Inactive THIOTHIXENE 5 MG CAPS by mouth twice a day THIOTHIXENE 5 MG CAPS 294535 THIOTHIXENE Inactive UROXATRAL 10 MG [id number]-ZPS Take 1 tablet by mouth daily UROXATRAL 10 MG [id number]-DYL ALFUZOSIN HCL Inactive ACYCLOVIR 400 MG ORAL TABS 1 pill three times daily x 5 days, for cold sore outbreak ACYCLOVIR 400 MG ORAL TABS 730596 ACYCLOVIR Inactive TRUETEST TEST STRP check sugars 4x/day TRUETEST TEST STRP GLUCOSE BLOOD Inactive HUMALOG 100 UNIT/ML SOLN Take 20 units with breakfast, 10u with lunch and suppetr. HUMALOG 100 UNIT/ML SOLN INSULIN LISPRO ( HUMAN) Inactive CYCLOBENZAPRINE HCL 10 MG TABS 1 tablet by mouth three times daily, scheduled CYCLOBENZAPRINE HCL 10 MG TABS 513757 CYCLOBENZAPRINE HCL Inactive ACCU-CHEK ROSA INVITR STRP use strips with device to check blood sugars 3 times daily ACCU-CHEK ROSA INVITR STRP GLUCOSE BLOOD Inactive ACCU-CHEK ROSA UZMA Use device to check blood sugars ACCU-CHEK ROSA UZMA BLOOD GLUCOSE MONITORING SUPPL Inactive FLUVOXAMINE MALEATE 100 MG ORAL TABS Take 1/2 tab at noon FLUVOXAMINE MALEATE 100 MG ORAL TABS 843875 FLUVOXAMINE MALEATE Inactive FLUVOXAMINE MALEATE 100 MG TABS Take one (1) tablet by mouth am, 1/2 at noon FLUVOXAMINE MALEATE 100 MG TABS 941838 FLUVOXAMINE MALEATE Inactive BACTROBAN 2 % CREAM Apply to affected area BID for up to 10 days BACTROBAN 2 % CREAM 268007 MUPIROCIN CALCIUM Inactive NOVOFINE 32G X 6 MM MISC use one four times per day NOVOFINE 32G X 6 MM MISC INSULIN PEN NEEDLE Inactive TRAZODONE HCL 100 MG ORAL TABS 1 tab by mouth for sleep TRAZODONE HCL 100 MG ORAL TABS 418513 TRAZODONE HCL Inactive LOVAZA 1 GM CAPS 4 daily (for triglycerides) LOVAZA 1 GM CAPS 279651 TACMS-0-YGHW ETHYL ESTERS Inactive METFORMIN HCL ER 500 MG [id number] Take three tablets by mouth everyday METFORMIN HCL ER 500 MG FM37X-UBB METFORMIN HCL Inactive METOPROLOL SUCCINATE 100 MG HH48X-IOA 1 by mouth daily for blood pressure METOPROLOL SUCCINATE 100 MG OL58K-XFD METOPROLOL SUCCINATE Inactive AMITIZA 24 MCG ORAL CAPS Take one capsule BID for constipation. AMITIZA 24 MCG ORAL CAPS LUBIPROSTONE Inactive TOLTERODINE TARTRATE 2 MG TABS 1 pill twice daily, for bladder TOLTERODINE TARTRATE 2 MG TABS 528842 TOLTERODINE TARTRATE Inactive CEFDINIR 300 MG CAPS by mouth twice a day CEFDINIR 300 MG CAPS 788060 CEFDINIR Inactive AZITHROMYCIN 500 MG SOLR 1 po q day AZITHROMYCIN 500 MG SOLR 71404742803 AZITHROMYCIN Inactive AMOXICILLIN 500 MG CAPS 2 po BID x 10 days AMOXICILLIN 500 MG CAPS 073778 AMOXICILLIN Inactive PENICILLIN V POTASSIUM 500 MG TABS 1 pill by mouth three times daily PENICILLIN V POTASSIUM 500 MG TABS 113616 PENICILLIN V POTASSIUM Inactive KEFLEX 500 MG CAP 1 po BID x 7 days KEFLEX 500 MG CAP 368392 CEPHALEXIN Inactive Immunizations Vaccine Administration Date Value [...] Fluvirin, Fluarix, Agriflu(>=18 yo)) Fluzone (>3 yrs.) [[id number]] Influenza, seasonal, injectable pneumococcal immunization administered Pneumovax [...] MICROALBUMIN - Chemistry sodium, serum 137 mmol/L 771-255 9760/05/19 potassium, serum 5.2 mmol/L 3.5-5.2 chloride, serum [...] Panel - Chemistry sodium, serum 137 mmol/L 190-241 8155/10/12 potassium, serum 4.8 mmol/L 3.5-5.2 chloride, serum 102 mmol/L 98-107 carbon dioxide, venous blood 27.6 mmol/L 21.0-32.0 blood glucose 168 mg/dL 65-110 calcium, serum 9.0 mg/dL 8.5-10.1 urea nitrogen, blood 15 mg/dL 7-18 creatinine, serum 1.04 mg/dL 0.55-1.30 sodium, serum 138 mmol/L 857-729 7426/11/11 potassium, serum 4.7 mmol/L 3.5-5.2 chloride, serum 103 mmol/L 98-107 carbon dioxide, venous blood 23.3 mmol/L 21.0-32.0 blood glucose 170 mg/dL 65-110 calcium, serum 8.6 mg/dL 8.5-10.1 urea nitrogen, blood 17 mg/dL 7-18 creatinine, serum 1.51 mg/dL 0.55-1.30 Lab Report: CBC W/DIFF, Basic Metabolic Panel - Hematology neutrophils as percent of blood leukocytes 59.5 % 42.2-75.2 monocytes as percent of blood leukocytes 8.3 % 1.7-9.3 lymphocytes as percent of blood leukocytes 26.9 % 20.5-51.1 erythrocyte (RBC) count 4.54 10^6/MM^3 10*6/mm3 4.69-6.13 hemoglobin, blood 13.7 g/dL 13.5-17.5 leukocyte count, blood 9.6 10^3/MM^3 10*3/mm3 4.6-10.2 hematocrit, blood 39.5 % 41.0-53.0 mean corpuscular volume, RBC 91 fL 80-97 mean corpuscular hemoglobin, RBC 31.2 pg 27.0-31.2 mean corpuscular hemoglobin concentration, RBC 34.1 G/DL % 31.8- 35.4 red blood cell distribution width 15.3 % 11.6-14.8 platelet count 252 10^3/MM^3 10*3/mm3 287-001 0597/11/11 neutrophils as percent of blood leukocytes 75.0 % 42.2-75.2 monocytes as percent of blood leukocytes 6.5 % 1.7-9.3 lymphocytes as percent of blood leukocytes 12.7 % 20.5-51.1 erythrocyte (RBC) count 4.33 10^6/MM^3 10*6/mm3 4.69-6.13 hemoglobin, blood 13.5 g/dL 13.5-17.5 leukocyte count, blood 5.8 10^3/MM^3 10*3/mm3 4.6-10.2 hematocrit, blood 40.2 % 41.0-53.0 mean corpuscular volume, RBC 89 fL 80-97 mean corpuscular hemoglobin, RBC 30.1 pg 27.0-31.2 mean corpuscular hemoglobin concentration, RBC 34.0 G/DL % 31.8- 35.4 red blood cell distribution width 15.6 % 11.6-14.8 platelet count 240 10^3/MM^3 10*3/mm3 142-424 Lab Report: Chlamydia/GC APTIMA/[id number], HIV-1/2 Agn/Dominga/99209, RPR (DX) W ... - Chemistry hepatitis B surface antigen NON-REACTIVE NON-REACTIVE Lab Report: Chlamydia/GC APTIMA/91588, HIV-1/2 Agn/Dominga/70125, RPR (DX) W ... - Lab chlamydia DNA probe NOT DETECTED NOT DETECTED Lab Report: Chlamydia/GC APTIMA/[id number], HIV-1/2 Agn/Dominga/70216, RPR (DX) W ... - Microbiology Neisseria gonorrhoeae DNA probe NOT DETECTED NOT DETECTED Lab Report: Chlamydia/GC APTIMA/[id number], HIV-1/2 Agn/Dominga/85149, RPR (DX) W ... - Serology rapid plasma reagin antibody titer NON-REACTIVE NON-REACTIVE Lab Report: HGBA1C - Chemistry hemoglobin A1C, blood, as % of total hemoglobin 6.1 % 4.3-6.0 hemoglobin A1C, blood, as % of total hemoglobin 6.3 % 4.3-6.0 Lab Report: Lipid Panel, HEPATIC PANEL, MICROALBUMIN, CBC - Chemistry aspartate aminotransferase (SGOT), serum 52 U/L 15-37 LDL cholesterol, serum 31 mg/dL 0-130 HDL cholesterol, serum 23 mg/dL 32-96 triglyceride, serum, fasting 383 mg/dL 30-200 cholesterol, serum 131 mg/dL 483-007 3318/06/03 alanine aminotransferase (SGPT), serum 112 U/L 12-78 [...] Specific Ag, MICROALBUMIN, Uric Acid - Chemistry HDL cholesterol, serum 22 mg/dL 32-96 LDL cholesterol, serum 66 mg/dL 0-130 prostate specific antigen 0.37 ng/mL 0.00-4.00 albumin/creatinine ratio, urine < 30 mg/g mg/g{creat} 0-29 uric acid, serum 4.7 mg/dL 2.6-7.2 cholesterol, serum 142 mg/dL 802-133 1033/06/26 triglyceride, serum, fasting 272 mg/dL 30-200 Lab Report: Lipid Panel, Prostatic Specific Ag, [...] retention - Urinalysis urinalysis, routine Clean Catch urine color yellow appearance, urine clear leukocyte esterase, urine, by dipstick negative ketones, urine, by test strip negative bilirubin, urine negative glucose, urine, semiquantitative negative pH, urine, semiquantitative 6.0 specific gravity, urine 1.015 nitrite, urine, semiquantitative negative urobilinogen, urine, semiquantitative [...] negative Encounters Code Encounter Date Provider Facility CPT-19819 Level 3 Est. 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 Patient 18:43:34 CDT Mima Erazo [facility] CPT-95094 Level 3 Est. Patient 16:22:09 CDT Cherelle Avila [facility] CPT-77002 Level 4 Est. Patient 17:55:14 CDT Mima Erazo [facility] CPT-82405 Level 2 Est. Patient 17:13:21 CDT Alina Castaneda MD PhD [facility] CPT-50205 Level 3 Est. Patient 14:46:15 CDT Vanessa Hickey MD [facility]-51071 Level 3 Est. Patient 09:34:56 CDT Alina Castaneda MD PhD [facility]-29066 Level 3 Est. Patient 21:40:19 CDT Mima Erazo [facility] CPT-72029 Level 3 Est. Patient 09:26:40 CDT Marvel [facility]-52075 Level 3 Est. Patient 12:36:43 CDT Vanessa Hickey MD [facility]-37550 Level 3 Est. Patient 12:57:49 CDT Vanessa Hickey MD [facility]-10104 Level 3 Est. Patient 00:28:25 CDT Alina Castaneda MD [facility]07258 Level 2 Est. Patient 12:52:14 CDT Alina Castaneda MD [facility]93239 Level 3 Est. Patient 11:51:18 BALANCE STAFF INSPECTOR Alina Castaneda MD [facility]-12309 Level 3 Est. Patient 10:09:22 BALANCE STAFF INSPECTOR Alina Castaneda MD [facility]-01988 Level 3 Est. Patient 14:36:26 BALANCE STAFF INSPECTOR Marvel [facility]-88515 Level 3 Est. Patient 13:34:47 BALANCE STAFF INSPECTOR Alina Castaneda MD [facility]-13250 Level 3 Est. Patient 19:52:08 BALANCE STAFF INSPECTOR Alina Castaneda MD [facility]-93446 Level 3 Est. Patient 10:01:51 BALANCE STAFF INSPECTOR Marvel Charles [facility]-00025 Level 3 Est. Patient 21:54:06 CDT Vanessa Hickey MD [facility]-29076 Level 3 Est. Patient 08:54:46 CDT Alina Castaneda MD [id number] Level 3 Est. Patient 09:32:11 CDT Marvel Charles [facility]-96118 Level 3 Est. Patient 12:02:49 CDT Alina Castaneda MD [facility]-38763 Level 3 Est. Patient 19:17:33 CDT Alina Castaneda MD [facility]-87569 Level 3 Est. Patient 13:19:10 CDT Marvel Thurstonestela [facility]-32438 Level 3 Est. Patient 08:20:05 CDT Alina Castaneda MD [facility]-86406 Level 3 Est. Patient 15:17:18 CDT Alina Castaneda MD [facility]-16359 Level 3 Est. Patient 14:25:36 BALANCE STAFF INSPECTOR Marvel Charles [facility]-09159 Level 3 Est. Patient 10:09:15 BALANCE STAFF INSPECTOR Marvel Charles [facility]-99513 Level 3 Est. Patient 21:28:43 CDT Alina Castaneda MD [facility]-12440 Level 3 Est. Patient 15:20:11 CDT Marvel Gurdeepajayestela [facility]-38991 Level 4 Est. Patient 19:08:12 CDT Alina Castaneda MD [facility]-34277 Level 3 Est. Patient 15:06:39 CDT Marvel Araceli [facility]-32794 Level 4 Est. Patient 17:48:15 CDT Alina Castaneda MD [facility]-69715 Level 3 Est. Patient 14:53:49 CDT Alina Castaneda MD [facility]25079 Level 3 Est. Patient 09:35:16 CDT Alina Castaneda MD [facility]-85378 Level 3 Est. Patient 12:23:22 CDT Alina Castaneda MD [facility]-62310 Level 3 Est. Patient 16:19:15 CDT Alina Castaneda MD [facility]-58106 Level 3 Est. Patient 21:39:56 BALANCE STAFF INSPECTOR Alina Castaneda MD [facility]-90985 Level 4 Est. Patient 14:12:56 BALANCE STAFF INSPECTOR Alina Castaneda MD [facility]10463 Level 2 Est. Patient 15:34:57 BALANCE STAFF INSPECTOR Alina Castaneda MD [facility]12399 Level 3 Est. Patient 12:17:04 BALANCE STAFF INSPECTOR Alina Castaneda MD [facility]86828 Level 3 Est. Patient 09:18:18 BALANCE STAFF INSPECTOR Marvel Charles [facility]-35348 Level 2 Est. Patient 21:50:24 CDT Alina Castaneda MD [facility]-16862 Level 3 Est. Patient 09:17:28 CDT Marvel Charles [facility]-80110 Level 4 Est. Patient 18:54:02 CDT Alina Castaneda MD [facility]-28188 Level 3 Est. Patient 10:47:10 CDT Alina Castaneda MD [facility]-27950 Level 3 Est. Patient 09:22:20 CDT Marvel Charles [facility]-12479 Level 3 Est. Patient 16:39:43 CDT Marvel Charles [facility]-77933 Level 3 Est. Patient 16:05:16 CDT Alina Castaneda MD [facility]12387 Level 3 Est. Patient 00:29:15 CDT Alina Castaneda MD PhD [facility] CPT-02048 Level 3 Est. Patient 10:49:22 BALANCE STAFF INSPECTOR Marvel Thurstonestela [facility] CPT-93510 Level 3 Est. Patient 21:30:19 BALANCE STAFF INSPECTOR Alina Castaneda MD PhD [facility] CPT-91256 Level 4 Est. Patient 17:04:11 BALANCE STAFF INSPECTOR Brooksnivia Charles [facility] CPT-85227 Level 3 Est. Patient 15:34:11 BALANCE STAFF INSPECTOR [facility]-24998 Level 2 Est. Patient 12:51:58 BALANCE STAFF INSPECTOR Alina Castaneda MD [facility] CPT-72443 Level 3 Est. Patient 13:20:01 BALANCE STAFF INSPECTOR Alina Castaneda MD PhD [facility] CPT-42812 Level 3 Est. Patient 09:23:35 CDT Alina Castaneda MD PhD [facility] Procedures Code Procedure Name Date Entry Date Standard Description CPT-33254 Bladder Scan 14:39:01 BALANCE STAFF INSPECTOR CPT-TCMM Transitional Care Mgmt-Moderate 10:30:19 BALANCE STAFF INSPECTOR CPT-32504 Bladder Scan 12:36:44 CDT CPT-30873 Bladder Scan 21:54:06 CDT CPT-G0008 Administration of Influenza Virus Vaccine 13:05:26 CDT CPT-30818 Fluzone Quadrivalent Intramuscular Suspension 0.5 ML 13: 05:26 CDT CPT-15374 Administration single or combination vaccine inc oral 11 :49:51 CDT CPT-56915 Pneumovax 11:49:51 CDT CPT-61093 Ribs unilateral 2V 12:37:22 BALANCE STAFF INSPECTOR CPT-03391 Chest 2V Frontal and Lat 17:15:26 CDT CPT-21358 Abx/Therapy Injection 18:54:02 CDT CPT-J0696 Rocephin 1000 mg (Ceftriaxone) 16:00:32 CDT CPT-97149 Chest 2V Frontal and Lat 15:26:45 CDT CPT-39363 Chest 2V Frontal and Lat 10:23:27 CDT CPT-98260 Venipuncture Draw Fee 10:11:00 CDT CPT-77207 Administration single or combination vaccine inc oral 11 :56:38 CDT CPT-71154 Influenza split virus > age 3 11:56:38 CDT CPT-94383 Venipuncture Draw Fee 08:49:54 BALANCE STAFF INSPECTOR CPT-32844 EKG Trac and Interp 17:54:19 BALANCE STAFF INSPECTOR
--- OUTSIDE RECORDS SUMMARY | 2018-07-02 13:46 | XMS REPORT | Clinical Summary ---
Author Author Admin, TERELL Organization [facility] Address Unknown Phone Unavailable Allergies, Adverse Reactions, [...] mouth three times daily for pain HYDROCODONE-ACETAMINOPHEN 48880847916 Active Alina Castaneda MD PhD Active HUMALOG KWIKPEN 100 UNIT/ML SC SOPN 20 units with breakfast, 10 units with lunch, 10 units with dinner, for diabetes INSULIN LISPRO (HUMAN ) 36256767239 Active Alina Castaneda MD PhD Active LEVEMIR FLEXTOUCH 100 UNIT/ML SC SOPN 70 units SQ each evening, for diabetes INSULIN DETEMIR 74303614572 Active Alina Castaneda MD PhD Active LATUDA 120 MG ORAL TABS 1 pill by mouth nightly LURASIDONE HCL 55810362296 Active Alina Castaneda MD PhD Active COLACE 100 MG CAPS 1 pill by mouth twice daily, for constipation DOCUSATE SODIUM 86304349206 Active Alina Castaneda MD PhD Active TRUETEST TEST STRP check blood sugars 3x/day GLUCOSE BLOOD 29868210866 Active Maljohn Ziglari PARKING ASSISTANT Active ACCU-CHEK ROSA UZMA Use device to check blood sugars BLOOD GLUCOSE MONITORING SUPPL 91543160877 No Longer Active [employer] Ziglari PARKING ASSISTANT Active ACCU-CHEK ROSA INVITR STRP use strips with device to check blood sugars 3 times daily GLUCOSE BLOOD 44916482012 No Longer Active [employer] 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 PARKING ASSISTANT Active VERAPAMIL HCL ER 180 MG ORAL CR-TABS 1 pill by mouth twice daily, for migraine prevention VERAPAMIL HCL 97295271934 Active Alina Castaneda MD PhD Active CYCLOBENZAPRINE HCL 10 MG TABS 1 tablet by mouth three times daily, scheduled CYCLOBENZAPRINE HCL 65714008476 No Longer Active Alina Castaneda MD PhD Active HUMALOG 100 UNIT/ML SOLN Take 20 units with breakfast, 10u with lunch and suppetr. INSULIN LISPRO (HUMAN) 84990915256 No Longer Active Alina Castaneda MD PhD Active TRUETEST TEST STRP check sugars 4x/day GLUCOSE BLOOD 98531758044 No Longer Active Alina Castaneda MD PhD Active MORPHINE SULFATE 30 MG TABS 1 pill by mouth twice daily, for pain MORPHINE SULFATE 74649958990 Active Alina Castaneda MD PhD Active ACYCLOVIR 400 MG ORAL TABS 1 pill three times daily x 5 days, for cold sore outbreak ACYCLOVIR 69745257860 No Longer Active Alina Castaneda MD PhD Active PENICILLIN V POTASSIUM 500 MG TABS 1 pill by mouth three times daily PENICILLIN V POTASSIUM 71814621818 No Longer Active Alina Castaneda MD PhD Active UROXATRAL 10 MG [id number] Take 1 tablet by mouth daily ALFUZOSIN HCL 71652270187 No Longer Active Alina Castaneda MD PhD Active THIOTHIXENE 5 MG CAPS by mouth twice a day THIOTHIXENE 65846351493 No Longer Active Alina Castaneda MD PhD Active ZYPREXA 7.5 MG TABS 1 at HS OLANZAPINE 84219913915 No Longer Active Alina Castaneda MD PhD Active BD INSULIN SYRINGE 28G X 1/2" 1 ML MISC 1 four times per day INSULIN SYRINGE-NEEDLE U-100 92241178737 Active Marvel Charles [facility] Active TOLTERODINE TARTRATE 2 MG TABS 1 pill twice daily, for bladder TOLTERODINE TARTRATE 60694524267 Active Alina Castaneda MD PhD Active DETROL LA 4 MG [id number] Take 1 tablet by mouth daily TOLTERODINE TARTRATE 53574301925 No Longer Active Alina Castaneda MD PhD Active TERESE CONTOUR TEST STRP monitor blood sugars 3x/day GLUCOSE BLOOD 09374012837 No Longer Active Alina Castaneda MD PhD Active EQL TRUETEST TEST STRP Test blood sugar TID GLUCOSE BLOOD 97799825502 No Longer Active Alina Castaneda MD PhD Active FLUTICASONE PROPIONATE 50 MCG/ACT SUSP 2 sprays each nostril qDay x 30 days FLUTICASONE PROPIONATE 72300589257 No Longer Active Alina Castaneda MD PhD Active IBUPROFEN 200 MG TABS 1 Q 6 hr. PRN IBUPROFEN 43059282031 No Longer Active Alina Castaneda MD PhD Active NIACIN ER 500 MG CR-TABS 4 qHS (for triglycerides) NIACIN 96687635204 No Longer Active Alina Castaneda MD PhD Active ALFUZOSIN HCL ER 10 MG [id number] 1 tablet daily ALFUZOSIN HCL 11676699366 Active Vanessa Hickey MD Active CLONAZEPAM 1 MG TABS 1 pill by mouth three times daily CLONAZEPAM 21184995571 Active Alina Castaneda MD PhD Active LOVAZA 1 GM CAPS 4 daily (for triglycerides) [id number] ETHYL ESTERS 65130614609 Active Alina Castaneda MD PhD Active SAPHRIS 5 MG SUBL by mouth twice a day ASENAPINE MALEATE 37548958854 No Longer Active Marvel MARROQUIN Active ACETAMINOPHEN 500 MG TABS 2 Q 6 hr. PRN ACETAMINOPHEN 94490508706 No Longer Active Marvel MARROQUIN Active ORPHENADRINE CITRATE ER 100 MG [id number] 1 every 12 hr. as needed ORPHENADRINE CITRATE 60055650412 No Longer Active Alina Castaneda MD PhD Active NIACIN CR 500 MG CR-TABS 2 qHS NIACIN 59124551426 No Longer Active Alina Castaneda MD PhD Active AMOXICILLIN 500 MG CAPS 2 po BID x 10 days AMOXICILLIN 91592012247 No Longer Active Alina Castaneda MD PhD Active HYDROCODONE-ACETAMINOPHEN 7.5-325 MG TABS 1 four times a day as needed for pain HYDROCODONE-ACETAMINOPHEN 36515503090 No Longer Active Alina Castaneda MD PhD Active METFORMIN HCL ER 500 MG [id number]-EZU Take three tablets by mouth everyday METFORMIN HCL 45857309501 Active Marvel Ziglari PARKING ASSISTANT Active DOXEPIN HCL 10 MG CAPS Take 1 tablet by mouth daily DOXEPIN HCL 75890997234 No Longer Active Salina Emely [facility] Active NAVANE 10 MG CAPS 1/2 tablet twice a day THIOTHIXENE No Longer Active Salina Han [facility] Active CYCLOBENZAPRINE HCL 10 MG TABS 1/2 tablet by mouth every 8 hours as needed for muscle spasms CYCLOBENZAPRINE HCL 55836660030 No Longer Active Alina Castaneda MD PhD Active BACTROBAN 2 % CREAM apply to ear and nose twice daily MUPIROCIN CALCIUM 10271569818 No Longer Active Alina Castaneda MD PhD Active HYDROCODONE-ACETAMINOPHEN 5-325 MG TABS take one tablet by mouth every four hours as needed for pain HYDROCODONE-ACETAMINOPHEN 73926308233 No Longer Active Alina Castaneda MD PhD Active ZOLPIDEM TARTRATE 10 MG TABS take at bedtime ZOLPIDEM TARTRATE 51819876493 Active Alina Castaneda MD PhD Active ZYPREXA 5 MG TABS take one tablet by mouth every evening OLANZAPINE 53416816926 No Longer Active Alina Castaneda MD PhD Active ALBUTEROL SULFATE 0.083 % NEBU SOLN one vial per nebulizer TID and PRN cough/ soa ALBUTEROL SULFATE 47501828233 No Longer Active Alina Castaneda MD PhD Active GUAIFENESIN 600 MG [id number]-UFH 1 tablet by mouth twice daily if needed for cough GUAIFENESIN 89718613463 No Longer Active Marvel MENDOZAP Active AZITHROMYCIN 500 MG SOLR 1 po q day AZITHROMYCIN 66264875224 No Longer Active Alina Castaneda MD PhD Active METOPROLOL SUCCINATE 100 MG [id number] 1 by mouth daily for blood pressure METOPROLOL SUCCINATE 21343663853 Active Alina Castaneda MD PhD Active PROMETHAZINE-CODEINE 6.25-10 MG/5ML SYRP 1 tsp po q 6 hours prn cough PROMETHAZINE-CODEINE 96745780311 No Longer Active Alina Castaneda MD PhD Active CEFDINIR 300 MG CAPS by mouth twice a day CEFDINIR 09725637190 No Longer Active Alina Castaneda MD PhD Active METFORMIN HCL 500 MG NI15F-QEQ Take 3 tablets by mouth everyday METFORMIN HCL 65504528833 No Longer Active Alina Castaneda MD PhD Active LEVEMIR 100 UNIT/ML SOLN 90 units SQ qHS INSULIN DETEMIR 59297834764 No Longer Active Marvel MARROQUIN Active TOPROL XL 100 MG [id number]-LWF 1 @ HS METOPROLOL SUCCINATE 98730400791 No Longer Active Marvel MARROQUIN Active ALLOPURINOL 300 MG TABS Take one by mouth daily ALLOPURINOL 76181841177 Active Alina Castaneda MD PhD Active ZYPREXA 10 MG TABS Take one by mouth daily OLANZAPINE 00727915328 No Longer Active Alina Castaneda MD PhD Active NOVOLOG 100 UNIT/ML SOLN 40 units with every meal INSULIN ASPART 08365641643 No Longer Active Alina Castaneda MD PhD Active VERAPAMIL HCL CR 120 MG TAB CR 1 qPM VERAPAMIL HCL 34051016951 No Longer Active Salina ROJAS Active ZYPREXA 15 MG TABS Take 1 tablet by mouth daily OLANZAPINE 82441075241 No Longer Active Marvel MARROQUIN Active LISINOPRIL 20 MG TABS 1 BID LISINOPRIL 23398431953 Active Alina Castaneda MD PhD Active ALBUTEROL SULFATE (2.5 MG/3ML) 0.083% NEBU 1 neb tid and prn cough ALBUTEROL SULFATE 84067541972 No Longer Active Alina Castaneda MD PhD Active FLUVOXAMINE MALEATE 100 MG TABS Take one (1) tablet by mouth am, 1/2 at noon, 1 pm FLUVOXAMINE MALEATE 88266602796 Active Alina Castaneda MD PhD Active TRAVATAN Z 0.004 % SOLN 1 gtt each eye daily TRAVOPROST 99350556254 Active Alina Andrea, RMA Active LANTUS 100 UNIT/ML SOLN 60 units sq q hs INSULIN GLARGINE 67849530938 No Longer Active Alina AndreaCRYSTAL Active ALBUTEROL SULFATE (2.5 MG/3ML) 0.083% NEBU 1 neb tid and prn cough ALBUTEROL SULFATE (2.5 MG/3ML) 0.083% NEBU 936711 ALBUTEROL SULFATE Inactive ZYPREXA 15 MG TABS Take 1 tablet by mouth daily ZYPREXA 15 MG TABS 811419 OLANZAPINE Inactive VERAPAMIL HCL CR 120 MG TAB CR 1 qPM VERAPAMIL HCL CR 120 MG TAB CR VERAPAMIL HCL Inactive ZYPREXA 10 MG TABS Take one by mouth daily ZYPREXA 10 MG TABS 412670 OLANZAPINE Inactive TOPROL XL 100 MG [id number] 1 @ HS TOPROL XL 100 MG US73R-IGZ METOPROLOL SUCCINATE Inactive LEVEMIR 100 UNIT/ML SOLN 90 units SQ qHS LEVEMIR 100 UNIT/ML SOLN INSULIN DETEMIR Inactive PROMETHAZINE-CODEINE 6.25-10 MG/5ML SYRP 1 tsp po q 6 hours prn cough PROMETHAZINE-CODEINE 6.25-10 MG/5ML SYRP 529737 PROMETHAZINE- CODEINE Inactive GUAIFENESIN 600 MG [id number]-AOK 1 tablet by mouth twice daily if needed for cough GUAIFENESIN 600 MG [id number]-BDY GUAIFENESIN Inactive ALBUTEROL SULFATE 0.083 % NEBU SOLN one vial per nebulizer TID and PRN cough/ soa ALBUTEROL SULFATE 0.083 % NEBU SOLN 504771 ALBUTEROL SULFATE Inactive ZYPREXA 5 MG TABS take one tablet by mouth every evening ZYPREXA 5 MG TABS 456803 OLANZAPINE Inactive HYDROCODONE-ACETAMINOPHEN 5-325 MG TABS take one tablet by mouth every four hours as needed for pain HYDROCODONE-ACETAMINOPHEN 5-325 MG TABS 863956 HYDROCODONE-ACETAMINOPHEN Inactive BACTROBAN 2 % CREAM apply to ear and nose twice daily BACTROBAN 2 % CREAM 317978 MUPIROCIN CALCIUM Inactive CYCLOBENZAPRINE HCL 10 MG TABS 1/2 tablet by mouth every 8 hours as needed for muscle spasms CYCLOBENZAPRINE HCL 10 MG TABS 191444 CYCLOBENZAPRINE HCL Inactive NAVANE 10 MG CAPS 1/2 tablet twice a day NAVANE 10 MG CAPS THIOTHIXENE Inactive DOXEPIN HCL 10 MG CAPS Take 1 tablet by mouth daily DOXEPIN HCL 10 MG CAPS 8637054 DOXEPIN HCL Inactive HYDROCODONE-ACETAMINOPHEN 7.5-325 MG TABS 1 four times a day as needed for pain HYDROCODONE-ACETAMINOPHEN 7.5-325 MG TABS 958948 HYDROCODONE-ACETAMINOPHEN Inactive NIACIN CR 500 MG CR-TABS 2 qHS NIACIN CR 500 MG CR- TABS NIACIN Inactive ORPHENADRINE CITRATE ER 100 MG [id number] 1 every 12 hr. as needed ORPHENADRINE CITRATE ER 100 MG [id number]-ZOA ORPHENADRINE CITRATE Inactive ACETAMINOPHEN 500 MG TABS 2 Q 6 hr. PRN ACETAMINOPHEN 500 MG TABS 725845 ACETAMINOPHEN Inactive SAPHRIS 5 MG SUBL by mouth twice a day SAPHRIS 5 MG SUBL ASENAPINE MALEATE Inactive NIACIN ER 500 MG CR-TABS 4 qHS (for triglycerides) NIACIN ER 500 MG CR-TABS NIACIN Inactive IBUPROFEN 200 MG TABS 1 Q 6 hr. PRN IBUPROFEN 200 MG TABS 045222 IBUPROFEN Inactive FLUTICASONE PROPIONATE 50 MCG/ACT SUSP 2 sprays each nostril qDay x 30 days FLUTICASONE PROPIONATE 50 MCG/ACT SUSP 926056 FLUTICASONE PROPIONATE Inactive EQL TRUETEST TEST STRP Test blood sugar TID EQL TRUETEST TEST STRP GLUCOSE BLOOD Inactive TERESE CONTOUR TEST STRP monitor blood sugars 3x/day TERESE CONTOUR TEST STRP GLUCOSE BLOOD Inactive DETROL LA 4 MG AZ54V-URZ Take 1 tablet by mouth daily DETROL LA 4 MG [id number] TOLTERODINE TARTRATE Inactive ZYPREXA 7.5 MG TABS 1 at HS ZYPREXA 7.5 MG TABS 599676 OLANZAPINE Inactive THIOTHIXENE 5 MG CAPS by mouth twice a day THIOTHIXENE 5 MG CAPS 318119 THIOTHIXENE Inactive UROXATRAL 10 MG [id number]-SZE Take 1 tablet by mouth daily UROXATRAL 10 MG [id number]-OXT ALFUZOSIN HCL Inactive ACYCLOVIR 400 MG ORAL TABS 1 pill three times daily x 5 days, for cold sore outbreak ACYCLOVIR 400 MG ORAL TABS 581739 ACYCLOVIR Inactive TRUETEST TEST STRP check sugars 4x/day TRUETEST TEST STRP GLUCOSE BLOOD Inactive HUMALOG 100 UNIT/ML SOLN Take 20 units with breakfast, 10u with lunch and suppetr. HUMALOG 100 UNIT/ML SOLN INSULIN LISPRO ( HUMAN) Inactive CYCLOBENZAPRINE HCL 10 MG TABS 1 tablet by mouth three times daily, scheduled CYCLOBENZAPRINE HCL 10 MG TABS 896324 CYCLOBENZAPRINE HCL Inactive ACCU-CHEK ROSA INVITR STRP use strips with device to check blood sugars 3 times daily ACCU-CHEK ROSA INVITR STRP GLUCOSE BLOOD Inactive ACCU-CHEK ROSA UZMA Use device to check blood sugars ACCU-CHEK ROSA UZMA BLOOD GLUCOSE MONITORING SUPPL Inactive CEFDINIR 300 MG CAPS by mouth twice a day CEFDINIR 300 MG CAPS 361700 CEFDINIR Inactive AZITHROMYCIN 500 MG SOLR 1 po q day AZITHROMYCIN 500 MG SOLR 418545 AZITHROMYCIN Inactive AMOXICILLIN 500 MG CAPS 2 po BID x 10 days AMOXICILLIN 500 MG CAPS 346350 AMOXICILLIN Inactive PENICILLIN V POTASSIUM 500 MG TABS 1 pill by mouth three times daily PENICILLIN V POTASSIUM 500 MG TABS 877817 PENICILLIN V POTASSIUM Inactive Immunizations Vaccine Administration [...] Fluvirin, Fluarix, Agriflu(>=18 yo)) Fluzone (>3 yrs.) [[id number]] Influenza, seasonal, injectable pneumococcal immunization administered Pneumovax [...] HGBA1C - Chemistry sodium, serum 131 mmol/L 118-826 0477/12/30 potassium, serum 5.0 mmol/L 3.5-5.2 chloride, serum 95 mmol/L 98-107 carbon dioxide, venous blood 26.7 mmol/L 21.0-32.0 blood glucose 112 mg/dL 65-110 calcium, serum 9.2 mg/dL 8.5-10.1 urea nitrogen, blood 12 mg/dL 7-18 creatinine, serum 1.10 mg/dL 0.60-1.30 hemoglobin A1C, blood, as % of total hemoglobin 5.8 % 4.3-6.0 Lab Report: Basic Metabolic Panel, HGBA1C, MICROALBUMIN - Chemistry sodium, serum 137 mmol/L 901-998 7404/05/19 potassium, serum 5.2 mmol/L 3.5-5.2 chloride, serum [...] microalbumin, urine 10 0-19 Lab Report: Chlamydia/GC APTIMA/07918, HIV-1/2 Agn/Dominga/69771, RPR (DX) W ... - Chemistry hepatitis B surface antigen NON-REACTIVE NON-REACTIVE Lab Report: Chlamydia/GC APTIMA/04939, HIV-1/2 Agn/Dominga/85940, RPR (DX) W ... - Lab chlamydia DNA probe NOT DETECTED NOT DETECTED Lab Report: Chlamydia/GC APTIMA/15270, HIV-1/2 Agn/Dominga/68937, RPR (DX) W ... - Microbiology Neisseria gonorrhoeae DNA probe NOT DETECTED NOT DETECTED Lab Report: Chlamydia/GC APTIMA/61701, HIV-1/2 Agn/Dominga/08886, RPR (DX) W ... - Serology rapid plasma reagin antibody titer NON-REACTIVE NON-REACTIVE Lab Report: Comp. Metabolic Panel - Chemistry sodium, serum 127 mmol/L 287-954 6841/10/27 potassium, serum 4.1 mmol/L 3.5-5.2 chloride, serum [...] CBC - Chemistry cholesterol, serum 131 mg/dL 517-389 2924/06/03 triglyceride, serum, fasting 383 mg/dL 30-200 HDL [...] 4.7 mg/dL 2.6-7.2 cholesterol, serum 142 mg/dL 829-619 2033/06/26 triglyceride, serum, fasting 272 mg/dL 30-200 HDL [...] mg/dL Encounters Code Encounter Date Provider Facility CPT-96745 Level 3 Est. Patient 14:46:15 [facility] Patient 09:34:56 CDT Alina Castaneda MD [facility]-53556 Level 3 Est. Patient 21:40:19 CDT Mima Erazo ALBAN [facility]-31003 Level 3 Est. Patient 09:26:40 CDT Marvel Charles [facility]-78873 Level 3 Est. Patient 12:36:43 CDT Vanessa Hickey MD [facility]-12967 Level 3 Est. Patient 12:57:49 CDT Vanessa Hickey MD [facility]-80175 Level 3 Est. Patient 00:28:25 CDT Alina [facility] MD [facility]99722 Level 2 Est. Patient 12:52:14 CDT Alina [facility]81101 Level 3 Est. Patient 11:51:18 HEEL BLACKER Alina Castaneda MD [facility]-82405 Level 3 Est. Patient 10:09:22 HEEL BLACKER Alina Cast[facility]eda MD [facility]04619 Level 3 Est. Patient 14:36:26 HEEL BLACKER Marvel Charles [facility][note 3]-12137 Level 3 Est. Patient 13:34:47 HEEL BLACKER Alina Castaneda MD [facility]-44447 Level 3 Est. Patient 19:52:08 HEEL BLACKER Alina Castaneda MD [facility]-04026 Level 3 Est. Patient 10:01:51 HEEL BLACKER Marvel Charles [facility]85086 Level 3 Est. Patient 21:54:06 CDT Vanessa Hickey MD [facility]-15242 Level 3 Est. Patient 08:54:46 CDT Alina Castaneda MD [facility]-34027 Level 3 Est. Patient 09:32:11 CDT Marvel Gurdeepajayestela [facility][note 3]-67525 Level 3 Est. Patient 12:02:49 CDT Alina Castaneda MD [facility]-53507 Level 3 Est. Patient 19:17:33 CDT Alina Castaneda MD [facility] [place]851 Level 3 Est. Patient 13:19:10 CDT Marvel Gurdeepajayestela [facility][note 3]-12585 Level 3 Est. Patient 08:20:05 CDT Alina Castaneda MD [facility]-32240 Level 3 Est. Patient 15:17:18 CDT Alina Castaneda MD [facility]-19357 Level 3 Est. Patient 14:25:36 HEEL BLACKER [facility] Est[facility] Patient 10:09:15 HEEL BLACKER Marvel Charles [facility][note 3]-92632 Level 3 Est. Patient 21:28:43 CDT Alina Castaneda MD [facility]-54879 Level 3 Est. Patient 15:20:11 CDT Marvel Araceli [facility][note 3]-88970 Level 4 Est. Patient 19:08:12 CDT Alina Castaneda MD [facility]-65647 Level 3 Est. Patient 15:06:39 CDT Marvel Charles [facility][note 3]-64365 Level 4 Est. Patient 17:48:15 CDT Alina Castaneda MD [facility]-20131 Level 3 Est. Patient 14:53:49 CDT Alina Castaneda MD [facility]-42047 Level 3 Est. Patient 09:35:16 CDT Alina Castaneda MD [facility]-68797 Level 3 Est. Patient 12:23:22 CDT Alina Castaneda MD [facility] [place]76895 Level 3 Est. Patient 16:19:15 CDT Alina Castaneda MD [facility]-85037 Level 3 Est. Patient 21:39:56 HEEL BLACKER Alina Castaneda MD [facility]-90195 Level 4 Est. Patient 14:12:56 HEEL BLACKER Alina Castaneda MD [facility]-07083 Level 2 Est. Patient 15:34:57 HEEL BLACKER Alina Castaneda MD [facility]-22015 Level 3 Est. Patient 12:17:04 HEEL BLACKER Alina Castaneda MD [facility]-81341 Level 3 Est. Patient 09:18:18 HEEL BLACKER Marvel Charles [facility][note 3]-70296 Level 2 Est. Patient 21:50:24 CDT Alina Castaneda MD [facility]-76418 Level 3 Est. Patient 09:17:28 CDT Marvel Charles [facility][note 3]-35138 Level 4 Est. Patient 18:54:02 CDT Alina Castaneda MD [facility] [place]03963 Level 3 Est. Patient 10:47:10 CDT Alina Castaneda MD [facility] [place]42690 Level 3 Est. Patient 09:22:20 CDT Marvel Charles [facility][note 3]-70840 Level 3 Est. Patient 16:39:43 CDT [facility]96703 Level 3 Est. Patient 16:05:16 CDT Alina Castaneda MD [facility] CPT-91643 Level 3 Est. Patient 00:29:15 CDT Alina Castaneda MD [facility] CPT-76311 Level 3 Est. Patient 10:49:22 HEEL BLACKER Marvel Gurdeepajayestela [facility] CPT-92941 Level 3 Est. Patient 21:30:19 HEEL BLACKER Alina Castaneda MD [facility] CPT-27061 Level 4 Est. Patient 17:04:11 HEEL BLACKER [place] Gurdeepajayestela [facility] CPT-51138 Level 3 Est. Patient 15:34:11 HEEL BLACKER [facility]62516 Level 2 Est. Patient 12:51:58 HEEL BLACKER Alina Castaneda MD [facility] CPT-38009 Level 3 Est. Patient 13:20:01 HEEL BLACKER Alina Castaneda MD [facility] CPT-78708 Level 3 Est. Patient 09:23:35 CDT Alina Castaneda MD [facility] Procedures Code Procedure Name Date Entry Date Standard Description CPT-76469 Bladder Scan 12:36:44 CDT CPT-47026 Bladder Scan 21:54:06 CDT CPT-G0008 Administration of Influenza Virus Vaccine 13:05:26 CDT CPT-97130 Fluzone Quadrivalent Intramuscular Suspension 0.5 ML 13: 05:26 CDT CPT-66341 Administration single or combination vaccine inc oral 11 :49:51 CDT CPT-49464 Pneumovax 11:49:51 CDT CPT-68295 Ribs unilateral 2V 12:37:22 HEEL BLACKER CPT-21037 Chest 2V Frontal and Lat 17:15:26 CDT CPT-91032 Abx/Therapy Injection 18:54:02 CDT CPT-J0696 Rocephin 1000 mg (Ceftriaxone) 16:00:32 CDT CPT-20080 Chest 2V Frontal and Lat 15:26:45 CDT CPT-94140 Chest 2V Frontal and Lat 10:23:27 CDT CPT-93298 Venipuncture Draw Fee 10:11:00 CDT CPT-72984 Administration single or combination vaccine inc oral 11 :56:38 CDT CPT-09771 Influenza split virus > age 3 11:56:38 CDT CPT-96223 Venipuncture Draw Fee 08:49:54 HEEL BLACKER CPT-31157 EKG Trac and Interp 17:54:19 HEEL BLACKER
--- OUTSIDE RECORDS SUMMARY | 2018-07-02 13:47 | XMS REPORT | Clinical Summary ---
[...] Description Annotate ESSENTIAL HYPERTENSION, BENIGN 401.1 Active Ailna Castaneda MD PhD Benign essential hypertension WOUND, [...] Asthma, unspecified OBSESSIVE-COMPULSIVE DISORDER 300.3 Active Alina aCstaneda MD PhD Obsessive-compulsive disorders GLAUCOMA NOS 365.9 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 Kacey COTTON INSPECTOR Benign paroxysmal positional vertigo Vertigo, benign paroxysmal position 386.11 Inactive Mima Kacey COTTON INSPECTOR Benign paroxysmal positional vertigo High-risk sexual behavior [...] 10u lunch and supper INSULIN LISPRO (HUMAN) 40327480357 Active Marvel Araceli MARROQUIN Active LATUDA 120 MG ORAL TABS 1 pill by mouth nightly LURASIDONE HCL 62845668671 Active Alina Castaneda MD PhD Active COLACE 100 MG CAPS 1 pill by mouth twice daily, for constipation DOCUSATE SODIUM 33717725318 Active Alina Castaneda MD PhD Active TRUETEST TEST STRP check blood sugars 3x/day GLUCOSE BLOOD 33177994538 Active Malnivia 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 INJECTION MOLDING SUPERVISOR Active ACCU-CHEK ROSA UZMA Use device to check blood sugars BLOOD GLUCOSE MONITORING SUPPL 89068302079 No Longer Active Marvel 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 INJECTION MOLDING SUPERVISOR Active ACCU-CHEK ROSA INVITR STRP use strips with device to check blood sugars 3 times daily GLUCOSE BLOOD 89477725326 No Longer Active Brooksnivia Araceli MENDOZAP Active VERAPAMIL HCL ER 180 MG ORAL CR-TABS 1 pill by mouth twice daily, for migraine prevention VERAPAMIL HCL 35340600102 Active Alina Castaneda MD PhD Active CYCLOBENZAPRINE HCL 10 MG TABS 1 tablet by mouth three times daily, scheduled CYCLOBENZAPRINE HCL 79959203637 No Longer Active Alina Castaneda MD PhD Active HUMALOG 100 UNIT/ML SOLN Take 20 units with breakfast, 10u with lunch and suppetr. INSULIN LISPRO (HUMAN) 75616962351 No Longer Active Alina Castaneda MD PhD Active TRUETEST TEST STRP check sugars 4x/day GLUCOSE BLOOD 00460169914 No Longer Active Alina Castaneda MD PhD Active MORPHINE SULFATE 30 MG TABS 1 pill by mouth twice daily, for pain MORPHINE SULFATE 65343042186 Active Mason Loredo MD Active ACYCLOVIR 400 MG ORAL TABS 1 pill three times daily x 5 days, for cold sore outbreak ACYCLOVIR 62970425600 No Longer Active Alina Castaneda MD PhD Active PENICILLIN V POTASSIUM 500 MG TABS 1 pill by mouth three times daily PENICILLIN V POTASSIUM 62549403600 No Longer Active Alina Castaneda MD PhD Active UROXATRAL 10 MG [id number] Take 1 tablet by mouth daily ALFUZOSIN HCL 62316257254 No Longer Active Alina Castaneda MD PhD Active THIOTHIXENE 5 MG CAPS by mouth twice a day THIOTHIXENE 21930970151 No Longer Active Alina Castaneda MD PhD Active ZYPREXA 7.5 MG TABS 1 at HS OLANZAPINE 78740034799 No Longer Active Alina Castaneda MD PhD Active LEVEMIR 100 UNIT/ML SOLN Take 70 u at 7-8pm INSULIN DETEMIR 17999728260 Active Mallashondaeh Ziglari INJECTION MOLDING SUPERVISOR Active BD INSULIN SYRINGE 28G X 1/2" 1 ML MISC 1 four times per day INSULIN SYRINGE-NEEDLE U-100 45905859355 Active Maljohn Mackenzieglari INJECTION MOLDING SUPERVISOR Active TOLTERODINE TARTRATE 2 MG TABS 1 pill twice daily, for bladder TOLTERODINE TARTRATE 27323447725 Active Alina Castaneda MD PhD Active DETROL LA 4 MG [id number]-[id number] Take 1 tablet by mouth daily TOLTERODINE TARTRATE 53607498554 No Longer Active Alina Castaneda MD PhD Active HYDROCODONE-ACETAMINOPHEN 5-325 MG TABS 2 tabs by mouth three times daily as needed for pain HYDROCODONE-ACETAMINOPHEN 27215379333 Active Alina Castaneda MD PhD Active TERESE CONTOUR TEST STRP monitor blood sugars 3x/day GLUCOSE BLOOD 60173755024 No Longer Active Alina Castaneda MD PhD Active EQL TRUETEST TEST STRP Test blood sugar TID GLUCOSE BLOOD 52078657141 No Longer Active Alina Castaneda MD PhD Active FLUTICASONE PROPIONATE 50 MCG/ACT SUSP 2 sprays each nostril qDay x 30 days FLUTICASONE PROPIONATE 38053626040 No Longer Active Alina Castaneda MD PhD Active IBUPROFEN 200 MG TABS 1 Q 6 hr. PRN IBUPROFEN 63556367044 No Longer Active Alina Castaneda MD PhD Active NIACIN ER 500 MG CR-TABS 4 qHS (for triglycerides) NIACIN 84413217401 No Longer Active Alina Castaneda MD PhD Active ALFUZOSIN HCL ER 10 MG [id number]-[id number] 1 tablet daily ALFUZOSIN HCL 27097728103 Active Vanessa Hickey MD Active CLONAZEPAM 1 MG TABS 1 pill by mouth three times daily CLONAZEPAM 25394110095 Active Alina Castaneda MD PhD Active LOVAZA 1 GM CAPS 4 daily (for triglycerides) [id number] ETHYL ESTERS 69892031274 Active Mao Rodriguez MD Active SAPHRIS 5 MG SUBL by mouth twice a day ASENAPINE MALEATE 49193200403 No Longer Active Marvel MARROQUIN Active ACETAMINOPHEN 500 MG TABS 2 Q 6 hr. PRN ACETAMINOPHEN 04856853627 No Longer Active Marvel MARROQUIN Active ORPHENADRINE CITRATE ER 100 MG [id number] 1 every 12 hr. as needed ORPHENADRINE CITRATE 08362592614 No Longer Active Alina Castaneda MD PhD Active NIACIN CR 500 MG CR-TABS 2 qHS NIACIN 99449661344 No Longer Active Alina Castaneda MD PhD Active AMOXICILLIN 500 MG CAPS 2 po BID x 10 days AMOXICILLIN 68836462806 No Longer Active Ailna Castaneda MD PhD Active HYDROCODONE-ACETAMINOPHEN 7.5-325 MG TABS 1 four times a day as needed for pain HYDROCODONE-ACETAMINOPHEN 26071736879 No Longer Active Alina Castaneda MD PhD Active METFORMIN HCL ER 500 MG BF50J-KOT Take three tablets by mouth everyday METFORMIN HCL 62689487318 Active Marvel MENDOZAP Active DOXEPIN HCL 10 MG CAPS Take 1 tablet by mouth daily DOXEPIN HCL 98747965006 No Longer Active Salina Han [facility] Active NAVANE 10 MG CAPS 1/2 tablet twice a day THIOTHIXENE No Longer Active Salina Han A Active CYCLOBENZAPRINE HCL 10 MG TABS 1/2 tablet by mouth every 8 hours as needed for muscle spasms CYCLOBENZAPRINE HCL 73065616224 No Longer Active Alina Castaneda MD PhD Active BACTROBAN 2 % CREAM apply to ear and nose twice daily MUPIROCIN CALCIUM 56981348936 No Longer Active Alina Castaneda MD PhD Active HYDROCODONE-ACETAMINOPHEN 5-325 MG TABS take one tablet by mouth every four hours as needed for pain HYDROCODONE-ACETAMINOPHEN 68285834803 No Longer Active Alina Castaneda MD PhD Active ZOLPIDEM TARTRATE 10 MG TABS take at bedtime ZOLPIDEM TARTRATE 88687670046 Active Alina Castaneda MD PhD Active ZYPREXA 5 MG TABS take one tablet by mouth every evening OLANZAPINE 42486473811 No Longer Active Alina Castaneda MD PhD Active ALBUTEROL SULFATE 0.083 % NEBU SOLN one vial per nebulizer TID and PRN cough/ soa ALBUTEROL SULFATE 94962553327 No Longer Active Alina Castaneda MD PhD Active GUAIFENESIN 600 MG UB79G-MCG 1 tablet by mouth twice daily if needed for cough GUAIFENESIN 79263447445 No Longer Active Marvel MENDOZAP Active AZITHROMYCIN 500 MG SOLR 1 po q day AZITHROMYCIN 83401249324 No Longer Active Alina Castaneda MD PhD Active METOPROLOL SUCCINATE 100 MG CF87J-ALL 1 by mouth daily for blood pressure METOPROLOL SUCCINATE 01852425985 Active Alina Castaneda MD PhD Active PROMETHAZINE-CODEINE 6.25-10 MG/5ML SYRP 1 tsp po q 6 hours prn cough PROMETHAZINE-CODEINE 33984168673 No Longer Active Alina Castaneda MD PhD Active CEFDINIR 300 MG CAPS by mouth twice a day CEFDINIR 71539098454 No Longer Active Alina Castaneda MD PhD Active METFORMIN HCL 500 MG DA39W-QFI Take 3 tablets by mouth everyday METFORMIN HCL 38128213150 No Longer Active Alina Castaneda MD PhD Active LEVEMIR 100 UNIT/ML SOLN 90 units SQ qHS INSULIN DETEMIR 07060512358 No Longer Active Marvel MARROQUIN Active TOPROL XL 100 MG GN10G-HEV 1 @ HS METOPROLOL SUCCINATE 83646120044 No Longer Active Marvel MARROQUIN Active ALLOPURINOL 300 MG TABS Take one by mouth daily ALLOPURINOL 66789591077 Active Alina Castaneda MD PhD Active ZYPREXA 10 MG TABS Take one by mouth daily OLANZAPINE 56151988222 No Longer Active Alina Castaneda MD PhD Active NOVOLOG 100 UNIT/ML SOLN 40 units with every meal INSULIN ASPART 10813605561 No Longer Active Alina Castaneda MD PhD Active VERAPAMIL HCL CR 120 MG TAB CR 1 qPM VERAPAMIL HCL 21677860594 No Longer Active Salina Han A Active ZYPREXA 15 MG TABS Take 1 tablet by mouth daily OLANZAPINE 49934218803 No Longer Active Marvel MARROQUIN Active LISINOPRIL 20 MG TABS 1 BID LISINOPRIL 28718577486 Active Alina Castaneda MD PhD Active ALBUTEROL SULFATE (2.5 MG/3ML) 0.083% NEBU 1 neb tid and prn cough ALBUTEROL SULFATE 68957848381 No Longer Active Alina Castaneda MD PhD Active FLUVOXAMINE MALEATE 100 MG TABS Take one (1) tablet by mouth am, 1/2 at noon, 1 pm FLUVOXAMINE MALEATE 81879171528 Active Alina Castaneda MD PhD Active TRAVATAN Z 0.004 % SOLN 1 gtt each eye daily TRAVOPROST 62831917698 Active CRYSTAL Suarez Active LANTUS 100 UNIT/ML SOLN 60 units sq q hs INSULIN GLARGINE 48513548906 No Longer Active CRYSTAL Suarez Active ALBUTEROL SULFATE (2.5 MG/3ML) 0.083% NEBU 1 neb tid and prn cough ALBUTEROL SULFATE (2.5 MG/3ML) 0.083% NEBU 673152 ALBUTEROL SULFATE Inactive ZYPREXA 15 MG TABS Take 1 tablet by mouth daily ZYPREXA 15 MG TABS 829023 OLANZAPINE Inactive VERAPAMIL HCL CR 120 MG TAB CR 1 qPM VERAPAMIL HCL CR 120 MG TAB CR VERAPAMIL HCL Inactive ZYPREXA 10 MG TABS Take one by mouth daily ZYPREXA 10 MG TABS 867402 OLANZAPINE Inactive TOPROL XL 100 MG [id number] 1 @ HS TOPROL XL 100 MG [id number]-CMS METOPROLOL SUCCINATE Inactive LEVEMIR 100 UNIT/ML SOLN 90 units SQ qHS LEVEMIR 100 UNIT/ML SOLN INSULIN DETEMIR Inactive PROMETHAZINE-CODEINE 6.25-10 MG/5ML SYRP 1 tsp po q 6 hours prn cough PROMETHAZINE-CODEINE 6.25-10 MG/5ML SYRP 668591 PROMETHAZINE- CODEINE Inactive GUAIFENESIN 600 MG XJ12C-AOJ 1 tablet by mouth twice daily if needed for cough GUAIFENESIN 600 MG OJ54G-YKH GUAIFENESIN Inactive ALBUTEROL SULFATE 0.083 % NEBU SOLN one vial per nebulizer TID and PRN cough/ soa ALBUTEROL SULFATE 0.083 % NEBU SOLN 933643 ALBUTEROL SULFATE Inactive ZYPREXA 5 MG TABS take one tablet by mouth every evening ZYPREXA 5 MG TABS 610941 OLANZAPINE Inactive HYDROCODONE-ACETAMINOPHEN 5-325 MG TABS take one tablet by mouth every four hours as needed for pain HYDROCODONE-ACETAMINOPHEN 5-325 MG TABS 318468 HYDROCODONE-ACETAMINOPHEN Inactive BACTROBAN 2 % CREAM apply to ear and nose twice daily BACTROBAN 2 % CREAM 100705 MUPIROCIN CALCIUM Inactive CYCLOBENZAPRINE HCL 10 MG TABS 1/2 tablet by mouth every 8 hours as needed for muscle spasms CYCLOBENZAPRINE HCL 10 MG TABS 827627 CYCLOBENZAPRINE HCL Inactive NAVANE 10 MG CAPS 1/2 tablet twice a day NAVANE 10 MG CAPS THIOTHIXENE Inactive DOXEPIN HCL 10 MG CAPS Take 1 tablet by mouth daily DOXEPIN HCL 10 MG CAPS 7597769 DOXEPIN HCL Inactive HYDROCODONE-ACETAMINOPHEN 7.5-325 MG TABS 1 four times a day as needed for pain HYDROCODONE-ACETAMINOPHEN 7.5-325 MG TABS 062119 HYDROCODONE-ACETAMINOPHEN Inactive NIACIN CR 500 MG CR-TABS 2 qHS NIACIN CR 500 MG CR- TABS NIACIN Inactive ORPHENADRINE CITRATE ER 100 MG CA30U-QOR 1 every 12 hr. as needed ORPHENADRINE CITRATE ER 100 MG [id number]-PFQ ORPHENADRINE CITRATE Inactive ACETAMINOPHEN 500 MG TABS 2 Q 6 hr. PRN ACETAMINOPHEN 500 MG TABS 699493 ACETAMINOPHEN Inactive SAPHRIS 5 MG SUBL by mouth twice a day SAPHRIS 5 MG SUBL ASENAPINE MALEATE Inactive NIACIN ER 500 MG CR-TABS 4 qHS (for triglycerides) NIACIN ER 500 MG CR-TABS NIACIN Inactive IBUPROFEN 200 MG TABS 1 Q 6 hr. PRN IBUPROFEN 200 MG TABS 373705 IBUPROFEN Inactive FLUTICASONE PROPIONATE 50 MCG/ACT SUSP 2 sprays each nostril qDay x 30 days FLUTICASONE PROPIONATE 50 MCG/ACT SUSP 789241 FLUTICASONE PROPIONATE Inactive EQL TRUETEST TEST STRP Test blood sugar TID EQL TRUETEST TEST STRP GLUCOSE BLOOD Inactive TERESE CONTOUR TEST STRP monitor blood sugars 3x/day TERESE CONTOUR TEST STRP GLUCOSE BLOOD Inactive DETROL LA 4 MG [id number]-SIW Take 1 tablet by mouth daily DETROL LA 4 MG [id number]-DVZ TOLTERODINE TARTRATE Inactive ZYPREXA 7.5 MG TABS 1 at HS ZYPREXA 7.5 MG TABS 409400 OLANZAPINE Inactive THIOTHIXENE 5 MG CAPS by mouth twice a day THIOTHIXENE 5 MG CAPS 056065 THIOTHIXENE Inactive UROXATRAL 10 MG NV97D-VLX Take 1 tablet by mouth daily UROXATRAL 10 MG FR49Z-GFV ALFUZOSIN HCL Inactive ACYCLOVIR 400 MG ORAL TABS 1 pill three times daily x 5 days, for cold sore outbreak ACYCLOVIR 400 MG ORAL TABS 535440 ACYCLOVIR Inactive TRUETEST TEST STRP check sugars 4x/day TRUETEST TEST STRP GLUCOSE BLOOD Inactive HUMALOG 100 UNIT/ML SOLN Take 20 units with breakfast, 10u with lunch and suppetr. HUMALOG 100 UNIT/ML SOLN INSULIN LISPRO ( HUMAN) Inactive CYCLOBENZAPRINE HCL 10 MG TABS 1 tablet by mouth three times daily, scheduled CYCLOBENZAPRINE HCL 10 MG TABS 446266 CYCLOBENZAPRINE HCL Inactive ACCU-CHEK ROSA INVITR STRP use strips with device to check blood sugars 3 times daily ACCU-CHEK ROSA INVITR STRP GLUCOSE BLOOD Inactive ACCU-CHEK ROSA UZMA Use device to check blood sugars ACCU-CHEK ROSA UZMA BLOOD GLUCOSE MONITORING SUPPL Inactive CEFDINIR 300 MG CAPS by mouth twice a day CEFDINIR 300 MG CAPS 652462 CEFDINIR Inactive AZITHROMYCIN 500 MG SOLR 1 po q day AZITHROMYCIN 500 MG SOLR 012736 AZITHROMYCIN Inactive AMOXICILLIN 500 MG CAPS 2 po BID x 10 days AMOXICILLIN 500 MG CAPS 134548 AMOXICILLIN Inactive PENICILLIN V POTASSIUM 500 MG TABS 1 pill by mouth three times daily PENICILLIN V POTASSIUM 500 MG TABS 180075 PENICILLIN V POTASSIUM Inactive Immunizations Vaccine Administration [...] Fluvirin, Fluarix, Agriflu(>=18 yo)) Fluzone (>3 yrs.) [VDR032] Influenza, seasonal, injectable pneumococcal immunization administered Pneumovax [...] pressure, diastolic - 8462-4 67 mm[Hg] BP agrcia blood pressure, systolic - 8480-6 134 mm[Hg] [...] HGBA1C - Chemistry sodium, serum 130 mmol/L 022-560 5908/06/09 potassium, serum 4.0 mmol/L 3.5-5.2 chloride, serum 92 mmol/L 98-107 carbon dioxide, venous blood 22.1 mmol/L 21.0-32.0 blood glucose 60 mg/dL 65-110 calcium, serum 9.5 mg/dL 8.5-10.1 urea nitrogen, blood 14 mg/dL 7-18 creatinine, serum 1.30 mg/dL 0.60-1.30 hemoglobin A1C, blood, as % of total hemoglobin 6.0 % 4.3-6.0 sodium, serum 131 mmol/L 172-308 0602/12/30 potassium, serum 5.0 mmol/L 3.5-5.2 chloride, serum 95 mmol/L 98-107 carbon dioxide, venous blood 26.7 mmol/L 21.0-32.0 blood glucose 112 mg/dL 65-110 calcium, serum 9.2 mg/dL 8.5-10.1 urea nitrogen, blood 12 mg/dL 7-18 creatinine, serum 1.10 mg/dL 0.60-1.30 hemoglobin A1C, blood, as % of total hemoglobin 5.8 % 4.3-6.0 Lab Report: Basic Metabolic Panel, HGBA1C, MICROALBUMIN - Chemistry sodium, serum 137 mmol/L 254-410 4447/05/19 potassium, serum 5.2 mmol/L 3.5-5.2 chloride, serum [...] Panel - Chemistry sodium, serum 127 mmol/L 651-463 2410/10/27 potassium, serum 4.1 mmol/L 3.5-5.2 chloride, serum [...] mg/g mg/g{creat} 0-29 cholesterol, serum 131 mg/dL 156-321 4240/06/03 triglyceride, serum, fasting 383 mg/dL 30-200 HDL [...] mg/dL Encounters Code Encounter Date Provider Facility CPT-51436 Level 3 Est. Patient 09:34:56 CDT Alina Castaneda MD PhD [facility] CPT-60757 Level 3 Est. Patient 21:40:19 CDT Mima rEazo APRN [facility] CPT-59793 Level 3 Est. Patient 09:26:40 CDT Marvel Charles [facility] CPT-55081 Level 3 Est. Patient 12:36:43 CDT Vanessa Hickey MD [facility] CPT-38449 Level 3 Est. Patient 12:57:49 CDT Vanessa Hickey MD [facility] CPT-92560 Level 3 Est. Patient 00:28:25 CDT Alina Castaneda MD PhD [facility] CPT-78311 Level 2 Est. Patient 12:52:14 CDT Alina Castaneda MD [facility] CPT-89023 Level 3 Est. Patient 11:51:18 RESEARCH NURSE PRACTITIONER Alina Castaneda MD [facility] CPT-38746 Level 3 Est. Patient 10:09:22 RESEARCH NURSE PRACTITIONER Alina Castaneda MD PhD [facility] CPT-45093 Level 3 Est. Patient 14:36:26 RESEARCH NURSE PRACTITIONER Marvel Charles [facility] CPT-68676 Level 3 Est. Patient 13:34:47 RESEARCH NURSE PRACTITIONER Alina Castaneda MD [facility]-09247 Level 3 Est. Patient 19:52:08 RESEARCH NURSE PRACTITIONER Alina Castaneda MD [facility]-08107 Level 3 Est. Patient 10:01:51 RESEARCH NURSE PRACTITIONER Marvel Araceli [facility]-78626 Level 3 Est. Patient 21:54:06 CDT Vanessa Hickey MD [facility]-02211 Level 3 Est. Patient 08:54:46 CDT Alina Castaneda MD [facility]-77239 Level 3 Est. Patient 09:32:11 CDT Marvel Charles [facility]-56769 Level 3 Est. Patient 12:02:49 CDT Alina Castaneda MD [facility]-80556 Level 3 Est. Patient 19:17:33 CDT Alina Castaneda MD [facility]-29310 Level 3 Est. Patient 13:19:10 CDT Marvel Charles [facility]-61452 Level 3 Est. Patient 08:20:05 CDT Alina Castaneda MD [facility]-14694 Level 3 Est. Patient 15:17:18 CDT Alina Castaneda MD [facility]-94084 Level 3 Est. Patient 14:25:36 RESEARCH NURSE PRACTITIONER Brooksjohn Charles [facility]-99694 Level 3 Est. Patient 10:09:15 RESEARCH NURSE PRACTITIONER Marvel Charles [facility]-61551 Level 3 Est. Patient 21:28:43 CDT Alina Castaneda MD [facility]-98391 Level 3 Est. Patient 15:20:11 CDT Zainnivia Charles [facility] CPT-36126 Level 4 Est. Patient 19:08:12 CDT Alina Castaneda MD [facility]-97901 Level 3 Est. Patient 15:06:39 [facility] CPT-18430 Level 4 Est. Patient 17:48:15 CDT Alina Castaneda MD [facility]-73117 Level 3 Est. Patient 14:53:49 CDT Alina Castaneda MD [facility]-93643 Level 3 Est. Patient 09:35:16 CDT Alina Castaneda MD [facility]-22651 Level 3 Est. Patient 12:23:22 CDT Alina Castaneda MD [facility]-00770 Level 3 Est. Patient 16:19:15 CDT Alina Castaneda MD [facility]-10723 Level 3 Est. Patient 21:39:56 RESEARCH NURSE PRACTITIONER Alina Castaneda MD [facility]-99076 Level 4 Est. Patient 14:12:56 RESEARCH NURSE PRACTITIONER Alina Castaneda MD [facility]-96688 Level 2 Est. Patient 15:34:57 RESEARCH NURSE PRACTITIONER Alina Castaneda MD [facility] CPT-35834 Level 3 Est. Patient 12:17:04 RESEARCH NURSE PRACTITIONER Alina Castaneda MD [facility]-31526 Level 3 Est. Patient 09:18:18 RESEARCH NURSE PRACTITIONER Marvel Charles [facility] CPT-15397 Level 2 Est. Patient 21:50:24 CDT Alina Catsaneda MD PhD [facility] CPT-71867 Level 3 Est. Patient 09:17:28 CDT Marvel Araceli [facility] CPT-04347 Level 4 Est. Patient 18:54:02 CDT Alina Castaneda MD [facility] CPT-32694 Level 3 Est. Patient 10:47:10 CDT Alina Castaneda MD [facility] CPT-50366 Level 3 Est. Patient 09:22:20 CDT Marvel Araceli [facility] CPT-72526 Level 3 Est. Patient 16:39:43 CDT Marvel Araceli [facility] CPT-62452 Level 3 Est. Patient 16:05:16 CDT Alina Castaneda MD [facility] CPT-91445 Level 3 Est. Patient 00:29:15 CDT Alina Castaneda MD [facility] CPT-49383 Level 3 Est. Patient 10:49:22 RESEARCH NURSE PRACTITIONER Brooksjohn Charles [facility] CPT-98494 Level 3 Est. Patient 21:30:19 RESEARCH NURSE PRACTITIONER Alina Castaneda MD [facility] CPT-87100 Level 4 Est. Patient 17:04:11 RESEARCH NURSE PRACTITIONER Brookslashondanivia Araceli [facility] CPT-04497 Level 3 Est. Patient 15:34:11 RESEARCH NURSE PRACTITIONER Brookslashondanivia Araceli [facility] CPT-68038 Level 2 Est. Patient 12:51:58 RESEARCH NURSE PRACTITIONER Alina Castaneda MD [facility] CPT-36811 Level 3 Est. Patient 13:20:01 RESEARCH NURSE PRACTITIONER Alina Castaneda MD [facility] CPT-50284 Level 3 Est. Patient 09:23:35 CDT Alina Castaneda MD [facility] Procedures Code Procedure Name Date Entry Date Standard Description CPT-57808 Bladder Scan 12:36:44 CDT CPT-39131 Bladder Scan 21:54:06 CDT CPT-G0008 Administration of Influenza Virus Vaccine 13:05:26 CDT CPT-94494 Fluzone Quadrivalent Intramuscular Suspension 0.5 ML 13: 05:26 CDT CPT-74162 Administration single or combination vaccine inc oral 11 :49:51 CDT CPT-76872 Pneumovax 11:49:51 CDT CPT-21717 Ribs unilateral 2V 12:37:22 RESEARCH NURSE PRACTITIONER CPT-97103 Chest 2V Frontal and Lat 17:15:26 CDT CPT-55548 Abx/Therapy Injection 18:54:02 CDT CPT-J0696 Rocephin 1000 mg (Ceftriaxone) 16:00:32 CDT CPT-53849 Chest 2V Frontal and Lat 15:26:45 CDT CPT-09137 Chest 2V Frontal and Lat 10:23:27 CDT CPT-71033 Venipuncture Draw Fee 10:11:00 CDT CPT-26309 Administration single or combination vaccine inc oral 11 :56:38 CDT CPT-56344 Influenza split virus > age 3 11:56:38 CDT CPT-08537 Venipuncture Draw Fee 08:49:54 RESEARCH NURSE PRACTITIONER CPT-00975 EKG Trac and Interp 17:54:19 RESEARCH NURSE PRACTITIONER
--- OUTSIDE RECORDS SUMMARY | 2018-07-02 13:48 | XMS REPORT | Clinical Summary ---
Author Author Admin, TERELL Organization [facility] Address Unknown Phone Unavailable Allergies, [...] PhD Unspecified chest pain ANEMIA 285.9 Active lAina Castaneda MD PhD Anemia, unspecified REACTIVE AIRWAY [...] Vanessa Hickey MD Retention of urine, unspecified Vertigo, benign paroxysmal position 386.11 Active Mima Erazo APRN Benign paroxysmal positional vertigo WOUND, OPEN, NOSE ICD-873.20 Inactive Alina Castaneda [...] Castaneda MD PhD Confusion ICD-298.9 Inactive Alina Catsaneda MD PhD Medication List Medication Instructions Start Date Stop Date Generic Name NDC Status Provider Patient Instruction HUMALOG 100 UNIT/ML SC SOLN 20u am , 10u lunch and supper INSULIN LISPRO (HUMAN) 50677916322 Active Marvel MARROQUIN Active LATUDA 120 MG ORAL TABS 1 pill by mouth nightly LURASIDONE HCL 47091277248 Active Alina Castaneda MD PhD Active COLACE 100 MG CAPS 1 pill by mouth twice daily, for constipation DOCUSATE SODIUM 41898387176 Active Alina Castaneda MD PhD Active TRUETEST TEST STRP check blood sugars 3x/day GLUCOSE BLOOD 50665700478 Active Marvel Mackenzieglari LEAD COATER Active ACCU-CHEK ROSA UZMA Use device to check blood sugars BLOOD GLUCOSE MONITORING SUPPL 28488755554 No Longer Active Marvel Mackenzieglari LEAD COATER Active ACCU-CHEK ROSA INVITR STRP use strips with device to check blood sugars 3 times daily GLUCOSE BLOOD 87458353606 No Longer Active Mallashondaeh Ziglari LEAD COATER Active VERAPAMIL HCL ER 180 MG ORAL CR-TABS 1 pill by mouth twice daily, for migraine prevention VERAPAMIL HCL 46242005458 Active Alina Castaneda MD PhD Active CYCLOBENZAPRINE HCL 10 MG TABS 1 tablet by mouth three times daily, scheduled CYCLOBENZAPRINE HCL 42175854677 No Longer Active Alina Castaneda MD PhD Active HUMALOG 100 UNIT/ML SOLN Take 20 units with breakfast, 10u with lunch and suppetr. INSULIN LISPRO (HUMAN) 55720964240 No Longer Active Alina Castaneda MD PhD Active TRUETEST TEST STRP check sugars 4x/day GLUCOSE BLOOD 39447285304 No Longer Active Alina Castaneda MD PhD Active MORPHINE SULFATE 30 MG TABS 1 pill by mouth twice daily, for pain MORPHINE SULFATE 24035527326 Active Mason Loredo MD Active ACYCLOVIR 400 MG ORAL TABS 1 pill three times daily x 5 days, for cold sore outbreak ACYCLOVIR 44766973232 No Longer Active Alina Castaneda MD PhD Active PENICILLIN V POTASSIUM 500 MG TABS 1 pill by mouth three times daily PENICILLIN V POTASSIUM 80236635934 No Longer Active Alina Castaneda MD PhD Active UROXATRAL 10 MG II90H-STS Take 1 tablet by mouth daily ALFUZOSIN HCL 72595082092 No Longer Active Alina Castaneda MD PhD Active THIOTHIXENE 5 MG CAPS by mouth twice a day THIOTHIXENE 61728082384 No Longer Active Alina Castaneda MD PhD Active ZYPREXA 7.5 MG TABS 1 at HS OLANZAPINE 82272552096 No Longer Active Alina Castaneda MD PhD Active LEVEMIR 100 UNIT/ML SOLN Take 70 u at 7-8pm INSULIN DETEMIR 78440438426 Active Marvel Charles LEAD COATER Active BD INSULIN SYRINGE 28G X 1/2" 1 ML MISC 1 four times per day INSULIN SYRINGE-NEEDLE U-100 33422385029 Active Marvel MENDOZAP Active TOLTERODINE TARTRATE 2 MG TABS 1 pill twice daily, for bladder TOLTERODINE TARTRATE 89805228994 Active Alina Castaneda MD PhD Active DETROL LA 4 MG [id number]-CIS Take 1 tablet by mouth daily TOLTERODINE TARTRATE 53361049480 No Longer Active Alina Castaneda MD PhD Active HYDROCODONE-ACETAMINOPHEN 5-325 MG TABS 2 tabs by mouth three times daily as needed for pain HYDROCODONE-ACETAMINOPHEN 07339380459 Active Alina Castaneda MD PhD Active TERESE CONTOUR TEST STRP monitor blood sugars 3x/day GLUCOSE BLOOD 63305804562 No Longer Active Alina Castaneda MD PhD Active EQL TRUETEST TEST STRP Test blood sugar TID GLUCOSE BLOOD 40122644005 No Longer Active Alina Castaneda MD PhD Active FLUTICASONE PROPIONATE 50 MCG/ACT SUSP 2 sprays each nostril qDay x 30 days FLUTICASONE PROPIONATE 06330736578 No Longer Active Alina Castaneda MD PhD Active IBUPROFEN 200 MG TABS 1 Q 6 hr. PRN IBUPROFEN 57464456802 No Longer Active Alina Castaneda MD PhD Active NIACIN ER 500 MG CR-TABS 4 qHS (for triglycerides) NIACIN 32329137924 No Longer Active Alina Castaneda MD PhD Active ALFUZOSIN HCL ER 10 MG [id number] 1 tablet daily ALFUZOSIN HCL 84933788330 Active Vanessa Hickey MD Active CLONAZEPAM 1 MG TABS 1 pill by mouth three times daily CLONAZEPAM 44263448711 Active Alina Castaneda MD PhD Active LOVAZA 1 GM CAPS 4 daily (for triglycerides) [id number] ETHYL ESTERS 22596027809 Active Mao Rodriguez MD Active SAPHRIS 5 MG SUBL by mouth twice a day ASENAPINE MALEATE 67914823341 No Longer Active Marvel MARROQUIN Active ACETAMINOPHEN 500 MG TABS 2 Q 6 hr. PRN ACETAMINOPHEN 48421574631 No Longer Active Marvel MARROQUIN Active ORPHENADRINE CITRATE ER 100 MG [id number] 1 every 12 hr. as needed ORPHENADRINE CITRATE 71175139721 No Longer Active Alina Castaneda MD PhD Active NIACIN CR 500 MG CR-TABS 2 qHS NIACIN 61037363006 No Longer Active Alina Castaneda MD PhD Active AMOXICILLIN 500 MG CAPS 2 po BID x 10 days AMOXICILLIN 44292400498 No Longer Active Alina Castaneda MD PhD Active HYDROCODONE-ACETAMINOPHEN 7.5-325 MG TABS 1 four times a day as needed for pain HYDROCODONE-ACETAMINOPHEN 38812096351 No Longer Active Alina Castaneda MD PhD Active METFORMIN HCL ER 500 MG TP13A-OSQ Take three tablets by mouth everyday METFORMIN HCL 28546145065 Active Marvel MARROQUIN Active DOXEPIN HCL 10 MG CAPS Take 1 tablet by mouth daily DOXEPIN HCL 76942287811 No Longer Active Salina Ervinford [facility] Active NAVANE 10 MG CAPS 1/2 tablet twice a day THIOTHIXENE No Longer Active Salina Ervinford A Active CYCLOBENZAPRINE HCL 10 MG TABS 1/2 tablet by mouth every 8 hours as needed for muscle spasms CYCLOBENZAPRINE HCL 26237153761 No Longer Active Alina Castaneda MD PhD Active BACTROBAN 2 % CREAM apply to ear and nose twice daily MUPIROCIN CALCIUM 42662021699 No Longer Active Alina Castaneda MD PhD Active HYDROCODONE-ACETAMINOPHEN 5-325 MG TABS take one tablet by mouth every four hours as needed for pain HYDROCODONE-ACETAMINOPHEN 17970258819 No Longer Active Alina Castaneda MD PhD Active ZOLPIDEM TARTRATE 10 MG TABS take at bedtime ZOLPIDEM TARTRATE 99728110089 Active Alina Castaneda MD PhD Active ZYPREXA 5 MG TABS take one tablet by mouth every evening OLANZAPINE 94957464073 No Longer Active Alina Castaneda MD PhD Active ALBUTEROL SULFATE 0.083 % NEBU SOLN one vial per nebulizer TID and PRN cough/ soa ALBUTEROL SULFATE 54529530383 No Longer Active Alina Castaneda MD PhD Active GUAIFENESIN 600 MG [id number] 1 tablet by mouth twice daily if needed for cough GUAIFENESIN 10412850707 No Longer Active Marvel MARROQUIN Active AZITHROMYCIN 500 MG SOLR 1 po q day AZITHROMYCIN 96414361319 No Longer Active Alina Castaneda MD PhD Active METOPROLOL SUCCINATE 100 MG AU41R-PLU 1 by mouth daily for blood pressure METOPROLOL SUCCINATE 06334364588 Active Alina Castaneda MD PhD Active PROMETHAZINE-CODEINE 6.25-10 MG/5ML SYRP 1 tsp po q 6 hours prn cough PROMETHAZINE-CODEINE 92449871196 No Longer Active Alina Castaneda MD PhD Active CEFDINIR 300 MG CAPS by mouth twice a day CEFDINIR 95651835193 No Longer Active Alina Castaneda MD PhD Active METFORMIN HCL 500 MG XF28R-FTW Take 3 tablets by mouth everyday METFORMIN HCL 40871714158 No Longer Active Alina Castaneda MD PhD Active LEVEMIR 100 UNIT/ML SOLN 90 units SQ qHS INSULIN DETEMIR 13238493560 No Longer Active Marvel MARROQUIN Active TOPROL XL 100 MG MB55H-YHC 1 @ HS METOPROLOL SUCCINATE 89759468990 No Longer Active Marvel MARROQUIN Active ALLOPURINOL 300 MG TABS Take one by mouth daily ALLOPURINOL 95031514776 Active Alina Castaneda MD PhD Active ZYPREXA 10 MG TABS Take one by mouth daily OLANZAPINE 54693379110 No Longer Active Alina Castaneda MD PhD Active NOVOLOG 100 UNIT/ML SOLN 40 units with every meal INSULIN ASPART 39477890092 No Longer Active Alina Castaneda MD PhD Active VERAPAMIL HCL CR 120 MG TAB CR 1 qPM VERAPAMIL HCL 16291965777 No Longer Active Salina Han RMA Active ZYPREXA 15 MG TABS Take 1 tablet by mouth daily OLANZAPINE 32407227787 No Longer Active Marvel Mackenzieajayestela LEAD COATER Active LISINOPRIL 20 MG TABS 1 BID LISINOPRIL 70184032078 Active Alina Castaneda MD PhD Active ALBUTEROL SULFATE (2.5 MG/3ML) 0.083% NEBU 1 neb tid and prn cough ALBUTEROL SULFATE 35119607059 No Longer Active Alina Castaneda MD PhD Active FLUVOXAMINE MALEATE 100 MG TABS Take one (1) tablet by mouth am, 1/2 at noon, 1 pm FLUVOXAMINE MALEATE 26644623757 Active Alina Castaneda MD PhD Active TRAVATAN Z 0.004 % SOLN 1 gtt each eye daily TRAVOPROST 77582162965 Active CRYSTAL Suarez Active LANTUS 100 UNIT/ML SOLN 60 units sq q hs INSULIN GLARGINE 40285506556 No Longer Active CRYSTAL Suarez Active ALBUTEROL SULFATE (2.5 MG/3ML) 0.083% NEBU 1 neb tid and prn cough ALBUTEROL SULFATE (2.5 MG/3ML) 0.083% NEBU 580011 ALBUTEROL SULFATE Inactive ZYPREXA 15 MG TABS Take 1 tablet by mouth daily ZYPREXA 15 MG TABS 758871 OLANZAPINE Inactive VERAPAMIL HCL CR 120 MG TAB CR 1 qPM VERAPAMIL HCL CR 120 MG TAB CR VERAPAMIL HCL Inactive ZYPREXA 10 MG TABS Take one by mouth daily ZYPREXA 10 MG TABS 602882 OLANZAPINE Inactive TOPROL XL 100 MG EC99S-LTF 1 @ HS TOPROL XL 100 MG DW07R-FAC METOPROLOL SUCCINATE Inactive LEVEMIR 100 UNIT/ML SOLN 90 units SQ qHS LEVEMIR 100 UNIT/ML SOLN INSULIN DETEMIR Inactive PROMETHAZINE-CODEINE 6.25-10 MG/5ML SYRP 1 tsp po q 6 hours prn cough PROMETHAZINE-CODEINE 6.25-10 MG/5ML SYRP 553700 PROMETHAZINE- CODEINE Inactive GUAIFENESIN 600 MG IW55J-COS 1 tablet by mouth twice daily if needed for cough GUAIFENESIN 600 MG IZ82F-ODJ GUAIFENESIN Inactive ALBUTEROL SULFATE 0.083 % NEBU SOLN one vial per nebulizer TID and PRN cough/ soa ALBUTEROL SULFATE 0.083 % NEBU SOLN 170951 ALBUTEROL SULFATE Inactive ZYPREXA 5 MG TABS take one tablet by mouth every evening ZYPREXA 5 MG TABS 306985 OLANZAPINE Inactive HYDROCODONE-ACETAMINOPHEN 5-325 MG TABS take one tablet by mouth every four hours as needed for pain HYDROCODONE-ACETAMINOPHEN 5-325 MG TABS 805628 HYDROCODONE-ACETAMINOPHEN Inactive BACTROBAN 2 % CREAM apply to ear and nose twice daily BACTROBAN 2 % CREAM 226618 MUPIROCIN CALCIUM Inactive CYCLOBENZAPRINE HCL 10 MG TABS 1/2 tablet by mouth every 8 hours as needed for muscle spasms CYCLOBENZAPRINE HCL 10 MG TABS 057071 CYCLOBENZAPRINE HCL Inactive NAVANE 10 MG CAPS 1/2 tablet twice a day NAVANE 10 MG CAPS THIOTHIXENE Inactive DOXEPIN HCL 10 MG CAPS Take 1 tablet by mouth daily DOXEPIN HCL 10 MG CAPS 8403378 DOXEPIN HCL Inactive HYDROCODONE-ACETAMINOPHEN 7.5-325 MG TABS 1 four times a day as needed for pain HYDROCODONE-ACETAMINOPHEN 7.5-325 MG TABS 298943 HYDROCODONE-ACETAMINOPHEN Inactive NIACIN CR 500 MG CR-TABS 2 qHS NIACIN CR 500 MG CR- TABS NIACIN Inactive ORPHENADRINE CITRATE ER 100 MG [id number] 1 every 12 hr. as needed ORPHENADRINE CITRATE ER 100 MG [id number] ORPHENADRINE CITRATE Inactive ACETAMINOPHEN 500 MG TABS 2 Q 6 hr. PRN ACETAMINOPHEN 500 MG TABS 858498 ACETAMINOPHEN Inactive SAPHRIS 5 MG SUBL by mouth twice a day SAPHRIS 5 MG SUBL ASENAPINE MALEATE Inactive NIACIN ER 500 MG CR-TABS 4 qHS (for triglycerides) NIACIN ER 500 MG CR-TABS NIACIN Inactive IBUPROFEN 200 MG TABS 1 Q 6 hr. PRN IBUPROFEN 200 MG TABS 593591 IBUPROFEN Inactive FLUTICASONE PROPIONATE 50 MCG/ACT SUSP 2 sprays each nostril qDay x 30 days FLUTICASONE PROPIONATE 50 MCG/ACT SUSP 105561 FLUTICASONE PROPIONATE Inactive EQL TRUETEST TEST STRP Test blood sugar TID EQL TRUETEST TEST STRP GLUCOSE BLOOD Inactive TERESE CONTOUR TEST STRP monitor blood sugars 3x/day TERESE CONTOUR TEST STRP GLUCOSE BLOOD Inactive DETROL LA 4 MG [id number]-QTF Take 1 tablet by mouth daily DETROL LA 4 MG [id number] TOLTERODINE TARTRATE Inactive ZYPREXA 7.5 MG TABS 1 at HS ZYPREXA 7.5 MG TABS 177230 OLANZAPINE Inactive THIOTHIXENE 5 MG CAPS by mouth twice a day THIOTHIXENE 5 MG CAPS 452600 THIOTHIXENE Inactive UROXATRAL 10 MG [id number]-UMO Take 1 tablet by mouth daily UROXATRAL 10 MG AG98V-JLW ALFUZOSIN HCL Inactive ACYCLOVIR 400 MG ORAL TABS 1 pill three times daily x 5 days, for cold sore outbreak ACYCLOVIR 400 MG ORAL TABS 533129 ACYCLOVIR Inactive TRUETEST TEST STRP check sugars 4x/day TRUETEST TEST STRP GLUCOSE BLOOD Inactive HUMALOG 100 UNIT/ML SOLN Take 20 units with breakfast, 10u with lunch and suppetr. HUMALOG 100 UNIT/ML SOLN INSULIN LISPRO ( HUMAN) Inactive CYCLOBENZAPRINE HCL 10 MG TABS 1 tablet by mouth three times daily, scheduled CYCLOBENZAPRINE HCL 10 MG TABS 491349 CYCLOBENZAPRINE HCL Inactive ACCU-CHEK ROSA INVITR STRP use strips with device to check blood sugars 3 times daily ACCU-CHEK ROSA INVITR STRP GLUCOSE BLOOD Inactive ACCU-CHEK ROSA UZMA Use device to check blood sugars ACCU-CHEK ROSA UZMA BLOOD GLUCOSE MONITORING SUPPL Inactive CEFDINIR 300 MG CAPS by mouth twice a day CEFDINIR 300 MG CAPS 755438 CEFDINIR Inactive AZITHROMYCIN 500 MG SOLR 1 po q day AZITHROMYCIN 500 MG SOLR 478839 AZITHROMYCIN Inactive AMOXICILLIN 500 MG CAPS 2 po BID x 10 days AMOXICILLIN 500 MG CAPS 601032 AMOXICILLIN Inactive PENICILLIN V POTASSIUM 500 MG TABS 1 pill by mouth three times daily PENICILLIN V POTASSIUM 500 MG TABS 978600 PENICILLIN V POTASSIUM Inactive Immunizations Vaccine Administration [...] Fluvirin, Fluarix, Agriflu(>=18 yo)) Fluzone (>3 yrs.) [AIG209] Influenza, seasonal, injectable pneumococcal immunization administered Pneumovax 23 [CVX33] pneumococcal polysaccharide vaccine, 23 valent Vital Signs Date Name Value Unit Range Description blood pressure, diastolic - 8462-4 60 mm[Hg] [...] HGBA1C - Chemistry sodium, serum 131 mmol/L 626-391 5513/12/30 potassium, serum 5.0 mmol/L 3.5-5.2 chloride, serum 95 mmol/L 98-107 carbon dioxide, venous blood 26.7 mmol/L 21.0-32.0 blood glucose 112 mg/dL 65-110 calcium, serum 9.2 mg/dL 8.5-10.1 urea nitrogen, blood 12 mg/dL 7-18 creatinine, serum 1.10 mg/dL 0.60-1.30 hemoglobin A1C, blood, as % of total hemoglobin 5.8 % 4.3-6.0 sodium, serum 130 mmol/L 453-229 9587/06/09 potassium, serum 4.0 mmol/L 3.5-5.2 chloride, serum 92 mmol/L 98-107 carbon dioxide, venous blood 22.1 mmol/L 21.0-32.0 blood glucose 60 mg/dL 65-110 calcium, serum 9.5 mg/dL 8.5-10.1 urea nitrogen, blood 14 mg/dL 7-18 creatinine, serum 1.30 mg/dL 0.60-1.30 hemoglobin A1C, blood, as % of total hemoglobin 6.0 % 4.3-6.0 Lab Report: Basic Metabolic Panel, HGBA1C, MICROALBUMIN - Chemistry sodium, serum 137 mmol/L 939-544 9542/05/19 potassium, serum 5.2 mmol/L 3.5-5.2 chloride, serum [...] Panel - Chemistry sodium, serum 127 mmol/L 240-499 7719/10/27 potassium, serum 4.1 mmol/L 3.5-5.2 chloride, serum [...] mg/dL Encounters Code Encounter Date Provider Facility CPT-93531 Level 3 Est. Patient 09:26:40 CDT Marvel Charles [facility]-57530 Level 3 Est. Patient 12:36:43 CDT Vanessa Hickey MD [facility]-83632 Level 3 Est. Patient 12:57:49 CDT Vanessa Hickey MD [facility]-69719 Level 3 Est. Patient 00:28:25 CDT Alina Castaneda MD [facility]-62833 Level 2 Est. Patient 12:52:14 CDT Alina Castaneda MD [facility]21021 Level 3 Est. Patient 11:51:18 SYSTEM SUPPORT ANALYST Alina Castaneda MD [facility]-91237 Level 3 Est. Patient 10:09:22 SYSTEM SUPPORT ANALYST Alina Castaneda MD [facility]-45286 Level 3 Est. Patient 14:36:26 SYSTEM SUPPORT ANALYST Marvel Charles [facility]-43964 Level 3 Est. Patient 13:34:47 SYSTEM SUPPORT ANALYST Alina Castaneda MD [facility]-31812 Level 3 Est. Patient 19:52:08 SYSTEM SUPPORT ANALYST Alina Castaneda MD [facility]-82667 Level 3 Est. Patient 10:01:51 SYSTEM SUPPORT ANALYST Marvel Charles [facility]-86720 Level 3 Est. Patient 21:54:06 CDT Vanessa Hickey MD [facility]-36815 Level 3 Est. Patient 08:54:46 CDT Alina Castaneda MD [facility]27676 Level 3 Est. Patient 09:32:11 CDT [facility] Araceli [facility]-82816 Level 3 Est. Patient 12:02:49 CDT Alina Castaneda MD [facility]-26606 Level 3 Est. Patient 19:17:33 CDT Alina Castaneda MD [facility]-15090 Level 3 Est. Patient 13:19:10 CDT Marvel Thurstonestela [facility]-51693 Level 3 Est. Patient 08:20:05 CDT Alina Castaneda MD [facility]-09251 Level 3 Est. Patient 15:17:18 CDT Alina Castaneda MD [facility]-46165 Level 3 Est. Patient 14:25:36 SYSTEM SUPPORT ANALYST [facility] Est[facility] Patient 10:09:15 SYSTEM SUPPORT ANALYST [facility]74776 Level 3 Est. Patient 21:28:43 CDT Alina Castaneda MD [facility]-85255 Level 3 Est. Patient 15:20:11 CDT [facility]90753 Level 4 Est. Patient 19:08:12 CDT Alina Castaneda MD [facility]-53972 Level 3 Est. Patient 15:06:39 CDT [facility]24657 Level 4 Est. Patient 17:48:15 CDT Alina Castaneda MD [facility]-01089 Level 3 Est. Patient 14:53:49 CDT Alina Castaneda MD [facility]-52432 Level 3 Est. Patient 09:35:16 CDT Alina Castaneda MD [facility]-19084 Level 3 Est. Patient 12:23:22 CDT Alina Castaneda MD [facility]-26857 Level 3 Est. Patient 16:19:15 CDT Alina Castaneda MD [facility]-12219 Level 3 Est. Patient 21:39:56 SYSTEM SUPPORT ANALYST Alina Castaneda MD [facility]-49218 Level 4 Est. Patient 14:12:56 SYSTEM SUPPORT ANALYST Alina Castaneda MD [facility]-19872 Level 2 Est. Patient 15:34:57 SYSTEM SUPPORT ANALYST Alina Castaneda MD [facility]-56135 Level 3 Est. Patient 12:17:04 SYSTEM SUPPORT ANALYST Alina Castaneda MD [facility]-09573 Level 3 Est. Patient 09:18:18 SYSTEM SUPPORT ANALYST Marvel Charles [facility]-64008 Level 2 Est. Patient 21:50:24 CDT Alina Castaneda MD [facility]-67321 Level 3 Est. Patient 09:17:28 CDT Marvel Charles [facility]-60256 Level 4 Est. Patient 18:54:02 CDT Alina Castaneda MD [facility]-92072 Level 3 Est. Patient 10:47:10 CDT Alina Castaneda MD [facility]-83809 Level 3 Est. Patient 09:22:20 CDT Marvel Charles [facility]-58876 Level 3 Est. Patient 16:39:43 CDT Marvel Charles [facility]-62352 Level 3 Est. Patient 16:05:16 CDT Alina Castaneda MD [facility]-30656 Level 3 Est. Patient 00:29:15 CDT Alina Castaneda MD [facility] CPT-28958 Level 3 Est. Patient 10:49:[address] [facility]375 Level 3 Est. Patient 21:30:19 SYSTEM SUPPORT ANALYST Alina Castaneda MD [facility] CPT-29300 Level 4 Est. Patient 17:04:11 SYSTEM SUPPORT ANALYST [facility] CPT-81128 Level 3 Est. Patient 15:34:11 SYSTEM SUPPORT ANALYST [facility] CPT-10167 Level 2 Est. Patient 12:51:58 SYSTEM SUPPORT ANALYST Alina Castaneda MD [facility] CPT-92294 Level 3 Est. Patient 13:20:01 SYSTEM SUPPORT ANALYST Alina Castaneda MD [facility] CPT-93009 Level 3 Est. Patient 09:23:35 CDT Alina Castaneda MD [facility] Procedures Code Procedure Name Date Entry Date Standard Description CPT-37916 Bladder Scan 12:36:44 CDT CPT-33964 Bladder Scan 21:54:06 CDT CPT-G0008 Administration of Influenza Virus Vaccine 13:05:26 CDT CPT-89594 Fluzone Quadrivalent Intramuscular Suspension 0.5 ML 13: 05:26 CDT CPT-20664 Administration single or combination vaccine inc oral 11 :49:51 CDT CPT-32699 Pneumovax 11:49:51 CDT CPT-40334 Ribs unilateral 2V 12:37:22 SYSTEM SUPPORT ANALYST CPT-13117 Chest 2V Frontal and Lat 17:15:26 CDT CPT-23405 Abx/Therapy Injection 18:54:02 CDT CPT-J0696 Rocephin 1000 mg (Ceftriaxone) 16:00:32 CDT CPT-92538 Chest 2V Frontal and Lat 15:26:45 CDT CPT-84301 Chest 2V Frontal and Lat 10:23:27 CDT CPT-61517 Venipuncture Draw Fee 10:11:00 CDT CPT-72509 Administration single or combination vaccine inc oral 11 :56:38 CDT CPT-13400 Influenza split virus > age 3 11:56:38 CDT CPT-08048 Venipuncture Draw Fee 08:49:54 SYSTEM SUPPORT ANALYST CPT-30208 EKG Trac and Interp 17:54:19 SYSTEM SUPPORT ANALYST
--- OUTSIDE RECORDS SUMMARY | 2018-07-02 13:50 | XMS REPORT | Clinical Summary ---
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 Benign paroxysmal positional vertigo High-risk sexual behavior [...] 10u lunch and supper INSULIN LISPRO (HUMAN) 20654141228 Active Marvel Araceli MARROQUIN Active LATUDA 120 MG ORAL TABS 1 pill by mouth nightly LURASIDONE HCL 93450468028 Active Alina Castaneda MD PhD Active COLACE 100 MG CAPS 1 pill by mouth twice daily, for constipation DOCUSATE SODIUM 77286612475 Active Alina Castaneda MD PhD Active TRUETEST TEST STRP check blood sugars 3x/day GLUCOSE BLOOD 81102207244 Active Malnivia 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 HEAD BANQUET WAITRESS Active ACCU-CHEK ROSA UZMA Use device to check blood sugars BLOOD GLUCOSE MONITORING SUPPL 19637877708 No Longer Active Marvel 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 HEAD BANQUET WAITRESS Active ACCU-CHEK ROSA INVITR STRP use strips with device to check blood sugars 3 times daily GLUCOSE BLOOD 28859477067 No Longer Active Brooksnivia Araceli MENDOZAP Active VERAPAMIL HCL ER 180 MG ORAL CR-TABS 1 pill by mouth twice daily, for migraine prevention VERAPAMIL HCL 13193534065 Active Alina Castaneda MD PhD Active CYCLOBENZAPRINE HCL 10 MG TABS 1 tablet by mouth three times daily, scheduled CYCLOBENZAPRINE HCL 27239242416 No Longer Active Alina Castaneda MD PhD Active HUMALOG 100 UNIT/ML SOLN Take 20 units with breakfast, 10u with lunch and suppetr. INSULIN LISPRO (HUMAN) 25395634892 No Longer Active Alina Castaneda MD PhD Active TRUETEST TEST STRP check sugars 4x/day GLUCOSE BLOOD 10180005775 No Longer Active Alina Castaneda MD PhD Active MORPHINE SULFATE 30 MG TABS 1 pill by mouth twice daily, for pain MORPHINE SULFATE 02820289987 Active Alina Castaneda MD PhD Active ACYCLOVIR 400 MG ORAL TABS 1 pill three times daily x 5 days, for cold sore outbreak ACYCLOVIR 68169613562 No Longer Active Alina Castaneda MD PhD Active PENICILLIN V POTASSIUM 500 MG TABS 1 pill by mouth three times daily PENICILLIN V POTASSIUM 38034785011 No Longer Active Alina Castaneda MD PhD Active UROXATRAL 10 MG [id number]-POO Take 1 tablet by mouth daily ALFUZOSIN HCL 06842666032 No Longer Active Alina Castaneda MD PhD Active THIOTHIXENE 5 MG CAPS by mouth twice a day THIOTHIXENE 29419489047 No Longer Active Alina Castaneda MD PhD Active ZYPREXA 7.5 MG TABS 1 at HS OLANZAPINE 05596844821 No Longer Active Alina Castaneda MD PhD Active LEVEMIR 100 UNIT/ML SOLN Take 70 u at 7-8pm INSULIN DETEMIR 97382687231 Active Maliheh Ziglari HEAD BANQUET WAITRESS Active BD INSULIN SYRINGE 28G X 1/2" 1 ML MISC 1 four times per day INSULIN SYRINGE-NEEDLE U-100 55891560678 Active Mallashondaeh Ziglari HEAD BANQUET WAITRESS Active TOLTERODINE TARTRATE 2 MG TABS 1 pill twice daily, for bladder TOLTERODINE TARTRATE 74020735400 Active Alian Castaneda MD PhD Active DETROL LA 4 MG PL60A-GOL Take 1 tablet by mouth daily TOLTERODINE TARTRATE 76355108001 No Longer Active Alina Castaneda MD PhD Active HYDROCODONE-ACETAMINOPHEN 5-325 MG TABS 2 tabs by mouth three times daily as needed for pain HYDROCODONE-ACETAMINOPHEN 68645342290 Active Alina Castaneda MD PhD Active TERESE CONTOUR TEST STRP monitor blood sugars 3x/day GLUCOSE BLOOD 98933106180 No Longer Active Alina Castaneda MD PhD Active EQL TRUETEST TEST STRP Test blood sugar TID GLUCOSE BLOOD 63026565565 No Longer Active Alina Castaneda MD PhD Active FLUTICASONE PROPIONATE 50 MCG/ACT SUSP 2 sprays each nostril qDay x 30 days FLUTICASONE PROPIONATE 34162992178 No Longer Active Alina Castaneda MD PhD Active IBUPROFEN 200 MG TABS 1 Q 6 hr. PRN IBUPROFEN 01771107142 No Longer Active Alina Castaneda MD PhD Active NIACIN ER 500 MG CR-TABS 4 qHS (for triglycerides) NIACIN 27231502102 No Longer Active Alina Castaneda MD PhD Active ALFUZOSIN HCL ER 10 MG [id number] 1 tablet daily ALFUZOSIN HCL 62385256947 Active Vanessa Hickey MD Active CLONAZEPAM 1 MG TABS 1 pill by mouth three times daily CLONAZEPAM 95915616722 Active Alina Castaneda MD PhD Active LOVAZA 1 GM CAPS 4 daily (for triglycerides) [id number] ETHYL ESTERS 97059383114 Active Alina Castaneda MD PhD Active SAPHRIS 5 MG SUBL by mouth twice a day ASENAPINE MALEATE 41412609844 No Longer Active Marvel MARROQUIN Active ACETAMINOPHEN 500 MG TABS 2 Q 6 hr. PRN ACETAMINOPHEN 07326768334 No Longer Active Marvel MARROQUIN Active ORPHENADRINE CITRATE ER 100 MG [id number]-VKG 1 every 12 hr. as needed ORPHENADRINE CITRATE 99659236212 No Longer Active Alina Castaneda MD PhD Active NIACIN CR 500 MG CR-TABS 2 qHS NIACIN 84582802557 No Longer Active Alina Castaneda MD PhD Active AMOXICILLIN 500 MG CAPS 2 po BID x 10 days AMOXICILLIN 03993944242 No Longer Active Alina Castaneda MD PhD Active HYDROCODONE-ACETAMINOPHEN 7.5-325 MG TABS 1 four times a day as needed for pain HYDROCODONE-ACETAMINOPHEN 05046905357 No Longer Active Alina Castaneda MD PhD Active METFORMIN HCL ER 500 MG KP38H-BBZ Take three tablets by mouth everyday METFORMIN HCL 51568703978 Active Marvel Mackenzieglestela HEAD BANQUET WAITRESS Active DOXEPIN HCL 10 MG CAPS Take 1 tablet by mouth daily DOXEPIN HCL 36000026239 No Longer Active Salina Han [facility] Active NAVANE 10 MG CAPS 1/2 tablet twice a day THIOTHIXENE No Longer Active Salina Han A Active CYCLOBENZAPRINE HCL 10 MG TABS 1/2 tablet by mouth every 8 hours as needed for muscle spasms CYCLOBENZAPRINE HCL 92439280578 No Longer Active Alina Castaneda MD PhD Active BACTROBAN 2 % CREAM apply to ear and nose twice daily MUPIROCIN CALCIUM 93810400699 No Longer Active Alina Castaneda MD PhD Active HYDROCODONE-ACETAMINOPHEN 5-325 MG TABS take one tablet by mouth every four hours as needed for pain HYDROCODONE-ACETAMINOPHEN 91163656875 No Longer Active Alina Castaneda MD PhD Active ZOLPIDEM TARTRATE 10 MG TABS take at bedtime ZOLPIDEM TARTRATE 17191035754 Active Alina Castaneda MD PhD Active ZYPREXA 5 MG TABS take one tablet by mouth every evening OLANZAPINE 20869467928 No Longer Active Alina Castaneda MD PhD Active ALBUTEROL SULFATE 0.083 % NEBU SOLN one vial per nebulizer TID and PRN cough/ soa ALBUTEROL SULFATE 84657533191 No Longer Active Alina Castaneda MD PhD Active GUAIFENESIN 600 MG GB63W-CQP 1 tablet by mouth twice daily if needed for cough GUAIFENESIN 88878856202 No Longer Active Marvel Charles [facility] Active AZITHROMYCIN 500 MG SOLR 1 po q day AZITHROMYCIN 44882210711 No Longer Active Alina Castaneda MD PhD Active METOPROLOL SUCCINATE 100 MG PA73J-PER 1 by mouth daily for blood pressure METOPROLOL SUCCINATE 13181446967 Active Alina Castaneda MD PhD Active PROMETHAZINE-CODEINE 6.25-10 MG/5ML SYRP 1 tsp po q 6 hours prn cough PROMETHAZINE-CODEINE 10627021187 No Longer Active Alina Castaneda MD PhD Active CEFDINIR 300 MG CAPS by mouth twice a day CEFDINIR 29476455528 No Longer Active Alina Castaneda MD PhD Active METFORMIN HCL 500 MG ZZ38Y-PCP Take 3 tablets by mouth everyday METFORMIN HCL 00728711924 No Longer Active Alina Castaneda MD PhD Active LEVEMIR 100 UNIT/ML SOLN 90 units SQ qHS INSULIN DETEMIR 17686288216 No Longer Active Marvel MARROQUIN Active TOPROL XL 100 MG [id number]-PNC 1 @ HS METOPROLOL SUCCINATE 44917989090 No Longer Active Marvel MARROQUIN Active ALLOPURINOL 300 MG TABS Take one by mouth daily ALLOPURINOL 53693211459 Active Alina Castaneda MD PhD Active ZYPREXA 10 MG TABS Take one by mouth daily OLANZAPINE 22269465002 No Longer Active Alina Castaneda MD PhD Active NOVOLOG 100 UNIT/ML SOLN 40 units with every meal INSULIN ASPART 76360751484 No Longer Active Alina Castaneda MD PhD Active VERAPAMIL HCL CR 120 MG TAB CR 1 qPM VERAPAMIL HCL 30939019515 No Longer Active Salina Han A Active ZYPREXA 15 MG TABS Take 1 tablet by mouth daily OLANZAPINE 03290132371 No Longer Active Marvel MARROQUIN Active LISINOPRIL 20 MG TABS 1 BID LISINOPRIL 55232988643 Active Alina Castaneda MD PhD Active ALBUTEROL SULFATE (2.5 MG/3ML) 0.083% NEBU 1 neb tid and prn cough ALBUTEROL SULFATE 06631648383 No Longer Active Alina Castaneda MD PhD Active FLUVOXAMINE MALEATE 100 MG TABS Take one (1) tablet by mouth am, 1/2 at noon, 1 pm FLUVOXAMINE MALEATE 27954017263 Active Alina Castaneda MD PhD Active TRAVATAN Z 0.004 % SOLN 1 gtt each eye daily TRAVOPROST 73193451057 Active CRYSTAL Suarez Active LANTUS 100 UNIT/ML SOLN 60 units sq q hs INSULIN GLARGINE 80738983140 No Longer Active CRYSTAL Suarez Active ALBUTEROL SULFATE (2.5 MG/3ML) 0.083% NEBU 1 neb tid and prn cough ALBUTEROL SULFATE (2.5 MG/3ML) 0.083% NEBU 439563 ALBUTEROL SULFATE Inactive ZYPREXA 15 MG TABS Take 1 tablet by mouth daily ZYPREXA 15 MG TABS 921820 OLANZAPINE Inactive VERAPAMIL HCL CR 120 MG TAB CR 1 qPM VERAPAMIL HCL CR 120 MG TAB CR VERAPAMIL HCL Inactive ZYPREXA 10 MG TABS Take one by mouth daily ZYPREXA 10 MG TABS 844995 OLANZAPINE Inactive TOPROL XL 100 MG [id number] 1 @ HS TOPROL XL 100 MG UQ98K-JEM METOPROLOL SUCCINATE Inactive LEVEMIR 100 UNIT/ML SOLN 90 units SQ qHS LEVEMIR 100 UNIT/ML SOLN INSULIN DETEMIR Inactive PROMETHAZINE-CODEINE 6.25-10 MG/5ML SYRP 1 tsp po q 6 hours prn cough PROMETHAZINE-CODEINE 6.25-10 MG/5ML SYRP 586246 PROMETHAZINE- CODEINE Inactive GUAIFENESIN 600 MG TS91I-VOX 1 tablet by mouth twice daily if needed for cough GUAIFENESIN 600 MG CR21O-PLM GUAIFENESIN Inactive ALBUTEROL SULFATE 0.083 % NEBU SOLN one vial per nebulizer TID and PRN cough/ soa ALBUTEROL SULFATE 0.083 % NEBU SOLN 069854 ALBUTEROL SULFATE Inactive ZYPREXA 5 MG TABS take one tablet by mouth every evening ZYPREXA 5 MG TABS 279294 OLANZAPINE Inactive HYDROCODONE-ACETAMINOPHEN 5-325 MG TABS take one tablet by mouth every four hours as needed for pain HYDROCODONE-ACETAMINOPHEN 5-325 MG TABS 216191 HYDROCODONE-ACETAMINOPHEN Inactive BACTROBAN 2 % CREAM apply to ear and nose twice daily BACTROBAN 2 % CREAM 790665 MUPIROCIN CALCIUM Inactive CYCLOBENZAPRINE HCL 10 MG TABS 1/2 tablet by mouth every 8 hours as needed for muscle spasms CYCLOBENZAPRINE HCL 10 MG TABS 231282 CYCLOBENZAPRINE HCL Inactive NAVANE 10 MG CAPS 1/2 tablet twice a day NAVANE 10 MG CAPS THIOTHIXENE Inactive DOXEPIN HCL 10 MG CAPS Take 1 tablet by mouth daily DOXEPIN HCL 10 MG CAPS 1617603 DOXEPIN HCL Inactive HYDROCODONE-ACETAMINOPHEN 7.5-325 MG TABS 1 four times a day as needed for pain HYDROCODONE-ACETAMINOPHEN 7.5-325 MG TABS 700104 HYDROCODONE-ACETAMINOPHEN Inactive NIACIN CR 500 MG CR-TABS 2 qHS NIACIN CR 500 MG CR- TABS NIACIN Inactive ORPHENADRINE CITRATE ER 100 MG AZ01K-ESR 1 every 12 hr. as needed ORPHENADRINE CITRATE ER 100 MG YQ66C-FUP ORPHENADRINE CITRATE Inactive ACETAMINOPHEN 500 MG TABS 2 Q 6 hr. PRN ACETAMINOPHEN 500 MG TABS 226629 ACETAMINOPHEN Inactive SAPHRIS 5 MG SUBL by mouth twice a day SAPHRIS 5 MG SUBL ASENAPINE MALEATE Inactive NIACIN ER 500 MG CR-TABS 4 qHS (for triglycerides) NIACIN ER 500 MG CR-TABS NIACIN Inactive IBUPROFEN 200 MG TABS 1 Q 6 hr. PRN IBUPROFEN 200 MG TABS 620545 IBUPROFEN Inactive FLUTICASONE PROPIONATE 50 MCG/ACT SUSP 2 sprays each nostril qDay x 30 days FLUTICASONE PROPIONATE 50 MCG/ACT SUSP 634530 FLUTICASONE PROPIONATE Inactive EQL TRUETEST TEST STRP Test blood sugar TID EQL TRUETEST TEST STRP GLUCOSE BLOOD Inactive TERESE CONTOUR TEST STRP monitor blood sugars 3x/day TERESE CONTOUR TEST STRP GLUCOSE BLOOD Inactive DETROL LA 4 MG [id number]-SXT Take 1 tablet by mouth daily DETROL LA 4 MG [id number]-IKY TOLTERODINE TARTRATE Inactive ZYPREXA 7.5 MG TABS 1 at HS ZYPREXA 7.5 MG TABS 518287 OLANZAPINE Inactive THIOTHIXENE 5 MG CAPS by mouth twice a day THIOTHIXENE 5 MG CAPS 674220 THIOTHIXENE Inactive UROXATRAL 10 MG IT89K-GBW Take 1 tablet by mouth daily UROXATRAL 10 MG JY88W-UTS ALFUZOSIN HCL Inactive ACYCLOVIR 400 MG ORAL TABS 1 pill three times daily x 5 days, for cold sore outbreak ACYCLOVIR 400 MG ORAL TABS 432423 ACYCLOVIR Inactive TRUETEST TEST STRP check sugars 4x/day TRUETEST TEST STRP GLUCOSE BLOOD Inactive HUMALOG 100 UNIT/ML SOLN Take 20 units with breakfast, 10u with lunch and suppetr. HUMALOG 100 UNIT/ML SOLN INSULIN LISPRO ( HUMAN) Inactive CYCLOBENZAPRINE HCL 10 MG TABS 1 tablet by mouth three times daily, scheduled CYCLOBENZAPRINE HCL 10 MG TABS 235684 CYCLOBENZAPRINE HCL Inactive ACCU-CHEK ROSA INVITR STRP use strips with device to check blood sugars 3 times daily ACCU-CHEK ROSA INVITR STRP GLUCOSE BLOOD Inactive ACCU-CHEK ROSA UZMA Use device to check blood sugars ACCU-CHEK ROSA UZMA BLOOD GLUCOSE MONITORING SUPPL Inactive CEFDINIR 300 MG CAPS by mouth twice a day CEFDINIR 300 MG CAPS 527339 CEFDINIR Inactive AZITHROMYCIN 500 MG SOLR 1 po q day AZITHROMYCIN 500 MG SOLR 465698 AZITHROMYCIN Inactive AMOXICILLIN 500 MG CAPS 2 po BID x 10 days AMOXICILLIN 500 MG CAPS 648948 AMOXICILLIN Inactive PENICILLIN V POTASSIUM 500 MG TABS 1 pill by mouth three times daily PENICILLIN V POTASSIUM 500 MG TABS 503733 PENICILLIN V POTASSIUM Inactive Immunizations Vaccine Administration [...] Fluvirin, Fluarix, Agriflu(>=18 yo)) Fluzone (>3 yrs.) [ZPA573] Influenza, seasonal, injectable pneumococcal immunization administered Pneumovax [...] HGBA1C - Chemistry sodium, serum 131 mmol/L 200-083 1703/12/30 potassium, serum 5.0 mmol/L 3.5-5.2 chloride, serum 95 mmol/L 98-107 carbon dioxide, venous blood 26.7 mmol/L 21.0-32.0 blood glucose 112 mg/dL 65-110 calcium, serum 9.2 mg/dL 8.5-10.1 urea nitrogen, blood 12 mg/dL 7-18 creatinine, serum 1.10 mg/dL 0.60-1.30 hemoglobin A1C, blood, as % of total hemoglobin 5.8 % 4.3-6.0 Lab Report: Basic Metabolic Panel, HGBA1C, MICROALBUMIN - Chemistry sodium, serum 137 mmol/L 120-752 1017/05/19 potassium, serum 5.2 mmol/L 3.5-5.2 chloride, serum [...] microalbumin, urine 10 0-19 Lab Report: Chlamydia/GC APTIMA/86903, HIV-1/2 Agn/Dominga/68462, RPR (DX) W ... - Chemistry hepatitis B surface antigen NON-REACTIVE NON-REACTIVE Lab Report: Chlamydia/GC APTIMA/11038, HIV-1/2 Agn/Dominga/88534, RPR (DX) W ... - Lab chlamydia DNA probe NOT DETECTED NOT DETECTED Lab Report: Chlamydia/GC APTIMA/05296, HIV-1/2 Agn/Dominga/30830, RPR (DX) W ... - Microbiology Neisseria gonorrhoeae DNA probe NOT DETECTED NOT DETECTED Lab Report: Chlamydia/GC APTIMA/02992, HIV-1/2 Agn/Dominga/00793, RPR (DX) W ... - Serology rapid plasma reagin antibody titer NON-REACTIVE NON-REACTIVE Lab Report: Comp. Metabolic Panel - Chemistry sodium, serum 127 mmol/L 721-705 7393/10/27 potassium, serum 4.1 mmol/L 3.5-5.2 chloride, serum [...] CBC - Chemistry cholesterol, serum 131 mg/dL 900-872 2390/06/03 triglyceride, serum, fasting 383 mg/dL 30-200 HDL [...] mg/dL Encounters Code Encounter Date Provider Facility CPT-23765 Level 3 Est. Patient 09:34:56 CDT Alina Castaneda MD PhD [facility] CPT-76348 Level 3 Est. Patient 21:40:19 CDT Mima Erazo APRN [facility] CPT-57649 Level 3 Est. Patient 09:26:40 CDT Marvel MARROQUIN [facility] CPT-29673 Level 3 Est. Patient 12:36:43 CDT Vanessa Hickey MD [facility] CPT-37292 Level 3 Est. Patient 12:57:49 CDT Vanessa Hickey MD [facility] CPT-76122 Level 3 Est. Patient 00:28:25 CDT Alina Castaneda MD [facility] CPT-86269 Level 2 Est. Patient 12:52:14 CDT Alina Castaneda MD [facility] CPT-41699 Level 3 Est. Patient 11:51:18 [employer]ZEN [employer]OR Alina Castaneda MD [facility] CPT-35463 Level 3 Est. Patient 10:09:22 [employer] SELECTOR Alina Castaneda MD [facility] CPT-96769 Level 3 Est. Patient 14:36:26 [employer]OR Marvel Gurdeepajayestela [facility]-33859 Level 3 Est. Patient 13:34:47 [employer] SELECTOR Alina Castaneda MD [facility]11167 Level 3 Est. Patient 19:52:08 [employer]OR Alina Castaneda MD [facility]74029 Level 3 Est. Patient 10:01:51 [employer]OR Marvel Charles Formerly named [facility]89115 Level 3 Est. Patient 21:54:06 CDT Vanessa Hickey MD [facility]21393 Level 3 Est. Patient 08:54:46 CDT Alina Castandea MD [facility]25017 Level 3 Est. Patient 09:32:11 CDT Marvel Gurdeepajayestela Formerly named [facility]05013 Level 3 Est. Patient 12:02:49 CDT Alina Castaneda MD [facility]54323 Level 3 Est. Patient 19:17:33 CDT Alina Castaneda MD [facility]61301 Level 3 Est. Patient 13:19:10 CDT Brooksjohn Charles [facility]-32495 Level 3 Est. Patient 08:20:05 CDT Alina Castaneda MD [facility]18400 Level 3 Est. Patient 15:17:18 CDT Alina Castaneda MD [facility]93756 Level 3 Est. Patient 14:25:36 [employer] Marvel Araceli Formerly named [facility]26850 Level 3 Est. Patient 10:09:15 [employer] Marvel Araceli [facility] named [facility]87638 Level 3 Est. Patient 21:28:43 CDT Alina Castaneda MD [facility]-62550 Level 3 Est. Patient 15:20:11 CDT Marvel Charles [facility]-06697 Level 4 Est. Patient 19:08:12 CDT Alina Castaneda MD [facility]-41408 Level 3 Est. Patient 15:06:39 CDT Marvel Charles [facility]-27396 Level 4 Est. Patient 17:48:15 CDT Alina Castaneda MD [facility]-20972 Level 3 Est. Patient 14:53:49 CDT Alina Castaneda MD [facility]-12703 Level 3 Est. Patient 09:35:16 CDT Alina Castaneda MD [facility]-45090 Level 3 Est. Patient 12:23:22 CDT Alina Castaneda MD [facility]-95453 Level 3 Est. Patient 16:19:15 CDT Alina Castaneda MD [facility]-54160 Level 3 Est. Patient 21:39:56 [employer]OR Alina Castaneda MD [facility]-14336 Level 4 Est. Patient 14:12:56 [employer]OR Alina Castaneda MD [facility]-79608 Level 2 Est. Patient 15:34:57 [employer]OR Alina Castaneda MD [facility]-86613 Level 3 Est. Patient 12:17:04 [employer]OR Alina Castaneda MD [facility]-90998 Level 3 Est. Patient 09:18:18 [employer] Marvel Charles [facility]-08943 Level 2 Est. Patient 21:50:24 CDT Alina Castaneda MD [facility]-90507 Level 3 Est. Patient 09:17:28 CDT Marvel Charles [facility]-66916 Level 4 Est. Patient 18:54:02 CDT Alina Castaneda MD [facility]81535 Level 3 Est. Patient 10:47:10 CDT Alina Castaneda MD [facility]46746 Level 3 Est. Patient 09:22:20 CDT Marvel Charles [facility]-38293 Level 3 Est. Patient 16:39:43 CDT Brooksnivia Charles [facility]-30653 Level 3 Est. Patient 16:05:16 CDT Alina Castaneda MD [facility]45940 Level 3 Est. Patient 00:29:15 CDT Alina Castaneda MD [facility]47317 Level 3 Est. Patient 10:49:22 [employer] Marvel Charles [facility]-00273 Level 3 Est. Patient 21:30:19 [employer]OR Alina Castaneda MD [facility]-88809 Level 4 Est. Patient 17:04:11 [employer] Marvel Charles [facility]-05243 Level 3 Est. Patient 15:34:11 [employer] Marvel Charles [facility]-31594 Level 2 Est. Patient 12:51:58 [employer] Alina Castaneda MD [facility]10436 Level 3 Est. Patient 13:20:01 [employer] Alina Castaneda MD [facility]58896 Level 3 Est. Patient 09:23:35 CDT Alina Castaneda MD PhD [facility] Procedures Code Procedure Name Date Entry Date Standard Description CPT-84061 Bladder Scan 12:36:44 CDT CPT-98712 Bladder Scan 21:54:06 CDT CPT-G0008 Administration of Influenza Virus Vaccine 13:05:26 CDT CPT-53279 Fluzone Quadrivalent Intramuscular Suspension 0.5 ML 13: 05:26 CDT CPT-19471 Administration single or combination vaccine inc oral 11 :49:51 CDT CPT-63281 Pneumovax 11:49:51 CDT CPT-56166 Ribs unilateral 2V 12:37:22 [employer] CPT-58204 Chest 2V Frontal and Lat 17:15:26 CDT CPT-65201 Abx/Therapy Injection 18:54:02 CDT CPT-J0696 Rocephin 1000 mg (Ceftriaxone) 16:00:32 CDT CPT-11552 Chest 2V Frontal and Lat 15:26:45 CDT CPT-33378 Chest 2V Frontal and Lat 10:23:27 CDT CPT-25135 Venipuncture Draw Fee 10:11:00 CDT CPT-05463 Administration single or combination vaccine inc oral 11 :56:38 CDT CPT-12697 Influenza split virus > age 3 11:56:38 CDT CPT-32640 Venipuncture Draw Fee 08:49:54 [employer] CPT-02230 EKG Trac and Interp 17:54:19 [employer]
--- OUTSIDE RECORDS SUMMARY | 2018-07-02 13:51 | XMS REPORT | Clinical Summary ---
Author Author Admin, TERELL Organization [facility] Address Unknown Phone Unavailable Allergies, 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 Erazo SAAS ARCHITECT Benign paroxysmal positional vertigo Vertigo, benign paroxysmal position 386.11 Inactive Mima Erazo SAAS ARCHITECT Benign paroxysmal positional vertigo High-risk sexual behavior V69.2 Active Alina Castaneda MD PhD High-risk sexual behavior Erectile dysfunction 302.72 Active Alina Castaneda MD PhD Psychosexual dysfunction with inhibited sexual excitement Constipation 564.00 Active Alina Castaneda MD PhD Constipation, unspecified Skin lesion 709.9 Active Alina Castaneda MD PhD Unspecified disorder of skin and subcutaneous tissue Malaise and fatigue 780.79 Active Cherelle Speaks SAAS ARCHITECT Other malaise and fatigue Diarrhea 787.91 Active Cherelle Speaks SAAS ARCHITECT Diarrhea PHARYNGITIS 462 Active Cherelle Speaks SAAS ARCHITECT Acute pharyngitis Colitis 558.9 Active Mima Erazo SAAS ARCHITECT Other and unspecified noninfectious gastroenteritis and colitis WOUND, OPEN, NOSE ICD-873.20 Inactive Alina Castaneda MD PhD DIABETES, TYPE 2 ICD-250.00 Inactive Alina Castaneda MD PhD HYPERTENSION ICD-401.9 Inactive Alina Castaneda MD PhD URI ICD-465.9 Inactive Alina Castaneda MD PhD CHEST PAIN ICD-786.50 Inactive Alina Casatneda MD PhD FH STROKE ICD-V17.1 Inactive Marvel Charles CASTING CLEANER FATIGUE ICD-780.79 Inactive Alina Castaneda MD PhD [...] mouth twice daily, for constipation DOCUSATE SODIUM 38918943292 No Longer Active Mima Erazo APRN Active FLONASE ALLERGY RELIEF 50 MCG/ACT NASAL SUSP One spray each nostril BID x 1 week then daily FLUTICASONE PROPIONATE 00558882125 Active Mimacecily Erazo APRN Active BD PEN NEEDLE MINI U/F 31G X 5 MM MISC 4 a day INSULIN PEN NEEDLE 60538629055 Active Mallashondaeh Ziglari CASTING CLEANER Active AMITIZA 24 MCG ORAL CAPS Take one capsule BID for constipation LUBIPROSTONE 61540336745 Active Mimacecily Erazo APRN Active LEVEMIR FLEXTOUCH 100 UNIT/ML SC SOPN 75 units SQ each evening, for diabetes INSULIN DETEMIR 65442811943 Active Mima Erazo APRN Active TRUEPLUS LANCETS 30G MISC 3 a day LANCETS 44272677551 Active Mallashondaeh Ziglari CASTING CLEANER Active TOLTERODINE TARTRATE 2 MG TABS 1 pill twice daily, for bladder TOLTERODINE TARTRATE 61464199837 No Longer Active Vanessa Hickey MD Active AMITIZA 24 MCG ORAL CAPS Take one capsule BID for constipation. LUBIPROSTONE 42250148893 No Longer Active Vanessa Hickey MD Active LOMOTIL 2.5-0.025 MG ORAL TABS take 1-2 tabs PO after each stool, no more than 8 in 24 hours DIPHENOXYLATE-ATROPINE 99127199511 Active Grace Nascimento RMA Active FLUVOXAMINE MALEATE 100 MG ORAL TABS take one tab every AM et HS, and take 1/ 2 tab at noon FLUVOXAMINE MALEATE 16189725005 Active Gracekailee Nascimento RMA Active METOPROLOL SUCCINATE 100 MG [id number] 1 by mouth daily for blood pressure METOPROLOL SUCCINATE 00366078612 No Longer Active Grace Nascimento RMA Active METFORMIN HCL ER 500 MG [id number] Take three tablets by mouth everyday METFORMIN HCL 46263455608 No Longer Active Grace Nascimento RMA Active LOVAZA 1 GM CAPS 4 daily (for triglycerides) OMEGA-3- ACID ETHYL ESTERS 81174005870 No Longer Active Grace Nascimento RMA Active TRAZODONE HCL 100 MG ORAL TABS 1 tab by mouth for sleep TRAZODONE HCL 76350739977 No Longer Active Grace Nascimento RMA Active NOVOFINE 32G X 6 MM MISC use one four times per day INSULIN PEN NEEDLE 15224614655 No Longer Active Grace Nascimento RMA Active BACTROBAN 2 % CREAM Apply to affected area BID for up to 10 days MUPIROCIN CALCIUM 91378899807 No Longer Active Grcae Nascimento RMA Active ZOFRAN 4 MG TABS 1 po q4hr PRN Nausea ONDANSETRON HCL 77256759746 Active Salina Han RMA Active KEFLEX 500 MG CAP 1 po BID x 7 days CEPHALEXIN 73372986719 No Longer Active Cherelle Avila APRN Active FLUVOXAMINE MALEATE 100 MG TABS Take one (1) tablet by mouth am, 1/2 at noon FLUVOXAMINE MALEATE 11493752004 No Longer Active Mima Erazo SAAS ARCHITECT Active CORICIDIN HBP CONGESTION/COUGH 10-200 MG ORAL CAPS Take as directed on box as needed for cold/flu symptoms DEXTROMETHORPHAN-GUAIFENESIN 81353163663 Active Cherelle Speaks SAAS ARCHITECT Active OMEGA-3 300 MG ORAL CAPS 4 caps by mouth daily OMEGA-3 FATTY ACIDS 68047761806 Active Mima Erazo SAAS ARCHITECT Active FLUVOXAMINE MALEATE 100 MG ORAL TABS Take 1/2 tab at noon FLUVOXAMINE MALEATE 74752248829 No Longer Active Cherelle Speaks SAAS ARCHITECT Active [facility] LUBRICANT EYE DROPS 0.4-0.3 % OPHTH SOLN POLYETHYL GLYCOL-PROPYL GLYCOL 27214913236 Active Mima Erazo SAAS ARCHITECT Active CLONAZEPAM 1 MG TABS 1/2 pill by mouth three times daily CLONAZEPAM 52900583589 Active Mason Loredo MD Active MIRALAX POWD 17g by mouth daily, for constipation POLYETHYLENE GLYCOL 3350 39818401812 Active Alina Castaneda MD PhD Active HYDROCODONE-ACETAMINOPHEN 5-325 MG TABS 2 tabs by mouth three times daily for pain HYDROCODONE-ACETAMINOPHEN 56652443738 Active Mima Erazo SAAS ARCHITECT Active HUMALOG KWIKPEN 100 UNIT/ML SC SOPN 20 units with breakfast, 10 units with lunch, 10 units with dinner, for diabetes INSULIN LISPRO (HUMAN ) 22181799756 Active Alina Castaneda MD PhD Active LATUDA 120 MG ORAL TABS 1 pill by mouth nightly LURASIDONE HCL 35952037715 Active Alina Castaneda MD PhD Active TRUETEST TEST STRP check blood sugars 3x/day GLUCOSE BLOOD 22001223211 Active Marvel Charles CASTING CLEANER Active ACCU-CHEK ROSA UZMA Use device to check blood sugars BLOOD GLUCOSE MONITORING SUPPL 51313393844 No Longer Active Marvel Charles CASTING CLEANER Active ACCU-CHEK ROSA INVITR STRP use strips with device to check blood sugars 3 times daily GLUCOSE BLOOD 45992730104 No Longer Active Marvel MARROQUIN Active VERAPAMIL HCL ER 180 MG ORAL CR-TABS 1 pill by mouth twice daily, for migraine prevention VERAPAMIL HCL 33063547629 Active CRYSTAL Rodrigues Active CYCLOBENZAPRINE HCL 10 MG TABS 1 tablet by mouth three times daily, scheduled CYCLOBENZAPRINE HCL 02889797940 No Longer Active Alina Castaneda MD PhD Active HUMALOG 100 UNIT/ML SOLN Take 20 units with breakfast, 10u with lunch and suppetr. INSULIN LISPRO (HUMAN) 86158048546 No Longer Active Alina Castaneda MD PhD Active TRUETEST TEST STRP check sugars 4x/day GLUCOSE BLOOD 50199079754 No Longer Active Alina Castaneda MD PhD Active MORPHINE SULFATE 30 MG TABS 1 pill by mouth twice daily, for pain MORPHINE SULFATE 87995945618 Active Mason Loredo MD Active ACYCLOVIR 400 MG ORAL TABS 1 pill three times daily x 5 days, for cold sore outbreak ACYCLOVIR 82148945550 No Longer Active Alina Castaneda MD PhD Active PENICILLIN V POTASSIUM 500 MG TABS 1 pill by mouth three times daily PENICILLIN V POTASSIUM 68775770651 No Longer Active Alina Castaneda MD PhD Active UROXATRAL 10 MG [id number] Take 1 tablet by mouth daily ALFUZOSIN HCL 76863979671 No Longer Active Alina Castaneda MD PhD Active THIOTHIXENE 5 MG CAPS by mouth twice a day THIOTHIXENE 75446627841 No Longer Active Alina Castaneda MD PhD Active ZYPREXA 7.5 MG TABS 1 at HS OLANZAPINE 42397898212 No Longer Active Alina Castaneda MD PhD Active BD INSULIN SYRINGE 28G X 1/2" 1 ML MISC 1 four times per day INSULIN SYRINGE-NEEDLE U-100 83259488555 Active Marvel MARROQUIN Active DETROL LA 4 MG [id number] Take 1 tablet by mouth daily TOLTERODINE TARTRATE 59656499422 No Longer Active Alina Castaneda MD PhD Active TERESE CONTOUR TEST STRP monitor blood sugars 3x/day GLUCOSE BLOOD 78737169275 No Longer Active Alina Castaneda MD PhD Active EQL TRUETEST TEST STRP Test blood sugar TID GLUCOSE BLOOD 73559838949 No Longer Active Alina Castaneda MD PhD Active FLUTICASONE PROPIONATE 50 MCG/ACT SUSP 2 sprays each nostril qDay x 30 days FLUTICASONE PROPIONATE 41719776611 No Longer Active Alina Castaneda MD PhD Active IBUPROFEN 200 MG TABS 1 Q 6 hr. PRN IBUPROFEN 48745235842 No Longer Active Alina Castaneda MD PhD Active NIACIN ER 500 MG CR-TABS 4 qHS (for triglycerides) NIACIN 92420571694 No Longer Active Alina Castaneda MD PhD Active ALFUZOSIN HCL ER 10 MG [id number] 1 tablet daily ALFUZOSIN HCL 58237766542 Active CRYSTAL Rodrigues Active SAPHRIS 5 MG SUBL by mouth twice a day ASENAPINE MALEATE 86286875870 No Longer Active Marvel MARROQUIN Active ACETAMINOPHEN 500 MG TABS 2 Q 6 hr. PRN ACETAMINOPHEN 58162514443 No Longer Active Marvel MARROQUIN Active ORPHENADRINE CITRATE ER 100 MG [id number] 1 every 12 hr. as needed ORPHENADRINE CITRATE 40120937800 No Longer Active Alnia Castaneda MD PhD Active NIACIN CR 500 MG CR-TABS 2 qHS NIACIN 50780705594 No Longer Active Alina Castaneda MD PhD Active AMOXICILLIN 500 MG CAPS 2 po BID x 10 days AMOXICILLIN 58449286835 No Longer Active Alina Castaneda MD PhD Active HYDROCODONE-ACETAMINOPHEN 7.5-325 MG TABS 1 four times a day as needed for pain HYDROCODONE-ACETAMINOPHEN 11577753957 No Longer Active Alina Castaneda MD PhD Active DOXEPIN HCL 10 MG CAPS Take 1 tablet by mouth daily DOXEPIN HCL 33260575385 No Longer Active Salina Han A Active NAVANE 10 MG CAPS 1/2 tablet twice a day THIOTHIXENE No Longer Active Salina Han A Active CYCLOBENZAPRINE HCL 10 MG TABS 1/2 tablet by mouth every 8 hours as needed for muscle spasms CYCLOBENZAPRINE HCL 99300985088 No Longer Active Alina Castaneda MD PhD Active BACTROBAN 2 % CREAM apply to ear and nose twice daily MUPIROCIN CALCIUM 13677642585 No Longer Active Alina Castaneda MD PhD Active HYDROCODONE-ACETAMINOPHEN 5-325 MG TABS take one tablet by mouth every four hours as needed for pain HYDROCODONE-ACETAMINOPHEN 38846191425 No Longer Active Alina Castaneda MD PhD Active ZOLPIDEM TARTRATE 10 MG TABS take at bedtime ZOLPIDEM TARTRATE 30140935676 Active Alina Castaneda MD PhD Active ZYPREXA 5 MG TABS take one tablet by mouth every evening OLANZAPINE 89973644079 No Longer Active Alina Castaneda MD PhD Active ALBUTEROL SULFATE 0.083 % NEBU SOLN one vial per nebulizer TID and PRN cough/ soa ALBUTEROL SULFATE 92035245397 No Longer Active Alina Castaneda MD PhD Active GUAIFENESIN 600 MG [id number] 1 tablet by mouth twice daily if needed for cough GUAIFENESIN 77226707686 No Longer Active Marvel MARROQUIN Active AZITHROMYCIN 500 MG SOLR 1 po q day AZITHROMYCIN 67598317274 No Longer Active Alina Castaneda MD PhD Active PROMETHAZINE-CODEINE 6.25-10 MG/5ML SYRP 1 tsp po q 6 hours prn cough PROMETHAZINE-CODEINE 38255039357 No Longer Active Alina Castaneda MD PhD Active CEFDINIR 300 MG CAPS by mouth twice a day CEFDINIR 28796476978 No Longer Active Alina Castaneda MD PhD Active METFORMIN HCL 500 MG GB26D-TVV Take 3 tablets by mouth everyday METFORMIN HCL 49151775487 No Longer Active Alina Castaneda MD PhD Active LEVEMIR 100 UNIT/ML SOLN 90 units SQ qHS INSULIN DETEMIR 01915603156 No Longer Active Marvel MARROQUIN Active TOPROL XL 100 MG [id number] 1 @ HS METOPROLOL SUCCINATE 57273987879 No Longer Active Marvel MARROQUIN Active ALLOPURINOL 300 MG TABS Take one by mouth daily ALLOPURINOL 13945566860 Active Mima Erazo SAAS ARCHITECT Active ZYPREXA 10 MG TABS Take one by mouth daily OLANZAPINE 90239177906 No Longer Active Alina Castaneda MD PhD Active NOVOLOG 100 UNIT/ML SOLN 40 units with every meal INSULIN ASPART 11079972060 No Longer Active Alina Castaneda MD PhD Active VERAPAMIL HCL CR 120 MG TAB CR 1 qPM VERAPAMIL HCL 64341637793 No Longer Active Salina ROJAS Active ZYPREXA 15 MG TABS Take 1 tablet by mouth daily OLANZAPINE 61049028872 No Longer Active Marvel MARROQUIN Active LISINOPRIL 20 MG TABS 1 BID LISINOPRIL 98952775461 Active Alina Castaneda MD PhD Active ALBUTEROL SULFATE (2.5 MG/3ML) 0.083% NEBU 1 neb tid and prn cough ALBUTEROL SULFATE 94205741806 No Longer Active Alina Castaneda MD PhD Active TRAVATAN Z 0.004 % SOLN 1 gtt each eye daily TRAVOPROST 12579865453 Active CRYSTAL Suarez Active LANTUS 100 UNIT/ML SOLN 60 units sq q hs INSULIN GLARGINE 23145748825 No Longer Active CRYSTAL Suarez Active ALBUTEROL SULFATE (2.5 MG/3ML) 0.083% NEBU 1 neb tid and prn cough ALBUTEROL SULFATE (2.5 MG/3ML) 0.083% NEBU 504333 ALBUTEROL SULFATE Inactive ZYPREXA 15 MG TABS Take 1 tablet by mouth daily ZYPREXA 15 MG TABS 010750 OLANZAPINE Inactive VERAPAMIL HCL CR 120 MG TAB CR 1 qPM VERAPAMIL HCL CR 120 MG TAB CR VERAPAMIL HCL Inactive ZYPREXA 10 MG TABS Take one by mouth daily ZYPREXA 10 MG TABS 019400 OLANZAPINE Inactive TOPROL XL 100 MG [id number] 1 @ HS TOPROL XL 100 MG [id number]-RSW METOPROLOL SUCCINATE Inactive LEVEMIR 100 UNIT/ML SOLN 90 units SQ qHS LEVEMIR 100 UNIT/ML SOLN INSULIN DETEMIR Inactive PROMETHAZINE-CODEINE 6.25-10 MG/5ML SYRP 1 tsp po q 6 hours prn cough PROMETHAZINE-CODEINE 6.25-10 MG/5ML SYRP 931475 PROMETHAZINE- CODEINE Inactive GUAIFENESIN 600 MG [id number]-NCC 1 tablet by mouth twice daily if needed for cough GUAIFENESIN 600 MG [id number] GUAIFENESIN Inactive ALBUTEROL SULFATE 0.083 % NEBU SOLN one vial per nebulizer TID and PRN cough/ soa ALBUTEROL SULFATE 0.083 % NEBU SOLN 397812 ALBUTEROL SULFATE Inactive ZYPREXA 5 MG TABS take one tablet by mouth every evening ZYPREXA 5 MG TABS 979715 OLANZAPINE Inactive HYDROCODONE-ACETAMINOPHEN 5-325 MG TABS take one tablet by mouth every four hours as needed for pain HYDROCODONE-ACETAMINOPHEN 5-325 MG TABS 124461 HYDROCODONE-ACETAMINOPHEN Inactive BACTROBAN 2 % CREAM apply to ear and nose twice daily BACTROBAN 2 % CREAM 669523 MUPIROCIN CALCIUM Inactive CYCLOBENZAPRINE HCL 10 MG TABS 1/2 tablet by mouth every 8 hours as needed for muscle spasms CYCLOBENZAPRINE HCL 10 MG TABS 391818 CYCLOBENZAPRINE HCL Inactive NAVANE 10 MG CAPS 1/2 tablet twice a day NAVANE 10 MG CAPS THIOTHIXENE Inactive DOXEPIN HCL 10 MG CAPS Take 1 tablet by mouth daily DOXEPIN HCL 10 MG CAPS 5973002 DOXEPIN HCL Inactive HYDROCODONE-ACETAMINOPHEN 7.5-325 MG TABS 1 four times a day as needed for pain HYDROCODONE-ACETAMINOPHEN 7.5-325 MG TABS 128619 HYDROCODONE-ACETAMINOPHEN Inactive NIACIN CR 500 MG CR-TABS 2 qHS NIACIN CR 500 MG CR- TABS NIACIN Inactive ORPHENADRINE CITRATE ER 100 MG [id number] 1 every 12 hr. as needed ORPHENADRINE CITRATE ER 100 MG [id number]-TTB ORPHENADRINE CITRATE Inactive ACETAMINOPHEN 500 MG TABS 2 Q 6 hr. PRN ACETAMINOPHEN 500 MG TABS 220705 ACETAMINOPHEN Inactive SAPHRIS 5 MG SUBL by mouth twice a day SAPHRIS 5 MG SUBL ASENAPINE MALEATE Inactive NIACIN ER 500 MG CR-TABS 4 qHS (for triglycerides) NIACIN ER 500 MG CR-TABS NIACIN Inactive IBUPROFEN 200 MG TABS 1 Q 6 hr. PRN IBUPROFEN 200 MG TABS 174598 IBUPROFEN Inactive FLUTICASONE PROPIONATE 50 MCG/ACT SUSP 2 sprays each nostril qDay x 30 days FLUTICASONE PROPIONATE 50 MCG/ACT SUSP 672270 FLUTICASONE PROPIONATE Inactive EQL TRUETEST TEST STRP Test blood sugar TID EQL TRUETEST TEST STRP GLUCOSE BLOOD Inactive TERESE CONTOUR TEST STRP monitor blood sugars 3x/day TERESE CONTOUR TEST STRP GLUCOSE BLOOD Inactive DETROL LA 4 MG [id number] Take 1 tablet by mouth daily DETROL LA 4 MG [id number]-ZSP TOLTERODINE TARTRATE Inactive ZYPREXA 7.5 MG TABS 1 at HS ZYPREXA 7.5 MG TABS 380637 OLANZAPINE Inactive THIOTHIXENE 5 MG CAPS by mouth twice a day THIOTHIXENE 5 MG CAPS 034162 THIOTHIXENE Inactive UROXATRAL 10 MG OZ06O-DRU Take 1 tablet by mouth daily UROXATRAL 10 MG [id number]-JUK ALFUZOSIN HCL Inactive ACYCLOVIR 400 MG ORAL TABS 1 pill three times daily x 5 days, for cold sore outbreak ACYCLOVIR 400 MG ORAL TABS 635114 ACYCLOVIR Inactive TRUETEST TEST STRP check sugars 4x/day TRUETEST TEST STRP GLUCOSE BLOOD Inactive HUMALOG 100 UNIT/ML SOLN Take 20 units with breakfast, 10u with lunch and suppetr. HUMALOG 100 UNIT/ML SOLN INSULIN LISPRO ( HUMAN) Inactive CYCLOBENZAPRINE HCL 10 MG TABS 1 tablet by mouth three times daily, scheduled CYCLOBENZAPRINE HCL 10 MG TABS 015272 CYCLOBENZAPRINE HCL Inactive ACCU-CHEK ROSA INVITR STRP use strips with device to check blood sugars 3 times daily ACCU-CHEK ROSA INVITR STRP GLUCOSE BLOOD Inactive ACCU-CHEK ROSA UZMA Use device to check blood sugars ACCU-CHEK ROSA UZMA BLOOD GLUCOSE MONITORING SUPPL Inactive FLUVOXAMINE MALEATE 100 MG ORAL TABS Take 1/2 tab at noon FLUVOXAMINE MALEATE 100 MG ORAL TABS 631464 FLUVOXAMINE MALEATE Inactive FLUVOXAMINE MALEATE 100 MG TABS Take one (1) tablet by mouth am, 1/2 at noon FLUVOXAMINE MALEATE 100 MG TABS 011538 FLUVOXAMINE MALEATE Inactive BACTROBAN 2 % CREAM Apply to affected area BID for up to 10 days BACTROBAN 2 % CREAM 367040 MUPIROCIN CALCIUM Inactive NOVOFINE 32G X 6 MM MISC use one four times per day NOVOFINE 32G X 6 MM MISC INSULIN PEN NEEDLE Inactive TRAZODONE HCL 100 MG ORAL TABS 1 tab by mouth for sleep TRAZODONE HCL 100 MG ORAL TABS 643486 TRAZODONE HCL Inactive LOVAZA 1 GM CAPS 4 daily (for triglycerides) LOVAZA 1 GM CAPS 839902 DNWIZ-7-MHPF ETHYL ESTERS Inactive METFORMIN HCL ER 500 MG YH16H-DVP Take three tablets by mouth everyday METFORMIN HCL ER 500 MG IY72D-PRR METFORMIN HCL Inactive METOPROLOL SUCCINATE 100 MG UE18S-IWG 1 by mouth daily for blood pressure METOPROLOL SUCCINATE 100 MG ZC12R-VLY METOPROLOL SUCCINATE Inactive AMITIZA 24 MCG ORAL CAPS Take one capsule BID for constipation. AMITIZA 24 MCG ORAL CAPS LUBIPROSTONE Inactive TOLTERODINE TARTRATE 2 MG TABS 1 pill twice daily, for bladder TOLTERODINE TARTRATE 2 MG TABS 605444 TOLTERODINE TARTRATE Inactive COLACE 100 MG CAPS 1 pill by mouth twice daily, for constipation COLACE 100 MG CAPS 9414234 DOCUSATE SODIUM Inactive CEFDINIR 300 MG CAPS by mouth twice a day CEFDINIR 300 MG CAPS 198993 CEFDINIR Inactive AZITHROMYCIN 500 MG SOLR 1 po q day AZITHROMYCIN 500 MG SOLR 88930445873 AZITHROMYCIN Inactive AMOXICILLIN 500 MG CAPS 2 po BID x 10 days AMOXICILLIN 500 MG CAPS 225088 AMOXICILLIN Inactive PENICILLIN V POTASSIUM 500 MG TABS 1 pill by mouth three times daily PENICILLIN V POTASSIUM 500 MG TABS 906037 PENICILLIN V POTASSIUM Inactive KEFLEX 500 MG CAP 1 po BID x 7 days KEFLEX 500 MG CAP 763166 CEPHALEXIN Inactive Immunizations Vaccine Administration Date Value [...] Fluvirin, Fluarix, Agriflu(>=18 yo)) Fluzone (>3 yrs.) [[id number]] Influenza, seasonal, injectable pneumococcal immunization administered Pneumovax [...] Panel - Chemistry sodium, serum 137 mmol/L 536-679 3840/10/12 potassium, serum 4.8 mmol/L 3.5-5.2 chloride, serum 102 mmol/L 98-107 carbon dioxide, venous blood 27.6 mmol/L 21.0-32.0 blood glucose 168 mg/dL 65-110 calcium, serum 9.0 mg/dL 8.5-10.1 urea nitrogen, blood 15 mg/dL 7-18 creatinine, serum 1.04 mg/dL 0.55-1.30 sodium, serum 138 mmol/L 896-638 3194/11/11 potassium, serum 4.7 mmol/L 3.5-5.2 chloride, serum [...] % 11.6-14.8 platelet count 240 10^3/MM^3 10*3/mm3 197-461 4751/11/11 leukocyte count, blood 9.6 10^3/MM^3 10*3/mm3 4.6-10.2 [...] Acid - Chemistry cholesterol, serum 187 mg/dL 686-248 4682/06/14 triglyceride, serum, fasting 246 mg/dL 30-200 HDL [...] negative Encounters Code Encounter Date Provider Facility CPT-27540 Level 3 Est. Patient 16:27:51 CDT Mima Erazo [facility]-92798 Level 3 Est. Patient 14:39:00 TERMITE CONTROL REPRESENTATIVE Vanessa Hickey MD [facility]-50156 Level 2 Est. Patient 18:43:34 CDT Mima Erazo [facility] CPT-90294 Level 3 Est. Patient 16:22:09 CDT Cherelle Avila [facility] CPT-18667 Level 4 Est. Patient 17:55:14 CDT Mima Erazo [facility] CPT-54520 Level 2 Est. Patient 17:13:21 CDT Alina Castaneda MD [facility]-88353 Level 3 Est. Patient 14:46:15 CDT Vanessa Hickey MD [facility]-28207 Level 3 Est. Patient 09:34:56 CDT Alina Castaneda MD [facility]57509 Level 3 Est. Patient 21:40:19 CDT Mima Erazo [facility] CPT-70671 Level 3 Est. Patient 09:26:40 CDT Marvel Charles [facility]-68626 Level 3 Est. Patient 12:36:43 CDT Vanessa Hickey MD [facility]-87782 Level 3 Est. Patient 12:57:49 CDT Vanessa Hickey MD [facility]-92332 Level 3 Est. Patient 00:28:25 CDT Alina Castaneda MD [facility]53290 Level 2 Est. Patient 12:52:14 CDT Alina Castaneda MD [facility]23836 Level 3 Est. Patient 11:51:18 TERMITE CONTROL REPRESENTATIVE Alina Castaneda MD [facility]-73722 Level 3 Est. Patient 10:09:22 TERMITE CONTROL REPRESENTATIVE Alina Castaneda MD [facility]-07994 Level 3 Est. Patient 14:36:26 TERMITE CONTROL REPRESENTATIVE Marvel Charles [facility]-63856 Level 3 Est. Patient 13:34:47 TERMITE CONTROL REPRESENTATIVE Alina Castaneda MD [facility]81186 Level 3 Est. Patient 19:52:08 TERMITE CONTROL REPRESENTATIVE Alina Castaneda MD [facility]14647 Level 3 Est. Patient 10:01:51 TERMITE CONTROL REPRESENTATIVE Marvel Charles [facility]-13233 Level 3 Est. Patient 21:54:06 CDT Vanessa Hickey MD [facility]-49779 Level 3 Est. Patient 08:54:46 CDT Alina Castaneda MD [facility]20261 Level 3 Est. Patient 09:32:11 CDT Marvel Charles [facility]-45282 Level 3 Est. Patient 12:02:49 CDT Alina Castaneda MD [facility]19467 Level 3 Est. Patient 19:17:33 CDT Alina Castaneda MD [facility]-30417 Level 3 Est. Patient 13:19:10 CDT Marvel Charles [facility]-47300 Level 3 Est. Patient 08:20:05 CDT Alina Castaneda MD [facility]15229 Level 3 Est. Patient 15:17:18 CDT Alina Castaneda MD [facility]78848 Level 3 Est. Patient 14:25:36 TERMITE CONTROL REPRESENTATIVE Marvel Charles [facility]94280 Level 3 Est. Patient 10:09:15 TERMITE CONTROL REPRESENTATIVE Marvel Charles [facility] CPT-95777 Level 3 Est. Patient 21:28:43 CDT Alina Castaneda MD [facility] CPT-74384 Level 3 Est. Patient 15:20:11 CDT Marvel Thurstonestela [facility] CPT-72937 Level 4 Est. Patient 19:08:12 CDT Alina Castaneda MD [facility] CPT-10879 Level 3 Est. Patient 15:06:39 CDT Marvel Gurdeepajayestela [facility] CPT-56568 Level 4 Est. Patient 17:48:15 CDT Alina Castaneda MD [facility] CPT-19505 Level 3 Est. Patient 14:53:49 CDT Alina Castaneda MD [facility] CPT-88051 Level 3 Est. Patient 09:35:16 CDT Alina Castaneda MD [facility] CPT-79981 Level 3 Est. Patient 12:23:22 CDT Alina Castaneda MD [facility] CPT-12367 Level 3 Est. Patient 16:19:15 CDT Alina Castaneda MD [facility] CPT-39770 Level 3 Est. Patient 21:39:56 TERMITE CONTROL REPRESENTATIVE Alina Castaneda MD [facility] CPT-11736 Level 4 Est. Patient 14:12:56 TERMITE CONTROL REPRESENTATIVE Alina Castaneda MD [facility]-34941 Level 2 Est. Patient 15:34:57 TERMITE CONTROL REPRESENTATIVE Alina Castaneda MD [facility] CPT-95299 Level 3 Est. Patient 12:17:04 TERMITE CONTROL REPRESENTATIVE Alina Castaneda MD [facility]-77364 Level 3 Est. Patient 09:18:18 TERMITE CONTROL REPRESENTATIVE Marvel Araceli [facility]-54213 Level 2 Est. Patient 21:50:24 CDT Alina Castaneda MD [facility]95668 Level 3 Est. Patient 09:17:28 CDT Brooksjohn Charles [facility]-98513 Level 4 Est. Patient 18:54:02 CDT Alina Castaneda MD [facility]22201 Level 3 Est. Patient 10:47:10 CDT Alina Castaneda MD [facility]29917 Level 3 Est. Patient 09:22:20 CDT Brookslashondanivia Araceli [facility]-53479 Level 3 Est. Patient 16:39:43 CDT Brooksjohn Charles [facility]-66463 Level 3 Est. Patient 16:05:16 CDT Alina Castaneda MD [facility]00286 Level 3 Est. Patient 00:29:15 CDT Alina Castaneda MD [id number] Level 3 Est. Patient 10:49:22 TERMITE CONTROL REPRESENTATIVE Brooksjohn Charles [facility]-[id number] Level 3 Est. Patient 21:30:19 TERMITE CONTROL REPRESENTATIVE Alina Castaneda MD [facility]-[id number] Level 4 Est. Patient 17:04:11 TERMITE CONTROL REPRESENTATIVE [facility] Level 3 Est. Patient 15:34:11 TERMITE CONTROL REPRESENTATIVE Marvel [facility]-[id number] Level 2 Est. Patient 12:51:58 TERMITE CONTROL REPRESENTATIVE Alina Castaneda MD PhD [facility] CPT-03136 Level 3 Est. Patient 13:20:01 TERMITE CONTROL REPRESENTATIVE Alina Castaneda MD PhD [facility] CPT-61044 Level 3 Est. Patient 09:23:35 CDT Alina Castaneda MD PhD [facility] Procedures Code Procedure Name Date Entry Date Standard Description CPT-91659 Bladder Scan 14:39:01 TERMITE CONTROL REPRESENTATIVE CPT-TCMM Transitional Care Mgmt-Moderate 10:30:19 TERMITE CONTROL REPRESENTATIVE CPT-45287 Bladder Scan 12:36:44 CDT CPT-69151 Bladder Scan 21:54:06 CDT CPT-G0008 Administration of Influenza Virus Vaccine 13:05:26 CDT CPT-50111 Fluzone Quadrivalent Intramuscular Suspension 0.5 ML 13: 05:26 CDT CPT-24731 Administration single or combination vaccine inc oral 11 :49:51 CDT CPT-61061 Pneumovax 11:49:51 CDT CPT-86768 Ribs unilateral 2V 12:37:22 TERMITE CONTROL REPRESENTATIVE CPT-33118 Chest 2V Frontal and Lat 17:15:26 CDT CPT-74062 Abx/Therapy Injection 18:54:02 CDT CPT-J0696 Rocephin 1000 mg (Ceftriaxone) 16:00:32 CDT CPT-72078 Chest 2V Frontal and Lat 15:26:45 CDT CPT-87788 Chest 2V Frontal and Lat 10:23:27 CDT CPT-13610 Venipuncture Draw Fee 10:11:00 CDT CPT-36396 Administration single or combination vaccine inc oral 11 :56:38 CDT CPT-66194 Influenza split virus > age 3 11:56:38 CDT CPT-54222 Venipuncture Draw Fee 08:49:54 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
--- OUTSIDE RECORDS SUMMARY | 2018-07-02 13:53 | XMS REPORT | Clinical Summary ---
Author Author Admin, T[facility] Address Unknown Phone Unavailable Allergies, Adverse Reactions, [...] of unspecified site CHEST PAIN 786.50 Resolved Alian Castaneda MD PhD Unspecified chest pain ANEMIA [...] Acute bronchitis PNEUMONIA, ORGANISM UNSPECIFIED 486 Resolved Alian Castaneda MD PhD Pneumonia, organism unspecified RIB 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 Erazo OUTSIDE MACHINIST SUPERVISOR Benign paroxysmal positional vertigo Vertigo, benign paroxysmal position 386.11 Inactive Mima Erazo OUTSIDE MACHINIST SUPERVISOR Benign paroxysmal positional vertigo High-risk sexual behavior V69.2 Active Alina Castaneda MD PhD High-risk sexual behavior Erectile dysfunction 302.72 Active Alina Castaneda MD PhD Psychosexual dysfunction with inhibited sexual excitement Constipation 564.00 Active Alina Castaneda MD PhD Constipation, unspecified Skin lesion 709.9 Active Alina Castaneda MD PhD Unspecified disorder of skin and subcutaneous tissue Malaise and fatigue 780.79 Active Cherelle Speaks OUTSIDE MACHINIST SUPERVISOR Other malaise and fatigue Diarrhea 787.91 Active Cherelle Speaks OUTSIDE MACHINIST SUPERVISOR Diarrhea PHARYNGITIS 462 Active Cherelle Speaks OUTSIDE MACHINIST SUPERVISOR Acute pharyngitis Colitis 558.9 Active Mima Erazo OUTSIDE MACHINIST SUPERVISOR Other and unspecified noninfectious gastroenteritis and colitis WOUND, OPEN, NOSE ICD-873.20 Inactive Alina Castaneda MD PhD DIABETES, TYPE 2 ICD-250.00 Inactive Alina Castaneda MD PhD HYPERTENSION ICD-401.9 Inactive Alina Castaneda MD PhD URI ICD-465.9 Inactive Alina Castaneda MD PhD CHEST PAIN ICD-786.50 Inactive Alina Castaneda MD PhD FH STROKE ICD-V17.1 Inactive Marvel Charles LAW RESEARCHER FATIGUE ICD-780.79 Inactive Alina Castaneda MD PhD [...] RIB PAIN, RIGHT SIDED ICD-786.50 Inactive Alina Casatneda MD PhD SKIN LESION ICD-709.9 Inactive Alina Castaneda MD PhD SINUSITIS, ACUTE ICD-461.9 Roro [...] atypical ICD-786.59 Inactive Alina Castaneda MD PhD ABNORMAL HEART RHYTHMS ICD-427.9 Inactive Alina Castaneda MD PhD Medication List Medication Instructions Start Date Stop Date Generic Name NDC Status Provider Patient Instruction TOLTERODINE TARTRATE 2 MG TABS 1 pill twice daily, for bladder TOLTERODINE TARTRATE 31721326158 No Longer Active Vanessa Hickey MD Active AMITIZA 24 MCG ORAL CAPS Take one capsule BID for constipation. LUBIPROSTONE 11847674058 No Longer Active Vanessa Hickey MD Active LOMOTIL 2.5-0.025 MG ORAL TABS take 1-2 tabs PO after each stool, no more than 8 in 24 hours DIPHENOXYLATE-ATROPINE 68154737112 Active Grace ROJAS Active FLUVOXAMINE MALEATE 100 MG ORAL TABS take one tab every AM et HS, and take 1/ 2 tab at noon FLUVOXAMINE MALEATE 84878473879 Active Grace ROJAS Active METOPROLOL SUCCINATE 100 MG [id number]-ZSQ 1 by mouth daily for blood pressure METOPROLOL SUCCINATE 22949562289 No Longer Active Grace ROJAS Active METFORMIN HCL ER 500 MG XY22M-CVP Take three tablets by mouth everyday METFORMIN HCL 56323969342 No Longer Active Grace ROJAS Active LOVAZA 1 GM CAPS 4 daily (for triglycerides) OMEGA-3- ACID ETHYL ESTERS 90006864726 No Longer Active Grace Azam RMA Active TRAZODONE HCL 100 MG ORAL TABS 1 tab by mouth for sleep TRAZODONE HCL 85842450667 No Longer Active Grace Azam RMA Active NOVOFINE 32G X 6 MM MISC use one four times per day INSULIN PEN NEEDLE 73103199262 No Longer Active Grace Azam RMA Active BACTROBAN 2 % CREAM Apply to affected area BID for up to 10 days MUPIROCIN CALCIUM 00924803818 No Longer Active Grace Azam RMA Active ZOFRAN 4 MG TABS 1 po q4hr PRN Nausea ONDANSETRON HCL 29885856506 Active Salina Han RMA Active KEFLEX 500 MG CAP 1 po BID x 7 days CEPHALEXIN 20682391733 No Longer Active Cherelle Speaks OUTSIDE MACHINIST SUPERVISOR Active FLUVOXAMINE MALEATE 100 MG TABS Take one (1) tablet by mouth am, 1/2 at noon FLUVOXAMINE MALEATE 62667238325 No Longer Active Mima Erazo OUTSIDE MACHINIST SUPERVISOR Active CORICIDIN HBP CONGESTION/COUGH 10-200 MG ORAL CAPS Take as directed on box as needed for cold/flu symptoms DEXTROMETHORPHAN-GUAIFENESIN 90500191856 Active Cherelle Speaks OUTSIDE MACHINIST SUPERVISOR Active OMEGA-3 300 MG ORAL CAPS 4 caps by mouth daily OMEGA-3 FATTY ACIDS 27297712752 Active Cherelle Speaks OUTSIDE MACHINIST SUPERVISOR Active FLUVOXAMINE MALEATE 100 MG ORAL TABS Take 1/2 tab at noon FLUVOXAMINE MALEATE 72557368903 No Longer Active Cherelle Speaks OUTSIDE MACHINIST SUPERVISOR Active [facility] LUBRICANT EYE DROPS 0.4-0.3 % OPHTH SOLN POLYETHYL GLYCOL-PROPYL GLYCOL 41062186334 Active Mima Yoeloinaum OUTSIDE MACHINIST SUPERVISOR Active CLONAZEPAM 1 MG TABS 1/2 pill by mouth three times daily CLONAZEPAM 99415326009 Active Alina Castaneda MD PhD Active MIRALAX POWD 17g by mouth daily, for constipation POLYETHYLENE GLYCOL 3350 99128584288 Active Alina Castaneda MD PhD Active HYDROCODONE-ACETAMINOPHEN 5-325 MG TABS 2 tabs by mouth three times daily for pain HYDROCODONE-ACETAMINOPHEN 48474997473 Active Mima Erazo OUTSIDE MACHINIST SUPERVISOR Active HUMALOG KWIKPEN 100 UNIT/ML SC SOPN 20 units with breakfast, 10 units with lunch, 10 units with dinner, for diabetes INSULIN LISPRO (HUMAN ) 45038401998 Active Alina Castaneda MD PhD Active LEVEMIR FLEXTOUCH 100 UNIT/ML SC SOPN 70 units SQ each evening, for diabetes INSULIN DETEMIR 45130105386 Active Alina Castaneda MD PhD Active LATUDA 120 MG ORAL TABS 1 pill by mouth nightly LURASIDONE HCL 43029812146 Active Alina Castaneda MD PhD Active COLACE 100 MG CAPS 1 pill by mouth twice daily, for constipation DOCUSATE SODIUM 89856122727 Active Alina Castaneda MD PhD Active TRUETEST TEST STRP check blood sugars 3x/day GLUCOSE BLOOD 71268022800 Active Marvel MENDOZAP Active ACCU-CHEK ROSA UZMA Use device to check blood sugars BLOOD GLUCOSE MONITORING SUPPL 99861777081 No Longer Active Marvel MARROQUIN Active ACCU-CHEK ROSA INVITR STRP use strips with device to check blood sugars 3 times daily GLUCOSE BLOOD 40076948928 No Longer Active Marvel MENDOZAP Active VERAPAMIL HCL ER 180 MG ORAL CR-TABS 1 pill by mouth twice daily, for migraine prevention VERAPAMIL HCL 37034783488 Active Alina Castaneda MD PhD Active CYCLOBENZAPRINE HCL 10 MG TABS 1 tablet by mouth three times daily, scheduled CYCLOBENZAPRINE HCL 13770737865 No Longer Active Alina Castaneda MD PhD Active HUMALOG 100 UNIT/ML SOLN Take 20 units with breakfast, 10u with lunch and suppetr. INSULIN LISPRO (HUMAN) 35467716396 No Longer Active Alina Castaneda MD PhD Active TRUETEST TEST STRP check sugars 4x/day GLUCOSE BLOOD 23022374144 No Longer Active Alina Castaneda MD PhD Active MORPHINE SULFATE 30 MG TABS 1 pill by mouth twice daily, for pain MORPHINE SULFATE 31035294001 Active Mima Erazo OUTSIDE MACHINIST SUPERVISOR Active ACYCLOVIR 400 MG ORAL TABS 1 pill three times daily x 5 days, for cold sore outbreak ACYCLOVIR 16552466705 No Longer Active Alina Castaneda MD PhD Active PENICILLIN V POTASSIUM 500 MG TABS 1 pill by mouth three times daily PENICILLIN V POTASSIUM 38712547811 No Longer Active Alina Castaneda MD PhD Active UROXATRAL 10 MG DZ24D-SKC Take 1 tablet by mouth daily ALFUZOSIN HCL 63324577583 No Longer Active Alina Castaneda MD PhD Active THIOTHIXENE 5 MG CAPS by mouth twice a day THIOTHIXENE 79117477427 No Longer Active Alina Castaneda MD PhD Active ZYPREXA 7.5 MG TABS 1 at HS OLANZAPINE 11573669223 No Longer Active Alina Castaneda MD PhD Active BD INSULIN SYRINGE 28G X 1/2" 1 ML MISC 1 four times per day INSULIN SYRINGE-NEEDLE U-100 93553670798 Active Marvel Charles [facility] Active DETROL LA 4 MG IT73I-UJK Take 1 tablet by mouth daily TOLTERODINE TARTRATE 57671906242 No Longer Active Alina Castaneda MD PhD Active TERESE CONTOUR TEST STRP monitor blood sugars 3x/day GLUCOSE BLOOD 03979133671 No Longer Active Alina Castaneda MD PhD Active EQL TRUETEST TEST STRP Test blood sugar TID GLUCOSE BLOOD 48745292919 No Longer Active Alina Castaneda MD PhD Active FLUTICASONE PROPIONATE 50 MCG/ACT SUSP 2 sprays each nostril qDay x 30 days FLUTICASONE PROPIONATE 01448924010 No Longer Active Alina Castaneda MD PhD Active IBUPROFEN 200 MG TABS 1 Q 6 hr. PRN IBUPROFEN 03362426560 No Longer Active Alina Castaneda MD PhD Active NIACIN ER 500 MG CR-TABS 4 qHS (for triglycerides) NIACIN 50413733837 No Longer Active Alina Castaneda MD PhD Active ALFUZOSIN HCL ER 10 MG HN23C-KQC 1 tablet daily ALFUZOSIN HCL 47257283798 Active Vanessa Hickey MD Active SAPHRIS 5 MG SUBL by mouth twice a day ASENAPINE MALEATE 29698703272 No Longer Active Maliheh Ziglari LAW RESEARCHER Active ACETAMINOPHEN 500 MG TABS 2 Q 6 hr. PRN ACETAMINOPHEN 56506233432 No Longer Active Maliheh Ziglari LAW RESEARCHER Active ORPHENADRINE CITRATE ER 100 MG RJ34Z-RDX 1 every 12 hr. as needed ORPHENADRINE CITRATE 94425482159 No Longer Active Alina Castaneda MD PhD Active NIACIN CR 500 MG CR-TABS 2 qHS NIACIN 24354136623 No Longer Active Alina Castaneda MD PhD Active AMOXICILLIN 500 MG CAPS 2 po BID x 10 days AMOXICILLIN 77654548953 No Longer Active Alina Castaneda MD PhD Active HYDROCODONE-ACETAMINOPHEN 7.5-325 MG TABS 1 four times a day as needed for pain HYDROCODONE-ACETAMINOPHEN 50674230700 No Longer Active Alina Castaneda MD PhD Active DOXEPIN HCL 10 MG CAPS Take 1 tablet by mouth daily DOXEPIN HCL 48726453599 No Longer Active Salina ROJAS Active NAVANE 10 MG CAPS 1/2 tablet twice a day THIOTHIXENE No Longer Active Salina ROJAS Active CYCLOBENZAPRINE HCL 10 MG TABS 1/2 tablet by mouth every 8 hours as needed for muscle spasms CYCLOBENZAPRINE HCL 89228753001 No Longer Active Alina Castaneda MD PhD Active BACTROBAN 2 % CREAM apply to ear and nose twice daily MUPIROCIN CALCIUM 25756111678 No Longer Active Alina Castaneda MD PhD Active HYDROCODONE-ACETAMINOPHEN 5-325 MG TABS take one tablet by mouth every four hours as needed for pain HYDROCODONE-ACETAMINOPHEN 36530663071 No Longer Active Alina Castaneda MD PhD Active ZOLPIDEM TARTRATE 10 MG TABS take at bedtime ZOLPIDEM TARTRATE 05538708846 Active Alina Castaneda MD PhD Active ZYPREXA 5 MG TABS take one tablet by mouth every evening OLANZAPINE 98618531728 No Longer Active Alina Castaneda MD PhD Active ALBUTEROL SULFATE 0.083 % NEBU SOLN one vial per nebulizer TID and PRN cough/ soa ALBUTEROL SULFATE 63559675558 No Longer Active Alina Castaneda MD PhD Active GUAIFENESIN 600 MG KV73N-DXD 1 tablet by mouth twice daily if needed for cough GUAIFENESIN 29313362811 No Longer Active Marvel MARROQUIN Active AZITHROMYCIN 500 MG SOLR 1 po q day AZITHROMYCIN 58264692466 No Longer Active Alina Castaneda MD PhD Active PROMETHAZINE-CODEINE 6.25-10 MG/5ML SYRP 1 tsp po q 6 hours prn cough PROMETHAZINE-CODEINE 00159688599 No Longer Active Alina Castaneda MD PhD Active CEFDINIR 300 MG CAPS by mouth twice a day CEFDINIR 75494695722 No Longer Active Alina Castaneda MD PhD Active METFORMIN HCL 500 MG SP28D-KER Take 3 tablets by mouth everyday METFORMIN HCL 69638812236 No Longer Active Alina Castaneda MD PhD Active LEVEMIR 100 UNIT/ML SOLN 90 units SQ qHS INSULIN DETEMIR 71759298408 No Longer Active Marvel MARROQUIN Active TOPROL XL 100 MG LJ22A-WUD 1 @ HS METOPROLOL SUCCINATE 97248846377 No Longer Active Marvel MARROQUIN Active ALLOPURINOL 300 MG TABS Take one by mouth daily ALLOPURINOL 31017620075 Active Alina Castaneda MD PhD Active ZYPREXA 10 MG TABS Take one by mouth daily OLANZAPINE 41337929711 No Longer Active Alina Castaneda MD PhD Active NOVOLOG 100 UNIT/ML SOLN 40 units with every meal INSULIN ASPART 79839157779 No Longer Active Alina Castaneda MD PhD Active VERAPAMIL HCL CR 120 MG TAB CR 1 qPM VERAPAMIL HCL 89932067944 No Longer Active Salina ROBBINSA Active ZYPREXA 15 MG TABS Take 1 tablet by mouth daily OLANZAPINE 28919864085 No Longer Active Marvel MARROQUIN Active LISINOPRIL 20 MG TABS 1 BID LISINOPRIL 52756952366 Active Alina Castaneda MD PhD Active ALBUTEROL SULFATE (2.5 MG/3ML) 0.083% NEBU 1 neb tid and prn cough ALBUTEROL SULFATE 48249325920 No Longer Active Alina Castaneda MD PhD Active TRAVATAN Z 0.004 % SOLN 1 gtt each eye daily TRAVOPROST 83792433439 Active CRYSTAL Suarez Active LANTUS 100 UNIT/ML SOLN 60 units sq q hs INSULIN GLARGINE 44247333705 No Longer Active CRYSTAL Suarez Active ALBUTEROL SULFATE (2.5 MG/3ML) 0.083% NEBU 1 neb tid and prn cough ALBUTEROL SULFATE (2.5 MG/3ML) 0.083% NEBU 512072 ALBUTEROL SULFATE Inactive ZYPREXA 15 MG TABS Take 1 tablet by mouth daily ZYPREXA 15 MG TABS 605727 OLANZAPINE Inactive VERAPAMIL HCL CR 120 MG TAB CR 1 qPM VERAPAMIL HCL CR 120 MG TAB CR VERAPAMIL HCL Inactive ZYPREXA 10 MG TABS Take one by mouth daily ZYPREXA 10 MG TABS 198621 OLANZAPINE Inactive TOPROL XL 100 MG [id number]-UDD 1 @ HS TOPROL XL 100 MG TG34O-WOW METOPROLOL SUCCINATE Inactive LEVEMIR 100 UNIT/ML SOLN 90 units SQ qHS LEVEMIR 100 UNIT/ML SOLN INSULIN DETEMIR Inactive PROMETHAZINE-CODEINE 6.25-10 MG/5ML SYRP 1 tsp po q 6 hours prn cough PROMETHAZINE-CODEINE 6.25-10 MG/5ML SYRP 358891 PROMETHAZINE- CODEINE Inactive GUAIFENESIN 600 MG ST86G-YOV 1 tablet by mouth twice daily if needed for cough GUAIFENESIN 600 MG YM63O-MIS GUAIFENESIN Inactive ALBUTEROL SULFATE 0.083 % NEBU SOLN one vial per nebulizer TID and PRN cough/ soa ALBUTEROL SULFATE 0.083 % NEBU SOLN 919118 ALBUTEROL SULFATE Inactive ZYPREXA 5 MG TABS take one tablet by mouth every evening ZYPREXA 5 MG TABS 164166 OLANZAPINE Inactive HYDROCODONE-ACETAMINOPHEN 5-325 MG TABS take one tablet by mouth every four hours as needed for pain HYDROCODONE-ACETAMINOPHEN 5-325 MG TABS 094415 HYDROCODONE-ACETAMINOPHEN Inactive BACTROBAN 2 % CREAM apply to ear and nose twice daily BACTROBAN 2 % CREAM 649076 MUPIROCIN CALCIUM Inactive CYCLOBENZAPRINE HCL 10 MG TABS 1/2 tablet by mouth every 8 hours as needed for muscle spasms CYCLOBENZAPRINE HCL 10 MG TABS 256225 CYCLOBENZAPRINE HCL Inactive NAVANE 10 MG CAPS 1/2 tablet twice a day NAVANE 10 MG CAPS THIOTHIXENE Inactive DOXEPIN HCL 10 MG CAPS Take 1 tablet by mouth daily DOXEPIN HCL 10 MG CAPS 6102873 DOXEPIN HCL Inactive HYDROCODONE-ACETAMINOPHEN 7.5-325 MG TABS 1 four times a day as needed for pain HYDROCODONE-ACETAMINOPHEN 7.5-325 MG TABS 474951 HYDROCODONE-ACETAMINOPHEN Inactive NIACIN CR 500 MG CR-TABS 2 qHS NIACIN CR 500 MG CR- TABS NIACIN Inactive ORPHENADRINE CITRATE ER 100 MG UQ77T-FAQ 1 every 12 hr. as needed ORPHENADRINE CITRATE ER 100 MG BI62O-GXN ORPHENADRINE CITRATE Inactive ACETAMINOPHEN 500 MG TABS 2 Q 6 hr. PRN ACETAMINOPHEN 500 MG TABS 760489 ACETAMINOPHEN Inactive SAPHRIS 5 MG SUBL by mouth twice a day SAPHRIS 5 MG SUBL ASENAPINE MALEATE Inactive NIACIN ER 500 MG CR-TABS 4 qHS (for triglycerides) NIACIN ER 500 MG CR-TABS NIACIN Inactive IBUPROFEN 200 MG TABS 1 Q 6 hr. PRN IBUPROFEN 200 MG TABS 356561 IBUPROFEN Inactive FLUTICASONE PROPIONATE 50 MCG/ACT SUSP 2 sprays each nostril qDay x 30 days FLUTICASONE PROPIONATE 50 MCG/ACT SUSP 883414 FLUTICASONE PROPIONATE Inactive EQL TRUETEST TEST STRP Test blood sugar TID EQL TRUETEST TEST STRP GLUCOSE BLOOD Inactive TERESE CONTOUR TEST STRP monitor blood sugars 3x/day TERESE CONTOUR TEST STRP GLUCOSE BLOOD Inactive DETROL LA 4 MG DF19J-CDS Take 1 tablet by mouth daily DETROL LA 4 MG MV71O-QKG TOLTERODINE TARTRATE Inactive ZYPREXA 7.5 MG TABS 1 at HS ZYPREXA 7.5 MG TABS 218028 OLANZAPINE Inactive THIOTHIXENE 5 MG CAPS by mouth twice a day THIOTHIXENE 5 MG CAPS 065712 THIOTHIXENE Inactive UROXATRAL 10 MG BH06B-KOK Take 1 tablet by mouth daily UROXATRAL 10 MG SI65D-WJZ ALFUZOSIN HCL Inactive ACYCLOVIR 400 MG ORAL TABS 1 pill three times daily x 5 days, for cold sore outbreak ACYCLOVIR 400 MG ORAL TABS 344735 ACYCLOVIR Inactive TRUETEST TEST STRP check sugars 4x/day TRUETEST TEST STRP GLUCOSE BLOOD Inactive HUMALOG 100 UNIT/ML SOLN Take 20 units with breakfast, 10u with lunch and suppetr. HUMALOG 100 UNIT/ML SOLN INSULIN LISPRO ( HUMAN) Inactive CYCLOBENZAPRINE HCL 10 MG TABS 1 tablet by mouth three times daily, scheduled CYCLOBENZAPRINE HCL 10 MG TABS 036464 CYCLOBENZAPRINE HCL Inactive ACCU-CHEK ROSA INVITR STRP use strips with device to check blood sugars 3 times daily ACCU-CHEK ROSA INVITR STRP GLUCOSE BLOOD Inactive ACCU-CHEK ROSA UZMA Use device to check blood sugars ACCU-CHEK ROSA UZMA BLOOD GLUCOSE MONITORING SUPPL Inactive FLUVOXAMINE MALEATE 100 MG ORAL TABS Take 1/2 tab at noon FLUVOXAMINE MALEATE 100 MG ORAL TABS 087428 FLUVOXAMINE MALEATE Inactive FLUVOXAMINE MALEATE 100 MG TABS Take one (1) tablet by mouth am, 1/2 at noon FLUVOXAMINE MALEATE 100 MG TABS 559483 FLUVOXAMINE MALEATE Inactive BACTROBAN 2 % CREAM Apply to affected area BID for up to 10 days BACTROBAN 2 % CREAM 609735 MUPIROCIN CALCIUM Inactive NOVOFINE 32G X 6 MM MISC use one four times per day NOVOFINE 32G X 6 MM MISC INSULIN PEN NEEDLE Inactive TRAZODONE HCL 100 MG ORAL TABS 1 tab by mouth for sleep TRAZODONE HCL 100 MG ORAL TABS 238430 TRAZODONE HCL Inactive LOVAZA 1 GM CAPS 4 daily (for triglycerides) LOVAZA 1 GM CAPS 631992 UMXTX-0-ZLQG ETHYL ESTERS Inactive METFORMIN HCL ER 500 MG XO09J-EDW Take three tablets by mouth everyday METFORMIN HCL ER 500 MG WL48V-DSJ METFORMIN HCL Inactive METOPROLOL SUCCINATE 100 MG IB22N-JAU 1 by mouth daily for blood pressure METOPROLOL SUCCINATE 100 MG XD25M-OGE METOPROLOL SUCCINATE Inactive AMITIZA 24 MCG ORAL CAPS Take one capsule BID for constipation. AMITIZA 24 MCG ORAL CAPS LUBIPROSTONE Inactive TOLTERODINE TARTRATE 2 MG TABS 1 pill twice daily, for bladder TOLTERODINE TARTRATE 2 MG TABS 922262 TOLTERODINE TARTRATE Inactive CEFDINIR 300 MG CAPS by mouth twice a day CEFDINIR 300 MG CAPS 384398 CEFDINIR Inactive AZITHROMYCIN 500 MG SOLR 1 po q day AZITHROMYCIN 500 MG SOLR 03248111125 AZITHROMYCIN Inactive AMOXICILLIN 500 MG CAPS 2 po BID x 10 days AMOXICILLIN 500 MG CAPS 564238 AMOXICILLIN Inactive PENICILLIN V POTASSIUM 500 MG TABS 1 pill by mouth three times daily PENICILLIN V POTASSIUM 500 MG TABS 310332 PENICILLIN V POTASSIUM Inactive KEFLEX 500 MG CAP 1 po BID x 7 days KEFLEX 500 MG CAP 891325 CEPHALEXIN Inactive Immunizations Vaccine Administration Date Value [...] Fluvirin, Fluarix, Agriflu(>=18 yo)) Fluzone (>3 yrs.) [[id number]] Influenza, seasonal, injectable pneumococcal immunization administered Pneumovax [...] E&M - 3141-9 241.4 [lb_av] Weight Measured Diagnostic Results Date Name Value Unit Range Description Lab Report: Basic Metabolic Panel, HGBA1C, MICROALBUMIN - Chemistry sodium, serum 137 mmol/L 721-634 5616/05/19 potassium, serum 5.2 mmol/L 3.5-5.2 chloride, serum [...] Panel - Chemistry sodium, serum 137 mmol/L 011-008 5571/10/12 potassium, serum 4.8 mmol/L 3.5-5.2 chloride, serum 102 mmol/L 98-107 carbon dioxide, venous blood 27.6 mmol/L 21.0-32.0 blood glucose 168 mg/dL 65-110 calcium, serum 9.0 mg/dL 8.5-10.1 urea nitrogen, blood 15 mg/dL 7-18 creatinine, serum 1.04 mg/dL 0.55-1.30 sodium, serum 138 mmol/L 029-646 3438/11/11 potassium, serum 4.7 mmol/L 3.5-5.2 chloride, serum [...] % 11.6-14.8 platelet count 252 10^3/MM^3 10*3/mm3 203-214 7378/10/12 leukocyte count, blood 5.8 10^3/MM^3 10*3/mm3 4.6-10.2 [...] 240 10^3/MM^3 10*3/mm3 142-424 Lab Report: Chlamydia/GC APTIMA/37387, HIV-1/2 Agn/Dominga/15448, RPR (DX) W ... - Chemistry hepatitis B surface antigen NON-REACTIVE NON-REACTIVE Lab Report: Chlamydia/GC APTIMA/81245, HIV-1/2 Agn/Dominga/61112, RPR (DX) W ... - Lab chlamydia DNA probe NOT DETECTED NOT DETECTED Lab Report: Chlamydia/GC APTIMA/86540, HIV-1/2 Agn/Dominga/35199, RPR (DX) W ... - Microbiology Neisseria gonorrhoeae DNA probe NOT DETECTED NOT DETECTED Lab Report: Chlamydia/GC APTIMA/73098, HIV-1/2 Agn/Dominga/23702, RPR (DX) W ... - Serology rapid plasma reagin antibody titer NON-REACTIVE NON-REACTIVE Lab Report: HGBA1C - Chemistry hemoglobin A1C, blood, as % of total hemoglobin 6.1 % 4.3-6.0 Lab Report: Lipid Panel, HEPATIC PANEL, MICROALBUMIN, CBC - Chemistry albumin/creatinine ratio, urine < 30 mg/g mg/g{creat} 0-29 cholesterol, serum 131 mg/dL 686-334 3996/06/03 triglyceride, serum, fasting 383 mg/dL 30-200 HDL [...] 4.7 mg/dL 2.6-7.2 cholesterol, serum 142 mg/dL 583-825 1919/06/26 triglyceride, serum, fasting 272 mg/dL 30-200 HDL [...] pH, urine, semiquantitative 5.5 5.0-8.5 Office Visit: 6 mo f/u uroxatrol - [...] negative Encounters Code Encounter Date Provider Facility CPT-85252 Level 3 Est. Patient 14:39:00 CONTACT ASSEMBLER Vanessa Hickey MD [facility] CPT-91134 Level 2 Est. Patient 18:43:34 CDT Mima Erazo [facility] [place] CPT-02972 Level 3 Est. Patient 16:22:[address] [facility] CPT-50564 Level 4 Est. Patient 17:55:14 CDT Mima Erazo [facility] [place] CPT-72460 Level 2 Est. Patient 17:13:21 CDT Alina Castaneda MD [facility] CPT-99856 Level 3 Est. Patient 14:46:15 CDT Vanessa Hickey MD [facility] CPT-16629 Level 3 Est. Patient 09:34:56 CDT Alina Castaneda MD [facility]-49891 Level 3 Est. Patient 21:40:19 CDT Mima Erazo [place] [facility] [place]-[address]90 Level 3 Est. Patient 09:26:40 CDT Marvel Charles [facility]-59814 Level 3 Est. Patient 12:36:43 CDT Vanessa Hickey MD [facility]-95561 Level 3 Est. Patient 12:57:49 CDT Vanessa Hickey MD [facility]-73450 Level 3 Est. Patient 00:28:25 CDT Alina Castaneda MD [facility]04720 Level 2 Est. Patient 12:52:14 CDT Alina Castaneda MD [facility]-77973 Level 3 Est. Patient 11:51:18 CONTACT ASSEMBLER Alina Castaneda MD [facility]-56451 Level 3 Est. Patient 10:09:22 CONTACT ASSEMBLER Alina Castaneda MD [facility]67361 Level 3 Est. Patient 14:36:26 CONTACT ASSEMBLER Marvel Charles [facility]-65792 Level 3 Est. Patient 13:34:47 CONTACT ASSEMBLER Alina Castaneda MD [facility]-42881 Level 3 Est. Patient 19:52:08 CONTACT ASSEMBLER Alina Castaneda MD [facility]34726 Level 3 Est. Patient 10:01:51 CONTACT ASSEMBLER Marvel Charles [facility]-63713 Level 3 Est. Patient 21:54:06 CDT Vanessa Hickey MD [facility]58445 Level 3 Est. Patient 08:54:46 CDT Alina Castaneda MD [facility]-31005 Level 3 Est. Patient 09:32:11 CDT Marvel Araceli [facility]-38594 Level 3 Est. Patient 12:02:49 CDT Alina Castaneda MD [facility]-65962 Level 3 Est. Patient 19:17:33 CDT Alina Csataneda MD [facility]99356 Level 3 Est. Patient 13:19:10 CDT Marvel Araceli [facility]-23090 Level 3 Est. Patient 08:20:05 CDT Alina Castaneda MD [facility]-08193 Level 3 Est. Patient 15:17:18 CDT Alina Castaneda MD [facility]-71841 Level 3 Est. Patient 14:25:36 CONTACT ASSEMBLER Marvel Charles [facility]-90987 Level 3 Est. Patient 10:09:15 CONTACT ASSEMBLER Marvel Charles [facility]-38106 Level 3 Est. Patient 21:28:43 CDT Alina Castaneda MD [facility]-71901 Level 3 Est. Patient 15:20:11 CDT Marvel Araceli [facility]-99884 Level 4 Est. Patient 19:08:12 CDT Alina Castaneda MD [facility]-88018 Level 3 Est. Patient 15:06:39 CDT Brook[place] Araceli [facility]-39237 Level 4 Est. Patient 17:48:15 CDT Alina Castaneda MD [facility]17500 Level 3 Est. Patient 14:53:49 CDT Alina Castaneda MD [facility]63454 Level 3 Est. Patient 09:35:16 CDT Alina Castaneda MD [facility]-77783 Level 3 Est. Patient 12:23:22 CDT Alina Castaneda MD [facility]-27140 Level 3 Est. Patient 16:19:15 CDT Alina Castaneda MD Department [facility]-13427 Level 3 Est. Patient 21:39:56 CONTACT ASSEMBLER Alina Castaneda MD [facility]-12746 Level 4 Est. Patient 14:12:56 CONTACT ASSEMBLER Alina Castaneda MD [facility]-04987 Level 2 Est. Patient 15:34:57 CONTACT ASSEMBLER Alina Castaneda MD [facility]-91794 Level 3 Est. Patient 12:17:04 CONTACT ASSEMBLER Alina Castaneda MD [facility]-34404 Level 3 Est. Patient 09:18:18 CONTACT ASSEMBLER [facility]-17233 Level 2 Est. Patient 21:50:24 CDT Alina Castaneda MD [facility]-68487 Level 3 Est. Patient 09:17:28 CDT [facility]-64991 Level 4 Est. Patient 18:54:02 CDT Alina Castaneda MD [facility]-23726 Level 3 Est. Patient 10:47:10 CDT Alina Castaneda MD [facility]-50592 Level 3 Est. Patient 09:22:20 CDT [facility]-60290 Level 3 Est. Patient 16:39:43 CDT [facility]-99114 Level 3 Est. Patient 16:05:16 CDT Alina Castaneda MD [facility] CPT-00843 Level 3 Est. Patient 00:29:15 CDT Alina Castaneda MD [facility] CPT-14537 Level 3 Est. Patient 10:49:22 CONTACT ASSEMBLER [facility] CPT-06910 Level 3 Est. Patient 21:30:19 CONTACT ASSEMBLER Alina Castaneda MD [facility] CPT-68623 Level 4 Est. Patient 17:04:11 [facility] Level 3 Est. Patient 15:34:11 [facility]35084 Level 2 Est. Patient 12:51:58 CONTACT ASSEMBLER Alina Castaneda MD [facility] CPT-14735 Level 3 Est. Patient 13:20:01 CONTACT ASSEMBLER Alina Castaneda MD [facility] CPT-24117 Level 3 Est. Patient 09:23:35 CDT Alina Castaneda MD [facility] Procedures Code Procedure Name Date Entry Date Standard Description CPT-67162 Bladder Scan 14:39:01 CONTACT ASSEMBLER CPT-TCMM Transitional Care Mgmt-Moderate 10:30:19 CONTACT ASSEMBLER CPT-90283 Bladder Scan 12:36:44 CDT CPT-19323 Bladder Scan 21:54:06 CDT CPT-G0008 Administration of Influenza Virus Vaccine 13:05:26 CDT CPT-05280 Fluzone Quadrivalent Intramuscular Suspension 0.5 ML 13: 05:26 CDT CPT-39707 Administration single or combination vaccine inc oral 11 :49:51 CDT CPT-28348 Pneumovax 11:49:51 CDT CPT-70185 Ribs unilateral 2V 12:37:22 CONTACT ASSEMBLER CPT-52272 Chest 2V Frontal and Lat 17:15:26 CDT CPT-71760 Abx/Therapy Injection 18:54:02 CDT CPT-J0696 Rocephin 1000 mg (Ceftriaxone) 16:00:32 CDT CPT-02616 Chest 2V Frontal and Lat 15:26:45 CDT CPT-85202 Chest 2V Frontal and Lat 10:23:27 CDT CPT-47399 Venipuncture Draw Fee 10:11:00 CDT CPT-22700 Administration single or combination vaccine inc oral 11 :56:38 CDT CPT-73596 Influenza split virus > age 3 11:56:38 CDT CPT-25690 Venipuncture Draw Fee 08:49:54 CONTACT ASSEMBLER CPT-37603 EKG Trac and Interp 17:54:19 CONTACT ASSEMBLER
--- OUTSIDE RECORDS SUMMARY | 2018-07-02 13:54 | XMS REPORT | Clinical Summary ---
Author Author Admin, TERELL Organization [facility] Address Unknown Phone Unavailable Allergies, Adverse [...] MELLITUS, TYPE II, UNCONTROLLED 250.02 Resolved Marvel AMRROQUIN Diabetes mellitus without mention of complication , 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 Erazo [facility] Benign paroxysmal positional vertigo Vertigo, benign paroxysmal position 386.11 Inactive Mima Erazo [facility] ADMINISTRATOR Benign paroxysmal positional vertigo High-risk sexual behavior V69.2 Active Alina Castaneda MD PhD High-risk sexual behavior Erectile dysfunction 302.72 Active Alina Castaneda MD PhD Psychosexual dysfunction with inhibited sexual excitement Constipation 564.00 Active Alina Castaneda MD PhD Constipation, unspecified Skin lesion 709.9 Active Alina Castaneda MD PhD Unspecified disorder of skin and subcutaneous tissue Malaise and fatigue 780.79 Active Cherelle Speaks [facility]AC[facility] ADMINISTRATOR Other malaise and fatigue Diarrhea 787.91 Active Cherelle Speaks [facility]ACILITY ADMINISTRATOR Diarrhea PHARYNGITIS 462 Active Cherelle Speaks [facility] FACILITY ADMINISTRATOR Acute pharyngitis Colitis 558.9 Active Mima Erazo [facility] ADMINISTRATOR Other and unspecified noninfectious gastroenteritis and colitis WOUND, OPEN, NOSE ICD-873.20 Inactive Alina Castaneda MD PhD DIABETES, TYPE 2 ICD-250.00 Inactive Alina Castaneda MD PhD HYPERTENSION ICD-401.9 Inactive Alina Castaneda MD PhD URI ICD-465.9 Inactive Alina Castaneda MD PhD CHEST PAIN ICD-786.50 Inactive Alina Castaneda MD PhD FH STROKE ICD-V17.1 Inactive Marvel Charles [employer]IL[employer]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 OPERATOR FATIGUE ICD-780.79 Inactive Alina Castaneda MD PhD [...] Generic Name NDC Status Provider Patient Instruction LOMOTIL 2.5-0.025 MG ORAL TABS take 1-2 tabs PO after each stool, no more than 8 in 24 hours DIPHENOXYLATE-ATROPINE 54360688238 Active Grace Azam RMA Active FLUVOXAMINE MALEATE 100 MG ORAL TABS take one tab every AM et HS, and take 1/ 2 tab at noon FLUVOXAMINE MALEATE 88531064166 Active Grace Azam RMA Active METOPROLOL SUCCINATE 100 MG PC50N-CIC 1 by mouth daily for blood pressure METOPROLOL SUCCINATE 41062100680 No Longer Active Grace Azam RMA Active METFORMIN HCL ER 500 MG [id number]-KJG Take three tablets by mouth everyday METFORMIN HCL 55184524764 No Longer Active Grace Azam RMA Active LOVAZA 1 GM CAPS 4 daily (for triglycerides) OMEGA-3- ACID ETHYL ESTERS 76165501133 No Longer Active Grace Azam RMA Active TRAZODONE HCL 100 MG ORAL TABS 1 tab by mouth for sleep TRAZODONE HCL 48665005946 No Longer Active Grace Azam RMA Active NOVOFINE 32G X 6 MM MISC use one four times per day INSULIN PEN NEEDLE 15370617973 No Longer Active Grace Nascimento RMA Active BACTROBAN 2 % CREAM Apply to affected area BID for up to 10 days MUPIROCIN CALCIUM 12221560783 No Longer Active Grace Nascimento RMA Active ZOFRAN 4 MG TABS 1 po q4hr PRN Nausea ONDANSETRON HCL 49738146398 Active Salina Han RMA Active KEFLEX 500 MG CAP 1 po BID x 7 days CEPHALEXIN 95045039784 No Longer Active Cherelle Speaks [facility] FACILITY ADMINISTRATOR Active FLUVOXAMINE MALEATE 100 MG TABS Take one (1) tablet by mouth am, 1/2 at noon FLUVOXAMINE MALEATE 73206656344 No Longer Active Mima Vadimum [facility]AC[facility] ADMINISTRATOR Active CORICIDIN HBP CONGESTION/COUGH 10-200 MG ORAL CAPS Take as directed on box as needed for cold/flu symptoms DEXTROMETHORPHAN-GUAIFENESIN 12111591716 Active Cherelle Speaks [facility] CARE FACILITY ADMINISTRATOR Active OMEGA-3 300 MG ORAL CAPS 4 caps by mouth daily OMEGA-3 FATTY ACIDS 35345182791 Active Cherelle Speaks [facility] FACILITY ADMINISTRATOR Active FLUVOXAMINE MALEATE 100 MG ORAL TABS Take 1/2 tab at noon FLUVOXAMINE MALEATE 91520920105 No Longer Active Cherelle Speaks [facility] CARE FACILITY ADMINISTRATOR Active [facility] LUBRICANT EYE DROPS 0.4-0.3 % OPHTH SOLN POLYETHYL GLYCOL-PROPYL GLYCOL 28220613098 Active Mima Yokum [facility]AC[facility] ADMINISTRATOR Active CLONAZEPAM 1 MG TABS 1/2 pill by mouth three times daily CLONAZEPAM 12995434300 Active Alina Castaneda MD PhD Active MIRALAX POWD 17g by mouth daily, for constipation POLYETHYLENE GLYCOL 3350 63511130685 Active Alina Castaneda MD PhD Active HYDROCODONE-ACETAMINOPHEN 5-325 MG TABS 2 tabs by mouth three times daily for pain HYDROCODONE-ACETAMINOPHEN 62821250696 Active Mima [facility]ok[facility] FACILITY ADMINISTRATOR Active HUMALOG KWIKPEN 100 UNIT/ML SC SOPN 20 units with breakfast, 10 units with lunch, 10 units with dinner, for diabetes INSULIN LISPRO (HUMAN ) 48121228300 Active Alina Castaneda MD PhD Active LEVEMIR FLEXTOUCH 100 UNIT/ML SC SOPN 70 units SQ each evening, for diabetes INSULIN DETEMIR 41000183525 Active Alina Castaneda MD PhD Active LATUDA 120 MG ORAL TABS 1 pill by mouth nightly LURASIDONE HCL 96681114500 Active Alina Castaneda MD PhD Active COLACE 100 MG CAPS 1 pill by mouth twice daily, for constipation DOCUSATE SODIUM 54273731316 Active Alina Castaneda MD PhD Active TRUETEST TEST STRP check blood sugars 3x/day GLUCOSE BLOOD 24151369112 Active Marvel MENDOZAP Active ACCU-CHEK ROSA UZMA Use device to check blood sugars BLOOD GLUCOSE MONITORING SUPPL 15740211113 No Longer Active Marvel MARROQUIN Active ACCU-CHEK ROSA INVITR STRP use strips with device to check blood sugars 3 times daily GLUCOSE BLOOD 95267194556 No Longer Active Marvel MARROQUIN Active VERAPAMIL HCL ER 180 MG ORAL CR-TABS 1 pill by mouth twice daily, for migraine prevention VERAPAMIL HCL 14269687417 Active Alina Castaneda MD PhD Active CYCLOBENZAPRINE HCL 10 MG TABS 1 tablet by mouth three times daily, scheduled CYCLOBENZAPRINE HCL 62708550662 No Longer Active Alina Castaneda MD PhD Active HUMALOG 100 UNIT/ML SOLN Take 20 units with breakfast, 10u with lunch and suppetr. INSULIN LISPRO (HUMAN) 21772288925 No Longer Active Alina Castaneda MD PhD Active TRUETEST TEST STRP check sugars 4x/day GLUCOSE BLOOD 44515603461 No Longer Active Alina Castaneda MD PhD Active MORPHINE SULFATE 30 MG TABS 1 pill by mouth twice daily, for pain MORPHINE SULFATE 88636736627 Active Mima Erazo [facility] ADMINISTRATOR Active ACYCLOVIR 400 MG ORAL TABS 1 pill three times daily x 5 days, for cold sore outbreak ACYCLOVIR 28960383527 No Longer Active Alina Castaneda MD PhD Active PENICILLIN V POTASSIUM 500 MG TABS 1 pill by mouth three times daily PENICILLIN V POTASSIUM 84322911701 No Longer Active Alina Castaneda MD PhD Active UROXATRAL 10 MG [id number] Take 1 tablet by mouth daily ALFUZOSIN HCL 94770156420 No Longer Active Alina Castaneda MD PhD Active THIOTHIXENE 5 MG CAPS by mouth twice a day THIOTHIXENE 03210967690 No Longer Active Alina Castaneda MD PhD Active ZYPREXA 7.5 MG TABS 1 at HS OLANZAPINE 17943438731 No Longer Active Alina Castaneda MD PhD Active BD INSULIN SYRINGE 28G X 1/2" 1 ML MISC 1 four times per day INSULIN SYRINGE-NEEDLE U-100 99726569944 Active Brooksnivia Charles [employer]IL[employer] M[employer]INE OPERATOR Active TOLTERODINE TARTRATE 2 MG TABS 1 pill twice daily, for bladder TOLTERODINE TARTRATE 29786466614 Active Alina Castaneda MD PhD Active DETROL LA 4 MG VM56F-FIH Take 1 tablet by mouth daily TOLTERODINE TARTRATE 17114160111 No Longer Active Alina Castaneda MD PhD Active TERESE CONTOUR TEST STRP monitor blood sugars 3x/day GLUCOSE BLOOD 38382283347 No Longer Active Alina Castaneda MD PhD Active EQL TRUETEST TEST STRP Test blood sugar TID GLUCOSE BLOOD 61283107665 No Longer Active Alina Castaneda MD PhD Active FLUTICASONE PROPIONATE 50 MCG/ACT SUSP 2 sprays each nostril qDay x 30 days FLUTICASONE PROPIONATE 01928807089 No Longer Active Alina Castaneda MD PhD Active IBUPROFEN 200 MG TABS 1 Q 6 hr. PRN IBUPROFEN 77767516918 No Longer Active Alina Castaneda MD PhD Active NIACIN ER 500 MG CR-TABS 4 qHS (for triglycerides) NIACIN 88455429009 No Longer Active Alina Castaneda MD PhD Active ALFUZOSIN HCL ER 10 MG CT90D-KPG 1 tablet daily ALFUZOSIN HCL 63932473737 Active Vanessa Hickey MD Active SAPHRIS 5 MG SUBL by mouth twice a day ASENAPINE MALEATE 83642953830 No Longer Active Maliheh Ziglari [employer]ILLE MACHINE OPERATOR Active ACETAMINOPHEN 500 MG TABS 2 Q 6 hr. PRN ACETAMINOPHEN 22966425957 No Longer Active Maliheh Ziglari [employer]ENILLE MACHINE OPERATOR Active ORPHENADRINE CITRATE ER 100 MG LN51E-CRM 1 every 12 hr. as needed ORPHENADRINE CITRATE 31558000163 No Longer Active Alina Castaneda MD PhD Active NIACIN CR 500 MG CR-TABS 2 qHS NIACIN 77062918898 No Longer Active Alina Castaneda MD PhD Active AMOXICILLIN 500 MG CAPS 2 po BID x 10 days AMOXICILLIN 88216856934 No Longer Active Alina Castaneda MD PhD Active HYDROCODONE-ACETAMINOPHEN 7.5-325 MG TABS 1 four times a day as needed for pain HYDROCODONE-ACETAMINOPHEN 84636594809 No Longer Active Alina Castaneda MD PhD Active DOXEPIN HCL 10 MG CAPS Take 1 tablet by mouth daily DOXEPIN HCL 97324682649 No Longer Active Salina ROJAS Active NAVANE 10 MG CAPS 1/2 tablet twice a day THIOTHIXENE No Longer Active Salina ROJAS Active CYCLOBENZAPRINE HCL 10 MG TABS 1/2 tablet by mouth every 8 hours as needed for muscle spasms CYCLOBENZAPRINE HCL 73680570080 No Longer Active Alina Castaneda MD PhD Active BACTROBAN 2 % CREAM apply to ear and nose twice daily MUPIROCIN CALCIUM 08033070217 No Longer Active Alina Castaneda MD PhD Active HYDROCODONE-ACETAMINOPHEN 5-325 MG TABS take one tablet by mouth every four hours as needed for pain HYDROCODONE-ACETAMINOPHEN 70891527229 No Longer Active Alina Castaneda MD PhD Active ZOLPIDEM TARTRATE 10 MG TABS take at bedtime ZOLPIDEM TARTRATE 63987027003 Active Alina Castaneda MD PhD Active ZYPREXA 5 MG TABS take one tablet by mouth every evening OLANZAPINE 97699738877 No Longer Active Alina Castaneda MD PhD Active ALBUTEROL SULFATE 0.083 % NEBU SOLN one vial per nebulizer TID and PRN cough/ soa ALBUTEROL SULFATE 22976650887 No Longer Active Alina Castaneda MD PhD Active GUAIFENESIN 600 MG AZ29C-BKR 1 tablet by mouth twice daily if needed for cough GUAIFENESIN 01263751837 No Longer Active Marvel MARROQUIN Active AZITHROMYCIN 500 MG SOLR 1 po q day AZITHROMYCIN 66889817343 No Longer Active Alina Castaneda MD PhD Active PROMETHAZINE-CODEINE 6.25-10 MG/5ML SYRP 1 tsp po q 6 hours prn cough PROMETHAZINE-CODEINE 27664003581 No Longer Active Alina Castaneda MD PhD Active CEFDINIR 300 MG CAPS by mouth twice a day CEFDINIR 55593258515 No Longer Active Alina Castaneda MD PhD Active METFORMIN HCL 500 MG PT72N-BMS Take 3 tablets by mouth everyday METFORMIN HCL 01198880833 No Longer Active Alina Castaneda MD PhD Active LEVEMIR 100 UNIT/ML SOLN 90 units SQ qHS INSULIN DETEMIR 55588211066 No Longer Active Marvel MARROQUIN Active TOPROL XL 100 MG JT47H-UIZ 1 @ HS METOPROLOL SUCCINATE 09666404130 No Longer Active Marvel MARROQUIN Active ALLOPURINOL 300 MG TABS Take one by mouth daily ALLOPURINOL 07642329092 Active Alina Castaneda MD PhD Active ZYPREXA 10 MG TABS Take one by mouth daily OLANZAPINE 56463641133 No Longer Active Alina Castaneda MD PhD Active NOVOLOG 100 UNIT/ML SOLN 40 units with every meal INSULIN ASPART 81617099738 No Longer Active Alina Castaneda MD PhD Active VERAPAMIL HCL CR 120 MG TAB CR 1 qPM VERAPAMIL HCL 81129864244 No Longer Active Salina Han RMA Active ZYPREXA 15 MG TABS Take 1 tablet by mouth daily OLANZAPINE 63044238521 No Longer Active Brooksjohn Charles [employer]ENILLE MACHINE OPERATOR Active LISINOPRIL 20 MG TABS 1 BID LISINOPRIL 43440943160 Active Alina Castaneda MD PhD Active ALBUTEROL SULFATE (2.5 MG/3ML) 0.083% NEBU 1 neb tid and prn cough ALBUTEROL SULFATE 33035219090 No Longer Active Alina Castaneda MD PhD Active TRAVATAN Z 0.004 % SOLN 1 gtt each eye daily TRAVOPROST 96316507897 Active CRYSTAL Suarez Active LANTUS 100 UNIT/ML SOLN 60 units sq q hs INSULIN GLARGINE 88688524344 No Longer Active CRYSTAL Suarez Active ALBUTEROL SULFATE (2.5 MG/3ML) 0.083% NEBU 1 neb tid and prn cough ALBUTEROL SULFATE (2.5 MG/3ML) 0.083% NEBU 857975 ALBUTEROL SULFATE Inactive ZYPREXA 15 MG TABS Take 1 tablet by mouth daily ZYPREXA 15 MG TABS 617928 OLANZAPINE Inactive VERAPAMIL HCL CR 120 MG TAB CR 1 qPM VERAPAMIL HCL CR 120 MG TAB CR VERAPAMIL HCL Inactive ZYPREXA 10 MG TABS Take one by mouth daily ZYPREXA 10 MG TABS 916471 OLANZAPINE Inactive TOPROL XL 100 MG XM98H-DNN 1 @ HS TOPROL XL 100 MG QY88P-IZF METOPROLOL SUCCINATE Inactive LEVEMIR 100 UNIT/ML SOLN 90 units SQ qHS LEVEMIR 100 UNIT/ML SOLN INSULIN DETEMIR Inactive PROMETHAZINE-CODEINE 6.25-10 MG/5ML SYRP 1 tsp po q 6 hours prn cough PROMETHAZINE-CODEINE 6.25-10 MG/5ML SYRP 629546 PROMETHAZINE- CODEINE Inactive GUAIFENESIN 600 MG SN12E-JAS 1 tablet by mouth twice daily if needed for cough GUAIFENESIN 600 MG VC67J-CLT GUAIFENESIN Inactive ALBUTEROL SULFATE 0.083 % NEBU SOLN one vial per nebulizer TID and PRN cough/ soa ALBUTEROL SULFATE 0.083 % NEBU SOLN 826983 ALBUTEROL SULFATE Inactive ZYPREXA 5 MG TABS take one tablet by mouth every evening ZYPREXA 5 MG TABS 599863 OLANZAPINE Inactive HYDROCODONE-ACETAMINOPHEN 5-325 MG TABS take one tablet by mouth every four hours as needed for pain HYDROCODONE-ACETAMINOPHEN 5-325 MG TABS 991203 HYDROCODONE-ACETAMINOPHEN Inactive BACTROBAN 2 % CREAM apply to ear and nose twice daily BACTROBAN 2 % CREAM 282739 MUPIROCIN CALCIUM Inactive CYCLOBENZAPRINE HCL 10 MG TABS 1/2 tablet by mouth every 8 hours as needed for muscle spasms CYCLOBENZAPRINE HCL 10 MG TABS 524730 CYCLOBENZAPRINE HCL Inactive NAVANE 10 MG CAPS 1/2 tablet twice a day NAVANE 10 MG CAPS THIOTHIXENE Inactive DOXEPIN HCL 10 MG CAPS Take 1 tablet by mouth daily DOXEPIN HCL 10 MG CAPS 8645861 DOXEPIN HCL Inactive HYDROCODONE-ACETAMINOPHEN 7.5-325 MG TABS 1 four times a day as needed for pain HYDROCODONE-ACETAMINOPHEN 7.5-325 MG TABS 999294 HYDROCODONE-ACETAMINOPHEN Inactive NIACIN CR 500 MG CR-TABS 2 qHS NIACIN CR 500 MG CR- TABS NIACIN Inactive ORPHENADRINE CITRATE ER 100 MG MR94T-GCW 1 every 12 hr. as needed ORPHENADRINE CITRATE ER 100 MG [id number]-QXO ORPHENADRINE CITRATE Inactive ACETAMINOPHEN 500 MG TABS 2 Q 6 hr. PRN ACETAMINOPHEN 500 MG TABS 218125 ACETAMINOPHEN Inactive SAPHRIS 5 MG SUBL by mouth twice a day SAPHRIS 5 MG SUBL ASENAPINE MALEATE Inactive NIACIN ER 500 MG CR-TABS 4 qHS (for triglycerides) NIACIN ER 500 MG CR-TABS NIACIN Inactive IBUPROFEN 200 MG TABS 1 Q 6 hr. PRN IBUPROFEN 200 MG TABS 540612 IBUPROFEN Inactive FLUTICASONE PROPIONATE 50 MCG/ACT SUSP 2 sprays each nostril qDay x 30 days FLUTICASONE PROPIONATE 50 MCG/ACT SUSP 652255 FLUTICASONE PROPIONATE Inactive EQL TRUETEST TEST STRP Test blood sugar TID EQL TRUETEST TEST STRP GLUCOSE BLOOD Inactive TERESE CONTOUR TEST STRP monitor blood sugars 3x/day TERESE CONTOUR TEST STRP GLUCOSE BLOOD Inactive DETROL LA 4 MG TE39E-KMT Take 1 tablet by mouth daily DETROL LA 4 MG NM63V-RPS TOLTERODINE TARTRATE Inactive ZYPREXA 7.5 MG TABS 1 at HS ZYPREXA 7.5 MG TABS 442898 OLANZAPINE Inactive THIOTHIXENE 5 MG CAPS by mouth twice a day THIOTHIXENE 5 MG CAPS 775032 THIOTHIXENE Inactive UROXATRAL 10 MG QV39Q-GCD Take 1 tablet by mouth daily UROXATRAL 10 MG TY82H-RCG ALFUZOSIN HCL Inactive ACYCLOVIR 400 MG ORAL TABS 1 pill three times daily x 5 days, for cold sore outbreak ACYCLOVIR 400 MG ORAL TABS 685226 ACYCLOVIR Inactive TRUETEST TEST STRP check sugars 4x/day TRUETEST TEST STRP GLUCOSE BLOOD Inactive HUMALOG 100 UNIT/ML SOLN Take 20 units with breakfast, 10u with lunch and suppetr. HUMALOG 100 UNIT/ML SOLN INSULIN LISPRO ( HUMAN) Inactive CYCLOBENZAPRINE HCL 10 MG TABS 1 tablet by mouth three times daily, scheduled CYCLOBENZAPRINE HCL 10 MG TABS 702195 CYCLOBENZAPRINE HCL Inactive ACCU-CHEK ROSA INVITR STRP use strips with device to check blood sugars 3 times daily ACCU-CHEK ROSA INVITR STRP GLUCOSE BLOOD Inactive ACCU-CHEK ROSA UZMA Use device to check blood sugars ACCU-CHEK ROSA UZMA BLOOD GLUCOSE MONITORING SUPPL Inactive FLUVOXAMINE MALEATE 100 MG ORAL TABS Take 1/2 tab at noon FLUVOXAMINE MALEATE 100 MG ORAL TABS 799465 FLUVOXAMINE MALEATE Inactive FLUVOXAMINE MALEATE 100 MG TABS Take one (1) tablet by mouth am, 1/2 at noon FLUVOXAMINE MALEATE 100 MG TABS 038032 FLUVOXAMINE MALEATE Inactive BACTROBAN 2 % CREAM Apply to affected area BID for up to 10 days BACTROBAN 2 % CREAM 819851 MUPIROCIN CALCIUM Inactive NOVOFINE 32G X 6 MM MISC use one four times per day NOVOFINE 32G X 6 MM MISC INSULIN PEN NEEDLE Inactive TRAZODONE HCL 100 MG ORAL TABS 1 tab by mouth for sleep TRAZODONE HCL 100 MG ORAL TABS 227921 TRAZODONE HCL Inactive LOVAZA 1 GM CAPS 4 daily (for triglycerides) LOVAZA 1 GM CAPS 175525 EGDQU-1-NYHK ETHYL ESTERS Inactive METFORMIN HCL ER 500 MG ZK74Q-ZBZ Take three tablets by mouth everyday METFORMIN HCL ER 500 MG UT29P-SRP METFORMIN HCL Inactive METOPROLOL SUCCINATE 100 MG BL13J-RCE 1 by mouth daily for blood pressure METOPROLOL SUCCINATE 100 MG NC13E-FNP METOPROLOL SUCCINATE Inactive CEFDINIR 300 MG CAPS by mouth twice a day CEFDINIR 300 MG CAPS 574540 CEFDINIR Inactive AZITHROMYCIN 500 MG SOLR 1 po q day AZITHROMYCIN 500 MG SOLR 340573 AZITHROMYCIN Inactive AMOXICILLIN 500 MG CAPS 2 po BID x 10 days AMOXICILLIN 500 MG CAPS 832203 AMOXICILLIN Inactive PENICILLIN V POTASSIUM 500 MG TABS 1 pill by mouth three times daily PENICILLIN V POTASSIUM 500 MG TABS 765022 PENICILLIN V POTASSIUM Inactive KEFLEX 500 MG CAP 1 po BID x 7 days KEFLEX 500 MG CAP 350777 CEPHALEXIN Inactive Immunizations Vaccine Administration Date Value [...] Fluvirin, Fluarix, Agriflu(>=18 yo)) Fluzone (>3 yrs.) [[id number]] Influenza, seasonal, injectable pneumococcal immunization administered Pneumovax [...] HGBA1C - Chemistry sodium, serum 131 mmol/L 224-540 1149/12/30 potassium, serum 5.0 mmol/L 3.5-5.2 chloride, serum 95 mmol/L 98-107 carbon dioxide, venous blood 26.7 mmol/L 21.0-32.0 blood glucose 112 mg/dL 65-110 calcium, serum 9.2 mg/dL 8.5-10.1 urea nitrogen, blood 12 mg/dL 7-18 creatinine, serum 1.10 mg/dL 0.60-1.30 hemoglobin A1C, blood, as % of total hemoglobin 5.8 % 4.3-6.0 Lab Report: Basic Metabolic Panel, HGBA1C, MICROALBUMIN - Chemistry sodium, serum 137 mmol/L 266-039 3311/05/19 potassium, serum 5.2 mmol/L 3.5-5.2 chloride, serum [...] Panel - Chemistry sodium, serum 137 mmol/L 751-741 9722/10/12 potassium, serum 4.8 mmol/L 3.5-5.2 chloride, serum 102 mmol/L 98-107 carbon dioxide, venous blood 27.6 mmol/L 21.0-32.0 blood glucose 168 mg/dL 65-110 calcium, serum 9.0 mg/dL 8.5-10.1 urea nitrogen, blood 15 mg/dL 7-18 creatinine, serum 1.04 mg/dL 0.55-1.30 sodium, serum 138 mmol/L 742-231 8194/11/11 potassium, serum 4.7 mmol/L 3.5-5.2 chloride, serum [...] % 11.6-14.8 platelet count 252 10^3/MM^3 10*3/mm3 209-761 8642/10/12 leukocyte count, blood 5.8 10^3/MM^3 10*3/mm3 4.6-10.2 [...] 240 10^3/MM^3 10*3/mm3 142-424 Lab Report: Chlamydia/GC APTIMA/86054, HIV-1/2 Agn/Dominga/53893, RPR (DX) W ... - Chemistry hepatitis B surface antigen NON-REACTIVE NON-REACTIVE Lab Report: Chlamydia/GC APTIMA/51217, HIV-1/2 Agn/Dominga/48486, RPR (DX) W ... - Lab chlamydia DNA probe NOT DETECTED NOT DETECTED Lab Report: Chlamydia/GC APTIMA/76758, HIV-1/2 Agn/Dominga/46578, RPR (DX) W ... - Microbiology Neisseria gonorrhoeae DNA probe NOT DETECTED NOT DETECTED Lab Report: Chlamydia/GC APTIMA/95126, HIV-1/2 Agn/Dominga/65488, RPR (DX) W ... - Serology rapid plasma reagin antibody titer NON-REACTIVE NON-REACTIVE Lab Report: HGBA1C - Chemistry hemoglobin A1C, blood, as % of total hemoglobin 6.1 % 4.3-6.0 Lab Report: Lipid Panel, HEPATIC PANEL, MICROALBUMIN, CBC - Chemistry cholesterol, serum 131 mg/dL 483-574 4284/06/03 triglyceride, serum, fasting 383 mg/dL 30-200 HDL [...] 4.7 mg/dL 2.6-7.2 cholesterol, serum 142 mg/dL 468-366 3814/06/26 triglyceride, serum, fasting 272 mg/dL 30-200 HDL [...] negative Encounters Code Encounter Date Provider Facility CPT-99721 Level 3 Est. Patient 14:39:00 ANIMAL BEHAVIOURIST Vanessa Hickey MD [facility] CPT-37853 Level 2 Est. Patient 18:43:34 CDT Mima Erazo [facility] CPT-95373 Level 3 Est. Patient 16:22:09 CDT Cherelle Avila [facility]-03452 Level 4 Est. Patient 17:55:14 CDT Mima Erazo [facility] CPT-99044 Level 2 Est. Patient 17:13:21 CDT Alina Castaneda MD [facility]91343 Level 3 Est. Patient 14:46:15 CDT Vanessa Hickey MD [facility]-63827 Level 3 Est. Patient 09:34:56 CDT Alina Castaneda MD [facility]67388 Level 3 Est. Patient 21:40:19 CDT Mima Erazo [facility]-79854 Level 3 Est. Patient 09:26:40 CDT Marvel Charles [facility]-93258 Level 3 Est. Patient 12:36:43 CDT Vanessa Hickey MD [facility]81540 Level 3 Est. Patient 12:57:49 CDT Vanessa Hickey MD [facility]-25956 Level 3 Est. Patient 00:28:25 CDT Alina Castaneda MD [facility]-57975 Level 2 Est. Patient 12:52:14 CDT Alina Castaneda MD [facility]09483 Level 3 Est. Patient 11:51:18 ANIMAL BEHAVIOURIST Alina Castaneda MD [facility]83957 Level 3 Est. Patient 10:09:22 ANIMAL BEHAVIOURIST Alina Castaneda MD [facility]77720 Level 3 Est. Patient 14:36:26 ANIMAL BEHAVIOURIST Marvel Charles [facility]01346 Level 3 Est. Patient 13:34:47 ANIMAL BEHAVIOURIST Alina Castaneda MD PhD [facility][note 3]-20631 Level 3 Est. Patient 19:52:08 ANIMAL BEHAVIOURIST Alina Castaneda MD [facility]-69398 Level 3 Est. Patient 10:01:51 ANIMAL BEHAVIOURIST Marvel Gurdeepajayestela [facility]-37393 Level 3 Est. Patient 21:54:06 CDT Vanessa Hickey MD [facility]-69495 Level 3 Est. Patient 08:54:46 CDT Alina Castaneda MD [facility]-13701 Level 3 Est. Patient 09:32:11 CDT [facility]615[facility] Level 3 Est. Patient 12:02:49 CDT Alina Castaneda MD [facility]-87968 Level 3 Est. Patient 19:17:33 CDT Alina Castaneda MD [facility]-90076 Level 3 Est. Patient 13:19:10 CDT Brooksjohn Charles [facility]-43934 Level 3 Est. Patient 08:20:05 CDT Alina Castaneda MD [facility]-66182 Level 3 Est. Patient 15:17:18 CDT Alina Castaneda MD [facility]-97437 Level 3 Est. Patient 14:25:36 ANIMAL BEHAVIOURIST Brookslashondanivia Araceli [facility]-91570 Level 3 Est. Patient 10:09:15 ANIMAL BEHAVIOURIST Marvel Araceli [facility]-01367 Level 3 Est. Patient 21:28:43 CDT Alina Castaneda MD [facility]-77191 Level 3 Est. Patient 15:20:11 CDT Marvel Charles [facility] CPT-36814 Level 4 Est. Patient 19:08:12 CDT Alina Castaneda MD [facility]-03085 Level 3 Est. Patient 15:06:39 [facility]-90563 Level 4 Est. Patient 17:48:15 CDT Alina Castaneda MD [facility]-49950 Level 3 Est. Patient 14:53:49 CDT Alina Castaneda MD [facility]-30005 Level 3 Est. Patient 09:35:16 CDT Alina Castaneda MD [facility]-33515 Level 3 Est. Patient 12:23:22 CDT Alina Castaneda MD [facility]-25352 Level 3 Est. Patient 16:19:15 CDT Alina Castaneda MD [facility]-44480 Level 3 Est. Patient 21:39:56 ANIMAL BEHAVIOURIST Alina Castaneda MD [facility]-37416 Level 4 Est. Patient 14:12:56 ANIMAL BEHAVIOURIST Alina Castaneda MD [facility]-45031 Level 2 Est. Patient 15:34:57 ANIMAL BEHAVIOURIST Alina Castaneda MD [facility]-38296 Level 3 Est. Patient 12:17:04 ANIMAL BEHAVIOURIST Alina Castaneda MD [facility]-36368 Level 3 Est. Patient 09:18:18 ANIMAL BEHAVIOURIST Marvel Charles [facility]-80108 Level 2 Est. Patient 21:50:24 CDT Alina Castaneda MD [facility]32088 Level 3 Est. Patient 09:17:28 CDT Marvel Araceli [facility]-67415 Level 4 Est. Patient 18:54:02 CDT Alina Castaneda MD [facility]-69932 Level 3 Est. Patient 10:47:10 CDT Alina Castaneda MD [facility]-33606 Level 3 Est. Patient 09:22:20 CDT Marvel Araceli [facility]-79514 Level 3 Est. Patient 16:39:43 CDT Marvel Araceli [facility]-92192 Level 3 Est. Patient 16:05:16 CDT Alina Castaneda MD [facility]-51640 Level 3 Est. Patient 00:29:15 CDT Alina Castaneda MD [facility]-47178 Level 3 Est. Patient 10:49:22 ANIMAL BEHAVIOURIST [employer] Araceli [facility]-38446 Level 3 Est. Patient 21:30:19 ANIMAL BEHAVIOURIST Alina Castaneda MD [facility]-99058 Level 4 Est. Patient 17:04:11 ANIMAL BEHAVIOURIST [employer] Araceli [facility]-14493 Level 3 Est. Patient 15:34:11 ANIMAL BEHAVIOURIST [employer] Araceli [facility]-16945 Level 2 Est. Patient 12:51:58 ANIMAL BEHAVIOURIST Alina Castaneda MD [facility]-09137 Level 3 Est. Patient 13:20:01 ANIMAL BEHAVIOURIST Alina Castaneda MD [facility]-92857 Level 3 Est. Patient 09:23:35 CDT Alina Castaneda MD [facility] Procedures Code Procedure Name Date Entry Date Standard Description CPT-16121 Bladder Scan 14:39:01 ANIMAL BEHAVIOURIST CPT-TCMM Transitional Care Mgmt-Moderate 10:30:19 ANIMAL BEHAVIOURIST CPT-87576 Bladder Scan 12:36:44 CDT CPT-27503 Bladder Scan 21:54:06 CDT CPT-G0008 Administration of Influenza Virus Vaccine 13:05:26 CDT CPT-33372 Fluzone Quadrivalent Intramuscular Suspension 0.5 ML 13: 05:26 CDT CPT-21058 Administration single or combination vaccine inc oral 11 :49:51 CDT CPT-53265 Pneumovax 11:49:51 CDT CPT-33864 Ribs unilateral 2V 12:37:22 ANIMAL BEHAVIOURIST CPT-22234 Chest 2V Frontal and Lat 17:15:26 CDT CPT-02184 Abx/Therapy Injection 18:54:02 CDT CPT-J0696 Rocephin 1000 mg (Ceftriaxone) 16:00:32 CDT CPT-39922 Chest 2V Frontal and Lat 15:26:45 CDT CPT-66362 Chest 2V Frontal and Lat 10:23:27 CDT CPT-65371 Venipuncture Draw Fee 10:11:00 CDT CPT-75122 Administration single or combination vaccine inc oral 11 :56:38 CDT CPT-74722 Influenza split virus > age 3 11:56:38 CDT CPT-80147 Venipuncture Draw Fee 08:49:54 ANIMAL BEHAVIOURIST CPT-80603 EKG Trac and Interp 17:54:19 ANIMAL BEHAVIOURIST
--- OUTSIDE RECORDS SUMMARY | 2018-07-02 13:56 | XMS REPORT | Clinical Summary ---
Author Author Admin, TERELL Organization [facility] Address Unknown Phone Unavailable Allergies, Adverse 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 Erazo [employer]ET[employer] Benign paroxysmal positional vertigo Vertigo, benign paroxysmal position 386.11 Inactive Mima Erazo [employer] Benign paroxysmal positional vertigo High-risk sexual behavior V69.2 Active Alina Castaneda MD PhD High-risk sexual behavior Erectile dysfunction 302.72 Active Alina Castaneda MD PhD Psychosexual dysfunction with inhibited sexual excitement Constipation 564.00 Active Alina Castaneda MD PhD Constipation, unspecified Skin lesion 709.9 Active Alina Castaneda MD PhD Unspecified disorder of skin and subcutaneous tissue Malaise and fatigue 780.79 Active Cherelle Speaks [employer] Other malaise and fatigue Diarrhea 787.91 Active Cherelle Speaks [employer]ER Diarrhea PHARYNGITIS 462 Active Cherelle Speakluciana [employer]ETCH MAKER Acute pharyngitis Colitis 558.9 Active Mima Erazo [employer] Other and unspecified noninfectious gastroenteritis and colitis DIABETES, TYPE 2 ICD-250.00 Inactive Alina Castaneda MD PhD URI ICD-465.9 Inactive Alina Castaenda MD PhD HYPERTENSION ICD-401.9 Inactive Alina Castaneda MD PhD WOUND, OPEN, NOSE ICD-873.20 Inactive Alina Castaneda MD PhD FH STROKE ICD-V17.1 Inactive Marvel MARROQUIN DIABETES MELLITUS, TYPE II, UNCONTROLLED ICD-250.02 Inactive Marvel MARROQUIN UNSPECIFIED TACHYCARDIA ICD-785.0 Inactive Alina Castaneda MD PhD CHEST PAIN ICD-786.50 Inactive Alina Castaneda MD PhD PROBLEMS RELATED TO HIGH-RISK SEXUAL BEHAVIOR ICD-V69.2 Inactive Alina Castaneda MD PhD CHEST COUGH ICD-786.2 Inactive Alina Castaneda MD PhD SINUSITIS, ACUTE ICD-461.9 Inactive Alina Castaneda MD PhD BRONCHITIS, ACUTE ICD-466.0 Inactive Alina Castaneda MD PhD FATIGUE ICD-780.79 Inactive Alina Castaneda MD PhD RIB PAIN, RIGHT SIDED ICD-786.50 Inactive Alina Castaneda MD PhD SKIN LESION ICD-709.9 Inactive Alina Castaneda MD PhD ABNORMAL HEART RHYTHMS ICD-427.9 Roro Castaneda MD PhD DIABETIC HYPOGLYCEMIA, TYPE II ICD-250.80 Inactive Marvel 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 Inactive Alina Castaneda MD PhD PNEUMONIA, ORGANISM UNSPECIFIED ICD-486 Inactive Alina Castaneda MD PhD SPECIAL SCREENING FOR MALIGNANT NEOPLASM OF PROSTATE ICD-V76.44 Inactive Alina Castaneda MD PhD SINUSITIS, ACUTE ICD-461.9 Roro Castaneda MD PhD Diabetes mellitus, type II, uncontrolled ICD-250.02 Inactive Alina Castaneda MD PhD Confusion ICD-298.9 [...] MISC 4 a day INSULIN PEN NEEDLE 76713243804 Active Marvel MARROQUIN Active AMITIZA 24 MCG ORAL CAPS Take one capsule BID for constipation LUBIPROSTONE 42021148472 Active Mima Erazo APRN Active LEVEMIR FLEXTOUCH 100 UNIT/ML SC SOPN 75 units SQ each evening, for diabetes INSULIN DETEMIR 72376805470 Active CRYSTAL Rodrigues Active TRUEPLUS LANCETS 30G MISC 3 a day LANCETS 61173780480 Active Marvel MARROQUIN Active TOLTERODINE TARTRATE 2 MG TABS 1 pill twice daily, for bladder TOLTERODINE TARTRATE 38913552827 No Longer Active Vanessa Hickey MD Active AMITIZA 24 MCG ORAL CAPS Take one capsule BID for constipation. LUBIPROSTONE 85429158295 No Longer Active Vanessa Hickey MD Active LOMOTIL 2.5-0.025 MG ORAL TABS take 1-2 tabs PO after each stool, no more than 8 in 24 hours DIPHENOXYLATE-ATROPINE 04705651979 Active Grace Azam RMA Active FLUVOXAMINE MALEATE 100 MG ORAL TABS take one tab every AM et HS, and take 1/ 2 tab at noon FLUVOXAMINE MALEATE 54504412520 Active Gracekailee Nelsonb RMA Active METOPROLOL SUCCINATE 100 MG [id number] 1 by mouth daily for blood pressure METOPROLOL SUCCINATE 53664664145 No Longer Active Grace Azam RMA Active METFORMIN HCL ER 500 MG NO88Z-GFI Take three tablets by mouth everyday METFORMIN HCL 80032957815 No Longer Active Grace Azam RMA Active LOVAZA 1 GM CAPS 4 daily (for triglycerides) OMEGA-3- ACID ETHYL ESTERS 48569169387 No Longer Active Grace Azam RMA Active TRAZODONE HCL 100 MG ORAL TABS 1 tab by mouth for sleep TRAZODONE HCL 73261358197 No Longer Active Gracekailee Nelsonb RMA Active NOVOFINE 32G X 6 MM MISC use one four times per day INSULIN PEN NEEDLE 08582307017 No Longer Active Grace Azam RMA Active BACTROBAN 2 % CREAM Apply to affected area BID for up to 10 days MUPIROCIN CALCIUM 56634895836 No Longer Active Grace Azam RMA Active ZOFRAN 4 MG TABS 1 po q4hr PRN Nausea ONDANSETRON HCL 77420045367 Active Salina Han RMA Active KEFLEX 500 MG CAP 1 po BID x 7 days CEPHALEXIN 34693288682 No Longer Active Cherelle Avila APRN Active FLUVOXAMINE MALEATE 100 MG TABS Take one (1) tablet by mouth am, 1/2 at noon FLUVOXAMINE MALEATE 82993908235 No Longer Active Mima Erazo APRN Active CORICIDIN HBP CONGESTION/COUGH 10-200 MG ORAL CAPS Take as directed on box as needed for cold/flu symptoms DEXTROMETHORPHAN-GUAIFENESIN 90396424148 Active Cherelle Speaks [employer]CH MAKER Active OMEGA-3 300 MG ORAL CAPS 4 caps by mouth daily OMEGA-3 FATTY ACIDS 66015408716 Active Cherelle Speaks [employer]ETCH MAKER Active FLUVOXAMINE MALEATE 100 MG ORAL TABS Take 1/2 tab at noon FLUVOXAMINE MALEATE 24761580581 No Longer Active Cherelle Speaks SKETCH MAKER Active [facility] LUBRICANT EYE DROPS 0.4-0.3 % OPHTH SOLN POLYETHYL GLYCOL-PROPYL GLYCOL 78157090386 Active Mima Yoeloinaum [employer]ETCH MAKER Active CLONAZEPAM 1 MG TABS 1/2 pill by mouth three times daily CLONAZEPAM 49819147410 Active Alina Castaneda MD PhD Active MIRALAX POWD 17g by mouth daily, for constipation POLYETHYLENE GLYCOL 3350 06227342671 Active Alina Castaneda MD PhD Active HYDROCODONE-ACETAMINOPHEN 5-325 MG TABS 2 tabs by mouth three times daily for pain HYDROCODONE-ACETAMINOPHEN 12064248937 Active Mima Erazo [employer]ETCH MAKER Active HUMALOG KWIKPEN 100 UNIT/ML SC SOPN 20 units with breakfast, 10 units with lunch, 10 units with dinner, for diabetes INSULIN LISPRO (HUMAN ) 77269171968 Active Alina Castaneda MD PhD Active LATUDA 120 MG ORAL TABS 1 pill by mouth nightly LURASIDONE HCL 54498927312 Active Alina Castaneda MD PhD Active COLACE 100 MG CAPS 1 pill by mouth twice daily, for constipation DOCUSATE SODIUM 05349734115 Active Alina Castaneda MD PhD Active TRUETEST TEST STRP check blood sugars 3x/day GLUCOSE BLOOD 82790655943 Active Marvel Mackenzieglari BRIDAL SALES CONSULTANT Active ACCU-CHEK ROSA UZMA Use device to check blood sugars BLOOD GLUCOSE MONITORING SUPPL 06087639414 No Longer Active Maljohn Mackenzieglari BRIDAL SALES CONSULTANT Active ACCU-CHEK ROSA INVITR STRP use strips with device to check blood sugars 3 times daily GLUCOSE BLOOD 41377522561 No Longer Active Marvel MENDOZAP Active VERAPAMIL HCL ER 180 MG ORAL CR-TABS 1 pill by mouth twice daily, for migraine prevention VERAPAMIL HCL 07181536370 Active Alina Castaneda MD PhD Active CYCLOBENZAPRINE HCL 10 MG TABS 1 tablet by mouth three times daily, scheduled CYCLOBENZAPRINE HCL 56399836732 No Longer Active Alina Castaneda MD PhD Active HUMALOG 100 UNIT/ML SOLN Take 20 units with breakfast, 10u with lunch and suppetr. INSULIN LISPRO (HUMAN) 17978651647 No Longer Active Alina Castaneda MD PhD Active TRUETEST TEST STRP check sugars 4x/day GLUCOSE BLOOD 13661755721 No Longer Active Alina Castaneda MD PhD Active MORPHINE SULFATE 30 MG TABS 1 pill by mouth twice daily, for pain MORPHINE SULFATE 47933613973 Active Mima Erazo SKETCH MAKER Active ACYCLOVIR 400 MG ORAL TABS 1 pill three times daily x 5 days, for cold sore outbreak ACYCLOVIR 49068178454 No Longer Active Alina Castaneda MD PhD Active PENICILLIN V POTASSIUM 500 MG TABS 1 pill by mouth three times daily PENICILLIN V POTASSIUM 50478636184 No Longer Active Alina Castaneda MD PhD Active UROXATRAL 10 MG [id number]-[id number] Take 1 tablet by mouth daily ALFUZOSIN HCL 46761306328 No Longer Active Alina Castaneda MD PhD Active THIOTHIXENE 5 MG CAPS by mouth twice a day THIOTHIXENE 82261899593 No Longer Active Alina Castaneda MD PhD Active ZYPREXA 7.5 MG TABS 1 at HS OLANZAPINE 37954366795 No Longer Active Alina Castaneda MD PhD Active BD INSULIN SYRINGE 28G X 1/2" 1 ML MISC 1 four times per day INSULIN SYRINGE-NEEDLE U-100 40561263189 Active Marvel Charles BRIDAL SALES CONSULTANT Active DETROL LA 4 MG [id number]-ROH Take 1 tablet by mouth daily TOLTERODINE TARTRATE 45079640358 No Longer Active Alina Castaneda MD PhD Active TERESE CONTOUR TEST STRP monitor blood sugars 3x/day GLUCOSE BLOOD 10244611354 No Longer Active Alina Castaneda MD PhD Active EQL TRUETEST TEST STRP Test blood sugar TID GLUCOSE BLOOD 96844623716 No Longer Active Alina Castaneda MD PhD Active FLUTICASONE PROPIONATE 50 MCG/ACT SUSP 2 sprays each nostril qDay x 30 days FLUTICASONE PROPIONATE 13167665959 No Longer Active Alina Castaneda MD PhD Active IBUPROFEN 200 MG TABS 1 Q 6 hr. PRN IBUPROFEN 75747863303 No Longer Active Alina Castaneda MD PhD Active NIACIN ER 500 MG CR-TABS 4 qHS (for triglycerides) NIACIN 59062400917 No Longer Active Alina Castaneda MD PhD Active ALFUZOSIN HCL ER 10 MG [id number]-SMU 1 tablet daily ALFUZOSIN HCL 23521826953 Active Vanessa Hickey MD Active SAPHRIS 5 MG SUBL by mouth twice a day ASENAPINE MALEATE 64786953441 No Longer Active Maliheh Ziglari BRIDAL SALES CONSULTANT Active ACETAMINOPHEN 500 MG TABS 2 Q 6 hr. PRN ACETAMINOPHEN 38865000236 No Longer Active Maliheh Ziglari BRIDAL SALES CONSULTANT Active ORPHENADRINE CITRATE ER 100 MG BX64T-[id number] 1 every 12 hr. as needed ORPHENADRINE CITRATE 24243973980 No Longer Active Alina Castaneda MD PhD Active NIACIN CR 500 MG CR-TABS 2 qHS NIACIN 68260378839 No Longer Active Alina Castaneda MD PhD Active AMOXICILLIN 500 MG CAPS 2 po BID x 10 days AMOXICILLIN 08074885545 No Longer Active Alina Castaneda MD PhD Active HYDROCODONE-ACETAMINOPHEN 7.5-325 MG TABS 1 four times a day as needed for pain HYDROCODONE-ACETAMINOPHEN 91119124437 No Longer Active Alina Castaneda MD PhD Active DOXEPIN HCL 10 MG CAPS Take 1 tablet by mouth daily DOXEPIN HCL 78058047734 No Longer Active Salina Han A Active NAVANE 10 MG CAPS 1/2 tablet twice a day THIOTHIXENE No Longer Active Salina Han A Active CYCLOBENZAPRINE HCL 10 MG TABS 1/2 tablet by mouth every 8 hours as needed for muscle spasms CYCLOBENZAPRINE HCL 34328339199 No Longer Active Alina Castaneda MD PhD Active BACTROBAN 2 % CREAM apply to ear and nose twice daily MUPIROCIN CALCIUM 22850040275 No Longer Active Alina Castaneda MD PhD Active HYDROCODONE-ACETAMINOPHEN 5-325 MG TABS take one tablet by mouth every four hours as needed for pain HYDROCODONE-ACETAMINOPHEN 66301882229 No Longer Active Alina Castaneda MD PhD Active ZOLPIDEM TARTRATE 10 MG TABS take at bedtime ZOLPIDEM TARTRATE 80498964567 Active Alina Castaneda MD PhD Active ZYPREXA 5 MG TABS take one tablet by mouth every evening OLANZAPINE 60863366429 No Longer Active Alina Castaneda MD PhD Active ALBUTEROL SULFATE 0.083 % NEBU SOLN one vial per nebulizer TID and PRN cough/ soa ALBUTEROL SULFATE 68808010107 No Longer Active Alina Castaneda MD PhD Active GUAIFENESIN 600 MG [id number]-QLY 1 tablet by mouth twice daily if needed for cough GUAIFENESIN 92369473065 No Longer Active Marvel Charles [employer]IDAL SALES CONSULTANT Active AZITHROMYCIN 500 MG SOLR 1 po q day AZITHROMYCIN 73658043312 No Longer Active Alina Castaneda MD PhD Active PROMETHAZINE-CODEINE 6.25-10 MG/5ML SYRP 1 tsp po q 6 hours prn cough PROMETHAZINE-CODEINE 90618832982 No Longer Active Alina Castaneda MD PhD Active CEFDINIR 300 MG CAPS by mouth twice a day CEFDINIR 83744395320 No Longer Active Alina Castaneda MD PhD Active METFORMIN HCL 500 MG VP34B-IJQ Take 3 tablets by mouth everyday METFORMIN HCL 69014013275 No Longer Active Alina Castaneda MD PhD Active LEVEMIR 100 UNIT/ML SOLN 90 units SQ qHS INSULIN DETEMIR 41389533606 No Longer Active Marvel MARROQUIN Active TOPROL XL 100 MG [id number]-LXY 1 @ HS METOPROLOL SUCCINATE 51776882471 No Longer Active Marvel MARROQUIN Active ALLOPURINOL 300 MG TABS Take one by mouth daily ALLOPURINOL 81047773603 Active Alina Castaneda MD PhD Active ZYPREXA 10 MG TABS Take one by mouth daily OLANZAPINE 64377872786 No Longer Active Alina Castaneda MD PhD Active NOVOLOG 100 UNIT/ML SOLN 40 units with every meal INSULIN ASPART 64281588813 No Longer Active Alina Castaneda MD PhD Active VERAPAMIL HCL CR 120 MG TAB CR 1 qPM VERAPAMIL HCL 35685936962 No Longer Active Salina Ervinamelia ROJAS Active ZYPREXA 15 MG TABS Take 1 tablet by mouth daily OLANZAPINE 97373367422 No Longer Active Marvel MARROQUIN Active LISINOPRIL 20 MG TABS 1 BID LISINOPRIL 07162384054 Active Alina Castaneda MD PhD Active ALBUTEROL SULFATE (2.5 MG/3ML) 0.083% NEBU 1 neb tid and prn cough ALBUTEROL SULFATE 02952897376 No Longer Active Alina Castaneda MD PhD Active TRAVATAN Z 0.004 % SOLN 1 gtt each eye daily TRAVOPROST 12317378184 Active CRYSTAL Suarez Active LANTUS 100 UNIT/ML SOLN 60 units sq q hs INSULIN GLARGINE 88069007337 No Longer Active CRYSTAL Suaerz Active ALBUTEROL SULFATE (2.5 MG/3ML) 0.083% NEBU 1 neb tid and prn cough ALBUTEROL SULFATE (2.5 MG/3ML) 0.083% NEBU 790441 ALBUTEROL SULFATE Inactive ZYPREXA 15 MG TABS Take 1 tablet by mouth daily ZYPREXA 15 MG TABS 297080 OLANZAPINE Inactive VERAPAMIL HCL CR 120 MG TAB CR 1 qPM VERAPAMIL HCL CR 120 MG TAB CR VERAPAMIL HCL Inactive ZYPREXA 10 MG TABS Take one by mouth daily ZYPREXA 10 MG TABS 328199 OLANZAPINE Inactive TOPROL XL 100 MG [id number] 1 @ HS TOPROL XL 100 MG HN88M-XDZ METOPROLOL SUCCINATE Inactive LEVEMIR 100 UNIT/ML SOLN 90 units SQ qHS LEVEMIR 100 UNIT/ML SOLN INSULIN DETEMIR Inactive PROMETHAZINE-CODEINE 6.25-10 MG/5ML SYRP 1 tsp po q 6 hours prn cough PROMETHAZINE-CODEINE 6.25-10 MG/5ML SYRP 913872 PROMETHAZINE- CODEINE Inactive GUAIFENESIN 600 MG DG64K-EYO 1 tablet by mouth twice daily if needed for cough GUAIFENESIN 600 MG NR50X-LXS GUAIFENESIN Inactive ALBUTEROL SULFATE 0.083 % NEBU SOLN one vial per nebulizer TID and PRN cough/ soa ALBUTEROL SULFATE 0.083 % NEBU SOLN 603188 ALBUTEROL SULFATE Inactive ZYPREXA 5 MG TABS take one tablet by mouth every evening ZYPREXA 5 MG TABS 618647 OLANZAPINE Inactive HYDROCODONE-ACETAMINOPHEN 5-325 MG TABS take one tablet by mouth every four hours as needed for pain HYDROCODONE-ACETAMINOPHEN 5-325 MG TABS 456546 HYDROCODONE-ACETAMINOPHEN Inactive BACTROBAN 2 % CREAM apply to ear and nose twice daily BACTROBAN 2 % CREAM 966912 MUPIROCIN CALCIUM Inactive CYCLOBENZAPRINE HCL 10 MG TABS 1/2 tablet by mouth every 8 hours as needed for muscle spasms CYCLOBENZAPRINE HCL 10 MG TABS 322579 CYCLOBENZAPRINE HCL Inactive NAVANE 10 MG CAPS 1/2 tablet twice a day NAVANE 10 MG CAPS THIOTHIXENE Inactive DOXEPIN HCL 10 MG CAPS Take 1 tablet by mouth daily DOXEPIN HCL 10 MG CAPS 5968943 DOXEPIN HCL Inactive HYDROCODONE-ACETAMINOPHEN 7.5-325 MG TABS 1 four times a day as needed for pain HYDROCODONE-ACETAMINOPHEN 7.5-325 MG TABS 207341 HYDROCODONE-ACETAMINOPHEN Inactive NIACIN CR 500 MG CR-TABS 2 qHS NIACIN CR 500 MG CR- TABS NIACIN Inactive ORPHENADRINE CITRATE ER 100 MG [id number]-RQF 1 every 12 hr. as needed ORPHENADRINE CITRATE ER 100 MG AA23G-YFY ORPHENADRINE CITRATE Inactive ACETAMINOPHEN 500 MG TABS 2 Q 6 hr. PRN ACETAMINOPHEN 500 MG TABS 080229 ACETAMINOPHEN Inactive SAPHRIS 5 MG SUBL by mouth twice a day SAPHRIS 5 MG SUBL ASENAPINE MALEATE Inactive NIACIN ER 500 MG CR-TABS 4 qHS (for triglycerides) NIACIN ER 500 MG CR-TABS NIACIN Inactive IBUPROFEN 200 MG TABS 1 Q 6 hr. PRN IBUPROFEN 200 MG TABS 397694 IBUPROFEN Inactive FLUTICASONE PROPIONATE 50 MCG/ACT SUSP 2 sprays each nostril qDay x 30 days FLUTICASONE PROPIONATE 50 MCG/ACT SUSP 280811 FLUTICASONE PROPIONATE Inactive EQL TRUETEST TEST STRP Test blood sugar TID EQL TRUETEST TEST STRP GLUCOSE BLOOD Inactive TERESE CONTOUR TEST STRP monitor blood sugars 3x/day TERESE CONTOUR TEST STRP GLUCOSE BLOOD Inactive DETROL LA 4 MG AS90W-JUT Take 1 tablet by mouth daily DETROL LA 4 MG KF65R-IYV TOLTERODINE TARTRATE Inactive ZYPREXA 7.5 MG TABS 1 at HS ZYPREXA 7.5 MG TABS 827527 OLANZAPINE Inactive THIOTHIXENE 5 MG CAPS by mouth twice a day THIOTHIXENE 5 MG CAPS 033047 THIOTHIXENE Inactive UROXATRAL 10 MG ZP99J-JHX Take 1 tablet by mouth daily UROXATRAL 10 MG VO44E-CIH ALFUZOSIN HCL Inactive ACYCLOVIR 400 MG ORAL TABS 1 pill three times daily x 5 days, for cold sore outbreak ACYCLOVIR 400 MG ORAL TABS 506321 ACYCLOVIR Inactive TRUETEST TEST STRP check sugars 4x/day TRUETEST TEST STRP GLUCOSE BLOOD Inactive HUMALOG 100 UNIT/ML SOLN Take 20 units with breakfast, 10u with lunch and suppetr. HUMALOG 100 UNIT/ML SOLN INSULIN LISPRO ( HUMAN) Inactive CYCLOBENZAPRINE HCL 10 MG TABS 1 tablet by mouth three times daily, scheduled CYCLOBENZAPRINE HCL 10 MG TABS 209107 CYCLOBENZAPRINE HCL Inactive ACCU-CHEK ROSA INVITR STRP use strips with device to check blood sugars 3 times daily ACCU-CHEK ROSA INVITR STRP GLUCOSE BLOOD Inactive ACCU-CHEK ROSA UZMA Use device to check blood sugars ACCU-CHEK ROSA UZMA BLOOD GLUCOSE MONITORING SUPPL Inactive FLUVOXAMINE MALEATE 100 MG ORAL TABS Take 1/2 tab at noon FLUVOXAMINE MALEATE 100 MG ORAL TABS 010611 FLUVOXAMINE MALEATE Inactive FLUVOXAMINE MALEATE 100 MG TABS Take one (1) tablet by mouth am, 1/2 at noon FLUVOXAMINE MALEATE 100 MG TABS 854473 FLUVOXAMINE MALEATE Inactive BACTROBAN 2 % CREAM Apply to affected area BID for up to 10 days BACTROBAN 2 % CREAM 012872 MUPIROCIN CALCIUM Inactive NOVOFINE 32G X 6 MM MISC use one four times per day NOVOFINE 32G X 6 MM MISC INSULIN PEN NEEDLE Inactive TRAZODONE HCL 100 MG ORAL TABS 1 tab by mouth for sleep TRAZODONE HCL 100 MG ORAL TABS 068176 TRAZODONE HCL Inactive LOVAZA 1 GM CAPS 4 daily (for triglycerides) LOVAZA 1 GM CAPS 437180 FWWVI-2-TZSB ETHYL ESTERS Inactive METFORMIN HCL ER 500 MG PT35W-MPH Take three tablets by mouth everyday METFORMIN HCL ER 500 MG WC91Z-GNX METFORMIN HCL Inactive METOPROLOL SUCCINATE 100 MG MD93C-DGA 1 by mouth daily for blood pressure METOPROLOL SUCCINATE 100 MG AL25A-FUP METOPROLOL SUCCINATE Inactive AMITIZA 24 MCG ORAL CAPS Take one capsule BID for constipation. AMITIZA 24 MCG ORAL CAPS LUBIPROSTONE Inactive TOLTERODINE TARTRATE 2 MG TABS 1 pill twice daily, for bladder TOLTERODINE TARTRATE 2 MG TABS 217996 TOLTERODINE TARTRATE Inactive CEFDINIR 300 MG CAPS by mouth twice a day CEFDINIR 300 MG CAPS 821518 CEFDINIR Inactive AZITHROMYCIN 500 MG SOLR 1 po q day AZITHROMYCIN 500 MG SOLR 35030588744 AZITHROMYCIN Inactive AMOXICILLIN 500 MG CAPS 2 po BID x 10 days AMOXICILLIN 500 MG CAPS 189210 AMOXICILLIN Inactive PENICILLIN V POTASSIUM 500 MG TABS 1 pill by mouth three times daily PENICILLIN V POTASSIUM 500 MG TABS 988266 PENICILLIN V POTASSIUM Inactive KEFLEX 500 MG CAP 1 po BID x 7 days KEFLEX 500 MG CAP 871446 CEPHALEXIN Inactive Immunizations Vaccine Administration Date Value [...] Fluvirin, Fluarix, Agriflu(>=18 yo)) Fluzone (>3 yrs.) [[id number]] Influenza, seasonal, injectable pneumococcal immunization administered Pneumovax [...] MICROALBUMIN - Chemistry sodium, serum 137 mmol/L 533-788 7705/05/19 potassium, serum 5.2 mmol/L 3.5-5.2 chloride, serum [...] Panel - Chemistry sodium, serum 137 mmol/L 314-577 3348/10/12 potassium, serum 4.8 mmol/L 3.5-5.2 chloride, serum 102 mmol/L 98-107 carbon dioxide, venous blood 27.6 mmol/L 21.0-32.0 blood glucose 168 mg/dL 65-110 calcium, serum 9.0 mg/dL 8.5-10.1 urea nitrogen, blood 15 mg/dL 7-18 creatinine, serum 1.04 mg/dL 0.55-1.30 sodium, serum 138 mmol/L 567-275 6393/11/11 potassium, serum 4.7 mmol/L 3.5-5.2 chloride, serum [...] erythrocyte (RBC) count 4.54 10^6/MM^3 10*6/mm3 4.69-6.13 leukocyte count, blood 9.6 10^3/MM^3 10*3/mm3 4.6-10.2 hematocrit, blood 39.5 % 41.0-53.0 mean corpuscular volume, RBC 91 fL 80-97 mean corpuscular hemoglobin, RBC 31.2 pg 27.0-31.2 mean corpuscular hemoglobin concentration, RBC 34.1 G/DL % 31.8- 35.4 red blood cell distribution width 15.3 % 11.6-14.8 platelet count 252 10^3/MM^3 10*3/mm3 800-396 5085/11/11 neutrophils as percent of blood leukocytes 75.0 % 42.2-75.2 monocytes as percent of blood leukocytes 6.5 % 1.7-9.3 lymphocytes as percent of blood leukocytes 12.7 % 20.5-51.1 erythrocyte (RBC) count 4.33 10^6/MM^3 10*6/mm3 4.69-6.13 hemoglobin, blood 13.5 g/dL 13.5-17.5 hemoglobin, blood 13.7 g/dL 13.5-17.5 hematocrit, blood 40.2 % 41.0-53.0 mean corpuscular volume, RBC 89 fL 80-97 mean corpuscular hemoglobin, RBC 30.1 pg 27.0-31.2 mean corpuscular hemoglobin concentration, RBC 34.0 G/DL % 31.8- 35.4 red blood cell distribution width 15.6 % 11.6-14.8 platelet count 240 10^3/MM^3 10*3/mm3 142-424 Lab Report: Chlamydia/GC APTIMA/80055, HIV-1/2 Agn/Dominga/41346, RPR (DX) W ... - Chemistry hepatitis B surface antigen NON-REACTIVE NON-REACTIVE Lab Report: Chlamydia/GC APTIMA/30829, HIV-1/2 Agn/Dominga/71230, RPR (DX) W ... - Lab chlamydia DNA probe NOT DETECTED NOT DETECTED Lab Report: Chlamydia/GC APTIMA/55553, HIV-1/2 Agn/Dominga/17694, RPR (DX) W ... - Microbiology Neisseria gonorrhoeae DNA probe NOT DETECTED NOT DETECTED Lab Report: Chlamydia/GC APTIMA/[id number], HIV-1/2 Agn/Dominga/29182, RPR (DX) W ... - Serology rapid plasma reagin antibody titer NON-REACTIVE NON-REACTIVE Lab Report: HGBA1C - Chemistry hemoglobin A1C, blood, as % of total hemoglobin 6.1 % 4.3-6.0 hemoglobin A1C, blood, as % of total hemoglobin 6.3 % 4.3-6.0 Lab Report: Lipid Panel, HEPATIC PANEL, MICROALBUMIN, CBC - Chemistry albumin/creatinine ratio, urine < 30 mg/g mg/g{creat} 0-29 bilirubin, serum, total 0.30 mg/dL 0.00-1.00 alanine aminotransferase (SGPT), serum 112 U/L 12-78 aspartate aminotransferase (SGOT), serum 52 U/L 15-37 LDL cholesterol, serum 31 mg/dL 0-130 HDL cholesterol, serum 23 mg/dL 32-96 triglyceride, serum, fasting 383 mg/dL 30-200 cholesterol, serum 131 mg/dL 130-200 Lab Report: Lipid Panel, HEPATIC PANEL, MICROALBUMIN, [...] Specific Ag, MICROALBUMIN, Uric Acid - Chemistry uric acid, serum 4.7 mg/dL 2.6-7.2 LDL cholesterol, serum 66 mg/dL 0-130 prostate specific antigen 0.37 ng/mL 0.00-4.00 cholesterol, serum 142 mg/dL 047-426 0598/06/26 triglyceride, serum, fasting 272 mg/dL 30-200 HDL cholesterol, serum 22 mg/dL 32-96 albumin/creatinine ratio, urine < 30 mg/g mg/g{creat} 0-29 Lab Report: Lipid Panel, Prostatic Specific Ag, MICROALBUMIN, Uric Acid - Lab microalbumin, urine 80 0-19 Lab Report: UADIP W/MICRO, AUTO - Chemistry RBC, urine, dipstick Negative Negative protein, total urine random Negative mg/dL Negative Lab Report: UADIP W/MICRO, AUTO - Urinalysis glucose, urine, semiquantitative Negative Negative urine color Yellow Colorless;Lightyellow;Straw;Yellow appearance, urine Clear Clear pH, urine, semiquantitative 5.5 5.0-8.5 urobilinogen, urine, semiquantitative (dipstick) 1.0 Normal leukocyte esterase, urine, by dipstick Negative Negative nitrite, urine, semiquantitative Negative Negative specific gravity, urine 1.020 1.000-1.030 ketones, urine, by test strip Trace Negative bilirubin, urine Negative Negative Office Visit: 1 month follow up retention [...] negative Encounters Code Encounter Date Provider Facility CPT-51813 Level 3 Est. Patient 14:39:00 CORRESPONDENCE SECTION SUPERVISOR Vanessa Hickey MD [facility]-03217 Level 2 Est. Patient 18:43:34 CDT Mima Erazo [facility] CPT-77971 Level 3 Est. Patient 16:22:09 CDT Cherelle Avila [facility] CPT-58998 Level 4 Est. Patient 17:55:14 CDT Mima Jeffliudmila [facility] CPT-14267 Level 2 Est. Patient 17:13:21 CDT Alina Castaneda MD [facility] CPT-90932 Level 3 Est. Patient 14:46:15 CDT Vanessa Hickey MD [facility]-84672 Level 3 Est. Patient 09:34:56 CDT Alina Castaneda MD [facility]79052 Level 3 Est. Patient 21:40:19 CDT Mima Erazo [facility] CPT-94958 Level 3 Est. Patient 09:26:40 CDT Marvel Charles [facility]-79855 Level 3 Est. Patient 12:36:43 CDT Vanessa Hickey MD [facility]52564 Level 3 Est. Patient 12:57:49 CDT Vanessa Hickey MD [facility]99809 Level 3 Est. Patient 00:28:25 CDT Alina Castaneda MD [facility]12463 Level 2 Est. Patient 12:52:14 CDT Alina Castaneda MD [facility]79065 Level 3 Est. Patient 11:51:18 CORRESPONDENCE SECTION SUPERVISOR Alina Castaneda MD [id number] Level 3 Est. Patient 10:09:22 CORRESPONDENCE SECTION SUPERVISOR Alina Castaneda MD [facility]18158 Level 3 Est. Patient 14:36:26 CORRESPONDENCE SECTION SUPERVISOR Marvel Charles [facility]46286 Level 3 Est. Patient 13:34:47 CORRESPONDENCE SECTION SUPERVISOR Alina Castaneda MD [facility] [place]69009 Level 3 Est. Patient 19:52:08 CORRESPONDENCE SECTION SUPERVISOR Alina Castaneda MD [facility] [place]23621 Level 3 Est. Patient 10:01:51 CORRESPONDENCE SECTION SUPERVISOR Marvel Charles [facility]-30484 Level 3 Est. Patient 21:54:06 CDT Vanessa Hickey MD [facility]-75357 Level 3 Est. Patient 08:54:46 CDT Alina Castaneda MD [facility]47757 Level 3 Est. Patient 09:32:11 CDT Marvel [facility]52163 Level 3 Est. Patient 12:02:49 CDT Alina Castaneda MD [facility]95335 Level 3 Est. Patient 19:17:33 CDT Alina Castaneda MD [facility] [place]08772 Level 3 Est. Patient 13:19:10 CDT Marvel [facility]20714 Level 3 Est. Patient 08:20:05 CDT Alina Castaneda MD [place] [address] Level 3 Est. Patient 15:17:18 CDT Alina Castaneda MD [facility]41329 Level 3 Est. Patient 14:25:36 CORRESPONDENCE SECTION SUPERVISOR Marvel Charles [facility] CPT-74073 Level 3 Est. Patient 10:09:15 CORRESPONDENCE SECTION SUPERVISOR Marvel Charles [facility]-05412 Level 3 Est. Patient 21:28:43 CDT Alina Castaneda MD [phone] Level 3 Est. Patient 15:20:11 CDT [place] Charles [facility]-69808 Level 4 Est. Patient 19:08:12 CDT Alina Castaneda MD [facility] [phone] Level 3 Est. Patient 15:06:39 CDT [facility]35798 Level 4 Est. Patient 17:48:15 CDT Alina Castaneda MD [facility] [phone] Level 3 Est. Patient 14:53:49 CDT Alina Castaneda MD [facility] [phone] Level 3 Est. Patient 09:35:16 CDT Alina Castaneda MD [facility] [phone] Level 3 Est. Patient 12:23:22 CDT Alina Castaneda MD [facility] [phone] Level 3 Est. Patient 16:19:15 CDT Alina Castaneda MD [id number] Level 3 Est. Patient 21:39:56 CORRESPONDENCE SECTION SUPERVISOR Alina Castaneda MD [phone] Level 4 Est. Patient 14:12:56 CORRESPONDENCE SECTION SUPERVISOR Alina Castaneda MD [phone] Level 2 Est. Patient 15:34:57 CORRESPONDENCE SECTION SUPERVISOR Alina Castaneda MD [phone] Level 3 Est. Patient 12:17:04 CORRESPONDENCE SECTION SUPERVISOR Alina Castaneda MD [phone] Level 3 Est. Patient 09:18:18 CORRESPONDENCE SECTION SUPERVISOR [place] Araceli [facility]-64587 Level 2 Est. Patient 21:50:24 CDT Alina Castaneda MD [facility]06719 Level 3 Est. Patient 09:17:28 CDT Marvel Charles [facility]-63268 Level 4 Est. Patient 18:54:02 CDT Alina Castaneda MD [facility]11628 Level 3 Est. Patient 10:47:10 CDT Alina Castaneda MD [facility]30689 Level 3 Est. Patient 09:22:20 CDT [place] Araceli [facility]-67888 Level 3 Est. Patient 16:39:43 CDT [place] Araceli [facility]-56971 Level 3 Est. Patient 16:05:16 CDT Alina Castaneda MD [facility]63587 Level 3 Est. Patient 00:29:15 CDT Alina Castaneda MD [facility]37027 Level 3 Est. Patient 10:49:22 CORRESPONDENCE SECTION SUPERVISOR [place] Araceli [facility]88842 Level 3 Est. Patient 21:30:19 CORRESPONDENCE SECTION SUPERVISOR Alina Castaneda MD [facility]76090 Level 4 Est. Patient 17:04:11 CORRESPONDENCE SECTION SUPERVISOR Marvel Charles [facility]46285 Level 3 Est. Patient 15:34:11 CORRESPONDENCE SECTION SUPERVISOR Zainnivia Araceli [facility]97962 Level 2 Est. Patient 12:51:58 CORRESPONDENCE SECTION SUPERVISOR Alina Castaneda MD PhD [facility] CPT-44805 Level 3 Est. Patient 13:20:01 CORRESPONDENCE SECTION SUPERVISOR Alina Castaneda MD PhD [facility] CPT-33461 Level 3 Est. Patient 09:23:35 CDT Alina Castaneda MD PhD [facility] Procedures Code Procedure Name Date Entry Date Standard Description CPT-30649 Bladder Scan 14:39:01 CORRESPONDENCE SECTION SUPERVISOR CPT-TCMM Transitional Care Mgmt-Moderate 10:30:19 CORRESPONDENCE SECTION SUPERVISOR CPT-87495 Bladder Scan 12:36:44 CDT CPT-85608 Bladder Scan 21:54:06 CDT CPT-G0008 Administration of Influenza Virus Vaccine 13:05:26 CDT CPT-20794 Fluzone Quadrivalent Intramuscular Suspension 0.5 ML 13: 05:26 CDT CPT-56963 Administration single or combination vaccine inc oral 11 :49:51 CDT CPT-51241 Pneumovax 11:49:51 CDT CPT-11867 Ribs unilateral 2V 12:37:22 CORRESPONDENCE SECTION SUPERVISOR CPT-64093 Chest 2V Frontal and Lat 17:15:26 CDT CPT-27628 Abx/Therapy Injection 18:54:02 CDT CPT-J0696 Rocephin 1000 mg (Ceftriaxone) 16:00:32 CDT CPT-00718 Chest 2V Frontal and Lat 15:26:45 CDT CPT-77453 Chest 2V Frontal and Lat 10:23:27 CDT CPT-23972 Venipuncture Draw Fee 10:11:00 CDT CPT-66269 Administration single or combination vaccine inc oral 11 :56:38 CDT CPT-72024 Influenza split virus > age 3 11:56:38 CDT CPT-01019 Venipuncture Draw Fee 08:49:54 CORRESPONDENCE SECTION SUPERVISOR CPT-68907 EKG Trac and Interp 17:54:19 CORRESPONDENCE SECTION SUPERVISOR
--- OUTSIDE RECORDS SUMMARY | 2018-07-02 13:57 | XMS REPORT | Clinical Summary ---
Author Author Admin, TERELL Organization [facility] Address Unknown Phone Unavailable Allergies, Adverse Reactions, 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 Erazo CULINARY ARTIST Benign paroxysmal positional vertigo Vertigo, benign paroxysmal position 386.11 Inactive Mima Erazo CULINARY ARTIST Benign paroxysmal positional vertigo High-risk sexual behavior V69.2 Active Alina Castaneda MD PhD High-risk sexual behavior Erectile dysfunction 302.72 Active Alina Castaneda MD PhD Psychosexual dysfunction with inhibited sexual excitement Constipation 564.00 Active Alina Castaneda MD PhD Constipation, unspecified Skin lesion 709.9 Active Alina Castaneda MD PhD Unspecified disorder of skin and subcutaneous tissue Malaise and fatigue 780.79 Active Cherelle Speaks CULINARY ARTIST Other malaise and fatigue Diarrhea 787.91 Active Cherelle Speaks CULINARY ARTIST Diarrhea PHARYNGITIS 462 Active Cherelle Speaks CULINARY ARTIST Acute pharyngitis Colitis 558.9 Active Mima Erazo CULINARY ARTIST Other and unspecified noninfectious gastroenteritis and colitis [...] DIABETIC HYPOGLYCEMIA, TYPE II ICD-250.80 Inactive Marvel MARROQUNI 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 Roro Castaneda MD PhD [...] CAPS Take one by mouth daily CHOLECALCIFEROL 60815105966 Active Mima Yokum CULINARY ARTIST Active LATUDA 60 MG ORAL TABS Take one by mouth daily LURASIDONE HCL 10246612023 No Longer Active Mima Yokum CULINARY ARTIST Active HUMALOG KWIKPEN 100 UNIT/ML SC SOPN sliding scale if needed INSULIN LISPRO (HUMAN) 58745665946 Active Mima Yokum CULINARY ARTIST Active MORPHINE SULFATE 30 MG ORAL TABS by mouth twice a day MORPHINE SULFATE 37902458020 Active Salina Han [facility] Active TRAZODONE HCL 100 MG TABS 1 every night to prevent headaches TRAZODONE HCL 27663602603 Active Gabrielle Madl CONSERVATION COORDINATOR Active LATUDA 60 MG ORAL TABS 1 tab daily LURASIDONE HCL 66509444665 Active Gabrielle Madl CONSERVATION COORDINATOR Active CLONAZEPAM 1 MG TABS 1 pill by mouth three times daily CLONAZEPAM 81350494406 Active Gabrielle Madl CONSERVATION COORDINATOR Active [facility] MILK OF MAGNESIA 400 MG/5ML ORAL SUSP 30ml by mouth bid prn MAGNESIUM HYDROXIDE 31772708417 Active Mason Loredo MD Active TYLENOL 8 HOUR 650 MG ORAL CR-TABS 1 tab QID prn ACETAMINOPHEN 29032993996 Active Mason Loredo MD Active MYLANTA GAS RELIEF MAXIMUM STR 125 MG ORAL CAPS 30cc every 4 hours prn 12/01 SIMETHICONE 99523473447 Active Mason Loredo MD Active IMODIUM A-D 2 MG ORAL TABS 1 tab QID as needed LOPERAMIDE HCL 81399179372 Active Mason Loredo MD Active FLUVOXAMINE MALEATE 50 MG ORAL TABS 1 tab by mouth daily FLUVOXAMINE MALEATE 76165609269 Active Mason Loredo MD Active TRAVATAN Z 0.004 % SOLN 1 gtt each eye daily TRAVOPROST 75962973040 No Longer Active Mason Loredo MD Active LISINOPRIL 20 MG TABS 1 BID LISINOPRIL 23839542512 No Longer Active Mason Loredo MD Active LEVEMIR FLEXTOUCH 100 UNIT/ML SC SOPN 60 units SQ each evening, for diabetes INSULIN DETEMIR 61806552614 Active Desi Nicholson Active ZOLPIDEM TARTRATE 10 MG TABS take at bedtime ZOLPIDEM TARTRATE 71199107208 No Longer Active Mason Loredo MD Active HYDROCODONE-ACETAMINOPHEN 5-325 MG TABS 2 tabs by mouth three times daily for pain HYDROCODONE-ACETAMINOPHEN 56261581512 No Longer Active Mason Loredo MD Active ZOFRAN 4 MG TABS 1 po q4hr PRN Nausea ONDANSETRON HCL 50222941714 No Longer Active Mason Loredo MD Active LOMOTIL 2.5-0.025 MG ORAL TABS take 1-2 tabs PO after each stool, no more than 8 in 24 hours DIPHENOXYLATE-ATROPINE 98975519534 No Longer Active Mason Loredo MD Active COLACE 100 MG CAPS 1 pill by mouth twice daily, for constipation DOCUSATE SODIUM 94720244650 No Longer Active Mima Kacey [place] Active FLONASE ALLERGY RELIEF 50 MCG/ACT NASAL SUSP One spray each nostril BID x 1 week then daily FLUTICASONE PROPIONATE 03801120508 Active Mima Erazo APRN Active BD PEN NEEDLE MINI U/F 31G X 5 MM MISC 4 a day INSULIN PEN NEEDLE 28455941178 Active Marvel Bertrandari [employer]URAL [employer] TECHNICIAN Active AMITIZA 24 MCG ORAL CAPS Take one capsule BID for constipation LUBIPROSTONE 91564902038 Active Mima Erazo CULINARY ARTIST Active TRUEPLUS LANCETS 30G MISC 3 a day LANCETS 82305964095 Active Marvel 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 NATURAL G[employer] PLANT TECHNICIAN Active TOLTERODINE TARTRATE 2 MG TABS 1 pill twice daily, for bladder TOLTERODINE TARTRATE 76340837773 No Longer Active Vanessa Hickey MD Active AMITIZA 24 MCG ORAL CAPS Take one capsule BID for constipation. LUBIPROSTONE 09199371960 No Longer Active Vanessa Hickey MD Active FLUVOXAMINE MALEATE 100 MG ORAL TABS take one tab every AM et HS, and take 1/ 2 tab at noon FLUVOXAMINE MALEATE 07682403026 Active Grace Azam RMA Active METOPROLOL SUCCINATE 100 MG [id number] 1 by mouth daily for blood pressure METOPROLOL SUCCINATE 35939170473 No Longer Active Grace Azam RMA Active METFORMIN HCL ER 500 MG [id number]-GCX Take three tablets by mouth everyday METFORMIN HCL 70597446727 No Longer Active Grace Azam RMA Active LOVAZA 1 GM CAPS 4 daily (for triglycerides) OMEGA-3- ACID ETHYL ESTERS 82167038585 No Longer Active Grace Azam RMA Active TRAZODONE HCL 100 MG ORAL TABS 1 tab by mouth for sleep TRAZODONE HCL 90367667291 No Longer Active Grace Azam RMA Active NOVOFINE 32G X 6 MM MISC use one four times per day INSULIN PEN NEEDLE 40800104987 No Longer Active Grace Azam RMA Active BACTROBAN 2 % CREAM Apply to affected area BID for up to 10 days MUPIROCIN CALCIUM 69258709353 No Longer Active Grace Nelsonb RMA Active KEFLEX 500 MG CAP 1 po BID x 7 days CEPHALEXIN 79511781698 No Longer Active Cherelle Speaks CULINARY ARTIST Active FLUVOXAMINE MALEATE 100 MG TABS Take one (1) tablet by mouth am, 1/2 at noon FLUVOXAMINE MALEATE 21635274431 No Longer Active Mima Erazo CULINARY ARTIST Active CORICIDIN HBP CONGESTION/COUGH 10-200 MG ORAL CAPS Take as directed on box as needed for cold/flu symptoms DEXTROMETHORPHAN-GUAIFENESIN 67037066530 Active Cherelle Speaks CULINARY ARTIST Active OMEGA-3 300 MG ORAL CAPS 4 caps by mouth daily OMEGA-3 FATTY ACIDS 42537978576 Active Mima Erazo CULINARY ARTIST Active FLUVOXAMINE MALEATE 100 MG ORAL TABS Take 1/2 tab at noon FLUVOXAMINE MALEATE 47970596052 No Longer Active Cherelle Austin CULINARY ARTIST Active [facility] LUBRICANT EYE DROPS 0.4-0.3 % OPHTH SOLN POLYETHYL GLYCOL-PROPYL GLYCOL 64679509542 Active Mima Erazo CULINARY ARTIST Active MIRALAX POWD 17g by mouth daily, for constipation POLYETHYLENE GLYCOL 3350 21471419378 Active Alina Castaneda MD PhD Active TRUETEST TEST STRP check blood sugars 3x/day GLUCOSE BLOOD 68866344076 Active Maliheh Ziglari NATURAL G[employer]ANT TECHNICIAN Active ACCU-CHEK ROSA UMZA Use device to check blood sugars BLOOD GLUCOSE MONITORING SUPPL 34367548744 No Longer Active Maliheh Ziglari NATURAL G[employer] PLANT TECHNICIAN Active ACCU-CHEK ROSA INVITR STRP use strips with device to check blood sugars 3 times daily GLUCOSE BLOOD 53815347025 No Longer Active Maliheh Ziglari NATURAL G[employer] PLANT TECHNICIAN Active VERAPAMIL HCL ER 180 MG ORAL CR-TABS 1 pill by mouth twice daily, for migraine prevention VERAPAMIL HCL 31452509759 Active CRYSTAL Rodrigues Active CYCLOBENZAPRINE HCL 10 MG TABS 1 tablet by mouth three times daily, scheduled CYCLOBENZAPRINE HCL 38512573007 No Longer Active Alina Castaneda MD PhD Active HUMALOG 100 UNIT/ML SOLN Take 20 units with breakfast, 10u with lunch and suppetr. INSULIN LISPRO (HUMAN) 33695383754 No Longer Active Alina Castaneda MD PhD Active TRUETEST TEST STRP check sugars 4x/day GLUCOSE BLOOD 74688449516 No Longer Active Alina Castaneda MD PhD Active MORPHINE SULFATE 30 MG TABS 1 pill by mouth twice daily, for pain MORPHINE SULFATE 07146265845 No Longer Active Mason Loredo MD Active ACYCLOVIR 400 MG ORAL TABS 1 pill three times daily x 5 days, for cold sore outbreak ACYCLOVIR 32881428989 No Longer Active Alina Castaneda MD PhD Active PENICILLIN V POTASSIUM 500 MG TABS 1 pill by mouth three times daily PENICILLIN V POTASSIUM 43334331005 No Longer Active Alina Castaneda MD PhD Active UROXATRAL 10 MG IF37Y-JNN Take 1 tablet by mouth daily ALFUZOSIN HCL 61301503002 No Longer Active Alina Castaneda MD PhD Active THIOTHIXENE 5 MG CAPS by mouth twice a day THIOTHIXENE 44414361840 No Longer Active Alina Castaneda MD PhD Active ZYPREXA 7.5 MG TABS 1 at HS OLANZAPINE 37962823525 No Longer Active Alina Castaneda MD PhD Active BD INSULIN SYRINGE 28G X 1/2" 1 ML MISC 1 four times per day INSULIN SYRINGE-NEEDLE U-100 02596715515 Active Marvel Mackenzieglestela NATURAL GAS PLANT TECHNICIAN Active DETROL LA 4 MG [id number] Take 1 tablet by mouth daily TOLTERODINE TARTRATE 75445872389 No Longer Active Alina Castaneda MD PhD Active TERESE CONTOUR TEST STRP monitor blood sugars 3x/day GLUCOSE BLOOD 92177588197 No Longer Active Alina Castaneda MD PhD Active EQL TRUETEST TEST STRP Test blood sugar TID GLUCOSE BLOOD 87833537942 No Longer Active Alina Castaneda MD PhD Active FLUTICASONE PROPIONATE 50 MCG/ACT SUSP 2 sprays each nostril qDay x 30 days FLUTICASONE PROPIONATE 73249627058 No Longer Active Alina Castaneda MD PhD Active IBUPROFEN 200 MG TABS 1 Q 6 hr. PRN IBUPROFEN 88316652627 No Longer Active Alina Castaneda MD PhD Active NIACIN ER 500 MG CR-TABS 4 qHS (for triglycerides) NIACIN 36500017402 No Longer Active Alina Castaneda MD PhD Active ALFUZOSIN HCL ER 10 MG [id number]-DTR 1 tablet daily ALFUZOSIN HCL 15855307745 Active CRYSTAL Rodrigues Active SAPHRIS 5 MG SUBL by mouth twice a day ASENAPINE MALEATE 95056182774 No Longer Active Maljohn Ziglestela MENDOZAP Active ACETAMINOPHEN 500 MG TABS 2 Q 6 hr. PRN ACETAMINOPHEN 86622695451 No Longer Active Mallashondaeh 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 NATURAL GAS PLANT TECHNICIAN Active ORPHENADRINE CITRATE ER 100 MG [id number] 1 every 12 hr. as needed ORPHENADRINE CITRATE 45678520089 No Longer Active Alina Castaneda MD PhD Active NIACIN CR 500 MG CR-TABS 2 qHS NIACIN 68484965656 No Longer Active Alina Castaneda MD PhD Active AMOXICILLIN 500 MG CAPS 2 po BID x 10 days AMOXICILLIN 44991151833 No Longer Active Alina Castaneda MD PhD Active HYDROCODONE-ACETAMINOPHEN 7.5-325 MG TABS 1 four times a day as needed for pain HYDROCODONE-ACETAMINOPHEN 02025378879 No Longer Active Alina Castaneda MD PhD Active DOXEPIN HCL 10 MG CAPS Take 1 tablet by mouth daily DOXEPIN HCL 37316875436 No Longer Active Salina Han [facility] Active NAVANE 10 MG CAPS 1/2 tablet twice a day THIOTHIXENE No Longer Active Salina Han A Active CYCLOBENZAPRINE HCL 10 MG TABS 1/2 tablet by mouth every 8 hours as needed for muscle spasms CYCLOBENZAPRINE HCL 54965666688 No Longer Active Alina Castaneda MD PhD Active BACTROBAN 2 % CREAM apply to ear and nose twice daily MUPIROCIN CALCIUM 09586293239 No Longer Active Alina Castaneda MD PhD Active HYDROCODONE-ACETAMINOPHEN 5-325 MG TABS take one tablet by mouth every four hours as needed for pain HYDROCODONE-ACETAMINOPHEN 68936203776 No Longer Active Alina Castaneda MD PhD Active ZYPREXA 5 MG TABS take one tablet by mouth every evening OLANZAPINE 19452474983 No Longer Active Alina Catsaneda MD PhD Active ALBUTEROL SULFATE 0.083 % NEBU SOLN one vial per nebulizer TID and PRN cough/ soa ALBUTEROL SULFATE 61360522750 No Longer Active Alina Castaneda MD PhD Active GUAIFENESIN 600 MG [id number]-ULQ 1 tablet by mouth twice daily if needed for cough GUAIFENESIN 04071656278 No Longer Active Marvel Charles [facility] Active AZITHROMYCIN 500 MG SOLR 1 po q day AZITHROMYCIN 23872293708 No Longer Active Alina Castaneda MD PhD Active PROMETHAZINE-CODEINE 6.25-10 MG/5ML SYRP 1 tsp po q 6 hours prn cough PROMETHAZINE-CODEINE 78675942235 No Longer Active Alina Castaneda MD PhD Active CEFDINIR 300 MG CAPS by mouth twice a day CEFDINIR 98213114687 No Longer Active Alina Castaneda MD PhD Active METFORMIN HCL 500 MG WP54M-DPN Take 3 tablets by mouth everyday METFORMIN HCL 68372993498 No Longer Active Alina Castaneda MD PhD Active LEVEMIR 100 UNIT/ML SOLN 90 units SQ qHS INSULIN DETEMIR 22711458121 No Longer Active Marvel MARROQUIN Active TOPROL XL 100 MG RI88N-VJL 1 @ HS METOPROLOL SUCCINATE 25684304348 No Longer Active Marvel MARROQUIN Active ALLOPURINOL 300 MG TABS Take one by mouth daily ALLOPURINOL 77337542319 Active Mimacecily Fierroum CULINARY ARTIST Active ZYPREXA 10 MG TABS Take one by mouth daily OLANZAPINE 66129691352 No Longer Active Alina Castaneda MD PhD Active NOVOLOG 100 UNIT/ML SOLN 40 units with every meal INSULIN ASPART 00192702957 No Longer Active Alina Castaneda MD PhD Active VERAPAMIL HCL CR 120 MG TAB CR 1 qPM VERAPAMIL HCL 67739390127 No Longer Active Salina ROJAS Active ZYPREXA 15 MG TABS Take 1 tablet by mouth daily OLANZAPINE 98273175008 No Longer Active Marvel MARROQUIN Active ALBUTEROL SULFATE (2.5 MG/3ML) 0.083% NEBU 1 neb tid and prn cough ALBUTEROL SULFATE 31848710375 No Longer Active Alina Castaneda MD PhD Active LANTUS 100 UNIT/ML SOLN 60 units sq q hs INSULIN GLARGINE 42201045221 No Longer Active CRYSTAL Suarez Active ALBUTEROL SULFATE (2.5 MG/3ML) 0.083% NEBU 1 neb tid and prn cough ALBUTEROL SULFATE (2.5 MG/3ML) 0.083% NEBU 933503 ALBUTEROL SULFATE Inactive ZYPREXA 15 MG TABS Take 1 tablet by mouth daily ZYPREXA 15 MG TABS 674980 OLANZAPINE Inactive VERAPAMIL HCL CR 120 MG TAB CR 1 qPM VERAPAMIL HCL CR 120 MG TAB CR VERAPAMIL HCL Inactive ZYPREXA 10 MG TABS Take one by mouth daily ZYPREXA 10 MG TABS 207219 OLANZAPINE Inactive TOPROL XL 100 MG [id number]-UWV 1 @ HS TOPROL XL 100 MG UT31M-MEM METOPROLOL SUCCINATE Inactive LEVEMIR 100 UNIT/ML SOLN 90 units SQ qHS LEVEMIR 100 UNIT/ML SOLN INSULIN DETEMIR Inactive PROMETHAZINE-CODEINE 6.25-10 MG/5ML SYRP 1 tsp po q 6 hours prn cough PROMETHAZINE-CODEINE 6.25-10 MG/5ML SYRP 183792 PROMETHAZINE- CODEINE Inactive GUAIFENESIN 600 MG [id number]-KRC 1 tablet by mouth twice daily if needed for cough GUAIFENESIN 600 MG LK55Y-LBS GUAIFENESIN Inactive ALBUTEROL SULFATE 0.083 % NEBU SOLN one vial per nebulizer TID and PRN cough/ soa ALBUTEROL SULFATE 0.083 % NEBU SOLN 644215 ALBUTEROL SULFATE Inactive ZYPREXA 5 MG TABS take one tablet by mouth every evening ZYPREXA 5 MG TABS 162425 OLANZAPINE Inactive HYDROCODONE-ACETAMINOPHEN 5-325 MG TABS take one tablet by mouth every four hours as needed for pain HYDROCODONE-ACETAMINOPHEN 5-325 MG TABS 862386 HYDROCODONE-ACETAMINOPHEN Inactive BACTROBAN 2 % CREAM apply to ear and nose twice daily BACTROBAN 2 % CREAM 305603 MUPIROCIN CALCIUM Inactive CYCLOBENZAPRINE HCL 10 MG TABS 1/2 tablet by mouth every 8 hours as needed for muscle spasms CYCLOBENZAPRINE HCL 10 MG TABS 482515 CYCLOBENZAPRINE HCL Inactive NAVANE 10 MG CAPS 1/2 tablet twice a day NAVANE 10 MG CAPS THIOTHIXENE Inactive DOXEPIN HCL 10 MG CAPS Take 1 tablet by mouth daily DOXEPIN HCL 10 MG CAPS 6387560 DOXEPIN HCL Inactive HYDROCODONE-ACETAMINOPHEN 7.5-325 MG TABS 1 four times a day as needed for pain HYDROCODONE-ACETAMINOPHEN 7.5-325 MG TABS 173433 HYDROCODONE-ACETAMINOPHEN Inactive NIACIN CR 500 MG CR-TABS 2 qHS NIACIN CR 500 MG CR- TABS NIACIN Inactive ORPHENADRINE CITRATE ER 100 MG HF44N-OUV 1 every 12 hr. as needed ORPHENADRINE CITRATE ER 100 MG HN61M-LWJ ORPHENADRINE CITRATE Inactive ACETAMINOPHEN 500 MG TABS 2 Q 6 hr. PRN ACETAMINOPHEN 500 MG TABS 860381 ACETAMINOPHEN Inactive SAPHRIS 5 MG SUBL by mouth twice a day SAPHRIS 5 MG SUBL ASENAPINE MALEATE Inactive NIACIN ER 500 MG CR-TABS 4 qHS (for triglycerides) NIACIN ER 500 MG CR-TABS NIACIN Inactive IBUPROFEN 200 MG TABS 1 Q 6 hr. PRN IBUPROFEN 200 MG TABS 455263 IBUPROFEN Inactive FLUTICASONE PROPIONATE 50 MCG/ACT SUSP 2 sprays each nostril qDay x 30 days FLUTICASONE PROPIONATE 50 MCG/ACT SUSP 069908 FLUTICASONE PROPIONATE Inactive EQL TRUETEST TEST STRP Test blood sugar TID EQL TRUETEST TEST STRP GLUCOSE BLOOD Inactive TERESE CONTOUR TEST STRP monitor blood sugars 3x/day TERESE CONTOUR TEST STRP GLUCOSE BLOOD Inactive DETROL LA 4 MG [id number] Take 1 tablet by mouth daily DETROL LA 4 MG BY86G-AOG TOLTERODINE TARTRATE Inactive ZYPREXA 7.5 MG TABS 1 at HS ZYPREXA 7.5 MG TABS 401716 OLANZAPINE Inactive THIOTHIXENE 5 MG CAPS by mouth twice a day THIOTHIXENE 5 MG CAPS 524190 THIOTHIXENE Inactive UROXATRAL 10 MG [id number]-ZLC Take 1 tablet by mouth daily UROXATRAL 10 MG RL56L-OWE ALFUZOSIN HCL Inactive ACYCLOVIR 400 MG ORAL TABS 1 pill three times daily x 5 days, for cold sore outbreak ACYCLOVIR 400 MG ORAL TABS 523995 ACYCLOVIR Inactive TRUETEST TEST STRP check sugars 4x/day TRUETEST TEST STRP GLUCOSE BLOOD Inactive HUMALOG 100 UNIT/ML SOLN Take 20 units with breakfast, 10u with lunch and suppetr. HUMALOG 100 UNIT/ML SOLN INSULIN LISPRO ( HUMAN) Inactive CYCLOBENZAPRINE HCL 10 MG TABS 1 tablet by mouth three times daily, scheduled CYCLOBENZAPRINE HCL 10 MG TABS 774578 CYCLOBENZAPRINE HCL Inactive ACCU-CHEK ROSA INVITR STRP use strips with device to check blood sugars 3 times daily ACCU-CHEK ROSA INVITR STRP GLUCOSE BLOOD Inactive ACCU-CHEK ROSA UZMA Use device to check blood sugars ACCU-CHEK ROSA UZMA BLOOD GLUCOSE MONITORING SUPPL Inactive FLUVOXAMINE MALEATE 100 MG ORAL TABS Take 1/2 tab at noon FLUVOXAMINE MALEATE 100 MG ORAL TABS 329719 FLUVOXAMINE MALEATE Inactive FLUVOXAMINE MALEATE 100 MG TABS Take one (1) tablet by mouth am, 1/2 at noon FLUVOXAMINE MALEATE 100 MG TABS 969128 FLUVOXAMINE MALEATE Inactive BACTROBAN 2 % CREAM Apply to affected area BID for up to 10 days BACTROBAN 2 % CREAM 808462 MUPIROCIN CALCIUM Inactive NOVOFINE 32G X 6 MM MISC use one four times per day NOVOFINE 32G X 6 MM MISC INSULIN PEN NEEDLE Inactive TRAZODONE HCL 100 MG ORAL TABS 1 tab by mouth for sleep TRAZODONE HCL 100 MG ORAL TABS 209259 TRAZODONE HCL Inactive LOVAZA 1 GM CAPS 4 daily (for triglycerides) LOVAZA 1 GM CAPS 540022 COHZH-2-ZLYM ETHYL ESTERS Inactive METFORMIN HCL ER 500 MG [id number]-NZM Take three tablets by mouth everyday METFORMIN HCL ER 500 MG [id number] METFORMIN HCL Inactive METOPROLOL SUCCINATE 100 MG ZT56M-WVX 1 by mouth daily for blood pressure METOPROLOL SUCCINATE 100 MG VE19G-SGK METOPROLOL SUCCINATE Inactive AMITIZA 24 MCG ORAL CAPS Take one capsule BID for constipation. AMITIZA 24 MCG ORAL CAPS LUBIPROSTONE Inactive TOLTERODINE TARTRATE 2 MG TABS 1 pill twice daily, for bladder TOLTERODINE TARTRATE 2 MG TABS 229483 TOLTERODINE TARTRATE Inactive COLACE 100 MG CAPS 1 pill by mouth twice daily, for constipation COLACE 100 MG CAPS 1159235 DOCUSATE SODIUM Inactive LOMOTIL 2.5-0.025 MG ORAL TABS take 1-2 tabs PO after each stool, no more than 8 in 24 hours LOMOTIL 2.5-0.025 MG ORAL TABS 6243572 DIPHENOXYLATE-ATROPINE Inactive ZOFRAN 4 MG TABS 1 po q4hr PRN Nausea ZOFRAN 4 MG TABS 739295 ONDANSETRON HCL Inactive HYDROCODONE-ACETAMINOPHEN 5-325 MG TABS 2 tabs by mouth three times daily for pain HYDROCODONE-ACETAMINOPHEN 5-325 MG TABS 892361 HYDROCODONE-ACETAMINOPHEN Inactive ZOLPIDEM TARTRATE 10 MG TABS take at bedtime ZOLPIDEM TARTRATE 10 MG TABS 322184 ZOLPIDEM TARTRATE Inactive LISINOPRIL 20 MG TABS 1 BID LISINOPRIL 20 MG TABS 497590 LISINOPRIL Inactive TRAVATAN Z 0.004 % SOLN 1 gtt each eye daily TRAVATAN Z 0.004 % SOLN TRAVOPROST Inactive LATUDA 60 MG ORAL TABS Take one by mouth daily LATUDA 60 MG ORAL TABS LURASIDONE HCL Inactive CEFDINIR 300 MG CAPS by mouth twice a day CEFDINIR 300 MG CAPS 285878 CEFDINIR Inactive AZITHROMYCIN 500 MG SOLR 1 po q day AZITHROMYCIN 500 MG SOLR 17802664443 AZITHROMYCIN Inactive AMOXICILLIN 500 MG CAPS 2 po BID x 10 days AMOXICILLIN 500 MG CAPS 339486 AMOXICILLIN Inactive PENICILLIN V POTASSIUM 500 MG TABS 1 pill by mouth three times daily PENICILLIN V POTASSIUM 500 MG TABS 778666 PENICILLIN V POTASSIUM Inactive KEFLEX 500 MG CAP 1 po BID x 7 days KEFLEX 500 MG CAP 359801 CEPHALEXIN Inactive Immunizations Vaccine Administration Date Value [...] Fluvirin, Fluarix, Agriflu(>=18 yo)) Fluzone (>3 yrs.) [[id number]] Influenza, seasonal, injectable pneumococcal immunization administered Pneumovax [...] Panel - Chemistry sodium, serum 137 mmol/L 572-180 8577/10/12 potassium, serum 4.8 mmol/L 3.5-5.2 chloride, serum 102 mmol/L 98-107 carbon dioxide, venous blood 27.6 mmol/L 21.0-32.0 blood glucose 168 mg/dL 65-110 calcium, serum 9.0 mg/dL 8.5-10.1 urea nitrogen, blood 15 mg/dL 7-18 creatinine, serum 1.04 mg/dL 0.55-1.30 sodium, serum 138 mmol/L 042-311 7735/11/11 potassium, serum 4.7 mmol/L 3.5-5.2 chloride, serum [...] % 11.6-14.8 platelet count 240 10^3/MM^3 10*3/mm3 200-831 9527/11/11 leukocyte count, blood 9.6 10^3/MM^3 10*3/mm3 4.6-10.2 [...] Acid - Chemistry cholesterol, serum 187 mg/dL 872-929 2004/06/14 triglyceride, serum, fasting 246 mg/dL 30-200 HDL [...] negative Encounters Code Encounter Date Provider Facility CPT-51618 Level 3 Est. Patient 17:40:16 CDT Mima Erazo [facility] CPT-96280 Level 3 Est. Patient 14:34:52 CDT Vanessa Hickey MD [facility] CPT-31030 Level 3 Est. Patient 16:27:51 CDT Mima Erazo [facility] CPT-03454 Level 3 Est. Patient 14:39:00 PATTERN WORKER Vanessa Hickey MD [facility] CPT-49598 Level 2 Est. Patient 18:43:34 CDT Mima Erazo [facility] CPT-63865 Level 3 Est. Patient 16:22:09 CDT Cherelle Avila [facility] CPT-50078 Level 4 Est. Patient 17:55:14 CDT Mima Erazo [facility] CPT-27979 Level 2 Est. Patient 17:13:21 CDT Alina Castaneda MD [facility]-50045 Level 3 Est. Patient 14:46:15 CDT Vanessa Hickey MD [facility]-19701 Level 3 Est. Patient 09:34:56 CDT Alina Castaneda MD [facility]99298 Level 3 Est. Patient 21:40:19 CDT Mima Erazo [place] [facility]-32086 Level 3 Est. Patient 09:26:40 CDT Marvel Charles [facility]-85539 Level 3 Est. Patient 12:36:43 CDT Vanessa Hickey MD [facility]25870 Level 3 Est. Patient 12:57:49 CDT Vanessa Hickey MD [facility]84826 Level 3 Est. Patient 00:28:25 CDT Alina Castaneda MD [facility]01212 Level 2 Est. Patient 12:52:14 CDT Alina Castaneda MD [facility]36052 Level 3 Est. Patient 11:51:18 PATTERN WORKER Alina Castaneda MD [facility]-61429 Level 3 Est. Patient 10:09:22 PATTERN WORKER Alina Castaneda MD [facility]89631 Level 3 Est. Patient 14:36:26 PATTERN WORKER Marvel Charles [facility]27721 Level 3 Est. Patient 13:34:47 PATTERN WORKER Alina Castaneda MD [facility]53136 Level 3 Est. Patient 19:52:08 PATTERN WORKER Alina Castaneda MD [facility]77069 Level 3 Est. Patient 10:01:51 PATTERN WORKER Marvel Charles [facility]-09783 Level 3 Est. Patient 21:54:06 CDT Vanessa Hickey MD [facility]-77228 Level 3 Est. Patient 08:54:46 CDT Alina Castaneda MD [facility]-54053 Level 3 Est. Patient 09:32:11 CDT Marvel Araceli [facility]-80928 Level 3 Est. Patient 12:02:49 CDT Alina Castaneda MD [facility]74112 Level 3 Est. Patient 19:17:33 CDT Alina Castaneda MD [facility]51906 Level 3 Est. Patient 13:19:10 [facility]-43191 Level 3 Est. Patient 08:20:05 CDT Alina Castaneda MD [facility]-03245 Level 3 Est. Patient 15:17:18 CDT Alina Castaneda MD [facility]75160 Level 3 Est. Patient 14:25:36 [facility] Est[facility] Patient 10:09:15 PATTERN WORKER [facility]700[facility] Level 3 Est. Patient 21:28:43 CDT Alina Castaneda MD [facility]62469 Level 3 Est. Patient 15:20:11 CDT [place] Charles [facility]-09870 Level 4 Est. Patient 19:08:12 CDT Alina Castaneda MD [facility]03487 Level 3 Est. Patient 15:06:39 CDT [facility], Inc [facility] Inc-38269 Level 4 Est. Patient 17:48:15 CDT Alina Castaneda MD [facility]-05109 Level 3 Est. Patient 14:53:49 CDT Alina Castaneda MD [facility]-71032 Level 3 Est. Patient 09:35:16 CDT Alina Castaneda MD [facility]-62886 Level 3 Est. Patient 12:23:22 CDT Alina Castaneda MD [facility]-00785 Level 3 Est. Patient 16:19:15 CDT Alina Castaneda MD [facility]-20654 Level 3 Est. Patient 21:39:56 PATTERN WORKER Alina Castaneda MD [facility]-69737 Level 4 Est. Patient 14:12:56 PATTERN WORKER Alina Castaneda MD [facility]-66381 Level 2 Est. Patient 15:34:57 PATTERN WORKER Alina Castaneda MD [facility]-17180 Level 3 Est. Patient 12:17:04 PATTERN WORKER Alina Castaneda MD [facility]-54928 Level 3 Est. Patient 09:18:18 PATTERN WORKER Marvel [facility] Inc-49600 Level 2 Est. Patient 21:50:24 CDT Alina Castaneda MD [facility]-08249 Level 3 Est. Patient 09:17:28 CDT Marvel Charles [facility] Inc-92849 Level 4 Est. Patient 18:54:02 CDT Alina Castaneda MD [facility]63205 Level 3 Est. Patient 10:47:10 CDT Alina Castaneda MD [facility]-74265 Level 3 Est. Patient 09:22:20 CDT Marvel Charles [facility] CPT-53160 Level 3 Est. Patient 16:39:43 [facility]T [facility] Level 3 Est. Patient 16:05:16 CDT Alina Castaneda MD [facility] CPT-00864 Level 3 Est. Patient 00:29:15 CDT Alina Castaneda MD [facility] CPT-76435 Level 3 Est. Patient 10:49:22 PATTERN WORKER Marvel [facility] CPT-29049 Level 3 Est. Patient 21:30:19 PATTERN WORKER Alina Castaneda MD [facility] CPT-67671 Level 4 Est. Patient 17:04:11 PATTERN [facility]ER [facility]19514 Level 3 Est. Patient 15:34:11 [facility] Level 2 Est. Patient 12:51:58 PATTERN WORKER Alina Castaneda MD [facility] CPT-42561 Level 3 Est. Patient 13:20:01 PATTERN WORKER Alina Castaneda MD [facility] CPT-83988 Level 3 Est. Patient 09:23:35 CDT Alina Castaneda MD [facility] Procedures Code Procedure Name Date Entry Date Standard Description CPT-TCMM Transitional Care Mgmt-Moderate 10:25:31 CDT CPT-97180 Bladder Scan 14:34:53 CDT CPT-95780 Bladder Scan 14:39:01 PATTERN WORKER CPT-TCMM Transitional Care Mgmt-Moderate 10:30:19 PATTERN WORKER CPT-89261 Bladder Scan 12:36:44 CDT CPT-56115 Bladder Scan 21:54:06 CDT CPT-G0008 Administration of Influenza Virus Vaccine 13:05:26 CDT CPT-84455 Fluzone Quadrivalent Intramuscular Suspension 0.5 ML 13: 05:26 CDT CPT-70931 Administration single or combination vaccine inc oral 11 :49:51 CDT CPT-03266 Pneumovax 11:49:51 CDT CPT-83900 Ribs unilateral 2V 12:37:22 PATTERN WORKER CPT-23081 Chest 2V Frontal and Lat 17:15:26 CDT CPT-32610 Abx/Therapy Injection 18:54:02 CDT CPT-J0696 Rocephin 1000 mg (Ceftriaxone) 16:00:32 CDT CPT-09558 Chest 2V Frontal and Lat 15:26:45 CDT CPT-07686 Chest 2V Frontal and Lat 10:23:27 CDT CPT-86691 Venipuncture Draw Fee 10:11:00 CDT CPT-97155 Administration single or combination vaccine inc oral 11 :56:38 CDT CPT-44571 Influenza split virus > age 3 11:56:38 CDT CPT-23257 Venipuncture Draw Fee 08:49:54 PATTERN WORKER CPT-01645 EKG Trac and Interp 17:54:19 PATTERN WORKER
--- OUTSIDE RECORDS SUMMARY | 2018-07-02 13:59 | XMS REPORT | Clinical Summary ---
Author Author Admin, TERELL Organization [facility] Address Unknown Phone Unavailable Allergies, Adverse Reactions, 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 Erazo JEWELRY BENCH MOLDER Benign paroxysmal positional vertigo Vertigo, benign paroxysmal position 386.11 Inactive Mima Erazo JEWELRY BENCH MOLDER Benign paroxysmal positional vertigo High-risk sexual behavior V69.2 Active Alian Castaneda MD PhD High-risk sexual behavior Erectile dysfunction 302.72 Active Alina Castaneda MD PhD Psychosexual dysfunction with inhibited sexual excitement Constipation 564.00 Active Alina Castaneda MD PhD Constipation, unspecified Skin lesion 709.9 Active Alina Castaneda MD PhD Unspecified disorder of skin and subcutaneous tissue Malaise and fatigue 780.79 Active Cherelle Speaks JEWELRY BENCH MOLDER Other malaise and fatigue Diarrhea 787.91 Active Cherelle Speaks JEWELRY BENCH MOLDER Diarrhea PHARYNGITIS 462 Active Cherelle Speaks JEWELRY BENCH MOLDER Acute pharyngitis Colitis 558.9 Active Mima Erazo JEWELRY BENCH MOLDER Other and unspecified noninfectious gastroenteritis and colitis WOUND, OPEN, NOSE ICD-873.20 Inactive Alina Castaneda MD PhD DIABETES, TYPE 2 ICD-250.00 Inactive Alina Castaneda MD PhD HYPERTENSION ICD-401.9 Inactive Alina Castaneda MD PhD URI ICD-465.9 Inactive Alina Castaneda MD PhD CHEST PAIN ICD-786.50 Inactive Alina Castaneda MD PhD FH STROKE ICD-V17.1 Inactive Marvel Charles BODY SANDER FATIGUE ICD-780.79 Inactive Alina Castaneda MD PhD [...] LANCETS 30G MISC 3 a day LANCETS 60690134869 Active Marvel MARROQUIN Active TOLTERODINE TARTRATE 2 MG TABS 1 pill twice daily, for bladder TOLTERODINE TARTRATE 52834733450 No Longer Active Vanessa Hickey MD Active AMITIZA 24 MCG ORAL CAPS Take one capsule BID for constipation. LUBIPROSTONE 76206494670 No Longer Active Vanessa Hickey MD Active LOMOTIL 2.5-0.025 MG ORAL TABS take 1-2 tabs PO after each stool, no more than 8 in 24 hours DIPHENOXYLATE-ATROPINE 52516942885 Active Grace ROJAS Active FLUVOXAMINE MALEATE 100 MG ORAL TABS take one tab every AM et HS, and take 1/ 2 tab at noon FLUVOXAMINE MALEATE 93697688150 Active Grace ROJAS Active METOPROLOL SUCCINATE 100 MG [id number]-XFA 1 by mouth daily for blood pressure METOPROLOL SUCCINATE 80217966532 No Longer Active Grace ROJAS Active METFORMIN HCL ER 500 MG WI61L-HGQ Take three tablets by mouth everyday METFORMIN HCL 77583721231 No Longer Active Grace Azam RMA Active LOVAZA 1 GM CAPS 4 daily (for triglycerides) OMEGA-3- ACID ETHYL ESTERS 58939687527 No Longer Active Grace Azam RMA Active TRAZODONE HCL 100 MG ORAL TABS 1 tab by mouth for sleep TRAZODONE HCL 52328834315 No Longer Active Grace Azam RMA Active NOVOFINE 32G X 6 MM MISC use one four times per day INSULIN PEN NEEDLE 20013968416 No Longer Active Grace Azam RMA Active BACTROBAN 2 % CREAM Apply to affected area BID for up to 10 days MUPIROCIN CALCIUM 21483002266 No Longer Active Grace Azam RMA Active ZOFRAN 4 MG TABS 1 po q4hr PRN [place] ONDANSETRON HCL 20603310062 Active Salina Emely RMA Active KEFLEX 500 MG CAP 1 po BID x 7 days CEPHALEXIN 30864229186 No Longer Active Cherelle Felixs JEWELRY BENCH MOLDER Active FLUVOXAMINE MALEATE 100 MG TABS Take one (1) tablet by mouth am, 1/2 at noon FLUVOXAMINE MALEATE 45905294404 No Longer Active Mima Erazo APRN Active CORICIDIN HBP CONGESTION/COUGH 10-200 MG ORAL CAPS Take as directed on box as needed for cold/flu symptoms DEXTROMETHORPHAN-GUAIFENESIN 86154417785 Active Cherelle Speaks JEWELRY BENCH MOLDER Active OMEGA-3 300 MG ORAL CAPS 4 caps by mouth daily OMEGA-3 FATTY ACIDS 78531385593 Active Cherelle Speaks JEWELRY BENCH MOLDER Active FLUVOXAMINE MALEATE 100 MG ORAL TABS Take 1/2 tab at noon FLUVOXAMINE MALEATE 30841037619 No Longer Active Cherelle Speaks JEWELRY BENCH MOLDER Active [facility] LUBRICANT EYE DROPS 0.4-0.3 % OPHTH SOLN POLYETHYL GLYCOL-PROPYL GLYCOL 48027785074 Active Mima Yokum JEWELRY BENCH MOLDER Active CLONAZEPAM 1 MG TABS 1/2 pill by mouth three times daily CLONAZEPAM 47477059655 Active Alina Castaneda MD PhD Active MIRALAX POWD 17g by mouth daily, for constipation POLYETHYLENE GLYCOL 3350 72565396463 Active Alina Castaneda MD PhD Active HYDROCODONE-ACETAMINOPHEN 5-325 MG TABS 2 tabs by mouth three times daily for pain HYDROCODONE-ACETAMINOPHEN 00393131176 Active Mima Erazo JEWELRY BENCH MOLDER Active HUMALOG KWIKPEN 100 UNIT/ML SC SOPN 20 units with breakfast, 10 units with lunch, 10 units with dinner, for diabetes INSULIN LISPRO (HUMAN ) 57605911949 Active Alina Castaneda MD PhD Active LEVEMIR FLEXTOUCH 100 UNIT/ML SC SOPN 70 units SQ each evening, for diabetes INSULIN DETEMIR 12692839193 Active Alina Castaneda MD PhD Active LATUDA 120 MG ORAL TABS 1 pill by mouth nightly LURASIDONE HCL 88148207001 Active Alina Castaneda MD PhD Active COLACE 100 MG CAPS 1 pill by mouth twice daily, for constipation DOCUSATE SODIUM 92851554896 Active Alina Castaneda MD PhD Active TRUETEST TEST STRP check blood sugars 3x/day GLUCOSE BLOOD 14138312770 Active Marvel MARROQUIN Active ACCU-CHEK ROSA UZMA Use device to check blood sugars BLOOD GLUCOSE MONITORING SUPPL 54549884752 No Longer Active Marvel MARROQUIN Active ACCU-CHEK ROSA INVITR STRP use strips with device to check blood sugars 3 times daily GLUCOSE BLOOD 14143562328 No Longer Active Marvel MARROQUIN Active VERAPAMIL HCL ER 180 MG ORAL CR-TABS 1 pill by mouth twice daily, for migraine prevention VERAPAMIL HCL 97323790268 Active Alina Castaneda MD PhD Active CYCLOBENZAPRINE HCL 10 MG TABS 1 tablet by mouth three times daily, scheduled CYCLOBENZAPRINE HCL 55266298684 No Longer Active Alina Castaneda MD PhD Active HUMALOG 100 UNIT/ML SOLN Take 20 units with breakfast, 10u with lunch and suppetr. INSULIN LISPRO (HUMAN) 34670620184 No Longer Active Alina Castaneda MD PhD Active TRUETEST TEST STRP check sugars 4x/day GLUCOSE BLOOD 11345829042 No Longer Active Alina Castaneda MD PhD Active MORPHINE SULFATE 30 MG TABS 1 pill by mouth twice daily, for pain MORPHINE SULFATE 59718476479 Active Mima Erazo JEWELRY BENCH MOLDER Active ACYCLOVIR 400 MG ORAL TABS 1 pill three times daily x 5 days, for cold sore outbreak ACYCLOVIR 60226134767 No Longer Active Alina Castaneda MD PhD Active PENICILLIN V POTASSIUM 500 MG TABS 1 pill by mouth three times daily PENICILLIN V POTASSIUM 23378128560 No Longer Active Alina Castaneda MD PhD Active UROXATRAL 10 MG IR17Q-SQV Take 1 tablet by mouth daily ALFUZOSIN HCL 44749181807 No Longer Active Alina Castaneda MD PhD Active THIOTHIXENE 5 MG CAPS by mouth twice a day THIOTHIXENE 94276323873 No Longer Active Alina Castaneda MD PhD Active ZYPREXA 7.5 MG TABS 1 at HS OLANZAPINE 18218906779 No Longer Active Alina Castaneda MD PhD Active BD INSULIN SYRINGE 28G X 1/2" 1 ML MISC 1 four times per day INSULIN SYRINGE-NEEDLE U-100 22678085962 Active [facility] Gurdeepglestela [facility] Active DETROL LA 4 MG IR35Q-EHG Take 1 tablet by mouth daily TOLTERODINE TARTRATE 95418903266 No Longer Active Alina Castaneda MD PhD Active TERESE CONTOUR TEST STRP monitor blood sugars 3x/day GLUCOSE BLOOD 35173614924 No Longer Active Alina Castaneda MD PhD Active EQL TRUETEST TEST STRP Test blood sugar TID GLUCOSE BLOOD 67732155572 No Longer Active Alina Castaneda MD PhD Active FLUTICASONE PROPIONATE 50 MCG/ACT SUSP 2 sprays each nostril qDay x 30 days FLUTICASONE PROPIONATE 05948520907 No Longer Active Alina Castaneda MD PhD Active IBUPROFEN 200 MG TABS 1 Q 6 hr. PRN IBUPROFEN 02980119103 No Longer Active Alina Castaneda MD PhD Active NIACIN ER 500 MG CR-TABS 4 qHS (for triglycerides) NIACIN 57183383169 No Longer Active Alina Castaneda MD PhD Active ALFUZOSIN HCL ER 10 MG RJ51F-SSX 1 tablet daily ALFUZOSIN HCL 10514026270 Active Vanessa Hickey MD Active SAPHRIS 5 MG SUBL by mouth twice a day ASENAPINE MALEATE 86005293116 No Longer Active Mallashondaeh Ziglari BODY SANDER Active ACETAMINOPHEN 500 MG TABS 2 Q 6 hr. PRN ACETAMINOPHEN 91046009118 No Longer Active Maliheh Ziglari BODY SANDER Active ORPHENADRINE CITRATE ER 100 MG MZ66P-MID 1 every 12 hr. as needed ORPHENADRINE CITRATE 28255873968 No Longer Active Alina Castaneda MD PhD Active NIACIN CR 500 MG CR-TABS 2 qHS NIACIN 52112974831 No Longer Active Alina Castaneda MD PhD Active AMOXICILLIN 500 MG CAPS 2 po BID x 10 days AMOXICILLIN 35611649080 No Longer Active Alina Castaneda MD PhD Active HYDROCODONE-ACETAMINOPHEN 7.5-325 MG TABS 1 four times a day as needed for pain HYDROCODONE-ACETAMINOPHEN 29401704528 No Longer Active Alina Castaneda MD PhD Active DOXEPIN HCL 10 MG CAPS Take 1 tablet by mouth daily DOXEPIN HCL 90289966335 No Longer Active Salina ROJAS Active NAVANE 10 MG CAPS 1/2 tablet twice a day THIOTHIXENE No Longer Active Salina ROJAS Active CYCLOBENZAPRINE HCL 10 MG TABS 1/2 tablet by mouth every 8 hours as needed for muscle spasms CYCLOBENZAPRINE HCL 66057158066 No Longer Active Alina Castaneda MD PhD Active BACTROBAN 2 % CREAM apply to ear and nose twice daily MUPIROCIN CALCIUM 77464185003 No Longer Active Alina Castaneda MD PhD Active HYDROCODONE-ACETAMINOPHEN 5-325 MG TABS take one tablet by mouth every four hours as needed for pain HYDROCODONE-ACETAMINOPHEN 25083319342 No Longer Active Alina Castaneda MD PhD Active ZOLPIDEM TARTRATE 10 MG TABS take at bedtime ZOLPIDEM TARTRATE 31941434390 Active Alina Castaneda MD PhD Active ZYPREXA 5 MG TABS take one tablet by mouth every evening OLANZAPINE 29256806439 No Longer Active Alina Castaneda MD PhD Active ALBUTEROL SULFATE 0.083 % NEBU SOLN one vial per nebulizer TID and PRN cough/ soa ALBUTEROL SULFATE 66420905857 No Longer Active Alina Castaneda MD PhD Active GUAIFENESIN 600 MG BU58X-VCL 1 tablet by mouth twice daily if needed for cough GUAIFENESIN 89863890001 No Longer Active Marvel MARROQUIN Active AZITHROMYCIN 500 MG SOLR 1 po q day AZITHROMYCIN 27332137300 No Longer Active Alina Castaneda MD PhD Active PROMETHAZINE-CODEINE 6.25-10 MG/5ML SYRP 1 tsp po q 6 hours prn cough PROMETHAZINE-CODEINE 33006086464 No Longer Active Alina Castaneda MD PhD Active CEFDINIR 300 MG CAPS by mouth twice a day CEFDINIR 85048090572 No Longer Active Alina Castaneda MD PhD Active METFORMIN HCL 500 MG PR78H-ZOG Take 3 tablets by mouth everyday METFORMIN HCL 53538540853 No Longer Active Alina Castaneda MD PhD Active LEVEMIR 100 UNIT/ML SOLN 90 units SQ qHS INSULIN DETEMIR 39971868679 No Longer Active Marvel MARROQUIN Active TOPROL XL 100 MG QG59Z-TVE 1 @ HS METOPROLOL SUCCINATE 72569447809 No Longer Active Marvel MARROQUIN Active ALLOPURINOL 300 MG TABS Take one by mouth daily ALLOPURINOL 10119628931 Active Alina Castaneda MD PhD Active ZYPREXA 10 MG TABS Take one by mouth daily OLANZAPINE 23935501597 No Longer Active Alina Castaneda MD PhD Active NOVOLOG 100 UNIT/ML SOLN 40 units with every meal INSULIN ASPART 90603470753 No Longer Active Alina Castaneda MD PhD Active VERAPAMIL HCL CR 120 MG TAB CR 1 qPM VERAPAMIL HCL 89524574056 No Longer Active Salina ROJAS Active ZYPREXA 15 MG TABS Take 1 tablet by mouth daily OLANZAPINE 74674874473 No Longer Active Marvel MARROQUIN Active LISINOPRIL 20 MG TABS 1 BID LISINOPRIL 60621812899 Active Alina Castaneda MD PhD Active ALBUTEROL SULFATE (2.5 MG/3ML) 0.083% NEBU 1 neb tid and prn cough ALBUTEROL SULFATE 01772929226 No Longer Active Alina Castaneda MD PhD Active TRAVATAN Z 0.004 % SOLN 1 gtt each eye daily TRAVOPROST 56361491383 Active CRYSTAL Suarez Active LANTUS 100 UNIT/ML SOLN 60 units sq q hs INSULIN GLARGINE 22615730484 No Longer Active CRYSTAL Suarez Active ALBUTEROL SULFATE (2.5 MG/3ML) 0.083% NEBU 1 neb tid and prn cough ALBUTEROL SULFATE (2.5 MG/3ML) 0.083% NEBU 861933 ALBUTEROL SULFATE Inactive ZYPREXA 15 MG TABS Take 1 tablet by mouth daily ZYPREXA 15 MG TABS 644175 OLANZAPINE Inactive VERAPAMIL HCL CR 120 MG TAB CR 1 qPM VERAPAMIL HCL CR 120 MG TAB CR VERAPAMIL HCL Inactive ZYPREXA 10 MG TABS Take one by mouth daily ZYPREXA 10 MG TABS 619149 OLANZAPINE Inactive TOPROL XL 100 MG [id number]-IKP 1 @ HS TOPROL XL 100 MG QC28A-HSU METOPROLOL SUCCINATE Inactive LEVEMIR 100 UNIT/ML SOLN 90 units SQ qHS LEVEMIR 100 UNIT/ML SOLN INSULIN DETEMIR Inactive PROMETHAZINE-CODEINE 6.25-10 MG/5ML SYRP 1 tsp po q 6 hours prn cough PROMETHAZINE-CODEINE 6.25-10 MG/5ML SYRP 643013 PROMETHAZINE- CODEINE Inactive GUAIFENESIN 600 MG QN76F-YGI 1 tablet by mouth twice daily if needed for cough GUAIFENESIN 600 MG [id number]-JXB GUAIFENESIN Inactive ALBUTEROL SULFATE 0.083 % NEBU SOLN one vial per nebulizer TID and PRN cough/ soa ALBUTEROL SULFATE 0.083 % NEBU SOLN 198763 ALBUTEROL SULFATE Inactive ZYPREXA 5 MG TABS take one tablet by mouth every evening ZYPREXA 5 MG TABS 644390 OLANZAPINE Inactive HYDROCODONE-ACETAMINOPHEN 5-325 MG TABS take one tablet by mouth every four hours as needed for pain HYDROCODONE-ACETAMINOPHEN 5-325 MG TABS 162403 HYDROCODONE-ACETAMINOPHEN Inactive BACTROBAN 2 % CREAM apply to ear and nose twice daily BACTROBAN 2 % CREAM 377887 MUPIROCIN CALCIUM Inactive CYCLOBENZAPRINE HCL 10 MG TABS 1/2 tablet by mouth every 8 hours as needed for muscle spasms CYCLOBENZAPRINE HCL 10 MG TABS 390146 CYCLOBENZAPRINE HCL Inactive NAVANE 10 MG CAPS 1/2 tablet twice a day NAVANE 10 MG CAPS THIOTHIXENE Inactive DOXEPIN HCL 10 MG CAPS Take 1 tablet by mouth daily DOXEPIN HCL 10 MG CAPS 6295359 DOXEPIN HCL Inactive HYDROCODONE-ACETAMINOPHEN 7.5-325 MG TABS 1 four times a day as needed for pain HYDROCODONE-ACETAMINOPHEN 7.5-325 MG TABS 271406 HYDROCODONE-ACETAMINOPHEN Inactive NIACIN CR 500 MG CR-TABS 2 qHS NIACIN CR 500 MG CR- TABS NIACIN Inactive ORPHENADRINE CITRATE ER 100 MG CY15A-WOU 1 every 12 hr. as needed ORPHENADRINE CITRATE ER 100 MG ZS21U-FSC ORPHENADRINE CITRATE Inactive ACETAMINOPHEN 500 MG TABS 2 Q 6 hr. PRN ACETAMINOPHEN 500 MG TABS 395764 ACETAMINOPHEN Inactive SAPHRIS 5 MG SUBL by mouth twice a day SAPHRIS 5 MG SUBL ASENAPINE MALEATE Inactive NIACIN ER 500 MG CR-TABS 4 qHS (for triglycerides) NIACIN ER 500 MG CR-TABS NIACIN Inactive IBUPROFEN 200 MG TABS 1 Q 6 hr. PRN IBUPROFEN 200 MG TABS 604515 IBUPROFEN Inactive FLUTICASONE PROPIONATE 50 MCG/ACT SUSP 2 sprays each nostril qDay x 30 days FLUTICASONE PROPIONATE 50 MCG/ACT SUSP 856722 FLUTICASONE PROPIONATE Inactive EQL TRUETEST TEST STRP Test blood sugar TID EQL TRUETEST TEST STRP GLUCOSE BLOOD Inactive TERESE CONTOUR TEST STRP monitor blood sugars 3x/day TERESE CONTOUR TEST STRP GLUCOSE BLOOD Inactive DETROL LA 4 MG SV62O-HDE Take 1 tablet by mouth daily DETROL LA 4 MG [id number]-JLG TOLTERODINE TARTRATE Inactive ZYPREXA 7.5 MG TABS 1 at HS ZYPREXA 7.5 MG TABS 688099 OLANZAPINE Inactive THIOTHIXENE 5 MG CAPS by mouth twice a day THIOTHIXENE 5 MG CAPS 816295 THIOTHIXENE Inactive UROXATRAL 10 MG GW37D-JLM Take 1 tablet by mouth daily UROXATRAL 10 MG AY98Y-ACM ALFUZOSIN HCL Inactive ACYCLOVIR 400 MG ORAL TABS 1 pill three times daily x 5 days, for cold sore outbreak ACYCLOVIR 400 MG ORAL TABS 249958 ACYCLOVIR Inactive TRUETEST TEST STRP check sugars 4x/day TRUETEST TEST STRP GLUCOSE BLOOD Inactive HUMALOG 100 UNIT/ML SOLN Take 20 units with breakfast, 10u with lunch and suppetr. HUMALOG 100 UNIT/ML SOLN INSULIN LISPRO ( HUMAN) Inactive CYCLOBENZAPRINE HCL 10 MG TABS 1 tablet by mouth three times daily, scheduled CYCLOBENZAPRINE HCL 10 MG TABS 995324 CYCLOBENZAPRINE HCL Inactive ACCU-CHEK ROSA INVITR STRP use strips with device to check blood sugars 3 times daily ACCU-CHEK ROSA INVITR STRP GLUCOSE BLOOD Inactive ACCU-CHEK ROSA UZMA Use device to check blood sugars ACCU-CHEK ROSA UZMA BLOOD GLUCOSE MONITORING SUPPL Inactive FLUVOXAMINE MALEATE 100 MG ORAL TABS Take 1/2 tab at noon FLUVOXAMINE MALEATE 100 MG ORAL TABS 060727 FLUVOXAMINE MALEATE Inactive FLUVOXAMINE MALEATE 100 MG TABS Take one (1) tablet by mouth am, 1/2 at noon FLUVOXAMINE MALEATE 100 MG TABS 550911 FLUVOXAMINE MALEATE Inactive BACTROBAN 2 % CREAM Apply to affected area BID for up to 10 days BACTROBAN 2 % CREAM 385846 MUPIROCIN CALCIUM Inactive NOVOFINE 32G X 6 MM MISC use one four times per day NOVOFINE 32G X 6 MM MISC INSULIN PEN NEEDLE Inactive TRAZODONE HCL 100 MG ORAL TABS 1 tab by mouth for sleep TRAZODONE HCL 100 MG ORAL TABS 498849 TRAZODONE HCL Inactive LOVAZA 1 GM CAPS 4 daily (for triglycerides) LOVAZA 1 GM CAPS 809957 WBAKF-7-HMOM ETHYL ESTERS Inactive METFORMIN HCL ER 500 MG OY88K-NHJ Take three tablets by mouth everyday METFORMIN HCL ER 500 MG TE81P-NFY METFORMIN HCL Inactive METOPROLOL SUCCINATE 100 MG KG19P-EBE 1 by mouth daily for blood pressure METOPROLOL SUCCINATE 100 MG JF33T-ONC METOPROLOL SUCCINATE Inactive AMITIZA 24 MCG ORAL CAPS Take one capsule BID for constipation. AMITIZA 24 MCG ORAL CAPS LUBIPROSTONE Inactive TOLTERODINE TARTRATE 2 MG TABS 1 pill twice daily, for bladder TOLTERODINE TARTRATE 2 MG TABS 538427 TOLTERODINE TARTRATE Inactive CEFDINIR 300 MG CAPS by mouth twice a day CEFDINIR 300 MG CAPS 335082 CEFDINIR Inactive AZITHROMYCIN 500 MG SOLR 1 po q day AZITHROMYCIN 500 MG SOLR 76777417452 AZITHROMYCIN Inactive AMOXICILLIN 500 MG CAPS 2 po BID x 10 days AMOXICILLIN 500 MG CAPS 607487 AMOXICILLIN Inactive PENICILLIN V POTASSIUM 500 MG TABS 1 pill by mouth three times daily PENICILLIN V POTASSIUM 500 MG TABS 666373 PENICILLIN V POTASSIUM Inactive KEFLEX 500 MG CAP 1 po BID x 7 days KEFLEX 500 MG CAP 439431 CEPHALEXIN Inactive Immunizations Vaccine Administration Date Value [...] Fluvirin, Fluarix, Agriflu(>=18 yo)) Fluzone (>3 yrs.) [CTO215] Influenza, seasonal, injectable pneumococcal immunization administered Pneumovax [...] E&M - 3141-9 239 [lb_av] Weight Measured Diagnostic Results Date Name Value Unit Range Description Lab Report: Basic Metabolic Panel, HGBA1C, MICROALBUMIN - Chemistry sodium, serum 137 mmol/L 041-935 4327/05/19 potassium, serum 5.2 mmol/L 3.5-5.2 chloride, serum [...] Panel - Chemistry sodium, serum 137 mmol/L 441-493 3932/10/12 potassium, serum 4.8 mmol/L 3.5-5.2 chloride, serum 102 mmol/L 98-107 carbon dioxide, venous blood 27.6 mmol/L 21.0-32.0 blood glucose 168 mg/dL 65-110 calcium, serum 9.0 mg/dL 8.5-10.1 urea nitrogen, blood 15 mg/dL 7-18 creatinine, serum 1.04 mg/dL 0.55-1.30 sodium, serum 138 mmol/L 523-893 0616/11/11 potassium, serum 4.7 mmol/L 3.5-5.2 chloride, serum [...] % 11.6-14.8 platelet count 252 10^3/MM^3 10*3/mm3 446-522 6989/10/12 leukocyte count, blood 5.8 10^3/MM^3 10*3/mm3 4.6-10.2 [...] 240 10^3/MM^3 10*3/mm3 142-424 Lab Report: Chlamydia/GC APTIMA/35100, HIV-1/2 Agn/Dominga/64468, RPR (DX) W ... - Chemistry hepatitis B surface antigen NON-REACTIVE NON-REACTIVE Lab Report: Chlamydia/GC APTIMA/02812, HIV-1/2 Agn/Dominga/53743, RPR (DX) W ... - Lab chlamydia DNA probe NOT DETECTED NOT DETECTED Lab Report: Chlamydia/GC APTIMA/06415, HIV-1/2 Agn/Dominga/52563, RPR (DX) W ... - Microbiology Neisseria gonorrhoeae DNA probe NOT DETECTED NOT DETECTED Lab Report: Chlamydia/GC APTIMA/99735, HIV-1/2 Agn/Dominga/20722, RPR (DX) W ... - Serology rapid plasma reagin antibody titer NON-REACTIVE NON-REACTIVE Lab Report: HGBA1C - Chemistry hemoglobin A1C, blood, as % of total hemoglobin 6.1 % 4.3-6.0 Lab Report: Lipid Panel, HEPATIC PANEL, MICROALBUMIN, CBC - Chemistry albumin/creatinine ratio, urine < 30 mg/g mg/g{creat} 0-29 cholesterol, serum 131 mg/dL 983-256 4095/06/03 triglyceride, serum, fasting 383 mg/dL 30-200 HDL [...] 4.7 mg/dL 2.6-7.2 cholesterol, serum 142 mg/dL 926-269 1358/06/26 triglyceride, serum, fasting 272 mg/dL 30-200 HDL [...] negative Encounters Code Encounter Date Provider Facility [facility]-[id number] Level 3 Est. Patient 14:39:00 SUPERVISOR ELECTRIC Vanessa Hickey MD [facility]-90207 Level 2 Est. Patient 18:43:34 CDT Mima Erazo [facility] CPT-57694 Level 3 Est. Patient 16:22:09 CDT Cherelle Avila [facility] CPT-79128 Level 4 Est. Patient 17:55:14 CDT Mima Erazo [facility] CPT-56954 Level 2 Est. Patient 17:13:21 CDT Alina Castaneda MD PhD [facility]-53764 Level 3 Est. Patient 14:46:15 CDT Vanessa Hickey MD [facility]-59830 Level 3 Est. Patient 09:34:56 CDT Alina Castaneda MD PhD [facility]68831 Level 3 Est. Patient 21:40:19 CDT Mima Erazo [facility]81402 Level 3 Est. Patient 09:26:40 CDT Maliheh Ziglari [facility]-92195 Level 3 Est. Patient 12:36:43 CDT Vanessa Hickey MD [facility]-91109 Level 3 Est. Patient 12:57:49 CDT Vanessa Hickey MD [facility]-55878 Level 3 Est. Patient 00:28:25 CDT Alina Castaneda MD [facility]06253 Level 2 Est. Patient 12:52:14 CDT Alina Castaneda MD [facility]12893 Level 3 Est. Patient 11:51:18 SUPERVISOR ELECTRIC Alina Castaneda MD [facility]39352 Level 3 Est. Patient 10:09:22 SUPERVISOR ELECTRIC lAina Castaneda MD [facility]14113 Level 3 Est. Patient 14:36:26 SUPERVISOR ELECTRIC Marvel Charles [facility]-68025 Level 3 Est. Patient 13:34:47 SUPERVISOR ELECTRIC Alina Castaneda MD [facility]47023 Level 3 Est. Patient 19:52:08 SUPERVISOR ELECTRIC Alina Castaneda MD [facility]28943 Level 3 Est. Patient 10:01:51 SUPERVISOR ELECTRIC Marvel Charles [facility]-16615 Level 3 Est. Patient 21:54:06 CDT Vanessa Hickey MD [facility]12341 Level 3 Est. Patient 08:54:46 CDT Alina Castaneda MD [facility]42422 Level 3 Est. Patient 09:32:11 CDT Marvel Charles [facility]35593 Level 3 Est. Patient 12:02:49 CDT Alina Castaneda MD [facility]94742 Level 3 Est. Patient 19:17:33 CDT Alina Castaneda MD [facility]-68459 Level 3 Est. Patient 13:19:10 CDT Marvel Charles [facility]-92210 Level 3 Est. Patient 08:20:05 CDT Alina Castaneda MD [facility]-92443 Level 3 Est. Patient 15:17:18 CDT Alina Castaneda MD [facility]39972 Level 3 Est. Patient 14:25:36 SUPERVISOR ELECTRIC Marvel Charles [facility]-92165 Level 3 Est. Patient 10:09:15 SUPERVISOR ELECTRIC Marvel Charles [facility]-92370 Level 3 Est. Patient 21:28:43 CDT Alina Castaneda MD [facility]-56529 Level 3 Est. Patient 15:20:11 [facility] Patient 19:08:12 CDT Alina Castaneda MD [facility]-97448 Level 3 Est. Patient 15:06:39 CDT Marvel Charles [facility]-43680 Level 4 Est. Patient 17:48:15 CDT Alina Castaneda MD [facility]-59762 Level 3 Est. Patient 14:53:49 CDT Alina Castaneda MD [facility]-24278 Level 3 Est. Patient 09:35:16 CDT Alina Castaneda MD [facility]-50381 Level 3 Est. Patient 12:23:22 CDT Alina Castaneda MD [facility]-22658 Level 3 Est. Patient 16:19:15 CDT Alina Castaneda MD [facility]-66736 Level 3 Est. Patient 21:39:56 SUPERVISOR ELECTRIC Alina Castaneda MD [facility]-43755 Level 4 Est. Patient 14:12:56 SUPERVISOR ELECTRIC Alina Castaneda MD [facility]-29348 Level 2 Est. Patient 15:34:57 SUPERVISOR ELECTRIC Alina Castaneda MD [facility]-92987 Level 3 Est. Patient 12:17:04 SUPERVISOR ELECTRIC Alina Castaneda MD [facility]26248 Level 3 Est. Patient 09:18:18 SUPERVISOR ELECTRIC Marvel Charles [facility]-26205 Level 2 Est. Patient 21:50:24 CDT Alina Castaneda MD [facility]-51797 Level 3 Est. Patient 09:17:28 CDT Marvel Charles [facility]-85687 Level 4 Est. Patient 18:54:02 CDT Alina Castaneda MD [facility]-59652 Level 3 Est. Patient 10:47:10 CDT Alina Castaneda MD [facility]-58624 Level 3 Est. Patient 09:22:20 CDT Marvel Charles [facility]-07951 Level 3 Est. Patient 16:39:43 CDT Marvel Charles [facility]-69303 Level 3 Est. Patient 16:05:16 CDT Alina Castaneda [facility] [facility] [id number] Level 3 Est. Patient 00:29:15 CDT Alina Castaneda MD [facility] [id number] Level 3 Est. Patient 10:49:22 [facility] ELECTRIC [facility]197 Level 3 Est. Patient 21:30:19 SUPERVISOR ELECTRIC Alina Castaneda MD [facility] CPT-75276 Level 4 Est. Patient 17:04:11 SUPERVISOR ELECTRIC [facility] CPT-96407 Level 3 Est. Patient 15:34:11 SUPERVISOR ELECTRIC [facility] CPT-80273 Level 2 Est. Patient 12:51:58 SUPERVISOR ELECTRIC Alina Castaneda MD [facility] CPT-82769 Level 3 Est. Patient 13:20:01 SUPERVISOR ELECTRIC Alina Castaneda MD PhD [facility] CPT-88519 Level 3 Est. Patient 09:23:35 CDT Alina Castaneda MD PhD [facility] Procedures Code Procedure Name Date Entry Date Standard Description CPT-29942 Bladder Scan 14:39:01 SUPERVISOR ELECTRIC CPT-TCMM Transitional Care Mgmt-Moderate 10:30:19 SUPERVISOR ELECTRIC CPT-11022 Bladder Scan 12:36:44 CDT CPT-29896 Bladder Scan 21:54:06 CDT CPT-G0008 Administration of Influenza Virus Vaccine 13:05:26 CDT CPT-58891 Fluzone Quadrivalent Intramuscular Suspension 0.5 ML 13: 05:26 CDT CPT-29086 Administration single or combination vaccine inc oral 11 :49:51 CDT CPT-38422 Pneumovax 11:49:51 CDT CPT-81338 Ribs unilateral 2V 12:37:22 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
--- OUTSIDE RECORDS SUMMARY | 2018-07-02 14:00 | XMS REPORT | Clinical Summary ---
Author Author Admin, TERELL Organization [facility] Address Unknown Phone Unavailable Allergies, Adverse Reactions, [...] not stated as uncontrolled Dizziness 780.4 Resolved Alnia Castaneda MD PhD Dizziness and giddiness Confusion 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 Erazo FOOD BAGGING MACHINE OPERATOR Benign paroxysmal positional vertigo Vertigo, benign paroxysmal position 386.11 Inactive Mima Erazo FOOD BAGGING MACHINE OPERATOR Benign paroxysmal positional vertigo High-risk sexual behavior V69.2 Active Alina Castaneda MD PhD High-risk sexual behavior Erectile dysfunction 302.72 Active Alina Castaneda MD PhD Psychosexual dysfunction with inhibited sexual excitement Constipation 564.00 Active Alina Castaneda MD PhD Constipation, unspecified Skin lesion 709.9 Active Alina Castaneda MD PhD Unspecified disorder of skin and subcutaneous tissue Malaise and fatigue 780.79 Active Cherelle Speaks FOOD BAGGING MACHINE OPERATOR Other malaise and fatigue Diarrhea 787.91 Active Cherelle Speaks FOOD BAGGING MACHINE OPERATOR Diarrhea PHARYNGITIS 462 Active Cherelle Speaks FOOD BAGGING MACHINE OPERATOR Acute pharyngitis Colitis 558.9 Active Mima Erazo FOOD BAGGING MACHINE OPERATOR Other and unspecified noninfectious gastroenteritis and colitis WOUND, OPEN, NOSE ICD-873.20 Inactive Alina Castaneda MD PhD DIABETES, TYPE 2 ICD-250.00 Inactive Alina Castaneda MD PhD HYPERTENSION ICD-401.9 Inactive Alina Castaneda MD PhD URI ICD-465.9 Inactive Alina Castaneda MD PhD CHEST PAIN ICD-786.50 Inactive Alina Castaneda MD PhD FH STROKE ICD-V17.1 Inactive Marvel Charles OPERATOR ASSISTANT I CEMENTING FATIGUE ICD-780.79 Inactive Alina Castaneda MD PhD [...] x 1 week then daily FLUTICASONE PROPIONATE 55491111550 Active Mima Erazo FOOD BAGGING MACHINE OPERATOR Active BD PEN NEEDLE MINI U/F 31G X 5 MM MISC 4 a day INSULIN PEN NEEDLE 84580950422 Active Marvel Mackenzieglestela OPERATOR ASSISTANT I CEMENTING Active AMITIZA 24 MCG ORAL CAPS Take one capsule BID for constipation LUBIPROSTONE 30254415379 Active Mima Erazo FOOD BAGGING MACHINE OPERATOR Active LEVEMIR FLEXTOUCH 100 UNIT/ML SC SOPN 75 units SQ each evening, for diabetes INSULIN DETEMIR 42366433439 Active CRYSTAL Rodrigues Active TRUEPLUS LANCETS 30G MISC 3 a day LANCETS 48168593162 Active Marvel MARROQUIN Active TOLTERODINE TARTRATE 2 MG TABS 1 pill twice daily, for bladder TOLTERODINE TARTRATE 06214613081 No Longer Active Vanessa Hickey MD Active AMITIZA 24 MCG ORAL CAPS Take one capsule BID for constipation. LUBIPROSTONE 63687664483 No Longer Active Vanessa Hickey MD Active LOMOTIL 2.5-0.025 MG ORAL TABS take 1-2 tabs PO after each stool, no more than 8 in 24 hours DIPHENOXYLATE-ATROPINE 96329066213 Active Grace Azam RMA Active FLUVOXAMINE MALEATE 100 MG ORAL TABS take one tab every AM et HS, and take 1/ 2 tab at noon FLUVOXAMINE MALEATE 67100882839 Active Grace Azam RMA Active METOPROLOL SUCCINATE 100 MG [id number] 1 by mouth daily for blood pressure METOPROLOL SUCCINATE 06057461503 No Longer Active Grace Azam RMA Active METFORMIN HCL ER 500 MG [id number]-JDW Take three tablets by mouth everyday METFORMIN HCL 75926890180 No Longer Active Grace Azam RMA Active LOVAZA 1 GM CAPS 4 daily (for triglycerides) OMEGA-3- ACID ETHYL ESTERS 73626376280 No Longer Active Grace Azam RMA Active TRAZODONE HCL 100 MG ORAL TABS 1 tab by mouth for sleep TRAZODONE HCL 34375551490 No Longer Active Grace Azam RMA Active NOVOFINE 32G X 6 MM MISC use one four times per day INSULIN PEN NEEDLE 72224306966 No Longer Active Grace Azam RMA Active BACTROBAN 2 % CREAM Apply to affected area BID for up to 10 days MUPIROCIN CALCIUM 48681731567 No Longer Active Grace Azam RMA Active ZOFRAN 4 MG TABS 1 po q4hr PRN Nausea ONDANSETRON HCL 12480062703 Active Salina Ervinford RMA Active KEFLEX 500 MG CAP 1 po BID x 7 days CEPHALEXIN 99719332653 No Longer Active Cherelle Avila FOOD BAGGING MACHINE OPERATOR Active FLUVOXAMINE MALEATE 100 MG TABS Take one (1) tablet by mouth am, 1/2 at noon FLUVOXAMINE MALEATE 79273292863 No Longer Active Mima Erazo FOOD BAGGING MACHINE OPERATOR Active CORICIDIN HBP CONGESTION/COUGH 10-200 MG ORAL CAPS Take as directed on box as needed for cold/flu symptoms DEXTROMETHORPHAN-GUAIFENESIN 81349581729 Active Cherelle Avila FOOD BAGGING MACHINE OPERATOR Active OMEGA-3 300 MG ORAL CAPS 4 caps by mouth daily OMEGA-3 FATTY ACIDS 22355152981 Active Mima Erazo FOOD BAGGING MACHINE OPERATOR Active FLUVOXAMINE MALEATE 100 MG ORAL TABS Take 1/2 tab at noon FLUVOXAMINE MALEATE 01331613325 No Longer Active Cherelle Avila FOOD BAGGING MACHINE OPERATOR Active [facility] LUBRICANT EYE DROPS 0.4-0.3 % OPHTH SOLN POLYETHYL GLYCOL-PROPYL GLYCOL 13311414690 Active Mima Erazo FOOD BAGGING MACHINE OPERATOR Active CLONAZEPAM 1 MG TABS 1/2 pill by mouth three times daily CLONAZEPAM 09011481141 Active Alina Castaneda MD PhD Active MIRALAX POWD 17g by mouth daily, for constipation POLYETHYLENE GLYCOL 3350 69886159638 Active Alina Castaneda MD PhD Active HYDROCODONE-ACETAMINOPHEN 5-325 MG TABS 2 tabs by mouth three times daily for pain HYDROCODONE-ACETAMINOPHEN 52468082540 Active Mima Erazo FOOD BAGGING MACHINE OPERATOR Active HUMALOG KWIKPEN 100 UNIT/ML SC SOPN 20 units with breakfast, 10 units with lunch, 10 units with dinner, for diabetes INSULIN LISPRO (HUMAN ) 34049052869 Active Alina Castaneda MD PhD Active LATUDA 120 MG ORAL TABS 1 pill by mouth nightly LURASIDONE HCL 30777697824 Active Alina Castaneda MD PhD Active COLACE 100 MG CAPS 1 pill by mouth twice daily, for constipation DOCUSATE SODIUM 41872284012 Active Alina Castaneda MD PhD Active TRUETEST TEST STRP check blood sugars 3x/day GLUCOSE BLOOD 65000616995 Active Marvel MARROQUIN Active ACCU-CHEK ROSA UZMA Use device to check blood sugars BLOOD GLUCOSE MONITORING SUPPL 60417193286 No Longer Active Marvel MARROQUIN Active ACCU-CHEK ROSA INVITR STRP use strips with device to check blood sugars 3 times daily GLUCOSE BLOOD 45277335507 No Longer Active Marvel MARROQUIN Active VERAPAMIL HCL ER 180 MG ORAL CR-TABS 1 pill by mouth twice daily, for migraine prevention VERAPAMIL HCL 13171251671 Active Alina Castaneda MD PhD Active CYCLOBENZAPRINE HCL 10 MG TABS 1 tablet by mouth three times daily, scheduled CYCLOBENZAPRINE HCL 23227711384 No Longer Active Alina Castaneda MD PhD Active HUMALOG 100 UNIT/ML SOLN Take 20 units with breakfast, 10u with lunch and suppetr. INSULIN LISPRO (HUMAN) 00517720367 No Longer Active Alina Castaneda MD PhD Active TRUETEST TEST STRP check sugars 4x/day GLUCOSE BLOOD 95405282833 No Longer Active Alina Castaneda MD PhD Active MORPHINE SULFATE 30 MG TABS 1 pill by mouth twice daily, for pain MORPHINE SULFATE 89253995398 Active Mima Erazo FOOD BAGGING MACHINE OPERATOR Active ACYCLOVIR 400 MG ORAL TABS 1 pill three times daily x 5 days, for cold sore outbreak ACYCLOVIR 32754716815 No Longer Active Alina Castaneda MD PhD Active PENICILLIN V POTASSIUM 500 MG TABS 1 pill by mouth three times daily PENICILLIN V POTASSIUM 56740124108 No Longer Active Alina aCstaneda MD PhD Active UROXATRAL 10 MG WY46F-PNO Take 1 tablet by mouth daily ALFUZOSIN HCL 51373363359 No Longer Active Alina Castaneda MD PhD Active THIOTHIXENE 5 MG CAPS by mouth twice a day THIOTHIXENE 81580126098 No Longer Active Alina Castaneda MD PhD Active ZYPREXA 7.5 MG TABS 1 at HS OLANZAPINE 61819213200 No Longer Active Alina Castaneda MD PhD Active BD INSULIN SYRINGE 28G X 1/2" 1 ML MISC 1 four times per day INSULIN SYRINGE-NEEDLE U-100 30526779108 Active Marvel MARROQUIN Active DETROL LA 4 MG [id number]-JHM Take 1 tablet by mouth daily TOLTERODINE TARTRATE 21961605084 No Longer Active Alina Castaneda MD PhD Active TERESE CONTOUR TEST STRP monitor blood sugars 3x/day GLUCOSE BLOOD 34190268843 No Longer Active Alina Castaneda MD PhD Active EQL TRUETEST TEST STRP Test blood sugar TID GLUCOSE BLOOD 13216168305 No Longer Active Alina Castaneda MD PhD Active FLUTICASONE PROPIONATE 50 MCG/ACT SUSP 2 sprays each nostril qDay x 30 days FLUTICASONE PROPIONATE 39967182615 No Longer Active Alina Castaneda MD PhD Active IBUPROFEN 200 MG TABS 1 Q 6 hr. PRN IBUPROFEN 77642608630 No Longer Active Alina Castaneda MD PhD Active NIACIN ER 500 MG CR-TABS 4 qHS (for triglycerides) NIACIN 76087161777 No Longer Active Alina Castaneda MD PhD Active ALFUZOSIN HCL ER 10 MG [id number]-KDV 1 tablet daily ALFUZOSIN HCL 52027352007 Active Vanessa Hickey MD Active SAPHRIS 5 MG SUBL by mouth twice a day ASENAPINE MALEATE 67803208874 No Longer Active Marvel MARROQUIN Active ACETAMINOPHEN 500 MG TABS 2 Q 6 hr. PRN ACETAMINOPHEN 03472320924 No Longer Active Marvel MARROQUIN Active ORPHENADRINE CITRATE ER 100 MG [id number] 1 every 12 hr. as needed ORPHENADRINE CITRATE 86596625780 No Longer Active Alina Castaneda MD PhD Active NIACIN CR 500 MG CR-TABS 2 qHS NIACIN 18888363794 No Longer Active Alina Castaneda MD PhD Active AMOXICILLIN 500 MG CAPS 2 po BID x 10 days AMOXICILLIN 77913872561 No Longer Active Alina Castaneda MD PhD Active HYDROCODONE-ACETAMINOPHEN 7.5-325 MG TABS 1 four times a day as needed for pain HYDROCODONE-ACETAMINOPHEN 52397090187 No Longer Active Alina Castaneda MD PhD Active DOXEPIN HCL 10 MG CAPS Take 1 tablet by mouth daily DOXEPIN HCL 38442491117 No Longer Active Salina Han A Active NAVANE 10 MG CAPS 1/2 tablet twice a day THIOTHIXENE No Longer Active Salina Han A Active CYCLOBENZAPRINE HCL 10 MG TABS 1/2 tablet by mouth every 8 hours as needed for muscle spasms CYCLOBENZAPRINE HCL 07190257294 No Longer Active Alina Castaneda MD PhD Active BACTROBAN 2 % CREAM apply to ear and nose twice daily MUPIROCIN CALCIUM 51701693327 No Longer Active Alina Castaneda MD PhD Active HYDROCODONE-ACETAMINOPHEN 5-325 MG TABS take one tablet by mouth every four hours as needed for pain HYDROCODONE-ACETAMINOPHEN 07042152399 No Longer Active Alina Castaneda MD PhD Active ZOLPIDEM TARTRATE 10 MG TABS take at bedtime ZOLPIDEM TARTRATE 11836821284 Active Alina Castaneda MD PhD Active ZYPREXA 5 MG TABS take one tablet by mouth every evening OLANZAPINE 90516673745 No Longer Active Alina Castaneda MD PhD Active ALBUTEROL SULFATE 0.083 % NEBU SOLN one vial per nebulizer TID and PRN cough/ soa ALBUTEROL SULFATE 62583149602 No Longer Active Alina Castaneda MD PhD Active GUAIFENESIN 600 MG FJ63F-YLQ 1 tablet by mouth twice daily if needed for cough GUAIFENESIN 12826605782 No Longer Active Marvel MARROQUIN Active AZITHROMYCIN 500 MG SOLR 1 po q day AZITHROMYCIN 91749341993 No Longer Active Alina Castaneda MD PhD Active PROMETHAZINE-CODEINE 6.25-10 MG/5ML SYRP 1 tsp po q 6 hours prn cough PROMETHAZINE-CODEINE 65901272630 No Longer Active Ailna Castaneda MD PhD Active CEFDINIR 300 MG CAPS by mouth twice a day CEFDINIR 98462571513 No Longer Active Alina Castaneda MD PhD Active METFORMIN HCL 500 MG SR63Q-LTB Take 3 tablets by mouth everyday METFORMIN HCL 96921197364 No Longer Active Alina Castaneda MD PhD Active LEVEMIR 100 UNIT/ML SOLN 90 units SQ qHS INSULIN DETEMIR 17553812227 No Longer Active Marvel MARROQUIN Active TOPROL XL 100 MG [id number]-PBV 1 @ HS METOPROLOL SUCCINATE 48843131193 No Longer Active Marvel MARROQUIN Active ALLOPURINOL 300 MG TABS Take one by mouth daily ALLOPURINOL 98128518822 Active Alina Castaneda MD PhD Active ZYPREXA 10 MG TABS Take one by mouth daily OLANZAPINE 58311346885 No Longer Active Alina Castaneda MD PhD Active NOVOLOG 100 UNIT/ML SOLN 40 units with every meal INSULIN ASPART 34171419737 No Longer Active Alina Castaneda MD PhD Active VERAPAMIL HCL CR 120 MG TAB CR 1 qPM VERAPAMIL HCL 58020327018 No Longer Active Salina Emely ROJAS Active ZYPREXA 15 MG TABS Take 1 tablet by mouth daily OLANZAPINE 77188760094 No Longer Active Marvel MARROQUIN Active LISINOPRIL 20 MG TABS 1 BID LISINOPRIL 14100333539 Active Alina Castaneda MD PhD Active ALBUTEROL SULFATE (2.5 MG/3ML) 0.083% NEBU 1 neb tid and prn cough ALBUTEROL SULFATE 95445977557 No Longer Active Alina Castaneda MD PhD Active TRAVATAN Z 0.004 % SOLN 1 gtt each eye daily TRAVOPROST 75599936556 Active CRYSTAL Suarez Active LANTUS 100 UNIT/ML SOLN 60 units sq q hs INSULIN GLARGINE 28414349298 No Longer Active CRYSTAL Suarez Active ALBUTEROL SULFATE (2.5 MG/3ML) 0.083% NEBU 1 neb tid and prn cough ALBUTEROL SULFATE (2.5 MG/3ML) 0.083% NEBU 731210 ALBUTEROL SULFATE Inactive ZYPREXA 15 MG TABS Take 1 tablet by mouth daily ZYPREXA 15 MG TABS 695926 OLANZAPINE Inactive VERAPAMIL HCL CR 120 MG TAB CR 1 qPM VERAPAMIL HCL CR 120 MG TAB CR VERAPAMIL HCL Inactive ZYPREXA 10 MG TABS Take one by mouth daily ZYPREXA 10 MG TABS 939967 OLANZAPINE Inactive TOPROL XL 100 MG [id number]-RSF 1 @ HS TOPROL XL 100 MG JT92O-KOV METOPROLOL SUCCINATE Inactive LEVEMIR 100 UNIT/ML SOLN 90 units SQ qHS LEVEMIR 100 UNIT/ML SOLN INSULIN DETEMIR Inactive PROMETHAZINE-CODEINE 6.25-10 MG/5ML SYRP 1 tsp po q 6 hours prn cough PROMETHAZINE-CODEINE 6.25-10 MG/5ML SYRP 278998 PROMETHAZINE- CODEINE Inactive GUAIFENESIN 600 MG GK93P-FKS 1 tablet by mouth twice daily if needed for cough GUAIFENESIN 600 MG GE82P-JVU GUAIFENESIN Inactive ALBUTEROL SULFATE 0.083 % NEBU SOLN one vial per nebulizer TID and PRN cough/ soa ALBUTEROL SULFATE 0.083 % NEBU SOLN 966643 ALBUTEROL SULFATE Inactive ZYPREXA 5 MG TABS take one tablet by mouth every evening ZYPREXA 5 MG TABS 238851 OLANZAPINE Inactive HYDROCODONE-ACETAMINOPHEN 5-325 MG TABS take one tablet by mouth every four hours as needed for pain HYDROCODONE-ACETAMINOPHEN 5-325 MG TABS 835828 HYDROCODONE-ACETAMINOPHEN Inactive BACTROBAN 2 % CREAM apply to ear and nose twice daily BACTROBAN 2 % CREAM 230847 MUPIROCIN CALCIUM Inactive CYCLOBENZAPRINE HCL 10 MG TABS 1/2 tablet by mouth every 8 hours as needed for muscle spasms CYCLOBENZAPRINE HCL 10 MG TABS 207519 CYCLOBENZAPRINE HCL Inactive NAVANE 10 MG CAPS 1/2 tablet twice a day NAVANE 10 MG CAPS THIOTHIXENE Inactive DOXEPIN HCL 10 MG CAPS Take 1 tablet by mouth daily DOXEPIN HCL 10 MG CAPS 4489098 DOXEPIN HCL Inactive HYDROCODONE-ACETAMINOPHEN 7.5-325 MG TABS 1 four times a day as needed for pain HYDROCODONE-ACETAMINOPHEN 7.5-325 MG TABS 321227 HYDROCODONE-ACETAMINOPHEN Inactive NIACIN CR 500 MG CR-TABS 2 qHS NIACIN CR 500 MG CR- TABS NIACIN Inactive ORPHENADRINE CITRATE ER 100 MG VP74W-VNV 1 every 12 hr. as needed ORPHENADRINE CITRATE ER 100 MG SM34Q-EKI ORPHENADRINE CITRATE Inactive ACETAMINOPHEN 500 MG TABS 2 Q 6 hr. PRN ACETAMINOPHEN 500 MG TABS 644493 ACETAMINOPHEN Inactive SAPHRIS 5 MG SUBL by mouth twice a day SAPHRIS 5 MG SUBL ASENAPINE MALEATE Inactive NIACIN ER 500 MG CR-TABS 4 qHS (for triglycerides) NIACIN ER 500 MG CR-TABS NIACIN Inactive IBUPROFEN 200 MG TABS 1 Q 6 hr. PRN IBUPROFEN 200 MG TABS 629391 IBUPROFEN Inactive FLUTICASONE PROPIONATE 50 MCG/ACT SUSP 2 sprays each nostril qDay x 30 days FLUTICASONE PROPIONATE 50 MCG/ACT SUSP 857828 FLUTICASONE PROPIONATE Inactive EQL TRUETEST TEST STRP Test blood sugar TID EQL TRUETEST TEST STRP GLUCOSE BLOOD Inactive TERESE CONTOUR TEST STRP monitor blood sugars 3x/day TERESE CONTOUR TEST STRP GLUCOSE BLOOD Inactive DETROL LA 4 MG [id number] Take 1 tablet by mouth daily DETROL LA 4 MG DJ63F-OSB TOLTERODINE TARTRATE Inactive ZYPREXA 7.5 MG TABS 1 at HS ZYPREXA 7.5 MG TABS 195382 OLANZAPINE Inactive THIOTHIXENE 5 MG CAPS by mouth twice a day THIOTHIXENE 5 MG CAPS 727745 THIOTHIXENE Inactive UROXATRAL 10 MG ZR51O-WVY Take 1 tablet by mouth daily UROXATRAL 10 MG HW96G-RMQ ALFUZOSIN HCL Inactive ACYCLOVIR 400 MG ORAL TABS 1 pill three times daily x 5 days, for cold sore outbreak ACYCLOVIR 400 MG ORAL TABS 332396 ACYCLOVIR Inactive TRUETEST TEST STRP check sugars 4x/day TRUETEST TEST STRP GLUCOSE BLOOD Inactive HUMALOG 100 UNIT/ML SOLN Take 20 units with breakfast, 10u with lunch and suppetr. HUMALOG 100 UNIT/ML SOLN INSULIN LISPRO ( HUMAN) Inactive CYCLOBENZAPRINE HCL 10 MG TABS 1 tablet by mouth three times daily, scheduled CYCLOBENZAPRINE HCL 10 MG TABS 599616 CYCLOBENZAPRINE HCL Inactive ACCU-CHEK ROSA INVITR STRP use strips with device to check blood sugars 3 times daily ACCU-CHEK ROSA INVITR STRP GLUCOSE BLOOD Inactive ACCU-CHEK ROSA UZMA Use device to check blood sugars ACCU-CHEK ROSA UZMA BLOOD GLUCOSE MONITORING SUPPL Inactive FLUVOXAMINE MALEATE 100 MG ORAL TABS Take 1/2 tab at noon FLUVOXAMINE MALEATE 100 MG ORAL TABS 154669 FLUVOXAMINE MALEATE Inactive FLUVOXAMINE MALEATE 100 MG TABS Take one (1) tablet by mouth am, 1/2 at noon FLUVOXAMINE MALEATE 100 MG TABS 323388 FLUVOXAMINE MALEATE Inactive BACTROBAN 2 % CREAM Apply to affected area BID for up to 10 days BACTROBAN 2 % CREAM 641955 MUPIROCIN CALCIUM Inactive NOVOFINE 32G X 6 MM MISC use one four times per day NOVOFINE 32G X 6 MM MISC INSULIN PEN NEEDLE Inactive TRAZODONE HCL 100 MG ORAL TABS 1 tab by mouth for sleep TRAZODONE HCL 100 MG ORAL TABS 747206 TRAZODONE HCL Inactive LOVAZA 1 GM CAPS 4 daily (for triglycerides) LOVAZA 1 GM CAPS 124915 BPJUH-8-EJNE ETHYL ESTERS Inactive METFORMIN HCL ER 500 MG KR87O-FAH Take three tablets by mouth everyday METFORMIN HCL ER 500 MG ZB06U-FWM METFORMIN HCL Inactive METOPROLOL SUCCINATE 100 MG AU03S-NZS 1 by mouth daily for blood pressure METOPROLOL SUCCINATE 100 MG TD01D-GHF METOPROLOL SUCCINATE Inactive AMITIZA 24 MCG ORAL CAPS Take one capsule BID for constipation. AMITIZA 24 MCG ORAL CAPS LUBIPROSTONE Inactive TOLTERODINE TARTRATE 2 MG TABS 1 pill twice daily, for bladder TOLTERODINE TARTRATE 2 MG TABS 041723 TOLTERODINE TARTRATE Inactive CEFDINIR 300 MG CAPS by mouth twice a day CEFDINIR 300 MG CAPS 132687 CEFDINIR Inactive AZITHROMYCIN 500 MG SOLR 1 po q day AZITHROMYCIN 500 MG SOLR 84956354310 AZITHROMYCIN Inactive AMOXICILLIN 500 MG CAPS 2 po BID x 10 days AMOXICILLIN 500 MG CAPS 801907 AMOXICILLIN Inactive PENICILLIN V POTASSIUM 500 MG TABS 1 pill by mouth three times daily PENICILLIN V POTASSIUM 500 MG TABS 077960 PENICILLIN V POTASSIUM Inactive KEFLEX 500 MG CAP 1 po BID x 7 days KEFLEX 500 MG CAP 889527 CEPHALEXIN Inactive Immunizations Vaccine Administration Date Value [...] Fluvirin, Fluarix, Agriflu(>=18 yo)) Fluzone (>3 yrs.) [[id number]] Influenza, seasonal, injectable pneumococcal immunization administered Pneumovax [...] E&M - 3141-9 238 [lb_av] Weight Measured Diagnostic Results Date Name Value Unit Range Description Lab Report: Basic Metabolic Panel, HGBA1C, MICROALBUMIN - Chemistry sodium, serum 137 mmol/L 914-372 9850/05/19 potassium, serum 5.2 mmol/L 3.5-5.2 chloride, serum [...] Panel - Chemistry sodium, serum 137 mmol/L 099-995 7522/10/12 potassium, serum 4.8 mmol/L 3.5-5.2 chloride, serum 102 mmol/L 98-107 carbon dioxide, venous blood 27.6 mmol/L 21.0-32.0 blood glucose 168 mg/dL 65-110 calcium, serum 9.0 mg/dL 8.5-10.1 urea nitrogen, blood 15 mg/dL 7-18 creatinine, serum 1.04 mg/dL 0.55-1.30 sodium, serum 138 mmol/L 014-537 1046/11/11 potassium, serum 4.7 mmol/L 3.5-5.2 chloride, serum [...] % 11.6-14.8 platelet count 240 10^3/MM^3 10*3/mm3 118-485 0747/11/11 leukocyte count, blood 9.6 10^3/MM^3 10*3/mm3 4.6-10.2 [...] count 252 10^3/MM^3 10*3/mm3 142-424 Lab Report: Chlamydia/GC APTIMA/53107, HIV-1/2 Agn/Dominga/47482, RPR (DX) W ... - Chemistry hepatitis B surface antigen NON-REACTIVE NON-REACTIVE Lab Report: Chlamydia/GC APTIMA/04864, HIV-1/2 Agn/Dominga/39130, RPR (DX) W ... - Lab chlamydia DNA probe NOT DETECTED NOT DETECTED Lab Report: Chlamydia/GC APTIMA/32218, HIV-1/2 Agn/Dominga/85810, RPR (DX) W ... - Microbiology Neisseria gonorrhoeae DNA probe NOT DETECTED NOT DETECTED Lab Report: Chlamydia/GC APTIMA/88984, HIV-1/2 Agn/Dominga/96945, RPR (DX) W ... - Serology rapid [...] 383 mg/dL 30-200 cholesterol, serum 131 mg/dL 854-406 9761/06/03 albumin/creatinine ratio, urine < 30 mg/g mg/g{creat} 0-29 alanine aminotransferase (SGPT), serum 112 U/L 12-78 [...] 4.7 mg/dL 2.6-7.2 cholesterol, serum 142 mg/dL 809-706 0035/06/26 triglyceride, serum, fasting 272 mg/dL 30-200 HDL [...] negative Encounters Code Encounter Date Provider Facility [facility]-05331 Level 3 Est. Patient 14:39:00 YARD SPOTTER Vanessa Hickey MD [facility]-93658 Level 2 Est. Patient 18:43:34 CDT Mima Erazo [facility]-59594 Level 3 Est. Patient 16:22:09 CDT Cherelle Avila [facility]-51565 Level 4 Est. Patient 17:55:14 CDT Mima Erazo [facility] CPT-01108 Level 2 Est. Patient 17:13:21 CDT Alina Castaneda MD PhD [facility]-04463 Level 3 Est. Patient 14:46:15 CDT Vanessa Hickey MD [facility]12935 Level 3 Est. Patient 09:34:56 CDT Alina Castaneda MD PhD [facility]19667 Level 3 Est. Patient 21:40:19 CDT Mima Erazo [facility]-46901 Level 3 Est. Patient 09:26:40 CDT Marvel Charles [facility]-86793 Level 3 Est. Patient 12:36:43 CDT Vanessa Hickey MD [facility]50834 Level 3 Est. Patient 12:57:49 CDT Vanessa Hickey MD [facility]05611 Level 3 Est. Patient 00:28:25 CDT Alina Castaneda MD [facility]-86100 Level 2 Est. Patient 12:52:14 CDT Alina Castaneda MD [facility]-31223 Level 3 Est. Patient 11:51:18 YARD SPOTTER Alina Castaneda MD [facility]-49520 Level 3 Est. Patient 10:09:22 YARD SPOTTER Alina Castaneda MD [facility]-74132 Level 3 Est. Patient 14:36:26 YARD SPOTTER Marvel Charles [facility]-57813 Level 3 Est. Patient 13:34:47 YARD SPOTTER Alina Castaneda MD [facility]30431 Level 3 Est. Patient 19:52:08 YARD SPOTTER Alina Castaneda MD [facility]-40777 Level 3 Est. Patient 10:01:51 [facility]-12339 Level 3 Est. Patient 21:54:06 CDT Vanessa Hickey MD [facility]-96154 Level 3 Est. Patient 08:54:46 CDT Alina Castaneda MD [facility]-48181 Level 3 Est. Patient 09:32:11 CDT Marvel Charles [facility]-80424 Level 3 Est. Patient 12:02:49 CDT Alina Castaneda MD [facility]-13706 Level 3 Est. Patient 19:17:33 CDT Alina Castaneda MD [facility]-85145 Level 3 Est. Patient 13:19:10 CDT Marvel Charles [facility]-88805 Level 3 Est. Patient 08:20:05 CDT Alina Castaneda MD [facility]29883 Level 3 Est. Patient 15:17:18 CDT Alina Castaneda MD [facility]-72722 Level 3 Est. Patient 14:25:36 YARD SPOTTER Marvel Charles [facility] CPT-63174 Level 3 Est. Patient 10:09:15 YARD SPOTTER Marvel Charles [facility] CPT-69348 Level 3 Est. Patient 21:28:43 CDT Alina Castaneda MD [facility]-50023 Level 3 Est. Patient 15:20:11 CDT Marvel Thurstonestela [facility]-44887 Level 4 Est. Patient 19:08:12 CDT Alina Castaneda MD [facility]-25029 Level 3 Est. Patient 15:06:39 [facility]T [facility]-15163 Level 4 Est. Patient 17:48:15 CDT Alina Castaneda MD [facility]-30849 Level 3 Est. Patient 14:53:49 CDT Alina Castaneda MD [facility]-48967 Level 3 Est. Patient 09:35:16 CDT Alina Castaneda MD [facility]-96332 Level 3 Est. Patient 12:23:22 CDT Alina Castaneda MD [facility] CPT-94932 Level 3 Est. Patient 16:19:15 CDT Alina Castaneda MD [facility]-42053 Level 3 Est. Patient 21:39:56 YARD SPOTTER Alina Castaneda MD [facility]-51453 Level 4 Est. Patient 14:12:56 YARD SPOTTER Alina Castaneda MD [facility]-22580 Level 2 Est. Patient 15:34:57 YARD SPOTTER Alina Castaneda MD [facility]-88268 Level 3 Est. Patient 12:17:04 YARD SPOTTER Alina Castaneda MD [facility]-68307 Level 3 Est. Patient 09:18:18 YARD SPOTTER Marvel [facility]-60641 Level 2 Est. Patient 21:50:24 CDT Alina Castaneda MD [facility]-15418 Level 3 Est. Patient 09:17:28 CDT [facility]-59749 Level 4 Est. Patient 18:54:02 CDT Alina Castaneda MD [facility]-21423 Level 3 Est. Patient 10:47:10 CDT Alina Castaneda MD [facility]-55987 Level 3 Est. Patient 09:22:20 CDT Marvel [facility]-91856 Level 3 Est. Patient 16:39:43 CDT Marvel [facility]-85823 Level 3 Est. Patient 16:05:16 CDT Alina Castaneda MD [facility]-52329 Level 3 Est. Patient 00:29:15 CDT Alina Castaneda MD [facility]-40265 Level 3 Est. Patient 10:49:22 [employer] [facility]55772 Level 3 Est. Patient 21:30:19 YARD [employer] Alina Castaneda MD [facility]-59217 Level 4 Est. Patient 17:04:11 [employer] Marvel [facility]-34130 Level 3 Est. Patient 15:34:11 YARD [employer]TER [facility] CPT-89066 Level 2 Est. Patient 12:51:58 Y[employer] Alina Castaneda MD PhD [facility] CPT-76044 Level 3 Est. Patient 13:20:01 [employer] Alina Castaneda MD PhD [facility] CPT-76117 Level 3 Est. Patient 09:23:35 CDT Alina Castaneda MD PhD [facility] Procedures Code Procedure Name Date Entry Date Standard Description CPT-00574 Bladder Scan 14:39:01 [employer] CPT-TCMM Transitional Care Mgmt-Moderate 10:30:19 [employer] CPT-64672 Bladder Scan 12:36:44 CDT CPT-87454 Bladder Scan 21:54:06 CDT CPT-G0008 Administration of Influenza Virus Vaccine 13:05:26 CDT CPT-07464 Fluzone Quadrivalent Intramuscular Suspension 0.5 ML 13: 05:26 CDT CPT-62026 Administration single or combination vaccine inc oral 11 :49:51 CDT CPT-53497 Pneumovax 11:49:51 CDT CPT-56696 Ribs unilateral 2V 12:37:22 [employer] CPT-05125 Chest 2V Frontal and Lat 17:15:26 CDT CPT-46043 Abx/Therapy Injection 18:54:02 CDT CPT-J0696 Rocephin 1000 mg (Ceftriaxone) 16:00:32 CDT CPT-20447 Chest 2V Frontal and Lat 15:26:45 CDT CPT-85183 Chest 2V Frontal and Lat 10:23:27 CDT CPT-62411 Venipuncture Draw Fee 10:11:00 CDT CPT-96070 Administration single or combination vaccine inc oral 11 :56:38 CDT CPT-81805 Influenza split virus > age 3 11:56:38 CDT CPT-93531 Venipuncture Draw Fee 08:49:54 [employer] CPT-04060 EKG Trac and Interp 17:54:19 YARD [employer]TER
--- OUTSIDE RECORDS SUMMARY | 2018-07-02 14:02 | XMS REPORT | Clinical Summary ---
Author Author Admin, TERELL Organization [facility] Address Unknown Phone Unavailable Allergies, Adverse [...] unspecified DIABETES, TYPE 2 250.00 Inactive Alina Castaenda MD PhD Diabetes mellitus without mention of [...] stated as uncontrolled Dizziness 780.4 Resolved Alina Castaenda MD PhD Dizziness and giddiness Confusion 298.9 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 Erazo HUMAN RESOURCES TALENT MANAGER Benign paroxysmal positional vertigo Vertigo, benign paroxysmal position 386.11 Inactive Mima Erazo HUMAN RESOURCES TALENT MANAGER Benign paroxysmal positional vertigo High-risk sexual behavior V69.2 Active Alina Castaneda MD PhD High-risk sexual behavior Erectile dysfunction 302.72 Active Alina Castaneda MD PhD Psychosexual dysfunction with inhibited sexual excitement Constipation 564.00 Active Alina Castaneda MD PhD Constipation, unspecified Skin lesion 709.9 Active Alina Castaneda MD PhD Unspecified disorder of skin and subcutaneous tissue Malaise and fatigue 780.79 Active Cherelle Speaks HUMAN RESOURCES TALENT MANAGER Other malaise and fatigue Diarrhea 787.91 Active Cherelle Speaks HUMAN RESOURCES TALENT MANAGER Diarrhea PHARYNGITIS 462 Active Cherelle Speaks HUMAN RESOURCES TALENT MANAGER Acute pharyngitis Colitis 558.9 Active Mima Erazo HUMAN RESOURCES TALENT MANAGER Other and unspecified noninfectious gastroenteritis and colitis WOUND, OPEN, NOSE ICD-873.20 Inactive Alina Castaneda MD PhD DIABETES, TYPE 2 ICD-250.00 Inactive Alina Castaneda MD PhD HYPERTENSION ICD-401.9 Inactive Alina Castaneda MD PhD URI ICD-465.9 Inactive Alina Castaneda MD PhD CHEST PAIN ICD-786.50 Inactive Alina Castaneda MD PhD FH STROKE ICD-V17.1 Inactive Marvel Charles DE ICER FATIGUE ICD-780.79 Inactive Alina Castaneda MD PhD [...] PhD DIABETIC HYPOGLYCEMIA, TYPE II ICD-250.80 Inactive Marvle 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 Inactive Alina Castaneda [...] LANCETS 30G MISC 3 a day LANCETS 72628875429 Active Marvel MARROQUIN Active TOLTERODINE TARTRATE 2 MG TABS 1 pill twice daily, for bladder TOLTERODINE TARTRATE 02751454684 No Longer Active Vanessa Hickey MD Active AMITIZA 24 MCG ORAL CAPS Take one capsule BID for constipation. LUBIPROSTONE 94280745577 No Longer Active Vanessa Hickey MD Active LOMOTIL 2.5-0.025 MG ORAL TABS take 1-2 tabs PO after each stool, no more than 8 in 24 hours DIPHENOXYLATE-ATROPINE 93043957936 Active Grace ROJAS Active FLUVOXAMINE MALEATE 100 MG ORAL TABS take one tab every AM et HS, and take 1/ 2 tab at noon FLUVOXAMINE MALEATE 14965896284 Active Grace ROJAS Active METOPROLOL SUCCINATE 100 MG [id number] 1 by mouth daily for blood pressure METOPROLOL SUCCINATE 73413897683 No Longer Active Grace ROJAS Active METFORMIN HCL ER 500 MG [id number] Take three tablets by mouth everyday METFORMIN HCL 05055167711 No Longer Active Grace Azam RMA Active LOVAZA 1 GM CAPS 4 daily (for triglycerides) OMEGA-3- ACID ETHYL ESTERS 62948869515 No Longer Active Grace Azam RMA Active TRAZODONE HCL 100 MG ORAL TABS 1 tab by mouth for sleep TRAZODONE HCL 41631377428 No Longer Active Grace Azam RMA Active NOVOFINE 32G X 6 MM MISC use one four times per day INSULIN PEN NEEDLE 03330657763 No Longer Active Grace Azam RMA Active BACTROBAN 2 % CREAM Apply to affected area BID for up to 10 days MUPIROCIN CALCIUM 57029887847 No Longer Active Grace Azam RMA Active ZOFRAN 4 MG TABS 1 po q4hr PRN Nausea ONDANSETRON HCL 17520197742 Active Salina Emely RMA Active KEFLEX 500 MG CAP 1 po BID x 7 days CEPHALEXIN 69880890010 No Longer Active Cherelle Felixs HUMAN RESOURCES TALENT MANAGER Active FLUVOXAMINE MALEATE 100 MG TABS Take one (1) tablet by mouth am, 1/2 at noon FLUVOXAMINE MALEATE 29020095033 No Longer Active Mima Erazo APRN Active CORICIDIN HBP CONGESTION/COUGH 10-200 MG ORAL CAPS Take as directed on box as needed for cold/flu symptoms DEXTROMETHORPHAN-GUAIFENESIN 63992079415 Active Cherelle Speaks HUMAN RESOURCES TALENT MANAGER Active OMEGA-3 300 MG ORAL CAPS 4 caps by mouth daily OMEGA-3 FATTY ACIDS 35511295275 Active Cherelle Speaks HUMAN RESOURCES TALENT MANAGER Active FLUVOXAMINE MALEATE 100 MG ORAL TABS Take 1/2 tab at noon FLUVOXAMINE MALEATE 70307062240 No Longer Active Cherelle Speaks HUMAN RESOURCES TALENT MANAGER Active [facility] LUBRICANT EYE DROPS 0.4-0.3 % OPHTH SOLN POLYETHYL GLYCOL-PROPYL GLYCOL 67479417671 Active Mima Yokum HUMAN RESOURCES TALENT MANAGER Active CLONAZEPAM 1 MG TABS 1/2 pill by mouth three times daily CLONAZEPAM 22362594722 Active Alina Castaneda MD PhD Active MIRALAX POWD 17g by mouth daily, for constipation POLYETHYLENE GLYCOL 3350 38382458755 Active Alina Castaneda MD PhD Active HYDROCODONE-ACETAMINOPHEN 5-325 MG TABS 2 tabs by mouth three times daily for pain HYDROCODONE-ACETAMINOPHEN 63040155055 Active Mima Erazo HUMAN RESOURCES TALENT MANAGER Active HUMALOG KWIKPEN 100 UNIT/ML SC SOPN 20 units with breakfast, 10 units with lunch, 10 units with dinner, for diabetes INSULIN LISPRO (HUMAN ) 94816988597 Active Alina Castaneda MD PhD Active LEVEMIR FLEXTOUCH 100 UNIT/ML SC SOPN 70 units SQ each evening, for diabetes INSULIN DETEMIR 73738965097 Active Alina Castaneda MD PhD Active LATUDA 120 MG ORAL TABS 1 pill by mouth nightly LURASIDONE HCL 02662959474 Active Alina Castaneda MD PhD Active COLACE 100 MG CAPS 1 pill by mouth twice daily, for constipation DOCUSATE SODIUM 05002929326 Active Alina Castaneda MD PhD Active TRUETEST TEST STRP check blood sugars 3x/day GLUCOSE BLOOD 76293811649 Active Marvel MARROQUIN Active ACCU-CHEK ROSA UZMA Use device to check blood sugars BLOOD GLUCOSE MONITORING SUPPL 40296737981 No Longer Active Marvel MARROQUIN Active ACCU-CHEK ROSA INVITR STRP use strips with device to check blood sugars 3 times daily GLUCOSE BLOOD 20165485820 No Longer Active Marvel MARROQUIN Active VERAPAMIL HCL ER 180 MG ORAL CR-TABS 1 pill by mouth twice daily, for migraine prevention VERAPAMIL HCL 10982547513 Active Alina Castaneda MD PhD Active CYCLOBENZAPRINE HCL 10 MG TABS 1 tablet by mouth three times daily, scheduled CYCLOBENZAPRINE HCL 22468973012 No Longer Active Alina Castaneda MD PhD Active HUMALOG 100 UNIT/ML SOLN Take 20 units with breakfast, 10u with lunch and suppetr. INSULIN LISPRO (HUMAN) 18497471940 No Longer Active Alina Castaneda MD PhD Active TRUETEST TEST STRP check sugars 4x/day GLUCOSE BLOOD 40250079288 No Longer Active Alina Castaneda MD PhD Active MORPHINE SULFATE 30 MG TABS 1 pill by mouth twice daily, for pain MORPHINE SULFATE 86248192418 Active Mima Erazo HUMAN RESOURCES TALENT MANAGER Active ACYCLOVIR 400 MG ORAL TABS 1 pill three times daily x 5 days, for cold sore outbreak ACYCLOVIR 63073645583 No Longer Active Alina Castaneda MD PhD Active PENICILLIN V POTASSIUM 500 MG TABS 1 pill by mouth three times daily PENICILLIN V POTASSIUM 44273293343 No Longer Active Alina Castaneda MD PhD Active UROXATRAL 10 MG [id number] Take 1 tablet by mouth daily ALFUZOSIN HCL 07474972497 No Longer Active Alina Castaneda MD PhD Active THIOTHIXENE 5 MG CAPS by mouth twice a day THIOTHIXENE 58818939783 No Longer Active Alina Castaneda MD PhD Active ZYPREXA 7.5 MG TABS 1 at HS OLANZAPINE 96262895535 No Longer Active Alina Castaneda MD PhD Active BD INSULIN SYRINGE 28G X 1/2" 1 ML MISC 1 four times per day INSULIN SYRINGE-NEEDLE U-100 34996222820 Active [facility] Gurdeepglestela [facility] Active DETROL LA 4 MG [id number] Take 1 tablet by mouth daily TOLTERODINE TARTRATE 09221994436 No Longer Active Alina Castaneda MD PhD Active TERESE CONTOUR TEST STRP monitor blood sugars 3x/day GLUCOSE BLOOD 52327716360 No Longer Active Alina Castaneda MD PhD Active EQL TRUETEST TEST STRP Test blood sugar TID GLUCOSE BLOOD 13042135993 No Longer Active Alina Castaneda MD PhD Active FLUTICASONE PROPIONATE 50 MCG/ACT SUSP 2 sprays each nostril qDay x 30 days FLUTICASONE PROPIONATE 67410826136 No Longer Active Alina Castaneda MD PhD Active IBUPROFEN 200 MG TABS 1 Q 6 hr. PRN IBUPROFEN 66655918560 No Longer Active Alina Castaneda MD PhD Active NIACIN ER 500 MG CR-TABS 4 qHS (for triglycerides) NIACIN 67048379939 No Longer Active Alina Castaneda MD PhD Active ALFUZOSIN HCL ER 10 MG [id number]-RPQ 1 tablet daily ALFUZOSIN HCL 00003049566 Active Vanessa Hickey MD Active SAPHRIS 5 MG SUBL by mouth twice a day ASENAPINE MALEATE 33182048219 No Longer Active Mallashondaeh Ziglari DE ICER Active ACETAMINOPHEN 500 MG TABS 2 Q 6 hr. PRN ACETAMINOPHEN 11782409770 No Longer Active Maliheh Ziglari DE ICER Active ORPHENADRINE CITRATE ER 100 MG [id number] 1 every 12 hr. as needed ORPHENADRINE CITRATE 93433006778 No Longer Active Alina Castaneda MD PhD Active NIACIN CR 500 MG CR-TABS 2 qHS NIACIN 48074513414 No Longer Active Alina Castaneda MD PhD Active AMOXICILLIN 500 MG CAPS 2 po BID x 10 days AMOXICILLIN 16386727621 No Longer Active Alina Castaneda MD PhD Active HYDROCODONE-ACETAMINOPHEN 7.5-325 MG TABS 1 four times a day as needed for pain HYDROCODONE-ACETAMINOPHEN 06584906549 No Longer Active Alina Castaneda MD PhD Active DOXEPIN HCL 10 MG CAPS Take 1 tablet by mouth daily DOXEPIN HCL 07545898558 No Longer Active Salina ROJAS Active NAVANE 10 MG CAPS 1/2 tablet twice a day THIOTHIXENE No Longer Active Salina ROJAS Active CYCLOBENZAPRINE HCL 10 MG TABS 1/2 tablet by mouth every 8 hours as needed for muscle spasms CYCLOBENZAPRINE HCL 28957862695 No Longer Active Alina Castaneda MD PhD Active BACTROBAN 2 % CREAM apply to ear and nose twice daily MUPIROCIN CALCIUM 26324911917 No Longer Active Alina Castaneda MD PhD Active HYDROCODONE-ACETAMINOPHEN 5-325 MG TABS take one tablet by mouth every four hours as needed for pain HYDROCODONE-ACETAMINOPHEN 24184160761 No Longer Active Alina Castaneda MD PhD Active ZOLPIDEM TARTRATE 10 MG TABS take at bedtime ZOLPIDEM TARTRATE 34449728507 Active Alina Castaneda MD PhD Active ZYPREXA 5 MG TABS take one tablet by mouth every evening OLANZAPINE 23216070105 No Longer Active Alina Castaneda MD PhD Active ALBUTEROL SULFATE 0.083 % NEBU SOLN one vial per nebulizer TID and PRN cough/ soa ALBUTEROL SULFATE 93728804302 No Longer Active Alina Castaneda MD PhD Active GUAIFENESIN 600 MG [id number]-GLE 1 tablet by mouth twice daily if needed for cough GUAIFENESIN 06544385635 No Longer Active Marvel MARROQUIN Active AZITHROMYCIN 500 MG SOLR 1 po q day AZITHROMYCIN 26030938573 No Longer Active Alina Castaneda MD PhD Active PROMETHAZINE-CODEINE 6.25-10 MG/5ML SYRP 1 tsp po q 6 hours prn cough PROMETHAZINE-CODEINE 11137243148 No Longer Active Alina Castaneda MD PhD Active CEFDINIR 300 MG CAPS by mouth twice a day CEFDINIR 14001049849 No Longer Active Alina Castaneda MD PhD Active METFORMIN HCL 500 MG [id number]-[id number] Take 3 tablets by mouth everyday METFORMIN HCL 67272725717 No Longer Active Alina Castaneda MD PhD Active LEVEMIR 100 UNIT/ML SOLN 90 units SQ qHS INSULIN DETEMIR 97429756302 No Longer Active Marvel MARROQUIN Active TOPROL XL 100 MG [id number]-GTO 1 @ HS METOPROLOL SUCCINATE 43640280042 No Longer Active Marvel MARROQUIN Active ALLOPURINOL 300 MG TABS Take one by mouth daily ALLOPURINOL 00860045688 Active Alina Castaneda MD PhD Active ZYPREXA 10 MG TABS Take one by mouth daily OLANZAPINE 34855715868 No Longer Active Alian Castaneda MD PhD Active NOVOLOG 100 UNIT/ML SOLN 40 units with every meal INSULIN ASPART 71473861692 No Longer Active Alina Castaneda MD PhD Active VERAPAMIL HCL CR 120 MG TAB CR 1 qPM VERAPAMIL HCL 88623854602 No Longer Active Salina ROJAS Active ZYPREXA 15 MG TABS Take 1 tablet by mouth daily OLANZAPINE 58343170150 No Longer Active Marvel MARROQUIN Active LISINOPRIL 20 MG TABS 1 BID LISINOPRIL 67491315256 Active Alina Castaneda MD PhD Active ALBUTEROL SULFATE (2.5 MG/3ML) 0.083% NEBU 1 neb tid and prn cough ALBUTEROL SULFATE 25507461001 No Longer Active Alina Castaneda MD PhD Active TRAVATAN Z 0.004 % SOLN 1 gtt each eye daily TRAVOPROST 14372414833 Active CRYSTAL Suarez Active LANTUS 100 UNIT/ML SOLN 60 units sq q hs INSULIN GLARGINE 52779456660 No Longer Active CRYSTAL Suarez Active ALBUTEROL SULFATE (2.5 MG/3ML) 0.083% NEBU 1 neb tid and prn cough ALBUTEROL SULFATE (2.5 MG/3ML) 0.083% NEBU 765044 ALBUTEROL SULFATE Inactive ZYPREXA 15 MG TABS Take 1 tablet by mouth daily ZYPREXA 15 MG TABS 227698 OLANZAPINE Inactive VERAPAMIL HCL CR 120 MG TAB CR 1 qPM VERAPAMIL HCL CR 120 MG TAB CR VERAPAMIL HCL Inactive ZYPREXA 10 MG TABS Take one by mouth daily ZYPREXA 10 MG TABS 793790 OLANZAPINE Inactive TOPROL XL 100 MG [id number] 1 @ HS TOPROL XL 100 MG [id number]-VYJ METOPROLOL SUCCINATE Inactive LEVEMIR 100 UNIT/ML SOLN 90 units SQ qHS LEVEMIR 100 UNIT/ML SOLN INSULIN DETEMIR Inactive PROMETHAZINE-CODEINE 6.25-10 MG/5ML SYRP 1 tsp po q 6 hours prn cough PROMETHAZINE-CODEINE 6.25-10 MG/5ML SYRP 378171 PROMETHAZINE- CODEINE Inactive GUAIFENESIN 600 MG SY41V-CQU 1 tablet by mouth twice daily if needed for cough GUAIFENESIN 600 MG [id number]-AQQ GUAIFENESIN Inactive ALBUTEROL SULFATE 0.083 % NEBU SOLN one vial per nebulizer TID and PRN cough/ soa ALBUTEROL SULFATE 0.083 % NEBU SOLN 202938 ALBUTEROL SULFATE Inactive ZYPREXA 5 MG TABS take one tablet by mouth every evening ZYPREXA 5 MG TABS 457642 OLANZAPINE Inactive HYDROCODONE-ACETAMINOPHEN 5-325 MG TABS take one tablet by mouth every four hours as needed for pain HYDROCODONE-ACETAMINOPHEN 5-325 MG TABS 899527 HYDROCODONE-ACETAMINOPHEN Inactive BACTROBAN 2 % CREAM apply to ear and nose twice daily BACTROBAN 2 % CREAM 792232 MUPIROCIN CALCIUM Inactive CYCLOBENZAPRINE HCL 10 MG TABS 1/2 tablet by mouth every 8 hours as needed for muscle spasms CYCLOBENZAPRINE HCL 10 MG TABS 496150 CYCLOBENZAPRINE HCL Inactive NAVANE 10 MG CAPS 1/2 tablet twice a day NAVANE 10 MG CAPS THIOTHIXENE Inactive DOXEPIN HCL 10 MG CAPS Take 1 tablet by mouth daily DOXEPIN HCL 10 MG CAPS 8524141 DOXEPIN HCL Inactive HYDROCODONE-ACETAMINOPHEN 7.5-325 MG TABS 1 four times a day as needed for pain HYDROCODONE-ACETAMINOPHEN 7.5-325 MG TABS 314825 HYDROCODONE-ACETAMINOPHEN Inactive NIACIN CR 500 MG CR-TABS 2 qHS NIACIN CR 500 MG CR- TABS NIACIN Inactive ORPHENADRINE CITRATE ER 100 MG [id number] 1 every 12 hr. as needed ORPHENADRINE CITRATE ER 100 MG [id number]-EQR ORPHENADRINE CITRATE Inactive ACETAMINOPHEN 500 MG TABS 2 Q 6 hr. PRN ACETAMINOPHEN 500 MG TABS 012084 ACETAMINOPHEN Inactive SAPHRIS 5 MG SUBL by mouth twice a day SAPHRIS 5 MG SUBL ASENAPINE MALEATE Inactive NIACIN ER 500 MG CR-TABS 4 qHS (for triglycerides) NIACIN ER 500 MG CR-TABS NIACIN Inactive IBUPROFEN 200 MG TABS 1 Q 6 hr. PRN IBUPROFEN 200 MG TABS 978145 IBUPROFEN Inactive FLUTICASONE PROPIONATE 50 MCG/ACT SUSP 2 sprays each nostril qDay x 30 days FLUTICASONE PROPIONATE 50 MCG/ACT SUSP 645599 FLUTICASONE PROPIONATE Inactive EQL TRUETEST TEST STRP Test blood sugar TID EQL TRUETEST TEST STRP GLUCOSE BLOOD Inactive TERESE CONTOUR TEST STRP monitor blood sugars 3x/day TERESE CONTOUR TEST STRP GLUCOSE BLOOD Inactive DETROL LA 4 MG [id number] Take 1 tablet by mouth daily DETROL LA 4 MG [id number]-EJD TOLTERODINE TARTRATE Inactive ZYPREXA 7.5 MG TABS 1 at HS ZYPREXA 7.5 MG TABS 715764 OLANZAPINE Inactive THIOTHIXENE 5 MG CAPS by mouth twice a day THIOTHIXENE 5 MG CAPS 251588 THIOTHIXENE Inactive UROXATRAL 10 MG [id number]-UUD Take 1 tablet by mouth daily UROXATRAL 10 MG TR43S-[id number] ALFUZOSIN HCL Inactive ACYCLOVIR 400 MG ORAL TABS 1 pill three times daily x 5 days, for cold sore outbreak ACYCLOVIR 400 MG ORAL TABS 954724 ACYCLOVIR Inactive TRUETEST TEST STRP check sugars 4x/day TRUETEST TEST STRP GLUCOSE BLOOD Inactive HUMALOG 100 UNIT/ML SOLN Take 20 units with breakfast, 10u with lunch and suppetr. HUMALOG 100 UNIT/ML SOLN INSULIN LISPRO ( HUMAN) Inactive CYCLOBENZAPRINE HCL 10 MG TABS 1 tablet by mouth three times daily, scheduled CYCLOBENZAPRINE HCL 10 MG TABS 812167 CYCLOBENZAPRINE HCL Inactive ACCU-CHEK ROSA INVITR STRP use strips with device to check blood sugars 3 times daily ACCU-CHEK ROSA INVITR STRP GLUCOSE BLOOD Inactive ACCU-CHEK ROSA UZMA Use device to check blood sugars ACCU-CHEK ROSA UZMA BLOOD GLUCOSE MONITORING SUPPL Inactive FLUVOXAMINE MALEATE 100 MG ORAL TABS Take 1/2 tab at noon FLUVOXAMINE MALEATE 100 MG ORAL TABS 388542 FLUVOXAMINE MALEATE Inactive FLUVOXAMINE MALEATE 100 MG TABS Take one (1) tablet by mouth am, 1/2 at noon FLUVOXAMINE MALEATE 100 MG TABS 416044 FLUVOXAMINE MALEATE Inactive BACTROBAN 2 % CREAM Apply to affected area BID for up to 10 days BACTROBAN 2 % CREAM 945716 MUPIROCIN CALCIUM Inactive NOVOFINE 32G X 6 MM MISC use one four times per day NOVOFINE 32G X 6 MM MISC INSULIN PEN NEEDLE Inactive TRAZODONE HCL 100 MG ORAL TABS 1 tab by mouth for sleep TRAZODONE HCL 100 MG ORAL TABS 921567 TRAZODONE HCL Inactive LOVAZA 1 GM CAPS 4 daily (for triglycerides) LOVAZA 1 GM CAPS 979805 [id number]-[id number] ETHYL ESTERS Inactive METFORMIN HCL ER 500 MG NG97I-EZO Take three tablets by mouth everyday METFORMIN HCL ER 500 MG [id number]-CBQ METFORMIN HCL Inactive METOPROLOL SUCCINATE 100 MG RW68Y-JQK 1 by mouth daily for blood pressure METOPROLOL SUCCINATE 100 MG EM99V-IQJ METOPROLOL SUCCINATE Inactive AMITIZA 24 MCG ORAL CAPS Take one capsule BID for constipation. AMITIZA 24 MCG ORAL CAPS LUBIPROSTONE Inactive TOLTERODINE TARTRATE 2 MG TABS 1 pill twice daily, for bladder TOLTERODINE TARTRATE 2 MG TABS 591228 TOLTERODINE TARTRATE Inactive CEFDINIR 300 MG CAPS by mouth twice a day CEFDINIR 300 MG CAPS 129078 CEFDINIR Inactive AZITHROMYCIN 500 MG SOLR 1 po q day AZITHROMYCIN 500 MG SOLR 30704762103 AZITHROMYCIN Inactive AMOXICILLIN 500 MG CAPS 2 po BID x 10 days AMOXICILLIN 500 MG CAPS 659596 AMOXICILLIN Inactive PENICILLIN V POTASSIUM 500 MG TABS 1 pill by mouth three times daily PENICILLIN V POTASSIUM 500 MG TABS 240615 PENICILLIN V POTASSIUM Inactive KEFLEX 500 MG CAP 1 po BID x 7 days KEFLEX 500 MG CAP 320958 CEPHALEXIN Inactive Immunizations Vaccine Administration Date Value [...] Fluvirin, Fluarix, Agriflu(>=18 yo)) Fluzone (>3 yrs.) [[id number]] Influenza, seasonal, injectable pneumococcal immunization administered Pneumovax [...] MICROALBUMIN - Chemistry sodium, serum 137 mmol/L 305-628 3082/05/19 potassium, serum 5.2 mmol/L 3.5-5.2 chloride, serum [...] Panel - Chemistry sodium, serum 137 mmol/L 178-705 0753/10/12 potassium, serum 4.8 mmol/L 3.5-5.2 chloride, serum 102 mmol/L 98-107 carbon dioxide, venous blood 27.6 mmol/L 21.0-32.0 blood glucose 168 mg/dL 65-110 calcium, serum 9.0 mg/dL 8.5-10.1 urea nitrogen, blood 15 mg/dL 7-18 creatinine, serum 1.04 mg/dL 0.55-1.30 sodium, serum 138 mmol/L 242-609 8335/11/11 potassium, serum 4.7 mmol/L 3.5-5.2 chloride, serum [...] % 11.6-14.8 platelet count 252 10^3/MM^3 10*3/mm3 509-620 6095/10/12 leukocyte count, blood 5.8 10^3/MM^3 10*3/mm3 4.6-10.2 [...] 240 10^3/MM^3 10*3/mm3 142-424 Lab Report: Chlamydia/GC APTIMA/23554, HIV-1/2 Agn/Dominga/07814, RPR (DX) W ... - Chemistry hepatitis B surface antigen NON-REACTIVE NON-REACTIVE Lab Report: Chlamydia/GC APTIMA/71621, HIV-1/2 Agn/Dominga/62165, RPR (DX) W ... - Lab chlamydia DNA probe NOT DETECTED NOT DETECTED Lab Report: Chlamydia/GC APTIMA/16298, HIV-1/2 Agn/Dominga/28797, RPR (DX) W ... - Microbiology Neisseria gonorrhoeae DNA probe NOT DETECTED NOT DETECTED Lab Report: Chlamydia/GC APTIMA/64032, HIV-1/2 Agn/Dominga/96903, RPR (DX) W ... - Serology rapid plasma reagin antibody titer NON-REACTIVE NON-REACTIVE Lab Report: HGBA1C - Chemistry hemoglobin A1C, blood, as % of total hemoglobin 6.1 % 4.3-6.0 Lab Report: Lipid Panel, HEPATIC PANEL, MICROALBUMIN, CBC - Chemistry albumin/creatinine ratio, urine < 30 mg/g mg/g{creat} 0-29 cholesterol, serum 131 mg/dL 179-639 1888/06/03 triglyceride, serum, fasting 383 mg/dL 30-200 HDL [...] 4.7 mg/dL 2.6-7.2 cholesterol, serum 142 mg/dL 745-738 6581/06/26 triglyceride, serum, fasting 272 mg/dL 30-200 HDL [...] negative Encounters Code Encounter Date Provider Facility [facility]-[id number] Level 3 Est. Patient 14:39:00 FIRE DEPARTMENT MARINE ENGINEER Vanessa Hickey MD [facility]-23346 Level 2 Est. Patient 18:43:34 CDT Mima Erazo [facility] CPT-65810 Level 3 Est. Patient 16:22:09 CDT Cherelle Avila [facility] CPT-26225 Level 4 Est. Patient 17:55:14 CDT Mima Erazo [facility] CPT-59483 Level 2 Est. Patient 17:13:21 CDT Alina Castaneda MD PhD [facility]-32333 Level 3 Est. Patient 14:46:15 CDT Vanessa Hickey MD [facility]-62302 Level 3 Est. Patient 09:34:56 CDT Alina Castaneda MD PhD [facility]71468 Level 3 Est. Patient 21:40:19 CDT Mima Erazo [facility]05046 Level 3 Est. Patient 09:26:40 CDT Maliheh Ziglari [facility]-20486 Level 3 Est. Patient 12:36:43 CDT Vanessa Hickey MD [facility]-11639 Level 3 Est. Patient 12:57:49 CDT Vanessa Hickey MD [facility]-81814 Level 3 Est. Patient 00:28:25 CDT Alina Castaneda MD [facility]35206 Level 2 Est. Patient 12:52:14 CDT Alina Castaneda MD [facility]34264 Level 3 Est. Patient 11:51:18 FIRE DEPARTMENT MARINE ENGINEER Alina Castaneda MD [facility]33195 Level 3 Est. Patient 10:09:22 FIRE DEPARTMENT MARINE ENGINEER Alina Castaneda MD [facility]63309 Level 3 Est. Patient 14:36:26 FIRE DEPARTMENT MARINE ENGINEER Marvel Charles [facility]-29244 Level 3 Est. Patient 13:34:47 FIRE DEPARTMENT MARINE ENGINEER Alina Castaneda MD [facility]37157 Level 3 Est. Patient 19:52:08 FIRE DEPARTMENT MARINE ENGINEER Alina Castaneda MD [facility]53643 Level 3 Est. Patient 10:01:51 FIRE DEPARTMENT MARINE ENGINEER Marvel Charles [facility]-97294 Level 3 Est. Patient 21:54:06 CDT Vanessa Hickey MD [facility]04177 Level 3 Est. Patient 08:54:46 CDT Alina Castaneda MD [facility]99322 Level 3 Est. Patient 09:32:11 CDT Marvel Charles [facility]97436 Level 3 Est. Patient 12:02:49 CDT Alina Castaneda MD [facility]91791 Level 3 Est. Patient 19:17:33 CDT Alina Castaneda MD [facility]-17544 Level 3 Est. Patient 13:19:10 CDT Marvel Charles [facility]-41282 Level 3 Est. Patient 08:20:05 CDT Alina Castaneda MD [facility]-10723 Level 3 Est. Patient 15:17:18 CDT Alina Castaneda MD [facility]01004 Level 3 Est. Patient 14:25:36 FIRE DEPARTMENT MARINE ENGINEER Marvel Charles [facility]-75895 Level 3 Est. Patient 10:09:15 FIRE DEPARTMENT MARINE ENGINEER Marvel Charles [facility]-38273 Level 3 Est. Patient 21:28:43 CDT Alina Castaneda MD [facility]-19470 Level 3 Est. Patient 15:20:[address] [facility] Level 4 Est. Patient 19:08:12 CDT Alina Castaneda MD [facility]-39716 Level 3 Est. Patient 15:06:39 CDT Marvel Charles [facility]-11661 Level 4 Est. Patient 17:48:15 CDT Alina Castaneda MD [facility]-28535 Level 3 Est. Patient 14:53:49 CDT Alina Castaneda MD [facility]-78876 Level 3 Est. Patient 09:35:16 CDT Alina Castaneda MD [facility]-82337 Level 3 Est. Patient 12:23:22 CDT Alina Castaneda MD [facility]-01467 Level 3 Est. Patient 16:19:15 CDT Alina Castaneda MD [facility]-74806 Level 3 Est. Patient 21:39:56 FIRE DEPARTMENT MARINE ENGINEER Alina Castaneda MD [facility]-51971 Level 4 Est. Patient 14:12:56 FIRE DEPARTMENT MARINE ENGINEER Alina Castaneda MD [facility]-77610 Level 2 Est. Patient 15:34:57 FIRE DEPARTMENT MARINE ENGINEER Alina Castaneda MD [facility]-54505 Level 3 Est. Patient 12:17:04 FIRE DEPARTMENT MARINE ENGINEER Alina Castaneda MD [id number] Level 3 Est. Patient 09:18:18 FIRE DEPARTMENT MARINE ENGINEER Marvel Charles [facility]-48736 Level 2 Est. Patient 21:50:24 CDT Alina Castaneda MD [facility]-93310 Level 3 Est. Patient 09:17:28 CDT Marvel Charles [facility]-88695 Level 4 Est. Patient 18:54:02 CDT Alina Castaneda MD [facility]-97284 Level 3 Est. Patient 10:47:10 CDT Alina Castaneda MD [facility]-22529 Level 3 Est. Patient 09:22:20 CDT Marvel Charles [facility]-58830 Level 3 Est. Patient 16:39:43 CDT Marvel Charles [facility]-41409 Level 3 Est. Patient 16:05:16 CDT Alina Castaneda MD [id number] Level 3 Est. Patient 00:29:15 CDT Alina Castaneda MD [facility]51532 Level 3 Est. Patient 10:49:22 FIRE DEPARTMENT MARINE [facility]391 Level 3 Est. Patient 21:30:19 FIRE DEPARTMENT MARINE ENGINEER Alina Castaneda MD [facility] CPT-15064 Level 4 Est. Patient 17:04:11 FIRE DEPARTMENT MARINE ENGINEER [facility] CPT-37508 Level 3 Est. Patient 15:34:11 FIRE DEPARTMENT MARINE ENGINEER [facility] CPT-91064 Level 2 Est. Patient 12:51:58 FIRE DEPARTMENT MARINE ENGINEER Alina Castaneda MD [facility] CPT-78080 Level 3 Est. Patient 13:20:01 FIRE DEPARTMENT MARINE ENGINEER Alina Castaneda MD PhD [facility] CPT-62787 Level 3 Est. Patient 09:23:35 CDT Alina Castaneda MD PhD [facility] Procedures Code Procedure Name Date Entry Date Standard Description CPT-95224 Bladder Scan 14:39:01 FIRE DEPARTMENT MARINE ENGINEER CPT-TCMM Transitional Care Mgmt-Moderate 10:30:19 FIRE DEPARTMENT MARINE ENGINEER CPT-84176 Bladder Scan 12:36:44 CDT CPT-46902 Bladder Scan 21:54:06 CDT CPT-G0008 Administration of Influenza Virus Vaccine 13:05:26 CDT CPT-61023 Fluzone Quadrivalent Intramuscular Suspension 0.5 ML 13: 05:26 CDT CPT-12296 Administration single or combination vaccine inc oral 11 :49:51 CDT CPT-36290 Pneumovax 11:49:51 CDT CPT-39210 Ribs unilateral 2V 12:37:22 FIRE DEPARTMENT MARINE ENGINEER CPT-91691 Chest 2V Frontal and Lat 17:15:26 CDT CPT-93993 Abx/Therapy Injection 18:54:02 CDT CPT-J0696 Rocephin 1000 mg (Ceftriaxone) 16:00:32 CDT CPT-24801 Chest 2V Frontal and Lat 15:26:45 CDT CPT-47899 Chest 2V Frontal and Lat 10:23:27 CDT CPT-24438 Venipuncture Draw Fee 10:11:00 CDT CPT-66694 Administration single or combination vaccine inc oral 11 :56:38 CDT CPT-25026 Influenza split virus > age 3 11:56:38 CDT CPT-29700 Venipuncture Draw Fee 08:49:54 FIRE DEPARTMENT MARINE ENGINEER CPT-05460 EKG Trac and Interp 17:54:19 FIRE DEPARTMENT MARINE ENGINEER
--- OUTSIDE RECORDS SUMMARY | 2018-07-02 14:03 | XMS REPORT | Clinical Summary ---
Author Author Admin, TERELL Organization [facility] [employer] Address Unknown Phone Unavailable Allergies, Adverse Reactions, 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 Erazo OXIDIZED FINISH PLATER Benign paroxysmal positional vertigo Vertigo, benign paroxysmal position 386.11 Inactive Mima Erazo OXIDIZED FINISH PLATER Benign paroxysmal positional vertigo High-risk sexual behavior V69.2 Active Alina Castaneda MD PhD High-risk sexual behavior Erectile dysfunction 302.72 Active Alina Castaneda MD PhD Psychosexual dysfunction with inhibited sexual excitement Constipation 564.00 Active Alina Castaneda MD PhD Constipation, unspecified Skin lesion 709.9 Active Alina Castaneda MD PhD Unspecified disorder of skin and subcutaneous tissue Malaise and fatigue 780.79 Active Cherelle Speaks OXIDIZED FINISH PLATER Other malaise and fatigue Diarrhea 787.91 Active Cherelle Speaks OXIDIZED FINISH PLATER Diarrhea PHARYNGITIS 462 Active Cherelle Speaks OXIDIZED FINISH PLATER Acute pharyngitis Colitis 558.9 Active Mima Erazo OXIDIZED FINISH PLATER Other and unspecified noninfectious gastroenteritis and colitis [...] CAPS Take one by mouth daily CHOLECALCIFEROL 70159791538 Active Mima Yokum OXIDIZED FINISH PLATER Active LATUDA 60 MG ORAL TABS Take one by mouth daily LURASIDONE HCL 12557814390 No Longer Active Mima Yokum OXIDIZED FINISH PLATER Active HUMALOG KWIKPEN 100 UNIT/ML SC SOPN sliding scale if needed INSULIN LISPRO (HUMAN) 38595109490 Active Mima Yokum OXIDIZED FINISH PLATER Active MORPHINE SULFATE 30 MG ORAL TABS by mouth twice a day MORPHINE SULFATE 40254502844 Active Mima Yokum OXIDIZED FINISH PLATER Active TRAZODONE HCL 100 MG TABS 1 every night to prevent headaches TRAZODONE HCL 35399915274 Active Gabrielle Madl LUNCH TRUCK DRIVER Active LATUDA 60 MG ORAL TABS 1 tab daily LURASIDONE HCL 76422914921 Active Gabrielle Madl LUNCH TRUCK DRIVER Active CLONAZEPAM 1 MG TABS 1 pill by mouth three times daily CLONAZEPAM 32103981203 Active Gabrielle Madl LUNCH TRUCK DRIVER Active [facility] MILK OF MAGNESIA 400 MG/5ML ORAL SUSP 30ml by mouth bid prn MAGNESIUM HYDROXIDE 69181814172 Active Mason Lroedo MD Active TYLENOL 8 HOUR 650 MG ORAL CR-TABS 1 tab QID prn ACETAMINOPHEN 20559211914 Active Mason Loredo MD Active MYLANTA GAS RELIEF MAXIMUM STR 125 MG ORAL CAPS 30cc every 4 hours prn 12/01 SIMETHICONE 68731709645 Active Mason Loredo MD Active IMODIUM A-D 2 MG ORAL TABS 1 tab QID as needed LOPERAMIDE HCL 25160003872 Active Mason Loredo MD Active FLUVOXAMINE MALEATE 50 MG ORAL TABS 1 tab by mouth daily FLUVOXAMINE MALEATE 25812119949 Active Mason Loredo MD Active TRAVATAN Z 0.004 % SOLN 1 gtt each eye daily TRAVOPROST 22592372222 No Longer Active Mason Loredo MD Active LISINOPRIL 20 MG TABS 1 BID LISINOPRIL 43568448513 No Longer Active Mason Loredo MD Active LEVEMIR FLEXTOUCH 100 UNIT/ML SC SOPN 60 units SQ each evening, for diabetes INSULIN DETEMIR 02397404144 Active Desi Nicholson Active ZOLPIDEM TARTRATE 10 MG TABS take at bedtime ZOLPIDEM TARTRATE 38927388256 No Longer Active Mason Loredo MD Active HYDROCODONE-ACETAMINOPHEN 5-325 MG TABS 2 tabs by mouth three times daily for pain HYDROCODONE-ACETAMINOPHEN 30429835658 No Longer Active Mason Loredo MD Active ZOFRAN 4 MG TABS 1 po q4hr PRN Nausea ONDANSETRON HCL 32923419250 No Longer Active Mason Loredo MD Active LOMOTIL 2.5-0.025 MG ORAL TABS take 1-2 tabs PO after each stool, no more than 8 in 24 hours DIPHENOXYLATE-ATROPINE 19719578722 No Longer Active Mason Loredo MD Active COLACE 100 MG CAPS 1 pill by mouth twice daily, for constipation DOCUSATE SODIUM 31434099300 No Longer Active Mima Yokum OXIDIZED FINISH PLATER Active FLONASE ALLERGY RELIEF 50 MCG/ACT NASAL SUSP One spray each nostril BID x 1 week then daily FLUTICASONE PROPIONATE 52693874164 Active Mima Erazo OXIDIZED FINISH PLATER Active BD PEN NEEDLE MINI U/F 31G X 5 MM MISC 4 a day INSULIN PEN NEEDLE 35645157403 Active Marvel Bertrandari MANAGER JAVA Active AMITIZA 24 MCG ORAL CAPS Take one capsule BID for constipation LUBIPROSTONE 02573877329 Active Mima Erazo OXIDIZED FINISH PLATER Active TRUEPLUS LANCETS 30G MISC 3 a day LANCETS 23471713898 Active Marvel Mackenzieglari MANAGER JAVA Active TOLTERODINE TARTRATE 2 MG TABS 1 pill twice daily, for bladder TOLTERODINE TARTRATE 47454675214 No Longer Active Vanessa Hickey MD Active AMITIZA 24 MCG ORAL CAPS Take one capsule BID for constipation. LUBIPROSTONE 58827517250 No Longer Active Vanessa Hickey MD Active FLUVOXAMINE MALEATE 100 MG ORAL TABS take one tab every AM et HS, and take 1/ 2 tab at noon FLUVOXAMINE MALEATE 46431220415 Active Grace Nasicmento RMA Active METOPROLOL SUCCINATE 100 MG [id number] 1 by mouth daily for blood pressure METOPROLOL SUCCINATE 49245920395 No Longer Active Grace Nascimento RMA Active METFORMIN HCL ER 500 MG [id number] Take three tablets by mouth everyday METFORMIN HCL 01245295045 No Longer Active Grace Nascimento RMA Active LOVAZA 1 GM CAPS 4 daily (for triglycerides) OMEGA-3- ACID ETHYL ESTERS 08392416524 No Longer Active Grace Azam RMA Active TRAZODONE HCL 100 MG ORAL TABS 1 tab by mouth for sleep TRAZODONE HCL 39040167548 No Longer Active Grace Azam RMA Active NOVOFINE 32G X 6 MM MISC use one four times per day INSULIN PEN NEEDLE 91625114268 No Longer Active Grace Azam RMA Active BACTROBAN 2 % CREAM Apply to affected area BID for up to 10 days MUPIROCIN CALCIUM 26624270204 No Longer Active Grace Nascimento RMA Active KEFLEX 500 MG CAP 1 po BID x 7 days CEPHALEXIN 60965742204 No Longer Active Cherelle Speaks OXIDIZED FINISH PLATER Active FLUVOXAMINE MALEATE 100 MG TABS Take one (1) tablet by mouth am, 1/2 at noon FLUVOXAMINE MALEATE 93835178913 No Longer Active Mima Erazo OXIDIZED FINISH PLATER Active CORICIDIN HBP CONGESTION/COUGH 10-200 MG ORAL CAPS Take as directed on box as needed for cold/flu symptoms DEXTROMETHORPHAN-GUAIFENESIN 15910837706 Active Cherelle Speaks OXIDIZED FINISH PLATER Active OMEGA-3 300 MG ORAL CAPS 4 caps by mouth daily OMEGA-3 FATTY ACIDS 87136468056 Active Mima Erazo OXIDIZED FINISH PLATER Active FLUVOXAMINE MALEATE 100 MG ORAL TABS Take 1/2 tab at noon FLUVOXAMINE MALEATE 13823868126 No Longer Active Cherelle Speaks OXIDIZED FINISH PLATER Active [facility] LUBRICANT EYE DROPS 0.4-0.3 % OPHTH SOLN POLYETHYL GLYCOL-PROPYL GLYCOL 24062172569 Active Mima Erazo OXIDIZED FINISH PLATER Active MIRALAX POWD 17g by mouth daily, for constipation POLYETHYLENE GLYCOL 3350 14389365357 Active Alina Castaneda MD PhD Active TRUETEST TEST STRP check blood sugars 3x/day GLUCOSE BLOOD 93181021466 Active Maliheh Ziglari MANAGER JAVA Active ACCU-CHEK ROSA UZMA Use device to check blood sugars BLOOD GLUCOSE MONITORING SUPPL 40561277815 No Longer Active Maliheh Ziglari MANAGER JAVA Active ACCU-CHEK ROSA INVITR STRP use strips with device to check blood sugars 3 times daily GLUCOSE BLOOD 13335882154 No Longer Active Maliheh Ziglari MANAGER JAVA Active VERAPAMIL HCL ER 180 MG ORAL CR-TABS 1 pill by mouth twice daily, for migraine prevention VERAPAMIL HCL 27937597509 Active Mima Erazo OXIDIZED FINISH PLATER Active CYCLOBENZAPRINE HCL 10 MG TABS 1 tablet by mouth three times daily, scheduled CYCLOBENZAPRINE HCL 98535037695 No Longer Active Alina Castaneda MD PhD Active HUMALOG 100 UNIT/ML SOLN Take 20 units with breakfast, 10u with lunch and suppetr. INSULIN LISPRO (HUMAN) 28097139956 No Longer Active Alina Castaneda MD PhD Active TRUETEST TEST STRP check sugars 4x/day GLUCOSE BLOOD 18801968360 No Longer Active Alina Castaneda MD PhD Active MORPHINE SULFATE 30 MG TABS 1 pill by mouth twice daily, for pain MORPHINE SULFATE 46947201380 No Longer Active Mason Loredo MD Active ACYCLOVIR 400 MG ORAL TABS 1 pill three times daily x 5 days, for cold sore outbreak ACYCLOVIR 98677700723 No Longer Active Alina Castaneda MD PhD Active PENICILLIN V POTASSIUM 500 MG TABS 1 pill by mouth three times daily PENICILLIN V POTASSIUM 54860919078 No Longer Active Alina Castaneda MD PhD Active UROXATRAL 10 MG [id number] Take 1 tablet by mouth daily ALFUZOSIN HCL 01132742876 No Longer Active Alina Castaneda MD PhD Active THIOTHIXENE 5 MG CAPS by mouth twice a day THIOTHIXENE 11512128454 No Longer Active Alina Castaneda MD PhD Active ZYPREXA 7.5 MG TABS 1 at HS OLANZAPINE 51466983371 No Longer Active Alina Castaneda MD PhD Active BD INSULIN SYRINGE 28G X 1/2" 1 ML MISC 1 four times per day INSULIN SYRINGE-NEEDLE U-100 90045461721 Active Marvel Charles MANAGER JAVA Active DETROL LA 4 MG [id number] Take 1 tablet by mouth daily TOLTERODINE TARTRATE 34700155255 No Longer Active Alina Castaneda MD PhD Active TERESE CONTOUR TEST STRP monitor blood sugars 3x/day GLUCOSE BLOOD 04738936454 No Longer Active Alina Castaneda MD PhD Active EQL TRUETEST TEST STRP Test blood sugar TID GLUCOSE BLOOD 10646620352 No Longer Active Alina Castaneda MD PhD Active FLUTICASONE PROPIONATE 50 MCG/ACT SUSP 2 sprays each nostril qDay x 30 days FLUTICASONE PROPIONATE 73944269590 No Longer Active Alina Castaneda MD PhD Active IBUPROFEN 200 MG TABS 1 Q 6 hr. PRN IBUPROFEN 48456127459 No Longer Active Alina Castaneda MD PhD Active NIACIN ER 500 MG CR-TABS 4 qHS (for triglycerides) NIACIN 50712351435 No Longer Active Alina Castaneda MD PhD Active ALFUZOSIN HCL ER 10 MG [id number] 1 tablet daily ALFUZOSIN HCL 31163812342 Active Mimacecily Erazo OXIDIZED FINISH PLATER Active SAPHRIS 5 MG SUBL by mouth twice a day ASENAPINE MALEATE 89236745078 No Longer Active Maliheh Ziglari MANAGER JAVA Active ACETAMINOPHEN 500 MG TABS 2 Q 6 hr. PRN ACETAMINOPHEN 82204436033 No Longer Active Maliheh Ziglari MANAGER JAVA Active ORPHENADRINE CITRATE ER 100 MG [id number] 1 every 12 hr. as needed ORPHENADRINE CITRATE 20225504620 No Longer Active Alina Castaneda MD PhD Active NIACIN CR 500 MG CR-TABS 2 qHS NIACIN 16475904430 No Longer Active Alina Castaneda MD PhD Active AMOXICILLIN 500 MG CAPS 2 po BID x 10 days AMOXICILLIN 59929007513 No Longer Active Alina Castaneda MD PhD Active HYDROCODONE-ACETAMINOPHEN 7.5-325 MG TABS 1 four times a day as needed for pain HYDROCODONE-ACETAMINOPHEN 30962649590 No Longer Active Alina Castaneda MD PhD Active DOXEPIN HCL 10 MG CAPS Take 1 tablet by mouth daily DOXEPIN HCL 31485600552 No Longer Active Salina Han [facility] Active NAVANE 10 MG CAPS 1/2 tablet twice a day THIOTHIXENE No Longer Active Salina Han A Active CYCLOBENZAPRINE HCL 10 MG TABS 1/2 tablet by mouth every 8 hours as needed for muscle spasms CYCLOBENZAPRINE HCL 51034174654 No Longer Active Alina Castaneda MD PhD Active BACTROBAN 2 % CREAM apply to ear and nose twice daily MUPIROCIN CALCIUM 06315059928 No Longer Active Alina Castaneda MD PhD Active HYDROCODONE-ACETAMINOPHEN 5-325 MG TABS take one tablet by mouth every four hours as needed for pain HYDROCODONE-ACETAMINOPHEN 06955640799 No Longer Active Alina Castaneda MD PhD Active ZYPREXA 5 MG TABS take one tablet by mouth every evening OLANZAPINE 68036581634 No Longer Active Alina Castaneda MD PhD Active ALBUTEROL SULFATE 0.083 % NEBU SOLN one vial per nebulizer TID and PRN cough/ soa ALBUTEROL SULFATE 17953190735 No Longer Active Alina Castaneda MD PhD Active GUAIFENESIN 600 MG [id number] 1 tablet by mouth twice daily if needed for cough GUAIFENESIN 12465142264 No Longer Active Marvel Charles [facility] Active AZITHROMYCIN 500 MG SOLR 1 po q day AZITHROMYCIN 58901999485 No Longer Active Alina Castaneda MD PhD Active PROMETHAZINE-CODEINE 6.25-10 MG/5ML SYRP 1 tsp po q 6 hours prn cough PROMETHAZINE-CODEINE 72829957443 No Longer Active Alina Castaneda MD PhD Active CEFDINIR 300 MG CAPS by mouth twice a day CEFDINIR 34314573604 No Longer Active Alina Castaneda MD PhD Active METFORMIN HCL 500 MG [id number] Take 3 tablets by mouth everyday METFORMIN HCL 09414696857 No Longer Active Alina Castaneda MD PhD Active LEVEMIR 100 UNIT/ML SOLN 90 units SQ qHS INSULIN DETEMIR 83116142861 No Longer Active Marvel MARROQUIN Active TOPROL XL 100 MG [id number] 1 @ HS METOPROLOL SUCCINATE 47922252354 No Longer Active Marvel MARROQUIN Active ALLOPURINOL 300 MG TABS Take one by mouth daily ALLOPURINOL 91911318775 Active Mima Yoeloinaum OXIDIZED FINISH PLATER Active ZYPREXA 10 MG TABS Take one by mouth daily OLANZAPINE 06278241752 No Longer Active Alina Castaneda MD PhD Active NOVOLOG 100 UNIT/ML SOLN 40 units with every meal INSULIN ASPART 14362549245 No Longer Active Alina Castaneda MD PhD Active VERAPAMIL HCL CR 120 MG TAB CR 1 qPM VERAPAMIL HCL 10494467375 No Longer Active Salina ROJAS Active ZYPREXA 15 MG TABS Take 1 tablet by mouth daily OLANZAPINE 04121742696 No Longer Active aMrvel MARROQUIN Active ALBUTEROL SULFATE (2.5 MG/3ML) 0.083% NEBU 1 neb tid and prn cough ALBUTEROL SULFATE 43003295953 No Longer Active Alina Castaneda MD PhD Active LANTUS 100 UNIT/ML SOLN 60 units sq q hs INSULIN GLARGINE 89954005871 No Longer Active CRYSTAL Suarez Active ALBUTEROL SULFATE (2.5 MG/3ML) 0.083% NEBU 1 neb tid and prn cough ALBUTEROL SULFATE (2.5 MG/3ML) 0.083% NEBU 796787 ALBUTEROL SULFATE Inactive ZYPREXA 15 MG TABS Take 1 tablet by mouth daily ZYPREXA 15 MG TABS 346536 OLANZAPINE Inactive VERAPAMIL HCL CR 120 MG TAB CR 1 qPM VERAPAMIL HCL CR 120 MG TAB CR VERAPAMIL HCL Inactive ZYPREXA 10 MG TABS Take one by mouth daily ZYPREXA 10 MG TABS 450232 OLANZAPINE Inactive TOPROL XL 100 MG [id number] 1 @ HS TOPROL XL 100 MG [id number] METOPROLOL SUCCINATE Inactive LEVEMIR 100 UNIT/ML SOLN 90 units SQ qHS LEVEMIR 100 UNIT/ML SOLN INSULIN DETEMIR Inactive PROMETHAZINE-CODEINE 6.25-10 MG/5ML SYRP 1 tsp po q 6 hours prn cough PROMETHAZINE-CODEINE 6.25-10 MG/5ML SYRP 541404 PROMETHAZINE- CODEINE Inactive GUAIFENESIN 600 MG [id number] 1 tablet by mouth twice daily if needed for cough GUAIFENESIN 600 MG [id number]-HFQ GUAIFENESIN Inactive ALBUTEROL SULFATE 0.083 % NEBU SOLN one vial per nebulizer TID and PRN cough/ soa ALBUTEROL SULFATE 0.083 % NEBU SOLN 423709 ALBUTEROL SULFATE Inactive ZYPREXA 5 MG TABS take one tablet by mouth every evening ZYPREXA 5 MG TABS 178656 OLANZAPINE Inactive HYDROCODONE-ACETAMINOPHEN 5-325 MG TABS take one tablet by mouth every four hours as needed for pain HYDROCODONE-ACETAMINOPHEN 5-325 MG TABS 934889 HYDROCODONE-ACETAMINOPHEN Inactive BACTROBAN 2 % CREAM apply to ear and nose twice daily BACTROBAN 2 % CREAM 654737 MUPIROCIN CALCIUM Inactive CYCLOBENZAPRINE HCL 10 MG TABS 1/2 tablet by mouth every 8 hours as needed for muscle spasms CYCLOBENZAPRINE HCL 10 MG TABS 098643 CYCLOBENZAPRINE HCL Inactive NAVANE 10 MG CAPS 1/2 tablet twice a day NAVANE 10 MG CAPS THIOTHIXENE Inactive DOXEPIN HCL 10 MG CAPS Take 1 tablet by mouth daily DOXEPIN HCL 10 MG CAPS 4368368 DOXEPIN HCL Inactive HYDROCODONE-ACETAMINOPHEN 7.5-325 MG TABS 1 four times a day as needed for pain HYDROCODONE-ACETAMINOPHEN 7.5-325 MG TABS 274661 HYDROCODONE-ACETAMINOPHEN Inactive NIACIN CR 500 MG CR-TABS 2 qHS NIACIN CR 500 MG CR- TABS NIACIN Inactive ORPHENADRINE CITRATE ER 100 MG [id number] 1 every 12 hr. as needed ORPHENADRINE CITRATE ER 100 MG [id number] ORPHENADRINE CITRATE Inactive ACETAMINOPHEN 500 MG TABS 2 Q 6 hr. PRN ACETAMINOPHEN 500 MG TABS 080893 ACETAMINOPHEN Inactive SAPHRIS 5 MG SUBL by mouth twice a day SAPHRIS 5 MG SUBL ASENAPINE MALEATE Inactive NIACIN ER 500 MG CR-TABS 4 qHS (for triglycerides) NIACIN ER 500 MG CR-TABS NIACIN Inactive IBUPROFEN 200 MG TABS 1 Q 6 hr. PRN IBUPROFEN 200 MG TABS 603938 IBUPROFEN Inactive FLUTICASONE PROPIONATE 50 MCG/ACT SUSP 2 sprays each nostril qDay x 30 days FLUTICASONE PROPIONATE 50 MCG/ACT SUSP 9213024 FLUTICASONE PROPIONATE Inactive EQL TRUETEST TEST STRP Test blood sugar TID EQL TRUETEST TEST STRP GLUCOSE BLOOD Inactive TERESE CONTOUR TEST STRP monitor blood sugars 3x/day TERESE CONTOUR TEST STRP GLUCOSE BLOOD Inactive DETROL LA 4 MG [id number] Take 1 tablet by mouth daily DETROL LA 4 MG [id number] TOLTERODINE TARTRATE Inactive ZYPREXA 7.5 MG TABS 1 at HS ZYPREXA 7.5 MG TABS 205562 OLANZAPINE Inactive THIOTHIXENE 5 MG CAPS by mouth twice a day THIOTHIXENE 5 MG CAPS 689934 THIOTHIXENE Inactive UROXATRAL 10 MG [id number] Take 1 tablet by mouth daily UROXATRAL 10 MG [id number] ALFUZOSIN HCL Inactive ACYCLOVIR 400 MG ORAL TABS 1 pill three times daily x 5 days, for cold sore outbreak ACYCLOVIR 400 MG ORAL TABS 135969 ACYCLOVIR Inactive TRUETEST TEST STRP check sugars 4x/day TRUETEST TEST STRP GLUCOSE BLOOD Inactive HUMALOG 100 UNIT/ML SOLN Take 20 units with breakfast, 10u with lunch and suppetr. HUMALOG 100 UNIT/ML SOLN INSULIN LISPRO ( HUMAN) Inactive CYCLOBENZAPRINE HCL 10 MG TABS 1 tablet by mouth three times daily, scheduled CYCLOBENZAPRINE HCL 10 MG TABS 524630 CYCLOBENZAPRINE HCL Inactive ACCU-CHEK ROSA INVITR STRP use strips with device to check blood sugars 3 times daily ACCU-CHEK ROSA INVITR STRP GLUCOSE BLOOD Inactive ACCU-CHEK ROSA UZMA Use device to check blood sugars ACCU-CHEK ROSA UZMA BLOOD GLUCOSE MONITORING SUPPL Inactive FLUVOXAMINE MALEATE 100 MG ORAL TABS Take 1/2 tab at noon FLUVOXAMINE MALEATE 100 MG ORAL TABS 713225 FLUVOXAMINE MALEATE Inactive FLUVOXAMINE MALEATE 100 MG TABS Take one (1) tablet by mouth am, 1/2 at noon FLUVOXAMINE MALEATE 100 MG TABS 516250 FLUVOXAMINE MALEATE Inactive BACTROBAN 2 % CREAM Apply to affected area BID for up to 10 days BACTROBAN 2 % CREAM 490242 MUPIROCIN CALCIUM Inactive NOVOFINE 32G X 6 MM MISC use one four times per day NOVOFINE 32G X 6 MM MISC INSULIN PEN NEEDLE Inactive TRAZODONE HCL 100 MG ORAL TABS 1 tab by mouth for sleep TRAZODONE HCL 100 MG ORAL TABS 865364 TRAZODONE HCL Inactive LOVAZA 1 GM CAPS 4 daily (for triglycerides) LOVAZA 1 GM CAPS 508504 [id number]-[id number] ETHYL ESTERS Inactive METFORMIN HCL ER 500 MG [id number] Take three tablets by mouth everyday METFORMIN HCL ER 500 MG VR62R-BZI METFORMIN HCL Inactive METOPROLOL SUCCINATE 100 MG BC81T-FXO 1 by mouth daily for blood pressure METOPROLOL SUCCINATE 100 MG WI52H-OLK METOPROLOL SUCCINATE Inactive AMITIZA 24 MCG ORAL CAPS Take one capsule BID for constipation. AMITIZA 24 MCG ORAL CAPS LUBIPROSTONE Inactive TOLTERODINE TARTRATE 2 MG TABS 1 pill twice daily, for bladder TOLTERODINE TARTRATE 2 MG TABS 742568 TOLTERODINE TARTRATE Inactive COLACE 100 MG CAPS 1 pill by mouth twice daily, for constipation COLACE 100 MG CAPS 4719450 DOCUSATE SODIUM Inactive LOMOTIL 2.5-0.025 MG ORAL TABS take 1-2 tabs PO after each stool, no more than 8 in 24 hours LOMOTIL 2.5-0.025 MG ORAL TABS 1795272 DIPHENOXYLATE-ATROPINE Inactive ZOFRAN 4 MG TABS 1 po q4hr PRN Nausea ZOFRAN 4 MG TABS 906921 ONDANSETRON HCL Inactive HYDROCODONE-ACETAMINOPHEN 5-325 MG TABS 2 tabs by mouth three times daily for pain HYDROCODONE-ACETAMINOPHEN 5-325 MG TABS 559406 HYDROCODONE-ACETAMINOPHEN Inactive ZOLPIDEM TARTRATE 10 MG TABS take at bedtime ZOLPIDEM TARTRATE 10 MG TABS 032532 ZOLPIDEM TARTRATE Inactive LISINOPRIL 20 MG TABS 1 BID LISINOPRIL 20 MG TABS 526384 LISINOPRIL Inactive TRAVATAN Z 0.004 % SOLN 1 gtt each eye daily TRAVATAN Z 0.004 % SOLN TRAVOPROST Inactive LATUDA 60 MG ORAL TABS Take one by mouth daily LATUDA 60 MG ORAL TABS LURASIDONE HCL Inactive CEFDINIR 300 MG CAPS by mouth twice a day CEFDINIR 300 MG CAPS 830678 CEFDINIR Inactive AZITHROMYCIN 500 MG SOLR 1 po q day AZITHROMYCIN 500 MG SOLR 48723748431 AZITHROMYCIN Inactive AMOXICILLIN 500 MG CAPS 2 po BID x 10 days AMOXICILLIN 500 MG CAPS 937693 AMOXICILLIN Inactive PENICILLIN V POTASSIUM 500 MG TABS 1 pill by mouth three times daily PENICILLIN V POTASSIUM 500 MG TABS 031040 PENICILLIN V POTASSIUM Inactive KEFLEX 500 MG CAP 1 po BID x 7 days KEFLEX 500 MG CAP 031248 CEPHALEXIN Inactive Immunizations Vaccine Administration Date Value [...] Fluvirin, Fluarix, Agriflu(>=18 yo)) Fluzone (>3 yrs.) [[id number]] Influenza, seasonal, injectable pneumococcal immunization administered Pneumovax [...] pressure, diastolic - 8462-4 74 mm[Hg] BP gacria blood pressure, systolic - 8480-6 129 mm[Hg] [...] Panel - Chemistry sodium, serum 137 mmol/L 316-087 7468/10/12 potassium, serum 4.8 mmol/L 3.5-5.2 chloride, serum 102 mmol/L 98-107 carbon dioxide, venous blood 27.6 mmol/L 21.0-32.0 blood glucose 168 mg/dL 65-110 calcium, serum 9.0 mg/dL 8.5-10.1 urea nitrogen, blood 15 mg/dL 7-18 creatinine, serum 1.04 mg/dL 0.55-1.30 sodium, serum 138 mmol/L 045-393 5678/11/11 potassium, serum 4.7 mmol/L 3.5-5.2 chloride, serum 103 mmol/L 98-107 carbon dioxide, venous blood 23.3 mmol/L 21.0-32.0 blood glucose 170 mg/dL 65-110 calcium, serum 8.6 mg/dL 8.5-10.1 urea nitrogen, blood 17 mg/dL 7-18 creatinine, serum 1.51 mg/dL 0.55-1.30 Lab Report: CBC W/DIFF, Basic Metabolic Panel - Hematology hemoglobin, blood 13.7 g/dL 13.5-17.5 hematocrit, blood 40.2 % 41.0-53.0 mean corpuscular volume, RBC 89 fL 80-97 mean corpuscular hemoglobin, RBC 30.1 pg 27.0-31.2 mean corpuscular hemoglobin concentration, RBC 34.0 G/DL % 31.8- 35.4 red blood cell distribution width 15.6 % 11.6-14.8 platelet count 240 10^3/MM^3 10*3/mm3 185-755 6617/11/11 leukocyte count, blood 9.6 10^3/MM^3 10*3/mm3 4.6-10.2 neutrophils as percent of blood leukocytes 75.0 % 42.2-75.2 monocytes as percent of blood leukocytes 6.5 % 1.7-9.3 lymphocytes as percent of blood leukocytes 12.7 % 20.5-51.1 erythrocyte (RBC) count 4.33 10^6/MM^3 10*6/mm3 4.69-6.13 hemoglobin, blood 13.5 g/dL 13.5-17.5 erythrocyte (RBC) count 4.54 10^6/MM^3 10*6/mm3 4.69-6.13 lymphocytes as percent of blood leukocytes 26.9 % 20.5-51.1 monocytes as percent of blood leukocytes 8.3 % 1.7-9.3 neutrophils as percent of blood leukocytes 59.5 % 42.2-75.2 leukocyte count, blood 5.8 10^3/MM^3 10*3/mm3 4.6-10.2 hematocrit, blood 39.5 % [...] Acid - Chemistry cholesterol, serum 187 mg/dL 900-124 3276/06/14 triglyceride, serum, fasting 246 mg/dL 30-200 HDL [...] - Urinalysis glucose, urine, semiquantitative Negative Negative ketones, urine, by test strip Trace Negative bilirubin, urine Negative Negative urine color Yellow Colorless;Lightyellow;Straw;Yellow appearance, urine Clear Clear specific gravity, urine 1.020 1.000-1.030 pH, urine, semiquantitative 5.5 5.0-8.5 urobilinogen, urine, semiquantitative (dipstick) 1.0 Normal leukocyte esterase, urine, by dipstick Negative Negative nitrite, urine, semiquantitative Negative Negative Office Visit: 1 month follow [...] negative Encounters Code Encounter Date Provider Facility CPT-21709 Level 3 Est. Patient 17:40:16 CDT Mima Erazo [facility] CPT-38429 Level 3 Est. Patient 14:34:52 CDT Vanessa Hickey MD [facility] CPT-23646 Level 3 Est. Patient 16:27:51 CDT Mima Erazo [facility] CPT-73449 Level 3 Est. Patient 14:39:00 LOCOMOTIVE MECHANIC Vanessa Hickey MD [facility] CPT-47790 Level 2 Est. Patient 18:43:34 CDT Mima Erazo [facility] CPT-48211 Level 3 Est. Patient 16:22:09 CDT Cherelle Avila [facility] CPT-31004 Level 4 Est. Patient 17:55:14 CDT Mima Erazo [facility] CPT-80682 Level 2 Est. Patient 17:13:21 CDT Alina Castaneda MD [facility]-91701 Level 3 Est. Patient 14:46:15 CDT Vanessa Hickey MD [facility]-11440 Level 3 Est. Patient 09:34:56 CDT Alina Castaneda MD [facility]64431 Level 3 Est. Patient 21:40:19 CDT Mima Erazo [facility]-86399 Level 3 Est. Patient 09:26:40 CDT Marvel Charles [facility]-13867 Level 3 Est. Patient 12:36:43 CDT Vanessa Hickey MD [facility]66880 Level 3 Est. Patient 12:57:49 CDT Vanessa Hickey MD [facility]89092 Level 3 Est. Patient 00:28:25 CDT Alina Castaneda MD [facility]84376 Level 2 Est. Patient 12:52:14 CDT Alina Castaneda MD [facility]09170 Level 3 Est. Patient 11:51:18 LOCOMOTIVE MECHANIC Alina Castaneda MD [facility]-72501 Level 3 Est. Patient 10:09:22 LOCOMOTIVE MECHANIC Alina Castaneda MD [facility]91094 Level 3 Est. Patient 14:36:26 LOCOMOTIVE MECHANIC Marvel Charles [facility]53689 Level 3 Est. Patient 13:34:47 LOCOMOTIVE MECHANIC Alina Castaneda MD [facility]58419 Level 3 Est. Patient 19:52:08 LOCOMOTIVE MECHANIC Alina Castaneda MD [facility]05266 Level 3 Est. Patient 10:01:51 LOCOMOTIVE MECHANIC Marvel Charles [facility]-93362 Level 3 Est. Patient 21:54:06 CDT Vanessa Hickey MD [facility]-73805 Level 3 Est. Patient 08:54:46 CDT Alina Castaneda MD [facility]48786 Level 3 Est. Patient 09:32:11 CDT Marvel Araceli [facility]-44811 Level 3 Est. Patient 12:02:49 CDT Alina Castaneda MD [facility]52244 Level 3 Est. Patient 19:17:33 CDT Alina Castaneda MD [facility]48529 Level 3 Est. Patient 13:19:10 CDT [facility]-42605 Level 3 Est. Patient 08:20:05 CDT Alina Castaneda MD [facility]16480 Level 3 Est. Patient 15:17:18 CDT Alina Castaneda MD [facility]18279 Level 3 Est. Patient 14:25:36 LOCOMOTIVE MECHANIC [facility] Level 3 Est. Patient 10:09:15 LOCOMOTIVE MECHANIC [facility]19838 Level 3 Est. Patient 21:28:43 CDT Alina Castaneda MD [facility]20474 Level 3 Est. Patient 15:20:11 CDT Marvel Charles [facility]-09687 Level 4 Est. Patient 19:08:12 CDT Alina Castaneda MD [facility]85388 Level 3 Est. Patient 15:06:39 CDT [facility] Araceli [facility]-29580 Level 4 Est. Patient 17:48:15 CDT Alina Castaneda MD [facility]-37503 Level 3 Est. Patient 14:53:49 CDT Alina Castaneda MD [facility]-67703 Level 3 Est. Patient 09:35:16 CDT Alina Castaneda MD [facility]-93943 Level 3 Est. Patient 12:23:22 CDT Alina Castaneda MD [facility]-25527 Level 3 Est. Patient 16:19:15 CDT Alina Castaenda MD [facility]-77803 Level 3 Est. Patient 21:39:56 LOCOMOTIVE MECHANIC Alina Castaneda MD [facility]-68314 Level 4 Est. Patient 14:12:56 LOCOMOTIVE MECHANIC Alina Castaneda MD [facility]-58280 Level 2 Est. Patient 15:34:57 LOCOMOTIVE MECHANIC Alina Castaneda MD [facility]-09762 Level 3 Est. Patient 12:17:04 LOCOMOTIVE MECHANIC Alina Castaneda MD [facility]-10728 Level 3 Est. Patient 09:18:18 LOCOMOTIVE MECHANIC Marvel Charles [facility]-01772 Level 2 Est. Patient 21:50:24 CDT Alina Castaneda MD [facility]-83923 Level 3 Est. Patient 09:17:28 CDT Marvel Charles [facility]-39884 Level 4 Est. Patient 18:54:02 CDT Alina Castaneda MD [facility]08245 Level 3 Est. Patient 10:47:10 CDT Alina Castaneda MD [facility]-72634 Level 3 Est. Patient 09:22:20 CDT Marvel Charles [facility] CPT-46903 Level 3 Est. Patient 16:39:43 CDT Brook[place] Charles [facility] CPT-00448 Level 3 Est. Patient 16:05:16 CDT Alina Castaneda MD [facility] CPT-21185 Level 3 Est. Patient 00:29:15 CDT Alina Castandea MD [facility] CPT-32759 Level 3 Est. Patient 10:49:22 LOCOMOTIVE MECHANIC Marvel Charles [facility] CPT-02875 Level 3 Est. Patient 21:30:19 LOCOMOTIVE MECHANIC Alina Castaneda MD [facility] CPT-91618 Level 4 Est. Patient 17:04:11 LOCOMOTIVE MECHANIC Brooksnivia Charles [facility] CPT-44418 Level 3 Est. Patient 15:34:11 LOCOMOTIVE MECHANIC [facility] C[facility]-45061 Level 2 Est. Patient 12:51:58 LOCOMOTIVE MECHANIC Alina Castaneda MD [facility] CPT-49134 Level 3 Est. Patient 13:20:01 LOCOMOTIVE MECHANIC Alina Castaneda MD [facility] CPT-41451 Level 3 Est. Patient 09:23:35 CDT Alina Castaneda MD [facility] Procedures Code Procedure Name Date Entry Date Standard Description CPT-TCMM Transitional Care Mgmt-Moderate 10:25:31 CDT CPT-15355 Bladder Scan 14:34:53 CDT CPT-30778 Bladder Scan 14:39:01 LOCOMOTIVE MECHANIC CPT-TCMM Transitional Care Mgmt-Moderate 10:30:19 LOCOMOTIVE MECHANIC CPT-52301 Bladder Scan 12:36:44 CDT CPT-04631 Bladder Scan 21:54:06 CDT CPT-G0008 Administration of Influenza Virus Vaccine 13:05:26 CDT CPT-27048 Fluzone Quadrivalent Intramuscular Suspension 0.5 ML 13: 05:26 CDT CPT-40965 Administration single or combination vaccine inc oral 11 :49:51 CDT CPT-63425 Pneumovax 11:49:51 CDT CPT-04163 Ribs unilateral 2V 12:37:22 LOCOMOTIVE MECHANIC CPT-84512 Chest 2V Frontal and Lat 17:15:26 CDT CPT-68825 Abx/Therapy Injection 18:54:02 CDT CPT-J0696 Rocephin 1000 mg (Ceftriaxone) 16:00:32 CDT CPT-38968 Chest 2V Frontal and Lat 15:26:45 CDT CPT-08886 Chest 2V Frontal and Lat 10:23:27 CDT CPT-66569 Venipuncture Draw Fee 10:11:00 CDT CPT-05293 Administration single or combination vaccine inc oral 11 :56:38 CDT CPT-33284 Influenza split virus > age 3 11:56:38 CDT CPT-99989 Venipuncture Draw Fee 08:49:54 LOCOMOTIVE MECHANIC CPT-19613 EKG Trac and Interp 17:54:19 LOCOMOTIVE MECHANIC
--- OUTSIDE RECORDS SUMMARY | 2018-07-02 14:05 | XMS REPORT | Clinical Summary ---
Author Author Admin, TERELL Organization [facility] Address Unknown Phone Unavailable Allergies, Adverse 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 Kacey SPIN[employer]AME Benign paroxysmal positional vertigo Vertigo, benign paroxysmal position 386.11 Inactive Mima Kacey [employer]IN[employer] Benign paroxysmal positional vertigo High-risk sexual behavior [...] and floor of mouth, uncomplicated ICD-873.64 Roro Csataneda MD PhD Chest pain, atypical ICD-786.59 Roro Castaneda MD PhD Chest pain, atypical ICD-786.59 Roro Castaneda MD PhD Medication List Medication Instructions Start Date Stop Date Generic Name NDC Status Provider Patient Instruction HUMALOG 100 UNIT/ML SC SOLN 20u am , 10u lunch and supper INSULIN LISPRO (HUMAN) 50422837388 Active Marvel Araceli MARROQUIN Active LATUDA 120 MG ORAL TABS 1 pill by mouth nightly LURASIDONE HCL 06555834360 Active Alina Castaneda MD PhD Active COLACE 100 MG CAPS 1 pill by mouth twice daily, for constipation DOCUSATE SODIUM 68160494970 Active Alina Castaneda MD PhD Active TRUETEST TEST STRP check blood sugars 3x/day GLUCOSE BLOOD 23321274126 Active Malnivia 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 RESIDENTIAL INSTALLER Active ACCU-CHEK ROSA UZMA Use device to check blood sugars BLOOD GLUCOSE MONITORING SUPPL 90085594873 No Longer Active Marvel 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 RESIDENTIAL INSTALLER Active ACCU-CHEK ROSA INVITR STRP use strips with device to check blood sugars 3 times daily GLUCOSE BLOOD 17623952019 No Longer Active Brooksnivia Araceli MENDOZAP Active VERAPAMIL HCL ER 180 MG ORAL CR-TABS 1 pill by mouth twice daily, for migraine prevention VERAPAMIL HCL 02104246257 Active Alina Castaneda MD PhD Active CYCLOBENZAPRINE HCL 10 MG TABS 1 tablet by mouth three times daily, scheduled CYCLOBENZAPRINE HCL 68393315417 No Longer Active Alina Castaneda MD PhD Active HUMALOG 100 UNIT/ML SOLN Take 20 units with breakfast, 10u with lunch and suppetr. INSULIN LISPRO (HUMAN) 61930310082 No Longer Active Alina Castaneda MD PhD Active TRUETEST TEST STRP check sugars 4x/day GLUCOSE BLOOD 38088766283 No Longer Active Alina Castaneda MD PhD Active MORPHINE SULFATE 30 MG TABS 1 pill by mouth twice daily, for pain MORPHINE SULFATE 41317095037 Active Alina Castaneda MD PhD Active ACYCLOVIR 400 MG ORAL TABS 1 pill three times daily x 5 days, for cold sore outbreak ACYCLOVIR 85707493678 No Longer Active Alina Castaneda MD PhD Active PENICILLIN V POTASSIUM 500 MG TABS 1 pill by mouth three times daily PENICILLIN V POTASSIUM 14410134117 No Longer Active Alina Castaneda MD PhD Active UROXATRAL 10 MG [id number] Take 1 tablet by mouth daily ALFUZOSIN HCL 58444053710 No Longer Active Alina Castaneda MD PhD Active THIOTHIXENE 5 MG CAPS by mouth twice a day THIOTHIXENE 20038708432 No Longer Active Alina Castaneda MD PhD Active ZYPREXA 7.5 MG TABS 1 at HS OLANZAPINE 21274967910 No Longer Active Alina Castaneda MD PhD Active LEVEMIR 100 UNIT/ML SOLN Take 70 u at 7-8pm INSULIN DETEMIR 11040154960 Active Maliheh Ziglari RESIDENTIAL INSTALLER Active BD INSULIN SYRINGE 28G X 1/2" 1 ML MISC 1 four times per day INSULIN SYRINGE-NEEDLE U-100 48692874175 Active Mallashondaeh Ziglari RESIDENTIAL INSTALLER Active TOLTERODINE TARTRATE 2 MG TABS 1 pill twice daily, for bladder TOLTERODINE TARTRATE 84737533092 Active Alina Castaneda MD PhD Active DETROL LA 4 MG TR72Z-TUI Take 1 tablet by mouth daily TOLTERODINE TARTRATE 57289894345 No Longer Active Alina Castaneda MD PhD Active HYDROCODONE-ACETAMINOPHEN 5-325 MG TABS 2 tabs by mouth three times daily as needed for pain HYDROCODONE-ACETAMINOPHEN 25663157361 Active Alina Castaneda MD PhD Active TERESE CONTOUR TEST STRP monitor blood sugars 3x/day GLUCOSE BLOOD 28285132934 No Longer Active Alina Castaneda MD PhD Active EQL TRUETEST TEST STRP Test blood sugar TID GLUCOSE BLOOD 74571520834 No Longer Active Alina Castaneda MD PhD Active FLUTICASONE PROPIONATE 50 MCG/ACT SUSP 2 sprays each nostril qDay x 30 days FLUTICASONE PROPIONATE 81434764231 No Longer Active Alina Castaneda MD PhD Active IBUPROFEN 200 MG TABS 1 Q 6 hr. PRN IBUPROFEN 16544440853 No Longer Active Alina Castaneda MD PhD Active NIACIN ER 500 MG CR-TABS 4 qHS (for triglycerides) NIACIN 16465573392 No Longer Active Alina Castaneda MD PhD Active ALFUZOSIN HCL ER 10 MG [id number]-WKN 1 tablet daily ALFUZOSIN HCL 70172483849 Active Vanessa Hickey MD Active CLONAZEPAM 1 MG TABS 1 pill by mouth three times daily CLONAZEPAM 59282622340 Active Alina Castaneda MD PhD Active LOVAZA 1 GM CAPS 4 daily (for triglycerides) IIAEO-2-GIJU ETHYL ESTERS 17755136152 Active Alina Castaneda MD PhD Active SAPHRIS 5 MG SUBL by mouth twice a day ASENAPINE MALEATE 16753848844 No Longer Active Marvel MARROQUIN Active ACETAMINOPHEN 500 MG TABS 2 Q 6 hr. PRN ACETAMINOPHEN 12596153454 No Longer Active Marvel MARROQUIN Active ORPHENADRINE CITRATE ER 100 MG [id number] 1 every 12 hr. as needed ORPHENADRINE CITRATE 99563360759 No Longer Active Alina Castaneda MD PhD Active NIACIN CR 500 MG CR-TABS 2 qHS NIACIN 20182067948 No Longer Active Alina Castaneda MD PhD Active AMOXICILLIN 500 MG CAPS 2 po BID x 10 days AMOXICILLIN 19865782127 No Longer Active Alina Castaneda MD PhD Active HYDROCODONE-ACETAMINOPHEN 7.5-325 MG TABS 1 four times a day as needed for pain HYDROCODONE-ACETAMINOPHEN 31252947529 No Longer Active Alina Castaneda MD PhD Active METFORMIN HCL ER 500 MG ML84L-MEQ Take three tablets by mouth everyday METFORMIN HCL 93152956277 Active Marvel Mackenzieglestela RESIDENTIAL INSTALLER Active DOXEPIN HCL 10 MG CAPS Take 1 tablet by mouth daily DOXEPIN HCL 36016703292 No Longer Active Salina Han [facility] Active NAVANE 10 MG CAPS 1/2 tablet twice a day THIOTHIXENE No Longer Active Salina Han A Active CYCLOBENZAPRINE HCL 10 MG TABS 1/2 tablet by mouth every 8 hours as needed for muscle spasms CYCLOBENZAPRINE HCL 89693238347 No Longer Active Alina Castaneda MD PhD Active BACTROBAN 2 % CREAM apply to ear and nose twice daily MUPIROCIN CALCIUM 03776944908 No Longer Active Alina Castaneda MD PhD Active HYDROCODONE-ACETAMINOPHEN 5-325 MG TABS take one tablet by mouth every four hours as needed for pain HYDROCODONE-ACETAMINOPHEN 11252790434 No Longer Active Alina Castaneda MD PhD Active ZOLPIDEM TARTRATE 10 MG TABS take at bedtime ZOLPIDEM TARTRATE 26490124022 Active Alina Castaneda MD PhD Active ZYPREXA 5 MG TABS take one tablet by mouth every evening OLANZAPINE 74040211901 No Longer Active Alina Castaneda MD PhD Active ALBUTEROL SULFATE 0.083 % NEBU SOLN one vial per nebulizer TID and PRN cough/ soa ALBUTEROL SULFATE 60986193883 No Longer Active Alina Castaneda MD PhD Active GUAIFENESIN 600 MG CZ01U-FST 1 tablet by mouth twice daily if needed for cough GUAIFENESIN 71202137112 No Longer Active Marvel Charles [facility] Active AZITHROMYCIN 500 MG SOLR 1 po q day AZITHROMYCIN 46977375159 No Longer Active Alina Castaneda MD PhD Active METOPROLOL SUCCINATE 100 MG FD36H-RQQ 1 by mouth daily for blood pressure METOPROLOL SUCCINATE 48745553128 Active Alina Castaneda MD PhD Active PROMETHAZINE-CODEINE 6.25-10 MG/5ML SYRP 1 tsp po q 6 hours prn cough PROMETHAZINE-CODEINE 50986266319 No Longer Active Alina Castaneda MD PhD Active CEFDINIR 300 MG CAPS by mouth twice a day CEFDINIR 49775122064 No Longer Active Alina Castaneda MD PhD Active METFORMIN HCL 500 MG LA92Y-UCU Take 3 tablets by mouth everyday METFORMIN HCL 10293793249 No Longer Active Alina Castaneda MD PhD Active LEVEMIR 100 UNIT/ML SOLN 90 units SQ qHS INSULIN DETEMIR 40519340109 No Longer Active Marvel MARROQUIN Active TOPROL XL 100 MG BK22O-PHV 1 @ HS METOPROLOL SUCCINATE 46697424675 No Longer Active Marvel MARROQUIN Active ALLOPURINOL 300 MG TABS Take one by mouth daily ALLOPURINOL 90040310093 Active Alina Castaneda MD PhD Active ZYPREXA 10 MG TABS Take one by mouth daily OLANZAPINE 41234031274 No Longer Active Alina Castaneda MD PhD Active NOVOLOG 100 UNIT/ML SOLN 40 units with every meal INSULIN ASPART 09955431505 No Longer Active Alina Castaneda MD PhD Active VERAPAMIL HCL CR 120 MG TAB CR 1 qPM VERAPAMIL HCL 19396060009 No Longer Active Salina Han A Active ZYPREXA 15 MG TABS Take 1 tablet by mouth daily OLANZAPINE 78101393051 No Longer Active Marvel MARROQUIN Active LISINOPRIL 20 MG TABS 1 BID LISINOPRIL 22725822534 Active Alina Castaneda MD PhD Active ALBUTEROL SULFATE (2.5 MG/3ML) 0.083% NEBU 1 neb tid and prn cough ALBUTEROL SULFATE 19571917632 No Longer Active Alina Castaneda MD PhD Active FLUVOXAMINE MALEATE 100 MG TABS Take one (1) tablet by mouth am, 1/2 at noon, 1 pm FLUVOXAMINE MALEATE 08495884427 Active Alina Castaneda MD PhD Active TRAVATAN Z 0.004 % SOLN 1 gtt each eye daily TRAVOPROST 09152913403 Active CRYSTAL Suarez Active LANTUS 100 UNIT/ML SOLN 60 units sq q hs INSULIN GLARGINE 06688735944 No Longer Active CRYSTAL Suarez Active ALBUTEROL SULFATE (2.5 MG/3ML) 0.083% NEBU 1 neb tid and prn cough ALBUTEROL SULFATE (2.5 MG/3ML) 0.083% NEBU 529082 ALBUTEROL SULFATE Inactive ZYPREXA 15 MG TABS Take 1 tablet by mouth daily ZYPREXA 15 MG TABS 386839 OLANZAPINE Inactive VERAPAMIL HCL CR 120 MG TAB CR 1 qPM VERAPAMIL HCL CR 120 MG TAB CR VERAPAMIL HCL Inactive ZYPREXA 10 MG TABS Take one by mouth daily ZYPREXA 10 MG TABS 260097 OLANZAPINE Inactive TOPROL XL 100 MG KW68Z-GSR 1 @ HS TOPROL XL 100 MG PZ30E-YCQ METOPROLOL SUCCINATE Inactive LEVEMIR 100 UNIT/ML SOLN 90 units SQ qHS LEVEMIR 100 UNIT/ML SOLN INSULIN DETEMIR Inactive PROMETHAZINE-CODEINE 6.25-10 MG/5ML SYRP 1 tsp po q 6 hours prn cough PROMETHAZINE-CODEINE 6.25-10 MG/5ML SYRP 663644 PROMETHAZINE- CODEINE Inactive GUAIFENESIN 600 MG LZ28X-QFZ 1 tablet by mouth twice daily if needed for cough GUAIFENESIN 600 MG [id number]-DWK GUAIFENESIN Inactive ALBUTEROL SULFATE 0.083 % NEBU SOLN one vial per nebulizer TID and PRN cough/ soa ALBUTEROL SULFATE 0.083 % NEBU SOLN 130548 ALBUTEROL SULFATE Inactive ZYPREXA 5 MG TABS take one tablet by mouth every evening ZYPREXA 5 MG TABS 075397 OLANZAPINE Inactive HYDROCODONE-ACETAMINOPHEN 5-325 MG TABS take one tablet by mouth every four hours as needed for pain HYDROCODONE-ACETAMINOPHEN 5-325 MG TABS 597962 HYDROCODONE-ACETAMINOPHEN Inactive BACTROBAN 2 % CREAM apply to ear and nose twice daily BACTROBAN 2 % CREAM 913667 MUPIROCIN CALCIUM Inactive CYCLOBENZAPRINE HCL 10 MG TABS 1/2 tablet by mouth every 8 hours as needed for muscle spasms CYCLOBENZAPRINE HCL 10 MG TABS 038177 CYCLOBENZAPRINE HCL Inactive NAVANE 10 MG CAPS 1/2 tablet twice a day NAVANE 10 MG CAPS THIOTHIXENE Inactive DOXEPIN HCL 10 MG CAPS Take 1 tablet by mouth daily DOXEPIN HCL 10 MG CAPS 2448022 DOXEPIN HCL Inactive HYDROCODONE-ACETAMINOPHEN 7.5-325 MG TABS 1 four times a day as needed for pain HYDROCODONE-ACETAMINOPHEN 7.5-325 MG TABS 535418 HYDROCODONE-ACETAMINOPHEN Inactive NIACIN CR 500 MG CR-TABS 2 qHS NIACIN CR 500 MG CR- TABS NIACIN Inactive ORPHENADRINE CITRATE ER 100 MG VM34W-BPQ 1 every 12 hr. as needed ORPHENADRINE CITRATE ER 100 MG YC80C-RXO ORPHENADRINE CITRATE Inactive ACETAMINOPHEN 500 MG TABS 2 Q 6 hr. PRN ACETAMINOPHEN 500 MG TABS 037048 ACETAMINOPHEN Inactive SAPHRIS 5 MG SUBL by mouth twice a day SAPHRIS 5 MG SUBL ASENAPINE MALEATE Inactive NIACIN ER 500 MG CR-TABS 4 qHS (for triglycerides) NIACIN ER 500 MG CR-TABS NIACIN Inactive IBUPROFEN 200 MG TABS 1 Q 6 hr. PRN IBUPROFEN 200 MG TABS 513202 IBUPROFEN Inactive FLUTICASONE PROPIONATE 50 MCG/ACT SUSP 2 sprays each nostril qDay x 30 days FLUTICASONE PROPIONATE 50 MCG/ACT SUSP 694306 FLUTICASONE PROPIONATE Inactive EQL TRUETEST TEST STRP Test blood sugar TID EQL TRUETEST TEST STRP GLUCOSE BLOOD Inactive TERESE CONTOUR TEST STRP monitor blood sugars 3x/day TERESE CONTOUR TEST STRP GLUCOSE BLOOD Inactive DETROL LA 4 MG MB06O-LCR Take 1 tablet by mouth daily DETROL LA 4 MG EK35F-CIT TOLTERODINE TARTRATE Inactive ZYPREXA 7.5 MG TABS 1 at HS ZYPREXA 7.5 MG TABS 402390 OLANZAPINE Inactive THIOTHIXENE 5 MG CAPS by mouth twice a day THIOTHIXENE 5 MG CAPS 993746 THIOTHIXENE Inactive UROXATRAL 10 MG QF89N-CVI Take 1 tablet by mouth daily UROXATRAL 10 MG GO15N-UAE ALFUZOSIN HCL Inactive ACYCLOVIR 400 MG ORAL TABS 1 pill three times daily x 5 days, for cold sore outbreak ACYCLOVIR 400 MG ORAL TABS 278800 ACYCLOVIR Inactive TRUETEST TEST STRP check sugars 4x/day TRUETEST TEST STRP GLUCOSE BLOOD Inactive HUMALOG 100 UNIT/ML SOLN Take 20 units with breakfast, 10u with lunch and suppetr. HUMALOG 100 UNIT/ML SOLN INSULIN LISPRO ( HUMAN) Inactive CYCLOBENZAPRINE HCL 10 MG TABS 1 tablet by mouth three times daily, scheduled CYCLOBENZAPRINE HCL 10 MG TABS 635736 CYCLOBENZAPRINE HCL Inactive ACCU-CHEK ROSA INVITR STRP use strips with device to check blood sugars 3 times daily ACCU-CHEK RSOA INVITR STRP GLUCOSE BLOOD Inactive ACCU-CHEK ROSA UZMA Use device to check blood sugars ACCU-CHEK ROSA UZMA BLOOD GLUCOSE MONITORING SUPPL Inactive CEFDINIR 300 MG CAPS by mouth twice a day CEFDINIR 300 MG CAPS 144802 CEFDINIR Inactive AZITHROMYCIN 500 MG SOLR 1 po q day AZITHROMYCIN 500 MG SOLR 759605 AZITHROMYCIN Inactive AMOXICILLIN 500 MG CAPS 2 po BID x 10 days AMOXICILLIN 500 MG CAPS 035045 AMOXICILLIN Inactive PENICILLIN V POTASSIUM 500 MG TABS 1 pill by mouth three times daily PENICILLIN V POTASSIUM 500 MG TABS 916599 PENICILLIN V POTASSIUM Inactive Immunizations Vaccine Administration [...] Fluvirin, Fluarix, Agriflu(>=18 yo)) Fluzone (>3 yrs.) [[id number]] Influenza, seasonal, injectable pneumococcal immunization administered Pneumovax [...] HGBA1C - Chemistry sodium, serum 131 mmol/L 981-468 8705/12/30 potassium, serum 5.0 mmol/L 3.5-5.2 chloride, serum 95 mmol/L 98-107 carbon dioxide, venous blood 26.7 mmol/L 21.0-32.0 blood glucose 112 mg/dL 65-110 calcium, serum 9.2 mg/dL 8.5-10.1 urea nitrogen, blood 12 mg/dL 7-18 creatinine, serum 1.10 mg/dL 0.60-1.30 hemoglobin A1C, blood, as % of total hemoglobin 5.8 % 4.3-6.0 Lab Report: Basic Metabolic Panel, HGBA1C, MICROALBUMIN - Chemistry sodium, serum 137 mmol/L 466-374 8668/05/19 potassium, serum 5.2 mmol/L 3.5-5.2 chloride, serum [...] microalbumin, urine 10 0-19 Lab Report: Chlamydia/GC APTIMA/36684, HIV-1/2 Agn/Dominga/45497, RPR (DX) W ... - Chemistry hepatitis B surface antigen NON-REACTIVE NON-REACTIVE Lab Report: Chlamydia/GC APTIMA/00837, HIV-1/2 Agn/Dominga/80352, RPR (DX) W ... - Lab chlamydia DNA probe NOT DETECTED NOT DETECTED Lab Report: Chlamydia/GC APTIMA/31044, HIV-1/2 Agn/Dominga/97138, RPR (DX) W ... - Microbiology Neisseria gonorrhoeae DNA probe NOT DETECTED NOT DETECTED Lab Report: Chlamydia/GC APTIMA/04467, HIV-1/2 Agn/Dominga/89346, RPR (DX) W ... - Serology rapid plasma reagin antibody titer NON-REACTIVE NON-REACTIVE Lab Report: Comp. Metabolic Panel - Chemistry sodium, serum 127 mmol/L 766-641 4922/10/27 potassium, serum 4.1 mmol/L 3.5-5.2 chloride, serum [...] CBC - Chemistry cholesterol, serum 131 mg/dL 738-363 9144/06/03 triglyceride, serum, fasting 383 mg/dL 30-200 HDL [...] 4.7 mg/dL 2.6-7.2 cholesterol, serum 142 mg/dL 514-465 3819/06/26 triglyceride, serum, fasting 272 mg/dL 30-200 HDL [...] mg/dL Encounters Code Encounter Date Provider Facility CPT-44062 Level 3 Est. Patient 14:46:15 JEANNINE Hickey MD [facility] CPT-26026 Level 3 Est. Patient 09:34:56 CDT Alina Castaneda MD [facility]-31355 Level 3 Est. Patient 21:40:19 CDT Mima Erazo APRN [facility]-66770 Level 3 Est. Patient 09:26:40 CDT Marvel Charles [facility]-07101 Level 3 Est. Patient 12:36:43 CDT Vanessa Hickey MD [facility]-55029 Level 3 Est. Patient 12:57:49 CDT Vanessa Hickey MD [facility]-68294 Level 3 Est. Patient 00:28:25 CDT Alina Castaneda MD [facility]38213 Level 2 Est. Patient 12:52:14 CDT Alina Castaneda MD [facility]-53052 Level 3 Est. Patient 11:51:18 LEGUILLON DEBEADER Alina Castaneda MD [facility] [place]-14026 Level 3 Est. Patient 10:09:22 LEGUILLON DEBEADER Alina Castaneda MD [facility]29791 Level 3 Est. Patient 14:36:26 LEGUILLON DEBEADER Marvel Charles [facility]-43927 Level 3 Est. Patient 13:34:47 LEGUILLON DEBEADER Alina Castaneda MD [facility] [place]-96027 Level 3 Est. Patient 19:52:08 LEGUILLON DEBEADER Alina Castaneda MD [facility] [place]-45342 Level 3 Est. Patient 10:01:51 LEGUILLON DEBEADER Marvel Charles [facility]-15984 Level 3 Est. Patient 21:54:06 CDT Vanessa Hickey MD [facility]-61582 Level 3 Est. Patient 08:54:46 CDT Alina Castaneda MD [facility] [place]-09069 Level 3 Est. Patient 09:32:11 CDT Marvel Thurstonestela [facility] CPT-47786 Level 3 Est. Patient 12:02:49 CDT Alina Castaneda MD [facility] [place]-72575 Level 3 Est. Patient 19:17:33 CDT Alina Castaneda MD PhD [facility]-36738 Level 3 Est. Patient 13:19:10 CDT Marvel Gurdeepajayestela [facility]-50886 Level 3 Est. Patient 08:20:05 CDT Alina Castaneda MD [facility] [place]-77048 Level 3 Est. Patient 15:17:18 CDT Alina Castaneda MD [facility] [place]-13919 Level 3 Est. Patient 14:25:36 LEGUILLON DEBEADER [facility] [place] [facility]28 Level 3 Est. Patient 10:09:15 LEGUILLON DEBEADER [facility]66092 Level 3 Est. Patient 21:28:43 CDT Alina Castaneda MD [facility] [place]-77505 Level 3 Est. Patient 15:20:11 CDT Marvel Araceli [facility] CPT-64403 Level 4 Est. Patient 19:08:12 CDT Alina Castaneda MD PhD [facility]-31663 Level 3 Est. Patient 15:06:39 CDT Marvel Chrales [facility]-82790 Level 4 Est. Patient 17:48:15 CDT Alina Castaneda MD [facility] [place]-15948 Level 3 Est. Patient 14:53:49 CDT Alina Castaneda MD [facility] [place]-42746 Level 3 Est. Patient 09:35:16 CDT Alina Castaneda MD [facility] [place]-00709 Level 3 Est. Patient 12:23:22 CDT Alina Castaneda MD [facility]74735 Level 3 Est. Patient 16:19:15 CDT Alina Castaneda MD [facility] [place]-23602 Level 3 Est. Patient 21:39:56 LEGUILLON DEBEADER Alina Castaneda MD [facility] [place]-36554 Level 4 Est. Patient 14:12:56 LEGUILLON DEBEADER Alina Castaneda MD [facility]51927 Level 2 Est. Patient 15:34:57 LEGUILLON DEBEADER Alina Castaneda MD [facility] [place]-50097 Level 3 Est. Patient 12:17:04 LEGUILLON DEBEADER Alina Castaneda MD [facility] [place]-78718 Level 3 Est. Patient 09:18:18 LEGUILLON DEBEADER Marvel Charles [facility]-34169 Level 2 Est. Patient 21:50:24 CDT Alina Castaneda MD [facility] [place]-56600 Level 3 Est. Patient 09:17:28 CDT Marvel Charles [facility]-39667 Level 4 Est. Patient 18:54:02 CDT Alina Castaneda MD [facility] [place]-43314 Level 3 Est. Patient 10:47:10 CDT Alina Castaneda MD [facility]81348 Level 3 Est. Patient 09:22:20 CDT Marvel Charles [facility]-66726 Level 3 Est. Patient 16:39:43 CDT [facility] [place] [facility]-13398 Level 3 Est. Patient 16:05:16 CDT Alina Castaneda MD [facility] CPT-04845 Level 3 Est. Patient 00:29:15 CDT Alina Castaneda MD [facility] CPT-45500 Level 3 Est. Patient 10:49:22 LEGUILLON DEBEADER Marvel Thurstonestela [facility] CPT-20771 Level 3 Est. Patient 21:30:19 LEGUILLON DEBEADER Alina Castaneda MD [facility] CPT-17114 Level 4 Est. Patient 17:04:11 LEGUILLON DEBEADER Brooksnivia Thurstonestela [facility] CPT-56410 Level 3 Est. Patient 15:34:11 LEGUILLON DEBEADER [facility]-57621 Level 2 Est. Patient 12:51:58 LEGUILLON DEBEADER Alina Castaneda MD [facility] CPT-57800 Level 3 Est. Patient 13:20:01 LEGUILLON DEBEADER Alina Castaneda MD [facility] CPT-07930 Level 3 Est. Patient 09:23:35 CDT Alina Castaneda MD [facility] Procedures Code Procedure Name Date Entry Date Standard Description CPT-45693 Bladder Scan 12:36:44 CDT CPT-08751 Bladder Scan 21:54:06 CDT CPT-G0008 Administration of Influenza Virus Vaccine 13:05:26 CDT CPT-21566 Fluzone Quadrivalent Intramuscular Suspension 0.5 ML 13: 05:26 CDT CPT-33672 Administration single or combination vaccine inc oral 11 :49:51 CDT CPT-92842 Pneumovax 11:49:51 CDT CPT-61285 Ribs unilateral 2V 12:37:22 LEGUILLON DEBEADER CPT-28224 Chest 2V Frontal and Lat 17:15:26 CDT CPT-18361 Abx/Therapy Injection 18:54:02 CDT CPT-J0696 Rocephin 1000 mg (Ceftriaxone) 16:00:32 CDT CPT-99633 Chest 2V Frontal and Lat 15:26:45 CDT CPT-35520 Chest 2V Frontal and Lat 10:23:27 CDT CPT-79092 Venipuncture Draw Fee 10:11:00 CDT CPT-77317 Administration single or combination vaccine inc oral 11 :56:38 CDT CPT-41016 Influenza split virus > age 3 11:56:38 CDT CPT-98835 Venipuncture Draw Fee 08:49:54 LEGUILLON DEBEADER CPT-69839 EKG Trac and Interp 17:54:19 LEGUILLON DEBEADER
--- OUTSIDE RECORDS SUMMARY | 2018-07-02 14:06 | XMS REPORT | Clinical Summary ---
Author Author Admin, TERELL Organization [facility] Address Unknown Phone Unavailable Allergies, Adverse Reactions, [...] unspecified Diabetes mellitus, type II 250.00 Active Zaineh Araceli MARROQUIN Diabetes mellitus without mention of [...] and floor of mouth, uncomplicated 873.64 Active lAina Castaneda MD PhD Open wound of tongue and floor of mouth, uncomplicated Chest pain, atypical 786.59 Active Alina Castaneda MD PhD Other chest pain WOUND, OPEN, NOSE ICD-873.20 Inactive Alina [...] STRP check blood sugars 3x/day GLUCOSE BLOOD 75383632402 Active Marvel MENDOZAP Active ACCU-CHEK ROSA UZMA Use device to check blood sugars BLOOD GLUCOSE MONITORING SUPPL 09498646677 No Longer Active Marvel MENDOZAP Active ACCU-CHEK ROSA INVITR STRP use strips with device to check blood sugars 3 times daily GLUCOSE BLOOD 23165357070 No [facility] Active VERAPAMIL HCL ER 180 MG ORAL CR-TABS 1 pill by mouth twice daily, for migraine prevention VERAPAMIL HCL 66987185268 Active Alina Castaneda MD PhD Active CYCLOBENZAPRINE HCL 10 MG TABS 1 tablet by mouth three times daily, scheduled CYCLOBENZAPRINE HCL 07258203233 No Longer Active Alina Castaneda MD PhD Active HUMALOG 100 UNIT/ML SOLN Take 20 units with breakfast, 10u with lunch and suppetr. INSULIN LISPRO (HUMAN) 91694429837 No Longer Active Alina Castaneda MD PhD Active TRUETEST TEST STRP check sugars 4x/day GLUCOSE BLOOD 48257053229 No Longer Active Alina Castaneda MD PhD Active MORPHINE SULFATE 30 MG TABS 1 pill by mouth twice daily, for pain MORPHINE SULFATE 20746086866 Active Alina Castaneda MD PhD Active ACYCLOVIR 400 MG ORAL TABS 1 pill three times daily x 5 days, for cold sore outbreak ACYCLOVIR 90489131203 No Longer Active Alina Castaneda MD PhD Active PENICILLIN V POTASSIUM 500 MG TABS 1 pill by mouth three times daily PENICILLIN V POTASSIUM 07405773274 No Longer Active Alina Castaneda MD PhD Active LATUDA 80 MG TABS 1 tab by mouth every evening LURASIDONE HCL 42927651321 Active Alina Castaneda MD PhD Active UROXATRAL 10 MG [id number]-[id number] Take 1 tablet by mouth daily ALFUZOSIN HCL 19857561229 No Longer Active Alina Castaneda MD PhD Active THIOTHIXENE 5 MG CAPS by mouth twice a day THIOTHIXENE 52104811216 No Longer Active Alina Castaneda MD PhD Active ZYPREXA 7.5 MG TABS 1 at HS OLANZAPINE 53131953754 No Longer Active Alina Castaneda MD PhD Active LEVEMIR 100 UNIT/ML SOLN Take 70 u at 7-8pm INSULIN DETEMIR 61178220757 Active Maljohn Ziglari GLOBAL PROJECT MANAGER Active BD INSULIN SYRINGE 28G X 1/2" 1 ML MISC 1 four times per day INSULIN SYRINGE-NEEDLE U-100 51706939946 Active Marvel Mackenzieglari GLOBAL PROJECT MANAGER Active TOLTERODINE TARTRATE 2 MG TABS 1 pill twice daily, for bladder TOLTERODINE TARTRATE 90689017940 Active Alina Castaneda MD PhD Active DETROL LA 4 MG [id number]-QBI Take 1 tablet by mouth daily TOLTERODINE TARTRATE 44219147430 No Longer Active Alina Castaneda MD PhD Active HYDROCODONE-ACETAMINOPHEN 5-325 MG TABS 2 tabs by mouth three times daily as needed for pain HYDROCODONE-ACETAMINOPHEN 82600999508 Active Alina Castaneda MD PhD Active TERESE CONTOUR TEST STRP monitor blood sugars 3x/day GLUCOSE BLOOD 91847542751 No Longer Active Alina Castaneda MD PhD Active EQL TRUETEST TEST STRP Test blood sugar TID GLUCOSE BLOOD 81974669370 No Longer Active Alina Castaneda MD PhD Active FLUTICASONE PROPIONATE 50 MCG/ACT SUSP 2 sprays each nostril qDay x 30 days FLUTICASONE PROPIONATE 22096558925 No Longer Active Alina Castaneda MD PhD Active IBUPROFEN 200 MG TABS 1 Q 6 hr. PRN IBUPROFEN 07998838404 No Longer Active Alina Castaneda MD PhD Active NIACIN ER 500 MG CR-TABS 4 qHS (for triglycerides) NIACIN 35705882926 No Longer Active Alina Castaneda MD PhD Active ALFUZOSIN HCL ER 10 MG [id number] 1 tablet daily ALFUZOSIN HCL 00254078261 Active Vanessa Hickey MD Active CLONAZEPAM 1 MG TABS 1 pill by mouth three times daily CLONAZEPAM 79286541612 Active Alina Castaneda MD PhD Active LOVAZA 1 GM CAPS 4 daily (for triglycerides) [id number] ETHYL ESTERS 83839135717 Active Alina Castaneda MD PhD Active SAPHRIS 5 MG SUBL by mouth twice a day ASENAPINE MALEATE 71569212413 No Longer Active Maljohn Mackenzieglari GLOBAL PROJECT MANAGER Active ACETAMINOPHEN 500 MG TABS 2 Q 6 hr. PRN ACETAMINOPHEN 75986792221 No Longer Active Maliheh Ziglari GLOBAL PROJECT MANAGER Active ORPHENADRINE CITRATE ER 100 MG [id number] 1 every 12 hr. as needed ORPHENADRINE CITRATE 13720934324 No Longer Active Alina Castaneda MD PhD Active NIACIN CR 500 MG CR-TABS 2 qHS NIACIN 50628515751 No Longer Active Alina Castaneda MD PhD Active AMOXICILLIN 500 MG CAPS 2 po BID x 10 days AMOXICILLIN 49410491039 No Longer Active Alina Castaneda MD PhD Active HYDROCODONE-ACETAMINOPHEN 7.5-325 MG TABS 1 four times a day as needed for pain HYDROCODONE-ACETAMINOPHEN 84430078179 No Longer Active Alina Castaneda MD PhD Active METFORMIN HCL ER 500 MG [id number]-FOY Take three tablets by mouth everyday METFORMIN HCL 65203245652 Active Alina Castaneda MD PhD Active DOXEPIN HCL 10 MG CAPS Take 1 tablet by mouth daily DOXEPIN HCL 99091943643 No Longer Active Salina Han [facility] Active NAVANE 10 MG CAPS 1/2 tablet twice a day THIOTHIXENE No Longer Active Salina Han [facility] Active CYCLOBENZAPRINE HCL 10 MG TABS 1/2 tablet by mouth every 8 hours as needed for muscle spasms CYCLOBENZAPRINE HCL 64750197076 No Longer Active Alina Castaneda MD PhD Active BACTROBAN 2 % CREAM apply to ear and nose twice daily MUPIROCIN CALCIUM 29238818868 No Longer Active Alina Castaneda MD PhD Active HYDROCODONE-ACETAMINOPHEN 5-325 MG TABS take one tablet by mouth every four hours as needed for pain HYDROCODONE-ACETAMINOPHEN 42132955135 No Longer Active Alina Castaneda MD PhD Active ZOLPIDEM TARTRATE 10 MG TABS take at bedtime ZOLPIDEM TARTRATE 19874250098 Active Alina Castaneda MD PhD Active ZYPREXA 5 MG TABS take one tablet by mouth every evening OLANZAPINE 85544879973 No Longer Active Alina Castaneda MD PhD Active ALBUTEROL SULFATE 0.083 % NEBU SOLN one vial per nebulizer TID and PRN cough/ soa ALBUTEROL SULFATE 84695193543 No Longer Active Alina Castaneda MD PhD Active GUAIFENESIN 600 MG DM42H-TEF 1 tablet by mouth twice daily if needed for cough GUAIFENESIN 78786613490 No Longer Active Marvel MARROQUIN Active AZITHROMYCIN 500 MG SOLR 1 po q day AZITHROMYCIN 12952099410 No Longer Active Alina Castaneda MD PhD Active METOPROLOL SUCCINATE 100 MG ZI36H-NPU 1 by mouth daily for blood pressure METOPROLOL SUCCINATE 94852358537 Active Alina Castaneda MD PhD Active PROMETHAZINE-CODEINE 6.25-10 MG/5ML SYRP 1 tsp po q 6 hours prn cough PROMETHAZINE-CODEINE 05456943717 No Longer Active Alina Castaneda MD PhD Active CEFDINIR 300 MG CAPS by mouth twice a day CEFDINIR 33119199889 No Longer Active Alina Castaneda MD PhD Active METFORMIN HCL 500 MG [id number]-KWL Take 3 tablets by mouth everyday METFORMIN HCL 85327771796 No Longer Active Alina Castaneda MD PhD Active LEVEMIR 100 UNIT/ML SOLN 90 units SQ qHS INSULIN DETEMIR 67593472296 No Longer Active Marvel MARROQUIN Active TOPROL XL 100 MG [id number]-SQN 1 @ HS METOPROLOL SUCCINATE 58233361866 No Longer Active Marvel MARROQUIN Active ALLOPURINOL 300 MG TABS Take one by mouth daily ALLOPURINOL 80907061572 Active Alina Castaneda MD PhD Active ZYPREXA 10 MG TABS Take one by mouth daily OLANZAPINE 28950803447 No Longer Active Alina Castaneda MD PhD Active NOVOLOG 100 UNIT/ML SOLN 40 units with every meal INSULIN ASPART 01854363955 No Longer Active Alina Castaneda MD PhD Active VERAPAMIL HCL CR 120 MG TAB CR 1 qPM VERAPAMIL HCL 42053277474 No Longer Active Salina Han [facility] Active ZYPREXA 15 MG TABS Take 1 tablet by mouth daily OLANZAPINE 05840015079 No Longer Active Marvel MARROQUIN Active LISINOPRIL 20 MG TABS 1 BID LISINOPRIL 39528976591 Active Alina Castaneda MD PhD Active ALBUTEROL SULFATE (2.5 MG/3ML) 0.083% NEBU 1 neb tid and prn cough ALBUTEROL SULFATE 06060732101 No Longer Active Alina Castaneda MD PhD Active FLUVOXAMINE MALEATE 100 MG TABS Take one (1) tablet by mouth am, 05/25 at noon, 1 pm FLUVOXAMINE MALEATE 47010232917 Active Alina Castaneda MD PhD Active TRAVATAN Z 0.004 % SOLN 1 gtt each eye daily TRAVOPROST 38818473160 Active CRYSTAL Suarez Active LANTUS 100 UNIT/ML SOLN 60 units sq q hs INSULIN GLARGINE 48181941484 No Longer Active CRYSTAL Suarez Active ALBUTEROL SULFATE (2.5 MG/3ML) 0.083% NEBU 1 neb tid and prn cough ALBUTEROL SULFATE (2.5 MG/3ML) 0.083% NEBU 552269 ALBUTEROL SULFATE Inactive ZYPREXA 15 MG TABS Take 1 tablet by mouth daily ZYPREXA 15 MG TABS 695520 OLANZAPINE Inactive VERAPAMIL HCL CR 120 MG TAB CR 1 qPM VERAPAMIL HCL CR 120 MG TAB CR VERAPAMIL HCL Inactive ZYPREXA 10 MG TABS Take one by mouth daily ZYPREXA 10 MG TABS 611849 OLANZAPINE Inactive TOPROL XL 100 MG [id number] 1 @ HS TOPROL XL 100 MG UK23A-YKM METOPROLOL SUCCINATE Inactive LEVEMIR 100 UNIT/ML SOLN 90 units SQ qHS LEVEMIR 100 UNIT/ML SOLN INSULIN DETEMIR Inactive PROMETHAZINE-CODEINE 6.25-10 MG/5ML SYRP 1 tsp po q 6 hours prn cough PROMETHAZINE-CODEINE 6.25-10 MG/5ML SYRP 836171 PROMETHAZINE- CODEINE Inactive GUAIFENESIN 600 MG [id number] 1 tablet by mouth twice daily if needed for cough GUAIFENESIN 600 MG [id number]-AML GUAIFENESIN Inactive ALBUTEROL SULFATE 0.083 % NEBU SOLN one vial per nebulizer TID and PRN cough/ soa ALBUTEROL SULFATE 0.083 % [facility] 83[facility] ALBUTEROL SULFATE Inactive ZYPREXA 5 MG TABS take one tablet by mouth every evening ZYPREXA 5 MG TABS 635007 OLANZAPINE Inactive HYDROCODONE-ACETAMINOPHEN 5-325 MG TABS take one tablet by mouth every four hours as needed for pain HYDROCODONE-ACETAMINOPHEN 5-325 MG TABS 496436 HYDROCODONE-ACETAMINOPHEN Inactive BACTROBAN 2 % CREAM apply to ear and nose twice daily BACTROBAN 2 % CREAM 997714 MUPIROCIN CALCIUM Inactive CYCLOBENZAPRINE HCL 10 MG TABS 1/2 tablet by mouth every 8 hours as needed for muscle spasms CYCLOBENZAPRINE HCL 10 MG TABS 904082 CYCLOBENZAPRINE HCL Inactive NAVANE 10 MG CAPS 1/2 tablet twice a day NAVANE 10 MG CAPS THIOTHIXENE Inactive DOXEPIN HCL 10 MG CAPS Take 1 tablet by mouth daily DOXEPIN HCL 10 MG CAPS 3730315 DOXEPIN HCL Inactive HYDROCODONE-ACETAMINOPHEN 7.5-325 MG TABS 1 four times a day as needed for pain HYDROCODONE-ACETAMINOPHEN 7.5-325 MG TABS 414789 HYDROCODONE-ACETAMINOPHEN Inactive NIACIN CR 500 MG CR-TABS 2 qHS NIACIN CR 500 MG CR- TABS NIACIN Inactive ORPHENADRINE CITRATE ER 100 MG [id number] 1 every 12 hr. as needed ORPHENADRINE CITRATE ER 100 MG [id number] ORPHENADRINE CITRATE Inactive ACETAMINOPHEN 500 MG TABS 2 Q 6 hr. PRN ACETAMINOPHEN 500 MG TABS 597801 ACETAMINOPHEN Inactive SAPHRIS 5 MG SUBL by mouth twice a day SAPHRIS 5 MG SUBL ASENAPINE MALEATE Inactive NIACIN ER 500 MG CR-TABS 4 qHS (for triglycerides) NIACIN ER 500 MG CR-TABS NIACIN Inactive IBUPROFEN 200 MG TABS 1 Q 6 hr. PRN IBUPROFEN 200 MG TABS 041979 IBUPROFEN Inactive FLUTICASONE PROPIONATE 50 MCG/ACT SUSP 2 sprays each nostril qDay x 30 days FLUTICASONE PROPIONATE 50 MCG/ACT SUSP 241750 FLUTICASONE PROPIONATE Inactive EQL TRUETEST TEST STRP Test blood sugar TID EQL TRUETEST TEST STRP GLUCOSE BLOOD Inactive TERESE CONTOUR TEST STRP monitor blood sugars 3x/day TERESE CONTOUR TEST STRP GLUCOSE BLOOD Inactive DETROL LA 4 MG [id number] Take 1 tablet by mouth daily DETROL LA 4 MG [id number] TOLTERODINE TARTRATE Inactive ZYPREXA 7.5 MG TABS 1 at HS ZYPREXA 7.5 MG TABS 155696 OLANZAPINE Inactive THIOTHIXENE 5 MG CAPS by mouth twice a day THIOTHIXENE 5 MG CAPS 832146 THIOTHIXENE Inactive UROXATRAL 10 MG ML39W-HQK Take 1 tablet by mouth daily UROXATRAL 10 MG [id number] ALFUZOSIN HCL Inactive ACYCLOVIR 400 MG ORAL TABS 1 pill three times daily x 5 days, for cold sore outbreak ACYCLOVIR 400 MG ORAL TABS 022144 ACYCLOVIR Inactive TRUETEST TEST STRP check sugars 4x/day TRUETEST TEST STRP GLUCOSE BLOOD Inactive HUMALOG 100 UNIT/ML SOLN Take 20 units with breakfast, 10u with lunch and suppetr. HUMALOG 100 UNIT/ML SOLN INSULIN LISPRO ( HUMAN) Inactive CYCLOBENZAPRINE HCL 10 MG TABS 1 tablet by mouth three times daily, scheduled CYCLOBENZAPRINE HCL 10 MG TABS 584814 CYCLOBENZAPRINE HCL Inactive ACCU-CHEK ROSA INVITR STRP use strips with device to check blood sugars 3 times daily ACCU-CHEK ROSA INVITR STRP GLUCOSE BLOOD Inactive ACCU-CHEK ROSA UZMA Use device to check blood sugars ACCU-CHEK ROSA UZMA BLOOD GLUCOSE MONITORING SUPPL Inactive CEFDINIR 300 MG CAPS by mouth twice a day CEFDINIR 300 MG CAPS 414080 CEFDINIR Inactive AZITHROMYCIN 500 MG SOLR 1 po q day AZITHROMYCIN 500 MG SOLR 065696 AZITHROMYCIN Inactive AMOXICILLIN 500 MG CAPS 2 po BID x 10 days AMOXICILLIN 500 MG CAPS 727925 AMOXICILLIN Inactive PENICILLIN V POTASSIUM 500 MG TABS 1 pill by mouth three times daily PENICILLIN V POTASSIUM 500 MG TABS 918918 PENICILLIN V POTASSIUM Inactive Immunizations Vaccine Administration [...] Fluvirin, Fluarix, Agriflu(>=18 yo)) Fluzone (>3 yrs.) [EEV018] Influenza, seasonal, injectable pneumococcal immunization administered Pneumovax [...] HGBA1C - Chemistry sodium, serum 130 mmol/L 376-832 8672/06/09 potassium, serum 4.0 mmol/L 3.5-5.2 chloride, serum 92 mmol/L 98-107 carbon dioxide, venous blood 22.1 mmol/L 21.0-32.0 blood glucose 60 mg/dL 65-110 calcium, serum 9.5 mg/dL 8.5-10.1 urea nitrogen, blood 14 mg/dL 7-18 creatinine, serum 1.30 mg/dL 0.60-1.30 hemoglobin A1C, blood, as % of total hemoglobin 6.0 % 4.3-6.0 sodium, serum 131 mmol/L 802-456 3636/12/30 potassium, serum 5.0 mmol/L 3.5-5.2 chloride, serum [...] 6.0 mg/dL 2.6-7.2 sodium, serum 130 mmol/L 256-557 9099/05/01 potassium, serum 5.2 mmol/L 3.5-5.2 chloride, serum [...] 0.40 mg/dL 0.00-1.00 cholesterol, serum 151 mg/dL 082-024 2521/05/01 triglyceride, serum, fasting 356 mg/dL 30-200 HDL cholesterol, serum 19 mg/dL 32-96 LDL cholesterol, serum 61 mg/dL 0-130 TSH 2.22 m[iU]/mL 0.36-3.74 prostate specific antigen 0.11 ng/mL 0.00-4.00 Lab Report: CBC, CMP, Lipid Panel, TSH, PSA, microalbumin, uric acid - Hematology leukocyte count, blood 7.8 10^3/MM^3 10*3/mm3 4.6-10.2 erythrocyte (RBC) count 5.07 10^6/MM^3 10*6/mm3 4.69-6.13 hemoglobin, blood 15.3 g/dL 13.5-17.5 hematocrit, blood 44.2 % 41.0-53.0 mean corpuscular volume, RBC 87 fL 80-97 mean corpuscular hemoglobin, RBC 30.1 pg 27.0-31.2 mean corpuscular hemoglobin concentration, RBC 34.5 G/DL % 31.8- 35.4 red blood cell distribution width 15.0 % 11.6-14.8 platelet count 304 10^3/MM^3 10*3/mm3 142-424 Lab Report: CBC, CMP, Lipid Panel, TSH, PSA, microalbumin, uric acid - Lab microalbumin, urine 10 0-19 Lab Report: Comp. Metabolic Panel - Chemistry sodium, serum 127 mmol/L 005-500 0024/10/27 potassium, serum 4.1 mmol/L 3.5-5.2 chloride, serum [...] mg/dL Encounters Code Encounter Date Provider Facility CPT-50651 Level 2 Est. Patient 12:52:14 CDT Alina Castaneda MD [facility]-63412 Level 3 Est. Patient 11:51:18 REFRIGERATION ENGINE OPERATOR Alina Castaneda MD [facility] CPT-21078 Level 3 Est. Patient 10:09:22 REFRIGERATION ENGINE OPERATOR Alina Castaneda MD [facility]-62160 Level 3 Est. Patient 14:36:26 REFRIGERATION ENGINE OPERATOR Marvel Charles [facility] CPT-96378 Level 3 Est. Patient 13:34:47 REFRIGERATION ENGINE OPERATOR Alina Castaneda MD [facility] CPT-33213 Level 3 Est. Patient 19:52:08 REFRIGERATION ENGINE OPERATOR Alina Castaneda MD [facility]-85048 Level 3 Est. Patient 10:01:51 REFRIGERATION ENGINE OPERATOR Marvel Charles [facility] CPT-70519 Level 3 Est. Patient 21:54:06 CDT Vanessa Hickey MD [facility]-08133 Level 3 Est. Patient 08:54:46 CDT Alina Castaneda MD [facility]67063 Level 3 Est. Patient 09:32:11 [facility]-08791 Level 3 Est. Patient 12:02:49 CDT Alina Castaneda MD [facility]-52468 Level 3 Est. Patient 19:17:33 CDT Alina Castaneda MD [facility]63377 Level 3 Est. Patient 13:19:10 CDT Marvel Charles [facility]-68638 Level 3 Est. Patient 08:20:05 CDT Alina Castaneda MD [facility]95763 Level 3 Est. Patient 15:17:18 CDT Alina Castaneda MD [facility]69027 Level 3 Est. Patient 14:25:36 REFRIGERATION ENGINE OPERATOR Marvel Charles [facility]-03735 Level 3 Est. Patient 10:09:15 REFRIGERATION ENGINE OPERATOR Marvel Charles [facility]-46919 Level 3 Est. Patient 21:28:43 CDT Alina Castaneda MD [facility]-64776 Level 3 Est. Patient 15:20:11 [facility] Level 4 Est. Patient 19:08:12 CDT Alina Castaneda MD [facility]29518 Level 3 Est. Patient 15:06:39 CDT Marvel Araceli [facility]-03583 Level 4 Est. Patient 17:48:15 CDT Alina Castaneda MD [facility]68770 Level 3 Est. Patient 14:53:49 CDT Alina Castaneda MD [facility]10715 Level 3 Est. Patient 09:35:16 CDT Alina Castaneda MD [facility]-61951 Level 3 Est. Patient 12:23:22 CDT Alina Castaneda MD [facility]74769 Level 3 Est. Patient 16:19:15 CDT Alina Castaneda MD [facility]73268 Level 3 Est. Patient 21:39:56 REFRIGERATION ENGINE OPERATOR Alina Castaneda MD [facility]-88631 Level 4 Est. Patient 14:12:56 REFRIGERATION ENGINE OPERATOR Alina Castaneda MD [facility]34482 Level 2 Est. Patient 15:34:57 REFRIGERATION ENGINE OPERATOR Alina Castaneda MD [facility]-14531 Level 3 Est. Patient 12:17:04 REFRIGERATION ENGINE OPERATOR Alina Castaneda MD [facility]-65511 Level 3 Est. Patient 09:18:18 REFRIGERATION ENGINE OPERATOR Marvel Charles [facility]-95623 Level 2 Est. Patient 21:50:24 CDT Alina Castaneda MD [facility]-59419 Level 3 Est. Patient 09:17:28 CDT Marvel Charles [facility]-05054 Level 4 Est. Patient 18:54:02 CDT Alina Castaneda MD [facility]-51587 Level 3 Est. Patient 10:47:10 CDT Alina Castaneda [facility]96843 Level 3 Est. Patient 09:22:20 CDT Marvel Charles [facility]79823 Level 3 Est. Patient 16:39:43 CDT Marvel Charles [facility]-94305 Level 3 Est. Patient 16:05:16 CDT Alina Castaneda MD [facility] CPT-62631 Level 3 Est. Patient 00:29:15 CDT Alina Castaneda MD [facility] CPT-94875 Level 3 Est. Patient 10:49:22 REFRIGERATION ENGINE OPERATOR Brook[place] Thurstonestela [facility] CPT-94685 Level 3 Est. Patient 21:30:19 REFRIGERATION ENGINE OPERATOR Alina Castaneda MD [facility] CPT-02833 Level 4 Est. Patient 17:04:11 REFRIGERATION ENGINE OPERATOR [facility] [place]-53487 Level 3 Est. Patient 15:34:11 REFRIGERATION ENGINE OPERATOR [facility] [place]-15442 Level 2 Est. Patient 12:51:58 REFRIGERATION ENGINE OPERATOR Alina Castaneda MD [facility] CPT-09393 Level 3 Est. Patient 13:20:01 REFRIGERATION ENGINE OPERATOR Alina Castaneda MD [facility] CPT-99172 Level 3 Est. Patient 09:23:35 CDT Alina Castaneda MD [facility] Procedures Code Procedure Name Date Entry Date Standard Description CPT-10964 Bladder Scan 21:54:06 CDT CPT-G0008 Administration of Influenza Virus Vaccine 13:05:26 CDT CPT-60615 Fluzone Quadrivalent Intramuscular Suspension 0.5 ML 13: 05:26 CDT CPT-14021 Administration single or combination vaccine inc oral 11 :49:51 CDT CPT-24961 Pneumovax 11:49:51 CDT CPT-07861 Ribs unilateral 2V 12:37:22 REFRIGERATION ENGINE OPERATOR CPT-23648 Chest 2V Frontal and Lat 17:15:26 CDT CPT-01595 Abx/Therapy Injection 18:54:02 CDT CPT-J0696 Rocephin 1000 mg (Ceftriaxone) 16:00:32 CDT CPT-81168 Chest 2V Frontal and Lat 15:26:45 CDT CPT-71272 Chest 2V Frontal and Lat 10:23:27 CDT CPT-01273 Venipuncture Draw Fee 10:11:00 CDT CPT-18585 Administration single or combination vaccine inc oral 11 :56:38 CDT CPT-21498 Influenza split virus > age 3 11:56:38 CDT CPT-85676 Venipuncture Draw Fee 08:49:54 REFRIGERATION ENGINE OPERATOR CPT-90093 EKG Trac and Interp 17:54:19 REFRIGERATION ENGINE OPERATOR
--- OUTSIDE RECORDS SUMMARY | 2018-07-02 14:08 | XMS REPORT | Clinical Summary ---
Author Author Admin, TERELL Organization [facility] [employer] Address Unknown Phone Unavailable Allergies, Adverse Reactions, [...] stated as uncontrolled Dizziness 780.4 Resolved Alina aCstaneda MD PhD Dizziness and giddiness Confusion 298.9 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 Erazo ASSEMBLY SUPERVISOR Benign paroxysmal positional vertigo Vertigo, benign paroxysmal position 386.11 Inactive Mima Erazo ASSEMBLY SUPERVISOR Benign paroxysmal positional vertigo High-risk sexual behavior V69.2 Active Alina Castaneda MD PhD High-risk sexual behavior Erectile dysfunction 302.72 Active Alina Castaneda MD PhD Psychosexual dysfunction with inhibited sexual excitement Constipation 564.00 Active Alina Castaneda MD PhD Constipation, unspecified Skin lesion 709.9 Active Alina Castaneda MD PhD Unspecified disorder of skin and subcutaneous tissue Malaise and fatigue 780.79 Active Cherelle Speaks ASSEMBLY SUPERVISOR Other malaise and fatigue Diarrhea 787.91 Active Cherelle Speaks ASSEMBLY SUPERVISOR Diarrhea PHARYNGITIS 462 Active Cherelle Speaks ASSEMBLY SUPERVISOR Acute pharyngitis Colitis 558.9 Active Mima Erazo ASSEMBLY SUPERVISOR Other and unspecified noninfectious gastroenteritis and colitis Chronic pain - on daily narcotics 338.29 Active Mason Loredo MD Other chronic pain DIABETES, TYPE 2 ICD-250.00 Inactive Alina Castaneda [...] RIGHT SIDED ICD-786.50 Roro Castaneda MD PhD FH STROKE ICD-V17.1 Inactive Marvel MARROQUIN ABNORMAL HEART RHYTHMS ICD-427.9 Roro Castaneda MD PhD DIABETIC HYPOGLYCEMIA, TYPE II ICD-250.80 Inactive Marvel 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 Inactive Alina Castaneda MD PhD Diabetes mellitus, type II, uncontrolled ICD-250.02 Inactive Alina Castaneda MD PhD SINUSITIS, ACUTE ICD-461.9 Roro Castaneda MD PhD SKIN LESION ICD-709.9 Inactive Alina Castaneda MD PhD Dizziness ICD-780.4 Inactive Alina Castaneda MD PhD Confusion ICD-298.9 Inactive Alina Castaneda MD PhD Open wound of tongue and floor of mouth, uncomplicated ICD-873.64 Inactive Alina Castaneda MD PhD Chest pain, atypical ICD-786.59 Inactive Alina Castaneda MD PhD Chest pain, atypical ICD-786.59 Inactive Alina Castaneda MD PhD SPECIAL SCREENING FOR MALIGNANT NEOPLASM OF PROSTATE ICD-V76.44 Inactive Alina Castaneda MD PhD Hypoglycemia ICD-251.2 Inactive Alina Castaneda MD PhD Medication List Medication Instructions Start Date Stop Date Generic Name NDC Status Provider Patient Instruction VITAMIN D 2000 UNIT ORAL CAPS Take one by mouth daily CHOLECALCIFEROL 49862407839 Active Mima Yokum ASSEMBLY SUPERVISOR Active LATUDA 60 MG ORAL TABS Take one by mouth daily LURASIDONE HCL 74441318554 No Longer Active Mima Yokum ASSEMBLY SUPERVISOR Active HUMALOG KWIKPEN 100 UNIT/ML SC SOPN sliding scale if needed INSULIN LISPRO (HUMAN) 15546127211 Active Mima Yokum ASSEMBLY SUPERVISOR Active MORPHINE SULFATE 30 MG ORAL TABS by mouth twice a day MORPHINE SULFATE 76973361226 Active Salina Han A Active TRAZODONE HCL 100 MG TABS 1 every night to prevent headaches TRAZODONE HCL 28902662406 Active Gabrielle Madl COMMUNITY SERVICE MANAGER Active LATUDA 60 MG ORAL TABS 1 tab daily LURASIDONE HCL 63093710675 Active Gabrielle Madl COMMUNITY SERVICE MANAGER Active CLONAZEPAM 1 MG TABS 1 pill by mouth three times daily CLONAZEPAM 26116977721 Active Gabrielle Madl COMMUNITY SERVICE MANAGER Active [facility] MILK OF MAGNESIA 400 MG/5ML ORAL SUSP 30ml by mouth bid prn MAGNESIUM HYDROXIDE 31270071778 Active Mason Loredo MD Active TYLENOL 8 HOUR 650 MG ORAL CR-TABS 1 tab QID prn ACETAMINOPHEN 89462448771 Active Mason Loredo MD Active MYLANTA GAS RELIEF MAXIMUM STR 125 MG ORAL CAPS 30cc every 4 hours prn 12/01 SIMETHICONE 86767931104 Active Mason Loredo MD Active IMODIUM A-D 2 MG ORAL TABS 1 tab QID as needed LOPERAMIDE HCL 56275109131 Active Mason Loredo MD Active FLUVOXAMINE MALEATE 50 MG ORAL TABS 1 tab by mouth daily FLUVOXAMINE MALEATE 04012529678 Active Mason Loredo MD Active TRAVATAN Z 0.004 % SOLN 1 gtt each eye daily TRAVOPROST 32656062917 No Longer Active Mason Loredo MD Active LISINOPRIL 20 MG TABS 1 BID LISINOPRIL 00170729926 No Longer Active Mason Loredo MD Active LEVEMIR FLEXTOUCH 100 UNIT/ML SC SOPN 60 units SQ each evening, for diabetes INSULIN DETEMIR 87717920984 Active Desi Nicholson Active ZOLPIDEM TARTRATE 10 MG TABS take at bedtime ZOLPIDEM TARTRATE 34398756664 No Longer Active Mason Loredo MD Active HYDROCODONE-ACETAMINOPHEN 5-325 MG TABS 2 tabs by mouth three times daily for pain HYDROCODONE-ACETAMINOPHEN 67328836629 No Longer Active Mason Loredo MD Active ZOFRAN 4 MG TABS 1 po q4hr PRN Nausea ONDANSETRON HCL 60005159368 No Longer Active Mason Loredo MD Active LOMOTIL 2.5-0.025 MG ORAL TABS take 1-2 tabs PO after each stool, no more than 8 in 24 hours DIPHENOXYLATE-ATROPINE 81003224459 No Longer Active Mason Loredo MD Active COLACE 100 MG CAPS 1 pill by mouth twice daily, for constipation DOCUSATE SODIUM 28464617385 No Longer Active Mima Kacey [place] Active FLONASE ALLERGY RELIEF 50 MCG/ACT NASAL SUSP One spray each nostril BID x 1 week then daily FLUTICASONE PROPIONATE 48445829854 Active Mima Erazo APRN Active BD PEN NEEDLE MINI U/F 31G X 5 MM MISC 4 a day INSULIN PEN NEEDLE 72295696846 Active Marvel Bertrandari [employer] Active AMITIZA 24 MCG ORAL CAPS Take one capsule BID for constipation LUBIPROSTONE 09770518420 Active Mima Erazo ASSEMBLY SUPERVISOR Active TRUEPLUS LANCETS 30G MISC 3 a day LANCETS 49028129882 Active Marvel 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 [employer] Active TOLTERODINE TARTRATE 2 MG TABS 1 pill twice daily, for bladder TOLTERODINE TARTRATE 74480875662 No Longer Active Vanessa Hickey MD Active AMITIZA 24 MCG ORAL CAPS Take one capsule BID for constipation. LUBIPROSTONE 93737907650 No Longer Active Vanessa Hickey MD Active FLUVOXAMINE MALEATE 100 MG ORAL TABS take one tab every AM et HS, and take 1/ 2 tab at noon FLUVOXAMINE MALEATE 29075649624 Active Grace Azam RMA Active METOPROLOL SUCCINATE 100 MG [id number] 1 by mouth daily for blood pressure METOPROLOL SUCCINATE 81459796715 No Longer Active Grace Azam RMA Active METFORMIN HCL ER 500 MG KG67B-CBD Take three tablets by mouth everyday METFORMIN HCL 50190707847 No Longer Active Grace Azam RMA Active LOVAZA 1 GM CAPS 4 daily (for triglycerides) OMEGA-3- ACID ETHYL ESTERS 72267254061 No Longer Active Grace Azam RMA Active TRAZODONE HCL 100 MG ORAL TABS 1 tab by mouth for sleep TRAZODONE HCL 58737899687 No Longer Active Grace Azam RMA Active NOVOFINE 32G X 6 MM MISC use one four times per day INSULIN PEN NEEDLE 93871952345 No Longer Active Grace Azam RMA Active BACTROBAN 2 % CREAM Apply to affected area BID for up to 10 days MUPIROCIN CALCIUM 66482091667 No Longer Active Grace Nelsonb RMA Active KEFLEX 500 MG CAP 1 po BID x 7 days CEPHALEXIN 15132147935 No Longer Active Cherelle Speaks ASSEMBLY SUPERVISOR Active FLUVOXAMINE MALEATE 100 MG TABS Take one (1) tablet by mouth am, 1/2 at noon FLUVOXAMINE MALEATE 31128885900 No Longer Active Mima Erazo ASSEMBLY SUPERVISOR Active CORICIDIN HBP CONGESTION/COUGH 10-200 MG ORAL CAPS Take as directed on box as needed for cold/flu symptoms DEXTROMETHORPHAN-GUAIFENESIN 53508595550 Active Cherelle Speaks ASSEMBLY SUPERVISOR Active OMEGA-3 300 MG ORAL CAPS 4 caps by mouth daily OMEGA-3 FATTY ACIDS 15041568148 Active Mima Erazo ASSEMBLY SUPERVISOR Active FLUVOXAMINE MALEATE 100 MG ORAL TABS Take 1/2 tab at noon FLUVOXAMINE MALEATE 74398011866 No Longer Active Cherelle Austin ASSEMBLY SUPERVISOR Active [facility] LUBRICANT EYE DROPS 0.4-0.3 % OPHTH SOLN POLYETHYL GLYCOL-PROPYL GLYCOL 55455781192 Active Mima Erazo ASSEMBLY SUPERVISOR Active MIRALAX POWD 17g by mouth daily, for constipation POLYETHYLENE GLYCOL 3350 09243122905 Active Alina Castaneda MD PhD Active TRUETEST TEST STRP check blood sugars 3x/day GLUCOSE BLOOD 86925594825 Active Maliheh Ziglari [employer]ER Active ACCU-CHEK ROSA UZMA Use device to check blood sugars BLOOD GLUCOSE MONITORING SUPPL 14324677952 No Longer Active Maliheh Ziglari [employer] FEEDER Active ACCU-CHEK ROSA INVITR STRP use strips with device to check blood sugars 3 times daily GLUCOSE BLOOD 63024322124 No Longer Active Maliheh Ziglari [employer] FEEDER Active VERAPAMIL HCL ER 180 MG ORAL CR-TABS 1 pill by mouth twice daily, for migraine prevention VERAPAMIL HCL 09636580473 Active CRYSTAL Rodrigues Active CYCLOBENZAPRINE HCL 10 MG TABS 1 tablet by mouth three times daily, scheduled CYCLOBENZAPRINE HCL 11047288282 No Longer Active Alina Castaneda MD PhD Active HUMALOG 100 UNIT/ML SOLN Take 20 units with breakfast, 10u with lunch and suppetr. INSULIN LISPRO (HUMAN) 92565428024 No Longer Active Alina Castaneda MD PhD Active TRUETEST TEST STRP check sugars 4x/day GLUCOSE BLOOD 97924178794 No Longer Active Alina Castaneda MD PhD Active MORPHINE SULFATE 30 MG TABS 1 pill by mouth twice daily, for pain MORPHINE SULFATE 49635303948 No Longer Active Mason Loredo MD Active ACYCLOVIR 400 MG ORAL TABS 1 pill three times daily x 5 days, for cold sore outbreak ACYCLOVIR 40668977185 No Longer Active Alina Castaneda MD PhD Active PENICILLIN V POTASSIUM 500 MG TABS 1 pill by mouth three times daily PENICILLIN V POTASSIUM 70647387965 No Longer Active Alina Castaneda MD PhD Active UROXATRAL 10 MG LS59P-LTO Take 1 tablet by mouth daily ALFUZOSIN HCL 29313049461 No Longer Active Alina Castaneda MD PhD Active THIOTHIXENE 5 MG CAPS by mouth twice a day THIOTHIXENE 87467714357 No Longer Active Alina Castaneda MD PhD Active ZYPREXA 7.5 MG TABS 1 at HS OLANZAPINE 59352754239 No Longer Active Alina Castaneda MD PhD Active BD INSULIN SYRINGE 28G X 1/2" 1 ML MISC 1 four times per day INSULIN SYRINGE-NEEDLE U-100 93252956554 Active Marvel Mackenzieglestela [employer] Active DETROL LA 4 MG GS67K-YDK Take 1 tablet by mouth daily TOLTERODINE TARTRATE 00418354781 No Longer Active Alina Castaneda MD PhD Active TERESE CONTOUR TEST STRP monitor blood sugars 3x/day GLUCOSE BLOOD 58901706376 No Longer Active Alina Castaneda MD PhD Active EQL TRUETEST TEST STRP Test blood sugar TID GLUCOSE BLOOD 16697862490 No Longer Active Alina Castaneda MD PhD Active FLUTICASONE PROPIONATE 50 MCG/ACT SUSP 2 sprays each nostril qDay x 30 days FLUTICASONE PROPIONATE 01790493170 No Longer Active Alina Castaneda MD PhD Active IBUPROFEN 200 MG TABS 1 Q 6 hr. PRN IBUPROFEN 72634944727 No Longer Active Alina Castaneda MD PhD Active NIACIN ER 500 MG CR-TABS 4 qHS (for triglycerides) NIACIN 05182461364 No Longer Active Alina Castaneda MD PhD Active ALFUZOSIN HCL ER 10 MG [id number]-IHL 1 tablet daily ALFUZOSIN HCL 49022757316 Active CRYSTAL Rodrigues Active SAPHRIS 5 MG SUBL by mouth twice a day ASENAPINE MALEATE 48965495354 No Longer Active Maljohn Ziglestela MENDOZAP Active ACETAMINOPHEN 500 MG TABS 2 Q 6 hr. PRN ACETAMINOPHEN 58915337888 No Longer Active Mallashondaeh 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 [employer] FEEDER Active ORPHENADRINE CITRATE ER 100 MG YZ30L-ROO 1 every 12 hr. as needed ORPHENADRINE CITRATE 43360734260 No Longer Active Alina Castaneda MD PhD Active NIACIN CR 500 MG CR-TABS 2 qHS NIACIN 59899123626 No Longer Active Alina Castaneda MD PhD Active AMOXICILLIN 500 MG CAPS 2 po BID x 10 days AMOXICILLIN 08219094276 No Longer Active Alina Castaneda MD PhD Active HYDROCODONE-ACETAMINOPHEN 7.5-325 MG TABS 1 four times a day as needed for pain HYDROCODONE-ACETAMINOPHEN 70545395871 No Longer Active Alina Castaneda MD PhD Active DOXEPIN HCL 10 MG CAPS Take 1 tablet by mouth daily DOXEPIN HCL 76473722548 No Longer Active Salina Han [facility] Active NAVANE 10 MG CAPS 1/2 tablet twice a day THIOTHIXENE No Longer Active Salina Han A Active CYCLOBENZAPRINE HCL 10 MG TABS 1/2 tablet by mouth every 8 hours as needed for muscle spasms CYCLOBENZAPRINE HCL 16303788682 No Longer Active Alina Castaneda MD PhD Active BACTROBAN 2 % CREAM apply to ear and nose twice daily MUPIROCIN CALCIUM 67306206683 No Longer Active Alina Castaneda MD PhD Active HYDROCODONE-ACETAMINOPHEN 5-325 MG TABS take one tablet by mouth every four hours as needed for pain HYDROCODONE-ACETAMINOPHEN 27827291218 No Longer Active Alina Castaneda MD PhD Active ZYPREXA 5 MG TABS take one tablet by mouth every evening OLANZAPINE 99902893638 No Longer Active Alina Castaneda MD PhD Active ALBUTEROL SULFATE 0.083 % NEBU SOLN one vial per nebulizer TID and PRN cough/ soa ALBUTEROL SULFATE 91964902671 No Longer Active Alina Castaneda MD PhD Active GUAIFENESIN 600 MG [id number]-XGU 1 tablet by mouth twice daily if needed for cough GUAIFENESIN 94451859818 No Longer Active Marvel Charles [facility] Active AZITHROMYCIN 500 MG SOLR 1 po q day AZITHROMYCIN 22282125569 No Longer Active Alina Castaneda MD PhD Active PROMETHAZINE-CODEINE 6.25-10 MG/5ML SYRP 1 tsp po q 6 hours prn cough PROMETHAZINE-CODEINE 15606264784 No Longer Active Alina Castaneda MD PhD Active CEFDINIR 300 MG CAPS by mouth twice a day CEFDINIR 82036497733 No Longer Active Alina Castaneda MD PhD Active METFORMIN HCL 500 MG UQ90G-DET Take 3 tablets by mouth everyday METFORMIN HCL 73868764012 No Longer Active Alina Castaneda MD PhD Active LEVEMIR 100 UNIT/ML SOLN 90 units SQ qHS INSULIN DETEMIR 12078773433 No Longer Active Marvel MARROQUIN Active TOPROL XL 100 MG AS44F-HAN 1 @ HS METOPROLOL SUCCINATE 52015953921 No Longer Active Marvel MARROQUIN Active ALLOPURINOL 300 MG TABS Take one by mouth daily ALLOPURINOL 25260295276 Active Mimacecily Fierroum ASSEMBLY SUPERVISOR Active ZYPREXA 10 MG TABS Take one by mouth daily OLANZAPINE 12419391214 No Longer Active Alina Castaneda MD PhD Active NOVOLOG 100 UNIT/ML SOLN 40 units with every meal INSULIN ASPART 93080716750 No Longer Active Alina Castaneda MD PhD Active VERAPAMIL HCL CR 120 MG TAB CR 1 qPM VERAPAMIL HCL 56959565146 No Longer Active Salina ROJAS Active ZYPREXA 15 MG TABS Take 1 tablet by mouth daily OLANZAPINE 54840878036 No Longer Active Marvel MARROQUIN Active ALBUTEROL SULFATE (2.5 MG/3ML) 0.083% NEBU 1 neb tid and prn cough ALBUTEROL SULFATE 79030024442 No Longer Active Alina Castaneda MD PhD Active LANTUS 100 UNIT/ML SOLN 60 units sq q hs INSULIN GLARGINE 40654897560 No Longer Active CRYSTAL Suarez Active ALBUTEROL SULFATE (2.5 MG/3ML) 0.083% NEBU 1 neb tid and prn cough ALBUTEROL SULFATE (2.5 MG/3ML) 0.083% NEBU 455493 ALBUTEROL SULFATE Inactive ZYPREXA 15 MG TABS Take 1 tablet by mouth daily ZYPREXA 15 MG TABS 953738 OLANZAPINE Inactive VERAPAMIL HCL CR 120 MG TAB CR 1 qPM VERAPAMIL HCL CR 120 MG TAB CR VERAPAMIL HCL Inactive ZYPREXA 10 MG TABS Take one by mouth daily ZYPREXA 10 MG TABS 309894 OLANZAPINE Inactive TOPROL XL 100 MG [id number]-CIQ 1 @ HS TOPROL XL 100 MG ED07O-OEJ METOPROLOL SUCCINATE Inactive LEVEMIR 100 UNIT/ML SOLN 90 units SQ qHS LEVEMIR 100 UNIT/ML SOLN INSULIN DETEMIR Inactive PROMETHAZINE-CODEINE 6.25-10 MG/5ML SYRP 1 tsp po q 6 hours prn cough PROMETHAZINE-CODEINE 6.25-10 MG/5ML SYRP 482470 PROMETHAZINE- CODEINE Inactive GUAIFENESIN 600 MG MQ27L-DYN 1 tablet by mouth twice daily if needed for cough GUAIFENESIN 600 MG HF90L-UGQ GUAIFENESIN Inactive ALBUTEROL SULFATE 0.083 % NEBU SOLN one vial per nebulizer TID and PRN cough/ soa ALBUTEROL SULFATE 0.083 % NEBU SOLN 217107 ALBUTEROL SULFATE Inactive ZYPREXA 5 MG TABS take one tablet by mouth every evening ZYPREXA 5 MG TABS 684875 OLANZAPINE Inactive HYDROCODONE-ACETAMINOPHEN 5-325 MG TABS take one tablet by mouth every four hours as needed for pain HYDROCODONE-ACETAMINOPHEN 5-325 MG TABS 891910 HYDROCODONE-ACETAMINOPHEN Inactive BACTROBAN 2 % CREAM apply to ear and nose twice daily BACTROBAN 2 % CREAM 695007 MUPIROCIN CALCIUM Inactive CYCLOBENZAPRINE HCL 10 MG TABS 1/2 tablet by mouth every 8 hours as needed for muscle spasms CYCLOBENZAPRINE HCL 10 MG TABS 014923 CYCLOBENZAPRINE HCL Inactive NAVANE 10 MG CAPS 1/2 tablet twice a day NAVANE 10 MG CAPS THIOTHIXENE Inactive DOXEPIN HCL 10 MG CAPS Take 1 tablet by mouth daily DOXEPIN HCL 10 MG CAPS 2455480 DOXEPIN HCL Inactive HYDROCODONE-ACETAMINOPHEN 7.5-325 MG TABS 1 four times a day as needed for pain HYDROCODONE-ACETAMINOPHEN 7.5-325 MG TABS 033034 HYDROCODONE-ACETAMINOPHEN Inactive NIACIN CR 500 MG CR-TABS 2 qHS NIACIN CR 500 MG CR- TABS NIACIN Inactive ORPHENADRINE CITRATE ER 100 MG [id number] 1 every 12 hr. as needed ORPHENADRINE CITRATE ER 100 MG MS39T-LCS ORPHENADRINE CITRATE Inactive ACETAMINOPHEN 500 MG TABS 2 Q 6 hr. PRN ACETAMINOPHEN 500 MG TABS 788294 ACETAMINOPHEN Inactive SAPHRIS 5 MG SUBL by mouth twice a day SAPHRIS 5 MG SUBL ASENAPINE MALEATE Inactive NIACIN ER 500 MG CR-TABS 4 qHS (for triglycerides) NIACIN ER 500 MG CR-TABS NIACIN Inactive IBUPROFEN 200 MG TABS 1 Q 6 hr. PRN IBUPROFEN 200 MG TABS 916105 IBUPROFEN Inactive FLUTICASONE PROPIONATE 50 MCG/ACT SUSP 2 sprays each nostril qDay x 30 days FLUTICASONE PROPIONATE 50 MCG/ACT SUSP 708141 FLUTICASONE PROPIONATE Inactive EQL TRUETEST TEST STRP Test blood sugar TID EQL TRUETEST TEST STRP GLUCOSE BLOOD Inactive TERESE CONTOUR TEST STRP monitor blood sugars 3x/day TERESE CONTOUR TEST STRP GLUCOSE BLOOD Inactive DETROL LA 4 MG BL99G-ZAY Take 1 tablet by mouth daily DETROL LA 4 MG XQ35C-FNE TOLTERODINE TARTRATE Inactive ZYPREXA 7.5 MG TABS 1 at HS ZYPREXA 7.5 MG TABS 161869 OLANZAPINE Inactive THIOTHIXENE 5 MG CAPS by mouth twice a day THIOTHIXENE 5 MG CAPS 663229 THIOTHIXENE Inactive UROXATRAL 10 MG YW49U-BPZ Take 1 tablet by mouth daily UROXATRAL 10 MG FO68J-OJF ALFUZOSIN HCL Inactive ACYCLOVIR 400 MG ORAL TABS 1 pill three times daily x 5 days, for cold sore outbreak ACYCLOVIR 400 MG ORAL TABS 504739 ACYCLOVIR Inactive TRUETEST TEST STRP check sugars 4x/day TRUETEST TEST STRP GLUCOSE BLOOD Inactive HUMALOG 100 UNIT/ML SOLN Take 20 units with breakfast, 10u with lunch and suppetr. HUMALOG 100 UNIT/ML SOLN INSULIN LISPRO ( HUMAN) Inactive CYCLOBENZAPRINE HCL 10 MG TABS 1 tablet by mouth three times daily, scheduled CYCLOBENZAPRINE HCL 10 MG TABS 374424 CYCLOBENZAPRINE HCL Inactive ACCU-CHEK ROSA INVITR STRP use strips with device to check blood sugars 3 times daily ACCU-CHEK ROSA INVITR STRP GLUCOSE BLOOD Inactive ACCU-CHEK ROSA UZMA Use device to check blood sugars ACCU-CHEK ROSA UZMA BLOOD GLUCOSE MONITORING SUPPL Inactive FLUVOXAMINE MALEATE 100 MG ORAL TABS Take 1/2 tab at noon FLUVOXAMINE MALEATE 100 MG ORAL TABS 341930 FLUVOXAMINE MALEATE Inactive FLUVOXAMINE MALEATE 100 MG TABS Take one (1) tablet by mouth am, 1/2 at noon FLUVOXAMINE MALEATE 100 MG TABS 130202 FLUVOXAMINE MALEATE Inactive BACTROBAN 2 % CREAM Apply to affected area BID for up to 10 days BACTROBAN 2 % CREAM 937068 MUPIROCIN CALCIUM Inactive NOVOFINE 32G X 6 MM MISC use one four times per day NOVOFINE 32G X 6 MM MISC INSULIN PEN NEEDLE Inactive TRAZODONE HCL 100 MG ORAL TABS 1 tab by mouth for sleep TRAZODONE HCL 100 MG ORAL TABS 794703 TRAZODONE HCL Inactive LOVAZA 1 GM CAPS 4 daily (for triglycerides) LOVAZA 1 GM CAPS 839173 RGESM-2-LCKC ETHYL ESTERS Inactive METFORMIN HCL ER 500 MG EY11S-DLC Take three tablets by mouth everyday METFORMIN HCL ER 500 MG BV58E-EWY METFORMIN HCL Inactive METOPROLOL SUCCINATE 100 MG QS86Y-ENN 1 by mouth daily for blood pressure METOPROLOL SUCCINATE 100 MG XR12E-BTU METOPROLOL SUCCINATE Inactive AMITIZA 24 MCG ORAL CAPS Take one capsule BID for constipation. AMITIZA 24 MCG ORAL CAPS LUBIPROSTONE Inactive TOLTERODINE TARTRATE 2 MG TABS 1 pill twice daily, for bladder TOLTERODINE TARTRATE 2 MG TABS 753496 TOLTERODINE TARTRATE Inactive COLACE 100 MG CAPS 1 pill by mouth twice daily, for constipation COLACE 100 MG CAPS 6872412 DOCUSATE SODIUM Inactive LOMOTIL 2.5-0.025 MG ORAL TABS take 1-2 tabs PO after each stool, no more than 8 in 24 hours LOMOTIL 2.5-0.025 MG ORAL TABS 4382265 DIPHENOXYLATE-ATROPINE Inactive ZOFRAN 4 MG TABS 1 po q4hr PRN Nausea ZOFRAN 4 MG TABS 513554 ONDANSETRON HCL Inactive HYDROCODONE-ACETAMINOPHEN 5-325 MG TABS 2 tabs by mouth three times daily for pain HYDROCODONE-ACETAMINOPHEN 5-325 MG TABS 975128 HYDROCODONE-ACETAMINOPHEN Inactive ZOLPIDEM TARTRATE 10 MG TABS take at bedtime ZOLPIDEM TARTRATE 10 MG TABS 530857 ZOLPIDEM TARTRATE Inactive LISINOPRIL 20 MG TABS 1 BID LISINOPRIL 20 MG TABS 478161 LISINOPRIL Inactive TRAVATAN Z 0.004 % SOLN 1 gtt each eye daily TRAVATAN Z 0.004 % SOLN TRAVOPROST Inactive LATUDA 60 MG ORAL TABS Take one by mouth daily LATUDA 60 MG ORAL TABS LURASIDONE HCL Inactive CEFDINIR 300 MG CAPS by mouth twice a day CEFDINIR 300 MG CAPS 938115 CEFDINIR Inactive AZITHROMYCIN 500 MG SOLR 1 po q day AZITHROMYCIN 500 MG SOLR 14882832661 AZITHROMYCIN Inactive AMOXICILLIN 500 MG CAPS 2 po BID x 10 days AMOXICILLIN 500 MG CAPS 942625 AMOXICILLIN Inactive PENICILLIN V POTASSIUM 500 MG TABS 1 pill by mouth three times daily PENICILLIN V POTASSIUM 500 MG TABS 014977 PENICILLIN V POTASSIUM Inactive KEFLEX 500 MG CAP 1 po BID x 7 days KEFLEX 500 MG CAP 984660 CEPHALEXIN Inactive Immunizations Vaccine Administration Date Value [...] Fluvirin, Fluarix, Agriflu(>=18 yo)) Fluzone (>3 yrs.) [PQS811] Influenza, seasonal, injectable pneumococcal immunization administered Pneumovax 23 [CVX33] pneumococcal polysaccharide vaccine, 23 valent Vital Signs Date Name Value Unit Range Description blood pressure, diastolic - 8462-4 80 mm[Hg] [...] Panel - Chemistry sodium, serum 137 mmol/L 629-167 4098/10/12 potassium, serum 4.8 mmol/L 3.5-5.2 chloride, serum 102 mmol/L 98-107 carbon dioxide, venous blood 27.6 mmol/L 21.0-32.0 blood glucose 168 mg/dL 65-110 calcium, serum 9.0 mg/dL 8.5-10.1 urea nitrogen, blood 15 mg/dL 7-18 creatinine, serum 1.04 mg/dL 0.55-1.30 sodium, serum 138 mmol/L 001-691 4516/11/11 potassium, serum 4.7 mmol/L 3.5-5.2 chloride, serum [...] % 11.6-14.8 platelet count 252 10^3/MM^3 10*3/mm3 305-441 1854/10/12 leukocyte count, blood 5.8 10^3/MM^3 10*3/mm3 4.6-10.2 [...] count 240 10^3/MM^3 10*3/mm3 142-424 Lab Report: HGBA1C - Chemistry hemoglobin A1C, blood, as % of total hemoglobin 6.1 % 4.3-6.0 hemoglobin A1C, blood, as % of total hemoglobin 6.3 % 4.3-6.0 hemoglobin A1C, blood, as % of total hemoglobin 6.1 % 4.3-6.0 Lab Report: Lipid Panel, HEPATIC PANEL, Uric Acid - Chemistry cholesterol, serum 187 mg/dL 787-045 0744/06/14 triglyceride, serum, fasting 246 mg/dL 30-200 HDL [...] strip Trace Negative bilirubin, urine Negative Negative urobilinogen, urine, semiquantitative (dipstick) 1.0 Normal leukocyte esterase, urine, by dipstick Negative Negative nitrite, urine, semiquantitative Negative Negative pH, urine, semiquantitative 5.5 5.0-8.5 specific gravity, urine 1.020 1.000-1.030 appearance, urine Clear Clear urine color Yellow Colorless;Lightyellow;Straw;Yellow Office Visit: 1 month follow up retention [...] urine, semiquantitative 5 specific gravity, urine 1.010 protein, urine, semiquantitative (dipstick) negative urine color yellow appearance, urine clear leukocyte esterase, urine, by dipstick negative nitrite, urine, semiquantitative negative urobilinogen, urine, semiquantitative (dipstick) negative Encounters Code Encounter Date Provider Facility CPT-54590 Level 3 Est. Patient 17:40:16 CDT Mima Erazo [facility][note 3] CPT-31342 Level 3 Est. Patient 14:34:52 CDT Vanessa Hickey MD [facility] CPT-40701 Level 3 Est. Patient 16:27:51 CDT Mima Erazo [facility] CPT-57670 Level 3 Est. Patient 14:39:00 SMALL BUSINESS DIRECTOR Vanessa Hickey MD [facility] CPT-78295 Level 2 Est. Patient 18:43:34 CDT Mima Erazo [facility] CPT-83112 Level 3 Est. Patient 16:22:09 CDT Cherelle [place] [facility] CPT-92228 Level 4 Est. Patient 17:55:14 CDT Mima Erazo [facility] CPT-02319 Level 2 Est. Patient 17:13:21 CDT Alina Castaneda MD [facility]-33216 Level 3 Est. Patient 14:46:15 CDT Vanessa Hickey MD [facility]-60943 Level 3 Est. Patient 09:34:56 CDT Alina Castaneda MD [facility]-95874 Level 3 Est. Patient 21:40:19 CDT Mima Erazo [place] [facility]-55004 Level 3 Est. Patient 09:26:40 CDT Marvel [facility] [place]-41590 Level 3 Est. Patient 12:36:43 CDT Vanessa Hickey MD [facility]-72294 Level 3 Est. Patient 12:57:49 CDT Vanessa Hickey MD [facility]-60899 Level 3 Est. Patient 00:28:25 CDT Alina Castaneda MD [facility]-49056 Level 2 Est. Patient 12:52:14 CDT Alina Castaneda [facility]58363 Level 3 Est. Patient 11:51:18 SMALL BUSINESS DIRECTOR Alina Castaneda MD [facility]-50192 Level 3 Est. Patient 10:09:22 SMALL BUSINESS DIRECTOR Alina Castaneda MD [facility]-73560 Level 3 Est. Patient 14:36:26 SMALL BUSINESS DIRECTOR Marvel Charles [facility]-21842 Level 3 Est. Patient 13:34:47 SMALL BUSINESS DIRECTOR Alina Castaneda MD [facility] [place]60448 Level 3 Est. Patient 19:52:08 SMALL BUSINESS DIRECTOR Alina Castaneda MD [facility]-45553 Level 3 Est. Patient 10:01:51 SMALL BUSINESS DIRECTOR Marvel [facility]-40178 Level 3 Est. Patient 21:54:06 CDT Vanessa Hickey MD [facility]-56814 Level 3 Est. Patient 08:54:46 CDT Alina Castaneda MD [facility]-51280 Level 3 Est. Patient 09:32:11 CDT Marvel [facility]-45918 Level 3 Est. Patient 12:02:49 CDT Alina Castaneda MD PhD [facility]-52094 Level 3 Est. Patient 19:17:33 CDT Alina Castaneda MD [facility]-44951 Level 3 Est. Patient 13:19:10 CDT Marvel [facility]-80618 Level 3 Est. Patient 08:20:05 CDT Alina Castaneda MD [facility]-38090 Level 3 Est. Patient 15:17:18 CDT Alina Castaneda MD [facility]-26705 Level 3 Est. Patient 14:25:36 SMALL BUSINESS DIRECTOR Marvel Charles [facility] CPT-47041 Level 3 Est. Patient 10:09:15 SMALL BUSINESS DIRECTOR Marvel [facility]-59240 Level 3 Est. Patient 21:28:43 CDT Alina Castaneda MD PhD [facility]-13808 Level 3 Est. Patient 15:20:11 CDT Marvel [facility]-53133 Level 4 Est. Patient 19:08:12 CDT Alina Castaneda MD [facility]-14980 Level 3 Est. Patient 15:06:39 CDT Marvel Charles [facility] CPT-15091 Level 4 Est. Patient 17:48:15 CDT Alina Castaneda MD [facility] CPT-18759 Level 3 Est. Patient 14:53:49 CDT Alina Castaneda MD [facility]-14456 Level 3 Est. Patient 09:35:16 CDT Alina Castaneda MD [facility]-37856 Level 3 Est. Patient 12:23:22 CDT Alina Castaneda MD [facility]-41245 Level 3 Est. Patient 16:19:15 CDT Alina Castaneda MD [facility]-04634 Level 3 Est. Patient 21:39:56 SMALL BUSINESS DIRECTOR Alina Castaneda MD [facility]-76792 Level 4 Est. Patient 14:12:56 SMALL BUSINESS DIRECTOR Alina Castaneda MD [facility]-80526 Level 2 Est. Patient 15:34:57 SMALL BUSINESS DIRECTOR Alina Castaneda MD [facility]-62816 Level 3 Est. Patient 12:17:04 SMALL BUSINESS DIRECTOR Alina Castaneda MD [facility] CPT-64558 Level 3 Est. Patient 09:18:18 SMALL BUSINESS DIRECTOR Marvel [facility]-56922 Level 2 Est. Patient 21:50:24 CDT Alina Castaneda MD [facility]-65292 Level 3 Est. Patient 09:17:28 CDT Marvel Charles [facility]-42848 Level 4 Est. Patient 18:54:02 CDT Alina Castaneda MD [facility]-96983 Level 3 Est. Patient 10:47:10 CDT Alina Castaneda MD [facility] CPT-98625 Level 3 Est. Patient 09:22:20 CDT Marvel Charles [facility] CPT-25164 Level 3 Est. Patient 16:39:43 [facility] Level 3 Est. Patient 16:05:16 CDT Alina Castaneda MD [facility] CPT-52467 Level 3 Est. Patient 00:29:15 CDT Alina Castaneda MD [facility]-26286 Level 3 Est. Patient 10:49:22 SMALL BUSINESS DIRECTOR [facility] CPT-80996 Level 3 Est. Patient 21:30:19 SMALL BUSINESS DIRECTOR Alina Castaneda MD PhD [facility] CPT-91933 Level 4 Est. Patient 17:04:11 SMALL BUSINESS DIRECTOR [facility]63045 Level 3 Est. Patient 15:34:11 SMALL BUSINESS DIRECTOR [facility]-83190 Level 2 Est. Patient 12:51:58 SMALL BUSINESS DIRECTOR Alina Castaneda MD PhD [facility] CPT-57952 Level 3 Est. Patient 13:20:01 SMALL BUSINESS DIRECTOR Alina Castaneda MD PhD [facility] CPT-52656 Level 3 Est. Patient 09:23:35 CDT Alina Castaneda MD PhD [facility] Procedures Code Procedure Name Date Entry Date Standard Description CPT-TCMM Transitional Care Mgmt-Moderate 10:25:31 CDT CPT-09743 Bladder Scan 14:34:53 CDT CPT-46702 Bladder Scan 14:39:01 SMALL BUSINESS DIRECTOR CPT-TCMM Transitional Care Mgmt-Moderate 10:30:19 SMALL BUSINESS DIRECTOR CPT-82690 Bladder Scan 12:36:44 CDT CPT-39835 Bladder Scan 21:54:06 CDT CPT-G0008 Administration of Influenza Virus Vaccine 13:05:26 CDT CPT-14952 Fluzone Quadrivalent Intramuscular Suspension 0.5 ML 13: 05:26 CDT CPT-32500 Administration single or combination vaccine inc oral 11 :49:51 CDT CPT-59704 Pneumovax 11:49:51 CDT CPT-23726 Ribs unilateral 2V 12:37:22 SMALL BUSINESS DIRECTOR CPT-71503 Chest 2V Frontal and Lat 17:15:26 CDT CPT-10868 Abx/Therapy Injection 18:54:02 CDT CPT-J0696 Rocephin 1000 mg (Ceftriaxone) 16:00:32 CDT CPT-29638 Chest 2V Frontal and Lat 15:26:45 CDT CPT-96592 Chest 2V Frontal and Lat 10:23:27 CDT CPT-93350 Venipuncture Draw Fee 10:11:00 CDT CPT-99789 Administration single or combination vaccine inc oral 11 :56:38 CDT CPT-23521 Influenza split virus > age 3 11:56:38 CDT CPT-27729 Venipuncture Draw Fee 08:49:54 SMALL BUSINESS DIRECTOR CPT-06577 EKG Trac and Interp 17:54:19 SMALL BUSINESS DIRECTOR
--- OUTSIDE RECORDS SUMMARY | 2018-07-02 14:09 | XMS REPORT | Clinical Summary ---
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 Active Alina Castaneda MD PhD Recurrent isolated sleep paralysis SPECIAL SCREENING FOR MALIGNANT NEOPLASM OF PROSTATE V76.44 Resolved Alina Castaneda MD PhD Screening for malignant neoplasms of prostate Hypoglycemia 251.2 Resolved Alina Castaneda MD PhD Hypoglycemia, unspecified Diabetes mellitus, type II 250.00 Active Mallashondaeh Bertrandari PARTS INSPECTOR Diabetes mellitus without mention of complication, [...] STRP check blood sugars 3x/day GLUCOSE BLOOD 66980325029 Active Malihnivia Ziglari PARTS INSPECTOR Active ACCU-CHEK ROSA UZMA Use device to check blood sugars BLOOD GLUCOSE MONITORING SUPPL 02877491881 No Longer Active Mallashondaeh Ziglari PARTS INSPECTOR Active ACCU-CHEK ROSA INVITR STRP use strips with device to check blood sugars 3 times daily GLUCOSE BLOOD 33855012779 No Longer Active Mallashondaeh 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 PARTS INSPECTOR Active VERAPAMIL HCL ER 180 MG ORAL CR-TABS 1 pill by mouth twice daily, for migraine prevention VERAPAMIL HCL 81820359893 Active Alina Castaneda MD PhD Active CYCLOBENZAPRINE HCL 10 MG TABS 1 tablet by mouth three times daily, scheduled CYCLOBENZAPRINE HCL 38262905415 No Longer Active Alina Castaneda MD PhD Active HUMALOG 100 UNIT/ML SOLN Take 20 units with breakfast, 10u with lunch and suppetr. INSULIN LISPRO (HUMAN) 00465217326 No Longer Active Alina Castaneda MD PhD Active TRUETEST TEST STRP check sugars 4x/day GLUCOSE BLOOD 66331808380 No Longer Active Alina Castaneda MD PhD Active MORPHINE SULFATE 30 MG TABS 1 pill by mouth twice daily, for pain MORPHINE SULFATE 32049948439 Active Alina Castaneda MD PhD Active ACYCLOVIR 400 MG ORAL TABS 1 pill three times daily x 5 days, for cold sore outbreak ACYCLOVIR 83994177486 No Longer Active Alina Castaneda MD PhD Active PENICILLIN V POTASSIUM 500 MG TABS 1 pill by mouth three times daily PENICILLIN V POTASSIUM 79740028466 No Longer Active Alina Castaneda MD PhD Active LATUDA 80 MG TABS 1 tab by mouth every evening LURASIDONE HCL 88327948878 Active Alina Castaneda MD PhD Active UROXATRAL 10 MG [id number]-[id number] Take 1 tablet by mouth daily ALFUZOSIN HCL 30349252230 No Longer Active Alina Castaneda MD PhD Active THIOTHIXENE 5 MG CAPS by mouth twice a day THIOTHIXENE 28217247404 No Longer Active Alina Castaneda MD PhD Active ZYPREXA 7.5 MG TABS 1 at HS OLANZAPINE 74585266334 No Longer Active Alina Castaneda MD PhD Active LEVEMIR 100 UNIT/ML SOLN Take 70 u at 7-8pm INSULIN DETEMIR 95666193708 Active Maliheh Ziglari PARTS INSPECTOR Active BD INSULIN SYRINGE 28G X 1/2" 1 ML MISC 1 four times per day INSULIN SYRINGE-NEEDLE U-100 84569067074 Active Mallashondaeh Ziglari PARTS INSPECTOR Active TOLTERODINE TARTRATE 2 MG TABS 1 pill twice daily, for bladder TOLTERODINE TARTRATE 53494791585 Active Alina Castaneda MD PhD Active DETROL LA 4 MG [id number]-FUM Take 1 tablet by mouth daily TOLTERODINE TARTRATE 78525703899 No Longer Active Alina Castaenda MD PhD Active HYDROCODONE-ACETAMINOPHEN 5-325 MG TABS 2 tabs by mouth three times daily as needed for pain HYDROCODONE-ACETAMINOPHEN 08953448394 Active Alina Castaneda MD PhD Active TERESE CONTOUR TEST STRP monitor blood sugars 3x/day GLUCOSE BLOOD 57894392832 No Longer Active Alina Castaneda MD PhD Active EQL TRUETEST TEST STRP Test blood sugar TID GLUCOSE BLOOD 67218115066 No Longer Active Alina Castaneda MD PhD Active FLUTICASONE PROPIONATE 50 MCG/ACT SUSP 2 sprays each nostril qDay x 30 days FLUTICASONE PROPIONATE 26815351473 No Longer Active Alina Castaneda MD PhD Active IBUPROFEN 200 MG TABS 1 Q 6 hr. PRN IBUPROFEN 44578889386 No Longer Active Alina Castaneda MD PhD Active NIACIN ER 500 MG CR-TABS 4 qHS (for triglycerides) NIACIN 05971304266 No Longer Active Alina Castaneda MD PhD Active ALFUZOSIN HCL ER 10 MG [id number] 1 tablet daily ALFUZOSIN HCL 10843389918 Active Vanessa Hickey MD Active CLONAZEPAM 1 MG TABS 1 pill by mouth three times daily CLONAZEPAM 86024060331 Active Alina Castaneda MD PhD Active LOVAZA 1 GM CAPS 4 daily (for triglycerides) [id number] ETHYL ESTERS 45906161418 Active Alina Castaneda MD PhD Active SAPHRIS 5 MG SUBL by mouth twice a day ASENAPINE MALEATE 68305543344 No Longer Active Maliheh Ziglari PARTS INSPECTOR Active ACETAMINOPHEN 500 MG TABS 2 Q 6 hr. PRN ACETAMINOPHEN 40154529738 No Longer Active Maliheh Ziglari PARTS INSPECTOR Active ORPHENADRINE CITRATE ER 100 MG [id number]-CVF 1 every 12 hr. as needed ORPHENADRINE CITRATE 33794003315 No Longer Active Alina Castaneda MD PhD Active NIACIN CR 500 MG CR-TABS 2 qHS NIACIN 45945799542 No Longer Active Alina Castaneda MD PhD Active AMOXICILLIN 500 MG CAPS 2 po BID x 10 days AMOXICILLIN 72969691863 No Longer Active Alina Castaneda MD PhD Active HYDROCODONE-ACETAMINOPHEN 7.5-325 MG TABS 1 four times a day as needed for pain HYDROCODONE-ACETAMINOPHEN 01478873895 No Longer Active Alina Castaneda MD PhD Active METFORMIN HCL ER 500 MG BR04H-GTB Take three tablets by mouth everyday METFORMIN HCL 13589252865 Active Marvel MARROQUIN Active DOXEPIN HCL 10 MG CAPS Take 1 tablet by mouth daily DOXEPIN HCL 78004245676 No Longer Active Salina Han A Active NAVANE 10 MG CAPS 1/2 tablet twice a day THIOTHIXENE No Longer Active Salina Han A Active CYCLOBENZAPRINE HCL 10 MG TABS 1/2 tablet by mouth every 8 hours as needed for muscle spasms CYCLOBENZAPRINE HCL 26113650200 No Longer Active Alina Castaneda MD PhD Active BACTROBAN 2 % CREAM apply to ear and nose twice daily MUPIROCIN CALCIUM 96205267061 No Longer Active Alina Castaneda MD PhD Active HYDROCODONE-ACETAMINOPHEN 5-325 MG TABS take one tablet by mouth every four hours as needed for pain HYDROCODONE-ACETAMINOPHEN 60119550543 No Longer Active Alina Castaneda MD PhD Active ZOLPIDEM TARTRATE 10 MG TABS take at bedtime ZOLPIDEM TARTRATE 68651477432 Active Alina Castaneda MD PhD Active ZYPREXA 5 MG TABS take one tablet by mouth every evening OLANZAPINE 94888334797 No Longer Active Alina Castaneda MD PhD Active ALBUTEROL SULFATE 0.083 % NEBU SOLN one vial per nebulizer TID and PRN cough/ soa ALBUTEROL SULFATE 21803269590 No Longer Active Alina Castaneda MD PhD Active GUAIFENESIN 600 MG VV75Q-TYT 1 tablet by mouth twice daily if needed for cough GUAIFENESIN 63516299501 No Longer Active Marvel MARROQUIN Active AZITHROMYCIN 500 MG SOLR 1 po q day AZITHROMYCIN 93522208076 No Longer Active Alina Castaneda MD PhD Active METOPROLOL SUCCINATE 100 MG EU53J-IVZ 1 by mouth daily for blood pressure METOPROLOL SUCCINATE 09367573921 Active Alina Castaneda MD PhD Active PROMETHAZINE-CODEINE 6.25-10 MG/5ML SYRP 1 tsp po q 6 hours prn cough PROMETHAZINE-CODEINE 54627092051 No Longer Active Alina Castaneda MD PhD Active CEFDINIR 300 MG CAPS by mouth twice a day CEFDINIR 66046057956 No Longer Active Alina Castaneda MD PhD Active METFORMIN HCL 500 MG NC43G-FVH Take 3 tablets by mouth everyday METFORMIN HCL 84052229106 No Longer Active Alina Castaneda MD PhD Active LEVEMIR 100 UNIT/ML SOLN 90 units SQ qHS INSULIN DETEMIR 71700789613 No Longer Active Marvel MARROQUIN Active TOPROL XL 100 MG [id number]-KEA 1 @ HS METOPROLOL SUCCINATE 67213713096 No Longer Active Marvel MARROQUIN Active ALLOPURINOL 300 MG TABS Take one by mouth daily ALLOPURINOL 08971053402 Active Alina Castaneda MD PhD Active ZYPREXA 10 MG TABS Take one by mouth daily OLANZAPINE 81326594568 No Longer Active Alina Castaneda MD PhD Active NOVOLOG 100 UNIT/ML SOLN 40 units with every meal INSULIN ASPART 36962210853 No Longer Active Alina Castaneda MD PhD Active VERAPAMIL HCL CR 120 MG TAB CR 1 qPM VERAPAMIL HCL 61628188586 No Longer Active Salina Han [facility] Active ZYPREXA 15 MG TABS Take 1 tablet by mouth daily OLANZAPINE 62346155068 No Longer Active Marvel MARROQUIN Active LISINOPRIL 20 MG TABS 1 BID LISINOPRIL 88576631664 Active Alina Castaneda MD PhD Active ALBUTEROL SULFATE (2.5 MG/3ML) 0.083% NEBU 1 neb tid and prn cough ALBUTEROL SULFATE 02389705802 No Longer Active Alina Castaneda MD PhD Active FLUVOXAMINE MALEATE 100 MG TABS Take one (1) tablet by mouth am, 1/2 at noon, 1 pm FLUVOXAMINE MALEATE 86337809242 Active Alina Castaneda MD PhD Active TRAVATAN Z 0.004 % SOLN 1 gtt each eye daily TRAVOPROST 62169545664 Active CRYSATL Suarez Active LANTUS 100 UNIT/ML SOLN 60 units sq q hs INSULIN GLARGINE 75543950475 No Longer Active CRYSTAL Suarez Active ALBUTEROL SULFATE (2.5 MG/3ML) 0.083% NEBU 1 neb tid and prn cough ALBUTEROL SULFATE (2.5 MG/3ML) 0.083% NEBU 238861 ALBUTEROL SULFATE Inactive ZYPREXA 15 MG TABS Take 1 tablet by mouth daily ZYPREXA 15 MG TABS 103015 OLANZAPINE Inactive VERAPAMIL HCL CR 120 MG TAB CR 1 qPM VERAPAMIL HCL CR 120 MG TAB CR VERAPAMIL HCL Inactive ZYPREXA 10 MG TABS Take one by mouth daily ZYPREXA 10 MG TABS 881325 OLANZAPINE Inactive TOPROL XL 100 MG [id number]-GUW 1 @ HS TOPROL XL 100 MG HM57I-MGD METOPROLOL SUCCINATE Inactive LEVEMIR 100 UNIT/ML SOLN 90 units SQ qHS LEVEMIR 100 UNIT/ML SOLN INSULIN DETEMIR Inactive PROMETHAZINE-CODEINE 6.25-10 MG/5ML SYRP 1 tsp po q 6 hours prn cough PROMETHAZINE-CODEINE 6.25-10 MG/5ML SYRP 869402 PROMETHAZINE- CODEINE Inactive GUAIFENESIN 600 MG QV66H-XBO 1 tablet by mouth twice daily if needed for cough GUAIFENESIN 600 MG CZ93J-BJK GUAIFENESIN Inactive ALBUTEROL SULFATE 0.083 % NEBU SOLN one vial per nebulizer TID and PRN cough/ soa ALBUTEROL SULFATE 0.083 % NEBU SOLN 707369 ALBUTEROL SULFATE Inactive ZYPREXA 5 MG TABS take one tablet by mouth every evening ZYPREXA 5 MG TABS 182217 OLANZAPINE Inactive HYDROCODONE-ACETAMINOPHEN 5-325 MG TABS take one tablet by mouth every four hours as needed for pain HYDROCODONE-ACETAMINOPHEN 5-325 MG TABS 546312 HYDROCODONE-ACETAMINOPHEN Inactive BACTROBAN 2 % CREAM apply to ear and nose twice daily BACTROBAN 2 % CREAM 498163 MUPIROCIN CALCIUM Inactive CYCLOBENZAPRINE HCL 10 MG TABS 1/2 tablet by mouth every 8 hours as needed for muscle spasms CYCLOBENZAPRINE HCL 10 MG TABS 827633 CYCLOBENZAPRINE HCL Inactive NAVANE 10 MG CAPS 1/2 tablet twice a day NAVANE 10 MG CAPS THIOTHIXENE Inactive DOXEPIN HCL 10 MG CAPS Take 1 tablet by mouth daily DOXEPIN HCL 10 MG CAPS 1209639 DOXEPIN HCL Inactive HYDROCODONE-ACETAMINOPHEN 7.5-325 MG TABS 1 four times a day as needed for pain HYDROCODONE-ACETAMINOPHEN 7.5-325 MG TABS 899654 HYDROCODONE-ACETAMINOPHEN Inactive NIACIN CR 500 MG CR-TABS 2 qHS NIACIN CR 500 MG CR- TABS NIACIN Inactive ORPHENADRINE CITRATE ER 100 MG [id number]-VAX 1 every 12 hr. as needed ORPHENADRINE CITRATE ER 100 MG UR01X-JIP ORPHENADRINE CITRATE Inactive ACETAMINOPHEN 500 MG TABS 2 Q 6 hr. PRN ACETAMINOPHEN 500 MG TABS 341245 ACETAMINOPHEN Inactive SAPHRIS 5 MG SUBL by mouth twice a day SAPHRIS 5 MG SUBL ASENAPINE MALEATE Inactive NIACIN ER 500 MG CR-TABS 4 qHS (for triglycerides) NIACIN ER 500 MG CR-TABS NIACIN Inactive IBUPROFEN 200 MG TABS 1 Q 6 hr. PRN IBUPROFEN 200 MG TABS 402228 IBUPROFEN Inactive FLUTICASONE PROPIONATE 50 MCG/ACT SUSP 2 sprays each nostril qDay x 30 days FLUTICASONE PROPIONATE 50 MCG/ACT SUSP 117327 FLUTICASONE PROPIONATE Inactive EQL TRUETEST TEST STRP Test blood sugar TID EQL TRUETEST TEST STRP GLUCOSE BLOOD Inactive TERESE CONTOUR TEST STRP monitor blood sugars 3x/day TERESE CONTOUR TEST STRP GLUCOSE BLOOD Inactive DETROL LA 4 MG [id number]-QCW Take 1 tablet by mouth daily DETROL LA 4 MG HN32P-KNQ TOLTERODINE TARTRATE Inactive ZYPREXA 7.5 MG TABS 1 at HS ZYPREXA 7.5 MG TABS 015138 OLANZAPINE Inactive THIOTHIXENE 5 MG CAPS by mouth twice a day THIOTHIXENE 5 MG CAPS 410702 THIOTHIXENE Inactive UROXATRAL 10 MG CC93Z-ZGS Take 1 tablet by mouth daily UROXATRAL 10 MG BR75A-DKD ALFUZOSIN HCL Inactive ACYCLOVIR 400 MG ORAL TABS 1 pill three times daily x 5 days, for cold sore outbreak ACYCLOVIR 400 MG ORAL TABS 604971 ACYCLOVIR Inactive TRUETEST TEST STRP check sugars 4x/day TRUETEST TEST STRP GLUCOSE BLOOD Inactive HUMALOG 100 UNIT/ML SOLN Take 20 units with breakfast, 10u with lunch and suppetr. HUMALOG 100 UNIT/ML SOLN INSULIN LISPRO ( HUMAN) Inactive CYCLOBENZAPRINE HCL 10 MG TABS 1 tablet by mouth three times daily, scheduled CYCLOBENZAPRINE HCL 10 MG TABS 473639 CYCLOBENZAPRINE HCL Inactive ACCU-CHEK ROSA INVITR STRP use strips with device to check blood sugars 3 times daily ACCU-CHEK ROSA INVITR STRP GLUCOSE BLOOD Inactive ACCU-CHEK ROSA UZMA Use device to check blood sugars ACCU-CHEK ROSA UZMA BLOOD GLUCOSE MONITORING SUPPL Inactive CEFDINIR 300 MG CAPS by mouth twice a day CEFDINIR 300 MG CAPS 672491 CEFDINIR Inactive AZITHROMYCIN 500 MG SOLR 1 po q day AZITHROMYCIN 500 MG SOLR 358087 AZITHROMYCIN Inactive AMOXICILLIN 500 MG CAPS 2 po BID x 10 days AMOXICILLIN 500 MG CAPS 192078 AMOXICILLIN Inactive PENICILLIN V POTASSIUM 500 MG TABS 1 pill by mouth three times daily PENICILLIN V POTASSIUM 500 MG TABS 431606 PENICILLIN V POTASSIUM Inactive Immunizations Vaccine Administration [...] Fluvirin, Fluarix, Agriflu(>=18 yo)) Fluzone (>3 yrs.) [[id number]] Influenza, seasonal, injectable pneumococcal immunization administered Pneumovax [...] E&M - 3141-9 251 [lb_av] Weight Measured blood pressure, diastolic - 8462-4 82 mm[Hg] BP garcia blood pressure, systolic - 8480-6 146 mm[Hg] BP sys height E&M - 8302-2 70 [in_us] Bdy height pulse rate E&M - 8867-4 106 /min Heart rate temperature E&M 98.2 [degF] Body temperature weight E&M - 3141-9 250 [lb_av] Weight Measured Diagnostic Results Date Name Value Unit Range Description Lab Report: Basic Metabolic Panel, HGBA1C - Chemistry sodium, serum 130 mmol/L 729-067 6076/06/09 potassium, serum 4.0 mmol/L 3.5-5.2 chloride, serum 92 mmol/L 98-107 carbon dioxide, venous blood 22.1 mmol/L 21.0-32.0 blood glucose 60 mg/dL 65-110 calcium, serum 9.5 mg/dL 8.5-10.1 urea nitrogen, blood 14 mg/dL 7-18 creatinine, serum 1.30 mg/dL 0.60-1.30 hemoglobin A1C, blood, as % of total hemoglobin 6.0 % 4.3-6.0 sodium, serum 131 mmol/L 475-719 2582/12/30 potassium, serum 5.0 mmol/L 3.5-5.2 chloride, serum [...] 6.0 mg/dL 2.6-7.2 sodium, serum 130 mmol/L 122-015 6199/05/01 potassium, serum 5.2 mmol/L 3.5-5.2 chloride, serum [...] 0.40 mg/dL 0.00-1.00 cholesterol, serum 151 mg/dL 668-408 8315/05/01 triglyceride, serum, fasting 356 mg/dL 30-200 HDL [...] % 11.6-14.8 platelet count 304 10^3/MM^3 10*3/mm3 001-394 9256/05/01 mean corpuscular volume, RBC 87 fL 80-97 hematocrit, blood 44.2 % 41.0-53.0 hemoglobin, blood 15.3 g/dL 13.5-17.5 erythrocyte (RBC) count 5.07 10^6/MM^3 10*6/mm3 4.69-6.13 leukocyte count, blood 7.8 10^3/MM^3 10*3/mm3 4.6-10.2 Lab Report: CBC, CMP, Lipid Panel, TSH, PSA, microalbumin, uric acid - Lab microalbumin, urine 10 0-19 Lab Report: Comp. Metabolic Panel - Chemistry sodium, serum 127 mmol/L 337-585 8785/10/27 potassium, serum 4.1 mmol/L 3.5-5.2 chloride, serum [...] mg/dL Encounters Code Encounter Date Provider Facility CPT-82288 Level 2 Est. Patient 12:52:14 CDT Alina Castaneda MD PhD [facility] CPT-80081 Level 3 Est. Patient 11:51:18 INDUSTRIAL HYGENIST Alina Castaneda MD PhD [facility] CPT-55025 Level 3 Est. Patient 10:09:22 INDUSTRIAL HYGENIST Alina Castaneda MD PhD [facility] CPT-55954 Level 3 Est. Patient 14:36:26 INDUSTRIAL HYGENIST [facility] Level 3 Est. Patient 13:34:47 KHALIF Castaneda MD PhD [facility] CPT-67586 Level 3 Est. Patient 19:52:08 INDUSTRIAL HYGENIST Alina Castaneda MD PhD [facility] CPT-84725 Level 3 Est. Patient 10:01:51 INDUSTRIAL HYGENIST Maliheh Ziglari [facility]-47549 Level 3 Est. Patient 21:54:06 CDT Vanessa Hickey MD [facility]-60420 Level 3 Est. Patient 08:54:46 CDT Alina Castaneda MD [facility]82775 Level 3 Est. Patient 09:32:11 CDT Brookslashondanivia Araceli [facility]-59945 Level 3 Est. Patient 12:02:49 CDT Alina Castaneda MD PhD [facility]41452 Level 3 Est. Patient 19:17:33 CDT Alina Castaneda MD [facility]64831 Level 3 Est. Patient 13:19:10 [facility]-07096 Level 3 Est. Patient 08:20:05 CDT Alina Castaneda MD [facility]-86723 Level 3 Est. Patient 15:17:18 CDT Alina Castaneda MD [facility]33095 Level 3 Est. Patient 14:25:36 INDUSTRIAL HYGENIST Marvel Araceli [facility]-97591 Level 3 Est. Patient 10:09:15 INDUSTRIAL HYGENIST Marvel Araceli [facility]-38641 Level 3 Est. Patient 21:28:43 CDT Alina Castaneda MD PhD [facility]-45494 Level 3 Est. Patient 15:20:11 CDT Marvel Charles [facility]-20709 Level 4 Est. Patient 19:08:12 CDT Alina Castaneda MD [facility]31051 Level 3 Est. Patient 15:06:39 [facility]-29936 Level 4 Est. Patient 17:48:15 CDT Alina Castaneda MD [facility]-71168 Level 3 Est. Patient 14:53:49 CDT Alina Castaneda MD [facility]-42000 Level 3 Est. Patient 09:35:16 CDT Alina Castaneda MD [facility]-58605 Level 3 Est. Patient 12:23:22 CDT Alina Castaneda MD [facility]-82369 Level 3 Est. Patient 16:19:15 CDT Alina Castaneda MD [facility]-13016 Level 3 Est. Patient 21:39:56 INDUSTRIAL HYGENIST Alina Castaneda MD [facility]-50718 Level 4 Est. Patient 14:12:56 INDUSTRIAL HYGENIST Alina Castaneda MD [facility]-31831 Level 2 Est. Patient 15:34:57 INDUSTRIAL HYGENIST Alina Castaneda MD [facility]-18746 Level 3 Est. Patient 12:17:04 INDUSTRIAL HYGENIST Alina Castaneda MD [facility]-07402 Level 3 Est. Patient 09:18:18 INDUSTRIAL HYGENIST Marvel Charles [facility]-23792 Level 2 Est. Patient 21:50:24 CDT Alina Castaneda MD [facility]-35220 Level 3 Est. Patient 09:17:28 CDT Marvel Charles [facility]-86739 Level 4 Est. Patient 18:54:02 CDT Alina Castaneda MD [facility]-29268 Level 3 Est. Patient 10:47:10 CDT Alina Castaneda MD [facility] CPT-58338 Level 3 Est. Patient 09:22:[address] [facility] CPT-19590 Level 3 Est. Patient 16:39:[address] [facility] CPT-47180 Level 3 Est. Patient 16:05:16 CDT Alina Castaneda MD [facility] CPT-95316 Level 3 Est. Patient 00:29:15 CDT Alina Castaneda MD [facility]-82856 Level 3 Est. Patient 10:49:22 INDUSTRIAL HYGENIST Marvel Charles [facility] CPT-73497 Level 3 Est. Patient 21:30:19 INDUSTRIAL HYGENIST Alina Castaneda MD [facility] CPT-95283 Level 4 Est. Patient 17:04:11 INDUSTRIAL HYGENIST Marvel Charles [facility] CPT-27421 Level 3 Est. Patient 15:34:11 INDUSTRIAL HYGENIST [facility] Level 2 Est. Patient 12:51:58 INDUSTRIAL HYGENIST Alina Castaneda MD [facility] CPT-11845 Level 3 Est. Patient 13:20:01 INDUSTRIAL HYGENIST Alina Castaneda MD [facility] CPT-48150 Level 3 Est. Patient 09:23:35 CDT Alina Castaneda MD [facility] Procedures Code Procedure Name Date Entry Date Standard Description CPT-93057 Bladder Scan 21:54:06 CDT CPT-G0008 Administration of Influenza Virus Vaccine 13:05:26 CDT CPT-80418 Fluzone Quadrivalent Intramuscular Suspension 0.5 ML 13: 05:26 CDT CPT-38744 Administration single or combination vaccine inc oral 11 :49:51 CDT CPT-24123 Pneumovax 11:49:51 CDT CPT-23321 Ribs unilateral 2V 12:37:22 INDUSTRIAL HYGENIST CPT-92802 Chest 2V Frontal and Lat 17:15:26 CDT CPT-81705 Abx/Therapy Injection 18:54:02 CDT CPT-J0696 Rocephin 1000 mg (Ceftriaxone) 16:00:32 CDT CPT-37481 Chest 2V Frontal and Lat 15:26:45 CDT CPT-12735 Chest 2V Frontal and Lat 10:23:27 CDT CPT-39783 Venipuncture Draw Fee 10:11:00 CDT CPT-18170 Administration single or combination vaccine inc oral 11 :56:38 CDT CPT-11302 Influenza split virus > age 3 11:56:38 CDT CPT-40724 Venipuncture Draw Fee 08:49:54 INDUSTRIAL HYGENIST CPT-44520 EKG Trac and Interp 17:54:19 INDUSTRIAL HYGENIST
--- OUTSIDE RECORDS SUMMARY | 2018-07-02 14:10 | XMS REPORT | Clinical Summary ---
Author Author Admin, TERELL Organization [email or web address] Address Unknown Phone Unavailable Allergies, Adverse Reactions, Alerts Allergy Name Reaction Description Start Date Severity Status Provider PROZAC Critical Active CRYSTAL Suarez ABIGURVINDER Critical Active CRYSTAL Suarez Conditions or Problems 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 Erazo MANAGER FLEET Benign paroxysmal positional vertigo Vertigo, benign paroxysmal position 386.11 Inactive Mima Erazo MANAGER FLEET Benign paroxysmal positional vertigo High-risk sexual behavior V69.2 Active Alina Castaneda MD PhD High-risk sexual behavior Erectile dysfunction 302.72 Active Alina Castaneda MD PhD Psychosexual dysfunction with inhibited sexual excitement Constipation 564.00 Active Alina Castaneda MD PhD Constipation, unspecified Skin lesion 709.9 Active Alina Castaneda MD PhD Unspecified disorder of skin and subcutaneous tissue Malaise and fatigue 780.79 Active Cherelle Speaks MANAGER FLEET Other malaise and fatigue Diarrhea 787.91 Active Cherelle Speaks MANAGER FLEET Diarrhea PHARYNGITIS 462 Active Cherelle Speaks MANAGER FLEET Acute pharyngitis Colitis 558.9 Active Mima Erazo MANAGER FLEET Other and unspecified noninfectious gastroenteritis and colitis [...] PhD FH STROKE ICD-V17.1 Inactive Marvel Charles BREAD WRAPPER FATIGUE ICD-780.79 Inactive Alina Castaneda MD PhD [...] Generic Name NDC Status Provider Patient Instruction LATUDA 60 MG ORAL TABS Take one by mouth daily LURASIDONE HCL 89295569542 Active Salina Ervinford [facility] Active MORPHINE SULFATE 30 MG ORAL TABS by mouth twice a day MORPHINE SULFATE 28889176724 Active Salina Emely [facility] Active TRAZODONE HCL 100 MG TABS 1 every night to prevent headaches TRAZODONE HCL 94851068951 Active Gabrielle Madl SOFTWARE ARCHITECT Active LATUDA 60 MG ORAL TABS 1 tab daily LURASIDONE HCL 04285988042 Active Gabrielle Marquez SOFTWARE ARCHITECT Active CLONAZEPAM 1 MG TABS 1 pill by mouth three times daily CLONAZEPAM 94357314503 Active Gabrielle Madl SOFTWARE ARCHITECT Active [facility] MILK OF MAGNESIA 400 MG/5ML ORAL SUSP 30ml by mouth bid prn MAGNESIUM HYDROXIDE 81019546099 Active Mason Loredo MD Active TYLENOL 8 HOUR 650 MG ORAL CR-TABS 1 tab QID prn ACETAMINOPHEN 82867921105 Active Mason Loredo MD Active MYLANTA GAS RELIEF MAXIMUM STR 125 MG ORAL CAPS 30cc every 4 hours prn 12/01 SIMETHICONE 25590734368 Active Mason Loredo MD Active IMODIUM A-D 2 MG ORAL TABS 1 tab QID as needed LOPERAMIDE HCL 54358954840 Active Mason Loredo MD Active FLUVOXAMINE MALEATE 50 MG ORAL TABS 1 tab by mouth daily FLUVOXAMINE MALEATE 58007671621 Active Mason Loredo MD Active TRAVATAN Z 0.004 % SOLN 1 gtt each eye daily TRAVOPROST 65115483451 No Longer Active Mason Loredo MD Active LISINOPRIL 20 MG TABS 1 BID LISINOPRIL 08907339296 No Longer Active Mason Loredo MD Active LEVEMIR FLEXTOUCH 100 UNIT/ML SC SOPN 60 units SQ each evening, for diabetes INSULIN DETEMIR 55835881379 Active Mason Loredo MD Active ZOLPIDEM TARTRATE 10 MG TABS take at bedtime ZOLPIDEM TARTRATE 25181402716 No Longer Active Mason Loredo MD Active HYDROCODONE-ACETAMINOPHEN 5-325 MG TABS 2 tabs by mouth three times daily for pain HYDROCODONE-ACETAMINOPHEN 16385312932 No Longer Active Mason Loredo MD Active ZOFRAN 4 MG TABS 1 po q4hr PRN Nausea ONDANSETRON HCL 94446732645 No Longer Active Mason Loredo MD Active LOMOTIL 2.5-0.025 MG ORAL TABS take 1-2 tabs PO after each stool, no more than 8 in 24 hours DIPHENOXYLATE-ATROPINE 65747435882 No Longer Active Mason Loredo MD Active COLACE 100 MG CAPS 1 pill by mouth twice daily, for constipation DOCUSATE SODIUM 87539549928 No Longer Active Mima Erazo APRN Active FLONASE ALLERGY RELIEF 50 MCG/ACT NASAL SUSP One spray each nostril BID x 1 week then daily FLUTICASONE PROPIONATE 44466535312 Active Mima Erazo APRN Active BD PEN NEEDLE MINI U/F 31G X 5 MM MISC 4 a day INSULIN PEN NEEDLE 74326613357 Active Maliheh Ziglari BREAD WRAPPER Active AMITIZA 24 MCG ORAL CAPS Take one capsule BID for constipation LUBIPROSTONE 22068925153 Active Mima Erazo APRN Active TRUEPLUS LANCETS 30G MISC 3 a day LANCETS 00190553063 Active Marvel Mackenzieglari BREAD WRAPPER Active TOLTERODINE TARTRATE 2 MG TABS 1 pill twice daily, for bladder TOLTERODINE TARTRATE 44756774737 No Longer Active Vanessa Hickey MD Active AMITIZA 24 MCG ORAL CAPS Take one capsule BID for constipation. LUBIPROSTONE 29884850583 No Longer Active Vanessa Hickey MD Active FLUVOXAMINE MALEATE 100 MG ORAL TABS take one tab every AM et HS, and take 1/ 2 tab at noon FLUVOXAMINE MALEATE 70857836428 Active Grace Azam RMA Active METOPROLOL SUCCINATE 100 MG [id number] 1 by mouth daily for blood pressure METOPROLOL SUCCINATE 38054033883 No Longer Active Grace Azam RMA Active METFORMIN HCL ER 500 MG [id number] Take three tablets by mouth everyday METFORMIN HCL 11600093544 No Longer Active Grace Azam RMA Active LOVAZA 1 GM CAPS 4 daily (for triglycerides) OMEGA-3- ACID ETHYL ESTERS 43194700904 No Longer Active Grace Azam RMA Active TRAZODONE HCL 100 MG ORAL TABS 1 tab by mouth for sleep TRAZODONE HCL 96491386610 No Longer Active Grace Azam RMA Active NOVOFINE 32G X 6 MM MISC use one four times per day INSULIN PEN NEEDLE 65179883911 No Longer Active Grace Azam RMA Active BACTROBAN 2 % CREAM Apply to affected area BID for up to 10 days MUPIROCIN CALCIUM 99218502051 No Longer Active Grace Azam RMA Active KEFLEX 500 MG CAP 1 po BID x 7 days CEPHALEXIN 19731543042 No Longer Active Cherelle Speaks MANAGER FLEET Active FLUVOXAMINE MALEATE 100 MG TABS Take one (1) tablet by mouth am, 1/2 at noon FLUVOXAMINE MALEATE 94394663365 No Longer Active Mima Erazo MANAGER FLEET Active CORICIDIN HBP CONGESTION/COUGH 10-200 MG ORAL CAPS Take as directed on box as needed for cold/flu symptoms DEXTROMETHORPHAN-GUAIFENESIN 75495586372 Active Cherelle Speaks MANAGER FLEET Active OMEGA-3 300 MG ORAL CAPS 4 caps by mouth daily OMEGA-3 FATTY ACIDS 54271002527 Active Mima Erazo MANAGER FLEET Active FLUVOXAMINE MALEATE 100 MG ORAL TABS Take 1/2 tab at noon FLUVOXAMINE MALEATE 15953092746 No Longer Active Cherelle Avila MANAGER FLEET Active [facility] LUBRICANT EYE DROPS 0.4-0.3 % OPHTH SOLN POLYETHYL GLYCOL-PROPYL GLYCOL 28546536131 Active Mima Erazo MANAGER FLEET Active MIRALAX POWD 17g by mouth daily, for constipation POLYETHYLENE GLYCOL 3350 07442043356 Active Alina Castaneda MD PhD Active HUMALOG KWIKPEN 100 UNIT/ML SC SOPN 20 units with breakfast, 10 units with lunch, 10 units with dinner, for diabetes INSULIN LISPRO (HUMAN ) 94899193863 Active Alina Castaneda MD PhD Active TRUETEST TEST STRP check blood sugars 3x/day GLUCOSE BLOOD 72416820747 Active Maliheh Ziglari BREAD WRAPPER Active ACCU-CHEK ROSA UZMA Use device to check blood sugars BLOOD GLUCOSE MONITORING SUPPL 51255101224 No Longer Active Maliheh Ziglari BREAD WRAPPER Active ACCU-CHEK ROSA INVITR STRP use strips with device to check blood sugars 3 times daily GLUCOSE BLOOD 21228354301 No Longer Active Maliheh Ziglari BREAD WRAPPER Active VERAPAMIL HCL ER 180 MG ORAL CR-TABS 1 pill by mouth twice daily, for migraine prevention VERAPAMIL HCL 11600863542 Active CRYSTAL Rodrigues Active CYCLOBENZAPRINE HCL 10 MG TABS 1 tablet by mouth three times daily, scheduled CYCLOBENZAPRINE HCL 29963237440 No Longer Active Alina Castaneda MD PhD Active HUMALOG 100 UNIT/ML SOLN Take 20 units with breakfast, 10u with lunch and suppetr. INSULIN LISPRO (HUMAN) 03566936848 No Longer Active Alina Castaneda MD PhD Active TRUETEST TEST STRP check sugars 4x/day GLUCOSE BLOOD 61402244331 No Longer Active Alina Castaneda MD PhD Active MORPHINE SULFATE 30 MG TABS 1 pill by mouth twice daily, for pain MORPHINE SULFATE 33250052858 No Longer Active Mason Loredo MD Active ACYCLOVIR 400 MG ORAL TABS 1 pill three times daily x 5 days, for cold sore outbreak ACYCLOVIR 91304449728 No Longer Active Alina Castaneda MD PhD Active PENICILLIN V POTASSIUM 500 MG TABS 1 pill by mouth three times daily PENICILLIN V POTASSIUM 66339179512 No Longer Active Alina Castaneda MD PhD Active UROXATRAL 10 MG [id number] Take 1 tablet by mouth daily ALFUZOSIN HCL 69818099258 No Longer Active Alina Castaneda MD PhD Active THIOTHIXENE 5 MG CAPS by mouth twice a day THIOTHIXENE 34752039961 No Longer Active Alina Castaneda MD PhD Active ZYPREXA 7.5 MG TABS 1 at HS OLANZAPINE 91919358692 No Longer Active Alina Castaneda MD PhD Active BD INSULIN SYRINGE 28G X 1/2" 1 ML MISC 1 four times per day INSULIN SYRINGE-NEEDLE U-100 93482905018 Active Marvel MENDOZAP Active DETROL LA 4 MG [id number]-THD Take 1 tablet by mouth daily TOLTERODINE TARTRATE 82720155899 No Longer Active Alina Castaneda MD PhD Active TERESE CONTOUR TEST STRP monitor blood sugars 3x/day GLUCOSE BLOOD 38457809164 No Longer Active Alina Castaneda MD PhD Active EQL TRUETEST TEST STRP Test blood sugar TID GLUCOSE BLOOD 62435673544 No Longer Active Alina Castaneda MD PhD Active FLUTICASONE PROPIONATE 50 MCG/ACT SUSP 2 sprays each nostril qDay x 30 days FLUTICASONE PROPIONATE 27888927996 No Longer Active Alina Castaneda MD PhD Active IBUPROFEN 200 MG TABS 1 Q 6 hr. PRN IBUPROFEN 55916588647 No Longer Active Alina Castaneda MD PhD Active NIACIN ER 500 MG CR-TABS 4 qHS (for triglycerides) NIACIN 85196412185 No Longer Active Alina Castaneda MD PhD Active ALFUZOSIN HCL ER 10 MG [id number] 1 tablet daily ALFUZOSIN HCL 80441395317 Active CRYSTAL Rodrigues Active SAPHRIS 5 MG SUBL by mouth twice a day ASENAPINE MALEATE 20334325297 No Longer Active Maliheh Ziglari BREAD WRAPPER Active ACETAMINOPHEN 500 MG TABS 2 Q 6 hr. PRN ACETAMINOPHEN 53829229703 No Longer Active Maliheh Ziglari BREAD WRAPPER Active ORPHENADRINE CITRATE ER 100 MG OC97S-YPO 1 every 12 hr. as needed ORPHENADRINE CITRATE 99596534447 No Longer Active Alina Castaneda MD PhD Active NIACIN CR 500 MG CR-TABS 2 qHS NIACIN 51198348889 No Longer Active Alina Castaneda MD PhD Active AMOXICILLIN 500 MG CAPS 2 po BID x 10 days AMOXICILLIN 13026298600 No Longer Active Alina Castaneda MD PhD Active HYDROCODONE-ACETAMINOPHEN 7.5-325 MG TABS 1 four times a day as needed for pain HYDROCODONE-ACETAMINOPHEN 20232784596 No Longer Active Alina Castaneda MD PhD Active DOXEPIN HCL 10 MG CAPS Take 1 tablet by mouth daily DOXEPIN HCL 64575104169 No Longer Active Salina Han RMA Active NAVANE 10 MG CAPS 1/2 tablet twice a day THIOTHIXENE No Longer Active Salina ROBBINSA Active CYCLOBENZAPRINE HCL 10 MG TABS 1/2 tablet by mouth every 8 hours as needed for muscle spasms CYCLOBENZAPRINE HCL 58489986330 No Longer Active Alina Castaneda MD PhD Active BACTROBAN 2 % CREAM apply to ear and nose twice daily MUPIROCIN CALCIUM 89500511561 No Longer Active Alina Castaneda MD PhD Active HYDROCODONE-ACETAMINOPHEN 5-325 MG TABS take one tablet by mouth every four hours as needed for pain HYDROCODONE-ACETAMINOPHEN 90296159746 No Longer Active Alina Castaneda MD PhD Active ZYPREXA 5 MG TABS take one tablet by mouth every evening OLANZAPINE 02843935816 No Longer Active Alina Castaneda MD PhD Active ALBUTEROL SULFATE 0.083 % NEBU SOLN one vial per nebulizer TID and PRN cough/ soa ALBUTEROL SULFATE 12938709280 No Longer Active Alina Castaneda MD PhD Active GUAIFENESIN 600 MG [id number]-QQK 1 tablet by mouth twice daily if needed for cough GUAIFENESIN 47671370443 No Longer Active Marvel MARROQUIN Active AZITHROMYCIN 500 MG SOLR 1 po q day AZITHROMYCIN 95462799275 No Longer Active Alina Castaneda MD PhD Active PROMETHAZINE-CODEINE 6.25-10 MG/5ML SYRP 1 tsp po q 6 hours prn cough PROMETHAZINE-CODEINE 29427741470 No Longer Active Alina Castaneda MD PhD Active CEFDINIR 300 MG CAPS by mouth twice a day CEFDINIR 19161955631 No Longer Active Alina Castaneda MD PhD Active METFORMIN HCL 500 MG [id number]-RRD Take 3 tablets by mouth everyday METFORMIN HCL 58376187438 No Longer Active Alina Castaneda MD PhD Active LEVEMIR 100 UNIT/ML SOLN 90 units SQ qHS INSULIN DETEMIR 57001001091 No Longer Active Marvel MARROQUIN Active TOPROL XL 100 MG [id number]-[id number] 1 @ HS METOPROLOL SUCCINATE 69479151073 No Longer Active Marvel MARROQUIN Active ALLOPURINOL 300 MG TABS Take one by mouth daily ALLOPURINOL 59007052805 Active Mimacecily Erazo MANAGER FLEET Active ZYPREXA 10 MG TABS Take one by mouth daily OLANZAPINE 00550555572 No Longer Active Alina Castaneda MD PhD Active NOVOLOG 100 UNIT/ML SOLN 40 units with every meal INSULIN ASPART 95584095806 No Longer Active Alina Castaneda MD PhD Active VERAPAMIL HCL CR 120 MG TAB CR 1 qPM VERAPAMIL HCL 13137952117 No Longer Active Salina ROJAS Active ZYPREXA 15 MG TABS Take 1 tablet by mouth daily OLANZAPINE 68875663915 No Longer Active Marvel MARROQUIN Active ALBUTEROL SULFATE (2.5 MG/3ML) 0.083% NEBU 1 neb tid and prn cough ALBUTEROL SULFATE 53578927691 No Longer Active Alina Castaneda MD PhD Active LANTUS 100 UNIT/ML SOLN 60 units sq q hs INSULIN GLARGINE 61720213995 No Longer Active CRYSTAL Suarez Active ALBUTEROL SULFATE (2.5 MG/3ML) 0.083% NEBU 1 neb tid and prn cough ALBUTEROL SULFATE (2.5 MG/3ML) 0.083% NEBU 106863 ALBUTEROL SULFATE Inactive ZYPREXA 15 MG TABS Take 1 tablet by mouth daily ZYPREXA 15 MG TABS 874606 OLANZAPINE Inactive VERAPAMIL HCL CR 120 MG TAB CR 1 qPM VERAPAMIL HCL CR 120 MG TAB CR VERAPAMIL HCL Inactive ZYPREXA 10 MG TABS Take one by mouth daily ZYPREXA 10 MG TABS 172069 OLANZAPINE Inactive TOPROL XL 100 MG [id number] 1 @ HS TOPROL XL 100 MG TV68C-LWS METOPROLOL SUCCINATE Inactive LEVEMIR 100 UNIT/ML SOLN 90 units SQ qHS LEVEMIR 100 UNIT/ML SOLN INSULIN DETEMIR Inactive PROMETHAZINE-CODEINE 6.25-10 MG/5ML SYRP 1 tsp po q 6 hours prn cough PROMETHAZINE-CODEINE 6.25-10 MG/5ML SYRP 062736 PROMETHAZINE- CODEINE Inactive GUAIFENESIN 600 MG DU33C-QNB 1 tablet by mouth twice daily if needed for cough GUAIFENESIN 600 MG HP35G-PCN GUAIFENESIN Inactive ALBUTEROL SULFATE 0.083 % NEBU SOLN one vial per nebulizer TID and PRN cough/ soa ALBUTEROL SULFATE 0.083 % NEBU SOLN 946893 ALBUTEROL SULFATE Inactive ZYPREXA 5 MG TABS take one tablet by mouth every evening ZYPREXA 5 MG TABS 601135 OLANZAPINE Inactive HYDROCODONE-ACETAMINOPHEN 5-325 MG TABS take one tablet by mouth every four hours as needed for pain HYDROCODONE-ACETAMINOPHEN 5-325 MG TABS 727084 HYDROCODONE-ACETAMINOPHEN Inactive BACTROBAN 2 % CREAM apply to ear and nose twice daily BACTROBAN 2 % CREAM 214255 MUPIROCIN CALCIUM Inactive CYCLOBENZAPRINE HCL 10 MG TABS 1/2 tablet by mouth every 8 hours as needed for muscle spasms CYCLOBENZAPRINE HCL 10 MG TABS 241384 CYCLOBENZAPRINE HCL Inactive NAVANE 10 MG CAPS 1/2 tablet twice a day NAVANE 10 MG CAPS THIOTHIXENE Inactive DOXEPIN HCL 10 MG CAPS Take 1 tablet by mouth daily DOXEPIN HCL 10 MG CAPS 4936234 DOXEPIN HCL Inactive HYDROCODONE-ACETAMINOPHEN 7.5-325 MG TABS 1 four times a day as needed for pain HYDROCODONE-ACETAMINOPHEN 7.5-325 MG TABS 298884 HYDROCODONE-ACETAMINOPHEN Inactive NIACIN CR 500 MG CR-TABS 2 qHS NIACIN CR 500 MG CR- TABS NIACIN Inactive ORPHENADRINE CITRATE ER 100 MG [id number]-JVI 1 every 12 hr. as needed ORPHENADRINE CITRATE ER 100 MG [id number] ORPHENADRINE CITRATE Inactive ACETAMINOPHEN 500 MG TABS 2 Q 6 hr. PRN ACETAMINOPHEN 500 MG TABS 011482 ACETAMINOPHEN Inactive SAPHRIS 5 MG SUBL by mouth twice a day SAPHRIS 5 MG SUBL ASENAPINE MALEATE Inactive NIACIN ER 500 MG CR-TABS 4 qHS (for triglycerides) NIACIN ER 500 MG CR-TABS NIACIN Inactive IBUPROFEN 200 MG TABS 1 Q 6 hr. PRN IBUPROFEN 200 MG TABS 879046 IBUPROFEN Inactive FLUTICASONE PROPIONATE 50 MCG/ACT SUSP 2 sprays each nostril qDay x 30 days FLUTICASONE PROPIONATE 50 MCG/ACT SUSP 191000 FLUTICASONE PROPIONATE Inactive EQL TRUETEST TEST STRP Test blood sugar TID EQL TRUETEST TEST STRP GLUCOSE BLOOD Inactive TERESE CONTOUR TEST STRP monitor blood sugars 3x/day TERESE CONTOUR TEST STRP GLUCOSE BLOOD Inactive DETROL LA 4 MG IO70B-RVT Take 1 tablet by mouth daily DETROL LA 4 MG [id number] TOLTERODINE TARTRATE Inactive ZYPREXA 7.5 MG TABS 1 at HS ZYPREXA 7.5 MG TABS 680713 OLANZAPINE Inactive THIOTHIXENE 5 MG CAPS by mouth twice a day THIOTHIXENE 5 MG CAPS 761398 THIOTHIXENE Inactive UROXATRAL 10 MG [id number] Take 1 tablet by mouth daily UROXATRAL 10 MG IY80O-MSW ALFUZOSIN HCL Inactive ACYCLOVIR 400 MG ORAL TABS 1 pill three times daily x 5 days, for cold sore outbreak ACYCLOVIR 400 MG ORAL TABS 213547 ACYCLOVIR Inactive TRUETEST TEST STRP check sugars 4x/day TRUETEST TEST STRP GLUCOSE BLOOD Inactive HUMALOG 100 UNIT/ML SOLN Take 20 units with breakfast, 10u with lunch and suppetr. HUMALOG 100 UNIT/ML SOLN INSULIN LISPRO ( HUMAN) Inactive CYCLOBENZAPRINE HCL 10 MG TABS 1 tablet by mouth three times daily, scheduled CYCLOBENZAPRINE HCL 10 MG TABS 831518 CYCLOBENZAPRINE HCL Inactive ACCU-CHEK ROSA INVITR STRP use strips with device to check blood sugars 3 times daily ACCU-CHEK ROSA INVITR STRP GLUCOSE BLOOD Inactive ACCU-CHEK ROSA UZMA Use device to check blood sugars ACCU-CHEK ROSA UZMA BLOOD GLUCOSE MONITORING SUPPL Inactive FLUVOXAMINE MALEATE 100 MG ORAL TABS Take 1/2 tab at noon FLUVOXAMINE MALEATE 100 MG ORAL TABS 127451 FLUVOXAMINE MALEATE Inactive FLUVOXAMINE MALEATE 100 MG TABS Take one (1) tablet by mouth am, 1/2 at noon FLUVOXAMINE MALEATE 100 MG TABS 217803 FLUVOXAMINE MALEATE Inactive BACTROBAN 2 % CREAM Apply to affected area BID for up to 10 days BACTROBAN 2 % CREAM 868160 MUPIROCIN CALCIUM Inactive NOVOFINE 32G X 6 MM MISC use one four times per day NOVOFINE 32G X 6 MM MISC INSULIN PEN NEEDLE Inactive TRAZODONE HCL 100 MG ORAL TABS 1 tab by mouth for sleep TRAZODONE HCL 100 MG ORAL TABS 258279 TRAZODONE HCL Inactive LOVAZA 1 GM CAPS 4 daily (for triglycerides) LOVAZA 1 GM CAPS 229966 ESQCO-4-IGXQ ETHYL ESTERS Inactive METFORMIN HCL ER 500 MG SD45V-YIZ Take three tablets by mouth everyday METFORMIN HCL ER 500 MG RF63E-REM METFORMIN HCL Inactive METOPROLOL SUCCINATE 100 MG OI61U-BEV 1 by mouth daily for blood pressure METOPROLOL SUCCINATE 100 MG KM79A-BNG METOPROLOL SUCCINATE Inactive AMITIZA 24 MCG ORAL CAPS Take one capsule BID for constipation. AMITIZA 24 MCG ORAL CAPS LUBIPROSTONE Inactive TOLTERODINE TARTRATE 2 MG TABS 1 pill twice daily, for bladder TOLTERODINE TARTRATE 2 MG TABS 118713 TOLTERODINE TARTRATE Inactive COLACE 100 MG CAPS 1 pill by mouth twice daily, for constipation COLACE 100 MG CAPS 4505457 DOCUSATE SODIUM Inactive LOMOTIL 2.5-0.025 MG ORAL TABS take 1-2 tabs PO after each stool, no more than 8 in 24 hours LOMOTIL 2.5-0.025 MG ORAL TABS 2002917 DIPHENOXYLATE-ATROPINE Inactive ZOFRAN 4 MG TABS 1 po q4hr PRN Nausea ZOFRAN 4 MG TABS 740011 ONDANSETRON HCL Inactive HYDROCODONE-ACETAMINOPHEN 5-325 MG TABS 2 tabs by mouth three times daily for pain HYDROCODONE-ACETAMINOPHEN 5-325 MG TABS 806131 HYDROCODONE-ACETAMINOPHEN Inactive ZOLPIDEM TARTRATE 10 MG TABS take at bedtime ZOLPIDEM TARTRATE 10 MG TABS 454933 ZOLPIDEM TARTRATE Inactive LISINOPRIL 20 MG TABS 1 BID LISINOPRIL 20 MG TABS 528859 LISINOPRIL Inactive TRAVATAN Z 0.004 % SOLN 1 gtt each eye daily TRAVATAN Z 0.004 % SOLN TRAVOPROST Inactive CEFDINIR 300 MG CAPS by mouth twice a day CEFDINIR 300 MG CAPS 139969 CEFDINIR Inactive AZITHROMYCIN 500 MG SOLR 1 po q day AZITHROMYCIN 500 MG SOLR 71632339820 AZITHROMYCIN Inactive AMOXICILLIN 500 MG CAPS 2 po BID x 10 days AMOXICILLIN 500 MG CAPS 585310 AMOXICILLIN Inactive PENICILLIN V POTASSIUM 500 MG TABS 1 pill by mouth three times daily PENICILLIN V POTASSIUM 500 MG TABS 586865 PENICILLIN V POTASSIUM Inactive KEFLEX 500 MG CAP 1 po BID x 7 days KEFLEX 500 MG CAP 487917 CEPHALEXIN Inactive Immunizations Vaccine Administration Date Value [...] Fluvirin, Fluarix, Agriflu(>=18 yo)) Fluzone (>3 yrs.) [[id number]] Influenza, seasonal, injectable pneumococcal immunization administered Pneumovax [...] Panel - Chemistry sodium, serum 137 mmol/L 112-872 6363/10/12 potassium, serum 4.8 mmol/L 3.5-5.2 chloride, serum 102 mmol/L 98-107 carbon dioxide, venous blood 27.6 mmol/L 21.0-32.0 blood glucose 168 mg/dL 65-110 calcium, serum 9.0 mg/dL 8.5-10.1 urea nitrogen, blood 15 mg/dL 7-18 creatinine, serum 1.04 mg/dL 0.55-1.30 sodium, serum 138 mmol/L 699-491 5203/11/11 potassium, serum 4.7 mmol/L 3.5-5.2 chloride, serum [...] % 11.6-14.8 platelet count 240 10^3/MM^3 10*3/mm3 957-329 7207/11/11 leukocyte count, blood 9.6 10^3/MM^3 10*3/mm3 4.6-10.2 [...] Acid - Chemistry cholesterol, serum 187 mg/dL 689-897 9871/06/14 triglyceride, serum, fasting 246 mg/dL 30-200 HDL [...] negative Encounters Code Encounter Date Provider Facility CPT-96938 Level 3 Est. Patient 14:34:52 CDT Vanessa Hickey MD [facility]-98925 Level 3 Est. Patient 16:27:51 CDT Mima Erazo [facility]-49440 Level 3 Est. Patient 14:39:00 MANAGER OF TRAINING AND DEVELOPMENT Vanessa Hickey MD [facility]-18575 Level 2 Est. Patient 18:43:34 CDT Mima Erazo [facility] CPT-83020 Level 3 Est. Patient 16:22:09 CDT Cherelle Avila [facility] CPT-94752 Level 4 Est. Patient 17:55:14 CDT Mima Erazo [facility] CPT-38494 Level 2 Est. Patient 17:13:21 CDT Alina Castaneda MD PhD [facility]-25185 Level 3 Est. Patient 14:46:15 CDT Vanessa Hickey MD [facility]-06348 Level 3 Est. Patient 09:34:56 CDT Alina Castaneda MD [facility]89187 Level 3 Est. Patient 21:40:19 CDT Mima Erazo APRN [facility]-61232 Level 3 Est. Patient 09:26:40 CDT Marvel Charles [facility]-83344 Level 3 Est. Patient 12:36:43 CDT Vanessa Hickey MD [facility]-98669 Level 3 Est. Patient 12:57:49 CDT Vanessa Hickey MD [facility]07562 Level 3 Est. Patient 00:28:25 CDT Alina Castaneda MD [facility]01920 Level 2 Est. Patient 12:52:14 CDT Alina Castaneda MD [facility]62168 Level 3 Est. Patient 11:51:18 MANAGER OF TRAINING AND DEVELOPMENT Alina Castaneda MD [facility]24998 Level 3 Est. Patient 10:09:22 MANAGER OF TRAINING AND DEVELOPMENT Alina Castaneda MD [facility]32544 Level 3 Est. Patient 14:36:26 MANAGER OF TRAINING AND DEVELOPMENT Marvel Charles [facility]71848 Level 3 Est. Patient 13:34:47 MANAGER OF TRAINING AND DEVELOPMENT Alina Castaneda MD [facility]19939 Level 3 Est. Patient 19:52:08 MANAGER OF TRAINING AND DEVELOPMENT Alina Castaneda MD [facility]52280 Level 3 Est. Patient 10:01:51 MANAGER OF TRAINING AND DEVELOPMENT Marvel [facility]32223 Level 3 Est. Patient 21:54:06 CDT Vanessa Hickey MD [facility]56566 Level 3 Est. Patient 08:54:46 CDT Alina Castaneda MD [facility]43601 Level 3 Est. Patient 09:32:11 CDT Maliheh Ziglari [facility]-41824 Level 3 Est. Patient 12:02:49 CDT Alina Castaneda MD [facility]-87650 Level 3 Est. Patient 19:17:33 CDT Alina Castaneda MD [facility]79055 Level 3 Est. Patient 13:19:10 CDT Marvel Charles [facility]-70264 Level 3 Est. Patient 08:20:05 CDT Alina Castaneda MD [facility]86588 Level 3 Est. Patient 15:17:18 CDT Alina Castaneda MD [facility]-08558 Level 3 Est. Patient 14:25:36 MANAGER OF TRAINING AND DEVELOPMENT Marvel Charles [facility]-95892 Level 3 Est. Patient 10:09:15 MANAGER OF TRAINING AND DEVELOPMENT Marvel Charles [facility]-83743 Level 3 Est. Patient 21:28:43 CDT Alina Castaneda MD [facility]-85797 Level 3 Est. Patient 15:20:11 CDT Marvel Gurdeepajayestela [facility]-62661 Level 4 Est. Patient 19:08:12 CDT Alina Castaneda MD [facility]-06007 Level 3 Est. Patient 15:06:39 CDT Marvel Gurdeepajayestela [facility]-97698 Level 4 Est. Patient 17:48:15 CDT Alina Castaneda MD [facility]96639 Level 3 Est. Patient 14:53:49 CDT Alina Castaneda MD [facility]29417 Level 3 Est. Patient 09:35:16 CDT Alina Castaneda MD [facility]-65529 Level 3 Est. Patient 12:23:22 CDT Alina Castaneda MD [facility] [place]-[address]28 Level 3 Est. Patient 16:19:15 CDT Alina Castaneda MD [facility]73021 Level 3 Est. Patient 21:39:56 MANAGER OF TRAINING AND DEVELOPMENT Alina Castaneda MD [facility] [place]-86069 Level 4 Est. Patient 14:12:56 MANAGER OF TRAINING AND DEVELOPMENT Alina Castaneda MD [facility] [place]-57515 Level 2 Est. Patient 15:34:57 MANAGER OF TRAINING AND DEVELOPMENT Alina Castaneda MD [facility] [place]-77331 Level 3 Est. Patient 12:17:04 MANAGER OF TRAINING AND DEVELOPMENT Alina Castaneda MD [facility] [place]-08172 Level 3 Est. Patient 09:18:18 MANAGER OF TRAINING AND DEVELOPMENT [facility]-69944 Level 2 Est. Patient 21:50:24 CDT Alina Castaneda MD [facility] [place]-94906 Level 3 Est. Patient 09:17:28 CDT [facility]-90030 Level 4 Est. Patient 18:54:02 CDT Alina Castaneda MD [facility] [place]-86322 Level 3 Est. Patient 10:47:10 CDT Alina Castaneda MD [facility]71821 Level 3 Est. Patient 09:22:20 CDT [facility]67973 Level 3 Est. Patient 16:39:43 CDT [facility]58383 Level 3 Est. Patient 16:05:16 CDT Alina Castaneda MD [facility] CPT-09985 Level 3 Est. Patient 00:29:15 CDT Alina Castaneda MD [facility] CPT-02761 Level 3 Est. Patient 10:49:22 MANAGER OF TRAINING AND DEVELOPMENT Marvel Thurstonestela [facility] CPT-18112 Level 3 Est. Patient 21:30:19 MANAGER OF TRAINING AND DEVELOPMENT Alina Castaneda MD [facility] CPT-00679 Level 4 Est. Patient 17:04:11 MANAGER OF TRAINING AND DEVELOPMENT [facility] Level 3 Est. Patient 15:34:11 MANAGER OF TRAINING AND DEVELOPMENT [facility]33997 Level 2 Est. Patient 12:51:58 MANAGER OF TRAINING AND DEVELOPMENT Alina Castaneda MD [facility] CPT-90796 Level 3 Est. Patient 13:20:01 MANAGER OF TRAINING AND DEVELOPMENT Alina Castaneda MD [facility] CPT-13379 Level 3 Est. Patient 09:23:35 CDT Alina Castaneda MD [facility] Procedures Code Procedure Name Date Entry Date Standard Description CPT-TCM Transitional Care Mgmt-Moderate 10:25:31 CDT CPT-23384 Bladder Scan 14:34:53 CDT CPT-83073 Bladder Scan 14:39:01 MANAGER OF TRAINING AND DEVELOPMENT CPT-TCMM Transitional Care Mgmt-Moderate 10:30:19 MANAGER OF TRAINING AND DEVELOPMENT CPT-28696 Bladder Scan 12:36:44 CDT CPT-85756 Bladder Scan 21:54:06 CDT CPT-G0008 Administration of Influenza Virus Vaccine 13:05:26 CDT CPT-71945 Fluzone Quadrivalent Intramuscular Suspension 0.5 ML 13: 05:26 CDT CPT-23203 Administration single or combination vaccine inc oral 11 :49:51 CDT CPT-52714 Pneumovax 11:49:51 CDT CPT-08412 Ribs unilateral 2V 12:37:22 MANAGER OF TRAINING AND DEVELOPMENT CPT-59125 Chest 2V Frontal and Lat 17:15:26 CDT CPT-48452 Abx/Therapy Injection 18:54:02 CDT CPT-J0696 Rocephin 1000 mg (Ceftriaxone) 16:00:32 CDT CPT-14609 Chest 2V Frontal and Lat 15:26:45 CDT CPT-03826 Chest 2V Frontal and Lat 10:23:27 CDT CPT-74065 Venipuncture Draw Fee 10:11:00 CDT CPT-31467 Administration single or combination vaccine inc oral 11 :56:38 CDT CPT-34616 Influenza split virus > age 3 11:56:38 CDT CPT-65342 Venipuncture Draw Fee 08:49:54 MANAGER OF TRAINING AND DEVELOPMENT CPT-85360 EKG Trac and Interp 17:54:19 MANAGER OF TRAINING AND DEVELOPMENT
--- OUTSIDE RECORDS SUMMARY | 2018-07-02 14:12 | XMS REPORT | Clinical Summary ---
Author Author Admin, TERELL Organization [facility] Address Unknown Phone Unavailable Allergies, Adverse 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 Erazo [employer]ATE [employer]EL EXPERT Benign paroxysmal positional vertigo Vertigo, benign paroxysmal position 386.11 Inactive Mima Erazo [employer]ATE [employer]VEL EXPERT Benign paroxysmal positional vertigo High-risk sexual behavior V69.2 Active Alina Castaneda MD PhD High-risk sexual behavior Erectile dysfunction 302.72 Active Alina Castaneda MD PhD Psychosexual dysfunction with inhibited sexual excitement Constipation 564.00 Active Alina Castaneda MD PhD Constipation, unspecified Skin lesion 709.9 Active Alina Castaneda MD PhD Unspecified disorder of skin and subcutaneous tissue Malaise and fatigue 780.79 Active Cherelle Speaks [employer]PORATE TRAVEL EXPERT Other malaise and fatigue Diarrhea 787.91 Active Cherelle Speaks [employer]PORATE TRAVEL EXPERT Diarrhea PHARYNGITIS 462 Active Cherelle Speaks [employer]PORATE TRAVEL EXPERT Acute pharyngitis Colitis 558.9 Active Mima Erazo [employer]PORATE TRAVEL EXPERT Other and unspecified noninfectious gastroenteritis and colitis WOUND, OPEN, NOSE ICD-873.20 Inactive Alina Castaneda MD PhD DIABETES, TYPE 2 ICD-250.00 Inactive Alina Castaneda MD PhD HYPERTENSION ICD-401.9 Inactive Alina Castaneda MD PhD URI ICD-465.9 Inactive Alina Castaneda MD PhD CHEST PAIN ICD-786.50 Inactive Alina Castaneda MD PhD FH STROKE ICD-V17.1 Inactive Marvel Charles MECHANICAL ASSEMBLY TECHNICIAN FATIGUE ICD-780.79 Inactive Alina Castaneda MD PhD [...] SQ each evening, for diabetes INSULIN DETEMIR 68949466943 Active Salina ROJAS Active TRUEPLUS LANCETS 30G MISC 3 a day LANCETS 30609803954 Active Marvel MENDOZAP Active TOLTERODINE TARTRATE 2 MG TABS 1 pill twice daily, for bladder TOLTERODINE TARTRATE 54066834082 No Longer Active Vanessa Hickey MD Active AMITIZA 24 MCG ORAL CAPS Take one capsule BID for constipation. LUBIPROSTONE 84501759676 No Longer Active Vanessa Hickey MD Active LOMOTIL 2.5-0.025 MG ORAL TABS take 1-2 tabs PO after each stool, no more than 8 in 24 hours DIPHENOXYLATE-ATROPINE 87350751176 Active Grace ROJAS Active FLUVOXAMINE MALEATE 100 MG ORAL TABS take one tab every AM et HS, and take 1/ 2 tab at noon FLUVOXAMINE MALEATE 70218082822 Active Grace ROJAS Active METOPROLOL SUCCINATE 100 MG [id number]-USJ 1 by mouth daily for blood pressure METOPROLOL SUCCINATE 43323049926 No Longer Active Grace Nelsonb RMA Active METFORMIN HCL ER 500 MG [id number]-ZSM Take three tablets by mouth everyday METFORMIN HCL 09521802945 No Longer Active Grace Azam RMA Active LOVAZA 1 GM CAPS 4 daily (for triglycerides) OMEGA-3- ACID ETHYL ESTERS 17744368987 No Longer Active Grace Azam RMA Active TRAZODONE HCL 100 MG ORAL TABS 1 tab by mouth for sleep TRAZODONE HCL 91515389235 No Longer Active Grace Azam RMA Active NOVOFINE 32G X 6 MM MISC use one four times per day INSULIN PEN NEEDLE 26901593003 No Longer Active Grace Azam RMA Active BACTROBAN 2 % CREAM Apply to affected area BID for up to 10 days MUPIROCIN CALCIUM 66638238117 No Longer Active Grace Azam RMA Active ZOFRAN 4 MG TABS 1 po q4hr PRN Nausea ONDANSETRON HCL 41341593983 Active Salina Han RMA Active KEFLEX 500 MG CAP 1 po BID x 7 days CEPHALEXIN 32501939781 No Longer Active Cherelle Speaks [employer]PORATE TRAVEL EXPERT Active FLUVOXAMINE MALEATE 100 MG TABS Take one (1) tablet by mouth am, 1/2 at noon FLUVOXAMINE MALEATE 49437435235 No Longer Active Mima Erazo [employer]PORATE TRAVEL EXPERT Active CORICIDIN HBP CONGESTION/COUGH 10-200 MG ORAL CAPS Take as directed on box as needed for cold/flu symptoms DEXTROMETHORPHAN-GUAIFENESIN 39521848117 Active Cherelle Speaks CORPORATE TRAVEL EXPERT Active OMEGA-3 300 MG ORAL CAPS 4 caps by mouth daily OMEGA-3 FATTY ACIDS 61396608921 Active Cherelle Speaks CORPORATE TRAVEL EXPERT Active FLUVOXAMINE MALEATE 100 MG ORAL TABS Take 1/2 tab at noon FLUVOXAMINE MALEATE 51091673371 No Longer Active Cherelle Avlia CORPORATE TRAVEL EXPERT Active [facility] LUBRICANT EYE DROPS 0.4-0.3 % OPHTH SOLN POLYETHYL GLYCOL-PROPYL GLYCOL 76952164346 Active Mima Erazo [employer]PORATE TRAVEL EXPERT Active CLONAZEPAM 1 MG TABS 1/2 pill by mouth three times daily CLONAZEPAM 61871263015 Active Alina Castaneda MD PhD Active MIRALAX POWD 17g by mouth daily, for constipation POLYETHYLENE GLYCOL 3350 42696972417 Active Alina Castaneda MD PhD Active HYDROCODONE-ACETAMINOPHEN 5-325 MG TABS 2 tabs by mouth three times daily for pain HYDROCODONE-ACETAMINOPHEN 08520722928 Active Mima Erazo [employer]PORATE TRAVEL EXPERT Active HUMALOG KWIKPEN 100 UNIT/ML SC SOPN 20 units with breakfast, 10 units with lunch, 10 units with dinner, for diabetes INSULIN LISPRO (HUMAN ) 70727042053 Active lAina Castaneda MD PhD Active LATUDA 120 MG ORAL TABS 1 pill by mouth nightly LURASIDONE HCL 08255034290 Active Alina Castaneda MD PhD Active COLACE 100 MG CAPS 1 pill by mouth twice daily, for constipation DOCUSATE SODIUM 97651517086 Active Alina Castaneda MD PhD Active TRUETEST TEST STRP check blood sugars 3x/day GLUCOSE BLOOD 72687034028 Active Marvel Thurstonari MECHANICAL ASSEMBLY TECHNICIAN Active ACCU-CHEK ROSA UZMA Use device to check blood sugars BLOOD GLUCOSE MONITORING SUPPL 03035429678 No Longer Active Marvel Mackenzieglari LOPEZ Active ACCU-CHEK ROSA INVITR STRP use strips with device to check blood sugars 3 times daily GLUCOSE BLOOD 88526304864 No Longer Active Marvel MENDOZAP Active VERAPAMIL HCL ER 180 MG ORAL CR-TABS 1 pill by mouth twice daily, for migraine prevention VERAPAMIL HCL 83766279906 Active Alina Castaneda MD PhD Active CYCLOBENZAPRINE HCL 10 MG TABS 1 tablet by mouth three times daily, scheduled CYCLOBENZAPRINE HCL 92143899047 No Longer Active Alina Castaneda MD PhD Active HUMALOG 100 UNIT/ML SOLN Take 20 units with breakfast, 10u with lunch and suppetr. INSULIN LISPRO (HUMAN) 22031257979 No Longer Active Alina Castaneda MD PhD Active TRUETEST TEST STRP check sugars 4x/day GLUCOSE BLOOD 06353607730 No Longer Active Alina Castaneda MD PhD Active MORPHINE SULFATE 30 MG TABS 1 pill by mouth twice daily, for pain MORPHINE SULFATE 28619634721 Active Mima Erazo [employer]PORATE TRAVEL EXPERT Active ACYCLOVIR 400 MG ORAL TABS 1 pill three times daily x 5 days, for cold sore outbreak ACYCLOVIR 66470864977 No Longer Active Alina Castaneda MD PhD Active PENICILLIN V POTASSIUM 500 MG TABS 1 pill by mouth three times daily PENICILLIN V POTASSIUM 96303696019 No Longer Active Alina Castaneda MD PhD Active UROXATRAL 10 MG [id number] Take 1 tablet by mouth daily ALFUZOSIN HCL 18479432706 No Longer Active Alina Castaneda MD PhD Active THIOTHIXENE 5 MG CAPS by mouth twice a day THIOTHIXENE 70697334781 No Longer Active Alina Castaneda MD PhD Active ZYPREXA 7.5 MG TABS 1 at HS OLANZAPINE 65804803241 No Longer Active Alina Castaneda MD PhD Active BD INSULIN SYRINGE 28G X 1/2" 1 ML MISC 1 four times per day INSULIN SYRINGE-NEEDLE U-100 51260341216 Active [facility] Gurdeepglestela [facility] Active DETROL LA 4 MG [id number]-TPW Take 1 tablet by mouth daily TOLTERODINE TARTRATE 73020457205 No Longer Active Alina Castaneda MD PhD Active TERESE CONTOUR TEST STRP monitor blood sugars 3x/day GLUCOSE BLOOD 99908410700 No Longer Active Alina Castaneda MD PhD Active EQL TRUETEST TEST STRP Test blood sugar TID GLUCOSE BLOOD 47201911590 No Longer Active Alina Castaneda MD PhD Active FLUTICASONE PROPIONATE 50 MCG/ACT SUSP 2 sprays each nostril qDay x 30 days FLUTICASONE PROPIONATE 38989104740 No Longer Active Alina Castaneda MD PhD Active IBUPROFEN 200 MG TABS 1 Q 6 hr. PRN IBUPROFEN 12344813400 No Longer Active Alina Castaneda MD PhD Active NIACIN ER 500 MG CR-TABS 4 qHS (for triglycerides) NIACIN 98838888592 No Longer Active Alina Castaneda MD PhD Active ALFUZOSIN HCL ER 10 MG [id number]-NJY 1 tablet daily ALFUZOSIN HCL 11438584027 Active Vanessa Hickey MD Active SAPHRIS 5 MG SUBL by mouth twice a day ASENAPINE MALEATE 19526355830 No Longer Active Maliheh Ziglari MECHANICAL ASSEMBLY TECHNICIAN Active ACETAMINOPHEN 500 MG TABS 2 Q 6 hr. PRN ACETAMINOPHEN 82726487408 No Longer Active Maliheh Ziglari MECHANICAL ASSEMBLY TECHNICIAN Active ORPHENADRINE CITRATE ER 100 MG [id number]-VXD 1 every 12 hr. as needed ORPHENADRINE CITRATE 67702854938 No Longer Active Alina Castaneda MD PhD Active NIACIN CR 500 MG CR-TABS 2 qHS NIACIN 20823695299 No Longer Active Alina Castaneda MD PhD Active AMOXICILLIN 500 MG CAPS 2 po BID x 10 days AMOXICILLIN 43035161668 No Longer Active Alina Castaneda MD PhD Active HYDROCODONE-ACETAMINOPHEN 7.5-325 MG TABS 1 four times a day as needed for pain HYDROCODONE-ACETAMINOPHEN 19051534477 No Longer Active Alina Castaneda MD PhD Active DOXEPIN HCL 10 MG CAPS Take 1 tablet by mouth daily DOXEPIN HCL 24933665931 No Longer Active Salina ROJAS Active NAVANE 10 MG CAPS 1/2 tablet twice a day THIOTHIXENE No Longer Active Salina ROBBINSA Active CYCLOBENZAPRINE HCL 10 MG TABS 1/2 tablet by mouth every 8 hours as needed for muscle spasms CYCLOBENZAPRINE HCL 24654871289 No Longer Active Alina Castaneda MD PhD Active BACTROBAN 2 % CREAM apply to ear and nose twice daily MUPIROCIN CALCIUM 48103660524 No Longer Active Alina Castaneda MD PhD Active HYDROCODONE-ACETAMINOPHEN 5-325 MG TABS take one tablet by mouth every four hours as needed for pain HYDROCODONE-ACETAMINOPHEN 07138484107 No Longer Active Alina Castaneda MD PhD Active ZOLPIDEM TARTRATE 10 MG TABS take at bedtime ZOLPIDEM TARTRATE 83598475441 Active Alina Castaneda MD PhD Active ZYPREXA 5 MG TABS take one tablet by mouth every evening OLANZAPINE 51501471977 No Longer Active Alina Castaneda MD PhD Active ALBUTEROL SULFATE 0.083 % NEBU SOLN one vial per nebulizer TID and PRN cough/ soa ALBUTEROL SULFATE 71779700034 No Longer Active Alina Castaneda MD PhD Active GUAIFENESIN 600 MG [id number]-SNM 1 tablet by mouth twice daily if needed for cough GUAIFENESIN 94514398076 No Longer Active Marvel MARROQUIN Active AZITHROMYCIN 500 MG SOLR 1 po q day AZITHROMYCIN 55869312886 No Longer Active Alina Castaneda MD PhD Active PROMETHAZINE-CODEINE 6.25-10 MG/5ML SYRP 1 tsp po q 6 hours prn cough PROMETHAZINE-CODEINE 70542643321 No Longer Active Alina Castaneda MD PhD Active CEFDINIR 300 MG CAPS by mouth twice a day CEFDINIR 36404762108 No Longer Active Alina Castaneda MD PhD Active METFORMIN HCL 500 MG [id number]-RKE Take 3 tablets by mouth everyday METFORMIN HCL 47074957880 No Longer Active Alina Castaneda MD PhD Active LEVEMIR 100 UNIT/ML SOLN 90 units SQ qHS INSULIN DETEMIR 44238966428 No Longer Active Marvel MARROQUIN Active TOPROL XL 100 MG [id number]-KFW 1 @ HS METOPROLOL SUCCINATE 44856796484 No Longer Active Marvel MARROQUIN Active ALLOPURINOL 300 MG TABS Take one by mouth daily ALLOPURINOL 13478266274 Active Alina Castaneda MD PhD Active ZYPREXA 10 MG TABS Take one by mouth daily OLANZAPINE 05492712924 No Longer Active Alina Castaneda MD PhD Active NOVOLOG 100 UNIT/ML SOLN 40 units with every meal INSULIN ASPART 15008739594 No Longer Active Alina Castaneda MD PhD Active VERAPAMIL HCL CR 120 MG TAB CR 1 qPM VERAPAMIL HCL 25187150447 No Longer Active Salina ROJAS Active ZYPREXA 15 MG TABS Take 1 tablet by mouth daily OLANZAPINE 69132951753 No Longer Active Marvel MARROQUIN Active LISINOPRIL 20 MG TABS 1 BID LISINOPRIL 95037186208 Active Alina Castaneda MD PhD Active ALBUTEROL SULFATE (2.5 MG/3ML) 0.083% NEBU 1 neb tid and prn cough ALBUTEROL SULFATE 93106454749 No Longer Active Alina Castaneda MD PhD Active TRAVATAN Z 0.004 % SOLN 1 gtt each eye daily TRAVOPROST 68307802193 Active CRYSTAL Suarez Active LANTUS 100 UNIT/ML SOLN 60 units sq q hs INSULIN GLARGINE 95312460708 No Longer Active CRYSTAL Suarez Active ALBUTEROL SULFATE (2.5 MG/3ML) 0.083% NEBU 1 neb tid and prn cough ALBUTEROL SULFATE (2.5 MG/3ML) 0.083% NEBU 955450 ALBUTEROL SULFATE Inactive ZYPREXA 15 MG TABS Take 1 tablet by mouth daily ZYPREXA 15 MG TABS 325339 OLANZAPINE Inactive VERAPAMIL HCL CR 120 MG TAB CR 1 qPM VERAPAMIL HCL CR 120 MG TAB CR VERAPAMIL HCL Inactive ZYPREXA 10 MG TABS Take one by mouth daily ZYPREXA 10 MG TABS 818000 OLANZAPINE Inactive TOPROL XL 100 MG [id number] 1 @ HS TOPROL XL 100 MG PT23Y-FCJ METOPROLOL SUCCINATE Inactive LEVEMIR 100 UNIT/ML SOLN 90 units SQ qHS LEVEMIR 100 UNIT/ML SOLN INSULIN DETEMIR Inactive PROMETHAZINE-CODEINE 6.25-10 MG/5ML SYRP 1 tsp po q 6 hours prn cough PROMETHAZINE-CODEINE 6.25-10 MG/5ML SYRP 867231 PROMETHAZINE- CODEINE Inactive GUAIFENESIN 600 MG GQ86A-MOS 1 tablet by mouth twice daily if needed for cough GUAIFENESIN 600 MG [id number]-HDV GUAIFENESIN Inactive ALBUTEROL SULFATE 0.083 % NEBU SOLN one vial per nebulizer TID and PRN cough/ soa ALBUTEROL SULFATE 0.083 % NEBU SOLN 757699 ALBUTEROL SULFATE Inactive ZYPREXA 5 MG TABS take one tablet by mouth every evening ZYPREXA 5 MG TABS 530625 OLANZAPINE Inactive HYDROCODONE-ACETAMINOPHEN 5-325 MG TABS take one tablet by mouth every four hours as needed for pain HYDROCODONE-ACETAMINOPHEN 5-325 MG TABS 389856 HYDROCODONE-ACETAMINOPHEN Inactive BACTROBAN 2 % CREAM apply to ear and nose twice daily BACTROBAN 2 % CREAM 026612 MUPIROCIN CALCIUM Inactive CYCLOBENZAPRINE HCL 10 MG TABS 1/2 tablet by mouth every 8 hours as needed for muscle spasms CYCLOBENZAPRINE HCL 10 MG TABS 752887 CYCLOBENZAPRINE HCL Inactive NAVANE 10 MG CAPS 1/2 tablet twice a day NAVANE 10 MG CAPS THIOTHIXENE Inactive DOXEPIN HCL 10 MG CAPS Take 1 tablet by mouth daily DOXEPIN HCL 10 MG CAPS 1948113 DOXEPIN HCL Inactive HYDROCODONE-ACETAMINOPHEN 7.5-325 MG TABS 1 four times a day as needed for pain HYDROCODONE-ACETAMINOPHEN 7.5-325 MG TABS 031017 HYDROCODONE-ACETAMINOPHEN Inactive NIACIN CR 500 MG CR-TABS 2 qHS NIACIN CR 500 MG CR- TABS NIACIN Inactive ORPHENADRINE CITRATE ER 100 MG [id number]-KMP 1 every 12 hr. as needed ORPHENADRINE CITRATE ER 100 MG [id number]-ZFL ORPHENADRINE CITRATE Inactive ACETAMINOPHEN 500 MG TABS 2 Q 6 hr. PRN ACETAMINOPHEN 500 MG TABS 793642 ACETAMINOPHEN Inactive SAPHRIS 5 MG SUBL by mouth twice a day SAPHRIS 5 MG SUBL ASENAPINE MALEATE Inactive NIACIN ER 500 MG CR-TABS 4 qHS (for triglycerides) NIACIN ER 500 MG CR-TABS NIACIN Inactive IBUPROFEN 200 MG TABS 1 Q 6 hr. PRN IBUPROFEN 200 MG TABS 333994 IBUPROFEN Inactive FLUTICASONE PROPIONATE 50 MCG/ACT SUSP 2 sprays each nostril qDay x 30 days FLUTICASONE PROPIONATE 50 MCG/ACT SUSP 872905 FLUTICASONE PROPIONATE Inactive EQL TRUETEST TEST STRP Test blood sugar TID EQL TRUETEST TEST STRP GLUCOSE BLOOD Inactive TERESE CONTOUR TEST STRP monitor blood sugars 3x/day TERESE CONTOUR TEST STRP GLUCOSE BLOOD Inactive DETROL LA 4 MG [id number] Take 1 tablet by mouth daily DETROL LA 4 MG RE14L-ZBW TOLTERODINE TARTRATE Inactive ZYPREXA 7.5 MG TABS 1 at HS ZYPREXA 7.5 MG TABS 753846 OLANZAPINE Inactive THIOTHIXENE 5 MG CAPS by mouth twice a day THIOTHIXENE 5 MG CAPS 177265 THIOTHIXENE Inactive UROXATRAL 10 MG GH55V-XYP Take 1 tablet by mouth daily UROXATRAL 10 MG [id number]-KZQ ALFUZOSIN HCL Inactive ACYCLOVIR 400 MG ORAL TABS 1 pill three times daily x 5 days, for cold sore outbreak ACYCLOVIR 400 MG ORAL TABS 781232 ACYCLOVIR Inactive TRUETEST TEST STRP check sugars 4x/day TRUETEST TEST STRP GLUCOSE BLOOD Inactive HUMALOG 100 UNIT/ML SOLN Take 20 units with breakfast, 10u with lunch and suppetr. HUMALOG 100 UNIT/ML SOLN INSULIN LISPRO ( HUMAN) Inactive CYCLOBENZAPRINE HCL 10 MG TABS 1 tablet by mouth three times daily, scheduled CYCLOBENZAPRINE HCL 10 MG TABS 783203 CYCLOBENZAPRINE HCL Inactive ACCU-CHEK ROSA INVITR STRP use strips with device to check blood sugars 3 times daily ACCU-CHEK ROSA INVITR STRP GLUCOSE BLOOD Inactive ACCU-CHEK ROSA UZMA Use device to check blood sugars ACCU-CHEK ROSA UZMA BLOOD GLUCOSE MONITORING SUPPL Inactive FLUVOXAMINE MALEATE 100 MG ORAL TABS Take 1/2 tab at noon FLUVOXAMINE MALEATE 100 MG ORAL TABS 223833 FLUVOXAMINE MALEATE Inactive FLUVOXAMINE MALEATE 100 MG TABS Take one (1) tablet by mouth am, 1/2 at noon FLUVOXAMINE MALEATE 100 MG TABS 244910 FLUVOXAMINE MALEATE Inactive BACTROBAN 2 % CREAM Apply to affected area BID for up to 10 days BACTROBAN 2 % CREAM 576931 MUPIROCIN CALCIUM Inactive NOVOFINE 32G X 6 MM MISC use one four times per day NOVOFINE 32G X 6 MM MISC INSULIN PEN NEEDLE Inactive TRAZODONE HCL 100 MG ORAL TABS 1 tab by mouth for sleep TRAZODONE HCL 100 MG ORAL TABS 000825 TRAZODONE HCL Inactive LOVAZA 1 GM CAPS 4 daily (for triglycerides) LOVAZA 1 GM CAPS 779550 MYUEH-5-DOTZ ETHYL ESTERS Inactive METFORMIN HCL ER 500 MG TX64E-DKW Take three tablets by mouth everyday METFORMIN HCL ER 500 MG KJ19H-HJL METFORMIN HCL Inactive METOPROLOL SUCCINATE 100 MG VF32X-PQD 1 by mouth daily for blood pressure METOPROLOL SUCCINATE 100 MG LN22N-AAB METOPROLOL SUCCINATE Inactive AMITIZA 24 MCG ORAL CAPS Take one capsule BID for constipation. AMITIZA 24 MCG ORAL CAPS LUBIPROSTONE Inactive TOLTERODINE TARTRATE 2 MG TABS 1 pill twice daily, for bladder TOLTERODINE TARTRATE 2 MG TABS 305090 TOLTERODINE TARTRATE Inactive CEFDINIR 300 MG CAPS by mouth twice a day CEFDINIR 300 MG CAPS 159257 CEFDINIR Inactive AZITHROMYCIN 500 MG SOLR 1 po q day AZITHROMYCIN 500 MG SOLR 62954263787 AZITHROMYCIN Inactive AMOXICILLIN 500 MG CAPS 2 po BID x 10 days AMOXICILLIN 500 MG CAPS 958346 AMOXICILLIN Inactive PENICILLIN V POTASSIUM 500 MG TABS 1 pill by mouth three times daily PENICILLIN V POTASSIUM 500 MG TABS 537974 PENICILLIN V POTASSIUM Inactive KEFLEX 500 MG CAP 1 po BID x 7 days KEFLEX 500 MG CAP 676655 CEPHALEXIN Inactive Immunizations Vaccine Administration Date Value [...] Fluvirin, Fluarix, Agriflu(>=18 yo)) Fluzone (>3 yrs.) [EOS705] Influenza, seasonal, injectable pneumococcal immunization administered Pneumovax [...] MICROALBUMIN - Chemistry sodium, serum 137 mmol/L 948-368 3659/05/19 potassium, serum 5.2 mmol/L 3.5-5.2 chloride, serum [...] Panel - Chemistry sodium, serum 137 mmol/L 184-439 9060/10/12 potassium, serum 4.8 mmol/L 3.5-5.2 chloride, serum 102 mmol/L 98-107 carbon dioxide, venous blood 27.6 mmol/L 21.0-32.0 blood glucose 168 mg/dL 65-110 calcium, serum 9.0 mg/dL 8.5-10.1 urea nitrogen, blood 15 mg/dL 7-18 creatinine, serum 1.04 mg/dL 0.55-1.30 sodium, serum 138 mmol/L 725-071 3349/11/11 potassium, serum 4.7 mmol/L 3.5-5.2 chloride, serum [...] % 11.6-14.8 platelet count 252 10^3/MM^3 10*3/mm3 690-875 8019/10/12 leukocyte count, blood 5.8 10^3/MM^3 10*3/mm3 4.6-10.2 [...] 240 10^3/MM^3 10*3/mm3 142-424 Lab Report: Chlamydia/GC APTIMA/58464, HIV-1/2 Agn/Dominga/73558, RPR (DX) W ... - Chemistry hepatitis B surface antigen NON-REACTIVE NON-REACTIVE Lab Report: Chlamydia/GC APTIMA/34566, HIV-1/2 Agn/Dominga/13697, RPR (DX) W ... - Lab chlamydia DNA probe NOT DETECTED NOT DETECTED Lab Report: Chlamydia/GC APTIMA/11079, HIV-1/2 Agn/Dominga/42325, RPR (DX) W ... - Microbiology Neisseria gonorrhoeae DNA probe NOT DETECTED NOT DETECTED Lab Report: Chlamydia/GC APTIMA/05845, HIV-1/2 Agn/Dominga/58906, RPR (DX) W ... - Serology rapid plasma reagin antibody titer NON-REACTIVE NON-REACTIVE Lab Report: HGBA1C - Chemistry hemoglobin A1C, blood, as % of total hemoglobin 6.1 % 4.3-6.0 hemoglobin A1C, blood, as % of total hemoglobin 6.3 % 4.3-6.0 Lab Report: Lipid Panel, HEPATIC PANEL, MICROALBUMIN, CBC - Chemistry cholesterol, serum 131 mg/dL 057-695 6240/06/03 triglyceride, serum, fasting 383 mg/dL 30-200 HDL [...] 4.7 mg/dL 2.6-7.2 cholesterol, serum 142 mg/dL 684-806 6918/06/26 triglyceride, serum, fasting 272 mg/dL 30-200 HDL [...] negative Encounters Code Encounter Date Provider Facility CPT-17479 Level 3 Est. Patient 14:39:00 [employer]ODUCTION ENGINEER Vanessa Hickey MD [facility] CPT-81262 Level 2 Est. Patient 18:43:34 CDT Mima Erazo [facility] CPT-71260 Level 3 Est. Patient 16:22:09 CDT Cherelle Avila [facility] CPT-03960 Level 4 Est. Patient 17:55:14 CDT Mima Erazo [facility] CPT-76305 Level 2 Est. Patient 17:13:21 CDT Alina Castaneda MD PhD [facility] CPT-06408 Level 3 Est. Patient 14:46:15 CDT Vanessa Hickey MD [facility] CPT-09595 Level 3 Est. Patient 09:34:56 CDT Alina Castaneda MD [facility]-63494 Level 3 Est. Patient 21:40:19 CDT Mima Erazo [place] [facility]-44488 Level 3 Est. Patient 09:26:[address] [facility]-80281 Level 3 Est. Patient 12:36:43 CDT Vanessa Hickey MD -40130 Level 3 Est. Patient 12:57:49 CDT Vanessa Hickey MD -43099 Level 3 Est. Patient 00:28:25 CDT Alina Castaneda MD [facility]11126 Level 2 Est. Patient 12:52:14 CDT Alina Castaneda MD [facility]-75441 Level 3 Est. Patient 11:51:18 [employer]LE[employer] PRODUCTION ENGINEER Alina Castaneda MD [facility] CPT-51221 Level 3 Est. Patient 10:09:22 [employer]ROLEUM PRODUCTION ENGINEER Alina Castaneda MD [facility]-33071 Level 3 Est. Patient 14:36:26 [employer]ROLEUM PRODUCTION ENGINEER Marvel Charles [facility] CPT-67837 Level 3 Est. Patient 13:34:47 [employer]ROLEUM PRODUCTION ENGINEER Alina Castaneda MD [facility]-46337 Level 3 Est. Patient 19:52:08 [employer]ROLEUM PRODUCTION ENGINEER Alina Castaneda MD [facility] CPT-16639 Level 3 Est. Patient 10:01:51 [employer]ROLEUM PRODUCTION ENGINEER Marvel Charles [facility]-28389 Level 3 Est. Patient 21:54:06 CDT Vanessa Hickey MD -88495 Level 3 Est. Patient 08:54:46 CDT Alina Castaneda MD [facility]-97137 Level 3 Est. Patient 09:32:11 CDT Marvel Charles [facility]-35061 Level 3 Est. Patient 12:02:49 CDT Alina Castaneda MD [facility]-83766 Level 3 Est. Patient 19:17:33 CDT Alina Castaneda MD [facility]-94801 Level 3 Est. Patient 13:19:10 CDT Marvel Gurdeepajayestela [facility]-10721 Level 3 Est. Patient 08:20:05 CDT Alina Castaneda MD [facility]-93344 Level 3 Est. Patient 15:17:18 CDT Alina Castaneda MD [facility]-10613 Level 3 Est. Patient 14:25:36 [employer]LE[employer] PRODUCTION ENGINEER Marvel Charles [facility]-92204 Level 3 Est. Patient 10:09:15 [employer]ROLEUM PRODUCTION ENGINEER [facility]41361 Level 3 Est. Patient 21:28:43 CDT Alina Castaneda MD [facility]-58348 Level 3 Est. Patient 15:20:11 CDT Marvel Araceli [facility]-24198 Level 4 Est. Patient 19:08:12 CDT Alina Castaneda MD [facility]-48606 Level 3 Est. Patient 15:06:39 CDT Brookslashondanivia Araceli [facility]-23234 Level 4 Est. Patient 17:48:15 CDT Alina Castaneda MD [facility]-08535 Level 3 Est. Patient 14:53:49 CDT Alina Castaneda MD [facility]-38701 Level 3 Est. Patient 09:35:16 CDT Alina Castaneda MD [facility]-23297 Level 3 Est. Patient 12:23:22 CDT Alina Castaneda MD [facility]94969 Level 3 Est. Patient 16:19:15 CDT Alina Castaneda MD [facility]-87380 Level 3 Est. Patient 21:39:56 [employer]ROLEUM PRODUCTION ENGINEER Alina Castaneda MD [facility]-53489 Level 4 Est. Patient 14:12:56 [employer]ROLEUM PRODUCTION ENGINEER Alina Castaneda MD [facility]32697 Level 2 Est. Patient 15:34:57 [employer]ROLEUM PRODUCTION ENGINEER Alina Castaneda MD [facility]-08509 Level 3 Est. Patient 12:17:04 [employer]ROLEUM PRODUCTION ENGINEER Alina Castaneda MD [facility]-56331 Level 3 Est. Patient 09:18:18 [employer]ROLEUM PRODUCTION ENGINEER Marvel Charles [facility]-67994 Level 2 Est. Patient 21:50:24 CDT Alina Castaneda MD [facility]-09064 Level 3 Est. Patient 09:17:28 CDT Marvel Charles [facility]-57418 Level 4 Est. Patient 18:54:02 CDT Alina Castaneda MD [facility]-[id number] Level 3 Est. Patient 10:47:10 CDT Alina Castaneda MD [facility] Level 3 Est. Patient 09:22:20 CDT Marvel Charles [facility]-50838 Level 3 Est. Patient 16:39:43 CDT Marvel Charles [facility] CPT-69025 Level 3 Est. Patient 16:05:16 CDT Alina Castaneda MD [facility] CPT-81255 Level 3 Est. Patient 00:29:15 CDT Alina Castaneda MD [facility] CPT-37594 Level 3 Est. Patient 10:49:22 [employer] Marvel Thurstonestela [facility] CPT-47395 Level 3 Est. Patient 21:30:19 [employer]INE[employer] Alina Castaneda MD [facility] CPT-50763 Level 4 Est. Patient 17:04:11 [employer] ENGINEER Marvel Thurstonestela [facility] CPT-63871 Level 3 Est. Patient 15:34:11 [employer] ENGINEER [facility]4640 Level 2 Est. Patient 12:51:58 [employer]INEER Alina Castaneda MD [facility] CPT-54821 Level 3 Est. Patient 13:20:01 [employer] Alina Castaneda MD [facility] CPT-27866 Level 3 Est. Patient 09:23:35 CDT Alina Castaneda MD [facility] Procedures Code Procedure Name Date Entry Date Standard Description CPT-82303 Bladder Scan 14:39:01 [employer] CPT-TCMM Transitional Care Mgmt-Moderate 10:30:19 [employer] CPT-28879 Bladder Scan 12:36:44 CDT CPT-95622 Bladder Scan 21:54:06 CDT CPT-G0008 Administration of Influenza Virus Vaccine 13:05:26 CDT CPT-17948 Fluzone Quadrivalent Intramuscular Suspension 0.5 ML 13: 05:26 CDT CPT-51036 Administration single or combination vaccine inc oral 11 :49:51 CDT CPT-94177 Pneumovax 11:49:51 CDT CPT-79522 Ribs unilateral 2V 12:37:22 [employer] CPT-07233 Chest 2V Frontal and Lat 17:15:26 CDT CPT-40021 Abx/Therapy Injection 18:54:02 CDT CPT-J0696 Rocephin 1000 mg (Ceftriaxone) 16:00:32 CDT CPT-10956 Chest 2V Frontal and Lat 15:26:45 CDT CPT-16387 Chest 2V Frontal and Lat 10:23:27 CDT CPT-02782 Venipuncture Draw Fee 10:11:00 CDT CPT-60538 Administration single or combination vaccine inc oral 11 :56:38 CDT CPT-42686 Influenza split virus > age 3 11:56:38 CDT CPT-54049 Venipuncture Draw Fee 08:49:54 [employer] CPT-84490 EKG Trac and Interp 17:54:19 [employer] 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
--- OUTSIDE RECORDS SUMMARY | 2018-07-02 14:14 | XMS REPORT | Clinical Summary ---
Author Author Admin, TERELL Organization [facility] Address Unknown Phone Unavailable Allergies, Adverse 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 Erazo CAR SALTER Benign paroxysmal positional vertigo Vertigo, benign paroxysmal position 386.11 Inactive Mima Erazo CAR SALTER Benign paroxysmal positional vertigo High-risk sexual behavior V69.2 Active Alina Castaneda MD PhD High-risk sexual behavior Erectile dysfunction 302.72 Active Alina Castaneda MD PhD Psychosexual dysfunction with inhibited sexual excitement Constipation 564.00 Active Alina Castaneda MD PhD Constipation, unspecified Skin lesion 709.9 Active Alina Castaneda MD PhD Unspecified disorder of skin and subcutaneous tissue Malaise and fatigue 780.79 Active Cherelle Speaks CAR SALTER Other malaise and fatigue Diarrhea 787.91 Active Cherelle Speaks CAR SALTER Diarrhea PHARYNGITIS 462 Active Cherelle Speaks CAR SALTER Acute pharyngitis Colitis 558.9 Active Mima Erazo CAR SALTER Other and unspecified noninfectious gastroenteritis and colitis WOUND, OPEN, NOSE ICD-873.20 Inactive Alina Castaneda MD PhD DIABETES, TYPE 2 ICD-250.00 Inactive Alina Castaneda MD PhD HYPERTENSION ICD-401.9 Inactive Alina Castaneda MD PhD URI ICD-465.9 Inactive Alina Castaneda MD PhD CHEST PAIN ICD-786.50 Inactive Alina Castaneda MD PhD FH STROKE ICD-V17.1 Inactive Marvel Charles PROVIDER RELATIONS MANAGER FATIGUE ICD-780.79 Inactive Alina Castaneda MD PhD [...] Take one capsule BID for constipation LUBIPROSTONE 51187240638 Active Mima Erazo CAR SALTER Active LEVEMIR FLEXTOUCH 100 UNIT/ML SC SOPN 75 units SQ each evening, for diabetes INSULIN DETEMIR 36758120827 Active Salina ROBBINSA Active TRUEPLUS LANCETS 30G MISC 3 a day LANCETS 73964215009 Active Marvel Charles PROVIDER RELATIONS MANAGER Active TOLTERODINE TARTRATE 2 MG TABS 1 pill twice daily, for bladder TOLTERODINE TARTRATE 32180190504 No Longer Active Vanessa Hickey MD Active AMITIZA 24 MCG ORAL CAPS Take one capsule BID for constipation. LUBIPROSTONE 02621854418 No Longer Active Vanessa Hickey MD Active LOMOTIL 2.5-0.025 MG ORAL TABS take 1-2 tabs PO after each stool, no more than 8 in 24 hours DIPHENOXYLATE-ATROPINE 32628934570 Active Grace ROJAS Active FLUVOXAMINE MALEATE 100 MG ORAL TABS take one tab every AM et HS, and take 1/ 2 tab at noon FLUVOXAMINE MALEATE 85649494843 Active Grace Nascimento RMA Active METOPROLOL SUCCINATE 100 MG [id number] 1 by mouth daily for blood pressure METOPROLOL SUCCINATE 58932937436 No Longer Active Grace Nascimento RMA Active METFORMIN HCL ER 500 MG [id number] Take three tablets by mouth everyday METFORMIN HCL 46884790371 No Longer Active Grace Azam RMA Active LOVAZA 1 GM CAPS 4 daily (for triglycerides) OMEGA-3- ACID ETHYL ESTERS 92489341064 No Longer Active Grace Azam RMA Active TRAZODONE HCL 100 MG ORAL TABS 1 tab by mouth for sleep TRAZODONE HCL 92600008820 No Longer Active Gracekailee Nelsonb RMA Active NOVOFINE 32G X 6 MM MISC use one four times per day INSULIN PEN NEEDLE 08081596924 No Longer Active Grace Nascimento RMA Active BACTROBAN 2 % CREAM Apply to affected area BID for up to 10 days MUPIROCIN CALCIUM 19012501459 No Longer Active Grace Nascimento RMA Active ZOFRAN 4 MG TABS 1 po q4hr PRN Nausea ONDANSETRON HCL 18893036133 Active Salina Han RMA Active KEFLEX 500 MG CAP 1 po BID x 7 days CEPHALEXIN 00060581667 No Longer Active Cherelle Avila CAR SALTER Active FLUVOXAMINE MALEATE 100 MG TABS Take one (1) tablet by mouth am, 1/2 at noon FLUVOXAMINE MALEATE 59755017805 No Longer Active Mima Aguilarliudmila CAR SALTER Active CORICIDIN HBP CONGESTION/COUGH 10-200 MG ORAL CAPS Take as directed on box as needed for cold/flu symptoms DEXTROMETHORPHAN-GUAIFENESIN 94107043198 Active Cherelle Speaks CAR SALTER Active OMEGA-3 300 MG ORAL CAPS 4 caps by mouth daily OMEGA-3 FATTY ACIDS 93041309967 Active Cherelle Speaks CAR SALTER Active FLUVOXAMINE MALEATE 100 MG ORAL TABS Take 1/2 tab at noon FLUVOXAMINE MALEATE 41742771651 No Longer Active Cherelle Avila ALBAN Active [facility] LUBRICANT EYE DROPS 0.4-0.3 % OPHTH SOLN POLYETHYL GLYCOL-PROPYL GLYCOL 24044659018 Active Mima Yoliudmila CAR SALTER Active CLONAZEPAM 1 MG TABS 1/2 pill by mouth three times daily CLONAZEPAM 00816715251 Active Alina Castaneda MD PhD Active MIRALAX POWD 17g by mouth daily, for constipation POLYETHYLENE GLYCOL 3350 57106394994 Active Alina Castaneda MD PhD Active HYDROCODONE-ACETAMINOPHEN 5-325 MG TABS 2 tabs by mouth three times daily for pain HYDROCODONE-ACETAMINOPHEN 26859123365 Active Mima Aguilarliudmila REYESN Active HUMALOG KWIKPEN 100 UNIT/ML SC SOPN 20 units with breakfast, 10 units with lunch, 10 units with dinner, for diabetes INSULIN LISPRO (HUMAN ) 68168540426 Active Alina Castaneda MD PhD Active LATUDA 120 MG ORAL TABS 1 pill by mouth nightly LURASIDONE HCL 05077523877 Active Alina Castaneda MD PhD Active COLACE 100 MG CAPS 1 pill by mouth twice daily, for constipation DOCUSATE SODIUM 96992660789 Active Alina Castaneda MD PhD Active TRUETEST TEST STRP check blood sugars 3x/day GLUCOSE BLOOD 64877400101 Active Marvel Mackenzieglari PROVIDER RELATIONS MANAGER Active ACCU-CHEK ROSA UZMA Use device to check blood sugars BLOOD GLUCOSE MONITORING SUPPL 27325031384 No Longer Active Maliheh Ziglari PROVIDER RELATIONS MANAGER Active ACCU-CHEK ROSA INVITR STRP use strips with device to check blood sugars 3 times daily GLUCOSE BLOOD 36741059180 No Longer Active Maliheh 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 PROVIDER RELATIONS MANAGER Active VERAPAMIL HCL ER 180 MG ORAL CR-TABS 1 pill by mouth twice daily, for migraine prevention VERAPAMIL HCL 19690907019 Active Alina Castaneda MD PhD Active CYCLOBENZAPRINE HCL 10 MG TABS 1 tablet by mouth three times daily, scheduled CYCLOBENZAPRINE HCL 86488791362 No Longer Active Alina Castaneda MD PhD Active HUMALOG 100 UNIT/ML SOLN Take 20 units with breakfast, 10u with lunch and suppetr. INSULIN LISPRO (HUMAN) 73617188013 No Longer Active Alina Castaneda MD PhD Active TRUETEST TEST STRP check sugars 4x/day GLUCOSE BLOOD 40293259255 No Longer Active Alina Castaneda MD PhD Active MORPHINE SULFATE 30 MG TABS 1 pill by mouth twice daily, for pain MORPHINE SULFATE 35872769876 Active Mima Erazo CAR SALTER Active ACYCLOVIR 400 MG ORAL TABS 1 pill three times daily x 5 days, for cold sore outbreak ACYCLOVIR 53501390280 No Longer Active Alina Castaneda MD PhD Active PENICILLIN V POTASSIUM 500 MG TABS 1 pill by mouth three times daily PENICILLIN V POTASSIUM 77349131725 No Longer Active Alina Castaneda MD PhD Active UROXATRAL 10 MG [id number]-NCU Take 1 tablet by mouth daily ALFUZOSIN HCL 14386050619 No Longer Active Alina Castaneda MD PhD Active THIOTHIXENE 5 MG CAPS by mouth twice a day THIOTHIXENE 26598280068 No Longer Active Alina Castaneda MD PhD Active ZYPREXA 7.5 MG TABS 1 at HS OLANZAPINE 08965697038 No Longer Active Alina Castaneda MD PhD Active BD INSULIN SYRINGE 28G X 1/2" 1 ML MISC 1 four times per day INSULIN SYRINGE-NEEDLE U-100 71858680230 Active Marvel Mackenzieglestlea PROVIDER RELATIONS MANAGER Active DETROL LA 4 MG [id number]-NAL Take 1 tablet by mouth daily TOLTERODINE TARTRATE 77211991134 No Longer Active Alina Castaneda MD PhD Active TERESE CONTOUR TEST STRP monitor blood sugars 3x/day GLUCOSE BLOOD 30502984073 No Longer Active Alina Castaneda MD PhD Active EQL TRUETEST TEST STRP Test blood sugar TID GLUCOSE BLOOD 68516682759 No Longer Active Alina Castaneda MD PhD Active FLUTICASONE PROPIONATE 50 MCG/ACT SUSP 2 sprays each nostril qDay x 30 days FLUTICASONE PROPIONATE 73258557688 No Longer Active Alina Castaneda MD PhD Active IBUPROFEN 200 MG TABS 1 Q 6 hr. PRN IBUPROFEN 60309149411 No Longer Active Alina Castaneda MD PhD Active NIACIN ER 500 MG CR-TABS 4 qHS (for triglycerides) NIACIN 94604694990 No Longer Active Alina Castaneda MD PhD Active ALFUZOSIN HCL ER 10 MG PC64C-HMZ 1 tablet daily ALFUZOSIN HCL 60989404370 Active Vanessa Hickey MD Active SAPHRIS 5 MG SUBL by mouth twice a day ASENAPINE MALEATE 49744272109 No Longer Active Maliheh Ziglari PROVIDER RELATIONS MANAGER Active ACETAMINOPHEN 500 MG TABS 2 Q 6 hr. PRN ACETAMINOPHEN 85839531819 No Longer Active Maliheh Ziglari PROVIDER RELATIONS MANAGER Active ORPHENADRINE CITRATE ER 100 MG [id number] 1 every 12 hr. as needed ORPHENADRINE CITRATE 51048081380 No Longer Active Alina Castaneda MD PhD Active NIACIN CR 500 MG CR-TABS 2 qHS NIACIN 05550908571 No Longer Active Alina Castaneda MD PhD Active AMOXICILLIN 500 MG CAPS 2 po BID x 10 days AMOXICILLIN 40585129459 No Longer Active Alina Castaneda MD PhD Active HYDROCODONE-ACETAMINOPHEN 7.5-325 MG TABS 1 four times a day as needed for pain HYDROCODONE-ACETAMINOPHEN 47712152008 No Longer Active Alina Castaneda MD PhD Active DOXEPIN HCL 10 MG CAPS Take 1 tablet by mouth daily DOXEPIN HCL 35361304735 No Longer Active Salina Han [facility] Active NAVANE 10 MG CAPS 1/2 tablet twice a day THIOTHIXENE No Longer Active Salina Han [facility] Active CYCLOBENZAPRINE HCL 10 MG TABS 1/2 tablet by mouth every 8 hours as needed for muscle spasms CYCLOBENZAPRINE HCL 60640855921 No Longer Active Alina Castaneda MD PhD Active BACTROBAN 2 % CREAM apply to ear and nose twice daily MUPIROCIN CALCIUM 12515406632 No Longer Active Alina Castaneda MD PhD Active HYDROCODONE-ACETAMINOPHEN 5-325 MG TABS take one tablet by mouth every four hours as needed for pain HYDROCODONE-ACETAMINOPHEN 96128890271 No Longer Active Alina Castaneda MD PhD Active ZOLPIDEM TARTRATE 10 MG TABS take at bedtime ZOLPIDEM TARTRATE 64457469500 Active Alina Castaneda MD PhD Active ZYPREXA 5 MG TABS take one tablet by mouth every evening OLANZAPINE 26698610427 No Longer Active Alina Castaneda MD PhD Active ALBUTEROL SULFATE 0.083 % NEBU SOLN one vial per nebulizer TID and PRN cough/ soa ALBUTEROL SULFATE 56280837927 No Longer Active Alina Castaneda MD PhD Active GUAIFENESIN 600 MG [id number]-AAS 1 tablet by mouth twice daily if needed for cough GUAIFENESIN 72185931263 No Longer Active Marvel MENDOZAP Active AZITHROMYCIN 500 MG SOLR 1 po q day AZITHROMYCIN 58522535994 No Longer Active Alina Castaneda MD PhD Active PROMETHAZINE-CODEINE 6.25-10 MG/5ML SYRP 1 tsp po q 6 hours prn cough PROMETHAZINE-CODEINE 76789884800 No Longer Active Alina Castaneda MD PhD Active CEFDINIR 300 MG CAPS by mouth twice a day CEFDINIR 21688437934 No Longer Active Alina Castaneda MD PhD Active METFORMIN HCL 500 MG IL99Y-IHT Take 3 tablets by mouth everyday METFORMIN HCL 79975823251 No Longer Active Alina Castaneda MD PhD Active LEVEMIR 100 UNIT/ML SOLN 90 units SQ qHS INSULIN DETEMIR 31515046531 No Longer Active Marvel MARROQUIN Active TOPROL XL 100 MG [id number] 1 @ HS METOPROLOL SUCCINATE 21381670883 No Longer Active Marvel MARROQUIN Active ALLOPURINOL 300 MG TABS Take one by mouth daily ALLOPURINOL 84869728474 Active Alina Castaneda MD PhD Active ZYPREXA 10 MG TABS Take one by mouth daily OLANZAPINE 61593890251 No Longer Active Alina Castaneda MD PhD Active NOVOLOG 100 UNIT/ML SOLN 40 units with every meal INSULIN ASPART 03196390804 No Longer Active Alina Castaneda MD PhD Active VERAPAMIL HCL CR 120 MG TAB CR 1 qPM VERAPAMIL HCL 29753044517 No Longer Active Salina ROJAS Active ZYPREXA 15 MG TABS Take 1 tablet by mouth daily OLANZAPINE 61312909525 No Longer Active Marvel MARROQUIN Active LISINOPRIL 20 MG TABS 1 BID LISINOPRIL 32340989427 Active Alina Castaneda MD PhD Active ALBUTEROL SULFATE (2.5 MG/3ML) 0.083% NEBU 1 neb tid and prn cough ALBUTEROL SULFATE 97575874023 No Longer Active Alina Castaneda MD PhD Active TRAVATAN Z 0.004 % SOLN 1 gtt each eye daily TRAVOPROST 40040275644 Active CRYSTAL Suarez Active LANTUS 100 UNIT/ML SOLN 60 units sq q hs INSULIN GLARGINE 68576750389 No Longer Active CRYSTAL Suarez Active ALBUTEROL SULFATE (2.5 MG/3ML) 0.083% NEBU 1 neb tid and prn cough ALBUTEROL SULFATE (2.5 MG/3ML) 0.083% NEBU 405369 ALBUTEROL SULFATE Inactive ZYPREXA 15 MG TABS Take 1 tablet by mouth daily ZYPREXA 15 MG TABS 614227 OLANZAPINE Inactive VERAPAMIL HCL CR 120 MG TAB CR 1 qPM VERAPAMIL HCL CR 120 MG TAB CR VERAPAMIL HCL Inactive ZYPREXA 10 MG TABS Take one by mouth daily ZYPREXA 10 MG TABS 440962 OLANZAPINE Inactive TOPROL XL 100 MG [id number] 1 @ HS TOPROL XL 100 MG AH00I-GQQ METOPROLOL SUCCINATE Inactive LEVEMIR 100 UNIT/ML SOLN 90 units SQ qHS LEVEMIR 100 UNIT/ML SOLN INSULIN DETEMIR Inactive PROMETHAZINE-CODEINE 6.25-10 MG/5ML SYRP 1 tsp po q 6 hours prn cough PROMETHAZINE-CODEINE 6.25-10 MG/5ML SYRP 528385 PROMETHAZINE- CODEINE Inactive GUAIFENESIN 600 MG [id number]-HCU 1 tablet by mouth twice daily if needed for cough GUAIFENESIN 600 MG BH15H-JAO GUAIFENESIN Inactive ALBUTEROL SULFATE 0.083 % NEBU SOLN one vial per nebulizer TID and PRN cough/ soa ALBUTEROL SULFATE 0.083 % NEBU SOLN 234512 ALBUTEROL SULFATE Inactive ZYPREXA 5 MG TABS take one tablet by mouth every evening ZYPREXA 5 MG TABS 170552 OLANZAPINE Inactive HYDROCODONE-ACETAMINOPHEN 5-325 MG TABS take one tablet by mouth every four hours as needed for pain HYDROCODONE-ACETAMINOPHEN 5-325 MG TABS 127041 HYDROCODONE-ACETAMINOPHEN Inactive BACTROBAN 2 % CREAM apply to ear and nose twice daily BACTROBAN 2 % CREAM 611173 MUPIROCIN CALCIUM Inactive CYCLOBENZAPRINE HCL 10 MG TABS 1/2 tablet by mouth every 8 hours as needed for muscle spasms CYCLOBENZAPRINE HCL 10 MG TABS 430666 CYCLOBENZAPRINE HCL Inactive NAVANE 10 MG CAPS 1/2 tablet twice a day NAVANE 10 MG CAPS THIOTHIXENE Inactive DOXEPIN HCL 10 MG CAPS Take 1 tablet by mouth daily DOXEPIN HCL 10 MG CAPS 0843460 DOXEPIN HCL Inactive HYDROCODONE-ACETAMINOPHEN 7.5-325 MG TABS 1 four times a day as needed for pain HYDROCODONE-ACETAMINOPHEN 7.5-325 MG TABS 289075 HYDROCODONE-ACETAMINOPHEN Inactive NIACIN CR 500 MG CR-TABS 2 qHS NIACIN CR 500 MG CR- TABS NIACIN Inactive ORPHENADRINE CITRATE ER 100 MG [id number] 1 every 12 hr. as needed ORPHENADRINE CITRATE ER 100 MG [id number] ORPHENADRINE CITRATE Inactive ACETAMINOPHEN 500 MG TABS 2 Q 6 hr. PRN ACETAMINOPHEN 500 MG TABS 773612 ACETAMINOPHEN Inactive SAPHRIS 5 MG SUBL by mouth twice a day SAPHRIS 5 MG SUBL ASENAPINE MALEATE Inactive NIACIN ER 500 MG CR-TABS 4 qHS (for triglycerides) NIACIN ER 500 MG CR-TABS NIACIN Inactive IBUPROFEN 200 MG TABS 1 Q 6 hr. PRN IBUPROFEN 200 MG TABS 614260 IBUPROFEN Inactive FLUTICASONE PROPIONATE 50 MCG/ACT SUSP 2 sprays each nostril qDay x 30 days FLUTICASONE PROPIONATE 50 MCG/ACT SUSP 975605 FLUTICASONE PROPIONATE Inactive EQL TRUETEST TEST STRP Test blood sugar TID EQL TRUETEST TEST STRP GLUCOSE BLOOD Inactive TERESE CONTOUR TEST STRP monitor blood sugars 3x/day TERESE CONTOUR TEST STRP GLUCOSE BLOOD Inactive DETROL LA 4 MG [id number] Take 1 tablet by mouth daily DETROL LA 4 MG [id number]-AOT TOLTERODINE TARTRATE Inactive ZYPREXA 7.5 MG TABS 1 at HS ZYPREXA 7.5 MG TABS 251611 OLANZAPINE Inactive THIOTHIXENE 5 MG CAPS by mouth twice a day THIOTHIXENE 5 MG CAPS 764115 THIOTHIXENE Inactive UROXATRAL 10 MG SU36E-PYM Take 1 tablet by mouth daily UROXATRAL 10 MG [id number]-DZI ALFUZOSIN HCL Inactive ACYCLOVIR 400 MG ORAL TABS 1 pill three times daily x 5 days, for cold sore outbreak ACYCLOVIR 400 MG ORAL TABS 124300 ACYCLOVIR Inactive TRUETEST TEST STRP check sugars 4x/day TRUETEST TEST STRP GLUCOSE BLOOD Inactive HUMALOG 100 UNIT/ML SOLN Take 20 units with breakfast, 10u with lunch and suppetr. HUMALOG 100 UNIT/ML SOLN INSULIN LISPRO ( HUMAN) Inactive CYCLOBENZAPRINE HCL 10 MG TABS 1 tablet by mouth three times daily, scheduled CYCLOBENZAPRINE HCL 10 MG TABS 749148 CYCLOBENZAPRINE HCL Inactive ACCU-CHEK ROSA INVITR STRP use strips with device to check blood sugars 3 times daily ACCU-CHEK ROSA INVITR STRP GLUCOSE BLOOD Inactive ACCU-CHEK ROSA UZMA Use device to check blood sugars ACCU-CHEK ROSA UZMA BLOOD GLUCOSE MONITORING SUPPL Inactive FLUVOXAMINE MALEATE 100 MG ORAL TABS Take 1/2 tab at noon FLUVOXAMINE MALEATE 100 MG ORAL TABS 580861 FLUVOXAMINE MALEATE Inactive FLUVOXAMINE MALEATE 100 MG TABS Take one (1) tablet by mouth am, 1/2 at noon FLUVOXAMINE MALEATE 100 MG TABS 217286 FLUVOXAMINE MALEATE Inactive BACTROBAN 2 % CREAM Apply to affected area BID for up to 10 days BACTROBAN 2 % CREAM 196691 MUPIROCIN CALCIUM Inactive NOVOFINE 32G X 6 MM MISC use one four times per day NOVOFINE 32G X 6 MM MISC INSULIN PEN NEEDLE Inactive TRAZODONE HCL 100 MG ORAL TABS 1 tab by mouth for sleep TRAZODONE HCL 100 MG ORAL TABS 187372 TRAZODONE HCL Inactive LOVAZA 1 GM CAPS 4 daily (for triglycerides) LOVAZA 1 GM CAPS 645966 AYOOY-6-CCGX ETHYL ESTERS Inactive METFORMIN HCL ER 500 MG KZ14Y-VXR Take three tablets by mouth everyday METFORMIN HCL ER 500 MG [id number]-TKD METFORMIN HCL Inactive METOPROLOL SUCCINATE 100 MG AV54E-NAO 1 by mouth daily for blood pressure METOPROLOL SUCCINATE 100 MG BP43E-IXK METOPROLOL SUCCINATE Inactive AMITIZA 24 MCG ORAL CAPS Take one capsule BID for constipation. AMITIZA 24 MCG ORAL CAPS LUBIPROSTONE Inactive TOLTERODINE TARTRATE 2 MG TABS 1 pill twice daily, for bladder TOLTERODINE TARTRATE 2 MG TABS 915817 TOLTERODINE TARTRATE Inactive CEFDINIR 300 MG CAPS by mouth twice a day CEFDINIR 300 MG CAPS 719689 CEFDINIR Inactive AZITHROMYCIN 500 MG SOLR 1 po q day AZITHROMYCIN 500 MG SOLR 13071561929 AZITHROMYCIN Inactive AMOXICILLIN 500 MG CAPS 2 po BID x 10 days AMOXICILLIN 500 MG CAPS 706874 AMOXICILLIN Inactive PENICILLIN V POTASSIUM 500 MG TABS 1 pill by mouth three times daily PENICILLIN V POTASSIUM 500 MG TABS 421692 PENICILLIN V POTASSIUM Inactive KEFLEX 500 MG CAP 1 po BID x 7 days KEFLEX 500 MG CAP 287925 CEPHALEXIN Inactive Immunizations Vaccine Administration Date Value [...] Fluvirin, Fluarix, Agriflu(>=18 yo)) Fluzone (>3 yrs.) [[id number]] Influenza, seasonal, injectable pneumococcal immunization administered Pneumovax [...] MICROALBUMIN - Chemistry sodium, serum 137 mmol/L 810-062 1623/05/19 potassium, serum 5.2 mmol/L 3.5-5.2 chloride, serum [...] Panel - Chemistry sodium, serum 137 mmol/L 918-762 4321/10/12 potassium, serum 4.8 mmol/L 3.5-5.2 chloride, serum 102 mmol/L 98-107 carbon dioxide, venous blood 27.6 mmol/L 21.0-32.0 blood glucose 168 mg/dL 65-110 calcium, serum 9.0 mg/dL 8.5-10.1 urea nitrogen, blood 15 mg/dL 7-18 creatinine, serum 1.04 mg/dL 0.55-1.30 sodium, serum 138 mmol/L 645-454 6937/11/11 potassium, serum 4.7 mmol/L 3.5-5.2 chloride, serum [...] % 11.6-14.8 platelet count 252 10^3/MM^3 10*3/mm3 684-608 6237/10/12 leukocyte count, blood 5.8 10^3/MM^3 10*3/mm3 4.6-10.2 [...] 240 10^3/MM^3 10*3/mm3 142-424 Lab Report: Chlamydia/GC APTIMA/62257, HIV-1/2 Agn/Dominga/61731, RPR (DX) W ... - Chemistry hepatitis B surface antigen NON-REACTIVE NON-REACTIVE Lab Report: Chlamydia/GC APTIMA/55139, HIV-1/2 Agn/Dominga/35750, RPR (DX) W ... - Lab chlamydia DNA probe NOT DETECTED NOT DETECTED Lab Report: Chlamydia/GC APTIMA/96166, HIV-1/2 Agn/Dominga/52018, RPR (DX) W ... - Microbiology Neisseria gonorrhoeae DNA probe NOT DETECTED NOT DETECTED Lab Report: Chlamydia/GC APTIMA/93965, HIV-1/2 Agn/Dominga/44259, RPR (DX) W ... - Serology rapid plasma reagin antibody titer NON-REACTIVE NON-REACTIVE Lab Report: HGBA1C - Chemistry hemoglobin A1C, blood, as % of total hemoglobin 6.1 % 4.3-6.0 hemoglobin A1C, blood, as % of total hemoglobin 6.3 % 4.3-6.0 Lab Report: Lipid Panel, HEPATIC PANEL, MICROALBUMIN, CBC - Chemistry cholesterol, serum 131 mg/dL 989-249 9703/06/03 triglyceride, serum, fasting 383 mg/dL 30-200 HDL [...] 4.7 mg/dL 2.6-7.2 cholesterol, serum 142 mg/dL 146-052 3024/06/26 triglyceride, serum, fasting 272 mg/dL 30-200 HDL [...] negative Encounters Code Encounter Date Provider Facility CPT-88212 Level 3 Est. Patient 14:39:00 REPAIR COIL WINDER Vanessa Hickey MD [facility] CPT-34786 Level 2 Est. Patient 18:43:34 CDT Mima Erazo [facility] CPT-98994 Level 3 Est. Patient 16:22:09 CDT Cherelle Avila [facility] CPT-89954 Level 4 Est. Patient 17:55:14 CDT Mima Erazo [facility] CPT-46385 Level 2 Est. Patient 17:13:21 CDT Alina Castaneda MD PhD [facility] CPT-58965 Level 3 Est. Patient 14:46:15 CDT Vanessa Hickey MD [facility]-26477 Level 3 Est. Patient 09:34:56 CDT Alina Castaneda MD PhD [facility]-04090 Level 3 Est. Patient 21:40:19 CDT Mima Erazo [facility] CPT-18080 Level 3 Est. Patient 09:26:40 CDT Marvel Charles [facility]-75043 Level 3 Est. Patient 12:36:43 CDT Vanessa Hickey MD [facility]-96744 Level 3 Est. Patient 12:57:49 CDT Vanessa Hickey MD [facility]-69011 Level 3 Est. Patient 00:28:25 CDT Alina Castaneda MD [facility]79209 Level 2 Est. Patient 12:52:14 CDT Alina Castaneda MD [facility]11927 Level 3 Est. Patient 11:51:18 REPAIR COIL WINDER Alina Castaneda MD [facility]-96728 Level 3 Est. Patient 10:09:22 REPAIR COIL WINDER Alina Castaneda MD [facility]-30328 Level 3 Est. Patient 14:36:26 REPAIR COIL WINDER Marvel Charles [facility]-31279 Level 3 Est. Patient 13:34:47 REPAIR COIL WINDER Alina Castaneda MD [facility]-22110 Level 3 Est. Patient 19:52:08 REPAIR COIL WINDER Alina Castaneda MD [facility]-55444 Level 3 Est. Patient 10:01:51 REPAIR COIL WINDER Marvel Charles [facility]-17083 Level 3 Est. Patient 21:54:06 CDT Vanessa Hickey MD [facility]-59257 Level 3 Est. Patient 08:54:46 CDT Alina Castaneda MD [facility]94295 Level 3 Est. Patient 09:32:11 CDT Marvel Charles [facility]-34549 Level 3 Est. Patient 12:02:49 CDT Alina Castaneda MD [facility]-83059 Level 3 Est. Patient 19:17:33 CDT Alina Castaneda MD [facility]-79514 Level 3 Est. Patient 13:19:10 CDT Marvel Thurstonestela [facility]-72647 Level 3 Est. Patient 08:20:05 CDT Alina Castaneda MD [facility]-21610 Level 3 Est. Patient 15:17:18 CDT Alina Castaneda MD [facility]-20621 Level 3 Est. Patient 14:25:36 REPAIR COIL WINDER Marvel Charles [facility]-42127 Level 3 Est. Patient 10:09:15 REPAIR COIL WINDER Marvel Charles [facility]-93531 Level 3 Est. Patient 21:28:43 CDT Alina Castaneda MD [facility]-00303 Level 3 Est. Patient 15:20:11 CDT Marvel Gurdeepajayestela [facility]-81332 Level 4 Est. Patient 19:08:12 CDT Alina Castaneda MD [facility]-07537 Level 3 Est. Patient 15:06:39 CDT Marvel Araceli [facility]-05040 Level 4 Est. Patient 17:48:15 CDT Alina Castaneda MD [facility]-36908 Level 3 Est. Patient 14:53:49 CDT Alina Castaneda MD [facility]91181 Level 3 Est. Patient 09:35:16 CDT Alina Castaneda MD [facility]-66076 Level 3 Est. Patient 12:23:22 CDT Alina Castaneda MD [facility]-19267 Level 3 Est. Patient 16:19:15 CDT Alina Castaneda MD [facility]-85209 Level 3 Est. Patient 21:39:56 REPAIR COIL WINDER Alina Castaneda MD [facility]-27288 Level 4 Est. Patient 14:12:56 REPAIR COIL WINDER Alina Castaneda MD [facility]51090 Level 2 Est. Patient 15:34:57 REPAIR COIL WINDER Alina Castaneda MD [facility]43392 Level 3 Est. Patient 12:17:04 REPAIR COIL WINDER Alina Castaneda MD [facility]59807 Level 3 Est. Patient 09:18:18 REPAIR COIL WINDER Marvel Charles [facility]-97828 Level 2 Est. Patient 21:50:24 CDT Alina Castaneda MD [facility]-17819 Level 3 Est. Patient 09:17:28 CDT Marvel Charles [facility]-26019 Level 4 Est. Patient 18:54:02 CDT Alina Castaneda MD [facility]-14328 Level 3 Est. Patient 10:47:10 CDT Alina Castaneda MD [facility]-55948 Level 3 Est. Patient 09:22:20 CDT Marvel Charles [facility]-00204 Level 3 Est. Patient 16:39:43 CDT Marvel Charles [facility] [id number] Level 3 Est. Patient 16:05:16 CDT Alina Castaneda MD [id number] Level 3 Est. Patient 00:29:15 CDT Alina Castaneda MD PhD [facility] CPT-77147 Level 3 Est. Patient 10:49:22 RE[employer]IR [employer] [facility] CPT-00034 Level 3 Est. Patient 21:30:19 RE[employer] Alina Castaneda MD PhD [facility] CPT-91203 Level 4 Est. Patient 17:04:11 REPAIR [employer] [facility] CPT-69203 Level 3 Est. Patient 15:34:11 REPAIR [employer] [facility] CPT-70346 Level 2 Est. Patient 12:51:58 REPA[employer] Alina Castaneda MD [facility] CPT-61347 Level 3 Est. Patient 13:20:01 RE[employer] Alina Castaneda MD PhD [facility] CPT-12294 Level 3 Est. Patient 09:23:35 CDT Alina Castaneda MD PhD [facility] Procedures Code Procedure Name Date Entry Date Standard Description CPT-88767 Bladder Scan 14:39:01 RE[employer]IR [employer] CPT-TCMM Transitional Care Mgmt-Moderate 10:30:19 RE[employer] CPT-38662 Bladder Scan 12:36:44 CDT CPT-15993 Bladder Scan 21:54:06 CDT CPT-G0008 Administration of Influenza Virus Vaccine 13:05:26 CDT CPT-40770 Fluzone Quadrivalent Intramuscular Suspension 0.5 ML 13: 05:26 CDT CPT-87712 Administration single or combination vaccine inc oral 11 :49:51 CDT CPT-55664 Pneumovax 11:49:51 CDT CPT-16214 Ribs unilateral 2V 12:37:22 [employer] CPT-23423 Chest 2V Frontal and Lat 17:15:26 CDT CPT-48031 Abx/Therapy Injection 18:54:02 CDT CPT-J0696 Rocephin 1000 mg (Ceftriaxone) 16:00:32 CDT CPT-16542 Chest 2V Frontal and Lat 15:26:45 CDT CPT-82147 Chest 2V Frontal and Lat 10:23:27 CDT CPT-21318 Venipuncture Draw Fee 10:11:00 CDT CPT-53573 Administration single or combination vaccine inc oral 11 :56:38 CDT CPT-25326 Influenza split virus > age 3 11:56:38 CDT CPT-83811 Venipuncture Draw Fee 08:49:54 RE[employer]IR [employer] CPT-78977 EKG Trac and Interp 17:54:19 REPAIR [employer]ER
--- OUTSIDE RECORDS SUMMARY | 2018-07-02 14:15 | XMS REPORT | Clinical Summary ---
Author Author Admin, TERELL Organization [facility] Address Unknown Phone Unavailable [...] PhD Unspecified essential hypertension URI 465.9 Resolved Alnia Castaneda MD PhD Acute upper respiratory infections 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 Erazo FLEET COORDINATOR Benign paroxysmal positional vertigo Vertigo, benign paroxysmal position 386.11 Inactive Mima Erazo FLEET COORDINATOR Benign paroxysmal positional vertigo High-risk sexual behavior V69.2 Active Alina Castaneda MD PhD High-risk sexual behavior Erectile dysfunction 302.72 Active Alina Castaneda MD PhD Psychosexual dysfunction with inhibited sexual excitement Constipation 564.00 Active Alina Castaneda MD PhD Constipation, unspecified Skin lesion 709.9 Active Alina Castaneda MD PhD Unspecified disorder of skin and subcutaneous tissue Malaise and fatigue 780.79 Active Cherelle Speaks FLEET COORDINATOR Other malaise and fatigue Diarrhea 787.91 Active Cherelle Speaks FLEET COORDINATOR Diarrhea PHARYNGITIS 462 Active Cherelle Speaks FLEET COORDINATOR Acute pharyngitis Colitis 558.9 Active Mima Erazo FLEET COORDINATOR Other and unspecified noninfectious gastroenteritis and colitis WOUND, OPEN, NOSE ICD-873.20 Inactive Alina Castaneda MD PhD DIABETES, TYPE 2 ICD-250.00 Inactive Alina Castaneda MD PhD HYPERTENSION ICD-401.9 Inactive Alina Castaneda MD PhD URI ICD-465.9 Inactive Alina Castaneda MD PhD CHEST PAIN ICD-786.50 Inactive Alina Castaneda MD PhD FH STROKE ICD-V17.1 Inactive Marvel Charles DIRECTOR MARKETING ANALYTICS FATIGUE ICD-780.79 Inactive Alina Castaneda MD PhD [...] mouth twice daily, for constipation DOCUSATE SODIUM 33630118068 No Longer Active Mima Erazo APRN Active FLONASE ALLERGY RELIEF 50 MCG/ACT NASAL SUSP One spray each nostril BID x 1 week then daily FLUTICASONE PROPIONATE 91381224094 Active Mimacecily Erazo APRN Active BD PEN NEEDLE MINI U/F 31G X 5 MM MISC 4 a day INSULIN PEN NEEDLE 52975737311 Active Mallashondaeh Ziglari DIRECTOR MARKETING ANALYTICS Active AMITIZA 24 MCG ORAL CAPS Take one capsule BID for constipation LUBIPROSTONE 53451933556 Active Mimacecily Erazo APRN Active LEVEMIR FLEXTOUCH 100 UNIT/ML SC SOPN 75 units SQ each evening, for diabetes INSULIN DETEMIR 17346537980 Active Mima Erazo APRN Active TRUEPLUS LANCETS 30G MISC 3 a day LANCETS 19973490779 Active Mallashondaeh Ziglari DIRECTOR MARKETING ANALYTICS Active TOLTERODINE TARTRATE 2 MG TABS 1 pill twice daily, for bladder TOLTERODINE TARTRATE 31348392620 No Longer Active Vanessa Hickey MD Active AMITIZA 24 MCG ORAL CAPS Take one capsule BID for constipation. LUBIPROSTONE 72511247990 No Longer Active Vanessa Hickey MD Active LOMOTIL 2.5-0.025 MG ORAL TABS take 1-2 tabs PO after each stool, no more than 8 in 24 hours DIPHENOXYLATE-ATROPINE 31692994382 Active Grace Nascimento RMA Active FLUVOXAMINE MALEATE 100 MG ORAL TABS take one tab every AM et HS, and take 1/ 2 tab at noon FLUVOXAMINE MALEATE 44659941227 Active Gracekailee Nascimento RMA Active METOPROLOL SUCCINATE 100 MG [id number] 1 by mouth daily for blood pressure METOPROLOL SUCCINATE 82726089431 No Longer Active Grace Nascimento RMA Active METFORMIN HCL ER 500 MG [id number]-[id number] Take three tablets by mouth everyday METFORMIN HCL 27160155045 No Longer Active Grace Nascimento RMA Active LOVAZA 1 GM CAPS 4 daily (for triglycerides) OMEGA-3- ACID ETHYL ESTERS 73616612776 No Longer Active Grace Nascimento RMA Active TRAZODONE HCL 100 MG ORAL TABS 1 tab by mouth for sleep TRAZODONE HCL 49285200162 No Longer Active Grace Nascimento RMA Active NOVOFINE 32G X 6 MM MISC use one four times per day INSULIN PEN NEEDLE 54275084812 No Longer Active Grace Nascimento RMA Active BACTROBAN 2 % CREAM Apply to affected area BID for up to 10 days MUPIROCIN CALCIUM 64866496749 No Longer Active Grace Nascimento RMA Active ZOFRAN 4 MG TABS 1 po q4hr PRN Nausea ONDANSETRON HCL 88851534806 Active Salina Han RMA Active KEFLEX 500 MG CAP 1 po BID x 7 days CEPHALEXIN 96378936183 No Longer Active Cherelle Avila APRN Active FLUVOXAMINE MALEATE 100 MG TABS Take one (1) tablet by mouth am, 1/2 at noon FLUVOXAMINE MALEATE 06390349977 No Longer Active Mima Erazo FLEET COORDINATOR Active CORICIDIN HBP CONGESTION/COUGH 10-200 MG ORAL CAPS Take as directed on box as needed for cold/flu symptoms DEXTROMETHORPHAN-GUAIFENESIN 35484176804 Active Cherelle Speaks FLEET COORDINATOR Active OMEGA-3 300 MG ORAL CAPS 4 caps by mouth daily OMEGA-3 FATTY ACIDS 70996247137 Active Mima Erazo FLEET COORDINATOR Active FLUVOXAMINE MALEATE 100 MG ORAL TABS Take 1/2 tab at noon FLUVOXAMINE MALEATE 33726280738 No Longer Active Cherelle Speaks FLEET COORDINATOR Active [facility] LUBRICANT EYE DROPS 0.4-0.3 % OPHTH SOLN POLYETHYL GLYCOL-PROPYL GLYCOL 59966661912 Active Mima Erazo FLEET COORDINATOR Active CLONAZEPAM 1 MG TABS 1/2 pill by mouth three times daily CLONAZEPAM 70854052442 Active Masno Loredo MD Active MIRALAX POWD 17g by mouth daily, for constipation POLYETHYLENE GLYCOL 3350 11277090347 Active Alina Castaneda MD PhD Active HYDROCODONE-ACETAMINOPHEN 5-325 MG TABS 2 tabs by mouth three times daily for pain HYDROCODONE-ACETAMINOPHEN 74834481157 Active Mima Erazo FLEET COORDINATOR Active HUMALOG KWIKPEN 100 UNIT/ML SC SOPN 20 units with breakfast, 10 units with lunch, 10 units with dinner, for diabetes INSULIN LISPRO (HUMAN ) 62598743227 Active Alina Castaneda MD PhD Active LATUDA 120 MG ORAL TABS 1 pill by mouth nightly LURASIDONE HCL 56425162289 Active Alina Castaneda MD PhD Active TRUETEST TEST STRP check blood sugars 3x/day GLUCOSE BLOOD 29841752871 Active Marvel Charles DIRECTOR MARKETING ANALYTICS Active ACCU-CHEK ROSA UZMA Use device to check blood sugars BLOOD GLUCOSE MONITORING SUPPL 90742406754 No Longer Active Marvel Charles DIRECTOR MARKETING ANALYTICS Active ACCU-CHEK ROSA INVITR STRP use strips with device to check blood sugars 3 times daily GLUCOSE BLOOD 00937133434 No Longer Active Marvel MARROQUIN Active VERAPAMIL HCL ER 180 MG ORAL CR-TABS 1 pill by mouth twice daily, for migraine prevention VERAPAMIL HCL 06712665495 Active CRYSTAL Rodrigues Active CYCLOBENZAPRINE HCL 10 MG TABS 1 tablet by mouth three times daily, scheduled CYCLOBENZAPRINE HCL 16521113274 No Longer Active Alina Castaneda MD PhD Active HUMALOG 100 UNIT/ML SOLN Take 20 units with breakfast, 10u with lunch and suppetr. INSULIN LISPRO (HUMAN) 01735930424 No Longer Active Alina Castaneda MD PhD Active TRUETEST TEST STRP check sugars 4x/day GLUCOSE BLOOD 27249416228 No Longer Active Alina Castaneda MD PhD Active MORPHINE SULFATE 30 MG TABS 1 pill by mouth twice daily, for pain MORPHINE SULFATE 83728666929 Active Mason Loredo MD Active ACYCLOVIR 400 MG ORAL TABS 1 pill three times daily x 5 days, for cold sore outbreak ACYCLOVIR 31149305204 No Longer Active Alina Castaneda MD PhD Active PENICILLIN V POTASSIUM 500 MG TABS 1 pill by mouth three times daily PENICILLIN V POTASSIUM 80627036464 No Longer Active Alina Castaneda MD PhD Active UROXATRAL 10 MG [id number] Take 1 tablet by mouth daily ALFUZOSIN HCL 62384673081 No Longer Active Alina Castaneda MD PhD Active THIOTHIXENE 5 MG CAPS by mouth twice a day THIOTHIXENE 57358005304 No Longer Active Alina Castaneda MD PhD Active ZYPREXA 7.5 MG TABS 1 at HS OLANZAPINE 88265289319 No Longer Active Alina Castaneda MD PhD Active BD INSULIN SYRINGE 28G X 1/2" 1 ML MISC 1 four times per day INSULIN SYRINGE-NEEDLE U-100 05518243382 Active Marvel MARROQUIN Active DETROL LA 4 MG [id number]-[id number] Take 1 tablet by mouth daily TOLTERODINE TARTRATE 52562811672 No Longer Active Alina Castaneda MD PhD Active TERESE CONTOUR TEST STRP monitor blood sugars 3x/day GLUCOSE BLOOD 52905267740 No Longer Active Alina Castaneda MD PhD Active EQL TRUETEST TEST STRP Test blood sugar TID GLUCOSE BLOOD 49381038957 No Longer Active Alina Castaneda MD PhD Active FLUTICASONE PROPIONATE 50 MCG/ACT SUSP 2 sprays each nostril qDay x 30 days FLUTICASONE PROPIONATE 32728872447 No Longer Active Alina Castaneda MD PhD Active IBUPROFEN 200 MG TABS 1 Q 6 hr. PRN IBUPROFEN 80390733240 No Longer Active Alina Castaneda MD PhD Active NIACIN ER 500 MG CR-TABS 4 qHS (for triglycerides) NIACIN 76820335227 No Longer Active Alina Castaneda MD PhD Active ALFUZOSIN HCL ER 10 MG GL67C-DSQ 1 tablet daily ALFUZOSIN HCL 88933696719 Active CRYSTAL Rodrigues Active SAPHRIS 5 MG SUBL by mouth twice a day ASENAPINE MALEATE 71245074615 No Longer Active Marvel MARROQUIN Active ACETAMINOPHEN 500 MG TABS 2 Q 6 hr. PRN ACETAMINOPHEN 52969667315 No Longer Active Marvel MARROQUIN Active ORPHENADRINE CITRATE ER 100 MG [id number]-CZD 1 every 12 hr. as needed ORPHENADRINE CITRATE 53599459808 No Longer Active Alina Castaneda MD PhD Active NIACIN CR 500 MG CR-TABS 2 qHS NIACIN 12909055864 No Longer Active Alina Castaneda MD PhD Active AMOXICILLIN 500 MG CAPS 2 po BID x 10 days AMOXICILLIN 63243737157 No Longer Active Alina Castaneda MD PhD Active HYDROCODONE-ACETAMINOPHEN 7.5-325 MG TABS 1 four times a day as needed for pain HYDROCODONE-ACETAMINOPHEN 66077441441 No Longer Active Alina Castaneda MD PhD Active DOXEPIN HCL 10 MG CAPS Take 1 tablet by mouth daily DOXEPIN HCL 37116225029 No Longer Active Salina Han A Active NAVANE 10 MG CAPS 1/2 tablet twice a day THIOTHIXENE No Longer Active Salina Han A Active CYCLOBENZAPRINE HCL 10 MG TABS 1/2 tablet by mouth every 8 hours as needed for muscle spasms CYCLOBENZAPRINE HCL 85376614641 No Longer Active Alina Castaneda MD PhD Active BACTROBAN 2 % CREAM apply to ear and nose twice daily MUPIROCIN CALCIUM 14713850969 No Longer Active Alina Castaneda MD PhD Active HYDROCODONE-ACETAMINOPHEN 5-325 MG TABS take one tablet by mouth every four hours as needed for pain HYDROCODONE-ACETAMINOPHEN 32774962950 No Longer Active Alina Castaneda MD PhD Active ZOLPIDEM TARTRATE 10 MG TABS take at bedtime ZOLPIDEM TARTRATE 46131357931 Active Alina Castaneda MD PhD Active ZYPREXA 5 MG TABS take one tablet by mouth every evening OLANZAPINE 13747714355 No Longer Active Alina Castaneda MD PhD Active ALBUTEROL SULFATE 0.083 % NEBU SOLN one vial per nebulizer TID and PRN cough/ soa ALBUTEROL SULFATE 53968120196 No Longer Active Alina Castaneda MD PhD Active GUAIFENESIN 600 MG [id number] 1 tablet by mouth twice daily if needed for cough GUAIFENESIN 01857933567 No Longer Active Marvel MARROQUIN Active AZITHROMYCIN 500 MG SOLR 1 po q day AZITHROMYCIN 29629014125 No Longer Active Alina Castaneda MD PhD Active PROMETHAZINE-CODEINE 6.25-10 MG/5ML SYRP 1 tsp po q 6 hours prn cough PROMETHAZINE-CODEINE 17249234489 No Longer Active Alina Castaneda MD PhD Active CEFDINIR 300 MG CAPS by mouth twice a day CEFDINIR 57051890004 No Longer Active Alina Castaneda MD PhD Active METFORMIN HCL 500 MG [id number]-KHQ Take 3 tablets by mouth everyday METFORMIN HCL 26087260710 No Longer Active Alina Castaneda MD PhD Active LEVEMIR 100 UNIT/ML SOLN 90 units SQ qHS INSULIN DETEMIR 59356331338 No Longer Active Marvel MARROQUIN Active TOPROL XL 100 MG [id number]-WGJ 1 @ HS METOPROLOL SUCCINATE 73408574756 No Longer Active Marvel MARROQUIN Active ALLOPURINOL 300 MG TABS Take one by mouth daily ALLOPURINOL 61302523458 Active Mima Erazo FLEET COORDINATOR Active ZYPREXA 10 MG TABS Take one by mouth daily OLANZAPINE 95847140520 No Longer Active Alina Castaneda MD PhD Active NOVOLOG 100 UNIT/ML SOLN 40 units with every meal INSULIN ASPART 26811989956 No Longer Active Alina Castaneda MD PhD Active VERAPAMIL HCL CR 120 MG TAB CR 1 qPM VERAPAMIL HCL 21991236074 No Longer Active Salina ROJAS Active ZYPREXA 15 MG TABS Take 1 tablet by mouth daily OLANZAPINE 05291240087 No Longer Active Marvel MARROQUIN Active LISINOPRIL 20 MG TABS 1 BID LISINOPRIL 98240029344 Active Alina Castaneda MD PhD Active ALBUTEROL SULFATE (2.5 MG/3ML) 0.083% NEBU 1 neb tid and prn cough ALBUTEROL SULFATE 97012612882 No Longer Active Alina Castaneda MD PhD Active TRAVATAN Z 0.004 % SOLN 1 gtt each eye daily TRAVOPROST 41587281147 Active CRYSTAL Suarez Active LANTUS 100 UNIT/ML SOLN 60 units sq q hs INSULIN GLARGINE 01657942471 No Longer Active CRYSTAL Suarez Active ALBUTEROL SULFATE (2.5 MG/3ML) 0.083% NEBU 1 neb tid and prn cough ALBUTEROL SULFATE (2.5 MG/3ML) 0.083% NEBU 178371 ALBUTEROL SULFATE Inactive ZYPREXA 15 MG TABS Take 1 tablet by mouth daily ZYPREXA 15 MG TABS 244458 OLANZAPINE Inactive VERAPAMIL HCL CR 120 MG TAB CR 1 qPM VERAPAMIL HCL CR 120 MG TAB CR VERAPAMIL HCL Inactive ZYPREXA 10 MG TABS Take one by mouth daily ZYPREXA 10 MG TABS 590480 OLANZAPINE Inactive TOPROL XL 100 MG [id number] 1 @ HS TOPROL XL 100 MG IS63B-ZSN METOPROLOL SUCCINATE Inactive LEVEMIR 100 UNIT/ML SOLN 90 units SQ qHS LEVEMIR 100 UNIT/ML SOLN INSULIN DETEMIR Inactive PROMETHAZINE-CODEINE 6.25-10 MG/5ML SYRP 1 tsp po q 6 hours prn cough PROMETHAZINE-CODEINE 6.25-10 MG/5ML SYRP 825221 PROMETHAZINE- CODEINE Inactive GUAIFENESIN 600 MG [id number]-LFI 1 tablet by mouth twice daily if needed for cough GUAIFENESIN 600 MG [id number]-YHH GUAIFENESIN Inactive ALBUTEROL SULFATE 0.083 % NEBU SOLN one vial per nebulizer TID and PRN cough/ soa ALBUTEROL SULFATE 0.083 % NEBU SOLN 191476 ALBUTEROL SULFATE Inactive ZYPREXA 5 MG TABS take one tablet by mouth every evening ZYPREXA 5 MG TABS 012560 OLANZAPINE Inactive HYDROCODONE-ACETAMINOPHEN 5-325 MG TABS take one tablet by mouth every four hours as needed for pain HYDROCODONE-ACETAMINOPHEN 5-325 MG TABS 219149 HYDROCODONE-ACETAMINOPHEN Inactive BACTROBAN 2 % CREAM apply to ear and nose twice daily BACTROBAN 2 % CREAM 787044 MUPIROCIN CALCIUM Inactive CYCLOBENZAPRINE HCL 10 MG TABS 1/2 tablet by mouth every 8 hours as needed for muscle spasms CYCLOBENZAPRINE HCL 10 MG TABS 319891 CYCLOBENZAPRINE HCL Inactive NAVANE 10 MG CAPS 1/2 tablet twice a day NAVANE 10 MG CAPS THIOTHIXENE Inactive DOXEPIN HCL 10 MG CAPS Take 1 tablet by mouth daily DOXEPIN HCL 10 MG CAPS 1423526 DOXEPIN HCL Inactive HYDROCODONE-ACETAMINOPHEN 7.5-325 MG TABS 1 four times a day as needed for pain HYDROCODONE-ACETAMINOPHEN 7.5-325 MG TABS 673407 HYDROCODONE-ACETAMINOPHEN Inactive NIACIN CR 500 MG CR-TABS 2 qHS NIACIN CR 500 MG CR- TABS NIACIN Inactive ORPHENADRINE CITRATE ER 100 MG [id number] 1 every 12 hr. as needed ORPHENADRINE CITRATE ER 100 MG [id number]-FNH ORPHENADRINE CITRATE Inactive ACETAMINOPHEN 500 MG TABS 2 Q 6 hr. PRN ACETAMINOPHEN 500 MG TABS 666449 ACETAMINOPHEN Inactive SAPHRIS 5 MG SUBL by mouth twice a day SAPHRIS 5 MG SUBL ASENAPINE MALEATE Inactive NIACIN ER 500 MG CR-TABS 4 qHS (for triglycerides) NIACIN ER 500 MG CR-TABS NIACIN Inactive IBUPROFEN 200 MG TABS 1 Q 6 hr. PRN IBUPROFEN 200 MG TABS 406979 IBUPROFEN Inactive FLUTICASONE PROPIONATE 50 MCG/ACT SUSP 2 sprays each nostril qDay x 30 days FLUTICASONE PROPIONATE 50 MCG/ACT SUSP 023814 FLUTICASONE PROPIONATE Inactive EQL TRUETEST TEST STRP Test blood sugar TID EQL TRUETEST TEST STRP GLUCOSE BLOOD Inactive TERESE CONTOUR TEST STRP monitor blood sugars 3x/day TERESE CONTOUR TEST STRP GLUCOSE BLOOD Inactive DETROL LA 4 MG [id number] Take 1 tablet by mouth daily DETROL LA 4 MG TZ79V-[id number] TOLTERODINE TARTRATE Inactive ZYPREXA 7.5 MG TABS 1 at HS ZYPREXA 7.5 MG TABS 584177 OLANZAPINE Inactive THIOTHIXENE 5 MG CAPS by mouth twice a day THIOTHIXENE 5 MG CAPS 908466 THIOTHIXENE Inactive UROXATRAL 10 MG HZ67I-TFZ Take 1 tablet by mouth daily UROXATRAL 10 MG NL27Y-GVZ ALFUZOSIN HCL Inactive ACYCLOVIR 400 MG ORAL TABS 1 pill three times daily x 5 days, for cold sore outbreak ACYCLOVIR 400 MG ORAL TABS 660641 ACYCLOVIR Inactive TRUETEST TEST STRP check sugars 4x/day TRUETEST TEST STRP GLUCOSE BLOOD Inactive HUMALOG 100 UNIT/ML SOLN Take 20 units with breakfast, 10u with lunch and suppetr. HUMALOG 100 UNIT/ML SOLN INSULIN LISPRO ( HUMAN) Inactive CYCLOBENZAPRINE HCL 10 MG TABS 1 tablet by mouth three times daily, scheduled CYCLOBENZAPRINE HCL 10 MG TABS 984293 CYCLOBENZAPRINE HCL Inactive ACCU-CHEK ROSA INVITR STRP use strips with device to check blood sugars 3 times daily ACCU-CHEK ROSA INVITR STRP GLUCOSE BLOOD Inactive ACCU-CHEK ROSA UZMA Use device to check blood sugars ACCU-CHEK ROSA UZMA BLOOD GLUCOSE MONITORING SUPPL Inactive FLUVOXAMINE MALEATE 100 MG ORAL TABS Take 1/2 tab at noon FLUVOXAMINE MALEATE 100 MG ORAL TABS 973723 FLUVOXAMINE MALEATE Inactive FLUVOXAMINE MALEATE 100 MG TABS Take one (1) tablet by mouth am, 1/2 at noon FLUVOXAMINE MALEATE 100 MG TABS 751443 FLUVOXAMINE MALEATE Inactive BACTROBAN 2 % CREAM Apply to affected area BID for up to 10 days BACTROBAN 2 % CREAM 102988 MUPIROCIN CALCIUM Inactive NOVOFINE 32G X 6 MM MISC use one four times per day NOVOFINE 32G X 6 MM MISC INSULIN PEN NEEDLE Inactive TRAZODONE HCL 100 MG ORAL TABS 1 tab by mouth for sleep TRAZODONE HCL 100 MG ORAL TABS 006357 TRAZODONE HCL Inactive LOVAZA 1 GM CAPS 4 daily (for triglycerides) LOVAZA 1 GM CAPS 781864 SEIFD-0-XKYJ ETHYL ESTERS Inactive METFORMIN HCL ER 500 MG IE81B-HWG Take three tablets by mouth everyday METFORMIN HCL ER 500 MG TG42G-KIJ METFORMIN HCL Inactive METOPROLOL SUCCINATE 100 MG GF25K-UWT 1 by mouth daily for blood pressure METOPROLOL SUCCINATE 100 MG VT06O-BBO METOPROLOL SUCCINATE Inactive AMITIZA 24 MCG ORAL CAPS Take one capsule BID for constipation. AMITIZA 24 MCG ORAL CAPS LUBIPROSTONE Inactive TOLTERODINE TARTRATE 2 MG TABS 1 pill twice daily, for bladder TOLTERODINE TARTRATE 2 MG TABS 188997 TOLTERODINE TARTRATE Inactive COLACE 100 MG CAPS 1 pill by mouth twice daily, for constipation COLACE 100 MG CAPS 1293413 DOCUSATE SODIUM Inactive CEFDINIR 300 MG CAPS by mouth twice a day CEFDINIR 300 MG CAPS 261942 CEFDINIR Inactive AZITHROMYCIN 500 MG SOLR 1 po q day AZITHROMYCIN 500 MG SOLR 23394361381 AZITHROMYCIN Inactive AMOXICILLIN 500 MG CAPS 2 po BID x 10 days AMOXICILLIN 500 MG CAPS 252297 AMOXICILLIN Inactive PENICILLIN V POTASSIUM 500 MG TABS 1 pill by mouth three times daily PENICILLIN V POTASSIUM 500 MG TABS 413407 PENICILLIN V POTASSIUM Inactive KEFLEX 500 MG CAP 1 po BID x 7 days KEFLEX 500 MG CAP 543811 CEPHALEXIN Inactive Immunizations Vaccine Administration Date Value [...] Fluvirin, Fluarix, Agriflu(>=18 yo)) Fluzone (>3 yrs.) [[id number]] Influenza, seasonal, injectable pneumococcal immunization administered Pneumovax [...] Panel - Chemistry sodium, serum 137 mmol/L 609-572 3184/10/12 potassium, serum 4.8 mmol/L 3.5-5.2 chloride, serum 102 mmol/L 98-107 carbon dioxide, venous blood 27.6 mmol/L 21.0-32.0 blood glucose 168 mg/dL 65-110 calcium, serum 9.0 mg/dL 8.5-10.1 urea nitrogen, blood 15 mg/dL 7-18 creatinine, serum 1.04 mg/dL 0.55-1.30 sodium, serum 138 mmol/L 235-635 4097/11/11 potassium, serum 4.7 mmol/L 3.5-5.2 chloride, serum [...] % 11.6-14.8 platelet count 240 10^3/MM^3 10*3/mm3 621-412 3526/11/11 leukocyte count, blood 9.6 10^3/MM^3 10*3/mm3 4.6-10.2 [...] Acid - Chemistry cholesterol, serum 187 mg/dL 086-677 5520/06/14 triglyceride, serum, fasting 246 mg/dL 30-200 HDL [...] negative Encounters Code Encounter Date Provider Facility CPT-05911 Level 3 Est. Patient 16:27:51 CDT Mima Erazo [facility] [place]-21657 Level 3 Est. Patient 14:39:00 PLC CONTROLS ENGINEER Vanessa Hickey MD [facility]-72800 Level 2 Est. Patient 18:43:34 CDT Mima Erazo [facility] [place][note 2] CPT-16537 Level 3 Est. Patient 16:22:09 CDT Cherelle Avila Formerly named [facility] CPT-20067 Level 4 Est. Patient 17:55:14 CDT Mima Erazo [facility] [place][note 2] CPT-96072 Level 2 Est. Patient 17:13:21 CDT Alina Castaneda MD [facility]-49726 Level 3 Est. Patient 14:46:15 CDT Vanessa Hickey MD [facility]-01057 Level 3 Est. Patient 09:34:56 CDT Alina Castaneda MD [facility]56932 Level 3 Est. Patient 21:40:19 CDT Mima Erazo [facility] [place][note 2] CPT-27903 Level 3 Est. Patient 09:26:40 CDT Marvel Charles [facility]-96592 Level 3 Est. Patient 12:36:43 CDT Vanessa Hickey MD [facility]-26669 Level 3 Est. Patient 12:57:49 CDT Vanessa Hickey MD [facility]-30267 Level 3 Est. Patient 00:28:25 CDT Alina Castaneda MD [facility]38315 Level 2 Est. Patient 12:52:14 CDT Alina Castaneda MD [facility]47705 Level 3 Est. Patient 11:51:18 PLC CONTROLS ENGINEER Alina Castaneda MD [facility]-43110 Level 3 Est. Patient 10:09:22 PLC CONTROLS ENGINEER Alina Castaneda MD [facility]-70355 Level 3 Est. Patient 14:36:26 PLC CONTROLS ENGINEER Marvel Charles [facility]-24647 Level 3 Est. Patient 13:34:47 PLC CONTROLS ENGINEER Alina Castaneda MD [facility]47422 Level 3 Est. Patient 19:52:08 PLC CONTROLS ENGINEER Alina Castaneda MD [facility]04887 Level 3 Est. Patient 10:01:51 PLC CONTROLS ENGINEER Marvel Charles [facility]-48707 Level 3 Est. Patient 21:54:06 CDT Vanessa Hickey MD [facility]-91031 Level 3 Est. Patient 08:54:46 CDT Alina Castaneda MD [facility]40841 Level 3 Est. Patient 09:32:11 CDT Marvel Charles [facility]-53870 Level 3 Est. Patient 12:02:49 CDT Alina Castaneda MD [facility]52944 Level 3 Est. Patient 19:17:33 CDT Alina Castaneda MD [facility]-09579 Level 3 Est. Patient 13:19:10 CDT Marvel Charles [facility]-28043 Level 3 Est. Patient 08:20:05 CDT Alina Castaneda MD [facility]18735 Level 3 Est. Patient 15:17:18 CDT Alina Castaneda MD [facility]13443 Level 3 Est. Patient 14:25:36 PLC CONTROLS ENGINEER Marvel Charles [facility]22451 Level 3 Est. Patient 10:09:15 PLC CONTROLS ENGINEER Marvel Charles [facility] CPT-29485 Level 3 Est. Patient 21:28:43 CDT Alina Castaneda MD [facility] CPT-46505 Level 3 Est. Patient 15:20:11 CDT Marvel Thurstonestela [facility] CPT-81075 Level 4 Est. Patient 19:08:12 CDT Alina Castaneda MD [facility] CPT-05305 Level 3 Est. Patient 15:06:39 CDT Marvel Gurdeepajayestela [facility] CPT-68616 Level 4 Est. Patient 17:48:15 CDT Alina Castaneda MD [facility] CPT-12642 Level 3 Est. Patient 14:53:49 CDT Alina Castaneda MD [facility] CPT-45159 Level 3 Est. Patient 09:35:16 CDT Alina Castaneda MD [facility] CPT-33089 Level 3 Est. Patient 12:23:22 CDT Alina Castaneda MD [facility] CPT-39812 Level 3 Est. Patient 16:19:15 CDT Alina Castaneda MD [facility] CPT-80221 Level 3 Est. Patient 21:39:56 PLC CONTROLS ENGINEER Alina Castaneda MD [facility] CPT-81503 Level 4 Est. Patient 14:12:56 PLC CONTROLS ENGINEER Alina Castaneda MD [facility]-26146 Level 2 Est. Patient 15:34:57 PLC CONTROLS ENGINEER Alina Castaneda MD [facility] CPT-19259 Level 3 Est. Patient 12:17:04 PLC CONTROLS ENGINEER Alina Castaneda MD [facility]-64491 Level 3 Est. Patient 09:18:18 PLC CONTROLS ENGINEER Marvel Araceli [facility]-17917 Level 2 Est. Patient 21:50:24 CDT Alina Castaneda MD [facility]75881 Level 3 Est. Patient 09:17:28 CDT Brooksjohn Charles [facility]-37414 Level 4 Est. Patient 18:54:02 CDT Alina Castaneda MD [facility]01445 Level 3 Est. Patient 10:47:10 CDT Alina Castaneda MD [facility]36005 Level 3 Est. Patient 09:22:20 CDT Brookslashondanivia Araceli [facility]-50844 Level 3 Est. Patient 16:39:43 CDT Brooksjohn Charles [facility]-90932 Level 3 Est. Patient 16:05:16 CDT Alina Castaneda MD [facility]47564 Level 3 Est. Patient 00:29:15 CDT Alina Castaneda MD [facility]344 Level 3 Est. Patient 10:49:22 PLC CONTROLS ENGINEER Brooksjohn Charles [facility]-98386 Level 3 Est. Patient 21:30:19 PLC CONTROLS ENGINEER Alina Castaneda MD [facility]-48663 Level 4 Est. Patient 17:04:11 PLC CONTROLS ENGINEER Marvel Charles [facility]56345 Level 3 Est. Patient 15:34:11 PLC CONTROLS ENGINEER Marvel Charles [facility]-64048 Level 2 Est. Patient 12:51:58 PLC CONTROLS ENGINEER Alina Castaneda MD PhD [facility] CPT-78304 Level 3 Est. Patient 13:20:01 PLC CONTROLS ENGINEER Alina Castaneda MD PhD [facility] CPT-55410 Level 3 Est. Patient 09:23:35 CDT Alina Castaneda MD PhD [facility] Procedures Code Procedure Name Date Entry Date Standard Description CPT-09928 Bladder Scan 14:39:01 PLC CONTROLS ENGINEER CPT-TCMM Transitional Care Mgmt-Moderate 10:30:19 PLC CONTROLS ENGINEER CPT-83777 Bladder Scan 12:36:44 CDT CPT-91774 Bladder Scan 21:54:06 CDT CPT-G0008 Administration of Influenza Virus Vaccine 13:05:26 CDT CPT-77913 Fluzone Quadrivalent Intramuscular Suspension 0.5 ML 13: 05:26 CDT CPT-72865 Administration single or combination vaccine inc oral 11 :49:51 CDT CPT-77314 Pneumovax 11:49:51 CDT CPT-19938 Ribs unilateral 2V 12:37:22 PLC CONTROLS ENGINEER CPT-87917 Chest 2V Frontal and Lat 17:15:26 CDT CPT-51540 Abx/Therapy Injection 18:54:02 CDT CPT-J0696 Rocephin 1000 mg (Ceftriaxone) 16:00:32 CDT CPT-90818 Chest 2V Frontal and Lat 15:26:45 CDT CPT-59167 Chest 2V Frontal and Lat 10:23:27 CDT CPT-98652 Venipuncture Draw Fee 10:11:00 CDT CPT-25146 Administration single or combination vaccine inc oral 11 :56:38 CDT CPT-04683 Influenza split virus > age 3 11:56:38 CDT CPT-12225 Venipuncture Draw Fee 08:49:54 PLC CONTROLS ENGINEER CPT-42694 EKG Trac and Interp 17:54:19 PLC CONTROLS ENGINEER
--- OUTSIDE RECORDS SUMMARY | 2018-07-02 14:16 | XMS REPORT | Clinical Summary ---
Author Author Admin, TERELL Organization [facility] Address Unknown Phone Unavailable Allergies, Adverse [...] PhD Palpitations UNSPECIFIED TACHYCARDIA 785.0 Resolved Alina Castandea MD PhD Tachycardia, unspecified ABNORMAL HEART RHYTHMS [...] mouth three times daily for pain HYDROCODONE-ACETAMINOPHEN 58726373247 Active Alina Castaneda MD PhD Active HUMALOG KWIKPEN 100 UNIT/ML SC SOPN 20 units with breakfast, 10 units with lunch, 10 units with dinner, for diabetes INSULIN LISPRO (HUMAN ) 15675663692 Active Alina Castaneda MD PhD Active LEVEMIR FLEXTOUCH 100 UNIT/ML SC SOPN 70 units SQ each evening, for diabetes INSULIN DETEMIR 94485260727 Active Alina Castaneda MD PhD Active LATUDA 120 MG ORAL TABS 1 pill by mouth nightly LURASIDONE HCL 45555064288 Active Alina Castaneda MD PhD Active COLACE 100 MG CAPS 1 pill by mouth twice daily, for constipation DOCUSATE SODIUM 50900046428 Active Alina Castaneda MD PhD Active TRUETEST TEST STRP check blood sugars 3x/day GLUCOSE BLOOD 68160875391 Active Maljohn Ziglari BOARDING ROOM FIXER Active ACCU-CHEK ROSA UZMA Use device to check blood sugars BLOOD GLUCOSE MONITORING SUPPL 51166458328 No Longer Active MalLurnQ Ziglari BOARDING ROOM FIXER Active ACCU-CHEK ROSA INVITR STRP use strips with device to check blood sugars 3 times daily GLUCOSE BLOOD 87928333451 No Longer Active MalLurnQ 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 BOARDING ROOM FIXER Active VERAPAMIL HCL ER 180 MG ORAL CR-TABS 1 pill by mouth twice daily, for migraine prevention VERAPAMIL HCL 57989966475 Active Alina Castaneda MD PhD Active CYCLOBENZAPRINE HCL 10 MG TABS 1 tablet by mouth three times daily, scheduled CYCLOBENZAPRINE HCL 66303836751 No Longer Active Alina Castaneda MD PhD Active HUMALOG 100 UNIT/ML SOLN Take 20 units with breakfast, 10u with lunch and suppetr. INSULIN LISPRO (HUMAN) 67822216458 No Longer Active Alina Castaneda MD PhD Active TRUETEST TEST STRP check sugars 4x/day GLUCOSE BLOOD 34506807658 No Longer Active Alina Castaneda MD PhD Active MORPHINE SULFATE 30 MG TABS 1 pill by mouth twice daily, for pain MORPHINE SULFATE 30150919375 Active Alina Castaneda MD PhD Active ACYCLOVIR 400 MG ORAL TABS 1 pill three times daily x 5 days, for cold sore outbreak ACYCLOVIR 01074457120 No Longer Active Alina Castaneda MD PhD Active PENICILLIN V POTASSIUM 500 MG TABS 1 pill by mouth three times daily PENICILLIN V POTASSIUM 45480155677 No Longer Active Alina Castaneda MD PhD Active UROXATRAL 10 MG [id number]-JMB Take 1 tablet by mouth daily ALFUZOSIN HCL 46512618289 No Longer Active Alina Castaneda MD PhD Active THIOTHIXENE 5 MG CAPS by mouth twice a day THIOTHIXENE 44380929050 No Longer Active Alina Castaneda MD PhD Active ZYPREXA 7.5 MG TABS 1 at HS OLANZAPINE 38286886799 No Longer Active Alina Catsaneda MD PhD Active BD INSULIN SYRINGE 28G X 1/2" 1 ML MISC 1 four times per day INSULIN SYRINGE-NEEDLE U-100 27292440987 Active Marvel Charles [facility] Active TOLTERODINE TARTRATE 2 MG TABS 1 pill twice daily, for bladder TOLTERODINE TARTRATE 51977430407 Active Alina Castaneda MD PhD Active DETROL LA 4 MG [id number] Take 1 tablet by mouth daily TOLTERODINE TARTRATE 44316778518 No Longer Active Alina Castaneda MD PhD Active TERESE CONTOUR TEST STRP monitor blood sugars 3x/day GLUCOSE BLOOD 74456924744 No Longer Active Alina Castaneda MD PhD Active EQL TRUETEST TEST STRP Test blood sugar TID GLUCOSE BLOOD 77493339766 No Longer Active Alina Castaneda MD PhD Active FLUTICASONE PROPIONATE 50 MCG/ACT SUSP 2 sprays each nostril qDay x 30 days FLUTICASONE PROPIONATE 27746244686 No Longer Active Alina Castaneda MD PhD Active IBUPROFEN 200 MG TABS 1 Q 6 hr. PRN IBUPROFEN 10008588991 No Longer Active Alina Castaneda MD PhD Active NIACIN ER 500 MG CR-TABS 4 qHS (for triglycerides) NIACIN 67955882464 No Longer Active Alina Castaneda MD PhD Active ALFUZOSIN HCL ER 10 MG [id number] 1 tablet daily ALFUZOSIN HCL 55547275520 Active Vanessa Hickey MD Active CLONAZEPAM 1 MG TABS 1 pill by mouth three times daily CLONAZEPAM 66714857814 Active Alina Castaneda MD PhD Active LOVAZA 1 GM CAPS 4 daily (for triglycerides) [id number] ETHYL ESTERS 88057646716 Active Alina Castaneda MD PhD Active SAPHRIS 5 MG SUBL by mouth twice a day ASENAPINE MALEATE 46651142385 No Longer Active Marvel MARROQUIN Active ACETAMINOPHEN 500 MG TABS 2 Q 6 hr. PRN ACETAMINOPHEN 36721096297 No Longer Active Marvel MARROQUIN Active ORPHENADRINE CITRATE ER 100 MG [id number] 1 every 12 hr. as needed ORPHENADRINE CITRATE 96352714921 No Longer Active Alina Castaneda MD PhD Active NIACIN CR 500 MG CR-TABS 2 qHS NIACIN 35904055354 No Longer Active Alina Castaneda MD PhD Active AMOXICILLIN 500 MG CAPS 2 po BID x 10 days AMOXICILLIN 41037010203 No Longer Active Alina Castaneda MD PhD Active HYDROCODONE-ACETAMINOPHEN 7.5-325 MG TABS 1 four times a day as needed for pain HYDROCODONE-ACETAMINOPHEN 04680179797 No Longer Active Alina Castaneda MD PhD Active METFORMIN HCL ER 500 MG [id number]-ZOA Take three tablets by mouth everyday METFORMIN HCL 11417982460 Active Marvel Ziglari BOARDING ROOM FIXER Active DOXEPIN HCL 10 MG CAPS Take 1 tablet by mouth daily DOXEPIN HCL 53803650103 No Longer Active Salina Emely [facility] Active NAVANE 10 MG CAPS 1/2 tablet twice a day THIOTHIXENE No Longer Active Salina Han [facility] Active CYCLOBENZAPRINE HCL 10 MG TABS 1/2 tablet by mouth every 8 hours as needed for muscle spasms CYCLOBENZAPRINE HCL 68734108843 No Longer Active Alina Castaneda MD PhD Active BACTROBAN 2 % CREAM apply to ear and nose twice daily MUPIROCIN CALCIUM 50520520879 No Longer Active Alina Castaneda MD PhD Active HYDROCODONE-ACETAMINOPHEN 5-325 MG TABS take one tablet by mouth every four hours as needed for pain HYDROCODONE-ACETAMINOPHEN 39799792885 No Longer Active Alina Castaneda MD PhD Active ZOLPIDEM TARTRATE 10 MG TABS take at bedtime ZOLPIDEM TARTRATE 50755765694 Active Alina Castaneda MD PhD Active ZYPREXA 5 MG TABS take one tablet by mouth every evening OLANZAPINE 96579923694 No Longer Active Alina Castaneda MD PhD Active ALBUTEROL SULFATE 0.083 % NEBU SOLN one vial per nebulizer TID and PRN cough/ soa ALBUTEROL SULFATE 23911311042 No Longer Active Alina Castaneda MD PhD Active GUAIFENESIN 600 MG [id number] 1 tablet by mouth twice daily if needed for cough GUAIFENESIN 97358720669 No Longer Active Marvel MENDOZAP Active AZITHROMYCIN 500 MG SOLR 1 po q day AZITHROMYCIN 97956153308 No Longer Active Alina Castaneda MD PhD Active METOPROLOL SUCCINATE 100 MG [id number]-KZI 1 by mouth daily for blood pressure METOPROLOL SUCCINATE 13326384798 Active Alina Castaneda MD PhD Active PROMETHAZINE-CODEINE 6.25-10 MG/5ML SYRP 1 tsp po q 6 hours prn cough PROMETHAZINE-CODEINE 77849094080 No Longer Active Alina Castaneda MD PhD Active CEFDINIR 300 MG CAPS by mouth twice a day CEFDINIR 10538452216 No Longer Active Alina Castaneda MD PhD Active METFORMIN HCL 500 MG [id number]-XEW Take 3 tablets by mouth everyday METFORMIN HCL 35925127401 No Longer Active Alina Castaneda MD PhD Active LEVEMIR 100 UNIT/ML SOLN 90 units SQ qHS INSULIN DETEMIR 53850676151 No Longer Active Marvel MARROQUIN Active TOPROL XL 100 MG [id number]-XRA 1 @ HS METOPROLOL SUCCINATE 12139198539 No Longer Active Marvel MARROQUIN Active ALLOPURINOL 300 MG TABS Take one by mouth daily ALLOPURINOL 26085002411 Active Alina Castaneda MD PhD Active ZYPREXA 10 MG TABS Take one by mouth daily OLANZAPINE 30719062863 No Longer Active Alina Castaneda MD PhD Active NOVOLOG 100 UNIT/ML SOLN 40 units with every meal INSULIN ASPART 18771420634 No Longer Active Alina Castaneda MD PhD Active VERAPAMIL HCL CR 120 MG TAB CR 1 qPM VERAPAMIL HCL 28320176067 No Longer Active Salina ROJAS Active ZYPREXA 15 MG TABS Take 1 tablet by mouth daily OLANZAPINE 29070861838 No Longer Active Marvel MARROQUIN Active LISINOPRIL 20 MG TABS 1 BID LISINOPRIL 90402386393 Active Alina Castaneda MD PhD Active ALBUTEROL SULFATE (2.5 MG/3ML) 0.083% NEBU 1 neb tid and prn cough ALBUTEROL SULFATE 45261846197 No Longer Active Alina Castaneda MD PhD Active FLUVOXAMINE MALEATE 100 MG TABS Take one (1) tablet by mouth am, 1/2 at noon, 1 pm FLUVOXAMINE MALEATE 18934581562 Active Alina Castaneda MD PhD Active TRAVATAN Z 0.004 % SOLN 1 gtt each eye daily TRAVOPROST 13780937582 Active Alina Andrea, RMA Active LANTUS 100 UNIT/ML SOLN 60 units sq q hs INSULIN GLARGINE 34396330917 No Longer Active Alina AndreaCRYSTAL Active ALBUTEROL SULFATE (2.5 MG/3ML) 0.083% NEBU 1 neb tid and prn cough ALBUTEROL SULFATE (2.5 MG/3ML) 0.083% NEBU 573646 ALBUTEROL SULFATE Inactive ZYPREXA 15 MG TABS Take 1 tablet by mouth daily ZYPREXA 15 MG TABS 080224 OLANZAPINE Inactive VERAPAMIL HCL CR 120 MG TAB CR 1 qPM VERAPAMIL HCL CR 120 MG TAB CR VERAPAMIL HCL Inactive ZYPREXA 10 MG TABS Take one by mouth daily ZYPREXA 10 MG TABS 912206 OLANZAPINE Inactive TOPROL XL 100 MG [id number] 1 @ HS TOPROL XL 100 MG QK07E-FZL METOPROLOL SUCCINATE Inactive LEVEMIR 100 UNIT/ML SOLN 90 units SQ qHS LEVEMIR 100 UNIT/ML SOLN INSULIN DETEMIR Inactive PROMETHAZINE-CODEINE 6.25-10 MG/5ML SYRP 1 tsp po q 6 hours prn cough PROMETHAZINE-CODEINE 6.25-10 MG/5ML SYRP 656726 PROMETHAZINE- CODEINE Inactive GUAIFENESIN 600 MG CE70L-MUA 1 tablet by mouth twice daily if needed for cough GUAIFENESIN 600 MG [id number] GUAIFENESIN Inactive ALBUTEROL SULFATE 0.083 % NEBU SOLN one vial per nebulizer TID and PRN cough/ soa ALBUTEROL SULFATE 0.083 % NEBU SOLN 862142 ALBUTEROL SULFATE Inactive ZYPREXA 5 MG TABS take one tablet by mouth every evening ZYPREXA 5 MG TABS 624091 OLANZAPINE Inactive HYDROCODONE-ACETAMINOPHEN 5-325 MG TABS take one tablet by mouth every four hours as needed for pain HYDROCODONE-ACETAMINOPHEN 5-325 MG TABS 741494 HYDROCODONE-ACETAMINOPHEN Inactive BACTROBAN 2 % CREAM apply to ear and nose twice daily BACTROBAN 2 % CREAM 838843 MUPIROCIN CALCIUM Inactive CYCLOBENZAPRINE HCL 10 MG TABS 1/2 tablet by mouth every 8 hours as needed for muscle spasms CYCLOBENZAPRINE HCL 10 MG TABS 505779 CYCLOBENZAPRINE HCL Inactive NAVANE 10 MG CAPS 1/2 tablet twice a day NAVANE 10 MG CAPS THIOTHIXENE Inactive DOXEPIN HCL 10 MG CAPS Take 1 tablet by mouth daily DOXEPIN HCL 10 MG CAPS 6343790 DOXEPIN HCL Inactive HYDROCODONE-ACETAMINOPHEN 7.5-325 MG TABS 1 four times a day as needed for pain HYDROCODONE-ACETAMINOPHEN 7.5-325 MG TABS 427269 HYDROCODONE-ACETAMINOPHEN Inactive NIACIN CR 500 MG CR-TABS 2 qHS NIACIN CR 500 MG CR- TABS NIACIN Inactive ORPHENADRINE CITRATE ER 100 MG [id number] 1 every 12 hr. as needed ORPHENADRINE CITRATE ER 100 MG [id number] ORPHENADRINE CITRATE Inactive ACETAMINOPHEN 500 MG TABS 2 Q 6 hr. PRN ACETAMINOPHEN 500 MG TABS 575167 ACETAMINOPHEN Inactive SAPHRIS 5 MG SUBL by mouth twice a day SAPHRIS 5 MG SUBL ASENAPINE MALEATE Inactive NIACIN ER 500 MG CR-TABS 4 qHS (for triglycerides) NIACIN ER 500 MG CR-TABS NIACIN Inactive IBUPROFEN 200 MG TABS 1 Q 6 hr. PRN IBUPROFEN 200 MG TABS 730840 IBUPROFEN Inactive FLUTICASONE PROPIONATE 50 MCG/ACT SUSP 2 sprays each nostril qDay x 30 days FLUTICASONE PROPIONATE 50 MCG/ACT SUSP 588402 FLUTICASONE PROPIONATE Inactive EQL TRUETEST TEST STRP Test blood sugar TID EQL TRUETEST TEST STRP GLUCOSE BLOOD Inactive TERESE CONTOUR TEST STRP monitor blood sugars 3x/day TERESE CONTOUR TEST STRP GLUCOSE BLOOD Inactive DETROL LA 4 MG [id number] Take 1 tablet by mouth daily DETROL LA 4 MG EG16Y-ELZ TOLTERODINE TARTRATE Inactive ZYPREXA 7.5 MG TABS 1 at HS ZYPREXA 7.5 MG TABS 119497 OLANZAPINE Inactive THIOTHIXENE 5 MG CAPS by mouth twice a day THIOTHIXENE 5 MG CAPS 024054 THIOTHIXENE Inactive UROXATRAL 10 MG [id number]-XPV Take 1 tablet by mouth daily UROXATRAL 10 MG AG99U-DLC ALFUZOSIN HCL Inactive ACYCLOVIR 400 MG ORAL TABS 1 pill three times daily x 5 days, for cold sore outbreak ACYCLOVIR 400 MG ORAL TABS 715586 ACYCLOVIR Inactive TRUETEST TEST STRP check sugars 4x/day TRUETEST TEST STRP GLUCOSE BLOOD Inactive HUMALOG 100 UNIT/ML SOLN Take 20 units with breakfast, 10u with lunch and suppetr. HUMALOG 100 UNIT/ML SOLN INSULIN LISPRO ( HUMAN) Inactive CYCLOBENZAPRINE HCL 10 MG TABS 1 tablet by mouth three times daily, scheduled CYCLOBENZAPRINE HCL 10 MG TABS 823847 CYCLOBENZAPRINE HCL Inactive ACCU-CHEK ROSA INVITR STRP use strips with device to check blood sugars 3 times daily ACCU-CHEK ROSA INVITR STRP GLUCOSE BLOOD Inactive ACCU-CHEK ROSA UZMA Use device to check blood sugars ACCU-CHEK ROSA UZMA BLOOD GLUCOSE MONITORING SUPPL Inactive CEFDINIR 300 MG CAPS by mouth twice a day CEFDINIR 300 MG CAPS 136488 CEFDINIR Inactive AZITHROMYCIN 500 MG SOLR 1 po q day AZITHROMYCIN 500 MG SOLR 903074 AZITHROMYCIN Inactive AMOXICILLIN 500 MG CAPS 2 po BID x 10 days AMOXICILLIN 500 MG CAPS 840524 AMOXICILLIN Inactive PENICILLIN V POTASSIUM 500 MG TABS 1 pill by mouth three times daily PENICILLIN V POTASSIUM 500 MG TABS 843687 PENICILLIN V POTASSIUM Inactive Immunizations Vaccine Administration [...] Fluvirin, Fluarix, Agriflu(>=18 yo)) Fluzone (>3 yrs.) [[id number]] Influenza, seasonal, injectable pneumococcal immunization administered Pneumovax [...] HGBA1C - Chemistry sodium, serum 131 mmol/L 914-863 0621/12/30 potassium, serum 5.0 mmol/L 3.5-5.2 chloride, serum 95 mmol/L 98-107 carbon dioxide, venous blood 26.7 mmol/L 21.0-32.0 blood glucose 112 mg/dL 65-110 calcium, serum 9.2 mg/dL 8.5-10.1 urea nitrogen, blood 12 mg/dL 7-18 creatinine, serum 1.10 mg/dL 0.60-1.30 hemoglobin A1C, blood, as % of total hemoglobin 5.8 % 4.3-6.0 Lab Report: Basic Metabolic Panel, HGBA1C, MICROALBUMIN - Chemistry sodium, serum 137 mmol/L 173-093 5371/05/19 potassium, serum 5.2 mmol/L 3.5-5.2 chloride, serum [...] microalbumin, urine 10 0-19 Lab Report: Chlamydia/GC APTIMA/42204, HIV-1/2 Agn/Dominga/91502, RPR (DX) W ... - Chemistry hepatitis B surface antigen NON-REACTIVE NON-REACTIVE Lab Report: Chlamydia/GC APTIMA/07024, HIV-1/2 Agn/Dominga/30440, RPR (DX) W ... - Lab chlamydia DNA probe NOT DETECTED NOT DETECTED Lab Report: Chlamydia/GC APTIMA/32578, HIV-1/2 Agn/Dominga/64585, RPR (DX) W ... - Microbiology Neisseria gonorrhoeae DNA probe NOT DETECTED NOT DETECTED Lab Report: Chlamydia/GC APTIMA/84008, HIV-1/2 Agn/Dominga/47044, RPR (DX) W ... - Serology rapid plasma reagin antibody titer NON-REACTIVE NON-REACTIVE Lab Report: Comp. Metabolic Panel - Chemistry sodium, serum 127 mmol/L 156-851 3135/10/27 potassium, serum 4.1 mmol/L 3.5-5.2 chloride, serum [...] CBC - Chemistry cholesterol, serum 131 mg/dL 568-259 2314/06/03 triglyceride, serum, fasting 383 mg/dL 30-200 HDL [...] 4.7 mg/dL 2.6-7.2 cholesterol, serum 142 mg/dL 404-127 3287/06/26 triglyceride, serum, fasting 272 mg/dL 30-200 HDL [...] mg/dL Encounters Code Encounter Date Provider Facility CPT-56531 Level 3 Est. Patient 14:46:15 JE[facility] Est[facility] Patient 09:34:56 CDT Alina Castaneda MD [facility]-46746 Level 3 Est. Patient 21:40:19 CDT Mima Erazo [facility]-89127 Level 3 Est. Patient 09:26:40 CDT Marvel Charles [facility]-62447 Level 3 Est. Patient 12:36:43 CDT Vanessa Hickey MD [facility]-81292 Level 3 Est. Patient 12:57:49 CDT Vanessa Hickey MD [facility]-69169 Level 3 Est. Patient 00:28:25 CDT Alina Castaneda MD [facility]16593 Level 2 Est. Patient 12:52:14 CDT Alina Castaneda MD [facility]24210 Level 3 Est. Patient 11:51:18 MANAGING PRINCIPAL Alina Castaneda MD [facility]-28187 Level 3 Est. Patient 10:09:22 MANAGING PRINCIPAL Alina Castaneda MD [facility]56493 Level 3 Est. Patient 14:36:26 MANAGING PRINCIPAL Marvel Charles [facility]-12078 Level 3 Est. Patient 13:34:47 MANAGING PRINCIPAL Alina Castaneda MD [facility]-11305 Level 3 Est. Patient 19:52:08 MANAGING PRINCIPAL Alina Castaneda MD [facility]-15055 Level 3 Est. Patient 10:01:51 MANAGING PRINCIPAL Marvel Charles [facility]39638 Level 3 Est. Patient 21:54:06 CDT Vanessa Hickey MD [facility]-67373 Level 3 Est. Patient 08:54:46 CDT Alina Castaneda MD [facility]-13907 Level 3 Est. Patient 09:32:11 CDT Marvel Gurdeepajayestela [facility]-59254 Level 3 Est. Patient 12:02:49 CDT Alina Castaneda MD [facility]-18087 Level 3 Est. Patient 19:17:33 CDT Alina Castaneda MD [facility]29230 Level 3 Est. Patient 13:19:10 CDT Marvle Gurdeepajayestela [facility]-92784 Level 3 Est. Patient 08:20:05 CDT Alina Castaneda MD [facility]-62982 Level 3 Est. Patient 15:17:18 CDT Alina Castaneda MD [facility]-77137 Level 3 Est. Patient 14:25:36 MANAGING PRINCIPAL [facility] Level 3 Est. Patient 10:09:15 MANAGING PRINCIPAL Marvel Charles [facility]-53510 Level 3 Est. Patient 21:28:43 CDT Alina Castaneda MD [facility]-27993 Level 3 Est. Patient 15:20:11 CDT Marvel Araceli [facility]-69306 Level 4 Est. Patient 19:08:12 CDT Alina Castaneda MD [facility]-82475 Level 3 Est. Patient 15:06:39 CDT Marvel Charles [facility]-92278 Level 4 Est. Patient 17:48:15 CDT Alina Castaneda MD [facility]-83542 Level 3 Est. Patient 14:53:49 CDT Alina Castaneda MD [facility]-64033 Level 3 Est. Patient 09:35:16 CDT Alina Castaneda MD [facility]-73443 Level 3 Est. Patient 12:23:22 CDT Alina Castaneda MD [facility]47996 Level 3 Est. Patient 16:19:15 CDT Alina Castaneda MD [facility]-20067 Level 3 Est. Patient 21:39:56 MANAGING PRINCIPAL Alina Castaneda MD [facility]-36673 Level 4 Est. Patient 14:12:56 MANAGING PRINCIPAL Alina Castaneda MD [facility]-61646 Level 2 Est. Patient 15:34:57 MANAGING PRINCIPAL Alina Castaneda MD [facility]-45649 Level 3 Est. Patient 12:17:04 MANAGING PRINCIPAL Alina Castaneda MD [facility]-85029 Level 3 Est. Patient 09:18:18 MANAGING PRINCIPAL Marvel Charles [facility]-03952 Level 2 Est. Patient 21:50:24 CDT Alina Castaneda MD [facility]-81047 Level 3 Est. Patient 09:17:28 CDT Marvel Charles [facility]-14975 Level 4 Est. Patient 18:54:02 CDT Alina Castaneda MD [facility]50655 Level 3 Est. Patient 10:47:10 CDT Alina Castaneda MD [facility]91730 Level 3 Est. Patient 09:22:20 CDT Marvel Charles [facility]-62528 Level 3 Est. Patient 16:39:43 CDT [facility]14 Level 3 Est. Patient 16:05:16 CDT Alina Castandea MD [facility] CPT-33218 Level 3 Est. Patient 00:29:15 CDT Alina Castaneda MD [facility] CPT-68864 Level 3 Est. Patient 10:49:22 MANAGING PRINCIPAL Marvel Gurdeepajayestela [facility] CPT-41986 Level 3 Est. Patient 21:30:19 MANAGING PRINCIPAL Alina Castaneda MD [facility] CPT-56014 Level 4 Est. Patient 17:04:11 MANAGING PRINCIPAL [place] Gurdeepajayestela [facility] CPT-11319 Level 3 Est. Patient 15:34:11 MANAGING PRINCIPAL [facility]-15798 Level 2 Est. Patient 12:51:58 MANAGING PRINCIPAL Alina Castaneda MD [facility] CPT-92356 Level 3 Est. Patient 13:20:01 MANAGING PRINCIPAL Alina Castaneda MD [facility] CPT-66081 Level 3 Est. Patient 09:23:35 CDT Alina Castaneda MD [facility] Procedures Code Procedure Name Date Entry Date Standard Description CPT-39010 Bladder Scan 12:36:44 CDT CPT-56772 Bladder Scan 21:54:06 CDT CPT-G0008 Administration of Influenza Virus Vaccine 13:05:26 CDT CPT-19966 Fluzone Quadrivalent Intramuscular Suspension 0.5 ML 13: 05:26 CDT CPT-75503 Administration single or combination vaccine inc oral 11 :49:51 CDT CPT-18168 Pneumovax 11:49:51 CDT CPT-47942 Ribs unilateral 2V 12:37:22 MANAGING PRINCIPAL CPT-05819 Chest 2V Frontal and Lat 17:15:26 CDT CPT-08220 Abx/Therapy Injection 18:54:02 CDT CPT-J0696 Rocephin 1000 mg (Ceftriaxone) 16:00:32 CDT CPT-95252 Chest 2V Frontal and Lat 15:26:45 CDT CPT-74959 Chest 2V Frontal and Lat 10:23:27 CDT CPT-43811 Venipuncture Draw Fee 10:11:00 CDT CPT-29753 Administration single or combination vaccine inc oral 11 :56:38 CDT CPT-70818 Influenza split virus > age 3 11:56:38 CDT CPT-01858 Venipuncture Draw Fee 08:49:54 MANAGING PRINCIPAL CPT-33761 EKG Trac and Interp 17:54:19 MANAGING PRINCIPAL
--- OUTSIDE RECORDS SUMMARY | 2018-07-02 14:18 | XMS REPORT | Clinical Summary ---
Author Author Admin, TERELL Organization [facility] Address Unknown Phone Unavailable Allergies, 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 Erazo [employer] Benign paroxysmal positional vertigo Vertigo, benign paroxysmal position 386.11 Inactive Mima Erazo [employer] Benign paroxysmal positional vertigo High-risk sexual behavior V69.2 Active Alina Castaneda MD PhD High-risk sexual behavior Erectile dysfunction 302.72 Active Alina Castaneda MD PhD Psychosexual dysfunction with inhibited sexual excitement Constipation 564.00 Active Alina Castaneda MD PhD Constipation, unspecified Skin lesion 709.9 Active Alina Castaneda MD PhD Unspecified disorder of skin and subcutaneous tissue Malaise and fatigue 780.79 Active Cherelle Speaks [employer] Other malaise and fatigue Diarrhea 787.91 Active Cherelle Speaks [employer] Diarrhea PHARYNGITIS 462 Active Cherelle Speaks [employer] Acute pharyngitis Colitis 558.9 Active Mima Erazo [employer] Other and unspecified noninfectious gastroenteritis and colitis WOUND, OPEN, NOSE ICD-873.20 Inactive Alina Castaneda MD PhD DIABETES, TYPE 2 ICD-250.00 Inactive Alina Castaneda MD PhD HYPERTENSION ICD-401.9 Inactive Alina Castaneda MD PhD URI ICD-465.9 Inactive Alina Castaneda MD PhD CHEST PAIN ICD-786.50 Inactive Alina Castaneda MD PhD FH STROKE ICD-V17.1 Inactive Marvel Charles HOSPITALITY RECRUITER FATIGUE ICD-780.79 Inactive Alina Castaneda MD PhD [...] SQ each evening, for diabetes INSULIN DETEMIR 79610425262 Active Salina ROJAS Active TRUEPLUS LANCETS 30G MISC 3 a day LANCETS 65487885024 Active Marvel MENDOZAP Active TOLTERODINE TARTRATE 2 MG TABS 1 pill twice daily, for bladder TOLTERODINE TARTRATE 46453470656 No Longer Active Vanessa Hickey MD Active AMITIZA 24 MCG ORAL CAPS Take one capsule BID for constipation. LUBIPROSTONE 54527642434 No Longer Active aVnessa Hickey MD Active LOMOTIL 2.5-0.025 MG ORAL TABS take 1-2 tabs PO after each stool, no more than 8 in 24 hours DIPHENOXYLATE-ATROPINE 21135328897 Active Grace ROJAS Active FLUVOXAMINE MALEATE 100 MG ORAL TABS take one tab every AM et HS, and take 1/ 2 tab at noon FLUVOXAMINE MALEATE 26728086442 Active Grace ROJAS Active METOPROLOL SUCCINATE 100 MG [id number]-LSO 1 by mouth daily for blood pressure METOPROLOL SUCCINATE 66662884854 No Longer Active Grace Nelsonb RMA Active METFORMIN HCL ER 500 MG [id number]-KBS Take three tablets by mouth everyday METFORMIN HCL 32608413000 No Longer Active Grace Azam RMA Active LOVAZA 1 GM CAPS 4 daily (for triglycerides) OMEGA-3- ACID ETHYL ESTERS 55658020923 No Longer Active Grace Azam RMA Active TRAZODONE HCL 100 MG ORAL TABS 1 tab by mouth for sleep TRAZODONE HCL 59136836171 No Longer Active Grace Azam RMA Active NOVOFINE 32G X 6 MM MISC use one four times per day INSULIN PEN NEEDLE 03842438849 No Longer Active Grace Azam RMA Active BACTROBAN 2 % CREAM Apply to affected area BID for up to 10 days MUPIROCIN CALCIUM 55114888152 No Longer Active Grace Azam RMA Active ZOFRAN 4 MG TABS 1 po q4hr PRN Nausea ONDANSETRON HCL 15412060993 Active Salina Han RMA Active KEFLEX 500 MG CAP 1 po BID x 7 days CEPHALEXIN 40959658455 No Longer Active Cherelle Speaks [employer] Active FLUVOXAMINE MALEATE 100 MG TABS Take one (1) tablet by mouth am, 1/2 at noon FLUVOXAMINE MALEATE 70629827789 No Longer Active Mima Erazo [employer] Active CORICIDIN HBP CONGESTION/COUGH 10-200 MG ORAL CAPS Take as directed on box as needed for cold/flu symptoms DEXTROMETHORPHAN-GUAIFENESIN 98534307115 Active Cherelle Speaks [employer] Active OMEGA-3 300 MG ORAL CAPS 4 caps by mouth daily OMEGA-3 FATTY ACIDS 57623564288 Active Cherelle Speaks [employer] Active FLUVOXAMINE MALEATE 100 MG ORAL TABS Take 1/2 tab at noon FLUVOXAMINE MALEATE 53507872018 No Longer Active Cherelle Avila [employer] Active [facility] LUBRICANT EYE DROPS 0.4-0.3 % OPHTH SOLN POLYETHYL GLYCOL-PROPYL GLYCOL 53744110451 Active Mima Erazo [employer] Active CLONAZEPAM 1 MG TABS 1/2 pill by mouth three times daily CLONAZEPAM 75230274588 Active Alina Castaneda MD PhD Active MIRALAX POWD 17g by mouth daily, for constipation POLYETHYLENE GLYCOL 3350 79501310913 Active Alina Castaneda MD PhD Active HYDROCODONE-ACETAMINOPHEN 5-325 MG TABS 2 tabs by mouth three times daily for pain HYDROCODONE-ACETAMINOPHEN 32580913849 Active Mima Erazo [employer] Active HUMALOG KWIKPEN 100 UNIT/ML SC SOPN 20 units with breakfast, 10 units with lunch, 10 units with dinner, for diabetes INSULIN LISPRO (HUMAN ) 01837608343 Active Alina Castaneda MD PhD Active LATUDA 120 MG ORAL TABS 1 pill by mouth nightly LURASIDONE HCL 26474509047 Active Alina Castaneda MD PhD Active COLACE 100 MG CAPS 1 pill by mouth twice daily, for constipation DOCUSATE SODIUM 00612128834 Active Alina Castaneda MD PhD Active TRUETEST TEST STRP check blood sugars 3x/day GLUCOSE BLOOD 57711502424 Active Marvel Thurstonari HOSPITALITY RECRUITER Active ACCU-CHEK ROSA UZMA Use device to check blood sugars BLOOD GLUCOSE MONITORING SUPPL 56414037602 No Longer Active Marvel Mackenzieglari LOPEZ Active ACCU-CHEK ROSA INVITR STRP use strips with device to check blood sugars 3 times daily GLUCOSE BLOOD 44881382715 No Longer Active Marvel MENDOZAP Active VERAPAMIL HCL ER 180 MG ORAL CR-TABS 1 pill by mouth twice daily, for migraine prevention VERAPAMIL HCL 73507508796 Active Alina Castaneda MD PhD Active CYCLOBENZAPRINE HCL 10 MG TABS 1 tablet by mouth three times daily, scheduled CYCLOBENZAPRINE HCL 05411586882 No Longer Active Alina Castaneda MD PhD Active HUMALOG 100 UNIT/ML SOLN Take 20 units with breakfast, 10u with lunch and suppetr. INSULIN LISPRO (HUMAN) 18086383363 No Longer Active Alina Castaneda MD PhD Active TRUETEST TEST STRP check sugars 4x/day GLUCOSE BLOOD 70977607608 No Longer Active Alina Castaneda MD PhD Active MORPHINE SULFATE 30 MG TABS 1 pill by mouth twice daily, for pain MORPHINE SULFATE 99377239616 Active Mima Erazo [employer] Active ACYCLOVIR 400 MG ORAL TABS 1 pill three times daily x 5 days, for cold sore outbreak ACYCLOVIR 74717091358 No Longer Active Alina Castaneda MD PhD Active PENICILLIN V POTASSIUM 500 MG TABS 1 pill by mouth three times daily PENICILLIN V POTASSIUM 88277163260 No Longer Active Alina Castaneda MD PhD Active UROXATRAL 10 MG LB71O-HBR Take 1 tablet by mouth daily ALFUZOSIN HCL 86922479609 No Longer Active Alina Castaneda MD PhD Active THIOTHIXENE 5 MG CAPS by mouth twice a day THIOTHIXENE 69294267595 No Longer Active Alina Castaneda MD PhD Active ZYPREXA 7.5 MG TABS 1 at HS OLANZAPINE 20945419080 No Longer Active Alina Castaneda MD PhD Active BD INSULIN SYRINGE 28G X 1/2" 1 ML MISC 1 four times per day INSULIN SYRINGE-NEEDLE U-100 30564506237 Active [facility] Gurdeepglestela [facility] Active DETROL LA 4 MG AA09S-BPR Take 1 tablet by mouth daily TOLTERODINE TARTRATE 42344811997 No Longer Active Alina Castaneda MD PhD Active TERESE CONTOUR TEST STRP monitor blood sugars 3x/day GLUCOSE BLOOD 87550020482 No Longer Active Alina Castaneda MD PhD Active EQL TRUETEST TEST STRP Test blood sugar TID GLUCOSE BLOOD 25242819312 No Longer Active Alina aCstaneda MD PhD Active FLUTICASONE PROPIONATE 50 MCG/ACT SUSP 2 sprays each nostril qDay x 30 days FLUTICASONE PROPIONATE 57771058469 No Longer Active Alina Castaneda MD PhD Active IBUPROFEN 200 MG TABS 1 Q 6 hr. PRN IBUPROFEN 62555944144 No Longer Active Alina Castaneda MD PhD Active NIACIN ER 500 MG CR-TABS 4 qHS (for triglycerides) NIACIN 46822750996 No Longer Active Alina Castaneda MD PhD Active ALFUZOSIN HCL ER 10 MG VZ17V-CAL 1 tablet daily ALFUZOSIN HCL 40962844489 Active Vanessa Hickey MD Active SAPHRIS 5 MG SUBL by mouth twice a day ASENAPINE MALEATE 01173427396 No Longer Active Maliheh Ziglari HOSPITALITY RECRUITER Active ACETAMINOPHEN 500 MG TABS 2 Q 6 hr. PRN ACETAMINOPHEN 87345290702 No Longer Active Maliheh Ziglari HOSPITALITY RECRUITER Active ORPHENADRINE CITRATE ER 100 MG XZ30W-GDL 1 every 12 hr. as needed ORPHENADRINE CITRATE 19931067336 No Longer Active Alina Castaneda MD PhD Active NIACIN CR 500 MG CR-TABS 2 qHS NIACIN 12264815615 No Longer Active Alina Castaneda MD PhD Active AMOXICILLIN 500 MG CAPS 2 po BID x 10 days AMOXICILLIN 04046777822 No Longer Active Alina Castaneda MD PhD Active HYDROCODONE-ACETAMINOPHEN 7.5-325 MG TABS 1 four times a day as needed for pain HYDROCODONE-ACETAMINOPHEN 85565966212 No Longer Active Alina Castaneda MD PhD Active DOXEPIN HCL 10 MG CAPS Take 1 tablet by mouth daily DOXEPIN HCL 78304958786 No Longer Active Salina ROJAS Active NAVANE 10 MG CAPS 1/2 tablet twice a day THIOTHIXENE No Longer Active Salina ROBBINSA Active CYCLOBENZAPRINE HCL 10 MG TABS 1/2 tablet by mouth every 8 hours as needed for muscle spasms CYCLOBENZAPRINE HCL 81575643874 No Longer Active Alina Castaneda MD PhD Active BACTROBAN 2 % CREAM apply to ear and nose twice daily MUPIROCIN CALCIUM 68136211545 No Longer Active Alina Castaneda MD PhD Active HYDROCODONE-ACETAMINOPHEN 5-325 MG TABS take one tablet by mouth every four hours as needed for pain HYDROCODONE-ACETAMINOPHEN 32532058390 No Longer Active Alina Castaneda MD PhD Active ZOLPIDEM TARTRATE 10 MG TABS take at bedtime ZOLPIDEM TARTRATE 02247913921 Active Alina Castaneda MD PhD Active ZYPREXA 5 MG TABS take one tablet by mouth every evening OLANZAPINE 30848747875 No Longer Active Alina Castaneda MD PhD Active ALBUTEROL SULFATE 0.083 % NEBU SOLN one vial per nebulizer TID and PRN cough/ soa ALBUTEROL SULFATE 64992973204 No Longer Active Alina Castaneda MD PhD Active GUAIFENESIN 600 MG KL51P-JNP 1 tablet by mouth twice daily if needed for cough GUAIFENESIN 08377828290 No Longer Active Marvel MARROQUIN Active AZITHROMYCIN 500 MG SOLR 1 po q day AZITHROMYCIN 84334949258 No Longer Active Alina Castaneda MD PhD Active PROMETHAZINE-CODEINE 6.25-10 MG/5ML SYRP 1 tsp po q 6 hours prn cough PROMETHAZINE-CODEINE 04121010377 No Longer Active Alina Castaneda MD PhD Active CEFDINIR 300 MG CAPS by mouth twice a day CEFDINIR 18909045947 No Longer Active Alina Castaneda MD PhD Active METFORMIN HCL 500 MG QV77E-XHA Take 3 tablets by mouth everyday METFORMIN HCL 69097435738 No Longer Active Alina Castaneda MD PhD Active LEVEMIR 100 UNIT/ML SOLN 90 units SQ qHS INSULIN DETEMIR 12567347169 No Longer Active Marvel MARROQUIN Active TOPROL XL 100 MG CO87J-UUD 1 @ HS METOPROLOL SUCCINATE 59608507247 No Longer Active Marvel MARROQUIN Active ALLOPURINOL 300 MG TABS Take one by mouth daily ALLOPURINOL 77645740907 Active Alina Castaneda MD PhD Active ZYPREXA 10 MG TABS Take one by mouth daily OLANZAPINE 88096122865 No Longer Active Alina Castaneda MD PhD Active NOVOLOG 100 UNIT/ML SOLN 40 units with every meal INSULIN ASPART 09871578604 No Longer Active Alina Castaneda MD PhD Active VERAPAMIL HCL CR 120 MG TAB CR 1 qPM VERAPAMIL HCL 82849403647 No Longer Active Salina ROJAS Active ZYPREXA 15 MG TABS Take 1 tablet by mouth daily OLANZAPINE 34738297573 No Longer Active Marvel MARROQUIN Active LISINOPRIL 20 MG TABS 1 BID LISINOPRIL 91959984569 Active Alina Castaneda MD PhD Active ALBUTEROL SULFATE (2.5 MG/3ML) 0.083% NEBU 1 neb tid and prn cough ALBUTEROL SULFATE 77171516949 No Longer Active Alina Castaneda MD PhD Active TRAVATAN Z 0.004 % SOLN 1 gtt each eye daily TRAVOPROST 17488027046 Active CRYSTAL Suarez Active LANTUS 100 UNIT/ML SOLN 60 units sq q hs INSULIN GLARGINE 64503751205 No Longer Active CRYSTAL Suarez Active ALBUTEROL SULFATE (2.5 MG/3ML) 0.083% NEBU 1 neb tid and prn cough ALBUTEROL SULFATE (2.5 MG/3ML) 0.083% NEBU 069580 ALBUTEROL SULFATE Inactive ZYPREXA 15 MG TABS Take 1 tablet by mouth daily ZYPREXA 15 MG TABS 648370 OLANZAPINE Inactive VERAPAMIL HCL CR 120 MG TAB CR 1 qPM VERAPAMIL HCL CR 120 MG TAB CR VERAPAMIL HCL Inactive ZYPREXA 10 MG TABS Take one by mouth daily ZYPREXA 10 MG TABS 254824 OLANZAPINE Inactive TOPROL XL 100 MG FI03W-INV 1 @ HS TOPROL XL 100 MG AL89W-RBF METOPROLOL SUCCINATE Inactive LEVEMIR 100 UNIT/ML SOLN 90 units SQ qHS LEVEMIR 100 UNIT/ML SOLN INSULIN DETEMIR Inactive PROMETHAZINE-CODEINE 6.25-10 MG/5ML SYRP 1 tsp po q 6 hours prn cough PROMETHAZINE-CODEINE 6.25-10 MG/5ML SYRP 087307 PROMETHAZINE- CODEINE Inactive GUAIFENESIN 600 MG GG34Z-AYF 1 tablet by mouth twice daily if needed for cough GUAIFENESIN 600 MG IB47J-HXT GUAIFENESIN Inactive ALBUTEROL SULFATE 0.083 % NEBU SOLN one vial per nebulizer TID and PRN cough/ soa ALBUTEROL SULFATE 0.083 % NEBU SOLN 641824 ALBUTEROL SULFATE Inactive ZYPREXA 5 MG TABS take one tablet by mouth every evening ZYPREXA 5 MG TABS 878012 OLANZAPINE Inactive HYDROCODONE-ACETAMINOPHEN 5-325 MG TABS take one tablet by mouth every four hours as needed for pain HYDROCODONE-ACETAMINOPHEN 5-325 MG TABS 418577 HYDROCODONE-ACETAMINOPHEN Inactive BACTROBAN 2 % CREAM apply to ear and nose twice daily BACTROBAN 2 % CREAM 469219 MUPIROCIN CALCIUM Inactive CYCLOBENZAPRINE HCL 10 MG TABS 1/2 tablet by mouth every 8 hours as needed for muscle spasms CYCLOBENZAPRINE HCL 10 MG TABS 538099 CYCLOBENZAPRINE HCL Inactive NAVANE 10 MG CAPS 1/2 tablet twice a day NAVANE 10 MG CAPS THIOTHIXENE Inactive DOXEPIN HCL 10 MG CAPS Take 1 tablet by mouth daily DOXEPIN HCL 10 MG CAPS 1908627 DOXEPIN HCL Inactive HYDROCODONE-ACETAMINOPHEN 7.5-325 MG TABS 1 four times a day as needed for pain HYDROCODONE-ACETAMINOPHEN 7.5-325 MG TABS 635368 HYDROCODONE-ACETAMINOPHEN Inactive NIACIN CR 500 MG CR-TABS 2 qHS NIACIN CR 500 MG CR- TABS NIACIN Inactive ORPHENADRINE CITRATE ER 100 MG [id number]-ANS 1 every 12 hr. as needed ORPHENADRINE CITRATE ER 100 MG EA43V-MHU ORPHENADRINE CITRATE Inactive ACETAMINOPHEN 500 MG TABS 2 Q 6 hr. PRN ACETAMINOPHEN 500 MG TABS 614370 ACETAMINOPHEN Inactive SAPHRIS 5 MG SUBL by mouth twice a day SAPHRIS 5 MG SUBL ASENAPINE MALEATE Inactive NIACIN ER 500 MG CR-TABS 4 qHS (for triglycerides) NIACIN ER 500 MG CR-TABS NIACIN Inactive IBUPROFEN 200 MG TABS 1 Q 6 hr. PRN IBUPROFEN 200 MG TABS 567768 IBUPROFEN Inactive FLUTICASONE PROPIONATE 50 MCG/ACT SUSP 2 sprays each nostril qDay x 30 days FLUTICASONE PROPIONATE 50 MCG/ACT SUSP 701252 FLUTICASONE PROPIONATE Inactive EQL TRUETEST TEST STRP Test blood sugar TID EQL TRUETEST TEST STRP GLUCOSE BLOOD Inactive TERESE CONTOUR TEST STRP monitor blood sugars 3x/day TERESE CONTOUR TEST STRP GLUCOSE BLOOD Inactive DETROL LA 4 MG YV74Y-KTH Take 1 tablet by mouth daily DETROL LA 4 MG SG05X-MZN TOLTERODINE TARTRATE Inactive ZYPREXA 7.5 MG TABS 1 at HS ZYPREXA 7.5 MG TABS 856319 OLANZAPINE Inactive THIOTHIXENE 5 MG CAPS by mouth twice a day THIOTHIXENE 5 MG CAPS 030129 THIOTHIXENE Inactive UROXATRAL 10 MG AO94W-MFE Take 1 tablet by mouth daily UROXATRAL 10 MG JX67P-OCE ALFUZOSIN HCL Inactive ACYCLOVIR 400 MG ORAL TABS 1 pill three times daily x 5 days, for cold sore outbreak ACYCLOVIR 400 MG ORAL TABS 771687 ACYCLOVIR Inactive TRUETEST TEST STRP check sugars 4x/day TRUETEST TEST STRP GLUCOSE BLOOD Inactive HUMALOG 100 UNIT/ML SOLN Take 20 units with breakfast, 10u with lunch and suppetr. HUMALOG 100 UNIT/ML SOLN INSULIN LISPRO ( HUMAN) Inactive CYCLOBENZAPRINE HCL 10 MG TABS 1 tablet by mouth three times daily, scheduled CYCLOBENZAPRINE HCL 10 MG TABS 463979 CYCLOBENZAPRINE HCL Inactive ACCU-CHEK ROSA INVITR STRP use strips with device to check blood sugars 3 times daily ACCU-CHEK ROSA INVITR STRP GLUCOSE BLOOD Inactive ACCU-CHEK ROSA UZMA Use device to check blood sugars ACCU-CHEK ROSA UZMA BLOOD GLUCOSE MONITORING SUPPL Inactive FLUVOXAMINE MALEATE 100 MG ORAL TABS Take 1/2 tab at noon FLUVOXAMINE MALEATE 100 MG ORAL TABS 352710 FLUVOXAMINE MALEATE Inactive FLUVOXAMINE MALEATE 100 MG TABS Take one (1) tablet by mouth am, 1/2 at noon FLUVOXAMINE MALEATE 100 MG TABS 200242 FLUVOXAMINE MALEATE Inactive BACTROBAN 2 % CREAM Apply to affected area BID for up to 10 days BACTROBAN 2 % CREAM 484012 MUPIROCIN CALCIUM Inactive NOVOFINE 32G X 6 MM MISC use one four times per day NOVOFINE 32G X 6 MM MISC INSULIN PEN NEEDLE Inactive TRAZODONE HCL 100 MG ORAL TABS 1 tab by mouth for sleep TRAZODONE HCL 100 MG ORAL TABS 019177 TRAZODONE HCL Inactive LOVAZA 1 GM CAPS 4 daily (for triglycerides) LOVAZA 1 GM CAPS 945915 VTGDK-6-DYGM ETHYL ESTERS Inactive METFORMIN HCL ER 500 MG LM09D-JYB Take three tablets by mouth everyday METFORMIN HCL ER 500 MG TB28V-JEX METFORMIN HCL Inactive METOPROLOL SUCCINATE 100 MG EE75E-NYK 1 by mouth daily for blood pressure METOPROLOL SUCCINATE 100 MG VS68W-RHI METOPROLOL SUCCINATE Inactive AMITIZA 24 MCG ORAL CAPS Take one capsule BID for constipation. AMITIZA 24 MCG ORAL CAPS LUBIPROSTONE Inactive TOLTERODINE TARTRATE 2 MG TABS 1 pill twice daily, for bladder TOLTERODINE TARTRATE 2 MG TABS 080992 TOLTERODINE TARTRATE Inactive CEFDINIR 300 MG CAPS by mouth twice a day CEFDINIR 300 MG CAPS 909154 CEFDINIR Inactive AZITHROMYCIN 500 MG SOLR 1 po q day AZITHROMYCIN 500 MG SOLR 89884470120 AZITHROMYCIN Inactive AMOXICILLIN 500 MG CAPS 2 po BID x 10 days AMOXICILLIN 500 MG CAPS 762313 AMOXICILLIN Inactive PENICILLIN V POTASSIUM 500 MG TABS 1 pill by mouth three times daily PENICILLIN V POTASSIUM 500 MG TABS 689046 PENICILLIN V POTASSIUM Inactive KEFLEX 500 MG CAP 1 po BID x 7 days KEFLEX 500 MG CAP 992507 CEPHALEXIN Inactive Immunizations Vaccine Administration Date Value [...] Fluvirin, Fluarix, Agriflu(>=18 yo)) Fluzone (>3 yrs.) [[id number]] Influenza, seasonal, injectable pneumococcal immunization administered Pneumovax [...] MICROALBUMIN - Chemistry sodium, serum 137 mmol/L 827-299 4987/05/19 potassium, serum 5.2 mmol/L 3.5-5.2 chloride, serum [...] Panel - Chemistry sodium, serum 137 mmol/L 988-527 8377/10/12 potassium, serum 4.8 mmol/L 3.5-5.2 chloride, serum 102 mmol/L 98-107 carbon dioxide, venous blood 27.6 mmol/L 21.0-32.0 blood glucose 168 mg/dL 65-110 calcium, serum 9.0 mg/dL 8.5-10.1 urea nitrogen, blood 15 mg/dL 7-18 creatinine, serum 1.04 mg/dL 0.55-1.30 sodium, serum 138 mmol/L 492-513 3234/11/11 potassium, serum 4.7 mmol/L 3.5-5.2 chloride, serum [...] % 11.6-14.8 platelet count 252 10^3/MM^3 10*3/mm3 875-239 9276/11/11 neutrophils as percent of blood leukocytes 75.0 [...] 240 10^3/MM^3 10*3/mm3 142-424 Lab Report: Chlamydia/GC APTIMA/33331, HIV-1/2 Agn/Dominga/40900, RPR (DX) W ... - Chemistry hepatitis B surface antigen NON-REACTIVE NON-REACTIVE Lab Report: Chlamydia/GC APTIMA/95222, HIV-1/2 Agn/Dominga/52097, RPR (DX) W ... - Lab chlamydia DNA probe NOT DETECTED NOT DETECTED Lab Report: Chlamydia/GC APTIMA/70887, HIV-1/2 Agn/Dominga/00995, RPR (DX) W ... - Microbiology Neisseria gonorrhoeae DNA probe NOT DETECTED NOT DETECTED Lab Report: Chlamydia/GC APTIMA/05230, HIV-1/2 Agn/Dominga/48829, RPR (DX) W ... - Serology rapid [...] 383 mg/dL 30-200 cholesterol, serum 131 mg/dL 302-350 4887/06/03 alanine aminotransferase (SGPT), serum 112 U/L 12-78 [...] 4.7 mg/dL 2.6-7.2 cholesterol, serum 142 mg/dL 392-296 1806/06/26 triglyceride, serum, fasting 272 mg/dL 30-200 HDL [...] negative Encounters Code Encounter Date Provider Facility CPT-55525 Level 3 Est. Patient 14:39:[address] MAGISTRATE Vanessa Hickey MD [facility] CPT-46854 Level 2 Est. Patient 18:43:34 CDT Mima Erazo [facility] CPT-61083 Level 3 Est. Patient 16:22:09 CDT Cherelle Avila [facility] CPT-57331 Level 4 Est. Patient 17:55:14 CDT Mima Erazo [facility] CPT-90858 Level 2 Est. Patient 17:13:21 CDT Alina Castaneda MD PhD [facility] CPT-07145 Level 3 Est. Patient 14:46:15 CDT Vanessa Hickey MD [facility] CPT-65049 Level 3 Est. Patient 09:34:56 CDT Alina Castaneda MD [facility]-99663 Level 3 Est. Patient 21:40:19 CDT Mima Erazo [facility]-56457 Level 3 Est. Patient 09:26:[address] [facility]-95296 Level 3 Est. Patient 12:36:43 CDT Vanessa Hickey MD [facility]-29322 Level 3 Est. Patient 12:57:49 CDT Vanessa Hickey MD [facility]-69149 Level 3 Est. Patient 00:28:25 CDT Alina Castaneda MD [facility]92416 Level 2 Est. Patient 12:52:14 CDT Alina Castaneda MD [facility]-74289 Level 3 Est. Patient 11:51:[address] MAGISTRATE Alina Castaneda MD [facility] CPT-86301 Level 3 Est. Patient 10:09:[address] MAGISTRATE Alina Castaneda MD [facility]-95019 Level 3 Est. Patient 14:36:[address] MAGISTRATE Marvel [facility] CPT-67856 Level 3 Est. Patient 13:34:[address] MAGISTRATE Alina Castaneda MD [facility]-18500 Level 3 Est. Patient 19:52:[address] MAGISTRATE Alina Castaneda MD [facility] CPT-44144 Level 3 Est. Patient 10:01:[address] MAGISTRATE Marvel Charles [facility]-86907 Level 3 Est. Patient 21:54:06 CDT Vanessa Hickey MD [facility]-39872 Level 3 Est. Patient 08:54:46 CDT Alina Castaneda MD [facility]-16721 Level 3 Est. Patient 09:32:11 CDT Marvel Charles [facility]-56619 Level 3 Est. Patient 12:02:49 CDT Alina Castaneda MD [facility]-24341 Level 3 Est. Patient 19:17:33 CDT Alina Castaneda MD [facility]-59127 Level 3 Est. Patient 13:19:10 CDT Marvel Gurdeepajayestela [facility]-07879 Level 3 Est. Patient 08:20:05 CDT Alina Castaneda MD [facility]-98704 Level 3 Est. Patient 15:17:18 CDT Alina Castaneda MD [facility]-82163 Level 3 Est. Patient 14:25:[address] MAGISTRATE Marvel Charles [facility]-33870 Level 3 Est. Patient 10:09:[address] MAGISTRATE [facility] Level 3 Est. Patient 21:28:43 CDT Alina Castaneda MD [facility]-05473 Level 3 Est. Patient 15:20:11 CDT Marvel Araceli [facility]-00290 Level 4 Est. Patient 19:08:12 CDT Alina Castaneda MD [facility]-48020 Level 3 Est. Patient 15:06:39 CDT Brookslashondanivia Araceli [facility]-34888 Level 4 Est. Patient 17:48:15 CDT Alina Castaneda MD [facility]-62991 Level 3 Est. Patient 14:53:49 CDT Alina Castaneda MD [facility]-89072 Level 3 Est. Patient 09:35:16 CDT Alina Castaneda MD [facility]-77566 Level 3 Est. Patient 12:23:22 CDT Alina Castaneda MD [facility]77889 Level 3 Est. Patient 16:19:15 CDT Alina Castaneda MD [facility]-21115 Level 3 Est. Patient 21:39:[address] MAGISTRATE Alina Castaneda MD [facility]-21785 Level 4 Est. Patient 14:12:[address] MAGISTRATE Alina Castaneda MD [facility]73200 Level 2 Est. Patient 15:34:[address] MAGISTRATE Alina Castaneda MD [facility]-75174 Level 3 Est. Patient 12:17:[address] MAGISTRATE Alina Castaneda MD [facility]-95153 Level 3 Est. Patient 09:18:[address] MAGISTRATE Marvel [facility] [facility]690 Level 2 Est. Patient 21:50:24 CDT Alina Castaneda MD [facility]-67654 Level 3 Est. Patient 09:17:28 CDT Marvel [facility]-41407 Level 4 Est. Patient 18:54:02 CDT Alina Castaneda MD [facility]-25605 Level 3 Est. Patient 10:47:10 CDT Alina Castaneda MD [facility]49883 Level 3 Est. Patient 09:22:20 CDT Marvel Charles [facility]-11770 Level 3 Est. Patient 16:39:43 CDT Marvle [facility] CPT-03541 Level 3 Est. Patient 16:05:16 CDT Alina Castaneda MD [facility] CPT-17281 Level 3 Est. Patient 00:29:15 CDT Alina Castaneda MD [facility] CPT-88189 Level 3 Est. Patient 10:49:[address] MAGISTRATE Marvel [facility] CPT-49487 Level 3 Est. Patient 21:30:[address] MAGISTRATE Alina Castaneda MD [facility] CPT-31967 Level 4 Est. Patient 17:04:[address] MAGISTRATE [facility] CPT-31405 Level 3 Est. Patient 15:34:[address] [facility]88367 Level 2 Est. Patient 12:51:[address] MAGISTRATE Alina Castaneda MD [facility] CPT-68003 Level 3 Est. Patient 13:20:[address] MAGISTRATE Alina Castaneda MD [facility] CPT-43726 Level 3 Est. Patient 09:23:35 CDT Alina Castaneda MD [facility] Procedures Code Procedure Name Date Entry Date Standard Description CPT-09982 Bladder Scan 14:39:[address] MAGISTRATE CPT-TCMM Transitional Care Mgmt-Moderate 10:30:[address] MAGISTRATE CPT-87727 Bladder Scan 12:36:44 CDT CPT-77078 Bladder Scan 21:54:06 CDT CPT-G0008 Administration of Influenza Virus Vaccine 13:05:26 CDT CPT-62029 Fluzone Quadrivalent Intramuscular Suspension 0.5 ML 13: 05:26 CDT CPT-56607 Administration single or combination vaccine inc oral 11 :49:51 CDT CPT-72556 Pneumovax 11:49:51 CDT CPT-32080 Ribs unilateral 2V 12:37:[address] MAGISTRATE CPT-53343 Chest 2V Frontal and Lat 17:15:26 CDT CPT-85990 Abx/Therapy Injection 18:54:02 CDT CPT-J0696 Rocephin 1000 mg (Ceftriaxone) 16:00:32 CDT CPT-75400 Chest 2V Frontal and Lat 15:26:45 CDT CPT-27013 Chest 2V Frontal and Lat 10:23:27 CDT CPT-47972 Venipuncture Draw Fee 10:11:00 CDT CPT-73768 Administration single or combination vaccine inc oral 11 :56:38 CDT CPT-58602 Influenza split virus > age 3 11:56:38 CDT CPT-03973 Venipuncture Draw Fee 08:49:[address] MAGISTRATE CPT-95689 EKG Trac and Interp 17:54:[address] MAGISTRATE
--- OUTSIDE RECORDS SUMMARY | 2018-07-02 14:20 | XMS REPORT | Clinical Summary ---
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 Erazo TUBE COVERER Benign paroxysmal positional vertigo Vertigo, benign paroxysmal position 386.11 Inactive Mima Erazo TUBE COVERER Benign paroxysmal positional vertigo High-risk sexual behavior V69.2 Active Alina Castaneda MD PhD High-risk sexual behavior Erectile dysfunction 302.72 Active Alina Castaneda MD PhD Psychosexual dysfunction with inhibited sexual excitement Constipation 564.00 Active Alina Castaneda MD PhD Constipation, unspecified Skin lesion 709.9 Active Alina Castaneda MD PhD Unspecified disorder of skin and subcutaneous tissue Malaise and fatigue 780.79 Active Cherelle Speaks TUBE COVERER Other malaise and fatigue Diarrhea 787.91 Active Cherelle Speaks TUBE COVERER Diarrhea PHARYNGITIS 462 Active Cherelle Speaks TUBE COVERER Acute pharyngitis Colitis 558.9 Active Mima Erazo TUBE COVERER Other and unspecified noninfectious gastroenteritis and colitis WOUND, OPEN, NOSE ICD-873.20 Inactive Alina Castaneda MD PhD DIABETES, TYPE 2 ICD-250.00 Inactive Alina Castaneda MD PhD HYPERTENSION ICD-401.9 Inactive Alina Castaneda MD PhD URI ICD-465.9 Inactive Alina Castaneda MD PhD CHEST PAIN ICD-786.50 Inactive Alina Castaneda MD PhD FH STROKE ICD-V17.1 Inactive Marvel Charles ORDER ENTRY ADMINISTRATOR FATIGUE ICD-780.79 Inactive Alina Castaneda MD PhD [...] PhD Diabetes mellitus, type II, uncontrolled ICD-250.02 Roro Castaneda MD PhD SPECIAL SCREENING FOR MALIGNANT NEOPLASM OF PROSTATE ICD-V76.44 Roro Castaneda MD PhD PNEUMONIA, ORGANISM UNSPECIFIED ICD-486 Roro Castaneda MD PhD Confusion ICD-298.9 Inactive Alina [...] Take one capsule BID for constipation. LUBIPROSTONE 40384706968 Active Mima Erazo APRN Active LOMOTIL 2.5-0.025 MG ORAL TABS take 1-2 tabs PO after each stool, no more than 8 in 24 hours DIPHENOXYLATE-ATROPINE 26859009445 Active Grace Azam RMA Active FLUVOXAMINE MALEATE 100 MG ORAL TABS take one tab every AM et HS, and take 1/ 2 tab at noon FLUVOXAMINE MALEATE 95701466286 Active Grace Azam RMA Active METOPROLOL SUCCINATE 100 MG FL95I-WKI 1 by mouth daily for blood pressure METOPROLOL SUCCINATE 63265457114 No Longer Active Grace Azam RMA Active METFORMIN HCL ER 500 MG JR93K-ADH Take three tablets by mouth everyday METFORMIN HCL 40648796321 No Longer Active Grace Azam ROBBINSA Active LOVAZA 1 GM CAPS 4 daily (for triglycerides) OMEGA-3- ACID ETHYL ESTERS 78280845110 No Longer Active Grace Azam RMA Active TRAZODONE HCL 100 MG ORAL TABS 1 tab by mouth for sleep TRAZODONE HCL 33418095511 No Longer Active Grace Nascimento RMA Active NOVOFINE 32G X 6 MM MISC use one four times per day INSULIN PEN NEEDLE 75298901816 No Longer Active Grace Azam RMA Active BACTROBAN 2 % CREAM Apply to affected area BID for up to 10 days MUPIROCIN CALCIUM 48823411885 No Longer Active Grace Nascimento RMA Active ZOFRAN 4 MG TABS 1 po q4hr PRN Nausea ONDANSETRON HCL 73241130312 Active Salina Han RMA Active KEFLEX 500 MG CAP 1 po BID x 7 days CEPHALEXIN 39811732111 No Longer Active Cherelle Speaks TUBE COVERER Active FLUVOXAMINE MALEATE 100 MG TABS Take one (1) tablet by mouth am, 1/2 at noon FLUVOXAMINE MALEATE 35252293738 No Longer Active Mima Erazo APRN Active CORICIDIN HBP CONGESTION/COUGH 10-200 MG ORAL CAPS Take as directed on box as needed for cold/flu symptoms DEXTROMETHORPHAN-GUAIFENESIN 14273822862 Active Cherelle Speaks TUBE COVERER Active OMEGA-3 300 MG ORAL CAPS 4 caps by mouth daily OMEGA-3 FATTY ACIDS 57982565193 Active Cherelle Speaks TUBE COVERER Active FLUVOXAMINE MALEATE 100 MG ORAL TABS Take 1/2 tab at noon FLUVOXAMINE MALEATE 39773295756 No Longer Active Cherelle Speaks TUBE COVERER Active [facility] LUBRICANT EYE DROPS 0.4-0.3 % OPHTH SOLN POLYETHYL GLYCOL-PROPYL GLYCOL 57304337357 Active Mima Erazo APRN Active CLONAZEPAM 1 MG TABS 1/2 pill by mouth three times daily CLONAZEPAM 95382902765 Active Alina Castaneda MD PhD Active MIRALAX POWD 17g by mouth daily, for constipation POLYETHYLENE GLYCOL 3350 13983512734 Active Alina Castaneda MD PhD Active HYDROCODONE-ACETAMINOPHEN 5-325 MG TABS 2 tabs by mouth three times daily for pain HYDROCODONE-ACETAMINOPHEN 49948635281 Active Mima Erazo TUBE COVERER Active HUMALOG KWIKPEN 100 UNIT/ML SC SOPN 20 units with breakfast, 10 units with lunch, 10 units with dinner, for diabetes INSULIN LISPRO (HUMAN ) 92792540279 Active Alina Castaneda MD PhD Active LEVEMIR FLEXTOUCH 100 UNIT/ML SC SOPN 70 units SQ each evening, for diabetes INSULIN DETEMIR 44741372279 Active Alina Castaneda MD PhD Active LATUDA 120 MG ORAL TABS 1 pill by mouth nightly LURASIDONE HCL 67775258321 Active Alina Castaneda MD PhD Active COLACE 100 MG CAPS 1 pill by mouth twice daily, for constipation DOCUSATE SODIUM 59792496944 Active Alina Castaneda MD PhD Active TRUETEST TEST STRP check blood sugars 3x/day GLUCOSE BLOOD 20368429690 Active MallashondaN-Trig Ziglari ORDER ENTRY ADMINISTRATOR Active ACCU-CHEK ROSA UZMA Use device to check blood sugars BLOOD GLUCOSE MONITORING SUPPL 49058800329 No Longer Active MalihN-Trig Ziglari ORDER ENTRY ADMINISTRATOR Active ACCU-CHEK ROSA INVITR STRP use strips with device to check blood sugars 3 times daily GLUCOSE BLOOD 93200449087 No Longer Active MallashondaN-Trig 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 ORDER ENTRY ADMINISTRATOR Active VERAPAMIL HCL ER 180 MG ORAL CR-TABS 1 pill by mouth twice daily, for migraine prevention VERAPAMIL HCL 53862017887 Active Alina Castaneda MD PhD Active CYCLOBENZAPRINE HCL 10 MG TABS 1 tablet by mouth three times daily, scheduled CYCLOBENZAPRINE HCL 73062342520 No Longer Active Alina Castaneda MD PhD Active HUMALOG 100 UNIT/ML SOLN Take 20 units with breakfast, 10u with lunch and suppetr. INSULIN LISPRO (HUMAN) 94027870487 No Longer Active Alina Castaneda MD PhD Active TRUETEST TEST STRP check sugars 4x/day GLUCOSE BLOOD 87735884322 No Longer Active Alina Castaneda MD PhD Active MORPHINE SULFATE 30 MG TABS 1 pill by mouth twice daily, for pain MORPHINE SULFATE 23890930484 Active Mima Erazo APRN Active ACYCLOVIR 400 MG ORAL TABS 1 pill three times daily x 5 days, for cold sore outbreak ACYCLOVIR 52664100172 No Longer Active Alina Castaneda MD PhD Active PENICILLIN V POTASSIUM 500 MG TABS 1 pill by mouth three times daily PENICILLIN V POTASSIUM 19496663836 No Longer Active Alina Castaneda MD PhD Active UROXATRAL 10 MG GJ30L-WPN Take 1 tablet by mouth daily ALFUZOSIN HCL 52438205489 No Longer Active Alina Castaneda MD PhD Active THIOTHIXENE 5 MG CAPS by mouth twice a day THIOTHIXENE 07438082281 No Longer Active Alina Castaneda MD PhD Active ZYPREXA 7.5 MG TABS 1 at HS OLANZAPINE 47481805054 No Longer Active Alina Castaneda MD PhD Active BD INSULIN SYRINGE 28G X 1/2" 1 ML MISC 1 four times per day INSULIN SYRINGE-NEEDLE U-100 37308852173 Active Marvel Charles [facility] Active TOLTERODINE TARTRATE 2 MG TABS 1 pill twice daily, for bladder TOLTERODINE TARTRATE 08691226764 Active Alina Castaneda MD PhD Active DETROL LA 4 MG [id number]-AUQ Take 1 tablet by mouth daily TOLTERODINE TARTRATE 06356318007 No Longer Active Alina Castaneda MD PhD Active TERESE CONTOUR TEST STRP monitor blood sugars 3x/day GLUCOSE BLOOD 40131253900 No Longer Active Alina Castaneda MD PhD Active EQL TRUETEST TEST STRP Test blood sugar TID GLUCOSE BLOOD 29316491578 No Longer Active Alina Castaneda MD PhD Active FLUTICASONE PROPIONATE 50 MCG/ACT SUSP 2 sprays each nostril qDay x 30 days FLUTICASONE PROPIONATE 90099683679 No Longer Active Alina Castaneda MD PhD Active IBUPROFEN 200 MG TABS 1 Q 6 hr. PRN IBUPROFEN 66347564845 No Longer Active Alina Castaneda MD PhD Active NIACIN ER 500 MG CR-TABS 4 qHS (for triglycerides) NIACIN 53056721972 No Longer Active Alina Castaneda MD PhD Active ALFUZOSIN HCL ER 10 MG RZ59C-NPC 1 tablet daily ALFUZOSIN HCL 44933658134 Active Vanessa Hickey MD Active SAPHRIS 5 MG SUBL by mouth twice a day ASENAPINE MALEATE 37158994419 No Longer Active Maliheh Ziglari ORDER ENTRY ADMINISTRATOR Active ACETAMINOPHEN 500 MG TABS 2 Q 6 hr. PRN ACETAMINOPHEN 13845131421 No Longer Active Maliheh Ziglari ORDER ENTRY ADMINISTRATOR Active ORPHENADRINE CITRATE ER 100 MG NQ90C-VNU 1 every 12 hr. as needed ORPHENADRINE CITRATE 72862798629 No Longer Active Alina Castaneda MD PhD Active NIACIN CR 500 MG CR-TABS 2 qHS NIACIN 10727342298 No Longer Active Alina Castaneda MD PhD Active AMOXICILLIN 500 MG CAPS 2 po BID x 10 days AMOXICILLIN 39541762800 No Longer Active Alina Castaneda MD PhD Active HYDROCODONE-ACETAMINOPHEN 7.5-325 MG TABS 1 four times a day as needed for pain HYDROCODONE-ACETAMINOPHEN 65104679534 No Longer Active Alina Castaneda MD PhD Active DOXEPIN HCL 10 MG CAPS Take 1 tablet by mouth daily DOXEPIN HCL 11457673259 No Longer Active Salina ROJAS Active NAVANE 10 MG CAPS 1/2 tablet twice a day THIOTHIXENE No Longer Active Salina ROJAS Active CYCLOBENZAPRINE HCL 10 MG TABS 1/2 tablet by mouth every 8 hours as needed for muscle spasms CYCLOBENZAPRINE HCL 26228271608 No Longer Active Alina Castaneda MD PhD Active BACTROBAN 2 % CREAM apply to ear and nose twice daily MUPIROCIN CALCIUM 66274805778 No Longer Active Alina Castaneda MD PhD Active HYDROCODONE-ACETAMINOPHEN 5-325 MG TABS take one tablet by mouth every four hours as needed for pain HYDROCODONE-ACETAMINOPHEN 14937630873 No Longer Active Alina Castaneda MD PhD Active ZOLPIDEM TARTRATE 10 MG TABS take at bedtime ZOLPIDEM TARTRATE 42808140040 Active Alina Castaneda MD PhD Active ZYPREXA 5 MG TABS take one tablet by mouth every evening OLANZAPINE 01594664859 No Longer Active Alina Castaneda MD PhD Active ALBUTEROL SULFATE 0.083 % NEBU SOLN one vial per nebulizer TID and PRN cough/ soa ALBUTEROL SULFATE 89323796093 No Longer Active Alina Castaneda MD PhD Active GUAIFENESIN 600 MG ZR39T-SES 1 tablet by mouth twice daily if needed for cough GUAIFENESIN 02454024671 No Longer Active Marvel MARROQUIN Active AZITHROMYCIN 500 MG SOLR 1 po q day AZITHROMYCIN 05214815988 No Longer Active Alina Castaneda MD PhD Active PROMETHAZINE-CODEINE 6.25-10 MG/5ML SYRP 1 tsp po q 6 hours prn cough PROMETHAZINE-CODEINE 94653999840 No Longer Active Alina Castaneda MD PhD Active CEFDINIR 300 MG CAPS by mouth twice a day CEFDINIR 60547627750 No Longer Active Alina Castaneda MD PhD Active METFORMIN HCL 500 MG PU14F-GZL Take 3 tablets by mouth everyday METFORMIN HCL 84040786936 No Longer Active Alina Castaneda MD PhD Active LEVEMIR 100 UNIT/ML SOLN 90 units SQ qHS INSULIN DETEMIR 85668175558 No Longer Active Marvel MARROQUIN Active TOPROL XL 100 MG IC08Q-PLZ 1 @ HS METOPROLOL SUCCINATE 47575563095 No Longer Active Marvel MARROQUIN Active ALLOPURINOL 300 MG TABS Take one by mouth daily ALLOPURINOL 79587588446 Active Alina Castaneda MD PhD Active ZYPREXA 10 MG TABS Take one by mouth daily OLANZAPINE 44595632969 No Longer Active Alina Castaneda MD PhD Active NOVOLOG 100 UNIT/ML SOLN 40 units with every meal INSULIN ASPART 86642349103 No Longer Active Alina Castaneda MD PhD Active VERAPAMIL HCL CR 120 MG TAB CR 1 qPM VERAPAMIL HCL 21770547678 No Longer Active Salina ROBBINSA Active ZYPREXA 15 MG TABS Take 1 tablet by mouth daily OLANZAPINE 43473659624 No Longer Active Marvel MARROQUIN Active LISINOPRIL 20 MG TABS 1 BID LISINOPRIL 51022060489 Active Alina Castaneda MD PhD Active ALBUTEROL SULFATE (2.5 MG/3ML) 0.083% NEBU 1 neb tid and prn cough ALBUTEROL SULFATE 48598106613 No Longer Active Alina Castaneda MD PhD Active TRAVATAN Z 0.004 % SOLN 1 gtt each eye daily TRAVOPROST 21864990738 Active CRYSTAL Suarez Active LANTUS 100 UNIT/ML SOLN 60 units sq q hs INSULIN GLARGINE 76775746544 No Longer Active CRYSTAL Suarez Active ALBUTEROL SULFATE (2.5 MG/3ML) 0.083% NEBU 1 neb tid and prn cough ALBUTEROL SULFATE (2.5 MG/3ML) 0.083% NEBU 438865 ALBUTEROL SULFATE Inactive ZYPREXA 15 MG TABS Take 1 tablet by mouth daily ZYPREXA 15 MG TABS 178128 OLANZAPINE Inactive VERAPAMIL HCL CR 120 MG TAB CR 1 qPM VERAPAMIL HCL CR 120 MG TAB CR VERAPAMIL HCL Inactive ZYPREXA 10 MG TABS Take one by mouth daily ZYPREXA 10 MG TABS 675548 OLANZAPINE Inactive TOPROL XL 100 MG [id number] 1 @ HS TOPROL XL 100 MG TZ58E-MUP METOPROLOL SUCCINATE Inactive LEVEMIR 100 UNIT/ML SOLN 90 units SQ qHS LEVEMIR 100 UNIT/ML SOLN INSULIN DETEMIR Inactive PROMETHAZINE-CODEINE 6.25-10 MG/5ML SYRP 1 tsp po q 6 hours prn cough PROMETHAZINE-CODEINE 6.25-10 MG/5ML SYRP 871048 PROMETHAZINE- CODEINE Inactive GUAIFENESIN 600 MG FK27P-VEB 1 tablet by mouth twice daily if needed for cough GUAIFENESIN 600 MG KZ92O-JYR GUAIFENESIN Inactive ALBUTEROL SULFATE 0.083 % NEBU SOLN one vial per nebulizer TID and PRN cough/ soa ALBUTEROL SULFATE 0.083 % NEBU SOLN 137851 ALBUTEROL SULFATE Inactive ZYPREXA 5 MG TABS take one tablet by mouth every evening ZYPREXA 5 MG TABS 157825 OLANZAPINE Inactive HYDROCODONE-ACETAMINOPHEN 5-325 MG TABS take one tablet by mouth every four hours as needed for pain HYDROCODONE-ACETAMINOPHEN 5-325 MG TABS 875753 HYDROCODONE-ACETAMINOPHEN Inactive BACTROBAN 2 % CREAM apply to ear and nose twice daily BACTROBAN 2 % CREAM 970649 MUPIROCIN CALCIUM Inactive CYCLOBENZAPRINE HCL 10 MG TABS 1/2 tablet by mouth every 8 hours as needed for muscle spasms CYCLOBENZAPRINE HCL 10 MG TABS 240204 CYCLOBENZAPRINE HCL Inactive NAVANE 10 MG CAPS 1/2 tablet twice a day NAVANE 10 MG CAPS THIOTHIXENE Inactive DOXEPIN HCL 10 MG CAPS Take 1 tablet by mouth daily DOXEPIN HCL 10 MG CAPS 9391002 DOXEPIN HCL Inactive HYDROCODONE-ACETAMINOPHEN 7.5-325 MG TABS 1 four times a day as needed for pain HYDROCODONE-ACETAMINOPHEN 7.5-325 MG TABS 640770 HYDROCODONE-ACETAMINOPHEN Inactive NIACIN CR 500 MG CR-TABS 2 qHS NIACIN CR 500 MG CR- TABS NIACIN Inactive ORPHENADRINE CITRATE ER 100 MG [id number] 1 every 12 hr. as needed ORPHENADRINE CITRATE ER 100 MG VZ03R-DJF ORPHENADRINE CITRATE Inactive ACETAMINOPHEN 500 MG TABS 2 Q 6 hr. PRN ACETAMINOPHEN 500 MG TABS 361708 ACETAMINOPHEN Inactive SAPHRIS 5 MG SUBL by mouth twice a day SAPHRIS 5 MG SUBL ASENAPINE MALEATE Inactive NIACIN ER 500 MG CR-TABS 4 qHS (for triglycerides) NIACIN ER 500 MG CR-TABS NIACIN Inactive IBUPROFEN 200 MG TABS 1 Q 6 hr. PRN IBUPROFEN 200 MG TABS 480990 IBUPROFEN Inactive FLUTICASONE PROPIONATE 50 MCG/ACT SUSP 2 sprays each nostril qDay x 30 days FLUTICASONE PROPIONATE 50 MCG/ACT SUSP 523728 FLUTICASONE PROPIONATE Inactive EQL TRUETEST TEST STRP Test blood sugar TID EQL TRUETEST TEST STRP GLUCOSE BLOOD Inactive TERESE CONTOUR TEST STRP monitor blood sugars 3x/day TERESE CONTOUR TEST STRP GLUCOSE BLOOD Inactive DETROL LA 4 MG ZU23G-JNN Take 1 tablet by mouth daily DETROL LA 4 MG VS36G-KHA TOLTERODINE TARTRATE Inactive ZYPREXA 7.5 MG TABS 1 at HS ZYPREXA 7.5 MG TABS 500579 OLANZAPINE Inactive THIOTHIXENE 5 MG CAPS by mouth twice a day THIOTHIXENE 5 MG CAPS 215466 THIOTHIXENE Inactive UROXATRAL 10 MG SI49X-LYT Take 1 tablet by mouth daily UROXATRAL 10 MG AC91I-JWD ALFUZOSIN HCL Inactive ACYCLOVIR 400 MG ORAL TABS 1 pill three times daily x 5 days, for cold sore outbreak ACYCLOVIR 400 MG ORAL TABS 379789 ACYCLOVIR Inactive TRUETEST TEST STRP check sugars 4x/day TRUETEST TEST STRP GLUCOSE BLOOD Inactive HUMALOG 100 UNIT/ML SOLN Take 20 units with breakfast, 10u with lunch and suppetr. HUMALOG 100 UNIT/ML SOLN INSULIN LISPRO ( HUMAN) Inactive CYCLOBENZAPRINE HCL 10 MG TABS 1 tablet by mouth three times daily, scheduled CYCLOBENZAPRINE HCL 10 MG TABS 461775 CYCLOBENZAPRINE HCL Inactive ACCU-CHEK ROSA INVITR STRP use strips with device to check blood sugars 3 times daily ACCU-CHEK ROSA INVITR STRP GLUCOSE BLOOD Inactive ACCU-CHEK ROSA UZMA Use device to check blood sugars ACCU-CHEK ROSA UZMA BLOOD GLUCOSE MONITORING SUPPL Inactive FLUVOXAMINE MALEATE 100 MG ORAL TABS Take 1/2 tab at noon FLUVOXAMINE MALEATE 100 MG ORAL TABS 474210 FLUVOXAMINE MALEATE Inactive FLUVOXAMINE MALEATE 100 MG TABS Take one (1) tablet by mouth am, 1/2 at noon FLUVOXAMINE MALEATE 100 MG TABS 168433 FLUVOXAMINE MALEATE Inactive BACTROBAN 2 % CREAM Apply to affected area BID for up to 10 days BACTROBAN 2 % CREAM 753266 MUPIROCIN CALCIUM Inactive NOVOFINE 32G X 6 MM MISC use one four times per day NOVOFINE 32G X 6 MM MISC INSULIN PEN NEEDLE Inactive TRAZODONE HCL 100 MG ORAL TABS 1 tab by mouth for sleep TRAZODONE HCL 100 MG ORAL TABS 003983 TRAZODONE HCL Inactive LOVAZA 1 GM CAPS 4 daily (for triglycerides) LOVAZA 1 GM CAPS 402488 GGSXT-4-WKOE ETHYL ESTERS Inactive METFORMIN HCL ER 500 MG GC94B-EIF Take three tablets by mouth everyday METFORMIN HCL ER 500 MG OT50G-MEG METFORMIN HCL Inactive METOPROLOL SUCCINATE 100 MG ZE24L-WYB 1 by mouth daily for blood pressure METOPROLOL SUCCINATE 100 MG GC19Q-OIZ METOPROLOL SUCCINATE Inactive CEFDINIR 300 MG CAPS by mouth twice a day CEFDINIR 300 MG CAPS 411952 CEFDINIR Inactive AZITHROMYCIN 500 MG SOLR 1 po q day AZITHROMYCIN 500 MG SOLR 75443702874 AZITHROMYCIN Inactive AMOXICILLIN 500 MG CAPS 2 po BID x 10 days AMOXICILLIN 500 MG CAPS 936238 AMOXICILLIN Inactive PENICILLIN V POTASSIUM 500 MG TABS 1 pill by mouth three times daily PENICILLIN V POTASSIUM 500 MG TABS 531222 PENICILLIN V POTASSIUM Inactive KEFLEX 500 MG CAP 1 po BID x 7 days KEFLEX 500 MG CAP 098754 CEPHALEXIN Inactive Immunizations Vaccine Administration Date Value [...] Fluvirin, Fluarix, Agriflu(>=18 yo)) Fluzone (>3 yrs.) [[id number]] Influenza, seasonal, injectable pneumococcal immunization administered Pneumovax [...] MICROALBUMIN - Chemistry sodium, serum 137 mmol/L 874-182 8101/05/19 potassium, serum 5.2 mmol/L 3.5-5.2 chloride, serum [...] Panel - Chemistry sodium, serum 137 mmol/L 348-304 5523/10/12 potassium, serum 4.8 mmol/L 3.5-5.2 chloride, serum 102 mmol/L 98-107 carbon dioxide, venous blood 27.6 mmol/L 21.0-32.0 blood glucose 168 mg/dL 65-110 calcium, serum 9.0 mg/dL 8.5-10.1 urea nitrogen, blood 15 mg/dL 7-18 creatinine, serum 1.04 mg/dL 0.55-1.30 sodium, serum 138 mmol/L 649-676 2135/11/11 potassium, serum 4.7 mmol/L 3.5-5.2 chloride, serum [...] % 11.6-14.8 platelet count 252 10^3/MM^3 10*3/mm3 606-570 4082/10/12 leukocyte count, blood 5.8 10^3/MM^3 10*3/mm3 4.6-10.2 [...] 240 10^3/MM^3 10*3/mm3 142-424 Lab Report: Chlamydia/GC APTIMA/80197, HIV-1/2 Agn/Dominga/11924, RPR (DX) W ... - Chemistry hepatitis B surface antigen NON-REACTIVE NON-REACTIVE Lab Report: Chlamydia/GC APTIMA/81396, HIV-1/2 Agn/Dominga/89300, RPR (DX) W ... - Lab chlamydia DNA probe NOT DETECTED NOT DETECTED Lab Report: Chlamydia/GC APTIMA/07818, HIV-1/2 Agn/Dominga/94868, RPR (DX) W ... - Microbiology Neisseria gonorrhoeae DNA probe NOT DETECTED NOT DETECTED Lab Report: Chlamydia/GC APTIMA/86261, HIV-1/2 Agn/Dominga/63005, RPR (DX) W ... - Serology rapid plasma reagin antibody titer NON-REACTIVE NON-REACTIVE Lab Report: HGBA1C - Chemistry hemoglobin A1C, blood, as % of total hemoglobin 6.1 % 4.3-6.0 Lab Report: Lipid Panel, HEPATIC PANEL, MICROALBUMIN, CBC - Chemistry cholesterol, serum 131 mg/dL 484-426 0220/06/03 alanine aminotransferase (SGPT), serum 112 U/L 12-78 bilirubin, serum, total 0.30 mg/dL 0.00-1.00 aspartate aminotransferase (SGOT), serum 52 U/L 15-37 LDL cholesterol, serum 31 mg/dL 0-130 HDL cholesterol, serum 23 mg/dL 32-96 triglyceride, serum, fasting 383 mg/dL 30-200 albumin/creatinine ratio, urine < 30 mg/g mg/g{creat} [...] 4.7 mg/dL 2.6-7.2 cholesterol, serum 142 mg/dL 227-449 7723/06/26 triglyceride, serum, fasting 272 mg/dL 30-200 HDL [...] specific gravity, urine 1.020 1.000-1.030 Office Visit: 6 mo f/u uroxatrol - [...] negative Encounters Code Encounter Date Provider Facility CPT-69759 Level 3 Est. Patient 14:39:00 CHOIR TEACHER Vanessa Hickey MD [facility] CPT-07634 Level 2 Est. Patient 18:43:34 CDT Mima Erazo [facility] CPT-69504 Level 3 Est. Patient 16:22:09 CDT Cherelle Avila [facility] CPT-05170 Level 4 Est. Patient 17:55:14 CDT Mima Erazo [facility] CPT-37276 Level 2 Est. Patient 17:13:21 CDT Alina Castaneda MD PhD [facility] CPT-65121 Level 3 Est. Patient 14:46:15 CDT Vanessa Hickey MD [facility]-05036 Level 3 Est. Patient 09:34:56 CDT Alina Castaneda MD [facility]73923 Level 3 Est. Patient 21:40:19 CDT Mima Erazo [facility]-92268 Level 3 Est. Patient 09:26:40 CDT Marvel Charles [facility]-75201 Level 3 Est. Patient 12:36:43 CDT Vanessa Hickey MD [facility]-57577 Level 3 Est. Patient 12:57:49 CDT Vanessa Hickey MD [facility]-20000 Level 3 Est. Patient 00:28:25 CDT Alina Castaneda MD [facility]-34822 Level 2 Est. Patient 12:52:14 CDT Alina Castaneda MD [facility]-97194 Level 3 Est. Patient 11:51:18 CHOIR TEACHER Alina Castaneda MD [facility]-03465 Level 3 Est. Patient 10:09:22 CHOIR TEACHER Alina Castaneda MD [facility]-97993 Level 3 Est. Patient 14:36:26 [facility] [place]13238 Level 3 Est. Patient 13:34:47 CHOIR TEACHER Alina Castaneda MD [facility]-57399 Level 3 Est. Patient 19:52:08 CHOIR TEACHER Alina Castaneda MD [facility]-98455 Level 3 Est. Patient 10:01:51 CHOIR TEACHER Marvel Charles [facility]-49021 Level 3 Est. Patient 21:54:06 CDT Vanessa Hickey MD [facility]-55183 Level 3 Est. Patient 08:54:46 CDT Alina Castaneda MD [facility]-48442 Level 3 Est. Patient 09:32:11 CDT Marvel Charles [facility]-02105 Level 3 Est. Patient 12:02:49 CDT Alina Castaneda MD [facility]-96885 Level 3 Est. Patient 19:17:33 CDT Alina Castaneda MD [facility]36465 Level 3 Est. Patient 13:19:10 CDT Marvel Charles [facility]-61460 Level 3 Est. Patient 08:20:05 CDT Alina Castaneda MD [facility]43171 Level 3 Est. Patient 15:17:18 CDT Alina Castaneda MD [facility]27152 Level 3 Est. Patient 14:25:36 CHOIR TEACHER Marvel Charles [facility]-20422 Level 3 Est. Patient 10:09:15 CHOIR TEACHER Marvel Charles [facility]-24956 Level 3 Est. Patient 21:28:43 CDT Alina Castaneda MD [facility]-96458 Level 3 Est. Patient 15:20:11 [facility] Patient 19:08:12 CDT Alina Castaneda MD [facility]-65431 Level 3 Est. Patient 15:06:39 [facility] Level 4 Est. Patient 17:48:15 CDT Alina Castaneda MD [facility]-68744 Level 3 Est. Patient 14:53:49 CDT Alina Castaneda MD [facility]-26750 Level 3 Est. Patient 09:35:16 CDT Alina Castaneda MD [facility]21551 Level 3 Est. Patient 12:23:22 CDT Alina Castaneda MD [facility]11864 Level 3 Est. Patient 16:19:15 CDT Alina Castaneda MD [facility]-70337 Level 3 Est. Patient 21:39:56 CHOIR TEACHER Alina Castaneda MD [facility]-57888 Level 4 Est. Patient 14:12:56 CHOIR TEACHER Alina Castaneda MD [facility]81038 Level 2 Est. Patient 15:34:57 CHOIR TEACHER Alina Castaneda MD [facility]28214 Level 3 Est. Patient 12:17:04 CHOIR TEACHER Alina Castaneda MD [facility]78322 Level 3 Est. Patient 09:18:18 CHOIR TEACHER Marvel Charles [facility]-43621 Level 2 Est. Patient 21:50:24 CDT Alina Castaneda MD [facility]76669 Level 3 Est. Patient 09:17:28 CDT Marvel Charles [facility]-26003 Level 4 Est. Patient 18:54:02 CDT Alina Castaneda MD [facility]77002 Level 3 Est. Patient 10:47:10 CDT Alina Castaneda MD [facility]-86039 Level 3 Est. Patient 09:22:20 CDT Marvel Charles [facility]-20318 Level 3 Est. Patient 16:39:43 CDT Marvel Charles [facility] [place]-87051 Level 3 Est. Patient 16:05:16 CDT Alina Castaneda MD [facility]68264 Level 3 Est. Patient 00:29:15 CDT Alina Castaneda MD [facility] Level 3 Est. Patient 10:49:22 [facility] Level 3 Est. Patient 21:30:19 CHOIR TEACHER Alina Castaneda MD [facility] CPT-16323 Level 4 Est. Patient 17:04:11 CHOIR TEACHER [facility] CPT-01091 Level 3 Est. Patient 15:34:11 CHOIR TEACHER [facility] CPT-31978 Level 2 Est. Patient 12:51:58 CHOIR TEACHER Alina Castaneda MD [facility] CPT-67685 Level 3 Est. Patient 13:20:01 CHOIR TEACHER Alina Castaneda MD [facility] CPT-60077 Level 3 Est. Patient 09:23:35 CDT Alina Castaneda MD [facility] Procedures Code Procedure Name Date Entry Date Standard Description CPT-23320 Bladder Scan 14:39:01 [employer] TE[employer]ER CPT-TCMM Transitional Care Mgmt-Moderate 10:30:19 [employer]IR TE[employer]ER CPT-26875 Bladder Scan 12:36:44 CDT CPT-57238 Bladder Scan 21:54:06 CDT CPT-G0008 Administration of Influenza Virus Vaccine 13:05:26 CDT CPT-63740 Fluzone Quadrivalent Intramuscular Suspension 0.5 ML 13: 05:26 CDT CPT-45677 Administration single or combination vaccine inc oral 11 :49:51 CDT CPT-54944 Pneumovax 11:49:51 CDT CPT-52285 Ribs unilateral 2V 12:37:22 [employer] TE[employer] CPT-67183 Chest 2V Frontal and Lat 17:15:26 CDT CPT-82957 Abx/Therapy Injection 18:54:02 CDT CPT-J0696 Rocephin 1000 mg (Ceftriaxone) 16:00:32 CDT CPT-31374 Chest 2V Frontal and Lat 15:26:45 CDT CPT-07391 Chest 2V Frontal and Lat 10:23:27 CDT CPT-75745 Venipuncture Draw Fee 10:11:00 CDT CPT-05164 Administration single or combination vaccine inc oral 11 :56:38 CDT CPT-93247 Influenza split virus > age 3 11:56:38 CDT CPT-98992 Venipuncture Draw Fee 08:49:54 [employer] TE[employer]ER CPT-84590 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
--- OUTSIDE RECORDS SUMMARY | 2018-07-02 14:21 | XMS REPORT | Clinical Summary ---
Author Author Admin, TERELL Organization [facility] Address Unknown Phone Unavailable Allergies, Adverse [...] positional vertigo 386.11 Active Mima Erazo HEALTH EDUCATION DIRECTOR Benign paroxysmal positional vertigo Vertigo, benign paroxysmal position 386.11 Inactive Mima Erazo HEALTH EDUCATION DIRECTOR Benign paroxysmal positional vertigo High-risk sexual behavior V69.2 Active Alina Castaneda MD PhD High-risk sexual behavior Erectile dysfunction 302.72 Active Alina Castaneda MD PhD Psychosexual dysfunction with inhibited sexual excitement Constipation 564.00 Active Alina Castaneda MD PhD Constipation, unspecified Skin lesion 709.9 Active Alina Castaneda MD PhD Unspecified disorder of skin and subcutaneous tissue Malaise and fatigue 780.79 Active Cherelle Speaks HEALTH EDUCATION DIRECTOR Other malaise and fatigue Diarrhea 787.91 Active Cherelle Speaks HEALTH EDUCATION DIRECTOR Diarrhea PHARYNGITIS 462 Active Cherelle Speaks HEALTH EDUCATION DIRECTOR Acute pharyngitis Colitis 558.9 Active Mima Erazo HEALTH EDUCATION DIRECTOR Other and unspecified noninfectious gastroenteritis and colitis WOUND, OPEN, NOSE ICD-873.20 Inactive Alina Castaneda MD PhD DIABETES, TYPE 2 ICD-250.00 Inactive Alina Castaneda MD PhD HYPERTENSION ICD-401.9 Inactive Alina Castaneda MD PhD URI ICD-465.9 Inactive Alina Castaneda MD PhD CHEST PAIN ICD-786.50 Inactive Alina Castaneda MD PhD FH STROKE ICD-V17.1 Inactive Marvel Charles AIRPORT PLANNER FATIGUE ICD-780.79 Inactive Alina Castaneda MD PhD [...] mouth twice daily, for constipation DOCUSATE SODIUM 67683821820 No Longer Active Mima Erazo APRN Active FLONASE ALLERGY RELIEF 50 MCG/ACT NASAL SUSP One spray each nostril BID x 1 week then daily FLUTICASONE PROPIONATE 33373040741 Active Mimacecily Erazo APRN Active BD PEN NEEDLE MINI U/F 31G X 5 MM MISC 4 a day INSULIN PEN NEEDLE 07974873714 Active Mallashondaeh Ziglari AIRPORT PLANNER Active AMITIZA 24 MCG ORAL CAPS Take one capsule BID for constipation LUBIPROSTONE 16217061589 Active Mimacecily Erazo APRN Active LEVEMIR FLEXTOUCH 100 UNIT/ML SC SOPN 75 units SQ each evening, for diabetes INSULIN DETEMIR 83182317025 Active Mima Erazo APRN Active TRUEPLUS LANCETS 30G MISC 3 a day LANCETS 72526858832 Active Mallashondaeh Ziglari AIRPORT PL[employer]NER Active TOLTERODINE TARTRATE 2 MG TABS 1 pill twice daily, for bladder TOLTERODINE TARTRATE 18668595574 No Longer Active Vanessa Hickey MD Active AMITIZA 24 MCG ORAL CAPS Take one capsule BID for constipation. LUBIPROSTONE 32277031335 No Longer Active Vanessa Hickey MD Active LOMOTIL 2.5-0.025 MG ORAL TABS take 1-2 tabs PO after each stool, no more than 8 in 24 hours DIPHENOXYLATE-ATROPINE 48927559481 Active Grace Nascimento RMA Active FLUVOXAMINE MALEATE 100 MG ORAL TABS take one tab every AM et HS, and take 1/ 2 tab at noon FLUVOXAMINE MALEATE 17298154931 Active Gracekailee Nascimento RMA Active METOPROLOL SUCCINATE 100 MG [id number]-UOH 1 by mouth daily for blood pressure METOPROLOL SUCCINATE 52565476313 No Longer Active Grace Nascimento RMA Active METFORMIN HCL ER 500 MG [id number] Take three tablets by mouth everyday METFORMIN HCL 73982488270 No Longer Active Grace Nascimento RMA Active LOVAZA 1 GM CAPS 4 daily (for triglycerides) OMEGA-3- ACID ETHYL ESTERS 94923409024 No Longer Active Grace Nascimento RMA Active TRAZODONE HCL 100 MG ORAL TABS 1 tab by mouth for sleep TRAZODONE HCL 56558184908 No Longer Active Grace Nascimento RMA Active NOVOFINE 32G X 6 MM MISC use one four times per day INSULIN PEN NEEDLE 63127856715 No Longer Active Grace Nascimento RMA Active BACTROBAN 2 % CREAM Apply to affected area BID for up to 10 days MUPIROCIN CALCIUM 65674627463 No Longer Active Grace Nascimento RMA Active ZOFRAN 4 MG TABS 1 po q4hr PRN Nausea ONDANSETRON HCL 34719902696 Active Salina Han RMA Active KEFLEX 500 MG CAP 1 po BID x 7 days CEPHALEXIN 63878059778 No Longer Active Cherelle Avila APRN Active FLUVOXAMINE MALEATE 100 MG TABS Take one (1) tablet by mouth am, 1/2 at noon FLUVOXAMINE MALEATE 19056740939 No Longer Active Mima Erazo HEALTH EDUCATION DIRECTOR Active CORICIDIN HBP CONGESTION/COUGH 10-200 MG ORAL CAPS Take as directed on box as needed for cold/flu symptoms DEXTROMETHORPHAN-GUAIFENESIN 15441822767 Active Cherelle Speaks HEALTH EDUCATION DIRECTOR Active OMEGA-3 300 MG ORAL CAPS 4 caps by mouth daily OMEGA-3 FATTY ACIDS 92858947551 Active Mima Erazo HEALTH EDUCATION DIRECTOR Active FLUVOXAMINE MALEATE 100 MG ORAL TABS Take 1/2 tab at noon FLUVOXAMINE MALEATE 91676650087 No Longer Active Cherelle Speaks HEALTH EDUCATION DIRECTOR Active [facility] LUBRICANT EYE DROPS 0.4-0.3 % OPHTH SOLN POLYETHYL GLYCOL-PROPYL GLYCOL 80594475508 Active Mima Erazo HEALTH EDUCATION DIRECTOR Active CLONAZEPAM 1 MG TABS 1/2 pill by mouth three times daily CLONAZEPAM 43067376027 Active Mason Loredo MD Active MIRALAX POWD 17g by mouth daily, for constipation POLYETHYLENE GLYCOL 3350 45424638805 Active Alina Castaneda MD PhD Active HYDROCODONE-ACETAMINOPHEN 5-325 MG TABS 2 tabs by mouth three times daily for pain HYDROCODONE-ACETAMINOPHEN 63811078239 Active Mima Erazo HEALTH EDUCATION DIRECTOR Active HUMALOG KWIKPEN 100 UNIT/ML SC SOPN 20 units with breakfast, 10 units with lunch, 10 units with dinner, for diabetes INSULIN LISPRO (HUMAN ) 57068058150 Active Alina Castaneda MD PhD Active LATUDA 120 MG ORAL TABS 1 pill by mouth nightly LURASIDONE HCL 77010791558 Active Alina Castaneda MD PhD Active TRUETEST TEST STRP check blood sugars 3x/day GLUCOSE BLOOD 41689990025 Active Marvel Charles AIRPORT PLANNER Active ACCU-CHEK ROSA UZMA Use device to check blood sugars BLOOD GLUCOSE MONITORING SUPPL 12092900981 No Longer Active Marvel Charles AIRPORT PLANNER Active ACCU-CHEK ROSA INVITR STRP use strips with device to check blood sugars 3 times daily GLUCOSE BLOOD 14277358716 No Longer Active Marvel MARROQUIN Active VERAPAMIL HCL ER 180 MG ORAL CR-TABS 1 pill by mouth twice daily, for migraine prevention VERAPAMIL HCL 33434775046 Active CRYSTAL Rodrigues Active CYCLOBENZAPRINE HCL 10 MG TABS 1 tablet by mouth three times daily, scheduled CYCLOBENZAPRINE HCL 10562349708 No Longer Active Alina Castaneda MD PhD Active HUMALOG 100 UNIT/ML SOLN Take 20 units with breakfast, 10u with lunch and suppetr. INSULIN LISPRO (HUMAN) 19478452353 No Longer Active Alina Castaneda MD PhD Active TRUETEST TEST STRP check sugars 4x/day GLUCOSE BLOOD 78818773058 No Longer Active Alina Castaneda MD PhD Active MORPHINE SULFATE 30 MG TABS 1 pill by mouth twice daily, for pain MORPHINE SULFATE 00797204680 Active Mason Loredo MD Active ACYCLOVIR 400 MG ORAL TABS 1 pill three times daily x 5 days, for cold sore outbreak ACYCLOVIR 50996018319 No Longer Active Alina Castaneda MD PhD Active PENICILLIN V POTASSIUM 500 MG TABS 1 pill by mouth three times daily PENICILLIN V POTASSIUM 90035647199 No Longer Active Alina Castaneda MD PhD Active UROXATRAL 10 MG [id number]-ULR Take 1 tablet by mouth daily ALFUZOSIN HCL 81873749364 No Longer Active Alina Castaneda MD PhD Active THIOTHIXENE 5 MG CAPS by mouth twice a day THIOTHIXENE 11990205734 No Longer Active Alina Castaneda MD PhD Active ZYPREXA 7.5 MG TABS 1 at HS OLANZAPINE 00625805331 No Longer Active Alina Castaneda MD PhD Active BD INSULIN SYRINGE 28G X 1/2" 1 ML MISC 1 four times per day INSULIN SYRINGE-NEEDLE U-100 07512479926 Active Marvel MARROQUIN Active DETROL LA 4 MG [id number]-CID Take 1 tablet by mouth daily TOLTERODINE TARTRATE 77460925960 No Longer Active Alina Castaneda MD PhD Active TERESE CONTOUR TEST STRP monitor blood sugars 3x/day GLUCOSE BLOOD 42725388396 No Longer Active Alina Castaneda MD PhD Active EQL TRUETEST TEST STRP Test blood sugar TID GLUCOSE BLOOD 77374191689 No Longer Active Alina Castaneda MD PhD Active FLUTICASONE PROPIONATE 50 MCG/ACT SUSP 2 sprays each nostril qDay x 30 days FLUTICASONE PROPIONATE 71387835650 No Longer Active Alina Castaneda MD PhD Active IBUPROFEN 200 MG TABS 1 Q 6 hr. PRN IBUPROFEN 33621503416 No Longer Active Alina Castaneda MD PhD Active NIACIN ER 500 MG CR-TABS 4 qHS (for triglycerides) NIACIN 29957644650 No Longer Active Alina Castaneda MD PhD Active ALFUZOSIN HCL ER 10 MG [id number] 1 tablet daily ALFUZOSIN HCL 18615376646 Active CRYSTAL Rodrigues Active SAPHRIS 5 MG SUBL by mouth twice a day ASENAPINE MALEATE 45372789185 No Longer Active Marvel MARROQUIN Active ACETAMINOPHEN 500 MG TABS 2 Q 6 hr. PRN ACETAMINOPHEN 42407168284 No Longer Active Marvel MARROQUIN Active ORPHENADRINE CITRATE ER 100 MG [id number] 1 every 12 hr. as needed ORPHENADRINE CITRATE 73743006245 No Longer Active Alina Castaneda MD PhD Active NIACIN CR 500 MG CR-TABS 2 qHS NIACIN 51742285474 No Longer Active Alina Castaneda MD PhD Active AMOXICILLIN 500 MG CAPS 2 po BID x 10 days AMOXICILLIN 49384798745 No Longer Active Alina Castaneda MD PhD Active HYDROCODONE-ACETAMINOPHEN 7.5-325 MG TABS 1 four times a day as needed for pain HYDROCODONE-ACETAMINOPHEN 12032435344 No Longer Active Alina Castaneda MD PhD Active DOXEPIN HCL 10 MG CAPS Take 1 tablet by mouth daily DOXEPIN HCL 35231854056 No Longer Active Salina Han A Active NAVANE 10 MG CAPS 1/2 tablet twice a day THIOTHIXENE No Longer Active Salina Han A Active CYCLOBENZAPRINE HCL 10 MG TABS 1/2 tablet by mouth every 8 hours as needed for muscle spasms CYCLOBENZAPRINE HCL 08137323105 No Longer Active Alina Castaneda MD PhD Active BACTROBAN 2 % CREAM apply to ear and nose twice daily MUPIROCIN CALCIUM 40438184097 No Longer Active Alina Castaneda MD PhD Active HYDROCODONE-ACETAMINOPHEN 5-325 MG TABS take one tablet by mouth every four hours as needed for pain HYDROCODONE-ACETAMINOPHEN 38944202203 No Longer Active Alina Castaneda MD PhD Active ZOLPIDEM TARTRATE 10 MG TABS take at bedtime ZOLPIDEM TARTRATE 22082977756 Active Alina Castaneda MD PhD Active ZYPREXA 5 MG TABS take one tablet by mouth every evening OLANZAPINE 54702508984 No Longer Active Alina Castaneda MD PhD Active ALBUTEROL SULFATE 0.083 % NEBU SOLN one vial per nebulizer TID and PRN cough/ soa ALBUTEROL SULFATE 38626606267 No Longer Active Alina Castaneda MD PhD Active GUAIFENESIN 600 MG [id number] 1 tablet by mouth twice daily if needed for cough GUAIFENESIN 48349814356 No Longer Active Marvel MARROQUIN Active AZITHROMYCIN 500 MG SOLR 1 po q day AZITHROMYCIN 98168865301 No Longer Active Alina Castaneda MD PhD Active PROMETHAZINE-CODEINE 6.25-10 MG/5ML SYRP 1 tsp po q 6 hours prn cough PROMETHAZINE-CODEINE 48141464643 No Longer Active Alina Castaneda MD PhD Active CEFDINIR 300 MG CAPS by mouth twice a day CEFDINIR 83383273939 No Longer Active Alina Castaneda MD PhD Active METFORMIN HCL 500 MG GW88H-LNW Take 3 tablets by mouth everyday METFORMIN HCL 81024634299 No Longer Active Alina Castaneda MD PhD Active LEVEMIR 100 UNIT/ML SOLN 90 units SQ qHS INSULIN DETEMIR 30278803547 No Longer Active Marvel MARROQUIN Active TOPROL XL 100 MG [id number]-QLF 1 @ HS METOPROLOL SUCCINATE 08087910485 No Longer Active Marvel MARROQUIN Active ALLOPURINOL 300 MG TABS Take one by mouth daily ALLOPURINOL 83849035746 Active Mima Erazo HEALTH EDUCATION DIRECTOR Active ZYPREXA 10 MG TABS Take one by mouth daily OLANZAPINE 94896784954 No Longer Active Alina Castaneda MD PhD Active NOVOLOG 100 UNIT/ML SOLN 40 units with every meal INSULIN ASPART 06216997415 No Longer Active Alina Castaneda MD PhD Active VERAPAMIL HCL CR 120 MG TAB CR 1 qPM VERAPAMIL HCL 63423891004 No Longer Active Salina ROJAS Active ZYPREXA 15 MG TABS Take 1 tablet by mouth daily OLANZAPINE 70208684265 No Longer Active Marvel MARROQUIN Active LISINOPRIL 20 MG TABS 1 BID LISINOPRIL 06802991253 Active Alina Castaneda MD PhD Active ALBUTEROL SULFATE (2.5 MG/3ML) 0.083% NEBU 1 neb tid and prn cough ALBUTEROL SULFATE 04057212282 No Longer Active Alina Castaneda MD PhD Active TRAVATAN Z 0.004 % SOLN 1 gtt each eye daily TRAVOPROST 69430936056 Active CRYSTAL Suarez Active LANTUS 100 UNIT/ML SOLN 60 units sq q hs INSULIN GLARGINE 37181470656 No Longer Active CRYSTAL Suarez Active ALBUTEROL SULFATE (2.5 MG/3ML) 0.083% NEBU 1 neb tid and prn cough ALBUTEROL SULFATE (2.5 MG/3ML) 0.083% NEBU 282163 ALBUTEROL SULFATE Inactive ZYPREXA 15 MG TABS Take 1 tablet by mouth daily ZYPREXA 15 MG TABS 769049 OLANZAPINE Inactive VERAPAMIL HCL CR 120 MG TAB CR 1 qPM VERAPAMIL HCL CR 120 MG TAB CR VERAPAMIL HCL Inactive ZYPREXA 10 MG TABS Take one by mouth daily ZYPREXA 10 MG TABS 695235 OLANZAPINE Inactive TOPROL XL 100 MG [id number] 1 @ HS TOPROL XL 100 MG PU77V-LUU METOPROLOL SUCCINATE Inactive LEVEMIR 100 UNIT/ML SOLN 90 units SQ qHS LEVEMIR 100 UNIT/ML SOLN INSULIN DETEMIR Inactive PROMETHAZINE-CODEINE 6.25-10 MG/5ML SYRP 1 tsp po q 6 hours prn cough PROMETHAZINE-CODEINE 6.25-10 MG/5ML SYRP 087670 PROMETHAZINE- CODEINE Inactive GUAIFENESIN 600 MG [id number] 1 tablet by mouth twice daily if needed for cough GUAIFENESIN 600 MG [id number]-TYW GUAIFENESIN Inactive ALBUTEROL SULFATE 0.083 % NEBU SOLN one vial per nebulizer TID and PRN cough/ soa ALBUTEROL SULFATE 0.083 % NEBU SOLN 838856 ALBUTEROL SULFATE Inactive ZYPREXA 5 MG TABS take one tablet by mouth every evening ZYPREXA 5 MG TABS 004465 OLANZAPINE Inactive HYDROCODONE-ACETAMINOPHEN 5-325 MG TABS take one tablet by mouth every four hours as needed for pain HYDROCODONE-ACETAMINOPHEN 5-325 MG TABS 496992 HYDROCODONE-ACETAMINOPHEN Inactive BACTROBAN 2 % CREAM apply to ear and nose twice daily BACTROBAN 2 % CREAM 683516 MUPIROCIN CALCIUM Inactive CYCLOBENZAPRINE HCL 10 MG TABS 1/2 tablet by mouth every 8 hours as needed for muscle spasms CYCLOBENZAPRINE HCL 10 MG TABS 023902 CYCLOBENZAPRINE HCL Inactive NAVANE 10 MG CAPS 1/2 tablet twice a day NAVANE 10 MG CAPS THIOTHIXENE Inactive DOXEPIN HCL 10 MG CAPS Take 1 tablet by mouth daily DOXEPIN HCL 10 MG CAPS 1100141 DOXEPIN HCL Inactive HYDROCODONE-ACETAMINOPHEN 7.5-325 MG TABS 1 four times a day as needed for pain HYDROCODONE-ACETAMINOPHEN 7.5-325 MG TABS 444102 HYDROCODONE-ACETAMINOPHEN Inactive NIACIN CR 500 MG CR-TABS 2 qHS NIACIN CR 500 MG CR- TABS NIACIN Inactive ORPHENADRINE CITRATE ER 100 MG [id number] 1 every 12 hr. as needed ORPHENADRINE CITRATE ER 100 MG [id number] ORPHENADRINE CITRATE Inactive ACETAMINOPHEN 500 MG TABS 2 Q 6 hr. PRN ACETAMINOPHEN 500 MG TABS 660950 ACETAMINOPHEN Inactive SAPHRIS 5 MG SUBL by mouth twice a day SAPHRIS 5 MG SUBL ASENAPINE MALEATE Inactive NIACIN ER 500 MG CR-TABS 4 qHS (for triglycerides) NIACIN ER 500 MG CR-TABS NIACIN Inactive IBUPROFEN 200 MG TABS 1 Q 6 hr. PRN IBUPROFEN 200 MG TABS 709324 IBUPROFEN Inactive FLUTICASONE PROPIONATE 50 MCG/ACT SUSP 2 sprays each nostril qDay x 30 days FLUTICASONE PROPIONATE 50 MCG/ACT SUSP 814697 FLUTICASONE PROPIONATE Inactive EQL TRUETEST TEST STRP Test blood sugar TID EQL TRUETEST TEST STRP GLUCOSE BLOOD Inactive TERESE CONTOUR TEST STRP monitor blood sugars 3x/day TERESE CONTOUR TEST STRP GLUCOSE BLOOD Inactive DETROL LA 4 MG [id number] Take 1 tablet by mouth daily DETROL LA 4 MG [id number]-LHT TOLTERODINE TARTRATE Inactive ZYPREXA 7.5 MG TABS 1 at HS ZYPREXA 7.5 MG TABS 775960 OLANZAPINE Inactive THIOTHIXENE 5 MG CAPS by mouth twice a day THIOTHIXENE 5 MG CAPS 191718 THIOTHIXENE Inactive UROXATRAL 10 MG [id number]-[id number] Take 1 tablet by mouth daily UROXATRAL 10 MG EG61Y-HXF ALFUZOSIN HCL Inactive ACYCLOVIR 400 MG ORAL TABS 1 pill three times daily x 5 days, for cold sore outbreak ACYCLOVIR 400 MG ORAL TABS 422755 ACYCLOVIR Inactive TRUETEST TEST STRP check sugars 4x/day TRUETEST TEST STRP GLUCOSE BLOOD Inactive HUMALOG 100 UNIT/ML SOLN Take 20 units with breakfast, 10u with lunch and suppetr. HUMALOG 100 UNIT/ML SOLN INSULIN LISPRO ( HUMAN) Inactive CYCLOBENZAPRINE HCL 10 MG TABS 1 tablet by mouth three times daily, scheduled CYCLOBENZAPRINE HCL 10 MG TABS 454920 CYCLOBENZAPRINE HCL Inactive ACCU-CHEK ROSA INVITR STRP use strips with device to check blood sugars 3 times daily ACCU-CHEK ROSA INVITR STRP GLUCOSE BLOOD Inactive ACCU-CHEK ROSA UZMA Use device to check blood sugars ACCU-CHEK ROSA UZMA BLOOD GLUCOSE MONITORING SUPPL Inactive FLUVOXAMINE MALEATE 100 MG ORAL TABS Take 1/2 tab at noon FLUVOXAMINE MALEATE 100 MG ORAL TABS 147492 FLUVOXAMINE MALEATE Inactive FLUVOXAMINE MALEATE 100 MG TABS Take one (1) tablet by mouth am, 1/2 at noon FLUVOXAMINE MALEATE 100 MG TABS 157174 FLUVOXAMINE MALEATE Inactive BACTROBAN 2 % CREAM Apply to affected area BID for up to 10 days BACTROBAN 2 % CREAM 630320 MUPIROCIN CALCIUM Inactive NOVOFINE 32G X 6 MM MISC use one four times per day NOVOFINE 32G X 6 MM MISC INSULIN PEN NEEDLE Inactive TRAZODONE HCL 100 MG ORAL TABS 1 tab by mouth for sleep TRAZODONE HCL 100 MG ORAL TABS 550627 TRAZODONE HCL Inactive LOVAZA 1 GM CAPS 4 daily (for triglycerides) LOVAZA 1 GM CAPS 882401 XHDUV-8-IPYF ETHYL ESTERS Inactive METFORMIN HCL ER 500 MG UK48U-IOW Take three tablets by mouth everyday METFORMIN HCL ER 500 MG [id number]-[id number] METFORMIN HCL Inactive METOPROLOL SUCCINATE 100 MG LI43R-KPZ 1 by mouth daily for blood pressure METOPROLOL SUCCINATE 100 MG YK45Z-RRX METOPROLOL SUCCINATE Inactive AMITIZA 24 MCG ORAL CAPS Take one capsule BID for constipation. AMITIZA 24 MCG ORAL CAPS LUBIPROSTONE Inactive TOLTERODINE TARTRATE 2 MG TABS 1 pill twice daily, for bladder TOLTERODINE TARTRATE 2 MG TABS 376950 TOLTERODINE TARTRATE Inactive COLACE 100 MG CAPS 1 pill by mouth twice daily, for constipation COLACE 100 MG CAPS 3868275 DOCUSATE SODIUM Inactive CEFDINIR 300 MG CAPS by mouth twice a day CEFDINIR 300 MG CAPS 302177 CEFDINIR Inactive AZITHROMYCIN 500 MG SOLR 1 po q day AZITHROMYCIN 500 MG SOLR 07415175792 AZITHROMYCIN Inactive AMOXICILLIN 500 MG CAPS 2 po BID x 10 days AMOXICILLIN 500 MG CAPS 964274 AMOXICILLIN Inactive PENICILLIN V POTASSIUM 500 MG TABS 1 pill by mouth three times daily PENICILLIN V POTASSIUM 500 MG TABS 193235 PENICILLIN V POTASSIUM Inactive KEFLEX 500 MG CAP 1 po BID x 7 days KEFLEX 500 MG CAP 951131 CEPHALEXIN Inactive Immunizations Vaccine Administration Date Value [...] Fluvirin, Fluarix, Agriflu(>=18 yo)) Fluzone (>3 yrs.) [[id number]] Influenza, seasonal, injectable pneumococcal immunization administered Pneumovax [...] Panel - Chemistry sodium, serum 137 mmol/L 875-496 5324/10/12 potassium, serum 4.8 mmol/L 3.5-5.2 chloride, serum 102 mmol/L 98-107 carbon dioxide, venous blood 27.6 mmol/L 21.0-32.0 blood glucose 168 mg/dL 65-110 calcium, serum 9.0 mg/dL 8.5-10.1 urea nitrogen, blood 15 mg/dL 7-18 creatinine, serum 1.04 mg/dL 0.55-1.30 sodium, serum 138 mmol/L 347-531 8113/11/11 potassium, serum 4.7 mmol/L 3.5-5.2 chloride, serum [...] % 11.6-14.8 platelet count 240 10^3/MM^3 10*3/mm3 535-446 3284/11/11 leukocyte count, blood 9.6 10^3/MM^3 10*3/mm3 4.6-10.2 [...] Acid - Chemistry cholesterol, serum 187 mg/dL 708-988 2612/06/14 triglyceride, serum, fasting 246 mg/dL 30-200 HDL [...] 4.7 mg/dL 2.6-7.2 cholesterol, serum 142 mg/dL 670-492 2965/06/26 triglyceride, serum, fasting 272 mg/dL 30-200 HDL [...] negative Encounters Code Encounter Date Provider Facility CPT-11164 Level 3 Est. Patient 16:27:51 CDT Mima Erazo [facility] CPT-37184 Level 3 Est. Patient 14:39:00 SPEECH SCIENTIST Vanessa Hickey MD [facility]-22795 Level 2 Est. Patient 18:43:34 CDT Mima Erazo [facility] CPT-08017 Level 3 Est. Patient 16:22:09 CDT Cherelle Avila [facility] CPT-96149 Level 4 Est. Patient 17:55:14 CDT Mima Erazo [facility] CPT-15484 Level 2 Est. Patient 17:13:21 CDT Alina Castaneda MD PhD [facility] CPT-03450 Level 3 Est. Patient 14:46:15 CDT Vanessa Hickey MD [facility]-01595 Level 3 Est. Patient 09:34:56 CDT Alina Castaneda MD PhD [facility]83177 Level 3 Est. Patient 21:40:19 CDT Mima Erazo [facility] CPT-79358 Level 3 Est. Patient 09:26:40 CDT Marvel Charles [facility]-55366 Level 3 Est. Patient 12:36:43 CDT Vanessa Hickey MD [facility]-17472 Level 3 Est. Patient 12:57:49 CDT Vanessa Hickey MD [facility]-84067 Level 3 Est. Patient 00:28:25 CDT Alina Castaneda MD [facility]02750 Level 2 Est. Patient 12:52:14 CDT Alina Castaneda MD [facility]26651 Level 3 Est. Patient 11:51:18 SPEECH SCIENTIST Alina Castaneda MD [facility]35519 Level 3 Est. Patient 10:09:22 SPEECH SCIENTIST Alina Castaneda MD [facility]41526 Level 3 Est. Patient 14:36:26 SPEECH SCIENTIST Marvel Charles [facility] [place]-50086 Level 3 Est. Patient 13:34:47 SPEECH SCIENTIST Alina Castaneda MD [facility]94615 Level 3 Est. Patient 19:52:08 SPEECH SCIENTIST Alina Castaneda MD [facility]95691 Level 3 Est. Patient 10:01:51 SPEECH SCIENTIST Marvel Charles [facility] [place]-90610 Level 3 Est. Patient 21:54:06 CDT Vanessa Hickey MD [facility]-23318 Level 3 Est. Patient 08:54:46 CDT Alina Castaneda MD [facility]23609 Level 3 Est. Patient 09:32:11 CDT Marvel Charles [facility]44398 Level 3 Est. Patient 12:02:49 CDT Alina Castaneda MD [facility]13759 Level 3 Est. Patient 19:17:33 CDT Alina Castaneda MD [facility]-60949 Level 3 Est. Patient 13:19:10 CDT Marvel Gurdeepajayestela [facility] [place]-67323 Level 3 Est. Patient 08:20:05 CDT Alina Castaneda MD [facility]-66747 Level 3 Est. Patient 15:17:18 CDT Alina Castaneda MD [facility]-96708 Level 3 Est. Patient 14:25:36 [facility]ENTIST [facility] [place]-29675 Level 3 Est. Patient 10:09:15 SPEECH SCIENTIST [facility]20717 Level 3 Est. Patient 21:28:43 CDT Alina Castaneda MD [facility]-44162 Level 3 Est. Patient 15:20:11 CDT [facility] [place]-36455 Level 4 Est. Patient 19:08:12 CDT Alina Castaneda MD [facility]-51986 Level 3 Est. Patient 15:06:39 CDT Marvel Araceli [facility] [place]-65127 Level 4 Est. Patient 17:48:15 CDT Alina Castaneda MD [facility]-72255 Level 3 Est. Patient 14:53:49 CDT Alina Castaneda MD [facility]-81934 Level 3 Est. Patient 09:35:16 CDT Alina Castaneda MD [facility]-54443 Level 3 Est. Patient 12:23:22 CDT Alina Castaneda MD [facility]-86502 Level 3 Est. Patient 16:19:15 CDT Alina Castaneda MD [facility]-43356 Level 3 Est. Patient 21:39:56 SPEECH SCIENTIST Alina Castaneda MD [facility]-51931 Level 4 Est. Patient 14:12:56 SPEECH SCIENTIST Alina Castaneda MD [facility]-25946 Level 2 Est. Patient 15:34:57 SPEECH SCIENTIST Alina Castaneda MD [facility]-47937 Level 3 Est. Patient 12:17:04 SPEECH SCIENTIST Alina Castaneda MD [facility]-61744 Level 3 Est. Patient 09:18:18 SPEECH SCIENTIST [facility] [place]-99605 Level 2 Est. Patient 21:50:24 CDT Alina Castaneda MD [facility]-38456 Level 3 Est. Patient 09:17:28 CDT Marvel Charles [facility] [place]-57787 Level 4 Est. Patient 18:54:02 CDT Alina Castaneda MD [facility]-84697 Level 3 Est. Patient 10:47:10 CDT Alina Castaneda MD [facility]-55284 Level 3 Est. Patient 09:22:20 CDT Marvel Charles [facility] [facility]-42147 Level 3 Est. Patient 16:39:43 CDT Marvel Charles [facility] [place]-13102 Level 3 Est. Patient 16:05:16 CDT Alina Castaneda MD [facility]-[address]11 Level 3 Est. Patient 00:29:15 CDT Alina Castaneda MD PhD [facility] CPT-68765 Level 3 Est. Patient 10:49:22 SPEECH SCIENTIST Marvel Charles [facility] CPT-37710 Level 3 Est. Patient 21:30:19 SPEECH SCIENTIST Alina Castaneda MD PhD [facility] CPT-71895 Level 4 Est. Patient 17:04:11 SPEECH SCIENTIST Brooksnivia Mackenzieestela [facility] CPT-97915 Level 3 Est. Patient 15:34:11 SPEECH SCIENTIST [facility] CPT-71460 Level 2 Est. Patient 12:51:58 SPEECH SCIENTIST Alina Castaneda MD [facility] CPT-12472 Level 3 Est. Patient 13:20:01 SPEECH SCIENTIST Alina Castaneda MD PhD [facility] CPT-06359 Level 3 Est. Patient 09:23:35 CDT Alina Castaneda MD PhD [facility] Procedures Code Procedure Name Date Entry Date Standard Description CPT-28992 Bladder Scan 14:39:01 SPEECH SCIENTIST CPT-TCMM Transitional Care Mgmt-Moderate 10:30:19 SPEECH SCIENTIST CPT-26905 Bladder Scan 12:36:44 CDT CPT-17210 Bladder Scan 21:54:06 CDT CPT-G0008 Administration of Influenza Virus Vaccine 13:05:26 CDT CPT-52599 Fluzone Quadrivalent Intramuscular Suspension 0.5 ML 13: 05:26 CDT CPT-32031 Administration single or combination vaccine inc oral 11 :49:51 CDT CPT-18243 Pneumovax 11:49:51 CDT CPT-56089 Ribs unilateral 2V 12:37:22 SPEECH SCIENTIST CPT-56591 Chest 2V Frontal and Lat 17:15:26 CDT CPT-41870 Abx/Therapy Injection 18:54:02 CDT CPT-J0696 Rocephin 1000 mg (Ceftriaxone) 16:00:32 CDT CPT-69965 Chest 2V Frontal and Lat 15:26:45 CDT CPT-95710 Chest 2V Frontal and Lat 10:23:27 CDT CPT-18239 Venipuncture Draw Fee 10:11:00 CDT CPT-27891 Administration single or combination vaccine inc oral 11 :56:38 CDT CPT-64155 Influenza split virus > age 3 11:56:38 CDT CPT-44440 Venipuncture Draw Fee 08:49:54 SPEECH SCIENTIST CPT-00870 EKG Trac and Interp 17:54:19 SPEECH SCIENTIST
--- OUTSIDE RECORDS SUMMARY | 2018-07-02 14:22 | XMS REPORT | Clinical Summary ---
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 Inactive Alina Castaneda MD PhD SKIN LESION ICD-709.9 Inactive Alina Castaneda MD PhD SINUSITIS, ACUTE ICD-461.9 Inactive Alina Castaneda MD PhD SPECIAL SCREENING FOR MALIGNANT NEOPLASM OF PROSTATE ICD-V76.44 Inactive Alina Castaneda MD PhD Confusion ICD-298.9 Inactive Alina Castaneda MD PhD Dizziness ICD-780.4 Inactive Alina Castaneda MD PhD Hypoglycemia ICD-251.2 Inactive Alina Castaneda MD PhD Medication List Medication Instructions Start Date Stop Date Generic Name NDC Status Provider Patient Instruction HUMALOG 100 UNIT/ML SC SOLN 20u am , 10u lunch and supper INSULIN LISPRO (HUMAN) 45213013323 Active Marvel MARROQUIN Active LATUDA 120 MG ORAL TABS 1 pill by mouth nightly LURASIDONE HCL 52707990639 Active Alina Castaneda MD PhD Active COLACE 100 MG CAPS 1 pill by mouth twice daily, for constipation DOCUSATE SODIUM 68053920602 Active Alina Castaneda MD PhD Active TRUETEST TEST STRP check blood sugars 3x/day GLUCOSE BLOOD 35134933034 Active Marvel MENDOZAP Active ACCU-CHEK ROSA UZMA Use device to check blood sugars BLOOD GLUCOSE MONITORING SUPPL 47882504042 No Longer Active Marvel MARROQUIN Active ACCU-CHEK ROSA INVITR STRP use strips with device to check blood sugars 3 times daily GLUCOSE BLOOD 89965325103 No Longer Active Marvel Charles [employer] Active VERAPAMIL HCL ER 180 MG ORAL CR-TABS 1 pill by mouth twice daily, for migraine prevention VERAPAMIL HCL 00731398211 Active Alina Castaneda MD PhD Active CYCLOBENZAPRINE HCL 10 MG TABS 1 tablet by mouth three times daily, scheduled CYCLOBENZAPRINE HCL 87097668777 No Longer Active Alina Castaneda MD PhD Active HUMALOG 100 UNIT/ML SOLN Take 20 units with breakfast, 10u with lunch and suppetr. INSULIN LISPRO (HUMAN) 54468943508 No Longer Active Alina Castaneda MD PhD Active TRUETEST TEST STRP check sugars 4x/day GLUCOSE BLOOD 49168778412 No Longer Active Alina Castaneda MD PhD Active MORPHINE SULFATE 30 MG TABS 1 pill by mouth twice daily, for pain MORPHINE SULFATE 28516272684 Active Mason Loredo MD Active ACYCLOVIR 400 MG ORAL TABS 1 pill three times daily x 5 days, for cold sore outbreak ACYCLOVIR 05572843509 No Longer Active Alina Castaneda MD PhD Active PENICILLIN V POTASSIUM 500 MG TABS 1 pill by mouth three times daily PENICILLIN V POTASSIUM 51917728015 No Longer Active Alina Castaneda MD PhD Active UROXATRAL 10 MG RA87T-UNL Take 1 tablet by mouth daily ALFUZOSIN HCL 25006823864 No Longer Active Alina Castaneda MD PhD Active THIOTHIXENE 5 MG CAPS by mouth twice a day THIOTHIXENE 11250256625 No Longer Active Alina Castaneda MD PhD Active ZYPREXA 7.5 MG TABS 1 at HS OLANZAPINE 63848258900 No Longer Active Alina Castaneda MD PhD Active LEVEMIR 100 UNIT/ML SOLN Take 70 u at 7-8pm INSULIN DETEMIR 60597320535 Active Marvel Charles [employer] Active BD INSULIN SYRINGE 28G X 1/2" 1 ML MISC 1 four times per day INSULIN SYRINGE-NEEDLE U-100 46509184265 Active Marvel MENDOZAP Active TOLTERODINE TARTRATE 2 MG TABS 1 pill twice daily, for bladder TOLTERODINE TARTRATE 99086311396 Active Alina Castaneda MD PhD Active DETROL LA 4 MG KM60P-POD Take 1 tablet by mouth daily TOLTERODINE TARTRATE 43422622917 No Longer Active Alina Castaneda MD PhD Active HYDROCODONE-ACETAMINOPHEN 5-325 MG TABS 2 tabs by mouth three times daily as needed for pain HYDROCODONE-ACETAMINOPHEN 60495677000 Active Alina Castaneda MD PhD Active TERESE CONTOUR TEST STRP monitor blood sugars 3x/day GLUCOSE BLOOD 22371810210 No Longer Active Alina Castaneda MD PhD Active EQL TRUETEST TEST STRP Test blood sugar TID GLUCOSE BLOOD 94275479980 No Longer Active Alina Castaneda MD PhD Active FLUTICASONE PROPIONATE 50 MCG/ACT SUSP 2 sprays each nostril qDay x 30 days FLUTICASONE PROPIONATE 68422162721 No Longer Active Alina Castaneda MD PhD Active IBUPROFEN 200 MG TABS 1 Q 6 hr. PRN IBUPROFEN 92959689165 No Longer Active Alina Castaneda MD PhD Active NIACIN ER 500 MG CR-TABS 4 qHS (for triglycerides) NIACIN 77500248854 No Longer Active Alina Castaneda MD PhD Active ALFUZOSIN HCL ER 10 MG QR56T-HCS 1 tablet daily ALFUZOSIN HCL 75639655104 Active Vanessa Hickey MD Active CLONAZEPAM 1 MG TABS 1 pill by mouth three times daily CLONAZEPAM 37680716244 Active Alina Castaneda MD PhD Active LOVAZA 1 GM CAPS 4 daily (for triglycerides) QVOUT-8-ZBMX ETHYL ESTERS 59506520602 Active Mao Rodriguez MD Active SAPHRIS 5 MG SUBL by mouth twice a day ASENAPINE MALEATE 17716804962 No Longer Active Marvel MARROQUIN Active ACETAMINOPHEN 500 MG TABS 2 Q 6 hr. PRN ACETAMINOPHEN 38470247582 No Longer Active Marvel MARROQUIN Active ORPHENADRINE CITRATE ER 100 MG YC71N-UTQ 1 every 12 hr. as needed ORPHENADRINE CITRATE 61332221263 No Longer Active Alina Castaneda MD PhD Active NIACIN CR 500 MG CR-TABS 2 qHS NIACIN 15926424102 No Longer Active Alina Castaneda MD PhD Active AMOXICILLIN 500 MG CAPS 2 po BID x 10 days AMOXICILLIN 06937244363 No Longer Active Alina Castaneda MD PhD Active HYDROCODONE-ACETAMINOPHEN 7.5-325 MG TABS 1 four times a day as needed for pain HYDROCODONE-ACETAMINOPHEN 31414914190 No Longer Active Alina Castaneda MD PhD Active METFORMIN HCL ER 500 MG UY94Z-UUX Take three tablets by mouth everyday METFORMIN HCL 18343152119 Active Marvel MARROQUIN Active DOXEPIN HCL 10 MG CAPS Take 1 tablet by mouth daily DOXEPIN HCL 30651608878 No Longer Active Salina Ervinford [facility] Active NAVANE 10 MG CAPS 1/2 tablet twice a day THIOTHIXENE No Longer Active Salina Ervinford A Active CYCLOBENZAPRINE HCL 10 MG TABS 1/2 tablet by mouth every 8 hours as needed for muscle spasms CYCLOBENZAPRINE HCL 68662185281 No Longer Active Alina Castaneda MD PhD Active BACTROBAN 2 % CREAM apply to ear and nose twice daily MUPIROCIN CALCIUM 42355951505 No Longer Active Alina Castaneda MD PhD Active HYDROCODONE-ACETAMINOPHEN 5-325 MG TABS take one tablet by mouth every four hours as needed for pain HYDROCODONE-ACETAMINOPHEN 13346844473 No Longer Active Alina Castaneda MD PhD Active ZOLPIDEM TARTRATE 10 MG TABS take at bedtime ZOLPIDEM TARTRATE 34200957645 Active Alina Castaneda MD PhD Active ZYPREXA 5 MG TABS take one tablet by mouth every evening OLANZAPINE 00261705145 No Longer Active Alina Castaneda MD PhD Active ALBUTEROL SULFATE 0.083 % NEBU SOLN one vial per nebulizer TID and PRN cough/ soa ALBUTEROL SULFATE 00308779695 No Longer Active Alina Castaneda MD PhD Active GUAIFENESIN 600 MG [id number]-CDW 1 tablet by mouth twice daily if needed for cough GUAIFENESIN 76442994956 No Longer Active Marvel MARROQUIN Active AZITHROMYCIN 500 MG SOLR 1 po q day AZITHROMYCIN 97638268039 No Longer Active Alina Castaneda MD PhD Active METOPROLOL SUCCINATE 100 MG VH76H-WLA 1 by mouth daily for blood pressure METOPROLOL SUCCINATE 22997018065 Active Alina Castaneda MD PhD Active PROMETHAZINE-CODEINE 6.25-10 MG/5ML SYRP 1 tsp po q 6 hours prn cough PROMETHAZINE-CODEINE 81846824077 No Longer Active Alina Castaneda MD PhD Active CEFDINIR 300 MG CAPS by mouth twice a day CEFDINIR 54937824273 No Longer Active Alina Castaneda MD PhD Active METFORMIN HCL 500 MG RI88D-UHS Take 3 tablets by mouth everyday METFORMIN HCL 87903257215 No Longer Active Alina Castaneda MD PhD Active LEVEMIR 100 UNIT/ML SOLN 90 units SQ qHS INSULIN DETEMIR 62031453622 No Longer Active Marvel MARROQUIN Active TOPROL XL 100 MG ZC01X-KLX 1 @ HS METOPROLOL SUCCINATE 62166425983 No Longer Active Marvel MARROQUIN Active ALLOPURINOL 300 MG TABS Take one by mouth daily ALLOPURINOL 11320028232 Active Alina Castaneda MD PhD Active ZYPREXA 10 MG TABS Take one by mouth daily OLANZAPINE 10086718006 No Longer Active Alina Castaneda MD PhD Active NOVOLOG 100 UNIT/ML SOLN 40 units with every meal INSULIN ASPART 20772658408 No Longer Active Alina Castaneda MD PhD Active VERAPAMIL HCL CR 120 MG TAB CR 1 qPM VERAPAMIL HCL 21396024112 No Longer Active Salina Han RMA Active ZYPREXA 15 MG TABS Take 1 tablet by mouth daily OLANZAPINE 17418045256 No Longer Active Marvel Mackenzieajayestela [employer] TE[employer] Active LISINOPRIL 20 MG TABS 1 BID LISINOPRIL 39891390205 Active Alina Castaneda MD PhD Active ALBUTEROL SULFATE (2.5 MG/3ML) 0.083% NEBU 1 neb tid and prn cough ALBUTEROL SULFATE 39121401671 No Longer Active Alina Castaneda MD PhD Active FLUVOXAMINE MALEATE 100 MG TABS Take one (1) tablet by mouth am, 1/2 at noon, 1 pm FLUVOXAMINE MALEATE 74639902373 Active Alina Castaneda MD PhD Active TRAVATAN Z 0.004 % SOLN 1 gtt each eye daily TRAVOPROST 72280807769 Active CRYSTAL Suarez Active LANTUS 100 UNIT/ML SOLN 60 units sq q hs INSULIN GLARGINE 21475928807 No Longer Active CRYSTAL Suarez Active ALBUTEROL SULFATE (2.5 MG/3ML) 0.083% NEBU 1 neb tid and prn cough ALBUTEROL SULFATE (2.5 MG/3ML) 0.083% NEBU 974459 ALBUTEROL SULFATE Inactive ZYPREXA 15 MG TABS Take 1 tablet by mouth daily ZYPREXA 15 MG TABS 916817 OLANZAPINE Inactive VERAPAMIL HCL CR 120 MG TAB CR 1 qPM VERAPAMIL HCL CR 120 MG TAB CR VERAPAMIL HCL Inactive ZYPREXA 10 MG TABS Take one by mouth daily ZYPREXA 10 MG TABS 348710 OLANZAPINE Inactive TOPROL XL 100 MG RA72G-BJT 1 @ HS TOPROL XL 100 MG CD77D-TET METOPROLOL SUCCINATE Inactive LEVEMIR 100 UNIT/ML SOLN 90 units SQ qHS LEVEMIR 100 UNIT/ML SOLN INSULIN DETEMIR Inactive PROMETHAZINE-CODEINE 6.25-10 MG/5ML SYRP 1 tsp po q 6 hours prn cough PROMETHAZINE-CODEINE 6.25-10 MG/5ML SYRP 413461 PROMETHAZINE- CODEINE Inactive GUAIFENESIN 600 MG BC45T-NXP 1 tablet by mouth twice daily if needed for cough GUAIFENESIN 600 MG IT52H-SRT GUAIFENESIN Inactive ALBUTEROL SULFATE 0.083 % NEBU SOLN one vial per nebulizer TID and PRN cough/ soa ALBUTEROL SULFATE 0.083 % NEBU SOLN 178486 ALBUTEROL SULFATE Inactive ZYPREXA 5 MG TABS take one tablet by mouth every evening ZYPREXA 5 MG TABS 009581 OLANZAPINE Inactive HYDROCODONE-ACETAMINOPHEN 5-325 MG TABS take one tablet by mouth every four hours as needed for pain HYDROCODONE-ACETAMINOPHEN 5-325 MG TABS 851069 HYDROCODONE-ACETAMINOPHEN Inactive BACTROBAN 2 % CREAM apply to ear and nose twice daily BACTROBAN 2 % CREAM 772439 MUPIROCIN CALCIUM Inactive CYCLOBENZAPRINE HCL 10 MG TABS 1/2 tablet by mouth every 8 hours as needed for muscle spasms CYCLOBENZAPRINE HCL 10 MG TABS 330554 CYCLOBENZAPRINE HCL Inactive NAVANE 10 MG CAPS 1/2 tablet twice a day NAVANE 10 MG CAPS THIOTHIXENE Inactive DOXEPIN HCL 10 MG CAPS Take 1 tablet by mouth daily DOXEPIN HCL 10 MG CAPS 6967707 DOXEPIN HCL Inactive HYDROCODONE-ACETAMINOPHEN 7.5-325 MG TABS 1 four times a day as needed for pain HYDROCODONE-ACETAMINOPHEN 7.5-325 MG TABS 944283 HYDROCODONE-ACETAMINOPHEN Inactive NIACIN CR 500 MG CR-TABS 2 qHS NIACIN CR 500 MG CR- TABS NIACIN Inactive ORPHENADRINE CITRATE ER 100 MG [id number]-HXN 1 every 12 hr. as needed ORPHENADRINE CITRATE ER 100 MG NO66D-BUY ORPHENADRINE CITRATE Inactive ACETAMINOPHEN 500 MG TABS 2 Q 6 hr. PRN ACETAMINOPHEN 500 MG TABS 396285 ACETAMINOPHEN Inactive SAPHRIS 5 MG SUBL by mouth twice a day SAPHRIS 5 MG SUBL ASENAPINE MALEATE Inactive NIACIN ER 500 MG CR-TABS 4 qHS (for triglycerides) NIACIN ER 500 MG CR-TABS NIACIN Inactive IBUPROFEN 200 MG TABS 1 Q 6 hr. PRN IBUPROFEN 200 MG TABS 376695 IBUPROFEN Inactive FLUTICASONE PROPIONATE 50 MCG/ACT SUSP 2 sprays each nostril qDay x 30 days FLUTICASONE PROPIONATE 50 MCG/ACT SUSP 954541 FLUTICASONE PROPIONATE Inactive EQL TRUETEST TEST STRP Test blood sugar TID EQL TRUETEST TEST STRP GLUCOSE BLOOD Inactive TERESE CONTOUR TEST STRP monitor blood sugars 3x/day TERESE CONTOUR TEST STRP GLUCOSE BLOOD Inactive DETROL LA 4 MG MF00P-ABP Take 1 tablet by mouth daily DETROL LA 4 MG LT60Z-EKL TOLTERODINE TARTRATE Inactive ZYPREXA 7.5 MG TABS 1 at HS ZYPREXA 7.5 MG TABS 040498 OLANZAPINE Inactive THIOTHIXENE 5 MG CAPS by mouth twice a day THIOTHIXENE 5 MG CAPS 070324 THIOTHIXENE Inactive UROXATRAL 10 MG WY09N-LAG Take 1 tablet by mouth daily UROXATRAL 10 MG BC51A-UNC ALFUZOSIN HCL Inactive ACYCLOVIR 400 MG ORAL TABS 1 pill three times daily x 5 days, for cold sore outbreak ACYCLOVIR 400 MG ORAL TABS 661137 ACYCLOVIR Inactive TRUETEST TEST STRP check sugars 4x/day TRUETEST TEST STRP GLUCOSE BLOOD Inactive HUMALOG 100 UNIT/ML SOLN Take 20 units with breakfast, 10u with lunch and suppetr. HUMALOG 100 UNIT/ML SOLN INSULIN LISPRO ( HUMAN) Inactive CYCLOBENZAPRINE HCL 10 MG TABS 1 tablet by mouth three times daily, scheduled CYCLOBENZAPRINE HCL 10 MG TABS 437538 CYCLOBENZAPRINE HCL Inactive ACCU-CHEK ROSA INVITR STRP use strips with device to check blood sugars 3 times daily ACCU-CHEK ROSA INVITR STRP GLUCOSE BLOOD Inactive ACCU-CHEK ROSA UZMA Use device to check blood sugars ACCU-CHEK ROSA UZMA BLOOD GLUCOSE MONITORING SUPPL Inactive CEFDINIR 300 MG CAPS by mouth twice a day CEFDINIR 300 MG CAPS 606306 CEFDINIR Inactive AZITHROMYCIN 500 MG SOLR 1 po q day AZITHROMYCIN 500 MG SOLR 016607 AZITHROMYCIN Inactive AMOXICILLIN 500 MG CAPS 2 po BID x 10 days AMOXICILLIN 500 MG CAPS 182787 AMOXICILLIN Inactive PENICILLIN V POTASSIUM 500 MG TABS 1 pill by mouth three times daily PENICILLIN V POTASSIUM 500 MG TABS 744706 PENICILLIN V POTASSIUM Inactive Immunizations Vaccine Administration [...] Fluvirin, Fluarix, Agriflu(>=18 yo)) Fluzone (>3 yrs.) [[id number]] Influenza, seasonal, injectable pneumococcal immunization administered Pneumovax [...] HGBA1C - Chemistry sodium, serum 131 mmol/L 186-971 3873/12/30 potassium, serum 5.0 mmol/L 3.5-5.2 chloride, serum 95 mmol/L 98-107 carbon dioxide, venous blood 26.7 mmol/L 21.0-32.0 blood glucose 112 mg/dL 65-110 calcium, serum 9.2 mg/dL 8.5-10.1 urea nitrogen, blood 12 mg/dL 7-18 creatinine, serum 1.10 mg/dL 0.60-1.30 hemoglobin A1C, blood, as % of total hemoglobin 5.8 % 4.3-6.0 sodium, serum 130 mmol/L 926-578 7752/06/09 potassium, serum 4.0 mmol/L 3.5-5.2 chloride, serum 92 mmol/L 98-107 carbon dioxide, venous blood 22.1 mmol/L 21.0-32.0 blood glucose 60 mg/dL 65-110 calcium, serum 9.5 mg/dL 8.5-10.1 urea nitrogen, blood 14 mg/dL 7-18 creatinine, serum 1.30 mg/dL 0.60-1.30 hemoglobin A1C, blood, as % of total hemoglobin 6.0 % 4.3-6.0 Lab Report: Basic Metabolic Panel, HGBA1C, MICROALBUMIN - Chemistry sodium, serum 137 mmol/L 145-853 7450/05/19 potassium, serum 5.2 mmol/L 3.5-5.2 chloride, serum [...] Panel - Chemistry sodium, serum 127 mmol/L [phone]/10/27 potassium, serum 4.1 mmol/L 3.5-5.2 chloride, serum [...] mg/dL Encounters Code Encounter Date Provider Facility CPT-46931 Level 3 Est. Patient 09:26:40 CDT Marvel Charles [facility]-60087 Level 3 Est. Patient 12:36:43 CDT Vanessa Hickey MD [facility]-69002 Level 3 Est. Patient 12:57:49 CDT Vanessa Hickey MD [facility]-14411 Level 3 Est. Patient 00:28:25 CDT Alina Castaneda MD [facility]-03543 Level 2 Est. Patient 12:52:14 CDT Alina Castaneda MD [facility]83738 Level 3 Est. Patient 11:51:18 CHIEF SCIENTIFIC OFFICER Alina Castaneda MD [facility]-16788 Level 3 Est. Patient 10:09:22 CHIEF SCIENTIFIC OFFICER Alina Castaneda MD [facility]-73420 Level 3 Est. Patient 14:36:26 CHIEF SCIENTIFIC OFFICER Marvel Charles [facility]-45810 Level 3 Est. Patient 13:34:47 CHIEF SCIENTIFIC OFFICER Alina Castaneda MD [facility]-66797 Level 3 Est. Patient 19:52:08 CHIEF SCIENTIFIC OFFICER Alina Castaneda MD [facility]-49467 Level 3 Est. Patient 10:01:51 CHIEF SCIENTIFIC OFFICER Marvel Charles [facility]-95859 Level 3 Est. Patient 21:54:06 CDT Vanessa Hickey MD [facility]-96851 Level 3 Est. Patient 08:54:46 CDT Alina Castaneda MD [facility]20906 Level 3 Est. Patient 09:32:11 CDT [facility] Araceli [facility]-18589 Level 3 Est. Patient 12:02:49 CDT Alina Castaneda MD [facility]-23369 Level 3 Est. Patient 19:17:33 CDT Alina Castaneda MD [facility]-19016 Level 3 Est. Patient 13:19:10 CDT Marvel Thurstonestela [facility]-45512 Level 3 Est. Patient 08:20:05 CDT Alina Castaneda MD [facility]-29580 Level 3 Est. Patient 15:17:18 CDT Alina Castaneda MD [facility]-44266 Level 3 Est. Patient 14:25:36 CHIEF SCIENTIFIC OFFICER [facility] 3 Est[facility] Patient 10:09:15 CHIEF SCIENTIFIC OFFICER [facility] Level 3 Est. Patient 21:28:43 CDT Alina Castaneda MD [facility]-37413 Level 3 Est. Patient 15:20:11 CDT [facility]72731 Level 4 Est. Patient 19:08:12 CDT Alina Castaneda MD [facility]-27655 Level 3 Est. Patient 15:06:39 CDT [facility]59181 Level 4 Est. Patient 17:48:15 CDT Alina Castaneda MD [facility]-02627 Level 3 Est. Patient 14:53:49 CDT Alina Castaneda MD [facility]-50949 Level 3 Est. Patient 09:35:16 CDT Alina Castaneda MD [facility]-57594 Level 3 Est. Patient 12:23:22 CDT Alina Castaneda MD [facility]-34628 Level 3 Est. Patient 16:19:15 CDT Alina Castaneda MD [facility]-01480 Level 3 Est. Patient 21:39:56 CHIEF SCIENTIFIC OFFICER Alina Castaneda MD [facility]-38385 Level 4 Est. Patient 14:12:56 CHIEF SCIENTIFIC OFFICER Alina Castaneda MD [facility]-36158 Level 2 Est. Patient 15:34:57 CHIEF SCIENTIFIC OFFICER Alina Castaneda MD [facility]-50087 Level 3 Est. Patient 12:17:04 CHIEF SCIENTIFIC OFFICER Alina Castaneda MD [facility]-76773 Level 3 Est. Patient 09:18:18 CHIEF SCIENTIFIC OFFICER Marvel Charles [facility]-31970 Level 2 Est. Patient 21:50:24 CDT Alina Castaneda MD [facility]-81197 Level 3 Est. Patient 09:17:28 CDT Marvel Charles [facility]-80919 Level 4 Est. Patient 18:54:02 CDT Alina Castaneda MD [facility]-28833 Level 3 Est. Patient 10:47:10 CDT Alina Castaneda MD [facility]-76095 Level 3 Est. Patient 09:22:20 CDT Marvel Charles [facility]-92364 Level 3 Est. Patient 16:39:43 CDT Marvel Charles [facility]-90149 Level 3 Est. Patient 16:05:16 CDT Alina Castaneda MD [facility]-15572 Level 3 Est. Patient 00:29:15 CDT Alina Castaneda MD [facility] CPT-47537 Level 3 Est. Patient 10:49:22 CHIEF SCIENTIFIC OFFICER [facility] Level 3 Est. Patient 21:30:19 CHIEF SCIENTIFIC OFFICER Alina Castaneda MD [facility] CPT-03618 Level 4 Est. Patient 17:04:11 CHIEF SCIENTIFIC OFFICER [facility] CPT-66000 Level 3 Est. Patient 15:34:11 CHIEF SCIENTIFIC OFFICER [facility] CPT-73355 Level 2 Est. Patient 12:51:58 CHIEF SCIENTIFIC OFFICER Alina Castaneda MD [facility] CPT-36873 Level 3 Est. Patient 13:20:01 CHIEF SCIENTIFIC OFFICER Alina Castaneda MD [facility] CPT-72967 Level 3 Est. Patient 09:23:35 CDT Alina Castaneda MD [facility] Procedures Code Procedure Name Date Entry Date Standard Description CPT-31627 Bladder Scan 12:36:44 CDT CPT-39673 Bladder Scan 21:54:06 CDT CPT-G0008 Administration of Influenza Virus Vaccine 13:05:26 CDT CPT-07858 Fluzone Quadrivalent Intramuscular Suspension 0.5 ML 13: 05:26 CDT CPT-38344 Administration single or combination vaccine inc oral 11 :49:51 CDT CPT-76331 Pneumovax 11:49:51 CDT CPT-85884 Ribs unilateral 2V 12:37:22 CHIEF SCIENTIFIC OFFICER CPT-88637 Chest 2V Frontal and Lat 17:15:26 CDT CPT-29514 Abx/Therapy Injection 18:54:02 CDT CPT-J0696 Rocephin 1000 mg (Ceftriaxone) 16:00:32 CDT CPT-02205 Chest 2V Frontal and Lat 15:26:45 CDT CPT-60563 Chest 2V Frontal and Lat 10:23:27 CDT CPT-97203 Venipuncture Draw Fee 10:11:00 CDT CPT-19555 Administration single or combination vaccine inc oral 11 :56:38 CDT CPT-74951 Influenza split virus > age 3 11:56:38 CDT CPT-35294 Venipuncture Draw Fee 08:49:54 CHIEF SCIENTIFIC OFFICER CPT-45843 EKG Trac and Interp 17:54:19 CHIEF SCIENTIFIC OFFICER
--- OUTSIDE RECORDS SUMMARY | 2018-07-02 14:24 | XMS REPORT | Clinical Summary ---
Author Author Admin, TERELL Organization [facility] Address Unknown Phone Unavailable Allergies, Adverse Reactions, 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 Erazo [employer]ER MACHINE Benign paroxysmal positional vertigo Vertigo, benign paroxysmal position 386.11 Inactive Mima Erazo [employer] MACHINE Benign paroxysmal positional vertigo High-risk sexual behavior V69.2 Active Alina Castaneda MD PhD High-risk sexual behavior Erectile dysfunction 302.72 Active Alina Castaneda MD PhD Psychosexual dysfunction with inhibited sexual excitement Constipation 564.00 Active Alina Castaneda MD PhD Constipation, unspecified Skin lesion 709.9 Active Alina Castaneda MD PhD Unspecified disorder of skin and subcutaneous tissue Malaise and fatigue 780.79 Active Cherelle Speaks [employer] MACHINE Other malaise and fatigue Diarrhea 787.91 Active Cherelle Speaks [employer] MACHINE Diarrhea PHARYNGITIS 462 Active Cherelle Speaks [employer] MACHINE Acute pharyngitis Colitis 558.9 Active Mima Erazo [employer] MACHINE Other and unspecified noninfectious gastroenteritis and [...] Patient Instruction EFFEXOR XR 37.5 MG ORAL [id number] Take one by mouth daily VENLAFAXINE HCL 71422747713 Active Mima Vadimum ALBAN Active TRAVATAN Z 0.004 % OPHTH SOLN 1 drop each eye daily TRAVOPROST 38061941214 Active Mima Yokum [employer] MACHINE Active FLUVOXAMINE MALEATE 50 MG ORAL TABS 1 tab by mouth daily FLUVOXAMINE MALEATE 20798399733 No Longer Active Mima Vadimum ALBAN Active MORPHINE SULFATE ER 30 MG ORAL CR-TABS Take one capsule BID MORPHINE SULFATE 45946051457 Active Mima Yokum [employer] MACHINE Active TRUEPLUS LANCETS 30G MISC 3x a day LANCETS 25845399435 Active Marvel Charles WOVEN LABEL DESIGNER Active TRUE METRIX METER W/DEVICE KIT Check blood sugars 3x/day BLOOD GLUCOSE MONITORING SUPPL 71439206991 Active Marvel Mackenzieglari WOVEN LABEL DESIGNER Active TRUE METRIX BLOOD GLUCOSE TEST INVITR STRP Check blood sugars 3x/day. GLUCOSE BLOOD 97671226868 Active Marvel Mackenzieglari WOVEN LABEL DESIGNER Active VITAMIN D 2000 UNIT ORAL CAPS Take one by mouth daily CHOLECALCIFEROL 21039997805 Active Mima Yokum [employer] MACHINE Active LATUDA 60 MG ORAL TABS Take one by mouth daily LURASIDONE HCL 68899638498 No Longer Active Mima Yokum [employer] MACHINE Active HUMALOG KWIKPEN 100 UNIT/ML SC SOPN sliding scale if needed INSULIN LISPRO (HUMAN) 66981201724 Active Mima Yokum [employer] MACHINE Active TRAZODONE HCL 100 MG TABS 1 every night to prevent headaches TRAZODONE HCL 19323735990 Active Gabrielle Madl POLYSILICON PREPARATION WORKER Active LATUDA 60 MG ORAL TABS 1 tab daily LURASIDONE HCL 15982954401 Active Gabrielle Madl POLYSILICON PREPARATION WORKER Active CLONAZEPAM 1 MG TABS 1 pill by mouth three times daily CLONAZEPAM 16797838226 Active Gabrielle Madl POLYSILICON PREPARATION WORKER Active [facility] MILK OF MAGNESIA 400 MG/5ML ORAL SUSP 30ml by mouth bid prn MAGNESIUM HYDROXIDE 06858161850 Active Mason Loredo MD Active TYLENOL 8 HOUR 650 MG ORAL CR-TABS 1 tab QID prn ACETAMINOPHEN 94446002215 Active Mason Loredo MD Active MYLANTA GAS RELIEF MAXIMUM STR 125 MG ORAL CAPS 30cc every 4 hours prn 12/01 SIMETHICONE 66039141299 Active Mason Loredo MD Active IMODIUM A-D 2 MG ORAL TABS 1 tab QID as needed LOPERAMIDE HCL 33084354001 Active Mason Loredo MD Active TRAVATAN Z 0.004 % SOLN 1 gtt each eye daily TRAVOPROST 45122879349 No Longer Active Mason Loredo MD Active LISINOPRIL 20 MG TABS 1 BID LISINOPRIL 62124263267 No Longer Active Mason Loredo MD Active LEVEMIR FLEXTOUCH 100 UNIT/ML SC SOPN 60 units SQ each evening, for diabetes INSULIN DETEMIR 75385532366 Active Mima Erazo APRN Active ZOLPIDEM TARTRATE 10 MG TABS take at bedtime ZOLPIDEM TARTRATE 24284181268 No Longer Active Mason Loredo MD Active HYDROCODONE-ACETAMINOPHEN 5-325 MG TABS 2 tabs by mouth three times daily for pain HYDROCODONE-ACETAMINOPHEN 69221239692 No Longer Active Mason Loredo MD Active ZOFRAN 4 MG TABS 1 po q4hr PRN Nausea ONDANSETRON HCL 39923684602 No Longer Active Mason Loredo MD Active LOMOTIL 2.5-0.025 MG ORAL TABS take 1-2 tabs PO after each stool, no more than 8 in 24 hours DIPHENOXYLATE-ATROPINE 61445612188 No Longer Active Mason Loredo MD Active COLACE 100 MG CAPS 1 pill by mouth twice daily, for constipation DOCUSATE SODIUM 19799736232 No Longer Active Mima Erazo APRN Active FLONASE ALLERGY RELIEF 50 MCG/ACT NASAL SUSP One spray each nostril BID x 1 week then daily FLUTICASONE PROPIONATE 46411352208 Active Mima Erazo APRN Active BD PEN NEEDLE MINI U/F 31G X 5 MM MISC 4 a day INSULIN PEN NEEDLE 41823262463 Active Marvel MARROQUIN Active AMITIZA 24 MCG ORAL CAPS Take one capsule BID for constipation LUBIPROSTONE 29999807635 Active Mima Erazo APRN Active TRUEPLUS LANCETS 30G MISC 3 a day LANCETS 10882468421 Active Marvel MARROQUIN Active TOLTERODINE TARTRATE 2 MG TABS 1 pill twice daily, for bladder TOLTERODINE TARTRATE 36782194947 No Longer Active Vanessa Hickey MD Active AMITIZA 24 MCG ORAL CAPS Take one capsule BID for constipation. LUBIPROSTONE 17067945562 No Longer Active Vanessa Hickey MD Active FLUVOXAMINE MALEATE 100 MG ORAL TABS take one tab every AM et HS, and take 1/ 2 tab at noon FLUVOXAMINE MALEATE 71639841904 Active Grace Azam RMA Active METOPROLOL SUCCINATE 100 MG [id number] 1 by mouth daily for blood pressure METOPROLOL SUCCINATE 18391466371 No Longer Active Grace Azam RMA Active METFORMIN HCL ER 500 MG [id number]-IJO Take three tablets by mouth everyday METFORMIN HCL 35478945924 No Longer Active Grace Azam RMA Active LOVAZA 1 GM CAPS 4 daily (for triglycerides) OMEGA-3- ACID ETHYL ESTERS 46703758426 No Longer Active Grace Azam RMA Active TRAZODONE HCL 100 MG ORAL TABS 1 tab by mouth for sleep TRAZODONE HCL 81059895353 No Longer Active Grace Azam RMA Active NOVOFINE 32G X 6 MM MISC use one four times per day INSULIN PEN NEEDLE 60158438102 No Longer Active Grace Azam RMA Active BACTROBAN 2 % CREAM Apply to affected area BID for up to 10 days MUPIROCIN CALCIUM 18442084733 No Longer Active Grace Azam RMA Active KEFLEX 500 MG CAP 1 po BID x 7 days CEPHALEXIN 73205729395 No Longer Active Cherelle Avila APRN Active FLUVOXAMINE MALEATE 100 MG TABS Take one (1) tablet by mouth am, 1/2 at noon FLUVOXAMINE MALEATE 35292823803 No Longer Active Mimacecily Erazo [employer] MACHINE Active CORICIDIN HBP CONGESTION/COUGH 10-200 MG ORAL CAPS Take as directed on box as needed for cold/flu symptoms DEXTROMETHORPHAN-GUAIFENESIN 86060608146 Active Cherelle Speaks [employer] MACHINE Active OMEGA-3 300 MG ORAL CAPS 4 caps by mouth daily OMEGA-3 FATTY ACIDS 99403514460 Active Mima Yokum [employer] MACHINE Active FLUVOXAMINE MALEATE 100 MG ORAL TABS Take 1/2 tab at noon FLUVOXAMINE MALEATE 77235510630 No Longer Active Cherelle Avila ALBAN Active [facility] LUBRICANT EYE DROPS 0.4-0.3 % OPHTH SOLN POLYETHYL GLYCOL-PROPYL GLYCOL 53625231291 Active Mima Erazo [employer] MACHINE Active MIRALAX POWD 17g by mouth daily, for constipation POLYETHYLENE GLYCOL 3350 93152786461 Active Alina Castaneda MD PhD Active TRUETEST TEST STRP check blood sugars 3x/day GLUCOSE BLOOD 29000560623 Active Maliheh Ziglari WOVEN LABEL DESIGNER Active ACCU-CHEK ROSA UZMA Use device to check blood sugars BLOOD GLUCOSE MONITORING SUPPL 11770494117 No Longer Active Maliheh Ziglari WOVEN LABEL DESIGNER Active ACCU-CHEK ROSA INVITR STRP use strips with device to check blood sugars 3 times daily GLUCOSE BLOOD 39147177708 No Longer Active [employer] Ziglari WOVEN LABEL DESIGNER Active VERAPAMIL HCL ER 180 MG ORAL CR-TABS 1 pill by mouth twice daily, for migraine prevention VERAPAMIL HCL 89400600198 Active Mima Erazo APRN Active CYCLOBENZAPRINE HCL 10 MG TABS 1 tablet by mouth three times daily, scheduled CYCLOBENZAPRINE HCL 31132607853 No Longer Active Alina Castaneda MD PhD Active HUMALOG 100 UNIT/ML SOLN Take 20 units with breakfast, 10u with lunch and suppetr. INSULIN LISPRO (HUMAN) 61254300195 No Longer Active Alina Castaneda MD PhD Active TRUETEST TEST STRP check sugars 4x/day GLUCOSE BLOOD 50787655766 No Longer Active Alina Castaneda MD PhD Active MORPHINE SULFATE 30 MG TABS 1 pill by mouth twice daily, for pain MORPHINE SULFATE 80312770720 No Longer Active Mason Loredo MD Active ACYCLOVIR 400 MG ORAL TABS 1 pill three times daily x 5 days, for cold sore outbreak ACYCLOVIR 63852526324 No Longer Active Alina Castaneda MD PhD Active PENICILLIN V POTASSIUM 500 MG TABS 1 pill by mouth three times daily PENICILLIN V POTASSIUM 44916270967 No Longer Active Alina Castaneda MD PhD Active UROXATRAL 10 MG [id number]-[id number] Take 1 tablet by mouth daily ALFUZOSIN HCL 55742084332 No Longer Active Alina Castaneda MD PhD Active THIOTHIXENE 5 MG CAPS by mouth twice a day THIOTHIXENE 34110882118 No Longer Active Alina Castaneda MD PhD Active ZYPREXA 7.5 MG TABS 1 at HS OLANZAPINE 65258616497 No Longer Active Alina Castaneda MD PhD Active BD INSULIN SYRINGE 28G X 1/2" 1 ML MISC 1 four times per day INSULIN SYRINGE-NEEDLE U-100 09516864940 Active Marvel Charles WOVEN LABEL DESIGNER Active DETROL LA 4 MG [id number] Take 1 tablet by mouth daily TOLTERODINE TARTRATE 53384641457 No Longer Active Alina Castaneda MD PhD Active TERESE CONTOUR TEST STRP monitor blood sugars 3x/day GLUCOSE BLOOD 24129989509 No Longer Active Alina Castaneda MD PhD Active EQL TRUETEST TEST STRP Test blood sugar TID GLUCOSE BLOOD 51310771409 No Longer Active Alina Castaneda MD PhD Active FLUTICASONE PROPIONATE 50 MCG/ACT SUSP 2 sprays each nostril qDay x 30 days FLUTICASONE PROPIONATE 81145218629 No Longer Active Alina Castaneda MD PhD Active IBUPROFEN 200 MG TABS 1 Q 6 hr. PRN IBUPROFEN 63520218479 No Longer Active Alina Castaneda MD PhD Active NIACIN ER 500 MG CR-TABS 4 qHS (for triglycerides) NIACIN 32469603374 No Longer Active Alina Castaneda MD PhD Active ALFUZOSIN HCL ER 10 MG [id number] 1 tablet daily ALFUZOSIN HCL 34999927011 Active Mima Erazo [employer] RO[employer]ER MACHINE Active SAPHRIS 5 MG SUBL by mouth twice a day ASENAPINE MALEATE 40009087337 No Longer Active Marvel Mackenzieglari WOVEN LABEL DESIGNER Active ACETAMINOPHEN 500 MG TABS 2 Q 6 hr. PRN ACETAMINOPHEN 61801663908 No Longer Active Maliheh Ziglari WOVEN LABEL DESIGNER Active ORPHENADRINE CITRATE ER 100 MG SR64R-ZEK 1 every 12 hr. as needed ORPHENADRINE CITRATE 71986037282 No Longer Active Alina Castaneda MD PhD Active NIACIN CR 500 MG CR-TABS 2 qHS NIACIN 09993020420 No Longer Active Alina Castaneda MD PhD Active AMOXICILLIN 500 MG CAPS 2 po BID x 10 days AMOXICILLIN 90079813120 No Longer Active Alina Castaneda MD PhD Active HYDROCODONE-ACETAMINOPHEN 7.5-325 MG TABS 1 four times a day as needed for pain HYDROCODONE-ACETAMINOPHEN 95666340374 No Longer Active Alina Castaneda MD PhD Active DOXEPIN HCL 10 MG CAPS Take 1 tablet by mouth daily DOXEPIN HCL 20269471429 No Longer Active Salina Han [facility] Active NAVANE 10 MG CAPS 1/2 tablet twice a day THIOTHIXENE No Longer Active Salina Han [facility] Active CYCLOBENZAPRINE HCL 10 MG TABS 1/2 tablet by mouth every 8 hours as needed for muscle spasms CYCLOBENZAPRINE HCL 03468798446 No Longer Active Alina Castaneda MD PhD Active BACTROBAN 2 % CREAM apply to ear and nose twice daily MUPIROCIN CALCIUM 57385084237 No Longer Active Alina Castaneda MD PhD Active HYDROCODONE-ACETAMINOPHEN 5-325 MG TABS take one tablet by mouth every four hours as needed for pain HYDROCODONE-ACETAMINOPHEN 66762410080 No Longer Active Alina Castaneda MD PhD Active ZYPREXA 5 MG TABS take one tablet by mouth every evening OLANZAPINE 60906815867 No Longer Active Alina Castaneda MD PhD Active ALBUTEROL SULFATE 0.083 % NEBU SOLN one vial per nebulizer TID and PRN cough/ soa ALBUTEROL SULFATE 07850075436 No Longer Active Alina Castaneda MD PhD Active GUAIFENESIN 600 MG [id number] 1 tablet by mouth twice daily if needed for cough GUAIFENESIN 02089902911 No Longer Active Marvel MARROQUIN Active AZITHROMYCIN 500 MG SOLR 1 po q day AZITHROMYCIN 12932649500 No Longer Active Alina Castaneda MD PhD Active PROMETHAZINE-CODEINE 6.25-10 MG/5ML SYRP 1 tsp po q 6 hours prn cough PROMETHAZINE-CODEINE 60353433654 No Longer Active Alina Castaneda MD PhD Active CEFDINIR 300 MG CAPS by mouth twice a day CEFDINIR 86353256473 No Longer Active Alina Castaneda MD PhD Active METFORMIN HCL 500 MG [id number] Take 3 tablets by mouth everyday METFORMIN HCL 54191023273 No Longer Active Alina Castaneda MD PhD Active LEVEMIR 100 UNIT/ML SOLN 90 units SQ qHS INSULIN DETEMIR 03902809422 No Longer Active Marvel MARROQUIN Active TOPROL XL 100 MG FR29R-VEY 1 @ HS METOPROLOL SUCCINATE 27174496010 No Longer Active Marvel MARROQUIN Active ALLOPURINOL 300 MG TABS Take one by mouth daily ALLOPURINOL 82476857041 Active Mima Yoeloinaum [employer] RO[employer]ER MACHINE Active ZYPREXA 10 MG TABS Take one by mouth daily OLANZAPINE 55616108592 No Longer Active Alina Castaneda MD PhD Active NOVOLOG 100 UNIT/ML SOLN 40 units with every meal INSULIN ASPART 77107073504 No Longer Active Alina Castaneda MD PhD Active VERAPAMIL HCL CR 120 MG TAB CR 1 qPM VERAPAMIL HCL 81036823704 No Longer Active Salina Han RMA Active ZYPREXA 15 MG TABS Take 1 tablet by mouth daily OLANZAPINE 82562890770 No Longer Active Marvel MENDOZAP Active ALBUTEROL SULFATE (2.5 MG/3ML) 0.083% NEBU 1 neb tid and prn cough ALBUTEROL SULFATE 24600999831 No Longer Active Alina Castaneda MD PhD Active LANTUS 100 UNIT/ML SOLN 60 units sq q hs INSULIN GLARGINE 38957698305 No Longer Active CRYSTAL Suarez Active ALBUTEROL SULFATE (2.5 MG/3ML) 0.083% NEBU 1 neb tid and prn cough ALBUTEROL SULFATE (2.5 MG/3ML) 0.083% NEBU 064444 ALBUTEROL SULFATE Inactive ZYPREXA 15 MG TABS Take 1 tablet by mouth daily ZYPREXA 15 MG TABS 274913 OLANZAPINE Inactive VERAPAMIL HCL CR 120 MG TAB CR 1 qPM VERAPAMIL HCL CR 120 MG TAB CR VERAPAMIL HCL Inactive ZYPREXA 10 MG TABS Take one by mouth daily ZYPREXA 10 MG TABS 149177 OLANZAPINE Inactive TOPROL XL 100 MG [id number] 1 @ HS TOPROL XL 100 MG [id number]-ELF METOPROLOL SUCCINATE Inactive LEVEMIR 100 UNIT/ML SOLN 90 units SQ qHS LEVEMIR 100 UNIT/ML SOLN INSULIN DETEMIR Inactive PROMETHAZINE-CODEINE 6.25-10 MG/5ML SYRP 1 tsp po q 6 hours prn cough PROMETHAZINE-CODEINE 6.25-10 MG/5ML SYRP 574581 PROMETHAZINE- CODEINE Inactive GUAIFENESIN 600 MG [id number] 1 tablet by mouth twice daily if needed for cough GUAIFENESIN 600 MG [id number]-XFA GUAIFENESIN Inactive ALBUTEROL SULFATE 0.083 % NEBU SOLN one vial per nebulizer TID and PRN cough/ soa ALBUTEROL SULFATE 0.083 % NEBU SOLN 056543 ALBUTEROL SULFATE Inactive ZYPREXA 5 MG TABS take one tablet by mouth every evening ZYPREXA 5 MG TABS 918477 OLANZAPINE Inactive HYDROCODONE-ACETAMINOPHEN 5-325 MG TABS take one tablet by mouth every four hours as needed for pain HYDROCODONE-ACETAMINOPHEN 5-325 MG TABS 319715 HYDROCODONE-ACETAMINOPHEN Inactive BACTROBAN 2 % CREAM apply to ear and nose twice daily BACTROBAN 2 % CREAM 596782 MUPIROCIN CALCIUM Inactive CYCLOBENZAPRINE HCL 10 MG TABS 1/2 tablet by mouth every 8 hours as needed for muscle spasms CYCLOBENZAPRINE HCL 10 MG TABS 932091 CYCLOBENZAPRINE HCL Inactive NAVANE 10 MG CAPS 1/2 tablet twice a day NAVANE 10 MG CAPS THIOTHIXENE Inactive DOXEPIN HCL 10 MG CAPS Take 1 tablet by mouth daily DOXEPIN HCL 10 MG CAPS 1507420 DOXEPIN HCL Inactive HYDROCODONE-ACETAMINOPHEN 7.5-325 MG TABS 1 four times a day as needed for pain HYDROCODONE-ACETAMINOPHEN 7.5-325 MG TABS 631634 HYDROCODONE-ACETAMINOPHEN Inactive NIACIN CR 500 MG CR-TABS 2 qHS NIACIN CR 500 MG CR- TABS NIACIN Inactive ORPHENADRINE CITRATE ER 100 MG [id number] 1 every 12 hr. as needed ORPHENADRINE CITRATE ER 100 MG [id number]-GNC ORPHENADRINE CITRATE Inactive ACETAMINOPHEN 500 MG TABS 2 Q 6 hr. PRN ACETAMINOPHEN 500 MG TABS 040620 ACETAMINOPHEN Inactive SAPHRIS 5 MG SUBL by mouth twice a day SAPHRIS 5 MG SUBL ASENAPINE MALEATE Inactive NIACIN ER 500 MG CR-TABS 4 qHS (for triglycerides) NIACIN ER 500 MG CR-TABS NIACIN Inactive IBUPROFEN 200 MG TABS 1 Q 6 hr. PRN IBUPROFEN 200 MG TABS 269911 IBUPROFEN Inactive FLUTICASONE PROPIONATE 50 MCG/ACT SUSP 2 sprays each nostril qDay x 30 days FLUTICASONE PROPIONATE 50 MCG/ACT SUSP 1014343 FLUTICASONE PROPIONATE Inactive EQL TRUETEST TEST STRP Test blood sugar TID EQL TRUETEST TEST STRP GLUCOSE BLOOD Inactive TERESE CONTOUR TEST STRP monitor blood sugars 3x/day TERESE CONTOUR TEST STRP GLUCOSE BLOOD Inactive DETROL LA 4 MG [id number] Take 1 tablet by mouth daily DETROL LA 4 MG [id number]-OJS TOLTERODINE TARTRATE Inactive ZYPREXA 7.5 MG TABS 1 at HS ZYPREXA 7.5 MG TABS 848795 OLANZAPINE Inactive THIOTHIXENE 5 MG CAPS by mouth twice a day THIOTHIXENE 5 MG CAPS 233230 THIOTHIXENE Inactive UROXATRAL 10 MG [id number]-UMS Take 1 tablet by mouth daily UROXATRAL 10 MG [id number] ALFUZOSIN HCL Inactive ACYCLOVIR 400 MG ORAL TABS 1 pill three times daily x 5 days, for cold sore outbreak ACYCLOVIR 400 MG ORAL TABS 301212 ACYCLOVIR Inactive TRUETEST TEST STRP check sugars 4x/day TRUETEST TEST STRP GLUCOSE BLOOD Inactive HUMALOG 100 UNIT/ML SOLN Take 20 units with breakfast, 10u with lunch and suppetr. HUMALOG 100 UNIT/ML SOLN INSULIN LISPRO ( HUMAN) Inactive CYCLOBENZAPRINE HCL 10 MG TABS 1 tablet by mouth three times daily, scheduled CYCLOBENZAPRINE HCL 10 MG TABS 314231 CYCLOBENZAPRINE HCL Inactive ACCU-CHEK ROSA INVITR STRP use strips with device to check blood sugars 3 times daily ACCU-CHEK ROSA INVITR STRP GLUCOSE BLOOD Inactive ACCU-CHEK ROSA UZMA Use device to check blood sugars ACCU-CHEK ROSA UZMA BLOOD GLUCOSE MONITORING SUPPL Inactive FLUVOXAMINE MALEATE 100 MG ORAL TABS Take 1/2 tab at noon FLUVOXAMINE MALEATE 100 MG ORAL TABS 470711 FLUVOXAMINE MALEATE Inactive FLUVOXAMINE MALEATE 100 MG TABS Take one (1) tablet by mouth am, 1/2 at noon FLUVOXAMINE MALEATE 100 MG TABS 772036 FLUVOXAMINE MALEATE Inactive BACTROBAN 2 % CREAM Apply to affected area BID for up to 10 days BACTROBAN 2 % CREAM 664504 MUPIROCIN CALCIUM Inactive NOVOFINE 32G X 6 MM MISC use one four times per day NOVOFINE 32G X 6 MM MISC INSULIN PEN NEEDLE Inactive TRAZODONE HCL 100 MG ORAL TABS 1 tab by mouth for sleep TRAZODONE HCL 100 MG ORAL TABS 530441 TRAZODONE HCL Inactive LOVAZA 1 GM CAPS 4 daily (for triglycerides) LOVAZA 1 GM CAPS 247534 LDAAN-5-FUSX ETHYL ESTERS Inactive METFORMIN HCL ER 500 MG [id number] Take three tablets by mouth everyday METFORMIN HCL ER 500 MG [id number]-TAC METFORMIN HCL Inactive METOPROLOL SUCCINATE 100 MG QN37J-CLV 1 by mouth daily for blood pressure METOPROLOL SUCCINATE 100 MG XH74M-ILO METOPROLOL SUCCINATE Inactive AMITIZA 24 MCG ORAL CAPS Take one capsule BID for constipation. AMITIZA 24 MCG ORAL CAPS LUBIPROSTONE Inactive TOLTERODINE TARTRATE 2 MG TABS 1 pill twice daily, for bladder TOLTERODINE TARTRATE 2 MG TABS 422297 TOLTERODINE TARTRATE Inactive COLACE 100 MG CAPS 1 pill by mouth twice daily, for constipation COLACE 100 MG CAPS 9246937 DOCUSATE SODIUM Inactive LOMOTIL 2.5-0.025 MG ORAL TABS take 1-2 tabs PO after each stool, no more than 8 in 24 hours LOMOTIL 2.5-0.025 MG ORAL TABS 8771202 DIPHENOXYLATE-ATROPINE Inactive ZOFRAN 4 MG TABS 1 po q4hr PRN Nausea ZOFRAN 4 MG TABS 834416 ONDANSETRON HCL Inactive HYDROCODONE-ACETAMINOPHEN 5-325 MG TABS 2 tabs by mouth three times daily for pain HYDROCODONE-ACETAMINOPHEN 5-325 MG TABS 747073 HYDROCODONE-ACETAMINOPHEN Inactive ZOLPIDEM TARTRATE 10 MG TABS take at bedtime ZOLPIDEM TARTRATE 10 MG TABS 191036 ZOLPIDEM TARTRATE Inactive LISINOPRIL 20 MG TABS 1 BID LISINOPRIL 20 MG TABS 445910 LISINOPRIL Inactive TRAVATAN Z 0.004 % SOLN 1 gtt each eye daily TRAVATAN Z 0.004 % SOLN TRAVOPROST Inactive LATUDA 60 MG ORAL TABS Take one by mouth daily LATUDA 60 MG ORAL TABS LURASIDONE HCL Inactive FLUVOXAMINE MALEATE 50 MG ORAL TABS 1 tab by mouth daily FLUVOXAMINE MALEATE 50 MG ORAL TABS 157964 FLUVOXAMINE MALEATE Inactive CEFDINIR 300 MG CAPS by mouth twice a day CEFDINIR 300 MG CAPS 749151 CEFDINIR Inactive AZITHROMYCIN 500 MG SOLR 1 po q day AZITHROMYCIN 500 MG SOLR 70944816505 AZITHROMYCIN Inactive AMOXICILLIN 500 MG CAPS 2 po BID x 10 days AMOXICILLIN 500 MG CAPS 434115 AMOXICILLIN Inactive PENICILLIN V POTASSIUM 500 MG TABS 1 pill by mouth three times daily PENICILLIN V POTASSIUM 500 MG TABS 034330 PENICILLIN V POTASSIUM Inactive KEFLEX 500 MG CAP 1 po BID x 7 days KEFLEX 500 MG CAP 660040 CEPHALEXIN Inactive Immunizations Vaccine Administration Date Value [...] Fluvirin, Fluarix, Agriflu(>=18 yo)) Fluzone (>3 yrs.) [[id number]] Influenza, seasonal, injectable pneumococcal immunization administered Pneumovax [...] HGBA1C - Chemistry sodium, serum 140 mmol/L 945-041 5903/11/09 potassium, serum 4.0 mmol/L 3.5-5.2 chloride, serum 102 mmol/L 98-107 carbon dioxide, venous blood 33.0 mmol/L 21.0-32.0 blood glucose 120 mg/dL 65-110 calcium, serum 9.0 mg/dL 8.5-10.1 urea nitrogen, blood 8 mg/dL 7-18 creatinine, serum 0.86 mg/dL 0.55-1.30 hemoglobin A1C, blood, as % of total hemoglobin 6.4 % 4.3-6.0 Lab Report: CBC W/DIFF, Basic Metabolic Panel - Chemistry sodium, serum 138 mmol/L 214-099 2048/11/11 potassium, serum 4.7 mmol/L 3.5-5.2 chloride, serum [...] Acid - Chemistry cholesterol, serum 187 mg/dL 408-520 8991/06/14 triglyceride, serum, fasting 246 mg/dL 30-200 HDL [...] No Encounters Code Encounter Date Provider Facility CPT-57695 Level 3 Est. Patient 09:12:14 HOSPICE BEREAVEMENT COORDINATOR Mima Erazo [facility] CPT-28003 Level 3 Est. Patient 16:52:51 CDT Vanessa Hickey MD [facility]-12333 Level 3 Est. Patient 17:40:16 CDT Mima Erazo [facility]-73100 Level 3 Est. Patient 14:34:52 CDT Vanessa Hickey MD [facility]-19930 Level 3 Est. Patient 16:27:51 CDT Mima Erazo [facility] CPT-32961 Level 3 Est. Patient 14:39:00 HOSPICE BEREAVEMENT COORDINATOR Vanessa Hickey MD [facility] CPT-74754 Level 2 Est. Patient 18:43:34 CDT Mima Erazo [facility] CPT-83051 Level 3 Est. Patient 16:22:09 CDT Cherelle Avila [facility] CPT-71861 Level 4 Est. Patient 17:55:14 CDT Mima Erazo [facility] CPT-23167 Level 2 Est. Patient 17:13:21 CDT Alina Castaneda MD [facility]-52325 Level 3 Est. Patient 14:46:15 CDT Vanessa Hickey MD [facility]-73558 Level 3 Est. Patient 09:34:56 CDT Alina Castaneda MD [facility]79784 Level 3 Est. Patient 21:40:19 CDT Mima Erazo [facility]-82139 Level 3 Est. Patient 09:26:40 CDT Marvel Charles [facility]-04269 Level 3 Est. Patient 12:36:43 CDT Vanessa Hickey MD [facility]-43948 Level 3 Est. Patient 12:57:49 CDT Vanessa Hickey MD [facility]-23746 Level 3 Est. Patient 00:28:25 CDT Alina Castaneda MD [facility]29350 Level 2 Est. Patient 12:52:14 CDT Alina Castaneda MD [facility]60590 Level 3 Est. Patient 11:51:18 HOSPICE BEREAVEMENT COORDINATOR Alina Castaneda MD [facility]-76702 Level 3 Est. Patient 10:09:22 HOSPICE BEREAVEMENT COORDINATOR Alina Castaneda MD [facility]16963 Level 3 Est. Patient 14:36:26 HOSPICE BEREAVEMENT COORDINATOR Marvel [facility]-90583 Level 3 Est. Patient 13:34:47 HOSPICE BEREAVEMENT COORDINATOR Alina Castaneda MD [facility]-83334 Level 3 Est. Patient 19:52:08 HOSPICE BEREAVEMENT COORDINATOR Alina Castaneda MD [facility]96758 Level 3 Est. Patient 10:01:51 HOSPICE BEREAVEMENT COORDINATOR Marvel [facility]-63248 Level 3 Est. Patient 21:54:06 CDT Vanessa Hickey MD [facility]-80831 Level 3 Est. Patient 08:54:46 CDT Alina Castaneda MD [facility]-32440 Level 3 Est. [facility] 09:32:[facility]-40902 Level 3 Est. Patient 12:02:49 CDT Alina Castaneda MD [facility]94862 Level 3 Est. Patient 19:17:33 CDT Alina Castaneda MD [facility]21750 Level 3 Est. Patient 13:19:10 CDT [facility]-69271 Level 3 Est. Patient 08:20:05 CDT Alina Castaneda MD [facility]13043 Level 3 Est. Patient 15:17:18 CDT Alina Castaneda MD [facility]25094 Level 3 Est. 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 Patient 21:28:43 CDT Alina Castaneda MD [facility]98654 Level 3 Est. Patient 15:20:11 CDT [facility]-32148 Level 4 Est. Patient 19:08:12 CDT Alina Castaneda MD [facility]11291 Level 3 Est. Patient 15:06:39 CDT [facility]-04700 Level 4 Est. Patient 17:48:15 CDT Alina Castaneda MD [facility]-30857 Level 3 Est. Patient 14:53:49 CDT Alina Castaneda MD [facility]-08005 Level 3 Est. Patient 09:35:16 CDT Alina Castaneda MD [facility]-26645 Level 3 Est. Patient 12:23:22 CDT Alina Castaneda MD [facility]-43428 Level 3 Est. Patient 16:19:15 CDT Alina Castaneda MD [facility]-70223 Level 3 Est. Patient 21:39:56 HOSPICE BEREAVEMENT COORDINATOR Alina Castaneda MD [facility]-30880 Level 4 Est. Patient 14:12:56 HOSPICE BEREAVEMENT COORDINATOR Alina Castaneda MD [facility]-57503 Level 2 Est. Patient 15:34:57 HOSPICE BEREAVEMENT COORDINATOR Alina Castaneda MD [facility]-81610 Level 3 Est. Patient 12:17:04 HOSPICE BEREAVEMENT COORDINATOR Alina Castaneda MD [facility]-94764 Level 3 Est. Patient 09:18:18 HOSPICE BEREAVEMENT COORDINATOR [facility] CPT-76278 Level 2 Est. Patient 21:50:24 CDT Alina Castaneda MD [facility] CPT-61831 Level 3 Est. Patient 09:17:28 CDT [facility]-07362 Level 4 Est. Patient 18:54:02 CDT Alina Castaneda MD [facility]-83391 Level 3 Est. Patient 10:47:10 CDT Alina Castaneda MD [facility]-60330 Level 3 Est. Patient 09:22:20 CDT [facility]58377 Level 3 Est. Patient 16:39:43 CDT [facility] CPT-78168 Level 3 Est. Patient 16:05:16 CDT Alina Castaneda MD [facility] CPT-36997 Level 3 Est. Patient 00:29:15 CDT Alina Castaneda MD PhD [facility] CPT-67635 Level 3 Est. Patient 10:49:22 HOSPICE BEREAVEMENT COORDINATOR [facility] CPT-91654 Level 3 Est. Patient 21:30:19 HOSPICE BEREAVEMENT COORDINATOR Alina Castaneda MD [facility] CPT-37641 Level 4 Est. Patient 17:04:11 HOSPICE BEREAVEMENT COORDINATOR [facility] CPT-03046 Level 3 Est. Patient 15:34:11 HOSPICE BEREAVEMENT COORDINATOR [facility] CPT-91531 Level 2 Est. Patient 12:51:58 HOSPICE BEREAVEMENT COORDINATOR Alina Castaneda MD PhD [facility] CPT-61547 Level 3 Est. Patient 13:20:01 HOSPICE BEREAVEMENT COORDINATOR Alina Castaneda MD [facility] CPT-76451 Level 3 Est. Patient 09:23:35 CDT Alina Castaneda MD PhD [facility] Procedures Code Procedure Name Date Entry Date Standard Description CPT-52193 HGBA1C - LAB USE ONLY 09:30:27 HOSPICE BEREAVEMENT COORDINATOR CPT-96889 BMP - LAB USE ONLY 09:30:27 HOSPICE BEREAVEMENT COORDINATOR CPT-46809 Venipuncture Draw Fee 09:30:26 HOSPICE BEREAVEMENT COORDINATOR CPT-TCMM Transitional Care Mgmt-Moderate 10:25:31 CDT CPT-80787 Bladder Scan 14:34:53 CDT CPT-33485 Bladder Scan 14:39:01 HOSPICE BEREAVEMENT COORDINATOR CPT-TCMM Transitional Care Mgmt-Moderate 10:30:19 HOSPICE BEREAVEMENT COORDINATOR CPT-74568 Bladder Scan 12:36:44 CDT CPT-02465 Bladder Scan 21:54:06 CDT CPT-G0008 Administration of Influenza Virus Vaccine 13:05:26 CDT CPT-94244 Fluzone Quadrivalent Intramuscular Suspension 0.5 ML 13: 05:26 CDT CPT-32607 Administration single or combination vaccine inc oral 11 :49:51 CDT CPT-36009 Pneumovax 11:49:51 CDT CPT-31040 Ribs unilateral 2V 12:37:22 HOSPICE BEREAVEMENT COORDINATOR CPT-15227 Chest 2V Frontal and Lat 17:15:26 CDT CPT-32797 Abx/Therapy Injection 18:54:02 CDT CPT-J0696 Rocephin 1000 mg (Ceftriaxone) 16:00:32 CDT CPT-57375 Chest 2V Frontal and Lat 15:26:45 CDT CPT-28010 Chest 2V Frontal and Lat 10:23:27 CDT CPT-37191 Venipuncture Draw Fee 10:11:00 CDT CPT-38822 Administration single or combination vaccine inc oral 11 :56:38 CDT CPT-99028 Influenza split virus > age 3 11:56:38 CDT CPT-54753 Venipuncture Draw Fee 08:49:54 HOSPICE BEREAVEMENT COORDINATOR CPT-88442 EKG Trac and Interp 17:54:19 HOSPICE BEREAVEMENT COORDINATOR
--- OUTSIDE RECORDS SUMMARY | 2018-07-02 14:25 | XMS REPORT | Clinical Summary ---
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 Alina Castaneda MD PhD Recurrent isolated sleep paralysis SPECIAL SCREENING FOR MALIGNANT NEOPLASM OF PROSTATE V76.44 Resolved Alina Castaneda MD PhD Screening for malignant neoplasms of prostate Hypoglycemia 251.2 Resolved Alina Castaneda MD PhD Hypoglycemia, unspecified Diabetes mellitus, type II 250.00 Active Mallashondaeh Bertrandari NEGATIVE CUTTER Diabetes mellitus without mention of complication, type [...] TO HIGH-RISK SEXUAL BEHAVIOR ICD-V69.2 Inactive Alina Castnaeda MD PhD CHEST COUGH ICD-786.2 Inactive Alina [...] STRP check blood sugars 3x/day GLUCOSE BLOOD 26088367834 Active Malihnivia Ziglari NEGATIVE CUTTER Active ACCU-CHEK ROSA UZMA Use device to check blood sugars BLOOD GLUCOSE MONITORING SUPPL 69964413398 No Longer Active Mallashondaeh Ziglari NEGATIVE CUTTER Active ACCU-CHEK ROSA INVITR STRP use strips with device to check blood sugars 3 times daily GLUCOSE BLOOD 45671864459 No Longer Active Mallashondaeh 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 NEGATIVE CUTTER Active VERAPAMIL HCL ER 180 MG ORAL CR-TABS 1 pill by mouth twice daily, for migraine prevention VERAPAMIL HCL 74981974572 Active Alina Castaneda MD PhD Active CYCLOBENZAPRINE HCL 10 MG TABS 1 tablet by mouth three times daily, scheduled CYCLOBENZAPRINE HCL 05118351377 No Longer Active Alina Castaneda MD PhD Active HUMALOG 100 UNIT/ML SOLN Take 20 units with breakfast, 10u with lunch and suppetr. INSULIN LISPRO (HUMAN) 87187396935 No Longer Active Alina Castaneda MD PhD Active TRUETEST TEST STRP check sugars 4x/day GLUCOSE BLOOD 50746356013 No Longer Active Alina Castaneda MD PhD Active MORPHINE SULFATE 30 MG TABS 1 pill by mouth twice daily, for pain MORPHINE SULFATE 89536714167 Active Alina Castaneda MD PhD Active ACYCLOVIR 400 MG ORAL TABS 1 pill three times daily x 5 days, for cold sore outbreak ACYCLOVIR 89279384195 No Longer Active Alina Castaneda MD PhD Active PENICILLIN V POTASSIUM 500 MG TABS 1 pill by mouth three times daily PENICILLIN V POTASSIUM 30728543216 No Longer Active Alina Castaneda MD PhD Active LATUDA 80 MG TABS 1 tab by mouth every evening LURASIDONE HCL 47115186251 Active Alina Castaneda MD PhD Active UROXATRAL 10 MG [id number]-LEQ Take 1 tablet by mouth daily ALFUZOSIN HCL 04043386372 No Longer Active Alina Castaneda MD PhD Active THIOTHIXENE 5 MG CAPS by mouth twice a day THIOTHIXENE 53671702391 No Longer Active Alina Castaneda MD PhD Active ZYPREXA 7.5 MG TABS 1 at HS OLANZAPINE 78684127617 No Longer Active Alina Castaneda MD PhD Active LEVEMIR 100 UNIT/ML SOLN Take 70 u at 7-8pm INSULIN DETEMIR 67980225178 Active Maliheh Ziglari NEGATIVE CUTTER Active BD INSULIN SYRINGE 28G X 1/2" 1 ML MISC 1 four times per day INSULIN SYRINGE-NEEDLE U-100 72347091021 Active Mallashondaeh Ziglari NEGATIVE CUTTER Active TOLTERODINE TARTRATE 2 MG TABS 1 pill twice daily, for bladder TOLTERODINE TARTRATE 44463954717 Active Alina Castaneda MD PhD Active DETROL LA 4 MG [id number]-VKO Take 1 tablet by mouth daily TOLTERODINE TARTRATE 77189216274 No Longer Active Alina Castaneda MD PhD Active HYDROCODONE-ACETAMINOPHEN 5-325 MG TABS 2 tabs by mouth three times daily as needed for pain HYDROCODONE-ACETAMINOPHEN 26282380949 Active Alina Castaneda MD PhD Active TERESE CONTOUR TEST STRP monitor blood sugars 3x/day GLUCOSE BLOOD 04707788914 No Longer Active Alina Castaneda MD PhD Active EQL TRUETEST TEST STRP Test blood sugar TID GLUCOSE BLOOD 85401973975 No Longer Active Alina Castaenda MD PhD Active FLUTICASONE PROPIONATE 50 MCG/ACT SUSP 2 sprays each nostril qDay x 30 days FLUTICASONE PROPIONATE 44311904668 No Longer Active Alina Castaneda MD PhD Active IBUPROFEN 200 MG TABS 1 Q 6 hr. PRN IBUPROFEN 05320529240 No Longer Active Alina Castaneda MD PhD Active NIACIN ER 500 MG CR-TABS 4 qHS (for triglycerides) NIACIN 53374144590 No Longer Active Alina Castaneda MD PhD Active ALFUZOSIN HCL ER 10 MG [id number]-TUF 1 tablet daily ALFUZOSIN HCL 97468539664 Active Vanessa Hickey MD Active CLONAZEPAM 1 MG TABS 1 pill by mouth three times daily CLONAZEPAM 35655318658 Active Alina Castaneda MD PhD Active LOVAZA 1 GM CAPS 4 daily (for triglycerides) [id number]-HCVU ETHYL ESTERS 13085380327 Active Alina Castaneda MD PhD Active SAPHRIS 5 MG SUBL by mouth twice a day ASENAPINE MALEATE 09591511310 No Longer Active Maliheh Ziglari NEGATIVE CUTTER Active ACETAMINOPHEN 500 MG TABS 2 Q 6 hr. PRN ACETAMINOPHEN 86473924088 No Longer Active Maliheh Ziglari NEGATIVE CUTTER Active ORPHENADRINE CITRATE ER 100 MG EU52Q-IGH 1 every 12 hr. as needed ORPHENADRINE CITRATE 49041665983 No Longer Active Alina Castaneda MD PhD Active NIACIN CR 500 MG CR-TABS 2 qHS NIACIN 57335972368 No Longer Active Alina Castaneda MD PhD Active AMOXICILLIN 500 MG CAPS 2 po BID x 10 days AMOXICILLIN 02573466995 No Longer Active Alina Castaneda MD PhD Active HYDROCODONE-ACETAMINOPHEN 7.5-325 MG TABS 1 four times a day as needed for pain HYDROCODONE-ACETAMINOPHEN 44089792118 No Longer Active Alina Castaneda MD PhD Active METFORMIN HCL ER 500 MG [id number]-QHY Take three tablets by mouth everyday METFORMIN HCL 74944842066 Active Alina Castaneda MD PhD Active DOXEPIN HCL 10 MG CAPS Take 1 tablet by mouth daily DOXEPIN HCL 04160154803 No Longer Active Salina Han A Active NAVANE 10 MG CAPS 1/2 tablet twice a day THIOTHIXENE No Longer Active Salina Han A Active CYCLOBENZAPRINE HCL 10 MG TABS 1/2 tablet by mouth every 8 hours as needed for muscle spasms CYCLOBENZAPRINE HCL 40239592458 No Longer Active Alina Castaneda MD PhD Active BACTROBAN 2 % CREAM apply to ear and nose twice daily MUPIROCIN CALCIUM 73555681856 No Longer Active Alina Castaneda MD PhD Active HYDROCODONE-ACETAMINOPHEN 5-325 MG TABS take one tablet by mouth every four hours as needed for pain HYDROCODONE-ACETAMINOPHEN 88317833032 No Longer Active Alina Castaneda MD PhD Active ZOLPIDEM TARTRATE 10 MG TABS take at bedtime ZOLPIDEM TARTRATE 30753247819 Active Alina Castaneda MD PhD Active ZYPREXA 5 MG TABS take one tablet by mouth every evening OLANZAPINE 76768737160 No Longer Active Alina Castaneda MD PhD Active ALBUTEROL SULFATE 0.083 % NEBU SOLN one vial per nebulizer TID and PRN cough/ soa ALBUTEROL SULFATE 12501593281 No Longer Active Alina Castaneda MD PhD Active GUAIFENESIN 600 MG LZ83G-NGK 1 tablet by mouth twice daily if needed for cough GUAIFENESIN 17362979378 No Longer Active Marvel MARROQUIN Active AZITHROMYCIN 500 MG SOLR 1 po q day AZITHROMYCIN 08222500381 No Longer Active Alina Castaneda MD PhD Active METOPROLOL SUCCINATE 100 MG FX18S-CLF 1 by mouth daily for blood pressure METOPROLOL SUCCINATE 00865589673 Active Alina Castaneda MD PhD Active PROMETHAZINE-CODEINE 6.25-10 MG/5ML SYRP 1 tsp po q 6 hours prn cough PROMETHAZINE-CODEINE 79736662986 No Longer Active Alina Castaneda MD PhD Active CEFDINIR 300 MG CAPS by mouth twice a day CEFDINIR 12157715512 No Longer Active Alina Castaneda MD PhD Active METFORMIN HCL 500 MG BY52B-VYG Take 3 tablets by mouth everyday METFORMIN HCL 69682617265 No Longer Active Alina Castaneda MD PhD Active LEVEMIR 100 UNIT/ML SOLN 90 units SQ qHS INSULIN DETEMIR 41313603389 No Longer Active Marvel MARROQUIN Active TOPROL XL 100 MG [id number] 1 @ HS METOPROLOL SUCCINATE 56444384598 No Longer Active Marvel MARROQUIN Active ALLOPURINOL 300 MG TABS Take one by mouth daily ALLOPURINOL 81266226042 Active Alina Castaneda MD PhD Active ZYPREXA 10 MG TABS Take one by mouth daily OLANZAPINE 73877089567 No Longer Active Alina Castaneda MD PhD Active NOVOLOG 100 UNIT/ML SOLN 40 units with every meal INSULIN ASPART 56761604762 No Longer Active Alina Castaneda MD PhD Active VERAPAMIL HCL CR 120 MG TAB CR 1 qPM VERAPAMIL HCL 43068169688 No Longer Active Salina Han [facility] Active ZYPREXA 15 MG TABS Take 1 tablet by mouth daily OLANZAPINE 54215139081 No Longer Active Marvel MARROQUIN Active LISINOPRIL 20 MG TABS 1 BID LISINOPRIL 36269583751 Active Alina Castaneda MD PhD Active ALBUTEROL SULFATE (2.5 MG/3ML) 0.083% NEBU 1 neb tid and prn cough ALBUTEROL SULFATE 70489442199 No Longer Active Alina Castaneda MD PhD Active FLUVOXAMINE MALEATE 100 MG TABS Take one (1) tablet by mouth am, 1/2 at noon, 1 pm FLUVOXAMINE MALEATE 38120440800 Active Alina Castaneda MD PhD Active TRAVATAN Z 0.004 % SOLN 1 gtt each eye daily TRAVOPROST 79212751666 Active ITZEL SuarezAriela Active LANTUS 100 UNIT/ML SOLN 60 units sq q hs INSULIN GLARGINE 70943345385 No Longer Active CRYSTAL Suarez Active ALBUTEROL SULFATE (2.5 MG/3ML) 0.083% NEBU 1 neb tid and prn cough ALBUTEROL SULFATE (2.5 MG/3ML) 0.083% NEBU 936325 ALBUTEROL SULFATE Inactive ZYPREXA 15 MG TABS Take 1 tablet by mouth daily ZYPREXA 15 MG TABS 424046 OLANZAPINE Inactive VERAPAMIL HCL CR 120 MG TAB CR 1 qPM VERAPAMIL HCL CR 120 MG TAB CR VERAPAMIL HCL Inactive ZYPREXA 10 MG TABS Take one by mouth daily ZYPREXA 10 MG TABS 710547 OLANZAPINE Inactive TOPROL XL 100 MG VM91A-FEP 1 @ HS TOPROL XL 100 MG LB02O-HLN METOPROLOL SUCCINATE Inactive LEVEMIR 100 UNIT/ML SOLN 90 units SQ qHS LEVEMIR 100 UNIT/ML SOLN INSULIN DETEMIR Inactive PROMETHAZINE-CODEINE 6.25-10 MG/5ML SYRP 1 tsp po q 6 hours prn cough PROMETHAZINE-CODEINE 6.25-10 MG/5ML SYRP 902020 PROMETHAZINE- CODEINE Inactive GUAIFENESIN 600 MG WF31J-DTE 1 tablet by mouth twice daily if needed for cough GUAIFENESIN 600 MG MI34R-QUI GUAIFENESIN Inactive ALBUTEROL SULFATE 0.083 % NEBU SOLN one vial per nebulizer TID and PRN cough/ soa ALBUTEROL SULFATE 0.083 % NEBU SOLN 963311 ALBUTEROL SULFATE Inactive ZYPREXA 5 MG TABS take one tablet by mouth every evening ZYPREXA 5 MG TABS 288758 OLANZAPINE Inactive HYDROCODONE-ACETAMINOPHEN 5-325 MG TABS take one tablet by mouth every four hours as needed for pain HYDROCODONE-ACETAMINOPHEN 5-325 MG TABS 047544 HYDROCODONE-ACETAMINOPHEN Inactive BACTROBAN 2 % CREAM apply to ear and nose twice daily BACTROBAN 2 % CREAM 375262 MUPIROCIN CALCIUM Inactive CYCLOBENZAPRINE HCL 10 MG TABS 1/2 tablet by mouth every 8 hours as needed for muscle spasms CYCLOBENZAPRINE HCL 10 MG TABS 250825 CYCLOBENZAPRINE HCL Inactive NAVANE 10 MG CAPS 1/2 tablet twice a day NAVANE 10 MG CAPS THIOTHIXENE Inactive DOXEPIN HCL 10 MG CAPS Take 1 tablet by mouth daily DOXEPIN HCL 10 MG CAPS 6333142 DOXEPIN HCL Inactive HYDROCODONE-ACETAMINOPHEN 7.5-325 MG TABS 1 four times a day as needed for pain HYDROCODONE-ACETAMINOPHEN 7.5-325 MG TABS 183825 HYDROCODONE-ACETAMINOPHEN Inactive NIACIN CR 500 MG CR-TABS 2 qHS NIACIN CR 500 MG CR- TABS NIACIN Inactive ORPHENADRINE CITRATE ER 100 MG SZ39O-RFE 1 every 12 hr. as needed ORPHENADRINE CITRATE ER 100 MG WY82M-UBH ORPHENADRINE CITRATE Inactive ACETAMINOPHEN 500 MG TABS 2 Q 6 hr. PRN ACETAMINOPHEN 500 MG TABS 325311 ACETAMINOPHEN Inactive SAPHRIS 5 MG SUBL by mouth twice a day SAPHRIS 5 MG SUBL ASENAPINE MALEATE Inactive NIACIN ER 500 MG CR-TABS 4 qHS (for triglycerides) NIACIN ER 500 MG CR-TABS NIACIN Inactive IBUPROFEN 200 MG TABS 1 Q 6 hr. PRN IBUPROFEN 200 MG TABS 179565 IBUPROFEN Inactive FLUTICASONE PROPIONATE 50 MCG/ACT SUSP 2 sprays each nostril qDay x 30 days FLUTICASONE PROPIONATE 50 MCG/ACT SUSP 436248 FLUTICASONE PROPIONATE Inactive EQL TRUETEST TEST STRP Test blood sugar TID EQL TRUETEST TEST STRP GLUCOSE BLOOD Inactive TERESE CONTOUR TEST STRP monitor blood sugars 3x/day TERESE CONTOUR TEST STRP GLUCOSE BLOOD Inactive DETROL LA 4 MG [id number]-UXF Take 1 tablet by mouth daily DETROL LA 4 MG GS54M-ETS TOLTERODINE TARTRATE Inactive ZYPREXA 7.5 MG TABS 1 at HS ZYPREXA 7.5 MG TABS 979885 OLANZAPINE Inactive THIOTHIXENE 5 MG CAPS by mouth twice a day THIOTHIXENE 5 MG CAPS 602139 THIOTHIXENE Inactive UROXATRAL 10 MG US79I-LDQ Take 1 tablet by mouth daily UROXATRAL 10 MG FR49W-XDW ALFUZOSIN HCL Inactive ACYCLOVIR 400 MG ORAL TABS 1 pill three times daily x 5 days, for cold sore outbreak ACYCLOVIR 400 MG ORAL TABS 030203 ACYCLOVIR Inactive TRUETEST TEST STRP check sugars 4x/day TRUETEST TEST STRP GLUCOSE BLOOD Inactive HUMALOG 100 UNIT/ML SOLN Take 20 units with breakfast, 10u with lunch and suppetr. HUMALOG 100 UNIT/ML SOLN INSULIN LISPRO ( HUMAN) Inactive CYCLOBENZAPRINE HCL 10 MG TABS 1 tablet by mouth three times daily, scheduled CYCLOBENZAPRINE HCL 10 MG TABS 002840 CYCLOBENZAPRINE HCL Inactive ACCU-CHEK ROSA INVITR STRP use strips with device to check blood sugars 3 times daily ACCU-CHEK ROSA INVITR STRP GLUCOSE BLOOD Inactive ACCU-CHEK ROSA UZMA Use device to check blood sugars ACCU-CHEK ROSA UZMA BLOOD GLUCOSE MONITORING SUPPL Inactive CEFDINIR 300 MG CAPS by mouth twice a day CEFDINIR 300 MG CAPS 167847 CEFDINIR Inactive AZITHROMYCIN 500 MG SOLR 1 po q day AZITHROMYCIN 500 MG SOLR 317921 AZITHROMYCIN Inactive AMOXICILLIN 500 MG CAPS 2 po BID x 10 days AMOXICILLIN 500 MG CAPS 165770 AMOXICILLIN Inactive PENICILLIN V POTASSIUM 500 MG TABS 1 pill by mouth three times daily PENICILLIN V POTASSIUM 500 MG TABS 471774 PENICILLIN V POTASSIUM Inactive Immunizations Vaccine Administration [...] Fluvirin, Fluarix, Agriflu(>=18 yo)) Fluzone (>3 yrs.) [[id number]] Influenza, seasonal, injectable pneumococcal immunization administered Pneumovax [...] HGBA1C - Chemistry sodium, serum 130 mmol/L 585-727 0506/06/09 potassium, serum 4.0 mmol/L 3.5-5.2 chloride, serum 92 mmol/L 98-107 carbon dioxide, venous blood 22.1 mmol/L 21.0-32.0 blood glucose 60 mg/dL 65-110 calcium, serum 9.5 mg/dL 8.5-10.1 urea nitrogen, blood 14 mg/dL 7-18 creatinine, serum 1.30 mg/dL 0.60-1.30 hemoglobin A1C, blood, as % of total hemoglobin 6.0 % 4.3-6.0 sodium, serum 131 mmol/L 447-619 5070/12/30 potassium, serum 5.0 mmol/L 3.5-5.2 chloride, serum [...] 6.0 mg/dL 2.6-7.2 sodium, serum 130 mmol/L 781-958 1129/05/01 potassium, serum 5.2 mmol/L 3.5-5.2 chloride, serum [...] 0.40 mg/dL 0.00-1.00 cholesterol, serum 151 mg/dL 911-399 1391/05/01 triglyceride, serum, fasting 356 mg/dL 30-200 HDL [...] Panel - Chemistry sodium, serum 127 mmol/L 131-904 5522/10/27 potassium, serum 4.1 mmol/L 3.5-5.2 chloride, serum [...] mg/dL Encounters Code Encounter Date Provider Facility CPT-21057 Level 2 Est. Patient 12:52:14 CDT Alina Castaneda MD PhD [facility]-91874 Level 3 Est. Patient 11:51:18 WEB SYSTEMS DEVELOPER Alina Castaneda MD [facility]-89314 Level 3 Est. Patient 10:09:22 WEB SYSTEMS DEVELOPER Alina Castaneda MD [facility]-40678 Level 3 Est. Patient 14:36:26 [facility]B SYSTEMS [facility]EL[facility] CPT-37687 Level 3 Est. Patient 13:34:47 WEB SYSTEMS DEVELOPER Alina Castaneda MD [facility]-79185 Level 3 Est. Patient 19:52:08 WEB SYSTEMS DEVELOPER Alina Castaneda MD [facility]-49945 Level 3 Est. Patient 10:01:51 WEB SYSTEMS DEVELOPER [facility] CPT-56149 Level 3 Est. Patient 21:54:06 CDT Vanessa Hickey MD [facility]-57300 Level 3 Est. Patient 08:54:46 CDT Alina Castaneda MD [facility]-78727 Level 3 Est. Patient 09:32:11 [facility]-04955 Level 3 Est. Patient 12:02:49 CDT Alina Castaneda MD [facility]-25043 Level 3 Est. Patient 19:17:33 CDT Alina Castaneda MD [facility]00769 Level 3 Est. Patient 13:19:10 CDT Marvel Araceli [facility]-33232 Level 3 Est. Patient 08:20:05 CDT Alina Castaneda MD [facility]86217 Level 3 Est. Patient 15:17:18 CDT Alina Castaneda MD [facility]62030 Level 3 Est. Patient 14:25:36 WEB SYSTEMS DEVELOPER [facility] Est[facility] Patient 10:09:15 WEB SYSTEMS DEVELOPER [facility] Level 3 Est. Patient 21:28:43 CDT Alina Castaneda MD [facility]-33956 Level 3 Est. Patient 15:20:11 CDT [facility] Araceli [facility]-41120 Level 4 Est. Patient 19:08:12 CDT Alina Castaneda MD [facility]-42067 Level 3 Est. Patient 15:06:39 CDT Marvel Charles [facility]-33275 Level 4 Est. Patient 17:48:15 CDT Alina Castaneda MD [facility]-05094 Level 3 Est. Patient 14:53:49 CDT Alina Castaneda MD [facility]-39314 Level 3 Est. Patient 09:35:16 CDT Alina Castaneda MD [facility]77490 Level 3 Est. Patient 12:23:22 CDT Alina Castaneda MD [facility]-37102 Level 3 Est. Patient 16:19:15 CDT Alina Castaneda MD [facility]-32935 Level 3 Est. Patient 21:39:56 WEB SYSTEMS DEVELOPER Alina Castaneda MD [facility]99625 Level 4 Est. Patient 14:12:56 WEB SYSTEMS DEVELOPER Alina Castaneda MD [facility]60303 Level 2 Est. Patient 15:34:57 WEB SYSTEMS DEVELOPER Alina Castaneda MD [facility]14856 Level 3 Est. Patient 12:17:04 WEB SYSTEMS DEVELOPER Alina Castaneda MD [facility]13411 Level 3 Est. Patient 09:18:18 WEB SYSTEMS DEVELOPER Marvel Charles [facility]-13465 Level 2 Est. Patient 21:50:24 CDT Alina Castaneda MD [facility]-14203 Level 3 Est. Patient 09:17:28 CDT Marvel Charles [facility]-59033 Level 4 Est. Patient 18:54:02 CDT Alina Castaneda MD [facility]-23574 Level 3 Est. Patient 10:47:10 CDT lAina Castaneda MD [facility]89921 Level 3 Est. Patient 09:22:20 CDT Marvel Charles [facility]-29390 Level 3 Est. Patient 16:39:43 CDT Marvel Charles [facility]-48083 Level 3 Est. Patient 16:05:16 CDT Alina Castaneda MD [facility]21196 Level 3 Est. Patient 00:29:15 CDT Alina Castaneda MD PhD [facility] CPT-72393 Level 3 Est. Patient 10:49:22 WEB SYSTEMS DEVELOPER Marvel Thurstonestela [facility] CPT-37212 Level 3 Est. Patient 21:30:19 WEB SYSTEMS DEVELOPER Alina Castaneda MD [facility] CPT-42556 Level 4 Est. Patient 17:04:11 WEB SYSTEMS DEVELOPER Marvel [facility] CPT-12557 Level 3 Est. Patient 15:34:11 WEB SYSTEMS DEVELOPER [facility]126 Level 2 Est. Patient 12:51:58 WEB SYSTEMS DEVELOPER Alina Castaneda MD [facility] CPT-11303 Level 3 Est. Patient 13:20:01 WEB SYSTEMS DEVELOPER Alina Castaneda MD [facility] CPT-61339 Level 3 Est. Patient 09:23:35 CDT Alina Castaneda MD [facility] Procedures Code Procedure Name Date Entry Date Standard Description CPT-53384 Bladder Scan 21:54:06 CDT CPT-G0008 Administration of Influenza Virus Vaccine 13:05:26 CDT CPT-18582 Fluzone Quadrivalent Intramuscular Suspension 0.5 ML 13: 05:26 CDT CPT-13074 Administration single or combination vaccine inc oral 11 :49:51 CDT CPT-06725 Pneumovax 11:49:51 CDT CPT-64756 Ribs unilateral 2V 12:37:22 WEB SYSTEMS DEVELOPER CPT-56573 Chest 2V Frontal and Lat 17:15:26 CDT CPT-90621 Abx/Therapy Injection 18:54:02 CDT CPT-J0696 Rocephin 1000 mg (Ceftriaxone) 16:00:32 CDT CPT-12587 Chest 2V Frontal and Lat 15:26:45 CDT CPT-79717 Chest 2V Frontal and Lat 10:23:27 CDT CPT-08117 Venipuncture Draw Fee 10:11:00 CDT CPT-38059 Administration single or combination vaccine inc oral 11 :56:38 CDT CPT-41871 Influenza split virus > age 3 11:56:38 CDT CPT-07945 Venipuncture Draw Fee 08:49:54 WEB SYSTEMS DEVELOPER CPT-00820 EKG Trac and Interp 17:54:19 WEB SYSTEMS DEVELOPER
--- OUTSIDE RECORDS SUMMARY | 2018-07-02 14:27 | XMS REPORT | Clinical Summary ---
Author Author Admin, TERELL Organization [facility] Address Unknown Phone Unavailable Allergies, Adverse 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 Erazo RADIO RECORDER Benign paroxysmal positional vertigo Vertigo, benign paroxysmal position 386.11 Inactive Mima Erazo RADIO RECORDER Benign paroxysmal positional vertigo High-risk sexual behavior V69.2 Active Alina Castaneda MD PhD High-risk sexual behavior Erectile dysfunction 302.72 Active Alina Castaneda MD PhD Psychosexual dysfunction with inhibited sexual excitement Constipation 564.00 Active Alina Castaneda MD PhD Constipation, unspecified Skin lesion 709.9 Active Alina Castaneda MD PhD Unspecified disorder of skin and subcutaneous tissue Malaise and fatigue 780.79 Active Cherelle Speaks RADIO RECORDER Other malaise and fatigue Diarrhea 787.91 Active Cherelle Speaks RADIO RECORDER Diarrhea PHARYNGITIS 462 Active Cherelle Speaks RADIO RECORDER Acute pharyngitis Colitis 558.9 Active Mima Erazo RADIO RECORDER Other and unspecified noninfectious gastroenteritis and colitis WOUND, OPEN, NOSE ICD-873.20 Inactive Alina Castaneda MD PhD DIABETES, TYPE 2 ICD-250.00 Inactive Alina Castaneda MD PhD HYPERTENSION ICD-401.9 Inactive Alina Castaneda MD PhD URI ICD-465.9 Inactive Alina Castaneda MD PhD CHEST PAIN ICD-786.50 Inactive Alina Castaneda MD PhD FH STROKE ICD-V17.1 Inactive Marvel Charles FLATWORK FEEDER FATIGUE ICD-780.79 Inactive Alina Castaneda MD PhD [...] SKIN LESION ICD-709.9 Roro Castaneda MD PhD ABNORMAL HEART RHYTHMS ICD-427.9 Roro Castaneda MD PhD DIABETIC HYPOGLYCEMIA, TYPE II ICD-250.80 Inactive Marvel 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 Inactive Alina Castaneda MD PhD Diabetes mellitus, type II, uncontrolled ICD-250.02 Roro Castaneda MD PhD SPECIAL SCREENING FOR MALIGNANT NEOPLASM OF PROSTATE ICD-V76.44 Roro Castaneda MD PhD SINUSITIS, ACUTE ICD-461.9 Inactive Alina Castaneda MD PhD Confusion ICD-298.9 Inactive Alina Castaneda MD PhD Open wound of tongue and floor of mouth, uncomplicated ICD-873.64 Inactive Alina Castaneda MD PhD Chest pain, atypical ICD-786.59 Inactive Alina aCstaneda MD PhD Chest pain, atypical ICD-786.59 Inactive Alina Castaneda MD PhD Dizziness ICD-780.4 Inactive Alina Castaneda MD PhD Hypoglycemia ICD-251.2 Inactive Alina Castaneda MD PhD Medication List Medication Instructions Start Date Stop Date Generic Name NDC Status Provider Patient Instruction TRUEPLUS LANCETS 30G MISC 3 a day LANCETS [id number] Active Marvel MARROQUIN Active TOLTERODINE TARTRATE 2 MG TABS 1 pill twice daily, for bladder TOLTERODINE TARTRATE 72528534174 No Longer Active Vanessa Hickey MD Active AMITIZA 24 MCG ORAL CAPS Take one capsule BID for constipation. LUBIPROSTONE 39432202022 No Longer Active Vanessa Hickey MD Active LOMOTIL 2.5-0.025 MG ORAL TABS take 1-2 tabs PO after each stool, no more than 8 in 24 hours DIPHENOXYLATE-ATROPINE 81631905870 Active Grace ROJAS Active FLUVOXAMINE MALEATE 100 MG ORAL TABS take one tab every AM et HS, and take 1/ 2 tab at noon FLUVOXAMINE MALEATE 22400849218 Active Grace ROJAS Active METOPROLOL SUCCINATE 100 MG [id number]-[id number] 1 by mouth daily for blood pressure METOPROLOL SUCCINATE 07917581996 No Longer Active Grace ROJAS Active METFORMIN HCL ER 500 MG [id number]-POZ Take three tablets by mouth everyday METFORMIN HCL 56001224020 No Longer Active Grace Azam RMA Active LOVAZA 1 GM CAPS 4 daily (for triglycerides) OMEGA-3- ACID ETHYL ESTERS 66261490092 No Longer Active Grace Azam RMA Active TRAZODONE HCL 100 MG ORAL TABS 1 tab by mouth for sleep TRAZODONE HCL 15133368601 No Longer Active Grace Azam RMA Active NOVOFINE 32G X 6 MM MISC use one four times per day INSULIN PEN NEEDLE 77797404680 No Longer Active Grace Azam RMA Active BACTROBAN 2 % CREAM Apply to affected area BID for up to 10 days MUPIROCIN CALCIUM 90921040895 No Longer Active Grace Azam RMA Active ZOFRAN 4 MG TABS 1 po q4hr PRN [place]a ONDANSETRON HCL 81201038225 Active Salina Emely RMA Active KEFLEX 500 MG CAP 1 po BID x 7 days CEPHALEXIN 27406706638 No Longer Active Cherelle Felixs RADIO RECORDER Active FLUVOXAMINE MALEATE 100 MG TABS Take one (1) tablet by mouth am, 1/2 at noon FLUVOXAMINE MALEATE 44974628712 No Longer Active Mima Erazo APRN Active CORICIDIN HBP CONGESTION/COUGH 10-200 MG ORAL CAPS Take as directed on box as needed for cold/flu symptoms DEXTROMETHORPHAN-GUAIFENESIN 83936101140 Active Cherelle Speaks RADIO RECORDER Active OMEGA-3 300 MG ORAL CAPS 4 caps by mouth daily OMEGA-3 FATTY ACIDS 00646091295 Active Cherelle Speaks RADIO RECORDER Active FLUVOXAMINE MALEATE 100 MG ORAL TABS Take 1/2 tab at noon FLUVOXAMINE MALEATE 64987820118 No Longer Active Cherelle Speaks RADIO RECORDER Active [facility] LUBR[facility]ANT EYE DROPS 0.4-0.3 % OPHTH SOLN POLYETHYL GLYCOL-PROPYL GLYCOL 81051714027 Active Mima Yokum RADIO RECORDER Active CLONAZEPAM 1 MG TABS 1/2 pill by mouth three times daily CLONAZEPAM 45635903668 Active Alina Castaneda MD PhD Active MIRALAX POWD 17g by mouth daily, for constipation POLYETHYLENE GLYCOL 3350 64249508563 Active Alina Castaneda MD PhD Active HYDROCODONE-ACETAMINOPHEN 5-325 MG TABS 2 tabs by mouth three times daily for pain HYDROCODONE-ACETAMINOPHEN 31973790196 Active Mima Erazo RADIO RECORDER Active HUMALOG KWIKPEN 100 UNIT/ML SC SOPN 20 units with breakfast, 10 units with lunch, 10 units with dinner, for diabetes INSULIN LISPRO (HUMAN ) 52249211043 Active Alina Castaneda MD PhD Active LEVEMIR FLEXTOUCH 100 UNIT/ML SC SOPN 70 units SQ each evening, for diabetes INSULIN DETEMIR 33243594593 Active Mima Erazo RADIO RECORDER Active LATUDA 120 MG ORAL TABS 1 pill by mouth nightly LURASIDONE HCL 94910768802 Active Alina Castaneda MD PhD Active COLACE 100 MG CAPS 1 pill by mouth twice daily, for constipation DOCUSATE SODIUM 30768917644 Active Alina Castaneda MD PhD Active TRUETEST TEST STRP check blood sugars 3x/day GLUCOSE BLOOD 98348543699 Active Marvel MENDOZAP Active ACCU-CHEK ROSA UZMA Use device to check blood sugars BLOOD GLUCOSE MONITORING SUPPL 81249927346 No Longer Active Marvel MARROQUIN Active ACCU-CHEK ROSA INVITR STRP use strips with device to check blood sugars 3 times daily GLUCOSE BLOOD 62461607224 No Longer Active Marvel MENDOZAP Active VERAPAMIL HCL ER 180 MG ORAL CR-TABS 1 pill by mouth twice daily, for migraine prevention VERAPAMIL HCL 97367252954 Active Alina Castaneda MD PhD Active CYCLOBENZAPRINE HCL 10 MG TABS 1 tablet by mouth three times daily, scheduled CYCLOBENZAPRINE HCL 06288925721 No Longer Active Alina Castaneda MD PhD Active HUMALOG 100 UNIT/ML SOLN Take 20 units with breakfast, 10u with lunch and suppetr. INSULIN LISPRO (HUMAN) 93344912594 No Longer Active Alina Castaneda MD PhD Active TRUETEST TEST STRP check sugars 4x/day GLUCOSE BLOOD 03037224748 No Longer Active Alina Castaneda MD PhD Active MORPHINE SULFATE 30 MG TABS 1 pill by mouth twice daily, for pain MORPHINE SULFATE 09558365601 Active Mima Erazo RADIO RECORDER Active ACYCLOVIR 400 MG ORAL TABS 1 pill three times daily x 5 days, for cold sore outbreak ACYCLOVIR 99495100936 No Longer Active Alina Castaneda MD PhD Active PENICILLIN V POTASSIUM 500 MG TABS 1 pill by mouth three times daily PENICILLIN V POTASSIUM 33171068395 No Longer Active Alina Castaneda MD PhD Active UROXATRAL 10 MG [id number]-[id number] Take 1 tablet by mouth daily ALFUZOSIN HCL 01222647126 No Longer Active Alina Castaneda MD PhD Active THIOTHIXENE 5 MG CAPS by mouth twice a day THIOTHIXENE 61690667021 No Longer Active Alina Castaneda MD PhD Active ZYPREXA 7.5 MG TABS 1 at HS OLANZAPINE 09947345295 No Longer Active Alina Castaneda MD PhD Active BD INSULIN SYRINGE 28G X 1/2" 1 ML MISC 1 four times per day INSULIN SYRINGE-NEEDLE U-100 63930298611 Active [facility] Gurdeepglestela [facility] Active DETROL LA 4 MG IH63E-VHL Take 1 tablet by mouth daily TOLTERODINE TARTRATE 16521746755 No Longer Active Alina Castaneda MD PhD Active TERESE CONTOUR TEST STRP monitor blood sugars 3x/day GLUCOSE BLOOD 74883796991 No Longer Active Alina Castaneda MD PhD Active EQL TRUETEST TEST STRP Test blood sugar TID GLUCOSE BLOOD 76725680262 No Longer Active Alina Castaneda MD PhD Active FLUTICASONE PROPIONATE 50 MCG/ACT SUSP 2 sprays each nostril qDay x 30 days FLUTICASONE PROPIONATE 19623921808 No Longer Active Alina Castaneda MD PhD Active IBUPROFEN 200 MG TABS 1 Q 6 hr. PRN IBUPROFEN 67294028518 No Longer Active Alina Castaneda MD PhD Active NIACIN ER 500 MG CR-TABS 4 qHS (for triglycerides) NIACIN 38783560470 No Longer Active Alina Castaneda MD PhD Active ALFUZOSIN HCL ER 10 MG JA96F-EMS 1 tablet daily ALFUZOSIN HCL 15980021778 Active Vanessa Hickey MD Active SAPHRIS 5 MG SUBL by mouth twice a day ASENAPINE MALEATE 38107236400 No Longer Active Mallashondaeh Ziglari FLATWORK FEEDER Active ACETAMINOPHEN 500 MG TABS 2 Q 6 hr. PRN ACETAMINOPHEN 24676470767 No Longer Active Maliheh Ziglari FLATWORK FEEDER Active ORPHENADRINE CITRATE ER 100 MG DN96V-KYG 1 every 12 hr. as needed ORPHENADRINE CITRATE 87822017573 No Longer Active Alina Castaneda MD PhD Active NIACIN CR 500 MG CR-TABS 2 qHS NIACIN 00158801858 No Longer Active Alina Castaneda MD PhD Active AMOXICILLIN 500 MG CAPS 2 po BID x 10 days AMOXICILLIN 52072391911 No Longer Active Alina Castaneda MD PhD Active HYDROCODONE-ACETAMINOPHEN 7.5-325 MG TABS 1 four times a day as needed for pain HYDROCODONE-ACETAMINOPHEN 57477621346 No Longer Active Alina Castaneda MD PhD Active DOXEPIN HCL 10 MG CAPS Take 1 tablet by mouth daily DOXEPIN HCL 07991022912 No Longer Active Salina ROJAS Active NAVANE 10 MG CAPS 1/2 tablet twice a day THIOTHIXENE No Longer Active Salina ROJAS Active CYCLOBENZAPRINE HCL 10 MG TABS 1/2 tablet by mouth every 8 hours as needed for muscle spasms CYCLOBENZAPRINE HCL 92141258406 No Longer Active Alina Castaneda MD PhD Active BACTROBAN 2 % CREAM apply to ear and nose twice daily MUPIROCIN CALCIUM 08289187230 No Longer Active Alina Castaneda MD PhD Active HYDROCODONE-ACETAMINOPHEN 5-325 MG TABS take one tablet by mouth every four hours as needed for pain HYDROCODONE-ACETAMINOPHEN 71176425778 No Longer Active Alina Castaneda MD PhD Active ZOLPIDEM TARTRATE 10 MG TABS take at bedtime ZOLPIDEM TARTRATE 58936337669 Active Alina Castaneda MD PhD Active ZYPREXA 5 MG TABS take one tablet by mouth every evening OLANZAPINE 06552687319 No Longer Active Alina Castaneda MD PhD Active ALBUTEROL SULFATE 0.083 % NEBU SOLN one vial per nebulizer TID and PRN cough/ soa ALBUTEROL SULFATE 06596298645 No Longer Active Alina Castaneda MD PhD Active GUAIFENESIN 600 MG KY04W-NPJ 1 tablet by mouth twice daily if needed for cough GUAIFENESIN 98510374835 No Longer Active Marvel MARROQUIN Active AZITHROMYCIN 500 MG SOLR 1 po q day AZITHROMYCIN 44162380152 No Longer Active Alina Castaneda MD PhD Active PROMETHAZINE-CODEINE 6.25-10 MG/5ML SYRP 1 tsp po q 6 hours prn cough PROMETHAZINE-CODEINE 60158437530 No Longer Active Alina Castaneda MD PhD Active CEFDINIR 300 MG CAPS by mouth twice a day CEFDINIR 06059444239 No Longer Active Alina Castaneda MD PhD Active METFORMIN HCL 500 MG HQ06R-LZV Take 3 tablets by mouth everyday METFORMIN HCL 72413850791 No Longer Active Alina Castaneda MD PhD Active LEVEMIR 100 UNIT/ML SOLN 90 units SQ qHS INSULIN DETEMIR 10784311033 No Longer Active Marvel MARROQUIN Active TOPROL XL 100 MG [id number]-UXZ 1 @ HS METOPROLOL SUCCINATE 09372556322 No Longer Active Marvel MARROQUIN Active ALLOPURINOL 300 MG TABS Take one by mouth daily ALLOPURINOL 77734546628 Active Alina Castaneda MD PhD Active ZYPREXA 10 MG TABS Take one by mouth daily OLANZAPINE 79319188293 No Longer Active Alina Castaneda MD PhD Active NOVOLOG 100 UNIT/ML SOLN 40 units with every meal INSULIN ASPART 67149721101 No Longer Active Alina Castaneda MD PhD Active VERAPAMIL HCL CR 120 MG TAB CR 1 qPM VERAPAMIL HCL 83372900467 No Longer Active Salina ROJAS Active ZYPREXA 15 MG TABS Take 1 tablet by mouth daily OLANZAPINE 96834338276 No Longer Active Marvel MARROQUIN Active LISINOPRIL 20 MG TABS 1 BID LISINOPRIL 66085754900 Active Alina Castaneda MD PhD Active ALBUTEROL SULFATE (2.5 MG/3ML) 0.083% NEBU 1 neb tid and prn cough ALBUTEROL SULFATE 76133544644 No Longer Active Alina Castaneda MD PhD Active TRAVATAN Z 0.004 % SOLN 1 gtt each eye daily TRAVOPROST 37206144599 Active CRYSTAL Suarez Active LANTUS 100 UNIT/ML SOLN 60 units sq q hs INSULIN GLARGINE 79501899262 No Longer Active CRYSTAL Suarez Active ALBUTEROL SULFATE (2.5 MG/3ML) 0.083% NEBU 1 neb tid and prn cough ALBUTEROL SULFATE (2.5 MG/3ML) 0.083% NEBU 762349 ALBUTEROL SULFATE Inactive ZYPREXA 15 MG TABS Take 1 tablet by mouth daily ZYPREXA 15 MG TABS 200414 OLANZAPINE Inactive VERAPAMIL HCL CR 120 MG TAB CR 1 qPM VERAPAMIL HCL CR 120 MG TAB CR VERAPAMIL HCL Inactive ZYPREXA 10 MG TABS Take one by mouth daily ZYPREXA 10 MG TABS 721142 OLANZAPINE Inactive TOPROL XL 100 MG [id number]-DAL 1 @ HS TOPROL XL 100 MG SQ25H-ZDT METOPROLOL SUCCINATE Inactive LEVEMIR 100 UNIT/ML SOLN 90 units SQ qHS LEVEMIR 100 UNIT/ML SOLN INSULIN DETEMIR Inactive PROMETHAZINE-CODEINE 6.25-10 MG/5ML SYRP 1 tsp po q 6 hours prn cough PROMETHAZINE-CODEINE 6.25-10 MG/5ML SYRP 425248 PROMETHAZINE- CODEINE Inactive GUAIFENESIN 600 MG JL92C-VZL 1 tablet by mouth twice daily if needed for cough GUAIFENESIN 600 MG KY35V-NJJ GUAIFENESIN Inactive ALBUTEROL SULFATE 0.083 % NEBU SOLN one vial per nebulizer TID and PRN cough/ soa ALBUTEROL SULFATE 0.083 % NEBU SOLN 524520 ALBUTEROL SULFATE Inactive ZYPREXA 5 MG TABS take one tablet by mouth every evening ZYPREXA 5 MG TABS 198088 OLANZAPINE Inactive HYDROCODONE-ACETAMINOPHEN 5-325 MG TABS take one tablet by mouth every four hours as needed for pain HYDROCODONE-ACETAMINOPHEN 5-325 MG TABS 494539 HYDROCODONE-ACETAMINOPHEN Inactive BACTROBAN 2 % CREAM apply to ear and nose twice daily BACTROBAN 2 % CREAM 635611 MUPIROCIN CALCIUM Inactive CYCLOBENZAPRINE HCL 10 MG TABS 1/2 tablet by mouth every 8 hours as needed for muscle spasms CYCLOBENZAPRINE HCL 10 MG TABS 347680 CYCLOBENZAPRINE HCL Inactive NAVANE 10 MG CAPS 1/2 tablet twice a day NAVANE 10 MG CAPS THIOTHIXENE Inactive DOXEPIN HCL 10 MG CAPS Take 1 tablet by mouth daily DOXEPIN HCL 10 MG CAPS 7966277 DOXEPIN HCL Inactive HYDROCODONE-ACETAMINOPHEN 7.5-325 MG TABS 1 four times a day as needed for pain HYDROCODONE-ACETAMINOPHEN 7.5-325 MG TABS 381586 HYDROCODONE-ACETAMINOPHEN Inactive NIACIN CR 500 MG CR-TABS 2 qHS NIACIN CR 500 MG CR- TABS NIACIN Inactive ORPHENADRINE CITRATE ER 100 MG [id number]-FXN 1 every 12 hr. as needed ORPHENADRINE CITRATE ER 100 MG KS45R-QUL ORPHENADRINE CITRATE Inactive ACETAMINOPHEN 500 MG TABS 2 Q 6 hr. PRN ACETAMINOPHEN 500 MG TABS 855195 ACETAMINOPHEN Inactive SAPHRIS 5 MG SUBL by mouth twice a day SAPHRIS 5 MG SUBL ASENAPINE MALEATE Inactive NIACIN ER 500 MG CR-TABS 4 qHS (for triglycerides) NIACIN ER 500 MG CR-TABS NIACIN Inactive IBUPROFEN 200 MG TABS 1 Q 6 hr. PRN IBUPROFEN 200 MG TABS 513709 IBUPROFEN Inactive FLUTICASONE PROPIONATE 50 MCG/ACT SUSP 2 sprays each nostril qDay x 30 days FLUTICASONE PROPIONATE 50 MCG/ACT SUSP 367570 FLUTICASONE PROPIONATE Inactive EQL TRUETEST TEST STRP Test blood sugar TID EQL TRUETEST TEST STRP GLUCOSE BLOOD Inactive TERESE CONTOUR TEST STRP monitor blood sugars 3x/day TERESE CONTOUR TEST STRP GLUCOSE BLOOD Inactive DETROL LA 4 MG DZ67I-LXQ Take 1 tablet by mouth daily DETROL LA 4 MG EB56J-OFI TOLTERODINE TARTRATE Inactive ZYPREXA 7.5 MG TABS 1 at HS ZYPREXA 7.5 MG TABS 820860 OLANZAPINE Inactive THIOTHIXENE 5 MG CAPS by mouth twice a day THIOTHIXENE 5 MG CAPS 839654 THIOTHIXENE Inactive UROXATRAL 10 MG TJ47V-BYA Take 1 tablet by mouth daily UROXATRAL 10 MG ZH31A-ATG ALFUZOSIN HCL Inactive ACYCLOVIR 400 MG ORAL TABS 1 pill three times daily x 5 days, for cold sore outbreak ACYCLOVIR 400 MG ORAL TABS 957892 ACYCLOVIR Inactive TRUETEST TEST STRP check sugars 4x/day TRUETEST TEST STRP GLUCOSE BLOOD Inactive HUMALOG 100 UNIT/ML SOLN Take 20 units with breakfast, 10u with lunch and suppetr. HUMALOG 100 UNIT/ML SOLN INSULIN LISPRO ( HUMAN) Inactive CYCLOBENZAPRINE HCL 10 MG TABS 1 tablet by mouth three times daily, scheduled CYCLOBENZAPRINE HCL 10 MG TABS 434419 CYCLOBENZAPRINE HCL Inactive ACCU-CHEK ROSA INVITR STRP use strips with device to check blood sugars 3 times daily ACCU-CHEK ROSA INVITR STRP GLUCOSE BLOOD Inactive ACCU-CHEK ROSA UZMA Use device to check blood sugars ACCU-CHEK ROSA UZMA BLOOD GLUCOSE MONITORING SUPPL Inactive FLUVOXAMINE MALEATE 100 MG ORAL TABS Take 1/2 tab at noon FLUVOXAMINE MALEATE 100 MG ORAL TABS 181406 FLUVOXAMINE MALEATE Inactive FLUVOXAMINE MALEATE 100 MG TABS Take one (1) tablet by mouth am, 1/2 at noon FLUVOXAMINE MALEATE 100 MG TABS 033911 FLUVOXAMINE MALEATE Inactive BACTROBAN 2 % CREAM Apply to affected area BID for up to 10 days BACTROBAN 2 % CREAM 530010 MUPIROCIN CALCIUM Inactive NOVOFINE 32G X 6 MM MISC use one four times per day NOVOFINE 32G X 6 MM MISC INSULIN PEN NEEDLE Inactive TRAZODONE HCL 100 MG ORAL TABS 1 tab by mouth for sleep TRAZODONE HCL 100 MG ORAL TABS 121221 TRAZODONE HCL Inactive LOVAZA 1 GM CAPS 4 daily (for triglycerides) LOVAZA 1 GM CAPS 602842 JNDAP-0-DGXH ETHYL ESTERS Inactive METFORMIN HCL ER 500 MG OM65P-IBS Take three tablets by mouth everyday METFORMIN HCL ER 500 MG TB90A-YSQ METFORMIN HCL Inactive METOPROLOL SUCCINATE 100 MG HC20X-ACE 1 by mouth daily for blood pressure METOPROLOL SUCCINATE 100 MG PD90A-MJV METOPROLOL SUCCINATE Inactive AMITIZA 24 MCG ORAL CAPS Take one capsule BID for constipation. AMITIZA 24 MCG ORAL CAPS LUBIPROSTONE Inactive TOLTERODINE TARTRATE 2 MG TABS 1 pill twice daily, for bladder TOLTERODINE TARTRATE 2 MG TABS 327975 TOLTERODINE TARTRATE Inactive CEFDINIR 300 MG CAPS by mouth twice a day CEFDINIR 300 MG CAPS 672571 CEFDINIR Inactive AZITHROMYCIN 500 MG SOLR 1 po q day AZITHROMYCIN 500 MG SOLR 16208044841 AZITHROMYCIN Inactive AMOXICILLIN 500 MG CAPS 2 po BID x 10 days AMOXICILLIN 500 MG CAPS 951857 AMOXICILLIN Inactive PENICILLIN V POTASSIUM 500 MG TABS 1 pill by mouth three times daily PENICILLIN V POTASSIUM 500 MG TABS 365320 PENICILLIN V POTASSIUM Inactive KEFLEX 500 MG CAP 1 po BID x 7 days KEFLEX 500 MG CAP 770401 CEPHALEXIN Inactive Immunizations Vaccine Administration Date Value [...] Fluvirin, Fluarix, Agriflu(>=18 yo)) Fluzone (>3 yrs.) [ACK232] Influenza, seasonal, injectable pneumococcal immunization administered Pneumovax [...] MICROALBUMIN - Chemistry sodium, serum 137 mmol/L 145-834 4359/05/19 potassium, serum 5.2 mmol/L 3.5-5.2 chloride, serum [...] Panel - Chemistry sodium, serum 137 mmol/L 551-448 6851/10/12 potassium, serum 4.8 mmol/L 3.5-5.2 chloride, serum 102 mmol/L 98-107 carbon dioxide, venous blood 27.6 mmol/L 21.0-32.0 blood glucose 168 mg/dL 65-110 calcium, serum 9.0 mg/dL 8.5-10.1 urea nitrogen, blood 15 mg/dL 7-18 creatinine, serum 1.04 mg/dL 0.55-1.30 sodium, serum 138 mmol/L 568-266 8092/11/11 potassium, serum 4.7 mmol/L 3.5-5.2 chloride, serum [...] % 11.6-14.8 platelet count 252 10^3/MM^3 10*3/mm3 553-263 1549/10/12 leukocyte count, blood 5.8 10^3/MM^3 10*3/mm3 4.6-10.2 [...] 240 10^3/MM^3 10*3/mm3 142-424 Lab Report: Chlamydia/GC APTIMA/11429, HIV-1/2 Agn/Dominga/97986, RPR (DX) W ... - Chemistry hepatitis B surface antigen NON-REACTIVE NON-REACTIVE Lab Report: Chlamydia/GC APTIMA/07325, HIV-1/2 Agn/Dominga/15657, RPR (DX) W ... - Lab chlamydia DNA probe NOT DETECTED NOT DETECTED Lab Report: Chlamydia/GC APTIMA/83745, HIV-1/2 Agn/Dominga/58953, RPR (DX) W ... - Microbiology Neisseria gonorrhoeae DNA probe NOT DETECTED NOT DETECTED Lab Report: Chlamydia/GC APTIMA/32472, HIV-1/2 Agn/Dominga/86256, RPR (DX) W ... - Serology rapid plasma reagin antibody titer NON-REACTIVE NON-REACTIVE Lab Report: HGBA1C - Chemistry hemoglobin A1C, blood, as % of total hemoglobin 6.1 % 4.3-6.0 hemoglobin A1C, blood, as % of total hemoglobin 6.3 % 4.3-6.0 Lab Report: Lipid Panel, HEPATIC PANEL, MICROALBUMIN, CBC - Chemistry cholesterol, serum 131 mg/dL 743-705 1153/06/03 aspartate aminotransferase (SGOT), serum 52 U/L 15-37 LDL cholesterol, serum 31 mg/dL 0-130 HDL cholesterol, serum 23 mg/dL 32-96 triglyceride, serum, fasting 383 mg/dL 30-200 alanine aminotransferase (SGPT), serum 112 U/L 12-78 [...] Specific Ag, MICROALBUMIN, Uric Acid - Chemistry cholesterol, serum 142 mg/dL 065-313 3340/06/26 triglyceride, serum, fasting 272 mg/dL 30-200 HDL cholesterol, serum 22 mg/dL 32-96 LDL cholesterol, serum 66 mg/dL 0-130 prostate specific antigen 0.37 ng/mL 0.00-4.00 albumin/creatinine ratio, urine < 30 mg/g mg/g{creat} 0-29 uric acid, serum 4.7 mg/dL 2.6-7.2 Lab Report: Lipid Panel, Prostatic [...] negative Encounters Code Encounter Date Provider Facility CPT-36560 Level 3 Est. Patient 14:39:00 LEAD SLOT TECHNICIAN Vanessa Hickey MD [facility] CPT-30275 Level 2 Est. Patient 18:43:34 CDT Mima Erazo [facility] CPT-99961 Level 3 Est. Patient 16:22:09 CDT Cherelle Avila [facility] CPT-82155 Level 4 Est. Patient 17:55:14 CDT Mima Erazo [facility] CPT-99374 Level 2 Est. Patient 17:13:21 CDT Alina Castaneda MD PhD [facility] CPT-91620 Level 3 Est. Patient 14:46:15 CDT Vanessa Hickey MD [facility] CPT-73988 Level 3 Est. Patient 09:34:56 CDT Alina Castaneda MD [facility]-13397 Level 3 Est. Patient 21:40:19 CDT Mima Erazo [place] [facility]-51402 Level 3 Est. Patient 09:26:40 CDT Marvel Charles [facility] [place]-24671 Level 3 Est. Patient 12:36:43 CDT Vanessa Hickey MD [facility]-50883 Level 3 Est. Patient 12:57:49 CDT Vanessa Hickey MD [facility]-93212 Level 3 Est. Patient 00:28:25 CDT Alina Castaneda MD [facility]76854 Level 2 Est. Patient 12:52:14 CDT Alina Castaneda MD [facility]-40805 Level 3 Est. Patient 11:51:18 LEAD SLOT TECHNICIAN Alina Castaneda MD [facility]-12319 Level 3 Est. Patient 10:09:22 LEAD SLOT TECHNICIAN Alina Castaneda MD [facility]88653 Level 3 Est. Patient 14:36:26 LEAD SLOT TECHNICIAN Marvel Charles [facility]-49564 Level 3 Est. Patient 13:34:47 LEAD SLOT TECHNICIAN Alina Castaneda MD [facility]-08719 Level 3 Est. Patient 19:52:08 LEAD SLOT TECHNICIAN Alina Castaneda MD [facility]-32540 Level 3 Est. Patient 10:01:51 LEAD SLOT TECHNICIAN Marvel Charles [facility]-86675 Level 3 Est. Patient 21:54:06 CDT Vanessa Hickey MD [facility]-61545 Level 3 Est. Patient 08:54:46 CDT Alina Castaneda MD [facility]80579 Level 3 Est. Patient 09:32:11 CDT Marvel Charles [facility]-40908 Level 3 Est. Patient 12:02:49 CDT Alina Castaneda MD [facility]-57945 Level 3 Est. Patient 19:17:33 CDT Alina Castandea MD [facility]-73623 Level 3 Est. Patient 13:19:10 CDT Marvel Charles [facility]-32136 Level 3 Est. Patient 08:20:05 CDT Alina Castaneda MD [facility]-58770 Level 3 Est. Patient 15:17:18 CDT Alina Castaneda MD [facility]-07428 Level 3 Est. Patient 14:25:36 LEAD SLOT TECHNICIAN Marvel Charles [facility]-19171 Level 3 Est. Patient 10:09:15 LEAD SLOT TECHNICIAN [facility] Patient 21:28:43 CDT Alina Castaneda MD [facility]-02426 Level 3 Est. Patient 15:20:11 CDT Marvel Gurdeepajayestela [facility]-44553 Level 4 Est. Patient 19:08:12 CDT Alina Castaneda MD [facility]-10984 Level 3 Est. Patient 15:06:39 CDT Marvel Araceli [facility]-55392 Level 4 Est. Patient 17:48:15 CDT Alina Castaneda MD [facility]-28787 Level 3 Est. Patient 14:53:49 CDT Alnia Castaneda MD [facility]-09727 Level 3 Est. Patient 09:35:16 CDT Alina Castaneda MD [facility]-44158 Level 3 Est. Patient 12:23:22 CDT Alina Castaneda MD [facility]-53173 Level 3 Est. Patient 16:19:15 CDT Alina Castaneda MD [facility]-14043 Level 3 Est. Patient 21:39:56 LEAD SLOT TECHNICIAN Alina Castaneda MD [facility]-74028 Level 4 Est. Patient 14:12:56 LEAD SLOT TECHNICIAN Alina Castnaeda MD [facility] [facility]-72755 Level 2 Est. Patient 15:34:57 LEAD SLOT TECHNICIAN Alina Castaneda MD [facility]-43075 Level 3 Est. Patient 12:17:04 LEAD SLOT TECHNICIAN Alina Castaneda MD [facility]-17586 Level 3 Est. Patient 09:18:18 LEAD SLOT TECHNICIAN [facility]-72459 Level 2 Est. Patient 21:50:24 CDT Alina Castaneda MD [facility]-55945 Level 3 Est. Patient 09:17:28 CDT [facility]-81414 Level 4 Est. Patient 18:54:02 CDT Alina Castaneda MD [facility]-06564 Level 3 Est. Patient 10:47:10 CDT Alina Castaneda MD [facility]87147 Level 3 Est. Patient 09:22:20 CDT [facility]-44112 Level 3 Est. Patient 16:39:43 [facility] 3 Est. Patient 16:05:16 CDT Alina Castaneda MD [facility] CPT-37158 Level 3 Est. Patient 00:29:15 CDT Alina Castaneda MD [facility] CPT-85835 Level 3 Est. Patient 10:49:22 LEAD SLOT TECHNICIAN Marvel Thurstonestela [facility] CPT-57666 Level 3 Est. Patient 21:30:19 LEAD SLOT TECHNICIAN Alina Castaneda MD [facility] CPT-48651 Level 4 Est. Patient 17:04:11 LEAD SLOT TECHNICIAN [place] Gurdeepajayestela [facility] CPT-73989 Level 3 Est. Patient 15:34:11 LEAD SLOT TECHNICIAN [facility] Level 2 Est. Patient 12:51:58 LEAD SLOT TECHNICIAN Alina Castaneda MD [facility] CPT-45197 Level 3 Est. Patient 13:20:01 LEAD SLOT TECHNICIAN Alina Castaneda MD [facility] CPT-19838 Level 3 Est. Patient 09:23:35 CDT Alina Castaneda MD [facility] Procedures Code Procedure Name Date Entry Date Standard Description CPT-04272 Bladder Scan 14:39:01 LEAD SLOT TECHNICIAN CPT-TCMM Transitional Care Mgmt-Moderate 10:30:19 LEAD SLOT TECHNICIAN CPT-68872 Bladder Scan 12:36:44 CDT CPT-75780 Bladder Scan 21:54:06 CDT CPT-G0008 Administration of Influenza Virus Vaccine 13:05:26 CDT CPT-83007 Fluzone Quadrivalent Intramuscular Suspension 0.5 ML 13: 05:26 CDT CPT-45760 Administration single or combination vaccine inc oral 11 :49:51 CDT CPT-40762 Pneumovax 11:49:51 CDT CPT-63872 Ribs unilateral 2V 12:37:22 LEAD SLOT TECHNICIAN CPT-26794 Chest 2V Frontal and Lat 17:15:26 CDT CPT-32789 Abx/Therapy Injection 18:54:02 CDT CPT-J0696 Rocephin 1000 mg (Ceftriaxone) 16:00:32 CDT CPT-36664 Chest 2V Frontal and Lat 15:26:45 CDT CPT-63450 Chest 2V Frontal and Lat 10:23:27 CDT CPT-31577 Venipuncture Draw Fee 10:11:00 CDT CPT-69930 Administration single or combination vaccine inc oral 11 :56:38 CDT CPT-70508 Influenza split virus > age 3 11:56:38 CDT CPT-93371 Venipuncture Draw Fee 08:49:54 LEAD SLOT TECHNICIAN CPT-83138 EKG Trac and Interp 17:54:19 LEAD SLOT TECHNICIAN
--- OUTSIDE RECORDS SUMMARY | 2018-07-02 14:28 | XMS REPORT | Clinical Summary ---
Author Author Admin, TERELL Organization [facility] Informaat Address Unknown Phone Unavailable Allergies, Adverse Reactions, [...] PhD Palpitations UNSPECIFIED TACHYCARDIA 785.0 Resolved Alina Csataneda MD PhD Tachycardia, unspecified ABNORMAL HEART RHYTHMS 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 Erazo ACID PAINTER Benign paroxysmal positional vertigo Vertigo, benign paroxysmal position 386.11 Inactive Mima Erazo ACID PAINTER Benign paroxysmal positional vertigo High-risk sexual behavior V69.2 Active Alina Castaneda MD PhD High-risk sexual behavior Erectile dysfunction 302.72 Active Alina Castaneda MD PhD Psychosexual dysfunction with inhibited sexual excitement Constipation 564.00 Active Alina Castaneda MD PhD Constipation, unspecified Skin lesion 709.9 Active Alina Castaneda MD PhD Unspecified disorder of skin and subcutaneous tissue Malaise and fatigue 780.79 Active Cherelle Speaks ACID PAINTER Other malaise and fatigue Diarrhea 787.91 Active Cherelle Speaks ACID PAINTER Diarrhea PHARYNGITIS 462 Active Cherelle Speaks ACID PAINTER Acute pharyngitis Colitis 558.9 Active Mima Erazo ACID PAINTER Other and unspecified noninfectious gastroenteritis and colitis [...] Patient Instruction EFFEXOR XR 37.5 MG ORAL [id number] Take one by mouth daily VENLAFAXINE HCL 31154663676 Active Mima Vadimum ALBAN Active TRAVATAN Z 0.004 % OPHTH SOLN 1 drop each eye daily TRAVOPROST 39334574796 Active Mima Yokum ACID PAINTER Active FLUVOXAMINE MALEATE 50 MG ORAL TABS 1 tab by mouth daily FLUVOXAMINE MALEATE 00118417229 No Longer Active Mima Vadimum ALBAN Active MORPHINE SULFATE ER 30 MG ORAL CR-TABS Take one capsule BID MORPHINE SULFATE 28123980171 Active Mima Yokum ACID PAINTER Active TRUEPLUS LANCETS 30G MISC 3x a day LANCETS 02269200690 Active Marvel Charles DENTAL HYGIENE ADMINISTRATIVE ASSISTANT Active TRUE METRIX METER W/DEVICE KIT Check blood sugars 3x/day BLOOD GLUCOSE MONITORING SUPPL 69783424207 Active Marvel Mackenzieglari DENTAL HYGIENE ADMINISTRATIVE ASSISTANT Active TRUE METRIX BLOOD GLUCOSE TEST INVITR STRP Check blood sugars 3x/day. GLUCOSE BLOOD 74972053109 Active Marvel Mackenzieglari DENTAL HYGIENE ADMINISTRATIVE ASSISTANT Active VITAMIN D 2000 UNIT ORAL CAPS Take one by mouth daily CHOLECALCIFEROL 59473665188 Active Mima Yokum ACID PAINTER Active LATUDA 60 MG ORAL TABS Take one by mouth daily LURASIDONE HCL 51998197435 No Longer Active Mima Yokum ACID PAINTER Active HUMALOG KWIKPEN 100 UNIT/ML SC SOPN sliding scale if needed INSULIN LISPRO (HUMAN) 14689032365 Active Mima Yokum ACID PAINTER Active TRAZODONE HCL 100 MG TABS 1 every night to prevent headaches TRAZODONE HCL 01018153271 Active Gabrielle Madl BRADDER Active LATUDA 60 MG ORAL TABS 1 tab daily LURASIDONE HCL 85411171653 Active Gabrielle Madl BRADDER Active CLONAZEPAM 1 MG TABS 1 pill by mouth three times daily CLONAZEPAM 34168861389 Active Gabrielle Madl BRADDER Active [facility] MILK OF MAGNESIA 400 MG/5ML ORAL SUSP 30ml by mouth bid prn MAGNESIUM HYDROXIDE 30131181462 Active Mason Loredo MD Active TYLENOL 8 HOUR 650 MG ORAL CR-TABS 1 tab QID prn ACETAMINOPHEN 10791391676 Active Mason Loredo MD Active MYLANTA GAS RELIEF MAXIMUM STR 125 MG ORAL CAPS 30cc every 4 hours prn 12/01 SIMETHICONE 09618472580 Active Mason Loredo MD Active IMODIUM A-D 2 MG ORAL TABS 1 tab QID as needed LOPERAMIDE HCL 60028497111 Active Mason Loredo MD Active TRAVATAN Z 0.004 % SOLN 1 gtt each eye daily TRAVOPROST 79323412198 No Longer Active Mason Loredo MD Active LISINOPRIL 20 MG TABS 1 BID LISINOPRIL 56597024966 No Longer Active Mason Loredo MD Active LEVEMIR FLEXTOUCH 100 UNIT/ML SC SOPN 60 units SQ each evening, for diabetes INSULIN DETEMIR 06478033873 Active Mima Erazo APRN Active ZOLPIDEM TARTRATE 10 MG TABS take at bedtime ZOLPIDEM TARTRATE 61984142195 No Longer Active Mason Loredo MD Active HYDROCODONE-ACETAMINOPHEN 5-325 MG TABS 2 tabs by mouth three times daily for pain HYDROCODONE-ACETAMINOPHEN 87466078694 No Longer Active Mason Loredo MD Active ZOFRAN 4 MG TABS 1 po q4hr PRN Nausea ONDANSETRON HCL 04870271604 No Longer Active Mason Loredo MD Active LOMOTIL 2.5-0.025 MG ORAL TABS take 1-2 tabs PO after each stool, no more than 8 in 24 hours DIPHENOXYLATE-ATROPINE 64433230195 No Longer Active Mason Loredo MD Active COLACE 100 MG CAPS 1 pill by mouth twice daily, for constipation DOCUSATE SODIUM 14805020065 No Longer Active Mima Erazo APRN Active FLONASE ALLERGY RELIEF 50 MCG/ACT NASAL SUSP One spray each nostril BID x 1 week then daily FLUTICASONE PROPIONATE 55517395868 Active Mima Erazo APRN Active BD PEN NEEDLE MINI U/F 31G X 5 MM MISC 4 a day INSULIN PEN NEEDLE 81399460366 Active Marvel MARROQUIN Active AMITIZA 24 MCG ORAL CAPS Take one capsule BID for constipation LUBIPROSTONE 26122834196 Active Mima Erazo APRN Active TRUEPLUS LANCETS 30G MISC 3 a day LANCETS 31474000876 Active Marvel MARROQUIN Active TOLTERODINE TARTRATE 2 MG TABS 1 pill twice daily, for bladder TOLTERODINE TARTRATE 01339317727 No Longer Active Vanessa Hickey MD Active AMITIZA 24 MCG ORAL CAPS Take one capsule BID for constipation. LUBIPROSTONE 97968882098 No Longer Active Vanessa Hickey MD Active FLUVOXAMINE MALEATE 100 MG ORAL TABS take one tab every AM et HS, and take 1/ 2 tab at noon FLUVOXAMINE MALEATE 72837100872 Active Grace Azam RMA Active METOPROLOL SUCCINATE 100 MG SO64F-LMQ 1 by mouth daily for blood pressure METOPROLOL SUCCINATE 48773486237 No Longer Active Grace Azam RMA Active METFORMIN HCL ER 500 MG [id number]-UAE Take three tablets by mouth everyday METFORMIN HCL 65065237469 No Longer Active Grace Azam RMA Active LOVAZA 1 GM CAPS 4 daily (for triglycerides) OMEGA-3- ACID ETHYL ESTERS 64905039897 No Longer Active Grace Azam RMA Active TRAZODONE HCL 100 MG ORAL TABS 1 tab by mouth for sleep TRAZODONE HCL 72777216680 No Longer Active Grace Azam RMA Active NOVOFINE 32G X 6 MM MISC use one four times per day INSULIN PEN NEEDLE 56823088129 No Longer Active Grace Azam RMA Active BACTROBAN 2 % CREAM Apply to affected area BID for up to 10 days MUPIROCIN CALCIUM 21755840415 No Longer Active Grace Azam RMA Active KEFLEX 500 MG CAP 1 po BID x 7 days CEPHALEXIN 20838177183 No Longer Active Cherelle Avila APRN Active FLUVOXAMINE MALEATE 100 MG TABS Take one (1) tablet by mouth am, 1/2 at noon FLUVOXAMINE MALEATE 75195408918 No Longer Active Mimacecily Erazo ACID PAINTER Active CORICIDIN HBP CONGESTION/COUGH 10-200 MG ORAL CAPS Take as directed on box as needed for cold/flu symptoms DEXTROMETHORPHAN-GUAIFENESIN 52764558771 Active Cherelle Speaks ACID PAINTER Active OMEGA-3 300 MG ORAL CAPS 4 caps by mouth daily OMEGA-3 FATTY ACIDS 65871269830 Active Mima Yokum ACID PAINTER Active FLUVOXAMINE MALEATE 100 MG ORAL TABS Take 1/2 tab at noon FLUVOXAMINE MALEATE 10645367700 No Longer Active Cherelle Avila APRN Active [facility] LUBRICANT EYE DROPS 0.4-0.3 % OPHTH SOLN POLYETHYL GLYCOL-PROPYL GLYCOL 86980669042 Active Mima Erazo APRN Active MIRALAX POWD 17g by mouth daily, for constipation POLYETHYLENE GLYCOL 3350 46603607854 Active Mima Erazo APRN Active TRUETEST TEST STRP check blood sugars 3x/day GLUCOSE BLOOD 23697676860 Active Maliheh Ziglari DENTAL HYGIENE ADMINISTRATIVE ASSISTANT Active ACCU-CHEK ROSA UZMA Use device to check blood sugars BLOOD GLUCOSE MONITORING SUPPL 16071376654 No Longer Active Maliheh Ziglari DENTAL HYGIENE ADMINISTRATIVE ASSISTANT Active ACCU-CHEK ROSA INVITR STRP use strips with device to check blood sugars 3 times daily GLUCOSE BLOOD 31619001044 No Longer Active Mallashondaeh Ziglari DENTAL HYGIENE ADMINISTRATIVE ASSISTANT Active VERAPAMIL HCL ER 180 MG ORAL CR-TABS 1 pill by mouth twice daily, for migraine prevention VERAPAMIL HCL 88628764201 Active Mima Erazo APRN Active CYCLOBENZAPRINE HCL 10 MG TABS 1 tablet by mouth three times daily, scheduled CYCLOBENZAPRINE HCL 13020168590 No Longer Active Alina Castaneda MD PhD Active HUMALOG 100 UNIT/ML SOLN Take 20 units with breakfast, 10u with lunch and suppetr. INSULIN LISPRO (HUMAN) 89047428569 No Longer Active Alina Castaneda MD PhD Active TRUETEST TEST STRP check sugars 4x/day GLUCOSE BLOOD 40507772414 No Longer Active Alina Castaneda MD PhD Active MORPHINE SULFATE 30 MG TABS 1 pill by mouth twice daily, for pain MORPHINE SULFATE 67842596799 No Longer Active Mason Loredo MD Active ACYCLOVIR 400 MG ORAL TABS 1 pill three times daily x 5 days, for cold sore outbreak ACYCLOVIR 04658059638 No Longer Active Alina Castaneda MD PhD Active PENICILLIN V POTASSIUM 500 MG TABS 1 pill by mouth three times daily PENICILLIN V POTASSIUM 71826232025 No Longer Active Alina Castaneda MD PhD Active UROXATRAL 10 MG [id number]-ZYH Take 1 tablet by mouth daily ALFUZOSIN HCL 35001287263 No Longer Active Alina Castaneda MD PhD Active THIOTHIXENE 5 MG CAPS by mouth twice a day THIOTHIXENE 17443777173 No Longer Active Alina Castaneda MD PhD Active ZYPREXA 7.5 MG TABS 1 at HS OLANZAPINE 17574422416 No Longer Active Alina Castaneda MD PhD Active BD INSULIN SYRINGE 28G X 1/2" 1 ML MISC 1 four times per day INSULIN SYRINGE-NEEDLE U-100 31291233358 Active Marvel Charles [facility] Active DETROL LA 4 MG [id number]-FTZ Take 1 tablet by mouth daily TOLTERODINE TARTRATE 34899642615 No Longer Active Alina Castaneda MD PhD Active TERESE CONTOUR TEST STRP monitor blood sugars 3x/day GLUCOSE BLOOD 14581183780 No Longer Active Alina Castaneda MD PhD Active EQL TRUETEST TEST STRP Test blood sugar TID GLUCOSE BLOOD 35071046943 No Longer Active Alina Castaneda MD PhD Active FLUTICASONE PROPIONATE 50 MCG/ACT SUSP 2 sprays each nostril qDay x 30 days FLUTICASONE PROPIONATE 80610986210 No Longer Active Alina Castaneda MD PhD Active IBUPROFEN 200 MG TABS 1 Q 6 hr. PRN IBUPROFEN 68589198159 No Longer Active Alina Castaneda MD PhD Active NIACIN ER 500 MG CR-TABS 4 qHS (for triglycerides) NIACIN 15059094891 No Longer Active Alina Castaneda MD PhD Active ALFUZOSIN HCL ER 10 MG [id number]-MVH 1 tablet daily ALFUZOSIN HCL 76260400497 Active Mima Erazo ACID PAINTER Active SAPHRIS 5 MG SUBL by mouth twice a day ASENAPINE MALEATE 85082499311 No Longer Active Marvel Thurstonari DENTAL HYGIENE ADMINISTRATIVE ASSISTANT Active ACETAMINOPHEN 500 MG TABS 2 Q 6 hr. PRN ACETAMINOPHEN 40448511734 No Longer Active Mallashondaeh Ziglari DENTAL HYGIENE ADMINISTRATIVE ASSISTANT Active ORPHENADRINE CITRATE ER 100 MG [id number] 1 every 12 hr. as needed ORPHENADRINE CITRATE 79295963309 No Longer Active Alina Castaneda MD PhD Active NIACIN CR 500 MG CR-TABS 2 qHS NIACIN 88328218648 No Longer Active Alina Castaneda MD PhD Active AMOXICILLIN 500 MG CAPS 2 po BID x 10 days AMOXICILLIN 00263868360 No Longer Active Alina Castaneda MD PhD Active HYDROCODONE-ACETAMINOPHEN 7.5-325 MG TABS 1 four times a day as needed for pain HYDROCODONE-ACETAMINOPHEN 59508168614 No Longer Active Alina Castaneda MD PhD Active DOXEPIN HCL 10 MG CAPS Take 1 tablet by mouth daily DOXEPIN HCL 50591712425 No Longer Active Salina Han COUNTS INCLUDE 234 BEDS AT [facility] Active NAVANE 10 MG CAPS 1/2 tablet twice a day THIOTHIXENE No Longer Active Salina Han COUNTS INCLUDE 234 BEDS AT [facility] Active CYCLOBENZAPRINE HCL 10 MG TABS 1/2 tablet by mouth every 8 hours as needed for muscle spasms CYCLOBENZAPRINE HCL 97567112057 No Longer Active Alina Castaneda MD PhD Active BACTROBAN 2 % CREAM apply to ear and nose twice daily MUPIROCIN CALCIUM 73714156230 No Longer Active Alina Castaneda MD PhD Active HYDROCODONE-ACETAMINOPHEN 5-325 MG TABS take one tablet by mouth every four hours as needed for pain HYDROCODONE-ACETAMINOPHEN 07952165571 No Longer Active Alina Castaneda MD PhD Active ZYPREXA 5 MG TABS take one tablet by mouth every evening OLANZAPINE 06106567325 No Longer Active Alina Castaneda MD PhD Active ALBUTEROL SULFATE 0.083 % NEBU SOLN one vial per nebulizer TID and PRN cough/ soa ALBUTEROL SULFATE 53155384770 No Longer Active Alina Castaneda MD PhD Active GUAIFENESIN 600 MG [id number]-UFM 1 tablet by mouth twice daily if needed for cough GUAIFENESIN 52485406143 No Longer Active Marvel MARROQUIN Active AZITHROMYCIN 500 MG SOLR 1 po q day AZITHROMYCIN 15638357288 No Longer Active Alina Castaneda MD PhD Active PROMETHAZINE-CODEINE 6.25-10 MG/5ML SYRP 1 tsp po q 6 hours prn cough PROMETHAZINE-CODEINE 67323861958 No Longer Active Alina Castaneda MD PhD Active CEFDINIR 300 MG CAPS by mouth twice a day CEFDINIR 05121604973 No Longer Active Alina Castaneda MD PhD Active METFORMIN HCL 500 MG OS59J-FIW Take 3 tablets by mouth everyday METFORMIN HCL 43393825820 No Longer Active Alina Castaneda MD PhD Active LEVEMIR 100 UNIT/ML SOLN 90 units SQ qHS INSULIN DETEMIR 12698822930 No Longer Active Marvel MARROQUIN Active TOPROL XL 100 MG [id number] 1 @ HS METOPROLOL SUCCINATE 41459162304 No Longer Active Marvel MARROQUIN Active ALLOPURINOL 300 MG TABS Take one by mouth daily ALLOPURINOL 15161835512 Active Mima Yokum ACID PAINTER Active ZYPREXA 10 MG TABS Take one by mouth daily OLANZAPINE 79350104314 No Longer Active Alina Castaneda MD PhD Active NOVOLOG 100 UNIT/ML SOLN 40 units with every meal INSULIN ASPART 82968669927 No Longer Active Alina Castaneda MD PhD Active VERAPAMIL HCL CR 120 MG TAB CR 1 qPM VERAPAMIL HCL 31161146334 No Longer Active Salina Han RMA Active ZYPREXA 15 MG TABS Take 1 tablet by mouth daily OLANZAPINE 79896841235 No Longer Active Marvel MARROQUIN Active ALBUTEROL SULFATE (2.5 MG/3ML) 0.083% NEBU 1 neb tid and prn cough ALBUTEROL SULFATE 50803395438 No Longer Active Alina Castaneda MD PhD Active LANTUS 100 UNIT/ML SOLN 60 units sq q hs INSULIN GLARGINE 39559573277 No Longer Active Alina Mendez, A Active ALBUTEROL SULFATE (2.5 MG/3ML) 0.083% NEBU 1 neb tid and prn cough ALBUTEROL SULFATE (2.5 MG/3ML) 0.083% NEBU 872797 ALBUTEROL SULFATE Inactive ZYPREXA 15 MG TABS Take 1 tablet by mouth daily ZYPREXA 15 MG TABS 719416 OLANZAPINE Inactive VERAPAMIL HCL CR 120 MG TAB CR 1 qPM VERAPAMIL HCL CR 120 MG TAB CR VERAPAMIL HCL Inactive ZYPREXA 10 MG TABS Take one by mouth daily ZYPREXA 10 MG TABS 850325 OLANZAPINE Inactive TOPROL XL 100 MG [id number] 1 @ HS TOPROL XL 100 MG MB21I-VNS METOPROLOL SUCCINATE Inactive LEVEMIR 100 UNIT/ML SOLN 90 units SQ qHS LEVEMIR 100 UNIT/ML SOLN INSULIN DETEMIR Inactive PROMETHAZINE-CODEINE 6.25-10 MG/5ML SYRP 1 tsp po q 6 hours prn cough PROMETHAZINE-CODEINE 6.25-10 MG/5ML SYRP 795381 PROMETHAZINE- CODEINE Inactive GUAIFENESIN 600 MG MY10A-OCA 1 tablet by mouth twice daily if needed for cough GUAIFENESIN 600 MG SL82S-XNR GUAIFENESIN Inactive ALBUTEROL SULFATE 0.083 % NEBU SOLN one vial per nebulizer TID and PRN cough/ soa ALBUTEROL SULFATE 0.083 % NEBU SOLN 496105 ALBUTEROL SULFATE Inactive ZYPREXA 5 MG TABS take one tablet by mouth every evening ZYPREXA 5 MG TABS 831490 OLANZAPINE Inactive HYDROCODONE-ACETAMINOPHEN 5-325 MG TABS take one tablet by mouth every four hours as needed for pain HYDROCODONE-ACETAMINOPHEN 5-325 MG TABS 629327 HYDROCODONE-ACETAMINOPHEN Inactive BACTROBAN 2 % CREAM apply to ear and nose twice daily BACTROBAN 2 % CREAM 348665 MUPIROCIN CALCIUM Inactive CYCLOBENZAPRINE HCL 10 MG TABS 1/2 tablet by mouth every 8 hours as needed for muscle spasms CYCLOBENZAPRINE HCL 10 MG TABS 009328 CYCLOBENZAPRINE HCL Inactive NAVANE 10 MG CAPS 1/2 tablet twice a day NAVANE 10 MG CAPS THIOTHIXENE Inactive DOXEPIN HCL 10 MG CAPS Take 1 tablet by mouth daily DOXEPIN HCL 10 MG CAPS 9115165 DOXEPIN HCL Inactive HYDROCODONE-ACETAMINOPHEN 7.5-325 MG TABS 1 four times a day as needed for pain HYDROCODONE-ACETAMINOPHEN 7.5-325 MG TABS 070190 HYDROCODONE-ACETAMINOPHEN Inactive NIACIN CR 500 MG CR-TABS 2 qHS NIACIN CR 500 MG CR- TABS NIACIN Inactive ORPHENADRINE CITRATE ER 100 MG DQ32M-PEW 1 every 12 hr. as needed ORPHENADRINE CITRATE ER 100 MG [id number]-ZDJ ORPHENADRINE CITRATE Inactive ACETAMINOPHEN 500 MG TABS 2 Q 6 hr. PRN ACETAMINOPHEN 500 MG TABS 995757 ACETAMINOPHEN Inactive SAPHRIS 5 MG SUBL by mouth twice a day SAPHRIS 5 MG SUBL ASENAPINE MALEATE Inactive NIACIN ER 500 MG CR-TABS 4 qHS (for triglycerides) NIACIN ER 500 MG CR-TABS NIACIN Inactive IBUPROFEN 200 MG TABS 1 Q 6 hr. PRN IBUPROFEN 200 MG TABS 440031 IBUPROFEN Inactive FLUTICASONE PROPIONATE 50 MCG/ACT SUSP 2 sprays each nostril qDay x 30 days FLUTICASONE PROPIONATE 50 MCG/ACT SUSP 5640359 FLUTICASONE PROPIONATE Inactive EQL TRUETEST TEST STRP Test blood sugar TID EQL TRUETEST TEST STRP GLUCOSE BLOOD Inactive TERESE CONTOUR TEST STRP monitor blood sugars 3x/day TERESE CONTOUR TEST STRP GLUCOSE BLOOD Inactive DETROL LA 4 MG [id number]-BAL Take 1 tablet by mouth daily DETROL LA 4 MG [id number] TOLTERODINE TARTRATE Inactive ZYPREXA 7.5 MG TABS 1 at HS ZYPREXA 7.5 MG TABS 310336 OLANZAPINE Inactive THIOTHIXENE 5 MG CAPS by mouth twice a day THIOTHIXENE 5 MG CAPS 278976 THIOTHIXENE Inactive UROXATRAL 10 MG BQ68P-RRG Take 1 tablet by mouth daily UROXATRAL 10 MG XQ37P-ZLI ALFUZOSIN HCL Inactive ACYCLOVIR 400 MG ORAL TABS 1 pill three times daily x 5 days, for cold sore outbreak ACYCLOVIR 400 MG ORAL TABS 741152 ACYCLOVIR Inactive TRUETEST TEST STRP check sugars 4x/day TRUETEST TEST STRP GLUCOSE BLOOD Inactive HUMALOG 100 UNIT/ML SOLN Take 20 units with breakfast, 10u with lunch and suppetr. HUMALOG 100 UNIT/ML SOLN INSULIN LISPRO ( HUMAN) Inactive CYCLOBENZAPRINE HCL 10 MG TABS 1 tablet by mouth three times daily, scheduled CYCLOBENZAPRINE HCL 10 MG TABS 988618 CYCLOBENZAPRINE HCL Inactive ACCU-CHEK ROSA INVITR STRP use strips with device to check blood sugars 3 times daily ACCU-CHEK ROSA INVITR STRP GLUCOSE BLOOD Inactive ACCU-CHEK ROSA UZMA Use device to check blood sugars ACCU-CHEK ROSA UZMA BLOOD GLUCOSE MONITORING SUPPL Inactive FLUVOXAMINE MALEATE 100 MG ORAL TABS Take 1/2 tab at noon FLUVOXAMINE MALEATE 100 MG ORAL TABS 054522 FLUVOXAMINE MALEATE Inactive FLUVOXAMINE MALEATE 100 MG TABS Take one (1) tablet by mouth am, / at noon FLUVOXAMINE MALEATE 100 MG TABS 819962 FLUVOXAMINE MALEATE Inactive BACTROBAN 2 % CREAM Apply to affected area BID for up to 10 days BACTROBAN 2 % CREAM 989438 MUPIROCIN CALCIUM Inactive NOVOFINE 32G X 6 MM MISC use one four times per day NOVOFINE 32G X 6 MM MISC INSULIN PEN NEEDLE Inactive TRAZODONE HCL 100 MG ORAL TABS 1 tab by mouth for sleep TRAZODONE HCL 100 MG ORAL TABS 090038 TRAZODONE HCL Inactive LOVAZA 1 GM CAPS 4 daily (for triglycerides) LOVAZA 1 GM CAPS 239456 SONTJ-3-CBMT ETHYL ESTERS Inactive METFORMIN HCL ER 500 MG WM24F-DNI Take three tablets by mouth everyday METFORMIN HCL ER 500 MG LZ05D-OQD METFORMIN HCL Inactive METOPROLOL SUCCINATE 100 MG QY38F-QQX 1 by mouth daily for blood pressure METOPROLOL SUCCINATE 100 MG HD51E-CPT METOPROLOL SUCCINATE Inactive AMITIZA 24 MCG ORAL CAPS Take one capsule BID for constipation. AMITIZA 24 MCG ORAL CAPS LUBIPROSTONE Inactive TOLTERODINE TARTRATE 2 MG TABS 1 pill twice daily, for bladder TOLTERODINE TARTRATE 2 MG TABS 188757 TOLTERODINE TARTRATE Inactive COLACE 100 MG CAPS 1 pill by mouth twice daily, for constipation COLACE 100 MG CAPS 8641421 DOCUSATE SODIUM Inactive LOMOTIL 2.5-0.025 MG ORAL TABS take 1-2 tabs PO after each stool, no more than 8 in 24 hours LOMOTIL 2.5-0.025 MG ORAL TABS 8836549 DIPHENOXYLATE-ATROPINE Inactive ZOFRAN 4 MG TABS 1 po q4hr PRN Nausea ZOFRAN 4 MG TABS 605842 ONDANSETRON HCL Inactive HYDROCODONE-ACETAMINOPHEN 5-325 MG TABS 2 tabs by mouth three times daily for pain HYDROCODONE-ACETAMINOPHEN 5-325 MG TABS 290364 HYDROCODONE-ACETAMINOPHEN Inactive ZOLPIDEM TARTRATE 10 MG TABS take at bedtime ZOLPIDEM TARTRATE 10 MG TABS 629871 ZOLPIDEM TARTRATE Inactive LISINOPRIL 20 MG TABS 1 BID LISINOPRIL 20 MG TABS 993921 LISINOPRIL Inactive TRAVATAN Z 0.004 % SOLN 1 gtt each eye daily TRAVATAN Z 0.004 % SOLN TRAVOPROST Inactive LATUDA 60 MG ORAL TABS Take one by mouth daily LATUDA 60 MG ORAL TABS LURASIDONE HCL Inactive FLUVOXAMINE MALEATE 50 MG ORAL TABS 1 tab by mouth daily FLUVOXAMINE MALEATE 50 MG ORAL TABS 222703 FLUVOXAMINE MALEATE Inactive CEFDINIR 300 MG CAPS by mouth twice a day CEFDINIR 300 MG CAPS 190979 CEFDINIR Inactive AZITHROMYCIN 500 MG SOLR 1 po q day AZITHROMYCIN 500 MG SOLR 48269041864 AZITHROMYCIN Inactive AMOXICILLIN 500 MG CAPS 2 po BID x 10 days AMOXICILLIN 500 MG CAPS 899179 AMOXICILLIN Inactive PENICILLIN V POTASSIUM 500 MG TABS 1 pill by mouth three times daily PENICILLIN V POTASSIUM 500 MG TABS 473168 PENICILLIN V POTASSIUM Inactive KEFLEX 500 MG CAP 1 po BID x 7 days KEFLEX 500 MG CAP 434536 CEPHALEXIN Inactive Immunizations Vaccine Administration Date Value [...] Fluvirin, Fluarix, Agriflu(>=18 yo)) Fluzone (>3 yrs.) [[id number]] Influenza, seasonal, injectable pneumococcal immunization administered Pneumovax [...] HGBA1C - Chemistry sodium, serum 140 mmol/L 689-623 8600/11/09 potassium, serum 4.0 mmol/L 3.5-5.2 chloride, serum [...] Acid - Chemistry cholesterol, serum 187 mg/dL 685-621 5118/06/14 triglyceride, serum, fasting 246 mg/dL 30-200 HDL [...] negative Encounters Code Encounter Date Provider Facility CPT-36790 Level 3 Est. Patient 09:12:14 ASSISTANT DIRECTOR OF ADMISSIONS Mima Yoliudmila [facility] CPT-36828 Level 3 Est. Patient 16:52:51 CDT Vanessa Hickey MD [facility]-77781 Level 3 Est. Patient 17:40:16 CDT Mima Erazo [facility] CPT-50553 Level 3 Est. Patient 14:34:52 CDT Vanessa Hickey MD [facility]-90146 Level 3 Est. Patient 16:27:51 CDT Mima Erazo [facility] CPT-02797 Level 3 Est. Patient 14:39:00 ASSISTANT DIRECTOR OF ADMISSIONS Vanessa Hickey MD [facility]-94591 Level 2 Est. Patient 18:43:34 CDT Mima Erazo [facility] CPT-40307 Level 3 Est. Patient 16:22:09 CDT Cherelle Avila [facility] CPT-94268 Level 4 Est. Patient 17:55:14 CDT Mima Erazo [facility] CPT-05250 Level 2 Est. Patient 17:13:21 CDT Alina Castaneda MD [facility] CPT-51030 Level 3 Est. Patient 14:46:15 CDT Vanessa Hickey MD [facility]-53248 Level 3 Est. Patient 09:34:56 CDT Alina Castaneda MD [facility]-87319 Level 3 Est. Patient 21:40:19 CDT Mima Jeffliudmila [facility] CPT-09189 Level 3 Est. Patient 09:26:40 CDT Marvel Charles [facility] CPT-16952 Level 3 Est. Patient 12:36:43 CDT Vanessa Hickey MD [facility]-26029 Level 3 Est. Patient 12:57:49 CDT Vanessa Hickey MD [facility]-86666 Level 3 Est. Patient 00:28:25 CDT Alina Castaneda MD [facility]51714 Level 2 Est. Patient 12:52:14 CDT Alina Castaneda MD [facility]23283 Level 3 Est. Patient 11:51:18 ASSISTANT DIRECTOR OF ADMISSIONS Alina Castaneda MD [facility]-14389 Level 3 Est. Patient 10:09:22 ASSISTANT DIRECTOR OF ADMISSIONS Alina Castaneda MD [facility]23297 Level 3 Est. Patient 14:36:26 ASSISTANT DIRECTOR OF ADMISSIONS Marvel Charles [facility]33071 Level 3 Est. Patient 13:34:47 ASSISTANT DIRECTOR OF ADMISSIONS Alina Castaneda MD [facility]89213 Level 3 Est. Patient 19:52:08 ASSISTANT DIRECTOR OF ADMISSIONS Alina Castaneda MD [facility]53114 Level 3 Est. Patient 10:01:51 ASSISTANT DIRECTOR OF ADMISSIONS Marvel Charles [facility]97340 Level 3 Est. Patient 21:54:06 CDT Vanessa Hickey MD [facility]-42932 Level 3 Est. Patient 08:54:46 CDT Alina Castaneda MD [facility]57727 Level 3 Est. Patient 09:32:11 CDT Marvel Charles [facility]05959 Level 3 Est. Patient 12:02:49 CDT Alina Castaneda MD [facility]27574 Level 3 Est. Patient 19:17:33 CDT Alina Castaneda MD [facility]19630 Level 3 Est. Patient 13:19:10 CDT Marvel Charles [facility]-27988 Level 3 Est. Patient 08:20:05 CDT Alina Castaneda MD [facility]30382 Level 3 Est. Patient 15:17:18 CDT Alina Castaneda MD [facility]06227 Level 3 Est. Patient 14:25:36 ASSISTANT DIRECTOR OF ADMISSIONS [facility]-28277 Level 3 Est. Patient 10:09:15 ASSISTANT DIRECTOR OF ADMISSIONS [place] [facility]-02336 Level 3 Est. Patient 21:28:43 CDT Alina Castaneda MD [facility]14315 Level 3 Est. Patient 15:20:11 [facility] Level 4 Est[facility] Patient 19:08:12 CDT Alina Castaneda MD [facility]-65664 Level 3 Est. Patient 15:06:39 CDT [facility]-32613 Level 4 Est. Patient 17:48:15 CDT Alina Castaneda MD [facility]-97876 Level 3 Est. Patient 14:53:49 CDT Alina Castaneda MD [facility]-05798 Level 3 Est. Patient 09:35:16 CDT Alina Castaneda MD [facility]-95110 Level 3 Est. Patient 12:23:22 CDT Alina Castaneda MD [facility]86520 Level 3 Est. Patient 16:19:15 CDT Alina Castaneda MD [facility]36184 Level 3 Est. Patient 21:39:56 ASSISTANT DIRECTOR OF ADMISSIONS Alina Castaneda MD [facility]-16990 Level 4 Est. Patient 14:12:56 ASSISTANT DIRECTOR OF ADMISSIONS Alina Castaneda MD [facility]-64477 Level 2 Est. Patient 15:34:57 ASSISTANT DIRECTOR OF ADMISSIONS Alina Castaneda MD [facility]-55488 Level 3 Est. Patient 12:17:04 ASSISTANT DIRECTOR OF ADMISSIONS Alina Castaneda MD [facility]08135 Level 3 Est. Patient 09:18:18 ASSISTANT DIRECTOR OF ADMISSIONS [facility]-60021 Level 2 Est. Patient 21:50:24 CDT Alina Castaneda MD [facility]97302 Level 3 Est. Patient 09:17:28 CDT [facility]-71394 Level 4 Est. Patient 18:54:02 CDT Alina Castaneda MD [facility]-59864 Level 3 Est. Patient 10:47:10 CDT Alina Castaneda MD [facility]-86107 Level 3 Est. Patient 09:22:20 CDT [facility]-74635 Level 3 Est. Patient 16:39:43 CDT [facility]-31355 Level 3 Est. Patient 16:05:16 CDT lAina Castaneda MD [facility]-73595 Level 3 Est. Patient 00:29:15 CDT Alina Castaneda MD [facility]85580 Level 3 Est. Patient 10:49:22 ASSISTANT DIRECTOR OF ADMISSIONS [facility]-69819 Level 3 Est. Patient 21:30:19 ASSISTANT DIRECTOR OF ADMISSIONS Alina Castaneda MD PhD [facility] CPT-31769 Level 4 Est. Patient 17:04:11 ASSISTANT DIRECTOR OF ADMISSIONS Marvel Charles [facility] CPT-87358 Level 3 Est. Patient 15:34:11 ASSISTANT DIRECTOR OF ADMISSIONS [place] [facility] CPT-07445 Level 2 Est. Patient 12:51:58 ASSISTANT DIRECTOR OF ADMISSIONS Alina Castaneda MD [facility] CPT-29216 Level 3 Est. Patient 13:20:01 ASSISTANT DIRECTOR OF ADMISSIONS Alina Castaneda MD PhD [facility] CPT-59454 Level 3 Est. Patient 09:23:35 CDT Alina Castaneda MD [facility] Procedures Code Procedure Name Date Entry Date Standard Description CPT-25549 HGBA1C - LAB USE ONLY 09:30:27 ASSISTANT DIRECTOR OF ADMISSIONS CPT-44788 BMP - LAB USE ONLY 09:30:27 ASSISTANT DIRECTOR OF ADMISSIONS CPT-15743 Venipuncture Draw Fee 09:30:26 ASSISTANT DIRECTOR OF ADMISSIONS CPT-TCMM Transitional Care Mgmt-Moderate 10:25:31 CDT CPT-43521 Bladder Scan 14:34:53 CDT CPT-52474 Bladder Scan 14:39:01 ASSISTANT DIRECTOR OF ADMISSIONS CPT-TCMM Transitional Care Mgmt-Moderate 10:30:19 ASSISTANT DIRECTOR OF ADMISSIONS CPT-30251 Bladder Scan 12:36:44 CDT CPT-71104 Bladder Scan 21:54:06 CDT CPT-G0008 Administration of Influenza Virus Vaccine 13:05:26 CDT CPT-73957 Fluzone Quadrivalent Intramuscular Suspension 0.5 ML 13: 05:26 CDT CPT-74095 Administration single or combination vaccine inc oral 11 :49:51 CDT CPT-52035 Pneumovax 11:49:51 CDT CPT-27974 Ribs unilateral 2V 12:37:22 ASSISTANT DIRECTOR OF ADMISSIONS CPT-52346 Chest 2V Frontal and Lat 17:15:26 CDT CPT-42086 Abx/Therapy Injection 18:54:02 CDT CPT-J0696 Rocephin 1000 mg (Ceftriaxone) 16:00:32 CDT CPT-22769 Chest 2V Frontal and Lat 15:26:45 CDT CPT-39860 Chest 2V Frontal and Lat 10:23:27 CDT CPT-38937 Venipuncture Draw Fee 10:11:00 CDT CPT-75382 Administration single or combination vaccine inc oral 11 :56:38 CDT CPT-04291 Influenza split virus > age 3 11:56:38 CDT CPT-47450 Venipuncture Draw Fee 08:49:54 ASSISTANT DIRECTOR OF ADMISSIONS CPT-77019 EKG Trac and Interp 17:54:19 ASSISTANT DIRECTOR OF ADMISSIONS
--- OUTSIDE RECORDS SUMMARY | 2018-07-02 14:30 | XMS REPORT | Clinical Summary ---
Author Author Admin, TERELL Organization [facility] Address Unknown Phone Unavailable Allergies, Adverse Reactions, 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 Erazo WARDROBE ATTENDANT Benign paroxysmal positional vertigo Vertigo, benign paroxysmal position 386.11 Inactive Mima Erazo WARDROBE ATTENDANT Benign paroxysmal positional vertigo High-risk sexual behavior V69.2 Active Alina Castaneda MD PhD High-risk sexual behavior Erectile dysfunction 302.72 Active Alina Castaneda MD PhD Psychosexual dysfunction with inhibited sexual excitement Constipation 564.00 Active Alina Castaneda MD PhD Constipation, unspecified Skin lesion 709.9 Active Alina Castaneda MD PhD Unspecified disorder of skin and subcutaneous tissue Malaise and fatigue 780.79 Active Cherelle Speaks WARDROBE ATTENDANT Other malaise and fatigue Diarrhea 787.91 Active Cherelle Speaks WARDROBE ATTENDANT Diarrhea PHARYNGITIS 462 Active Cherelle Speaks WARDROBE ATTENDANT Acute pharyngitis Colitis 558.9 Active Mima Erazo WARDROBE ATTENDANT Other and unspecified noninfectious gastroenteritis and colitis [...] CAPS Take one by mouth daily CHOLECALCIFEROL 96813564909 Active Mima Yokum WARDROBE ATTENDANT Active LATUDA 60 MG ORAL TABS Take one by mouth daily LURASIDONE HCL 71677218966 No Longer Active Mima Yokum WARDROBE ATTENDANT Active HUMALOG KWIKPEN 100 UNIT/ML SC SOPN sliding scale if needed INSULIN LISPRO (HUMAN) 06160526831 Active Mima Yokum WARDROBE ATTENDANT Active MORPHINE SULFATE 30 MG ORAL TABS by mouth twice a day MORPHINE SULFATE 19164972713 Active Salina Han [facility] Active TRAZODONE HCL 100 MG TABS 1 every night to prevent headaches TRAZODONE HCL 01006636791 Active Gabrielle Madl CABLE SUPERVISOR Active LATUDA 60 MG ORAL TABS 1 tab daily LURASIDONE HCL 86641059093 Active Gabrielle Madl CABLE SUPERVISOR Active CLONAZEPAM 1 MG TABS 1 pill by mouth three times daily CLONAZEPAM 45288636035 Active Gabrielle Madl CABLE SUPERVISOR Active [facility] MILK OF MAGNESIA 400 MG/5ML ORAL SUSP 30ml by mouth bid prn MAGNESIUM HYDROXIDE 74887835018 Active Mason Loredo MD Active TYLENOL 8 HOUR 650 MG ORAL CR-TABS 1 tab QID prn ACETAMINOPHEN 89537036433 Active Mason Loredo MD Active MYLANTA GAS RELIEF MAXIMUM STR 125 MG ORAL CAPS 30cc every 4 hours prn 12/01 SIMETHICONE 78642256148 Active Mason Loredo MD Active IMODIUM A-D 2 MG ORAL TABS 1 tab QID as needed LOPERAMIDE HCL 04921801877 Active Mason Loredo MD Active FLUVOXAMINE MALEATE 50 MG ORAL TABS 1 tab by mouth daily FLUVOXAMINE MALEATE 51885961358 Active Mason Loredo MD Active TRAVATAN Z 0.004 % SOLN 1 gtt each eye daily TRAVOPROST 73648799018 No Longer Active Mason Loredo MD Active LISINOPRIL 20 MG TABS 1 BID LISINOPRIL 33594517303 No Longer Active Mason Loredo MD Active LEVEMIR FLEXTOUCH 100 UNIT/ML SC SOPN 60 units SQ each evening, for diabetes INSULIN DETEMIR 96568092236 Active Desi Nicholson Active ZOLPIDEM TARTRATE 10 MG TABS take at bedtime ZOLPIDEM TARTRATE 69046539157 No Longer Active Mason Loredo MD Active HYDROCODONE-ACETAMINOPHEN 5-325 MG TABS 2 tabs by mouth three times daily for pain HYDROCODONE-ACETAMINOPHEN 08201744531 No Longer Active Mason Loredo MD Active ZOFRAN 4 MG TABS 1 po q4hr PRN Nausea ONDANSETRON HCL 56195977095 No Longer Active Mason Loredo MD Active LOMOTIL 2.5-0.025 MG ORAL TABS take 1-2 tabs PO after each stool, no more than 8 in 24 hours DIPHENOXYLATE-ATROPINE 56371076571 No Longer Active Mason Loredo MD Active COLACE 100 MG CAPS 1 pill by mouth twice daily, for constipation DOCUSATE SODIUM 61319466391 No Longer Active Mima Kacey [place] Active FLONASE ALLERGY RELIEF 50 MCG/ACT NASAL SUSP One spray each nostril BID x 1 week then daily FLUTICASONE PROPIONATE 64708623799 Active Mima Erazo APRN Active BD PEN NEEDLE MINI U/F 31G X 5 MM MISC 4 a day INSULIN PEN NEEDLE 68300891253 Active Marvel Bertrandari MOPHEAD TRIMMER AND WRAPPER Active AMITIZA 24 MCG ORAL CAPS Take one capsule BID for constipation LUBIPROSTONE 77500802287 Active Mima Erazo WARDROBE ATTENDANT Active TRUEPLUS LANCETS 30G MISC 3 a day LANCETS 91025585160 Active Marvel 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 MOPHEAD TRIMMER AND WRAPPER Active TOLTERODINE TARTRATE 2 MG TABS 1 pill twice daily, for bladder TOLTERODINE TARTRATE 55322997677 No Longer Active Vanessa Hickey MD Active AMITIZA 24 MCG ORAL CAPS Take one capsule BID for constipation. LUBIPROSTONE 29286568319 No Longer Active Vanessa Hickey MD Active FLUVOXAMINE MALEATE 100 MG ORAL TABS take one tab every AM et HS, and take 1/ 2 tab at noon FLUVOXAMINE MALEATE 71363948280 Active Grace Azam RMA Active METOPROLOL SUCCINATE 100 MG [id number] 1 by mouth daily for blood pressure METOPROLOL SUCCINATE 13186360724 No Longer Active Grace Azam RMA Active METFORMIN HCL ER 500 MG [id number] Take three tablets by mouth everyday METFORMIN HCL 69932027205 No Longer Active Grace Azam RMA Active LOVAZA 1 GM CAPS 4 daily (for triglycerides) OMEGA-3- ACID ETHYL ESTERS 93539357439 No Longer Active Grace Azam RMA Active TRAZODONE HCL 100 MG ORAL TABS 1 tab by mouth for sleep TRAZODONE HCL 24675320792 No Longer Active Grace Azam RMA Active NOVOFINE 32G X 6 MM MISC use one four times per day INSULIN PEN NEEDLE 08076158411 No Longer Active Grace Azam RMA Active BACTROBAN 2 % CREAM Apply to affected area BID for up to 10 days MUPIROCIN CALCIUM 95755755614 No Longer Active Grace Nelsonb RMA Active KEFLEX 500 MG CAP 1 po BID x 7 days CEPHALEXIN 54642196088 No Longer Active Cherelle Speaks WARDROBE ATTENDANT Active FLUVOXAMINE MALEATE 100 MG TABS Take one (1) tablet by mouth am, 1/2 at noon FLUVOXAMINE MALEATE 41314671675 No Longer Active Mima Erazo WARDROBE ATTENDANT Active CORICIDIN HBP CONGESTION/COUGH 10-200 MG ORAL CAPS Take as directed on box as needed for cold/flu symptoms DEXTROMETHORPHAN-GUAIFENESIN 06150926602 Active Cherelle Speaks WARDROBE ATTENDANT Active OMEGA-3 300 MG ORAL CAPS 4 caps by mouth daily OMEGA-3 FATTY ACIDS 46578023818 Active Mima Erazo WARDROBE ATTENDANT Active FLUVOXAMINE MALEATE 100 MG ORAL TABS Take 1/2 tab at noon FLUVOXAMINE MALEATE 01416560162 No Longer Active Cherelle Austin WARDROBE ATTENDANT Active [facility] LUBRICANT EYE DROPS 0.4-0.3 % OPHTH SOLN POLYETHYL GLYCOL-PROPYL GLYCOL 76617759956 Active Mima Erazo WARDROBE ATTENDANT Active MIRALAX POWD 17g by mouth daily, for constipation POLYETHYLENE GLYCOL 3350 06568940078 Active Alina Castaneda MD PhD Active TRUETEST TEST STRP check blood sugars 3x/day GLUCOSE BLOOD 24809594848 Active Maliheh Ziglari MOPHEAD TRIMMER AND WRAPPER Active ACCU-CHEK ROSA UZMA Use device to check blood sugars BLOOD GLUCOSE MONITORING SUPPL 77539479915 No Longer Active Maliheh Ziglari MOPHEAD TRIMMER AND WRAPPER Active ACCU-CHEK ROSA INVITR STRP use strips with device to check blood sugars 3 times daily GLUCOSE BLOOD 17849571527 No Longer Active Maliheh Ziglari MOPHEAD TRIMMER AND WRAPPER Active VERAPAMIL HCL ER 180 MG ORAL CR-TABS 1 pill by mouth twice daily, for migraine prevention VERAPAMIL HCL 28559349766 Active CRYSTAL Rodrigues Active CYCLOBENZAPRINE HCL 10 MG TABS 1 tablet by mouth three times daily, scheduled CYCLOBENZAPRINE HCL 09320908197 No Longer Active Alina Castaneda MD PhD Active HUMALOG 100 UNIT/ML SOLN Take 20 units with breakfast, 10u with lunch and suppetr. INSULIN LISPRO (HUMAN) 81261178249 No Longer Active Alina Castaneda MD PhD Active TRUETEST TEST STRP check sugars 4x/day GLUCOSE BLOOD 19997669073 No Longer Active Alina Castaneda MD PhD Active MORPHINE SULFATE 30 MG TABS 1 pill by mouth twice daily, for pain MORPHINE SULFATE 89303609408 No Longer Active Mason Loredo MD Active ACYCLOVIR 400 MG ORAL TABS 1 pill three times daily x 5 days, for cold sore outbreak ACYCLOVIR 37778938008 No Longer Active Alina Castaneda MD PhD Active PENICILLIN V POTASSIUM 500 MG TABS 1 pill by mouth three times daily PENICILLIN V POTASSIUM 39571301582 No Longer Active Alina Castaneda MD PhD Active UROXATRAL 10 MG [id number]-AXS Take 1 tablet by mouth daily ALFUZOSIN HCL 41979426847 No Longer Active Alina Castaneda MD PhD Active THIOTHIXENE 5 MG CAPS by mouth twice a day THIOTHIXENE 78694095919 No Longer Active Alina Castaneda MD PhD Active ZYPREXA 7.5 MG TABS 1 at HS OLANZAPINE 74484047431 No Longer Active Alina Castaneda MD PhD Active BD INSULIN SYRINGE 28G X 1/2" 1 ML MISC 1 four times per day INSULIN SYRINGE-NEEDLE U-100 30093677323 Active Marvel Mackenzieglestela MOPHEAD TRIMMER AND WRAPPER Active DETROL LA 4 MG [id number]-LFJ Take 1 tablet by mouth daily TOLTERODINE TARTRATE 94758863618 No Longer Active Alina Castaneda MD PhD Active TERESE CONTOUR TEST STRP monitor blood sugars 3x/day GLUCOSE BLOOD 81202442742 No Longer Active Alina Castaneda MD PhD Active EQL TRUETEST TEST STRP Test blood sugar TID GLUCOSE BLOOD 63306542875 No Longer Active Alina Castaneda MD PhD Active FLUTICASONE PROPIONATE 50 MCG/ACT SUSP 2 sprays each nostril qDay x 30 days FLUTICASONE PROPIONATE 36100050273 No Longer Active Alina Castaneda MD PhD Active IBUPROFEN 200 MG TABS 1 Q 6 hr. PRN IBUPROFEN 69081754010 No Longer Active Alina Castaneda MD PhD Active NIACIN ER 500 MG CR-TABS 4 qHS (for triglycerides) NIACIN 35396965298 No Longer Active Alina Castaneda MD PhD Active ALFUZOSIN HCL ER 10 MG [id number] 1 tablet daily ALFUZOSIN HCL 90279610871 Active CRYSTAL Rodrigues Active SAPHRIS 5 MG SUBL by mouth twice a day ASENAPINE MALEATE 84977616506 No Longer Active Maljohn Ziglestela MENDOZAP Active ACETAMINOPHEN 500 MG TABS 2 Q 6 hr. PRN ACETAMINOPHEN 44042602992 No Longer Active Mallashondaeh 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 MOPHEAD TRIMMER AND WRAPPER Active ORPHENADRINE CITRATE ER 100 MG AM27J-IYU 1 every 12 hr. as needed ORPHENADRINE CITRATE 08339783218 No Longer Active Alina Castaneda MD PhD Active NIACIN CR 500 MG CR-TABS 2 qHS NIACIN 45150655988 No Longer Active Alina Castaneda MD PhD Active AMOXICILLIN 500 MG CAPS 2 po BID x 10 days AMOXICILLIN 29285942593 No Longer Active Alina Castaneda MD PhD Active HYDROCODONE-ACETAMINOPHEN 7.5-325 MG TABS 1 four times a day as needed for pain HYDROCODONE-ACETAMINOPHEN 31418120374 No Longer Active Alina Castaneda MD PhD Active DOXEPIN HCL 10 MG CAPS Take 1 tablet by mouth daily DOXEPIN HCL 71667084924 No Longer Active Salina Han [facility] Active NAVANE 10 MG CAPS 1/2 tablet twice a day THIOTHIXENE No Longer Active Salina Han A Active CYCLOBENZAPRINE HCL 10 MG TABS 1/2 tablet by mouth every 8 hours as needed for muscle spasms CYCLOBENZAPRINE HCL 75812842582 No Longer Active Alina Castaneda MD PhD Active BACTROBAN 2 % CREAM apply to ear and nose twice daily MUPIROCIN CALCIUM 66152976980 No Longer Active Alina Castaneda MD PhD Active HYDROCODONE-ACETAMINOPHEN 5-325 MG TABS take one tablet by mouth every four hours as needed for pain HYDROCODONE-ACETAMINOPHEN 65761053742 No Longer Active Alina Castaneda MD PhD Active ZYPREXA 5 MG TABS take one tablet by mouth every evening OLANZAPINE 87200712980 No Longer Active Alina Castaneda MD PhD Active ALBUTEROL SULFATE 0.083 % NEBU SOLN one vial per nebulizer TID and PRN cough/ soa ALBUTEROL SULFATE 71243738508 No Longer Active Alina Castaneda MD PhD Active GUAIFENESIN 600 MG GW15A-IND 1 tablet by mouth twice daily if needed for cough GUAIFENESIN 95884186019 No Longer Active Marvel Charles [facility] Active AZITHROMYCIN 500 MG SOLR 1 po q day AZITHROMYCIN 26440573286 No Longer Active Alina Castaneda MD PhD Active PROMETHAZINE-CODEINE 6.25-10 MG/5ML SYRP 1 tsp po q 6 hours prn cough PROMETHAZINE-CODEINE 28670980843 No Longer Active Alina Castaneda MD PhD Active CEFDINIR 300 MG CAPS by mouth twice a day CEFDINIR 47006464517 No Longer Active Alina Castaneda MD PhD Active METFORMIN HCL 500 MG TF30W-EMT Take 3 tablets by mouth everyday METFORMIN HCL 66907155466 No Longer Active Alina Castaneda MD PhD Active LEVEMIR 100 UNIT/ML SOLN 90 units SQ qHS INSULIN DETEMIR 20231786576 No Longer Active Marvel MARROQUIN Active TOPROL XL 100 MG [id number]-TZJ 1 @ HS METOPROLOL SUCCINATE 40290134692 No Longer Active Marvel MARROQUIN Active ALLOPURINOL 300 MG TABS Take one by mouth daily ALLOPURINOL 46022119412 Active Mimacecily Fierroum WARDROBE ATTENDANT Active ZYPREXA 10 MG TABS Take one by mouth daily OLANZAPINE 31759277318 No Longer Active Alina Castaneda MD PhD Active NOVOLOG 100 UNIT/ML SOLN 40 units with every meal INSULIN ASPART 55785800145 No Longer Active Alina Castaneda MD PhD Active VERAPAMIL HCL CR 120 MG TAB CR 1 qPM VERAPAMIL HCL 59309365852 No Longer Active Salina ROJAS Active ZYPREXA 15 MG TABS Take 1 tablet by mouth daily OLANZAPINE 72170521929 No Longer Active Marvel MARROQUIN Active ALBUTEROL SULFATE (2.5 MG/3ML) 0.083% NEBU 1 neb tid and prn cough ALBUTEROL SULFATE 58749862542 No Longer Active Alina Castaneda MD PhD Active LANTUS 100 UNIT/ML SOLN 60 units sq q hs INSULIN GLARGINE 72078335164 No Longer Active CRYSTAL Suarez Active ALBUTEROL SULFATE (2.5 MG/3ML) 0.083% NEBU 1 neb tid and prn cough ALBUTEROL SULFATE (2.5 MG/3ML) 0.083% NEBU 875064 ALBUTEROL SULFATE Inactive ZYPREXA 15 MG TABS Take 1 tablet by mouth daily ZYPREXA 15 MG TABS 538887 OLANZAPINE Inactive VERAPAMIL HCL CR 120 MG TAB CR 1 qPM VERAPAMIL HCL CR 120 MG TAB CR VERAPAMIL HCL Inactive ZYPREXA 10 MG TABS Take one by mouth daily ZYPREXA 10 MG TABS 268126 OLANZAPINE Inactive TOPROL XL 100 MG [id number] 1 @ HS TOPROL XL 100 MG [id number]-BEK METOPROLOL SUCCINATE Inactive LEVEMIR 100 UNIT/ML SOLN 90 units SQ qHS LEVEMIR 100 UNIT/ML SOLN INSULIN DETEMIR Inactive PROMETHAZINE-CODEINE 6.25-10 MG/5ML SYRP 1 tsp po q 6 hours prn cough PROMETHAZINE-CODEINE 6.25-10 MG/5ML SYRP 102324 PROMETHAZINE- CODEINE Inactive GUAIFENESIN 600 MG [id number] 1 tablet by mouth twice daily if needed for cough GUAIFENESIN 600 MG [id number]-[id number] GUAIFENESIN Inactive ALBUTEROL SULFATE 0.083 % NEBU SOLN one vial per nebulizer TID and PRN cough/ soa ALBUTEROL SULFATE 0.083 % NEBU SOLN 529094 ALBUTEROL SULFATE Inactive ZYPREXA 5 MG TABS take one tablet by mouth every evening ZYPREXA 5 MG TABS 117517 OLANZAPINE Inactive HYDROCODONE-ACETAMINOPHEN 5-325 MG TABS take one tablet by mouth every four hours as needed for pain HYDROCODONE-ACETAMINOPHEN 5-325 MG TABS 030980 HYDROCODONE-ACETAMINOPHEN Inactive BACTROBAN 2 % CREAM apply to ear and nose twice daily BACTROBAN 2 % CREAM 007493 MUPIROCIN CALCIUM Inactive CYCLOBENZAPRINE HCL 10 MG TABS 1/2 tablet by mouth every 8 hours as needed for muscle spasms CYCLOBENZAPRINE HCL 10 MG TABS 711268 CYCLOBENZAPRINE HCL Inactive NAVANE 10 MG CAPS 1/2 tablet twice a day NAVANE 10 MG CAPS THIOTHIXENE Inactive DOXEPIN HCL 10 MG CAPS Take 1 tablet by mouth daily DOXEPIN HCL 10 MG CAPS 7661640 DOXEPIN HCL Inactive HYDROCODONE-ACETAMINOPHEN 7.5-325 MG TABS 1 four times a day as needed for pain HYDROCODONE-ACETAMINOPHEN 7.5-325 MG TABS 799927 HYDROCODONE-ACETAMINOPHEN Inactive NIACIN CR 500 MG CR-TABS 2 qHS NIACIN CR 500 MG CR- TABS NIACIN Inactive ORPHENADRINE CITRATE ER 100 MG [id number]-MPH 1 every 12 hr. as needed ORPHENADRINE CITRATE ER 100 MG [id number] ORPHENADRINE CITRATE Inactive ACETAMINOPHEN 500 MG TABS 2 Q 6 hr. PRN ACETAMINOPHEN 500 MG TABS 886208 ACETAMINOPHEN Inactive SAPHRIS 5 MG SUBL by mouth twice a day SAPHRIS 5 MG SUBL ASENAPINE MALEATE Inactive NIACIN ER 500 MG CR-TABS 4 qHS (for triglycerides) NIACIN ER 500 MG CR-TABS NIACIN Inactive IBUPROFEN 200 MG TABS 1 Q 6 hr. PRN IBUPROFEN 200 MG TABS 991835 IBUPROFEN Inactive FLUTICASONE PROPIONATE 50 MCG/ACT SUSP 2 sprays each nostril qDay x 30 days FLUTICASONE PROPIONATE 50 MCG/ACT SUSP 317953 FLUTICASONE PROPIONATE Inactive EQL TRUETEST TEST STRP Test blood sugar TID EQL TRUETEST TEST STRP GLUCOSE BLOOD Inactive TERESE CONTOUR TEST STRP monitor blood sugars 3x/day TERESE CONTOUR TEST STRP GLUCOSE BLOOD Inactive DETROL LA 4 MG [id number]-[id number] Take 1 tablet by mouth daily DETROL LA 4 MG GU77O-TED TOLTERODINE TARTRATE Inactive ZYPREXA 7.5 MG TABS 1 at HS ZYPREXA 7.5 MG TABS 721530 OLANZAPINE Inactive THIOTHIXENE 5 MG CAPS by mouth twice a day THIOTHIXENE 5 MG CAPS 456490 THIOTHIXENE Inactive UROXATRAL 10 MG [id number] Take 1 tablet by mouth daily UROXATRAL 10 MG [id number]-ZLW ALFUZOSIN HCL Inactive ACYCLOVIR 400 MG ORAL TABS 1 pill three times daily x 5 days, for cold sore outbreak ACYCLOVIR 400 MG ORAL TABS 570085 ACYCLOVIR Inactive TRUETEST TEST STRP check sugars 4x/day TRUETEST TEST STRP GLUCOSE BLOOD Inactive HUMALOG 100 UNIT/ML SOLN Take 20 units with breakfast, 10u with lunch and suppetr. HUMALOG 100 UNIT/ML SOLN INSULIN LISPRO ( HUMAN) Inactive CYCLOBENZAPRINE HCL 10 MG TABS 1 tablet by mouth three times daily, scheduled CYCLOBENZAPRINE HCL 10 MG TABS 553245 CYCLOBENZAPRINE HCL Inactive ACCU-CHEK ROSA INVITR STRP use strips with device to check blood sugars 3 times daily ACCU-CHEK ROSA INVITR STRP GLUCOSE BLOOD Inactive ACCU-CHEK ROSA UZMA Use device to check blood sugars ACCU-CHEK ROSA UZMA BLOOD GLUCOSE MONITORING SUPPL Inactive FLUVOXAMINE MALEATE 100 MG ORAL TABS Take 1/2 tab at noon FLUVOXAMINE MALEATE 100 MG ORAL TABS 385745 FLUVOXAMINE MALEATE Inactive FLUVOXAMINE MALEATE 100 MG TABS Take one (1) tablet by mouth am, 1/2 at noon FLUVOXAMINE MALEATE 100 MG TABS 525153 FLUVOXAMINE MALEATE Inactive BACTROBAN 2 % CREAM Apply to affected area BID for up to 10 days BACTROBAN 2 % CREAM 763437 MUPIROCIN CALCIUM Inactive NOVOFINE 32G X 6 MM MISC use one four times per day NOVOFINE 32G X 6 MM MISC INSULIN PEN NEEDLE Inactive TRAZODONE HCL 100 MG ORAL TABS 1 tab by mouth for sleep TRAZODONE HCL 100 MG ORAL TABS 047699 TRAZODONE HCL Inactive LOVAZA 1 GM CAPS 4 daily (for triglycerides) LOVAZA 1 GM CAPS 620070 XQCYH-9-SWYS ETHYL ESTERS Inactive METFORMIN HCL ER 500 MG WP78E-BWT Take three tablets by mouth everyday METFORMIN HCL ER 500 MG KY94F-PIE METFORMIN HCL Inactive METOPROLOL SUCCINATE 100 MG QF54O-RLV 1 by mouth daily for blood pressure METOPROLOL SUCCINATE 100 MG ZR83H-JVH METOPROLOL SUCCINATE Inactive AMITIZA 24 MCG ORAL CAPS Take one capsule BID for constipation. AMITIZA 24 MCG ORAL CAPS LUBIPROSTONE Inactive TOLTERODINE TARTRATE 2 MG TABS 1 pill twice daily, for bladder TOLTERODINE TARTRATE 2 MG TABS 014249 TOLTERODINE TARTRATE Inactive COLACE 100 MG CAPS 1 pill by mouth twice daily, for constipation COLACE 100 MG CAPS 4631866 DOCUSATE SODIUM Inactive LOMOTIL 2.5-0.025 MG ORAL TABS take 1-2 tabs PO after each stool, no more than 8 in 24 hours LOMOTIL 2.5-0.025 MG ORAL TABS 8677654 DIPHENOXYLATE-ATROPINE Inactive ZOFRAN 4 MG TABS 1 po q4hr PRN Nausea ZOFRAN 4 MG TABS 817225 ONDANSETRON HCL Inactive HYDROCODONE-ACETAMINOPHEN 5-325 MG TABS 2 tabs by mouth three times daily for pain HYDROCODONE-ACETAMINOPHEN 5-325 MG TABS 773404 HYDROCODONE-ACETAMINOPHEN Inactive ZOLPIDEM TARTRATE 10 MG TABS take at bedtime ZOLPIDEM TARTRATE 10 MG TABS 951817 ZOLPIDEM TARTRATE Inactive LISINOPRIL 20 MG TABS 1 BID LISINOPRIL 20 MG TABS 909219 LISINOPRIL Inactive TRAVATAN Z 0.004 % SOLN 1 gtt each eye daily TRAVATAN Z 0.004 % SOLN TRAVOPROST Inactive LATUDA 60 MG ORAL TABS Take one by mouth daily LATUDA 60 MG ORAL TABS LURASIDONE HCL Inactive CEFDINIR 300 MG CAPS by mouth twice a day CEFDINIR 300 MG CAPS 256406 CEFDINIR Inactive AZITHROMYCIN 500 MG SOLR 1 po q day AZITHROMYCIN 500 MG SOLR 78480925789 AZITHROMYCIN Inactive AMOXICILLIN 500 MG CAPS 2 po BID x 10 days AMOXICILLIN 500 MG CAPS 195275 AMOXICILLIN Inactive PENICILLIN V POTASSIUM 500 MG TABS 1 pill by mouth three times daily PENICILLIN V POTASSIUM 500 MG TABS 558281 PENICILLIN V POTASSIUM Inactive KEFLEX 500 MG CAP 1 po BID x 7 days KEFLEX 500 MG CAP 773934 CEPHALEXIN Inactive Immunizations Vaccine Administration Date Value [...] Fluvirin, Fluarix, Agriflu(>=18 yo)) Fluzone (>3 yrs.) [[id number]] Influenza, seasonal, injectable pneumococcal immunization administered Pneumovax [...] Panel - Chemistry sodium, serum 137 mmol/L 034-965 7269/10/12 potassium, serum 4.8 mmol/L 3.5-5.2 chloride, serum 102 mmol/L 98-107 carbon dioxide, venous blood 27.6 mmol/L 21.0-32.0 blood glucose 168 mg/dL 65-110 calcium, serum 9.0 mg/dL 8.5-10.1 urea nitrogen, blood 15 mg/dL 7-18 creatinine, serum 1.04 mg/dL 0.55-1.30 sodium, serum 138 mmol/L 817-419 6875/11/11 potassium, serum 4.7 mmol/L 3.5-5.2 chloride, serum [...] % 11.6-14.8 platelet count 240 10^3/MM^3 10*3/mm3 342-875 2764/11/11 leukocyte count, blood 9.6 10^3/MM^3 10*3/mm3 4.6-10.2 [...] Acid - Chemistry cholesterol, serum 187 mg/dL 773-300 5156/06/14 triglyceride, serum, fasting 246 mg/dL 30-200 HDL [...] negative Encounters Code Encounter Date Provider Facility CPT-15064 Level 3 Est. Patient 17:40:16 CDT Mima Erazo [facility] CPT-88341 Level 3 Est. Patient 14:34:52 CDT Vanessa Hickey MD [facility] CPT-54418 Level 3 Est. Patient 16:27:51 CDT Mima Erazo [facility] CPT-39647 Level 3 Est. Patient 14:39:00 VESSEL BUILDER Vanessa Hickey MD [facility] CPT-09561 Level 2 Est. Patient 18:43:34 CDT Mima Erazo [facility] CPT-34087 Level 3 Est. Patient 16:22:09 CDT Cherelle Avila [facility] CPT-20443 Level 4 Est. Patient 17:55:14 CDT Mima Erazo [facility] CPT-06792 Level 2 Est. Patient 17:13:21 CDT Alina Castaneda MD [facility]-97602 Level 3 Est. Patient 14:46:15 CDT Vanessa Hickey MD [facility]-45328 Level 3 Est. Patient 09:34:56 CDT Alina Castaneda MD [facility]28372 Level 3 Est. Patient 21:40:19 CDT Mima Erazo [place] [facility]-62678 Level 3 Est. Patient 09:26:40 CDT Marvel Charles [facility]-18696 Level 3 Est. Patient 12:36:43 CDT Vanessa Hickey MD [facility]57912 Level 3 Est. Patient 12:57:49 CDT Vanessa Hickey MD [facility]03777 Level 3 Est. Patient 00:28:25 CDT Alina Castaneda MD [facility]81424 Level 2 Est. Patient 12:52:14 CDT Alina Castaneda MD [facility]34874 Level 3 Est. Patient 11:51:18 VESSEL BUILDER Alina Castaneda MD [facility]-26708 Level 3 Est. Patient 10:09:22 VESSEL BUILDER Alina Castaneda MD [facility]55428 Level 3 Est. Patient 14:36:26 VESSEL BUILDER Marvel Charles [facility]15399 Level 3 Est. Patient 13:34:47 VESSEL BUILDER Alina Castaneda MD [facility]42679 Level 3 Est. Patient 19:52:08 VESSEL BUILDER Alina Castaneda MD [facility]16021 Level 3 Est. Patient 10:01:51 VESSEL BUILDER Marvel Charles [facility]-75927 Level 3 Est. Patient 21:54:06 CDT Vanessa Hickey MD [facility]-07174 Level 3 Est. Patient 08:54:46 CDT Alina Castaneda MD [facility]-37619 Level 3 Est. Patient 09:32:11 CDT Marvel Araceli [facility]-20377 Level 3 Est. Patient 12:02:49 CDT Alina Castaneda MD [facility]02690 Level 3 Est. Patient 19:17:33 CDT Alina Castaneda [facility]45667 Level 3 Est. [facility]29223 Level 3 Est. Patient 08:20:05 CDT Alina Castaneda MD [facility]-38433 Level 3 Est. Patient 15:17:18 CDT Alina Castaneda [facility]22024 Level 3 Est. Patient 14:25:36 [facility] Est[facility] Patient 10:09:15 VESSEL BUILDER [facility]22467 Level 3 Est. Patient 21:28:43 CDT Alina Castaneda MD [facility]03149 Level 3 Est. Patient 15:20:11 CDT [place] [facility]-59099 Level 4 Est. Patient 19:08:12 CDT Alina Castaneda [facility]47654 Level 3 Est. Patient 15:06:39 CDT [facility] Araceli [facility]-42138 Level 4 Est. Patient 17:48:15 CDT Alina Castaneda MD [facility]-78314 Level 3 Est. Patient 14:53:49 CDT Alina Castaneda MD [facility] [place]-49408 Level 3 Est. Patient 09:35:16 CDT Alina Castaneda MD [facility] [place]-35541 Level 3 Est. Patient 12:23:22 CDT Alina Castaneda MD [facility] [place]-48382 Level 3 Est. Patient 16:19:15 CDT Alina Castaneda MD [facility] [place]-38478 Level 3 Est. Patient 21:39:56 VESSEL BUILDER Alina Castaneda MD [facility] [place]-91881 Level 4 Est. Patient 14:12:56 VESSEL BUILDER Alina Castaneda MD [facility] [place]-83334 Level 2 Est. Patient 15:34:57 VESSEL BUILDER Alina Castaneda MD [facility] [place]-45990 Level 3 Est. 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 Patient 21:50:24 CDT Alina Castaneda MD [facility] [place]-82817 Level 3 Est. Patient 09:17:28 CDT [facility]-16705 Level 4 Est. Patient 18:54:02 CDT Alina Castaneda MD [facility]16773 Level 3 Est. Patient 10:47:10 CDT Alina Castaneda MD [facility] [place]-96776 Level 3 Est. Patient 09:22:20 CDT Marvel [facility] CPT-65212 Level 3 Est. Patient 16:39:43 CDT [facility] Level 3 Est. Patient 16:05:16 CDT Alina Castaneda MD [facility] CPT-34662 Level 3 Est. Patient 00:29:15 CDT Alina Castaneda MD [facility] CPT-24973 Level 3 Est. Patient 10:49:22 VESSEL BUILDER Marvel Thurstonestela [facility] CPT-01024 Level 3 Est. Patient 21:30:19 VESSEL BUILDER Alina Castaneda MD [facility] CPT-12607 Level 4 Est. Patient 17:04:11 [facility]ESSEL [facility]ILDER [facility]69 Level 3 Est. Patient 15:34:11 [facility]81863 Level 2 Est. Patient 12:51:58 VESSEL BUILDER Alina Castaneda MD [facility] CPT-88465 Level 3 Est. Patient 13:20:01 VESSEL BUILDER Alina Castaneda MD [facility] CPT-52460 Level 3 Est. Patient 09:23:35 CDT Alina Castaneda MD [facility] Procedures Code Procedure Name Date Entry Date Standard Description CPT-TCMM Transitional Care Mgmt-Moderate 10:25:31 CDT CPT-45316 Bladder Scan 14:34:53 CDT CPT-47830 Bladder Scan 14:39:01 VESSEL BUILDER CPT-TCMM Transitional Care Mgmt-Moderate 10:30:19 VESSEL BUILDER CPT-32854 Bladder Scan 12:36:44 CDT CPT-51365 Bladder Scan 21:54:06 CDT CPT-G0008 Administration of Influenza Virus Vaccine 13:05:26 CDT CPT-14191 Fluzone Quadrivalent Intramuscular Suspension 0.5 ML 13: 05:26 CDT CPT-00623 Administration single or combination vaccine inc oral 11 :49:51 CDT CPT-97505 Pneumovax 11:49:51 CDT CPT-77746 Ribs unilateral 2V 12:37:22 VESSEL BUILDER CPT-03968 Chest 2V Frontal and Lat 17:15:26 CDT CPT-13730 Abx/Therapy Injection 18:54:02 CDT CPT-J0696 Rocephin 1000 mg (Ceftriaxone) 16:00:32 CDT CPT-82658 Chest 2V Frontal and Lat 15:26:45 CDT CPT-50456 Chest 2V Frontal and Lat 10:23:27 CDT CPT-05173 Venipuncture Draw Fee 10:11:00 CDT CPT-13506 Administration single or combination vaccine inc oral 11 :56:38 CDT CPT-03945 Influenza split virus > age 3 11:56:38 CDT CPT-28342 Venipuncture Draw Fee 08:49:54 VESSEL BUILDER CPT-38637 EKG Trac and Interp 17:54:19 VESSEL BUILDER
--- OUTSIDE RECORDS SUMMARY | 2018-07-02 14:31 | XMS REPORT | Clinical Summary ---
Author Author Admin, TERELL Organization [facility] Address Unknown Phone Unavailable Allergies, Adverse [...] positional vertigo 386.11 Active Mima Erazo SERVICE TECHNICIAN Benign paroxysmal positional vertigo Vertigo, benign paroxysmal position 386.11 Inactive Mima Erazo SERVICE TECHNICIAN Benign paroxysmal positional vertigo High-risk sexual behavior V69.2 Active Alina Castaneda MD PhD High-risk sexual behavior Erectile dysfunction 302.72 Active Alina Castaneda MD PhD Psychosexual dysfunction with inhibited sexual excitement Constipation 564.00 Active Alina Castaneda MD PhD Constipation, unspecified Skin lesion 709.9 Active Alina Castaneda MD PhD Unspecified disorder of skin and subcutaneous tissue Malaise and fatigue 780.79 Active Cherelle Speaks SERVICE TECHNICIAN Other malaise and fatigue Diarrhea 787.91 Active Cherelle Speaks SERVICE TECHNICIAN Diarrhea PHARYNGITIS 462 Active Cherelle Speaks SERVICE TECHNICIAN Acute pharyngitis Colitis 558.9 Active Mima Erazo SERVICE TECHNICIAN Other and unspecified noninfectious gastroenteritis and colitis WOUND, OPEN, NOSE ICD-873.20 Inactive Alina Castaneda MD PhD DIABETES, TYPE 2 ICD-250.00 Inactive Alina Castaneda MD PhD HYPERTENSION ICD-401.9 Inactive Alina Castaneda MD PhD URI ICD-465.9 Inactive Alina Castaneda MD PhD CHEST PAIN ICD-786.50 Inactive Alina Castaneda MD PhD FH STROKE ICD-V17.1 Inactive Marvel Charles SMOG TECHNICIAN FATIGUE ICD-780.79 Inactive Alina Castaneda MD [...] mouth twice daily, for constipation DOCUSATE SODIUM 70379998671 No Longer Active Mima Erazo APRN Active FLONASE ALLERGY RELIEF 50 MCG/ACT NASAL SUSP One spray each nostril BID x 1 week then daily FLUTICASONE PROPIONATE 47099586849 Active Mimacecily Erazo APRN Active BD PEN NEEDLE MINI U/F 31G X 5 MM MISC 4 a day INSULIN PEN NEEDLE 44140569311 Active Mallashondaeh Ziglari SMOG TECHNICIAN Active AMITIZA 24 MCG ORAL CAPS Take one capsule BID for constipation LUBIPROSTONE 35397718891 Active Mimacecily Erazo APRN Active LEVEMIR FLEXTOUCH 100 UNIT/ML SC SOPN 75 units SQ each evening, for diabetes INSULIN DETEMIR 00979056775 Active Mima Erazo APRN Active TRUEPLUS LANCETS 30G MISC 3 a day LANCETS 26737410377 Active Mallashondaeh Ziglari SMOG TECHNICIAN Active TOLTERODINE TARTRATE 2 MG TABS 1 pill twice daily, for bladder TOLTERODINE TARTRATE 76723317547 No Longer Active Vanessa Hickey MD Active AMITIZA 24 MCG ORAL CAPS Take one capsule BID for constipation. LUBIPROSTONE 22404032833 No Longer Active Vanessa Hickey MD Active LOMOTIL 2.5-0.025 MG ORAL TABS take 1-2 tabs PO after each stool, no more than 8 in 24 hours DIPHENOXYLATE-ATROPINE 72539481692 Active Grace Nascimento RMA Active FLUVOXAMINE MALEATE 100 MG ORAL TABS take one tab every AM et HS, and take 1/ 2 tab at noon FLUVOXAMINE MALEATE 52702912493 Active Gracekailee Nascimento RMA Active METOPROLOL SUCCINATE 100 MG [id number] 1 by mouth daily for blood pressure METOPROLOL SUCCINATE 95990053721 No Longer Active Grace Nascimento RMA Active METFORMIN HCL ER 500 MG [id number] Take three tablets by mouth everyday METFORMIN HCL 25378658834 No Longer Active Grace Nascimento RMA Active LOVAZA 1 GM CAPS 4 daily (for triglycerides) OMEGA-3- ACID ETHYL ESTERS 12326216368 No Longer Active Grace Nascimento RMA Active TRAZODONE HCL 100 MG ORAL TABS 1 tab by mouth for sleep TRAZODONE HCL 73909671560 No Longer Active Grace Nascimento RMA Active NOVOFINE 32G X 6 MM MISC use one four times per day INSULIN PEN NEEDLE 38106291869 No Longer Active Grace Nascimento RMA Active BACTROBAN 2 % CREAM Apply to affected area BID for up to 10 days MUPIROCIN CALCIUM 41349914555 No Longer Active Grace Nascimento RMA Active ZOFRAN 4 MG TABS 1 po q4hr PRN Nausea ONDANSETRON HCL 84923430289 Active Salina Han RMA Active KEFLEX 500 MG CAP 1 po BID x 7 days CEPHALEXIN 39203970260 No Longer Active Cherelle Avila APRN Active FLUVOXAMINE MALEATE 100 MG TABS Take one (1) tablet by mouth am, 1/2 at noon FLUVOXAMINE MALEATE 73817622981 No Longer Active Mima Erazo SERVICE TECHNICIAN Active CORICIDIN HBP CONGESTION/COUGH 10-200 MG ORAL CAPS Take as directed on box as needed for cold/flu symptoms DEXTROMETHORPHAN-GUAIFENESIN 87432467480 Active Cherelle Speaks SERVICE TECHNICIAN Active OMEGA-3 300 MG ORAL CAPS 4 caps by mouth daily OMEGA-3 FATTY ACIDS 64974764082 Active Mima Fierroum SERVICE TECHNICIAN Active FLUVOXAMINE MALEATE 100 MG ORAL TABS Take 1/2 tab at noon FLUVOXAMINE MALEATE 50563488459 No Longer Active Cherelle Avila SERVICE TECHNICIAN Active [facility] LUBRICANT EYE DROPS 0.4-0.3 % OPHTH SOLN POLYETHYL GLYCOL-PROPYL GLYCOL 23950710289 Active Mima Erazo SERVICE TECHNICIAN Active CLONAZEPAM 1 MG TABS 1/2 pill by mouth three times daily CLONAZEPAM 71672259104 Active Mima Fierroum SERVICE TECHNICIAN Active MIRALAX POWD 17g by mouth daily, for constipation POLYETHYLENE GLYCOL 3350 91672858369 Active Alina Castaneda MD PhD Active HYDROCODONE-ACETAMINOPHEN 5-325 MG TABS 2 tabs by mouth three times daily for pain HYDROCODONE-ACETAMINOPHEN 52823899826 Active Mima Erazo SERVICE TECHNICIAN Active HUMALOG KWIKPEN 100 UNIT/ML SC SOPN 20 units with breakfast, 10 units with lunch, 10 units with dinner, for diabetes INSULIN LISPRO (HUMAN ) 03941159847 Active Alina Castaneda MD PhD Active LATUDA 120 MG ORAL TABS 1 pill by mouth nightly LURASIDONE HCL 62776651848 Active Alina Castaneda MD PhD Active TRUETEST TEST STRP check blood sugars 3x/day GLUCOSE BLOOD 98362761364 Active Marvel MENDOZAP Active ACCU-CHEK ROSA UZMA Use device to check blood sugars BLOOD GLUCOSE MONITORING SUPPL 42390243183 No Longer Active Marvel Charles SMOG TECHNICIAN Active ACCU-CHEK ROSA INVITR STRP use strips with device to check blood sugars 3 times daily GLUCOSE BLOOD 24598782913 No Longer Active Marvel MARROQUIN Active VERAPAMIL HCL ER 180 MG ORAL CR-TABS 1 pill by mouth twice daily, for migraine prevention VERAPAMIL HCL 05488753791 Active Alina Castaneda MD PhD Active CYCLOBENZAPRINE HCL 10 MG TABS 1 tablet by mouth three times daily, scheduled CYCLOBENZAPRINE HCL 97686171003 No Longer Active Alina Castaneda MD PhD Active HUMALOG 100 UNIT/ML SOLN Take 20 units with breakfast, 10u with lunch and suppetr. INSULIN LISPRO (HUMAN) 29233887375 No Longer Active Alina Castaneda MD PhD Active TRUETEST TEST STRP check sugars 4x/day GLUCOSE BLOOD 31010365030 No Longer Active Alina Castaneda MD PhD Active MORPHINE SULFATE 30 MG TABS 1 pill by mouth twice daily, for pain MORPHINE SULFATE 21759577689 Active Mima Erazo SERVICE TECHNICIAN Active ACYCLOVIR 400 MG ORAL TABS 1 pill three times daily x 5 days, for cold sore outbreak ACYCLOVIR 28101643150 No Longer Active Alina Castaneda MD PhD Active PENICILLIN V POTASSIUM 500 MG TABS 1 pill by mouth three times daily PENICILLIN V POTASSIUM 52160715673 No Longer Active Alina Castaneda MD PhD Active UROXATRAL 10 MG [id number] Take 1 tablet by mouth daily ALFUZOSIN HCL 55796600153 No Longer Active Alina Castaneda MD PhD Active THIOTHIXENE 5 MG CAPS by mouth twice a day THIOTHIXENE 30832751024 No Longer Active Alina Castaneda MD PhD Active ZYPREXA 7.5 MG TABS 1 at HS OLANZAPINE 59175464991 No Longer Active Alina Castaneda MD PhD Active BD INSULIN SYRINGE 28G X 1/2" 1 ML MISC 1 four times per day INSULIN SYRINGE-NEEDLE U-100 94584224436 Active Marvel Thurstonari SMOG TECHNICIAN Active DETROL LA 4 MG [id number] Take 1 tablet by mouth daily TOLTERODINE TARTRATE 60434845340 No Longer Active Alina Castaneda MD PhD Active TERESE CONTOUR TEST STRP monitor blood sugars 3x/day GLUCOSE BLOOD 08790535573 No Longer Active Alina Castaneda MD PhD Active EQL TRUETEST TEST STRP Test blood sugar TID GLUCOSE BLOOD 37698061023 No Longer Active Alina Castaneda MD PhD Active FLUTICASONE PROPIONATE 50 MCG/ACT SUSP 2 sprays each nostril qDay x 30 days FLUTICASONE PROPIONATE 06400351456 No Longer Active Alina Castaneda MD PhD Active IBUPROFEN 200 MG TABS 1 Q 6 hr. PRN IBUPROFEN 25768291789 No Longer Active Alina Castaneda MD PhD Active NIACIN ER 500 MG CR-TABS 4 qHS (for triglycerides) NIACIN 10644129174 No Longer Active Alina Castaneda MD PhD Active ALFUZOSIN HCL ER 10 MG [id number] 1 tablet daily ALFUZOSIN HCL 86194736959 Active Vanessa Hickey MD Active SAPHRIS 5 MG SUBL by mouth twice a day ASENAPINE MALEATE 30000755361 No Longer Active Marvel MARROQUIN Active ACETAMINOPHEN 500 MG TABS 2 Q 6 hr. PRN ACETAMINOPHEN 88121392271 No Longer Active Marvel Thurstonari LOPEZ Active ORPHENADRINE CITRATE ER 100 MG [id number] 1 every 12 hr. as needed ORPHENADRINE CITRATE 71548296364 No Longer Active Alina Castaneda MD PhD Active NIACIN CR 500 MG CR-TABS 2 qHS NIACIN 60858055893 No Longer Active Alina Castaneda MD PhD Active AMOXICILLIN 500 MG CAPS 2 po BID x 10 days AMOXICILLIN 56587501665 No Longer Active Alina Castaneda MD PhD Active HYDROCODONE-ACETAMINOPHEN 7.5-325 MG TABS 1 four times a day as needed for pain HYDROCODONE-ACETAMINOPHEN 50204962184 No Longer Active Alina Castaneda MD PhD Active DOXEPIN HCL 10 MG CAPS Take 1 tablet by mouth daily DOXEPIN HCL 98164677988 No Longer Active Salina Han [facility] Active NAVANE 10 MG CAPS 1/2 tablet twice a day THIOTHIXENE No Longer Active Salina Han [facility] Active CYCLOBENZAPRINE HCL 10 MG TABS 1/2 tablet by mouth every 8 hours as needed for muscle spasms CYCLOBENZAPRINE HCL 96245047171 No Longer Active Alina Castaneda MD PhD Active BACTROBAN 2 % CREAM apply to ear and nose twice daily MUPIROCIN CALCIUM 95102096341 No Longer Active Alina Castaneda MD PhD Active HYDROCODONE-ACETAMINOPHEN 5-325 MG TABS take one tablet by mouth every four hours as needed for pain HYDROCODONE-ACETAMINOPHEN 91674999697 No Longer Active Alina Castaneda MD PhD Active ZOLPIDEM TARTRATE 10 MG TABS take at bedtime ZOLPIDEM TARTRATE 43406732281 Active Alina Castaneda MD PhD Active ZYPREXA 5 MG TABS take one tablet by mouth every evening OLANZAPINE 14213545744 No Longer Active Alina Castaneda MD PhD Active ALBUTEROL SULFATE 0.083 % NEBU SOLN one vial per nebulizer TID and PRN cough/ soa ALBUTEROL SULFATE 07488717877 No Longer Active Alina Castaneda MD PhD Active GUAIFENESIN 600 MG [id number] 1 tablet by mouth twice daily if needed for cough GUAIFENESIN 00106995186 No Longer Active Marvel MARROQUIN Active AZITHROMYCIN 500 MG SOLR 1 po q day AZITHROMYCIN 73461415339 No Longer Active Alina Castaneda MD PhD Active PROMETHAZINE-CODEINE 6.25-10 MG/5ML SYRP 1 tsp po q 6 hours prn cough PROMETHAZINE-CODEINE 10556666757 No Longer Active Alina Castaneda MD PhD Active CEFDINIR 300 MG CAPS by mouth twice a day CEFDINIR 96342536422 No Longer Active Alina Castaneda MD PhD Active METFORMIN HCL 500 MG [id number]-[id number] Take 3 tablets by mouth everyday METFORMIN HCL 63854990420 No Longer Active Alina Castaneda MD PhD Active LEVEMIR 100 UNIT/ML SOLN 90 units SQ qHS INSULIN DETEMIR 56764495273 No Longer Active Marvel MARROQUIN Active TOPROL XL 100 MG [id number] 1 @ HS METOPROLOL SUCCINATE 13650892627 No Longer Active Marvel MARROQUIN Active ALLOPURINOL 300 MG TABS Take one by mouth daily ALLOPURINOL 39582570965 Active Mima Erazo SERVICE TECHNICIAN Active ZYPREXA 10 MG TABS Take one by mouth daily OLANZAPINE 42897609483 No Longer Active Alina Castaneda MD PhD Active NOVOLOG 100 UNIT/ML SOLN 40 units with every meal INSULIN ASPART 10399627485 No Longer Active Alina Castaneda MD PhD Active VERAPAMIL HCL CR 120 MG TAB CR 1 qPM VERAPAMIL HCL 57084690025 No Longer Active Salina ROJAS Active ZYPREXA 15 MG TABS Take 1 tablet by mouth daily OLANZAPINE 10874825864 No Longer Active Marvel MARROQUIN Active LISINOPRIL 20 MG TABS 1 BID LISINOPRIL 45111805200 Active Alina Castaneda MD PhD Active ALBUTEROL SULFATE (2.5 MG/3ML) 0.083% NEBU 1 neb tid and prn cough ALBUTEROL SULFATE 66461015160 No Longer Active Alina Castaneda MD PhD Active TRAVATAN Z 0.004 % SOLN 1 gtt each eye daily TRAVOPROST 16024665688 Active CRYSTAL Suarez Active LANTUS 100 UNIT/ML SOLN 60 units sq q hs INSULIN GLARGINE 62467708885 No Longer Active CRYSTAL Suarez Active ALBUTEROL SULFATE (2.5 MG/3ML) 0.083% NEBU 1 neb tid and prn cough ALBUTEROL SULFATE (2.5 MG/3ML) 0.083% NEBU 114173 ALBUTEROL SULFATE Inactive ZYPREXA 15 MG TABS Take 1 tablet by mouth daily ZYPREXA 15 MG TABS 582912 OLANZAPINE Inactive VERAPAMIL HCL CR 120 MG TAB CR 1 qPM VERAPAMIL HCL CR 120 MG TAB CR VERAPAMIL HCL Inactive ZYPREXA 10 MG TABS Take one by mouth daily ZYPREXA 10 MG TABS 181300 OLANZAPINE Inactive TOPROL XL 100 MG [id number] 1 @ HS TOPROL XL 100 MG NP76C-IZV METOPROLOL SUCCINATE Inactive LEVEMIR 100 UNIT/ML SOLN 90 units SQ qHS LEVEMIR 100 UNIT/ML SOLN INSULIN DETEMIR Inactive PROMETHAZINE-CODEINE 6.25-10 MG/5ML SYRP 1 tsp po q 6 hours prn cough PROMETHAZINE-CODEINE 6.25-10 MG/5ML SYRP 382767 PROMETHAZINE- CODEINE Inactive GUAIFENESIN 600 MG KU95E-RNS 1 tablet by mouth twice daily if needed for cough GUAIFENESIN 600 MG FG71I-PXP GUAIFENESIN Inactive ALBUTEROL SULFATE 0.083 % NEBU SOLN one vial per nebulizer TID and PRN cough/ soa ALBUTEROL SULFATE 0.083 % NEBU SOLN 959477 ALBUTEROL SULFATE Inactive ZYPREXA 5 MG TABS take one tablet by mouth every evening ZYPREXA 5 MG TABS 165390 OLANZAPINE Inactive HYDROCODONE-ACETAMINOPHEN 5-325 MG TABS take one tablet by mouth every four hours as needed for pain HYDROCODONE-ACETAMINOPHEN 5-325 MG TABS 938552 HYDROCODONE-ACETAMINOPHEN Inactive BACTROBAN 2 % CREAM apply to ear and nose twice daily BACTROBAN 2 % CREAM 309947 MUPIROCIN CALCIUM Inactive CYCLOBENZAPRINE HCL 10 MG TABS 1/2 tablet by mouth every 8 hours as needed for muscle spasms CYCLOBENZAPRINE HCL 10 MG TABS 336431 CYCLOBENZAPRINE HCL Inactive NAVANE 10 MG CAPS 1/2 tablet twice a day NAVANE 10 MG CAPS THIOTHIXENE Inactive DOXEPIN HCL 10 MG CAPS Take 1 tablet by mouth daily DOXEPIN HCL 10 MG CAPS 9108037 DOXEPIN HCL Inactive HYDROCODONE-ACETAMINOPHEN 7.5-325 MG TABS 1 four times a day as needed for pain HYDROCODONE-ACETAMINOPHEN 7.5-325 MG TABS 148751 HYDROCODONE-ACETAMINOPHEN Inactive NIACIN CR 500 MG CR-TABS 2 qHS NIACIN CR 500 MG CR- TABS NIACIN Inactive ORPHENADRINE CITRATE ER 100 MG [id number] 1 every 12 hr. as needed ORPHENADRINE CITRATE ER 100 MG [id number]-OEK ORPHENADRINE CITRATE Inactive ACETAMINOPHEN 500 MG TABS 2 Q 6 hr. PRN ACETAMINOPHEN 500 MG TABS 789960 ACETAMINOPHEN Inactive SAPHRIS 5 MG SUBL by mouth twice a day SAPHRIS 5 MG SUBL ASENAPINE MALEATE Inactive NIACIN ER 500 MG CR-TABS 4 qHS (for triglycerides) NIACIN ER 500 MG CR-TABS NIACIN Inactive IBUPROFEN 200 MG TABS 1 Q 6 hr. PRN IBUPROFEN 200 MG TABS 613616 IBUPROFEN Inactive FLUTICASONE PROPIONATE 50 MCG/ACT SUSP 2 sprays each nostril qDay x 30 days FLUTICASONE PROPIONATE 50 MCG/ACT SUSP 567504 FLUTICASONE PROPIONATE Inactive EQL TRUETEST TEST STRP Test blood sugar TID EQL TRUETEST TEST STRP GLUCOSE BLOOD Inactive TERESE CONTOUR TEST STRP monitor blood sugars 3x/day TERESE CONTOUR TEST STRP GLUCOSE BLOOD Inactive DETROL LA 4 MG RR72A-HWV Take 1 tablet by mouth daily DETROL LA 4 MG GR69K-YXW TOLTERODINE TARTRATE Inactive ZYPREXA 7.5 MG TABS 1 at HS ZYPREXA 7.5 MG TABS 633060 OLANZAPINE Inactive THIOTHIXENE 5 MG CAPS by mouth twice a day THIOTHIXENE 5 MG CAPS 602414 THIOTHIXENE Inactive UROXATRAL 10 MG [id number] Take 1 tablet by mouth daily UROXATRAL 10 MG [id number] ALFUZOSIN HCL Inactive ACYCLOVIR 400 MG ORAL TABS 1 pill three times daily x 5 days, for cold sore outbreak ACYCLOVIR 400 MG ORAL TABS 133746 ACYCLOVIR Inactive TRUETEST TEST STRP check sugars 4x/day TRUETEST TEST STRP GLUCOSE BLOOD Inactive HUMALOG 100 UNIT/ML SOLN Take 20 units with breakfast, 10u with lunch and suppetr. HUMALOG 100 UNIT/ML SOLN INSULIN LISPRO ( HUMAN) Inactive CYCLOBENZAPRINE HCL 10 MG TABS 1 tablet by mouth three times daily, scheduled CYCLOBENZAPRINE HCL 10 MG TABS 659232 CYCLOBENZAPRINE HCL Inactive ACCU-CHEK ROSA INVITR STRP use strips with device to check blood sugars 3 times daily ACCU-CHEK ROSA INVITR STRP GLUCOSE BLOOD Inactive ACCU-CHEK ROSA UZMA Use device to check blood sugars ACCU-CHEK ROSA UZMA BLOOD GLUCOSE MONITORING SUPPL Inactive FLUVOXAMINE MALEATE 100 MG ORAL TABS Take 1/2 tab at noon FLUVOXAMINE MALEATE 100 MG ORAL TABS 480161 FLUVOXAMINE MALEATE Inactive FLUVOXAMINE MALEATE 100 MG TABS Take one (1) tablet by mouth am, 1/2 at noon FLUVOXAMINE MALEATE 100 MG TABS 605099 FLUVOXAMINE MALEATE Inactive BACTROBAN 2 % CREAM Apply to affected area BID for up to 10 days BACTROBAN 2 % CREAM 991082 MUPIROCIN CALCIUM Inactive NOVOFINE 32G X 6 MM MISC use one four times per day NOVOFINE 32G X 6 MM MISC INSULIN PEN NEEDLE Inactive TRAZODONE HCL 100 MG ORAL TABS 1 tab by mouth for sleep TRAZODONE HCL 100 MG ORAL TABS 197006 TRAZODONE HCL Inactive LOVAZA 1 GM CAPS 4 daily (for triglycerides) LOVAZA 1 GM CAPS 356790 BIGXX-5-ORIT ETHYL ESTERS Inactive METFORMIN HCL ER 500 MG OK90A-LNE Take three tablets by mouth everyday METFORMIN HCL ER 500 MG NE70L-GRH METFORMIN HCL Inactive METOPROLOL SUCCINATE 100 MG IF15D-UWC 1 by mouth daily for blood pressure METOPROLOL SUCCINATE 100 MG WT41J-YOW METOPROLOL SUCCINATE Inactive AMITIZA 24 MCG ORAL CAPS Take one capsule BID for constipation. AMITIZA 24 MCG ORAL CAPS LUBIPROSTONE Inactive TOLTERODINE TARTRATE 2 MG TABS 1 pill twice daily, for bladder TOLTERODINE TARTRATE 2 MG TABS 863318 TOLTERODINE TARTRATE Inactive COLACE 100 MG CAPS 1 pill by mouth twice daily, for constipation COLACE 100 MG CAPS 5695167 DOCUSATE SODIUM Inactive CEFDINIR 300 MG CAPS by mouth twice a day CEFDINIR 300 MG CAPS 492152 CEFDINIR Inactive AZITHROMYCIN 500 MG SOLR 1 po q day AZITHROMYCIN 500 MG SOLR 81651834864 AZITHROMYCIN Inactive AMOXICILLIN 500 MG CAPS 2 po BID x 10 days AMOXICILLIN 500 MG CAPS 021014 AMOXICILLIN Inactive PENICILLIN V POTASSIUM 500 MG TABS 1 pill by mouth three times daily PENICILLIN V POTASSIUM 500 MG TABS 982380 PENICILLIN V POTASSIUM Inactive KEFLEX 500 MG CAP 1 po BID x 7 days KEFLEX 500 MG CAP 564102 CEPHALEXIN Inactive Immunizations Vaccine Administration Date Value [...] Fluvirin, Fluarix, Agriflu(>=18 yo)) Fluzone (>3 yrs.) [[id number]] Influenza, seasonal, injectable pneumococcal immunization administered Pneumovax [...] E&M - 3141-9 242.6 [lb_av] Weight Measured Diagnostic Results Date Name Value Unit Range Description Lab Report: CBC W/DIFF, Basic Metabolic Panel - Chemistry sodium, serum 137 mmol/L 093-859 9064/10/12 potassium, serum 4.8 mmol/L 3.5-5.2 chloride, serum 102 mmol/L 98-107 carbon dioxide, venous blood 27.6 mmol/L 21.0-32.0 blood glucose 168 mg/dL 65-110 calcium, serum 9.0 mg/dL 8.5-10.1 urea nitrogen, blood 15 mg/dL 7-18 creatinine, serum 1.04 mg/dL 0.55-1.30 sodium, serum 138 mmol/L 190-237 5224/11/11 potassium, serum 4.7 mmol/L 3.5-5.2 chloride, serum [...] % 11.6-14.8 platelet count 240 10^3/MM^3 10*3/mm3 945-207 8318/11/11 leukocyte count, blood 9.6 10^3/MM^3 10*3/mm3 4.6-10.2 [...] 6.1 % 4.3-6.0 Lab Report: Lipid Panel, Prostatic Specific Ag, MICROALBUMIN, Uric Acid - Chemistry albumin/creatinine ratio, urine < 30 mg/g mg/g{creat} 0-29 uric acid, serum 4.7 mg/dL 2.6-7.2 cholesterol, serum 142 mg/dL 734-163 8351/06/26 triglyceride, serum, fasting 272 mg/dL 30-200 HDL [...] negative Encounters Code Encounter Date Provider Facility CPT-42791 Level 3 Est. Patient 16:27:51 CDT Mima Erazo [facility]-52409 Level 3 Est. Patient 14:39:00 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 Vanessa Hickey MD [facility]-34254 Level 2 Est. Patient 18:43:34 CDT Mima Erazo [facility] CPT-09608 Level 3 Est. Patient 16:22:09 CDT Cherelle Avila [facility] CPT-34396 Level 4 Est. Patient 17:55:14 CDT Mima Erazo [facility]-64874 Level 2 Est. Patient 17:13:21 CDT Alina Castaneda MD [facility]-07667 Level 3 Est. Patient 14:46:15 CDT Vanessa Hickey MD [facility]-72440 Level 3 Est. Patient 09:34:56 CDT Alina Castaneda MD [facility]28517 Level 3 Est. Patient 21:40:19 CDT Mima Erazo [facility]-61591 Level 3 Est. Patient 09:26:40 CDT Marvel Charles [facility]-96758 Level 3 Est. Patient 12:36:43 CDT Vanessa Hickey MD [facility]-64067 Level 3 Est. Patient 12:57:49 CDT Vanessa Hickey MD [facility]-00481 Level 3 Est. Patient 00:28:25 CDT Alina Castaneda MD [facility]14081 Level 2 Est. Patient 12:52:14 CDT Alina Castaneda MD [facility]42428 Level 3 Est. Patient 11:51:18 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 Alina Castaneda MD [facility]-09463 Level 3 Est. Patient 10:09:22 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 Alina Castaneda MD [facility]-19869 Level 3 Est. Patient 14:36:26 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 Marvel Charles [facility]-58412 Level 3 Est. Patient 13:34:47 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 Alina Castaneda MD [facility]-18032 Level 3 Est. Patient 19:52:08 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 Alina Castaneda MD [facility]-83525 Level 3 Est. Patient 10:01:51 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 Marvel Charles [facility]-10288 Level 3 Est. Patient 21:54:06 CDT Vanessa Hickey MD [facility]-68828 Level 3 Est. Patient 08:54:46 CDT Alina Castaneda MD [facility]-69616 Level 3 Est. Patient 09:32:11 CDT Marvel Charles [facility]-67175 Level 3 Est. Patient 12:02:49 CDT Alina Castaneda MD [facility]-81303 Level 3 Est. Patient 19:17:33 CDT Alina Castaneda MD [facility]-08162 Level 3 Est. Patient 13:19:10 CDT Marvel Charles [facility]-82305 Level 3 Est. Patient 08:20:05 CDT Alina Castaneda MD [facility]48050 Level 3 Est. Patient 15:17:18 CDT Alina Castaneda MD [facility]-04157 Level 3 Est. Patient 14:25:36 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 Marvel Charles [facility]-68862 Level 3 Est. Patient 10:09:15 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 Marvel Charles [facility] CPT-66926 Level 3 Est. Patient 21:28:43 CDT Alina Castaneda MD [facility]-68047 Level 3 Est. Patient 15:20:11 CDT Marvel Thurstonestela [facility] CPT-99491 Level 4 Est. Patient 19:08:12 CDT Alina Castaneda MD [facility] CPT-25730 Level 3 Est. Patient 15:06:39 CDT Marvel Thurstonestela [facility] CPT-75341 Level 4 Est. Patient 17:48:15 CDT Alina Castaneda MD [facility]-65778 Level 3 Est. Patient 14:53:49 CDT Alina Castaneda MD [facility] CPT-09857 Level 3 Est. Patient 09:35:16 CDT Alina Castaneda MD [facility]-47549 Level 3 Est. Patient 12:23:22 CDT Alina Castaneda MD [facility] CPT-06160 Level 3 Est. Patient 16:19:15 CDT Alina Castaneda MD [facility] CPT-67927 Level 3 Est. Patient 21:39:56 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 Alina Castaneda MD [facility] CPT-57898 Level 4 Est. Patient 14:12:56 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 Alina Castaneda MD [facility]-15389 Level 2 Est. Patient 15:34:57 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 Ailna Castaneda MD [facility] CPT-75037 Level 3 Est. Patient 12:17:04 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 Alina Castaneda MD [facility]-09117 Level 3 Est. Patient 09:18:18 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 Brookslashondanivia Araceli [facility]-55257 Level 2 Est. Patient 21:50:24 CDT Alina Castaneda MD [facility]99602 Level 3 Est. Patient 09:17:28 CDT Marvel Charles [facility]-09264 Level 4 Est. Patient 18:54:02 CDT Alina Castaneda MD [facility]75637 Level 3 Est. Patient 10:47:10 CDT Alina Castaneda MD [facility]00481 Level 3 Est. Patient 09:22:20 CDT Brookslahsondanivia Araceli [facility]-53579 Level 3 Est. Patient 16:39:43 CDT Brooksjohn Charles [facility]-85616 Level 3 Est. Patient 16:05:16 CDT Alina Castaneda MD [facility]98091 Level 3 Est. Patient 00:29:15 CDT Alina Castaneda MD [facility]76563 Level 3 Est. Patient 10:49:22 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 [facility] Level 3 Est. Patient 21:30:19 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 Alina Castaneda MD [facility]-[id number] Level 4 Est. Patient 17:04:11 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 [id number] Level 3 Est. Patient 15:34:11 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 [facility]-[id number] Level 2 Est. Patient 12:51:58 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 Alina Castaneda MD PhD [facility] CPT-93312 Level 3 Est. Patient 13:20:01 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 Alina Castaneda MD PhD [facility] CPT-65589 Level 3 Est. 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
--- OUTSIDE RECORDS SUMMARY | 2018-07-02 14:33 | XMS REPORT | Clinical Summary ---
Author Author Admin, TERELL Organization [facility] Address Unknown Phone Unavailable Allergies, [...] mellitus, type II, uncontrolled 250.02 Inactive Alina aCstaneda MD PhD Diabetes mellitus without mention of 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 Erazo MILL LABORER Benign paroxysmal positional vertigo Vertigo, benign paroxysmal position 386.11 Inactive Mima Erazo MILL LABORER Benign paroxysmal positional vertigo High-risk sexual behavior V69.2 Active Alina Castaneda MD PhD High-risk sexual behavior Erectile dysfunction 302.72 Active Alina Castaneda MD PhD Psychosexual dysfunction with inhibited sexual excitement Constipation 564.00 Active Alina Castaneda MD PhD Constipation, unspecified Skin lesion 709.9 Active Alina Castaneda MD PhD Unspecified disorder of skin and subcutaneous tissue Malaise and fatigue 780.79 Active Cherelle Speaks MILL LABORER Other malaise and fatigue Diarrhea 787.91 Active Cherelle Speaks MILL LABORER Diarrhea PHARYNGITIS 462 Active Cherelle Speaks MILL LABORER Acute pharyngitis Colitis 558.9 Active Mima Erazo MILL LABORER Other and unspecified noninfectious gastroenteritis and colitis WOUND, OPEN, NOSE ICD-873.20 Inactive Alina Castaneda MD PhD DIABETES, TYPE 2 ICD-250.00 Inactive Alina Castaneda MD PhD HYPERTENSION ICD-401.9 Inactive Alina Castaneda MD PhD URI ICD-465.9 Inactive Alina Castaneda MD PhD CHEST PAIN ICD-786.50 Inactive Alina Castaneda MD PhD FH STROKE ICD-V17.1 Inactive Marvel Charles CSR TECHNICIAN FATIGUE ICD-780.79 Inactive Alina Castaneda MD [...] LANCETS 30G MISC 3 a day LANCETS 26310898213 Active Marvel MARROQUIN Active TOLTERODINE TARTRATE 2 MG TABS 1 pill twice daily, for bladder TOLTERODINE TARTRATE 42121549025 No Longer Active Vanessa Hickey MD Active AMITIZA 24 MCG ORAL CAPS Take one capsule BID for constipation. LUBIPROSTONE 26375839746 No Longer Active Vanessa Hickey MD Active LOMOTIL 2.5-0.025 MG ORAL TABS take 1-2 tabs PO after each stool, no more than 8 in 24 hours DIPHENOXYLATE-ATROPINE 09626906581 Active Grace ROJAS Active FLUVOXAMINE MALEATE 100 MG ORAL TABS take one tab every AM et HS, and take 1/ 2 tab at noon FLUVOXAMINE MALEATE 23652112678 Active Grace ROJAS Active METOPROLOL SUCCINATE 100 MG [id number] 1 by mouth daily for blood pressure METOPROLOL SUCCINATE 20608689681 No Longer Active Grace ROJAS Active METFORMIN HCL ER 500 MG CU64A-FLH Take three tablets by mouth everyday METFORMIN HCL 05595931683 No Longer Active Grace Azam RMA Active LOVAZA 1 GM CAPS 4 daily (for triglycerides) OMEGA-3- ACID ETHYL ESTERS 56682601163 No Longer Active Grace Azam RMA Active TRAZODONE HCL 100 MG ORAL TABS 1 tab by mouth for sleep TRAZODONE HCL 34890130271 No Longer Active Grace Azam RMA Active NOVOFINE 32G X 6 MM MISC use one four times per day INSULIN PEN NEEDLE 96207517657 No Longer Active Grace Azam RMA Active BACTROBAN 2 % CREAM Apply to affected area BID for up to 10 days MUPIROCIN CALCIUM 62165709604 No Longer Active Grace Azam RMA Active ZOFRAN 4 MG TABS 1 po q4hr PRN [place] ONDANSETRON HCL 10523954417 Active Salina Emely RMA Active KEFLEX 500 MG CAP 1 po BID x 7 days CEPHALEXIN 06858451787 No Longer Active Cherelle Felixs MILL LABORER Active FLUVOXAMINE MALEATE 100 MG TABS Take one (1) tablet by mouth am, 1/2 at noon FLUVOXAMINE MALEATE 08909017661 No Longer Active Mima Erazo APRN Active CORICIDIN HBP CONGESTION/COUGH 10-200 MG ORAL CAPS Take as directed on box as needed for cold/flu symptoms DEXTROMETHORPHAN-GUAIFENESIN 04779835248 Active Cherelle Speaks MILL LABORER Active OMEGA-3 300 MG ORAL CAPS 4 caps by mouth daily OMEGA-3 FATTY ACIDS 20459290302 Active Cherelle Speaks MILL LABORER Active FLUVOXAMINE MALEATE 100 MG ORAL TABS Take 1/2 tab at noon FLUVOXAMINE MALEATE 13806062161 No Longer Active Cherelle Speaks MILL LABORER Active [facility] E[facility] DROPS 0.4-0.3 % OPHTH SOLN POLYETHYL GLYCOL-PROPYL GLYCOL 89211226983 Active Mima Yokum MILL LABORER Active CLONAZEPAM 1 MG TABS 1/2 pill by mouth three times daily CLONAZEPAM 82861696392 Active Alina Castaneda MD PhD Active MIRALAX POWD 17g by mouth daily, for constipation POLYETHYLENE GLYCOL 3350 37614711429 Active Alina Castaneda MD PhD Active HYDROCODONE-ACETAMINOPHEN 5-325 MG TABS 2 tabs by mouth three times daily for pain HYDROCODONE-ACETAMINOPHEN 25142243551 Active Mima Erazo MILL LABORER Active HUMALOG KWIKPEN 100 UNIT/ML SC SOPN 20 units with breakfast, 10 units with lunch, 10 units with dinner, for diabetes INSULIN LISPRO (HUMAN ) 43340196282 Active Alina Castaneda MD PhD Active LEVEMIR FLEXTOUCH 100 UNIT/ML SC SOPN 70 units SQ each evening, for diabetes INSULIN DETEMIR 47212960322 Active Alina Castaneda MD PhD Active LATUDA 120 MG ORAL TABS 1 pill by mouth nightly LURASIDONE HCL 65135639099 Active Alina Castaneda MD PhD Active COLACE 100 MG CAPS 1 pill by mouth twice daily, for constipation DOCUSATE SODIUM 81969137138 Active Alina Castaneda MD PhD Active TRUETEST TEST STRP check blood sugars 3x/day GLUCOSE BLOOD 43473755904 Active Marvel MARROQUIN Active ACCU-CHEK ROSA UZMA Use device to check blood sugars BLOOD GLUCOSE MONITORING SUPPL 10988322348 No Longer Active Marvel MARROQUIN Active ACCU-CHEK ROSA INVITR STRP use strips with device to check blood sugars 3 times daily GLUCOSE BLOOD 79536666190 No Longer Active Marvel MARROQUIN Active VERAPAMIL HCL ER 180 MG ORAL CR-TABS 1 pill by mouth twice daily, for migraine prevention VERAPAMIL HCL 57683540876 Active Alina Castaneda MD PhD Active CYCLOBENZAPRINE HCL 10 MG TABS 1 tablet by mouth three times daily, scheduled CYCLOBENZAPRINE HCL 32974576511 No Longer Active Alina Castaneda MD PhD Active HUMALOG 100 UNIT/ML SOLN Take 20 units with breakfast, 10u with lunch and suppetr. INSULIN LISPRO (HUMAN) 41064144257 No Longer Active Alina Castaneda MD PhD Active TRUETEST TEST STRP check sugars 4x/day GLUCOSE BLOOD 43891688963 No Longer Active Alina Castaneda MD PhD Active MORPHINE SULFATE 30 MG TABS 1 pill by mouth twice daily, for pain MORPHINE SULFATE 68786242590 Active Mima Erazo MILL LABORER Active ACYCLOVIR 400 MG ORAL TABS 1 pill three times daily x 5 days, for cold sore outbreak ACYCLOVIR 11088265150 No Longer Active Alina Castaneda MD PhD Active PENICILLIN V POTASSIUM 500 MG TABS 1 pill by mouth three times daily PENICILLIN V POTASSIUM 39406237313 No Longer Active Alina Castaneda MD PhD Active UROXATRAL 10 MG [id number] Take 1 tablet by mouth daily ALFUZOSIN HCL 78916075666 No Longer Active Alina Castaneda MD PhD Active THIOTHIXENE 5 MG CAPS by mouth twice a day THIOTHIXENE 60301099232 No Longer Active Alina Castaneda MD PhD Active ZYPREXA 7.5 MG TABS 1 at HS OLANZAPINE 43503377552 No Longer Active Alina Castaneda MD PhD Active BD INSULIN SYRINGE 28G X 1/2" 1 ML MISC 1 four times per day INSULIN SYRINGE-NEEDLE U-100 51801106988 Active [facility] Active DETROL LA 4 MG [id number]-OUA Take 1 tablet by mouth daily TOLTERODINE TARTRATE 97401017569 No Longer Active Alina Castaneda MD PhD Active TERESE CONTOUR TEST STRP monitor blood sugars 3x/day GLUCOSE BLOOD 33697246523 No Longer Active Alina Castaneda MD PhD Active EQL TRUETEST TEST STRP Test blood sugar TID GLUCOSE BLOOD 97149925147 No Longer Active Alina Castaneda MD PhD Active FLUTICASONE PROPIONATE 50 MCG/ACT SUSP 2 sprays each nostril qDay x 30 days FLUTICASONE PROPIONATE 48937394119 No Longer Active Alina Castaneda MD PhD Active IBUPROFEN 200 MG TABS 1 Q 6 hr. PRN IBUPROFEN 03405956731 No Longer Active Alina Castaneda MD PhD Active NIACIN ER 500 MG CR-TABS 4 qHS (for triglycerides) NIACIN 05982980668 No Longer Active Alina Castaneda MD PhD Active ALFUZOSIN HCL ER 10 MG [id number]-JOI 1 tablet daily ALFUZOSIN HCL 85808510028 Active Vanessa Hickey MD Active SAPHRIS 5 MG SUBL by mouth twice a day ASENAPINE MALEATE 90760995648 No Longer Active Mallashondaeh Ziglari CSR TECHNICIAN Active ACETAMINOPHEN 500 MG TABS 2 Q 6 hr. PRN ACETAMINOPHEN 29546129287 No Longer Active Maliheh Ziglari CSR TECHNICIAN Active ORPHENADRINE CITRATE ER 100 MG BG63S-UPA 1 every 12 hr. as needed ORPHENADRINE CITRATE 17014882011 No Longer Active Alina Castaneda MD PhD Active NIACIN CR 500 MG CR-TABS 2 qHS NIACIN 04420140024 No Longer Active Alina Castaneda MD PhD Active AMOXICILLIN 500 MG CAPS 2 po BID x 10 days AMOXICILLIN 04482784164 No Longer Active Alina Castaneda MD PhD Active HYDROCODONE-ACETAMINOPHEN 7.5-325 MG TABS 1 four times a day as needed for pain HYDROCODONE-ACETAMINOPHEN 64129638810 No Longer Active Alina Castaneda MD PhD Active DOXEPIN HCL 10 MG CAPS Take 1 tablet by mouth daily DOXEPIN HCL 85415330030 No Longer Active Salina ROJAS Active NAVANE 10 MG CAPS 1/2 tablet twice a day THIOTHIXENE No Longer Active Salina ROJAS Active CYCLOBENZAPRINE HCL 10 MG TABS 1/2 tablet by mouth every 8 hours as needed for muscle spasms CYCLOBENZAPRINE HCL 38867053167 No Longer Active Alina Castaneda MD PhD Active BACTROBAN 2 % CREAM apply to ear and nose twice daily MUPIROCIN CALCIUM 39084922581 No Longer Active Alina Castaneda MD PhD Active HYDROCODONE-ACETAMINOPHEN 5-325 MG TABS take one tablet by mouth every four hours as needed for pain HYDROCODONE-ACETAMINOPHEN 00203957546 No Longer Active Alina Castaneda MD PhD Active ZOLPIDEM TARTRATE 10 MG TABS take at bedtime ZOLPIDEM TARTRATE 72327059526 Active Alina Castaneda MD PhD Active ZYPREXA 5 MG TABS take one tablet by mouth every evening OLANZAPINE 44529475590 No Longer Active Alina Castaneda MD PhD Active ALBUTEROL SULFATE 0.083 % NEBU SOLN one vial per nebulizer TID and PRN cough/ soa ALBUTEROL SULFATE 85095050813 No Longer Active Alina Castaneda MD PhD Active GUAIFENESIN 600 MG [id number] 1 tablet by mouth twice daily if needed for cough GUAIFENESIN 81317834108 No Longer Active Marvel MARROQUIN Active AZITHROMYCIN 500 MG SOLR 1 po q day AZITHROMYCIN 83268262785 No Longer Active Alina Castaneda MD PhD Active PROMETHAZINE-CODEINE 6.25-10 MG/5ML SYRP 1 tsp po q 6 hours prn cough PROMETHAZINE-CODEINE 91870662488 No Longer Active Alina Castaneda MD PhD Active CEFDINIR 300 MG CAPS by mouth twice a day CEFDINIR 07885625152 No Longer Active Alina Castaneda MD PhD Active METFORMIN HCL 500 MG US19X-WRZ Take 3 tablets by mouth everyday METFORMIN HCL 26116142188 No Longer Active Alina Castaneda MD PhD Active LEVEMIR 100 UNIT/ML SOLN 90 units SQ qHS INSULIN DETEMIR 66886604154 No Longer Active Marvel MARROQUIN Active TOPROL XL 100 MG JC66A-JSD 1 @ HS METOPROLOL SUCCINATE 33247208273 No Longer Active Marvel MARROQUIN Active ALLOPURINOL 300 MG TABS Take one by mouth daily ALLOPURINOL 65402421132 Active Alina Castaneda MD PhD Active ZYPREXA 10 MG TABS Take one by mouth daily OLANZAPINE 37896308797 No Longer Active Alina Castaneda MD PhD Active NOVOLOG 100 UNIT/ML SOLN 40 units with every meal INSULIN ASPART 96923191063 No Longer Active Alina Castaneda MD PhD Active VERAPAMIL HCL CR 120 MG TAB CR 1 qPM VERAPAMIL HCL 53441235997 No Longer Active Salina ROJAS Active ZYPREXA 15 MG TABS Take 1 tablet by mouth daily OLANZAPINE 86304562718 No Longer Active Marvel MARROQUIN Active LISINOPRIL 20 MG TABS 1 BID LISINOPRIL 37433836981 Active Alina Castaneda MD PhD Active ALBUTEROL SULFATE (2.5 MG/3ML) 0.083% NEBU 1 neb tid and prn cough ALBUTEROL SULFATE 44011635855 No Longer Active Alina Castaneda MD PhD Active TRAVATAN Z 0.004 % SOLN 1 gtt each eye daily TRAVOPROST 18375072650 Active CRYSTAL Suarez Active LANTUS 100 UNIT/ML SOLN 60 units sq q hs INSULIN GLARGINE 75780997769 No Longer Active CRYSTAL Suarez Active ALBUTEROL SULFATE (2.5 MG/3ML) 0.083% NEBU 1 neb tid and prn cough ALBUTEROL SULFATE (2.5 MG/3ML) 0.083% NEBU 859828 ALBUTEROL SULFATE Inactive ZYPREXA 15 MG TABS Take 1 tablet by mouth daily ZYPREXA 15 MG TABS 363531 OLANZAPINE Inactive VERAPAMIL HCL CR 120 MG TAB CR 1 qPM VERAPAMIL HCL CR 120 MG TAB CR VERAPAMIL HCL Inactive ZYPREXA 10 MG TABS Take one by mouth daily ZYPREXA 10 MG TABS 139416 OLANZAPINE Inactive TOPROL XL 100 MG [id number] 1 @ HS TOPROL XL 100 MG [id number] METOPROLOL SUCCINATE Inactive LEVEMIR 100 UNIT/ML SOLN 90 units SQ qHS LEVEMIR 100 UNIT/ML SOLN INSULIN DETEMIR Inactive PROMETHAZINE-CODEINE 6.25-10 MG/5ML SYRP 1 tsp po q 6 hours prn cough PROMETHAZINE-CODEINE 6.25-10 MG/5ML SYRP 675490 PROMETHAZINE- CODEINE Inactive GUAIFENESIN 600 MG QD48F-[id number] 1 tablet by mouth twice daily if needed for cough GUAIFENESIN 600 MG [id number]-CUF GUAIFENESIN Inactive ALBUTEROL SULFATE 0.083 % NEBU SOLN one vial per nebulizer TID and PRN cough/ soa ALBUTEROL SULFATE 0.083 % NEBU SOLN 228245 ALBUTEROL SULFATE Inactive ZYPREXA 5 MG TABS take one tablet by mouth every evening ZYPREXA 5 MG TABS 502801 OLANZAPINE Inactive HYDROCODONE-ACETAMINOPHEN 5-325 MG TABS take one tablet by mouth every four hours as needed for pain HYDROCODONE-ACETAMINOPHEN 5-325 MG TABS 000248 HYDROCODONE-ACETAMINOPHEN Inactive BACTROBAN 2 % CREAM apply to ear and nose twice daily BACTROBAN 2 % CREAM 261961 MUPIROCIN CALCIUM Inactive CYCLOBENZAPRINE HCL 10 MG TABS 1/2 tablet by mouth every 8 hours as needed for muscle spasms CYCLOBENZAPRINE HCL 10 MG TABS 641452 CYCLOBENZAPRINE HCL Inactive NAVANE 10 MG CAPS 1/2 tablet twice a day NAVANE 10 MG CAPS THIOTHIXENE Inactive DOXEPIN HCL 10 MG CAPS Take 1 tablet by mouth daily DOXEPIN HCL 10 MG CAPS 1901116 DOXEPIN HCL Inactive HYDROCODONE-ACETAMINOPHEN 7.5-325 MG TABS 1 four times a day as needed for pain HYDROCODONE-ACETAMINOPHEN 7.5-325 MG TABS 098810 HYDROCODONE-ACETAMINOPHEN Inactive NIACIN CR 500 MG CR-TABS 2 qHS NIACIN CR 500 MG CR- TABS NIACIN Inactive ORPHENADRINE CITRATE ER 100 MG [id number] 1 every 12 hr. as needed ORPHENADRINE CITRATE ER 100 MG [id number]-XDC ORPHENADRINE CITRATE Inactive ACETAMINOPHEN 500 MG TABS 2 Q 6 hr. PRN ACETAMINOPHEN 500 MG TABS 029475 ACETAMINOPHEN Inactive SAPHRIS 5 MG SUBL by mouth twice a day SAPHRIS 5 MG SUBL ASENAPINE MALEATE Inactive NIACIN ER 500 MG CR-TABS 4 qHS (for triglycerides) NIACIN ER 500 MG CR-TABS NIACIN Inactive IBUPROFEN 200 MG TABS 1 Q 6 hr. PRN IBUPROFEN 200 MG TABS 941285 IBUPROFEN Inactive FLUTICASONE PROPIONATE 50 MCG/ACT SUSP 2 sprays each nostril qDay x 30 days FLUTICASONE PROPIONATE 50 MCG/ACT SUSP 329433 FLUTICASONE PROPIONATE Inactive EQL TRUETEST TEST STRP Test blood sugar TID EQL TRUETEST TEST STRP GLUCOSE BLOOD Inactive TERESE CONTOUR TEST STRP monitor blood sugars 3x/day TERESE CONTOUR TEST STRP GLUCOSE BLOOD Inactive DETROL LA 4 MG [id number] Take 1 tablet by mouth daily DETROL LA 4 MG [id number] TOLTERODINE TARTRATE Inactive ZYPREXA 7.5 MG TABS 1 at HS ZYPREXA 7.5 MG TABS 130797 OLANZAPINE Inactive THIOTHIXENE 5 MG CAPS by mouth twice a day THIOTHIXENE 5 MG CAPS 789674 THIOTHIXENE Inactive UROXATRAL 10 MG QB30R-IMD Take 1 tablet by mouth daily UROXATRAL 10 MG PA08Z-YUR ALFUZOSIN HCL Inactive ACYCLOVIR 400 MG ORAL TABS 1 pill three times daily x 5 days, for cold sore outbreak ACYCLOVIR 400 MG ORAL TABS 987154 ACYCLOVIR Inactive TRUETEST TEST STRP check sugars 4x/day TRUETEST TEST STRP GLUCOSE BLOOD Inactive HUMALOG 100 UNIT/ML SOLN Take 20 units with breakfast, 10u with lunch and suppetr. HUMALOG 100 UNIT/ML SOLN INSULIN LISPRO ( HUMAN) Inactive CYCLOBENZAPRINE HCL 10 MG TABS 1 tablet by mouth three times daily, scheduled CYCLOBENZAPRINE HCL 10 MG TABS 113184 CYCLOBENZAPRINE HCL Inactive ACCU-CHEK ROSA INVITR STRP use strips with device to check blood sugars 3 times daily ACCU-CHEK ROSA INVITR STRP GLUCOSE BLOOD Inactive ACCU-CHEK ROSA UZMA Use device to check blood sugars ACCU-CHEK ROSA UZMA BLOOD GLUCOSE MONITORING SUPPL Inactive FLUVOXAMINE MALEATE 100 MG ORAL TABS Take 1/2 tab at noon FLUVOXAMINE MALEATE 100 MG ORAL TABS 987300 FLUVOXAMINE MALEATE Inactive FLUVOXAMINE MALEATE 100 MG TABS Take one (1) tablet by mouth am, 1/2 at noon FLUVOXAMINE MALEATE 100 MG TABS 273152 FLUVOXAMINE MALEATE Inactive BACTROBAN 2 % CREAM Apply to affected area BID for up to 10 days BACTROBAN 2 % CREAM 757251 MUPIROCIN CALCIUM Inactive NOVOFINE 32G X 6 MM MISC use one four times per day NOVOFINE 32G X 6 MM MISC INSULIN PEN NEEDLE Inactive TRAZODONE HCL 100 MG ORAL TABS 1 tab by mouth for sleep TRAZODONE HCL 100 MG ORAL TABS 284624 TRAZODONE HCL Inactive LOVAZA 1 GM CAPS 4 daily (for triglycerides) LOVAZA 1 GM CAPS 065884 QSJND-2-MMNM ETHYL ESTERS Inactive METFORMIN HCL ER 500 MG CG63S-SQV Take three tablets by mouth everyday METFORMIN HCL ER 500 MG CE90G-YVF METFORMIN HCL Inactive METOPROLOL SUCCINATE 100 MG PC35B-IGU 1 by mouth daily for blood pressure METOPROLOL SUCCINATE 100 MG TG89Q-JQZ METOPROLOL SUCCINATE Inactive AMITIZA 24 MCG ORAL CAPS Take one capsule BID for constipation. AMITIZA 24 MCG ORAL CAPS LUBIPROSTONE Inactive TOLTERODINE TARTRATE 2 MG TABS 1 pill twice daily, for bladder TOLTERODINE TARTRATE 2 MG TABS 247094 TOLTERODINE TARTRATE Inactive CEFDINIR 300 MG CAPS by mouth twice a day CEFDINIR 300 MG CAPS 064722 CEFDINIR Inactive AZITHROMYCIN 500 MG SOLR 1 po q day AZITHROMYCIN 500 MG SOLR 23339869397 AZITHROMYCIN Inactive AMOXICILLIN 500 MG CAPS 2 po BID x 10 days AMOXICILLIN 500 MG CAPS 862807 AMOXICILLIN Inactive PENICILLIN V POTASSIUM 500 MG TABS 1 pill by mouth three times daily PENICILLIN V POTASSIUM 500 MG TABS 840882 PENICILLIN V POTASSIUM Inactive KEFLEX 500 MG CAP 1 po BID x 7 days KEFLEX 500 MG CAP 622347 CEPHALEXIN Inactive Immunizations Vaccine Administration Date Value [...] Fluvirin, Fluarix, Agriflu(>=18 yo)) Fluzone (>3 yrs.) [[id number]] Influenza, seasonal, injectable pneumococcal immunization administered Pneumovax [...] pressure, diastolic - 8462-4 74 mm[Hg] BP gracia blood pressure, systolic - 8480-6 145 mm[Hg] [...] MICROALBUMIN - Chemistry sodium, serum 137 mmol/L 399-484 9534/05/19 potassium, serum 5.2 mmol/L 3.5-5.2 chloride, serum [...] Panel - Chemistry sodium, serum 137 mmol/L 251-153 5598/10/12 potassium, serum 4.8 mmol/L 3.5-5.2 chloride, serum 102 mmol/L 98-107 carbon dioxide, venous blood 27.6 mmol/L 21.0-32.0 blood glucose 168 mg/dL 65-110 calcium, serum 9.0 mg/dL 8.5-10.1 urea nitrogen, blood 15 mg/dL 7-18 creatinine, serum 1.04 mg/dL 0.55-1.30 sodium, serum 138 mmol/L 690-951 2585/11/11 potassium, serum 4.7 mmol/L 3.5-5.2 chloride, serum [...] % 11.6-14.8 platelet count 252 10^3/MM^3 10*3/mm3 330-816 4886/10/12 leukocyte count, blood 5.8 10^3/MM^3 10*3/mm3 4.6-10.2 [...] 240 10^3/MM^3 10*3/mm3 142-424 Lab Report: Chlamydia/GC APTIMA/88256, HIV-1/2 Agn/Dominga/64328, RPR (DX) W ... - Chemistry hepatitis B surface antigen NON-REACTIVE NON-REACTIVE Lab Report: Chlamydia/GC APTIMA/31700, HIV-1/2 Agn/Dominga/16705, RPR (DX) W ... - Lab chlamydia DNA probe NOT DETECTED NOT DETECTED Lab Report: Chlamydia/GC APTIMA/35623, HIV-1/2 Agn/Dominga/41593, RPR (DX) W ... - Microbiology Neisseria gonorrhoeae DNA probe NOT DETECTED NOT DETECTED Lab Report: Chlamydia/GC APTIMA/87912, HIV-1/2 Agn/Dominga/29760, RPR (DX) W ... - Serology rapid plasma reagin antibody titer NON-REACTIVE NON-REACTIVE Lab Report: HGBA1C - Chemistry hemoglobin A1C, blood, as % of total hemoglobin 6.1 % 4.3-6.0 Lab Report: Lipid Panel, HEPATIC PANEL, MICROALBUMIN, CBC - Chemistry albumin/creatinine ratio, urine < 30 mg/g mg/g{creat} 0-29 cholesterol, serum 131 mg/dL 126-211 5021/06/03 triglyceride, serum, fasting 383 mg/dL 30-200 HDL [...] 4.7 mg/dL 2.6-7.2 cholesterol, serum 142 mg/dL 574-486 9015/06/26 triglyceride, serum, fasting 272 mg/dL 30-200 HDL [...] negative Encounters Code Encounter Date Provider Facility [facility]-22866 Level 3 Est. Patient 14:39:00 MILLWORK ESTIMATOR Vanessa Hickey MD [facility]-42332 Level 2 Est. Patient 18:43:34 CDT Mima Erazo [facility] CPT-59446 Level 3 Est. Patient 16:22:09 CDT Cherelle Avila [facility] CPT-28362 Level 4 Est. Patient 17:55:14 CDT Mima Erazo [facility] CPT-12704 Level 2 Est. Patient 17:13:21 CDT Alina Castaneda MD PhD [facility]-48072 Level 3 Est. Patient 14:46:15 CDT Vanessa Hickey MD [facility]-54903 Level 3 Est. Patient 09:34:56 CDT Alina Castaneda MD PhD [facility]43301 Level 3 Est. Patient 21:40:19 CDT Mima Erazo [facility]02780 Level 3 Est. Patient 09:26:40 CDT Maliheh Ziglari [facility][note 3]-95664 Level 3 Est. Patient 12:36:43 CDT Vanessa Hickey MD [facility]-10690 Level 3 Est. Patient 12:57:49 CDT Vanessa Hickey MD [facility]-42963 Level 3 Est. Patient 00:28:25 CDT Alina Castaneda MD [facility]98194 Level 2 Est. Patient 12:52:14 CDT Alina Castaneda MD [facility]48813 Level 3 Est. Patient 11:51:18 MILLWORK ESTIMATOR Alina Castaneda MD [facility] [place]23427 Level 3 Est. Patient 10:09:22 MILLWORK ESTIMATOR Alina Castaneda MD [facility]92635 Level 3 Est. Patient 14:36:26 MILLWORK ESTIMATOR Marvel Charles [facility] [place]-34367 Level 3 Est. Patient 13:34:47 MILLWORK ESTIMATOR Alina Castaneda MD [facility] [place]43956 Level 3 Est. Patient 19:52:08 MILLWORK ESTIMATOR Alina Castaneda MD [facility] [place]79545 Level 3 Est. Patient 10:01:51 MILLWORK ESTIMATOR Marvel Charles [facility] [place]-79625 Level 3 Est. Patient 21:54:06 CDT Vanessa Hickey MD [facility]04222 Level 3 Est. Patient 08:54:46 CDT Alina Castaneda MD [facility] [place]71640 Level 3 Est. Patient 09:32:11 CDT Marvel Charles [facility]90988 Level 3 Est. Patient 12:02:49 CDT Alina Castaneda MD [facility] [place]19264 Level 3 Est. Patient 19:17:33 CDT Alina Castaneda MD [facility]-40729 Level 3 Est. Patient 13:19:[address] [facility] [place]-35019 Level 3 Est. Patient 08:20:05 CDT Alina Castaneda MD [facility]-86007 Level 3 Est. Patient 15:17:18 CDT Alina Castaneda MD [facility] [place]51844 Level 3 Est. Patient 14:25:36 MILLWORK ESTIMATOR Marvel Charles [facility] [place]-25594 Level 3 Est. Patient 10:09:15 MILLWORK ESTIMATOR Marvel Charles [facility] [place]-78031 Level 3 Est. Patient 21:28:43 CDT Alina Castaneda MD [facility]-59139 Level 3 Est. Patient 15:20:[address] [facility] Level 4 Est. Patient 19:08:12 CDT Alina Castaneda MD [facility]-09162 Level 3 Est. Patient 15:06:[address] [facility] [place]-23497 Level 4 Est. Patient 17:48:15 CDT Alina Castaneda MD [facility]-86621 Level 3 Est. Patient 14:53:49 CDT Alina Castaneda MD [facility]-19874 Level 3 Est. Patient 09:35:16 CDT Alina Castaneda MD [facility]-71789 Level 3 Est. Patient 12:23:22 CDT Alina Castaneda MD [facility]-71447 Level 3 Est. Patient 16:19:15 CDT Alina Castaneda MD [facility]-52417 Level 3 Est. Patient 21:39:56 MILLWORK ESTIMATOR Alina Castaneda MD [facility]-50017 Level 4 Est. Patient 14:12:56 MILLWORK ESTIMATOR Alina Castaneda MD [facility]-94511 Level 2 Est. Patient 15:34:57 MILLWORK ESTIMATOR Alina Castaneda MD [facility]-24513 Level 3 Est. Patient 12:17:04 MILLWORK ESTIMATOR Alina Castaneda MD [facility] [place]36758 Level 3 Est. Patient 09:18:18 MILLWORK ESTIMATOR Marvel Charles [facility] [place]-86717 Level 2 Est. Patient 21:50:24 CDT Alina Castaneda MD [facility]-85066 Level 3 Est. Patient 09:17:[address] [facility] [place]-36110 Level 4 Est. Patient 18:54:02 CDT Alina Castaneda MD [facility]-02341 Level 3 Est. Patient 10:47:10 CDT Alina Cast[facility] [id number] Level 3 Est. Patient 09:22:[address] [facility] [id number] Level 3 Est. Patient 16:39:[address] [facility] [id number] Level 3 Est. Patient 16:05:16 CDT Alina Castaneda MD [facility] [id number] Level 3 Est. Patient 00:29:15 CDT Alina Castaneda MD [facility] [id number] Level 3 Est. Patient 10:49:[address] [facility] Level 3 Est. Patient 21:30:19 MILLWORK ESTIMATOR Alina Castaneda MD [facility] CPT-44752 Level 4 Est. Patient 17:04:11 MILLWORK ESTIMATOR [facility] CPT-26114 Level 3 Est. Patient 15:34:11 MILLWORK ESTIMATOR [facility] [place] CPT-92142 Level 2 Est. Patient 12:51:58 MILLWORK ESTIMATOR Alina Castaneda MD [facility] CPT-56406 Level 3 Est. Patient 13:20:01 MILLWORK ESTIMATOR Alina Castaneda MD PhD [facility] CPT-71920 Level 3 Est. Patient 09:23:35 CDT Alina Castaneda MD PhD [facility] Procedures Code Procedure Name Date Entry Date Standard Description CPT-57414 Bladder Scan 14:39:01 MILLWORK ESTIMATOR CPT-TCMM Transitional Care Mgmt-Moderate 10:30:19 MILLWORK ESTIMATOR CPT-11987 Bladder Scan 12:36:44 CDT CPT-48746 Bladder Scan 21:54:06 CDT CPT-G0008 Administration of Influenza Virus Vaccine 13:05:26 CDT CPT-64377 Fluzone Quadrivalent Intramuscular Suspension 0.5 ML 13: 05:26 CDT CPT-68493 Administration single or combination vaccine inc oral 11 :49:51 CDT CPT-85480 Pneumovax 11:49:51 CDT CPT-10933 Ribs unilateral 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
--- OUTSIDE RECORDS SUMMARY | 2018-07-02 14:35 | XMS REPORT | Clinical Summary ---
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 Benign paroxysmal positional vertigo Vertigo, benign paroxysmal position 386.11 Inactive Mima Erazo MAINTENANCE PAINTER Benign paroxysmal positional vertigo High-risk sexual [...] Body Mass Index 31.0-31.9 Adult Resolved Shavonne CEDENO-C Body Mass Index 31.0-31.9, adult Dysphasia 784.59 Active Mason Loredo MD Other speech disturbance Obesity 278.00 Refinement Mason Loredo MD Obesity, unspecified Obesity Class I (BMI 30-34.9) 278.00 Active Mason Loredo MD Obesity, unspecified Insomnia 780.52 Active Shavonne CEDENO-C Insomnia, unspecified Body Mass Index 30.0-30.9 Adult Resolved Mason Loredo MD Body Mass Index 30.0-30.9, adult Weight loss 783.21 Active Shavonne CEDENO-C Loss of weight Paranoid schizophrenia, chronic 295.32 Active Shavonne Feliciano PA-C Paranoid type schizophrenia, chronic state 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 Active Shavonne Feliciano PA-C 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 438.13 Active Shavonne Feliciano PA-C 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 Muscle weakness 728.87 Active Shavonne Feliciano PA-C Muscle weakness (generalized) 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 Active Shavonne Feliciano PA-C Benign neoplasm of prostate Developmental speech and language disorder 315.39 Active Shavonne Feliciano PA-C Other developmental speech disorder Irritable bowel syndrome with diarrhea 564.1 Active Shavonne Feliciano PA-C Irritable bowel syndrome Major depressive disorder, recurrent, in partial remission 296.30 Inactive Shavonne Feliciano PA-C Major depressive disorder, recurrent episode, unspecified degree Depression, major, recurrent, severe, w/o psychotic behavior 296.33 Active Mason Loredo MD Major depressive disorder, recurrent episode, severe degree, without mention of psychotic behavior Migraine, intractable 346.91 Active Shavonne Feliciano PA-C Migraine, unspecified, with intractable migraine, so stated, without mention of status migrainosus Convulsions 780.39 Active Shavonne Feliciano PA-C Other convulsions Well Adult Exam V70.0 Active Shavonne Feliciano PA-C Routine general medical examination at a health care facility Body Mass Index 31.0-31.9 Adult Refinement Shavonne Feliciano PA-C Body Mass Index 31.0-31.9, adult BMI 32-32.9 Active Mason Loredo MD Body Mass Index 31.0-31.9, adult Insomnia 780.52 Active Shavonne Feliciano PA-C Insomnia, unspecified History of suicidal tendencies V15.89 Active Shavonne Feliciano PA-C Other specified personal history presenting hazards to health WOUND, OPEN, NOSE ICD-873.20 Inactive Alina Castaneda MD PhD ANXIETY DISORDER ICD-300.00 Inactive Shavonne Feliciano PA-C DIABETES, TYPE 2 ICD-250.00 Inactive Alina Castaneda MD PhD HYPERTENSION ICD-401.9 Inactive Alina Castaneda MD PhD URI ICD-465.9 Inactive Alina Castaneda MD PhD CHEST PAIN ICD-786.50 Inactive Alina Castaneda MD PhD ANEMIA ICD-285.9 Inactive Shavonne Feliciano PA-C 2017 FH STROKE ICD-V17.1 Inactive Marvel MENDOZAP FATIGUE ICD-780.79 Inactive Alina Castaneda MD PhD [...] Index 31.0-31.9 Adult Inactive Gabrielle Marquez MA Body Mass Index 30.0-30.9 Adult Inactive Paige Lange MA Medication List Medication Instructions Start Date Stop Date Generic Name NDC Status Provider Patient Instruction MIRALAX ORAL POWDER 17 gram by mouth once daily POLYETHYLENE GLYCOL 3350 [id number] Active Cherelle Souza RN Active CLONAZEPAM 1 MG ORAL TABLET 1 tablet by mouth three times daily CLONAZEPAM 11235082076 Active Cherelle Souza RN Active MIRALAX ORAL POWDER 17g by mouth q12h, for constipation POLYETHYLENE GLYCOL 3350 11379171168 No Longer Active Cherelle Souza RN Active LACTOBACILLUS ORAL TABLET 1 tablet by mouth at bedtime for probiotic LACTOBACILLUS 51148641449 Active Cherelle Souza RN Active D 2000 2000 UNIT ORAL TABLET 1 tablet by mouth twice daily CHOLECALCIFEROL 74428534484 Active Cherelle Souza RN Active DIVALPROEX SODIUM ER 500 MG ORAL TABLET EXTENDED RELEASE 24 HOUR 3 tablets by mouth at bedtime for Mood DIVALPROEX SODIUM 83273853835 Active Cherelle Souza RN Active GLIMEPIRIDE 4 MG ORAL TABLET 1 tablet by mouth once daily GLIMEPIRIDE 43020391968 Active Cherelle Souza RN Active VENLAFAXINE HCL ER 150 MG ORAL CAPSULE EXTENDED RELEASE 24 HOUR 1 tablet by mouth once daily VENLAFAXINE HCL 70652278084 Active Cherelle Souza RN Active RISPERDAL 2 MG ORAL TABLET Take 1 tablet by mouth three times a day RISPERIDONE 79507471213 Active Mya Ledezma MA Active [facility] MILK OF MAGNESIA 400 MG/5ML ORAL SUSPENSION 30ml by mouth bid prn MAGNESIUM HYDROXIDE 41642239912 No Longer Active Mya Ledezma MA Active [facility] MELATONIN 3 MG ORAL TABLET 1 tab nightly MELATONIN 71084574175 No Longer Active Mya Ledezma MA Active AMBIEN 10 MG ORAL TABLET 1 at night as needed for sleep ZOLPIDEM TARTRATE 21504033575 Active Mason Loredo MD Active VERAPAMIL HCL ER 180 MG ORAL TABLET EXTENDED RELEASE 1 pill by mouth twice daily, for migraine prevention VERAPAMIL HCL 10513031530 No Longer Active Mason Loredo MD Active EFFEXOR XR 150 MG ORAL CAPSULE EXTENDED RELEASE 24 HOUR 1 tab daily VENLAFAXINE HCL 77235264890 No Longer Active Mason Loredo MD Active TOPAMAX 25 MG ORAL TABLET 1 tab BID PRN TOPIRAMATE 03320789994 No Longer Active Mason Loredo MD Active LATUDA 40 MG ORAL TABLET 1.5 tab by mouth in the afternoon 05/23 LURASIDONE HCL 30672143485 No Longer Active Mason Loredo MD Active QUETIAPINE FUMARATE 100 MG ORAL TABLET 1 tab PO at HS QUETIAPINE FUMARATE 23408844883 No Longer Active Mason Loredo MD Active QUETIAPINE FUMARATE 25 MG ORAL TABLET 2 tabs BID QUETIAPINE FUMARATE 88212000842 No Longer Active Mason Loredo MD Active ATORVASTATIN CALCIUM 10 MG ORAL TABLET Take 1 tablet by mouth daily. Recheck labs in 3 months ATORVASTATIN CALCIUM 55802083717 Active Mya Ledezma MA Active VERAPAMIL HCL ER 180 MG ORAL TABLET EXTENDED RELEASE 1 tab BID VERAPAMIL HCL 18041984984 Active Shavonne Feliciano PA-C Active SEROQUEL 25 MG ORAL TABLET Take two tabs by mouth in the morning, take 4 tablets at night QUETIAPINE FUMARATE 58146845036 No Longer Active Shavonne Feliciano PA-C Active AMARYL 2 MG ORAL TABLET give 2.5 tabs PO daily GLIMEPIRIDE 26410969117 No Longer Active Shavonne Feliciano PA-C Active FENOFIBRATE 145 MG ORAL TABLET 1 tab PO in the morning FENOFIBRATE 38786465568 Active Shavonne Feliciano PA-C Active SEROQUEL 100 MG ORAL TABLET 1 tab daily QUETIAPINE FUMARATE 29348070022 No Longer Active Shavonne Feliciano PA-C Active [facility] MELATONIN 3 MG ORAL TABLET give 1 tab by mouth at HS MELATONIN 30364306686 No Longer Active Gabrielle Marquez MA Active NOVOLOG FLEXPEN 100 UNIT/ML SUBCUTANEOUS SOLUTION PEN-INJECTOR sliding scale INSULIN ASPART 23620555036 Active Gabrielle Marquez MA Active METFORMIN HCL 1000 MG ORAL TABLET 1 tab by mouth BID METFORMIN HCL 28755678919 Active Gabrielleadrienne Marquez MA Active TAMSULOSIN HCL 0.4 MG ORAL CAPSULE give 2 capsules PO each evening TAMSULOSIN HCL 72570034673 No Longer Active Gabrielleadrienne Marquez MA Active VITAMIN D 2000 UNIT ORAL CAPSULE Take one by mouth daily CHOLECALCIFEROL 43485484425 No Longer Active Gabrielleadrienne Marquez MA Active LEVEMIR 100 UNIT/ML SUBCUTANEOUS SOLUTION 10 u at bedtime INSULIN DETEMIR 78711356237 Active Gabrielle Littleananda NOEL Active TAMSULOSIN HCL 0.4 MG ORAL CAPSULE 2 every night for urine flow TAMSULOSIN HCL 27993566495 Active Gabrielle Sidneyananda NOEL Active ALIGN 4 MG ORAL CAPSULE 1 tab at hs PROBIOTIC PRODUCT 68718858818 No Longer Active Gabrielle Marquez MA Active OCEAN NASAL SPRAY SOLUTION 2 sprays in both nostrils every 8 hours as needed for dry mucous membranes SALINE SOLN 39683391888 Active Mason Loredo MD Active BETHANECHOL CHLORIDE 25 MG ORAL TABLET Take 1 tablet mouth four times a day BETHANECHOL CHLORIDE 92451865652 Active Mason Loredo MD Active [facility] LUBRICANT EYE DROPS 0.4-0.3 % OPHTHALMIC SOLUTION POLYETHYL GLYCOL-PROPYL GLYCOL 68500289991 No Longer Active Mason Loredo MD Active TYLENOL 8 HOUR 650 MG ORAL TABLET EXTENDED RELEASE 1 tab QID prn ACETAMINOPHEN 28023985588 No Longer Active Mason Loredo MD Active TIMOPTIC OCUDOSE 0.5 % OPHTHALMIC SOLUTION instill one drop into both eyes q12H TIMOLOL MALEATE 83928140134 Active Mason Loredo MD Active TRAZODONE HCL 100 MG ORAL TABLET 1 every night to prevent headaches TRAZODONE HCL 78317297443 No Longer Active Mason Loredo MD Active TRAVATAN Z 0.004 % OPHTHALMIC SOLUTION 1 drop each eye daily 2017 TRAVOPROST 31002248824 No Longer Active Mason Loredo MD Active LATUDA 60 MG ORAL TABLET 1 tab daily LURASIDONE HCL 56704358125 No Longer Active Mason Loredo MD Active MORPHINE SULFATE ER 30 MG ORAL TABLET EXTENDED RELEASE Take one capsule BID MORPHINE SULFATE 18273103145 No Longer Active Mason Loredo MD Active TRUE METRIX BLOOD GLUCOSE TEST IN VITRO STRIP Check blood sugars 3x/day. 2015 GLUCOSE BLOOD 25942048516 No Longer Active Mason Loredo MD Active TRUEPLUS LANCETS 30G 3x a day LANCETS 95358540029 No Longer Active Mason Loredo MD Active MYLANTA GAS RELIEF MAXIMUM STR 125 MG ORAL CAPSULE 30cc every 4 hours prn SIMETHICONE 52932700998 No Longer Active Mason Loredo MD Active IMODIUM A-D 2 MG ORAL TABLET 1 tab QID as needed LOPERAMIDE HCL 70279741135 No Longer Active Mason Loredo MD Active FLONASE ALLERGY RELIEF 50 MCG/ACT NASAL SUSPENSION One spray each nostril BID x 1 week then daily FLUTICASONE PROPIONATE 95042818779 No Longer Active Mason Loredo MD Active FLUVOXAMINE MALEATE 100 MG ORAL TABLET take one tab every AM et HS, and take 1 /2 tab at noon FLUVOXAMINE MALEATE 13304985551 No Longer Active Mason Loredo MD Active BD PEN NEEDLE MINI U/F 31G X 5 MM 4 a day INSULIN PEN NEEDLE 18385692678 No Longer Active Mason Loredo MD Active AMITIZA 24 MCG ORAL CAPSULE Take one capsule BID for constipation LUBIPROSTONE 21928759587 No Longer Active Mason Loredo MD Active TRUEPLUS LANCETS 30G 3 a day LANCETS 64423977769 No Longer Active Mason Loredo MD Active CORICIDIN HBP CONGESTION/COUGH 10-200 MG ORAL CAPSULE Take as directed on box as needed for cold/flu symptoms DEXTROMETHORPHAN- GUAIFENESIN 46039097613 No Longer Active Mason Loredo MD Active OMEGA-3 300 MG ORAL CAPSULE 4 caps by mouth daily OMEGA-3 FATTY ACIDS 84233218017 No Longer Active Mason Loredo MD Active HUMALOG KWIKPEN 100 UNIT/ML SUBCUTANEOUS SOLUTION PEN-INJECTOR sliding scale if needed INSULIN LISPRO (HUMAN) 90431664163 No Longer Active Mason Loredo MD Active TRUETEST TEST IN VITRO STRIP check blood sugars 3x/day GLUCOSE BLOOD 52102199440 No Longer Active Mason Loredo MD Active ALFUZOSIN HCL ER 10 MG ORAL TABLET EXTENDED RELEASE 24 HOUR 1 tablet daily ALFUZOSIN HCL 07824840183 No Longer Active Mason Loredo MD Active BD INSULIN SYRINGE 28G X 1/2" 1 ML 1 four times per day INSULIN SYRINGE-NEEDLE U-100 60154787044 No Longer Active Mason Loredo MD Active LEVEMIR FLEXTOUCH 100 UNIT/ML SUBCUTANEOUS SOLUTION PEN-INJECTOR 60 units SQ each evening, for diabetes INSULIN DETEMIR 74078699587 No Longer Active Mason Loredo MD Active LACTULOSE 20 GM/30ML ORAL SOLUTION give 30 Ml PO BID PRN LACTULOSE 14466775355 Active Mason Loredo MD Active COLACE 100 MG ORAL CAPSULE 1 tab BID PRN DOCUSATE SODIUM 60834210946 Active Mason Loredo MD Active LATANOPROST 0.005 % OPHTHALMIC SOLUTION instill 1 drop in both eyes at bed time LATANOPROST 15599362121 Active Mason Loredo MD Active IBUPROFEN 400 MG ORAL TABLET 1 tab Q6H PRN IBUPROFEN 24464343782 Active Mason Loredo MD Active FLUVOXAMINE MALEATE 50 MG ORAL TABLET 1 tab by mouth daily 04/01 FLUVOXAMINE MALEATE 89702481702 No Longer Active Mima Erazo APRN Active TRUE METRIX METER w/Device KIT Check blood sugars 3x/day BLOOD GLUCOSE MONITORING SUPPL 06996953523 Active Marvel Mackenzieglari DETONATOR MAKER Active LATUDA 60 MG ORAL TABLET Take one by mouth daily LURASIDONE HCL 31881168315 No Longer Active Mima Erazo APRN Active TRAVATAN Z 0.004 % OPHTHALMIC SOLUTION 1 gtt each eye daily TRAVOPROST 26552856316 No Longer Active Mason Loredo MD Active LISINOPRIL 20 MG ORAL TABLET 1 BID LISINOPRIL 74823420787 No Longer Active Mason Loredo MD Active ZOLPIDEM TARTRATE 10 MG ORAL TABLET take at bedtime ZOLPIDEM TARTRATE 57063684032 No Longer Active Mason Loredo MD Active HYDROCODONE-ACETAMINOPHEN 5-325 MG ORAL TABLET 2 tabs by mouth three times daily for pain HYDROCODONE-ACETAMINOPHEN 11595669832 No Longer Active Mason Loredo MD Active ZOFRAN 4 MG ORAL TABLET 1 po q4hr PRN Nausea ONDANSETRON HCL 96433018536 No Longer Active Mason Loredo MD Active LOMOTIL 2.5-0.025 MG ORAL TABLET take 1-2 tabs PO after each stool, no more than 8 in 24 hours DIPHENOXYLATE-ATROPINE 21205611531 No Longer Active Mason Loredo MD Active COLACE 100 MG ORAL CAPSULE 1 pill by mouth twice daily, for constipation 2014 DOCUSATE SODIUM 42684437795 No Longer Active Mima Yokum MAINTENANCE PAINTER Active TOLTERODINE TARTRATE 2 MG ORAL TABLET 1 pill twice daily, for bladder TOLTERODINE TARTRATE 75998138613 No Longer Active Vanessa Hickey MD Active AMITIZA 24 MCG ORAL CAPSULE Take one capsule BID for constipation. LUBIPROSTONE 69750983445 No Longer Active Vanessa Hickey MD Active METOPROLOL SUCCINATE ER 100 MG ORAL TABLET EXTENDED RELEASE 24 HOUR 1 by mouth daily for blood pressure METOPROLOL SUCCINATE 85031501337 No Longer Active Grace Azam RMA Active METFORMIN HCL ER 500 MG ORAL TABLET EXTENDED RELEASE 24 HOUR Take three tablets by mouth everyday METFORMIN HCL 34830903224 No Longer Active Grace Azam RMA Active LOVAZA 1 GM ORAL CAPSULE 4 daily (for triglycerides) [id number] ETHYL ESTERS 85846545098 No Longer Active Grace Azam RMA Active TRAZODONE HCL 100 MG ORAL TABLET 1 tab by mouth for sleep TRAZODONE HCL 60546883991 No Longer Active Grace Azam RMA Active NOVOFINE 32G X 6 MM use one four times per day INSULIN PEN NEEDLE 30302515202 No Longer Active Grace Azam RMA Active BACTROBAN 2 % EXTERNAL CREAM Apply to affected area BID for up to 10 days MUPIROCIN CALCIUM 51627665227 No Longer Active Grace Azam RMA Active KEFLEX 500 MG ORAL CAPSULE 1 po BID x 7 days CEPHALEXIN 14816679384 No Longer Active Cherelle Avila APRN Active FLUVOXAMINE MALEATE 100 MG ORAL TABLET Take one (1) tablet by mouth am, 1/2 at noon FLUVOXAMINE MALEATE 93251189908 No Longer Active Mima Erazo APRN Active FLUVOXAMINE MALEATE 100 MG ORAL TABLET Take 1/2 tab at noon 03/04 FLUVOXAMINE MALEATE 09636205369 No Longer Active Cherelle Avila APRN Active ACCU-CHEK ROSA DEVICE Use device to check blood sugars BLOOD GLUCOSE MONITORING SUPPL 22797243404 No Longer Active Marvel MARROQUIN Active ACCU-CHEK ROSA IN VITRO STRIP use strips with device to check blood sugars 3 times daily GLUCOSE BLOOD 69867592628 No Longer Active Brooksjohn MARROQUIN Active CYCLOBENZAPRINE HCL 10 MG ORAL TABLET 1 tablet by mouth three times daily, scheduled CYCLOBENZAPRINE HCL 40309471253 No Longer Active Alina Castaneda MD PhD Active HUMALOG 100 UNIT/ML SUBCUTANEOUS SOLUTION Take 20 units with breakfast, 10u with lunch and suppetr. INSULIN LISPRO (HUMAN) 62642763093 No Longer Active Alina Castaneda MD PhD Active TRUETEST TEST IN VITRO STRIP check sugars 4x/day GLUCOSE BLOOD 88129211223 No Longer Active Alina Castaneda MD PhD Active MORPHINE SULFATE 30 MG ORAL TABLET 1 pill by mouth twice daily, for pain 2013 MORPHINE SULFATE 73242069956 No Longer Active Mason Loredo MD Active ACYCLOVIR 400 MG ORAL TABLET 1 pill three times daily x 5 days, for cold sore outbreak ACYCLOVIR 39764994181 No Longer Active Alina Castaneda MD PhD Active PENICILLIN V POTASSIUM 500 MG ORAL TABLET 1 pill by mouth three times daily PENICILLIN V POTASSIUM 37509263666 No Longer Active Alina Castaneda MD PhD Active UROXATRAL 10 MG ORAL TABLET EXTENDED RELEASE 24 HOUR Take 1 tablet by mouth daily ALFUZOSIN HCL 23496826426 No Longer Active Alina Castaneda MD PhD Active THIOTHIXENE 5 MG ORAL CAPSULE by mouth twice a day THIOTHIXENE 09155520469 No Longer Active Alina Castaneda MD PhD Active ZYPREXA 7.5 MG ORAL TABLET 1 at HS OLANZAPINE 05490111146 No Longer Active Alina Castaneda MD PhD Active DETROL LA 4 MG ORAL CAPSULE EXTENDED RELEASE 24 HOUR Take 1 tablet by mouth daily TOLTERODINE TARTRATE 01137645514 No Longer Active Alina Castaneda MD PhD Active TERESE CONTOUR TEST IN VITRO STRIP monitor blood sugars 3x/day GLUCOSE BLOOD 78728046251 No Longer Active Alina Castaneda MD PhD Active EQL TRUETEST TEST IN VITRO STRIP Test blood sugar TID GLUCOSE BLOOD 60708252128 No Longer Active Alina Castaneda MD PhD Active FLUTICASONE PROPIONATE 50 MCG/ACT NASAL SUSPENSION 2 sprays each nostril qDay x 30 days FLUTICASONE PROPIONATE 85268635181 No Longer Active Alina Castaneda MD PhD Active IBUPROFEN 200 MG ORAL TABLET 1 Q 6 hr. PRN IBUPROFEN 19862383437 No Longer Active Alina Castaneda MD PhD Active NIACIN ER 500 MG ORAL TABLET EXTENDED RELEASE 4 qHS (for triglycerides) 01/13 NIACIN 44071532447 No Longer Active Alina Castaneda MD PhD Active SAPHRIS 5 MG SUBLINGUAL TABLET SUBLINGUAL by mouth twice a day ASENAPINE MALEATE 06184721012 No Longer Active Maljohn Ziglari DETONATOR MAKER Active ACETAMINOPHEN 500 MG ORAL TABLET 2 Q 6 hr. PRN ACETAMINOPHEN 45665203980 No Longer Active Maliheh Ziglari DETONATOR MAKER Active ORPHENADRINE CITRATE ER 100 MG ORAL TABLET EXTENDED RELEASE 12 HOUR 1 every 12 hr. as needed ORPHENADRINE CITRATE 33271789866 No Longer Active Alina Castaneda MD PhD Active NIACIN ER 500 MG ORAL TABLET EXTENDED RELEASE 2 qHS NIACIN 00768495113 No Longer Active Alina Castaneda MD PhD Active AMOXICILLIN 500 MG ORAL CAPSULE 2 po BID x 10 days AMOXICILLIN 56040164824 No Longer Active Alina Castaneda MD PhD Active HYDROCODONE-ACETAMINOPHEN 7.5-325 MG ORAL TABLET 1 four times a day as needed for pain HYDROCODONE-ACETAMINOPHEN 09211592820 No Longer Active Alina Castaneda MD PhD Active DOXEPIN HCL 10 MG ORAL CAPSULE Take 1 tablet by mouth daily DOXEPIN HCL 40694545211 No Longer Active Salina Han [facility] Active NAVANE 10 MG CAPS 1/2 tablet twice a day THIOTHIXENE No Longer Active Salina Han [facility] Active CYCLOBENZAPRINE HCL 10 MG ORAL TABLET 1/2 tablet by mouth every 8 hours as needed for muscle spasms CYCLOBENZAPRINE HCL 18896219232 No Longer Active Alina Castaneda MD PhD Active BACTROBAN 2 % EXTERNAL CREAM apply to ear and nose twice daily MUPIROCIN CALCIUM 73237980413 No Longer Active Alina Castaneda MD PhD Active HYDROCODONE-ACETAMINOPHEN 5-325 MG ORAL TABLET take one tablet by mouth every four hours as needed for pain HYDROCODONE-ACETAMINOPHEN 92351598661 No Longer Active Alina Castaneda MD PhD Active ZYPREXA 5 MG ORAL TABLET take one tablet by mouth every evening OLANZAPINE 06776982689 No Longer Active Alina Castaneda MD PhD Active ALBUTEROL SULFATE (2.5 MG/3ML) 0.083% INHALATION NEBULIZATION SOLUTION one vial per nebulizer TID and PRN cough/soa ALBUTEROL SULFATE 85776293460 No Longer Active Alina Castaneda MD PhD Active GUAIFENESIN ER 600 MG ORAL TABLET EXTENDED RELEASE 12 HOUR 1 tablet by mouth twice daily if needed for cough GUAIFENESIN 86395672629 No Longer Active Marvel MENDOZAP Active AZITHROMYCIN 500 MG INTRAVENOUS SOLUTION RECONSTITUTED 1 po q day AZITHROMYCIN 63518226166 No Longer Active Alina Castaneda MD PhD Active PROMETHAZINE-CODEINE 6.25-10 MG/5ML ORAL SYRUP 1 tsp po q 6 hours prn cough PROMETHAZINE-CODEINE 29273850898 No Longer Active Alina Castaneda MD PhD Active CEFDINIR 300 MG ORAL CAPSULE by mouth twice a day CEFDINIR 64095568728 No Longer Active Alina Castaneda MD PhD Active METFORMIN HCL ER 500 MG ORAL TABLET EXTENDED RELEASE 24 HOUR Take 3 tablets by mouth everyday METFORMIN HCL 06860964477 No Longer Active Alina Castaneda MD PhD Active LEVEMIR 100 UNIT/ML SUBCUTANEOUS SOLUTION 90 units SQ qHS INSULIN DETEMIR 61478609615 No Longer Active Marvel MARROQUIN Active TOPROL XL 100 MG ORAL TABLET EXTENDED RELEASE 24 HOUR 1 @ HS METOPROLOL SUCCINATE 14533520637 No Longer Active Marvel MARROQUIN Active ALLOPURINOL 300 MG ORAL TABLET Take one by mouth daily ALLOPURINOL 71026604088 Active Mima Erazo MAINTENANCE PAINTER Active ZYPREXA 10 MG ORAL TABLET Take one by mouth daily OLANZAPINE 50995942099 No Longer Active Alina Castaneda MD PhD Active NOVOLOG 100 UNIT/ML SUBCUTANEOUS SOLUTION 40 units with every meal INSULIN ASPART 88745937570 No Longer Active Alina Castaneda MD PhD Active VERAPAMIL HCL ER 120 MG ORAL TABLET EXTENDED RELEASE 1 qPM 09/08 VERAPAMIL HCL 66859831072 No Longer Active Salina ROJAS Active ZYPREXA 15 MG ORAL TABLET Take 1 tablet by mouth daily OLANZAPINE 93920763735 No Longer Active Marvel MARROQUIN Active ALBUTEROL SULFATE (2.5 MG/3ML) 0.083% INHALATION NEBULIZATION SOLUTION 1 neb tid and prn cough ALBUTEROL SULFATE 29294836776 No Longer Active Alina Castaneda MD PhD Active LANTUS 100 UNIT/ML SUBCUTANEOUS SOLUTION 60 units sq q hs INSULIN GLARGINE 37842055304 No Longer Active CRYSTAL Suarez Active ALBUTEROL SULFATE (2.5 MG/3ML) 0.083% INHALATION NEBULIZATION SOLUTION 1 neb tid and prn cough ALBUTEROL SULFATE (2.5 MG/3ML) 0.083% INHALATION NEBULIZATION SOLUTION 241489 ALBUTEROL SULFATE Inactive ZYPREXA 15 MG ORAL TABLET Take 1 tablet by mouth daily ZYPREXA 15 MG ORAL TABLET 731474 OLANZAPINE Inactive VERAPAMIL HCL ER 120 MG ORAL TABLET EXTENDED RELEASE 1 qPM 09/08 VERAPAMIL HCL ER 120 MG ORAL TABLET EXTENDED RELEASE VERAPAMIL HCL Inactive ZYPREXA 10 MG ORAL TABLET Take one by mouth daily ZYPREXA 10 MG ORAL TABLET 282345 OLANZAPINE Inactive TOPROL XL 100 MG ORAL TABLET EXTENDED RELEASE 24 HOUR 1 @ HS TOPROL XL 100 MG ORAL TABLET EXTENDED RELEASE 24 HOUR METOPROLOL SUCCINATE Inactive LEVEMIR 100 UNIT/ML SUBCUTANEOUS SOLUTION 90 units SQ qHS LEVEMIR 100 UNIT/ML SUBCUTANEOUS SOLUTION INSULIN DETEMIR Inactive PROMETHAZINE-CODEINE 6.25-10 MG/5ML ORAL SYRUP 1 tsp po q 6 hours prn cough PROMETHAZINE-CODEINE 6.25-10 MG/5ML ORAL SYRUP 855813 PROMETHAZINE-CODEINE Inactive GUAIFENESIN ER 600 MG ORAL TABLET EXTENDED RELEASE 12 HOUR 1 tablet by mouth twice daily if needed for cough GUAIFENESIN ER 600 MG ORAL TABLET EXTENDED RELEASE 12 HOUR GUAIFENESIN Inactive ALBUTEROL SULFATE (2.5 MG/3ML) 0.083% INHALATION NEBULIZATION SOLUTION one vial per nebulizer TID and PRN cough/soa ALBUTEROL SULFATE (2.5 MG/3ML) 0.083% INHALATION NEBULIZATION SOLUTION 055927 ALBUTEROL SULFATE Inactive ZYPREXA 5 MG ORAL TABLET take one tablet by mouth every evening ZYPREXA 5 MG ORAL TABLET 384006 OLANZAPINE Inactive HYDROCODONE-ACETAMINOPHEN 5-325 MG ORAL TABLET take one tablet by mouth every four hours as needed for pain HYDROCODONE-ACETAMINOPHEN 5-325 MG ORAL TABLET 870689 HYDROCODONE-ACETAMINOPHEN Inactive BACTROBAN 2 % EXTERNAL CREAM apply to ear and nose twice daily BACTROBAN 2 % EXTERNAL CREAM 133815 MUPIROCIN CALCIUM Inactive CYCLOBENZAPRINE HCL 10 MG ORAL TABLET 1/2 tablet by mouth every 8 hours as needed for muscle spasms CYCLOBENZAPRINE HCL 10 MG ORAL TABLET 730344 CYCLOBENZAPRINE HCL Inactive NAVANE 10 MG CAPS 1/2 tablet twice a day NAVANE 10 MG CAPS THIOTHIXENE Inactive DOXEPIN HCL 10 MG ORAL CAPSULE Take 1 tablet by mouth daily DOXEPIN HCL 10 MG ORAL CAPSULE 8778408 DOXEPIN HCL Inactive HYDROCODONE-ACETAMINOPHEN 7.5-325 MG ORAL TABLET 1 four times a day as needed for pain HYDROCODONE-ACETAMINOPHEN 7.5-325 MG ORAL TABLET 787988 HYDROCODONE-ACETAMINOPHEN Inactive NIACIN ER 500 MG ORAL [...] hr. PRN ACETAMINOPHEN 500 MG ORAL TABLET 141130 ACETAMINOPHEN Inactive SAPHRIS 5 MG SUBLINGUAL TABLET SUBLINGUAL by mouth twice a day SAPHRIS 5 MG SUBLINGUAL TABLET SUBLINGUAL ASENAPINE MALEATE Inactive NIACIN ER 500 MG ORAL TABLET EXTENDED RELEASE 4 qHS (for triglycerides) 01/13 NIACIN ER 500 MG ORAL TABLET EXTENDED RELEASE NIACIN Inactive IBUPROFEN 200 MG ORAL TABLET 1 Q 6 hr. PRN IBUPROFEN 200 MG ORAL TABLET 084113 IBUPROFEN Inactive FLUTICASONE PROPIONATE 50 MCG/ACT NASAL SUSPENSION 2 sprays each nostril qDay x 30 days FLUTICASONE PROPIONATE 50 MCG/ACT NASAL SUSPENSION 0669125 FLUTICASONE PROPIONATE Inactive EQL TRUETEST TEST IN [...] at HS ZYPREXA 7.5 MG ORAL TABLET 374856 OLANZAPINE Inactive THIOTHIXENE 5 MG ORAL CAPSULE by mouth twice a day THIOTHIXENE 5 MG ORAL CAPSULE 161401 THIOTHIXENE Inactive UROXATRAL 10 MG ORAL TABLET EXTENDED RELEASE 24 HOUR Take 1 tablet by mouth daily UROXATRAL 10 MG ORAL TABLET EXTENDED RELEASE 24 HOUR ALFUZOSIN HCL Inactive ACYCLOVIR 400 MG ORAL TABLET 1 pill three times daily x 5 days, for cold sore outbreak ACYCLOVIR 400 MG ORAL TABLET 163016 ACYCLOVIR Inactive TRUETEST TEST IN VITRO STRIP check sugars 4x/day TRUETEST TEST IN VITRO STRIP GLUCOSE BLOOD Inactive HUMALOG 100 UNIT/ML SUBCUTANEOUS SOLUTION Take 20 units with breakfast, 10u with lunch and suppetr. HUMALOG 100 UNIT/ML SUBCUTANEOUS SOLUTION INSULIN LISPRO (HUMAN) Inactive CYCLOBENZAPRINE HCL 10 MG ORAL TABLET 1 tablet by mouth three times daily, scheduled CYCLOBENZAPRINE HCL 10 MG ORAL TABLET 858418 CYCLOBENZAPRINE HCL Inactive ACCU-CHEK ROSA IN VITRO STRIP use strips with device to check blood sugars 3 times daily ACCU-CHEK ROSA IN VITRO STRIP GLUCOSE BLOOD Inactive ACCU-CHEK ROSA DEVICE Use device to check blood sugars ACCU-CHEK ROSA DEVICE BLOOD GLUCOSE MONITORING SUPPL Inactive FLUVOXAMINE MALEATE 100 MG ORAL TABLET Take 1/2 tab at noon 03/04 FLUVOXAMINE MALEATE 100 MG ORAL TABLET 161716 FLUVOXAMINE MALEATE Inactive FLUVOXAMINE MALEATE 100 MG ORAL TABLET Take one (1) tablet by mouth am, 1/2 at noon FLUVOXAMINE MALEATE 100 MG ORAL TABLET 305580 FLUVOXAMINE MALEATE Inactive BACTROBAN 2 % EXTERNAL CREAM Apply to affected area BID for up to 10 days BACTROBAN 2 % EXTERNAL CREAM 869551 MUPIROCIN CALCIUM Inactive NOVOFINE 32G X 6 MM use one four times per day NOVOFINE 32G X 6 MM INSULIN PEN NEEDLE Inactive TRAZODONE HCL 100 MG ORAL TABLET 1 tab by mouth for sleep TRAZODONE HCL 100 MG ORAL TABLET 500659 TRAZODONE HCL Inactive LOVAZA 1 GM ORAL CAPSULE 4 daily (for triglycerides) LOVAZA 1 GM ORAL CAPSULE 550384 [id number] ETHYL ESTERS Inactive METFORMIN HCL ER 500 [...] bladder TOLTERODINE TARTRATE 2 MG ORAL TABLET 223422 TOLTERODINE TARTRATE Inactive COLACE 100 MG ORAL CAPSULE 1 pill by mouth twice daily, for constipation 2014 COLACE 100 MG ORAL CAPSULE 4254738 DOCUSATE SODIUM Inactive LOMOTIL 2.5-0.025 MG ORAL TABLET take 1-2 tabs PO after each stool, no more than 8 in 24 hours LOMOTIL 2.5-0.025 MG ORAL TABLET 9046955 DIPHENOXYLATE-ATROPINE Inactive ZOFRAN 4 MG ORAL TABLET 1 po q4hr PRN Nausea ZOFRAN 4 MG ORAL TABLET 018660 ONDANSETRON HCL Inactive HYDROCODONE-ACETAMINOPHEN 5-325 MG ORAL TABLET 2 tabs by mouth three times daily for pain HYDROCODONE-ACETAMINOPHEN 5-325 MG ORAL TABLET 418090 HYDROCODONE-ACETAMINOPHEN Inactive ZOLPIDEM TARTRATE 10 MG ORAL TABLET take at bedtime ZOLPIDEM TARTRATE 10 MG ORAL TABLET 166930 ZOLPIDEM TARTRATE Inactive LISINOPRIL 20 MG ORAL TABLET 1 BID LISINOPRIL 20 MG ORAL TABLET 534654 LISINOPRIL Inactive TRAVATAN Z 0.004 % OPHTHALMIC SOLUTION 1 gtt each eye daily TRAVATAN Z 0.004 % OPHTHALMIC SOLUTION TRAVOPROST Inactive LATUDA 60 MG ORAL TABLET Take one by mouth daily LATUDA 60 MG ORAL TABLET LURASIDONE HCL Inactive FLUVOXAMINE MALEATE 50 MG ORAL TABLET 1 tab by mouth daily 04/01 FLUVOXAMINE MALEATE 50 MG ORAL TABLET 068443 FLUVOXAMINE MALEATE Inactive LEVEMIR FLEXTOUCH 100 UNIT/ML [...] 30G 3 a day TRUEPLUS LANCETS 30G [id number] LANCETS Inactive AMITIZA 24 MCG ORAL CAPSULE [...] noon FLUVOXAMINE MALEATE 100 MG ORAL TABLET 400751 FLUVOXAMINE MALEATE Inactive FLONASE ALLERGY RELIEF 50 MCG/ACT NASAL SUSPENSION One spray each nostril BID x 1 week then daily FLONASE ALLERGY RELIEF 50 MCG/ACT NASAL SUSPENSION 0715752 FLUTICASONE PROPIONATE Inactive IMODIUM A-D 2 MG ORAL TABLET 1 tab QID as needed IMODIUM A-D 2 MG ORAL TABLET 988064 LOPERAMIDE HCL Inactive MYLANTA GAS RELIEF MAXIMUM STR 125 MG ORAL CAPSULE 30cc every 4 hours prn MYLANTA GAS RELIEF MAXIMUM STR 125 MG ORAL CAPSULE SIMETHICONE Inactive TRUEPLUS LANCETS 30G 3x a day TRUEPLUS LANCETS 30G [id number] LANCETS Inactive TRUE METRIX BLOOD GLUCOSE TEST [...] headaches TRAZODONE HCL 100 MG ORAL TABLET 083319 TRAZODONE HCL Inactive TYLENOL 8 HOUR 650 [...] evening TAMSULOSIN HCL 0.4 MG ORAL CAPSULE 125441 TAMSULOSIN HCL Inactive [facility] MEL[facility] 3 MG ORAL TABLET give 1 tab by mouth at HS [facility] MELATONIN 3 MG ORAL TABLET 19901024 MELATONIN Inactive SEROQUEL 100 MG ORAL TABLET 1 tab daily SEROQUEL 100 MG ORAL TABLET 996905 QUETIAPINE FUMARATE Inactive AMARYL 2 MG ORAL TABLET give 2.5 tabs PO daily AMARYL 2 MG ORAL TABLET 302556 GLIMEPIRIDE Inactive SEROQUEL 25 MG ORAL TABLET Take two tabs by mouth in the morning, take 4 tablets at night SEROQUEL 25 MG ORAL TABLET 622670 QUETIAPINE FUMARATE Inactive QUETIAPINE FUMARATE 25 MG ORAL TABLET 2 tabs BID QUETIAPINE FUMARATE 25 MG ORAL TABLET 912412 QUETIAPINE FUMARATE Inactive QUETIAPINE FUMARATE 100 MG ORAL TABLET 1 tab PO at HS QUETIAPINE FUMARATE 100 MG ORAL TABLET 987648 QUETIAPINE FUMARATE Inactive LATUDA 40 MG ORAL TABLET 1.5 tab by mouth in the afternoon 05/23 LATUDA 40 MG ORAL TABLET LURASIDONE HCL Inactive TOPAMAX 25 MG ORAL TABLET 1 tab BID PRN TOPAMAX 25 MG ORAL TABLET 715428 TOPIRAMATE Inactive EFFEXOR XR 150 MG ORAL CAPSULE EXTENDED RELEASE 24 HOUR 1 tab daily EFFEXOR XR 150 MG ORAL CAPSULE EXTENDED RELEASE 24 HOUR VENLAFAXINE HCL Inactive VERAPAMIL HCL ER 180 MG ORAL TABLET EXTENDED RELEASE 1 pill by mouth twice daily, for migraine prevention VERAPAMIL HCL ER 180 MG ORAL TABLET EXTENDED RELEASE VERAPAMIL HCL Inactive [facility] MELATONIN 3 MG ORAL TABLET 1 tab nightly [facility] MELATONIN 3 MG ORAL TABLET 19901024 MELATONIN Inactive [facility] MILK OF MAGNESIA 400 MG/5ML ORAL SUSPENSION 30ml by mouth bid prn [facility] MILK OF MAGNESIA 400 MG/5ML ORAL SUSPENSION MAGNESIUM HYDROXIDE Inactive MIRALAX ORAL POWDER 17g by mouth q12h, for constipation MIRALAX ORAL POWDER 990567 POLYETHYLENE GLYCOL 3350 Inactive CEFDINIR 300 MG ORAL CAPSULE by mouth twice a day CEFDINIR 300 MG ORAL CAPSULE 026653 CEFDINIR Inactive AZITHROMYCIN 500 MG INTRAVENOUS SOLUTION RECONSTITUTED 1 po q day AZITHROMYCIN 500 MG INTRAVENOUS SOLUTION RECONSTITUTED [id number] AZITHROMYCIN Inactive AMOXICILLIN 500 MG ORAL CAPSULE 2 po BID x 10 days AMOXICILLIN 500 MG ORAL CAPSULE 993315 AMOXICILLIN Inactive PENICILLIN V POTASSIUM 500 MG ORAL TABLET 1 pill by mouth three times daily PENICILLIN V POTASSIUM 500 MG ORAL TABLET 180826 PENICILLIN V POTASSIUM Inactive KEFLEX 500 MG ORAL CAPSULE 1 po BID x 7 days KEFLEX 500 MG ORAL CAPSULE 851255 CEPHALEXIN Inactive Immunizations Vaccine Administration Date Value [...] Fluvirin, Fluarix, Agriflu(>=18 yo)) Fluzone (>3 yrs.) [[id number]] Influenza, seasonal, injectable pneumococcal immunization administered Pneumovax 23 [CVX33] pneumococcal polysaccharide vaccine, 23 valent Vital Signs Date Name Value Unit Range Description blood pressure, diastolic, repeated by physician 94 BP garcia blood pressure, diastolic 94 mm[Hg] BP garcia blood pressure, systolic, repeated by physician 143 BP sys blood pressure, systolic 143 mm[Hg] BP sys height E&M 70 [in_us] Bdy height pulse rate E&M 77 /min Heart rate respiratory rate E&M 16 /min Resp rate temperature E&M 96.8 [degF] Body temperature weight E&M 227.50 [lb_av] Weight Measured blood pressure, diastolic, repeated by physician 89 BP garcia blood pressure, diastolic 89 mm[Hg] BP garcia blood pressure, systolic, repeated by physician 130 BP sys blood pressure, systolic 130 mm[Hg] BP sys pulse rate E&M 92 /min Heart rate temperature E&M 97.1 [degF] Body temperature blood pressure, diastolic, second observation 89 mm[Hg] BP garcia blood pressure, diastolic, third observation 78 mm[Hg] BP garcia blood pressure, diastolic 82 mm[Hg] BP garcia blood pressure, systolic, second observation 170 mm[Hg] BP sys blood pressure, systolic, third observation 161 mm[Hg] BP sys blood pressure, systolic 169 mm[Hg] BP sys height E&M 70 [in_us] Bdy height pulse rate E&M 100 /min Heart rate temperature E&M 98.8 [degF] Body temperature weight E&M 226 [lb_av] Weight Measured blood pressure, diastolic, repeated by physician 69 [...] ... - Chemistry sodium, serum 135 mmol/L 491-125 4609/08/22 carbon dioxide, venous blood 28.4 mmol/L 21.0-32.0 [...] mg/g {creat} 0-29 cholesterol, serum 263 mg/dL 923-074 8640/08/22 triglyceride, serum, fasting 1312 mg/dL 30-200 HDL [...] ordered Encounters Code Encounter Date Provider Facility CPT-34681 Level 3 Est. Patient 16:25:15 BLOOD BANK WORKER [facility] [id number] Vst-Est Level IV 15:10:01 BLOOD BANK WORKER Mason Loredo MD [facility] CPT-67875 [id number] Vst-Est Level III 11:00:25 CDT Shavonne Feliciano PA-C [facility] CPT-05810 Level 3 Est. Patient 09:12:14 BLOOD BANK WORKER Mima Erazo APRN [facility] CPT-97260 Level 3 Est. Patient 16:52:51 CDT Vanessa Hickey MD [facility] CPT-75873 Level 3 Est. Patient 17:40:16 CDT Mima Vadimjerrell [facility] CPT-31443 Level 3 Est. Patient 14:34:52 CDT Vanessa Hickey MD [facility]-06554 Level 3 Est. Patient 16:27:51 CDT Mima Jeffliudmila [facility] CPT-31832 Level 3 Est. Patient 14:39:00 BLOOD BANK WORKER Vanessa Hickey MD [facility]-27528 Level 2 Est. Patient 18:43:34 CDT Mima Erazo [facility] CPT-86390 Level 3 Est. Patient 16:22:09 CDT Cherelle Avila [facility] CPT-26219 Level 4 Est. Patient 17:55:14 CDT Mima Erazo [facility] CPT-03566 Level 2 Est. Patient 17:13:21 CDT Alina Castaneda MD [facility]-59703 Level 3 Est. Patient 14:46:15 CDT Vanessa Hickey MD [facility]-03877 Level 3 Est. Patient 09:34:56 CDT Alina Castaneda MD [facility]-15965 Level 3 Est. Patient 21:40:19 CDT Mima Vadimjerrell [facility] CPT-76197 Level 3 Est. Patient 09:26:40 CDT Marvel [facility]-32226 Level 3 Est. Patient 12:36:43 CDT Vanessa Hickey MD [facility]-46518 Level 3 Est. Patient 12:57:49 CDT Vanessa Hickey MD [facility]-84138 Level 3 Est. Patient 00:28:25 CDT Alina Castaneda MD [facility]04403 Level 2 Est. Patient 12:52:14 CDT Alina Castaneda MD [facility]-06785 Level 3 Est. Patient 11:51:18 BLOOD BANK WORKER Alina Castaneda MD [facility]-73022 Level 3 Est. Patient 10:09:22 BLOOD BANK WORKER Alina Castaneda MD [facility]93097 Level 3 Est. Patient 14:36:26 BLOOD BANK WORKER Marvel [facility]-24137 Level 3 Est. Patient 13:34:47 BLOOD BANK WORKER Alina Castaneda MD [facility]13027 Level 3 Est. Patient 19:52:08 BLOOD BANK WORKER Alina Castaneda MD [facility]72920 Level 3 Est. Patient 10:01:51 [facility]-97021 Level 3 Est. Patient 21:54:06 CDT Vanessa Hickey MD [facility]-94167 Level 3 Est. Patient 08:54:46 CDT Alina Castaneda MD [facility]-39834 Level 3 Est. Patient 09:32:11 [facility]-51711 Level 3 Est. Patient 12:02:49 CDT Alina Castaneda MD [facility]-59667 Level 3 Est. Patient 19:17:33 CDT Alina Castaneda MD [facility]-89004 Level 3 Est. Patient 13:19:10 CDT Marvel [facility]41121 Level 3 Est. Patient 08:20:05 CDT Alina Castaneda MD [facility]46685 Level 3 Est. Patient 15:17:18 CDT Alina Castaneda MD [facility]-79915 Level 3 Est. Patient 14:25:36 BLOOD BANK WORKER Marvel [facility]-78128 Level 3 Est. Patient 10:09:15 BLOOD BANK WORKER Marvel [facility]-93276 Level 3 Est. Patient 21:28:43 CDT Alina Castaneda MD [facility]-56242 Level 3 Est. Patient 15:20:11 [facility] 4 Est. Patient 19:08:12 CDT Alina Castaneda MD [facility]-28385 Level 3 Est. Patient 15:06:39 [facility]-61700 Level 4 Est. Patient 17:48:15 CDT Alina Castaneda MD [facility]-82685 Level 3 Est. Patient 14:53:49 CDT Alina Castaneda MD [facility]-65972 Level 3 Est. Patient 09:35:16 CDT Alina Castaneda MD [facility]-14218 Level 3 Est. Patient 12:23:22 CDT Alina Castaneda MD [facility]-89768 Level 3 Est. Patient 16:19:15 CDT Alina Castaneda MD [facility]-57316 Level 3 Est. Patient 21:39:56 BLOOD BANK WORKER Alina Castaneda MD [facility]-96844 Level 4 Est. Patient 14:12:56 BLOOD BANK WORKER Alina Castaneda MD [facility]-11988 Level 2 Est. Patient 15:34:57 BLOOD BANK WORKER Alina Castaneda MD [facility]-08305 Level 3 Est. Patient 12:17:04 BLOOD BANK WORKER Alina Castaneda MD [facility]52405 Level 3 Est. Patient 09:18:18 BLOOD BANK WORKER Marvel [facility]-60788 Level 2 Est. Patient 21:50:24 CDT Alina Castaneda MD [facility]50593 Level 3 Est. Patient 09:17:28 CDT Marvel [facility]-28647 Level 4 Est. Patient 18:54:02 CDT Alina Castaneda MD [facility]42268 Level 3 Est. Patient 10:47:10 CDT Alina Castaneda MD [facility]56955 Level 3 Est. Patient 09:22:20 CDT Marvel [facility]-87679 Level 3 Est. Patient 16:39:43 [facility]-38870 Level 3 Est. Patient 16:05:16 CDT Alina Castaneda MD [facility]-91757 Level 3 Est. Patient 00:29:15 CDT Alina Castaneda MD [facility]29681 Level 3 Est. Patient 10:49:22 BLOOD BANK WORKER Marvel [facility]66522 Level 3 Est. Patient 21:30:19 BLOOD BANK WORKER Alina Castaneda MD [facility]59998 Level 4 Est. Patient 17:04:11 BLOOD BANK WORKER Marvel [facility]75466 Level 3 Est. Patient 15:34:11 BLOOD BANK WORKER Marvel [facility]ENDOZ[facility] CPT-14327 Level 2 Est. Patient 12:51:58 BLOOD BANK WORKER Alina Castaneda MD PhD [facility] CPT-54447 Level 3 Est. Patient 13:20:01 BLOOD BANK WORKER Alina Castaneda MD PhD [facility] CPT-59056 Level 3 Est. Patient 09:23:35 CDT Alina Castaneda MD PhD [facility] Procedures Code Procedure Name Date Entry Date Standard Description CPT-88469 Level 2 Shelter 14:06:10 BLOOD BANK WORKER CPT-G0439 [facility] Annual Wellness Exam 15:49:52 BLOOD BANK WORKER CPT-09391 Level 3 Shelter 13:20:19 CDT CPT-TCMM Transitional Care Mgmt-Moderate 12:32:19 CDT CPT-25134 Level 2 Shelter 09:01:11 CDT CPT-92216 HGBA1C - LAB USE ONLY 09:30:27 BLOOD BANK WORKER CPT-42323 BMP - LAB USE ONLY 09:30:27 BLOOD BANK WORKER CPT-37018 Venipuncture Draw Fee 09:30:26 BLOOD BANK WORKER CPT-TCMM Transitional Care Mgmt-Moderate 10:25:31 CDT CPT-41828 Bladder Scan 14:34:53 CDT CPT-36489 Bladder Scan 14:39:01 BLOOD BANK WORKER CPT-TCMM Transitional Care Mgmt-Moderate 10:30:19 BLOOD BANK WORKER CPT-01811 Bladder Scan 12:36:44 CDT CPT-63589 Bladder Scan 21:54:06 CDT CPT-G0008 Administration of Influenza Virus Vaccine 13:05:26 CDT CPT-80145 Fluzone Quadrivalent Intramuscular Suspension 0.5 ML 13: 05:26 CDT CPT-05137 Administration single or combination vaccine inc oral 11 :49:51 CDT CPT-19497 Pneumovax 11:49:51 CDT CPT-24719 Ribs unilateral 2V 12:37:22 BLOOD BANK WORKER CPT-44188 Chest 2V Frontal and Lat 17:15:26 CDT CPT-95559 Abx/Therapy Injection 18:54:02 CDT CPT-J0696 Rocephin 1000 mg (Ceftriaxone) 16:00:32 CDT CPT-13697 Chest 2V Frontal and Lat 15:26:45 CDT CPT-49143 Chest 2V Frontal and Lat 10:23:27 CDT CPT-45919 Venipuncture Draw Fee 10:11:00 CDT CPT-45165 Administration single or combination vaccine inc oral 11 :56:38 CDT CPT-24020 Influenza split virus > age 3 11:56:38 CDT CPT-87535 Venipuncture Draw Fee 08:49:54 BLOOD BANK WORKER CPT-06549 EKG Trac and Interp 17:54:19 BLOOD BANK WORKER
--- OUTSIDE RECORDS SUMMARY | 2018-07-02 14:37 | XMS REPORT | Clinical Summary ---
Author Author Admin, MIKEE Organization [facility] [employer] Address Unknown Phone Unavailable Allergies, Adverse Reactions, 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 Erazo RECREATION ACTIVITIES COORDINATOR Benign paroxysmal positional vertigo Vertigo, benign paroxysmal position 386.11 Inactive Mima Erazo RECREATION ACTIVITIES COORDINATOR Benign paroxysmal positional vertigo High-risk sexual [...] Index 31.0-31.9, adult BMI 32-32.9 Active Mason Loreod MD Body Mass Index 31.0-31.9, adult Insomnia [...] by mouth once daily POLYETHYLENE GLYCOL 3350 [id number] Active Cherelle Souza RN Active CLONAZEPAM 1 MG ORAL TABLET 1 tablet by mouth three times daily CLONAZEPAM 91358922816 Active Cherelle Souza RN Active MIRALAX ORAL POWDER 17g by mouth q12h, for constipation POLYETHYLENE GLYCOL 3350 91868146421 No Longer Active Cherelle Souza RN Active LACTOBACILLUS ORAL TABLET 1 tablet by mouth at bedtime for probiotic LACTOBACILLUS 09232339470 Active Cherelle Souza RN Active D 2000 2000 UNIT ORAL TABLET 1 tablet by mouth twice daily CHOLECALCIFEROL 15512518460 Active Cherelle Souza RN Active DIVALPROEX SODIUM ER 500 MG ORAL TABLET EXTENDED RELEASE 24 HOUR 3 tablets by mouth at bedtime for Mood DIVALPROEX SODIUM 01173009479 Active Cherelle Souza RN Active GLIMEPIRIDE 4 MG ORAL TABLET 1 tablet by mouth once daily GLIMEPIRIDE 84518316587 Active Cherelle Souza RN Active VENLAFAXINE HCL ER 150 MG ORAL CAPSULE EXTENDED RELEASE 24 HOUR 1 tablet by mouth once daily VENLAFAXINE HCL 30316455969 Active Cherelle Souza RN Active RISPERDAL 2 MG ORAL TABLET Take 1 tablet by mouth three times a day RISPERIDONE 75336782914 Active Mya Ledezma MA Active [facility] MILK OF MAGNESIA 400 MG/5ML ORAL SUSPENSION 30ml by mouth bid prn MAGNESIUM HYDROXIDE 76683715400 No Longer Active Mya Ledezma MA Active [facility] MELATONIN 3 MG ORAL TABLET 1 tab nightly MELATONIN 25578272300 No Longer Active Mya Ledezma MA Active AMBIEN 10 MG ORAL TABLET 1 at night as needed for sleep ZOLPIDEM TARTRATE 16776984065 Active Mason Loredo MD Active VERAPAMIL HCL ER 180 MG ORAL TABLET EXTENDED RELEASE 1 pill by mouth twice daily, for migraine prevention VERAPAMIL HCL 53389682028 No Longer Active Mason Loredo MD Active EFFEXOR XR 150 MG ORAL CAPSULE EXTENDED RELEASE 24 HOUR 1 tab daily VENLAFAXINE HCL 28034796933 No Longer Active Mason Loredo MD Active TOPAMAX 25 MG ORAL TABLET 1 tab BID PRN TOPIRAMATE 82076718016 No Longer Active Mason Loredo MD Active LATUDA 40 MG ORAL TABLET 1.5 tab by mouth in the afternoon 05/23 LURASIDONE HCL 22474856048 No Longer Active Mason Loredo MD Active QUETIAPINE FUMARATE 100 MG ORAL TABLET 1 tab PO at HS QUETIAPINE FUMARATE 56788182952 No Longer Active Mason Loredo MD Active QUETIAPINE FUMARATE 25 MG ORAL TABLET 2 tabs BID QUETIAPINE FUMARATE 73755851884 No Longer Active Mason Loredo MD Active ATORVASTATIN CALCIUM 10 MG ORAL TABLET Take 1 tablet by mouth daily. Recheck labs in 3 months ATORVASTATIN CALCIUM 10832553504 Active Mya Ledezma MA Active VERAPAMIL HCL ER 180 MG ORAL TABLET EXTENDED RELEASE 1 tab BID VERAPAMIL HCL 58483393551 Active Shavonne Feliciano PA-C Active SEROQUEL 25 MG ORAL TABLET Take two tabs by mouth in the morning, take 4 tablets at night QUETIAPINE FUMARATE 43068379404 No Longer Active Shavonne Feliciano PA-C Active AMARYL 2 MG ORAL TABLET give 2.5 tabs PO daily GLIMEPIRIDE 64227283950 No Longer Active Shavonne Feliciano PA-C Active FENOFIBRATE 145 MG ORAL TABLET 1 tab PO in the morning FENOFIBRATE 36236871766 Active Shvaonne Feliciano PA-C Active SEROQUEL 100 MG ORAL TABLET 1 tab daily QUETIAPINE FUMARATE 11674997746 No Longer Active Shavonne Feliciano PA-C Active [facility] MELATONIN 3 MG ORAL TABLET give 1 tab by mouth at HS MELATONIN 86481262852 No Longer Active Gabrielle Marquez MA Active NOVOLOG FLEXPEN 100 UNIT/ML SUBCUTANEOUS SOLUTION PEN-INJECTOR sliding scale INSULIN ASPART 41340072811 Active Gabrielle Marquez MA Active METFORMIN HCL 1000 MG ORAL TABLET 1 tab by mouth BID METFORMIN HCL 69650941900 Active Gabrielleadrienne aMrquez MA Active TAMSULOSIN HCL 0.4 MG ORAL CAPSULE give 2 capsules PO each evening TAMSULOSIN HCL 40587973484 No Longer Active Gabrielleadrienne Marquez MA Active VITAMIN D 2000 UNIT ORAL CAPSULE Take one by mouth daily CHOLECALCIFEROL 86264670297 No Longer Active Gabrielleadrienne Marquez MA Active LEVEMIR 100 UNIT/ML SUBCUTANEOUS SOLUTION 10 u at bedtime INSULIN DETEMIR 28973368145 Active Gabrielle Littleananda NOEL Active TAMSULOSIN HCL 0.4 MG ORAL CAPSULE 2 every night for urine flow TAMSULOSIN HCL 46933906428 Active Gabrielle Sidneyananda NOEL Active ALIGN 4 MG ORAL CAPSULE 1 tab at hs PROBIOTIC PRODUCT 32340807734 No Longer Active Gabrielle Marquez MA Active OCEAN NASAL SPRAY SOLUTION 2 sprays in both nostrils every 8 hours as needed for dry mucous membranes SALINE SOLN 82097042098 Active Mason Loredo MD Active BETHANECHOL CHLORIDE 25 MG ORAL TABLET Take 1 tablet mouth four times a day BETHANECHOL CHLORIDE 54683612421 Active Mason Loredo MD Active [facility] LUBRICANT EYE DROPS 0.4-0.3 % OPHTHALMIC SOLUTION POLYETHYL GLYCOL-PROPYL GLYCOL 15289384736 No Longer Active Mason Loredo MD Active TYLENOL 8 HOUR 650 MG ORAL TABLET EXTENDED RELEASE 1 tab QID prn ACETAMINOPHEN 82755120568 No Longer Active Mason Loredo MD Active TIMOPTIC OCUDOSE 0.5 % OPHTHALMIC SOLUTION instill one drop into both eyes q12H TIMOLOL MALEATE 29726631818 Active Mason Loredo MD Active TRAZODONE HCL 100 MG ORAL TABLET 1 every night to prevent headaches TRAZODONE HCL 89282619054 No Longer Active Mason Loredo MD Active TRAVATAN Z 0.004 % OPHTHALMIC SOLUTION 1 drop each eye daily 2017 TRAVOPROST 32544383213 No Longer Active Mason Loredo MD Active LATUDA 60 MG ORAL TABLET 1 tab daily LURASIDONE HCL 07354461948 No Longer Active Mason Loredo MD Active MORPHINE SULFATE ER 30 MG ORAL TABLET EXTENDED RELEASE Take one capsule BID MORPHINE SULFATE 12091815870 No Longer Active Mason Loredo MD Active TRUE METRIX BLOOD GLUCOSE TEST IN VITRO STRIP Check blood sugars 3x/day. 2015 GLUCOSE BLOOD 31344194966 No Longer Active Mason Loredo MD Active TRUEPLUS LANCETS 30G 3x a day LANCETS 09783572939 No Longer Active Mason Loredo MD Active MYLANTA GAS RELIEF MAXIMUM STR 125 MG ORAL CAPSULE 30cc every 4 hours prn SIMETHICONE 03901723912 No Longer Active Mason Loredo MD Active IMODIUM A-D 2 MG ORAL TABLET 1 tab QID as needed LOPERAMIDE HCL 84326291183 No Longer Active Mason Loredo MD Active FLONASE ALLERGY RELIEF 50 MCG/ACT NASAL SUSPENSION One spray each nostril BID x 1 week then daily FLUTICASONE PROPIONATE 16625696413 No Longer Active Mason Loredo MD Active FLUVOXAMINE MALEATE 100 MG ORAL TABLET take one tab every AM et HS, and take 1 /2 tab at noon FLUVOXAMINE MALEATE 52088783091 No Longer Active Mason Loredo MD Active BD PEN NEEDLE MINI U/F 31G X 5 MM 4 a day INSULIN PEN NEEDLE 87979408766 No Longer Active Mason Loredo MD Active AMITIZA 24 MCG ORAL CAPSULE Take one capsule BID for constipation LUBIPROSTONE 68869703143 No Longer Active Mason Loredo MD Active TRUEPLUS LANCETS 30G 3 a day LANCETS 63302343587 No Longer Active Mason Loredo MD Active CORICIDIN HBP CONGESTION/COUGH 10-200 MG ORAL CAPSULE Take as directed on box as needed for cold/flu symptoms DEXTROMETHORPHAN- GUAIFENESIN 06003805993 No Longer Active Mason Loredo MD Active OMEGA-3 300 MG ORAL CAPSULE 4 caps by mouth daily OMEGA-3 FATTY ACIDS 17938413277 No Longer Active Mason Loredo MD Active HUMALOG KWIKPEN 100 UNIT/ML SUBCUTANEOUS SOLUTION PEN-INJECTOR sliding scale if needed INSULIN LISPRO (HUMAN) 63205969263 No Longer Active Mason Loredo MD Active TRUETEST TEST IN VITRO STRIP check blood sugars 3x/day GLUCOSE BLOOD 67391815038 No Longer Active Mason Loredo MD Active ALFUZOSIN HCL ER 10 MG ORAL TABLET EXTENDED RELEASE 24 HOUR 1 tablet daily ALFUZOSIN HCL 07261825723 No Longer Active Mason Loredo MD Active BD INSULIN SYRINGE 28G X 1/2" 1 ML 1 four times per day INSULIN SYRINGE-NEEDLE U-100 65015018800 No Longer Active Mason Loredo MD Active LEVEMIR FLEXTOUCH 100 UNIT/ML SUBCUTANEOUS SOLUTION PEN-INJECTOR 60 units SQ each evening, for diabetes INSULIN DETEMIR 39955911444 No Longer Active Mason Loredo MD Active LACTULOSE 20 GM/30ML ORAL SOLUTION give 30 Ml PO BID PRN LACTULOSE 97963890620 Active Mason Loredo MD Active COLACE 100 MG ORAL CAPSULE 1 tab BID PRN DOCUSATE SODIUM 43678563303 Active Mason Loredo MD Active LATANOPROST 0.005 % OPHTHALMIC SOLUTION instill 1 drop in both eyes at bed time LATANOPROST 58240766391 Active Mason Loredo MD Active IBUPROFEN 400 MG ORAL TABLET 1 tab Q6H PRN IBUPROFEN 71430053362 Active Mason Loredo MD Active FLUVOXAMINE MALEATE 50 MG ORAL TABLET 1 tab by mouth daily 04/01 FLUVOXAMINE MALEATE 54170398736 No Longer Active Mima Erazo APRN Active TRUE METRIX METER w/Device KIT Check blood sugars 3x/day BLOOD GLUCOSE MONITORING SUPPL 98092503339 Active Marvel Mackenzieglari SALVAGE WINDER Active LATUDA 60 MG ORAL TABLET Take one by mouth daily LURASIDONE HCL 12535505568 No Longer Active Mima Erazo APRN Active TRAVATAN Z 0.004 % OPHTHALMIC SOLUTION 1 gtt each eye daily TRAVOPROST 34773678303 No Longer Active Mason Loredo MD Active LISINOPRIL 20 MG ORAL TABLET 1 BID LISINOPRIL 95808665660 No Longer Active Mason Loredo MD Active ZOLPIDEM TARTRATE 10 MG ORAL TABLET take at bedtime ZOLPIDEM TARTRATE 63500658915 No Longer Active Mason Loredo MD Active HYDROCODONE-ACETAMINOPHEN 5-325 MG ORAL TABLET 2 tabs by mouth three times daily for pain HYDROCODONE-ACETAMINOPHEN 59397826814 No Longer Active Mason Loredo MD Active ZOFRAN 4 MG ORAL TABLET 1 po q4hr PRN Nausea ONDANSETRON HCL 44928147326 No Longer Active Mason Loredo MD Active LOMOTIL 2.5-0.025 MG ORAL TABLET take 1-2 tabs PO after each stool, no more than 8 in 24 hours DIPHENOXYLATE-ATROPINE 77737499945 No Longer Active Mason Loredo MD Active COLACE 100 MG ORAL CAPSULE 1 pill by mouth twice daily, for constipation 2014 DOCUSATE SODIUM 89677225734 No Longer Active Mima Yokum RECREATION ACTIVITIES COORDINATOR Active TOLTERODINE TARTRATE 2 MG ORAL TABLET 1 pill twice daily, for bladder TOLTERODINE TARTRATE 39484972404 No Longer Active Vanessa Hickey MD Active AMITIZA 24 MCG ORAL CAPSULE Take one capsule BID for constipation. LUBIPROSTONE 89170679340 No Longer Active Vanessa Hickey MD Active METOPROLOL SUCCINATE ER 100 MG ORAL TABLET EXTENDED RELEASE 24 HOUR 1 by mouth daily for blood pressure METOPROLOL SUCCINATE 90374121920 No Longer Active Grace Azam RMA Active METFORMIN HCL ER 500 MG ORAL TABLET EXTENDED RELEASE 24 HOUR Take three tablets by mouth everyday METFORMIN HCL 14613748897 No Longer Active Grace Azam RMA Active LOVAZA 1 GM ORAL CAPSULE 4 daily (for triglycerides) [id number] ETHYL ESTERS 19509078687 No Longer Active Grace Azam RMA Active TRAZODONE HCL 100 MG ORAL TABLET 1 tab by mouth for sleep TRAZODONE HCL 27892497232 No Longer Active Grace Azam RMA Active NOVOFINE 32G X 6 MM use one four times per day INSULIN PEN NEEDLE 43263626989 No Longer Active Grace Azam RMA Active BACTROBAN 2 % EXTERNAL CREAM Apply to affected area BID for up to 10 days MUPIROCIN CALCIUM 39821544091 No Longer Active Grace Azam RMA Active KEFLEX 500 MG ORAL CAPSULE 1 po BID x 7 days CEPHALEXIN 35398325629 No Longer Active Cherelle Avila APRN Active FLUVOXAMINE MALEATE 100 MG ORAL TABLET Take one (1) tablet by mouth am, 1/2 at noon FLUVOXAMINE MALEATE 06487916846 No Longer Active Mima Erazo APRN Active FLUVOXAMINE MALEATE 100 MG ORAL TABLET Take 1/2 tab at noon 03/04 FLUVOXAMINE MALEATE 11778102462 No Longer Active Cherelle Avila APRN Active ACCU-CHEK ROSA DEVICE Use device to check blood sugars BLOOD GLUCOSE MONITORING SUPPL 21085757381 No Longer Active Marvel MARROQUIN Active ACCU-CHEK ROSA IN VITRO STRIP use strips with device to check blood sugars 3 times daily GLUCOSE BLOOD 10289925809 No Longer Active Brooksjohn MARROQUIN Active CYCLOBENZAPRINE HCL 10 MG ORAL TABLET 1 tablet by mouth three times daily, scheduled CYCLOBENZAPRINE HCL 83874545746 No Longer Active Alina Castaneda MD PhD Active HUMALOG 100 UNIT/ML SUBCUTANEOUS SOLUTION Take 20 units with breakfast, 10u with lunch and suppetr. INSULIN LISPRO (HUMAN) 69587724772 No Longer Active Alina Castaneda MD PhD Active TRUETEST TEST IN VITRO STRIP check sugars 4x/day GLUCOSE BLOOD 88688455815 No Longer Active Alina Castaneda MD PhD Active MORPHINE SULFATE 30 MG ORAL TABLET 1 pill by mouth twice daily, for pain 2013 MORPHINE SULFATE 32152386090 No Longer Active Mason Loredo MD Active ACYCLOVIR 400 MG ORAL TABLET 1 pill three times daily x 5 days, for cold sore outbreak ACYCLOVIR 53594336124 No Longer Active Alina Castaneda MD PhD Active PENICILLIN V POTASSIUM 500 MG ORAL TABLET 1 pill by mouth three times daily PENICILLIN V POTASSIUM 84298034820 No Longer Active Alina Castaneda MD PhD Active UROXATRAL 10 MG ORAL TABLET EXTENDED RELEASE 24 HOUR Take 1 tablet by mouth daily ALFUZOSIN HCL 22361308151 No Longer Active Alina Castaneda MD PhD Active THIOTHIXENE 5 MG ORAL CAPSULE by mouth twice a day THIOTHIXENE 02002252450 No Longer Active Alina Castaneda MD PhD Active ZYPREXA 7.5 MG ORAL TABLET 1 at HS OLANZAPINE 12411398353 No Longer Active Alina Castaneda MD PhD Active DETROL LA 4 MG ORAL CAPSULE EXTENDED RELEASE 24 HOUR Take 1 tablet by mouth daily TOLTERODINE TARTRATE 75412304948 No Longer Active Alina Castaneda MD PhD Active ETRESE CONTOUR TEST IN VITRO STRIP monitor blood sugars 3x/day GLUCOSE BLOOD 67439369429 No Longer Active Alina Castaneda MD PhD Active EQL TRUETEST TEST IN VITRO STRIP Test blood sugar TID GLUCOSE BLOOD 34337037384 No Longer Active Alina Castaneda MD PhD Active FLUTICASONE PROPIONATE 50 MCG/ACT NASAL SUSPENSION 2 sprays each nostril qDay x 30 days FLUTICASONE PROPIONATE 43696248067 No Longer Active Alina Castaneda MD PhD Active IBUPROFEN 200 MG ORAL TABLET 1 Q 6 hr. PRN IBUPROFEN 81415991998 No Longer Active Alina Castaneda MD PhD Active NIACIN ER 500 MG ORAL TABLET EXTENDED RELEASE 4 qHS (for triglycerides) 01/13 NIACIN 04419485382 No Longer Active Alina Castaneda MD PhD Active SAPHRIS 5 MG SUBLINGUAL TABLET SUBLINGUAL by mouth twice a day ASENAPINE MALEATE 31170917204 No Longer Active Maljohn Ziglari SALVAGE WINDER Active ACETAMINOPHEN 500 MG ORAL TABLET 2 Q 6 hr. PRN ACETAMINOPHEN 46873884960 No Longer Active Maliheh Ziglari SALVAGE WINDER Active ORPHENADRINE CITRATE ER 100 MG ORAL TABLET EXTENDED RELEASE 12 HOUR 1 every 12 hr. as needed ORPHENADRINE CITRATE 47260286515 No Longer Active Alina Castaneda MD PhD Active NIACIN ER 500 MG ORAL TABLET EXTENDED RELEASE 2 qHS NIACIN 85034139594 No Longer Active Alina Castaneda MD PhD Active AMOXICILLIN 500 MG ORAL CAPSULE 2 po BID x 10 days AMOXICILLIN 39144593843 No Longer Active Alina Castaneda MD PhD Active HYDROCODONE-ACETAMINOPHEN 7.5-325 MG ORAL TABLET 1 four times a day as needed for pain HYDROCODONE-ACETAMINOPHEN 61275863175 No Longer Active Alina Castaneda MD PhD Active DOXEPIN HCL 10 MG ORAL CAPSULE Take 1 tablet by mouth daily DOXEPIN HCL 51716601694 No Longer Active Salina Han [facility] Active NAVANE 10 MG CAPS 1/2 tablet twice a day THIOTHIXENE No Longer Active Salina Han [facility] Active CYCLOBENZAPRINE HCL 10 MG ORAL TABLET 1/2 tablet by mouth every 8 hours as needed for muscle spasms CYCLOBENZAPRINE HCL 38219599691 No Longer Active Alina Castaneda MD PhD Active BACTROBAN 2 % EXTERNAL CREAM apply to ear and nose twice daily MUPIROCIN CALCIUM 69908563184 No Longer Active Alina Castaneda MD PhD Active HYDROCODONE-ACETAMINOPHEN 5-325 MG ORAL TABLET take one tablet by mouth every four hours as needed for pain HYDROCODONE-ACETAMINOPHEN 71422467680 No Longer Active Alina Castaneda MD PhD Active ZYPREXA 5 MG ORAL TABLET take one tablet by mouth every evening OLANZAPINE 99756389995 No Longer Active Alina Castaneda MD PhD Active ALBUTEROL SULFATE (2.5 MG/3ML) 0.083% INHALATION NEBULIZATION SOLUTION one vial per nebulizer TID and PRN cough/soa ALBUTEROL SULFATE 37797311298 No Longer Active Alina Castaneda MD PhD Active GUAIFENESIN ER 600 MG ORAL TABLET EXTENDED RELEASE 12 HOUR 1 tablet by mouth twice daily if needed for cough GUAIFENESIN 93806212565 No Longer Active Mravel MENDOZAP Active AZITHROMYCIN 500 MG INTRAVENOUS SOLUTION RECONSTITUTED 1 po q day AZITHROMYCIN 32310592289 No Longer Active Alina Castaneda MD PhD Active PROMETHAZINE-CODEINE 6.25-10 MG/5ML ORAL SYRUP 1 tsp po q 6 hours prn cough PROMETHAZINE-CODEINE 92809948629 No Longer Active Alina Castaneda MD PhD Active CEFDINIR 300 MG ORAL CAPSULE by mouth twice a day CEFDINIR 22154076773 No Longer Active Alina Castaneda MD PhD Active METFORMIN HCL ER 500 MG ORAL TABLET EXTENDED RELEASE 24 HOUR Take 3 tablets by mouth everyday METFORMIN HCL 21096769021 No Longer Active Alina Castaneda MD PhD Active LEVEMIR 100 UNIT/ML SUBCUTANEOUS SOLUTION 90 units SQ qHS INSULIN DETEMIR 72577306050 No Longer Active Marvel MARROQUIN Active TOPROL XL 100 MG ORAL TABLET EXTENDED RELEASE 24 HOUR 1 @ HS METOPROLOL SUCCINATE 26148601512 No Longer Active Marvel MARROQUIN Active ALLOPURINOL 300 MG ORAL TABLET Take one by mouth daily ALLOPURINOL 14536724895 Active Mima Erazo RECREATION ACTIVITIES COORDINATOR Active ZYPREXA 10 MG ORAL TABLET Take one by mouth daily OLANZAPINE 54977517957 No Longer Active Alina Castaneda MD PhD Active NOVOLOG 100 UNIT/ML SUBCUTANEOUS SOLUTION 40 units with every meal INSULIN ASPART 01124274207 No Longer Active Alina Castaneda MD PhD Active VERAPAMIL HCL ER 120 MG ORAL TABLET EXTENDED RELEASE 1 qPM 09/08 VERAPAMIL HCL 31570833985 No Longer Active Salina ROJAS Active ZYPREXA 15 MG ORAL TABLET Take 1 tablet by mouth daily OLANZAPINE 79172970314 No Longer Active Marvel MARROQUIN Active ALBUTEROL SULFATE (2.5 MG/3ML) 0.083% INHALATION NEBULIZATION SOLUTION 1 neb tid and prn cough ALBUTEROL SULFATE 70691323888 No Longer Active Alina Castaneda MD PhD Active LANTUS 100 UNIT/ML SUBCUTANEOUS SOLUTION 60 units sq q hs INSULIN GLARGINE 66697567317 No Longer Active CRYSTAL Suarez Active ALBUTEROL SULFATE (2.5 MG/3ML) 0.083% INHALATION NEBULIZATION SOLUTION 1 neb tid and prn cough ALBUTEROL SULFATE (2.5 MG/3ML) 0.083% INHALATION NEBULIZATION SOLUTION 797547 ALBUTEROL SULFATE Inactive ZYPREXA 15 MG ORAL TABLET Take 1 tablet by mouth daily ZYPREXA 15 MG ORAL TABLET 575441 OLANZAPINE Inactive VERAPAMIL HCL ER 120 MG ORAL TABLET EXTENDED RELEASE 1 qPM 09/08 VERAPAMIL HCL ER 120 MG ORAL TABLET EXTENDED RELEASE VERAPAMIL HCL Inactive ZYPREXA 10 MG ORAL TABLET Take one by mouth daily ZYPREXA 10 MG ORAL TABLET 140199 OLANZAPINE Inactive TOPROL XL 100 MG ORAL TABLET EXTENDED RELEASE 24 HOUR 1 @ HS TOPROL XL 100 MG ORAL TABLET EXTENDED RELEASE 24 HOUR METOPROLOL SUCCINATE Inactive LEVEMIR 100 UNIT/ML SUBCUTANEOUS SOLUTION 90 units SQ qHS LEVEMIR 100 UNIT/ML SUBCUTANEOUS SOLUTION INSULIN DETEMIR Inactive PROMETHAZINE-CODEINE 6.25-10 MG/5ML ORAL SYRUP 1 tsp po q 6 hours prn cough PROMETHAZINE-CODEINE 6.25-10 MG/5ML ORAL SYRUP 342941 PROMETHAZINE-CODEINE Inactive GUAIFENESIN ER 600 MG ORAL TABLET EXTENDED RELEASE 12 HOUR 1 tablet by mouth twice daily if needed for cough GUAIFENESIN ER 600 MG ORAL TABLET EXTENDED RELEASE 12 HOUR GUAIFENESIN Inactive ALBUTEROL SULFATE (2.5 MG/3ML) 0.083% INHALATION NEBULIZATION SOLUTION one vial per nebulizer TID and PRN cough/soa ALBUTEROL SULFATE (2.5 MG/3ML) 0.083% INHALATION NEBULIZATION SOLUTION 755272 ALBUTEROL SULFATE Inactive ZYPREXA 5 MG ORAL TABLET take one tablet by mouth every evening ZYPREXA 5 MG ORAL TABLET 113375 OLANZAPINE Inactive HYDROCODONE-ACETAMINOPHEN 5-325 MG ORAL TABLET take one tablet by mouth every four hours as needed for pain HYDROCODONE-ACETAMINOPHEN 5-325 MG ORAL TABLET 137653 HYDROCODONE-ACETAMINOPHEN Inactive BACTROBAN 2 % EXTERNAL CREAM apply to ear and nose twice daily BACTROBAN 2 % EXTERNAL CREAM 995843 MUPIROCIN CALCIUM Inactive CYCLOBENZAPRINE HCL 10 MG ORAL TABLET 1/2 tablet by mouth every 8 hours as needed for muscle spasms CYCLOBENZAPRINE HCL 10 MG ORAL TABLET 407430 CYCLOBENZAPRINE HCL Inactive NAVANE 10 MG CAPS 1/2 tablet twice a day NAVANE 10 MG CAPS THIOTHIXENE Inactive DOXEPIN HCL 10 MG ORAL CAPSULE Take 1 tablet by mouth daily DOXEPIN HCL 10 MG ORAL CAPSULE 0954646 DOXEPIN HCL Inactive HYDROCODONE-ACETAMINOPHEN 7.5-325 MG ORAL TABLET 1 four times a day as needed for pain HYDROCODONE-ACETAMINOPHEN 7.5-325 MG ORAL TABLET 796650 HYDROCODONE-ACETAMINOPHEN Inactive NIACIN ER 500 MG ORAL [...] hr. PRN ACETAMINOPHEN 500 MG ORAL TABLET 516615 ACETAMINOPHEN Inactive SAPHRIS 5 MG SUBLINGUAL TABLET SUBLINGUAL by mouth twice a day SAPHRIS 5 MG SUBLINGUAL TABLET SUBLINGUAL ASENAPINE MALEATE Inactive NIACIN ER 500 MG ORAL TABLET EXTENDED RELEASE 4 qHS (for triglycerides) 01/13 NIACIN ER 500 MG ORAL TABLET EXTENDED RELEASE NIACIN Inactive IBUPROFEN 200 MG ORAL TABLET 1 Q 6 hr. PRN IBUPROFEN 200 MG ORAL TABLET 423078 IBUPROFEN Inactive FLUTICASONE PROPIONATE 50 MCG/ACT NASAL SUSPENSION 2 sprays each nostril qDay x 30 days FLUTICASONE PROPIONATE 50 MCG/ACT NASAL SUSPENSION 0498774 FLUTICASONE PROPIONATE Inactive EQL TRUETEST TEST IN [...] at HS ZYPREXA 7.5 MG ORAL TABLET 884938 OLANZAPINE Inactive THIOTHIXENE 5 MG ORAL CAPSULE by mouth twice a day THIOTHIXENE 5 MG ORAL CAPSULE 723230 THIOTHIXENE Inactive UROXATRAL 10 MG ORAL TABLET EXTENDED RELEASE 24 HOUR Take 1 tablet by mouth daily UROXATRAL 10 MG ORAL TABLET EXTENDED RELEASE 24 HOUR ALFUZOSIN HCL Inactive ACYCLOVIR 400 MG ORAL TABLET 1 pill three times daily x 5 days, for cold sore outbreak ACYCLOVIR 400 MG ORAL TABLET 013620 ACYCLOVIR Inactive TRUETEST TEST IN VITRO STRIP check sugars 4x/day TRUETEST TEST IN VITRO STRIP GLUCOSE BLOOD Inactive HUMALOG 100 UNIT/ML SUBCUTANEOUS SOLUTION Take 20 units with breakfast, 10u with lunch and suppetr. HUMALOG 100 UNIT/ML SUBCUTANEOUS SOLUTION INSULIN LISPRO (HUMAN) Inactive CYCLOBENZAPRINE HCL 10 MG ORAL TABLET 1 tablet by mouth three times daily, scheduled CYCLOBENZAPRINE HCL 10 MG ORAL TABLET 168332 CYCLOBENZAPRINE HCL Inactive ACCU-CHEK ROSA IN VITRO STRIP use strips with device to check blood sugars 3 times daily ACCU-CHEK ROSA IN VITRO STRIP GLUCOSE BLOOD Inactive ACCU-CHEK ROSA DEVICE Use device to check blood sugars ACCU-CHEK ROSA DEVICE BLOOD GLUCOSE MONITORING SUPPL Inactive FLUVOXAMINE MALEATE 100 MG ORAL TABLET Take 1/2 tab at noon 03/04 FLUVOXAMINE MALEATE 100 MG ORAL TABLET 907625 FLUVOXAMINE MALEATE Inactive FLUVOXAMINE MALEATE 100 MG ORAL TABLET Take one (1) tablet by mouth am, 1/2 at noon FLUVOXAMINE MALEATE 100 MG ORAL TABLET 924402 FLUVOXAMINE MALEATE Inactive BACTROBAN 2 % EXTERNAL CREAM Apply to affected area BID for up to 10 days BACTROBAN 2 % EXTERNAL CREAM 121309 MUPIROCIN CALCIUM Inactive NOVOFINE 32G X 6 MM use one four times per day NOVOFINE 32G X 6 MM INSULIN PEN NEEDLE Inactive TRAZODONE HCL 100 MG ORAL TABLET 1 tab by mouth for sleep TRAZODONE HCL 100 MG ORAL TABLET 861230 TRAZODONE HCL Inactive LOVAZA 1 GM ORAL CAPSULE 4 daily (for triglycerides) LOVAZA 1 GM ORAL CAPSULE 416373 [id number] ETHYL ESTERS Inactive METFORMIN HCL ER 500 [...] bladder TOLTERODINE TARTRATE 2 MG ORAL TABLET 681183 TOLTERODINE TARTRATE Inactive COLACE 100 MG ORAL CAPSULE 1 pill by mouth twice daily, for constipation 2014 COLACE 100 MG ORAL CAPSULE 9631748 DOCUSATE SODIUM Inactive LOMOTIL 2.5-0.025 MG ORAL TABLET take 1-2 tabs PO after each stool, no more than 8 in 24 hours LOMOTIL 2.5-0.025 MG ORAL TABLET 3299470 DIPHENOXYLATE-ATROPINE Inactive ZOFRAN 4 MG ORAL TABLET 1 po q4hr PRN Nausea ZOFRAN 4 MG ORAL TABLET 957041 ONDANSETRON HCL Inactive HYDROCODONE-ACETAMINOPHEN 5-325 MG ORAL TABLET 2 tabs by mouth three times daily for pain HYDROCODONE-ACETAMINOPHEN 5-325 MG ORAL TABLET 831528 HYDROCODONE-ACETAMINOPHEN Inactive ZOLPIDEM TARTRATE 10 MG ORAL TABLET take at bedtime ZOLPIDEM TARTRATE 10 MG ORAL TABLET 811950 ZOLPIDEM TARTRATE Inactive LISINOPRIL 20 MG ORAL TABLET 1 BID LISINOPRIL 20 MG ORAL TABLET 469983 LISINOPRIL Inactive TRAVATAN Z 0.004 % OPHTHALMIC SOLUTION 1 gtt each eye daily TRAVATAN Z 0.004 % OPHTHALMIC SOLUTION TRAVOPROST Inactive LATUDA 60 MG ORAL TABLET Take one by mouth daily LATUDA 60 MG ORAL TABLET LURASIDONE HCL Inactive FLUVOXAMINE MALEATE 50 MG ORAL TABLET 1 tab by mouth daily 04/01 FLUVOXAMINE MALEATE 50 MG ORAL TABLET 792254 FLUVOXAMINE MALEATE Inactive LEVEMIR FLEXTOUCH 100 UNIT/ML [...] 30G 3 a day TRUEPLUS LANCETS 30G [id number] LANCETS Inactive AMITIZA 24 MCG ORAL CAPSULE [...] noon FLUVOXAMINE MALEATE 100 MG ORAL TABLET 318702 FLUVOXAMINE MALEATE Inactive FLONASE ALLERGY RELIEF 50 MCG/ACT NASAL SUSPENSION One spray each nostril BID x 1 week then daily FLONASE ALLERGY RELIEF 50 MCG/ACT NASAL SUSPENSION [id number] FLUTICASONE PROPIONATE Inactive IMODIUM A-D 2 MG ORAL TABLET 1 tab QID as needed IMODIUM A-D 2 MG ORAL TABLET 269923 LOPERAMIDE HCL Inactive MYLANTA GAS RELIEF MAXIMUM STR 125 MG ORAL CAPSULE 30cc every 4 hours prn MYLANTA GAS RELIEF MAXIMUM STR 125 MG ORAL CAPSULE SIMETHICONE Inactive TRUEPLUS LANCETS 30G 3x a day TRUEPLUS LANCETS 30G [id number] LANCETS Inactive TRUE METRIX BLOOD GLUCOSE TEST [...] headaches TRAZODONE HCL 100 MG ORAL TABLET 558558 TRAZODONE HCL Inactive TYLENOL 8 HOUR 650 [...] evening TAMSULOSIN HCL 0.4 MG ORAL CAPSULE 076346 TAMSULOSIN HCL Inactive [facility] MEL[facility] 3 MG ORAL TABLET give 1 tab by mouth at HS [facility] MELATONIN 3 MG ORAL TABLET 19901024 MELATONIN Inactive SEROQUEL 100 MG ORAL TABLET 1 tab daily SEROQUEL 100 MG ORAL TABLET 518271 QUETIAPINE FUMARATE Inactive AMARYL 2 MG ORAL TABLET give 2.5 tabs PO daily AMARYL 2 MG ORAL TABLET 996931 GLIMEPIRIDE Inactive SEROQUEL 25 MG ORAL TABLET Take two tabs by mouth in the morning, take 4 tablets at night SEROQUEL 25 MG ORAL TABLET 649261 QUETIAPINE FUMARATE Inactive QUETIAPINE FUMARATE 25 MG ORAL TABLET 2 tabs BID QUETIAPINE FUMARATE 25 MG ORAL TABLET 954903 QUETIAPINE FUMARATE Inactive QUETIAPINE FUMARATE 100 MG ORAL TABLET 1 tab PO at HS QUETIAPINE FUMARATE 100 MG ORAL TABLET 673206 QUETIAPINE FUMARATE Inactive LATUDA 40 MG ORAL TABLET 1.5 tab by mouth in the afternoon 05/23 LATUDA 40 MG ORAL TABLET LURASIDONE HCL Inactive TOPAMAX 25 MG ORAL TABLET 1 tab BID PRN TOPAMAX 25 MG ORAL TABLET 935178 TOPIRAMATE Inactive EFFEXOR XR 150 MG ORAL [...] mouth q12h, for constipation MIRALAX ORAL POWDER 285554 POLYETHYLENE GLYCOL 3350 Inactive CEFDINIR 300 MG ORAL CAPSULE by mouth twice a day CEFDINIR 300 MG ORAL CAPSULE 008812 CEFDINIR Inactive AZITHROMYCIN 500 MG INTRAVENOUS SOLUTION RECONSTITUTED 1 po q day AZITHROMYCIN 500 MG INTRAVENOUS SOLUTION RECONSTITUTED [id number] AZITHROMYCIN Inactive AMOXICILLIN 500 MG ORAL CAPSULE 2 po BID x 10 days AMOXICILLIN 500 MG ORAL CAPSULE 425406 AMOXICILLIN Inactive PENICILLIN V POTASSIUM 500 MG ORAL TABLET 1 pill by mouth three times daily PENICILLIN V POTASSIUM 500 MG ORAL TABLET 088956 PENICILLIN V POTASSIUM Inactive KEFLEX 500 MG ORAL CAPSULE 1 po BID x 7 days KEFLEX 500 MG ORAL CAPSULE 749170 CEPHALEXIN Inactive Immunizations Vaccine Administration Date Value [...] Fluvirin, Fluarix, Agriflu(>=18 yo)) Fluzone (>3 yrs.) [[id number]] Influenza, seasonal, injectable pneumococcal immunization administered Pneumovax [...] ... - Chemistry sodium, serum 135 mmol/L [phone]/08/22 carbon dioxide, venous blood 28.4 mmol/L 21.0-32.0 [...] mg/g {creat} 0-29 cholesterol, serum 263 mg/dL [phone]/08/22 triglyceride, serum, fasting 1312 mg/dL 30-200 HDL [...] 80 mg/L 0-19 Office Visit: TCM from detention - Lab PSA (prostate specific antigent), recommendation and action PSA ordered Encounters Code Encounter Date Provider Facility CPT-27141 Level 3 Est. Patient 16:25:15 DRAINAGE DESIGN COORDINATOR [facility]PT-89563 [id number] Vst-Est Level IV 15:10:01 DRAINAGE DESIGN COORDINATOR Mason Loredo MD [facility] CPT-76221 [id number] Vst-Est Level III 11:00:25 CDT Shavonne Feliciano PA-C [facility] CPT-54636 Level 3 Est. Patient 09:12:14 DRAINAGE DESIGN COORDINATOR Mima Erazo APRN [facility] [place] CPT-39298 Level 3 Est. Patient 16:52:51 CDT Vanessa Hickey MD [facility] CPT-73891 Level 3 Est. Patient 17:40:16 CDT Mima Vadimjerrell [facility] CPT-41276 Level 3 Est. Patient 14:34:52 CDT Vanessa Hickey MD [facility]-95720 Level 3 Est. Patient 16:27:51 CDT Mima Jeffliudmila [facility] CPT-54943 Level 3 Est. Patient 14:39:00 DRAINAGE DESIGN COORDINATOR Vanessa Hickey MD [facility]-60771 Level 2 Est. Patient 18:43:34 CDT Mima Erazo [facility] CPT-80071 Level 3 Est. Patient 16:22:09 CDT Cherelle Avila [facility] CPT-37954 Level 4 Est. Patient 17:55:14 CDT Mima Erazo [facility] CPT-96987 Level 2 Est. Patient 17:13:21 CDT Alina Castaneda MD [facility]-91053 Level 3 Est. Patient 14:46:15 CDT Vanessa Hickey MD [facility]-32777 Level 3 Est. Patient 09:34:56 CDT Alina Castaneda MD [facility]-15510 Level 3 Est. Patient 21:40:19 CDT Mima Vadimjerrell [facility] CPT-87138 Level 3 Est. Patient 09:26:40 CDT Marvel Charles [facility]-23730 Level 3 Est. Patient 12:36:43 CDT Vanessa Hickey MD [facility]-84035 Level 3 Est. Patient 12:57:49 CDT Vanessa Hickey MD [facility]-73602 Level 3 Est. Patient 00:28:25 CDT Alina Castaneda MD [facility]34231 Level 2 Est. Patient 12:52:14 CDT Alina Castaneda MD [facility]-16210 Level 3 Est. Patient 11:51:18 DRAINAGE DESIGN COORDINATOR Alina Castaneda MD [facility]-93275 Level 3 Est. Patient 10:09:22 DRAINAGE DESIGN COORDINATOR Alina Castaneda MD [facility]56419 Level 3 Est. Patient 14:36:26 DRAINAGE DESIGN COORDINATOR Marvel Charles [facility]-56283 Level 3 Est. Patient 13:34:47 DRAINAGE DESIGN COORDINATOR Alina Castaneda MD [facility]02445 Level 3 Est. Patient 19:52:08 DRAINAGE DESIGN COORDINATOR Alina Castaneda MD [facility]99958 Level 3 Est. Patient 10:01:51 DRAINAGE DESIGN [facility]ATOR [facility]-76188 Level 3 Est. Patient 21:54:06 CDT Vanessa Hickey MD [facility]-62209 Level 3 Est. Patient 08:54:46 CDT Alina Castaneda MD [facility]-16007 Level 3 Est. Patient 09:32:11 [facility]-43856 Level 3 Est. Patient 12:02:49 CDT Alina Castaneda MD [facility]-21626 Level 3 Est. Patient 19:17:33 CDT Alina Castaneda MD [facility]-33746 Level 3 Est. Patient 13:19:10 CDT Marvel Charles [facility]81259 Level 3 Est. Patient 08:20:05 CDT Alina Castaneda MD [facility]93224 Level 3 Est. Patient 15:17:18 CDT Alina Castaneda MD [facility]-09868 Level 3 Est. Patient 14:25:36 DRAINAGE DESIGN COORDINATOR Marvel Charles [facility]-37054 Level 3 Est. Patient 10:09:15 DRAINAGE DESIGN COORDINATOR Marvel Charles [facility]-84311 Level 3 Est. Patient 21:28:43 CDT Alina Castaneda MD [facility]-92091 Level 3 Est. Patient 15:20:11 [facility]T [facility] 4 Est. Patient 19:08:12 CDT Alina Castaneda MD [facility]-78042 Level 3 Est. Patient 15:06:39 [facility]-44978 Level 4 Est. Patient 17:48:15 CDT Alina Castaneda MD [facility]-86259 Level 3 Est. Patient 14:53:49 CDT Alina Castaneda MD [facility]-66343 Level 3 Est. Patient 09:35:16 CDT Alina Castaneda MD [facility]-55414 Level 3 Est. Patient 12:23:22 CDT Alina Castaneda MD [facility]-65396 Level 3 Est. Patient 16:19:15 CDT Alina Castaneda MD [facility]-16814 Level 3 Est. Patient 21:39:56 DRAINAGE DESIGN COORDINATOR Alina Castaneda MD [facility]-83579 Level 4 Est. Patient 14:12:56 DRAINAGE DESIGN COORDINATOR Alina Castaneda MD [facility]-52245 Level 2 Est. Patient 15:34:57 DRAINAGE DESIGN COORDINATOR Alina Castaneda MD [facility]-31084 Level 3 Est. Patient 12:17:04 DRAINAGE DESIGN COORDINATOR Alina Castaneda MD [facility]40075 Level 3 Est. Patient 09:18:18 DRAINAGE DESIGN COORDINATOR Marvel Charles [facility]-79813 Level 2 Est. Patient 21:50:24 CDT Alina Castaneda MD [facility]79059 Level 3 Est. Patient 09:17:28 CDT Marvel Charles [facility]-83455 Level 4 Est. Patient 18:54:02 CDT Alina Castaneda MD [facility]46181 Level 3 Est. Patient 10:47:10 CDT Alina Castaneda MD [facility]04589 Level 3 Est. Patient 09:22:20 CDT Marvel Charles [facility]-93003 Level 3 Est. Patient 16:39:43 CDT [facility]-68427 Level 3 Est. Patient 16:05:16 CDT Alina Castaneda MD [facility]-06883 Level 3 Est. Patient 00:29:15 CDT Alina Castaneda MD [facility]22327 Level 3 Est. Patient 10:49:22 DRAINAGE DESIGN COORDINATOR Marvel Charles [facility]88424 Level 3 Est. Patient 21:30:19 DRAINAGE DESIGN COORDINATOR Alina Castaneda MD [facility]33783 Level 4 Est. Patient 17:04:11 DRAINAGE DESIGN COORDINATOR Marvel Charles [facility]81330 Level 3 Est. Patient 15:34:11 DRAINAGE DESIGN COORDINATOR Marvel MENDOZAP [facility] CPT-23346 Level 2 Est. Patient 12:51:58 DRAINAGE DESIGN COORDINATOR Alina Castaneda MD PhD [facility] CPT-19147 Level 3 Est. Patient 13:20:01 DRAINAGE DESIGN COORDINATOR Alina Castaneda MD PhD [facility] CPT-00671 Level 3 Est. Patient 09:23:35 CDT Alina Castaneda MD PhD [facility] Procedures Code Procedure Name Date Entry Date Standard Description CPT-76449 Level 2 Fdc 14:06:10 DRAINAGE DESIGN COORDINATOR CPT-G0439 [facility] Annual Wellness Exam 15:49:52 DRAINAGE DESIGN COORDINATOR CPT-47962 Level 3 Fdc 13:20:19 CDT CPT-TCMM Transitional Care Mgmt-Moderate 12:32:19 CDT CPT-30800 Level 2 Fdc 09:01:11 CDT CPT-48761 HGBA1C - LAB USE ONLY 09:30:27 DRAINAGE DESIGN COORDINATOR CPT-82237 BMP - LAB USE ONLY 09:30:27 DRAINAGE DESIGN COORDINATOR CPT-86917 Venipuncture Draw Fee 09:30:26 DRAINAGE DESIGN COORDINATOR CPT-TCMM Transitional Care Mgmt-Moderate 10:25:31 CDT CPT-39639 Bladder Scan 14:34:53 CDT CPT-39600 Bladder Scan 14:39:01 DRAINAGE DESIGN COORDINATOR CPT-TCMM Transitional Care Mgmt-Moderate 10:30:19 DRAINAGE DESIGN COORDINATOR CPT-24193 Bladder Scan 12:36:44 CDT CPT-62690 Bladder Scan 21:54:06 CDT CPT-G0008 Administration of Influenza Virus Vaccine 13:05:26 CDT CPT-51028 Fluzone Quadrivalent Intramuscular Suspension 0.5 ML 13: 05:26 CDT CPT-77939 Administration single or combination vaccine inc oral 11 :49:51 CDT CPT-88091 Pneumovax 11:49:51 CDT CPT-10298 Ribs unilateral 2V 12:37:22 DRAINAGE DESIGN COORDINATOR CPT-38331 Chest 2V Frontal and Lat 17:15:26 CDT CPT-17458 Abx/Therapy Injection 18:54:02 CDT CPT-J0696 Rocephin 1000 mg (Ceftriaxone) 16:00:32 CDT CPT-45688 Chest 2V Frontal and Lat 15:26:45 CDT CPT-11603 Chest 2V Frontal and Lat 10:23:27 CDT CPT-25533 Venipuncture Draw Fee 10:11:00 CDT CPT-62979 Administration single or combination vaccine inc oral 11 :56:38 CDT CPT-34379 Influenza split virus > age 3 11:56:38 CDT CPT-38819 Venipuncture Draw Fee 08:49:54 DRAINAGE DESIGN COORDINATOR CPT-39818 EKG Trac and Interp 17:54:19 DRAINAGE DESIGN COORDINATOR
--- OUTSIDE RECORDS SUMMARY | 2018-07-02 14:40 | XMS REPORT | Clinical Summary ---
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 Benign paroxysmal positional vertigo Vertigo, benign paroxysmal position 386.11 Inactive Mima Erazo SUPERVISOR PA[employer]ROLL Benign paroxysmal positional vertigo High-risk sexual behavior [...] specified personal history presenting hazards to health ANXIETY DISORDER ICD-300.00 Inactive Shavonne Feliciano PA-C DIABETES, TYPE 2 ICD-250.00 Inactive Alina Castaneda MD PhD HYPERTENSION ICD-401.9 Inactive Alina Castaneda MD PhD URI ICD-465.9 Inactive Alina Castaneda MD PhD WOUND, OPEN, NOSE ICD-873.20 Inactive Alina Castaneda MD PhD ANEMIA ICD-285.9 Inactive Shavonne Feliciano PA-C 2017 FH STROKE ICD-V17.1 Inactive Marvel MARROQUIN DIABETES [...] FATIGUE ICD-780.79 Inactive Alina Castaneda MD PhD ABNORMAL HEART RHYTHMS ICD-427.9 Inactive Alina Castaneda MD PhD SKIN LESION ICD-709.9 Inactive Alina Castaneda MD PhD HEADACHE ICD-784.0 Inactive Shavonne Feliciano PA-C RIB PAIN, RIGHT SIDED ICD-786.50 Inactive Alina Castaneda MD PhD DIABETIC HYPOGLYCEMIA, TYPE II ICD-250.80 Inactive Marvel 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 Inactive Alina Castaneda MD PhD PNEUMONIA, ORGANISM UNSPECIFIED ICD-486 Inactive Alina Castaneda MD PhD Recurrent isolated sleep paralysis ICD-327.43 Inactive Shavonne Feliciano PA-C SINUSITIS, ACUTE ICD-461.9 Inactive Alina Castaneda MD PhD Diabetes mellitus, type II, uncontrolled ICD-250.02 Inactive Alina Castaneda MD PhD Dizziness ICD-780.4 [...] Index 31.0-31.9 Adult Inactive Gabrielle Marquez MA SPECIAL SCREENING FOR MALIGNANT NEOPLASM OF PROSTATE ICD-V76.44 Inactive Alina Castaneda MD PhD Hypoglycemia ICD-251.2 Inactive Alina Castaneda MD PhD Body Mass Index 30.0-30.9 Adult Inactive Paige Lange MA Medication List Medication Instructions Start Date Stop Date Generic Name NDC Status Provider Patient Instruction MIRALAX ORAL POWDER 17 gram by mouth once daily POLYETHYLENE GLYCOL 3350 [id number] Active Cherelle Souza RN Active CLONAZEPAM 1 MG ORAL TABLET 1 tablet by mouth three times daily CLONAZEPAM 76563251810 Active Cherelle Souza RN Active MIRALAX ORAL POWDER 17g by mouth q12h, for constipation POLYETHYLENE GLYCOL 3350 94706770227 No Longer Active Cherelle Souza RN Active LACTOBACILLUS ORAL TABLET 1 tablet by mouth at bedtime for probiotic LACTOBACILLUS 28351119002 Active Cherelle Souza RN Active D 2000 2000 UNIT ORAL TABLET 1 tablet by mouth twice daily CHOLECALCIFEROL 09472600334 Active Cherelle Souza RN Active DIVALPROEX SODIUM ER 500 MG ORAL TABLET EXTENDED RELEASE 24 HOUR 3 tablets by mouth at bedtime for Mood DIVALPROEX SODIUM 57089576296 Active Cherelle Souza RN Active GLIMEPIRIDE 4 MG ORAL TABLET 1 tablet by mouth once daily GLIMEPIRIDE 86234640450 Active Cherelle Souza RN Active VENLAFAXINE HCL ER 150 MG ORAL CAPSULE EXTENDED RELEASE 24 HOUR 1 tablet by mouth once daily VENLAFAXINE HCL 47996299502 Active Cherelle Souza RN Active RISPERDAL 2 MG ORAL TABLET Take 1 tablet by mouth three times a day RISPERIDONE 65118371556 Active May Ledezma MA Active [facility] MILK OF MAGNESIA 400 MG/5ML ORAL SUSPENSION 30ml by mouth bid prn MAGNESIUM HYDROXIDE 43043294518 No Longer Active Mya Ledezma MA Active [facility] MELATONIN 3 MG ORAL TABLET 1 tab nightly MELATONIN 57060001198 No Longer Active Mya Ledezma MA Active AMBIEN 10 MG ORAL TABLET 1 at night as needed for sleep ZOLPIDEM TARTRATE 50399357176 Active Mason Loredo MD Active VERAPAMIL HCL ER 180 MG ORAL TABLET EXTENDED RELEASE 1 pill by mouth twice daily, for migraine prevention VERAPAMIL HCL 55293103264 No Longer Active Mason Loredo MD Active EFFEXOR XR 150 MG ORAL CAPSULE EXTENDED RELEASE 24 HOUR 1 tab daily VENLAFAXINE HCL 76281431790 No Longer Active Mason Loredo MD Active TOPAMAX 25 MG ORAL TABLET 1 tab BID PRN TOPIRAMATE 44176644871 No Longer Active Mason Loredo MD Active LATUDA 40 MG ORAL TABLET 1.5 tab by mouth in the afternoon 05/23 LURASIDONE HCL 83609524383 No Longer Active Mason Loredo MD Active QUETIAPINE FUMARATE 100 MG ORAL TABLET 1 tab PO at HS QUETIAPINE FUMARATE 47061472844 No Longer Active Mason Loredo MD Active QUETIAPINE FUMARATE 25 MG ORAL TABLET 2 tabs BID QUETIAPINE FUMARATE 25503949257 No Longer Active Mason Loredo MD Active ATORVASTATIN CALCIUM 10 MG ORAL TABLET Take 1 tablet by mouth daily. Recheck labs in 3 months ATORVASTATIN CALCIUM 15660075198 Active Mya Ledezma MA Active VERAPAMIL HCL ER 180 MG ORAL TABLET EXTENDED RELEASE 1 tab BID VERAPAMIL HCL 70517552803 Active Shavonne Feliciano PA-C Active SEROQUEL 25 MG ORAL TABLET Take two tabs by mouth in the morning, take 4 tablets at night QUETIAPINE FUMARATE 16678024648 No Longer Active Shavonne Feliciano PA-C Active AMARYL 2 MG ORAL TABLET give 2.5 tabs PO daily GLIMEPIRIDE 91449116042 No Longer Active Shavonne Feliciano PA-C Active FENOFIBRATE 145 MG ORAL TABLET 1 tab PO in the morning FENOFIBRATE 93039174657 Active Shavonne Feliciano PA-C Active SEROQUEL 100 MG ORAL TABLET 1 tab daily QUETIAPINE FUMARATE 01457989967 No Longer Active Shavonne Feliciano PA-C Active [facility] MELATONIN 3 MG ORAL TABLET give 1 tab by mouth at HS MELATONIN 98126913340 No Longer Active Gabrielle Marquez MA Active NOVOLOG FLEXPEN 100 UNIT/ML SUBCUTANEOUS SOLUTION PEN-INJECTOR sliding scale INSULIN ASPART 85233170572 Active Gabrielle Marquez MA Active METFORMIN HCL 1000 MG ORAL TABLET 1 tab by mouth BID METFORMIN HCL 30350060409 Active Gabrielleadrienne Marquez MA Active TAMSULOSIN HCL 0.4 MG ORAL CAPSULE give 2 capsules PO each evening TAMSULOSIN HCL 73618636394 No Longer Active Gabrielleadrienne Marquez MA Active VITAMIN D 2000 UNIT ORAL CAPSULE Take one by mouth daily CHOLECALCIFEROL 35124358181 No Longer Active Gabrielleadrienne Marquez MA Active LEVEMIR 100 UNIT/ML SUBCUTANEOUS SOLUTION 10 u at bedtime INSULIN DETEMIR 27156698637 Active Gabrielle Littleananda NOEL Active TAMSULOSIN HCL 0.4 MG ORAL CAPSULE 2 every night for urine flow TAMSULOSIN HCL 86830768581 Active Gabrielle Sidneyananda NOEL Active ALIGN 4 MG ORAL CAPSULE 1 tab at hs PROBIOTIC PRODUCT 88604507288 No Longer Active Gabrielle Marquez MA Active OCEAN NASAL SPRAY SOLUTION 2 sprays in both nostrils every 8 hours as needed for dry mucous membranes SALINE SOLN 27228856765 Active Mason Loredo MD Active BETHANECHOL CHLORIDE 25 MG ORAL TABLET Take 1 tablet mouth four times a day BETHANECHOL CHLORIDE 87916102876 Active Mason Loredo MD Active [facility] LUBRICANT EYE DROPS 0.4-0.3 % OPHTHALMIC SOLUTION POLYETHYL GLYCOL-PROPYL GLYCOL 11753950986 No Longer Active Mason Loredo MD Active TYLENOL 8 HOUR 650 MG ORAL TABLET EXTENDED RELEASE 1 tab QID prn ACETAMINOPHEN 21275770028 No Longer Active Mason Loredo MD Active TIMOPTIC OCUDOSE 0.5 % OPHTHALMIC SOLUTION instill one drop into both eyes q12H TIMOLOL MALEATE 97574345217 Active Mason Loredo MD Active TRAZODONE HCL 100 MG ORAL TABLET 1 every night to prevent headaches TRAZODONE HCL 52171680457 No Longer Active Mason Loredo MD Active TRAVATAN Z 0.004 % OPHTHALMIC SOLUTION 1 drop each eye daily 2017 TRAVOPROST 06224809606 No Longer Active Mason Loredo MD Active LATUDA 60 MG ORAL TABLET 1 tab daily LURASIDONE HCL 27984704125 No Longer Active Mason Loredo MD Active MORPHINE SULFATE ER 30 MG ORAL TABLET EXTENDED RELEASE Take one capsule BID MORPHINE SULFATE 18298266241 No Longer Active Mason Loredo MD Active TRUE METRIX BLOOD GLUCOSE TEST IN VITRO STRIP Check blood sugars 3x/day. 2015 GLUCOSE BLOOD 90732538017 No Longer Active Mason Loredo MD Active TRUEPLUS LANCETS 30G 3x a day LANCETS 64760889339 No Longer Active Mason Loredo MD Active MYLANTA GAS RELIEF MAXIMUM STR 125 MG ORAL CAPSULE 30cc every 4 hours prn SIMETHICONE 99426610995 No Longer Active Mason Loredo MD Active IMODIUM A-D 2 MG ORAL TABLET 1 tab QID as needed LOPERAMIDE HCL 45263541473 No Longer Active Mason Loredo MD Active FLONASE ALLERGY RELIEF 50 MCG/ACT NASAL SUSPENSION One spray each nostril BID x 1 week then daily FLUTICASONE PROPIONATE 27107020050 No Longer Active Mason Loredo MD Active FLUVOXAMINE MALEATE 100 MG ORAL TABLET take one tab every AM et HS, and take 1 /2 tab at noon FLUVOXAMINE MALEATE 70020583918 No Longer Active Mason Loredo MD Active BD PEN NEEDLE MINI U/F 31G X 5 MM 4 a day INSULIN PEN NEEDLE 30354862066 No Longer Active Mason Loredo MD Active AMITIZA 24 MCG ORAL CAPSULE Take one capsule BID for constipation LUBIPROSTONE 83361767102 No Longer Active Mason Loredo MD Active TRUEPLUS LANCETS 30G 3 a day LANCETS 66482355562 No Longer Active Mason Loredo MD Active CORICIDIN HBP CONGESTION/COUGH 10-200 MG ORAL CAPSULE Take as directed on box as needed for cold/flu symptoms DEXTROMETHORPHAN- GUAIFENESIN 53371410864 No Longer Active Mason Loredo MD Active OMEGA-3 300 MG ORAL CAPSULE 4 caps by mouth daily OMEGA-3 FATTY ACIDS 39645743490 No Longer Active Mason Loredo MD Active HUMALOG KWIKPEN 100 UNIT/ML SUBCUTANEOUS SOLUTION PEN-INJECTOR sliding scale if needed INSULIN LISPRO (HUMAN) 17463285803 No Longer Active Mason Loredo MD Active TRUETEST TEST IN VITRO STRIP check blood sugars 3x/day GLUCOSE BLOOD 55826102607 No Longer Active Mason Loredo MD Active ALFUZOSIN HCL ER 10 MG ORAL TABLET EXTENDED RELEASE 24 HOUR 1 tablet daily ALFUZOSIN HCL 58919603753 No Longer Active Mason Loredo MD Active BD INSULIN SYRINGE 28G X 1/2" 1 ML 1 four times per day INSULIN SYRINGE-NEEDLE U-100 27852160354 No Longer Active Mason Loredo MD Active LEVEMIR FLEXTOUCH 100 UNIT/ML SUBCUTANEOUS SOLUTION PEN-INJECTOR 60 units SQ each evening, for diabetes INSULIN DETEMIR 28592072363 No Longer Active Mason Loredo MD Active LACTULOSE 20 GM/30ML ORAL SOLUTION give 30 Ml PO BID PRN LACTULOSE 26065951201 Active Mason Loredo MD Active COLACE 100 MG ORAL CAPSULE 1 tab BID PRN DOCUSATE SODIUM 31614699395 Active Mason Loredo MD Active LATANOPROST 0.005 % OPHTHALMIC SOLUTION instill 1 drop in both eyes at bed time LATANOPROST 48364209555 Active Mason Loredo MD Active IBUPROFEN 400 MG ORAL TABLET 1 tab Q6H PRN IBUPROFEN 25652507210 Active Mason Loredo MD Active FLUVOXAMINE MALEATE 50 MG ORAL TABLET 1 tab by mouth daily 04/01 FLUVOXAMINE MALEATE 90778961520 No Longer Active Mima Erazo APRN Active TRUE METRIX METER w/Device KIT Check blood sugars 3x/day BLOOD GLUCOSE MONITORING SUPPL 10926280600 Active Marvel Mackenzieglari LAP POLISHER Active LATUDA 60 MG ORAL TABLET Take one by mouth daily LURASIDONE HCL 72847775846 No Longer Active Mima Erazo APRN Active TRAVATAN Z 0.004 % OPHTHALMIC SOLUTION 1 gtt each eye daily TRAVOPROST 25072103280 No Longer Active Mason Loredo MD Active LISINOPRIL 20 MG ORAL TABLET 1 BID LISINOPRIL 21401973128 No Longer Active Mason Loredo MD Active ZOLPIDEM TARTRATE 10 MG ORAL TABLET take at bedtime ZOLPIDEM TARTRATE 90201504454 No Longer Active Mason Loredo MD Active HYDROCODONE-ACETAMINOPHEN 5-325 MG ORAL TABLET 2 tabs by mouth three times daily for pain HYDROCODONE-ACETAMINOPHEN 30908793284 No Longer Active Mason Loredo MD Active ZOFRAN 4 MG ORAL TABLET 1 po q4hr PRN Nausea ONDANSETRON HCL 69175771348 No Longer Active Mason Loredo MD Active LOMOTIL 2.5-0.025 MG ORAL TABLET take 1-2 tabs PO after each stool, no more than 8 in 24 hours DIPHENOXYLATE-ATROPINE 21177034656 No Longer Active Mason Loredo MD Active COLACE 100 MG ORAL CAPSULE 1 pill by mouth twice daily, for constipation 2014 DOCUSATE SODIUM 85186551624 No Longer Active Mima Yokum SUPERVISOR PAYROLL Active TOLTERODINE TARTRATE 2 MG ORAL TABLET 1 pill twice daily, for bladder TOLTERODINE TARTRATE 43938835658 No Longer Active Vanessa Hickey MD Active AMITIZA 24 MCG ORAL CAPSULE Take one capsule BID for constipation. LUBIPROSTONE 75469249008 No Longer Active Vanessa Hickey MD Active METOPROLOL SUCCINATE ER 100 MG ORAL TABLET EXTENDED RELEASE 24 HOUR 1 by mouth daily for blood pressure METOPROLOL SUCCINATE 76109505686 No Longer Active Grace Azam RMA Active METFORMIN HCL ER 500 MG ORAL TABLET EXTENDED RELEASE 24 HOUR Take three tablets by mouth everyday METFORMIN HCL 14949926776 No Longer Active Grace Azam RMA Active LOVAZA 1 GM ORAL CAPSULE 4 daily (for triglycerides) [id number] ETHYL ESTERS 71784969744 No Longer Active Garce Azam RMA Active TRAZODONE HCL 100 MG ORAL TABLET 1 tab by mouth for sleep TRAZODONE HCL 27235464760 No Longer Active Grace Azam RMA Active NOVOFINE 32G X 6 MM use one four times per day INSULIN PEN NEEDLE 96749718584 No Longer Active Grace Azam RMA Active BACTROBAN 2 % EXTERNAL CREAM Apply to affected area BID for up to 10 days MUPIROCIN CALCIUM 17326981341 No Longer Active Grace Azam RMA Active KEFLEX 500 MG ORAL CAPSULE 1 po BID x 7 days CEPHALEXIN 79043944171 No Longer Active Cherelle Avila APRN Active FLUVOXAMINE MALEATE 100 MG ORAL TABLET Take one (1) tablet by mouth am, 1/2 at noon FLUVOXAMINE MALEATE 48433477316 No Longer Active Mima Erazo APRN Active FLUVOXAMINE MALEATE 100 MG ORAL TABLET Take 1/2 tab at noon 03/04 FLUVOXAMINE MALEATE 48071940675 No Longer Active Cherelle Avila APRN Active ACCU-CHEK ROSA DEVICE Use device to check blood sugars BLOOD GLUCOSE MONITORING SUPPL 39728824320 No Longer Active Marvel MARROQUIN Active ACCU-CHEK ROSA IN VITRO STRIP use strips with device to check blood sugars 3 times daily GLUCOSE BLOOD 00066611272 No Longer Active Brooksjohn MARROQUIN Active CYCLOBENZAPRINE HCL 10 MG ORAL TABLET 1 tablet by mouth three times daily, scheduled CYCLOBENZAPRINE HCL 34718408427 No Longer Active Alina Castaneda MD PhD Active HUMALOG 100 UNIT/ML SUBCUTANEOUS SOLUTION Take 20 units with breakfast, 10u with lunch and suppetr. INSULIN LISPRO (HUMAN) 41384303980 No Longer Active Alina Castaneda MD PhD Active TRUETEST TEST IN VITRO STRIP check sugars 4x/day GLUCOSE BLOOD 60147774817 No Longer Active Alina Castaneda MD PhD Active MORPHINE SULFATE 30 MG ORAL TABLET 1 pill by mouth twice daily, for pain 2013 MORPHINE SULFATE 10022987739 No Longer Active Mason Loredo MD Active ACYCLOVIR 400 MG ORAL TABLET 1 pill three times daily x 5 days, for cold sore outbreak ACYCLOVIR 83300204875 No Longer Active Alina Castaneda MD PhD Active PENICILLIN V POTASSIUM 500 MG ORAL TABLET 1 pill by mouth three times daily PENICILLIN V POTASSIUM 73249293936 No Longer Active Alina Castaneda MD PhD Active UROXATRAL 10 MG ORAL TABLET EXTENDED RELEASE 24 HOUR Take 1 tablet by mouth daily ALFUZOSIN HCL 96699822883 No Longer Active Alina Castaneda MD PhD Active THIOTHIXENE 5 MG ORAL CAPSULE by mouth twice a day THIOTHIXENE 70598475395 No Longer Active Alina Castaneda MD PhD Active ZYPREXA 7.5 MG ORAL TABLET 1 at HS OLANZAPINE 75523537530 No Longer Active Alina Castaneda MD PhD Active DETROL LA 4 MG ORAL CAPSULE EXTENDED RELEASE 24 HOUR Take 1 tablet by mouth daily TOLTERODINE TARTRATE 56287775378 No Longer Active Alina Castaneda MD PhD Active TERESE CONTOUR TEST IN VITRO STRIP monitor blood sugars 3x/day GLUCOSE BLOOD 63154695609 No Longer Active Alina Castaneda MD PhD Active EQL TRUETEST TEST IN VITRO STRIP Test blood sugar TID GLUCOSE BLOOD 48260263414 No Longer Active Alina Castaneda MD PhD Active FLUTICASONE PROPIONATE 50 MCG/ACT NASAL SUSPENSION 2 sprays each nostril qDay x 30 days FLUTICASONE PROPIONATE 17217025551 No Longer Active Alina Castaneda MD PhD Active IBUPROFEN 200 MG ORAL TABLET 1 Q 6 hr. PRN IBUPROFEN 77435386434 No Longer Active Alina Castaneda MD PhD Active NIACIN ER 500 MG ORAL TABLET EXTENDED RELEASE 4 qHS (for triglycerides) 01/13 NIACIN 59613683486 No Longer Active Alina Castaneda MD PhD Active SAPHRIS 5 MG SUBLINGUAL TABLET SUBLINGUAL by mouth twice a day ASENAPINE MALEATE 45121964425 No Longer Active Maljohn Ziglari LAP POLISHER Active ACETAMINOPHEN 500 MG ORAL TABLET 2 Q 6 hr. PRN ACETAMINOPHEN 89829638691 No Longer Active Maliheh Ziglari LAP POLISHER Active ORPHENADRINE CITRATE ER 100 MG ORAL TABLET EXTENDED RELEASE 12 HOUR 1 every 12 hr. as needed ORPHENADRINE CITRATE 72498803730 No Longer Active Alina Castaneda MD PhD Active NIACIN ER 500 MG ORAL TABLET EXTENDED RELEASE 2 qHS NIACIN 83705608014 No Longer Active Alina Castaneda MD PhD Active AMOXICILLIN 500 MG ORAL CAPSULE 2 po BID x 10 days AMOXICILLIN 83207590715 No Longer Active Alina Castaneda MD PhD Active HYDROCODONE-ACETAMINOPHEN 7.5-325 MG ORAL TABLET 1 four times a day as needed for pain HYDROCODONE-ACETAMINOPHEN 49007103151 No Longer Active Alina Castaneda MD PhD Active DOXEPIN HCL 10 MG ORAL CAPSULE Take 1 tablet by mouth daily DOXEPIN HCL 19276891696 No Longer Active Salina Han [facility] Active NAVANE 10 MG CAPS 1/2 tablet twice a day THIOTHIXENE No Longer Active Salina Han [facility] Active CYCLOBENZAPRINE HCL 10 MG ORAL TABLET 1/2 tablet by mouth every 8 hours as needed for muscle spasms CYCLOBENZAPRINE HCL 40761034377 No Longer Active Alina Castaneda MD PhD Active BACTROBAN 2 % EXTERNAL CREAM apply to ear and nose twice daily MUPIROCIN CALCIUM 75284989242 No Longer Active Alina Castaneda MD PhD Active HYDROCODONE-ACETAMINOPHEN 5-325 MG ORAL TABLET take one tablet by mouth every four hours as needed for pain HYDROCODONE-ACETAMINOPHEN 83935711944 No Longer Active Alina Castaneda MD PhD Active ZYPREXA 5 MG ORAL TABLET take one tablet by mouth every evening OLANZAPINE 53322497784 No Longer Active Alina Castaneda MD PhD Active ALBUTEROL SULFATE (2.5 MG/3ML) 0.083% INHALATION NEBULIZATION SOLUTION one vial per nebulizer TID and PRN cough/soa ALBUTEROL SULFATE 34358375808 No Longer Active Alina Castaneda MD PhD Active GUAIFENESIN ER 600 MG ORAL TABLET EXTENDED RELEASE 12 HOUR 1 tablet by mouth twice daily if needed for cough GUAIFENESIN 47484683918 No Longer Active Marvel MENDOZAP Active AZITHROMYCIN 500 MG INTRAVENOUS SOLUTION RECONSTITUTED 1 po q day AZITHROMYCIN 98900202544 No Longer Active Alina Castaneda MD PhD Active PROMETHAZINE-CODEINE 6.25-10 MG/5ML ORAL SYRUP 1 tsp po q 6 hours prn cough PROMETHAZINE-CODEINE 45550189974 No Longer Active Alina Castaneda MD PhD Active CEFDINIR 300 MG ORAL CAPSULE by mouth twice a day CEFDINIR 24917346540 No Longer Active Alina Castaneda MD PhD Active METFORMIN HCL ER 500 MG ORAL TABLET EXTENDED RELEASE 24 HOUR Take 3 tablets by mouth everyday METFORMIN HCL 27670615786 No Longer Active Alina Castaneda MD PhD Active LEVEMIR 100 UNIT/ML SUBCUTANEOUS SOLUTION 90 units SQ qHS INSULIN DETEMIR 34496831541 No Longer Active Marvel MARROQUIN Active TOPROL XL 100 MG ORAL TABLET EXTENDED RELEASE 24 HOUR 1 @ HS METOPROLOL SUCCINATE 38564264691 No Longer Active Marvel MARROQUIN Active ALLOPURINOL 300 MG ORAL TABLET Take one by mouth daily ALLOPURINOL 98392655409 Active Mima Erazo SUPERVISOR PAYROLL Active ZYPREXA 10 MG ORAL TABLET Take one by mouth daily OLANZAPINE 62310715849 No Longer Active Alina Castaneda MD PhD Active NOVOLOG 100 UNIT/ML SUBCUTANEOUS SOLUTION 40 units with every meal INSULIN ASPART 50941588436 No Longer Active Alina Castaneda MD PhD Active VERAPAMIL HCL ER 120 MG ORAL TABLET EXTENDED RELEASE 1 qPM 09/08 VERAPAMIL HCL 61011177655 No Longer Active Salina ROJAS Active ZYPREXA 15 MG ORAL TABLET Take 1 tablet by mouth daily OLANZAPINE 93251653065 No Longer Active Marvel MARROQUIN Active ALBUTEROL SULFATE (2.5 MG/3ML) 0.083% INHALATION NEBULIZATION SOLUTION 1 neb tid and prn cough ALBUTEROL SULFATE 66562981304 No Longer Active Alina Castaneda MD PhD Active LANTUS 100 UNIT/ML SUBCUTANEOUS SOLUTION 60 units sq q hs INSULIN GLARGINE 78482055496 No Longer Active CRYSTAL Suarez Active ALBUTEROL SULFATE (2.5 MG/3ML) 0.083% INHALATION NEBULIZATION SOLUTION 1 neb tid and prn cough ALBUTEROL SULFATE (2.5 MG/3ML) 0.083% INHALATION NEBULIZATION SOLUTION 190081 ALBUTEROL SULFATE Inactive ZYPREXA 15 MG ORAL TABLET Take 1 tablet by mouth daily ZYPREXA 15 MG ORAL TABLET 478634 OLANZAPINE Inactive VERAPAMIL HCL ER 120 MG ORAL TABLET EXTENDED RELEASE 1 qPM 09/08 VERAPAMIL HCL ER 120 MG ORAL TABLET EXTENDED RELEASE VERAPAMIL HCL Inactive ZYPREXA 10 MG ORAL TABLET Take one by mouth daily ZYPREXA 10 MG ORAL TABLET 333467 OLANZAPINE Inactive TOPROL XL 100 MG ORAL TABLET EXTENDED RELEASE 24 HOUR 1 @ HS TOPROL XL 100 MG ORAL TABLET EXTENDED RELEASE 24 HOUR METOPROLOL SUCCINATE Inactive LEVEMIR 100 UNIT/ML SUBCUTANEOUS SOLUTION 90 units SQ qHS LEVEMIR 100 UNIT/ML SUBCUTANEOUS SOLUTION INSULIN DETEMIR Inactive PROMETHAZINE-CODEINE 6.25-10 MG/5ML ORAL SYRUP 1 tsp po q 6 hours prn cough PROMETHAZINE-CODEINE 6.25-10 MG/5ML ORAL SYRUP 165021 PROMETHAZINE-CODEINE Inactive GUAIFENESIN ER 600 MG ORAL TABLET EXTENDED RELEASE 12 HOUR 1 tablet by mouth twice daily if needed for cough GUAIFENESIN ER 600 MG ORAL TABLET EXTENDED RELEASE 12 HOUR GUAIFENESIN Inactive ALBUTEROL SULFATE (2.5 MG/3ML) 0.083% INHALATION NEBULIZATION SOLUTION one vial per nebulizer TID and PRN cough/soa ALBUTEROL SULFATE (2.5 MG/3ML) 0.083% INHALATION NEBULIZATION SOLUTION 843126 ALBUTEROL SULFATE Inactive ZYPREXA 5 MG ORAL TABLET take one tablet by mouth every evening ZYPREXA 5 MG ORAL TABLET 709465 OLANZAPINE Inactive HYDROCODONE-ACETAMINOPHEN 5-325 MG ORAL TABLET take one tablet by mouth every four hours as needed for pain HYDROCODONE-ACETAMINOPHEN 5-325 MG ORAL TABLET 216635 HYDROCODONE-ACETAMINOPHEN Inactive BACTROBAN 2 % EXTERNAL CREAM apply to ear and nose twice daily BACTROBAN 2 % EXTERNAL CREAM 258049 MUPIROCIN CALCIUM Inactive CYCLOBENZAPRINE HCL 10 MG ORAL TABLET 1/2 tablet by mouth every 8 hours as needed for muscle spasms CYCLOBENZAPRINE HCL 10 MG ORAL TABLET 181939 CYCLOBENZAPRINE HCL Inactive NAVANE 10 MG CAPS 1/2 tablet twice a day NAVANE 10 MG CAPS THIOTHIXENE Inactive DOXEPIN HCL 10 MG ORAL CAPSULE Take 1 tablet by mouth daily DOXEPIN HCL 10 MG ORAL CAPSULE 3878663 DOXEPIN HCL Inactive HYDROCODONE-ACETAMINOPHEN 7.5-325 MG ORAL TABLET 1 four times a day as needed for pain HYDROCODONE-ACETAMINOPHEN 7.5-325 MG ORAL TABLET 990488 HYDROCODONE-ACETAMINOPHEN Inactive NIACIN ER 500 MG ORAL [...] hr. PRN ACETAMINOPHEN 500 MG ORAL TABLET 147827 ACETAMINOPHEN Inactive SAPHRIS 5 MG SUBLINGUAL TABLET SUBLINGUAL by mouth twice a day SAPHRIS 5 MG SUBLINGUAL TABLET SUBLINGUAL ASENAPINE MALEATE Inactive NIACIN ER 500 MG ORAL TABLET EXTENDED RELEASE 4 qHS (for triglycerides) 01/13 NIACIN ER 500 MG ORAL TABLET EXTENDED RELEASE NIACIN Inactive IBUPROFEN 200 MG ORAL TABLET 1 Q 6 hr. PRN IBUPROFEN 200 MG ORAL TABLET 331542 IBUPROFEN Inactive FLUTICASONE PROPIONATE 50 MCG/ACT NASAL SUSPENSION 2 sprays each nostril qDay x 30 days FLUTICASONE PROPIONATE 50 MCG/ACT NASAL SUSPENSION 1844723 FLUTICASONE PROPIONATE Inactive EQL TRUETEST TEST IN [...] at HS ZYPREXA 7.5 MG ORAL TABLET 131360 OLANZAPINE Inactive THIOTHIXENE 5 MG ORAL CAPSULE by mouth twice a day THIOTHIXENE 5 MG ORAL CAPSULE 789697 THIOTHIXENE Inactive UROXATRAL 10 MG ORAL TABLET EXTENDED RELEASE 24 HOUR Take 1 tablet by mouth daily UROXATRAL 10 MG ORAL TABLET EXTENDED RELEASE 24 HOUR ALFUZOSIN HCL Inactive ACYCLOVIR 400 MG ORAL TABLET 1 pill three times daily x 5 days, for cold sore outbreak ACYCLOVIR 400 MG ORAL TABLET 233543 ACYCLOVIR Inactive TRUETEST TEST IN VITRO STRIP check sugars 4x/day TRUETEST TEST IN VITRO STRIP GLUCOSE BLOOD Inactive HUMALOG 100 UNIT/ML SUBCUTANEOUS SOLUTION Take 20 units with breakfast, 10u with lunch and suppetr. HUMALOG 100 UNIT/ML SUBCUTANEOUS SOLUTION INSULIN LISPRO (HUMAN) Inactive CYCLOBENZAPRINE HCL 10 MG ORAL TABLET 1 tablet by mouth three times daily, scheduled CYCLOBENZAPRINE HCL 10 MG ORAL TABLET 504720 CYCLOBENZAPRINE HCL Inactive ACCU-CHEK ROSA IN VITRO STRIP use strips with device to check blood sugars 3 times daily ACCU-CHEK ROSA IN VITRO STRIP GLUCOSE BLOOD Inactive ACCU-CHEK ROSA DEVICE Use device to check blood sugars ACCU-CHEK ROSA DEVICE BLOOD GLUCOSE MONITORING SUPPL Inactive FLUVOXAMINE MALEATE 100 MG ORAL TABLET Take 1/2 tab at noon 03/04 FLUVOXAMINE MALEATE 100 MG ORAL TABLET 806508 FLUVOXAMINE MALEATE Inactive FLUVOXAMINE MALEATE 100 MG ORAL TABLET Take one (1) tablet by mouth am, 1/2 at noon FLUVOXAMINE MALEATE 100 MG ORAL TABLET 337828 FLUVOXAMINE MALEATE Inactive BACTROBAN 2 % EXTERNAL CREAM Apply to affected area BID for up to 10 days BACTROBAN 2 % EXTERNAL CREAM 876528 MUPIROCIN CALCIUM Inactive NOVOFINE 32G X 6 MM use one four times per day NOVOFINE 32G X 6 MM INSULIN PEN NEEDLE Inactive TRAZODONE HCL 100 MG ORAL TABLET 1 tab by mouth for sleep TRAZODONE HCL 100 MG ORAL TABLET 505981 TRAZODONE HCL Inactive LOVAZA 1 GM ORAL CAPSULE 4 daily (for triglycerides) LOVAZA 1 GM ORAL CAPSULE 039099 [id number] ETHYL ESTERS Inactive METFORMIN HCL ER 500 [...] bladder TOLTERODINE TARTRATE 2 MG ORAL TABLET 600153 TOLTERODINE TARTRATE Inactive COLACE 100 MG ORAL CAPSULE 1 pill by mouth twice daily, for constipation 2014 COLACE 100 MG ORAL CAPSULE 5348981 DOCUSATE SODIUM Inactive LOMOTIL 2.5-0.025 MG ORAL TABLET take 1-2 tabs PO after each stool, no more than 8 in 24 hours LOMOTIL 2.5-0.025 MG ORAL TABLET 6325129 DIPHENOXYLATE-ATROPINE Inactive ZOFRAN 4 MG ORAL TABLET 1 po q4hr PRN Nausea ZOFRAN 4 MG ORAL TABLET 986070 ONDANSETRON HCL Inactive HYDROCODONE-ACETAMINOPHEN 5-325 MG ORAL TABLET 2 tabs by mouth three times daily for pain HYDROCODONE-ACETAMINOPHEN 5-325 MG ORAL TABLET 752848 HYDROCODONE-ACETAMINOPHEN Inactive ZOLPIDEM TARTRATE 10 MG ORAL TABLET take at bedtime ZOLPIDEM TARTRATE 10 MG ORAL TABLET 379022 ZOLPIDEM TARTRATE Inactive LISINOPRIL 20 MG ORAL TABLET 1 BID LISINOPRIL 20 MG ORAL TABLET 570996 LISINOPRIL Inactive TRAVATAN Z 0.004 % OPHTHALMIC SOLUTION 1 gtt each eye daily TRAVATAN Z 0.004 % OPHTHALMIC SOLUTION TRAVOPROST Inactive LATUDA 60 MG ORAL TABLET Take one by mouth daily LATUDA 60 MG ORAL TABLET LURASIDONE HCL Inactive FLUVOXAMINE MALEATE 50 MG ORAL TABLET 1 tab by mouth daily 04/01 FLUVOXAMINE MALEATE 50 MG ORAL TABLET 093815 FLUVOXAMINE MALEATE Inactive LEVEMIR FLEXTOUCH 100 UNIT/ML [...] 30G 3 a day TRUEPLUS LANCETS 30G [id number] LANCETS Inactive AMITIZA 24 MCG ORAL CAPSULE [...] noon FLUVOXAMINE MALEATE 100 MG ORAL TABLET 734074 FLUVOXAMINE MALEATE Inactive FLONASE ALLERGY RELIEF 50 MCG/ACT NASAL SUSPENSION One spray each nostril BID x 1 week then daily FLONASE ALLERGY RELIEF 50 MCG/ACT NASAL SUSPENSION 3567629 FLUTICASONE PROPIONATE Inactive IMODIUM A-D 2 MG ORAL TABLET 1 tab QID as needed IMODIUM A-D 2 MG ORAL TABLET 850757 LOPERAMIDE HCL Inactive MYLANTA GAS RELIEF MAXIMUM STR 125 MG ORAL CAPSULE 30cc every 4 hours prn MYLANTA GAS RELIEF MAXIMUM STR 125 MG ORAL CAPSULE SIMETHICONE Inactive TRUEPLUS LANCETS 30G 3x a day TRUEPLUS LANCETS 30G [id number] LANCETS Inactive TRUE METRIX BLOOD GLUCOSE TEST [...] headaches TRAZODONE HCL 100 MG ORAL TABLET 168213 TRAZODONE HCL Inactive TYLENOL 8 HOUR 650 [...] evening TAMSULOSIN HCL 0.4 MG ORAL CAPSULE 334319 TAMSULOSIN HCL Inactive [facility] MEL[facility] 3 MG ORAL TABLET give 1 tab by mouth at HS [facility] MELATONIN 3 MG ORAL TABLET 19901024 MELATONIN Inactive SEROQUEL 100 MG ORAL TABLET 1 tab daily SEROQUEL 100 MG ORAL TABLET 373708 QUETIAPINE FUMARATE Inactive AMARYL 2 MG ORAL TABLET give 2.5 tabs PO daily AMARYL 2 MG ORAL TABLET 443272 GLIMEPIRIDE Inactive SEROQUEL 25 MG ORAL TABLET Take two tabs by mouth in the morning, take 4 tablets at night SEROQUEL 25 MG ORAL TABLET 297830 QUETIAPINE FUMARATE Inactive QUETIAPINE FUMARATE 25 MG ORAL TABLET 2 tabs BID QUETIAPINE FUMARATE 25 MG ORAL TABLET 156893 QUETIAPINE FUMARATE Inactive QUETIAPINE FUMARATE 100 MG ORAL TABLET 1 tab PO at HS QUETIAPINE FUMARATE 100 MG ORAL TABLET 718942 QUETIAPINE FUMARATE Inactive LATUDA 40 MG ORAL TABLET 1.5 tab by mouth in the afternoon 05/23 LATUDA 40 MG ORAL TABLET LURASIDONE HCL Inactive TOPAMAX 25 MG ORAL TABLET 1 tab BID PRN TOPAMAX 25 MG ORAL TABLET 883279 TOPIRAMATE Inactive EFFEXOR XR 150 MG ORAL [...] mouth q12h, for constipation MIRALAX ORAL POWDER 716761 POLYETHYLENE GLYCOL 3350 Inactive CEFDINIR 300 MG ORAL CAPSULE by mouth twice a day CEFDINIR 300 MG ORAL CAPSULE 321336 CEFDINIR Inactive AZITHROMYCIN 500 MG INTRAVENOUS SOLUTION RECONSTITUTED 1 po q day AZITHROMYCIN 500 MG INTRAVENOUS SOLUTION RECONSTITUTED [id number] AZITHROMYCIN Inactive AMOXICILLIN 500 MG ORAL CAPSULE 2 po BID x 10 days AMOXICILLIN 500 MG ORAL CAPSULE 500512 AMOXICILLIN Inactive PENICILLIN V POTASSIUM 500 MG ORAL TABLET 1 pill by mouth three times daily PENICILLIN V POTASSIUM 500 MG ORAL TABLET 933176 PENICILLIN V POTASSIUM Inactive KEFLEX 500 MG ORAL CAPSULE 1 po BID x 7 days KEFLEX 500 MG ORAL CAPSULE 829236 CEPHALEXIN Inactive Immunizations Vaccine Administration Date Value [...] Fluvirin, Fluarix, Agriflu(>=18 yo)) Fluzone (>3 yrs.) [YON023] Influenza, seasonal, injectable pneumococcal immunization administered Pneumovax [...] ... - Chemistry sodium, serum 135 mmol/L [phone]/08/22 carbon dioxide, venous blood 28.4 mmol/L 21.0-32.0 [...] mg/g {creat} 0-29 cholesterol, serum 263 mg/dL [phone]/08/22 triglyceride, serum, fasting 1312 mg/dL 30-200 HDL [...] 80 mg/L 0-19 Office Visit: [facility] - Lab PSA (prostate specific antigent), recommendation and action PSA ordered Encounters Code Encounter Date Provider Facility CPT-53230 Level 3 Est. Patient 16:25:15 CHANGE CONTROL COORDINATOR [facility] CPT-04243 [id number] Vst-Est Level IV 15:10:01 CHANGE CONTROL COORDINATOR Mason Loredo MD [facility] CPT-45747 [id number] Vst-Est Level III 11:00:25 CDT Shavonne Feliciano PA-C [facility] CPT-91843 Level 3 Est. Patient 09:12:14 CHANGE CONTROL COORDINATOR Mima Erazo APRN [facility] [place] CPT-52253 Level 3 Est. Patient 16:52:51 CDT Vanessa Hickey MD [facility] CPT-61195 Level 3 Est. Patient 17:40:16 CDT Mima Vadimjerrell [facility] CPT-61548 Level 3 Est. Patient 14:34:52 CDT Vanessa Hickey MD [facility]-86566 Level 3 Est. Patient 16:27:[address] [facility] CPT-54950 Level 3 Est. Patient 14:39:00 CHANGE CONTROL COORDINATOR Vanessa Hickey MD [facility]-52136 Level 2 Est. Patient 18:43:34 CDT Mima Erazo [facility] CPT-41989 Level 3 Est. Patient 16:22:[address] [facility] CPT-24067 Level 4 Est. Patient 17:55:14 CDT Mima Erazo [facility] CPT-01451 Level 2 Est. Patient 17:13:21 CDT Alina Castaneda MD [facility]-31302 Level 3 Est. Patient 14:46:15 CDT Vanessa Hickey MD [facility]-50521 Level 3 Est. Patient 09:34:56 CDT Alina Castaneda MD [facility]-43641 Level 3 Est. Patient 21:40:19 CDT Mima Vadimjerrell [facility] CPT-14675 Level 3 Est. Patient 09:26:40 CDT Marvel Charles [facility]-97349 Level 3 Est. Patient 12:36:43 CDT Vanessa Hickey MD [facility]-79948 Level 3 Est. Patient 12:57:49 CDT Vanessa Hickey MD [facility]-62126 Level 3 Est. Patient 00:28:25 CDT Alina Castaneda MD [facility]71075 Level 2 Est. Patient 12:52:14 CDT Alina Castaneda MD [facility]-58421 Level 3 Est. Patient 11:51:18 CHANGE CONTROL COORDINATOR Alina Castaneda MD [facility]-75542 Level 3 Est. Patient 10:09:22 CHANGE CONTROL COORDINATOR Alina Castaneda MD [facility]21333 Level 3 Est. Patient 14:36:26 CHANGE CONTROL COORDINATOR Marvel Charles [facility]-71089 Level 3 Est. Patient 13:34:47 CHANGE CONTROL COORDINATOR Alina Castaneda MD [facility]29400 Level 3 Est. Patient 19:52:08 CHANGE CONTROL COORDINATOR Alina Castaneda MD [facility]64850 Level 3 Est. Patient 10:01:[address] [facility]-13916 Level 3 Est. Patient 21:54:06 CDT Vanessa Hickey MD [facility]-74800 Level 3 Est. Patient 08:54:46 CDT Alina Castaneda MD [facility]-87998 Level 3 Est. Patient 09:32:[address] [facility]-03418 Level 3 Est. Patient 12:02:49 CDT Alina Castaneda MD [facility]-50427 Level 3 Est. Patient 19:17:33 CDT Alina Castaneda MD [facility]-14642 Level 3 Est. Patient 13:19:10 CDT Marvel Charles [facility]52207 Level 3 Est. Patient 08:20:05 CDT Alina Castaneda MD [facility]63010 Level 3 Est. Patient 15:17:18 CDT Alina Castaneda MD [facility]-90662 Level 3 Est. Patient 14:25:36 CHANGE CONTROL COORDINATOR Marvel Charles [facility]-99269 Level 3 Est. Patient 10:09:15 CHANGE CONTROL COORDINATOR Marvel Charles [facility]-65470 Level 3 Est. Patient 21:28:43 CDT Alina Castaneda MD [facility]-72127 Level 3 Est. Patient 15:20:11 CDT [facility]51574 Level 4 Est. Patient 19:08:12 CDT Alina Castaneda MD [facility]-21755 Level 3 Est. Patient 15:06:39 [facility]T [facility]-18947 Level 4 Est. Patient 17:48:15 CDT Alina Castaneda MD [facility]-04430 Level 3 Est. Patient 14:53:49 CDT Alina Castaneda MD [facility]-35253 Level 3 Est. Patient 09:35:16 CDT Alina Castaneda MD [facility]-78945 Level 3 Est. Patient 12:23:22 CDT Alina Castaneda MD [facility]-98889 Level 3 Est. Patient 16:19:15 CDT Alina Castaneda MD [facility]-62515 Level 3 Est. Patient 21:39:56 CHANGE CONTROL COORDINATOR Alina Castaneda MD [facility]-56682 Level 4 Est. Patient 14:12:56 CHANGE CONTROL COORDINATOR Alina Castaneda MD [facility]-76653 Level 2 Est. Patient 15:34:57 CHANGE CONTROL COORDINATOR Alina Castaneda MD [facility]-56973 Level 3 Est. Patient 12:17:04 CHANGE CONTROL COORDINATOR Alina Castaneda MD [facility]11239 Level 3 Est. Patient 09:18:18 CHANGE CONTROL COORDINATOR Marvel Charles [facility]-51858 Level 2 Est. Patient 21:50:24 CDT Alina Castaneda MD [facility]36435 Level 3 Est. Patient 09:17:28 CDT Marvel Charles [facility]-71361 Level 4 Est. Patient 18:54:02 CDT Alina Castaneda MD [facility]56962 Level 3 Est. Patient 10:47:10 CDT Alina Castaneda MD [facility]89989 Level 3 Est. Patient 09:22:20 CDT Marvel Charles [facility]-93367 Level 3 Est. Patient 16:39:43 CDT [facility]-17994 Level 3 Est. Patient 16:05:16 CDT Alina Castaneda MD [facility]-16972 Level 3 Est. Patient 00:29:15 CDT Alina Castaneda MD [facility]80682 Level 3 Est. Patient 10:49:22 CHANGE CONTROL COORDINATOR Marvel Charles [facility]59374 Level 3 Est. Patient 21:30:19 CHANGE CONTROL COORDINATOR Alina Castaneda MD [facility]47751 Level 4 Est. Patient 17:04:11 CHANGE CONTROL COORDINATOR Marvel Charles [facility]90795 Level 3 Est. Patient 15:34:11 CHANGE CONTROL COORDINATOR Marvel MENDOZAP [facility] CPT-33955 Level 2 Est. Patient 12:51:58 CHANGE CONTROL COORDINATOR Alina Castaneda MD PhD [facility] CPT-90360 Level 3 Est. Patient 13:20:01 CHANGE CONTROL COORDINATOR Alina Castaneda MD PhD [facility] CPT-54141 Level 3 Est. Patient 09:23:35 CDT Alina Castaneda MD PhD [facility] Procedures Code Procedure Name Date Entry Date Standard Description CPT-73649 Level 2 Retirement 14:06:10 CHANGE CONTROL COORDINATOR CPT-G0439 [facility] Annual Wellness Exam 15:49:52 CHANGE CONTROL COORDINATOR CPT-03753 Level 3 Retirement 13:20:19 CDT CPT-TCMM Transitional Care Mgmt-Moderate 12:32:19 CDT CPT-01293 Level 2 Retirement 09:01:11 CDT CPT-48383 HGBA1C - LAB USE ONLY 09:30:27 CHANGE CONTROL COORDINATOR CPT-22844 BMP - LAB USE ONLY 09:30:27 CHANGE CONTROL COORDINATOR CPT-10802 Venipuncture Draw Fee 09:30:26 CHANGE CONTROL COORDINATOR CPT-TCMM Transitional Care Mgmt-Moderate 10:25:31 CDT CPT-35023 Bladder Scan 14:34:53 CDT CPT-09320 Bladder Scan 14:39:01 CHANGE CONTROL COORDINATOR CPT-TCMM Transitional Care Mgmt-Moderate 10:30:19 CHANGE CONTROL COORDINATOR CPT-79686 Bladder Scan 12:36:44 CDT CPT-42278 Bladder Scan 21:54:06 CDT CPT-G0008 Administration of Influenza Virus Vaccine 13:05:26 CDT CPT-75320 Fluzone Quadrivalent Intramuscular Suspension 0.5 ML 13: 05:26 CDT CPT-41116 Administration single or combination vaccine inc oral 11 :49:51 CDT CPT-59878 Pneumovax 11:49:51 CDT CPT-06020 Ribs unilateral 2V 12:37:22 CHANGE CONTROL COORDINATOR CPT-12088 Chest 2V Frontal and Lat 17:15:26 CDT CPT-74549 Abx/Therapy Injection 18:54:02 CDT CPT-J0696 Rocephin 1000 mg (Ceftriaxone) 16:00:32 CDT CPT-06251 Chest 2V Frontal and Lat 15:26:45 CDT CPT-54664 Chest 2V Frontal and Lat 10:23:27 CDT CPT-18060 Venipuncture Draw Fee 10:11:00 CDT CPT-18261 Administration single or combination vaccine inc oral 11 :56:38 CDT CPT-72952 Influenza split virus > age 3 11:56:38 CDT CPT-08498 Venipuncture Draw Fee 08:49:54 CHANGE CONTROL COORDINATOR CPT-83644 EKG Trac and Interp 17:54:19 CHANGE CONTROL COORDINATOR
--- OUTSIDE RECORDS SUMMARY | 2018-07-02 14:42 | XMS REPORT | Clinical Summary ---
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 Resolved Shavonne Feliciaon PA-C Recurrent isolated sleep paralysis SPECIAL SCREENING 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 Erazo DUPLICATING MACHINE OPERATOR Benign paroxysmal positional vertigo Vertigo, benign paroxysmal position 386.11 Inactive Mima Erazo DUPLICATING MACHINE OPERATOR Benign paroxysmal positional vertigo High-risk [...] by mouth once daily POLYETHYLENE GLYCOL 3350 [id number] Active Cherelle Souza RN Active CLONAZEPAM 1 MG ORAL TABLET 1 tablet by mouth three times daily CLONAZEPAM 54656770326 Active Cherelle Souza RN Active MIRALAX ORAL POWDER 17g by mouth q12h, for constipation POLYETHYLENE GLYCOL 3350 67362317084 No Longer Active Cherelle Souza RN Active LACTOBACILLUS ORAL TABLET 1 tablet by mouth at bedtime for probiotic LACTOBACILLUS 41034091086 Active Cherelle Souza RN Active D 2000 2000 UNIT ORAL TABLET 1 tablet by mouth twice daily CHOLECALCIFEROL 45436895145 Active Cherelle Souza RN Active DIVALPROEX SODIUM ER 500 MG ORAL TABLET EXTENDED RELEASE 24 HOUR 3 tablets by mouth at bedtime for Mood DIVALPROEX SODIUM 40159897332 Active Cherelle Souza RN Active GLIMEPIRIDE 4 MG ORAL TABLET 1 tablet by mouth once daily GLIMEPIRIDE 28091157556 Active Cherelle Souza RN Active VENLAFAXINE HCL ER 150 MG ORAL CAPSULE EXTENDED RELEASE 24 HOUR 1 tablet by mouth once daily VENLAFAXINE HCL 90086670945 Active Cherelle Souza RN Active RISPERDAL 2 MG ORAL TABLET Take 1 tablet by mouth three times a day RISPERIDONE 58202721763 Active Mya Ledezma MA Active [facility] MILK OF MAGNESIA 400 MG/5ML ORAL SUSPENSION 30ml by mouth bid prn MAGNESIUM HYDROXIDE 90052884491 No Longer Active Mya Ledezma MA Active [facility] MELATONIN 3 MG ORAL TABLET 1 tab nightly MELATONIN 65968646957 No Longer Active Mya Ledezma MA Active AMBIEN 10 MG ORAL TABLET 1 at night as needed for sleep ZOLPIDEM TARTRATE 16239987778 Active Mason Loredo MD Active VERAPAMIL HCL ER 180 MG ORAL TABLET EXTENDED RELEASE 1 pill by mouth twice daily, for migraine prevention VERAPAMIL HCL 09785545857 No Longer Active Mason Loredo MD Active EFFEXOR XR 150 MG ORAL CAPSULE EXTENDED RELEASE 24 HOUR 1 tab daily VENLAFAXINE HCL 50748158395 No Longer Active Mason Loredo MD Active TOPAMAX 25 MG ORAL TABLET 1 tab BID PRN TOPIRAMATE 86187110531 No Longer Active Mason Loredo MD Active LATUDA 40 MG ORAL TABLET 1.5 tab by mouth in the afternoon 05/23 LURASIDONE HCL 37526806948 No Longer Active Mason Loredo MD Active QUETIAPINE FUMARATE 100 MG ORAL TABLET 1 tab PO at HS QUETIAPINE FUMARATE 33041251829 No Longer Active Mason Loredo MD Active QUETIAPINE FUMARATE 25 MG ORAL TABLET 2 tabs BID QUETIAPINE FUMARATE 84776524577 No Longer Active Mason Loredo MD Active ATORVASTATIN CALCIUM 10 MG ORAL TABLET Take 1 tablet by mouth daily. Recheck labs in 3 months ATORVASTATIN CALCIUM 98613433063 Active Mya Ledezma MA Active VERAPAMIL HCL ER 180 MG ORAL TABLET EXTENDED RELEASE 1 tab BID VERAPAMIL HCL 68691389004 Active Shavonne Feliciano PA-C Active SEROQUEL 25 MG ORAL TABLET Take two tabs by mouth in the morning, take 4 tablets at night QUETIAPINE FUMARATE 08125746383 No Longer Active Shavonne Feliciano PA-C Active AMARYL 2 MG ORAL TABLET give 2.5 tabs PO daily GLIMEPIRIDE 07448888297 No Longer Active Shavonne Feliciano PA-C Active FENOFIBRATE 145 MG ORAL TABLET 1 tab PO in the morning FENOFIBRATE 58196365261 Active Shavonne Feliciano PA-C Active SEROQUEL 100 MG ORAL TABLET 1 tab daily QUETIAPINE FUMARATE 55303708790 No Longer Active Shavonne Feliciano PA-C Active [facility] MELATONIN 3 MG ORAL TABLET give 1 tab by mouth at HS MELATONIN 93323242550 No Longer Active Gabrielle Marquez MA Active NOVOLOG FLEXPEN 100 UNIT/ML SUBCUTANEOUS SOLUTION PEN-INJECTOR sliding scale INSULIN ASPART 15318315842 Active Gabrielle Marquez MA Active METFORMIN HCL 1000 MG ORAL TABLET 1 tab by mouth BID METFORMIN HCL 59602599185 Active Gabrielleadrienne Marquez MA Active TAMSULOSIN HCL 0.4 MG ORAL CAPSULE give 2 capsules PO each evening TAMSULOSIN HCL 98888981724 No Longer Active Gabrielleadrienne Marquez MA Active VITAMIN D 2000 UNIT ORAL CAPSULE Take one by mouth daily CHOLECALCIFEROL 64051334193 No Longer Active Gabrielleadrienne Marquez MA Active LEVEMIR 100 UNIT/ML SUBCUTANEOUS SOLUTION 10 u at bedtime INSULIN DETEMIR 55646050978 Active Gabrielle Littleananda NOEL Active TAMSULOSIN HCL 0.4 MG ORAL CAPSULE 2 every night for urine flow TAMSULOSIN HCL 51601004300 Active Gabrielle Sidneyananda NOEL Active ALIGN 4 MG ORAL CAPSULE 1 tab at hs PROBIOTIC PRODUCT 24844022220 No Longer Active Gabrielle Marquez MA Active OCEAN NASAL SPRAY SOLUTION 2 sprays in both nostrils every 8 hours as needed for dry mucous membranes SALINE SOLN 26837148526 Active Mason Loredo MD Active BETHANECHOL CHLORIDE 25 MG ORAL TABLET Take 1 tablet mouth four times a day BETHANECHOL CHLORIDE 99243090828 Active Mason Loredo MD Active [facility] LUBRICANT EYE DROPS 0.4-0.3 % OPHTHALMIC SOLUTION POLYETHYL GLYCOL-PROPYL GLYCOL 47960361324 No Longer Active Mason Loredo MD Active TYLENOL 8 HOUR 650 MG ORAL TABLET EXTENDED RELEASE 1 tab QID prn ACETAMINOPHEN 67200030463 No Longer Active Mason Loredo MD Active TIMOPTIC OCUDOSE 0.5 % OPHTHALMIC SOLUTION instill one drop into both eyes q12H TIMOLOL MALEATE 57394731530 Active Mason Loredo MD Active TRAZODONE HCL 100 MG ORAL TABLET 1 every night to prevent headaches TRAZODONE HCL 40979878374 No Longer Active Mason Loredo MD Active TRAVATAN Z 0.004 % OPHTHALMIC SOLUTION 1 drop each eye daily 2017 TRAVOPROST 59529566962 No Longer Active Mason Loredo MD Active LATUDA 60 MG ORAL TABLET 1 tab daily LURASIDONE HCL 61523374039 No Longer Active Mason Loredo MD Active MORPHINE SULFATE ER 30 MG ORAL TABLET EXTENDED RELEASE Take one capsule BID MORPHINE SULFATE 04944099014 No Longer Active Mason Loredo MD Active TRUE METRIX BLOOD GLUCOSE TEST IN VITRO STRIP Check blood sugars 3x/day. 2015 GLUCOSE BLOOD 19372611623 No Longer Active Mason Loredo MD Active TRUEPLUS LANCETS 30G 3x a day LANCETS 87341896036 No Longer Active Mason Loredo MD Active MYLANTA GAS RELIEF MAXIMUM STR 125 MG ORAL CAPSULE 30cc every 4 hours prn SIMETHICONE 55883387576 No Longer Active Mason Loredo MD Active IMODIUM A-D 2 MG ORAL TABLET 1 tab QID as needed LOPERAMIDE HCL 40549832983 No Longer Active Mason Loredo MD Active FLONASE ALLERGY RELIEF 50 MCG/ACT NASAL SUSPENSION One spray each nostril BID x 1 week then daily FLUTICASONE PROPIONATE 21402770161 No Longer Active Mason Loredo MD Active FLUVOXAMINE MALEATE 100 MG ORAL TABLET take one tab every AM et HS, and take 1 /2 tab at noon FLUVOXAMINE MALEATE 44384016969 No Longer Active Mason Loredo MD Active BD PEN NEEDLE MINI U/F 31G X 5 MM 4 a day INSULIN PEN NEEDLE 45862607294 No Longer Active Mason Loredo MD Active AMITIZA 24 MCG ORAL CAPSULE Take one capsule BID for constipation LUBIPROSTONE 31439167127 No Longer Active Mason Loredo MD Active TRUEPLUS LANCETS 30G 3 a day LANCETS 95146674045 No Longer Active Mason Loredo MD Active CORICIDIN HBP CONGESTION/COUGH 10-200 MG ORAL CAPSULE Take as directed on box as needed for cold/flu symptoms DEXTROMETHORPHAN- GUAIFENESIN 87765609839 No Longer Active Mason Loredo MD Active OMEGA-3 300 MG ORAL CAPSULE 4 caps by mouth daily OMEGA-3 FATTY ACIDS 58244775240 No Longer Active Mason Loredo MD Active HUMALOG KWIKPEN 100 UNIT/ML SUBCUTANEOUS SOLUTION PEN-INJECTOR sliding scale if needed INSULIN LISPRO (HUMAN) 24396627556 No Longer Active Mason Loredo MD Active TRUETEST TEST IN VITRO STRIP check blood sugars 3x/day GLUCOSE BLOOD 67457553872 No Longer Active Mason Loredo MD Active ALFUZOSIN HCL ER 10 MG ORAL TABLET EXTENDED RELEASE 24 HOUR 1 tablet daily ALFUZOSIN HCL 92524207424 No Longer Active Mason Loredo MD Active BD INSULIN SYRINGE 28G X 1/2" 1 ML 1 four times per day INSULIN SYRINGE-NEEDLE U-100 68542387955 No Longer Active Mason Loredo MD Active LEVEMIR FLEXTOUCH 100 UNIT/ML SUBCUTANEOUS SOLUTION PEN-INJECTOR 60 units SQ each evening, for diabetes INSULIN DETEMIR 44812882540 No Longer Active Mason Loredo MD Active LACTULOSE 20 GM/30ML ORAL SOLUTION give 30 Ml PO BID PRN LACTULOSE 07474779145 Active Mason Loredo MD Active COLACE 100 MG ORAL CAPSULE 1 tab BID PRN DOCUSATE SODIUM 14488911659 Active Mason Loredo MD Active LATANOPROST 0.005 % OPHTHALMIC SOLUTION instill 1 drop in both eyes at bed time LATANOPROST 56197512345 Active Mason Loredo MD Active IBUPROFEN 400 MG ORAL TABLET 1 tab Q6H PRN IBUPROFEN 37321529189 Active Mason Loredo MD Active FLUVOXAMINE MALEATE 50 MG ORAL TABLET 1 tab by mouth daily 04/01 FLUVOXAMINE MALEATE 12328957533 No Longer Active Mima Erazo APRN Active TRUE METRIX METER w/Device KIT Check blood sugars 3x/day BLOOD GLUCOSE MONITORING SUPPL 80960983047 Active Marvel Mackenzieglari DROP HAMMER MECHANIC Active LATUDA 60 MG ORAL TABLET Take one by mouth daily LURASIDONE HCL 38235751596 No Longer Active Mima Erazo APRN Active TRAVATAN Z 0.004 % OPHTHALMIC SOLUTION 1 gtt each eye daily TRAVOPROST 69391248579 No Longer Active Mason Loredo MD Active LISINOPRIL 20 MG ORAL TABLET 1 BID LISINOPRIL 73750853085 No Longer Active Mason Loredo MD Active ZOLPIDEM TARTRATE 10 MG ORAL TABLET take at bedtime ZOLPIDEM TARTRATE 07584199078 No Longer Active Mason Loredo MD Active HYDROCODONE-ACETAMINOPHEN 5-325 MG ORAL TABLET 2 tabs by mouth three times daily for pain HYDROCODONE-ACETAMINOPHEN 15866478154 No Longer Active Mason Loredo MD Active ZOFRAN 4 MG ORAL TABLET 1 po q4hr PRN Nausea ONDANSETRON HCL 68912170228 No Longer Active Mason Loredo MD Active LOMOTIL 2.5-0.025 MG ORAL TABLET take 1-2 tabs PO after each stool, no more than 8 in 24 hours DIPHENOXYLATE-ATROPINE 83443929772 No Longer Active Mason Loredo MD Active COLACE 100 MG ORAL CAPSULE 1 pill by mouth twice daily, for constipation 2014 DOCUSATE SODIUM 57705851202 No Longer Active Mima Yokum DUPLICATING MACHINE OPERATOR Active TOLTERODINE TARTRATE 2 MG ORAL TABLET 1 pill twice daily, for bladder TOLTERODINE TARTRATE 43597957641 No Longer Active Vanessa Hickey MD Active AMITIZA 24 MCG ORAL CAPSULE Take one capsule BID for constipation. LUBIPROSTONE 47392881596 No Longer Active Vanessa Hickey MD Active METOPROLOL SUCCINATE ER 100 MG ORAL TABLET EXTENDED RELEASE 24 HOUR 1 by mouth daily for blood pressure METOPROLOL SUCCINATE 84127941582 No Longer Active Grace Azam RMA Active METFORMIN HCL ER 500 MG ORAL TABLET EXTENDED RELEASE 24 HOUR Take three tablets by mouth everyday METFORMIN HCL 58715531365 No Longer Active Grace Azam RMA Active LOVAZA 1 GM ORAL CAPSULE 4 daily (for triglycerides) [id number] ETHYL ESTERS 71539886587 No Longer Active Grace Azam RMA Active TRAZODONE HCL 100 MG ORAL TABLET 1 tab by mouth for sleep TRAZODONE HCL 18126618787 No Longer Active Grace Azam RMA Active NOVOFINE 32G X 6 MM use one four times per day INSULIN PEN NEEDLE 16365353430 No Longer Active Grace Azam RMA Active BACTROBAN 2 % EXTERNAL CREAM Apply to affected area BID for up to 10 days MUPIROCIN CALCIUM 22928182669 No Longer Active Grace Azam RMA Active KEFLEX 500 MG ORAL CAPSULE 1 po BID x 7 days CEPHALEXIN 23595139666 No Longer Active Cherelle Avila APRN Active FLUVOXAMINE MALEATE 100 MG ORAL TABLET Take one (1) tablet by mouth am, 1/2 at noon FLUVOXAMINE MALEATE 96538418343 No Longer Active Mima Erazo APRN Active FLUVOXAMINE MALEATE 100 MG ORAL TABLET Take 1/2 tab at noon 03/04 FLUVOXAMINE MALEATE 96949172435 No Longer Active Cherelle Avila APRN Active ACCU-CHEK ROSA DEVICE Use device to check blood sugars BLOOD GLUCOSE MONITORING SUPPL 87287790135 No Longer Active Marvel MARROQUIN Active ACCU-CHEK ROSA IN VITRO STRIP use strips with device to check blood sugars 3 times daily GLUCOSE BLOOD 38867339654 No Longer Active Brooksjohn MARROQUIN Active CYCLOBENZAPRINE HCL 10 MG ORAL TABLET 1 tablet by mouth three times daily, scheduled CYCLOBENZAPRINE HCL 27059373968 No Longer Active Alina Castaneda MD PhD Active HUMALOG 100 UNIT/ML SUBCUTANEOUS SOLUTION Take 20 units with breakfast, 10u with lunch and suppetr. INSULIN LISPRO (HUMAN) 76758220300 No Longer Active Alina Castaneda MD PhD Active TRUETEST TEST IN VITRO STRIP check sugars 4x/day GLUCOSE BLOOD 22332919782 No Longer Active Alina Castaneda MD PhD Active MORPHINE SULFATE 30 MG ORAL TABLET 1 pill by mouth twice daily, for pain 2013 MORPHINE SULFATE 00814689759 No Longer Active Mason Loredo MD Active ACYCLOVIR 400 MG ORAL TABLET 1 pill three times daily x 5 days, for cold sore outbreak ACYCLOVIR 55464721673 No Longer Active Alina Castaneda MD PhD Active PENICILLIN V POTASSIUM 500 MG ORAL TABLET 1 pill by mouth three times daily PENICILLIN V POTASSIUM 74771494731 No Longer Active Alina Castaneda MD PhD Active UROXATRAL 10 MG ORAL TABLET EXTENDED RELEASE 24 HOUR Take 1 tablet by mouth daily ALFUZOSIN HCL 41744299627 No Longer Active Alina Castaneda MD PhD Active THIOTHIXENE 5 MG ORAL CAPSULE by mouth twice a day THIOTHIXENE 64790523714 No Longer Active Alina Castaneda MD PhD Active ZYPREXA 7.5 MG ORAL TABLET 1 at HS OLANZAPINE 02242861613 No Longer Active Alina Castaneda MD PhD Active DETROL LA 4 MG ORAL CAPSULE EXTENDED RELEASE 24 HOUR Take 1 tablet by mouth daily TOLTERODINE TARTRATE 17169829005 No Longer Active Alina Castaneda MD PhD Active TERESE CONTOUR TEST IN VITRO STRIP monitor blood sugars 3x/day GLUCOSE BLOOD 56169618878 No Longer Active Alina Castaneda MD PhD Active EQL TRUETEST TEST IN VITRO STRIP Test blood sugar TID GLUCOSE BLOOD 98287464690 No Longer Active Alina Castaneda MD PhD Active FLUTICASONE PROPIONATE 50 MCG/ACT NASAL SUSPENSION 2 sprays each nostril qDay x 30 days FLUTICASONE PROPIONATE 31498265246 No Longer Active Alina Castaneda MD PhD Active IBUPROFEN 200 MG ORAL TABLET 1 Q 6 hr. PRN IBUPROFEN 01884184358 No Longer Active Alina Castaneda MD PhD Active NIACIN ER 500 MG ORAL TABLET EXTENDED RELEASE 4 qHS (for triglycerides) 01/13 NIACIN 45501227541 No Longer Active Alina Castaneda MD PhD Active SAPHRIS 5 MG SUBLINGUAL TABLET SUBLINGUAL by mouth twice a day ASENAPINE MALEATE 07157631454 No Longer Active Maljohn Ziglari DROP HAMMER MECHANIC Active ACETAMINOPHEN 500 MG ORAL TABLET 2 Q 6 hr. PRN ACETAMINOPHEN 16478277038 No Longer Active Maliheh Ziglari DROP HAMMER MECHANIC Active ORPHENADRINE CITRATE ER 100 MG ORAL TABLET EXTENDED RELEASE 12 HOUR 1 every 12 hr. as needed ORPHENADRINE CITRATE 34206517523 No Longer Active Alina Castaneda MD PhD Active NIACIN ER 500 MG ORAL TABLET EXTENDED RELEASE 2 qHS NIACIN 76051537963 No Longer Active Alina Castaneda MD PhD Active AMOXICILLIN 500 MG ORAL CAPSULE 2 po BID x 10 days AMOXICILLIN 15272642852 No Longer Active Alina Castaneda MD PhD Active HYDROCODONE-ACETAMINOPHEN 7.5-325 MG ORAL TABLET 1 four times a day as needed for pain HYDROCODONE-ACETAMINOPHEN 65409546601 No Longer Active Alina Castaneda MD PhD Active DOXEPIN HCL 10 MG ORAL CAPSULE Take 1 tablet by mouth daily DOXEPIN HCL 95605506295 No Longer Active Salina Han [facility] Active NAVANE 10 MG CAPS 1/2 tablet twice a day THIOTHIXENE No Longer Active Salina Han [facility] Active CYCLOBENZAPRINE HCL 10 MG ORAL TABLET 1/2 tablet by mouth every 8 hours as needed for muscle spasms CYCLOBENZAPRINE HCL 49451324834 No Longer Active Alina Castaneda MD PhD Active BACTROBAN 2 % EXTERNAL CREAM apply to ear and nose twice daily MUPIROCIN CALCIUM 54100235095 No Longer Active Alina Castaneda MD PhD Active HYDROCODONE-ACETAMINOPHEN 5-325 MG ORAL TABLET take one tablet by mouth every four hours as needed for pain HYDROCODONE-ACETAMINOPHEN 68876702739 No Longer Active Alina Castaneda MD PhD Active ZYPREXA 5 MG ORAL TABLET take one tablet by mouth every evening OLANZAPINE 19118321592 No Longer Active Alina Castaneda MD PhD Active ALBUTEROL SULFATE (2.5 MG/3ML) 0.083% INHALATION NEBULIZATION SOLUTION one vial per nebulizer TID and PRN cough/soa ALBUTEROL SULFATE 75111581195 No Longer Active Alina Castaneda MD PhD Active GUAIFENESIN ER 600 MG ORAL TABLET EXTENDED RELEASE 12 HOUR 1 tablet by mouth twice daily if needed for cough GUAIFENESIN 83274411966 No Longer Active Marvel MENDOZAP Active AZITHROMYCIN 500 MG INTRAVENOUS SOLUTION RECONSTITUTED 1 po q day AZITHROMYCIN 35385770074 No Longer Active Alina Castaneda MD PhD Active PROMETHAZINE-CODEINE 6.25-10 MG/5ML ORAL SYRUP 1 tsp po q 6 hours prn cough PROMETHAZINE-CODEINE 07500254424 No Longer Active Alina Castaneda MD PhD Active CEFDINIR 300 MG ORAL CAPSULE by mouth twice a day CEFDINIR 79340598782 No Longer Active Alina Castaneda MD PhD Active METFORMIN HCL ER 500 MG ORAL TABLET EXTENDED RELEASE 24 HOUR Take 3 tablets by mouth everyday METFORMIN HCL 14350229929 No Longer Active Alina Castaneda MD PhD Active LEVEMIR 100 UNIT/ML SUBCUTANEOUS SOLUTION 90 units SQ qHS INSULIN DETEMIR 40274089627 No Longer Active Marvel MARROQUIN Active TOPROL XL 100 MG ORAL TABLET EXTENDED RELEASE 24 HOUR 1 @ HS METOPROLOL SUCCINATE 37504392002 No Longer Active Marvel MARROQUIN Active ALLOPURINOL 300 MG ORAL TABLET Take one by mouth daily ALLOPURINOL 85191709733 Active Mima Erazo DUPLICATING MACHINE OPERATOR Active ZYPREXA 10 MG ORAL TABLET Take one by mouth daily OLANZAPINE 49269093508 No Longer Active Alina Castaneda MD PhD Active NOVOLOG 100 UNIT/ML SUBCUTANEOUS SOLUTION 40 units with every meal INSULIN ASPART 17401510893 No Longer Active Alina Castaneda MD PhD Active VERAPAMIL HCL ER 120 MG ORAL TABLET EXTENDED RELEASE 1 qPM 09/08 VERAPAMIL HCL 46341930644 No Longer Active Salina ROJAS Active ZYPREXA 15 MG ORAL TABLET Take 1 tablet by mouth daily OLANZAPINE 18481152850 No Longer Active Marvel MARROQUIN Active ALBUTEROL SULFATE (2.5 MG/3ML) 0.083% INHALATION NEBULIZATION SOLUTION 1 neb tid and prn cough ALBUTEROL SULFATE 43668219585 No Longer Active Alina Castaneda MD PhD Active LANTUS 100 UNIT/ML SUBCUTANEOUS SOLUTION 60 units sq q hs INSULIN GLARGINE 23114703033 No Longer Active CRYSTAL Suarez Active ALBUTEROL SULFATE (2.5 MG/3ML) 0.083% INHALATION NEBULIZATION SOLUTION 1 neb tid and prn cough ALBUTEROL SULFATE (2.5 MG/3ML) 0.083% INHALATION NEBULIZATION SOLUTION 766988 ALBUTEROL SULFATE Inactive ZYPREXA 15 MG ORAL TABLET Take 1 tablet by mouth daily ZYPREXA 15 MG ORAL TABLET 871146 OLANZAPINE Inactive VERAPAMIL HCL ER 120 MG ORAL TABLET EXTENDED RELEASE 1 qPM 09/08 VERAPAMIL HCL ER 120 MG ORAL TABLET EXTENDED RELEASE VERAPAMIL HCL Inactive ZYPREXA 10 MG ORAL TABLET Take one by mouth daily ZYPREXA 10 MG ORAL TABLET 755545 OLANZAPINE Inactive TOPROL XL 100 MG ORAL TABLET EXTENDED RELEASE 24 HOUR 1 @ HS TOPROL XL 100 MG ORAL TABLET EXTENDED RELEASE 24 HOUR METOPROLOL SUCCINATE Inactive LEVEMIR 100 UNIT/ML SUBCUTANEOUS SOLUTION 90 units SQ qHS LEVEMIR 100 UNIT/ML SUBCUTANEOUS SOLUTION INSULIN DETEMIR Inactive PROMETHAZINE-CODEINE 6.25-10 MG/5ML ORAL SYRUP 1 tsp po q 6 hours prn cough PROMETHAZINE-CODEINE 6.25-10 MG/5ML ORAL SYRUP 786062 PROMETHAZINE-CODEINE Inactive GUAIFENESIN ER 600 MG ORAL TABLET EXTENDED RELEASE 12 HOUR 1 tablet by mouth twice daily if needed for cough GUAIFENESIN ER 600 MG ORAL TABLET EXTENDED RELEASE 12 HOUR GUAIFENESIN Inactive ALBUTEROL SULFATE (2.5 MG/3ML) 0.083% INHALATION NEBULIZATION SOLUTION one vial per nebulizer TID and PRN cough/soa ALBUTEROL SULFATE (2.5 MG/3ML) 0.083% INHALATION NEBULIZATION SOLUTION 795476 ALBUTEROL SULFATE Inactive ZYPREXA 5 MG ORAL TABLET take one tablet by mouth every evening ZYPREXA 5 MG ORAL TABLET 868127 OLANZAPINE Inactive HYDROCODONE-ACETAMINOPHEN 5-325 MG ORAL TABLET take one tablet by mouth every four hours as needed for pain HYDROCODONE-ACETAMINOPHEN 5-325 MG ORAL TABLET 228320 HYDROCODONE-ACETAMINOPHEN Inactive BACTROBAN 2 % EXTERNAL CREAM apply to ear and nose twice daily BACTROBAN 2 % EXTERNAL CREAM 969798 MUPIROCIN CALCIUM Inactive CYCLOBENZAPRINE HCL 10 MG ORAL TABLET 1/2 tablet by mouth every 8 hours as needed for muscle spasms CYCLOBENZAPRINE HCL 10 MG ORAL TABLET 149071 CYCLOBENZAPRINE HCL Inactive NAVANE 10 MG CAPS 1/2 tablet twice a day NAVANE 10 MG CAPS THIOTHIXENE Inactive DOXEPIN HCL 10 MG ORAL CAPSULE Take 1 tablet by mouth daily DOXEPIN HCL 10 MG ORAL CAPSULE 2755328 DOXEPIN HCL Inactive HYDROCODONE-ACETAMINOPHEN 7.5-325 MG ORAL TABLET 1 four times a day as needed for pain HYDROCODONE-ACETAMINOPHEN 7.5-325 MG ORAL TABLET 237909 HYDROCODONE-ACETAMINOPHEN Inactive NIACIN ER 500 MG ORAL [...] hr. PRN ACETAMINOPHEN 500 MG ORAL TABLET 133890 ACETAMINOPHEN Inactive SAPHRIS 5 MG SUBLINGUAL TABLET SUBLINGUAL by mouth twice a day SAPHRIS 5 MG SUBLINGUAL TABLET SUBLINGUAL ASENAPINE MALEATE Inactive NIACIN ER 500 MG ORAL TABLET EXTENDED RELEASE 4 qHS (for triglycerides) 01/13 NIACIN ER 500 MG ORAL TABLET EXTENDED RELEASE NIACIN Inactive IBUPROFEN 200 MG ORAL TABLET 1 Q 6 hr. PRN IBUPROFEN 200 MG ORAL TABLET 756784 IBUPROFEN Inactive FLUTICASONE PROPIONATE 50 MCG/ACT NASAL SUSPENSION 2 sprays each nostril qDay x 30 days FLUTICASONE PROPIONATE 50 MCG/ACT NASAL SUSPENSION 8593785 FLUTICASONE PROPIONATE Inactive EQL TRUETEST TEST IN [...] at HS ZYPREXA 7.5 MG ORAL TABLET 746733 OLANZAPINE Inactive THIOTHIXENE 5 MG ORAL CAPSULE by mouth twice a day THIOTHIXENE 5 MG ORAL CAPSULE 853953 THIOTHIXENE Inactive UROXATRAL 10 MG ORAL TABLET EXTENDED RELEASE 24 HOUR Take 1 tablet by mouth daily UROXATRAL 10 MG ORAL TABLET EXTENDED RELEASE 24 HOUR ALFUZOSIN HCL Inactive ACYCLOVIR 400 MG ORAL TABLET 1 pill three times daily x 5 days, for cold sore outbreak ACYCLOVIR 400 MG ORAL TABLET 860752 ACYCLOVIR Inactive TRUETEST TEST IN VITRO STRIP check sugars 4x/day TRUETEST TEST IN VITRO STRIP GLUCOSE BLOOD Inactive HUMALOG 100 UNIT/ML SUBCUTANEOUS SOLUTION Take 20 units with breakfast, 10u with lunch and suppetr. HUMALOG 100 UNIT/ML SUBCUTANEOUS SOLUTION INSULIN LISPRO (HUMAN) Inactive CYCLOBENZAPRINE HCL 10 MG ORAL TABLET 1 tablet by mouth three times daily, scheduled CYCLOBENZAPRINE HCL 10 MG ORAL TABLET 643550 CYCLOBENZAPRINE HCL Inactive ACCU-CHEK ROSA IN VITRO STRIP use strips with device to check blood sugars 3 times daily ACCU-CHEK ROSA IN VITRO STRIP GLUCOSE BLOOD Inactive ACCU-CHEK ROSA DEVICE Use device to check blood sugars ACCU-CHEK ROSA DEVICE BLOOD GLUCOSE MONITORING SUPPL Inactive FLUVOXAMINE MALEATE 100 MG ORAL TABLET Take 1/2 tab at noon 03/04 FLUVOXAMINE MALEATE 100 MG ORAL TABLET 933396 FLUVOXAMINE MALEATE Inactive FLUVOXAMINE MALEATE 100 MG ORAL TABLET Take one (1) tablet by mouth am, 1/2 at noon FLUVOXAMINE MALEATE 100 MG ORAL TABLET 149874 FLUVOXAMINE MALEATE Inactive BACTROBAN 2 % EXTERNAL CREAM Apply to affected area BID for up to 10 days BACTROBAN 2 % EXTERNAL CREAM 874301 MUPIROCIN CALCIUM Inactive NOVOFINE 32G X 6 MM use one four times per day NOVOFINE 32G X 6 MM INSULIN PEN NEEDLE Inactive TRAZODONE HCL 100 MG ORAL TABLET 1 tab by mouth for sleep TRAZODONE HCL 100 MG ORAL TABLET 977411 TRAZODONE HCL Inactive LOVAZA 1 GM ORAL CAPSULE 4 daily (for triglycerides) LOVAZA 1 GM ORAL CAPSULE 891156 HOMUE-4-ETSQ ETHYL ESTERS Inactive METFORMIN HCL ER 500 [...] bladder TOLTERODINE TARTRATE 2 MG ORAL TABLET 964880 TOLTERODINE TARTRATE Inactive COLACE 100 MG ORAL CAPSULE 1 pill by mouth twice daily, for constipation 2014 COLACE 100 MG ORAL CAPSULE 7400279 DOCUSATE SODIUM Inactive LOMOTIL 2.5-0.025 MG ORAL TABLET take 1-2 tabs PO after each stool, no more than 8 in 24 hours LOMOTIL 2.5-0.025 MG ORAL TABLET 2828973 DIPHENOXYLATE-ATROPINE Inactive ZOFRAN 4 MG ORAL TABLET 1 po q4hr PRN Nausea ZOFRAN 4 MG ORAL TABLET 599390 ONDANSETRON HCL Inactive HYDROCODONE-ACETAMINOPHEN 5-325 MG ORAL TABLET 2 tabs by mouth three times daily for pain HYDROCODONE-ACETAMINOPHEN 5-325 MG ORAL TABLET 775451 HYDROCODONE-ACETAMINOPHEN Inactive ZOLPIDEM TARTRATE 10 MG ORAL TABLET take at bedtime ZOLPIDEM TARTRATE 10 MG ORAL TABLET 119356 ZOLPIDEM TARTRATE Inactive LISINOPRIL 20 MG ORAL TABLET 1 BID LISINOPRIL 20 MG ORAL TABLET 738317 LISINOPRIL Inactive TRAVATAN Z 0.004 % OPHTHALMIC SOLUTION 1 gtt each eye daily TRAVATAN Z 0.004 % OPHTHALMIC SOLUTION TRAVOPROST Inactive LATUDA 60 MG ORAL TABLET Take one by mouth daily LATUDA 60 MG ORAL TABLET LURASIDONE HCL Inactive FLUVOXAMINE MALEATE 50 MG ORAL TABLET 1 tab by mouth daily 04/01 FLUVOXAMINE MALEATE 50 MG ORAL TABLET 625735 FLUVOXAMINE MALEATE Inactive LEVEMIR FLEXTOUCH 100 UNIT/ML [...] 30G 3 a day TRUEPLUS LANCETS 30G [id number] LANCETS Inactive AMITIZA 24 MCG ORAL CAPSULE [...] noon FLUVOXAMINE MALEATE 100 MG ORAL TABLET 276422 FLUVOXAMINE MALEATE Inactive FLONASE ALLERGY RELIEF 50 MCG/ACT NASAL SUSPENSION One spray each nostril BID x 1 week then daily FLONASE ALLERGY RELIEF 50 MCG/ACT NASAL SUSPENSION 7440838 FLUTICASONE PROPIONATE Inactive IMODIUM A-D 2 MG ORAL TABLET 1 tab QID as needed IMODIUM A-D 2 MG ORAL TABLET 090953 LOPERAMIDE HCL Inactive MYLANTA GAS RELIEF MAXIMUM STR 125 MG ORAL CAPSULE 30cc every 4 hours prn MYLANTA GAS RELIEF MAXIMUM STR 125 MG ORAL CAPSULE SIMETHICONE Inactive TRUEPLUS LANCETS 30G 3x a day TRUEPLUS LANCETS 30G [id number] LANCETS Inactive TRUE METRIX BLOOD GLUCOSE TEST [...] headaches TRAZODONE HCL 100 MG ORAL TABLET 864425 TRAZODONE HCL Inactive TYLENOL 8 HOUR 650 [...] evening TAMSULOSIN HCL 0.4 MG ORAL CAPSULE 537312 TAMSULOSIN HCL Inactive [facility] MEL[facility]ONIN 3 MG ORAL TABLET give 1 tab by mouth at HS [facility] MELATONIN 3 MG ORAL TABLET 19901024 MELATONIN Inactive SEROQUEL 100 MG ORAL TABLET 1 tab daily SEROQUEL 100 MG ORAL TABLET 471255 QUETIAPINE FUMARATE Inactive AMARYL 2 MG ORAL TABLET give 2.5 tabs PO daily AMARYL 2 MG ORAL TABLET 306679 GLIMEPIRIDE Inactive SEROQUEL 25 MG ORAL TABLET Take two tabs by mouth in the morning, take 4 tablets at night SEROQUEL 25 MG ORAL TABLET 758807 QUETIAPINE FUMARATE Inactive QUETIAPINE FUMARATE 25 MG ORAL TABLET 2 tabs BID QUETIAPINE FUMARATE 25 MG ORAL TABLET 561688 QUETIAPINE FUMARATE Inactive QUETIAPINE FUMARATE 100 MG ORAL TABLET 1 tab PO at HS QUETIAPINE FUMARATE 100 MG ORAL TABLET 039600 QUETIAPINE FUMARATE Inactive LATUDA 40 MG ORAL TABLET 1.5 tab by mouth in the afternoon 05/23 LATUDA 40 MG ORAL TABLET LURASIDONE HCL Inactive TOPAMAX 25 MG ORAL TABLET 1 tab BID PRN TOPAMAX 25 MG ORAL TABLET 908990 TOPIRAMATE Inactive EFFEXOR XR 150 MG ORAL [...] mouth q12h, for constipation MIRALAX ORAL POWDER 945906 POLYETHYLENE GLYCOL 3350 Inactive CEFDINIR 300 MG ORAL CAPSULE by mouth twice a day CEFDINIR 300 MG ORAL CAPSULE 207455 CEFDINIR Inactive AZITHROMYCIN 500 MG INTRAVENOUS SOLUTION RECONSTITUTED 1 po q day AZITHROMYCIN 500 MG INTRAVENOUS SOLUTION RECONSTITUTED [id number] AZITHROMYCIN Inactive AMOXICILLIN 500 MG ORAL CAPSULE 2 po BID x 10 days AMOXICILLIN 500 MG ORAL CAPSULE 186111 AMOXICILLIN Inactive PENICILLIN V POTASSIUM 500 MG ORAL TABLET 1 pill by mouth three times daily PENICILLIN V POTASSIUM 500 MG ORAL TABLET 579648 PENICILLIN V POTASSIUM Inactive KEFLEX 500 MG ORAL CAPSULE 1 po BID x 7 days KEFLEX 500 MG ORAL CAPSULE 526852 CEPHALEXIN Inactive Immunizations Vaccine Administration Date Value [...] Fluvirin, Fluarix, Agriflu(>=18 yo)) Fluzone (>3 yrs.) [HIV142] Influenza, seasonal, injectable pneumococcal immunization administered Pneumovax [...] pressure, diastolic, repeated by physician 69 BP agrcia blood pressure, diastolic 69 mm[Hg] BP garcia [...] ... - Chemistry sodium, serum 135 mmol/L 566-880 4547/08/22 carbon dioxide, venous blood 28.4 mmol/L 21.0-32.0 [...] mg/g {creat} 0-29 cholesterol, serum 263 mg/dL 858-129 9356/08/22 triglyceride, serum, fasting 1312 mg/dL 30-200 HDL [...] ordered Encounters Code Encounter Date Provider Facility CPT-97732 Level 3 Est. Patient 16:25:15 MANAGER NEW PRODUCT [facility] CPT-35109 87953-[id number] Vst-Est Level IV 15:10:01 MANAGER NEW PRODUCT Mason Loredo MD [facility] CPT-37570 79242-Cza Vst-Est Level III 11:00:25 CDT Shavonne Feliciano PA-C [facility] CPT-08278 Level 3 Est. Patient 09:12:14 MANAGER NEW PRODUCT Mima Erazo APRN [facility] [place] CPT-61952 Level 3 Est. Patient 16:52:51 CDT Vaenssa Hickey MD [facility] CPT-49303 Level 3 Est. Patient 17:40:16 CDT Mima Vdaimjerrell [facility] CPT-28578 Level 3 Est. Patient 14:34:52 CDT Vanessa Hickey MD [facility]-39269 Level 3 Est. Patient 16:27:51 CDT Mima Jeffliudmila [facility] [place] CPT-57470 Level 3 Est. Patient 14:39:00 MANAGER NEW PRODUCT Vanessa Hickey MD [facility]-67695 Level 2 Est. Patient 18:43:34 CDT Mima Erazo [facility] CPT-22238 Level 3 Est. Patient 16:22:09 CDT Cherelle Avila [facility] CPT-97801 Level 4 Est. Patient 17:55:14 CDT Mima Erazo [facility] CPT-91279 Level 2 Est. Patient 17:13:21 CDT Alina Castaneda MD [facility] [place]-22946 Level 3 Est. Patient 14:46:15 CDT Vanessa Hickey MD [facility]-71831 Level 3 Est. Patient 09:34:56 CDT Alina Castaneda MD [facility]-39242 Level 3 Est. Patient 21:40:19 CDT Mima Vadimjerrell [facility] CPT-17879 Level 3 Est. Patient 09:26:40 CDT Marvel Charles [facility]-15049 Level 3 Est. Patient 12:36:43 CDT Vanessa Hickey MD [facility]-74930 Level 3 Est. Patient 12:57:49 CDT Vanessa Hickey MD [facility]-16326 Level 3 Est. Patient 00:28:25 CDT Alina Castaneda MD [facility]66089 Level 2 Est. Patient 12:52:14 CDT Alina Castaneda MD [facility]-38839 Level 3 Est. Patient 11:51:18 MANAGER NEW PRODUCT Alina Castaneda MD [facility] [place]-76857 Level 3 Est. Patient 10:09:22 MANAGER NEW PRODUCT Alina Castaneda MD [facility]68395 Level 3 Est. Patient 14:36:26 MANAGER NEW PRODUCT Marvel Charles [facility]-88862 Level 3 Est. Patient 13:34:47 MANAGER NEW PRODUCT Alina Castaneda MD [facility]57523 Level 3 Est. Patient 19:52:08 MANAGER NEW PRODUCT Alina Castaneda MD [facility]73050 Level 3 Est. Patient 10:01:51 [facility] NEW PRODUCT [facility]-38023 Level 3 Est. Patient 21:54:06 CDT Vanessa Hickey MD [facility]-24505 Level 3 Est. Patient 08:54:46 CDT Alina aCstaneda MD [facility] [place]-04048 Level 3 Est. Patient 09:32:11 CDT [facility]-73191 Level 3 Est. Patient 12:02:49 CDT Alina Castaneda MD [facility] [place]-46164 Level 3 Est. Patient 19:17:33 CDT Alina Castaneda MD [facility] [place]-77610 Level 3 Est. Patient 13:19:10 CDT Marvel Charles [facility]45471 Level 3 Est. Patient 08:20:05 CDT Alina Castaneda MD [facility]46512 Level 3 Est. Patient 15:17:18 CDT Alina Castaneda MD [facility] [place]-77366 Level 3 Est. Patient 14:25:36 MANAGER NEW PRODUCT Marvel [facility]-22112 Level 3 Est. Patient 10:09:15 MANAGER NEW PRODUCT Marvel Charles [facility]-06925 Level 3 Est. Patient 21:28:43 CDT Alina Castaneda MD [facility] [place]-59521 Level 3 Est. Patient 15:20:11 CDT [facility] Level 4 Est. Patient 19:08:12 CDT Alina Castaneda MD [facility] [place]-74130 Level 3 Est. Patient 15:06:39 [facility]T [facility]-81953 Level 4 Est. Patient 17:48:15 CDT Alina Castaneda MD [facility] [place]-32769 Level 3 Est. Patient 14:53:49 CDT Alina Castaneda MD [facility] [place]-35908 Level 3 Est. Patient 09:35:16 CDT Alina Castaneda MD [facility] [place]-60977 Level 3 Est. Patient 12:23:22 CDT Alina Castaneda MD [facility] [place]-52574 Level 3 Est. Patient 16:19:15 CDT Alina Castaneda MD [facility] [place]-41534 Level 3 Est. Patient 21:39:56 MANAGER NEW PRODUCT Alina Castaneda MD [facility] [place]-08484 Level 4 Est. Patient 14:12:56 MANAGER NEW PRODUCT Alina Castaneda MD [facility] [place]-93635 Level 2 Est. Patient 15:34:57 MANAGER NEW PRODUCT Alina Castaneda MD [facility] [place]-29843 Level 3 Est. Patient 12:17:04 MANAGER NEW PRODUCT Alina Castaneda MD [facility]01259 Level 3 Est. Patient 09:18:18 MANAGER NEW PRODUCT Marvel [facility]-65958 Level 2 Est. Patient 21:50:24 CDT Alina Castaneda MD [facility]59601 Level 3 Est. Patient 09:17:28 CDT Marvel Charles [facility]-47646 Level 4 Est. Patient 18:54:02 CDT Alina Castaneda MD [facility]05500 Level 3 Est. Patient 10:47:10 CDT Alina Castaneda MD [facility]65689 Level 3 Est. Patient 09:22:20 CDT Marvel Charles [facility]-36464 Level 3 Est. Patient 16:39:43 CDT [facility]-55658 Level 3 Est. Patient 16:05:16 CDT Alina Castaneda MD [facility] [place]-62597 Level 3 Est. Patient 00:29:15 CDT Alina Castaneda MD [facility]93197 Level 3 Est. Patient 10:49:22 MANAGER NEW PRODUCT Marvel Charles [facility]80720 Level 3 Est. Patient 21:30:19 MANAGER NEW PRODUCT Alina Castaneda MD [facility]94834 Level 4 Est. Patient 17:04:11 MANAGER NEW PRODUCT Marvel Charles [facility]28941 Level 3 Est. Patient 15:34:11 MANAGER NEW PRODUCT Marvel MENDOZAP [facility] CPT-92718 Level 2 Est. Patient 12:51:58 MANAGER NEW PRODUCT Alina Castaneda MD PhD [facility] CPT-77231 Level 3 Est. Patient 13:20:01 MANAGER NEW PRODUCT Alina Castaneda MD PhD [facility] CPT-62850 Level 3 Est. Patient 09:23:35 CDT Alina Castaneda MD PhD [facility] Procedures Code Procedure Name Date Entry Date Standard Description CPT-48247 Level 2 Alf 14:06:10 MANAGER NEW PRODUCT CPT-G0439 [facility] Annual Wellness Exam 15:49:52 MANAGER NEW PRODUCT CPT-64097 Level 3 Alf 13:20:19 CDT CPT-TCMM Transitional Care Mgmt-Moderate 12:32:19 CDT CPT-96392 Level 2 Alf 09:01:11 CDT CPT-29737 HGBA1C - LAB USE ONLY 09:30:27 MANAGER NEW PRODUCT CPT-57323 BMP - LAB USE ONLY 09:30:27 MANAGER NEW PRODUCT CPT-26526 Venipuncture Draw Fee 09:30:26 MANAGER NEW PRODUCT CPT-TCMM Transitional Care Mgmt-Moderate 10:25:31 CDT CPT-80285 Bladder Scan 14:34:53 CDT CPT-61162 Bladder Scan 14:39:01 MANAGER NEW PRODUCT CPT-TCMM Transitional Care Mgmt-Moderate 10:30:19 MANAGER NEW PRODUCT CPT-72344 Bladder Scan 12:36:44 CDT CPT-54920 Bladder Scan 21:54:06 CDT CPT-G0008 Administration of Influenza Virus Vaccine 13:05:26 CDT CPT-18242 Fluzone Quadrivalent Intramuscular Suspension 0.5 ML 13: 05:26 CDT CPT-90337 Administration single or combination vaccine inc oral 11 :49:51 CDT CPT-64756 Pneumovax 11:49:51 CDT CPT-07981 Ribs unilateral 2V 12:37:22 MANAGER NEW PRODUCT CPT-99161 Chest 2V Frontal and Lat 17:15:26 CDT CPT-38409 Abx/Therapy Injection 18:54:02 CDT CPT-J0696 Rocephin 1000 mg (Ceftriaxone) 16:00:32 CDT CPT-79401 Chest 2V Frontal and Lat 15:26:45 CDT CPT-97113 Chest 2V Frontal and Lat 10:23:27 CDT CPT-80962 Venipuncture Draw Fee 10:11:00 CDT CPT-70981 Administration single or combination vaccine inc oral 11 :56:38 CDT CPT-64412 Influenza split virus > age 3 11:56:38 CDT CPT-70105 Venipuncture Draw Fee 08:49:54 MANAGER NEW PRODUCT CPT-32955 EKG Trac and Interp 17:54:19 MANAGER NEW PRODUCT
--- OUTSIDE RECORDS SUMMARY | 2018-07-02 14:44 | XMS REPORT | Clinical Summary ---
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 [employer] Benign paroxysmal positional vertigo High-risk sexual behavior [...] MD Colitis ICD-558.9 Inactive Shavonne Feliciano PA-C SINUSITIS, ACUTE ICD-461.9 Inactive Alina Castaneda MD PhD Diabetes mellitus, type II, uncontrolled ICD-250.02 Inactive Alina Castaneda MD PhD Chronic pain - on daily narcotics ICD-338.29 Inactive Gabrielle Marquez MA Symptom, polydipsia ICD-783.5 Inactive Shavonne Feliciano PA-C Body Mass Index 31.0-31.9 Adult Inactive Gabrielle Marquez MA Body Mass Index 30.0-30.9 Adult Inactive Paige Lange MA Medication List Medication Instructions Start Date Stop Date Generic Name NDC Status Provider Patient Instruction MIRALAX ORAL POWDER 17 gram by mouth once daily POLYETHYLENE GLYCOL 3350 [id number] Active Cherelle Souza RN Active CLONAZEPAM 1 MG ORAL TABLET 1 tablet by mouth three times daily CLONAZEPAM 36301556142 Active Cherelle Souza RN Active MIRALAX ORAL POWDER 17g by mouth q12h, for constipation POLYETHYLENE GLYCOL 3350 [id number] No Longer Active Cherelle Souza RN Active LACTOBACILLUS ORAL TABLET 1 tablet by mouth at bedtime for probiotic LACTOBACILLUS 41573809769 Active Cherelle Souza RN Active D 2000 2000 UNIT ORAL TABLET 1 tablet by mouth twice daily CHOLECALCIFEROL 79394619740 Active Cherelle Souza RN Active DIVALPROEX SODIUM ER 500 MG ORAL TABLET EXTENDED RELEASE 24 HOUR 3 tablets by mouth at bedtime for Mood DIVALPROEX SODIUM 24694189204 Active Cherelle Souza RN Active GLIMEPIRIDE 4 MG ORAL TABLET 1 tablet by mouth once daily GLIMEPIRIDE 56363209463 Active Cherelle Souza RN Active VENLAFAXINE HCL ER 150 MG ORAL CAPSULE EXTENDED RELEASE 24 HOUR 1 tablet by mouth once daily VENLAFAXINE HCL 15520196799 Active Cherelle Souza RN Active RISPERDAL 2 MG ORAL TABLET Take 1 tablet by mouth three times a day RISPERIDONE 33205178665 Active Mya Ledezma MA Active [facility] MILK OF MAGNESIA 400 MG/5ML ORAL SUSPENSION 30ml by mouth bid prn MAGNESIUM HYDROXIDE 01129318516 No Longer Active Mya Ledezma MA Active [facility] MELATONIN 3 MG ORAL TABLET 1 tab nightly MELATONIN 66551019597 No Longer Active Mya Ledezma MA Active AMBIEN 10 MG ORAL TABLET 1 at night as needed for sleep ZOLPIDEM TARTRATE 72084222381 Active Mason Loredo MD Active VERAPAMIL HCL ER 180 MG ORAL TABLET EXTENDED RELEASE 1 pill by mouth twice daily, for migraine prevention VERAPAMIL HCL 47017618230 No Longer Active Mason Loredo MD Active EFFEXOR XR 150 MG ORAL CAPSULE EXTENDED RELEASE 24 HOUR 1 tab daily VENLAFAXINE HCL 57081090627 No Longer Active Mason Loredo MD Active TOPAMAX 25 MG ORAL TABLET 1 tab BID PRN TOPIRAMATE 08867765220 No Longer Active Mason Loredo MD Active LATUDA 40 MG ORAL TABLET 1.5 tab by mouth in the afternoon 05/23 LURASIDONE HCL 41109199286 No Longer Active Mason Loredo MD Active QUETIAPINE FUMARATE 100 MG ORAL TABLET 1 tab PO at HS QUETIAPINE FUMARATE 80565142923 No Longer Active Mason Loredo MD Active QUETIAPINE FUMARATE 25 MG ORAL TABLET 2 tabs BID QUETIAPINE FUMARATE 88512435886 No Longer Active Mason Loredo MD Active ATORVASTATIN CALCIUM 10 MG ORAL TABLET Take 1 tablet by mouth daily. Recheck labs in 3 months ATORVASTATIN CALCIUM 23484350332 Active Mya Ledezma MA Active VERAPAMIL HCL ER 180 MG ORAL TABLET EXTENDED RELEASE 1 tab BID VERAPAMIL HCL 84958556678 Active Shavonne Feliciano PA-C Active SEROQUEL 25 MG ORAL TABLET Take two tabs by mouth in the morning, take 4 tablets at night QUETIAPINE FUMARATE 43430508900 No Longer Active Shavonne Feliciano PA-C Active AMARYL 2 MG ORAL TABLET give 2.5 tabs PO daily GLIMEPIRIDE 46063720617 No Longer Active Shavonne Feliciano PA-C Active FENOFIBRATE 145 MG ORAL TABLET 1 tab PO in the morning FENOFIBRATE 72461872838 Active Shavonne Feliciano PA-C Active SEROQUEL 100 MG ORAL TABLET 1 tab daily QUETIAPINE FUMARATE 51932845487 No Longer Active Shavonne Feliciano PA-C Active [facility] MELATONIN 3 MG ORAL TABLET give 1 tab by mouth at HS MELATONIN 74944591740 No Longer Active Gabrielle Marquez MA Active NOVOLOG FLEXPEN 100 UNIT/ML SUBCUTANEOUS SOLUTION PEN-INJECTOR sliding scale INSULIN ASPART 36009540279 Active Gabrielle Marquez MA Active METFORMIN HCL 1000 MG ORAL TABLET 1 tab by mouth BID METFORMIN HCL 05712722598 Active Gabrielleadrienne Marquez MA Active TAMSULOSIN HCL 0.4 MG ORAL CAPSULE give 2 capsules PO each evening TAMSULOSIN HCL 96912907417 No Longer Active Gabrielleadrienne Marquez MA Active VITAMIN D 2000 UNIT ORAL CAPSULE Take one by mouth daily CHOLECALCIFEROL 52393428925 No Longer Active Gabrielleadrienne Marquez MA Active LEVEMIR 100 UNIT/ML SUBCUTANEOUS SOLUTION 10 u at bedtime INSULIN DETEMIR 76552491027 Active Gabrielle Littleananda NOEL Active TAMSULOSIN HCL 0.4 MG ORAL CAPSULE 2 every night for urine flow TAMSULOSIN HCL 91136372140 Active Gabrielle Sidneyananda NOEL Active ALIGN 4 MG ORAL CAPSULE 1 tab at hs PROBIOTIC PRODUCT 63078254732 No Longer Active Gabrielle Marquez MA Active OCEAN NASAL SPRAY SOLUTION 2 sprays in both nostrils every 8 hours as needed for dry mucous membranes SALINE SOLN 58453251848 Active Mason Loredo MD Active BETHANECHOL CHLORIDE 25 MG ORAL TABLET Take 1 tablet mouth four times a day BETHANECHOL CHLORIDE 67559437857 Active Mason Loredo MD Active [facility] LUBRICANT EYE DROPS 0.4-0.3 % OPHTHALMIC SOLUTION POLYETHYL GLYCOL-PROPYL GLYCOL 76984349375 No Longer Active Mason Loredo MD Active TYLENOL 8 HOUR 650 MG ORAL TABLET EXTENDED RELEASE 1 tab QID prn ACETAMINOPHEN 61835647836 No Longer Active Mason Loredo MD Active TIMOPTIC OCUDOSE 0.5 % OPHTHALMIC SOLUTION instill one drop into both eyes q12H TIMOLOL MALEATE 82956178112 Active Mason Loredo MD Active TRAZODONE HCL 100 MG ORAL TABLET 1 every night to prevent headaches TRAZODONE HCL 53149436872 No Longer Active Mason Loredo MD Active TRAVATAN Z 0.004 % OPHTHALMIC SOLUTION 1 drop each eye daily 2017 TRAVOPROST 17915343773 No Longer Active Mason Loredo MD Active LATUDA 60 MG ORAL TABLET 1 tab daily LURASIDONE HCL 40375943926 No Longer Active Mason Loredo MD Active MORPHINE SULFATE ER 30 MG ORAL TABLET EXTENDED RELEASE Take one capsule BID MORPHINE SULFATE 43410622741 No Longer Active Mason Loredo MD Active TRUE METRIX BLOOD GLUCOSE TEST IN VITRO STRIP Check blood sugars 3x/day. 2015 GLUCOSE BLOOD 21314756322 No Longer Active Mason Loredo MD Active TRUEPLUS LANCETS 30G 3x a day LANCETS 50636072992 No Longer Active Mason Loredo MD Active MYLANTA GAS RELIEF MAXIMUM STR 125 MG ORAL CAPSULE 30cc every 4 hours prn SIMETHICONE 38587195498 No Longer Active Mason Loredo MD Active IMODIUM A-D 2 MG ORAL TABLET 1 tab QID as needed LOPERAMIDE HCL 87287602197 No Longer Active Mason Loredo MD Active FLONASE ALLERGY RELIEF 50 MCG/ACT NASAL SUSPENSION One spray each nostril BID x 1 week then daily FLUTICASONE PROPIONATE 24642901145 No Longer Active Mason Loredo MD Active FLUVOXAMINE MALEATE 100 MG ORAL TABLET take one tab every AM et HS, and take 1 /2 tab at noon FLUVOXAMINE MALEATE 91784856255 No Longer Active Mason Loredo MD Active BD PEN NEEDLE MINI U/F 31G X 5 MM 4 a day INSULIN PEN NEEDLE 89577282714 No Longer Active Mason Loredo MD Active AMITIZA 24 MCG ORAL CAPSULE Take one capsule BID for constipation LUBIPROSTONE 60550387138 No Longer Active Mason Loredo MD Active TRUEPLUS LANCETS 30G 3 a day LANCETS 83180656032 No Longer Active Mason Loredo MD Active CORICIDIN HBP CONGESTION/COUGH 10-200 MG ORAL CAPSULE Take as directed on box as needed for cold/flu symptoms DEXTROMETHORPHAN- GUAIFENESIN 58010112777 No Longer Active Mason Loredo MD Active OMEGA-3 300 MG ORAL CAPSULE 4 caps by mouth daily OMEGA-3 FATTY ACIDS 33881988958 No Longer Active Mason Loredo MD Active HUMALOG KWIKPEN 100 UNIT/ML SUBCUTANEOUS SOLUTION PEN-INJECTOR sliding scale if needed INSULIN LISPRO (HUMAN) 65664435762 No Longer Active Mason Loredo MD Active TRUETEST TEST IN VITRO STRIP check blood sugars 3x/day GLUCOSE BLOOD 25463822243 No Longer Active Mason Lordeo MD Active ALFUZOSIN HCL ER 10 MG ORAL TABLET EXTENDED RELEASE 24 HOUR 1 tablet daily ALFUZOSIN HCL 52737435143 No Longer Active Mason Loredo MD Active BD INSULIN SYRINGE 28G X 1/2" 1 ML 1 four times per day INSULIN SYRINGE-NEEDLE U-100 33682117613 No Longer Active Mason Loredo MD Active LEVEMIR FLEXTOUCH 100 UNIT/ML SUBCUTANEOUS SOLUTION PEN-INJECTOR 60 units SQ each evening, for diabetes INSULIN DETEMIR 13347630035 No Longer Active Mason Loredo MD Active LACTULOSE 20 GM/30ML ORAL SOLUTION give 30 Ml PO BID PRN LACTULOSE 29690958496 Active Mason Loredo MD Active COLACE 100 MG ORAL CAPSULE 1 tab BID PRN DOCUSATE SODIUM 31074575826 Active Mason Loredo MD Active LATANOPROST 0.005 % OPHTHALMIC SOLUTION instill 1 drop in both eyes at bed time LATANOPROST 04186611551 Active Mason Loredo MD Active IBUPROFEN 400 MG ORAL TABLET 1 tab Q6H PRN IBUPROFEN 39277590544 Active Mason Loredo MD Active FLUVOXAMINE MALEATE 50 MG ORAL TABLET 1 tab by mouth daily 04/01 FLUVOXAMINE MALEATE 13363191613 No Longer Active Mima Erazo APRN Active TRUE METRIX METER w/Device KIT Check blood sugars 3x/day BLOOD GLUCOSE MONITORING SUPPL 31094531602 Active Marvel Mackenzieglari MANUFACTURER Active LATUDA 60 MG ORAL TABLET Take one by mouth daily LURASIDONE HCL 92668449061 No Longer Active Mima Erazo APRN Active TRAVATAN Z 0.004 % OPHTHALMIC SOLUTION 1 gtt each eye daily TRAVOPROST 17840078912 No Longer Active Mason Loredo MD Active LISINOPRIL 20 MG ORAL TABLET 1 BID LISINOPRIL 26588988543 No Longer Active Mason Loredo MD Active ZOLPIDEM TARTRATE 10 MG ORAL TABLET take at bedtime ZOLPIDEM TARTRATE 59213423450 No Longer Active Mason Loredo MD Active HYDROCODONE-ACETAMINOPHEN 5-325 MG ORAL TABLET 2 tabs by mouth three times daily for pain HYDROCODONE-ACETAMINOPHEN 61629307625 No Longer Active Mason Loredo MD Active ZOFRAN 4 MG ORAL TABLET 1 po q4hr PRN Nausea ONDANSETRON HCL 19624692720 No Longer Active Mason Loredo MD Active LOMOTIL 2.5-0.025 MG ORAL TABLET take 1-2 tabs PO after each stool, no more than 8 in 24 hours DIPHENOXYLATE-ATROPINE 17092496493 No Longer Active Mason Loredo MD Active COLACE 100 MG ORAL CAPSULE 1 pill by mouth twice daily, for constipation 2014 DOCUSATE SODIUM 08105538219 No Longer Active Mima 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 LUBIPROSTONE 94134586093 No Longer Active Vanessa Hickey MD Active METOPROLOL SUCCINATE ER 100 MG ORAL TABLET EXTENDED RELEASE 24 HOUR 1 by mouth daily for blood pressure METOPROLOL SUCCINATE 87172981782 No Longer Active Grace Azam RMA Active METFORMIN HCL ER 500 MG ORAL TABLET EXTENDED RELEASE 24 HOUR Take three tablets by mouth everyday METFORMIN HCL 76880929534 No Longer Active Grace Azam RMA Active LOVAZA 1 GM ORAL CAPSULE 4 daily (for triglycerides) [id number] ETHYL ESTERS 81409459449 No Longer Active Grace Azam RMA Active TRAZODONE HCL 100 MG ORAL TABLET 1 tab by mouth for sleep TRAZODONE HCL 36398545553 No Longer Active Grace Azam RMA Active NOVOFINE 32G X 6 MM use one four times per day INSULIN PEN NEEDLE 72537019663 No Longer Active Grace Azam RMA Active BACTROBAN 2 % EXTERNAL CREAM Apply to affected area BID for up to 10 days MUPIROCIN CALCIUM 20595355824 No Longer Active Grace Azam RMA Active KEFLEX 500 MG ORAL CAPSULE 1 po BID x 7 days CEPHALEXIN 65353702625 No Longer Active Cherelle Avila APRN Active FLUVOXAMINE MALEATE 100 MG ORAL TABLET Take one (1) tablet by mouth am, 1/2 at noon FLUVOXAMINE MALEATE 78926257694 No Longer Active Mima Erazo APRN Active FLUVOXAMINE MALEATE 100 MG ORAL TABLET Take 1/2 tab at noon 03/04 FLUVOXAMINE MALEATE 76910781531 No Longer Active Cherelle Avila APRN Active ACCU-CHEK ROSA DEVICE Use device to check blood sugars BLOOD GLUCOSE MONITORING SUPPL 40615659359 No Longer Active Marvel MARROQUIN Active ACCU-CHEK ROSA IN VITRO STRIP use strips with device to check blood sugars 3 times daily GLUCOSE BLOOD 69162846208 No Longer Active Brooksjohn MARROQUIN Active CYCLOBENZAPRINE HCL 10 MG ORAL TABLET 1 tablet by mouth three times daily, scheduled CYCLOBENZAPRINE HCL 84825739159 No Longer Active Alina Castaneda MD PhD Active HUMALOG 100 UNIT/ML SUBCUTANEOUS SOLUTION Take 20 units with breakfast, 10u with lunch and suppetr. INSULIN LISPRO (HUMAN) 64767311277 No Longer Active Alina Castaneda MD PhD Active TRUETEST TEST IN VITRO STRIP check sugars 4x/day GLUCOSE BLOOD 44400288284 No Longer Active Alina Castaneda MD PhD Active MORPHINE SULFATE 30 MG ORAL TABLET 1 pill by mouth twice daily, for pain 2013 MORPHINE SULFATE 83597810370 No Longer Active Mason Loredo MD Active ACYCLOVIR 400 MG ORAL TABLET 1 pill three times daily x 5 days, for cold sore outbreak ACYCLOVIR 17170654884 No Longer Active Alina Castaneda MD PhD Active PENICILLIN V POTASSIUM 500 MG ORAL TABLET 1 pill by mouth three times daily PENICILLIN V POTASSIUM 43959518351 No Longer Active Alina Castaneda MD PhD Active UROXATRAL 10 MG ORAL TABLET EXTENDED RELEASE 24 HOUR Take 1 tablet by mouth daily ALFUZOSIN HCL 12545092690 No Longer Active Alina Castaneda MD PhD Active THIOTHIXENE 5 MG ORAL CAPSULE by mouth twice a day THIOTHIXENE 11905590919 No Longer Active Alina Castaneda MD PhD Active ZYPREXA 7.5 MG ORAL TABLET 1 at HS OLANZAPINE 92510809730 No Longer Active Alina Castaneda MD PhD Active DETROL LA 4 MG ORAL CAPSULE EXTENDED RELEASE 24 HOUR Take 1 tablet by mouth daily TOLTERODINE TARTRATE 64082128232 No Longer Active Alina Castaneda MD PhD Active TERESE CONTOUR TEST IN VITRO STRIP monitor blood sugars 3x/day GLUCOSE BLOOD 33868244181 No Longer Active Alina Castaneda MD PhD Active EQL TRUETEST TEST IN VITRO STRIP Test blood sugar TID GLUCOSE BLOOD 64167869746 No Longer Active Alina Castaneda MD PhD Active FLUTICASONE PROPIONATE 50 MCG/ACT NASAL SUSPENSION 2 sprays each nostril qDay x 30 days FLUTICASONE PROPIONATE 03995896798 No Longer Active Alina Castaneda MD PhD Active IBUPROFEN 200 MG ORAL TABLET 1 Q 6 hr. PRN IBUPROFEN 07392494286 No Longer Active Alina Castaneda MD PhD Active NIACIN ER 500 MG ORAL TABLET EXTENDED RELEASE 4 qHS (for triglycerides) 01/13 NIACIN 19386354480 No Longer Active Alina Castaneda MD PhD Active SAPHRIS 5 MG SUBLINGUAL TABLET SUBLINGUAL by mouth twice a day ASENAPINE MALEATE 76816257727 No Longer Active Maljohn Ziglari MANUFACTURER Active ACETAMINOPHEN 500 MG ORAL TABLET 2 Q 6 hr. PRN ACETAMINOPHEN 17356525508 No Longer Active Maliheh Ziglari MANUFACTURER Active ORPHENADRINE CITRATE ER 100 MG ORAL TABLET EXTENDED RELEASE 12 HOUR 1 every 12 hr. as needed ORPHENADRINE CITRATE 50695938343 No Longer Active Alina Castaneda MD PhD Active NIACIN ER 500 MG ORAL TABLET EXTENDED RELEASE 2 qHS NIACIN 67404132127 No Longer Active Alina Castaneda MD PhD Active AMOXICILLIN 500 MG ORAL CAPSULE 2 po BID x 10 days AMOXICILLIN 31004681813 No Longer Active Alina Castaneda MD PhD Active HYDROCODONE-ACETAMINOPHEN 7.5-325 MG ORAL TABLET 1 four times a day as needed for pain HYDROCODONE-ACETAMINOPHEN 24048414194 No Longer Active Alina Castaneda MD PhD Active DOXEPIN HCL 10 MG ORAL CAPSULE Take 1 tablet by mouth daily DOXEPIN HCL 83545760694 No Longer Active Salina Han [facility] Active NAVANE 10 MG CAPS 1/2 tablet twice a day THIOTHIXENE No Longer Active Salina Han [facility] Active CYCLOBENZAPRINE HCL 10 MG ORAL TABLET 1/2 tablet by mouth every 8 hours as needed for muscle spasms CYCLOBENZAPRINE HCL 67686372877 No Longer Active Alina Castaneda MD PhD Active BACTROBAN 2 % EXTERNAL CREAM apply to ear and nose twice daily MUPIROCIN CALCIUM 02945099355 No Longer Active Alina Castaneda MD PhD Active HYDROCODONE-ACETAMINOPHEN 5-325 MG ORAL TABLET take one tablet by mouth every four hours as needed for pain HYDROCODONE-ACETAMINOPHEN 40353634035 No Longer Active Alina Castaneda MD PhD Active ZYPREXA 5 MG ORAL TABLET take one tablet by mouth every evening OLANZAPINE 44598134125 No Longer Active Alina Castaneda MD PhD Active ALBUTEROL SULFATE (2.5 MG/3ML) 0.083% INHALATION NEBULIZATION SOLUTION one vial per nebulizer TID and PRN cough/soa ALBUTEROL SULFATE 08553425277 No Longer Active Alina Castaneda MD PhD Active GUAIFENESIN ER 600 MG ORAL TABLET EXTENDED RELEASE 12 HOUR 1 tablet by mouth twice daily if needed for cough GUAIFENESIN 31152668246 No Longer Active Marvel MENDOZAP Active AZITHROMYCIN 500 MG INTRAVENOUS SOLUTION RECONSTITUTED 1 po q day AZITHROMYCIN 98131987218 No Longer Active Alina Castaneda MD PhD Active PROMETHAZINE-CODEINE 6.25-10 MG/5ML ORAL SYRUP 1 tsp po q 6 hours prn cough PROMETHAZINE-CODEINE 20130655301 No Longer Active Alina Castaneda MD PhD Active CEFDINIR 300 MG ORAL CAPSULE by mouth twice a day CEFDINIR 19937701335 No Longer Active Alina Castaneda MD PhD Active METFORMIN HCL ER 500 MG ORAL TABLET EXTENDED RELEASE 24 HOUR Take 3 tablets by mouth everyday METFORMIN HCL 52201876911 No Longer Active Alina Castaneda MD PhD Active LEVEMIR 100 UNIT/ML SUBCUTANEOUS SOLUTION 90 units SQ qHS INSULIN DETEMIR 75156920005 No Longer Active Marvel MARROQUIN Active TOPROL XL 100 MG ORAL TABLET EXTENDED RELEASE 24 HOUR 1 @ HS METOPROLOL SUCCINATE 79899889759 No Longer Active Marvel MARROQUIN Active ALLOPURINOL 300 MG ORAL TABLET Take one by mouth daily ALLOPURINOL 66347817322 Active Mima 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 ZYPREXA 10 MG ORAL TABLET Take one by mouth daily OLANZAPINE 96225067385 No Longer Active Alina Castaneda MD PhD Active NOVOLOG 100 UNIT/ML SUBCUTANEOUS SOLUTION 40 units with every meal INSULIN ASPART 25024234897 No Longer Active Alina Castaneda MD PhD Active VERAPAMIL HCL ER 120 MG ORAL TABLET EXTENDED RELEASE 1 qPM 09/08 VERAPAMIL HCL 56517673334 No Longer Active Salina ROJAS Active ZYPREXA 15 MG ORAL TABLET Take 1 tablet by mouth daily OLANZAPINE 53449895015 No Longer Active Marvel MARROQUIN Active ALBUTEROL SULFATE (2.5 MG/3ML) 0.083% INHALATION NEBULIZATION SOLUTION 1 neb tid and prn cough ALBUTEROL SULFATE 94114740447 No Longer Active Alina Castaneda MD PhD Active LANTUS 100 UNIT/ML SUBCUTANEOUS SOLUTION 60 units sq q hs INSULIN GLARGINE 45530335372 No Longer Active CRYSTAL Suarez Active ALBUTEROL SULFATE (2.5 MG/3ML) 0.083% INHALATION NEBULIZATION SOLUTION 1 neb tid and prn cough ALBUTEROL SULFATE (2.5 MG/3ML) 0.083% INHALATION NEBULIZATION SOLUTION 935620 ALBUTEROL SULFATE Inactive ZYPREXA 15 MG ORAL TABLET Take 1 tablet by mouth daily ZYPREXA 15 MG ORAL TABLET 040840 OLANZAPINE Inactive VERAPAMIL HCL ER 120 MG ORAL TABLET EXTENDED RELEASE 1 qPM 09/08 VERAPAMIL HCL ER 120 MG ORAL TABLET EXTENDED RELEASE VERAPAMIL HCL Inactive ZYPREXA 10 MG ORAL TABLET Take one by mouth daily ZYPREXA 10 MG ORAL TABLET 821630 OLANZAPINE Inactive TOPROL XL 100 MG ORAL TABLET EXTENDED RELEASE 24 HOUR 1 @ HS TOPROL XL 100 MG ORAL TABLET EXTENDED RELEASE 24 HOUR METOPROLOL SUCCINATE Inactive LEVEMIR 100 UNIT/ML SUBCUTANEOUS SOLUTION 90 units SQ qHS LEVEMIR 100 UNIT/ML SUBCUTANEOUS SOLUTION INSULIN DETEMIR Inactive PROMETHAZINE-CODEINE 6.25-10 MG/5ML ORAL SYRUP 1 tsp po q 6 hours prn cough PROMETHAZINE-CODEINE 6.25-10 MG/5ML ORAL SYRUP 594874 PROMETHAZINE-CODEINE Inactive GUAIFENESIN ER 600 MG ORAL TABLET EXTENDED RELEASE 12 HOUR 1 tablet by mouth twice daily if needed for cough GUAIFENESIN ER 600 MG ORAL TABLET EXTENDED RELEASE 12 HOUR GUAIFENESIN Inactive ALBUTEROL SULFATE (2.5 MG/3ML) 0.083% INHALATION NEBULIZATION SOLUTION one vial per nebulizer TID and PRN cough/soa ALBUTEROL SULFATE (2.5 MG/3ML) 0.083% INHALATION NEBULIZATION SOLUTION 221745 ALBUTEROL SULFATE Inactive ZYPREXA 5 MG ORAL TABLET take one tablet by mouth every evening ZYPREXA 5 MG ORAL TABLET 761000 OLANZAPINE Inactive HYDROCODONE-ACETAMINOPHEN 5-325 MG ORAL TABLET take one tablet by mouth every four hours as needed for pain HYDROCODONE-ACETAMINOPHEN 5-325 MG ORAL TABLET 036455 HYDROCODONE-ACETAMINOPHEN Inactive BACTROBAN 2 % EXTERNAL CREAM apply to ear and nose twice daily BACTROBAN 2 % EXTERNAL CREAM 018941 MUPIROCIN CALCIUM Inactive CYCLOBENZAPRINE HCL 10 MG ORAL TABLET 1/2 tablet by mouth every 8 hours as needed for muscle spasms CYCLOBENZAPRINE HCL 10 MG ORAL TABLET 410781 CYCLOBENZAPRINE HCL Inactive NAVANE 10 MG CAPS 1/2 tablet twice a day NAVANE 10 MG CAPS THIOTHIXENE Inactive DOXEPIN HCL 10 MG ORAL CAPSULE Take 1 tablet by mouth daily DOXEPIN HCL 10 MG ORAL CAPSULE 2697427 DOXEPIN HCL Inactive HYDROCODONE-ACETAMINOPHEN 7.5-325 MG ORAL TABLET 1 four times a day as needed for pain HYDROCODONE-ACETAMINOPHEN 7.5-325 MG ORAL TABLET 589941 HYDROCODONE-ACETAMINOPHEN Inactive NIACIN ER 500 MG ORAL [...] hr. PRN ACETAMINOPHEN 500 MG ORAL TABLET 314307 ACETAMINOPHEN Inactive SAPHRIS 5 MG SUBLINGUAL TABLET SUBLINGUAL by mouth twice a day SAPHRIS 5 MG SUBLINGUAL TABLET SUBLINGUAL ASENAPINE MALEATE Inactive NIACIN ER 500 MG ORAL TABLET EXTENDED RELEASE 4 qHS (for triglycerides) 01/13 NIACIN ER 500 MG ORAL TABLET EXTENDED RELEASE NIACIN Inactive IBUPROFEN 200 MG ORAL TABLET 1 Q 6 hr. PRN IBUPROFEN 200 MG ORAL TABLET 178036 IBUPROFEN Inactive FLUTICASONE PROPIONATE 50 MCG/ACT NASAL SUSPENSION 2 sprays each nostril qDay x 30 days FLUTICASONE PROPIONATE 50 MCG/ACT NASAL SUSPENSION 6015439 FLUTICASONE PROPIONATE Inactive EQL TRUETEST TEST IN [...] at HS ZYPREXA 7.5 MG ORAL TABLET 838749 OLANZAPINE Inactive THIOTHIXENE 5 MG ORAL CAPSULE by mouth twice a day THIOTHIXENE 5 MG ORAL CAPSULE 294306 THIOTHIXENE Inactive UROXATRAL 10 MG ORAL TABLET EXTENDED RELEASE 24 HOUR Take 1 tablet by mouth daily UROXATRAL 10 MG ORAL TABLET EXTENDED RELEASE 24 HOUR ALFUZOSIN HCL Inactive ACYCLOVIR 400 MG ORAL TABLET 1 pill three times daily x 5 days, for cold sore outbreak ACYCLOVIR 400 MG ORAL TABLET 562327 ACYCLOVIR Inactive TRUETEST TEST IN VITRO STRIP check sugars 4x/day TRUETEST TEST IN VITRO STRIP GLUCOSE BLOOD Inactive HUMALOG 100 UNIT/ML SUBCUTANEOUS SOLUTION Take 20 units with breakfast, 10u with lunch and suppetr. HUMALOG 100 UNIT/ML SUBCUTANEOUS SOLUTION INSULIN LISPRO (HUMAN) Inactive CYCLOBENZAPRINE HCL 10 MG ORAL TABLET 1 tablet by mouth three times daily, scheduled CYCLOBENZAPRINE HCL 10 MG ORAL TABLET 306448 CYCLOBENZAPRINE HCL Inactive ACCU-CHEK ROSA IN VITRO STRIP use strips with device to check blood sugars 3 times daily ACCU-CHEK ROSA IN VITRO STRIP GLUCOSE BLOOD Inactive ACCU-CHEK ROSA DEVICE Use device to check blood sugars ACCU-CHEK ROSA DEVICE BLOOD GLUCOSE MONITORING SUPPL Inactive FLUVOXAMINE MALEATE 100 MG ORAL TABLET Take 1/2 tab at noon 03/04 FLUVOXAMINE MALEATE 100 MG ORAL TABLET 755144 FLUVOXAMINE MALEATE Inactive FLUVOXAMINE MALEATE 100 MG ORAL TABLET Take one (1) tablet by mouth am, 1/2 at noon FLUVOXAMINE MALEATE 100 MG ORAL TABLET 988484 FLUVOXAMINE MALEATE Inactive BACTROBAN 2 % EXTERNAL CREAM Apply to affected area BID for up to 10 days BACTROBAN 2 % EXTERNAL CREAM 871522 MUPIROCIN CALCIUM Inactive NOVOFINE 32G X 6 MM use one four times per day NOVOFINE 32G X 6 MM INSULIN PEN NEEDLE Inactive TRAZODONE HCL 100 MG ORAL TABLET 1 tab by mouth for sleep TRAZODONE HCL 100 MG ORAL TABLET 490864 TRAZODONE HCL Inactive LOVAZA 1 GM ORAL CAPSULE 4 daily (for triglycerides) LOVAZA 1 GM ORAL CAPSULE 401410 CONUV-4-HAEP ETHYL ESTERS Inactive METFORMIN HCL ER 500 [...] bladder TOLTERODINE TARTRATE 2 MG ORAL TABLET 934870 TOLTERODINE TARTRATE Inactive COLACE 100 MG ORAL CAPSULE 1 pill by mouth twice daily, for constipation 2014 COLACE 100 MG ORAL CAPSULE 5066126 DOCUSATE SODIUM Inactive LOMOTIL 2.5-0.025 MG ORAL TABLET take 1-2 tabs PO after each stool, no more than 8 in 24 hours LOMOTIL 2.5-0.025 MG ORAL TABLET 7676349 DIPHENOXYLATE-ATROPINE Inactive ZOFRAN 4 MG ORAL TABLET 1 po q4hr PRN Nausea ZOFRAN 4 MG ORAL TABLET 028448 ONDANSETRON HCL Inactive HYDROCODONE-ACETAMINOPHEN 5-325 MG ORAL TABLET 2 tabs by mouth three times daily for pain HYDROCODONE-ACETAMINOPHEN 5-325 MG ORAL TABLET 988194 HYDROCODONE-ACETAMINOPHEN Inactive ZOLPIDEM TARTRATE 10 MG ORAL TABLET take at bedtime ZOLPIDEM TARTRATE 10 MG ORAL TABLET 978360 ZOLPIDEM TARTRATE Inactive LISINOPRIL 20 MG ORAL TABLET 1 BID LISINOPRIL 20 MG ORAL TABLET 724383 LISINOPRIL Inactive TRAVATAN Z 0.004 % OPHTHALMIC SOLUTION 1 gtt each eye daily TRAVATAN Z 0.004 % OPHTHALMIC SOLUTION TRAVOPROST Inactive LATUDA 60 MG ORAL TABLET Take one by mouth daily LATUDA 60 MG ORAL TABLET LURASIDONE HCL Inactive FLUVOXAMINE MALEATE 50 MG ORAL TABLET 1 tab by mouth daily 04/01 FLUVOXAMINE MALEATE 50 MG ORAL TABLET 179522 FLUVOXAMINE MALEATE Inactive LEVEMIR FLEXTOUCH 100 UNIT/ML [...] 30G 3 a day TRUEPLUS LANCETS 30G [id number] LANCETS Inactive AMITIZA 24 MCG ORAL CAPSULE [...] noon FLUVOXAMINE MALEATE 100 MG ORAL TABLET 850945 FLUVOXAMINE MALEATE Inactive FLONASE ALLERGY RELIEF 50 MCG/ACT NASAL SUSPENSION One spray each nostril BID x 1 week then daily FLONASE ALLERGY RELIEF 50 MCG/ACT NASAL SUSPENSION 0696744 FLUTICASONE PROPIONATE Inactive IMODIUM A-D 2 MG ORAL TABLET 1 tab QID as needed IMODIUM A-D 2 MG ORAL TABLET 092539 LOPERAMIDE HCL Inactive MYLANTA GAS RELIEF MAXIMUM STR 125 MG ORAL CAPSULE 30cc every 4 hours prn MYLANTA GAS RELIEF MAXIMUM STR 125 MG ORAL CAPSULE SIMETHICONE Inactive TRUEPLUS LANCETS 30G 3x a day TRUEPLUS LANCETS 30G [id number] LANCETS Inactive TRUE METRIX BLOOD GLUCOSE TEST [...] headaches TRAZODONE HCL 100 MG ORAL TABLET 340165 TRAZODONE HCL Inactive TYLENOL 8 HOUR 650 [...] evening TAMSULOSIN HCL 0.4 MG ORAL CAPSULE 144334 TAMSULOSIN HCL Inactive [facility] MEL[facility] 3 MG ORAL TABLET give 1 tab by mouth at HS [facility] MELATONIN 3 MG ORAL TABLET 19901024 MELATONIN Inactive SEROQUEL 100 MG ORAL TABLET 1 tab daily SEROQUEL 100 MG ORAL TABLET 646088 QUETIAPINE FUMARATE Inactive AMARYL 2 MG ORAL TABLET give 2.5 tabs PO daily AMARYL 2 MG ORAL TABLET 340569 GLIMEPIRIDE Inactive SEROQUEL 25 MG ORAL TABLET Take two tabs by mouth in the morning, take 4 tablets at night SEROQUEL 25 MG ORAL TABLET 651766 QUETIAPINE FUMARATE Inactive QUETIAPINE FUMARATE 25 MG ORAL TABLET 2 tabs BID QUETIAPINE FUMARATE 25 MG ORAL TABLET 828126 QUETIAPINE FUMARATE Inactive QUETIAPINE FUMARATE 100 MG ORAL TABLET 1 tab PO at HS QUETIAPINE FUMARATE 100 MG ORAL TABLET 581880 QUETIAPINE FUMARATE Inactive LATUDA 40 MG ORAL TABLET 1.5 tab by mouth in the afternoon 05/23 LATUDA 40 MG ORAL TABLET LURASIDONE HCL Inactive TOPAMAX 25 MG ORAL TABLET 1 tab BID PRN TOPAMAX 25 MG ORAL TABLET 538150 TOPIRAMATE Inactive EFFEXOR XR 150 MG ORAL [...] mouth q12h, for constipation MIRALAX ORAL POWDER 091946 POLYETHYLENE GLYCOL 3350 Inactive CEFDINIR 300 MG ORAL CAPSULE by mouth twice a day CEFDINIR 300 MG ORAL CAPSULE 443311 CEFDINIR Inactive AZITHROMYCIN 500 MG INTRAVENOUS SOLUTION RECONSTITUTED 1 po q day AZITHROMYCIN 500 MG INTRAVENOUS SOLUTION RECONSTITUTED [id number] AZITHROMYCIN Inactive AMOXICILLIN 500 MG ORAL CAPSULE 2 po BID x 10 days AMOXICILLIN 500 MG ORAL CAPSULE 871532 AMOXICILLIN Inactive PENICILLIN V POTASSIUM 500 MG ORAL TABLET 1 pill by mouth three times daily PENICILLIN V POTASSIUM 500 MG ORAL TABLET 306274 PENICILLIN V POTASSIUM Inactive KEFLEX 500 MG ORAL CAPSULE 1 po BID x 7 days KEFLEX 500 MG ORAL CAPSULE 329655 CEPHALEXIN Inactive Immunizations Vaccine Administration Date Value [...] Fluvirin, Fluarix, Agriflu(>=18 yo)) Fluzone (>3 yrs.) [[id number]] Influenza, seasonal, injectable pneumococcal immunization administered Pneumovax [...] ... - Chemistry sodium, serum 135 mmol/L 429-796 1035/08/22 carbon dioxide, venous blood 28.4 mmol/L 21.0-32.0 [...] mg/g {creat} 0-29 cholesterol, serum 263 mg/dL 615-866 7912/08/22 triglyceride, serum, fasting 1312 mg/dL 30-200 HDL [...] ordered Encounters Code Encounter Date Provider Facility CPT-22823 Level 3 Est. Patient 16:25:15 ALUM MIX[facility] C[facility]-68884 [id number] Vst-Est Level IV 15:10:01 ALUM MIXER Mason Loredo MD [facility] CPT-60382 [id number] Vst-Est Level III 11:00:25 CDT Shavonne Feliciano PA-C [facility] CPT-16927 Level 3 Est. Patient 09:12:14 ALUM MIXER Mima Erazo APRN [facility] [place] CPT-60661 Level 3 Est. Patient 16:52:51 CDT Vanessa Hickey MD [facility] CPT-85896 Level 3 Est. Patient 17:40:16 CDT Mima Vadimjerrell [facility] CPT-72999 Level 3 Est. Patient 14:34:52 CDT Vanessa Hickey MD [facility]-03368 Level 3 Est. Patient 16:27:51 CDT Mima Jeffliudmila [facility] CPT-76191 Level 3 Est. Patient 14:39:00 ALUM MIXER Vanessa Hickey MD [facility]-39901 Level 2 Est. Patient 18:43:34 CDT Mima Erazo [facility] CPT-70049 Level 3 Est. Patient 16:22:09 CDT Cherelle Avila [facility] CPT-37085 Level 4 Est. Patient 17:55:14 CDT Mima Erazo [facility] CPT-80784 Level 2 Est. Patient 17:13:21 CDT Alina Castaneda MD [facility] [place]-06021 Level 3 Est. Patient 14:46:15 CDT Vanessa Hickey MD [facility]-61453 Level 3 Est. Patient 09:34:56 CDT Alina Castaneda MD [facility]-77900 Level 3 Est. Patient 21:40:19 CDT Mima Vadimjerrell [facility] CPT-95380 Level 3 Est. Patient 09:26:40 CDT Marvel [address] [facility] [place]-73059 Level 3 Est. Patient 12:36:43 CDT Vanessa Hickey MD [facility]-90431 Level 3 Est. Patient 12:57:49 CDT Vanessa Hickey MD [facility]-27914 Level 3 Est. Patient 00:28:25 CDT Alina Castaneda MD [facility]64320 Level 2 Est. Patient 12:52:14 CDT Alina Castaneda MD [facility]-97777 Level 3 Est. Patient 11:51:18 ALUM MIXER Alina Castaneda MD [facility] [place]-59534 Level 3 Est. Patient 10:09:22 ALUM MIXER Alina Castaneda MD [facility]06620 Level 3 Est. Patient 14:36:26 ALUM MIXER Marvel Charles [facility]-27202 Level 3 Est. Patient 13:34:47 ALUM MIXER Alina Castaneda MD [facility] [place] Level 3 Est. Patient 19:52:08 ALUM MIXER Alina Castaneda MD [facility] [place]07132 Level 3 Est. Patient 10:01:51 [facility]-79937 Level 3 Est. Patient 21:54:06 CDT Vanessa Hickey MD [facility]-57671 Level 3 Est. Patient 08:54:46 CDT Alina Castaneda MD [facility] [place]-37937 Level 3 Est. Patient 09:32:11 [facility]-51582 Level 3 Est. Patient 12:02:49 CDT Alina Castaneda MD [facility] [place]-35906 Level 3 Est. Patient 19:17:33 CDT Alina Castaneda MD [facility] [place]-88157 Level 3 Est. Patient 13:19:10 CDT Marvel Charles [facility]15368 Level 3 Est. Patient 08:20:05 CDT Alina Castaneda MD [facility] [place]07059 Level 3 Est. Patient 15:17:18 CDT Alina Castaneda MD [facility] [place]-79816 Level 3 Est. Patient 14:25:36 ALUM MIXER Marvel Charles [facility]-26545 Level 3 Est. Patient 10:09:15 ALUM MIXER Marvel Charles [facility]-63273 Level 3 Est. Patient 21:28:43 CDT Alina Castaneda MD [facility] [place]-21306 Level 3 Est. Patient 15:20:11 [facility] Est[facility] Patient 19:08:12 CDT Alina Castaneda MD [facility] [place]-18400 Level 3 Est. Patient 15:06:39 [facility]-36477 Level 4 Est. Patient 17:48:15 CDT Alina Castaneda MD [facility] [place]-90259 Level 3 Est. Patient 14:53:49 CDT Alina Castaneda MD [facility] [place]-30678 Level 3 Est. Patient 09:35:16 CDT Alina Castaneda MD [facility] [place]-41955 Level 3 Est. Patient 12:23:22 CDT Alina Castaneda MD [facility] [place]-63505 Level 3 Est. Patient 16:19:15 CDT Alina Castaneda MD [facility] [place]-12226 Level 3 Est. Patient 21:39:56 ALUM MIXER Alina Castaneda MD [facility] [place]-66901 Level 4 Est. Patient 14:12:56 ALUM MIXER Alina Castaneda MD [facility] [place]-79198 Level 2 Est. Patient 15:34:57 ALUM MIXER Alina Castaneda MD [facility] [place]-18371 Level 3 Est. Patient 12:17:04 ALUM MIXER Alina Castaneda MD [facility] [place]11403 Level 3 Est. Patient 09:18:18 ALUM MIXER Marvel Charles [facility]-24861 Level 2 Est. Patient 21:50:24 CDT Alina Castaneda MD [facility] [place]85043 Level 3 Est. Patient 09:17:28 CDT Marvel Charles [facility]-70727 Level 4 Est. Patient 18:54:02 CDT Alina Castaneda MD [facility] [place]16368 Level 3 Est. Patient 10:47:10 CDT Alina Castaneda MD [facility] [place]407 Level 3 Est. Patient 09:22:20 CDT Marvel Charles [facility]-54111 Level 3 Est. Patient 16:39:43 [facility]T [facility]-03337 Level 3 Est. Patient 16:05:16 CDT Alina Castaneda MD [facility] [place]-64396 Level 3 Est. Patient 00:29:15 CDT Alina Castaneda MD [facility] [place]04363 Level 3 Est. Patient 10:49:22 ALUM MIXER Marvel Charles [facility]29602 Level 3 Est. Patient 21:30:19 ALUM MIXER Alina Castaneda MD [facility] [place]602 Level 4 Est. Patient 17:04:11 ALUM MIXER Marvel Charles [facility]39508 Level 3 Est. Patient 15:34:11 ALUM MIXER Marvel MENDOZAP [facility] CPT-09646 Level 2 Est. Patient 12:51:58 ALUM MIXER Alina Castaneda MD PhD [facility] CPT-52770 Level 3 Est. Patient 13:20:01 ALUM MIXER Alina Castaneda MD PhD [facility] CPT-46914 Level 3 Est. Patient 09:23:35 CDT Alina Castaneda MD PhD [facility] Procedures Code Procedure Name Date Entry Date Standard Description CPT-23294 Level 2 Assisted 14:06:10 ALUM MIXER CPT-G0439 [facility] Annual Wellness Exam 15:49:52 ALUM MIXER CPT-61743 Level 3 Assisted 13:20:19 CDT CPT-TCMM Transitional Care Mgmt-Moderate 12:32:19 CDT CPT-85140 Level 2 Assisted 09:01:11 CDT CPT-17182 HGBA1C - LAB USE ONLY 09:30:27 ALUM MIXER CPT-44715 BMP - LAB USE ONLY 09:30:27 ALUM MIXER CPT-93851 Venipuncture Draw Fee 09:30:26 ALUM MIXER CPT-TCMM Transitional Care Mgmt-Moderate 10:25:31 CDT CPT-40432 Bladder Scan 14:34:53 CDT CPT-47585 Bladder Scan 14:39:01 ALUM MIXER CPT-TCMM Transitional Care Mgmt-Moderate 10:30:19 ALUM MIXER CPT-34419 Bladder Scan 12:36:44 CDT CPT-22611 Bladder Scan 21:54:06 CDT CPT-G0008 Administration of Influenza Virus Vaccine 13:05:26 CDT CPT-48155 Fluzone Quadrivalent Intramuscular Suspension 0.5 ML 13: 05:26 CDT CPT-00154 Administration single or combination vaccine inc oral 11 :49:51 CDT CPT-13388 Pneumovax 11:49:51 CDT CPT-97131 Ribs unilateral 2V 12:37:22 ALUM MIXER CPT-29893 Chest 2V Frontal and Lat 17:15:26 CDT CPT-52469 Abx/Therapy Injection 18:54:02 CDT CPT-J0696 Rocephin 1000 mg (Ceftriaxone) 16:00:32 CDT CPT-87110 Chest 2V Frontal and Lat 15:26:45 CDT CPT-70193 Chest 2V Frontal and Lat 10:23:27 CDT CPT-10903 Venipuncture Draw Fee 10:11:00 CDT CPT-32417 Administration single or combination vaccine inc oral 11 :56:38 CDT CPT-72012 Influenza split virus > age 3 11:56:38 CDT CPT-71629 Venipuncture Draw Fee 08:49:54 ALUM MIXER CPT-62426 EKG Trac and Interp 17:54:19 ALUM MIXER
--- OUTSIDE RECORDS SUMMARY | 2018-07-02 14:46 | XMS REPORT | Clinical Summary ---
Author Author Admin, MIKEE Organization [facility] Address Unknown Phone Unavailable Allergies, Adverse Reactions, [...] Lower Urinary Tract Symptoms 788.99 Resolved Shavonne Feliicano PA-C Other symptoms involving urinary system Open 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 Erazo RUSSIAN RUBBER Benign paroxysmal positional vertigo Vertigo, benign paroxysmal position 386.11 Inactive Mima Erazo [employer]USSIAN RUBBER Benign paroxysmal positional vertigo High-risk sexual behavior [...] Alina Castaneda MD PhD URI ICD-465.9 Inactive Ailna Castaneda MD PhD CHEST PAIN ICD-786.50 Inactive [...] by mouth once daily POLYETHYLENE GLYCOL 3350 02012439880 Active Cherelle Souza RN Active CLONAZEPAM 1 MG ORAL TABLET 1 tablet by mouth three times daily CLONAZEPAM 42395148054 Active Cherelle Souza RN Active MIRALAX ORAL POWDER 17g by mouth q12h, for constipation POLYETHYLENE GLYCOL 3350 30655205375 No Longer Active Cherelle Souza RN Active LACTOBACILLUS ORAL TABLET 1 tablet by mouth at bedtime for probiotic LACTOBACILLUS 48483415216 Active Cherelle Souza RN Active D 2000 2000 UNIT ORAL TABLET 1 tablet by mouth twice daily CHOLECALCIFEROL 03571988196 Active Cherelle Souza RN Active DIVALPROEX SODIUM ER 500 MG ORAL TABLET EXTENDED RELEASE 24 HOUR 3 tablets by mouth at bedtime for Mood DIVALPROEX SODIUM 09997220700 Active Cherelle Souza RN Active GLIMEPIRIDE 4 MG ORAL TABLET 1 tablet by mouth once daily GLIMEPIRIDE 85737997127 Active Cherelle Souza RN Active VENLAFAXINE HCL ER 150 MG ORAL CAPSULE EXTENDED RELEASE 24 HOUR 1 tablet by mouth once daily VENLAFAXINE HCL 86763432386 Active Cherelle Souza RN Active RISPERDAL 2 MG ORAL TABLET Take 1 tablet by mouth three times a day RISPERIDONE 39575503369 Active Mya Ledezma MA Active [facility] MILK OF MAGNESIA 400 MG/5ML ORAL SUSPENSION 30ml by mouth bid prn MAGNESIUM HYDROXIDE 65954552430 No Longer Active Mya Ledezma MA Active [facility] MELATONIN 3 MG ORAL TABLET 1 tab nightly MELATONIN 90842115783 No Longer Active Mya Ledezma MA Active AMBIEN 10 MG ORAL TABLET 1 at night as needed for sleep ZOLPIDEM TARTRATE 36367448861 Active Mason Loredo MD Active VERAPAMIL HCL ER 180 MG ORAL TABLET EXTENDED RELEASE 1 pill by mouth twice daily, for migraine prevention VERAPAMIL HCL 86238559521 No Longer Active Mason Loredo MD Active EFFEXOR XR 150 MG ORAL CAPSULE EXTENDED RELEASE 24 HOUR 1 tab daily VENLAFAXINE HCL 39638467393 No Longer Active Mason Loredo MD Active TOPAMAX 25 MG ORAL TABLET 1 tab BID PRN TOPIRAMATE 19439326496 No Longer Active Mason Loredo MD Active LATUDA 40 MG ORAL TABLET 1.5 tab by mouth in the afternoon 05/23 LURASIDONE HCL 84012482540 No Longer Active Mason Loredo MD Active QUETIAPINE FUMARATE 100 MG ORAL TABLET 1 tab PO at HS QUETIAPINE FUMARATE 25078732780 No Longer Active Mason Loredo MD Active QUETIAPINE FUMARATE 25 MG ORAL TABLET 2 tabs BID QUETIAPINE FUMARATE 79352348529 No Longer Active Mason Loredo MD Active ATORVASTATIN CALCIUM 10 MG ORAL TABLET Take 1 tablet by mouth daily. Recheck labs in 3 months ATORVASTATIN CALCIUM 65917084111 Active Mya Ledezma MA Active VERAPAMIL HCL ER 180 MG ORAL TABLET EXTENDED RELEASE 1 tab BID VERAPAMIL HCL 63523711935 Active Shavonne Feliciano PA-C Active SEROQUEL 25 MG ORAL TABLET Take two tabs by mouth in the morning, take 4 tablets at night QUETIAPINE FUMARATE 93642766313 No Longer Active Shavonne Feliciano PA-C Active AMARYL 2 MG ORAL TABLET give 2.5 tabs PO daily GLIMEPIRIDE 21766498264 No Longer Active Shavonne Feliciano PA-C Active FENOFIBRATE 145 MG ORAL TABLET 1 tab PO in the morning FENOFIBRATE 18260626744 Active Shavonne Feliciano PA-C Active SEROQUEL 100 MG ORAL TABLET 1 tab daily QUETIAPINE FUMARATE 45434389549 No Longer Active Shavonne Feliciano PA-C Active [facility] MELATONIN 3 MG ORAL TABLET give 1 tab by mouth at HS MELATONIN 84924460829 No Longer Active Gabrielle Marquez MA Active NOVOLOG FLEXPEN 100 UNIT/ML SUBCUTANEOUS SOLUTION PEN-INJECTOR sliding scale INSULIN ASPART 14162396560 Active Gabrielle Marquez MA Active METFORMIN HCL 1000 MG ORAL TABLET 1 tab by mouth BID METFORMIN HCL 69286502988 Active Gabrielleadrienne Marquez MA Active TAMSULOSIN HCL 0.4 MG ORAL CAPSULE give 2 capsules PO each evening TAMSULOSIN HCL 51606176654 No Longer Active Gabrielleadrienne Marquez MA Active VITAMIN D 2000 UNIT ORAL CAPSULE Take one by mouth daily CHOLECALCIFEROL 92460965421 No Longer Active Gabrielleadrienne Marquez MA Active LEVEMIR 100 UNIT/ML SUBCUTANEOUS SOLUTION 10 u at bedtime INSULIN DETEMIR 08987754487 Active Gabrielle Littleananda NOEL Active TAMSULOSIN HCL 0.4 MG ORAL CAPSULE 2 every night for urine flow TAMSULOSIN HCL 38962424457 Active Gabrielle Sidneyananda NOEL Active ALIGN 4 MG ORAL CAPSULE 1 tab at hs PROBIOTIC PRODUCT 73613071516 No Longer Active Gabrielle Marquez MA Active OCEAN NASAL SPRAY SOLUTION 2 sprays in both nostrils every 8 hours as needed for dry mucous membranes SALINE SOLN 55268953228 Active Mason Loredo MD Active BETHANECHOL CHLORIDE 25 MG ORAL TABLET Take 1 tablet mouth four times a day BETHANECHOL CHLORIDE 75363474709 Active Mason Loredo MD Active [facility] LUBRICANT EYE DROPS 0.4-0.3 % OPHTHALMIC SOLUTION POLYETHYL GLYCOL-PROPYL GLYCOL 45618823094 No Longer Active Mason Loredo MD Active TYLENOL 8 HOUR 650 MG ORAL TABLET EXTENDED RELEASE 1 tab QID prn ACETAMINOPHEN 54712526015 No Longer Active Mason Loredo MD Active TIMOPTIC OCUDOSE 0.5 % OPHTHALMIC SOLUTION instill one drop into both eyes q12H TIMOLOL MALEATE 54004864173 Active Mason Loredo MD Active TRAZODONE HCL 100 MG ORAL TABLET 1 every night to prevent headaches TRAZODONE HCL 77291765437 No Longer Active Mason Loredo MD Active TRAVATAN Z 0.004 % OPHTHALMIC SOLUTION 1 drop each eye daily 2017 TRAVOPROST 28972339488 No Longer Active Mason Loredo MD Active LATUDA 60 MG ORAL TABLET 1 tab daily LURASIDONE HCL 01985687416 No Longer Active Mason Loredo MD Active MORPHINE SULFATE ER 30 MG ORAL TABLET EXTENDED RELEASE Take one capsule BID MORPHINE SULFATE 83874681372 No Longer Active Mason Loredo MD Active TRUE METRIX BLOOD GLUCOSE TEST IN VITRO STRIP Check blood sugars 3x/day. 2015 GLUCOSE BLOOD 67542309695 No Longer Active Mason Loredo MD Active TRUEPLUS LANCETS 30G 3x a day LANCETS 65523354155 No Longer Active Mason Loredo MD Active MYLANTA GAS RELIEF MAXIMUM STR 125 MG ORAL CAPSULE 30cc every 4 hours prn SIMETHICONE 31481013142 No Longer Active Mason Loredo MD Active IMODIUM A-D 2 MG ORAL TABLET 1 tab QID as needed LOPERAMIDE HCL 22041160425 No Longer Active Mason Loredo MD Active FLONASE ALLERGY RELIEF 50 MCG/ACT NASAL SUSPENSION One spray each nostril BID x 1 week then daily FLUTICASONE PROPIONATE 21141856087 No Longer Active Mason Loredo MD Active FLUVOXAMINE MALEATE 100 MG ORAL TABLET take one tab every AM et HS, and take 1 /2 tab at noon FLUVOXAMINE MALEATE 83293554190 No Longer Active Mason Loredo MD Active BD PEN NEEDLE MINI U/F 31G X 5 MM 4 a day INSULIN PEN NEEDLE 24235177586 No Longer Active Mason Loredo MD Active AMITIZA 24 MCG ORAL CAPSULE Take one capsule BID for constipation LUBIPROSTONE 84218659573 No Longer Active Mason Loredo MD Active TRUEPLUS LANCETS 30G 3 a day LANCETS 44993209699 No Longer Active Mason Loredo MD Active CORICIDIN HBP CONGESTION/COUGH 10-200 MG ORAL CAPSULE Take as directed on box as needed for cold/flu symptoms DEXTROMETHORPHAN- GUAIFENESIN 30338745014 No Longer Active Mason Loredo MD Active OMEGA-3 300 MG ORAL CAPSULE 4 caps by mouth daily OMEGA-3 FATTY ACIDS 50662299979 No Longer Active Mason Loredo MD Active HUMALOG KWIKPEN 100 UNIT/ML SUBCUTANEOUS SOLUTION PEN-INJECTOR sliding scale if needed INSULIN LISPRO (HUMAN) 49902373095 No Longer Active Mason Loredo MD Active TRUETEST TEST IN VITRO STRIP check blood sugars 3x/day GLUCOSE BLOOD 38782848634 No Longer Active Mason Loredo MD Active ALFUZOSIN HCL ER 10 MG ORAL TABLET EXTENDED RELEASE 24 HOUR 1 tablet daily ALFUZOSIN HCL 16072090449 No Longer Active Mason Loredo MD Active BD INSULIN SYRINGE 28G X 1/2" 1 ML 1 four times per day INSULIN SYRINGE-NEEDLE U-100 63160624536 No Longer Active Mason Loredo MD Active LEVEMIR FLEXTOUCH 100 UNIT/ML SUBCUTANEOUS SOLUTION PEN-INJECTOR 60 units SQ each evening, for diabetes INSULIN DETEMIR 14032166797 No Longer Active Mason Loredo MD Active LACTULOSE 20 GM/30ML ORAL SOLUTION give 30 Ml PO BID PRN LACTULOSE 40578695884 Active Mason Loredo MD Active COLACE 100 MG ORAL CAPSULE 1 tab BID PRN DOCUSATE SODIUM 77270506196 Active Mason Loredo MD Active LATANOPROST 0.005 % OPHTHALMIC SOLUTION instill 1 drop in both eyes at bed time LATANOPROST 44461660336 Active Mason Loredo MD Active IBUPROFEN 400 MG ORAL TABLET 1 tab Q6H PRN IBUPROFEN 96403381907 Active Mason Loredo MD Active FLUVOXAMINE MALEATE 50 MG ORAL TABLET 1 tab by mouth daily 04/01 FLUVOXAMINE MALEATE 21801922186 No Longer Active Mima Erazo APRN Active TRUE METRIX METER w/Device KIT Check blood sugars 3x/day BLOOD GLUCOSE MONITORING SUPPL 78685154188 Active Marvel Mackenzieglari MANAGER PROGRAMMING Active LATUDA 60 MG ORAL TABLET Take one by mouth daily LURASIDONE HCL 37657562960 No Longer Active Mima Erazo APRN Active TRAVATAN Z 0.004 % OPHTHALMIC SOLUTION 1 gtt each eye daily TRAVOPROST 01229235199 No Longer Active Mason Loredo MD Active LISINOPRIL 20 MG ORAL TABLET 1 BID LISINOPRIL 59961027878 No Longer Active Mason Loredo MD Active ZOLPIDEM TARTRATE 10 MG ORAL TABLET take at bedtime ZOLPIDEM TARTRATE 63533352962 No Longer Active Mason Loredo MD Active HYDROCODONE-ACETAMINOPHEN 5-325 MG ORAL TABLET 2 tabs by mouth three times daily for pain HYDROCODONE-ACETAMINOPHEN 71893150047 No Longer Active Mason Loredo MD Active ZOFRAN 4 MG ORAL TABLET 1 po q4hr PRN Nausea ONDANSETRON HCL 22631145274 No Longer Active Mason Loredo MD Active LOMOTIL 2.5-0.025 MG ORAL TABLET take 1-2 tabs PO after each stool, no more than 8 in 24 hours DIPHENOXYLATE-ATROPINE 48669156161 No Longer Active Mason Loredo MD Active COLACE 100 MG ORAL CAPSULE 1 pill by mouth twice daily, for constipation 2014 DOCUSATE SODIUM 91230129593 No Longer Active Mima Yokum RUSSIAN RUBBER Active TOLTERODINE TARTRATE 2 MG ORAL TABLET 1 pill twice daily, for bladder TOLTERODINE TARTRATE 18020771720 No Longer Active Vanessa Hickey MD Active AMITIZA 24 MCG ORAL CAPSULE Take one capsule BID for constipation. LUBIPROSTONE 74359198183 No Longer Active Vanessa Hickey MD Active METOPROLOL SUCCINATE ER 100 MG ORAL TABLET EXTENDED RELEASE 24 HOUR 1 by mouth daily for blood pressure METOPROLOL SUCCINATE 77210111894 No Longer Active Grace Azam RMA Active METFORMIN HCL ER 500 MG ORAL TABLET EXTENDED RELEASE 24 HOUR Take three tablets by mouth everyday METFORMIN HCL 79271357246 No Longer Active Grace Azam RMA Active LOVAZA 1 GM ORAL CAPSULE 4 daily (for triglycerides) OUNSE-1-OGUR ETHYL ESTERS 21662705041 No Longer Active Grace Azam RMA Active TRAZODONE HCL 100 MG ORAL TABLET 1 tab by mouth for sleep TRAZODONE HCL 51321277932 No Longer Active Grace Azam RMA Active NOVOFINE 32G X 6 MM use one four times per day INSULIN PEN NEEDLE 09483427475 No Longer Active Grace Azam RMA Active BACTROBAN 2 % EXTERNAL CREAM Apply to affected area BID for up to 10 days MUPIROCIN CALCIUM 59870440787 No Longer Active Grace Azam RMA Active KEFLEX 500 MG ORAL CAPSULE 1 po BID x 7 days CEPHALEXIN 47425483545 No Longer Active Cherelle Avila APRN Active FLUVOXAMINE MALEATE 100 MG ORAL TABLET Take one (1) tablet by mouth am, 1/2 at noon FLUVOXAMINE MALEATE 57933127994 No Longer Active Mima Erazo APRN Active FLUVOXAMINE MALEATE 100 MG ORAL TABLET Take 1/2 tab at noon 03/04 FLUVOXAMINE MALEATE 88630608788 No Longer Active Cherelle Avila APRN Active ACCU-CHEK ROSA DEVICE Use device to check blood sugars BLOOD GLUCOSE MONITORING SUPPL 26583910092 No Longer Active Marvel MARROQUIN Active ACCU-CHEK ROSA IN VITRO STRIP use strips with device to check blood sugars 3 times daily GLUCOSE BLOOD 67698723610 No Longer Active Brooksjohn MARROQUIN Active CYCLOBENZAPRINE HCL 10 MG ORAL TABLET 1 tablet by mouth three times daily, scheduled CYCLOBENZAPRINE HCL 85311938526 No Longer Active Alina Castaneda MD PhD Active HUMALOG 100 UNIT/ML SUBCUTANEOUS SOLUTION Take 20 units with breakfast, 10u with lunch and suppetr. INSULIN LISPRO (HUMAN) 69733490692 No Longer Active Alina Castaneda MD PhD Active TRUETEST TEST IN VITRO STRIP check sugars 4x/day GLUCOSE BLOOD 05402346221 No Longer Active Alina Castaneda MD PhD Active MORPHINE SULFATE 30 MG ORAL TABLET 1 pill by mouth twice daily, for pain 2013 MORPHINE SULFATE 65425140038 No Longer Active Mason Loredo MD Active ACYCLOVIR 400 MG ORAL TABLET 1 pill three times daily x 5 days, for cold sore outbreak ACYCLOVIR 03243712222 No Longer Active Alina Castaneda MD PhD Active PENICILLIN V POTASSIUM 500 MG ORAL TABLET 1 pill by mouth three times daily PENICILLIN V POTASSIUM 30035460335 No Longer Active Alina Castaneda MD PhD Active UROXATRAL 10 MG ORAL TABLET EXTENDED RELEASE 24 HOUR Take 1 tablet by mouth daily ALFUZOSIN HCL 08729853260 No Longer Active Alina Castaneda MD PhD Active THIOTHIXENE 5 MG ORAL CAPSULE by mouth twice a day THIOTHIXENE 26476104043 No Longer Active Alina Castaneda MD PhD Active ZYPREXA 7.5 MG ORAL TABLET 1 at HS OLANZAPINE 10500358973 No Longer Active Alina Castaneda MD PhD Active DETROL LA 4 MG ORAL CAPSULE EXTENDED RELEASE 24 HOUR Take 1 tablet by mouth daily TOLTERODINE TARTRATE 65128933371 No Longer Active Alina Castaneda MD PhD Active TERESE CONTOUR TEST IN VITRO STRIP monitor blood sugars 3x/day GLUCOSE BLOOD 36954088651 No Longer Active Alina Castaneda MD PhD Active EQL TRUETEST TEST IN VITRO STRIP Test blood sugar TID GLUCOSE BLOOD 67833339445 No Longer Active Alina Castaneda MD PhD Active FLUTICASONE PROPIONATE 50 MCG/ACT NASAL SUSPENSION 2 sprays each nostril qDay x 30 days FLUTICASONE PROPIONATE 73514366940 No Longer Active Alina Castaneda MD PhD Active IBUPROFEN 200 MG ORAL TABLET 1 Q 6 hr. PRN IBUPROFEN 42702128926 No Longer Active Alina Castaneda MD PhD Active NIACIN ER 500 MG ORAL TABLET EXTENDED RELEASE 4 qHS (for triglycerides) 01/13 NIACIN 83622937052 No Longer Active Alina Castaneda MD PhD Active SAPHRIS 5 MG SUBLINGUAL TABLET SUBLINGUAL by mouth twice a day ASENAPINE MALEATE 86715254918 No Longer Active Maljohn Ziglari MANAGER PROGRAMMING Active ACETAMINOPHEN 500 MG ORAL TABLET 2 Q 6 hr. PRN ACETAMINOPHEN 06712594595 No Longer Active Maliheh Ziglari MANAGER PROGRAMMING Active ORPHENADRINE CITRATE ER 100 MG ORAL TABLET EXTENDED RELEASE 12 HOUR 1 every 12 hr. as needed ORPHENADRINE CITRATE 54557095622 No Longer Active Alina Castaneda MD PhD Active NIACIN ER 500 MG ORAL TABLET EXTENDED RELEASE 2 qHS NIACIN 21887085013 No Longer Active Alina Castaneda MD PhD Active AMOXICILLIN 500 MG ORAL CAPSULE 2 po BID x 10 days AMOXICILLIN 01517260849 No Longer Active Alina Castaneda MD PhD Active HYDROCODONE-ACETAMINOPHEN 7.5-325 MG ORAL TABLET 1 four times a day as needed for pain HYDROCODONE-ACETAMINOPHEN 45707423716 No Longer Active Alina Castaneda MD PhD Active DOXEPIN HCL 10 MG ORAL CAPSULE Take 1 tablet by mouth daily DOXEPIN HCL 94686376851 No Longer Active Salina Han [facility] Active NAVANE 10 MG CAPS 1/2 tablet twice a day THIOTHIXENE No Longer Active Salina Han [facility] Active CYCLOBENZAPRINE HCL 10 MG ORAL TABLET 1/2 tablet by mouth every 8 hours as needed for muscle spasms CYCLOBENZAPRINE HCL 11815253960 No Longer Active Alina Castaneda MD PhD Active BACTROBAN 2 % EXTERNAL CREAM apply to ear and nose twice daily MUPIROCIN CALCIUM 32061503810 No Longer Active Alina Castaneda MD PhD Active HYDROCODONE-ACETAMINOPHEN 5-325 MG ORAL TABLET take one tablet by mouth every four hours as needed for pain HYDROCODONE-ACETAMINOPHEN 22265822260 No Longer Active Alina Castaneda MD PhD Active ZYPREXA 5 MG ORAL TABLET take one tablet by mouth every evening OLANZAPINE 38016297831 No Longer Active Alina Castaneda MD PhD Active ALBUTEROL SULFATE (2.5 MG/3ML) 0.083% INHALATION NEBULIZATION SOLUTION one vial per nebulizer TID and PRN cough/soa ALBUTEROL SULFATE 83284929321 No Longer Active Alina Castaneda MD PhD Active GUAIFENESIN ER 600 MG ORAL TABLET EXTENDED RELEASE 12 HOUR 1 tablet by mouth twice daily if needed for cough GUAIFENESIN 67257862377 No Longer Active Marvel MENDOZAP Active AZITHROMYCIN 500 MG INTRAVENOUS SOLUTION RECONSTITUTED 1 po q day AZITHROMYCIN 12815215010 No Longer Active Alina Castaneda MD PhD Active PROMETHAZINE-CODEINE 6.25-10 MG/5ML ORAL SYRUP 1 tsp po q 6 hours prn cough PROMETHAZINE-CODEINE 22488193934 No Longer Active Alina Castaneda MD PhD Active CEFDINIR 300 MG ORAL CAPSULE by mouth twice a day CEFDINIR 84311326763 No Longer Active Alina Castaneda MD PhD Active METFORMIN HCL ER 500 MG ORAL TABLET EXTENDED RELEASE 24 HOUR Take 3 tablets by mouth everyday METFORMIN HCL 10061531143 No Longer Active Alina Castaneda MD PhD Active LEVEMIR 100 UNIT/ML SUBCUTANEOUS SOLUTION 90 units SQ qHS INSULIN DETEMIR 73914370564 No Longer Active Marvel MARROQUIN Active TOPROL XL 100 MG ORAL TABLET EXTENDED RELEASE 24 HOUR 1 @ HS METOPROLOL SUCCINATE 59954633379 No Longer Active Marvel MARROQUIN Active ALLOPURINOL 300 MG ORAL TABLET Take one by mouth daily ALLOPURINOL 62312996705 Active Mima Erazo RUSSIAN RUBBER Active ZYPREXA 10 MG ORAL TABLET Take one by mouth daily OLANZAPINE 88577376734 No Longer Active Alina Castaneda MD PhD Active NOVOLOG 100 UNIT/ML SUBCUTANEOUS SOLUTION 40 units with every meal INSULIN ASPART 70327283538 No Longer Active Alina Castaneda MD PhD Active VERAPAMIL HCL ER 120 MG ORAL TABLET EXTENDED RELEASE 1 qPM 09/08 VERAPAMIL HCL 83035902415 No Longer Active Salina ROJAS Active ZYPREXA 15 MG ORAL TABLET Take 1 tablet by mouth daily OLANZAPINE 88329541488 No Longer Active Marvel MARROQUIN Active ALBUTEROL SULFATE (2.5 MG/3ML) 0.083% INHALATION NEBULIZATION SOLUTION 1 neb tid and prn cough ALBUTEROL SULFATE 07433697055 No Longer Active Alina Castaneda MD PhD Active LANTUS 100 UNIT/ML SUBCUTANEOUS SOLUTION 60 units sq q hs INSULIN GLARGINE 86570046629 No Longer Active CRYSTAL Suarez Active ALBUTEROL SULFATE (2.5 MG/3ML) 0.083% INHALATION NEBULIZATION SOLUTION 1 neb tid and prn cough ALBUTEROL SULFATE (2.5 MG/3ML) 0.083% INHALATION NEBULIZATION SOLUTION 280609 ALBUTEROL SULFATE Inactive ZYPREXA 15 MG ORAL TABLET Take 1 tablet by mouth daily ZYPREXA 15 MG ORAL TABLET 346717 OLANZAPINE Inactive VERAPAMIL HCL ER 120 MG ORAL TABLET EXTENDED RELEASE 1 qPM 09/08 VERAPAMIL HCL ER 120 MG ORAL TABLET EXTENDED RELEASE VERAPAMIL HCL Inactive ZYPREXA 10 MG ORAL TABLET Take one by mouth daily ZYPREXA 10 MG ORAL TABLET 994135 OLANZAPINE Inactive TOPROL XL 100 MG ORAL TABLET EXTENDED RELEASE 24 HOUR 1 @ HS TOPROL XL 100 MG ORAL TABLET EXTENDED RELEASE 24 HOUR METOPROLOL SUCCINATE Inactive LEVEMIR 100 UNIT/ML SUBCUTANEOUS SOLUTION 90 units SQ qHS LEVEMIR 100 UNIT/ML SUBCUTANEOUS SOLUTION INSULIN DETEMIR Inactive PROMETHAZINE-CODEINE 6.25-10 MG/5ML ORAL SYRUP 1 tsp po q 6 hours prn cough PROMETHAZINE-CODEINE 6.25-10 MG/5ML ORAL SYRUP 822466 PROMETHAZINE-CODEINE Inactive GUAIFENESIN ER 600 MG ORAL TABLET EXTENDED RELEASE 12 HOUR 1 tablet by mouth twice daily if needed for cough GUAIFENESIN ER 600 MG ORAL TABLET EXTENDED RELEASE 12 HOUR GUAIFENESIN Inactive ALBUTEROL SULFATE (2.5 MG/3ML) 0.083% INHALATION NEBULIZATION SOLUTION one vial per nebulizer TID and PRN cough/soa ALBUTEROL SULFATE (2.5 MG/3ML) 0.083% INHALATION NEBULIZATION SOLUTION 196343 ALBUTEROL SULFATE Inactive ZYPREXA 5 MG ORAL TABLET take one tablet by mouth every evening ZYPREXA 5 MG ORAL TABLET 906037 OLANZAPINE Inactive HYDROCODONE-ACETAMINOPHEN 5-325 MG ORAL TABLET take one tablet by mouth every four hours as needed for pain HYDROCODONE-ACETAMINOPHEN 5-325 MG ORAL TABLET 662993 HYDROCODONE-ACETAMINOPHEN Inactive BACTROBAN 2 % EXTERNAL CREAM apply to ear and nose twice daily BACTROBAN 2 % EXTERNAL CREAM 413405 MUPIROCIN CALCIUM Inactive CYCLOBENZAPRINE HCL 10 MG ORAL TABLET 1/2 tablet by mouth every 8 hours as needed for muscle spasms CYCLOBENZAPRINE HCL 10 MG ORAL TABLET 951598 CYCLOBENZAPRINE HCL Inactive NAVANE 10 MG CAPS 1/2 tablet twice a day NAVANE 10 MG CAPS THIOTHIXENE Inactive DOXEPIN HCL 10 MG ORAL CAPSULE Take 1 tablet by mouth daily DOXEPIN HCL 10 MG ORAL CAPSULE 2049413 DOXEPIN HCL Inactive HYDROCODONE-ACETAMINOPHEN 7.5-325 MG ORAL TABLET 1 four times a day as needed for pain HYDROCODONE-ACETAMINOPHEN 7.5-325 MG ORAL TABLET 150673 HYDROCODONE-ACETAMINOPHEN Inactive NIACIN ER 500 MG ORAL [...] hr. PRN ACETAMINOPHEN 500 MG ORAL TABLET 237608 ACETAMINOPHEN Inactive SAPHRIS 5 MG SUBLINGUAL TABLET SUBLINGUAL by mouth twice a day SAPHRIS 5 MG SUBLINGUAL TABLET SUBLINGUAL ASENAPINE MALEATE Inactive NIACIN ER 500 MG ORAL TABLET EXTENDED RELEASE 4 qHS (for triglycerides) 01/13 NIACIN ER 500 MG ORAL TABLET EXTENDED RELEASE NIACIN Inactive IBUPROFEN 200 MG ORAL TABLET 1 Q 6 hr. PRN IBUPROFEN 200 MG ORAL TABLET 344279 IBUPROFEN Inactive FLUTICASONE PROPIONATE 50 MCG/ACT NASAL SUSPENSION 2 sprays each nostril qDay x 30 days FLUTICASONE PROPIONATE 50 MCG/ACT NASAL SUSPENSION 0298968 FLUTICASONE PROPIONATE Inactive EQL TRUETEST TEST IN [...] at HS ZYPREXA 7.5 MG ORAL TABLET 644201 OLANZAPINE Inactive THIOTHIXENE 5 MG ORAL CAPSULE by mouth twice a day THIOTHIXENE 5 MG ORAL CAPSULE 666424 THIOTHIXENE Inactive UROXATRAL 10 MG ORAL TABLET EXTENDED RELEASE 24 HOUR Take 1 tablet by mouth daily UROXATRAL 10 MG ORAL TABLET EXTENDED RELEASE 24 HOUR ALFUZOSIN HCL Inactive ACYCLOVIR 400 MG ORAL TABLET 1 pill three times daily x 5 days, for cold sore outbreak ACYCLOVIR 400 MG ORAL TABLET 371088 ACYCLOVIR Inactive TRUETEST TEST IN VITRO STRIP check sugars 4x/day TRUETEST TEST IN VITRO STRIP GLUCOSE BLOOD Inactive HUMALOG 100 UNIT/ML SUBCUTANEOUS SOLUTION Take 20 units with breakfast, 10u with lunch and suppetr. HUMALOG 100 UNIT/ML SUBCUTANEOUS SOLUTION INSULIN LISPRO (HUMAN) Inactive CYCLOBENZAPRINE HCL 10 MG ORAL TABLET 1 tablet by mouth three times daily, scheduled CYCLOBENZAPRINE HCL 10 MG ORAL TABLET 939808 CYCLOBENZAPRINE HCL Inactive ACCU-CHEK ROSA IN VITRO STRIP use strips with device to check blood sugars 3 times daily ACCU-CHEK ROSA IN VITRO STRIP GLUCOSE BLOOD Inactive ACCU-CHEK ROSA DEVICE Use device to check blood sugars ACCU-CHEK ROSA DEVICE BLOOD GLUCOSE MONITORING SUPPL Inactive FLUVOXAMINE MALEATE 100 MG ORAL TABLET Take 1/2 tab at noon 03/04 FLUVOXAMINE MALEATE 100 MG ORAL TABLET 990909 FLUVOXAMINE MALEATE Inactive FLUVOXAMINE MALEATE 100 MG ORAL TABLET Take one (1) tablet by mouth am, 1/2 at noon FLUVOXAMINE MALEATE 100 MG ORAL TABLET 995275 FLUVOXAMINE MALEATE Inactive BACTROBAN 2 % EXTERNAL CREAM Apply to affected area BID for up to 10 days BACTROBAN 2 % EXTERNAL CREAM 773394 MUPIROCIN CALCIUM Inactive NOVOFINE 32G X 6 MM use one four times per day NOVOFINE 32G X 6 MM INSULIN PEN NEEDLE Inactive TRAZODONE HCL 100 MG ORAL TABLET 1 tab by mouth for sleep TRAZODONE HCL 100 MG ORAL TABLET 937494 TRAZODONE HCL Inactive LOVAZA 1 GM ORAL CAPSULE 4 daily (for triglycerides) LOVAZA 1 GM ORAL CAPSULE 948692 [id number]-[id number] ETHYL ESTERS Inactive METFORMIN HCL ER 500 [...] bladder TOLTERODINE TARTRATE 2 MG ORAL TABLET 999411 TOLTERODINE TARTRATE Inactive COLACE 100 MG ORAL CAPSULE 1 pill by mouth twice daily, for constipation 2014 COLACE 100 MG ORAL CAPSULE 1288522 DOCUSATE SODIUM Inactive LOMOTIL 2.5-0.025 MG ORAL TABLET take 1-2 tabs PO after each stool, no more than 8 in 24 hours LOMOTIL 2.5-0.025 MG ORAL TABLET 3303086 DIPHENOXYLATE-ATROPINE Inactive ZOFRAN 4 MG ORAL TABLET 1 po q4hr PRN Nausea ZOFRAN 4 MG ORAL TABLET 618492 ONDANSETRON HCL Inactive HYDROCODONE-ACETAMINOPHEN 5-325 MG ORAL TABLET 2 tabs by mouth three times daily for pain HYDROCODONE-ACETAMINOPHEN 5-325 MG ORAL TABLET 694487 HYDROCODONE-ACETAMINOPHEN Inactive ZOLPIDEM TARTRATE 10 MG ORAL TABLET take at bedtime ZOLPIDEM TARTRATE 10 MG ORAL TABLET 681696 ZOLPIDEM TARTRATE Inactive LISINOPRIL 20 MG ORAL TABLET 1 BID LISINOPRIL 20 MG ORAL TABLET 293957 LISINOPRIL Inactive TRAVATAN Z 0.004 % OPHTHALMIC SOLUTION 1 gtt each eye daily TRAVATAN Z 0.004 % OPHTHALMIC SOLUTION TRAVOPROST Inactive LATUDA 60 MG ORAL TABLET Take one by mouth daily LATUDA 60 MG ORAL TABLET LURASIDONE HCL Inactive FLUVOXAMINE MALEATE 50 MG ORAL TABLET 1 tab by mouth daily 04/01 FLUVOXAMINE MALEATE 50 MG ORAL TABLET 192764 FLUVOXAMINE MALEATE Inactive LEVEMIR FLEXTOUCH 100 UNIT/ML [...] 30G 3 a day TRUEPLUS LANCETS 30G [id number] LANCETS Inactive AMITIZA 24 MCG ORAL CAPSULE [...] noon FLUVOXAMINE MALEATE 100 MG ORAL TABLET 540908 FLUVOXAMINE MALEATE Inactive FLONASE ALLERGY RELIEF 50 MCG/ACT NASAL SUSPENSION One spray each nostril BID x 1 week then daily FLONASE ALLERGY RELIEF 50 MCG/ACT NASAL SUSPENSION 3462555 FLUTICASONE PROPIONATE Inactive IMODIUM A-D 2 MG ORAL TABLET 1 tab QID as needed IMODIUM A-D 2 MG ORAL TABLET 595084 LOPERAMIDE HCL Inactive MYLANTA GAS RELIEF MAXIMUM STR 125 MG ORAL CAPSULE 30cc every 4 hours prn MYLANTA GAS RELIEF MAXIMUM STR 125 MG ORAL CAPSULE SIMETHICONE Inactive TRUEPLUS LANCETS 30G 3x a day TRUEPLUS LANCETS 30G [id number] LANCETS Inactive TRUE METRIX BLOOD GLUCOSE TEST [...] headaches TRAZODONE HCL 100 MG ORAL TABLET 500182 TRAZODONE HCL Inactive TYLENOL 8 HOUR 650 [...] evening TAMSULOSIN HCL 0.4 MG ORAL CAPSULE 298574 TAMSULOSIN HCL Inactive [facility] MELATONIN 3 MG ORAL TABLET give 1 tab by mouth at HS [facility] MELATONIN 3 MG ORAL TABLET 19901024 MELATONIN Inactive SEROQUEL 100 MG ORAL TABLET 1 tab daily SEROQUEL 100 MG ORAL TABLET 927517 QUETIAPINE FUMARATE Inactive AMARYL 2 MG ORAL TABLET give 2.5 tabs PO daily AMARYL 2 MG ORAL TABLET 108519 GLIMEPIRIDE Inactive SEROQUEL 25 MG ORAL TABLET Take two tabs by mouth in the morning, take 4 tablets at night SEROQUEL 25 MG ORAL TABLET 850095 QUETIAPINE FUMARATE Inactive QUETIAPINE FUMARATE 25 MG ORAL TABLET 2 tabs BID QUETIAPINE FUMARATE 25 MG ORAL TABLET 591099 QUETIAPINE FUMARATE Inactive QUETIAPINE FUMARATE 100 MG ORAL TABLET 1 tab PO at HS QUETIAPINE FUMARATE 100 MG ORAL TABLET 028474 QUETIAPINE FUMARATE Inactive LATUDA 40 MG ORAL TABLET 1.5 tab by mouth in the afternoon 05/23 LATUDA 40 MG ORAL TABLET LURASIDONE HCL Inactive TOPAMAX 25 MG ORAL TABLET 1 tab BID PRN TOPAMAX 25 MG ORAL TABLET 859592 TOPIRAMATE Inactive EFFEXOR XR 150 MG ORAL [...] mouth q12h, for constipation MIRALAX ORAL POWDER 705986 POLYETHYLENE GLYCOL 3350 Inactive CEFDINIR 300 MG ORAL CAPSULE by mouth twice a day CEFDINIR 300 MG ORAL CAPSULE 765147 CEFDINIR Inactive AZITHROMYCIN 500 MG INTRAVENOUS SOLUTION RECONSTITUTED 1 po q day AZITHROMYCIN 500 MG INTRAVENOUS SOLUTION RECONSTITUTED [id number] AZITHROMYCIN Inactive AMOXICILLIN 500 MG ORAL CAPSULE 2 po BID x 10 days AMOXICILLIN 500 MG ORAL CAPSULE 407403 AMOXICILLIN Inactive PENICILLIN V POTASSIUM 500 MG ORAL TABLET 1 pill by mouth three times daily PENICILLIN V POTASSIUM 500 MG ORAL TABLET 370626 PENICILLIN V POTASSIUM Inactive KEFLEX 500 MG ORAL CAPSULE 1 po BID x 7 days KEFLEX 500 MG ORAL CAPSULE 228362 CEPHALEXIN Inactive Immunizations Vaccine Administration Date Value [...] Fluvirin, Fluarix, Agriflu(>=18 yo)) Fluzone (>3 yrs.) [[id number]] Influenza, seasonal, injectable pneumococcal immunization administered Pneumovax [...] ... - Chemistry sodium, serum 135 mmol/L 298-905 7893/08/22 carbon dioxide, venous blood 28.4 mmol/L 21.0-32.0 [...] mg/g {creat} 0-29 cholesterol, serum 263 mg/dL 113-758 5513/08/22 triglyceride, serum, fasting 1312 mg/dL 30-200 HDL [...] mg/L 0-19 Office Visit: TCM from senior care - Lab PSA (prostate specific antigent), recommendation and action PSA ordered Encounters Code Encounter Date Provider Facility CPT-44076 Level 3 Est. Patient 16:25:15 LOOPER OPERATOR [facility] CPT-06467 [id number] Vst-Est Level IV 15:10:01 LOOPER OPERATOR Mason Loredo MD [facility] CPT-51190 [id number] Vst-Est Level III 11:00:25 CDT Shavonne Feliciano PA-C [facility] CPT-56004 Level 3 Est. Patient 09:12:14 LOOPER OPERATOR Mima Erazo APRN [facility] [place] CPT-80249 Level 3 Est. Patient 16:52:51 CDT Vanessa Hickey MD [facility] CPT-35401 Level 3 Est. Patient 17:40:16 CDT Mima Vadimjerrell [facility] CPT-02110 Level 3 Est. Patient 14:34:52 CDT Vanessa Hickey MD [facility]-16205 Level 3 Est. Patient 16:27:51 CDT Mima Jeffliudmila [facility] CPT-95734 Level 3 Est. Patient 14:39:00 LOOPER OPERATOR Vanessa Hickey MD [facility]-95273 Level 2 Est. Patient 18:43:34 CDT Mima Erazo [facility] CPT-22167 Level 3 Est. Patient 16:22:09 CDT Cherelle Avila [facility] CPT-99110 Level 4 Est. Patient 17:55:14 CDT Mima Erazo [facility] CPT-17257 Level 2 Est. Patient 17:13:21 CDT Alina Castaneda MD [facility]-77457 Level 3 Est. Patient 14:46:15 CDT Vanessa Hickey MD [facility]-90583 Level 3 Est. Patient 09:34:56 CDT Alina Castaneda MD [facility]-11636 Level 3 Est. Patient 21:40:19 CDT Mima Vadimjerrell [facility] CPT-53350 Level 3 Est. Patient 09:26:40 CDT Marvel [facility]-25158 Level 3 Est. Patient 12:36:43 CDT Vanessa Hickey MD [facility]-45452 Level 3 Est. Patient 12:57:49 CDT Vanessa Hickey MD [facility]-51043 Level 3 Est. Patient 00:28:25 CDT Alina Castaneda MD [facility]91634 Level 2 Est. Patient 12:52:14 CDT Alina Castaneda MD [facility]-53138 Level 3 Est. Patient 11:51:18 LOOPER OPERATOR Alina Castaneda MD [facility]-00300 Level 3 Est. Patient 10:09:22 LOOPER OPERATOR Alina Castaneda MD [facility]62748 Level 3 Est. Patient 14:36:26 LOOPER OPERATOR Marvel [facility]-53449 Level 3 Est. Patient 13:34:47 LOOPER OPERATOR Alina Castaneda MD [facility]37770 Level 3 Est. Patient 19:52:08 LOOPER OPERATOR Alina Castaneda MD [facility]56781 Level 3 Est. Patient 10:01:51 LOOPER OPERATOR [facility]-41656 Level 3 Est. Patient 21:54:06 CDT Vanessa Hickey MD [facility]-07823 Level 3 Est. Patient 08:54:46 CDT Alina Catsaneda MD [facility]-83053 Level 3 Est. Patient 09:32:11 CDT [facility]-27658 Level 3 Est. Patient 12:02:49 CDT Alina Castaneda MD [facility]-03479 Level 3 Est. Patient 19:17:33 CDT Alina Castaneda MD [facility]-53774 Level 3 Est. Patient 13:19:10 CDT Marvel Charles [facility]32445 Level 3 Est. Patient 08:20:05 CDT Alina Castaneda MD [facility]17223 Level 3 Est. Patient 15:17:18 CDT Alina Castaneda MD [facility]-33656 Level 3 Est. Patient 14:25:36 LOOPER OPERATOR Marvel [facility]-12099 Level 3 Est. Patient 10:09:15 LOOPER OPERATOR Marvel [facility]-82676 Level 3 Est. Patient 21:28:43 CDT Alina Castaneda MD [facility]-59170 Level 3 Est. Patient 15:20:11 CDT [facility] Level 4 Est. Patient 19:08:12 CDT Alina Castaneda MD [facility]-46709 Level 3 Est. Patient 15:06:39 [facility]-44125 Level 4 Est. Patient 17:48:15 CDT Alina Castaneda MD [facility]-16449 Level 3 Est. Patient 14:53:49 CDT Alina Castaneda MD [facility]-97890 Level 3 Est. Patient 09:35:16 CDT Alina Castaneda MD [facility]-46519 Level 3 Est. Patient 12:23:22 CDT Alina Castaneda MD [facility]-12141 Level 3 Est. Patient 16:19:15 CDT Alina Castaneda MD [facility]-38212 Level 3 Est. Patient 21:39:56 LOOPER OPERATOR Alina Castaneda MD [facility]-87303 Level 4 Est. Patient 14:12:56 LOOPER OPERATOR Alina Castaneda MD [facility]-35899 Level 2 Est. Patient 15:34:57 LOOPER OPERATOR Alina Castaneda MD [facility]-26634 Level 3 Est. Patient 12:17:04 LOOPER OPERATOR Alina Castaneda MD [facility]57881 Level 3 Est. Patient 09:18:18 LOOPER OPERATOR Marvel [facility]-71792 Level 2 Est. Patient 21:50:24 CDT Alina Castaneda MD [facility]65259 Level 3 Est. Patient 09:17:28 CDT Marvel [facility]-10305 Level 4 Est. Patient 18:54:02 CDT Alina Castaneda MD [facility]36999 Level 3 Est. Patient 10:47:10 CDT Alina Castaneda MD [facility]54056 Level 3 Est. Patient 09:22:20 CDT Marvel [facility]-50179 Level 3 Est. Patient 16:39:43 CDT [facility]-16855 Level 3 Est. Patient 16:05:16 CDT Alina Castaneda MD [facility]-01260 Level 3 Est. Patient 00:29:15 CDT Alina Castaneda MD [facility]47401 Level 3 Est. Patient 10:49:22 LOOPER OPERATOR Marvel Charles [facility]90510 Level 3 Est. Patient 21:30:19 LOOPER OPERATOR Alina Castaneda MD [facility]44877 Level 4 Est. Patient 17:04:11 LOOPER OPERATOR Marvel Charles [facility]94473 Level 3 Est. Patient 15:34:11 LOOPER OPERATOR Marvel MENDOZAP [facility] CPT-30521 Level 2 Est. Patient 12:51:58 LOOPER OPERATOR Alina Castaneda MD PhD [facility] CPT-76827 Level 3 Est. Patient 13:20:01 LOOPER OPERATOR Alina Castaneda MD PhD [facility] CPT-76400 Level 3 Est. Patient 09:23:35 CDT Alina Casatneda MD PhD [facility] Procedures Code Procedure Name Date Entry Date Standard Description CPT-65430 Level 2 [facility] 14:06:10 LOOPER OPERATOR CPT-G0439 [facility] Annual Wellness Exam 15:49:52 LOOPER OPERATOR CPT-06087 Level 3 [facility] 13:20:19 CDT CPT-TCMM Transitional Care Mgmt-Moderate 12:32:19 CDT CPT-16893 Level 2 [facility] 09:01:11 CDT CPT-16243 HGBA1C - LAB USE ONLY 09:30:27 LOOPER OPERATOR CPT-95437 BMP - LAB USE ONLY 09:30:27 LOOPER OPERATOR CPT-80054 Venipuncture Draw Fee 09:30:26 LOOPER OPERATOR CPT-TCMM Transitional Care Mgmt-Moderate 10:25:31 CDT CPT-40503 Bladder Scan 14:34:53 CDT CPT-33631 Bladder Scan 14:39:01 LOOPER OPERATOR CPT-TCMM Transitional Care Mgmt-Moderate 10:30:19 LOOPER OPERATOR CPT-32231 Bladder Scan 12:36:44 CDT CPT-15363 Bladder Scan 21:54:06 CDT CPT-G0008 Administration of Influenza Virus Vaccine 13:05:26 CDT CPT-51914 Fluzone Quadrivalent Intramuscular Suspension 0.5 ML 13: 05:26 CDT CPT-27378 Administration single or combination vaccine inc oral 11 :49:51 CDT CPT-06995 Pneumovax 11:49:51 CDT CPT-84903 Ribs unilateral 2V 12:37:22 LOOPER OPERATOR CPT-22817 Chest 2V Frontal and Lat 17:15:26 CDT CPT-88755 Abx/Therapy Injection 18:54:02 CDT CPT-J0696 Rocephin 1000 mg (Ceftriaxone) 16:00:32 CDT CPT-63686 Chest 2V Frontal and Lat 15:26:45 CDT CPT-60601 Chest 2V Frontal and Lat 10:23:27 CDT CPT-67190 Venipuncture Draw Fee 10:11:00 CDT CPT-22592 Administration single or combination vaccine inc oral 11 :56:38 CDT CPT-00436 Influenza split virus > age 3 11:56:38 CDT CPT-07890 Venipuncture Draw Fee 08:49:54 LOOPER OPERATOR CPT-85998 EKG Trac and Interp 17:54:19 LOOPER OPERATOR
--- OUTSIDE RECORDS SUMMARY | 2018-07-02 14:48 | XMS REPORT | Clinical Summary ---
Author Author Admin, MIKEE Organization [facility] Address Unknown Phone Unavailable Allergies, Adverse 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 Erazo REWARDS CONSULTANT Benign paroxysmal positional vertigo Vertigo, benign paroxysmal position 386.11 Inactive Mima Erazo REWARDS CONSULTANT Benign paroxysmal positional vertigo High-risk sexual behavior [...] by mouth once daily POLYETHYLENE GLYCOL 3350 48726632082 Active Cherelle Souza RN Active CLONAZEPAM 1 MG ORAL TABLET 1 tablet by mouth three times daily CLONAZEPAM 44553927058 Active Cherelle Souza RN Active MIRALAX ORAL POWDER 17g by mouth q12h, for constipation POLYETHYLENE GLYCOL 3350 22117941433 No Longer Active Cherelle Souza RN Active LACTOBACILLUS ORAL TABLET 1 tablet by mouth at bedtime for probiotic LACTOBACILLUS 27071504700 Active Cherelle Souza RN Active D 2000 2000 UNIT ORAL TABLET 1 tablet by mouth twice daily CHOLECALCIFEROL 23285379628 Active Cherelle Souza RN Active DIVALPROEX SODIUM ER 500 MG ORAL TABLET EXTENDED RELEASE 24 HOUR 3 tablets by mouth at bedtime for Mood DIVALPROEX SODIUM 49622981745 Active Cherelle Souza RN Active GLIMEPIRIDE 4 MG ORAL TABLET 1 tablet by mouth once daily GLIMEPIRIDE 43607305935 Active Cherelle Souza RN Active VENLAFAXINE HCL ER 150 MG ORAL CAPSULE EXTENDED RELEASE 24 HOUR 1 tablet by mouth once daily VENLAFAXINE HCL 59538499674 Active Cherelle Souza RN Active RISPERDAL 2 MG ORAL TABLET Take 1 tablet by mouth three times a day RISPERIDONE 29734483305 Active Mya Ledezma MA Active [facility] MILK OF MAGNESIA 400 MG/5ML ORAL SUSPENSION 30ml by mouth bid prn MAGNESIUM HYDROXIDE 20225857474 No Longer Active Mya Ledezma MA Active [facility] MELATONIN 3 MG ORAL TABLET 1 tab nightly MELATONIN 45270125787 No Longer Active May Ledezma MA Active AMBIEN 10 MG ORAL TABLET 1 at night as needed for sleep ZOLPIDEM TARTRATE 04336497440 Active Mason Loredo MD Active VERAPAMIL HCL ER 180 MG ORAL TABLET EXTENDED RELEASE 1 pill by mouth twice daily, for migraine prevention VERAPAMIL HCL 57185866440 No Longer Active Mason Loredo MD Active EFFEXOR XR 150 MG ORAL CAPSULE EXTENDED RELEASE 24 HOUR 1 tab daily VENLAFAXINE HCL 58658136499 No Longer Active Mason Loredo MD Active TOPAMAX 25 MG ORAL TABLET 1 tab BID PRN TOPIRAMATE 84419502270 No Longer Active Mason Loredo MD Active LATUDA 40 MG ORAL TABLET 1.5 tab by mouth in the afternoon 05/23 LURASIDONE HCL 39097014480 No Longer Active Mason Loredo MD Active QUETIAPINE FUMARATE 100 MG ORAL TABLET 1 tab PO at HS QUETIAPINE FUMARATE 57400869608 No Longer Active Mason Loredo MD Active QUETIAPINE FUMARATE 25 MG ORAL TABLET 2 tabs BID QUETIAPINE FUMARATE 41685181016 No Longer Active Mason Loredo MD Active ATORVASTATIN CALCIUM 10 MG ORAL TABLET Take 1 tablet by mouth daily. Recheck labs in 3 months ATORVASTATIN CALCIUM 61787011345 Active Mya Ledezma MA Active VERAPAMIL HCL ER 180 MG ORAL TABLET EXTENDED RELEASE 1 tab BID VERAPAMIL HCL 84902952654 Active Shavonne Feliciano PA-C Active SEROQUEL 25 MG ORAL TABLET Take two tabs by mouth in the morning, take 4 tablets at night QUETIAPINE FUMARATE 09756489676 No Longer Active Shavonne Feliciano PA-C Active AMARYL 2 MG ORAL TABLET give 2.5 tabs PO daily GLIMEPIRIDE 50828270325 No Longer Active Shavonne Feliciano PA-C Active FENOFIBRATE 145 MG ORAL TABLET 1 tab PO in the morning FENOFIBRATE 73529316078 Active Shavonne Feliciano PA-C Active SEROQUEL 100 MG ORAL TABLET 1 tab daily QUETIAPINE FUMARATE 78525800853 No Longer Active Shavonne Feliciano PA-C Active [facility] MELATONIN 3 MG ORAL TABLET give 1 tab by mouth at HS MELATONIN 04736990590 No Longer Active Gabrielle Marquez MA Active NOVOLOG FLEXPEN 100 UNIT/ML SUBCUTANEOUS SOLUTION PEN-INJECTOR sliding scale INSULIN ASPART 28599831660 Active Gabrielle Marquez MA Active METFORMIN HCL 1000 MG ORAL TABLET 1 tab by mouth BID METFORMIN HCL 02061932395 Active Gabrielleadrienne Marquez MA Active TAMSULOSIN HCL 0.4 MG ORAL CAPSULE give 2 capsules PO each evening TAMSULOSIN HCL 28083921641 No Longer Active Gabrielleadrienne Marquez MA Active VITAMIN D 2000 UNIT ORAL CAPSULE Take one by mouth daily CHOLECALCIFEROL 94542240864 No Longer Active Gabrielleadrienne Marquez MA Active LEVEMIR 100 UNIT/ML SUBCUTANEOUS SOLUTION 10 u at bedtime INSULIN DETEMIR 89064259948 Active Gabrielle Littleananda NOEL Active TAMSULOSIN HCL 0.4 MG ORAL CAPSULE 2 every night for urine flow TAMSULOSIN HCL 95568371259 Active Gabrielle Sidneyananda NOEL Active ALIGN 4 MG ORAL CAPSULE 1 tab at hs PROBIOTIC PRODUCT 40186554918 No Longer Active Gabrielle Marquez MA Active OCEAN NASAL SPRAY SOLUTION 2 sprays in both nostrils every 8 hours as needed for dry mucous membranes SALINE SOLN 26041787889 Active Mason Loredo MD Active BETHANECHOL CHLORIDE 25 MG ORAL TABLET Take 1 tablet mouth four times a day BETHANECHOL CHLORIDE 98578414141 Active Mason Loredo MD Active [facility] LUBRICANT EYE DROPS 0.4-0.3 % OPHTHALMIC SOLUTION POLYETHYL GLYCOL-PROPYL GLYCOL 69146550570 No Longer Active Mason Loredo MD Active TYLENOL 8 HOUR 650 MG ORAL TABLET EXTENDED RELEASE 1 tab QID prn ACETAMINOPHEN 73276824588 No Longer Active Mason Loredo MD Active TIMOPTIC OCUDOSE 0.5 % OPHTHALMIC SOLUTION instill one drop into both eyes q12H TIMOLOL MALEATE 41849712763 Active Mason Loredo MD Active TRAZODONE HCL 100 MG ORAL TABLET 1 every night to prevent headaches TRAZODONE HCL 43169833179 No Longer Active Mason Loredo MD Active TRAVATAN Z 0.004 % OPHTHALMIC SOLUTION 1 drop each eye daily 2017 TRAVOPROST 40088221889 No Longer Active Mason Loredo MD Active LATUDA 60 MG ORAL TABLET 1 tab daily LURASIDONE HCL 14649811862 No Longer Active Mason Loredo MD Active MORPHINE SULFATE ER 30 MG ORAL TABLET EXTENDED RELEASE Take one capsule BID MORPHINE SULFATE 19877605910 No Longer Active Mason Loredo MD Active TRUE METRIX BLOOD GLUCOSE TEST IN VITRO STRIP Check blood sugars 3x/day. 2015 GLUCOSE BLOOD 47341458211 No Longer Active Mason Loredo MD Active TRUEPLUS LANCETS 30G 3x a day LANCETS 11466958529 No Longer Active Mason Loredo MD Active MYLANTA GAS RELIEF MAXIMUM STR 125 MG ORAL CAPSULE 30cc every 4 hours prn SIMETHICONE 84574471035 No Longer Active Mason Loredo MD Active IMODIUM A-D 2 MG ORAL TABLET 1 tab QID as needed LOPERAMIDE HCL 83546113779 No Longer Active Mason Loredo MD Active FLONASE ALLERGY RELIEF 50 MCG/ACT NASAL SUSPENSION One spray each nostril BID x 1 week then daily FLUTICASONE PROPIONATE 58345034336 No Longer Active Mason Loredo MD Active FLUVOXAMINE MALEATE 100 MG ORAL TABLET take one tab every AM et HS, and take 1 /2 tab at noon FLUVOXAMINE MALEATE 41896568568 No Longer Active Mason Loredo MD Active BD PEN NEEDLE MINI U/F 31G X 5 MM 4 a day INSULIN PEN NEEDLE 50144419033 No Longer Active Mason Loredo MD Active AMITIZA 24 MCG ORAL CAPSULE Take one capsule BID for constipation LUBIPROSTONE 40281626989 No Longer Active Mason Loredo MD Active TRUEPLUS LANCETS 30G 3 a day LANCETS 72180687616 No Longer Active Mason Loredo MD Active CORICIDIN HBP CONGESTION/COUGH 10-200 MG ORAL CAPSULE Take as directed on box as needed for cold/flu symptoms DEXTROMETHORPHAN- GUAIFENESIN 36708306901 No Longer Active Mason Loredo MD Active OMEGA-3 300 MG ORAL CAPSULE 4 caps by mouth daily OMEGA-3 FATTY ACIDS 36596712608 No Longer Active Mason Loredo MD Active HUMALOG KWIKPEN 100 UNIT/ML SUBCUTANEOUS SOLUTION PEN-INJECTOR sliding scale if needed INSULIN LISPRO (HUMAN) 79962756828 No Longer Active Mason Loredo MD Active TRUETEST TEST IN VITRO STRIP check blood sugars 3x/day GLUCOSE BLOOD 03165271543 No Longer Active Mason Loredo MD Active ALFUZOSIN HCL ER 10 MG ORAL TABLET EXTENDED RELEASE 24 HOUR 1 tablet daily ALFUZOSIN HCL 56510496143 No Longer Active Mason Loredo MD Active BD INSULIN SYRINGE 28G X 1/2" 1 ML 1 four times per day INSULIN SYRINGE-NEEDLE U-100 13446819616 No Longer Active Mason Loredo MD Active LEVEMIR FLEXTOUCH 100 UNIT/ML SUBCUTANEOUS SOLUTION PEN-INJECTOR 60 units SQ each evening, for diabetes INSULIN DETEMIR 02386658343 No Longer Active Mason Loredo MD Active LACTULOSE 20 GM/30ML ORAL SOLUTION give 30 Ml PO BID PRN LACTULOSE 31606473894 Active Mason Loredo MD Active COLACE 100 MG ORAL CAPSULE 1 tab BID PRN DOCUSATE SODIUM 24525906077 Active Mason Loredo MD Active LATANOPROST 0.005 % OPHTHALMIC SOLUTION instill 1 drop in both eyes at bed time LATANOPROST 06576728819 Active Mason Loredo MD Active IBUPROFEN 400 MG ORAL TABLET 1 tab Q6H PRN IBUPROFEN 00950356460 Active Mason Loredo MD Active FLUVOXAMINE MALEATE 50 MG ORAL TABLET 1 tab by mouth daily 04/01 FLUVOXAMINE MALEATE 06303394198 No Longer Active Mima Erazo APRN Active TRUE METRIX METER w/Device KIT Check blood sugars 3x/day BLOOD GLUCOSE MONITORING SUPPL 38092808371 Active Marvel Mackenzieglari PUMP STATION OPERATOR Active LATUDA 60 MG ORAL TABLET Take one by mouth daily LURASIDONE HCL 68623369942 No Longer Active Mima Erazo APRN Active TRAVATAN Z 0.004 % OPHTHALMIC SOLUTION 1 gtt each eye daily TRAVOPROST 92049835746 No Longer Active Mason Loredo MD Active LISINOPRIL 20 MG ORAL TABLET 1 BID LISINOPRIL 30283250150 No Longer Active Mason Loredo MD Active ZOLPIDEM TARTRATE 10 MG ORAL TABLET take at bedtime ZOLPIDEM TARTRATE 36231250631 No Longer Active Mason Loredo MD Active HYDROCODONE-ACETAMINOPHEN 5-325 MG ORAL TABLET 2 tabs by mouth three times daily for pain HYDROCODONE-ACETAMINOPHEN 13863839424 No Longer Active Mason Loredo MD Active ZOFRAN 4 MG ORAL TABLET 1 po q4hr PRN Nausea ONDANSETRON HCL 35870280883 No Longer Active Mason Loredo MD Active LOMOTIL 2.5-0.025 MG ORAL TABLET take 1-2 tabs PO after each stool, no more than 8 in 24 hours DIPHENOXYLATE-ATROPINE 69928634132 No Longer Active Mason Loredo MD Active COLACE 100 MG ORAL CAPSULE 1 pill by mouth twice daily, for constipation 2014 DOCUSATE SODIUM 75953481041 No Longer Active Mima Yokum REWARDS CONSULTANT Active TOLTERODINE TARTRATE 2 MG ORAL TABLET 1 pill twice daily, for bladder TOLTERODINE TARTRATE 49498663401 No Longer Active Vanessa Hickey MD Active AMITIZA 24 MCG ORAL CAPSULE Take one capsule BID for constipation. LUBIPROSTONE 42057280475 No Longer Active Vanessa Hickey MD Active METOPROLOL SUCCINATE ER 100 MG ORAL TABLET EXTENDED RELEASE 24 HOUR 1 by mouth daily for blood pressure METOPROLOL SUCCINATE 59387548762 No Longer Active Grace Azam RMA Active METFORMIN HCL ER 500 MG ORAL TABLET EXTENDED RELEASE 24 HOUR Take three tablets by mouth everyday METFORMIN HCL 18030052763 No Longer Active Grace Azam RMA Active LOVAZA 1 GM ORAL CAPSULE 4 daily (for triglycerides) UVHAS-6-VCCA ETHYL ESTERS 76308423317 No Longer Active Grace Azam RMA Active TRAZODONE HCL 100 MG ORAL TABLET 1 tab by mouth for sleep TRAZODONE HCL 23172354710 No Longer Active Grace Azam RMA Active NOVOFINE 32G X 6 MM use one four times per day INSULIN PEN NEEDLE 56805678599 No Longer Active Grace Azam RMA Active BACTROBAN 2 % EXTERNAL CREAM Apply to affected area BID for up to 10 days MUPIROCIN CALCIUM 82912755660 No Longer Active Grace Azam RMA Active KEFLEX 500 MG ORAL CAPSULE 1 po BID x 7 days CEPHALEXIN 15677601848 No Longer Active Cherelle Avila APRN Active FLUVOXAMINE MALEATE 100 MG ORAL TABLET Take one (1) tablet by mouth am, 1/2 at noon FLUVOXAMINE MALEATE 73145901885 No Longer Active Mima Erazo APRN Active FLUVOXAMINE MALEATE 100 MG ORAL TABLET Take 1/2 tab at noon 03/04 FLUVOXAMINE MALEATE 37755677915 No Longer Active Cherelle Avila APRN Active ACCU-CHEK ROSA DEVICE Use device to check blood sugars BLOOD GLUCOSE MONITORING SUPPL 42293923065 No Longer Active Marvel MARROQUIN Active ACCU-CHEK ROSA IN VITRO STRIP use strips with device to check blood sugars 3 times daily GLUCOSE BLOOD 76205025155 No Longer Active Brooksjohn MARROQUIN Active CYCLOBENZAPRINE HCL 10 MG ORAL TABLET 1 tablet by mouth three times daily, scheduled CYCLOBENZAPRINE HCL 63922462080 No Longer Active Alina Castaneda MD PhD Active HUMALOG 100 UNIT/ML SUBCUTANEOUS SOLUTION Take 20 units with breakfast, 10u with lunch and suppetr. INSULIN LISPRO (HUMAN) 80807559883 No Longer Active Alina Castaneda MD PhD Active TRUETEST TEST IN VITRO STRIP check sugars 4x/day GLUCOSE BLOOD 57735388040 No Longer Active Alina Castaneda MD PhD Active MORPHINE SULFATE 30 MG ORAL TABLET 1 pill by mouth twice daily, for pain 2013 MORPHINE SULFATE 02670834744 No Longer Active Mason Loredo MD Active ACYCLOVIR 400 MG ORAL TABLET 1 pill three times daily x 5 days, for cold sore outbreak ACYCLOVIR 59318871573 No Longer Active Alina Castaneda MD PhD Active PENICILLIN V POTASSIUM 500 MG ORAL TABLET 1 pill by mouth three times daily PENICILLIN V POTASSIUM 59501044847 No Longer Active Alina Castaneda MD PhD Active UROXATRAL 10 MG ORAL TABLET EXTENDED RELEASE 24 HOUR Take 1 tablet by mouth daily ALFUZOSIN HCL 74662840054 No Longer Active Alina Castaneda MD PhD Active THIOTHIXENE 5 MG ORAL CAPSULE by mouth twice a day THIOTHIXENE 55476567327 No Longer Active Alina Castaneda MD PhD Active ZYPREXA 7.5 MG ORAL TABLET 1 at HS OLANZAPINE 78359369685 No Longer Active Alina Castaneda MD PhD Active DETROL LA 4 MG ORAL CAPSULE EXTENDED RELEASE 24 HOUR Take 1 tablet by mouth daily TOLTERODINE TARTRATE 15976803086 No Longer Active Alina Castaneda MD PhD Active TERESE CONTOUR TEST IN VITRO STRIP monitor blood sugars 3x/day GLUCOSE BLOOD 90529228642 No Longer Active Alina Castaneda MD PhD Active EQL TRUETEST TEST IN VITRO STRIP Test blood sugar TID GLUCOSE BLOOD 06320604099 No Longer Active Alina Castaneda MD PhD Active FLUTICASONE PROPIONATE 50 MCG/ACT NASAL SUSPENSION 2 sprays each nostril qDay x 30 days FLUTICASONE PROPIONATE 48992891574 No Longer Active Alina Castaneda MD PhD Active IBUPROFEN 200 MG ORAL TABLET 1 Q 6 hr. PRN IBUPROFEN 24024465205 No Longer Active Alina Castaneda MD PhD Active NIACIN ER 500 MG ORAL TABLET EXTENDED RELEASE 4 qHS (for triglycerides) 01/13 NIACIN 42766940905 No Longer Active Alina Castaneda MD PhD Active SAPHRIS 5 MG SUBLINGUAL TABLET SUBLINGUAL by mouth twice a day ASENAPINE MALEATE 68018005512 No Longer Active Maljohn Ziglari PUMP STATION OPERATOR Active ACETAMINOPHEN 500 MG ORAL TABLET 2 Q 6 hr. PRN ACETAMINOPHEN 48124384621 No Longer Active Maliheh Ziglari PUMP STATION OPERATOR Active ORPHENADRINE CITRATE ER 100 MG ORAL TABLET EXTENDED RELEASE 12 HOUR 1 every 12 hr. as needed ORPHENADRINE CITRATE 79853596828 No Longer Active Alina Castaneda MD PhD Active NIACIN ER 500 MG ORAL TABLET EXTENDED RELEASE 2 qHS NIACIN 57854374983 No Longer Active Alina Castaneda MD PhD Active AMOXICILLIN 500 MG ORAL CAPSULE 2 po BID x 10 days AMOXICILLIN 61095341859 No Longer Active Alina Castaneda MD PhD Active HYDROCODONE-ACETAMINOPHEN 7.5-325 MG ORAL TABLET 1 four times a day as needed for pain HYDROCODONE-ACETAMINOPHEN 25494048418 No Longer Active Alina Castaneda MD PhD Active DOXEPIN HCL 10 MG ORAL CAPSULE Take 1 tablet by mouth daily DOXEPIN HCL 82376166798 No Longer Active Salina Han [facility] Active NAVANE 10 MG CAPS 1/2 tablet twice a day THIOTHIXENE No Longer Active Salina Han [facility] Active CYCLOBENZAPRINE HCL 10 MG ORAL TABLET 1/2 tablet by mouth every 8 hours as needed for muscle spasms CYCLOBENZAPRINE HCL 64706834752 No Longer Active Alina Castaneda MD PhD Active BACTROBAN 2 % EXTERNAL CREAM apply to ear and nose twice daily MUPIROCIN CALCIUM 81440833051 No Longer Active Alina Castaneda MD PhD Active HYDROCODONE-ACETAMINOPHEN 5-325 MG ORAL TABLET take one tablet by mouth every four hours as needed for pain HYDROCODONE-ACETAMINOPHEN 23945422296 No Longer Active Alina Castaneda MD PhD Active ZYPREXA 5 MG ORAL TABLET take one tablet by mouth every evening OLANZAPINE 77483898850 No Longer Active Alina Castaneda MD PhD Active ALBUTEROL SULFATE (2.5 MG/3ML) 0.083% INHALATION NEBULIZATION SOLUTION one vial per nebulizer TID and PRN cough/soa ALBUTEROL SULFATE 23976923692 No Longer Active Alina Castaneda MD PhD Active GUAIFENESIN ER 600 MG ORAL TABLET EXTENDED RELEASE 12 HOUR 1 tablet by mouth twice daily if needed for cough GUAIFENESIN 28247565003 No Longer Active Marvel MENDOZAP Active AZITHROMYCIN 500 MG INTRAVENOUS SOLUTION RECONSTITUTED 1 po q day AZITHROMYCIN 21607019004 No Longer Active Alina Castaneda MD PhD Active PROMETHAZINE-CODEINE 6.25-10 MG/5ML ORAL SYRUP 1 tsp po q 6 hours prn cough PROMETHAZINE-CODEINE 01287872748 No Longer Active Alina Castaneda MD PhD Active CEFDINIR 300 MG ORAL CAPSULE by mouth twice a day CEFDINIR 99651202261 No Longer Active Alina Castaneda MD PhD Active METFORMIN HCL ER 500 MG ORAL TABLET EXTENDED RELEASE 24 HOUR Take 3 tablets by mouth everyday METFORMIN HCL 02843770169 No Longer Active Alina Castaneda MD PhD Active LEVEMIR 100 UNIT/ML SUBCUTANEOUS SOLUTION 90 units SQ qHS INSULIN DETEMIR 39038076110 No Longer Active Marvel MARROQUIN Active TOPROL XL 100 MG ORAL TABLET EXTENDED RELEASE 24 HOUR 1 @ HS METOPROLOL SUCCINATE 85899254634 No Longer Active Marvel MARROQUIN Active ALLOPURINOL 300 MG ORAL TABLET Take one by mouth daily ALLOPURINOL 49166659363 Active Mima Erazo REWARDS CONSULTANT Active ZYPREXA 10 MG ORAL TABLET Take one by mouth daily OLANZAPINE 49305598982 No Longer Active Alina Castaneda MD PhD Active NOVOLOG 100 UNIT/ML SUBCUTANEOUS SOLUTION 40 units with every meal INSULIN ASPART 08703481705 No Longer Active Alina Castaneda MD PhD Active VERAPAMIL HCL ER 120 MG ORAL TABLET EXTENDED RELEASE 1 qPM 09/08 VERAPAMIL HCL 32158636610 No Longer Active Salina ROJAS Active ZYPREXA 15 MG ORAL TABLET Take 1 tablet by mouth daily OLANZAPINE 81658552124 No Longer Active Marvel MARROQUIN Active ALBUTEROL SULFATE (2.5 MG/3ML) 0.083% INHALATION NEBULIZATION SOLUTION 1 neb tid and prn cough ALBUTEROL SULFATE 96284847021 No Longer Active Alina Castaneda MD PhD Active LANTUS 100 UNIT/ML SUBCUTANEOUS SOLUTION 60 units sq q hs INSULIN GLARGINE 48508439579 No Longer Active CRYSTAL Suarez Active ALBUTEROL SULFATE (2.5 MG/3ML) 0.083% INHALATION NEBULIZATION SOLUTION 1 neb tid and prn cough ALBUTEROL SULFATE (2.5 MG/3ML) 0.083% INHALATION NEBULIZATION SOLUTION 544346 ALBUTEROL SULFATE Inactive ZYPREXA 15 MG ORAL TABLET Take 1 tablet by mouth daily ZYPREXA 15 MG ORAL TABLET 709974 OLANZAPINE Inactive VERAPAMIL HCL ER 120 MG ORAL TABLET EXTENDED RELEASE 1 qPM 09/08 VERAPAMIL HCL ER 120 MG ORAL TABLET EXTENDED RELEASE VERAPAMIL HCL Inactive ZYPREXA 10 MG ORAL TABLET Take one by mouth daily ZYPREXA 10 MG ORAL TABLET 694723 OLANZAPINE Inactive TOPROL XL 100 MG ORAL TABLET EXTENDED RELEASE 24 HOUR 1 @ HS TOPROL XL 100 MG ORAL TABLET EXTENDED RELEASE 24 HOUR METOPROLOL SUCCINATE Inactive LEVEMIR 100 UNIT/ML SUBCUTANEOUS SOLUTION 90 units SQ qHS LEVEMIR 100 UNIT/ML SUBCUTANEOUS SOLUTION INSULIN DETEMIR Inactive PROMETHAZINE-CODEINE 6.25-10 MG/5ML ORAL SYRUP 1 tsp po q 6 hours prn cough PROMETHAZINE-CODEINE 6.25-10 MG/5ML ORAL SYRUP 546457 PROMETHAZINE-CODEINE Inactive GUAIFENESIN ER 600 MG ORAL TABLET EXTENDED RELEASE 12 HOUR 1 tablet by mouth twice daily if needed for cough GUAIFENESIN ER 600 MG ORAL TABLET EXTENDED RELEASE 12 HOUR GUAIFENESIN Inactive ALBUTEROL SULFATE (2.5 MG/3ML) 0.083% INHALATION NEBULIZATION SOLUTION one vial per nebulizer TID and PRN cough/soa ALBUTEROL SULFATE (2.5 MG/3ML) 0.083% INHALATION NEBULIZATION SOLUTION 002890 ALBUTEROL SULFATE Inactive ZYPREXA 5 MG ORAL TABLET take one tablet by mouth every evening ZYPREXA 5 MG ORAL TABLET 837103 OLANZAPINE Inactive HYDROCODONE-ACETAMINOPHEN 5-325 MG ORAL TABLET take one tablet by mouth every four hours as needed for pain HYDROCODONE-ACETAMINOPHEN 5-325 MG ORAL TABLET 402998 HYDROCODONE-ACETAMINOPHEN Inactive BACTROBAN 2 % EXTERNAL CREAM apply to ear and nose twice daily BACTROBAN 2 % EXTERNAL CREAM 762180 MUPIROCIN CALCIUM Inactive CYCLOBENZAPRINE HCL 10 MG ORAL TABLET 1/2 tablet by mouth every 8 hours as needed for muscle spasms CYCLOBENZAPRINE HCL 10 MG ORAL TABLET 424522 CYCLOBENZAPRINE HCL Inactive NAVANE 10 MG CAPS 1/2 tablet twice a day NAVANE 10 MG CAPS THIOTHIXENE Inactive DOXEPIN HCL 10 MG ORAL CAPSULE Take 1 tablet by mouth daily DOXEPIN HCL 10 MG ORAL CAPSULE 0850039 DOXEPIN HCL Inactive HYDROCODONE-ACETAMINOPHEN 7.5-325 MG ORAL TABLET 1 four times a day as needed for pain HYDROCODONE-ACETAMINOPHEN 7.5-325 MG ORAL TABLET 734581 HYDROCODONE-ACETAMINOPHEN Inactive NIACIN ER 500 MG ORAL [...] hr. PRN ACETAMINOPHEN 500 MG ORAL TABLET 076622 ACETAMINOPHEN Inactive SAPHRIS 5 MG SUBLINGUAL TABLET SUBLINGUAL by mouth twice a day SAPHRIS 5 MG SUBLINGUAL TABLET SUBLINGUAL ASENAPINE MALEATE Inactive NIACIN ER 500 MG ORAL TABLET EXTENDED RELEASE 4 qHS (for triglycerides) 01/13 NIACIN ER 500 MG ORAL TABLET EXTENDED RELEASE NIACIN Inactive IBUPROFEN 200 MG ORAL TABLET 1 Q 6 hr. PRN IBUPROFEN 200 MG ORAL TABLET 203423 IBUPROFEN Inactive FLUTICASONE PROPIONATE 50 MCG/ACT NASAL SUSPENSION 2 sprays each nostril qDay x 30 days FLUTICASONE PROPIONATE 50 MCG/ACT NASAL SUSPENSION 6450126 FLUTICASONE PROPIONATE Inactive EQL TRUETEST TEST IN [...] at HS ZYPREXA 7.5 MG ORAL TABLET 575434 OLANZAPINE Inactive THIOTHIXENE 5 MG ORAL CAPSULE by mouth twice a day THIOTHIXENE 5 MG ORAL CAPSULE 650061 THIOTHIXENE Inactive UROXATRAL 10 MG ORAL TABLET EXTENDED RELEASE 24 HOUR Take 1 tablet by mouth daily UROXATRAL 10 MG ORAL TABLET EXTENDED RELEASE 24 HOUR ALFUZOSIN HCL Inactive ACYCLOVIR 400 MG ORAL TABLET 1 pill three times daily x 5 days, for cold sore outbreak ACYCLOVIR 400 MG ORAL TABLET 700235 ACYCLOVIR Inactive TRUETEST TEST IN VITRO STRIP check sugars 4x/day TRUETEST TEST IN VITRO STRIP GLUCOSE BLOOD Inactive HUMALOG 100 UNIT/ML SUBCUTANEOUS SOLUTION Take 20 units with breakfast, 10u with lunch and suppetr. HUMALOG 100 UNIT/ML SUBCUTANEOUS SOLUTION INSULIN LISPRO (HUMAN) Inactive CYCLOBENZAPRINE HCL 10 MG ORAL TABLET 1 tablet by mouth three times daily, scheduled CYCLOBENZAPRINE HCL 10 MG ORAL TABLET 942493 CYCLOBENZAPRINE HCL Inactive ACCU-CHEK ROSA IN VITRO STRIP use strips with device to check blood sugars 3 times daily ACCU-CHEK ROSA IN VITRO STRIP GLUCOSE BLOOD Inactive ACCU-CHEK ROSA DEVICE Use device to check blood sugars ACCU-CHEK ROSA DEVICE BLOOD GLUCOSE MONITORING SUPPL Inactive FLUVOXAMINE MALEATE 100 MG ORAL TABLET Take 1/2 tab at noon 03/04 FLUVOXAMINE MALEATE 100 MG ORAL TABLET 618145 FLUVOXAMINE MALEATE Inactive FLUVOXAMINE MALEATE 100 MG ORAL TABLET Take one (1) tablet by mouth am, 1/2 at noon FLUVOXAMINE MALEATE 100 MG ORAL TABLET 966490 FLUVOXAMINE MALEATE Inactive BACTROBAN 2 % EXTERNAL CREAM Apply to affected area BID for up to 10 days BACTROBAN 2 % EXTERNAL CREAM 112607 MUPIROCIN CALCIUM Inactive NOVOFINE 32G X 6 MM use one four times per day NOVOFINE 32G X 6 MM INSULIN PEN NEEDLE Inactive TRAZODONE HCL 100 MG ORAL TABLET 1 tab by mouth for sleep TRAZODONE HCL 100 MG ORAL TABLET 594811 TRAZODONE HCL Inactive LOVAZA 1 GM ORAL CAPSULE 4 daily (for triglycerides) LOVAZA 1 GM ORAL CAPSULE 286620 [id number]-[id number] ETHYL ESTERS Inactive METFORMIN HCL ER 500 [...] bladder TOLTERODINE TARTRATE 2 MG ORAL TABLET 319955 TOLTERODINE TARTRATE Inactive COLACE 100 MG ORAL CAPSULE 1 pill by mouth twice daily, for constipation 2014 COLACE 100 MG ORAL CAPSULE 4355573 DOCUSATE SODIUM Inactive LOMOTIL 2.5-0.025 MG ORAL TABLET take 1-2 tabs PO after each stool, no more than 8 in 24 hours LOMOTIL 2.5-0.025 MG ORAL TABLET 0898907 DIPHENOXYLATE-ATROPINE Inactive ZOFRAN 4 MG ORAL TABLET 1 po q4hr PRN Nausea ZOFRAN 4 MG ORAL TABLET 253731 ONDANSETRON HCL Inactive HYDROCODONE-ACETAMINOPHEN 5-325 MG ORAL TABLET 2 tabs by mouth three times daily for pain HYDROCODONE-ACETAMINOPHEN 5-325 MG ORAL TABLET 686549 HYDROCODONE-ACETAMINOPHEN Inactive ZOLPIDEM TARTRATE 10 MG ORAL TABLET take at bedtime ZOLPIDEM TARTRATE 10 MG ORAL TABLET 803402 ZOLPIDEM TARTRATE Inactive LISINOPRIL 20 MG ORAL TABLET 1 BID LISINOPRIL 20 MG ORAL TABLET 248681 LISINOPRIL Inactive TRAVATAN Z 0.004 % OPHTHALMIC SOLUTION 1 gtt each eye daily TRAVATAN Z 0.004 % OPHTHALMIC SOLUTION TRAVOPROST Inactive LATUDA 60 MG ORAL TABLET Take one by mouth daily LATUDA 60 MG ORAL TABLET LURASIDONE HCL Inactive FLUVOXAMINE MALEATE 50 MG ORAL TABLET 1 tab by mouth daily 04/01 FLUVOXAMINE MALEATE 50 MG ORAL TABLET 136823 FLUVOXAMINE MALEATE Inactive LEVEMIR FLEXTOUCH 100 UNIT/ML [...] 30G 3 a day TRUEPLUS LANCETS 30G [id number] LANCETS Inactive AMITIZA 24 MCG ORAL CAPSULE [...] noon FLUVOXAMINE MALEATE 100 MG ORAL TABLET 298097 FLUVOXAMINE MALEATE Inactive FLONASE ALLERGY RELIEF 50 MCG/ACT NASAL SUSPENSION One spray each nostril BID x 1 week then daily FLONASE ALLERGY RELIEF 50 MCG/ACT NASAL SUSPENSION 3418584 FLUTICASONE PROPIONATE Inactive IMODIUM A-D 2 MG ORAL TABLET 1 tab QID as needed IMODIUM A-D 2 MG ORAL TABLET 031015 LOPERAMIDE HCL Inactive MYLANTA GAS RELIEF MAXIMUM STR 125 MG ORAL CAPSULE 30cc every 4 hours prn MYLANTA GAS RELIEF MAXIMUM STR 125 MG ORAL CAPSULE SIMETHICONE Inactive TRUEPLUS LANCETS 30G 3x a day TRUEPLUS LANCETS 30G [id number] LANCETS Inactive TRUE METRIX BLOOD GLUCOSE TEST [...] headaches TRAZODONE HCL 100 MG ORAL TABLET 862210 TRAZODONE HCL Inactive TYLENOL 8 HOUR 650 [...] evening TAMSULOSIN HCL 0.4 MG ORAL CAPSULE 380586 TAMSULOSIN HCL Inactive [facility] MEL[facility]ONIN 3 MG ORAL TABLET give 1 tab by mouth at HS [facility] MELATONIN 3 MG ORAL TABLET 19901024 MELATONIN Inactive SEROQUEL 100 MG ORAL TABLET 1 tab daily SEROQUEL 100 MG ORAL TABLET 935088 QUETIAPINE FUMARATE Inactive AMARYL 2 MG ORAL TABLET give 2.5 tabs PO daily AMARYL 2 MG ORAL TABLET 121814 GLIMEPIRIDE Inactive SEROQUEL 25 MG ORAL TABLET Take two tabs by mouth in the morning, take 4 tablets at night SEROQUEL 25 MG ORAL TABLET 213290 QUETIAPINE FUMARATE Inactive QUETIAPINE FUMARATE 25 MG ORAL TABLET 2 tabs BID QUETIAPINE FUMARATE 25 MG ORAL TABLET 526240 QUETIAPINE FUMARATE Inactive QUETIAPINE FUMARATE 100 MG ORAL TABLET 1 tab PO at HS QUETIAPINE FUMARATE 100 MG ORAL TABLET 106288 QUETIAPINE FUMARATE Inactive LATUDA 40 MG ORAL TABLET 1.5 tab by mouth in the afternoon 05/23 LATUDA 40 MG ORAL TABLET LURASIDONE HCL Inactive TOPAMAX 25 MG ORAL TABLET 1 tab BID PRN TOPAMAX 25 MG ORAL TABLET 365210 TOPIRAMATE Inactive EFFEXOR XR 150 MG ORAL [...] mouth q12h, for constipation MIRALAX ORAL POWDER 407659 POLYETHYLENE GLYCOL 3350 Inactive CEFDINIR 300 MG ORAL CAPSULE by mouth twice a day CEFDINIR 300 MG ORAL CAPSULE 329919 CEFDINIR Inactive AZITHROMYCIN 500 MG INTRAVENOUS SOLUTION RECONSTITUTED 1 po q day AZITHROMYCIN 500 MG INTRAVENOUS SOLUTION RECONSTITUTED [id number] AZITHROMYCIN Inactive AMOXICILLIN 500 MG ORAL CAPSULE 2 po BID x 10 days AMOXICILLIN 500 MG ORAL CAPSULE 585080 AMOXICILLIN Inactive PENICILLIN V POTASSIUM 500 MG ORAL TABLET 1 pill by mouth three times daily PENICILLIN V POTASSIUM 500 MG ORAL TABLET 139584 PENICILLIN V POTASSIUM Inactive KEFLEX 500 MG ORAL CAPSULE 1 po BID x 7 days KEFLEX 500 MG ORAL CAPSULE 073796 CEPHALEXIN Inactive Immunizations Vaccine Administration Date Value [...] Fluvirin, Fluarix, Agriflu(>=18 yo)) Fluzone (>3 yrs.) [[id number]] Influenza, seasonal, injectable pneumococcal immunization administered Pneumovax [...] ... - Chemistry sodium, serum 135 mmol/L 019-073 0695/08/22 carbon dioxide, venous blood 28.4 mmol/L 21.0-32.0 [...] mg/g {creat} 0-29 cholesterol, serum 263 mg/dL 959-411 1245/08/22 triglyceride, serum, fasting 1312 mg/dL 30-200 HDL [...] ordered Encounters Code Encounter Date Provider Facility CPT-34841 Level 3 Est. Patient 16:25:15 [employer] [facility] CPT-38045 04001-Wbt Vst-Est Level IV 15:10:01 [employer] Mason Loredo MD [facility] CPT-73728 24496-Ses Vst-Est Level III 11:00:25 CDT Shavonne Feliciano PA-C [facility] CPT-68711 Level 3 Est. Patient 09:12:14 [employer] Mima Erazo APRN [facility] [place] CPT-58964 Level 3 Est. Patient 16:52:51 CDT Vanessa Hickey MD [facility] CPT-36001 Level 3 Est. Patient 17:40:16 CDT Mima Vadimjerrell [facility] CPT-35275 Level 3 Est. Patient 14:34:52 CDT Vanessa Hickey MD [facility]-41110 Level 3 Est. Patient 16:27:51 CDT Mima Jeffliudmila [facility] CPT-14537 Level 3 Est. Patient 14:39:00 [employer] Vanessa Hickey MD [facility]-34059 Level 2 Est. Patient 18:43:34 CDT Mima Erazo [facility] CPT-02850 Level 3 Est. Patient 16:22:09 CDT Cherelle Avila [facility] CPT-78961 Level 4 Est. Patient 17:55:14 CDT Mima Erazo [facility] CPT-26982 Level 2 Est. Patient 17:13:21 CDT Alina Castaneda MD [facility]-63776 Level 3 Est. Patient 14:46:15 CDT Vanessa Hickey MD [facility]-62275 Level 3 Est. Patient 09:34:56 CDT Alina Castaneda MD [facility]-04190 Level 3 Est. Patient 21:40:19 CDT Mima Vadimjerrell [facility] CPT-47390 Level 3 Est. Patient 09:26:40 CDT Marvel [facility]-49967 Level 3 Est. Patient 12:36:43 CDT Vanessa Hickey MD [facility]-97329 Level 3 Est. Patient 12:57:49 CDT Vanessa Hickey MD [facility]-25799 Level 3 Est. Patient 00:28:25 CDT Alina Castaneda MD [facility]53708 Level 2 Est. Patient 12:52:14 CDT Alina Castaneda MD [facility]-75575 Level 3 Est. Patient 11:51:18 [employer] Alina Castaneda MD [facility]-10434 Level 3 Est. Patient 10:09:22 [employer] Alina Castaneda [facility]12569 Level 3 Est. Patient 14:36:26 [employer] Marvel [facility]-63551 Level 3 Est. Patient 13:34:47 [employer] Alina Castaneda MD [facility] [place] Level 3 Est. Patient 19:52:08 [employer] Alina Castaneda MD [facility] [place] Level 3 Est. Patient 10:01:51 [employer] [facility]-59013 Level 3 Est. Patient 21:54:06 CDT Vanessa Hickey MD [facility]-02223 Level 3 Est. Patient 08:54:46 CDT Alina Castaneda MD [facility]-37742 Level 3 Est. Patient 09:32:11 [facility]-69720 Level 3 Est. Patient 12:02:49 CDT Alina Castaneda MD [facility]-96551 Level 3 Est. Patient 19:17:33 CDT Alina Castaneda MD [facility]-33600 Level 3 Est. Patient 13:19:[address] [facility]85764 Level 3 Est. Patient 08:20:05 CDT Alina Castaneda MD [facility] [place] Level 3 Est. Patient 15:17:18 CDT Alina Castaneda MD [facility]-60898 Level 3 Est. Patient 14:25:36 [employer] Marvel [facility]-18201 Level 3 Est. Patient 10:09:15 [employer] Marvel [facility]-97271 Level 3 Est. Patient 21:28:43 CDT Alina Castaneda MD [facility]-86718 Level 3 Est. Patient 15:20:11 CDT [facility] Level 4 Est. Patient 19:08:12 CDT Alina Castaneda MD [facility]-56253 Level 3 Est. Patient 15:06:39 [facility]T [facility]-22973 Level 4 Est. Patient 17:48:15 CDT Alina Castaneda MD [facility]-40974 Level 3 Est. Patient 14:53:49 CDT Alina Castaneda MD [facility]-01391 Level 3 Est. Patient 09:35:16 CDT Alina Castaneda MD [facility]-40219 Level 3 Est. Patient 12:23:22 CDT Alina Castaneda MD [facility]-44019 Level 3 Est. Patient 16:19:15 CDT Alina Castaneda MD [facility]-33028 Level 3 Est. Patient 21:39:56 [employer] Alina Castaneda MD [facility]-92707 Level 4 Est. Patient 14:12:56 [employer] Alina Castaneda MD [facility]-11884 Level 2 Est. Patient 15:34:57 [employer] Alina Castaneda MD [facility]-46119 Level 3 Est. Patient 12:17:04 [employer] Alina Castaneda MD [facility] [place] Level 3 Est. Patient 09:18:18 [employer] Marvel [facility]-34011 Level 2 Est. Patient 21:50:24 CDT Alina Castaneda MD [facility] [place] Level 3 Est. Patient 09:17:28 CDT Marvel [facility]-32177 Level 4 Est. Patient 18:54:02 CDT Alina Castaneda MD [facility] [place] Level 3 Est. Patient 10:47:10 CDT Alina Castaneda MD [facility] [place] Level 3 Est. Patient 09:22:20 CDT Marvel [facility]-94935 Level 3 Est. Patient 16:39:43 CDT [facility]-45581 Level 3 Est. Patient 16:05:16 CDT Alina Castaneda MD [facility]-03992 Level 3 Est. Patient 00:29:15 CDT Alina Castaneda MD [facility] [place] Level 3 Est. Patient 10:49:22 [employer] [facility]79247 Level 3 Est. Patient 21:30:19 [employer] Alina Castaneda MD [facility] [place] Level 4 Est. Patient 17:04:11 [employer] [facility]37386 Level 3 Est. Patient 15:34:11 [employer] Marvel MENDOZAP [facility] CPT-52521 Level 2 Est. Patient 12:51:58 [employer] Alina Castaneda MD PhD [facility] CPT-26640 Level 3 Est. Patient 13:20:01 [employer] Alina Castaneda MD PhD [facility] CPT-64325 Level 3 Est. Patient 09:23:35 CDT Alina Castaneda MD PhD [facility] Procedures Code Procedure Name Date Entry Date Standard Description CPT-21429 Level 2 Mcfp 14:06:10 [employer] CPT-G0439 [facility] Annual Wellness Exam 15:49:52 [employer] CPT-64343 Level 3 Mcfp 13:20:19 CDT CPT-TCMM Transitional Care Mgmt-Moderate 12:32:19 CDT CPT-84246 Level 2 Mcfp 09:01:11 CDT CPT-30814 HGBA1C - LAB USE ONLY 09:30:27 [employer] CPT-53630 BMP - LAB USE ONLY 09:30:27 [employer] CPT-27391 Venipuncture Draw Fee 09:30:26 [employer] CPT-TCMM Transitional Care Mgmt-Moderate 10:25:31 CDT CPT-67809 Bladder Scan 14:34:53 CDT CPT-80210 Bladder Scan 14:39:01 [employer] CPT-TCMM Transitional Care Mgmt-Moderate 10:30:19 [employer] CPT-81832 Bladder Scan 12:36:44 CDT CPT-86710 Bladder Scan 21:54:06 CDT CPT-G0008 Administration of Influenza Virus Vaccine 13:05:26 CDT CPT-54037 Fluzone Quadrivalent Intramuscular Suspension 0.5 ML 13: 05:26 CDT CPT-42357 Administration single or combination vaccine inc oral 11 :49:51 CDT CPT-01392 Pneumovax 11:49:51 CDT CPT-96430 Ribs unilateral 2V 12:37:22 [employer] CPT-26664 Chest 2V Frontal and Lat 17:15:26 CDT CPT-28223 Abx/Therapy Injection 18:54:02 CDT CPT-J0696 Rocephin 1000 mg (Ceftriaxone) 16:00:32 CDT CPT-96802 Chest 2V Frontal and Lat 15:26:45 CDT CPT-97577 Chest 2V Frontal and Lat 10:23:27 CDT CPT-81559 Venipuncture Draw Fee 10:11:00 CDT CPT-49766 Administration single or combination vaccine inc oral 11 :56:38 CDT CPT-46654 Influenza split virus > age 3 11:56:38 CDT CPT-25521 Venipuncture Draw Fee 08:49:54 [employer] CPT-44396 EKG Trac and Interp 17:54:19 [employer]
--- OUTSIDE RECORDS SUMMARY | 2018-07-02 14:51 | XMS REPORT | Clinical Summary ---
Author Author Admin, MIKEE Organization [facility] [employer] Address Unknown Phone Unavailable Allergies, Adverse Reactions, 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 Erazo APPLIANCE COUNSELOR Benign paroxysmal positional vertigo Vertigo, benign paroxysmal position 386.11 Inactive Mima Erazo APPLIANCE COUNSELOR Benign paroxysmal positional vertigo High-risk sexual [...] MD PhD Chest pain, atypical ICD-786.59 Inactive Ailna Castaneda MD PhD High-risk sexual behavior ICD-V69.2 [...] by mouth once daily POLYETHYLENE GLYCOL 3350 [id number] Active Cherelle Souza RN Active CLONAZEPAM 1 MG ORAL TABLET 1 tablet by mouth three times daily CLONAZEPAM 11414283211 Active Cherelle Souza RN Active MIRALAX ORAL POWDER 17g by mouth q12h, for constipation POLYETHYLENE GLYCOL 3350 72421747867 No Longer Active Cherelle Souza RN Active LACTOBACILLUS ORAL TABLET 1 tablet by mouth at bedtime for probiotic LACTOBACILLUS 90465415943 Active Cherelle Souza RN Active D 2000 2000 UNIT ORAL TABLET 1 tablet by mouth twice daily CHOLECALCIFEROL 98416958331 Active Cherelle Souza RN Active DIVALPROEX SODIUM ER 500 MG ORAL TABLET EXTENDED RELEASE 24 HOUR 3 tablets by mouth at bedtime for Mood DIVALPROEX SODIUM 54476150970 Active Cherelle Souza RN Active GLIMEPIRIDE 4 MG ORAL TABLET 1 tablet by mouth once daily GLIMEPIRIDE 33647629126 Active Cherelle Souza RN Active VENLAFAXINE HCL ER 150 MG ORAL CAPSULE EXTENDED RELEASE 24 HOUR 1 tablet by mouth once daily VENLAFAXINE HCL 83491903986 Active Cherelle Souza RN Active RISPERDAL 2 MG ORAL TABLET Take 1 tablet by mouth three times a day RISPERIDONE 69461498047 Active Mya Ledezma MA Active [facility] MILK OF MAGNESIA 400 MG/5ML ORAL SUSPENSION 30ml by mouth bid prn MAGNESIUM HYDROXIDE 54135839895 No Longer Active Mya Ledezma MA Active [facility] MELATONIN 3 MG ORAL TABLET 1 tab nightly MELATONIN 02601627968 No Longer Active Mya Ledezma MA Active AMBIEN 10 MG ORAL TABLET 1 at night as needed for sleep ZOLPIDEM TARTRATE 95410213412 Active Mason Loredo MD Active VERAPAMIL HCL ER 180 MG ORAL TABLET EXTENDED RELEASE 1 pill by mouth twice daily, for migraine prevention VERAPAMIL HCL 77124559938 No Longer Active Mason Loredo MD Active EFFEXOR XR 150 MG ORAL CAPSULE EXTENDED RELEASE 24 HOUR 1 tab daily VENLAFAXINE HCL 80676353726 No Longer Active Mason Loredo MD Active TOPAMAX 25 MG ORAL TABLET 1 tab BID PRN TOPIRAMATE 94651346334 No Longer Active Mason Loredo MD Active LATUDA 40 MG ORAL TABLET 1.5 tab by mouth in the afternoon 05/23 LURASIDONE HCL 74073740078 No Longer Active Mason Loredo MD Active QUETIAPINE FUMARATE 100 MG ORAL TABLET 1 tab PO at HS QUETIAPINE FUMARATE 96558746212 No Longer Active Mason Loredo MD Active QUETIAPINE FUMARATE 25 MG ORAL TABLET 2 tabs BID QUETIAPINE FUMARATE 84848985061 No Longer Active Mason Loredo MD Active ATORVASTATIN CALCIUM 10 MG ORAL TABLET Take 1 tablet by mouth daily. Recheck labs in 3 months ATORVASTATIN CALCIUM 76645852289 Active Mya Ledezma MA Active VERAPAMIL HCL ER 180 MG ORAL TABLET EXTENDED RELEASE 1 tab BID VERAPAMIL HCL 95547034098 Active Shavonne Feliciano PA-C Active SEROQUEL 25 MG ORAL TABLET Take two tabs by mouth in the morning, take 4 tablets at night QUETIAPINE FUMARATE 47577968231 No Longer Active Shavonne Feliciano PA-C Active AMARYL 2 MG ORAL TABLET give 2.5 tabs PO daily GLIMEPIRIDE 84919461465 No Longer Active Shavonne Feliciano PA-C Active FENOFIBRATE 145 MG ORAL TABLET 1 tab PO in the morning FENOFIBRATE 14555049427 Active Shavonne Feliciano PA-C Active SEROQUEL 100 MG ORAL TABLET 1 tab daily QUETIAPINE FUMARATE 41289443733 No Longer Active Shavonne Feliciano PA-C Active [facility] MELATONIN 3 MG ORAL TABLET give 1 tab by mouth at HS MELATONIN 08109180576 No Longer Active Gabrielle Marquez MA Active NOVOLOG FLEXPEN 100 UNIT/ML SUBCUTANEOUS SOLUTION PEN-INJECTOR sliding scale INSULIN ASPART 78794627655 Active Gabrielle Marquez MA Active METFORMIN HCL 1000 MG ORAL TABLET 1 tab by mouth BID METFORMIN HCL 97119650499 Active Gabrielleadrienne Marquez MA Active TAMSULOSIN HCL 0.4 MG ORAL CAPSULE give 2 capsules PO each evening TAMSULOSIN HCL 77167045222 No Longer Active Gabrielleadrienne Marquez MA Active VITAMIN D 2000 UNIT ORAL CAPSULE Take one by mouth daily CHOLECALCIFEROL 67453062991 No Longer Active Gabrielleadrienne Marquez MA Active LEVEMIR 100 UNIT/ML SUBCUTANEOUS SOLUTION 10 u at bedtime INSULIN DETEMIR 16234219882 Active Gabrielle Littleananda NOEL Active TAMSULOSIN HCL 0.4 MG ORAL CAPSULE 2 every night for urine flow TAMSULOSIN HCL 11269067254 Active Gabrielle Sidneyananda NOEL Active ALIGN 4 MG ORAL CAPSULE 1 tab at hs PROBIOTIC PRODUCT 81355715716 No Longer Active Gabrielle Marquez MA Active OCEAN NASAL SPRAY SOLUTION 2 sprays in both nostrils every 8 hours as needed for dry mucous membranes SALINE SOLN 84554744550 Active Mason Loredo MD Active BETHANECHOL CHLORIDE 25 MG ORAL TABLET Take 1 tablet mouth four times a day BETHANECHOL CHLORIDE 79516746016 Active Mason Loredo MD Active [facility] LUBRICANT EYE DROPS 0.4-0.3 % OPHTHALMIC SOLUTION POLYETHYL GLYCOL-PROPYL GLYCOL 32464438738 No Longer Active Mason Loredo MD Active TYLENOL 8 HOUR 650 MG ORAL TABLET EXTENDED RELEASE 1 tab QID prn ACETAMINOPHEN 90726696534 No Longer Active Mason Loredo MD Active TIMOPTIC OCUDOSE 0.5 % OPHTHALMIC SOLUTION instill one drop into both eyes q12H TIMOLOL MALEATE 72532721481 Active Mason Loredo MD Active TRAZODONE HCL 100 MG ORAL TABLET 1 every night to prevent headaches TRAZODONE HCL 92613936494 No Longer Active Mason Loredo MD Active TRAVATAN Z 0.004 % OPHTHALMIC SOLUTION 1 drop each eye daily 2017 TRAVOPROST 25008529319 No Longer Active Mason Loredo MD Active LATUDA 60 MG ORAL TABLET 1 tab daily LURASIDONE HCL 84022094683 No Longer Active Mason Loredo MD Active MORPHINE SULFATE ER 30 MG ORAL TABLET EXTENDED RELEASE Take one capsule BID MORPHINE SULFATE 37806815530 No Longer Active Mason Loredo MD Active TRUE METRIX BLOOD GLUCOSE TEST IN VITRO STRIP Check blood sugars 3x/day. 2015 GLUCOSE BLOOD 60643170670 No Longer Active Mason Loredo MD Active TRUEPLUS LANCETS 30G 3x a day LANCETS 11583485014 No Longer Active Mason Loredo MD Active MYLANTA GAS RELIEF MAXIMUM STR 125 MG ORAL CAPSULE 30cc every 4 hours prn SIMETHICONE 72861496569 No Longer Active Mason Loredo MD Active IMODIUM A-D 2 MG ORAL TABLET 1 tab QID as needed LOPERAMIDE HCL 40913408648 No Longer Active Mason Loredo MD Active FLONASE ALLERGY RELIEF 50 MCG/ACT NASAL SUSPENSION One spray each nostril BID x 1 week then daily FLUTICASONE PROPIONATE 40438663112 No Longer Active Mason Loredo MD Active FLUVOXAMINE MALEATE 100 MG ORAL TABLET take one tab every AM et HS, and take 1 /2 tab at noon FLUVOXAMINE MALEATE 03017284652 No Longer Active Mason Loredo MD Active BD PEN NEEDLE MINI U/F 31G X 5 MM 4 a day INSULIN PEN NEEDLE 34549048816 No Longer Active Mason Loredo MD Active AMITIZA 24 MCG ORAL CAPSULE Take one capsule BID for constipation LUBIPROSTONE 52505378672 No Longer Active Mason Loredo MD Active TRUEPLUS LANCETS 30G 3 a day LANCETS 81388029657 No Longer Active Mason Loredo MD Active CORICIDIN HBP CONGESTION/COUGH 10-200 MG ORAL CAPSULE Take as directed on box as needed for cold/flu symptoms DEXTROMETHORPHAN- GUAIFENESIN 65117673699 No Longer Active Mason Loredo MD Active OMEGA-3 300 MG ORAL CAPSULE 4 caps by mouth daily OMEGA-3 FATTY ACIDS 38044546247 No Longer Active Mason Loredo MD Active HUMALOG KWIKPEN 100 UNIT/ML SUBCUTANEOUS SOLUTION PEN-INJECTOR sliding scale if needed INSULIN LISPRO (HUMAN) 70961310468 No Longer Active Mason Loredo MD Active TRUETEST TEST IN VITRO STRIP check blood sugars 3x/day GLUCOSE BLOOD 72146254587 No Longer Active Mason Loredo MD Active ALFUZOSIN HCL ER 10 MG ORAL TABLET EXTENDED RELEASE 24 HOUR 1 tablet daily ALFUZOSIN HCL 00802741626 No Longer Active Mason Loredo MD Active BD INSULIN SYRINGE 28G X 1/2" 1 ML 1 four times per day INSULIN SYRINGE-NEEDLE U-100 79711834511 No Longer Active Mason Loredo MD Active LEVEMIR FLEXTOUCH 100 UNIT/ML SUBCUTANEOUS SOLUTION PEN-INJECTOR 60 units SQ each evening, for diabetes INSULIN DETEMIR 34521120247 No Longer Active Mason Loredo MD Active LACTULOSE 20 GM/30ML ORAL SOLUTION give 30 Ml PO BID PRN LACTULOSE 55421936475 Active Mason Loredo MD Active COLACE 100 MG ORAL CAPSULE 1 tab BID PRN DOCUSATE SODIUM 25045813595 Active Mason Loredo MD Active LATANOPROST 0.005 % OPHTHALMIC SOLUTION instill 1 drop in both eyes at bed time LATANOPROST 54143665597 Active Mason Loredo MD Active IBUPROFEN 400 MG ORAL TABLET 1 tab Q6H PRN IBUPROFEN 11590679161 Active Mason Loredo MD Active FLUVOXAMINE MALEATE 50 MG ORAL TABLET 1 tab by mouth daily 04/01 FLUVOXAMINE MALEATE 78599628917 No Longer Active Mima Erazo APRN Active TRUE METRIX METER w/Device KIT Check blood sugars 3x/day BLOOD GLUCOSE MONITORING SUPPL 59732372444 Active Marvel Mackenzieglari HELP DESK ASSISTANT Active LATUDA 60 MG ORAL TABLET Take one by mouth daily LURASIDONE HCL 20100947211 No Longer Active Mima Erazo APRN Active TRAVATAN Z 0.004 % OPHTHALMIC SOLUTION 1 gtt each eye daily TRAVOPROST 05971558972 No Longer Active Mason Loredo MD Active LISINOPRIL 20 MG ORAL TABLET 1 BID LISINOPRIL 55659720766 No Longer Active Mason Loredo MD Active ZOLPIDEM TARTRATE 10 MG ORAL TABLET take at bedtime ZOLPIDEM TARTRATE 48932763396 No Longer Active Mason Loredo MD Active HYDROCODONE-ACETAMINOPHEN 5-325 MG ORAL TABLET 2 tabs by mouth three times daily for pain HYDROCODONE-ACETAMINOPHEN 40636084827 No Longer Active Mason Loredo MD Active ZOFRAN 4 MG ORAL TABLET 1 po q4hr PRN Nausea ONDANSETRON HCL 27627970726 No Longer Active Mason Loredo MD Active LOMOTIL 2.5-0.025 MG ORAL TABLET take 1-2 tabs PO after each stool, no more than 8 in 24 hours DIPHENOXYLATE-ATROPINE 93098152604 No Longer Active Mason Loredo MD Active COLACE 100 MG ORAL CAPSULE 1 pill by mouth twice daily, for constipation 2014 DOCUSATE SODIUM 66364910114 No Longer Active Mima Yokum APPLIANCE COUNSELOR Active TOLTERODINE TARTRATE 2 MG ORAL TABLET 1 pill twice daily, for bladder TOLTERODINE TARTRATE 44740843329 No Longer Active Vanessa Hickey MD Active AMITIZA 24 MCG ORAL CAPSULE Take one capsule BID for constipation. LUBIPROSTONE 86515989769 No Longer Active Vanessa Hickey MD Active METOPROLOL SUCCINATE ER 100 MG ORAL TABLET EXTENDED RELEASE 24 HOUR 1 by mouth daily for blood pressure METOPROLOL SUCCINATE 90502000347 No Longer Active Grace Azam RMA Active METFORMIN HCL ER 500 MG ORAL TABLET EXTENDED RELEASE 24 HOUR Take three tablets by mouth everyday METFORMIN HCL 81868063034 No Longer Active Grace Azam RMA Active LOVAZA 1 GM ORAL CAPSULE 4 daily (for triglycerides) [id number] ETHYL ESTERS 95961705199 No Longer Active Grace Azam RMA Active TRAZODONE HCL 100 MG ORAL TABLET 1 tab by mouth for sleep TRAZODONE HCL 50963000084 No Longer Active Grace Azam RMA Active NOVOFINE 32G X 6 MM use one four times per day INSULIN PEN NEEDLE 00015686332 No Longer Active Grace Azam RMA Active BACTROBAN 2 % EXTERNAL CREAM Apply to affected area BID for up to 10 days MUPIROCIN CALCIUM 15670395635 No Longer Active Grace Azam RMA Active KEFLEX 500 MG ORAL CAPSULE 1 po BID x 7 days CEPHALEXIN 08663839690 No Longer Active Cherelle Avila APRN Active FLUVOXAMINE MALEATE 100 MG ORAL TABLET Take one (1) tablet by mouth am, 1/2 at noon FLUVOXAMINE MALEATE 95693561387 No Longer Active Mima Erazo APRN Active FLUVOXAMINE MALEATE 100 MG ORAL TABLET Take 1/2 tab at noon 03/04 FLUVOXAMINE MALEATE 86658818902 No Longer Active Cherelle Avila APRN Active ACCU-CHEK ROSA DEVICE Use device to check blood sugars BLOOD GLUCOSE MONITORING SUPPL 10457873263 No Longer Active Marvel MARROQUIN Active ACCU-CHEK ROSA IN VITRO STRIP use strips with device to check blood sugars 3 times daily GLUCOSE BLOOD 45231211616 No Longer Active Brooksjohn MARROQUIN Active CYCLOBENZAPRINE HCL 10 MG ORAL TABLET 1 tablet by mouth three times daily, scheduled CYCLOBENZAPRINE HCL 68775336094 No Longer Active Alina Castaneda MD PhD Active HUMALOG 100 UNIT/ML SUBCUTANEOUS SOLUTION Take 20 units with breakfast, 10u with lunch and suppetr. INSULIN LISPRO (HUMAN) 65002414981 No Longer Active Alina Castaneda MD PhD Active TRUETEST TEST IN VITRO STRIP check sugars 4x/day GLUCOSE BLOOD 62634983545 No Longer Active Alina Castaneda MD PhD Active MORPHINE SULFATE 30 MG ORAL TABLET 1 pill by mouth twice daily, for pain 2013 MORPHINE SULFATE 01259702224 No Longer Active Mason Loredo MD Active ACYCLOVIR 400 MG ORAL TABLET 1 pill three times daily x 5 days, for cold sore outbreak ACYCLOVIR 97517952294 No Longer Active Alina Castaneda MD PhD Active PENICILLIN V POTASSIUM 500 MG ORAL TABLET 1 pill by mouth three times daily PENICILLIN V POTASSIUM 36920687873 No Longer Active Alina Castaneda MD PhD Active UROXATRAL 10 MG ORAL TABLET EXTENDED RELEASE 24 HOUR Take 1 tablet by mouth daily ALFUZOSIN HCL 91630520371 No Longer Active Alina Castaneda MD PhD Active THIOTHIXENE 5 MG ORAL CAPSULE by mouth twice a day THIOTHIXENE 99060928428 No Longer Active Alina Castaneda MD PhD Active ZYPREXA 7.5 MG ORAL TABLET 1 at HS OLANZAPINE 77293467051 No Longer Active Alina Castaneda MD PhD Active DETROL LA 4 MG ORAL CAPSULE EXTENDED RELEASE 24 HOUR Take 1 tablet by mouth daily TOLTERODINE TARTRATE 08228353948 No Longer Active Alina Castaneda MD PhD Active TERESE CONTOUR TEST IN VITRO STRIP monitor blood sugars 3x/day GLUCOSE BLOOD 76231482752 No Longer Active Alina Castaneda MD PhD Active EQL TRUETEST TEST IN VITRO STRIP Test blood sugar TID GLUCOSE BLOOD 57699906529 No Longer Active Alina Castaneda MD PhD Active FLUTICASONE PROPIONATE 50 MCG/ACT NASAL SUSPENSION 2 sprays each nostril qDay x 30 days FLUTICASONE PROPIONATE 35144978150 No Longer Active Alina Castaneda MD PhD Active IBUPROFEN 200 MG ORAL TABLET 1 Q 6 hr. PRN IBUPROFEN 09844875798 No Longer Active Alina Castaneda MD PhD Active NIACIN ER 500 MG ORAL TABLET EXTENDED RELEASE 4 qHS (for triglycerides) 01/13 NIACIN 16352207865 No Longer Active Alina Castaneda MD PhD Active SAPHRIS 5 MG SUBLINGUAL TABLET SUBLINGUAL by mouth twice a day ASENAPINE MALEATE 73359310715 No Longer Active Maljohn Ziglari HELP DESK ASSISTANT Active ACETAMINOPHEN 500 MG ORAL TABLET 2 Q 6 hr. PRN ACETAMINOPHEN 45237393380 No Longer Active Maliheh Ziglari HELP DESK ASSISTANT Active ORPHENADRINE CITRATE ER 100 MG ORAL TABLET EXTENDED RELEASE 12 HOUR 1 every 12 hr. as needed ORPHENADRINE CITRATE 49875437100 No Longer Active Alina Castaneda MD PhD Active NIACIN ER 500 MG ORAL TABLET EXTENDED RELEASE 2 qHS NIACIN 63921922866 No Longer Active Alina Castaneda MD PhD Active AMOXICILLIN 500 MG ORAL CAPSULE 2 po BID x 10 days AMOXICILLIN 68927396660 No Longer Active Alina Castaneda MD PhD Active HYDROCODONE-ACETAMINOPHEN 7.5-325 MG ORAL TABLET 1 four times a day as needed for pain HYDROCODONE-ACETAMINOPHEN 26137423311 No Longer Active Alina Castaneda MD PhD Active DOXEPIN HCL 10 MG ORAL CAPSULE Take 1 tablet by mouth daily DOXEPIN HCL 27621033111 No Longer Active Salina Han [facility] Active NAVANE 10 MG CAPS 1/2 tablet twice a day THIOTHIXENE No Longer Active Salina Han [facility] Active CYCLOBENZAPRINE HCL 10 MG ORAL TABLET 1/2 tablet by mouth every 8 hours as needed for muscle spasms CYCLOBENZAPRINE HCL 72082464558 No Longer Active Alina Castaneda MD PhD Active BACTROBAN 2 % EXTERNAL CREAM apply to ear and nose twice daily MUPIROCIN CALCIUM 14159574673 No Longer Active Alina Castaneda MD PhD Active HYDROCODONE-ACETAMINOPHEN 5-325 MG ORAL TABLET take one tablet by mouth every four hours as needed for pain HYDROCODONE-ACETAMINOPHEN 67921351735 No Longer Active Alina Castaneda MD PhD Active ZYPREXA 5 MG ORAL TABLET take one tablet by mouth every evening OLANZAPINE 25136454354 No Longer Active Alina Castaneda MD PhD Active ALBUTEROL SULFATE (2.5 MG/3ML) 0.083% INHALATION NEBULIZATION SOLUTION one vial per nebulizer TID and PRN cough/soa ALBUTEROL SULFATE 92581027781 No Longer Active Alina Castaneda MD PhD Active GUAIFENESIN ER 600 MG ORAL TABLET EXTENDED RELEASE 12 HOUR 1 tablet by mouth twice daily if needed for cough GUAIFENESIN 00262350456 No Longer Active Marvel MENDOZAP Active AZITHROMYCIN 500 MG INTRAVENOUS SOLUTION RECONSTITUTED 1 po q day AZITHROMYCIN 80620408376 No Longer Active Alina Castaneda MD PhD Active PROMETHAZINE-CODEINE 6.25-10 MG/5ML ORAL SYRUP 1 tsp po q 6 hours prn cough PROMETHAZINE-CODEINE 57455107713 No Longer Active Alina Castaneda MD PhD Active CEFDINIR 300 MG ORAL CAPSULE by mouth twice a day CEFDINIR 28457814068 No Longer Active Alina Castaneda MD PhD Active METFORMIN HCL ER 500 MG ORAL TABLET EXTENDED RELEASE 24 HOUR Take 3 tablets by mouth everyday METFORMIN HCL 63772661256 No Longer Active Alina Castaneda MD PhD Active LEVEMIR 100 UNIT/ML SUBCUTANEOUS SOLUTION 90 units SQ qHS INSULIN DETEMIR 11050902513 No Longer Active Marvel MARROQUIN Active TOPROL XL 100 MG ORAL TABLET EXTENDED RELEASE 24 HOUR 1 @ HS METOPROLOL SUCCINATE 10975405050 No Longer Active Marvel MARROQUIN Active ALLOPURINOL 300 MG ORAL TABLET Take one by mouth daily ALLOPURINOL 16057110317 Active Mima Erazo APPLIANCE COUNSELOR Active ZYPREXA 10 MG ORAL TABLET Take one by mouth daily OLANZAPINE 39782764662 No Longer Active Alina Castaneda MD PhD Active NOVOLOG 100 UNIT/ML SUBCUTANEOUS SOLUTION 40 units with every meal INSULIN ASPART 28975463511 No Longer Active Alina Castaneda MD PhD Active VERAPAMIL HCL ER 120 MG ORAL TABLET EXTENDED RELEASE 1 qPM 09/08 VERAPAMIL HCL 44383022017 No Longer Active Salina ROJAS Active ZYPREXA 15 MG ORAL TABLET Take 1 tablet by mouth daily OLANZAPINE 75097419379 No Longer Active Marvel MARROQUIN Active ALBUTEROL SULFATE (2.5 MG/3ML) 0.083% INHALATION NEBULIZATION SOLUTION 1 neb tid and prn cough ALBUTEROL SULFATE 19648348052 No Longer Active Alina Castaneda MD PhD Active LANTUS 100 UNIT/ML SUBCUTANEOUS SOLUTION 60 units sq q hs INSULIN GLARGINE 84865546982 No Longer Active CRYSTAL Suarez Active ACETAMINOPHEN 500 MG ORAL TABLET 2 Q 6 hr. PRN ACETAMINOPHEN 500 MG ORAL TABLET 594122 ACETAMINOPHEN Inactive ALBUTEROL SULFATE (2.5 MG/3ML) 0.083% INHALATION NEBULIZATION SOLUTION one vial per nebulizer TID and PRN cough/soa ALBUTEROL SULFATE (2.5 MG/3ML) 0.083% INHALATION NEBULIZATION SOLUTION 068569 ALBUTEROL SULFATE Inactive ALBUTEROL SULFATE (2.5 MG/3ML) 0.083% INHALATION NEBULIZATION SOLUTION 1 neb tid and prn cough ALBUTEROL SULFATE (2.5 MG/3ML) 0.083% INHALATION NEBULIZATION SOLUTION 297988 ALBUTEROL SULFATE Inactive AMOXICILLIN 500 MG ORAL CAPSULE 2 po BID x 10 days AMOXICILLIN 500 MG ORAL CAPSULE 484921 AMOXICILLIN Inactive COLACE 100 MG ORAL CAPSULE 1 pill by mouth twice daily, for constipation 2014 COLACE 100 MG ORAL CAPSULE 4589927 DOCUSATE SODIUM Inactive CYCLOBENZAPRINE HCL 10 MG ORAL TABLET 1/2 tablet by mouth every 8 hours as needed for muscle spasms CYCLOBENZAPRINE HCL 10 MG ORAL TABLET 702236 CYCLOBENZAPRINE HCL Inactive CYCLOBENZAPRINE HCL 10 MG ORAL TABLET 1 tablet by mouth three times daily, scheduled CYCLOBENZAPRINE HCL 10 MG ORAL TABLET 012817 CYCLOBENZAPRINE HCL Inactive DOXEPIN HCL 10 MG ORAL CAPSULE Take 1 tablet by mouth daily DOXEPIN HCL 10 MG ORAL CAPSULE 1984961 DOXEPIN HCL Inactive IBUPROFEN 200 MG ORAL TABLET 1 Q 6 hr. PRN IBUPROFEN 200 MG ORAL TABLET 905681 IBUPROFEN Inactive IMODIUM A-D 2 MG ORAL TABLET 1 tab QID as needed IMODIUM A-D 2 MG ORAL TABLET 846731 LOPERAMIDE HCL Inactive KEFLEX 500 MG ORAL CAPSULE 1 po BID x 7 days KEFLEX 500 MG ORAL CAPSULE 386543 CEPHALEXIN Inactive LISINOPRIL 20 MG ORAL TABLET 1 BID LISINOPRIL 20 MG ORAL TABLET 591028 LISINOPRIL Inactive LOMOTIL 2.5-0.025 MG ORAL TABLET take 1-2 tabs PO after each stool, no more than 8 in 24 hours LOMOTIL 2.5-0.025 MG ORAL TABLET 7867242 DIPHENOXYLATE-ATROPINE Inactive NAVANE 10 MG CAPS 1/2 [...] PENICILLIN V POTASSIUM 500 MG ORAL TABLET 328463 PENICILLIN V POTASSIUM Inactive PROMETHAZINE-CODEINE 6.25-10 MG/5ML ORAL SYRUP 1 tsp po q 6 hours prn cough PROMETHAZINE-CODEINE 6.25-10 MG/5ML ORAL SYRUP 048093 PROMETHAZINE-CODEINE Inactive THIOTHIXENE 5 MG ORAL CAPSULE by mouth twice a day THIOTHIXENE 5 MG ORAL CAPSULE 011695 THIOTHIXENE Inactive TRAZODONE HCL 100 MG ORAL TABLET 1 tab by mouth for sleep TRAZODONE HCL 100 MG ORAL TABLET 544501 TRAZODONE HCL Inactive TRAZODONE HCL 100 MG ORAL TABLET 1 every night to prevent headaches TRAZODONE HCL 100 MG ORAL TABLET 952361 TRAZODONE HCL Inactive ZOFRAN 4 MG ORAL TABLET 1 po q4hr PRN Nausea ZOFRAN 4 MG ORAL TABLET 047357 ONDANSETRON HCL Inactive ACYCLOVIR 400 MG ORAL TABLET 1 pill three times daily x 5 days, for cold sore outbreak ACYCLOVIR 400 MG ORAL TABLET 339866 ACYCLOVIR Inactive FLUVOXAMINE MALEATE 100 MG ORAL TABLET take one tab every AM et HS, and take 1 /2 tab at noon FLUVOXAMINE MALEATE 100 MG ORAL TABLET 179137 FLUVOXAMINE MALEATE Inactive FLUVOXAMINE MALEATE 100 MG ORAL TABLET Take 1/2 tab at noon 03/04 FLUVOXAMINE MALEATE 100 MG ORAL TABLET 862971 FLUVOXAMINE MALEATE Inactive FLUVOXAMINE MALEATE 100 MG ORAL TABLET Take one (1) tablet by mouth am, 1/2 at noon FLUVOXAMINE MALEATE 100 MG ORAL TABLET 936619 FLUVOXAMINE MALEATE Inactive FLUVOXAMINE MALEATE 50 MG ORAL TABLET 1 tab by mouth daily 04/01 FLUVOXAMINE MALEATE 50 MG ORAL TABLET 124074 FLUVOXAMINE MALEATE Inactive ZOLPIDEM TARTRATE 10 MG ORAL TABLET take at bedtime ZOLPIDEM TARTRATE 10 MG ORAL TABLET 829018 ZOLPIDEM TARTRATE Inactive VERAPAMIL HCL ER 120 MG ORAL TABLET EXTENDED RELEASE 1 qPM 09/08 VERAPAMIL HCL ER 120 MG ORAL TABLET EXTENDED RELEASE VERAPAMIL HCL Inactive MORPHINE SULFATE ER 30 MG ORAL TABLET EXTENDED RELEASE Take one capsule BID MORPHINE SULFATE ER 30 MG ORAL TABLET EXTENDED RELEASE MORPHINE SULFATE Inactive VERAPAMIL HCL ER 180 MG ORAL TABLET EXTENDED RELEASE 1 pill by mouth twice daily, for migraine prevention VERAPAMIL HCL ER 180 MG ORAL TABLET EXTENDED RELEASE VERAPAMIL HCL Inactive AMARYL 2 MG ORAL TABLET give 2.5 tabs PO daily AMARYL 2 MG ORAL TABLET 551289 GLIMEPIRIDE Inactive HUMALOG 100 UNIT/ML SUBCUTANEOUS SOLUTION Take 20 units with breakfast, 10u with lunch and suppetr. HUMALOG 100 UNIT/ML SUBCUTANEOUS SOLUTION INSULIN LISPRO (HUMAN) Inactive ZYPREXA 5 MG ORAL TABLET take one tablet by mouth every evening ZYPREXA 5 MG ORAL TABLET 715947 OLANZAPINE Inactive ZYPREXA 7.5 MG ORAL TABLET 1 at HS ZYPREXA 7.5 MG ORAL TABLET 335434 OLANZAPINE Inactive ZYPREXA 10 MG ORAL TABLET Take one by mouth daily ZYPREXA 10 MG ORAL TABLET 645150 OLANZAPINE Inactive BD INSULIN SYRINGE 28G X 1/2" 1 ML 1 four times per day BD INSULIN SYRINGE 28G X 1/2" 1 ML INSULIN SYRINGE-NEEDLE U-100 Inactive TOPAMAX 25 MG ORAL TABLET 1 tab BID PRN TOPAMAX 25 MG ORAL TABLET 373024 TOPIRAMATE Inactive AZITHROMYCIN 500 MG INTRAVENOUS SOLUTION RECONSTITUTED 1 po q day AZITHROMYCIN 500 MG INTRAVENOUS SOLUTION RECONSTITUTED 08899028890 AZITHROMYCIN Inactive QUETIAPINE FUMARATE 25 MG ORAL TABLET 2 tabs BID QUETIAPINE FUMARATE 25 MG ORAL TABLET 907192 QUETIAPINE FUMARATE Inactive QUETIAPINE FUMARATE 100 MG ORAL TABLET 1 tab PO at HS QUETIAPINE FUMARATE 100 MG ORAL TABLET 297924 QUETIAPINE FUMARATE Inactive SEROQUEL 25 MG ORAL TABLET Take two tabs by mouth in the morning, take 4 tablets at night SEROQUEL 25 MG ORAL TABLET 275086 QUETIAPINE FUMARATE Inactive SEROQUEL 100 MG ORAL TABLET 1 tab daily SEROQUEL 100 MG ORAL TABLET 371738 QUETIAPINE FUMARATE Inactive EFFEXOR XR 150 MG ORAL CAPSULE EXTENDED RELEASE 24 HOUR 1 tab daily EFFEXOR XR 150 MG ORAL CAPSULE EXTENDED RELEASE 24 HOUR VENLAFAXINE HCL Inactive BACTROBAN 2 % EXTERNAL CREAM Apply to affected area BID for up to 10 days BACTROBAN 2 % EXTERNAL CREAM 569365 MUPIROCIN CALCIUM Inactive BACTROBAN 2 % EXTERNAL CREAM apply to ear and nose twice daily BACTROBAN 2 % EXTERNAL CREAM 646317 MUPIROCIN CALCIUM Inactive CEFDINIR 300 MG ORAL CAPSULE by mouth twice a day CEFDINIR 300 MG ORAL CAPSULE 928282 CEFDINIR Inactive TOLTERODINE TARTRATE 2 MG ORAL TABLET 1 pill twice daily, for bladder TOLTERODINE TARTRATE 2 MG ORAL TABLET 548718 TOLTERODINE TARTRATE Inactive MIRALAX ORAL POWDER 17g by mouth q12h, for constipation MIRALAX ORAL POWDER 256744 POLYETHYLENE GLYCOL 3350 Inactive ZYPREXA 15 MG ORAL TABLET Take 1 tablet by mouth daily ZYPREXA 15 MG ORAL TABLET 871322 OLANZAPINE Inactive METFORMIN HCL ER 500 MG [...] for pain HYDROCODONE-ACETAMINOPHEN 5-325 MG ORAL TABLET 984764 HYDROCODONE-ACETAMINOPHEN Inactive HYDROCODONE-ACETAMINOPHEN 5-325 MG ORAL TABLET take one tablet by mouth every four hours as needed for pain HYDROCODONE-ACETAMINOPHEN 5-325 MG ORAL TABLET 972953 HYDROCODONE-ACETAMINOPHEN Inactive HYDROCODONE-ACETAMINOPHEN 7.5-325 MG ORAL TABLET 1 four times a day as needed for pain HYDROCODONE-ACETAMINOPHEN 7.5-325 MG ORAL TABLET 206223 HYDROCODONE-ACETAMINOPHEN Inactive [facility] MILK OF MAGNESIA 400 MG/5ML ORAL SUSPENSION 30ml by mouth bid prn [facility] MILK OF MAGNESIA 400 MG/5ML ORAL SUSPENSION MAGNESIUM HYDROXIDE Inactive TYLENOL 8 HOUR 650 MG ORAL [...] days FLUTICASONE PROPIONATE 50 MCG/ACT NASAL SUSPENSION 0911446 FLUTICASONE PROPIONATE Inactive AMITIZA 24 MCG ORAL [...] (for triglycerides) LOVAZA 1 GM ORAL CAPSULE [id number] ETHYL ESTERS Inactive NOVOFINE 32G X 6 [...] MG ORAL TABLET 19901024 MELATONIN Inactive [facility] MELATONIN 3 MG ORAL TABLET 1 tab nightly [facility] MELATONIN 3 MG ORAL TABLET 19901024 MELATONIN Inactive TERESE CONTOUR TEST IN VITRO STRIP monitor blood sugars 3x/day TERESE CONTOUR TEST IN VITRO STRIP GLUCOSE BLOOD Inactive SAPHRIS 5 MG SUBLINGUAL TABLET SUBLINGUAL by mouth twice a day SAPHRIS 5 MG SUBLINGUAL TABLET SUBLINGUAL ASENAPINE MALEATE Inactive TAMSULOSIN HCL 0.4 MG ORAL CAPSULE give 2 capsules PO each evening TAMSULOSIN HCL 0.4 MG ORAL CAPSULE 770222 TAMSULOSIN HCL Inactive [facility] LUBRICANT EYE DROPS 0.4-0.3 % OPHTHALMIC SOLUTION [facility] LUBRICANT EYE DROPS 0.4-0.3 % OPHTHALMIC SOLUTION POLYETHYL GLYCOL- PROPYL GLYCOL Inactive VITAMIN D 2000 UNIT ORAL CAPSULE Take one by mouth daily VITAMIN D 2000 UNIT ORAL CAPSULE CHOLECALCIFEROL Inactive LATUDA 40 MG ORAL TABLET 1.5 tab by mouth in the afternoon 05/23 LATUDA 40 MG ORAL TABLET LURASIDONE HCL Inactive TRUEPLUS LANCETS 30G 3x a day TRUEPLUS LANCETS 30G [id number] LANCETS Inactive TRUEPLUS LANCETS 30G 3 a day TRUEPLUS LANCETS 30G [id number] LANCETS Inactive EQL TRUETEST TEST IN VITRO [...] FLONASE ALLERGY RELIEF 50 MCG/ACT NASAL SUSPENSION 0911445 FLUTICASONE PROPIONATE Inactive Immunizations Vaccine Administration Date [...] Fluvirin, Fluarix, Agriflu(>=18 yo)) Fluzone (>3 yrs.) [XJR007] Influenza, seasonal, injectable pneumococcal immunization administered Pneumovax 23 [CVX33] pneumococcal polysaccharide vaccine, 23 valent Vital Signs Date Name Value Unit Range Description blood pressure, diastolic, repeated by physician 89 [...] ... - Chemistry sodium, serum 135 mmol/L 875-439 7410/08/22 carbon dioxide, venous blood 28.4 mmol/L 21.0-32.0 [...] mg/g {creat} 0-29 cholesterol, serum 263 mg/dL 947-510 1934/08/22 triglyceride, serum, fasting 1312 mg/dL 30-200 HDL [...] ordered Encounters Code Encounter Date Provider Facility CPT-19369 [id number] Vst-Est Level IV 15:10:01 HEAD OF SALES Mason Loredo MD [facility] CPT-09033 [id number] Vst-Est Level III 11:00:25 CDT Shavonne Feliciano PA-C [facility] CPT-22597 Level 3 Est. Patient 09:12:14 HEAD OF SALES Mima Erazo [facility] CPT-63102 Level 3 Est. Patient 16:52:51 CDT Vanessa Hickey MD [facility] CPT-76706 Level 3 Est. Patient 17:40:16 CDT Mima Erazo [facility] CPT-82459 Level 3 Est. Patient 14:34:52 CDT Vanessa Hickey MD [facility] CPT-54936 Level 3 Est. Patient 16:27:51 CDT Mima Erazo [facility] CPT-85192 Level 3 Est. Patient 14:39:00 HEAD OF SALES Vanessa Hickey MD [facility] CPT-30267 Level 2 Est. Patient 18:43:34 CDT Mima Erazo [facility] CPT-47798 Level 3 Est. Patient 16:22:09 CDT Cherelle Avila [facility] CPT-80066 Level 4 Est. Patient 17:55:14 CDT Mimacecily Erazo [facility] CPT-26315 Level 2 Est. Patient 17:13:21 CDT Alina Castaneda MD [facility]-09572 Level 3 Est. Patient 14:46:15 CDT Vanessa Hickey MD [facility]-19225 Level 3 Est. Patient 09:34:56 CDT Alina Castaneda MD [facility]28043 Level 3 Est. Patient 21:40:19 CDT Mima Erazo [facility]-30543 Level 3 Est. Patient 09:26:40 CDT Marvel Charles [facility]-88805 Level 3 Est. Patient 12:36:43 CDT Vanessa Hickey MD [facility]-07705 Level 3 Est. Patient 12:57:49 CDT Vanessa Hickey MD [facility]-41445 Level 3 Est. Patient 00:28:25 CDT Alina Castaneda MD [facility]08347 Level 2 Est. Patient 12:52:14 CDT Alina Castaneda MD [facility]-35453 Level 3 Est. Patient 11:51:18 HEAD OF SALES Alina Castaneda MD [facility]-56559 Level 3 Est. Patient 10:09:22 HEAD OF SALES Alina Castaneda MD [facility]52529 Level 3 Est. Patient 14:36:26 HEAD OF SALES Marvel Charles [facility]07768 Level 3 Est. Patient 13:34:47 HEAD OF SALES Alina Castaneda MD [facility]-17491 Level 3 Est. Patient 19:52:08 HEAD OF SALES Alina Castaneda MD [facility]-40983 Level 3 Est. Patient 10:01:51 HEAD OF SALES Marvel Araceli [facility]-73803 Level 3 Est. Patient 21:54:06 CDT Vanessa Hickey MD [facility]-62095 Level 3 Est. Patient 08:54:46 CDT Alina Castaneda MD [facility]-01994 Level 3 Est. Patient 09:32:11 CDT Marvel Charles [facility]-66302 Level 3 Est. Patient 12:02:49 CDT Alina Castaneda MD [facility]-86530 Level 3 Est. Patient 19:17:33 CDT Alina Castaneda MD [facility]-31819 Level 3 Est. Patient 13:19:10 CDT Marvel Charles [facility]-80826 Level 3 Est. Patient 08:20:05 CDT Alina Castaneda MD [facility]-37427 Level 3 Est. Patient 15:17:18 CDT Alina Castaneda MD [facility]-30032 Level 3 Est. Patient 14:25:36 HEAD OF SALES [place] Araceli [facility]-95664 Level 3 Est. Patient 10:09:15 HEAD OF SALES [place] Araceli [facility] CPT-12770 Level 3 Est. Patient 21:28:43 CDT Alina Castaneda MD [facility]-25484 Level 3 Est. Patient 15:20:11 CDT Marvel Charles [facility]-55484 Level 4 Est. Patient 19:08:12 CDT Alina Castaneda MD [facility]-23604 Level 3 Est. Patient 15:06:39 CDT Marvel Charles [facility]-93779 Level 4 Est. Patient 17:48:15 CDT Alina Castaneda MD [facility]-22212 Level 3 Est. Patient 14:53:49 CDT Alina Castaneda MD [facility]-78306 Level 3 Est. Patient 09:35:16 CDT Alina Castaneda MD [facility]-12653 Level 3 Est. Patient 12:23:22 CDT Alina Castaneda MD [facility]-51705 Level 3 Est. Patient 16:19:15 CDT Alina Castaneda MD [facility]-02506 Level 3 Est. Patient 21:39:56 HEAD OF SALES Alina Castaneda MD [facility]-05002 Level 4 Est. Patient 14:12:56 HEAD OF SALES Alina Castaneda MD [facility]-46627 Level 2 Est. Patient 15:34:57 HEAD OF SALES Alina Castaneda MD [facility]-40031 Level 3 Est. Patient 12:17:04 HEAD OF SALES Alina Castaneda MD [facility]-02071 Level 3 Est. Patient 09:18:18 HEAD OF SALES Marvel Charles [facility]-87393 Level 2 Est. Patient 21:50:24 CDT Alina Castaneda MD [facility]-18841 Level 3 Est. Patient 09:17:28 CDT Marvel Charles [facility]-63057 Level 4 Est. Patient 18:54:02 CDT Alina Castaneda MD [facility] CPT-43177 Level 3 Est. Patient 10:47:10 CDT Alina Castaneda MD [facility] CPT-88496 Level 3 Est. Patient 09:22:20 CDT Marvel Thurstonestela [facility] CPT-81220 Level 3 Est. Patient 16:39:43 CDT Marvel Thurstonestela [facility] CPT-18613 Level 3 Est. Patient 16:05:16 CDT Alina Castaneda MD [facility] CPT-37530 Level 3 Est. Patient 00:29:15 CDT Alina Castaneda MD [facility]-42633 Level 3 Est. Patient 10:49:22 HEAD OF SALES Marvel Thurstonestela [facility] CPT-55932 Level 3 Est. Patient 21:30:19 HEAD OF SALES Alina Castaneda MD PhD [facility] CPT-83822 Level 4 Est. Patient 17:04:11 HEAD OF SALES [place] Thurstonestela [facility] CPT-35163 Level 3 Est. Patient 15:34:11 [facility]ES [facility]44777 Level 2 Est. Patient 12:51:58 HEAD OF SALES Alina Castaneda MD PhD [facility] CPT-69816 Level 3 Est. Patient 13:20:01 HEAD OF SALES Alnia Castaneda MD PhD [facility] CPT-92515 Level 3 Est. Patient 09:23:35 CDT Alina Castaneda MD PhD [facility] Procedures Code Procedure Name Date Entry Date Standard Description CPT-99457 Level 2 Care Home 14:06:10 HEAD OF SALES CPT-G0439 [facility] Annual Wellness Exam 15:49:52 HEAD OF SALES CPT-65933 Level 3 Care Home 13:20:19 CDT CPT-TCMM Transitional Care Mgmt-Moderate 12:32:19 CDT CPT-00259 Level 2 Care Home 09:01:11 CDT CPT-89422 HGBA1C - LAB USE ONLY 09:30:27 HEAD OF SALES CPT-02089 BMP - LAB USE ONLY 09:30:27 HEAD OF SALES CPT-24056 Venipuncture Draw Fee 09:30:26 HEAD OF SALES CPT-TCMM Transitional Care Mgmt-Moderate 10:25:31 CDT CPT-99963 Bladder Scan 14:34:53 CDT CPT-46653 Bladder Scan 14:39:01 HEAD OF SALES CPT-TCMM Transitional Care Mgmt-Moderate 10:30:19 HEAD OF SALES CPT-45936 Bladder Scan 12:36:44 CDT CPT-08026 Bladder Scan 21:54:06 CDT CPT-G0008 Administration of Influenza Virus Vaccine 13:05:26 CDT CPT-11433 Fluzone Quadrivalent Intramuscular Suspension 0.5 ML 13: 05:26 CDT CPT-37417 Administration single or combination vaccine inc oral 11 :49:51 CDT CPT-60832 Pneumovax 11:49:51 CDT CPT-68472 Ribs unilateral 2V 12:37:22 HEAD OF SALES CPT-81848 Chest 2V Frontal and Lat 17:15:26 CDT CPT-45975 Abx/Therapy Injection 18:54:02 CDT CPT-J0696 Rocephin 1000 mg (Ceftriaxone) 16:00:32 CDT CPT-36450 Chest 2V Frontal and Lat 15:26:45 CDT CPT-07315 Chest 2V Frontal and Lat 10:23:27 CDT CPT-89803 Venipuncture Draw Fee 10:11:00 CDT CPT-27466 Administration single or combination vaccine inc oral 11 :56:38 CDT CPT-45946 Influenza split virus > age 3 11:56:38 CDT CPT-39481 Venipuncture Draw Fee 08:49:54 HEAD OF SALES CPT-27683 EKG Trac and Interp 17:54:19 HEAD OF SALES
--- OUTSIDE RECORDS SUMMARY | 2018-07-02 14:53 | XMS REPORT | Clinical Summary ---
Author Author Admin, MIKEE Organization [facility] Address Unknown Phone Unavailable Allergies, Adverse Reactions, 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 Erazo [employer]AT WORKER Benign paroxysmal positional vertigo Vertigo, benign paroxysmal position 386.11 Inactive Mima Erazo [employer] WORK[employer] Benign paroxysmal positional vertigo High-risk sexual behavior [...] by mouth once daily POLYETHYLENE GLYCOL 3350 82727558211 Active Cherelle Souza RN Active CLONAZEPAM 1 MG ORAL TABLET 1 tablet by mouth three times daily CLONAZEPAM 39822856654 Active Cherelle Souza RN Active MIRALAX ORAL POWDER 17g by mouth q12h, for constipation POLYETHYLENE GLYCOL 3350 08038812044 No Longer Active Cherelle Souza RN Active LACTOBACILLUS ORAL TABLET 1 tablet by mouth at bedtime for probiotic LACTOBACILLUS 25990208506 Active Cherelle Souza RN Active D 2000 2000 UNIT ORAL TABLET 1 tablet by mouth twice daily CHOLECALCIFEROL 88145675451 Active Cherelle Souza RN Active DIVALPROEX SODIUM ER 500 MG ORAL TABLET EXTENDED RELEASE 24 HOUR 3 tablets by mouth at bedtime for Mood DIVALPROEX SODIUM 61987980933 Active Cherelle Souza RN Active GLIMEPIRIDE 4 MG ORAL TABLET 1 tablet by mouth once daily GLIMEPIRIDE 27518300707 Active Cherelle Souza RN Active VENLAFAXINE HCL ER 150 MG ORAL CAPSULE EXTENDED RELEASE 24 HOUR 1 tablet by mouth once daily VENLAFAXINE HCL 48707902313 Active Cherelle Souza RN Active RISPERDAL 2 MG ORAL TABLET Take 1 tablet by mouth three times a day RISPERIDONE 47666852515 Active Mya Ledezma MA Active [facility] MILK OF MAGNESIA 400 MG/5ML ORAL SUSPENSION 30ml by mouth bid prn MAGNESIUM HYDROXIDE 17531291780 No Longer Active Mya Ledezma MA Active [facility] MELATONIN 3 MG ORAL TABLET 1 tab nightly MELATONIN 37773446853 No Longer Active Mya Ledezma MA Active AMBIEN 10 MG ORAL TABLET 1 at night as needed for sleep ZOLPIDEM TARTRATE 58221961007 Active Mason Loredo MD Active VERAPAMIL HCL ER 180 MG ORAL TABLET EXTENDED RELEASE 1 pill by mouth twice daily, for migraine prevention VERAPAMIL HCL 52705113533 No Longer Active Mason Loredo MD Active EFFEXOR XR 150 MG ORAL CAPSULE EXTENDED RELEASE 24 HOUR 1 tab daily VENLAFAXINE HCL 32125546751 No Longer Active Mason Loredo MD Active TOPAMAX 25 MG ORAL TABLET 1 tab BID PRN TOPIRAMATE 21878394032 No Longer Active Mason Lroedo MD Active LATUDA 40 MG ORAL TABLET 1.5 tab by mouth in the afternoon 05/23 LURASIDONE HCL 08430008108 No Longer Active Mason Loredo MD Active QUETIAPINE FUMARATE 100 MG ORAL TABLET 1 tab PO at HS QUETIAPINE FUMARATE 99303545055 No Longer Active Mason Loredo MD Active QUETIAPINE FUMARATE 25 MG ORAL TABLET 2 tabs BID QUETIAPINE FUMARATE 29318177759 No Longer Active Mason Loredo MD Active ATORVASTATIN CALCIUM 10 MG ORAL TABLET Take 1 tablet by mouth daily. Recheck labs in 3 months ATORVASTATIN CALCIUM 64002257759 Active Mya Ledezma MA Active VERAPAMIL HCL ER 180 MG ORAL TABLET EXTENDED RELEASE 1 tab BID VERAPAMIL HCL 54373073322 Active Shavonne Feliciano PA-C Active SEROQUEL 25 MG ORAL TABLET Take two tabs by mouth in the morning, take 4 tablets at night QUETIAPINE FUMARATE 22032720131 No Longer Active Shavonne Feliciano PA-C Active AMARYL 2 MG ORAL TABLET give 2.5 tabs PO daily GLIMEPIRIDE 96305452122 No Longer Active Shavonne Feliciano PA-C Active FENOFIBRATE 145 MG ORAL TABLET 1 tab PO in the morning FENOFIBRATE 70940999369 Active Shavonne Feliciano PA-C Active SEROQUEL 100 MG ORAL TABLET 1 tab daily QUETIAPINE FUMARATE 57951418967 No Longer Active Shavonne Feliciano PA-C Active [facility] MELATONIN 3 MG ORAL TABLET give 1 tab by mouth at HS MELATONIN 89801243796 No Longer Active Gabrielle Marquez MA Active NOVOLOG FLEXPEN 100 UNIT/ML SUBCUTANEOUS SOLUTION PEN-INJECTOR sliding scale INSULIN ASPART 64596338588 Active Gabrielle Marquez MA Active METFORMIN HCL 1000 MG ORAL TABLET 1 tab by mouth BID METFORMIN HCL 87070379453 Active Gabrielleadrienne Marquez MA Active TAMSULOSIN HCL 0.4 MG ORAL CAPSULE give 2 capsules PO each evening TAMSULOSIN HCL 86901650588 No Longer Active Gabrielleadrienne Marquez MA Active VITAMIN D 2000 UNIT ORAL CAPSULE Take one by mouth daily CHOLECALCIFEROL 12146418623 No Longer Active Gabrielleadrienne Marquez MA Active LEVEMIR 100 UNIT/ML SUBCUTANEOUS SOLUTION 10 u at bedtime INSULIN DETEMIR 10901552249 Active Gabrielle Littleananda NOEL Active TAMSULOSIN HCL 0.4 MG ORAL CAPSULE 2 every night for urine flow TAMSULOSIN HCL 79119281162 Active Gabrielle Sidneyananda NOEL Active ALIGN 4 MG ORAL CAPSULE 1 tab at hs PROBIOTIC PRODUCT 77866737135 No Longer Active Gabrielle Marquez MA Active OCEAN NASAL SPRAY SOLUTION 2 sprays in both nostrils every 8 hours as needed for dry mucous membranes SALINE SOLN 77480786688 Active Mason Loredo MD Active BETHANECHOL CHLORIDE 25 MG ORAL TABLET Take 1 tablet mouth four times a day BETHANECHOL CHLORIDE 13345133741 Active Mason Loredo MD Active [facility] LUBRICANT EYE DROPS 0.4-0.3 % OPHTHALMIC SOLUTION POLYETHYL GLYCOL-PROPYL GLYCOL 05020680900 No Longer Active Mason Loredo MD Active TYLENOL 8 HOUR 650 MG ORAL TABLET EXTENDED RELEASE 1 tab QID prn ACETAMINOPHEN 33503731891 No Longer Active Mason Loredo MD Active TIMOPTIC OCUDOSE 0.5 % OPHTHALMIC SOLUTION instill one drop into both eyes q12H TIMOLOL MALEATE 13160467037 Active Mason Loredo MD Active TRAZODONE HCL 100 MG ORAL TABLET 1 every night to prevent headaches TRAZODONE HCL 43101535284 No Longer Active Mason Loredo MD Active TRAVATAN Z 0.004 % OPHTHALMIC SOLUTION 1 drop each eye daily 2017 TRAVOPROST 47360960745 No Longer Active Mason Loredo MD Active LATUDA 60 MG ORAL TABLET 1 tab daily LURASIDONE HCL 80437258451 No Longer Active Mason Loredo MD Active MORPHINE SULFATE ER 30 MG ORAL TABLET EXTENDED RELEASE Take one capsule BID MORPHINE SULFATE 27181453902 No Longer Active Mason Loredo MD Active TRUE METRIX BLOOD GLUCOSE TEST IN VITRO STRIP Check blood sugars 3x/day. 2015 GLUCOSE BLOOD 42714971908 No Longer Active Mason Loredo MD Active TRUEPLUS LANCETS 30G 3x a day LANCETS 37520398003 No Longer Active Mason Loredo MD Active MYLANTA GAS RELIEF MAXIMUM STR 125 MG ORAL CAPSULE 30cc every 4 hours prn SIMETHICONE 03599113053 No Longer Active Mason Loredo MD Active IMODIUM A-D 2 MG ORAL TABLET 1 tab QID as needed LOPERAMIDE HCL 09213839873 No Longer Active Mason Loredo MD Active FLONASE ALLERGY RELIEF 50 MCG/ACT NASAL SUSPENSION One spray each nostril BID x 1 week then daily FLUTICASONE PROPIONATE 24430732214 No Longer Active Mason Loredo MD Active FLUVOXAMINE MALEATE 100 MG ORAL TABLET take one tab every AM et HS, and take 1 /2 tab at noon FLUVOXAMINE MALEATE 96401349656 No Longer Active Mason Loredo MD Active BD PEN NEEDLE MINI U/F 31G X 5 MM 4 a day INSULIN PEN NEEDLE 80106499825 No Longer Active Mason Loredo MD Active AMITIZA 24 MCG ORAL CAPSULE Take one capsule BID for constipation LUBIPROSTONE 90937058732 No Longer Active Mason Loredo MD Active TRUEPLUS LANCETS 30G 3 a day LANCETS 81796715359 No Longer Active Mason Loredo MD Active CORICIDIN HBP CONGESTION/COUGH 10-200 MG ORAL CAPSULE Take as directed on box as needed for cold/flu symptoms DEXTROMETHORPHAN- GUAIFENESIN 57041384860 No Longer Active Mason Loredo MD Active OMEGA-3 300 MG ORAL CAPSULE 4 caps by mouth daily OMEGA-3 FATTY ACIDS 38028960695 No Longer Active Mason Loredo MD Active HUMALOG KWIKPEN 100 UNIT/ML SUBCUTANEOUS SOLUTION PEN-INJECTOR sliding scale if needed INSULIN LISPRO (HUMAN) 51985807572 No Longer Active Mason Loredo MD Active TRUETEST TEST IN VITRO STRIP check blood sugars 3x/day GLUCOSE BLOOD 36453085124 No Longer Active Mason Loredo MD Active ALFUZOSIN HCL ER 10 MG ORAL TABLET EXTENDED RELEASE 24 HOUR 1 tablet daily ALFUZOSIN HCL 14372797509 No Longer Active Mason Loredo MD Active BD INSULIN SYRINGE 28G X 1/2" 1 ML 1 four times per day INSULIN SYRINGE-NEEDLE U-100 97402968096 No Longer Active Mason Loredo MD Active LEVEMIR FLEXTOUCH 100 UNIT/ML SUBCUTANEOUS SOLUTION PEN-INJECTOR 60 units SQ each evening, for diabetes INSULIN DETEMIR 11234230025 No Longer Active Mason Loredo MD Active LACTULOSE 20 GM/30ML ORAL SOLUTION give 30 Ml PO BID PRN LACTULOSE 71727975952 Active Mason Loredo MD Active COLACE 100 MG ORAL CAPSULE 1 tab BID PRN DOCUSATE SODIUM 05518501666 Active Mason Loredo MD Active LATANOPROST 0.005 % OPHTHALMIC SOLUTION instill 1 drop in both eyes at bed time LATANOPROST 89168004798 Active Mason Loredo MD Active IBUPROFEN 400 MG ORAL TABLET 1 tab Q6H PRN IBUPROFEN 50253305975 Active Mason Loredo MD Active FLUVOXAMINE MALEATE 50 MG ORAL TABLET 1 tab by mouth daily 04/01 FLUVOXAMINE MALEATE 78264256044 No Longer Active Mima Erazo APRN Active TRUE METRIX METER w/Device KIT Check blood sugars 3x/day BLOOD GLUCOSE MONITORING SUPPL 44340823055 Active Marvel Mackenzieglari ASSEMBLER CLIP ON SUNGLASSES Active LATUDA 60 MG ORAL TABLET Take one by mouth daily LURASIDONE HCL 46131690017 No Longer Active Mima Erazo APRN Active TRAVATAN Z 0.004 % OPHTHALMIC SOLUTION 1 gtt each eye daily TRAVOPROST 35062367245 No Longer Active Mason Loredo MD Active LISINOPRIL 20 MG ORAL TABLET 1 BID LISINOPRIL 10465440703 No Longer Active Mason Loredo MD Active ZOLPIDEM TARTRATE 10 MG ORAL TABLET take at bedtime ZOLPIDEM TARTRATE 94893379618 No Longer Active Mason Loredo MD Active HYDROCODONE-ACETAMINOPHEN 5-325 MG ORAL TABLET 2 tabs by mouth three times daily for pain HYDROCODONE-ACETAMINOPHEN 56072842816 No Longer Active Mason Loredo MD Active ZOFRAN 4 MG ORAL TABLET 1 po q4hr PRN Nausea ONDANSETRON HCL 83798700773 No Longer Active Mason Loredo MD Active LOMOTIL 2.5-0.025 MG ORAL TABLET take 1-2 tabs PO after each stool, no more than 8 in 24 hours DIPHENOXYLATE-ATROPINE 85851762861 No Longer Active Mason Loredo MD Active COLACE 100 MG ORAL CAPSULE 1 pill by mouth twice daily, for constipation 2014 DOCUSATE SODIUM 10912038255 No Longer Active Mima Yokum BOAT WORKER Active TOLTERODINE TARTRATE 2 MG ORAL TABLET 1 pill twice daily, for bladder TOLTERODINE TARTRATE 05507374201 No Longer Active Vanessa Hickey MD Active AMITIZA 24 MCG ORAL CAPSULE Take one capsule BID for constipation. LUBIPROSTONE 71783512191 No Longer Active Vanessa Hickey MD Active METOPROLOL SUCCINATE ER 100 MG ORAL TABLET EXTENDED RELEASE 24 HOUR 1 by mouth daily for blood pressure METOPROLOL SUCCINATE 34176025469 No Longer Active Grace Azam RMA Active METFORMIN HCL ER 500 MG ORAL TABLET EXTENDED RELEASE 24 HOUR Take three tablets by mouth everyday METFORMIN HCL 29738625658 No Longer Active Grace Azam RMA Active LOVAZA 1 GM ORAL CAPSULE 4 daily (for triglycerides) [id number] ETHYL ESTERS 35687026551 No Longer Active Grace Azam RMA Active TRAZODONE HCL 100 MG ORAL TABLET 1 tab by mouth for sleep TRAZODONE HCL 03209918316 No Longer Active Grace Azam RMA Active NOVOFINE 32G X 6 MM use one four times per day INSULIN PEN NEEDLE 83799431495 No Longer Active Grace Azam RMA Active BACTROBAN 2 % EXTERNAL CREAM Apply to affected area BID for up to 10 days MUPIROCIN CALCIUM 57077474685 No Longer Active Grace Azam RMA Active KEFLEX 500 MG ORAL CAPSULE 1 po BID x 7 days CEPHALEXIN 18944755342 No Longer Active Cherelle Avila APRN Active FLUVOXAMINE MALEATE 100 MG ORAL TABLET Take one (1) tablet by mouth am, 1/2 at noon FLUVOXAMINE MALEATE 65430443987 No Longer Active Mima Erazo APRN Active FLUVOXAMINE MALEATE 100 MG ORAL TABLET Take 1/2 tab at noon 03/04 FLUVOXAMINE MALEATE 05698561027 No Longer Active Cherelle Avila APRN Active ACCU-CHEK ROSA DEVICE Use device to check blood sugars BLOOD GLUCOSE MONITORING SUPPL 58239507673 No Longer Active Marvel MARROQUIN Active ACCU-CHEK ROSA IN VITRO STRIP use strips with device to check blood sugars 3 times daily GLUCOSE BLOOD 85513704454 No Longer Active Brooksjohn MARROQUIN Active CYCLOBENZAPRINE HCL 10 MG ORAL TABLET 1 tablet by mouth three times daily, scheduled CYCLOBENZAPRINE HCL 85906295064 No Longer Active Alina Castaneda MD PhD Active HUMALOG 100 UNIT/ML SUBCUTANEOUS SOLUTION Take 20 units with breakfast, 10u with lunch and suppetr. INSULIN LISPRO (HUMAN) 74873229222 No Longer Active Alina Castaneda MD PhD Active TRUETEST TEST IN VITRO STRIP check sugars 4x/day GLUCOSE BLOOD 00003826802 No Longer Active Alina Castaneda MD PhD Active MORPHINE SULFATE 30 MG ORAL TABLET 1 pill by mouth twice daily, for pain 2013 MORPHINE SULFATE 87699448229 No Longer Active Mason Loredo MD Active ACYCLOVIR 400 MG ORAL TABLET 1 pill three times daily x 5 days, for cold sore outbreak ACYCLOVIR 02700891886 No Longer Active Alina Castaneda MD PhD Active PENICILLIN V POTASSIUM 500 MG ORAL TABLET 1 pill by mouth three times daily PENICILLIN V POTASSIUM 03533804248 No Longer Active Alina Castaneda MD PhD Active UROXATRAL 10 MG ORAL TABLET EXTENDED RELEASE 24 HOUR Take 1 tablet by mouth daily ALFUZOSIN HCL 50693714656 No Longer Active Alina Casatneda MD PhD Active THIOTHIXENE 5 MG ORAL CAPSULE by mouth twice a day THIOTHIXENE 22695199818 No Longer Active Alina Castaneda MD PhD Active ZYPREXA 7.5 MG ORAL TABLET 1 at HS OLANZAPINE 53295761032 No Longer Active Alina Castaneda MD PhD Active DETROL LA 4 MG ORAL CAPSULE EXTENDED RELEASE 24 HOUR Take 1 tablet by mouth daily TOLTERODINE TARTRATE 51447969708 No Longer Active Alina Castaneda MD PhD Active TERESE CONTOUR TEST IN VITRO STRIP monitor blood sugars 3x/day GLUCOSE BLOOD 43273248357 No Longer Active Alina Castaneda MD PhD Active EQL TRUETEST TEST IN VITRO STRIP Test blood sugar TID GLUCOSE BLOOD 04338009882 No Longer Active Alina Castaneda MD PhD Active FLUTICASONE PROPIONATE 50 MCG/ACT NASAL SUSPENSION 2 sprays each nostril qDay x 30 days FLUTICASONE PROPIONATE 52426767302 No Longer Active Alina Castaneda MD PhD Active IBUPROFEN 200 MG ORAL TABLET 1 Q 6 hr. PRN IBUPROFEN 27913459596 No Longer Active Alina Castaneda MD PhD Active NIACIN ER 500 MG ORAL TABLET EXTENDED RELEASE 4 qHS (for triglycerides) 01/13 NIACIN 92916491019 No Longer Active Alina Castaneda MD PhD Active SAPHRIS 5 MG SUBLINGUAL TABLET SUBLINGUAL by mouth twice a day ASENAPINE MALEATE 59684992263 No Longer Active Maljohn Ziglari ASSEMBLER CLIP ON SUNGLASSES Active ACETAMINOPHEN 500 MG ORAL TABLET 2 Q 6 hr. PRN ACETAMINOPHEN 14655410828 No Longer Active Maliheh Ziglari ASSEMBLER CLIP ON SUNGLASSES Active ORPHENADRINE CITRATE ER 100 MG ORAL TABLET EXTENDED RELEASE 12 HOUR 1 every 12 hr. as needed ORPHENADRINE CITRATE 97208249704 No Longer Active Alina Castaneda MD PhD Active NIACIN ER 500 MG ORAL TABLET EXTENDED RELEASE 2 qHS NIACIN 70908140243 No Longer Active Alina Castaneda MD PhD Active AMOXICILLIN 500 MG ORAL CAPSULE 2 po BID x 10 days AMOXICILLIN 52480607124 No Longer Active Alina Castaneda MD PhD Active HYDROCODONE-ACETAMINOPHEN 7.5-325 MG ORAL TABLET 1 four times a day as needed for pain HYDROCODONE-ACETAMINOPHEN 53284922571 No Longer Active Alina Castaneda MD PhD Active DOXEPIN HCL 10 MG ORAL CAPSULE Take 1 tablet by mouth daily DOXEPIN HCL 95301129961 No Longer Active Salina Han [facility] Active NAVANE 10 MG CAPS 1/2 tablet twice a day THIOTHIXENE No Longer Active Salina Han [facility] Active CYCLOBENZAPRINE HCL 10 MG ORAL TABLET 1/2 tablet by mouth every 8 hours as needed for muscle spasms CYCLOBENZAPRINE HCL 56939610800 No Longer Active Alina Castaneda MD PhD Active BACTROBAN 2 % EXTERNAL CREAM apply to ear and nose twice daily MUPIROCIN CALCIUM 94478320505 No Longer Active Alina Castaneda MD PhD Active HYDROCODONE-ACETAMINOPHEN 5-325 MG ORAL TABLET take one tablet by mouth every four hours as needed for pain HYDROCODONE-ACETAMINOPHEN 84358512777 No Longer Active Alina Castaneda MD PhD Active ZYPREXA 5 MG ORAL TABLET take one tablet by mouth every evening OLANZAPINE 28414520578 No Longer Active Alina Castaneda MD PhD Active ALBUTEROL SULFATE (2.5 MG/3ML) 0.083% INHALATION NEBULIZATION SOLUTION one vial per nebulizer TID and PRN cough/soa ALBUTEROL SULFATE 98913987882 No Longer Active Alina Castaneda MD PhD Active GUAIFENESIN ER 600 MG ORAL TABLET EXTENDED RELEASE 12 HOUR 1 tablet by mouth twice daily if needed for cough GUAIFENESIN 97295098210 No Longer Active Marvel MENDOZAP Active AZITHROMYCIN 500 MG INTRAVENOUS SOLUTION RECONSTITUTED 1 po q day AZITHROMYCIN 76406684764 No Longer Active Alina Castaneda MD PhD Active PROMETHAZINE-CODEINE 6.25-10 MG/5ML ORAL SYRUP 1 tsp po q 6 hours prn cough PROMETHAZINE-CODEINE 25344957969 No Longer Active Alina Castaneda MD PhD Active CEFDINIR 300 MG ORAL CAPSULE by mouth twice a day CEFDINIR 31354218919 No Longer Active Alina Castaneda MD PhD Active METFORMIN HCL ER 500 MG ORAL TABLET EXTENDED RELEASE 24 HOUR Take 3 tablets by mouth everyday METFORMIN HCL 71589766003 No Longer Active Alina Castaneda MD PhD Active LEVEMIR 100 UNIT/ML SUBCUTANEOUS SOLUTION 90 units SQ qHS INSULIN DETEMIR 30004905592 No Longer Active Marvel MARROQUIN Active TOPROL XL 100 MG ORAL TABLET EXTENDED RELEASE 24 HOUR 1 @ HS METOPROLOL SUCCINATE 95849617492 No Longer Active Marvel MARROQUIN Active ALLOPURINOL 300 MG ORAL TABLET Take one by mouth daily ALLOPURINOL 23920741498 Active Mima Erazo BOAT WORKER Active ZYPREXA 10 MG ORAL TABLET Take one by mouth daily OLANZAPINE 11863590380 No Longer Active Alina Castaneda MD PhD Active NOVOLOG 100 UNIT/ML SUBCUTANEOUS SOLUTION 40 units with every meal INSULIN ASPART 05349325542 No Longer Active Alina Castaneda MD PhD Active VERAPAMIL HCL ER 120 MG ORAL TABLET EXTENDED RELEASE 1 qPM 09/08 VERAPAMIL HCL 10543193147 No Longer Active Salina ROJAS Active ZYPREXA 15 MG ORAL TABLET Take 1 tablet by mouth daily OLANZAPINE 76994986845 No Longer Active Marvel MARROQUIN Active ALBUTEROL SULFATE (2.5 MG/3ML) 0.083% INHALATION NEBULIZATION SOLUTION 1 neb tid and prn cough ALBUTEROL SULFATE 87591665756 No Longer Active Alina Castaneda MD PhD Active LANTUS 100 UNIT/ML SUBCUTANEOUS SOLUTION 60 units sq q hs INSULIN GLARGINE 96078723658 No Longer Active CRYSTAL Suarez Active ACETAMINOPHEN 500 MG ORAL TABLET 2 Q 6 hr. PRN ACETAMINOPHEN 500 MG ORAL TABLET 187345 ACETAMINOPHEN Inactive ALBUTEROL SULFATE (2.5 MG/3ML) 0.083% INHALATION NEBULIZATION SOLUTION one vial per nebulizer TID and PRN cough/soa ALBUTEROL SULFATE (2.5 MG/3ML) 0.083% INHALATION NEBULIZATION SOLUTION 118661 ALBUTEROL SULFATE Inactive ALBUTEROL SULFATE (2.5 MG/3ML) 0.083% INHALATION NEBULIZATION SOLUTION 1 neb tid and prn cough ALBUTEROL SULFATE (2.5 MG/3ML) 0.083% INHALATION NEBULIZATION SOLUTION 648716 ALBUTEROL SULFATE Inactive AMOXICILLIN 500 MG ORAL CAPSULE 2 po BID x 10 days AMOXICILLIN 500 MG ORAL CAPSULE 682806 AMOXICILLIN Inactive COLACE 100 MG ORAL CAPSULE 1 pill by mouth twice daily, for constipation 2014 COLACE 100 MG ORAL CAPSULE 2245883 DOCUSATE SODIUM Inactive CYCLOBENZAPRINE HCL 10 MG ORAL TABLET 1/2 tablet by mouth every 8 hours as needed for muscle spasms CYCLOBENZAPRINE HCL 10 MG ORAL TABLET 251663 CYCLOBENZAPRINE HCL Inactive CYCLOBENZAPRINE HCL 10 MG ORAL TABLET 1 tablet by mouth three times daily, scheduled CYCLOBENZAPRINE HCL 10 MG ORAL TABLET 169476 CYCLOBENZAPRINE HCL Inactive DOXEPIN HCL 10 MG ORAL CAPSULE Take 1 tablet by mouth daily DOXEPIN HCL 10 MG ORAL CAPSULE 2947485 DOXEPIN HCL Inactive IBUPROFEN 200 MG ORAL TABLET 1 Q 6 hr. PRN IBUPROFEN 200 MG ORAL TABLET 332320 IBUPROFEN Inactive IMODIUM A-D 2 MG ORAL TABLET 1 tab QID as needed IMODIUM A-D 2 MG ORAL TABLET 598466 LOPERAMIDE HCL Inactive KEFLEX 500 MG ORAL CAPSULE 1 po BID x 7 days KEFLEX 500 MG ORAL CAPSULE 753362 CEPHALEXIN Inactive LISINOPRIL 20 MG ORAL TABLET 1 BID LISINOPRIL 20 MG ORAL TABLET 174528 LISINOPRIL Inactive LOMOTIL 2.5-0.025 MG ORAL TABLET take 1-2 tabs PO after each stool, no more than 8 in 24 hours LOMOTIL 2.5-0.025 MG ORAL TABLET 9463413 DIPHENOXYLATE-ATROPINE Inactive NAVANE 10 MG CAPS 1/2 [...] PENICILLIN V POTASSIUM 500 MG ORAL TABLET 903294 PENICILLIN V POTASSIUM Inactive PROMETHAZINE-CODEINE 6.25-10 MG/5ML ORAL SYRUP 1 tsp po q 6 hours prn cough PROMETHAZINE-CODEINE 6.25-10 MG/5ML ORAL SYRUP 097125 PROMETHAZINE-CODEINE Inactive THIOTHIXENE 5 MG ORAL CAPSULE by mouth twice a day THIOTHIXENE 5 MG ORAL CAPSULE 710464 THIOTHIXENE Inactive TRAZODONE HCL 100 MG ORAL TABLET 1 tab by mouth for sleep TRAZODONE HCL 100 MG ORAL TABLET 981451 TRAZODONE HCL Inactive TRAZODONE HCL 100 MG ORAL TABLET 1 every night to prevent headaches TRAZODONE HCL 100 MG ORAL TABLET 318930 TRAZODONE HCL Inactive ZOFRAN 4 MG ORAL TABLET 1 po q4hr PRN Nausea ZOFRAN 4 MG ORAL TABLET 938370 ONDANSETRON HCL Inactive ACYCLOVIR 400 MG ORAL TABLET 1 pill three times daily x 5 days, for cold sore outbreak ACYCLOVIR 400 MG ORAL TABLET 872854 ACYCLOVIR Inactive FLUVOXAMINE MALEATE 100 MG ORAL TABLET take one tab every AM et HS, and take 1 /2 tab at noon FLUVOXAMINE MALEATE 100 MG ORAL TABLET 089271 FLUVOXAMINE MALEATE Inactive FLUVOXAMINE MALEATE 100 MG ORAL TABLET Take 1/2 tab at noon 03/04 FLUVOXAMINE MALEATE 100 MG ORAL TABLET 676792 FLUVOXAMINE MALEATE Inactive FLUVOXAMINE MALEATE 100 MG ORAL TABLET Take one (1) tablet by mouth am, 1/2 at noon FLUVOXAMINE MALEATE 100 MG ORAL TABLET 538914 FLUVOXAMINE MALEATE Inactive FLUVOXAMINE MALEATE 50 MG ORAL TABLET 1 tab by mouth daily 04/01 FLUVOXAMINE MALEATE 50 MG ORAL TABLET 680859 FLUVOXAMINE MALEATE Inactive ZOLPIDEM TARTRATE 10 MG ORAL TABLET take at bedtime ZOLPIDEM TARTRATE 10 MG ORAL TABLET 017390 ZOLPIDEM TARTRATE Inactive VERAPAMIL HCL ER 120 [...] PO daily AMARYL 2 MG ORAL TABLET 108871 GLIMEPIRIDE Inactive HUMALOG 100 UNIT/ML SUBCUTANEOUS SOLUTION Take 20 units with breakfast, 10u with lunch and suppetr. HUMALOG 100 UNIT/ML SUBCUTANEOUS SOLUTION INSULIN LISPRO (HUMAN) Inactive ZYPREXA 5 MG ORAL TABLET take one tablet by mouth every evening ZYPREXA 5 MG ORAL TABLET 260182 OLANZAPINE Inactive ZYPREXA 7.5 MG ORAL TABLET 1 at HS ZYPREXA 7.5 MG ORAL TABLET 890262 OLANZAPINE Inactive ZYPREXA 10 MG ORAL TABLET Take one by mouth daily ZYPREXA 10 MG ORAL TABLET 993495 OLANZAPINE Inactive BD INSULIN SYRINGE 28G X 1/2" 1 ML 1 four times per day BD INSULIN SYRINGE 28G X 1/2" 1 ML INSULIN SYRINGE-NEEDLE U-100 Inactive TOPAMAX 25 MG ORAL TABLET 1 tab BID PRN TOPAMAX 25 MG ORAL TABLET 793304 TOPIRAMATE Inactive AZITHROMYCIN 500 MG INTRAVENOUS SOLUTION RECONSTITUTED 1 po q day AZITHROMYCIN 500 MG INTRAVENOUS SOLUTION RECONSTITUTED 68662511022 AZITHROMYCIN Inactive QUETIAPINE FUMARATE 25 MG ORAL TABLET 2 tabs BID QUETIAPINE FUMARATE 25 MG ORAL TABLET 879244 QUETIAPINE FUMARATE Inactive QUETIAPINE FUMARATE 100 MG ORAL TABLET 1 tab PO at HS QUETIAPINE FUMARATE 100 MG ORAL TABLET 114173 QUETIAPINE FUMARATE Inactive SEROQUEL 25 MG ORAL TABLET Take two tabs by mouth in the morning, take 4 tablets at night SEROQUEL 25 MG ORAL TABLET 852999 QUETIAPINE FUMARATE Inactive SEROQUEL 100 MG ORAL TABLET 1 tab daily SEROQUEL 100 MG ORAL TABLET 715706 QUETIAPINE FUMARATE Inactive EFFEXOR XR 150 MG ORAL CAPSULE EXTENDED RELEASE 24 HOUR 1 tab daily EFFEXOR XR 150 MG ORAL CAPSULE EXTENDED RELEASE 24 HOUR VENLAFAXINE HCL Inactive BACTROBAN 2 % EXTERNAL CREAM Apply to affected area BID for up to 10 days BACTROBAN 2 % EXTERNAL CREAM 330393 MUPIROCIN CALCIUM Inactive BACTROBAN 2 % EXTERNAL CREAM apply to ear and nose twice daily BACTROBAN 2 % EXTERNAL CREAM 952533 MUPIROCIN CALCIUM Inactive CEFDINIR 300 MG ORAL CAPSULE by mouth twice a day CEFDINIR 300 MG ORAL CAPSULE 022492 CEFDINIR Inactive TOLTERODINE TARTRATE 2 MG ORAL TABLET 1 pill twice daily, for bladder TOLTERODINE TARTRATE 2 MG ORAL TABLET 733574 TOLTERODINE TARTRATE Inactive MIRALAX ORAL POWDER 17g by mouth q12h, for constipation MIRALAX ORAL POWDER 849773 POLYETHYLENE GLYCOL 3350 Inactive ZYPREXA 15 MG ORAL TABLET Take 1 tablet by mouth daily ZYPREXA 15 MG ORAL TABLET 916190 OLANZAPINE Inactive METFORMIN HCL ER 500 MG [...] for pain HYDROCODONE-ACETAMINOPHEN 5-325 MG ORAL TABLET 572547 HYDROCODONE-ACETAMINOPHEN Inactive HYDROCODONE-ACETAMINOPHEN 5-325 MG ORAL TABLET take one tablet by mouth every four hours as needed for pain HYDROCODONE-ACETAMINOPHEN 5-325 MG ORAL TABLET 669546 HYDROCODONE-ACETAMINOPHEN Inactive HYDROCODONE-ACETAMINOPHEN 7.5-325 MG ORAL TABLET 1 four times a day as needed for pain HYDROCODONE-ACETAMINOPHEN 7.5-325 MG ORAL TABLET 574012 HYDROCODONE-ACETAMINOPHEN Inactive [facility] MILK OF MAGNESIA 400 [...] days FLUTICASONE PROPIONATE 50 MCG/ACT NASAL SUSPENSION [id number] FLUTICASONE PROPIONATE Inactive AMITIZA 24 MCG ORAL [...] (for triglycerides) LOVAZA 1 GM ORAL CAPSULE 780011 [id number] ETHYL ESTERS Inactive NOVOFINE 32G X 6 [...] evening TAMSULOSIN HCL 0.4 MG ORAL CAPSULE 037010 TAMSULOSIN HCL Inactive [facility] LUBRICANT EYE DROPS [...] 30G 3x a day TRUEPLUS LANCETS 30G [id number] LANCETS Inactive TRUEPLUS LANCETS 30G 3 a day TRUEPLUS LANCETS 30G [id number] LANCETS Inactive EQL TRUETEST TEST IN VITRO [...] FLONASE ALLERGY RELIEF 50 MCG/ACT NASAL SUSPENSION 0324650 FLUTICASONE PROPIONATE Inactive Immunizations Vaccine Administration Date [...] Fluvirin, Fluarix, Agriflu(>=18 yo)) Fluzone (>3 yrs.) [OBI821] Influenza, seasonal, injectable pneumococcal immunization administered Pneumovax [...] ... - Chemistry sodium, serum 135 mmol/L 054-724 2455/08/22 carbon dioxide, venous blood 28.4 mmol/L 21.0-32.0 [...] mg/g {creat} 0-29 cholesterol, serum 263 mg/dL 868-210 5028/08/22 triglyceride, serum, fasting 1312 mg/dL 30-200 HDL [...] 80 mg/L 0-19 Office Visit: TCM from half-way - Lab PSA (prostate specific antigent), recommendation and action PSA ordered Encounters Code Encounter Date Provider Facility CPT-69073 [id number] Vst-Est Level IV 15:10:01 HUMAN FACTORS SPECIALIST Mason Loredo MD [facility] CPT-18875 21530-[id number] Vst-Est Level III 11:00:25 CDT Shavonne Feliciano PA-C [facility] CPT-72695 Level 3 Est. Patient 09:12:14 HUMAN FACTORS SPECIALIST Mima Erazo [facility] CPT-85854 Level 3 Est. Patient 16:52:51 CDT Vanessa Hickey MD [facility] CPT-48515 Level 3 Est. Patient 17:40:16 CDT Mima Erazo [facility] [place] CPT-59239 Level 3 Est. Patient 14:34:52 CDT Vanessa Hickey MD [facility] CPT-67437 Level 3 Est. Patient 16:27:51 CDT Mima Erazo [facility] CPT-53344 Level 3 Est. Patient 14:39:00 HUMAN FACTORS SPECIALIST Vanessa Hickey MD [facility] CPT-83514 Level 2 Est. Patient 18:43:34 CDT Mima Erazo [facility] [facility] CPT-95092 Level 3 Est. Patient 16:22:09 CDT Cherelle Avila [facility] CPT-26624 Level 4 Est. Patient 17:55:14 CDT Mimacecily Erazo [facility] CPT-80798 Level 2 Est. Patient 17:13:21 CDT Alina Castaneda MD [facility]-62026 Level 3 Est. Patient 14:46:15 CDT Vanessa Hickey MD [facility]-92223 Level 3 Est. Patient 09:34:56 CDT Alina Cast[facility]eda [facility]33056 Level 3 Est. Patient 21:40:19 CDT Mima Erazo [facility] [place]-50269 Level 3 Est. Patient 09:26:40 CDT Marvel Charles [facility]-35667 Level 3 Est. Patient 12:36:43 CDT Vanessa Hickey MD [facility]-70656 Level 3 Est. Patient 12:57:49 CDT Vanessa Hickey MD [facility]-03064 Level 3 Est. Patient 00:28:25 CDT Alina Cast[facility]eda [facility]72238 Level 2 Est. Patient 12:52:14 CDT Alina Castaneda MD [facility]-90578 Level 3 Est. Patient 11:51:18 HUMAN FACTORS SPECIALIST Alina Castaneda MD [facility]-28615 Level 3 Est. Patient 10:09:22 HUMAN FACTORS SPECIALIST Alina Castaneda MD [facility]01517 Level 3 Est. Patient 14:36:26 HUMAN FACTORS SPECIALIST Marvel Charles [facility]10097 Level 3 Est. Patient 13:34:47 HUMAN FACTORS SPECIALIST Alina Castaneda MD [facility]-30060 Level 3 Est. Patient 19:52:08 HUMAN FACTORS SPECIALIST Alina Castaneda MD [facility]-08130 Level 3 Est. Patient 10:01:51 HUMAN FACTORS SPECIALIST Marvel Araceli [facility]-68860 Level 3 Est. Patient 21:54:06 CDT Vanessa Hickey MD [facility]-08814 Level 3 Est. Patient 08:54:46 CDT Alina Castaneda MD [facility]-81239 Level 3 Est. Patient 09:32:11 CDT Marvel Charles [facility]-84699 Level 3 Est. Patient 12:02:49 CDT Alina Castaneda MD [facility]-23546 Level 3 Est. Patient 19:17:33 CDT Alina Castaneda MD [facility]-84593 Level 3 Est. Patient 13:19:10 CDT Marvel Charles [facility]-31675 Level 3 Est. Patient 08:20:05 CDT Alina Castaneda MD [facility]-03003 Level 3 Est. Patient 15:17:18 CDT Alina Castaneda MD [facility]-74584 Level 3 Est. Patient 14:25:36 HUMAN FACTORS SPECIALIST [place] Araceli [facility]-66591 Level 3 Est. Patient 10:09:15 HUMAN FACTORS SPECIALIST [place] Araceli [facility] [place][note 2] CPT-50881 Level 3 Est. Patient 21:28:43 CDT Alina Castaneda MD [facility]-28661 Level 3 Est. Patient 15:20:11 CDT Marvel Charles [facility]-57375 Level 4 Est. Patient 19:08:12 CDT Alina Castaneda MD [facility]-22078 Level 3 Est. Patient 15:06:39 CDT Marvel Charles [facility]-18173 Level 4 Est. Patient 17:48:15 CDT Alina Castaneda MD [facility]-21474 Level 3 Est. Patient 14:53:49 CDT Alina Castaneda MD [facility]-51411 Level 3 Est. Patient 09:35:16 CDT Alina Castaneda MD [facility]-10430 Level 3 Est. Patient 12:23:22 CDT Alina Castaneda MD [facility]-57782 Level 3 Est. Patient 16:19:15 CDT Alina Castaneda MD [facility]-69920 Level 3 Est. Patient 21:39:56 HUMAN FACTORS SPECIALIST Alina Castaneda MD [facility]-99186 Level 4 Est. Patient 14:12:56 HUMAN FACTORS SPECIALIST Alina Castaneda MD [facility]-99881 Level 2 Est. Patient 15:34:57 HUMAN FACTORS SPECIALIST Alina Castaneda MD [facility]-05744 Level 3 Est. Patient 12:17:04 HUMAN FACTORS SPECIALIST Alina Castaneda MD [facility]-81066 Level 3 Est. Patient 09:18:18 HUMAN FACTORS SPECIALIST Marvel Charles [facility]-43277 Level 2 Est. Patient 21:50:24 CDT Alina Castaneda MD [facility]-10061 Level 3 Est. Patient 09:17:28 CDT Marvel Charles [facility]-92458 Level 4 Est. Patient 18:54:02 CDT Alina Castaneda MD [facility] CPT-95959 Level 3 Est. Patient 10:47:10 CDT Alina Castaneda MD [facility] CPT-01599 Level 3 Est. Patient 09:22:20 CDT Marvel Thurstonestela [facility] [place][note 2] CPT-08953 Level 3 Est. Patient 16:39:43 CDT Marvel Thurstonestela [facility] [place][note 2] CPT-67753 Level 3 Est. Patient 16:05:16 CDT Alina Castaneda MD [facility] CPT-34498 Level 3 Est. Patient 00:29:15 CDT Alina Castaneda MD [facility]-94452 Level 3 Est. Patient 10:49:22 HUMAN FACTORS SPECIALIST Marvel Thurstonestela [facility] [place][note 2] CPT-80588 Level 3 Est. Patient 21:30:19 HUMAN FACTORS SPECIALIST Alina Castaneda MD PhD [facility] CPT-28740 Level 4 Est. Patient 17:04:11 HUMAN FACTORS SPECIALIST [place] Thurston[place] [facility] [place][note 2] CPT-60151 Level 3 Est. Patient 15:34:11 HUMAN FACTORS SPECIALIST [facility]-92273 Level 2 Est. Patient 12:51:58 HUMAN FACTORS SPECIALIST Alina Castaneda MD PhD [facility] CPT-38651 Level 3 Est. Patient 13:20:01 HUMAN FACTORS SPECIALIST Alina Castaneda MD PhD [facility] CPT-02984 Level 3 Est. Patient 09:23:35 CDT Alina Castaneda MD PhD [facility] Procedures Code Procedure Name Date Entry Date Standard Description CPT-91830 Level 2 Prison 14:06:10 HUMAN FACTORS SPECIALIST CPT-G0439 [facility] Annual Wellness Exam 15:49:52 HUMAN FACTORS SPECIALIST CPT-29655 Level 3 Prison 13:20:19 CDT CPT-TCMM Transitional Care Mgmt-Moderate 12:32:19 CDT CPT-66619 Level 2 Prison 09:01:11 CDT CPT-70310 HGBA1C - LAB USE ONLY 09:30:27 HUM[employer] FACTORS SPECIALIST CPT-63323 BMP - LAB USE ONLY 09:30:27 HUMAN FACTORS SPECIALIST CPT-98075 Venipuncture Draw Fee 09:30:26 HUMAN FACTORS SPECIALIST CPT-TCMM Transitional Care Mgmt-Moderate 10:25:31 CDT CPT-54266 Bladder Scan 14:34:53 CDT CPT-91569 Bladder Scan 14:39:01 HUMAN FACTORS SPECIALIST CPT-TCMM Transitional Care Mgmt-Moderate 10:30:19 HUMAN FACTORS SPECIALIST CPT-59690 Bladder Scan 12:36:44 CDT CPT-87611 Bladder Scan 21:54:06 CDT CPT-G0008 Administration of Influenza Virus Vaccine 13:05:26 CDT CPT-66403 Fluzone Quadrivalent Intramuscular Suspension 0.5 ML 13: 05:26 CDT CPT-01298 Administration single or combination vaccine inc oral 11 :49:51 CDT CPT-82804 Pneumovax 11:49:51 CDT CPT-22200 Ribs unilateral 2V 12:37:22 HUMAN FACTORS SPECIALIST CPT-79937 Chest 2V Frontal and Lat 17:15:26 CDT CPT-17215 Abx/Therapy Injection 18:54:02 CDT CPT-J0696 Rocephin 1000 mg (Ceftriaxone) 16:00:32 CDT CPT-67010 Chest 2V Frontal and Lat 15:26:45 CDT CPT-59813 Chest 2V Frontal and Lat 10:23:27 CDT CPT-81444 Venipuncture Draw Fee 10:11:00 CDT CPT-33333 Administration single or combination vaccine inc oral 11 :56:38 CDT CPT-42775 Influenza split virus > age 3 11:56:38 CDT CPT-13603 Venipuncture Draw Fee 08:49:54 HUMAN FACTORS SPECIALIST CPT-42307 EKG Trac and Interp 17:54:19 HUMAN FACTORS SPECIALIST
--- OUTSIDE RECORDS SUMMARY | 2018-07-02 14:55 | XMS REPORT | Clinical Summary ---
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 Benign paroxysmal positional vertigo High-risk sexual behavior [...] Generic Name NDC Status Provider Patient Instruction RISPERDAL 2 MG ORAL TABLET Take 1 tablet by mouth three times a day RISPERIDONE 38648821201 Active Mya Ledezma MA Active [facility] MILK OF MAGNESIA 400 MG/5ML ORAL SUSPENSION 30ml by mouth bid prn MAGNESIUM HYDROXIDE 20051324601 No Longer Active Mya Ledezma MA Active [facility] MELATONIN 3 MG ORAL TABLET 1 tab nightly MELATONIN 71733727377 No Longer Active Mya Ledezma MA Active AMBIEN 10 MG ORAL TABLET 1 at night as needed for sleep ZOLPIDEM TARTRATE 77105072036 Active Mason Loredo MD Active VERAPAMIL HCL ER 180 MG ORAL TABLET EXTENDED RELEASE 1 pill by mouth twice daily, for migraine prevention VERAPAMIL HCL 49732429456 No Longer Active Mason Loredo MD Active EFFEXOR XR 150 MG ORAL CAPSULE EXTENDED RELEASE 24 HOUR 1 tab daily VENLAFAXINE HCL 58518746497 No Longer Active Mason Loredo MD Active VENLAFAXINE HCL ER 150 MG ORAL CAPSULE EXTENDED RELEASE 24 HOUR 1 tablet 2 times a day VENLAFAXINE HCL 12850529254 Active Mason Loredo MD Active TOPAMAX 25 MG ORAL TABLET 1 tab BID PRN TOPIRAMATE 80345867887 No Longer Active Mason Loredo MD Active LATUDA 40 MG ORAL TABLET 1.5 tab by mouth in the afternoon 05/23 LURASIDONE HCL 90540958796 No Longer Active Mason Loredo MD Active QUETIAPINE FUMARATE 100 MG ORAL TABLET 1 tab PO at HS QUETIAPINE FUMARATE 88946422589 No Longer Active Mason Loredo MD Active QUETIAPINE FUMARATE 25 MG ORAL TABLET 2 tabs BID QUETIAPINE FUMARATE 60642474905 No Longer Active Mason Loredo MD Active ATORVASTATIN CALCIUM 10 MG ORAL TABLET Take 1 tablet by mouth daily. Recheck labs in 3 months ATORVASTATIN CALCIUM 45147510534 Active Mya Ledezma MA Active VERAPAMIL HCL ER 180 MG ORAL TABLET EXTENDED RELEASE 1 tab BID VERAPAMIL HCL 97347839038 Active Shavonne Feliciano PA-C Active SEROQUEL 25 MG ORAL TABLET Take two tabs by mouth in the morning, take 4 tablets at night QUETIAPINE FUMARATE 74811120713 No Longer Active Shavonne Feliciano PA-C Active AMARYL 2 MG ORAL TABLET give 2.5 tabs PO daily GLIMEPIRIDE 70190088650 No Longer Active Shavonne Feliciano PA-C Active AMARYL 2 MG ORAL TABLET give 2 tabs PO in the morning GLIMEPIRIDE 90566227207 Active Shavonne Feliciano PA-C Active FENOFIBRATE 145 MG ORAL TABLET 1 tab PO in the morning FENOFIBRATE 74354638649 Active Shavonne Feliciano PA-C Active SEROQUEL 100 MG ORAL TABLET 1 tab daily QUETIAPINE FUMARATE 47156675928 No Longer Active Shavonne Feliciano PA-C Active [facility] MELATONIN 3 MG ORAL TABLET give 1 tab by mouth at HS MELATONIN 93916947756 No Longer Active Gabrielle Marquez MA Active NOVOLOG FLEXPEN 100 UNIT/ML SUBCUTANEOUS SOLUTION PEN-INJECTOR sliding scale INSULIN ASPART 07389102477 Active Gabrielle Marquez MA Active METFORMIN HCL 1000 MG ORAL TABLET 1 tab by mouth BID METFORMIN HCL 42771411904 Active Gabrielle Marquez MA Active TAMSULOSIN HCL 0.4 MG ORAL CAPSULE give 2 capsules PO each evening TAMSULOSIN HCL 57789249142 No Longer Active Gabrielle Marquez MA Active VITAMIN D 2000 UNIT ORAL CAPSULE Take one by mouth daily CHOLECALCIFEROL 07831770999 No Longer Active Gabrielle Marquez MA Active LEVEMIR 100 UNIT/ML SUBCUTANEOUS SOLUTION 10 u at bedtime INSULIN DETEMIR 31731139868 Active Gabrielle Marquez MA Active TAMSULOSIN HCL 0.4 MG ORAL CAPSULE 2 every night for urine flow TAMSULOSIN HCL 38309986656 Active Gabrielle Marquez MA Active DIVALPROEX SODIUM 125 MG ORAL TABLET DELAYED RELEASE 1 tab each morning 02/17 DIVALPROEX SODIUM 50283537066 Active Gabrielle Marquez MA Active D 1000 TABLET 2 tab by mouth BID CHOLECALCIFEROL TABS 04388421933 Active Gabrielle Marquez MA Active ALIGN 4 MG ORAL CAPSULE 1 tab at hs PROBIOTIC PRODUCT 91486127353 Active Gabrielle Marquez MA Active CLONAZEPAM 1 MG ORAL TABLET 1 pill by mouth two times daily CLONAZEPAM 34260429928 Active Gabrielle Marquez MA Active OCEAN NASAL SPRAY SOLUTION 2 sprays in both nostrils every 8 hours as needed for dry mucous membranes SALINE SOLN 97256385069 Active Mason Loredo MD Active BETHANECHOL CHLORIDE 25 MG ORAL TABLET Take 1 tablet mouth four times a day BETHANECHOL CHLORIDE 10027920589 Active Mason Loredo MD Active [facility] LUBRICANT EYE DROPS 0.4-0.3 % OPHTHALMIC SOLUTION POLYETHYL GLYCOL-PROPYL GLYCOL 01758718138 No Longer Active Mason Loredo MD Active TYLENOL 8 HOUR 650 MG ORAL TABLET EXTENDED RELEASE 1 tab QID prn ACETAMINOPHEN 16390797096 No Longer Active Mason Loredo MD Active TIMOPTIC OCUDOSE 0.5 % OPHTHALMIC SOLUTION instill one drop into both eyes q12H TIMOLOL MALEATE 05717547936 Active Mason Loredo MD Active TRAZODONE HCL 100 MG ORAL TABLET 1 every night to prevent headaches TRAZODONE HCL 17053117587 No Longer Active Mason Loredo MD Active TRAVATAN Z 0.004 % OPHTHALMIC SOLUTION 1 drop each eye daily 2017 TRAVOPROST 88782092707 No Longer Active Mason Loredo MD Active LATUDA 60 MG ORAL TABLET 1 tab daily LURASIDONE HCL 38494165548 No Longer Active Mason Loredo MD Active MORPHINE SULFATE ER 30 MG ORAL TABLET EXTENDED RELEASE Take one capsule BID MORPHINE SULFATE 00185157948 No Longer Active Mason Loredo MD Active TRUE METRIX BLOOD GLUCOSE TEST IN VITRO STRIP Check blood sugars 3x/day. 2015 GLUCOSE BLOOD 22149286303 No Longer Active Mason Loredo MD Active TRUEPLUS LANCETS 30G 3x a day LANCETS 91008028597 No Longer Active Mason Loredo MD Active MYLANTA GAS RELIEF MAXIMUM STR 125 MG ORAL CAPSULE 30cc every 4 hours prn SIMETHICONE 69579832629 No Longer Active Mason Loredo MD Active IMODIUM A-D 2 MG ORAL TABLET 1 tab QID as needed LOPERAMIDE HCL 54002020431 No Longer Active Mason Loredo MD Active FLONASE ALLERGY RELIEF 50 MCG/ACT NASAL SUSPENSION One spray each nostril BID x 1 week then daily FLUTICASONE PROPIONATE 93341829365 No Longer Active Mason Loredo MD Active FLUVOXAMINE MALEATE 100 MG ORAL TABLET take one tab every AM et HS, and take 1 /2 tab at noon FLUVOXAMINE MALEATE 32117401488 No Longer Active Mason Loredo MD Active BD PEN NEEDLE MINI U/F 31G X 5 MM 4 a day INSULIN PEN NEEDLE 45594102920 No Longer Active Mason Loredo MD Active AMITIZA 24 MCG ORAL CAPSULE Take one capsule BID for constipation LUBIPROSTONE 53998859847 No Longer Active Mason Loredo MD Active TRUEPLUS LANCETS 30G 3 a day LANCETS 12181770832 No Longer Active Mason Loredo MD Active CORICIDIN HBP CONGESTION/COUGH 10-200 MG ORAL CAPSULE Take as directed on box as needed for cold/flu symptoms DEXTROMETHORPHAN- GUAIFENESIN 09353644787 No Longer Active Mason Loredo MD Active OMEGA-3 300 MG ORAL CAPSULE 4 caps by mouth daily OMEGA-3 FATTY ACIDS 42756541411 No Longer Active Mason Loredo MD Active HUMALOG KWIKPEN 100 UNIT/ML SUBCUTANEOUS SOLUTION PEN-INJECTOR sliding scale if needed INSULIN LISPRO (HUMAN) 80620385222 No Longer Active Mason Loredo MD Active TRUETEST TEST IN VITRO STRIP check blood sugars 3x/day GLUCOSE BLOOD 76423522639 No Longer Active Mason Loredo MD Active ALFUZOSIN HCL ER 10 MG ORAL TABLET EXTENDED RELEASE 24 HOUR 1 tablet daily ALFUZOSIN HCL 62102507874 No Longer Active Mason Loredo MD Active BD INSULIN SYRINGE 28G X 1/2" 1 ML 1 four times per day INSULIN SYRINGE-NEEDLE U-100 19828222815 No Longer Active Mason Loredo MD Active LEVEMIR FLEXTOUCH 100 UNIT/ML SUBCUTANEOUS SOLUTION PEN-INJECTOR 60 units SQ each evening, for diabetes INSULIN DETEMIR 76710847619 No Longer Active Mason Loredo MD Active LACTULOSE 20 GM/30ML ORAL SOLUTION give 30 Ml PO BID PRN LACTULOSE 62484743581 Active Mason Loredo MD Active COLACE 100 MG ORAL CAPSULE 1 tab BID PRN DOCUSATE SODIUM 87806819543 Active Mason Loredo MD Active LATANOPROST 0.005 % OPHTHALMIC SOLUTION instill 1 drop in both eyes at bed time LATANOPROST 55004598079 Active Mason Loredo MD Active MIRALAX ORAL POWDER 17g by mouth q12h, for constipation POLYETHYLENE GLYCOL 3350 66350472878 Active Mason Loredo MD Active IBUPROFEN 400 MG ORAL TABLET 1 tab Q6H PRN IBUPROFEN 77779339124 Active Mason Loredo MD Active FLUVOXAMINE MALEATE 50 MG ORAL TABLET 1 tab by mouth daily 04/01 FLUVOXAMINE MALEATE 81580502669 No Longer Active Mima Erazo APRN Active TRUE METRIX METER w/Device KIT Check blood sugars 3x/day BLOOD GLUCOSE MONITORING SUPPL 52905528657 Active Marvel Charles POCKET CUTTER Active LATUDA 60 MG ORAL TABLET Take one by mouth daily LURASIDONE HCL 04711570283 No Longer Active Mima Erazo APRN Active TRAVATAN Z 0.004 % OPHTHALMIC SOLUTION 1 gtt each eye daily TRAVOPROST 71646239523 No Longer Active Mason Loredo MD Active LISINOPRIL 20 MG ORAL TABLET 1 BID LISINOPRIL 95979280324 No Longer Active Mason Loredo MD Active ZOLPIDEM TARTRATE 10 MG ORAL TABLET take at bedtime ZOLPIDEM TARTRATE 02796538791 No Longer Active Mason Loredo MD Active HYDROCODONE-ACETAMINOPHEN 5-325 MG ORAL TABLET 2 tabs by mouth three times daily for pain HYDROCODONE-ACETAMINOPHEN 11582677171 No Longer Active Mason Loredo MD Active ZOFRAN 4 MG ORAL TABLET 1 po q4hr PRN Nausea ONDANSETRON HCL 72947862671 No Longer Active Mason Loredo MD Active LOMOTIL 2.5-0.025 MG ORAL TABLET take 1-2 tabs PO after each stool, no more than 8 in 24 hours DIPHENOXYLATE-ATROPINE 56195350368 No Longer Active Mason Loredo MD Active COLACE 100 MG ORAL CAPSULE 1 pill by mouth twice daily, for constipation 2014 DOCUSATE SODIUM 10368057318 No Longer Active Mima Erazo APRN Active TOLTERODINE TARTRATE 2 MG ORAL TABLET 1 pill twice daily, for bladder TOLTERODINE TARTRATE 09559007792 No Longer Active Vanessa Hickey MD Active AMITIZA 24 MCG ORAL CAPSULE Take one capsule BID for constipation. LUBIPROSTONE 14959692182 No Longer Active Vanessa Hickey MD Active METOPROLOL SUCCINATE ER 100 MG ORAL TABLET EXTENDED RELEASE 24 HOUR 1 by mouth daily for blood pressure METOPROLOL SUCCINATE 64043264130 No Longer Active Gracekailee Nelsonb RMA Active METFORMIN HCL ER 500 MG ORAL TABLET EXTENDED RELEASE 24 HOUR Take three tablets by mouth everyday METFORMIN HCL 09159809127 No Longer Active Grace Azam RMA Active LOVAZA 1 GM ORAL CAPSULE 4 daily (for triglycerides) [id number]-2-TZCM ETHYL ESTERS 79201381014 No Longer Active Grace Azam RMA Active TRAZODONE HCL 100 MG ORAL TABLET 1 tab by mouth for sleep TRAZODONE HCL 12286352099 No Longer Active Grace Nelsonb RMA Active NOVOFINE 32G X 6 MM use one four times per day INSULIN PEN NEEDLE 75008641491 No Longer Active Grace Azam RMA Active BACTROBAN 2 % EXTERNAL CREAM Apply to affected area BID for up to 10 days MUPIROCIN CALCIUM 32667059029 No Longer Active Grace Azam RMA Active KEFLEX 500 MG ORAL CAPSULE 1 po BID x 7 days CEPHALEXIN 75255761398 No Longer Active Cherelle Avila APRN Active FLUVOXAMINE MALEATE 100 MG ORAL TABLET Take one (1) tablet by mouth am, 1/2 at noon FLUVOXAMINE MALEATE 72042408998 No Longer Active Mima Erazo APRN Active FLUVOXAMINE MALEATE 100 MG ORAL TABLET Take 1/2 tab at noon 03/04 FLUVOXAMINE MALEATE 05852441356 No Longer Active Cherelle Avila APRN Active ACCU-CHEK ROSA DEVICE Use device to check blood sugars BLOOD GLUCOSE MONITORING SUPPL 46411253448 No Longer Active Marvel MARROQUIN Active ACCU-CHEK ROSA IN VITRO STRIP use strips with device to check blood sugars 3 times daily GLUCOSE BLOOD 02196726703 No Longer Active Brookslashondanivia Araceli MARROQUIN Active CYCLOBENZAPRINE HCL 10 MG ORAL TABLET 1 tablet by mouth three times daily, scheduled CYCLOBENZAPRINE HCL 37066072903 No Longer Active Alina Castaneda MD PhD Active HUMALOG 100 UNIT/ML SUBCUTANEOUS SOLUTION Take 20 units with breakfast, 10u with lunch and suppetr. INSULIN LISPRO (HUMAN) 47851140839 No Longer Active Alina Castaneda MD PhD Active TRUETEST TEST IN VITRO STRIP check sugars 4x/day GLUCOSE BLOOD 74978009468 No Longer Active Alina Castaneda MD PhD Active MORPHINE SULFATE 30 MG ORAL TABLET 1 pill by mouth twice daily, for pain 2013 MORPHINE SULFATE 74232179834 No Longer Active Mason Loredo MD Active ACYCLOVIR 400 MG ORAL TABLET 1 pill three times daily x 5 days, for cold sore outbreak ACYCLOVIR 48169247057 No Longer Active Alina Castaneda MD PhD Active PENICILLIN V POTASSIUM 500 MG ORAL TABLET 1 pill by mouth three times daily PENICILLIN V POTASSIUM 93361950451 No Longer Active Alina Castaneda MD PhD Active UROXATRAL 10 MG ORAL TABLET EXTENDED RELEASE 24 HOUR Take 1 tablet by mouth daily ALFUZOSIN HCL 91011029754 No Longer Active Alina Castaneda MD PhD Active THIOTHIXENE 5 MG ORAL CAPSULE by mouth twice a day THIOTHIXENE 52723169975 No Longer Active Alina Castaneda MD PhD Active ZYPREXA 7.5 MG ORAL TABLET 1 at HS OLANZAPINE 51439911206 No Longer Active Alina Castaneda MD PhD Active DETROL LA 4 MG ORAL CAPSULE EXTENDED RELEASE 24 HOUR Take 1 tablet by mouth daily TOLTERODINE TARTRATE 36303849809 No Longer Active Alina Castaneda MD PhD Active TERESE CONTOUR TEST IN VITRO STRIP monitor blood sugars 3x/day GLUCOSE BLOOD 65938325929 No Longer Active Alina Castaneda MD PhD Active EQL TRUETEST TEST IN VITRO STRIP Test blood sugar TID GLUCOSE BLOOD 81992272690 No Longer Active Alina Castaneda MD PhD Active FLUTICASONE PROPIONATE 50 MCG/ACT NASAL SUSPENSION 2 sprays each nostril qDay x 30 days FLUTICASONE PROPIONATE 39400583067 No Longer Active Alina Castaneda MD PhD Active IBUPROFEN 200 MG ORAL TABLET 1 Q 6 hr. PRN IBUPROFEN 67484321599 No Longer Active Alina Castaneda MD PhD Active NIACIN ER 500 MG ORAL TABLET EXTENDED RELEASE 4 qHS (for triglycerides) 01/13 NIACIN 83871068844 No Longer Active Alina Castaneda MD PhD Active SAPHRIS 5 MG SUBLINGUAL TABLET SUBLINGUAL by mouth twice a day ASENAPINE MALEATE 51447910151 No Longer Active Maljohn Mackenzieglari POCKET CUTTER Active ACETAMINOPHEN 500 MG ORAL TABLET 2 Q 6 hr. PRN ACETAMINOPHEN 53813429347 No Longer Active Maljohn Mackenzieglestela MENDOZAP Active ORPHENADRINE CITRATE ER 100 MG ORAL TABLET EXTENDED RELEASE 12 HOUR 1 every 12 hr. as needed ORPHENADRINE CITRATE 30692846067 No Longer Active Alina Castaneda MD PhD Active NIACIN ER 500 MG ORAL TABLET EXTENDED RELEASE 2 qHS NIACIN 93758569125 No Longer Active Alina Castaneda MD PhD Active AMOXICILLIN 500 MG ORAL CAPSULE 2 po BID x 10 days AMOXICILLIN 35605133888 No Longer Active Alina Castaneda MD PhD Active HYDROCODONE-ACETAMINOPHEN 7.5-325 MG ORAL TABLET 1 four times a day as needed for pain HYDROCODONE-ACETAMINOPHEN 58866525212 No Longer Active Alina Castaneda MD PhD Active DOXEPIN HCL 10 MG ORAL CAPSULE Take 1 tablet by mouth daily DOXEPIN HCL 04031935431 No Longer Active Salina ROJAS Active NAVANE 10 MG CAPS 1/2 tablet twice a day THIOTHIXENE No Longer Active Salina ROBBINSA Active CYCLOBENZAPRINE HCL 10 MG ORAL TABLET 1/2 tablet by mouth every 8 hours as needed for muscle spasms CYCLOBENZAPRINE HCL 17182856018 No Longer Active Alina Castaneda MD PhD Active BACTROBAN 2 % EXTERNAL CREAM apply to ear and nose twice daily MUPIROCIN CALCIUM 70467031569 No Longer Active Alina Castaneda MD PhD Active HYDROCODONE-ACETAMINOPHEN 5-325 MG ORAL TABLET take one tablet by mouth every four hours as needed for pain HYDROCODONE-ACETAMINOPHEN 56212804843 No Longer Active Alina Castaneda MD PhD Active ZYPREXA 5 MG ORAL TABLET take one tablet by mouth every evening OLANZAPINE 05129953264 No Longer Active Alina Castaneda MD PhD Active ALBUTEROL SULFATE (2.5 MG/3ML) 0.083% INHALATION NEBULIZATION SOLUTION one vial per nebulizer TID and PRN cough/soa ALBUTEROL SULFATE 00089941378 No Longer Active Alina Castaneda MD PhD Active GUAIFENESIN ER 600 MG ORAL TABLET EXTENDED RELEASE 12 HOUR 1 tablet by mouth twice daily if needed for cough GUAIFENESIN 50829970054 No Longer Active Marvel MARROQUIN Active AZITHROMYCIN 500 MG INTRAVENOUS SOLUTION RECONSTITUTED 1 po q day AZITHROMYCIN 81596422653 No Longer Active Alina Castaneda MD PhD Active PROMETHAZINE-CODEINE 6.25-10 MG/5ML ORAL SYRUP 1 tsp po q 6 hours prn cough PROMETHAZINE-CODEINE 03622046252 No Longer Active Alina Castaneda MD PhD Active CEFDINIR 300 MG ORAL CAPSULE by mouth twice a day CEFDINIR 65614424025 No Longer Active Alina Castaneda MD PhD Active METFORMIN HCL ER 500 MG ORAL TABLET EXTENDED RELEASE 24 HOUR Take 3 tablets by mouth everyday METFORMIN HCL 95373053652 No Longer Active Alina Castaneda MD PhD Active LEVEMIR 100 UNIT/ML SUBCUTANEOUS SOLUTION 90 units SQ qHS INSULIN DETEMIR 76363137053 No Longer Active Marvel MARROQUIN Active TOPROL XL 100 MG ORAL TABLET EXTENDED RELEASE 24 HOUR 1 @ HS METOPROLOL SUCCINATE 23829683080 No Longer Active Brooksjohn MARROQUIN Active ALLOPURINOL 300 MG ORAL TABLET Take one by mouth daily ALLOPURINOL 47156814260 Active 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 Active ZYPREXA 10 MG ORAL TABLET Take one by mouth daily OLANZAPINE 67174661656 No Longer Active Alina Castaneda MD PhD Active NOVOLOG 100 UNIT/ML SUBCUTANEOUS SOLUTION 40 units with every meal INSULIN ASPART 38734873769 No Longer Active Alina Castaneda MD PhD Active VERAPAMIL HCL ER 120 MG ORAL TABLET EXTENDED RELEASE 1 qPM 09/08 VERAPAMIL HCL 94805118507 No Longer Active Salina ROJAS Active ZYPREXA 15 MG ORAL TABLET Take 1 tablet by mouth daily OLANZAPINE 94126026142 No Longer Active Marvel MARROQUIN Active ALBUTEROL SULFATE (2.5 MG/3ML) 0.083% INHALATION NEBULIZATION SOLUTION 1 neb tid and prn cough ALBUTEROL SULFATE 88667325140 No Longer Active Alina Castaneda MD PhD Active LANTUS 100 UNIT/ML SUBCUTANEOUS SOLUTION 60 units sq q hs INSULIN GLARGINE 89060514327 No Longer Active CRYSTAL Suarez Active ACETAMINOPHEN 500 MG ORAL TABLET 2 Q 6 hr. PRN ACETAMINOPHEN 500 MG ORAL TABLET 380221 ACETAMINOPHEN Inactive ALBUTEROL SULFATE (2.5 MG/3ML) 0.083% INHALATION NEBULIZATION SOLUTION one vial per nebulizer TID and PRN cough/soa ALBUTEROL SULFATE (2.5 MG/3ML) 0.083% INHALATION NEBULIZATION SOLUTION 164806 ALBUTEROL SULFATE Inactive ALBUTEROL SULFATE (2.5 MG/3ML) 0.083% INHALATION NEBULIZATION SOLUTION 1 neb tid and prn cough ALBUTEROL SULFATE (2.5 MG/3ML) 0.083% INHALATION NEBULIZATION SOLUTION 397999 ALBUTEROL SULFATE Inactive AMOXICILLIN 500 MG ORAL CAPSULE 2 po BID x 10 days AMOXICILLIN 500 MG ORAL CAPSULE 053302 AMOXICILLIN Inactive COLACE 100 MG ORAL CAPSULE 1 pill by mouth twice daily, for constipation 2014 COLACE 100 MG ORAL CAPSULE 5681622 DOCUSATE SODIUM Inactive CYCLOBENZAPRINE HCL 10 MG ORAL TABLET 1/2 tablet by mouth every 8 hours as needed for muscle spasms CYCLOBENZAPRINE HCL 10 MG ORAL TABLET 417508 CYCLOBENZAPRINE HCL Inactive CYCLOBENZAPRINE HCL 10 MG ORAL TABLET 1 tablet by mouth three times daily, scheduled CYCLOBENZAPRINE HCL 10 MG ORAL TABLET 791149 CYCLOBENZAPRINE HCL Inactive DOXEPIN HCL 10 MG ORAL CAPSULE Take 1 tablet by mouth daily DOXEPIN HCL 10 MG ORAL CAPSULE 8072181 DOXEPIN HCL Inactive IBUPROFEN 200 MG ORAL TABLET 1 Q 6 hr. PRN IBUPROFEN 200 MG ORAL TABLET 530075 IBUPROFEN Inactive IMODIUM A-D 2 MG ORAL TABLET 1 tab QID as needed IMODIUM A-D 2 MG ORAL TABLET 084413 LOPERAMIDE HCL Inactive KEFLEX 500 MG ORAL CAPSULE 1 po BID x 7 days KEFLEX 500 MG ORAL CAPSULE 053354 CEPHALEXIN Inactive LISINOPRIL 20 MG ORAL TABLET 1 BID LISINOPRIL 20 MG ORAL TABLET 607744 LISINOPRIL Inactive LOMOTIL 2.5-0.025 MG ORAL TABLET take 1-2 tabs PO after each stool, no more than 8 in 24 hours LOMOTIL 2.5-0.025 MG ORAL TABLET 6407656 DIPHENOXYLATE-ATROPINE Inactive NAVANE 10 MG CAPS 1/2 [...] PENICILLIN V POTASSIUM 500 MG ORAL TABLET 469418 PENICILLIN V POTASSIUM Inactive PROMETHAZINE-CODEINE 6.25-10 MG/5ML ORAL SYRUP 1 tsp po q 6 hours prn cough PROMETHAZINE-CODEINE 6.25-10 MG/5ML ORAL SYRUP 129110 PROMETHAZINE-CODEINE Inactive THIOTHIXENE 5 MG ORAL CAPSULE by mouth twice a day THIOTHIXENE 5 MG ORAL CAPSULE 711401 THIOTHIXENE Inactive TRAZODONE HCL 100 MG ORAL TABLET 1 tab by mouth for sleep TRAZODONE HCL 100 MG ORAL TABLET 502420 TRAZODONE HCL Inactive TRAZODONE HCL 100 MG ORAL TABLET 1 every night to prevent headaches TRAZODONE HCL 100 MG ORAL TABLET 334062 TRAZODONE HCL Inactive ZOFRAN 4 MG ORAL TABLET 1 po q4hr PRN Nausea ZOFRAN 4 MG ORAL TABLET 837139 ONDANSETRON HCL Inactive ACYCLOVIR 400 MG ORAL TABLET 1 pill three times daily x 5 days, for cold sore outbreak ACYCLOVIR 400 MG ORAL TABLET 897774 ACYCLOVIR Inactive FLUVOXAMINE MALEATE 100 MG ORAL TABLET take one tab every AM et HS, and take 1 /2 tab at noon FLUVOXAMINE MALEATE 100 MG ORAL TABLET 692177 FLUVOXAMINE MALEATE Inactive FLUVOXAMINE MALEATE 100 MG ORAL TABLET Take 1/2 tab at noon 03/04 FLUVOXAMINE MALEATE 100 MG ORAL TABLET 381666 FLUVOXAMINE MALEATE Inactive FLUVOXAMINE MALEATE 100 MG ORAL TABLET Take one (1) tablet by mouth am, 1/2 at noon FLUVOXAMINE MALEATE 100 MG ORAL TABLET 521431 FLUVOXAMINE MALEATE Inactive FLUVOXAMINE MALEATE 50 MG ORAL TABLET 1 tab by mouth daily 04/01 FLUVOXAMINE MALEATE 50 MG ORAL TABLET 747099 FLUVOXAMINE MALEATE Inactive ZOLPIDEM TARTRATE 10 MG ORAL TABLET take at bedtime ZOLPIDEM TARTRATE 10 MG ORAL TABLET 848442 ZOLPIDEM TARTRATE Inactive VERAPAMIL HCL ER 120 [...] PO daily AMARYL 2 MG ORAL TABLET 408763 GLIMEPIRIDE Inactive HUMALOG 100 UNIT/ML SUBCUTANEOUS SOLUTION Take 20 units with breakfast, 10u with lunch and suppetr. HUMALOG 100 UNIT/ML SUBCUTANEOUS SOLUTION INSULIN LISPRO (HUMAN) Inactive ZYPREXA 5 MG ORAL TABLET take one tablet by mouth every evening ZYPREXA 5 MG ORAL TABLET 961501 OLANZAPINE Inactive ZYPREXA 7.5 MG ORAL TABLET 1 at HS ZYPREXA 7.5 MG ORAL TABLET 943548 OLANZAPINE Inactive ZYPREXA 10 MG ORAL TABLET Take one by mouth daily ZYPREXA 10 MG ORAL TABLET 517203 OLANZAPINE Inactive BD INSULIN SYRINGE 28G X 1/2" 1 ML 1 four times per day BD INSULIN SYRINGE 28G X 1/2" 1 ML INSULIN SYRINGE-NEEDLE U-100 Inactive TOPAMAX 25 MG ORAL TABLET 1 tab BID PRN TOPAMAX 25 MG ORAL TABLET 425851 TOPIRAMATE Inactive AZITHROMYCIN 500 MG INTRAVENOUS SOLUTION RECONSTITUTED 1 po q day AZITHROMYCIN 500 MG INTRAVENOUS SOLUTION RECONSTITUTED 02735760078 AZITHROMYCIN Inactive QUETIAPINE FUMARATE 25 MG ORAL TABLET 2 tabs BID QUETIAPINE FUMARATE 25 MG ORAL TABLET 532400 QUETIAPINE FUMARATE Inactive QUETIAPINE FUMARATE 100 MG ORAL TABLET 1 tab PO at HS QUETIAPINE FUMARATE 100 MG ORAL TABLET 219028 QUETIAPINE FUMARATE Inactive SEROQUEL 25 MG ORAL TABLET Take two tabs by mouth in the morning, take 4 tablets at night SEROQUEL 25 MG ORAL TABLET 597360 QUETIAPINE FUMARATE Inactive SEROQUEL 100 MG ORAL TABLET 1 tab daily SEROQUEL 100 MG ORAL TABLET 120551 QUETIAPINE FUMARATE Inactive EFFEXOR XR 150 MG ORAL CAPSULE EXTENDED RELEASE 24 HOUR 1 tab daily EFFEXOR XR 150 MG ORAL CAPSULE EXTENDED RELEASE 24 HOUR VENLAFAXINE HCL Inactive BACTROBAN 2 % EXTERNAL CREAM Apply to affected area BID for up to 10 days BACTROBAN 2 % EXTERNAL CREAM 395895 MUPIROCIN CALCIUM Inactive BACTROBAN 2 % EXTERNAL CREAM apply to ear and nose twice daily BACTROBAN 2 % EXTERNAL CREAM 834690 MUPIROCIN CALCIUM Inactive CEFDINIR 300 MG ORAL CAPSULE by mouth twice a day CEFDINIR 300 MG ORAL CAPSULE 296911 CEFDINIR Inactive TOLTERODINE TARTRATE 2 MG ORAL TABLET 1 pill twice daily, for bladder TOLTERODINE TARTRATE 2 MG ORAL TABLET 374113 TOLTERODINE TARTRATE Inactive ZYPREXA 15 MG ORAL TABLET Take 1 tablet by mouth daily ZYPREXA 15 MG ORAL TABLET 110774 OLANZAPINE Inactive METFORMIN HCL ER 500 MG [...] for pain HYDROCODONE-ACETAMINOPHEN 5-325 MG ORAL TABLET 373560 HYDROCODONE-ACETAMINOPHEN Inactive HYDROCODONE-ACETAMINOPHEN 5-325 MG ORAL TABLET take one tablet by mouth every four hours as needed for pain HYDROCODONE-ACETAMINOPHEN 5-325 MG ORAL TABLET 626966 HYDROCODONE-ACETAMINOPHEN Inactive HYDROCODONE-ACETAMINOPHEN 7.5-325 MG ORAL TABLET 1 four times a day as needed for pain HYDROCODONE-ACETAMINOPHEN 7.5-325 MG ORAL TABLET 205904 HYDROCODONE-ACETAMINOPHEN Inactive [facility] MILK OF MAGNESIA 400 [...] days FLUTICASONE PROPIONATE 50 MCG/ACT NASAL SUSPENSION 2558238 FLUTICASONE PROPIONATE Inactive AMITIZA 24 MCG ORAL [...] (for triglycerides) LOVAZA 1 GM ORAL CAPSULE 712220 [id number]-9-ZTZM ETHYL ESTERS Inactive NOVOFINE 32G X 6 [...] evening TAMSULOSIN HCL 0.4 MG ORAL CAPSULE 002462 TAMSULOSIN HCL Inactive [facility] LUBRICANT EYE DROPS [...] 30G 3x a day TRUEPLUS LANCETS 30G [id number] LANCETS Inactive TRUEPLUS LANCETS 30G 3 a day TRUEPLUS LANCETS 30G [id number] LANCETS Inactive EQL TRUETEST TEST IN VITRO [...] FLONASE ALLERGY RELIEF 50 MCG/ACT NASAL SUSPENSION [id number] FLUTICASONE PROPIONATE Inactive Immunizations Vaccine Administration Date [...] Fluvirin, Fluarix, Agriflu(>=18 yo)) Fluzone (>3 yrs.) [UWN065] Influenza, seasonal, injectable pneumococcal immunization administered Pneumovax [...] ... - Chemistry sodium, serum 135 mmol/L 339-708 4755/08/22 carbon dioxide, venous blood 28.4 mmol/L 21.0-32.0 [...] mg/g {creat} 0-29 cholesterol, serum 263 mg/dL 689-051 6812/08/22 triglyceride, serum, fasting 1312 mg/dL 30-200 HDL [...] ordered Encounters Code Encounter Date Provider Facility CPT-89003 [id number] Vst-Est Level IV 15:10:01 HEALTH AND SAFETY COORDINATOR Mason Loredo MD [facility]-50778 [id number] Vst-Est Level III 11:00:25 CDT Shavonne Feliciano PA-C [facility] CPT-02174 Level 3 Est. Patient 09:12:14 HEALTH AND SAFETY COORDINATOR Mima Erazo [facility] CPT-83661 Level 3 Est. Patient 16:52:51 CDT Vanessa Hickey MD [facility] CPT-34178 Level 3 Est. Patient 17:40:16 CDT Mima Erazo [facility] CPT-56622 Level 3 Est. Patient 14:34:52 CDT Vanessa Hickey MD [facility] CPT-09550 Level 3 Est. Patient 16:27:51 CDT Mima Erazo [facility] CPT-51386 Level 3 Est. Patient 14:39:00 HEALTH AND SAFETY COORDINATOR Vanessa Hickey MD [facility] CPT-50922 Level 2 Est. Patient 18:43:34 CDT Mima Erazo [facility] CPT-28972 Level 3 Est. Patient 16:22:09 CDT Cherelle Avila [facility] CPT-15661 Level 4 Est. Patient 17:55:14 CDT Mima Erazo [facility] CPT-26142 Level 2 Est. Patient 17:13:21 CDT Alina Castaneda MD PhD [facility] CPT-37438 Level 3 Est. Patient 14:46:15 CDT Vanessa Hickey MD [facility]-79728 Level 3 Est. Patient 09:34:56 CDT Alina Castaneda MD [facility]-59109 Level 3 Est. Patient 21:40:19 CDT Mima Erazo APRN [facility] CPT-54793 Level 3 Est. Patient 09:26:40 CDT Marvel Charles [facility]-17641 Level 3 Est. Patient 12:36:43 CDT Vanessa Hickey MD [facility]-89795 Level 3 Est. Patient 12:57:49 CDT Vanessa Hickey MD [facility]-58916 Level 3 Est. Patient 00:28:25 CDT Alina Castaneda MD [facility]85444 Level 2 Est. Patient 12:52:14 CDT Alina Castaneda MD [facility]18870 Level 3 Est. Patient 11:51:18 HEALTH AND SAFETY COORDINATOR Alina Castaneda MD [facility]-00177 Level 3 Est. Patient 10:09:22 HEALTH AND SAFETY COORDINATOR Alina Castaneda MD [facility]97749 Level 3 Est. Patient 14:36:26 HEALTH AND SAFETY COORDINATOR Marvel Charles [facility]-56212 Level 3 Est. Patient 13:34:47 HEALTH AND SAFETY COORDINATOR Alina Castaneda MD [facility][note 2]06555 Level 3 Est. Patient 19:52:08 HEALTH AND SAFETY COORDINATOR Alina Castaneda MD [facility]-76672 Level 3 Est. Patient 10:01:51 HEALTH AND SAFETY COORDINATOR Marvel Charles [facility]-32324 Level 3 Est. Patient 21:54:06 CDT Vanessa Hickey MD [facility]-93313 Level 3 Est. Patient 08:54:46 CDT Alina Castaneda MD [facility]-05228 Level 3 Est. Patient 09:32:11 CDT Marvel Thurstonestela [facility]-93321 Level 3 Est. Patient 12:02:49 CDT Alina Castaneda MD [facility]-76719 Level 3 Est. Patient 19:17:33 CDT Alina Castaneda MD [facility]-39093 Level 3 Est. Patient 13:19:10 CDT Marvel Gurdeepajayestela [facility]-37774 Level 3 Est. Patient 08:20:05 CDT Alina Castaneda MD [facility]-64640 Level 3 Est. Patient 15:17:18 CDT Alina Castaneda MD [facility]-17724 Level 3 Est. Patient 14:25:36 HEALTH AND SAFETY COORDINATOR [facility] Est[facility] Patient 10:09:15 HEALTH AND SAFETY COORDINATOR [facility]14 Level 3 Est. Patient 21:28:43 CDT Alina Castaneda MD [facility]-81894 Level 3 Est. Patient 15:20:11 CDT Marvel Araceli [facility]-97533 Level 4 Est. Patient 19:08:12 CDT Alina Castaneda MD [facility]-43927 Level 3 Est. Patient 15:06:39 CDT Marvel Araceli [facility]-87853 Level 4 Est. Patient 17:48:15 CDT Alina Castaneda MD [facility]-94126 Level 3 Est. Patient 14:53:49 CDT Alina Castaneda MD [facility]-28919 Level 3 Est. Patient 09:35:16 CDT Alina Castaneda MD [facility]-00898 Level 3 Est. Patient 12:23:22 CDT Alina Castaneda MD [facility]-63062 Level 3 Est. Patient 16:19:15 CDT Alina Castaneda MD [facility]-30290 Level 3 Est. Patient 21:39:56 HEALTH AND SAFETY COORDINATOR Alina Castaneda MD [facility]-14311 Level 4 Est. Patient 14:12:56 HEALTH AND SAFETY COORDINATOR Alina Castaneda MD [facility]-24544 Level 2 Est. Patient 15:34:57 HEALTH AND SAFETY COORDINATOR Alina Castaneda MD [facility]-20902 Level 3 Est. Patient 12:17:04 HEALTH AND SAFETY COORDINATOR Alina Castaneda MD [facility]-23673 Level 3 Est. Patient 09:18:18 HEALTH AND SAFETY COORDINATOR Marvel Charles [facility]-51270 Level 2 Est. Patient 21:50:24 CDT Alina Castaneda MD [facility]-09096 Level 3 Est. Patient 09:17:28 CDT Marvel Charles [facility]-23613 Level 4 Est. Patient 18:54:02 CDT Alina Castaneda MD [facility]-42021 Level 3 Est. Patient 10:47:10 CDT Alina Castaneda MD [facility]-84804 Level 3 Est. Patient 09:22:20 CDT Marvel Charles [facility]-57552 Level 3 Est. Patient 16:39:[address] [facility] CPT-74048 Level 3 Est. Patient 16:05:16 CDT Alina Castaneda MD [facility] CPT-11477 Level 3 Est. Patient 00:29:15 CDT Alina Castaneda MD [facility]-26386 Level 3 Est. Patient 10:49:22 HEALTH AND SAFETY COORDINATOR Marvel Thurstonestela [facility] CPT-64594 Level 3 Est. Patient 21:30:19 HEALTH AND SAFETY COORDINATOR Alina Castaneda MD [facility]-84854 Level 4 Est. Patient 17:04:11 HEALTH AND SAFETY COORDINATOR [facility] CPT-55916 Level 3 Est. Patient 15:34:11 HEALTH AND SAFETY COORDINATOR [facility] CPT-63043 Level 2 Est. Patient 12:51:58 HEALTH AND SAFETY COORDINATOR Alina Castaneda MD PhD [facility] CPT-18763 Level 3 Est. Patient 13:20:01 HEALTH AND SAFETY COORDINATOR Alina Castaneda MD [facility] CPT-90163 Level 3 Est. Patient 09:23:35 CDT Alina Castaneda MD PhD [facility] Procedures Code Procedure Name Date Entry Date Standard Description CPT-19850 Level 2 Snf 14:06:10 HEALTH AND SAFETY COORDINATOR CPT-G0439 [facility] Annual Wellness Exam 15:49:52 HEALTH AND SAFETY COORDINATOR CPT-96971 Level 3 Snf 13:20:19 CDT CPT-TCMM Transitional Care Mgmt-Moderate 12:32:19 CDT CPT-90252 Level 2 Snf 09:01:11 CDT CPT-87449 HGBA1C - LAB USE ONLY 09:30:27 HEALTH AND SAFETY COORDINATOR CPT-87788 BMP - LAB USE ONLY 09:30:27 HEALTH AND SAFETY COORDINATOR CPT-70485 Venipuncture Draw Fee 09:30:26 HEALTH AND SAFETY COORDINATOR CPT-TCMM Transitional Care Mgmt-Moderate 10:25:31 CDT CPT-24794 Bladder Scan 14:34:53 CDT CPT-94895 Bladder Scan 14:39:01 HEALTH AND SAFETY COORDINATOR CPT-TCMM Transitional Care Mgmt-Moderate 10:30:19 HEALTH AND SAFETY COORDINATOR CPT-56595 Bladder Scan 12:36:44 CDT CPT-54300 Bladder Scan 21:54:06 CDT CPT-G0008 Administration of Influenza Virus Vaccine 13:05:26 CDT CPT-16642 Fluzone Quadrivalent Intramuscular Suspension 0.5 ML 13: 05:26 CDT CPT-85284 Administration single or combination vaccine inc oral 11 :49:51 CDT CPT-49973 Pneumovax 11:49:51 CDT CPT-74293 Ribs unilateral 2V 12:37:22 HEALTH AND SAFETY COORDINATOR CPT-76807 Chest 2V Frontal and Lat 17:15:26 CDT CPT-45791 Abx/Therapy Injection 18:54:02 CDT CPT-J0696 Rocephin 1000 mg (Ceftriaxone) 16:00:32 CDT CPT-29071 Chest 2V Frontal and Lat 15:26:45 CDT CPT-91781 Chest 2V Frontal and Lat 10:23:27 CDT CPT-08721 Venipuncture Draw Fee 10:11:00 CDT CPT-43230 Administration single or combination vaccine inc oral 11 :56:38 CDT CPT-63780 Influenza split virus > age 3 11:56:38 CDT CPT-78867 Venipuncture Draw Fee 08:49:54 HEALTH AND SAFETY COORDINATOR CPT-19652 EKG Trac and Interp 17:54:19 HEALTH AND SAFETY COORDINATOR
--- OUTSIDE RECORDS SUMMARY | 2018-07-02 14:57 | XMS REPORT | Clinical Summary ---
Author Author Admin, MIKEE Organization [facility] Address Unknown Phone Unavailable Allergies, Adverse Reactions, Alerts Allergy Name Reaction Description Start Date Severity Status Provider PROZAC Critical Active CRYSATL Suarez ABILIFGreg Critical Active CRYSTAL Suarez Conditions 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 Erazo HISTOLOGY SUPERVISOR Benign paroxysmal positional vertigo Vertigo, benign paroxysmal position 386.11 Inactive Mima Erazo HISTOLOGY SUPERVISOR Benign paroxysmal positional vertigo High-risk sexual [...] by mouth three times a day RISPERIDONE 66270619034 Active Mya Ledezma MA Active [facility] MILK OF MAGNESIA 400 MG/5ML ORAL SUSPENSION 30ml by mouth bid prn MAGNESIUM HYDROXIDE 09632245455 No Longer Active Mya Ledezma MA Active [facility] MELATONIN 3 MG ORAL TABLET 1 tab nightly MELATONIN 81630916769 No Longer Active Mya Ledezma MA Active AMBIEN 10 MG ORAL TABLET 1 at night as needed for sleep ZOLPIDEM TARTRATE 65299769569 Active Mason Loredo MD Active VERAPAMIL HCL ER 180 MG ORAL TABLET EXTENDED RELEASE 1 pill by mouth twice daily, for migraine prevention VERAPAMIL HCL 31244267926 No Longer Active Mason Loredo MD Active EFFEXOR XR 150 MG ORAL CAPSULE EXTENDED RELEASE 24 HOUR 1 tab daily VENLAFAXINE HCL 59397350888 No Longer Active Mason Loredo MD Active VENLAFAXINE HCL ER 150 MG ORAL CAPSULE EXTENDED RELEASE 24 HOUR 1 tablet 2 times a day VENLAFAXINE HCL 79096543187 Active Mason Loredo MD Active TOPAMAX 25 MG ORAL TABLET 1 tab BID PRN TOPIRAMATE 31436838326 No Longer Active Mason Loredo MD Active LATUDA 40 MG ORAL TABLET 1.5 tab by mouth in the afternoon 05/23 LURASIDONE HCL 16592691634 No Longer Active Mason Loredo MD Active QUETIAPINE FUMARATE 100 MG ORAL TABLET 1 tab PO at HS QUETIAPINE FUMARATE 90464391184 No Longer Active Mason Loredo MD Active QUETIAPINE FUMARATE 25 MG ORAL TABLET 2 tabs BID QUETIAPINE FUMARATE 53196780406 No Longer Active Mason Loredo MD Active ATORVASTATIN CALCIUM 10 MG ORAL TABLET Take 1 tablet by mouth daily. Recheck labs in 3 months ATORVASTATIN CALCIUM 87560667431 Active Mya Ledezma MA Active VERAPAMIL HCL ER 180 MG ORAL TABLET EXTENDED RELEASE 1 tab BID VERAPAMIL HCL 97650929416 Active Shavonne Feliciano PA-C Active SEROQUEL 25 MG ORAL TABLET Take two tabs by mouth in the morning, take 4 tablets at night QUETIAPINE FUMARATE 99041038135 No Longer Active Shavonne Feliciano PA-C Active AMARYL 2 MG ORAL TABLET give 2.5 tabs PO daily GLIMEPIRIDE 34766118774 No Longer Active Shavonne Feliciano PA-C Active AMARYL 2 MG ORAL TABLET give 2 tabs PO in the morning GLIMEPIRIDE 65491411631 Active Shavonne Feliciano PA-C Active FENOFIBRATE 145 MG ORAL TABLET 1 tab PO in the morning FENOFIBRATE 54023237590 Active Shavonne Feliciano PA-C Active SEROQUEL 100 MG ORAL TABLET 1 tab daily QUETIAPINE FUMARATE 43670029577 No Longer Active Shavonne Feliciano PA-C Active [facility] MELATONIN 3 MG ORAL TABLET give 1 tab by mouth at HS MELATONIN 68397299144 No Longer Active Gabrielle Marquez MA Active NOVOLOG FLEXPEN 100 UNIT/ML SUBCUTANEOUS SOLUTION PEN-INJECTOR sliding scale INSULIN ASPART 76172485427 Active Gabrielle Marquez MA Active METFORMIN HCL 1000 MG ORAL TABLET 1 tab by mouth BID METFORMIN HCL 13553946355 Active Gabrielle Marquez MA Active TAMSULOSIN HCL 0.4 MG ORAL CAPSULE give 2 capsules PO each evening TAMSULOSIN HCL 10131042052 No Longer Active Gabrielle Marquez MA Active VITAMIN D 2000 UNIT ORAL CAPSULE Take one by mouth daily CHOLECALCIFEROL 98101834794 No Longer Active Gabrielle Marquez MA Active LEVEMIR 100 UNIT/ML SUBCUTANEOUS SOLUTION 10 u at bedtime INSULIN DETEMIR 43229169569 Active Gabrielle Marquez MA Active TAMSULOSIN HCL 0.4 MG ORAL CAPSULE 2 every night for urine flow TAMSULOSIN HCL 67741671832 Active Gabrielle Marquez MA Active DIVALPROEX SODIUM 125 MG ORAL TABLET DELAYED RELEASE 1 tab each morning 02/17 DIVALPROEX SODIUM 67832580885 Active Gabrielle Marquez MA Active D 1000 TABLET 2 tab by mouth BID CHOLECALCIFEROL TABS 80002143757 Active Gabrielle Marquez MA Active ALIGN 4 MG ORAL CAPSULE 1 tab at hs PROBIOTIC PRODUCT 68340505888 Active Gabrielle Marquez MA Active CLONAZEPAM 1 MG ORAL TABLET 1 pill by mouth two times daily CLONAZEPAM 51512926213 Active Gabrielle Marquez MA Active OCEAN NASAL SPRAY SOLUTION 2 sprays in both nostrils every 8 hours as needed for dry mucous membranes SALINE SOLN 37498182541 Active Mason Loredo MD Active BETHANECHOL CHLORIDE 25 MG ORAL TABLET Take 1 tablet mouth four times a day BETHANECHOL CHLORIDE 51698302375 Active Mason Loredo MD Active [facility] LUBRICANT EYE DROPS 0.4-0.3 % OPHTHALMIC SOLUTION POLYETHYL GLYCOL-PROPYL GLYCOL 89759478697 No Longer Active Mason Loredo MD Active TYLENOL 8 HOUR 650 MG ORAL TABLET EXTENDED RELEASE 1 tab QID prn ACETAMINOPHEN 25177904445 No Longer Active Mason Loredo MD Active TIMOPTIC OCUDOSE 0.5 % OPHTHALMIC SOLUTION instill one drop into both eyes q12H TIMOLOL MALEATE 95232036791 Active Mason Loredo MD Active TRAZODONE HCL 100 MG ORAL TABLET 1 every night to prevent headaches TRAZODONE HCL 27105323745 No Longer Active Mason Loredo MD Active TRAVATAN Z 0.004 % OPHTHALMIC SOLUTION 1 drop each eye daily 2017 TRAVOPROST 17030819925 No Longer Active Mason Loredo MD Active LATUDA 60 MG ORAL TABLET 1 tab daily LURASIDONE HCL 05435444109 No Longer Active Mason Loredo MD Active MORPHINE SULFATE ER 30 MG ORAL TABLET EXTENDED RELEASE Take one capsule BID MORPHINE SULFATE 18789823466 No Longer Active Mason Loredo MD Active TRUE METRIX BLOOD GLUCOSE TEST IN VITRO STRIP Check blood sugars 3x/day. 2015 GLUCOSE BLOOD 23225635792 No Longer Active Mason Loredo MD Active TRUEPLUS LANCETS 30G 3x a day LANCETS 47106396114 No Longer Active Mason Loredo MD Active MYLANTA GAS RELIEF MAXIMUM STR 125 MG ORAL CAPSULE 30cc every 4 hours prn SIMETHICONE 82264519088 No Longer Active Mason Loredo MD Active IMODIUM A-D 2 MG ORAL TABLET 1 tab QID as needed LOPERAMIDE HCL 89118021068 No Longer Active Mason Loredo MD Active FLONASE ALLERGY RELIEF 50 MCG/ACT NASAL SUSPENSION One spray each nostril BID x 1 week then daily FLUTICASONE PROPIONATE 80864926305 No Longer Active Mason Loredo MD Active FLUVOXAMINE MALEATE 100 MG ORAL TABLET take one tab every AM et HS, and take 1 /2 tab at noon FLUVOXAMINE MALEATE 01496713011 No Longer Active Mason Loredo MD Active BD PEN NEEDLE MINI U/F 31G X 5 MM 4 a day INSULIN PEN NEEDLE 83626022120 No Longer Active Mason Loredo MD Active AMITIZA 24 MCG ORAL CAPSULE Take one capsule BID for constipation LUBIPROSTONE 30605697539 No Longer Active Mason Loredo MD Active TRUEPLUS LANCETS 30G 3 a day LANCETS 36714249988 No Longer Active Mason Loredo MD Active CORICIDIN HBP CONGESTION/COUGH 10-200 MG ORAL CAPSULE Take as directed on box as needed for cold/flu symptoms DEXTROMETHORPHAN- GUAIFENESIN 97018693537 No Longer Active Mason Loredo MD Active OMEGA-3 300 MG ORAL CAPSULE 4 caps by mouth daily OMEGA-3 FATTY ACIDS 09774120115 No Longer Active Mason Loredo MD Active HUMALOG KWIKPEN 100 UNIT/ML SUBCUTANEOUS SOLUTION PEN-INJECTOR sliding scale if needed INSULIN LISPRO (HUMAN) 25740631144 No Longer Active Mason Loredo MD Active TRUETEST TEST IN VITRO STRIP check blood sugars 3x/day GLUCOSE BLOOD 50461648714 No Longer Active Mason Loredo MD Active ALFUZOSIN HCL ER 10 MG ORAL TABLET EXTENDED RELEASE 24 HOUR 1 tablet daily ALFUZOSIN HCL 50588836929 No Longer Active Mason Loredo MD Active BD INSULIN SYRINGE 28G X 1/2" 1 ML 1 four times per day INSULIN SYRINGE-NEEDLE U-100 94963146602 No Longer Active Mason Loredo MD Active LEVEMIR FLEXTOUCH 100 UNIT/ML SUBCUTANEOUS SOLUTION PEN-INJECTOR 60 units SQ each evening, for diabetes INSULIN DETEMIR 11114160054 No Longer Active Mason Loredo MD Active LACTULOSE 20 GM/30ML ORAL SOLUTION give 30 Ml PO BID PRN LACTULOSE 46443780754 Active Mason Loredo MD Active COLACE 100 MG ORAL CAPSULE 1 tab BID PRN DOCUSATE SODIUM 22940313116 Active Mason Loredo MD Active LATANOPROST 0.005 % OPHTHALMIC SOLUTION instill 1 drop in both eyes at bed time LATANOPROST 87377328496 Active Mason Loredo MD Active MIRALAX ORAL POWDER 17g by mouth q12h, for constipation POLYETHYLENE GLYCOL 3350 89485683537 Active Mason Loredo MD Active IBUPROFEN 400 MG ORAL TABLET 1 tab Q6H PRN IBUPROFEN 82045428923 Active Mason Loredo MD Active FLUVOXAMINE MALEATE 50 MG ORAL TABLET 1 tab by mouth daily 04/01 FLUVOXAMINE MALEATE 27512334421 No Longer Active Mima Erazo APRN Active TRUE METRIX METER w/Device KIT Check blood sugars 3x/day BLOOD GLUCOSE MONITORING SUPPL 25014494552 Active Marvel Charles DEPLOYMENT MANAGER Active LATUDA 60 MG ORAL TABLET Take one by mouth daily LURASIDONE HCL 80639096376 No Longer Active Mima Erazo APRN Active TRAVATAN Z 0.004 % OPHTHALMIC SOLUTION 1 gtt each eye daily TRAVOPROST 35036282602 No Longer Active Mason Loredo MD Active LISINOPRIL 20 MG ORAL TABLET 1 BID LISINOPRIL 10901822434 No Longer Active Mason Loredo MD Active ZOLPIDEM TARTRATE 10 MG ORAL TABLET take at bedtime ZOLPIDEM TARTRATE 29982173527 No Longer Active Mason Loredo MD Active HYDROCODONE-ACETAMINOPHEN 5-325 MG ORAL TABLET 2 tabs by mouth three times daily for pain HYDROCODONE-ACETAMINOPHEN 33713445144 No Longer Active Mason Loredo MD Active ZOFRAN 4 MG ORAL TABLET 1 po q4hr PRN Nausea ONDANSETRON HCL 53690530075 No Longer Active Mason Loredo MD Active LOMOTIL 2.5-0.025 MG ORAL TABLET take 1-2 tabs PO after each stool, no more than 8 in 24 hours DIPHENOXYLATE-ATROPINE 78832971386 No Longer Active Mason Loredo MD Active COLACE 100 MG ORAL CAPSULE 1 pill by mouth twice daily, for constipation 2014 DOCUSATE SODIUM 84102927103 No Longer Active Mima Erazo APRN Active TOLTERODINE TARTRATE 2 MG ORAL TABLET 1 pill twice daily, for bladder TOLTERODINE TARTRATE 57581467330 No Longer Active Vanessa Hickey MD Active AMITIZA 24 MCG ORAL CAPSULE Take one capsule BID for constipation. LUBIPROSTONE 65834542890 No Longer Active Vanessa Hickey MD Active METOPROLOL SUCCINATE ER 100 MG ORAL TABLET EXTENDED RELEASE 24 HOUR 1 by mouth daily for blood pressure METOPROLOL SUCCINATE 21294961819 No Longer Active Gracekailee Nelsonb RMA Active METFORMIN HCL ER 500 MG ORAL TABLET EXTENDED RELEASE 24 HOUR Take three tablets by mouth everyday METFORMIN HCL 69843205825 No Longer Active Grace Azam RMA Active LOVAZA 1 GM ORAL CAPSULE 4 daily (for triglycerides) [id number]-[id number] ETHYL ESTERS 83817829135 No Longer Active Grace Azam RMA Active TRAZODONE HCL 100 MG ORAL TABLET 1 tab by mouth for sleep TRAZODONE HCL 59586370411 No Longer Active Grace Nelsonb RMA Active NOVOFINE 32G X 6 MM use one four times per day INSULIN PEN NEEDLE 86127536278 No Longer Active Grace Azam RMA Active BACTROBAN 2 % EXTERNAL CREAM Apply to affected area BID for up to 10 days MUPIROCIN CALCIUM 65271474357 No Longer Active Grace Azam RMA Active KEFLEX 500 MG ORAL CAPSULE 1 po BID x 7 days CEPHALEXIN 57567878826 No Longer Active Cherelle Avila APRN Active FLUVOXAMINE MALEATE 100 MG ORAL TABLET Take one (1) tablet by mouth am, 1/2 at noon FLUVOXAMINE MALEATE 88885426131 No Longer Active Mima Erazo APRN Active FLUVOXAMINE MALEATE 100 MG ORAL TABLET Take 1/2 tab at noon 03/04 FLUVOXAMINE MALEATE 40802311799 No Longer Active Cherelle Avila APRN Active ACCU-CHEK ROSA DEVICE Use device to check blood sugars BLOOD GLUCOSE MONITORING SUPPL 81862643661 No Longer Active Marvel MARROQUIN Active ACCU-CHEK ROSA IN VITRO STRIP use strips with device to check blood sugars 3 times daily GLUCOSE BLOOD 92911958798 No Longer Active Brookslashondanivia Araceli MARROQUIN Active CYCLOBENZAPRINE HCL 10 MG ORAL TABLET 1 tablet by mouth three times daily, scheduled CYCLOBENZAPRINE HCL 97440431656 No Longer Active Alina Castaneda MD PhD Active HUMALOG 100 UNIT/ML SUBCUTANEOUS SOLUTION Take 20 units with breakfast, 10u with lunch and suppetr. INSULIN LISPRO (HUMAN) 71926736881 No Longer Active Alina Castaneda MD PhD Active TRUETEST TEST IN VITRO STRIP check sugars 4x/day GLUCOSE BLOOD 55679670753 No Longer Active Alina Castaneda MD PhD Active MORPHINE SULFATE 30 MG ORAL TABLET 1 pill by mouth twice daily, for pain 2013 MORPHINE SULFATE 55379258487 No Longer Active Mason Loredo MD Active ACYCLOVIR 400 MG ORAL TABLET 1 pill three times daily x 5 days, for cold sore outbreak ACYCLOVIR 06305528469 No Longer Active Alina Castaneda MD PhD Active PENICILLIN V POTASSIUM 500 MG ORAL TABLET 1 pill by mouth three times daily PENICILLIN V POTASSIUM 28659579748 No Longer Active Alina Castaneda MD PhD Active UROXATRAL 10 MG ORAL TABLET EXTENDED RELEASE 24 HOUR Take 1 tablet by mouth daily ALFUZOSIN HCL 66053818944 No Longer Active Alina Castaneda MD PhD Active THIOTHIXENE 5 MG ORAL CAPSULE by mouth twice a day THIOTHIXENE 39818917284 No Longer Active Alina Castaneda MD PhD Active ZYPREXA 7.5 MG ORAL TABLET 1 at HS OLANZAPINE 95030570507 No Longer Active Alina Castaneda MD PhD Active DETROL LA 4 MG ORAL CAPSULE EXTENDED RELEASE 24 HOUR Take 1 tablet by mouth daily TOLTERODINE TARTRATE 93302817499 No Longer Active Alina Castaneda MD PhD Active TERESE CONTOUR TEST IN VITRO STRIP monitor blood sugars 3x/day GLUCOSE BLOOD 02220249260 No Longer Active Alina Castaneda MD PhD Active EQL TRUETEST TEST IN VITRO STRIP Test blood sugar TID GLUCOSE BLOOD 24185782706 No Longer Active Alina Castaneda MD PhD Active FLUTICASONE PROPIONATE 50 MCG/ACT NASAL SUSPENSION 2 sprays each nostril qDay x 30 days FLUTICASONE PROPIONATE 56315845296 No Longer Active Alina Castaneda MD PhD Active IBUPROFEN 200 MG ORAL TABLET 1 Q 6 hr. PRN IBUPROFEN 84540801782 No Longer Active Alina Castaneda MD PhD Active NIACIN ER 500 MG ORAL TABLET EXTENDED RELEASE 4 qHS (for triglycerides) 01/13 NIACIN 55584776657 No Longer Active Alina Castaneda MD PhD Active SAPHRIS 5 MG SUBLINGUAL TABLET SUBLINGUAL by mouth twice a day ASENAPINE MALEATE 53847022739 No Longer Active Maljohn Mackenzieglari DEPLOYMENT MANAGER Active ACETAMINOPHEN 500 MG ORAL TABLET 2 Q 6 hr. PRN ACETAMINOPHEN 56234368820 No Longer Active Maljohn Mackenzeiglestela MENDOZAP Active ORPHENADRINE CITRATE ER 100 MG ORAL TABLET EXTENDED RELEASE 12 HOUR 1 every 12 hr. as needed ORPHENADRINE CITRATE 98695688336 No Longer Active Alina Castaneda MD PhD Active NIACIN ER 500 MG ORAL TABLET EXTENDED RELEASE 2 qHS NIACIN 50860138615 No Longer Active Alina Castaneda MD PhD Active AMOXICILLIN 500 MG ORAL CAPSULE 2 po BID x 10 days AMOXICILLIN 28373349063 No Longer Active Alina Castaneda MD PhD Active HYDROCODONE-ACETAMINOPHEN 7.5-325 MG ORAL TABLET 1 four times a day as needed for pain HYDROCODONE-ACETAMINOPHEN 66775220725 No Longer Active Alina Castaneda MD PhD Active DOXEPIN HCL 10 MG ORAL CAPSULE Take 1 tablet by mouth daily DOXEPIN HCL 78400574676 No Longer Active Salina ROJAS Active NAVANE 10 MG CAPS 1/2 tablet twice a day THIOTHIXENE No Longer Active Salina ROBBINSA Active CYCLOBENZAPRINE HCL 10 MG ORAL TABLET 1/2 tablet by mouth every 8 hours as needed for muscle spasms CYCLOBENZAPRINE HCL 71598363835 No Longer Active Alina Castaneda MD PhD Active BACTROBAN 2 % EXTERNAL CREAM apply to ear and nose twice daily MUPIROCIN CALCIUM 59634813311 No Longer Active Alina Castaneda MD PhD Active HYDROCODONE-ACETAMINOPHEN 5-325 MG ORAL TABLET take one tablet by mouth every four hours as needed for pain HYDROCODONE-ACETAMINOPHEN 62094560143 No Longer Active Alina Castaneda MD PhD Active ZYPREXA 5 MG ORAL TABLET take one tablet by mouth every evening OLANZAPINE 26054449322 No Longer Active Alina Castaneda MD PhD Active ALBUTEROL SULFATE (2.5 MG/3ML) 0.083% INHALATION NEBULIZATION SOLUTION one vial per nebulizer TID and PRN cough/soa ALBUTEROL SULFATE 59282954989 No Longer Active Alina Castaneda MD PhD Active GUAIFENESIN ER 600 MG ORAL TABLET EXTENDED RELEASE 12 HOUR 1 tablet by mouth twice daily if needed for cough GUAIFENESIN 55736845598 No Longer Active Marvel MARROQUIN Active AZITHROMYCIN 500 MG INTRAVENOUS SOLUTION RECONSTITUTED 1 po q day AZITHROMYCIN 73142375771 No Longer Active Alina Castaneda MD PhD Active PROMETHAZINE-CODEINE 6.25-10 MG/5ML ORAL SYRUP 1 tsp po q 6 hours prn cough PROMETHAZINE-CODEINE 91972334502 No Longer Active Alina Castaneda MD PhD Active CEFDINIR 300 MG ORAL CAPSULE by mouth twice a day CEFDINIR 31984965748 No Longer Active Alina Castaneda MD PhD Active METFORMIN HCL ER 500 MG ORAL TABLET EXTENDED RELEASE 24 HOUR Take 3 tablets by mouth everyday METFORMIN HCL 85159391359 No Longer Active Alina Castaneda MD PhD Active LEVEMIR 100 UNIT/ML SUBCUTANEOUS SOLUTION 90 units SQ qHS INSULIN DETEMIR 31513454704 No Longer Active Marvel MARROQUIN Active TOPROL XL 100 MG ORAL TABLET EXTENDED RELEASE 24 HOUR 1 @ HS METOPROLOL SUCCINATE 80622908101 No Longer Active Brooksjohn MARROQUIN Active ALLOPURINOL 300 MG ORAL TABLET Take one by mouth daily ALLOPURINOL 00505545177 Active Mima Erazo HISTOLOGY SUPERVISOR Active ZYPREXA 10 MG ORAL TABLET Take one by mouth daily OLANZAPINE 08875588434 No Longer Active Alina Castaneda MD PhD Active NOVOLOG 100 UNIT/ML SUBCUTANEOUS SOLUTION 40 units with every meal INSULIN ASPART 83773346131 No Longer Active Alina Castaneda MD PhD Active VERAPAMIL HCL ER 120 MG ORAL TABLET EXTENDED RELEASE 1 qPM 09/08 VERAPAMIL HCL 89010596538 No Longer Active Salina ROJAS Active ZYPREXA 15 MG ORAL TABLET Take 1 tablet by mouth daily OLANZAPINE 63465397229 No Longer Active Marvel MARROQUIN Active ALBUTEROL SULFATE (2.5 MG/3ML) 0.083% INHALATION NEBULIZATION SOLUTION 1 neb tid and prn cough ALBUTEROL SULFATE 90000043193 No Longer Active Alina Castaneda MD PhD Active LANTUS 100 UNIT/ML SUBCUTANEOUS SOLUTION 60 units sq q hs INSULIN GLARGINE 76436370788 No Longer Active CRYSTAL Suarez Active ACETAMINOPHEN 500 MG ORAL TABLET 2 Q 6 hr. PRN ACETAMINOPHEN 500 MG ORAL TABLET 583696 ACETAMINOPHEN Inactive ALBUTEROL SULFATE (2.5 MG/3ML) 0.083% INHALATION NEBULIZATION SOLUTION one vial per nebulizer TID and PRN cough/soa ALBUTEROL SULFATE (2.5 MG/3ML) 0.083% INHALATION NEBULIZATION SOLUTION 181471 ALBUTEROL SULFATE Inactive ALBUTEROL SULFATE (2.5 MG/3ML) 0.083% INHALATION NEBULIZATION SOLUTION 1 neb tid and prn cough ALBUTEROL SULFATE (2.5 MG/3ML) 0.083% INHALATION NEBULIZATION SOLUTION 823900 ALBUTEROL SULFATE Inactive AMOXICILLIN 500 MG ORAL CAPSULE 2 po BID x 10 days AMOXICILLIN 500 MG ORAL CAPSULE 091561 AMOXICILLIN Inactive COLACE 100 MG ORAL CAPSULE 1 pill by mouth twice daily, for constipation 2014 COLACE 100 MG ORAL CAPSULE 3238655 DOCUSATE SODIUM Inactive CYCLOBENZAPRINE HCL 10 MG ORAL TABLET 1/2 tablet by mouth every 8 hours as needed for muscle spasms CYCLOBENZAPRINE HCL 10 MG ORAL TABLET 705461 CYCLOBENZAPRINE HCL Inactive CYCLOBENZAPRINE HCL 10 MG ORAL TABLET 1 tablet by mouth three times daily, scheduled CYCLOBENZAPRINE HCL 10 MG ORAL TABLET 305291 CYCLOBENZAPRINE HCL Inactive DOXEPIN HCL 10 MG ORAL CAPSULE Take 1 tablet by mouth daily DOXEPIN HCL 10 MG ORAL CAPSULE 1728888 DOXEPIN HCL Inactive IBUPROFEN 200 MG ORAL TABLET 1 Q 6 hr. PRN IBUPROFEN 200 MG ORAL TABLET 925608 IBUPROFEN Inactive IMODIUM A-D 2 MG ORAL TABLET 1 tab QID as needed IMODIUM A-D 2 MG ORAL TABLET 266777 LOPERAMIDE HCL Inactive KEFLEX 500 MG ORAL CAPSULE 1 po BID x 7 days KEFLEX 500 MG ORAL CAPSULE 915837 CEPHALEXIN Inactive LISINOPRIL 20 MG ORAL TABLET 1 BID LISINOPRIL 20 MG ORAL TABLET 837588 LISINOPRIL Inactive LOMOTIL 2.5-0.025 MG ORAL TABLET take 1-2 tabs PO after each stool, no more than 8 in 24 hours LOMOTIL 2.5-0.025 MG ORAL TABLET 6091464 DIPHENOXYLATE-ATROPINE Inactive NAVANE 10 MG CAPS 1/2 [...] PENICILLIN V POTASSIUM 500 MG ORAL TABLET 555408 PENICILLIN V POTASSIUM Inactive PROMETHAZINE-CODEINE 6.25-10 MG/5ML ORAL SYRUP 1 tsp po q 6 hours prn cough PROMETHAZINE-CODEINE 6.25-10 MG/5ML ORAL SYRUP 378128 PROMETHAZINE-CODEINE Inactive THIOTHIXENE 5 MG ORAL CAPSULE by mouth twice a day THIOTHIXENE 5 MG ORAL CAPSULE 542236 THIOTHIXENE Inactive TRAZODONE HCL 100 MG ORAL TABLET 1 tab by mouth for sleep TRAZODONE HCL 100 MG ORAL TABLET 821385 TRAZODONE HCL Inactive TRAZODONE HCL 100 MG ORAL TABLET 1 every night to prevent headaches TRAZODONE HCL 100 MG ORAL TABLET 197092 TRAZODONE HCL Inactive ZOFRAN 4 MG ORAL TABLET 1 po q4hr PRN Nausea ZOFRAN 4 MG ORAL TABLET 730133 ONDANSETRON HCL Inactive ACYCLOVIR 400 MG ORAL TABLET 1 pill three times daily x 5 days, for cold sore outbreak ACYCLOVIR 400 MG ORAL TABLET 113525 ACYCLOVIR Inactive FLUVOXAMINE MALEATE 100 MG ORAL TABLET take one tab every AM et HS, and take 1 /2 tab at noon FLUVOXAMINE MALEATE 100 MG ORAL TABLET 841978 FLUVOXAMINE MALEATE Inactive FLUVOXAMINE MALEATE 100 MG ORAL TABLET Take 1/2 tab at noon 03/04 FLUVOXAMINE MALEATE 100 MG ORAL TABLET 194378 FLUVOXAMINE MALEATE Inactive FLUVOXAMINE MALEATE 100 MG ORAL TABLET Take one (1) tablet by mouth am, 1/2 at noon FLUVOXAMINE MALEATE 100 MG ORAL TABLET 653587 FLUVOXAMINE MALEATE Inactive FLUVOXAMINE MALEATE 50 MG ORAL TABLET 1 tab by mouth daily 04/01 FLUVOXAMINE MALEATE 50 MG ORAL TABLET 667994 FLUVOXAMINE MALEATE Inactive ZOLPIDEM TARTRATE 10 MG ORAL TABLET take at bedtime ZOLPIDEM TARTRATE 10 MG ORAL TABLET 243231 ZOLPIDEM TARTRATE Inactive VERAPAMIL HCL ER 120 [...] PO daily AMARYL 2 MG ORAL TABLET 190320 GLIMEPIRIDE Inactive HUMALOG 100 UNIT/ML SUBCUTANEOUS SOLUTION Take 20 units with breakfast, 10u with lunch and suppetr. HUMALOG 100 UNIT/ML SUBCUTANEOUS SOLUTION INSULIN LISPRO (HUMAN) Inactive ZYPREXA 5 MG ORAL TABLET take one tablet by mouth every evening ZYPREXA 5 MG ORAL TABLET 164931 OLANZAPINE Inactive ZYPREXA 7.5 MG ORAL TABLET 1 at HS ZYPREXA 7.5 MG ORAL TABLET 808775 OLANZAPINE Inactive ZYPREXA 10 MG ORAL TABLET Take one by mouth daily ZYPREXA 10 MG ORAL TABLET 400930 OLANZAPINE Inactive BD INSULIN SYRINGE 28G X 1/2" 1 ML 1 four times per day BD INSULIN SYRINGE 28G X 1/2" 1 ML INSULIN SYRINGE-NEEDLE U-100 Inactive TOPAMAX 25 MG ORAL TABLET 1 tab BID PRN TOPAMAX 25 MG ORAL TABLET 656196 TOPIRAMATE Inactive AZITHROMYCIN 500 MG INTRAVENOUS SOLUTION RECONSTITUTED 1 po q day AZITHROMYCIN 500 MG INTRAVENOUS SOLUTION RECONSTITUTED 47193952221 AZITHROMYCIN Inactive QUETIAPINE FUMARATE 25 MG ORAL TABLET 2 tabs BID QUETIAPINE FUMARATE 25 MG ORAL TABLET 535600 QUETIAPINE FUMARATE Inactive QUETIAPINE FUMARATE 100 MG ORAL TABLET 1 tab PO at HS QUETIAPINE FUMARATE 100 MG ORAL TABLET 280370 QUETIAPINE FUMARATE Inactive SEROQUEL 25 MG ORAL TABLET Take two tabs by mouth in the morning, take 4 tablets at night SEROQUEL 25 MG ORAL TABLET 398960 QUETIAPINE FUMARATE Inactive SEROQUEL 100 MG ORAL TABLET 1 tab daily SEROQUEL 100 MG ORAL TABLET 137223 QUETIAPINE FUMARATE Inactive EFFEXOR XR 150 MG ORAL CAPSULE EXTENDED RELEASE 24 HOUR 1 tab daily EFFEXOR XR 150 MG ORAL CAPSULE EXTENDED RELEASE 24 HOUR VENLAFAXINE HCL Inactive BACTROBAN 2 % EXTERNAL CREAM Apply to affected area BID for up to 10 days BACTROBAN 2 % EXTERNAL CREAM 148716 MUPIROCIN CALCIUM Inactive BACTROBAN 2 % EXTERNAL CREAM apply to ear and nose twice daily BACTROBAN 2 % EXTERNAL CREAM 285630 MUPIROCIN CALCIUM Inactive CEFDINIR 300 MG ORAL CAPSULE by mouth twice a day CEFDINIR 300 MG ORAL CAPSULE 525520 CEFDINIR Inactive TOLTERODINE TARTRATE 2 MG ORAL TABLET 1 pill twice daily, for bladder TOLTERODINE TARTRATE 2 MG ORAL TABLET 678962 TOLTERODINE TARTRATE Inactive ZYPREXA 15 MG ORAL TABLET Take 1 tablet by mouth daily ZYPREXA 15 MG ORAL TABLET 841251 OLANZAPINE Inactive METFORMIN HCL ER 500 MG [...] for pain HYDROCODONE-ACETAMINOPHEN 5-325 MG ORAL TABLET 170774 HYDROCODONE-ACETAMINOPHEN Inactive HYDROCODONE-ACETAMINOPHEN 5-325 MG ORAL TABLET take one tablet by mouth every four hours as needed for pain HYDROCODONE-ACETAMINOPHEN 5-325 MG ORAL TABLET 771738 HYDROCODONE-ACETAMINOPHEN Inactive HYDROCODONE-ACETAMINOPHEN 7.5-325 MG ORAL TABLET 1 four times a day as needed for pain HYDROCODONE-ACETAMINOPHEN 7.5-325 MG ORAL TABLET 525914 HYDROCODONE-ACETAMINOPHEN Inactive [facility] MILK OF MAGNESIA 400 [...] days FLUTICASONE PROPIONATE 50 MCG/ACT NASAL SUSPENSION 3845410 FLUTICASONE PROPIONATE Inactive AMITIZA 24 MCG ORAL [...] (for triglycerides) LOVAZA 1 GM ORAL CAPSULE 845975 [id number]-7-[id number] ETHYL ESTERS Inactive NOVOFINE 32G X 6 [...] evening TAMSULOSIN HCL 0.4 MG ORAL CAPSULE 135808 TAMSULOSIN HCL Inactive CVS LUBRICANT EYE DROPS [...] 30G 3x a day TRUEPLUS LANCETS 30G [id number] LANCETS Inactive TRUEPLUS LANCETS 30G 3 a day TRUEPLUS LANCETS 30G [id number] LANCETS Inactive EQL TRUETEST TEST IN VITRO [...] FLONASE ALLERGY RELIEF 50 MCG/ACT NASAL SUSPENSION [id number] FLUTICASONE PROPIONATE Inactive Immunizations Vaccine Administration Date [...] Fluvirin, Fluarix, Agriflu(>=18 yo)) Fluzone (>3 yrs.) [[id number]] Influenza, seasonal, injectable pneumococcal immunization administered Pneumovax [...] ... - Chemistry sodium, serum 135 mmol/L 132-257 9966/08/22 carbon dioxide, venous blood 28.4 mmol/L 21.0-32.0 [...] mg/g {creat} 0-29 cholesterol, serum 263 mg/dL 225-803 0823/08/22 triglyceride, serum, fasting 1312 mg/dL 30-200 HDL [...] ordered Encounters Code Encounter Date Provider Facility CPT-04071 [id number] Vst-Est Level IV 15:10:01 ASSOCIATE SALES MANAGER Mason Loredo MD [facility]-53866 [id number] Vst-Est Level III 11:00:25 CDT Shavonne Feliciano PA-C [facility] CPT-58511 Level 3 Est. Patient 09:12:14 ASSOCIATE SALES MANAGER Mima Erazo [facility] CPT-82658 Level 3 Est. Patient 16:52:51 CDT Vanessa Hickey MD [facility] CPT-37896 Level 3 Est. Patient 17:40:16 CDT Mima Erazo [facility] CPT-80967 Level 3 Est. Patient 14:34:52 CDT Vanessa Hickey MD [facility] CPT-87981 Level 3 Est. Patient 16:27:51 CDT Mima Erazo [facility] CPT-38174 Level 3 Est. Patient 14:39:00 ASSOCIATE SALES MANAGER Vanessa Hickey MD [facility] CPT-97456 Level 2 Est. Patient 18:43:34 CDT Mima Erazo [facility] CPT-77824 Level 3 Est. Patient 16:22:09 CDT Cherelle Avila [facility] CPT-33355 Level 4 Est. Patient 17:55:14 CDT Mima Erazo [facility] CPT-62523 Level 2 Est. Patient 17:13:21 CDT Alina Castaneda MD PhD [facility] CPT-10181 Level 3 Est. Patient 14:46:15 CDT Vanessa Hickey MD [facility]-33001 Level 3 Est. Patient 09:34:56 CDT Alina Castaneda MD [facility]-47684 Level 3 Est. Patient 21:40:19 CDT Mima Erazo APRN [facility] CPT-19235 Level 3 Est. Patient 09:26:40 CDT Marvel Charles [facility]-57018 Level 3 Est. Patient 12:36:43 CDT Vanessa Hickey MD [facility]-63360 Level 3 Est. Patient 12:57:49 CDT Vanessa Hickey MD [facility]-91089 Level 3 Est. Patient 00:28:25 CDT Alina Castaneda MD [facility]74417 Level 2 Est. Patient 12:52:14 CDT Alina Castaneda MD [facility]69396 Level 3 Est. Patient 11:51:18 ASSOCIATE SALES MANAGER Alina Castaneda MD [facility] [place]-89455 Level 3 Est. Patient 10:09:22 ASSOCIATE SALES MANAGER Alina Castaneda MD [facility]31411 Level 3 Est. Patient 14:36:26 ASSOCIATE SALES MANAGER Marvel Charles [facility]-41172 Level 3 Est. Patient 13:34:47 ASSOCIATE SALES MANAGER Alina Castaneda MD [facility]24596 Level 3 Est. Patient 19:52:08 ASSOCIATE SALES MANAGER Alina Castaneda MD [facility] [place]-86888 Level 3 Est. Patient 10:01:51 ASSOCIATE SALES MANAGER Marvel Charles [facility]-21633 Level 3 Est. Patient 21:54:06 CDT Vanessa Hickey MD [facility]-21975 Level 3 Est. Patient 08:54:46 CDT Alina Castaneda MD [facility] [place]-70984 Level 3 Est. Patient 09:32:11 CDT Marvel Thurstonestela [facility]-08207 Level 3 Est. Patient 12:02:49 CDT Alina Castaneda MD [facility] [place]-43456 Level 3 Est. Patient 19:17:33 CDT Alina Castaneda MD [facility] [place]-58360 Level 3 Est. Patient 13:19:10 CDT Marvel Gurdeepajayestela [facility]-18557 Level 3 Est. Patient 08:20:05 CDT Alina Castaneda MD [facility] [place]-84654 Level 3 Est. Patient 15:17:18 CDT Alina Castaneda MD [facility] [place]-68916 Level 3 Est. Patient 14:25:36 ASSOCIATE SALES MANAGER [facility] Level 3 Est. Patient 10:09:15 ASSOCIATE SALES MANAGER [facility]07181 Level 3 Est. Patient 21:28:43 CDT Alina Castaneda MD [facility] [place]-74687 Level 3 Est. Patient 15:20:11 CDT Marvel Araceli [facility]-77670 Level 4 Est. Patient 19:08:12 CDT Alina Castaneda MD [facility] [place]-75365 Level 3 Est. Patient 15:06:39 CDT Marvel Araceli [facility]-21939 Level 4 Est. Patient 17:48:15 CDT Alina Castaneda MD [facility] [place]-84220 Level 3 Est. Patient 14:53:49 CDT Alina Castaneda MD [facility] [place]-47311 Level 3 Est. Patient 09:35:16 CDT Alina Castaneda MD [facility] [place]-59699 Level 3 Est. Patient 12:23:22 CDT Alina Castaneda MD [facility] [place]-21467 Level 3 Est. Patient 16:19:15 CDT Alina Castaneda MD [facility] [place]-62780 Level 3 Est. Patient 21:39:56 ASSOCIATE SALES MANAGER Alina Castaneda MD [facility] [place]-11807 Level 4 Est. Patient 14:12:56 ASSOCIATE SALES MANAGER Alina Castaneda MD [facility] [place]-58165 Level 2 Est. Patient 15:34:57 ASSOCIATE SALES MANAGER Alina Castaneda MD [facility] [place]-28248 Level 3 Est. Patient 12:17:04 ASSOCIATE SALES MANAGER Alina Castaneda MD [facility] [place]-05870 Level 3 Est. Patient 09:18:18 ASSOCIATE SALES MANAGER Marvel Charles [facility]-19339 Level 2 Est. Patient 21:50:24 CDT Alina Castaneda MD [facility] [place]-26516 Level 3 Est. Patient 09:17:28 CDT Marvel Charles [facility]-80720 Level 4 Est. Patient 18:54:02 CDT Alina Castaneda MD [facility] [place]-16406 Level 3 Est. Patient 10:47:10 CDT Alina Castaneda MD [facility] [place]-74692 Level 3 Est. Patient 09:22:20 CDT Marvel Charles [facility]-50783 Level 3 Est. Patient 16:39:43 CDT [facility]ivia Charles [facility] CPT-95098 Level 3 Est. Patient 16:05:16 CDT Alina Castaneda MD [facility] CPT-25748 Level 3 Est. Patient 00:29:15 CDT Alina Castaneda MD [facility] [place]-78251 Level 3 Est. Patient 10:49:22 ASSOCIATE SALES MANAGER Marvel Thurstonestela [facility] CPT-32733 Level 3 Est. Patient 21:30:19 ASSOCIATE SALES MANAGER Alina Castaneda MD [facility] [place]-95365 Level 4 Est. Patient 17:04:11 ASSOCIATE SALES MANAGER [facility] CPT-70550 Level 3 Est. Patient 15:34:11 ASSOCIATE SALES MANAGER [facility] CPT-02856 Level 2 Est. Patient 12:51:58 ASSOCIATE SALES MANAGER Alina Castaneda MD PhD [facility] CPT-14030 Level 3 Est. Patient 13:20:01 ASSOCIATE SALES MANAGER Alina Castaneda MD [facility] CPT-28428 Level 3 Est. Patient 09:23:35 CDT Alina Castaneda MD PhD [facility] Procedures Code Procedure Name Date Entry Date Standard Description CPT-94752 Level 2 Chcf 14:06:10 ASSOCIATE SALES MANAGER CPT-G0439 [facility] Annual Wellness Exam 15:49:52 ASSOCIATE SALES MANAGER CPT-22816 Level 3 Chcf 13:20:19 CDT CPT-TCMM Transitional Care Mgmt-Moderate 12:32:19 CDT CPT-57026 Level 2 Chcf 09:01:11 CDT CPT-70832 HGBA1C - LAB USE ONLY 09:30:27 ASSOCIATE SALES MANAGER CPT-16929 BMP - LAB USE ONLY 09:30:27 ASSOCIATE SALES MANAGER CPT-91075 Venipuncture Draw Fee 09:30:26 ASSOCIATE SALES MANAGER CPT-TCMM Transitional Care Mgmt-Moderate 10:25:31 CDT CPT-62358 Bladder Scan 14:34:53 CDT CPT-21796 Bladder Scan 14:39:01 ASSOCIATE SALES MANAGER CPT-TCMM Transitional Care Mgmt-Moderate 10:30:19 ASSOCIATE SALES MANAGER CPT-22783 Bladder Scan 12:36:44 CDT CPT-60647 Bladder Scan 21:54:06 CDT CPT-G0008 Administration of Influenza Virus Vaccine 13:05:26 CDT CPT-94930 Fluzone Quadrivalent Intramuscular Suspension 0.5 ML 13: 05:26 CDT CPT-72824 Administration single or combination vaccine inc oral 11 :49:51 CDT CPT-21952 Pneumovax 11:49:51 CDT CPT-94603 Ribs unilateral 2V 12:37:22 ASSOCIATE SALES MANAGER CPT-70456 Chest 2V Frontal and Lat 17:15:26 CDT CPT-67594 Abx/Therapy Injection 18:54:02 CDT CPT-J0696 Rocephin 1000 mg (Ceftriaxone) 16:00:32 CDT CPT-77922 Chest 2V Frontal and Lat 15:26:45 CDT CPT-17494 Chest 2V Frontal and Lat 10:23:27 CDT CPT-91207 Venipuncture Draw Fee 10:11:00 CDT CPT-55703 Administration single or combination vaccine inc oral 11 :56:38 CDT CPT-81193 Influenza split virus > age 3 11:56:38 CDT CPT-47186 Venipuncture Draw Fee 08:49:54 ASSOCIATE SALES MANAGER CPT-42961 EKG Trac and Interp 17:54:19 ASSOCIATE SALES MANAGER
--- OUTSIDE RECORDS SUMMARY | 2018-07-02 14:59 | XMS REPORT | Clinical Summary ---
Author Author Admin, MIKEE Organization [facility] Address Unknown Phone Unavailable Allergies, Adverse Reactions, [...] unspecified hyperlipidemia Familial hypercholesterolemia 272.4 Active Mason Loerdo MD Other and unspecified hyperlipidemia HYPERTENSION 401.9 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 Erazo BAKERY CLERK Benign paroxysmal positional vertigo Vertigo, benign paroxysmal position 386.11 Inactive Mima Erazo BAKERY CLERK Benign paroxysmal positional vertigo High-risk sexual behavior [...] Loredo MD Body Mass Index 31.0-31.9, adult WOUND, OPEN, [...] Body Mass Index 31.0-31.9 Adult Inactive Gabrielle Alma NOEL Body Mass Index 30.0-30.9 Adult Inactive Paige Lange MA Medication List Medication Instructions Start Date Stop Date Generic Name NDC Status Provider Patient Instruction RISPERDAL 2 MG ORAL TABLET Take 1 tablet by mouth three times a day RISPERIDONE 90369701124 Active Mya Ledezma MA Active [facility] MILK OF MAGNESIA 400 MG/5ML ORAL SUSPENSION 30ml by mouth bid prn MAGNESIUM HYDROXIDE 69909726407 No Longer Active Mya Ledezma MA Active [facility] MELATONIN 3 MG ORAL TABLET 1 tab nightly MELATONIN 77520390473 No Longer Active Mya Ledezma MA Active AMBIEN 10 MG ORAL TABLET 1 at night as needed for sleep ZOLPIDEM TARTRATE 40834961109 Active Mason Loredo MD Active VERAPAMIL HCL ER 180 MG ORAL TABLET EXTENDED RELEASE 1 pill by mouth twice daily, for migraine prevention VERAPAMIL HCL 44153819712 No Longer Active Mason Loredo MD Active EFFEXOR XR 150 MG ORAL CAPSULE EXTENDED RELEASE 24 HOUR 1 tab daily VENLAFAXINE HCL 99518711100 No Longer Active Mason Loredo MD Active VENLAFAXINE HCL ER 150 MG ORAL CAPSULE EXTENDED RELEASE 24 HOUR 1 tablet 2 times a day VENLAFAXINE HCL 43078155871 Active Mason Loredo MD Active TOPAMAX 25 MG ORAL TABLET 1 tab BID PRN TOPIRAMATE 87807940277 No Longer Active Mason Loredo MD Active LATUDA 40 MG ORAL TABLET 1.5 tab by mouth in the afternoon 05/23 LURASIDONE HCL 87482125391 No Longer Active Mason Loredo MD Active QUETIAPINE FUMARATE 100 MG ORAL TABLET 1 tab PO at HS QUETIAPINE FUMARATE 90366193959 No Longer Active Mason Loredo MD Active QUETIAPINE FUMARATE 25 MG ORAL TABLET 2 tabs BID QUETIAPINE FUMARATE 83563258591 No Longer Active Mason Loredo MD Active ATORVASTATIN CALCIUM 10 MG ORAL TABLET Take 1 tablet by mouth daily. Recheck labs in 3 months ATORVASTATIN CALCIUM 93130213825 Active Mya Ledezma MA Active VERAPAMIL HCL ER 180 MG ORAL TABLET EXTENDED RELEASE 1 tab BID VERAPAMIL HCL 00685150583 Active Shavonne Feliciano PA-C Active SEROQUEL 25 MG ORAL TABLET Take two tabs by mouth in the morning, take 4 tablets at night QUETIAPINE FUMARATE 82275954539 No Longer Active Shavonne Feliciano PA-C Active AMARYL 2 MG ORAL TABLET give 2.5 tabs PO daily GLIMEPIRIDE 85347203357 No Longer Active Shavonne Feliciano PA-C Active AMARYL 2 MG ORAL TABLET give 2 tabs PO in the morning GLIMEPIRIDE 82980512833 Active Shavonne Feliciano PA-C Active FENOFIBRATE 145 MG ORAL TABLET 1 tab PO in the morning FENOFIBRATE 38474058230 Active Shavonne Feliciano PA-C Active SEROQUEL 100 MG ORAL TABLET 1 tab daily QUETIAPINE FUMARATE 17464263297 No Longer Active Shavonne Feliciano PA-C Active [facility] MELATONIN 3 MG ORAL TABLET give 1 tab by mouth at HS MELATONIN 54850714019 No Longer Active Gabrielle Marquez MA Active NOVOLOG FLEXPEN 100 UNIT/ML SUBCUTANEOUS SOLUTION PEN-INJECTOR sliding scale INSULIN ASPART 74515892253 Active Gabrielle Marquez MA Active METFORMIN HCL 1000 MG ORAL TABLET 1 tab by mouth BID METFORMIN HCL 53112111605 Active Gabrielle Marquez MA Active TAMSULOSIN HCL 0.4 MG ORAL CAPSULE give 2 capsules PO each evening TAMSULOSIN HCL 85148525526 No Longer Active Gabrielle Marquez MA Active VITAMIN D 2000 UNIT ORAL CAPSULE Take one by mouth daily CHOLECALCIFEROL 89066935715 No Longer Active Gabrielle Marquez MA Active LEVEMIR 100 UNIT/ML SUBCUTANEOUS SOLUTION 10 u at bedtime INSULIN DETEMIR 86724460095 Active Gabrielle Marquez MA Active TAMSULOSIN HCL 0.4 MG ORAL CAPSULE 2 every night for urine flow TAMSULOSIN HCL 83381147771 Active Gabrielle Marquez MA Active DIVALPROEX SODIUM 125 MG ORAL TABLET DELAYED RELEASE 1 tab each morning 02/17 DIVALPROEX SODIUM 70141876691 Active Gabrielle Marquez MA Active D 1000 TABLET 2 tab by mouth BID CHOLECALCIFEROL TABS 86770584134 Active Gabrielle Marquez MA Active ALIGN 4 MG ORAL CAPSULE 1 tab at hs PROBIOTIC PRODUCT 65945399282 Active Gabrielle Marquez MA Active CLONAZEPAM 1 MG ORAL TABLET 1 pill by mouth two times daily CLONAZEPAM 95555840701 Active Gabrielle Marquez MA Active OCEAN NASAL SPRAY SOLUTION 2 sprays in both nostrils every 8 hours as needed for dry mucous membranes SALINE SOLN 49451339900 Active Mason Loredo MD Active BETHANECHOL CHLORIDE 25 MG ORAL TABLET Take 1 tablet mouth four times a day BETHANECHOL CHLORIDE 42854295130 Active Mason Loredo MD Active [facility] LUBRICANT EYE DROPS 0.4-0.3 % OPHTHALMIC SOLUTION POLYETHYL GLYCOL-PROPYL GLYCOL 42058651943 No Longer Active Mason Loredo MD Active TYLENOL 8 HOUR 650 MG ORAL TABLET EXTENDED RELEASE 1 tab QID prn ACETAMINOPHEN 27856225120 No Longer Active Mason Loredo MD Active TIMOPTIC OCUDOSE 0.5 % OPHTHALMIC SOLUTION instill one drop into both eyes q12H TIMOLOL MALEATE 54797855815 Active Mason Loredo MD Active TRAZODONE HCL 100 MG ORAL TABLET 1 every night to prevent headaches TRAZODONE HCL 79746025324 No Longer Active Mason Loredo MD Active TRAVATAN Z 0.004 % OPHTHALMIC SOLUTION 1 drop each eye daily 2017 TRAVOPROST 88228243493 No Longer Active Mason Loredo MD Active LATUDA 60 MG ORAL TABLET 1 tab daily LURASIDONE HCL 79539549213 No Longer Active Mason Loredo MD Active MORPHINE SULFATE ER 30 MG ORAL TABLET EXTENDED RELEASE Take one capsule BID MORPHINE SULFATE 72722155910 No Longer Active Mason Loredo MD Active TRUE METRIX BLOOD GLUCOSE TEST IN VITRO STRIP Check blood sugars 3x/day. 2015 GLUCOSE BLOOD 35123353442 No Longer Active Mason Loredo MD Active TRUEPLUS LANCETS 30G 3x a day LANCETS 19751736112 No Longer Active Mason Loredo MD Active MYLANTA GAS RELIEF MAXIMUM STR 125 MG ORAL CAPSULE 30cc every 4 hours prn SIMETHICONE 90772281385 No Longer Active Mason Loredo MD Active IMODIUM A-D 2 MG ORAL TABLET 1 tab QID as needed LOPERAMIDE HCL 92840976342 No Longer Active Mason Loredo MD Active FLONASE ALLERGY RELIEF 50 MCG/ACT NASAL SUSPENSION One spray each nostril BID x 1 week then daily FLUTICASONE PROPIONATE 93584949661 No Longer Active Mason Loredo MD Active FLUVOXAMINE MALEATE 100 MG ORAL TABLET take one tab every AM et HS, and take 1 /2 tab at noon FLUVOXAMINE MALEATE 78547321172 No Longer Active Mason Loredo MD Active BD PEN NEEDLE MINI U/F 31G X 5 MM 4 a day INSULIN PEN NEEDLE 70936383464 No Longer Active Mason Loredo MD Active AMITIZA 24 MCG ORAL CAPSULE Take one capsule BID for constipation LUBIPROSTONE 39671461670 No Longer Active Mason Loredo MD Active TRUEPLUS LANCETS 30G 3 a day LANCETS 12649588903 No Longer Active Mason Loredo MD Active CORICIDIN HBP CONGESTION/COUGH 10-200 MG ORAL CAPSULE Take as directed on box as needed for cold/flu symptoms DEXTROMETHORPHAN- GUAIFENESIN 25800528840 No Longer Active Mason Loredo MD Active OMEGA-3 300 MG ORAL CAPSULE 4 caps by mouth daily OMEGA-3 FATTY ACIDS 31101747825 No Longer Active Mason Loredo MD Active HUMALOG KWIKPEN 100 UNIT/ML SUBCUTANEOUS SOLUTION PEN-INJECTOR sliding scale if needed INSULIN LISPRO (HUMAN) 20485278596 No Longer Active Mason Loredo MD Active TRUETEST TEST IN VITRO STRIP check blood sugars 3x/day GLUCOSE BLOOD 59762974094 No Longer Active Mason Loredo MD Active ALFUZOSIN HCL ER 10 MG ORAL TABLET EXTENDED RELEASE 24 HOUR 1 tablet daily ALFUZOSIN HCL 72993047029 No Longer Active Mason Loredo MD Active BD INSULIN SYRINGE 28G X 1/2" 1 ML 1 four times per day INSULIN SYRINGE-NEEDLE U-100 83303881239 No Longer Active Mason Loredo MD Active LEVEMIR FLEXTOUCH 100 UNIT/ML SUBCUTANEOUS SOLUTION PEN-INJECTOR 60 units SQ each evening, for diabetes INSULIN DETEMIR 46256533316 No Longer Active Mason Loredo MD Active LACTULOSE 20 GM/30ML ORAL SOLUTION give 30 Ml PO BID PRN LACTULOSE 59719430171 Active Mason Loredo MD Active COLACE 100 MG ORAL CAPSULE 1 tab BID PRN DOCUSATE SODIUM 64214667743 Active Mason Loredo MD Active LATANOPROST 0.005 % OPHTHALMIC SOLUTION instill 1 drop in both eyes at bed time LATANOPROST 73022424199 Active Mason Loredo MD Active MIRALAX ORAL POWDER 17g by mouth q12h, for constipation POLYETHYLENE GLYCOL 3350 37030519934 Active Mason Loredo MD Active IBUPROFEN 400 MG ORAL TABLET 1 tab Q6H PRN IBUPROFEN 36626005015 Active Mason Loredo MD Active FLUVOXAMINE MALEATE 50 MG ORAL TABLET 1 tab by mouth daily 04/01 FLUVOXAMINE MALEATE 84279008165 No Longer Active Mima Erazo APRN Active TRUE METRIX METER w/Device KIT Check blood sugars 3x/day BLOOD GLUCOSE MONITORING SUPPL 12307228752 Active Marvel MARROQUIN Active LATUDA 60 MG ORAL TABLET Take one by mouth daily LURASIDONE HCL 83539617368 No Longer Active Mima Erazo APRN Active TRAVATAN Z 0.004 % OPHTHALMIC SOLUTION 1 gtt each eye daily TRAVOPROST 28337631670 No Longer Active Mason Loredo MD Active LISINOPRIL 20 MG ORAL TABLET 1 BID LISINOPRIL 99638127189 No Longer Active Mason Loredo MD Active ZOLPIDEM TARTRATE 10 MG ORAL TABLET take at bedtime ZOLPIDEM TARTRATE 96680933541 No Longer Active Mason Loredo MD Active HYDROCODONE-ACETAMINOPHEN 5-325 MG ORAL TABLET 2 tabs by mouth three times daily for pain HYDROCODONE-ACETAMINOPHEN 96146553914 No Longer Active Mason Loredo MD Active ZOFRAN 4 MG ORAL TABLET 1 po q4hr PRN Nausea ONDANSETRON HCL 24780247915 No Longer Active Mason Loredo MD Active LOMOTIL 2.5-0.025 MG ORAL TABLET take 1-2 tabs PO after each stool, no more than 8 in 24 hours DIPHENOXYLATE-ATROPINE 97187234401 No Longer Active Mason Loredo MD Active COLACE 100 MG ORAL CAPSULE 1 pill by mouth twice daily, for constipation 2014 DOCUSATE SODIUM 54537439398 No Longer Active Mima Erazo APRN Active TOLTERODINE TARTRATE 2 MG ORAL TABLET 1 pill twice daily, for bladder TOLTERODINE TARTRATE 66800094561 No Longer Active Vanessa Hickey MD Active AMITIZA 24 MCG ORAL CAPSULE Take one capsule BID for constipation. LUBIPROSTONE 11865929330 No Longer Active Vanessa Hickey MD Active METOPROLOL SUCCINATE ER 100 MG ORAL TABLET EXTENDED RELEASE 24 HOUR 1 by mouth daily for blood pressure METOPROLOL SUCCINATE 05630928050 No Longer Active Grace Nascimento RMA Active METFORMIN HCL ER 500 MG ORAL TABLET EXTENDED RELEASE 24 HOUR Take three tablets by mouth everyday METFORMIN HCL 67349899797 No Longer Active Grace Nascimento RMA Active LOVAZA 1 GM ORAL CAPSULE 4 daily (for triglycerides) [id number] ETHYL ESTERS 75277436996 No Longer Active Grace Azam RMA Active TRAZODONE HCL 100 MG ORAL TABLET 1 tab by mouth for sleep TRAZODONE HCL 12377691340 No Longer Active Grace Nelsonb RMA Active NOVOFINE 32G X 6 MM use one four times per day INSULIN PEN NEEDLE 11569821037 No Longer Active Grace Nelsonb RMA Active BACTROBAN 2 % EXTERNAL CREAM Apply to affected area BID for up to 10 days MUPIROCIN CALCIUM 92206921435 No Longer Active Grace Nascimento RMA Active KEFLEX 500 MG ORAL CAPSULE 1 po BID x 7 days CEPHALEXIN 62401562793 No Longer Active Cherelle Avila APRN Active FLUVOXAMINE MALEATE 100 MG ORAL TABLET Take one (1) tablet by mouth am, 1/2 at noon FLUVOXAMINE MALEATE 41541026793 No Longer Active Mima Erazo APRN Active FLUVOXAMINE MALEATE 100 MG ORAL TABLET Take 1/2 tab at noon 03/04 FLUVOXAMINE MALEATE 39965500597 No Longer Active Cherelle Avila APRN Active ACCU-CHEK ROSA DEVICE Use device to check blood sugars BLOOD GLUCOSE MONITORING SUPPL 40476351825 No Longer Active Marvel MARROQUIN Active ACCU-CHEK ROSA IN VITRO STRIP use strips with device to check blood sugars 3 times daily GLUCOSE BLOOD 19361114999 No Longer Active Marvel MARROQUIN Active CYCLOBENZAPRINE HCL 10 MG ORAL TABLET 1 tablet by mouth three times daily, scheduled CYCLOBENZAPRINE HCL 25338824147 No Longer Active Alina Castaneda MD PhD Active HUMALOG 100 UNIT/ML SUBCUTANEOUS SOLUTION Take 20 units with breakfast, 10u with lunch and suppetr. INSULIN LISPRO (HUMAN) 62791292805 No Longer Active Alina Castaneda MD PhD Active TRUETEST TEST IN VITRO STRIP check sugars 4x/day GLUCOSE BLOOD 52268304592 No Longer Active Alina Castaneda MD PhD Active MORPHINE SULFATE 30 MG ORAL TABLET 1 pill by mouth twice daily, for pain 2013 MORPHINE SULFATE 41618567421 No Longer Active Mason Loredo MD Active ACYCLOVIR 400 MG ORAL TABLET 1 pill three times daily x 5 days, for cold sore outbreak ACYCLOVIR 44455144073 No Longer Active Alina Castaneda MD PhD Active PENICILLIN V POTASSIUM 500 MG ORAL TABLET 1 pill by mouth three times daily PENICILLIN V POTASSIUM 95718646873 No Longer Active Alina Castaneda MD PhD Active UROXATRAL 10 MG ORAL TABLET EXTENDED RELEASE 24 HOUR Take 1 tablet by mouth daily ALFUZOSIN HCL 43418710183 No Longer Active Alina Castaneda MD PhD Active THIOTHIXENE 5 MG ORAL CAPSULE by mouth twice a day THIOTHIXENE 34939221057 No Longer Active Alina Castaneda MD PhD Active ZYPREXA 7.5 MG ORAL TABLET 1 at HS OLANZAPINE 10730299275 No Longer Active Alina Castaneda MD PhD Active DETROL LA 4 MG ORAL CAPSULE EXTENDED RELEASE 24 HOUR Take 1 tablet by mouth daily TOLTERODINE TARTRATE 74731335027 No Longer Active Alina Castaneda MD PhD Active TERESE CONTOUR TEST IN VITRO STRIP monitor blood sugars 3x/day GLUCOSE BLOOD 06471935491 No Longer Active Alina Castaneda MD PhD Active EQL TRUETEST TEST IN VITRO STRIP Test blood sugar TID GLUCOSE BLOOD 53762161542 No Longer Active Alina Castaneda MD PhD Active FLUTICASONE PROPIONATE 50 MCG/ACT NASAL SUSPENSION 2 sprays each nostril qDay x 30 days FLUTICASONE PROPIONATE 80445703085 No Longer Active Alina Castaneda MD PhD Active IBUPROFEN 200 MG ORAL TABLET 1 Q 6 hr. PRN IBUPROFEN 54350012290 No Longer Active Alina Castaneda MD PhD Active NIACIN ER 500 MG ORAL TABLET EXTENDED RELEASE 4 qHS (for triglycerides) 01/13 NIACIN 36094321878 No Longer Active Alina Castaneda MD PhD Active SAPHRIS 5 MG SUBLINGUAL TABLET SUBLINGUAL by mouth twice a day ASENAPINE MALEATE 93121490985 No Longer Active Maljohn Ziglari PIPE COVERER HELPER Active ACETAMINOPHEN 500 MG ORAL TABLET 2 Q 6 hr. PRN ACETAMINOPHEN 57259774744 No Longer Active Mallashondaeh Ziglari PIPE COVERER HELPER Active ORPHENADRINE CITRATE ER 100 MG ORAL TABLET EXTENDED RELEASE 12 HOUR 1 every 12 hr. as needed ORPHENADRINE CITRATE 08624755492 No Longer Active Alina Castaneda MD PhD Active NIACIN ER 500 MG ORAL TABLET EXTENDED RELEASE 2 qHS NIACIN 66627650681 No Longer Active Alina Castaneda MD PhD Active AMOXICILLIN 500 MG ORAL CAPSULE 2 po BID x 10 days AMOXICILLIN 39141156181 No Longer Active Alina Castaneda MD PhD Active HYDROCODONE-ACETAMINOPHEN 7.5-325 MG ORAL TABLET 1 four times a day as needed for pain HYDROCODONE-ACETAMINOPHEN 41384246454 No Longer Active Alnia Castaneda MD PhD Active DOXEPIN HCL 10 MG ORAL CAPSULE Take 1 tablet by mouth daily DOXEPIN HCL 14493851803 No Longer Active Salina ROJAS Active NAVANE 10 MG CAPS 1/2 tablet twice a day THIOTHIXENE No Longer Active Salina ROJAS Active CYCLOBENZAPRINE HCL 10 MG ORAL TABLET 1/2 tablet by mouth every 8 hours as needed for muscle spasms CYCLOBENZAPRINE HCL 28311289642 No Longer Active Alina Castaneda MD PhD Active BACTROBAN 2 % EXTERNAL CREAM apply to ear and nose twice daily MUPIROCIN CALCIUM 22505131902 No Longer Active Alina Castaneda MD PhD Active HYDROCODONE-ACETAMINOPHEN 5-325 MG ORAL TABLET take one tablet by mouth every four hours as needed for pain HYDROCODONE-ACETAMINOPHEN 07817657170 No Longer Active Alina Castaneda MD PhD Active ZYPREXA 5 MG ORAL TABLET take one tablet by mouth every evening OLANZAPINE 86370940990 No Longer Active Alina Castaneda MD PhD Active ALBUTEROL SULFATE (2.5 MG/3ML) 0.083% INHALATION NEBULIZATION SOLUTION one vial per nebulizer TID and PRN cough/soa ALBUTEROL SULFATE 11481878654 No Longer Active Alina Castaneda MD PhD Active GUAIFENESIN ER 600 MG ORAL TABLET EXTENDED RELEASE 12 HOUR 1 tablet by mouth twice daily if needed for cough GUAIFENESIN 37057087352 No Longer Active Marvel MARROQUIN Active AZITHROMYCIN 500 MG INTRAVENOUS SOLUTION RECONSTITUTED 1 po q day AZITHROMYCIN 35917953169 No Longer Active Alina Castaneda MD PhD Active PROMETHAZINE-CODEINE 6.25-10 MG/5ML ORAL SYRUP 1 tsp po q 6 hours prn cough PROMETHAZINE-CODEINE 41098434264 No Longer Active Alina Castaneda MD PhD Active CEFDINIR 300 MG ORAL CAPSULE by mouth twice a day CEFDINIR 83586911356 No Longer Active Alina Castaneda MD PhD Active METFORMIN HCL ER 500 MG ORAL TABLET EXTENDED RELEASE 24 HOUR Take 3 tablets by mouth everyday METFORMIN HCL 26436936458 No Longer Active Alina Castaneda MD PhD Active LEVEMIR 100 UNIT/ML SUBCUTANEOUS SOLUTION 90 units SQ qHS INSULIN DETEMIR 46459070189 No Longer Active Marvel MARROQUIN Active TOPROL XL 100 MG ORAL TABLET EXTENDED RELEASE 24 HOUR 1 @ HS METOPROLOL SUCCINATE 00825486597 No Longer Active Marvel MARROQUIN Active ALLOPURINOL 300 MG ORAL TABLET Take one by mouth daily ALLOPURINOL 72472617520 Active Mima Erazo BAKERY CLERK Active ZYPREXA 10 MG ORAL TABLET Take one by mouth daily OLANZAPINE 08461345478 No Longer Active Alina Castaneda MD PhD Active NOVOLOG 100 UNIT/ML SUBCUTANEOUS SOLUTION 40 units with every meal INSULIN ASPART 60972508456 No Longer Active Alina Castaneda MD PhD Active VERAPAMIL HCL ER 120 MG ORAL TABLET EXTENDED RELEASE 1 qPM 09/08 VERAPAMIL HCL 11890391641 No Longer Active Salina ROJAS Active ZYPREXA 15 MG ORAL TABLET Take 1 tablet by mouth daily OLANZAPINE 38178706934 No Longer Active Marvel MARROQUIN Active ALBUTEROL SULFATE (2.5 MG/3ML) 0.083% INHALATION NEBULIZATION SOLUTION 1 neb tid and prn cough ALBUTEROL SULFATE 99405644907 No Longer Active Alina Castaneda MD PhD Active LANTUS 100 UNIT/ML SUBCUTANEOUS SOLUTION 60 units sq q hs INSULIN GLARGINE 60514035397 No Longer Active CRYSTAL Suarez Active ALBUTEROL SULFATE (2.5 MG/3ML) 0.083% INHALATION NEBULIZATION SOLUTION 1 neb tid and prn cough ALBUTEROL SULFATE (2.5 MG/3ML) 0.083% INHALATION NEBULIZATION SOLUTION 320307 ALBUTEROL SULFATE Inactive ZYPREXA 15 MG ORAL TABLET Take 1 tablet by mouth daily ZYPREXA 15 MG ORAL TABLET 800828 OLANZAPINE Inactive VERAPAMIL HCL ER 120 MG ORAL TABLET EXTENDED RELEASE 1 qPM 09/08 VERAPAMIL HCL ER 120 MG ORAL TABLET EXTENDED RELEASE VERAPAMIL HCL Inactive ZYPREXA 10 MG ORAL TABLET Take one by mouth daily ZYPREXA 10 MG ORAL TABLET 558029 OLANZAPINE Inactive TOPROL XL 100 MG ORAL TABLET EXTENDED RELEASE 24 HOUR 1 @ HS TOPROL XL 100 MG ORAL TABLET EXTENDED RELEASE 24 HOUR METOPROLOL SUCCINATE Inactive LEVEMIR 100 UNIT/ML SUBCUTANEOUS SOLUTION 90 units SQ qHS LEVEMIR 100 UNIT/ML SUBCUTANEOUS SOLUTION INSULIN DETEMIR Inactive PROMETHAZINE-CODEINE 6.25-10 MG/5ML ORAL SYRUP 1 tsp po q 6 hours prn cough PROMETHAZINE-CODEINE 6.25-10 MG/5ML ORAL SYRUP 252476 PROMETHAZINE-CODEINE Inactive GUAIFENESIN ER 600 MG ORAL TABLET EXTENDED RELEASE 12 HOUR 1 tablet by mouth twice daily if needed for cough GUAIFENESIN ER 600 MG ORAL TABLET EXTENDED RELEASE 12 HOUR GUAIFENESIN Inactive ALBUTEROL SULFATE (2.5 MG/3ML) 0.083% INHALATION NEBULIZATION SOLUTION one vial per nebulizer TID and PRN cough/soa ALBUTEROL SULFATE (2.5 MG/3ML) 0.083% INHALATION NEBULIZATION SOLUTION 038624 ALBUTEROL SULFATE Inactive ZYPREXA 5 MG ORAL TABLET take one tablet by mouth every evening ZYPREXA 5 MG ORAL TABLET 591887 OLANZAPINE Inactive HYDROCODONE-ACETAMINOPHEN 5-325 MG ORAL TABLET take one tablet by mouth every four hours as needed for pain HYDROCODONE-ACETAMINOPHEN 5-325 MG ORAL TABLET 995444 HYDROCODONE-ACETAMINOPHEN Inactive BACTROBAN 2 % EXTERNAL CREAM apply to ear and nose twice daily BACTROBAN 2 % EXTERNAL CREAM 364089 MUPIROCIN CALCIUM Inactive CYCLOBENZAPRINE HCL 10 MG ORAL TABLET 1/2 tablet by mouth every 8 hours as needed for muscle spasms CYCLOBENZAPRINE HCL 10 MG ORAL TABLET 522860 CYCLOBENZAPRINE HCL Inactive NAVANE 10 MG CAPS 1/2 tablet twice a day NAVANE 10 MG CAPS THIOTHIXENE Inactive DOXEPIN HCL 10 MG ORAL CAPSULE Take 1 tablet by mouth daily DOXEPIN HCL 10 MG ORAL CAPSULE 0487140 DOXEPIN HCL Inactive HYDROCODONE-ACETAMINOPHEN 7.5-325 MG ORAL TABLET 1 four times a day as needed for pain HYDROCODONE-ACETAMINOPHEN 7.5-325 MG ORAL TABLET 453326 HYDROCODONE-ACETAMINOPHEN Inactive NIACIN ER 500 MG ORAL [...] hr. PRN ACETAMINOPHEN 500 MG ORAL TABLET 562097 ACETAMINOPHEN Inactive SAPHRIS 5 MG SUBLINGUAL TABLET SUBLINGUAL by mouth twice a day SAPHRIS 5 MG SUBLINGUAL TABLET SUBLINGUAL ASENAPINE MALEATE Inactive NIACIN ER 500 MG ORAL TABLET EXTENDED RELEASE 4 qHS (for triglycerides) 01/13 NIACIN ER 500 MG ORAL TABLET EXTENDED RELEASE NIACIN Inactive IBUPROFEN 200 MG ORAL TABLET 1 Q 6 hr. PRN IBUPROFEN 200 MG ORAL TABLET 349432 IBUPROFEN Inactive FLUTICASONE PROPIONATE 50 MCG/ACT NASAL SUSPENSION 2 sprays each nostril qDay x 30 days FLUTICASONE PROPIONATE 50 MCG/ACT NASAL SUSPENSION 3418015 FLUTICASONE PROPIONATE Inactive EQL TRUETEST TEST IN [...] at HS ZYPREXA 7.5 MG ORAL TABLET 277416 OLANZAPINE Inactive THIOTHIXENE 5 MG ORAL CAPSULE by mouth twice a day THIOTHIXENE 5 MG ORAL CAPSULE 842916 THIOTHIXENE Inactive UROXATRAL 10 MG ORAL TABLET EXTENDED RELEASE 24 HOUR Take 1 tablet by mouth daily UROXATRAL 10 MG ORAL TABLET EXTENDED RELEASE 24 HOUR ALFUZOSIN HCL Inactive ACYCLOVIR 400 MG ORAL TABLET 1 pill three times daily x 5 days, for cold sore outbreak ACYCLOVIR 400 MG ORAL TABLET 282724 ACYCLOVIR Inactive TRUETEST TEST IN VITRO STRIP check sugars 4x/day TRUETEST TEST IN VITRO STRIP GLUCOSE BLOOD Inactive HUMALOG 100 UNIT/ML SUBCUTANEOUS SOLUTION Take 20 units with breakfast, 10u with lunch and suppetr. HUMALOG 100 UNIT/ML SUBCUTANEOUS SOLUTION INSULIN LISPRO (HUMAN) Inactive CYCLOBENZAPRINE HCL 10 MG ORAL TABLET 1 tablet by mouth three times daily, scheduled CYCLOBENZAPRINE HCL 10 MG ORAL TABLET 889258 CYCLOBENZAPRINE HCL Inactive ACCU-CHEK ROSA IN VITRO STRIP use strips with device to check blood sugars 3 times daily ACCU-CHEK ROSA IN VITRO STRIP GLUCOSE BLOOD Inactive ACCU-CHEK ROSA DEVICE Use device to check blood sugars ACCU-CHEK ROSA DEVICE BLOOD GLUCOSE MONITORING SUPPL Inactive FLUVOXAMINE MALEATE 100 MG ORAL TABLET Take 1/2 tab at noon 03/04 FLUVOXAMINE MALEATE 100 MG ORAL TABLET 695371 FLUVOXAMINE MALEATE Inactive FLUVOXAMINE MALEATE 100 MG ORAL TABLET Take one (1) tablet by mouth am, 1/2 at noon FLUVOXAMINE MALEATE 100 MG ORAL TABLET 492079 FLUVOXAMINE MALEATE Inactive BACTROBAN 2 % EXTERNAL CREAM Apply to affected area BID for up to 10 days BACTROBAN 2 % EXTERNAL CREAM 665637 MUPIROCIN CALCIUM Inactive NOVOFINE 32G X 6 MM use one four times per day NOVOFINE 32G X 6 MM INSULIN PEN NEEDLE Inactive TRAZODONE HCL 100 MG ORAL TABLET 1 tab by mouth for sleep TRAZODONE HCL 100 MG ORAL TABLET 114628 TRAZODONE HCL Inactive LOVAZA 1 GM ORAL CAPSULE 4 daily (for triglycerides) LOVAZA 1 GM ORAL CAPSULE 439733 [id number] ETHYL ESTERS Inactive METFORMIN HCL ER 500 [...] bladder TOLTERODINE TARTRATE 2 MG ORAL TABLET 037570 TOLTERODINE TARTRATE Inactive COLACE 100 MG ORAL CAPSULE 1 pill by mouth twice daily, for constipation 2014 COLACE 100 MG ORAL CAPSULE 5576556 DOCUSATE SODIUM Inactive LOMOTIL 2.5-0.025 MG ORAL TABLET take 1-2 tabs PO after each stool, no more than 8 in 24 hours LOMOTIL 2.5-0.025 MG ORAL TABLET 7341025 DIPHENOXYLATE-ATROPINE Inactive ZOFRAN 4 MG ORAL TABLET 1 po q4hr PRN Nausea ZOFRAN 4 MG ORAL TABLET 734266 ONDANSETRON HCL Inactive HYDROCODONE-ACETAMINOPHEN 5-325 MG ORAL TABLET 2 tabs by mouth three times daily for pain HYDROCODONE-ACETAMINOPHEN 5-325 MG ORAL TABLET 741701 HYDROCODONE-ACETAMINOPHEN Inactive ZOLPIDEM TARTRATE 10 MG ORAL TABLET take at bedtime ZOLPIDEM TARTRATE 10 MG ORAL TABLET 202442 ZOLPIDEM TARTRATE Inactive LISINOPRIL 20 MG ORAL TABLET 1 BID LISINOPRIL 20 MG ORAL TABLET 632086 LISINOPRIL Inactive TRAVATAN Z 0.004 % OPHTHALMIC SOLUTION 1 gtt each eye daily TRAVATAN Z 0.004 % OPHTHALMIC SOLUTION TRAVOPROST Inactive LATUDA 60 MG ORAL TABLET Take one by mouth daily LATUDA 60 MG ORAL TABLET LURASIDONE HCL Inactive FLUVOXAMINE MALEATE 50 MG ORAL TABLET 1 tab by mouth daily 04/01 FLUVOXAMINE MALEATE 50 MG ORAL TABLET 146270 FLUVOXAMINE MALEATE Inactive LEVEMIR FLEXTOUCH 100 UNIT/ML [...] 30G 3 a day TRUEPLUS LANCETS 30G [id number] LANCETS Inactive AMITIZA 24 MCG ORAL CAPSULE [...] noon FLUVOXAMINE MALEATE 100 MG ORAL TABLET 419394 FLUVOXAMINE MALEATE Inactive FLONASE ALLERGY RELIEF 50 MCG/ACT NASAL SUSPENSION One spray each nostril BID x 1 week then daily FLONASE ALLERGY RELIEF 50 MCG/ACT NASAL SUSPENSION 0734382 FLUTICASONE PROPIONATE Inactive IMODIUM A-D 2 MG ORAL TABLET 1 tab QID as needed IMODIUM A-D 2 MG ORAL TABLET 583350 LOPERAMIDE HCL Inactive MYLANTA GAS RELIEF MAXIMUM STR 125 MG ORAL CAPSULE 30cc every 4 hours prn MYLANTA GAS RELIEF MAXIMUM STR 125 MG ORAL CAPSULE SIMETHICONE Inactive TRUEPLUS LANCETS 30G 3x a day TRUEPLUS LANCETS 30G [id number] LANCETS Inactive TRUE METRIX BLOOD GLUCOSE TEST [...] headaches TRAZODONE HCL 100 MG ORAL TABLET 220087 TRAZODONE HCL Inactive TYLENOL 8 HOUR 650 [...] evening TAMSULOSIN HCL 0.4 MG ORAL CAPSULE 375951 TAMSULOSIN HCL Inactive [facility] MEL[facility]ONIN 3 MG ORAL TABLET give 1 tab by mouth at HS [facility] MELATONIN 3 MG ORAL TABLET 327561 MELATONIN Inactive SEROQUEL 100 MG ORAL TABLET 1 tab daily SEROQUEL 100 MG ORAL TABLET 727466 QUETIAPINE FUMARATE Inactive AMARYL 2 MG ORAL TABLET give 2.5 tabs PO daily AMARYL 2 MG ORAL TABLET 771968 GLIMEPIRIDE Inactive SEROQUEL 25 MG ORAL TABLET Take two tabs by mouth in the morning, take 4 tablets at night SEROQUEL 25 MG ORAL TABLET 677885 QUETIAPINE FUMARATE Inactive QUETIAPINE FUMARATE 25 MG ORAL TABLET 2 tabs BID QUETIAPINE FUMARATE 25 MG ORAL TABLET 453809 QUETIAPINE FUMARATE Inactive QUETIAPINE FUMARATE 100 MG ORAL TABLET 1 tab PO at HS QUETIAPINE FUMARATE 100 MG ORAL TABLET 889022 QUETIAPINE FUMARATE Inactive LATUDA 40 MG ORAL TABLET 1.5 tab by mouth in the afternoon 05/23 LATUDA 40 MG ORAL TABLET LURASIDONE HCL Inactive TOPAMAX 25 MG ORAL TABLET 1 tab BID PRN TOPAMAX 25 MG ORAL TABLET 097583 TOPIRAMATE Inactive EFFEXOR XR 150 MG ORAL [...] nightly [facility] MELATONIN 3 MG ORAL TABLET 324281 MELATONIN Inactive [facility] MILK OF MAGNESIA 400 MG/5ML ORAL SUSPENSION 30ml by mouth bid prn [facility] MILK OF MAGNESIA 400 MG/5ML ORAL SUSPENSION MAGNESIUM HYDROXIDE Inactive CEFDINIR 300 MG ORAL CAPSULE by mouth twice a day CEFDINIR 300 MG ORAL CAPSULE 289322 CEFDINIR Inactive AZITHROMYCIN 500 MG INTRAVENOUS SOLUTION RECONSTITUTED 1 po q day AZITHROMYCIN 500 MG INTRAVENOUS SOLUTION RECONSTITUTED [id number] AZITHROMYCIN Inactive AMOXICILLIN 500 MG ORAL CAPSULE 2 po BID x 10 days AMOXICILLIN 500 MG ORAL CAPSULE 221424 AMOXICILLIN Inactive PENICILLIN V POTASSIUM 500 MG ORAL TABLET 1 pill by mouth three times daily PENICILLIN V POTASSIUM 500 MG ORAL TABLET 639743 PENICILLIN V POTASSIUM Inactive KEFLEX 500 MG ORAL CAPSULE 1 po BID x 7 days KEFLEX 500 MG ORAL CAPSULE 449968 CEPHALEXIN Inactive Immunizations Vaccine Administration Date Value [...] Fluvirin, Fluarix, Agriflu(>=18 yo)) Fluzone (>3 yrs.) [ERF835] Influenza, seasonal, injectable pneumococcal immunization administered Pneumovax 23 [CVX33] pneumococcal polysaccharide vaccine, 23 valent Vital Signs Date Name Value Unit Range Description blood pressure, diastolic, second observation 89 mm[Hg] [...] ... - Chemistry sodium, serum 135 mmol/L 106-573 4722/08/22 carbon dioxide, venous blood 28.4 mmol/L 21.0-32.0 [...] mg/g {creat} 0-29 cholesterol, serum 263 mg/dL 256-851 2942/08/22 triglyceride, serum, fasting 1312 mg/dL 30-200 HDL [...] 80 mg/L 0-19 Office Visit: TCM from alf - Lab PSA (prostate specific antigent), recommendation and action PSA ordered Encounters Code Encounter Date Provider Facility CPT-53352 [id number] Vst-Est Level IV 15:10:01 HIV PREVENTION SPECIALIST Mason Loredo MD [facility] CPT-37659 [id number] Vst-Est Level III 11:00:25 CDT Shavonne Feliciano PA-C [facility] CPT-90029 Level 3 Est. Patient 09:12:14 HIV PREVENTION SPECIALIST Mima Fierroum [facility]-15156 Level 3 Est. Patient 16:52:51 CDT Vanessa Hickey MD [facility]-20275 Level 3 Est. Patient 17:40:16 CDT Mima Erazo [facility]-88610 Level 3 Est. Patient 14:34:52 CDT Vanessa Hickey MD [facility]-11873 Level 3 Est. Patient 16:27:51 CDT Mima Erazo [facility]-52754 Level 3 Est. Patient 14:39:00 HIV PREVENTION SPECIALIST Vanessa Hickey MD [facility]-36757 Level 2 Est. Patient 18:43:34 CDT Mima Erazo [facility] CPT-25183 Level 3 Est. Patient 16:22:09 CDT Cherelle Avila [facility]-64980 Level 4 Est. Patient 17:55:14 CDT Mima Erazo [facility] CPT-89431 Level 2 Est. Patient 17:13:21 CDT Alina Castaneda MD [facility]-38893 Level 3 Est. Patient 14:46:15 CDT Vanessa Hickey MD [facility]-30414 Level 3 Est. Patient 09:34:56 CDT Alina Castaneda MD [facility]88779 Level 3 Est. Patient 21:40:19 CDT Mima Vadimjerrell [facility]-58734 Level 3 Est. Patient 09:26:40 CDT Marvel Charles [facility]-63849 Level 3 Est. Patient 12:36:43 CDT Vanessa Hickey MD [facility]-50507 Level 3 Est. Patient 12:57:49 CDT Vanessa Hickey MD [facility]-05845 Level 3 Est. Patient 00:28:25 CDT Alina Castaneda MD [facility]-42578 Level 2 Est. Patient 12:52:14 CDT Alina Castaneda MD [facility]-51224 Level 3 Est. Patient 11:51:18 HIV PREVENTION SPECIALIST Alina Castaneda MD [facility]-55360 Level 3 Est. Patient 10:09:22 HIV PREVENTION SPECIALIST Alina Castaneda MD [facility]19182 Level 3 Est. Patient 14:36:26 HIV PREVENTION SPECIALIST Marvel Charles [facility]-68873 Level 3 Est. Patient 13:34:47 HIV PREVENTION SPECIALIST Alina Castaneda MD [facility]-49285 Level 3 Est. Patient 19:52:08 HIV PREVENTION SPECIALIST Alina Castaneda MD [facility]-45025 Level 3 Est. Patient 10:01:51 HIV PREVENTION SPECIALIST Marvel Charles [facility]-50606 Level 3 Est. Patient 21:54:06 CDT Vanessa Hickey MD [facility]-89264 Level 3 Est. Patient 08:54:46 CDT Alina Castaneda MD [facility]-20155 Level 3 Est. Patient 09:32:11 CDT Marvel Charles [facility]-71003 Level 3 Est. Patient 12:02:49 CDT Alina Castaneda MD [facility] [place]02675 Level 3 Est. Patient 19:17:33 CDT Alina Castaneda MD [facility]-02473 Level 3 Est. Patient 13:19:10 CDT Marvel Charles [facility]-16139 Level 3 Est. Patient 08:20:05 CDT Alina Castaneda MD [facility]-73508 Level 3 Est. Patient 15:17:18 CDT Alina Castaneda MD [facility] [place]23745 Level 3 Est. Patient 14:25:36 HIV PREVENTION SPECIALIST Marvel [facility]-63641 Level 3 Est. Patient 10:09:15 HIV PREVENTION SPECIALIST Marvel Charles [facility]-21919 Level 3 Est. Patient 21:28:43 CDT Alina Castaneda MD [facility] [place]79534 Level 3 Est. Patient 15:20:11 [facility]T [facility]-60926 Level 4 Est. Patient 19:08:12 CDT Alina Castaneda MD [facility]-52401 Level 3 Est. Patient 15:06:39 CDT Marvel Charles [facility]-30053 Level 4 Est. Patient 17:48:15 CDT Alina Castaneda MD [facility]-47994 Level 3 Est. Patient 14:53:49 CDT Alina Castaneda MD [facility]-75082 Level 3 Est. Patient 09:35:16 CDT Alina Castaneda MD [facility]-03305 Level 3 Est. Patient 12:23:22 CDT Alina Castaneda MD [facility] [place]98237 Level 3 Est. Patient 16:19:15 CDT Alina Castaneda MD [facility]-67288 Level 3 Est. Patient 21:39:56 HIV PREVENTION SPECIALIST Alina Castaneda MD [facility]-36518 Level 4 Est. Patient 14:12:56 HIV PREVENTION SPECIALIST Alina Castaneda MD [facility]-07913 Level 2 Est. Patient 15:34:57 HIV PREVENTION SPECIALIST Alina Castaneda MD [facility]-28487 Level 3 Est. Patient 12:17:04 HIV PREVENTION SPECIALIST Alina Castaneda MD [facility] [place]65785 Level 3 Est. Patient 09:18:18 HIV PREVENTION SPECIALIST [facility]-00940 Level 2 Est. Patient 21:50:24 CDT Alina Castaneda MD [facility] [place]69637 Level 3 Est. Patient 09:17:28 CDT Marvel Charles [facility]-24220 Level 4 Est. Patient 18:54:02 CDT Alina Castaneda MD [facility] [place]90572 Level 3 Est. Patient 10:47:10 CDT Alina Castaneda MD [facility] [place]76897 Level 3 Est. Patient 09:22:20 CDT Marvel Charles [facility]-84070 Level 3 Est. Patient 16:39:43 CDT Marvel Charles [facility]-41862 Level 3 Est. Patient 16:05:16 CDT Alina Castaneda MD [facility] [place]35163 Level 3 Est. Patient 00:29:15 CDT Alina Castaneda MD [facility] [place]54870 Level 3 Est. Patient 10:49:22 HIV PREVENTION SPECIALIST Marvel Charles [facility]-78255 Level 3 Est. Patient 21:30:19 HIV PREVENTION SPECIALIST Alina Castaneda MD PhD [facility] CPT-02489 Level 4 Est. Patient 17:04:11 HIV PREVENTION SPECIALIST Marvel Charles [facility] [place] CPT-50534 Level 3 Est. Patient 15:34:11 HIV PREVENTION SPECIALIST [place] [facility] CPT-15613 Level 2 Est. Patient 12:51:58 HIV PREVENTION SPECIALIST Alina Castaneda MD PhD [facility] CPT-42926 Level 3 Est. Patient 13:20:01 HIV PREVENTION SPECIALIST Alina Castaneda MD PhD [facility] CPT-01676 Level 3 Est. Patient 09:23:35 CDT Alina Castaneda MD PhD [facility] Procedures Code Procedure Name Date Entry Date Standard Description CPT-G0439 [facility] Annual Wellness Exam 15:49:52 HIV PREVENTION SPECIALIST CPT-96902 Level 3 Group Home 13:20:19 CDT CPT-TCMM Transitional Care Mgmt-Moderate 12:32:19 CDT CPT-08412 Level 2 Group Home 09:01:11 CDT CPT-62846 HGBA1C - LAB USE ONLY 09:30:27 HIV PREVENTION SPECIALIST CPT-49163 BMP - LAB USE ONLY 09:30:27 HIV PREVENTION SPECIALIST CPT-27753 Venipuncture Draw Fee 09:30:26 HIV PREVENTION SPECIALIST CPT-TCMM Transitional Care Mgmt-Moderate 10:25:31 CDT CPT-47272 Bladder Scan 14:34:53 CDT CPT-28599 Bladder Scan 14:39:01 HIV PREVENTION SPECIALIST CPT-TCMM Transitional Care Mgmt-Moderate 10:30:19 HIV PREVENTION SPECIALIST CPT-30797 Bladder Scan 12:36:44 CDT CPT-74859 Bladder Scan 21:54:06 CDT CPT-G0008 Administration of Influenza Virus Vaccine 13:05:26 CDT CPT-40984 Fluzone Quadrivalent Intramuscular Suspension 0.5 ML 13: 05:26 CDT CPT-49963 Administration single or combination vaccine inc oral 11 :49:51 CDT CPT-09325 Pneumovax 11:49:51 CDT CPT-49938 Ribs unilateral 2V 12:37:22 HIV PREVENTION SPECIALIST CPT-86796 Chest 2V Frontal and Lat 17:15:26 CDT CPT-05501 Abx/Therapy Injection 18:54:02 CDT CPT-J0696 Rocephin 1000 mg (Ceftriaxone) 16:00:32 CDT CPT-61884 Chest 2V Frontal and Lat 15:26:45 CDT CPT-22655 Chest 2V Frontal and Lat 10:23:27 CDT CPT-76805 Venipuncture Draw Fee 10:11:00 CDT CPT-18786 Administration single or combination vaccine inc oral 11 :56:38 CDT CPT-97203 Influenza split virus > age 3 11:56:38 CDT CPT-78839 Venipuncture Draw Fee 08:49:54 HIV PREVENTION SPECIALIST CPT-51716 EKG Trac and Interp 17:54:19 HIV PREVENTION SPECIALIST
--- OUTSIDE RECORDS SUMMARY | 2018-07-02 15:02 | XMS REPORT | Clinical Summary ---
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 Shavonne Felicinao PA-C Chronic gouty arthropathy with tophus (tophi) [...] positional vertigo 386.11 Active Mima Erazo RN RELIEF CHARGE Benign paroxysmal positional vertigo Vertigo, benign paroxysmal position 386.11 Inactive Mima Erazo RN RELIEF CHARGE Benign paroxysmal positional vertigo High-risk sexual behavior [...] by mouth three times a day RISPERIDONE 03827181275 Active Mya Ledezma MA Active [facility] MILK OF MAGNESIA 400 MG/5ML ORAL SUSPENSION 30ml by mouth bid prn MAGNESIUM HYDROXIDE 93379176803 No Longer Active Mya Ledezma MA Active [facility] MELATONIN 3 MG ORAL TABLET 1 tab nightly MELATONIN 14866967177 No Longer Active Mya Ledezma MA Active AMBIEN 10 MG ORAL TABLET 1 at night as needed for sleep ZOLPIDEM TARTRATE 53248028370 Active Mason Loredo MD Active VERAPAMIL HCL ER 180 MG ORAL TABLET EXTENDED RELEASE 1 pill by mouth twice daily, for migraine prevention VERAPAMIL HCL 15752331916 No Longer Active Mason Loredo MD Active EFFEXOR XR 150 MG ORAL CAPSULE EXTENDED RELEASE 24 HOUR 1 tab daily VENLAFAXINE HCL 93726837326 No Longer Active Mason Loredo MD Active VENLAFAXINE HCL ER 150 MG ORAL CAPSULE EXTENDED RELEASE 24 HOUR 1 tablet 2 times a day VENLAFAXINE HCL 35752374735 Active Mason Loredo MD Active TOPAMAX 25 MG ORAL TABLET 1 tab BID PRN TOPIRAMATE 80120528921 No Longer Active Mason Loredo MD Active LATUDA 40 MG ORAL TABLET 1.5 tab by mouth in the afternoon 05/23 LURASIDONE HCL 34979849674 No Longer Active Mason Loredo MD Active QUETIAPINE FUMARATE 100 MG ORAL TABLET 1 tab PO at HS QUETIAPINE FUMARATE 62154685908 No Longer Active Mason Loredo MD Active QUETIAPINE FUMARATE 25 MG ORAL TABLET 2 tabs BID QUETIAPINE FUMARATE 01182904783 No Longer Active Mason Loredo MD Active ATORVASTATIN CALCIUM 10 MG ORAL TABLET Take 1 tablet by mouth daily. Recheck labs in 3 months ATORVASTATIN CALCIUM 45006889138 Active Mya Ledezma MA Active VERAPAMIL HCL ER 180 MG ORAL TABLET EXTENDED RELEASE 1 tab BID VERAPAMIL HCL 75150257443 Active Shavonne Feliciano PA-C Active SEROQUEL 25 MG ORAL TABLET Take two tabs by mouth in the morning, take 4 tablets at night QUETIAPINE FUMARATE 93371890035 No Longer Active Shavonne Feliciano PA-C Active AMARYL 2 MG ORAL TABLET give 2.5 tabs PO daily GLIMEPIRIDE 78679506826 No Longer Active Shavonne Feliciano PA-C Active AMARYL 2 MG ORAL TABLET give 2 tabs PO in the morning GLIMEPIRIDE 56017774248 Active Shavonne Feliciano PA-C Active FENOFIBRATE 145 MG ORAL TABLET 1 tab PO in the morning FENOFIBRATE 45815613890 Active Shavonne Feliciano PA-C Active SEROQUEL 100 MG ORAL TABLET 1 tab daily QUETIAPINE FUMARATE 56967486199 No Longer Active Shavonne Feliciano PA-C Active [facility] MELATONIN 3 MG ORAL TABLET give 1 tab by mouth at HS MELATONIN 40294277505 No Longer Active Gabrielle Marquez MA Active NOVOLOG FLEXPEN 100 UNIT/ML SUBCUTANEOUS SOLUTION PEN-INJECTOR sliding scale INSULIN ASPART 95338995604 Active Gabrielle Marquez MA Active METFORMIN HCL 1000 MG ORAL TABLET 1 tab by mouth BID METFORMIN HCL 86136064806 Active Gabrielle Marquez MA Active TAMSULOSIN HCL 0.4 MG ORAL CAPSULE give 2 capsules PO each evening TAMSULOSIN HCL 54761860065 No Longer Active Gabrielle Marquez MA Active VITAMIN D 2000 UNIT ORAL CAPSULE Take one by mouth daily CHOLECALCIFEROL 04230157853 No Longer Active Gabrielle Marquez MA Active LEVEMIR 100 UNIT/ML SUBCUTANEOUS SOLUTION 10 u at bedtime INSULIN DETEMIR 03097993678 Active Gabrielle Marquez MA Active TAMSULOSIN HCL 0.4 MG ORAL CAPSULE 2 every night for urine flow TAMSULOSIN HCL 63382944275 Active Gabrielle Marquez MA Active DIVALPROEX SODIUM 125 MG ORAL TABLET DELAYED RELEASE 1 tab each morning 02/17 DIVALPROEX SODIUM 27033050399 Active Gabrielle Marquez MA Active D 1000 TABLET 2 tab by mouth BID CHOLECALCIFEROL TABS 93971822920 Active Gabrielle Marquez MA Active ALIGN 4 MG ORAL CAPSULE 1 tab at hs PROBIOTIC PRODUCT 75668556846 Active Gabrielle Marquez MA Active CLONAZEPAM 1 MG ORAL TABLET 1 pill by mouth two times daily CLONAZEPAM 76052282570 Active Gabrielle Marquez MA Active OCEAN NASAL SPRAY SOLUTION 2 sprays in both nostrils every 8 hours as needed for dry mucous membranes SALINE SOLN 88200111928 Active Mason Loredo MD Active BETHANECHOL CHLORIDE 25 MG ORAL TABLET Take 1 tablet mouth four times a day BETHANECHOL CHLORIDE 16653999590 Active Mason Loredo MD Active [facility] LUBRICANT EYE DROPS 0.4-0.3 % OPHTHALMIC SOLUTION POLYETHYL GLYCOL-PROPYL GLYCOL 18835425926 No Longer Active Mason Loredo MD Active TYLENOL 8 HOUR 650 MG ORAL TABLET EXTENDED RELEASE 1 tab QID prn ACETAMINOPHEN 84532012415 No Longer Active Mason Loredo MD Active TIMOPTIC OCUDOSE 0.5 % OPHTHALMIC SOLUTION instill one drop into both eyes q12H TIMOLOL MALEATE 25586197787 Active Mason Loredo MD Active TRAZODONE HCL 100 MG ORAL TABLET 1 every night to prevent headaches TRAZODONE HCL 74683884839 No Longer Active Mason Loredo MD Active TRAVATAN Z 0.004 % OPHTHALMIC SOLUTION 1 drop each eye daily 2017 TRAVOPROST 92178104165 No Longer Active Mason Loredo MD Active LATUDA 60 MG ORAL TABLET 1 tab daily LURASIDONE HCL 18850149559 No Longer Active Mason Loredo MD Active MORPHINE SULFATE ER 30 MG ORAL TABLET EXTENDED RELEASE Take one capsule BID MORPHINE SULFATE 78801227558 No Longer Active Mason Loredo MD Active TRUE METRIX BLOOD GLUCOSE TEST IN VITRO STRIP Check blood sugars 3x/day. 2015 GLUCOSE BLOOD 38497542975 No Longer Active Mason Loredo MD Active TRUEPLUS LANCETS 30G 3x a day LANCETS 07949266326 No Longer Active Mason Loredo MD Active MYLANTA GAS RELIEF MAXIMUM STR 125 MG ORAL CAPSULE 30cc every 4 hours prn SIMETHICONE 44976825944 No Longer Active Mason Loredo MD Active IMODIUM A-D 2 MG ORAL TABLET 1 tab QID as needed LOPERAMIDE HCL 82296345548 No Longer Active Mason Loredo MD Active FLONASE ALLERGY RELIEF 50 MCG/ACT NASAL SUSPENSION One spray each nostril BID x 1 week then daily FLUTICASONE PROPIONATE 77878171925 No Longer Active Mason Loredo MD Active FLUVOXAMINE MALEATE 100 MG ORAL TABLET take one tab every AM et HS, and take 1 /2 tab at noon FLUVOXAMINE MALEATE 28764140442 No Longer Active Mason Loredo MD Active BD PEN NEEDLE MINI U/F 31G X 5 MM 4 a day INSULIN PEN NEEDLE 92117577371 No Longer Active Mason Loredo MD Active AMITIZA 24 MCG ORAL CAPSULE Take one capsule BID for constipation LUBIPROSTONE 11903292353 No Longer Active Mason Loredo MD Active TRUEPLUS LANCETS 30G 3 a day LANCETS 73923057111 No Longer Active Mason Loredo MD Active CORICIDIN HBP CONGESTION/COUGH 10-200 MG ORAL CAPSULE Take as directed on box as needed for cold/flu symptoms DEXTROMETHORPHAN- GUAIFENESIN 01797050642 No Longer Active Mason Loredo MD Active OMEGA-3 300 MG ORAL CAPSULE 4 caps by mouth daily OMEGA-3 FATTY ACIDS 71701132101 No Longer Active Mason Loredo MD Active HUMALOG KWIKPEN 100 UNIT/ML SUBCUTANEOUS SOLUTION PEN-INJECTOR sliding scale if needed INSULIN LISPRO (HUMAN) 91125551932 No Longer Active Mason Loredo MD Active TRUETEST TEST IN VITRO STRIP check blood sugars 3x/day GLUCOSE BLOOD 43728099692 No Longer Active Mason Loredo MD Active ALFUZOSIN HCL ER 10 MG ORAL TABLET EXTENDED RELEASE 24 HOUR 1 tablet daily ALFUZOSIN HCL 55712547058 No Longer Active Mason Loredo MD Active BD INSULIN SYRINGE 28G X 1/2" 1 ML 1 four times per day INSULIN SYRINGE-NEEDLE U-100 71319546003 No Longer Active Mason Loredo MD Active LEVEMIR FLEXTOUCH 100 UNIT/ML SUBCUTANEOUS SOLUTION PEN-INJECTOR 60 units SQ each evening, for diabetes INSULIN DETEMIR 23513251783 No Longer Active Mason Loredo MD Active LACTULOSE 20 GM/30ML ORAL SOLUTION give 30 Ml PO BID PRN LACTULOSE 07930662234 Active Mason Loredo MD Active COLACE 100 MG ORAL CAPSULE 1 tab BID PRN DOCUSATE SODIUM 27898071729 Active Mason Loredo MD Active LATANOPROST 0.005 % OPHTHALMIC SOLUTION instill 1 drop in both eyes at bed time LATANOPROST 55905901902 Active Mason Loredo MD Active MIRALAX ORAL POWDER 17g by mouth q12h, for constipation POLYETHYLENE GLYCOL 3350 52657927571 Active Mason Loredo MD Active IBUPROFEN 400 MG ORAL TABLET 1 tab Q6H PRN IBUPROFEN 05449183414 Active Mason Loredo MD Active FLUVOXAMINE MALEATE 50 MG ORAL TABLET 1 tab by mouth daily 04/01 FLUVOXAMINE MALEATE 55851985451 No Longer Active Mima Erazo APRN Active TRUE METRIX METER w/Device KIT Check blood sugars 3x/day BLOOD GLUCOSE MONITORING SUPPL 77155469486 Active Marvel MARROQUIN Active LATUDA 60 MG ORAL TABLET Take one by mouth daily LURASIDONE HCL 49930995747 No Longer Active Mima Erazo APRN Active TRAVATAN Z 0.004 % OPHTHALMIC SOLUTION 1 gtt each eye daily TRAVOPROST 06049854188 No Longer Active Mason Loredo MD Active LISINOPRIL 20 MG ORAL TABLET 1 BID LISINOPRIL 02712056273 No Longer Active Mason Loredo MD Active ZOLPIDEM TARTRATE 10 MG ORAL TABLET take at bedtime ZOLPIDEM TARTRATE 90813509519 No Longer Active Mason Loredo MD Active HYDROCODONE-ACETAMINOPHEN 5-325 MG ORAL TABLET 2 tabs by mouth three times daily for pain HYDROCODONE-ACETAMINOPHEN 65198713027 No Longer Active Mason Loredo MD Active ZOFRAN 4 MG ORAL TABLET 1 po q4hr PRN Nausea ONDANSETRON HCL 93167421101 No Longer Active Mason Loredo MD Active LOMOTIL 2.5-0.025 MG ORAL TABLET take 1-2 tabs PO after each stool, no more than 8 in 24 hours DIPHENOXYLATE-ATROPINE 30082961154 No Longer Active Mason Lordeo MD Active COLACE 100 MG ORAL CAPSULE 1 pill by mouth twice daily, for constipation 2014 DOCUSATE SODIUM 94700467326 No Longer Active Mima Erazo APRN Active TOLTERODINE TARTRATE 2 MG ORAL TABLET 1 pill twice daily, for bladder TOLTERODINE TARTRATE 32912959524 No Longer Active Vanessa Hickey MD Active AMITIZA 24 MCG ORAL CAPSULE Take one capsule BID for constipation. LUBIPROSTONE 79190187274 No Longer Active Vanessa Hickey MD Active METOPROLOL SUCCINATE ER 100 MG ORAL TABLET EXTENDED RELEASE 24 HOUR 1 by mouth daily for blood pressure METOPROLOL SUCCINATE 92943128418 No Longer Active Grace Nascimento RMA Active METFORMIN HCL ER 500 MG ORAL TABLET EXTENDED RELEASE 24 HOUR Take three tablets by mouth everyday METFORMIN HCL 76117814227 No Longer Active Grace Nascimento RMA Active LOVAZA 1 GM ORAL CAPSULE 4 daily (for triglycerides) OUUOT-2-FUIV ETHYL ESTERS 17549336701 No Longer Active Grace Azam RMA Active TRAZODONE HCL 100 MG ORAL TABLET 1 tab by mouth for sleep TRAZODONE HCL 71480017588 No Longer Active Grace Nelsonb RMA Active NOVOFINE 32G X 6 MM use one four times per day INSULIN PEN NEEDLE 50557059426 No Longer Active Grace Nelsonb RMA Active BACTROBAN 2 % EXTERNAL CREAM Apply to affected area BID for up to 10 days MUPIROCIN CALCIUM 17666186595 No Longer Active Grace Nascimento RMA Active KEFLEX 500 MG ORAL CAPSULE 1 po BID x 7 days CEPHALEXIN 18000256043 No Longer Active Cherelle Avila APRN Active FLUVOXAMINE MALEATE 100 MG ORAL TABLET Take one (1) tablet by mouth am, 1/2 at noon FLUVOXAMINE MALEATE 07878032836 No Longer Active Mima Erazo APRN Active FLUVOXAMINE MALEATE 100 MG ORAL TABLET Take 1/2 tab at noon 03/04 FLUVOXAMINE MALEATE 25338822294 No Longer Active Cherelle Avila APRN Active ACCU-CHEK ROSA DEVICE Use device to check blood sugars BLOOD GLUCOSE MONITORING SUPPL 88401013266 No Longer Active Marvel MARROQUIN Active ACCU-CHEK ROSA IN VITRO STRIP use strips with device to check blood sugars 3 times daily GLUCOSE BLOOD 90042740255 No Longer Active Marvel MARROQUIN Active CYCLOBENZAPRINE HCL 10 MG ORAL TABLET 1 tablet by mouth three times daily, scheduled CYCLOBENZAPRINE HCL 54146356474 No Longer Active Alina Castaneda MD PhD Active HUMALOG 100 UNIT/ML SUBCUTANEOUS SOLUTION Take 20 units with breakfast, 10u with lunch and suppetr. INSULIN LISPRO (HUMAN) 50477088389 No Longer Active Alina Castaneda MD PhD Active TRUETEST TEST IN VITRO STRIP check sugars 4x/day GLUCOSE BLOOD 01602374268 No Longer Active Alina Castaneda MD PhD Active MORPHINE SULFATE 30 MG ORAL TABLET 1 pill by mouth twice daily, for pain 2013 MORPHINE SULFATE 92485869788 No Longer Active Mason Loredo MD Active ACYCLOVIR 400 MG ORAL TABLET 1 pill three times daily x 5 days, for cold sore outbreak ACYCLOVIR 26034894427 No Longer Active Alina Castaneda MD PhD Active PENICILLIN V POTASSIUM 500 MG ORAL TABLET 1 pill by mouth three times daily PENICILLIN V POTASSIUM 22768974215 No Longer Active Alina Castaneda MD PhD Active UROXATRAL 10 MG ORAL TABLET EXTENDED RELEASE 24 HOUR Take 1 tablet by mouth daily ALFUZOSIN HCL 77734593120 No Longer Active Alina Castaneda MD PhD Active THIOTHIXENE 5 MG ORAL CAPSULE by mouth twice a day THIOTHIXENE 50331043838 No Longer Active Alina Castaneda MD PhD Active ZYPREXA 7.5 MG ORAL TABLET 1 at HS OLANZAPINE 37976031732 No Longer Active Alina Castaneda MD PhD Active DETROL LA 4 MG ORAL CAPSULE EXTENDED RELEASE 24 HOUR Take 1 tablet by mouth daily TOLTERODINE TARTRATE 88165309610 No Longer Active Alina Castaneda MD PhD Active TERESE CONTOUR TEST IN VITRO STRIP monitor blood sugars 3x/day GLUCOSE BLOOD 67398841416 No Longer Active Alina Castaneda MD PhD Active EQL TRUETEST TEST IN VITRO STRIP Test blood sugar TID GLUCOSE BLOOD 11735334442 No Longer Active Alina Castaneda MD PhD Active FLUTICASONE PROPIONATE 50 MCG/ACT NASAL SUSPENSION 2 sprays each nostril qDay x 30 days FLUTICASONE PROPIONATE 49060770766 No Longer Active Alina Castaneda MD PhD Active IBUPROFEN 200 MG ORAL TABLET 1 Q 6 hr. PRN IBUPROFEN 40645683345 No Longer Active Alina Castaneda MD PhD Active NIACIN ER 500 MG ORAL TABLET EXTENDED RELEASE 4 qHS (for triglycerides) 01/13 NIACIN 15349643191 No Longer Active Alina Castaneda MD PhD Active SAPHRIS 5 MG SUBLINGUAL TABLET SUBLINGUAL by mouth twice a day ASENAPINE MALEATE 59722841990 No Longer Active Maljohn Ziglari RF MICROWAVE ENGINEER Active ACETAMINOPHEN 500 MG ORAL TABLET 2 Q 6 hr. PRN ACETAMINOPHEN 92381552224 No Longer Active Mallashondaeh Ziglari RF MICROWAVE ENGINEER Active ORPHENADRINE CITRATE ER 100 MG ORAL TABLET EXTENDED RELEASE 12 HOUR 1 every 12 hr. as needed ORPHENADRINE CITRATE 44432902174 No Longer Active Alina Castaneda MD PhD Active NIACIN ER 500 MG ORAL TABLET EXTENDED RELEASE 2 qHS NIACIN 59517562915 No Longer Active Alina Castaneda MD PhD Active AMOXICILLIN 500 MG ORAL CAPSULE 2 po BID x 10 days AMOXICILLIN 53648650614 No Longer Active Alina Castaneda MD PhD Active HYDROCODONE-ACETAMINOPHEN 7.5-325 MG ORAL TABLET 1 four times a day as needed for pain HYDROCODONE-ACETAMINOPHEN 46361606331 No Longer Active Alina Castaneda MD PhD Active DOXEPIN HCL 10 MG ORAL CAPSULE Take 1 tablet by mouth daily DOXEPIN HCL 33059239787 No Longer Active Salina ROJAS Active NAVANE 10 MG CAPS 1/2 tablet twice a day THIOTHIXENE No Longer Active Salina ROJAS Active CYCLOBENZAPRINE HCL 10 MG ORAL TABLET 1/2 tablet by mouth every 8 hours as needed for muscle spasms CYCLOBENZAPRINE HCL 08283752941 No Longer Active Alina Castaneda MD PhD Active BACTROBAN 2 % EXTERNAL CREAM apply to ear and nose twice daily MUPIROCIN CALCIUM 75720195414 No Longer Active Alina Castaneda MD PhD Active HYDROCODONE-ACETAMINOPHEN 5-325 MG ORAL TABLET take one tablet by mouth every four hours as needed for pain HYDROCODONE-ACETAMINOPHEN 01318581062 No Longer Active Alina Castaneda MD PhD Active ZYPREXA 5 MG ORAL TABLET take one tablet by mouth every evening OLANZAPINE 51399460143 No Longer Active Alina Castaneda MD PhD Active ALBUTEROL SULFATE (2.5 MG/3ML) 0.083% INHALATION NEBULIZATION SOLUTION one vial per nebulizer TID and PRN cough/soa ALBUTEROL SULFATE 02777218724 No Longer Active Alina Castaneda MD PhD Active GUAIFENESIN ER 600 MG ORAL TABLET EXTENDED RELEASE 12 HOUR 1 tablet by mouth twice daily if needed for cough GUAIFENESIN 88120804955 No Longer Active Marvel MARROQUIN Active AZITHROMYCIN 500 MG INTRAVENOUS SOLUTION RECONSTITUTED 1 po q day AZITHROMYCIN 53422344143 No Longer Active Alina Castaneda MD PhD Active PROMETHAZINE-CODEINE 6.25-10 MG/5ML ORAL SYRUP 1 tsp po q 6 hours prn cough PROMETHAZINE-CODEINE 34502851469 No Longer Active Alina Castaneda MD PhD Active CEFDINIR 300 MG ORAL CAPSULE by mouth twice a day CEFDINIR 56054507456 No Longer Active Alina Castaneda MD PhD Active METFORMIN HCL ER 500 MG ORAL TABLET EXTENDED RELEASE 24 HOUR Take 3 tablets by mouth everyday METFORMIN HCL 44425566319 No Longer Active Alina Castaneda MD PhD Active LEVEMIR 100 UNIT/ML SUBCUTANEOUS SOLUTION 90 units SQ qHS INSULIN DETEMIR 50870197906 No Longer Active Marvel MARROQUIN Active TOPROL XL 100 MG ORAL TABLET EXTENDED RELEASE 24 HOUR 1 @ HS METOPROLOL SUCCINATE 57874663253 No Longer Active Marvel MARROQUIN Active ALLOPURINOL 300 MG ORAL TABLET Take one by mouth daily ALLOPURINOL 68063662464 Active Mima Erazo RN RELIEF CHARGE Active ZYPREXA 10 MG ORAL TABLET Take one by mouth daily OLANZAPINE 99709251642 No Longer Active Alina Castaneda MD PhD Active NOVOLOG 100 UNIT/ML SUBCUTANEOUS SOLUTION 40 units with every meal INSULIN ASPART 29198933066 No Longer Active Alina Castaneda MD PhD Active VERAPAMIL HCL ER 120 MG ORAL TABLET EXTENDED RELEASE 1 qPM 09/08 VERAPAMIL HCL 45640260277 No Longer Active Salina ROJAS Active ZYPREXA 15 MG ORAL TABLET Take 1 tablet by mouth daily OLANZAPINE 62080808201 No Longer Active Marvel MARROQUIN Active ALBUTEROL SULFATE (2.5 MG/3ML) 0.083% INHALATION NEBULIZATION SOLUTION 1 neb tid and prn cough ALBUTEROL SULFATE 89324642353 No Longer Active Alina Castaneda MD PhD Active LANTUS 100 UNIT/ML SUBCUTANEOUS SOLUTION 60 units sq q hs INSULIN GLARGINE 31436140887 No Longer Active CRYSTAL Suarez Active ALBUTEROL SULFATE (2.5 MG/3ML) 0.083% INHALATION NEBULIZATION SOLUTION 1 neb tid and prn cough ALBUTEROL SULFATE (2.5 MG/3ML) 0.083% INHALATION NEBULIZATION SOLUTION 693232 ALBUTEROL SULFATE Inactive ZYPREXA 15 MG ORAL TABLET Take 1 tablet by mouth daily ZYPREXA 15 MG ORAL TABLET 143851 OLANZAPINE Inactive VERAPAMIL HCL ER 120 MG ORAL TABLET EXTENDED RELEASE 1 qPM 09/08 VERAPAMIL HCL ER 120 MG ORAL TABLET EXTENDED RELEASE VERAPAMIL HCL Inactive ZYPREXA 10 MG ORAL TABLET Take one by mouth daily ZYPREXA 10 MG ORAL TABLET 009531 OLANZAPINE Inactive TOPROL XL 100 MG ORAL TABLET EXTENDED RELEASE 24 HOUR 1 @ HS TOPROL XL 100 MG ORAL TABLET EXTENDED RELEASE 24 HOUR METOPROLOL SUCCINATE Inactive LEVEMIR 100 UNIT/ML SUBCUTANEOUS SOLUTION 90 units SQ qHS LEVEMIR 100 UNIT/ML SUBCUTANEOUS SOLUTION INSULIN DETEMIR Inactive PROMETHAZINE-CODEINE 6.25-10 MG/5ML ORAL SYRUP 1 tsp po q 6 hours prn cough PROMETHAZINE-CODEINE 6.25-10 MG/5ML ORAL SYRUP 620810 PROMETHAZINE-CODEINE Inactive GUAIFENESIN ER 600 MG ORAL TABLET EXTENDED RELEASE 12 HOUR 1 tablet by mouth twice daily if needed for cough GUAIFENESIN ER 600 MG ORAL TABLET EXTENDED RELEASE 12 HOUR GUAIFENESIN Inactive ALBUTEROL SULFATE (2.5 MG/3ML) 0.083% INHALATION NEBULIZATION SOLUTION one vial per nebulizer TID and PRN cough/soa ALBUTEROL SULFATE (2.5 MG/3ML) 0.083% INHALATION NEBULIZATION SOLUTION 917408 ALBUTEROL SULFATE Inactive ZYPREXA 5 MG ORAL TABLET take one tablet by mouth every evening ZYPREXA 5 MG ORAL TABLET 197391 OLANZAPINE Inactive HYDROCODONE-ACETAMINOPHEN 5-325 MG ORAL TABLET take one tablet by mouth every four hours as needed for pain HYDROCODONE-ACETAMINOPHEN 5-325 MG ORAL TABLET 701887 HYDROCODONE-ACETAMINOPHEN Inactive BACTROBAN 2 % EXTERNAL CREAM apply to ear and nose twice daily BACTROBAN 2 % EXTERNAL CREAM 727822 MUPIROCIN CALCIUM Inactive CYCLOBENZAPRINE HCL 10 MG ORAL TABLET 1/2 tablet by mouth every 8 hours as needed for muscle spasms CYCLOBENZAPRINE HCL 10 MG ORAL TABLET 742258 CYCLOBENZAPRINE HCL Inactive NAVANE 10 MG CAPS 1/2 tablet twice a day NAVANE 10 MG CAPS THIOTHIXENE Inactive DOXEPIN HCL 10 MG ORAL CAPSULE Take 1 tablet by mouth daily DOXEPIN HCL 10 MG ORAL CAPSULE 6219333 DOXEPIN HCL Inactive HYDROCODONE-ACETAMINOPHEN 7.5-325 MG ORAL TABLET 1 four times a day as needed for pain HYDROCODONE-ACETAMINOPHEN 7.5-325 MG ORAL TABLET 291364 HYDROCODONE-ACETAMINOPHEN Inactive NIACIN ER 500 MG ORAL [...] hr. PRN ACETAMINOPHEN 500 MG ORAL TABLET 545374 ACETAMINOPHEN Inactive SAPHRIS 5 MG SUBLINGUAL TABLET SUBLINGUAL by mouth twice a day SAPHRIS 5 MG SUBLINGUAL TABLET SUBLINGUAL ASENAPINE MALEATE Inactive NIACIN ER 500 MG ORAL TABLET EXTENDED RELEASE 4 qHS (for triglycerides) 01/13 NIACIN ER 500 MG ORAL TABLET EXTENDED RELEASE NIACIN Inactive IBUPROFEN 200 MG ORAL TABLET 1 Q 6 hr. PRN IBUPROFEN 200 MG ORAL TABLET 777739 IBUPROFEN Inactive FLUTICASONE PROPIONATE 50 MCG/ACT NASAL SUSPENSION 2 sprays each nostril qDay x 30 days FLUTICASONE PROPIONATE 50 MCG/ACT NASAL SUSPENSION 0519060 FLUTICASONE PROPIONATE Inactive EQL TRUETEST TEST IN [...] at HS ZYPREXA 7.5 MG ORAL TABLET 369135 OLANZAPINE Inactive THIOTHIXENE 5 MG ORAL CAPSULE by mouth twice a day THIOTHIXENE 5 MG ORAL CAPSULE 787150 THIOTHIXENE Inactive UROXATRAL 10 MG ORAL TABLET EXTENDED RELEASE 24 HOUR Take 1 tablet by mouth daily UROXATRAL 10 MG ORAL TABLET EXTENDED RELEASE 24 HOUR ALFUZOSIN HCL Inactive ACYCLOVIR 400 MG ORAL TABLET 1 pill three times daily x 5 days, for cold sore outbreak ACYCLOVIR 400 MG ORAL TABLET 114743 ACYCLOVIR Inactive TRUETEST TEST IN VITRO STRIP check sugars 4x/day TRUETEST TEST IN VITRO STRIP GLUCOSE BLOOD Inactive HUMALOG 100 UNIT/ML SUBCUTANEOUS SOLUTION Take 20 units with breakfast, 10u with lunch and suppetr. HUMALOG 100 UNIT/ML SUBCUTANEOUS SOLUTION INSULIN LISPRO (HUMAN) Inactive CYCLOBENZAPRINE HCL 10 MG ORAL TABLET 1 tablet by mouth three times daily, scheduled CYCLOBENZAPRINE HCL 10 MG ORAL TABLET 402389 CYCLOBENZAPRINE HCL Inactive ACCU-CHEK ROSA IN VITRO STRIP use strips with device to check blood sugars 3 times daily ACCU-CHEK ROSA IN VITRO STRIP GLUCOSE BLOOD Inactive ACCU-CHEK ROSA DEVICE Use device to check blood sugars ACCU-CHEK ROSA DEVICE BLOOD GLUCOSE MONITORING SUPPL Inactive FLUVOXAMINE MALEATE 100 MG ORAL TABLET Take 1/2 tab at noon 03/04 FLUVOXAMINE MALEATE 100 MG ORAL TABLET 285316 FLUVOXAMINE MALEATE Inactive FLUVOXAMINE MALEATE 100 MG ORAL TABLET Take one (1) tablet by mouth am, 1/2 at noon FLUVOXAMINE MALEATE 100 MG ORAL TABLET 683264 FLUVOXAMINE MALEATE Inactive BACTROBAN 2 % EXTERNAL CREAM Apply to affected area BID for up to 10 days BACTROBAN 2 % EXTERNAL CREAM 480927 MUPIROCIN CALCIUM Inactive NOVOFINE 32G X 6 MM use one four times per day NOVOFINE 32G X 6 MM INSULIN PEN NEEDLE Inactive TRAZODONE HCL 100 MG ORAL TABLET 1 tab by mouth for sleep TRAZODONE HCL 100 MG ORAL TABLET 700292 TRAZODONE HCL Inactive LOVAZA 1 GM ORAL CAPSULE 4 daily (for triglycerides) LOVAZA 1 GM ORAL CAPSULE 982323 [id number] ETHYL ESTERS Inactive METFORMIN HCL ER 500 [...] bladder TOLTERODINE TARTRATE 2 MG ORAL TABLET 781402 TOLTERODINE TARTRATE Inactive COLACE 100 MG ORAL CAPSULE 1 pill by mouth twice daily, for constipation 2014 COLACE 100 MG ORAL CAPSULE 1536615 DOCUSATE SODIUM Inactive LOMOTIL 2.5-0.025 MG ORAL TABLET take 1-2 tabs PO after each stool, no more than 8 in 24 hours LOMOTIL 2.5-0.025 MG ORAL TABLET 7454202 DIPHENOXYLATE-ATROPINE Inactive ZOFRAN 4 MG ORAL TABLET 1 po q4hr PRN Nausea ZOFRAN 4 MG ORAL TABLET 184376 ONDANSETRON HCL Inactive HYDROCODONE-ACETAMINOPHEN 5-325 MG ORAL TABLET 2 tabs by mouth three times daily for pain HYDROCODONE-ACETAMINOPHEN 5-325 MG ORAL TABLET 720605 HYDROCODONE-ACETAMINOPHEN Inactive ZOLPIDEM TARTRATE 10 MG ORAL TABLET take at bedtime ZOLPIDEM TARTRATE 10 MG ORAL TABLET 277008 ZOLPIDEM TARTRATE Inactive LISINOPRIL 20 MG ORAL TABLET 1 BID LISINOPRIL 20 MG ORAL TABLET 969667 LISINOPRIL Inactive TRAVATAN Z 0.004 % OPHTHALMIC SOLUTION 1 gtt each eye daily TRAVATAN Z 0.004 % OPHTHALMIC SOLUTION TRAVOPROST Inactive LATUDA 60 MG ORAL TABLET Take one by mouth daily LATUDA 60 MG ORAL TABLET LURASIDONE HCL Inactive FLUVOXAMINE MALEATE 50 MG ORAL TABLET 1 tab by mouth daily 04/01 FLUVOXAMINE MALEATE 50 MG ORAL TABLET 693126 FLUVOXAMINE MALEATE Inactive LEVEMIR FLEXTOUCH 100 UNIT/ML [...] 30G 3 a day TRUEPLUS LANCETS 30G [id number] LANCETS Inactive AMITIZA 24 MCG ORAL CAPSULE [...] noon FLUVOXAMINE MALEATE 100 MG ORAL TABLET 377816 FLUVOXAMINE MALEATE Inactive FLONASE ALLERGY RELIEF 50 MCG/ACT NASAL SUSPENSION One spray each nostril BID x 1 week then daily FLONASE ALLERGY RELIEF 50 MCG/ACT NASAL SUSPENSION [id number] FLUTICASONE PROPIONATE Inactive IMODIUM A-D 2 MG ORAL TABLET 1 tab QID as needed IMODIUM A-D 2 MG ORAL TABLET 109168 LOPERAMIDE HCL Inactive MYLANTA GAS RELIEF MAXIMUM STR 125 MG ORAL CAPSULE 30cc every 4 hours prn MYLANTA GAS RELIEF MAXIMUM STR 125 MG ORAL CAPSULE SIMETHICONE Inactive TRUEPLUS LANCETS 30G 3x a day TRUEPLUS LANCETS 30G [id number] LANCETS Inactive TRUE METRIX BLOOD GLUCOSE TEST [...] headaches TRAZODONE HCL 100 MG ORAL TABLET 872227 TRAZODONE HCL Inactive TYLENOL 8 HOUR 650 [...] evening TAMSULOSIN HCL 0.4 MG ORAL CAPSULE 121575 TAMSULOSIN HCL Inactive [facility] MELATONIN 3 MG ORAL TABLET give 1 tab by mouth at HS [facility] MELATONIN 3 MG ORAL TABLET 517580 MELATONIN Inactive SEROQUEL 100 MG ORAL TABLET 1 tab daily SEROQUEL 100 MG ORAL TABLET 122760 QUETIAPINE FUMARATE Inactive AMARYL 2 MG ORAL TABLET give 2.5 tabs PO daily AMARYL 2 MG ORAL TABLET 996943 GLIMEPIRIDE Inactive SEROQUEL 25 MG ORAL TABLET Take two tabs by mouth in the morning, take 4 tablets at night SEROQUEL 25 MG ORAL TABLET 643955 QUETIAPINE FUMARATE Inactive QUETIAPINE FUMARATE 25 MG ORAL TABLET 2 tabs BID QUETIAPINE FUMARATE 25 MG ORAL TABLET 848792 QUETIAPINE FUMARATE Inactive QUETIAPINE FUMARATE 100 MG ORAL TABLET 1 tab PO at HS QUETIAPINE FUMARATE 100 MG ORAL TABLET 796248 QUETIAPINE FUMARATE Inactive LATUDA 40 MG ORAL TABLET 1.5 tab by mouth in the afternoon 05/23 LATUDA 40 MG ORAL TABLET LURASIDONE HCL Inactive TOPAMAX 25 MG ORAL TABLET 1 tab BID PRN TOPAMAX 25 MG ORAL TABLET 285491 TOPIRAMATE Inactive EFFEXOR XR 150 MG ORAL [...] nightly [facility] MELATONIN 3 MG ORAL TABLET 101860 MELATONIN Inactive [facility] MILK OF MAGNESIA 400 MG/5ML ORAL SUSPENSION 30ml by mouth bid prn [facility] MILK OF MAGNESIA 400 MG/5ML ORAL SUSPENSION MAGNESIUM HYDROXIDE Inactive CEFDINIR 300 MG ORAL CAPSULE by mouth twice a day CEFDINIR 300 MG ORAL CAPSULE 308039 CEFDINIR Inactive AZITHROMYCIN 500 MG INTRAVENOUS SOLUTION RECONSTITUTED 1 po q day AZITHROMYCIN 500 MG INTRAVENOUS SOLUTION RECONSTITUTED [id number] AZITHROMYCIN Inactive AMOXICILLIN 500 MG ORAL CAPSULE 2 po BID x 10 days AMOXICILLIN 500 MG ORAL CAPSULE 164266 AMOXICILLIN Inactive PENICILLIN V POTASSIUM 500 MG ORAL TABLET 1 pill by mouth three times daily PENICILLIN V POTASSIUM 500 MG ORAL TABLET 166171 PENICILLIN V POTASSIUM Inactive KEFLEX 500 MG ORAL CAPSULE 1 po BID x 7 days KEFLEX 500 MG ORAL CAPSULE 353369 CEPHALEXIN Inactive Immunizations Vaccine Administration Date Value [...] Fluvirin, Fluarix, Agriflu(>=18 yo)) Fluzone (>3 yrs.) [BCP994] Influenza, seasonal, injectable pneumococcal immunization administered Pneumovax [...] ... - Chemistry sodium, serum 135 mmol/L [phone]/08/22 carbon dioxide, venous blood 28.4 mmol/L 21.0-32.0 [...] mg/g {creat} 0-29 cholesterol, serum 263 mg/dL 879-259 1659/08/22 triglyceride, serum, fasting 1312 mg/dL 30-200 HDL [...] 80 mg/L 0-19 Office Visit: TCM from correction - Lab PSA (prostate specific antigent), recommendation and action PSA ordered Encounters Code Encounter Date Provider Facility CPT-95242 [id number] Vst-Est Level IV 15:10:01 ENTEROSTOMAL THERAPY NURSE Mason Loredo MD [facility] CPT-19034 [id number] Vst-Est Level III 11:00:25 CDT Shavonne Feliciano PA-C [facility] CPT-08948 Level 3 Est. Patient 09:12:14 ENTEROSTOMAL THERAPY NURSE Mima Fierroum [facility]-38495 Level 3 Est. Patient 16:52:51 CDT Vanessa Hickey MD [facility]-28578 Level 3 Est. Patient 17:40:16 CDT Mima Erazo [facility]-74664 Level 3 Est. Patient 14:34:52 CDT Vanessa Hickey MD [facility]-64745 Level 3 Est. Patient 16:27:51 CDT Mima Erazo [facility]-53636 Level 3 Est. Patient 14:39:00 ENTEROSTOMAL THERAPY NURSE Vanessa Hickey MD [facility]-06671 Level 2 Est. Patient 18:43:34 CDT Mima Erazo [facility] CPT-00691 Level 3 Est. Patient 16:22:09 CDT Cherelle Avila [facility]-44205 Level 4 Est. Patient 17:55:14 CDT Mima Erazo [facility] CPT-39093 Level 2 Est. Patient 17:13:21 CDT Alina Castaneda MD [facility]-03142 Level 3 Est. Patient 14:46:15 CDT Vanessa Hickey MD [facility]-84703 Level 3 Est. Patient 09:34:56 CDT Alina Castaneda MD [facility]94893 Level 3 Est. Patient 21:40:19 CDT Mima Vadimjerrell [facility]-77434 Level 3 Est. Patient 09:26:40 CDT [address] [facility]-34312 Level 3 Est. Patient 12:36:43 CDT Vanessa Hickey MD [facility]-89529 Level 3 Est. Patient 12:57:49 CDT Vanessa Hickey MD [facility]-39243 Level 3 Est. Patient 00:28:25 CDT Alina Castaneda MD [facility]-15080 Level 2 Est. Patient 12:52:14 CDT Alina Castaneda MD [facility]-16938 Level 3 Est. Patient 11:51:18 ENTEROSTOMAL THERAPY NURSE Alina Castaneda MD [facility]-00127 Level 3 Est. Patient 10:09:22 ENTEROSTOMAL THERAPY NURSE Alina Castaneda MD [facility]19561 Level 3 Est. Patient 14:36:26 ENTEROSTOMAL THERAPY NURSE Marvel Charles [facility]-35740 Level 3 Est. Patient 13:34:47 ENTEROSTOMAL THERAPY NURSE Alina Castaneda MD [facility]-19485 Level 3 Est. Patient 19:52:08 ENTEROSTOMAL THERAPY NURSE Alina Castaneda MD [facility]-09891 Level 3 Est. Patient 10:01:51 ENTEROSTOMAL THERAPY NURSE Marvel Charles [facility]-58778 Level 3 Est. Patient 21:54:06 CDT Vanessa Hickey MD [facility]-29320 Level 3 Est. Patient 08:54:46 CDT Alina Castaneda MD [facility]-76962 Level 3 Est. Patient 09:32:11 CDT Marvel Charles [facility]-25728 Level 3 Est. Patient 12:02:49 CDT Alina Castaneda MD [facility]73625 Level 3 Est. Patient 19:17:33 CDT Alina Castaneda MD [facility]-38879 Level 3 Est. Patient 13:19:10 CDT Marvel Charles [facility]-86084 Level 3 Est. Patient 08:20:05 CDT Alina Castaneda MD [facility]-85918 Level 3 Est. Patient 15:17:18 CDT Alina Castaneda MD [facility]79041 Level 3 Est. Patient 14:25:36 ENTEROSTOMAL THERAPY NURSE Marvel Charles [facility]-10490 Level 3 Est. Patient 10:09:15 ENTEROSTOMAL THERAPY NURSE Marvel Charles [facility]-98836 Level 3 Est. Patient 21:28:43 CDT Alina Castaneda MD [facility]34041 Level 3 Est. Patient 15:20:11 [facility]-40020 Level 4 Est. Patient 19:08:12 CDT Alina Castaneda MD [facility]-29544 Level 3 Est. Patient 15:06:39 CDT Marvel Charles [facility]-14797 Level 4 Est. Patient 17:48:15 CDT Alina Castaneda MD [facility]-16415 Level 3 Est. Patient 14:53:49 CDT Alina Castaneda MD [facility]-91122 Level 3 Est. Patient 09:35:16 CDT Alina Castaneda MD [facility]-57982 Level 3 Est. Patient 12:23:22 CDT Alina Castaneda MD [facility]74992 Level 3 Est. Patient 16:19:15 CDT Alina Castaneda MD [facility]-45968 Level 3 Est. Patient 21:39:56 ENTEROSTOMAL THERAPY NURSE Alina Castaneda MD [facility]-67432 Level 4 Est. Patient 14:12:56 ENTEROSTOMAL THERAPY NURSE Alina Castaneda MD [facility]-59867 Level 2 Est. Patient 15:34:57 ENTEROSTOMAL THERAPY NURSE Alina Castaneda MD [facility]-76489 Level 3 Est. Patient 12:17:04 ENTEROSTOMAL THERAPY NURSE Alina Castaneda MD [facility]76866 Level 3 Est. Patient 09:18:18 ENTEROSTOMAL THERAPY NURSE Marvel Charles [facility]-02687 Level 2 Est. Patient 21:50:24 CDT Alina Castaneda MD [facility]46820 Level 3 Est. Patient 09:17:28 CDT Marvel Charles [facility]-75725 Level 4 Est. Patient 18:54:02 CDT Alina Castaneda MD [facility]83595 Level 3 Est. Patient 10:47:10 CDT Alina Castaneda MD [facility]24135 Level 3 Est. Patient 09:22:20 CDT Marvel Charles [facility]-99184 Level 3 Est. Patient 16:39:43 CDT Marvel Charles [facility]-93820 Level 3 Est. Patient 16:05:16 CDT Alina Castaneda MD [facility]25746 Level 3 Est. Patient 00:29:15 CDT Alina Castaneda MD [facility]28528 Level 3 Est. Patient 10:49:22 ENTEROSTOMAL THERAPY NURSE Marvel Charles [facility]-44441 Level 3 Est. Patient 21:30:19 ENTEROSTOMAL THERAPY NURSE Alina Castaneda MD PhD [facility] CPT-89955 Level 4 Est. Patient 17:04:11 ENTEROSTOMAL THERAPY NURSE Marvel Charles [facility] CPT-61911 Level 3 Est. Patient 15:34:11 ENTEROSTOMAL THERAPY NURSE [place] [facility] CPT-99296 Level 2 Est. Patient 12:51:58 ENTEROSTOMAL THERAPY NURSE Alina Castaneda MD PhD [facility] CPT-05488 Level 3 Est. Patient 13:20:01 ENTEROSTOMAL THERAPY NURSE Alina Castaneda MD PhD [facility] CPT-18784 Level 3 Est. Patient 09:23:35 CDT Alina Castaneda MD PhD [facility] Procedures Code Procedure Name Date Entry Date Standard Description CPT-G0439 [facility] Annual Wellness Exam 15:49:52 ENTEROSTOMAL THERAPY NURSE CPT-42405 Level 3 [facility] 13:20:19 CDT CPT-TCMM Transitional Care Mgmt-Moderate 12:32:19 CDT CPT-12148 Level 2 [facility] 09:01:11 CDT CPT-62291 HGBA1C - LAB USE ONLY 09:30:27 ENTEROSTOMAL THERAPY NURSE CPT-39145 BMP - LAB USE ONLY 09:30:27 ENTEROSTOMAL THERAPY NURSE CPT-04155 Venipuncture Draw Fee 09:30:26 ENTEROSTOMAL THERAPY NURSE CPT-TCMM Transitional Care Mgmt-Moderate 10:25:31 CDT CPT-53907 Bladder Scan 14:34:53 CDT CPT-75776 Bladder Scan 14:39:01 ENTEROSTOMAL THERAPY NURSE CPT-TCMM Transitional Care Mgmt-Moderate 10:30:19 ENTEROSTOMAL THERAPY NURSE CPT-94767 Bladder Scan 12:36:44 CDT CPT-72648 Bladder Scan 21:54:06 CDT CPT-G0008 Administration of Influenza Virus Vaccine 13:05:26 CDT CPT-30334 Fluzone Quadrivalent Intramuscular Suspension 0.5 ML 13: 05:26 CDT CPT-67515 Administration single or combination vaccine inc oral 11 :49:51 CDT CPT-42082 Pneumovax 11:49:51 CDT CPT-76792 Ribs unilateral 2V 12:37:22 ENTEROSTOMAL THERAPY NURSE CPT-65246 Chest 2V Frontal and Lat 17:15:26 CDT CPT-18009 Abx/Therapy Injection 18:54:02 CDT CPT-J0696 Rocephin 1000 mg (Ceftriaxone) 16:00:32 CDT CPT-08117 Chest 2V Frontal and Lat 15:26:45 CDT CPT-19222 Chest 2V Frontal and Lat 10:23:27 CDT CPT-00485 Venipuncture Draw Fee 10:11:00 CDT CPT-13705 Administration single or combination vaccine inc oral 11 :56:38 CDT CPT-97135 Influenza split virus > age 3 11:56:38 CDT CPT-10390 Venipuncture Draw Fee 08:49:54 ENTEROSTOMAL THERAPY NURSE CPT-68945 EKG Trac and Interp 17:54:19 ENTEROSTOMAL THERAPY NURSE
--- OUTSIDE RECORDS SUMMARY | 2018-07-02 15:04 | XMS REPORT | Clinical Summary ---
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 Active Mason Lroedo MD Other persistent mental disorders due to [...] Name NDC Status Provider Patient Instruction AMBIEN 10 MG ORAL TABLET 1 at night as needed for sleep ZOLPIDEM TARTRATE 21485378315 Active Mason Loredo MD Active VERAPAMIL HCL ER 180 MG ORAL TABLET EXTENDED RELEASE 1 pill by mouth twice daily, for migraine prevention VERAPAMIL HCL 10596291656 No Longer Active Mason Loredo MD Active EFFEXOR XR 150 MG ORAL CAPSULE EXTENDED RELEASE 24 HOUR 1 tab daily VENLAFAXINE HCL 85734499452 No Longer Active Mason Loredo MD Active VENLAFAXINE HCL ER 150 MG ORAL CAPSULE EXTENDED RELEASE 24 HOUR 1 tablet 2 times a day VENLAFAXINE HCL 14553755313 Active Mason Loredo MD Active TOPAMAX 25 MG ORAL TABLET 1 tab BID PRN TOPIRAMATE 14756441873 No Longer Active Mason Loredo MD Active LATUDA 40 MG ORAL TABLET 1.5 tab by mouth in the afternoon 05/23 LURASIDONE HCL 10201261329 No Longer Active Mason Loredo MD Active QUETIAPINE FUMARATE 100 MG ORAL TABLET 1 tab PO at HS QUETIAPINE FUMARATE 24368009204 No Longer Active Mason Loredo MD Active QUETIAPINE FUMARATE 25 MG ORAL TABLET 2 tabs BID QUETIAPINE FUMARATE 73056989766 No Longer Active Mason Loredo MD Active ATORVASTATIN CALCIUM 10 MG ORAL TABLET Take 1 tablet by mouth daily. Recheck labs in 3 months ATORVASTATIN CALCIUM 43939738276 Active Mya Ledezma MA Active VERAPAMIL HCL ER 180 MG ORAL TABLET EXTENDED RELEASE 1 tab BID VERAPAMIL HCL 71078243044 Active Shavonne Feliciano PA-C Active SEROQUEL 25 MG ORAL TABLET Take two tabs by mouth in the morning, take 4 tablets at night QUETIAPINE FUMARATE 71755273228 No Longer Active Shavonne Feliciano PA-C Active AMARYL 2 MG ORAL TABLET give 2.5 tabs PO daily GLIMEPIRIDE 56441067158 No Longer Active Shavonne Feliciano PA-C Active AMARYL 2 MG ORAL TABLET give 2 tabs PO in the morning GLIMEPIRIDE 55170916238 Active Shavonne Feliciano PA-C Active FENOFIBRATE 145 MG ORAL TABLET 1 tab PO in the morning FENOFIBRATE 86129642078 Active Shavonne Feliciano PA-C Active SEROQUEL 100 MG ORAL TABLET 1 tab daily QUETIAPINE FUMARATE 07643630214 No Longer Active Shavonne Feliciano PA-C Active [facility] MELATONIN 3 MG ORAL TABLET give 1 tab by mouth at HS MELATONIN 76007633197 No Longer Active Gabrielle Marquez MA Active NOVOLOG FLEXPEN 100 UNIT/ML SUBCUTANEOUS SOLUTION PEN-INJECTOR sliding scale INSULIN ASPART 95295732981 Active Gabrielle Marquez MA Active METFORMIN HCL 1000 MG ORAL TABLET 1 tab by mouth BID METFORMIN HCL 31606881380 Active Gabrielle Marquez MA Active [facility] MELATONIN 3 MG ORAL TABLET 1 tab nightly MELATONIN 48604265544 Active Gabrielle Marquez MA Active TAMSULOSIN HCL 0.4 MG ORAL CAPSULE give 2 capsules PO each evening TAMSULOSIN HCL 91690308162 No Longer Active Gabrielle Marquez MA Active VITAMIN D 2000 UNIT ORAL CAPSULE Take one by mouth daily CHOLECALCIFEROL 62940195497 No Longer Active Gabrielle Marquez MA Active LEVEMIR 100 UNIT/ML SUBCUTANEOUS SOLUTION 10 u at bedtime INSULIN DETEMIR 20676299736 Active Gabrielle Marquez MA Active TAMSULOSIN HCL 0.4 MG ORAL CAPSULE 2 every night for urine flow TAMSULOSIN HCL 52417650489 Active Gabrielle Marquez MA Active DIVALPROEX SODIUM 125 MG ORAL TABLET DELAYED RELEASE 1 tab each morning 02/17 DIVALPROEX SODIUM 90666285274 Active Gabrielle Marquez MA Active D 1000 TABLET 2 tab by mouth BID CHOLECALCIFEROL TABS 21431524573 Active Gabrielle Marquez MA Active ALIGN 4 MG ORAL CAPSULE 1 tab at hs PROBIOTIC PRODUCT 10678279520 Active Gabrielle Marquez MA Active CLONAZEPAM 1 MG ORAL TABLET 1 pill by mouth two times daily CLONAZEPAM 93249890164 Active Gabrielle Marquez MA Active OCEAN NASAL SPRAY SOLUTION 2 sprays in both nostrils every 8 hours as needed for dry mucous membranes SALINE SOLN 58346328805 Active Mason Loredo MD Active BETHANECHOL CHLORIDE 25 MG ORAL TABLET Take 1 tablet mouth four times a day BETHANECHOL CHLORIDE 26582752168 Active Mason Loredo MD Active [facility] LUBRICANT EYE DROPS 0.4-0.3 % OPHTHALMIC SOLUTION POLYETHYL GLYCOL-PROPYL GLYCOL 20244522543 No Longer Active Mason Loredo MD Active TYLENOL 8 HOUR 650 MG ORAL TABLET EXTENDED RELEASE 1 tab QID prn ACETAMINOPHEN 63792900190 No Longer Active Mason Loredo MD Active TIMOPTIC OCUDOSE 0.5 % OPHTHALMIC SOLUTION instill one drop into both eyes q12H TIMOLOL MALEATE 47689655923 Active Mason Loredo MD Active TRAZODONE HCL 100 MG ORAL TABLET 1 every night to prevent headaches TRAZODONE HCL 48470192363 No Longer Active Mason Loredo MD Active TRAVATAN Z 0.004 % OPHTHALMIC SOLUTION 1 drop each eye daily 2017 TRAVOPROST 31282107569 No Longer Active Mason Loredo MD Active LATUDA 60 MG ORAL TABLET 1 tab daily LURASIDONE HCL 49619870485 No Longer Active Mason Loredo MD Active MORPHINE SULFATE ER 30 MG ORAL TABLET EXTENDED RELEASE Take one capsule BID MORPHINE SULFATE 71313278573 No Longer Active Mason Loreod MD Active TRUE METRIX BLOOD GLUCOSE TEST IN VITRO STRIP Check blood sugars 3x/day. 2015 GLUCOSE BLOOD 19608756944 No Longer Active Mason Loredo MD Active TRUEPLUS LANCETS 30G 3x a day LANCETS 41207149018 No Longer Active Mason Loredo MD Active MYLANTA GAS RELIEF MAXIMUM STR 125 MG ORAL CAPSULE 30cc every 4 hours prn SIMETHICONE 97081379662 No Longer Active Mason Loredo MD Active IMODIUM A-D 2 MG ORAL TABLET 1 tab QID as needed LOPERAMIDE HCL 72365906468 No Longer Active Mason Loredo MD Active FLONASE ALLERGY RELIEF 50 MCG/ACT NASAL SUSPENSION One spray each nostril BID x 1 week then daily FLUTICASONE PROPIONATE 83581468157 No Longer Active Mason Loredo MD Active FLUVOXAMINE MALEATE 100 MG ORAL TABLET take one tab every AM et HS, and take 1 /2 tab at noon FLUVOXAMINE MALEATE 91204620558 No Longer Active Mason Loredo MD Active BD PEN NEEDLE MINI U/F 31G X 5 MM 4 a day INSULIN PEN NEEDLE 40330394565 No Longer Active Mason Loredo MD Active AMITIZA 24 MCG ORAL CAPSULE Take one capsule BID for constipation LUBIPROSTONE 42238837190 No Longer Active Mason Loredo MD Active TRUEPLUS LANCETS 30G 3 a day LANCETS 21344827982 No Longer Active Mason Loredo MD Active CORICIDIN HBP CONGESTION/COUGH 10-200 MG ORAL CAPSULE Take as directed on box as needed for cold/flu symptoms DEXTROMETHORPHAN- GUAIFENESIN 79662157125 No Longer Active Mason Loredo MD Active OMEGA-3 300 MG ORAL CAPSULE 4 caps by mouth daily OMEGA-3 FATTY ACIDS 49005902523 No Longer Active Mason Loredo MD Active HUMALOG KWIKPEN 100 UNIT/ML SUBCUTANEOUS SOLUTION PEN-INJECTOR sliding scale if needed INSULIN LISPRO (HUMAN) 97093376640 No Longer Active Mason Loredo MD Active TRUETEST TEST IN VITRO STRIP check blood sugars 3x/day GLUCOSE BLOOD 61956023150 No Longer Active Mason Loredo MD Active ALFUZOSIN HCL ER 10 MG ORAL TABLET EXTENDED RELEASE 24 HOUR 1 tablet daily ALFUZOSIN HCL 12638323079 No Longer Active Mason Loredo MD Active BD INSULIN SYRINGE 28G X 1/2" 1 ML 1 four times per day INSULIN SYRINGE-NEEDLE U-100 66380507625 No Longer Active Mason Loredo MD Active LEVEMIR FLEXTOUCH 100 UNIT/ML SUBCUTANEOUS SOLUTION PEN-INJECTOR 60 units SQ each evening, for diabetes INSULIN DETEMIR 67893471714 No Longer Active Mason Loredo MD Active LACTULOSE 20 GM/30ML ORAL SOLUTION give 30 Ml PO BID PRN LACTULOSE 10819117841 Active Mason Loredo MD Active COLACE 100 MG ORAL CAPSULE 1 tab BID PRN DOCUSATE SODIUM 53698220877 Active Mason Loredo MD Active LATANOPROST 0.005 % OPHTHALMIC SOLUTION instill 1 drop in both eyes at bed time LATANOPROST 88937963917 Active Mason Loredo MD Active MIRALAX ORAL POWDER 17g by mouth q12h, for constipation POLYETHYLENE GLYCOL 3350 29475535348 Active Mason Loredo MD Active IBUPROFEN 400 MG ORAL TABLET 1 tab Q6H PRN IBUPROFEN 69144365287 Active Mason Loredo MD Active FLUVOXAMINE MALEATE 50 MG ORAL TABLET 1 tab by mouth daily 04/01 FLUVOXAMINE MALEATE 49847579601 No Longer Active Mima Erazo APRN Active TRUE METRIX METER w/Device KIT Check blood sugars 3x/day BLOOD GLUCOSE MONITORING SUPPL 94118992183 Active Marvel MARROQUIN Active LATUDA 60 MG ORAL TABLET Take one by mouth daily LURASIDONE HCL 95982477042 No Longer Active Mima Erazo APRN Active [facility] MILK OF MAGNESIA 400 MG/5ML ORAL SUSPENSION 30ml by mouth bid prn MAGNESIUM HYDROXIDE 43143654104 Active Mason Loredo MD Active TRAVATAN Z 0.004 % OPHTHALMIC SOLUTION 1 gtt each eye daily TRAVOPROST 35136793627 No Longer Active Mason Loredo MD Active LISINOPRIL 20 MG ORAL TABLET 1 BID LISINOPRIL 32722525912 No Longer Active Mason Loredo MD Active ZOLPIDEM TARTRATE 10 MG ORAL TABLET take at bedtime ZOLPIDEM TARTRATE 88593732455 No Longer Active Mason Loredo MD Active HYDROCODONE-ACETAMINOPHEN 5-325 MG ORAL TABLET 2 tabs by mouth three times daily for pain HYDROCODONE-ACETAMINOPHEN 31941216574 No Longer Active Mason Loredo MD Active ZOFRAN 4 MG ORAL TABLET 1 po q4hr PRN Nausea ONDANSETRON HCL 11031213608 No Longer Active Mason Loredo MD Active LOMOTIL 2.5-0.025 MG ORAL TABLET take 1-2 tabs PO after each stool, no more than 8 in 24 hours DIPHENOXYLATE-ATROPINE 38109412292 No Longer Active Mason Loredo MD Active COLACE 100 MG ORAL CAPSULE 1 pill by mouth twice daily, for constipation 2014 DOCUSATE SODIUM 48657558458 No Longer Active Mima Erazo APRN Active TOLTERODINE TARTRATE 2 MG ORAL TABLET 1 pill twice daily, for bladder TOLTERODINE TARTRATE 65182353670 No Longer Active Vanessa Hickey MD Active AMITIZA 24 MCG ORAL CAPSULE Take one capsule BID for constipation. LUBIPROSTONE 16797897839 No Longer Active Vanessa Hickey MD Active METOPROLOL SUCCINATE ER 100 MG ORAL TABLET EXTENDED RELEASE 24 HOUR 1 by mouth daily for blood pressure METOPROLOL SUCCINATE 86438487305 No Longer Active Grace ROJAS Active METFORMIN HCL ER 500 MG ORAL TABLET EXTENDED RELEASE 24 HOUR Take three tablets by mouth everyday METFORMIN HCL 80996658209 No Longer Active Grace Azam RMA Active LOVAZA 1 GM ORAL CAPSULE 4 daily (for triglycerides) [id number] ETHYL ESTERS 92762516373 No Longer Active Grace Azam RMA Active TRAZODONE HCL 100 MG ORAL TABLET 1 tab by mouth for sleep TRAZODONE HCL 84536944008 No Longer Active Grace Azam RMA Active NOVOFINE 32G X 6 MM use one four times per day INSULIN PEN NEEDLE 18742091234 No Longer Active Grace Azam RMA Active BACTROBAN 2 % EXTERNAL CREAM Apply to affected area BID for up to 10 days MUPIROCIN CALCIUM 90898146355 No Longer Active Grace Azam RMA Active KEFLEX 500 MG ORAL CAPSULE 1 po BID x 7 days CEPHALEXIN 44207845612 No Longer Active Cherelle Avila APRN Active FLUVOXAMINE MALEATE 100 MG ORAL TABLET Take one (1) tablet by mouth am, 1/2 at noon FLUVOXAMINE MALEATE 59841529325 No Longer Active Mima Erazo APRN Active FLUVOXAMINE MALEATE 100 MG ORAL TABLET Take 1/2 tab at noon 03/04 FLUVOXAMINE MALEATE 86399349957 No Longer Active Cherelle Avila APRN Active ACCU-CHEK ROSA DEVICE Use device to check blood sugars BLOOD GLUCOSE MONITORING SUPPL 14383207679 No Longer Active Marvel MARROQUIN Active ACCU-CHEK ROSA IN VITRO STRIP use strips with device to check blood sugars 3 times daily GLUCOSE BLOOD 77157062940 No Longer Active Marvel MARROQUIN Active CYCLOBENZAPRINE HCL 10 MG ORAL TABLET 1 tablet by mouth three times daily, scheduled CYCLOBENZAPRINE HCL 84360033958 No Longer Active Alina Castaneda MD PhD Active HUMALOG 100 UNIT/ML SUBCUTANEOUS SOLUTION Take 20 units with breakfast, 10u with lunch and suppetr. INSULIN LISPRO (HUMAN) 41320083040 No Longer Active Alina Castaneda MD PhD Active TRUETEST TEST IN VITRO STRIP check sugars 4x/day GLUCOSE BLOOD 54022867373 No Longer Active Alina Castaneda MD PhD Active MORPHINE SULFATE 30 MG ORAL TABLET 1 pill by mouth twice daily, for pain 2013 MORPHINE SULFATE 98091666685 No Longer Active Mason Loredo MD Active ACYCLOVIR 400 MG ORAL TABLET 1 pill three times daily x 5 days, for cold sore outbreak ACYCLOVIR 83490088021 No Longer Active Alina Castaneda MD PhD Active PENICILLIN V POTASSIUM 500 MG ORAL TABLET 1 pill by mouth three times daily PENICILLIN V POTASSIUM 46384267660 No Longer Active Alina Castaneda MD PhD Active UROXATRAL 10 MG ORAL TABLET EXTENDED RELEASE 24 HOUR Take 1 tablet by mouth daily ALFUZOSIN HCL 95886388355 No Longer Active Alina Castaneda MD PhD Active THIOTHIXENE 5 MG ORAL CAPSULE by mouth twice a day THIOTHIXENE 81268625730 No Longer Active Alina Castaneda MD PhD Active ZYPREXA 7.5 MG ORAL TABLET 1 at HS OLANZAPINE 76154013652 No Longer Active Alina Castaneda MD PhD Active DETROL LA 4 MG ORAL CAPSULE EXTENDED RELEASE 24 HOUR Take 1 tablet by mouth daily TOLTERODINE TARTRATE 63284433776 No Longer Active Alina Castaneda MD PhD Active TERESE CONTOUR TEST IN VITRO STRIP monitor blood sugars 3x/day GLUCOSE BLOOD 13188542406 No Longer Active Alina Castaneda MD PhD Active EQL TRUETEST TEST IN VITRO STRIP Test blood sugar TID GLUCOSE BLOOD 92227043871 No Longer Active Alina Castaneda MD PhD Active FLUTICASONE PROPIONATE 50 MCG/ACT NASAL SUSPENSION 2 sprays each nostril qDay x 30 days FLUTICASONE PROPIONATE 31173022938 No Longer Active Alina Castaneda MD PhD Active IBUPROFEN 200 MG ORAL TABLET 1 Q 6 hr. PRN IBUPROFEN 96286622698 No Longer Active Alina Castaneda MD PhD Active NIACIN ER 500 MG ORAL TABLET EXTENDED RELEASE 4 qHS (for triglycerides) 01/13 NIACIN 91913997929 No Longer Active Alina Castaneda MD PhD Active SAPHRIS 5 MG SUBLINGUAL TABLET SUBLINGUAL by mouth twice a day ASENAPINE MALEATE 76786065973 No Longer Active Maljohn Mackenzieglestela MENDOZAP Active ACETAMINOPHEN 500 MG ORAL TABLET 2 Q 6 hr. PRN ACETAMINOPHEN 08730606377 No Longer Active Maliheh Ziglari MACHINE CLOTH EXAMINER Active ORPHENADRINE CITRATE ER 100 MG ORAL TABLET EXTENDED RELEASE 12 HOUR 1 every 12 hr. as needed ORPHENADRINE CITRATE 45453347199 No Longer Active Alina Castaneda MD PhD Active NIACIN ER 500 MG ORAL TABLET EXTENDED RELEASE 2 qHS NIACIN 95138748233 No Longer Active Alina Castaneda MD PhD Active AMOXICILLIN 500 MG ORAL CAPSULE 2 po BID x 10 days AMOXICILLIN 08247937987 No Longer Active Alina Castaneda MD PhD Active HYDROCODONE-ACETAMINOPHEN 7.5-325 MG ORAL TABLET 1 four times a day as needed for pain HYDROCODONE-ACETAMINOPHEN 29399093894 No Longer Active Alina Castaneda MD PhD Active DOXEPIN HCL 10 MG ORAL CAPSULE Take 1 tablet by mouth daily DOXEPIN HCL 15044391718 No Longer Active Salina Han [facility] Active NAVANE 10 MG CAPS 1/2 tablet twice a day THIOTHIXENE No Longer Active Salina ROJAS Active CYCLOBENZAPRINE HCL 10 MG ORAL TABLET 1/2 tablet by mouth every 8 hours as needed for muscle spasms CYCLOBENZAPRINE HCL 47164458698 No Longer Active Alina Castaneda MD PhD Active BACTROBAN 2 % EXTERNAL CREAM apply to ear and nose twice daily MUPIROCIN CALCIUM 41725652115 No Longer Active Alina Castaneda MD PhD Active HYDROCODONE-ACETAMINOPHEN 5-325 MG ORAL TABLET take one tablet by mouth every four hours as needed for pain HYDROCODONE-ACETAMINOPHEN 29863473990 No Longer Active Alina Castaneda MD PhD Active ZYPREXA 5 MG ORAL TABLET take one tablet by mouth every evening OLANZAPINE 98582629392 No Longer Active Alina Castaneda MD PhD Active ALBUTEROL SULFATE (2.5 MG/3ML) 0.083% INHALATION NEBULIZATION SOLUTION one vial per nebulizer TID and PRN cough/soa ALBUTEROL SULFATE 12784823589 No Longer Active Alina Castaneda MD PhD Active GUAIFENESIN ER 600 MG ORAL TABLET EXTENDED RELEASE 12 HOUR 1 tablet by mouth twice daily if needed for cough GUAIFENESIN 55965619757 No Longer Active Marvel MARROQUIN Active AZITHROMYCIN 500 MG INTRAVENOUS SOLUTION RECONSTITUTED 1 po q day AZITHROMYCIN 49672512794 No Longer Active Alina Castaneda MD PhD Active PROMETHAZINE-CODEINE 6.25-10 MG/5ML ORAL SYRUP 1 tsp po q 6 hours prn cough PROMETHAZINE-CODEINE 06609857547 No Longer Active Alina Castaneda MD PhD Active CEFDINIR 300 MG ORAL CAPSULE by mouth twice a day CEFDINIR 27953021736 No Longer Active Alina Castaneda MD PhD Active METFORMIN HCL ER 500 MG ORAL TABLET EXTENDED RELEASE 24 HOUR Take 3 tablets by mouth everyday METFORMIN HCL 21377080157 No Longer Active Alina Castaneda MD PhD Active LEVEMIR 100 UNIT/ML SUBCUTANEOUS SOLUTION 90 units SQ qHS INSULIN DETEMIR 69083626246 No Longer Active Marvel MARROQUIN Active TOPROL XL 100 MG ORAL TABLET EXTENDED RELEASE 24 HOUR 1 @ HS METOPROLOL SUCCINATE 65326157037 No Longer Active Marvel MARROQUIN Active ALLOPURINOL 300 MG ORAL TABLET Take one by mouth daily ALLOPURINOL 15010035145 Active Mima Erazo ACCOUNTS SPECIALIST Active ZYPREXA 10 MG ORAL TABLET Take one by mouth daily OLANZAPINE 36062115291 No Longer Active Alina Castaneda MD PhD Active NOVOLOG 100 UNIT/ML SUBCUTANEOUS SOLUTION 40 units with every meal INSULIN ASPART 53656217111 No Longer Active Alina Castaneda MD PhD Active VERAPAMIL HCL ER 120 MG ORAL TABLET EXTENDED RELEASE 1 qPM 09/08 VERAPAMIL HCL 33056215480 No Longer Active Salina Ervinford RMA Active ZYPREXA 15 MG ORAL TABLET Take 1 tablet by mouth daily OLANZAPINE 77470628080 No Longer Active Marvel MARROQUIN Active ALBUTEROL SULFATE (2.5 MG/3ML) 0.083% INHALATION NEBULIZATION SOLUTION 1 neb tid and prn cough ALBUTEROL SULFATE 96144981897 No Longer Active Alina Castaneda MD PhD Active LANTUS 100 UNIT/ML SUBCUTANEOUS SOLUTION 60 units sq q hs INSULIN GLARGINE 99240793749 No Longer Active CRYSTAL Suarez Active ALBUTEROL SULFATE (2.5 MG/3ML) 0.083% INHALATION NEBULIZATION SOLUTION 1 neb tid and prn cough ALBUTEROL SULFATE (2.5 MG/3ML) 0.083% INHALATION NEBULIZATION SOLUTION 886988 ALBUTEROL SULFATE Inactive ZYPREXA 15 MG ORAL TABLET Take 1 tablet by mouth daily ZYPREXA 15 MG ORAL TABLET 251801 OLANZAPINE Inactive VERAPAMIL HCL ER 120 MG ORAL TABLET EXTENDED RELEASE 1 qPM 09/08 VERAPAMIL HCL ER 120 MG ORAL TABLET EXTENDED RELEASE VERAPAMIL HCL Inactive ZYPREXA 10 MG ORAL TABLET Take one by mouth daily ZYPREXA 10 MG ORAL TABLET 652401 OLANZAPINE Inactive TOPROL XL 100 MG ORAL TABLET EXTENDED RELEASE 24 HOUR 1 @ HS TOPROL XL 100 MG ORAL TABLET EXTENDED RELEASE 24 HOUR METOPROLOL SUCCINATE Inactive LEVEMIR 100 UNIT/ML SUBCUTANEOUS SOLUTION 90 units SQ qHS LEVEMIR 100 UNIT/ML SUBCUTANEOUS SOLUTION INSULIN DETEMIR Inactive PROMETHAZINE-CODEINE 6.25-10 MG/5ML ORAL SYRUP 1 tsp po q 6 hours prn cough PROMETHAZINE-CODEINE 6.25-10 MG/5ML ORAL SYRUP 021003 PROMETHAZINE-CODEINE Inactive GUAIFENESIN ER 600 MG ORAL TABLET EXTENDED RELEASE 12 HOUR 1 tablet by mouth twice daily if needed for cough GUAIFENESIN ER 600 MG ORAL TABLET EXTENDED RELEASE 12 HOUR GUAIFENESIN Inactive ALBUTEROL SULFATE (2.5 MG/3ML) 0.083% INHALATION NEBULIZATION SOLUTION one vial per nebulizer TID and PRN cough/soa ALBUTEROL SULFATE (2.5 MG/3ML) 0.083% INHALATION NEBULIZATION SOLUTION 018726 ALBUTEROL SULFATE Inactive ZYPREXA 5 MG ORAL TABLET take one tablet by mouth every evening ZYPREXA 5 MG ORAL TABLET 370520 OLANZAPINE Inactive HYDROCODONE-ACETAMINOPHEN 5-325 MG ORAL TABLET take one tablet by mouth every four hours as needed for pain HYDROCODONE-ACETAMINOPHEN 5-325 MG ORAL TABLET 474281 HYDROCODONE-ACETAMINOPHEN Inactive BACTROBAN 2 % EXTERNAL CREAM apply to ear and nose twice daily BACTROBAN 2 % EXTERNAL CREAM 017406 MUPIROCIN CALCIUM Inactive CYCLOBENZAPRINE HCL 10 MG ORAL TABLET 1/2 tablet by mouth every 8 hours as needed for muscle spasms CYCLOBENZAPRINE HCL 10 MG ORAL TABLET 320642 CYCLOBENZAPRINE HCL Inactive NAVANE 10 MG CAPS 1/2 tablet twice a day NAVANE 10 MG CAPS THIOTHIXENE Inactive DOXEPIN HCL 10 MG ORAL CAPSULE Take 1 tablet by mouth daily DOXEPIN HCL 10 MG ORAL CAPSULE 2505047 DOXEPIN HCL Inactive HYDROCODONE-ACETAMINOPHEN 7.5-325 MG ORAL TABLET 1 four times a day as needed for pain HYDROCODONE-ACETAMINOPHEN 7.5-325 MG ORAL TABLET 262883 HYDROCODONE-ACETAMINOPHEN Inactive NIACIN ER 500 MG ORAL [...] hr. PRN ACETAMINOPHEN 500 MG ORAL TABLET 129050 ACETAMINOPHEN Inactive SAPHRIS 5 MG SUBLINGUAL TABLET SUBLINGUAL by mouth twice a day SAPHRIS 5 MG SUBLINGUAL TABLET SUBLINGUAL ASENAPINE MALEATE Inactive NIACIN ER 500 MG ORAL TABLET EXTENDED RELEASE 4 qHS (for triglycerides) 01/13 NIACIN ER 500 MG ORAL TABLET EXTENDED RELEASE NIACIN Inactive IBUPROFEN 200 MG ORAL TABLET 1 Q 6 hr. PRN IBUPROFEN 200 MG ORAL TABLET 944221 IBUPROFEN Inactive FLUTICASONE PROPIONATE 50 MCG/ACT NASAL SUSPENSION 2 sprays each nostril qDay x 30 days FLUTICASONE PROPIONATE 50 MCG/ACT NASAL SUSPENSION 6770773 FLUTICASONE PROPIONATE Inactive EQL TRUETEST TEST IN [...] at HS ZYPREXA 7.5 MG ORAL TABLET 002702 OLANZAPINE Inactive THIOTHIXENE 5 MG ORAL CAPSULE by mouth twice a day THIOTHIXENE 5 MG ORAL CAPSULE 908643 THIOTHIXENE Inactive UROXATRAL 10 MG ORAL TABLET EXTENDED RELEASE 24 HOUR Take 1 tablet by mouth daily UROXATRAL 10 MG ORAL TABLET EXTENDED RELEASE 24 HOUR ALFUZOSIN HCL Inactive ACYCLOVIR 400 MG ORAL TABLET 1 pill three times daily x 5 days, for cold sore outbreak ACYCLOVIR 400 MG ORAL TABLET 123884 ACYCLOVIR Inactive TRUETEST TEST IN VITRO STRIP check sugars 4x/day TRUETEST TEST IN VITRO STRIP GLUCOSE BLOOD Inactive HUMALOG 100 UNIT/ML SUBCUTANEOUS SOLUTION Take 20 units with breakfast, 10u with lunch and suppetr. HUMALOG 100 UNIT/ML SUBCUTANEOUS SOLUTION INSULIN LISPRO (HUMAN) Inactive CYCLOBENZAPRINE HCL 10 MG ORAL TABLET 1 tablet by mouth three times daily, scheduled CYCLOBENZAPRINE HCL 10 MG ORAL TABLET 324763 CYCLOBENZAPRINE HCL Inactive ACCU-CHEK ROSA IN VITRO STRIP use strips with device to check blood sugars 3 times daily ACCU-CHEK ROSA IN VITRO STRIP GLUCOSE BLOOD Inactive ACCU-CHEK ROSA DEVICE Use device to check blood sugars ACCU-CHEK ROSA DEVICE BLOOD GLUCOSE MONITORING SUPPL Inactive FLUVOXAMINE MALEATE 100 MG ORAL TABLET Take 1/2 tab at noon 03/04 FLUVOXAMINE MALEATE 100 MG ORAL TABLET 348560 FLUVOXAMINE MALEATE Inactive FLUVOXAMINE MALEATE 100 MG ORAL TABLET Take one (1) tablet by mouth am, 1/2 at noon FLUVOXAMINE MALEATE 100 MG ORAL TABLET 999170 FLUVOXAMINE MALEATE Inactive BACTROBAN 2 % EXTERNAL CREAM Apply to affected area BID for up to 10 days BACTROBAN 2 % EXTERNAL CREAM 328369 MUPIROCIN CALCIUM Inactive NOVOFINE 32G X 6 MM use one four times per day NOVOFINE 32G X 6 MM INSULIN PEN NEEDLE Inactive TRAZODONE HCL 100 MG ORAL TABLET 1 tab by mouth for sleep TRAZODONE HCL 100 MG ORAL TABLET 140563 TRAZODONE HCL Inactive LOVAZA 1 GM ORAL CAPSULE 4 daily (for triglycerides) LOVAZA 1 GM ORAL CAPSULE 779224 [id number] ETHYL ESTERS Inactive METFORMIN HCL ER 500 [...] bladder TOLTERODINE TARTRATE 2 MG ORAL TABLET 188362 TOLTERODINE TARTRATE Inactive COLACE 100 MG ORAL CAPSULE 1 pill by mouth twice daily, for constipation 2014 COLACE 100 MG ORAL CAPSULE 7955143 DOCUSATE SODIUM Inactive LOMOTIL 2.5-0.025 MG ORAL TABLET take 1-2 tabs PO after each stool, no more than 8 in 24 hours LOMOTIL 2.5-0.025 MG ORAL TABLET 7487375 DIPHENOXYLATE-ATROPINE Inactive ZOFRAN 4 MG ORAL TABLET 1 po q4hr PRN Nausea ZOFRAN 4 MG ORAL TABLET 963439 ONDANSETRON HCL Inactive HYDROCODONE-ACETAMINOPHEN 5-325 MG ORAL TABLET 2 tabs by mouth three times daily for pain HYDROCODONE-ACETAMINOPHEN 5-325 MG ORAL TABLET 120665 HYDROCODONE-ACETAMINOPHEN Inactive ZOLPIDEM TARTRATE 10 MG ORAL TABLET take at bedtime ZOLPIDEM TARTRATE 10 MG ORAL TABLET 433354 ZOLPIDEM TARTRATE Inactive LISINOPRIL 20 MG ORAL TABLET 1 BID LISINOPRIL 20 MG ORAL TABLET 564744 LISINOPRIL Inactive TRAVATAN Z 0.004 % OPHTHALMIC SOLUTION 1 gtt each eye daily TRAVATAN Z 0.004 % OPHTHALMIC SOLUTION TRAVOPROST Inactive LATUDA 60 MG ORAL TABLET Take one by mouth daily LATUDA 60 MG ORAL TABLET LURASIDONE HCL Inactive FLUVOXAMINE MALEATE 50 MG ORAL TABLET 1 tab by mouth daily 04/01 FLUVOXAMINE MALEATE 50 MG ORAL TABLET 246919 FLUVOXAMINE MALEATE Inactive LEVEMIR FLEXTOUCH 100 UNIT/ML [...] 30G 3 a day TRUEPLUS LANCETS 30G [id number] LANCETS Inactive AMITIZA 24 MCG ORAL CAPSULE [...] noon FLUVOXAMINE MALEATE 100 MG ORAL TABLET 929992 FLUVOXAMINE MALEATE Inactive FLONASE ALLERGY RELIEF 50 MCG/ACT NASAL SUSPENSION One spray each nostril BID x 1 week then daily FLONASE ALLERGY RELIEF 50 MCG/ACT NASAL SUSPENSION [id number] FLUTICASONE PROPIONATE Inactive IMODIUM A-D 2 MG ORAL TABLET 1 tab QID as needed IMODIUM A-D 2 MG ORAL TABLET 343183 LOPERAMIDE HCL Inactive MYLANTA GAS RELIEF MAXIMUM STR 125 MG ORAL CAPSULE 30cc every 4 hours prn MYLANTA GAS RELIEF MAXIMUM STR 125 MG ORAL CAPSULE SIMETHICONE Inactive TRUEPLUS LANCETS 30G 3x a day TRUEPLUS LANCETS 30G [id number] LANCETS Inactive TRUE METRIX BLOOD GLUCOSE TEST [...] headaches TRAZODONE HCL 100 MG ORAL TABLET 457451 TRAZODONE HCL Inactive TYLENOL 8 HOUR 650 [...] evening TAMSULOSIN HCL 0.4 MG ORAL CAPSULE 668429 TAMSULOSIN HCL Inactive [facility] MELATONIN 3 MG ORAL TABLET give 1 tab by mouth at HS [facility] MELATONIN 3 MG ORAL TABLET 992418 MELATONIN Inactive SEROQUEL 100 MG ORAL TABLET 1 tab daily SEROQUEL 100 MG ORAL TABLET 156204 QUETIAPINE FUMARATE Inactive AMARYL 2 MG ORAL TABLET give 2.5 tabs PO daily AMARYL 2 MG ORAL TABLET 116077 GLIMEPIRIDE Inactive SEROQUEL 25 MG ORAL TABLET Take two tabs by mouth in the morning, take 4 tablets at night SEROQUEL 25 MG ORAL TABLET 993229 QUETIAPINE FUMARATE Inactive QUETIAPINE FUMARATE 25 MG ORAL TABLET 2 tabs BID QUETIAPINE FUMARATE 25 MG ORAL TABLET 436695 QUETIAPINE FUMARATE Inactive QUETIAPINE FUMARATE 100 MG ORAL TABLET 1 tab PO at HS QUETIAPINE FUMARATE 100 MG ORAL TABLET 208021 QUETIAPINE FUMARATE Inactive LATUDA 40 MG ORAL TABLET 1.5 tab by mouth in the afternoon 05/23 LATUDA 40 MG ORAL TABLET LURASIDONE HCL Inactive TOPAMAX 25 MG ORAL TABLET 1 tab BID PRN TOPAMAX 25 MG ORAL TABLET 759048 TOPIRAMATE Inactive EFFEXOR XR 150 MG ORAL CAPSULE EXTENDED RELEASE 24 HOUR 1 tab daily EFFEXOR XR 150 MG ORAL CAPSULE EXTENDED RELEASE 24 HOUR VENLAFAXINE HCL Inactive VERAPAMIL HCL ER 180 MG ORAL TABLET EXTENDED RELEASE 1 pill by mouth twice daily, for migraine prevention VERAPAMIL HCL ER 180 MG ORAL TABLET EXTENDED RELEASE VERAPAMIL HCL Inactive CEFDINIR 300 MG ORAL CAPSULE by mouth twice a day CEFDINIR 300 MG ORAL CAPSULE 783914 CEFDINIR Inactive AZITHROMYCIN 500 MG INTRAVENOUS SOLUTION RECONSTITUTED 1 po q day AZITHROMYCIN 500 MG INTRAVENOUS SOLUTION RECONSTITUTED [id number] AZITHROMYCIN Inactive AMOXICILLIN 500 MG ORAL CAPSULE 2 po BID x 10 days AMOXICILLIN 500 MG ORAL CAPSULE 591096 AMOXICILLIN Inactive PENICILLIN V POTASSIUM 500 MG ORAL TABLET 1 pill by mouth three times daily PENICILLIN V POTASSIUM 500 MG ORAL TABLET 238862 PENICILLIN V POTASSIUM Inactive KEFLEX 500 MG ORAL CAPSULE 1 po BID x 7 days KEFLEX 500 MG ORAL CAPSULE 385888 CEPHALEXIN Inactive Immunizations Vaccine Administration Date Value [...] Fluvirin, Fluarix, Agriflu(>=18 yo)) Fluzone (>3 yrs.) [[id number]] Influenza, seasonal, injectable pneumococcal immunization administered Pneumovax [...] ... - Chemistry sodium, serum 135 mmol/L 148-952 5201/08/22 carbon dioxide, venous blood 28.4 mmol/L 21.0-32.0 [...] mg/g {creat} 0-29 cholesterol, serum 263 mg/dL 578-419 1888/08/22 triglyceride, serum, fasting 1312 mg/dL 30-200 HDL [...] 80 mg/L 0-19 Office Visit: [facility] - Lab PSA (prostate specific antigent), recommendation and action PSA ordered Encounters Code Encounter Date Provider Facility CPT-12856 [id number] Vst-Est Level IV 15:10:01 SALES REPRESENTATIVE TRAINEE Mason Loredo MD [facility] CPT-77022 [id number] Vst-Est Level III 11:00:25 CDT Shavonne Feliciano PA-C [facility] CPT-83560 Level 3 Est. Patient 09:12:14 SALES REPRESENTATIVE TRAINEE Mima Erazo [facility] CPT-85845 Level 3 Est. Patient 16:52:51 CDT Vanessa Hickey MD [facility] CPT-81322 Level 3 Est. Patient 17:40:16 CDT Mima Erazo [facility] CPT-82880 Level 3 Est. Patient 14:34:52 CDT Vanessa Hickey MD [facility] CPT-99945 Level 3 Est. Patient 16:27:51 CDT Mima Erazo [facility] CPT-06477 Level 3 Est. Patient 14:39:00 SALES REPRESENTATIVE TRAINEE Vanessa Hickey MD [facility]-80025 Level 2 Est. Patient 18:43:34 CDT Mima Erazo [facility] CPT-52236 Level 3 Est. Patient 16:22:09 CDT Cherelle Avila [facility] CPT-93191 Level 4 Est. Patient 17:55:14 CDT Mima Erazo [facility] CPT-07316 Level 2 Est. Patient 17:13:21 CDT Alina Castaneda MD [facility]-98570 Level 3 Est. Patient 14:46:15 CDT Vanessa Hickey MD [facility]-54132 Level 3 Est. Patient 09:34:56 CDT Alina Castaneda MD [facility]-36167 Level 3 Est. Patient 21:40:19 CDT Mima Erazo [facility]-73634 Level 3 Est. Patient 09:26:40 CDT Brook[place]ivia Araceli [facility]-89038 Level 3 Est. Patient 12:36:43 CDT Vanessa Hickey MD [facility]-36352 Level 3 Est. Patient 12:57:49 CDT Vanessa Hickey MD [facility]-30567 Level 3 Est. Patient 00:28:25 CDT Alina Castaneda MD [facility]71890 Level 2 Est. Patient 12:52:14 CDT Alina Castaneda MD PhD [facility]-57610 Level 3 Est. Patient 11:51:18 SALES REPRESENTATIVE TRAINEE Alina Castaneda MD [facility]-29601 Level 3 Est. Patient 10:09:22 SALES REPRESENTATIVE TRAINEE Alina Castaneda MD [facility]-74390 Level 3 Est. Patient 14:36:26 SALES REPRESENTATIVE TRAINEE Marvel Charles [facility]-52081 Level 3 Est. Patient 13:34:47 SALES REPRESENTATIVE TRAINEE Alina Castaneda MD [facility]57555 Level 3 Est. Patient 19:52:08 SALES REPRESENTATIVE TRAINEE Alina Castaneda MD [facility] [place]41701 Level 3 Est. Patient 10:01:51 SALES REPRESENTATIVE TRAINEE Brooksjohn [facility]-38804 Level 3 Est. Patient 21:54:06 CDT Vanessa Hickey MD [facility]-44243 Level 3 Est. Patient 08:54:46 CDT Alina Castaneda MD [facility]-63805 Level 3 Est. Patient 09:32:11 CDT Marvel [facility]-34359 Level 3 Est. Patient 12:02:49 CDT Alina Castaneda MD [facility]-31437 Level 3 Est. Patient 19:17:33 CDT Alina Castaneda MD [facility]-67510 Level 3 Est. Patient 13:19:10 CDT Marvel [facility]-27527 Level 3 Est. Patient 08:20:05 CDT Alina Castaneda MD [facility]-46198 Level 3 Est. Patient 15:17:18 CDT Alina Castaneda MD [facility] [place]64673 Level 3 Est. Patient 14:25:36 SALES REPRESENTATIVE TRAINEE Marvel [facility]-57250 Level 3 Est. Patient 10:09:15 SALES REPRESENTATIVE TRAINEE Marvel Araceli [facility] CPT-46959 Level 3 Est. Patient 21:28:43 CDT Alina Castaneda MD [facility]-80668 Level 3 Est. Patient 15:20:11 [facility]T [facility]237 Level 4 Est. Patient 19:08:12 CDT Alina Castaneda MD [facility]-47669 Level 3 Est. Patient 15:06:39 CDT [facility] Gurdeepajayestela [facility]-05619 Level 4 Est. Patient 17:48:15 CDT Alina Castaneda MD [facility]-81845 Level 3 Est. Patient 14:53:49 CDT Alina Castaneda MD [facility]-11251 Level 3 Est. Patient 09:35:16 CDT Alina Castaneda MD [facility]-17494 Level 3 Est. Patient 12:23:22 CDT Alina Castaneda MD [facility]-39002 Level 3 Est. Patient 16:19:15 CDT Alina Castaneda MD [facility]-75683 Level 3 Est. Patient 21:39:56 SALES REPRESENTATIVE TRAINEE Alina Castaneda MD [facility]-85736 Level 4 Est. Patient 14:12:56 SALES REPRESENTATIVE TRAINEE Alina Castaneda MD [facility]-62278 Level 2 Est. Patient 15:34:57 SALES REPRESENTATIVE TRAINEE Alina Castaneda MD [facility]-42040 Level 3 Est. Patient 12:17:04 SALES REPRESENTATIVE TRAINEE Alina Castaneda MD [facility]-54966 Level 3 Est. Patient 09:18:18 SALES REPRESENTATIVE TRAINEE Brooksjohn [facility]-21888 Level 2 Est. Patient 21:50:24 CDT Alina Castaneda MD [facility]-02252 Level 3 Est. Patient 09:17:28 CDT Marvel [facility]-56647 Level 4 Est. Patient 18:54:02 CDT Alina Castaneda MD [facility] [place]48055 Level 3 Est. Patient 10:47:10 CDT Alina Castaneda MD [facility] [place]89443 Level 3 Est. Patient 09:22:20 CDT Marvel [facility]-90443 Level 3 Est. Patient 16:39:43 CDT [facility]-68296 Level 3 Est. Patient 16:05:16 CDT Alina Catsaneda MD [facility]-02385 Level 3 Est. Patient 00:29:15 CDT Alina Castaneda MD [facility]-34379 Level 3 Est. Patient 10:49:22 SALES REPRESENTATIVE TRAINEE Marvel [facility]-56446 Level 3 Est. Patient 21:30:19 SALES REPRESENTATIVE TRAINEE Alina Castaneda MD [facility]-54127 Level 4 Est. Patient 17:04:11 SALES REPRESENTATIVE TRAINEE Marvel [facility]-57025 Level 3 Est. Patient 15:34:11 SALES REPRESENTATIVE TRAINEE Marvel [facility]-51800 Level 2 Est. Patient 12:51:58 SALES REPRESENTATIVE TRAINEE Alina Castaneda MD [facility] [place]00219 Level 3 Est. Patient 13:20:01 SALES REPRESENTATIVE TRAINEE Alina Castaneda MD PhD [facility] CPT-83349 Level 3 Est. Patient 09:23:35 CDT Alina Castaneda MD PhD [facility] Procedures Code Procedure Name Date Entry Date Standard Description CPT-G0439 [facility] Annual Wellness Exam 15:49:52 SALES REPRESENTATIVE TRAINEE CPT-66737 Level 3 Residential 13:20:19 CDT CPT-TCMM Transitional Care Mgmt-Moderate 12:32:19 CDT CPT-35772 Level 2 Residential 09:01:11 CDT CPT-60426 HGBA1C - LAB USE ONLY 09:30:27 SALES REPRESENTATIVE TRAINEE CPT-07370 BMP - LAB USE ONLY 09:30:27 SALES REPRESENTATIVE TRAINEE CPT-69137 Venipuncture Draw Fee 09:30:26 SALES REPRESENTATIVE TRAINEE CPT-TCMM Transitional Care Mgmt-Moderate 10:25:31 CDT CPT-52156 Bladder Scan 14:34:53 CDT CPT-03461 Bladder Scan 14:39:01 SALES REPRESENTATIVE TRAINEE CPT-TCMM Transitional Care Mgmt-Moderate 10:30:19 SALES REPRESENTATIVE TRAINEE CPT-62281 Bladder Scan 12:36:44 CDT CPT-40260 Bladder Scan 21:54:06 CDT CPT-G0008 Administration of Influenza Virus Vaccine 13:05:26 CDT CPT-77180 Fluzone Quadrivalent Intramuscular Suspension 0.5 ML 13: 05:26 CDT CPT-18868 Administration single or combination vaccine inc oral 11 :49:51 CDT CPT-84581 Pneumovax 11:49:51 CDT CPT-39453 Ribs unilateral 2V 12:37:22 SALES REPRESENTATIVE TRAINEE CPT-62325 Chest 2V Frontal and Lat 17:15:26 CDT CPT-54921 Abx/Therapy Injection 18:54:02 CDT CPT-J0696 Rocephin 1000 mg (Ceftriaxone) 16:00:32 CDT CPT-08772 Chest 2V Frontal and Lat 15:26:45 CDT CPT-45263 Chest 2V Frontal and Lat 10:23:27 CDT CPT-44826 Venipuncture Draw Fee 10:11:00 CDT CPT-49017 Administration single or combination vaccine inc oral 11 :56:38 CDT CPT-15585 Influenza split virus > age 3 11:56:38 CDT CPT-52647 Venipuncture Draw Fee 08:49:54 SALES REPRESENTATIVE TRAINEE CPT-67845 EKG Trac and Interp 17:54:19 SALES REPRESENTATIVE TRAINEE
--- OUTSIDE RECORDS SUMMARY | 2018-07-02 15:06 | XMS REPORT | Clinical Summary ---
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 Benign paroxysmal positional vertigo High-risk sexual behavior [...] ANXIETY DISORDER ICD-300.00 Inactive Shavonne Feliciano PA-C HYPERTENSION ICD-401.9 Inactive Alina Castaneda MD PhD [...] PROSTATE ICD-V76.44 Inactive Alina Castaneda MD PhD SKIN LESION ICD-709.9 Inactive Alina Castaneda MD PhD DIABETES, TYPE 2 ICD-250.00 Inactive Alina Castaneda MD PhD Confusion ICD-298.9 [...] Body Mass Index 31.0-31.9 Adult Inactive Gabrielle Mraquez MA Body Mass Index 30.0-30.9 Adult Inactive Paige Lange MA Hypoglycemia ICD-251.2 Inactive Alina Castaneda MD PhD Dizziness ICD-780.4 Inactive Alina Castaneda MD PhD Medication List Medication Instructions Start Date Stop Date Generic Name NDC Status Provider Patient Instruction AMBIEN 10 MG ORAL TABLET 1 at night as needed for sleep ZOLPIDEM TARTRATE 94796722623 Active Mason Loredo MD Active VERAPAMIL HCL ER 180 MG ORAL TABLET EXTENDED RELEASE 1 pill by mouth twice daily, for migraine prevention VERAPAMIL HCL 80634901671 No Longer Active Mason Loredo MD Active EFFEXOR XR 150 MG ORAL CAPSULE EXTENDED RELEASE 24 HOUR 1 tab daily VENLAFAXINE HCL 11224549338 No Longer Active Mason Loredo MD Active VENLAFAXINE HCL ER 150 MG ORAL CAPSULE EXTENDED RELEASE 24 HOUR 1 tablet 2 times a day VENLAFAXINE HCL 92869144829 Active Mason Loredo MD Active TOPAMAX 25 MG ORAL TABLET 1 tab BID PRN TOPIRAMATE 07766542189 No Longer Active Mason Loredo MD Active LATUDA 40 MG ORAL TABLET 1.5 tab by mouth in the afternoon 05/23 LURASIDONE HCL 96271380695 No Longer Active Mason Loredo MD Active QUETIAPINE FUMARATE 100 MG ORAL TABLET 1 tab PO at HS QUETIAPINE FUMARATE 73787409834 No Longer Active Mason Loredo MD Active QUETIAPINE FUMARATE 25 MG ORAL TABLET 2 tabs BID QUETIAPINE FUMARATE 18936128487 No Longer Active Mason Loredo MD Active ATORVASTATIN CALCIUM 10 MG ORAL TABLET Take 1 tablet by mouth daily. Recheck labs in 3 months ATORVASTATIN CALCIUM 99354533112 Active Mya Ledezma MA Active VERAPAMIL HCL ER 180 MG ORAL TABLET EXTENDED RELEASE 1 tab BID VERAPAMIL HCL 21886620166 Active Shavonne Feliciano PA-C Active SEROQUEL 25 MG ORAL TABLET Take two tabs by mouth in the morning, take 4 tablets at night QUETIAPINE FUMARATE 90906037343 No Longer Active Shavonne Feliciano PA-C Active AMARYL 2 MG ORAL TABLET give 2.5 tabs PO daily GLIMEPIRIDE 60062262215 No Longer Active Shavonne Feliciano PA-C Active AMARYL 2 MG ORAL TABLET give 2 tabs PO in the morning GLIMEPIRIDE 34468990932 Active Shavonne Feliciano PA-C Active FENOFIBRATE 145 MG ORAL TABLET 1 tab PO in the morning FENOFIBRATE 93666947076 Active Shavonne Feliciano PA-C Active SEROQUEL 100 MG ORAL TABLET 1 tab daily QUETIAPINE FUMARATE 61706894010 No Longer Active Shavonne Feliciano PA-C Active [facility] MELATONIN 3 MG ORAL TABLET give 1 tab by mouth at HS MELATONIN 69756207011 No Longer Active Gabrielle Marquez MA Active NOVOLOG FLEXPEN 100 UNIT/ML SUBCUTANEOUS SOLUTION PEN-INJECTOR sliding scale INSULIN ASPART 32371837084 Active Gabrielle Marquez MA Active METFORMIN HCL 1000 MG ORAL TABLET 1 tab by mouth BID METFORMIN HCL 46790839003 Active Gabrielle Marquez MA Active [facility] MELATONIN 3 MG ORAL TABLET 1 tab nightly MELATONIN 03115700885 Active Gabrielle Marquez MA Active TAMSULOSIN HCL 0.4 MG ORAL CAPSULE give 2 capsules PO each evening TAMSULOSIN HCL 02374888163 No Longer Active Gabrielle Marquez MA Active VITAMIN D 2000 UNIT ORAL CAPSULE Take one by mouth daily CHOLECALCIFEROL 91426428296 No Longer Active Gabrielle Marquez MA Active LEVEMIR 100 UNIT/ML SUBCUTANEOUS SOLUTION 10 u at bedtime INSULIN DETEMIR 47530603785 Active Gabrielle Marquez MA Active TAMSULOSIN HCL 0.4 MG ORAL CAPSULE 2 every night for urine flow TAMSULOSIN HCL 13269144330 Active Gabrielle Marquez MA Active DIVALPROEX SODIUM 125 MG ORAL TABLET DELAYED RELEASE 1 tab each morning 02/17 DIVALPROEX SODIUM 48250517212 Active Gabrielle Marquez MA Active D 1000 TABLET 2 tab by mouth BID CHOLECALCIFEROL TABS 94440530616 Active Gabrielle Marquez MA Active ALIGN 4 MG ORAL CAPSULE 1 tab at hs PROBIOTIC PRODUCT 25912063538 Active Gabrielle Marquez MA Active CLONAZEPAM 1 MG ORAL TABLET 1 pill by mouth two times daily CLONAZEPAM 06463227584 Active Gabrielle Marquez MA Active OCEAN NASAL SPRAY SOLUTION 2 sprays in both nostrils every 8 hours as needed for dry mucous membranes SALINE SOLN 12427809500 Active Mason Loredo MD Active BETHANECHOL CHLORIDE 25 MG ORAL TABLET Take 1 tablet mouth four times a day BETHANECHOL CHLORIDE 69869060026 Active Mason Loredo MD Active [facility] LUBRICANT EYE DROPS 0.4-0.3 % OPHTHALMIC SOLUTION POLYETHYL GLYCOL-PROPYL GLYCOL 69409808612 No Longer Active Mason Loredo MD Active TYLENOL 8 HOUR 650 MG ORAL TABLET EXTENDED RELEASE 1 tab QID prn ACETAMINOPHEN 75276860366 No Longer Active Mason Loredo MD Active TIMOPTIC OCUDOSE 0.5 % OPHTHALMIC SOLUTION instill one drop into both eyes q12H TIMOLOL MALEATE 13187900047 Active Mason Loredo MD Active TRAZODONE HCL 100 MG ORAL TABLET 1 every night to prevent headaches TRAZODONE HCL 28266109485 No Longer Active Mason Loredo MD Active TRAVATAN Z 0.004 % OPHTHALMIC SOLUTION 1 drop each eye daily 2017 TRAVOPROST 24997412451 No Longer Active Mason Loredo MD Active LATUDA 60 MG ORAL TABLET 1 tab daily LURASIDONE HCL 99508970824 No Longer Active Mason Loredo MD Active MORPHINE SULFATE ER 30 MG ORAL TABLET EXTENDED RELEASE Take one capsule BID MORPHINE SULFATE 37335835919 No Longer Active Mason Loredo MD Active TRUE METRIX BLOOD GLUCOSE TEST IN VITRO STRIP Check blood sugars 3x/day. 2015 GLUCOSE BLOOD 11082602561 No Longer Active Mason Loredo MD Active TRUEPLUS LANCETS 30G 3x a day LANCETS 37753722296 No Longer Active Mason Loredo MD Active MYLANTA GAS RELIEF MAXIMUM STR 125 MG ORAL CAPSULE 30cc every 4 hours prn SIMETHICONE 32746433168 No Longer Active Mason Loredo MD Active IMODIUM A-D 2 MG ORAL TABLET 1 tab QID as needed LOPERAMIDE HCL 12823059157 No Longer Active Mason Loredo MD Active FLONASE ALLERGY RELIEF 50 MCG/ACT NASAL SUSPENSION One spray each nostril BID x 1 week then daily FLUTICASONE PROPIONATE 43881797077 No Longer Active Mason Loredo MD Active FLUVOXAMINE MALEATE 100 MG ORAL TABLET take one tab every AM et HS, and take 1 /2 tab at noon FLUVOXAMINE MALEATE 55489613652 No Longer Active Mason Loredo MD Active BD PEN NEEDLE MINI U/F 31G X 5 MM 4 a day INSULIN PEN NEEDLE 15473776862 No Longer Active Mason Loredo MD Active AMITIZA 24 MCG ORAL CAPSULE Take one capsule BID for constipation LUBIPROSTONE 94483563283 No Longer Active Mason Loredo MD Active TRUEPLUS LANCETS 30G 3 a day LANCETS 81037223986 No Longer Active Mason Loredo MD Active CORICIDIN HBP CONGESTION/COUGH 10-200 MG ORAL CAPSULE Take as directed on box as needed for cold/flu symptoms DEXTROMETHORPHAN- GUAIFENESIN 11120425203 No Longer Active Mason Loredo MD Active OMEGA-3 300 MG ORAL CAPSULE 4 caps by mouth daily OMEGA-3 FATTY ACIDS 01792929365 No Longer Active Mason Loredo MD Active HUMALOG KWIKPEN 100 UNIT/ML SUBCUTANEOUS SOLUTION PEN-INJECTOR sliding scale if needed INSULIN LISPRO (HUMAN) 22955163071 No Longer Active Mason Loredo MD Active TRUETEST TEST IN VITRO STRIP check blood sugars 3x/day GLUCOSE BLOOD 63778471478 No Longer Active Mason Loredo MD Active ALFUZOSIN HCL ER 10 MG ORAL TABLET EXTENDED RELEASE 24 HOUR 1 tablet daily ALFUZOSIN HCL 92000009822 No Longer Active Mason Loredo MD Active BD INSULIN SYRINGE 28G X 1/2" 1 ML 1 four times per day INSULIN SYRINGE-NEEDLE U-100 04740038928 No Longer Active Mason Loredo MD Active LEVEMIR FLEXTOUCH 100 UNIT/ML SUBCUTANEOUS SOLUTION PEN-INJECTOR 60 units SQ each evening, for diabetes INSULIN DETEMIR 42291147230 No Longer Active Mason Loredo MD Active LACTULOSE 20 GM/30ML ORAL SOLUTION give 30 Ml PO BID PRN LACTULOSE 37012327867 Active Mason Loredo MD Active COLACE 100 MG ORAL CAPSULE 1 tab BID PRN DOCUSATE SODIUM 13627908932 Active Mason Loredo MD Active LATANOPROST 0.005 % OPHTHALMIC SOLUTION instill 1 drop in both eyes at bed time LATANOPROST 89066371822 Active Mason Loredo MD Active MIRALAX ORAL POWDER 17g by mouth q12h, for constipation POLYETHYLENE GLYCOL 3350 20871999452 Active Mason Loredo MD Active IBUPROFEN 400 MG ORAL TABLET 1 tab Q6H PRN IBUPROFEN 90442740132 Active Mason Loredo MD Active FLUVOXAMINE MALEATE 50 MG ORAL TABLET 1 tab by mouth daily 04/01 FLUVOXAMINE MALEATE 53484995247 No Longer Active Mima Erazo APRN Active TRUE METRIX METER w/Device KIT Check blood sugars 3x/day BLOOD GLUCOSE MONITORING SUPPL 09063542827 Active Marvel MARROQUIN Active LATUDA 60 MG ORAL TABLET Take one by mouth daily LURASIDONE HCL 56941989988 No Longer Active Mima Erazo APRN Active [facility] MILK OF MAGNESIA 400 MG/5ML ORAL SUSPENSION 30ml by mouth bid prn MAGNESIUM HYDROXIDE 83421921539 Active Mason Loredo MD Active TRAVATAN Z 0.004 % OPHTHALMIC SOLUTION 1 gtt each eye daily TRAVOPROST 07262392678 No Longer Active Mason Loredo MD Active LISINOPRIL 20 MG ORAL TABLET 1 BID LISINOPRIL 92255314477 No Longer Active Mason Loredo MD Active ZOLPIDEM TARTRATE 10 MG ORAL TABLET take at bedtime ZOLPIDEM TARTRATE 97065158006 No Longer Active Mason Loredo MD Active HYDROCODONE-ACETAMINOPHEN 5-325 MG ORAL TABLET 2 tabs by mouth three times daily for pain HYDROCODONE-ACETAMINOPHEN 91986936662 No Longer Active Mason Loredo MD Active ZOFRAN 4 MG ORAL TABLET 1 po q4hr PRN Nausea ONDANSETRON HCL 86256661548 No Longer Active Mason Loredo MD Active LOMOTIL 2.5-0.025 MG ORAL TABLET take 1-2 tabs PO after each stool, no more than 8 in 24 hours DIPHENOXYLATE-ATROPINE 98627736453 No Longer Active Mason Loredo MD Active COLACE 100 MG ORAL CAPSULE 1 pill by mouth twice daily, for constipation 2014 DOCUSATE SODIUM 71996156653 No Longer Active Mima Erazo APRN Active TOLTERODINE TARTRATE 2 MG ORAL TABLET 1 pill twice daily, for bladder TOLTERODINE TARTRATE 89223896382 No Longer Active Vanessa Hickey MD Active AMITIZA 24 MCG ORAL CAPSULE Take one capsule BID for constipation. LUBIPROSTONE 33319888757 No Longer Active Vanessa Hickey MD Active METOPROLOL SUCCINATE ER 100 MG ORAL TABLET EXTENDED RELEASE 24 HOUR 1 by mouth daily for blood pressure METOPROLOL SUCCINATE 89938533950 No Longer Active Grace ROJAS Active METFORMIN HCL ER 500 MG ORAL TABLET EXTENDED RELEASE 24 HOUR Take three tablets by mouth everyday METFORMIN HCL 27967277541 No Longer Active Grace Azam RMA Active LOVAZA 1 GM ORAL CAPSULE 4 daily (for triglycerides) [id number] ETHYL ESTERS 80683304946 No Longer Active Grace Azam RMA Active TRAZODONE HCL 100 MG ORAL TABLET 1 tab by mouth for sleep TRAZODONE HCL 54650837896 No Longer Active Grace Azam RMA Active NOVOFINE 32G X 6 MM use one four times per day INSULIN PEN NEEDLE 65219299028 No Longer Active Grace Azam RMA Active BACTROBAN 2 % EXTERNAL CREAM Apply to affected area BID for up to 10 days MUPIROCIN CALCIUM 85993368828 No Longer Active Grace Azam RMA Active KEFLEX 500 MG ORAL CAPSULE 1 po BID x 7 days CEPHALEXIN 19824741262 No Longer Active Cherelle Avila APRN Active FLUVOXAMINE MALEATE 100 MG ORAL TABLET Take one (1) tablet by mouth am, 1/2 at noon FLUVOXAMINE MALEATE 74867949430 No Longer Active Mima Erazo APRN Active FLUVOXAMINE MALEATE 100 MG ORAL TABLET Take 1/2 tab at noon 03/04 FLUVOXAMINE MALEATE 74027024293 No Longer Active Cherelle Avila APRN Active ACCU-CHEK ROSA DEVICE Use device to check blood sugars BLOOD GLUCOSE MONITORING SUPPL 39506696946 No Longer Active Marvel MARROQUIN Active ACCU-CHEK ROSA IN VITRO STRIP use strips with device to check blood sugars 3 times daily GLUCOSE BLOOD 59794073576 No Longer Active Marvel MARROQUIN Active CYCLOBENZAPRINE HCL 10 MG ORAL TABLET 1 tablet by mouth three times daily, scheduled CYCLOBENZAPRINE HCL 14954268521 No Longer Active Alina Castaneda MD PhD Active HUMALOG 100 UNIT/ML SUBCUTANEOUS SOLUTION Take 20 units with breakfast, 10u with lunch and suppetr. INSULIN LISPRO (HUMAN) 12919902491 No Longer Active Alina Castaneda MD PhD Active TRUETEST TEST IN VITRO STRIP check sugars 4x/day GLUCOSE BLOOD 12797748800 No Longer Active Alina Castaneda MD PhD Active MORPHINE SULFATE 30 MG ORAL TABLET 1 pill by mouth twice daily, for pain 2013 MORPHINE SULFATE 93180292496 No Longer Active Mason Loredo MD Active ACYCLOVIR 400 MG ORAL TABLET 1 pill three times daily x 5 days, for cold sore outbreak ACYCLOVIR 86281576488 No Longer Active Alina Castaneda MD PhD Active PENICILLIN V POTASSIUM 500 MG ORAL TABLET 1 pill by mouth three times daily PENICILLIN V POTASSIUM 33491922293 No Longer Active Alina Castaneda MD PhD Active UROXATRAL 10 MG ORAL TABLET EXTENDED RELEASE 24 HOUR Take 1 tablet by mouth daily ALFUZOSIN HCL 14251753850 No Longer Active Alina Castaneda MD PhD Active THIOTHIXENE 5 MG ORAL CAPSULE by mouth twice a day THIOTHIXENE 50011765203 No Longer Active Alina Castaneda MD PhD Active ZYPREXA 7.5 MG ORAL TABLET 1 at HS OLANZAPINE 99323679869 No Longer Active Alina Castaneda MD PhD Active DETROL LA 4 MG ORAL CAPSULE EXTENDED RELEASE 24 HOUR Take 1 tablet by mouth daily TOLTERODINE TARTRATE 13814656328 No Longer Active Alina Castaneda MD PhD Active TERESE CONTOUR TEST IN VITRO STRIP monitor blood sugars 3x/day GLUCOSE BLOOD 07442789759 No Longer Active Alina Castaneda MD PhD Active EQL TRUETEST TEST IN VITRO STRIP Test blood sugar TID GLUCOSE BLOOD 04703901885 No Longer Active Alina Castaneda MD PhD Active FLUTICASONE PROPIONATE 50 MCG/ACT NASAL SUSPENSION 2 sprays each nostril qDay x 30 days FLUTICASONE PROPIONATE 95433406626 No Longer Active Alina Castaneda MD PhD Active IBUPROFEN 200 MG ORAL TABLET 1 Q 6 hr. PRN IBUPROFEN 65428139046 No Longer Active Alina Castaneda MD PhD Active NIACIN ER 500 MG ORAL TABLET EXTENDED RELEASE 4 qHS (for triglycerides) 01/13 NIACIN 76824451289 No Longer Active Alina Castaneda MD PhD Active SAPHRIS 5 MG SUBLINGUAL TABLET SUBLINGUAL by mouth twice a day ASENAPINE MALEATE 63914580043 No Longer Active Maljohn Mackenzieglestela MENDOZAP Active ACETAMINOPHEN 500 MG ORAL TABLET 2 Q 6 hr. 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 as needed ORPHENADRINE CITRATE 11428115613 No Longer Active Alina Castaneda MD PhD Active NIACIN ER 500 MG ORAL TABLET EXTENDED RELEASE 2 qHS NIACIN 76832380723 No Longer Active Alina Castaneda MD PhD Active AMOXICILLIN 500 MG ORAL CAPSULE 2 po BID x 10 days AMOXICILLIN 86867580328 No Longer Active Alina Castaneda MD PhD Active HYDROCODONE-ACETAMINOPHEN 7.5-325 MG ORAL TABLET 1 four times a day as needed for pain HYDROCODONE-ACETAMINOPHEN 30182265072 No Longer Active Alina Castaneda MD PhD Active DOXEPIN HCL 10 MG ORAL CAPSULE Take 1 tablet by mouth daily DOXEPIN HCL 50809164841 No Longer Active Salina Han [facility] Active NAVANE 10 MG CAPS 1/2 tablet twice a day THIOTHIXENE No Longer Active Salina ROJAS Active CYCLOBENZAPRINE HCL 10 MG ORAL TABLET 1/2 tablet by mouth every 8 hours as needed for muscle spasms CYCLOBENZAPRINE HCL 13699904565 No Longer Active Alina Castaneda MD PhD Active BACTROBAN 2 % EXTERNAL CREAM apply to ear and nose twice daily MUPIROCIN CALCIUM 93236649418 No Longer Active Alina Castaneda MD PhD Active HYDROCODONE-ACETAMINOPHEN 5-325 MG ORAL TABLET take one tablet by mouth every four hours as needed for pain HYDROCODONE-ACETAMINOPHEN 16368017364 No Longer Active Alina Castaneda MD PhD Active ZYPREXA 5 MG ORAL TABLET take one tablet by mouth every evening OLANZAPINE 83666650325 No Longer Active Alian Castaneda MD PhD Active ALBUTEROL SULFATE (2.5 MG/3ML) 0.083% INHALATION NEBULIZATION SOLUTION one vial per nebulizer TID and PRN cough/soa ALBUTEROL SULFATE 80796626072 No Longer Active Alina Castaneda MD PhD Active GUAIFENESIN ER 600 MG ORAL TABLET EXTENDED RELEASE 12 HOUR 1 tablet by mouth twice daily if needed for cough GUAIFENESIN 63065761247 No Longer Active Marvel MARROQUIN Active AZITHROMYCIN 500 MG INTRAVENOUS SOLUTION RECONSTITUTED 1 po q day AZITHROMYCIN 32720895509 No Longer Active Alina Castaneda MD PhD Active PROMETHAZINE-CODEINE 6.25-10 MG/5ML ORAL SYRUP 1 tsp po q 6 hours prn cough PROMETHAZINE-CODEINE 16462430867 No Longer Active Alina Castaneda MD PhD Active CEFDINIR 300 MG ORAL CAPSULE by mouth twice a day CEFDINIR 55173243650 No Longer Active Alina Castaneda MD PhD Active METFORMIN HCL ER 500 MG ORAL TABLET EXTENDED RELEASE 24 HOUR Take 3 tablets by mouth everyday METFORMIN HCL 71218507740 No Longer Active Alina Castaneda MD PhD Active LEVEMIR 100 UNIT/ML SUBCUTANEOUS SOLUTION 90 units SQ qHS INSULIN DETEMIR 51959493981 No Longer Active Marvel MARROQUIN Active TOPROL XL 100 MG ORAL TABLET EXTENDED RELEASE 24 HOUR 1 @ HS METOPROLOL SUCCINATE 11935614001 No Longer Active Marvel MARROQUIN Active ALLOPURINOL 300 MG ORAL TABLET Take one by mouth daily ALLOPURINOL 72498965940 Active 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 ZYPREXA 10 MG ORAL TABLET Take one by mouth daily OLANZAPINE 32647866508 No Longer Active Alina Castaneda MD PhD Active NOVOLOG 100 UNIT/ML SUBCUTANEOUS SOLUTION 40 units with every meal INSULIN ASPART 60891979529 No Longer Active Alina Castaneda MD PhD Active VERAPAMIL HCL ER 120 MG ORAL TABLET EXTENDED RELEASE 1 qPM 09/08 VERAPAMIL HCL 44084207169 No Longer Active Salina Ervinford RMA Active ZYPREXA 15 MG ORAL TABLET Take 1 tablet by mouth daily OLANZAPINE 51934001896 No Longer Active Marvel MARROQUIN Active ALBUTEROL SULFATE (2.5 MG/3ML) 0.083% INHALATION NEBULIZATION SOLUTION 1 neb tid and prn cough ALBUTEROL SULFATE 94771448970 No Longer Active Alina Castaneda MD PhD Active LANTUS 100 UNIT/ML SUBCUTANEOUS SOLUTION 60 units sq q hs INSULIN GLARGINE 35168864137 No Longer Active CRYSTAL Suarez Active ALBUTEROL SULFATE (2.5 MG/3ML) 0.083% INHALATION NEBULIZATION SOLUTION 1 neb tid and prn cough ALBUTEROL SULFATE (2.5 MG/3ML) 0.083% INHALATION NEBULIZATION SOLUTION 409180 ALBUTEROL SULFATE Inactive ZYPREXA 15 MG ORAL TABLET Take 1 tablet by mouth daily ZYPREXA 15 MG ORAL TABLET 953748 OLANZAPINE Inactive VERAPAMIL HCL ER 120 MG ORAL TABLET EXTENDED RELEASE 1 qPM 09/08 VERAPAMIL HCL ER 120 MG ORAL TABLET EXTENDED RELEASE VERAPAMIL HCL Inactive ZYPREXA 10 MG ORAL TABLET Take one by mouth daily ZYPREXA 10 MG ORAL TABLET 662466 OLANZAPINE Inactive TOPROL XL 100 MG ORAL TABLET EXTENDED RELEASE 24 HOUR 1 @ HS TOPROL XL 100 MG ORAL TABLET EXTENDED RELEASE 24 HOUR METOPROLOL SUCCINATE Inactive LEVEMIR 100 UNIT/ML SUBCUTANEOUS SOLUTION 90 units SQ qHS LEVEMIR 100 UNIT/ML SUBCUTANEOUS SOLUTION INSULIN DETEMIR Inactive PROMETHAZINE-CODEINE 6.25-10 MG/5ML ORAL SYRUP 1 tsp po q 6 hours prn cough PROMETHAZINE-CODEINE 6.25-10 MG/5ML ORAL SYRUP 782173 PROMETHAZINE-CODEINE Inactive GUAIFENESIN ER 600 MG ORAL TABLET EXTENDED RELEASE 12 HOUR 1 tablet by mouth twice daily if needed for cough GUAIFENESIN ER 600 MG ORAL TABLET EXTENDED RELEASE 12 HOUR GUAIFENESIN Inactive ALBUTEROL SULFATE (2.5 MG/3ML) 0.083% INHALATION NEBULIZATION SOLUTION one vial per nebulizer TID and PRN cough/soa ALBUTEROL SULFATE (2.5 MG/3ML) 0.083% INHALATION NEBULIZATION SOLUTION 565498 ALBUTEROL SULFATE Inactive ZYPREXA 5 MG ORAL TABLET take one tablet by mouth every evening ZYPREXA 5 MG ORAL TABLET 626573 OLANZAPINE Inactive HYDROCODONE-ACETAMINOPHEN 5-325 MG ORAL TABLET take one tablet by mouth every four hours as needed for pain HYDROCODONE-ACETAMINOPHEN 5-325 MG ORAL TABLET 298610 HYDROCODONE-ACETAMINOPHEN Inactive BACTROBAN 2 % EXTERNAL CREAM apply to ear and nose twice daily BACTROBAN 2 % EXTERNAL CREAM 744571 MUPIROCIN CALCIUM Inactive CYCLOBENZAPRINE HCL 10 MG ORAL TABLET 1/2 tablet by mouth every 8 hours as needed for muscle spasms CYCLOBENZAPRINE HCL 10 MG ORAL TABLET 458362 CYCLOBENZAPRINE HCL Inactive NAVANE 10 MG CAPS 1/2 tablet twice a day NAVANE 10 MG CAPS THIOTHIXENE Inactive DOXEPIN HCL 10 MG ORAL CAPSULE Take 1 tablet by mouth daily DOXEPIN HCL 10 MG ORAL CAPSULE 9276820 DOXEPIN HCL Inactive HYDROCODONE-ACETAMINOPHEN 7.5-325 MG ORAL TABLET 1 four times a day as needed for pain HYDROCODONE-ACETAMINOPHEN 7.5-325 MG ORAL TABLET 792078 HYDROCODONE-ACETAMINOPHEN Inactive NIACIN ER 500 MG ORAL [...] hr. PRN ACETAMINOPHEN 500 MG ORAL TABLET 925560 ACETAMINOPHEN Inactive SAPHRIS 5 MG SUBLINGUAL TABLET SUBLINGUAL by mouth twice a day SAPHRIS 5 MG SUBLINGUAL TABLET SUBLINGUAL ASENAPINE MALEATE Inactive NIACIN ER 500 MG ORAL TABLET EXTENDED RELEASE 4 qHS (for triglycerides) 01/13 NIACIN ER 500 MG ORAL TABLET EXTENDED RELEASE NIACIN Inactive IBUPROFEN 200 MG ORAL TABLET 1 Q 6 hr. PRN IBUPROFEN 200 MG ORAL TABLET 406794 IBUPROFEN Inactive FLUTICASONE PROPIONATE 50 MCG/ACT NASAL SUSPENSION 2 sprays each nostril qDay x 30 days FLUTICASONE PROPIONATE 50 MCG/ACT NASAL SUSPENSION 6174874 FLUTICASONE PROPIONATE Inactive EQL TRUETEST TEST IN [...] at HS ZYPREXA 7.5 MG ORAL TABLET 028011 OLANZAPINE Inactive THIOTHIXENE 5 MG ORAL CAPSULE by mouth twice a day THIOTHIXENE 5 MG ORAL CAPSULE 815575 THIOTHIXENE Inactive UROXATRAL 10 MG ORAL TABLET EXTENDED RELEASE 24 HOUR Take 1 tablet by mouth daily UROXATRAL 10 MG ORAL TABLET EXTENDED RELEASE 24 HOUR ALFUZOSIN HCL Inactive ACYCLOVIR 400 MG ORAL TABLET 1 pill three times daily x 5 days, for cold sore outbreak ACYCLOVIR 400 MG ORAL TABLET 326647 ACYCLOVIR Inactive TRUETEST TEST IN VITRO STRIP check sugars 4x/day TRUETEST TEST IN VITRO STRIP GLUCOSE BLOOD Inactive HUMALOG 100 UNIT/ML SUBCUTANEOUS SOLUTION Take 20 units with breakfast, 10u with lunch and suppetr. HUMALOG 100 UNIT/ML SUBCUTANEOUS SOLUTION INSULIN LISPRO (HUMAN) Inactive CYCLOBENZAPRINE HCL 10 MG ORAL TABLET 1 tablet by mouth three times daily, scheduled CYCLOBENZAPRINE HCL 10 MG ORAL TABLET 433599 CYCLOBENZAPRINE HCL Inactive ACCU-CHEK ROSA IN VITRO STRIP use strips with device to check blood sugars 3 times daily ACCU-CHEK ROSA IN VITRO STRIP GLUCOSE BLOOD Inactive ACCU-CHEK ROSA DEVICE Use device to check blood sugars ACCU-CHEK ROSA DEVICE BLOOD GLUCOSE MONITORING SUPPL Inactive FLUVOXAMINE MALEATE 100 MG ORAL TABLET Take 1/2 tab at noon 03/04 FLUVOXAMINE MALEATE 100 MG ORAL TABLET 134932 FLUVOXAMINE MALEATE Inactive FLUVOXAMINE MALEATE 100 MG ORAL TABLET Take one (1) tablet by mouth am, 1/2 at noon FLUVOXAMINE MALEATE 100 MG ORAL TABLET 174576 FLUVOXAMINE MALEATE Inactive BACTROBAN 2 % EXTERNAL CREAM Apply to affected area BID for up to 10 days BACTROBAN 2 % EXTERNAL CREAM 643381 MUPIROCIN CALCIUM Inactive NOVOFINE 32G X 6 MM use one four times per day NOVOFINE 32G X 6 MM INSULIN PEN NEEDLE Inactive TRAZODONE HCL 100 MG ORAL TABLET 1 tab by mouth for sleep TRAZODONE HCL 100 MG ORAL TABLET 036923 TRAZODONE HCL Inactive LOVAZA 1 GM ORAL CAPSULE 4 daily (for triglycerides) LOVAZA 1 GM ORAL CAPSULE 989879 [id number] ETHYL ESTERS Inactive METFORMIN HCL ER 500 [...] bladder TOLTERODINE TARTRATE 2 MG ORAL TABLET 279283 TOLTERODINE TARTRATE Inactive COLACE 100 MG ORAL CAPSULE 1 pill by mouth twice daily, for constipation 2014 COLACE 100 MG ORAL CAPSULE 9516422 DOCUSATE SODIUM Inactive LOMOTIL 2.5-0.025 MG ORAL TABLET take 1-2 tabs PO after each stool, no more than 8 in 24 hours LOMOTIL 2.5-0.025 MG ORAL TABLET 7737409 DIPHENOXYLATE-ATROPINE Inactive ZOFRAN 4 MG ORAL TABLET 1 po q4hr PRN Nausea ZOFRAN 4 MG ORAL TABLET 256735 ONDANSETRON HCL Inactive HYDROCODONE-ACETAMINOPHEN 5-325 MG ORAL TABLET 2 tabs by mouth three times daily for pain HYDROCODONE-ACETAMINOPHEN 5-325 MG ORAL TABLET 976584 HYDROCODONE-ACETAMINOPHEN Inactive ZOLPIDEM TARTRATE 10 MG ORAL TABLET take at bedtime ZOLPIDEM TARTRATE 10 MG ORAL TABLET 528318 ZOLPIDEM TARTRATE Inactive LISINOPRIL 20 MG ORAL TABLET 1 BID LISINOPRIL 20 MG ORAL TABLET 075343 LISINOPRIL Inactive TRAVATAN Z 0.004 % OPHTHALMIC SOLUTION 1 gtt each eye daily TRAVATAN Z 0.004 % OPHTHALMIC SOLUTION TRAVOPROST Inactive LATUDA 60 MG ORAL TABLET Take one by mouth daily LATUDA 60 MG ORAL TABLET LURASIDONE HCL Inactive FLUVOXAMINE MALEATE 50 MG ORAL TABLET 1 tab by mouth daily 04/01 FLUVOXAMINE MALEATE 50 MG ORAL TABLET 544573 FLUVOXAMINE MALEATE Inactive LEVEMIR FLEXTOUCH 100 UNIT/ML [...] 30G 3 a day TRUEPLUS LANCETS 30G [id number] LANCETS Inactive AMITIZA 24 MCG ORAL CAPSULE [...] noon FLUVOXAMINE MALEATE 100 MG ORAL TABLET 279425 FLUVOXAMINE MALEATE Inactive FLONASE ALLERGY RELIEF 50 MCG/ACT NASAL SUSPENSION One spray each nostril BID x 1 week then daily FLONASE ALLERGY RELIEF 50 MCG/ACT NASAL SUSPENSION [id number] FLUTICASONE PROPIONATE Inactive IMODIUM A-D 2 MG ORAL TABLET 1 tab QID as needed IMODIUM A-D 2 MG ORAL TABLET 108135 LOPERAMIDE HCL Inactive MYLANTA GAS RELIEF MAXIMUM STR 125 MG ORAL CAPSULE 30cc every 4 hours prn MYLANTA GAS RELIEF MAXIMUM STR 125 MG ORAL CAPSULE SIMETHICONE Inactive TRUEPLUS LANCETS 30G 3x a day TRUEPLUS LANCETS 30G [id number] LANCETS Inactive TRUE METRIX BLOOD GLUCOSE TEST [...] headaches TRAZODONE HCL 100 MG ORAL TABLET 746897 TRAZODONE HCL Inactive TYLENOL 8 HOUR 650 [...] evening TAMSULOSIN HCL 0.4 MG ORAL CAPSULE 585228 TAMSULOSIN HCL Inactive [facility] MEL[facility] 3 MG ORAL TABLET give 1 tab by mouth at HS [facility] MELATONIN 3 MG ORAL TABLET 688895 MELATONIN Inactive SEROQUEL 100 MG ORAL TABLET 1 tab daily SEROQUEL 100 MG ORAL TABLET 348012 QUETIAPINE FUMARATE Inactive AMARYL 2 MG ORAL TABLET give 2.5 tabs PO daily AMARYL 2 MG ORAL TABLET 947348 GLIMEPIRIDE Inactive SEROQUEL 25 MG ORAL TABLET Take two tabs by mouth in the morning, take 4 tablets at night SEROQUEL 25 MG ORAL TABLET 849549 QUETIAPINE FUMARATE Inactive QUETIAPINE FUMARATE 25 MG ORAL TABLET 2 tabs BID QUETIAPINE FUMARATE 25 MG ORAL TABLET 474660 QUETIAPINE FUMARATE Inactive QUETIAPINE FUMARATE 100 MG ORAL TABLET 1 tab PO at HS QUETIAPINE FUMARATE 100 MG ORAL TABLET 672900 QUETIAPINE FUMARATE Inactive LATUDA 40 MG ORAL TABLET 1.5 tab by mouth in the afternoon 05/23 LATUDA 40 MG ORAL TABLET LURASIDONE HCL Inactive TOPAMAX 25 MG ORAL TABLET 1 tab BID PRN TOPAMAX 25 MG ORAL TABLET 908447 TOPIRAMATE Inactive EFFEXOR XR 150 MG ORAL [...] a day CEFDINIR 300 MG ORAL CAPSULE 365635 CEFDINIR Inactive AZITHROMYCIN 500 MG INTRAVENOUS SOLUTION RECONSTITUTED 1 po q day AZITHROMYCIN 500 MG INTRAVENOUS SOLUTION RECONSTITUTED [id number] AZITHROMYCIN Inactive AMOXICILLIN 500 MG ORAL CAPSULE 2 po BID x 10 days AMOXICILLIN 500 MG ORAL CAPSULE 823120 AMOXICILLIN Inactive PENICILLIN V POTASSIUM 500 MG ORAL TABLET 1 pill by mouth three times daily PENICILLIN V POTASSIUM 500 MG ORAL TABLET 458247 PENICILLIN V POTASSIUM Inactive KEFLEX 500 MG ORAL CAPSULE 1 po BID x 7 days KEFLEX 500 MG ORAL CAPSULE 025523 CEPHALEXIN Inactive Immunizations Vaccine Administration Date Value [...] Fluvirin, Fluarix, Agriflu(>=18 yo)) Fluzone (>3 yrs.) [[id number]] Influenza, seasonal, injectable pneumococcal immunization administered Pneumovax [...] ... - Chemistry sodium, serum 135 mmol/L 489-937 5537/08/22 carbon dioxide, venous blood 28.4 mmol/L 21.0-32.0 [...] mg/g {creat} 0-29 cholesterol, serum 263 mg/dL [phone]/08/22 triglyceride, serum, fasting 1312 mg/dL 30-200 HDL [...] 80 mg/L 0-19 Office Visit: TCM from assisted - Lab PSA (prostate specific antigent), recommendation and action PSA ordered Encounters Code Encounter Date Provider Facility CPT-92841 [id number] Vst-Est Level IV 15:10:01 [employer] Mason Loredo MD [facility] CPT-81774 [id number] Vst-Est Level III 11:00:25 CDT Shavonne Feliciano PA-C [facility] CPT-09061 Level 3 Est. Patient 09:12:14 [employer]ER [facility] CPT-99469 Level 3 Est. Patient 16:52:51 CDT Vanessa Hickey MD [facility] CPT-66099 Level 3 Est. Patient 17:40:16 CDT [facility] CPT-63871 Level 3 Est. Patient 14:34:52 CDT Vanessa Hickey MD [facility] CPT-54093 Level 3 Est. Patient 16:27:51 CDT [facility] CPT-70753 Level 3 Est. Patient 14:39:00 [employer]ER Vanessa Hickey MD [facility]-57887 Level 2 Est. Patient 18:43:34 CDT [facility] CPT-96565 Level 3 Est. Patient 16:22:09 CDT Cherelle Av[facility] CPT-77875 Level 4 Est. Patient 17:55:14 CDT [facility] CPT-42663 Level 2 Est. Patient 17:13:21 CDT Alina Castaneda MD [facility]-65015 Level 3 Est. Patient 14:46:15 CDT Vanessa Hickey MD [facility]-00107 Level 3 Est. Patient 09:34:56 CDT Alina Castaneda MD [facility]-87580 Level 3 Est. Patient 21:40:19 CDT [facility]-94113 Level 3 Est. Patient 09:26:40 CDT [place] Araceli [facility]-09397 Level 3 Est. Patient 12:36:43 CDT Vanessa Hickey MD [facility]-61619 Level 3 Est. Patient 12:57:49 CDT Vanessa Hickey MD [facility]-10678 Level 3 Est. Patient 00:28:25 CDT Alina Castaneda MD [facility]16502 Level 2 Est. Patient 12:52:14 CDT Alina Castaneda MD PhD [facility]-06139 Level 3 Est. Patient 11:51:18 [employer] Alina Castaneda MD [facility]-32048 Level 3 Est. Patient 10:09:22 [employer]ER Alina Castaneda MD [facility]-47831 Level 3 Est. Patient 14:36:26 [employer]ER [facility]-75988 Level 3 Est. Patient 13:34:47 [employer]ER Alina Castaneda MD [facility]89848 Level 3 Est. Patient 19:52:08 [employer]ER Alina Castaneda MD [facility]36856 Level 3 Est. Patient 10:01:51 [employer]ER [facility] [facility]-70897 Level 3 Est. Patient 21:54:06 CDT Vanessa Hickey MD [facility]-91329 Level 3 Est. Patient 08:54:46 CDT Alina Castaneda MD [facility]-14699 Level 3 Est. Patient 09:32:11 CDT [facility]-90618 Level 3 Est. Patient 12:02:49 CDT Alina Castaneda MD [facility]-90625 Level 3 Est. Patient 19:17:33 CDT Alina Castaneda MD [facility]-60435 Level 3 Est. Patient 13:19:10 CDT [facility]-00082 Level 3 Est. Patient 08:20:05 CDT Alina Castaneda MD [facility]-97878 Level 3 Est. Patient 15:17:18 CDT Alina Castaneda MD [facility]74354 Level 3 Est. Patient 14:25:36 [employer] [facility]-43394 Level 3 Est. Patient 10:09:15 [employer]ER Marvel Araceli [facility] CPT-40109 Level 3 Est. Patient 21:28:43 CDT Alina Castaneda MD [facility]-47705 Level 3 Est. Patient 15:20:11 CDT [facility]92454 Level 4 Est. Patient 19:08:12 CDT Alina Castaneda MD [facility]-28416 Level 3 Est. Patient 15:06:39 CDT [facility]-38151 Level 4 Est. Patient 17:48:15 CDT Alina Castaneda MD [facility]-79880 Level 3 Est. Patient 14:53:49 CDT Alina Castaneda MD [facility]-63278 Level 3 Est. Patient 09:35:16 CDT Alina Castaneda MD [facility]-27365 Level 3 Est. Patient 12:23:22 CDT Alina Castaneda MD [facility]-94072 Level 3 Est. Patient 16:19:15 CDT Alina Castaneda MD [facility]-57193 Level 3 Est. Patient 21:39:56 [employer]ER Alina Castaneda MD [facility]-58626 Level 4 Est. Patient 14:12:56 [employer]ER Alina Castaneda MD [facility]-72660 Level 2 Est. Patient 15:34:57 [employer]ER Alina Castaneda MD [facility]-61716 Level 3 Est. Patient 12:17:04 [employer]ER Alina Castaneda MD [facility]-78203 Level 3 Est. Patient 09:18:18 [employer]ER [facility] [facility]-28671 Level 2 Est. Patient 21:50:24 CDT Alina Castaneda MD [facility]-04033 Level 3 Est. Patient 09:17:28 CDT [facility]-98817 Level 4 Est. Patient 18:54:02 CDT Alina Castaneda MD [facility]41503 Level 3 Est. Patient 10:47:10 CDT Alina Castaneda MD [facility]23282 Level 3 Est. Patient 09:22:20 CDT [facility]-80187 Level 3 Est. Patient 16:39:43 CDT [facility]-06786 Level 3 Est. Patient 16:05:16 CDT Alina Castaneda MD [facility]-95035 Level 3 Est. Patient 00:29:15 CDT Alina Castaneda MD [facility]-54841 Level 3 Est. Patient 10:49:22 [employer] [facility]-59532 Level 3 Est. Patient 21:30:19 [employer]ER Alina Castaneda MD [facility]-13630 Level 4 Est. Patient 17:04:11 [employer]ER [facility]-10526 Level 3 Est. Patient 15:34:11 [employer]ER [facility]-49950 Level 2 Est. Patient 12:51:58 [employer]ER Alina Castaneda MD [facility]26712 Level 3 Est. Patient 13:20:01 [employer]ER Alina Castaneda MD PhD [facility] CPT-88859 Level 3 Est. Patient 09:23:35 CDT Alina Castaneda MD PhD [facility] Procedures Code Procedure Name Date Entry Date Standard Description CPT-G0439 [facility] Annual Wellness Exam 15:49:52 [employer]ER CPT-06639 Level 3 Mcfp 13:20:19 CDT CPT-TCMM Transitional Care Mgmt-Moderate 12:32:19 CDT CPT-29024 Level 2 Mcfp 09:01:11 CDT CPT-93514 HGBA1C - LAB USE ONLY 09:30:27 [employer]ER CPT-30099 BMP - LAB USE ONLY 09:30:27 [employer]ER CPT-03787 Venipuncture Draw Fee 09:30:26 [employer]EW[employer]ER CPT-TCMM Transitional Care Mgmt-Moderate 10:25:31 CDT CPT-56077 Bladder Scan 14:34:53 CDT CPT-85754 Bladder Scan 14:39:01 [employer] BR[employer]ER CPT-TCMM Transitional Care Mgmt-Moderate 10:30:19 [employer]ER CPT-62742 Bladder Scan 12:36:44 CDT CPT-38203 Bladder Scan 21:54:06 CDT CPT-G0008 Administration of Influenza Virus Vaccine 13:05:26 CDT CPT-21423 Fluzone Quadrivalent Intramuscular Suspension 0.5 ML 13: 05:26 CDT CPT-80755 Administration single or combination vaccine inc oral 11 :49:51 CDT CPT-78283 Pneumovax 11:49:51 CDT CPT-42618 Ribs unilateral 2V 12:37:22 [employer]ER CPT-55446 Chest 2V Frontal and Lat 17:15:26 CDT CPT-98233 Abx/Therapy Injection 18:54:02 CDT CPT-J0696 Rocephin 1000 mg (Ceftriaxone) 16:00:32 CDT CPT-22212 Chest 2V Frontal and Lat 15:26:45 CDT CPT-57943 Chest 2V Frontal and Lat 10:23:27 CDT CPT-30781 Venipuncture Draw Fee 10:11:00 CDT CPT-92030 Administration single or combination vaccine inc oral 11 :56:38 CDT CPT-12712 Influenza split virus > age 3 11:56:38 CDT CPT-29266 Venipuncture Draw Fee 08:49:54 [employer]ER CPT-33130 EKG Trac and Interp 17:54:19 [employer]EWABLE [employer]ERGY BR[employer]ER
--- OUTSIDE RECORDS SUMMARY | 2018-07-02 15:09 | XMS REPORT | Clinical Summary ---
Author Author Admin, MIKEE Organization [facility] [employer] Address Unknown Phone Unavailable Allergies, Adverse Reactions, [...] state, unspecified DIABETES, TYPE 2 250.00 Inactive Ailna Castaneda MD PhD Diabetes mellitus without mention 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 Erazo TURF MANAGER Benign paroxysmal positional vertigo Vertigo, benign paroxysmal position 386.11 Inactive Mima Erazo TURF MANAGER Benign paroxysmal positional vertigo High-risk sexual [...] Recurrent isolated sleep paralysis ICD-327.43 Inactive Shavonne Feliciaon PA-C SPECIAL SCREENING FOR MALIGNANT NEOPLASM OF PROSTATE ICD-V76.44 Inactive Alina Castaneda MD PhD Hypoglycemia ICD-251.2 Inactive Alina Castaenda MD PhD Dizziness ICD-780.4 Inactive Alina Castaneda [...] night as needed for sleep ZOLPIDEM TARTRATE 97450932808 Active Mason Loredo MD Active VERAPAMIL HCL ER 180 MG ORAL TABLET EXTENDED RELEASE 1 pill by mouth twice daily, for migraine prevention VERAPAMIL HCL 58290337853 No Longer Active Mason Loredo MD Active EFFEXOR XR 150 MG ORAL CAPSULE EXTENDED RELEASE 24 HOUR 1 tab daily VENLAFAXINE HCL 02649559215 No Longer Active Mason Loredo MD Active VENLAFAXINE HCL ER 150 MG ORAL CAPSULE EXTENDED RELEASE 24 HOUR 1 tablet 2 times a day VENLAFAXINE HCL 34853673066 Active Mason Loredo MD Active TOPAMAX 25 MG ORAL TABLET 1 tab BID PRN TOPIRAMATE 57857778240 No Longer Active Mason Loredo MD Active LATUDA 40 MG ORAL TABLET 1.5 tab by mouth in the afternoon 05/23 LURASIDONE HCL 34051590085 No Longer Active Mason Loredo MD Active QUETIAPINE FUMARATE 100 MG ORAL TABLET 1 tab PO at HS QUETIAPINE FUMARATE 81505817752 No Longer Active Mason Loredo MD Active QUETIAPINE FUMARATE 25 MG ORAL TABLET 2 tabs BID QUETIAPINE FUMARATE 91430119379 No Longer Active Mason Loredo MD Active ATORVASTATIN CALCIUM 10 MG ORAL TABLET Take 1 tablet by mouth daily. Recheck labs in 3 months ATORVASTATIN CALCIUM 92325851722 Active Mya Ledezma MA Active VERAPAMIL HCL ER 180 MG ORAL TABLET EXTENDED RELEASE 1 tab BID VERAPAMIL HCL 09955291743 Active Shavonne Feliciano PA-C Active SEROQUEL 25 MG ORAL TABLET Take two tabs by mouth in the morning, take 4 tablets at night QUETIAPINE FUMARATE 40389474644 No Longer Active Shavonne Feliciano PA-C Active AMARYL 2 MG ORAL TABLET give 2.5 tabs PO daily GLIMEPIRIDE 86953796494 No Longer Active Shavonne Feliciano PA-C Active AMARYL 2 MG ORAL TABLET give 2 tabs PO in the morning GLIMEPIRIDE 32297926258 Active Shavonne Feliciano PA-C Active FENOFIBRATE 145 MG ORAL TABLET 1 tab PO in the morning FENOFIBRATE 06102086244 Active Shavonne Feliciano PA-C Active SEROQUEL 100 MG ORAL TABLET 1 tab daily QUETIAPINE FUMARATE 03247342623 No Longer Active Shavonne Feliciano PA-C Active [facility] MELATONIN 3 MG ORAL TABLET give 1 tab by mouth at HS MELATONIN 38262382033 No Longer Active Gabrielle Marquez MA Active NOVOLOG FLEXPEN 100 UNIT/ML SUBCUTANEOUS SOLUTION PEN-INJECTOR sliding scale INSULIN ASPART 22429731562 Active Gabrielle Marquez MA Active METFORMIN HCL 1000 MG ORAL TABLET 1 tab by mouth BID METFORMIN HCL 54090350879 Active Gabrielle Marquez MA Active [facility] MELATONIN 3 MG ORAL TABLET 1 tab nightly MELATONIN 27964945233 Active Gabrielle Marquez MA Active TAMSULOSIN HCL 0.4 MG ORAL CAPSULE give 2 capsules PO each evening TAMSULOSIN HCL 26116621405 No Longer Active Gabrielle Marquez MA Active VITAMIN D 2000 UNIT ORAL CAPSULE Take one by mouth daily CHOLECALCIFEROL 68738558662 No Longer Active Gabrielle Marquez MA Active LEVEMIR 100 UNIT/ML SUBCUTANEOUS SOLUTION 10 u at bedtime INSULIN DETEMIR 26914400063 Active Gabrielle Marquez MA Active TAMSULOSIN HCL 0.4 MG ORAL CAPSULE 2 every night for urine flow TAMSULOSIN HCL 79049167384 Active Gabrielle Marquez MA Active DIVALPROEX SODIUM 125 MG ORAL TABLET DELAYED RELEASE 1 tab each morning 02/17 DIVALPROEX SODIUM 06838880952 Active Gabrielle Marquez MA Active D 1000 TABLET 2 tab by mouth BID CHOLECALCIFEROL TABS 42815603212 Active Gabrielle Marquez MA Active ALIGN 4 MG ORAL CAPSULE 1 tab at hs PROBIOTIC PRODUCT 68579471660 Active Gabrielle Marquez MA Active CLONAZEPAM 1 MG ORAL TABLET 1 pill by mouth two times daily CLONAZEPAM 23876124532 Active Gabreille Marquez MA Active OCEAN NASAL SPRAY SOLUTION 2 sprays in both nostrils every 8 hours as needed for dry mucous membranes SALINE SOLN 24349879332 Active Mason Loredo MD Active BETHANECHOL CHLORIDE 25 MG ORAL TABLET Take 1 tablet mouth four times a day BETHANECHOL CHLORIDE 86014210739 Active Mason Loredo MD Active [facility] LUBRICANT EYE DROPS 0.4-0.3 % OPHTHALMIC SOLUTION POLYETHYL GLYCOL-PROPYL GLYCOL 93774085548 No Longer Active Mason Loredo MD Active TYLENOL 8 HOUR 650 MG ORAL TABLET EXTENDED RELEASE 1 tab QID prn ACETAMINOPHEN 56752520552 No Longer Active Mason Loredo MD Active TIMOPTIC OCUDOSE 0.5 % OPHTHALMIC SOLUTION instill one drop into both eyes q12H TIMOLOL MALEATE 51494784326 Active Mason Loredo MD Active TRAZODONE HCL 100 MG ORAL TABLET 1 every night to prevent headaches TRAZODONE HCL 98239798294 No Longer Active Mason Loredo MD Active TRAVATAN Z 0.004 % OPHTHALMIC SOLUTION 1 drop each eye daily 2017 TRAVOPROST 03917519275 No Longer Active Mason Loredo MD Active LATUDA 60 MG ORAL TABLET 1 tab daily LURASIDONE HCL 14167867848 No Longer Active Mason Loredo MD Active MORPHINE SULFATE ER 30 MG ORAL TABLET EXTENDED RELEASE Take one capsule BID MORPHINE SULFATE 33523609026 No Longer Active Mason Loredo MD Active TRUE METRIX BLOOD GLUCOSE TEST IN VITRO STRIP Check blood sugars 3x/day. 2015 GLUCOSE BLOOD 76203027899 No Longer Active Mason Loredo MD Active TRUEPLUS LANCETS 30G 3x a day LANCETS 14159003568 No Longer Active Mason Loredo MD Active MYLANTA GAS RELIEF MAXIMUM STR 125 MG ORAL CAPSULE 30cc every 4 hours prn SIMETHICONE 25189359382 No Longer Active Mason Loredo MD Active IMODIUM A-D 2 MG ORAL TABLET 1 tab QID as needed LOPERAMIDE HCL 23233128993 No Longer Active Mason Loredo MD Active FLONASE ALLERGY RELIEF 50 MCG/ACT NASAL SUSPENSION One spray each nostril BID x 1 week then daily FLUTICASONE PROPIONATE 92550017331 No Longer Active Mason Loredo MD Active FLUVOXAMINE MALEATE 100 MG ORAL TABLET take one tab every AM et HS, and take 1 /2 tab at noon FLUVOXAMINE MALEATE 10315122687 No Longer Active Mason Loredo MD Active BD PEN NEEDLE MINI U/F 31G X 5 MM 4 a day INSULIN PEN NEEDLE 43481782502 No Longer Active Mason Loredo MD Active AMITIZA 24 MCG ORAL CAPSULE Take one capsule BID for constipation LUBIPROSTONE 61892287074 No Longer Active Mason Loredo MD Active TRUEPLUS LANCETS 30G 3 a day LANCETS 44681423887 No Longer Active Mason Loredo MD Active CORICIDIN HBP CONGESTION/COUGH 10-200 MG ORAL CAPSULE Take as directed on box as needed for cold/flu symptoms DEXTROMETHORPHAN- GUAIFENESIN 91832635778 No Longer Active Mason Loredo MD Active OMEGA-3 300 MG ORAL CAPSULE 4 caps by mouth daily OMEGA-3 FATTY ACIDS 78086960838 No Longer Active Mason Loredo MD Active HUMALOG KWIKPEN 100 UNIT/ML SUBCUTANEOUS SOLUTION PEN-INJECTOR sliding scale if needed INSULIN LISPRO (HUMAN) 46251314807 No Longer Active Mason Loredo MD Active TRUETEST TEST IN VITRO STRIP check blood sugars 3x/day GLUCOSE BLOOD 57627643315 No Longer Active Mason Loredo MD Active ALFUZOSIN HCL ER 10 MG ORAL TABLET EXTENDED RELEASE 24 HOUR 1 tablet daily ALFUZOSIN HCL 70829540821 No Longer Active Mason Loredo MD Active BD INSULIN SYRINGE 28G X 1/2" 1 ML 1 four times per day INSULIN SYRINGE-NEEDLE U-100 33458488506 No Longer Active Mason Loredo MD Active LEVEMIR FLEXTOUCH 100 UNIT/ML SUBCUTANEOUS SOLUTION PEN-INJECTOR 60 units SQ each evening, for diabetes INSULIN DETEMIR 26334503586 No Longer Active Mason Loredo MD Active LACTULOSE 20 GM/30ML ORAL SOLUTION give 30 Ml PO BID PRN LACTULOSE 37896615571 Active Mason Loredo MD Active COLACE 100 MG ORAL CAPSULE 1 tab BID PRN DOCUSATE SODIUM 47336166893 Active Mason Loredo MD Active LATANOPROST 0.005 % OPHTHALMIC SOLUTION instill 1 drop in both eyes at bed time LATANOPROST 12729136939 Active Mason Loredo MD Active MIRALAX ORAL POWDER 17g by mouth q12h, for constipation POLYETHYLENE GLYCOL 3350 02807454357 Active Mason Loredo MD Active IBUPROFEN 400 MG ORAL TABLET 1 tab Q6H PRN IBUPROFEN 35583533815 Active Mason Loredo MD Active FLUVOXAMINE MALEATE 50 MG ORAL TABLET 1 tab by mouth daily 04/01 FLUVOXAMINE MALEATE 11344060194 No Longer Active Mima Erazo APRN Active TRUE METRIX METER w/Device KIT Check blood sugars 3x/day BLOOD GLUCOSE MONITORING SUPPL 56800388163 Active Marvel MARROQUIN Active LATUDA 60 MG ORAL TABLET Take one by mouth daily LURASIDONE HCL 64597520643 No Longer Active Mima Erazo APRN Active [facility] MILK OF MAGNESIA 400 MG/5ML ORAL SUSPENSION 30ml by mouth bid prn MAGNESIUM HYDROXIDE 42884167561 Active Mason Loredo MD Active TRAVATAN Z 0.004 % OPHTHALMIC SOLUTION 1 gtt each eye daily TRAVOPROST 85138027031 No Longer Active Mason Loredo MD Active LISINOPRIL 20 MG ORAL TABLET 1 BID LISINOPRIL 87473350971 No Longer Active Masno Loredo MD Active ZOLPIDEM TARTRATE 10 MG ORAL TABLET take at bedtime ZOLPIDEM TARTRATE 65948110624 No Longer Active Mason Loredo MD Active HYDROCODONE-ACETAMINOPHEN 5-325 MG ORAL TABLET 2 tabs by mouth three times daily for pain HYDROCODONE-ACETAMINOPHEN 35139242264 No Longer Active Mason Loredo MD Active ZOFRAN 4 MG ORAL TABLET 1 po q4hr PRN Nausea ONDANSETRON HCL 96874357115 No Longer Active Mason Loredo MD Active LOMOTIL 2.5-0.025 MG ORAL TABLET take 1-2 tabs PO after each stool, no more than 8 in 24 hours DIPHENOXYLATE-ATROPINE 55679342002 No Longer Active Mason Loredo MD Active COLACE 100 MG ORAL CAPSULE 1 pill by mouth twice daily, for constipation 2014 DOCUSATE SODIUM 88985282953 No Longer Active Mima Erazo APRN Active TOLTERODINE TARTRATE 2 MG ORAL TABLET 1 pill twice daily, for bladder TOLTERODINE TARTRATE 75358910482 No Longer Active Vanessa Hickey MD Active AMITIZA 24 MCG ORAL CAPSULE Take one capsule BID for constipation. LUBIPROSTONE 66182466897 No Longer Active Vanessa Hickey MD Active METOPROLOL SUCCINATE ER 100 MG ORAL TABLET EXTENDED RELEASE 24 HOUR 1 by mouth daily for blood pressure METOPROLOL SUCCINATE 76969836986 No Longer Active Grace ROJAS Active METFORMIN HCL ER 500 MG ORAL TABLET EXTENDED RELEASE 24 HOUR Take three tablets by mouth everyday METFORMIN HCL 87458903446 No Longer Active Grace Azam RMA Active LOVAZA 1 GM ORAL CAPSULE 4 daily (for triglycerides) [id number] ETHYL ESTERS 29354316956 No Longer Active Grace Azam RMA Active TRAZODONE HCL 100 MG ORAL TABLET 1 tab by mouth for sleep TRAZODONE HCL 68680151126 No Longer Active Grace Azam RMA Active NOVOFINE 32G X 6 MM use one four times per day INSULIN PEN NEEDLE 51354346274 No Longer Active Grace Azam RMA Active BACTROBAN 2 % EXTERNAL CREAM Apply to affected area BID for up to 10 days MUPIROCIN CALCIUM 90093840198 No Longer Active Grace Azam RMA Active KEFLEX 500 MG ORAL CAPSULE 1 po BID x 7 days CEPHALEXIN 35253459055 No Longer Active Cherelle Avila APRN Active FLUVOXAMINE MALEATE 100 MG ORAL TABLET Take one (1) tablet by mouth am, 1/2 at noon FLUVOXAMINE MALEATE 24793829673 No Longer Active Mima Erazo APRN Active FLUVOXAMINE MALEATE 100 MG ORAL TABLET Take 1/2 tab at noon 03/04 FLUVOXAMINE MALEATE 75247456958 No Longer Active Cherelle Avila APRN Active ACCU-CHEK ROSA DEVICE Use device to check blood sugars BLOOD GLUCOSE MONITORING SUPPL 25220339434 No Longer Active Marvel MARROQUIN Active ACCU-CHEK ROSA IN VITRO STRIP use strips with device to check blood sugars 3 times daily GLUCOSE BLOOD 41164641561 No Longer Active Marvel MARROQUIN Active CYCLOBENZAPRINE HCL 10 MG ORAL TABLET 1 tablet by mouth three times daily, scheduled CYCLOBENZAPRINE HCL 73338382699 No Longer Active Alina Castaneda MD PhD Active HUMALOG 100 UNIT/ML SUBCUTANEOUS SOLUTION Take 20 units with breakfast, 10u with lunch and suppetr. INSULIN LISPRO (HUMAN) 30220586209 No Longer Active Alina Castaneda MD PhD Active TRUETEST TEST IN VITRO STRIP check sugars 4x/day GLUCOSE BLOOD 58426486696 No Longer Active Alina Castaneda MD PhD Active MORPHINE SULFATE 30 MG ORAL TABLET 1 pill by mouth twice daily, for pain 2013 MORPHINE SULFATE 10267454234 No Longer Active Mason Loredo MD Active ACYCLOVIR 400 MG ORAL TABLET 1 pill three times daily x 5 days, for cold sore outbreak ACYCLOVIR 61540551553 No Longer Active Alina Castaneda MD PhD Active PENICILLIN V POTASSIUM 500 MG ORAL TABLET 1 pill by mouth three times daily PENICILLIN V POTASSIUM 74994152778 No Longer Active Alina Castaneda MD PhD Active UROXATRAL 10 MG ORAL TABLET EXTENDED RELEASE 24 HOUR Take 1 tablet by mouth daily ALFUZOSIN HCL 63782270325 No Longer Active Alina Castaneda MD PhD Active THIOTHIXENE 5 MG ORAL CAPSULE by mouth twice a day THIOTHIXENE 28940885574 No Longer Active Alina Castaneda MD PhD Active ZYPREXA 7.5 MG ORAL TABLET 1 at HS OLANZAPINE 16451766648 No Longer Active Alina Castaneda MD PhD Active DETROL LA 4 MG ORAL CAPSULE EXTENDED RELEASE 24 HOUR Take 1 tablet by mouth daily TOLTERODINE TARTRATE 43435579492 No Longer Active Alina Castaneda MD PhD Active TERESE CONTOUR TEST IN VITRO STRIP monitor blood sugars 3x/day GLUCOSE BLOOD 79745357746 No Longer Active Alina Castaneda MD PhD Active EQL TRUETEST TEST IN VITRO STRIP Test blood sugar TID GLUCOSE BLOOD 17002227207 No Longer Active Alina Castaneda MD PhD Active FLUTICASONE PROPIONATE 50 MCG/ACT NASAL SUSPENSION 2 sprays each nostril qDay x 30 days FLUTICASONE PROPIONATE 61387115322 No Longer Active Alina Castaneda MD PhD Active IBUPROFEN 200 MG ORAL TABLET 1 Q 6 hr. PRN IBUPROFEN 82400554097 No Longer Active Alina Castaneda MD PhD Active NIACIN ER 500 MG ORAL TABLET EXTENDED RELEASE 4 qHS (for triglycerides) 01/13 NIACIN 36668115673 No Longer Active Alina Castaneda MD PhD Active SAPHRIS 5 MG SUBLINGUAL TABLET SUBLINGUAL by mouth twice a day ASENAPINE MALEATE 04528900762 No Longer Active Maljohn Mackenzieglestela MENDOZAP Active ACETAMINOPHEN 500 MG ORAL TABLET 2 Q 6 hr. PRN ACETAMINOPHEN 78171164898 No Longer Active Maliheh Ziglari INNER TUBE TUBER MACHINE OPERATOR Active ORPHENADRINE CITRATE ER 100 MG ORAL TABLET EXTENDED RELEASE 12 HOUR 1 every 12 hr. as needed ORPHENADRINE CITRATE 36052498078 No Longer Active Alina Castaneda MD PhD Active NIACIN ER 500 MG ORAL TABLET EXTENDED RELEASE 2 qHS NIACIN 51503569210 No Longer Active Alina Castaneda MD PhD Active AMOXICILLIN 500 MG ORAL CAPSULE 2 po BID x 10 days AMOXICILLIN 99915801776 No Longer Active Alina Castaneda MD PhD Active HYDROCODONE-ACETAMINOPHEN 7.5-325 MG ORAL TABLET 1 four times a day as needed for pain HYDROCODONE-ACETAMINOPHEN 05265124572 No Longer Active Alina Castaneda MD PhD Active DOXEPIN HCL 10 MG ORAL CAPSULE Take 1 tablet by mouth daily DOXEPIN HCL 47559030270 No Longer Active Salina Han [facility] Active NAVANE 10 MG CAPS 1/2 tablet twice a day THIOTHIXENE No Longer Active Salina ROJAS Active CYCLOBENZAPRINE HCL 10 MG ORAL TABLET 1/2 tablet by mouth every 8 hours as needed for muscle spasms CYCLOBENZAPRINE HCL 85146027025 No Longer Active Alina Castaneda MD PhD Active BACTROBAN 2 % EXTERNAL CREAM apply to ear and nose twice daily MUPIROCIN CALCIUM 93931110268 No Longer Active Alina Castaneda MD PhD Active HYDROCODONE-ACETAMINOPHEN 5-325 MG ORAL TABLET take one tablet by mouth every four hours as needed for pain HYDROCODONE-ACETAMINOPHEN 85495466032 No Longer Active Alina Castaneda MD PhD Active ZYPREXA 5 MG ORAL TABLET take one tablet by mouth every evening OLANZAPINE 43923577594 No Longer Active Alina Castaneda MD PhD Active ALBUTEROL SULFATE (2.5 MG/3ML) 0.083% INHALATION NEBULIZATION SOLUTION one vial per nebulizer TID and PRN cough/soa ALBUTEROL SULFATE 48756837708 No Longer Active Alina Castaneda MD PhD Active GUAIFENESIN ER 600 MG ORAL TABLET EXTENDED RELEASE 12 HOUR 1 tablet by mouth twice daily if needed for cough GUAIFENESIN 09119040099 No Longer Active Marvel MARROQUIN Active AZITHROMYCIN 500 MG INTRAVENOUS SOLUTION RECONSTITUTED 1 po q day AZITHROMYCIN 49898545049 No Longer Active Alina Castaneda MD PhD Active PROMETHAZINE-CODEINE 6.25-10 MG/5ML ORAL SYRUP 1 tsp po q 6 hours prn cough PROMETHAZINE-CODEINE 91322753838 No Longer Active Alina Castaneda MD PhD Active CEFDINIR 300 MG ORAL CAPSULE by mouth twice a day CEFDINIR 47299548333 No Longer Active Alina Castaneda MD PhD Active METFORMIN HCL ER 500 MG ORAL TABLET EXTENDED RELEASE 24 HOUR Take 3 tablets by mouth everyday METFORMIN HCL 78759711505 No Longer Active Alina Castaneda MD PhD Active LEVEMIR 100 UNIT/ML SUBCUTANEOUS SOLUTION 90 units SQ qHS INSULIN DETEMIR 05831581816 No Longer Active Marvel MARROQUIN Active TOPROL XL 100 MG ORAL TABLET EXTENDED RELEASE 24 HOUR 1 @ HS METOPROLOL SUCCINATE 87858303161 No Longer Active Marvel MARROQUIN Active ALLOPURINOL 300 MG ORAL TABLET Take one by mouth daily ALLOPURINOL 80074543593 Active Mima Erazo TURF MANAGER Active ZYPREXA 10 MG ORAL TABLET Take one by mouth daily OLANZAPINE 27568674313 No Longer Active Alina Castaneda MD PhD Active NOVOLOG 100 UNIT/ML SUBCUTANEOUS SOLUTION 40 units with every meal INSULIN ASPART 14131966602 No Longer Active Alina Castaneda MD PhD Active VERAPAMIL HCL ER 120 MG ORAL TABLET EXTENDED RELEASE 1 qPM 09/08 VERAPAMIL HCL 67626179358 No Longer Active Salina Ervinford RMA Active ZYPREXA 15 MG ORAL TABLET Take 1 tablet by mouth daily OLANZAPINE 88690567080 No Longer Active Marvel MARROQUIN Active ALBUTEROL SULFATE (2.5 MG/3ML) 0.083% INHALATION NEBULIZATION SOLUTION 1 neb tid and prn cough ALBUTEROL SULFATE 14407964578 No Longer Active Alina Castaneda MD PhD Active LANTUS 100 UNIT/ML SUBCUTANEOUS SOLUTION 60 units sq q hs INSULIN GLARGINE 28945018352 No Longer Active CRYSTAL Suarez Active ALBUTEROL SULFATE (2.5 MG/3ML) 0.083% INHALATION NEBULIZATION SOLUTION 1 neb tid and prn cough ALBUTEROL SULFATE (2.5 MG/3ML) 0.083% INHALATION NEBULIZATION SOLUTION 141726 ALBUTEROL SULFATE Inactive ZYPREXA 15 MG ORAL TABLET Take 1 tablet by mouth daily ZYPREXA 15 MG ORAL TABLET 475060 OLANZAPINE Inactive VERAPAMIL HCL ER 120 MG ORAL TABLET EXTENDED RELEASE 1 qPM 09/08 VERAPAMIL HCL ER 120 MG ORAL TABLET EXTENDED RELEASE VERAPAMIL HCL Inactive ZYPREXA 10 MG ORAL TABLET Take one by mouth daily ZYPREXA 10 MG ORAL TABLET 492892 OLANZAPINE Inactive TOPROL XL 100 MG ORAL TABLET EXTENDED RELEASE 24 HOUR 1 @ HS TOPROL XL 100 MG ORAL TABLET EXTENDED RELEASE 24 HOUR METOPROLOL SUCCINATE Inactive LEVEMIR 100 UNIT/ML SUBCUTANEOUS SOLUTION 90 units SQ qHS LEVEMIR 100 UNIT/ML SUBCUTANEOUS SOLUTION INSULIN DETEMIR Inactive PROMETHAZINE-CODEINE 6.25-10 MG/5ML ORAL SYRUP 1 tsp po q 6 hours prn cough PROMETHAZINE-CODEINE 6.25-10 MG/5ML ORAL SYRUP 941431 PROMETHAZINE-CODEINE Inactive GUAIFENESIN ER 600 MG ORAL TABLET EXTENDED RELEASE 12 HOUR 1 tablet by mouth twice daily if needed for cough GUAIFENESIN ER 600 MG ORAL TABLET EXTENDED RELEASE 12 HOUR GUAIFENESIN Inactive ALBUTEROL SULFATE (2.5 MG/3ML) 0.083% INHALATION NEBULIZATION SOLUTION one vial per nebulizer TID and PRN cough/soa ALBUTEROL SULFATE (2.5 MG/3ML) 0.083% INHALATION NEBULIZATION SOLUTION 060814 ALBUTEROL SULFATE Inactive ZYPREXA 5 MG ORAL TABLET take one tablet by mouth every evening ZYPREXA 5 MG ORAL TABLET 285019 OLANZAPINE Inactive HYDROCODONE-ACETAMINOPHEN 5-325 MG ORAL TABLET take one tablet by mouth every four hours as needed for pain HYDROCODONE-ACETAMINOPHEN 5-325 MG ORAL TABLET 743064 HYDROCODONE-ACETAMINOPHEN Inactive BACTROBAN 2 % EXTERNAL CREAM apply to ear and nose twice daily BACTROBAN 2 % EXTERNAL CREAM 299603 MUPIROCIN CALCIUM Inactive CYCLOBENZAPRINE HCL 10 MG ORAL TABLET 1/2 tablet by mouth every 8 hours as needed for muscle spasms CYCLOBENZAPRINE HCL 10 MG ORAL TABLET 624675 CYCLOBENZAPRINE HCL Inactive NAVANE 10 MG CAPS 1/2 tablet twice a day NAVANE 10 MG CAPS THIOTHIXENE Inactive DOXEPIN HCL 10 MG ORAL CAPSULE Take 1 tablet by mouth daily DOXEPIN HCL 10 MG ORAL CAPSULE 4965060 DOXEPIN HCL Inactive HYDROCODONE-ACETAMINOPHEN 7.5-325 MG ORAL TABLET 1 four times a day as needed for pain HYDROCODONE-ACETAMINOPHEN 7.5-325 MG ORAL TABLET 589141 HYDROCODONE-ACETAMINOPHEN Inactive NIACIN ER 500 MG ORAL [...] hr. PRN ACETAMINOPHEN 500 MG ORAL TABLET 436230 ACETAMINOPHEN Inactive SAPHRIS 5 MG SUBLINGUAL TABLET SUBLINGUAL by mouth twice a day SAPHRIS 5 MG SUBLINGUAL TABLET SUBLINGUAL ASENAPINE MALEATE Inactive NIACIN ER 500 MG ORAL TABLET EXTENDED RELEASE 4 qHS (for triglycerides) 01/13 NIACIN ER 500 MG ORAL TABLET EXTENDED RELEASE NIACIN Inactive IBUPROFEN 200 MG ORAL TABLET 1 Q 6 hr. PRN IBUPROFEN 200 MG ORAL TABLET 475563 IBUPROFEN Inactive FLUTICASONE PROPIONATE 50 MCG/ACT NASAL SUSPENSION 2 sprays each nostril qDay x 30 days FLUTICASONE PROPIONATE 50 MCG/ACT NASAL SUSPENSION 7300641 FLUTICASONE PROPIONATE Inactive EQL TRUETEST TEST IN [...] at HS ZYPREXA 7.5 MG ORAL TABLET 791651 OLANZAPINE Inactive THIOTHIXENE 5 MG ORAL CAPSULE by mouth twice a day THIOTHIXENE 5 MG ORAL CAPSULE 700692 THIOTHIXENE Inactive UROXATRAL 10 MG ORAL TABLET EXTENDED RELEASE 24 HOUR Take 1 tablet by mouth daily UROXATRAL 10 MG ORAL TABLET EXTENDED RELEASE 24 HOUR ALFUZOSIN HCL Inactive ACYCLOVIR 400 MG ORAL TABLET 1 pill three times daily x 5 days, for cold sore outbreak ACYCLOVIR 400 MG ORAL TABLET 991392 ACYCLOVIR Inactive TRUETEST TEST IN VITRO STRIP check sugars 4x/day TRUETEST TEST IN VITRO STRIP GLUCOSE BLOOD Inactive HUMALOG 100 UNIT/ML SUBCUTANEOUS SOLUTION Take 20 units with breakfast, 10u with lunch and suppetr. HUMALOG 100 UNIT/ML SUBCUTANEOUS SOLUTION INSULIN LISPRO (HUMAN) Inactive CYCLOBENZAPRINE HCL 10 MG ORAL TABLET 1 tablet by mouth three times daily, scheduled CYCLOBENZAPRINE HCL 10 MG ORAL TABLET 897507 CYCLOBENZAPRINE HCL Inactive ACCU-CHEK ROSA IN VITRO STRIP use strips with device to check blood sugars 3 times daily ACCU-CHEK ROSA IN VITRO STRIP GLUCOSE BLOOD Inactive ACCU-CHEK ROSA DEVICE Use device to check blood sugars ACCU-CHEK ROSA DEVICE BLOOD GLUCOSE MONITORING SUPPL Inactive FLUVOXAMINE MALEATE 100 MG ORAL TABLET Take 1/2 tab at noon 03/04 FLUVOXAMINE MALEATE 100 MG ORAL TABLET 469325 FLUVOXAMINE MALEATE Inactive FLUVOXAMINE MALEATE 100 MG ORAL TABLET Take one (1) tablet by mouth am, 1/2 at noon FLUVOXAMINE MALEATE 100 MG ORAL TABLET 695266 FLUVOXAMINE MALEATE Inactive BACTROBAN 2 % EXTERNAL CREAM Apply to affected area BID for up to 10 days BACTROBAN 2 % EXTERNAL CREAM 501689 MUPIROCIN CALCIUM Inactive NOVOFINE 32G X 6 MM use one four times per day NOVOFINE 32G X 6 MM INSULIN PEN NEEDLE Inactive TRAZODONE HCL 100 MG ORAL TABLET 1 tab by mouth for sleep TRAZODONE HCL 100 MG ORAL TABLET 883679 TRAZODONE HCL Inactive LOVAZA 1 GM ORAL CAPSULE 4 daily (for triglycerides) LOVAZA 1 GM ORAL CAPSULE 996896 [id number] ETHYL ESTERS Inactive METFORMIN HCL ER 500 [...] bladder TOLTERODINE TARTRATE 2 MG ORAL TABLET 662701 TOLTERODINE TARTRATE Inactive COLACE 100 MG ORAL CAPSULE 1 pill by mouth twice daily, for constipation 2014 COLACE 100 MG ORAL CAPSULE 5541314 DOCUSATE SODIUM Inactive LOMOTIL 2.5-0.025 MG ORAL TABLET take 1-2 tabs PO after each stool, no more than 8 in 24 hours LOMOTIL 2.5-0.025 MG ORAL TABLET 8516589 DIPHENOXYLATE-ATROPINE Inactive ZOFRAN 4 MG ORAL TABLET 1 po q4hr PRN Nausea ZOFRAN 4 MG ORAL TABLET 096148 ONDANSETRON HCL Inactive HYDROCODONE-ACETAMINOPHEN 5-325 MG ORAL TABLET 2 tabs by mouth three times daily for pain HYDROCODONE-ACETAMINOPHEN 5-325 MG ORAL TABLET 015855 HYDROCODONE-ACETAMINOPHEN Inactive ZOLPIDEM TARTRATE 10 MG ORAL TABLET take at bedtime ZOLPIDEM TARTRATE 10 MG ORAL TABLET 367945 ZOLPIDEM TARTRATE Inactive LISINOPRIL 20 MG ORAL TABLET 1 BID LISINOPRIL 20 MG ORAL TABLET 549198 LISINOPRIL Inactive TRAVATAN Z 0.004 % OPHTHALMIC SOLUTION 1 gtt each eye daily TRAVATAN Z 0.004 % OPHTHALMIC SOLUTION TRAVOPROST Inactive LATUDA 60 MG ORAL TABLET Take one by mouth daily LATUDA 60 MG ORAL TABLET LURASIDONE HCL Inactive FLUVOXAMINE MALEATE 50 MG ORAL TABLET 1 tab by mouth daily 04/01 FLUVOXAMINE MALEATE 50 MG ORAL TABLET 978026 FLUVOXAMINE MALEATE Inactive LEVEMIR FLEXTOUCH 100 UNIT/ML [...] 30G 3 a day TRUEPLUS LANCETS 30G [id number] LANCETS Inactive AMITIZA 24 MCG ORAL CAPSULE [...] noon FLUVOXAMINE MALEATE 100 MG ORAL TABLET 275204 FLUVOXAMINE MALEATE Inactive FLONASE ALLERGY RELIEF 50 MCG/ACT NASAL SUSPENSION One spray each nostril BID x 1 week then daily FLONASE ALLERGY RELIEF 50 MCG/ACT NASAL SUSPENSION 3470499 FLUTICASONE PROPIONATE Inactive IMODIUM A-D 2 MG ORAL TABLET 1 tab QID as needed IMODIUM A-D 2 MG ORAL TABLET 381904 LOPERAMIDE HCL Inactive MYLANTA GAS RELIEF MAXIMUM STR 125 MG ORAL CAPSULE 30cc every 4 hours prn MYLANTA GAS RELIEF MAXIMUM STR 125 MG ORAL CAPSULE SIMETHICONE Inactive TRUEPLUS LANCETS 30G 3x a day TRUEPLUS LANCETS 30G [id number] LANCETS Inactive TRUE METRIX BLOOD GLUCOSE TEST [...] headaches TRAZODONE HCL 100 MG ORAL TABLET 673694 TRAZODONE HCL Inactive TYLENOL 8 HOUR 650 [...] evening TAMSULOSIN HCL 0.4 MG ORAL CAPSULE 616495 TAMSULOSIN HCL Inactive [facility] MEL[facility]ONIN 3 MG ORAL TABLET give 1 tab by mouth at HS [facility] MELATONIN 3 MG ORAL TABLET 905876 MELATONIN Inactive SEROQUEL 100 MG ORAL TABLET 1 tab daily SEROQUEL 100 MG ORAL TABLET 241486 QUETIAPINE FUMARATE Inactive AMARYL 2 MG ORAL TABLET give 2.5 tabs PO daily AMARYL 2 MG ORAL TABLET 495330 GLIMEPIRIDE Inactive SEROQUEL 25 MG ORAL TABLET Take two tabs by mouth in the morning, take 4 tablets at night SEROQUEL 25 MG ORAL TABLET 563617 QUETIAPINE FUMARATE Inactive QUETIAPINE FUMARATE 25 MG ORAL TABLET 2 tabs BID QUETIAPINE FUMARATE 25 MG ORAL TABLET 734569 QUETIAPINE FUMARATE Inactive QUETIAPINE FUMARATE 100 MG ORAL TABLET 1 tab PO at HS QUETIAPINE FUMARATE 100 MG ORAL TABLET 747566 QUETIAPINE FUMARATE Inactive LATUDA 40 MG ORAL TABLET 1.5 tab by mouth in the afternoon 05/23 LATUDA 40 MG ORAL TABLET LURASIDONE HCL Inactive TOPAMAX 25 MG ORAL TABLET 1 tab BID PRN TOPAMAX 25 MG ORAL TABLET 559010 TOPIRAMATE Inactive EFFEXOR XR 150 MG ORAL [...] a day CEFDINIR 300 MG ORAL CAPSULE 673697 CEFDINIR Inactive AZITHROMYCIN 500 MG INTRAVENOUS SOLUTION RECONSTITUTED 1 po q day AZITHROMYCIN 500 MG INTRAVENOUS SOLUTION RECONSTITUTED [id number] AZITHROMYCIN Inactive AMOXICILLIN 500 MG ORAL CAPSULE 2 po BID x 10 days AMOXICILLIN 500 MG ORAL CAPSULE 609936 AMOXICILLIN Inactive PENICILLIN V POTASSIUM 500 MG ORAL TABLET 1 pill by mouth three times daily PENICILLIN V POTASSIUM 500 MG ORAL TABLET 752373 PENICILLIN V POTASSIUM Inactive KEFLEX 500 MG ORAL CAPSULE 1 po BID x 7 days KEFLEX 500 MG ORAL CAPSULE 515924 CEPHALEXIN Inactive Immunizations Vaccine Administration Date Value [...] Fluvirin, Fluarix, Agriflu(>=18 yo)) Fluzone (>3 yrs.) [[id number]] Influenza, seasonal, injectable pneumococcal immunization administered Pneumovax [...] ... - Chemistry sodium, serum 135 mmol/L 185-101 2286/08/22 carbon dioxide, venous blood 28.4 mmol/L 21.0-32.0 [...] mg/g {creat} 0-29 cholesterol, serum 263 mg/dL 545-845 5306/08/22 triglyceride, serum, fasting 1312 mg/dL 30-200 HDL [...] ordered Encounters Code Encounter Date Provider Facility CPT-97118 [id number] Vst-Est Level IV 15:10:01 PLASTICS PATTERNMAKER Mason Loredo MD [facility] CPT-78683 [id number] Vst-Est Level III 11:00:25 CDT Shavonne Feliciano PA-C [facility] CPT-32447 Level 3 Est. Patient 09:12:14 PLASTICS PATTERNMAKER Mima Erazo [facility] CPT-87166 Level 3 Est. Patient 16:52:51 CDT Vanessa Hickey MD [facility] CPT-62468 Level 3 Est. Patient 17:40:16 CDT Mima Erazo [facility] CPT-82798 Level 3 Est. Patient 14:34:52 CDT Vanessa Hickey MD [facility] CPT-86761 Level 3 Est. Patient 16:27:51 CDT Mima Erazo [facility] CPT-36024 Level 3 Est. Patient 14:39:00 PLASTICS PATTERNMAKER Vanessa Hickey MD [facility]-35715 Level 2 Est. Patient 18:43:34 CDT Mima Erazo [facility] CPT-58902 Level 3 Est. Patient 16:22:09 CDT Cherelle Avila [facility] CPT-42950 Level 4 Est. Patient 17:55:14 CDT Mima Erazo [facility] CPT-98591 Level 2 Est. Patient 17:13:21 CDT Alina Castaneda MD [facility]-61639 Level 3 Est. Patient 14:46:15 CDT Vanessa Hickey MD [facility]-98078 Level 3 Est. Patient 09:34:56 CDT Alina Castaneda MD [facility]-37869 Level 3 Est. Patient 21:40:19 CDT Mima Erazo [facility]-22360 Level 3 Est. Patient 09:26:40 CDT [place] Araceli [facility]-77566 Level 3 Est. Patient 12:36:43 CDT Vanessa Hickey MD [facility]-79660 Level 3 Est. Patient 12:57:49 CDT Vanessa Hickey MD [facility]-28132 Level 3 Est. Patient 00:28:25 CDT Alina Castaneda MD [facility]17694 Level 2 Est. Patient 12:52:14 CDT Ailna Castaneda MD PhD [facility]-50733 Level 3 Est. Patient 11:51:18 PLASTICS PATTERNMAKER Alina Castaneda MD [facility]-04844 Level 3 Est. Patient 10:09:22 PLASTICS PATTERNMAKER Alina Castaneda MD [facility]-83651 Level 3 Est. Patient 14:36:26 PLASTICS PATTERNMAKER Marvel [facility]-03569 Level 3 Est. Patient 13:34:47 PLASTICS PATTERNMAKER Alina Castaneda MD [facility]16824 Level 3 Est. Patient 19:52:08 PLASTICS PATTERNMAKER Alina Castaneda MD [facility]39246 Level 3 Est. Patient 10:01:51 PLASTICS PATTERNMAKER Brooksjohn [facility]-96799 Level 3 Est. Patient 21:54:06 CDT Vanessa Hickey MD [facility]-91761 Level 3 Est. Patient 08:54:46 CDT Alina Castaneda MD [facility]-00104 Level 3 Est. Patient 09:32:11 CDT Marvel [facility]-39921 Level 3 Est. Patient 12:02:49 CDT Alina Castaneda MD [facility]-29623 Level 3 Est. Patient 19:17:33 CDT Alina Castaneda MD [facility]-75829 Level 3 Est. Patient 13:19:10 CDT Marvel [facility]-52548 Level 3 Est. Patient 08:20:05 CDT Alina Castaneda MD [facility]-49395 Level 3 Est. Patient 15:17:18 CDT Alina Castaneda MD [facility]87933 Level 3 Est. Patient 14:25:36 PLASTICS PATTERNMAKER Marvel [facility]-65968 Level 3 Est. Patient 10:09:15 PLASTICS PATTERNMAKER Marvel Araceli [facility] CPT-38787 Level 3 Est. Patient 21:28:43 CDT Alina Castaneda MD [facility]-47297 Level 3 Est. Patient 15:20:11 [facility] Level 4 Est. Patient 19:08:12 CDT Alina Castaneda MD [facility]-43871 Level 3 Est. Patient 15:06:39 [facility]-62030 Level 4 Est. Patient 17:48:15 CDT Alina Castaneda MD [facility]-59341 Level 3 Est. Patient 14:53:49 CDT Alina Castaneda MD [facility]-20126 Level 3 Est. Patient 09:35:16 CDT Alina Castaneda MD [facility]-36936 Level 3 Est. Patient 12:23:22 CDT Alina Castaneda MD [facility]-39642 Level 3 Est. Patient 16:19:15 CDT Alina Castaneda MD [facility]-04925 Level 3 Est. Patient 21:39:56 PLASTICS PATTERNMAKER Alina Castaneda MD [facility]-16856 Level 4 Est. Patient 14:12:56 PLASTICS PATTERNMAKER Alina Castaneda MD [facility]-64759 Level 2 Est. Patient 15:34:57 PLASTICS PATTERNMAKER Alina Castaneda MD [facility]-42459 Level 3 Est. Patient 12:17:04 PLASTICS PATTERNMAKER Alina Castaneda MD [facility]-10514 Level 3 Est. Patient 09:18:18 PLASTICS PATTERNMAKER [facility]-03015 Level 2 Est. Patient 21:50:24 CDT Alina Castaneda MD [facility]-94263 Level 3 Est. Patient 09:17:28 CDT Marvel [facility]-02447 Level 4 Est. Patient 18:54:02 CDT Alina Castaneda MD [facility]79574 Level 3 Est. Patient 10:47:10 CDT Alina Castaneda MD [facility]49166 Level 3 Est. Patient 09:22:20 CDT Marvel [facility]-46744 Level 3 Est. Patient 16:39:43 [facility]-37449 Level 3 Est. Patient 16:05:16 CDT Alina Castaneda MD [facility]-34684 Level 3 Est. Patient 00:29:15 CDT Alina Castaneda MD [facility]-74482 Level 3 Est. Patient 10:49:22 PLASTICS PATTERNMAKER Marvel [facility]-14297 Level 3 Est. Patient 21:30:19 PLASTICS PATTERNMAKER Alina Castaneda MD [facility]-85303 Level 4 Est. Patient 17:04:11 PLASTICS PATTERNMAKER Marvel [facility]-33746 Level 3 Est. Patient 15:34:11 PLASTICS PATTERNMAKER Marvel [facility]-04339 Level 2 Est. Patient 12:51:58 PLASTICS PATTERNMAKER Alina Castaneda MD [facility]80183 Level 3 Est. Patient 13:20:01 PLASTICS PATTERNMAKER Alina Castaneda MD PhD [facility] CPT-55775 Level 3 Est. Patient 09:23:35 CDT Alina Castaneda MD PhD [facility] Procedures Code Procedure Name Date Entry Date Standard Description CPT-G0439 [facility] Annual Wellness Exam 15:49:52 PLASTICS PATTERNMAKER CPT-26149 Level 3 Usp 13:20:19 CDT CPT-TCMM Transitional Care Mgmt-Moderate 12:32:19 CDT CPT-91772 Level 2 Usp 09:01:11 CDT CPT-18493 HGBA1C - LAB USE ONLY 09:30:27 PLASTICS PATTERNMAKER CPT-67531 BMP - LAB USE ONLY 09:30:27 PLASTICS PATTERNMAKER CPT-06691 Venipuncture Draw Fee 09:30:26 PLASTICS PATTERNMAKER CPT-TCMM Transitional Care Mgmt-Moderate 10:25:31 CDT CPT-30292 Bladder Scan 14:34:53 CDT CPT-56270 Bladder Scan 14:39:01 PLASTICS PATTERNMAKER CPT-TCMM Transitional Care Mgmt-Moderate 10:30:19 PLASTICS PATTERNMAKER CPT-32379 Bladder Scan 12:36:44 CDT CPT-21316 Bladder Scan 21:54:06 CDT CPT-G0008 Administration of Influenza Virus Vaccine 13:05:26 CDT CPT-45581 Fluzone Quadrivalent Intramuscular Suspension 0.5 ML 13: 05:26 CDT CPT-92411 Administration single or combination vaccine inc oral 11 :49:51 CDT CPT-87640 Pneumovax 11:49:51 CDT CPT-81993 Ribs unilateral 2V 12:37:22 PLASTICS PATTERNMAKER CPT-85220 Chest 2V Frontal and Lat 17:15:26 CDT CPT-71175 Abx/Therapy Injection 18:54:02 CDT CPT-J0696 Rocephin 1000 mg (Ceftriaxone) 16:00:32 CDT CPT-43767 Chest 2V Frontal and Lat 15:26:45 CDT CPT-16930 Chest 2V Frontal and Lat 10:23:27 CDT CPT-95148 Venipuncture Draw Fee 10:11:00 CDT CPT-55680 Administration single or combination vaccine inc oral 11 :56:38 CDT CPT-90070 Influenza split virus > age 3 11:56:38 CDT CPT-27118 Venipuncture Draw Fee 08:49:54 PLASTICS PATTERNMAKER CPT-35734 EKG Trac and Interp 17:54:19 PLASTICS PATTERNMAKER
--- OUTSIDE RECORDS SUMMARY | 2018-07-02 15:12 | XMS REPORT | Clinical Summary ---
Author Author Admin, MIKEE Organization [facility] [employer] Address Unknown Phone Unavailable Allergies, Adverse Reactions, 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 Erazo DESIGNATED BROKER Benign paroxysmal positional vertigo Vertigo, benign paroxysmal position 386.11 Inactive Mima Erzao DESIGNATED BROKER Benign paroxysmal positional vertigo High-risk sexual behavior [...] night as needed for sleep ZOLPIDEM TARTRATE 67026596750 Active Mason Loredo MD Active VERAPAMIL HCL ER 180 MG ORAL TABLET EXTENDED RELEASE 1 pill by mouth twice daily, for migraine prevention VERAPAMIL HCL 46413111757 No Longer Active Mason Loredo MD Active EFFEXOR XR 150 MG ORAL CAPSULE EXTENDED RELEASE 24 HOUR 1 tab daily VENLAFAXINE HCL 49799715143 No Longer Active Mason Loredo MD Active VENLAFAXINE HCL ER 150 MG ORAL CAPSULE EXTENDED RELEASE 24 HOUR 1 tablet 2 times a day VENLAFAXINE HCL 79560820668 Active Mason Loredo MD Active TOPAMAX 25 MG ORAL TABLET 1 tab BID PRN TOPIRAMATE 83514315042 No Longer Active Mason Loredo MD Active LATUDA 40 MG ORAL TABLET 1.5 tab by mouth in the afternoon 05/23 LURASIDONE HCL 21054725826 No Longer Active Mason Loredo MD Active QUETIAPINE FUMARATE 100 MG ORAL TABLET 1 tab PO at HS QUETIAPINE FUMARATE 60701667509 No Longer Active Mason Loredo MD Active QUETIAPINE FUMARATE 25 MG ORAL TABLET 2 tabs BID QUETIAPINE FUMARATE 08118407148 No Longer Active Mason Loredo MD Active ATORVASTATIN CALCIUM 10 MG ORAL TABLET Take 1 tablet by mouth daily. Recheck labs in 3 months ATORVASTATIN CALCIUM 51870170977 Active May Ledezma MA Active VERAPAMIL HCL ER 180 MG ORAL TABLET EXTENDED RELEASE 1 tab BID VERAPAMIL HCL 09904093003 Active Shavonne Feliciano PA-C Active SEROQUEL 25 MG ORAL TABLET Take two tabs by mouth in the morning, take 4 tablets at night QUETIAPINE FUMARATE 25779081078 No Longer Active Shavonne Feliciano PA-C Active AMARYL 2 MG ORAL TABLET give 2.5 tabs PO daily GLIMEPIRIDE 42140712408 No Longer Active Shavonne Feliciano PA-C Active AMARYL 2 MG ORAL TABLET give 2 tabs PO in the morning GLIMEPIRIDE 09393494096 Active Shavonne Feliciano PA-C Active FENOFIBRATE 145 MG ORAL TABLET 1 tab PO in the morning FENOFIBRATE 34792815461 Active Shavonne Feliciano PA-C Active SEROQUEL 100 MG ORAL TABLET 1 tab daily QUETIAPINE FUMARATE 98941231225 No Longer Active Shavonne Feliciano PA-C Active [facility] MELATONIN 3 MG ORAL TABLET give 1 tab by mouth at HS MELATONIN 45323493675 No Longer Active Gabrielle Marquez MA Active NOVOLOG FLEXPEN 100 UNIT/ML SUBCUTANEOUS SOLUTION PEN-INJECTOR sliding scale INSULIN ASPART 38665040990 Active Gabrielle Marquez MA Active METFORMIN HCL 1000 MG ORAL TABLET 1 tab by mouth BID METFORMIN HCL 88157073290 Active Gabrielle Marquez MA Active [facility] MELATONIN 3 MG ORAL TABLET 1 tab nightly MELATONIN 45362074520 Active Gabrielle Marquez MA Active TAMSULOSIN HCL 0.4 MG ORAL CAPSULE give 2 capsules PO each evening TAMSULOSIN HCL 28096168699 No Longer Active Gabrielle Marquez MA Active VITAMIN D 2000 UNIT ORAL CAPSULE Take one by mouth daily CHOLECALCIFEROL 31645113315 No Longer Active Gabrielle Marquez MA Active LEVEMIR 100 UNIT/ML SUBCUTANEOUS SOLUTION 10 u at bedtime INSULIN DETEMIR 35988988735 Active Gabrielle Marquez MA Active TAMSULOSIN HCL 0.4 MG ORAL CAPSULE 2 every night for urine flow TAMSULOSIN HCL 33861492751 Active Gabrielle Marquez MA Active DIVALPROEX SODIUM 125 MG ORAL TABLET DELAYED RELEASE 1 tab each morning 02/17 DIVALPROEX SODIUM 05315453225 Active Gabrielle Marquez MA Active D 1000 TABLET 2 tab by mouth BID CHOLECALCIFEROL TABS 49640680155 Active Gabrielle Marquez MA Active ALIGN 4 MG ORAL CAPSULE 1 tab at hs PROBIOTIC PRODUCT 36987998514 Active Gabrielle Marquez MA Active CLONAZEPAM 1 MG ORAL TABLET 1 pill by mouth two times daily CLONAZEPAM 58646610466 Active Gabrielle Marquez MA Active OCEAN NASAL SPRAY SOLUTION 2 sprays in both nostrils every 8 hours as needed for dry mucous membranes SALINE SOLN 84398683348 Active Mason Loredo MD Active BETHANECHOL CHLORIDE 25 MG ORAL TABLET Take 1 tablet mouth four times a day BETHANECHOL CHLORIDE 96994237261 Active Mason Loredo MD Active [facility] LUBRICANT EYE DROPS 0.4-0.3 % OPHTHALMIC SOLUTION POLYETHYL GLYCOL-PROPYL GLYCOL 13873129967 No Longer Active Mason Loredo MD Active TYLENOL 8 HOUR 650 MG ORAL TABLET EXTENDED RELEASE 1 tab QID prn ACETAMINOPHEN 89507477070 No Longer Active Mason Loredo MD Active TIMOPTIC OCUDOSE 0.5 % OPHTHALMIC SOLUTION instill one drop into both eyes q12H TIMOLOL MALEATE 84546409313 Active Mason Loredo MD Active TRAZODONE HCL 100 MG ORAL TABLET 1 every night to prevent headaches TRAZODONE HCL 37501742285 No Longer Active Mason Loredo MD Active TRAVATAN Z 0.004 % OPHTHALMIC SOLUTION 1 drop each eye daily 2017 TRAVOPROST 80912585632 No Longer Active Mason Loredo MD Active LATUDA 60 MG ORAL TABLET 1 tab daily LURASIDONE HCL 20897478478 No Longer Active Mason Loredo MD Active MORPHINE SULFATE ER 30 MG ORAL TABLET EXTENDED RELEASE Take one capsule BID MORPHINE SULFATE 53624127833 No Longer Active Mason Loredo MD Active TRUE METRIX BLOOD GLUCOSE TEST IN VITRO STRIP Check blood sugars 3x/day. 2015 GLUCOSE BLOOD 95496822522 No Longer Active Mason Loredo MD Active TRUEPLUS LANCETS 30G 3x a day LANCETS 33667785011 No Longer Active Mason Loredo MD Active MYLANTA GAS RELIEF MAXIMUM STR 125 MG ORAL CAPSULE 30cc every 4 hours prn SIMETHICONE 84732739577 No Longer Active Mason Loredo MD Active IMODIUM A-D 2 MG ORAL TABLET 1 tab QID as needed LOPERAMIDE HCL 64971359313 No Longer Active Mason Loredo MD Active FLONASE ALLERGY RELIEF 50 MCG/ACT NASAL SUSPENSION One spray each nostril BID x 1 week then daily FLUTICASONE PROPIONATE 88828129170 No Longer Active Mason Loredo MD Active FLUVOXAMINE MALEATE 100 MG ORAL TABLET take one tab every AM et HS, and take 1 /2 tab at noon FLUVOXAMINE MALEATE 95607668592 No Longer Active Mason Loredo MD Active BD PEN NEEDLE MINI U/F 31G X 5 MM 4 a day INSULIN PEN NEEDLE 32737239144 No Longer Active Mason Loredo MD Active AMITIZA 24 MCG ORAL CAPSULE Take one capsule BID for constipation LUBIPROSTONE 30185465026 No Longer Active Mason Loredo MD Active TRUEPLUS LANCETS 30G 3 a day LANCETS 01207332217 No Longer Active Mason Loredo MD Active CORICIDIN HBP CONGESTION/COUGH 10-200 MG ORAL CAPSULE Take as directed on box as needed for cold/flu symptoms DEXTROMETHORPHAN- GUAIFENESIN 53293832068 No Longer Active Mason Loredo MD Active OMEGA-3 300 MG ORAL CAPSULE 4 caps by mouth daily OMEGA-3 FATTY ACIDS 23508720439 No Longer Active Mason Loredo MD Active HUMALOG KWIKPEN 100 UNIT/ML SUBCUTANEOUS SOLUTION PEN-INJECTOR sliding scale if needed INSULIN LISPRO (HUMAN) 40876996202 No Longer Active Mason Loredo MD Active TRUETEST TEST IN VITRO STRIP check blood sugars 3x/day GLUCOSE BLOOD 54235228357 No Longer Active Mason Loredo MD Active ALFUZOSIN HCL ER 10 MG ORAL TABLET EXTENDED RELEASE 24 HOUR 1 tablet daily ALFUZOSIN HCL 63779695271 No Longer Active Mason Loredo MD Active BD INSULIN SYRINGE 28G X 1/2" 1 ML 1 four times per day INSULIN SYRINGE-NEEDLE U-100 00036288623 No Longer Active Mason Loredo MD Active LEVEMIR FLEXTOUCH 100 UNIT/ML SUBCUTANEOUS SOLUTION PEN-INJECTOR 60 units SQ each evening, for diabetes INSULIN DETEMIR 38640879629 No Longer Active Mason Loredo MD Active LACTULOSE 20 GM/30ML ORAL SOLUTION give 30 Ml PO BID PRN LACTULOSE 47031085140 Active Mason Loredo MD Active COLACE 100 MG ORAL CAPSULE 1 tab BID PRN DOCUSATE SODIUM 96184750669 Active Mason Loredo MD Active LATANOPROST 0.005 % OPHTHALMIC SOLUTION instill 1 drop in both eyes at bed time LATANOPROST 57236634479 Active Mason Loredo MD Active MIRALAX ORAL POWDER 17g by mouth q12h, for constipation POLYETHYLENE GLYCOL 3350 26085017640 Active Mason Loredo MD Active IBUPROFEN 400 MG ORAL TABLET 1 tab Q6H PRN IBUPROFEN 17651135634 Active Mason Loredo MD Active FLUVOXAMINE MALEATE 50 MG ORAL TABLET 1 tab by mouth daily 04/01 FLUVOXAMINE MALEATE 72462144137 No Longer Active Mima Erazo APRN Active TRUE METRIX METER w/Device KIT Check blood sugars 3x/day BLOOD GLUCOSE MONITORING SUPPL 72246782277 Active Marvel MARROQUIN Active LATUDA 60 MG ORAL TABLET Take one by mouth daily LURASIDONE HCL 61412274596 No Longer Active Mima Erazo APRN Active [facility] MILK OF MAGNESIA 400 MG/5ML ORAL SUSPENSION 30ml by mouth bid prn MAGNESIUM HYDROXIDE 73706961009 Active Mason Loredo MD Active TRAVATAN Z 0.004 % OPHTHALMIC SOLUTION 1 gtt each eye daily TRAVOPROST 25303121155 No Longer Active Mason Loredo MD Active LISINOPRIL 20 MG ORAL TABLET 1 BID LISINOPRIL 97012706227 No Longer Active Mason Loredo MD Active ZOLPIDEM TARTRATE 10 MG ORAL TABLET take at bedtime ZOLPIDEM TARTRATE 58251537479 No Longer Active Mason Loredo MD Active HYDROCODONE-ACETAMINOPHEN 5-325 MG ORAL TABLET 2 tabs by mouth three times daily for pain HYDROCODONE-ACETAMINOPHEN 32831212034 No Longer Active Mason Loredo MD Active ZOFRAN 4 MG ORAL TABLET 1 po q4hr PRN Nausea ONDANSETRON HCL 02933145474 No Longer Active Mason Loredo MD Active LOMOTIL 2.5-0.025 MG ORAL TABLET take 1-2 tabs PO after each stool, no more than 8 in 24 hours DIPHENOXYLATE-ATROPINE 86169881569 No Longer Active Mason Loredo MD Active COLACE 100 MG ORAL CAPSULE 1 pill by mouth twice daily, for constipation 2014 DOCUSATE SODIUM 56337250244 No Longer Active Mima Erazo APRN Active TOLTERODINE TARTRATE 2 MG ORAL TABLET 1 pill twice daily, for bladder TOLTERODINE TARTRATE 96566101581 No Longer Active Vanessa Hickey MD Active AMITIZA 24 MCG ORAL CAPSULE Take one capsule BID for constipation. LUBIPROSTONE 20284557524 No Longer Active Vanessa Hickey MD Active METOPROLOL SUCCINATE ER 100 MG ORAL TABLET EXTENDED RELEASE 24 HOUR 1 by mouth daily for blood pressure METOPROLOL SUCCINATE 77005561377 No Longer Active Grace ROJAS Active METFORMIN HCL ER 500 MG ORAL TABLET EXTENDED RELEASE 24 HOUR Take three tablets by mouth everyday METFORMIN HCL 40824911039 No Longer Active Grace Azam RMA Active LOVAZA 1 GM ORAL CAPSULE 4 daily (for triglycerides) [id number] ETHYL ESTERS 58062845032 No Longer Active Grace Azam RMA Active TRAZODONE HCL 100 MG ORAL TABLET 1 tab by mouth for sleep TRAZODONE HCL 53992609326 No Longer Active Grace Azam RMA Active NOVOFINE 32G X 6 MM use one four times per day INSULIN PEN NEEDLE 96137757391 No Longer Active Grace Azam RMA Active BACTROBAN 2 % EXTERNAL CREAM Apply to affected area BID for up to 10 days MUPIROCIN CALCIUM 51397694292 No Longer Active Grace Azam RMA Active KEFLEX 500 MG ORAL CAPSULE 1 po BID x 7 days CEPHALEXIN 70184942165 No Longer Active Cherelle Avila APRN Active FLUVOXAMINE MALEATE 100 MG ORAL TABLET Take one (1) tablet by mouth am, 1/2 at noon FLUVOXAMINE MALEATE 63932182129 No Longer Active Mima Erazo APRN Active FLUVOXAMINE MALEATE 100 MG ORAL TABLET Take 1/2 tab at noon 03/04 FLUVOXAMINE MALEATE 05777082271 No Longer Active Cherelle Avila APRN Active ACCU-CHEK ROSA DEVICE Use device to check blood sugars BLOOD GLUCOSE MONITORING SUPPL 34518741717 No Longer Active Marvel MARROQUIN Active ACCU-CHEK ROSA IN VITRO STRIP use strips with device to check blood sugars 3 times daily GLUCOSE BLOOD 72670616512 No Longer Active Marvel MARROQUIN Active CYCLOBENZAPRINE HCL 10 MG ORAL TABLET 1 tablet by mouth three times daily, scheduled CYCLOBENZAPRINE HCL 36123706711 No Longer Active Alina Castaneda MD PhD Active HUMALOG 100 UNIT/ML SUBCUTANEOUS SOLUTION Take 20 units with breakfast, 10u with lunch and suppetr. INSULIN LISPRO (HUMAN) 73944224583 No Longer Active Alina Castaneda MD PhD Active TRUETEST TEST IN VITRO STRIP check sugars 4x/day GLUCOSE BLOOD 25289738750 No Longer Active Alina Castaneda MD PhD Active MORPHINE SULFATE 30 MG ORAL TABLET 1 pill by mouth twice daily, for pain 2013 MORPHINE SULFATE 09079453179 No Longer Active Mason Loredo MD Active ACYCLOVIR 400 MG ORAL TABLET 1 pill three times daily x 5 days, for cold sore outbreak ACYCLOVIR 37129076759 No Longer Active Alina Castaneda MD PhD Active PENICILLIN V POTASSIUM 500 MG ORAL TABLET 1 pill by mouth three times daily PENICILLIN V POTASSIUM 02534086467 No Longer Active Alina Castaneda MD PhD Active UROXATRAL 10 MG ORAL TABLET EXTENDED RELEASE 24 HOUR Take 1 tablet by mouth daily ALFUZOSIN HCL 48952479973 No Longer Active Alina Castaneda MD PhD Active THIOTHIXENE 5 MG ORAL CAPSULE by mouth twice a day THIOTHIXENE 52362134714 No Longer Active Alina Castaneda MD PhD Active ZYPREXA 7.5 MG ORAL TABLET 1 at HS OLANZAPINE 55224059895 No Longer Active Alina Castaneda MD PhD Active DETROL LA 4 MG ORAL CAPSULE EXTENDED RELEASE 24 HOUR Take 1 tablet by mouth daily TOLTERODINE TARTRATE 88901259548 No Longer Active Alina Castaneda MD PhD Active TERESE CONTOUR TEST IN VITRO STRIP monitor blood sugars 3x/day GLUCOSE BLOOD 38135542201 No Longer Active Alina Castaneda MD PhD Active EQL TRUETEST TEST IN VITRO STRIP Test blood sugar TID GLUCOSE BLOOD 28223748307 No Longer Active Alina Castaneda MD PhD Active FLUTICASONE PROPIONATE 50 MCG/ACT NASAL SUSPENSION 2 sprays each nostril qDay x 30 days FLUTICASONE PROPIONATE 65868766400 No Longer Active Alina Castaneda MD PhD Active IBUPROFEN 200 MG ORAL TABLET 1 Q 6 hr. PRN IBUPROFEN 37037522965 No Longer Active Alina Castaneda MD PhD Active NIACIN ER 500 MG ORAL TABLET EXTENDED RELEASE 4 qHS (for triglycerides) 01/13 NIACIN 00710449721 No Longer Active Alina Castaneda MD PhD Active SAPHRIS 5 MG SUBLINGUAL TABLET SUBLINGUAL by mouth twice a day ASENAPINE MALEATE 66713628879 No Longer Active Maljonh Mackenzieglestela MENDOZAP Active ACETAMINOPHEN 500 MG ORAL TABLET 2 Q 6 hr. PRN ACETAMINOPHEN 02666568296 No Longer Active Maliheh Ziglari COMPRESSED GAS TESTER Active ORPHENADRINE CITRATE ER 100 MG ORAL TABLET EXTENDED RELEASE 12 HOUR 1 every 12 hr. as needed ORPHENADRINE CITRATE 11362043842 No Longer Active Alina Castaneda MD PhD Active NIACIN ER 500 MG ORAL TABLET EXTENDED RELEASE 2 qHS NIACIN 13211451376 No Longer Active Alina Castaneda MD PhD Active AMOXICILLIN 500 MG ORAL CAPSULE 2 po BID x 10 days AMOXICILLIN 95243013882 No Longer Active Alina Castaneda MD PhD Active HYDROCODONE-ACETAMINOPHEN 7.5-325 MG ORAL TABLET 1 four times a day as needed for pain HYDROCODONE-ACETAMINOPHEN 24977872843 No Longer Active Alina Castaneda MD PhD Active DOXEPIN HCL 10 MG ORAL CAPSULE Take 1 tablet by mouth daily DOXEPIN HCL 22665387870 No Longer Active Salina Han [facility] Active NAVANE 10 MG CAPS 1/2 tablet twice a day THIOTHIXENE No Longer Active Salina ROJAS Active CYCLOBENZAPRINE HCL 10 MG ORAL TABLET 1/2 tablet by mouth every 8 hours as needed for muscle spasms CYCLOBENZAPRINE HCL 20224696044 No Longer Active Alina Castaneda MD PhD Active BACTROBAN 2 % EXTERNAL CREAM apply to ear and nose twice daily MUPIROCIN CALCIUM 07904595452 No Longer Active Alina Castaneda MD PhD Active HYDROCODONE-ACETAMINOPHEN 5-325 MG ORAL TABLET take one tablet by mouth every four hours as needed for pain HYDROCODONE-ACETAMINOPHEN 29463672965 No Longer Active Alina Castaneda MD PhD Active ZYPREXA 5 MG ORAL TABLET take one tablet by mouth every evening OLANZAPINE 62032423439 No Longer Active Alina Castaneda MD PhD Active ALBUTEROL SULFATE (2.5 MG/3ML) 0.083% INHALATION NEBULIZATION SOLUTION one vial per nebulizer TID and PRN cough/soa ALBUTEROL SULFATE 87254414177 No Longer Active Alina Castaneda MD PhD Active GUAIFENESIN ER 600 MG ORAL TABLET EXTENDED RELEASE 12 HOUR 1 tablet by mouth twice daily if needed for cough GUAIFENESIN 79841083524 No Longer Active Marvel MARROQUIN Active AZITHROMYCIN 500 MG INTRAVENOUS SOLUTION RECONSTITUTED 1 po q day AZITHROMYCIN 01881429110 No Longer Active Alina Castaneda MD PhD Active PROMETHAZINE-CODEINE 6.25-10 MG/5ML ORAL SYRUP 1 tsp po q 6 hours prn cough PROMETHAZINE-CODEINE 00736704231 No Longer Active Alina Castaneda MD PhD Active CEFDINIR 300 MG ORAL CAPSULE by mouth twice a day CEFDINIR 00640629043 No Longer Active Alina Castaneda MD PhD Active METFORMIN HCL ER 500 MG ORAL TABLET EXTENDED RELEASE 24 HOUR Take 3 tablets by mouth everyday METFORMIN HCL 75561264204 No Longer Active Alina Castaneda MD PhD Active LEVEMIR 100 UNIT/ML SUBCUTANEOUS SOLUTION 90 units SQ qHS INSULIN DETEMIR 16184814898 No Longer Active Marvel MARROQUIN Active TOPROL XL 100 MG ORAL TABLET EXTENDED RELEASE 24 HOUR 1 @ HS METOPROLOL SUCCINATE 01685012200 No Longer Active Marvel MARROQUIN Active ALLOPURINOL 300 MG ORAL TABLET Take one by mouth daily ALLOPURINOL 64326968417 Active Mima Erazo DESIGNATED BROKER Active ZYPREXA 10 MG ORAL TABLET Take one by mouth daily OLANZAPINE 18069606867 No Longer Active Alina Castaneda MD PhD Active NOVOLOG 100 UNIT/ML SUBCUTANEOUS SOLUTION 40 units with every meal INSULIN ASPART 31753082210 No Longer Active Alina Castaneda MD PhD Active VERAPAMIL HCL ER 120 MG ORAL TABLET EXTENDED RELEASE 1 qPM 09/08 VERAPAMIL HCL 79700332522 No Longer Active Salina Ervinford RMA Active ZYPREXA 15 MG ORAL TABLET Take 1 tablet by mouth daily OLANZAPINE 20863452431 No Longer Active Marvel MARROQUIN Active ALBUTEROL SULFATE (2.5 MG/3ML) 0.083% INHALATION NEBULIZATION SOLUTION 1 neb tid and prn cough ALBUTEROL SULFATE 30395478628 No Longer Active Alina Castaneda MD PhD Active LANTUS 100 UNIT/ML SUBCUTANEOUS SOLUTION 60 units sq q hs INSULIN GLARGINE 93030575403 No Longer Active CRYSTAL Suarez Active ALBUTEROL SULFATE (2.5 MG/3ML) 0.083% INHALATION NEBULIZATION SOLUTION 1 neb tid and prn cough ALBUTEROL SULFATE (2.5 MG/3ML) 0.083% INHALATION NEBULIZATION SOLUTION 433246 ALBUTEROL SULFATE Inactive ZYPREXA 15 MG ORAL TABLET Take 1 tablet by mouth daily ZYPREXA 15 MG ORAL TABLET 990058 OLANZAPINE Inactive VERAPAMIL HCL ER 120 MG ORAL TABLET EXTENDED RELEASE 1 qPM 09/08 VERAPAMIL HCL ER 120 MG ORAL TABLET EXTENDED RELEASE VERAPAMIL HCL Inactive ZYPREXA 10 MG ORAL TABLET Take one by mouth daily ZYPREXA 10 MG ORAL TABLET 607176 OLANZAPINE Inactive TOPROL XL 100 MG ORAL TABLET EXTENDED RELEASE 24 HOUR 1 @ HS TOPROL XL 100 MG ORAL TABLET EXTENDED RELEASE 24 HOUR METOPROLOL SUCCINATE Inactive LEVEMIR 100 UNIT/ML SUBCUTANEOUS SOLUTION 90 units SQ qHS LEVEMIR 100 UNIT/ML SUBCUTANEOUS SOLUTION INSULIN DETEMIR Inactive PROMETHAZINE-CODEINE 6.25-10 MG/5ML ORAL SYRUP 1 tsp po q 6 hours prn cough PROMETHAZINE-CODEINE 6.25-10 MG/5ML ORAL SYRUP 617022 PROMETHAZINE-CODEINE Inactive GUAIFENESIN ER 600 MG ORAL TABLET EXTENDED RELEASE 12 HOUR 1 tablet by mouth twice daily if needed for cough GUAIFENESIN ER 600 MG ORAL TABLET EXTENDED RELEASE 12 HOUR GUAIFENESIN Inactive ALBUTEROL SULFATE (2.5 MG/3ML) 0.083% INHALATION NEBULIZATION SOLUTION one vial per nebulizer TID and PRN cough/soa ALBUTEROL SULFATE (2.5 MG/3ML) 0.083% INHALATION NEBULIZATION SOLUTION 683976 ALBUTEROL SULFATE Inactive ZYPREXA 5 MG ORAL TABLET take one tablet by mouth every evening ZYPREXA 5 MG ORAL TABLET 668226 OLANZAPINE Inactive HYDROCODONE-ACETAMINOPHEN 5-325 MG ORAL TABLET take one tablet by mouth every four hours as needed for pain HYDROCODONE-ACETAMINOPHEN 5-325 MG ORAL TABLET 836050 HYDROCODONE-ACETAMINOPHEN Inactive BACTROBAN 2 % EXTERNAL CREAM apply to ear and nose twice daily BACTROBAN 2 % EXTERNAL CREAM 721550 MUPIROCIN CALCIUM Inactive CYCLOBENZAPRINE HCL 10 MG ORAL TABLET 1/2 tablet by mouth every 8 hours as needed for muscle spasms CYCLOBENZAPRINE HCL 10 MG ORAL TABLET 620566 CYCLOBENZAPRINE HCL Inactive NAVANE 10 MG CAPS 1/2 tablet twice a day NAVANE 10 MG CAPS THIOTHIXENE Inactive DOXEPIN HCL 10 MG ORAL CAPSULE Take 1 tablet by mouth daily DOXEPIN HCL 10 MG ORAL CAPSULE 7803471 DOXEPIN HCL Inactive HYDROCODONE-ACETAMINOPHEN 7.5-325 MG ORAL TABLET 1 four times a day as needed for pain HYDROCODONE-ACETAMINOPHEN 7.5-325 MG ORAL TABLET 888378 HYDROCODONE-ACETAMINOPHEN Inactive NIACIN ER 500 MG ORAL [...] hr. PRN ACETAMINOPHEN 500 MG ORAL TABLET 932046 ACETAMINOPHEN Inactive SAPHRIS 5 MG SUBLINGUAL TABLET SUBLINGUAL by mouth twice a day SAPHRIS 5 MG SUBLINGUAL TABLET SUBLINGUAL ASENAPINE MALEATE Inactive NIACIN ER 500 MG ORAL TABLET EXTENDED RELEASE 4 qHS (for triglycerides) 01/13 NIACIN ER 500 MG ORAL TABLET EXTENDED RELEASE NIACIN Inactive IBUPROFEN 200 MG ORAL TABLET 1 Q 6 hr. PRN IBUPROFEN 200 MG ORAL TABLET 835280 IBUPROFEN Inactive FLUTICASONE PROPIONATE 50 MCG/ACT NASAL SUSPENSION 2 sprays each nostril qDay x 30 days FLUTICASONE PROPIONATE 50 MCG/ACT NASAL SUSPENSION 7696227 FLUTICASONE PROPIONATE Inactive EQL TRUETEST TEST IN [...] at HS ZYPREXA 7.5 MG ORAL TABLET 709364 OLANZAPINE Inactive THIOTHIXENE 5 MG ORAL CAPSULE by mouth twice a day THIOTHIXENE 5 MG ORAL CAPSULE 478599 THIOTHIXENE Inactive UROXATRAL 10 MG ORAL TABLET EXTENDED RELEASE 24 HOUR Take 1 tablet by mouth daily UROXATRAL 10 MG ORAL TABLET EXTENDED RELEASE 24 HOUR ALFUZOSIN HCL Inactive ACYCLOVIR 400 MG ORAL TABLET 1 pill three times daily x 5 days, for cold sore outbreak ACYCLOVIR 400 MG ORAL TABLET 441639 ACYCLOVIR Inactive TRUETEST TEST IN VITRO STRIP check sugars 4x/day TRUETEST TEST IN VITRO STRIP GLUCOSE BLOOD Inactive HUMALOG 100 UNIT/ML SUBCUTANEOUS SOLUTION Take 20 units with breakfast, 10u with lunch and suppetr. HUMALOG 100 UNIT/ML SUBCUTANEOUS SOLUTION INSULIN LISPRO (HUMAN) Inactive CYCLOBENZAPRINE HCL 10 MG ORAL TABLET 1 tablet by mouth three times daily, scheduled CYCLOBENZAPRINE HCL 10 MG ORAL TABLET 686670 CYCLOBENZAPRINE HCL Inactive ACCU-CHEK ROSA IN VITRO STRIP use strips with device to check blood sugars 3 times daily ACCU-CHEK ROSA IN VITRO STRIP GLUCOSE BLOOD Inactive ACCU-CHEK ROSA DEVICE Use device to check blood sugars ACCU-CHEK ROSA DEVICE BLOOD GLUCOSE MONITORING SUPPL Inactive FLUVOXAMINE MALEATE 100 MG ORAL TABLET Take 1/2 tab at noon 03/04 FLUVOXAMINE MALEATE 100 MG ORAL TABLET 358426 FLUVOXAMINE MALEATE Inactive FLUVOXAMINE MALEATE 100 MG ORAL TABLET Take one (1) tablet by mouth am, 1/2 at noon FLUVOXAMINE MALEATE 100 MG ORAL TABLET 472048 FLUVOXAMINE MALEATE Inactive BACTROBAN 2 % EXTERNAL CREAM Apply to affected area BID for up to 10 days BACTROBAN 2 % EXTERNAL CREAM 602493 MUPIROCIN CALCIUM Inactive NOVOFINE 32G X 6 MM use one four times per day NOVOFINE 32G X 6 MM INSULIN PEN NEEDLE Inactive TRAZODONE HCL 100 MG ORAL TABLET 1 tab by mouth for sleep TRAZODONE HCL 100 MG ORAL TABLET 008785 TRAZODONE HCL Inactive LOVAZA 1 GM ORAL CAPSULE 4 daily (for triglycerides) LOVAZA 1 GM ORAL CAPSULE 149209 [id number] ETHYL ESTERS Inactive METFORMIN HCL ER 500 [...] bladder TOLTERODINE TARTRATE 2 MG ORAL TABLET 666293 TOLTERODINE TARTRATE Inactive COLACE 100 MG ORAL CAPSULE 1 pill by mouth twice daily, for constipation 2014 COLACE 100 MG ORAL CAPSULE 8642552 DOCUSATE SODIUM Inactive LOMOTIL 2.5-0.025 MG ORAL TABLET take 1-2 tabs PO after each stool, no more than 8 in 24 hours LOMOTIL 2.5-0.025 MG ORAL TABLET 9593515 DIPHENOXYLATE-ATROPINE Inactive ZOFRAN 4 MG ORAL TABLET 1 po q4hr PRN Nausea ZOFRAN 4 MG ORAL TABLET 005877 ONDANSETRON HCL Inactive HYDROCODONE-ACETAMINOPHEN 5-325 MG ORAL TABLET 2 tabs by mouth three times daily for pain HYDROCODONE-ACETAMINOPHEN 5-325 MG ORAL TABLET 182119 HYDROCODONE-ACETAMINOPHEN Inactive ZOLPIDEM TARTRATE 10 MG ORAL TABLET take at bedtime ZOLPIDEM TARTRATE 10 MG ORAL TABLET 361480 ZOLPIDEM TARTRATE Inactive LISINOPRIL 20 MG ORAL TABLET 1 BID LISINOPRIL 20 MG ORAL TABLET 504591 LISINOPRIL Inactive TRAVATAN Z 0.004 % OPHTHALMIC SOLUTION 1 gtt each eye daily TRAVATAN Z 0.004 % OPHTHALMIC SOLUTION TRAVOPROST Inactive LATUDA 60 MG ORAL TABLET Take one by mouth daily LATUDA 60 MG ORAL TABLET LURASIDONE HCL Inactive FLUVOXAMINE MALEATE 50 MG ORAL TABLET 1 tab by mouth daily 04/01 FLUVOXAMINE MALEATE 50 MG ORAL TABLET 956461 FLUVOXAMINE MALEATE Inactive LEVEMIR FLEXTOUCH 100 UNIT/ML [...] 30G 3 a day TRUEPLUS LANCETS 30G [id number] LANCETS Inactive AMITIZA 24 MCG ORAL CAPSULE [...] noon FLUVOXAMINE MALEATE 100 MG ORAL TABLET 377487 FLUVOXAMINE MALEATE Inactive FLONASE ALLERGY RELIEF 50 MCG/ACT NASAL SUSPENSION One spray each nostril BID x 1 week then daily FLONASE ALLERGY RELIEF 50 MCG/ACT NASAL SUSPENSION 5007155 FLUTICASONE PROPIONATE Inactive IMODIUM A-D 2 MG ORAL TABLET 1 tab QID as needed IMODIUM A-D 2 MG ORAL TABLET 920390 LOPERAMIDE HCL Inactive MYLANTA GAS RELIEF MAXIMUM STR 125 MG ORAL CAPSULE 30cc every 4 hours prn MYLANTA GAS RELIEF MAXIMUM STR 125 MG ORAL CAPSULE SIMETHICONE Inactive TRUEPLUS LANCETS 30G 3x a day TRUEPLUS LANCETS 30G [id number] LANCETS Inactive TRUE METRIX BLOOD GLUCOSE TEST [...] headaches TRAZODONE HCL 100 MG ORAL TABLET 522969 TRAZODONE HCL Inactive TYLENOL 8 HOUR 650 [...] evening TAMSULOSIN HCL 0.4 MG ORAL CAPSULE 669698 TAMSULOSIN HCL Inactive [facility] MELATONIN 3 MG ORAL TABLET give 1 tab by mouth at HS [facility] MELATONIN 3 MG ORAL TABLET 736163 MELATONIN Inactive SEROQUEL 100 MG ORAL TABLET 1 tab daily SEROQUEL 100 MG ORAL TABLET 392506 QUETIAPINE FUMARATE Inactive AMARYL 2 MG ORAL TABLET give 2.5 tabs PO daily AMARYL 2 MG ORAL TABLET 485312 GLIMEPIRIDE Inactive SEROQUEL 25 MG ORAL TABLET Take two tabs by mouth in the morning, take 4 tablets at night SEROQUEL 25 MG ORAL TABLET 129766 QUETIAPINE FUMARATE Inactive QUETIAPINE FUMARATE 25 MG ORAL TABLET 2 tabs BID QUETIAPINE FUMARATE 25 MG ORAL TABLET 650723 QUETIAPINE FUMARATE Inactive QUETIAPINE FUMARATE 100 MG ORAL TABLET 1 tab PO at HS QUETIAPINE FUMARATE 100 MG ORAL TABLET 554960 QUETIAPINE FUMARATE Inactive LATUDA 40 MG ORAL TABLET 1.5 tab by mouth in the afternoon 05/23 LATUDA 40 MG ORAL TABLET LURASIDONE HCL Inactive TOPAMAX 25 MG ORAL TABLET 1 tab BID PRN TOPAMAX 25 MG ORAL TABLET 206221 TOPIRAMATE Inactive EFFEXOR XR 150 MG ORAL [...] a day CEFDINIR 300 MG ORAL CAPSULE 355954 CEFDINIR Inactive AZITHROMYCIN 500 MG INTRAVENOUS SOLUTION RECONSTITUTED 1 po q day AZITHROMYCIN 500 MG INTRAVENOUS SOLUTION RECONSTITUTED [id number] AZITHROMYCIN Inactive AMOXICILLIN 500 MG ORAL CAPSULE 2 po BID x 10 days AMOXICILLIN 500 MG ORAL CAPSULE 173553 AMOXICILLIN Inactive PENICILLIN V POTASSIUM 500 MG ORAL TABLET 1 pill by mouth three times daily PENICILLIN V POTASSIUM 500 MG ORAL TABLET 338362 PENICILLIN V POTASSIUM Inactive KEFLEX 500 MG ORAL CAPSULE 1 po BID x 7 days KEFLEX 500 MG ORAL CAPSULE 826085 CEPHALEXIN Inactive Immunizations Vaccine Administration Date Value [...] Fluvirin, Fluarix, Agriflu(>=18 yo)) Fluzone (>3 yrs.) [ZNT608] Influenza, seasonal, injectable pneumococcal immunization administered Pneumovax [...] ... - Chemistry sodium, serum 135 mmol/L 830-314 7353/08/22 carbon dioxide, venous blood 28.4 mmol/L 21.0-32.0 [...] mg/g {creat} 0-29 cholesterol, serum 263 mg/dL 719-224 3804/08/22 triglyceride, serum, fasting 1312 mg/dL 30-200 HDL [...] ordered Encounters Code Encounter Date Provider Facility CPT-41792 [id number] Vst-Est Level IV 15:10:01 [employer] Mason Loredo MD [facility] CPT-28184 [id number] Vst-Est Level III 11:00:25 CDT Shavonne Feliciano PA-C [facility] CPT-87392 Level 3 Est. Patient 09:12:14 [employer] Mima Erazo [facility] [place] CPT-98401 Level 3 Est. Patient 16:52:51 CDT Vanessa Hickey MD [facility] CPT-91432 Level 3 Est. Patient 17:40:16 CDT Mima Erazo [facility] [place] CPT-33066 Level 3 Est. Patient 14:34:52 CDT Vanessa Hickey MD [facility] CPT-82622 Level 3 Est. Patient 16:27:51 CDT Mima Erazo [facility] CPT-94641 Level 3 Est. Patient 14:39:00 [employer] Vanessa Hickey MD [facility]-26706 Level 2 Est. Patient 18:43:34 CDT Mima Erazo [facility] CPT-46507 Level 3 Est. Patient 16:22:09 CDT Cherelle Avila [facility] CPT-77476 Level 4 Est. Patient 17:55:14 CDT Mima Erazo [facility] CPT-53775 Level 2 Est. Patient 17:13:21 CDT Alina Castaneda MD [facility]-78866 Level 3 Est. Patient 14:46:15 CDT Vanessa Hickey MD [facility]-57224 Level 3 Est. Patient 09:34:56 CDT Alina Castaneda MD [facility]-04529 Level 3 Est. Patient 21:40:19 CDT Mima Erazo [facility]-97472 Level 3 Est. Patient 09:26:40 CDT Brook[place]ivia Araceli [facility]-23400 Level 3 Est. Patient 12:36:43 CDT Vanessa Hickey MD [facility]-57992 Level 3 Est. Patient 12:57:49 CDT Vanessa Hickey MD [facility]-94080 Level 3 Est. Patient 00:28:25 CDT Alina Castaneda MD [facility]21833 Level 2 Est. Patient 12:52:14 CDT Alina Castaneda MD PhD [facility]-51045 Level 3 Est. Patient 11:51:18 [employer] Alina Castaneda MD [facility]-41680 Level 3 Est. Patient 10:09:22 [employer] Alina Castaneda MD [facility]-05921 Level 3 Est. Patient 14:36:26 [employer] Marvel [facility]-52407 Level 3 Est. Patient 13:34:47 [employer] Alina Castaneda MD [facility]73846 Level 3 Est. Patient 19:52:08 [employer] Alina Castaneda MD [facility]58610 Level 3 Est. Patient 10:01:51 [employer] Brooksjohn [facility]-13543 Level 3 Est. Patient 21:54:06 CDT Vanessa Hickey MD [facility]-83660 Level 3 Est. Patient 08:54:46 CDT Alina Castaneda MD [facility]-19689 Level 3 Est. Patient 09:32:11 CDT Marvel [facility]-34334 Level 3 Est. Patient 12:02:49 CDT Alina Castaneda MD [facility]-68375 Level 3 Est. Patient 19:17:33 CDT Alina Castaneda MD [facility]-48545 Level 3 Est. Patient 13:19:10 CDT Marvel [facility]-23551 Level 3 Est. Patient 08:20:05 CDT Alina Castaneda MD [facility]-37654 Level 3 Est. Patient 15:17:18 CDT Alina Castaneda MD [facility]62106 Level 3 Est. Patient 14:25:36 [employer] Marvel [facility]-18320 Level 3 Est. Patient 10:09:15 [employer] Marvel Araceli [facility] CPT-62595 Level 3 Est. Patient 21:28:43 CDT Alina Castaneda MD [facility]-55168 Level 3 Est. Patient 15:20:11 [facility]12671 Level 4 Est. Patient 19:08:12 CDT Alina Castaneda MD [facility]-54883 Level 3 Est. Patient 15:06:39 [facility]T [facility]-12461 Level 4 Est. Patient 17:48:15 CDT Alina Castaneda MD [facility]-48300 Level 3 Est. Patient 14:53:49 CDT Alina Castaneda MD [facility]-38135 Level 3 Est. Patient 09:35:16 CDT Alina Castaneda MD [facility]-30134 Level 3 Est. Patient 12:23:22 CDT Alina Castaneda MD [facility]-33638 Level 3 Est. Patient 16:19:15 CDT Alina Castaneda MD [facility]-93692 Level 3 Est. Patient 21:39:56 [employer] Alina Castaneda MD [facility]-88680 Level 4 Est. Patient 14:12:56 [employer] Alina Castaneda MD [facility]-71805 Level 2 Est. Patient 15:34:57 [employer] Alina Castaneda MD [facility]-11105 Level 3 Est. Patient 12:17:04 [employer] Alina Castaneda MD [facility]-27067 Level 3 Est. Patient 09:18:18 [employer] Brooksjohn [facility]-49893 Level 2 Est. Patient 21:50:24 CDT Alina Castaneda MD [facility]-77957 Level 3 Est. Patient 09:17:28 CDT Marvel [facility]-85352 Level 4 Est. Patient 18:54:02 CDT Alina Castaneda MD [facility]67957 Level 3 Est. Patient 10:47:10 CDT Alina Castaneda MD [facility]93095 Level 3 Est. Patient 09:22:20 CDT Marvel [facility]-83449 Level 3 Est. Patient 16:39:43 [facility]T [facility]-45802 Level 3 Est. Patient 16:05:16 CDT Alina Castaneda MD [facility]-74551 Level 3 Est. Patient 00:29:15 CDT Alina Castaneda MD [facility]-49550 Level 3 Est. Patient 10:49:22 [employer] Marvel [facility]-31345 Level 3 Est. Patient 21:30:19 [employer] Alina Castaneda MD [facility]-85219 Level 4 Est. Patient 17:04:11 [employer] Marvel [facility]-51260 Level 3 Est. Patient 15:34:11 [employer] Marvel [facility]-61384 Level 2 Est. Patient 12:51:58 [employer] Alina Castaneda MD [facility]41867 Level 3 Est. Patient 13:20:01 [employer] Alina Castaneda MD PhD [facility] CPT-17564 Level 3 Est. Patient 09:23:35 CDT Alina Castaneda MD PhD [facility] Procedures Code Procedure Name Date Entry Date Standard Description CPT-G0439 [facility] Annual Wellness Exam 15:49:52 [employer] CPT-63039 Level 3 Skilled Nursing 13:20:19 CDT CPT-TCMM Transitional Care Mgmt-Moderate 12:32:19 CDT CPT-48192 Level 2 Skilled Nursing 09:01:11 CDT CPT-04205 HGBA1C - LAB USE ONLY 09:30:27 [employer] CPT-46659 BMP - LAB USE ONLY 09:30:27 [employer] CPT-24711 Venipuncture Draw Fee 09:30:26 [employer] CPT-TCMM Transitional Care Mgmt-Moderate 10:25:31 CDT CPT-55244 Bladder Scan 14:34:53 CDT CPT-00668 Bladder Scan 14:39:01 [employer] CPT-TCMM Transitional Care Mgmt-Moderate 10:30:19 [employer] CPT-61833 Bladder Scan 12:36:44 CDT CPT-76525 Bladder Scan 21:54:06 CDT CPT-G0008 Administration of Influenza Virus Vaccine 13:05:26 CDT CPT-85100 Fluzone Quadrivalent Intramuscular Suspension 0.5 ML 13: 05:26 CDT CPT-41157 Administration single or combination vaccine inc oral 11 :49:51 CDT CPT-40453 Pneumovax 11:49:51 CDT CPT-37165 Ribs unilateral 2V 12:37:22 [employer] CPT-38683 Chest 2V Frontal and Lat 17:15:26 CDT CPT-86417 Abx/Therapy Injection 18:54:02 CDT CPT-J0696 Rocephin 1000 mg (Ceftriaxone) 16:00:32 CDT CPT-70405 Chest 2V Frontal and Lat 15:26:45 CDT CPT-03235 Chest 2V Frontal and Lat 10:23:27 CDT CPT-08696 Venipuncture Draw Fee 10:11:00 CDT CPT-41677 Administration single or combination vaccine inc oral 11 :56:38 CDT CPT-05115 Influenza split virus > age 3 11:56:38 CDT CPT-49842 Venipuncture Draw Fee 08:49:54 [employer] CPT-66193 EKG Trac and Interp 17:54:19 [employer]
--- OUTSIDE RECORDS SUMMARY | 2018-07-02 15:14 | XMS REPORT | Clinical Summary ---
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 Recheck labs in 3 months ATORVASTATIN CALCIUM 55132242401 Active Mya Ledezma MA Active VERAPAMIL HCL ER 180 MG ORAL TABLET EXTENDED RELEASE 1 tab BID VERAPAMIL HCL 02393260274 Active Shavonne Feliciano PA-C Active SEROQUEL 25 MG ORAL TABLET Take two tabs by mouth in the morning, take 4 tablets at night QUETIAPINE FUMARATE 95322542748 No Longer Active Shavonne Feliciano PA-C Active EFFEXOR XR 150 MG ORAL CAPSULE EXTENDED RELEASE 24 HOUR 1 tab daily VENLAFAXINE HCL 02705903248 Active Shavonne Feliciano PA-C Active QUETIAPINE FUMARATE 25 MG ORAL TABLET 2 tabs BID QUETIAPINE FUMARATE 73916875294 Active Shavonne Feliciano PA-C Active QUETIAPINE FUMARATE 100 MG ORAL TABLET 1 tab PO at HS QUETIAPINE FUMARATE 50875384644 Active Shavonne Feliciano PA-C Active AMARYL 2 MG ORAL TABLET give 2.5 tabs PO daily GLIMEPIRIDE 79197012661 No Longer Active Shavonne Feliciano PA-C Active AMARYL 2 MG ORAL TABLET give 2 tabs PO in the morning GLIMEPIRIDE 16754744687 Active Shavonne Feliciano PA-C Active FENOFIBRATE 145 MG ORAL TABLET 1 tab PO in the morning FENOFIBRATE 61404521127 Active Shavonne Feliciano PA-C Active SEROQUEL 100 MG ORAL TABLET 1 tab daily QUETIAPINE FUMARATE 44279983951 No Longer Active Shavonne Feliciano PA-C Active [facility] MELATONIN 3 MG ORAL TABLET give 1 tab by mouth at HS MELATONIN 13371868814 No Longer Active Gabrielle Marquez MA Active NOVOLOG FLEXPEN 100 UNIT/ML SUBCUTANEOUS SOLUTION PEN-INJECTOR sliding scale INSULIN ASPART 11844403890 Active Gabrielle Marquez MA Active METFORMIN HCL 1000 MG ORAL TABLET 1 tab by mouth BID METFORMIN HCL 21710139715 Active Gabrielle Marquez MA Active [facility] MELATONIN 3 MG ORAL TABLET 1 tab nightly MELATONIN 67358010295 Active Gabrielle Marquez MA Active TAMSULOSIN HCL 0.4 MG ORAL CAPSULE give 2 capsules PO each evening TAMSULOSIN HCL 84050200612 No Longer Active Gabrielle Marquez MA Active VITAMIN D 2000 UNIT ORAL CAPSULE Take one by mouth daily CHOLECALCIFEROL 38653255099 No Longer Active Gabrielle Marquez MA Active LATUDA 40 MG ORAL TABLET 1.5 tab by mouth in the afternoon LURASIDONE HCL 41162921773 Active Gabrielle Marquez MA Active LEVEMIR 100 UNIT/ML SUBCUTANEOUS SOLUTION 10 u at bedtime INSULIN DETEMIR 89871905027 Active Gabrielle Marquez MA Active TAMSULOSIN HCL 0.4 MG ORAL CAPSULE 2 every night for urine flow TAMSULOSIN HCL 29460519508 Active Gabrielle Marquez MA Active DIVALPROEX SODIUM 125 MG ORAL TABLET DELAYED RELEASE 1 tab each morning 02/17 DIVALPROEX SODIUM 18224385934 Active Gabrielle Marquez MA Active D 1000 TABLET 2 tab by mouth BID CHOLECALCIFEROL TABS 75113075325 Active Gabrielle Marquez MA Active ALIGN 4 MG ORAL CAPSULE 1 tab at hs PROBIOTIC PRODUCT 96459772736 Active Gabrielle Marquez MA Active CLONAZEPAM 1 MG ORAL TABLET 1 pill by mouth two times daily CLONAZEPAM 82672516607 Active Gabrielle Marquez MA Active OCEAN NASAL SPRAY SOLUTION 2 sprays in both nostrils every 8 hours as needed for dry mucous membranes SALINE SOLN 71943292174 Active Mason Loredo MD Active BETHANECHOL CHLORIDE 25 MG ORAL TABLET Take 1 tablet mouth four times a day BETHANECHOL CHLORIDE 27312510565 Active Mason Loredo MD Active [facility] LUBRICANT EYE DROPS 0.4-0.3 % OPHTHALMIC SOLUTION POLYETHYL GLYCOL-PROPYL GLYCOL 58857271136 No Longer Active Mason Loredo MD Active TYLENOL 8 HOUR 650 MG ORAL TABLET EXTENDED RELEASE 1 tab QID prn ACETAMINOPHEN 62705186334 No Longer Active Mason Loredo MD Active TOPAMAX 25 MG ORAL TABLET 1 tab BID PRN TOPIRAMATE 44109858381 Active Mason Loredo MD Active TIMOPTIC OCUDOSE 0.5 % OPHTHALMIC SOLUTION instill one drop into both eyes q12H TIMOLOL MALEATE 92778054313 Active Mason Loredo MD Active TRAZODONE HCL 100 MG ORAL TABLET 1 every night to prevent headaches TRAZODONE HCL 66087618432 No Longer Active Mason Loredo MD Active TRAVATAN Z 0.004 % OPHTHALMIC SOLUTION 1 drop each eye daily 2017 TRAVOPROST 47300063322 No Longer Active Mason Loredo MD Active LATUDA 60 MG ORAL TABLET 1 tab daily LURASIDONE HCL 65657065322 No Longer Active Mason Loredo MD Active MORPHINE SULFATE ER 30 MG ORAL TABLET EXTENDED RELEASE Take one capsule BID MORPHINE SULFATE 04665265434 No Longer Active Mason Loredo MD Active TRUE METRIX BLOOD GLUCOSE TEST IN VITRO STRIP Check blood sugars 3x/day. 2015 GLUCOSE BLOOD 30071044663 No Longer Active Mason Loredo MD Active TRUEPLUS LANCETS 30G 3x a day LANCETS 98160157583 No Longer Active Mason Loredo MD Active MYLANTA GAS RELIEF MAXIMUM STR 125 MG ORAL CAPSULE 30cc every 4 hours prn SIMETHICONE 38090955098 No Longer Active Mason Loredo MD Active IMODIUM A-D 2 MG ORAL TABLET 1 tab QID as needed LOPERAMIDE HCL 94887975437 No Longer Active Mason Loredo MD Active FLONASE ALLERGY RELIEF 50 MCG/ACT NASAL SUSPENSION One spray each nostril BID x 1 week then daily FLUTICASONE PROPIONATE 70110003402 No Longer Active Mason Loredo MD Active FLUVOXAMINE MALEATE 100 MG ORAL TABLET take one tab every AM et HS, and take 1 /2 tab at noon FLUVOXAMINE MALEATE 82012701858 No Longer Active Mason Loredo MD Active BD PEN NEEDLE MINI U/F 31G X 5 MM 4 a day INSULIN PEN NEEDLE 09481559010 No Longer Active Mason Loredo MD Active AMITIZA 24 MCG ORAL CAPSULE Take one capsule BID for constipation LUBIPROSTONE 78154081579 No Longer Active Mason Loredo MD Active TRUEPLUS LANCETS 30G 3 a day LANCETS 32684005138 No Longer Active Mason Loredo MD Active CORICIDIN HBP CONGESTION/COUGH 10-200 MG ORAL CAPSULE Take as directed on box as needed for cold/flu symptoms DEXTROMETHORPHAN- GUAIFENESIN 28513607299 No Longer Active Mason Loredo MD Active OMEGA-3 300 MG ORAL CAPSULE 4 caps by mouth daily OMEGA-3 FATTY ACIDS 39966613396 No Longer Active Mason Loredo MD Active HUMALOG KWIKPEN 100 UNIT/ML SUBCUTANEOUS SOLUTION PEN-INJECTOR sliding scale if needed INSULIN LISPRO (HUMAN) 02039969891 No Longer Active Mason Loredo MD Active TRUETEST TEST IN VITRO STRIP check blood sugars 3x/day GLUCOSE BLOOD 32269129616 No Longer Active Mason Loredo MD Active ALFUZOSIN HCL ER 10 MG ORAL TABLET EXTENDED RELEASE 24 HOUR 1 tablet daily ALFUZOSIN HCL 21553834965 No Longer Active Mason Loredo MD Active BD INSULIN SYRINGE 28G X 1/2" 1 ML 1 four times per day INSULIN SYRINGE-NEEDLE U-100 93855875549 No Longer Active Mason Loredo MD Active LEVEMIR FLEXTOUCH 100 UNIT/ML SUBCUTANEOUS SOLUTION PEN-INJECTOR 60 units SQ each evening, for diabetes INSULIN DETEMIR 83882779765 No Longer Active Mason Loredo MD Active LACTULOSE 20 GM/30ML ORAL SOLUTION give 30 Ml PO BID PRN LACTULOSE 08108161916 Active Mason Loerdo MD Active COLACE 100 MG ORAL CAPSULE 1 tab BID PRN DOCUSATE SODIUM 73552448066 Active Mason Loredo MD Active LATANOPROST 0.005 % OPHTHALMIC SOLUTION instill 1 drop in both eyes at bed time LATANOPROST 35869753024 Active Mason Loredo MD Active MIRALAX ORAL POWDER 17g by mouth q12h, for constipation POLYETHYLENE GLYCOL 3350 37773645044 Active Mason Loredo MD Active IBUPROFEN 400 MG ORAL TABLET 1 tab Q6H PRN IBUPROFEN 51139948358 Active Mason Loredo MD Active FLUVOXAMINE MALEATE 50 MG ORAL TABLET 1 tab by mouth daily 04/01 FLUVOXAMINE MALEATE 65721332332 No Longer Active Mima Erazo APRN Active TRUE METRIX METER w/Device KIT Check blood sugars 3x/day BLOOD GLUCOSE MONITORING SUPPL 10092683268 Active Marvel Mackenzieglestela 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 LATUDA 60 MG ORAL TABLET Take one by mouth daily LURASIDONE HCL 34842445412 No Longer Active Mima Erazo APRN Active [facility] MILK OF MAGNESIA 400 MG/5ML ORAL SUSPENSION 30ml by mouth bid prn MAGNESIUM HYDROXIDE 69934054661 Active Mason Loredo MD Active TRAVATAN Z 0.004 % OPHTHALMIC SOLUTION 1 gtt each eye daily TRAVOPROST 93021509386 No Longer Active Mason Loredo MD Active LISINOPRIL 20 MG ORAL TABLET 1 BID LISINOPRIL 21218054819 No Longer Active Mason Loredo MD Active ZOLPIDEM TARTRATE 10 MG ORAL TABLET take at bedtime ZOLPIDEM TARTRATE 24729357834 No Longer Active Mason Loredo MD Active HYDROCODONE-ACETAMINOPHEN 5-325 MG ORAL TABLET 2 tabs by mouth three times daily for pain HYDROCODONE-ACETAMINOPHEN 90502072246 No Longer Active Mason Loredo MD Active ZOFRAN 4 MG ORAL TABLET 1 po q4hr PRN Nausea ONDANSETRON HCL 91694366885 No Longer Active Mason Loredo MD Active LOMOTIL 2.5-0.025 MG ORAL TABLET take 1-2 tabs PO after each stool, no more than 8 in 24 hours DIPHENOXYLATE-ATROPINE 18853449393 No Longer Active Mason Loredo MD Active COLACE 100 MG ORAL CAPSULE 1 pill by mouth twice daily, for constipation 2014 DOCUSATE SODIUM 63650359277 No Longer Active Mima Erazo APRN Active TOLTERODINE TARTRATE 2 MG ORAL TABLET 1 pill twice daily, for bladder TOLTERODINE TARTRATE 10637862416 No Longer Active Vanessa Hickey MD Active AMITIZA 24 MCG ORAL CAPSULE Take one capsule BID for constipation. LUBIPROSTONE 10266964408 No Longer Active Vanessa Hickey MD Active METOPROLOL SUCCINATE ER 100 MG ORAL TABLET EXTENDED RELEASE 24 HOUR 1 by mouth daily for blood pressure METOPROLOL SUCCINATE 41504029543 No Longer Active Grace Nascimento RMA Active METFORMIN HCL ER 500 MG ORAL TABLET EXTENDED RELEASE 24 HOUR Take three tablets by mouth everyday METFORMIN HCL 22080710163 No Longer Active Grace Azam RMA Active LOVAZA 1 GM ORAL CAPSULE 4 daily (for triglycerides) [id number] ETHYL ESTERS 44729427099 No Longer Active Grace Azam RMA Active TRAZODONE HCL 100 MG ORAL TABLET 1 tab by mouth for sleep TRAZODONE HCL 11976250282 No Longer Active Rgace Azam RMA Active NOVOFINE 32G X 6 MM use one four times per day INSULIN PEN NEEDLE 44882236774 No Longer Active Grace Azam RMA Active BACTROBAN 2 % EXTERNAL CREAM Apply to affected area BID for up to 10 days MUPIROCIN CALCIUM 15865735977 No Longer Active Grace Azam RMA Active KEFLEX 500 MG ORAL CAPSULE 1 po BID x 7 days CEPHALEXIN 10478173573 No Longer Active Cherelle Aivla APRN Active FLUVOXAMINE MALEATE 100 MG ORAL TABLET Take one (1) tablet by mouth am, 1/2 at noon FLUVOXAMINE MALEATE 31479858480 No Longer Active Mima Erazo ALBAN Active FLUVOXAMINE MALEATE 100 MG ORAL TABLET Take 1/2 tab at noon 03/04 FLUVOXAMINE MALEATE 06989416759 No Longer Active Cherelle Avila ALBAN Active ACCU-CHEK ROSA DEVICE Use device to check blood sugars BLOOD GLUCOSE MONITORING SUPPL 49300999400 No Longer Active Marvel MARROQUIN Active ACCU-CHEK ROSA IN VITRO STRIP use strips with device to check blood sugars 3 times daily GLUCOSE BLOOD 11300157777 No Longer Active Marvel MENDOZAP Active VERAPAMIL HCL ER 180 MG ORAL TABLET EXTENDED RELEASE 1 pill by mouth twice daily, for migraine prevention VERAPAMIL HCL 63635901305 Active Mima Aguilareloinajerrell ALBAN Active CYCLOBENZAPRINE HCL 10 MG ORAL TABLET 1 tablet by mouth three times daily, scheduled CYCLOBENZAPRINE HCL 32553530670 No Longer Active Alina Castaneda MD PhD Active HUMALOG 100 UNIT/ML SUBCUTANEOUS SOLUTION Take 20 units with breakfast, 10u with lunch and suppetr. INSULIN LISPRO (HUMAN) 91348573845 No Longer Active Alina Castaneda MD PhD Active TRUETEST TEST IN VITRO STRIP check sugars 4x/day GLUCOSE BLOOD 52641560332 No Longer Active Alina Castaneda MD PhD Active MORPHINE SULFATE 30 MG ORAL TABLET 1 pill by mouth twice daily, for pain 2013 MORPHINE SULFATE 53460245036 No Longer Active Mason Loredo MD Active ACYCLOVIR 400 MG ORAL TABLET 1 pill three times daily x 5 days, for cold sore outbreak ACYCLOVIR 58651457854 No Longer Active Alina Castaneda MD PhD Active PENICILLIN V POTASSIUM 500 MG ORAL TABLET 1 pill by mouth three times daily PENICILLIN V POTASSIUM 24823062334 No Longer Active Alina Castaneda MD PhD Active UROXATRAL 10 MG ORAL TABLET EXTENDED RELEASE 24 HOUR Take 1 tablet by mouth daily ALFUZOSIN HCL 31991959260 No Longer Active Alina Castaneda MD PhD Active THIOTHIXENE 5 MG ORAL CAPSULE by mouth twice a day THIOTHIXENE 88038508738 No Longer Active Alina Castaneda MD PhD Active ZYPREXA 7.5 MG ORAL TABLET 1 at HS OLANZAPINE 54478293710 No Longer Active Alina Castaneda MD PhD Active DETROL LA 4 MG ORAL CAPSULE EXTENDED RELEASE 24 HOUR Take 1 tablet by mouth daily TOLTERODINE TARTRATE 69987080887 No Longer Active Alina Castaneda MD PhD Active TERESE CONTOUR TEST IN VITRO STRIP monitor blood sugars 3x/day GLUCOSE BLOOD 43477135592 No Longer Active Alina Castaneda MD PhD Active EQL TRUETEST TEST IN VITRO STRIP Test blood sugar TID GLUCOSE BLOOD 84260409771 No Longer Active Alina Castaneda MD PhD Active FLUTICASONE PROPIONATE 50 MCG/ACT NASAL SUSPENSION 2 sprays each nostril qDay x 30 days FLUTICASONE PROPIONATE 37055288125 No Longer Active Alina Castaneda MD PhD Active IBUPROFEN 200 MG ORAL TABLET 1 Q 6 hr. 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 PRN ACETAMINOPHEN 80591225556 No Longer Active Maliheh Ziglari ASSISTANT 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 ORPHENADRINE CITRATE ER 100 MG ORAL TABLET EXTENDED RELEASE 12 HOUR 1 every 12 hr. as needed ORPHENADRINE CITRATE 34347017835 No Longer Active Alina Castaneda MD PhD Active NIACIN ER 500 MG ORAL TABLET EXTENDED RELEASE 2 qHS NIACIN 50650876160 No Longer Active Alina Castaneda MD PhD Active AMOXICILLIN 500 MG ORAL CAPSULE 2 po BID x 10 days AMOXICILLIN 56756109034 No Longer Active Alina Castaneda MD PhD Active HYDROCODONE-ACETAMINOPHEN 7.5-325 MG ORAL TABLET 1 four times a day as needed for pain HYDROCODONE-ACETAMINOPHEN 97115122989 No Longer Active Alina Castaneda MD PhD Active DOXEPIN HCL 10 MG ORAL CAPSULE Take 1 tablet by mouth daily DOXEPIN HCL 54307363932 No Longer Active Salina Han [facility] Active NAVANE 10 MG CAPS 1/2 tablet twice a day THIOTHIXENE No Longer Active Salina Emely [facility] Active CYCLOBENZAPRINE HCL 10 MG ORAL TABLET 1/2 tablet by mouth every 8 hours as needed for muscle spasms CYCLOBENZAPRINE HCL 58472889649 No Longer Active Alina Castaneda MD PhD Active BACTROBAN 2 % EXTERNAL CREAM apply to ear and nose twice daily MUPIROCIN CALCIUM 81408231301 No Longer Active Alina Castaneda MD PhD Active HYDROCODONE-ACETAMINOPHEN 5-325 MG ORAL TABLET take one tablet by mouth every four hours as needed for pain HYDROCODONE-ACETAMINOPHEN 84296278998 No Longer Active Alina Castaneda MD PhD Active ZYPREXA 5 MG ORAL TABLET take one tablet by mouth every evening OLANZAPINE 58880761693 No Longer Active Alina Castaneda MD PhD Active ALBUTEROL SULFATE (2.5 MG/3ML) 0.083% INHALATION NEBULIZATION SOLUTION one vial per nebulizer TID and PRN cough/soa ALBUTEROL SULFATE 46643870585 No Longer Active Alina Castaneda MD PhD Active GUAIFENESIN ER 600 MG ORAL TABLET EXTENDED RELEASE 12 HOUR 1 tablet by mouth twice daily if needed for cough GUAIFENESIN 66230481163 No Longer Active Marvel MARROQUIN Active AZITHROMYCIN 500 MG INTRAVENOUS SOLUTION RECONSTITUTED 1 po q day AZITHROMYCIN 21602537010 No Longer Active Alina Castaneda MD PhD Active PROMETHAZINE-CODEINE 6.25-10 MG/5ML ORAL SYRUP 1 tsp po q 6 hours prn cough PROMETHAZINE-CODEINE 74287925985 No Longer Active Alina Castaneda MD PhD Active CEFDINIR 300 MG ORAL CAPSULE by mouth twice a day CEFDINIR 37049713467 No Longer Active Alina Castaneda MD PhD Active METFORMIN HCL ER 500 MG ORAL TABLET EXTENDED RELEASE 24 HOUR Take 3 tablets by mouth everyday METFORMIN HCL 66239338022 No Longer Active Alina Castaneda MD PhD Active LEVEMIR 100 UNIT/ML SUBCUTANEOUS SOLUTION 90 units SQ qHS INSULIN DETEMIR 60840055055 No Longer Active Marvel MARROQUIN Active TOPROL XL 100 MG ORAL TABLET EXTENDED RELEASE 24 HOUR 1 @ HS METOPROLOL SUCCINATE 97779562736 No Longer Active Marvel MARROQUIN Active ALLOPURINOL 300 MG ORAL TABLET Take one by mouth daily ALLOPURINOL 55739174981 Active Mima Erazo CALENDER WIND UP HELPER Active ZYPREXA 10 MG ORAL TABLET Take one by mouth daily OLANZAPINE 15893648211 No Longer Active Alina Castaneda MD PhD Active NOVOLOG 100 UNIT/ML SUBCUTANEOUS SOLUTION 40 units with every meal INSULIN ASPART 82760348111 No Longer Active Alina Castaneda MD PhD Active VERAPAMIL HCL ER 120 MG ORAL TABLET EXTENDED RELEASE 1 qPM 09/08 VERAPAMIL HCL 52223708077 No Longer Active Salina ROJAS Active ZYPREXA 15 MG ORAL TABLET Take 1 tablet by mouth daily OLANZAPINE 24246933048 No Longer Active Marvel MARROQUIN Active ALBUTEROL SULFATE (2.5 MG/3ML) 0.083% INHALATION NEBULIZATION SOLUTION 1 neb tid and prn cough ALBUTEROL SULFATE 14515890028 No Longer Active Alina Castaneda MD PhD Active LANTUS 100 UNIT/ML SUBCUTANEOUS SOLUTION 60 units sq q hs INSULIN GLARGINE 60137791731 No Longer Active CRYSTAL Suarez Active ALBUTEROL SULFATE (2.5 MG/3ML) 0.083% INHALATION NEBULIZATION SOLUTION 1 neb tid and prn cough ALBUTEROL SULFATE (2.5 MG/3ML) 0.083% INHALATION NEBULIZATION SOLUTION 654467 ALBUTEROL SULFATE Inactive ZYPREXA 15 MG ORAL TABLET Take 1 tablet by mouth daily ZYPREXA 15 MG ORAL TABLET 372687 OLANZAPINE Inactive VERAPAMIL HCL ER 120 MG ORAL TABLET EXTENDED RELEASE 1 qPM 09/08 VERAPAMIL HCL ER 120 MG ORAL TABLET EXTENDED RELEASE VERAPAMIL HCL Inactive ZYPREXA 10 MG ORAL TABLET Take one by mouth daily ZYPREXA 10 MG ORAL TABLET 566376 OLANZAPINE Inactive TOPROL XL 100 MG ORAL TABLET EXTENDED RELEASE 24 HOUR 1 @ HS TOPROL XL 100 MG ORAL TABLET EXTENDED RELEASE 24 HOUR METOPROLOL SUCCINATE Inactive LEVEMIR 100 UNIT/ML SUBCUTANEOUS SOLUTION 90 units SQ qHS LEVEMIR 100 UNIT/ML SUBCUTANEOUS SOLUTION INSULIN DETEMIR Inactive PROMETHAZINE-CODEINE 6.25-10 MG/5ML ORAL SYRUP 1 tsp po q 6 hours prn cough PROMETHAZINE-CODEINE 6.25-10 MG/5ML ORAL SYRUP 065226 PROMETHAZINE-CODEINE Inactive GUAIFENESIN ER 600 MG ORAL TABLET EXTENDED RELEASE 12 HOUR 1 tablet by mouth twice daily if needed for cough GUAIFENESIN ER 600 MG ORAL TABLET EXTENDED RELEASE 12 HOUR GUAIFENESIN Inactive ALBUTEROL SULFATE (2.5 MG/3ML) 0.083% INHALATION NEBULIZATION SOLUTION one vial per nebulizer TID and PRN cough/soa ALBUTEROL SULFATE (2.5 MG/3ML) 0.083% INHALATION NEBULIZATION SOLUTION 257167 ALBUTEROL SULFATE Inactive ZYPREXA 5 MG ORAL TABLET take one tablet by mouth every evening ZYPREXA 5 MG ORAL TABLET 931307 OLANZAPINE Inactive HYDROCODONE-ACETAMINOPHEN 5-325 MG ORAL TABLET take one tablet by mouth every four hours as needed for pain HYDROCODONE-ACETAMINOPHEN 5-325 MG ORAL TABLET 779715 HYDROCODONE-ACETAMINOPHEN Inactive BACTROBAN 2 % EXTERNAL CREAM apply to ear and nose twice daily BACTROBAN 2 % EXTERNAL CREAM 908390 MUPIROCIN CALCIUM Inactive CYCLOBENZAPRINE HCL 10 MG ORAL TABLET 1/2 tablet by mouth every 8 hours as needed for muscle spasms CYCLOBENZAPRINE HCL 10 MG ORAL TABLET 300482 CYCLOBENZAPRINE HCL Inactive NAVANE 10 MG CAPS 1/2 tablet twice a day NAVANE 10 MG CAPS THIOTHIXENE Inactive DOXEPIN HCL 10 MG ORAL CAPSULE Take 1 tablet by mouth daily DOXEPIN HCL 10 MG ORAL CAPSULE 1004973 DOXEPIN HCL Inactive HYDROCODONE-ACETAMINOPHEN 7.5-325 MG ORAL TABLET 1 four times a day as needed for pain HYDROCODONE-ACETAMINOPHEN 7.5-325 MG ORAL TABLET 065237 HYDROCODONE-ACETAMINOPHEN Inactive NIACIN ER 500 MG ORAL [...] hr. PRN ACETAMINOPHEN 500 MG ORAL TABLET 298908 ACETAMINOPHEN Inactive SAPHRIS 5 MG SUBLINGUAL TABLET SUBLINGUAL by mouth twice a day SAPHRIS 5 MG SUBLINGUAL TABLET SUBLINGUAL ASENAPINE MALEATE Inactive NIACIN ER 500 MG ORAL TABLET EXTENDED RELEASE 4 qHS (for triglycerides) 01/13 NIACIN ER 500 MG ORAL TABLET EXTENDED RELEASE NIACIN Inactive IBUPROFEN 200 MG ORAL TABLET 1 Q 6 hr. PRN IBUPROFEN 200 MG ORAL TABLET 441284 IBUPROFEN Inactive FLUTICASONE PROPIONATE 50 MCG/ACT NASAL SUSPENSION 2 sprays each nostril qDay x 30 days FLUTICASONE PROPIONATE 50 MCG/ACT NASAL SUSPENSION 0794943 FLUTICASONE PROPIONATE Inactive EQL TRUETEST TEST IN [...] at HS ZYPREXA 7.5 MG ORAL TABLET 317358 OLANZAPINE Inactive THIOTHIXENE 5 MG ORAL CAPSULE by mouth twice a day THIOTHIXENE 5 MG ORAL CAPSULE 838293 THIOTHIXENE Inactive UROXATRAL 10 MG ORAL TABLET EXTENDED RELEASE 24 HOUR Take 1 tablet by mouth daily UROXATRAL 10 MG ORAL TABLET EXTENDED RELEASE 24 HOUR ALFUZOSIN HCL Inactive ACYCLOVIR 400 MG ORAL TABLET 1 pill three times daily x 5 days, for cold sore outbreak ACYCLOVIR 400 MG ORAL TABLET 109101 ACYCLOVIR Inactive TRUETEST TEST IN VITRO STRIP check sugars 4x/day TRUETEST TEST IN VITRO STRIP GLUCOSE BLOOD Inactive HUMALOG 100 UNIT/ML SUBCUTANEOUS SOLUTION Take 20 units with breakfast, 10u with lunch and suppetr. HUMALOG 100 UNIT/ML SUBCUTANEOUS SOLUTION INSULIN LISPRO (HUMAN) Inactive CYCLOBENZAPRINE HCL 10 MG ORAL TABLET 1 tablet by mouth three times daily, scheduled CYCLOBENZAPRINE HCL 10 MG ORAL TABLET 396227 CYCLOBENZAPRINE HCL Inactive ACCU-CHEK ROSA IN VITRO STRIP use strips with device to check blood sugars 3 times daily ACCU-CHEK ROSA IN VITRO STRIP GLUCOSE BLOOD Inactive ACCU-CHEK ROSA DEVICE Use device to check blood sugars ACCU-CHEK ROSA DEVICE BLOOD GLUCOSE MONITORING SUPPL Inactive FLUVOXAMINE MALEATE 100 MG ORAL TABLET Take 1/2 tab at noon 03/04 FLUVOXAMINE MALEATE 100 MG ORAL TABLET 335460 FLUVOXAMINE MALEATE Inactive FLUVOXAMINE MALEATE 100 MG ORAL TABLET Take one (1) tablet by mouth am, 1/2 at noon FLUVOXAMINE MALEATE 100 MG ORAL TABLET 143048 FLUVOXAMINE MALEATE Inactive BACTROBAN 2 % EXTERNAL CREAM Apply to affected area BID for up to 10 days BACTROBAN 2 % EXTERNAL CREAM 109705 MUPIROCIN CALCIUM Inactive NOVOFINE 32G X 6 MM use one four times per day NOVOFINE 32G X 6 MM INSULIN PEN NEEDLE Inactive TRAZODONE HCL 100 MG ORAL TABLET 1 tab by mouth for sleep TRAZODONE HCL 100 MG ORAL TABLET 244208 TRAZODONE HCL Inactive LOVAZA 1 GM ORAL CAPSULE 4 daily (for triglycerides) LOVAZA 1 GM ORAL CAPSULE 709097 [id number]-[id number] ETHYL ESTERS Inactive METFORMIN HCL ER 500 [...] bladder TOLTERODINE TARTRATE 2 MG ORAL TABLET 505403 TOLTERODINE TARTRATE Inactive COLACE 100 MG ORAL CAPSULE 1 pill by mouth twice daily, for constipation 2014 COLACE 100 MG ORAL CAPSULE 9635712 DOCUSATE SODIUM Inactive LOMOTIL 2.5-0.025 MG ORAL TABLET take 1-2 tabs PO after each stool, no more than 8 in 24 hours LOMOTIL 2.5-0.025 MG ORAL TABLET 7672086 DIPHENOXYLATE-ATROPINE Inactive ZOFRAN 4 MG ORAL TABLET 1 po q4hr PRN Nausea ZOFRAN 4 MG ORAL TABLET 357593 ONDANSETRON HCL Inactive HYDROCODONE-ACETAMINOPHEN 5-325 MG ORAL TABLET 2 tabs by mouth three times daily for pain HYDROCODONE-ACETAMINOPHEN 5-325 MG ORAL TABLET 594981 HYDROCODONE-ACETAMINOPHEN Inactive ZOLPIDEM TARTRATE 10 MG ORAL TABLET take at bedtime ZOLPIDEM TARTRATE 10 MG ORAL TABLET 189352 ZOLPIDEM TARTRATE Inactive LISINOPRIL 20 MG ORAL TABLET 1 BID LISINOPRIL 20 MG ORAL TABLET 495917 LISINOPRIL Inactive TRAVATAN Z 0.004 % OPHTHALMIC SOLUTION 1 gtt each eye daily TRAVATAN Z 0.004 % OPHTHALMIC SOLUTION TRAVOPROST Inactive LATUDA 60 MG ORAL TABLET Take one by mouth daily LATUDA 60 MG ORAL TABLET LURASIDONE HCL Inactive FLUVOXAMINE MALEATE 50 MG ORAL TABLET 1 tab by mouth daily 04/01 FLUVOXAMINE MALEATE 50 MG ORAL TABLET 465648 FLUVOXAMINE MALEATE Inactive LEVEMIR FLEXTOUCH 100 UNIT/ML [...] 30G 3 a day TRUEPLUS LANCETS 30G [id number] LANCETS Inactive AMITIZA 24 MCG ORAL CAPSULE [...] noon FLUVOXAMINE MALEATE 100 MG ORAL TABLET 029956 FLUVOXAMINE MALEATE Inactive FLONASE ALLERGY RELIEF 50 MCG/ACT NASAL SUSPENSION One spray each nostril BID x 1 week then daily FLONASE ALLERGY RELIEF 50 MCG/ACT NASAL SUSPENSION 0832427 FLUTICASONE PROPIONATE Inactive IMODIUM A-D 2 MG ORAL TABLET 1 tab QID as needed IMODIUM A-D 2 MG ORAL TABLET 005414 LOPERAMIDE HCL Inactive MYLANTA GAS RELIEF MAXIMUM STR 125 MG ORAL CAPSULE 30cc every 4 hours prn MYLANTA GAS RELIEF MAXIMUM STR 125 MG ORAL CAPSULE SIMETHICONE Inactive TRUEPLUS LANCETS 30G 3x a day TRUEPLUS LANCETS 30G [id number] LANCETS Inactive TRUE METRIX BLOOD GLUCOSE TEST [...] headaches TRAZODONE HCL 100 MG ORAL TABLET 867521 TRAZODONE HCL Inactive TYLENOL 8 HOUR 650 [...] evening TAMSULOSIN HCL 0.4 MG ORAL CAPSULE 093167 TAMSULOSIN HCL Inactive [facility] MELATONIN 3 MG ORAL TABLET give 1 tab by mouth at HS [facility] MELATONIN 3 MG ORAL TABLET 471649 MELATONIN Inactive SEROQUEL 100 MG ORAL TABLET 1 tab daily SEROQUEL 100 MG ORAL TABLET 083429 QUETIAPINE FUMARATE Inactive AMARYL 2 MG ORAL TABLET give 2.5 tabs PO daily AMARYL 2 MG ORAL TABLET 610583 GLIMEPIRIDE Inactive SEROQUEL 25 MG ORAL TABLET Take two tabs by mouth in the morning, take 4 tablets at night SEROQUEL 25 MG ORAL TABLET 036078 QUETIAPINE FUMARATE Inactive CEFDINIR 300 MG ORAL CAPSULE by mouth twice a day CEFDINIR 300 MG ORAL CAPSULE 258777 CEFDINIR Inactive AZITHROMYCIN 500 MG INTRAVENOUS SOLUTION RECONSTITUTED 1 po q day AZITHROMYCIN 500 MG INTRAVENOUS SOLUTION RECONSTITUTED [id number] AZITHROMYCIN Inactive AMOXICILLIN 500 MG ORAL CAPSULE 2 po BID x 10 days AMOXICILLIN 500 MG ORAL CAPSULE 220166 AMOXICILLIN Inactive PENICILLIN V POTASSIUM 500 MG ORAL TABLET 1 pill by mouth three times daily PENICILLIN V POTASSIUM 500 MG ORAL TABLET 667637 PENICILLIN V POTASSIUM Inactive KEFLEX 500 MG ORAL CAPSULE 1 po BID x 7 days KEFLEX 500 MG ORAL CAPSULE 237207 CEPHALEXIN Inactive Immunizations Vaccine Administration Date Value [...] Fluvirin, Fluarix, Agriflu(>=18 yo)) Fluzone (>3 yrs.) [DXX354] Influenza, seasonal, injectable pneumococcal immunization administered Pneumovax [...] ... - Chemistry sodium, serum 135 mmol/L 635-850 0695/08/22 carbon dioxide, venous blood 28.4 mmol/L [...] mg/g {creat} 0-29 cholesterol, serum 263 mg/dL 185-947 9274/08/22 triglyceride, serum, fasting 1312 mg/dL 30-200 HDL [...] ordered Encounters Code Encounter Date Provider Facility CPT-51611 [id number] Vst-Est Level III 11:00:25 CDT Shavonne Feliciano PA-C [facility] CPT-75240 Level 3 Est. Patient 09:12:14 JACK STRIP ASSEMBLER Mima Erazo [facility] CPT-35823 Level 3 Est. Patient 16:52:51 CDT Vanessa Hickey MD [facility] CPT-57652 Level 3 Est. Patient 17:40:16 CDT Mima Erazo [facility] CPT-90243 Level 3 Est. Patient 14:34:52 CDT Vanessa Hickey MD [facility] CPT-73300 Level 3 Est. Patient 16:27:51 CDT Mima Erazo [facility] CPT-58921 Level 3 Est. Patient 14:39:00 JACK STRIP ASSEMBLER Vanessa Hickey MD [facility] CPT-42962 Level 2 Est. Patient 18:43:34 CDT Mima Erazo [facility] CPT-10934 Level 3 Est. Patient 16:22:09 CDT Cherelle Avila [facility] CPT-33035 Level 4 Est. Patient 17:55:14 CDT Mima Erazo [facility] CPT-45985 Level 2 Est. Patient 17:13:21 CDT Alina Castaneda MD [facility] CPT-99019 Level 3 Est. Patient 14:46:15 CDT Vanessa Hickey MD [facility]-71126 Level 3 Est. Patient 09:34:56 CDT Alina Castaneda MD [facility]-89632 Level 3 Est. Patient 21:40:19 CDT Mima Erazo [facility] CPT-62704 Level 3 Est. Patient 09:26:40 CDT Marvel Charles [facility]-86508 Level 3 Est. Patient 12:36:43 CDT Vanessa Hickey MD [facility]-44012 Level 3 Est. Patient 12:57:49 CDT Vanessa Hickey MD [facility]-87819 Level 3 Est. Patient 00:28:25 CDT Alina Castaneda MD [facility]-16227 Level 2 Est. Patient 12:52:14 CDT Alina Castaneda MD [facility]35980 Level 3 Est. Patient 11:51:18 JACK STRIP ASSEMBLER Alina Castaneda MD [facility] CPT-99167 Level 3 Est. Patient 10:09:22 JACK STRIP ASSEMBLER Alina Castaneda MD [facility]-51072 Level 3 Est. Patient 14:36:26 JACK STRIP ASSEMBLER Marvel Charles [facility] CPT-49243 Level 3 Est. Patient 13:34:47 JACK STRIP ASSEMBLER Alina Castaneda MD [facility]-24028 Level 3 Est. Patient 19:52:08 JACK STRIP ASSEMBLER Alina Castaneda MD [facility] CPT-18470 Level 3 Est. Patient 10:01:51 JACK STRIP ASSEMBLER Marvel Charles [facility]-64587 Level 3 Est. Patient 21:54:06 CDT Vanessa Hickey MD [facility]-45752 Level 3 Est. Patient 08:54:46 CDT Alina Castaneda MD [facility]16994 Level 3 Est. Patient 09:32:11 CDT Marvel Charles [facility]-90846 Level 3 Est. Patient 12:02:49 CDT Alina Castaneda MD PhD [facility]11294 Level 3 Est. Patient 19:17:33 CDT Alina Castaneda MD [facility]79929 Level 3 Est. Patient 13:19:10 [facility]-64824 Level 3 Est. Patient 08:20:05 CDT Alina Castaneda MD [facility]91551 Level 3 Est. Patient 15:17:18 CDT Alina Castaneda MD [facility]71491 Level 3 Est. Patient 14:25:36 JACK STRIP ASSEMBLER Marvel Charles [facility]-57663 Level 3 Est. Patient 10:09:15 JACK STRIP ASSEMBLER Marvel Charles [facility]-70458 Level 3 Est. Patient 21:28:43 CDT Alina Castaneda MD PhD [facility]-60443 Level 3 Est. Patient 15:20:11 CDT Marvel Charles [facility]-18056 Level 4 Est. Patient 19:08:12 CDT Alina Castaneda MD [facility]89627 Level 3 Est. Patient 15:06:39 CDT Marvel Charles [facility]-10390 Level 4 Est. Patient 17:48:15 CDT Alina Castaneda MD [facility]-37155 Level 3 Est. Patient 14:53:49 CDT Alina Castaneda MD [facility]-45371 Level 3 Est. Patient 09:35:16 CDT Alina Castaneda MD [facility]-63692 Level 3 Est. Patient 12:23:22 CDT Alina Castaneda MD [facility]-02233 Level 3 Est. Patient 16:19:15 CDT Alina Castaneda MD [facility]-81534 Level 3 Est. Patient 21:39:56 JACK STRIP ASSEMBLER Alina Castaneda MD [facility]-35198 Level 4 Est. Patient 14:12:56 JACK STRIP ASSEMBLER Alina Castaneda MD [facility]-94612 Level 2 Est. Patient 15:34:57 JACK STRIP ASSEMBLER Alina Castaneda MD [facility]-66787 Level 3 Est. Patient 12:17:04 JACK STRIP ASSEMBLER Alina Castaneda MD [facility]-27586 Level 3 Est. Patient 09:18:18 JACK STRIP ASSEMBLER Marvel Charles [facility]-17142 Level 2 Est. Patient 21:50:24 CDT Alina Castaneda MD [facility]-33315 Level 3 Est. Patient 09:17:28 CDT Marvel Charles [facility]-88051 Level 4 Est. Patient 18:54:02 CDT Alina Castaneda MD [facility]-61187 Level 3 Est. Patient 10:47:10 CDT Alina Castaneda MD [facility] CPT-45580 Level 3 Est. Patient 09:22:20 CDT Marvel Charles [facility] CPT-67279 Level 3 Est. Patient 16:39:43 [facility] Level 3 Est. Patient 16:05:16 CDT Alina Castaneda MD [facility] CPT-43752 Level 3 Est. Patient 00:29:15 CDT Alina Castaneda MD [facility]-75137 Level 3 Est. Patient 10:49:22 JACK STRIP ASSEM[facility] CPT-73631 Level 3 Est. Patient 21:30:19 JACK STRIP ASSEMBLER Alina Castaneda MD [facility] CPT-79564 Level 4 Est. Patient 17:04:11 [facility]ACK STRIP [facility]SEM[facility] Level 3 Est. Patient 15:34:11 JACK STRIP ASSEMBLER [facility] [place]PT-64988 Level 2 Est. Patient 12:51:58 JACK STRIP ASSEMBLER Alina Castaneda MD [facility] CPT-37716 Level 3 Est. Patient 13:20:01 JACK STRIP ASSEMBLER Alina Castaneda MD [facility] CPT-66492 Level 3 Est. Patient 09:23:35 CDT Alina Castaneda MD PhD [facility] Procedures Code Procedure Name Date Entry Date Standard Description CPT-G0439 [facility] Annual Wellness Exam 15:49:52 JACK [employer]IP ASSEMBLER CPT-94864 Level 3 Custodial 13:20:19 CDT CPT-TCMM Transitional Care Mgmt-Moderate 12:32:19 CDT CPT-98429 Level 2 Custodial 09:01:11 CDT CPT-93367 HGBA1C - LAB USE ONLY 09:30:27 JACK STRIP ASSEMBLER CPT-57943 BMP - LAB USE ONLY 09:30:27 JACK [employer]IP ASSEMBLER CPT-01023 Venipuncture Draw Fee 09:30:26 JACK STRIP ASSEMBLER CPT-TCMM Transitional Care Mgmt-Moderate 10:25:31 CDT CPT-46396 Bladder Scan 14:34:53 CDT CPT-92929 Bladder Scan 14:39:01 JACK STRIP ASSEMBLER CPT-TCMM Transitional Care Mgmt-Moderate 10:30:19 JACK [employer]IP ASSEMBLER CPT-10550 Bladder Scan 12:36:44 CDT CPT-84186 Bladder Scan 21:54:06 CDT CPT-G0008 Administration of Influenza Virus Vaccine 13:05:26 CDT CPT-80508 Fluzone Quadrivalent Intramuscular Suspension 0.5 ML 13: 05:26 CDT CPT-93452 Administration single or combination vaccine inc oral 11 :49:51 CDT CPT-69742 Pneumovax 11:49:51 CDT CPT-84960 Ribs unilateral 2V 12:37:22 JACK [employer]IP ASSEMBLER CPT-48574 Chest 2V Frontal and Lat 17:15:26 CDT CPT-61813 Abx/Therapy Injection 18:54:02 CDT CPT-J0696 Rocephin 1000 mg (Ceftriaxone) 16:00:32 CDT CPT-61709 Chest 2V Frontal and Lat 15:26:45 CDT CPT-04474 Chest 2V Frontal and Lat 10:23:27 CDT CPT-85529 Venipuncture Draw Fee 10:11:00 CDT CPT-13828 Administration single or combination vaccine inc oral 11 :56:38 CDT CPT-06324 Influenza split virus > age 3 11:56:38 CDT CPT-61462 Venipuncture Draw Fee 08:49:54 JACK [employer]IP ASSEMBLER CPT-07629 EKG Trac and Interp 17:54:19 JACK STRIP ASSEMBLER
--- OUTSIDE RECORDS SUMMARY | 2018-07-02 15:17 | XMS REPORT | Clinical Summary ---
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 Recheck labs in 3 months ATORVASTATIN CALCIUM 12633612827 Active Mya Ledezma MA Active VERAPAMIL HCL ER 180 MG ORAL TABLET EXTENDED RELEASE 1 tab BID VERAPAMIL HCL 38178762337 Active Shavonne Feliciano PA-C Active SEROQUEL 25 MG ORAL TABLET Take two tabs by mouth in the morning, take 4 tablets at night QUETIAPINE FUMARATE 96620870680 No Longer Active Shavonne Feliciano PA-C Active EFFEXOR XR 150 MG ORAL CAPSULE EXTENDED RELEASE 24 HOUR 1 tab daily VENLAFAXINE HCL 25514606219 Active Shavonne Feliciano PA-C Active QUETIAPINE FUMARATE 25 MG ORAL TABLET 2 tabs BID QUETIAPINE FUMARATE 83277928946 Active Shavonne Feliciano PA-C Active QUETIAPINE FUMARATE 100 MG ORAL TABLET 1 tab PO at HS QUETIAPINE FUMARATE 60271626742 Active Shavonne Feliciano PA-C Active AMARYL 2 MG ORAL TABLET give 2.5 tabs PO daily GLIMEPIRIDE 49772509683 No Longer Active Shavonne Feliciano PA-C Active AMARYL 2 MG ORAL TABLET give 2 tabs PO in the morning GLIMEPIRIDE 09061913132 Active Shavonne Feliciano PA-C Active FENOFIBRATE 145 MG ORAL TABLET 1 tab PO in the morning FENOFIBRATE 00090810215 Active Shavonne Feliciano PA-C Active SEROQUEL 100 MG ORAL TABLET 1 tab daily QUETIAPINE FUMARATE 57995196975 No Longer Active Shavonne Feliciano PA-C Active [facility] MELATONIN 3 MG ORAL TABLET give 1 tab by mouth at HS MELATONIN 44648386128 No Longer Active Gabrielle Marquez MA Active NOVOLOG FLEXPEN 100 UNIT/ML SUBCUTANEOUS SOLUTION PEN-INJECTOR sliding scale INSULIN ASPART 27225981342 Active Gabrielle Marquez MA Active METFORMIN HCL 1000 MG ORAL TABLET 1 tab by mouth BID METFORMIN HCL 70470480882 Active Gabrielle Marquez MA Active [facility] MELATONIN 3 MG ORAL TABLET 1 tab nightly MELATONIN 96243118577 Active Gabrielle Marquez MA Active TAMSULOSIN HCL 0.4 MG ORAL CAPSULE give 2 capsules PO each evening TAMSULOSIN HCL 19780733728 No Longer Active Gabrielle Marquez MA Active VITAMIN D 2000 UNIT ORAL CAPSULE Take one by mouth daily CHOLECALCIFEROL 43885947631 No Longer Active Gabrielle Marquez MA Active LATUDA 40 MG ORAL TABLET 1.5 tab by mouth in the afternoon LURASIDONE HCL 48600763680 Active Gabrielle Marquez MA Active LEVEMIR 100 UNIT/ML SUBCUTANEOUS SOLUTION 10 u at bedtime INSULIN DETEMIR 22284244948 Active Gabrielle Marquez MA Active TAMSULOSIN HCL 0.4 MG ORAL CAPSULE 2 every night for urine flow TAMSULOSIN HCL 72201993963 Active Gabrielle Marquez MA Active DIVALPROEX SODIUM 125 MG ORAL TABLET DELAYED RELEASE 1 tab each morning 02/17 DIVALPROEX SODIUM 56410110385 Active Gabrielle Marquez MA Active D 1000 TABLET 2 tab by mouth BID CHOLECALCIFEROL TABS 60162912499 Active Gabrielle Marquez MA Active ALIGN 4 MG ORAL CAPSULE 1 tab at hs PROBIOTIC PRODUCT 03247401472 Active Gabrielle Marquez MA Active CLONAZEPAM 1 MG ORAL TABLET 1 pill by mouth two times daily CLONAZEPAM 85008568068 Active Gabrielle Marquez MA Active OCEAN NASAL SPRAY SOLUTION 2 sprays in both nostrils every 8 hours as needed for dry mucous membranes SALINE SOLN 35301780000 Active Mason Loredo MD Active BETHANECHOL CHLORIDE 25 MG ORAL TABLET Take 1 tablet mouth four times a day BETHANECHOL CHLORIDE 81059644001 Active Mason Loredo MD Active [facility] LUBRICANT EYE DROPS 0.4-0.3 % OPHTHALMIC SOLUTION POLYETHYL GLYCOL-PROPYL GLYCOL 15279915306 No Longer Active Mason Loredo MD Active TYLENOL 8 HOUR 650 MG ORAL TABLET EXTENDED RELEASE 1 tab QID prn ACETAMINOPHEN 53582586795 No Longer Active Mason Loredo MD Active TOPAMAX 25 MG ORAL TABLET 1 tab BID PRN TOPIRAMATE 64531117279 Active Mason Loredo MD Active TIMOPTIC OCUDOSE 0.5 % OPHTHALMIC SOLUTION instill one drop into both eyes q12H TIMOLOL MALEATE 20169286023 Active Mason Loredo MD Active TRAZODONE HCL 100 MG ORAL TABLET 1 every night to prevent headaches TRAZODONE HCL 84653192042 No Longer Active Mason Loredo MD Active TRAVATAN Z 0.004 % OPHTHALMIC SOLUTION 1 drop each eye daily 2017 TRAVOPROST 72184164967 No Longer Active Mason Loredo MD Active LATUDA 60 MG ORAL TABLET 1 tab daily LURASIDONE HCL 19852449586 No Longer Active Mason Loredo MD Active MORPHINE SULFATE ER 30 MG ORAL TABLET EXTENDED RELEASE Take one capsule BID MORPHINE SULFATE 13675574334 No Longer Active Mason Loredo MD Active TRUE METRIX BLOOD GLUCOSE TEST IN VITRO STRIP Check blood sugars 3x/day. 2015 GLUCOSE BLOOD 38060765758 No Longer Active Mason Loredo MD Active TRUEPLUS LANCETS 30G 3x a day LANCETS 15735386560 No Longer Active Mason Loredo MD Active MYLANTA GAS RELIEF MAXIMUM STR 125 MG ORAL CAPSULE 30cc every 4 hours prn SIMETHICONE 33685341303 No Longer Active Mason Loredo MD Active IMODIUM A-D 2 MG ORAL TABLET 1 tab QID as needed LOPERAMIDE HCL 89690307071 No Longer Active Mason Loredo MD Active FLONASE ALLERGY RELIEF 50 MCG/ACT NASAL SUSPENSION One spray each nostril BID x 1 week then daily FLUTICASONE PROPIONATE 41495158270 No Longer Active Mason Loredo MD Active FLUVOXAMINE MALEATE 100 MG ORAL TABLET take one tab every AM et HS, and take 1 /2 tab at noon FLUVOXAMINE MALEATE 90996719434 No Longer Active Mason Loredo MD Active BD PEN NEEDLE MINI U/F 31G X 5 MM 4 a day INSULIN PEN NEEDLE 94599773581 No Longer Active Mason Loredo MD Active AMITIZA 24 MCG ORAL CAPSULE Take one capsule BID for constipation LUBIPROSTONE 38553832953 No Longer Active Mason Loredo MD Active TRUEPLUS LANCETS 30G 3 a day LANCETS 42000896480 No Longer Active Mason Loredo MD Active CORICIDIN HBP CONGESTION/COUGH 10-200 MG ORAL CAPSULE Take as directed on box as needed for cold/flu symptoms DEXTROMETHORPHAN- GUAIFENESIN 11514637534 No Longer Active Mason Loredo MD Active OMEGA-3 300 MG ORAL CAPSULE 4 caps by mouth daily OMEGA-3 FATTY ACIDS 29480290282 No Longer Active Mason Loredo MD Active HUMALOG KWIKPEN 100 UNIT/ML SUBCUTANEOUS SOLUTION PEN-INJECTOR sliding scale if needed INSULIN LISPRO (HUMAN) 93532161481 No Longer Active Mason Loredo MD Active TRUETEST TEST IN VITRO STRIP check blood sugars 3x/day GLUCOSE BLOOD 78707876446 No Longer Active Mason Loredo MD Active ALFUZOSIN HCL ER 10 MG ORAL TABLET EXTENDED RELEASE 24 HOUR 1 tablet daily ALFUZOSIN HCL 09412899091 No Longer Active Mason Loredo MD Active BD INSULIN SYRINGE 28G X 1/2" 1 ML 1 four times per day INSULIN SYRINGE-NEEDLE U-100 68614557977 No Longer Active Mason Loredo MD Active LEVEMIR FLEXTOUCH 100 UNIT/ML SUBCUTANEOUS SOLUTION PEN-INJECTOR 60 units SQ each evening, for diabetes INSULIN DETEMIR 01509350431 No Longer Active Mason Loredo MD Active LACTULOSE 20 GM/30ML ORAL SOLUTION give 30 Ml PO BID PRN LACTULOSE 36996828275 Active Mason Loredo MD Active COLACE 100 MG ORAL CAPSULE 1 tab BID PRN DOCUSATE SODIUM 91993854348 Active Mason Loredo MD Active LATANOPROST 0.005 % OPHTHALMIC SOLUTION instill 1 drop in both eyes at bed time LATANOPROST 44029200075 Active Mason Loredo MD Active MIRALAX ORAL POWDER 17g by mouth q12h, for constipation POLYETHYLENE GLYCOL 3350 75508772700 Active Mason Loredo MD Active IBUPROFEN 400 MG ORAL TABLET 1 tab Q6H PRN IBUPROFEN 14162810372 Active Mason Loredo MD Active FLUVOXAMINE MALEATE 50 MG ORAL TABLET 1 tab by mouth daily 04/01 FLUVOXAMINE MALEATE 09861080249 No Longer Active Mima Erazo APRN Active TRUE METRIX METER w/Device KIT Check blood sugars 3x/day BLOOD GLUCOSE MONITORING SUPPL 89270295816 Active Marvel Mackenzieglestela CONFECTIONERY LABORATORY MANAGER Active LATUDA 60 MG ORAL TABLET Take one by mouth daily LURASIDONE HCL 64190042684 No Longer Active Mima Erazo APRN Active [facility] MILK OF MAGNESIA 400 MG/5ML ORAL SUSPENSION 30ml by mouth bid prn MAGNESIUM HYDROXIDE 29521806706 Active Mason Loredo MD Active TRAVATAN Z 0.004 % OPHTHALMIC SOLUTION 1 gtt each eye daily TRAVOPROST 35852777573 No Longer Active Mason Loredo MD Active LISINOPRIL 20 MG ORAL TABLET 1 BID LISINOPRIL 32833054594 No Longer Active Mason Loredo MD Active ZOLPIDEM TARTRATE 10 MG ORAL TABLET take at bedtime ZOLPIDEM TARTRATE 48514319101 No Longer Active Mason Loredo MD Active HYDROCODONE-ACETAMINOPHEN 5-325 MG ORAL TABLET 2 tabs by mouth three times daily for pain HYDROCODONE-ACETAMINOPHEN 11108489452 No Longer Active Mason Loredo MD Active ZOFRAN 4 MG ORAL TABLET 1 po q4hr PRN Nausea ONDANSETRON HCL 29184997433 No Longer Active Mason Loredo MD Active LOMOTIL 2.5-0.025 MG ORAL TABLET take 1-2 tabs PO after each stool, no more than 8 in 24 hours DIPHENOXYLATE-ATROPINE 81036064044 No Longer Active Mason Loredo MD Active COLACE 100 MG ORAL CAPSULE 1 pill by mouth twice daily, for constipation 2014 DOCUSATE SODIUM 25011420251 No Longer Active Mima Erazo APRN Active TOLTERODINE TARTRATE 2 MG ORAL TABLET 1 pill twice daily, for bladder TOLTERODINE TARTRATE 72264709808 No Longer Active Vanessa Hickey MD Active AMITIZA 24 MCG ORAL CAPSULE Take one capsule BID for constipation. LUBIPROSTONE 47101314307 No Longer Active Vanessa Hickey MD Active METOPROLOL SUCCINATE ER 100 MG ORAL TABLET EXTENDED RELEASE 24 HOUR 1 by mouth daily for blood pressure METOPROLOL SUCCINATE 10329219590 No Longer Active Grace Nascimento RMA Active METFORMIN HCL ER 500 MG ORAL TABLET EXTENDED RELEASE 24 HOUR Take three tablets by mouth everyday METFORMIN HCL 57236859695 No Longer Active Grace Azam RMA Active LOVAZA 1 GM ORAL CAPSULE 4 daily (for triglycerides) NXDLA-5-AMMT ETHYL ESTERS 82325136020 No Longer Active Grace Azam RMA Active TRAZODONE HCL 100 MG ORAL TABLET 1 tab by mouth for sleep TRAZODONE HCL 00066071112 No Longer Active Grace Azam RMA Active NOVOFINE 32G X 6 MM use one four times per day INSULIN PEN NEEDLE 70431811686 No Longer Active Grace Azam RMA Active BACTROBAN 2 % EXTERNAL CREAM Apply to affected area BID for up to 10 days MUPIROCIN CALCIUM 34166102913 No Longer Active Grace Azam RMA Active KEFLEX 500 MG ORAL CAPSULE 1 po BID x 7 days CEPHALEXIN 84924352001 No Longer Active Cherelle Avila APRN Active FLUVOXAMINE MALEATE 100 MG ORAL TABLET Take one (1) tablet by mouth am, 1/2 at noon FLUVOXAMINE MALEATE 65252614714 No Longer Active Mima Erazo ALBAN Active FLUVOXAMINE MALEATE 100 MG ORAL TABLET Take 1/2 tab at noon 03/04 FLUVOXAMINE MALEATE 78938983271 No Longer Active Cherelle Avila ALBAN Active ACCU-CHEK ROSA DEVICE Use device to check blood sugars BLOOD GLUCOSE MONITORING SUPPL 05128270243 No Longer Active Marvel MARROQUIN Active ACCU-CHEK ROSA IN VITRO STRIP use strips with device to check blood sugars 3 times daily GLUCOSE BLOOD 70772870500 No Longer Active Marvel MENDOZAP Active VERAPAMIL HCL ER 180 MG ORAL TABLET EXTENDED RELEASE 1 pill by mouth twice daily, for migraine prevention VERAPAMIL HCL 43873717166 Active Mima Aguilareloinajerrell ALBAN Active CYCLOBENZAPRINE HCL 10 MG ORAL TABLET 1 tablet by mouth three times daily, scheduled CYCLOBENZAPRINE HCL 28041807386 No Longer Active Alina Castaneda MD PhD Active HUMALOG 100 UNIT/ML SUBCUTANEOUS SOLUTION Take 20 units with breakfast, 10u with lunch and suppetr. INSULIN LISPRO (HUMAN) 57399013952 No Longer Active Alina Castaneda MD PhD Active TRUETEST TEST IN VITRO STRIP check sugars 4x/day GLUCOSE BLOOD 74773729146 No Longer Active Alina Castaneda MD PhD Active MORPHINE SULFATE 30 MG ORAL TABLET 1 pill by mouth twice daily, for pain 2013 MORPHINE SULFATE 84085786475 No Longer Active Mason Loredo MD Active ACYCLOVIR 400 MG ORAL TABLET 1 pill three times daily x 5 days, for cold sore outbreak ACYCLOVIR 54612110311 No Longer Active Alina Castaneda MD PhD Active PENICILLIN V POTASSIUM 500 MG ORAL TABLET 1 pill by mouth three times daily PENICILLIN V POTASSIUM 55598356266 No Longer Active Alina Castaneda MD PhD Active UROXATRAL 10 MG ORAL TABLET EXTENDED RELEASE 24 HOUR Take 1 tablet by mouth daily ALFUZOSIN HCL 76832903051 No Longer Active Alina Castaneda MD PhD Active THIOTHIXENE 5 MG ORAL CAPSULE by mouth twice a day THIOTHIXENE 16362565342 No Longer Active Alina Castaneda MD PhD Active ZYPREXA 7.5 MG ORAL TABLET 1 at HS OLANZAPINE 01551774748 No Longer Active Alina Castaneda MD PhD Active DETROL LA 4 MG ORAL CAPSULE EXTENDED RELEASE 24 HOUR Take 1 tablet by mouth daily TOLTERODINE TARTRATE 86181749761 No Longer Active Alina Castaneda MD PhD Active TERESE CONTOUR TEST IN VITRO STRIP monitor blood sugars 3x/day GLUCOSE BLOOD 63174023428 No Longer Active Alian Castaneda MD PhD Active EQL TRUETEST TEST IN VITRO STRIP Test blood sugar TID GLUCOSE BLOOD 67999879282 No Longer Active Alina Castaneda MD PhD Active FLUTICASONE PROPIONATE 50 MCG/ACT NASAL SUSPENSION 2 sprays each nostril qDay x 30 days FLUTICASONE PROPIONATE 97843566647 No Longer Active Alina Castaneda MD PhD Active IBUPROFEN 200 MG ORAL TABLET 1 Q 6 hr. PRN IBUPROFEN 73739628459 No Longer Active Alina Castaneda MD PhD Active NIACIN ER 500 MG ORAL TABLET EXTENDED RELEASE 4 qHS (for triglycerides) 01/13 NIACIN 08753051641 No Longer Active Alina Castaneda MD PhD Active SAPHRIS 5 MG SUBLINGUAL TABLET SUBLINGUAL by mouth twice a day ASENAPINE MALEATE 79715286069 No Longer Active Maljohn Ziglari CONFECTIONERY LABORATORY MANAGER Active ACETAMINOPHEN 500 MG ORAL TABLET 2 Q 6 hr. PRN ACETAMINOPHEN 89333987961 No Longer Active Maliheh Ziglari CONFECTIONERY LABORATORY MANAGER Active ORPHENADRINE CITRATE ER 100 MG ORAL TABLET EXTENDED RELEASE 12 HOUR 1 every 12 hr. as needed ORPHENADRINE CITRATE 63627681481 No Longer Active Alina Castaneda MD PhD Active NIACIN ER 500 MG ORAL TABLET EXTENDED RELEASE 2 qHS NIACIN 64984478523 No Longer Active Alina Castaneda MD PhD Active AMOXICILLIN 500 MG ORAL CAPSULE 2 po BID x 10 days AMOXICILLIN 08502547766 No Longer Active Alina Castaneda MD PhD Active HYDROCODONE-ACETAMINOPHEN 7.5-325 MG ORAL TABLET 1 four times a day as needed for pain HYDROCODONE-ACETAMINOPHEN 27378470013 No Longer Active Alina Castaneda MD PhD Active DOXEPIN HCL 10 MG ORAL CAPSULE Take 1 tablet by mouth daily DOXEPIN HCL 89898255253 No Longer Active Salina Han [facility] Active NAVANE 10 MG CAPS 1/2 tablet twice a day THIOTHIXENE No Longer Active Salina Emely [facility] Active CYCLOBENZAPRINE HCL 10 MG ORAL TABLET 1/2 tablet by mouth every 8 hours as needed for muscle spasms CYCLOBENZAPRINE HCL 61670727913 No Longer Active Alina Castaneda MD PhD Active BACTROBAN 2 % EXTERNAL CREAM apply to ear and nose twice daily MUPIROCIN CALCIUM 82911252251 No Longer Active Alina Castaneda MD PhD Active HYDROCODONE-ACETAMINOPHEN 5-325 MG ORAL TABLET take one tablet by mouth every four hours as needed for pain HYDROCODONE-ACETAMINOPHEN 62085414159 No Longer Active Alina Castaneda MD PhD Active ZYPREXA 5 MG ORAL TABLET take one tablet by mouth every evening OLANZAPINE 34432010245 No Longer Active Alina Castaneda MD PhD Active ALBUTEROL SULFATE (2.5 MG/3ML) 0.083% INHALATION NEBULIZATION SOLUTION one vial per nebulizer TID and PRN cough/soa ALBUTEROL SULFATE 75395998201 No Longer Active Alina Castaneda MD PhD Active GUAIFENESIN ER 600 MG ORAL TABLET EXTENDED RELEASE 12 HOUR 1 tablet by mouth twice daily if needed for cough GUAIFENESIN 15340917031 No Longer Active Marvel MARROQUIN Active AZITHROMYCIN 500 MG INTRAVENOUS SOLUTION RECONSTITUTED 1 po q day AZITHROMYCIN 48034206158 No Longer Active Alina Castaneda MD PhD Active PROMETHAZINE-CODEINE 6.25-10 MG/5ML ORAL SYRUP 1 tsp po q 6 hours prn cough PROMETHAZINE-CODEINE 14395657093 No Longer Active Alina Castaneda MD PhD Active CEFDINIR 300 MG ORAL CAPSULE by mouth twice a day CEFDINIR 72133313550 No Longer Active Alina Castaneda MD PhD Active METFORMIN HCL ER 500 MG ORAL TABLET EXTENDED RELEASE 24 HOUR Take 3 tablets by mouth everyday METFORMIN HCL 66589671193 No Longer Active Alina Castaneda MD PhD Active LEVEMIR 100 UNIT/ML SUBCUTANEOUS SOLUTION 90 units SQ qHS INSULIN DETEMIR 42255481578 No Longer Active Marvel MARROQUIN Active TOPROL XL 100 MG ORAL TABLET EXTENDED RELEASE 24 HOUR 1 @ HS METOPROLOL SUCCINATE 06260875874 No Longer Active Marvel MARROQUIN Active ALLOPURINOL 300 MG ORAL TABLET Take one by mouth daily ALLOPURINOL 14117431562 Active Mima Erazo MICA MINER BLASTING Active ZYPREXA 10 MG ORAL TABLET Take one by mouth daily OLANZAPINE 18782268341 No Longer Active Alina Castaneda MD PhD Active NOVOLOG 100 UNIT/ML SUBCUTANEOUS SOLUTION 40 units with every meal INSULIN ASPART 20291033323 No Longer Active Alina Castaneda MD PhD Active VERAPAMIL HCL ER 120 MG ORAL TABLET EXTENDED RELEASE 1 qPM 09/08 VERAPAMIL HCL 28750579451 No Longer Active Salina ROJAS Active ZYPREXA 15 MG ORAL TABLET Take 1 tablet by mouth daily OLANZAPINE 28645323031 No Longer Active Marvel MARROQUIN Active ALBUTEROL SULFATE (2.5 MG/3ML) 0.083% INHALATION NEBULIZATION SOLUTION 1 neb tid and prn cough ALBUTEROL SULFATE 34533732440 No Longer Active Alina Castaneda MD PhD Active LANTUS 100 UNIT/ML SUBCUTANEOUS SOLUTION 60 units sq q hs INSULIN GLARGINE 48293063667 No Longer Active CRYSTAL Suarez Active ALBUTEROL SULFATE (2.5 MG/3ML) 0.083% INHALATION NEBULIZATION SOLUTION 1 neb tid and prn cough ALBUTEROL SULFATE (2.5 MG/3ML) 0.083% INHALATION NEBULIZATION SOLUTION 865023 ALBUTEROL SULFATE Inactive ZYPREXA 15 MG ORAL TABLET Take 1 tablet by mouth daily ZYPREXA 15 MG ORAL TABLET 807199 OLANZAPINE Inactive VERAPAMIL HCL ER 120 MG ORAL TABLET EXTENDED RELEASE 1 qPM 09/08 VERAPAMIL HCL ER 120 MG ORAL TABLET EXTENDED RELEASE VERAPAMIL HCL Inactive ZYPREXA 10 MG ORAL TABLET Take one by mouth daily ZYPREXA 10 MG ORAL TABLET 911449 OLANZAPINE Inactive TOPROL XL 100 MG ORAL TABLET EXTENDED RELEASE 24 HOUR 1 @ HS TOPROL XL 100 MG ORAL TABLET EXTENDED RELEASE 24 HOUR METOPROLOL SUCCINATE Inactive LEVEMIR 100 UNIT/ML SUBCUTANEOUS SOLUTION 90 units SQ qHS LEVEMIR 100 UNIT/ML SUBCUTANEOUS SOLUTION INSULIN DETEMIR Inactive PROMETHAZINE-CODEINE 6.25-10 MG/5ML ORAL SYRUP 1 tsp po q 6 hours prn cough PROMETHAZINE-CODEINE 6.25-10 MG/5ML ORAL SYRUP 699348 PROMETHAZINE-CODEINE Inactive GUAIFENESIN ER 600 MG ORAL TABLET EXTENDED RELEASE 12 HOUR 1 tablet by mouth twice daily if needed for cough GUAIFENESIN ER 600 MG ORAL TABLET EXTENDED RELEASE 12 HOUR GUAIFENESIN Inactive ALBUTEROL SULFATE (2.5 MG/3ML) 0.083% INHALATION NEBULIZATION SOLUTION one vial per nebulizer TID and PRN cough/soa ALBUTEROL SULFATE (2.5 MG/3ML) 0.083% INHALATION NEBULIZATION SOLUTION 671553 ALBUTEROL SULFATE Inactive ZYPREXA 5 MG ORAL TABLET take one tablet by mouth every evening ZYPREXA 5 MG ORAL TABLET 464889 OLANZAPINE Inactive HYDROCODONE-ACETAMINOPHEN 5-325 MG ORAL TABLET take one tablet by mouth every four hours as needed for pain HYDROCODONE-ACETAMINOPHEN 5-325 MG ORAL TABLET 884043 HYDROCODONE-ACETAMINOPHEN Inactive BACTROBAN 2 % EXTERNAL CREAM apply to ear and nose twice daily BACTROBAN 2 % EXTERNAL CREAM 898457 MUPIROCIN CALCIUM Inactive CYCLOBENZAPRINE HCL 10 MG ORAL TABLET 1/2 tablet by mouth every 8 hours as needed for muscle spasms CYCLOBENZAPRINE HCL 10 MG ORAL TABLET 920500 CYCLOBENZAPRINE HCL Inactive NAVANE 10 MG CAPS 1/2 tablet twice a day NAVANE 10 MG CAPS THIOTHIXENE Inactive DOXEPIN HCL 10 MG ORAL CAPSULE Take 1 tablet by mouth daily DOXEPIN HCL 10 MG ORAL CAPSULE 1245224 DOXEPIN HCL Inactive HYDROCODONE-ACETAMINOPHEN 7.5-325 MG ORAL TABLET 1 four times a day as needed for pain HYDROCODONE-ACETAMINOPHEN 7.5-325 MG ORAL TABLET 047274 HYDROCODONE-ACETAMINOPHEN Inactive NIACIN ER 500 MG ORAL [...] hr. PRN ACETAMINOPHEN 500 MG ORAL TABLET 087990 ACETAMINOPHEN Inactive SAPHRIS 5 MG SUBLINGUAL TABLET SUBLINGUAL by mouth twice a day SAPHRIS 5 MG SUBLINGUAL TABLET SUBLINGUAL ASENAPINE MALEATE Inactive NIACIN ER 500 MG ORAL TABLET EXTENDED RELEASE 4 qHS (for triglycerides) 01/13 NIACIN ER 500 MG ORAL TABLET EXTENDED RELEASE NIACIN Inactive IBUPROFEN 200 MG ORAL TABLET 1 Q 6 hr. PRN IBUPROFEN 200 MG ORAL TABLET 803552 IBUPROFEN Inactive FLUTICASONE PROPIONATE 50 MCG/ACT NASAL SUSPENSION 2 sprays each nostril qDay x 30 days FLUTICASONE PROPIONATE 50 MCG/ACT NASAL SUSPENSION 1328427 FLUTICASONE PROPIONATE Inactive EQL TRUETEST TEST IN [...] at HS ZYPREXA 7.5 MG ORAL TABLET 564488 OLANZAPINE Inactive THIOTHIXENE 5 MG ORAL CAPSULE by mouth twice a day THIOTHIXENE 5 MG ORAL CAPSULE 313763 THIOTHIXENE Inactive UROXATRAL 10 MG ORAL TABLET EXTENDED RELEASE 24 HOUR Take 1 tablet by mouth daily UROXATRAL 10 MG ORAL TABLET EXTENDED RELEASE 24 HOUR ALFUZOSIN HCL Inactive ACYCLOVIR 400 MG ORAL TABLET 1 pill three times daily x 5 days, for cold sore outbreak ACYCLOVIR 400 MG ORAL TABLET 785962 ACYCLOVIR Inactive TRUETEST TEST IN VITRO STRIP check sugars 4x/day TRUETEST TEST IN VITRO STRIP GLUCOSE BLOOD Inactive HUMALOG 100 UNIT/ML SUBCUTANEOUS SOLUTION Take 20 units with breakfast, 10u with lunch and suppetr. HUMALOG 100 UNIT/ML SUBCUTANEOUS SOLUTION INSULIN LISPRO (HUMAN) Inactive CYCLOBENZAPRINE HCL 10 MG ORAL TABLET 1 tablet by mouth three times daily, scheduled CYCLOBENZAPRINE HCL 10 MG ORAL TABLET 451425 CYCLOBENZAPRINE HCL Inactive ACCU-CHEK ROSA IN VITRO STRIP use strips with device to check blood sugars 3 times daily ACCU-CHEK ROSA IN VITRO STRIP GLUCOSE BLOOD Inactive ACCU-CHEK ROSA DEVICE Use device to check blood sugars ACCU-CHEK ROSA DEVICE BLOOD GLUCOSE MONITORING SUPPL Inactive FLUVOXAMINE MALEATE 100 MG ORAL TABLET Take 1/2 tab at noon 03/04 FLUVOXAMINE MALEATE 100 MG ORAL TABLET 861120 FLUVOXAMINE MALEATE Inactive FLUVOXAMINE MALEATE 100 MG ORAL TABLET Take one (1) tablet by mouth am, 1/2 at noon FLUVOXAMINE MALEATE 100 MG ORAL TABLET 663323 FLUVOXAMINE MALEATE Inactive BACTROBAN 2 % EXTERNAL CREAM Apply to affected area BID for up to 10 days BACTROBAN 2 % EXTERNAL CREAM 387354 MUPIROCIN CALCIUM Inactive NOVOFINE 32G X 6 MM use one four times per day NOVOFINE 32G X 6 MM INSULIN PEN NEEDLE Inactive TRAZODONE HCL 100 MG ORAL TABLET 1 tab by mouth for sleep TRAZODONE HCL 100 MG ORAL TABLET 784302 TRAZODONE HCL Inactive LOVAZA 1 GM ORAL CAPSULE 4 daily (for triglycerides) LOVAZA 1 GM ORAL CAPSULE 463406 [id number] ETHYL ESTERS Inactive METFORMIN HCL ER 500 [...] bladder TOLTERODINE TARTRATE 2 MG ORAL TABLET 452181 TOLTERODINE TARTRATE Inactive COLACE 100 MG ORAL CAPSULE 1 pill by mouth twice daily, for constipation 2014 COLACE 100 MG ORAL CAPSULE 2200783 DOCUSATE SODIUM Inactive LOMOTIL 2.5-0.025 MG ORAL TABLET take 1-2 tabs PO after each stool, no more than 8 in 24 hours LOMOTIL 2.5-0.025 MG ORAL TABLET 7197689 DIPHENOXYLATE-ATROPINE Inactive ZOFRAN 4 MG ORAL TABLET 1 po q4hr PRN Nausea ZOFRAN 4 MG ORAL TABLET 390168 ONDANSETRON HCL Inactive HYDROCODONE-ACETAMINOPHEN 5-325 MG ORAL TABLET 2 tabs by mouth three times daily for pain HYDROCODONE-ACETAMINOPHEN 5-325 MG ORAL TABLET 212114 HYDROCODONE-ACETAMINOPHEN Inactive ZOLPIDEM TARTRATE 10 MG ORAL TABLET take at bedtime ZOLPIDEM TARTRATE 10 MG ORAL TABLET 471525 ZOLPIDEM TARTRATE Inactive LISINOPRIL 20 MG ORAL TABLET 1 BID LISINOPRIL 20 MG ORAL TABLET 754769 LISINOPRIL Inactive TRAVATAN Z 0.004 % OPHTHALMIC SOLUTION 1 gtt each eye daily TRAVATAN Z 0.004 % OPHTHALMIC SOLUTION TRAVOPROST Inactive LATUDA 60 MG ORAL TABLET Take one by mouth daily LATUDA 60 MG ORAL TABLET LURASIDONE HCL Inactive FLUVOXAMINE MALEATE 50 MG ORAL TABLET 1 tab by mouth daily 04/01 FLUVOXAMINE MALEATE 50 MG ORAL TABLET 407391 FLUVOXAMINE MALEATE Inactive LEVEMIR FLEXTOUCH 100 UNIT/ML [...] 30G 3 a day TRUEPLUS LANCETS 30G [id number] LANCETS Inactive AMITIZA 24 MCG ORAL CAPSULE [...] noon FLUVOXAMINE MALEATE 100 MG ORAL TABLET 267119 FLUVOXAMINE MALEATE Inactive FLONASE ALLERGY RELIEF 50 MCG/ACT NASAL SUSPENSION One spray each nostril BID x 1 week then daily FLONASE ALLERGY RELIEF 50 MCG/ACT NASAL SUSPENSION 1929889 FLUTICASONE PROPIONATE Inactive IMODIUM A-D 2 MG ORAL TABLET 1 tab QID as needed IMODIUM A-D 2 MG ORAL TABLET 534910 LOPERAMIDE HCL Inactive MYLANTA GAS RELIEF MAXIMUM STR 125 MG ORAL CAPSULE 30cc every 4 hours prn MYLANTA GAS RELIEF MAXIMUM STR 125 MG ORAL CAPSULE SIMETHICONE Inactive TRUEPLUS LANCETS 30G 3x a day TRUEPLUS LANCETS 30G [id number] LANCETS Inactive TRUE METRIX BLOOD GLUCOSE TEST [...] headaches TRAZODONE HCL 100 MG ORAL TABLET 536319 TRAZODONE HCL Inactive TYLENOL 8 HOUR 650 [...] evening TAMSULOSIN HCL 0.4 MG ORAL CAPSULE 238198 TAMSULOSIN HCL Inactive [facility] MELATONIN 3 MG ORAL TABLET give 1 tab by mouth at HS [facility] MELATONIN 3 MG ORAL TABLET 630647 MELATONIN Inactive SEROQUEL 100 MG ORAL TABLET 1 tab daily SEROQUEL 100 MG ORAL TABLET 211402 QUETIAPINE FUMARATE Inactive AMARYL 2 MG ORAL TABLET give 2.5 tabs PO daily AMARYL 2 MG ORAL TABLET 111482 GLIMEPIRIDE Inactive SEROQUEL 25 MG ORAL TABLET Take two tabs by mouth in the morning, take 4 tablets at night SEROQUEL 25 MG ORAL TABLET 849189 QUETIAPINE FUMARATE Inactive CEFDINIR 300 MG ORAL CAPSULE by mouth twice a day CEFDINIR 300 MG ORAL CAPSULE 786203 CEFDINIR Inactive AZITHROMYCIN 500 MG INTRAVENOUS SOLUTION RECONSTITUTED 1 po q day AZITHROMYCIN 500 MG INTRAVENOUS SOLUTION RECONSTITUTED [id number] AZITHROMYCIN Inactive AMOXICILLIN 500 MG ORAL CAPSULE 2 po BID x 10 days AMOXICILLIN 500 MG ORAL CAPSULE 708779 AMOXICILLIN Inactive PENICILLIN V POTASSIUM 500 MG ORAL TABLET 1 pill by mouth three times daily PENICILLIN V POTASSIUM 500 MG ORAL TABLET 298729 PENICILLIN V POTASSIUM Inactive KEFLEX 500 MG ORAL CAPSULE 1 po BID x 7 days KEFLEX 500 MG ORAL CAPSULE 686808 CEPHALEXIN Inactive Immunizations Vaccine Administration Date Value [...] Fluvirin, Fluarix, Agriflu(>=18 yo)) Fluzone (>3 yrs.) [[id number]] Influenza, seasonal, injectable pneumococcal immunization administered Pneumovax [...] ... - Chemistry sodium, serum 135 mmol/L 730-633 5367/08/22 carbon dioxide, venous blood 28.4 mmol/L 21.0-32.0 [...] mg/g {creat} 0-29 cholesterol, serum 263 mg/dL 505-535 5986/08/22 triglyceride, serum, fasting 1312 mg/dL 30-200 HDL [...] ordered Encounters Code Encounter Date Provider Facility CPT-37190 [id number] Vst-Est Level III 11:00:25 CDT Shavonne Feliciano PA-C [facility] CPT-86352 Level 3 Est. Patient 09:12:14 SANITOR Mima Erazo [facility] CPT-43047 Level 3 Est. Patient 16:52:51 CDT Vanessa Hickey MD [facility] CPT-63820 Level 3 Est. Patient 17:40:16 CDT Mima Erazo [facility] CPT-64293 Level 3 Est. Patient 14:34:52 CDT Vanessa Hickey MD [facility] CPT-79261 Level 3 Est. Patient 16:27:51 CDT Mima Erazo [facility] CPT-63178 Level 3 Est. Patient 14:39:00 SANITOR Vanessa Hickey MD [facility] CPT-81166 Level 2 Est. Patient 18:43:34 CDT Mima Erazo [facility] CPT-43517 Level 3 Est. Patient 16:22:09 CDT Cherelle Avila [facility] CPT-99191 Level 4 Est. Patient 17:55:14 CDT Mima Erazo [facility] CPT-42466 Level 2 Est. Patient 17:13:21 CDT Alina Castaneda MD [facility] CPT-98505 Level 3 Est. Patient 14:46:15 CDT Vanessa Hickey MD [facility]-55111 Level 3 Est. Patient 09:34:56 CDT Alina Castaneda MD [facility]-80866 Level 3 Est. Patient 21:40:19 CDT Mima Erazo [facility] CPT-46478 Level 3 Est. Patient 09:26:40 CDT Marvel [address] [facility]-19894 Level 3 Est. Patient 12:36:43 CDT Vanessa Hickey MD [facility]-26793 Level 3 Est. Patient 12:57:49 CDT Vanessa Hickey MD [facility]-39250 Level 3 Est. Patient 00:28:25 CDT Alina Castaneda MD [facility]-96197 Level 2 Est. Patient 12:52:14 CDT Alina Castaneda MD [facility]66265 Level 3 Est. Patient 11:51:18 SANITOR Alina Castaneda MD [facility] CPT-35842 Level 3 Est. Patient 10:09:22 SANITOR Alina Castaneda MD [facility]-89164 Level 3 Est. Patient 14:36:26 SANITOR Marvel Charles [facility] CPT-44917 Level 3 Est. Patient 13:34:47 SANITOR Alina Castaneda MD [facility]-68327 Level 3 Est. Patient 19:52:08 SANITOR Alina Castaneda MD [facility] CPT-70322 Level 3 Est. Patient 10:01:51 SANITOR Marvel Charles [facility]-27321 Level 3 Est. Patient 21:54:06 CDT Vanessa Hickey MD [facility]-53822 Level 3 Est. Patient 08:54:46 CDT Alina Castaneda MD [facility]72847 Level 3 Est. Patient 09:32:11 CDT Marvel Charles [facility]-49111 Level 3 Est. Patient 12:02:49 CDT Alina Castaneda MD PhD [facility]18488 Level 3 Est. Patient 19:17:33 CDT Alina Castaneda MD [facility]47503 Level 3 Est. Patient 13:19:[address] [facility]-41235 Level 3 Est. Patient 08:20:05 CDT Alina Castaneda MD [facility]13461 Level 3 Est. Patient 15:17:18 CDT Alina Castaneda MD [facility]44103 Level 3 Est. Patient 14:25:36 SANITOR Marvel Charles [facility]-28867 Level 3 Est. Patient 10:09:15 SANITOR Marvel Charles [facility]-48299 Level 3 Est. Patient 21:28:43 CDT Alina Castaneda MD PhD [facility]-27837 Level 3 Est. Patient 15:20:11 CDT Marvel Charles [facility]-64089 Level 4 Est. Patient 19:08:12 CDT Alina Castaneda MD [facility]43361 Level 3 Est. Patient 15:06:39 CDT Marvel Charles [facility]-96411 Level 4 Est. Patient 17:48:15 CDT Alina Castaneda MD [facility]-48578 Level 3 Est. Patient 14:53:49 CDT Alina Castaneda MD [facility]-07261 Level 3 Est. Patient 09:35:16 CDT Alina Castaneda MD [facility]-97641 Level 3 Est. Patient 12:23:22 CDT Alina Castaneda MD [facility]-26933 Level 3 Est. Patient 16:19:15 CDT Alina Castaneda MD [facility]-13177 Level 3 Est. Patient 21:39:56 SANITOR Alina Castaneda MD [facility]-22761 Level 4 Est. Patient 14:12:56 SANITOR Alina Castaneda MD [facility]-12198 Level 2 Est. Patient 15:34:57 SANITOR Alina Castaneda MD [facility]-53563 Level 3 Est. Patient 12:17:04 SANITOR Alina Castaneda MD [facility]-44549 Level 3 Est. Patient 09:18:18 SANITOR Marvel Charles [facility]-81737 Level 2 Est. Patient 21:50:24 CDT Alina Castaneda MD [facility]-69926 Level 3 Est. Patient 09:17:28 CDT Marvel Charles [facility]-19294 Level 4 Est. Patient 18:54:02 CDT Alina Castaneda MD [facility]-53966 Level 3 Est. Patient 10:47:10 CDT Alina Castaneda MD [facility] CPT-05283 Level 3 Est. Patient 09:22:20 CDT Marvel Charles [facility] CPT-96438 Level 3 Est. Patient 16:39:43 [facility] Level 3 Est. Patient 16:05:16 CDT Alina Castaneda MD [facility] CPT-52310 Level 3 Est. Patient 00:29:15 CDT Alina Castaneda MD [facility]-04769 Level 3 Est. Patient 10:49:22 [facility] CPT-31384 Level 3 Est. Patient 21:30:19 SANITOR Alina Castaneda MD [facility] CPT-76915 Level 4 Est. Patient 17:04:11 [facility] Level 3 Est. Patient 15:34:11 SANITOR [facility] CPT-27452 Level 2 Est. Patient 12:51:58 SANITOR Alina Castaneda MD [facility] CPT-52264 Level 3 Est. Patient 13:20:01 SANITOR Alina Castaneda MD [facility] CPT-53257 Level 3 Est. Patient 09:23:35 CDT Alina Castaneda MD PhD [facility] Procedures Code Procedure Name Date Entry Date Standard Description CPT-G0439 [facility] Annual Wellness Exam 15:49:52 SANITOR CPT-52262 Level 3 [facility] 13:20:19 CDT CPT-TCMM Transitional Care Mgmt-Moderate 12:32:19 CDT CPT-07457 Level 2 [facility] 09:01:11 CDT CPT-11307 HGBA1C - LAB USE ONLY 09:30:27 SANITOR CPT-05770 BMP - LAB USE ONLY 09:30:27 SANITOR CPT-51804 Venipuncture Draw Fee 09:30:26 SANITOR CPT-TCMM Transitional Care Mgmt-Moderate 10:25:31 CDT CPT-71025 Bladder Scan 14:34:53 CDT CPT-67305 Bladder Scan 14:39:01 SANITOR CPT-TCMM Transitional Care Mgmt-Moderate 10:30:19 SANITOR CPT-55477 Bladder Scan 12:36:44 CDT CPT-97162 Bladder Scan 21:54:06 CDT CPT-G0008 Administration of Influenza Virus Vaccine 13:05:26 CDT CPT-59903 Fluzone Quadrivalent Intramuscular Suspension 0.5 ML 13: 05:26 CDT CPT-00597 Administration single or combination vaccine inc oral 11 :49:51 CDT CPT-13782 Pneumovax 11:49:51 CDT CPT-12311 Ribs unilateral 2V 12:37:22 SANITOR CPT-75750 Chest 2V Frontal and Lat 17:15:26 CDT CPT-71782 Abx/Therapy Injection 18:54:02 CDT CPT-J0696 Rocephin 1000 mg (Ceftriaxone) 16:00:32 CDT CPT-00423 Chest 2V Frontal and Lat 15:26:45 CDT CPT-99860 Chest 2V Frontal and Lat 10:23:27 CDT CPT-55213 Venipuncture Draw Fee 10:11:00 CDT CPT-06496 Administration single or combination vaccine inc oral 11 :56:38 CDT CPT-22309 Influenza split virus > age 3 11:56:38 CDT CPT-35656 Venipuncture Draw Fee 08:49:54 SANITOR CPT-19093 EKG Trac and Interp 17:54:19 SANITOR
--- OUTSIDE RECORDS SUMMARY | 2018-07-02 15:19 | XMS REPORT | Clinical Summary ---
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 Erazo WASH TEST CHECKER Benign paroxysmal positional vertigo Vertigo, benign paroxysmal position 386.11 Inactive Mima Erazo WASH TEST CHECKER Benign paroxysmal positional vertigo High-risk sexual behavior V69.2 Active Alina Castaneda MD PhD High-risk sexual behavior Erectile dysfunction 302.72 Active Alina Castaneda MD PhD Psychosexual dysfunction with inhibited sexual excitement Constipation 564.00 Active Alina Castaneda MD PhD Constipation, unspecified Skin lesion 709.9 Active Alina Castaneda MD PhD Unspecified disorder of skin and subcutaneous tissue Malaise and fatigue 780.79 Active Cherelle Speaks WASH TEST CHECKER Other malaise and fatigue Diarrhea 787.91 Active Cherelle Speaks WASH TEST CHECKER Diarrhea PHARYNGITIS 462 Active Cherelle Speaks WASH TEST CHECKER Acute pharyngitis Colitis 558.9 Active Mima Erazo WASH TEST CHECKER Other and unspecified noninfectious gastroenteritis and colitis WOUND, OPEN, NOSE ICD-873.20 Inactive Alina Castaneda MD PhD DIABETES, TYPE 2 ICD-250.00 Inactive Alina Castaneda MD PhD HYPERTENSION ICD-401.9 Inactive Alina Castaneda MD PhD URI ICD-465.9 Inactive Alina Castaneda MD PhD CHEST PAIN ICD-786.50 Inactive Alina Castaneda MD PhD FH STROKE ICD-V17.1 Inactive Marvel Charles E MAIL SYSTEM ADMINISTRATOR FATIGUE ICD-780.79 Inactive Alina Castaneda MD [...] SQ each evening, for diabetes INSULIN DETEMIR 73757207448 Active Salina ROJAS Active TRUEPLUS LANCETS 30G MISC 3 a day LANCETS 18524561475 Active Marvel MENDOZAP Active TOLTERODINE TARTRATE 2 MG TABS 1 pill twice daily, for bladder TOLTERODINE TARTRATE 82325455376 No Longer Active Vanessa Hickey MD Active AMITIZA 24 MCG ORAL CAPS Take one capsule BID for constipation. LUBIPROSTONE 74375892096 No Longer Active Vanessa Hickey MD Active LOMOTIL 2.5-0.025 MG ORAL TABS take 1-2 tabs PO after each stool, no more than 8 in 24 hours DIPHENOXYLATE-ATROPINE 21162708691 Active Grace ROJAS Active FLUVOXAMINE MALEATE 100 MG ORAL TABS take one tab every AM et HS, and take 1/ 2 tab at noon FLUVOXAMINE MALEATE 01524388154 Active Grace ROJAS Active METOPROLOL SUCCINATE 100 MG [id number]-HWN 1 by mouth daily for blood pressure METOPROLOL SUCCINATE 03191658914 No Longer Active Grace Nelsonb RMA Active METFORMIN HCL ER 500 MG NV99M-YVF Take three tablets by mouth everyday METFORMIN HCL 38796234213 No Longer Active Grace Azam RMA Active LOVAZA 1 GM CAPS 4 daily (for triglycerides) OMEGA-3- ACID ETHYL ESTERS 82409177173 No Longer Active Grace Azam RMA Active TRAZODONE HCL 100 MG ORAL TABS 1 tab by mouth for sleep TRAZODONE HCL 76870271789 No Longer Active Grace Azam RMA Active NOVOFINE 32G X 6 MM MISC use one four times per day INSULIN PEN NEEDLE 69329032345 No Longer Active Grace Azam RMA Active BACTROBAN 2 % CREAM Apply to affected area BID for up to 10 days MUPIROCIN CALCIUM 39055679009 No Longer Active Grace Azam RMA Active ZOFRAN 4 MG TABS 1 po q4hr PRN [place]ause[place] ONDANSETRON HCL 48960723218 Active Salina Han RMA Active KEFLEX 500 MG CAP 1 po BID x 7 days CEPHALEXIN 30796882333 No Longer Active Cherelle Speaks WASH TEST CHECKER Active FLUVOXAMINE MALEATE 100 MG TABS Take one (1) tablet by mouth am, 1/2 at noon FLUVOXAMINE MALEATE 87510340547 No Longer Active Mima Erazo WASH TEST CHECKER Active CORICIDIN HBP CONGESTION/COUGH 10-200 MG ORAL CAPS Take as directed on box as needed for cold/flu symptoms DEXTROMETHORPHAN-GUAIFENESIN 14579395977 Active Cherelle Speaks WASH TEST CHECKER Active OMEGA-3 300 MG ORAL CAPS 4 caps by mouth daily OMEGA-3 FATTY ACIDS 42924463666 Active Cherelle Speaks WASH TEST CHECKER Active FLUVOXAMINE MALEATE 100 MG ORAL TABS Take 1/2 tab at noon FLUVOXAMINE MALEATE 65470821223 No Longer Active Cherelle Avila WASH TEST CHECKER Active [facility] LUBR[facility] E[facility] DROPS 0.4-0.3 % OPHTH SOLN POLYETHYL GLYCOL-PROPYL GLYCOL 02262664559 Active Mima Erazo WASH TEST CHECKER Active CLONAZEPAM 1 MG TABS 1/2 pill by mouth three times daily CLONAZEPAM 93416130980 Active Alina Castaneda MD PhD Active MIRALAX POWD 17g by mouth daily, for constipation POLYETHYLENE GLYCOL 3350 43067754881 Active Alina Castaneda MD PhD Active HYDROCODONE-ACETAMINOPHEN 5-325 MG TABS 2 tabs by mouth three times daily for pain HYDROCODONE-ACETAMINOPHEN 78564091784 Active Mima Erazo WASH TEST CHECKER Active HUMALOG KWIKPEN 100 UNIT/ML SC SOPN 20 units with breakfast, 10 units with lunch, 10 units with dinner, for diabetes INSULIN LISPRO (HUMAN ) 91483879174 Active Alina Castaneda MD PhD Active LATUDA 120 MG ORAL TABS 1 pill by mouth nightly LURASIDONE HCL 24413241505 Active Alina Castaneda MD PhD Active COLACE 100 MG CAPS 1 pill by mouth twice daily, for constipation DOCUSATE SODIUM 47425229850 Active Alina Castaneda MD PhD Active TRUETEST TEST STRP check blood sugars 3x/day GLUCOSE BLOOD 06311021376 Active Marvel Thurstonari E MAIL SYSTEM ADMINISTRATOR Active ACCU-CHEK ROSA UZMA Use device to check blood sugars BLOOD GLUCOSE MONITORING SUPPL 06112061944 No Longer Active Marvel Mackenzieglari LOPEZ Active ACCU-CHEK ROSA INVITR STRP use strips with device to check blood sugars 3 times daily GLUCOSE BLOOD 59195368767 No Longer Active Marvel MENDOZAP Active VERAPAMIL HCL ER 180 MG ORAL CR-TABS 1 pill by mouth twice daily, for migraine prevention VERAPAMIL HCL 79657387878 Active Alina Castaneda MD PhD Active CYCLOBENZAPRINE HCL 10 MG TABS 1 tablet by mouth three times daily, scheduled CYCLOBENZAPRINE HCL 09498226186 No Longer Active Alina Castaneda MD PhD Active HUMALOG 100 UNIT/ML SOLN Take 20 units with breakfast, 10u with lunch and suppetr. INSULIN LISPRO (HUMAN) 93530681721 No Longer Active Alina Castaneda MD PhD Active TRUETEST TEST STRP check sugars 4x/day GLUCOSE BLOOD 71698372079 No Longer Active Alina Castaneda MD PhD Active MORPHINE SULFATE 30 MG TABS 1 pill by mouth twice daily, for pain MORPHINE SULFATE 31582610156 Active Mima Erazo WASH TEST CHECKER Active ACYCLOVIR 400 MG ORAL TABS 1 pill three times daily x 5 days, for cold sore outbreak ACYCLOVIR 17806312586 No Longer Active Alina Castaneda MD PhD Active PENICILLIN V POTASSIUM 500 MG TABS 1 pill by mouth three times daily PENICILLIN V POTASSIUM 09794982296 No Longer Active Alina Castaneda MD PhD Active UROXATRAL 10 MG [id number]-MIE Take 1 tablet by mouth daily ALFUZOSIN HCL 10172760023 No Longer Active Alina Castaneda MD PhD Active THIOTHIXENE 5 MG CAPS by mouth twice a day THIOTHIXENE 62580386176 No Longer Active Alina Castaneda MD PhD Active ZYPREXA 7.5 MG TABS 1 at HS OLANZAPINE 37027921067 No Longer Active Alina Castaneda MD PhD Active BD INSULIN SYRINGE 28G X 1/2" 1 ML MISC 1 four times per day INSULIN SYRINGE-NEEDLE U-100 27497981432 Active [facility] Active DETROL LA 4 MG [id number]-PKR Take 1 tablet by mouth daily TOLTERODINE TARTRATE 62597462947 No Longer Active Alina Castaneda MD PhD Active TERESE CONTOUR TEST STRP monitor blood sugars 3x/day GLUCOSE BLOOD 40370284078 No Longer Active Alina Castaneda MD PhD Active EQL TRUETEST TEST STRP Test blood sugar TID GLUCOSE BLOOD 22312085319 No Longer Active Alina Castaneda MD PhD Active FLUTICASONE PROPIONATE 50 MCG/ACT SUSP 2 sprays each nostril qDay x 30 days FLUTICASONE PROPIONATE 13858617051 No Longer Active Alina Castaneda MD PhD Active IBUPROFEN 200 MG TABS 1 Q 6 hr. PRN IBUPROFEN 85409634267 No Longer Active Alina Castaneda MD PhD Active NIACIN ER 500 MG CR-TABS 4 qHS (for triglycerides) NIACIN 62624623754 No Longer Active Alina Castaneda MD PhD Active ALFUZOSIN HCL ER 10 MG JJ56Z-VBJ 1 tablet daily ALFUZOSIN HCL 45628508858 Active Vanessa Hickey MD Active SAPHRIS 5 MG SUBL by mouth twice a day ASENAPINE MALEATE 52668534996 No Longer Active Maliheh Ziglari E MAIL SYSTEM ADMINISTRATOR Active ACETAMINOPHEN 500 MG TABS 2 Q 6 hr. PRN ACETAMINOPHEN 22307849510 No Longer Active Maliheh Ziglari E MAIL SYSTEM ADMINISTRATOR Active ORPHENADRINE CITRATE ER 100 MG [id number]-NJL 1 every 12 hr. as needed ORPHENADRINE CITRATE 78575800047 No Longer Active Alina Castaneda MD PhD Active NIACIN CR 500 MG CR-TABS 2 qHS NIACIN 44143397537 No Longer Active Alina Castaneda MD PhD Active AMOXICILLIN 500 MG CAPS 2 po BID x 10 days AMOXICILLIN 46955880402 No Longer Active Alina Castaneda MD PhD Active HYDROCODONE-ACETAMINOPHEN 7.5-325 MG TABS 1 four times a day as needed for pain HYDROCODONE-ACETAMINOPHEN 12688348097 No Longer Active Alina Castaneda MD PhD Active DOXEPIN HCL 10 MG CAPS Take 1 tablet by mouth daily DOXEPIN HCL 12035119314 No Longer Active Salina ROJAS Active NAVANE 10 MG CAPS 1/2 tablet twice a day THIOTHIXENE No Longer Active Salina ROBBINSA Active CYCLOBENZAPRINE HCL 10 MG TABS 1/2 tablet by mouth every 8 hours as needed for muscle spasms CYCLOBENZAPRINE HCL 54802012653 No Longer Active Alina Castaneda MD PhD Active BACTROBAN 2 % CREAM apply to ear and nose twice daily MUPIROCIN CALCIUM 26834686900 No Longer Active Alina Castaneda MD PhD Active HYDROCODONE-ACETAMINOPHEN 5-325 MG TABS take one tablet by mouth every four hours as needed for pain HYDROCODONE-ACETAMINOPHEN 68669253502 No Longer Active Alina Castaneda MD PhD Active ZOLPIDEM TARTRATE 10 MG TABS take at bedtime ZOLPIDEM TARTRATE 00248989369 Active Alina Castaneda MD PhD Active ZYPREXA 5 MG TABS take one tablet by mouth every evening OLANZAPINE 76708293236 No Longer Active Alina Castaneda MD PhD Active ALBUTEROL SULFATE 0.083 % NEBU SOLN one vial per nebulizer TID and PRN cough/ soa ALBUTEROL SULFATE 58294498053 No Longer Active Alian Castaneda MD PhD Active GUAIFENESIN 600 MG US69D-LQS 1 tablet by mouth twice daily if needed for cough GUAIFENESIN 87721625325 No Longer Active Marvel MARROQUIN Active AZITHROMYCIN 500 MG SOLR 1 po q day AZITHROMYCIN 81907265112 No Longer Active Alina Castaneda MD PhD Active PROMETHAZINE-CODEINE 6.25-10 MG/5ML SYRP 1 tsp po q 6 hours prn cough PROMETHAZINE-CODEINE 69052033314 No Longer Active Alina Castaneda MD PhD Active CEFDINIR 300 MG CAPS by mouth twice a day CEFDINIR 06264785559 No Longer Active Alina Castaneda MD PhD Active METFORMIN HCL 500 MG DQ91R-[id number] Take 3 tablets by mouth everyday METFORMIN HCL 41939443380 No Longer Active Alina Castaneda MD PhD Active LEVEMIR 100 UNIT/ML SOLN 90 units SQ qHS INSULIN DETEMIR 33032890907 No Longer Active Marvel MARROQUIN Active TOPROL XL 100 MG [id number] 1 @ HS METOPROLOL SUCCINATE 15005286126 No Longer Active Marvel MARROQUIN Active ALLOPURINOL 300 MG TABS Take one by mouth daily ALLOPURINOL 11717557737 Active Alina Castaneda MD PhD Active ZYPREXA 10 MG TABS Take one by mouth daily OLANZAPINE 14722520411 No Longer Active Alina Castaneda MD PhD Active NOVOLOG 100 UNIT/ML SOLN 40 units with every meal INSULIN ASPART 49027192989 No Longer Active Alina Castaneda MD PhD Active VERAPAMIL HCL CR 120 MG TAB CR 1 qPM VERAPAMIL HCL 35128421578 No Longer Active Salina ROJAS Active ZYPREXA 15 MG TABS Take 1 tablet by mouth daily OLANZAPINE 74089032168 No Longer Active Marvel MARROQUIN Active LISINOPRIL 20 MG TABS 1 BID LISINOPRIL 95743172216 Active Alina Castaneda MD PhD Active ALBUTEROL SULFATE (2.5 MG/3ML) 0.083% NEBU 1 neb tid and prn cough ALBUTEROL SULFATE 22482130485 No Longer Active Alina Castaneda MD PhD Active TRAVATAN Z 0.004 % SOLN 1 gtt each eye daily TRAVOPROST 49775795703 Active CRYSTAL Suarez Active LANTUS 100 UNIT/ML SOLN 60 units sq q hs INSULIN GLARGINE 64254350187 No Longer Active CRYSTAL Suarez Active ALBUTEROL SULFATE (2.5 MG/3ML) 0.083% NEBU 1 neb tid and prn cough ALBUTEROL SULFATE (2.5 MG/3ML) 0.083% NEBU 458064 ALBUTEROL SULFATE Inactive ZYPREXA 15 MG TABS Take 1 tablet by mouth daily ZYPREXA 15 MG TABS 459220 OLANZAPINE Inactive VERAPAMIL HCL CR 120 MG TAB CR 1 qPM VERAPAMIL HCL CR 120 MG TAB CR VERAPAMIL HCL Inactive ZYPREXA 10 MG TABS Take one by mouth daily ZYPREXA 10 MG TABS 640194 OLANZAPINE Inactive TOPROL XL 100 MG [id number] 1 @ HS TOPROL XL 100 MG MQ76Q-JRO METOPROLOL SUCCINATE Inactive LEVEMIR 100 UNIT/ML SOLN 90 units SQ qHS LEVEMIR 100 UNIT/ML SOLN INSULIN DETEMIR Inactive PROMETHAZINE-CODEINE 6.25-10 MG/5ML SYRP 1 tsp po q 6 hours prn cough PROMETHAZINE-CODEINE 6.25-10 MG/5ML SYRP 076633 PROMETHAZINE- CODEINE Inactive GUAIFENESIN 600 MG GW76Y-DWO 1 tablet by mouth twice daily if needed for cough GUAIFENESIN 600 MG HR05N-DTB GUAIFENESIN Inactive ALBUTEROL SULFATE 0.083 % NEBU SOLN one vial per nebulizer TID and PRN cough/ soa ALBUTEROL SULFATE 0.083 % NEBU SOLN 882889 ALBUTEROL SULFATE Inactive ZYPREXA 5 MG TABS take one tablet by mouth every evening ZYPREXA 5 MG TABS 159862 OLANZAPINE Inactive HYDROCODONE-ACETAMINOPHEN 5-325 MG TABS take one tablet by mouth every four hours as needed for pain HYDROCODONE-ACETAMINOPHEN 5-325 MG TABS 618880 HYDROCODONE-ACETAMINOPHEN Inactive BACTROBAN 2 % CREAM apply to ear and nose twice daily BACTROBAN 2 % CREAM 916396 MUPIROCIN CALCIUM Inactive CYCLOBENZAPRINE HCL 10 MG TABS 1/2 tablet by mouth every 8 hours as needed for muscle spasms CYCLOBENZAPRINE HCL 10 MG TABS 882652 CYCLOBENZAPRINE HCL Inactive NAVANE 10 MG CAPS 1/2 tablet twice a day NAVANE 10 MG CAPS THIOTHIXENE Inactive DOXEPIN HCL 10 MG CAPS Take 1 tablet by mouth daily DOXEPIN HCL 10 MG CAPS 3811217 DOXEPIN HCL Inactive HYDROCODONE-ACETAMINOPHEN 7.5-325 MG TABS 1 four times a day as needed for pain HYDROCODONE-ACETAMINOPHEN 7.5-325 MG TABS 581977 HYDROCODONE-ACETAMINOPHEN Inactive NIACIN CR 500 MG CR-TABS 2 qHS NIACIN CR 500 MG CR- TABS NIACIN Inactive ORPHENADRINE CITRATE ER 100 MG [id number] 1 every 12 hr. as needed ORPHENADRINE CITRATE ER 100 MG [id number]-RPQ ORPHENADRINE CITRATE Inactive ACETAMINOPHEN 500 MG TABS 2 Q 6 hr. PRN ACETAMINOPHEN 500 MG TABS 943110 ACETAMINOPHEN Inactive SAPHRIS 5 MG SUBL by mouth twice a day SAPHRIS 5 MG SUBL ASENAPINE MALEATE Inactive NIACIN ER 500 MG CR-TABS 4 qHS (for triglycerides) NIACIN ER 500 MG CR-TABS NIACIN Inactive IBUPROFEN 200 MG TABS 1 Q 6 hr. PRN IBUPROFEN 200 MG TABS 015740 IBUPROFEN Inactive FLUTICASONE PROPIONATE 50 MCG/ACT SUSP 2 sprays each nostril qDay x 30 days FLUTICASONE PROPIONATE 50 MCG/ACT SUSP 376519 FLUTICASONE PROPIONATE Inactive EQL TRUETEST TEST STRP Test blood sugar TID EQL TRUETEST TEST STRP GLUCOSE BLOOD Inactive TERESE CONTOUR TEST STRP monitor blood sugars 3x/day TERESE CONTOUR TEST STRP GLUCOSE BLOOD Inactive DETROL LA 4 MG [id number]-PQC Take 1 tablet by mouth daily DETROL LA 4 MG [id number] TOLTERODINE TARTRATE Inactive ZYPREXA 7.5 MG TABS 1 at HS ZYPREXA 7.5 MG TABS 510263 OLANZAPINE Inactive THIOTHIXENE 5 MG CAPS by mouth twice a day THIOTHIXENE 5 MG CAPS 439097 THIOTHIXENE Inactive UROXATRAL 10 MG PF44R-IJT Take 1 tablet by mouth daily UROXATRAL 10 MG DV36Y-HXS ALFUZOSIN HCL Inactive ACYCLOVIR 400 MG ORAL TABS 1 pill three times daily x 5 days, for cold sore outbreak ACYCLOVIR 400 MG ORAL TABS 122255 ACYCLOVIR Inactive TRUETEST TEST STRP check sugars 4x/day TRUETEST TEST STRP GLUCOSE BLOOD Inactive HUMALOG 100 UNIT/ML SOLN Take 20 units with breakfast, 10u with lunch and suppetr. HUMALOG 100 UNIT/ML SOLN INSULIN LISPRO ( HUMAN) Inactive CYCLOBENZAPRINE HCL 10 MG TABS 1 tablet by mouth three times daily, scheduled CYCLOBENZAPRINE HCL 10 MG TABS 893074 CYCLOBENZAPRINE HCL Inactive ACCU-CHEK ROSA INVITR STRP use strips with device to check blood sugars 3 times daily ACCU-CHEK ROSA INVITR STRP GLUCOSE BLOOD Inactive ACCU-CHEK ROSA UZMA Use device to check blood sugars ACCU-CHEK ROSA UZMA BLOOD GLUCOSE MONITORING SUPPL Inactive FLUVOXAMINE MALEATE 100 MG ORAL TABS Take 1/2 tab at noon FLUVOXAMINE MALEATE 100 MG ORAL TABS 947211 FLUVOXAMINE MALEATE Inactive FLUVOXAMINE MALEATE 100 MG TABS Take one (1) tablet by mouth am, 1/2 at noon FLUVOXAMINE MALEATE 100 MG TABS 599722 FLUVOXAMINE MALEATE Inactive BACTROBAN 2 % CREAM Apply to affected area BID for up to 10 days BACTROBAN 2 % CREAM 662440 MUPIROCIN CALCIUM Inactive NOVOFINE 32G X 6 MM MISC use one four times per day NOVOFINE 32G X 6 MM MISC INSULIN PEN NEEDLE Inactive TRAZODONE HCL 100 MG ORAL TABS 1 tab by mouth for sleep TRAZODONE HCL 100 MG ORAL TABS 029948 TRAZODONE HCL Inactive LOVAZA 1 GM CAPS 4 daily (for triglycerides) LOVAZA 1 GM CAPS 099024 UMKWS-5-LBHM ETHYL ESTERS Inactive METFORMIN HCL ER 500 MG FH02F-CZY Take three tablets by mouth everyday METFORMIN HCL ER 500 MG WG99E-PFY METFORMIN HCL Inactive METOPROLOL SUCCINATE 100 MG CR24U-LNN 1 by mouth daily for blood pressure METOPROLOL SUCCINATE 100 MG II92F-TRH METOPROLOL SUCCINATE Inactive AMITIZA 24 MCG ORAL CAPS Take one capsule BID for constipation. AMITIZA 24 MCG ORAL CAPS LUBIPROSTONE Inactive TOLTERODINE TARTRATE 2 MG TABS 1 pill twice daily, for bladder TOLTERODINE TARTRATE 2 MG TABS 466661 TOLTERODINE TARTRATE Inactive CEFDINIR 300 MG CAPS by mouth twice a day CEFDINIR 300 MG CAPS 907204 CEFDINIR Inactive AZITHROMYCIN 500 MG SOLR 1 po q day AZITHROMYCIN 500 MG SOLR 76026707725 AZITHROMYCIN Inactive AMOXICILLIN 500 MG CAPS 2 po BID x 10 days AMOXICILLIN 500 MG CAPS 109712 AMOXICILLIN Inactive PENICILLIN V POTASSIUM 500 MG TABS 1 pill by mouth three times daily PENICILLIN V POTASSIUM 500 MG TABS 868819 PENICILLIN V POTASSIUM Inactive KEFLEX 500 MG CAP 1 po BID x 7 days KEFLEX 500 MG CAP 355468 CEPHALEXIN Inactive Immunizations Vaccine Administration Date Value [...] Fluvirin, Fluarix, Agriflu(>=18 yo)) Fluzone (>3 yrs.) [YIU300] Influenza, seasonal, injectable pneumococcal immunization administered Pneumovax [...] MICROALBUMIN - Chemistry sodium, serum 137 mmol/L 064-844 1330/05/19 potassium, serum 5.2 mmol/L 3.5-5.2 chloride, serum [...] Panel - Chemistry sodium, serum 137 mmol/L 600-235 4870/10/12 potassium, serum 4.8 mmol/L 3.5-5.2 chloride, serum 102 mmol/L 98-107 carbon dioxide, venous blood 27.6 mmol/L 21.0-32.0 blood glucose 168 mg/dL 65-110 calcium, serum 9.0 mg/dL 8.5-10.1 urea nitrogen, blood 15 mg/dL 7-18 creatinine, serum 1.04 mg/dL 0.55-1.30 sodium, serum 138 mmol/L 442-787 7830/11/11 potassium, serum 4.7 mmol/L 3.5-5.2 chloride, serum [...] % 11.6-14.8 platelet count 252 10^3/MM^3 10*3/mm3 618-139 8397/10/12 leukocyte count, blood 5.8 10^3/MM^3 10*3/mm3 4.6-10.2 [...] 240 10^3/MM^3 10*3/mm3 142-424 Lab Report: Chlamydia/GC APTIMA/73533, HIV-1/2 Agn/Dominga/02304, RPR (DX) W ... - Chemistry hepatitis B surface antigen NON-REACTIVE NON-REACTIVE Lab Report: Chlamydia/GC APTIMA/76161, HIV-1/2 Agn/Dominga/21190, RPR (DX) W ... - Lab chlamydia DNA probe NOT DETECTED NOT DETECTED Lab Report: Chlamydia/GC APTIMA/[id number], HIV-1/2 Agn/Dominga/35985, RPR (DX) W ... - Microbiology Neisseria gonorrhoeae DNA probe NOT DETECTED NOT DETECTED Lab Report: Chlamydia/GC APTIMA/12266, HIV-1/2 Agn/Dominga/21985, RPR (DX) W ... - Serology rapid plasma reagin antibody titer NON-REACTIVE NON-REACTIVE Lab Report: HGBA1C - Chemistry hemoglobin A1C, blood, as % of total hemoglobin 6.1 % 4.3-6.0 hemoglobin A1C, blood, as % of total hemoglobin 6.3 % 4.3-6.0 Lab Report: Lipid Panel, HEPATIC PANEL, MICROALBUMIN, CBC - Chemistry cholesterol, serum 131 mg/dL 471-753 0413/06/03 triglyceride, serum, fasting 383 mg/dL 30-200 HDL [...] 4.7 mg/dL 2.6-7.2 cholesterol, serum 142 mg/dL 399-232 1781/06/26 triglyceride, serum, fasting 272 mg/dL 30-200 HDL [...] negative Encounters Code Encounter Date Provider Facility CPT-96372 Level 3 Est. Patient 14:39:00 SENIOR ORACLE DBA Vanessa Hickey MD [facility] CPT-18919 Level 2 Est. Patient 18:43:34 CDT Mima Erazo [facility] CPT-22426 Level 3 Est. Patient 16:22:09 CDT Cherelle Avila [facility] CPT-41180 Level 4 Est. Patient 17:55:14 CDT Mima Erazo [facility] CPT-55981 Level 2 Est. Patient 17:13:21 CDT Alina Castaneda MD PhD [facility] CPT-76210 Level 3 Est. Patient 14:46:15 CDT Vanessa Hickey MD [facility]-95257 Level 3 Est. Patient 09:34:56 CDT Alina Castaneda MD PhD [facility]46192 Level 3 Est. Patient 21:40:19 CDT Mima Erazo [facility] CPT-02557 Level 3 Est. Patient 09:26:40 CDT Marvel [facility]62537 Level 3 Est. Patient 12:36:43 CDT Vanessa Hickey MD [facility]-61945 Level 3 Est. Patient 12:57:49 CDT Vanessa Hickey MD [facility]-88082 Level 3 Est. Patient 00:28:25 CDT Alina Castaneda MD [facility]-00040 Level 2 Est. Patient 12:52:14 CDT Alina Castaneda MD [facility]-66069 Level 3 Est. Patient 11:51:18 SENIOR ORACLE DBA Alina Castaneda MD [facility]-39659 Level 3 Est. Patient 10:09:22 SENIOR ORACLE DBA Alina Castaneda MD [facility]-93110 Level 3 Est. Patient 14:36:26 [facility]-28163 Level 3 Est. Patient 13:34:47 SENIOR ORACLE DBA Alina Castaneda MD [facility]-77404 Level 3 Est. Patient 19:52:08 SENIOR ORACLE DBA Alina Castaneda MD [facility]64339 Level 3 Est. Patient 10:01:51 SENIOR ORACLE DBA Marvel [facility]-98716 Level 3 Est. Patient 21:54:06 CDT Vanessa Hickey MD [facility]-49188 Level 3 Est. Patient 08:54:46 CDT Alina Castaneda MD [facility]-25439 Level 3 Est. Patient 09:32:11 CDT Marvel [facility]-02453 Level 3 Est. Patient 12:02:49 CDT Alina Castaneda MD [facility]08322 Level 3 Est. Patient 19:17:33 CDT Alina Castaneda MD [facility]-58316 Level 3 Est. Patient 13:19:10 CDT Marvel [facility]-63761 Level 3 Est. Patient 08:20:05 CDT Alina Castaneda MD [facility]70708 Level 3 Est. Patient 15:17:18 CDT Alina Castaneda MD [facility]-68663 Level 3 Est. Patient 14:25:36 SENIOR ORACLE DBA Marvel [facility]-27092 Level 3 Est. Patient 10:09:15 SENIOR ORACLE DBA Marvel [facility]-25907 Level 3 Est. Patient 21:28:43 CDT Alina Castaneda MD [facility]-91942 Level 3 Est. Patient 15:20:11 [facility] 4 Est[facility] Patient 19:08:12 CDT Alina Castaneda MD [facility]-78895 Level 3 Est. Patient 15:06:39 CDT Marvel [facility]-14016 Level 4 Est. Patient 17:48:15 CDT Alina Castaneda MD [facility]-85086 Level 3 Est. Patient 14:53:49 CDT Alina Castaneda MD [facility]-91987 Level 3 Est. Patient 09:35:16 CDT Alina Castaneda MD [facility]65037 Level 3 Est. Patient 12:23:22 CDT Alina Castaneda MD [facility]-00282 Level 3 Est. Patient 16:19:15 CDT Alina Castaneda MD [facility]-22455 Level 3 Est. Patient 21:39:56 SENIOR ORACLE DBA Alina Castaneda MD [facility]-72687 Level 4 Est. Patient 14:12:56 SENIOR ORACLE DBA Alina Castaneda MD [facility]96582 Level 2 Est. Patient 15:34:57 SENIOR ORACLE DBA Alina Castaneda MD [facility]04034 Level 3 Est. Patient 12:17:04 SENIOR ORACLE DBA Alina Castaneda MD [facility]94776 Level 3 Est. Patient 09:18:18 SENIOR ORACLE DBA Marvel [facility]-30413 Level 2 Est. Patient 21:50:24 CDT Alina Castaneda MD [facility]85374 Level 3 Est. Patient 09:17:28 CDT Marvel [facility]-97421 Level 4 Est. Patient 18:54:02 CDT Alina Castaneda MD [facility]05660 Level 3 Est. Patient 10:47:10 CDT Alina Castaneda MD [facility] [place]-[id number] Level 3 Est. Patient 09:22:20 CDT [facility]-94648 Level 3 Est. Patient 16:39:43 CDT [facility]-08462 Level 3 Est. Patient 16:05:16 CDT Alina Castaneda MD [facility] [id number] Level 3 Est. Patient 00:29:15 CDT Alina Castaneda MD [facility] [id number] Level 3 Est. Patient 10:49:22 [employer] [facility] CPT-26030 Level 3 Est. Patient 21:30:19 [employer] Alina Castaneda MD [facility] CPT-66995 Level 4 Est. Patient 17:04:11 [employer] [facility] CPT-76444 Level 3 Est. Patient 15:34:11 [employer] [facility] CPT-06485 Level 2 Est. Patient 12:51:58 [employer] Alina Castaneda MD [facility] CPT-53330 Level 3 Est. Patient 13:20:01 [employer] Alina Castaneda MD [facility] CPT-67224 Level 3 Est. Patient 09:23:35 CDT Alina Castaneda MD [facility] Procedures Code Procedure Name Date Entry Date Standard Description [facility]-84182 Bladder Scan 14:39:01 [employer] CPT-TCMM Transitional Care Mgmt-Moderate 10:30:19 [employer] CPT-75184 Bladder Scan 12:36:44 CDT CPT-96432 Bladder Scan 21:54:06 CDT CPT-G0008 Administration of Influenza Virus Vaccine 13:05:26 CDT CPT-24272 Fluzone Quadrivalent Intramuscular Suspension 0.5 ML 13: 05:26 CDT CPT-04532 Administration single or combination vaccine inc oral 11 :49:51 CDT CPT-49085 Pneumovax 11:49:51 CDT CPT-05519 Ribs unilateral 2V 12:37:22 [employer] CPT-41584 Chest 2V Frontal and Lat 17:15:26 CDT CPT-69932 Abx/Therapy Injection 18:54:02 CDT CPT-J0696 Rocephin 1000 mg (Ceftriaxone) 16:00:32 CDT CPT-38838 Chest 2V Frontal and Lat 15:26:45 CDT CPT-68318 Chest 2V Frontal and Lat 10:23:27 CDT CPT-11028 Venipuncture Draw Fee 10:11:00 CDT CPT-42631 Administration single or combination vaccine inc oral 11 :56:38 CDT CPT-71321 Influenza split virus > age 3 11:56:38 CDT CPT-53962 Venipuncture Draw Fee 08:49:54 [employer] CPT-37206 EKG Trac and Interp 17:54:19 [employer]
--- OUTSIDE RECORDS SUMMARY | 2018-07-02 15:21 | XMS REPORT | Clinical Summary ---
Author Author Admin, TERELL Organization [facility] Address Unknown Phone Unavailable Allergies, Adverse Reactions, 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 Erazo OPHTHALMIC MEDICAL TECHNOLOGIST Benign paroxysmal positional vertigo Vertigo, benign paroxysmal position 386.11 Inactive Mima Erazo OPHTHALMIC MEDICAL TECHNOLOGIST Benign paroxysmal positional vertigo High-risk sexual behavior V69.2 Active Alina Castaneda MD PhD High-risk sexual behavior Erectile dysfunction 302.72 Active Alina Castaneda MD PhD Psychosexual dysfunction with inhibited sexual excitement Constipation 564.00 Active Alina Castaneda MD PhD Constipation, unspecified Skin lesion 709.9 Active Alina Castaneda MD PhD Unspecified disorder of skin and subcutaneous tissue Malaise and fatigue 780.79 Active Cherelle Speaks OPHTHALMIC MEDICAL TECHNOLOGIST Other malaise and fatigue Diarrhea 787.91 Active Cherelle Speaks OPHTHALMIC MEDICAL TECHNOLOGIST Diarrhea PHARYNGITIS 462 Active Cherelle Speaks OPHTHALMIC MEDICAL TECHNOLOGIST Acute pharyngitis Colitis 558.9 Active Mima Erazo OPHTHALMIC MEDICAL TECHNOLOGIST Other and unspecified noninfectious gastroenteritis and colitis [...] Patient Instruction EFFEXOR XR 37.5 MG ORAL [id number] Take one by mouth daily VENLAFAXINE HCL 30863913785 Active Mima Vadimum ALBAN Active TRAVATAN Z 0.004 % OPHTH SOLN 1 drop each eye daily TRAVOPROST 94176572500 Active Mima Yokum OPHTHALMIC MEDICAL TECHNOLOGIST Active FLUVOXAMINE MALEATE 50 MG ORAL TABS 1 tab by mouth daily FLUVOXAMINE MALEATE 57723209021 No Longer Active Mima Vadimum ALBAN Active MORPHINE SULFATE ER 30 MG ORAL CR-TABS Take one capsule BID MORPHINE SULFATE 56508931790 Active Mima Yokum OPHTHALMIC MEDICAL TECHNOLOGIST Active TRUEPLUS LANCETS 30G MISC 3x a day LANCETS 04682146733 Active Marvel Charles MANAGEMENT TECH Active TRUE METRIX METER W/DEVICE KIT Check blood sugars 3x/day BLOOD GLUCOSE MONITORING SUPPL 78318915652 Active Marvel Mackenzieglari MANAGEMENT TECH Active TRUE METRIX BLOOD GLUCOSE TEST INVITR STRP Check blood sugars 3x/day. GLUCOSE BLOOD 11372761597 Active Marvel Mackenzieglari MANAGEMENT TECH Active VITAMIN D 2000 UNIT ORAL CAPS Take one by mouth daily CHOLECALCIFEROL 83658625998 Active Mima Yokum OPHTHALMIC MEDICAL TECHNOLOGIST Active LATUDA 60 MG ORAL TABS Take one by mouth daily LURASIDONE HCL 57141015703 No Longer Active Mima Yokum OPHTHALMIC MEDICAL TECHNOLOGIST Active HUMALOG KWIKPEN 100 UNIT/ML SC SOPN sliding scale if needed INSULIN LISPRO (HUMAN) 29394832353 Active Mima Yokum OPHTHALMIC MEDICAL TECHNOLOGIST Active TRAZODONE HCL 100 MG TABS 1 every night to prevent headaches TRAZODONE HCL 51685335900 Active Gabrielle Madl SHERIFF'S SERGEANT Active LATUDA 60 MG ORAL TABS 1 tab daily LURASIDONE HCL 51865526084 Active Gabrielle Madl SHERIFF'S SERGEANT Active CLONAZEPAM 1 MG TABS 1 pill by mouth three times daily CLONAZEPAM 93647644070 Active Gabrielle Madl SHERIFF'S SERGEANT Active [facility] MILK OF MAGNESIA 400 MG/5ML ORAL SUSP 30ml by mouth bid prn MAGNESIUM HYDROXIDE 68823668296 Active Mason Loredo MD Active TYLENOL 8 HOUR 650 MG ORAL CR-TABS 1 tab QID prn ACETAMINOPHEN 59572267876 Active Mason Loredo MD Active MYLANTA GAS RELIEF MAXIMUM STR 125 MG ORAL CAPS 30cc every 4 hours prn 12/01 SIMETHICONE 07156122239 Active Mason Loredo MD Active IMODIUM A-D 2 MG ORAL TABS 1 tab QID as needed LOPERAMIDE HCL 22921174658 Active Mason Loredo MD Active TRAVATAN Z 0.004 % SOLN 1 gtt each eye daily TRAVOPROST 68448240022 No Longer Active Mason Loredo MD Active LISINOPRIL 20 MG TABS 1 BID LISINOPRIL 34783037209 No Longer Active Mason Loredo MD Active LEVEMIR FLEXTOUCH 100 UNIT/ML SC SOPN 60 units SQ each evening, for diabetes INSULIN DETEMIR 29169542369 Active Mima Erazo APRN Active ZOLPIDEM TARTRATE 10 MG TABS take at bedtime ZOLPIDEM TARTRATE 96029668061 No Longer Active Mason Loredo MD Active HYDROCODONE-ACETAMINOPHEN 5-325 MG TABS 2 tabs by mouth three times daily for pain HYDROCODONE-ACETAMINOPHEN 93139524198 No Longer Active Mason Loredo MD Active ZOFRAN 4 MG TABS 1 po q4hr PRN Nausea ONDANSETRON HCL 07796673833 No Longer Active Mason Loredo MD Active LOMOTIL 2.5-0.025 MG ORAL TABS take 1-2 tabs PO after each stool, no more than 8 in 24 hours DIPHENOXYLATE-ATROPINE 12833155485 No Longer Active Mason Loredo MD Active COLACE 100 MG CAPS 1 pill by mouth twice daily, for constipation DOCUSATE SODIUM 14063488720 No Longer Active Mima Erazo APRN Active FLONASE ALLERGY RELIEF 50 MCG/ACT NASAL SUSP One spray each nostril BID x 1 week then daily FLUTICASONE PROPIONATE 11658945846 Active Mima Erazo APRN Active BD PEN NEEDLE MINI U/F 31G X 5 MM MISC 4 a day INSULIN PEN NEEDLE 85392325637 Active Marvel MARROQUIN Active AMITIZA 24 MCG ORAL CAPS Take one capsule BID for constipation LUBIPROSTONE 05864779678 Active Mima Erazo APRN Active TRUEPLUS LANCETS 30G MISC 3 a day LANCETS 93546252918 Active Marvel MARROQUIN Active TOLTERODINE TARTRATE 2 MG TABS 1 pill twice daily, for bladder TOLTERODINE TARTRATE 28132064097 No Longer Active Vanessa Hickey MD Active AMITIZA 24 MCG ORAL CAPS Take one capsule BID for constipation. LUBIPROSTONE 17278256963 No Longer Active Vanessa Hickey MD Active FLUVOXAMINE MALEATE 100 MG ORAL TABS take one tab every AM et HS, and take 1/ 2 tab at noon FLUVOXAMINE MALEATE 51281847490 Active Grace Azam RMA Active METOPROLOL SUCCINATE 100 MG [id number] 1 by mouth daily for blood pressure METOPROLOL SUCCINATE 35040841058 No Longer Active Grace Azam RMA Active METFORMIN HCL ER 500 MG [id number] Take three tablets by mouth everyday METFORMIN HCL 38591862981 No Longer Active Grace Azam RMA Active LOVAZA 1 GM CAPS 4 daily (for triglycerides) OMEGA-3- ACID ETHYL ESTERS 66857237775 No Longer Active Grace Azam RMA Active TRAZODONE HCL 100 MG ORAL TABS 1 tab by mouth for sleep TRAZODONE HCL 87298313418 No Longer Active Grace Azam RMA Active NOVOFINE 32G X 6 MM MISC use one four times per day INSULIN PEN NEEDLE 56621640889 No Longer Active Grace Azam RMA Active BACTROBAN 2 % CREAM Apply to affected area BID for up to 10 days MUPIROCIN CALCIUM 14066992292 No Longer Active Grace Azam RMA Active KEFLEX 500 MG CAP 1 po BID x 7 days CEPHALEXIN 56857026233 No Longer Active Cherelle Avila APRN Active FLUVOXAMINE MALEATE 100 MG TABS Take one (1) tablet by mouth am, 1/2 at noon FLUVOXAMINE MALEATE 52937601525 No Longer Active Mimacecily Erazo OPHTHALMIC MEDICAL TECHNOLOGIST Active CORICIDIN HBP CONGESTION/COUGH 10-200 MG ORAL CAPS Take as directed on box as needed for cold/flu symptoms DEXTROMETHORPHAN-GUAIFENESIN 82814885070 Active Cherelle Speaks OPHTHALMIC MEDICAL TECHNOLOGIST Active OMEGA-3 300 MG ORAL CAPS 4 caps by mouth daily OMEGA-3 FATTY ACIDS 56179409747 Active Mima Yokum OPHTHALMIC MEDICAL TECHNOLOGIST Active FLUVOXAMINE MALEATE 100 MG ORAL TABS Take 1/2 tab at noon FLUVOXAMINE MALEATE 52550684755 No Longer Active Cherelle Avila ALBAN Active [facility] LUBRICANT EYE DROPS 0.4-0.3 % OPHTH SOLN POLYETHYL GLYCOL-PROPYL GLYCOL 68621343664 Active Mima Erazo OPHTHALMIC MEDICAL TECHNOLOGIST Active MIRALAX POWD 17g by mouth daily, for constipation POLYETHYLENE GLYCOL 3350 09700629141 Active Alina Castaneda MD PhD Active TRUETEST TEST STRP check blood sugars 3x/day GLUCOSE BLOOD 07157590729 Active Maliheh Ziglari MANAGEMENT TECH Active ACCU-CHEK ROSA UZMA Use device to check blood sugars BLOOD GLUCOSE MONITORING SUPPL 57941993822 No Longer Active Maliheh Ziglari MANAGEMENT TECH Active ACCU-CHEK ROSA INVITR STRP use strips with device to check blood sugars 3 times daily GLUCOSE BLOOD 93059772883 No Longer Active MalReveneweh Ziglari MANAGEMENT TECH Active VERAPAMIL HCL ER 180 MG ORAL CR-TABS 1 pill by mouth twice daily, for migraine prevention VERAPAMIL HCL 76693983517 Active Mima Erazo APRN Active CYCLOBENZAPRINE HCL 10 MG TABS 1 tablet by mouth three times daily, scheduled CYCLOBENZAPRINE HCL 04012230528 No Longer Active Alina Castaneda MD PhD Active HUMALOG 100 UNIT/ML SOLN Take 20 units with breakfast, 10u with lunch and suppetr. INSULIN LISPRO (HUMAN) 50418211478 No Longer Active Alina Castaneda MD PhD Active TRUETEST TEST STRP check sugars 4x/day GLUCOSE BLOOD 24956747245 No Longer Active Alina Castaneda MD PhD Active MORPHINE SULFATE 30 MG TABS 1 pill by mouth twice daily, for pain MORPHINE SULFATE 98042573476 No Longer Active Mason Loredo MD Active ACYCLOVIR 400 MG ORAL TABS 1 pill three times daily x 5 days, for cold sore outbreak ACYCLOVIR 68047735690 No Longer Active Alina Castaneda MD PhD Active PENICILLIN V POTASSIUM 500 MG TABS 1 pill by mouth three times daily PENICILLIN V POTASSIUM 47375244492 No Longer Active Alina Castaneda MD PhD Active UROXATRAL 10 MG [id number] Take 1 tablet by mouth daily ALFUZOSIN HCL 23127540782 No Longer Active Alina Castaneda MD PhD Active THIOTHIXENE 5 MG CAPS by mouth twice a day THIOTHIXENE 21008889686 No Longer Active Alina Castaneda MD PhD Active ZYPREXA 7.5 MG TABS 1 at HS OLANZAPINE 11059962351 No Longer Active Alina Castaneda MD PhD Active BD INSULIN SYRINGE 28G X 1/2" 1 ML MISC 1 four times per day INSULIN SYRINGE-NEEDLE U-100 91476357472 Active Marvel Charles MANAGEMENT TECH Active DETROL LA 4 MG [id number] Take 1 tablet by mouth daily TOLTERODINE TARTRATE 08738998073 No Longer Active Alina Castaneda MD PhD Active TERESE CONTOUR TEST STRP monitor blood sugars 3x/day GLUCOSE BLOOD 79493954133 No Longer Active Alina Castaneda MD PhD Active EQL TRUETEST TEST STRP Test blood sugar TID GLUCOSE BLOOD 05582139538 No Longer Active Alina Castaneda MD PhD Active FLUTICASONE PROPIONATE 50 MCG/ACT SUSP 2 sprays each nostril qDay x 30 days FLUTICASONE PROPIONATE 76210391827 No Longer Active Alina Castaneda MD PhD Active IBUPROFEN 200 MG TABS 1 Q 6 hr. PRN IBUPROFEN 60570510425 No Longer Active Alina Castaneda MD PhD Active NIACIN ER 500 MG CR-TABS 4 qHS (for triglycerides) NIACIN 52429593706 No Longer Active Alina Castaneda MD PhD Active ALFUZOSIN HCL ER 10 MG [id number] 1 tablet daily ALFUZOSIN HCL 94099927975 Active Mima Erazo OPHTHALMIC MEDICAL TECHNOLOGIST Active SAPHRIS 5 MG SUBL by mouth twice a day ASENAPINE MALEATE 37549662509 No Longer Active Marvel Mackenzieglari MANAGEMENT TECH Active ACETAMINOPHEN 500 MG TABS 2 Q 6 hr. PRN ACETAMINOPHEN 90670811755 No Longer Active Maliheh Ziglari MANAGEMENT TECH Active ORPHENADRINE CITRATE ER 100 MG [id number] 1 every 12 hr. as needed ORPHENADRINE CITRATE 64252372639 No Longer Active Alina Castaneda MD PhD Active NIACIN CR 500 MG CR-TABS 2 qHS NIACIN 83852044483 No Longer Active Alina Castaneda MD PhD Active AMOXICILLIN 500 MG CAPS 2 po BID x 10 days AMOXICILLIN 64908336613 No Longer Active Alina Castaneda MD PhD Active HYDROCODONE-ACETAMINOPHEN 7.5-325 MG TABS 1 four times a day as needed for pain HYDROCODONE-ACETAMINOPHEN 14557439196 No Longer Active Alina Castaneda MD PhD Active DOXEPIN HCL 10 MG CAPS Take 1 tablet by mouth daily DOXEPIN HCL 87206048636 No Longer Active Salina Han [facility] Active NAVANE 10 MG CAPS 1/2 tablet twice a day THIOTHIXENE No Longer Active Salina Han [facility] Active CYCLOBENZAPRINE HCL 10 MG TABS 1/2 tablet by mouth every 8 hours as needed for muscle spasms CYCLOBENZAPRINE HCL 67595091195 No Longer Active Alina Castaneda MD PhD Active BACTROBAN 2 % CREAM apply to ear and nose twice daily MUPIROCIN CALCIUM 10008134083 No Longer Active Alina Castaneda MD PhD Active HYDROCODONE-ACETAMINOPHEN 5-325 MG TABS take one tablet by mouth every four hours as needed for pain HYDROCODONE-ACETAMINOPHEN 38257521681 No Longer Active Alina Castaneda MD PhD Active ZYPREXA 5 MG TABS take one tablet by mouth every evening OLANZAPINE 85190099744 No Longer Active Alina Castaneda MD PhD Active ALBUTEROL SULFATE 0.083 % NEBU SOLN one vial per nebulizer TID and PRN cough/ soa ALBUTEROL SULFATE 62465295620 No Longer Active Alina Castaneda MD PhD Active GUAIFENESIN 600 MG [id number] 1 tablet by mouth twice daily if needed for cough GUAIFENESIN 28621533275 No Longer Active Marvel MARROQUIN Active AZITHROMYCIN 500 MG SOLR 1 po q day AZITHROMYCIN 88297050773 No Longer Active Alina Castaneda MD PhD Active PROMETHAZINE-CODEINE 6.25-10 MG/5ML SYRP 1 tsp po q 6 hours prn cough PROMETHAZINE-CODEINE 99903319120 No Longer Active Alina Castaneda MD PhD Active CEFDINIR 300 MG CAPS by mouth twice a day CEFDINIR 37101571927 No Longer Active Alina Castaneda MD PhD Active METFORMIN HCL 500 MG [id number] Take 3 tablets by mouth everyday METFORMIN HCL 43718359586 No Longer Active Alina Castaneda MD PhD Active LEVEMIR 100 UNIT/ML SOLN 90 units SQ qHS INSULIN DETEMIR 24789028364 No Longer Active Marvel MARROQUIN Active TOPROL XL 100 MG [id number] 1 @ HS METOPROLOL SUCCINATE 88006257460 No Longer Active Marvel MARROQUIN Active ALLOPURINOL 300 MG TABS Take one by mouth daily ALLOPURINOL 18436327131 Active Mima Yoeloinaum OPHTHALMIC MEDICAL TECHNOLOGIST Active ZYPREXA 10 MG TABS Take one by mouth daily OLANZAPINE 85011893895 No Longer Active Alina Castaneda MD PhD Active NOVOLOG 100 UNIT/ML SOLN 40 units with every meal INSULIN ASPART 92300855618 No Longer Active Alina Castaneda MD PhD Active VERAPAMIL HCL CR 120 MG TAB CR 1 qPM VERAPAMIL HCL 23202536909 No Longer Active Salina Han RMA Active ZYPREXA 15 MG TABS Take 1 tablet by mouth daily OLANZAPINE 18506387405 No Longer Active Marvel MENDOZAP Active ALBUTEROL SULFATE (2.5 MG/3ML) 0.083% NEBU 1 neb tid and prn cough ALBUTEROL SULFATE 14180152290 No Longer Active Alina Castaneda MD PhD Active LANTUS 100 UNIT/ML SOLN 60 units sq q hs INSULIN GLARGINE 75541285747 No Longer Active CRYSTAL Suarez Active ALBUTEROL SULFATE (2.5 MG/3ML) 0.083% NEBU 1 neb tid and prn cough ALBUTEROL SULFATE (2.5 MG/3ML) 0.083% NEBU 177051 ALBUTEROL SULFATE Inactive ZYPREXA 15 MG TABS Take 1 tablet by mouth daily ZYPREXA 15 MG TABS 494867 OLANZAPINE Inactive VERAPAMIL HCL CR 120 MG TAB CR 1 qPM VERAPAMIL HCL CR 120 MG TAB CR VERAPAMIL HCL Inactive ZYPREXA 10 MG TABS Take one by mouth daily ZYPREXA 10 MG TABS 666093 OLANZAPINE Inactive TOPROL XL 100 MG [id number] 1 @ HS TOPROL XL 100 MG [id number] METOPROLOL SUCCINATE Inactive LEVEMIR 100 UNIT/ML SOLN 90 units SQ qHS LEVEMIR 100 UNIT/ML SOLN INSULIN DETEMIR Inactive PROMETHAZINE-CODEINE 6.25-10 MG/5ML SYRP 1 tsp po q 6 hours prn cough PROMETHAZINE-CODEINE 6.25-10 MG/5ML SYRP 566546 PROMETHAZINE- CODEINE Inactive GUAIFENESIN 600 MG [id number] 1 tablet by mouth twice daily if needed for cough GUAIFENESIN 600 MG IA64H-BVE GUAIFENESIN Inactive ALBUTEROL SULFATE 0.083 % NEBU SOLN one vial per nebulizer TID and PRN cough/ soa ALBUTEROL SULFATE 0.083 % NEBU SOLN 733198 ALBUTEROL SULFATE Inactive ZYPREXA 5 MG TABS take one tablet by mouth every evening ZYPREXA 5 MG TABS 706358 OLANZAPINE Inactive HYDROCODONE-ACETAMINOPHEN 5-325 MG TABS take one tablet by mouth every four hours as needed for pain HYDROCODONE-ACETAMINOPHEN 5-325 MG TABS 002878 HYDROCODONE-ACETAMINOPHEN Inactive BACTROBAN 2 % CREAM apply to ear and nose twice daily BACTROBAN 2 % CREAM 191511 MUPIROCIN CALCIUM Inactive CYCLOBENZAPRINE HCL 10 MG TABS 1/2 tablet by mouth every 8 hours as needed for muscle spasms CYCLOBENZAPRINE HCL 10 MG TABS 868392 CYCLOBENZAPRINE HCL Inactive NAVANE 10 MG CAPS 1/2 tablet twice a day NAVANE 10 MG CAPS THIOTHIXENE Inactive DOXEPIN HCL 10 MG CAPS Take 1 tablet by mouth daily DOXEPIN HCL 10 MG CAPS 2651535 DOXEPIN HCL Inactive HYDROCODONE-ACETAMINOPHEN 7.5-325 MG TABS 1 four times a day as needed for pain HYDROCODONE-ACETAMINOPHEN 7.5-325 MG TABS 844003 HYDROCODONE-ACETAMINOPHEN Inactive NIACIN CR 500 MG CR-TABS 2 qHS NIACIN CR 500 MG CR- TABS NIACIN Inactive ORPHENADRINE CITRATE ER 100 MG [id number] 1 every 12 hr. as needed ORPHENADRINE CITRATE ER 100 MG [id number] ORPHENADRINE CITRATE Inactive ACETAMINOPHEN 500 MG TABS 2 Q 6 hr. PRN ACETAMINOPHEN 500 MG TABS 937480 ACETAMINOPHEN Inactive SAPHRIS 5 MG SUBL by mouth twice a day SAPHRIS 5 MG SUBL ASENAPINE MALEATE Inactive NIACIN ER 500 MG CR-TABS 4 qHS (for triglycerides) NIACIN ER 500 MG CR-TABS NIACIN Inactive IBUPROFEN 200 MG TABS 1 Q 6 hr. PRN IBUPROFEN 200 MG TABS 994779 IBUPROFEN Inactive FLUTICASONE PROPIONATE 50 MCG/ACT SUSP 2 sprays each nostril qDay x 30 days FLUTICASONE PROPIONATE 50 MCG/ACT SUSP 0357561 FLUTICASONE PROPIONATE Inactive EQL TRUETEST TEST STRP Test blood sugar TID EQL TRUETEST TEST STRP GLUCOSE BLOOD Inactive TERESE CONTOUR TEST STRP monitor blood sugars 3x/day TERESE CONTOUR TEST STRP GLUCOSE BLOOD Inactive DETROL LA 4 MG [id number] Take 1 tablet by mouth daily DETROL LA 4 MG [id number] TOLTERODINE TARTRATE Inactive ZYPREXA 7.5 MG TABS 1 at HS ZYPREXA 7.5 MG TABS 417492 OLANZAPINE Inactive THIOTHIXENE 5 MG CAPS by mouth twice a day THIOTHIXENE 5 MG CAPS 233851 THIOTHIXENE Inactive UROXATRAL 10 MG [id number] Take 1 tablet by mouth daily UROXATRAL 10 MG [id number] ALFUZOSIN HCL Inactive ACYCLOVIR 400 MG ORAL TABS 1 pill three times daily x 5 days, for cold sore outbreak ACYCLOVIR 400 MG ORAL TABS 746427 ACYCLOVIR Inactive TRUETEST TEST STRP check sugars 4x/day TRUETEST TEST STRP GLUCOSE BLOOD Inactive HUMALOG 100 UNIT/ML SOLN Take 20 units with breakfast, 10u with lunch and suppetr. HUMALOG 100 UNIT/ML SOLN INSULIN LISPRO ( HUMAN) Inactive CYCLOBENZAPRINE HCL 10 MG TABS 1 tablet by mouth three times daily, scheduled CYCLOBENZAPRINE HCL 10 MG TABS 639966 CYCLOBENZAPRINE HCL Inactive ACCU-CHEK ROSA INVITR STRP use strips with device to check blood sugars 3 times daily ACCU-CHEK ROSA INVITR STRP GLUCOSE BLOOD Inactive ACCU-CHEK ROSA UZMA Use device to check blood sugars ACCU-CHEK ROSA UZMA BLOOD GLUCOSE MONITORING SUPPL Inactive FLUVOXAMINE MALEATE 100 MG ORAL TABS Take 1/2 tab at noon FLUVOXAMINE MALEATE 100 MG ORAL TABS 855637 FLUVOXAMINE MALEATE Inactive FLUVOXAMINE MALEATE 100 MG TABS Take one (1) tablet by mouth am, 1/2 at noon FLUVOXAMINE MALEATE 100 MG TABS 823795 FLUVOXAMINE MALEATE Inactive BACTROBAN 2 % CREAM Apply to affected area BID for up to 10 days BACTROBAN 2 % CREAM 655686 MUPIROCIN CALCIUM Inactive NOVOFINE 32G X 6 MM MISC use one four times per day NOVOFINE 32G X 6 MM MISC INSULIN PEN NEEDLE Inactive TRAZODONE HCL 100 MG ORAL TABS 1 tab by mouth for sleep TRAZODONE HCL 100 MG ORAL TABS 591343 TRAZODONE HCL Inactive LOVAZA 1 GM CAPS 4 daily (for triglycerides) LOVAZA 1 GM CAPS 072780 PUWFV-5-[id number] ETHYL ESTERS Inactive METFORMIN HCL ER 500 MG IH99A-QNT Take three tablets by mouth everyday METFORMIN HCL ER 500 MG [id number] METFORMIN HCL Inactive METOPROLOL SUCCINATE 100 MG FC23E-NRV 1 by mouth daily for blood pressure METOPROLOL SUCCINATE 100 MG [id number]-OPR METOPROLOL SUCCINATE Inactive AMITIZA 24 MCG ORAL CAPS Take one capsule BID for constipation. AMITIZA 24 MCG ORAL CAPS LUBIPROSTONE Inactive TOLTERODINE TARTRATE 2 MG TABS 1 pill twice daily, for bladder TOLTERODINE TARTRATE 2 MG TABS 271692 TOLTERODINE TARTRATE Inactive COLACE 100 MG CAPS 1 pill by mouth twice daily, for constipation COLACE 100 MG CAPS 8347224 DOCUSATE SODIUM Inactive LOMOTIL 2.5-0.025 MG ORAL TABS take 1-2 tabs PO after each stool, no more than 8 in 24 hours LOMOTIL 2.5-0.025 MG ORAL TABS 0335083 DIPHENOXYLATE-ATROPINE Inactive ZOFRAN 4 MG TABS 1 po q4hr PRN Nausea ZOFRAN 4 MG TABS 583768 ONDANSETRON HCL Inactive HYDROCODONE-ACETAMINOPHEN 5-325 MG TABS 2 tabs by mouth three times daily for pain HYDROCODONE-ACETAMINOPHEN 5-325 MG TABS 294856 HYDROCODONE-ACETAMINOPHEN Inactive ZOLPIDEM TARTRATE 10 MG TABS take at bedtime ZOLPIDEM TARTRATE 10 MG TABS 190072 ZOLPIDEM TARTRATE Inactive LISINOPRIL 20 MG TABS 1 BID LISINOPRIL 20 MG TABS 353630 LISINOPRIL Inactive TRAVATAN Z 0.004 % SOLN 1 gtt each eye daily TRAVATAN Z 0.004 % SOLN TRAVOPROST Inactive LATUDA 60 MG ORAL TABS Take one by mouth daily LATUDA 60 MG ORAL TABS LURASIDONE HCL Inactive FLUVOXAMINE MALEATE 50 MG ORAL TABS 1 tab by mouth daily FLUVOXAMINE MALEATE 50 MG ORAL TABS 114306 FLUVOXAMINE MALEATE Inactive CEFDINIR 300 MG CAPS by mouth twice a day CEFDINIR 300 MG CAPS 463784 CEFDINIR Inactive AZITHROMYCIN 500 MG SOLR 1 po q day AZITHROMYCIN 500 MG SOLR 71089301424 AZITHROMYCIN Inactive AMOXICILLIN 500 MG CAPS 2 po BID x 10 days AMOXICILLIN 500 MG CAPS 115710 AMOXICILLIN Inactive PENICILLIN V POTASSIUM 500 MG TABS 1 pill by mouth three times daily PENICILLIN V POTASSIUM 500 MG TABS 075721 PENICILLIN V POTASSIUM Inactive KEFLEX 500 MG CAP 1 po BID x 7 days KEFLEX 500 MG CAP 547083 CEPHALEXIN Inactive Immunizations Vaccine Administration Date Value [...] Fluvirin, Fluarix, Agriflu(>=18 yo)) Fluzone (>3 yrs.) [[id number]] Influenza, seasonal, injectable pneumococcal immunization administered Pneumovax [...] HGBA1C - Chemistry sodium, serum 140 mmol/L 270-502 9236/11/09 potassium, serum 4.0 mmol/L 3.5-5.2 chloride, serum [...] Acid - Chemistry cholesterol, serum 187 mg/dL 771-670 3130/06/14 triglyceride, serum, fasting 246 mg/dL 30-200 HDL [...] negative Encounters Code Encounter Date Provider Facility CPT-16361 Level 3 Est. Patient 09:12:14 MOUNTING INSPECTOR Mima Erazo [facility] CPT-25598 Level 3 Est. Patient 16:52:51 CDT Vanessa Hickey MD [facility] CPT-32416 Level 3 Est. Patient 17:40:16 CDT Mima Erazo [facility] CPT-04488 Level 3 Est. Patient 14:34:52 CDT Vanessa Hickey MD [facility] CPT-39491 Level 3 Est. Patient 16:27:51 CDT Mima Erazo [facility] CPT-24097 Level 3 Est. Patient 14:39:00 MOUNTING INSPECTOR Vanessa Hickey MD [facility] CPT-20125 Level 2 Est. Patient 18:43:34 CDT Mima Erazo [facility] CPT-04337 Level 3 Est. Patient 16:22:09 CDT Cherelle Avila [facility] CPT-37097 Level 4 Est. Patient 17:55:14 CDT Mima Erazo [facility] CPT-91178 Level 2 Est. Patient 17:13:21 CDT Alina Castaneda MD [facility]-62082 Level 3 Est. Patient 14:46:15 CDT Vanessa Hickey MD [facility]-84430 Level 3 Est. Patient 09:34:56 CDT Alina Castaneda MD [facility]-89799 Level 3 Est. Patient 21:40:19 CDT Mima Erazo [facility] CPT-20030 Level 3 Est. Patient 09:26:40 CDT Marvel Charles [facility]-74730 Level 3 Est. Patient 12:36:43 CDT Vanessa Hickey MD [facility]-01658 Level 3 Est. Patient 12:57:49 CDT Vanessa Hickey MD [facility]-65386 Level 3 Est. Patient 00:28:25 CDT Ailna Castaneda MD [facility]-93225 Level 2 Est. Patient 12:52:14 CDT Alina Castaneda MD [facility]-18516 Level 3 Est. Patient 11:51:18 MOUNTING INSPECTOR Alina Castaneda MD [facility]-02556 Level 3 Est. Patient 10:09:22 MOUNTING INSPECTOR Alina Castaneda MD [facility]-20687 Level 3 Est. Patient 14:36:26 MOUNTING INSPECTOR [facility] Est[facility] Patient 13:34:47 MOUNTING INSPECTOR Alina Castaneda MD [facility]-65287 Level 3 Est. Patient 19:52:08 MOUNTING INSPECTOR Alina Castaneda MD [facility] [place] Level 3 Est. Patient 10:01:51 MOUNTING INSPECTOR Marvel Araceli [facility]-19568 Level 3 Est. Patient 21:54:06 CDT Vanessa Hickey MD [facility]-22344 Level 3 Est. Patient 08:54:46 CDT Alina Castaneda MD [facility] [place] Level 3 Est. Patient 09:32:11 [facility]-56211 Level 3 Est. Patient 12:02:49 CDT Alina Castaneda MD [facility]-64330 Level 3 Est. Patient 19:17:33 CDT Alina Castaneda MD [facility] [place] Level 3 Est. Patient 13:19:10 CDT Marvel Charles [facility]-47485 Level 3 Est. Patient 08:20:05 CDT Alina Castaneda MD [facility]-14052 Level 3 Est. Patient 15:17:18 CDT Alina Castaneda MD [facility]-98590 Level 3 Est. Patient 14:25:36 MOUNTING INSPECTOR Marvel Charles [facility] [facility] [id number] Level 3 Est. Patient 10:09:15 MOUNTING INSPECTOR Marvel Charles [facility]-86548 Level 3 Est. Patient 21:28:43 CDT Alina Castaneda MD [facility] [id number] Level 3 Est. Patient 15:20:11 CDT Marvel Charles [facility] CPT-39329 Level 4 Est. Patient 19:08:12 CDT Alina Castaneda MD [facility]-72776 Level 3 Est. Patient 15:06:39 CDT Marvel Charles [facility] CPT-68264 Level 4 Est. Patient 17:48:15 CDT Alina Castaneda MD [facility] CPT-22946 Level 3 Est. Patient 14:53:49 CDT Alina Castaneda MD [facility]-21045 Level 3 Est. Patient 09:35:16 CDT Alina Castaneda MD [facility]-03547 Level 3 Est. Patient 12:23:22 CDT Alina Castaneda MD [facility] CPT-93083 Level 3 Est. Patient 16:19:15 CDT Alina Castaneda MD [facility] CPT-32368 Level 3 Est. 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 Patient 14:12:56 MOUNTING INSPECTOR Alina Castaneda MD [facility] CPT-25608 Level 2 Est. Patient 15:34:57 MOUNTING INSPECTOR Alina Castaneda MD [facility] CPT-66818 Level 3 Est. Patient 12:17:04 MOUNTING INSPECTOR Alina Castaneda MD [facility]-51670 Level 3 Est. Patient 09:18:18 MOUNTING INSPECTOR Marvel Charles [facility] CPT-22215 Level 2 Est. Patient 21:50:24 CDT Alina Castaneda MD [facility]-89670 Level 3 Est. Patient 09:17:28 CDT Brooksjohn Charles [facility]-30287 Level 4 Est. Patient 18:54:02 CDT Alina Castaneda MD [facility]-26878 Level 3 Est. Patient 10:47:10 CDT Alina Castaneda MD [facility] [id number] Level 3 Est. Patient 09:22:20 CDT Marvel Araceli [facility]-01343 Level 3 Est. Patient 16:39:43 CDT Marvel Araceli [facility]-06130 Level 3 Est. Patient 16:05:16 CDT Alina Castaneda MD [facility]-16563 Level 3 Est. Patient 00:29:15 CDT Alina Castaneda MD [facility] [id number] Level 3 Est. Patient 10:49:22 MOUNTING INSPECTOR Brooksjohn Charles [facility]-04960 Level 3 Est. Patient 21:30:19 MOUNTING INSPECTOR Alina Castaneda MD [facility]-48401 Level 4 Est. Patient 17:04:11 MOUNTING INSPECTOR Brooksjohn Charles [facility]-20097 Level 3 Est. Patient 15:34:11 MOUNTING INSPECTOR Brookslashondanivia Araceli [facility]-63680 Level 2 Est. Patient 12:51:58 MOUNTING INSPECTOR Alina Castaneda MD [facility]-47901 Level 3 Est. Patient 13:20:01 MOUNTING INSPECTOR Alina Castaneda MD [facility]-11424 Level 3 Est. Patient 09:23:35 CDT Alina Castaneda MD PhD [facility] Procedures Code Procedure Name Date Entry Date Standard Description CPT-17567 HGBA1C - LAB USE ONLY 09:30:27 MOUNTING INSPECTOR CPT-69137 BMP - LAB USE ONLY 09:30:27 MOUNTING INSPECTOR CPT-72936 Venipuncture Draw Fee 09:30:26 MOUNTING INSPECTOR CPT-TCMM Transitional Care Mgmt-Moderate 10:25:31 CDT CPT-44028 Bladder Scan 14:34:53 CDT CPT-39851 Bladder Scan 14:39:01 MOUNTING INSPECTOR CPT-TCMM Transitional Care Mgmt-Moderate 10:30:19 MOUNTING INSPECTOR CPT-21741 Bladder Scan 12:36:44 CDT CPT-95459 Bladder Scan 21:54:06 CDT CPT-G0008 Administration of Influenza Virus Vaccine 13:05:26 CDT CPT-26541 Fluzone Quadrivalent Intramuscular Suspension 0.5 ML 13: 05:26 CDT CPT-98090 Administration single or combination vaccine inc oral 11 :49:51 CDT CPT-20423 Pneumovax 11:49:51 CDT CPT-41509 Ribs unilateral 2V 12:37:22 MOUNTING INSPECTOR CPT-28113 Chest 2V Frontal and Lat 17:15:26 CDT CPT-47815 Abx/Therapy Injection 18:54:02 CDT CPT-J0696 Rocephin 1000 mg (Ceftriaxone) 16:00:32 CDT CPT-88815 Chest 2V Frontal and Lat 15:26:45 CDT CPT-11169 Chest 2V Frontal and Lat 10:23:27 CDT CPT-93897 Venipuncture Draw Fee 10:11:00 CDT CPT-53500 Administration single or combination vaccine inc oral 11 :56:38 CDT CPT-33449 Influenza split virus > age 3 11:56:38 CDT CPT-38805 Venipuncture Draw Fee 08:49:54 MOUNTING INSPECTOR CPT-20329 EKG Trac and Interp 17:54:19 MOUNTING INSPECTOR
--- OUTSIDE RECORDS SUMMARY | 2018-07-02 15:23 | XMS REPORT | Clinical Summary ---
Author Author Admin, TERELL Organization [email or web address] Address Unknown Phone Unavailable Allergies, Adverse Reactions, [...] RIB PAIN, RIGHT SIDED 786.50 Resolved Alina aCstaneda MD PhD Unspecified chest pain SKIN LESION 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 Erazo RATOPRINTER Benign paroxysmal positional vertigo Vertigo, benign paroxysmal position 386.11 Inactive Mima Erazo RATOPRINTER Benign paroxysmal positional vertigo High-risk sexual behavior V69.2 Active Alina Castaneda MD PhD High-risk sexual behavior Erectile dysfunction 302.72 Active Alina Castaneda MD PhD Psychosexual dysfunction with inhibited sexual excitement Constipation 564.00 Active Alina Castaneda MD PhD Constipation, unspecified Skin lesion 709.9 Active Alina Castaneda MD PhD Unspecified disorder of skin and subcutaneous tissue Malaise and fatigue 780.79 Active Cherelle Speaks RATOPRINTER Other malaise and fatigue Diarrhea 787.91 Active Cherelle Speaks RATOPRINTER Diarrhea PHARYNGITIS 462 Active Cherelle Speaks RATOPRINTER Acute pharyngitis Colitis 558.9 Active Mima Erazo RATOPRINTER Other and unspecified noninfectious gastroenteritis and colitis [...] Patient Instruction EFFEXOR XR 37.5 MG ORAL [id number] Take one by mouth daily VENLAFAXINE HCL 48556493644 Active Mima Vadimum ALBAN Active TRAVATAN Z 0.004 % OPHTH SOLN 1 drop each eye daily TRAVOPROST 42042040653 Active Mima Yokum RATOPRINTER Active FLUVOXAMINE MALEATE 50 MG ORAL TABS 1 tab by mouth daily FLUVOXAMINE MALEATE 09961587016 No Longer Active Mima Vadimum ALBAN Active MORPHINE SULFATE ER 30 MG ORAL CR-TABS Take one capsule BID MORPHINE SULFATE 24559294094 Active Mima Yokum RATOPRINTER Active TRUEPLUS LANCETS 30G MISC 3x a day LANCETS 44329363267 Active Marvel Charles SUPERVISOR ALUMINUM FABRICATION Active TRUE METRIX METER W/DEVICE KIT Check blood sugars 3x/day BLOOD GLUCOSE MONITORING SUPPL 93655718471 Active Marvel Mackenzieglari SUPERVISOR ALUMINUM FABRICATION Active TRUE METRIX BLOOD GLUCOSE TEST INVITR STRP Check blood sugars 3x/day. GLUCOSE BLOOD 64256229056 Active Marvel Makcenzieglari SUPERVISOR ALUMINUM FABRICATION Active VITAMIN D 2000 UNIT ORAL CAPS Take one by mouth daily CHOLECALCIFEROL 42470630514 Active Mima Yokum RATOPRINTER Active LATUDA 60 MG ORAL TABS Take one by mouth daily LURASIDONE HCL 59564795680 No Longer Active Mima Yokum RATOPRINTER Active HUMALOG KWIKPEN 100 UNIT/ML SC SOPN sliding scale if needed INSULIN LISPRO (HUMAN) 15545410691 Active Mima Yokum RATOPRINTER Active TRAZODONE HCL 100 MG TABS 1 every night to prevent headaches TRAZODONE HCL 41485905364 Active Gabrielle Madl FIELD STAFF MANAGER Active LATUDA 60 MG ORAL TABS 1 tab daily LURASIDONE HCL 72288224158 Active Gabrielle Madl FIELD STAFF MANAGER Active CLONAZEPAM 1 MG TABS 1 pill by mouth three times daily CLONAZEPAM 32467144447 Active Gabrielle Madl FIELD STAFF MANAGER Active [facility] MILK OF MAGNESIA 400 MG/5ML ORAL SUSP 30ml by mouth bid prn MAGNESIUM HYDROXIDE 46822755190 Active Mason Loredo MD Active TYLENOL 8 HOUR 650 MG ORAL CR-TABS 1 tab QID prn ACETAMINOPHEN 90470077789 Active Mason Loredo MD Active MYLANTA GAS RELIEF MAXIMUM STR 125 MG ORAL CAPS 30cc every 4 hours prn 12/01 SIMETHICONE 40883171293 Active Mason Loredo MD Active IMODIUM A-D 2 MG ORAL TABS 1 tab QID as needed LOPERAMIDE HCL 35388594078 Active Mason Loredo MD Active TRAVATAN Z 0.004 % SOLN 1 gtt each eye daily TRAVOPROST 97176637355 No Longer Active Mason Loredo MD Active LISINOPRIL 20 MG TABS 1 BID LISINOPRIL 35563529491 No Longer Active Mason Loredo MD Active LEVEMIR FLEXTOUCH 100 UNIT/ML SC SOPN 60 units SQ each evening, for diabetes INSULIN DETEMIR 59290149988 Active Mima Erazo APRN Active ZOLPIDEM TARTRATE 10 MG TABS take at bedtime ZOLPIDEM TARTRATE 24419191857 No Longer Active Mason Loredo MD Active HYDROCODONE-ACETAMINOPHEN 5-325 MG TABS 2 tabs by mouth three times daily for pain HYDROCODONE-ACETAMINOPHEN 29214036469 No Longer Active Mason Loredo MD Active ZOFRAN 4 MG TABS 1 po q4hr PRN Nausea ONDANSETRON HCL 74768781799 No Longer Active Mason Loredo MD Active LOMOTIL 2.5-0.025 MG ORAL TABS take 1-2 tabs PO after each stool, no more than 8 in 24 hours DIPHENOXYLATE-ATROPINE 54489761525 No Longer Active Mason Loredo MD Active COLACE 100 MG CAPS 1 pill by mouth twice daily, for constipation DOCUSATE SODIUM 89685609311 No Longer Active Mima Erazo APRN Active FLONASE ALLERGY RELIEF 50 MCG/ACT NASAL SUSP One spray each nostril BID x 1 week then daily FLUTICASONE PROPIONATE 65923439865 Active Mima Erazo APRN Active BD PEN NEEDLE MINI U/F 31G X 5 MM MISC 4 a day INSULIN PEN NEEDLE 33792460062 Active Marvel MARROQUIN Active AMITIZA 24 MCG ORAL CAPS Take one capsule BID for constipation LUBIPROSTONE 14372342666 Active Mima Erazo APRN Active TRUEPLUS LANCETS 30G MISC 3 a day LANCETS 97886707485 Active Marvel MARROQUIN Active TOLTERODINE TARTRATE 2 MG TABS 1 pill twice daily, for bladder TOLTERODINE TARTRATE 84289962534 No Longer Active Vanessa Hickey MD Active AMITIZA 24 MCG ORAL CAPS Take one capsule BID for constipation. LUBIPROSTONE 08297597351 No Longer Active Vanessa Hickey MD Active FLUVOXAMINE MALEATE 100 MG ORAL TABS take one tab every AM et HS, and take 1/ 2 tab at noon FLUVOXAMINE MALEATE 00624510441 Active Grace Azam RMA Active METOPROLOL SUCCINATE 100 MG [id number] 1 by mouth daily for blood pressure METOPROLOL SUCCINATE 79067345713 No Longer Active Grace Azam RMA Active METFORMIN HCL ER 500 MG [id number]-XSL Take three tablets by mouth everyday METFORMIN HCL 05475984399 No Longer Active Grace Azam RMA Active LOVAZA 1 GM CAPS 4 daily (for triglycerides) OMEGA-3- ACID ETHYL ESTERS 91525871742 No Longer Active Grace Azam RMA Active TRAZODONE HCL 100 MG ORAL TABS 1 tab by mouth for sleep TRAZODONE HCL 79154823688 No Longer Active Grace Azam RMA Active NOVOFINE 32G X 6 MM MISC use one four times per day INSULIN PEN NEEDLE 31378542298 No Longer Active Grace Azam RMA Active BACTROBAN 2 % CREAM Apply to affected area BID for up to 10 days MUPIROCIN CALCIUM 24124470951 No Longer Active Grace Azam RMA Active KEFLEX 500 MG CAP 1 po BID x 7 days CEPHALEXIN 45366739357 No Longer Active Cherelle Avila APRN Active FLUVOXAMINE MALEATE 100 MG TABS Take one (1) tablet by mouth am, 1/2 at noon FLUVOXAMINE MALEATE 51840236107 No Longer Active Mimacecily Erazo RATOPRINTER Active CORICIDIN HBP CONGESTION/COUGH 10-200 MG ORAL CAPS Take as directed on box as needed for cold/flu symptoms DEXTROMETHORPHAN-GUAIFENESIN 34237226484 Active Cherelle Speaks RATOPRINTER Active OMEGA-3 300 MG ORAL CAPS 4 caps by mouth daily OMEGA-3 FATTY ACIDS 58159426700 Active Mima Yokum RATOPRINTER Active FLUVOXAMINE MALEATE 100 MG ORAL TABS Take 1/2 tab at noon FLUVOXAMINE MALEATE 85292971400 No Longer Active Cherelle Avila ALBAN Active [facility] LUBRICANT EYE DROPS 0.4-0.3 % OPHTH SOLN POLYETHYL GLYCOL-PROPYL GLYCOL 15300036934 Active Mima Erazo RATOPRINTER Active MIRALAX POWD 17g by mouth daily, for constipation POLYETHYLENE GLYCOL 3350 93387000002 Active Alina Castaneda MD PhD Active TRUETEST TEST STRP check blood sugars 3x/day GLUCOSE BLOOD 22134975035 Active Maliheh Ziglari SUPERVISOR ALUMINUM FABRICATION Active ACCU-CHEK ROSA UZMA Use device to check blood sugars BLOOD GLUCOSE MONITORING SUPPL 61138741183 No Longer Active Maliheh Ziglari SUPERVISOR ALUMINUM FABRICATION Active ACCU-CHEK ROSA INVITR STRP use strips with device to check blood sugars 3 times daily GLUCOSE BLOOD 66341275445 No Longer Active [facility] Ziglari SUPERVISOR ALUMINUM FABRICATION Active VERAPAMIL HCL ER 180 MG ORAL CR-TABS 1 pill by mouth twice daily, for migraine prevention VERAPAMIL HCL 21478070243 Active Mima Erazo APRN Active CYCLOBENZAPRINE HCL 10 MG TABS 1 tablet by mouth three times daily, scheduled CYCLOBENZAPRINE HCL 88273861602 No Longer Active Alina Castaneda MD PhD Active HUMALOG 100 UNIT/ML SOLN Take 20 units with breakfast, 10u with lunch and suppetr. INSULIN LISPRO (HUMAN) 40908842422 No Longer Active Alina Castaneda MD PhD Active TRUETEST TEST STRP check sugars 4x/day GLUCOSE BLOOD 92013317580 No Longer Active Alina Castaneda MD PhD Active MORPHINE SULFATE 30 MG TABS 1 pill by mouth twice daily, for pain MORPHINE SULFATE 66748864182 No Longer Active Mason Loredo MD Active ACYCLOVIR 400 MG ORAL TABS 1 pill three times daily x 5 days, for cold sore outbreak ACYCLOVIR 80495217894 No Longer Active Alina Castaneda MD PhD Active PENICILLIN V POTASSIUM 500 MG TABS 1 pill by mouth three times daily PENICILLIN V POTASSIUM 51616273829 No Longer Active Alina Castaneda MD PhD Active UROXATRAL 10 MG [id number]-QJM Take 1 tablet by mouth daily ALFUZOSIN HCL 96804938066 No Longer Active Alina Castaneda MD PhD Active THIOTHIXENE 5 MG CAPS by mouth twice a day THIOTHIXENE 32375442179 No Longer Active Alina Castaneda MD PhD Active ZYPREXA 7.5 MG TABS 1 at HS OLANZAPINE 25974193716 No Longer Active Alina Castaneda MD PhD Active BD INSULIN SYRINGE 28G X 1/2" 1 ML MISC 1 four times per day INSULIN SYRINGE-NEEDLE U-100 66520875375 Active Marvel Charles SUPERVISOR ALUMINUM FABRICATION Active DETROL LA 4 MG [id number] Take 1 tablet by mouth daily TOLTERODINE TARTRATE 74323742845 No Longer Active Alina Castaneda MD PhD Active TERESE CONTOUR TEST STRP monitor blood sugars 3x/day GLUCOSE BLOOD 98486081431 No Longer Active Alina Castaneda MD PhD Active EQL TRUETEST TEST STRP Test blood sugar TID GLUCOSE BLOOD 61256842970 No Longer Active Alina Castaneda MD PhD Active FLUTICASONE PROPIONATE 50 MCG/ACT SUSP 2 sprays each nostril qDay x 30 days FLUTICASONE PROPIONATE 44295192395 No Longer Active Alina Castaneda MD PhD Active IBUPROFEN 200 MG TABS 1 Q 6 hr. PRN IBUPROFEN 82078175720 No Longer Active Alina Castaneda MD PhD Active NIACIN ER 500 MG CR-TABS 4 qHS (for triglycerides) NIACIN 70371419684 No Longer Active Alina Castaneda MD PhD Active ALFUZOSIN HCL ER 10 MG [id number]-SLJ 1 tablet daily ALFUZOSIN HCL 96997642037 Active Mima Erazo RATOPRINTER Active SAPHRIS 5 MG SUBL by mouth twice a day ASENAPINE MALEATE 35676123323 No Longer Active Marvel Mackenzieglari SUPERVISOR ALUMINUM FABRICATION Active ACETAMINOPHEN 500 MG TABS 2 Q 6 hr. PRN ACETAMINOPHEN 08997815227 No Longer Active Maliheh Ziglari SUPERVISOR ALUMINUM FABRICATION Active ORPHENADRINE CITRATE ER 100 MG [id number] 1 every 12 hr. as needed ORPHENADRINE CITRATE 31634762678 No Longer Active Alina Castaneda MD PhD Active NIACIN CR 500 MG CR-TABS 2 qHS NIACIN 30715733068 No Longer Active Alina Castaneda MD PhD Active AMOXICILLIN 500 MG CAPS 2 po BID x 10 days AMOXICILLIN 24305265901 No Longer Active Alina Castaneda MD PhD Active HYDROCODONE-ACETAMINOPHEN 7.5-325 MG TABS 1 four times a day as needed for pain HYDROCODONE-ACETAMINOPHEN 70015221694 No Longer Active Alina Castaneda MD PhD Active DOXEPIN HCL 10 MG CAPS Take 1 tablet by mouth daily DOXEPIN HCL 91095008904 No Longer Active Salina Han [facility] Active NAVANE 10 MG CAPS 1/2 tablet twice a day THIOTHIXENE No Longer Active Salina Han [facility] Active CYCLOBENZAPRINE HCL 10 MG TABS 1/2 tablet by mouth every 8 hours as needed for muscle spasms CYCLOBENZAPRINE HCL 14791918432 No Longer Active Alina Castaneda MD PhD Active BACTROBAN 2 % CREAM apply to ear and nose twice daily MUPIROCIN CALCIUM 75881380080 No Longer Active Alina Castaneda MD PhD Active HYDROCODONE-ACETAMINOPHEN 5-325 MG TABS take one tablet by mouth every four hours as needed for pain HYDROCODONE-ACETAMINOPHEN 70927943084 No Longer Active Alina Castaneda MD PhD Active ZYPREXA 5 MG TABS take one tablet by mouth every evening OLANZAPINE 83226211013 No Longer Active Alina Castaneda MD PhD Active ALBUTEROL SULFATE 0.083 % NEBU SOLN one vial per nebulizer TID and PRN cough/ soa ALBUTEROL SULFATE 03479048812 No Longer Active Alina Castaneda MD PhD Active GUAIFENESIN 600 MG AB80X-HIT 1 tablet by mouth twice daily if needed for cough GUAIFENESIN 91949800067 No Longer Active Marvel MARROQUIN Active AZITHROMYCIN 500 MG SOLR 1 po q day AZITHROMYCIN 05553623945 No Longer Active Alina Castaneda MD PhD Active PROMETHAZINE-CODEINE 6.25-10 MG/5ML SYRP 1 tsp po q 6 hours prn cough PROMETHAZINE-CODEINE 65412597762 No Longer Active Alina Castaneda MD PhD Active CEFDINIR 300 MG CAPS by mouth twice a day CEFDINIR 35783100926 No Longer Active Alina Castaneda MD PhD Active METFORMIN HCL 500 MG QY12W-LMU Take 3 tablets by mouth everyday METFORMIN HCL 64648551216 No Longer Active Alina Castaneda MD PhD Active LEVEMIR 100 UNIT/ML SOLN 90 units SQ qHS INSULIN DETEMIR 90228616435 No Longer Active Marvel MARROQUIN Active TOPROL XL 100 MG [id number]-PUC 1 @ HS METOPROLOL SUCCINATE 88570930403 No Longer Active Marvel MARROQUIN Active ALLOPURINOL 300 MG TABS Take one by mouth daily ALLOPURINOL 46682899777 Active Mima Yoeloinaum RATOPRINTER Active ZYPREXA 10 MG TABS Take one by mouth daily OLANZAPINE 31831059725 No Longer Active Alina Castaneda MD PhD Active NOVOLOG 100 UNIT/ML SOLN 40 units with every meal INSULIN ASPART 69878640970 No Longer Active Alina Castaneda MD PhD Active VERAPAMIL HCL CR 120 MG TAB CR 1 qPM VERAPAMIL HCL 47848218974 No Longer Active Salina Han RMA Active ZYPREXA 15 MG TABS Take 1 tablet by mouth daily OLANZAPINE 13487923433 No Longer Active Marvel MENDOZAP Active ALBUTEROL SULFATE (2.5 MG/3ML) 0.083% NEBU 1 neb tid and prn cough ALBUTEROL SULFATE 92717908249 No Longer Active Alina Castaneda MD PhD Active LANTUS 100 UNIT/ML SOLN 60 units sq q hs INSULIN GLARGINE 55112289629 No Longer Active CRYSTAL Suarez Active ALBUTEROL SULFATE (2.5 MG/3ML) 0.083% NEBU 1 neb tid and prn cough ALBUTEROL SULFATE (2.5 MG/3ML) 0.083% NEBU 134476 ALBUTEROL SULFATE Inactive ZYPREXA 15 MG TABS Take 1 tablet by mouth daily ZYPREXA 15 MG TABS 720459 OLANZAPINE Inactive VERAPAMIL HCL CR 120 MG TAB CR 1 qPM VERAPAMIL HCL CR 120 MG TAB CR VERAPAMIL HCL Inactive ZYPREXA 10 MG TABS Take one by mouth daily ZYPREXA 10 MG TABS 626887 OLANZAPINE Inactive TOPROL XL 100 MG [id number] 1 @ HS TOPROL XL 100 MG [id number]-JTD METOPROLOL SUCCINATE Inactive LEVEMIR 100 UNIT/ML SOLN 90 units SQ qHS LEVEMIR 100 UNIT/ML SOLN INSULIN DETEMIR Inactive PROMETHAZINE-CODEINE 6.25-10 MG/5ML SYRP 1 tsp po q 6 hours prn cough PROMETHAZINE-CODEINE 6.25-10 MG/5ML SYRP 668955 PROMETHAZINE- CODEINE Inactive GUAIFENESIN 600 MG XZ85F-WTV 1 tablet by mouth twice daily if needed for cough GUAIFENESIN 600 MG [id number]-MSO GUAIFENESIN Inactive ALBUTEROL SULFATE 0.083 % NEBU SOLN one vial per nebulizer TID and PRN cough/ soa ALBUTEROL SULFATE 0.083 % NEBU SOLN 709156 ALBUTEROL SULFATE Inactive ZYPREXA 5 MG TABS take one tablet by mouth every evening ZYPREXA 5 MG TABS 915522 OLANZAPINE Inactive HYDROCODONE-ACETAMINOPHEN 5-325 MG TABS take one tablet by mouth every four hours as needed for pain HYDROCODONE-ACETAMINOPHEN 5-325 MG TABS 505657 HYDROCODONE-ACETAMINOPHEN Inactive BACTROBAN 2 % CREAM apply to ear and nose twice daily BACTROBAN 2 % CREAM 774786 MUPIROCIN CALCIUM Inactive CYCLOBENZAPRINE HCL 10 MG TABS 1/2 tablet by mouth every 8 hours as needed for muscle spasms CYCLOBENZAPRINE HCL 10 MG TABS 247983 CYCLOBENZAPRINE HCL Inactive NAVANE 10 MG CAPS 1/2 tablet twice a day NAVANE 10 MG CAPS THIOTHIXENE Inactive DOXEPIN HCL 10 MG CAPS Take 1 tablet by mouth daily DOXEPIN HCL 10 MG CAPS 0983055 DOXEPIN HCL Inactive HYDROCODONE-ACETAMINOPHEN 7.5-325 MG TABS 1 four times a day as needed for pain HYDROCODONE-ACETAMINOPHEN 7.5-325 MG TABS 983223 HYDROCODONE-ACETAMINOPHEN Inactive NIACIN CR 500 MG CR-TABS 2 qHS NIACIN CR 500 MG CR- TABS NIACIN Inactive ORPHENADRINE CITRATE ER 100 MG [id number] 1 every 12 hr. as needed ORPHENADRINE CITRATE ER 100 MG [id number]-OXZ ORPHENADRINE CITRATE Inactive ACETAMINOPHEN 500 MG TABS 2 Q 6 hr. PRN ACETAMINOPHEN 500 MG TABS 563746 ACETAMINOPHEN Inactive SAPHRIS 5 MG SUBL by mouth twice a day SAPHRIS 5 MG SUBL ASENAPINE MALEATE Inactive NIACIN ER 500 MG CR-TABS 4 qHS (for triglycerides) NIACIN ER 500 MG CR-TABS NIACIN Inactive IBUPROFEN 200 MG TABS 1 Q 6 hr. PRN IBUPROFEN 200 MG TABS 873189 IBUPROFEN Inactive FLUTICASONE PROPIONATE 50 MCG/ACT SUSP 2 sprays each nostril qDay x 30 days FLUTICASONE PROPIONATE 50 MCG/ACT SUSP 3670507 FLUTICASONE PROPIONATE Inactive EQL TRUETEST TEST STRP Test blood sugar TID EQL TRUETEST TEST STRP GLUCOSE BLOOD Inactive TERESE CONTOUR TEST STRP monitor blood sugars 3x/day TERESE CONTOUR TEST STRP GLUCOSE BLOOD Inactive DETROL LA 4 MG [id number] Take 1 tablet by mouth daily DETROL LA 4 MG [id number]-JDE TOLTERODINE TARTRATE Inactive ZYPREXA 7.5 MG TABS 1 at HS ZYPREXA 7.5 MG TABS 332314 OLANZAPINE Inactive THIOTHIXENE 5 MG CAPS by mouth twice a day THIOTHIXENE 5 MG CAPS 852498 THIOTHIXENE Inactive UROXATRAL 10 MG [id number] Take 1 tablet by mouth daily UROXATRAL 10 MG AN05W-NER ALFUZOSIN HCL Inactive ACYCLOVIR 400 MG ORAL TABS 1 pill three times daily x 5 days, for cold sore outbreak ACYCLOVIR 400 MG ORAL TABS 966641 ACYCLOVIR Inactive TRUETEST TEST STRP check sugars 4x/day TRUETEST TEST STRP GLUCOSE BLOOD Inactive HUMALOG 100 UNIT/ML SOLN Take 20 units with breakfast, 10u with lunch and suppetr. HUMALOG 100 UNIT/ML SOLN INSULIN LISPRO ( HUMAN) Inactive CYCLOBENZAPRINE HCL 10 MG TABS 1 tablet by mouth three times daily, scheduled CYCLOBENZAPRINE HCL 10 MG TABS 236257 CYCLOBENZAPRINE HCL Inactive ACCU-CHEK ROSA INVITR STRP use strips with device to check blood sugars 3 times daily ACCU-CHEK ROSA INVITR STRP GLUCOSE BLOOD Inactive ACCU-CHEK ROSA UZMA Use device to check blood sugars ACCU-CHEK ROSA UZMA BLOOD GLUCOSE MONITORING SUPPL Inactive FLUVOXAMINE MALEATE 100 MG ORAL TABS Take 1/2 tab at noon FLUVOXAMINE MALEATE 100 MG ORAL TABS 664869 FLUVOXAMINE MALEATE Inactive FLUVOXAMINE MALEATE 100 MG TABS Take one (1) tablet by mouth am, 1/2 at noon FLUVOXAMINE MALEATE 100 MG TABS 925649 FLUVOXAMINE MALEATE Inactive BACTROBAN 2 % CREAM Apply to affected area BID for up to 10 days BACTROBAN 2 % CREAM 976222 MUPIROCIN CALCIUM Inactive NOVOFINE 32G X 6 MM MISC use one four times per day NOVOFINE 32G X 6 MM MISC INSULIN PEN NEEDLE Inactive TRAZODONE HCL 100 MG ORAL TABS 1 tab by mouth for sleep TRAZODONE HCL 100 MG ORAL TABS 319624 TRAZODONE HCL Inactive LOVAZA 1 GM CAPS 4 daily (for triglycerides) LOVAZA 1 GM CAPS 726394 WMWBD-4-FITE ETHYL ESTERS Inactive METFORMIN HCL ER 500 MG DO97W-BLV Take three tablets by mouth everyday METFORMIN HCL ER 500 MG LI85T-LNY METFORMIN HCL Inactive METOPROLOL SUCCINATE 100 MG PH33H-CCI 1 by mouth daily for blood pressure METOPROLOL SUCCINATE 100 MG QA60N-VWK METOPROLOL SUCCINATE Inactive AMITIZA 24 MCG ORAL CAPS Take one capsule BID for constipation. AMITIZA 24 MCG ORAL CAPS LUBIPROSTONE Inactive TOLTERODINE TARTRATE 2 MG TABS 1 pill twice daily, for bladder TOLTERODINE TARTRATE 2 MG TABS 013593 TOLTERODINE TARTRATE Inactive COLACE 100 MG CAPS 1 pill by mouth twice daily, for constipation COLACE 100 MG CAPS 3986677 DOCUSATE SODIUM Inactive LOMOTIL 2.5-0.025 MG ORAL TABS take 1-2 tabs PO after each stool, no more than 8 in 24 hours LOMOTIL 2.5-0.025 MG ORAL TABS 0219733 DIPHENOXYLATE-ATROPINE Inactive ZOFRAN 4 MG TABS 1 po q4hr PRN Nausea ZOFRAN 4 MG TABS 000121 ONDANSETRON HCL Inactive HYDROCODONE-ACETAMINOPHEN 5-325 MG TABS 2 tabs by mouth three times daily for pain HYDROCODONE-ACETAMINOPHEN 5-325 MG TABS 630529 HYDROCODONE-ACETAMINOPHEN Inactive ZOLPIDEM TARTRATE 10 MG TABS take at bedtime ZOLPIDEM TARTRATE 10 MG TABS 201876 ZOLPIDEM TARTRATE Inactive LISINOPRIL 20 MG TABS 1 BID LISINOPRIL 20 MG TABS 240409 LISINOPRIL Inactive TRAVATAN Z 0.004 % SOLN 1 gtt each eye daily TRAVATAN Z 0.004 % SOLN TRAVOPROST Inactive LATUDA 60 MG ORAL TABS Take one by mouth daily LATUDA 60 MG ORAL TABS LURASIDONE HCL Inactive FLUVOXAMINE MALEATE 50 MG ORAL TABS 1 tab by mouth daily FLUVOXAMINE MALEATE 50 MG ORAL TABS 371774 FLUVOXAMINE MALEATE Inactive CEFDINIR 300 MG CAPS by mouth twice a day CEFDINIR 300 MG CAPS 140718 CEFDINIR Inactive AZITHROMYCIN 500 MG SOLR 1 po q day AZITHROMYCIN 500 MG SOLR 24451171106 AZITHROMYCIN Inactive AMOXICILLIN 500 MG CAPS 2 po BID x 10 days AMOXICILLIN 500 MG CAPS 155109 AMOXICILLIN Inactive PENICILLIN V POTASSIUM 500 MG TABS 1 pill by mouth three times daily PENICILLIN V POTASSIUM 500 MG TABS 800758 PENICILLIN V POTASSIUM Inactive KEFLEX 500 MG CAP 1 po BID x 7 days KEFLEX 500 MG CAP 796098 CEPHALEXIN Inactive Immunizations Vaccine Administration Date Value [...] Fluvirin, Fluarix, Agriflu(>=18 yo)) Fluzone (>3 yrs.) [[id number]] Influenza, seasonal, injectable pneumococcal immunization administered Pneumovax [...] E&M - 3141-9 220.5 [lb_av] Weight Measured Diagnostic Results Date Name Value Unit Range Description Lab Report: Basic Metabolic Panel, HGBA1C - Chemistry sodium, serum 140 mmol/L 531-091 0278/11/09 potassium, serum 4.0 mmol/L 3.5-5.2 chloride, serum [...] Acid - Chemistry cholesterol, serum 187 mg/dL 510-321 8892/06/14 triglyceride, serum, fasting 246 mg/dL 30-200 HDL [...] negative Office Visit: Weak stream - Chemistry RBC, [...] negative Encounters Code Encounter Date Provider Facility CPT-12893 Level 3 Est. Patient 09:12:14 SPINNING ROOM WORKER Mima Jeffliudmila [facility] CPT-58879 Level 3 Est. Patient 16:52:51 CDT Vanessa Hickey MD [facility]-42733 Level 3 Est. Patient 17:40:16 CDT Mima Erazo [facility]-98392 Level 3 Est. Patient 14:34:52 CDT Vanessa Hickey MD [facility]-69009 Level 3 Est. Patient 16:27:51 CDT Mima Erazo [facility]-83837 Level 3 Est. Patient 14:39:00 SPINNING ROOM WORKER Vanessa Hickey MD [facility]-50958 Level 2 Est. Patient 18:43:34 CDT Mima Erazo [facility] CPT-70180 Level 3 Est. Patient 16:22:09 CDT Cherelle Avila [facility] CPT-79842 Level 4 Est. Patient 17:55:14 CDT Mima Erazo [facility] CPT-50322 Level 2 Est. Patient 17:13:21 CDT Alina Castaneda MD [facility] CPT-23845 Level 3 Est. Patient 14:46:15 CDT Vanessa Hickey MD [facility]-38875 Level 3 Est. Patient 09:34:56 CDT Alina Castaneda MD [facility]-44496 Level 3 Est. Patient 21:40:19 CDT Mima Jeffeloinajerrell [facility] CPT-90197 Level 3 Est. Patient 09:26:40 CDT Marvel Charles [facility]-86236 Level 3 Est. Patient 12:36:43 CDT Vanessa Hickey MD [facility]-47332 Level 3 Est. Patient 12:57:49 CDT Vanessa Hickey MD [facility]-83482 Level 3 Est. Patient 00:28:25 CDT Alina Castaneda MD [facility]42155 Level 2 Est. Patient 12:52:14 CDT Alina Castaneda MD [facility]-56043 Level 3 Est. Patient 11:51:18 SPINNING ROOM WORKER Alina Castaneda MD [facility]-85338 Level 3 Est. Patient 10:09:22 SPINNING ROOM WORKER Alina Castaneda [facility]98407 Level 3 Est. Patient 14:36:26 SPINNING ROOM WORKER Marvel Charles [facility]-40709 Level 3 Est. Patient 13:34:47 SPINNING ROOM WORKER Alina Castaneda MD [facility]-31612 Level 3 Est. Patient 19:52:08 SPINNING ROOM WORKER Alina Castaneda MD [facility]-41568 Level 3 Est. Patient 10:01:51 SPINNING ROOM WORKER Marvel Charles [facility]-39083 Level 3 Est. Patient 21:54:06 CDT Vanessa Hickey MD [facility]-26595 Level 3 Est. Patient 08:54:46 CDT Alina Castaneda MD [facility]-74039 Level 3 Est. Patient 09:32:11 CDT Marvel Charles [facility]-83611 Level 3 Est. Patient 12:02:49 CDT Alina Castaneda MD [facility]93218 Level 3 Est. Patient 19:17:33 CDT Alina Castaneda MD [facility]87619 Level 3 Est. Patient 13:19:10 CDT Marvel Charles [facility]-56271 Level 3 Est. Patient 08:20:05 CDT Alina Castaneda MD [facility]-83601 Level 3 Est. Patient 15:17:18 CDT Alina Castaneda MD [facility] [place]-[address] Level 3 Est. Patient 14:25:36 [employer]INNING ROOM WORKER Marvel Charles [facility]-67364 Level 3 Est. Patient 10:09:15 SPINNING ROOM WORKER Marvel Charles [facility]-25753 Level 3 Est. Patient 21:28:43 CDT Alina Castaneda MD [facility] [place]-[address]01 Level 3 Est. Patient 15:20:11 CDT Marvel Charles [facility]-08537 Level 4 Est. Patient 19:08:12 CDT Alina Castaneda MD [facility] [place]-76109 Level 3 Est. Patient 15:06:39 CDT Marvel Charles [facility]-17929 Level 4 Est. Patient 17:48:15 CDT Alina Castaneda MD [facility] [place]-66494 Level 3 Est. Patient 14:53:49 CDT Alina Castaneda MD [facility] [place]-03462 Level 3 Est. Patient 09:35:16 CDT Alina Castaneda MD [facility] [place]-86405 Level 3 Est. Patient 12:23:22 CDT Alina Castaneda MD [facility] [place]-69193 Level 3 Est. Patient 16:19:15 CDT Alina Castaneda MD [facility] [place]-40359 Level 3 Est. Patient 21:39:56 SPINNING ROOM WORKER Alina Castaneda MD [facility] [place]-83022 Level 4 Est. Patient 14:12:56 SPINNING ROOM WORKER Alina Castaneda MD [facility] [place]-41512 Level 2 Est. Patient 15:34:57 SPINNING ROOM WORKER Alina Castaneda MD [facility] [place]-05672 Level 3 Est. Patient 12:17:04 SPINNING ROOM WORKER Alina Castaneda MD [facility]16837 Level 3 Est. Patient 09:18:18 SPINNING ROOM WORKER Marvel Charles [facility]-60347 Level 2 Est. Patient 21:50:24 CDT Alina Castaneda MD [facility] [place]-88856 Level 3 Est. Patient 09:17:28 CDT Marvel Charles [facility]-14104 Level 4 Est. Patient 18:54:02 CDT Alina Castaneda MD [facility] [place]-49017 Level 3 Est. Patient 10:47:10 CDT Alina Castaneda MD [facility] [place]-70724 Level 3 Est. Patient 09:22:20 CDT Marvel Charles [facility]-28857 Level 3 Est. Patient 16:39:43 CDT Marvel Charles [facility]-89266 Level 3 Est. Patient 16:05:16 CDT Alina Castaneda MD [facility] [place]-95599 Level 3 Est. Patient 00:29:15 CDT Alina Castaneda MD [facility]03107 Level 3 Est. Patient 10:49:22 SPINNING ROOM WORKER Marvel Charles [facility]-69051 Level 3 Est. Patient 21:30:19 SPINNING ROOM WORKER Alina Castaneda MD [facility] CPT-21390 Level 4 Est. Patient 17:04:11 SPINNING ROOM WORKER Marvel Charles [facility] CPT-01241 Level 3 Est. Patient 15:34:11 SPINNING ROOM WORKER Brook[place] Charles [facility] CPT-13888 Level 2 Est. Patient 12:51:58 SPINNING ROOM WORKER Alina Castaneda MD PhD [facility] CPT-48574 Level 3 Est. Patient 13:20:01 SPINNING ROOM WORKER Alina Castaneda MD [facility] CPT-54982 Level 3 Est. Patient 09:23:35 CDT Alina Castaneda MD PhD [facility] Procedures Code Procedure Name Date Entry Date Standard Description CPT-33203 HGBA1C - LAB USE ONLY 09:30:27 SPINNING ROOM WORKER CPT-85903 BMP - LAB USE ONLY 09:30:27 SPINNING ROOM WORKER CPT-57439 Venipuncture Draw Fee 09:30:26 SPINNING ROOM WORKER CPT-TCMM Transitional Care Mgmt-Moderate 10:25:31 CDT CPT-47801 Bladder Scan 14:34:53 CDT CPT-37677 Bladder Scan 14:39:01 SPINNING ROOM WORKER CPT-TCMM Transitional Care Mgmt-Moderate 10:30:19 SPINNING ROOM WORKER CPT-12258 Bladder Scan 12:36:44 CDT CPT-68563 Bladder Scan 21:54:06 CDT CPT-G0008 Administration of Influenza Virus Vaccine 13:05:26 CDT CPT-61718 Fluzone Quadrivalent Intramuscular Suspension 0.5 ML 13: 05:26 CDT CPT-48426 Administration single or combination vaccine inc oral 11 :49:51 CDT CPT-67794 Pneumovax 11:49:51 CDT CPT-28295 Ribs unilateral 2V 12:37:22 SPINNING ROOM WORKER CPT-74765 Chest 2V Frontal and Lat 17:15:26 CDT CPT-41121 Abx/Therapy Injection 18:54:02 CDT CPT-J0696 Rocephin 1000 mg (Ceftriaxone) 16:00:32 CDT CPT-12390 Chest 2V Frontal and Lat 15:26:45 CDT CPT-36481 Chest 2V Frontal and Lat 10:23:27 CDT CPT-56434 Venipuncture Draw Fee 10:11:00 CDT CPT-64325 Administration single or combination vaccine inc oral 11 :56:38 CDT CPT-88643 Influenza split virus > age 3 11:56:38 CDT CPT-78064 Venipuncture Draw Fee 08:49:54 SPINNING ROOM WORKER CPT-32069 EKG Trac and Interp 17:54:19 SPINNING ROOM WORKER
--- OUTSIDE RECORDS SUMMARY | 2018-07-02 15:25 | XMS REPORT | Clinical Summary ---
Author Author Admin, TERELL Organization [facility] [place] Address Unknown Phone Unavailable Allergies, Adverse Reactions, [...] Asthma, unspecified OBSESSIVE-COMPULSIVE DISORDER 300.3 Active Alina Castandea MD PhD Obsessive-compulsive disorders GLAUCOMA NOS 365.9 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 Erazo PHARMACY BENEFITS COORDINATOR Benign paroxysmal positional vertigo Vertigo, benign paroxysmal position 386.11 Inactive Mima Erazo PHARMACY BENEFITS COORDINATOR Benign paroxysmal positional vertigo High-risk sexual behavior V69.2 Active Alina Castaneda MD PhD High-risk sexual behavior Erectile dysfunction 302.72 Active Alina Castaneda MD PhD Psychosexual dysfunction with inhibited sexual excitement Constipation 564.00 Active Alina Castaneda MD PhD Constipation, unspecified Skin lesion 709.9 Active Alina Castaneda MD PhD Unspecified disorder of skin and subcutaneous tissue Malaise and fatigue 780.79 Active Cherelle Speaks PHARMACY BENEFITS COORDINATOR Other malaise and fatigue Diarrhea 787.91 Active Cherelle Speaks PHARMACY BENEFITS COORDINATOR Diarrhea PHARYNGITIS 462 Active Cherelle Speaks PHARMACY BENEFITS COORDINATOR Acute pharyngitis Colitis 558.9 Active Mima Erazo PHARMACY BENEFITS COORDINATOR Other and unspecified noninfectious gastroenteritis and [...] and floor of mouth, uncomplicated ICD-873.64 Inactive Alian Castaneda MD PhD Chest pain, atypical ICD-786.59 Inactive Alina Castaneda MD PhD Chest pain, atypical ICD-786.59 Inactive Alina Castaneda MD PhD Medication List Medication Instructions Start Date Stop Date Generic Name NDC Status Provider Patient Instruction VITAMIN D 2000 UNIT ORAL CAPS Take one by mouth daily CHOLECALCIFEROL 60333643717 Active Mima Yokum PHARMACY BENEFITS COORDINATOR Active LATUDA 60 MG ORAL TABS Take one by mouth daily LURASIDONE HCL 04104111478 No Longer Active Mima Yokum PHARMACY BENEFITS COORDINATOR Active HUMALOG KWIKPEN 100 UNIT/ML SC SOPN sliding scale if needed INSULIN LISPRO (HUMAN) 33234618088 Active Mima Yokum PHARMACY BENEFITS COORDINATOR Active MORPHINE SULFATE 30 MG ORAL TABS by mouth twice a day MORPHINE SULFATE 43325853494 Active Salina Han [facility] Active TRAZODONE HCL 100 MG TABS 1 every night to prevent headaches TRAZODONE HCL 65641640209 Active Gabrielle Madl FURNACE CLERK Active LATUDA 60 MG ORAL TABS 1 tab daily LURASIDONE HCL 94959875251 Active Gabrielle Madl FURNACE CLERK Active CLONAZEPAM 1 MG TABS 1 pill by mouth three times daily CLONAZEPAM 26124405804 Active Gabrielle Madl FURNACE CLERK Active [facility] MILK OF MAGNESIA 400 MG/5ML ORAL SUSP 30ml by mouth bid prn MAGNESIUM HYDROXIDE 21642910008 Active Mason Loredo MD Active TYLENOL 8 HOUR 650 MG ORAL CR-TABS 1 tab QID prn ACETAMINOPHEN 43977293879 Active Mason Loredo MD Active MYLANTA GAS RELIEF MAXIMUM STR 125 MG ORAL CAPS 30cc every 4 hours prn 12/01 SIMETHICONE 41856426183 Active Mason Loredo MD Active IMODIUM A-D 2 MG ORAL TABS 1 tab QID as needed LOPERAMIDE HCL 39247128512 Active Mason Loredo MD Active FLUVOXAMINE MALEATE 50 MG ORAL TABS 1 tab by mouth daily FLUVOXAMINE MALEATE 65276493811 Active Mason Loredo MD Active TRAVATAN Z 0.004 % SOLN 1 gtt each eye daily TRAVOPROST 65421102387 No Longer Active Mason oLredo MD Active LISINOPRIL 20 MG TABS 1 BID LISINOPRIL 70630844666 No Longer Active Mason Loredo MD Active LEVEMIR FLEXTOUCH 100 UNIT/ML SC SOPN 60 units SQ each evening, for diabetes INSULIN DETEMIR 84373268696 Active Desi Nicholson Active ZOLPIDEM TARTRATE 10 MG TABS take at bedtime ZOLPIDEM TARTRATE 75776591765 No Longer Active Mason Loredo MD Active HYDROCODONE-ACETAMINOPHEN 5-325 MG TABS 2 tabs by mouth three times daily for pain HYDROCODONE-ACETAMINOPHEN 33240405471 No Longer Active Mason Loredo MD Active ZOFRAN 4 MG TABS 1 po q4hr PRN Nausea ONDANSETRON HCL 18923819041 No Longer Active Mason Loredo MD Active LOMOTIL 2.5-0.025 MG ORAL TABS take 1-2 tabs PO after each stool, no more than 8 in 24 hours DIPHENOXYLATE-ATROPINE 66739371820 No Longer Active Mason Loredo MD Active COLACE 100 MG CAPS 1 pill by mouth twice daily, for constipation DOCUSATE SODIUM 12833276687 No Longer Active Mima Kacey [place] Active FLONASE ALLERGY RELIEF 50 MCG/ACT NASAL SUSP One spray each nostril BID x 1 week then daily FLUTICASONE PROPIONATE 06962514318 Active Mima Erazo APRN Active BD PEN NEEDLE MINI U/F 31G X 5 MM MISC 4 a day INSULIN PEN NEEDLE 44916691378 Active Marvel Bertrandari CUSTODIAL AIDE Active AMITIZA 24 MCG ORAL CAPS Take one capsule BID for constipation LUBIPROSTONE 69921859171 Active Mima Erazo PHARMACY BENEFITS COORDINATOR Active TRUEPLUS LANCETS 30G MISC 3 a day LANCETS 00309300826 Active Marvel 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 CUSTODIAL AIDE Active TOLTERODINE TARTRATE 2 MG TABS 1 pill twice daily, for bladder TOLTERODINE TARTRATE 20160327475 No Longer Active Vanessa Hickey MD Active AMITIZA 24 MCG ORAL CAPS Take one capsule BID for constipation. LUBIPROSTONE 63755893256 No Longer Active Vanessa Hickey MD Active FLUVOXAMINE MALEATE 100 MG ORAL TABS take one tab every AM et HS, and take 1/ 2 tab at noon FLUVOXAMINE MALEATE 45445562328 Active Grace Azam RMA Active METOPROLOL SUCCINATE 100 MG [id number] 1 by mouth daily for blood pressure METOPROLOL SUCCINATE 41480488174 No Longer Active Grace Azam RMA Active METFORMIN HCL ER 500 MG [id number]-RUT Take three tablets by mouth everyday METFORMIN HCL 59902239190 No Longer Active Grace Azam RMA Active LOVAZA 1 GM CAPS 4 daily (for triglycerides) OMEGA-3- ACID ETHYL ESTERS 14694346979 No Longer Active Grace Azam RMA Active TRAZODONE HCL 100 MG ORAL TABS 1 tab by mouth for sleep TRAZODONE HCL 26667590195 No Longer Active Grace Aazm RMA Active NOVOFINE 32G X 6 MM MISC use one four times per day INSULIN PEN NEEDLE 02774628110 No Longer Active Grace Azam RMA Active BACTROBAN 2 % CREAM Apply to affected area BID for up to 10 days MUPIROCIN CALCIUM 93550877663 No Longer Active Grace Nelsonb RMA Active KEFLEX 500 MG CAP 1 po BID x 7 days CEPHALEXIN 64136772943 No Longer Active Cherelle Speaks PHARMACY BENEFITS COORDINATOR Active FLUVOXAMINE MALEATE 100 MG TABS Take one (1) tablet by mouth am, 1/2 at noon FLUVOXAMINE MALEATE 32203004703 No Longer Active Mima Erazo PHARMACY BENEFITS COORDINATOR Active CORICIDIN HBP CONGESTION/COUGH 10-200 MG ORAL CAPS Take as directed on box as needed for cold/flu symptoms DEXTROMETHORPHAN-GUAIFENESIN 12933800361 Active Cherelle Speaks PHARMACY BENEFITS COORDINATOR Active OMEGA-3 300 MG ORAL CAPS 4 caps by mouth daily OMEGA-3 FATTY ACIDS 95775429772 Active Mima Erazo PHARMACY BENEFITS COORDINATOR Active FLUVOXAMINE MALEATE 100 MG ORAL TABS Take 1/2 tab at noon FLUVOXAMINE MALEATE 24937373789 No Longer Active Cherelle Austin PHARMACY BENEFITS COORDINATOR Active [facility] LUBRICANT EYE DROPS 0.4-0.3 % OPHTH SOLN POLYETHYL GLYCOL-PROPYL GLYCOL 62032137170 Active Mima Erazo PHARMACY BENEFITS COORDINATOR Active MIRALAX POWD 17g by mouth daily, for constipation POLYETHYLENE GLYCOL 3350 71592445377 Active Alina Castaneda MD PhD Active TRUETEST TEST STRP check blood sugars 3x/day GLUCOSE BLOOD 06373414905 Active Maliheh Ziglari CUSTODIAL AIDE Active ACCU-CHEK ROSA UZMA Use device to check blood sugars BLOOD GLUCOSE MONITORING SUPPL 50308024126 No Longer Active Maliheh Ziglari CUSTODIAL AIDE Active ACCU-CHEK ROSA INVITR STRP use strips with device to check blood sugars 3 times daily GLUCOSE BLOOD 52526532176 No Longer Active Maliheh Ziglari CUSTODIAL AIDE Active VERAPAMIL HCL ER 180 MG ORAL CR-TABS 1 pill by mouth twice daily, for migraine prevention VERAPAMIL HCL 19754195716 Active CRYSTAL Rodrigues Active CYCLOBENZAPRINE HCL 10 MG TABS 1 tablet by mouth three times daily, scheduled CYCLOBENZAPRINE HCL 27945574748 No Longer Active Alina Castaneda MD PhD Active HUMALOG 100 UNIT/ML SOLN Take 20 units with breakfast, 10u with lunch and suppetr. INSULIN LISPRO (HUMAN) 24583365589 No Longer Active Alina Castaneda MD PhD Active TRUETEST TEST STRP check sugars 4x/day GLUCOSE BLOOD 19294119910 No Longer Active Alina Castaneda MD PhD Active MORPHINE SULFATE 30 MG TABS 1 pill by mouth twice daily, for pain MORPHINE SULFATE 67372765061 No Longer Active aMson Loredo MD Active ACYCLOVIR 400 MG ORAL TABS 1 pill three times daily x 5 days, for cold sore outbreak ACYCLOVIR 36124826886 No Longer Active Alina Castaneda MD PhD Active PENICILLIN V POTASSIUM 500 MG TABS 1 pill by mouth three times daily PENICILLIN V POTASSIUM 20235397537 No Longer Active Alina Castaneda MD PhD Active UROXATRAL 10 MG [id number] Take 1 tablet by mouth daily ALFUZOSIN HCL 79372171772 No Longer Active Alina Castaneda MD PhD Active THIOTHIXENE 5 MG CAPS by mouth twice a day THIOTHIXENE 55064111671 No Longer Active Alina Castaneda MD PhD Active ZYPREXA 7.5 MG TABS 1 at HS OLANZAPINE 37199999005 No Longer Active Alina Castaneda MD PhD Active BD INSULIN SYRINGE 28G X 1/2" 1 ML MISC 1 four times per day INSULIN SYRINGE-NEEDLE U-100 37324147456 Active Marvel Mackenzieglestela CUSTODIAL AIDE Active DETROL LA 4 MG [id number]-IIQ Take 1 tablet by mouth daily TOLTERODINE TARTRATE 22176405594 No Longer Active Alina Castaneda MD PhD Active TERESE CONTOUR TEST STRP monitor blood sugars 3x/day GLUCOSE BLOOD 19825052551 No Longer Active Alina Castaneda MD PhD Active EQL TRUETEST TEST STRP Test blood sugar TID GLUCOSE BLOOD 33873324606 No Longer Active Alina Castaneda MD PhD Active FLUTICASONE PROPIONATE 50 MCG/ACT SUSP 2 sprays each nostril qDay x 30 days FLUTICASONE PROPIONATE 57679056257 No Longer Active Alina Castaneda MD PhD Active IBUPROFEN 200 MG TABS 1 Q 6 hr. PRN IBUPROFEN 80601501265 No Longer Active Alina Castaneda MD PhD Active NIACIN ER 500 MG CR-TABS 4 qHS (for triglycerides) NIACIN 14675925012 No Longer Active Alina Castaneda MD PhD Active ALFUZOSIN HCL ER 10 MG [id number] 1 tablet daily ALFUZOSIN HCL 46643629722 Active CRYSTAL Rodrigues Active SAPHRIS 5 MG SUBL by mouth twice a day ASENAPINE MALEATE 91818545597 No Longer Active Maljohn Ziglestela MENDOZAP Active ACETAMINOPHEN 500 MG TABS 2 Q 6 hr. PRN ACETAMINOPHEN 55888716795 No Longer Active Mallashondaeh 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 CUSTODIAL AIDE Active ORPHENADRINE CITRATE ER 100 MG VM61M-GRR 1 every 12 hr. as needed ORPHENADRINE CITRATE 86272749623 No Longer Active Alina Castaneda MD PhD Active NIACIN CR 500 MG CR-TABS 2 qHS NIACIN 00966291735 No Longer Active Alina Castaneda MD PhD Active AMOXICILLIN 500 MG CAPS 2 po BID x 10 days AMOXICILLIN 05528691964 No Longer Active Alina Castaneda MD PhD Active HYDROCODONE-ACETAMINOPHEN 7.5-325 MG TABS 1 four times a day as needed for pain HYDROCODONE-ACETAMINOPHEN 91859378926 No Longer Active Alina Castaneda MD PhD Active DOXEPIN HCL 10 MG CAPS Take 1 tablet by mouth daily DOXEPIN HCL 20566089538 No Longer Active Salina Han [facility] Active NAVANE 10 MG CAPS 1/2 tablet twice a day THIOTHIXENE No Longer Active Salina Han A Active CYCLOBENZAPRINE HCL 10 MG TABS 1/2 tablet by mouth every 8 hours as needed for muscle spasms CYCLOBENZAPRINE HCL 84159715942 No Longer Active Alina Castaneda MD PhD Active BACTROBAN 2 % CREAM apply to ear and nose twice daily MUPIROCIN CALCIUM 57612089578 No Longer Active Alina Castaneda MD PhD Active HYDROCODONE-ACETAMINOPHEN 5-325 MG TABS take one tablet by mouth every four hours as needed for pain HYDROCODONE-ACETAMINOPHEN 27839741608 No Longer Active Alina Castaneda MD PhD Active ZYPREXA 5 MG TABS take one tablet by mouth every evening OLANZAPINE 00857331232 No Longer Active Alina Castaneda MD PhD Active ALBUTEROL SULFATE 0.083 % NEBU SOLN one vial per nebulizer TID and PRN cough/ soa ALBUTEROL SULFATE 57943531756 No Longer Active Alina Castaneda MD PhD Active GUAIFENESIN 600 MG [id number]-ZNE 1 tablet by mouth twice daily if needed for cough GUAIFENESIN 35527507750 No Longer Active Marvel Charles [facility] Active AZITHROMYCIN 500 MG SOLR 1 po q day AZITHROMYCIN 12151334737 No Longer Active Alina Castaneda MD PhD Active PROMETHAZINE-CODEINE 6.25-10 MG/5ML SYRP 1 tsp po q 6 hours prn cough PROMETHAZINE-CODEINE 16509378316 No Longer Active Alina Castaneda MD PhD Active CEFDINIR 300 MG CAPS by mouth twice a day CEFDINIR 35759798063 No Longer Active Alina Castaneda MD PhD Active METFORMIN HCL 500 MG [id number]-PSD Take 3 tablets by mouth everyday METFORMIN HCL 67665136373 No Longer Active Alina Castaneda MD PhD Active LEVEMIR 100 UNIT/ML SOLN 90 units SQ qHS INSULIN DETEMIR 99444162506 No Longer Active Marvel MARROQUIN Active TOPROL XL 100 MG [id number]-DKL 1 @ HS METOPROLOL SUCCINATE 70648571873 No Longer Active Marvel MARROQUIN Active ALLOPURINOL 300 MG TABS Take one by mouth daily ALLOPURINOL 94153149135 Active Mimacecily Fierroum PHARMACY BENEFITS COORDINATOR Active ZYPREXA 10 MG TABS Take one by mouth daily OLANZAPINE 27750420667 No Longer Active Alina Castaneda MD PhD Active NOVOLOG 100 UNIT/ML SOLN 40 units with every meal INSULIN ASPART 97582488213 No Longer Active Alina Castaneda MD PhD Active VERAPAMIL HCL CR 120 MG TAB CR 1 qPM VERAPAMIL HCL 02144414022 No Longer Active Salina ROJAS Active ZYPREXA 15 MG TABS Take 1 tablet by mouth daily OLANZAPINE 03890401540 No Longer Active Marvel MARROQUIN Active ALBUTEROL SULFATE (2.5 MG/3ML) 0.083% NEBU 1 neb tid and prn cough ALBUTEROL SULFATE 01861327627 No Longer Active Alina Castaneda MD PhD Active LANTUS 100 UNIT/ML SOLN 60 units sq q hs INSULIN GLARGINE 92179189684 No Longer Active CRYSTAL Suarez Active ALBUTEROL SULFATE (2.5 MG/3ML) 0.083% NEBU 1 neb tid and prn cough ALBUTEROL SULFATE (2.5 MG/3ML) 0.083% NEBU 539463 ALBUTEROL SULFATE Inactive ZYPREXA 15 MG TABS Take 1 tablet by mouth daily ZYPREXA 15 MG TABS 246399 OLANZAPINE Inactive VERAPAMIL HCL CR 120 MG TAB CR 1 qPM VERAPAMIL HCL CR 120 MG TAB CR VERAPAMIL HCL Inactive ZYPREXA 10 MG TABS Take one by mouth daily ZYPREXA 10 MG TABS 508778 OLANZAPINE Inactive TOPROL XL 100 MG [id number] 1 @ HS TOPROL XL 100 MG [id number]-UVN METOPROLOL SUCCINATE Inactive LEVEMIR 100 UNIT/ML SOLN 90 units SQ qHS LEVEMIR 100 UNIT/ML SOLN INSULIN DETEMIR Inactive PROMETHAZINE-CODEINE 6.25-10 MG/5ML SYRP 1 tsp po q 6 hours prn cough PROMETHAZINE-CODEINE 6.25-10 MG/5ML SYRP 768213 PROMETHAZINE- CODEINE Inactive GUAIFENESIN 600 MG [id number] 1 tablet by mouth twice daily if needed for cough GUAIFENESIN 600 MG SV17K-DOS GUAIFENESIN Inactive ALBUTEROL SULFATE 0.083 % NEBU SOLN one vial per nebulizer TID and PRN cough/ soa ALBUTEROL SULFATE 0.083 % NEBU SOLN 646022 ALBUTEROL SULFATE Inactive ZYPREXA 5 MG TABS take one tablet by mouth every evening ZYPREXA 5 MG TABS 695275 OLANZAPINE Inactive HYDROCODONE-ACETAMINOPHEN 5-325 MG TABS take one tablet by mouth every four hours as needed for pain HYDROCODONE-ACETAMINOPHEN 5-325 MG TABS 596302 HYDROCODONE-ACETAMINOPHEN Inactive BACTROBAN 2 % CREAM apply to ear and nose twice daily BACTROBAN 2 % CREAM 200997 MUPIROCIN CALCIUM Inactive CYCLOBENZAPRINE HCL 10 MG TABS 1/2 tablet by mouth every 8 hours as needed for muscle spasms CYCLOBENZAPRINE HCL 10 MG TABS 110313 CYCLOBENZAPRINE HCL Inactive NAVANE 10 MG CAPS 1/2 tablet twice a day NAVANE 10 MG CAPS THIOTHIXENE Inactive DOXEPIN HCL 10 MG CAPS Take 1 tablet by mouth daily DOXEPIN HCL 10 MG CAPS 7563293 DOXEPIN HCL Inactive HYDROCODONE-ACETAMINOPHEN 7.5-325 MG TABS 1 four times a day as needed for pain HYDROCODONE-ACETAMINOPHEN 7.5-325 MG TABS 760034 HYDROCODONE-ACETAMINOPHEN Inactive NIACIN CR 500 MG CR-TABS 2 qHS NIACIN CR 500 MG CR- TABS NIACIN Inactive ORPHENADRINE CITRATE ER 100 MG [id number]-JUF 1 every 12 hr. as needed ORPHENADRINE CITRATE ER 100 MG [id number]-GTR ORPHENADRINE CITRATE Inactive ACETAMINOPHEN 500 MG TABS 2 Q 6 hr. PRN ACETAMINOPHEN 500 MG TABS 494938 ACETAMINOPHEN Inactive SAPHRIS 5 MG SUBL by mouth twice a day SAPHRIS 5 MG SUBL ASENAPINE MALEATE Inactive NIACIN ER 500 MG CR-TABS 4 qHS (for triglycerides) NIACIN ER 500 MG CR-TABS NIACIN Inactive IBUPROFEN 200 MG TABS 1 Q 6 hr. PRN IBUPROFEN 200 MG TABS 637366 IBUPROFEN Inactive FLUTICASONE PROPIONATE 50 MCG/ACT SUSP 2 sprays each nostril qDay x 30 days FLUTICASONE PROPIONATE 50 MCG/ACT SUSP 280821 FLUTICASONE PROPIONATE Inactive EQL TRUETEST TEST STRP Test blood sugar TID EQL TRUETEST TEST STRP GLUCOSE BLOOD Inactive TERESE CONTOUR TEST STRP monitor blood sugars 3x/day TERESE CONTOUR TEST STRP GLUCOSE BLOOD Inactive DETROL LA 4 MG [id number] Take 1 tablet by mouth daily DETROL LA 4 MG NQ95V-[id number] TOLTERODINE TARTRATE Inactive ZYPREXA 7.5 MG TABS 1 at HS ZYPREXA 7.5 MG TABS 016503 OLANZAPINE Inactive THIOTHIXENE 5 MG CAPS by mouth twice a day THIOTHIXENE 5 MG CAPS 377004 THIOTHIXENE Inactive UROXATRAL 10 MG ZQ92S-EJG Take 1 tablet by mouth daily UROXATRAL 10 MG NX30S-ATF ALFUZOSIN HCL Inactive ACYCLOVIR 400 MG ORAL TABS 1 pill three times daily x 5 days, for cold sore outbreak ACYCLOVIR 400 MG ORAL TABS 011646 ACYCLOVIR Inactive TRUETEST TEST STRP check sugars 4x/day TRUETEST TEST STRP GLUCOSE BLOOD Inactive HUMALOG 100 UNIT/ML SOLN Take 20 units with breakfast, 10u with lunch and suppetr. HUMALOG 100 UNIT/ML SOLN INSULIN LISPRO ( HUMAN) Inactive CYCLOBENZAPRINE HCL 10 MG TABS 1 tablet by mouth three times daily, scheduled CYCLOBENZAPRINE HCL 10 MG TABS 137981 CYCLOBENZAPRINE HCL Inactive ACCU-CHEK ROSA INVITR STRP use strips with device to check blood sugars 3 times daily ACCU-CHEK ROSA INVITR STRP GLUCOSE BLOOD Inactive ACCU-CHEK ROSA UZMA Use device to check blood sugars ACCU-CHEK ROSA UZMA BLOOD GLUCOSE MONITORING SUPPL Inactive FLUVOXAMINE MALEATE 100 MG ORAL TABS Take 1/2 tab at noon FLUVOXAMINE MALEATE 100 MG ORAL TABS 840821 FLUVOXAMINE MALEATE Inactive FLUVOXAMINE MALEATE 100 MG TABS Take one (1) tablet by mouth am, 1/2 at noon FLUVOXAMINE MALEATE 100 MG TABS 642470 FLUVOXAMINE MALEATE Inactive BACTROBAN 2 % CREAM Apply to affected area BID for up to 10 days BACTROBAN 2 % CREAM 625483 MUPIROCIN CALCIUM Inactive NOVOFINE 32G X 6 MM MISC use one four times per day NOVOFINE 32G X 6 MM MISC INSULIN PEN NEEDLE Inactive TRAZODONE HCL 100 MG ORAL TABS 1 tab by mouth for sleep TRAZODONE HCL 100 MG ORAL TABS 155745 TRAZODONE HCL Inactive LOVAZA 1 GM CAPS 4 daily (for triglycerides) LOVAZA 1 GM CAPS 378375 EUIHW-9-KNVR ETHYL ESTERS Inactive METFORMIN HCL ER 500 MG MM33J-SOW Take three tablets by mouth everyday METFORMIN HCL ER 500 MG HK30H-RNR METFORMIN HCL Inactive METOPROLOL SUCCINATE 100 MG BY50M-RXZ 1 by mouth daily for blood pressure METOPROLOL SUCCINATE 100 MG TK20R-BZJ METOPROLOL SUCCINATE Inactive AMITIZA 24 MCG ORAL CAPS Take one capsule BID for constipation. AMITIZA 24 MCG ORAL CAPS LUBIPROSTONE Inactive TOLTERODINE TARTRATE 2 MG TABS 1 pill twice daily, for bladder TOLTERODINE TARTRATE 2 MG TABS 018197 TOLTERODINE TARTRATE Inactive COLACE 100 MG CAPS 1 pill by mouth twice daily, for constipation COLACE 100 MG CAPS 4555821 DOCUSATE SODIUM Inactive LOMOTIL 2.5-0.025 MG ORAL TABS take 1-2 tabs PO after each stool, no more than 8 in 24 hours LOMOTIL 2.5-0.025 MG ORAL TABS 4393460 DIPHENOXYLATE-ATROPINE Inactive ZOFRAN 4 MG TABS 1 po q4hr PRN Nausea ZOFRAN 4 MG TABS 131774 ONDANSETRON HCL Inactive HYDROCODONE-ACETAMINOPHEN 5-325 MG TABS 2 tabs by mouth three times daily for pain HYDROCODONE-ACETAMINOPHEN 5-325 MG TABS 349837 HYDROCODONE-ACETAMINOPHEN Inactive ZOLPIDEM TARTRATE 10 MG TABS take at bedtime ZOLPIDEM TARTRATE 10 MG TABS 751678 ZOLPIDEM TARTRATE Inactive LISINOPRIL 20 MG TABS 1 BID LISINOPRIL 20 MG TABS 704744 LISINOPRIL Inactive TRAVATAN Z 0.004 % SOLN 1 gtt each eye daily TRAVATAN Z 0.004 % SOLN TRAVOPROST Inactive LATUDA 60 MG ORAL TABS Take one by mouth daily LATUDA 60 MG ORAL TABS LURASIDONE HCL Inactive CEFDINIR 300 MG CAPS by mouth twice a day CEFDINIR 300 MG CAPS 264075 CEFDINIR Inactive AZITHROMYCIN 500 MG SOLR 1 po q day AZITHROMYCIN 500 MG SOLR 36967157810 AZITHROMYCIN Inactive AMOXICILLIN 500 MG CAPS 2 po BID x 10 days AMOXICILLIN 500 MG CAPS 884293 AMOXICILLIN Inactive PENICILLIN V POTASSIUM 500 MG TABS 1 pill by mouth three times daily PENICILLIN V POTASSIUM 500 MG TABS 439939 PENICILLIN V POTASSIUM Inactive KEFLEX 500 MG CAP 1 po BID x 7 days KEFLEX 500 MG CAP 397877 CEPHALEXIN Inactive Immunizations Vaccine Administration Date Value [...] Fluvirin, Fluarix, Agriflu(>=18 yo)) Fluzone (>3 yrs.) [[id number]] Influenza, seasonal, injectable pneumococcal immunization administered Pneumovax [...] Panel - Chemistry sodium, serum 137 mmol/L 241-968 0173/10/12 potassium, serum 4.8 mmol/L 3.5-5.2 chloride, serum 102 mmol/L 98-107 carbon dioxide, venous blood 27.6 mmol/L 21.0-32.0 blood glucose 168 mg/dL 65-110 calcium, serum 9.0 mg/dL 8.5-10.1 urea nitrogen, blood 15 mg/dL 7-18 creatinine, serum 1.04 mg/dL 0.55-1.30 sodium, serum 138 mmol/L 567-939 9831/11/11 potassium, serum 4.7 mmol/L 3.5-5.2 chloride, serum [...] % 11.6-14.8 platelet count 240 10^3/MM^3 10*3/mm3 327-976 4160/11/11 leukocyte count, blood 9.6 10^3/MM^3 10*3/mm3 4.6-10.2 [...] Acid - Chemistry cholesterol, serum 187 mg/dL 841-694 2504/06/14 triglyceride, serum, fasting 246 mg/dL 30-200 HDL [...] negative Encounters Code Encounter Date Provider Facility CPT-63108 Level 3 Est. Patient 17:40:16 CDT Mima Erazo [facility] [place] CPT-40562 Level 3 Est. Patient 14:34:52 CDT Vanessa Hickey MD [facility] CPT-01100 Level 3 Est. Patient 16:27:51 CDT Mima Erazo [facility] CPT-41794 Level 3 Est. Patient 14:39:00 BOX ORDER PERSON Vanessa Hickey MD [facility] CPT-00090 Level 2 Est. Patient 18:43:34 CDT Mima Erazo [facility] CPT-85752 Level 3 Est. Patient 16:22:09 CDT Cherelle Avila [facility] CPT-17604 Level 4 Est. Patient 17:55:14 CDT Mima Erazo [facility] CPT-15649 Level 2 Est. Patient 17:13:21 CDT Alina Castaneda MD [facility]-06702 Level 3 Est. Patient 14:46:15 CDT Vanessa Hickey MD [facility]-48523 Level 3 Est. Patient 09:34:56 CDT Alina Castaneda MD [facility]49135 Level 3 Est. Patient 21:40:19 CDT Mima Erazo [facility]-92295 Level 3 Est. Patient 09:26:40 CDT Marvel Charles [facility]-30133 Level 3 Est. Patient 12:36:43 CDT Vanessa Hickey MD [facility]73077 Level 3 Est. Patient 12:57:49 CDT Vanessa Hickey MD [facility]31208 Level 3 Est. Patient 00:28:25 CDT Alina Castaneda MD [facility]59530 Level 2 Est. Patient 12:52:14 CDT Alina Castaneda MD [facility]98153 Level 3 Est. Patient 11:51:18 BOX ORDER PERSON Alina Castaneda MD [facility]-16133 Level 3 Est. Patient 10:09:22 BOX ORDER PERSON Alina Castaneda MD [facility]59731 Level 3 Est. Patient 14:36:26 BOX ORDER PERSON Marvel Charles [facility]78177 Level 3 Est. Patient 13:34:47 BOX ORDER PERSON Alina Castaneda MD [facility]68667 Level 3 Est. Patient 19:52:08 BOX ORDER PERSON Alina Castaneda MD [facility]61781 Level 3 Est. Patient 10:01:51 BOX ORDER PERSON Marvel Charles [facility]-89606 Level 3 Est. Patient 21:54:06 CDT Vanessa Hickey MD [facility]-85145 Level 3 Est. Patient 08:54:46 CDT Alina Castaneda MD [facility]-58996 Level 3 Est. Patient 09:32:11 CDT Marvel Araceli [facility]-86771 Level 3 Est. Patient 12:02:49 CDT Alina Castaneda MD [facility]49038 Level 3 Est. Patient 19:17:33 CDT Alina Castaneda MD [facility]78657 Level 3 Est. Patient 13:19:[facility]-18976 Level 3 Est. Patient 08:20:05 CDT Alina Castaneda MD [facility]-58525 Level 3 Est. Patient 15:17:18 CDT Alina Castaneda MD [facility]34223 Level 3 Est. Patient 14:25:36 [facility]OX [facility] P[facility] Level [facility] Est. Patient 10:09:15 BOX ORDER PERSON [place] [facility] [facility]136 Level 3 Est. Patient 21:28:43 CDT Alina Castaneda MD [facility] [place] Level 3 Est. Patient 15:20:11 CDT [place] [facility]-48204 Level 4 Est. Patient 19:08:12 CDT Alina Castaneda MD [facility] [place] Level 3 Est. Patient 15:06:39 CDT [facility] Araceli [facility]-70060 Level 4 Est. Patient 17:48:15 CDT Alina Castaneda MD [facility]-53585 Level 3 Est. Patient 14:53:49 CDT Alina Castaneda MD [facility]-69561 Level 3 Est. Patient 09:35:16 CDT Alina Castaneda MD [facility]-04675 Level 3 Est. Patient 12:23:22 CDT Alina Castaneda MD [facility]-61618 Level 3 Est. Patient 16:19:15 CDT Alina Castaneda MD [facility]-91686 Level 3 Est. Patient 21:39:56 BOX ORDER PERSON Alina Castaneda MD [facility]-24758 Level 4 Est. Patient 14:12:56 BOX ORDER PERSON Alina Castaneda MD [facility]-40968 Level 2 Est. Patient 15:34:57 BOX ORDER PERSON Alina Castaneda MD [facility]-12524 Level 3 Est. Patient 12:17:04 BOX ORDER PERSON Alina Castaneda MD [facility]-52112 Level 3 Est. Patient 09:18:18 BOX ORDER PERSON Marvel Charles [facility]-66649 Level 2 Est. Patient 21:50:24 CDT Alina Castaneda MD [facility]-67417 Level 3 Est. Patient 09:17:28 CDT Marvel Charles [facility]-81234 Level 4 Est. Patient 18:54:02 CDT Alina Castaneda MD [facility] [place] Level 3 Est. Patient 10:47:10 CDT Alina Castaneda MD [facility]-15551 Level 3 Est. Patient 09:22:20 CDT Marvel Charles [facility] CPT-87813 Level 3 Est. Patient 16:39:43 CDT [facility]78981 Level 3 Est. Patient 16:05:16 CDT Alina Castaneda MD [facility] CPT-57777 Level 3 Est. Patient 00:29:15 CDT Alina Castaneda MD [facility] CPT-84658 Level 3 Est. Patient 10:49:22 BOX ORDER PERSON Marvel [facility] CPT-19143 Level 3 Est. Patient 21:30:19 BOX ORDER PERSON Alina Castaneda MD [facility] CPT-51749 Level 4 Est. Patient 17:04:11 BOX ORDER PERSON [facility] CPT-92265 Level 3 Est. Patient 15:34:11 [facility]72151 Level 2 Est. Patient 12:51:58 BOX ORDER PERSON Alina Castaneda MD [facility] CPT-59084 Level 3 Est. Patient 13:20:01 BOX ORDER PERSON Alina Castaneda MD [facility] CPT-17515 Level 3 Est. Patient 09:23:35 CDT Alina Castaneda MD [facility] Procedures Code Procedure Name Date Entry Date Standard Description CPT-TCMM Transitional Care Mgmt-Moderate 10:25:31 CDT CPT-22543 Bladder Scan 14:34:53 CDT CPT-98470 Bladder Scan 14:39:01 BOX ORDER PERSON CPT-TCMM Transitional Care Mgmt-Moderate 10:30:19 BOX ORDER PERSON CPT-38629 Bladder Scan 12:36:44 CDT CPT-02575 Bladder Scan 21:54:06 CDT CPT-G0008 Administration of Influenza Virus Vaccine 13:05:26 CDT CPT-92170 Fluzone Quadrivalent Intramuscular Suspension 0.5 ML 13: 05:26 CDT CPT-95237 Administration single or combination vaccine inc oral 11 :49:51 CDT CPT-32567 Pneumovax 11:49:51 CDT CPT-02417 Ribs unilateral 2V 12:37:22 BOX ORDER PERSON CPT-21878 Chest 2V Frontal and Lat 17:15:26 CDT CPT-41519 Abx/Therapy Injection 18:54:02 CDT CPT-J0696 Rocephin 1000 mg (Ceftriaxone) 16:00:32 CDT CPT-31631 Chest 2V Frontal and Lat 15:26:45 CDT CPT-39482 Chest 2V Frontal and Lat 10:23:27 CDT CPT-88703 Venipuncture Draw Fee 10:11:00 CDT CPT-67239 Administration single or combination vaccine inc oral 11 :56:38 CDT CPT-30872 Influenza split virus > age 3 11:56:38 CDT CPT-59066 Venipuncture Draw Fee 08:49:54 BOX ORDER PERSON CPT-90748 EKG Trac and Interp 17:54:19 BOX ORDER PERSON
--- OUTSIDE RECORDS SUMMARY | 2018-07-02 15:26 | XMS REPORT | Clinical Summary ---
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 Benign paroxysmal positional vertigo Vertigo, benign paroxysmal position 386.11 Inactive Mima Kacey REYESN Benign paroxysmal positional vertigo WOUND, OPEN, NOSE [...] 10u lunch and supper INSULIN LISPRO (HUMAN) 35204019792 Active Marvel MARROQUIN Active LATUDA 120 MG ORAL TABS 1 pill by mouth nightly LURASIDONE HCL 95997701624 Active Alina Castaneda MD PhD Active COLACE 100 MG CAPS 1 pill by mouth twice daily, for constipation DOCUSATE SODIUM 02841620556 Active Alina Castaneda MD PhD Active TRUETEST TEST STRP check blood sugars 3x/day GLUCOSE BLOOD 75636507924 Active Marvel Mackenzieglari HOT KNIFE CUTTER Active ACCU-CHEK ROSA UZMA Use device to check blood sugars BLOOD GLUCOSE MONITORING SUPPL 19788488463 No Longer Active Marvel Mackenzieglestela MENDOZAP Active ACCU-CHEK ROSA INVITR STRP use strips with device to check blood sugars 3 times daily GLUCOSE BLOOD 82657436067 No Longer Active Marvel MARROQUIN Active VERAPAMIL HCL ER 180 MG ORAL CR-TABS 1 pill by mouth twice daily, for migraine prevention VERAPAMIL HCL 03137657597 Active Alina Castaneda MD PhD Active CYCLOBENZAPRINE HCL 10 MG TABS 1 tablet by mouth three times daily, scheduled CYCLOBENZAPRINE HCL 69488137821 No Longer Active Alina Castaneda MD PhD Active HUMALOG 100 UNIT/ML SOLN Take 20 units with breakfast, 10u with lunch and suppetr. INSULIN LISPRO (HUMAN) 11908241066 No Longer Active Alina Castaneda MD PhD Active TRUETEST TEST STRP check sugars 4x/day GLUCOSE BLOOD 80738786421 No Longer Active Alina Castaneda MD PhD Active MORPHINE SULFATE 30 MG TABS 1 pill by mouth twice daily, for pain MORPHINE SULFATE 54333235656 Active Mason Loredo MD Active ACYCLOVIR 400 MG ORAL TABS 1 pill three times daily x 5 days, for cold sore outbreak ACYCLOVIR 24529318324 No Longer Active Alina Castaneda MD PhD Active PENICILLIN V POTASSIUM 500 MG TABS 1 pill by mouth three times daily PENICILLIN V POTASSIUM 09769908428 No Longer Active Alina Castaneda MD PhD Active UROXATRAL 10 MG [id number]-YJV Take 1 tablet by mouth daily ALFUZOSIN HCL 25892408650 No Longer Active Alina Castaneda MD PhD Active THIOTHIXENE 5 MG CAPS by mouth twice a day THIOTHIXENE 30267324527 No Longer Active Alina Castaneda MD PhD Active ZYPREXA 7.5 MG TABS 1 at HS OLANZAPINE 10386738274 No Longer Active Alina Castaneda MD PhD Active LEVEMIR 100 UNIT/ML SOLN Take 70 u at 7-8pm INSULIN DETEMIR 61106169681 Active Maliheh Ziglari HOT KNIFE CUTTER Active BD INSULIN SYRINGE 28G X 1/2" 1 ML MISC 1 four times per day INSULIN SYRINGE-NEEDLE U-100 36069072393 Active Maleh Ziglari HOT KNIFE CUTTER Active TOLTERODINE TARTRATE 2 MG TABS 1 pill twice daily, for bladder TOLTERODINE TARTRATE 45677052232 Active Alina Castaneda MD PhD Active DETROL LA 4 MG [id number] Take 1 tablet by mouth daily TOLTERODINE TARTRATE 97840644896 No Longer Active Alina Castaneda MD PhD Active HYDROCODONE-ACETAMINOPHEN 5-325 MG TABS 2 tabs by mouth three times daily as needed for pain HYDROCODONE-ACETAMINOPHEN 53297730347 Active Alina Castaneda MD PhD Active TERESE CONTOUR TEST STRP monitor blood sugars 3x/day GLUCOSE BLOOD 45964412747 No Longer Active Alina Castaneda MD PhD Active EQL TRUETEST TEST STRP Test blood sugar TID GLUCOSE BLOOD 98951050694 No Longer Active Alina Castaneda MD PhD Active FLUTICASONE PROPIONATE 50 MCG/ACT SUSP 2 sprays each nostril qDay x 30 days FLUTICASONE PROPIONATE 53396247597 No Longer Active Alina Castaneda MD PhD Active IBUPROFEN 200 MG TABS 1 Q 6 hr. PRN IBUPROFEN 46941047675 No Longer Active Alina Castaneda MD PhD Active NIACIN ER 500 MG CR-TABS 4 qHS (for triglycerides) NIACIN 17051530660 No Longer Active Alina Castaneda MD PhD Active ALFUZOSIN HCL ER 10 MG [id number] 1 tablet daily ALFUZOSIN HCL 86233561694 Active Vanessa Hickey MD Active CLONAZEPAM 1 MG TABS 1 pill by mouth three times daily CLONAZEPAM 90856030600 Active Alina Castaneda MD PhD Active LOVAZA 1 GM CAPS 4 daily (for triglycerides) [id number]-4-[id number] ETHYL ESTERS 02525438789 Active Mao Rodriguez MD Active SAPHRIS 5 MG SUBL by mouth twice a day ASENAPINE MALEATE 17903608467 No Longer Active Marvel MARROQUIN Active ACETAMINOPHEN 500 MG TABS 2 Q 6 hr. PRN ACETAMINOPHEN 88459001592 No Longer Active Marvel Gurdeepglestela HOT KNIFE CUTTER Active ORPHENADRINE CITRATE ER 100 MG [id number] 1 every 12 hr. as needed ORPHENADRINE CITRATE 11041448738 No Longer Active Alina Castaneda MD PhD Active NIACIN CR 500 MG CR-TABS 2 qHS NIACIN 70202932472 No Longer Active Alina Castaneda MD PhD Active AMOXICILLIN 500 MG CAPS 2 po BID x 10 days AMOXICILLIN 55642406698 No Longer Active Alina Castaneda MD PhD Active HYDROCODONE-ACETAMINOPHEN 7.5-325 MG TABS 1 four times a day as needed for pain HYDROCODONE-ACETAMINOPHEN 87965964996 No Longer Active Alina Castaneda MD PhD Active METFORMIN HCL ER 500 MG ZS16S-HOO Take three tablets by mouth everyday METFORMIN HCL 21758072814 Active Brookslashondanivia Araceli MENDOZAP Active DOXEPIN HCL 10 MG CAPS Take 1 tablet by mouth daily DOXEPIN HCL 56519175839 No Longer Active Salina Han [facility] Active NAVANE 10 MG CAPS 1/2 tablet twice a day THIOTHIXENE No Longer Active Salina Han [facility] Active CYCLOBENZAPRINE HCL 10 MG TABS 1/2 tablet by mouth every 8 hours as needed for muscle spasms CYCLOBENZAPRINE HCL 69808676373 No Longer Active Alina Castaneda MD PhD Active BACTROBAN 2 % CREAM apply to ear and nose twice daily MUPIROCIN CALCIUM 86694307236 No Longer Active Alina Castaneda MD PhD Active HYDROCODONE-ACETAMINOPHEN 5-325 MG TABS take one tablet by mouth every four hours as needed for pain HYDROCODONE-ACETAMINOPHEN 74036247764 No Longer Active Alina Castaneda MD PhD Active ZOLPIDEM TARTRATE 10 MG TABS take at bedtime ZOLPIDEM TARTRATE 95857062060 Active Alina Castaneda MD PhD Active ZYPREXA 5 MG TABS take one tablet by mouth every evening OLANZAPINE 60485516216 No Longer Active Alina Castaneda MD PhD Active ALBUTEROL SULFATE 0.083 % NEBU SOLN one vial per nebulizer TID and PRN cough/ soa ALBUTEROL SULFATE 68147917113 No Longer Active Alina Castaneda MD PhD Active GUAIFENESIN 600 MG LQ73A-SZN 1 tablet by mouth twice daily if needed for cough GUAIFENESIN 15081490834 No Longer Active Marvel MARROQUIN Active AZITHROMYCIN 500 MG SOLR 1 po q day AZITHROMYCIN 49902419499 No Longer Active Alina Castaneda MD PhD Active METOPROLOL SUCCINATE 100 MG HR26D-LCG 1 by mouth daily for blood pressure METOPROLOL SUCCINATE 98083961425 Active Alina Castaneda MD PhD Active PROMETHAZINE-CODEINE 6.25-10 MG/5ML SYRP 1 tsp po q 6 hours prn cough PROMETHAZINE-CODEINE 55372676866 No Longer Active Alina Castaneda MD PhD Active CEFDINIR 300 MG CAPS by mouth twice a day CEFDINIR 72572448443 No Longer Active Alina Castaneda MD PhD Active METFORMIN HCL 500 MG OQ68Y-HPQ Take 3 tablets by mouth everyday METFORMIN HCL 71344595447 No Longer Active Alina Castaneda MD PhD Active LEVEMIR 100 UNIT/ML SOLN 90 units SQ qHS INSULIN DETEMIR 82330188399 No Longer Active Marvel MARROQUIN Active TOPROL XL 100 MG RI90B-YOV 1 @ HS METOPROLOL SUCCINATE 45188946573 No Longer Active Marvel MARROQUIN Active ALLOPURINOL 300 MG TABS Take one by mouth daily ALLOPURINOL 95318251957 Active Alina Castaneda MD PhD Active ZYPREXA 10 MG TABS Take one by mouth daily OLANZAPINE 72140212764 No Longer Active Alina Castaneda MD PhD Active NOVOLOG 100 UNIT/ML SOLN 40 units with every meal INSULIN ASPART 44744779296 No Longer Active Alina Castaneda MD PhD Active VERAPAMIL HCL CR 120 MG TAB CR 1 qPM VERAPAMIL HCL 14729378017 No Longer Active Salina Han RMA Active ZYPREXA 15 MG TABS Take 1 tablet by mouth daily OLANZAPINE 41313774482 No Longer Active Marvel Araceli HOT KNIFE CUTTER Active LISINOPRIL 20 MG TABS 1 BID LISINOPRIL 43699161633 Active Alina Castaneda MD PhD Active ALBUTEROL SULFATE (2.5 MG/3ML) 0.083% NEBU 1 neb tid and prn cough ALBUTEROL SULFATE 42734353176 No Longer Active Alina Castaneda MD PhD Active FLUVOXAMINE MALEATE 100 MG TABS Take one (1) tablet by mouth am, 1/2 at noon, 1 pm FLUVOXAMINE MALEATE 52249985115 Active Alina Castaneda MD PhD Active TRAVATAN Z 0.004 % SOLN 1 gtt each eye daily TRAVOPROST 76375995006 Active CRYSTAL Suarez Active LANTUS 100 UNIT/ML SOLN 60 units sq q hs INSULIN GLARGINE 39154904094 No Longer Active CRYSTAL Suarez Active ALBUTEROL SULFATE (2.5 MG/3ML) 0.083% NEBU 1 neb tid and prn cough ALBUTEROL SULFATE (2.5 MG/3ML) 0.083% NEBU 331311 ALBUTEROL SULFATE Inactive ZYPREXA 15 MG TABS Take 1 tablet by mouth daily ZYPREXA 15 MG TABS 363716 OLANZAPINE Inactive VERAPAMIL HCL CR 120 MG TAB CR 1 qPM VERAPAMIL HCL CR 120 MG TAB CR VERAPAMIL HCL Inactive ZYPREXA 10 MG TABS Take one by mouth daily ZYPREXA 10 MG TABS 310357 OLANZAPINE Inactive TOPROL XL 100 MG [id number] 1 @ HS TOPROL XL 100 MG JG73B-ZOD METOPROLOL SUCCINATE Inactive LEVEMIR 100 UNIT/ML SOLN 90 units SQ qHS LEVEMIR 100 UNIT/ML SOLN INSULIN DETEMIR Inactive PROMETHAZINE-CODEINE 6.25-10 MG/5ML SYRP 1 tsp po q 6 hours prn cough PROMETHAZINE-CODEINE 6.25-10 MG/5ML SYRP 266981 PROMETHAZINE- CODEINE Inactive GUAIFENESIN 600 MG [id number]-JEZ 1 tablet by mouth twice daily if needed for cough GUAIFENESIN 600 MG [id number]-BVF GUAIFENESIN Inactive ALBUTEROL SULFATE 0.083 % NEBU SOLN one vial per nebulizer TID and PRN cough/ soa ALBUTEROL SULFATE 0.083 % NEBU SOLN 914820 ALBUTEROL SULFATE Inactive ZYPREXA 5 MG TABS take one tablet by mouth every evening ZYPREXA 5 MG TABS 562583 OLANZAPINE Inactive HYDROCODONE-ACETAMINOPHEN 5-325 MG TABS take one tablet by mouth every four hours as needed for pain HYDROCODONE-ACETAMINOPHEN 5-325 MG TABS 409149 HYDROCODONE-ACETAMINOPHEN Inactive BACTROBAN 2 % CREAM apply to ear and nose twice daily BACTROBAN 2 % CREAM 605254 MUPIROCIN CALCIUM Inactive CYCLOBENZAPRINE HCL 10 MG TABS 1/2 tablet by mouth every 8 hours as needed for muscle spasms CYCLOBENZAPRINE HCL 10 MG TABS 110948 CYCLOBENZAPRINE HCL Inactive NAVANE 10 MG CAPS 1/2 tablet twice a day NAVANE 10 MG CAPS THIOTHIXENE Inactive DOXEPIN HCL 10 MG CAPS Take 1 tablet by mouth daily DOXEPIN HCL 10 MG CAPS 4249060 DOXEPIN HCL Inactive HYDROCODONE-ACETAMINOPHEN 7.5-325 MG TABS 1 four times a day as needed for pain HYDROCODONE-ACETAMINOPHEN 7.5-325 MG TABS 071119 HYDROCODONE-ACETAMINOPHEN Inactive NIACIN CR 500 MG CR-TABS 2 qHS NIACIN CR 500 MG CR- TABS NIACIN Inactive ORPHENADRINE CITRATE ER 100 MG [id number] 1 every 12 hr. as needed ORPHENADRINE CITRATE ER 100 MG [id number]-GTX ORPHENADRINE CITRATE Inactive ACETAMINOPHEN 500 MG TABS 2 Q 6 hr. PRN ACETAMINOPHEN 500 MG TABS 079497 ACETAMINOPHEN Inactive SAPHRIS 5 MG SUBL by mouth twice a day SAPHRIS 5 MG SUBL ASENAPINE MALEATE Inactive NIACIN ER 500 MG CR-TABS 4 qHS (for triglycerides) NIACIN ER 500 MG CR-TABS NIACIN Inactive IBUPROFEN 200 MG TABS 1 Q 6 hr. PRN IBUPROFEN 200 MG TABS 766960 IBUPROFEN Inactive FLUTICASONE PROPIONATE 50 MCG/ACT SUSP 2 sprays each nostril qDay x 30 days FLUTICASONE PROPIONATE 50 MCG/ACT SUSP 781662 FLUTICASONE PROPIONATE Inactive EQL TRUETEST TEST STRP Test blood sugar TID EQL TRUETEST TEST STRP GLUCOSE BLOOD Inactive TERESE CONTOUR TEST STRP monitor blood sugars 3x/day TERESE CONTOUR TEST STRP GLUCOSE BLOOD Inactive DETROL LA 4 MG [id number]-QAP Take 1 tablet by mouth daily DETROL LA 4 MG [id number]-RDQ TOLTERODINE TARTRATE Inactive ZYPREXA 7.5 MG TABS 1 at HS ZYPREXA 7.5 MG TABS 601539 OLANZAPINE Inactive THIOTHIXENE 5 MG CAPS by mouth twice a day THIOTHIXENE 5 MG CAPS 450789 THIOTHIXENE Inactive UROXATRAL 10 MG [id number]-ROE Take 1 tablet by mouth daily UROXATRAL 10 MG [id number]-XZL ALFUZOSIN HCL Inactive ACYCLOVIR 400 MG ORAL TABS 1 pill three times daily x 5 days, for cold sore outbreak ACYCLOVIR 400 MG ORAL TABS 369900 ACYCLOVIR Inactive TRUETEST TEST STRP check sugars 4x/day TRUETEST TEST STRP GLUCOSE BLOOD Inactive HUMALOG 100 UNIT/ML SOLN Take 20 units with breakfast, 10u with lunch and suppetr. HUMALOG 100 UNIT/ML SOLN INSULIN LISPRO ( HUMAN) Inactive CYCLOBENZAPRINE HCL 10 MG TABS 1 tablet by mouth three times daily, scheduled CYCLOBENZAPRINE HCL 10 MG TABS 166537 CYCLOBENZAPRINE HCL Inactive ACCU-CHEK ROAS INVITR STRP use strips with device to check blood sugars 3 times daily ACCU-CHEK ROSA INVITR STRP GLUCOSE BLOOD Inactive ACCU-CHEK ROSA UZMA Use device to check blood sugars ACCU-CHEK ROSA UZMA BLOOD GLUCOSE MONITORING SUPPL Inactive CEFDINIR 300 MG CAPS by mouth twice a day CEFDINIR 300 MG CAPS 495268 CEFDINIR Inactive AZITHROMYCIN 500 MG SOLR 1 po q day AZITHROMYCIN 500 MG SOLR 762517 AZITHROMYCIN Inactive AMOXICILLIN 500 MG CAPS 2 po BID x 10 days AMOXICILLIN 500 MG CAPS 377580 AMOXICILLIN Inactive PENICILLIN V POTASSIUM 500 MG TABS 1 pill by mouth three times daily PENICILLIN V POTASSIUM 500 MG TABS 646001 PENICILLIN V POTASSIUM Inactive Immunizations Vaccine Administration [...] Fluvirin, Fluarix, Agriflu(>=18 yo)) Fluzone (>3 yrs.) [SEA750] Influenza, seasonal, injectable pneumococcal immunization administered Pneumovax [...] pressure, diastolic - 8462-4 60 mm[Hg] BP garica blood pressure, systolic - 8480-6 110 mm[Hg] [...] HGBA1C - Chemistry sodium, serum 130 mmol/L 090-789 2235/06/09 potassium, serum 4.0 mmol/L 3.5-5.2 chloride, serum 92 mmol/L 98-107 carbon dioxide, venous blood 22.1 mmol/L 21.0-32.0 blood glucose 60 mg/dL 65-110 calcium, serum 9.5 mg/dL 8.5-10.1 urea nitrogen, blood 14 mg/dL 7-18 creatinine, serum 1.30 mg/dL 0.60-1.30 hemoglobin A1C, blood, as % of total hemoglobin 6.0 % 4.3-6.0 sodium, serum 131 mmol/L 757-897 6203/12/30 potassium, serum 5.0 mmol/L 3.5-5.2 chloride, serum 95 mmol/L 98-107 carbon dioxide, venous blood 26.7 mmol/L 21.0-32.0 blood glucose 112 mg/dL 65-110 calcium, serum 9.2 mg/dL 8.5-10.1 urea nitrogen, blood 12 mg/dL 7-18 creatinine, serum 1.10 mg/dL 0.60-1.30 hemoglobin A1C, blood, as % of total hemoglobin 5.8 % 4.3-6.0 Lab Report: Basic Metabolic Panel, HGBA1C, MICROALBUMIN - Chemistry sodium, serum 137 mmol/L 244-077 5750/05/19 potassium, serum 5.2 mmol/L 3.5-5.2 chloride, serum [...] Panel - Chemistry sodium, serum 127 mmol/L 931-666 1844/10/27 potassium, serum 4.1 mmol/L 3.5-5.2 chloride, serum [...] total hemoglobin 6.3 % 4.3-6.0 Office Visit: 6 mo f/u uroxatrol - [...] mg/dL Encounters Code Encounter Date Provider Facility CPT-44111 Level 3 Est. [facility] 21:40:19 [facility] Est. Patient 09:26:40 CDT Marvel MARROQUIN [facility] CPT-77117 Level 3 Est. Patient 12:36:43 CDT Vanessa Hickey MD [facility] CPT-70106 Level 3 Est. Patient 12:57:49 CDT Vanessa Hickey MD [facility] CPT-86383 Level 3 Est. Patient 00:28:25 CDT Alina Castaneda MD PhD [facility] CPT-42891 Level 2 Est. Patient 12:52:14 CDT Alina Castaneda MD [facility]-76269 Level 3 Est. Patient 11:51:18 EMPLOYEE'S REPRESENTATIVE Alina Castaneda MD [facility]-31170 Level 3 Est. Patient 10:09:22 EMPLOYEE'S REPRESENTATIVE Alina Castaneda MD [facility]-82765 Level 3 Est. Patient 14:36:26 EMPLOYEE'S REPRESENTATIVE Marvel Charles [facility]-28858 Level 3 Est. Patient 13:34:47 EMPLOYEE'S REPRESENTATIVE Alina Castaneda MD [facility]-76530 Level 3 Est. Patient 19:52:08 EMPLOYEE'S REPRESENTATIVE Alina Castaneda MD [facility]-91394 Level 3 Est. Patient 10:01:51 EMPLOYEE'S REPRESENTATIVE Marvel [facility]-80937 Level 3 Est. Patient 21:54:06 CDT Vanessa Hickey MD [facility]-80788 Level 3 Est. Patient 08:54:46 CDT Alina Castaneda MD [facility]-94144 Level 3 Est. Patient 09:32:11 CDT Marvel [facility]-81115 Level 3 Est. Patient 12:02:49 CDT Alina Castaneda MD [facility]-94884 Level 3 Est. Patient 19:17:33 CDT Alina Castaneda MD [facility]-63500 Level 3 Est. Patient 13:19:10 CDT Marvel [facility]-89942 Level 3 Est. Patient 08:20:05 CDT Alina Castaneda MD [facility]-35223 Level 3 Est. Patient 15:17:18 CDT Alina Castaneda MD [facility]-00855 Level 3 Est. Patient 14:25:36 EMPLOYEE'S REPRESENTATIVE Marvel [facility]-89092 Level 3 Est. Patient 10:09:15 EMPLOYEE'S REPRESENTATIVE Marvel [facility]-33967 Level 3 Est. Patient 21:28:43 CDT Alina Castaneda MD [facility]-51740 Level 3 Est. Patient 15:20:11 [facility]-62627 Level 4 Est. Patient 19:08:12 CDT Alina Castaneda MD [facility]-38223 Level 3 Est. Patient 15:06:39 [facility]-23079 Level 4 Est. Patient 17:48:15 CDT Alina Castaneda MD [facility]-82932 Level 3 Est. Patient 14:53:49 CDT Alina Castaneda MD [facility]-03271 Level 3 Est. Patient 09:35:16 CDT Alina Castaneda MD [facility]-36969 Level 3 Est. Patient 12:23:22 CDT Alina Castaneda MD [facility]-77284 Level 3 Est. Patient 16:19:15 CDT Alina Castaneda MD [facility]-46660 Level 3 Est. Patient 21:39:56 EMPLOYEE'S REPRESENTATIVE Alina Castaneda MD [facility]72759 Level 4 Est. Patient 14:12:56 EMPLOYEE'S REPRESENTATIVE Alina Castaneda MD [facility]-17547 Level 2 Est. Patient 15:34:57 EMPLOYEE'S REPRESENTATIVE Alina Castaneda MD [facility]-10227 Level 3 Est. Patient 12:17:04 EMPLOYEE'S REPRESENTATIVE Alina Castaneda MD [facility]-33430 Level 3 Est. Patient 09:18:18 EMPLOYEE'S REPRESENTATIVE Marvel [facility]-57139 Level 2 Est. Patient 21:50:24 CDT Alina Castaneda MD [facility]42595 Level 3 Est. Patient 09:17:28 CDT Marvel [facility]-35839 Level 4 Est. Patient 18:54:02 CDT Alina Castaneda MD [facility]90821 Level 3 Est. Patient 10:47:10 CDT Alina Castaneda MD [facility]-64033 Level 3 Est. Patient 09:22:20 CDT Marvel [facility]-04044 Level 3 Est. Patient 16:39:43 CDT Marvel [facility]-66241 Level 3 Est. Patient 16:05:16 CDT Alina Castaneda MD [facility]-61780 Level 3 Est. Patient 00:29:15 CDT lAina Castaneda MD [facility]08874 Level 3 Est. Patient 10:49:22 EMPLOYEE'S REPRESENTATIVE Marvel Charles [facility]-33779 Level 3 Est. Patient 21:30:19 EMPLOYEE'S REPRESENTATIVE Alina Castaneda MD [facility]62339 Level 4 Est. Patient 17:04:11 EMPLOYEE'S REPRESENTATIVE Marvel Charles [facility]-36664 Level 3 Est. Patient 15:34:11 EMPLOYEE'S REPRESENTATIVE [facility] Level 2 Est. Patient 12:51:58 EMPLOYEE'S REPRESENTATIVE Alina Castaneda MD PhD [facility] CPT-59399 Level 3 Est. Patient 13:20:01 EMPLOYEE'S REPRESENTATIVE Alina Castaneda MD PhD [facility] CPT-95273 Level 3 Est. Patient 09:23:35 CDT Alina Castaneda MD PhD [facility] Procedures Code Procedure Name Date Entry Date Standard Description CPT-27793 Bladder Scan 12:36:44 CDT CPT-36539 Bladder Scan 21:54:06 CDT CPT-G0008 Administration of Influenza Virus Vaccine 13:05:26 CDT CPT-13382 Fluzone Quadrivalent Intramuscular Suspension 0.5 ML 13: 05:26 CDT CPT-76290 Administration single or combination vaccine inc oral 11 :49:51 CDT CPT-15209 Pneumovax 11:49:51 CDT CPT-22464 Ribs unilateral 2V 12:37:22 EMPLOYEE'S REPRESENTATIVE CPT-83192 Chest 2V Frontal and Lat 17:15:26 CDT CPT-33220 Abx/Therapy Injection 18:54:02 CDT CPT-J0696 Rocephin 1000 mg (Ceftriaxone) 16:00:32 CDT CPT-55335 Chest 2V Frontal and Lat 15:26:45 CDT CPT-41347 Chest 2V Frontal and Lat 10:23:27 CDT CPT-85365 Venipuncture Draw Fee 10:11:00 CDT CPT-09274 Administration single or combination vaccine inc oral 11 :56:38 CDT CPT-69970 Influenza split virus > age 3 11:56:38 CDT CPT-39864 Venipuncture Draw Fee 08:49:54 EMPLOYEE'S REPRESENTATIVE CPT-56326 EKG Trac and Interp 17:54:19 EMPLOYEE'S REPRESENTATIVE
--- OUTSIDE RECORDS SUMMARY | 2018-07-02 15:28 | XMS REPORT | Clinical Summary ---
Author Author Admin, TERELL Organization [facility] Address Unknown Phone Unavailable Allergies, 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 Erazo ENROLLMENT COUNSELOR Benign paroxysmal positional vertigo Vertigo, benign paroxysmal position 386.11 Inactive Mima Erazo ENROLLMENT COUNSELOR Benign paroxysmal positional vertigo High-risk sexual behavior V69.2 Active Alina Castaneda MD PhD High-risk sexual behavior Erectile dysfunction 302.72 Active Alina Castaneda MD PhD Psychosexual dysfunction with inhibited sexual excitement Constipation 564.00 Active Alina Castaneda MD PhD Constipation, unspecified Skin lesion 709.9 Active Alina Castaneda MD PhD Unspecified disorder of skin and subcutaneous tissue Malaise and fatigue 780.79 Active Cherelle Speaks ENROLLMENT COUNSELOR Other malaise and fatigue Diarrhea 787.91 Active Cherelle Speaks ENROLLMENT COUNSELOR Diarrhea PHARYNGITIS 462 Active Cherelle Speaks ENROLLMENT COUNSELOR Acute pharyngitis Colitis 558.9 Active Mima Erazo ENROLLMENT COUNSELOR Other and unspecified noninfectious gastroenteritis and colitis WOUND, OPEN, NOSE ICD-873.20 Inactive Alina Castaneda MD PhD DIABETES, TYPE 2 ICD-250.00 Inactive Alina Castaneda MD PhD HYPERTENSION ICD-401.9 Inactive Alina Castaneda MD PhD URI ICD-465.9 Inactive Alina Castaneda MD PhD CHEST PAIN ICD-786.50 Inactive Alina Castaneda MD PhD FH STROKE ICD-V17.1 Inactive Marvel Charles GARMENT PATTERNMAKER FATIGUE ICD-780.79 Inactive Alina Castaneda MD PhD [...] MD PhD BRONCHITIS, ACUTE ICD-466.0 Inactive Alina Castaenda MD PhD PNEUMONIA, ORGANISM UNSPECIFIED ICD-486 Inactive [...] mouth twice daily, for constipation DOCUSATE SODIUM 81814708406 No Longer Active Mmia Erazo APRN Active FLONASE ALLERGY RELIEF 50 MCG/ACT NASAL SUSP One spray each nostril BID x 1 week then daily FLUTICASONE PROPIONATE 16117819945 Active Mimacecily Erazo APRN Active BD PEN NEEDLE MINI U/F 31G X 5 MM MISC 4 a day INSULIN PEN NEEDLE 85405017162 Active Mallashondaeh Ziglari GARMENT PATTERNMAKER Active AMITIZA 24 MCG ORAL CAPS Take one capsule BID for constipation LUBIPROSTONE 96975775768 Active Mimacecily Erazo APRN Active LEVEMIR FLEXTOUCH 100 UNIT/ML SC SOPN 75 units SQ each evening, for diabetes INSULIN DETEMIR 12116681513 Active Mima Erazo APRN Active TRUEPLUS LANCETS 30G MISC 3 a day LANCETS 05577507871 Active Mallashondaeh Ziglari GARMENT PATTERNMAKER Active TOLTERODINE TARTRATE 2 MG TABS 1 pill twice daily, for bladder TOLTERODINE TARTRATE 84155794859 No Longer Active Vanessa Hickey MD Active AMITIZA 24 MCG ORAL CAPS Take one capsule BID for constipation. LUBIPROSTONE 62333576795 No Longer Active Vanessa Hickey MD Active LOMOTIL 2.5-0.025 MG ORAL TABS take 1-2 tabs PO after each stool, no more than 8 in 24 hours DIPHENOXYLATE-ATROPINE 82121262688 Active Grace Nascimento RMA Active FLUVOXAMINE MALEATE 100 MG ORAL TABS take one tab every AM et HS, and take 1/ 2 tab at noon FLUVOXAMINE MALEATE 96155540913 Active Gracekailee Nascimento RMA Active METOPROLOL SUCCINATE 100 MG [id number] 1 by mouth daily for blood pressure METOPROLOL SUCCINATE 92611340322 No Longer Active Grace Nascimento RMA Active METFORMIN HCL ER 500 MG [id number] Take three tablets by mouth everyday METFORMIN HCL 98750106688 No Longer Active Grace Nascimneto RMA Active LOVAZA 1 GM CAPS 4 daily (for triglycerides) OMEGA-3- ACID ETHYL ESTERS 10175749362 No Longer Active Grace Nascimento RMA Active TRAZODONE HCL 100 MG ORAL TABS 1 tab by mouth for sleep TRAZODONE HCL 12331326786 No Longer Active Grace Nascimento RMA Active NOVOFINE 32G X 6 MM MISC use one four times per day INSULIN PEN NEEDLE 74737461315 No Longer Active Grace Nascimento RMA Active BACTROBAN 2 % CREAM Apply to affected area BID for up to 10 days MUPIROCIN CALCIUM 09706416917 No Longer Active Grace Nascimento RMA Active ZOFRAN 4 MG TABS 1 po q4hr PRN Nausea ONDANSETRON HCL 15531923502 Active Salina Han RMA Active KEFLEX 500 MG CAP 1 po BID x 7 days CEPHALEXIN 82004459303 No Longer Active Cherelle Avila APRN Active FLUVOXAMINE MALEATE 100 MG TABS Take one (1) tablet by mouth am, 1/2 at noon FLUVOXAMINE MALEATE 93868395272 No Longer Active Mima Erazo ENROLLMENT COUNSELOR Active CORICIDIN HBP CONGESTION/COUGH 10-200 MG ORAL CAPS Take as directed on box as needed for cold/flu symptoms DEXTROMETHORPHAN-GUAIFENESIN 65855983475 Active Cherelle Speaks ENROLLMENT COUNSELOR Active OMEGA-3 300 MG ORAL CAPS 4 caps by mouth daily OMEGA-3 FATTY ACIDS 90021790983 Active Mima Erazo ENROLLMENT COUNSELOR Active FLUVOXAMINE MALEATE 100 MG ORAL TABS Take 1/2 tab at noon FLUVOXAMINE MALEATE 12225651749 No Longer Active Cherelle Speaks ENROLLMENT COUNSELOR Active [facility] LUBRICANT EYE DROPS 0.4-0.3 % OPHTH SOLN POLYETHYL GLYCOL-PROPYL GLYCOL 97599286717 Active Mima Erazo ENROLLMENT COUNSELOR Active CLONAZEPAM 1 MG TABS 1/2 pill by mouth three times daily CLONAZEPAM 14769775895 Active Mason Loredo MD Active MIRALAX POWD 17g by mouth daily, for constipation POLYETHYLENE GLYCOL 3350 15446315230 Active Alina Castaneda MD PhD Active HYDROCODONE-ACETAMINOPHEN 5-325 MG TABS 2 tabs by mouth three times daily for pain HYDROCODONE-ACETAMINOPHEN 12894931440 Active Mima Erazo ENROLLMENT COUNSELOR Active HUMALOG KWIKPEN 100 UNIT/ML SC SOPN 20 units with breakfast, 10 units with lunch, 10 units with dinner, for diabetes INSULIN LISPRO (HUMAN ) 40964397374 Active Alina Castaneda MD PhD Active LATUDA 120 MG ORAL TABS 1 pill by mouth nightly LURASIDONE HCL 19036723514 Active Ailna Castaneda MD PhD Active TRUETEST TEST STRP check blood sugars 3x/day GLUCOSE BLOOD 85575695156 Active Marvel Charles GARMENT PATTERNMAKER Active ACCU-CHEK ROSA UZMA Use device to check blood sugars BLOOD GLUCOSE MONITORING SUPPL 29806695243 No Longer Active Marvel Charles GARMENT PATTERNMAKER Active ACCU-CHEK ROSA INVITR STRP use strips with device to check blood sugars 3 times daily GLUCOSE BLOOD 20017178618 No Longer Active Marvel MARROQUIN Active VERAPAMIL HCL ER 180 MG ORAL CR-TABS 1 pill by mouth twice daily, for migraine prevention VERAPAMIL HCL 09343245749 Active CRYSTAL Rodrigues Active CYCLOBENZAPRINE HCL 10 MG TABS 1 tablet by mouth three times daily, scheduled CYCLOBENZAPRINE HCL 11156301429 No Longer Active Alina Castaneda MD PhD Active HUMALOG 100 UNIT/ML SOLN Take 20 units with breakfast, 10u with lunch and suppetr. INSULIN LISPRO (HUMAN) 99316789459 No Longer Active Alina Castaneda MD PhD Active TRUETEST TEST STRP check sugars 4x/day GLUCOSE BLOOD 16728607426 No Longer Active Alina Castaneda MD PhD Active MORPHINE SULFATE 30 MG TABS 1 pill by mouth twice daily, for pain MORPHINE SULFATE 59932546546 Active aMson Loredo MD Active ACYCLOVIR 400 MG ORAL TABS 1 pill three times daily x 5 days, for cold sore outbreak ACYCLOVIR 16268356384 No Longer Active Alina Castaneda MD PhD Active PENICILLIN V POTASSIUM 500 MG TABS 1 pill by mouth three times daily PENICILLIN V POTASSIUM 69703037815 No Longer Active Alina Castaneda MD PhD Active UROXATRAL 10 MG [id number] Take 1 tablet by mouth daily ALFUZOSIN HCL 39540950819 No Longer Active Alina Castaneda MD PhD Active THIOTHIXENE 5 MG CAPS by mouth twice a day THIOTHIXENE 30652470236 No Longer Active Alina Castaneda MD PhD Active ZYPREXA 7.5 MG TABS 1 at HS OLANZAPINE 72502602408 No Longer Active Alina Castaneda MD PhD Active BD INSULIN SYRINGE 28G X 1/2" 1 ML MISC 1 four times per day INSULIN SYRINGE-NEEDLE U-100 66542232624 Active Marvel MARROQUIN Active DETROL LA 4 MG [id number] Take 1 tablet by mouth daily TOLTERODINE TARTRATE 71695368775 No Longer Active Alina Castaneda MD PhD Active TERESE CONTOUR TEST STRP monitor blood sugars 3x/day GLUCOSE BLOOD 17107924603 No Longer Active Alina Castaneda MD PhD Active EQL TRUETEST TEST STRP Test blood sugar TID GLUCOSE BLOOD 13446826207 No Longer Active Alina Castaneda MD PhD Active FLUTICASONE PROPIONATE 50 MCG/ACT SUSP 2 sprays each nostril qDay x 30 days FLUTICASONE PROPIONATE 80599426656 No Longer Active Alina Castaneda MD PhD Active IBUPROFEN 200 MG TABS 1 Q 6 hr. PRN IBUPROFEN 24986712447 No Longer Active Alina Castaneda MD PhD Active NIACIN ER 500 MG CR-TABS 4 qHS (for triglycerides) NIACIN 27239087545 No Longer Active Alina Castaneda MD PhD Active ALFUZOSIN HCL ER 10 MG [id number] 1 tablet daily ALFUZOSIN HCL 47259959744 Active CRYSTAL Rodrigues Active SAPHRIS 5 MG SUBL by mouth twice a day ASENAPINE MALEATE 00333684867 No Longer Active Marvel MARROQUIN Active ACETAMINOPHEN 500 MG TABS 2 Q 6 hr. PRN ACETAMINOPHEN 03858187063 No Longer Active Marvel MARROQUIN Active ORPHENADRINE CITRATE ER 100 MG [id number] 1 every 12 hr. as needed ORPHENADRINE CITRATE 82555127393 No Longer Active Alina Castaneda MD PhD Active NIACIN CR 500 MG CR-TABS 2 qHS NIACIN 25877351613 No Longer Active Alina Castaneda MD PhD Active AMOXICILLIN 500 MG CAPS 2 po BID x 10 days AMOXICILLIN 53464147526 No Longer Active Alina Castaneda MD PhD Active HYDROCODONE-ACETAMINOPHEN 7.5-325 MG TABS 1 four times a day as needed for pain HYDROCODONE-ACETAMINOPHEN 39192515883 No Longer Active Alina Castaneda MD PhD Active DOXEPIN HCL 10 MG CAPS Take 1 tablet by mouth daily DOXEPIN HCL 23300682616 No Longer Active Salina Han A Active NAVANE 10 MG CAPS 1/2 tablet twice a day THIOTHIXENE No Longer Active Salina Han A Active CYCLOBENZAPRINE HCL 10 MG TABS 1/2 tablet by mouth every 8 hours as needed for muscle spasms CYCLOBENZAPRINE HCL 33545599564 No Longer Active Alina Castaneda MD PhD Active BACTROBAN 2 % CREAM apply to ear and nose twice daily MUPIROCIN CALCIUM 96507524434 No Longer Active Alina Castaneda MD PhD Active HYDROCODONE-ACETAMINOPHEN 5-325 MG TABS take one tablet by mouth every four hours as needed for pain HYDROCODONE-ACETAMINOPHEN 56723452615 No Longer Active Alina Castaneda MD PhD Active ZOLPIDEM TARTRATE 10 MG TABS take at bedtime ZOLPIDEM TARTRATE 85090703527 Active Alina Castaneda MD PhD Active ZYPREXA 5 MG TABS take one tablet by mouth every evening OLANZAPINE 39724464361 No Longer Active Alina Castaneda MD PhD Active ALBUTEROL SULFATE 0.083 % NEBU SOLN one vial per nebulizer TID and PRN cough/ soa ALBUTEROL SULFATE 07814526507 No Longer Active Alina Castaneda MD PhD Active GUAIFENESIN 600 MG [id number]-APR 1 tablet by mouth twice daily if needed for cough GUAIFENESIN 63237560409 No Longer Active Marvel MARROQUIN Active AZITHROMYCIN 500 MG SOLR 1 po q day AZITHROMYCIN 07913609043 No Longer Active Alina Castaneda MD PhD Active PROMETHAZINE-CODEINE 6.25-10 MG/5ML SYRP 1 tsp po q 6 hours prn cough PROMETHAZINE-CODEINE 49291247935 No Longer Active Alina Castaneda MD PhD Active CEFDINIR 300 MG CAPS by mouth twice a day CEFDINIR 77574730933 No Longer Active Alina Castaneda MD PhD Active METFORMIN HCL 500 MG [id number]-LJK Take 3 tablets by mouth everyday METFORMIN HCL 34055450238 No Longer Active Alina Castaneda MD PhD Active LEVEMIR 100 UNIT/ML SOLN 90 units SQ qHS INSULIN DETEMIR 17928306254 No Longer Active Marvel MARROQUIN Active TOPROL XL 100 MG [id number]-VRA 1 @ HS METOPROLOL SUCCINATE 24055947562 No Longer Active Marvel MARROQUIN Active ALLOPURINOL 300 MG TABS Take one by mouth daily ALLOPURINOL 24501501207 Active Mima Erazo ENROLLMENT COUNSELOR Active ZYPREXA 10 MG TABS Take one by mouth daily OLANZAPINE 54325877611 No Longer Active Alina Castaneda MD PhD Active NOVOLOG 100 UNIT/ML SOLN 40 units with every meal INSULIN ASPART 68828670318 No Longer Active Alina Castaneda MD PhD Active VERAPAMIL HCL CR 120 MG TAB CR 1 qPM VERAPAMIL HCL 95789413534 No Longer Active Salina ROJAS Active ZYPREXA 15 MG TABS Take 1 tablet by mouth daily OLANZAPINE 93877655933 No Longer Active Marvel MARROQUIN Active LISINOPRIL 20 MG TABS 1 BID LISINOPRIL 50699875261 Active Alina Castaneda MD PhD Active ALBUTEROL SULFATE (2.5 MG/3ML) 0.083% NEBU 1 neb tid and prn cough ALBUTEROL SULFATE 91400466225 No Longer Active Alina Castaneda MD PhD Active TRAVATAN Z 0.004 % SOLN 1 gtt each eye daily TRAVOPROST 81228092058 Active CRYSTAL Suarez Active LANTUS 100 UNIT/ML SOLN 60 units sq q hs INSULIN GLARGINE 15123402321 No Longer Active CRYSTAL Suarez Active ALBUTEROL SULFATE (2.5 MG/3ML) 0.083% NEBU 1 neb tid and prn cough ALBUTEROL SULFATE (2.5 MG/3ML) 0.083% NEBU 534135 ALBUTEROL SULFATE Inactive ZYPREXA 15 MG TABS Take 1 tablet by mouth daily ZYPREXA 15 MG TABS 748430 OLANZAPINE Inactive VERAPAMIL HCL CR 120 MG TAB CR 1 qPM VERAPAMIL HCL CR 120 MG TAB CR VERAPAMIL HCL Inactive ZYPREXA 10 MG TABS Take one by mouth daily ZYPREXA 10 MG TABS 123737 OLANZAPINE Inactive TOPROL XL 100 MG [id number]-[id number] 1 @ HS TOPROL XL 100 MG [id number] METOPROLOL SUCCINATE Inactive LEVEMIR 100 UNIT/ML SOLN 90 units SQ qHS LEVEMIR 100 UNIT/ML SOLN INSULIN DETEMIR Inactive PROMETHAZINE-CODEINE 6.25-10 MG/5ML SYRP 1 tsp po q 6 hours prn cough PROMETHAZINE-CODEINE 6.25-10 MG/5ML SYRP 648157 PROMETHAZINE- CODEINE Inactive GUAIFENESIN 600 MG [id number] 1 tablet by mouth twice daily if needed for cough GUAIFENESIN 600 MG [id number] GUAIFENESIN Inactive ALBUTEROL SULFATE 0.083 % NEBU SOLN one vial per nebulizer TID and PRN cough/ soa ALBUTEROL SULFATE 0.083 % NEBU SOLN 804482 ALBUTEROL SULFATE Inactive ZYPREXA 5 MG TABS take one tablet by mouth every evening ZYPREXA 5 MG TABS 213842 OLANZAPINE Inactive HYDROCODONE-ACETAMINOPHEN 5-325 MG TABS take one tablet by mouth every four hours as needed for pain HYDROCODONE-ACETAMINOPHEN 5-325 MG TABS 586071 HYDROCODONE-ACETAMINOPHEN Inactive BACTROBAN 2 % CREAM apply to ear and nose twice daily BACTROBAN 2 % CREAM 587032 MUPIROCIN CALCIUM Inactive CYCLOBENZAPRINE HCL 10 MG TABS 1/2 tablet by mouth every 8 hours as needed for muscle spasms CYCLOBENZAPRINE HCL 10 MG TABS 466589 CYCLOBENZAPRINE HCL Inactive NAVANE 10 MG CAPS 1/2 tablet twice a day NAVANE 10 MG CAPS THIOTHIXENE Inactive DOXEPIN HCL 10 MG CAPS Take 1 tablet by mouth daily DOXEPIN HCL 10 MG CAPS 6281997 DOXEPIN HCL Inactive HYDROCODONE-ACETAMINOPHEN 7.5-325 MG TABS 1 four times a day as needed for pain HYDROCODONE-ACETAMINOPHEN 7.5-325 MG TABS 812597 HYDROCODONE-ACETAMINOPHEN Inactive NIACIN CR 500 MG CR-TABS 2 qHS NIACIN CR 500 MG CR- TABS NIACIN Inactive ORPHENADRINE CITRATE ER 100 MG [id number] 1 every 12 hr. as needed ORPHENADRINE CITRATE ER 100 MG [id number]-QUW ORPHENADRINE CITRATE Inactive ACETAMINOPHEN 500 MG TABS 2 Q 6 hr. PRN ACETAMINOPHEN 500 MG TABS 378298 ACETAMINOPHEN Inactive SAPHRIS 5 MG SUBL by mouth twice a day SAPHRIS 5 MG SUBL ASENAPINE MALEATE Inactive NIACIN ER 500 MG CR-TABS 4 qHS (for triglycerides) NIACIN ER 500 MG CR-TABS NIACIN Inactive IBUPROFEN 200 MG TABS 1 Q 6 hr. PRN IBUPROFEN 200 MG TABS 808082 IBUPROFEN Inactive FLUTICASONE PROPIONATE 50 MCG/ACT SUSP 2 sprays each nostril qDay x 30 days FLUTICASONE PROPIONATE 50 MCG/ACT SUSP 232184 FLUTICASONE PROPIONATE Inactive EQL TRUETEST TEST STRP Test blood sugar TID EQL TRUETEST TEST STRP GLUCOSE BLOOD Inactive TERESE CONTOUR TEST STRP monitor blood sugars 3x/day TERESE CONTOUR TEST STRP GLUCOSE BLOOD Inactive DETROL LA 4 MG [id number] Take 1 tablet by mouth daily DETROL LA 4 MG [id number] TOLTERODINE TARTRATE Inactive ZYPREXA 7.5 MG TABS 1 at HS ZYPREXA 7.5 MG TABS 375824 OLANZAPINE Inactive THIOTHIXENE 5 MG CAPS by mouth twice a day THIOTHIXENE 5 MG CAPS 379393 THIOTHIXENE Inactive UROXATRAL 10 MG [id number] Take 1 tablet by mouth daily UROXATRAL 10 MG [id number]-LJW ALFUZOSIN HCL Inactive ACYCLOVIR 400 MG ORAL TABS 1 pill three times daily x 5 days, for cold sore outbreak ACYCLOVIR 400 MG ORAL TABS 422208 ACYCLOVIR Inactive TRUETEST TEST STRP check sugars 4x/day TRUETEST TEST STRP GLUCOSE BLOOD Inactive HUMALOG 100 UNIT/ML SOLN Take 20 units with breakfast, 10u with lunch and suppetr. HUMALOG 100 UNIT/ML SOLN INSULIN LISPRO ( HUMAN) Inactive CYCLOBENZAPRINE HCL 10 MG TABS 1 tablet by mouth three times daily, scheduled CYCLOBENZAPRINE HCL 10 MG TABS 950814 CYCLOBENZAPRINE HCL Inactive ACCU-CHEK ROSA INVITR STRP use strips with device to check blood sugars 3 times daily ACCU-CHEK ROSA INVITR STRP GLUCOSE BLOOD Inactive ACCU-CHEK ROSA UZMA Use device to check blood sugars ACCU-CHEK ROSA UZMA BLOOD GLUCOSE MONITORING SUPPL Inactive FLUVOXAMINE MALEATE 100 MG ORAL TABS Take 1/2 tab at noon FLUVOXAMINE MALEATE 100 MG ORAL TABS 602490 FLUVOXAMINE MALEATE Inactive FLUVOXAMINE MALEATE 100 MG TABS Take one (1) tablet by mouth am, 1/2 at noon FLUVOXAMINE MALEATE 100 MG TABS 349420 FLUVOXAMINE MALEATE Inactive BACTROBAN 2 % CREAM Apply to affected area BID for up to 10 days BACTROBAN 2 % CREAM 865006 MUPIROCIN CALCIUM Inactive NOVOFINE 32G X 6 MM MISC use one four times per day NOVOFINE 32G X 6 MM MISC INSULIN PEN NEEDLE Inactive TRAZODONE HCL 100 MG ORAL TABS 1 tab by mouth for sleep TRAZODONE HCL 100 MG ORAL TABS 616976 TRAZODONE HCL Inactive LOVAZA 1 GM CAPS 4 daily (for triglycerides) LOVAZA 1 GM CAPS 533717 EATWW-2-NZJH ETHYL ESTERS Inactive METFORMIN HCL ER 500 MG [id number]-JYT Take three tablets by mouth everyday METFORMIN HCL ER 500 MG [id number]-YUH METFORMIN HCL Inactive METOPROLOL SUCCINATE 100 MG ZJ31F-FJK 1 by mouth daily for blood pressure METOPROLOL SUCCINATE 100 MG LY35N-HFE METOPROLOL SUCCINATE Inactive AMITIZA 24 MCG ORAL CAPS Take one capsule BID for constipation. AMITIZA 24 MCG ORAL CAPS LUBIPROSTONE Inactive TOLTERODINE TARTRATE 2 MG TABS 1 pill twice daily, for bladder TOLTERODINE TARTRATE 2 MG TABS 684864 TOLTERODINE TARTRATE Inactive COLACE 100 MG CAPS 1 pill by mouth twice daily, for constipation COLACE 100 MG CAPS 8563384 DOCUSATE SODIUM Inactive CEFDINIR 300 MG CAPS by mouth twice a day CEFDINIR 300 MG CAPS 920036 CEFDINIR Inactive AZITHROMYCIN 500 MG SOLR 1 po q day AZITHROMYCIN 500 MG SOLR 76199493171 AZITHROMYCIN Inactive AMOXICILLIN 500 MG CAPS 2 po BID x 10 days AMOXICILLIN 500 MG CAPS 928257 AMOXICILLIN Inactive PENICILLIN V POTASSIUM 500 MG TABS 1 pill by mouth three times daily PENICILLIN V POTASSIUM 500 MG TABS 497036 PENICILLIN V POTASSIUM Inactive KEFLEX 500 MG CAP 1 po BID x 7 days KEFLEX 500 MG CAP 863986 CEPHALEXIN Inactive Immunizations Vaccine Administration Date Value [...] Fluvirin, Fluarix, Agriflu(>=18 yo)) Fluzone (>3 yrs.) [[id number]] Influenza, seasonal, injectable pneumococcal immunization administered Pneumovax [...] Panel - Chemistry sodium, serum 137 mmol/L 600-589 1463/10/12 potassium, serum 4.8 mmol/L 3.5-5.2 chloride, serum 102 mmol/L 98-107 carbon dioxide, venous blood 27.6 mmol/L 21.0-32.0 blood glucose 168 mg/dL 65-110 calcium, serum 9.0 mg/dL 8.5-10.1 urea nitrogen, blood 15 mg/dL 7-18 creatinine, serum 1.04 mg/dL 0.55-1.30 sodium, serum 138 mmol/L 029-918 4269/11/11 potassium, serum 4.7 mmol/L 3.5-5.2 chloride, serum [...] % 11.6-14.8 platelet count 240 10^3/MM^3 10*3/mm3 484-936 6051/11/11 leukocyte count, blood 9.6 10^3/MM^3 10*3/mm3 4.6-10.2 [...] Acid - Chemistry cholesterol, serum 187 mg/dL 962-452 2205/06/14 triglyceride, serum, fasting 246 mg/dL 30-200 HDL [...] 4.7 mg/dL 2.6-7.2 cholesterol, serum 142 mg/dL 985-517 6749/06/26 triglyceride, serum, fasting 272 mg/dL 30-200 HDL [...] negative Encounters Code Encounter Date Provider Facility CPT-05376 Level 3 Est. Patient 16:27:51 CDT Mima Erazo [facility] CPT-71796 Level 3 Est. Patient 14:39:00 CREW LEADER GLUING Vanessa Hickey MD [facility]-26213 Level 2 Est. Patient 18:43:34 CDT Mima Erazo [facility] CPT-43774 Level 3 Est. Patient 16:22:09 CDT Cherelle Avila [facility] CPT-66635 Level 4 Est. Patient 17:55:14 CDT Mima Erazo [facility] CPT-49592 Level 2 Est. Patient 17:13:21 CDT Alina Castaneda MD PhD [facility] CPT-75490 Level 3 Est. Patient 14:46:15 CDT Vanessa Hickey MD [facility]-91993 Level 3 Est. Patient 09:34:56 CDT Alina Castaneda MD PhD [facility]32118 Level 3 Est. Patient 21:40:19 CDT Mima Erazo [facility] CPT-79477 Level 3 Est. Patient 09:26:40 CDT Marvel Charles [facility]-00614 Level 3 Est. Patient 12:36:43 CDT Vanessa Hickey MD [facility]-69562 Level 3 Est. Patient 12:57:49 CDT Vanessa Hickey MD [facility]-85383 Level 3 Est. Patient 00:28:25 CDT Alina Castaneda MD [facility]01693 Level 2 Est. Patient 12:52:14 CDT Alina Castaneda MD [facility]55473 Level 3 Est. Patient 11:51:18 CREW LEADER GLUING Alina Castaneda MD [facility]44964 Level 3 Est. Patient 10:09:22 CREW LEADER GLUING Alina Castaneda MD [facility]54176 Level 3 Est. Patient 14:36:26 CREW LEADER GLUING Marvel Charles [facility]-99060 Level 3 Est. Patient 13:34:47 CREW LEADER GLUING Alina Castaneda MD [facility]39102 Level 3 Est. Patient 19:52:08 CREW LEADER GLUING Alina Castaneda MD [facility]30995 Level 3 Est. Patient 10:01:51 CREW LEADER GLUING Marvel Charles [facility]-74632 Level 3 Est. Patient 21:54:06 CDT Vanessa Hickey MD [facility]-49475 Level 3 Est. Patient 08:54:46 CDT Alina Castaneda MD [facility]18768 Level 3 Est. Patient 09:32:11 CDT Marvel Charles [facility]70261 Level 3 Est. Patient 12:02:49 CDT Alina Castaneda MD [facility]86670 Level 3 Est. Patient 19:17:33 CDT Alina Castaneda MD [facility]-61886 Level 3 Est. Patient 13:19:10 CDT Marvel Gurdeepajayestela [facility]-95233 Level 3 Est. Patient 08:20:05 CDT Alina Castaneda MD [facility]-91503 Level 3 Est. Patient 15:17:18 CDT Alina Castaneda MD [facility]-41873 Level 3 Est. Patient 14:25:[address] [facility]-20920 Level 3 Est. Patient 10:09:[address] [facility] Level 3 Est. Patient 21:28:43 CDT Alina Castaneda MD [facility]-70336 Level 3 Est. Patient 15:20:[address] [facility] Gurdeepajayestela [facility]-84836 Level 4 Est. Patient 19:08:12 CDT Alina Castaneda MD [facility]-12063 Level 3 Est. Patient 15:06:39 CDT Marvel Araceli [facility]-50767 Level 4 Est. Patient 17:48:15 CDT Alina Castaneda MD [facility]-46327 Level 3 Est. Patient 14:53:49 CDT Alina Castaneda MD [facility]-13450 Level 3 Est. Patient 09:35:16 CDT Alina Castaneda MD [facility]-87380 Level 3 Est. Patient 12:23:22 CDT Alina Castaneda MD [facility]-72687 Level 3 Est. Patient 16:19:15 CDT Alina Castaneda MD [facility]-06763 Level 3 Est. Patient 21:39:56 CREW LEADER GLUING Alina Castaneda MD [facility]-47874 Level 4 Est. Patient 14:12:56 CREW LEADER GLUING Alina Castaneda MD [facility]-52874 Level 2 Est. Patient 15:34:57 CREW LEADER GLUING Alina Castaneda MD [facility]-93246 Level 3 Est. Patient 12:17:04 CREW LEADER GLUING Alina Castaneda MD [facility]-83086 Level 3 Est. Patient 09:18:18 CREW LEADER GLUING [facility]-94051 Level 2 Est. Patient 21:50:24 CDT Alina Castaneda MD [facility]-98125 Level 3 Est. Patient 09:17:28 CDT Marvel Charles [facility]-04519 Level 4 Est. Patient 18:54:02 CDT Alina Castaneda MD [facility]-12758 Level 3 Est. Patient 10:47:10 CDT Alina Castaneda [facility] [facility]-74467 Level 3 Est. Patient 09:22:20 CDT Marvel Charels [facility]-41586 Level 3 Est. Patient 16:39:43 CDT Marvel Charles [facility]-80448 Level 3 Est. Patient 16:05:16 CDT Alina Castaneda MD [facility]-72801 Level 3 Est. Patient 00:29:15 CDT Alina Castaneda MD PhD [facility] CPT-55220 Level 3 Est. Patient 10:49:22 CREW LEADER GLUING Marvel Charles [facility] CPT-80858 Level 3 Est. Patient 21:30:19 CREW LEADER GLUING Alina Castaneda MD PhD [facility] CPT-99357 Level 4 Est. Patient 17:04:11 CREW LEADER GLUING Brooksnivia Mackenzieestela [facility] CPT-03034 Level 3 Est. Patient 15:34:[address] [facility] CPT-67708 Level 2 Est. Patient 12:51:58 CREW LEADER GLUING Alina Castaneda MD [facility] CPT-73217 Level 3 Est. Patient 13:20:01 CREW LEADER GLUING Alina Castaneda MD PhD [facility] CPT-94702 Level 3 Est. Patient 09:23:35 CDT Alina Castaneda MD PhD [facility] Procedures Code Procedure Name Date Entry Date Standard Description CPT-86943 Bladder Scan 14:39:01 CREW LEADER GLUING CPT-TCMM Transitional Care Mgmt-Moderate 10:30:19 CREW LEADER GLUING CPT-40351 Bladder Scan 12:36:44 CDT CPT-16446 Bladder Scan 21:54:06 CDT CPT-G0008 Administration of Influenza Virus Vaccine 13:05:26 CDT CPT-14109 Fluzone Quadrivalent Intramuscular Suspension 0.5 ML 13: 05:26 CDT CPT-64577 Administration single or combination vaccine inc oral 11 :49:51 CDT CPT-51211 Pneumovax 11:49:51 CDT CPT-14535 Ribs unilateral 2V 12:37:22 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
--- OUTSIDE RECORDS SUMMARY | 2018-07-02 15:30 | XMS REPORT | Clinical Summary ---
Author Author Admin, TERELL Organization [facility] Address Unknown Phone Unavailable Allergies, Adverse Reactions, 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 Kacey STARCH DUMPER Benign paroxysmal positional vertigo Vertigo, benign paroxysmal position 386.11 Inactive Mima Kacey STARCH DUMPER Benign paroxysmal positional vertigo High-risk sexual behavior [...] 10u lunch and supper INSULIN LISPRO (HUMAN) 41159993625 Active Marvel Araceli MARROQUIN Active LATUDA 120 MG ORAL TABS 1 pill by mouth nightly LURASIDONE HCL 60134308545 Active Alina Castaneda MD PhD Active COLACE 100 MG CAPS 1 pill by mouth twice daily, for constipation DOCUSATE SODIUM 94676214762 Active Alina Castaneda MD PhD Active TRUETEST TEST STRP check blood sugars 3x/day GLUCOSE BLOOD 67864554608 Active Malnivia 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 AUDITOR IN CHARGE Active ACCU-CHEK ROSA UZMA Use device to check blood sugars BLOOD GLUCOSE MONITORING SUPPL 26367256473 No Longer Active Marvel 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 AUDITOR IN CHARGE Active ACCU-CHEK ROSA INVITR STRP use strips with device to check blood sugars 3 times daily GLUCOSE BLOOD 17542129791 No Longer Active Brooksnivia Araceli MENDOZAP Active VERAPAMIL HCL ER 180 MG ORAL CR-TABS 1 pill by mouth twice daily, for migraine prevention VERAPAMIL HCL 49414706459 Active Alina Castaneda MD PhD Active CYCLOBENZAPRINE HCL 10 MG TABS 1 tablet by mouth three times daily, scheduled CYCLOBENZAPRINE HCL 40344672821 No Longer Active Alina Castaneda MD PhD Active HUMALOG 100 UNIT/ML SOLN Take 20 units with breakfast, 10u with lunch and suppetr. INSULIN LISPRO (HUMAN) 72312101723 No Longer Active Alina Castaneda MD PhD Active TRUETEST TEST STRP check sugars 4x/day GLUCOSE BLOOD 03001041582 No Longer Active Alina Castaneda MD PhD Active MORPHINE SULFATE 30 MG TABS 1 pill by mouth twice daily, for pain MORPHINE SULFATE 74278446634 Active Alina Castaneda MD PhD Active ACYCLOVIR 400 MG ORAL TABS 1 pill three times daily x 5 days, for cold sore outbreak ACYCLOVIR 05790575146 No Longer Active Alina Castaneda MD PhD Active PENICILLIN V POTASSIUM 500 MG TABS 1 pill by mouth three times daily PENICILLIN V POTASSIUM 92948318951 No Longer Active Alina Castaneda MD PhD Active UROXATRAL 10 MG [id number]-SQR Take 1 tablet by mouth daily ALFUZOSIN HCL 38877448008 No Longer Active Alina Castaneda MD PhD Active THIOTHIXENE 5 MG CAPS by mouth twice a day THIOTHIXENE 10972505198 No Longer Active Alina Castaneda MD PhD Active ZYPREXA 7.5 MG TABS 1 at HS OLANZAPINE 78138111233 No Longer Active Alina Castaneda MD PhD Active LEVEMIR 100 UNIT/ML SOLN Take 70 u at 7-8pm INSULIN DETEMIR 95865706809 Active Maliheh Ziglari AUDITOR IN CHARGE Active BD INSULIN SYRINGE 28G X 1/2" 1 ML MISC 1 four times per day INSULIN SYRINGE-NEEDLE U-100 55610066768 Active Mallashondaeh Ziglari AUDITOR IN CHARGE Active TOLTERODINE TARTRATE 2 MG TABS 1 pill twice daily, for bladder TOLTERODINE TARTRATE 00948543833 Active Alina Castaneda MD PhD Active DETROL LA 4 MG [id number] Take 1 tablet by mouth daily TOLTERODINE TARTRATE 41342069304 No Longer Active Alina Castaneda MD PhD Active HYDROCODONE-ACETAMINOPHEN 5-325 MG TABS 2 tabs by mouth three times daily as needed for pain HYDROCODONE-ACETAMINOPHEN 51365912398 Active Alina Castaneda MD PhD Active TERESE CONTOUR TEST STRP monitor blood sugars 3x/day GLUCOSE BLOOD 60385033466 No Longer Active Alina Castaneda MD PhD Active EQL TRUETEST TEST STRP Test blood sugar TID GLUCOSE BLOOD 67617985906 No Longer Active Alina Castaneda MD PhD Active FLUTICASONE PROPIONATE 50 MCG/ACT SUSP 2 sprays each nostril qDay x 30 days FLUTICASONE PROPIONATE 76243387525 No Longer Active Alina Castaneda MD PhD Active IBUPROFEN 200 MG TABS 1 Q 6 hr. PRN IBUPROFEN 13471133554 No Longer Active Alina Castaneda MD PhD Active NIACIN ER 500 MG CR-TABS 4 qHS (for triglycerides) NIACIN 24239276755 No Longer Active Alina Castaneda MD PhD Active ALFUZOSIN HCL ER 10 MG [id number]-[id number] 1 tablet daily ALFUZOSIN HCL 27245611439 Active Vaenssa Hickey MD Active CLONAZEPAM 1 MG TABS 1 pill by mouth three times daily CLONAZEPAM 60907457243 Active Alina Castaneda MD PhD Active LOVAZA 1 GM CAPS 4 daily (for triglycerides) [id number]-1-FHQA ETHYL ESTERS 83969370067 Active Alina Castaneda MD PhD Active SAPHRIS 5 MG SUBL by mouth twice a day ASENAPINE MALEATE 33408899268 No Longer Active Mravel MARROQUIN Active ACETAMINOPHEN 500 MG TABS 2 Q 6 hr. PRN ACETAMINOPHEN 80391395078 No Longer Active Marvel MARROQUIN Active ORPHENADRINE CITRATE ER 100 MG [id number] 1 every 12 hr. as needed ORPHENADRINE CITRATE 86922666330 No Longer Active Alina Castaneda MD PhD Active NIACIN CR 500 MG CR-TABS 2 qHS NIACIN 88823039464 No Longer Active Alina Castaneda MD PhD Active AMOXICILLIN 500 MG CAPS 2 po BID x 10 days AMOXICILLIN 23950993371 No Longer Active Alina Castaneda MD PhD Active HYDROCODONE-ACETAMINOPHEN 7.5-325 MG TABS 1 four times a day as needed for pain HYDROCODONE-ACETAMINOPHEN 03005854518 No Longer Active Alina Castaneda MD PhD Active METFORMIN HCL ER 500 MG [id number]-JYQ Take three tablets by mouth everyday METFORMIN HCL 03465782286 Active Marvel Mackenzieglestela AUDITOR IN CHARGE Active DOXEPIN HCL 10 MG CAPS Take 1 tablet by mouth daily DOXEPIN HCL 33450968940 No Longer Active Salina Han [facility] Active NAVANE 10 MG CAPS 1/2 tablet twice a day THIOTHIXENE No Longer Active Salina Han A Active CYCLOBENZAPRINE HCL 10 MG TABS 1/2 tablet by mouth every 8 hours as needed for muscle spasms CYCLOBENZAPRINE HCL 43094663551 No Longer Active Alina Castaneda MD PhD Active BACTROBAN 2 % CREAM apply to ear and nose twice daily MUPIROCIN CALCIUM 63523260469 No Longer Active Alina Castaneda MD PhD Active HYDROCODONE-ACETAMINOPHEN 5-325 MG TABS take one tablet by mouth every four hours as needed for pain HYDROCODONE-ACETAMINOPHEN 73318851295 No Longer Active Alina Castaneda MD PhD Active ZOLPIDEM TARTRATE 10 MG TABS take at bedtime ZOLPIDEM TARTRATE 04931273897 Active Alina Castaneda MD PhD Active ZYPREXA 5 MG TABS take one tablet by mouth every evening OLANZAPINE 72441230914 No Longer Active Alina Castaneda MD PhD Active ALBUTEROL SULFATE 0.083 % NEBU SOLN one vial per nebulizer TID and PRN cough/ soa ALBUTEROL SULFATE 54033998026 No Longer Active Alina Castaneda MD PhD Active GUAIFENESIN 600 MG OK26A-CSW 1 tablet by mouth twice daily if needed for cough GUAIFENESIN 73896047328 No Longer Active Marvel Charles [facility] Active AZITHROMYCIN 500 MG SOLR 1 po q day AZITHROMYCIN 85335549650 No Longer Active Alina Castaneda MD PhD Active METOPROLOL SUCCINATE 100 MG MQ61N-OHY 1 by mouth daily for blood pressure METOPROLOL SUCCINATE 11523335608 Active Alina Castaneda MD PhD Active PROMETHAZINE-CODEINE 6.25-10 MG/5ML SYRP 1 tsp po q 6 hours prn cough PROMETHAZINE-CODEINE 55300008198 No Longer Active Alina Castaneda MD PhD Active CEFDINIR 300 MG CAPS by mouth twice a day CEFDINIR 51781035179 No Longer Active Alina Castaneda MD PhD Active METFORMIN HCL 500 MG NA50P-KEB Take 3 tablets by mouth everyday METFORMIN HCL 34106274949 No Longer Active Alian Castaneda MD PhD Active LEVEMIR 100 UNIT/ML SOLN 90 units SQ qHS INSULIN DETEMIR 18397217193 No Longer Active Marvle MARROQUIN Active TOPROL XL 100 MG [id number]-GGN 1 @ HS METOPROLOL SUCCINATE 08841637159 No Longer Active Marvel MARROQUIN Active ALLOPURINOL 300 MG TABS Take one by mouth daily ALLOPURINOL 23738199611 Active Alina Castaneda MD PhD Active ZYPREXA 10 MG TABS Take one by mouth daily OLANZAPINE 64411117270 No Longer Active Alina Castaneda MD PhD Active NOVOLOG 100 UNIT/ML SOLN 40 units with every meal INSULIN ASPART 33109444386 No Longer Active Alina Castaneda MD PhD Active VERAPAMIL HCL CR 120 MG TAB CR 1 qPM VERAPAMIL HCL 35185487162 No Longer Active Salina Han A Active ZYPREXA 15 MG TABS Take 1 tablet by mouth daily OLANZAPINE 74426321208 No Longer Active Marvel MARROQUIN Active LISINOPRIL 20 MG TABS 1 BID LISINOPRIL 99261002175 Active Alina Castaneda MD PhD Active ALBUTEROL SULFATE (2.5 MG/3ML) 0.083% NEBU 1 neb tid and prn cough ALBUTEROL SULFATE 60201384593 No Longer Active Alina Castaneda MD PhD Active FLUVOXAMINE MALEATE 100 MG TABS Take one (1) tablet by mouth am, 1/2 at noon, 1 pm FLUVOXAMINE MALEATE 60263045036 Active Alina Castaneda MD PhD Active TRAVATAN Z 0.004 % SOLN 1 gtt each eye daily TRAVOPROST 77070563771 Active CRYSTAL Suarez Active LANTUS 100 UNIT/ML SOLN 60 units sq q hs INSULIN GLARGINE 74911022122 No Longer Active CRYSTAL Suarez Active ALBUTEROL SULFATE (2.5 MG/3ML) 0.083% NEBU 1 neb tid and prn cough ALBUTEROL SULFATE (2.5 MG/3ML) 0.083% NEBU 394041 ALBUTEROL SULFATE Inactive ZYPREXA 15 MG TABS Take 1 tablet by mouth daily ZYPREXA 15 MG TABS 712417 OLANZAPINE Inactive VERAPAMIL HCL CR 120 MG TAB CR 1 qPM VERAPAMIL HCL CR 120 MG TAB CR VERAPAMIL HCL Inactive ZYPREXA 10 MG TABS Take one by mouth daily ZYPREXA 10 MG TABS 238317 OLANZAPINE Inactive TOPROL XL 100 MG [id number] 1 @ HS TOPROL XL 100 MG CW29E-QBX METOPROLOL SUCCINATE Inactive LEVEMIR 100 UNIT/ML SOLN 90 units SQ qHS LEVEMIR 100 UNIT/ML SOLN INSULIN DETEMIR Inactive PROMETHAZINE-CODEINE 6.25-10 MG/5ML SYRP 1 tsp po q 6 hours prn cough PROMETHAZINE-CODEINE 6.25-10 MG/5ML SYRP 905744 PROMETHAZINE- CODEINE Inactive GUAIFENESIN 600 MG OY71X-AGM 1 tablet by mouth twice daily if needed for cough GUAIFENESIN 600 MG PM91O-TEC GUAIFENESIN Inactive ALBUTEROL SULFATE 0.083 % NEBU SOLN one vial per nebulizer TID and PRN cough/ soa ALBUTEROL SULFATE 0.083 % NEBU SOLN 865699 ALBUTEROL SULFATE Inactive ZYPREXA 5 MG TABS take one tablet by mouth every evening ZYPREXA 5 MG TABS 670739 OLANZAPINE Inactive HYDROCODONE-ACETAMINOPHEN 5-325 MG TABS take one tablet by mouth every four hours as needed for pain HYDROCODONE-ACETAMINOPHEN 5-325 MG TABS 507539 HYDROCODONE-ACETAMINOPHEN Inactive BACTROBAN 2 % CREAM apply to ear and nose twice daily BACTROBAN 2 % CREAM 705111 MUPIROCIN CALCIUM Inactive CYCLOBENZAPRINE HCL 10 MG TABS 1/2 tablet by mouth every 8 hours as needed for muscle spasms CYCLOBENZAPRINE HCL 10 MG TABS 065847 CYCLOBENZAPRINE HCL Inactive NAVANE 10 MG CAPS 1/2 tablet twice a day NAVANE 10 MG CAPS THIOTHIXENE Inactive DOXEPIN HCL 10 MG CAPS Take 1 tablet by mouth daily DOXEPIN HCL 10 MG CAPS 7537545 DOXEPIN HCL Inactive HYDROCODONE-ACETAMINOPHEN 7.5-325 MG TABS 1 four times a day as needed for pain HYDROCODONE-ACETAMINOPHEN 7.5-325 MG TABS 701108 HYDROCODONE-ACETAMINOPHEN Inactive NIACIN CR 500 MG CR-TABS 2 qHS NIACIN CR 500 MG CR- TABS NIACIN Inactive ORPHENADRINE CITRATE ER 100 MG [id number] 1 every 12 hr. as needed ORPHENADRINE CITRATE ER 100 MG [id number]-FLN ORPHENADRINE CITRATE Inactive ACETAMINOPHEN 500 MG TABS 2 Q 6 hr. PRN ACETAMINOPHEN 500 MG TABS 123236 ACETAMINOPHEN Inactive SAPHRIS 5 MG SUBL by mouth twice a day SAPHRIS 5 MG SUBL ASENAPINE MALEATE Inactive NIACIN ER 500 MG CR-TABS 4 qHS (for triglycerides) NIACIN ER 500 MG CR-TABS NIACIN Inactive IBUPROFEN 200 MG TABS 1 Q 6 hr. PRN IBUPROFEN 200 MG TABS 967035 IBUPROFEN Inactive FLUTICASONE PROPIONATE 50 MCG/ACT SUSP 2 sprays each nostril qDay x 30 days FLUTICASONE PROPIONATE 50 MCG/ACT SUSP 073830 FLUTICASONE PROPIONATE Inactive EQL TRUETEST TEST STRP Test blood sugar TID EQL TRUETEST TEST STRP GLUCOSE BLOOD Inactive TERESE CONTOUR TEST STRP monitor blood sugars 3x/day TERESE CONTOUR TEST STRP GLUCOSE BLOOD Inactive DETROL LA 4 MG GE35X-JCF Take 1 tablet by mouth daily DETROL LA 4 MG [id number] TOLTERODINE TARTRATE Inactive ZYPREXA 7.5 MG TABS 1 at HS ZYPREXA 7.5 MG TABS 555484 OLANZAPINE Inactive THIOTHIXENE 5 MG CAPS by mouth twice a day THIOTHIXENE 5 MG CAPS 260580 THIOTHIXENE Inactive UROXATRAL 10 MG VN37U-IWO Take 1 tablet by mouth daily UROXATRAL 10 MG [id number]-VVB ALFUZOSIN HCL Inactive ACYCLOVIR 400 MG ORAL TABS 1 pill three times daily x 5 days, for cold sore outbreak ACYCLOVIR 400 MG ORAL TABS 802904 ACYCLOVIR Inactive TRUETEST TEST STRP check sugars 4x/day TRUETEST TEST STRP GLUCOSE BLOOD Inactive HUMALOG 100 UNIT/ML SOLN Take 20 units with breakfast, 10u with lunch and suppetr. HUMALOG 100 UNIT/ML SOLN INSULIN LISPRO ( HUMAN) Inactive CYCLOBENZAPRINE HCL 10 MG TABS 1 tablet by mouth three times daily, scheduled CYCLOBENZAPRINE HCL 10 MG TABS 089557 CYCLOBENZAPRINE HCL Inactive ACCU-CHEK ROSA INVITR STRP use strips with device to check blood sugars 3 times daily ACCU-CHEK ROSA INVITR STRP GLUCOSE BLOOD Inactive ACCU-CHEK ROSA UZMA Use device to check blood sugars ACCU-CHEK ROSA UZMA BLOOD GLUCOSE MONITORING SUPPL Inactive CEFDINIR 300 MG CAPS by mouth twice a day CEFDINIR 300 MG CAPS 931402 CEFDINIR Inactive AZITHROMYCIN 500 MG SOLR 1 po q day AZITHROMYCIN 500 MG SOLR 990042 AZITHROMYCIN Inactive AMOXICILLIN 500 MG CAPS 2 po BID x 10 days AMOXICILLIN 500 MG CAPS 636270 AMOXICILLIN Inactive PENICILLIN V POTASSIUM 500 MG TABS 1 pill by mouth three times daily PENICILLIN V POTASSIUM 500 MG TABS 156114 PENICILLIN V POTASSIUM Inactive Immunizations Vaccine Administration [...] Fluvirin, Fluarix, Agriflu(>=18 yo)) Fluzone (>3 yrs.) [SQT833] Influenza, seasonal, injectable pneumococcal immunization administered Pneumovax [...] HGBA1C - Chemistry sodium, serum 131 mmol/L 385-941 9372/12/30 potassium, serum 5.0 mmol/L 3.5-5.2 chloride, serum 95 mmol/L 98-107 carbon dioxide, venous blood 26.7 mmol/L 21.0-32.0 blood glucose 112 mg/dL 65-110 calcium, serum 9.2 mg/dL 8.5-10.1 urea nitrogen, blood 12 mg/dL 7-18 creatinine, serum 1.10 mg/dL 0.60-1.30 hemoglobin A1C, blood, as % of total hemoglobin 5.8 % 4.3-6.0 Lab Report: Basic Metabolic Panel, HGBA1C, MICROALBUMIN - Chemistry sodium, serum 137 mmol/L 676-488 7000/05/19 potassium, serum 5.2 mmol/L 3.5-5.2 chloride, serum [...] microalbumin, urine 10 0-19 Lab Report: Chlamydia/GC APTIMA/07716, HIV-1/2 Agn/Dominga/43167, RPR (DX) W ... - Chemistry hepatitis B surface antigen NON-REACTIVE NON-REACTIVE Lab Report: Chlamydia/GC APTIMA/54615, HIV-1/2 Agn/Dominga/33130, RPR (DX) W ... - Lab chlamydia DNA probe NOT DETECTED NOT DETECTED Lab Report: Chlamydia/GC APTIMA/55360, HIV-1/2 Agn/Dominga/71793, RPR (DX) W ... - Microbiology Neisseria gonorrhoeae DNA probe NOT DETECTED NOT DETECTED Lab Report: Chlamydia/GC APTIMA/04800, HIV-1/2 Agn/Dominga/80975, RPR (DX) W ... - Serology rapid plasma reagin antibody titer NON-REACTIVE NON-REACTIVE Lab Report: Comp. Metabolic Panel - Chemistry sodium, serum 127 mmol/L 630-998 9367/10/27 potassium, serum 4.1 mmol/L 3.5-5.2 chloride, serum [...] CBC - Chemistry cholesterol, serum 131 mg/dL 505-229 7578/06/03 triglyceride, serum, fasting 383 mg/dL 30-200 HDL [...] mg/dL Encounters Code Encounter Date Provider Facility CPT-12601 Level 3 Est. Patient 14:46:15 CDT Vanessa Hickey MD [facility] CPT-91510 Level 3 Est. Patient 09:34:56 CDT Alina Castaneda MD [facility] CPT-21987 Level 3 Est. Patient 21:40:19 CDT Mima Erazo APRN [facility] CPT-18785 Level 3 Est. Patient 09:26:40 CDT [facility] CPT-93368 Level 3 Est. Patient 12:36:43 CDT Vanessa Hickey MD [facility] CPT-38007 Level 3 Est. Patient 12:57:49 CDT Vanessa Hickey MD [facility] CPT-22219 Level 3 Est. Patient 00:28:25 CDT Alina Castaneda MD [facility] CPT-94942 Level 2 Est. Patient 12:52:14 CDT Alina Castaneda MD PhD [facility] CPT-49743 Level 3 Est. Patient 11:51:18 NUTRITION ASSISTANT Alina Castaneda MD [facility] CPT-99241 Level 3 Est. Patient 10:09:22 NUTRITION ASSISTANT Alina Castaneda MD [facility]-40674 Level 3 Est. Patient 14:36:26 NUTRITION ASSISTANT Marvel Charles [facility]-80723 Level 3 Est. Patient 13:34:47 NUTRITION ASSISTANT Alina Castaneda MD [facility]47970 Level 3 Est. Patient 19:52:08 NUTRITION ASSISTANT Alina Castaneda MD [facility]62369 Level 3 Est. Patient 10:01:51 NUTRITION ASSISTANT Brookslashondanivia Araceli [facility]-53348 Level 3 Est. Patient 21:54:06 CDT Vanessa Hickey MD [facility]-71792 Level 3 Est. Patient 08:54:46 CDT Alina Castaneda MD [facility]-01084 Level 3 Est. Patient 09:32:11 CDT Marvel Charles [facility]-31041 Level 3 Est. Patient 12:02:49 CDT Alina Castaneda MD [facility]23001 Level 3 Est. Patient 19:17:33 CDT Alina Castaneda MD [facility]-97396 Level 3 Est. Patient 13:19:10 CDT Marvel Charles [facility]-00422 Level 3 Est. Patient 08:20:05 CDT Alina Castaneda MD [facility]-19033 Level 3 Est. Patient 15:17:18 CDT Alina Castaneda MD [facility]24658 Level 3 Est. Patient 14:25:36 NUTRITION ASSISTANT Marvel Charles [facility]-80598 Level 3 Est. Patient 10:09:15 NUTRITION ASSISTANT Marvel Thurstonestela [facility]-28726 Level 3 Est. Patient 21:28:43 CDT Alina Castaneda MD [facility]-58241 Level 3 Est. Patient 15:20:11 [facility]T [facility]-61471 Level 4 Est. Patient 19:08:12 CDT Alina Castaneda MD [facility]-54292 Level 3 Est. Patient 15:06:39 CDT Marvel Thurstonestela [facility]-48698 Level 4 Est. Patient 17:48:15 CDT Alina Castaneda MD [facility]-20874 Level 3 Est. Patient 14:53:49 CDT Alina Castaneda MD [facility]-86186 Level 3 Est. Patient 09:35:16 CDT Alina Castaneda MD [facility]-31094 Level 3 Est. Patient 12:23:22 CDT Alina Castaneda MD [facility]-53745 Level 3 Est. Patient 16:19:15 CDT Alina Castaneda MD [facility]-86467 Level 3 Est. Patient 21:39:56 NUTRITION ASSISTANT Alina Castaneda MD [facility]-64850 Level 4 Est. Patient 14:12:56 NUTRITION ASSISTANT Alina Castaneda MD [facility]-39533 Level 2 Est. Patient 15:34:57 NUTRITION ASSISTANT Alina Castaneda MD [facility]-97780 Level 3 Est. Patient 12:17:04 NUTRITION ASSISTANT Alina Castaneda MD [facility]-44713 Level 3 Est. Patient 09:18:18 NUTRITION ASSISTANT Brooksjohn Charles [facility]-24841 Level 2 Est. Patient 21:50:24 CDT Alina Castaneda MD [facility]-37886 Level 3 Est. Patient 09:17:28 CDT Marvel Charles [facility]-32044 Level 4 Est. Patient 18:54:02 CDT Alina Castaneda MD [facility]71721 Level 3 Est. Patient 10:47:10 CDT Alina Castaneda MD [facility]49357 Level 3 Est. Patient 09:22:20 CDT Marvel Charles [facility]-51292 Level 3 Est. Patient 16:39:43 CDT Marvel Charles [facility]-77392 Level 3 Est. Patient 16:05:16 CDT Alina Castaneda MD [facility]-19652 Level 3 Est. Patient 00:29:15 CDT Alina Castaneda MD [facility]01326 Level 3 Est. Patient 10:49:22 NUTRITION ASSISTANT Marvel Charles [facility]-22780 Level 3 Est. Patient 21:30:19 NUTRITION ASSISTANT Alina Castaneda MD [facility]-86411 Level 4 Est. Patient 17:04:11 NUTRITION ASSISTANT Marvel Charles [facility]-73568 Level 3 Est. Patient 15:34:11 NUTRITION ASSISTANT Marvel Charles [facility]-66339 Level 2 Est. Patient 12:51:58 NUTRITION ASSISTANT Alina Castaneda MD [facility]77694 Level 3 Est. Patient 13:20:01 NUTRITION ASSISTANT Alina Castaneda MD PhD [facility] CPT-42694 Level 3 Est. Patient 09:23:35 CDT Alina Castaneda MD PhD [facility] Procedures Code Procedure Name Date Entry Date Standard Description CPT-76586 Bladder Scan 12:36:44 CDT CPT-31816 Bladder Scan 21:54:06 CDT CPT-G0008 Administration of Influenza Virus Vaccine 13:05:26 CDT CPT-01221 Fluzone Quadrivalent Intramuscular Suspension 0.5 ML 13: 05:26 CDT CPT-68717 Administration single or combination vaccine inc oral 11 :49:51 CDT CPT-40927 Pneumovax 11:49:51 CDT CPT-81325 Ribs unilateral 2V 12:37:22 NUTRITION ASSISTANT CPT-17990 Chest 2V Frontal and Lat 17:15:26 CDT CPT-62717 Abx/Therapy Injection 18:54:02 CDT CPT-J0696 Rocephin 1000 mg (Ceftriaxone) 16:00:32 CDT CPT-37444 Chest 2V Frontal and Lat 15:26:45 CDT CPT-50231 Chest 2V Frontal and Lat 10:23:27 CDT CPT-19858 Venipuncture Draw Fee 10:11:00 CDT CPT-37614 Administration single or combination vaccine inc oral 11 :56:38 CDT CPT-75146 Influenza split virus > age 3 11:56:38 CDT CPT-35089 Venipuncture Draw Fee 08:49:54 NUTRITION ASSISTANT CPT-39399 EKG Trac and Interp 17:54:19 NUTRITION ASSISTANT
--- OUTSIDE RECORDS SUMMARY | 2018-07-02 15:31 | XMS REPORT | Clinical Summary ---
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 Erazo [employer] Benign paroxysmal positional vertigo Vertigo, benign paroxysmal position 386.11 Inactive Mima Erazo [employer] Benign paroxysmal positional vertigo High-risk sexual behavior V69.2 Active Alina Castaneda MD PhD High-risk sexual behavior Erectile dysfunction 302.72 Active Alina Castaneda MD PhD Psychosexual dysfunction with inhibited sexual excitement Constipation 564.00 Active Alina Castaneda MD PhD Constipation, unspecified Skin lesion 709.9 Active Alina Castaneda MD PhD Unspecified disorder of skin and subcutaneous tissue Malaise and fatigue 780.79 Active Cherelle Speaks [employer] Other malaise and fatigue Diarrhea 787.91 Active Cherelle Speaks [employer] Diarrhea PHARYNGITIS 462 Active Cherelle Speaks [employer] Acute pharyngitis Colitis 558.9 Active Mima Erazo [employer] Other and unspecified noninfectious gastroenteritis and colitis DIABETES, TYPE 2 ICD-250.00 Inactive Alina Castaneda MD PhD HYPERTENSION ICD-401.9 Inactive Alina Castaneda MD PhD URI ICD-465.9 Inactive Alina Castaneda MD PhD WOUND, OPEN, NOSE ICD-873.20 Inactive Alina Castaneda MD PhD FATIGUE ICD-780.79 Inactive Alina Castaneda MD PhD CHEST PAIN ICD-786.50 Inactive Alina Castaneda MD PhD UNSPECIFIED TACHYCARDIA ICD-785.0 Inactive Alina Castaneda MD PhD DIABETES MELLITUS, TYPE II, UNCONTROLLED ICD-250.02 Inactive Marvel MARROQUIN PROBLEMS RELATED TO HIGH-RISK [...] 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 Roro Castaneda MD PhD SINUSITIS, ACUTE ICD-461.9 Inactive Alina Castaneda MD PhD SPECIAL SCREENING FOR MALIGNANT NEOPLASM OF PROSTATE ICD-V76.44 Roro Castaneda MD PhD SKIN LESION ICD-709.9 Roro Castaneda MD PhD Diabetes mellitus, type II, uncontrolled ICD-250.02 Roro Castaneda MD PhD Confusion ICD-298.9 Inactive [...] mouth twice daily, for constipation DOCUSATE SODIUM 74144280212 No Longer Active Mima Erazo APRN Active FLONASE ALLERGY RELIEF 50 MCG/ACT NASAL SUSP One spray each nostril BID x 1 week then daily FLUTICASONE PROPIONATE 02867197596 Active Mimacecily Erazo APRN Active BD PEN NEEDLE MINI U/F 31G X 5 MM MISC 4 a day INSULIN PEN NEEDLE 02097126598 Active Maljohn Ziglari PHYSIOLOGIST Active AMITIZA 24 MCG ORAL CAPS Take one capsule BID for constipation LUBIPROSTONE 36514263489 Active Mimacecily Erazo APRN Active LEVEMIR FLEXTOUCH 100 UNIT/ML SC SOPN 75 units SQ each evening, for diabetes INSULIN DETEMIR 90061223896 Active Mima Erazo APRN Active TRUEPLUS LANCETS 30G MISC 3 a day LANCETS 18239551472 Active Maljohn Ziglari PHYSIOLOGIST Active TOLTERODINE TARTRATE 2 MG TABS 1 pill twice daily, for bladder TOLTERODINE TARTRATE 87668488658 No Longer Active Vanessa Hickey MD Active AMITIZA 24 MCG ORAL CAPS Take one capsule BID for constipation. LUBIPROSTONE 07924788267 No Longer Active Vanessa Hickey MD Active LOMOTIL 2.5-0.025 MG ORAL TABS take 1-2 tabs PO after each stool, no more than 8 in 24 hours DIPHENOXYLATE-ATROPINE 84541146504 Active Grace Nascimento RMA Active FLUVOXAMINE MALEATE 100 MG ORAL TABS take one tab every AM et HS, and take 1/ 2 tab at noon FLUVOXAMINE MALEATE 18229731378 Active Gracekailee Nascimento RMA Active METOPROLOL SUCCINATE 100 MG [id number] 1 by mouth daily for blood pressure METOPROLOL SUCCINATE 15196323460 No Longer Active Grace Nascimento RMA Active METFORMIN HCL ER 500 MG [id number] Take three tablets by mouth everyday METFORMIN HCL 78578233941 No Longer Active Grace Nascimento RMA Active LOVAZA 1 GM CAPS 4 daily (for triglycerides) OMEGA-3- ACID ETHYL ESTERS 07805617602 No Longer Active Grace Nascimento RMA Active TRAZODONE HCL 100 MG ORAL TABS 1 tab by mouth for sleep TRAZODONE HCL 61628156691 No Longer Active Grace Nascimento RMA Active NOVOFINE 32G X 6 MM MISC use one four times per day INSULIN PEN NEEDLE 85255299134 No Longer Active Grace aNscimento RMA Active BACTROBAN 2 % CREAM Apply to affected area BID for up to 10 days MUPIROCIN CALCIUM 28268933731 No Longer Active Grace Nascimento RMA Active ZOFRAN 4 MG TABS 1 po q4hr PRN Nausea ONDANSETRON HCL 68351221377 Active Salina Han RMA Active KEFLEX 500 MG CAP 1 po BID x 7 days CEPHALEXIN 07709856611 No Longer Active Cherelle Avila APRN Active FLUVOXAMINE MALEATE 100 MG TABS Take one (1) tablet by mouth am, 1/2 at noon FLUVOXAMINE MALEATE 77218488142 No Longer Active Mima Erazo [employer] Active CORICIDIN HBP CONGESTION/COUGH 10-200 MG ORAL CAPS Take as directed on box as needed for cold/flu symptoms DEXTROMETHORPHAN-GUAIFENESIN 17462764703 Active Cherelle Speaks STE[employer]TER HELPER Active OMEGA-3 300 MG ORAL CAPS 4 caps by mouth daily OMEGA-3 FATTY ACIDS 91532268577 Active Mima Erazo [employer]TER HELPER Active FLUVOXAMINE MALEATE 100 MG ORAL TABS Take 1/2 tab at noon FLUVOXAMINE MALEATE 10172208243 No Longer Active Cherelle Speaks STEAM FITTER HELPER Active [facility] LUBRICANT EYE DROPS 0.4-0.3 % OPHTH SOLN POLYETHYL GLYCOL-PROPYL GLYCOL 05546371591 Active Mima Erazo [employer]TER HELPER Active CLONAZEPAM 1 MG TABS 1/2 pill by mouth three times daily CLONAZEPAM 88357205560 Active Mason Loredo MD Active MIRALAX POWD 17g by mouth daily, for constipation POLYETHYLENE GLYCOL 3350 90230641307 Active Alina Castaneda MD PhD Active HYDROCODONE-ACETAMINOPHEN 5-325 MG TABS 2 tabs by mouth three times daily for pain HYDROCODONE-ACETAMINOPHEN 67231904323 Active Mima Erazo [employer]TER HELPER Active HUMALOG KWIKPEN 100 UNIT/ML SC SOPN 20 units with breakfast, 10 units with lunch, 10 units with dinner, for diabetes INSULIN LISPRO (HUMAN ) 50784937679 Active Alina Castaneda MD PhD Active LATUDA 120 MG ORAL TABS 1 pill by mouth nightly LURASIDONE HCL 60886960397 Active Alina Castaneda MD PhD Active TRUETEST TEST STRP check blood sugars 3x/day GLUCOSE BLOOD 88087317083 Active Marvel Charles PHYSIOLOGIST Active ACCU-CHEK ROSA UZMA Use device to check blood sugars BLOOD GLUCOSE MONITORING SUPPL 56913442280 No Longer Active Marvel Charles PHYSIOLOGIST Active ACCU-CHEK ROSA INVITR STRP use strips with device to check blood sugars 3 times daily GLUCOSE BLOOD 91883123097 No Longer Active Marvel MARROQUIN Active VERAPAMIL HCL ER 180 MG ORAL CR-TABS 1 pill by mouth twice daily, for migraine prevention VERAPAMIL HCL 86932952014 Active CRYSTAL Rodrigues Active CYCLOBENZAPRINE HCL 10 MG TABS 1 tablet by mouth three times daily, scheduled CYCLOBENZAPRINE HCL 79645151848 No Longer Active Alina Castaneda MD PhD Active HUMALOG 100 UNIT/ML SOLN Take 20 units with breakfast, 10u with lunch and suppetr. INSULIN LISPRO (HUMAN) 76798675243 No Longer Active Alina Castaneda MD PhD Active TRUETEST TEST STRP check sugars 4x/day GLUCOSE BLOOD 06969679021 No Longer Active Alina Castaneda MD PhD Active MORPHINE SULFATE 30 MG TABS 1 pill by mouth twice daily, for pain MORPHINE SULFATE 39431808614 Active Mason Loredo MD Active ACYCLOVIR 400 MG ORAL TABS 1 pill three times daily x 5 days, for cold sore outbreak ACYCLOVIR 26379149158 No Longer Active Alina Castaneda MD PhD Active PENICILLIN V POTASSIUM 500 MG TABS 1 pill by mouth three times daily PENICILLIN V POTASSIUM 77274289047 No Longer Active Alina Castaneda MD PhD Active UROXATRAL 10 MG [id number] Take 1 tablet by mouth daily ALFUZOSIN HCL 64109175503 No Longer Active Alina Castaneda MD PhD Active THIOTHIXENE 5 MG CAPS by mouth twice a day THIOTHIXENE 57557826658 No Longer Active Alina Castaneda MD PhD Active ZYPREXA 7.5 MG TABS 1 at HS OLANZAPINE 69716065887 No Longer Active Alina Castaneda MD PhD Active BD INSULIN SYRINGE 28G X 1/2" 1 ML MISC 1 four times per day INSULIN SYRINGE-NEEDLE U-100 18370275099 Active Marvel MARROQUIN Active DETROL LA 4 MG [id number] Take 1 tablet by mouth daily TOLTERODINE TARTRATE 11810344349 No Longer Active Alina Castaneda MD PhD Active TERESE CONTOUR TEST STRP monitor blood sugars 3x/day GLUCOSE BLOOD 00236687743 No Longer Active Alina Castaneda MD PhD Active EQL TRUETEST TEST STRP Test blood sugar TID GLUCOSE BLOOD 66925704974 No Longer Active Alina Castaneda MD PhD Active FLUTICASONE PROPIONATE 50 MCG/ACT SUSP 2 sprays each nostril qDay x 30 days FLUTICASONE PROPIONATE 84021028763 No Longer Active Alina Castaneda MD PhD Active IBUPROFEN 200 MG TABS 1 Q 6 hr. PRN IBUPROFEN 10824970227 No Longer Active Alina Castaneda MD PhD Active NIACIN ER 500 MG CR-TABS 4 qHS (for triglycerides) NIACIN 86077074408 No Longer Active Alina Castaneda MD PhD Active ALFUZOSIN HCL ER 10 MG [id number] 1 tablet daily ALFUZOSIN HCL 18368347148 Active CRYSTAL Rodrigues Active SAPHRIS 5 MG SUBL by mouth twice a day ASENAPINE MALEATE 30498697645 No Longer Active Marvel MARROQUIN Active ACETAMINOPHEN 500 MG TABS 2 Q 6 hr. PRN ACETAMINOPHEN 59063206818 No Longer Active Marvel MARROQUIN Active ORPHENADRINE CITRATE ER 100 MG [id number] 1 every 12 hr. as needed ORPHENADRINE CITRATE 26371659298 No Longer Active Alina Castaneda MD PhD Active NIACIN CR 500 MG CR-TABS 2 qHS NIACIN 13133889127 No Longer Active Alina Castaneda MD PhD Active AMOXICILLIN 500 MG CAPS 2 po BID x 10 days AMOXICILLIN 67979920473 No Longer Active Alina Castaneda MD PhD Active HYDROCODONE-ACETAMINOPHEN 7.5-325 MG TABS 1 four times a day as needed for pain HYDROCODONE-ACETAMINOPHEN 03596717312 No Longer Active Alina Castaneda MD PhD Active DOXEPIN HCL 10 MG CAPS Take 1 tablet by mouth daily DOXEPIN HCL 91072979548 No Longer Active Salina Han A Active NAVANE 10 MG CAPS 1/2 tablet twice a day THIOTHIXENE No Longer Active Salina Han A Active CYCLOBENZAPRINE HCL 10 MG TABS 1/2 tablet by mouth every 8 hours as needed for muscle spasms CYCLOBENZAPRINE HCL 93598349447 No Longer Active Alina Castaneda MD PhD Active BACTROBAN 2 % CREAM apply to ear and nose twice daily MUPIROCIN CALCIUM 50261221048 No Longer Active Alina Castaneda MD PhD Active HYDROCODONE-ACETAMINOPHEN 5-325 MG TABS take one tablet by mouth every four hours as needed for pain HYDROCODONE-ACETAMINOPHEN 74760659890 No Longer Active Alina Castaneda MD PhD Active ZOLPIDEM TARTRATE 10 MG TABS take at bedtime ZOLPIDEM TARTRATE 08414659357 Active Alina Castaneda MD PhD Active ZYPREXA 5 MG TABS take one tablet by mouth every evening OLANZAPINE 99054337298 No Longer Active Alina Castaneda MD PhD Active ALBUTEROL SULFATE 0.083 % NEBU SOLN one vial per nebulizer TID and PRN cough/ soa ALBUTEROL SULFATE 82571487389 No Longer Active Alina Castaneda MD PhD Active GUAIFENESIN 600 MG [id number]-PRB 1 tablet by mouth twice daily if needed for cough GUAIFENESIN 60468708040 No Longer Active Marvel MARROQUIN Active AZITHROMYCIN 500 MG SOLR 1 po q day AZITHROMYCIN 20232348209 No Longer Active Alina Castaneda MD PhD Active PROMETHAZINE-CODEINE 6.25-10 MG/5ML SYRP 1 tsp po q 6 hours prn cough PROMETHAZINE-CODEINE 76892415153 No Longer Active Alina Castaneda MD PhD Active CEFDINIR 300 MG CAPS by mouth twice a day CEFDINIR 62701016184 No Longer Active Alina Castaneda MD PhD Active METFORMIN HCL 500 MG [id number]-UCA Take 3 tablets by mouth everyday METFORMIN HCL 48299430267 No Longer Active Alina Castaneda MD PhD Active LEVEMIR 100 UNIT/ML SOLN 90 units SQ qHS INSULIN DETEMIR 72207787827 No Longer Active Marvel MARROQUIN Active TOPROL XL 100 MG [id number] 1 @ HS METOPROLOL SUCCINATE 63978917198 No Longer Active Marvel MARROQUIN Active ALLOPURINOL 300 MG TABS Take one by mouth daily ALLOPURINOL 72802568393 Active Mima Erazo STEAM FITTER HELPER Active ZYPREXA 10 MG TABS Take one by mouth daily OLANZAPINE 30921139603 No Longer Active Alina Castaneda MD PhD Active NOVOLOG 100 UNIT/ML SOLN 40 units with every meal INSULIN ASPART 72174801386 No Longer Active Alina Castaneda MD PhD Active VERAPAMIL HCL CR 120 MG TAB CR 1 qPM VERAPAMIL HCL 35548988793 No Longer Active Salina ROJAS Active ZYPREXA 15 MG TABS Take 1 tablet by mouth daily OLANZAPINE 43454051517 No Longer Active Marvel MARROQUIN Active LISINOPRIL 20 MG TABS 1 BID LISINOPRIL 22917549587 Active Alina Castaneda MD PhD Active ALBUTEROL SULFATE (2.5 MG/3ML) 0.083% NEBU 1 neb tid and prn cough ALBUTEROL SULFATE 41819440992 No Longer Active Alina Castaneda MD PhD Active TRAVATAN Z 0.004 % SOLN 1 gtt each eye daily TRAVOPROST 24457436775 Active CRYSTAL Suarez Active LANTUS 100 UNIT/ML SOLN 60 units sq q hs INSULIN GLARGINE 70709178609 No Longer Active CRYSTAL Suarez Active ALBUTEROL SULFATE (2.5 MG/3ML) 0.083% NEBU 1 neb tid and prn cough ALBUTEROL SULFATE (2.5 MG/3ML) 0.083% NEBU 928957 ALBUTEROL SULFATE Inactive ZYPREXA 15 MG TABS Take 1 tablet by mouth daily ZYPREXA 15 MG TABS 753017 OLANZAPINE Inactive VERAPAMIL HCL CR 120 MG TAB CR 1 qPM VERAPAMIL HCL CR 120 MG TAB CR VERAPAMIL HCL Inactive ZYPREXA 10 MG TABS Take one by mouth daily ZYPREXA 10 MG TABS 146856 OLANZAPINE Inactive TOPROL XL 100 MG [id number] 1 @ HS TOPROL XL 100 MG [id number]-MNK METOPROLOL SUCCINATE Inactive LEVEMIR 100 UNIT/ML SOLN 90 units SQ qHS LEVEMIR 100 UNIT/ML SOLN INSULIN DETEMIR Inactive PROMETHAZINE-CODEINE 6.25-10 MG/5ML SYRP 1 tsp po q 6 hours prn cough PROMETHAZINE-CODEINE 6.25-10 MG/5ML SYRP 646491 PROMETHAZINE- CODEINE Inactive GUAIFENESIN 600 MG [id number] 1 tablet by mouth twice daily if needed for cough GUAIFENESIN 600 MG [id number]-AYG GUAIFENESIN Inactive ALBUTEROL SULFATE 0.083 % NEBU SOLN one vial per nebulizer TID and PRN cough/ soa ALBUTEROL SULFATE 0.083 % NEBU SOLN 492299 ALBUTEROL SULFATE Inactive ZYPREXA 5 MG TABS take one tablet by mouth every evening ZYPREXA 5 MG TABS 426478 OLANZAPINE Inactive HYDROCODONE-ACETAMINOPHEN 5-325 MG TABS take one tablet by mouth every four hours as needed for pain HYDROCODONE-ACETAMINOPHEN 5-325 MG TABS 146249 HYDROCODONE-ACETAMINOPHEN Inactive BACTROBAN 2 % CREAM apply to ear and nose twice daily BACTROBAN 2 % CREAM 837723 MUPIROCIN CALCIUM Inactive CYCLOBENZAPRINE HCL 10 MG TABS 1/2 tablet by mouth every 8 hours as needed for muscle spasms CYCLOBENZAPRINE HCL 10 MG TABS 336644 CYCLOBENZAPRINE HCL Inactive NAVANE 10 MG CAPS 1/2 tablet twice a day NAVANE 10 MG CAPS THIOTHIXENE Inactive DOXEPIN HCL 10 MG CAPS Take 1 tablet by mouth daily DOXEPIN HCL 10 MG CAPS 2476289 DOXEPIN HCL Inactive HYDROCODONE-ACETAMINOPHEN 7.5-325 MG TABS 1 four times a day as needed for pain HYDROCODONE-ACETAMINOPHEN 7.5-325 MG TABS 157489 HYDROCODONE-ACETAMINOPHEN Inactive NIACIN CR 500 MG CR-TABS 2 qHS NIACIN CR 500 MG CR- TABS NIACIN Inactive ORPHENADRINE CITRATE ER 100 MG [id number] 1 every 12 hr. as needed ORPHENADRINE CITRATE ER 100 MG [id number] ORPHENADRINE CITRATE Inactive ACETAMINOPHEN 500 MG TABS 2 Q 6 hr. PRN ACETAMINOPHEN 500 MG TABS 741954 ACETAMINOPHEN Inactive SAPHRIS 5 MG SUBL by mouth twice a day SAPHRIS 5 MG SUBL ASENAPINE MALEATE Inactive NIACIN ER 500 MG CR-TABS 4 qHS (for triglycerides) NIACIN ER 500 MG CR-TABS NIACIN Inactive IBUPROFEN 200 MG TABS 1 Q 6 hr. PRN IBUPROFEN 200 MG TABS 552300 IBUPROFEN Inactive FLUTICASONE PROPIONATE 50 MCG/ACT SUSP 2 sprays each nostril qDay x 30 days FLUTICASONE PROPIONATE 50 MCG/ACT SUSP 610611 FLUTICASONE PROPIONATE Inactive EQL TRUETEST TEST STRP Test blood sugar TID EQL TRUETEST TEST STRP GLUCOSE BLOOD Inactive TERESE CONTOUR TEST STRP monitor blood sugars 3x/day TERESE CONTOUR TEST STRP GLUCOSE BLOOD Inactive DETROL LA 4 MG [id number] Take 1 tablet by mouth daily DETROL LA 4 MG [id number]-OHS TOLTERODINE TARTRATE Inactive ZYPREXA 7.5 MG TABS 1 at HS ZYPREXA 7.5 MG TABS 294329 OLANZAPINE Inactive THIOTHIXENE 5 MG CAPS by mouth twice a day THIOTHIXENE 5 MG CAPS 405298 THIOTHIXENE Inactive UROXATRAL 10 MG [id number]-KDF Take 1 tablet by mouth daily UROXATRAL 10 MG [id number]-EOK ALFUZOSIN HCL Inactive ACYCLOVIR 400 MG ORAL TABS 1 pill three times daily x 5 days, for cold sore outbreak ACYCLOVIR 400 MG ORAL TABS 115247 ACYCLOVIR Inactive TRUETEST TEST STRP check sugars 4x/day TRUETEST TEST STRP GLUCOSE BLOOD Inactive HUMALOG 100 UNIT/ML SOLN Take 20 units with breakfast, 10u with lunch and suppetr. HUMALOG 100 UNIT/ML SOLN INSULIN LISPRO ( HUMAN) Inactive CYCLOBENZAPRINE HCL 10 MG TABS 1 tablet by mouth three times daily, scheduled CYCLOBENZAPRINE HCL 10 MG TABS 815063 CYCLOBENZAPRINE HCL Inactive ACCU-CHEK ROSA INVITR STRP use strips with device to check blood sugars 3 times daily ACCU-CHEK ROSA INVITR STRP GLUCOSE BLOOD Inactive ACCU-CHEK ROSA UZMA Use device to check blood sugars ACCU-CHEK ROSA UZMA BLOOD GLUCOSE MONITORING SUPPL Inactive FLUVOXAMINE MALEATE 100 MG ORAL TABS Take 1/2 tab at noon FLUVOXAMINE MALEATE 100 MG ORAL TABS 992359 FLUVOXAMINE MALEATE Inactive FLUVOXAMINE MALEATE 100 MG TABS Take one (1) tablet by mouth am, 1/2 at noon FLUVOXAMINE MALEATE 100 MG TABS 946470 FLUVOXAMINE MALEATE Inactive BACTROBAN 2 % CREAM Apply to affected area BID for up to 10 days BACTROBAN 2 % CREAM 217787 MUPIROCIN CALCIUM Inactive NOVOFINE 32G X 6 MM MISC use one four times per day NOVOFINE 32G X 6 MM MISC INSULIN PEN NEEDLE Inactive TRAZODONE HCL 100 MG ORAL TABS 1 tab by mouth for sleep TRAZODONE HCL 100 MG ORAL TABS 545190 TRAZODONE HCL Inactive LOVAZA 1 GM CAPS 4 daily (for triglycerides) LOVAZA 1 GM CAPS 980607 [id number]-[id number] ETHYL ESTERS Inactive METFORMIN HCL ER 500 MG SG19H-HQH Take three tablets by mouth everyday METFORMIN HCL ER 500 MG GZ44V-JBM METFORMIN HCL Inactive METOPROLOL SUCCINATE 100 MG [id number]-ARA 1 by mouth daily for blood pressure METOPROLOL SUCCINATE 100 MG HU51E-GWI METOPROLOL SUCCINATE Inactive AMITIZA 24 MCG ORAL CAPS Take one capsule BID for constipation. AMITIZA 24 MCG ORAL CAPS LUBIPROSTONE Inactive TOLTERODINE TARTRATE 2 MG TABS 1 pill twice daily, for bladder TOLTERODINE TARTRATE 2 MG TABS 179646 TOLTERODINE TARTRATE Inactive COLACE 100 MG CAPS 1 pill by mouth twice daily, for constipation COLACE 100 MG CAPS 5829138 DOCUSATE SODIUM Inactive CEFDINIR 300 MG CAPS by mouth twice a day CEFDINIR 300 MG CAPS 153195 CEFDINIR Inactive AZITHROMYCIN 500 MG SOLR 1 po q day AZITHROMYCIN 500 MG SOLR 40740128337 AZITHROMYCIN Inactive AMOXICILLIN 500 MG CAPS 2 po BID x 10 days AMOXICILLIN 500 MG CAPS 457377 AMOXICILLIN Inactive PENICILLIN V POTASSIUM 500 MG TABS 1 pill by mouth three times daily PENICILLIN V POTASSIUM 500 MG TABS 706787 PENICILLIN V POTASSIUM Inactive KEFLEX 500 MG CAP 1 po BID x 7 days KEFLEX 500 MG CAP 926519 CEPHALEXIN Inactive Immunizations Vaccine Administration Date Value [...] Fluvirin, Fluarix, Agriflu(>=18 yo)) Fluzone (>3 yrs.) [[id number]] Influenza, seasonal, injectable pneumococcal immunization administered Pneumovax [...] Panel - Chemistry sodium, serum 137 mmol/L 710-693 7469/10/12 potassium, serum 4.8 mmol/L 3.5-5.2 chloride, serum 102 mmol/L 98-107 carbon dioxide, venous blood 27.6 mmol/L 21.0-32.0 blood glucose 168 mg/dL 65-110 calcium, serum 9.0 mg/dL 8.5-10.1 urea nitrogen, blood 15 mg/dL 7-18 creatinine, serum 1.04 mg/dL 0.55-1.30 sodium, serum 138 mmol/L 315-138 1338/11/11 potassium, serum 4.7 mmol/L 3.5-5.2 chloride, serum [...] % 11.6-14.8 platelet count 240 10^3/MM^3 10*3/mm3 660-878 0614/11/11 leukocyte count, blood 9.6 10^3/MM^3 10*3/mm3 4.6-10.2 [...] Acid - Chemistry cholesterol, serum 187 mg/dL 045-459 1724/06/14 triglyceride, serum, fasting 246 mg/dL 30-200 HDL [...] negative Encounters Code Encounter Date Provider Facility CPT-68161 Level 3 Est. Patient 16:27:51 CDT Mima Erazo [facility]-91835 Level 3 Est. Patient 14:39:[address] MAGISTRATE Vanessa Hickey MD [facility]-00870 Level 2 Est. Patient 18:43:[address] [facility] CPT-02846 Level 3 Est. Patient 16:22:09 CDT Cherelle Avila [facility] CPT-37639 Level 4 Est. Patient 17:55:[address] [facility] CPT-18676 Level 2 Est. Patient 17:13:21 CDT Alina Castaneda MD [facility]-20789 Level 3 Est. Patient 14:46:15 CDT Vanessa Hickey MD [facility]-23340 Level 3 Est. Patient 09:34:56 CDT Alina Castaneda MD [facility]78435 Level 3 Est. Patient 21:40:[address] [facility] CPT-06073 Level 3 Est. Patient 09:26:40 CDT Marvel [facility]-81056 Level 3 Est. Patient 12:36:43 CDT Vanessa Hickey MD [facility]-66786 Level 3 Est. Patient 12:57:49 CDT Vanessa Hickey MD [facility]-62377 Level 3 Est. Patient 00:28:25 CDT Alina Castaneda MD [facility]49958 Level 2 Est. Patient 12:52:14 CDT Alina Castaneda MD [facility]18214 Level 3 Est. Patient 11:51:[address] MAGISTRATE Alina Castaneda MD [facility]-51310 Level 3 Est. Patient 10:09:[address] MAGISTRATE Alina Castaneda MD [facility]-50713 Level 3 Est. Patient 14:36:[address] MAGISTRATE Marvel [facility]-48798 Level 3 Est. Patient 13:34:[address] MAGISTRATE Alina Castaneda MD [facility]57681 Level 3 Est. Patient 19:52:[address] MAGISTRATE Alina Castaneda MD [facility]79933 Level 3 Est. Patient 10:01:[address] MAGISTRATE Marvel [facility]-15649 Level 3 Est. Patient 21:54:06 CDT Vanessa Hickey MD [facility]-74789 Level 3 Est. Patient 08:54:46 CDT Alina Castaneda MD [facility]51961 Level 3 Est. Patient 09:32:11 CDT Marvel [facility]-38773 Level 3 Est. Patient 12:02:49 CDT Alina Castaneda MD [facility]72456 Level 3 Est. Patient 19:17:33 CDT Alina Castaneda MD [facility]-34977 Level 3 Est. Patient 13:19:10 CDT Marvel [facility]-65828 Level 3 Est. Patient 08:20:05 CDT Alina Castaneda MD [facility]06355 Level 3 Est. Patient 15:17:18 CDT Alina Castaneda MD [facility]69123 Level 3 Est. Patient 14:25:[address] MAGISTRATE Marvel Charles [facility]63058 Level 3 Est. Patient 10:09:[address] MAGISTRATE Marvel Charles [facility] CPT-01409 Level 3 Est. Patient 21:28:43 CDT Alina Castaneda MD [facility] CPT-91291 Level 3 Est. Patient 15:20:11 CDT Marvel Thurstonestela [facility] CPT-06156 Level 4 Est. Patient 19:08:12 CDT Alina Castaneda MD [facility] CPT-16638 Level 3 Est. Patient 15:06:39 CDT Marvel Gurdeepajayestela [facility] CPT-85522 Level 4 Est. Patient 17:48:15 CDT Alina Castaneda MD [facility] CPT-79438 Level 3 Est. Patient 14:53:49 CDT Alina Castaneda MD [facility] CPT-36827 Level 3 Est. Patient 09:35:16 CDT Alina Castaneda MD [facility] CPT-18725 Level 3 Est. Patient 12:23:22 CDT Alina Castaneda MD [facility] CPT-73519 Level 3 Est. Patient 16:19:15 CDT Alina Castaneda MD [facility] CPT-23748 Level 3 Est. Patient 21:39:[address] MAGISTRATE Alina Castaneda MD [facility] CPT-12314 Level 4 Est. Patient 14:12:[address] MAGISTRATE Alina Castaneda MD [facility]-35827 Level 2 Est. Patient 15:34:[address] MAGISTRATE Alina Castaneda MD [facility] CPT-14657 Level 3 Est. Patient 12:17:[address] MAGISTRATE Alnia Castaneda MD [facility]-69595 Level 3 Est. Patient 09:18:[address] MAGISTRATE Marvel [facility]-08252 Level 2 Est. Patient 21:50:24 CDT Alina Castaneda MD [facility]05434 Level 3 Est. Patient 09:17:28 CDT Brooksjohn [facility]-44427 Level 4 Est. Patient 18:54:02 CDT Alina Castaneda MD [facility]61221 Level 3 Est. Patient 10:47:10 CDT Alina Castaneda MD [facility]01443 Level 3 Est. Patient 09:22:20 CDT Brookslashondanivia [facility]-52770 Level 3 Est. Patient 16:39:43 CDT Brooksjohn [facility]-80484 Level 3 Est. Patient 16:05:16 CDT Alina Castaneda MD [facility]29667 Level 3 Est. Patient 00:29:15 CDT Alina Castaneda MD [id number] Level 3 Est. Patient 10:49:[address] MAGISTRATE [facility]-[id number] Level 3 Est. Patient 21:30:[address] MAGISTRATE Alina Castaneda MD [facility]-[id number] Level 4 Est. Patient 17:04:[address] MAGISTRATE Marvel [facility]55476 Level 3 Est. Patient 15:34:[address] MAGISTRATE [facility]-40306 Level 2 Est. Patient 12:51:[address] MAGISTRATE Alina Castaneda MD PhD [facility] CPT-29036 Level 3 Est. Patient 13:20:[address] MAGISTRATE Alina Castaneda MD PhD [facility] CPT-16559 Level 3 Est. Patient 09:23:35 CDT Alina Castaneda MD PhD [facility] Procedures Code Procedure Name Date Entry Date Standard Description CPT-96559 Bladder Scan 14:39:[address] MAGISTRATE CPT-TCMM Transitional Care Mgmt-Moderate 10:30:[address] MAGISTRATE CPT-30447 Bladder Scan 12:36:44 CDT CPT-36604 Bladder Scan 21:54:06 CDT CPT-G0008 Administration of Influenza Virus Vaccine 13:05:26 CDT CPT-00492 Fluzone Quadrivalent Intramuscular Suspension 0.5 ML 13: 05:26 CDT CPT-81661 Administration single or combination vaccine inc oral 11 :49:51 CDT CPT-80699 Pneumovax 11:49:51 CDT CPT-75940 Ribs unilateral 2V 12:37:[address] MAGISTRATE CPT-05363 Chest 2V Frontal and Lat 17:15:26 CDT CPT-49840 Abx/Therapy Injection 18:54:02 CDT CPT-J0696 Rocephin 1000 mg (Ceftriaxone) 16:00:32 CDT CPT-30333 Chest 2V Frontal and Lat 15:26:45 CDT CPT-96803 Chest 2V Frontal and Lat 10:23:27 CDT CPT-40050 Venipuncture Draw Fee 10:11:00 CDT CPT-11323 Administration single or combination vaccine inc oral 11 :56:38 CDT CPT-69313 Influenza split virus > age 3 11:56:38 CDT CPT-70755 Venipuncture Draw Fee 08:49:[address] MAGISTRATE CPT-13509 EKG Trac and Interp 17:54:[address] MAGISTRATE
--- OUTSIDE RECORDS SUMMARY | 2018-07-02 15:34 | XMS REPORT | Clinical Summary ---
Author Author Admin, TERELL Organization [employer] Address Unknown Phone Unavailable Allergies, Adverse Reactions, 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 Erazo SCLEROSCOPE TESTER Benign paroxysmal positional vertigo Vertigo, benign paroxysmal position 386.11 Inactive Mima Erazo SCLEROSCOPE TESTER Benign paroxysmal positional vertigo High-risk sexual behavior V69.2 Active Alina Castaneda MD PhD High-risk sexual behavior Erectile dysfunction 302.72 Active Alina Castaneda MD PhD Psychosexual dysfunction with inhibited sexual excitement Constipation 564.00 Active Alina Castaneda MD PhD Constipation, unspecified Skin lesion 709.9 Active Alina Castaneda MD PhD Unspecified disorder of skin and subcutaneous tissue Malaise and fatigue 780.79 Active Cherelle Speaks SCLEROSCOPE TESTER Other malaise and fatigue Diarrhea 787.91 Active Cherelle Speaks SCLEROSCOPE TESTER Diarrhea PHARYNGITIS 462 Active Cherelle Speaks SCLEROSCOPE TESTER Acute pharyngitis Colitis 558.9 Active Mima Erazo SCLEROSCOPE TESTER Other and unspecified noninfectious gastroenteritis and [...] II, uncontrolled ICD-250.02 Roro Castaneda MD PhD FH STROKE ICD-V17.1 Inactive Marvel MARROQUIN ABNORMAL HEART RHYTHMS ICD-427.9 Roro Castaneda MD PhD Dizziness ICD-780.4 Inactive Alina Castaneda MD PhD Confusion ICD-298.9 Inactive Alina Castaneda MD PhD Open wound of tongue and floor of mouth, uncomplicated ICD-873.64 Inactive Alina Castaneda MD PhD Chest pain, atypical ICD-786.59 Inactive Alina Castaneda MD PhD Chest pain, atypical ICD-786.59 Inactive Alina Castaneda MD PhD Hypoglycemia ICD-251.2 Inactive Alina Castaneda MD PhD SPECIAL SCREENING FOR MALIGNANT NEOPLASM OF PROSTATE ICD-V76.44 Inactive Alina Castaneda MD PhD Medication List Medication Instructions Start Date Stop Date Generic Name NDC Status Provider Patient Instruction LATUDA 60 MG ORAL TABS Take one by mouth daily LURASIDONE HCL 01642317398 Active [facility] Active MORPHINE SULFATE 30 MG ORAL TABS by mouth twice a day MORPHINE SULFATE 35762015156 Active [facility] Active TRAZODONE HCL 100 MG TABS 1 every night to prevent headaches TRAZODONE HCL 31942612699 Active Gabrielle Madl CHEMICAL COMPOUNDER HELPER Active LATUDA 60 MG ORAL TABS 1 tab daily LURASIDONE HCL 18556889828 Active Gabrielle Marquez CHEMICAL COMPOUNDER HELPER Active CLONAZEPAM 1 MG TABS 1 pill by mouth three times daily CLONAZEPAM 25105040156 Active Gabrielle Madl CHEMICAL COMPOUNDER HELPER Active [facility] MILK OF MAGNESIA 400 MG/5ML ORAL SUSP 30ml by mouth bid prn MAGNESIUM HYDROXIDE 17906347830 Active Mason Loredo MD Active TYLENOL 8 HOUR 650 MG ORAL CR-TABS 1 tab QID prn ACETAMINOPHEN 15009491121 Active Mason Loredo MD Active MYLANTA GAS RELIEF MAXIMUM STR 125 MG ORAL CAPS 30cc every 4 hours prn 12/01 SIMETHICONE 72139780893 Active Mason Loredo MD Active IMODIUM A-D 2 MG ORAL TABS 1 tab QID as needed LOPERAMIDE HCL 14785337194 Active Mason Loredo MD Active FLUVOXAMINE MALEATE 50 MG ORAL TABS 1 tab by mouth daily FLUVOXAMINE MALEATE 59663973761 Active Mason Loredo MD Active TRAVATAN Z 0.004 % SOLN 1 gtt each eye daily TRAVOPROST 13275984637 No Longer Active Mason Loredo MD Active LISINOPRIL 20 MG TABS 1 BID LISINOPRIL 85639691108 No Longer Active Mason Loredo MD Active LEVEMIR FLEXTOUCH 100 UNIT/ML SC SOPN 60 units SQ each evening, for diabetes INSULIN DETEMIR 52194093816 Active Mason Loredo MD Active ZOLPIDEM TARTRATE 10 MG TABS take at bedtime ZOLPIDEM TARTRATE 29841998866 No Longer Active Mason Loredo MD Active HYDROCODONE-ACETAMINOPHEN 5-325 MG TABS 2 tabs by mouth three times daily for pain HYDROCODONE-ACETAMINOPHEN 92356979075 No Longer Active Mason Loredo MD Active ZOFRAN 4 MG TABS 1 po q4hr PRN Nausea ONDANSETRON HCL 12856576086 No Longer Active Mason Loredo MD Active LOMOTIL 2.5-0.025 MG ORAL TABS take 1-2 tabs PO after each stool, no more than 8 in 24 hours DIPHENOXYLATE-ATROPINE 25813686356 No Longer Active Mason Loredo MD Active COLACE 100 MG CAPS 1 pill by mouth twice daily, for constipation DOCUSATE SODIUM 40051959242 No Longer Active Mima Erazo APRN Active FLONASE ALLERGY RELIEF 50 MCG/ACT NASAL SUSP One spray each nostril BID x 1 week then daily FLUTICASONE PROPIONATE 69412768542 Active Mima Erazo APRN Active BD PEN NEEDLE MINI U/F 31G X 5 MM MISC 4 a day INSULIN PEN NEEDLE 03772898176 Active Maliheh Ziglari MERCHANDISE STOCKER Active AMITIZA 24 MCG ORAL CAPS Take one capsule BID for constipation LUBIPROSTONE 75200210003 Active Mima Erazo APRN Active TRUEPLUS LANCETS 30G MISC 3 a day LANCETS 01254059905 Active Marvel Mackenzieglari MERCHANDISE STOCKER Active TOLTERODINE TARTRATE 2 MG TABS 1 pill twice daily, for bladder TOLTERODINE TARTRATE 95976691813 No Longer Active Vanessa Hickey MD Active AMITIZA 24 MCG ORAL CAPS Take one capsule BID for constipation. LUBIPROSTONE 16403220204 No Longer Active Vanessa Hickey MD Active FLUVOXAMINE MALEATE 100 MG ORAL TABS take one tab every AM et HS, and take 1/ 2 tab at noon FLUVOXAMINE MALEATE 76585943888 Active Grace Azam RMA Active METOPROLOL SUCCINATE 100 MG [id number]-[id number] 1 by mouth daily for blood pressure METOPROLOL SUCCINATE 98361195318 No Longer Active Grace Azam RMA Active METFORMIN HCL ER 500 MG [id number] Take three tablets by mouth everyday METFORMIN HCL 31661581175 No Longer Active Grace Azam RMA Active LOVAZA 1 GM CAPS 4 daily (for triglycerides) OMEGA-3- ACID ETHYL ESTERS 15423711609 No Longer Active Grace Azam RMA Active TRAZODONE HCL 100 MG ORAL TABS 1 tab by mouth for sleep TRAZODONE HCL 99897527037 No Longer Active Grace Azam RMA Active NOVOFINE 32G X 6 MM MISC use one four times per day INSULIN PEN NEEDLE 09300326351 No Longer Active Grace Azam RMA Active BACTROBAN 2 % CREAM Apply to affected area BID for up to 10 days MUPIROCIN CALCIUM 56101159247 No Longer Active Grace Azam RMA Active KEFLEX 500 MG CAP 1 po BID x 7 days CEPHALEXIN 34507304102 No Longer Active Cherelle Speaks SCLEROSCOPE TESTER Active FLUVOXAMINE MALEATE 100 MG TABS Take one (1) tablet by mouth am, 1/2 at noon FLUVOXAMINE MALEATE 28526281705 No Longer Active Mima Erazo SCLEROSCOPE TESTER Active CORICIDIN HBP CONGESTION/COUGH 10-200 MG ORAL CAPS Take as directed on box as needed for cold/flu symptoms DEXTROMETHORPHAN-GUAIFENESIN 95860079980 Active Cherelle Speaks SCLEROSCOPE TESTER Active OMEGA-3 300 MG ORAL CAPS 4 caps by mouth daily OMEGA-3 FATTY ACIDS 60736062801 Active Mima Erazo SCLEROSCOPE TESTER Active FLUVOXAMINE MALEATE 100 MG ORAL TABS Take 1/2 tab at noon FLUVOXAMINE MALEATE 87734461032 No Longer Active Cherelle Avila SCLEROSCOPE TESTER Active [facility] LUBRICANT EYE DROPS 0.4-0.3 % OPHTH SOLN POLYETHYL GLYCOL-PROPYL GLYCOL 42287150487 Active Mima Erazo SCLEROSCOPE TESTER Active MIRALAX POWD 17g by mouth daily, for constipation POLYETHYLENE GLYCOL 3350 08841363530 Active Alina Castaneda MD PhD Active HUMALOG KWIKPEN 100 UNIT/ML SC SOPN 20 units with breakfast, 10 units with lunch, 10 units with dinner, for diabetes INSULIN LISPRO (HUMAN ) 05395626299 Active Alina Castaneda MD PhD Active TRUETEST TEST STRP check blood sugars 3x/day GLUCOSE BLOOD 36614181333 Active Maliheh Ziglari MERCHANDISE STOCKER Active ACCU-CHEK ROSA UZMA Use device to check blood sugars BLOOD GLUCOSE MONITORING SUPPL 28770282432 No Longer Active Maliheh Ziglari MERCHANDISE STOCKER Active ACCU-CHEK ROSA INVITR STRP use strips with device to check blood sugars 3 times daily GLUCOSE BLOOD 46668153957 No Longer Active Maliheh Ziglari MERCHANDISE STOCKER Active VERAPAMIL HCL ER 180 MG ORAL CR-TABS 1 pill by mouth twice daily, for migraine prevention VERAPAMIL HCL 75773439510 Active CRYSTAL Rodrigues Active CYCLOBENZAPRINE HCL 10 MG TABS 1 tablet by mouth three times daily, scheduled CYCLOBENZAPRINE HCL 69566350373 No Longer Active Alina Castaneda MD PhD Active HUMALOG 100 UNIT/ML SOLN Take 20 units with breakfast, 10u with lunch and suppetr. INSULIN LISPRO (HUMAN) 25094628945 No Longer Active Alina Castaneda MD PhD Active TRUETEST TEST STRP check sugars 4x/day GLUCOSE BLOOD 74580335011 No Longer Active Alina Castaneda MD PhD Active MORPHINE SULFATE 30 MG TABS 1 pill by mouth twice daily, for pain MORPHINE SULFATE 55375399397 No Longer Active Mason Loredo MD Active ACYCLOVIR 400 MG ORAL TABS 1 pill three times daily x 5 days, for cold sore outbreak ACYCLOVIR 08083498707 No Longer Active Alina Castaneda MD PhD Active PENICILLIN V POTASSIUM 500 MG TABS 1 pill by mouth three times daily PENICILLIN V POTASSIUM 15336130708 No Longer Active Alina Castaneda MD PhD Active UROXATRAL 10 MG [id number] Take 1 tablet by mouth daily ALFUZOSIN HCL 05501295814 No Longer Active Alina Castaneda MD PhD Active THIOTHIXENE 5 MG CAPS by mouth twice a day THIOTHIXENE 53653376155 No Longer Active Alina Castaneda MD PhD Active ZYPREXA 7.5 MG TABS 1 at HS OLANZAPINE 73449940181 No Longer Active Alina Castaneda MD PhD Active BD INSULIN SYRINGE 28G X 1/2" 1 ML MISC 1 four times per day INSULIN SYRINGE-NEEDLE U-100 45308619595 Active Marvel MENDOZAP Active DETROL LA 4 MG [id number] Take 1 tablet by mouth daily TOLTERODINE TARTRATE 81591314573 No Longer Active Alina Castaneda MD PhD Active TERESE CONTOUR TEST STRP monitor blood sugars 3x/day GLUCOSE BLOOD 22421958930 No Longer Active Alina Castaneda MD PhD Active EQL TRUETEST TEST STRP Test blood sugar TID GLUCOSE BLOOD 83451784270 No Longer Active Alina Castaneda MD PhD Active FLUTICASONE PROPIONATE 50 MCG/ACT SUSP 2 sprays each nostril qDay x 30 days FLUTICASONE PROPIONATE 48282929840 No Longer Active Alina Castaneda MD PhD Active IBUPROFEN 200 MG TABS 1 Q 6 hr. PRN IBUPROFEN 30249708727 No Longer Active Alina Castaneda MD PhD Active NIACIN ER 500 MG CR-TABS 4 qHS (for triglycerides) NIACIN 95453859030 No Longer Active Alina Castaneda MD PhD Active ALFUZOSIN HCL ER 10 MG IP29X-RJC 1 tablet daily ALFUZOSIN HCL 44868431354 Active CRYSTAL Rodrigues Active SAPHRIS 5 MG SUBL by mouth twice a day ASENAPINE MALEATE 37468162663 No Longer Active Maliheh Ziglari MERCHANDISE STOCKER Active ACETAMINOPHEN 500 MG TABS 2 Q 6 hr. PRN ACETAMINOPHEN 52505983929 No Longer Active Maliheh Ziglari MERCHANDISE STOCKER Active ORPHENADRINE CITRATE ER 100 MG SA54F-PKC 1 every 12 hr. as needed ORPHENADRINE CITRATE 87436965555 No Longer Active Alina Castaneda MD PhD Active NIACIN CR 500 MG CR-TABS 2 qHS NIACIN 28251195442 No Longer Active Alina Castaneda MD PhD Active AMOXICILLIN 500 MG CAPS 2 po BID x 10 days AMOXICILLIN 45995700107 No Longer Active Alina Castaneda MD PhD Active HYDROCODONE-ACETAMINOPHEN 7.5-325 MG TABS 1 four times a day as needed for pain HYDROCODONE-ACETAMINOPHEN 61613643824 No Longer Active Alina Castaneda MD PhD Active DOXEPIN HCL 10 MG CAPS Take 1 tablet by mouth daily DOXEPIN HCL 51056944088 No Longer Active Salina Han RMA Active NAVANE 10 MG CAPS 1/2 tablet twice a day THIOTHIXENE No Longer Active Salina ROBBINSA Active CYCLOBENZAPRINE HCL 10 MG TABS 1/2 tablet by mouth every 8 hours as needed for muscle spasms CYCLOBENZAPRINE HCL 38063940981 No Longer Active Alina Castaneda MD PhD Active BACTROBAN 2 % CREAM apply to ear and nose twice daily MUPIROCIN CALCIUM 95525024135 No Longer Active Alina Castaneda MD PhD Active HYDROCODONE-ACETAMINOPHEN 5-325 MG TABS take one tablet by mouth every four hours as needed for pain HYDROCODONE-ACETAMINOPHEN 45756267789 No Longer Active Alina Castaneda MD PhD Active ZYPREXA 5 MG TABS take one tablet by mouth every evening OLANZAPINE 07515074644 No Longer Active Alina Castaneda MD PhD Active ALBUTEROL SULFATE 0.083 % NEBU SOLN one vial per nebulizer TID and PRN cough/ soa ALBUTEROL SULFATE 39154974555 No Longer Active Alina Castaneda MD PhD Active GUAIFENESIN 600 MG [id number] 1 tablet by mouth twice daily if needed for cough GUAIFENESIN 22500009995 No Longer Active Marvel MARROQUIN Active AZITHROMYCIN 500 MG SOLR 1 po q day AZITHROMYCIN 39052224298 No Longer Active Alina Castaneda MD PhD Active PROMETHAZINE-CODEINE 6.25-10 MG/5ML SYRP 1 tsp po q 6 hours prn cough PROMETHAZINE-CODEINE 15796600300 No Longer Active Alina Castaneda MD PhD Active CEFDINIR 300 MG CAPS by mouth twice a day CEFDINIR 26588946393 No Longer Active Alina Castaneda MD PhD Active METFORMIN HCL 500 MG [id number] Take 3 tablets by mouth everyday METFORMIN HCL 21890646828 No Longer Active Alina Castaneda MD PhD Active LEVEMIR 100 UNIT/ML SOLN 90 units SQ qHS INSULIN DETEMIR 44312105406 No Longer Active Marvel MARROQUIN Active TOPROL XL 100 MG [id number]-WCS 1 @ HS METOPROLOL SUCCINATE 57662979027 No Longer Active Marvel MARROQUIN Active ALLOPURINOL 300 MG TABS Take one by mouth daily ALLOPURINOL 94042423046 Active Mimacecily Erazo SCLEROSCOPE TESTER Active ZYPREXA 10 MG TABS Take one by mouth daily OLANZAPINE 02869951406 No Longer Active Alina Castaneda MD PhD Active NOVOLOG 100 UNIT/ML SOLN 40 units with every meal INSULIN ASPART 95695562727 No Longer Active Alina Castaneda MD PhD Active VERAPAMIL HCL CR 120 MG TAB CR 1 qPM VERAPAMIL HCL 24061031316 No Longer Active Salina ROJAS Active ZYPREXA 15 MG TABS Take 1 tablet by mouth daily OLANZAPINE 93012570870 No Longer Active Marvel MARROQUIN Active ALBUTEROL SULFATE (2.5 MG/3ML) 0.083% NEBU 1 neb tid and prn cough ALBUTEROL SULFATE 37876766627 No Longer Active Alina Castaneda MD PhD Active LANTUS 100 UNIT/ML SOLN 60 units sq q hs INSULIN GLARGINE 61225003470 No Longer Active CRYSTAL Suarez Active ALBUTEROL SULFATE (2.5 MG/3ML) 0.083% NEBU 1 neb tid and prn cough ALBUTEROL SULFATE (2.5 MG/3ML) 0.083% NEBU 731432 ALBUTEROL SULFATE Inactive ZYPREXA 15 MG TABS Take 1 tablet by mouth daily ZYPREXA 15 MG TABS 106200 OLANZAPINE Inactive VERAPAMIL HCL CR 120 MG TAB CR 1 qPM VERAPAMIL HCL CR 120 MG TAB CR VERAPAMIL HCL Inactive ZYPREXA 10 MG TABS Take one by mouth daily ZYPREXA 10 MG TABS 011865 OLANZAPINE Inactive TOPROL XL 100 MG [id number] 1 @ HS TOPROL XL 100 MG [id number] METOPROLOL SUCCINATE Inactive LEVEMIR 100 UNIT/ML SOLN 90 units SQ qHS LEVEMIR 100 UNIT/ML SOLN INSULIN DETEMIR Inactive PROMETHAZINE-CODEINE 6.25-10 MG/5ML SYRP 1 tsp po q 6 hours prn cough PROMETHAZINE-CODEINE 6.25-10 MG/5ML SYRP 632007 PROMETHAZINE- CODEINE Inactive GUAIFENESIN 600 MG [id number] 1 tablet by mouth twice daily if needed for cough GUAIFENESIN 600 MG [id number] GUAIFENESIN Inactive ALBUTEROL SULFATE 0.083 % NEBU SOLN one vial per nebulizer TID and PRN cough/ soa ALBUTEROL SULFATE 0.083 % NEBU SOLN 120978 ALBUTEROL SULFATE Inactive ZYPREXA 5 MG TABS take one tablet by mouth every evening ZYPREXA 5 MG TABS 718054 OLANZAPINE Inactive HYDROCODONE-ACETAMINOPHEN 5-325 MG TABS take one tablet by mouth every four hours as needed for pain HYDROCODONE-ACETAMINOPHEN 5-325 MG TABS 811603 HYDROCODONE-ACETAMINOPHEN Inactive BACTROBAN 2 % CREAM apply to ear and nose twice daily BACTROBAN 2 % CREAM 494530 MUPIROCIN CALCIUM Inactive CYCLOBENZAPRINE HCL 10 MG TABS 1/2 tablet by mouth every 8 hours as needed for muscle spasms CYCLOBENZAPRINE HCL 10 MG TABS 120111 CYCLOBENZAPRINE HCL Inactive NAVANE 10 MG CAPS 1/2 tablet twice a day NAVANE 10 MG CAPS THIOTHIXENE Inactive DOXEPIN HCL 10 MG CAPS Take 1 tablet by mouth daily DOXEPIN HCL 10 MG CAPS 9791249 DOXEPIN HCL Inactive HYDROCODONE-ACETAMINOPHEN 7.5-325 MG TABS 1 four times a day as needed for pain HYDROCODONE-ACETAMINOPHEN 7.5-325 MG TABS 304595 HYDROCODONE-ACETAMINOPHEN Inactive NIACIN CR 500 MG CR-TABS 2 qHS NIACIN CR 500 MG CR- TABS NIACIN Inactive ORPHENADRINE CITRATE ER 100 MG [id number] 1 every 12 hr. as needed ORPHENADRINE CITRATE ER 100 MG [id number] ORPHENADRINE CITRATE Inactive ACETAMINOPHEN 500 MG TABS 2 Q 6 hr. PRN ACETAMINOPHEN 500 MG TABS 649863 ACETAMINOPHEN Inactive SAPHRIS 5 MG SUBL by mouth twice a day SAPHRIS 5 MG SUBL ASENAPINE MALEATE Inactive NIACIN ER 500 MG CR-TABS 4 qHS (for triglycerides) NIACIN ER 500 MG CR-TABS NIACIN Inactive IBUPROFEN 200 MG TABS 1 Q 6 hr. PRN IBUPROFEN 200 MG TABS 497430 IBUPROFEN Inactive FLUTICASONE PROPIONATE 50 MCG/ACT SUSP 2 sprays each nostril qDay x 30 days FLUTICASONE PROPIONATE 50 MCG/ACT SUSP 281647 FLUTICASONE PROPIONATE Inactive EQL TRUETEST TEST STRP Test blood sugar TID EQL TRUETEST TEST STRP GLUCOSE BLOOD Inactive TERESE CONTOUR TEST STRP monitor blood sugars 3x/day TERESE CONTOUR TEST STRP GLUCOSE BLOOD Inactive DETROL LA 4 MG [id number] Take 1 tablet by mouth daily DETROL LA 4 MG [id number]-VLZ TOLTERODINE TARTRATE Inactive ZYPREXA 7.5 MG TABS 1 at HS ZYPREXA 7.5 MG TABS 598109 OLANZAPINE Inactive THIOTHIXENE 5 MG CAPS by mouth twice a day THIOTHIXENE 5 MG CAPS 222728 THIOTHIXENE Inactive UROXATRAL 10 MG GL26W-BNW Take 1 tablet by mouth daily UROXATRAL 10 MG LI51K-RJE ALFUZOSIN HCL Inactive ACYCLOVIR 400 MG ORAL TABS 1 pill three times daily x 5 days, for cold sore outbreak ACYCLOVIR 400 MG ORAL TABS 488828 ACYCLOVIR Inactive TRUETEST TEST STRP check sugars 4x/day TRUETEST TEST STRP GLUCOSE BLOOD Inactive HUMALOG 100 UNIT/ML SOLN Take 20 units with breakfast, 10u with lunch and suppetr. HUMALOG 100 UNIT/ML SOLN INSULIN LISPRO ( HUMAN) Inactive CYCLOBENZAPRINE HCL 10 MG TABS 1 tablet by mouth three times daily, scheduled CYCLOBENZAPRINE HCL 10 MG TABS 216019 CYCLOBENZAPRINE HCL Inactive ACCU-CHEK ROSA INVITR STRP use strips with device to check blood sugars 3 times daily ACCU-CHEK ROSA INVITR STRP GLUCOSE BLOOD Inactive ACCU-CHEK ROSA UZMA Use device to check blood sugars ACCU-CHEK ROSA UZMA BLOOD GLUCOSE MONITORING SUPPL Inactive FLUVOXAMINE MALEATE 100 MG ORAL TABS Take 1/2 tab at noon FLUVOXAMINE MALEATE 100 MG ORAL TABS 119883 FLUVOXAMINE MALEATE Inactive FLUVOXAMINE MALEATE 100 MG TABS Take one (1) tablet by mouth am, 1/2 at noon FLUVOXAMINE MALEATE 100 MG TABS 196207 FLUVOXAMINE MALEATE Inactive BACTROBAN 2 % CREAM Apply to affected area BID for up to 10 days BACTROBAN 2 % CREAM 629598 MUPIROCIN CALCIUM Inactive NOVOFINE 32G X 6 MM MISC use one four times per day NOVOFINE 32G X 6 MM MISC INSULIN PEN NEEDLE Inactive TRAZODONE HCL 100 MG ORAL TABS 1 tab by mouth for sleep TRAZODONE HCL 100 MG ORAL TABS 460288 TRAZODONE HCL Inactive LOVAZA 1 GM CAPS 4 daily (for triglycerides) LOVAZA 1 GM CAPS 530206 [id number] ETHYL ESTERS Inactive METFORMIN HCL ER 500 MG [id number] Take three tablets by mouth everyday METFORMIN HCL ER 500 MG [id number]-OGH METFORMIN HCL Inactive METOPROLOL SUCCINATE 100 MG SA09J-ULS 1 by mouth daily for blood pressure METOPROLOL SUCCINATE 100 MG EZ25K-QVK METOPROLOL SUCCINATE Inactive AMITIZA 24 MCG ORAL CAPS Take one capsule BID for constipation. AMITIZA 24 MCG ORAL CAPS LUBIPROSTONE Inactive TOLTERODINE TARTRATE 2 MG TABS 1 pill twice daily, for bladder TOLTERODINE TARTRATE 2 MG TABS 925256 TOLTERODINE TARTRATE Inactive COLACE 100 MG CAPS 1 pill by mouth twice daily, for constipation COLACE 100 MG CAPS 4451353 DOCUSATE SODIUM Inactive LOMOTIL 2.5-0.025 MG ORAL TABS take 1-2 tabs PO after each stool, no more than 8 in 24 hours LOMOTIL 2.5-0.025 MG ORAL TABS 1442533 DIPHENOXYLATE-ATROPINE Inactive ZOFRAN 4 MG TABS 1 po q4hr PRN Nausea ZOFRAN 4 MG TABS 401729 ONDANSETRON HCL Inactive HYDROCODONE-ACETAMINOPHEN 5-325 MG TABS 2 tabs by mouth three times daily for pain HYDROCODONE-ACETAMINOPHEN 5-325 MG TABS 905875 HYDROCODONE-ACETAMINOPHEN Inactive ZOLPIDEM TARTRATE 10 MG TABS take at bedtime ZOLPIDEM TARTRATE 10 MG TABS 608263 ZOLPIDEM TARTRATE Inactive LISINOPRIL 20 MG TABS 1 BID LISINOPRIL 20 MG TABS 588366 LISINOPRIL Inactive TRAVATAN Z 0.004 % SOLN 1 gtt each eye daily TRAVATAN Z 0.004 % SOLN TRAVOPROST Inactive CEFDINIR 300 MG CAPS by mouth twice a day CEFDINIR 300 MG CAPS 648445 CEFDINIR Inactive AZITHROMYCIN 500 MG SOLR 1 po q day AZITHROMYCIN 500 MG SOLR 81475276729 AZITHROMYCIN Inactive AMOXICILLIN 500 MG CAPS 2 po BID x 10 days AMOXICILLIN 500 MG CAPS 076211 AMOXICILLIN Inactive PENICILLIN V POTASSIUM 500 MG TABS 1 pill by mouth three times daily PENICILLIN V POTASSIUM 500 MG TABS 880037 PENICILLIN V POTASSIUM Inactive KEFLEX 500 MG CAP 1 po BID x 7 days KEFLEX 500 MG CAP 604426 CEPHALEXIN Inactive Immunizations Vaccine Administration Date Value [...] Fluvirin, Fluarix, Agriflu(>=18 yo)) Fluzone (>3 yrs.) [[id number]] Influenza, seasonal, injectable pneumococcal immunization administered Pneumovax [...] Panel - Chemistry sodium, serum 137 mmol/L 680-549 9093/10/12 potassium, serum 4.8 mmol/L 3.5-5.2 chloride, serum 102 mmol/L 98-107 carbon dioxide, venous blood 27.6 mmol/L 21.0-32.0 blood glucose 168 mg/dL 65-110 calcium, serum 9.0 mg/dL 8.5-10.1 urea nitrogen, blood 15 mg/dL 7-18 creatinine, serum 1.04 mg/dL 0.55-1.30 sodium, serum 138 mmol/L 472-525 8011/11/11 potassium, serum 4.7 mmol/L 3.5-5.2 chloride, serum [...] % 11.6-14.8 platelet count 240 10^3/MM^3 10*3/mm3 829-279 2238/11/11 leukocyte count, blood 9.6 10^3/MM^3 10*3/mm3 4.6-10.2 hematocrit, blood 39.5 % 41.0-53.0 mean corpuscular volume, RBC 91 fL 80-97 mean corpuscular hemoglobin, RBC 31.2 pg 27.0-31.2 mean corpuscular hemoglobin concentration, RBC 34.1 G/DL % 31.8- 35.4 red blood cell distribution width 15.3 % 11.6-14.8 platelet count 252 10^3/MM^3 10*3/mm3 851-351 0702/11/11 neutrophils as percent of blood leukocytes 75.0 % 42.2-75.2 monocytes as percent of blood leukocytes 6.5 % 1.7-9.3 lymphocytes as percent of blood leukocytes 12.7 % 20.5-51.1 erythrocyte (RBC) count 4.33 10^6/MM^3 10*6/mm3 4.69-6.13 hemoglobin, blood 13.5 g/dL 13.5-17.5 Lab Report: HGBA1C - Chemistry hemoglobin A1C, blood, as % of total hemoglobin 6.3 % 4.3-6.0 hemoglobin A1C, blood, as % of total hemoglobin 6.1 % 4.3-6.0 hemoglobin A1C, blood, as % of total hemoglobin 6.1 % 4.3-6.0 Lab Report: Lipid Panel, HEPATIC PANEL, Uric Acid - Chemistry cholesterol, serum 187 mg/dL 661-145 2511/06/14 triglyceride, serum, fasting 246 mg/dL 30-200 HDL [...] urine Clear Clear urine color Yellow Colorless;Lightyellow;Straw;Yellow glucose, urine, semiquantitative Negative Negative ketones, urine, [...] gravity, urine 1.015 urinalysis, routine Clean Catch nitrite, urine, semiquantitative negative urobilinogen, urine, semiquantitative (dipstick) negative protein, urine, semiquantitative (dipstick) negative urine color yellow appearance, urine clear leukocyte esterase, urine, by dipstick negative Office Visit: Difficulty urinating - Chemistry [...] negative Encounters Code Encounter Date Provider Facility CPT-37029 Level 3 Est. Patient 14:34:52 CDT Vanessa Hickey MD [facility]-16890 Level 3 Est. Patient 16:27:51 CDT Mima Erazo [facility]-30147 Level 3 Est. Patient 14:39:00 POSTMASTER RELIEF Vanessa Hickey MD [facility]-01791 Level 2 Est. Patient 18:43:34 CDT Mima Erazo [facility] CPT-60068 Level 3 Est. Patient 16:22:09 CDT Cherelle Avila [facility] CPT-27428 Level 4 Est. Patient 17:55:14 CDT Mima Erazo [facility] CPT-39460 Level 2 Est. Patient 17:13:21 CDT Alina Castaneda MD PhD [facility]-21637 Level 3 Est. Patient 14:46:15 CDT Vanessa Hickey MD [facility]-28575 Level 3 Est. Patient 09:34:56 CDT Alina Castaneda MD [facility]13281 Level 3 Est. Patient 21:40:19 CDT Mima Erazo APRN [facility]-52040 Level 3 Est. Patient 09:26:40 CDT Marvel Charles [facility]-72413 Level 3 Est. Patient 12:36:43 CDT Vanessa Hickey MD [facility]-63082 Level 3 Est. Patient 12:57:49 CDT Vanessa Hickey MD [facility]01921 Level 3 Est. Patient 00:28:25 CDT Alina Castaneda MD [facility]93567 Level 2 Est. Patient 12:52:14 CDT Alina Castaneda MD [facility]03457 Level 3 Est. Patient 11:51:18 POSTMASTER RELIEF Alina Castaneda MD [facility]02115 Level 3 Est. Patient 10:09:22 POSTMASTER RELIEF Alina Castaneda MD [facility]29515 Level 3 Est. Patient 14:36:26 POSTMASTER RELIEF Marvel [facility]69355 Level 3 Est. Patient 13:34:47 POSTMASTER RELIEF Alina Castaneda MD [facility]61894 Level 3 Est. Patient 19:52:08 POSTMASTER RELIEF Al[facility] Center[address] Level 3 Est. Patient 10:01:51 POSTMASTER RELIEF Marvel Charles [facility]63264 Level 3 Est. Patient 21:54:06 CDT Vanessa Hickey MD [facility]15665 Level 3 Est. Patient 08:54:46 CDT Alina Castaneda MD [facility]84591 Level 3 Est. Patient 09:32:11 CDT Maliheh Ziglari [facility]-79336 Level 3 Est. Patient 12:02:49 CDT Alina Castaneda MD [facility]-31344 Level 3 Est. Patient 19:17:33 CDT Alina Castaneda MD [facility]31967 Level 3 Est. Patient 13:19:10 CDT Marvel Charles [facility]-27067 Level 3 Est. Patient 08:20:05 CDT Alina Castaneda MD [facility]18367 Level 3 Est. Patient 15:17:18 CDT Alina Castaneda MD [facility]-48272 Level 3 Est. Patient 14:25:36 POSTMASTER RELIEF Marvel Charles [facility]-58467 Level 3 Est. Patient 10:09:15 POSTMASTER RELIEF Marvel Charles [facility]-60291 Level 3 Est. Patient 21:28:43 CDT Alina Castaneda MD [facility]-92029 Level 3 Est. Patient 15:20:11 CDT Marvel Gurdeepajayestela [facility]-71494 Level 4 Est. Patient 19:08:12 CDT Alina Castaneda MD [facility]-89439 Level 3 Est. Patient 15:06:39 CDT Marvel Gurdeepajayestela [facility]-83476 Level 4 Est. Patient 17:48:15 CDT Alina Castaneda MD [facility]42134 Level 3 Est. Patient 14:53:49 CDT Alina Castaneda MD [facility]60539 Level 3 Est. Patient 09:35:16 CDT Alina Castaneda MD [facility]-74603 Level 3 Est. Patient 12:23:22 CDT Alina Castandea MD [facility]-13578 Level 3 Est. Patient 16:19:15 CDT Alina Castaneda MD [facility]05316 Level 3 Est. Patient 21:39:56 POSTMASTER RELIEF Alina Castaneda MD [facility]-27368 Level 4 Est. Patient 14:12:56 POSTMASTER RELIEF Alina Castaneda MD [facility]-32053 Level 2 Est. Patient 15:34:57 POSTMASTER RELIEF Alina Castaneda MD [facility]-11025 Level 3 Est. Patient 12:17:04 POSTMASTER RELIEF Alina Castaneda MD [facility]-28200 Level 3 Est. Patient 09:18:18 POSTMASTER RELIEF Marvel Charles [facility]-92902 Level 2 Est. Patient 21:50:24 CDT Alina Castaneda MD [facility]-86795 Level 3 Est. Patient 09:17:28 CDT Marvel Charles [facility]-25849 Level 4 Est. Patient 18:54:02 CDT Alina Castaneda MD [facility]-87572 Level 3 Est. Patient 10:47:10 CDT Alina Castaneda MD [facility]54225 Level 3 Est. Patient 09:22:20 CDT Marvel Charles [facility]79860 Level 3 Est. Patient 16:39:43 CDT Marvel Charles [facility]43148 Level 3 Est. Patient 16:05:16 CDT Alina Castaneda MD [facility] CPT-83658 Level 3 Est. Patient 00:29:15 CDT Alina Castaneda MD [facility] CPT-56515 Level 3 Est. Patient 10:49:22 POSTMASTER RELIEF Marvel Thurstonestela [facility] CPT-87859 Level 3 Est. Patient 21:30:19 POSTMASTER RELIEF Alina Castaneda MD [facility] CPT-91970 Level 4 Est. Patient 17:04:[address] [facility]69542 Level 3 Est. Patient 15:34:[address] [facility] CPT-44601 Level 2 Est. Patient 12:51:58 POSTMASTER RELIEF Alina Castaneda MD [facility] CPT-60474 Level 3 Est. Patient 13:20:01 POSTMASTER RELIEF Alina Castaneda MD [facility] CPT-25479 Level 3 Est. Patient 09:23:35 CDT Alina Castaneda MD [facility] Procedures Code Procedure Name Date Entry Date Standard Description CPT-TCM Transitional Care Mgmt-Moderate 10:25:31 CDT CPT-34428 Bladder Scan 14:34:53 CDT CPT-49378 Bladder Scan 14:39:01 POSTMASTER RELIEF CPT-TCMM Transitional Care Mgmt-Moderate 10:30:19 POSTMASTER RELIEF CPT-23366 Bladder Scan 12:36:44 CDT CPT-30420 Bladder Scan 21:54:06 CDT CPT-G0008 Administration of Influenza Virus Vaccine 13:05:26 CDT CPT-38431 Fluzone Quadrivalent Intramuscular Suspension 0.5 ML 13: 05:26 CDT CPT-15737 Administration single or combination vaccine inc oral 11 :49:51 CDT CPT-69080 Pneumovax 11:49:51 CDT CPT-42970 Ribs unilateral 2V 12:37:22 POSTMASTER RELIEF CPT-71529 Chest 2V Frontal and Lat 17:15:26 CDT CPT-08249 Abx/Therapy Injection 18:54:02 CDT CPT-J0696 Rocephin 1000 mg (Ceftriaxone) 16:00:32 CDT CPT-78043 Chest 2V Frontal and Lat 15:26:45 CDT CPT-77985 Chest 2V Frontal and Lat 10:23:27 CDT CPT-70697 Venipuncture Draw Fee 10:11:00 CDT CPT-32097 Administration single or combination vaccine inc oral 11 :56:38 CDT CPT-64165 Influenza split virus > age 3 11:56:38 CDT CPT-92034 Venipuncture Draw Fee 08:49:54 POSTMASTER RELIEF CPT-17967 EKG Trac and Interp 17:54:19 POSTMASTER RELIEF
--- OUTSIDE RECORDS SUMMARY | 2018-07-02 15:36 | XMS REPORT | Clinical Summary ---
Author Author Admin, TERELL Organization [facility] Address Unknown Phone Unavailable Allergies, 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 Erazo DINKING MACHINE OPERATOR Benign paroxysmal positional vertigo Vertigo, benign paroxysmal position 386.11 Inactive Mima Erazo DINKING MACHINE OPERATOR Benign paroxysmal positional vertigo High-risk sexual behavior V69.2 Active Alina Castaneda MD PhD High-risk sexual behavior Erectile dysfunction 302.72 Active Alina Castaneda MD PhD Psychosexual dysfunction with inhibited sexual excitement Constipation 564.00 Active Alina Castaneda MD PhD Constipation, unspecified Skin lesion 709.9 Active Alina Castaneda MD PhD Unspecified disorder of skin and subcutaneous tissue Malaise and fatigue 780.79 Active Cherelle Speaks DINKING MACHINE OPERATOR Other malaise and fatigue Diarrhea 787.91 Active Cherelle Speaks DINKING MACHINE OPERATOR Diarrhea PHARYNGITIS 462 Active Cherelle Speaks DINKING MACHINE OPERATOR Acute pharyngitis Colitis 558.9 Active Mima Erazo DINKING MACHINE OPERATOR Other and unspecified noninfectious gastroenteritis and colitis WOUND, OPEN, NOSE ICD-873.20 Inactive Alina Castaneda MD PhD DIABETES, TYPE 2 ICD-250.00 Inactive Alina Castaneda MD PhD HYPERTENSION ICD-401.9 Inactive Alina Castaneda MD PhD URI ICD-465.9 Inactive Alina Castaneda MD PhD CHEST PAIN ICD-786.50 Inactive Alina Castaneda MD PhD FH STROKE ICD-V17.1 Inactive Marvel Charles PRECISION AGRICULTURE SPECIALIST FATIGUE ICD-780.79 Inactive Alina Castaneda MD PhD [...] Castaneda MD PhD Hypoglycemia ICD-251.2 Inactive Alina Castandea MD PhD Dizziness ICD-780.4 Inactive Alina Castaneda [...] MISC 4 a day INSULIN PEN NEEDLE 80701800110 Active Marvel MARROQUIN Active AMITIZA 24 MCG ORAL CAPS Take one capsule BID for constipation LUBIPROSTONE 82586103642 Active Mima Erazo APRN Active LEVEMIR FLEXTOUCH 100 UNIT/ML SC SOPN 75 units SQ each evening, for diabetes INSULIN DETEMIR 68518533006 Active CRYSTAL Rodrigues Active TRUEPLUS LANCETS 30G MISC 3 a day LANCETS 42825609599 Active Marvel MARROQUIN Active TOLTERODINE TARTRATE 2 MG TABS 1 pill twice daily, for bladder TOLTERODINE TARTRATE 44323595390 No Longer Active Vanessa Hickey MD Active AMITIZA 24 MCG ORAL CAPS Take one capsule BID for constipation. LUBIPROSTONE 70724512247 No Longer Active Vanessa Hickey MD Active LOMOTIL 2.5-0.025 MG ORAL TABS take 1-2 tabs PO after each stool, no more than 8 in 24 hours DIPHENOXYLATE-ATROPINE 95404090784 Active Grace Azam RMA Active FLUVOXAMINE MALEATE 100 MG ORAL TABS take one tab every AM et HS, and take 1/ 2 tab at noon FLUVOXAMINE MALEATE 41800330677 Active Gracekailee Nelsonb RMA Active METOPROLOL SUCCINATE 100 MG [id number]-MFW 1 by mouth daily for blood pressure METOPROLOL SUCCINATE 49903786305 No Longer Active Grace Azam RMA Active METFORMIN HCL ER 500 MG [id number] Take three tablets by mouth everyday METFORMIN HCL 77313064629 No Longer Active Grace Azam RMA Active LOVAZA 1 GM CAPS 4 daily (for triglycerides) OMEGA-3- ACID ETHYL ESTERS 75042301730 No Longer Active Grace Azam RMA Active TRAZODONE HCL 100 MG ORAL TABS 1 tab by mouth for sleep TRAZODONE HCL 83902450175 No Longer Active Gracekailee Nelsonb RMA Active NOVOFINE 32G X 6 MM MISC use one four times per day INSULIN PEN NEEDLE 18953740457 No Longer Active Grace Azam RMA Active BACTROBAN 2 % CREAM Apply to affected area BID for up to 10 days MUPIROCIN CALCIUM 77847216965 No Longer Active Grace Azam RMA Active ZOFRAN 4 MG TABS 1 po q4hr PRN [place] ONDANSETRON HCL 95054881383 Active Salina Han RMA Active KEFLEX 500 MG CAP 1 po BID x 7 days CEPHALEXIN 99181532028 No Longer Active Cherelle Avila APRN Active FLUVOXAMINE MALEATE 100 MG TABS Take one (1) tablet by mouth am, 1/2 at noon FLUVOXAMINE MALEATE 96040114684 No Longer Active Mima Erazo APRN Active CORICIDIN HBP CONGESTION/COUGH 10-200 MG ORAL CAPS Take as directed on box as needed for cold/flu symptoms DEXTROMETHORPHAN-GUAIFENESIN 68185467029 Active Cherelle Speaks DINKING MACHINE OPERATOR Active OMEGA-3 300 MG ORAL CAPS 4 caps by mouth daily OMEGA-3 FATTY ACIDS 13603173684 Active Cherelle Speaks DINKING MACHINE OPERATOR Active FLUVOXAMINE MALEATE 100 MG ORAL TABS Take 1/2 tab at noon FLUVOXAMINE MALEATE 61016424284 No Longer Active Cherelle Speaks DINKING MACHINE OPERATOR Active [facility] LUBRICANT EYE DROPS 0.4-0.3 % OPHTH SOLN POLYETHYL GLYCOL-PROPYL GLYCOL 79097526592 Active Mima Yoeloinaum DINKING MACHINE OPERATOR Active CLONAZEPAM 1 MG TABS 1/2 pill by mouth three times daily CLONAZEPAM 85322176127 Active Alina Castaneda MD PhD Active MIRALAX POWD 17g by mouth daily, for constipation POLYETHYLENE GLYCOL 3350 01009142545 Active Alina Castaneda MD PhD Active HYDROCODONE-ACETAMINOPHEN 5-325 MG TABS 2 tabs by mouth three times daily for pain HYDROCODONE-ACETAMINOPHEN 39706769243 Active Mima Erazo DINKING MACHINE OPERATOR Active HUMALOG KWIKPEN 100 UNIT/ML SC SOPN 20 units with breakfast, 10 units with lunch, 10 units with dinner, for diabetes INSULIN LISPRO (HUMAN ) 26893716822 Active Alina Castaneda MD PhD Active LATUDA 120 MG ORAL TABS 1 pill by mouth nightly LURASIDONE HCL 22095418398 Active Alina Castaneda MD PhD Active COLACE 100 MG CAPS 1 pill by mouth twice daily, for constipation DOCUSATE SODIUM 25469863276 Active Alina Castaneda MD PhD Active TRUETEST TEST STRP check blood sugars 3x/day GLUCOSE BLOOD 08700741571 Active Marvel Mackenzieglari PRECISION AGRICULTURE SPECIALIST Active ACCU-CHEK ROSA UZMA Use device to check blood sugars BLOOD GLUCOSE MONITORING SUPPL 52748963033 No Longer Active Maljohn Mackenzieglari PRECISION AGRICULTURE SPECIALIST Active ACCU-CHEK ROSA INVITR STRP use strips with device to check blood sugars 3 times daily GLUCOSE BLOOD 23251555595 No Longer Active Marvel MENDOZAP Active VERAPAMIL HCL ER 180 MG ORAL CR-TABS 1 pill by mouth twice daily, for migraine prevention VERAPAMIL HCL 43139367174 Active Alina Castaneda MD PhD Active CYCLOBENZAPRINE HCL 10 MG TABS 1 tablet by mouth three times daily, scheduled CYCLOBENZAPRINE HCL 68614933926 No Longer Active Alina Castaneda MD PhD Active HUMALOG 100 UNIT/ML SOLN Take 20 units with breakfast, 10u with lunch and suppetr. INSULIN LISPRO (HUMAN) 10952246484 No Longer Active Alina Castaneda MD PhD Active TRUETEST TEST STRP check sugars 4x/day GLUCOSE BLOOD 55100442130 No Longer Active Alina Castaneda MD PhD Active MORPHINE SULFATE 30 MG TABS 1 pill by mouth twice daily, for pain MORPHINE SULFATE 91719410538 Active Mima Erazo DINKING MACHINE OPERATOR Active ACYCLOVIR 400 MG ORAL TABS 1 pill three times daily x 5 days, for cold sore outbreak ACYCLOVIR 75374209143 No Longer Active Alina Castaneda MD PhD Active PENICILLIN V POTASSIUM 500 MG TABS 1 pill by mouth three times daily PENICILLIN V POTASSIUM 95136727278 No Longer Active Alina Castaneda MD PhD Active UROXATRAL 10 MG [id number]-QGV Take 1 tablet by mouth daily ALFUZOSIN HCL 16861940688 No Longer Active Alina Castaneda MD PhD Active THIOTHIXENE 5 MG CAPS by mouth twice a day THIOTHIXENE 27423124310 No Longer Active Alina Castaneda MD PhD Active ZYPREXA 7.5 MG TABS 1 at HS OLANZAPINE 72435441388 No Longer Active Alina Castaneda MD PhD Active BD INSULIN SYRINGE 28G X 1/2" 1 ML MISC 1 four times per day INSULIN SYRINGE-NEEDLE U-100 19309764150 Active Marvel Charles PRECISION AGRICULTURE SPECIALIST Active DETROL LA 4 MG [id number] Take 1 tablet by mouth daily TOLTERODINE TARTRATE 58430265260 No Longer Active Alina Castaneda MD PhD Active TERESE CONTOUR TEST STRP monitor blood sugars 3x/day GLUCOSE BLOOD 16169078834 No Longer Active Alina Castaneda MD PhD Active EQL TRUETEST TEST STRP Test blood sugar TID GLUCOSE BLOOD 74826747972 No Longer Active Alina Castaneda MD PhD Active FLUTICASONE PROPIONATE 50 MCG/ACT SUSP 2 sprays each nostril qDay x 30 days FLUTICASONE PROPIONATE 28984469130 No Longer Active Alina Castaneda MD PhD Active IBUPROFEN 200 MG TABS 1 Q 6 hr. PRN IBUPROFEN 28602611548 No Longer Active Alina Castaneda MD PhD Active NIACIN ER 500 MG CR-TABS 4 qHS (for triglycerides) NIACIN 83593042212 No Longer Active Alina Castaneda MD PhD Active ALFUZOSIN HCL ER 10 MG [id number]-UFB 1 tablet daily ALFUZOSIN HCL 93432660043 Active Vanessa Hickey MD Active SAPHRIS 5 MG SUBL by mouth twice a day ASENAPINE MALEATE 07785897232 No Longer Active Maliheh Ziglari PRECISION AGRICULTURE SPECIALIST Active ACETAMINOPHEN 500 MG TABS 2 Q 6 hr. PRN ACETAMINOPHEN 13417069971 No Longer Active Maliheh Ziglari PRECISION AGRICULTURE SPECIALIST Active ORPHENADRINE CITRATE ER 100 MG [id number]-BPL 1 every 12 hr. as needed ORPHENADRINE CITRATE 67641855054 No Longer Active Alina Castaneda MD PhD Active NIACIN CR 500 MG CR-TABS 2 qHS NIACIN 11257996929 No Longer Active Alina Castaneda MD PhD Active AMOXICILLIN 500 MG CAPS 2 po BID x 10 days AMOXICILLIN 43324206871 No Longer Active Alina Castaneda MD PhD Active HYDROCODONE-ACETAMINOPHEN 7.5-325 MG TABS 1 four times a day as needed for pain HYDROCODONE-ACETAMINOPHEN 41857563221 No Longer Active Alina Castaneda MD PhD Active DOXEPIN HCL 10 MG CAPS Take 1 tablet by mouth daily DOXEPIN HCL 91480237831 No Longer Active Salina Han A Active NAVANE 10 MG CAPS 1/2 tablet twice a day THIOTHIXENE No Longer Active Salina Han A Active CYCLOBENZAPRINE HCL 10 MG TABS 1/2 tablet by mouth every 8 hours as needed for muscle spasms CYCLOBENZAPRINE HCL 55841563193 No Longer Active Alina Castaneda MD PhD Active BACTROBAN 2 % CREAM apply to ear and nose twice daily MUPIROCIN CALCIUM 16683009100 No Longer Active Alina Castaneda MD PhD Active HYDROCODONE-ACETAMINOPHEN 5-325 MG TABS take one tablet by mouth every four hours as needed for pain HYDROCODONE-ACETAMINOPHEN 30532338893 No Longer Active Alina Castaneda MD PhD Active ZOLPIDEM TARTRATE 10 MG TABS take at bedtime ZOLPIDEM TARTRATE 64484121015 Active Alina Castaneda MD PhD Active ZYPREXA 5 MG TABS take one tablet by mouth every evening OLANZAPINE 25564660896 No Longer Active Alina Castaneda MD PhD Active ALBUTEROL SULFATE 0.083 % NEBU SOLN one vial per nebulizer TID and PRN cough/ soa ALBUTEROL SULFATE 53195843769 No Longer Active Alina Castaneda MD PhD Active GUAIFENESIN 600 MG [id number]-ETH 1 tablet by mouth twice daily if needed for cough GUAIFENESIN 27628930964 No Longer Active Marvel Charles PRECISION AGRICULTURE SPECIALIST Active AZITHROMYCIN 500 MG SOLR 1 po q day AZITHROMYCIN 88288705578 No Longer Active Alina Castaneda MD PhD Active PROMETHAZINE-CODEINE 6.25-10 MG/5ML SYRP 1 tsp po q 6 hours prn cough PROMETHAZINE-CODEINE 76779827835 No Longer Active Alina Castaneda MD PhD Active CEFDINIR 300 MG CAPS by mouth twice a day CEFDINIR 18579763065 No Longer Active Alina Castaneda MD PhD Active METFORMIN HCL 500 MG [id number]-RVE Take 3 tablets by mouth everyday METFORMIN HCL 09642434568 No Longer Active Alina Castaneda MD PhD Active LEVEMIR 100 UNIT/ML SOLN 90 units SQ qHS INSULIN DETEMIR 53392651327 No Longer Active Marvel MARROQUIN Active TOPROL XL 100 MG [id number]-NPY 1 @ HS METOPROLOL SUCCINATE 82787352041 No Longer Active Marvel MARROQUIN Active ALLOPURINOL 300 MG TABS Take one by mouth daily ALLOPURINOL 95888845349 Active Alina Castaneda MD PhD Active ZYPREXA 10 MG TABS Take one by mouth daily OLANZAPINE 25095293910 No Longer Active Alina Castaneda MD PhD Active NOVOLOG 100 UNIT/ML SOLN 40 units with every meal INSULIN ASPART 63745657761 No Longer Active Alina Castaneda MD PhD Active VERAPAMIL HCL CR 120 MG TAB CR 1 qPM VERAPAMIL HCL 54981583939 No Longer Active Salina Ervinamelia ROJAS Active ZYPREXA 15 MG TABS Take 1 tablet by mouth daily OLANZAPINE 48580621102 No Longer Active Marvel MARROQUIN Active LISINOPRIL 20 MG TABS 1 BID LISINOPRIL 39452822017 Active Alina Castaneda MD PhD Active ALBUTEROL SULFATE (2.5 MG/3ML) 0.083% NEBU 1 neb tid and prn cough ALBUTEROL SULFATE 87379227493 No Longer Active Alina Castaneda MD PhD Active TRAVATAN Z 0.004 % SOLN 1 gtt each eye daily TRAVOPROST 58060184447 Active CRYSTAL Suarez Active LANTUS 100 UNIT/ML SOLN 60 units sq q hs INSULIN GLARGINE 81880537439 No Longer Active CRYSTAL Suarez Active ALBUTEROL SULFATE (2.5 MG/3ML) 0.083% NEBU 1 neb tid and prn cough ALBUTEROL SULFATE (2.5 MG/3ML) 0.083% NEBU 256022 ALBUTEROL SULFATE Inactive ZYPREXA 15 MG TABS Take 1 tablet by mouth daily ZYPREXA 15 MG TABS 703029 OLANZAPINE Inactive VERAPAMIL HCL CR 120 MG TAB CR 1 qPM VERAPAMIL HCL CR 120 MG TAB CR VERAPAMIL HCL Inactive ZYPREXA 10 MG TABS Take one by mouth daily ZYPREXA 10 MG TABS 455594 OLANZAPINE Inactive TOPROL XL 100 MG [id number] 1 @ HS TOPROL XL 100 MG [id number] METOPROLOL SUCCINATE Inactive LEVEMIR 100 UNIT/ML SOLN 90 units SQ qHS LEVEMIR 100 UNIT/ML SOLN INSULIN DETEMIR Inactive PROMETHAZINE-CODEINE 6.25-10 MG/5ML SYRP 1 tsp po q 6 hours prn cough PROMETHAZINE-CODEINE 6.25-10 MG/5ML SYRP 096708 PROMETHAZINE- CODEINE Inactive GUAIFENESIN 600 MG [id number]-XYK 1 tablet by mouth twice daily if needed for cough GUAIFENESIN 600 MG [id number]-IYQ GUAIFENESIN Inactive ALBUTEROL SULFATE 0.083 % NEBU SOLN one vial per nebulizer TID and PRN cough/ soa ALBUTEROL SULFATE 0.083 % NEBU SOLN 752666 ALBUTEROL SULFATE Inactive ZYPREXA 5 MG TABS take one tablet by mouth every evening ZYPREXA 5 MG TABS 430017 OLANZAPINE Inactive HYDROCODONE-ACETAMINOPHEN 5-325 MG TABS take one tablet by mouth every four hours as needed for pain HYDROCODONE-ACETAMINOPHEN 5-325 MG TABS 884389 HYDROCODONE-ACETAMINOPHEN Inactive BACTROBAN 2 % CREAM apply to ear and nose twice daily BACTROBAN 2 % CREAM 736249 MUPIROCIN CALCIUM Inactive CYCLOBENZAPRINE HCL 10 MG TABS 1/2 tablet by mouth every 8 hours as needed for muscle spasms CYCLOBENZAPRINE HCL 10 MG TABS 848125 CYCLOBENZAPRINE HCL Inactive NAVANE 10 MG CAPS 1/2 tablet twice a day NAVANE 10 MG CAPS THIOTHIXENE Inactive DOXEPIN HCL 10 MG CAPS Take 1 tablet by mouth daily DOXEPIN HCL 10 MG CAPS 2312090 DOXEPIN HCL Inactive HYDROCODONE-ACETAMINOPHEN 7.5-325 MG TABS 1 four times a day as needed for pain HYDROCODONE-ACETAMINOPHEN 7.5-325 MG TABS 208483 HYDROCODONE-ACETAMINOPHEN Inactive NIACIN CR 500 MG CR-TABS 2 qHS NIACIN CR 500 MG CR- TABS NIACIN Inactive ORPHENADRINE CITRATE ER 100 MG TR74A-CII 1 every 12 hr. as needed ORPHENADRINE CITRATE ER 100 MG [id number] ORPHENADRINE CITRATE Inactive ACETAMINOPHEN 500 MG TABS 2 Q 6 hr. PRN ACETAMINOPHEN 500 MG TABS 693754 ACETAMINOPHEN Inactive SAPHRIS 5 MG SUBL by mouth twice a day SAPHRIS 5 MG SUBL ASENAPINE MALEATE Inactive NIACIN ER 500 MG CR-TABS 4 qHS (for triglycerides) NIACIN ER 500 MG CR-TABS NIACIN Inactive IBUPROFEN 200 MG TABS 1 Q 6 hr. PRN IBUPROFEN 200 MG TABS 476322 IBUPROFEN Inactive FLUTICASONE PROPIONATE 50 MCG/ACT SUSP 2 sprays each nostril qDay x 30 days FLUTICASONE PROPIONATE 50 MCG/ACT SUSP 144116 FLUTICASONE PROPIONATE Inactive EQL TRUETEST TEST STRP Test blood sugar TID EQL TRUETEST TEST STRP GLUCOSE BLOOD Inactive TERESE CONTOUR TEST STRP monitor blood sugars 3x/day TERESE CONTOUR TEST STRP GLUCOSE BLOOD Inactive DETROL LA 4 MG OF69S-PFT Take 1 tablet by mouth daily DETROL LA 4 MG [id number] TOLTERODINE TARTRATE Inactive ZYPREXA 7.5 MG TABS 1 at HS ZYPREXA 7.5 MG TABS 683400 OLANZAPINE Inactive THIOTHIXENE 5 MG CAPS by mouth twice a day THIOTHIXENE 5 MG CAPS 521553 THIOTHIXENE Inactive UROXATRAL 10 MG FR31I-PBB Take 1 tablet by mouth daily UROXATRAL 10 MG [id number] ALFUZOSIN HCL Inactive ACYCLOVIR 400 MG ORAL TABS 1 pill three times daily x 5 days, for cold sore outbreak ACYCLOVIR 400 MG ORAL TABS 531057 ACYCLOVIR Inactive TRUETEST TEST STRP check sugars 4x/day TRUETEST TEST STRP GLUCOSE BLOOD Inactive HUMALOG 100 UNIT/ML SOLN Take 20 units with breakfast, 10u with lunch and suppetr. HUMALOG 100 UNIT/ML SOLN INSULIN LISPRO ( HUMAN) Inactive CYCLOBENZAPRINE HCL 10 MG TABS 1 tablet by mouth three times daily, scheduled CYCLOBENZAPRINE HCL 10 MG TABS 997031 CYCLOBENZAPRINE HCL Inactive ACCU-CHEK ROSA INVITR STRP use strips with device to check blood sugars 3 times daily ACCU-CHEK ROSA INVITR STRP GLUCOSE BLOOD Inactive ACCU-CHEK ROSA UZMA Use device to check blood sugars ACCU-CHEK ROSA UZMA BLOOD GLUCOSE MONITORING SUPPL Inactive FLUVOXAMINE MALEATE 100 MG ORAL TABS Take 1/2 tab at noon FLUVOXAMINE MALEATE 100 MG ORAL TABS 416538 FLUVOXAMINE MALEATE Inactive FLUVOXAMINE MALEATE 100 MG TABS Take one (1) tablet by mouth am, 1/2 at noon FLUVOXAMINE MALEATE 100 MG TABS 102072 FLUVOXAMINE MALEATE Inactive BACTROBAN 2 % CREAM Apply to affected area BID for up to 10 days BACTROBAN 2 % CREAM 254330 MUPIROCIN CALCIUM Inactive NOVOFINE 32G X 6 MM MISC use one four times per day NOVOFINE 32G X 6 MM MISC INSULIN PEN NEEDLE Inactive TRAZODONE HCL 100 MG ORAL TABS 1 tab by mouth for sleep TRAZODONE HCL 100 MG ORAL TABS 218425 TRAZODONE HCL Inactive LOVAZA 1 GM CAPS 4 daily (for triglycerides) LOVAZA 1 GM CAPS 902306 BGNVT-5-VIAZ ETHYL ESTERS Inactive METFORMIN HCL ER 500 MG JQ72E-ZIQ Take three tablets by mouth everyday METFORMIN HCL ER 500 MG KI82W-TDZ METFORMIN HCL Inactive METOPROLOL SUCCINATE 100 MG WB10Y-WQE 1 by mouth daily for blood pressure METOPROLOL SUCCINATE 100 MG OW75M-RMQ METOPROLOL SUCCINATE Inactive AMITIZA 24 MCG ORAL CAPS Take one capsule BID for constipation. AMITIZA 24 MCG ORAL CAPS LUBIPROSTONE Inactive TOLTERODINE TARTRATE 2 MG TABS 1 pill twice daily, for bladder TOLTERODINE TARTRATE 2 MG TABS 322468 TOLTERODINE TARTRATE Inactive CEFDINIR 300 MG CAPS by mouth twice a day CEFDINIR 300 MG CAPS 318819 CEFDINIR Inactive AZITHROMYCIN 500 MG SOLR 1 po q day AZITHROMYCIN 500 MG SOLR 72514658540 AZITHROMYCIN Inactive AMOXICILLIN 500 MG CAPS 2 po BID x 10 days AMOXICILLIN 500 MG CAPS 315620 AMOXICILLIN Inactive PENICILLIN V POTASSIUM 500 MG TABS 1 pill by mouth three times daily PENICILLIN V POTASSIUM 500 MG TABS 581643 PENICILLIN V POTASSIUM Inactive KEFLEX 500 MG CAP 1 po BID x 7 days KEFLEX 500 MG CAP 406665 CEPHALEXIN Inactive Immunizations Vaccine Administration Date Value [...] Fluvirin, Fluarix, Agriflu(>=18 yo)) Fluzone (>3 yrs.) [[id number]] Influenza, seasonal, injectable pneumococcal immunization administered Pneumovax [...] pressure, diastolic - 8462-4 56 mm[Hg] BP garica blood pressure, systolic - 8480-6 87 mm[Hg] [...] MICROALBUMIN - Chemistry sodium, serum 137 mmol/L 916-802 4531/05/19 potassium, serum 5.2 mmol/L 3.5-5.2 chloride, serum [...] Panel - Chemistry sodium, serum 137 mmol/L 158-790 5435/10/12 potassium, serum 4.8 mmol/L 3.5-5.2 chloride, serum 102 mmol/L 98-107 carbon dioxide, venous blood 27.6 mmol/L 21.0-32.0 blood glucose 168 mg/dL 65-110 calcium, serum 9.0 mg/dL 8.5-10.1 urea nitrogen, blood 15 mg/dL 7-18 creatinine, serum 1.04 mg/dL 0.55-1.30 sodium, serum 138 mmol/L 373-319 6674/11/11 potassium, serum 4.7 mmol/L 3.5-5.2 chloride, serum [...] % 11.6-14.8 platelet count 252 10^3/MM^3 10*3/mm3 896-185 8032/10/12 leukocyte count, blood 5.8 10^3/MM^3 10*3/mm3 4.6-10.2 [...] 240 10^3/MM^3 10*3/mm3 142-424 Lab Report: Chlamydia/GC APTIMA/91393, HIV-1/2 Agn/Dominga/77024, RPR (DX) W ... - Chemistry hepatitis B surface antigen NON-REACTIVE NON-REACTIVE Lab Report: Chlamydia/GC APTIMA/07790, HIV-1/2 Agn/Dominga/43569, RPR (DX) W ... - Lab chlamydia DNA probe NOT DETECTED NOT DETECTED Lab Report: Chlamydia/GC APTIMA/09661, HIV-1/2 Agn/Dominga/51218, RPR (DX) W ... - Microbiology Neisseria gonorrhoeae DNA probe NOT DETECTED NOT DETECTED Lab Report: Chlamydia/GC APTIMA/01187, HIV-1/2 Agn/Dominga/02552, RPR (DX) W ... - Serology rapid plasma reagin antibody titer NON-REACTIVE NON-REACTIVE Lab Report: HGBA1C - Chemistry hemoglobin A1C, blood, as % of total hemoglobin 6.1 % 4.3-6.0 hemoglobin A1C, blood, as % of total hemoglobin 6.3 % 4.3-6.0 Lab Report: Lipid Panel, HEPATIC PANEL, MICROALBUMIN, CBC - Chemistry cholesterol, serum 131 mg/dL 023-361 5344/06/03 triglyceride, serum, fasting 383 mg/dL 30-200 HDL [...] 4.7 mg/dL 2.6-7.2 cholesterol, serum 142 mg/dL 893-997 2401/06/26 triglyceride, serum, fasting 272 mg/dL 30-200 HDL [...] negative Encounters Code Encounter Date Provider Facility CPT-50627 Level 3 Est. Patient 14:39:00 OUTREACH TEAM MEMBER Vanessa Hickey MD [facility]-79246 Level 2 Est. Patient 18:43:34 CDT Mima Erazo [facility] CPT-57911 Level 3 Est. Patient 16:22:09 CDT Cherelle Avila [facility] CPT-33537 Level 4 Est. Patient 17:55:14 CDT Mima Jeffliudmila [facility] CPT-21180 Level 2 Est. Patient 17:13:21 CDT Alina Castaneda MD [facility] CPT-44866 Level 3 Est. Patient 14:46:15 CDT Vanessa Hickey MD [facility]-13061 Level 3 Est. Patient 09:34:56 CDT Alina Castaneda MD [facility]37354 Level 3 Est. Patient 21:40:19 CDT Mima Erazo [facility] CPT-33853 Level 3 Est. Patient 09:26:40 CDT Marvel Charles [facility]-85500 Level 3 Est. Patient 12:36:43 CDT Vanessa Hickey MD [facility]65792 Level 3 Est. Patient 12:57:49 CDT Vanessa Hickey MD [facility]08888 Level 3 Est. Patient 00:28:25 CDT Alina Castaneda MD [facility]69265 Level 2 Est. Patient 12:52:14 CDT Alina Castaneda MD [facility]44768 Level 3 Est. Patient 11:51:18 OUTREACH TEAM MEMBER Alina Castaneda MD [facility]-21687 Level 3 Est. Patient 10:09:22 OUTREACH TEAM MEMBER Alina Castaneda MD [facility]80433 Level 3 Est. Patient 14:36:26 OUTREACH TEAM MEMBER Marvel Charles [facility]38806 Level 3 Est. Patient 13:34:47 OUTREACH TEAM MEMBER Alina Castaneda MD [facility]99125 Level 3 Est. Patient 19:52:08 OUTREACH TEAM MEMBER Alina Castaneda MD [facility]12983 Level 3 Est. Patient 10:01:51 OUTREACH TEAM MEMBER Marvel Charles [facility]-66180 Level 3 Est. Patient 21:54:06 CDT Vanessa Hickey MD [facility]-44379 Level 3 Est. Patient 08:54:46 CDT Alina Castaneda MD [facility]05335 Level 3 Est. Patient 09:32:11 CDT Marvel Charles [facility]16007 Level 3 Est. Patient 12:02:49 CDT Alina Castaneda MD [facility]39503 Level 3 Est. Patient 19:17:33 CDT Alina Castaneda MD [facility]17821 Level 3 Est. Patient 13:19:10 CDT Marvel Charles [facility]08229 Level 3 Est. Patient 08:20:05 CDT Alina Castaneda MD [place] [address] Level 3 Est. Patient 15:17:18 CDT Alina Castaneda MD [facility]85257 Level 3 Est. Patient 14:25:36 OUTREACH TEAM MEMBER Marvel Charles [facility] CPT-58676 Level 3 Est. Patient 10:09:15 OUTREACH TEAM MEMBER Marvel Charles [facility]-21038 Level 3 Est. Patient 21:28:43 CDT Alina Castaneda MD [facility]-66135 Level 3 Est. Patient 15:20:11 CDT [place] Charles [facility]-24160 Level 4 Est. Patient 19:08:12 CDT Alina Castaneda MD [facility]-38065 Level 3 Est. Patient 15:06:39 CDT [place] [facility] Est[facility] Patient 17:48:15 CDT Alina Castaneda MD [facility]-46184 Level 3 Est. Patient 14:53:49 CDT Alina Castaneda MD [facility]-36924 Level 3 Est. Patient 09:35:16 CDT Alina Castaneda MD [facility]-84364 Level 3 Est. Patient 12:23:22 CDT Alina Castaneda MD [facility]-06799 Level 3 Est. Patient 16:19:15 CDT Alina Castaneda MD [facility]-61698 Level 3 Est. Patient 21:39:56 OUTREACH TEAM MEMBER Alina Castaneda MD [facility]-28627 Level 4 Est. Patient 14:12:56 OUTREACH TEAM MEMBER Alina Castaneda MD [facility]-07506 Level 2 Est. Patient 15:34:57 OUTREACH TEAM MEMBER Alina Castaneda MD [facility]-13798 Level 3 Est. Patient 12:17:04 OUTREACH TEAM MEMBER Alina Castaneda MD [facility] [id number] Level 3 Est. Patient 09:18:18 OUTREACH TEAM MEMBER [employer] Araceli [facility]-71820 Level 2 Est. Patient 21:50:24 CDT Alina Castaneda MD [facility]91153 Level 3 Est. Patient 09:17:28 CDT Marvel Charles [facility]-73575 Level 4 Est. Patient 18:54:02 CDT Alina Castaneda MD [facility]32997 Level 3 Est. Patient 10:47:10 CDT Alina Castaneda MD [facility]10409 Level 3 Est. Patient 09:22:20 CDT [place] Araceli [facility]-05264 Level 3 Est. Patient 16:39:43 CDT [place] Araceli [facility]-92030 Level 3 Est. Patient 16:05:16 CDT Alina Csataneda MD [facility]42667 Level 3 Est. Patient 00:29:15 CDT Alina Castaneda MD [facility]25191 Level 3 Est. Patient 10:49:22 OUTREACH TEAM MEMBER [employer] Araceli [facility]00897 Level 3 Est. Patient 21:30:19 OUTREACH TEAM MEMBER Alina Castaneda MD [facility]03596 Level 4 Est. Patient 17:04:11 OUTREACH TEAM MEMBER Marvel Charles [facility]88120 Level 3 Est. Patient 15:34:11 OUTREACH TEAM MEMBER [place] Araceli [facility]46503 Level 2 Est. Patient 12:51:58 OUTREACH TEAM MEMBER Alina Castaneda MD PhD [facility] CPT-38908 Level 3 Est. Patient 13:20:01 OUTREACH TEAM MEMBER Alina Castaneda MD PhD [facility] CPT-97112 Level 3 Est. Patient 09:23:35 CDT Alina Castaneda MD PhD [facility] Procedures Code Procedure Name Date Entry Date Standard Description CPT-54491 Bladder Scan 14:39:01 OUTREACH TEAM MEMBER CPT-TCMM Transitional Care Mgmt-Moderate 10:30:19 OUTREACH TEAM MEMBER CPT-80372 Bladder Scan 12:36:44 CDT CPT-29787 Bladder Scan 21:54:06 CDT CPT-G0008 Administration of Influenza Virus Vaccine 13:05:26 CDT CPT-55982 Fluzone Quadrivalent Intramuscular Suspension 0.5 ML 13: 05:26 CDT CPT-85032 Administration single or combination vaccine inc oral 11 :49:51 CDT CPT-65095 Pneumovax 11:49:51 CDT CPT-39287 Ribs unilateral 2V 12:37:22 OUTREACH TEAM MEMBER CPT-38085 Chest 2V Frontal and Lat 17:15:26 CDT CPT-75458 Abx/Therapy Injection 18:54:02 CDT CPT-J0696 Rocephin 1000 mg (Ceftriaxone) 16:00:32 CDT CPT-00985 Chest 2V Frontal and Lat 15:26:45 CDT CPT-68788 Chest 2V Frontal and Lat 10:23:27 CDT CPT-29941 Venipuncture Draw Fee 10:11:00 CDT CPT-73548 Administration single or combination vaccine inc oral 11 :56:38 CDT CPT-40573 Influenza split virus > age 3 11:56:38 CDT CPT-32415 Venipuncture Draw Fee 08:49:54 OUTREACH TEAM MEMBER CPT-82236 EKG Trac and Interp 17:54:19 OUTREACH TEAM MEMBER
--- OUTSIDE RECORDS SUMMARY | 2018-07-02 15:38 | XMS REPORT | Clinical Summary ---
Author Author Admin, TERELL Organization [facility] Address Unknown Phone Unavailable Allergies, Adverse Reactions, 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 Erazo LAUNDRY WORKER Benign paroxysmal positional vertigo Vertigo, benign paroxysmal position 386.11 Inactive Mima Erazo [employer]UNDR[employer] WORKER Benign paroxysmal positional vertigo High-risk sexual behavior V69.2 Active Alina Castaneda MD PhD High-risk sexual behavior Erectile dysfunction 302.72 Active Alina Castaneda MD PhD Psychosexual dysfunction with inhibited sexual excitement Constipation 564.00 Active Alina Castaneda MD PhD Constipation, unspecified Skin lesion 709.9 Active Alina Castaneda MD PhD Unspecified disorder of skin and subcutaneous tissue Malaise and fatigue 780.79 Active Cherelle Speaks LAUNDRY WORKER Other malaise and fatigue Diarrhea 787.91 Active Cherelle Speaks LAUNDRY WORKER Diarrhea PHARYNGITIS 462 Active Cherelle Speaks LAUNDRY WORKER Acute pharyngitis Colitis 558.9 Active Mima Erazo LAUNDRY WORKER Other and unspecified noninfectious gastroenteritis and colitis WOUND, OPEN, NOSE ICD-873.20 Inactive Alina Castaneda MD PhD DIABETES, TYPE 2 ICD-250.00 Inactive Alina Castaneda MD PhD HYPERTENSION ICD-401.9 Inactive Alina Castaneda MD PhD URI ICD-465.9 Inactive Alina Castaneda MD PhD CHEST PAIN ICD-786.50 Inactive Alina Castaneda MD PhD FH STROKE ICD-V17.1 Inactive Marvel Charles HISTOLOGY SUPERVISOR FATIGUE ICD-780.79 Inactive Alina Castaneda MD [...] x 1 week then daily FLUTICASONE PROPIONATE 35326483870 Active Mima Erazo LAUNDRY WORKER Active BD PEN NEEDLE MINI U/F 31G X 5 MM MISC 4 a day INSULIN PEN NEEDLE 83141056194 Active Marvel Mackenzieglestela HISTOLOGY SUPERVISOR Active AMITIZA 24 MCG ORAL CAPS Take one capsule BID for constipation LUBIPROSTONE 98301563603 Active Mima Erazo LAUNDRY WORKER Active LEVEMIR FLEXTOUCH 100 UNIT/ML SC SOPN 75 units SQ each evening, for diabetes INSULIN DETEMIR 62176836212 Active CRYSTAL Rodrigues Active TRUEPLUS LANCETS 30G MISC 3 a day LANCETS 05185935376 Active Marvel MARROQUIN Active TOLTERODINE TARTRATE 2 MG TABS 1 pill twice daily, for bladder TOLTERODINE TARTRATE 55531771510 No Longer Active Vanessa Hickey MD Active AMITIZA 24 MCG ORAL CAPS Take one capsule BID for constipation. LUBIPROSTONE 00008675974 No Longer Active Vanessa Hickey MD Active LOMOTIL 2.5-0.025 MG ORAL TABS take 1-2 tabs PO after each stool, no more than 8 in 24 hours DIPHENOXYLATE-ATROPINE 91378633125 Active Grace Azam RMA Active FLUVOXAMINE MALEATE 100 MG ORAL TABS take one tab every AM et HS, and take 1/ 2 tab at noon FLUVOXAMINE MALEATE 41859756968 Active Grace Azam RMA Active METOPROLOL SUCCINATE 100 MG [id number]-SZK 1 by mouth daily for blood pressure METOPROLOL SUCCINATE 84391680168 No Longer Active Grace Azam RMA Active METFORMIN HCL ER 500 MG [id number]-PGX Take three tablets by mouth everyday METFORMIN HCL 92865376246 No Longer Active Grace Azam RMA Active LOVAZA 1 GM CAPS 4 daily (for triglycerides) OMEGA-3- ACID ETHYL ESTERS 31327480903 No Longer Active Grace Azam RMA Active TRAZODONE HCL 100 MG ORAL TABS 1 tab by mouth for sleep TRAZODONE HCL 61270085823 No Longer Active Grace Azam RMA Active NOVOFINE 32G X 6 MM MISC use one four times per day INSULIN PEN NEEDLE 60245066370 No Longer Active Grace Azam RMA Active BACTROBAN 2 % CREAM Apply to affected area BID for up to 10 days MUPIROCIN CALCIUM 89720415594 No Longer Active Grace Azam RMA Active ZOFRAN 4 MG TABS 1 po q4hr PRN [place]ause[place] ONDANSETRON HCL 57209898188 Active Salina Ervinford RMA Active KEFLEX 500 MG CAP 1 po BID x 7 days CEPHALEXIN 98492657475 No Longer Active Cherelle Avila LAUNDRY WORKER Active FLUVOXAMINE MALEATE 100 MG TABS Take one (1) tablet by mouth am, 1/2 at noon FLUVOXAMINE MALEATE 68539107523 No Longer Active Mima Erazo LAUNDRY WORKER Active CORICIDIN HBP CONGESTION/COUGH 10-200 MG ORAL CAPS Take as directed on box as needed for cold/flu symptoms DEXTROMETHORPHAN-GUAIFENESIN 96653076200 Active Cherelle Avila LAUNDRY WORKER Active OMEGA-3 300 MG ORAL CAPS 4 caps by mouth daily OMEGA-3 FATTY ACIDS 36167758532 Active Mima Erazo LAUNDRY WORKER Active FLUVOXAMINE MALEATE 100 MG ORAL TABS Take 1/2 tab at noon FLUVOXAMINE MALEATE 25310151222 No Longer Active Cherelle Avila LAUNDRY WORKER Active [facility] LUBRICANT EYE DROPS 0.4-0.3 % OPHTH SOLN POLYETHYL GLYCOL-PROPYL GLYCOL 88034052650 Active Mima Erazo LAUNDRY WORKER Active CLONAZEPAM 1 MG TABS 1/2 pill by mouth three times daily CLONAZEPAM 95889592103 Active Alina Castaneda MD PhD Active MIRALAX POWD 17g by mouth daily, for constipation POLYETHYLENE GLYCOL 3350 96390921810 Active Alina Castaneda MD PhD Active HYDROCODONE-ACETAMINOPHEN 5-325 MG TABS 2 tabs by mouth three times daily for pain HYDROCODONE-ACETAMINOPHEN 28810135446 Active Mima Erazo LAUNDRY WORKER Active HUMALOG KWIKPEN 100 UNIT/ML SC SOPN 20 units with breakfast, 10 units with lunch, 10 units with dinner, for diabetes INSULIN LISPRO (HUMAN ) 91037734935 Active Alina Castaneda MD PhD Active LATUDA 120 MG ORAL TABS 1 pill by mouth nightly LURASIDONE HCL 78599038719 Active Alina Castaneda MD PhD Active COLACE 100 MG CAPS 1 pill by mouth twice daily, for constipation DOCUSATE SODIUM 03130097165 Active Alina Castaneda MD PhD Active TRUETEST TEST STRP check blood sugars 3x/day GLUCOSE BLOOD 94605405097 Active Marvel MARROQUIN Active ACCU-CHEK ROSA UZMA Use device to check blood sugars BLOOD GLUCOSE MONITORING SUPPL 10464699262 No Longer Active Marvel MARROQUIN Active ACCU-CHEK ROSA INVITR STRP use strips with device to check blood sugars 3 times daily GLUCOSE BLOOD 90436143204 No Longer Active Marvel MARROQUIN Active VERAPAMIL HCL ER 180 MG ORAL CR-TABS 1 pill by mouth twice daily, for migraine prevention VERAPAMIL HCL 42922672974 Active Alina Castaneda MD PhD Active CYCLOBENZAPRINE HCL 10 MG TABS 1 tablet by mouth three times daily, scheduled CYCLOBENZAPRINE HCL 96119262129 No Longer Active Alina Castaneda MD PhD Active HUMALOG 100 UNIT/ML SOLN Take 20 units with breakfast, 10u with lunch and suppetr. INSULIN LISPRO (HUMAN) 51056632049 No Longer Active Alina Castaneda MD PhD Active TRUETEST TEST STRP check sugars 4x/day GLUCOSE BLOOD 93781868359 No Longer Active Alina Castaneda MD PhD Active MORPHINE SULFATE 30 MG TABS 1 pill by mouth twice daily, for pain MORPHINE SULFATE 84910149833 Active Mima Erazo LAUNDRY WORKER Active ACYCLOVIR 400 MG ORAL TABS 1 pill three times daily x 5 days, for cold sore outbreak ACYCLOVIR 07927606508 No Longer Active Alina Castaneda MD PhD Active PENICILLIN V POTASSIUM 500 MG TABS 1 pill by mouth three times daily PENICILLIN V POTASSIUM 41568897920 No Longer Active Alina Castaneda MD PhD Active UROXATRAL 10 MG [id number]-[id number] Take 1 tablet by mouth daily ALFUZOSIN HCL 69554247597 No Longer Active Alina Castaneda MD PhD Active THIOTHIXENE 5 MG CAPS by mouth twice a day THIOTHIXENE 80584772811 No Longer Active Alina Castaneda MD PhD Active ZYPREXA 7.5 MG TABS 1 at HS OLANZAPINE 61894335545 No Longer Active Alina Castaneda MD PhD Active BD INSULIN SYRINGE 28G X 1/2" 1 ML MISC 1 four times per day INSULIN SYRINGE-NEEDLE U-100 01524020833 Active Marvel MARROQUIN Active DETROL LA 4 MG PR88Z-TBD Take 1 tablet by mouth daily TOLTERODINE TARTRATE 49680160418 No Longer Active Alina Castaneda MD PhD Active TERESE CONTOUR TEST STRP monitor blood sugars 3x/day GLUCOSE BLOOD 22030609744 No Longer Active Alina Castaneda MD PhD Active EQL TRUETEST TEST STRP Test blood sugar TID GLUCOSE BLOOD 48355161017 No Longer Active Alina Castaneda MD PhD Active FLUTICASONE PROPIONATE 50 MCG/ACT SUSP 2 sprays each nostril qDay x 30 days FLUTICASONE PROPIONATE 89967111149 No Longer Active Alina Castaneda MD PhD Active IBUPROFEN 200 MG TABS 1 Q 6 hr. PRN IBUPROFEN 97371353822 No Longer Active Alina Castaneda MD PhD Active NIACIN ER 500 MG CR-TABS 4 qHS (for triglycerides) NIACIN 62119952826 No Longer Active Alina Castaneda MD PhD Active ALFUZOSIN HCL ER 10 MG [id number] 1 tablet daily ALFUZOSIN HCL 98154623996 Active Vanessa Hickey MD Active SAPHRIS 5 MG SUBL by mouth twice a day ASENAPINE MALEATE 87728522032 No Longer Active Marvel MARROQUIN Active ACETAMINOPHEN 500 MG TABS 2 Q 6 hr. PRN ACETAMINOPHEN 76026414834 No Longer Active Marvel MARROQUIN Active ORPHENADRINE CITRATE ER 100 MG [id number]-WFD 1 every 12 hr. as needed ORPHENADRINE CITRATE 35337071329 No Longer Active Alina Castaneda MD PhD Active NIACIN CR 500 MG CR-TABS 2 qHS NIACIN 86546195946 No Longer Active Alina Castaneda MD PhD Active AMOXICILLIN 500 MG CAPS 2 po BID x 10 days AMOXICILLIN 71470536046 No Longer Active Alina Castaneda MD PhD Active HYDROCODONE-ACETAMINOPHEN 7.5-325 MG TABS 1 four times a day as needed for pain HYDROCODONE-ACETAMINOPHEN 20408905116 No Longer Active Alina Castaneda MD PhD Active DOXEPIN HCL 10 MG CAPS Take 1 tablet by mouth daily DOXEPIN HCL 93197628948 No Longer Active Salina Han A Active NAVANE 10 MG CAPS 1/2 tablet twice a day THIOTHIXENE No Longer Active Salina Han A Active CYCLOBENZAPRINE HCL 10 MG TABS 1/2 tablet by mouth every 8 hours as needed for muscle spasms CYCLOBENZAPRINE HCL 31661998331 No Longer Active Alina Castaneda MD PhD Active BACTROBAN 2 % CREAM apply to ear and nose twice daily MUPIROCIN CALCIUM 79393901570 No Longer Active Alina Castaneda MD PhD Active HYDROCODONE-ACETAMINOPHEN 5-325 MG TABS take one tablet by mouth every four hours as needed for pain HYDROCODONE-ACETAMINOPHEN 73595540696 No Longer Active Alina Castaneda MD PhD Active ZOLPIDEM TARTRATE 10 MG TABS take at bedtime ZOLPIDEM TARTRATE 94524570543 Active Alina Castaneda MD PhD Active ZYPREXA 5 MG TABS take one tablet by mouth every evening OLANZAPINE 30248487263 No Longer Active Alina Castaneda MD PhD Active ALBUTEROL SULFATE 0.083 % NEBU SOLN one vial per nebulizer TID and PRN cough/ soa ALBUTEROL SULFATE 37662480029 No Longer Active Alina Castaneda MD PhD Active GUAIFENESIN 600 MG [id number] 1 tablet by mouth twice daily if needed for cough GUAIFENESIN 01368611721 No Longer Active Marvel MARROQUIN Active AZITHROMYCIN 500 MG SOLR 1 po q day AZITHROMYCIN 96559994823 No Longer Active Alina Castaneda MD PhD Active PROMETHAZINE-CODEINE 6.25-10 MG/5ML SYRP 1 tsp po q 6 hours prn cough PROMETHAZINE-CODEINE 39591465122 No Longer Active Alina Castaneda MD PhD Active CEFDINIR 300 MG CAPS by mouth twice a day CEFDINIR 87862815722 No Longer Active Alina Castaneda MD PhD Active METFORMIN HCL 500 MG TM61F-ZQS Take 3 tablets by mouth everyday METFORMIN HCL 79325041848 No Longer Active Alina Castaneda MD PhD Active LEVEMIR 100 UNIT/ML SOLN 90 units SQ qHS INSULIN DETEMIR 74814990583 No Longer Active Marvel MARROQUIN Active TOPROL XL 100 MG QX86N-AQL 1 @ HS METOPROLOL SUCCINATE 92449420827 No Longer Active Marvel MARROQUIN Active ALLOPURINOL 300 MG TABS Take one by mouth daily ALLOPURINOL 78390132286 Active Mima Aguilarliudmila LAUNDRY WORKER Active ZYPREXA 10 MG TABS Take one by mouth daily OLANZAPINE 13758907853 No Longer Active Alina Castaneda MD PhD Active NOVOLOG 100 UNIT/ML SOLN 40 units with every meal INSULIN ASPART 62669926622 No Longer Active Alina Castaneda MD PhD Active VERAPAMIL HCL CR 120 MG TAB CR 1 qPM VERAPAMIL HCL 73321657155 No Longer Active Salina Emely ROJAS Active ZYPREXA 15 MG TABS Take 1 tablet by mouth daily OLANZAPINE 64368400910 No Longer Active Marvel MARROQUIN Active LISINOPRIL 20 MG TABS 1 BID LISINOPRIL 99988530198 Active Alina Castaneda MD PhD Active ALBUTEROL SULFATE (2.5 MG/3ML) 0.083% NEBU 1 neb tid and prn cough ALBUTEROL SULFATE 27577130325 No Longer Active Alina Castaneda MD PhD Active TRAVATAN Z 0.004 % SOLN 1 gtt each eye daily TRAVOPROST 59980345462 Active CRYSTAL Suarez Active LANTUS 100 UNIT/ML SOLN 60 units sq q hs INSULIN GLARGINE 44674646649 No Longer Active CRYSTAL Suarez Active ALBUTEROL SULFATE (2.5 MG/3ML) 0.083% NEBU 1 neb tid and prn cough ALBUTEROL SULFATE (2.5 MG/3ML) 0.083% NEBU 665913 ALBUTEROL SULFATE Inactive ZYPREXA 15 MG TABS Take 1 tablet by mouth daily ZYPREXA 15 MG TABS 381130 OLANZAPINE Inactive VERAPAMIL HCL CR 120 MG TAB CR 1 qPM VERAPAMIL HCL CR 120 MG TAB CR VERAPAMIL HCL Inactive ZYPREXA 10 MG TABS Take one by mouth daily ZYPREXA 10 MG TABS 016580 OLANZAPINE Inactive TOPROL XL 100 MG [id number] 1 @ HS TOPROL XL 100 MG [id number]-GAH METOPROLOL SUCCINATE Inactive LEVEMIR 100 UNIT/ML SOLN 90 units SQ qHS LEVEMIR 100 UNIT/ML SOLN INSULIN DETEMIR Inactive PROMETHAZINE-CODEINE 6.25-10 MG/5ML SYRP 1 tsp po q 6 hours prn cough PROMETHAZINE-CODEINE 6.25-10 MG/5ML SYRP 426321 PROMETHAZINE- CODEINE Inactive GUAIFENESIN 600 MG [id number] 1 tablet by mouth twice daily if needed for cough GUAIFENESIN 600 MG [id number]-HUZ GUAIFENESIN Inactive ALBUTEROL SULFATE 0.083 % NEBU SOLN one vial per nebulizer TID and PRN cough/ soa ALBUTEROL SULFATE 0.083 % NEBU SOLN 602781 ALBUTEROL SULFATE Inactive ZYPREXA 5 MG TABS take one tablet by mouth every evening ZYPREXA 5 MG TABS 879603 OLANZAPINE Inactive HYDROCODONE-ACETAMINOPHEN 5-325 MG TABS take one tablet by mouth every four hours as needed for pain HYDROCODONE-ACETAMINOPHEN 5-325 MG TABS 560130 HYDROCODONE-ACETAMINOPHEN Inactive BACTROBAN 2 % CREAM apply to ear and nose twice daily BACTROBAN 2 % CREAM 168982 MUPIROCIN CALCIUM Inactive CYCLOBENZAPRINE HCL 10 MG TABS 1/2 tablet by mouth every 8 hours as needed for muscle spasms CYCLOBENZAPRINE HCL 10 MG TABS 716709 CYCLOBENZAPRINE HCL Inactive NAVANE 10 MG CAPS 1/2 tablet twice a day NAVANE 10 MG CAPS THIOTHIXENE Inactive DOXEPIN HCL 10 MG CAPS Take 1 tablet by mouth daily DOXEPIN HCL 10 MG CAPS 8787214 DOXEPIN HCL Inactive HYDROCODONE-ACETAMINOPHEN 7.5-325 MG TABS 1 four times a day as needed for pain HYDROCODONE-ACETAMINOPHEN 7.5-325 MG TABS 649025 HYDROCODONE-ACETAMINOPHEN Inactive NIACIN CR 500 MG CR-TABS 2 qHS NIACIN CR 500 MG CR- TABS NIACIN Inactive ORPHENADRINE CITRATE ER 100 MG [id number] 1 every 12 hr. as needed ORPHENADRINE CITRATE ER 100 MG [id number] ORPHENADRINE CITRATE Inactive ACETAMINOPHEN 500 MG TABS 2 Q 6 hr. PRN ACETAMINOPHEN 500 MG TABS 157677 ACETAMINOPHEN Inactive SAPHRIS 5 MG SUBL by mouth twice a day SAPHRIS 5 MG SUBL ASENAPINE MALEATE Inactive NIACIN ER 500 MG CR-TABS 4 qHS (for triglycerides) NIACIN ER 500 MG CR-TABS NIACIN Inactive IBUPROFEN 200 MG TABS 1 Q 6 hr. PRN IBUPROFEN 200 MG TABS 237482 IBUPROFEN Inactive FLUTICASONE PROPIONATE 50 MCG/ACT SUSP 2 sprays each nostril qDay x 30 days FLUTICASONE PROPIONATE 50 MCG/ACT SUSP 581730 FLUTICASONE PROPIONATE Inactive EQL TRUETEST TEST STRP Test blood sugar TID EQL TRUETEST TEST STRP GLUCOSE BLOOD Inactive TERESE CONTOUR TEST STRP monitor blood sugars 3x/day TERESE CONTOUR TEST STRP GLUCOSE BLOOD Inactive DETROL LA 4 MG [id number]-JEI Take 1 tablet by mouth daily DETROL LA 4 MG IQ61I-UZS TOLTERODINE TARTRATE Inactive ZYPREXA 7.5 MG TABS 1 at HS ZYPREXA 7.5 MG TABS 277592 OLANZAPINE Inactive THIOTHIXENE 5 MG CAPS by mouth twice a day THIOTHIXENE 5 MG CAPS 145700 THIOTHIXENE Inactive UROXATRAL 10 MG SD80U-HSQ Take 1 tablet by mouth daily UROXATRAL 10 MG [id number]-XGW ALFUZOSIN HCL Inactive ACYCLOVIR 400 MG ORAL TABS 1 pill three times daily x 5 days, for cold sore outbreak ACYCLOVIR 400 MG ORAL TABS 405221 ACYCLOVIR Inactive TRUETEST TEST STRP check sugars 4x/day TRUETEST TEST STRP GLUCOSE BLOOD Inactive HUMALOG 100 UNIT/ML SOLN Take 20 units with breakfast, 10u with lunch and suppetr. HUMALOG 100 UNIT/ML SOLN INSULIN LISPRO ( HUMAN) Inactive CYCLOBENZAPRINE HCL 10 MG TABS 1 tablet by mouth three times daily, scheduled CYCLOBENZAPRINE HCL 10 MG TABS 212024 CYCLOBENZAPRINE HCL Inactive ACCU-CHEK ROSA INVITR STRP use strips with device to check blood sugars 3 times daily ACCU-CHEK ROSA INVITR STRP GLUCOSE BLOOD Inactive ACCU-CHEK ROSA UZMA Use device to check blood sugars ACCU-CHEK ROSA UZMA BLOOD GLUCOSE MONITORING SUPPL Inactive FLUVOXAMINE MALEATE 100 MG ORAL TABS Take 1/2 tab at noon FLUVOXAMINE MALEATE 100 MG ORAL TABS 537404 FLUVOXAMINE MALEATE Inactive FLUVOXAMINE MALEATE 100 MG TABS Take one (1) tablet by mouth am, 1/2 at noon FLUVOXAMINE MALEATE 100 MG TABS 346879 FLUVOXAMINE MALEATE Inactive BACTROBAN 2 % CREAM Apply to affected area BID for up to 10 days BACTROBAN 2 % CREAM 147827 MUPIROCIN CALCIUM Inactive NOVOFINE 32G X 6 MM MISC use one four times per day NOVOFINE 32G X 6 MM MISC INSULIN PEN NEEDLE Inactive TRAZODONE HCL 100 MG ORAL TABS 1 tab by mouth for sleep TRAZODONE HCL 100 MG ORAL TABS 678234 TRAZODONE HCL Inactive LOVAZA 1 GM CAPS 4 daily (for triglycerides) LOVAZA 1 GM CAPS 403365 FQGJK-1-WASG ETHYL ESTERS Inactive METFORMIN HCL ER 500 MG XK68L-RLE Take three tablets by mouth everyday METFORMIN HCL ER 500 MG [id number]-DDP METFORMIN HCL Inactive METOPROLOL SUCCINATE 100 MG RS75A-QMG 1 by mouth daily for blood pressure METOPROLOL SUCCINATE 100 MG LA92M-NBE METOPROLOL SUCCINATE Inactive AMITIZA 24 MCG ORAL CAPS Take one capsule BID for constipation. AMITIZA 24 MCG ORAL CAPS LUBIPROSTONE Inactive TOLTERODINE TARTRATE 2 MG TABS 1 pill twice daily, for bladder TOLTERODINE TARTRATE 2 MG TABS 747829 TOLTERODINE TARTRATE Inactive CEFDINIR 300 MG CAPS by mouth twice a day CEFDINIR 300 MG CAPS 605175 CEFDINIR Inactive AZITHROMYCIN 500 MG SOLR 1 po q day AZITHROMYCIN 500 MG SOLR 78058169373 AZITHROMYCIN Inactive AMOXICILLIN 500 MG CAPS 2 po BID x 10 days AMOXICILLIN 500 MG CAPS 356627 AMOXICILLIN Inactive PENICILLIN V POTASSIUM 500 MG TABS 1 pill by mouth three times daily PENICILLIN V POTASSIUM 500 MG TABS 330427 PENICILLIN V POTASSIUM Inactive KEFLEX 500 MG CAP 1 po BID x 7 days KEFLEX 500 MG CAP 422124 CEPHALEXIN Inactive Immunizations Vaccine Administration Date Value [...] Fluvirin, Fluarix, Agriflu(>=18 yo)) Fluzone (>3 yrs.) [[id number]] Influenza, seasonal, injectable pneumococcal immunization administered Pneumovax [...] Panel - Chemistry sodium, serum 137 mmol/L 913-364 1872/10/12 potassium, serum 4.8 mmol/L 3.5-5.2 chloride, serum 102 mmol/L 98-107 carbon dioxide, venous blood 27.6 mmol/L 21.0-32.0 blood glucose 168 mg/dL 65-110 calcium, serum 9.0 mg/dL 8.5-10.1 urea nitrogen, blood 15 mg/dL 7-18 creatinine, serum 1.04 mg/dL 0.55-1.30 sodium, serum 138 mmol/L 222-782 6528/11/11 potassium, serum 4.7 mmol/L 3.5-5.2 chloride, serum [...] % 11.6-14.8 platelet count 252 10^3/MM^3 10*3/mm3 066-371 9408/10/12 hemoglobin, blood 13.7 g/dL 13.5-17.5 hematocrit, blood 40.2 % 41.0-53.0 mean corpuscular volume, RBC 89 fL 80-97 mean corpuscular hemoglobin, RBC 30.1 pg 27.0-31.2 mean corpuscular hemoglobin concentration, RBC 34.0 G/DL % 31.8- 35.4 red blood cell distribution width 15.6 % 11.6-14.8 platelet count 240 10^3/MM^3 10*3/mm3 788-389 7984/11/11 neutrophils as percent of blood leukocytes 75.0 % 42.2-75.2 monocytes as percent of blood leukocytes 6.5 % 1.7-9.3 lymphocytes as percent of blood leukocytes 12.7 % 20.5-51.1 erythrocyte (RBC) count 4.33 10^6/MM^3 10*6/mm3 4.69-6.13 hemoglobin, blood 13.5 g/dL 13.5-17.5 Lab Report: Chlamydia/GC APTIMA/87684, HIV-1/2 Agn/Dominga/72853, RPR (DX) W ... - Chemistry hepatitis B surface antigen NON-REACTIVE NON-REACTIVE Lab Report: Chlamydia/GC APTIMA/43672, HIV-1/2 Agn/Dominga/43161, RPR (DX) W ... - Lab chlamydia DNA probe NOT DETECTED NOT DETECTED Lab Report: Chlamydia/GC APTIMA/35333, HIV-1/2 Agn/Dominga/95723, RPR (DX) W ... - Microbiology Neisseria gonorrhoeae DNA probe NOT DETECTED NOT DETECTED Lab Report: Chlamydia/GC APTIMA/15005, HIV-1/2 Agn/Dominga/97983, RPR (DX) W ... - Serology rapid plasma reagin antibody titer NON-REACTIVE NON-REACTIVE Lab Report: HGBA1C - Chemistry hemoglobin A1C, blood, as % of total hemoglobin 6.1 % 4.3-6.0 hemoglobin A1C, blood, as % of total hemoglobin 6.3 % 4.3-6.0 Lab Report: Lipid Panel, HEPATIC PANEL, MICROALBUMIN, CBC - Chemistry alanine aminotransferase (SGPT), serum 112 U/L 12-78 bilirubin, serum, total 0.30 mg/dL 0.00-1.00 aspartate aminotransferase (SGOT), serum 52 U/L 15-37 LDL cholesterol, serum 31 mg/dL 0-130 HDL cholesterol, serum 23 mg/dL 32-96 triglyceride, serum, fasting 383 mg/dL 30-200 cholesterol, serum 131 mg/dL 892-628 3372/06/03 albumin/creatinine ratio, urine < 30 mg/g mg/g{creat} [...] Acid - Chemistry cholesterol, serum 142 mg/dL 732-045 3661/06/26 albumin/creatinine ratio, urine < 30 mg/g mg/g{creat} 0-29 uric acid, serum 4.7 mg/dL 2.6-7.2 triglyceride, serum, fasting 272 mg/dL 30-200 HDL [...] negative Encounters Code Encounter Date Provider Facility [id number] Level 3 Est. Patient 14:39:00 SPRUE CUTTING PRESS OPERATOR Vanessa Hickey MD [facility]-27181 Level 2 Est. Patient 18:43:34 CDT Mima Erazo [facility]-91551 Level 3 Est. Patient 16:22:09 CDT Cherelle Avila [facility] CPT-32899 Level 4 Est. Patient 17:55:14 CDT Mima Erazo [facility] CPT-29177 Level 2 Est. Patient 17:13:21 CDT Alina Castaneda MD PhD [facility]-06069 Level 3 Est. Patient 14:46:15 CDT Vanessa Hickey MD [facility]52476 Level 3 Est. Patient 09:34:56 CDT Alina Castaneda MD PhD [facility]89937 Level 3 Est. Patient 21:40:19 CDT Mima Erazo [facility] CPT-40541 Level 3 Est. Patient 09:26:40 CDT Marvel MARROQUIN [facility]-15747 Level 3 Est. Patient 12:36:43 CDT Vanessa Hickey MD [facility]57692 Level 3 Est. Patient 12:57:49 CDT Vanessa Hickey MD [facility]56737 Level 3 Est. Patient 00:28:25 CDT Alina Castaneda MD [facility]-53106 Level 2 Est. Patient 12:52:14 CDT Alina Castaneda MD [facility]-27598 Level 3 Est. Patient 11:51:18 SPRUE CUTTING PRESS OPERATOR Alina Castaneda MD [facility] [place]-15688 Level 3 Est. Patient 10:09:22 SPRUE CUTTING PRESS OPERATOR Alina Castaneda MD [facility]-69853 Level 3 Est. Patient 14:36:26 SPRUE CUTTING PRESS OPERATOR Marvel Charles [facility] [place][note 2]-29970 Level 3 Est. Patient 13:34:47 SPRUE CUTTING PRESS OPERATOR Alina Castaneda MD [facility]58443 Level 3 Est. Patient 19:52:08 SPRUE CUTTING PRESS OPERATOR Alina Castaneda MD [facility] [place]-17943 Level 3 Est. Patient 10:01:51 SPRUE CUTTING PRESS OPERATOR Marvel Charles [facility] [place][note 2]-18424 Level 3 Est. Patient 21:54:06 CDT Vanessa Hickey MD [facility]-56023 Level 3 Est. Patient 08:54:46 CDT Alina Castaneda MD [facility] [place]-77931 Level 3 Est. Patient 09:32:11 CDT Marvel Charles [facility] [place][note 2]-34753 Level 3 Est. Patient 12:02:49 CDT Alina Castaneda MD [facility] [place]-85833 Level 3 Est. Patient 19:17:33 CDT Alina Castaneda MD [facility]26347 Level 3 Est. Patient 13:19:10 CDT Marvel Charles [facility] [place][note 2]-69009 Level 3 Est. Patient 08:20:05 CDT Alina Castaneda MD [facility]78137 Level 3 Est. Patient 15:17:18 CDT Alina Castaneda MD [facility] [place]-16264 Level 3 Est. Patient 14:25:36 SPRUE CUTTING PRESS OPERATOR Marvel Charles [facility] CPT-29515 Level 3 Est. Patient 10:09:15 SPRUE CUTTING PRESS OPERATOR Marvel Charles [facility] CPT-42109 Level 3 Est. Patient 21:28:43 CDT Alina Castaneda MD [facility] [place]-33755 Level 3 Est. Patient 15:20:11 [facility]05272 Level 4 Est. Patient 19:08:12 CDT Alina Castaneda MD [facility] [place]-67314 Level 3 Est. Patient 15:06:39 CDT Marvel Charles [facility] CPT-28913 Level 4 Est. Patient 17:48:15 CDT Alina Castaneda MD [facility] [place]-45560 Level 3 Est. Patient 14:53:49 CDT Alina Castaneda MD [facility] CPT-86008 Level 3 Est. Patient 09:35:16 CDT Alina Castaneda MD [facility] CPT-12213 Level 3 Est. Patient 12:23:22 CDT Alina Castaneda MD [facility] CPT-07531 Level 3 Est. Patient 16:19:15 CDT Alina Castaneda MD [facility] [place]-96438 Level 3 Est. Patient 21:39:56 SPRUE CUTTING PRESS OPERATOR Alina Castaneda MD [facility] [place]-34130 Level 4 Est. Patient 14:12:56 SPRUE CUTTING PRESS OPERATOR Alina Castaneda MD [facility] [place]-10325 Level 2 Est. Patient 15:34:57 SPRUE CUTTING PRESS OPERATOR Alina Castaneda MD [facility] [place]-56207 Level 3 Est. 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 Patient 21:50:24 CDT Alina Castaneda MD [facility]36367 Level 3 Est. Patient 09:17:28 CDT Marvel Charles [facility] [place][note 2]-51024 Level 4 Est. Patient 18:54:02 CDT Alina Castaneda MD [facility]49546 Level 3 Est. Patient 10:47:10 CDT Alina Castaneda MD [facility]16352 Level 3 Est. Patient 09:22:20 CDT Marvel Charles [facility] [place][note 2]-33010 Level 3 Est. Patient 16:39:43 CDT Marvel Charles [facility] [place][note 2]-93733 Level 3 Est. Patient 16:05:16 CDT Alina Castaneda MD [facility] [place]-12762 Level 3 Est. Patient 00:29:15 CDT Alina Castaneda MD [facility]31238 Level 3 Est. Patient 10:49:22 SPRUE CUTTING PRESS OPERATOR [facility]74976 Level 3 Est. Patient 21:30:19 SPRUE CUTTING PRESS OPERATOR Alina Castaneda MD [facility]19344 Level 4 Est. Patient 17:04:11 SPRUE CUTTING PRESS OPERATOR Marvel Charles [facility] CPT-18343 Level 3 Est. Patient 15:34:11 SPRUE CUTTING PRESS OPERATOR Marvel Charles [facility] CPT-52678 Level 2 Est. Patient 12:51:58 SPRUE CUTTING PRESS OPERATOR Alina Castaneda MD PhD [facility] CPT-60074 Level 3 Est. Patient 13:20:01 SPRUE CUTTING PRESS OPERATOR Alina Castaneda MD PhD [facility] CPT-27727 Level 3 Est. Patient 09:23:35 CDT Alina Castaneda MD PhD [facility] Procedures Code Procedure Name Date Entry Date Standard Description CPT-13283 Bladder Scan 14:39:01 SPRUE CUTTING PRESS OPERATOR CPT-TCMM Transitional Care Mgmt-Moderate 10:30:19 SPRUE CUTTING PRESS OPERATOR CPT-45496 Bladder Scan 12:36:44 CDT CPT-12998 Bladder Scan 21:54:06 CDT CPT-G0008 Administration of Influenza Virus Vaccine 13:05:26 CDT CPT-37078 Fluzone Quadrivalent Intramuscular Suspension 0.5 ML 13: 05:26 CDT CPT-53815 Administration single or combination vaccine inc oral 11 :49:51 CDT CPT-78017 Pneumovax 11:49:51 CDT CPT-85413 Ribs unilateral 2V 12:37:22 SPRUE CUTTING PRESS OPERATOR CPT-85186 Chest 2V Frontal and Lat 17:15:26 CDT CPT-00392 Abx/Therapy Injection 18:54:02 CDT CPT-J0696 Rocephin 1000 mg (Ceftriaxone) 16:00:32 CDT CPT-14335 Chest 2V Frontal and Lat 15:26:45 CDT CPT-22734 Chest 2V Frontal and Lat 10:23:27 CDT CPT-65869 Venipuncture Draw Fee 10:11:00 CDT CPT-83334 Administration single or combination vaccine inc oral 11 :56:38 CDT CPT-65137 Influenza split virus > age 3 11:56:38 CDT CPT-03581 Venipuncture Draw Fee 08:49:54 SPRUE CUTTING PRESS OPERATOR CPT-20994 EKG Trac and Interp 17:54:19 SPRUE CUTTING PRESS OPERATOR
--- OUTSIDE RECORDS SUMMARY | 2018-07-02 15:40 | XMS REPORT | Clinical Summary ---
Author Author Admin, TERELL Organization [facility] Address Unknown Phone Unavailable Allergies, [...] unspecified REACTIVE AIRWAY DISEASE 493.90 Active Alina Castaenda MD PhD Asthma, unspecified OBSESSIVE-COMPULSIVE DISORDER 300.3 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 Erazo POST MANAGER Benign paroxysmal positional vertigo Vertigo, benign [...] Unspecified disorder of skin and subcutaneous tissue WOUND, OPEN, NOSE ICD-873.20 Inactive Alina Castaneda [...] Name NDC Status Provider Patient Instruction [facility] LUBRICANT EYE DROPS 0.4-0.3 % OPHTH SOLN POLYETHYL GLYCOL-PROPYL GLYCOL 09187201256 Active Mima Fierroum POST MANAGER Active FLUVOXAMINE MALEATE 100 MG ORAL TABS Take 1/2 tab at noon FLUVOXAMINE MALEATE 40434801937 Active Mima Erazo POST MANAGER Active CLONAZEPAM 1 MG TABS 1/2 pill by mouth three times daily CLONAZEPAM 56701215957 Active Alina Castaneda MD PhD Active MIRALAX POWD 17g by mouth daily, for constipation POLYETHYLENE GLYCOL 3350 49199233993 Active Alina Castaneda MD PhD Active HYDROCODONE-ACETAMINOPHEN 5-325 MG TABS 2 tabs by mouth three times daily for pain HYDROCODONE-ACETAMINOPHEN 39774866315 Active Alina Castaneda MD PhD Active HUMALOG KWIKPEN 100 UNIT/ML SC SOPN 20 units with breakfast, 10 units with lunch, 10 units with dinner, for diabetes INSULIN LISPRO (HUMAN ) 02028126158 Active Alina Castaneda MD PhD Active LEVEMIR FLEXTOUCH 100 UNIT/ML SC SOPN 70 units SQ each evening, for diabetes INSULIN DETEMIR 72862569386 Active Alina Castaneda MD PhD Active LATUDA 120 MG ORAL TABS 1 pill by mouth nightly LURASIDONE HCL 65766477038 Active Alina Castaneda MD PhD Active COLACE 100 MG CAPS 1 pill by mouth twice daily, for constipation DOCUSATE SODIUM 47198771615 Active Alina Castaneda MD PhD Active TRUETEST TEST STRP check blood sugars 3x/day GLUCOSE BLOOD 02308116038 Active Marvel Charles REHABILITATION DIRECTOR Active ACCU-CHEK ROSA UZMA Use device to check blood sugars BLOOD GLUCOSE MONITORING SUPPL 41549046880 No Longer Active Maleh Ziglari REHABILITATION DIRECTOR Active ACCU-CHEK ROSA INVITR STRP use strips with device to check blood sugars 3 times daily GLUCOSE BLOOD 79908210082 No Longer Active Malnivia Mackenzieglari REHABILITATION DIRECTOR Active VERAPAMIL HCL ER 180 MG ORAL CR-TABS 1 pill by mouth twice daily, for migraine prevention VERAPAMIL HCL 36696122893 Active Alina Castaneda MD PhD Active CYCLOBENZAPRINE HCL 10 MG TABS 1 tablet by mouth three times daily, scheduled CYCLOBENZAPRINE HCL 65399638067 No Longer Active Alina Castaneda MD PhD Active HUMALOG 100 UNIT/ML SOLN Take 20 units with breakfast, 10u with lunch and suppetr. INSULIN LISPRO (HUMAN) 76702737142 No Longer Active Alina Castaneda MD PhD Active TRUETEST TEST STRP check sugars 4x/day GLUCOSE BLOOD 39552291470 No Longer Active Alina Castaneda MD PhD Active MORPHINE SULFATE 30 MG TABS 1 pill by mouth twice daily, for pain MORPHINE SULFATE 52369425897 Active Alina Castaneda MD PhD Active ACYCLOVIR 400 MG ORAL TABS 1 pill three times daily x 5 days, for cold sore outbreak ACYCLOVIR 99414508981 No Longer Active Alina Castaneda MD PhD Active PENICILLIN V POTASSIUM 500 MG TABS 1 pill by mouth three times daily PENICILLIN V POTASSIUM 53748565913 No Longer Active Alina Castaneda MD PhD Active UROXATRAL 10 MG [id number]-RGR Take 1 tablet by mouth daily ALFUZOSIN HCL 80423568086 No Longer Active Alina Castaneda MD PhD Active THIOTHIXENE 5 MG CAPS by mouth twice a day THIOTHIXENE 51558500681 No Longer Active Alina Castaneda MD PhD Active ZYPREXA 7.5 MG TABS 1 at HS OLANZAPINE 84687560463 No Longer Active Alina Castaneda MD PhD Active BD INSULIN SYRINGE 28G X 1/2" 1 ML MISC 1 four times per day INSULIN SYRINGE-NEEDLE U-100 96904705359 Active Marvel MENDOZAP Active TOLTERODINE TARTRATE 2 MG TABS 1 pill twice daily, for bladder TOLTERODINE TARTRATE 23173922230 Active Alina Castaneda MD PhD Active DETROL LA 4 MG [id number]-[id number] Take 1 tablet by mouth daily TOLTERODINE TARTRATE 36453448381 No Longer Active Alina Castaneda MD PhD Active TERESE CONTOUR TEST STRP monitor blood sugars 3x/day GLUCOSE BLOOD 61353817505 No Longer Active Alina Castaneda MD PhD Active EQL TRUETEST TEST STRP Test blood sugar TID GLUCOSE BLOOD 96610378935 No Longer Active Alina Castaneda MD PhD Active FLUTICASONE PROPIONATE 50 MCG/ACT SUSP 2 sprays each nostril qDay x 30 days FLUTICASONE PROPIONATE 59888783068 No Longer Active Alina Castaneda MD PhD Active IBUPROFEN 200 MG TABS 1 Q 6 hr. PRN IBUPROFEN 94671168683 No Longer Active Alina Castaneda MD PhD Active NIACIN ER 500 MG CR-TABS 4 qHS (for triglycerides) NIACIN 43611574020 No Longer Active Alina Castaneda MD PhD Active ALFUZOSIN HCL ER 10 MG [id number] 1 tablet daily ALFUZOSIN HCL 86832342921 Active Vanessa Hickey MD Active LOVAZA 1 GM CAPS 4 daily (for triglycerides) [id number] ETHYL ESTERS 94394168342 Active Alina Castaneda MD PhD Active SAPHRIS 5 MG SUBL by mouth twice a day ASENAPINE MALEATE 04384017677 No Longer Active Marvel MARROQUIN Active ACETAMINOPHEN 500 MG TABS 2 Q 6 hr. PRN ACETAMINOPHEN 43600889074 No Longer Active Marvel MARROQUIN Active ORPHENADRINE CITRATE ER 100 MG [id number]-[id number] 1 every 12 hr. as needed ORPHENADRINE CITRATE 68766553161 No Longer Active Alina Castaneda MD PhD Active NIACIN CR 500 MG CR-TABS 2 qHS NIACIN 96798654587 No Longer Active Alina Castaneda MD PhD Active AMOXICILLIN 500 MG CAPS 2 po BID x 10 days AMOXICILLIN 01667998363 No Longer Active Alina Castaneda MD PhD Active HYDROCODONE-ACETAMINOPHEN 7.5-325 MG TABS 1 four times a day as needed for pain HYDROCODONE-ACETAMINOPHEN 28708137233 No Longer Active Alina Castaneda MD PhD Active METFORMIN HCL ER 500 MG AQ80Y-EGX Take three tablets by mouth everyday METFORMIN HCL 11493522454 Active Maliheh Ziglari REHABILITATION DIRECTOR Active DOXEPIN HCL 10 MG CAPS Take 1 tablet by mouth daily DOXEPIN HCL 91748023418 No Longer Active Salina Han A Active NAVANE 10 MG CAPS 1/2 tablet twice a day THIOTHIXENE No Longer Active Salina Han [facility] Active CYCLOBENZAPRINE HCL 10 MG TABS 1/2 tablet by mouth every 8 hours as needed for muscle spasms CYCLOBENZAPRINE HCL 86997931279 No Longer Active Alina Castaneda MD PhD Active BACTROBAN 2 % CREAM apply to ear and nose twice daily MUPIROCIN CALCIUM 82787199262 No Longer Active Alina Castaneda MD PhD Active HYDROCODONE-ACETAMINOPHEN 5-325 MG TABS take one tablet by mouth every four hours as needed for pain HYDROCODONE-ACETAMINOPHEN 43436342625 No Longer Active Alina Castaneda MD PhD Active ZOLPIDEM TARTRATE 10 MG TABS take at bedtime ZOLPIDEM TARTRATE 53289243773 Active Alina Castaneda MD PhD Active ZYPREXA 5 MG TABS take one tablet by mouth every evening OLANZAPINE 56622155491 No Longer Active Alina Castaneda MD PhD Active ALBUTEROL SULFATE 0.083 % NEBU SOLN one vial per nebulizer TID and PRN cough/ soa ALBUTEROL SULFATE 84811338653 No Longer Active Alina Castaneda MD PhD Active GUAIFENESIN 600 MG FR50K-RFB 1 tablet by mouth twice daily if needed for cough GUAIFENESIN 19132590139 No Longer Active Marvel MARROQUIN Active AZITHROMYCIN 500 MG SOLR 1 po q day AZITHROMYCIN 81062834652 No Longer Active Alina Castaneda MD PhD Active METOPROLOL SUCCINATE 100 MG GK24E-EPG 1 by mouth daily for blood pressure METOPROLOL SUCCINATE 81044832406 Active Alina Castaneda MD PhD Active PROMETHAZINE-CODEINE 6.25-10 MG/5ML SYRP 1 tsp po q 6 hours prn cough PROMETHAZINE-CODEINE 10273011312 No Longer Active Alina Castaneda MD PhD Active CEFDINIR 300 MG CAPS by mouth twice a day CEFDINIR 51527185348 No Longer Active Alina Castaneda MD PhD Active METFORMIN HCL 500 MG JM30L-CDG Take 3 tablets by mouth everyday METFORMIN HCL 28570677667 No Longer Active Alina Castaneda MD PhD Active LEVEMIR 100 UNIT/ML SOLN 90 units SQ qHS INSULIN DETEMIR 91232231866 No Longer Active Marvel MARROQUIN Active TOPROL XL 100 MG RK53I-ZIG 1 @ HS METOPROLOL SUCCINATE 13448681569 No Longer Active Marvel MARROQUIN Active ALLOPURINOL 300 MG TABS Take one by mouth daily ALLOPURINOL 59096818082 Active Alina Castaneda MD PhD Active ZYPREXA 10 MG TABS Take one by mouth daily OLANZAPINE 17010890553 No Longer Active Alina Castaneda MD PhD Active NOVOLOG 100 UNIT/ML SOLN 40 units with every meal INSULIN ASPART 78796866638 No Longer Active Alina Castaneda MD PhD Active VERAPAMIL HCL CR 120 MG TAB CR 1 qPM VERAPAMIL HCL 02706275188 No Longer Active Salina Han [facility] Active ZYPREXA 15 MG TABS Take 1 tablet by mouth daily OLANZAPINE 75505395454 No Longer Active Marvel Thurstonestela MARROQUIN Active LISINOPRIL 20 MG TABS 1 BID LISINOPRIL 21457467166 Active Alina Castaneda MD PhD Active ALBUTEROL SULFATE (2.5 MG/3ML) 0.083% NEBU 1 neb tid and prn cough ALBUTEROL SULFATE 46427012932 No Longer Active Alina Castaneda MD PhD Active FLUVOXAMINE MALEATE 100 MG TABS Take one (1) tablet by mouth am, 05/25 at noon, 1 pm FLUVOXAMINE MALEATE 54496125459 Active Alina Castaneda MD PhD Active TRAVATAN Z 0.004 % SOLN 1 gtt each eye daily TRAVOPROST 09405850688 Active CRYSTAL Suarez Active LANTUS 100 UNIT/ML SOLN 60 units sq q hs INSULIN GLARGINE 20371095653 No Longer Active CRYSTAL Suarez Active ALBUTEROL SULFATE (2.5 MG/3ML) 0.083% NEBU 1 neb tid and prn cough ALBUTEROL SULFATE (2.5 MG/3ML) 0.083% NEBU 184397 ALBUTEROL SULFATE Inactive ZYPREXA 15 MG TABS Take 1 tablet by mouth daily ZYPREXA 15 MG TABS 661635 OLANZAPINE Inactive VERAPAMIL HCL CR 120 MG TAB CR 1 qPM VERAPAMIL HCL CR 120 MG TAB CR VERAPAMIL HCL Inactive ZYPREXA 10 MG TABS Take one by mouth daily ZYPREXA 10 MG TABS 499262 OLANZAPINE Inactive TOPROL XL 100 MG [id number] 1 @ HS TOPROL XL 100 MG KQ13A-UUM METOPROLOL SUCCINATE Inactive LEVEMIR 100 UNIT/ML SOLN 90 units SQ qHS LEVEMIR 100 UNIT/ML SOLN INSULIN DETEMIR Inactive PROMETHAZINE-CODEINE 6.25-10 MG/5ML SYRP 1 tsp po q 6 hours prn cough PROMETHAZINE-CODEINE 6.25-10 MG/5ML SYRP 871637 PROMETHAZINE- CODEINE Inactive GUAIFENESIN 600 MG RA13T-IMR 1 tablet by mouth twice daily if needed for cough GUAIFENESIN 600 MG [id number]-QOU GUAIFENESIN Inactive ALBUTEROL SULFATE 0.083 % NEBU SOLN one vial per nebulizer TID and PRN cough/ soa ALBUTEROL SULFATE 0.083 % NEBU SOLN 451397 ALBUTEROL SULFATE Inactive ZYPREXA 5 MG TABS take one tablet by mouth every evening ZYPREXA 5 MG TABS 295923 OLANZAPINE Inactive HYDROCODONE-ACETAMINOPHEN 5-325 MG TABS take one tablet by mouth every four hours as needed for pain HYDROCODONE-ACETAMINOPHEN 5-325 MG TABS 941446 HYDROCODONE-ACETAMINOPHEN Inactive BACTROBAN 2 % CREAM apply to ear and nose twice daily BACTROBAN 2 % CREAM 590225 MUPIROCIN CALCIUM Inactive CYCLOBENZAPRINE HCL 10 MG TABS 1/2 tablet by mouth every 8 hours as needed for muscle spasms CYCLOBENZAPRINE HCL 10 MG TABS 726877 CYCLOBENZAPRINE HCL Inactive NAVANE 10 MG CAPS 1/2 tablet twice a day NAVANE 10 MG CAPS THIOTHIXENE Inactive DOXEPIN HCL 10 MG CAPS Take 1 tablet by mouth daily DOXEPIN HCL 10 MG CAPS 1051350 DOXEPIN HCL Inactive HYDROCODONE-ACETAMINOPHEN 7.5-325 MG TABS 1 four times a day as needed for pain HYDROCODONE-ACETAMINOPHEN 7.5-325 MG TABS 167284 HYDROCODONE-ACETAMINOPHEN Inactive NIACIN CR 500 MG CR-TABS 2 qHS NIACIN CR 500 MG CR- TABS NIACIN Inactive ORPHENADRINE CITRATE ER 100 MG [id number] 1 every 12 hr. as needed ORPHENADRINE CITRATE ER 100 MG GE78A-ZFA ORPHENADRINE CITRATE Inactive ACETAMINOPHEN 500 MG TABS 2 Q 6 hr. PRN ACETAMINOPHEN 500 MG TABS 549321 ACETAMINOPHEN Inactive SAPHRIS 5 MG SUBL by mouth twice a day SAPHRIS 5 MG SUBL ASENAPINE MALEATE Inactive NIACIN ER 500 MG CR-TABS 4 qHS (for triglycerides) NIACIN ER 500 MG CR-TABS NIACIN Inactive IBUPROFEN 200 MG TABS 1 Q 6 hr. PRN IBUPROFEN 200 MG TABS 254160 IBUPROFEN Inactive FLUTICASONE PROPIONATE 50 MCG/ACT SUSP 2 sprays each nostril qDay x 30 days FLUTICASONE PROPIONATE 50 MCG/ACT SUSP 885845 FLUTICASONE PROPIONATE Inactive EQL TRUETEST TEST STRP Test blood sugar TID EQL TRUETEST TEST STRP GLUCOSE BLOOD Inactive TERESE CONTOUR TEST STRP monitor blood sugars 3x/day TERESE CONTOUR TEST STRP GLUCOSE BLOOD Inactive DETROL LA 4 MG JA59T-FQJ Take 1 tablet by mouth daily DETROL LA 4 MG QQ17Y-DEM TOLTERODINE TARTRATE Inactive ZYPREXA 7.5 MG TABS 1 at HS ZYPREXA 7.5 MG TABS 367504 OLANZAPINE Inactive THIOTHIXENE 5 MG CAPS by mouth twice a day THIOTHIXENE 5 MG CAPS 697323 THIOTHIXENE Inactive UROXATRAL 10 MG SH69W-QMG Take 1 tablet by mouth daily UROXATRAL 10 MG EG08Z-BML ALFUZOSIN HCL Inactive ACYCLOVIR 400 MG ORAL TABS 1 pill three times daily x 5 days, for cold sore outbreak ACYCLOVIR 400 MG ORAL TABS 837835 ACYCLOVIR Inactive TRUETEST TEST STRP check sugars 4x/day TRUETEST TEST STRP GLUCOSE BLOOD Inactive HUMALOG 100 UNIT/ML SOLN Take 20 units with breakfast, 10u with lunch and suppetr. HUMALOG 100 UNIT/ML SOLN INSULIN LISPRO ( HUMAN) Inactive CYCLOBENZAPRINE HCL 10 MG TABS 1 tablet by mouth three times daily, scheduled CYCLOBENZAPRINE HCL 10 MG TABS 004153 CYCLOBENZAPRINE HCL Inactive ACCU-CHEK ROSA INVITR STRP use strips with device to check blood sugars 3 times daily ACCU-CHEK ROSA INVITR STRP GLUCOSE BLOOD Inactive ACCU-CHEK ROSA UZMA Use device to check blood sugars ACCU-CHEK ROSA UZMA BLOOD GLUCOSE MONITORING SUPPL Inactive CEFDINIR 300 MG CAPS by mouth twice a day CEFDINIR 300 MG CAPS 153276 CEFDINIR Inactive AZITHROMYCIN 500 MG SOLR 1 po q day AZITHROMYCIN 500 MG SOLR 536241 AZITHROMYCIN Inactive AMOXICILLIN 500 MG CAPS 2 po BID x 10 days AMOXICILLIN 500 MG CAPS 353124 AMOXICILLIN Inactive PENICILLIN V POTASSIUM 500 MG TABS 1 pill by mouth three times daily PENICILLIN V POTASSIUM 500 MG TABS 545211 PENICILLIN V POTASSIUM Inactive Immunizations Vaccine Administration [...] Fluvirin, Fluarix, Agriflu(>=18 yo)) Fluzone (>3 yrs.) [XBW861] Influenza, seasonal, injectable pneumococcal immunization administered Pneumovax 23 [CVX33] pneumococcal polysaccharide vaccine, 23 valent Vital Signs Date Name Value Unit Range Description blood pressure, diastolic - 8462-4 70 mm[Hg] [...] HGBA1C - Chemistry sodium, serum 131 mmol/L 365-167 4335/12/30 potassium, serum 5.0 mmol/L 3.5-5.2 chloride, serum 95 mmol/L 98-107 carbon dioxide, venous blood 26.7 mmol/L 21.0-32.0 blood glucose 112 mg/dL 65-110 calcium, serum 9.2 mg/dL 8.5-10.1 urea nitrogen, blood 12 mg/dL 7-18 creatinine, serum 1.10 mg/dL 0.60-1.30 hemoglobin A1C, blood, as % of total hemoglobin 5.8 % 4.3-6.0 Lab Report: Basic Metabolic Panel, HGBA1C, MICROALBUMIN - Chemistry sodium, serum 137 mmol/L 444-330 9064/05/19 potassium, serum 5.2 mmol/L 3.5-5.2 chloride, serum [...] microalbumin, urine 10 0-19 Lab Report: Chlamydia/GC APTIMA/44281, HIV-1/2 Agn/Dominga/07889, RPR (DX) W ... - Chemistry hepatitis B surface antigen NON-REACTIVE NON-REACTIVE Lab Report: Chlamydia/GC APTIMA/65711, HIV-1/2 Agn/Dominga/31978, RPR (DX) W ... - Lab chlamydia DNA probe NOT DETECTED NOT DETECTED Lab Report: Chlamydia/GC APTIMA/78944, HIV-1/2 Agn/Dominga/39403, RPR (DX) W ... - Microbiology Neisseria gonorrhoeae DNA probe NOT DETECTED NOT DETECTED Lab Report: Chlamydia/GC APTIMA/44761, HIV-1/2 Agn/Dominga/34906, RPR (DX) W ... - Serology rapid plasma reagin antibody titer NON-REACTIVE NON-REACTIVE Lab Report: Comp. Metabolic Panel - Chemistry sodium, serum 127 mmol/L 258-856 5354/10/27 potassium, serum 4.1 mmol/L 3.5-5.2 chloride, serum [...] CBC - Chemistry cholesterol, serum 131 mg/dL 340-546 8631/06/03 triglyceride, serum, fasting 383 mg/dL 30-200 HDL [...] 4.7 mg/dL 2.6-7.2 cholesterol, serum 142 mg/dL 221-490 4059/06/26 triglyceride, serum, fasting 272 mg/dL 30-200 HDL [...] mg/dL Encounters Code Encounter Date Provider Facility CPT-39065 Level 2 Est. Patient 17:13:21 CDT Alina Castaneda MD [facility] CPT-15089 Level 3 Est. Patient 14:46:15 CDT Vanessa Hickey MD [facility]-43050 Level 3 Est. Patient 09:34:56 CDT Alina Castaneda MD [facility]-96321 Level 3 Est. Patient 21:40:19 CDT Mima Erazo ALBAN [facility] CPT-95901 Level 3 Est. Patient 09:26:40 CDT Marvel [facility]-80407 Level 3 Est. Patient 12:36:43 CDT Vanessa Hickey MD [facility]-57671 Level 3 Est. Patient 12:57:49 CDT Vanessa Hickey MD [facility]-32284 Level 3 Est. Patient 00:28:25 CDT Alina Castaneda MD [facility]-08334 Level 2 Est. Patient 12:52:14 CDT Alina Castaneda MD [facility]-55963 Level 3 Est. Patient 11:51:18 TEACHER DRAMA Alina Castaneda MD [facility] CPT-60068 Level 3 Est. Patient 10:09:22 TEACHER DRAMA Alina Castaneda MD [facility]-85460 Level 3 Est. Patient 14:36:26 TEACHER DRAMA Marvel [facility]-70846 Level 3 Est. Patient 13:34:47 TEACHER DRAMA Alina Castaneda MD [facility] CPT-42214 Level 3 Est. Patient 19:52:08 TEACHER DRAMA Alina Castaneda MD [facility] CPT-23851 Level 3 Est. Patient 10:01:51 TEACHER DRAMA Marvel Charles [facility] CPT-92951 Level 3 Est. Patient 21:54:06 CDT Vanessa Hickey MD [facility]-77469 Level 3 Est. Patient 08:54:46 CDT Alina Castaneda MD PhD [facility]-08503 Level 3 Est. Patient 09:32:11 CDT Brooksjohn [facility]-50000 Level 3 Est. Patient 12:02:49 CDT Alina Castaneda MD [facility]-28222 Level 3 Est. Patient 19:17:33 CDT Alina Castaneda MD [facility]-34993 Level 3 Est. Patient 13:19:[facility]-32854 Level 3 Est. Patient 08:20:05 CDT Alina Castaneda MD PhD [facility]-44822 Level 3 Est. Patient 15:17:18 CDT Alina Castaneda MD [facility]-34846 Level 3 Est. Patient 14:25:36 TEACHER DRAMA Marvel Araceli [facility]-14294 Level 3 Est. Patient 10:09:15 TEACHER DRAMA Marvel Gurdeepajayestela [facility]-38534 Level 3 Est. Patient 21:28:43 CDT Alina Castaneda MD PhD [facility]-30216 Level 3 Est. Patient 15:20:11 [facility]-23365 Level 4 Est. Patient 19:08:12 CDT Alina Castaneda MD PhD [facility]65344 Level 3 Est. Patient 15:06:39 CDT Marvel Charles [facility] CPT-11570 Level 4 Est. Patient 17:48:15 CDT Alina Castaneda MD [facility]-73907 Level 3 Est. Patient 14:53:49 CDT Alina Castaneda MD [facility]-04457 Level 3 Est. Patient 09:35:16 CDT Alina Castaneda MD [facility]-27864 Level 3 Est. Patient 12:23:22 CDT Alina Castaneda MD [facility]-82871 Level 3 Est. Patient 16:19:15 CDT Alina Castaneda MD [facility]-03621 Level 3 Est. Patient 21:39:56 TEACHER DRAMA Alina Castaneda MD [facility]-26346 Level 4 Est. Patient 14:12:56 TEACHER DRAMA Alina Castaneda MD [facility]-20748 Level 2 Est. Patient 15:34:57 TEACHER DRAMA Alina Castaneda MD [facility]-68627 Level 3 Est. Patient 12:17:04 TEACHER DRAMA Alina Castaneda MD [facility]-37385 Level 3 Est. Patient 09:18:18 TEACHER DRAMA Marvel Charles [facility] CPT-35243 Level 2 Est. Patient 21:50:24 CDT Alina Castaneda MD [facility]-11568 Level 3 Est. Patient 09:17:28 CDT Marvel [facility]-40758 Level 4 Est. Patient 18:54:02 CDT Alina Castaneda MD [facility] CPT-28999 Level 3 Est. Patient 10:47:10 CDT Alina Castaneda MD [facility] CPT-05929 Level 3 Est. Patient 09:22:20 CDT Marvel Thurstonestela [facility] CPT-90371 Level 3 Est. Patient 16:39:43 CDT Marvel Thurstonestela [facility] CPT-20999 Level 3 Est. Patient 16:05:16 CDT Alina Castaneda MD [facility] CPT-90421 Level 3 Est. Patient 00:29:15 CDT Alina Castaneda MD [facility] CPT-26299 Level 3 Est. Patient 10:49:22 TEACHER DRAMA Marvel Araceli [facility] CPT-30628 Level 3 Est. Patient 21:30:19 [address]ER [address]AMA Alina Castaneda MD [facility] CPT-81602 Level 4 Est. Patient 17:04:11 TEACHER [address]AMA Marvel Thurstonestela [facility] CPT-77797 Level 3 Est. Patient 15:34:11 [facility]ER DRAMA [facility] CPT-35522 Level 2 Est. Patient 12:51:58 TEACHER DRAMA Alina Castaneda MD [facility] CPT-09132 Level 3 Est. Patient 13:20:[address]ER [address]AMA Alina Castaneda MD [facility] CPT-24013 Level 3 Est. Patient 09:23:35 CDT Alina Castaneda MD [facility] Procedures Code Procedure Name Date Entry Date Standard Description CPT-39021 Bladder Scan 12:36:44 CDT CPT-43174 Bladder Scan 21:54:06 CDT CPT-G0008 Administration of Influenza Virus Vaccine 13:05:26 CDT CPT-68874 Fluzone Quadrivalent Intramuscular Suspension 0.5 ML 13: 05:26 CDT CPT-18377 Administration single or combination vaccine inc oral 11 :49:51 CDT CPT-68366 Pneumovax 11:49:51 CDT CPT-60543 Ribs unilateral 2V 12:37:22 TEACHER DRAMA CPT-52529 Chest 2V Frontal and Lat 17:15:26 CDT CPT-43979 Abx/Therapy Injection 18:54:02 CDT CPT-J0696 Rocephin 1000 mg (Ceftriaxone) 16:00:32 CDT CPT-18923 Chest 2V Frontal and Lat 15:26:45 CDT CPT-19643 Chest 2V Frontal and Lat 10:23:27 CDT CPT-98527 Venipuncture Draw Fee 10:11:00 CDT CPT-98903 Administration single or combination vaccine inc oral 11 :56:38 CDT CPT-08633 Influenza split virus > age 3 11:56:38 CDT CPT-61256 Venipuncture Draw Fee 08:49:54 TEACHER DRAMA CPT-31567 EKG Trac and Interp 17:54:19 TEACHER DRAMA
--- OUTSIDE RECORDS SUMMARY | 2018-07-02 15:42 | XMS REPORT | Clinical Summary ---
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 Benign paroxysmal positional vertigo Vertigo, benign paroxysmal position 386.11 Inactive Mima Erazo [employer] SOFTWARE ENGINEER Benign paroxysmal positional vertigo High-risk sexual behavior V69.2 Active Alina Castaneda MD PhD High-risk sexual behavior Erectile dysfunction 302.72 Active Alina Castaneda MD PhD Psychosexual dysfunction with inhibited sexual excitement Constipation 564.00 Active Alina Castaneda MD PhD Constipation, unspecified Skin lesion 709.9 Active Alina Castaneda MD PhD Unspecified disorder of skin and subcutaneous tissue Malaise and fatigue 780.79 Active Cherelle Speaks EN[employer] LEVEL SOFTWARE ENGINEER Other malaise and fatigue Diarrhea 787.91 Active Cherelle Speaks ENTRY LEVEL SOFTWARE ENGINEER Diarrhea PHARYNGITIS 462 Active Cherelle Speaks EN[employer] LEVEL SOFTWARE ENGINEER Acute pharyngitis Colitis 558.9 Active Mima Erazo EN[employer] LEVEL SOFTWARE ENGINEER Other and unspecified noninfectious gastroenteritis and colitis WOUND, OPEN, NOSE ICD-873.20 Inactive Alina Castaneda MD PhD DIABETES, TYPE 2 ICD-250.00 Inactive Alina Castaneda MD PhD HYPERTENSION ICD-401.9 Inactive Alina Castaneda MD PhD URI ICD-465.9 Inactive Alina Castaneda MD PhD CHEST PAIN ICD-786.50 Inactive Alina Castaneda MD PhD FH STROKE ICD-V17.1 Inactive Marvel Charles COOK MORNING FATIGUE ICD-780.79 Inactive Alina Castaneda MD PhD DIABETES MELLITUS, TYPE II, UNCONTROLLED ICD-250.02 Inactive Marvel MARROQUIN UNSPECIFIED TACHYCARDIA ICD-785.0 Inactive Alina Castaneda MD PhD ABNORMAL HEART RHYTHMS ICD-427.9 Inactive Alina Castaneda MD PhD PROBLEMS RELATED TO HIGH-RISK SEXUAL BEHAVIOR ICD-V69.2 Inactive lAina Castaneda MD PhD CHEST COUGH ICD-786.2 Inactive [...] SQ each evening, for diabetes INSULIN DETEMIR 73063042109 Active Salina ROJAS Active TRUEPLUS LANCETS 30G MISC 3 a day LANCETS 96170490031 Active Marvel MENDOZAP Active TOLTERODINE TARTRATE 2 MG TABS 1 pill twice daily, for bladder TOLTERODINE TARTRATE 07979299548 No Longer Active Vanessa Hickey MD Active AMITIZA 24 MCG ORAL CAPS Take one capsule BID for constipation. LUBIPROSTONE 47825589190 No Longer Active Vanessa Hickey MD Active LOMOTIL 2.5-0.025 MG ORAL TABS take 1-2 tabs PO after each stool, no more than 8 in 24 hours DIPHENOXYLATE-ATROPINE 74580654538 Active Grace ROJAS Active FLUVOXAMINE MALEATE 100 MG ORAL TABS take one tab every AM et HS, and take 1/ 2 tab at noon FLUVOXAMINE MALEATE 02186115343 Active Grace ROJAS Active METOPROLOL SUCCINATE 100 MG BP37X-GVM 1 by mouth daily for blood pressure METOPROLOL SUCCINATE 90578700301 No Longer Active Grace Nelsonb RMA Active METFORMIN HCL ER 500 MG AH20K-YBG Take three tablets by mouth everyday METFORMIN HCL 14053513935 No Longer Active Grace Azam RMA Active LOVAZA 1 GM CAPS 4 daily (for triglycerides) OMEGA-3- ACID ETHYL ESTERS 40478683734 No Longer Active Grace Azam RMA Active TRAZODONE HCL 100 MG ORAL TABS 1 tab by mouth for sleep TRAZODONE HCL 31952304223 No Longer Active Grace Azam RMA Active NOVOFINE 32G X 6 MM MISC use one four times per day INSULIN PEN NEEDLE 97766028193 No Longer Active Grace Azam RMA Active BACTROBAN 2 % CREAM Apply to affected area BID for up to 10 days MUPIROCIN CALCIUM 46354827328 No Longer Active Grace Azam RMA Active ZOFRAN 4 MG TABS 1 po q4hr PRN Nausea ONDANSETRON HCL 97882093898 Active Salina Han RMA Active KEFLEX 500 MG CAP 1 po BID x 7 days CEPHALEXIN 31559122044 No Longer Active Cherelle Speaks EN[employer] LEVEL SOFTWARE ENGINEER Active FLUVOXAMINE MALEATE 100 MG TABS Take one (1) tablet by mouth am, 1/2 at noon FLUVOXAMINE MALEATE 52585096590 No Longer Active Mima Erazo ENTRY LEVEL SOFTWARE ENGINEER Active CORICIDIN HBP CONGESTION/COUGH 10-200 MG ORAL CAPS Take as directed on box as needed for cold/flu symptoms DEXTROMETHORPHAN-GUAIFENESIN 07992403001 Active Cherelle Speaks ENTRY LEVEL SOFTWARE ENGINEER Active OMEGA-3 300 MG ORAL CAPS 4 caps by mouth daily OMEGA-3 FATTY ACIDS 34281075457 Active Cherelle Speaks ENTRY LEVEL SOFTWARE ENGINEER Active FLUVOXAMINE MALEATE 100 MG ORAL TABS Take 1/2 tab at noon FLUVOXAMINE MALEATE 30226133866 No Longer Active Cherelle Avila ENTRY LEVEL SOFTWARE ENGINEER Active [facility] LUBRICANT EYE DROPS 0.4-0.3 % OPHTH SOLN POLYETHYL GLYCOL-PROPYL GLYCOL 05306291076 Active Mima Erazo EN[employer] LEVEL SOFTWARE ENGINEER Active CLONAZEPAM 1 MG TABS 1/2 pill by mouth three times daily CLONAZEPAM 27904815223 Active Alina Castaneda MD PhD Active MIRALAX POWD 17g by mouth daily, for constipation POLYETHYLENE GLYCOL 3350 90351367989 Active Alina Castaneda MD PhD Active HYDROCODONE-ACETAMINOPHEN 5-325 MG TABS 2 tabs by mouth three times daily for pain HYDROCODONE-ACETAMINOPHEN 20266098253 Active Mima Erazo ENTRY LEVEL SOFTWARE ENGINEER Active HUMALOG KWIKPEN 100 UNIT/ML SC SOPN 20 units with breakfast, 10 units with lunch, 10 units with dinner, for diabetes INSULIN LISPRO (HUMAN ) 93971245886 Active Alina Castaneda MD PhD Active LATUDA 120 MG ORAL TABS 1 pill by mouth nightly LURASIDONE HCL 76059488716 Active Alina Castaneda MD PhD Active COLACE 100 MG CAPS 1 pill by mouth twice daily, for constipation DOCUSATE SODIUM 53034423393 Active Alina Castaneda MD PhD Active TRUETEST TEST STRP check blood sugars 3x/day GLUCOSE BLOOD 43758958305 Active Marvel Thurstonari COOK MORNING Active ACCU-CHEK ROSA UZMA Use device to check blood sugars BLOOD GLUCOSE MONITORING SUPPL 70361527429 No Longer Active Marvel Mackenzieglari LOPEZ Active ACCU-CHEK ROSA INVITR STRP use strips with device to check blood sugars 3 times daily GLUCOSE BLOOD 08309699575 No Longer Active Marvel MENDOZAP Active VERAPAMIL HCL ER 180 MG ORAL CR-TABS 1 pill by mouth twice daily, for migraine prevention VERAPAMIL HCL 50380690882 Active Alina Castaneda MD PhD Active CYCLOBENZAPRINE HCL 10 MG TABS 1 tablet by mouth three times daily, scheduled CYCLOBENZAPRINE HCL 90386803781 No Longer Active Alina Castaneda MD PhD Active HUMALOG 100 UNIT/ML SOLN Take 20 units with breakfast, 10u with lunch and suppetr. INSULIN LISPRO (HUMAN) 69094001098 No Longer Active Alina Castaneda MD PhD Active TRUETEST TEST STRP check sugars 4x/day GLUCOSE BLOOD 87770575280 No Longer Active Alina Castaneda MD PhD Active MORPHINE SULFATE 30 MG TABS 1 pill by mouth twice daily, for pain MORPHINE SULFATE 37476186067 Active Mima Erazo ENTRY LEVEL SOFTWARE ENGINEER Active ACYCLOVIR 400 MG ORAL TABS 1 pill three times daily x 5 days, for cold sore outbreak ACYCLOVIR 64091134198 No Longer Active Alina Castaneda MD PhD Active PENICILLIN V POTASSIUM 500 MG TABS 1 pill by mouth three times daily PENICILLIN V POTASSIUM 17952476003 No Longer Active Alina Castaneda MD PhD Active UROXATRAL 10 MG VK24C-LFC Take 1 tablet by mouth daily ALFUZOSIN HCL 89615624797 No Longer Active Alina Castaneda MD PhD Active THIOTHIXENE 5 MG CAPS by mouth twice a day THIOTHIXENE 49015615561 No Longer Active Alina Castaneda MD PhD Active ZYPREXA 7.5 MG TABS 1 at HS OLANZAPINE 11859392770 No Longer Active Alina Castaneda MD PhD Active BD INSULIN SYRINGE 28G X 1/2" 1 ML MISC 1 four times per day INSULIN SYRINGE-NEEDLE U-100 41855739505 Active [facility] Gurdeepglestela [facility] Active DETROL LA 4 MG UZ99Y-UTL Take 1 tablet by mouth daily TOLTERODINE TARTRATE 09484923354 No Longer Active Alina Castaneda MD PhD Active TERESE CONTOUR TEST STRP monitor blood sugars 3x/day GLUCOSE BLOOD 12371431993 No Longer Active Alina Castaneda MD PhD Active EQL TRUETEST TEST STRP Test blood sugar TID GLUCOSE BLOOD 77187641545 No Longer Active Alina Castaneda MD PhD Active FLUTICASONE PROPIONATE 50 MCG/ACT SUSP 2 sprays each nostril qDay x 30 days FLUTICASONE PROPIONATE 47373109326 No Longer Active Alina Castaneda MD PhD Active IBUPROFEN 200 MG TABS 1 Q 6 hr. PRN IBUPROFEN 68401675664 No Longer Active Alina Castaneda MD PhD Active NIACIN ER 500 MG CR-TABS 4 qHS (for triglycerides) NIACIN 09780811070 No Longer Active Alina Castaneda MD PhD Active ALFUZOSIN HCL ER 10 MG JC70V-JPT 1 tablet daily ALFUZOSIN HCL 95167143047 Active Vanessa Hickey MD Active SAPHRIS 5 MG SUBL by mouth twice a day ASENAPINE MALEATE 36876272234 No Longer Active Maliheh Ziglari COOK MORNING Active ACETAMINOPHEN 500 MG TABS 2 Q 6 hr. PRN ACETAMINOPHEN 67767757838 No Longer Active Maliheh Ziglari COOK MORNING Active ORPHENADRINE CITRATE ER 100 MG [id number]-XWY 1 every 12 hr. as needed ORPHENADRINE CITRATE 49976748448 No Longer Active Alina Castaneda MD PhD Active NIACIN CR 500 MG CR-TABS 2 qHS NIACIN 85135436211 No Longer Active Alina Castaneda MD PhD Active AMOXICILLIN 500 MG CAPS 2 po BID x 10 days AMOXICILLIN 46808935634 No Longer Active Alina Castaneda MD PhD Active HYDROCODONE-ACETAMINOPHEN 7.5-325 MG TABS 1 four times a day as needed for pain HYDROCODONE-ACETAMINOPHEN 98658530469 No Longer Active Alina Castaneda MD PhD Active DOXEPIN HCL 10 MG CAPS Take 1 tablet by mouth daily DOXEPIN HCL 60944961375 No Longer Active Salina ROJAS Active NAVANE 10 MG CAPS 1/2 tablet twice a day THIOTHIXENE No Longer Active Salina ROBBINSA Active CYCLOBENZAPRINE HCL 10 MG TABS 1/2 tablet by mouth every 8 hours as needed for muscle spasms CYCLOBENZAPRINE HCL 32219926224 No Longer Active Alina Castaneda MD PhD Active BACTROBAN 2 % CREAM apply to ear and nose twice daily MUPIROCIN CALCIUM 43795960119 No Longer Active Alina Castaneda MD PhD Active HYDROCODONE-ACETAMINOPHEN 5-325 MG TABS take one tablet by mouth every four hours as needed for pain HYDROCODONE-ACETAMINOPHEN 10090262448 No Longer Active Alina Castaneda MD PhD Active ZOLPIDEM TARTRATE 10 MG TABS take at bedtime ZOLPIDEM TARTRATE 25859151166 Active Alina Castaneda MD PhD Active ZYPREXA 5 MG TABS take one tablet by mouth every evening OLANZAPINE 11161004474 No Longer Active Alina Castaneda MD PhD Active ALBUTEROL SULFATE 0.083 % NEBU SOLN one vial per nebulizer TID and PRN cough/ soa ALBUTEROL SULFATE 85730148705 No Longer Active Alina Castaneda MD PhD Active GUAIFENESIN 600 MG TH85F-TXL 1 tablet by mouth twice daily if needed for cough GUAIFENESIN 12845095898 No Longer Active Marvel MARROQUIN Active AZITHROMYCIN 500 MG SOLR 1 po q day AZITHROMYCIN 77208639179 No Longer Active Alina Castaneda MD PhD Active PROMETHAZINE-CODEINE 6.25-10 MG/5ML SYRP 1 tsp po q 6 hours prn cough PROMETHAZINE-CODEINE 82159840939 No Longer Active Alina Castaneda MD PhD Active CEFDINIR 300 MG CAPS by mouth twice a day CEFDINIR 32209670394 No Longer Active Alina Castaneda MD PhD Active METFORMIN HCL 500 MG XK59Z-YWR Take 3 tablets by mouth everyday METFORMIN HCL 29036765699 No Longer Active Alina Castaneda MD PhD Active LEVEMIR 100 UNIT/ML SOLN 90 units SQ qHS INSULIN DETEMIR 55456554004 No Longer Active Marvel MARROQUIN Active TOPROL XL 100 MG UC14X-JMW 1 @ HS METOPROLOL SUCCINATE 33733003209 No Longer Active Marvel MARROQUIN Active ALLOPURINOL 300 MG TABS Take one by mouth daily ALLOPURINOL 53222544027 Active Alina Castaneda MD PhD Active ZYPREXA 10 MG TABS Take one by mouth daily OLANZAPINE 20366987160 No Longer Active Alina Castaneda MD PhD Active NOVOLOG 100 UNIT/ML SOLN 40 units with every meal INSULIN ASPART 18586656187 No Longer Active Alina Castaneda MD PhD Active VERAPAMIL HCL CR 120 MG TAB CR 1 qPM VERAPAMIL HCL 24938960005 No Longer Active Salina ROJAS Active ZYPREXA 15 MG TABS Take 1 tablet by mouth daily OLANZAPINE 08823900313 No Longer Active Marvel MARROQUIN Active LISINOPRIL 20 MG TABS 1 BID LISINOPRIL 80822236872 Active Alina Castaneda MD PhD Active ALBUTEROL SULFATE (2.5 MG/3ML) 0.083% NEBU 1 neb tid and prn cough ALBUTEROL SULFATE 15659394417 No Longer Active Alina Castaneda MD PhD Active TRAVATAN Z 0.004 % SOLN 1 gtt each eye daily TRAVOPROST 80678615709 Active CRYSTAL Suarez Active LANTUS 100 UNIT/ML SOLN 60 units sq q hs INSULIN GLARGINE 84195544731 No Longer Active CRYSTAL Suarez Active ALBUTEROL SULFATE (2.5 MG/3ML) 0.083% NEBU 1 neb tid and prn cough ALBUTEROL SULFATE (2.5 MG/3ML) 0.083% NEBU 842100 ALBUTEROL SULFATE Inactive ZYPREXA 15 MG TABS Take 1 tablet by mouth daily ZYPREXA 15 MG TABS 110627 OLANZAPINE Inactive VERAPAMIL HCL CR 120 MG TAB CR 1 qPM VERAPAMIL HCL CR 120 MG TAB CR VERAPAMIL HCL Inactive ZYPREXA 10 MG TABS Take one by mouth daily ZYPREXA 10 MG TABS 691544 OLANZAPINE Inactive TOPROL XL 100 MG [id number]-INM 1 @ HS TOPROL XL 100 MG OO24D-FEU METOPROLOL SUCCINATE Inactive LEVEMIR 100 UNIT/ML SOLN 90 units SQ qHS LEVEMIR 100 UNIT/ML SOLN INSULIN DETEMIR Inactive PROMETHAZINE-CODEINE 6.25-10 MG/5ML SYRP 1 tsp po q 6 hours prn cough PROMETHAZINE-CODEINE 6.25-10 MG/5ML SYRP 232995 PROMETHAZINE- CODEINE Inactive GUAIFENESIN 600 MG XG54A-CFT 1 tablet by mouth twice daily if needed for cough GUAIFENESIN 600 MG OX49W-NGK GUAIFENESIN Inactive ALBUTEROL SULFATE 0.083 % NEBU SOLN one vial per nebulizer TID and PRN cough/ soa ALBUTEROL SULFATE 0.083 % NEBU SOLN 167265 ALBUTEROL SULFATE Inactive ZYPREXA 5 MG TABS take one tablet by mouth every evening ZYPREXA 5 MG TABS 203368 OLANZAPINE Inactive HYDROCODONE-ACETAMINOPHEN 5-325 MG TABS take one tablet by mouth every four hours as needed for pain HYDROCODONE-ACETAMINOPHEN 5-325 MG TABS 565171 HYDROCODONE-ACETAMINOPHEN Inactive BACTROBAN 2 % CREAM apply to ear and nose twice daily BACTROBAN 2 % CREAM 479508 MUPIROCIN CALCIUM Inactive CYCLOBENZAPRINE HCL 10 MG TABS 1/2 tablet by mouth every 8 hours as needed for muscle spasms CYCLOBENZAPRINE HCL 10 MG TABS 105355 CYCLOBENZAPRINE HCL Inactive NAVANE 10 MG CAPS 1/2 tablet twice a day NAVANE 10 MG CAPS THIOTHIXENE Inactive DOXEPIN HCL 10 MG CAPS Take 1 tablet by mouth daily DOXEPIN HCL 10 MG CAPS 6104435 DOXEPIN HCL Inactive HYDROCODONE-ACETAMINOPHEN 7.5-325 MG TABS 1 four times a day as needed for pain HYDROCODONE-ACETAMINOPHEN 7.5-325 MG TABS 774429 HYDROCODONE-ACETAMINOPHEN Inactive NIACIN CR 500 MG CR-TABS 2 qHS NIACIN CR 500 MG CR- TABS NIACIN Inactive ORPHENADRINE CITRATE ER 100 MG ZO54E-MHU 1 every 12 hr. as needed ORPHENADRINE CITRATE ER 100 MG CQ32O-DVO ORPHENADRINE CITRATE Inactive ACETAMINOPHEN 500 MG TABS 2 Q 6 hr. PRN ACETAMINOPHEN 500 MG TABS 837628 ACETAMINOPHEN Inactive SAPHRIS 5 MG SUBL by mouth twice a day SAPHRIS 5 MG SUBL ASENAPINE MALEATE Inactive NIACIN ER 500 MG CR-TABS 4 qHS (for triglycerides) NIACIN ER 500 MG CR-TABS NIACIN Inactive IBUPROFEN 200 MG TABS 1 Q 6 hr. PRN IBUPROFEN 200 MG TABS 858385 IBUPROFEN Inactive FLUTICASONE PROPIONATE 50 MCG/ACT SUSP 2 sprays each nostril qDay x 30 days FLUTICASONE PROPIONATE 50 MCG/ACT SUSP 961660 FLUTICASONE PROPIONATE Inactive EQL TRUETEST TEST STRP Test blood sugar TID EQL TRUETEST TEST STRP GLUCOSE BLOOD Inactive TERESE CONTOUR TEST STRP monitor blood sugars 3x/day TERESE CONTOUR TEST STRP GLUCOSE BLOOD Inactive DETROL LA 4 MG FM12F-VSI Take 1 tablet by mouth daily DETROL LA 4 MG HS42L-KCS TOLTERODINE TARTRATE Inactive ZYPREXA 7.5 MG TABS 1 at HS ZYPREXA 7.5 MG TABS 670299 OLANZAPINE Inactive THIOTHIXENE 5 MG CAPS by mouth twice a day THIOTHIXENE 5 MG CAPS 901848 THIOTHIXENE Inactive UROXATRAL 10 MG GP50K-UAW Take 1 tablet by mouth daily UROXATRAL 10 MG XI87Y-LOK ALFUZOSIN HCL Inactive ACYCLOVIR 400 MG ORAL TABS 1 pill three times daily x 5 days, for cold sore outbreak ACYCLOVIR 400 MG ORAL TABS 476508 ACYCLOVIR Inactive TRUETEST TEST STRP check sugars 4x/day TRUETEST TEST STRP GLUCOSE BLOOD Inactive HUMALOG 100 UNIT/ML SOLN Take 20 units with breakfast, 10u with lunch and suppetr. HUMALOG 100 UNIT/ML SOLN INSULIN LISPRO ( HUMAN) Inactive CYCLOBENZAPRINE HCL 10 MG TABS 1 tablet by mouth three times daily, scheduled CYCLOBENZAPRINE HCL 10 MG TABS 477495 CYCLOBENZAPRINE HCL Inactive ACCU-CHEK ROSA INVITR STRP use strips with device to check blood sugars 3 times daily ACCU-CHEK ROSA INVITR STRP GLUCOSE BLOOD Inactive ACCU-CHEK ROSA UZMA Use device to check blood sugars ACCU-CHEK ROSA UZMA BLOOD GLUCOSE MONITORING SUPPL Inactive FLUVOXAMINE MALEATE 100 MG ORAL TABS Take 1/2 tab at noon FLUVOXAMINE MALEATE 100 MG ORAL TABS 371647 FLUVOXAMINE MALEATE Inactive FLUVOXAMINE MALEATE 100 MG TABS Take one (1) tablet by mouth am, 1/2 at noon FLUVOXAMINE MALEATE 100 MG TABS 179064 FLUVOXAMINE MALEATE Inactive BACTROBAN 2 % CREAM Apply to affected area BID for up to 10 days BACTROBAN 2 % CREAM 208310 MUPIROCIN CALCIUM Inactive NOVOFINE 32G X 6 MM MISC use one four times per day NOVOFINE 32G X 6 MM MISC INSULIN PEN NEEDLE Inactive TRAZODONE HCL 100 MG ORAL TABS 1 tab by mouth for sleep TRAZODONE HCL 100 MG ORAL TABS 340625 TRAZODONE HCL Inactive LOVAZA 1 GM CAPS 4 daily (for triglycerides) LOVAZA 1 GM CAPS 092266 NJKLR-2-HTLS ETHYL ESTERS Inactive METFORMIN HCL ER 500 MG KP86V-WEU Take three tablets by mouth everyday METFORMIN HCL ER 500 MG QT67S-WNX METFORMIN HCL Inactive METOPROLOL SUCCINATE 100 MG DB65X-YWM 1 by mouth daily for blood pressure METOPROLOL SUCCINATE 100 MG IT83X-HKM METOPROLOL SUCCINATE Inactive AMITIZA 24 MCG ORAL CAPS Take one capsule BID for constipation. AMITIZA 24 MCG ORAL CAPS LUBIPROSTONE Inactive TOLTERODINE TARTRATE 2 MG TABS 1 pill twice daily, for bladder TOLTERODINE TARTRATE 2 MG TABS 532251 TOLTERODINE TARTRATE Inactive CEFDINIR 300 MG CAPS by mouth twice a day CEFDINIR 300 MG CAPS 022786 CEFDINIR Inactive AZITHROMYCIN 500 MG SOLR 1 po q day AZITHROMYCIN 500 MG SOLR 22192665572 AZITHROMYCIN Inactive AMOXICILLIN 500 MG CAPS 2 po BID x 10 days AMOXICILLIN 500 MG CAPS 309369 AMOXICILLIN Inactive PENICILLIN V POTASSIUM 500 MG TABS 1 pill by mouth three times daily PENICILLIN V POTASSIUM 500 MG TABS 544699 PENICILLIN V POTASSIUM Inactive KEFLEX 500 MG CAP 1 po BID x 7 days KEFLEX 500 MG CAP 244903 CEPHALEXIN Inactive Immunizations Vaccine Administration Date Value [...] Fluvirin, Fluarix, Agriflu(>=18 yo)) Fluzone (>3 yrs.) [[id number]] Influenza, seasonal, injectable pneumococcal immunization administered Pneumovax [...] MICROALBUMIN - Chemistry sodium, serum 137 mmol/L 110-550 2723/05/19 potassium, serum 5.2 mmol/L 3.5-5.2 chloride, serum [...] Panel - Chemistry sodium, serum 137 mmol/L 552-711 8659/10/12 potassium, serum 4.8 mmol/L 3.5-5.2 chloride, serum 102 mmol/L 98-107 carbon dioxide, venous blood 27.6 mmol/L 21.0-32.0 blood glucose 168 mg/dL 65-110 calcium, serum 9.0 mg/dL 8.5-10.1 urea nitrogen, blood 15 mg/dL 7-18 creatinine, serum 1.04 mg/dL 0.55-1.30 sodium, serum 138 mmol/L 772-514 7427/11/11 potassium, serum 4.7 mmol/L 3.5-5.2 chloride, serum [...] % 11.6-14.8 platelet count 252 10^3/MM^3 10*3/mm3 620-817 7572/10/12 leukocyte count, blood 5.8 10^3/MM^3 10*3/mm3 4.6-10.2 [...] 240 10^3/MM^3 10*3/mm3 142-424 Lab Report: Chlamydia/GC APTIMA/44406, HIV-1/2 Agn/Dominga/95951, RPR (DX) W ... - Chemistry hepatitis B surface antigen NON-REACTIVE NON-REACTIVE Lab Report: Chlamydia/GC APTIMA/30836, HIV-1/2 Agn/Dominga/49322, RPR (DX) W ... - Lab chlamydia DNA probe NOT DETECTED NOT DETECTED Lab Report: Chlamydia/GC APTIMA/77398, HIV-1/2 Agn/Dominga/71952, RPR (DX) W ... - Microbiology Neisseria gonorrhoeae DNA probe NOT DETECTED NOT DETECTED Lab Report: Chlamydia/GC APTIMA/44527, HIV-1/2 Agn/Dominga/98244, RPR (DX) W ... - Serology rapid plasma reagin antibody titer NON-REACTIVE NON-REACTIVE Lab Report: HGBA1C - Chemistry hemoglobin A1C, blood, as % of total hemoglobin 6.1 % 4.3-6.0 hemoglobin A1C, blood, as % of total hemoglobin 6.3 % 4.3-6.0 Lab Report: Lipid Panel, HEPATIC PANEL, MICROALBUMIN, CBC - Chemistry cholesterol, serum 131 mg/dL 706-238 3676/06/03 triglyceride, serum, fasting 383 mg/dL 30-200 HDL [...] 4.7 mg/dL 2.6-7.2 cholesterol, serum 142 mg/dL 553-545 8013/06/26 triglyceride, serum, fasting 272 mg/dL 30-200 HDL [...] negative Encounters Code Encounter Date Provider Facility CPT-14714 Level 3 Est. Patient 14:39:00 LAB MANAGER Vanessa Hickey MD [facility] CPT-20900 Level 2 Est. Patient 18:43:34 CDT Mima Erazo [facility] CPT-37286 Level 3 Est. Patient 16:22:09 CDT Cherelle Avila [facility] CPT-41285 Level 4 Est. Patient 17:55:14 CDT Mima Erazo [facility] CPT-82943 Level 2 Est. Patient 17:13:21 CDT Alina Castaneda MD PhD [facility] CPT-11455 Level 3 Est. Patient 14:46:15 CDT Vanessa Hickey MD [facility]-44796 Level 3 Est. Patient 09:34:56 CDT Alina Castaneda MD PhD [facility]95590 Level 3 Est. Patient 21:40:19 CDT Mima Erazo [facility] CPT-06514 Level 3 Est. Patient 09:26:40 [facility] Patient 12:36:43 CDT Vanessa Hickey MD [facility]-80732 Level 3 Est. Patient 12:57:49 CDT Vanessa Hickey MD [facility]-43122 Level 3 Est. Patient 00:28:25 CDT Alina Castaneda MD [facility]-28301 Level 2 Est. Patient 12:52:14 CDT Alina Castaneda MD [facility]-13434 Level 3 Est. Patient 11:51:18 LAB MANAGER Alina Castaneda MD [facility]-58582 Level 3 Est. Patient 10:09:22 LAB MANAGER Alina Castaneda MD [facility]-64057 Level 3 Est. Patient 14:36:26 [facility]GER [facility]-07055 Level 3 Est. Patient 13:34:47 LAB MANAGER Alina Castaneda MD [facility]-20182 Level 3 Est. Patient 19:52:08 LAB MANAGER Alina Castaneda MD [facility]10884 Level 3 Est. Patient 10:01:51 LAB MANAGER Marvel [facility]-84347 Level 3 Est. Patient 21:54:06 CDT Vanessa Hickey MD [facility]-03387 Level 3 Est. Patient 08:54:46 CDT Alina Castaneda MD [facility]-28742 Level 3 Est. Patient 09:32:11 CDT Marvel [facility]-05443 Level 3 Est. Patient 12:02:49 CDT Alina Castaneda MD [facility]00541 Level 3 Est. Patient 19:17:33 CDT Alina Castaneda MD [facility]-77909 Level 3 Est. Patient 13:19:10 CDT Marvel [facility]-90629 Level 3 Est. Patient 08:20:05 CDT Alina Castaneda MD [facility]19624 Level 3 Est. Patient 15:17:18 CDT Alina Castaneda MD [facility]-94130 Level 3 Est. Patient 14:25:36 LAB MANAGER Marvel [facility]-25848 Level 3 Est. Patient 10:09:15 LAB MANAGER Marvel [facility]-07227 Level 3 Est. Patient 21:28:43 CDT Alina Castaneda MD [facility]-64508 Level 3 Est. Patient 15:20:11 [facility] 4 Est. Patient 19:08:12 CDT Alina Castaneda MD [facility]-16156 Level 3 Est. Patient 15:06:39 CDT Marvel [facility]-25422 Level 4 Est. Patient 17:48:15 CDT Alina Castaneda MD [facility]-18224 Level 3 Est. Patient 14:53:49 CDT Alina Castaneda MD [facility]-92084 Level 3 Est. Patient 09:35:16 CDT Alina Castaneda MD [facility]33208 Level 3 Est. Patient 12:23:22 CDT Alina Castaneda MD [facility]-59147 Level 3 Est. Patient 16:19:15 CDT Alina Castaneda MD [facility]-28100 Level 3 Est. Patient 21:39:56 LAB MANAGER Alina Castaneda MD [facility]-51670 Level 4 Est. Patient 14:12:56 LAB MANAGER Alina Castaneda MD [facility]88842 Level 2 Est. Patient 15:34:57 LAB MANAGER Alina Castaneda MD [facility]94076 Level 3 Est. Patient 12:17:04 LAB MANAGER Alina Castaneda MD [facility]90278 Level 3 Est. Patient 09:18:18 LAB MANAGER Marvel [facility]-34834 Level 2 Est. Patient 21:50:24 CDT Alian Castaneda MD [facility]46034 Level 3 Est. Patient 09:17:28 CDT Marvel [facility]-51757 Level 4 Est. Patient 18:54:02 CDT Alina Castaneda MD [facility]87025 Level 3 Est. Patient 10:47:10 CDT Alina Castaneda MD [facility]-07548 Level 3 Est. Patient 09:22:20 CDT Marvel [facility] [facility]-79917 Level 3 Est. Patient 16:39:43 CDT Marvel [facility]-99965 Level 3 Est. Patient 16:05:16 CDT Alina Castaneda MD [facility]70799 Level 3 Est. Patient 00:29:15 CDT Alina Castaneda MD [facility]06189 Level 3 Est. Patient 10:49:22 LAB MANAGER [facility] CPT-37260 Level 3 Est. Patient 21:30:19 LAB MANAGER Alina Castaneda MD [facility] CPT-93309 Level 4 Est. Patient 17:04:11 LAB MANAGER [facility] CPT-74885 Level 3 Est. Patient 15:34:11 LAB MANAGER [facility] CPT-10877 Level 2 Est. Patient 12:51:58 LAB MANAGER Alina Castaneda MD [facility] CPT-95001 Level 3 Est. Patient 13:20:01 LAB MANAGER Alina Castaneda MD [facility] CPT-70348 Level 3 Est. Patient 09:23:35 CDT Alina Castaneda MD [facility] Procedures Code Procedure Name Date Entry Date Standard Description [facility]-23285 Bladder Scan 14:39:01 LAB MANAGER CPT-TCMM Transitional Care Mgmt-Moderate 10:30:19 LAB MANAGER CPT-74882 Bladder Scan 12:36:44 CDT CPT-52500 Bladder Scan 21:54:06 CDT CPT-G0008 Administration of Influenza Virus Vaccine 13:05:26 CDT CPT-58096 Fluzone Quadrivalent Intramuscular Suspension 0.5 ML 13: 05:26 CDT CPT-87600 Administration single or combination vaccine inc oral 11 :49:51 CDT CPT-85832 Pneumovax 11:49:51 CDT CPT-17312 Ribs unilateral 2V 12:37:22 LAB MANAGER CPT-88457 Chest 2V Frontal and Lat 17:15:26 CDT CPT-22159 Abx/Therapy Injection 18:54:02 CDT CPT-J0696 Rocephin 1000 mg (Ceftriaxone) 16:00:32 CDT CPT-80860 Chest 2V Frontal and Lat 15:26:45 CDT CPT-76328 Chest 2V Frontal and Lat 10:23:27 CDT CPT-39714 Venipuncture Draw Fee 10:11:00 CDT CPT-75407 Administration single or combination vaccine inc oral 11 :56:38 CDT CPT-20608 Influenza split virus > age 3 11:56:38 CDT CPT-34504 Venipuncture Draw Fee 08:49:54 LAB MANAGER CPT-25878 EKG Trac and Interp 17:54:19 LAB MANAGER
--- OUTSIDE RECORDS SUMMARY | 2018-07-02 15:44 | XMS REPORT | Clinical Summary ---
Author Author Admin, TERELL Organization [facility] Address Unknown Phone Unavailable Allergies, Adverse 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 Erazo [employer]AL [employer]ING HELPER Benign paroxysmal positional vertigo Vertigo, benign paroxysmal position 386.11 Inactive Mima Erazo [employer] B[employer]ING HELPER Benign paroxysmal positional vertigo High-risk sexual behavior V69.2 Active Alina Castaneda MD PhD High-risk sexual behavior Erectile dysfunction 302.72 Active Alina Castaneda MD PhD Psychosexual dysfunction with inhibited sexual excitement Constipation 564.00 Active Alina Castaneda MD PhD Constipation, unspecified Skin lesion 709.9 Active Alina Castaneda MD PhD Unspecified disorder of skin and subcutaneous tissue Malaise and fatigue 780.79 Active Cherelle Speaks METAL BONDING HELPER Other malaise and fatigue Diarrhea 787.91 Active Cherelle Speaks METAL BONDING HELPER Diarrhea PHARYNGITIS 462 Active Cherelle Speaks METAL BONDING HELPER Acute pharyngitis Colitis 558.9 Active Mima Erazo METAL BONDING HELPER Other and unspecified noninfectious gastroenteritis and colitis WOUND, OPEN, NOSE ICD-873.20 Inactive Alina Castaneda MD PhD DIABETES, TYPE 2 ICD-250.00 Inactive Alina aCstaneda MD PhD HYPERTENSION ICD-401.9 Inactive Alina Castaneda MD PhD URI ICD-465.9 Inactive Alina Castaneda MD PhD CHEST PAIN ICD-786.50 Inactive Alina Castaneda MD PhD FH STROKE ICD-V17.1 Inactive Marvel 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 FATIGUE ICD-780.79 Inactive Alina Castaneda MD [...] MD PhD Chest pain, atypical ICD-786.59 Inactive lAina Castaneda MD PhD Medication List Medication Instructions Start Date Stop Date Generic Name NDC Status Provider Patient Instruction FLONASE ALLERGY RELIEF 50 MCG/ACT NASAL SUSP One spray each nostril BID x 1 week then daily FLUTICASONE PROPIONATE 67323170914 Active Mima Erazo METAL BONDING HELPER Active BD PEN NEEDLE MINI U/F 31G X 5 MM MISC 4 a day INSULIN PEN NEEDLE 90701142853 Active Marvel Mackenzieglestela ELECTRIC PILE DRIVER OPERATOR Active AMITIZA 24 MCG ORAL CAPS Take one capsule BID for constipation LUBIPROSTONE 44507731364 Active Mima Erazo METAL BONDING HELPER Active LEVEMIR FLEXTOUCH 100 UNIT/ML SC SOPN 75 units SQ each evening, for diabetes INSULIN DETEMIR 04927081962 Active CRYSTAL Rodrigues Active TRUEPLUS LANCETS 30G MISC 3 a day LANCETS 15662828852 Active Marvel MARROQUIN Active TOLTERODINE TARTRATE 2 MG TABS 1 pill twice daily, for bladder TOLTERODINE TARTRATE 57219206402 No Longer Active Vanessa Hickey MD Active AMITIZA 24 MCG ORAL CAPS Take one capsule BID for constipation. LUBIPROSTONE 55558723251 No Longer Active Vanessa Hickey MD Active LOMOTIL 2.5-0.025 MG ORAL TABS take 1-2 tabs PO after each stool, no more than 8 in 24 hours DIPHENOXYLATE-ATROPINE 58261604743 Active Grace Azam RMA Active FLUVOXAMINE MALEATE 100 MG ORAL TABS take one tab every AM et HS, and take 1/ 2 tab at noon FLUVOXAMINE MALEATE 76366556817 Active Grace Azam RMA Active METOPROLOL SUCCINATE 100 MG [id number] 1 by mouth daily for blood pressure METOPROLOL SUCCINATE 11129374071 No Longer Active Grace Azam RMA Active METFORMIN HCL ER 500 MG FQ96R-KJL Take three tablets by mouth everyday METFORMIN HCL 50422336464 No Longer Active Grace Azam RMA Active LOVAZA 1 GM CAPS 4 daily (for triglycerides) OMEGA-3- ACID ETHYL ESTERS 63695179245 No Longer Active Grace Azam RMA Active TRAZODONE HCL 100 MG ORAL TABS 1 tab by mouth for sleep TRAZODONE HCL 36016803858 No Longer Active Grace Azam RMA Active NOVOFINE 32G X 6 MM MISC use one four times per day INSULIN PEN NEEDLE 16391250860 No Longer Active Grace Azam RMA Active BACTROBAN 2 % CREAM Apply to affected area BID for up to 10 days MUPIROCIN CALCIUM 71656136911 No Longer Active Grace Azam RMA Active ZOFRAN 4 MG TABS 1 po q4hr PRN [place]ausea ONDANSETRON HCL 61774374598 Active Salina Ervinford RMA Active KEFLEX 500 MG CAP 1 po BID x 7 days CEPHALEXIN 36166935812 No Longer Active Cherelle Avila METAL BONDING HELPER Active FLUVOXAMINE MALEATE 100 MG TABS Take one (1) tablet by mouth am, 1/2 at noon FLUVOXAMINE MALEATE 78262506026 No Longer Active Mima Erazo METAL BONDING HELPER Active CORICIDIN HBP CONGESTION/COUGH 10-200 MG ORAL CAPS Take as directed on box as needed for cold/flu symptoms DEXTROMETHORPHAN-GUAIFENESIN 62926220010 Active Cherelle Avila METAL BONDING HELPER Active OMEGA-3 300 MG ORAL CAPS 4 caps by mouth daily OMEGA-3 FATTY ACIDS 19736531518 Active Mima Erazo METAL BONDING HELPER Active FLUVOXAMINE MALEATE 100 MG ORAL TABS Take 1/2 tab at noon FLUVOXAMINE MALEATE 37288582551 No Longer Active Cherelle Avila METAL BONDING HELPER Active [facility] LUBRICANT EYE DROPS 0.4-0.3 % OPHTH SOLN POLYETHYL GLYCOL-PROPYL GLYCOL 26136594026 Active Mima Erazo METAL BONDING HELPER Active CLONAZEPAM 1 MG TABS 1/2 pill by mouth three times daily CLONAZEPAM 92846152297 Active Alina Castaneda MD PhD Active MIRALAX POWD 17g by mouth daily, for constipation POLYETHYLENE GLYCOL 3350 01186181572 Active Alina Castaneda MD PhD Active HYDROCODONE-ACETAMINOPHEN 5-325 MG TABS 2 tabs by mouth three times daily for pain HYDROCODONE-ACETAMINOPHEN 45805378531 Active Mima Erazo METAL BONDING HELPER Active HUMALOG KWIKPEN 100 UNIT/ML SC SOPN 20 units with breakfast, 10 units with lunch, 10 units with dinner, for diabetes INSULIN LISPRO (HUMAN ) 16917818265 Active Alina Castaneda MD PhD Active LATUDA 120 MG ORAL TABS 1 pill by mouth nightly LURASIDONE HCL 30606807509 Active Alina Castaneda MD PhD Active COLACE 100 MG CAPS 1 pill by mouth twice daily, for constipation DOCUSATE SODIUM 74741129757 Active Alina Castaneda MD PhD Active TRUETEST TEST STRP check blood sugars 3x/day GLUCOSE BLOOD 04481720029 Active Marvel MARROQUIN Active ACCU-CHEK ROSA UZMA Use device to check blood sugars BLOOD GLUCOSE MONITORING SUPPL 42622692390 No Longer Active Marvel MARROQUIN Active ACCU-CHEK ROSA INVITR STRP use strips with device to check blood sugars 3 times daily GLUCOSE BLOOD 46788673178 No Longer Active Marvel MARROQUIN Active VERAPAMIL HCL ER 180 MG ORAL CR-TABS 1 pill by mouth twice daily, for migraine prevention VERAPAMIL HCL 29660681699 Active Alina Castaneda MD PhD Active CYCLOBENZAPRINE HCL 10 MG TABS 1 tablet by mouth three times daily, scheduled CYCLOBENZAPRINE HCL 37161475353 No Longer Active Alina Castaneda MD PhD Active HUMALOG 100 UNIT/ML SOLN Take 20 units with breakfast, 10u with lunch and suppetr. INSULIN LISPRO (HUMAN) 66746656961 No Longer Active Alina Castaneda MD PhD Active TRUETEST TEST STRP check sugars 4x/day GLUCOSE BLOOD 31627491974 No Longer Active Alina Castaneda MD PhD Active MORPHINE SULFATE 30 MG TABS 1 pill by mouth twice daily, for pain MORPHINE SULFATE 20799979902 Active Mima Erazo METAL BONDING HELPER Active ACYCLOVIR 400 MG ORAL TABS 1 pill three times daily x 5 days, for cold sore outbreak ACYCLOVIR 77211264519 No Longer Active Alina Castaneda MD PhD Active PENICILLIN V POTASSIUM 500 MG TABS 1 pill by mouth three times daily PENICILLIN V POTASSIUM 69475765761 No Longer Active Alina Castaneda MD PhD Active UROXATRAL 10 MG [id number] Take 1 tablet by mouth daily ALFUZOSIN HCL 34809856172 No Longer Active Alina Castaneda MD PhD Active THIOTHIXENE 5 MG CAPS by mouth twice a day THIOTHIXENE 79356088503 No Longer Active Alina Castaneda MD PhD Active ZYPREXA 7.5 MG TABS 1 at HS OLANZAPINE 43475750939 No Longer Active Alina Castaneda MD PhD Active BD INSULIN SYRINGE 28G X 1/2" 1 ML MISC 1 four times per day INSULIN SYRINGE-NEEDLE U-100 34567294928 Active Marvel MARROQUIN Active DETROL LA 4 MG [id number]-PAH Take 1 tablet by mouth daily TOLTERODINE TARTRATE 34375089901 No Longer Active Alina Castaneda MD PhD Active TERESE CONTOUR TEST STRP monitor blood sugars 3x/day GLUCOSE BLOOD 26911042620 No Longer Active Alina Castaneda MD PhD Active EQL TRUETEST TEST STRP Test blood sugar TID GLUCOSE BLOOD 04173534277 No Longer Active Alina Castaneda MD PhD Active FLUTICASONE PROPIONATE 50 MCG/ACT SUSP 2 sprays each nostril qDay x 30 days FLUTICASONE PROPIONATE 14324332617 No Longer Active Alina Castaneda MD PhD Active IBUPROFEN 200 MG TABS 1 Q 6 hr. PRN IBUPROFEN 56586748915 No Longer Active Alina Castaneda MD PhD Active NIACIN ER 500 MG CR-TABS 4 qHS (for triglycerides) NIACIN 01546464687 No Longer Active Alina Castaneda MD PhD Active ALFUZOSIN HCL ER 10 MG [id number] 1 tablet daily ALFUZOSIN HCL 55396537029 Active Vanessa Hickey MD Active SAPHRIS 5 MG SUBL by mouth twice a day ASENAPINE MALEATE 01886200578 No Longer Active Marvel MARROQUIN Active ACETAMINOPHEN 500 MG TABS 2 Q 6 hr. PRN ACETAMINOPHEN 75617635771 No Longer Active Marvel MARROQUIN Active ORPHENADRINE CITRATE ER 100 MG [id number] 1 every 12 hr. as needed ORPHENADRINE CITRATE 46085639359 No Longer Active Alina Castaneda MD PhD Active NIACIN CR 500 MG CR-TABS 2 qHS NIACIN 17992166343 No Longer Active Alina Castaneda MD PhD Active AMOXICILLIN 500 MG CAPS 2 po BID x 10 days AMOXICILLIN 66390616228 No Longer Active Alina Castaneda MD PhD Active HYDROCODONE-ACETAMINOPHEN 7.5-325 MG TABS 1 four times a day as needed for pain HYDROCODONE-ACETAMINOPHEN 07970656195 No Longer Active Alina Castaneda MD PhD Active DOXEPIN HCL 10 MG CAPS Take 1 tablet by mouth daily DOXEPIN HCL 33726557313 No Longer Active Salina Han A Active NAVANE 10 MG CAPS 1/2 tablet twice a day THIOTHIXENE No Longer Active Salina Han A Active CYCLOBENZAPRINE HCL 10 MG TABS 1/2 tablet by mouth every 8 hours as needed for muscle spasms CYCLOBENZAPRINE HCL 11866999658 No Longer Active Alina Castaneda MD PhD Active BACTROBAN 2 % CREAM apply to ear and nose twice daily MUPIROCIN CALCIUM 29695611478 No Longer Active Alina Castaneda MD PhD Active HYDROCODONE-ACETAMINOPHEN 5-325 MG TABS take one tablet by mouth every four hours as needed for pain HYDROCODONE-ACETAMINOPHEN 66313791627 No Longer Active Alina Castaneda MD PhD Active ZOLPIDEM TARTRATE 10 MG TABS take at bedtime ZOLPIDEM TARTRATE 67687716634 Active Alina Castaneda MD PhD Active ZYPREXA 5 MG TABS take one tablet by mouth every evening OLANZAPINE 39180075386 No Longer Active Alina Castaneda MD PhD Active ALBUTEROL SULFATE 0.083 % NEBU SOLN one vial per nebulizer TID and PRN cough/ soa ALBUTEROL SULFATE 18763540042 No Longer Active Alina Castaneda MD PhD Active GUAIFENESIN 600 MG [id number] 1 tablet by mouth twice daily if needed for cough GUAIFENESIN 96854087423 No Longer Active Marvel MARROQUIN Active AZITHROMYCIN 500 MG SOLR 1 po q day AZITHROMYCIN 62775064242 No Longer Active Alina Castaneda MD PhD Active PROMETHAZINE-CODEINE 6.25-10 MG/5ML SYRP 1 tsp po q 6 hours prn cough PROMETHAZINE-CODEINE 62973867006 No Longer Active Alina Castaneda MD PhD Active CEFDINIR 300 MG CAPS by mouth twice a day CEFDINIR 16868386209 No Longer Active Alina Castaneda MD PhD Active METFORMIN HCL 500 MG [id number] Take 3 tablets by mouth everyday METFORMIN HCL 79608533498 No Longer Active Alina Castaneda MD PhD Active LEVEMIR 100 UNIT/ML SOLN 90 units SQ qHS INSULIN DETEMIR 13883181353 No Longer Active Marvel MARROQUIN Active TOPROL XL 100 MG [id number]-JDR 1 @ HS METOPROLOL SUCCINATE 15486639922 No Longer Active Marvel MARROQUIN Active ALLOPURINOL 300 MG TABS Take one by mouth daily ALLOPURINOL 81968689705 Active Alina Castaneda MD PhD Active ZYPREXA 10 MG TABS Take one by mouth daily OLANZAPINE 21152788569 No Longer Active Alina Castaneda MD PhD Active NOVOLOG 100 UNIT/ML SOLN 40 units with every meal INSULIN ASPART 72365797327 No Longer Active Alina Castaneda MD PhD Active VERAPAMIL HCL CR 120 MG TAB CR 1 qPM VERAPAMIL HCL 84886802369 No Longer Active Salina Emely ROJAS Active ZYPREXA 15 MG TABS Take 1 tablet by mouth daily OLANZAPINE 86087038286 No Longer Active Marvel MARROQUIN Active LISINOPRIL 20 MG TABS 1 BID LISINOPRIL 40488927951 Active Alina Castaneda MD PhD Active ALBUTEROL SULFATE (2.5 MG/3ML) 0.083% NEBU 1 neb tid and prn cough ALBUTEROL SULFATE 02134314762 No Longer Active Alina Castaneda MD PhD Active TRAVATAN Z 0.004 % SOLN 1 gtt each eye daily TRAVOPROST 57419425013 Active CRYSTAL Suarez Active LANTUS 100 UNIT/ML SOLN 60 units sq q hs INSULIN GLARGINE 34442807143 No Longer Active CRYSTAL Suarez Active ALBUTEROL SULFATE (2.5 MG/3ML) 0.083% NEBU 1 neb tid and prn cough ALBUTEROL SULFATE (2.5 MG/3ML) 0.083% NEBU 413431 ALBUTEROL SULFATE Inactive ZYPREXA 15 MG TABS Take 1 tablet by mouth daily ZYPREXA 15 MG TABS 648636 OLANZAPINE Inactive VERAPAMIL HCL CR 120 MG TAB CR 1 qPM VERAPAMIL HCL CR 120 MG TAB CR VERAPAMIL HCL Inactive ZYPREXA 10 MG TABS Take one by mouth daily ZYPREXA 10 MG TABS 730402 OLANZAPINE Inactive TOPROL XL 100 MG [id number] 1 @ HS TOPROL XL 100 MG WO50U-EOI METOPROLOL SUCCINATE Inactive LEVEMIR 100 UNIT/ML SOLN 90 units SQ qHS LEVEMIR 100 UNIT/ML SOLN INSULIN DETEMIR Inactive PROMETHAZINE-CODEINE 6.25-10 MG/5ML SYRP 1 tsp po q 6 hours prn cough PROMETHAZINE-CODEINE 6.25-10 MG/5ML SYRP 135403 PROMETHAZINE- CODEINE Inactive GUAIFENESIN 600 MG DS05V-CYR 1 tablet by mouth twice daily if needed for cough GUAIFENESIN 600 MG [id number]-HOS GUAIFENESIN Inactive ALBUTEROL SULFATE 0.083 % NEBU SOLN one vial per nebulizer TID and PRN cough/ soa ALBUTEROL SULFATE 0.083 % NEBU SOLN 577604 ALBUTEROL SULFATE Inactive ZYPREXA 5 MG TABS take one tablet by mouth every evening ZYPREXA 5 MG TABS 049453 OLANZAPINE Inactive HYDROCODONE-ACETAMINOPHEN 5-325 MG TABS take one tablet by mouth every four hours as needed for pain HYDROCODONE-ACETAMINOPHEN 5-325 MG TABS 334375 HYDROCODONE-ACETAMINOPHEN Inactive BACTROBAN 2 % CREAM apply to ear and nose twice daily BACTROBAN 2 % CREAM 552642 MUPIROCIN CALCIUM Inactive CYCLOBENZAPRINE HCL 10 MG TABS 1/2 tablet by mouth every 8 hours as needed for muscle spasms CYCLOBENZAPRINE HCL 10 MG TABS 905565 CYCLOBENZAPRINE HCL Inactive NAVANE 10 MG CAPS 1/2 tablet twice a day NAVANE 10 MG CAPS THIOTHIXENE Inactive DOXEPIN HCL 10 MG CAPS Take 1 tablet by mouth daily DOXEPIN HCL 10 MG CAPS 5200759 DOXEPIN HCL Inactive HYDROCODONE-ACETAMINOPHEN 7.5-325 MG TABS 1 four times a day as needed for pain HYDROCODONE-ACETAMINOPHEN 7.5-325 MG TABS 009372 HYDROCODONE-ACETAMINOPHEN Inactive NIACIN CR 500 MG CR-TABS 2 qHS NIACIN CR 500 MG CR- TABS NIACIN Inactive ORPHENADRINE CITRATE ER 100 MG [id number] 1 every 12 hr. as needed ORPHENADRINE CITRATE ER 100 MG [id number]-ELZ ORPHENADRINE CITRATE Inactive ACETAMINOPHEN 500 MG TABS 2 Q 6 hr. PRN ACETAMINOPHEN 500 MG TABS 273412 ACETAMINOPHEN Inactive SAPHRIS 5 MG SUBL by mouth twice a day SAPHRIS 5 MG SUBL ASENAPINE MALEATE Inactive NIACIN ER 500 MG CR-TABS 4 qHS (for triglycerides) NIACIN ER 500 MG CR-TABS NIACIN Inactive IBUPROFEN 200 MG TABS 1 Q 6 hr. PRN IBUPROFEN 200 MG TABS 153867 IBUPROFEN Inactive FLUTICASONE PROPIONATE 50 MCG/ACT SUSP 2 sprays each nostril qDay x 30 days FLUTICASONE PROPIONATE 50 MCG/ACT SUSP 454152 FLUTICASONE PROPIONATE Inactive EQL TRUETEST TEST STRP Test blood sugar TID EQL TRUETEST TEST STRP GLUCOSE BLOOD Inactive TERESE CONTOUR TEST STRP monitor blood sugars 3x/day TERESE CONTOUR TEST STRP GLUCOSE BLOOD Inactive DETROL LA 4 MG [id number]-LKZ Take 1 tablet by mouth daily DETROL LA 4 MG [id number] TOLTERODINE TARTRATE Inactive ZYPREXA 7.5 MG TABS 1 at HS ZYPREXA 7.5 MG TABS 287314 OLANZAPINE Inactive THIOTHIXENE 5 MG CAPS by mouth twice a day THIOTHIXENE 5 MG CAPS 927018 THIOTHIXENE Inactive UROXATRAL 10 MG [id number]-LCM Take 1 tablet by mouth daily UROXATRAL 10 MG CA90S-YPD ALFUZOSIN HCL Inactive ACYCLOVIR 400 MG ORAL TABS 1 pill three times daily x 5 days, for cold sore outbreak ACYCLOVIR 400 MG ORAL TABS 430418 ACYCLOVIR Inactive TRUETEST TEST STRP check sugars 4x/day TRUETEST TEST STRP GLUCOSE BLOOD Inactive HUMALOG 100 UNIT/ML SOLN Take 20 units with breakfast, 10u with lunch and suppetr. HUMALOG 100 UNIT/ML SOLN INSULIN LISPRO ( HUMAN) Inactive CYCLOBENZAPRINE HCL 10 MG TABS 1 tablet by mouth three times daily, scheduled CYCLOBENZAPRINE HCL 10 MG TABS 250766 CYCLOBENZAPRINE HCL Inactive ACCU-CHEK ROSA INVITR STRP use strips with device to check blood sugars 3 times daily ACCU-CHEK ROSA INVITR STRP GLUCOSE BLOOD Inactive ACCU-CHEK ROSA UZMA Use device to check blood sugars ACCU-CHEK ROSA UZMA BLOOD GLUCOSE MONITORING SUPPL Inactive FLUVOXAMINE MALEATE 100 MG ORAL TABS Take 1/2 tab at noon FLUVOXAMINE MALEATE 100 MG ORAL TABS 364175 FLUVOXAMINE MALEATE Inactive FLUVOXAMINE MALEATE 100 MG TABS Take one (1) tablet by mouth am, 1/2 at noon FLUVOXAMINE MALEATE 100 MG TABS 529962 FLUVOXAMINE MALEATE Inactive BACTROBAN 2 % CREAM Apply to affected area BID for up to 10 days BACTROBAN 2 % CREAM 745777 MUPIROCIN CALCIUM Inactive NOVOFINE 32G X 6 MM MISC use one four times per day NOVOFINE 32G X 6 MM MISC INSULIN PEN NEEDLE Inactive TRAZODONE HCL 100 MG ORAL TABS 1 tab by mouth for sleep TRAZODONE HCL 100 MG ORAL TABS 677178 TRAZODONE HCL Inactive LOVAZA 1 GM CAPS 4 daily (for triglycerides) LOVAZA 1 GM CAPS 487533 WKUNB-5-SHDX ETHYL ESTERS Inactive METFORMIN HCL ER 500 MG MA36K-PDG Take three tablets by mouth everyday METFORMIN HCL ER 500 MG ZA02E-DBP METFORMIN HCL Inactive METOPROLOL SUCCINATE 100 MG YZ69C-LFJ 1 by mouth daily for blood pressure METOPROLOL SUCCINATE 100 MG WG33L-HBM METOPROLOL SUCCINATE Inactive AMITIZA 24 MCG ORAL CAPS Take one capsule BID for constipation. AMITIZA 24 MCG ORAL CAPS LUBIPROSTONE Inactive TOLTERODINE TARTRATE 2 MG TABS 1 pill twice daily, for bladder TOLTERODINE TARTRATE 2 MG TABS 190463 TOLTERODINE TARTRATE Inactive CEFDINIR 300 MG CAPS by mouth twice a day CEFDINIR 300 MG CAPS 181337 CEFDINIR Inactive AZITHROMYCIN 500 MG SOLR 1 po q day AZITHROMYCIN 500 MG SOLR 86560753972 AZITHROMYCIN Inactive AMOXICILLIN 500 MG CAPS 2 po BID x 10 days AMOXICILLIN 500 MG CAPS 347636 AMOXICILLIN Inactive PENICILLIN V POTASSIUM 500 MG TABS 1 pill by mouth three times daily PENICILLIN V POTASSIUM 500 MG TABS 477037 PENICILLIN V POTASSIUM Inactive KEFLEX 500 MG CAP 1 po BID x 7 days KEFLEX 500 MG CAP 727438 CEPHALEXIN Inactive Immunizations Vaccine Administration Date Value [...] Fluvirin, Fluarix, Agriflu(>=18 yo)) Fluzone (>3 yrs.) [[id number]] Influenza, seasonal, injectable pneumococcal immunization administered Pneumovax [...] E&M - 3141-9 246.8 [lb_av] Weight Measured Diagnostic Results Date Name Value Unit Range Description Lab Report: Basic Metabolic Panel, HGBA1C, MICROALBUMIN - Chemistry sodium, serum 137 mmol/L 315-233 0916/05/19 potassium, serum 5.2 mmol/L 3.5-5.2 chloride, serum [...] Panel - Chemistry sodium, serum 137 mmol/L 001-175 5915/10/12 potassium, serum 4.8 mmol/L 3.5-5.2 chloride, serum 102 mmol/L 98-107 carbon dioxide, venous blood 27.6 mmol/L 21.0-32.0 blood glucose 168 mg/dL 65-110 calcium, serum 9.0 mg/dL 8.5-10.1 urea nitrogen, blood 15 mg/dL 7-18 creatinine, serum 1.04 mg/dL 0.55-1.30 sodium, serum 138 mmol/L 373-686 7610/11/11 potassium, serum 4.7 mmol/L 3.5-5.2 chloride, serum [...] % 11.6-14.8 platelet count 252 10^3/MM^3 10*3/mm3 070-292 1827/10/12 leukocyte count, blood 5.8 10^3/MM^3 10*3/mm3 4.6-10.2 [...] 240 10^3/MM^3 10*3/mm3 142-424 Lab Report: Chlamydia/GC APTIMA/97291, HIV-1/2 Agn/Dominga/76639, RPR (DX) W ... - Chemistry hepatitis B surface antigen NON-REACTIVE NON-REACTIVE Lab Report: Chlamydia/GC APTIMA/41151, HIV-1/2 Agn/Dominga/22259, RPR (DX) W ... - Lab chlamydia DNA probe NOT DETECTED NOT DETECTED Lab Report: Chlamydia/GC APTIMA/21531, HIV-1/2 Agn/Dominga/12139, RPR (DX) W ... - Microbiology Neisseria gonorrhoeae DNA probe NOT DETECTED NOT DETECTED Lab Report: Chlamydia/GC APTIMA/04716, HIV-1/2 Agn/Dominga/91963, RPR (DX) W ... - Serology rapid plasma reagin antibody titer NON-REACTIVE NON-REACTIVE Lab Report: HGBA1C - Chemistry hemoglobin A1C, blood, as % of total hemoglobin 6.1 % 4.3-6.0 hemoglobin A1C, blood, as % of total hemoglobin 6.3 % 4.3-6.0 Lab Report: Lipid Panel, HEPATIC PANEL, MICROALBUMIN, CBC - Chemistry cholesterol, serum 131 mg/dL 985-559 5687/06/03 bilirubin, serum, total 0.30 mg/dL 0.00-1.00 alanine [...] % 11.6-14.8 platelet count 239 10^3/MM^3 10*3/mm3 303-076 0697/06/03 leukocyte count, blood 7.3 10^3/MM^3 10*3/mm3 4.6-10.2 Lab Report: Lipid Panel, HEPATIC PANEL, MICROALBUMIN, CBC - Lab microalbumin, urine 30 0-19 Lab Report: Lipid Panel, Prostatic Specific Ag, MICROALBUMIN, Uric Acid - Chemistry albumin/creatinine ratio, urine < 30 mg/g mg/g{creat} 0-29 uric acid, serum 4.7 mg/dL 2.6-7.2 cholesterol, serum 142 mg/dL 597-751 3341/06/26 triglyceride, serum, fasting 272 mg/dL 30-200 HDL [...] negative Encounters Code Encounter Date Provider Facility CPT-24381 Level 3 Est. Patient 14:39:00 LCPC Vanessa Hickey MD [facility]-35335 Level 2 Est. Patient 18:43:34 CDT Mima Erazo [facility]-79358 Level 3 Est. Patient 16:22:09 CDT Cherelle Avila [facility]-54622 Level 4 Est. Patient 17:55:14 CDT Mima Erazo [facility]-56239 Level 2 Est. Patient 17:13:21 CDT Alina Castaneda MD [facility]61196 Level 3 Est. Patient 14:46:15 CDT Vanessa Hickey MD [facility]-83411 Level 3 Est. Patient 09:34:56 CDT Alina Castaneda MD [facility]-77575 Level 3 Est. Patient 21:40:19 CDT Mima Erazo [facility] CPT-12274 Level 3 Est. Patient 09:26:40 CDT Marvel Charles [facility][note 3]-53388 Level 3 Est. Patient 12:36:43 CDT Vanessa Hickey MD [facility]-50523 Level 3 Est. Patient 12:57:49 CDT Vanessa Hickey MD [facility]-01588 Level 3 Est. Patient 00:28:25 CDT Alina Castaneda MD [facility]42783 Level 2 Est. Patient 12:52:14 CDT Alina Castaneda MD [facility]02468 Level 3 Est. Patient 11:51:18 LCPC Alina Castaneda MD [facility]72242 Level 3 Est. Patient 10:09:22 LCPC Alina Castaneda MD PhD [facility] CPT-52941 Level 3 Est. Patient 14:36:26 LCPC Marvel Araceli [facility]-96242 Level 3 Est. Patient 13:34:47 LCPC Alina Castaneda MD [facility]-83658 Level 3 Est. Patient 19:52:08 LCPC Alina Castaneda MD [facility]10869 Level 3 Est. Patient 10:01:51 LCPC Marvel Gurdeepanca [facility]-33442 Level 3 Est. Patient 21:54:06 CDT Vanessa Hickey MD [facility]-90317 Level 3 Est. Patient 08:54:46 CDT Alina Castaneda MD [facility]91807 Level 3 Est. Patient 09:32:11 CDT Marvel Araceli [facility]-70335 Level 3 Est. Patient 12:02:49 CDT Alina Castaneda MD [facility]64431 Level 3 Est. Patient 19:17:33 CDT Alina Castaneda MD [facility]39928 Level 3 Est. Patient 13:19:10 CDT Brooksjohn Charles [facility]-39440 Level 3 Est. Patient 08:20:05 CDT Alina Castaneda MD [facility]25755 Level 3 Est. Patient 15:17:18 CDT Alina Castaneda MD [facility]84412 Level 3 Est. Patient 14:25:36 LCPC Marvel Araceli [facility]-81539 Level 3 Est. Patient 10:09:15 LCPC Marvle Araceli [facility]-81537 Level 3 Est. Patient 21:28:43 CDT Alina Castaneda MD [facility]-57681 Level 3 Est. [facility]-39381 Level 4 Est. Patient 19:08:12 CDT Alina Castaneda MD [facility]-03943 Level 3 Est. Patient 15:06:39 CDT Marvel [facility] CPT-64862 Level 4 Est. Patient 17:48:15 CDT Alina Castaneda MD [facility]-77523 Level 3 Est. Patient 14:53:49 CDT Alina Castaneda MD [facility]-89767 Level 3 Est. Patient 09:35:16 CDT Alina Castaneda MD [facility]-09421 Level 3 Est. Patient 12:23:22 CDT Alina Castaneda MD [facility]-30863 Level 3 Est. Patient 16:19:15 CDT Alina Castaneda MD [facility]-25888 Level 3 Est. Patient 21:39:56 LCPC Alina Castaneda MD [facility]-76916 Level 4 Est. Patient 14:12:56 LCPC Alina [facility] [facility]-17081 Level 2 Est. Patient 15:34:57 LCPC Alina Castaneda MD [facility]-92966 Level 3 Est. Patient 12:17:04 LCPC Alina Castaneda MD [facility]-59130 Level 3 Est. Patient 09:18:18 LCPC [facility]-03152 Level 2 Est. Patient 21:50:24 CDT Alina Castaneda MD [facility]-31637 Level 3 Est. Patient 09:17:28 CDT [facility]-62947 Level 4 Est. Patient 18:54:02 CDT Alina Castaneda MD [facility]-57398 Level 3 Est. Patient 10:47:10 CDT Alina Castaneda MD [facility]-76164 Level 3 Est. Patient 09:22:20 CDT [facility]-78874 Level 3 Est. Patient 16:39:43 CDT [facility]-19692 Level 3 Est. Patient 16:05:16 CDT Alina Castaneda MD [facility]-79014 Level 3 Est. Patient 00:29:15 CDT Alina Castaneda MD [facility]-46821 Level 3 Est. Patient 10:49:22 LCPC [facility]-28694 Level 3 Est. Patient 21:30:19 LCPC Alina Castaneda MD [facility]-71966 Level 4 Est. Patient 17:04:11 LCPC [facility]-36384 Level 3 Est. Patient 15:34:11 LCPC [facility]-48882 Level 2 Est. Patient 12:51:58 LCPC Alina Castaneda MD [facility]-32248 Level 3 Est. Patient 13:20:01 LCPC Alina Castaneda MD [facility]-59357 Level 3 Est. Patient 09:23:35 CDT Alina Castaneda MD PhD [facility] Procedures Code Procedure Name Date Entry Date Standard Description CPT-32269 Bladder Scan 14:39:01 LCPC CPT-TCMM Transitional Care Mgmt-Moderate 10:30:19 LCPC CPT-06605 Bladder Scan 12:36:44 CDT CPT-20955 Bladder Scan 21:54:06 CDT CPT-G0008 Administration of Influenza Virus Vaccine 13:05:26 CDT CPT-97763 Fluzone Quadrivalent Intramuscular Suspension 0.5 ML 13: 05:26 CDT CPT-72500 Administration single or combination vaccine inc oral 11 :49:51 CDT CPT-41838 Pneumovax 11:49:51 CDT CPT-49655 Ribs unilateral 2V 12:37:22 LCPC CPT-92936 Chest 2V Frontal and Lat 17:15:26 CDT CPT-18624 Abx/Therapy Injection 18:54:02 CDT CPT-J0696 Rocephin 1000 mg (Ceftriaxone) 16:00:32 CDT CPT-41616 Chest 2V Frontal and Lat 15:26:45 CDT CPT-45710 Chest 2V Frontal and Lat 10:23:27 CDT CPT-67856 Venipuncture Draw Fee 10:11:00 CDT CPT-41173 Administration single or combination vaccine inc oral 11 :56:38 CDT CPT-39124 Influenza split virus > age 3 11:56:38 CDT CPT-05204 Venipuncture Draw Fee 08:49:54 LCPC CPT-84392 EKG Trac and Interp 17:54:19 LCPC
--- OUTSIDE RECORDS SUMMARY | 2018-07-02 15:46 | XMS REPORT | Clinical Summary ---
Author Author Admin, TERELL Organization [facility] [employer] Address Unknown Phone Unavailable Allergies, Adverse Reactions, 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 Erazo BAG TURNER Benign paroxysmal positional vertigo Vertigo, benign paroxysmal position 386.11 Inactive Mima Erazo BAG TURNER Benign paroxysmal positional vertigo High-risk sexual behavior V69.2 Active Alina Castaneda MD PhD High-risk sexual behavior Erectile dysfunction 302.72 Active Alina Castaneda MD PhD Psychosexual dysfunction with inhibited sexual excitement Constipation 564.00 Active Alina Castaneda MD PhD Constipation, unspecified Skin lesion 709.9 Active Alina Castaneda MD PhD Unspecified disorder of skin and subcutaneous tissue Malaise and fatigue 780.79 Active Cherelle Speaks BAG TURNER Other malaise and fatigue Diarrhea 787.91 Active Cherelle Speaks BAG TURNER Diarrhea PHARYNGITIS 462 Active Cherelle Speaks BAG TURNER Acute pharyngitis Colitis 558.9 Active Mima Erazo BAG TURNER Other and unspecified noninfectious gastroenteritis and colitis [...] Provider Patient Instruction TRUEPLUS LANCETS 30G MISC 3x a day LANCETS 86046014067 Active [employer] 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 CREDIT ADJUSTER Active TRUE METRIX METER W/DEVICE KIT Check blood sugars 3x/day BLOOD GLUCOSE MONITORING SUPPL 07466921605 Active Zaineh 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 CREDIT ADJUSTER Active TRUE METRIX BLOOD GLUCOSE TEST INVITR STRP Check blood sugars 3x/day. GLUCOSE BLOOD 80911512326 Active Brooksiheh 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 CREDIT ADJUSTER Active VITAMIN D 2000 UNIT ORAL CAPS Take one by mouth daily CHOLECALCIFEROL 62939028682 Active Mima Yokum BAG TURNER Active LATUDA 60 MG ORAL TABS Take one by mouth daily LURASIDONE HCL 81567189778 No Longer Active Mima Yokum BAG TURNER Active HUMALOG KWIKPEN 100 UNIT/ML SC SOPN sliding scale if needed INSULIN LISPRO (HUMAN) 16081091392 Active Mima Yokum BAG TURNER Active MORPHINE SULFATE 30 MG ORAL TABS by mouth twice a day MORPHINE SULFATE 74487398151 Active Mima Yokum BAG TURNER Active TRAZODONE HCL 100 MG TABS 1 every night to prevent headaches TRAZODONE HCL 73355373568 Active Gabrielle Marquez IN STORE MARKETER Active LATUDA 60 MG ORAL TABS 1 tab daily LURASIDONE HCL 85913641473 Active Gabrielle Littlel IN STORE MARKETER Active CLONAZEPAM 1 MG TABS 1 pill by mouth three times daily CLONAZEPAM 09568318642 Active Gabrielle Littlel IN STORE MARKETER Active [facility] MILK OF MAGNESIA 400 MG/5ML ORAL SUSP 30ml by mouth bid prn MAGNESIUM HYDROXIDE 19682598513 Active Mason Loredo MD Active TYLENOL 8 HOUR 650 MG ORAL CR-TABS 1 tab QID prn ACETAMINOPHEN 84799969182 Active Mason Loredo MD Active MYLANTA GAS RELIEF MAXIMUM STR 125 MG ORAL CAPS 30cc every 4 hours prn 12/01 SIMETHICONE 20286689042 Active Mason Loredo MD Active IMODIUM A-D 2 MG ORAL TABS 1 tab QID as needed LOPERAMIDE HCL 23319465752 Active Mason Loredo MD Active FLUVOXAMINE MALEATE 50 MG ORAL TABS 1 tab by mouth daily FLUVOXAMINE MALEATE 19357150268 Active Mason Loredo MD Active TRAVATAN Z 0.004 % SOLN 1 gtt each eye daily TRAVOPROST 09976814012 No Longer Active Mason Loredo MD Active LISINOPRIL 20 MG TABS 1 BID LISINOPRIL 93391647776 No Longer Active Mason Loredo MD Active LEVEMIR FLEXTOUCH 100 UNIT/ML SC SOPN 60 units SQ each evening, for diabetes INSULIN DETEMIR 09562025954 Active Desi Nicholson Active ZOLPIDEM TARTRATE 10 MG TABS take at bedtime ZOLPIDEM TARTRATE 81937338712 No Longer Active Mason Loredo MD Active HYDROCODONE-ACETAMINOPHEN 5-325 MG TABS 2 tabs by mouth three times daily for pain HYDROCODONE-ACETAMINOPHEN 62541020459 No Longer Active Mason Loredo MD Active ZOFRAN 4 MG TABS 1 po q4hr PRN Nausea ONDANSETRON HCL 35872510936 No Longer Active Mason Loredo MD Active LOMOTIL 2.5-0.025 MG ORAL TABS take 1-2 tabs PO after each stool, no more than 8 in 24 hours DIPHENOXYLATE-ATROPINE 87871691240 No Longer Active Mason Loredo MD Active COLACE 100 MG CAPS 1 pill by mouth twice daily, for constipation DOCUSATE SODIUM 57233942659 No Longer Active Mimacecily Erazo APRN Active FLONASE ALLERGY RELIEF 50 MCG/ACT NASAL SUSP One spray each nostril BID x 1 week then daily FLUTICASONE PROPIONATE 78706782605 Active Mima Yokum BAG TURNER Active BD PEN NEEDLE MINI U/F 31G X 5 MM MISC 4 a day INSULIN PEN NEEDLE 70884684808 Active Mallashondaeh Ziglari CREDIT ADJUSTER Active AMITIZA 24 MCG ORAL CAPS Take one capsule BID for constipation LUBIPROSTONE 50843315128 Active Mimacecily Erazo APRN Active TRUEPLUS LANCETS 30G MISC 3 a day LANCETS 84107523357 Active Maljohn Ziglari CREDIT ADJUSTER Active TOLTERODINE TARTRATE 2 MG TABS 1 pill twice daily, for bladder TOLTERODINE TARTRATE 99465862983 No Longer Active Vanessa Hickey MD Active AMITIZA 24 MCG ORAL CAPS Take one capsule BID for constipation. LUBIPROSTONE 35894468217 No Longer Active Vanessa Hickey MD Active FLUVOXAMINE MALEATE 100 MG ORAL TABS take one tab every AM et HS, and take 1/ 2 tab at noon FLUVOXAMINE MALEATE 28772156910 Active Grace ROJAS Active METOPROLOL SUCCINATE 100 MG [id number] 1 by mouth daily for blood pressure METOPROLOL SUCCINATE 79913109144 No Longer Active Grace ROJAS Active METFORMIN HCL ER 500 MG [id number]-SMI Take three tablets by mouth everyday METFORMIN HCL 44928559487 No Longer Active Grace ROJAS Active LOVAZA 1 GM CAPS 4 daily (for triglycerides) OMEGA-3- ACID ETHYL ESTERS 95082535581 No Longer Active Grace Azam RMA Active TRAZODONE HCL 100 MG ORAL TABS 1 tab by mouth for sleep TRAZODONE HCL 38473484861 No Longer Active Grace Azam RMA Active NOVOFINE 32G X 6 MM MISC use one four times per day INSULIN PEN NEEDLE 32558473576 No Longer Active Grace Azam RMA Active BACTROBAN 2 % CREAM Apply to affected area BID for up to 10 days MUPIROCIN CALCIUM 15693052873 No Longer Active Grace Azam RMA Active KEFLEX 500 MG CAP 1 po BID x 7 days CEPHALEXIN 48920067162 No Longer Active Cherelle Speaks BAG TURNER Active FLUVOXAMINE MALEATE 100 MG TABS Take one (1) tablet by mouth am, 1/2 at noon FLUVOXAMINE MALEATE 24075849145 No Longer Active Mima Yokum BAG TURNER Active CORICIDIN HBP CONGESTION/COUGH 10-200 MG ORAL CAPS Take as directed on box as needed for cold/flu symptoms DEXTROMETHORPHAN-GUAIFENESIN 63884239727 Active Cherelle Speaks BAG TURNER Active OMEGA-3 300 MG ORAL CAPS 4 caps by mouth daily OMEGA-3 FATTY ACIDS 71574834224 Active Mima Yokum BAG TURNER Active FLUVOXAMINE MALEATE 100 MG ORAL TABS Take 1/2 tab at noon FLUVOXAMINE MALEATE 82336363198 No Longer Active Cherelle Speaks BAG TURNER Active [facility] LUBRICANT EYE DROPS 0.4-0.3 % OPHTH SOLN POLYETHYL GLYCOL-PROPYL GLYCOL 92595182358 Active Mima Yokum BAG TURNER Active MIRALAX POWD 17g by mouth daily, for constipation POLYETHYLENE GLYCOL 3350 75110560629 Active Alina Castaneda MD PhD Active TRUETEST TEST STRP check blood sugars 3x/day GLUCOSE BLOOD 40220845816 Active Mallashondaeh Ziglari CREDIT ADJUSTER Active ACCU-CHEK ROSA UZMA Use device to check blood sugars BLOOD GLUCOSE MONITORING SUPPL 84508237125 No Longer Active Maljohn Ziglari CREDIT ADJUSTER Active ACCU-CHEK ROSA INVITR STRP use strips with device to check blood sugars 3 times daily GLUCOSE BLOOD 16158204216 No Longer Active Brooksnivia Mackenzieglari CREDIT ADJUSTER Active VERAPAMIL HCL ER 180 MG ORAL CR-TABS 1 pill by mouth twice daily, for migraine prevention VERAPAMIL HCL 99593399436 Active Mima Erazo BAG TURNER Active CYCLOBENZAPRINE HCL 10 MG TABS 1 tablet by mouth three times daily, scheduled CYCLOBENZAPRINE HCL 18879954429 No Longer Active Alina Castaneda MD PhD Active HUMALOG 100 UNIT/ML SOLN Take 20 units with breakfast, 10u with lunch and suppetr. INSULIN LISPRO (HUMAN) 19062250700 No Longer Active Alina Castaneda MD PhD Active TRUETEST TEST STRP check sugars 4x/day GLUCOSE BLOOD 08849125576 No Longer Active Alina Castaneda MD PhD Active MORPHINE SULFATE 30 MG TABS 1 pill by mouth twice daily, for pain MORPHINE SULFATE 20700582788 No Longer Active Mason Loredo MD Active ACYCLOVIR 400 MG ORAL TABS 1 pill three times daily x 5 days, for cold sore outbreak ACYCLOVIR 43581904658 No Longer Active Alina Castaneda MD PhD Active PENICILLIN V POTASSIUM 500 MG TABS 1 pill by mouth three times daily PENICILLIN V POTASSIUM 41678222012 No Longer Active Alina Castaneda MD PhD Active UROXATRAL 10 MG [id number] Take 1 tablet by mouth daily ALFUZOSIN HCL 08204286922 No Longer Active Alina Castaneda MD PhD Active THIOTHIXENE 5 MG CAPS by mouth twice a day THIOTHIXENE 33721797647 No Longer Active Alina Castaneda MD PhD Active ZYPREXA 7.5 MG TABS 1 at HS OLANZAPINE 38960498771 No Longer Active Alina Castaneda MD PhD Active BD INSULIN SYRINGE 28G X 1/2" 1 ML MISC 1 four times per day INSULIN SYRINGE-NEEDLE U-100 25250407483 Active Maliheh Ziglari CREDIT ADJUSTER Active DETROL LA 4 MG [id number]-GGE Take 1 tablet by mouth daily TOLTERODINE TARTRATE 93292918143 No Longer Active Alina Castaneda MD PhD Active TERESE CONTOUR TEST STRP monitor blood sugars 3x/day GLUCOSE BLOOD 49157314945 No Longer Active Alina Castaneda MD PhD Active EQL TRUETEST TEST STRP Test blood sugar TID GLUCOSE BLOOD 11427670722 No Longer Active Alina Castaneda MD PhD Active FLUTICASONE PROPIONATE 50 MCG/ACT SUSP 2 sprays each nostril qDay x 30 days FLUTICASONE PROPIONATE 16924384364 No Longer Active Alina Castaneda MD PhD Active IBUPROFEN 200 MG TABS 1 Q 6 hr. PRN IBUPROFEN 39170276146 No Longer Active Alina Castaneda MD PhD Active NIACIN ER 500 MG CR-TABS 4 qHS (for triglycerides) NIACIN 69916061585 No Longer Active Alina Castaneda MD PhD Active ALFUZOSIN HCL ER 10 MG IG66P-ULR 1 tablet daily ALFUZOSIN HCL 27971618739 Active Mima Vadimum BAG TURNER Active SAPHRIS 5 MG SUBL by mouth twice a day ASENAPINE MALEATE 67618128489 No Longer Active Marvel Mackenzieglari CREDIT ADJUSTER Active ACETAMINOPHEN 500 MG TABS 2 Q 6 hr. PRN ACETAMINOPHEN 09067132474 No Longer Active Maliheh Ziglari CREDIT ADJUSTER Active ORPHENADRINE CITRATE ER 100 MG TG37L-FHF 1 every 12 hr. as needed ORPHENADRINE CITRATE 69657967461 No Longer Active Alina Castaneda MD PhD Active NIACIN CR 500 MG CR-TABS 2 qHS NIACIN 85322419593 No Longer Active Alina Castnaeda MD PhD Active AMOXICILLIN 500 MG CAPS 2 po BID x 10 days AMOXICILLIN 28470099243 No Longer Active Alina Castaneda MD PhD Active HYDROCODONE-ACETAMINOPHEN 7.5-325 MG TABS 1 four times a day as needed for pain HYDROCODONE-ACETAMINOPHEN 28403937297 No Longer Active Alina Castaneda MD PhD Active DOXEPIN HCL 10 MG CAPS Take 1 tablet by mouth daily DOXEPIN HCL 31167371478 No Longer Active Salina Han [facility] Active NAVANE 10 MG CAPS 1/2 tablet twice a day THIOTHIXENE No Longer Active Salina Han [facility] Active CYCLOBENZAPRINE HCL 10 MG TABS 1/2 tablet by mouth every 8 hours as needed for muscle spasms CYCLOBENZAPRINE HCL 79456863519 No Longer Active Alina Castaneda MD PhD Active BACTROBAN 2 % CREAM apply to ear and nose twice daily MUPIROCIN CALCIUM 64903604893 No Longer Active Alina Castaneda MD PhD Active HYDROCODONE-ACETAMINOPHEN 5-325 MG TABS take one tablet by mouth every four hours as needed for pain HYDROCODONE-ACETAMINOPHEN 71097052323 No Longer Active Alina Castaneda MD PhD Active ZYPREXA 5 MG TABS take one tablet by mouth every evening OLANZAPINE 16394740618 No Longer Active Alina Castaneda MD PhD Active ALBUTEROL SULFATE 0.083 % NEBU SOLN one vial per nebulizer TID and PRN cough/ soa ALBUTEROL SULFATE 62644552684 No Longer Active Alina Castaneda MD PhD Active GUAIFENESIN 600 MG [id number] 1 tablet by mouth twice daily if needed for cough GUAIFENESIN 53922142407 No Longer Active Marvel MARROQUIN Active AZITHROMYCIN 500 MG SOLR 1 po q day AZITHROMYCIN 27305641776 No Longer Active Alina Castaneda MD PhD Active PROMETHAZINE-CODEINE 6.25-10 MG/5ML SYRP 1 tsp po q 6 hours prn cough PROMETHAZINE-CODEINE 67170996712 No Longer Active Alina Castaneda MD PhD Active CEFDINIR 300 MG CAPS by mouth twice a day CEFDINIR 53851224875 No Longer Active Alina Castaneda MD PhD Active METFORMIN HCL 500 MG [id number]-NPJ Take 3 tablets by mouth everyday METFORMIN HCL 32450715680 No Longer Active Alina Castaneda MD PhD Active LEVEMIR 100 UNIT/ML SOLN 90 units SQ qHS INSULIN DETEMIR 15945219224 No Longer Active Marvel MARROQUIN Active TOPROL XL 100 MG [id number] 1 @ HS METOPROLOL SUCCINATE 00532243648 No Longer Active Marvel MARROQUIN Active ALLOPURINOL 300 MG TABS Take one by mouth daily ALLOPURINOL 36958920743 Active Mima Vadimjerrell BAG TURNER Active ZYPREXA 10 MG TABS Take one by mouth daily OLANZAPINE 40548342004 No Longer Active Alina Castaneda MD PhD Active NOVOLOG 100 UNIT/ML SOLN 40 units with every meal INSULIN ASPART 96350719723 No Longer Active Alina Castaneda MD PhD Active VERAPAMIL HCL CR 120 MG TAB CR 1 qPM VERAPAMIL HCL 62691143217 No Longer Active Salina ROJAS Active ZYPREXA 15 MG TABS Take 1 tablet by mouth daily OLANZAPINE 37169826547 No Longer Active Marvel MARROQUIN Active ALBUTEROL SULFATE (2.5 MG/3ML) 0.083% NEBU 1 neb tid and prn cough ALBUTEROL SULFATE 74688665008 No Longer Active Alina Castaneda MD PhD Active LANTUS 100 UNIT/ML SOLN 60 units sq q hs INSULIN GLARGINE 07777223662 No Longer Active CRYSTAL Suarez Active ALBUTEROL SULFATE (2.5 MG/3ML) 0.083% NEBU 1 neb tid and prn cough ALBUTEROL SULFATE (2.5 MG/3ML) 0.083% NEBU 456638 ALBUTEROL SULFATE Inactive ZYPREXA 15 MG TABS Take 1 tablet by mouth daily ZYPREXA 15 MG TABS 181779 OLANZAPINE Inactive VERAPAMIL HCL CR 120 MG TAB CR 1 qPM VERAPAMIL HCL CR 120 MG TAB CR VERAPAMIL HCL Inactive ZYPREXA 10 MG TABS Take one by mouth daily ZYPREXA 10 MG TABS 567914 OLANZAPINE Inactive TOPROL XL 100 MG [id number] 1 @ HS TOPROL XL 100 MG LS99C-HLG METOPROLOL SUCCINATE Inactive LEVEMIR 100 UNIT/ML SOLN 90 units SQ qHS LEVEMIR 100 UNIT/ML SOLN INSULIN DETEMIR Inactive PROMETHAZINE-CODEINE 6.25-10 MG/5ML SYRP 1 tsp po q 6 hours prn cough PROMETHAZINE-CODEINE 6.25-10 MG/5ML SYRP 700432 PROMETHAZINE- CODEINE Inactive GUAIFENESIN 600 MG QB19X-SGS 1 tablet by mouth twice daily if needed for cough GUAIFENESIN 600 MG XX16E-QPX GUAIFENESIN Inactive ALBUTEROL SULFATE 0.083 % NEBU SOLN one vial per nebulizer TID and PRN cough/ soa ALBUTEROL SULFATE 0.083 % NEBU SOLN 533981 ALBUTEROL SULFATE Inactive ZYPREXA 5 MG TABS take one tablet by mouth every evening ZYPREXA 5 MG TABS 168044 OLANZAPINE Inactive HYDROCODONE-ACETAMINOPHEN 5-325 MG TABS take one tablet by mouth every four hours as needed for pain HYDROCODONE-ACETAMINOPHEN 5-325 MG TABS 273400 HYDROCODONE-ACETAMINOPHEN Inactive BACTROBAN 2 % CREAM apply to ear and nose twice daily BACTROBAN 2 % CREAM 930847 MUPIROCIN CALCIUM Inactive CYCLOBENZAPRINE HCL 10 MG TABS 1/2 tablet by mouth every 8 hours as needed for muscle spasms CYCLOBENZAPRINE HCL 10 MG TABS 935860 CYCLOBENZAPRINE HCL Inactive NAVANE 10 MG CAPS 1/2 tablet twice a day NAVANE 10 MG CAPS THIOTHIXENE Inactive DOXEPIN HCL 10 MG CAPS Take 1 tablet by mouth daily DOXEPIN HCL 10 MG CAPS 1283314 DOXEPIN HCL Inactive HYDROCODONE-ACETAMINOPHEN 7.5-325 MG TABS 1 four times a day as needed for pain HYDROCODONE-ACETAMINOPHEN 7.5-325 MG TABS 879173 HYDROCODONE-ACETAMINOPHEN Inactive NIACIN CR 500 MG CR-TABS 2 qHS NIACIN CR 500 MG CR- TABS NIACIN Inactive ORPHENADRINE CITRATE ER 100 MG WY00I-CIY 1 every 12 hr. as needed ORPHENADRINE CITRATE ER 100 MG IH60C-OJD ORPHENADRINE CITRATE Inactive ACETAMINOPHEN 500 MG TABS 2 Q 6 hr. PRN ACETAMINOPHEN 500 MG TABS 444907 ACETAMINOPHEN Inactive SAPHRIS 5 MG SUBL by mouth twice a day SAPHRIS 5 MG SUBL ASENAPINE MALEATE Inactive NIACIN ER 500 MG CR-TABS 4 qHS (for triglycerides) NIACIN ER 500 MG CR-TABS NIACIN Inactive IBUPROFEN 200 MG TABS 1 Q 6 hr. PRN IBUPROFEN 200 MG TABS 499106 IBUPROFEN Inactive FLUTICASONE PROPIONATE 50 MCG/ACT SUSP 2 sprays each nostril qDay x 30 days FLUTICASONE PROPIONATE 50 MCG/ACT SUSP 4629170 FLUTICASONE PROPIONATE Inactive EQL TRUETEST TEST STRP Test blood sugar TID EQL TRUETEST TEST STRP GLUCOSE BLOOD Inactive TERESE CONTOUR TEST STRP monitor blood sugars 3x/day TERESE CONTOUR TEST STRP GLUCOSE BLOOD Inactive DETROL LA 4 MG [id number] Take 1 tablet by mouth daily DETROL LA 4 MG [id number]-GQD TOLTERODINE TARTRATE Inactive ZYPREXA 7.5 MG TABS 1 at HS ZYPREXA 7.5 MG TABS 282948 OLANZAPINE Inactive THIOTHIXENE 5 MG CAPS by mouth twice a day THIOTHIXENE 5 MG CAPS 928008 THIOTHIXENE Inactive UROXATRAL 10 MG [id number] Take 1 tablet by mouth daily UROXATRAL 10 MG KS86J-QYB ALFUZOSIN HCL Inactive ACYCLOVIR 400 MG ORAL TABS 1 pill three times daily x 5 days, for cold sore outbreak ACYCLOVIR 400 MG ORAL TABS 395164 ACYCLOVIR Inactive TRUETEST TEST STRP check sugars 4x/day TRUETEST TEST STRP GLUCOSE BLOOD Inactive HUMALOG 100 UNIT/ML SOLN Take 20 units with breakfast, 10u with lunch and suppetr. HUMALOG 100 UNIT/ML SOLN INSULIN LISPRO ( HUMAN) Inactive CYCLOBENZAPRINE HCL 10 MG TABS 1 tablet by mouth three times daily, scheduled CYCLOBENZAPRINE HCL 10 MG TABS 220502 CYCLOBENZAPRINE HCL Inactive ACCU-CHEK ROSA INVITR STRP use strips with device to check blood sugars 3 times daily ACCU-CHEK ROSA INVITR STRP GLUCOSE BLOOD Inactive ACCU-CHEK ROSA UZMA Use device to check blood sugars ACCU-CHEK ROSA UZMA BLOOD GLUCOSE MONITORING SUPPL Inactive FLUVOXAMINE MALEATE 100 MG ORAL TABS Take 1/2 tab at noon FLUVOXAMINE MALEATE 100 MG ORAL TABS 230844 FLUVOXAMINE MALEATE Inactive FLUVOXAMINE MALEATE 100 MG TABS Take one (1) tablet by mouth am, 1/2 at noon FLUVOXAMINE MALEATE 100 MG TABS 434254 FLUVOXAMINE MALEATE Inactive BACTROBAN 2 % CREAM Apply to affected area BID for up to 10 days BACTROBAN 2 % CREAM 798411 MUPIROCIN CALCIUM Inactive NOVOFINE 32G X 6 MM MISC use one four times per day NOV[facility]INE 32G X [facility] INS[facility] PEN NEEDLE Inactive TRAZODONE HCL 100 MG ORAL TABS 1 tab by mouth for sleep TRAZODONE HCL 100 MG ORAL TABS 720621 TRAZODONE HCL Inactive LOVAZA 1 GM CAPS 4 daily (for triglycerides) LOVAZA 1 GM CAPS 786526 HXPFB-1-OWYO ETHYL ESTERS Inactive METFORMIN HCL ER 500 MG LQ44B-OIA Take three tablets by mouth everyday METFORMIN HCL ER 500 MG WQ13L-SFH METFORMIN HCL Inactive METOPROLOL SUCCINATE 100 MG TQ34N-NYK 1 by mouth daily for blood pressure METOPROLOL SUCCINATE 100 MG DQ50M-NPW METOPROLOL SUCCINATE Inactive AMITIZA 24 MCG ORAL CAPS Take one capsule BID for constipation. AMITIZA 24 MCG ORAL CAPS LUBIPROSTONE Inactive TOLTERODINE TARTRATE 2 MG TABS 1 pill twice daily, for bladder TOLTERODINE TARTRATE 2 MG TABS 179598 TOLTERODINE TARTRATE Inactive COLACE 100 MG CAPS 1 pill by mouth twice daily, for constipation COLACE 100 MG CAPS 3518220 DOCUSATE SODIUM Inactive LOMOTIL 2.5-0.025 MG ORAL TABS take 1-2 tabs PO after each stool, no more than 8 in 24 hours LOMOTIL 2.5-0.025 MG ORAL TABS 3358407 DIPHENOXYLATE-ATROPINE Inactive ZOFRAN 4 MG TABS 1 po q4hr PRN Nausea ZOFRAN 4 MG TABS 600825 ONDANSETRON HCL Inactive HYDROCODONE-ACETAMINOPHEN 5-325 MG TABS 2 tabs by mouth three times daily for pain HYDROCODONE-ACETAMINOPHEN 5-325 MG TABS 394739 HYDROCODONE-ACETAMINOPHEN Inactive ZOLPIDEM TARTRATE 10 MG TABS take at bedtime ZOLPIDEM TARTRATE 10 MG TABS 373810 ZOLPIDEM TARTRATE Inactive LISINOPRIL 20 MG TABS 1 BID LISINOPRIL 20 MG TABS 850549 LISINOPRIL Inactive TRAVATAN Z 0.004 % SOLN 1 gtt each eye daily TRAVATAN Z 0.004 % SOLN TRAVOPROST Inactive LATUDA 60 MG ORAL TABS Take one by mouth daily LATUDA 60 MG ORAL TABS LURASIDONE HCL Inactive CEFDINIR 300 MG CAPS by mouth twice a day CEFDINIR 300 MG CAPS 631229 CEFDINIR Inactive AZITHROMYCIN 500 MG SOLR 1 po q day AZITHROMYCIN 500 MG SOLR 97985329137 AZITHROMYCIN Inactive AMOXICILLIN 500 MG CAPS 2 po BID x 10 days AMOXICILLIN 500 MG CAPS 128723 AMOXICILLIN Inactive PENICILLIN V POTASSIUM 500 MG TABS 1 pill by mouth three times daily PENICILLIN V POTASSIUM 500 MG TABS 664273 PENICILLIN V POTASSIUM Inactive KEFLEX 500 MG CAP 1 po BID x 7 days KEFLEX 500 MG CAP 859732 CEPHALEXIN Inactive Immunizations Vaccine Administration Date Value [...] Fluvirin, Fluarix, Agriflu(>=18 yo)) Fluzone (>3 yrs.) [[id number]] Influenza, seasonal, injectable pneumococcal immunization administered Pneumovax [...] Panel - Chemistry sodium, serum 137 mmol/L 710-289 9090/10/12 potassium, serum 4.8 mmol/L 3.5-5.2 chloride, serum 102 mmol/L 98-107 carbon dioxide, venous blood 27.6 mmol/L 21.0-32.0 blood glucose 168 mg/dL 65-110 calcium, serum 9.0 mg/dL 8.5-10.1 urea nitrogen, blood 15 mg/dL 7-18 creatinine, serum 1.04 mg/dL 0.55-1.30 sodium, serum 138 mmol/L 846-647 2744/11/11 potassium, serum 4.7 mmol/L 3.5-5.2 chloride, serum [...] % 11.6-14.8 platelet count 240 10^3/MM^3 10*3/mm3 220-220 9337/11/11 leukocyte count, blood 9.6 10^3/MM^3 10*3/mm3 4.6-10.2 [...] Acid - Chemistry cholesterol, serum 187 mg/dL 803-269 2168/06/14 triglyceride, serum, fasting 246 mg/dL 30-200 HDL [...] negative Encounters Code Encounter Date Provider Facility CPT-86326 Level 3 Est. Patient 17:40:16 CDT Mima Erazo [facility][note 3] CPT-25089 Level 3 Est. Patient 14:34:52 CDT Vanessa Hickey MD [facility] CPT-95286 Level 3 Est. Patient 16:27:51 CDT Mima Erazo [facility] CPT-35731 Level 3 Est. 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 Patient 18:43:34 CDT Mima Erazo [facility] CPT-98900 Level 3 Est. Patient 16:22:09 CDT Cherelle Avila [facility]-71863 Level 4 Est. Patient 17:55:14 CDT Mima Erazo [facility] CPT-52677 Level 2 Est. Patient 17:13:21 CDT Alina Castaneda MD [facility]15310 Level 3 Est. Patient 14:46:15 CDT Vanessa Hickey MD [facility]-73511 Level 3 Est. Patient 09:34:56 CDT Alina Castaneda MD [facility]97512 Level 3 Est. Patient 21:40:19 CDT Mima Erazo [facility]-32487 Level 3 Est. Patient 09:26:40 CDT Marvel Charles [facility]29759 Level 3 Est. Patient 12:36:43 CDT Vanessa Hickey MD [facility]-07144 Level 3 Est. Patient 12:57:49 CDT Vanessa Hickey MD [facility]12354 Level 3 Est. Patient 00:28:25 CDT Alina Castaneda MD [facility]-50279 Level 2 Est. Patient 12:52:14 CDT Alina Castaneda MD [facility]49360 Level 3 Est. Patient 11:51:18 [employer]PER[employer] Alina Castaneda MD [facility]37396 Level 3 Est. Patient 10:09:22 [employer] SUPERVISOR Alina Castaneda MD [facility]44935 Level 3 Est. Patient 14:36:26 [employer]PER[employer]OR Marvel Charles [facility]-43041 Level 3 Est. Patient 13:34:47 [employer]ING SUPERVISOR Alina Castaneda MD [facility]-21023 Level 3 Est. Patient 19:52:08 [employer] SUPERVISOR Alina Castaneda MD [facility]-58508 Level 3 Est. Patient 10:01:51 [employer]ING SUPERVISOR Brookslashondanivia Araceli [facility]-78360 Level 3 Est. Patient 21:54:06 CDT Vanessa Hickey MD [facility]-64856 Level 3 Est. Patient 08:54:46 CDT Alina Castaneda MD [facility]17072 Level 3 Est. Patient 09:32:11 CDT Marvel Charles [facility]-06846 Level 3 Est. Patient 12:02:49 CDT Alina Castaneda MD [facility]-89872 Level 3 Est. Patient 19:17:33 CDT Alina Castaneda MD [facility]-55580 Level 3 Est. Patient 13:19:10 CDT Marvel Charles [facility]-79365 Level 3 Est. Patient 08:20:05 CDT Alina Castaneda MD [facility]-12954 Level 3 Est. Patient 15:17:18 CDT Alina Castaneda MD [facility]-31966 Level 3 Est. Patient 14:25:36 [employer]ING SUPERVISOR Brooksjohn Charles [facility]-70050 Level 3 Est. Patient 10:09:15 [employer]ING SUPERVISOR Brooksjohn Charles [facility]-56565 Level 3 Est. Patient 21:28:43 CDT Alina Castaneda MD [facility]-64852 Level 3 Est. Patient 15:20:11 CDT Maliheh Ziglari [facility]-29996 Level 4 Est. Patient 19:08:12 CDT Alina Castaneda MD [facility]-66662 Level 3 Est. Patient 15:06:39 CDT Brooksnivia Charles [facility]-61920 Level 4 Est. Patient 17:48:15 CDT Alina Castaneda MD [facility]-85430 Level 3 Est. Patient 14:53:49 CDT Alina Castaneda MD [facility]-17704 Level 3 Est. Patient 09:35:16 CDT Alina Castaneda MD [facility]-28382 Level 3 Est. Patient 12:23:22 CDT Alina Castaneda MD [facility]-32306 Level 3 Est. Patient 16:19:15 CDT Alina Castaneda MD [facility]-26199 Level 3 Est. 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 Patient 12:17:04 [employer] MANUFACTURING SUPERVISOR Alina Castaneda MD [facility]-98996 Level 3 Est. Patient 09:18:18 [employer] MANUFACTURING SUPERVISOR Marvel Charles [facility]-29100 Level 2 Est. Patient 21:50:24 CDT Alina Castaneda MD [facility]91733 Level 3 Est. Patient 09:17:28 CDT Marvel Charles [facility] CPT-46037 Level 4 Est. Patient 18:54:02 CDT Alina Castaneda MD [facility] CPT-75350 Level 3 Est. Patient 10:47:10 CDT Alina Castaneda MD [facility]-41607 Level 3 Est. Patient 09:22:20 CDT Brooksjohn Charles [facility] CPT-69999 Level 3 Est. Patient 16:39:43 [facility] CPT-90276 Level 3 Est. Patient 16:05:16 CDT Alina Castaneda MD [facility] CPT-63520 Level 3 Est. Patient 00:29:15 CDT Alina Castaneda MD [facility] CPT-36926 Level 3 Est. Patient 10:49:22 [employer] MANUFACTURING SUPERVISOR Marvel Charles [facility] CPT-18187 Level 3 Est. Patient 21:30:19 [employer] MANUFACTURING SUPERVISOR Alina Castaneda MD [facility] CPT-55730 Level 4 Est. Patient 17:04:11 [employer] MANUFACTURING SUPERVISOR Brooksjohn Charles [facility] CPT-65194 Level 3 Est. Patient 15:34:11 [employer] MANUFACTURING SUPERVISOR Marvel Charles [facility] CPT-88699 Level 2 Est. Patient 12:51:58 [employer] MANUFACTURING SUPERVISOR Alina Castaneda MD PhD [facility] CPT-66218 Level 3 Est. Patient 13:20:01 [employer] MANUFACTURING SUPERVISOR Alina Castaneda MD [facility]-86613 Level 3 Est. Patient 09:23:35 CDT Alina Castaneda MD PhD [facility] Procedures Code Procedure Name Date Entry Date Standard Description CPT-TCMM Transitional Care Mgmt-Moderate 10:25:31 CDT CPT-98038 Bladder Scan 14:34:53 CDT CPT-22290 Bladder Scan 14:39:01 [employer]IPE MANUFACTURING SUPERVISOR CPT-TCMM Transitional Care Mgmt-Moderate 10:30:19 [employer]IPE MANUFACTURING SUPERVISOR CPT-81638 Bladder Scan 12:36:44 CDT CPT-88201 Bladder Scan 21:54:06 CDT CPT-G0008 Administration of Influenza Virus Vaccine 13:05:26 CDT CPT-16787 Fluzone Quadrivalent Intramuscular Suspension 0.5 ML 13: 05:26 CDT CPT-35536 Administration single or combination vaccine inc oral 11 :49:51 CDT CPT-08982 Pneumovax 11:49:51 CDT CPT-64300 Ribs unilateral 2V 12:37:22 [employer]IPE MANUFACTURING SUPERVISOR CPT-57394 Chest 2V Frontal and Lat 17:15:26 CDT CPT-33088 Abx/Therapy Injection 18:54:02 CDT CPT-J0696 Rocephin 1000 mg (Ceftriaxone) 16:00:32 CDT CPT-83744 Chest 2V Frontal and Lat 15:26:45 CDT CPT-01403 Chest 2V Frontal and Lat 10:23:27 CDT CPT-71764 Venipuncture Draw Fee 10:11:00 CDT CPT-53771 Administration single or combination vaccine inc oral 11 :56:38 CDT CPT-90265 Influenza split virus > age 3 11:56:38 CDT CPT-34893 Venipuncture Draw Fee 08:49:54 CORN[employer] PIPE MANUFACTURING SUPERVISOR CPT-69374 EKG Trac and Interp 17:54:19 [employer] MANUFACTURING SUPERVISOR
--- OUTSIDE RECORDS SUMMARY | 2018-07-02 15:48 | XMS REPORT | Clinical Summary ---
Author Author Admin, TERELL Organization [facility] Address Unknown Phone Unavailable Allergies, Adverse Reactions, [...] STRP check blood sugars 3x/day GLUCOSE BLOOD 89269054662 Active Marvel MENDOZAP Active ACCU-CHEK ROSA UZMA Use device to check blood sugars BLOOD GLUCOSE MONITORING SUPPL 17373804442 No Longer Active Marvel MENDOZAP Active ACCU-CHEK ROSA INVITR STRP use strips with device to check blood sugars 3 times daily GLUCOSE BLOOD 34375679247 No Longer Active [facility] Active VERAPAMIL HCL ER 180 MG ORAL CR-TABS 1 pill by mouth twice daily, for migraine prevention VERAPAMIL HCL 29733395431 Active Alina Castaneda MD PhD Active CYCLOBENZAPRINE HCL 10 MG TABS 1 tablet by mouth three times daily, scheduled CYCLOBENZAPRINE HCL 22999684126 No Longer Active Alina Castaneda MD PhD Active HUMALOG 100 UNIT/ML SOLN Take 20 units with breakfast, 10u with lunch and suppetr. INSULIN LISPRO (HUMAN) 70666541725 No Longer Active Alina Castaneda MD PhD Active TRUETEST TEST STRP check sugars 4x/day GLUCOSE BLOOD 63903386839 No Longer Active Alina Castaneda MD PhD Active MORPHINE SULFATE 30 MG TABS 1 pill by mouth twice daily, for pain MORPHINE SULFATE 00413667582 Active Alina Castaneda MD PhD Active ACYCLOVIR 400 MG ORAL TABS 1 pill three times daily x 5 days, for cold sore outbreak ACYCLOVIR 27754941342 No Longer Active Alina Castaneda MD PhD Active PENICILLIN V POTASSIUM 500 MG TABS 1 pill by mouth three times daily PENICILLIN V POTASSIUM 17624352768 No Longer Active Alina Castaneda MD PhD Active LATUDA 80 MG TABS 1 tab by mouth every evening LURASIDONE HCL 84617200005 Active Alina Castaneda MD PhD Active UROXATRAL 10 MG [id number]-[id number] Take 1 tablet by mouth daily ALFUZOSIN HCL 56304477535 No Longer Active Alina Castaneda MD PhD Active THIOTHIXENE 5 MG CAPS by mouth twice a day THIOTHIXENE 43134181566 No Longer Active Alina Castaneda MD PhD Active ZYPREXA 7.5 MG TABS 1 at HS OLANZAPINE 49801396921 No Longer Active Alina Castaneda MD PhD Active LEVEMIR 100 UNIT/ML SOLN Take 70 u at 7-8pm INSULIN DETEMIR 50066753942 Active Maljohn Ziglari BUSINESS REPORTING DEVELOPER Active BD INSULIN SYRINGE 28G X 1/2" 1 ML MISC 1 four times per day INSULIN SYRINGE-NEEDLE U-100 83237739892 Active Marvel Mackenzieglari BUSINESS REPORTING DEVELOPER Active TOLTERODINE TARTRATE 2 MG TABS 1 pill twice daily, for bladder TOLTERODINE TARTRATE 48404059477 Active Alina Castaneda MD PhD Active DETROL LA 4 MG [id number]-OSC Take 1 tablet by mouth daily TOLTERODINE TARTRATE 65291460000 No Longer Active Alina Castaneda MD PhD Active HYDROCODONE-ACETAMINOPHEN 5-325 MG TABS 2 tabs by mouth three times daily as needed for pain HYDROCODONE-ACETAMINOPHEN 57093928685 Active Alina Castaneda MD PhD Active TERESE CONTOUR TEST STRP monitor blood sugars 3x/day GLUCOSE BLOOD 73416929204 No Longer Active Alina Castaneda MD PhD Active EQL TRUETEST TEST STRP Test blood sugar TID GLUCOSE BLOOD 55800425711 No Longer Active Alina Castaneda MD PhD Active FLUTICASONE PROPIONATE 50 MCG/ACT SUSP 2 sprays each nostril qDay x 30 days FLUTICASONE PROPIONATE 12575418387 No Longer Active Alina Castaneda MD PhD Active IBUPROFEN 200 MG TABS 1 Q 6 hr. PRN IBUPROFEN 57505969395 No Longer Active Alina Castaneda MD PhD Active NIACIN ER 500 MG CR-TABS 4 qHS (for triglycerides) NIACIN 56025586767 No Longer Active Alina Castaneda MD PhD Active ALFUZOSIN HCL ER 10 MG [id number]-[id number] 1 tablet daily ALFUZOSIN HCL 12883068817 Active Vanessa Hickey MD Active CLONAZEPAM 1 MG TABS 1 pill by mouth three times daily CLONAZEPAM 59156523897 Active Alina Castaneda MD PhD Active LOVAZA 1 GM CAPS 4 daily (for triglycerides) [id number] ETHYL ESTERS 98872288192 Active Alina Castaneda MD PhD Active SAPHRIS 5 MG SUBL by mouth twice a day ASENAPINE MALEATE 49697084325 No Longer Active Maljohn Mackenzieglari BUSINESS REPORTING DEVELOPER Active ACETAMINOPHEN 500 MG TABS 2 Q 6 hr. PRN ACETAMINOPHEN 08599457061 No Longer Active Maliheh Ziglari BUSINESS REPORTING DEVELOPER Active ORPHENADRINE CITRATE ER 100 MG [id number] 1 every 12 hr. as needed ORPHENADRINE CITRATE 71902532753 No Longer Active Alina Castaneda MD PhD Active NIACIN CR 500 MG CR-TABS 2 qHS NIACIN 85664398254 No Longer Active Alina Castaneda MD PhD Active AMOXICILLIN 500 MG CAPS 2 po BID x 10 days AMOXICILLIN 74205386428 No Longer Active Alina Castaneda MD PhD Active HYDROCODONE-ACETAMINOPHEN 7.5-325 MG TABS 1 four times a day as needed for pain HYDROCODONE-ACETAMINOPHEN 33522518940 No Longer Active Alina Castaneda MD PhD Active METFORMIN HCL ER 500 MG [id number]-RZE Take three tablets by mouth everyday METFORMIN HCL 14413471311 Active Alina Castaneda MD PhD Active DOXEPIN HCL 10 MG CAPS Take 1 tablet by mouth daily DOXEPIN HCL 48516429988 No Longer Active Salina Han [facility] Active NAVANE 10 MG CAPS 1/2 tablet twice a day THIOTHIXENE No Longer Active Salina Han [facility] Active CYCLOBENZAPRINE HCL 10 MG TABS 1/2 tablet by mouth every 8 hours as needed for muscle spasms CYCLOBENZAPRINE HCL 95039248804 No Longer Active Alina Castaneda MD PhD Active BACTROBAN 2 % CREAM apply to ear and nose twice daily MUPIROCIN CALCIUM 56385890264 No Longer Active Alina Castaneda MD PhD Active HYDROCODONE-ACETAMINOPHEN 5-325 MG TABS take one tablet by mouth every four hours as needed for pain HYDROCODONE-ACETAMINOPHEN 14746481408 No Longer Active Alina Castaneda MD PhD Active ZOLPIDEM TARTRATE 10 MG TABS take at bedtime ZOLPIDEM TARTRATE 05886963881 Active Alina Castaneda MD PhD Active ZYPREXA 5 MG TABS take one tablet by mouth every evening OLANZAPINE 95784137559 No Longer Active Alina Castaneda MD PhD Active ALBUTEROL SULFATE 0.083 % NEBU SOLN one vial per nebulizer TID and PRN cough/ soa ALBUTEROL SULFATE 52150354504 No Longer Active Alina Castaneda MD PhD Active GUAIFENESIN 600 MG [id number]-EMA 1 tablet by mouth twice daily if needed for cough GUAIFENESIN 22600674175 No Longer Active Marvel MARROQUIN Active AZITHROMYCIN 500 MG SOLR 1 po q day AZITHROMYCIN 24654778324 No Longer Active Alina Castaneda MD PhD Active METOPROLOL SUCCINATE 100 MG OA61Z-HKL 1 by mouth daily for blood pressure METOPROLOL SUCCINATE 16227297308 Active Alina Castaneda MD PhD Active PROMETHAZINE-CODEINE 6.25-10 MG/5ML SYRP 1 tsp po q 6 hours prn cough PROMETHAZINE-CODEINE 67233252481 No Longer Active Alina Castaneda MD PhD Active CEFDINIR 300 MG CAPS by mouth twice a day CEFDINIR 30352120751 No Longer Active Alina Castaneda MD PhD Active METFORMIN HCL 500 MG DH57B-GBA Take 3 tablets by mouth everyday METFORMIN HCL 17483048522 No Longer Active Alina Castaneda MD PhD Active LEVEMIR 100 UNIT/ML SOLN 90 units SQ qHS INSULIN DETEMIR 24945489406 No Longer Active Marvel MARROQUIN Active TOPROL XL 100 MG TH67W-IPD 1 @ HS METOPROLOL SUCCINATE 62676368124 No Longer Active Marvel MARROQUIN Active ALLOPURINOL 300 MG TABS Take one by mouth daily ALLOPURINOL 20904924628 Active Alina Castaneda MD PhD Active ZYPREXA 10 MG TABS Take one by mouth daily OLANZAPINE 40129723522 No Longer Active Alina Castaneda MD PhD Active NOVOLOG 100 UNIT/ML SOLN 40 units with every meal INSULIN ASPART 70280138756 No Longer Active Alina Castaneda MD PhD Active VERAPAMIL HCL CR 120 MG TAB CR 1 qPM VERAPAMIL HCL 92337567957 No Longer Active Salina Han [facility] Active ZYPREXA 15 MG TABS Take 1 tablet by mouth daily OLANZAPINE 61325391875 No Longer Active Marvel MARROQUIN Active LISINOPRIL 20 MG TABS 1 BID LISINOPRIL 44515707831 Active Alina Castaneda MD PhD Active ALBUTEROL SULFATE (2.5 MG/3ML) 0.083% NEBU 1 neb tid and prn cough ALBUTEROL SULFATE 46836256396 No Longer Active Alina Castaneda MD PhD Active FLUVOXAMINE MALEATE 100 MG TABS Take one (1) tablet by mouth am, 05/25 at noon, 1 pm FLUVOXAMINE MALEATE 03566541644 Active Alina Castaneda MD PhD Active TRAVATAN Z 0.004 % SOLN 1 gtt each eye daily TRAVOPROST 20659625534 Active CRYSTAL Suarez Active LANTUS 100 UNIT/ML SOLN 60 units sq q hs INSULIN GLARGINE 03764933063 No Longer Active CRYSTAL Suarez Active ALBUTEROL SULFATE (2.5 MG/3ML) 0.083% NEBU 1 neb tid and prn cough ALBUTEROL SULFATE (2.5 MG/3ML) 0.083% NEBU 902024 ALBUTEROL SULFATE Inactive ZYPREXA 15 MG TABS Take 1 tablet by mouth daily ZYPREXA 15 MG TABS 682298 OLANZAPINE Inactive VERAPAMIL HCL CR 120 MG TAB CR 1 qPM VERAPAMIL HCL CR 120 MG TAB CR VERAPAMIL HCL Inactive ZYPREXA 10 MG TABS Take one by mouth daily ZYPREXA 10 MG TABS 739738 OLANZAPINE Inactive TOPROL XL 100 MG [id number] 1 @ HS TOPROL XL 100 MG [id number] METOPROLOL SUCCINATE Inactive LEVEMIR 100 UNIT/ML SOLN 90 units SQ qHS LEVEMIR 100 UNIT/ML SOLN INSULIN DETEMIR Inactive PROMETHAZINE-CODEINE 6.25-10 MG/5ML SYRP 1 tsp po q 6 hours prn cough PROMETHAZINE-CODEINE 6.25-10 MG/5ML SYRP 341785 PROMETHAZINE- CODEINE Inactive GUAIFENESIN 600 MG [id number]-ZEL 1 tablet by mouth twice daily if needed for cough GUAIFENESIN 600 MG [id number]-JQU GUAIFENESIN Inactive ALBUTEROL SULFATE 0.083 % NEBU SOLN one vial per nebulizer TID and PRN cough/ soa ALBUTEROL SULFATE 0.083 % [facility] 095680 ALBUTEROL SULFATE Inactive ZYPREXA 5 MG TABS take one tablet by mouth every evening ZYPREXA 5 MG TABS 424295 OLANZAPINE Inactive HYDROCODONE-ACETAMINOPHEN 5-325 MG TABS take one tablet by mouth every four hours as needed for pain HYDROCODONE-ACETAMINOPHEN 5-325 MG TABS 481766 HYDROCODONE-ACETAMINOPHEN Inactive BACTROBAN 2 % CREAM apply to ear and nose twice daily BACTROBAN 2 % CREAM 036143 MUPIROCIN CALCIUM Inactive CYCLOBENZAPRINE HCL 10 MG TABS 1/2 tablet by mouth every 8 hours as needed for muscle spasms CYCLOBENZAPRINE HCL 10 MG TABS 592573 CYCLOBENZAPRINE HCL Inactive NAVANE 10 MG CAPS 1/2 tablet twice a day NAVANE 10 MG CAPS THIOTHIXENE Inactive DOXEPIN HCL 10 MG CAPS Take 1 tablet by mouth daily DOXEPIN HCL 10 MG CAPS 4681739 DOXEPIN HCL Inactive HYDROCODONE-ACETAMINOPHEN 7.5-325 MG TABS 1 four times a day as needed for pain HYDROCODONE-ACETAMINOPHEN 7.5-325 MG TABS 070392 HYDROCODONE-ACETAMINOPHEN Inactive NIACIN CR 500 MG CR-TABS 2 qHS NIACIN CR 500 MG CR- TABS NIACIN Inactive ORPHENADRINE CITRATE ER 100 MG [id number] 1 every 12 hr. as needed ORPHENADRINE CITRATE ER 100 MG [id number]-WLT ORPHENADRINE CITRATE Inactive ACETAMINOPHEN 500 MG TABS 2 Q 6 hr. PRN ACETAMINOPHEN 500 MG TABS 192243 ACETAMINOPHEN Inactive SAPHRIS 5 MG SUBL by mouth twice a day SAPHRIS 5 MG SUBL ASENAPINE MALEATE Inactive NIACIN ER 500 MG CR-TABS 4 qHS (for triglycerides) NIACIN ER 500 MG CR-TABS NIACIN Inactive IBUPROFEN 200 MG TABS 1 Q 6 hr. PRN IBUPROFEN 200 MG TABS 811826 IBUPROFEN Inactive FLUTICASONE PROPIONATE 50 MCG/ACT SUSP 2 sprays each nostril qDay x 30 days FLUTICASONE PROPIONATE 50 MCG/ACT SUSP 031558 FLUTICASONE PROPIONATE Inactive EQL TRUETEST TEST STRP Test blood sugar TID EQL TRUETEST TEST STRP GLUCOSE BLOOD Inactive TERESE CONTOUR TEST STRP monitor blood sugars 3x/day TERESE CONTOUR TEST STRP GLUCOSE BLOOD Inactive DETROL LA 4 MG [id number] Take 1 tablet by mouth daily DETROL LA 4 MG [id number] TOLTERODINE TARTRATE Inactive ZYPREXA 7.5 MG TABS 1 at HS ZYPREXA 7.5 MG TABS 219962 OLANZAPINE Inactive THIOTHIXENE 5 MG CAPS by mouth twice a day THIOTHIXENE 5 MG CAPS 435487 THIOTHIXENE Inactive UROXATRAL 10 MG BY28W-CZS Take 1 tablet by mouth daily UROXATRAL 10 MG DA83N-ROV ALFUZOSIN HCL Inactive ACYCLOVIR 400 MG ORAL TABS 1 pill three times daily x 5 days, for cold sore outbreak ACYCLOVIR 400 MG ORAL TABS 071406 ACYCLOVIR Inactive TRUETEST TEST STRP check sugars 4x/day TRUETEST TEST STRP GLUCOSE BLOOD Inactive HUMALOG 100 UNIT/ML SOLN Take 20 units with breakfast, 10u with lunch and suppetr. HUMALOG 100 UNIT/ML SOLN INSULIN LISPRO ( HUMAN) Inactive CYCLOBENZAPRINE HCL 10 MG TABS 1 tablet by mouth three times daily, scheduled CYCLOBENZAPRINE HCL 10 MG TABS 547461 CYCLOBENZAPRINE HCL Inactive ACCU-CHEK ROSA INVITR STRP use strips with device to check blood sugars 3 times daily ACCU-CHEK ROSA INVITR STRP GLUCOSE BLOOD Inactive ACCU-CHEK ROSA UZMA Use device to check blood sugars ACCU-CHEK ROSA UZMA BLOOD GLUCOSE MONITORING SUPPL Inactive CEFDINIR 300 MG CAPS by mouth twice a day CEFDINIR 300 MG CAPS 601369 CEFDINIR Inactive AZITHROMYCIN 500 MG SOLR 1 po q day AZITHROMYCIN 500 MG SOLR 123852 AZITHROMYCIN Inactive AMOXICILLIN 500 MG CAPS 2 po BID x 10 days AMOXICILLIN 500 MG CAPS 455882 AMOXICILLIN Inactive PENICILLIN V POTASSIUM 500 MG TABS 1 pill by mouth three times daily PENICILLIN V POTASSIUM 500 MG TABS 138532 PENICILLIN V POTASSIUM Inactive Immunizations Vaccine Administration [...] Fluvirin, Fluarix, Agriflu(>=18 yo)) Fluzone (>3 yrs.) [[id number]] Influenza, seasonal, injectable pneumococcal immunization administered Pneumovax [...] HGBA1C - Chemistry sodium, serum 130 mmol/L 413-728 1902/06/09 potassium, serum 4.0 mmol/L 3.5-5.2 chloride, serum 92 mmol/L 98-107 carbon dioxide, venous blood 22.1 mmol/L 21.0-32.0 blood glucose 60 mg/dL 65-110 calcium, serum 9.5 mg/dL 8.5-10.1 urea nitrogen, blood 14 mg/dL 7-18 creatinine, serum 1.30 mg/dL 0.60-1.30 hemoglobin A1C, blood, as % of total hemoglobin 6.0 % 4.3-6.0 sodium, serum 131 mmol/L 773-973 1673/12/30 potassium, serum 5.0 mmol/L 3.5-5.2 chloride, serum [...] 6.0 mg/dL 2.6-7.2 sodium, serum 130 mmol/L 132-885 0216/05/01 potassium, serum 5.2 mmol/L 3.5-5.2 chloride, serum [...] 0.40 mg/dL 0.00-1.00 cholesterol, serum 151 mg/dL 986-482 5816/05/01 triglyceride, serum, fasting 356 mg/dL 30-200 HDL [...] Panel - Chemistry sodium, serum 127 mmol/L 779-813 7543/10/27 potassium, serum 4.1 mmol/L 3.5-5.2 chloride, serum [...] mg/dL Encounters Code Encounter Date Provider Facility CPT-69093 Level 2 Est. Patient 12:52:14 CDT Alina Castaneda MD [facility]-32156 Level 3 Est. Patient 11:51:18 HAT AND CAP OPENER Alina Castaneda MD [facility] CPT-11183 Level 3 Est. Patient 10:09:22 HAT AND CAP OPENER Alina Castaneda MD [facility]-88607 Level 3 Est. Patient 14:36:26 HAT AND CAP OPENER Marvel Charles [facility] CPT-85374 Level 3 Est. Patient 13:34:47 HAT AND CAP OPENER Alina Castaneda MD [facility] CPT-73052 Level 3 Est. Patient 19:52:08 HAT AND CAP OPENER Alina Castaneda MD [facility]-01338 Level 3 Est. Patient 10:01:51 HAT AND CAP OPENER Marvel Charles [facility] CPT-25457 Level 3 Est. Patient 21:54:06 CDT Vanessa Hickey MD [facility]-50293 Level 3 Est. Patient 08:54:46 CDT Alina Castaneda MD [facility]88884 Level 3 Est. Patient 09:32:11 [facility]-96887 Level 3 Est. Patient 12:02:49 CDT Alina Castaneda MD [facility]-55437 Level 3 Est. Patient 19:17:33 CDT Alina Castaneda MD [facility]69339 Level 3 Est. Patient 13:19:10 CDT Marvel Charles [facility]-84829 Level 3 Est. Patient 08:20:05 CDT Alina Castaneda MD [facility]63402 Level 3 Est. Patient 15:17:18 CDT Alina Castaneda MD [facility]97767 Level 3 Est. Patient 14:25:36 HAT AND CAP OPENER Marvel Charles [facility]-89328 Level 3 Est. Patient 10:09:15 HAT AND CAP OPENER Marvel Charles [facility]-33383 Level 3 Est. Patient 21:28:43 CDT Alina Castaneda MD [facility]-22226 Level 3 Est. Patient 15:20:11 [facility] 4 Est. Patient 19:08:12 CDT Alina Castaneda MD [facility]53890 Level 3 Est. Patient 15:06:39 CDT Marvel Araceli [facility]-01923 Level 4 Est. Patient 17:48:15 CDT Alina Castaneda MD [facility]79616 Level 3 Est. Patient 14:53:49 CDT Alina Castaneda MD [facility]42409 Level 3 Est. Patient 09:35:16 CDT Alina Castaneda MD [facility]-78278 Level 3 Est. Patient 12:23:22 CDT Alina Castaneda MD [facility]38839 Level 3 Est. Patient 16:19:15 CDT Alina Castaneda MD [facility]39606 Level 3 Est. Patient 21:39:56 HAT AND CAP OPENER Alina Castaneda MD [facility]-04904 Level 4 Est. Patient 14:12:56 HAT AND CAP OPENER Alina Castaneda MD [facility]51205 Level 2 Est. Patient 15:34:57 HAT AND CAP OPENER Alina Castaneda MD [facility]-52408 Level 3 Est. Patient 12:17:04 HAT AND CAP OPENER Alina Castaneda MD [facility]-77199 Level 3 Est. Patient 09:18:18 HAT AND CAP OPENER Marvel Charles [facility]-81836 Level 2 Est. Patient 21:50:24 CDT Alina Castaneda MD [facility]-62338 Level 3 Est. Patient 09:17:28 CDT Marvel Charles [facility]-63455 Level 4 Est. Patient 18:54:02 CDT Alina Castaneda MD [facility]-92430 Level 3 Est. Patient 10:47:10 CDT Alina Castaneda MD [facility]48372 Level 3 Est. Patient 09:22:20 CDT Marvel Charles [facility]55769 Level 3 Est. Patient 16:39:43 CDT Marvel Charles [facility]-78101 Level 3 Est. Patient 16:05:16 CDT Alina Castaneda MD [facility] CPT-60672 Level 3 Est. Patient 00:29:15 CDT Alina Castaneda MD [facility] CPT-49060 Level 3 Est. Patient 10:49:22 HAT AND CAP OPENER Brooksnivia Thurstonestela [facility] CPT-92426 Level 3 Est. Patient 21:30:19 HAT AND CAP OPENER Alina Castaneda MD [facility] CPT-95930 Level 4 Est. Patient 17:04:11 HAT AND CAP OPENER [facility] CPT-53425 Level 3 Est. Patient 15:34:11 HAT AND CAP OPENER [facility] CPT-83244 Level 2 Est. Patient 12:51:58 HAT AND CAP OPENER Alina Castaneda MD [facility] CPT-34019 Level 3 Est. Patient 13:20:01 HAT AND CAP OPENER Alina Castaneda MD [facility] CPT-08956 Level 3 Est. Patient 09:23:35 CDT Alina Castaneda MD [facility] Procedures Code Procedure Name Date Entry Date Standard Description CPT-67440 Bladder Scan 21:54:06 CDT CPT-G0008 Administration of Influenza Virus Vaccine 13:05:26 CDT CPT-60109 Fluzone Quadrivalent Intramuscular Suspension 0.5 ML 13: 05:26 CDT CPT-28459 Administration single or combination vaccine inc oral 11 :49:51 CDT CPT-04351 Pneumovax 11:49:51 CDT CPT-32852 Ribs unilateral 2V 12:37:22 HAT AND CAP OPENER CPT-42604 Chest 2V Frontal and Lat 17:15:26 CDT CPT-93042 Abx/Therapy Injection 18:54:02 CDT CPT-J0696 Rocephin 1000 mg (Ceftriaxone) 16:00:32 CDT CPT-29379 Chest 2V Frontal and Lat 15:26:45 CDT CPT-76605 Chest 2V Frontal and Lat 10:23:27 CDT CPT-96960 Venipuncture Draw Fee 10:11:00 CDT CPT-12468 Administration single or combination vaccine inc oral 11 :56:38 CDT CPT-02530 Influenza split virus > age 3 11:56:38 CDT CPT-31646 Venipuncture Draw Fee 08:49:54 HAT AND CAP OPENER CPT-25413 EKG Trac and Interp 17:54:19 HAT AND CAP OPENER
--- OUTSIDE RECORDS SUMMARY | 2018-07-02 15:50 | XMS REPORT | Clinical Summary ---
Author Author Admin, TERELL Organization [facility] [employer] Address Unknown Phone Unavailable Allergies, Adverse Reactions, [...] complication Chest pain, atypical 786.59 Resolved Alina Castandea MD PhD Other chest pain Chest pain, atypical 786.59 Resolved Alina Castaneda MD PhD Other chest pain Urinary Retention 788.20 Active Vanessa Hickey MD Retention of urine, unspecified Benign paroxysmal positional vertigo 386.11 Active Mima Erazo TRUST ADMINISTRATOR Benign paroxysmal positional vertigo Vertigo, benign paroxysmal position 386.11 Inactive Mima Erazo TRUST ADMINISTRATOR Benign paroxysmal positional vertigo High-risk sexual behavior V69.2 Active Alina Castaneda MD PhD High-risk sexual behavior Erectile dysfunction 302.72 Active Alina Castaneda MD PhD Psychosexual dysfunction with inhibited sexual excitement Constipation 564.00 Active Alina Castaneda MD PhD Constipation, unspecified Skin lesion 709.9 Active Alina Castaneda MD PhD Unspecified disorder of skin and subcutaneous tissue Malaise and fatigue 780.79 Active Cherelle Speaks TRUST ADMINISTRATOR Other malaise and fatigue Diarrhea 787.91 Active Cherelle Speaks TRUST ADMINISTRATOR Diarrhea PHARYNGITIS 462 Active Cherelle Speaks TRUST ADMINISTRATOR Acute pharyngitis Colitis 558.9 Active Mima Erazo TRUST ADMINISTRATOR Other and unspecified noninfectious gastroenteritis and [...] Patient Instruction EFFEXOR XR 37.5 MG ORAL [id number] Take one by mouth daily VENLAFAXINE HCL 60392663242 Active Mima Vadimum ALBAN Active TRAVATAN Z 0.004 % OPHTH SOLN 1 drop each eye daily TRAVOPROST 45517120139 Active Mima Yokum TRUST ADMINISTRATOR Active FLUVOXAMINE MALEATE 50 MG ORAL TABS 1 tab by mouth daily FLUVOXAMINE MALEATE 29450456652 No Longer Active Mima Vadimum ALBAN Active MORPHINE SULFATE ER 30 MG ORAL CR-TABS Take one capsule BID MORPHINE SULFATE 01285641939 Active Mima Yokum TRUST ADMINISTRATOR Active TRUEPLUS LANCETS 30G MISC 3x a day LANCETS 08987718539 Active Marvel Charles DRYING SUPERVISOR Active TRUE METRIX METER W/DEVICE KIT Check blood sugars 3x/day BLOOD GLUCOSE MONITORING SUPPL 87437499044 Active Marvel Mackenzieglari DRYING SUPERVISOR Active TRUE METRIX BLOOD GLUCOSE TEST INVITR STRP Check blood sugars 3x/day. GLUCOSE BLOOD 52035896071 Active Marvel Mackenzieglari DRYING SUPERVISOR Active VITAMIN D 2000 UNIT ORAL CAPS Take one by mouth daily CHOLECALCIFEROL 10097389774 Active Mima Yokum TRUST ADMINISTRATOR Active LATUDA 60 MG ORAL TABS Take one by mouth daily LURASIDONE HCL 82982673748 No Longer Active Mima Yokum TRUST ADMINISTRATOR Active HUMALOG KWIKPEN 100 UNIT/ML SC SOPN sliding scale if needed INSULIN LISPRO (HUMAN) 37408476190 Active Mima Yokum TRUST ADMINISTRATOR Active TRAZODONE HCL 100 MG TABS 1 every night to prevent headaches TRAZODONE HCL 07114996405 Active Gabrielle Madl QUANTITATIVE RESEARCH ANALYST Active LATUDA 60 MG ORAL TABS 1 tab daily LURASIDONE HCL 39137170836 Active Gabrielle Madl QUANTITATIVE RESEARCH ANALYST Active CLONAZEPAM 1 MG TABS 1 pill by mouth three times daily CLONAZEPAM 49861038302 Active Gabrielle Madl QUANTITATIVE RESEARCH ANALYST Active [facility] MILK OF MAGNESIA 400 MG/5ML ORAL SUSP 30ml by mouth bid prn MAGNESIUM HYDROXIDE 93784733078 Active Mason Loredo MD Active TYLENOL 8 HOUR 650 MG ORAL CR-TABS 1 tab QID prn ACETAMINOPHEN 73930644648 Active Mason Loredo MD Active MYLANTA GAS RELIEF MAXIMUM STR 125 MG ORAL CAPS 30cc every 4 hours prn 12/01 SIMETHICONE 54033035475 Active Mason Loredo MD Active IMODIUM A-D 2 MG ORAL TABS 1 tab QID as needed LOPERAMIDE HCL 88019098778 Active Mason Loredo MD Active TRAVATAN Z 0.004 % SOLN 1 gtt each eye daily TRAVOPROST 11594895050 No Longer Active Mason Loredo MD Active LISINOPRIL 20 MG TABS 1 BID LISINOPRIL 12000479920 No Longer Active Mason Loredo MD Active LEVEMIR FLEXTOUCH 100 UNIT/ML SC SOPN 60 units SQ each evening, for diabetes INSULIN DETEMIR 92625404397 Active Mima Erazo APRN Active ZOLPIDEM TARTRATE 10 MG TABS take at bedtime ZOLPIDEM TARTRATE 78495674912 No Longer Active Mason Loredo MD Active HYDROCODONE-ACETAMINOPHEN 5-325 MG TABS 2 tabs by mouth three times daily for pain HYDROCODONE-ACETAMINOPHEN 76077468083 No Longer Active Mason Loredo MD Active ZOFRAN 4 MG TABS 1 po q4hr PRN Nausea ONDANSETRON HCL 27854904476 No Longer Active Mason Loredo MD Active LOMOTIL 2.5-0.025 MG ORAL TABS take 1-2 tabs PO after each stool, no more than 8 in 24 hours DIPHENOXYLATE-ATROPINE 35488590887 No Longer Active Mason Loredo MD Active COLACE 100 MG CAPS 1 pill by mouth twice daily, for constipation DOCUSATE SODIUM 57723068019 No Longer Active Mima Erazo APRN Active FLONASE ALLERGY RELIEF 50 MCG/ACT NASAL SUSP One spray each nostril BID x 1 week then daily FLUTICASONE PROPIONATE 16401351457 Active Mima Erazo APRN Active BD PEN NEEDLE MINI U/F 31G X 5 MM MISC 4 a day INSULIN PEN NEEDLE 02953940166 Active Marvel MARROQUIN Active AMITIZA 24 MCG ORAL CAPS Take one capsule BID for constipation LUBIPROSTONE 77131965148 Active Mima Erazo APRN Active TRUEPLUS LANCETS 30G MISC 3 a day LANCETS 60201624709 Active Marvel MARROQUIN Active TOLTERODINE TARTRATE 2 MG TABS 1 pill twice daily, for bladder TOLTERODINE TARTRATE 02566939041 No Longer Active Vanessa Hickey MD Active AMITIZA 24 MCG ORAL CAPS Take one capsule BID for constipation. LUBIPROSTONE 61207189389 No Longer Active Vanessa Hickey MD Active FLUVOXAMINE MALEATE 100 MG ORAL TABS take one tab every AM et HS, and take 1/ 2 tab at noon FLUVOXAMINE MALEATE 95158451844 Active Grace Azam RMA Active METOPROLOL SUCCINATE 100 MG [id number] 1 by mouth daily for blood pressure METOPROLOL SUCCINATE 57767521048 No Longer Active Grace Azam RMA Active METFORMIN HCL ER 500 MG [id number]-PIB Take three tablets by mouth everyday METFORMIN HCL 23041991421 No Longer Active Grace Azam RMA Active LOVAZA 1 GM CAPS 4 daily (for triglycerides) OMEGA-3- ACID ETHYL ESTERS 94071693053 No Longer Active Grace Azam RMA Active TRAZODONE HCL 100 MG ORAL TABS 1 tab by mouth for sleep TRAZODONE HCL 21116862693 No Longer Active Grace Azam RMA Active NOVOFINE 32G X 6 MM MISC use one four times per day INSULIN PEN NEEDLE 69740330793 No Longer Active Grace Azam RMA Active BACTROBAN 2 % CREAM Apply to affected area BID for up to 10 days MUPIROCIN CALCIUM 64481337749 No Longer Active Grace Azam RMA Active KEFLEX 500 MG CAP 1 po BID x 7 days CEPHALEXIN 65589765021 No Longer Active Cherelle Avila APRN Active FLUVOXAMINE MALEATE 100 MG TABS Take one (1) tablet by mouth am, 1/2 at noon FLUVOXAMINE MALEATE 81997482160 No Longer Active Mimacecily Erazo TRUST ADMINISTRATOR Active CORICIDIN HBP CONGESTION/COUGH 10-200 MG ORAL CAPS Take as directed on box as needed for cold/flu symptoms DEXTROMETHORPHAN-GUAIFENESIN 31906486648 Active Cherelle Speaks TRUST ADMINISTRATOR Active OMEGA-3 300 MG ORAL CAPS 4 caps by mouth daily OMEGA-3 FATTY ACIDS 93757469009 Active Mima Yokum TRUST ADMINISTRATOR Active FLUVOXAMINE MALEATE 100 MG ORAL TABS Take 1/2 tab at noon FLUVOXAMINE MALEATE 42684781906 No Longer Active Cherelle Avila APRN Active [facility] LUBRICANT EYE DROPS 0.4-0.3 % OPHTH SOLN POLYETHYL GLYCOL-PROPYL GLYCOL 90921719389 Active Mima Erazo APRN Active MIRALAX POWD 17g by mouth daily, for constipation POLYETHYLENE GLYCOL 3350 46911347509 Active Mima Erazo APRN Active TRUETEST TEST STRP check blood sugars 3x/day GLUCOSE BLOOD 41155325031 Active Maliheh Ziglari DRYING SUPERVISOR Active ACCU-CHEK ROSA UZMA Use device to check blood sugars BLOOD GLUCOSE MONITORING SUPPL 67077738771 No Longer Active Maliheh Ziglari DRYING SUPERVISOR Active ACCU-CHEK ROSA INVITR STRP use strips with device to check blood sugars 3 times daily GLUCOSE BLOOD 80755630021 No Longer Active Mallashondaeh Ziglari DRYING SUPERVISOR Active VERAPAMIL HCL ER 180 MG ORAL CR-TABS 1 pill by mouth twice daily, for migraine prevention VERAPAMIL HCL 41268110548 Active Mima Erazo APRN Active CYCLOBENZAPRINE HCL 10 MG TABS 1 tablet by mouth three times daily, scheduled CYCLOBENZAPRINE HCL 40381372421 No Longer Active Alina Castaneda MD PhD Active HUMALOG 100 UNIT/ML SOLN Take 20 units with breakfast, 10u with lunch and suppetr. INSULIN LISPRO (HUMAN) 80584857447 No Longer Active Alina Castaneda MD PhD Active TRUETEST TEST STRP check sugars 4x/day GLUCOSE BLOOD 02139319150 No Longer Active Alina Castaneda MD PhD Active MORPHINE SULFATE 30 MG TABS 1 pill by mouth twice daily, for pain MORPHINE SULFATE 42035839079 No Longer Active Mason Loredo MD Active ACYCLOVIR 400 MG ORAL TABS 1 pill three times daily x 5 days, for cold sore outbreak ACYCLOVIR 27784274189 No Longer Active Alina Castaneda MD PhD Active PENICILLIN V POTASSIUM 500 MG TABS 1 pill by mouth three times daily PENICILLIN V POTASSIUM 52149768538 No Longer Active Alina Castaneda MD PhD Active UROXATRAL 10 MG [id number]-UYV Take 1 tablet by mouth daily ALFUZOSIN HCL 16951692595 No Longer Active Alina Castaneda MD PhD Active THIOTHIXENE 5 MG CAPS by mouth twice a day THIOTHIXENE 93424048590 No Longer Active Alina Castaneda MD PhD Active ZYPREXA 7.5 MG TABS 1 at HS OLANZAPINE 03001819873 No Longer Active Alina Castaneda MD PhD Active BD INSULIN SYRINGE 28G X 1/2" 1 ML MISC 1 four times per day INSULIN SYRINGE-NEEDLE U-100 44178217397 Active Marvel Charles [facility] Active DETROL LA 4 MG [id number] Take 1 tablet by mouth daily TOLTERODINE TARTRATE 34880847031 No Longer Active Alina Castaneda MD PhD Active TERESE CONTOUR TEST STRP monitor blood sugars 3x/day GLUCOSE BLOOD 37938925361 No Longer Active Alina Castaneda MD PhD Active EQL TRUETEST TEST STRP Test blood sugar TID GLUCOSE BLOOD 66944193275 No Longer Active Alina Castaneda MD PhD Active FLUTICASONE PROPIONATE 50 MCG/ACT SUSP 2 sprays each nostril qDay x 30 days FLUTICASONE PROPIONATE 95548182126 No Longer Active Alina Castaneda MD PhD Active IBUPROFEN 200 MG TABS 1 Q 6 hr. PRN IBUPROFEN 68233236698 No Longer Active Alina Castaneda MD PhD Active NIACIN ER 500 MG CR-TABS 4 qHS (for triglycerides) NIACIN 27900211585 No Longer Active Alina Castaneda MD PhD Active ALFUZOSIN HCL ER 10 MG [id number] 1 tablet daily ALFUZOSIN HCL 45168107446 Active Mima Erazo TRUST ADMINISTRATOR Active SAPHRIS 5 MG SUBL by mouth twice a day ASENAPINE MALEATE 44840547086 No Longer Active Marvel Thurstonari DRYING SUPERVISOR Active ACETAMINOPHEN 500 MG TABS 2 Q 6 hr. PRN ACETAMINOPHEN 37935303827 No Longer Active Mallashondaeh Ziglari DRYING SUPERVISOR Active ORPHENADRINE CITRATE ER 100 MG [id number] 1 every 12 hr. as needed ORPHENADRINE CITRATE 99356969601 No Longer Active Alina Castaneda MD PhD Active NIACIN CR 500 MG CR-TABS 2 qHS NIACIN 57989988161 No Longer Active Alina Castaneda MD PhD Active AMOXICILLIN 500 MG CAPS 2 po BID x 10 days AMOXICILLIN 19646268724 No Longer Active Alina Castaneda MD PhD Active HYDROCODONE-ACETAMINOPHEN 7.5-325 MG TABS 1 four times a day as needed for pain HYDROCODONE-ACETAMINOPHEN 36692437416 No Longer Active Alina Castaneda MD PhD Active DOXEPIN HCL 10 MG CAPS Take 1 tablet by mouth daily DOXEPIN HCL 46724074303 No Longer Active Salina Han [facility] Active NAVANE 10 MG CAPS 1/2 tablet twice a day THIOTHIXENE No Longer Active Salina Han [facility] Active CYCLOBENZAPRINE HCL 10 MG TABS 1/2 tablet by mouth every 8 hours as needed for muscle spasms CYCLOBENZAPRINE HCL 22407403883 No Longer Active Alina Castaneda MD PhD Active BACTROBAN 2 % CREAM apply to ear and nose twice daily MUPIROCIN CALCIUM 76782007448 No Longer Active Alina Castaneda MD PhD Active HYDROCODONE-ACETAMINOPHEN 5-325 MG TABS take one tablet by mouth every four hours as needed for pain HYDROCODONE-ACETAMINOPHEN 90726620924 No Longer Active Alina Castaneda MD PhD Active ZYPREXA 5 MG TABS take one tablet by mouth every evening OLANZAPINE 22749825551 No Longer Active Alina Castaneda MD PhD Active ALBUTEROL SULFATE 0.083 % NEBU SOLN one vial per nebulizer TID and PRN cough/ soa ALBUTEROL SULFATE 76032401204 No Longer Active Alina Castaneda MD PhD Active GUAIFENESIN 600 MG [id number] 1 tablet by mouth twice daily if needed for cough GUAIFENESIN 86230239736 No Longer Active Marvel MARROQUIN Active AZITHROMYCIN 500 MG SOLR 1 po q day AZITHROMYCIN 18964296335 No Longer Active Alina Castaneda MD PhD Active PROMETHAZINE-CODEINE 6.25-10 MG/5ML SYRP 1 tsp po q 6 hours prn cough PROMETHAZINE-CODEINE 41567642280 No Longer Active Alina Castaneda MD PhD Active CEFDINIR 300 MG CAPS by mouth twice a day CEFDINIR 12614270473 No Longer Active Alina Castaneda MD PhD Active METFORMIN HCL 500 MG [id number] Take 3 tablets by mouth everyday METFORMIN HCL 25684634361 No Longer Active Alina Castaneda MD PhD Active LEVEMIR 100 UNIT/ML SOLN 90 units SQ qHS INSULIN DETEMIR 83216874337 No Longer Active Marvel MARROQUIN Active TOPROL XL 100 MG RF71R-TVY 1 @ HS METOPROLOL SUCCINATE 52890137978 No Longer Active Marvel MARROQUIN Active ALLOPURINOL 300 MG TABS Take one by mouth daily ALLOPURINOL 26122115216 Active Mima Yokum TRUST ADMINISTRATOR Active ZYPREXA 10 MG TABS Take one by mouth daily OLANZAPINE 26775013468 No Longer Active Alina Castaneda MD PhD Active NOVOLOG 100 UNIT/ML SOLN 40 units with every meal INSULIN ASPART 49486450973 No Longer Active Alina Castaneda MD PhD Active VERAPAMIL HCL CR 120 MG TAB CR 1 qPM VERAPAMIL HCL 79951808706 No Longer Active Salina Han RMA Active ZYPREXA 15 MG TABS Take 1 tablet by mouth daily OLANZAPINE 39698206147 No Longer Active Marvel MARROQUIN Active ALBUTEROL SULFATE (2.5 MG/3ML) 0.083% NEBU 1 neb tid and prn cough ALBUTEROL SULFATE 30866675634 No Longer Active Alina Castaneda MD PhD Active LANTUS 100 UNIT/ML SOLN 60 units sq q hs INSULIN GLARGINE 34562461160 No Longer Active Alina Mendez, A Active ALBUTEROL SULFATE (2.5 MG/3ML) 0.083% NEBU 1 neb tid and prn cough ALBUTEROL SULFATE (2.5 MG/3ML) 0.083% NEBU 982125 ALBUTEROL SULFATE Inactive ZYPREXA 15 MG TABS Take 1 tablet by mouth daily ZYPREXA 15 MG TABS 974031 OLANZAPINE Inactive VERAPAMIL HCL CR 120 MG TAB CR 1 qPM VERAPAMIL HCL CR 120 MG TAB CR VERAPAMIL HCL Inactive ZYPREXA 10 MG TABS Take one by mouth daily ZYPREXA 10 MG TABS 769997 OLANZAPINE Inactive TOPROL XL 100 MG [id number] 1 @ HS TOPROL XL 100 MG [id number]-XNW METOPROLOL SUCCINATE Inactive LEVEMIR 100 UNIT/ML SOLN 90 units SQ qHS LEVEMIR 100 UNIT/ML SOLN INSULIN DETEMIR Inactive PROMETHAZINE-CODEINE 6.25-10 MG/5ML SYRP 1 tsp po q 6 hours prn cough PROMETHAZINE-CODEINE 6.25-10 MG/5ML SYRP 277809 PROMETHAZINE- CODEINE Inactive GUAIFENESIN 600 MG [id number]-[id number] 1 tablet by mouth twice daily if needed for cough GUAIFENESIN 600 MG [id number]-UCL GUAIFENESIN Inactive ALBUTEROL SULFATE 0.083 % NEBU SOLN one vial per nebulizer TID and PRN cough/ soa ALBUTEROL SULFATE 0.083 % NEBU SOLN 037456 ALBUTEROL SULFATE Inactive ZYPREXA 5 MG TABS take one tablet by mouth every evening ZYPREXA 5 MG TABS 750050 OLANZAPINE Inactive HYDROCODONE-ACETAMINOPHEN 5-325 MG TABS take one tablet by mouth every four hours as needed for pain HYDROCODONE-ACETAMINOPHEN 5-325 MG TABS 707608 HYDROCODONE-ACETAMINOPHEN Inactive BACTROBAN 2 % CREAM apply to ear and nose twice daily BACTROBAN 2 % CREAM 044146 MUPIROCIN CALCIUM Inactive CYCLOBENZAPRINE HCL 10 MG TABS 1/2 tablet by mouth every 8 hours as needed for muscle spasms CYCLOBENZAPRINE HCL 10 MG TABS 141486 CYCLOBENZAPRINE HCL Inactive NAVANE 10 MG CAPS 1/2 tablet twice a day NAVANE 10 MG CAPS THIOTHIXENE Inactive DOXEPIN HCL 10 MG CAPS Take 1 tablet by mouth daily DOXEPIN HCL 10 MG CAPS 9481464 DOXEPIN HCL Inactive HYDROCODONE-ACETAMINOPHEN 7.5-325 MG TABS 1 four times a day as needed for pain HYDROCODONE-ACETAMINOPHEN 7.5-325 MG TABS 418046 HYDROCODONE-ACETAMINOPHEN Inactive NIACIN CR 500 MG CR-TABS 2 qHS NIACIN CR 500 MG CR- TABS NIACIN Inactive ORPHENADRINE CITRATE ER 100 MG [id number] 1 every 12 hr. as needed ORPHENADRINE CITRATE ER 100 MG [id number]-KRP ORPHENADRINE CITRATE Inactive ACETAMINOPHEN 500 MG TABS 2 Q 6 hr. PRN ACETAMINOPHEN 500 MG TABS 856195 ACETAMINOPHEN Inactive SAPHRIS 5 MG SUBL by mouth twice a day SAPHRIS 5 MG SUBL ASENAPINE MALEATE Inactive NIACIN ER 500 MG CR-TABS 4 qHS (for triglycerides) NIACIN ER 500 MG CR-TABS NIACIN Inactive IBUPROFEN 200 MG TABS 1 Q 6 hr. PRN IBUPROFEN 200 MG TABS 984660 IBUPROFEN Inactive FLUTICASONE PROPIONATE 50 MCG/ACT SUSP 2 sprays each nostril qDay x 30 days FLUTICASONE PROPIONATE 50 MCG/ACT SUSP 5048260 FLUTICASONE PROPIONATE Inactive EQL TRUETEST TEST STRP Test blood sugar TID EQL TRUETEST TEST STRP GLUCOSE BLOOD Inactive TERESE CONTOUR TEST STRP monitor blood sugars 3x/day TERESE CONTOUR TEST STRP GLUCOSE BLOOD Inactive DETROL LA 4 MG [id number] Take 1 tablet by mouth daily DETROL LA 4 MG [id number]-HGO TOLTERODINE TARTRATE Inactive ZYPREXA 7.5 MG TABS 1 at HS ZYPREXA 7.5 MG TABS 298268 OLANZAPINE Inactive THIOTHIXENE 5 MG CAPS by mouth twice a day THIOTHIXENE 5 MG CAPS 401490 THIOTHIXENE Inactive UROXATRAL 10 MG [id number]-[id number] Take 1 tablet by mouth daily UROXATRAL 10 MG [id number]-BQH ALFUZOSIN HCL Inactive ACYCLOVIR 400 MG ORAL TABS 1 pill three times daily x 5 days, for cold sore outbreak ACYCLOVIR 400 MG ORAL TABS 520052 ACYCLOVIR Inactive TRUETEST TEST STRP check sugars 4x/day TRUETEST TEST STRP GLUCOSE BLOOD Inactive HUMALOG 100 UNIT/ML SOLN Take 20 units with breakfast, 10u with lunch and suppetr. HUMALOG 100 UNIT/ML SOLN INSULIN LISPRO ( HUMAN) Inactive CYCLOBENZAPRINE HCL 10 MG TABS 1 tablet by mouth three times daily, scheduled CYCLOBENZAPRINE HCL 10 MG TABS 998013 CYCLOBENZAPRINE HCL Inactive ACCU-CHEK ROSA INVITR STRP use strips with device to check blood sugars 3 times daily ACCU-CHEK ROSA INVITR STRP GLUCOSE BLOOD Inactive ACCU-CHEK ROSA UZMA Use device to check blood sugars ACCU-CHEK ROSA UZMA BLOOD GLUCOSE MONITORING SUPPL Inactive FLUVOXAMINE MALEATE 100 MG ORAL TABS Take 1/2 tab at noon FLUVOXAMINE MALEATE 100 MG ORAL TABS 011128 FLUVOXAMINE MALEATE Inactive FLUVOXAMINE MALEATE 100 MG TABS Take one (1) tablet by mouth am, / at noon FLUVOXAMINE MALEATE 100 MG TABS 016620 FLUVOXAMINE MALEATE Inactive BACTROBAN 2 % CREAM Apply to affected area BID for up to 10 days BACTROBAN 2 % CREAM 236205 MUPIROCIN CALCIUM Inactive NOVOFINE 32G X 6 MM MISC use one four times per day NOVOFINE 32G X 6 MM MISC INSULIN PEN NEEDLE Inactive TRAZODONE HCL 100 MG ORAL TABS 1 tab by mouth for sleep TRAZODONE HCL 100 MG ORAL TABS 953657 TRAZODONE HCL Inactive LOVAZA 1 GM CAPS 4 daily (for triglycerides) LOVAZA 1 GM CAPS 161838 OIXUX-5-WLHL ETHYL ESTERS Inactive METFORMIN HCL ER 500 MG [id number] Take three tablets by mouth everyday METFORMIN HCL ER 500 MG OS08Q-AVH METFORMIN HCL Inactive METOPROLOL SUCCINATE 100 MG WB03C-QEC 1 by mouth daily for blood pressure METOPROLOL SUCCINATE 100 MG AR44U-SAV METOPROLOL SUCCINATE Inactive AMITIZA 24 MCG ORAL CAPS Take one capsule BID for constipation. AMITIZA 24 MCG ORAL CAPS LUBIPROSTONE Inactive TOLTERODINE TARTRATE 2 MG TABS 1 pill twice daily, for bladder TOLTERODINE TARTRATE 2 MG TABS 465924 TOLTERODINE TARTRATE Inactive COLACE 100 MG CAPS 1 pill by mouth twice daily, for constipation COLACE 100 MG CAPS 3144161 DOCUSATE SODIUM Inactive LOMOTIL 2.5-0.025 MG ORAL TABS take 1-2 tabs PO after each stool, no more than 8 in 24 hours LOMOTIL 2.5-0.025 MG ORAL TABS 4845756 DIPHENOXYLATE-ATROPINE Inactive ZOFRAN 4 MG TABS 1 po q4hr PRN Nausea ZOFRAN 4 MG TABS 828833 ONDANSETRON HCL Inactive HYDROCODONE-ACETAMINOPHEN 5-325 MG TABS 2 tabs by mouth three times daily for pain HYDROCODONE-ACETAMINOPHEN 5-325 MG TABS 219893 HYDROCODONE-ACETAMINOPHEN Inactive ZOLPIDEM TARTRATE 10 MG TABS take at bedtime ZOLPIDEM TARTRATE 10 MG TABS 407019 ZOLPIDEM TARTRATE Inactive LISINOPRIL 20 MG TABS 1 BID LISINOPRIL 20 MG TABS 286875 LISINOPRIL Inactive TRAVATAN Z 0.004 % SOLN 1 gtt each eye daily TRAVATAN Z 0.004 % SOLN TRAVOPROST Inactive LATUDA 60 MG ORAL TABS Take one by mouth daily LATUDA 60 MG ORAL TABS LURASIDONE HCL Inactive FLUVOXAMINE MALEATE 50 MG ORAL TABS 1 tab by mouth daily FLUVOXAMINE MALEATE 50 MG ORAL TABS 947368 FLUVOXAMINE MALEATE Inactive CEFDINIR 300 MG CAPS by mouth twice a day CEFDINIR 300 MG CAPS 088383 CEFDINIR Inactive AZITHROMYCIN 500 MG SOLR 1 po q day AZITHROMYCIN 500 MG SOLR 88506701030 AZITHROMYCIN Inactive AMOXICILLIN 500 MG CAPS 2 po BID x 10 days AMOXICILLIN 500 MG CAPS 444748 AMOXICILLIN Inactive PENICILLIN V POTASSIUM 500 MG TABS 1 pill by mouth three times daily PENICILLIN V POTASSIUM 500 MG TABS 577954 PENICILLIN V POTASSIUM Inactive KEFLEX 500 MG CAP 1 po BID x 7 days KEFLEX 500 MG CAP 611249 CEPHALEXIN Inactive Immunizations Vaccine Administration Date Value [...] Fluvirin, Fluarix, Agriflu(>=18 yo)) Fluzone (>3 yrs.) [[id number]] Influenza, seasonal, injectable pneumococcal immunization administered Pneumovax [...] HGBA1C - Chemistry sodium, serum 140 mmol/L 790-224 9782/11/09 potassium, serum 4.0 mmol/L 3.5-5.2 chloride, serum [...] Acid - Chemistry cholesterol, serum 187 mg/dL 198-495 9256/06/14 triglyceride, serum, fasting 246 mg/dL 30-200 HDL [...] negative Encounters Code Encounter Date Provider Facility CPT-16889 Level 3 Est. Patient 09:12:14 FAMILY PRACTICE NURSE PRACTITIONER Mima Yoliudmila [facility] CPT-69713 Level 3 Est. Patient 16:52:51 CDT Vanessa Hickey MD [facility]-27280 Level 3 Est. Patient 17:40:16 CDT Mima Erazo [facility] CPT-46701 Level 3 Est. Patient 14:34:52 CDT Vanessa Hickey MD [facility]-65423 Level 3 Est. Patient 16:27:51 CDT Mima Erazo [facility] CPT-24414 Level 3 Est. Patient 14:39:00 FAMILY PRACTICE NURSE PRACTITIONER Vanessa Hickey MD [facility]-80861 Level 2 Est. Patient 18:43:34 CDT Mima Erazo [facility] CPT-58937 Level 3 Est. Patient 16:22:09 CDT Cherelle Avila [facility] CPT-34684 Level 4 Est. Patient 17:55:14 CDT Mima Erazo [facility] CPT-01542 Level 2 Est. Patient 17:13:21 CDT Alina Castaneda MD [facility] CPT-83913 Level 3 Est. Patient 14:46:15 CDT Vanessa Hickey MD [facility]-52691 Level 3 Est. Patient 09:34:56 CDT Alina Castaneda MD [facility]-24067 Level 3 Est. Patient 21:40:19 CDT Mima Jeffliudmila [facility] CPT-50444 Level 3 Est. Patient 09:26:40 CDT Marvel Charles [facility] CPT-58420 Level 3 Est. Patient 12:36:43 CDT Vanessa Hickey MD [facility]-52077 Level 3 Est. Patient 12:57:49 CDT Vanessa Hickey MD [facility]-17743 Level 3 Est. Patient 00:28:25 CDT Alina Castaneda MD [facility]12116 Level 2 Est. Patient 12:52:14 CDT Alina Castaneda MD [facility]14581 Level 3 Est. Patient 11:51:18 FAMILY PRACTICE NURSE PRACTITIONER Alina Castaneda MD [facility]-67100 Level 3 Est. Patient 10:09:22 FAMILY PRACTICE NURSE PRACTITIONER Alina Castaneda MD [facility]39745 Level 3 Est. Patient 14:36:26 FAMILY PRACTICE NURSE PRACTITIONER Marvel Charles [facility]31460 Level 3 Est. Patient 13:34:47 FAMILY PRACTICE NURSE PRACTITIONER Alina Castaneda MD [facility]71846 Level 3 Est. Patient 19:52:08 FAMILY PRACTICE NURSE PRACTITIONER Alina Castaneda MD [facility]14948 Level 3 Est. Patient 10:01:51 FAMILY PRACTICE NURSE PRACTITIONER Marvel Charles [facility]03754 Level 3 Est. Patient 21:54:06 CDT Vanessa Hickey MD [facility]-46088 Level 3 Est. Patient 08:54:46 CDT Alina Castaneda MD [facility]68886 Level 3 Est. Patient 09:32:11 CDT Marvel Charles [facility]64520 Level 3 Est. Patient 12:02:49 CDT Alina Castaneda MD [facility]81822 Level 3 Est. Patient 19:17:33 CDT Alina Castaneda MD [facility]71467 Level 3 Est. Patient 13:19:10 CDT Marvel Charles [facility]-42833 Level 3 Est. Patient 08:20:05 CDT Alina Castaneda MD [facility]67594 Level 3 Est. Patient 15:17:18 CDT Alina Castaneda MD [facility]29232 Level 3 Est. Patient 14:25:36 FAMILY PRACTICE NURSE PRACTITIONER Marvel Charles [facility]-28483 Level 3 Est. Patient 10:09:15 FAMILY PRACTICE NURSE PRACTITIONER [place] [facility]-66534 Level 3 Est. Patient 21:28:43 CDT Alina Castaneda MD [facility]24771 Level 3 Est. Patient 15:20:11 [facility] Patient 19:08:12 CDT Alina Castaneda MD [facility]-41256 Level 3 Est. Patient 15:06:39 CDT Marvel Charles [facility]-98616 Level 4 Est. Patient 17:48:15 CDT Alina Castaneda MD [facility]-83957 Level 3 Est. Patient 14:53:49 CDT Alina Castaneda MD [facility]-28895 Level 3 Est. Patient 09:35:16 CDT Alina Castaneda MD [facility]-13206 Level 3 Est. Patient 12:23:22 CDT Alina Castaneda MD [facility]22313 Level 3 Est. Patient 16:19:15 CDT Alina Castaneda MD [facility]89927 Level 3 Est. Patient 21:39:56 FAMILY PRACTICE NURSE PRACTITIONER Alina Castaneda MD [facility]-50453 Level 4 Est. Patient 14:12:56 FAMILY PRACTICE NURSE PRACTITIONER Alina Castaneda MD [facility]-94063 Level 2 Est. Patient 15:34:57 FAMILY PRACTICE NURSE PRACTITIONER Alina Castaneda MD [facility]-29321 Level 3 Est. Patient 12:17:04 FAMILY PRACTICE NURSE PRACTITIONER Alina Castaneda MD [facility]13459 Level 3 Est. Patient 09:18:18 FAMILY PRACTICE NURSE PRACTITIONER Marvel Charles [facility]-40547 Level 2 Est. Patient 21:50:24 CDT Alina Castaneda MD [facility]07319 Level 3 Est. Patient 09:17:28 CDT Marvel Charles [facility]-40346 Level 4 Est. Patient 18:54:02 CDT Alina Castaneda MD [facility]-68630 Level 3 Est. Patient 10:47:10 CDT Alina Castaneda MD [facility]-91679 Level 3 Est. Patient 09:22:20 CDT Marvel Charles [facility]-97719 Level 3 Est. Patient 16:39:43 CDT Marvel Charles [facility]-38651 Level 3 Est. Patient 16:05:16 CDT Alina Castaneda MD [facility]-40731 Level 3 Est. Patient 00:29:15 CDT Alina Castaneda MD [facility]47629 Level 3 Est. Patient 10:49:22 FAMILY PRACTICE NURSE PRACTITIONER Marvel Charles [facility]-57782 Level 3 Est. Patient 21:30:19 FAMILY PRACTICE NURSE PRACTITIONER Alina Castaneda MD PhD [facility] CPT-78921 Level 4 Est. Patient 17:04:11 FAMILY PRACTICE NURSE PRACTITIONER Marvel Charles [facility] CPT-00303 Level 3 Est. Patient 15:34:11 FAMILY PRACTICE NURSE PRACTITIONER [place] [facility] CPT-88150 Level 2 Est. Patient 12:51:58 FAMILY PRACTICE NURSE PRACTITIONER Alina Castaneda MD [facility] CPT-98601 Level 3 Est. Patient 13:20:01 FAMILY PRACTICE NURSE PRACTITIONER Alina Castaneda MD PhD [facility] CPT-88739 Level 3 Est. Patient 09:23:35 CDT Alina Castaneda MD [facility] Procedures Code Procedure Name Date Entry Date Standard Description CPT-09544 HGBA1C - LAB USE ONLY 09:30:27 FAMILY PRACTICE NURSE PRACTITIONER CPT-24841 BMP - LAB USE ONLY 09:30:27 FAMILY PRACTICE NURSE PRACTITIONER CPT-78226 Venipuncture Draw Fee 09:30:26 FAMILY PRACTICE NURSE PRACTITIONER CPT-TCMM Transitional Care Mgmt-Moderate 10:25:31 CDT CPT-47037 Bladder Scan 14:34:53 CDT CPT-15973 Bladder Scan 14:39:01 FAMILY PRACTICE NURSE PRACTITIONER CPT-TCMM Transitional Care Mgmt-Moderate 10:30:19 FAMILY PRACTICE NURSE PRACTITIONER CPT-48590 Bladder Scan 12:36:44 CDT CPT-58366 Bladder Scan 21:54:06 CDT CPT-G0008 Administration of Influenza Virus Vaccine 13:05:26 CDT CPT-73519 Fluzone Quadrivalent Intramuscular Suspension 0.5 ML 13: 05:26 CDT CPT-24102 Administration single or combination vaccine inc oral 11 :49:51 CDT CPT-27515 Pneumovax 11:49:51 CDT CPT-03227 Ribs unilateral 2V 12:37:22 FAMILY PRACTICE NURSE PRACTITIONER CPT-28769 Chest 2V Frontal and Lat 17:15:26 CDT CPT-41991 Abx/Therapy Injection 18:54:02 CDT CPT-J0696 Rocephin 1000 mg (Ceftriaxone) 16:00:32 CDT CPT-17132 Chest 2V Frontal and Lat 15:26:45 CDT CPT-55902 Chest 2V Frontal and Lat 10:23:27 CDT CPT-15118 Venipuncture Draw Fee 10:11:00 CDT CPT-27579 Administration single or combination vaccine inc oral 11 :56:38 CDT CPT-89805 Influenza split virus > age 3 11:56:38 CDT CPT-49593 Venipuncture Draw Fee 08:49:54 FAMILY PRACTICE NURSE PRACTITIONER CPT-15324 EKG Trac and Interp 17:54:19 FAMILY PRACTICE NURSE PRACTITIONER
--- OUTSIDE RECORDS SUMMARY | 2018-07-02 15:52 | XMS REPORT | Clinical Summary ---
Author Author Admin, TERELL Organization [facility] Address Unknown Phone Unavailable 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 Erazo SYNOPTIC METEOROLOGIST Benign paroxysmal positional vertigo Vertigo, benign paroxysmal position 386.11 Inactive Mima Erazo SYNOPTIC METEOROLOGIST Benign paroxysmal positional vertigo High-risk sexual behavior V69.2 Active Alina Castaneda MD PhD High-risk sexual behavior Erectile dysfunction 302.72 Active Alina Castaneda MD PhD Psychosexual dysfunction with inhibited sexual excitement Constipation 564.00 Active Alina Castaneda MD PhD Constipation, unspecified Skin lesion 709.9 Active Alina Castaneda MD PhD Unspecified disorder of skin and subcutaneous tissue Malaise and fatigue 780.79 Active Cherelle Speaks SYNOPTIC METEOROLOGIST Other malaise and fatigue Diarrhea 787.91 Active Cherelle Speaks SYNOPTIC METEOROLOGIST Diarrhea PHARYNGITIS 462 Active Cherelle Speaks SYNOPTIC METEOROLOGIST Acute pharyngitis Colitis 558.9 Active Mima Erazo SYNOPTIC METEOROLOGIST Other and unspecified noninfectious gastroenteritis and colitis WOUND, OPEN, NOSE ICD-873.20 Inactive Alina Castaneda MD PhD DIABETES, TYPE 2 ICD-250.00 Inactive Alina Castaneda MD PhD HYPERTENSION ICD-401.9 Inactive Alina Castaneda MD PhD URI ICD-465.9 Inactive Alina Castaneda MD PhD CHEST PAIN ICD-786.50 Inactive Alina Castaneda MD PhD FH STROKE ICD-V17.1 Inactive Marvel Charles COTTON BUYER FATIGUE ICD-780.79 Inactive Alina Castaneda MD PhD [...] mouth twice daily, for constipation DOCUSATE SODIUM 02198073786 No Longer Active Mima Erazo APRN Active FLONASE ALLERGY RELIEF 50 MCG/ACT NASAL SUSP One spray each nostril BID x 1 week then daily FLUTICASONE PROPIONATE 46643893018 Active Mimacecily Erazo APRN Active BD PEN NEEDLE MINI U/F 31G X 5 MM MISC 4 a day INSULIN PEN NEEDLE 09043204434 Active Mallashondaeh Ziglari COTTON BUYER Active AMITIZA 24 MCG ORAL CAPS Take one capsule BID for constipation LUBIPROSTONE 03473159827 Active Mimacecily Erazo APRN Active LEVEMIR FLEXTOUCH 100 UNIT/ML SC SOPN 75 units SQ each evening, for diabetes INSULIN DETEMIR 26220265212 Active Mima Erazo APRN Active TRUEPLUS LANCETS 30G MISC 3 a day LANCETS 47741839017 Active Mallashondaeh Ziglari COTTON BUYER Active TOLTERODINE TARTRATE 2 MG TABS 1 pill twice daily, for bladder TOLTERODINE TARTRATE 30754405086 No Longer Active Vanessa Hickey MD Active AMITIZA 24 MCG ORAL CAPS Take one capsule BID for constipation. LUBIPROSTONE 01154625558 No Longer Active Vanessa Hickey MD Active LOMOTIL 2.5-0.025 MG ORAL TABS take 1-2 tabs PO after each stool, no more than 8 in 24 hours DIPHENOXYLATE-ATROPINE 32563553820 Active Grace Nascimento RMA Active FLUVOXAMINE MALEATE 100 MG ORAL TABS take one tab every AM et HS, and take 1/ 2 tab at noon FLUVOXAMINE MALEATE 38864078832 Active Gracekailee Nascimento RMA Active METOPROLOL SUCCINATE 100 MG [id number]-PSA 1 by mouth daily for blood pressure METOPROLOL SUCCINATE 74274798686 No Longer Active Grace Nascimento RMA Active METFORMIN HCL ER 500 MG [id number]-MSF Take three tablets by mouth everyday METFORMIN HCL 27569185921 No Longer Active Grace Nascimento RMA Active LOVAZA 1 GM CAPS 4 daily (for triglycerides) OMEGA-3- ACID ETHYL ESTERS 95005564308 No Longer Active Grace Nascimento RMA Active TRAZODONE HCL 100 MG ORAL TABS 1 tab by mouth for sleep TRAZODONE HCL 67647086774 No Longer Active Grcae Nascimento RMA Active NOVOFINE 32G X 6 MM MISC use one four times per day INSULIN PEN NEEDLE 59101084894 No Longer Active Grace Nascimento RMA Active BACTROBAN 2 % CREAM Apply to affected area BID for up to 10 days MUPIROCIN CALCIUM 84888867633 No Longer Active Grace Nascimento RMA Active ZOFRAN 4 MG TABS 1 po q4hr PRN Nausea ONDANSETRON HCL 99088711456 Active Salina Han RMA Active KEFLEX 500 MG CAP 1 po BID x 7 days CEPHALEXIN 02863795007 No Longer Active Cherelle Avila APRN Active FLUVOXAMINE MALEATE 100 MG TABS Take one (1) tablet by mouth am, 1/2 at noon FLUVOXAMINE MALEATE 21975915569 No Longer Active Mima Erazo SYNOPTIC METEOROLOGIST Active CORICIDIN HBP CONGESTION/COUGH 10-200 MG ORAL CAPS Take as directed on box as needed for cold/flu symptoms DEXTROMETHORPHAN-GUAIFENESIN 36412069444 Active Cherelle Speaks SYNOPTIC METEOROLOGIST Active OMEGA-3 300 MG ORAL CAPS 4 caps by mouth daily OMEGA-3 FATTY ACIDS 52217675880 Active Mima Erazo SYNOPTIC METEOROLOGIST Active FLUVOXAMINE MALEATE 100 MG ORAL TABS Take 1/2 tab at noon FLUVOXAMINE MALEATE 44000135196 No Longer Active Cherelle Speaks SYNOPTIC METEOROLOGIST Active [facility] LUBRICANT EYE DROPS 0.4-0.3 % OPHTH SOLN POLYETHYL GLYCOL-PROPYL GLYCOL 62418544137 Active Mima Erazo SYNOPTIC METEOROLOGIST Active CLONAZEPAM 1 MG TABS 1/2 pill by mouth three times daily CLONAZEPAM 26765631276 Active Mason Loredo MD Active MIRALAX POWD 17g by mouth daily, for constipation POLYETHYLENE GLYCOL 3350 90003931388 Active Alina Castaneda MD PhD Active HYDROCODONE-ACETAMINOPHEN 5-325 MG TABS 2 tabs by mouth three times daily for pain HYDROCODONE-ACETAMINOPHEN 06852155938 Active Mima Erazo SYNOPTIC METEOROLOGIST Active HUMALOG KWIKPEN 100 UNIT/ML SC SOPN 20 units with breakfast, 10 units with lunch, 10 units with dinner, for diabetes INSULIN LISPRO (HUMAN ) 16141151724 Active Alina Castaneda MD PhD Active LATUDA 120 MG ORAL TABS 1 pill by mouth nightly LURASIDONE HCL 11512612365 Active Alina Castaneda MD PhD Active TRUETEST TEST STRP check blood sugars 3x/day GLUCOSE BLOOD 62782385698 Active Marvel Charles COTTON BUYER Active ACCU-CHEK ROSA UZMA Use device to check blood sugars BLOOD GLUCOSE MONITORING SUPPL 55899767291 No Longer Active Marvel Charles COTTON BUYER Active ACCU-CHEK ROSA INVITR STRP use strips with device to check blood sugars 3 times daily GLUCOSE BLOOD 02094516703 No Longer Active Marvel MARROQUIN Active VERAPAMIL HCL ER 180 MG ORAL CR-TABS 1 pill by mouth twice daily, for migraine prevention VERAPAMIL HCL 95488824159 Active CRYSTAL Rodrigues Active CYCLOBENZAPRINE HCL 10 MG TABS 1 tablet by mouth three times daily, scheduled CYCLOBENZAPRINE HCL 08286187289 No Longer Active Alina Castaneda MD PhD Active HUMALOG 100 UNIT/ML SOLN Take 20 units with breakfast, 10u with lunch and suppetr. INSULIN LISPRO (HUMAN) 99137877924 No Longer Active Alina Castaneda MD PhD Active TRUETEST TEST STRP check sugars 4x/day GLUCOSE BLOOD 83190880313 No Longer Active Alina Castaneda MD PhD Active MORPHINE SULFATE 30 MG TABS 1 pill by mouth twice daily, for pain MORPHINE SULFATE 03860708182 Active Mason Loredo MD Active ACYCLOVIR 400 MG ORAL TABS 1 pill three times daily x 5 days, for cold sore outbreak ACYCLOVIR 84628223446 No Longer Active Alina Castaneda MD PhD Active PENICILLIN V POTASSIUM 500 MG TABS 1 pill by mouth three times daily PENICILLIN V POTASSIUM 04187933224 No Longer Active Alina Castaneda MD PhD Active UROXATRAL 10 MG [id number]-TCD Take 1 tablet by mouth daily ALFUZOSIN HCL 31565350950 No Longer Active Alina Castaneda MD PhD Active THIOTHIXENE 5 MG CAPS by mouth twice a day THIOTHIXENE 09105242228 No Longer Active Alina Castaneda MD PhD Active ZYPREXA 7.5 MG TABS 1 at HS OLANZAPINE 62638291018 No Longer Active Alina Castaneda MD PhD Active BD INSULIN SYRINGE 28G X 1/2" 1 ML MISC 1 four times per day INSULIN SYRINGE-NEEDLE U-100 82726818967 Active Marvel MARROQUIN Active DETROL LA 4 MG [id number] Take 1 tablet by mouth daily TOLTERODINE TARTRATE 74903237088 No Longer Active Alina Castaneda MD PhD Active TERESE CONTOUR TEST STRP monitor blood sugars 3x/day GLUCOSE BLOOD 94851414293 No Longer Active Alina Castaneda MD PhD Active EQL TRUETEST TEST STRP Test blood sugar TID GLUCOSE BLOOD 61564894682 No Longer Active Alina Castaneda MD PhD Active FLUTICASONE PROPIONATE 50 MCG/ACT SUSP 2 sprays each nostril qDay x 30 days FLUTICASONE PROPIONATE 23635050703 No Longer Active Alina Castaneda MD PhD Active IBUPROFEN 200 MG TABS 1 Q 6 hr. PRN IBUPROFEN 80412067052 No Longer Active Alina Castaneda MD PhD Active NIACIN ER 500 MG CR-TABS 4 qHS (for triglycerides) NIACIN 28562226243 No Longer Active Alina Castaneda MD PhD Active ALFUZOSIN HCL ER 10 MG [id number]-SVQ 1 tablet daily ALFUZOSIN HCL 76906523294 Active CRYSTAL Rodrigues Active SAPHRIS 5 MG SUBL by mouth twice a day ASENAPINE MALEATE 33760087665 No Longer Active Marvel MARROQUIN Active ACETAMINOPHEN 500 MG TABS 2 Q 6 hr. PRN ACETAMINOPHEN 27510684680 No Longer Active Marvel MARROQUIN Active ORPHENADRINE CITRATE ER 100 MG FL71P-WLI 1 every 12 hr. as needed ORPHENADRINE CITRATE 61886835285 No Longer Active Alina Castaneda MD PhD Active NIACIN CR 500 MG CR-TABS 2 qHS NIACIN 42297282858 No Longer Active Alina Castaneda MD PhD Active AMOXICILLIN 500 MG CAPS 2 po BID x 10 days AMOXICILLIN 49134991148 No Longer Active Alina Castaneda MD PhD Active HYDROCODONE-ACETAMINOPHEN 7.5-325 MG TABS 1 four times a day as needed for pain HYDROCODONE-ACETAMINOPHEN 32220821457 No Longer Active Alina Castaneda MD PhD Active DOXEPIN HCL 10 MG CAPS Take 1 tablet by mouth daily DOXEPIN HCL 72112975026 No Longer Active Salina Han A Active NAVANE 10 MG CAPS 1/2 tablet twice a day THIOTHIXENE No Longer Active Salina Han A Active CYCLOBENZAPRINE HCL 10 MG TABS 1/2 tablet by mouth every 8 hours as needed for muscle spasms CYCLOBENZAPRINE HCL 10020498645 No Longer Active Alina Castaneda MD PhD Active BACTROBAN 2 % CREAM apply to ear and nose twice daily MUPIROCIN CALCIUM 85366728094 No Longer Active Alina Castaneda MD PhD Active HYDROCODONE-ACETAMINOPHEN 5-325 MG TABS take one tablet by mouth every four hours as needed for pain HYDROCODONE-ACETAMINOPHEN 55171441965 No Longer Active Alina Castaneda MD PhD Active ZOLPIDEM TARTRATE 10 MG TABS take at bedtime ZOLPIDEM TARTRATE 36490566218 Active Alina Castaneda MD PhD Active ZYPREXA 5 MG TABS take one tablet by mouth every evening OLANZAPINE 73005467975 No Longer Active Alina Castaneda MD PhD Active ALBUTEROL SULFATE 0.083 % NEBU SOLN one vial per nebulizer TID and PRN cough/ soa ALBUTEROL SULFATE 17298306867 No Longer Active Alina Castaneda MD PhD Active GUAIFENESIN 600 MG [id number]-TSI 1 tablet by mouth twice daily if needed for cough GUAIFENESIN 49155360602 No Longer Active Marvel MARROQUIN Active AZITHROMYCIN 500 MG SOLR 1 po q day AZITHROMYCIN 66097281389 No Longer Active Alina Castaneda MD PhD Active PROMETHAZINE-CODEINE 6.25-10 MG/5ML SYRP 1 tsp po q 6 hours prn cough PROMETHAZINE-CODEINE 88034693960 No Longer Active Alina Castaneda MD PhD Active CEFDINIR 300 MG CAPS by mouth twice a day CEFDINIR 90952501372 No Longer Active Alina Castaneda MD PhD Active METFORMIN HCL 500 MG FC80K-HKF Take 3 tablets by mouth everyday METFORMIN HCL 78457805543 No Longer Active Alina Castaneda MD PhD Active LEVEMIR 100 UNIT/ML SOLN 90 units SQ qHS INSULIN DETEMIR 90626978524 No Longer Active Marvel MARROQIUN Active TOPROL XL 100 MG [id number]-ZUV 1 @ HS METOPROLOL SUCCINATE 90545127451 No Longer Active Marvel MARROQUIN Active ALLOPURINOL 300 MG TABS Take one by mouth daily ALLOPURINOL 63820202035 Active Mima Erazo SYNOPTIC METEOROLOGIST Active ZYPREXA 10 MG TABS Take one by mouth daily OLANZAPINE 44483205961 No Longer Active Alnia Castaneda MD PhD Active NOVOLOG 100 UNIT/ML SOLN 40 units with every meal INSULIN ASPART 03507454576 No Longer Active Alina Castaneda MD PhD Active VERAPAMIL HCL CR 120 MG TAB CR 1 qPM VERAPAMIL HCL 90997266704 No Longer Active Salina ROJAS Active ZYPREXA 15 MG TABS Take 1 tablet by mouth daily OLANZAPINE 49634270136 No Longer Active Marvel MARROQUIN Active LISINOPRIL 20 MG TABS 1 BID LISINOPRIL 42173977597 Active Alina Castaneda MD PhD Active ALBUTEROL SULFATE (2.5 MG/3ML) 0.083% NEBU 1 neb tid and prn cough ALBUTEROL SULFATE 21722929346 No Longer Active Alina Castaneda MD PhD Active TRAVATAN Z 0.004 % SOLN 1 gtt each eye daily TRAVOPROST 64418042528 Active CRYSTAL Suarez Active LANTUS 100 UNIT/ML SOLN 60 units sq q hs INSULIN GLARGINE 21813408262 No Longer Active CRYSTAL Suarez Active ALBUTEROL SULFATE (2.5 MG/3ML) 0.083% NEBU 1 neb tid and prn cough ALBUTEROL SULFATE (2.5 MG/3ML) 0.083% NEBU 207154 ALBUTEROL SULFATE Inactive ZYPREXA 15 MG TABS Take 1 tablet by mouth daily ZYPREXA 15 MG TABS 799027 OLANZAPINE Inactive VERAPAMIL HCL CR 120 MG TAB CR 1 qPM VERAPAMIL HCL CR 120 MG TAB CR VERAPAMIL HCL Inactive ZYPREXA 10 MG TABS Take one by mouth daily ZYPREXA 10 MG TABS 540168 OLANZAPINE Inactive TOPROL XL 100 MG [id number]-SYI 1 @ HS TOPROL XL 100 MG [id number] METOPROLOL SUCCINATE Inactive LEVEMIR 100 UNIT/ML SOLN 90 units SQ qHS LEVEMIR 100 UNIT/ML SOLN INSULIN DETEMIR Inactive PROMETHAZINE-CODEINE 6.25-10 MG/5ML SYRP 1 tsp po q 6 hours prn cough PROMETHAZINE-CODEINE 6.25-10 MG/5ML SYRP 304449 PROMETHAZINE- CODEINE Inactive GUAIFENESIN 600 MG [id number]-RAF 1 tablet by mouth twice daily if needed for cough GUAIFENESIN 600 MG [id number]-LIJ GUAIFENESIN Inactive ALBUTEROL SULFATE 0.083 % NEBU SOLN one vial per nebulizer TID and PRN cough/ soa ALBUTEROL SULFATE 0.083 % NEBU SOLN 842972 ALBUTEROL SULFATE Inactive ZYPREXA 5 MG TABS take one tablet by mouth every evening ZYPREXA 5 MG TABS 572917 OLANZAPINE Inactive HYDROCODONE-ACETAMINOPHEN 5-325 MG TABS take one tablet by mouth every four hours as needed for pain HYDROCODONE-ACETAMINOPHEN 5-325 MG TABS 532718 HYDROCODONE-ACETAMINOPHEN Inactive BACTROBAN 2 % CREAM apply to ear and nose twice daily BACTROBAN 2 % CREAM 749260 MUPIROCIN CALCIUM Inactive CYCLOBENZAPRINE HCL 10 MG TABS 1/2 tablet by mouth every 8 hours as needed for muscle spasms CYCLOBENZAPRINE HCL 10 MG TABS 751839 CYCLOBENZAPRINE HCL Inactive NAVANE 10 MG CAPS 1/2 tablet twice a day NAVANE 10 MG CAPS THIOTHIXENE Inactive DOXEPIN HCL 10 MG CAPS Take 1 tablet by mouth daily DOXEPIN HCL 10 MG CAPS 4014488 DOXEPIN HCL Inactive HYDROCODONE-ACETAMINOPHEN 7.5-325 MG TABS 1 four times a day as needed for pain HYDROCODONE-ACETAMINOPHEN 7.5-325 MG TABS 498133 HYDROCODONE-ACETAMINOPHEN Inactive NIACIN CR 500 MG CR-TABS 2 qHS NIACIN CR 500 MG CR- TABS NIACIN Inactive ORPHENADRINE CITRATE ER 100 MG SA01A-ISQ 1 every 12 hr. as needed ORPHENADRINE CITRATE ER 100 MG [id number]-VDK ORPHENADRINE CITRATE Inactive ACETAMINOPHEN 500 MG TABS 2 Q 6 hr. PRN ACETAMINOPHEN 500 MG TABS 437864 ACETAMINOPHEN Inactive SAPHRIS 5 MG SUBL by mouth twice a day SAPHRIS 5 MG SUBL ASENAPINE MALEATE Inactive NIACIN ER 500 MG CR-TABS 4 qHS (for triglycerides) NIACIN ER 500 MG CR-TABS NIACIN Inactive IBUPROFEN 200 MG TABS 1 Q 6 hr. PRN IBUPROFEN 200 MG TABS 337618 IBUPROFEN Inactive FLUTICASONE PROPIONATE 50 MCG/ACT SUSP 2 sprays each nostril qDay x 30 days FLUTICASONE PROPIONATE 50 MCG/ACT SUSP 152351 FLUTICASONE PROPIONATE Inactive EQL TRUETEST TEST STRP Test blood sugar TID EQL TRUETEST TEST STRP GLUCOSE BLOOD Inactive TERESE CONTOUR TEST STRP monitor blood sugars 3x/day TERESE CONTOUR TEST STRP GLUCOSE BLOOD Inactive DETROL LA 4 MG [id number] Take 1 tablet by mouth daily DETROL LA 4 MG [id number] TOLTERODINE TARTRATE Inactive ZYPREXA 7.5 MG TABS 1 at HS ZYPREXA 7.5 MG TABS 619989 OLANZAPINE Inactive THIOTHIXENE 5 MG CAPS by mouth twice a day THIOTHIXENE 5 MG CAPS 356146 THIOTHIXENE Inactive UROXATRAL 10 MG UK66W-CVE Take 1 tablet by mouth daily UROXATRAL 10 MG [id number] ALFUZOSIN HCL Inactive ACYCLOVIR 400 MG ORAL TABS 1 pill three times daily x 5 days, for cold sore outbreak ACYCLOVIR 400 MG ORAL TABS 347708 ACYCLOVIR Inactive TRUETEST TEST STRP check sugars 4x/day TRUETEST TEST STRP GLUCOSE BLOOD Inactive HUMALOG 100 UNIT/ML SOLN Take 20 units with breakfast, 10u with lunch and suppetr. HUMALOG 100 UNIT/ML SOLN INSULIN LISPRO ( HUMAN) Inactive CYCLOBENZAPRINE HCL 10 MG TABS 1 tablet by mouth three times daily, scheduled CYCLOBENZAPRINE HCL 10 MG TABS 017796 CYCLOBENZAPRINE HCL Inactive ACCU-CHEK ROSA INVITR STRP use strips with device to check blood sugars 3 times daily ACCU-CHEK ROSA INVITR STRP GLUCOSE BLOOD Inactive ACCU-CHEK ROSA UZMA Use device to check blood sugars ACCU-CHEK ROSA UZMA BLOOD GLUCOSE MONITORING SUPPL Inactive FLUVOXAMINE MALEATE 100 MG ORAL TABS Take 1/2 tab at noon FLUVOXAMINE MALEATE 100 MG ORAL TABS 267994 FLUVOXAMINE MALEATE Inactive FLUVOXAMINE MALEATE 100 MG TABS Take one (1) tablet by mouth am, 1/2 at noon FLUVOXAMINE MALEATE 100 MG TABS 253380 FLUVOXAMINE MALEATE Inactive BACTROBAN 2 % CREAM Apply to affected area BID for up to 10 days BACTROBAN 2 % CREAM 102366 MUPIROCIN CALCIUM Inactive NOVOFINE 32G X 6 MM MISC use one four times per day NOVOFINE 32G X 6 MM MISC INSULIN PEN NEEDLE Inactive TRAZODONE HCL 100 MG ORAL TABS 1 tab by mouth for sleep TRAZODONE HCL 100 MG ORAL TABS 457678 TRAZODONE HCL Inactive LOVAZA 1 GM CAPS 4 daily (for triglycerides) LOVAZA 1 GM CAPS 733564 YTLSA-2-AXZN ETHYL ESTERS Inactive METFORMIN HCL ER 500 MG MV15Q-WXD Take three tablets by mouth everyday METFORMIN HCL ER 500 MG [id number] METFORMIN HCL Inactive METOPROLOL SUCCINATE 100 MG PG48C-XAX 1 by mouth daily for blood pressure METOPROLOL SUCCINATE 100 MG VU38S-CGY METOPROLOL SUCCINATE Inactive AMITIZA 24 MCG ORAL CAPS Take one capsule BID for constipation. AMITIZA 24 MCG ORAL CAPS LUBIPROSTONE Inactive TOLTERODINE TARTRATE 2 MG TABS 1 pill twice daily, for bladder TOLTERODINE TARTRATE 2 MG TABS 777210 TOLTERODINE TARTRATE Inactive COLACE 100 MG CAPS 1 pill by mouth twice daily, for constipation COLACE 100 MG CAPS 3410354 DOCUSATE SODIUM Inactive CEFDINIR 300 MG CAPS by mouth twice a day CEFDINIR 300 MG CAPS 358068 CEFDINIR Inactive AZITHROMYCIN 500 MG SOLR 1 po q day AZITHROMYCIN 500 MG SOLR 13849059501 AZITHROMYCIN Inactive AMOXICILLIN 500 MG CAPS 2 po BID x 10 days AMOXICILLIN 500 MG CAPS 146615 AMOXICILLIN Inactive PENICILLIN V POTASSIUM 500 MG TABS 1 pill by mouth three times daily PENICILLIN V POTASSIUM 500 MG TABS 888159 PENICILLIN V POTASSIUM Inactive KEFLEX 500 MG CAP 1 po BID x 7 days KEFLEX 500 MG CAP 745957 CEPHALEXIN Inactive Immunizations Vaccine Administration Date Value [...] Fluvirin, Fluarix, Agriflu(>=18 yo)) Fluzone (>3 yrs.) [[id number]] Influenza, seasonal, injectable pneumococcal immunization administered Pneumovax [...] Panel - Chemistry sodium, serum 137 mmol/L 726-152 8292/10/12 potassium, serum 4.8 mmol/L 3.5-5.2 chloride, serum 102 mmol/L 98-107 carbon dioxide, venous blood 27.6 mmol/L 21.0-32.0 blood glucose 168 mg/dL 65-110 calcium, serum 9.0 mg/dL 8.5-10.1 urea nitrogen, blood 15 mg/dL 7-18 creatinine, serum 1.04 mg/dL 0.55-1.30 sodium, serum 138 mmol/L 114-440 1879/11/11 potassium, serum 4.7 mmol/L 3.5-5.2 chloride, serum 103 mmol/L 98-107 carbon dioxide, venous blood 23.3 mmol/L 21.0-32.0 blood glucose 170 mg/dL 65-110 calcium, serum 8.6 mg/dL 8.5-10.1 urea nitrogen, blood 17 mg/dL 7-18 creatinine, serum 1.51 mg/dL 0.55-1.30 Lab Report: CBC W/DIFF, Basic Metabolic Panel - Hematology erythrocyte (RBC) count 4.54 10^6/MM^3 10*6/mm3 4.69-6.13 [...] % 11.6-14.8 platelet count 252 10^3/MM^3 10*3/mm3 150-720 5252/10/12 hemoglobin, blood 13.7 g/dL 13.5-17.5 hematocrit, blood 40.2 % 41.0-53.0 mean corpuscular volume, RBC 89 fL 80-97 mean corpuscular hemoglobin, RBC 30.1 pg 27.0-31.2 mean corpuscular hemoglobin concentration, RBC 34.0 G/DL % 31.8- 35.4 red blood cell distribution width 15.6 % 11.6-14.8 platelet count 240 10^3/MM^3 10*3/mm3 490-450 4618/10/12 lymphocytes as percent of blood leukocytes 26.9 % 20.5-51.1 monocytes as percent of blood leukocytes 8.3 % 1.7-9.3 neutrophils as percent of blood leukocytes 59.5 % 42.2-75.2 leukocyte count, blood 5.8 10^3/MM^3 10*3/mm3 4.6-10.2 Lab Report: HGBA1C - Chemistry hemoglobin A1C, blood, as % of total hemoglobin 6.1 % 4.3-6.0 hemoglobin A1C, blood, as % of total hemoglobin 6.3 % 4.3-6.0 hemoglobin A1C, blood, as % of total hemoglobin 6.1 % 4.3-6.0 Lab Report: Lipid Panel, HEPATIC PANEL, Uric Acid - Chemistry cholesterol, serum 187 mg/dL 712-218 9744/06/14 triglyceride, serum, fasting 246 mg/dL 30-200 HDL [...] negative Encounters Code Encounter Date Provider Facility CPT-22802 Level 3 Est. Patient 16:27:51 CDT Mima Erazo [facility]-65527 Level 3 Est. Patient 14:39:00 RUBY ON RAILS DEVELOPER Vanessa Hickey MD [facility]-47667 Level 2 Est. Patient 18:43:34 CDT Mima Erazo [facility] CPT-79018 Level 3 Est. Patient 16:22:09 CDT Cherelle Avila [facility] CPT-98555 Level 4 Est. Patient 17:55:14 CDT Mima Erazo [facility] CPT-59845 Level 2 Est. Patient 17:13:21 CDT Alina Castaneda MD [facility]-98553 Level 3 Est. Patient 14:46:15 CDT Vanessa Hickey MD [facility]-73166 Level 3 Est. Patient 09:34:56 CDT Alina Castaneda MD [facility]62790 Level 3 Est. Patient 21:40:19 CDT Mima Erazo [facility] CPT-77740 Level 3 Est. Patient 09:26:40 CDT Marvel Charles [facility]-11226 Level 3 Est. Patient 12:36:43 CDT Vanessa Hickey MD [facility]-10578 Level 3 Est. Patient 12:57:49 CDT Vanessa Hickey MD [facility]-60821 Level 3 Est. Patient 00:28:25 CDT Alina Castaneda MD [facility]33025 Level 2 Est. Patient 12:52:14 CDT Alina Castaneda MD [facility]77675 Level 3 Est. Patient 11:51:18 RUBY ON RAILS DEVELOPER Alina Castaneda MD [facility]-92424 Level 3 Est. Patient 10:09:22 RUBY ON RAILS DEVELOPER Alina Castaneda MD [facility]-92662 Level 3 Est. Patient 14:36:26 RUBY ON RAILS DEVELOPER Marvel Charles [facility]-41537 Level 3 Est. Patient 13:34:47 RUBY ON RAILS DEVELOPER Alina Castaneda MD [facility]75177 Level 3 Est. Patient 19:52:08 RUBY ON RAILS DEVELOPER Alina Castaneda MD [facility]12000 Level 3 Est. Patient 10:01:51 RUBY ON RAILS DEVELOPER Marvel Charles [facility]-28087 Level 3 Est. Patient 21:54:06 CDT Vanessa Hickey MD [facility]-42259 Level 3 Est. Patient 08:54:46 CDT Alina Castaneda MD [facility]46213 Level 3 Est. Patient 09:32:11 CDT Marvel Charles [facility]-21092 Level 3 Est. Patient 12:02:49 CDT Alina Castaneda MD [facility]00819 Level 3 Est. Patient 19:17:33 CDT Alina Castaneda MD [facility]-03444 Level 3 Est. Patient 13:19:10 CDT Marvel Charles [facility]-36295 Level 3 Est. Patient 08:20:05 CDT Alina Castaneda MD [facility]10906 Level 3 Est. Patient 15:17:18 CDT Alina Castaneda MD [facility]32894 Level 3 Est. Patient 14:25:36 RUBY ON RAILS DEVELOPER Marvel Charles [facility]09591 Level 3 Est. Patient 10:09:15 RUBY ON RAILS DEVELOPER Marvel Charles [facility] CPT-10727 Level 3 Est. Patient 21:28:43 CDT Alina Casatneda MD [facility] CPT-84076 Level 3 Est. Patient 15:20:11 CDT Marvel Thurstonestela [facility] CPT-98179 Level 4 Est. Patient 19:08:12 CDT Alina Castaneda MD [facility] CPT-55300 Level 3 Est. Patient 15:06:39 CDT Marvel Gurdeepajayestela [facility] CPT-15240 Level 4 Est. Patient 17:48:15 CDT Alina Castaneda MD [facility] CPT-14108 Level 3 Est. Patient 14:53:49 CDT Alina Castaneda MD [facility] CPT-32883 Level 3 Est. Patient 09:35:16 CDT Alina Castaneda MD [facility] CPT-88591 Level 3 Est. Patient 12:23:22 CDT Alina Castaneda MD [facility] CPT-24783 Level 3 Est. Patient 16:19:15 CDT Alina Castaneda MD [facility] CPT-76050 Level 3 Est. Patient 21:39:56 RUBY ON RAILS DEVELOPER Alina Castaneda MD [facility] CPT-80413 Level 4 Est. Patient 14:12:56 RUBY ON RAILS DEVELOPER Alina Castaneda MD [facility]-76538 Level 2 Est. Patient 15:34:57 RUBY ON RAILS DEVELOPER [facility] [facility] CPT-68069 Level 3 Est. Patient 12:17:04 RUBY ON RAILS DEVELOPER Alina Castaneda MD [facility]-99055 Level 3 Est. Patient 09:18:18 RUBY ON RAILS DEVELOPER Marvel Araceli [facility]-81779 Level 2 Est. Patient 21:50:24 CDT Alina Castaneda MD [facility]71209 Level 3 Est. Patient 09:17:28 CDT Brooksjohn Charles [facility]-68634 Level 4 Est. Patient 18:54:02 CDT Alina Castaneda MD [facility]73489 Level 3 Est. Patient 10:47:10 CDT Alina Castaneda MD [facility]88110 Level 3 Est. Patient 09:22:20 CDT Brookslashondanivia Araceli [facility]-65141 Level 3 Est. Patient 16:39:43 CDT Brooksjohn Charles [facility]-14857 Level 3 Est. Patient 16:05:16 CDT Alina Castaneda MD [facility]67660 Level 3 Est. Patient 00:29:15 CDT Alina Castaneda MD [facility]59063 Level 3 Est. Patient 10:49:22 RUBY ON RAILS DEVELOPER Brooksjohn Charles [facility]-93704 Level 3 Est. Patient 21:30:19 RUBY ON RAILS DEVELOPER Alina Castaneda MD [facility]-70009 Level 4 Est. Patient 17:04:11 RUBY ON RAILS DEVELOPER Marvel Charles [facility]60369 Level 3 Est. 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 Patient 12:51:58 RUBY ON RAILS DEVELOPER Alina Castaneda MD PhD [facility] CPT-45810 Level 3 Est. Patient 13:20:01 RUBY ON RAILS DEVELOPER Alina Castaneda MD PhD [facility] CPT-17084 Level 3 Est. Patient 09:23:35 CDT Alina Castaneda MD PhD [facility] Procedures Code Procedure Name Date Entry Date Standard Description CPT-14876 Bladder Scan 14:39:01 RUBY ON RAILS DEVELOPER CPT-TCMM Transitional Care Mgmt-Moderate 10:30:19 RUBY ON RAILS DEVELOPER CPT-85956 Bladder Scan 12:36:44 CDT CPT-50622 Bladder Scan 21:54:06 CDT CPT-G0008 Administration of Influenza Virus Vaccine 13:05:26 CDT CPT-83043 Fluzone Quadrivalent Intramuscular Suspension 0.5 ML 13: 05:26 CDT CPT-06374 Administration single or combination vaccine inc oral 11 :49:51 CDT CPT-49441 Pneumovax 11:49:51 CDT CPT-01077 Ribs unilateral 2V 12:37:22 RUBY ON RAILS DEVELOPER CPT-66405 Chest 2V Frontal and Lat 17:15:26 CDT CPT-79837 Abx/Therapy Injection 18:54:02 CDT CPT-J0696 Rocephin 1000 mg (Ceftriaxone) 16:00:32 CDT CPT-77212 Chest 2V Frontal and Lat 15:26:45 CDT CPT-93164 Chest 2V Frontal and Lat 10:23:27 CDT CPT-69379 Venipuncture Draw Fee 10:11:00 CDT CPT-26008 Administration single or combination vaccine inc oral 11 :56:38 CDT CPT-72286 Influenza split virus > age 3 11:56:38 CDT CPT-29479 Venipuncture Draw Fee 08:49:54 RUBY ON RAILS DEVELOPER CPT-25485 EKG Trac and Interp 17:54:19 RUBY ON RAILS DEVELOPER
--- OUTSIDE RECORDS SUMMARY | 2018-07-02 15:53 | XMS REPORT | Clinical Summary ---
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 Erazo BOILER COVERER HELPER Benign paroxysmal positional vertigo Vertigo, benign paroxysmal position 386.11 Inactive Mima Erazo [employer]ER HELPER Benign paroxysmal positional vertigo High-risk sexual behavior V69.2 Active Alina Castaneda MD PhD High-risk sexual behavior Erectile dysfunction 302.72 Active Alina Castaneda MD PhD Psychosexual dysfunction with inhibited sexual excitement Constipation 564.00 Active Alina Castaneda MD PhD Constipation, unspecified Skin lesion 709.9 Active Alina Castaneda MD PhD Unspecified disorder of skin and subcutaneous tissue Malaise and fatigue 780.79 Active Cherelle Speaks BOILER COVERER HELPER Other malaise and fatigue Diarrhea 787.91 Active Cherelle Speaks [employer] COVERER HELPER Diarrhea PHARYNGITIS 462 Active Cherelle Speaks BOILER COVERER HELPER Acute pharyngitis Colitis 558.9 Active Mima Erazo [employer]IL[employer] COVERER HELPER Other and unspecified noninfectious gastroenteritis and colitis WOUND, OPEN, NOSE ICD-873.20 Inactive Alina Castaneda MD PhD DIABETES, TYPE 2 ICD-250.00 Inactive Alina Castaneda MD PhD HYPERTENSION ICD-401.9 Inactive Alina Castaneda MD PhD URI ICD-465.9 Inactive Alina Castaneda MD PhD CHEST PAIN ICD-786.50 Inactive Alina Castaneda MD PhD FH STROKE ICD-V17.1 Inactive Marvel Charles SPECIAL PROCEDURES TECH FATIGUE ICD-780.79 Inactive Alina Castaneda MD PhD [...] mouth twice daily, for constipation DOCUSATE SODIUM 73493290117 No Longer Active Mima Erazo APRN Active FLONASE ALLERGY RELIEF 50 MCG/ACT NASAL SUSP One spray each nostril BID x 1 week then daily FLUTICASONE PROPIONATE 63431945805 Active Mimacecily Erazo APRN Active BD PEN NEEDLE MINI U/F 31G X 5 MM MISC 4 a day INSULIN PEN NEEDLE 02036171900 Active Mallashondaeh Ziglari SPECIAL PROCEDURES TECH Active AMITIZA 24 MCG ORAL CAPS Take one capsule BID for constipation LUBIPROSTONE 88761715460 Active Mimacecily Erazo APRN Active LEVEMIR FLEXTOUCH 100 UNIT/ML SC SOPN 75 units SQ each evening, for diabetes INSULIN DETEMIR 17488684627 Active Mima Erazo APRN Active TRUEPLUS LANCETS 30G MISC 3 a day LANCETS 84594576721 Active Mallashondaeh Ziglari SPECIAL PROCEDURES TECH Active TOLTERODINE TARTRATE 2 MG TABS 1 pill twice daily, for bladder TOLTERODINE TARTRATE 38830300339 No Longer Active Vanessa Hickey MD Active AMITIZA 24 MCG ORAL CAPS Take one capsule BID for constipation. LUBIPROSTONE 87350180601 No Longer Active Vanessa Hickey MD Active LOMOTIL 2.5-0.025 MG ORAL TABS take 1-2 tabs PO after each stool, no more than 8 in 24 hours DIPHENOXYLATE-ATROPINE 54513530115 Active Grace Nascimento RMA Active FLUVOXAMINE MALEATE 100 MG ORAL TABS take one tab every AM et HS, and take 1/ 2 tab at noon FLUVOXAMINE MALEATE 96318850805 Active Gracekailee Nascimento RMA Active METOPROLOL SUCCINATE 100 MG [id number] 1 by mouth daily for blood pressure METOPROLOL SUCCINATE 94918285081 No Longer Active Grace Nascimento RMA Active METFORMIN HCL ER 500 MG [id number] Take three tablets by mouth everyday METFORMIN HCL 78992751126 No Longer Active Grace Nascimento RMA Active LOVAZA 1 GM CAPS 4 daily (for triglycerides) OMEGA-3- ACID ETHYL ESTERS 83804365903 No Longer Active Grace Nascimento RMA Active TRAZODONE HCL 100 MG ORAL TABS 1 tab by mouth for sleep TRAZODONE HCL 20095424325 No Longer Active Grace Nascimento RMA Active NOVOFINE 32G X 6 MM MISC use one four times per day INSULIN PEN NEEDLE 24092175026 No Longer Active Grace Nascimento RMA Active BACTROBAN 2 % CREAM Apply to affected area BID for up to 10 days MUPIROCIN CALCIUM 61236906607 No Longer Active Grace Nascimento RMA Active ZOFRAN 4 MG TABS 1 po q4hr PRN Nausea ONDANSETRON HCL 43166307355 Active Salina Han RMA Active KEFLEX 500 MG CAP 1 po BID x 7 days CEPHALEXIN 97850075436 No Longer Active Cherelle Avila APRN Active FLUVOXAMINE MALEATE 100 MG TABS Take one (1) tablet by mouth am, 1/2 at noon FLUVOXAMINE MALEATE 55656143319 No Longer Active Mima Erazo [employer]ILER COVERER HELPER Active CORICIDIN HBP CONGESTION/COUGH 10-200 MG ORAL CAPS Take as directed on box as needed for cold/flu symptoms DEXTROMETHORPHAN-GUAIFENESIN 18137591616 Active Cherelle Speaks BOILER COVERER HELPER Active OMEGA-3 300 MG ORAL CAPS 4 caps by mouth daily OMEGA-3 FATTY ACIDS 47971292313 Active Mima Fierroum BOILER COVERER HELPER Active FLUVOXAMINE MALEATE 100 MG ORAL TABS Take 1/2 tab at noon FLUVOXAMINE MALEATE 59461233360 No Longer Active Cherelle Avila BOILER COVERER HELPER Active [facility] LUBRICANT EYE DROPS 0.4-0.3 % OPHTH SOLN POLYETHYL GLYCOL-PROPYL GLYCOL 16258141033 Active Mima Erazo BOILER COVERER HELPER Active CLONAZEPAM 1 MG TABS 1/2 pill by mouth three times daily CLONAZEPAM 68979330630 Active Mima Fierroum BOILER COVERER HELPER Active MIRALAX POWD 17g by mouth daily, for constipation POLYETHYLENE GLYCOL 3350 89860687277 Active Alina Castaneda MD PhD Active HYDROCODONE-ACETAMINOPHEN 5-325 MG TABS 2 tabs by mouth three times daily for pain HYDROCODONE-ACETAMINOPHEN 91226335483 Active Mima Erazo BOILER COVERER HELPER Active HUMALOG KWIKPEN 100 UNIT/ML SC SOPN 20 units with breakfast, 10 units with lunch, 10 units with dinner, for diabetes INSULIN LISPRO (HUMAN ) 28570176982 Active Alina Castaneda MD PhD Active LATUDA 120 MG ORAL TABS 1 pill by mouth nightly LURASIDONE HCL 74890679147 Active Alina Castaneda MD PhD Active TRUETEST TEST STRP check blood sugars 3x/day GLUCOSE BLOOD 46555703439 Active Marvel MENDOZAP Active ACCU-CHEK ROSA UZMA Use device to check blood sugars BLOOD GLUCOSE MONITORING SUPPL 31963536882 No Longer Active Marvel Charles SPECIAL PROCEDURES TECH Active ACCU-CHEK ROSA INVITR STRP use strips with device to check blood sugars 3 times daily GLUCOSE BLOOD 90606798045 No Longer Active Marvel MARROQUIN Active VERAPAMIL HCL ER 180 MG ORAL CR-TABS 1 pill by mouth twice daily, for migraine prevention VERAPAMIL HCL 07566710632 Active Alina Castaneda MD PhD Active CYCLOBENZAPRINE HCL 10 MG TABS 1 tablet by mouth three times daily, scheduled CYCLOBENZAPRINE HCL 44641474164 No Longer Active Alina Castaneda MD PhD Active HUMALOG 100 UNIT/ML SOLN Take 20 units with breakfast, 10u with lunch and suppetr. INSULIN LISPRO (HUMAN) 29994962412 No Longer Active Alina Castaneda MD PhD Active TRUETEST TEST STRP check sugars 4x/day GLUCOSE BLOOD 92964830090 No Longer Active Alina Castaneda MD PhD Active MORPHINE SULFATE 30 MG TABS 1 pill by mouth twice daily, for pain MORPHINE SULFATE 28937692478 Active Mima Erazo BOILER COVERER HELPER Active ACYCLOVIR 400 MG ORAL TABS 1 pill three times daily x 5 days, for cold sore outbreak ACYCLOVIR 71026321004 No Longer Active Alina Castaneda MD PhD Active PENICILLIN V POTASSIUM 500 MG TABS 1 pill by mouth three times daily PENICILLIN V POTASSIUM 68435188966 No Longer Active Alina Castaneda MD PhD Active UROXATRAL 10 MG [id number] Take 1 tablet by mouth daily ALFUZOSIN HCL 67863838991 No Longer Active Alina Castaneda MD PhD Active THIOTHIXENE 5 MG CAPS by mouth twice a day THIOTHIXENE 62172627943 No Longer Active Alina Castaneda MD PhD Active ZYPREXA 7.5 MG TABS 1 at HS OLANZAPINE 15054334807 No Longer Active Alina Castaneda MD PhD Active BD INSULIN SYRINGE 28G X 1/2" 1 ML MISC 1 four times per day INSULIN SYRINGE-NEEDLE U-100 73000971855 Active Marvel Thurstonari SPECIAL PROCEDURES TECH Active DETROL LA 4 MG [id number] Take 1 tablet by mouth daily TOLTERODINE TARTRATE 50011511135 No Longer Active Alina Castaneda MD PhD Active TERESE CONTOUR TEST STRP monitor blood sugars 3x/day GLUCOSE BLOOD 03883766373 No Longer Active Alina Castaneda MD PhD Active EQL TRUETEST TEST STRP Test blood sugar TID GLUCOSE BLOOD 75847836444 No Longer Active Alina Castaneda MD PhD Active FLUTICASONE PROPIONATE 50 MCG/ACT SUSP 2 sprays each nostril qDay x 30 days FLUTICASONE PROPIONATE 48245497210 No Longer Active Alina Castaneda MD PhD Active IBUPROFEN 200 MG TABS 1 Q 6 hr. PRN IBUPROFEN 74166326721 No Longer Active Alina Castaneda MD PhD Active NIACIN ER 500 MG CR-TABS 4 qHS (for triglycerides) NIACIN 48145746896 No Longer Active Alina Castaneda MD PhD Active ALFUZOSIN HCL ER 10 MG [id number] 1 tablet daily ALFUZOSIN HCL 29693321781 Active Vanessa Hickey MD Active SAPHRIS 5 MG SUBL by mouth twice a day ASENAPINE MALEATE 56042695767 No Longer Active Marvel MARROQUIN Active ACETAMINOPHEN 500 MG TABS 2 Q 6 hr. PRN ACETAMINOPHEN 87765276093 No Longer Active Marvel Thurstonari LOPEZ Active ORPHENADRINE CITRATE ER 100 MG [id number] 1 every 12 hr. as needed ORPHENADRINE CITRATE 36801192810 No Longer Active Alina Castaneda MD PhD Active NIACIN CR 500 MG CR-TABS 2 qHS NIACIN 80736135587 No Longer Active Alina Castaneda MD PhD Active AMOXICILLIN 500 MG CAPS 2 po BID x 10 days AMOXICILLIN 56969645943 No Longer Active Alina Castaneda MD PhD Active HYDROCODONE-ACETAMINOPHEN 7.5-325 MG TABS 1 four times a day as needed for pain HYDROCODONE-ACETAMINOPHEN 90083448797 No Longer Active Alina Castaneda MD PhD Active DOXEPIN HCL 10 MG CAPS Take 1 tablet by mouth daily DOXEPIN HCL 73492789560 No Longer Active Salina Han [facility] Active NAVANE 10 MG CAPS 1/2 tablet twice a day THIOTHIXENE No Longer Active Salina Han [facility] Active CYCLOBENZAPRINE HCL 10 MG TABS 1/2 tablet by mouth every 8 hours as needed for muscle spasms CYCLOBENZAPRINE HCL 93790574310 No Longer Active Alina Castaneda MD PhD Active BACTROBAN 2 % CREAM apply to ear and nose twice daily MUPIROCIN CALCIUM 76375265149 No Longer Active Alina Castaneda MD PhD Active HYDROCODONE-ACETAMINOPHEN 5-325 MG TABS take one tablet by mouth every four hours as needed for pain HYDROCODONE-ACETAMINOPHEN 13241795131 No Longer Active Alina Castaneda MD PhD Active ZOLPIDEM TARTRATE 10 MG TABS take at bedtime ZOLPIDEM TARTRATE 72236614991 Active Alina Castaneda MD PhD Active ZYPREXA 5 MG TABS take one tablet by mouth every evening OLANZAPINE 64728616938 No Longer Active Alina Castaneda MD PhD Active ALBUTEROL SULFATE 0.083 % NEBU SOLN one vial per nebulizer TID and PRN cough/ soa ALBUTEROL SULFATE 93790217923 No Longer Active Alina Castaneda MD PhD Active GUAIFENESIN 600 MG [id number] 1 tablet by mouth twice daily if needed for cough GUAIFENESIN 94336380487 No Longer Active Marvel MARROQUIN Active AZITHROMYCIN 500 MG SOLR 1 po q day AZITHROMYCIN 09859223309 No Longer Active Alina Castaneda MD PhD Active PROMETHAZINE-CODEINE 6.25-10 MG/5ML SYRP 1 tsp po q 6 hours prn cough PROMETHAZINE-CODEINE 51388523729 No Longer Active Alina Castaneda MD PhD Active CEFDINIR 300 MG CAPS by mouth twice a day CEFDINIR 23292022882 No Longer Active Alina Castaneda MD PhD Active METFORMIN HCL 500 MG [id number] Take 3 tablets by mouth everyday METFORMIN HCL 12700901426 No Longer Active Alina Castaneda MD PhD Active LEVEMIR 100 UNIT/ML SOLN 90 units SQ qHS INSULIN DETEMIR 13308358240 No Longer Active Marvel MARROQUIN Active TOPROL XL 100 MG [id number]-DES 1 @ HS METOPROLOL SUCCINATE 84401954910 No Longer Active Marvel MARROQUIN Active ALLOPURINOL 300 MG TABS Take one by mouth daily ALLOPURINOL 55739498507 Active Mima Erazo BOILER COVERER HELPER Active ZYPREXA 10 MG TABS Take one by mouth daily OLANZAPINE 59127439255 No Longer Active Alina Castaneda MD PhD Active NOVOLOG 100 UNIT/ML SOLN 40 units with every meal INSULIN ASPART 21676027004 No Longer Active Alina Castaneda MD PhD Active VERAPAMIL HCL CR 120 MG TAB CR 1 qPM VERAPAMIL HCL 08993203843 No Longer Active Salina ROJAS Active ZYPREXA 15 MG TABS Take 1 tablet by mouth daily OLANZAPINE 35154877709 No Longer Active Marvel MARROQUIN Active LISINOPRIL 20 MG TABS 1 BID LISINOPRIL 24757833355 Active Alina Castaneda MD PhD Active ALBUTEROL SULFATE (2.5 MG/3ML) 0.083% NEBU 1 neb tid and prn cough ALBUTEROL SULFATE 43534884434 No Longer Active Alina Castaneda MD PhD Active TRAVATAN Z 0.004 % SOLN 1 gtt each eye daily TRAVOPROST 61519337955 Active CRYSTAL Suarez Active LANTUS 100 UNIT/ML SOLN 60 units sq q hs INSULIN GLARGINE 27344789227 No Longer Active CRYSTAL Suarez Active ALBUTEROL SULFATE (2.5 MG/3ML) 0.083% NEBU 1 neb tid and prn cough ALBUTEROL SULFATE (2.5 MG/3ML) 0.083% NEBU 841193 ALBUTEROL SULFATE Inactive ZYPREXA 15 MG TABS Take 1 tablet by mouth daily ZYPREXA 15 MG TABS 904383 OLANZAPINE Inactive VERAPAMIL HCL CR 120 MG TAB CR 1 qPM VERAPAMIL HCL CR 120 MG TAB CR VERAPAMIL HCL Inactive ZYPREXA 10 MG TABS Take one by mouth daily ZYPREXA 10 MG TABS 699968 OLANZAPINE Inactive TOPROL XL 100 MG [id number] 1 @ HS TOPROL XL 100 MG [id number]-KAI METOPROLOL SUCCINATE Inactive LEVEMIR 100 UNIT/ML SOLN 90 units SQ qHS LEVEMIR 100 UNIT/ML SOLN INSULIN DETEMIR Inactive PROMETHAZINE-CODEINE 6.25-10 MG/5ML SYRP 1 tsp po q 6 hours prn cough PROMETHAZINE-CODEINE 6.25-10 MG/5ML SYRP 445894 PROMETHAZINE- CODEINE Inactive GUAIFENESIN 600 MG [id number] 1 tablet by mouth twice daily if needed for cough GUAIFENESIN 600 MG [id number]-[id number] GUAIFENESIN Inactive ALBUTEROL SULFATE 0.083 % NEBU SOLN one vial per nebulizer TID and PRN cough/ soa ALBUTEROL SULFATE 0.083 % NEBU SOLN 351232 ALBUTEROL SULFATE Inactive ZYPREXA 5 MG TABS take one tablet by mouth every evening ZYPREXA 5 MG TABS 951762 OLANZAPINE Inactive HYDROCODONE-ACETAMINOPHEN 5-325 MG TABS take one tablet by mouth every four hours as needed for pain HYDROCODONE-ACETAMINOPHEN 5-325 MG TABS 610152 HYDROCODONE-ACETAMINOPHEN Inactive BACTROBAN 2 % CREAM apply to ear and nose twice daily BACTROBAN 2 % CREAM 039770 MUPIROCIN CALCIUM Inactive CYCLOBENZAPRINE HCL 10 MG TABS 1/2 tablet by mouth every 8 hours as needed for muscle spasms CYCLOBENZAPRINE HCL 10 MG TABS 679018 CYCLOBENZAPRINE HCL Inactive NAVANE 10 MG CAPS 1/2 tablet twice a day NAVANE 10 MG CAPS THIOTHIXENE Inactive DOXEPIN HCL 10 MG CAPS Take 1 tablet by mouth daily DOXEPIN HCL 10 MG CAPS 4149031 DOXEPIN HCL Inactive HYDROCODONE-ACETAMINOPHEN 7.5-325 MG TABS 1 four times a day as needed for pain HYDROCODONE-ACETAMINOPHEN 7.5-325 MG TABS 742125 HYDROCODONE-ACETAMINOPHEN Inactive NIACIN CR 500 MG CR-TABS 2 qHS NIACIN CR 500 MG CR- TABS NIACIN Inactive ORPHENADRINE CITRATE ER 100 MG [id number] 1 every 12 hr. as needed ORPHENADRINE CITRATE ER 100 MG [id number] ORPHENADRINE CITRATE Inactive ACETAMINOPHEN 500 MG TABS 2 Q 6 hr. PRN ACETAMINOPHEN 500 MG TABS 232475 ACETAMINOPHEN Inactive SAPHRIS 5 MG SUBL by mouth twice a day SAPHRIS 5 MG SUBL ASENAPINE MALEATE Inactive NIACIN ER 500 MG CR-TABS 4 qHS (for triglycerides) NIACIN ER 500 MG CR-TABS NIACIN Inactive IBUPROFEN 200 MG TABS 1 Q 6 hr. PRN IBUPROFEN 200 MG TABS 923671 IBUPROFEN Inactive FLUTICASONE PROPIONATE 50 MCG/ACT SUSP 2 sprays each nostril qDay x 30 days FLUTICASONE PROPIONATE 50 MCG/ACT SUSP 025105 FLUTICASONE PROPIONATE Inactive EQL TRUETEST TEST STRP Test blood sugar TID EQL TRUETEST TEST STRP GLUCOSE BLOOD Inactive TERESE CONTOUR TEST STRP monitor blood sugars 3x/day TERESE CONTOUR TEST STRP GLUCOSE BLOOD Inactive DETROL LA 4 MG [id number] Take 1 tablet by mouth daily DETROL LA 4 MG [id number]-[id number] TOLTERODINE TARTRATE Inactive ZYPREXA 7.5 MG TABS 1 at HS ZYPREXA 7.5 MG TABS 731669 OLANZAPINE Inactive THIOTHIXENE 5 MG CAPS by mouth twice a day THIOTHIXENE 5 MG CAPS 616565 THIOTHIXENE Inactive UROXATRAL 10 MG [id number] Take 1 tablet by mouth daily UROXATRAL 10 MG [id number] ALFUZOSIN HCL Inactive ACYCLOVIR 400 MG ORAL TABS 1 pill three times daily x 5 days, for cold sore outbreak ACYCLOVIR 400 MG ORAL TABS 647983 ACYCLOVIR Inactive TRUETEST TEST STRP check sugars 4x/day TRUETEST TEST STRP GLUCOSE BLOOD Inactive HUMALOG 100 UNIT/ML SOLN Take 20 units with breakfast, 10u with lunch and suppetr. HUMALOG 100 UNIT/ML SOLN INSULIN LISPRO ( HUMAN) Inactive CYCLOBENZAPRINE HCL 10 MG TABS 1 tablet by mouth three times daily, scheduled CYCLOBENZAPRINE HCL 10 MG TABS 585090 CYCLOBENZAPRINE HCL Inactive ACCU-CHEK ROSA INVITR STRP use strips with device to check blood sugars 3 times daily ACCU-CHEK ROSA INVITR STRP GLUCOSE BLOOD Inactive ACCU-CHEK ROSA UZMA Use device to check blood sugars ACCU-CHEK ROSA UZMA BLOOD GLUCOSE MONITORING SUPPL Inactive FLUVOXAMINE MALEATE 100 MG ORAL TABS Take 1/2 tab at noon FLUVOXAMINE MALEATE 100 MG ORAL TABS 298829 FLUVOXAMINE MALEATE Inactive FLUVOXAMINE MALEATE 100 MG TABS Take one (1) tablet by mouth am, 1/2 at noon FLUVOXAMINE MALEATE 100 MG TABS 218764 FLUVOXAMINE MALEATE Inactive BACTROBAN 2 % CREAM Apply to affected area BID for up to 10 days BACTROBAN 2 % CREAM 225662 MUPIROCIN CALCIUM Inactive NOVOFINE 32G X 6 MM MISC use one four times per day NOVOFINE 32G X 6 MM MISC INSULIN PEN NEEDLE Inactive TRAZODONE HCL 100 MG ORAL TABS 1 tab by mouth for sleep TRAZODONE HCL 100 MG ORAL TABS 796308 TRAZODONE HCL Inactive LOVAZA 1 GM CAPS 4 daily (for triglycerides) LOVAZA 1 GM CAPS 518194 VDBHW-7-YNAM ETHYL ESTERS Inactive METFORMIN HCL ER 500 MG ES61H-BQW Take three tablets by mouth everyday METFORMIN HCL ER 500 MG WL26J-CWF METFORMIN HCL Inactive METOPROLOL SUCCINATE 100 MG CF45G-RGD 1 by mouth daily for blood pressure METOPROLOL SUCCINATE 100 MG GC31E-IXJ METOPROLOL SUCCINATE Inactive AMITIZA 24 MCG ORAL CAPS Take one capsule BID for constipation. AMITIZA 24 MCG ORAL CAPS LUBIPROSTONE Inactive TOLTERODINE TARTRATE 2 MG TABS 1 pill twice daily, for bladder TOLTERODINE TARTRATE 2 MG TABS 372286 TOLTERODINE TARTRATE Inactive COLACE 100 MG CAPS 1 pill by mouth twice daily, for constipation COLACE 100 MG CAPS 0387234 DOCUSATE SODIUM Inactive CEFDINIR 300 MG CAPS by mouth twice a day CEFDINIR 300 MG CAPS 544222 CEFDINIR Inactive AZITHROMYCIN 500 MG SOLR 1 po q day AZITHROMYCIN 500 MG SOLR 89680331017 AZITHROMYCIN Inactive AMOXICILLIN 500 MG CAPS 2 po BID x 10 days AMOXICILLIN 500 MG CAPS 378473 AMOXICILLIN Inactive PENICILLIN V POTASSIUM 500 MG TABS 1 pill by mouth three times daily PENICILLIN V POTASSIUM 500 MG TABS 207901 PENICILLIN V POTASSIUM Inactive KEFLEX 500 MG CAP 1 po BID x 7 days KEFLEX 500 MG CAP 170598 CEPHALEXIN Inactive Immunizations Vaccine Administration Date Value [...] Fluvirin, Fluarix, Agriflu(>=18 yo)) Fluzone (>3 yrs.) [NOY301] Influenza, seasonal, injectable pneumococcal immunization administered Pneumovax [...] Panel - Chemistry sodium, serum 137 mmol/L 395-449 1448/10/12 potassium, serum 4.8 mmol/L 3.5-5.2 chloride, serum 102 mmol/L 98-107 carbon dioxide, venous blood 27.6 mmol/L 21.0-32.0 blood glucose 168 mg/dL 65-110 calcium, serum 9.0 mg/dL 8.5-10.1 urea nitrogen, blood 15 mg/dL 7-18 creatinine, serum 1.04 mg/dL 0.55-1.30 sodium, serum 138 mmol/L 957-520 3178/11/11 potassium, serum 4.7 mmol/L 3.5-5.2 chloride, serum [...] % 11.6-14.8 platelet count 240 10^3/MM^3 10*3/mm3 295-283 8133/11/11 leukocyte count, blood 9.6 10^3/MM^3 10*3/mm3 4.6-10.2 [...] 4.7 mg/dL 2.6-7.2 cholesterol, serum 142 mg/dL 277-030 1902/06/26 triglyceride, serum, fasting 272 mg/dL 30-200 HDL [...] negative Encounters Code Encounter Date Provider Facility CPT-92382 Level 3 Est. Patient 16:27:51 CDT Mima Erazo [facility]-42385 Level 3 Est. Patient 14:39:00 PUSHER OPERATOR Vanessa Hickey MD [facility]-74205 Level 2 Est. Patient 18:43:34 CDT Mima Erazo [facility] named [facility] CPT-92439 Level 3 Est. Patient 16:22:09 CDT Cherelle Avila [facility] CPT-13609 Level 4 Est. Patient 17:55:14 CDT Mima Erazo [facility]-33605 Level 2 Est. Patient 17:13:21 CDT Alina Castaneda MD [facility] [place]-15545 Level 3 Est. Patient 14:46:15 CDT Vanessa Hickey MD [facility]-80215 Level 3 Est. Patient 09:34:56 CDT Alina Castaneda MD [facility]18892 Level 3 Est. Patient 21:40:19 CDT Mima Erazo [facility]-37407 Level 3 Est. Patient 09:26:40 CDT Marvel Charles [facility]-75264 Level 3 Est. Patient 12:36:43 CDT Vanessa Hickey MD [facility]-31454 Level 3 Est. Patient 12:57:49 CDT Vanessa Hickey MD [facility]-58151 Level 3 Est. Patient 00:28:25 CDT Alina Castaneda MD [facility]70511 Level 2 Est. Patient 12:52:14 CDT Alina Castaneda MD [facility]85960 Level 3 Est. Patient 11:51:18 PUSHER OPERATOR Alina Castaneda MD [facility] [place]-22849 Level 3 Est. Patient 10:09:22 PUSHER OPERATOR Alina Castaneda MD [facility]-32543 Level 3 Est. Patient 14:36:26 PUSHER OPERATOR Marvel Charles [facility]-93271 Level 3 Est. Patient 13:34:47 PUSHER OPERATOR Alina Castaneda MD [facility]-72133 Level 3 Est. Patient 19:52:08 PUSHER OPERATOR Alina Castaneda MD [facility]-76738 Level 3 Est. Patient 10:01:51 PUSHER OPERATOR Marvel Charles [facility]-90157 Level 3 Est. Patient 21:54:06 CDT Vanessa Hickey MD [facility]-91527 Level 3 Est. Patient 08:54:46 CDT Alina Castaneda MD [facility]-97791 Level 3 Est. Patient 09:32:11 CDT Marvel Charles [facility]-86092 Level 3 Est. Patient 12:02:49 CDT Alina Castaneda MD [facility]-27435 Level 3 Est. Patient 19:17:33 CDT Alina Castaneda MD [facility] [place]-02670 Level 3 Est. Patient 13:19:10 CDT Marvel Charles [facility]-28137 Level 3 Est. Patient 08:20:05 CDT Alina Castaneda MD [facility]63447 Level 3 Est. Patient 15:17:18 CDT Alina Castaenda MD [facility] [place]-15751 Level 3 Est. Patient 14:25:36 PUSHER OPERATOR Marvel Charles [facility]-08023 Level 3 Est. Patient 10:09:15 PUSHER OPERATOR Marvel Charles [facility] CPT-70839 Level 3 Est. Patient 21:28:43 CDT Alina Castaneda MD [facility]-68535 Level 3 Est. Patient 15:20:11 CDT Marvel Thurstonestela [facility] CPT-20302 Level 4 Est. Patient 19:08:12 CDT Alina Castaneda MD [facility] CPT-66193 Level 3 Est. Patient 15:06:39 CDT Marvel Thurstonestela [facility] CPT-11128 Level 4 Est. Patient 17:48:15 CDT Alina Castaneda MD [facility] [place]-70232 Level 3 Est. Patient 14:53:49 CDT Alina Castaneda MD [facility] CPT-12636 Level 3 Est. Patient 09:35:16 CDT Alina Castaneda MD [facility]-48869 Level 3 Est. Patient 12:23:22 CDT Alina Castaneda MD [facility] CPT-51567 Level 3 Est. Patient 16:19:15 CDT Alina Castaneda MD [facility] CPT-04655 Level 3 Est. Patient 21:39:56 PUSHER OPERATOR Alina Castaneda MD [facility] CPT-98973 Level 4 Est. Patient 14:12:56 PUSHER OPERATOR Alina Castaneda MD [facility] [place]-12091 Level 2 Est. Patient 15:34:57 PUSHER OPERATOR Alina Castaneda MD [facility] CPT-00025 Level 3 Est. Patient 12:17:04 PUSHER OPERATOR Alina Castaneda MD [facility] [place]-65129 Level 3 Est. Patient 09:18:18 PUSHER OPERATOR Brookslashondanivia Araceli [facility] [place]-58722 Level 2 Est. Patient 21:50:24 CDT Alina Castaneda MD [facility]29442 Level 3 Est. Patient 09:17:28 CDT Marvel Charles [facility]-38155 Level 4 Est. Patient 18:54:02 CDT Alina Castaneda MD [facility]45125 Level 3 Est. Patient 10:47:10 CDT Alina Castaneda MD [facility]70552 Level 3 Est. Patient 09:22:20 CDT Brookslashondanivia Araceli [facility] [place]-20082 Level 3 Est. Patient 16:39:43 CDT Brooksjohn Charles [facility] [place]-91736 Level 3 Est. Patient 16:05:16 CDT Alina Castaneda MD [facility]24222 Level 3 Est. Patient 00:29:15 CDT Alina Castaneda MD [facility] Level 3 Est. Patient 10:49:22 PUSHER OPERATOR Marvel Charles [facility] Level 3 Est. Patient 21:30:19 PUSHER OPERATOR Alina Castaneda MD [facility] [place]-[address] Level 4 Est. Patient 17:04:11 PUSHER OPERATOR Marvel Charles [facility] Level 3 Est. Patient 15:34:11 PUSHER OPERATOR Marvel Charles [facility] [place]-[address] Level 2 Est. Patient 12:51:58 PUSHER OPERATOR Alina Castaneda MD PhD [facility] CPT-02170 Level 3 Est. Patient 13:20:01 PUSHER OPERATOR Alina Castaneda MD PhD [facility] CPT-52245 Level 3 Est. Patient 09:23:35 CDT Alina Castaneda MD PhD [facility] Procedures Code Procedure Name Date Entry Date Standard Description CPT-43856 Bladder Scan 14:39:01 PUSHER OPERATOR CPT-TCMM Transitional Care Mgmt-Moderate 10:30:19 PUSHER OPERATOR CPT-31286 Bladder Scan 12:36:44 CDT CPT-88817 Bladder Scan 21:54:06 CDT CPT-G0008 Administration of Influenza Virus Vaccine 13:05:26 CDT CPT-92440 Fluzone Quadrivalent Intramuscular Suspension 0.5 ML 13: 05:26 CDT CPT-85348 Administration single or combination vaccine inc oral 11 :49:51 CDT CPT-85975 Pneumovax 11:49:51 CDT CPT-83975 Ribs unilateral 2V 12:37:22 PUSHER OPERATOR CPT-09437 Chest 2V Frontal and Lat 17:15:26 CDT CPT-31523 Abx/Therapy Injection 18:54:02 CDT CPT-J0696 Rocephin 1000 mg (Ceftriaxone) 16:00:32 CDT CPT-92148 Chest 2V Frontal and Lat 15:26:45 CDT CPT-46920 Chest 2V Frontal and Lat 10:23:27 CDT CPT-97071 Venipuncture Draw Fee 10:11:00 CDT CPT-91651 Administration single or combination vaccine inc oral 11 :56:38 CDT CPT-38597 Influenza split virus > age 3 11:56:38 CDT CPT-24126 Venipuncture Draw Fee 08:49:54 PUSHER OPERATOR CPT-32508 EKG Trac and Interp 17:54:19 PUSHER OPERATOR
--- OUTSIDE RECORDS SUMMARY | 2018-07-02 15:55 | XMS REPORT | Clinical Summary ---
Author Author Admin, TERELL Organization [facility] Address Unknown Phone Unavailable Allergies, Adverse Reactions, Alerts Allergy Name Reaction Description Start Date Severity Status Provider PROZAC Critical Active CRYSTAL Suarez ABILIFGreg Critical Active CRYSTAL Suarez Conditions or Problems Problem Name Problem Code Onset Date Status Entry Date Provider Comment Standard Description Annotate ESSENTIAL HYPERTENSION, BENIGN 401.1 Active Alina Castaneda MD PhD Benign essential hypertension WOUND, OPEN, NOSE 873.20 Resolved Alina Castnaeda MD PhD Open wound of nose, unspecified [...] 10u lunch and supper INSULIN LISPRO (HUMAN) 03562170156 Active Marvel MENDOZAP Active LATUDA 120 MG ORAL TABS 1 pill by mouth nightly LURASIDONE HCL 16934125725 Active Alina Castaneda MD PhD Active COLACE 100 MG CAPS 1 pill by mouth twice daily, for constipation DOCUSATE SODIUM 98145522382 Active Alina Castaneda MD PhD Active TRUETEST TEST STRP check blood sugars 3x/day GLUCOSE BLOOD 84709315343 Active Mallashondaeh 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 ASSISTANT CHIEF ENGINEER Active ACCU-CHEK ROSA UZMA Use device to check blood sugars BLOOD GLUCOSE MONITORING SUPPL 98411385749 No Longer Active Maliheh Ziglari ASSISTANT CHIEF ENGINEER Active ACCU-CHEK ROSA INVITR STRP use strips with device to check blood sugars 3 times daily GLUCOSE BLOOD 08069869070 No Longer Active Mallashondaeh 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 ASSISTANT CHIEF ENGINEER Active VERAPAMIL HCL ER 180 MG ORAL CR-TABS 1 pill by mouth twice daily, for migraine prevention VERAPAMIL HCL 82160087037 Active Alina Castaneda MD PhD Active CYCLOBENZAPRINE HCL 10 MG TABS 1 tablet by mouth three times daily, scheduled CYCLOBENZAPRINE HCL 49021032041 No Longer Active Alina Castnaeda MD PhD Active HUMALOG 100 UNIT/ML SOLN Take 20 units with breakfast, 10u with lunch and suppetr. INSULIN LISPRO (HUMAN) 78633417713 No Longer Active Alina Castaneda MD PhD Active TRUETEST TEST STRP check sugars 4x/day GLUCOSE BLOOD 26733528493 No Longer Active Alina Castaneda MD PhD Active MORPHINE SULFATE 30 MG TABS 1 pill by mouth twice daily, for pain MORPHINE SULFATE 62460289963 Active Mason Loredo MD Active ACYCLOVIR 400 MG ORAL TABS 1 pill three times daily x 5 days, for cold sore outbreak ACYCLOVIR 52761267143 No Longer Active Alina Castaneda MD PhD Active PENICILLIN V POTASSIUM 500 MG TABS 1 pill by mouth three times daily PENICILLIN V POTASSIUM 71820197606 No Longer Active Alina Castaneda MD PhD Active UROXATRAL 10 MG [id number]-KHC Take 1 tablet by mouth daily ALFUZOSIN HCL 68991802022 No Longer Active Alina Castaneda MD PhD Active THIOTHIXENE 5 MG CAPS by mouth twice a day THIOTHIXENE 95464822227 No Longer Active Alina Castaneda MD PhD Active ZYPREXA 7.5 MG TABS 1 at HS OLANZAPINE 10111937723 No Longer Active Alina Castaneda MD PhD Active LEVEMIR 100 UNIT/ML SOLN Take 70 u at 7-8pm INSULIN DETEMIR 78220165259 Active Marvel Mackenzieglari ASSISTANT CHIEF ENGINEER Active BD INSULIN SYRINGE 28G X 1/2" 1 ML MISC 1 four times per day INSULIN SYRINGE-NEEDLE U-100 45074767854 Active Marvel Mackenzieglari ASSISTANT CHIEF ENGINEER Active TOLTERODINE TARTRATE 2 MG TABS 1 pill twice daily, for bladder TOLTERODINE TARTRATE 86244660327 Active Alina Castaneda MD PhD Active DETROL LA 4 MG [id number] Take 1 tablet by mouth daily TOLTERODINE TARTRATE 22863603960 No Longer Active Alina Castaneda MD PhD Active HYDROCODONE-ACETAMINOPHEN 5-325 MG TABS 2 tabs by mouth three times daily as needed for pain HYDROCODONE-ACETAMINOPHEN 51649942320 Active Alina Castaneda MD PhD Active TERESE CONTOUR TEST STRP monitor blood sugars 3x/day GLUCOSE BLOOD 30829855623 No Longer Active Alina Castaneda MD PhD Active EQL TRUETEST TEST STRP Test blood sugar TID GLUCOSE BLOOD 12636546372 No Longer Active Alina Castaneda MD PhD Active FLUTICASONE PROPIONATE 50 MCG/ACT SUSP 2 sprays each nostril qDay x 30 days FLUTICASONE PROPIONATE 64738222031 No Longer Active Alina Castaneda MD PhD Active IBUPROFEN 200 MG TABS 1 Q 6 hr. PRN IBUPROFEN 21832614194 No Longer Active Alina Castaneda MD PhD Active NIACIN ER 500 MG CR-TABS 4 qHS (for triglycerides) NIACIN 66554606647 No Longer Active Alina Castaneda MD PhD Active ALFUZOSIN HCL ER 10 MG [id number] 1 tablet daily ALFUZOSIN HCL 01405187873 Active Vanessa Hickey MD Active CLONAZEPAM 1 MG TABS 1 pill by mouth three times daily CLONAZEPAM 07908547884 Active Alina Castaneda MD PhD Active LOVAZA 1 GM CAPS 4 daily (for triglycerides) AVTWO-7-OMKU ETHYL ESTERS 24258924304 Active Mao Rodriguez MD Active SAPHRIS 5 MG SUBL by mouth twice a day ASENAPINE MALEATE 65368973061 No Longer Active Maljohn Ziglari ASSISTANT CHIEF ENGINEER Active ACETAMINOPHEN 500 MG TABS 2 Q 6 hr. PRN ACETAMINOPHEN 77635651648 No Longer Active Maliheh Ziglari ASSISTANT CHIEF ENGINEER Active ORPHENADRINE CITRATE ER 100 MG [id number] 1 every 12 hr. as needed ORPHENADRINE CITRATE 48513425541 No Longer Active Alina Castaneda MD PhD Active NIACIN CR 500 MG CR-TABS 2 qHS NIACIN 44937782254 No Longer Active Alina Castaneda MD PhD Active AMOXICILLIN 500 MG CAPS 2 po BID x 10 days AMOXICILLIN 72389797559 No Longer Active Alina Castaneda MD PhD Active HYDROCODONE-ACETAMINOPHEN 7.5-325 MG TABS 1 four times a day as needed for pain HYDROCODONE-ACETAMINOPHEN 22231250677 No Longer Active Alina Castaneda MD PhD Active METFORMIN HCL ER 500 MG [id number] Take three tablets by mouth everyday METFORMIN HCL 52206447696 Active Marvel Charles ASSISTANT CHIEF ENGINEER Active DOXEPIN HCL 10 MG CAPS Take 1 tablet by mouth daily DOXEPIN HCL 19060681676 No Longer Active Salina Han [facility] Active NAVANE 10 MG CAPS 1/2 tablet twice a day THIOTHIXENE No Longer Active Salina Han [facility] Active CYCLOBENZAPRINE HCL 10 MG TABS 1/2 tablet by mouth every 8 hours as needed for muscle spasms CYCLOBENZAPRINE HCL 91970940665 No Longer Active Alina Castaneda MD PhD Active BACTROBAN 2 % CREAM apply to ear and nose twice daily MUPIROCIN CALCIUM 54224909232 No Longer Active Alina Castaneda MD PhD Active HYDROCODONE-ACETAMINOPHEN 5-325 MG TABS take one tablet by mouth every four hours as needed for pain HYDROCODONE-ACETAMINOPHEN 82948007954 No Longer Active Alina Castaneda MD PhD Active ZOLPIDEM TARTRATE 10 MG TABS take at bedtime ZOLPIDEM TARTRATE 44980147825 Active Alina Castaneda MD PhD Active ZYPREXA 5 MG TABS take one tablet by mouth every evening OLANZAPINE 12883701356 No Longer Active Alina Castaneda MD PhD Active ALBUTEROL SULFATE 0.083 % NEBU SOLN one vial per nebulizer TID and PRN cough/ soa ALBUTEROL SULFATE 93592350684 No Longer Active Alina Castaneda MD PhD Active GUAIFENESIN 600 MG [id number]-ITR 1 tablet by mouth twice daily if needed for cough GUAIFENESIN 05122535536 No Longer Active Marvel MARROQUIN Active AZITHROMYCIN 500 MG SOLR 1 po q day AZITHROMYCIN 83026239116 No Longer Active Alina Castaneda MD PhD Active METOPROLOL SUCCINATE 100 MG [id number]-BTF 1 by mouth daily for blood pressure METOPROLOL SUCCINATE 42658649615 Active Alina Castaneda MD PhD Active PROMETHAZINE-CODEINE 6.25-10 MG/5ML SYRP 1 tsp po q 6 hours prn cough PROMETHAZINE-CODEINE 51896442640 No Longer Active Alina Castaneda MD PhD Active CEFDINIR 300 MG CAPS by mouth twice a day CEFDINIR 02867725070 No Longer Active Alina Castaneda MD PhD Active METFORMIN HCL 500 MG QT50K-MYE Take 3 tablets by mouth everyday METFORMIN HCL 58995252234 No Longer Active Alina Castaneda MD PhD Active LEVEMIR 100 UNIT/ML SOLN 90 units SQ qHS INSULIN DETEMIR 81656169587 No Longer Active Marvel MARROQUIN Active TOPROL XL 100 MG [id number] 1 @ HS METOPROLOL SUCCINATE 57213423041 No Longer Active Marvel MARROQUIN Active ALLOPURINOL 300 MG TABS Take one by mouth daily ALLOPURINOL 02867595200 Active Alina Castaneda MD PhD Active ZYPREXA 10 MG TABS Take one by mouth daily OLANZAPINE 43485410562 No Longer Active Alina Castaneda MD PhD Active NOVOLOG 100 UNIT/ML SOLN 40 units with every meal INSULIN ASPART 25369305611 No Longer Active Alina Castaneda MD PhD Active VERAPAMIL HCL CR 120 MG TAB CR 1 qPM VERAPAMIL HCL 15858946638 No Longer Active Salina Han RMA Active ZYPREXA 15 MG TABS Take 1 tablet by mouth daily OLANZAPINE 26506209476 No Longer Active Mavrel Mackenzieanca MARROQUIN Active LISINOPRIL 20 MG TABS 1 BID LISINOPRIL 56380479478 Active Alina Castaneda MD PhD Active ALBUTEROL SULFATE (2.5 MG/3ML) 0.083% NEBU 1 neb tid and prn cough ALBUTEROL SULFATE 33678447275 No Longer Active Alina Castaneda MD PhD Active FLUVOXAMINE MALEATE 100 MG TABS Take one (1) tablet by mouth am, 1/2 at noon, 1 pm FLUVOXAMINE MALEATE 12359733957 Active Alina Castaneda MD PhD Active TRAVATAN Z 0.004 % SOLN 1 gtt each eye daily TRAVOPROST 08262713604 Active CRYSTAL Suarez Active LANTUS 100 UNIT/ML SOLN 60 units sq q hs INSULIN GLARGINE 04718140001 No Longer Active CRYSTAL Suarez Active ALBUTEROL SULFATE (2.5 MG/3ML) 0.083% NEBU 1 neb tid and prn cough ALBUTEROL SULFATE (2.5 MG/3ML) 0.083% NEBU 236674 ALBUTEROL SULFATE Inactive ZYPREXA 15 MG TABS Take 1 tablet by mouth daily ZYPREXA 15 MG TABS 600072 OLANZAPINE Inactive VERAPAMIL HCL CR 120 MG TAB CR 1 qPM VERAPAMIL HCL CR 120 MG TAB CR VERAPAMIL HCL Inactive ZYPREXA 10 MG TABS Take one by mouth daily ZYPREXA 10 MG TABS 809234 OLANZAPINE Inactive TOPROL XL 100 MG [id number] 1 @ HS TOPROL XL 100 MG OR57Z-JXV METOPROLOL SUCCINATE Inactive LEVEMIR 100 UNIT/ML SOLN 90 units SQ qHS LEVEMIR 100 UNIT/ML SOLN INSULIN DETEMIR Inactive PROMETHAZINE-CODEINE 6.25-10 MG/5ML SYRP 1 tsp po q 6 hours prn cough PROMETHAZINE-CODEINE 6.25-10 MG/5ML SYRP 906964 PROMETHAZINE- CODEINE Inactive GUAIFENESIN 600 MG [id number]-COJ 1 tablet by mouth twice daily if needed for cough GUAIFENESIN 600 MG [id number] GUAIFENESIN Inactive ALBUTEROL SULFATE 0.083 % NEBU SOLN one vial per nebulizer TID and PRN cough/ soa ALBUTEROL SULFATE 0.083 % NEBU SOLN 014689 ALBUTEROL SULFATE Inactive ZYPREXA 5 MG TABS take one tablet by mouth every evening ZYPREXA 5 MG TABS 661322 OLANZAPINE Inactive HYDROCODONE-ACETAMINOPHEN 5-325 MG TABS take one tablet by mouth every four hours as needed for pain HYDROCODONE-ACETAMINOPHEN 5-325 MG TABS 078616 HYDROCODONE-ACETAMINOPHEN Inactive BACTROBAN 2 % CREAM apply to ear and nose twice daily BACTROBAN 2 % CREAM 420749 MUPIROCIN CALCIUM Inactive CYCLOBENZAPRINE HCL 10 MG TABS 1/2 tablet by mouth every 8 hours as needed for muscle spasms CYCLOBENZAPRINE HCL 10 MG TABS 982031 CYCLOBENZAPRINE HCL Inactive NAVANE 10 MG CAPS 1/2 tablet twice a day NAVANE 10 MG CAPS THIOTHIXENE Inactive DOXEPIN HCL 10 MG CAPS Take 1 tablet by mouth daily DOXEPIN HCL 10 MG CAPS 8614995 DOXEPIN HCL Inactive HYDROCODONE-ACETAMINOPHEN 7.5-325 MG TABS 1 four times a day as needed for pain HYDROCODONE-ACETAMINOPHEN 7.5-325 MG TABS 546540 HYDROCODONE-ACETAMINOPHEN Inactive NIACIN CR 500 MG CR-TABS 2 qHS NIACIN CR 500 MG CR- TABS NIACIN Inactive ORPHENADRINE CITRATE ER 100 MG [id number] 1 every 12 hr. as needed ORPHENADRINE CITRATE ER 100 MG [id number]-BYQ ORPHENADRINE CITRATE Inactive ACETAMINOPHEN 500 MG TABS 2 Q 6 hr. PRN ACETAMINOPHEN 500 MG TABS 790782 ACETAMINOPHEN Inactive SAPHRIS 5 MG SUBL by mouth twice a day SAPHRIS 5 MG SUBL ASENAPINE MALEATE Inactive NIACIN ER 500 MG CR-TABS 4 qHS (for triglycerides) NIACIN ER 500 MG CR-TABS NIACIN Inactive IBUPROFEN 200 MG TABS 1 Q 6 hr. PRN IBUPROFEN 200 MG TABS 574665 IBUPROFEN Inactive FLUTICASONE PROPIONATE 50 MCG/ACT SUSP 2 sprays each nostril qDay x 30 days FLUTICASONE PROPIONATE 50 MCG/ACT SUSP 839019 FLUTICASONE PROPIONATE Inactive EQL TRUETEST TEST STRP Test blood sugar TID EQL TRUETEST TEST STRP GLUCOSE BLOOD Inactive TERESE CONTOUR TEST STRP monitor blood sugars 3x/day TERESE CONTOUR TEST STRP GLUCOSE BLOOD Inactive DETROL LA 4 MG [id number] Take 1 tablet by mouth daily DETROL LA 4 MG [id number] TOLTERODINE TARTRATE Inactive ZYPREXA 7.5 MG TABS 1 at HS ZYPREXA 7.5 MG TABS 040019 OLANZAPINE Inactive THIOTHIXENE 5 MG CAPS by mouth twice a day THIOTHIXENE 5 MG CAPS 077368 THIOTHIXENE Inactive UROXATRAL 10 MG [id number] Take 1 tablet by mouth daily UROXATRAL 10 MG [id number] ALFUZOSIN HCL Inactive ACYCLOVIR 400 MG ORAL TABS 1 pill three times daily x 5 days, for cold sore outbreak ACYCLOVIR 400 MG ORAL TABS 979731 ACYCLOVIR Inactive TRUETEST TEST STRP check sugars 4x/day TRUETEST TEST STRP GLUCOSE BLOOD Inactive HUMALOG 100 UNIT/ML SOLN Take 20 units with breakfast, 10u with lunch and suppetr. HUMALOG 100 UNIT/ML SOLN INSULIN LISPRO ( HUMAN) Inactive CYCLOBENZAPRINE HCL 10 MG TABS 1 tablet by mouth three times daily, scheduled CYCLOBENZAPRINE HCL 10 MG TABS 748398 CYCLOBENZAPRINE HCL Inactive ACCU-CHEK ROSA INVITR STRP use strips with device to check blood sugars 3 times daily ACCU-CHEK ROSA INVITR STRP GLUCOSE BLOOD Inactive ACCU-CHEK ROSA UZMA Use device to check blood sugars ACCU-CHEK ROSA UZMA BLOOD GLUCOSE MONITORING SUPPL Inactive CEFDINIR 300 MG CAPS by mouth twice a day CEFDINIR 300 MG CAPS 781799 CEFDINIR Inactive AZITHROMYCIN 500 MG SOLR 1 po q day AZITHROMYCIN 500 MG SOLR 873247 AZITHROMYCIN Inactive AMOXICILLIN 500 MG CAPS 2 po BID x 10 days AMOXICILLIN 500 MG CAPS 487401 AMOXICILLIN Inactive PENICILLIN V POTASSIUM 500 MG TABS 1 pill by mouth three times daily PENICILLIN V POTASSIUM 500 MG TABS 328070 PENICILLIN V POTASSIUM Inactive Immunizations Vaccine Administration [...] Fluvirin, Fluarix, Agriflu(>=18 yo)) Fluzone (>3 yrs.) [[id number]] Influenza, seasonal, injectable pneumococcal immunization administered Pneumovax [...] HGBA1C - Chemistry sodium, serum 131 mmol/L 312-100 0063/12/30 potassium, serum 5.0 mmol/L 3.5-5.2 chloride, serum 95 mmol/L 98-107 carbon dioxide, venous blood 26.7 mmol/L 21.0-32.0 blood glucose 112 mg/dL 65-110 calcium, serum 9.2 mg/dL 8.5-10.1 urea nitrogen, blood 12 mg/dL 7-18 creatinine, serum 1.10 mg/dL 0.60-1.30 hemoglobin A1C, blood, as % of total hemoglobin 5.8 % 4.3-6.0 sodium, serum 130 mmol/L 804-148 1773/06/09 potassium, serum 4.0 mmol/L 3.5-5.2 chloride, serum 92 mmol/L 98-107 carbon dioxide, venous blood 22.1 mmol/L 21.0-32.0 blood glucose 60 mg/dL 65-110 calcium, serum 9.5 mg/dL 8.5-10.1 urea nitrogen, blood 14 mg/dL 7-18 creatinine, serum 1.30 mg/dL 0.60-1.30 hemoglobin A1C, blood, as % of total hemoglobin 6.0 % 4.3-6.0 Lab Report: Basic Metabolic Panel, HGBA1C, MICROALBUMIN - Chemistry sodium, serum 137 mmol/L 862-715 2394/05/19 potassium, serum 5.2 mmol/L 3.5-5.2 chloride, serum [...] Panel - Chemistry sodium, serum 127 mmol/L 966-464 8531/10/27 potassium, serum 4.1 mmol/L 3.5-5.2 chloride, serum [...] mg/dL Encounters Code Encounter Date Provider Facility CPT-32132 Level 3 Est. Patient 09:26:40 CDT Maliheh Ziglari [facility]-98184 Level 3 Est. Patient 12:36:43 CDT Vanessa Hickey MD [facility]-01403 Level 3 Est. Patient 12:57:49 CDT Vanessa Hickey MD [facility]-55212 Level 3 Est. Patient 00:28:25 CDT Alina Castaneda MD [facility]-85815 Level 2 Est. Patient 12:52:14 CDT Alina Castaneda MD [facility]-56215 Level 3 Est. Patient 11:51:18 SENIOR COMMISSARY AGENT Alina Castaneda MD [facility]-47959 Level 3 Est. Patient 10:09:22 SENIOR COMMISSARY AGENT Alina Castaneda MD [facility]-98523 Level 3 Est. Patient 14:36:26 SENIOR COMMISSARY AGENT Marvel Charles [facility]-36504 Level 3 Est. Patient 13:34:47 SENIOR COMMISSARY AGENT Alina Castaneda MD [facility]-60830 Level 3 Est. Patient 19:52:08 SENIOR COMMISSARY AGENT Alina Castaneda MD [facility]-77556 Level 3 Est. Patient 10:01:51 SENIOR COMMISSARY AGENT Marvel Charles [facility]-07538 Level 3 Est. Patient 21:54:06 CDT Vanessa Hickey MD [facility]-76255 Level 3 Est. Patient 08:54:46 CDT Alina Castaneda MD [facility]-08836 Level 3 Est. Patient 09:32:11 CDT Marvel Charles [facility]-29278 Level 3 Est. Patient 12:02:49 CDT Alina Castaneda MD [facility]15910 Level 3 Est. Patient 19:17:33 CDT Alina Castaneda MD [facility]-21817 Level 3 Est. Patient 13:19:10 CDT Marvel Gurdeepajayestela [facility]-80646 Level 3 Est. Patient 08:20:05 CDT Alina Castaneda MD [facility]-18276 Level 3 Est. Patient 15:17:18 CDT Alina Castaneda MD [facility]-31601 Level 3 Est. Patient 14:25:36 SENIOR COMMISSARY AGENT Marvel Charles [facility]-13102 Level 3 Est. Patient 10:09:15 SENIOR COMMISSARY AGENT [facility]13132 Level 3 Est. Patient 21:28:43 CDT Alina Castaneda MD [facility]-50165 Level 3 Est. Patient 15:20:11 [facility]T [facility]-43270 Level 4 Est. Patient 19:08:12 CDT Alina Castaneda MD [facility]-61816 Level 3 Est. Patient 15:06:39 CDT Marvel Araceli [facility]-51773 Level 4 Est. Patient 17:48:15 CDT Alina Castaneda MD [facility]-15582 Level 3 Est. Patient 14:53:49 CDT Alina Castaneda MD [facility]-19502 Level 3 Est. Patient 09:35:16 CDT Alina Castaneda MD [facility]-89014 Level 3 Est. Patient 12:23:22 CDT Alina Castaneda MD [facility]84956 Level 3 Est. Patient 16:19:15 CDT Alina Castaneda MD [facility]-21216 Level 3 Est. Patient 21:39:56 SENIOR COMMISSARY AGENT Alina Castaneda MD [facility]-06261 Level 4 Est. Patient 14:12:56 SENIOR COMMISSARY AGENT Alina Castaneda MD [facility]-79516 Level 2 Est. Patient 15:34:57 SENIOR COMMISSARY AGENT Alina Castaneda MD [facility]-04783 Level 3 Est. Patient 12:17:04 SENIOR COMMISSARY AGENT Alina Castaneda MD [facility]41551 Level 3 Est. Patient 09:18:18 SENIOR COMMISSARY AGENT [facility]-05828 Level 2 Est. Patient 21:50:24 CDT Alina Castaneda MD [facility]-98630 Level 3 Est. Patient 09:17:28 CDT Marvel Charles [facility]-89813 Level 4 Est. Patient 18:54:02 CDT Alina Castaneda MD [facility]-07506 Level 3 Est. Patient 10:47:10 CDT Alina Castaneda MD [facility]-98193 Level 3 Est. Patient 09:22:20 CDT Marvel Charles [facility]-93998 Level 3 Est. Patient 16:39:43 CDT Marvel Charles [facility]-79167 Level 3 Est. Patient 16:05:16 CDT Alina Castaneda MD [facility]-83283 Level 3 Est. Patient 00:29:15 CDT Alina Castaneda MD [facility]89945 Level 3 Est. Patient 10:49:22 SENIOR COMMISSARY AGENT Marvel Charles [facility] CPT-27962 Level 3 Est. Patient 21:30:19 SENIOR COMMISSARY AGENT Alina Castaneda MD [facility] CPT-34733 Level 4 Est. Patient 17:04:11 SENIOR COMMISSARY AGENT [place] [facility] CPT-81909 Level 3 Est. Patient 15:34:11 SENIOR COMMISSARY AGENT Marvel Thurstonestela [facility] CPT-48725 Level 2 Est. Patient 12:51:58 SENIOR COMMISSARY AGENT Alina Castaneda MD [facility] CPT-88385 Level 3 Est. Patient 13:20:01 SENIOR COMMISSARY AGENT Alina Castaneda MD [facility] CPT-96396 Level 3 Est. Patient 09:23:35 CDT Alina Castaneda MD [facility] Procedures Code Procedure Name Date Entry Date Standard Description CPT-26467 Bladder Scan 12:36:44 CDT CPT-68039 Bladder Scan 21:54:06 CDT CPT-G0008 Administration of Influenza Virus Vaccine 13:05:26 CDT CPT-05335 Fluzone Quadrivalent Intramuscular Suspension 0.5 ML 13: 05:26 CDT CPT-62806 Administration single or combination vaccine inc oral 11 :49:51 CDT CPT-30838 Pneumovax 11:49:51 CDT CPT-38022 Ribs unilateral 2V 12:37:22 SENIOR COMMISSARY AGENT CPT-36486 Chest 2V Frontal and Lat 17:15:26 CDT CPT-26727 Abx/Therapy Injection 18:54:02 CDT CPT-J0696 Rocephin 1000 mg (Ceftriaxone) 16:00:32 CDT CPT-54428 Chest 2V Frontal and Lat 15:26:45 CDT CPT-05787 Chest 2V Frontal and Lat 10:23:27 CDT CPT-15346 Venipuncture Draw Fee 10:11:00 CDT CPT-49837 Administration single or combination vaccine inc oral 11 :56:38 CDT CPT-67475 Influenza split virus > age 3 11:56:38 CDT CPT-36932 Venipuncture Draw Fee 08:49:54 SENIOR COMMISSARY AGENT CPT-94696 EKG Trac and Interp 17:54:19 SENIOR COMMISSARY AGENT
--- OUTSIDE RECORDS SUMMARY | 2018-07-02 15:57 | XMS REPORT | Clinical Summary ---
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 Active Alina Csataneda MD PhD Recurrent isolated sleep paralysis SPECIAL [...] unspecified Benign paroxysmal positional vertigo 386.11 Active Mimacecily Erazo APRN Benign paroxysmal positional vertigo Vertigo, benign paroxysmal position 386.11 Inactive Mima Kacey [place] Benign paroxysmal positional vertigo High-risk sexual behavior V69.2 Active Alina Castaneda MD PhD High-risk sexual behavior Erectile dysfunction 302.72 Active Alina Castaneda MD PhD Psychosexual dysfunction with inhibited sexual excitement DIABETES, TYPE 2 ICD-250.00 Inactive Alina Castaneda [...] SIDED ICD-786.50 Inactive Alina Castaneda MD PhD FATIGUE ICD-780.79 Inactive Alina Castaneda MD PhD ABNORMAL HEART RHYTHMS ICD-427.9 Inactive Alina Castaneda MD PhD DIABETIC HYPOGLYCEMIA, TYPE II ICD-250.80 Inactive Marvel 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 Inactive Alina Castaneda MD PhD SPECIAL SCREENING FOR MALIGNANT NEOPLASM OF PROSTATE ICD-V76.44 Roro Castaneda MD PhD SKIN LESION ICD-709.9 Inactive Alina Castaneda MD PhD Dizziness ICD-780.4 Inactive Alina Castaneda MD PhD Confusion ICD-298.9 Roro Castaneda MD PhD Open wound of tongue and floor of mouth, uncomplicated ICD-873.64 Roro Castaneda MD PhD Chest pain, atypical ICD-786.59 Roro Castaneda MD PhD Chest pain, atypical ICD-786.59 Roro Castaneda MD PhD SINUSITIS, ACUTE ICD-461.9 Roro Castaneda MD PhD Hypoglycemia ICD-251.2 Roro Castaneda MD PhD Medication List Medication Instructions Start Date Stop Date Generic Name NDC Status Provider Patient Instruction HUMALOG 100 UNIT/ML SC SOLN 20u am , 10u lunch and supper INSULIN LISPRO (HUMAN) 12496207039 Active Marvel Araceli MARROQIUN Active LATUDA 120 MG ORAL TABS 1 pill by mouth nightly LURASIDONE HCL 73882963315 Active Alina Castaneda MD PhD Active COLACE 100 MG CAPS 1 pill by mouth twice daily, for constipation DOCUSATE SODIUM 71400568336 Active Alina Castaneda MD PhD Active TRUETEST TEST STRP check blood sugars 3x/day GLUCOSE BLOOD 75111730838 Active Malnivia 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 SHAKER SCREEN OPERATOR Active ACCU-CHEK ROSA UZMA Use device to check blood sugars BLOOD GLUCOSE MONITORING SUPPL 91794254278 No Longer Active Marvel 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 SHAKER SCREEN OPERATOR Active ACCU-CHEK ROSA INVITR STRP use strips with device to check blood sugars 3 times daily GLUCOSE BLOOD 14008886402 No Longer Active Brooksnivia Araceli MENDOZAP Active VERAPAMIL HCL ER 180 MG ORAL CR-TABS 1 pill by mouth twice daily, for migraine prevention VERAPAMIL HCL 50462102375 Active Alina Castaneda MD PhD Active CYCLOBENZAPRINE HCL 10 MG TABS 1 tablet by mouth three times daily, scheduled CYCLOBENZAPRINE HCL 65996203791 No Longer Active Alina Castaneda MD PhD Active HUMALOG 100 UNIT/ML SOLN Take 20 units with breakfast, 10u with lunch and suppetr. INSULIN LISPRO (HUMAN) 86151889258 No Longer Active Alina Castaneda MD PhD Active TRUETEST TEST STRP check sugars 4x/day GLUCOSE BLOOD 97157877901 No Longer Active Alina Castaneda MD PhD Active MORPHINE SULFATE 30 MG TABS 1 pill by mouth twice daily, for pain MORPHINE SULFATE 83492832951 Active Alina Castaneda MD PhD Active ACYCLOVIR 400 MG ORAL TABS 1 pill three times daily x 5 days, for cold sore outbreak ACYCLOVIR 90237333969 No Longer Active Alina Castaneda MD PhD Active PENICILLIN V POTASSIUM 500 MG TABS 1 pill by mouth three times daily PENICILLIN V POTASSIUM 31589533919 No Longer Active Alina Castaneda MD PhD Active UROXATRAL 10 MG [id number] Take 1 tablet by mouth daily ALFUZOSIN HCL 88762282258 No Longer Active Alina Castaneda MD PhD Active THIOTHIXENE 5 MG CAPS by mouth twice a day THIOTHIXENE 77032007464 No Longer Active Alina Castaneda MD PhD Active ZYPREXA 7.5 MG TABS 1 at HS OLANZAPINE 09217054645 No Longer Active Alina Castaneda MD PhD Active LEVEMIR 100 UNIT/ML SOLN Take 70 u at 7-8pm INSULIN DETEMIR 52732288035 Active Maliheh Ziglari SHAKER SCREEN OPERATOR Active BD INSULIN SYRINGE 28G X 1/2" 1 ML MISC 1 four times per day INSULIN SYRINGE-NEEDLE U-100 62048093657 Active Mallashondaeh Ziglari SHAKER SCREEN OPERATOR Active TOLTERODINE TARTRATE 2 MG TABS 1 pill twice daily, for bladder TOLTERODINE TARTRATE 75375831190 Active Alina Castaneda MD PhD Active DETROL LA 4 MG [id number] Take 1 tablet by mouth daily TOLTERODINE TARTRATE 07655505342 No Longer Active Alina Castaneda MD PhD Active HYDROCODONE-ACETAMINOPHEN 5-325 MG TABS 2 tabs by mouth three times daily as needed for pain HYDROCODONE-ACETAMINOPHEN 88506729666 Active Alina Castaneda MD PhD Active TERESE CONTOUR TEST STRP monitor blood sugars 3x/day GLUCOSE BLOOD 73808841808 No Longer Active Alina Castaneda MD PhD Active EQL TRUETEST TEST STRP Test blood sugar TID GLUCOSE BLOOD 79583076035 No Longer Active Alina Castaneda MD PhD Active FLUTICASONE PROPIONATE 50 MCG/ACT SUSP 2 sprays each nostril qDay x 30 days FLUTICASONE PROPIONATE 31988338878 No Longer Active Alina Castaneda MD PhD Active IBUPROFEN 200 MG TABS 1 Q 6 hr. PRN IBUPROFEN 83009632191 No Longer Active Alina Castaneda MD PhD Active NIACIN ER 500 MG CR-TABS 4 qHS (for triglycerides) NIACIN 85751913098 No Longer Active Alina Castaneda MD PhD Active ALFUZOSIN HCL ER 10 MG [id number] 1 tablet daily ALFUZOSIN HCL 97051318630 Active Vanessa Hickey MD Active CLONAZEPAM 1 MG TABS 1 pill by mouth three times daily CLONAZEPAM 77937918029 Active Alina Castaneda MD PhD Active LOVAZA 1 GM CAPS 4 daily (for triglycerides) [id number] ETHYL ESTERS 53515613069 Active Alina Castaneda MD PhD Active SAPHRIS 5 MG SUBL by mouth twice a day ASENAPINE MALEATE 01510564539 No Longer Active Marvel MARROQUIN Active ACETAMINOPHEN 500 MG TABS 2 Q 6 hr. PRN ACETAMINOPHEN 66166410835 No Longer Active Marvel MARROQUIN Active ORPHENADRINE CITRATE ER 100 MG [id number] 1 every 12 hr. as needed ORPHENADRINE CITRATE 22954291279 No Longer Active Alina Castaneda MD PhD Active NIACIN CR 500 MG CR-TABS 2 qHS NIACIN 54312624660 No Longer Active Alina Castaneda MD PhD Active AMOXICILLIN 500 MG CAPS 2 po BID x 10 days AMOXICILLIN 61919367550 No Longer Active Alina Castaneda MD PhD Active HYDROCODONE-ACETAMINOPHEN 7.5-325 MG TABS 1 four times a day as needed for pain HYDROCODONE-ACETAMINOPHEN 83123996418 No Longer Active Alina Castaneda MD PhD Active METFORMIN HCL ER 500 MG [id number]-GOX Take three tablets by mouth everyday METFORMIN HCL 59374236440 Active Marvel Mackenzieglestela SHAKER SCREEN OPERATOR Active DOXEPIN HCL 10 MG CAPS Take 1 tablet by mouth daily DOXEPIN HCL 60363715222 No Longer Active [facility] Active NAVANE 10 MG CAPS 1/2 tablet twice a day THIOTHIXENE No Longer Active Salina Han A Active CYCLOBENZAPRINE HCL 10 MG TABS 1/2 tablet by mouth every 8 hours as needed for muscle spasms CYCLOBENZAPRINE HCL 35354440862 No Longer Active Alina Castaneda MD PhD Active BACTROBAN 2 % CREAM apply to ear and nose twice daily MUPIROCIN CALCIUM 41481435332 No Longer Active Alina Castaneda MD PhD Active HYDROCODONE-ACETAMINOPHEN 5-325 MG TABS take one tablet by mouth every four hours as needed for pain HYDROCODONE-ACETAMINOPHEN 24190923207 No Longer Active Alina Castaneda MD PhD Active ZOLPIDEM TARTRATE 10 MG TABS take at bedtime ZOLPIDEM TARTRATE 96265088634 Active Alina Castaneda MD PhD Active ZYPREXA 5 MG TABS take one tablet by mouth every evening OLANZAPINE 17516326422 No Longer Active Alina Castaneda MD PhD Active ALBUTEROL SULFATE 0.083 % NEBU SOLN one vial per nebulizer TID and PRN cough/ soa ALBUTEROL SULFATE 04978961758 No Longer Active Alina Castaneda MD PhD Active GUAIFENESIN 600 MG [id number] 1 tablet by mouth twice daily if needed for cough GUAIFENESIN 84850878707 No Longer Active Marvel Charles [facility] Active AZITHROMYCIN 500 MG SOLR 1 po q day AZITHROMYCIN 71792279584 No Longer Active Alina Castaneda MD PhD Active METOPROLOL SUCCINATE 100 MG UV79F-LWF 1 by mouth daily for blood pressure METOPROLOL SUCCINATE 58192893635 Active Alina Castaneda MD PhD Active PROMETHAZINE-CODEINE 6.25-10 MG/5ML SYRP 1 tsp po q 6 hours prn cough PROMETHAZINE-CODEINE 66111255240 No Longer Active Alina Castaneda MD PhD Active CEFDINIR 300 MG CAPS by mouth twice a day CEFDINIR 60221271949 No Longer Active Alina Castaneda MD PhD Active METFORMIN HCL 500 MG DJ50F-MAZ Take 3 tablets by mouth everyday METFORMIN HCL 73223723412 No Longer Active Alina Castaneda MD PhD Active LEVEMIR 100 UNIT/ML SOLN 90 units SQ qHS INSULIN DETEMIR 76956849347 No Longer Active Marvel MARROQUIN Active TOPROL XL 100 MG EC37Z-MXZ 1 @ HS METOPROLOL SUCCINATE 49523895175 No Longer Active Marvel MARROQUIN Active ALLOPURINOL 300 MG TABS Take one by mouth daily ALLOPURINOL 50979379688 Active Alina Castaneda MD PhD Active ZYPREXA 10 MG TABS Take one by mouth daily OLANZAPINE 16578245676 No Longer Active Alina Castaneda MD PhD Active NOVOLOG 100 UNIT/ML SOLN 40 units with every meal INSULIN ASPART 66455628061 No Longer Active Alina Castaneda MD PhD Active VERAPAMIL HCL CR 120 MG TAB CR 1 qPM VERAPAMIL HCL 61059151952 No Longer Active Salina Han A Active ZYPREXA 15 MG TABS Take 1 tablet by mouth daily OLANZAPINE 49423914635 No Longer Active Marvel MARROQUIN Active LISINOPRIL 20 MG TABS 1 BID LISINOPRIL 12533096823 Active Alina Castaneda MD PhD Active ALBUTEROL SULFATE (2.5 MG/3ML) 0.083% NEBU 1 neb tid and prn cough ALBUTEROL SULFATE 28057630943 No Longer Active Alina Castaneda MD PhD Active FLUVOXAMINE MALEATE 100 MG TABS Take one (1) tablet by mouth am, 1/2 at noon, 1 pm FLUVOXAMINE MALEATE 36502459205 Active Alina Castaneda MD PhD Active TRAVATAN Z 0.004 % SOLN 1 gtt each eye daily TRAVOPROST 41277241305 Active CRYSTAL Suarez Active LANTUS 100 UNIT/ML SOLN 60 units sq q hs INSULIN GLARGINE 85246811319 No Longer Active CRYSTAL Suarez Active ALBUTEROL SULFATE (2.5 MG/3ML) 0.083% NEBU 1 neb tid and prn cough ALBUTEROL SULFATE (2.5 MG/3ML) 0.083% NEBU 993174 ALBUTEROL SULFATE Inactive ZYPREXA 15 MG TABS Take 1 tablet by mouth daily ZYPREXA 15 MG TABS 984616 OLANZAPINE Inactive VERAPAMIL HCL CR 120 MG TAB CR 1 qPM VERAPAMIL HCL CR 120 MG TAB CR VERAPAMIL HCL Inactive ZYPREXA 10 MG TABS Take one by mouth daily ZYPREXA 10 MG TABS 127896 OLANZAPINE Inactive TOPROL XL 100 MG [id number] 1 @ HS TOPROL XL 100 MG VB24R-DFE METOPROLOL SUCCINATE Inactive LEVEMIR 100 UNIT/ML SOLN 90 units SQ qHS LEVEMIR 100 UNIT/ML SOLN INSULIN DETEMIR Inactive PROMETHAZINE-CODEINE 6.25-10 MG/5ML SYRP 1 tsp po q 6 hours prn cough PROMETHAZINE-CODEINE 6.25-10 MG/5ML SYRP 714441 PROMETHAZINE- CODEINE Inactive GUAIFENESIN 600 MG AF19X-GXJ 1 tablet by mouth twice daily if needed for cough GUAIFENESIN 600 MG AK67F-LSC GUAIFENESIN Inactive ALBUTEROL SULFATE 0.083 % NEBU SOLN one vial per nebulizer TID and PRN cough/ soa ALBUTEROL SULFATE 0.083 % NEBU SOLN 423977 ALBUTEROL SULFATE Inactive ZYPREXA 5 MG TABS take one tablet by mouth every evening ZYPREXA 5 MG TABS 584547 OLANZAPINE Inactive HYDROCODONE-ACETAMINOPHEN 5-325 MG TABS take one tablet by mouth every four hours as needed for pain HYDROCODONE-ACETAMINOPHEN 5-325 MG TABS 196918 HYDROCODONE-ACETAMINOPHEN Inactive BACTROBAN 2 % CREAM apply to ear and nose twice daily BACTROBAN 2 % CREAM 674515 MUPIROCIN CALCIUM Inactive CYCLOBENZAPRINE HCL 10 MG TABS 1/2 tablet by mouth every 8 hours as needed for muscle spasms CYCLOBENZAPRINE HCL 10 MG TABS 283255 CYCLOBENZAPRINE HCL Inactive NAVANE 10 MG CAPS 1/2 tablet twice a day NAVANE 10 MG CAPS THIOTHIXENE Inactive DOXEPIN HCL 10 MG CAPS Take 1 tablet by mouth daily DOXEPIN HCL 10 MG CAPS 9351816 DOXEPIN HCL Inactive HYDROCODONE-ACETAMINOPHEN 7.5-325 MG TABS 1 four times a day as needed for pain HYDROCODONE-ACETAMINOPHEN 7.5-325 MG TABS 971824 HYDROCODONE-ACETAMINOPHEN Inactive NIACIN CR 500 MG CR-TABS 2 qHS NIACIN CR 500 MG CR- TABS NIACIN Inactive ORPHENADRINE CITRATE ER 100 MG ED54E-JSR 1 every 12 hr. as needed ORPHENADRINE CITRATE ER 100 MG RP75I-PAH ORPHENADRINE CITRATE Inactive ACETAMINOPHEN 500 MG TABS 2 Q 6 hr. PRN ACETAMINOPHEN 500 MG TABS 151726 ACETAMINOPHEN Inactive SAPHRIS 5 MG SUBL by mouth twice a day SAPHRIS 5 MG SUBL ASENAPINE MALEATE Inactive NIACIN ER 500 MG CR-TABS 4 qHS (for triglycerides) NIACIN ER 500 MG CR-TABS NIACIN Inactive IBUPROFEN 200 MG TABS 1 Q 6 hr. PRN IBUPROFEN 200 MG TABS 124617 IBUPROFEN Inactive FLUTICASONE PROPIONATE 50 MCG/ACT SUSP 2 sprays each nostril qDay x 30 days FLUTICASONE PROPIONATE 50 MCG/ACT SUSP 439300 FLUTICASONE PROPIONATE Inactive EQL TRUETEST TEST STRP Test blood sugar TID EQL TRUETEST TEST STRP GLUCOSE BLOOD Inactive TERESE CONTOUR TEST STRP monitor blood sugars 3x/day TERESE CONTOUR TEST STRP GLUCOSE BLOOD Inactive DETROL LA 4 MG [id number] Take 1 tablet by mouth daily DETROL LA 4 MG IF79S-ROS TOLTERODINE TARTRATE Inactive ZYPREXA 7.5 MG TABS 1 at HS ZYPREXA 7.5 MG TABS 412677 OLANZAPINE Inactive THIOTHIXENE 5 MG CAPS by mouth twice a day THIOTHIXENE 5 MG CAPS 081295 THIOTHIXENE Inactive UROXATRAL 10 MG IT80L-PSU Take 1 tablet by mouth daily UROXATRAL 10 MG ZY69B-ZCM ALFUZOSIN HCL Inactive ACYCLOVIR 400 MG ORAL TABS 1 pill three times daily x 5 days, for cold sore outbreak ACYCLOVIR 400 MG ORAL TABS 585023 ACYCLOVIR Inactive TRUETEST TEST STRP check sugars 4x/day TRUETEST TEST STRP GLUCOSE BLOOD Inactive HUMALOG 100 UNIT/ML SOLN Take 20 units with breakfast, 10u with lunch and suppetr. HUMALOG 100 UNIT/ML SOLN INSULIN LISPRO ( HUMAN) Inactive CYCLOBENZAPRINE HCL 10 MG TABS 1 tablet by mouth three times daily, scheduled CYCLOBENZAPRINE HCL 10 MG TABS 178935 CYCLOBENZAPRINE HCL Inactive ACCU-CHEK ROSA INVITR STRP use strips with device to check blood sugars 3 times daily ACCU-CHEK ROSA INVITR STRP GLUCOSE BLOOD Inactive ACCU-CHEK ROSA UZMA Use device to check blood sugars ACCU-CHEK ROSA UZMA BLOOD GLUCOSE MONITORING SUPPL Inactive CEFDINIR 300 MG CAPS by mouth twice a day CEFDINIR 300 MG CAPS 935290 CEFDINIR Inactive AZITHROMYCIN 500 MG SOLR 1 po q day AZITHROMYCIN 500 MG SOLR 083853 AZITHROMYCIN Inactive AMOXICILLIN 500 MG CAPS 2 po BID x 10 days AMOXICILLIN 500 MG CAPS 496508 AMOXICILLIN Inactive PENICILLIN V POTASSIUM 500 MG TABS 1 pill by mouth three times daily PENICILLIN V POTASSIUM 500 MG TABS 144931 PENICILLIN V POTASSIUM Inactive Immunizations Vaccine Administration [...] Fluvirin, Fluarix, Agriflu(>=18 yo)) Fluzone (>3 yrs.) [[id number]] Influenza, seasonal, injectable pneumococcal immunization administered Pneumovax [...] HGBA1C - Chemistry sodium, serum 131 mmol/L 314-906 7535/12/30 potassium, serum 5.0 mmol/L 3.5-5.2 chloride, serum 95 mmol/L 98-107 carbon dioxide, venous blood 26.7 mmol/L 21.0-32.0 blood glucose 112 mg/dL 65-110 calcium, serum 9.2 mg/dL 8.5-10.1 urea nitrogen, blood 12 mg/dL 7-18 creatinine, serum 1.10 mg/dL 0.60-1.30 hemoglobin A1C, blood, as % of total hemoglobin 5.8 % 4.3-6.0 Lab Report: Basic Metabolic Panel, HGBA1C, MICROALBUMIN - Chemistry sodium, serum 137 mmol/L 200-354 2247/05/19 potassium, serum 5.2 mmol/L 3.5-5.2 chloride, serum [...] microalbumin, urine 10 0-19 Lab Report: Chlamydia/GC APTIMA/01509, HIV-1/2 Agn/Dominga/89823, RPR (DX) W ... - Chemistry hepatitis B surface antigen NON-REACTIVE NON-REACTIVE Lab Report: Chlamydia/GC APTIMA/00707, HIV-1/2 Agn/Dominga/53165, RPR (DX) W ... - Lab chlamydia DNA probe NOT DETECTED NOT DETECTED Lab Report: Chlamydia/GC APTIMA/30446, HIV-1/2 Agn/Dominga/94392, RPR (DX) W ... - Microbiology Neisseria gonorrhoeae DNA probe NOT DETECTED NOT DETECTED Lab Report: Chlamydia/GC APTIMA/53324, HIV-1/2 Agn/Dominga/09138, RPR (DX) W ... - Serology rapid plasma reagin antibody titer NON-REACTIVE NON-REACTIVE Lab Report: Comp. Metabolic Panel - Chemistry sodium, serum 127 mmol/L 753-493 7645/10/27 potassium, serum 4.1 mmol/L 3.5-5.2 chloride, serum [...] CBC - Chemistry cholesterol, serum 131 mg/dL 739-039 3170/06/03 triglyceride, serum, fasting 383 mg/dL 30-200 HDL [...] mg/dL Encounters Code Encounter Date Provider Facility CPT-45781 Level 3 Est. Patient 09:34:56 CDT Alina Castaneda MD PhD [facility] CPT-87884 Level 3 Est. Patient 21:40:19 CDT Mima Erazo APRN [facility] CPT-35241 Level 3 Est. Patient 09:26:40 CDT Marvel MARROQUIN [facility] CPT-55872 Level 3 Est. Patient 12:36:43 CDT Vanessa Hickey MD [facility] CPT-18925 Level 3 Est. Patient 12:57:49 CDT Vanessa Hickey MD [facility] CPT-68074 Level 3 Est. Patient 00:28:25 CDT Alina Castaneda MD [facility] CPT-38792 Level 2 Est. Patient 12:52:14 CDT Alina Castaneda MD [facility] CPT-11379 Level 3 Est. Patient 11:51:18 RAG SHREDDER Alina Castaneda MD [facility] CPT-06679 Level 3 Est. Patient 10:09:22 RAG SHREDDER Alina Castaneda MD [facility] CPT-35170 Level 3 Est. Patient 14:36:26 RAG SHREDDER Marvel Gurdeepajayestela [facility]-57743 Level 3 Est. Patient 13:34:47 RAG SHREDDER Alina Castaneda MD [facility]16302 Level 3 Est. Patient 19:52:08 RAG SHREDDER Alina Castaneda MD [facility]93111 Level 3 Est. Patient 10:01:51 RAG SHREDDER Marvel Charles [facility]64026 Level 3 Est. Patient 21:54:06 CDT Vanessa Hickey MD [facility]95488 Level 3 Est. Patient 08:54:46 CDT Alina Castaneda MD [facility]60056 Level 3 Est. Patient 09:32:11 CDT Marvel Gurdeepajayestela [facility]56480 Level 3 Est. Patient 12:02:49 CDT Alina Castaneda MD [facility]15338 Level 3 Est. Patient 19:17:33 CDT Alina Castaneda MD [facility]43236 Level 3 Est. Patient 13:19:10 CDT Brooksjohn Charles [facility]-96942 Level 3 Est. Patient 08:20:05 CDT Alina Castaneda MD [facility]94902 Level 3 Est. Patient 15:17:18 CDT Alina Castaneda MD [facility]91412 Level 3 Est. Patient 14:25:36 RAG SHREDDER Marvel Araceli [facility]05746 Level 3 Est. Patient 10:09:15 RAG SHREDDER Marvel Araceli [facility]22640 Level 3 Est. Patient 21:28:43 CDT Alina Castaneda MD [facility]-92241 Level 3 Est. Patient 15:20:11 CDT Marvel Charles [facility]-94447 Level 4 Est. Patient 19:08:12 CDT Alina Castaneda MD [facility]-51105 Level 3 Est. Patient 15:06:39 CDT Marvel Charles [facility]-34238 Level 4 Est. Patient 17:48:15 CDT Alina Castaneda MD [facility]-00225 Level 3 Est. Patient 14:53:49 CDT Alina Castaneda MD [facility]-86538 Level 3 Est. Patient 09:35:16 CDT Alina Castaneda MD [facility]-20465 Level 3 Est. Patient 12:23:22 CDT Alina Castaneda MD [facility]-96443 Level 3 Est. Patient 16:19:15 CDT Alina Castaneda MD [facility]-05479 Level 3 Est. Patient 21:39:56 RAG SHREDDER Alina Castaneda MD [facility]-09923 Level 4 Est. Patient 14:12:56 RAG SHREDDER Alina Castaneda MD [facility]-12913 Level 2 Est. Patient 15:34:57 RAG SHREDDER Alina Castaneda MD [facility]-48788 Level 3 Est. Patient 12:17:04 RAG SHREDDER Alina Castaneda MD [facility]-48489 Level 3 Est. Patient 09:18:18 RAG SHREDDER Marvel Charles [facility]-05661 Level 2 Est. Patient 21:50:24 CDT Alina Castaneda MD [facility]-50369 Level 3 Est. Patient 09:17:28 CDT Marvel Charles [facility]-86284 Level 4 Est. Patient 18:54:02 CDT Alina Castaneda MD [facility]57498 Level 3 Est. Patient 10:47:10 CDT Alina Castaneda MD [facility]61316 Level 3 Est. Patient 09:22:20 CDT Marvel Charles [facility]-72855 Level 3 Est. Patient 16:39:43 CDT Brooksnivia Charles [facility]-77358 Level 3 Est. Patient 16:05:16 CDT Alina Castaneda MD [facility]55057 Level 3 Est. Patient 00:29:15 CDT Alina Castaneda MD [facility]75241 Level 3 Est. Patient 10:49:22 RAG SHREDDER Marvel Charles [facility]-83497 Level 3 Est. Patient 21:30:19 RAG SHREDDER Alina Castaneda MD [facility]-27777 Level 4 Est. Patient 17:04:11 RAG SHREDDER Marvel Charles [facility]-57140 Level 3 Est. Patient 15:34:11 RAG SHREDDER Marvel Charles [facility]-27893 Level 2 Est. Patient 12:51:58 RAG SHREDDER Alina Castaneda MD [facility]45260 Level 3 Est. Patient 13:20:01 RAG SHREDDER Alina Castaneda MD [facility]99183 Level 3 Est. Patient 09:23:35 CDT Alina Castaneda MD PhD [facility] Procedures Code Procedure Name Date Entry Date Standard Description CPT-97208 Bladder Scan 12:36:44 CDT CPT-26773 Bladder Scan 21:54:06 CDT CPT-G0008 Administration of Influenza Virus Vaccine 13:05:26 CDT CPT-75303 Fluzone Quadrivalent Intramuscular Suspension 0.5 ML 13: 05:26 CDT CPT-39723 Administration single or combination vaccine inc oral 11 :49:51 CDT CPT-07085 Pneumovax 11:49:51 CDT CPT-29089 Ribs unilateral 2V 12:37:22 RAG SHREDDER CPT-11330 Chest 2V Frontal and Lat 17:15:26 CDT CPT-40630 Abx/Therapy Injection 18:54:02 CDT CPT-J0696 Rocephin 1000 mg (Ceftriaxone) 16:00:32 CDT CPT-06622 Chest 2V Frontal and Lat 15:26:45 CDT CPT-82657 Chest 2V Frontal and Lat 10:23:27 CDT CPT-02226 Venipuncture Draw Fee 10:11:00 CDT CPT-48249 Administration single or combination vaccine inc oral 11 :56:38 CDT CPT-77197 Influenza split virus > age 3 11:56:38 CDT CPT-15360 Venipuncture Draw Fee 08:49:54 RAG SHREDDER CPT-90656 EKG Trac and Interp 17:54:19 RAG SHREDDER
--- OUTSIDE RECORDS SUMMARY | 2018-07-02 15:59 | XMS REPORT | Clinical Summary ---
[...] unspecified type, uncontrolled PALPITATIONS 785.1 Active Alina Castanead MD PhD Palpitations UNSPECIFIED TACHYCARDIA 785.0 Resolved 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 Erazo PIANO TECHNICIAN Benign paroxysmal positional vertigo Vertigo, benign paroxysmal position 386.11 Inactive Mima Erazo PIANO TECHNICIAN Benign paroxysmal positional vertigo High-risk sexual behavior V69.2 Active Alina Castaneda MD PhD High-risk sexual behavior Erectile dysfunction 302.72 Active Alina Castaneda MD PhD Psychosexual dysfunction with inhibited sexual excitement Constipation 564.00 Active Alina Castaneda MD PhD Constipation, unspecified Skin lesion 709.9 Active Alina Castaneda MD PhD Unspecified disorder of skin and subcutaneous tissue Malaise and fatigue 780.79 Active Cherelle Speaks PIANO TECHNICIAN Other malaise and fatigue Diarrhea 787.91 Active Cherelle Speaks PIANO TECHNICIAN Diarrhea PHARYNGITIS 462 Active Cherelle Speaks PIANO TECHNICIAN Acute pharyngitis Colitis 558.9 Active Mima Erazo PIANO TECHNICIAN Other and unspecified noninfectious gastroenteritis and colitis WOUND, OPEN, NOSE ICD-873.20 Inactive Alina Castaneda MD PhD DIABETES, TYPE 2 ICD-250.00 Inactive Alina Castaneda MD PhD HYPERTENSION ICD-401.9 Inactive Alina Castaneda MD PhD URI ICD-465.9 Inactive Alina Castaneda MD PhD CHEST PAIN ICD-786.50 Inactive Alina Castaneda MD PhD FH STROKE ICD-V17.1 Inactive Marvel Charles CHIEF ENGINEER'S HELPER FATIGUE ICD-780.79 Inactive Alina Castaneda MD PhD DIABETES MELLITUS, TYPE II, UNCONTROLLED ICD-250.02 Inactive Marvel MARROQUIN UNSPECIFIED TACHYCARDIA ICD-785.0 Inactive Alina Castaneda MD PhD ABNORMAL HEART RHYTHMS ICD-427.9 Inactive Alina Castaneda MD PhD PROBLEMS RELATED TO HIGH-RISK SEXUAL BEHAVIOR ICD-V69.2 Inactive Alina Castaneda MD PhD CHEST COUGH ICD-786.2 Inactive Alina Castaneda MD PhD SINUSITIS, ACUTE ICD-461.9 Inactive Alina aCstaneda MD PhD BRONCHITIS, ACUTE ICD-466.0 Inactive Alina [...] x 1 week then daily FLUTICASONE PROPIONATE 84378987796 Active Mima Yokum PIANO TECHNICIAN Active BD PEN NEEDLE MINI U/F 31G X 5 MM MISC 4 a day INSULIN PEN NEEDLE 76059218498 Active Maliheh Ziglari CHIEF ENGINEER'S HELPER Active AMITIZA 24 MCG ORAL CAPS Take one capsule BID for constipation LUBIPROSTONE 42326115449 Active Mima Yokum PIANO TECHNICIAN Active LEVEMIR FLEXTOUCH 100 UNIT/ML SC SOPN 75 units SQ each evening, for diabetes INSULIN DETEMIR 63451251818 Active Mima Yokum PIANO TECHNICIAN Active TRUEPLUS LANCETS 30G MISC 3 a day LANCETS 06742956414 Active Malihnivia Mackenzieglari CHIEF ENGINEER'S HELPER Active TOLTERODINE TARTRATE 2 MG TABS 1 pill twice daily, for bladder TOLTERODINE TARTRATE 55103838464 No Longer Active Vanessa Hickey MD Active AMITIZA 24 MCG ORAL CAPS Take one capsule BID for constipation. LUBIPROSTONE 67782841217 No Longer Active Vanessa Hickey MD Active LOMOTIL 2.5-0.025 MG ORAL TABS take 1-2 tabs PO after each stool, no more than 8 in 24 hours DIPHENOXYLATE-ATROPINE 26454508697 Active Grace Azam RMA Active FLUVOXAMINE MALEATE 100 MG ORAL TABS take one tab every AM et HS, and take 1/ 2 tab at noon FLUVOXAMINE MALEATE 66255693179 Active Grace Azam RMA Active METOPROLOL SUCCINATE 100 MG [id number] 1 by mouth daily for blood pressure METOPROLOL SUCCINATE 74412078469 No Longer Active Grace Azam RMA Active METFORMIN HCL ER 500 MG [id number] Take three tablets by mouth everyday METFORMIN HCL 41731848307 No Longer Active Grace Azam RMA Active LOVAZA 1 GM CAPS 4 daily (for triglycerides) OMEGA-3- ACID ETHYL ESTERS 80104136232 No Longer Active Grace Azam RMA Active TRAZODONE HCL 100 MG ORAL TABS 1 tab by mouth for sleep TRAZODONE HCL 84234222830 No Longer Active Grace Azam RMA Active NOVOFINE 32G X 6 MM MISC use one four times per day INSULIN PEN NEEDLE 03219055452 No Longer Active Grace Azam RMA Active BACTROBAN 2 % CREAM Apply to affected area BID for up to 10 days MUPIROCIN CALCIUM 49295725963 No Longer Active Grace Azam RMA Active ZOFRAN 4 MG TABS 1 po q4hr PRN Nausea ONDANSETRON HCL 36325359878 Active Salina Ervinford RMA Active KEFLEX 500 MG CAP 1 po BID x 7 days CEPHALEXIN 84681668204 No Longer Active Cherelle Avila PIANO TECHNICIAN Active FLUVOXAMINE MALEATE 100 MG TABS Take one (1) tablet by mouth am, 1/2 at noon FLUVOXAMINE MALEATE 16523085569 No Longer Active Mima Erazo PIANO TECHNICIAN Active CORICIDIN HBP CONGESTION/COUGH 10-200 MG ORAL CAPS Take as directed on box as needed for cold/flu symptoms DEXTROMETHORPHAN-GUAIFENESIN 07459054411 Active Cherelle Avila APRN Active OMEGA-3 300 MG ORAL CAPS 4 caps by mouth daily OMEGA-3 FATTY ACIDS 78396678605 Active Mima Erazo PIANO TECHNICIAN Active FLUVOXAMINE MALEATE 100 MG ORAL TABS Take 1/2 tab at noon FLUVOXAMINE MALEATE 70515440923 No Longer Active Cherelle Avila PIANO TECHNICIAN Active [facility] LUBRICANT EYE DROPS 0.4-0.3 % OPHTH SOLN POLYETHYL GLYCOL-PROPYL GLYCOL 98563116173 Active Mima Erazo PIANO TECHNICIAN Active CLONAZEPAM 1 MG TABS 1/2 pill by mouth three times daily CLONAZEPAM 96440842832 Active Mima Erazo PIANO TECHNICIAN Active MIRALAX POWD 17g by mouth daily, for constipation POLYETHYLENE GLYCOL 3350 17313615358 Active Alina Castaneda MD PhD Active HYDROCODONE-ACETAMINOPHEN 5-325 MG TABS 2 tabs by mouth three times daily for pain HYDROCODONE-ACETAMINOPHEN 43108865007 Active Mima Erazo PIANO TECHNICIAN Active HUMALOG KWIKPEN 100 UNIT/ML SC SOPN 20 units with breakfast, 10 units with lunch, 10 units with dinner, for diabetes INSULIN LISPRO (HUMAN ) 72930074502 Active Alina Castaneda MD PhD Active LATUDA 120 MG ORAL TABS 1 pill by mouth nightly LURASIDONE HCL 37486315060 Active Alina Castaneda MD PhD Active COLACE 100 MG CAPS 1 pill by mouth twice daily, for constipation DOCUSATE SODIUM 31729011304 Active Alina Castaneda MD PhD Active TRUETEST TEST STRP check blood sugars 3x/day GLUCOSE BLOOD 49110531187 Active Marvel MARROQUIN Active ACCU-CHEK ROSA UZMA Use device to check blood sugars BLOOD GLUCOSE MONITORING SUPPL 74060587818 No Longer Active Marvel MARROQUIN Active ACCU-CHEK ROSA INVITR STRP use strips with device to check blood sugars 3 times daily GLUCOSE BLOOD 19681106922 No Longer Active Marvel MARROQUIN Active VERAPAMIL HCL ER 180 MG ORAL CR-TABS 1 pill by mouth twice daily, for migraine prevention VERAPAMIL HCL 34020447990 Active Alina Castaneda MD PhD Active CYCLOBENZAPRINE HCL 10 MG TABS 1 tablet by mouth three times daily, scheduled CYCLOBENZAPRINE HCL 00360102251 No Longer Active Alina Castaneda MD PhD Active HUMALOG 100 UNIT/ML SOLN Take 20 units with breakfast, 10u with lunch and suppetr. INSULIN LISPRO (HUMAN) 91580118441 No Longer Active Alina Castaneda MD PhD Active TRUETEST TEST STRP check sugars 4x/day GLUCOSE BLOOD 31226156723 No Longer Active Alina Castaneda MD PhD Active MORPHINE SULFATE 30 MG TABS 1 pill by mouth twice daily, for pain MORPHINE SULFATE 29943659249 Active Mima Erazo PIANO TECHNICIAN Active ACYCLOVIR 400 MG ORAL TABS 1 pill three times daily x 5 days, for cold sore outbreak ACYCLOVIR 72189461055 No Longer Active Alina Castaneda MD PhD Active PENICILLIN V POTASSIUM 500 MG TABS 1 pill by mouth three times daily PENICILLIN V POTASSIUM 19044615340 No Longer Active Alina Castaneda MD PhD Active UROXATRAL 10 MG [id number]-[id number] Take 1 tablet by mouth daily ALFUZOSIN HCL 85695261925 No Longer Active Alina Castaneda MD PhD Active THIOTHIXENE 5 MG CAPS by mouth twice a day THIOTHIXENE 17845353780 No Longer Active Alina Castaneda MD PhD Active ZYPREXA 7.5 MG TABS 1 at HS OLANZAPINE 74088503289 No Longer Active Alina Castaneda MD PhD Active BD INSULIN SYRINGE 28G X 1/2" 1 ML MISC 1 four times per day INSULIN SYRINGE-NEEDLE U-100 54874949229 Active Marvel MARROQUIN Active DETROL LA 4 MG [id number] Take 1 tablet by mouth daily TOLTERODINE TARTRATE 41297725537 No Longer Active Alina Castaneda MD PhD Active TERESE CONTOUR TEST STRP monitor blood sugars 3x/day GLUCOSE BLOOD 98410740801 No Longer Active Alina Castaneda MD PhD Active EQL TRUETEST TEST STRP Test blood sugar TID GLUCOSE BLOOD 55877820443 No Longer Active Alina Castaneda MD PhD Active FLUTICASONE PROPIONATE 50 MCG/ACT SUSP 2 sprays each nostril qDay x 30 days FLUTICASONE PROPIONATE 76121771389 No Longer Active Alina Castaneda MD PhD Active IBUPROFEN 200 MG TABS 1 Q 6 hr. PRN IBUPROFEN 74263131468 No Longer Active Alina Castaneda MD PhD Active NIACIN ER 500 MG CR-TABS 4 qHS (for triglycerides) NIACIN 63239212248 No Longer Active Alina Castaneda MD PhD Active ALFUZOSIN HCL ER 10 MG [id number] 1 tablet daily ALFUZOSIN HCL 61158606344 Active Vanessa Hickey MD Active SAPHRIS 5 MG SUBL by mouth twice a day ASENAPINE MALEATE 37629499658 No Longer Active Marvel MARROQUIN Active ACETAMINOPHEN 500 MG TABS 2 Q 6 hr. PRN ACETAMINOPHEN 33235849442 No Longer Active Marvel MARROQUIN Active ORPHENADRINE CITRATE ER 100 MG [id number] 1 every 12 hr. as needed ORPHENADRINE CITRATE 12025612501 No Longer Active Alina Castaneda MD PhD Active NIACIN CR 500 MG CR-TABS 2 qHS NIACIN 96836671026 No Longer Active Alina Castaneda MD PhD Active AMOXICILLIN 500 MG CAPS 2 po BID x 10 days AMOXICILLIN 21033044108 No Longer Active Alina Castaneda MD PhD Active HYDROCODONE-ACETAMINOPHEN 7.5-325 MG TABS 1 four times a day as needed for pain HYDROCODONE-ACETAMINOPHEN 42672222568 No Longer Active Alina Castaneda MD PhD Active DOXEPIN HCL 10 MG CAPS Take 1 tablet by mouth daily DOXEPIN HCL 39397153289 No Longer Active Salina Han A Active NAVANE 10 MG CAPS 1/2 tablet twice a day THIOTHIXENE No Longer Active Salina Han A Active CYCLOBENZAPRINE HCL 10 MG TABS 1/2 tablet by mouth every 8 hours as needed for muscle spasms CYCLOBENZAPRINE HCL 32542347495 No Longer Active Alina Castaneda MD PhD Active BACTROBAN 2 % CREAM apply to ear and nose twice daily MUPIROCIN CALCIUM 34585937922 No Longer Active Alina Castaneda MD PhD Active HYDROCODONE-ACETAMINOPHEN 5-325 MG TABS take one tablet by mouth every four hours as needed for pain HYDROCODONE-ACETAMINOPHEN 81327387676 No Longer Active Alina Castaneda MD PhD Active ZOLPIDEM TARTRATE 10 MG TABS take at bedtime ZOLPIDEM TARTRATE 46419817323 Active Alina Castaneda MD PhD Active ZYPREXA 5 MG TABS take one tablet by mouth every evening OLANZAPINE 51881626128 No Longer Active Alina Castaneda MD PhD Active ALBUTEROL SULFATE 0.083 % NEBU SOLN one vial per nebulizer TID and PRN cough/ soa ALBUTEROL SULFATE 52636880606 No Longer Active Alina Castaneda MD PhD Active GUAIFENESIN 600 MG [id number] 1 tablet by mouth twice daily if needed for cough GUAIFENESIN 26826563949 No Longer Active Marvel MARROQUIN Active AZITHROMYCIN 500 MG SOLR 1 po q day AZITHROMYCIN 88178948085 No Longer Active Alina Castaneda MD PhD Active PROMETHAZINE-CODEINE 6.25-10 MG/5ML SYRP 1 tsp po q 6 hours prn cough PROMETHAZINE-CODEINE 87646244959 No Longer Active Alina Castaneda MD PhD Active CEFDINIR 300 MG CAPS by mouth twice a day CEFDINIR 48243384964 No Longer Active Alina Castaneda MD PhD Active METFORMIN HCL 500 MG [id number]-CLU Take 3 tablets by mouth everyday METFORMIN HCL 54199654852 No Longer Active Alina Castaneda MD PhD Active LEVEMIR 100 UNIT/ML SOLN 90 units SQ qHS INSULIN DETEMIR 91663085265 No Longer Active Marvel MARROQUIN Active TOPROL XL 100 MG [id number] 1 @ HS METOPROLOL SUCCINATE 99410461568 No Longer Active Marvel MARROQUIN Active ALLOPURINOL 300 MG TABS Take one by mouth daily ALLOPURINOL 19875666443 Active Mima Aguilarliudmila PIANO TECHNICIAN Active ZYPREXA 10 MG TABS Take one by mouth daily OLANZAPINE 40179444358 No Longer Active Alina Castaneda MD PhD Active NOVOLOG 100 UNIT/ML SOLN 40 units with every meal INSULIN ASPART 76573475376 No Longer Active Alina Castaneda MD PhD Active VERAPAMIL HCL CR 120 MG TAB CR 1 qPM VERAPAMIL HCL 13716444878 No Longer Active Salina Emely ROJAS Active ZYPREXA 15 MG TABS Take 1 tablet by mouth daily OLANZAPINE 13037580667 No Longer Active Marvel MARROQUIN Active LISINOPRIL 20 MG TABS 1 BID LISINOPRIL 93559248385 Active Alina Castaneda MD PhD Active ALBUTEROL SULFATE (2.5 MG/3ML) 0.083% NEBU 1 neb tid and prn cough ALBUTEROL SULFATE 73736941157 No Longer Active Alina Castaneda MD PhD Active TRAVATAN Z 0.004 % SOLN 1 gtt each eye daily TRAVOPROST 30797133974 Active CRYSTAL Suarez Active LANTUS 100 UNIT/ML SOLN 60 units sq q hs INSULIN GLARGINE 94135646322 No Longer Active CRYSTAL Suarez Active ALBUTEROL SULFATE (2.5 MG/3ML) 0.083% NEBU 1 neb tid and prn cough ALBUTEROL SULFATE (2.5 MG/3ML) 0.083% NEBU 621916 ALBUTEROL SULFATE Inactive ZYPREXA 15 MG TABS Take 1 tablet by mouth daily ZYPREXA 15 MG TABS 094745 OLANZAPINE Inactive VERAPAMIL HCL CR 120 MG TAB CR 1 qPM VERAPAMIL HCL CR 120 MG TAB CR VERAPAMIL HCL Inactive ZYPREXA 10 MG TABS Take one by mouth daily ZYPREXA 10 MG TABS 576264 OLANZAPINE Inactive TOPROL XL 100 MG [id number] 1 @ HS TOPROL XL 100 MG [id number] METOPROLOL SUCCINATE Inactive LEVEMIR 100 UNIT/ML SOLN 90 units SQ qHS LEVEMIR 100 UNIT/ML SOLN INSULIN DETEMIR Inactive PROMETHAZINE-CODEINE 6.25-10 MG/5ML SYRP 1 tsp po q 6 hours prn cough PROMETHAZINE-CODEINE 6.25-10 MG/5ML SYRP 309651 PROMETHAZINE- CODEINE Inactive GUAIFENESIN 600 MG [id number]-OTR 1 tablet by mouth twice daily if needed for cough GUAIFENESIN 600 MG [id number] GUAIFENESIN Inactive ALBUTEROL SULFATE 0.083 % NEBU SOLN one vial per nebulizer TID and PRN cough/ soa ALBUTEROL SULFATE 0.083 % NEBU SOLN 310211 ALBUTEROL SULFATE Inactive ZYPREXA 5 MG TABS take one tablet by mouth every evening ZYPREXA 5 MG TABS 696120 OLANZAPINE Inactive HYDROCODONE-ACETAMINOPHEN 5-325 MG TABS take one tablet by mouth every four hours as needed for pain HYDROCODONE-ACETAMINOPHEN 5-325 MG TABS 350385 HYDROCODONE-ACETAMINOPHEN Inactive BACTROBAN 2 % CREAM apply to ear and nose twice daily BACTROBAN 2 % CREAM 418558 MUPIROCIN CALCIUM Inactive CYCLOBENZAPRINE HCL 10 MG TABS 1/2 tablet by mouth every 8 hours as needed for muscle spasms CYCLOBENZAPRINE HCL 10 MG TABS 216812 CYCLOBENZAPRINE HCL Inactive NAVANE 10 MG CAPS 1/2 tablet twice a day NAVANE 10 MG CAPS THIOTHIXENE Inactive DOXEPIN HCL 10 MG CAPS Take 1 tablet by mouth daily DOXEPIN HCL 10 MG CAPS 5484400 DOXEPIN HCL Inactive HYDROCODONE-ACETAMINOPHEN 7.5-325 MG TABS 1 four times a day as needed for pain HYDROCODONE-ACETAMINOPHEN 7.5-325 MG TABS 423463 HYDROCODONE-ACETAMINOPHEN Inactive NIACIN CR 500 MG CR-TABS 2 qHS NIACIN CR 500 MG CR- TABS NIACIN Inactive ORPHENADRINE CITRATE ER 100 MG [id number] 1 every 12 hr. as needed ORPHENADRINE CITRATE ER 100 MG [id number] ORPHENADRINE CITRATE Inactive ACETAMINOPHEN 500 MG TABS 2 Q 6 hr. PRN ACETAMINOPHEN 500 MG TABS 936871 ACETAMINOPHEN Inactive SAPHRIS 5 MG SUBL by mouth twice a day SAPHRIS 5 MG SUBL ASENAPINE MALEATE Inactive NIACIN ER 500 MG CR-TABS 4 qHS (for triglycerides) NIACIN ER 500 MG CR-TABS NIACIN Inactive IBUPROFEN 200 MG TABS 1 Q 6 hr. PRN IBUPROFEN 200 MG TABS 584628 IBUPROFEN Inactive FLUTICASONE PROPIONATE 50 MCG/ACT SUSP 2 sprays each nostril qDay x 30 days FLUTICASONE PROPIONATE 50 MCG/ACT SUSP 289104 FLUTICASONE PROPIONATE Inactive EQL TRUETEST TEST STRP Test blood sugar TID EQL TRUETEST TEST STRP GLUCOSE BLOOD Inactive TERESE CONTOUR TEST STRP monitor blood sugars 3x/day TERESE CONTOUR TEST STRP GLUCOSE BLOOD Inactive DETROL LA 4 MG [id number] Take 1 tablet by mouth daily DETROL LA 4 MG [id number] TOLTERODINE TARTRATE Inactive ZYPREXA 7.5 MG TABS 1 at HS ZYPREXA 7.5 MG TABS 287648 OLANZAPINE Inactive THIOTHIXENE 5 MG CAPS by mouth twice a day THIOTHIXENE 5 MG CAPS 203126 THIOTHIXENE Inactive UROXATRAL 10 MG [id number]-PKF Take 1 tablet by mouth daily UROXATRAL 10 MG [id number]-IMO ALFUZOSIN HCL Inactive ACYCLOVIR 400 MG ORAL TABS 1 pill three times daily x 5 days, for cold sore outbreak ACYCLOVIR 400 MG ORAL TABS 150842 ACYCLOVIR Inactive TRUETEST TEST STRP check sugars 4x/day TRUETEST TEST STRP GLUCOSE BLOOD Inactive HUMALOG 100 UNIT/ML SOLN Take 20 units with breakfast, 10u with lunch and suppetr. HUMALOG 100 UNIT/ML SOLN INSULIN LISPRO ( HUMAN) Inactive CYCLOBENZAPRINE HCL 10 MG TABS 1 tablet by mouth three times daily, scheduled CYCLOBENZAPRINE HCL 10 MG TABS 853274 CYCLOBENZAPRINE HCL Inactive ACCU-CHEK ROSA INVITR STRP use strips with device to check blood sugars 3 times daily ACCU-CHEK ROSA INVITR STRP GLUCOSE BLOOD Inactive ACCU-CHEK ROSA UZMA Use device to check blood sugars ACCU-CHEK ROSA UZMA BLOOD GLUCOSE MONITORING SUPPL Inactive FLUVOXAMINE MALEATE 100 MG ORAL TABS Take 1/2 tab at noon FLUVOXAMINE MALEATE 100 MG ORAL TABS 887919 FLUVOXAMINE MALEATE Inactive FLUVOXAMINE MALEATE 100 MG TABS Take one (1) tablet by mouth am, 1/2 at noon FLUVOXAMINE MALEATE 100 MG TABS 997031 FLUVOXAMINE MALEATE Inactive BACTROBAN 2 % CREAM Apply to affected area BID for up to 10 days BACTROBAN 2 % CREAM 682618 MUPIROCIN CALCIUM Inactive NOVOFINE 32G X 6 MM MISC use one four times per day NOVOFINE 32G X 6 MM MISC INSULIN PEN NEEDLE Inactive TRAZODONE HCL 100 MG ORAL TABS 1 tab by mouth for sleep TRAZODONE HCL 100 MG ORAL TABS 511976 TRAZODONE HCL Inactive LOVAZA 1 GM CAPS 4 daily (for triglycerides) LOVAZA 1 GM CAPS 766211 ZJXMO-[id number] ETHYL ESTERS Inactive METFORMIN HCL ER 500 MG KO73H-YHL Take three tablets by mouth everyday METFORMIN HCL ER 500 MG RJ16R-MLW METFORMIN HCL Inactive METOPROLOL SUCCINATE 100 MG JS07Z-NBG 1 by mouth daily for blood pressure METOPROLOL SUCCINATE 100 MG XW39W-KNQ METOPROLOL SUCCINATE Inactive AMITIZA 24 MCG ORAL CAPS Take one capsule BID for constipation. AMITIZA 24 MCG ORAL CAPS LUBIPROSTONE Inactive TOLTERODINE TARTRATE 2 MG TABS 1 pill twice daily, for bladder TOLTERODINE TARTRATE 2 MG TABS 732756 TOLTERODINE TARTRATE Inactive CEFDINIR 300 MG CAPS by mouth twice a day CEFDINIR 300 MG CAPS 502909 CEFDINIR Inactive AZITHROMYCIN 500 MG SOLR 1 po q day AZITHROMYCIN 500 MG SOLR 18116589990 AZITHROMYCIN Inactive AMOXICILLIN 500 MG CAPS 2 po BID x 10 days AMOXICILLIN 500 MG CAPS 506822 AMOXICILLIN Inactive PENICILLIN V POTASSIUM 500 MG TABS 1 pill by mouth three times daily PENICILLIN V POTASSIUM 500 MG TABS 840021 PENICILLIN V POTASSIUM Inactive KEFLEX 500 MG CAP 1 po BID x 7 days KEFLEX 500 MG CAP 623476 CEPHALEXIN Inactive Immunizations Vaccine Administration Date Value [...] Fluvirin, Fluarix, Agriflu(>=18 yo)) Fluzone (>3 yrs.) [[id number]] Influenza, seasonal, injectable pneumococcal immunization administered Pneumovax [...] Panel - Chemistry sodium, serum 137 mmol/L 156-995 6169/10/12 potassium, serum 4.8 mmol/L 3.5-5.2 chloride, serum 102 mmol/L 98-107 carbon dioxide, venous blood 27.6 mmol/L 21.0-32.0 blood glucose 168 mg/dL 65-110 calcium, serum 9.0 mg/dL 8.5-10.1 urea nitrogen, blood 15 mg/dL 7-18 creatinine, serum 1.04 mg/dL 0.55-1.30 sodium, serum 138 mmol/L 786-084 0301/11/11 potassium, serum 4.7 mmol/L 3.5-5.2 chloride, serum [...] % 11.6-14.8 platelet count 240 10^3/MM^3 10*3/mm3 241-668 9002/11/11 leukocyte count, blood 9.6 10^3/MM^3 10*3/mm3 4.6-10.2 [...] 4.7 mg/dL 2.6-7.2 cholesterol, serum 142 mg/dL 722-195 5781/06/26 triglyceride, serum, fasting 272 mg/dL 30-200 HDL [...] negative Encounters Code Encounter Date Provider Facility CPT-71553 Level 3 Est. Patient 14:39:00 KHALIF Hickey MD [facility] CPT-03408 Level 2 Est. Patient 18:43:34 CDT Mima Erazo [facility] CPT-26749 Level 3 Est. Patient 16:22:09 CDT Cherelle Avila [facility] CPT-98085 Level 4 Est. Patient 17:55:14 CDT Mima Erazo [facility] [place] [facility] [place] Level 2 Est. Patient 17:13:21 CDT Alina Castaneda MD [facility]-65990 Level 3 Est. Patient 14:46:15 CDT Vanessa Hickey MD [facility]-67659 Level 3 Est. Patient 09:34:56 CDT Alina Castaneda MD [facility]-36468 Level 3 Est. Patient 21:40:19 CDT Mima Erazo [facility] [place] [facility] [place]-79793 Level 3 Est. Patient 09:26:40 CDT Marvel Charles [facility]-98915 Level 3 Est. Patient 12:36:43 CDT Vanessa Hickey MD [facility]-32260 Level 3 Est. Patient 12:57:49 CDT Vanessa Hickey MD [facility]-04093 Level 3 Est. Patient 00:28:25 CDT Alina Castaneda MD [facility]-77180 Level 2 Est. Patient 12:52:14 CDT Alina Castaneda MD [facility]-27813 Level 3 Est. Patient 11:51:18 CERAMIC SAW TENDER Alina Castaneda MD [facility]-61359 Level 3 Est. Patient 10:09:22 CERAMIC SAW TENDER Alina Castaneda MD [facility]-44498 Level 3 Est. Patient 14:36:26 CERAMIC SAW TENDER Marvel Charles [facility]-95616 Level 3 Est. Patient 13:34:47 CERAMIC SAW TENDER Alina Castaneda MD [facility]-40963 Level 3 Est. Patient 19:52:08 CERAMIC SAW TENDER Alina Castaneda MD [facility]23367 Level 3 Est. Patient 10:01:51 CERAMIC SAW TENDER Marvel Charles [facility] CPT-20827 Level 3 Est. Patient 21:54:06 CDT Vanessa Hickey MD [facility]-20692 Level 3 Est. Patient 08:54:46 CDT Alina Castaneda MD PhD [facility]-73995 Level 3 Est. Patient 09:32:11 CDT Brooksjohn Charles [facility]-82418 Level 3 Est. Patient 12:02:49 CDT Alina Castaneda MD PhD [facility]-82991 Level 3 Est. Patient 19:17:33 CDT Alina Castaneda MD PhD [facility]-22326 Level 3 Est. Patient 13:19:10 CDT Brooksjohn Charles [facility]-83755 Level 3 Est. Patient 08:20:05 CDT Alina Castaneda MD PhD [facility]-18886 Level 3 Est. Patient 15:17:18 CDT Alina Castaneda MD [facility]-56425 Level 3 Est. Patient 14:25:36 CERAMIC SAW TENDER Marvel Araecli [facility]-40428 Level 3 Est. Patient 10:09:15 CERAMIC SAW TENDER Marvel Gurdeepanca [facility] CPT-86825 Level 3 Est. Patient 21:28:43 CDT Alina Castaneda MD PhD [facility]-33874 Level 3 Est. [facility] 15:20:11 [facility]-82705 Level 4 Est. Patient 19:08:12 CDT Alina Castaneda MD [facility]-63544 Level 3 Est. Patient 15:06:39 CDT Marvel Charles [facility] CPT-80913 Level 4 Est. Patient 17:48:15 CDT Alina Castaneda MD [facility]-44502 Level 3 Est. Patient 14:53:49 CDT Alina Castaneda MD [facility]-34248 Level 3 Est. Patient 09:35:16 CDT Alina Castaneda MD [facility]-74025 Level 3 Est. Patient 12:23:22 CDT Alina Castaneda MD [facility]-49689 Level 3 Est. Patient 16:19:15 CDT Alina Castaneda MD [facility]-66969 Level 3 Est. Patient 21:39:56 CERAMIC SAW TENDER Alina Castaneda MD [facility]-56709 Level 4 Est. Patient 14:12:56 CERAMIC SAW TENDER Alina Castaneda MD [facility]-16311 Level 2 Est. Patient 15:34:57 CERAMIC SAW TENDER Alina Castaneda MD [facility] CPT-18631 Level 3 Est. Patient 12:17:04 CERAMIC SAW TENDER Alina Castaneda MD [facility]-11420 Level 3 Est. Patient 09:18:18 CERAMIC SAW TENDER Marvel Charles [facility] CPT-01108 Level 2 Est. Patient 21:50:24 CDT Alina Castaneda MD [facility]-92400 Level 3 Est. Patient 09:17:28 CDT aMrvel Charles [facility] CPT-01415 Level 4 Est. Patient 18:54:02 CDT Alina Castaneda MD [facility] CPT-53284 Level 3 Est. Patient 10:47:10 CDT Alina Castaneda MD [facility] CPT-75934 Level 3 Est. Patient 09:22:20 CDT Marvel Thurstonestela [facility] CPT-77089 Level 3 Est. Patient 16:39:43 CDT Marvel Thurstonestela [facility] CPT-94691 Level 3 Est. Patient 16:05:16 CDT Alina Castaneda MD [facility] CPT-41308 Level 3 Est. Patient 00:29:15 CDT Alina Castaneda MD [facility] CPT-63253 Level 3 Est. Patient 10:49:22 CERAMIC SAW TENDER Marvel Gurdeepajayestela [facility] CPT-46262 Level 3 Est. Patient 21:30:19 CERAMIC SAW TENDER Alina Castaneda MD [facility] CPT-11873 Level 4 Est. Patient 17:04:11 CERAMIC SAW TENDER Marvel Thurstonestela [facility] CPT-46451 Level 3 Est. Patient 15:34:11 CERAMIC SAW TENDER Brooksnivia Gurdeepajayestela [facility] CPT-40916 Level 2 Est. Patient 12:51:58 CERAMIC SAW TENDER Alina Castaneda MD [facility] CPT-08841 Level 3 Est. Patient 13:20:01 CERAMIC SAW TENDER Alina Castaneda MD [facility] CPT-95841 Level 3 Est. Patient 09:23:35 CDT Alina Castaneda MD [facility] Procedures Code Procedure Name Date Entry Date Standard Description CPT-53792 Bladder Scan 14:39:01 CERAMIC SAW TENDER CPT-TCMM Transitional Care Mgmt-Moderate 10:30:19 CERAMIC SAW TENDER CPT-25550 Bladder Scan 12:36:44 CDT CPT-76095 Bladder Scan 21:54:06 CDT CPT-G0008 Administration of Influenza Virus Vaccine 13:05:26 CDT CPT-06553 Fluzone Quadrivalent Intramuscular Suspension 0.5 ML 13: 05:26 CDT CPT-75588 Administration single or combination vaccine inc oral 11 :49:51 CDT CPT-97756 Pneumovax 11:49:51 CDT CPT-74409 Ribs unilateral 2V 12:37:22 CERAMIC SAW TENDER CPT-50837 Chest 2V Frontal and Lat 17:15:26 CDT CPT-85147 Abx/Therapy Injection 18:54:02 CDT CPT-J0696 Rocephin 1000 mg (Ceftriaxone) 16:00:32 CDT CPT-97181 Chest 2V Frontal and Lat 15:26:45 CDT CPT-50016 Chest 2V Frontal and Lat 10:23:27 CDT CPT-43900 Venipuncture Draw Fee 10:11:00 CDT CPT-65216 Administration single or combination vaccine inc oral 11 :56:38 CDT CPT-08470 Influenza split virus > age 3 11:56:38 CDT CPT-99601 Venipuncture Draw Fee 08:49:54 CERAMIC SAW TENDER CPT-03862 EKG Trac and Interp 17:54:19 CERAMIC SAW TENDER
--- OUTSIDE RECORDS SUMMARY | 2018-07-02 16:01 | XMS REPORT | Clinical Summary ---
Author Author Admin, TERELL Organization [facility] Address Unknown Phone Unavailable Allergies, [...] site, uncomplicated ANXIETY DISORDER 300.00 Active Alina Castnaeda MD PhD Anxiety state, unspecified DIABETES, TYPE 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 Kacey CIGAR BRANDER Benign paroxysmal positional vertigo Vertigo, benign paroxysmal position 386.11 Inactive Mima Kacey CIGAR BRANDER Benign paroxysmal positional vertigo High-risk sexual behavior [...] MD PhD SINUSITIS, ACUTE ICD-461.9 Inactive Alina Castanead MD PhD BRONCHITIS, ACUTE ICD-466.0 Inactive Alina Castaneda MD PhD PNEUMONIA, ORGANISM UNSPECIFIED ICD-486 Inactive Alina Castaneda MD PhD RIB PAIN, RIGHT SIDED ICD-786.50 Inactive Alina Castaneda MD PhD SKIN LESION ICD-709.9 Inactive Alina Csataneda MD PhD SINUSITIS, ACUTE ICD-461.9 Inactive Alina [...] 10u lunch and supper INSULIN LISPRO (HUMAN) 88590258396 Active Marvel Araceli MARROQUIN Active LATUDA 120 MG ORAL TABS 1 pill by mouth nightly LURASIDONE HCL 83761931786 Active Alina Castaneda MD PhD Active COLACE 100 MG CAPS 1 pill by mouth twice daily, for constipation DOCUSATE SODIUM 26278073232 Active Alina Castaneda MD PhD Active TRUETEST TEST STRP check blood sugars 3x/day GLUCOSE BLOOD 11788761174 Active Malnivia 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 LAYER OFF Active ACCU-CHEK ROSA UZMA Use device to check blood sugars BLOOD GLUCOSE MONITORING SUPPL 37888600584 No Longer Active Marvel 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 LAYER OFF Active ACCU-CHEK ROSA INVITR STRP use strips with device to check blood sugars 3 times daily GLUCOSE BLOOD 25858876182 No Longer Active Brooksn[place] Araclei MENDOZAP Active VERAPAMIL HCL ER 180 MG ORAL CR-TABS 1 pill by mouth twice daily, for migraine prevention VERAPAMIL HCL 41437203546 Active Alina Castaneda MD PhD Active CYCLOBENZAPRINE HCL 10 MG TABS 1 tablet by mouth three times daily, scheduled CYCLOBENZAPRINE HCL 99936158224 No Longer Active Alina Castaneda MD PhD Active HUMALOG 100 UNIT/ML SOLN Take 20 units with breakfast, 10u with lunch and suppetr. INSULIN LISPRO (HUMAN) 30691490636 No Longer Active Alina Castaneda MD PhD Active TRUETEST TEST STRP check sugars 4x/day GLUCOSE BLOOD 54350332309 No Longer Active Alina Castaneda MD PhD Active MORPHINE SULFATE 30 MG TABS 1 pill by mouth twice daily, for pain MORPHINE SULFATE 40170871414 Active Mason Loredo MD Active ACYCLOVIR 400 MG ORAL TABS 1 pill three times daily x 5 days, for cold sore outbreak ACYCLOVIR 48099083564 No Longer Active Alina Castaneda MD PhD Active PENICILLIN V POTASSIUM 500 MG TABS 1 pill by mouth three times daily PENICILLIN V POTASSIUM 27234160032 No Longer Active Alina Castaneda MD PhD Active UROXATRAL 10 MG [id number]-ZFD Take 1 tablet by mouth daily ALFUZOSIN HCL 62484610259 No Longer Active Alina Castaneda MD PhD Active THIOTHIXENE 5 MG CAPS by mouth twice a day THIOTHIXENE 51940092718 No Longer Active Alina Castaneda MD PhD Active ZYPREXA 7.5 MG TABS 1 at HS OLANZAPINE 42090685994 No Longer Active Alina Castaneda MD PhD Active LEVEMIR 100 UNIT/ML SOLN Take 70 u at 7-8pm INSULIN DETEMIR 72991529951 Active Mallashondaeh Ziglari LAYER OFF Active BD INSULIN SYRINGE 28G X 1/2" 1 ML MISC 1 four times per day INSULIN SYRINGE-NEEDLE U-100 03364007089 Active Maljohn Mackenzieglari LAYER OFF Active TOLTERODINE TARTRATE 2 MG TABS 1 pill twice daily, for bladder TOLTERODINE TARTRATE 97770620071 Active Alina Castaneda MD PhD Active DETROL LA 4 MG [id number] Take 1 tablet by mouth daily TOLTERODINE TARTRATE 04970181831 No Longer Active Alina Castaneda MD PhD Active HYDROCODONE-ACETAMINOPHEN 5-325 MG TABS 2 tabs by mouth three times daily as needed for pain HYDROCODONE-ACETAMINOPHEN 14183866639 Active Alina Castaneda MD PhD Active TERESE CONTOUR TEST STRP monitor blood sugars 3x/day GLUCOSE BLOOD 97706219972 No Longer Active Alina Castaneda MD PhD Active EQL TRUETEST TEST STRP Test blood sugar TID GLUCOSE BLOOD 85414769858 No Longer Active Alina Castaneda MD PhD Active FLUTICASONE PROPIONATE 50 MCG/ACT SUSP 2 sprays each nostril qDay x 30 days FLUTICASONE PROPIONATE 57387746782 No Longer Active Alina Castaneda MD PhD Active IBUPROFEN 200 MG TABS 1 Q 6 hr. PRN IBUPROFEN 59630345881 No Longer Active Alina Castaneda MD PhD Active NIACIN ER 500 MG CR-TABS 4 qHS (for triglycerides) NIACIN 44049701334 No Longer Active Alina Castaneda MD PhD Active ALFUZOSIN HCL ER 10 MG [id number] 1 tablet daily ALFUZOSIN HCL 19473392331 Active Vanessa Hickey MD Active CLONAZEPAM 1 MG TABS 1 pill by mouth three times daily CLONAZEPAM 22305152721 Active Alina Castaneda MD PhD Active LOVAZA 1 GM CAPS 4 daily (for triglycerides) ESIBA-7-[id number] ETHYL ESTERS 56615549570 Active Alina Castaneda MD PhD Active SAPHRIS 5 MG SUBL by mouth twice a day ASENAPINE MALEATE 72398127173 No Longer Active Marvel MARROQUIN Active ACETAMINOPHEN 500 MG TABS 2 Q 6 hr. PRN ACETAMINOPHEN 22672445388 No Longer Active Marvel MARROQUIN Active ORPHENADRINE CITRATE ER 100 MG [id number]-FBQ 1 every 12 hr. as needed ORPHENADRINE CITRATE 12107556394 No Longer Active Alina Castaneda MD PhD Active NIACIN CR 500 MG CR-TABS 2 qHS NIACIN 06554879513 No Longer Active Alina Castaneda MD PhD Active AMOXICILLIN 500 MG CAPS 2 po BID x 10 days AMOXICILLIN 51483747543 No Longer Active Alina Castaneda MD PhD Active HYDROCODONE-ACETAMINOPHEN 7.5-325 MG TABS 1 four times a day as needed for pain HYDROCODONE-ACETAMINOPHEN 16362598205 No Longer Active Alina Castaneda MD PhD Active METFORMIN HCL ER 500 MG [id number] Take three tablets by mouth everyday METFORMIN HCL 90186415400 Active Marvel MENDOZAP Active DOXEPIN HCL 10 MG CAPS Take 1 tablet by mouth daily DOXEPIN HCL 32179363545 No Longer Active Salina Han RMA Active NAVANE 10 MG CAPS 1/2 tablet twice a day THIOTHIXENE No Longer Active Salina Han RMA Active CYCLOBENZAPRINE HCL 10 MG TABS 1/2 tablet by mouth every 8 hours as needed for muscle spasms CYCLOBENZAPRINE HCL 92647202149 No Longer Active Alina Castaneda MD PhD Active BACTROBAN 2 % CREAM apply to ear and nose twice daily MUPIROCIN CALCIUM 28610321363 No Longer Active Alina Castaneda MD PhD Active HYDROCODONE-ACETAMINOPHEN 5-325 MG TABS take one tablet by mouth every four hours as needed for pain HYDROCODONE-ACETAMINOPHEN 32329849393 No Longer Active Alina Castaneda MD PhD Active ZOLPIDEM TARTRATE 10 MG TABS take at bedtime ZOLPIDEM TARTRATE 85138807981 Active Alina Castaneda MD PhD Active ZYPREXA 5 MG TABS take one tablet by mouth every evening OLANZAPINE 16502537570 No Longer Active Alina Castaneda MD PhD Active ALBUTEROL SULFATE 0.083 % NEBU SOLN one vial per nebulizer TID and PRN cough/ soa ALBUTEROL SULFATE 46353466439 No Longer Active Alina Castaneda MD PhD Active GUAIFENESIN 600 MG RK04A-RXY 1 tablet by mouth twice daily if needed for cough GUAIFENESIN 79254157050 No Longer Active Marvel MENDOZAP Active AZITHROMYCIN 500 MG SOLR 1 po q day AZITHROMYCIN 51877504002 No Longer Active Alina Castaneda MD PhD Active METOPROLOL SUCCINATE 100 MG ND04S-JEP 1 by mouth daily for blood pressure METOPROLOL SUCCINATE 52260878075 Active Alina Castaneda MD PhD Active PROMETHAZINE-CODEINE 6.25-10 MG/5ML SYRP 1 tsp po q 6 hours prn cough PROMETHAZINE-CODEINE 45361879391 No Longer Active Alina Castaneda MD PhD Active CEFDINIR 300 MG CAPS by mouth twice a day CEFDINIR 35321446737 No Longer Active Alina Castaneda MD PhD Active METFORMIN HCL 500 MG ST92M-NHI Take 3 tablets by mouth everyday METFORMIN HCL 57775925738 No Longer Active Alina Castaneda MD PhD Active LEVEMIR 100 UNIT/ML SOLN 90 units SQ qHS INSULIN DETEMIR 15426968340 No Longer Active Marvel MARROQUIN Active TOPROL XL 100 MG HS04H-VTS 1 @ HS METOPROLOL SUCCINATE 36143768337 No Longer Active Marvel MARROQUIN Active ALLOPURINOL 300 MG TABS Take one by mouth daily ALLOPURINOL 79720167662 Active Alina Castaneda MD PhD Active ZYPREXA 10 MG TABS Take one by mouth daily OLANZAPINE 01459794248 No Longer Active Alina Castaneda MD PhD Active NOVOLOG 100 UNIT/ML SOLN 40 units with every meal INSULIN ASPART 88113388294 No Longer Active Alina Castaneda MD PhD Active VERAPAMIL HCL CR 120 MG TAB CR 1 qPM VERAPAMIL HCL 09029844405 No Longer Active Salina Han A Active ZYPREXA 15 MG TABS Take 1 tablet by mouth daily OLANZAPINE 79292722201 No Longer Active Brooksjohn MARROQUIN Active LISINOPRIL 20 MG TABS 1 BID LISINOPRIL 34448025429 Active Alina Castaneda MD PhD Active ALBUTEROL SULFATE (2.5 MG/3ML) 0.083% NEBU 1 neb tid and prn cough ALBUTEROL SULFATE 82002380994 No Longer Active Alina Castaneda MD PhD Active FLUVOXAMINE MALEATE 100 MG TABS Take one (1) tablet by mouth am, 1/2 at noon, 1 pm FLUVOXAMINE MALEATE 43216452707 Active Alina Castaneda MD PhD Active TRAVATAN Z 0.004 % SOLN 1 gtt each eye daily TRAVOPROST 73233940418 Active CRYSTAL Suarez Active LANTUS 100 UNIT/ML SOLN 60 units sq q hs INSULIN GLARGINE 08837308650 No Longer Active CRYSTAL Suarez Active ALBUTEROL SULFATE (2.5 MG/3ML) 0.083% NEBU 1 neb tid and prn cough ALBUTEROL SULFATE (2.5 MG/3ML) 0.083% NEBU 987999 ALBUTEROL SULFATE Inactive ZYPREXA 15 MG TABS Take 1 tablet by mouth daily ZYPREXA 15 MG TABS 912157 OLANZAPINE Inactive VERAPAMIL HCL CR 120 MG TAB CR 1 qPM VERAPAMIL HCL CR 120 MG TAB CR VERAPAMIL HCL Inactive ZYPREXA 10 MG TABS Take one by mouth daily ZYPREXA 10 MG TABS 187487 OLANZAPINE Inactive TOPROL XL 100 MG [id number] 1 @ HS TOPROL XL 100 MG CN03B-ZDU METOPROLOL SUCCINATE Inactive LEVEMIR 100 UNIT/ML SOLN 90 units SQ qHS LEVEMIR 100 UNIT/ML SOLN INSULIN DETEMIR Inactive PROMETHAZINE-CODEINE 6.25-10 MG/5ML SYRP 1 tsp po q 6 hours prn cough PROMETHAZINE-CODEINE 6.25-10 MG/5ML SYRP 297545 PROMETHAZINE- CODEINE Inactive GUAIFENESIN 600 MG PD44X-CWN 1 tablet by mouth twice daily if needed for cough GUAIFENESIN 600 MG [id number]-AHT GUAIFENESIN Inactive ALBUTEROL SULFATE 0.083 % NEBU SOLN one vial per nebulizer TID and PRN cough/ soa ALBUTEROL SULFATE 0.083 % NEBU SOLN 753497 ALBUTEROL SULFATE Inactive ZYPREXA 5 MG TABS take one tablet by mouth every evening ZYPREXA 5 MG TABS 577650 OLANZAPINE Inactive HYDROCODONE-ACETAMINOPHEN 5-325 MG TABS take one tablet by mouth every four hours as needed for pain HYDROCODONE-ACETAMINOPHEN 5-325 MG TABS 757962 HYDROCODONE-ACETAMINOPHEN Inactive BACTROBAN 2 % CREAM apply to ear and nose twice daily BACTROBAN 2 % CREAM 721682 MUPIROCIN CALCIUM Inactive CYCLOBENZAPRINE HCL 10 MG TABS 1/2 tablet by mouth every 8 hours as needed for muscle spasms CYCLOBENZAPRINE HCL 10 MG TABS 242518 CYCLOBENZAPRINE HCL Inactive NAVANE 10 MG CAPS 1/2 tablet twice a day NAVANE 10 MG CAPS THIOTHIXENE Inactive DOXEPIN HCL 10 MG CAPS Take 1 tablet by mouth daily DOXEPIN HCL 10 MG CAPS 9103621 DOXEPIN HCL Inactive HYDROCODONE-ACETAMINOPHEN 7.5-325 MG TABS 1 four times a day as needed for pain HYDROCODONE-ACETAMINOPHEN 7.5-325 MG TABS 319012 HYDROCODONE-ACETAMINOPHEN Inactive NIACIN CR 500 MG CR-TABS 2 qHS NIACIN CR 500 MG CR- TABS NIACIN Inactive ORPHENADRINE CITRATE ER 100 MG [id number] 1 every 12 hr. as needed ORPHENADRINE CITRATE ER 100 MG AM99B-IAV ORPHENADRINE CITRATE Inactive ACETAMINOPHEN 500 MG TABS 2 Q 6 hr. PRN ACETAMINOPHEN 500 MG TABS 208125 ACETAMINOPHEN Inactive SAPHRIS 5 MG SUBL by mouth twice a day SAPHRIS 5 MG SUBL ASENAPINE MALEATE Inactive NIACIN ER 500 MG CR-TABS 4 qHS (for triglycerides) NIACIN ER 500 MG CR-TABS NIACIN Inactive IBUPROFEN 200 MG TABS 1 Q 6 hr. PRN IBUPROFEN 200 MG TABS 960108 IBUPROFEN Inactive FLUTICASONE PROPIONATE 50 MCG/ACT SUSP 2 sprays each nostril qDay x 30 days FLUTICASONE PROPIONATE 50 MCG/ACT SUSP 764247 FLUTICASONE PROPIONATE Inactive EQL TRUETEST TEST STRP Test blood sugar TID EQL TRUETEST TEST STRP GLUCOSE BLOOD Inactive TERESE CONTOUR TEST STRP monitor blood sugars 3x/day TERESE CONTOUR TEST STRP GLUCOSE BLOOD Inactive DETROL LA 4 MG [id number] Take 1 tablet by mouth daily DETROL LA 4 MG MA69A-PAU TOLTERODINE TARTRATE Inactive ZYPREXA 7.5 MG TABS 1 at HS ZYPREXA 7.5 MG TABS 404948 OLANZAPINE Inactive THIOTHIXENE 5 MG CAPS by mouth twice a day THIOTHIXENE 5 MG CAPS 504534 THIOTHIXENE Inactive UROXATRAL 10 MG AM11U-AYS Take 1 tablet by mouth daily UROXATRAL 10 MG MN29M-JKH ALFUZOSIN HCL Inactive ACYCLOVIR 400 MG ORAL TABS 1 pill three times daily x 5 days, for cold sore outbreak ACYCLOVIR 400 MG ORAL TABS 485138 ACYCLOVIR Inactive TRUETEST TEST STRP check sugars 4x/day TRUETEST TEST STRP GLUCOSE BLOOD Inactive HUMALOG 100 UNIT/ML SOLN Take 20 units with breakfast, 10u with lunch and suppetr. HUMALOG 100 UNIT/ML SOLN INSULIN LISPRO ( HUMAN) Inactive CYCLOBENZAPRINE HCL 10 MG TABS 1 tablet by mouth three times daily, scheduled CYCLOBENZAPRINE HCL 10 MG TABS 513030 CYCLOBENZAPRINE HCL Inactive ACCU-CHEK ROSA INVITR STRP use strips with device to check blood sugars 3 times daily ACCU-CHEK ROSA INVITR STRP GLUCOSE BLOOD Inactive ACCU-CHEK ROSA UZMA Use device to check blood sugars ACCU-CHEK ROSA UZMA BLOOD GLUCOSE MONITORING SUPPL Inactive CEFDINIR 300 MG CAPS by mouth twice a day CEFDINIR 300 MG CAPS 063184 CEFDINIR Inactive AZITHROMYCIN 500 MG SOLR 1 po q day AZITHROMYCIN 500 MG SOLR 232873 AZITHROMYCIN Inactive AMOXICILLIN 500 MG CAPS 2 po BID x 10 days AMOXICILLIN 500 MG CAPS 259294 AMOXICILLIN Inactive PENICILLIN V POTASSIUM 500 MG TABS 1 pill by mouth three times daily PENICILLIN V POTASSIUM 500 MG TABS 236666 PENICILLIN V POTASSIUM Inactive Immunizations Vaccine Administration [...] Fluvirin, Fluarix, Agriflu(>=18 yo)) Fluzone (>3 yrs.) [[id number]] Influenza, seasonal, injectable pneumococcal immunization administered Pneumovax [...] HGBA1C - Chemistry sodium, serum 130 mmol/L 081-750 9693/06/09 potassium, serum 4.0 mmol/L 3.5-5.2 chloride, serum 92 mmol/L 98-107 carbon dioxide, venous blood 22.1 mmol/L 21.0-32.0 blood glucose 60 mg/dL 65-110 calcium, serum 9.5 mg/dL 8.5-10.1 urea nitrogen, blood 14 mg/dL 7-18 creatinine, serum 1.30 mg/dL 0.60-1.30 hemoglobin A1C, blood, as % of total hemoglobin 6.0 % 4.3-6.0 sodium, serum 131 mmol/L 179-930 8661/12/30 potassium, serum 5.0 mmol/L 3.5-5.2 chloride, serum 95 mmol/L 98-107 carbon dioxide, venous blood 26.7 mmol/L 21.0-32.0 blood glucose 112 mg/dL 65-110 calcium, serum 9.2 mg/dL 8.5-10.1 urea nitrogen, blood 12 mg/dL 7-18 creatinine, serum 1.10 mg/dL 0.60-1.30 hemoglobin A1C, blood, as % of total hemoglobin 5.8 % 4.3-6.0 Lab Report: Basic Metabolic Panel, HGBA1C, MICROALBUMIN - Chemistry sodium, serum 137 mmol/L 020-206 5009/05/19 potassium, serum 5.2 mmol/L 3.5-5.2 chloride, serum [...] microalbumin, urine 10 0-19 Lab Report: Chlamydia/GC APTIMA/97052, HIV-1/2 Agn/Dominga/93831, RPR (DX) W ... - Chemistry hepatitis B surface antigen NON-REACTIVE NON-REACTIVE Lab Report: Chlamydia/GC APTIMA/80264, HIV-1/2 Agn/Dominga/14761, RPR (DX) W ... - Lab chlamydia DNA probe NOT DETECTED NOT DETECTED Lab Report: Chlamydia/GC APTIMA/16398, HIV-1/2 Agn/Dominga/55212, RPR (DX) W ... - Microbiology Neisseria gonorrhoeae DNA probe NOT DETECTED NOT DETECTED Lab Report: Chlamydia/GC APTIMA/91438, HIV-1/2 Agn/Dominga/68791, RPR (DX) W ... - Serology rapid plasma reagin antibody titer NON-REACTIVE NON-REACTIVE Lab Report: Comp. Metabolic Panel - Chemistry sodium, serum 127 mmol/L 760-644 8384/10/27 potassium, serum 4.1 mmol/L 3.5-5.2 chloride, serum [...] mg/g mg/g{creat} 0-29 cholesterol, serum 131 mg/dL 841-959 2160/06/03 triglyceride, serum, fasting 383 mg/dL 30-200 HDL [...] mg/dL Encounters Code Encounter Date Provider Facility CPT-45050 Level 3 Est. Patient 09:34:56 CDT Alina Castaneda MD PhD [facility] CPT-30278 Level 3 Est. Patient 21:40:19 CDT Mima Erazo APRN [facility] CPT-20713 Level 3 Est. Patient 09:26:40 CDT Marvel MARROQUIN [facility] CPT-00958 Level 3 Est. Patient 12:36:43 CDT Vanessa Hickey MD [facility]-73899 Level 3 Est. Patient 12:57:49 CDT Vanessa Hickey MD [facility]-34631 Level 3 Est. Patient 00:28:25 CDT Alina Castaneda MD [facility]67895 Level 2 Est. Patient 12:52:14 CDT Alina Castaneda MD [facility]81629 Level 3 Est. Patient 11:51:18 CENTRIFUGAL CHILLER TECHNICIAN Alina Castaneda MD [facility]-56725 Level 3 Est. Patient 10:09:22 CENTRIFUGAL CHILLER TECHNICIAN Alina Castaneda MD [facility]58571 Level 3 Est. Patient 14:36:26 CENTRIFUGAL CHILLER TECHNICIAN Marvel [facility] [place]-86324 Level 3 Est. Patient 13:34:47 CENTRIFUGAL CHILLER TECHNICIAN Alina Castaneda MD [facility]49403 Level 3 Est. Patient 19:52:08 CENTRIFUGAL CHILLER TECHNICIAN Alina Castaneda MD [facility]49043 Level 3 Est. Patient 10:01:51 CENTRIFUGAL CHILLER TECHNICIAN Marvel [facility]-24623 Level 3 Est. Patient 21:54:06 CDT Vanessa Hickey MD [facility]-28887 Level 3 Est. Patient 08:54:46 CDT Alina Castaneda MD [facility]94843 Level 3 Est. Patient 09:32:11 CDT Marvel [facility]-32428 Level 3 Est. Patient 12:02:49 CDT Alina Castaneda MD [facility]37762 Level 3 Est. Patient 19:17:33 CDT Alina Castaneda MD [facility]32900 Level 3 Est. Patient 13:19:10 CDT Marvel [facility]-94291 Level 3 Est. Patient 08:20:05 CDT Alina Castaneda MD [facility]-87630 Level 3 Est. Patient 15:17:18 CDT Alina Castaneda MD [facility]-88866 Level 3 Est. Patient 14:25:36 CENTRIFUGAL CHILLER TECHNICIAN Marvel [facility]-53729 Level 3 Est. Patient 10:09:15 CENTRIFUGAL CHILLER TECHNICIAN Marvel [facility]-49977 Level 3 Est. Patient 21:28:43 CDT Alina Castaneda MD [facility]-35299 Level 3 Est. Patient 15:20:11 [facility] Est[facility] Patient 19:08:12 CDT Alina Castaneda MD [facility]-53502 Level 3 Est. Patient 15:06:39 CDT Marvel [facility]-69620 Level 4 Est. Patient 17:48:15 CDT Alina Castaneda MD [facility]-06151 Level 3 Est. Patient 14:53:49 CDT Alina Castaneda MD [facility]-37543 Level 3 Est. Patient 09:35:16 CDT Alina Castaneda MD [facility]-77904 Level 3 Est. Patient 12:23:22 CDT Alina Castaneda MD [facility]-56808 Level 3 Est. Patient 16:19:15 CDT Alina Castaneda MD [facility]99347 Level 3 Est. Patient 21:39:56 CENTRIFUGAL CHILLER TECHNICIAN Alina Castaneda MD [facility]-92428 Level 4 Est. Patient 14:12:56 CENTRIFUGAL CHILLER TECHNICIAN Alina Castaneda MD [facility]-37577 Level 2 Est. Patient 15:34:57 CENTRIFUGAL CHILLER TECHNICIAN Alina Castaneda MD [facility]-82028 Level 3 Est. Patient 12:17:04 CENTRIFUGAL CHILLER TECHNICIAN Alina Castaneda MD [facility]-55983 Level 3 Est. Patient 09:18:18 CENTRIFUGAL CHILLER TECHNICIAN Marvel [facility]-43117 Level 2 Est. Patient 21:50:24 CDT Alina Castaneda MD [facility]-41087 Level 3 Est. Patient 09:17:28 CDT Marvel [facility]-88700 Level 4 Est. Patient 18:54:02 CDT Alina Castaneda MD [facility]-76686 Level 3 Est. Patient 10:47:10 CDT Alina Castaneda MD [facility]-45345 Level 3 Est. Patient 09:22:20 CDT Marvel [facility] [place]-88967 Level 3 Est. Patient 16:39:43 CDT Marvel [facility]-49242 Level 3 Est. Patient 16:05:16 CDT Alina Castaneda MD [facility]91572 Level 3 Est. Patient 00:29:15 CDT Alina Castaneda MD [facility]82612 Level 3 Est. Patient 10:49:22 CENTRIFUGAL CHILLER TECHNICIAN Marvel [facility]76999 Level 3 Est. Patient 21:30:19 CENTRIFUGAL CHILLER TECHNICIAN Alina Castaneda MD PhD [facility] CPT-20196 Level 4 Est. Patient 17:04:11 CENTRIFUGAL CHILLER TECHNICIAN [place] [facility] CPT-68429 Level 3 Est. Patient 15:34:11 CENTRIFUGAL CHILLER TECHNICIAN [facility] CPT-69275 Level 2 Est. Patient 12:51:58 CENTRIFUGAL CHILLER TECHNICIAN Alina Castaneda MD PhD [facility] CPT-55606 Level 3 Est. Patient 13:20:01 CENTRIFUGAL CHILLER TECHNICIAN Alina Castaneda MD [facility] CPT-74328 Level 3 Est. Patient 09:23:35 CDT Alina Castaneda MD PhD [facility] Procedures Code Procedure Name Date Entry Date Standard Description CPT-96699 Bladder Scan 12:36:44 CDT CPT-43638 Bladder Scan 21:54:06 CDT CPT-G0008 Administration of Influenza Virus Vaccine 13:05:26 CDT CPT-44887 Fluzone Quadrivalent Intramuscular Suspension 0.5 ML 13: 05:26 CDT CPT-77772 Administration single or combination vaccine inc oral 11 :49:51 CDT CPT-27012 Pneumovax 11:49:51 CDT CPT-59591 Ribs unilateral 2V 12:37:22 CENTRIFUGAL CHILLER TECHNICIAN CPT-46231 Chest 2V Frontal and Lat 17:15:26 CDT CPT-52616 Abx/Therapy Injection 18:54:02 CDT CPT-J0696 Rocephin 1000 mg (Ceftriaxone) 16:00:32 CDT CPT-33341 Chest 2V Frontal and Lat 15:26:45 CDT CPT-68699 Chest 2V Frontal and Lat 10:23:27 CDT CPT-99272 Venipuncture Draw Fee 10:11:00 CDT CPT-05946 Administration single or combination vaccine inc oral 11 :56:38 CDT CPT-79467 Influenza split virus > age 3 11:56:38 CDT CPT-62326 Venipuncture Draw Fee 08:49:54 CENTRIFUGAL CHILLER TECHNICIAN CPT-25578 EKG Trac and Interp 17:54:19 CENTRIFUGAL CHILLER TECHNICIAN
--- OUTSIDE RECORDS SUMMARY | 2018-07-02 16:03 | XMS REPORT | Clinical Summary ---
Author Author Admin, TERELL Organization [facility] Address Unknown Phone Unavailable Allergies, Adverse 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 Erazo RAMP MANAGER Benign paroxysmal positional vertigo Vertigo, benign paroxysmal position 386.11 Inactive Mima Erazo RAMP MANAGER Benign paroxysmal positional vertigo High-risk sexual behavior V69.2 Active Alina Castaneda MD PhD High-risk sexual behavior Erectile dysfunction 302.72 Active Alina Castaneda MD PhD Psychosexual dysfunction with inhibited sexual excitement Constipation 564.00 Active Alina Castaneda MD PhD Constipation, unspecified Skin lesion 709.9 Active Alina Castaneda MD PhD Unspecified disorder of skin and subcutaneous tissue Malaise and fatigue 780.79 Active Cherelle Speaks RAMP MANAGER Other malaise and fatigue Diarrhea 787.91 Active Cherelle Speaks RAMP MANAGER Diarrhea PHARYNGITIS 462 Active Cherelle Speaks RAMP MANAGER Acute pharyngitis Colitis 558.9 Active Mima Erazo RAMP MANAGER Other and unspecified noninfectious gastroenteritis and colitis DIABETES, TYPE 2 ICD-250.00 Inactive Alina Castaneda MD PhD URI ICD-465.9 Inactive Alina Castaneda MD PhD HYPERTENSION ICD-401.9 Inactive Alina Castaneda MD PhD WOUND, OPEN, NOSE ICD-873.20 Inactive Alina Castaneda MD PhD FATIGUE ICD-780.79 Inactive Alina Castaneda MD PhD DIABETES MELLITUS, TYPE II, UNCONTROLLED ICD-250.02 Inactive Marvel Charles HOT METAL CHARGER UNSPECIFIED TACHYCARDIA ICD-785.0 Inactive Alina Castaneda MD PhD ABNORMAL HEART RHYTHMS ICD-427.9 Inactive Alina Castaneda MD PhD PROBLEMS RELATED TO HIGH-RISK SEXUAL BEHAVIOR ICD-V69.2 Inactive Alina Castaneda MD PhD CHEST COUGH ICD-786.2 Inactive Alina Castaneda MD PhD SINUSITIS, ACUTE ICD-461.9 Inactive Alina Castaneda MD PhD BRONCHITIS, ACUTE ICD-466.0 Inactive Alina Castaneda MD PhD CHEST PAIN ICD-786.50 Inactive Alina Castaneda MD PhD FH STROKE ICD-V17.1 Inactive Marvel MARROQUIN SKIN LESION ICD-709.9 Roro Castaneda MD PhD SINUSITIS, ACUTE ICD-461.9 Roro Castaneda MD PhD DIABETIC HYPOGLYCEMIA, TYPE II ICD-250.80 Roro 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 Roro Castaneda MD PhD PNEUMONIA, ORGANISM UNSPECIFIED ICD-486 Roro Castaneda MD PhD RIB PAIN, RIGHT SIDED ICD-786.50 Roro Castaneda MD PhD Diabetes mellitus, type II, uncontrolled ICD-250.02 Roro Castaneda MD PhD SPECIAL SCREENING FOR MALIGNANT NEOPLASM OF PROSTATE ICD-V76.44 Roro Castaneda MD PhD Confusion ICD-298.9 Inactive [...] SQ each evening, for diabetes INSULIN DETEMIR 75405483451 Active Salina ROJAS Active TRUEPLUS LANCETS 30G MISC 3 a day LANCETS 93994668483 Active Marvel MARROQUIN Active TOLTERODINE TARTRATE 2 MG TABS 1 pill twice daily, for bladder TOLTERODINE TARTRATE 75314772859 No Longer Active Vanessa Hickey MD Active AMITIZA 24 MCG ORAL CAPS Take one capsule BID for constipation. LUBIPROSTONE 73010081895 No Longer Active Vanessa Hickey MD Active LOMOTIL 2.5-0.025 MG ORAL TABS take 1-2 tabs PO after each stool, no more than 8 in 24 hours DIPHENOXYLATE-ATROPINE 06969060063 Active Grace ROJAS Active FLUVOXAMINE MALEATE 100 MG ORAL TABS take one tab every AM et HS, and take 1/ 2 tab at noon FLUVOXAMINE MALEATE 39553842834 Active Grace ROJAS Active METOPROLOL SUCCINATE 100 MG AG69I-NHM 1 by mouth daily for blood pressure METOPROLOL SUCCINATE 34396804780 No Longer Active Grace Nelsonb RMA Active METFORMIN HCL ER 500 MG GH76D-IME Take three tablets by mouth everyday METFORMIN HCL 66828739588 No Longer Active Grace Azam RMA Active LOVAZA 1 GM CAPS 4 daily (for triglycerides) OMEGA-3- ACID ETHYL ESTERS 33462092967 No Longer Active Grace Azam RMA Active TRAZODONE HCL 100 MG ORAL TABS 1 tab by mouth for sleep TRAZODONE HCL 65438781056 No Longer Active Grace Azam RMA Active NOVOFINE 32G X 6 MM MISC use one four times per day INSULIN PEN NEEDLE 47402207622 No Longer Active Grace Azam RMA Active BACTROBAN 2 % CREAM Apply to affected area BID for up to 10 days MUPIROCIN CALCIUM 66685141863 No Longer Active Grace Azam RMA Active ZOFRAN 4 MG TABS 1 po q4hr PRN Nausea ONDANSETRON HCL 90989251833 Active Salina Han RMA Active KEFLEX 500 MG CAP 1 po BID x 7 days CEPHALEXIN 21281837133 No Longer Active Cherelle Speaks RAMP MANAGER Active FLUVOXAMINE MALEATE 100 MG TABS Take one (1) tablet by mouth am, 1/2 at noon FLUVOXAMINE MALEATE 99446595663 No Longer Active Mima Erazo RAMP MANAGER Active CORICIDIN HBP CONGESTION/COUGH 10-200 MG ORAL CAPS Take as directed on box as needed for cold/flu symptoms DEXTROMETHORPHAN-GUAIFENESIN 23491655236 Active Cherelle Speaks RAMP MANAGER Active OMEGA-3 300 MG ORAL CAPS 4 caps by mouth daily OMEGA-3 FATTY ACIDS 84745121172 Active Cherelle Speaks RAMP MANAGER Active FLUVOXAMINE MALEATE 100 MG ORAL TABS Take 1/2 tab at noon FLUVOXAMINE MALEATE 52372561778 No Longer Active Cherelle Avila RAMP MANAGER Active [facility] LUBRICANT EYE DROPS 0.4-0.3 % OPHTH SOLN POLYETHYL GLYCOL-PROPYL GLYCOL 63091849705 Active Mima Erazo RAMP MANAGER Active CLONAZEPAM 1 MG TABS 1/2 pill by mouth three times daily CLONAZEPAM 02610689336 Active Alina Castaneda MD PhD Active MIRALAX POWD 17g by mouth daily, for constipation POLYETHYLENE GLYCOL 3350 18683136509 Active Alina Castaneda MD PhD Active HYDROCODONE-ACETAMINOPHEN 5-325 MG TABS 2 tabs by mouth three times daily for pain HYDROCODONE-ACETAMINOPHEN 53600101063 Active Mima Erazo RAMP MANAGER Active HUMALOG KWIKPEN 100 UNIT/ML SC SOPN 20 units with breakfast, 10 units with lunch, 10 units with dinner, for diabetes INSULIN LISPRO (HUMAN ) 04684654370 Active Alina Castaneda MD PhD Active LATUDA 120 MG ORAL TABS 1 pill by mouth nightly LURASIDONE HCL 12290361494 Active Alina Castaneda MD PhD Active COLACE 100 MG CAPS 1 pill by mouth twice daily, for constipation DOCUSATE SODIUM 53759948388 Active Alina Castaneda MD PhD Active TRUETEST TEST STRP check blood sugars 3x/day GLUCOSE BLOOD 04306611440 Active Marvel Thurstonari HOT METAL CHARGER Active ACCU-CHEK ROSA UZMA Use device to check blood sugars BLOOD GLUCOSE MONITORING SUPPL 01894316080 No Longer Active Marvel Mackenzieglari LOPEZ Active ACCU-CHEK ROSA INVITR STRP use strips with device to check blood sugars 3 times daily GLUCOSE BLOOD 55803058517 No Longer Active Marvel MENDOZAP Active VERAPAMIL HCL ER 180 MG ORAL CR-TABS 1 pill by mouth twice daily, for migraine prevention VERAPAMIL HCL 31386808702 Active Alina Castaneda MD PhD Active CYCLOBENZAPRINE HCL 10 MG TABS 1 tablet by mouth three times daily, scheduled CYCLOBENZAPRINE HCL 83029618246 No Longer Active Alina Castaneda MD PhD Active HUMALOG 100 UNIT/ML SOLN Take 20 units with breakfast, 10u with lunch and suppetr. INSULIN LISPRO (HUMAN) 28654993232 No Longer Active Alina Castaneda MD PhD Active TRUETEST TEST STRP check sugars 4x/day GLUCOSE BLOOD 32487195020 No Longer Active Alina Castaneda MD PhD Active MORPHINE SULFATE 30 MG TABS 1 pill by mouth twice daily, for pain MORPHINE SULFATE 45533412831 Active Mima Erazo RAMP MANAGER Active ACYCLOVIR 400 MG ORAL TABS 1 pill three times daily x 5 days, for cold sore outbreak ACYCLOVIR 82541085084 No Longer Active Alina Castaneda MD PhD Active PENICILLIN V POTASSIUM 500 MG TABS 1 pill by mouth three times daily PENICILLIN V POTASSIUM 26436863157 No Longer Active Alina Castaneda MD PhD Active UROXATRAL 10 MG NV13N-CCS Take 1 tablet by mouth daily ALFUZOSIN HCL 47686876185 No Longer Active Alina Castaneda MD PhD Active THIOTHIXENE 5 MG CAPS by mouth twice a day THIOTHIXENE 06964438371 No Longer Active Alina Castaneda MD PhD Active ZYPREXA 7.5 MG TABS 1 at HS OLANZAPINE 95983997935 No Longer Active Alina Castaneda MD PhD Active BD INSULIN SYRINGE 28G X 1/2" 1 ML MISC 1 four times per day INSULIN SYRINGE-NEEDLE U-100 96341512863 Active [facility] Gurdeepglestela [facility] Active DETROL LA 4 MG NB93L-CXX Take 1 tablet by mouth daily TOLTERODINE TARTRATE 99265382500 No Longer Active Alina Castaneda MD PhD Active TERESE CONTOUR TEST STRP monitor blood sugars 3x/day GLUCOSE BLOOD 64864619809 No Longer Active Alina Castaneda MD PhD Active EQL TRUETEST TEST STRP Test blood sugar TID GLUCOSE BLOOD 31253363087 No Longer Active Alina Castaneda MD PhD Active FLUTICASONE PROPIONATE 50 MCG/ACT SUSP 2 sprays each nostril qDay x 30 days FLUTICASONE PROPIONATE 37637582041 No Longer Active Alina Castaneda MD PhD Active IBUPROFEN 200 MG TABS 1 Q 6 hr. PRN IBUPROFEN 11170763229 No Longer Active Alina Castaneda MD PhD Active NIACIN ER 500 MG CR-TABS 4 qHS (for triglycerides) NIACIN 93436958504 No Longer Active Alina Castaneda MD PhD Active ALFUZOSIN HCL ER 10 MG SL81S-NRX 1 tablet daily ALFUZOSIN HCL 06282612518 Active Vanessa Hickey MD Active SAPHRIS 5 MG SUBL by mouth twice a day ASENAPINE MALEATE 34543977010 No Longer Active Maliheh Ziglari HOT METAL CHARGER Active ACETAMINOPHEN 500 MG TABS 2 Q 6 hr. PRN ACETAMINOPHEN 56448585769 No Longer Active Maliheh Ziglari HOT METAL CHARGER Active ORPHENADRINE CITRATE ER 100 MG AT77G-DTX 1 every 12 hr. as needed ORPHENADRINE CITRATE 69985805877 No Longer Active Alina Castaneda MD PhD Active NIACIN CR 500 MG CR-TABS 2 qHS NIACIN 52562297028 No Longer Active Alina Castaneda MD PhD Active AMOXICILLIN 500 MG CAPS 2 po BID x 10 days AMOXICILLIN 46073372710 No Longer Active Alina Castaneda MD PhD Active HYDROCODONE-ACETAMINOPHEN 7.5-325 MG TABS 1 four times a day as needed for pain HYDROCODONE-ACETAMINOPHEN 91432763728 No Longer Active Alina Castaneda MD PhD Active DOXEPIN HCL 10 MG CAPS Take 1 tablet by mouth daily DOXEPIN HCL 76655739520 No Longer Active Salina ROJAS Active NAVANE 10 MG CAPS 1/2 tablet twice a day THIOTHIXENE No Longer Active Salina ROBBINSA Active CYCLOBENZAPRINE HCL 10 MG TABS 1/2 tablet by mouth every 8 hours as needed for muscle spasms CYCLOBENZAPRINE HCL 52483074848 No Longer Active Alina Castaneda MD PhD Active BACTROBAN 2 % CREAM apply to ear and nose twice daily MUPIROCIN CALCIUM 88612346880 No Longer Active Alina Castaneda MD PhD Active HYDROCODONE-ACETAMINOPHEN 5-325 MG TABS take one tablet by mouth every four hours as needed for pain HYDROCODONE-ACETAMINOPHEN 74612575421 No Longer Active Alina Castaneda MD PhD Active ZOLPIDEM TARTRATE 10 MG TABS take at bedtime ZOLPIDEM TARTRATE 36451255104 Active Alina Castaneda MD PhD Active ZYPREXA 5 MG TABS take one tablet by mouth every evening OLANZAPINE 81776229182 No Longer Active Alina Castaneda MD PhD Active ALBUTEROL SULFATE 0.083 % NEBU SOLN one vial per nebulizer TID and PRN cough/ soa ALBUTEROL SULFATE 30439744867 No Longer Active Alina Castaneda MD PhD Active GUAIFENESIN 600 MG ZA12X-WIB 1 tablet by mouth twice daily if needed for cough GUAIFENESIN 11895766657 No Longer Active Marvel MARROQUIN Active AZITHROMYCIN 500 MG SOLR 1 po q day AZITHROMYCIN 90453865511 No Longer Active Alina Castaneda MD PhD Active PROMETHAZINE-CODEINE 6.25-10 MG/5ML SYRP 1 tsp po q 6 hours prn cough PROMETHAZINE-CODEINE 58690479513 No Longer Active Alina Castaneda MD PhD Active CEFDINIR 300 MG CAPS by mouth twice a day CEFDINIR 21088666962 No Longer Active Alina Castaneda MD PhD Active METFORMIN HCL 500 MG HN00R-OEO Take 3 tablets by mouth everyday METFORMIN HCL 53333977724 No Longer Active Alina Castaneda MD PhD Active LEVEMIR 100 UNIT/ML SOLN 90 units SQ qHS INSULIN DETEMIR 66052439437 No Longer Active Marvel MARROQUIN Active TOPROL XL 100 MG AV04T-BNN 1 @ HS METOPROLOL SUCCINATE 46996516807 No Longer Active Marvel MARROQUIN Active ALLOPURINOL 300 MG TABS Take one by mouth daily ALLOPURINOL 12081971296 Active Alina Castaneda MD PhD Active ZYPREXA 10 MG TABS Take one by mouth daily OLANZAPINE 71877213114 No Longer Active Alina Castaneda MD PhD Active NOVOLOG 100 UNIT/ML SOLN 40 units with every meal INSULIN ASPART 71050862810 No Longer Active Alina Castaneda MD PhD Active VERAPAMIL HCL CR 120 MG TAB CR 1 qPM VERAPAMIL HCL 46922604870 No Longer Active Salina ROJAS Active ZYPREXA 15 MG TABS Take 1 tablet by mouth daily OLANZAPINE 45279120902 No Longer Active Marvel MARROQUIN Active LISINOPRIL 20 MG TABS 1 BID LISINOPRIL 96837567345 Active Alina Castaneda MD PhD Active ALBUTEROL SULFATE (2.5 MG/3ML) 0.083% NEBU 1 neb tid and prn cough ALBUTEROL SULFATE 83076258498 No Longer Active Alina Castaneda MD PhD Active TRAVATAN Z 0.004 % SOLN 1 gtt each eye daily TRAVOPROST 02835560014 Active CRYSTAL Suarez Active LANTUS 100 UNIT/ML SOLN 60 units sq q hs INSULIN GLARGINE 98163603492 No Longer Active CRYSTAL Suarez Active ALBUTEROL SULFATE (2.5 MG/3ML) 0.083% NEBU 1 neb tid and prn cough ALBUTEROL SULFATE (2.5 MG/3ML) 0.083% NEBU 830492 ALBUTEROL SULFATE Inactive ZYPREXA 15 MG TABS Take 1 tablet by mouth daily ZYPREXA 15 MG TABS 867029 OLANZAPINE Inactive VERAPAMIL HCL CR 120 MG TAB CR 1 qPM VERAPAMIL HCL CR 120 MG TAB CR VERAPAMIL HCL Inactive ZYPREXA 10 MG TABS Take one by mouth daily ZYPREXA 10 MG TABS 074382 OLANZAPINE Inactive TOPROL XL 100 MG OP20N-WUC 1 @ HS TOPROL XL 100 MG WT49A-OPX METOPROLOL SUCCINATE Inactive LEVEMIR 100 UNIT/ML SOLN 90 units SQ qHS LEVEMIR 100 UNIT/ML SOLN INSULIN DETEMIR Inactive PROMETHAZINE-CODEINE 6.25-10 MG/5ML SYRP 1 tsp po q 6 hours prn cough PROMETHAZINE-CODEINE 6.25-10 MG/5ML SYRP 593894 PROMETHAZINE- CODEINE Inactive GUAIFENESIN 600 MG SA15L-AAS 1 tablet by mouth twice daily if needed for cough GUAIFENESIN 600 MG IR80E-UMG GUAIFENESIN Inactive ALBUTEROL SULFATE 0.083 % NEBU SOLN one vial per nebulizer TID and PRN cough/ soa ALBUTEROL SULFATE 0.083 % NEBU SOLN 911234 ALBUTEROL SULFATE Inactive ZYPREXA 5 MG TABS take one tablet by mouth every evening ZYPREXA 5 MG TABS 053002 OLANZAPINE Inactive HYDROCODONE-ACETAMINOPHEN 5-325 MG TABS take one tablet by mouth every four hours as needed for pain HYDROCODONE-ACETAMINOPHEN 5-325 MG TABS 919003 HYDROCODONE-ACETAMINOPHEN Inactive BACTROBAN 2 % CREAM apply to ear and nose twice daily BACTROBAN 2 % CREAM 638529 MUPIROCIN CALCIUM Inactive CYCLOBENZAPRINE HCL 10 MG TABS 1/2 tablet by mouth every 8 hours as needed for muscle spasms CYCLOBENZAPRINE HCL 10 MG TABS 173600 CYCLOBENZAPRINE HCL Inactive NAVANE 10 MG CAPS 1/2 tablet twice a day NAVANE 10 MG CAPS THIOTHIXENE Inactive DOXEPIN HCL 10 MG CAPS Take 1 tablet by mouth daily DOXEPIN HCL 10 MG CAPS 9259883 DOXEPIN HCL Inactive HYDROCODONE-ACETAMINOPHEN 7.5-325 MG TABS 1 four times a day as needed for pain HYDROCODONE-ACETAMINOPHEN 7.5-325 MG TABS 138684 HYDROCODONE-ACETAMINOPHEN Inactive NIACIN CR 500 MG CR-TABS 2 qHS NIACIN CR 500 MG CR- TABS NIACIN Inactive ORPHENADRINE CITRATE ER 100 MG QZ85D-YUY 1 every 12 hr. as needed ORPHENADRINE CITRATE ER 100 MG XN98H-SPX ORPHENADRINE CITRATE Inactive ACETAMINOPHEN 500 MG TABS 2 Q 6 hr. PRN ACETAMINOPHEN 500 MG TABS 506264 ACETAMINOPHEN Inactive SAPHRIS 5 MG SUBL by mouth twice a day SAPHRIS 5 MG SUBL ASENAPINE MALEATE Inactive NIACIN ER 500 MG CR-TABS 4 qHS (for triglycerides) NIACIN ER 500 MG CR-TABS NIACIN Inactive IBUPROFEN 200 MG TABS 1 Q 6 hr. PRN IBUPROFEN 200 MG TABS 197326 IBUPROFEN Inactive FLUTICASONE PROPIONATE 50 MCG/ACT SUSP 2 sprays each nostril qDay x 30 days FLUTICASONE PROPIONATE 50 MCG/ACT SUSP 510090 FLUTICASONE PROPIONATE Inactive EQL TRUETEST TEST STRP Test blood sugar TID EQL TRUETEST TEST STRP GLUCOSE BLOOD Inactive TERESE CONTOUR TEST STRP monitor blood sugars 3x/day TERESE CONTOUR TEST STRP GLUCOSE BLOOD Inactive DETROL LA 4 MG DD02S-AAP Take 1 tablet by mouth daily DETROL LA 4 MG TK10D-AJN TOLTERODINE TARTRATE Inactive ZYPREXA 7.5 MG TABS 1 at HS ZYPREXA 7.5 MG TABS 690611 OLANZAPINE Inactive THIOTHIXENE 5 MG CAPS by mouth twice a day THIOTHIXENE 5 MG CAPS 619671 THIOTHIXENE Inactive UROXATRAL 10 MG BA94S-TXK Take 1 tablet by mouth daily UROXATRAL 10 MG SF95H-MGE ALFUZOSIN HCL Inactive ACYCLOVIR 400 MG ORAL TABS 1 pill three times daily x 5 days, for cold sore outbreak ACYCLOVIR 400 MG ORAL TABS 029795 ACYCLOVIR Inactive TRUETEST TEST STRP check sugars 4x/day TRUETEST TEST STRP GLUCOSE BLOOD Inactive HUMALOG 100 UNIT/ML SOLN Take 20 units with breakfast, 10u with lunch and suppetr. HUMALOG 100 UNIT/ML SOLN INSULIN LISPRO ( HUMAN) Inactive CYCLOBENZAPRINE HCL 10 MG TABS 1 tablet by mouth three times daily, scheduled CYCLOBENZAPRINE HCL 10 MG TABS 866216 CYCLOBENZAPRINE HCL Inactive ACCU-CHEK ROSA INVITR STRP use strips with device to check blood sugars 3 times daily ACCU-CHEK ROSA INVITR STRP GLUCOSE BLOOD Inactive ACCU-CHEK ROSA UZMA Use device to check blood sugars ACCU-CHEK ROSA UZMA BLOOD GLUCOSE MONITORING SUPPL Inactive FLUVOXAMINE MALEATE 100 MG ORAL TABS Take 1/2 tab at noon FLUVOXAMINE MALEATE 100 MG ORAL TABS 438794 FLUVOXAMINE MALEATE Inactive FLUVOXAMINE MALEATE 100 MG TABS Take one (1) tablet by mouth am, 1/2 at noon FLUVOXAMINE MALEATE 100 MG TABS 458549 FLUVOXAMINE MALEATE Inactive BACTROBAN 2 % CREAM Apply to affected area BID for up to 10 days BACTROBAN 2 % CREAM 414186 MUPIROCIN CALCIUM Inactive NOVOFINE 32G X 6 MM MISC use one four times per day NOVOFINE 32G X 6 MM MISC INSULIN PEN NEEDLE Inactive TRAZODONE HCL 100 MG ORAL TABS 1 tab by mouth for sleep TRAZODONE HCL 100 MG ORAL TABS 516311 TRAZODONE HCL Inactive LOVAZA 1 GM CAPS 4 daily (for triglycerides) LOVAZA 1 GM CAPS 046007 RQLQY-4-GXWB ETHYL ESTERS Inactive METFORMIN HCL ER 500 MG WA09H-XVA Take three tablets by mouth everyday METFORMIN HCL ER 500 MG FI42D-APB METFORMIN HCL Inactive METOPROLOL SUCCINATE 100 MG FV36W-UXW 1 by mouth daily for blood pressure METOPROLOL SUCCINATE 100 MG RI89F-BFI METOPROLOL SUCCINATE Inactive AMITIZA 24 MCG ORAL CAPS Take one capsule BID for constipation. AMITIZA 24 MCG ORAL CAPS LUBIPROSTONE Inactive TOLTERODINE TARTRATE 2 MG TABS 1 pill twice daily, for bladder TOLTERODINE TARTRATE 2 MG TABS 421699 TOLTERODINE TARTRATE Inactive CEFDINIR 300 MG CAPS by mouth twice a day CEFDINIR 300 MG CAPS 725981 CEFDINIR Inactive AZITHROMYCIN 500 MG SOLR 1 po q day AZITHROMYCIN 500 MG SOLR 58435704685 AZITHROMYCIN Inactive AMOXICILLIN 500 MG CAPS 2 po BID x 10 days AMOXICILLIN 500 MG CAPS 483794 AMOXICILLIN Inactive PENICILLIN V POTASSIUM 500 MG TABS 1 pill by mouth three times daily PENICILLIN V POTASSIUM 500 MG TABS 235051 PENICILLIN V POTASSIUM Inactive KEFLEX 500 MG CAP 1 po BID x 7 days KEFLEX 500 MG CAP 189491 CEPHALEXIN Inactive Immunizations Vaccine Administration Date Value [...] Fluvirin, Fluarix, Agriflu(>=18 yo)) Fluzone (>3 yrs.) [[id number]] Influenza, seasonal, injectable pneumococcal immunization administered Pneumovax [...] MICROALBUMIN - Chemistry sodium, serum 137 mmol/L 068-590 3959/05/19 potassium, serum 5.2 mmol/L 3.5-5.2 chloride, serum [...] Panel - Chemistry sodium, serum 137 mmol/L 840-490 2552/10/12 potassium, serum 4.8 mmol/L 3.5-5.2 chloride, serum 102 mmol/L 98-107 carbon dioxide, venous blood 27.6 mmol/L 21.0-32.0 blood glucose 168 mg/dL 65-110 calcium, serum 9.0 mg/dL 8.5-10.1 urea nitrogen, blood 15 mg/dL 7-18 creatinine, serum 1.04 mg/dL 0.55-1.30 sodium, serum 138 mmol/L 722-742 3533/11/11 potassium, serum 4.7 mmol/L 3.5-5.2 chloride, serum [...] % 11.6-14.8 platelet count 252 10^3/MM^3 10*3/mm3 342-943 1034/10/12 leukocyte count, blood 5.8 10^3/MM^3 10*3/mm3 4.6-10.2 [...] 240 10^3/MM^3 10*3/mm3 142-424 Lab Report: Chlamydia/GC APTIMA/42361, HIV-1/2 Agn/Dominga/22143, RPR (DX) W ... - Chemistry hepatitis B surface antigen NON-REACTIVE NON-REACTIVE Lab Report: Chlamydia/GC APTIMA/24081, HIV-1/2 Agn/Dominga/01704, RPR (DX) W ... - Lab chlamydia DNA probe NOT DETECTED NOT DETECTED Lab Report: Chlamydia/GC APTIMA/25248, HIV-1/2 Agn/Dominga/40224, RPR (DX) W ... - Microbiology Neisseria gonorrhoeae DNA probe NOT DETECTED NOT DETECTED Lab Report: Chlamydia/GC APTIMA/15088, HIV-1/2 Agn/Dominga/85740, RPR (DX) W ... - Serology rapid plasma reagin antibody titer NON-REACTIVE NON-REACTIVE Lab Report: HGBA1C - Chemistry hemoglobin A1C, blood, as % of total hemoglobin 6.1 % 4.3-6.0 hemoglobin A1C, blood, as % of total hemoglobin 6.3 % 4.3-6.0 Lab Report: Lipid Panel, HEPATIC PANEL, MICROALBUMIN, CBC - Chemistry cholesterol, serum 131 mg/dL 634-467 5200/06/03 triglyceride, serum, fasting 383 mg/dL 30-200 HDL [...] 4.7 mg/dL 2.6-7.2 cholesterol, serum 142 mg/dL 884-726 8264/06/26 triglyceride, serum, fasting 272 mg/dL 30-200 HDL [...] negative Encounters Code Encounter Date Provider Facility CPT-58727 Level 3 Est. 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 Patient 18:43:34 CDT Mima Erazo [facility] [place][note 2] CPT-23487 Level 3 Est. Patient 16:22:09 CDT Cherelle Avila [facility] CPT-61499 Level 4 Est. Patient 17:55:14 CDT Mima Erazo [facility] [place][note 2] CPT-61702 Level 2 Est. Patient 17:13:21 CDT Alina Castaneda MD PhD [facility] CPT-19682 Level 3 Est. Patient 14:46:15 CDT Vanessa Hickey MD [facility] CPT-32450 Level 3 Est. Patient 09:34:56 CDT Alina Castaneda MD [facility]-80337 Level 3 Est. Patient 21:40:19 CDT Mima Erazo [place] [facility] [place]-45398 Level 3 Est. Patient 09:26:40 CDT Marvel Charles [facility]-34809 Level 3 Est. Patient 12:36:43 CDT Vanessa Hickey MD [facility]-99638 Level 3 Est. Patient 12:57:49 CDT Vanessa Hickey MD [facility]-29176 Level 3 Est. Patient 00:28:25 CDT Alina Castaneda MD [facility]43732 Level 2 Est. Patient 12:52:14 CDT Alina Castaneda MD [facility]-29722 Level 3 Est. Patient 11:51:18 SECURITY SYSTEM SALES CONSULTANT Alina Castaneda MD [facility] CPT-08943 Level 3 Est. Patient 10:09:22 SECURITY SYSTEM SALES CONSULTANT Alina Castaneda MD [facility]-84308 Level 3 Est. Patient 14:36:26 SECURITY SYSTEM SALES CONSULTANT Marvel Charles [facility] CPT-48153 Level 3 Est. Patient 13:34:47 SECURITY SYSTEM SALES CONSULTANT Alina Castaneda MD [facility]-02976 Level 3 Est. Patient 19:52:08 SECURITY SYSTEM SALES CONSULTANT Alina Castaneda MD [facility] CPT-98163 Level 3 Est. Patient 10:01:51 SECURITY SYSTEM SALES CONSULTANT Marvel Charles [facility]-95674 Level 3 Est. Patient 21:54:06 CDT Vanessa Hickey MD [facility]-14600 Level 3 Est. Patient 08:54:46 CDT Alina Castaneda MD [facility]-72156 Level 3 Est. Patient 09:32:11 CDT Marvel Charles [facility]-56101 Level 3 Est. Patient 12:02:49 CDT Alina Castaneda MD [facility]-43997 Level 3 Est. Patient 19:17:33 CDT Alina Castaneda MD [facility]-49234 Level 3 Est. Patient 13:19:10 CDT Marvel Gurdeepajayestela [facility]-84852 Level 3 Est. Patient 08:20:05 CDT Alina Castaneda MD [facility]-00852 Level 3 Est. Patient 15:17:18 CDT Alina Castaneda MD [facility]-01674 Level 3 Est. Patient 14:25:36 SECURITY SYSTEM SALES CONSULTANT Marvel Charles [facility]-75757 Level 3 Est. Patient 10:09:15 SECURITY SYSTEM SALES CONSULTANT [facility]44449 Level 3 Est. Patient 21:28:43 CDT Alina Castaneda MD [facility]-24235 Level 3 Est. Patient 15:20:11 CDT Marvel Araceli [facility]-14158 Level 4 Est. Patient 19:08:12 CDT Alina Castaneda MD [facility]-54045 Level 3 Est. Patient 15:06:39 CDT Brookslashondanivia Araceli [facility]-75590 Level 4 Est. Patient 17:48:15 CDT Alina Castaneda MD [facility]-63493 Level 3 Est. Patient 14:53:49 CDT Alina Castaneda MD [facility]-28717 Level 3 Est. Patient 09:35:16 CDT Alina Castaneda MD [facility]-43777 Level 3 Est. Patient 12:23:22 CDT Alina Castaneda MD [facility]27021 Level 3 Est. Patient 16:19:15 CDT Alina Castaneda MD [facility]-19740 Level 3 Est. Patient 21:39:56 SECURITY SYSTEM SALES CONSULTANT Alina Castaneda MD [facility]-[id number] Level 4 Est. Patient 14:12:56 SECURITY SYSTEM SALES CONSULTANT Alina Castaneda MD [facility]80770 Level 2 Est. Patient 15:34:57 SECURITY SYSTEM SALES CONSULTANT Alina Castaneda MD [facility]-[id number] Level 3 Est. Patient 12:17:04 SECURITY SYSTEM SALES CONSULTANT Alina Castaneda MD [facility]-33974 Level 3 Est. Patient 09:18:18 SECURITY SYSTEM SALES CONSULTANT Marvel Charles [facility]-[id number] Level 2 Est. Patient 21:50:24 CDT Alina Castaneda MD [facility]-70430 Level 3 Est. Patient 09:17:28 CDT Marvel Charles [facility]-[id number] Level 4 Est. Patient 18:54:02 CDT Alina Castaneda MD [facility]-11884 Level 3 Est. Patient 10:47:10 CDT Alina Castaneda MD [facility]19189 Level 3 Est. Patient 09:22:20 CDT Marvel Charles [facility]-[id number] Level 3 Est. Patient 16:39:43 CDT Marvel Charles [facility] CPT-34240 Level 3 Est. Patient 16:05:16 CDT Alina Castaneda MD [facility] CPT-15395 Level 3 Est. Patient 00:29:15 CDT Alina Castaneda MD [facility] CPT-96342 Level 3 Est. Patient 10:49:22 SECURITY SYSTEM SALES CONSULTANT Marvel Thurstonestela [facility] CPT-70279 Level 3 Est. Patient 21:30:19 SECURITY SYSTEM SALES CONSULTANT Alina Castaneda MD [facility] CPT-63170 Level 4 Est. Patient 17:04:11 SECURITY SYSTEM SALES CONSULTANT Marvel Thurstonestela [facility] CPT-38436 Level 3 Est. Patient 15:34:11 SECURITY SYSTEM SALES [facility] Level 2 Est. Patient 12:51:58 SECURITY SYSTEM SALES CONSULTANT Alina Castaneda MD [facility] CPT-71364 Level 3 Est. Patient 13:20:01 SECURITY SYSTEM SALES CONSULTANT Alina Castaneda MD [facility] CPT-81986 Level 3 Est. Patient 09:23:35 CDT Alina Castaneda MD [facility] Procedures Code Procedure Name Date Entry Date Standard Description CPT-21681 Bladder Scan 14:39:01 SECURITY SYSTEM SALES CONSULTANT CPT-TCMM Transitional Care Mgmt-Moderate 10:30:19 SECURITY SYSTEM SALES CONSULTANT CPT-52934 Bladder Scan 12:36:44 CDT CPT-36374 Bladder Scan 21:54:06 CDT CPT-G0008 Administration of Influenza Virus Vaccine 13:05:26 CDT CPT-05828 Fluzone Quadrivalent Intramuscular Suspension 0.5 ML 13: 05:26 CDT CPT-31421 Administration single or combination vaccine inc oral 11 :49:51 CDT CPT-04207 Pneumovax 11:49:51 CDT CPT-85369 Ribs unilateral 2V 12:37:22 SECURITY SYSTEM SALES CONSULTANT CPT-53193 Chest 2V Frontal and Lat 17:15:26 CDT CPT-17053 Abx/Therapy Injection 18:54:02 CDT CPT-J0696 Rocephin 1000 mg (Ceftriaxone) 16:00:32 CDT CPT-33793 Chest 2V Frontal and Lat 15:26:45 CDT CPT-10436 Chest 2V Frontal and Lat 10:23:27 CDT CPT-82109 Venipuncture Draw Fee 10:11:00 CDT CPT-26462 Administration single or combination vaccine inc oral 11 :56:38 CDT CPT-27043 Influenza split virus > age 3 11:56:38 CDT CPT-19580 Venipuncture Draw Fee 08:49:54 SECURITY SYSTEM SALES CONSULTANT CPT-42407 EKG Trac and Interp 17:54:19 SECURITY SYSTEM SALES CONSULTANT
--- OUTSIDE RECORDS SUMMARY | 2018-07-02 16:05 | XMS REPORT | Clinical Summary ---
Author Author Admin, TERELL Organization [facility] Address Unknown Phone Unavailable Allergies, Adverse Reactions, 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 Erazo [employer] Benign paroxysmal positional vertigo Vertigo, benign paroxysmal position 386.11 Inactive Mima Erazo [employer] Benign paroxysmal positional vertigo High-risk sexual behavior V69.2 Active Alina Castaneda MD PhD High-risk sexual behavior Erectile dysfunction 302.72 Active Alina Castaneda MD PhD Psychosexual dysfunction with inhibited sexual excitement Constipation 564.00 Active Alina Castaneda MD PhD Constipation, unspecified Skin lesion 709.9 Active Alina Castaneda MD PhD Unspecified disorder of skin and subcutaneous tissue Malaise and fatigue 780.79 Active Cherelle Speaks [employer] Other malaise and fatigue Diarrhea 787.91 Active Cherelle Speaks [employer] Diarrhea PHARYNGITIS 462 Active Cherelle Speaks [employer] Acute pharyngitis Colitis 558.9 Active Mima Erazo [employer] Other and unspecified noninfectious gastroenteritis and colitis [...] TACHYCARDIA ICD-785.0 Inactive Alina Castaneda MD PhD WOUND, OPEN, NOSE ICD-873.20 Inactive Alina Castaneda MD PhD PROBLEMS RELATED [...] SKIN LESION ICD-709.9 Roro Castaneda MD PhD DIABETIC HYPOGLYCEMIA, TYPE II ICD-250.80 Inactive Marvel 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 Roro Castaneda MD PhD Diabetes mellitus, type II, uncontrolled ICD-250.02 Inactive Alina Castaneda MD PhD SPECIAL SCREENING FOR MALIGNANT NEOPLASM OF PROSTATE ICD-V76.44 Roro Castaneda MD PhD ABNORMAL HEART RHYTHMS ICD-427.9 Roro Castaneda MD PhD SINUSITIS, ACUTE ICD-461.9 Roro Castaneda MD PhD Confusion ICD-298.9 Inactive [...] x 1 week then daily FLUTICASONE PROPIONATE 72146320270 Active Mima Yoeloinaum [employer] Active BD PEN NEEDLE MINI U/F 31G X 5 MM MISC 4 a day INSULIN PEN NEEDLE 52252981358 Active Maliheh Ziglari DATABASE 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 Active AMITIZA 24 MCG ORAL CAPS Take one capsule BID for constipation LUBIPROSTONE 65382422217 Active Mima Yokum [employer] Active LEVEMIR FLEXTOUCH 100 UNIT/ML SC SOPN 75 units SQ each evening, for diabetes INSULIN DETEMIR 79317575744 Active Mima Yokum [employer] Active TRUEPLUS LANCETS 30G MISC 3 a day LANCETS 95725257118 Active Malihnivia Mackenzieglari DAT[employer]ASE 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 Active TOLTERODINE TARTRATE 2 MG TABS 1 pill twice daily, for bladder TOLTERODINE TARTRATE 11019998828 No Longer Active Vanessa Hickey MD Active AMITIZA 24 MCG ORAL CAPS Take one capsule BID for constipation. LUBIPROSTONE 47905382377 No Longer Active Vanessa Hickey MD Active LOMOTIL 2.5-0.025 MG ORAL TABS take 1-2 tabs PO after each stool, no more than 8 in 24 hours DIPHENOXYLATE-ATROPINE 59571792853 Active Grace Azam RMA Active FLUVOXAMINE MALEATE 100 MG ORAL TABS take one tab every AM et HS, and take 1/ 2 tab at noon FLUVOXAMINE MALEATE 98661591976 Active Grace Azam RMA Active METOPROLOL SUCCINATE 100 MG [id number] 1 by mouth daily for blood pressure METOPROLOL SUCCINATE 04346152135 No Longer Active Grace Azam RMA Active METFORMIN HCL ER 500 MG [id number] Take three tablets by mouth everyday METFORMIN HCL 89965771139 No Longer Active Grace Azam RMA Active LOVAZA 1 GM CAPS 4 daily (for triglycerides) OMEGA-3- ACID ETHYL ESTERS 68110584473 No Longer Active Grace Azam RMA Active TRAZODONE HCL 100 MG ORAL TABS 1 tab by mouth for sleep TRAZODONE HCL 87686406853 No Longer Active Grace Azam RMA Active NOVOFINE 32G X 6 MM MISC use one four times per day INSULIN PEN NEEDLE 98759914150 No Longer Active Grace Azam RMA Active BACTROBAN 2 % CREAM Apply to affected area BID for up to 10 days MUPIROCIN CALCIUM 15033448436 No Longer Active Grace Azam RMA Active ZOFRAN 4 MG TABS 1 po q4hr PRN [place] ONDANSETRON HCL 34516693414 Active Salina Ervinford RMA Active KEFLEX 500 MG CAP 1 po BID x 7 days CEPHALEXIN 38140221459 No Longer Active Cherelle Avila [employer] Active FLUVOXAMINE MALEATE 100 MG TABS Take one (1) tablet by mouth am, 1/2 at noon FLUVOXAMINE MALEATE 26728098282 No Longer Active Mima Erazo [employer] Active CORICIDIN HBP CONGESTION/COUGH 10-200 MG ORAL CAPS Take as directed on box as needed for cold/flu symptoms DEXTROMETHORPHAN-GUAIFENESIN 08757818876 Active Cherelle Avila APRN Active OMEGA-3 300 MG ORAL CAPS 4 caps by mouth daily OMEGA-3 FATTY ACIDS 54586979836 Active Mima Erazo [employer] Active FLUVOXAMINE MALEATE 100 MG ORAL TABS Take 1/2 tab at noon FLUVOXAMINE MALEATE 62665940141 No Longer Active Cherelle Avila INSPECT[employer] Active [facility] LUBRICANT EYE DROPS 0.4-0.3 % OPHTH SOLN POLYETHYL GLYCOL-PROPYL GLYCOL 94550074045 Active Mima Erazo [employer] Active CLONAZEPAM 1 MG TABS 1/2 pill by mouth three times daily CLONAZEPAM 87708494964 Active Mima Erazo [employer] Active MIRALAX POWD 17g by mouth daily, for constipation POLYETHYLENE GLYCOL 3350 16753941362 Active Alina Castaneda MD PhD Active HYDROCODONE-ACETAMINOPHEN 5-325 MG TABS 2 tabs by mouth three times daily for pain HYDROCODONE-ACETAMINOPHEN 70547943997 Active Mima Erazo [employer] Active HUMALOG KWIKPEN 100 UNIT/ML SC SOPN 20 units with breakfast, 10 units with lunch, 10 units with dinner, for diabetes INSULIN LISPRO (HUMAN ) 16689826883 Active Alina Castaneda MD PhD Active LATUDA 120 MG ORAL TABS 1 pill by mouth nightly LURASIDONE HCL 20082836712 Active Alina Castaneda MD PhD Active COLACE 100 MG CAPS 1 pill by mouth twice daily, for constipation DOCUSATE SODIUM 48965915251 Active Alina Castaneda MD PhD Active TRUETEST TEST STRP check blood sugars 3x/day GLUCOSE BLOOD 46449103732 Active Marvel MARROQUIN Active ACCU-CHEK ROSA UZMA Use device to check blood sugars BLOOD GLUCOSE MONITORING SUPPL 47056049665 No Longer Active Marvel MARROQUIN Active ACCU-CHEK ROSA INVITR STRP use strips with device to check blood sugars 3 times daily GLUCOSE BLOOD 04037896074 No Longer Active Marvel MARROQUIN Active VERAPAMIL HCL ER 180 MG ORAL CR-TABS 1 pill by mouth twice daily, for migraine prevention VERAPAMIL HCL 24054404850 Active Alina Castaneda MD PhD Active CYCLOBENZAPRINE HCL 10 MG TABS 1 tablet by mouth three times daily, scheduled CYCLOBENZAPRINE HCL 43269490128 No Longer Active Alina Castaneda MD PhD Active HUMALOG 100 UNIT/ML SOLN Take 20 units with breakfast, 10u with lunch and suppetr. INSULIN LISPRO (HUMAN) 09635197043 No Longer Active Alina Castaneda MD PhD Active TRUETEST TEST STRP check sugars 4x/day GLUCOSE BLOOD 20886676508 No Longer Active Alina Castaneda MD PhD Active MORPHINE SULFATE 30 MG TABS 1 pill by mouth twice daily, for pain MORPHINE SULFATE 32848635038 Active Mima Erazo [employer] Active ACYCLOVIR 400 MG ORAL TABS 1 pill three times daily x 5 days, for cold sore outbreak ACYCLOVIR 83183791354 No Longer Active Alina Castaneda MD PhD Active PENICILLIN V POTASSIUM 500 MG TABS 1 pill by mouth three times daily PENICILLIN V POTASSIUM 88336083038 No Longer Active Alina Castaneda MD PhD Active UROXATRAL 10 MG [id number] Take 1 tablet by mouth daily ALFUZOSIN HCL 84217656691 No Longer Active Alina Castaneda MD PhD Active THIOTHIXENE 5 MG CAPS by mouth twice a day THIOTHIXENE 93868499185 No Longer Active Alina Castaneda MD PhD Active ZYPREXA 7.5 MG TABS 1 at HS OLANZAPINE 54622333349 No Longer Active Alina Castaneda MD PhD Active BD INSULIN SYRINGE 28G X 1/2" 1 ML MISC 1 four times per day INSULIN SYRINGE-NEEDLE U-100 72193774353 Active Marvel MARROQUIN Active DETROL LA 4 MG [id number]-[id number] Take 1 tablet by mouth daily TOLTERODINE TARTRATE 87358516924 No Longer Active Alina Castaneda MD PhD Active TERESE CONTOUR TEST STRP monitor blood sugars 3x/day GLUCOSE BLOOD 02400603793 No Longer Active Alina Castaneda MD PhD Active EQL TRUETEST TEST STRP Test blood sugar TID GLUCOSE BLOOD 59306681797 No Longer Active Alina Castaneda MD PhD Active FLUTICASONE PROPIONATE 50 MCG/ACT SUSP 2 sprays each nostril qDay x 30 days FLUTICASONE PROPIONATE 70557537536 No Longer Active Alina Castaneda MD PhD Active IBUPROFEN 200 MG TABS 1 Q 6 hr. PRN IBUPROFEN 75950136230 No Longer Active Alina Castaneda MD PhD Active NIACIN ER 500 MG CR-TABS 4 qHS (for triglycerides) NIACIN 34540919215 No Longer Active Alina Castaneda MD PhD Active ALFUZOSIN HCL ER 10 MG VL63Z-AMA 1 tablet daily ALFUZOSIN HCL 10561249754 Active Vanessa Hickey MD Active SAPHRIS 5 MG SUBL by mouth twice a day ASENAPINE MALEATE 49645260331 No Longer Active Marvel MARROQUIN Active ACETAMINOPHEN 500 MG TABS 2 Q 6 hr. PRN ACETAMINOPHEN 36180117899 No Longer Active Marvel MARROQUIN Active ORPHENADRINE CITRATE ER 100 MG [id number] 1 every 12 hr. as needed ORPHENADRINE CITRATE 76530413620 No Longer Active Alina Castaneda MD PhD Active NIACIN CR 500 MG CR-TABS 2 qHS NIACIN 78931947289 No Longer Active Alina Castaneda MD PhD Active AMOXICILLIN 500 MG CAPS 2 po BID x 10 days AMOXICILLIN 98979867873 No Longer Active Alina Castaneda MD PhD Active HYDROCODONE-ACETAMINOPHEN 7.5-325 MG TABS 1 four times a day as needed for pain HYDROCODONE-ACETAMINOPHEN 10200564135 No Longer Active Alina Castaneda MD PhD Active DOXEPIN HCL 10 MG CAPS Take 1 tablet by mouth daily DOXEPIN HCL 05766211125 No Longer Active Salina Han A Active NAVANE 10 MG CAPS 1/2 tablet twice a day THIOTHIXENE No Longer Active Salina Han A Active CYCLOBENZAPRINE HCL 10 MG TABS 1/2 tablet by mouth every 8 hours as needed for muscle spasms CYCLOBENZAPRINE HCL 94077510600 No Longer Active Alina Castaneda MD PhD Active BACTROBAN 2 % CREAM apply to ear and nose twice daily MUPIROCIN CALCIUM 73727908988 No Longer Active Alina Castaneda MD PhD Active HYDROCODONE-ACETAMINOPHEN 5-325 MG TABS take one tablet by mouth every four hours as needed for pain HYDROCODONE-ACETAMINOPHEN 14561256226 No Longer Active Alina Castaneda MD PhD Active ZOLPIDEM TARTRATE 10 MG TABS take at bedtime ZOLPIDEM TARTRATE 18900828172 Active Alina Castaneda MD PhD Active ZYPREXA 5 MG TABS take one tablet by mouth every evening OLANZAPINE 15485603655 No Longer Active Alina Castaneda MD PhD Active ALBUTEROL SULFATE 0.083 % NEBU SOLN one vial per nebulizer TID and PRN cough/ soa ALBUTEROL SULFATE 94406230442 No Longer Active Alina Castaneda MD PhD Active GUAIFENESIN 600 MG [id number] 1 tablet by mouth twice daily if needed for cough GUAIFENESIN 25349819455 No Longer Active Marvel MARROQUIN Active AZITHROMYCIN 500 MG SOLR 1 po q day AZITHROMYCIN 49835404504 No Longer Active Alina Castaneda MD PhD Active PROMETHAZINE-CODEINE 6.25-10 MG/5ML SYRP 1 tsp po q 6 hours prn cough PROMETHAZINE-CODEINE 89551657531 No Longer Active Alina Castaneda MD PhD Active CEFDINIR 300 MG CAPS by mouth twice a day CEFDINIR 08240974117 No Longer Active Alina Castaneda MD PhD Active METFORMIN HCL 500 MG [id number]-DSF Take 3 tablets by mouth everyday METFORMIN HCL 66979212794 No Longer Active Alina Castaneda MD PhD Active LEVEMIR 100 UNIT/ML SOLN 90 units SQ qHS INSULIN DETEMIR 53882159752 No Longer Active Marvel MARROQUIN Active TOPROL XL 100 MG [id number] 1 @ HS METOPROLOL SUCCINATE 81024718867 No Longer Active Marvel MARROQUIN Active ALLOPURINOL 300 MG TABS Take one by mouth daily ALLOPURINOL 73583708521 Active Mima Aguilarliudmila [employer] Active ZYPREXA 10 MG TABS Take one by mouth daily OLANZAPINE 59566153601 No Longer Active Alina Castaneda MD PhD Active NOVOLOG 100 UNIT/ML SOLN 40 units with every meal INSULIN ASPART 20720673683 No Longer Active Alina Castaneda MD PhD Active VERAPAMIL HCL CR 120 MG TAB CR 1 qPM VERAPAMIL HCL 20621088678 No Longer Active Salina Emely ROJAS Active ZYPREXA 15 MG TABS Take 1 tablet by mouth daily OLANZAPINE 39291070638 No Longer Active Marvel MARROQUIN Active LISINOPRIL 20 MG TABS 1 BID LISINOPRIL 61860413861 Active Alina Castaneda MD PhD Active ALBUTEROL SULFATE (2.5 MG/3ML) 0.083% NEBU 1 neb tid and prn cough ALBUTEROL SULFATE 18215316028 No Longer Active Alina Castaneda MD PhD Active TRAVATAN Z 0.004 % SOLN 1 gtt each eye daily TRAVOPROST 37684517446 Active CRYSTAL Suarez Active LANTUS 100 UNIT/ML SOLN 60 units sq q hs INSULIN GLARGINE 16527374802 No Longer Active CRYSTAL Suarez Active ALBUTEROL SULFATE (2.5 MG/3ML) 0.083% NEBU 1 neb tid and prn cough ALBUTEROL SULFATE (2.5 MG/3ML) 0.083% NEBU 878767 ALBUTEROL SULFATE Inactive ZYPREXA 15 MG TABS Take 1 tablet by mouth daily ZYPREXA 15 MG TABS 799138 OLANZAPINE Inactive VERAPAMIL HCL CR 120 MG TAB CR 1 qPM VERAPAMIL HCL CR 120 MG TAB CR VERAPAMIL HCL Inactive ZYPREXA 10 MG TABS Take one by mouth daily ZYPREXA 10 MG TABS 856689 OLANZAPINE Inactive TOPROL XL 100 MG [id number] 1 @ HS TOPROL XL 100 MG [id number]-UJN METOPROLOL SUCCINATE Inactive LEVEMIR 100 UNIT/ML SOLN 90 units SQ qHS LEVEMIR 100 UNIT/ML SOLN INSULIN DETEMIR Inactive PROMETHAZINE-CODEINE 6.25-10 MG/5ML SYRP 1 tsp po q 6 hours prn cough PROMETHAZINE-CODEINE 6.25-10 MG/5ML SYRP 318603 PROMETHAZINE- CODEINE Inactive GUAIFENESIN 600 MG SV70F-LNZ 1 tablet by mouth twice daily if needed for cough GUAIFENESIN 600 MG [id number]-[id number] GUAIFENESIN Inactive ALBUTEROL SULFATE 0.083 % NEBU SOLN one vial per nebulizer TID and PRN cough/ soa ALBUTEROL SULFATE 0.083 % NEBU SOLN 442441 ALBUTEROL SULFATE Inactive ZYPREXA 5 MG TABS take one tablet by mouth every evening ZYPREXA 5 MG TABS 019523 OLANZAPINE Inactive HYDROCODONE-ACETAMINOPHEN 5-325 MG TABS take one tablet by mouth every four hours as needed for pain HYDROCODONE-ACETAMINOPHEN 5-325 MG TABS 036775 HYDROCODONE-ACETAMINOPHEN Inactive BACTROBAN 2 % CREAM apply to ear and nose twice daily BACTROBAN 2 % CREAM 933016 MUPIROCIN CALCIUM Inactive CYCLOBENZAPRINE HCL 10 MG TABS 1/2 tablet by mouth every 8 hours as needed for muscle spasms CYCLOBENZAPRINE HCL 10 MG TABS 478609 CYCLOBENZAPRINE HCL Inactive NAVANE 10 MG CAPS 1/2 tablet twice a day NAVANE 10 MG CAPS THIOTHIXENE Inactive DOXEPIN HCL 10 MG CAPS Take 1 tablet by mouth daily DOXEPIN HCL 10 MG CAPS 3763179 DOXEPIN HCL Inactive HYDROCODONE-ACETAMINOPHEN 7.5-325 MG TABS 1 four times a day as needed for pain HYDROCODONE-ACETAMINOPHEN 7.5-325 MG TABS 140814 HYDROCODONE-ACETAMINOPHEN Inactive NIACIN CR 500 MG CR-TABS 2 qHS NIACIN CR 500 MG CR- TABS NIACIN Inactive ORPHENADRINE CITRATE ER 100 MG [id number] 1 every 12 hr. as needed ORPHENADRINE CITRATE ER 100 MG [id number]-OCD ORPHENADRINE CITRATE Inactive ACETAMINOPHEN 500 MG TABS 2 Q 6 hr. PRN ACETAMINOPHEN 500 MG TABS 316859 ACETAMINOPHEN Inactive SAPHRIS 5 MG SUBL by mouth twice a day SAPHRIS 5 MG SUBL ASENAPINE MALEATE Inactive NIACIN ER 500 MG CR-TABS 4 qHS (for triglycerides) NIACIN ER 500 MG CR-TABS NIACIN Inactive IBUPROFEN 200 MG TABS 1 Q 6 hr. PRN IBUPROFEN 200 MG TABS 902390 IBUPROFEN Inactive FLUTICASONE PROPIONATE 50 MCG/ACT SUSP 2 sprays each nostril qDay x 30 days FLUTICASONE PROPIONATE 50 MCG/ACT SUSP 305471 FLUTICASONE PROPIONATE Inactive EQL TRUETEST TEST STRP Test blood sugar TID EQL TRUETEST TEST STRP GLUCOSE BLOOD Inactive TERESE CONTOUR TEST STRP monitor blood sugars 3x/day TERESE CONTOUR TEST STRP GLUCOSE BLOOD Inactive DETROL LA 4 MG [id number] Take 1 tablet by mouth daily DETROL LA 4 MG [id number]-SPM TOLTERODINE TARTRATE Inactive ZYPREXA 7.5 MG TABS 1 at HS ZYPREXA 7.5 MG TABS 512636 OLANZAPINE Inactive THIOTHIXENE 5 MG CAPS by mouth twice a day THIOTHIXENE 5 MG CAPS 510758 THIOTHIXENE Inactive UROXATRAL 10 MG MG80F-LKY Take 1 tablet by mouth daily UROXATRAL 10 MG [id number]-XOW ALFUZOSIN HCL Inactive ACYCLOVIR 400 MG ORAL TABS 1 pill three times daily x 5 days, for cold sore outbreak ACYCLOVIR 400 MG ORAL TABS 145835 ACYCLOVIR Inactive TRUETEST TEST STRP check sugars 4x/day TRUETEST TEST STRP GLUCOSE BLOOD Inactive HUMALOG 100 UNIT/ML SOLN Take 20 units with breakfast, 10u with lunch and suppetr. HUMALOG 100 UNIT/ML SOLN INSULIN LISPRO ( HUMAN) Inactive CYCLOBENZAPRINE HCL 10 MG TABS 1 tablet by mouth three times daily, scheduled CYCLOBENZAPRINE HCL 10 MG TABS 858033 CYCLOBENZAPRINE HCL Inactive ACCU-CHEK ROSA INVITR STRP use strips with device to check blood sugars 3 times daily ACCU-CHEK ROSA INVITR STRP GLUCOSE BLOOD Inactive ACCU-CHEK ROSA UZMA Use device to check blood sugars ACCU-CHEK ROSA UZMA BLOOD GLUCOSE MONITORING SUPPL Inactive FLUVOXAMINE MALEATE 100 MG ORAL TABS Take 1/2 tab at noon FLUVOXAMINE MALEATE 100 MG ORAL TABS 544302 FLUVOXAMINE MALEATE Inactive FLUVOXAMINE MALEATE 100 MG TABS Take one (1) tablet by mouth am, 1/2 at noon FLUVOXAMINE MALEATE 100 MG TABS 912681 FLUVOXAMINE MALEATE Inactive BACTROBAN 2 % CREAM Apply to affected area BID for up to 10 days BACTROBAN 2 % CREAM 480922 MUPIROCIN CALCIUM Inactive NOVOFINE 32G X 6 MM MISC use one four times per day NOVOFINE 32G X 6 MM MISC INSULIN PEN NEEDLE Inactive TRAZODONE HCL 100 MG ORAL TABS 1 tab by mouth for sleep TRAZODONE HCL 100 MG ORAL TABS 131011 TRAZODONE HCL Inactive LOVAZA 1 GM CAPS 4 daily (for triglycerides) LOVAZA 1 GM CAPS 397463 POAKH-3-GKYR ETHYL ESTERS Inactive METFORMIN HCL ER 500 MG AU53B-ZHI Take three tablets by mouth everyday METFORMIN HCL ER 500 MG LT07Z-BHP METFORMIN HCL Inactive METOPROLOL SUCCINATE 100 MG ZK69J-ICN 1 by mouth daily for blood pressure METOPROLOL SUCCINATE 100 MG CP69G-ADI METOPROLOL SUCCINATE Inactive AMITIZA 24 MCG ORAL CAPS Take one capsule BID for constipation. AMITIZA 24 MCG ORAL CAPS LUBIPROSTONE Inactive TOLTERODINE TARTRATE 2 MG TABS 1 pill twice daily, for bladder TOLTERODINE TARTRATE 2 MG TABS 943351 TOLTERODINE TARTRATE Inactive CEFDINIR 300 MG CAPS by mouth twice a day CEFDINIR 300 MG CAPS 180203 CEFDINIR Inactive AZITHROMYCIN 500 MG SOLR 1 po q day AZITHROMYCIN 500 MG SOLR 39525369826 AZITHROMYCIN Inactive AMOXICILLIN 500 MG CAPS 2 po BID x 10 days AMOXICILLIN 500 MG CAPS 428435 AMOXICILLIN Inactive PENICILLIN V POTASSIUM 500 MG TABS 1 pill by mouth three times daily PENICILLIN V POTASSIUM 500 MG TABS 917333 PENICILLIN V POTASSIUM Inactive KEFLEX 500 MG CAP 1 po BID x 7 days KEFLEX 500 MG CAP 753775 CEPHALEXIN Inactive Immunizations Vaccine Administration Date Value [...] Fluvirin, Fluarix, Agriflu(>=18 yo)) Fluzone (>3 yrs.) [[id number]] Influenza, seasonal, injectable pneumococcal immunization administered Pneumovax [...] Panel - Chemistry sodium, serum 137 mmol/L 295-250 4667/10/12 potassium, serum 4.8 mmol/L 3.5-5.2 chloride, serum 102 mmol/L 98-107 carbon dioxide, venous blood 27.6 mmol/L 21.0-32.0 blood glucose 168 mg/dL 65-110 calcium, serum 9.0 mg/dL 8.5-10.1 urea nitrogen, blood 15 mg/dL 7-18 creatinine, serum 1.04 mg/dL 0.55-1.30 sodium, serum 138 mmol/L 557-456 2920/11/11 potassium, serum 4.7 mmol/L 3.5-5.2 chloride, serum [...] % 11.6-14.8 platelet count 252 10^3/MM^3 10*3/mm3 442-066 9214/10/12 leukocyte count, blood 5.8 10^3/MM^3 10*3/mm3 4.6-10.2 [...] 240 10^3/MM^3 10*3/mm3 142-424 Lab Report: Chlamydia/GC APTIMA/08953, HIV-1/2 Agn/Dominga/88189, RPR (DX) W ... - Chemistry hepatitis B surface antigen NON-REACTIVE NON-REACTIVE Lab Report: Chlamydia/GC APTIMA/04011, HIV-1/2 Agn/Dominga/97795, RPR (DX) W ... - Lab chlamydia DNA probe NOT DETECTED NOT DETECTED Lab Report: Chlamydia/GC APTIMA/09292, HIV-1/2 Agn/Dominga/66607, RPR (DX) W ... - Microbiology Neisseria gonorrhoeae DNA probe NOT DETECTED NOT DETECTED Lab Report: Chlamydia/GC APTIMA/52755, HIV-1/2 Agn/Dominga/07241, RPR (DX) W ... - Serology rapid [...] CBC - Chemistry cholesterol, serum 131 mg/dL 218-036 3871/06/03 triglyceride, serum, fasting 383 mg/dL 30-200 HDL [...] 4.7 mg/dL 2.6-7.2 cholesterol, serum 142 mg/dL 295-159 0297/06/26 triglyceride, serum, fasting 272 mg/dL 30-200 HDL [...] negative Encounters Code Encounter Date Provider Facility [facility]-[id number] Level 3 Est. Patient 14:39:00 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 Vanessa Hickey MD [facility]36231 Level 2 Est. Patient 18:43:34 CDT Mima Erazo [facility]-53623 Level 3 Est. Patient 16:22:09 CDT Cherelle Speakluciana [facility]-89828 Level 4 Est. Patient 17:55:14 CDT Mima Erazo [facility] CPT-06876 Level 2 Est. Patient 17:13:21 CDT Alina Castaneda MD [facility]01601 Level 3 Est. Patient 14:46:15 CDT Vanessa Hickey MD [facility]15051 Level 3 Est. Patient 09:34:56 CDT Alina Castaneda MD [facility]01381 Level 3 Est. Patient 21:40:19 CDT Mima Erazo [facility]-16184 Level 3 Est. Patient 09:26:40 CDT Marvel [facility]86833 Level 3 Est. Patient 12:36:43 CDT Vanessa Hickey MD [facility]28817 Level 3 Est. Patient 12:57:49 CDT Vaenssa Hickey MD [facility] CPT-88964 Level 3 Est. Patient 00:28:25 CDT Alina Castaneda MD [facility]-76153 Level 2 Est. Patient 12:52:14 CDT Alina Castaneda MD [facility]-97555 Level 3 Est. Patient 11:51:18 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 Alina Castaneda MD [facility]-29710 Level 3 Est. Patient 10:09:22 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 Alina Castaneda MD [facility]94779 Level 3 Est. Patient 14:36:26 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 [facility]31900 Level 3 Est. Patient 13:34:47 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 Alina Castaneda MD [facility]69714 Level 3 Est. Patient 19:52:08 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 Alina Castaneda MD [facility]25544 Level 3 Est. Patient 10:01:51 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-96586 Level 3 Est. Patient 21:54:06 CDT Vanessa Hickey MD [facility]82846 Level 3 Est. Patient 08:54:46 CDT Alina Castaneda MD [facility]-28581 Level 3 Est. Patient 09:32:11 CDT Marvel [facility]-57276 Level 3 Est. Patient 12:02:49 CDT Alina Castaneda MD [facility]88154 Level 3 Est. Patient 19:17:33 CDT Alina Castaneda MD [facility]48239 Level 3 Est. Patient 13:19:10 CDT Marvel [facility]-64958 Level 3 Est. Patient 08:20:05 CDT Alina Castaneda MD [facility]-81227 Level 3 Est. Patient 15:17:18 CDT Alina Castaneda MD [facility]-24815 Level 3 Est. Patient 14:25:36 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 Marvel Charles [facility]-54232 Level 3 Est. Patient 10:09:15 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 Marvel Charles [facility]-76044 Level 3 Est. Patient 21:28:43 CDT Alina Castaneda MD [facility]-19825 Level 3 Est. Patient 15:20:11 [facility] Level 4 Est. Patient 19:08:12 CDT Alina Castaneda MD [facility]-54960 Level 3 Est. Patient 15:06:39 [facility]94221 Level 4 Est. Patient 17:48:15 CDT Alina Castaneda MD [facility]-40423 Level 3 Est. Patient 14:53:49 CDT Alina Castaneda MD [facility]-02782 Level 3 Est. Patient 09:35:16 CDT Alina Castaneda MD [facility]-84475 Level 3 Est. Patient 12:23:22 CDT Alina Castaneda MD [facility]-85396 Level 3 Est. Patient 16:19:15 CDT Alina Castaneda MD [facility]-53729 Level 3 Est. Patient 21:39:56 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 Alina Castaneda MD [facility]62286 Level 4 Est. Patient 14:12:56 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 Alina Castaneda MD [facility]-29189 Level 2 Est. Patient 15:34:57 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 Alina Castaneda MD [facility]-70268 Level 3 Est. Patient 12:17:04 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 Alina Castaneda MD [facility]-35015 Level 3 Est. Patient 09:18:18 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 Marvel Charles [facility] CPT-07152 Level 2 Est. Patient 21:50:24 CDT Alina Castaneda MD [facility]-04683 Level 3 Est. Patient 09:17:28 CDT Marvel Charles [facility]-55988 Level 4 Est. Patient 18:54:02 CDT Alina Castaneda MD [facility]-58318 Level 3 Est. Patient 10:47:10 CDT Alina Castaneda MD [facility] [place]-[id number] Level 3 Est. Patient 09:22:20 CDT Marvel Charles [facility] [place] CPT-79333 Level 3 Est. Patient 16:39:43 CDT Marvel Charles [facility] [place] CPT-92245 Level 3 Est. Patient 16:05:16 CDT Alina Castaneda MD [facility] [place]-[id number] Level 3 Est. Patient 00:29:15 CDT Alina Castaneda MD [facility] [place]-[id number] Level 3 Est. Patient 10:49:22 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 Marvel Charles [facility]-81190 Level 3 Est. Patient 21:30:19 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 Alina Castaneda MD [facility] [place]-39133 Level 4 Est. Patient 17:04:11 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 [facility] [place] CPT-81560 Level 3 Est. Patient 15:34:11 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 [facility] [place] CPT-82896 Level 2 Est. Patient 12:51:58 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 Alina Castaneda MD PhD [facility] CPT-80600 Level 3 Est. Patient 13:20:01 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 Alina Castaneda MD PhD [facility] CPT-87369 Level 3 Est. 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
--- OUTSIDE RECORDS SUMMARY | 2018-07-02 16:07 | XMS REPORT | Clinical Summary ---
Author Author Admin, TERELL Organization [facility] Address Unknown Phone Unavailable Allergies, Adverse Reactions, Alerts Allergy Name Reaction Description Start Date Severity Status Provider PROZAC Critical Active CRYSTAL Suarez ABILIFGreg Critical Active CRYSTAL Suarez Conditions or Problems Problem Name Problem Code Onset Date Status Entry Date Provider Comment Standard Description Annotate ESSENTIAL HYPERTENSION, BENIGN 401.1 Active Alina Castaenda MD PhD Benign essential hypertension WOUND, OPEN, [...] unspecified Diabetes mellitus, type II 250.00 Active Marevl MARROQUIN Diabetes mellitus without mention of complication, 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 Erazo BREAST BUFFER Benign paroxysmal positional vertigo Vertigo, benign paroxysmal position 386.11 Inactive Mima Erazo BREAST BUFFER Benign paroxysmal positional vertigo High-risk sexual behavior V69.2 Active Alina Castaneda MD PhD High-risk sexual behavior Erectile dysfunction 302.72 Active Alina Castaneda MD PhD Psychosexual dysfunction with inhibited sexual excitement Constipation 564.00 Active Alina Castaneda MD PhD Constipation, unspecified Skin lesion 709.9 Active Alina Castaneda MD PhD Unspecified disorder of skin and subcutaneous tissue Malaise and fatigue 780.79 Active Cherelle Speaks BREAST BUFFER Other malaise and fatigue Diarrhea 787.91 Active Cherelle Speaks BREAST BUFFER Diarrhea PHARYNGITIS 462 Active Cherelle Speaks BREAST BUFFER Acute pharyngitis Colitis 558.9 Active Mima Erazo BREAST BUFFER Other and unspecified noninfectious gastroenteritis and colitis [...] CAPS Take one by mouth daily CHOLECALCIFEROL 25356563370 Active Mima Yokum BREAST BUFFER Active LATUDA 60 MG ORAL TABS Take one by mouth daily LURASIDONE HCL 07653525287 No Longer Active Mima Yokum BREAST BUFFER Active HUMALOG KWIKPEN 100 UNIT/ML SC SOPN sliding scale if needed INSULIN LISPRO (HUMAN) 16555545386 Active Mima Yokum BREAST BUFFER Active MORPHINE SULFATE 30 MG ORAL TABS by mouth twice a day MORPHINE SULFATE 79901979677 Active Salina Han [facility] Active TRAZODONE HCL 100 MG TABS 1 every night to prevent headaches TRAZODONE HCL 80710002428 Active Gabrielle Madl [employer]PERVIS[employer]INDING Active LATUDA 60 MG ORAL TABS 1 tab daily LURASIDONE HCL 58900440736 Active Gabrielle Madl SUPERVIS[employer]ING Active CLONAZEPAM 1 MG TABS 1 pill by mouth three times daily CLONAZEPAM 18256821159 Active Gabrielle Madl SUPERVISOR [employer] WINDING Active [facility] MILK OF MAGNESIA 400 MG/5ML ORAL SUSP 30ml by mouth bid prn MAGNESIUM HYDROXIDE 70831020372 Active Mason Loredo MD Active TYLENOL 8 HOUR 650 MG ORAL CR-TABS 1 tab QID prn ACETAMINOPHEN 23409473646 Active Mason Loredo MD Active MYLANTA GAS RELIEF MAXIMUM STR 125 MG ORAL CAPS 30cc every 4 hours prn 12/01 SIMETHICONE 61770216933 Active Mason Loredo MD Active IMODIUM A-D 2 MG ORAL TABS 1 tab QID as needed LOPERAMIDE HCL 95541847226 Active Mason Loredo MD Active FLUVOXAMINE MALEATE 50 MG ORAL TABS 1 tab by mouth daily FLUVOXAMINE MALEATE 51379775401 Active Mason Loredo MD Active TRAVATAN Z 0.004 % SOLN 1 gtt each eye daily TRAVOPROST 91216580929 No Longer Active Mason Loredo MD Active LISINOPRIL 20 MG TABS 1 BID LISINOPRIL 82836418905 No Longer Active Mason Loredo MD Active LEVEMIR FLEXTOUCH 100 UNIT/ML SC SOPN 60 units SQ each evening, for diabetes INSULIN DETEMIR 91703203461 Active Desi Nicholson Active ZOLPIDEM TARTRATE 10 MG TABS take at bedtime ZOLPIDEM TARTRATE 59344346292 No Longer Active Mason Loredo MD Active HYDROCODONE-ACETAMINOPHEN 5-325 MG TABS 2 tabs by mouth three times daily for pain HYDROCODONE-ACETAMINOPHEN 57522089659 No Longer Active Mason Loredo MD Active ZOFRAN 4 MG TABS 1 po q4hr PRN Nausea ONDANSETRON HCL 17409524229 No Longer Active Mason Loredo MD Active LOMOTIL 2.5-0.025 MG ORAL TABS take 1-2 tabs PO after each stool, no more than 8 in 24 hours DIPHENOXYLATE-ATROPINE 73946657606 No Longer Active Mason Loredo MD Active COLACE 100 MG CAPS 1 pill by mouth twice daily, for constipation DOCUSATE SODIUM 80685960749 No Longer Active Mima Kacey [place] Active FLONASE ALLERGY RELIEF 50 MCG/ACT NASAL SUSP One spray each nostril BID x 1 week then daily FLUTICASONE PROPIONATE 22616441543 Active Mima Erazo APRN Active BD PEN NEEDLE MINI U/F 31G X 5 MM MISC 4 a day INSULIN PEN NEEDLE 95648614130 Active Marvel Bertrandari PUBLIC WORKS TECHNICIAN Active AMITIZA 24 MCG ORAL CAPS Take one capsule BID for constipation LUBIPROSTONE 28272659162 Active Mima Erazo BREAST BUFFER Active TRUEPLUS LANCETS 30G MISC 3 a day LANCETS 94560959117 Active Marvel 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 PUBLIC WORKS TECHNICIAN Active TOLTERODINE TARTRATE 2 MG TABS 1 pill twice daily, for bladder TOLTERODINE TARTRATE 27310868589 No Longer Active Vanessa Hickey MD Active AMITIZA 24 MCG ORAL CAPS Take one capsule BID for constipation. LUBIPROSTONE 56873884221 No Longer Active Vanessa Hickey MD Active FLUVOXAMINE MALEATE 100 MG ORAL TABS take one tab every AM et HS, and take 1/ 2 tab at noon FLUVOXAMINE MALEATE 44883551831 Active Grace Azam RMA Active METOPROLOL SUCCINATE 100 MG [id number] 1 by mouth daily for blood pressure METOPROLOL SUCCINATE 69330637815 No Longer Active Grace Azam RMA Active METFORMIN HCL ER 500 MG [id number] Take three tablets by mouth everyday METFORMIN HCL 71818676696 No Longer Active Grace Azam RMA Active LOVAZA 1 GM CAPS 4 daily (for triglycerides) OMEGA-3- ACID ETHYL ESTERS 98155005833 No Longer Active Grace Azam RMA Active TRAZODONE HCL 100 MG ORAL TABS 1 tab by mouth for sleep TRAZODONE HCL 50384375630 No Longer Active Grace Azam RMA Active NOVOFINE 32G X 6 MM MISC use one four times per day INSULIN PEN NEEDLE 21803379576 No Longer Active Grace Azam RMA Active BACTROBAN 2 % CREAM Apply to affected area BID for up to 10 days MUPIROCIN CALCIUM 02566680215 No Longer Active Grace Nelsonb RMA Active KEFLEX 500 MG CAP 1 po BID x 7 days CEPHALEXIN 81106950590 No Longer Active Cherelle Speaks BREAST BUFFER Active FLUVOXAMINE MALEATE 100 MG TABS Take one (1) tablet by mouth am, 1/2 at noon FLUVOXAMINE MALEATE 17973962885 No Longer Active Mima Erazo BREAST BUFFER Active CORICIDIN HBP CONGESTION/COUGH 10-200 MG ORAL CAPS Take as directed on box as needed for cold/flu symptoms DEXTROMETHORPHAN-GUAIFENESIN 16241060773 Active Cherelle Speaks BREAST BUFFER Active OMEGA-3 300 MG ORAL CAPS 4 caps by mouth daily OMEGA-3 FATTY ACIDS 18637273363 Active Mima Erazo BREAST BUFFER Active FLUVOXAMINE MALEATE 100 MG ORAL TABS Take 1/2 tab at noon FLUVOXAMINE MALEATE 75931949036 No Longer Active Cherelle Austin BREAST BUFFER Active [facility] LUBRICANT EYE DROPS 0.4-0.3 % OPHTH SOLN POLYETHYL GLYCOL-PROPYL GLYCOL 46869513785 Active Mima Erazo BREAST BUFFER Active MIRALAX POWD 17g by mouth daily, for constipation POLYETHYLENE GLYCOL 3350 84962767563 Active Alina Castaneda MD PhD Active TRUETEST TEST STRP check blood sugars 3x/day GLUCOSE BLOOD 11741224549 Active Maliheh Ziglari [employer] WORKS TECHNICIAN Active ACCU-CHEK ROSA UZMA Use device to check blood sugars BLOOD GLUCOSE MONITORING SUPPL 12832417478 No Longer Active Maliheh Ziglari PUBLIC WORKS TECHNICIAN Active ACCU-CHEK ROSA INVITR STRP use strips with device to check blood sugars 3 times daily GLUCOSE BLOOD 46148586470 No Longer Active Maliheh Ziglari PUBLIC WORKS TECHNICIAN Active VERAPAMIL HCL ER 180 MG ORAL CR-TABS 1 pill by mouth twice daily, for migraine prevention VERAPAMIL HCL 67858289480 Active CRYSTAL Rodrigues Active CYCLOBENZAPRINE HCL 10 MG TABS 1 tablet by mouth three times daily, scheduled CYCLOBENZAPRINE HCL 78649159242 No Longer Active Alina Castaneda MD PhD Active HUMALOG 100 UNIT/ML SOLN Take 20 units with breakfast, 10u with lunch and suppetr. INSULIN LISPRO (HUMAN) 40490206632 No Longer Active Alina Castaneda MD PhD Active TRUETEST TEST STRP check sugars 4x/day GLUCOSE BLOOD 49538559041 No Longer Active Alina Castaneda MD PhD Active MORPHINE SULFATE 30 MG TABS 1 pill by mouth twice daily, for pain MORPHINE SULFATE 46925521770 No Longer Active Mason Loredo MD Active ACYCLOVIR 400 MG ORAL TABS 1 pill three times daily x 5 days, for cold sore outbreak ACYCLOVIR 01724091215 No Longer Active Alina Castaneda MD PhD Active PENICILLIN V POTASSIUM 500 MG TABS 1 pill by mouth three times daily PENICILLIN V POTASSIUM 16260339932 No Longer Active Alina Castaneda MD PhD Active UROXATRAL 10 MG [id number] Take 1 tablet by mouth daily ALFUZOSIN HCL 52417480943 No Longer Active Alina Castaneda MD PhD Active THIOTHIXENE 5 MG CAPS by mouth twice a day THIOTHIXENE 47871354364 No Longer Active Alina Castaneda MD PhD Active ZYPREXA 7.5 MG TABS 1 at HS OLANZAPINE 66287291618 No Longer Active Alina Castaneda MD PhD Active BD INSULIN SYRINGE 28G X 1/2" 1 ML MISC 1 four times per day INSULIN SYRINGE-NEEDLE U-100 99201425296 Active Marvel Mackenzieglestela PUBLIC WORKS TECHNICIAN Active DETROL LA 4 MG [id number] Take 1 tablet by mouth daily TOLTERODINE TARTRATE 72260019174 No Longer Active Alina Castaneda MD PhD Active TERESE CONTOUR TEST STRP monitor blood sugars 3x/day GLUCOSE BLOOD 03705583587 No Longer Active Alina Castaneda MD PhD Active EQL TRUETEST TEST STRP Test blood sugar TID GLUCOSE BLOOD 39688161148 No Longer Active Alina Castaneda MD PhD Active FLUTICASONE PROPIONATE 50 MCG/ACT SUSP 2 sprays each nostril qDay x 30 days FLUTICASONE PROPIONATE 64669797944 No Longer Active Alina Castaneda MD PhD Active IBUPROFEN 200 MG TABS 1 Q 6 hr. PRN IBUPROFEN 00026649952 No Longer Active Alina Castaneda MD PhD Active NIACIN ER 500 MG CR-TABS 4 qHS (for triglycerides) NIACIN 08917358631 No Longer Active Alina Castaneda MD PhD Active ALFUZOSIN HCL ER 10 MG [id number] 1 tablet daily ALFUZOSIN HCL 19969682175 Active CRYSTAL Rodrigues Active SAPHRIS 5 MG SUBL by mouth twice a day ASENAPINE MALEATE 40921348181 No Longer Active Maljohn Ziglestela MENDOZAP Active ACETAMINOPHEN 500 MG TABS 2 Q 6 hr. PRN ACETAMINOPHEN 53874474684 No Longer Active Mallashondaeh 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 PUBLIC WORKS TECHNICIAN Active ORPHENADRINE CITRATE ER 100 MG VA10H-XYW 1 every 12 hr. as needed ORPHENADRINE CITRATE 06898647487 No Longer Active Alina Castaneda MD PhD Active NIACIN CR 500 MG CR-TABS 2 qHS NIACIN 32768591948 No Longer Active Alina Castaneda MD PhD Active AMOXICILLIN 500 MG CAPS 2 po BID x 10 days AMOXICILLIN 14536719763 No Longer Active Alina Castaneda MD PhD Active HYDROCODONE-ACETAMINOPHEN 7.5-325 MG TABS 1 four times a day as needed for pain HYDROCODONE-ACETAMINOPHEN 74796345680 No Longer Active Alina Castaneda MD PhD Active DOXEPIN HCL 10 MG CAPS Take 1 tablet by mouth daily DOXEPIN HCL 63368913171 No Longer Active Salina Han [facility] Active NAVANE 10 MG CAPS 1/2 tablet twice a day THIOTHIXENE No Longer Active Salina Han A Active CYCLOBENZAPRINE HCL 10 MG TABS 1/2 tablet by mouth every 8 hours as needed for muscle spasms CYCLOBENZAPRINE HCL 97462902070 No Longer Active Alina Castaneda MD PhD Active BACTROBAN 2 % CREAM apply to ear and nose twice daily MUPIROCIN CALCIUM 17823415375 No Longer Active Alina Castaneda MD PhD Active HYDROCODONE-ACETAMINOPHEN 5-325 MG TABS take one tablet by mouth every four hours as needed for pain HYDROCODONE-ACETAMINOPHEN 79151692932 No Longer Active Alina Castaneda MD PhD Active ZYPREXA 5 MG TABS take one tablet by mouth every evening OLANZAPINE 70822548006 No Longer Active Alina Castaneda MD PhD Active ALBUTEROL SULFATE 0.083 % NEBU SOLN one vial per nebulizer TID and PRN cough/ soa ALBUTEROL SULFATE 70198461200 No Longer Active Alina Castaneda MD PhD Active GUAIFENESIN 600 MG [id number] 1 tablet by mouth twice daily if needed for cough GUAIFENESIN 45417994889 No Longer Active Marvel Charles [facility] Active AZITHROMYCIN 500 MG SOLR 1 po q day AZITHROMYCIN 50485945101 No Longer Active Alina Castaneda MD PhD Active PROMETHAZINE-CODEINE 6.25-10 MG/5ML SYRP 1 tsp po q 6 hours prn cough PROMETHAZINE-CODEINE 45941075507 No Longer Active Alina Castaneda MD PhD Active CEFDINIR 300 MG CAPS by mouth twice a day CEFDINIR 29842513210 No Longer Active Alina Castaneda MD PhD Active METFORMIN HCL 500 MG WE06A-DHI Take 3 tablets by mouth everyday METFORMIN HCL 57779699352 No Longer Active Alina Castaneda MD PhD Active LEVEMIR 100 UNIT/ML SOLN 90 units SQ qHS INSULIN DETEMIR 80603314376 No Longer Active Marvel MARROQUIN Active TOPROL XL 100 MG [id number] 1 @ HS METOPROLOL SUCCINATE 42990074623 No Longer Active Marvel MARROQUIN Active ALLOPURINOL 300 MG TABS Take one by mouth daily ALLOPURINOL 20741654952 Active Mimacecily Fierroum BREAST BUFFER Active ZYPREXA 10 MG TABS Take one by mouth daily OLANZAPINE 39899300863 No Longer Active Alina Castaneda MD PhD Active NOVOLOG 100 UNIT/ML SOLN 40 units with every meal INSULIN ASPART 00000678829 No Longer Active Alina Castaneda MD PhD Active VERAPAMIL HCL CR 120 MG TAB CR 1 qPM VERAPAMIL HCL 67791423741 No Longer Active Salina ROJAS Active ZYPREXA 15 MG TABS Take 1 tablet by mouth daily OLANZAPINE 07014810871 No Longer Active Marvel MARROQUIN Active ALBUTEROL SULFATE (2.5 MG/3ML) 0.083% NEBU 1 neb tid and prn cough ALBUTEROL SULFATE 97350022126 No Longer Active Alina Castaneda MD PhD Active LANTUS 100 UNIT/ML SOLN 60 units sq q hs INSULIN GLARGINE 59752242538 No Longer Active CRYSTAL Suarez Active ALBUTEROL SULFATE (2.5 MG/3ML) 0.083% NEBU 1 neb tid and prn cough ALBUTEROL SULFATE (2.5 MG/3ML) 0.083% NEBU 087177 ALBUTEROL SULFATE Inactive ZYPREXA 15 MG TABS Take 1 tablet by mouth daily ZYPREXA 15 MG TABS 116517 OLANZAPINE Inactive VERAPAMIL HCL CR 120 MG TAB CR 1 qPM VERAPAMIL HCL CR 120 MG TAB CR VERAPAMIL HCL Inactive ZYPREXA 10 MG TABS Take one by mouth daily ZYPREXA 10 MG TABS 592008 OLANZAPINE Inactive TOPROL XL 100 MG [id number] 1 @ HS TOPROL XL 100 MG [id number] METOPROLOL SUCCINATE Inactive LEVEMIR 100 UNIT/ML SOLN 90 units SQ qHS LEVEMIR 100 UNIT/ML SOLN INSULIN DETEMIR Inactive PROMETHAZINE-CODEINE 6.25-10 MG/5ML SYRP 1 tsp po q 6 hours prn cough PROMETHAZINE-CODEINE 6.25-10 MG/5ML SYRP 654308 PROMETHAZINE- CODEINE Inactive GUAIFENESIN 600 MG [id number] 1 tablet by mouth twice daily if needed for cough GUAIFENESIN 600 MG [id number] GUAIFENESIN Inactive ALBUTEROL SULFATE 0.083 % NEBU SOLN one vial per nebulizer TID and PRN cough/ soa ALBUTEROL SULFATE 0.083 % NEBU SOLN 531324 ALBUTEROL SULFATE Inactive ZYPREXA 5 MG TABS take one tablet by mouth every evening ZYPREXA 5 MG TABS 818357 OLANZAPINE Inactive HYDROCODONE-ACETAMINOPHEN 5-325 MG TABS take one tablet by mouth every four hours as needed for pain HYDROCODONE-ACETAMINOPHEN 5-325 MG TABS 020764 HYDROCODONE-ACETAMINOPHEN Inactive BACTROBAN 2 % CREAM apply to ear and nose twice daily BACTROBAN 2 % CREAM 101927 MUPIROCIN CALCIUM Inactive CYCLOBENZAPRINE HCL 10 MG TABS 1/2 tablet by mouth every 8 hours as needed for muscle spasms CYCLOBENZAPRINE HCL 10 MG TABS 823070 CYCLOBENZAPRINE HCL Inactive NAVANE 10 MG CAPS 1/2 tablet twice a day NAVANE 10 MG CAPS THIOTHIXENE Inactive DOXEPIN HCL 10 MG CAPS Take 1 tablet by mouth daily DOXEPIN HCL 10 MG CAPS 9910959 DOXEPIN HCL Inactive HYDROCODONE-ACETAMINOPHEN 7.5-325 MG TABS 1 four times a day as needed for pain HYDROCODONE-ACETAMINOPHEN 7.5-325 MG TABS 296763 HYDROCODONE-ACETAMINOPHEN Inactive NIACIN CR 500 MG CR-TABS 2 qHS NIACIN CR 500 MG CR- TABS NIACIN Inactive ORPHENADRINE CITRATE ER 100 MG [id number] 1 every 12 hr. as needed ORPHENADRINE CITRATE ER 100 MG [id number] ORPHENADRINE CITRATE Inactive ACETAMINOPHEN 500 MG TABS 2 Q 6 hr. PRN ACETAMINOPHEN 500 MG TABS 875314 ACETAMINOPHEN Inactive SAPHRIS 5 MG SUBL by mouth twice a day SAPHRIS 5 MG SUBL ASENAPINE MALEATE Inactive NIACIN ER 500 MG CR-TABS 4 qHS (for triglycerides) NIACIN ER 500 MG CR-TABS NIACIN Inactive IBUPROFEN 200 MG TABS 1 Q 6 hr. PRN IBUPROFEN 200 MG TABS 921582 IBUPROFEN Inactive FLUTICASONE PROPIONATE 50 MCG/ACT SUSP 2 sprays each nostril qDay x 30 days FLUTICASONE PROPIONATE 50 MCG/ACT SUSP 826822 FLUTICASONE PROPIONATE Inactive EQL TRUETEST TEST STRP Test blood sugar TID EQL TRUETEST TEST STRP GLUCOSE BLOOD Inactive TERESE CONTOUR TEST STRP monitor blood sugars 3x/day TERESE CONTOUR TEST STRP GLUCOSE BLOOD Inactive DETROL LA 4 MG [id number] Take 1 tablet by mouth daily DETROL LA 4 MG [id number]-IXM TOLTERODINE TARTRATE Inactive ZYPREXA 7.5 MG TABS 1 at HS ZYPREXA 7.5 MG TABS 249293 OLANZAPINE Inactive THIOTHIXENE 5 MG CAPS by mouth twice a day THIOTHIXENE 5 MG CAPS 254654 THIOTHIXENE Inactive UROXATRAL 10 MG [id number] Take 1 tablet by mouth daily UROXATRAL 10 MG [id number]-GCL ALFUZOSIN HCL Inactive ACYCLOVIR 400 MG ORAL TABS 1 pill three times daily x 5 days, for cold sore outbreak ACYCLOVIR 400 MG ORAL TABS 429694 ACYCLOVIR Inactive TRUETEST TEST STRP check sugars 4x/day TRUETEST TEST STRP GLUCOSE BLOOD Inactive HUMALOG 100 UNIT/ML SOLN Take 20 units with breakfast, 10u with lunch and suppetr. HUMALOG 100 UNIT/ML SOLN INSULIN LISPRO ( HUMAN) Inactive CYCLOBENZAPRINE HCL 10 MG TABS 1 tablet by mouth three times daily, scheduled CYCLOBENZAPRINE HCL 10 MG TABS 803563 CYCLOBENZAPRINE HCL Inactive ACCU-CHEK ROSA INVITR STRP use strips with device to check blood sugars 3 times daily ACCU-CHEK ROSA INVITR STRP GLUCOSE BLOOD Inactive ACCU-CHEK ROSA UZMA Use device to check blood sugars ACCU-CHEK ROSA UZMA BLOOD GLUCOSE MONITORING SUPPL Inactive FLUVOXAMINE MALEATE 100 MG ORAL TABS Take 1/2 tab at noon FLUVOXAMINE MALEATE 100 MG ORAL TABS 772506 FLUVOXAMINE MALEATE Inactive FLUVOXAMINE MALEATE 100 MG TABS Take one (1) tablet by mouth am, 1/2 at noon FLUVOXAMINE MALEATE 100 MG TABS 156491 FLUVOXAMINE MALEATE Inactive BACTROBAN 2 % CREAM Apply to affected area BID for up to 10 days BACTROBAN 2 % CREAM 551299 MUPIROCIN CALCIUM Inactive NOVOFINE 32G X 6 MM MISC use one four times per day NOVOFINE 32G X 6 MM MISC INSULIN PEN NEEDLE Inactive TRAZODONE HCL 100 MG ORAL TABS 1 tab by mouth for sleep TRAZODONE HCL 100 MG ORAL TABS 816304 TRAZODONE HCL Inactive LOVAZA 1 GM CAPS 4 daily (for triglycerides) LOVAZA 1 GM CAPS 266808 [id number]-[id number] ETHYL ESTERS Inactive METFORMIN HCL ER 500 MG FT76A-YZU Take three tablets by mouth everyday METFORMIN HCL ER 500 MG TH77V-CVO METFORMIN HCL Inactive METOPROLOL SUCCINATE 100 MG RJ18E-QTA 1 by mouth daily for blood pressure METOPROLOL SUCCINATE 100 MG VC56R-TEA METOPROLOL SUCCINATE Inactive AMITIZA 24 MCG ORAL CAPS Take one capsule BID for constipation. AMITIZA 24 MCG ORAL CAPS LUBIPROSTONE Inactive TOLTERODINE TARTRATE 2 MG TABS 1 pill twice daily, for bladder TOLTERODINE TARTRATE 2 MG TABS 854220 TOLTERODINE TARTRATE Inactive COLACE 100 MG CAPS 1 pill by mouth twice daily, for constipation COLACE 100 MG CAPS 1805814 DOCUSATE SODIUM Inactive LOMOTIL 2.5-0.025 MG ORAL TABS take 1-2 tabs PO after each stool, no more than 8 in 24 hours LOMOTIL 2.5-0.025 MG ORAL TABS 8214569 DIPHENOXYLATE-ATROPINE Inactive ZOFRAN 4 MG TABS 1 po q4hr PRN Nausea ZOFRAN 4 MG TABS 470248 ONDANSETRON HCL Inactive HYDROCODONE-ACETAMINOPHEN 5-325 MG TABS 2 tabs by mouth three times daily for pain HYDROCODONE-ACETAMINOPHEN 5-325 MG TABS 735368 HYDROCODONE-ACETAMINOPHEN Inactive ZOLPIDEM TARTRATE 10 MG TABS take at bedtime ZOLPIDEM TARTRATE 10 MG TABS 280503 ZOLPIDEM TARTRATE Inactive LISINOPRIL 20 MG TABS 1 BID LISINOPRIL 20 MG TABS 991189 LISINOPRIL Inactive TRAVATAN Z 0.004 % SOLN 1 gtt each eye daily TRAVATAN Z 0.004 % SOLN TRAVOPROST Inactive LATUDA 60 MG ORAL TABS Take one by mouth daily LATUDA 60 MG ORAL TABS LURASIDONE HCL Inactive CEFDINIR 300 MG CAPS by mouth twice a day CEFDINIR 300 MG CAPS 654218 CEFDINIR Inactive AZITHROMYCIN 500 MG SOLR 1 po q day AZITHROMYCIN 500 MG SOLR 42557922093 AZITHROMYCIN Inactive AMOXICILLIN 500 MG CAPS 2 po BID x 10 days AMOXICILLIN 500 MG CAPS 790331 AMOXICILLIN Inactive PENICILLIN V POTASSIUM 500 MG TABS 1 pill by mouth three times daily PENICILLIN V POTASSIUM 500 MG TABS 620840 PENICILLIN V POTASSIUM Inactive KEFLEX 500 MG CAP 1 po BID x 7 days KEFLEX 500 MG CAP 799568 CEPHALEXIN Inactive Immunizations Vaccine Administration Date Value [...] Fluvirin, Fluarix, Agriflu(>=18 yo)) Fluzone (>3 yrs.) [XCC545] Influenza, seasonal, injectable pneumococcal immunization administered Pneumovax 23 [CVX33] pneumococcal polysaccharide vaccine, 23 valent Vital Signs Date Name Value Unit Range Description blood pressure, diastolic - 8462-4 69 mm[Hg] [...] Panel - Chemistry sodium, serum 137 mmol/L 163-766 2910/10/12 potassium, serum 4.8 mmol/L 3.5-5.2 chloride, serum 102 mmol/L 98-107 carbon dioxide, venous blood 27.6 mmol/L 21.0-32.0 blood glucose 168 mg/dL 65-110 calcium, serum 9.0 mg/dL 8.5-10.1 urea nitrogen, blood 15 mg/dL 7-18 creatinine, serum 1.04 mg/dL 0.55-1.30 sodium, serum 138 mmol/L 466-028 4253/11/11 potassium, serum 4.7 mmol/L 3.5-5.2 chloride, serum [...] % 11.6-14.8 platelet count 240 10^3/MM^3 10*3/mm3 671-842 2452/11/11 leukocyte count, blood 9.6 10^3/MM^3 10*3/mm3 4.6-10.2 [...] Acid - Chemistry cholesterol, serum 187 mg/dL 528-644 7931/06/14 triglyceride, serum, fasting 246 mg/dL 30-200 HDL [...] negative Encounters Code Encounter Date Provider Facility CPT-59586 Level 3 Est. Patient 17:40:16 CDT Mima Erazo [facility] CPT-61147 Level 3 Est. Patient 14:34:52 CDT Vanessa Hickey MD [facility] CPT-28175 Level 3 Est. Patient 16:27:51 CDT Mima Erazo [facility] CPT-37178 Level 3 Est. Patient 14:39:00 CLAY CARMAN Vanessa Hickey MD [facility] CPT-20107 Level 2 Est. Patient 18:43:34 CDT Mima Erazo [facility] CPT-61078 Level 3 Est. Patient 16:22:09 CDT C[facility]lle [facility] CPT-21646 Level 4 Est. Patient 17:55:14 CDT Mima Erazo [facility] CPT-19464 Level 2 Est. Patient 17:13:21 CDT Alina Castaneda MD [facility]-28459 Level 3 Est. Patient 14:46:15 CDT Vanessa Hickey MD [facility]-04556 Level 3 Est. Patient 09:34:56 CDT Alina Castaneda MD [facility]-08858 Level 3 Est. Patient 21:40:19 CDT Mima Erazo [place] [facility]-36187 Level 3 Est. Patient 09:26:40 CDT Marvel Charles [facility]-31055 Level 3 Est. Patient 12:36:43 CDT Vanessa Hickey MD [facility]-26197 Level 3 Est. Patient 12:57:49 CDT Vanessa Hickey MD [facility]-31955 Level 3 Est. Patient 00:28:25 CDT Alina Castaneda MD [facility]-79926 Level 2 Est. Patient 12:52:14 CDT Alina Castaneda MD [facility]60210 Level 3 Est. Patient 11:51:18 CLAY CARMAN Alina Castaneda MD [facility]-10654 Level 3 Est. Patient 10:09:22 CLAY CARMAN Alina Castaneda MD [facility]-80016 Level 3 Est. Patient 14:36:26 CLAY CARMAN Marvel Charles [facility]-91129 Level 3 Est. Patient 13:34:47 CLAY CARMAN lAina Castaneda MD [facility]09260 Level 3 Est. Patient 19:52:08 CLAY CARMAN Alina Castaneda MD [facility]-26113 Level 3 Est. Patient 10:01:51 CLAY CARMAN Marvel Charles [facility]-16286 Level 3 Est. Patient 21:54:06 CDT Vanessa Hickey MD [facility]-38587 Level 3 Est. Patient 08:54:46 CDT Alina Castaneda MD [facility]-03911 Level 3 Est. Patient 09:32:11 CDT Marvel Charles [facility]-45437 Level 3 Est. Patient 12:02:49 CDT Alina Castaneda MD PhD [facility]-17404 Level 3 Est. Patient 19:17:33 CDT Alina Castaneda MD [facility]-12333 Level 3 Est. Patient 13:19:10 CDT Marvel Charles [facility]-78496 Level 3 Est. Patient 08:20:05 CDT Alina Castaneda MD [facility]-70272 Level 3 Est. Patient 15:17:18 CDT Alina Castaneda MD [facility]-22797 Level 3 Est. Patient 14:25:36 CLAY CARMAN Marvel Charles [facility] CPT-27440 Level 3 Est. Patient 10:09:15 CLAY CARMAN Marvel Charles [facility]-27951 Level 3 Est. Patient 21:28:43 CDT Alina Castaneda MD PhD [facility] [facility]-20445 Level 3 Est. Patient 15:20:11 CDT [facility]-25838 Level 4 Est. Patient 19:08:12 CDT Alina Castaneda MD [facility]-32266 Level 3 Est. Patient 15:06:39 CDT [facility] CPT-08145 Level 4 Est. Patient 17:48:15 CDT Alina Castaneda MD [facility] CPT-49747 Level 3 Est. Patient 14:53:49 CDT Alina Castaneda MD [facility]-52919 Level 3 Est. Patient 09:35:16 CDT Alina Castaneda MD [facility]-71310 Level 3 Est. Patient 12:23:22 CDT Alina Castaneda MD [facility]-27671 Level 3 Est. Patient 16:19:15 CDT Alina Castaneda MD [facility]-62987 Level 3 Est. Patient 21:39:56 CLAY CARMAN Alina Castaneda MD [facility]-03853 Level 4 Est. Patient 14:12:56 CLAY CARMAN Alina Castaneda MD [facility]-51688 Level 2 Est. Patient 15:34:57 CLAY CARMAN Alina Castaneda MD [facility]-80319 Level 3 Est. Patient 12:17:04 CLAY CARMAN Alina Castaneda MD [facility] CPT-36968 Level 3 Est. Patient 09:18:18 CLAY CARMAN [facility]-17261 Level 2 Est. Patient 21:50:24 CDT Alina Castaneda MD [facility]-95543 Level 3 Est. Patient 09:17:28 CDT [facility]-11674 Level 4 Est. Patient 18:54:02 CDT Alina Castaneda MD [facility]-73196 Level 3 Est. Patient 10:47:10 CDT Alina Castaneda MD [facility] CPT-54802 Level 3 Est. Patient 09:22:20 CDT [facility] CPT-19870 Level 3 Est. Patient 16:39:43 CDT [facility]28555 Level 3 Est. Patient 16:05:16 CDT Alina Castaneda MD [facility] CPT-74931 Level 3 Est. Patient 00:29:15 CDT Alina Castaneda MD [facility]-75470 Level 3 Est. Patient 10:49:22 CLAY CARMAN [facility] CPT-84954 Level 3 Est. Patient 21:30:19 CLAY CARMAN Alina Castaneda MD PhD [facility] CPT-94752 Level 4 Est. Patient 17:04:11 CLAY CARMAN [facility]42843 Level 3 Est. Patient 15:34:11 CLAY CARMAN [facility] Level 2 Est. Patient 12:51:58 CLAY CARMAN Alina Castaneda MD PhD [facility] CPT-54947 Level 3 Est. Patient 13:20:01 CLAY CARMAN Alina Castaneda MD PhD [facility] CPT-09455 Level 3 Est. Patient 09:23:35 CDT Alina Castaneda MD PhD [facility] Procedures Code Procedure Name Date Entry Date Standard Description CPT-TCMM Transitional Care Mgmt-Moderate 10:25:31 CDT CPT-54311 Bladder Scan 14:34:53 CDT CPT-34814 Bladder Scan 14:39:01 CLAY CARMAN CPT-TCMM Transitional Care Mgmt-Moderate 10:30:19 CLAY CARMAN CPT-02840 Bladder Scan 12:36:44 CDT CPT-78564 Bladder Scan 21:54:06 CDT CPT-G0008 Administration of Influenza Virus Vaccine 13:05:26 CDT CPT-48585 Fluzone Quadrivalent Intramuscular Suspension 0.5 ML 13: 05:26 CDT CPT-80123 Administration single or combination vaccine inc oral 11 :49:51 CDT CPT-81969 Pneumovax 11:49:51 CDT CPT-62292 Ribs unilateral 2V 12:37:22 CLAY CARMAN CPT-65627 Chest 2V Frontal and Lat 17:15:26 CDT CPT-35649 Abx/Therapy Injection 18:54:02 CDT CPT-J0696 Rocephin 1000 mg (Ceftriaxone) 16:00:32 CDT CPT-25934 Chest 2V Frontal and Lat 15:26:45 CDT CPT-46427 Chest 2V Frontal and Lat 10:23:27 CDT CPT-29592 Venipuncture Draw Fee 10:11:00 CDT CPT-82681 Administration single or combination vaccine inc oral 11 :56:38 CDT CPT-31233 Influenza split virus > age 3 11:56:38 CDT CPT-58217 Venipuncture Draw Fee 08:49:54 CLAY CARMAN CPT-77932 EKG Trac and Interp 17:54:19 CLAY CARMAN
--- OUTSIDE RECORDS SUMMARY | 2018-07-02 16:09 | XMS REPORT | Clinical Summary ---
Author Author Admin, TERELL Organization [facility] Address Unknown Phone Unavailable Allergies, 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 Kacey BAR CAPTAIN Benign paroxysmal positional vertigo Vertigo, benign paroxysmal position 386.11 Inactive Mima Kacey BAR CAPTAIN Benign paroxysmal positional vertigo High-risk sexual behavior V69.2 Active Alian Castaneda MD PhD High-risk sexual behavior Erectile dysfunction 302.72 Active Alina Castaneda MD PhD Psychosexual dysfunction with inhibited sexual excitement WOUND, OPEN, NOSE ICD-873.20 Inactive Ailna Castaneda MD PhD DIABETES, TYPE 2 ICD-250.00 [...] 10u lunch and supper INSULIN LISPRO (HUMAN) 70279151021 Active Marvel Araceli MARROQUIN Active LATUDA 120 MG ORAL TABS 1 pill by mouth nightly LURASIDONE HCL 56689709283 Active Alina Castaneda MD PhD Active COLACE 100 MG CAPS 1 pill by mouth twice daily, for constipation DOCUSATE SODIUM 13301128269 Active Alina Castaneda MD PhD Active TRUETEST TEST STRP check blood sugars 3x/day GLUCOSE BLOOD 19112353443 Active Malnivia 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 GENERAL SURGERY PHYSICIAN ASSISTANT Active ACCU-CHEK ROSA UZMA Use device to check blood sugars BLOOD GLUCOSE MONITORING SUPPL 16478521859 No Longer Active Marvel 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 GENERAL SURGERY PHYSICIAN ASSISTANT Active ACCU-CHEK ROSA INVITR STRP use strips with device to check blood sugars 3 times daily GLUCOSE BLOOD 08843050344 No Longer Active Brooksnivia Araceli MENDOZAP Active VERAPAMIL HCL ER 180 MG ORAL CR-TABS 1 pill by mouth twice daily, for migraine prevention VERAPAMIL HCL 69986264132 Active Alina Castaneda MD PhD Active CYCLOBENZAPRINE HCL 10 MG TABS 1 tablet by mouth three times daily, scheduled CYCLOBENZAPRINE HCL 35466339264 No Longer Active Alina Castaneda MD PhD Active HUMALOG 100 UNIT/ML SOLN Take 20 units with breakfast, 10u with lunch and suppetr. INSULIN LISPRO (HUMAN) 55225920113 No Longer Active Alina Castaneda MD PhD Active TRUETEST TEST STRP check sugars 4x/day GLUCOSE BLOOD 12760853274 No Longer Active Alina Castaneda MD PhD Active MORPHINE SULFATE 30 MG TABS 1 pill by mouth twice daily, for pain MORPHINE SULFATE 06797089391 Active Mason Loredo MD Active ACYCLOVIR 400 MG ORAL TABS 1 pill three times daily x 5 days, for cold sore outbreak ACYCLOVIR 58060914150 No Longer Active Alina Castaneda MD PhD Active PENICILLIN V POTASSIUM 500 MG TABS 1 pill by mouth three times daily PENICILLIN V POTASSIUM 00199330156 No Longer Active Alina Castaneda MD PhD Active UROXATRAL 10 MG GW65A-FFR Take 1 tablet by mouth daily ALFUZOSIN HCL 06323054999 No Longer Active Alina Castaneda MD PhD Active THIOTHIXENE 5 MG CAPS by mouth twice a day THIOTHIXENE 97650707992 No Longer Active Alina Castaneda MD PhD Active ZYPREXA 7.5 MG TABS 1 at HS OLANZAPINE 40739273498 No Longer Active Alina Castaneda MD PhD Active LEVEMIR 100 UNIT/ML SOLN Take 70 u at 7-8pm INSULIN DETEMIR 23668322395 Active Mallashondaeh Ziglari GENERAL SURGERY PHYSICIAN ASSISTANT Active BD INSULIN SYRINGE 28G X 1/2" 1 ML MISC 1 four times per day INSULIN SYRINGE-NEEDLE U-100 64159235198 Active Maljohn Mackenzieglari GENERAL SURGERY PHYSICIAN ASSISTANT Active TOLTERODINE TARTRATE 2 MG TABS 1 pill twice daily, for bladder TOLTERODINE TARTRATE 04003851071 Active Alina Castaneda MD PhD Active DETROL LA 4 MG [id number] Take 1 tablet by mouth daily TOLTERODINE TARTRATE 28393101583 No Longer Active Alina Castaneda MD PhD Active HYDROCODONE-ACETAMINOPHEN 5-325 MG TABS 2 tabs by mouth three times daily as needed for pain HYDROCODONE-ACETAMINOPHEN 95618662363 Active Alina Castaneda MD PhD Active TERESE CONTOUR TEST STRP monitor blood sugars 3x/day GLUCOSE BLOOD 84192104364 No Longer Active Alina Castaneda MD PhD Active EQL TRUETEST TEST STRP Test blood sugar TID GLUCOSE BLOOD 32301462325 No Longer Active Alina Castaneda MD PhD Active FLUTICASONE PROPIONATE 50 MCG/ACT SUSP 2 sprays each nostril qDay x 30 days FLUTICASONE PROPIONATE 37251996165 No Longer Active Alina Castaneda MD PhD Active IBUPROFEN 200 MG TABS 1 Q 6 hr. PRN IBUPROFEN 23548437368 No Longer Active Alina Castaneda MD PhD Active NIACIN ER 500 MG CR-TABS 4 qHS (for triglycerides) NIACIN 14921835302 No Longer Active Alina Castaneda MD PhD Active ALFUZOSIN HCL ER 10 MG [id number]-OOJ 1 tablet daily ALFUZOSIN HCL 66682501253 Active Vanessa Hickey MD Active CLONAZEPAM 1 MG TABS 1 pill by mouth three times daily CLONAZEPAM 29145627296 Active Alina Castaneda MD PhD Active LOVAZA 1 GM CAPS 4 daily (for triglycerides) [id number]-5-CLXN ETHYL ESTERS 69287408978 Active Mao Rodriguez MD Active SAPHRIS 5 MG SUBL by mouth twice a day ASENAPINE MALEATE 81004111410 No Longer Active Marvel MARROQUIN Active ACETAMINOPHEN 500 MG TABS 2 Q 6 hr. PRN ACETAMINOPHEN 86324949348 No Longer Active Marvel MARROQUIN Active ORPHENADRINE CITRATE ER 100 MG FY04O-IRX 1 every 12 hr. as needed ORPHENADRINE CITRATE 22618770202 No Longer Active Alina Castaneda MD PhD Active NIACIN CR 500 MG CR-TABS 2 qHS NIACIN 51061105098 No Longer Active Alina Castaneda MD PhD Active AMOXICILLIN 500 MG CAPS 2 po BID x 10 days AMOXICILLIN 08340146383 No Longer Active Alina Castaneda MD PhD Active HYDROCODONE-ACETAMINOPHEN 7.5-325 MG TABS 1 four times a day as needed for pain HYDROCODONE-ACETAMINOPHEN 04860842197 No Longer Active Alina Castaneda MD PhD Active METFORMIN HCL ER 500 MG XH43W-OBV Take three tablets by mouth everyday METFORMIN HCL 74526318826 Active Marvel MENDOZAP Active DOXEPIN HCL 10 MG CAPS Take 1 tablet by mouth daily DOXEPIN HCL 59213412873 No Longer Active Salina Han [facility] Active NAVANE 10 MG CAPS 1/2 tablet twice a day THIOTHIXENE No Longer Active Salina Han A Active CYCLOBENZAPRINE HCL 10 MG TABS 1/2 tablet by mouth every 8 hours as needed for muscle spasms CYCLOBENZAPRINE HCL 73560462870 No Longer Active Alina Castaneda MD PhD Active BACTROBAN 2 % CREAM apply to ear and nose twice daily MUPIROCIN CALCIUM 76627593132 No Longer Active Alina Castaneda MD PhD Active HYDROCODONE-ACETAMINOPHEN 5-325 MG TABS take one tablet by mouth every four hours as needed for pain HYDROCODONE-ACETAMINOPHEN 04713504858 No Longer Active Alina Castaneda MD PhD Active ZOLPIDEM TARTRATE 10 MG TABS take at bedtime ZOLPIDEM TARTRATE 18214230623 Active Alina Castaneda MD PhD Active ZYPREXA 5 MG TABS take one tablet by mouth every evening OLANZAPINE 29321429675 No Longer Active Alina Castaneda MD PhD Active ALBUTEROL SULFATE 0.083 % NEBU SOLN one vial per nebulizer TID and PRN cough/ soa ALBUTEROL SULFATE 53789984484 No Longer Active Alina Castaneda MD PhD Active GUAIFENESIN 600 MG FA32N-STN 1 tablet by mouth twice daily if needed for cough GUAIFENESIN 25622574533 No Longer Active Marvel MENDOZAP Active AZITHROMYCIN 500 MG SOLR 1 po q day AZITHROMYCIN 63302666570 No Longer Active Alina Castaneda MD PhD Active METOPROLOL SUCCINATE 100 MG UX52X-APU 1 by mouth daily for blood pressure METOPROLOL SUCCINATE 10338675980 Active Alina Castaneda MD PhD Active PROMETHAZINE-CODEINE 6.25-10 MG/5ML SYRP 1 tsp po q 6 hours prn cough PROMETHAZINE-CODEINE 36248105369 No Longer Active Alina Castaneda MD PhD Active CEFDINIR 300 MG CAPS by mouth twice a day CEFDINIR 92645025362 No Longer Active Alina Castaneda MD PhD Active METFORMIN HCL 500 MG CV90R-NPT Take 3 tablets by mouth everyday METFORMIN HCL 24553359628 No Longer Active Alina Castaneda MD PhD Active LEVEMIR 100 UNIT/ML SOLN 90 units SQ qHS INSULIN DETEMIR 15059579326 No Longer Active Marvel MARROQUIN Active TOPROL XL 100 MG FI84V-OPC 1 @ HS METOPROLOL SUCCINATE 06975084089 No Longer Active Marvel MARROQUIN Active ALLOPURINOL 300 MG TABS Take one by mouth daily ALLOPURINOL 56129670548 Active Alina Castaneda MD PhD Active ZYPREXA 10 MG TABS Take one by mouth daily OLANZAPINE 13271654853 No Longer Active Alina Castaneda MD PhD Active NOVOLOG 100 UNIT/ML SOLN 40 units with every meal INSULIN ASPART 05213048735 No Longer Active Alina Castaneda MD PhD Active VERAPAMIL HCL CR 120 MG TAB CR 1 qPM VERAPAMIL HCL 66220562170 No Longer Active Salina Han A Active ZYPREXA 15 MG TABS Take 1 tablet by mouth daily OLANZAPINE 51780822886 No Longer Active Marvel MARROQUIN Active LISINOPRIL 20 MG TABS 1 BID LISINOPRIL 05986468350 Active Alina Castaneda MD PhD Active ALBUTEROL SULFATE (2.5 MG/3ML) 0.083% NEBU 1 neb tid and prn cough ALBUTEROL SULFATE 67548908561 No Longer Active Alina Castaneda MD PhD Active FLUVOXAMINE MALEATE 100 MG TABS Take one (1) tablet by mouth am, 1/2 at noon, 1 pm FLUVOXAMINE MALEATE 18489577609 Active Alina Castaneda MD PhD Active TRAVATAN Z 0.004 % SOLN 1 gtt each eye daily TRAVOPROST 85522801782 Active CRYSTAL Suarez Active LANTUS 100 UNIT/ML SOLN 60 units sq q hs INSULIN GLARGINE 73550431054 No Longer Active CRYSTAL Suarez Active ALBUTEROL SULFATE (2.5 MG/3ML) 0.083% NEBU 1 neb tid and prn cough ALBUTEROL SULFATE (2.5 MG/3ML) 0.083% NEBU 848068 ALBUTEROL SULFATE Inactive ZYPREXA 15 MG TABS Take 1 tablet by mouth daily ZYPREXA 15 MG TABS 470423 OLANZAPINE Inactive VERAPAMIL HCL CR 120 MG TAB CR 1 qPM VERAPAMIL HCL CR 120 MG TAB CR VERAPAMIL HCL Inactive ZYPREXA 10 MG TABS Take one by mouth daily ZYPREXA 10 MG TABS 030961 OLANZAPINE Inactive TOPROL XL 100 MG FK55A-WHQ 1 @ HS TOPROL XL 100 MG UC50E-LTG METOPROLOL SUCCINATE Inactive LEVEMIR 100 UNIT/ML SOLN 90 units SQ qHS LEVEMIR 100 UNIT/ML SOLN INSULIN DETEMIR Inactive PROMETHAZINE-CODEINE 6.25-10 MG/5ML SYRP 1 tsp po q 6 hours prn cough PROMETHAZINE-CODEINE 6.25-10 MG/5ML SYRP 136036 PROMETHAZINE- CODEINE Inactive GUAIFENESIN 600 MG AZ42B-XON 1 tablet by mouth twice daily if needed for cough GUAIFENESIN 600 MG DV71I-MDE GUAIFENESIN Inactive ALBUTEROL SULFATE 0.083 % NEBU SOLN one vial per nebulizer TID and PRN cough/ soa ALBUTEROL SULFATE 0.083 % NEBU SOLN 298541 ALBUTEROL SULFATE Inactive ZYPREXA 5 MG TABS take one tablet by mouth every evening ZYPREXA 5 MG TABS 471168 OLANZAPINE Inactive HYDROCODONE-ACETAMINOPHEN 5-325 MG TABS take one tablet by mouth every four hours as needed for pain HYDROCODONE-ACETAMINOPHEN 5-325 MG TABS 642208 HYDROCODONE-ACETAMINOPHEN Inactive BACTROBAN 2 % CREAM apply to ear and nose twice daily BACTROBAN 2 % CREAM 983066 MUPIROCIN CALCIUM Inactive CYCLOBENZAPRINE HCL 10 MG TABS 1/2 tablet by mouth every 8 hours as needed for muscle spasms CYCLOBENZAPRINE HCL 10 MG TABS 499380 CYCLOBENZAPRINE HCL Inactive NAVANE 10 MG CAPS 1/2 tablet twice a day NAVANE 10 MG CAPS THIOTHIXENE Inactive DOXEPIN HCL 10 MG CAPS Take 1 tablet by mouth daily DOXEPIN HCL 10 MG CAPS 7177330 DOXEPIN HCL Inactive HYDROCODONE-ACETAMINOPHEN 7.5-325 MG TABS 1 four times a day as needed for pain HYDROCODONE-ACETAMINOPHEN 7.5-325 MG TABS 766171 HYDROCODONE-ACETAMINOPHEN Inactive NIACIN CR 500 MG CR-TABS 2 qHS NIACIN CR 500 MG CR- TABS NIACIN Inactive ORPHENADRINE CITRATE ER 100 MG GI31V-RKK 1 every 12 hr. as needed ORPHENADRINE CITRATE ER 100 MG LG25A-BIR ORPHENADRINE CITRATE Inactive ACETAMINOPHEN 500 MG TABS 2 Q 6 hr. PRN ACETAMINOPHEN 500 MG TABS 541477 ACETAMINOPHEN Inactive SAPHRIS 5 MG SUBL by mouth twice a day SAPHRIS 5 MG SUBL ASENAPINE MALEATE Inactive NIACIN ER 500 MG CR-TABS 4 qHS (for triglycerides) NIACIN ER 500 MG CR-TABS NIACIN Inactive IBUPROFEN 200 MG TABS 1 Q 6 hr. PRN IBUPROFEN 200 MG TABS 211613 IBUPROFEN Inactive FLUTICASONE PROPIONATE 50 MCG/ACT SUSP 2 sprays each nostril qDay x 30 days FLUTICASONE PROPIONATE 50 MCG/ACT SUSP 357826 FLUTICASONE PROPIONATE Inactive EQL TRUETEST TEST STRP Test blood sugar TID EQL TRUETEST TEST STRP GLUCOSE BLOOD Inactive TERESE CONTOUR TEST STRP monitor blood sugars 3x/day TERESE CONTOUR TEST STRP GLUCOSE BLOOD Inactive DETROL LA 4 MG [id number] Take 1 tablet by mouth daily DETROL LA 4 MG QC12L-DBQ TOLTERODINE TARTRATE Inactive ZYPREXA 7.5 MG TABS 1 at HS ZYPREXA 7.5 MG TABS 249831 OLANZAPINE Inactive THIOTHIXENE 5 MG CAPS by mouth twice a day THIOTHIXENE 5 MG CAPS 557465 THIOTHIXENE Inactive UROXATRAL 10 MG JX28R-WQF Take 1 tablet by mouth daily UROXATRAL 10 MG RU58K-SDN ALFUZOSIN HCL Inactive ACYCLOVIR 400 MG ORAL TABS 1 pill three times daily x 5 days, for cold sore outbreak ACYCLOVIR 400 MG ORAL TABS 687865 ACYCLOVIR Inactive TRUETEST TEST STRP check sugars 4x/day TRUETEST TEST STRP GLUCOSE BLOOD Inactive HUMALOG 100 UNIT/ML SOLN Take 20 units with breakfast, 10u with lunch and suppetr. HUMALOG 100 UNIT/ML SOLN INSULIN LISPRO ( HUMAN) Inactive CYCLOBENZAPRINE HCL 10 MG TABS 1 tablet by mouth three times daily, scheduled CYCLOBENZAPRINE HCL 10 MG TABS 129309 CYCLOBENZAPRINE HCL Inactive ACCU-CHEK ROSA INVITR STRP use strips with device to check blood sugars 3 times daily ACCU-CHEK ROSA INVITR STRP GLUCOSE BLOOD Inactive ACCU-CHEK ROSA UZMA Use device to check blood sugars ACCU-CHEK ROSA UZMA BLOOD GLUCOSE MONITORING SUPPL Inactive CEFDINIR 300 MG CAPS by mouth twice a day CEFDINIR 300 MG CAPS 492997 CEFDINIR Inactive AZITHROMYCIN 500 MG SOLR 1 po q day AZITHROMYCIN 500 MG SOLR 077900 AZITHROMYCIN Inactive AMOXICILLIN 500 MG CAPS 2 po BID x 10 days AMOXICILLIN 500 MG CAPS 293885 AMOXICILLIN Inactive PENICILLIN V POTASSIUM 500 MG TABS 1 pill by mouth three times daily PENICILLIN V POTASSIUM 500 MG TABS 428738 PENICILLIN V POTASSIUM Inactive Immunizations Vaccine Administration [...] Fluvirin, Fluarix, Agriflu(>=18 yo)) Fluzone (>3 yrs.) [[id number]] Influenza, seasonal, injectable pneumococcal immunization administered Pneumovax [...] HGBA1C - Chemistry sodium, serum 130 mmol/L 868-370 1149/06/09 potassium, serum 4.0 mmol/L 3.5-5.2 chloride, serum 92 mmol/L 98-107 carbon dioxide, venous blood 22.1 mmol/L 21.0-32.0 blood glucose 60 mg/dL 65-110 calcium, serum 9.5 mg/dL 8.5-10.1 urea nitrogen, blood 14 mg/dL 7-18 creatinine, serum 1.30 mg/dL 0.60-1.30 hemoglobin A1C, blood, as % of total hemoglobin 6.0 % 4.3-6.0 sodium, serum 131 mmol/L 706-470 0362/12/30 potassium, serum 5.0 mmol/L 3.5-5.2 chloride, serum 95 mmol/L 98-107 carbon dioxide, venous blood 26.7 mmol/L 21.0-32.0 blood glucose 112 mg/dL 65-110 calcium, serum 9.2 mg/dL 8.5-10.1 urea nitrogen, blood 12 mg/dL 7-18 creatinine, serum 1.10 mg/dL 0.60-1.30 hemoglobin A1C, blood, as % of total hemoglobin 5.8 % 4.3-6.0 Lab Report: Basic Metabolic Panel, HGBA1C, MICROALBUMIN - Chemistry sodium, serum 137 mmol/L 592-299 4366/05/19 potassium, serum 5.2 mmol/L 3.5-5.2 chloride, serum [...] microalbumin, urine 10 0-19 Lab Report: Chlamydia/GC APTIMA/99081, HIV-1/2 Agn/Dominga/29591, RPR (DX) W ... - Chemistry hepatitis B surface antigen NON-REACTIVE NON-REACTIVE Lab Report: Chlamydia/GC APTIMA/73063, HIV-1/2 Agn/Dominga/47293, RPR (DX) W ... - Lab chlamydia DNA probe NOT DETECTED NOT DETECTED Lab Report: Chlamydia/GC APTIMA/85966, HIV-1/2 Agn/Dominga/95655, RPR (DX) W ... - Microbiology Neisseria gonorrhoeae DNA probe NOT DETECTED NOT DETECTED Lab Report: Chlamydia/GC APTIMA/62043, HIV-1/2 Agn/Dominga/34360, RPR (DX) W ... - Serology rapid plasma reagin antibody titer NON-REACTIVE NON-REACTIVE Lab Report: Comp. Metabolic Panel - Chemistry sodium, serum 127 mmol/L 430-181 6965/10/27 potassium, serum 4.1 mmol/L 3.5-5.2 chloride, serum [...] mg/g mg/g{creat} 0-29 cholesterol, serum 131 mg/dL 190-567 3846/06/03 triglyceride, serum, fasting 383 mg/dL 30-200 HDL [...] mg/dL Encounters Code Encounter Date Provider Facility CPT-86380 Level 3 Est. Patient 09:34:56 CDT Alina Castaneda MD PhD [facility] CPT-17828 Level 3 Est. Patient 21:40:19 CDT Mima Erazo APRN [facility] CPT-28396 Level 3 Est. Patient 09:26:40 CDT Marvel MARROQUIN [facility] CPT-53532 Level 3 Est. Patient 12:36:43 CDT Vanessa Hickey MD -79385 Level 3 Est. Patient 12:57:49 CDT Vanessa Hickey MD -58608 Level 3 Est. Patient 00:28:25 CDT Alina Castaneda MD [facility]-49498 Level 2 Est. Patient 12:52:14 CDT Alina Castaneda MD [facility]-01496 Level 3 Est. Patient 11:51:18 SACK MAKER Alina Castaneda MD [facility]-86693 Level 3 Est. Patient 10:09:22 SACK MAKER Alina Castaneda MD [facility]98902 Level 3 Est. Patient 14:36:26 SACK MAKER Marvel Charles [facility]-96284 Level 3 Est. Patient 13:34:47 SACK MAKER Alina Castaneda MD [facility]-93660 Level 3 Est. Patient 19:52:08 SACK MAKER Alina Castaneda MD [facility]12296 Level 3 Est. Patient 10:01:51 SACK MAKER Marvel Charles [facility]-00854 Level 3 Est. Patient 21:54:06 CDT Vanessa Hickey MD -58893 Level 3 Est. Patient 08:54:46 CDT Alina Castaneda MD [facility]13631 Level 3 Est. Patient 09:32:11 CDT Marvel Charles [facility]-06310 Level 3 Est. Patient 12:02:49 CDT Alina Castaneda MD [facility]37784 Level 3 Est. Patient 19:17:33 CDT Alina Castaneda MD [facility]67197 Level 3 Est. Patient 13:19:10 CDT Marvel Charles [facility]-17917 Level 3 Est. Patient 08:20:05 CDT Alina Castaneda MD [facility]-12173 Level 3 Est. Patient 15:17:18 CDT Alina Castaneda MD [facility]-89443 Level 3 Est. Patient 14:25:36 SACK MAKER Marvel Charles [facility]-42805 Level 3 Est. Patient 10:09:15 SACK MAKER Marvel Charles [facility]-00480 Level 3 Est. Patient 21:28:43 CDT Alina Castaneda MD [facility]-25551 Level 3 Est. Patient 15:20:[address] [facility] Level 4 Est. Patient 19:08:12 CDT Alina Castaneda MD [facility]-80128 Level 3 Est. Patient 15:06:39 CDT Marvel Charles [facility]-20978 Level 4 Est. Patient 17:48:15 CDT Alina Castaneda MD [facility]-27151 Level 3 Est. Patient 14:53:49 CDT Alina Castaneda MD [facility]-06545 Level 3 Est. Patient 09:35:16 CDT Alina Castaneda MD [facility]-74215 Level 3 Est. Patient 12:23:22 CDT Alina Castaneda MD [facility]-18507 Level 3 Est. Patient 16:19:15 CDT Alina Castaneda MD [facility]-16177 Level 3 Est. Patient 21:39:56 SACK MAKER Alina Castaneda MD [facility]-59826 Level 4 Est. Patient 14:12:56 SACK MAKER Alina Castaneda MD [facility]-45537 Level 2 Est. Patient 15:34:57 SACK MAKER Alina Castaneda MD [facility]-41867 Level 3 Est. Patient 12:17:04 SACK MAKER Alina Castaneda MD [facility]-59848 Level 3 Est. Patient 09:18:18 SACK MAKER Marevl Charles [facility]-58203 Level 2 Est. Patient 21:50:24 CDT Alina Castaneda MD [facility]-29471 Level 3 Est. Patient 09:17:28 CDT Marvel Charles [facility]-77118 Level 4 Est. Patient 18:54:02 CDT Alina Castaneda MD [facility]-12922 Level 3 Est. Patient 10:47:10 CDT Alina Castaneda MD [facility]-38499 Level 3 Est. Patient 09:22:20 CDT Marvel Charles [facility]-36954 Level 3 Est. Patient 16:39:43 CDT Marvel Charles [facility]-32388 Level 3 Est. Patient 16:05:16 CDT Alina Castaneda MD [facility]-71488 Level 3 Est. Patient 00:29:15 CDT Alina Castaneda MD [facility]-28222 Level 3 Est. Patient 10:49:22 SACK MAKER Marvel Charles [facility]-41860 Level 3 Est. Patient 21:30:19 SACK MAKER Alina Castaneda MD [facility] CPT-73613 Level 4 Est. Patient 17:04:11 SACK MAKER Brooksnivia Charles [facility] CPT-30103 Level 3 Est. Patient 15:34:11 SACK MAKER Brooksnivia Mackenzieestela [facility] CPT-78074 Level 2 Est. Patient 12:51:58 SACK MAKER Alina Castaneda MD [facility] CPT-31850 Level 3 Est. Patient 13:20:01 SACK MAKER Alina Castaneda MD [facility] CPT-04849 Level 3 Est. Patient 09:23:35 CDT Alina Castaneda MD [facility] Procedures Code Procedure Name Date Entry Date Standard Description CPT-80221 Bladder Scan 12:36:44 CDT CPT-04145 Bladder Scan 21:54:06 CDT CPT-G0008 Administration of Influenza Virus Vaccine 13:05:26 CDT CPT-72095 Fluzone Quadrivalent Intramuscular Suspension 0.5 ML 13: 05:26 CDT CPT-62438 Administration single or combination vaccine inc oral 11 :49:51 CDT CPT-30768 Pneumovax 11:49:51 CDT CPT-89992 Ribs unilateral 2V 12:37:22 SACK MAKER CPT-40316 Chest 2V Frontal and Lat 17:15:26 CDT CPT-18379 Abx/Therapy Injection 18:54:02 CDT CPT-J0696 Rocephin 1000 mg (Ceftriaxone) 16:00:32 CDT CPT-34661 Chest 2V Frontal and Lat 15:26:45 CDT CPT-74125 Chest 2V Frontal and Lat 10:23:27 CDT CPT-64031 Venipuncture Draw Fee 10:11:00 CDT CPT-16391 Administration single or combination vaccine inc oral 11 :56:38 CDT CPT-50972 Influenza split virus > age 3 11:56:38 CDT CPT-83707 Venipuncture Draw Fee 08:49:54 SACK MAKER CPT-24432 EKG Trac and Interp 17:54:19 SACK MAKER
--- OUTSIDE RECORDS SUMMARY | 2018-07-02 16:11 | XMS REPORT | Clinical Summary ---
Author Author Admin, TERELL Organization [facility] [place] Address Unknown Phone Unavailable Allergies, Adverse Reactions, 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 Erazo [employer] Benign paroxysmal positional vertigo Vertigo, benign paroxysmal position 386.11 Inactive Mima Erazo [employer] Benign paroxysmal positional vertigo High-risk sexual behavior V69.2 Active Alina Castaneda MD PhD High-risk sexual behavior Erectile dysfunction 302.72 Active Alina Castaneda MD PhD Psychosexual dysfunction with inhibited sexual excitement Constipation 564.00 Active Alina Castaneda MD PhD Constipation, unspecified Skin lesion 709.9 Active Alina Castaneda MD PhD Unspecified disorder of skin and subcutaneous tissue Malaise and fatigue 780.79 Active Cherelle Speaks [employer] Other malaise and fatigue Diarrhea 787.91 Active Cherelle Speaks [employer] Diarrhea PHARYNGITIS 462 Active Cherelle Speaks [employer] Acute pharyngitis Colitis 558.9 Active Mima Erazo [employer] Other and unspecified noninfectious gastroenteritis and [...] LANCETS 30G MISC 3x a day LANCETS 78432839555 Active [employer] 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 MICA LAMINATING MACHINE FEEDER Active TRUE METRIX METER W/DEVICE KIT Check blood sugars 3x/day BLOOD GLUCOSE MONITORING SUPPL 74985586002 Active Zaineh 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 MICA LAMINATING MACHINE FEEDER Active TRUE METRIX BLOOD GLUCOSE TEST INVITR STRP Check blood sugars 3x/day. GLUCOSE BLOOD 18691435188 Active Brooksiheh 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 MICA LAMINATING MACHINE FEEDER Active VITAMIN D 2000 UNIT ORAL CAPS Take one by mouth daily CHOLECALCIFEROL 46927773720 Active Mima Yokum [employer] Active LATUDA 60 MG ORAL TABS Take one by mouth daily LURASIDONE HCL 23444318004 No Longer Active Mima Yokum [employer] Active HUMALOG KWIKPEN 100 UNIT/ML SC SOPN sliding scale if needed INSULIN LISPRO (HUMAN) 08426815099 Active Mima Yokum [employer] Active MORPHINE SULFATE 30 MG ORAL TABS by mouth twice a day MORPHINE SULFATE 60342562859 Active Mima Yokum [employer] Active TRAZODONE HCL 100 MG TABS 1 every night to prevent headaches TRAZODONE HCL 14588230349 Active Gabrielle Marquez TIRE REBUILDER Active LATUDA 60 MG ORAL TABS 1 tab daily LURASIDONE HCL 25809019241 Active Gabrielle Littlel TIRE REBUILDER Active CLONAZEPAM 1 MG TABS 1 pill by mouth three times daily CLONAZEPAM 07017653435 Active Gabrielle Littlel TIRE REBUILDER Active [facility] MILK OF MAGNESIA 400 MG/5ML ORAL SUSP 30ml by mouth bid prn MAGNESIUM HYDROXIDE 91173458899 Active Mason Loredo MD Active TYLENOL 8 HOUR 650 MG ORAL CR-TABS 1 tab QID prn ACETAMINOPHEN 72735289019 Active Mason Loredo MD Active MYLANTA GAS RELIEF MAXIMUM STR 125 MG ORAL CAPS 30cc every 4 hours prn 12/01 SIMETHICONE 74203144411 Active Mason Loredo MD Active IMODIUM A-D 2 MG ORAL TABS 1 tab QID as needed LOPERAMIDE HCL 15485007252 Active Mason Loredo MD Active FLUVOXAMINE MALEATE 50 MG ORAL TABS 1 tab by mouth daily FLUVOXAMINE MALEATE 35925926336 Active Mason Loredo MD Active TRAVATAN Z 0.004 % SOLN 1 gtt each eye daily TRAVOPROST 56248611531 No Longer Active Mason Loredo MD Active LISINOPRIL 20 MG TABS 1 BID LISINOPRIL 38019408337 No Longer Active Mason Loredo MD Active LEVEMIR FLEXTOUCH 100 UNIT/ML SC SOPN 60 units SQ each evening, for diabetes INSULIN DETEMIR 40077130417 Active Desi Nicholson Active ZOLPIDEM TARTRATE 10 MG TABS take at bedtime ZOLPIDEM TARTRATE 53912699343 No Longer Active Mason Loredo MD Active HYDROCODONE-ACETAMINOPHEN 5-325 MG TABS 2 tabs by mouth three times daily for pain HYDROCODONE-ACETAMINOPHEN 74884413667 No Longer Active Mason Loredo MD Active ZOFRAN 4 MG TABS 1 po q4hr PRN Nausea ONDANSETRON HCL 61610786988 No Longer Active Mason Loredo MD Active LOMOTIL 2.5-0.025 MG ORAL TABS take 1-2 tabs PO after each stool, no more than 8 in 24 hours DIPHENOXYLATE-ATROPINE 72800179728 No Longer Active Mason Loredo MD Active COLACE 100 MG CAPS 1 pill by mouth twice daily, for constipation DOCUSATE SODIUM 78983733431 No Longer Active Mimacecily Erazo APRN Active FLONASE ALLERGY RELIEF 50 MCG/ACT NASAL SUSP One spray each nostril BID x 1 week then daily FLUTICASONE PROPIONATE 09441793857 Active Mima Yokum [employer] Active BD PEN NEEDLE MINI U/F 31G X 5 MM MISC 4 a day INSULIN PEN NEEDLE 12348594898 Active Mallashondaeh Ziglari MICA LAMINATING MACHINE FEEDER Active AMITIZA 24 MCG ORAL CAPS Take one capsule BID for constipation LUBIPROSTONE 59170169083 Active Mimacecily Erazo APRN Active TRUEPLUS LANCETS 30G MISC 3 a day LANCETS 80328417518 Active Maljohn Ziglari MICA LAMINATING MACHINE FEEDER Active TOLTERODINE TARTRATE 2 MG TABS 1 pill twice daily, for bladder TOLTERODINE TARTRATE 07310087915 No Longer Active Vanessa Hickey MD Active AMITIZA 24 MCG ORAL CAPS Take one capsule BID for constipation. LUBIPROSTONE 16570023124 No Longer Active Vanessa Hickey MD Active FLUVOXAMINE MALEATE 100 MG ORAL TABS take one tab every AM et HS, and take 1/ 2 tab at noon FLUVOXAMINE MALEATE 51053178325 Active Grace ROJAS Active METOPROLOL SUCCINATE 100 MG [id number] 1 by mouth daily for blood pressure METOPROLOL SUCCINATE 68660035413 No Longer Active Grace ROJAS Active METFORMIN HCL ER 500 MG [id number]-UXR Take three tablets by mouth everyday METFORMIN HCL 71812506912 No Longer Active Grace ROJAS Active LOVAZA 1 GM CAPS 4 daily (for triglycerides) OMEGA-3- ACID ETHYL ESTERS 70081654242 No Longer Active Grace Azam RMA Active TRAZODONE HCL 100 MG ORAL TABS 1 tab by mouth for sleep TRAZODONE HCL 39175439985 No Longer Active Grace Azam RMA Active NOVOFINE 32G X 6 MM MISC use one four times per day INSULIN PEN NEEDLE 15948683332 No Longer Active Grace Azam RMA Active BACTROBAN 2 % CREAM Apply to affected area BID for up to 10 days MUPIROCIN CALCIUM 22837321693 No Longer Active Grace Azam RMA Active KEFLEX 500 MG CAP 1 po BID x 7 days CEPHALEXIN 77421691408 No Longer Active Cherelle Speaks [employer] Active FLUVOXAMINE MALEATE 100 MG TABS Take one (1) tablet by mouth am, 1/2 at noon FLUVOXAMINE MALEATE 72925148259 No Longer Active Mima Yokum [employer] Active CORICIDIN HBP CONGESTION/COUGH 10-200 MG ORAL CAPS Take as directed on box as needed for cold/flu symptoms DEXTROMETHORPHAN-GUAIFENESIN 77093420936 Active Cherelle Speaks [employer] Active OMEGA-3 300 MG ORAL CAPS 4 caps by mouth daily OMEGA-3 FATTY ACIDS 78067562379 Active Mima Yokum [employer] Active FLUVOXAMINE MALEATE 100 MG ORAL TABS Take 1/2 tab at noon FLUVOXAMINE MALEATE 40465204674 No Longer Active Cherelle Speaks [employer] OPERATOR Active [facility] LUBRICANT EYE DROPS 0.4-0.3 % OPHTH SOLN POLYETHYL GLYCOL-PROPYL GLYCOL 12868619545 Active Mima Yokum [employer] Active MIRALAX POWD 17g by mouth daily, for constipation POLYETHYLENE GLYCOL 3350 82436329032 Active Alina Castaneda MD PhD Active TRUETEST TEST STRP check blood sugars 3x/day GLUCOSE BLOOD 62522775092 Active Mallashondaeh Ziglari MICA LAMINATING MACHINE FEEDER Active ACCU-CHEK ROSA UZMA Use device to check blood sugars BLOOD GLUCOSE MONITORING SUPPL 07955547316 No Longer Active Maljohn Ziglari MICA LAMINATING MACHINE FEEDER Active ACCU-CHEK ROSA INVITR STRP use strips with device to check blood sugars 3 times daily GLUCOSE BLOOD 32462883496 No Longer Active Brooksnivia Mackenzieglari MICA LAMINATING MACHINE FEEDER Active VERAPAMIL HCL ER 180 MG ORAL CR-TABS 1 pill by mouth twice daily, for migraine prevention VERAPAMIL HCL 65447634685 Active Mima Erazo [employer] Active CYCLOBENZAPRINE HCL 10 MG TABS 1 tablet by mouth three times daily, scheduled CYCLOBENZAPRINE HCL 95882267862 No Longer Active Alina Castaneda MD PhD Active HUMALOG 100 UNIT/ML SOLN Take 20 units with breakfast, 10u with lunch and suppetr. INSULIN LISPRO (HUMAN) 98546557419 No Longer Active Alina Castaneda MD PhD Active TRUETEST TEST STRP check sugars 4x/day GLUCOSE BLOOD 83258037016 No Longer Active Alina Castaneda MD PhD Active MORPHINE SULFATE 30 MG TABS 1 pill by mouth twice daily, for pain MORPHINE SULFATE 34715465365 No Longer Active Mason Loredo MD Active ACYCLOVIR 400 MG ORAL TABS 1 pill three times daily x 5 days, for cold sore outbreak ACYCLOVIR 80240650816 No Longer Active Alina Castaneda MD PhD Active PENICILLIN V POTASSIUM 500 MG TABS 1 pill by mouth three times daily PENICILLIN V POTASSIUM 81816919740 No Longer Active Alina Castaneda MD PhD Active UROXATRAL 10 MG [id number] Take 1 tablet by mouth daily ALFUZOSIN HCL 77573360133 No Longer Active Alina Castaneda MD PhD Active THIOTHIXENE 5 MG CAPS by mouth twice a day THIOTHIXENE 50881558624 No Longer Active Alina Castaneda MD PhD Active ZYPREXA 7.5 MG TABS 1 at HS OLANZAPINE 77845779764 No Longer Active Alina Castaneda MD PhD Active BD INSULIN SYRINGE 28G X 1/2" 1 ML MISC 1 four times per day INSULIN SYRINGE-NEEDLE U-100 72237967289 Active Maliheh Ziglari MICA LAMINATING MACHINE FEEDER Active DETROL LA 4 MG AD70I-XJV Take 1 tablet by mouth daily TOLTERODINE TARTRATE 22542068176 No Longer Active Alina Castaneda MD PhD Active TERESE CONTOUR TEST STRP monitor blood sugars 3x/day GLUCOSE BLOOD 39606777445 No Longer Active Alina Castaneda MD PhD Active EQL TRUETEST TEST STRP Test blood sugar TID GLUCOSE BLOOD 92556674543 No Longer Active Alina Castaneda MD PhD Active FLUTICASONE PROPIONATE 50 MCG/ACT SUSP 2 sprays each nostril qDay x 30 days FLUTICASONE PROPIONATE 64105143554 No Longer Active Alina Castaneda MD PhD Active IBUPROFEN 200 MG TABS 1 Q 6 hr. PRN IBUPROFEN 58050732716 No Longer Active Alina Castaneda MD PhD Active NIACIN ER 500 MG CR-TABS 4 qHS (for triglycerides) NIACIN 67941827214 No Longer Active Alian Castaneda MD PhD Active ALFUZOSIN HCL ER 10 MG [id number] 1 tablet daily ALFUZOSIN HCL 36519712025 Active Mima Vadimum [employer] OPERATOR Active SAPHRIS 5 MG SUBL by mouth twice a day ASENAPINE MALEATE 16231644216 No Longer Active Marvel Mackenzieglari MICA LAMINATING MACHINE FEEDER Active ACETAMINOPHEN 500 MG TABS 2 Q 6 hr. PRN ACETAMINOPHEN 66130459712 No Longer Active Maliheh Ziglari MICA LAMINATING MACHINE FEEDER Active ORPHENADRINE CITRATE ER 100 MG [id number] 1 every 12 hr. as needed ORPHENADRINE CITRATE 53653971656 No Longer Active Alina Castaneda MD PhD Active NIACIN CR 500 MG CR-TABS 2 qHS NIACIN 89556408782 No Longer Active Alina Castaneda MD PhD Active AMOXICILLIN 500 MG CAPS 2 po BID x 10 days AMOXICILLIN 86535190203 No Longer Active Alina Castaneda MD PhD Active HYDROCODONE-ACETAMINOPHEN 7.5-325 MG TABS 1 four times a day as needed for pain HYDROCODONE-ACETAMINOPHEN 22136738697 No Longer Active Alina Castaneda MD PhD Active DOXEPIN HCL 10 MG CAPS Take 1 tablet by mouth daily DOXEPIN HCL 69508951459 No Longer Active Salina Han [facility] Active NAVANE 10 MG CAPS 1/2 tablet twice a day THIOTHIXENE No Longer Active Salina Han [facility] Active CYCLOBENZAPRINE HCL 10 MG TABS 1/2 tablet by mouth every 8 hours as needed for muscle spasms CYCLOBENZAPRINE HCL 39686089519 No Longer Active Alina Castaneda MD PhD Active BACTROBAN 2 % CREAM apply to ear and nose twice daily MUPIROCIN CALCIUM 13831335780 No Longer Active Alina Castaneda MD PhD Active HYDROCODONE-ACETAMINOPHEN 5-325 MG TABS take one tablet by mouth every four hours as needed for pain HYDROCODONE-ACETAMINOPHEN 81150992271 No Longer Active Alina Castaneda MD PhD Active ZYPREXA 5 MG TABS take one tablet by mouth every evening OLANZAPINE 85924753789 No Longer Active Alina Castaneda MD PhD Active ALBUTEROL SULFATE 0.083 % NEBU SOLN one vial per nebulizer TID and PRN cough/ soa ALBUTEROL SULFATE 54882541490 No Longer Active Alina Castaneda MD PhD Active GUAIFENESIN 600 MG [id number]-JCN 1 tablet by mouth twice daily if needed for cough GUAIFENESIN 16177263015 No Longer Active Marvel MARROQUIN Active AZITHROMYCIN 500 MG SOLR 1 po q day AZITHROMYCIN 57492663255 No Longer Active Alina Castaneda MD PhD Active PROMETHAZINE-CODEINE 6.25-10 MG/5ML SYRP 1 tsp po q 6 hours prn cough PROMETHAZINE-CODEINE 04140620011 No Longer Active Alina Castaneda MD PhD Active CEFDINIR 300 MG CAPS by mouth twice a day CEFDINIR 52542222920 No Longer Active Alina Castaneda MD PhD Active METFORMIN HCL 500 MG [id number] Take 3 tablets by mouth everyday METFORMIN HCL 12537746843 No Longer Active Alina Castaneda MD PhD Active LEVEMIR 100 UNIT/ML SOLN 90 units SQ qHS INSULIN DETEMIR 47489725920 No Longer Active Marvel MARROQUIN Active TOPROL XL 100 MG [id number]-VGV 1 @ HS METOPROLOL SUCCINATE 25585502704 No Longer Active Marvel MARROQUIN Active ALLOPURINOL 300 MG TABS Take one by mouth daily ALLOPURINOL 49332199525 Active Mima Vadimjerrell [employer] OPERATOR Active ZYPREXA 10 MG TABS Take one by mouth daily OLANZAPINE 85420126447 No Longer Active Alina Castaneda MD PhD Active NOVOLOG 100 UNIT/ML SOLN 40 units with every meal INSULIN ASPART 65191779897 No Longer Active Alina Castaneda MD PhD Active VERAPAMIL HCL CR 120 MG TAB CR 1 qPM VERAPAMIL HCL 40296119801 No Longer Active Salina ROJAS Active ZYPREXA 15 MG TABS Take 1 tablet by mouth daily OLANZAPINE 71175485272 No Longer Active Marvel MARROQUIN Active ALBUTEROL SULFATE (2.5 MG/3ML) 0.083% NEBU 1 neb tid and prn cough ALBUTEROL SULFATE 54195201775 No Longer Active Alina Castaneda MD PhD Active LANTUS 100 UNIT/ML SOLN 60 units sq q hs INSULIN GLARGINE 95753911983 No Longer Active CRYSTAL Suarez Active ALBUTEROL SULFATE (2.5 MG/3ML) 0.083% NEBU 1 neb tid and prn cough ALBUTEROL SULFATE (2.5 MG/3ML) 0.083% NEBU 094421 ALBUTEROL SULFATE Inactive ZYPREXA 15 MG TABS Take 1 tablet by mouth daily ZYPREXA 15 MG TABS 542392 OLANZAPINE Inactive VERAPAMIL HCL CR 120 MG TAB CR 1 qPM VERAPAMIL HCL CR 120 MG TAB CR VERAPAMIL HCL Inactive ZYPREXA 10 MG TABS Take one by mouth daily ZYPREXA 10 MG TABS 996157 OLANZAPINE Inactive TOPROL XL 100 MG [id number]-OSE 1 @ HS TOPROL XL 100 MG [id number]-FHA METOPROLOL SUCCINATE Inactive LEVEMIR 100 UNIT/ML SOLN 90 units SQ qHS LEVEMIR 100 UNIT/ML SOLN INSULIN DETEMIR Inactive PROMETHAZINE-CODEINE 6.25-10 MG/5ML SYRP 1 tsp po q 6 hours prn cough PROMETHAZINE-CODEINE 6.25-10 MG/5ML SYRP 590381 PROMETHAZINE- CODEINE Inactive GUAIFENESIN 600 MG [id number]-DJF 1 tablet by mouth twice daily if needed for cough GUAIFENESIN 600 MG [id number]-SSN GUAIFENESIN Inactive ALBUTEROL SULFATE 0.083 % NEBU SOLN one vial per nebulizer TID and PRN cough/ soa ALBUTEROL SULFATE 0.083 % NEBU SOLN 758393 ALBUTEROL SULFATE Inactive ZYPREXA 5 MG TABS take one tablet by mouth every evening ZYPREXA 5 MG TABS 151671 OLANZAPINE Inactive HYDROCODONE-ACETAMINOPHEN 5-325 MG TABS take one tablet by mouth every four hours as needed for pain HYDROCODONE-ACETAMINOPHEN 5-325 MG TABS 891735 HYDROCODONE-ACETAMINOPHEN Inactive BACTROBAN 2 % CREAM apply to ear and nose twice daily BACTROBAN 2 % CREAM 540954 MUPIROCIN CALCIUM Inactive CYCLOBENZAPRINE HCL 10 MG TABS 1/2 tablet by mouth every 8 hours as needed for muscle spasms CYCLOBENZAPRINE HCL 10 MG TABS 815200 CYCLOBENZAPRINE HCL Inactive NAVANE 10 MG CAPS 1/2 tablet twice a day NAVANE 10 MG CAPS THIOTHIXENE Inactive DOXEPIN HCL 10 MG CAPS Take 1 tablet by mouth daily DOXEPIN HCL 10 MG CAPS 5678593 DOXEPIN HCL Inactive HYDROCODONE-ACETAMINOPHEN 7.5-325 MG TABS 1 four times a day as needed for pain HYDROCODONE-ACETAMINOPHEN 7.5-325 MG TABS 356290 HYDROCODONE-ACETAMINOPHEN Inactive NIACIN CR 500 MG CR-TABS 2 qHS NIACIN CR 500 MG CR- TABS NIACIN Inactive ORPHENADRINE CITRATE ER 100 MG NV90M-TYP 1 every 12 hr. as needed ORPHENADRINE CITRATE ER 100 MG [id number]-GXI ORPHENADRINE CITRATE Inactive ACETAMINOPHEN 500 MG TABS 2 Q 6 hr. PRN ACETAMINOPHEN 500 MG TABS 898809 ACETAMINOPHEN Inactive SAPHRIS 5 MG SUBL by mouth twice a day SAPHRIS 5 MG SUBL ASENAPINE MALEATE Inactive NIACIN ER 500 MG CR-TABS 4 qHS (for triglycerides) NIACIN ER 500 MG CR-TABS NIACIN Inactive IBUPROFEN 200 MG TABS 1 Q 6 hr. PRN IBUPROFEN 200 MG TABS 739247 IBUPROFEN Inactive FLUTICASONE PROPIONATE 50 MCG/ACT SUSP 2 sprays each nostril qDay x 30 days FLUTICASONE PROPIONATE 50 MCG/ACT SUSP 9548109 FLUTICASONE PROPIONATE Inactive EQL TRUETEST TEST STRP Test blood sugar TID EQL TRUETEST TEST STRP GLUCOSE BLOOD Inactive TERESE CONTOUR TEST STRP monitor blood sugars 3x/day TERESE CONTOUR TEST STRP GLUCOSE BLOOD Inactive DETROL LA 4 MG [id number]-ZBC Take 1 tablet by mouth daily DETROL LA 4 MG SM51E-VFR TOLTERODINE TARTRATE Inactive ZYPREXA 7.5 MG TABS 1 at HS ZYPREXA 7.5 MG TABS 523115 OLANZAPINE Inactive THIOTHIXENE 5 MG CAPS by mouth twice a day THIOTHIXENE 5 MG CAPS 356976 THIOTHIXENE Inactive UROXATRAL 10 MG AI41N-GBQ Take 1 tablet by mouth daily UROXATRAL 10 MG QF76X-PBT ALFUZOSIN HCL Inactive ACYCLOVIR 400 MG ORAL TABS 1 pill three times daily x 5 days, for cold sore outbreak ACYCLOVIR 400 MG ORAL TABS 755905 ACYCLOVIR Inactive TRUETEST TEST STRP check sugars 4x/day TRUETEST TEST STRP GLUCOSE BLOOD Inactive HUMALOG 100 UNIT/ML SOLN Take 20 units with breakfast, 10u with lunch and suppetr. HUMALOG 100 UNIT/ML SOLN INSULIN LISPRO ( HUMAN) Inactive CYCLOBENZAPRINE HCL 10 MG TABS 1 tablet by mouth three times daily, scheduled CYCLOBENZAPRINE HCL 10 MG TABS 949505 CYCLOBENZAPRINE HCL Inactive ACCU-CHEK ROSA INVITR STRP use strips with device to check blood sugars 3 times daily ACCU-CHEK ROSA INVITR STRP GLUCOSE BLOOD Inactive ACCU-CHEK ROSA UZMA Use device to check blood sugars ACCU-CHEK ROSA UZMA BLOOD GLUCOSE MONITORING SUPPL Inactive FLUVOXAMINE MALEATE 100 MG ORAL TABS Take 1/2 tab at noon FLUVOXAMINE MALEATE 100 MG ORAL TABS 244018 FLUVOXAMINE MALEATE Inactive FLUVOXAMINE MALEATE 100 MG TABS Take one (1) tablet by mouth am, 1/2 at noon FLUVOXAMINE MALEATE 100 MG TABS 142441 FLUVOXAMINE MALEATE Inactive BACTROBAN 2 % CREAM Apply to affected area BID for up to 10 days BACTROBAN 2 % CREAM 358051 MUPIROCIN CALCIUM Inactive NOVOFINE 32G X 6 MM MISC use one four times per day [facility] 32G X [facility] Inactive TRAZODONE HCL 100 MG ORAL TABS 1 tab by mouth for sleep TRAZODONE HCL 100 MG ORAL TABS 201148 TRAZODONE HCL Inactive LOVAZA 1 GM CAPS 4 daily (for triglycerides) LOVAZA 1 GM CAPS 696275 QSCHN-7-HDYZ ETHYL ESTERS Inactive METFORMIN HCL ER 500 MG CH12U-LIN Take three tablets by mouth everyday METFORMIN HCL ER 500 MG NQ41Y-GLM METFORMIN HCL Inactive METOPROLOL SUCCINATE 100 MG WS90K-BEH 1 by mouth daily for blood pressure METOPROLOL SUCCINATE 100 MG VQ69N-EJT METOPROLOL SUCCINATE Inactive AMITIZA 24 MCG ORAL CAPS Take one capsule BID for constipation. AMITIZA 24 MCG ORAL CAPS LUBIPROSTONE Inactive TOLTERODINE TARTRATE 2 MG TABS 1 pill twice daily, for bladder TOLTERODINE TARTRATE 2 MG TABS 901751 TOLTERODINE TARTRATE Inactive COLACE 100 MG CAPS 1 pill by mouth twice daily, for constipation COLACE 100 MG CAPS 9450415 DOCUSATE SODIUM Inactive LOMOTIL 2.5-0.025 MG ORAL TABS take 1-2 tabs PO after each stool, no more than 8 in 24 hours LOMOTIL 2.5-0.025 MG ORAL TABS 5472628 DIPHENOXYLATE-ATROPINE Inactive ZOFRAN 4 MG TABS 1 po q4hr PRN Nausea ZOFRAN 4 MG TABS 418172 ONDANSETRON HCL Inactive HYDROCODONE-ACETAMINOPHEN 5-325 MG TABS 2 tabs by mouth three times daily for pain HYDROCODONE-ACETAMINOPHEN 5-325 MG TABS 714885 HYDROCODONE-ACETAMINOPHEN Inactive ZOLPIDEM TARTRATE 10 MG TABS take at bedtime ZOLPIDEM TARTRATE 10 MG TABS 428326 ZOLPIDEM TARTRATE Inactive LISINOPRIL 20 MG TABS 1 BID LISINOPRIL 20 MG TABS 327166 LISINOPRIL Inactive TRAVATAN Z 0.004 % SOLN 1 gtt each eye daily TRAVATAN Z 0.004 % SOLN TRAVOPROST Inactive LATUDA 60 MG ORAL TABS Take one by mouth daily LATUDA 60 MG ORAL TABS LURASIDONE HCL Inactive CEFDINIR 300 MG CAPS by mouth twice a day CEFDINIR 300 MG CAPS 949663 CEFDINIR Inactive AZITHROMYCIN 500 MG SOLR 1 po q day AZITHROMYCIN 500 MG SOLR 51911571435 AZITHROMYCIN Inactive AMOXICILLIN 500 MG CAPS 2 po BID x 10 days AMOXICILLIN 500 MG CAPS 425175 AMOXICILLIN Inactive PENICILLIN V POTASSIUM 500 MG TABS 1 pill by mouth three times daily PENICILLIN V POTASSIUM 500 MG TABS 470885 PENICILLIN V POTASSIUM Inactive KEFLEX 500 MG CAP 1 po BID x 7 days KEFLEX 500 MG CAP 832865 CEPHALEXIN Inactive Immunizations Vaccine Administration Date Value [...] Fluvirin, Fluarix, Agriflu(>=18 yo)) Fluzone (>3 yrs.) [[id number]] Influenza, seasonal, injectable pneumococcal immunization administered Pneumovax [...] Panel - Chemistry sodium, serum 137 mmol/L 997-862 5116/10/12 potassium, serum 4.8 mmol/L 3.5-5.2 chloride, serum 102 mmol/L 98-107 carbon dioxide, venous blood 27.6 mmol/L 21.0-32.0 blood glucose 168 mg/dL 65-110 calcium, serum 9.0 mg/dL 8.5-10.1 urea nitrogen, blood 15 mg/dL 7-18 creatinine, serum 1.04 mg/dL 0.55-1.30 sodium, serum 138 mmol/L 308-864 8249/11/11 potassium, serum 4.7 mmol/L 3.5-5.2 chloride, serum [...] % 11.6-14.8 platelet count 240 10^3/MM^3 10*3/mm3 660-888 1439/11/11 leukocyte count, blood 9.6 10^3/MM^3 10*3/mm3 4.6-10.2 [...] Acid - Chemistry cholesterol, serum 187 mg/dL 992-301 9599/06/14 triglyceride, serum, fasting 246 mg/dL 30-200 HDL [...] negative Encounters Code Encounter Date Provider Facility CPT-15156 Level 3 Est. Patient 17:40:16 CDT Mima Erazo [facility] CPT-42809 Level 3 Est. Patient 14:34:52 CDT Vanessa Hickey MD [facility] CPT-93616 Level 3 Est. Patient 16:27:51 CDT Mima Erazo [facility] CPT-35086 Level 3 Est. Patient 14:39:00 STEAM FLATTENER Vanessa Hickey MD [facility] CPT-85250 Level 2 Est. Patient 18:43:34 CDT Mima Erazo [facility] CPT-28592 Level 3 Est. Patient 16:22:09 CDT Cherelle Avila [facility]-96932 Level 4 Est. Patient 17:55:14 CDT Mima Erazo [facility] CPT-97838 Level 2 Est. Patient 17:13:21 CDT Alina Castaneda MD [facility]85252 Level 3 Est. Patient 14:46:15 CDT Vanessa Hickey MD [facility]-28630 Level 3 Est. Patient 09:34:56 CDT Alina Castaneda MD [facility]50170 Level 3 Est. Patient 21:40:19 CDT Mima Erazo [facility]-97440 Level 3 Est. Patient 09:26:40 CDT Marvel Charles [facility]15383 Level 3 Est. Patient 12:36:43 CDT Vanessa Hickey MD [facility]-52370 Level 3 Est. Patient 12:57:49 CDT Vanessa Hickey MD [facility]84593 Level 3 Est. Patient 00:28:25 CDT Alina Castaneda MD [facility]-51213 Level 2 Est. Patient 12:52:14 CDT Alina Castaenda MD [facility]09973 Level 3 Est. Patient 11:51:18 STEAM FLATTENER Alina Castaneda MD [facility]61426 Level 3 Est. Patient 10:09:22 STEAM FLATTENER Alina Castaneda MD [facility]66835 Level 3 Est. Patient 14:36:26 STEAM FLATTENER Marvel Charles [facility]-64000 Level 3 Est. Patient 13:34:47 STEAM FLATTENER Alina Castaneda MD [facility]-60527 Level 3 Est. Patient 19:52:08 STEAM FLATTENER Alina Castaneda MD [facility]-64801 Level 3 Est. Patient 10:01:51 STEAM FLATTENER Brookslashondanivia Araceli [facility]-28669 Level 3 Est. Patient 21:54:06 CDT Vanessa Hickey MD [facility]-15038 Level 3 Est. Patient 08:54:46 CDT Alina Castaneda MD [facility]20804 Level 3 Est. Patient 09:32:11 CDT Marvel Charles [facility]-77234 Level 3 Est. Patient 12:02:49 CDT Alina Castaneda MD [facility]-84726 Level 3 Est. Patient 19:17:33 CDT Alina Castaneda MD [facility]-67064 Level 3 Est. Patient 13:19:10 CDT Marvel Charles [facility]-01047 Level 3 Est. Patient 08:20:05 CDT Alina Castaneda MD [facility]-23637 Level 3 Est. Patient 15:17:18 CDT Alina Castaneda MD [facility]-90345 Level 3 Est. Patient 14:25:36 STEAM FLATTENER Brooksjohn [facility]-82962 Level 3 Est. Patient 10:09:15 STEAM FLATTENER Brooksjohn [facility]-20106 Level 3 Est. Patient 21:28:43 CDT Alina Castaneda MD [facility]-50736 Level 3 Est. Patient 15:20:11 CDT Maliheh Ziglari [facility]-24320 Level 4 Est. Patient 19:08:12 CDT Alina Castaneda MD [facility]-98773 Level 3 Est. Patient 15:06:39 CDT Brooksnivia [facility]-00852 Level 4 Est. Patient 17:48:15 CDT Alina Castaneda MD [facility]-78134 Level 3 Est. Patient 14:53:49 CDT Alina Castaneda MD [facility]-00236 Level 3 Est. Patient 09:35:16 CDT Alina Castaneda MD [facility]-62235 Level 3 Est. Patient 12:23:22 CDT Alina Castaneda MD [facility]-18287 Level 3 Est. Patient 16:19:15 CDT Alina Castaneda MD [facility]-20162 Level 3 Est. Patient 21:39:56 STEAM FLATTENER Alina Castaneda MD [facility]-29599 Level 4 Est. Patient 14:12:56 STEAM FLATTENER Alina Castaneda MD [facility]-33937 Level 2 Est. Patient 15:34:57 STEAM FLATTENER Alina Castaneda MD [facility]-09896 Level 3 Est. Patient 12:17:04 STEAM FLATTENER Alina Castaneda MD [facility]-79854 Level 3 Est. Patient 09:18:18 STEAM FLATTENER Marvel [facility]-29284 Level 2 Est. Patient 21:50:24 CDT Alina Castaneda MD [facility]96211 Level 3 Est. Patient 09:17:28 CDT Marvel [facility] CPT-78262 Level 4 Est. Patient 18:54:02 CDT Alina Castaneda MD [facility] CPT-89054 Level 3 Est. Patient 10:47:10 CDT Alina Castaneda MD [facility]-86959 Level 3 Est. Patient 09:22:20 CDT Brooksjohn [facility] CPT-10907 Level 3 Est. Patient 16:39:43 [facility] CPT-36169 Level 3 Est. Patient 16:05:16 CDT Alina Castaneda MD [facility] CPT-04684 Level 3 Est. Patient 00:29:15 CDT Alina Castaneda MD [facility] CPT-37877 Level 3 Est. Patient 10:49:22 STEAM FLATTENER Marvel [facility] CPT-38763 Level 3 Est. Patient 21:30:19 STEAM FLATTENER Alina Castaneda MD [facility] CPT-59194 Level 4 Est. Patient 17:04:11 STEAM FLATTENER Brooksjohn [facility] CPT-54330 Level 3 Est. Patient 15:34:11 STEAM FLATTENER Marvel [facility] CPT-13569 Level 2 Est. Patient 12:51:58 STEAM FLATTENER Alina Castaneda MD PhD [facility] CPT-97470 Level 3 Est. Patient 13:20:01 STEAM FLATTENER Alina Castaneda MD [facility]-73081 Level 3 Est. Patient 09:23:35 CDT Alina Castaneda MD PhD [facility] Procedures Code Procedure Name Date Entry Date Standard Description CPT-TCMM Transitional Care Mgmt-Moderate 10:25:31 CDT CPT-32156 Bladder Scan 14:34:53 CDT CPT-18349 Bladder Scan 14:39:01 STEAM FLATTENER CPT-TCMM Transitional Care Mgmt-Moderate 10:30:19 STEAM FLATTENER CPT-03367 Bladder Scan 12:36:44 CDT CPT-18096 Bladder Scan 21:54:06 CDT CPT-G0008 Administration of Influenza Virus Vaccine 13:05:26 CDT CPT-45352 Fluzone Quadrivalent Intramuscular Suspension 0.5 ML 13: 05:26 CDT CPT-01584 Administration single or combination vaccine inc oral 11 :49:51 CDT CPT-78964 Pneumovax 11:49:51 CDT CPT-39540 Ribs unilateral 2V 12:37:22 STEAM FLATTENER CPT-48268 Chest 2V Frontal and Lat 17:15:26 CDT CPT-50641 Abx/Therapy Injection 18:54:02 CDT CPT-J0696 Rocephin 1000 mg (Ceftriaxone) 16:00:32 CDT CPT-65608 Chest 2V Frontal and Lat 15:26:45 CDT CPT-59161 Chest 2V Frontal and Lat 10:23:27 CDT CPT-09772 Venipuncture Draw Fee 10:11:00 CDT CPT-48926 Administration single or combination vaccine inc oral 11 :56:38 CDT CPT-91272 Influenza split virus > age 3 11:56:38 CDT CPT-97232 Venipuncture Draw Fee 08:49:54 STEAM FLATTENER CPT-22785 EKG Trac and Interp 17:54:19 STEAM FLATTENER
--- OUTSIDE RECORDS SUMMARY | 2018-07-02 16:13 | XMS REPORT | Clinical Summary ---
Author Author Admin, TERELL Organization [facility] Address Unknown Phone Unavailable Allergies, [...] complication Chest pain, atypical 786.59 Resolved Alina Casatneda MD PhD Other chest pain Chest pain, atypical 786.59 Resolved Alina Castaneda MD PhD Other chest pain Urinary Retention 788.20 Active Vanessa Hickey MD Retention of urine, unspecified Benign paroxysmal positional vertigo 386.11 Active Mima Erazo STORE ADMINISTRATOR Benign paroxysmal positional vertigo Vertigo, benign paroxysmal position 386.11 Inactive Mima Erazo STORE ADMINISTRATOR Benign paroxysmal positional vertigo High-risk sexual behavior V69.2 Active Alina Castaneda MD PhD High-risk sexual behavior Erectile dysfunction 302.72 Active Alina Castaneda MD PhD Psychosexual dysfunction with inhibited sexual excitement Constipation 564.00 Active Alina Castaneda MD PhD Constipation, unspecified Skin lesion 709.9 Active Alina Castaneda MD PhD Unspecified disorder of skin and subcutaneous tissue Malaise and fatigue 780.79 Active Cherelle Speaks STORE ADMINISTRATOR Other malaise and fatigue Diarrhea 787.91 Active Cherelle Speaks STORE ADMINISTRATOR Diarrhea PHARYNGITIS 462 Active Cherelle Speaks STORE ADMINISTRATOR Acute pharyngitis Colitis 558.9 Active Mima Erazo STORE ADMINISTRATOR Other and unspecified noninfectious gastroenteritis and colitis WOUND, OPEN, NOSE ICD-873.20 Inactive Alina Castaneda MD PhD DIABETES, TYPE 2 ICD-250.00 Inactive Alina Castaneda MD PhD HYPERTENSION ICD-401.9 Inactive Alina Castaneda MD PhD URI ICD-465.9 Inactive Alina Castaneda MD PhD CHEST PAIN ICD-786.50 Inactive Alina Castaneda MD PhD FH STROKE ICD-V17.1 Inactive Marvel Charles DUST OPERATOR FATIGUE ICD-780.79 Inactive Alina Castaneda MD [...] SQ each evening, for diabetes INSULIN DETEMIR 55849138180 Active Salina ROJAS Active TRUEPLUS LANCETS 30G MISC 3 a day LANCETS 27192002142 Active Marvel MENDOZAP Active TOLTERODINE TARTRATE 2 MG TABS 1 pill twice daily, for bladder TOLTERODINE TARTRATE 75512324060 No Longer Active Vanessa Hickey MD Active AMITIZA 24 MCG ORAL CAPS Take one capsule BID for constipation. LUBIPROSTONE 96005623090 No Longer Active Vanessa Hickey MD Active LOMOTIL 2.5-0.025 MG ORAL TABS take 1-2 tabs PO after each stool, no more than 8 in 24 hours DIPHENOXYLATE-ATROPINE 75923235981 Active Grace ROJAS Active FLUVOXAMINE MALEATE 100 MG ORAL TABS take one tab every AM et HS, and take 1/ 2 tab at noon FLUVOXAMINE MALEATE 20949356645 Active Grace ROJAS Active METOPROLOL SUCCINATE 100 MG [id number] 1 by mouth daily for blood pressure METOPROLOL SUCCINATE 21866595665 No Longer Active Grace Nelsonb RMA Active METFORMIN HCL ER 500 MG RS69S-IUE Take three tablets by mouth everyday METFORMIN HCL 90576618782 No Longer Active Grace Azam RMA Active LOVAZA 1 GM CAPS 4 daily (for triglycerides) OMEGA-3- ACID ETHYL ESTERS 75603012463 No Longer Active Grace Azam RMA Active TRAZODONE HCL 100 MG ORAL TABS 1 tab by mouth for sleep TRAZODONE HCL 42261208793 No Longer Active Grace Azam RMA Active NOVOFINE 32G X 6 MM MISC use one four times per day INSULIN PEN NEEDLE 70130091117 No Longer Active Grace Azam RMA Active BACTROBAN 2 % CREAM Apply to affected area BID for up to 10 days MUPIROCIN CALCIUM 13013485139 No Longer Active Grace Azam RMA Active ZOFRAN 4 MG TABS 1 po q4hr PRN Nausea ONDANSETRON HCL 77493617812 Active Salina Han RMA Active KEFLEX 500 MG CAP 1 po BID x 7 days CEPHALEXIN 77939107694 No Longer Active Cherelle Speaks STORE ADMINISTRATOR Active FLUVOXAMINE MALEATE 100 MG TABS Take one (1) tablet by mouth am, 1/2 at noon FLUVOXAMINE MALEATE 27369972652 No Longer Active Mima Erazo STORE ADMINISTRATOR Active CORICIDIN HBP CONGESTION/COUGH 10-200 MG ORAL CAPS Take as directed on box as needed for cold/flu symptoms DEXTROMETHORPHAN-GUAIFENESIN 94740948587 Active Cherelle Speaks STORE ADMINISTRATOR Active OMEGA-3 300 MG ORAL CAPS 4 caps by mouth daily OMEGA-3 FATTY ACIDS 81718460422 Active Cherelle Speaks STORE ADMINISTRATOR Active FLUVOXAMINE MALEATE 100 MG ORAL TABS Take 1/2 tab at noon FLUVOXAMINE MALEATE 81438098783 No Longer Active Cherelle Avila STORE ADMINISTRATOR Active [facility] LUBRICANT EYE DROPS 0.4-0.3 % OPHTH SOLN POLYETHYL GLYCOL-PROPYL GLYCOL 19917349741 Active Mima Erazo STORE ADMINISTRATOR Active CLONAZEPAM 1 MG TABS 1/2 pill by mouth three times daily CLONAZEPAM 92341058567 Active Alina Castaneda MD PhD Active MIRALAX POWD 17g by mouth daily, for constipation POLYETHYLENE GLYCOL 3350 51583298805 Active Alina Castaneda MD PhD Active HYDROCODONE-ACETAMINOPHEN 5-325 MG TABS 2 tabs by mouth three times daily for pain HYDROCODONE-ACETAMINOPHEN 52799933607 Active Mima Erazo STORE ADMINISTRATOR Active HUMALOG KWIKPEN 100 UNIT/ML SC SOPN 20 units with breakfast, 10 units with lunch, 10 units with dinner, for diabetes INSULIN LISPRO (HUMAN ) 73493772960 Active Alina Castaneda MD PhD Active LATUDA 120 MG ORAL TABS 1 pill by mouth nightly LURASIDONE HCL 69799312051 Active Alina Castaneda MD PhD Active COLACE 100 MG CAPS 1 pill by mouth twice daily, for constipation DOCUSATE SODIUM 31273380395 Active Alina Castaneda MD PhD Active TRUETEST TEST STRP check blood sugars 3x/day GLUCOSE BLOOD 82063518928 Active Marvel Thurstonari DUST OPERATOR Active ACCU-CHEK ROSA UZMA Use device to check blood sugars BLOOD GLUCOSE MONITORING SUPPL 44125914278 No Longer Active Marvel Mackenzieglari LOPEZ Active ACCU-CHEK ROSA INVITR STRP use strips with device to check blood sugars 3 times daily GLUCOSE BLOOD 35147724916 No Longer Active Marvel MENDOZAP Active VERAPAMIL HCL ER 180 MG ORAL CR-TABS 1 pill by mouth twice daily, for migraine prevention VERAPAMIL HCL 24683387068 Active Alina Castaneda MD PhD Active CYCLOBENZAPRINE HCL 10 MG TABS 1 tablet by mouth three times daily, scheduled CYCLOBENZAPRINE HCL 54221327905 No Longer Active Alina Castaneda MD PhD Active HUMALOG 100 UNIT/ML SOLN Take 20 units with breakfast, 10u with lunch and suppetr. INSULIN LISPRO (HUMAN) 85376415820 No Longer Active Alina Castaneda MD PhD Active TRUETEST TEST STRP check sugars 4x/day GLUCOSE BLOOD 48714852599 No Longer Active Alina Castaneda MD PhD Active MORPHINE SULFATE 30 MG TABS 1 pill by mouth twice daily, for pain MORPHINE SULFATE 12617431472 Active Mima Erazo STORE ADMINISTRATOR Active ACYCLOVIR 400 MG ORAL TABS 1 pill three times daily x 5 days, for cold sore outbreak ACYCLOVIR 78820506200 No Longer Active Alina Castaneda MD PhD Active PENICILLIN V POTASSIUM 500 MG TABS 1 pill by mouth three times daily PENICILLIN V POTASSIUM 51796948117 No Longer Active Alina Castaneda MD PhD Active UROXATRAL 10 MG [id number]-JCV Take 1 tablet by mouth daily ALFUZOSIN HCL 78519810249 No Longer Active Alina Castaneda MD PhD Active THIOTHIXENE 5 MG CAPS by mouth twice a day THIOTHIXENE 22947747211 No Longer Active Alina Castaneda MD PhD Active ZYPREXA 7.5 MG TABS 1 at HS OLANZAPINE 35663651459 No Longer Active Alina Castaneda MD PhD Active BD INSULIN SYRINGE 28G X 1/2" 1 ML MISC 1 four times per day INSULIN SYRINGE-NEEDLE U-100 75821100319 Active [facility] Gurdeepglestela [facility] Active DETROL LA 4 MG [id number]-ZIW Take 1 tablet by mouth daily TOLTERODINE TARTRATE 79523513080 No Longer Active Alina Castaneda MD PhD Active TERESE CONTOUR TEST STRP monitor blood sugars 3x/day GLUCOSE BLOOD 46474444826 No Longer Active Alina Castaneda MD PhD Active EQL TRUETEST TEST STRP Test blood sugar TID GLUCOSE BLOOD 76389921137 No Longer Active Alina Castaneda MD PhD Active FLUTICASONE PROPIONATE 50 MCG/ACT SUSP 2 sprays each nostril qDay x 30 days FLUTICASONE PROPIONATE 72497114231 No Longer Active Alina Castaneda MD PhD Active IBUPROFEN 200 MG TABS 1 Q 6 hr. PRN IBUPROFEN 24295939679 No Longer Active Alina Castaneda MD PhD Active NIACIN ER 500 MG CR-TABS 4 qHS (for triglycerides) NIACIN 81304413176 No Longer Active Alina Castaneda MD PhD Active ALFUZOSIN HCL ER 10 MG EW43P-LOB 1 tablet daily ALFUZOSIN HCL 24588412304 Active Vanessa Hickey MD Active SAPHRIS 5 MG SUBL by mouth twice a day ASENAPINE MALEATE 69941683626 No Longer Active Maliheh Ziglari DUST OPERATOR Active ACETAMINOPHEN 500 MG TABS 2 Q 6 hr. PRN ACETAMINOPHEN 50829946240 No Longer Active Maliheh Ziglari DUST OPERATOR Active ORPHENADRINE CITRATE ER 100 MG LV63O-QVD 1 every 12 hr. as needed ORPHENADRINE CITRATE 23047466151 No Longer Active Alina Castaneda MD PhD Active NIACIN CR 500 MG CR-TABS 2 qHS NIACIN 76509191621 No Longer Active Alina Castaneda MD PhD Active AMOXICILLIN 500 MG CAPS 2 po BID x 10 days AMOXICILLIN 59003653418 No Longer Active Alina Castaneda MD PhD Active HYDROCODONE-ACETAMINOPHEN 7.5-325 MG TABS 1 four times a day as needed for pain HYDROCODONE-ACETAMINOPHEN 64176510594 No Longer Active Alina Castaneda MD PhD Active DOXEPIN HCL 10 MG CAPS Take 1 tablet by mouth daily DOXEPIN HCL 26618534230 No Longer Active Salina ROJAS Active NAVANE 10 MG CAPS 1/2 tablet twice a day THIOTHIXENE No Longer Active Salina ROBBINSA Active CYCLOBENZAPRINE HCL 10 MG TABS 1/2 tablet by mouth every 8 hours as needed for muscle spasms CYCLOBENZAPRINE HCL 60677258773 No Longer Active Alina Castaneda MD PhD Active BACTROBAN 2 % CREAM apply to ear and nose twice daily MUPIROCIN CALCIUM 74705940815 No Longer Active Alina Castaneda MD PhD Active HYDROCODONE-ACETAMINOPHEN 5-325 MG TABS take one tablet by mouth every four hours as needed for pain HYDROCODONE-ACETAMINOPHEN 75888296820 No Longer Active Alina Castaneda MD PhD Active ZOLPIDEM TARTRATE 10 MG TABS take at bedtime ZOLPIDEM TARTRATE 23697977390 Active Alina Castaneda MD PhD Active ZYPREXA 5 MG TABS take one tablet by mouth every evening OLANZAPINE 92327230613 No Longer Active Alina Castaneda MD PhD Active ALBUTEROL SULFATE 0.083 % NEBU SOLN one vial per nebulizer TID and PRN cough/ soa ALBUTEROL SULFATE 03723079717 No Longer Active Alina Castaneda MD PhD Active GUAIFENESIN 600 MG [id number]-FYW 1 tablet by mouth twice daily if needed for cough GUAIFENESIN 99319506146 No Longer Active Marvel MARROQUIN Active AZITHROMYCIN 500 MG SOLR 1 po q day AZITHROMYCIN 15885890666 No Longer Active Alina Castaneda MD PhD Active PROMETHAZINE-CODEINE 6.25-10 MG/5ML SYRP 1 tsp po q 6 hours prn cough PROMETHAZINE-CODEINE 30145961321 No Longer Active Alina Castaneda MD PhD Active CEFDINIR 300 MG CAPS by mouth twice a day CEFDINIR 95729599298 No Longer Active Alina Castaneda MD PhD Active METFORMIN HCL 500 MG FD36A-UQS Take 3 tablets by mouth everyday METFORMIN HCL 36631117976 No Longer Active Alina Castaneda MD PhD Active LEVEMIR 100 UNIT/ML SOLN 90 units SQ qHS INSULIN DETEMIR 47139616495 No Longer Active Marvel MARROQUIN Active TOPROL XL 100 MG JR49W-QOR 1 @ HS METOPROLOL SUCCINATE 28512068025 No Longer Active Marvel MARROQUIN Active ALLOPURINOL 300 MG TABS Take one by mouth daily ALLOPURINOL 83850500512 Active Alina Castaneda MD PhD Active ZYPREXA 10 MG TABS Take one by mouth daily OLANZAPINE 17074467520 No Longer Active Alina Castaneda MD PhD Active NOVOLOG 100 UNIT/ML SOLN 40 units with every meal INSULIN ASPART 24546717823 No Longer Active Alina Castaneda MD PhD Active VERAPAMIL HCL CR 120 MG TAB CR 1 qPM VERAPAMIL HCL 08279129989 No Longer Active Salina ROJAS Active ZYPREXA 15 MG TABS Take 1 tablet by mouth daily OLANZAPINE 89463015155 No Longer Active Marvel MARROQUIN Active LISINOPRIL 20 MG TABS 1 BID LISINOPRIL 56774417066 Active Alina Castaneda MD PhD Active ALBUTEROL SULFATE (2.5 MG/3ML) 0.083% NEBU 1 neb tid and prn cough ALBUTEROL SULFATE 47670990798 No Longer Active Alina Castaneda MD PhD Active TRAVATAN Z 0.004 % SOLN 1 gtt each eye daily TRAVOPROST 18109180931 Active CRYSTAL Suarez Active LANTUS 100 UNIT/ML SOLN 60 units sq q hs INSULIN GLARGINE 47351079677 No Longer Active CRYSTAL Suarez Active ALBUTEROL SULFATE (2.5 MG/3ML) 0.083% NEBU 1 neb tid and prn cough ALBUTEROL SULFATE (2.5 MG/3ML) 0.083% NEBU 242234 ALBUTEROL SULFATE Inactive ZYPREXA 15 MG TABS Take 1 tablet by mouth daily ZYPREXA 15 MG TABS 082994 OLANZAPINE Inactive VERAPAMIL HCL CR 120 MG TAB CR 1 qPM VERAPAMIL HCL CR 120 MG TAB CR VERAPAMIL HCL Inactive ZYPREXA 10 MG TABS Take one by mouth daily ZYPREXA 10 MG TABS 362089 OLANZAPINE Inactive TOPROL XL 100 MG [id number]-ZAR 1 @ HS TOPROL XL 100 MG DI20F-SQY METOPROLOL SUCCINATE Inactive LEVEMIR 100 UNIT/ML SOLN 90 units SQ qHS LEVEMIR 100 UNIT/ML SOLN INSULIN DETEMIR Inactive PROMETHAZINE-CODEINE 6.25-10 MG/5ML SYRP 1 tsp po q 6 hours prn cough PROMETHAZINE-CODEINE 6.25-10 MG/5ML SYRP 627318 PROMETHAZINE- CODEINE Inactive GUAIFENESIN 600 MG PV90B-ZRO 1 tablet by mouth twice daily if needed for cough GUAIFENESIN 600 MG MR39I-SDR GUAIFENESIN Inactive ALBUTEROL SULFATE 0.083 % NEBU SOLN one vial per nebulizer TID and PRN cough/ soa ALBUTEROL SULFATE 0.083 % NEBU SOLN 977769 ALBUTEROL SULFATE Inactive ZYPREXA 5 MG TABS take one tablet by mouth every evening ZYPREXA 5 MG TABS 115812 OLANZAPINE Inactive HYDROCODONE-ACETAMINOPHEN 5-325 MG TABS take one tablet by mouth every four hours as needed for pain HYDROCODONE-ACETAMINOPHEN 5-325 MG TABS 877039 HYDROCODONE-ACETAMINOPHEN Inactive BACTROBAN 2 % CREAM apply to ear and nose twice daily BACTROBAN 2 % CREAM 085543 MUPIROCIN CALCIUM Inactive CYCLOBENZAPRINE HCL 10 MG TABS 1/2 tablet by mouth every 8 hours as needed for muscle spasms CYCLOBENZAPRINE HCL 10 MG TABS 741835 CYCLOBENZAPRINE HCL Inactive NAVANE 10 MG CAPS 1/2 tablet twice a day NAVANE 10 MG CAPS THIOTHIXENE Inactive DOXEPIN HCL 10 MG CAPS Take 1 tablet by mouth daily DOXEPIN HCL 10 MG CAPS 4281676 DOXEPIN HCL Inactive HYDROCODONE-ACETAMINOPHEN 7.5-325 MG TABS 1 four times a day as needed for pain HYDROCODONE-ACETAMINOPHEN 7.5-325 MG TABS 674836 HYDROCODONE-ACETAMINOPHEN Inactive NIACIN CR 500 MG CR-TABS 2 qHS NIACIN CR 500 MG CR- TABS NIACIN Inactive ORPHENADRINE CITRATE ER 100 MG [id number]-FJW 1 every 12 hr. as needed ORPHENADRINE CITRATE ER 100 MG VB12I-RSH ORPHENADRINE CITRATE Inactive ACETAMINOPHEN 500 MG TABS 2 Q 6 hr. PRN ACETAMINOPHEN 500 MG TABS 026082 ACETAMINOPHEN Inactive SAPHRIS 5 MG SUBL by mouth twice a day SAPHRIS 5 MG SUBL ASENAPINE MALEATE Inactive NIACIN ER 500 MG CR-TABS 4 qHS (for triglycerides) NIACIN ER 500 MG CR-TABS NIACIN Inactive IBUPROFEN 200 MG TABS 1 Q 6 hr. PRN IBUPROFEN 200 MG TABS 734847 IBUPROFEN Inactive FLUTICASONE PROPIONATE 50 MCG/ACT SUSP 2 sprays each nostril qDay x 30 days FLUTICASONE PROPIONATE 50 MCG/ACT SUSP 104348 FLUTICASONE PROPIONATE Inactive EQL TRUETEST TEST STRP Test blood sugar TID EQL TRUETEST TEST STRP GLUCOSE BLOOD Inactive TERESE CONTOUR TEST STRP monitor blood sugars 3x/day TERESE CONTOUR TEST STRP GLUCOSE BLOOD Inactive DETROL LA 4 MG VF60J-GUX Take 1 tablet by mouth daily DETROL LA 4 MG SN79M-URH TOLTERODINE TARTRATE Inactive ZYPREXA 7.5 MG TABS 1 at HS ZYPREXA 7.5 MG TABS 331237 OLANZAPINE Inactive THIOTHIXENE 5 MG CAPS by mouth twice a day THIOTHIXENE 5 MG CAPS 722985 THIOTHIXENE Inactive UROXATRAL 10 MG HW98Y-MDK Take 1 tablet by mouth daily UROXATRAL 10 MG GZ77I-VXF ALFUZOSIN HCL Inactive ACYCLOVIR 400 MG ORAL TABS 1 pill three times daily x 5 days, for cold sore outbreak ACYCLOVIR 400 MG ORAL TABS 201829 ACYCLOVIR Inactive TRUETEST TEST STRP check sugars 4x/day TRUETEST TEST STRP GLUCOSE BLOOD Inactive HUMALOG 100 UNIT/ML SOLN Take 20 units with breakfast, 10u with lunch and suppetr. HUMALOG 100 UNIT/ML SOLN INSULIN LISPRO ( HUMAN) Inactive CYCLOBENZAPRINE HCL 10 MG TABS 1 tablet by mouth three times daily, scheduled CYCLOBENZAPRINE HCL 10 MG TABS 280067 CYCLOBENZAPRINE HCL Inactive ACCU-CHEK ROSA INVITR STRP use strips with device to check blood sugars 3 times daily ACCU-CHEK ROSA INVITR STRP GLUCOSE BLOOD Inactive ACCU-CHEK ROSA UZMA Use device to check blood sugars ACCU-CHEK ROSA UZMA BLOOD GLUCOSE MONITORING SUPPL Inactive FLUVOXAMINE MALEATE 100 MG ORAL TABS Take 1/2 tab at noon FLUVOXAMINE MALEATE 100 MG ORAL TABS 092922 FLUVOXAMINE MALEATE Inactive FLUVOXAMINE MALEATE 100 MG TABS Take one (1) tablet by mouth am, 1/2 at noon FLUVOXAMINE MALEATE 100 MG TABS 984418 FLUVOXAMINE MALEATE Inactive BACTROBAN 2 % CREAM Apply to affected area BID for up to 10 days BACTROBAN 2 % CREAM 335497 MUPIROCIN CALCIUM Inactive NOVOFINE 32G X 6 MM MISC use one four times per day NOVOFINE 32G X 6 MM MISC INSULIN PEN NEEDLE Inactive TRAZODONE HCL 100 MG ORAL TABS 1 tab by mouth for sleep TRAZODONE HCL 100 MG ORAL TABS 748734 TRAZODONE HCL Inactive LOVAZA 1 GM CAPS 4 daily (for triglycerides) LOVAZA 1 GM CAPS 565532 SKTCO-6-ZOJK ETHYL ESTERS Inactive METFORMIN HCL ER 500 MG VF03T-ADJ Take three tablets by mouth everyday METFORMIN HCL ER 500 MG NX48Z-SHM METFORMIN HCL Inactive METOPROLOL SUCCINATE 100 MG GB21F-STQ 1 by mouth daily for blood pressure METOPROLOL SUCCINATE 100 MG VW67O-QEO METOPROLOL SUCCINATE Inactive AMITIZA 24 MCG ORAL CAPS Take one capsule BID for constipation. AMITIZA 24 MCG ORAL CAPS LUBIPROSTONE Inactive TOLTERODINE TARTRATE 2 MG TABS 1 pill twice daily, for bladder TOLTERODINE TARTRATE 2 MG TABS 693196 TOLTERODINE TARTRATE Inactive CEFDINIR 300 MG CAPS by mouth twice a day CEFDINIR 300 MG CAPS 540415 CEFDINIR Inactive AZITHROMYCIN 500 MG SOLR 1 po q day AZITHROMYCIN 500 MG SOLR 38226004011 AZITHROMYCIN Inactive AMOXICILLIN 500 MG CAPS 2 po BID x 10 days AMOXICILLIN 500 MG CAPS 673901 AMOXICILLIN Inactive PENICILLIN V POTASSIUM 500 MG TABS 1 pill by mouth three times daily PENICILLIN V POTASSIUM 500 MG TABS 974628 PENICILLIN V POTASSIUM Inactive KEFLEX 500 MG CAP 1 po BID x 7 days KEFLEX 500 MG CAP 123720 CEPHALEXIN Inactive Immunizations Vaccine Administration Date Value [...] Fluvirin, Fluarix, Agriflu(>=18 yo)) Fluzone (>3 yrs.) [[id number]] Influenza, seasonal, injectable pneumococcal immunization administered Pneumovax [...] MICROALBUMIN - Chemistry sodium, serum 137 mmol/L 447-346 7740/05/19 potassium, serum 5.2 mmol/L 3.5-5.2 chloride, serum [...] Panel - Chemistry sodium, serum 137 mmol/L 425-923 3682/10/12 potassium, serum 4.8 mmol/L 3.5-5.2 chloride, serum 102 mmol/L 98-107 carbon dioxide, venous blood 27.6 mmol/L 21.0-32.0 blood glucose 168 mg/dL 65-110 calcium, serum 9.0 mg/dL 8.5-10.1 urea nitrogen, blood 15 mg/dL 7-18 creatinine, serum 1.04 mg/dL 0.55-1.30 sodium, serum 138 mmol/L 241-575 4180/11/11 potassium, serum 4.7 mmol/L 3.5-5.2 chloride, serum [...] % 11.6-14.8 platelet count 252 10^3/MM^3 10*3/mm3 258-247 6506/10/12 leukocyte count, blood 5.8 10^3/MM^3 10*3/mm3 4.6-10.2 [...] 240 10^3/MM^3 10*3/mm3 142-424 Lab Report: Chlamydia/GC APTIMA/76249, HIV-1/2 Agn/Dominga/58575, RPR (DX) W ... - Chemistry hepatitis B surface antigen NON-REACTIVE NON-REACTIVE Lab Report: Chlamydia/GC APTIMA/98471, HIV-1/2 Agn/Dominga/04739, RPR (DX) W ... - Lab chlamydia DNA probe NOT DETECTED NOT DETECTED Lab Report: Chlamydia/GC APTIMA/49066, HIV-1/2 Agn/Dominga/45099, RPR (DX) W ... - Microbiology Neisseria gonorrhoeae DNA probe NOT DETECTED NOT DETECTED Lab Report: Chlamydia/GC APTIMA/10881, HIV-1/2 Agn/Dominga/96330, RPR (DX) W ... - Serology rapid plasma reagin antibody titer NON-REACTIVE NON-REACTIVE Lab Report: HGBA1C - Chemistry hemoglobin A1C, blood, as % of total hemoglobin 6.1 % 4.3-6.0 hemoglobin A1C, blood, as % of total hemoglobin 6.3 % 4.3-6.0 Lab Report: Lipid Panel, HEPATIC PANEL, MICROALBUMIN, CBC - Chemistry cholesterol, serum 131 mg/dL 540-603 9867/06/03 triglyceride, serum, fasting 383 mg/dL 30-200 HDL [...] 4.7 mg/dL 2.6-7.2 cholesterol, serum 142 mg/dL 992-623 0891/06/26 triglyceride, serum, fasting 272 mg/dL 30-200 HDL [...] negative Encounters Code Encounter Date Provider Facility CPT-36132 Level 3 Est. Patient 14:39:00 DIAMOND BLENDER Vanessa iHckey MD [facility] CPT-09902 Level 2 Est. Patient 18:43:34 CDT Mima Erazo [facility] CPT-94387 Level 3 Est. Patient 16:22:09 CDT Cherelle Avila [facility] CPT-10849 Level 4 Est. Patient 17:55:14 CDT Mima Erazo [facility] CPT-13528 Level 2 Est. Patient 17:13:21 CDT Alina Castaneda MD PhD [facility] CPT-09060 Level 3 Est. Patient 14:46:15 CDT Vanessa Hickey MD [facility] CPT-80001 Level 3 Est. Patient 09:34:56 CDT Alina Castaneda MD [facility]-26963 Level 3 Est. Patient 21:40:19 CDT Mima Erazo [place] [facility]-14184 Level 3 Est. Patient 09:26:40 CDT Marvel Charles [facility]-89648 Level 3 Est. Patient 12:36:43 CDT Vanessa Hickey MD [facility]-11647 Level 3 Est. Patient 12:57:49 CDT Vanessa Hickey MD [facility]-07072 Level 3 Est. Patient 00:28:25 CDT Alina Castaneda MD [facility]35301 Level 2 Est. Patient 12:52:14 CDT Alina Castaneda MD [facility]-29096 Level 3 Est. Patient 11:51:18 DIAMOND BLENDER Alnia Castaneda MD [facility] CPT-30976 Level 3 Est. Patient 10:09:22 DIAMOND BLENDER Alina Castnaeda MD [facility]-40651 Level 3 Est. Patient 14:36:26 DIAMOND BLENDER Marvel Charles [facility] CPT-12056 Level 3 Est. Patient 13:34:47 DIAMOND BLENDER Alina Castaneda MD [facility]-92721 Level 3 Est. Patient 19:52:08 DIAMOND BLENDER Alina Castaneda MD [facility] CPT-25529 Level 3 Est. Patient 10:01:51 DIAMOND BLENDER Marvel Charles [facility]-12344 Level 3 Est. Patient 21:54:06 CDT Vanessa Hickey MD [facility]-21495 Level 3 Est. Patient 08:54:46 CDT Alina Castaneda MD [facility]-31633 Level 3 Est. Patient 09:32:11 CDT Marvel Charles [facility]-08806 Level 3 Est. Patient 12:02:49 CDT Alina Castaneda MD [facility]-36782 Level 3 Est. Patient 19:17:33 CDT Alina Castaneda MD [facility]-69435 Level 3 Est. Patient 13:19:10 CDT Marvel Gurdeepajayestela [facility]-86836 Level 3 Est. Patient 08:20:05 CDT Alina Castaneda MD [facility]-45764 Level 3 Est. Patient 15:17:18 CDT Alina Castaneda MD [facility]-31892 Level 3 Est. Patient 14:25:36 DIAMOND BLENDER Marvel Charles [facility]-46813 Level 3 Est. Patient 10:09:15 DIAMOND BLENDER [facility] Patient 21:28:43 CDT Alina Castaneda MD [facility]-21215 Level 3 Est. Patient 15:20:11 CDT Marvel Araceli [facility]-59893 Level 4 Est. Patient 19:08:12 CDT Alina Castaneda MD [facility]-45119 Level 3 Est. Patient 15:06:39 CDT Brookslashondanivia Araceli [facility]-39320 Level 4 Est. Patient 17:48:15 CDT Alina Castaneda MD [facility]-05209 Level 3 Est. Patient 14:53:49 CDT Alina Castaneda MD [facility]-71654 Level 3 Est. Patient 09:35:16 CDT Alina Castaneda MD [facility]-69544 Level 3 Est. Patient 12:23:22 CDT Alina Castaneda MD [facility]30102 Level 3 Est. Patient 16:19:15 CDT Alina Castaneda MD [facility]-39622 Level 3 Est. Patient 21:39:56 DIAMOND BLENDER Alina Castaneda MD [facility]-70725 Level 4 Est. Patient 14:12:56 DIAMOND BLENDER Alina Castaneda MD [facility]10441 Level 2 Est. Patient 15:34:57 DIAMOND BLENDER Alina Castaneda MD [facility]-68378 Level 3 Est. Patient 12:17:04 DIAMOND BLENDER Alina Castaneda MD [facility]-61416 Level 3 Est. Patient 09:18:18 DIAMOND BLENDER Marvel Charles [facility]-88564 Level 2 Est. Patient 21:50:24 CDT Alina Castaneda MD [facility]-73363 Level 3 Est. Patient 09:17:28 CDT Marvel Charles [facility]-01368 Level 4 Est. Patient 18:54:02 CDT Alina Castaneda MD [facility]-49778 Level 3 Est. Patient 10:47:10 CDT Alina Castaneda MD [facility]65351 Level 3 Est. Patient 09:22:20 CDT Marvel Charles [facility]-81821 Level 3 Est. Patient 16:39:43 CDT Marvel Charles [facility] CPT-17052 Level 3 Est. Patient 16:05:16 CDT Alina Castaneda MD [facility] CPT-78842 Level 3 Est. Patient 00:29:15 CDT Alina Castaneda MD [facility] CPT-48469 Level 3 Est. Patient 10:49:22 [employer] Marvel [facility] CPT-30398 Level 3 Est. Patient 21:30:19 [employer] Alina Castaneda MD [facility] CPT-18435 Level 4 Est. Patient 17:04:11 [employer] Marvel [facility] CPT-11177 Level 3 Est. Patient 15:34:11 [facility] Level 2 Est. Patient 12:51:58 [employer] Alina Castaneda MD [facility] CPT-25581 Level 3 Est. Patient 13:20:01 [employer] Alina Castaneda MD [facility] CPT-98875 Level 3 Est. Patient 09:23:35 CDT Alina Castaneda MD [facility] Procedures Code Procedure Name Date Entry Date Standard Description CPT-42757 Bladder Scan 14:39:01 [employer] CPT-TCMM Transitional Care Mgmt-Moderate 10:30:19 [employer] CPT-54776 Bladder Scan 12:36:44 CDT CPT-75915 Bladder Scan 21:54:06 CDT CPT-G0008 Administration of Influenza Virus Vaccine 13:05:26 CDT CPT-75569 Fluzone Quadrivalent Intramuscular Suspension 0.5 ML 13: 05:26 CDT CPT-03029 Administration single or combination vaccine inc oral 11 :49:51 CDT CPT-81861 Pneumovax 11:49:51 CDT CPT-55727 Ribs unilateral 2V 12:37:22 [employer] CPT-40547 Chest 2V Frontal and Lat 17:15:26 CDT CPT-19292 Abx/Therapy Injection 18:54:02 CDT CPT-J0696 Rocephin 1000 mg (Ceftriaxone) 16:00:32 CDT CPT-52622 Chest 2V Frontal and Lat 15:26:45 CDT CPT-50775 Chest 2V Frontal and Lat 10:23:27 CDT CPT-45923 Venipuncture Draw Fee 10:11:00 CDT CPT-40894 Administration single or combination vaccine inc oral 11 :56:38 CDT CPT-67777 Influenza split virus > age 3 11:56:38 CDT CPT-49314 Venipuncture Draw Fee 08:49:54 [employer] CPT-18559 EKG Trac and Interp 17:54:19 [employer]
--- OUTSIDE RECORDS SUMMARY | 2018-07-02 16:16 | XMS REPORT | Clinical Summary ---
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 Erazo COMPUTER SYSTEMS MANAGER Benign paroxysmal positional vertigo Vertigo, benign paroxysmal position 386.11 Inactive Mima Erazo COMPUTER SYSTEMS MANAGER Benign paroxysmal positional vertigo High-risk sexual behavior V69.2 Active Alina Castaneda MD PhD High-risk sexual behavior Erectile dysfunction 302.72 Active Alina Castaneda MD PhD Psychosexual dysfunction with inhibited sexual excitement Constipation 564.00 Active Alina Castaneda MD PhD Constipation, unspecified Skin lesion 709.9 Active Alina Castaneda MD PhD Unspecified disorder of skin and subcutaneous tissue Malaise and fatigue 780.79 Active Cherelle Speaks COMPUTER SYSTEMS MANAGER Other malaise and fatigue Diarrhea 787.91 Active Cherelle Speaks COMPUTER SYSTEMS MANAGER Diarrhea PHARYNGITIS 462 Active Cherelle Speaks COMPUTER SYSTEMS MANAGER Acute pharyngitis Colitis 558.9 Active Mima Erazo COMPUTER SYSTEMS MANAGER Other and unspecified noninfectious gastroenteritis and colitis WOUND, OPEN, NOSE ICD-873.20 Inactive Alina Castaneda MD PhD DIABETES, TYPE 2 ICD-250.00 Inactive Alina Castaneda MD PhD HYPERTENSION ICD-401.9 Inactive Alina Castaneda MD PhD URI ICD-465.9 Inactive Alina Castaneda MD PhD CHEST PAIN ICD-786.50 Inactive Alina Castaneda MD PhD FH STROKE ICD-V17.1 Inactive Marvel Charles MERCHANDISE PICKUP/RECEIVING ASSOCIATE FATIGUE ICD-780.79 Inactive Alina Castaneda MD PhD [...] MISC 4 a day INSULIN PEN NEEDLE 78741945058 Active Marvel MARROQUIN Active AMITIZA 24 MCG ORAL CAPS Take one capsule BID for constipation LUBIPROSTONE 82777114599 Active Mima Erazo APRN Active LEVEMIR FLEXTOUCH 100 UNIT/ML SC SOPN 75 units SQ each evening, for diabetes INSULIN DETEMIR 41920034546 Active CRYSTAL Rodrigues Active TRUEPLUS LANCETS 30G MISC 3 a day LANCETS 57552338331 Active Marvel MARROQUIN Active TOLTERODINE TARTRATE 2 MG TABS 1 pill twice daily, for bladder TOLTERODINE TARTRATE 40069744271 No Longer Active Vanessa Hickey MD Active AMITIZA 24 MCG ORAL CAPS Take one capsule BID for constipation. LUBIPROSTONE 04555688547 No Longer Active Vanessa Hickey MD Active LOMOTIL 2.5-0.025 MG ORAL TABS take 1-2 tabs PO after each stool, no more than 8 in 24 hours DIPHENOXYLATE-ATROPINE 80043989840 Active Grace Azam RMA Active FLUVOXAMINE MALEATE 100 MG ORAL TABS take one tab every AM et HS, and take 1/ 2 tab at noon FLUVOXAMINE MALEATE 73976835396 Active Gracekailee Nelsonb RMA Active METOPROLOL SUCCINATE 100 MG [id number] 1 by mouth daily for blood pressure METOPROLOL SUCCINATE 60116533920 No Longer Active Grace Azam RMA Active METFORMIN HCL ER 500 MG [id number]-[id number] Take three tablets by mouth everyday METFORMIN HCL 62444794922 No Longer Active Grace Azam RMA Active LOVAZA 1 GM CAPS 4 daily (for triglycerides) OMEGA-3- ACID ETHYL ESTERS 31034002982 No Longer Active Grace Azam RMA Active TRAZODONE HCL 100 MG ORAL TABS 1 tab by mouth for sleep TRAZODONE HCL 66997295607 No Longer Active Gracekailee Nelsonb RMA Active NOVOFINE 32G X 6 MM MISC use one four times per day INSULIN PEN NEEDLE 86091319673 No Longer Active Grace Azam RMA Active BACTROBAN 2 % CREAM Apply to affected area BID for up to 10 days MUPIROCIN CALCIUM 07083844548 No Longer Active Grace Azam RMA Active ZOFRAN 4 MG TABS 1 po q4hr PRN Nausea ONDANSETRON HCL 75367135183 Active Salina Han RMA Active KEFLEX 500 MG CAP 1 po BID x 7 days CEPHALEXIN 52525467159 No Longer Active Cherelle Avila APRN Active FLUVOXAMINE MALEATE 100 MG TABS Take one (1) tablet by mouth am, 1/2 at noon FLUVOXAMINE MALEATE 86466350088 No Longer Active Mima Erazo APRN Active CORICIDIN HBP CONGESTION/COUGH 10-200 MG ORAL CAPS Take as directed on box as needed for cold/flu symptoms DEXTROMETHORPHAN-GUAIFENESIN 51559763415 Active Cherelle Speaks COMPUTER SYSTEMS MANAGER Active OMEGA-3 300 MG ORAL CAPS 4 caps by mouth daily OMEGA-3 FATTY ACIDS 20633723889 Active Mima Erazo COMPUTER SYSTEMS MANAGER Active FLUVOXAMINE MALEATE 100 MG ORAL TABS Take 1/2 tab at noon FLUVOXAMINE MALEATE 17000547525 No Longer Active Cherelle Avila COMPUTER SYSTEMS MANAGER Active [facility] LUBRICANT EYE DROPS 0.4-0.3 % OPHTH SOLN POLYETHYL GLYCOL-PROPYL GLYCOL 51118145036 Active Mima Erazo COMPUTER SYSTEMS MANAGER Active CLONAZEPAM 1 MG TABS 1/2 pill by mouth three times daily CLONAZEPAM 93932448137 Active Alina Castaneda MD PhD Active MIRALAX POWD 17g by mouth daily, for constipation POLYETHYLENE GLYCOL 3350 71516104803 Active Alina Castaneda MD PhD Active HYDROCODONE-ACETAMINOPHEN 5-325 MG TABS 2 tabs by mouth three times daily for pain HYDROCODONE-ACETAMINOPHEN 02758313076 Active Mima Erazo COMPUTER SYSTEMS MANAGER Active HUMALOG KWIKPEN 100 UNIT/ML SC SOPN 20 units with breakfast, 10 units with lunch, 10 units with dinner, for diabetes INSULIN LISPRO (HUMAN ) 04359107846 Active Alina Castaneda MD PhD Active LATUDA 120 MG ORAL TABS 1 pill by mouth nightly LURASIDONE HCL 37664950408 Active Alina Castaneda MD PhD Active COLACE 100 MG CAPS 1 pill by mouth twice daily, for constipation DOCUSATE SODIUM 20937605334 Active Alina Castaneda MD PhD Active TRUETEST TEST STRP check blood sugars 3x/day GLUCOSE BLOOD 33891711591 Active Marvel Mackenzieglari MERCHANDISE PICKUP/RECEIVING ASSOCIATE Active ACCU-CHEK ROSA UZMA Use device to check blood sugars BLOOD GLUCOSE MONITORING SUPPL 63835507655 No Longer Active Maljohn Mackenzieglari MERCHANDISE PICKUP/RECEIVING ASSOCIATE Active ACCU-CHEK ROSA INVITR STRP use strips with device to check blood sugars 3 times daily GLUCOSE BLOOD 96992830145 No Longer Active Marvel MENDOZAP Active VERAPAMIL HCL ER 180 MG ORAL CR-TABS 1 pill by mouth twice daily, for migraine prevention VERAPAMIL HCL 67242472172 Active Alina Castaneda MD PhD Active CYCLOBENZAPRINE HCL 10 MG TABS 1 tablet by mouth three times daily, scheduled CYCLOBENZAPRINE HCL 46312736407 No Longer Active Alina Castaneda MD PhD Active HUMALOG 100 UNIT/ML SOLN Take 20 units with breakfast, 10u with lunch and suppetr. INSULIN LISPRO (HUMAN) 87973814164 No Longer Active Alina Castaneda MD PhD Active TRUETEST TEST STRP check sugars 4x/day GLUCOSE BLOOD 70462199756 No Longer Active Alina Castaneda MD PhD Active MORPHINE SULFATE 30 MG TABS 1 pill by mouth twice daily, for pain MORPHINE SULFATE 40184915092 Active Mima Erazo COMPUTER SYSTEMS MANAGER Active ACYCLOVIR 400 MG ORAL TABS 1 pill three times daily x 5 days, for cold sore outbreak ACYCLOVIR 46950981438 No Longer Active Alina Castaneda MD PhD Active PENICILLIN V POTASSIUM 500 MG TABS 1 pill by mouth three times daily PENICILLIN V POTASSIUM 26581390270 No Longer Active Alina Castaneda MD PhD Active UROXATRAL 10 MG [id number]-[id number] Take 1 tablet by mouth daily ALFUZOSIN HCL 40784874093 No Longer Active Alina Castaneda MD PhD Active THIOTHIXENE 5 MG CAPS by mouth twice a day THIOTHIXENE 61520499359 No Longer Active Alina Castaneda MD PhD Active ZYPREXA 7.5 MG TABS 1 at HS OLANZAPINE 99623180107 No Longer Active Alina Castaneda MD PhD Active BD INSULIN SYRINGE 28G X 1/2" 1 ML MISC 1 four times per day INSULIN SYRINGE-NEEDLE U-100 31512969409 Active Marvel Charles MERCHANDISE PICKUP/RECEIVING ASSOCIATE Active DETROL LA 4 MG [id number] Take 1 tablet by mouth daily TOLTERODINE TARTRATE 81004708210 No Longer Active Alina Castaneda MD PhD Active TERESE CONTOUR TEST STRP monitor blood sugars 3x/day GLUCOSE BLOOD 07445576713 No Longer Active Alina Castaneda MD PhD Active EQL TRUETEST TEST STRP Test blood sugar TID GLUCOSE BLOOD 20882302866 No Longer Active Alina Castaneda MD PhD Active FLUTICASONE PROPIONATE 50 MCG/ACT SUSP 2 sprays each nostril qDay x 30 days FLUTICASONE PROPIONATE 21121021141 No Longer Active Alina Castaneda MD PhD Active IBUPROFEN 200 MG TABS 1 Q 6 hr. PRN IBUPROFEN 96120397096 No Longer Active Alina Castaneda MD PhD Active NIACIN ER 500 MG CR-TABS 4 qHS (for triglycerides) NIACIN 97409702560 No Longer Active Alina Castaneda MD PhD Active ALFUZOSIN HCL ER 10 MG [id number]-[id number] 1 tablet daily ALFUZOSIN HCL 20665662484 Active Vanessa Hickey MD Active SAPHRIS 5 MG SUBL by mouth twice a day ASENAPINE MALEATE 84991975094 No Longer Active Maliheh Ziglari MERCHANDISE PICKUP/RECEIVING ASSOCIATE Active ACETAMINOPHEN 500 MG TABS 2 Q 6 hr. PRN ACETAMINOPHEN 11277626132 No Longer Active Maliheh Ziglari MERCHANDISE PICKUP/RECEIVING ASSOCIATE Active ORPHENADRINE CITRATE ER 100 MG [id number]-XUH 1 every 12 hr. as needed ORPHENADRINE CITRATE 11133939246 No Longer Active Alina Castaneda MD PhD Active NIACIN CR 500 MG CR-TABS 2 qHS NIACIN 22126234213 No Longer Active Alina Castaneda MD PhD Active AMOXICILLIN 500 MG CAPS 2 po BID x 10 days AMOXICILLIN 76163944470 No Longer Active Alina Castaneda MD PhD Active HYDROCODONE-ACETAMINOPHEN 7.5-325 MG TABS 1 four times a day as needed for pain HYDROCODONE-ACETAMINOPHEN 51647138627 No Longer Active Alina Castaneda MD PhD Active DOXEPIN HCL 10 MG CAPS Take 1 tablet by mouth daily DOXEPIN HCL 94586023233 No Longer Active Salina Han A Active NAVANE 10 MG CAPS 1/2 tablet twice a day THIOTHIXENE No Longer Active Salina Han A Active CYCLOBENZAPRINE HCL 10 MG TABS 1/2 tablet by mouth every 8 hours as needed for muscle spasms CYCLOBENZAPRINE HCL 88609374927 No Longer Active Alina Castaneda MD PhD Active BACTROBAN 2 % CREAM apply to ear and nose twice daily MUPIROCIN CALCIUM 93517000565 No Longer Active Alina Castaneda MD PhD Active HYDROCODONE-ACETAMINOPHEN 5-325 MG TABS take one tablet by mouth every four hours as needed for pain HYDROCODONE-ACETAMINOPHEN 82327801248 No Longer Active Alina Castaneda MD PhD Active ZOLPIDEM TARTRATE 10 MG TABS take at bedtime ZOLPIDEM TARTRATE 87359420057 Active Alina Castaneda MD PhD Active ZYPREXA 5 MG TABS take one tablet by mouth every evening OLANZAPINE 59825256238 No Longer Active Alina Castaneda MD PhD Active ALBUTEROL SULFATE 0.083 % NEBU SOLN one vial per nebulizer TID and PRN cough/ soa ALBUTEROL SULFATE 51495735423 No Longer Active Alina Castaneda MD PhD Active GUAIFENESIN 600 MG [id number] 1 tablet by mouth twice daily if needed for cough GUAIFENESIN 69489240614 No Longer Active Marvel Charles MERCHANDISE PICKUP/RECEIVING ASSOCIATE Active AZITHROMYCIN 500 MG SOLR 1 po q day AZITHROMYCIN 43942759335 No Longer Active Alina Castaneda MD PhD Active PROMETHAZINE-CODEINE 6.25-10 MG/5ML SYRP 1 tsp po q 6 hours prn cough PROMETHAZINE-CODEINE 53425656704 No Longer Active Alina Castaneda MD PhD Active CEFDINIR 300 MG CAPS by mouth twice a day CEFDINIR 87198630425 No Longer Active Alina Castaneda MD PhD Active METFORMIN HCL 500 MG RS10O-IIH Take 3 tablets by mouth everyday METFORMIN HCL 62973721694 No Longer Active Alina Castaneda MD PhD Active LEVEMIR 100 UNIT/ML SOLN 90 units SQ qHS INSULIN DETEMIR 20951146457 No Longer Active Marvel MARROQUIN Active TOPROL XL 100 MG [id number]-OXJ 1 @ HS METOPROLOL SUCCINATE 03331398573 No Longer Active Marvel MARROQUIN Active ALLOPURINOL 300 MG TABS Take one by mouth daily ALLOPURINOL 42420422242 Active Alina Castaneda MD PhD Active ZYPREXA 10 MG TABS Take one by mouth daily OLANZAPINE 94856105762 No Longer Active Alina Castaneda MD PhD Active NOVOLOG 100 UNIT/ML SOLN 40 units with every meal INSULIN ASPART 14967064136 No Longer Active Alina Castaneda MD PhD Active VERAPAMIL HCL CR 120 MG TAB CR 1 qPM VERAPAMIL HCL 19512999161 No Longer Active Salina Ervinamelia ROJAS Active ZYPREXA 15 MG TABS Take 1 tablet by mouth daily OLANZAPINE 89047960651 No Longer Active Marvel MARROQUIN Active LISINOPRIL 20 MG TABS 1 BID LISINOPRIL 42641171777 Active Alina Castaneda MD PhD Active ALBUTEROL SULFATE (2.5 MG/3ML) 0.083% NEBU 1 neb tid and prn cough ALBUTEROL SULFATE 07683896354 No Longer Active Alina Castaneda MD PhD Active TRAVATAN Z 0.004 % SOLN 1 gtt each eye daily TRAVOPROST 94731425066 Active CRYSTAL Suarez Active LANTUS 100 UNIT/ML SOLN 60 units sq q hs INSULIN GLARGINE 35080623552 No Longer Active CRYSTAL Suarez Active ALBUTEROL SULFATE (2.5 MG/3ML) 0.083% NEBU 1 neb tid and prn cough ALBUTEROL SULFATE (2.5 MG/3ML) 0.083% NEBU 620862 ALBUTEROL SULFATE Inactive ZYPREXA 15 MG TABS Take 1 tablet by mouth daily ZYPREXA 15 MG TABS 953925 OLANZAPINE Inactive VERAPAMIL HCL CR 120 MG TAB CR 1 qPM VERAPAMIL HCL CR 120 MG TAB CR VERAPAMIL HCL Inactive ZYPREXA 10 MG TABS Take one by mouth daily ZYPREXA 10 MG TABS 993937 OLANZAPINE Inactive TOPROL XL 100 MG [id number] 1 @ HS TOPROL XL 100 MG [id number]-RWJ METOPROLOL SUCCINATE Inactive LEVEMIR 100 UNIT/ML SOLN 90 units SQ qHS LEVEMIR 100 UNIT/ML SOLN INSULIN DETEMIR Inactive PROMETHAZINE-CODEINE 6.25-10 MG/5ML SYRP 1 tsp po q 6 hours prn cough PROMETHAZINE-CODEINE 6.25-10 MG/5ML SYRP 665461 PROMETHAZINE- CODEINE Inactive GUAIFENESIN 600 MG WF36G-[id number] 1 tablet by mouth twice daily if needed for cough GUAIFENESIN 600 MG [id number]-XJC GUAIFENESIN Inactive ALBUTEROL SULFATE 0.083 % NEBU SOLN one vial per nebulizer TID and PRN cough/ soa ALBUTEROL SULFATE 0.083 % NEBU SOLN 485469 ALBUTEROL SULFATE Inactive ZYPREXA 5 MG TABS take one tablet by mouth every evening ZYPREXA 5 MG TABS 005904 OLANZAPINE Inactive HYDROCODONE-ACETAMINOPHEN 5-325 MG TABS take one tablet by mouth every four hours as needed for pain HYDROCODONE-ACETAMINOPHEN 5-325 MG TABS 322290 HYDROCODONE-ACETAMINOPHEN Inactive BACTROBAN 2 % CREAM apply to ear and nose twice daily BACTROBAN 2 % CREAM 359397 MUPIROCIN CALCIUM Inactive CYCLOBENZAPRINE HCL 10 MG TABS 1/2 tablet by mouth every 8 hours as needed for muscle spasms CYCLOBENZAPRINE HCL 10 MG TABS 164235 CYCLOBENZAPRINE HCL Inactive NAVANE 10 MG CAPS 1/2 tablet twice a day NAVANE 10 MG CAPS THIOTHIXENE Inactive DOXEPIN HCL 10 MG CAPS Take 1 tablet by mouth daily DOXEPIN HCL 10 MG CAPS 2405507 DOXEPIN HCL Inactive HYDROCODONE-ACETAMINOPHEN 7.5-325 MG TABS 1 four times a day as needed for pain HYDROCODONE-ACETAMINOPHEN 7.5-325 MG TABS 696679 HYDROCODONE-ACETAMINOPHEN Inactive NIACIN CR 500 MG CR-TABS 2 qHS NIACIN CR 500 MG CR- TABS NIACIN Inactive ORPHENADRINE CITRATE ER 100 MG [id number]-IHL 1 every 12 hr. as needed ORPHENADRINE CITRATE ER 100 MG [id number] ORPHENADRINE CITRATE Inactive ACETAMINOPHEN 500 MG TABS 2 Q 6 hr. PRN ACETAMINOPHEN 500 MG TABS 870360 ACETAMINOPHEN Inactive SAPHRIS 5 MG SUBL by mouth twice a day SAPHRIS 5 MG SUBL ASENAPINE MALEATE Inactive NIACIN ER 500 MG CR-TABS 4 qHS (for triglycerides) NIACIN ER 500 MG CR-TABS NIACIN Inactive IBUPROFEN 200 MG TABS 1 Q 6 hr. PRN IBUPROFEN 200 MG TABS 905750 IBUPROFEN Inactive FLUTICASONE PROPIONATE 50 MCG/ACT SUSP 2 sprays each nostril qDay x 30 days FLUTICASONE PROPIONATE 50 MCG/ACT SUSP 621304 FLUTICASONE PROPIONATE Inactive EQL TRUETEST TEST STRP Test blood sugar TID EQL TRUETEST TEST STRP GLUCOSE BLOOD Inactive TERESE CONTOUR TEST STRP monitor blood sugars 3x/day TERESE CONTOUR TEST STRP GLUCOSE BLOOD Inactive DETROL LA 4 MG [id number] Take 1 tablet by mouth daily DETROL LA 4 MG [id number] TOLTERODINE TARTRATE Inactive ZYPREXA 7.5 MG TABS 1 at HS ZYPREXA 7.5 MG TABS 440265 OLANZAPINE Inactive THIOTHIXENE 5 MG CAPS by mouth twice a day THIOTHIXENE 5 MG CAPS 043532 THIOTHIXENE Inactive UROXATRAL 10 MG [id number] Take 1 tablet by mouth daily UROXATRAL 10 MG BX36N-NBB ALFUZOSIN HCL Inactive ACYCLOVIR 400 MG ORAL TABS 1 pill three times daily x 5 days, for cold sore outbreak ACYCLOVIR 400 MG ORAL TABS 639764 ACYCLOVIR Inactive TRUETEST TEST STRP check sugars 4x/day TRUETEST TEST STRP GLUCOSE BLOOD Inactive HUMALOG 100 UNIT/ML SOLN Take 20 units with breakfast, 10u with lunch and suppetr. HUMALOG 100 UNIT/ML SOLN INSULIN LISPRO ( HUMAN) Inactive CYCLOBENZAPRINE HCL 10 MG TABS 1 tablet by mouth three times daily, scheduled CYCLOBENZAPRINE HCL 10 MG TABS 497545 CYCLOBENZAPRINE HCL Inactive ACCU-CHEK ROSA INVITR STRP use strips with device to check blood sugars 3 times daily ACCU-CHEK ROSA INVITR STRP GLUCOSE BLOOD Inactive ACCU-CHEK ROSA UZMA Use device to check blood sugars ACCU-CHEK ROSA UZMA BLOOD GLUCOSE MONITORING SUPPL Inactive FLUVOXAMINE MALEATE 100 MG ORAL TABS Take 1/2 tab at noon FLUVOXAMINE MALEATE 100 MG ORAL TABS 930393 FLUVOXAMINE MALEATE Inactive FLUVOXAMINE MALEATE 100 MG TABS Take one (1) tablet by mouth am, 1/2 at noon FLUVOXAMINE MALEATE 100 MG TABS 875614 FLUVOXAMINE MALEATE Inactive BACTROBAN 2 % CREAM Apply to affected area BID for up to 10 days BACTROBAN 2 % CREAM 793590 MUPIROCIN CALCIUM Inactive NOVOFINE 32G X 6 MM MISC use one four times per day NOVOFINE 32G X 6 MM MISC INSULIN PEN NEEDLE Inactive TRAZODONE HCL 100 MG ORAL TABS 1 tab by mouth for sleep TRAZODONE HCL 100 MG ORAL TABS 679108 TRAZODONE HCL Inactive LOVAZA 1 GM CAPS 4 daily (for triglycerides) LOVAZA 1 GM CAPS 873427 BNJQA-1-WTTN ETHYL ESTERS Inactive METFORMIN HCL ER 500 MG MC71Y-VMY Take three tablets by mouth everyday METFORMIN HCL ER 500 MG HR11N-NRI METFORMIN HCL Inactive METOPROLOL SUCCINATE 100 MG HD19Q-GZJ 1 by mouth daily for blood pressure METOPROLOL SUCCINATE 100 MG KD43Y-TIF METOPROLOL SUCCINATE Inactive AMITIZA 24 MCG ORAL CAPS Take one capsule BID for constipation. AMITIZA 24 MCG ORAL CAPS LUBIPROSTONE Inactive TOLTERODINE TARTRATE 2 MG TABS 1 pill twice daily, for bladder TOLTERODINE TARTRATE 2 MG TABS 373627 TOLTERODINE TARTRATE Inactive CEFDINIR 300 MG CAPS by mouth twice a day CEFDINIR 300 MG CAPS 734108 CEFDINIR Inactive AZITHROMYCIN 500 MG SOLR 1 po q day AZITHROMYCIN 500 MG SOLR 40422342370 AZITHROMYCIN Inactive AMOXICILLIN 500 MG CAPS 2 po BID x 10 days AMOXICILLIN 500 MG CAPS 244414 AMOXICILLIN Inactive PENICILLIN V POTASSIUM 500 MG TABS 1 pill by mouth three times daily PENICILLIN V POTASSIUM 500 MG TABS 846997 PENICILLIN V POTASSIUM Inactive KEFLEX 500 MG CAP 1 po BID x 7 days KEFLEX 500 MG CAP 533309 CEPHALEXIN Inactive Immunizations Vaccine Administration Date Value [...] Fluvirin, Fluarix, Agriflu(>=18 yo)) Fluzone (>3 yrs.) [[id number]] Influenza, seasonal, injectable pneumococcal immunization administered Pneumovax [...] MICROALBUMIN - Chemistry sodium, serum 137 mmol/L 739-929 3333/05/19 potassium, serum 5.2 mmol/L 3.5-5.2 chloride, serum [...] Panel - Chemistry sodium, serum 137 mmol/L 409-805 1633/10/12 potassium, serum 4.8 mmol/L 3.5-5.2 chloride, serum 102 mmol/L 98-107 carbon dioxide, venous blood 27.6 mmol/L 21.0-32.0 blood glucose 168 mg/dL 65-110 calcium, serum 9.0 mg/dL 8.5-10.1 urea nitrogen, blood 15 mg/dL 7-18 creatinine, serum 1.04 mg/dL 0.55-1.30 sodium, serum 138 mmol/L 564-425 3223/11/11 potassium, serum 4.7 mmol/L 3.5-5.2 chloride, serum [...] % 11.6-14.8 platelet count 252 10^3/MM^3 10*3/mm3 417-424 3672/10/12 leukocyte count, blood 5.8 10^3/MM^3 10*3/mm3 4.6-10.2 [...] 240 10^3/MM^3 10*3/mm3 142-424 Lab Report: Chlamydia/GC APTIMA/87351, HIV-1/2 Agn/Dominga/24589, RPR (DX) W ... - Chemistry hepatitis B surface antigen NON-REACTIVE NON-REACTIVE Lab Report: Chlamydia/GC APTIMA/54363, HIV-1/2 Agn/Dominga/71723, RPR (DX) W ... - Lab chlamydia DNA probe NOT DETECTED NOT DETECTED Lab Report: Chlamydia/GC APTIMA/15307, HIV-1/2 Agn/Dominga/24432, RPR (DX) W ... - Microbiology Neisseria gonorrhoeae DNA probe NOT DETECTED NOT DETECTED Lab Report: Chlamydia/GC APTIMA/46088, HIV-1/2 Agn/Dominga/04991, RPR (DX) W ... - Serology rapid plasma reagin antibody titer NON-REACTIVE NON-REACTIVE Lab Report: HGBA1C - Chemistry hemoglobin A1C, blood, as % of total hemoglobin 6.1 % 4.3-6.0 hemoglobin A1C, blood, as % of total hemoglobin 6.3 % 4.3-6.0 Lab Report: Lipid Panel, HEPATIC PANEL, MICROALBUMIN, CBC - Chemistry cholesterol, serum 131 mg/dL 107-347 1162/06/03 triglyceride, serum, fasting 383 mg/dL 30-200 HDL [...] 4.7 mg/dL 2.6-7.2 cholesterol, serum 142 mg/dL 794-678 6398/06/26 triglyceride, serum, fasting 272 mg/dL 30-200 HDL [...] negative Encounters Code Encounter Date Provider Facility CPT-41004 Level 3 Est. Patient 14:39:00 AURICULAR ACUPUNCTURIST Vanessa Hickey MD [facility] CPT-58608 Level 2 Est. Patient 18:43:34 CDT Mima Erazo [facility] CPT-20093 Level 3 Est. Patient 16:22:09 CDT Cherelle Avila [facility]-92404 Level 4 Est. Patient 17:55:14 CDT Mima Erazo [facility] CPT-56531 Level 2 Est. Patient 17:13:21 CDT Alina Castaneda MD [facility]54294 Level 3 Est. Patient 14:46:15 CDT Vanessa Hickey MD [facility]-74049 Level 3 Est. Patient 09:34:56 CDT Alina Castaneda MD [facility]21541 Level 3 Est. Patient 21:40:19 CDT Mima Erazo [facility]-80394 Level 3 Est. Patient 09:26:40 CDT Marvel Charles [facility] [facility] [place] Level 3 Est. Patient 12:36:43 CDT Vanessa Hickey MD [facility]-00833 Level 3 Est. Patient 12:57:49 CDT Vanessa Hickey MD [facility]51403 Level 3 Est. Patient 00:28:25 CDT Alina Castaneda MD [facility]-89801 Level 2 Est. Patient 12:52:14 CDT Alina Castaneda MD [facility]36363 Level 3 Est. Patient 11:51:18 AURICULAR ACUPUNCTURIST Alina Castaneda MD [facility]63048 Level 3 Est. Patient 10:09:22 AURICULAR ACUPUNCTURIST Alina Castaneda MD [facility]49308 Level 3 Est. Patient 14:36:26 AURICULAR ACUPUNCTURIST Marvel Charles [facility]-41605 Level 3 Est. Patient 13:34:47 AURICULAR ACUPUNCTURIST Alina Castaneda MD [facility]-70663 Level 3 Est. Patient 19:52:08 AURICULAR ACUPUNCTURIST Alina Castaneda MD [facility]-16668 Level 3 Est. Patient 10:01:51 AURICULAR ACUPUNCTURIST Brookslashondanivia Araceli [facility]-70486 Level 3 Est. Patient 21:54:06 CDT Vanessa Hickey MD [facility]-14024 Level 3 Est. Patient 08:54:46 CDT Alina Castaneda MD [facility]13165 Level 3 Est. Patient 09:32:11 CDT Marvel Charles [facility]-97836 Level 3 Est. Patient 12:02:49 CDT Alina Castaneda MD [facility]-27165 Level 3 Est. Patient 19:17:33 CDT Alina Castaneda MD [facility]-43790 Level 3 Est. Patient 13:19:10 CDT Marvel Charles [facility]-75744 Level 3 Est. Patient 08:20:05 CDT Alina Castaneda MD [facility]-31414 Level 3 Est. Patient 15:17:18 CDT Alina Castaneda MD [facility]-13305 Level 3 Est. Patient 14:25:36 AURICULAR ACUPUNCTURIST Brooksjohn Charles [facility]-48092 Level 3 Est. Patient 10:09:15 AURICULAR ACUPUNCTURIST Brooksjohn Charles [facility]-76659 Level 3 Est. Patient 21:28:43 CDT Alina Castaneda MD [facility]-87025 Level 3 Est. Patient 15:20:11 CDT Maliheh Ziglari [facility]-42270 Level 4 Est. Patient 19:08:12 CDT Alina Castaneda MD [facility]-48533 Level 3 Est. Patient 15:06:39 CDT Brooksnivia Charles [facility]-02412 Level 4 Est. Patient 17:48:15 CDT Alina Castaneda MD [facility]-48291 Level 3 Est. Patient 14:53:49 CDT Alina Castaneda MD [facility]-66028 Level 3 Est. Patient 09:35:16 CDT Alina Castaneda MD [facility]-05261 Level 3 Est. Patient 12:23:22 CDT Alina Castaneda MD [facility]-58240 Level 3 Est. Patient 16:19:15 CDT Alina Castaneda MD [facility]-22284 Level 3 Est. Patient 21:39:56 AURICULAR ACUPUNCTURIST Alina Castaneda MD [facility]-59401 Level 4 Est. Patient 14:12:56 AURICULAR ACUPUNCTURIST Alina Castaneda MD [facility]-29332 Level 2 Est. Patient 15:34:57 AURICULAR ACUPUNCTURIST Alina Castaneda MD [facility]-30756 Level 3 Est. Patient 12:17:04 AURICULAR ACUPUNCTURIST Alina Castaneda MD [facility]-66658 Level 3 Est. Patient 09:18:18 AURICULAR ACUPUNCTURIST Marvel Charles [facility]-02895 Level 2 Est. Patient 21:50:24 CDT Alina Castaneda MD [facility]13771 Level 3 Est. Patient 09:17:28 CDT Marvel Charles [facility] CPT-41405 Level 4 Est. Patient 18:54:02 CDT Alina Castaneda MD [facility] [facility] CPT-15935 Level 3 Est. Patient 10:47:10 CDT Alina Castaneda MD [facility]-90846 Level 3 Est. Patient 09:22:20 CDT [place] [facility] CPT-20766 Level 3 Est. Patient 16:39:43 CDT [place] Arac[facility] CPT-55945 Level 3 Est. Patient 16:05:16 CDT Alina Castaneda MD [facility] CPT-62745 Level 3 Est. Patient 00:29:15 CDT Alina Castaneda MD [facility] CPT-35424 Level 3 Est. Patient 10:49:22 AURICULAR ACUPUNCTURIST Marvel [facility] CPT-38275 Level 3 Est. Patient 21:30:19 AURICULAR ACUPUNCTURIST Alina Castaneda MD [facility] CPT-08509 Level 4 Est. Patient 17:04:11 AURICULAR ACUPUNCTURIST Brooksjohn [facility] CPT-21958 Level 3 Est. Patient 15:34:11 AURICULAR ACUPUNCTURIST Marvel [facility] CPT-92855 Level 2 Est. Patient 12:51:58 AURICULAR ACUPUNCTURIST Alina Castaneda MD PhD [facility] CPT-50821 Level 3 Est. Patient 13:20:01 AURICULAR ACUPUNCTURIST Alina Castaneda MD [facility] CPT-41919 Level 3 Est. Patient 09:23:35 CDT Alina Castaneda MD PhD [facility] Procedures Code Procedure Name Date Entry Date Standard Description CPT-05034 Bladder Scan 14:39:01 AURICULAR ACUPUNCTURIST CPT-TCMM Transitional Care Mgmt-Moderate 10:30:19 AURICULAR ACUPUNCTURIST CPT-55493 Bladder Scan 12:36:44 CDT CPT-84987 Bladder Scan 21:54:06 CDT CPT-G0008 Administration of Influenza Virus Vaccine 13:05:26 CDT CPT-61044 Fluzone Quadrivalent Intramuscular Suspension 0.5 ML 13: 05:26 CDT CPT-46844 Administration single or combination vaccine inc oral 11 :49:51 CDT CPT-53642 Pneumovax 11:49:51 CDT CPT-78500 Ribs unilateral 2V 12:37:22 AURICULAR ACUPUNCTURIST CPT-03460 Chest 2V Frontal and Lat 17:15:26 CDT CPT-35028 Abx/Therapy Injection 18:54:02 CDT CPT-J0696 Rocephin 1000 mg (Ceftriaxone) 16:00:32 CDT CPT-29055 Chest 2V Frontal and Lat 15:26:45 CDT CPT-85412 Chest 2V Frontal and Lat 10:23:27 CDT CPT-65003 Venipuncture Draw Fee 10:11:00 CDT CPT-89441 Administration single or combination vaccine inc oral 11 :56:38 CDT CPT-54437 Influenza split virus > age 3 11:56:38 CDT CPT-08132 Venipuncture Draw Fee 08:49:54 AURICULAR ACUPUNCTURIST CPT-89864 EKG Trac and Interp 17:54:19 AURICULAR ACUPUNCTURIST
--- OUTSIDE RECORDS SUMMARY | 2018-07-02 16:18 | XMS REPORT | Clinical Summary ---
Author Author Admin, TERELL Organization [facility] Address Unknown Phone Unavailable Allergies, Adverse [...] history of stroke (cerebrovascular) FATIGUE 780.79 Resolved Alnia Castaneda MD PhD Other malaise and fatigue 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 Erazo [employer]ING [employer] TECHNICIAN Benign paroxysmal positional vertigo Vertigo, benign paroxysmal position 386.11 Inactive Mima Erazo [employer]ING [employer] TECHNICIAN Benign paroxysmal positional vertigo High-risk sexual behavior V69.2 Active Alina Castaneda MD PhD High-risk sexual behavior Erectile dysfunction 302.72 Active Alina Castaneda MD PhD Psychosexual dysfunction with inhibited sexual excitement Constipation 564.00 Active Alina Castaneda MD PhD Constipation, unspecified Skin lesion 709.9 Active Alina Castaneda MD PhD Unspecified disorder of skin and subcutaneous tissue Malaise and fatigue 780.79 Active Cherelle Speaks MANUFACTURING LAB TECHNICIAN Other malaise and fatigue Diarrhea 787.91 Active Cherelle Speaks MANUFACTURING LAB TECHNICIAN Diarrhea PHARYNGITIS 462 Active Cherelle Speaks MANUFACTURING LAB TECHNICIAN Acute pharyngitis Colitis 558.9 Active Mima Erazo MANUFACTURING LAB TECHNICIAN Other and unspecified noninfectious gastroenteritis and [...] SKIN LESION ICD-709.9 Roro Castaneda MD PhD PNEUMONIA, ORGANISM UNSPECIFIED ICD-486 Roro Castaneda MD PhD DIABETIC HYPOGLYCEMIA, TYPE II ICD-250.80 Inactive Marvel 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 LUBIPROSTONE 65550359361 No Longer Active Vanessa Hickey MD Active LOMOTIL 2.5-0.025 MG ORAL TABS take 1-2 tabs PO after each stool, no more than 8 in 24 hours DIPHENOXYLATE-ATROPINE 68746067432 Active Grace ROJAS Active FLUVOXAMINE MALEATE 100 MG ORAL TABS take one tab every AM et HS, and take 1/ 2 tab at noon FLUVOXAMINE MALEATE 82543031939 Active Grace ROJAS Active METOPROLOL SUCCINATE 100 MG [id number]-CVV 1 by mouth daily for blood pressure METOPROLOL SUCCINATE 64762466609 No Longer Active Grace Nelsonb RMA Active METFORMIN HCL ER 500 MG FC01Y-QHW Take three tablets by mouth everyday METFORMIN HCL 84723320000 No Longer Active Grace Azam RMA Active LOVAZA 1 GM CAPS 4 daily (for triglycerides) OMEGA-3- ACID ETHYL ESTERS 06556290760 No Longer Active Grace Azam RMA Active TRAZODONE HCL 100 MG ORAL TABS 1 tab by mouth for sleep TRAZODONE HCL 82037393793 No Longer Active Grace Azam RMA Active NOVOFINE 32G X 6 MM MISC use one four times per day INSULIN PEN NEEDLE 16525655390 No Longer Active Grace Azam RMA Active BACTROBAN 2 % CREAM Apply to affected area BID for up to 10 days MUPIROCIN CALCIUM 81369511182 No Longer Active Grace Azam RMA Active ZOFRAN 4 MG TABS 1 po q4hr PRN Nausea ONDANSETRON HCL 83941817913 Active Salina Han RMA Active KEFLEX 500 MG CAP 1 po BID x 7 days CEPHALEXIN 75240489957 No Longer Active Cherelle Speaks MANUFACTURING LAB TECHNICIAN Active FLUVOXAMINE MALEATE 100 MG TABS Take one (1) tablet by mouth am, 1/2 at noon FLUVOXAMINE MALEATE 96116403880 No Longer Active Mima Erazo MANUFACTURING LAB TECHNICIAN Active CORICIDIN HBP CONGESTION/COUGH 10-200 MG ORAL CAPS Take as directed on box as needed for cold/flu symptoms DEXTROMETHORPHAN-GUAIFENESIN 24005216215 Active Cherelle Speaks MANUFACTURING LAB TECHNICIAN Active OMEGA-3 300 MG ORAL CAPS 4 caps by mouth daily OMEGA-3 FATTY ACIDS 57406635487 Active Cherelle Speaks MANUFACTURING LAB TECHNICIAN Active FLUVOXAMINE MALEATE 100 MG ORAL TABS Take 1/2 tab at noon FLUVOXAMINE MALEATE 48051745291 No Longer Active Cherelle Avila MANUFACTURING LAB TECHNICIAN Active [facility] LUBRICANT EYE DROPS 0.4-0.3 % OPHTH SOLN POLYETHYL GLYCOL-PROPYL GLYCOL 13183725674 Active Mima Erazo MANUFACTURING LAB TECHNICIAN Active CLONAZEPAM 1 MG TABS 1/2 pill by mouth three times daily CLONAZEPAM 02374517704 Active Alina Castaneda MD PhD Active MIRALAX POWD 17g by mouth daily, for constipation POLYETHYLENE GLYCOL 3350 79188904398 Active Alina Castaneda MD PhD Active HYDROCODONE-ACETAMINOPHEN 5-325 MG TABS 2 tabs by mouth three times daily for pain HYDROCODONE-ACETAMINOPHEN 89279006219 Active Mima Erazo MANUFACTURING LAB TECHNICIAN Active HUMALOG KWIKPEN 100 UNIT/ML SC SOPN 20 units with breakfast, 10 units with lunch, 10 units with dinner, for diabetes INSULIN LISPRO (HUMAN ) 19321831198 Active Alina Castaneda MD PhD Active LATUDA 120 MG ORAL TABS 1 pill by mouth nightly LURASIDONE HCL 26159919819 Active Alina Castaneda MD PhD Active COLACE 100 MG CAPS 1 pill by mouth twice daily, for constipation DOCUSATE SODIUM 61747436158 Active Alina Castaneda MD PhD Active TRUETEST TEST STRP check blood sugars 3x/day GLUCOSE BLOOD 01711420349 Active Marvel Thurstonari INFORMAL WAITER/WAITRESS Active ACCU-CHEK ROSA UZMA Use device to check blood sugars BLOOD GLUCOSE MONITORING SUPPL 09658506627 No Longer Active Marvel Mackenzieglari LOPEZ Active ACCU-CHEK ROSA INVITR STRP use strips with device to check blood sugars 3 times daily GLUCOSE BLOOD 88403152287 No Longer Active Marvel MENDOZAP Active VERAPAMIL HCL ER 180 MG ORAL CR-TABS 1 pill by mouth twice daily, for migraine prevention VERAPAMIL HCL 45951494665 Active Alina Castaneda MD PhD Active CYCLOBENZAPRINE HCL 10 MG TABS 1 tablet by mouth three times daily, scheduled CYCLOBENZAPRINE HCL 33048696265 No Longer Active Alina Castaneda MD PhD Active HUMALOG 100 UNIT/ML SOLN Take 20 units with breakfast, 10u with lunch and suppetr. INSULIN LISPRO (HUMAN) 29685168139 No Longer Active Alina Castaneda MD PhD Active TRUETEST TEST STRP check sugars 4x/day GLUCOSE BLOOD 81952923690 No Longer Active Alina Castaneda MD PhD Active MORPHINE SULFATE 30 MG TABS 1 pill by mouth twice daily, for pain MORPHINE SULFATE 16054847722 Active Mima Erazo MANUFACTURING LAB TECHNICIAN Active ACYCLOVIR 400 MG ORAL TABS 1 pill three times daily x 5 days, for cold sore outbreak ACYCLOVIR 47585041393 No Longer Active Alina Castaneda MD PhD Active PENICILLIN V POTASSIUM 500 MG TABS 1 pill by mouth three times daily PENICILLIN V POTASSIUM 24274660311 No Longer Active Alina Castaneda MD PhD Active UROXATRAL 10 MG [id number]-AAM Take 1 tablet by mouth daily ALFUZOSIN HCL 55384824579 No Longer Active Alina Castaneda MD PhD Active THIOTHIXENE 5 MG CAPS by mouth twice a day THIOTHIXENE 74268864480 No Longer Active Alina Castaneda MD PhD Active ZYPREXA 7.5 MG TABS 1 at HS OLANZAPINE 24654579007 No Longer Active Alina Castaneda MD PhD Active BD INSULIN SYRINGE 28G X 1/2" 1 ML MISC 1 four times per day INSULIN SYRINGE-NEEDLE U-100 08288569412 Active [facility] Gurdeepglestela [facility] Active DETROL LA 4 MG ZF10R-ULA Take 1 tablet by mouth daily TOLTERODINE TARTRATE 33099782733 No Longer Active Alina Castaneda MD PhD Active TERESE CONTOUR TEST STRP monitor blood sugars 3x/day GLUCOSE BLOOD 75428511492 No Longer Active Alina Castaneda MD PhD Active EQL TRUETEST TEST STRP Test blood sugar TID GLUCOSE BLOOD 52519272179 No Longer Active Alina Castaneda MD PhD Active FLUTICASONE PROPIONATE 50 MCG/ACT SUSP 2 sprays each nostril qDay x 30 days FLUTICASONE PROPIONATE 96647002913 No Longer Active lAina Castaneda MD PhD Active IBUPROFEN 200 MG TABS 1 Q 6 hr. PRN IBUPROFEN 07355287242 No Longer Active Alina Castaneda MD PhD Active NIACIN ER 500 MG CR-TABS 4 qHS (for triglycerides) NIACIN 49451114496 No Longer Active Alina Castaneda MD PhD Active ALFUZOSIN HCL ER 10 MG WL13G-MYB 1 tablet daily ALFUZOSIN HCL 80766649904 Active Vanessa Hickey MD Active SAPHRIS 5 MG SUBL by mouth twice a day ASENAPINE MALEATE 59907906091 No Longer Active Maliheh Ziglari INFORMAL WAITER/WAITRESS Active ACETAMINOPHEN 500 MG TABS 2 Q 6 hr. PRN ACETAMINOPHEN 32244327998 No Longer Active Maliheh Ziglari INFORMAL WAITER/WAITRESS Active ORPHENADRINE CITRATE ER 100 MG ZR69F-YZN 1 every 12 hr. as needed ORPHENADRINE CITRATE 32751656266 No Longer Active Alina Castaneda MD PhD Active NIACIN CR 500 MG CR-TABS 2 qHS NIACIN 94591194638 No Longer Active Alina Castaneda MD PhD Active AMOXICILLIN 500 MG CAPS 2 po BID x 10 days AMOXICILLIN 20234307904 No Longer Active Alina Castaneda MD PhD Active HYDROCODONE-ACETAMINOPHEN 7.5-325 MG TABS 1 four times a day as needed for pain HYDROCODONE-ACETAMINOPHEN 77606373734 No Longer Active Alina Castaneda MD PhD Active DOXEPIN HCL 10 MG CAPS Take 1 tablet by mouth daily DOXEPIN HCL 04286197533 No Longer Active Salina ROJAS Active NAVANE 10 MG CAPS 1/2 tablet twice a day THIOTHIXENE No Longer Active Salina ROBBINSA Active CYCLOBENZAPRINE HCL 10 MG TABS 1/2 tablet by mouth every 8 hours as needed for muscle spasms CYCLOBENZAPRINE HCL 02759704338 No Longer Active Alina Castaneda MD PhD Active BACTROBAN 2 % CREAM apply to ear and nose twice daily MUPIROCIN CALCIUM 26738413561 No Longer Active Alina Castaneda MD PhD Active HYDROCODONE-ACETAMINOPHEN 5-325 MG TABS take one tablet by mouth every four hours as needed for pain HYDROCODONE-ACETAMINOPHEN 74694035065 No Longer Active Alina Castaneda MD PhD Active ZOLPIDEM TARTRATE 10 MG TABS take at bedtime ZOLPIDEM TARTRATE 64427678251 Active Alina Castaneda MD PhD Active ZYPREXA 5 MG TABS take one tablet by mouth every evening OLANZAPINE 52372159165 No Longer Active Alina Castaneda MD PhD Active ALBUTEROL SULFATE 0.083 % NEBU SOLN one vial per nebulizer TID and PRN cough/ soa ALBUTEROL SULFATE 47110404655 No Longer Active Alina Castaneda MD PhD Active GUAIFENESIN 600 MG MM81Y-CWW 1 tablet by mouth twice daily if needed for cough GUAIFENESIN 22817857544 No Longer Active Marvel MARROQUIN Active AZITHROMYCIN 500 MG SOLR 1 po q day AZITHROMYCIN 53855691270 No Longer Active Alina Castaneda MD PhD Active PROMETHAZINE-CODEINE 6.25-10 MG/5ML SYRP 1 tsp po q 6 hours prn cough PROMETHAZINE-CODEINE 23977486230 No Longer Active Alina Castaneda MD PhD Active CEFDINIR 300 MG CAPS by mouth twice a day CEFDINIR 78669002489 No Longer Active Alina Castaneda MD PhD Active METFORMIN HCL 500 MG HY74G-RGO Take 3 tablets by mouth everyday METFORMIN HCL 15482762866 No Longer Active Alina Castaneda MD PhD Active LEVEMIR 100 UNIT/ML SOLN 90 units SQ qHS INSULIN DETEMIR 83225409468 No Longer Active Marvel MARROQUIN Active TOPROL XL 100 MG QN75Z-WVS 1 @ HS METOPROLOL SUCCINATE 29049135613 No Longer Active Marvel MARROQUIN Active ALLOPURINOL 300 MG TABS Take one by mouth daily ALLOPURINOL 42975831423 Active Alina Castaneda MD PhD Active ZYPREXA 10 MG TABS Take one by mouth daily OLANZAPINE 01198743562 No Longer Active Alina Castaneda MD PhD Active NOVOLOG 100 UNIT/ML SOLN 40 units with every meal INSULIN ASPART 73967341015 No Longer Active Alina Castaneda MD PhD Active VERAPAMIL HCL CR 120 MG TAB CR 1 qPM VERAPAMIL HCL 63947945622 No Longer Active Salina ROJAS Active ZYPREXA 15 MG TABS Take 1 tablet by mouth daily OLANZAPINE 31908923890 No Longer Active Marvel MARROQUIN Active LISINOPRIL 20 MG TABS 1 BID LISINOPRIL 61643587706 Active Alina Castaneda MD PhD Active ALBUTEROL SULFATE (2.5 MG/3ML) 0.083% NEBU 1 neb tid and prn cough ALBUTEROL SULFATE 49562298994 No Longer Active Alina Castaneda MD PhD Active TRAVATAN Z 0.004 % SOLN 1 gtt each eye daily TRAVOPROST 09651991097 Active CRYSTAL Suarez Active LANTUS 100 UNIT/ML SOLN 60 units sq q hs INSULIN GLARGINE 80330697068 No Longer Active CRYSTAL Suarez Active ALBUTEROL SULFATE (2.5 MG/3ML) 0.083% NEBU 1 neb tid and prn cough ALBUTEROL SULFATE (2.5 MG/3ML) 0.083% NEBU 599485 ALBUTEROL SULFATE Inactive ZYPREXA 15 MG TABS Take 1 tablet by mouth daily ZYPREXA 15 MG TABS 500808 OLANZAPINE Inactive VERAPAMIL HCL CR 120 MG TAB CR 1 qPM VERAPAMIL HCL CR 120 MG TAB CR VERAPAMIL HCL Inactive ZYPREXA 10 MG TABS Take one by mouth daily ZYPREXA 10 MG TABS 098076 OLANZAPINE Inactive TOPROL XL 100 MG XR81A-WCF 1 @ HS TOPROL XL 100 MG XC84M-IWU METOPROLOL SUCCINATE Inactive LEVEMIR 100 UNIT/ML SOLN 90 units SQ qHS LEVEMIR 100 UNIT/ML SOLN INSULIN DETEMIR Inactive PROMETHAZINE-CODEINE 6.25-10 MG/5ML SYRP 1 tsp po q 6 hours prn cough PROMETHAZINE-CODEINE 6.25-10 MG/5ML SYRP 737188 PROMETHAZINE- CODEINE Inactive GUAIFENESIN 600 MG XN43U-TJA 1 tablet by mouth twice daily if needed for cough GUAIFENESIN 600 MG CV93V-BWF GUAIFENESIN Inactive ALBUTEROL SULFATE 0.083 % NEBU SOLN one vial per nebulizer TID and PRN cough/ soa ALBUTEROL SULFATE 0.083 % NEBU SOLN 870299 ALBUTEROL SULFATE Inactive ZYPREXA 5 MG TABS take one tablet by mouth every evening ZYPREXA 5 MG TABS 165303 OLANZAPINE Inactive HYDROCODONE-ACETAMINOPHEN 5-325 MG TABS take one tablet by mouth every four hours as needed for pain HYDROCODONE-ACETAMINOPHEN 5-325 MG TABS 635463 HYDROCODONE-ACETAMINOPHEN Inactive BACTROBAN 2 % CREAM apply to ear and nose twice daily BACTROBAN 2 % CREAM 620193 MUPIROCIN CALCIUM Inactive CYCLOBENZAPRINE HCL 10 MG TABS 1/2 tablet by mouth every 8 hours as needed for muscle spasms CYCLOBENZAPRINE HCL 10 MG TABS 638408 CYCLOBENZAPRINE HCL Inactive NAVANE 10 MG CAPS 1/2 tablet twice a day NAVANE 10 MG CAPS THIOTHIXENE Inactive DOXEPIN HCL 10 MG CAPS Take 1 tablet by mouth daily DOXEPIN HCL 10 MG CAPS 9485293 DOXEPIN HCL Inactive HYDROCODONE-ACETAMINOPHEN 7.5-325 MG TABS 1 four times a day as needed for pain HYDROCODONE-ACETAMINOPHEN 7.5-325 MG TABS 014435 HYDROCODONE-ACETAMINOPHEN Inactive NIACIN CR 500 MG CR-TABS 2 qHS NIACIN CR 500 MG CR- TABS NIACIN Inactive ORPHENADRINE CITRATE ER 100 MG [id number]-AAK 1 every 12 hr. as needed ORPHENADRINE CITRATE ER 100 MG [id number]-JFJ ORPHENADRINE CITRATE Inactive ACETAMINOPHEN 500 MG TABS 2 Q 6 hr. PRN ACETAMINOPHEN 500 MG TABS 075746 ACETAMINOPHEN Inactive SAPHRIS 5 MG SUBL by mouth twice a day SAPHRIS 5 MG SUBL ASENAPINE MALEATE Inactive NIACIN ER 500 MG CR-TABS 4 qHS (for triglycerides) NIACIN ER 500 MG CR-TABS NIACIN Inactive IBUPROFEN 200 MG TABS 1 Q 6 hr. PRN IBUPROFEN 200 MG TABS 677740 IBUPROFEN Inactive FLUTICASONE PROPIONATE 50 MCG/ACT SUSP 2 sprays each nostril qDay x 30 days FLUTICASONE PROPIONATE 50 MCG/ACT SUSP 805071 FLUTICASONE PROPIONATE Inactive EQL TRUETEST TEST STRP Test blood sugar TID EQL TRUETEST TEST STRP GLUCOSE BLOOD Inactive TERESE CONTOUR TEST STRP monitor blood sugars 3x/day TERESE CONTOUR TEST STRP GLUCOSE BLOOD Inactive DETROL LA 4 MG VO00R-NMQ Take 1 tablet by mouth daily DETROL LA 4 MG CA91Y-ITO TOLTERODINE TARTRATE Inactive ZYPREXA 7.5 MG TABS 1 at HS ZYPREXA 7.5 MG TABS 329505 OLANZAPINE Inactive THIOTHIXENE 5 MG CAPS by mouth twice a day THIOTHIXENE 5 MG CAPS 008574 THIOTHIXENE Inactive UROXATRAL 10 MG UV96U-WUQ Take 1 tablet by mouth daily UROXATRAL 10 MG SG28S-VMG ALFUZOSIN HCL Inactive ACYCLOVIR 400 MG ORAL TABS 1 pill three times daily x 5 days, for cold sore outbreak ACYCLOVIR 400 MG ORAL TABS 709414 ACYCLOVIR Inactive TRUETEST TEST STRP check sugars 4x/day TRUETEST TEST STRP GLUCOSE BLOOD Inactive HUMALOG 100 UNIT/ML SOLN Take 20 units with breakfast, 10u with lunch and suppetr. HUMALOG 100 UNIT/ML SOLN INSULIN LISPRO ( HUMAN) Inactive CYCLOBENZAPRINE HCL 10 MG TABS 1 tablet by mouth three times daily, scheduled CYCLOBENZAPRINE HCL 10 MG TABS 721466 CYCLOBENZAPRINE HCL Inactive ACCU-CHEK ROSA INVITR STRP use strips with device to check blood sugars 3 times daily ACCU-CHEK ROSA INVITR STRP GLUCOSE BLOOD Inactive ACCU-CHEK ROSA UZMA Use device to check blood sugars ACCU-CHEK ROSA UZMA BLOOD GLUCOSE MONITORING SUPPL Inactive FLUVOXAMINE MALEATE 100 MG ORAL TABS Take 1/2 tab at noon FLUVOXAMINE MALEATE 100 MG ORAL TABS 846856 FLUVOXAMINE MALEATE Inactive FLUVOXAMINE MALEATE 100 MG TABS Take one (1) tablet by mouth am, 1/2 at noon FLUVOXAMINE MALEATE 100 MG TABS 076048 FLUVOXAMINE MALEATE Inactive BACTROBAN 2 % CREAM Apply to affected area BID for up to 10 days BACTROBAN 2 % CREAM 392945 MUPIROCIN CALCIUM Inactive NOVOFINE 32G X 6 MM MISC use one four times per day NOVOFINE 32G X 6 MM MISC INSULIN PEN NEEDLE Inactive TRAZODONE HCL 100 MG ORAL TABS 1 tab by mouth for sleep TRAZODONE HCL 100 MG ORAL TABS 783978 TRAZODONE HCL Inactive LOVAZA 1 GM CAPS 4 daily (for triglycerides) LOVAZA 1 GM CAPS 167463 QJTRT-1-ALDE ETHYL ESTERS Inactive METFORMIN HCL ER 500 MG GY01N-ATC Take three tablets by mouth everyday METFORMIN HCL ER 500 MG EF10F-DQP METFORMIN HCL Inactive METOPROLOL SUCCINATE 100 MG HG11F-IGV 1 by mouth daily for blood pressure METOPROLOL SUCCINATE 100 MG YO81S-LOJ METOPROLOL SUCCINATE Inactive AMITIZA 24 MCG ORAL CAPS Take one capsule BID for constipation. AMITIZA 24 MCG ORAL CAPS LUBIPROSTONE Inactive TOLTERODINE TARTRATE 2 MG TABS 1 pill twice daily, for bladder TOLTERODINE TARTRATE 2 MG TABS 043688 TOLTERODINE TARTRATE Inactive CEFDINIR 300 MG CAPS by mouth twice a day CEFDINIR 300 MG CAPS 569197 CEFDINIR Inactive AZITHROMYCIN 500 MG SOLR 1 po q day AZITHROMYCIN 500 MG SOLR 77351518992 AZITHROMYCIN Inactive AMOXICILLIN 500 MG CAPS 2 po BID x 10 days AMOXICILLIN 500 MG CAPS 998109 AMOXICILLIN Inactive PENICILLIN V POTASSIUM 500 MG TABS 1 pill by mouth three times daily PENICILLIN V POTASSIUM 500 MG TABS 285708 PENICILLIN V POTASSIUM Inactive KEFLEX 500 MG CAP 1 po BID x 7 days KEFLEX 500 MG CAP 490049 CEPHALEXIN Inactive Immunizations Vaccine Administration Date Value [...] Fluvirin, Fluarix, Agriflu(>=18 yo)) Fluzone (>3 yrs.) [[id number]] Influenza, seasonal, injectable pneumococcal immunization administered Pneumovax [...] pressure, diastolic - 8462-4 71 mm[Hg] BP gacria blood pressure, systolic - 8480-6 109 mm[Hg] [...] MICROALBUMIN - Chemistry sodium, serum 137 mmol/L 522-978 6652/05/19 potassium, serum 5.2 mmol/L 3.5-5.2 chloride, serum [...] Panel - Chemistry sodium, serum 137 mmol/L 720-934 5236/10/12 potassium, serum 4.8 mmol/L 3.5-5.2 chloride, serum 102 mmol/L 98-107 carbon dioxide, venous blood 27.6 mmol/L 21.0-32.0 blood glucose 168 mg/dL 65-110 calcium, serum 9.0 mg/dL 8.5-10.1 urea nitrogen, blood 15 mg/dL 7-18 creatinine, serum 1.04 mg/dL 0.55-1.30 sodium, serum 138 mmol/L 975-335 1297/11/11 potassium, serum 4.7 mmol/L 3.5-5.2 chloride, serum [...] % 11.6-14.8 platelet count 252 10^3/MM^3 10*3/mm3 305-853 3134/10/12 leukocyte count, blood 5.8 10^3/MM^3 10*3/mm3 4.6-10.2 [...] 240 10^3/MM^3 10*3/mm3 142-424 Lab Report: Chlamydia/GC APTIMA/42558, HIV-1/2 Agn/Dominga/30919, RPR (DX) W ... - Chemistry hepatitis B surface antigen NON-REACTIVE NON-REACTIVE Lab Report: Chlamydia/GC APTIMA/81086, HIV-1/2 Agn/Dominga/85319, RPR (DX) W ... - Lab chlamydia DNA probe NOT DETECTED NOT DETECTED Lab Report: Chlamydia/GC APTIMA/35484, HIV-1/2 Agn/Dominga/85942, RPR (DX) W ... - Microbiology Neisseria gonorrhoeae DNA probe NOT DETECTED NOT DETECTED Lab Report: Chlamydia/GC APTIMA/02766, HIV-1/2 Agn/Dominga/22564, RPR (DX) W ... - Serology rapid plasma reagin antibody titer NON-REACTIVE NON-REACTIVE Lab Report: HGBA1C - Chemistry hemoglobin A1C, blood, as % of total hemoglobin 6.1 % 4.3-6.0 hemoglobin A1C, blood, as % of total hemoglobin 6.3 % 4.3-6.0 Lab Report: Lipid Panel, HEPATIC PANEL, MICROALBUMIN, CBC - Chemistry cholesterol, serum 131 mg/dL 362-318 5044/06/03 aspartate aminotransferase (SGOT), serum 52 U/L 15-37 [...] Acid - Chemistry cholesterol, serum 142 mg/dL 731-690 3036/06/26 triglyceride, serum, fasting 272 mg/dL 30-200 HDL [...] negative Encounters Code Encounter Date Provider Facility CPT-26691 Level 3 Est. Patient 14:39:00 WAREHOUSE SELECTOR Vanessa Hickey MD [facility] CPT-06332 Level 2 Est. Patient 18:43:34 CDT Mima Erazo [facility] CPT-79392 Level 3 Est. Patient 16:22:09 CDT Cherelle Avila [facility] CPT-94625 Level 4 Est. Patient 17:55:14 CDT Mima Erazo [facility] CPT-38932 Level 2 Est. Patient 17:13:21 CDT Alina Castaneda MD PhD [facility] CPT-60650 Level 3 Est. Patient 14:46:15 CDT Vanessa Hickey MD [facility]-34323 Level 3 Est. Patient 09:34:56 CDT Alina Castaneda MD PhD 25831 Level 3 Est. Patient 21:40:19 CDT Mima Erazo [facility] CPT-55756 Level 3 Est. Patient 09:26:40 [facility] Patient 12:36:43 CDT Vanessa Hickey MD [facility]-63998 Level 3 Est. Patient 12:57:49 CDT Vanessa Hickey MD [facility]-09387 Level 3 Est. Patient 00:28:25 CDT Alina Castaneda MD [facility]-22249 Level 2 Est. Patient 12:52:14 CDT Alina Castaneda MD [facility]-41156 Level 3 Est. Patient 11:51:18 WAREHOUSE SELECTOR Alina Castaneda MD [facility]-82480 Level 3 Est. Patient 10:09:22 WAREHOUSE SELECTOR Alina Castaneda MD [facility]-80421 Level 3 Est. Patient 14:36:26 [facility]-44386 Level 3 Est. Patient 13:34:47 WAREHOUSE SELECTOR Alina Castaneda MD [facility]-92979 Level 3 Est. Patient 19:52:08 WAREHOUSE SELECTOR Alina Castaneda MD [facility]57937 Level 3 Est. Patient 10:01:51 WAREHOUSE SELECTOR Marvel [facility]-50390 Level 3 Est. Patient 21:54:06 CDT Vanessa Hickey MD [facility]-68958 Level 3 Est. Patient 08:54:46 CDT Alina Castaneda MD [facility]-52059 Level 3 Est. Patient 09:32:11 CDT Marvel [facility]-46508 Level 3 Est. Patient 12:02:49 CDT Alina Castaneda MD [facility]31927 Level 3 Est. Patient 19:17:33 CDT Alina Castaneda MD [facility]-08417 Level 3 Est. Patient 13:19:10 CDT Marvel [facility]-35961 Level 3 Est. Patient 08:20:05 CDT Alina Castaneda MD [facility]16785 Level 3 Est. Patient 15:17:18 CDT Alina Castaneda MD [facility]-99613 Level 3 Est. Patient 14:25:36 WAREHOUSE SELECTOR Marvel Charles [facility]-09919 Level 3 Est. Patient 10:09:15 WAREHOUSE SELECTOR Marvel [facility]-03992 Level 3 Est. Patient 21:28:43 CDT Alina Castaneda MD [facility]-94456 Level 3 Est. Patient 15:20:11 [facility] Est[facility] Patient 19:08:12 CDT Alina Castaneda MD [facility]-42020 Level 3 Est. Patient 15:06:39 CDT Marvel [facility]-45562 Level 4 Est. Patient 17:48:15 CDT Alina Castaneda MD [facility]-15420 Level 3 Est. Patient 14:53:49 CDT Alina Castaneda MD [facility]-27865 Level 3 Est. Patient 09:35:16 CDT Alina Castaneda MD [facility]34831 Level 3 Est. Patient 12:23:22 CDT Alina Castaneda MD [facility]-24411 Level 3 Est. Patient 16:19:15 CDT Alina Castaneda MD [facility]-63277 Level 3 Est. Patient 21:39:56 WAREHOUSE SELECTOR Alina Castaneda MD [facility]-27102 Level 4 Est. Patient 14:12:56 WAREHOUSE SELECTOR Alina Castaneda MD [facility]05024 Level 2 Est. Patient 15:34:57 WAREHOUSE SELECTOR Alina Castaneda MD [facility]38549 Level 3 Est. Patient 12:17:04 WAREHOUSE SELECTOR Alina Castaneda MD [facility]89040 Level 3 Est. Patient 09:18:18 WAREHOUSE SELECTOR Marvel [facility]-75448 Level 2 Est. Patient 21:50:24 CDT Alina Castaneda MD [facility]82761 Level 3 Est. Patient 09:17:28 CDT Marvel [facility]-53148 Level 4 Est. Patient 18:54:02 CDT Alina Castaneda MD [id number] Level 3 Est. Patient 10:47:10 CDT Alina Castaneda MD [facility]-02632 Level 3 Est. Patient 09:22:20 CDT Marvel [facility] [place]-68614 Level 3 Est. Patient 16:39:43 CDT Marvel [facility] [place]-80780 Level 3 Est. Patient 16:05:16 CDT Alina Castaneda MD [facility]52395 Level 3 Est. Patient 00:29:15 CDT Alina Castaneda MD [facility]43357 Level 3 Est. Patient 10:49:22 [employer] [facility] [place], [place] CPT-36530 Level 3 Est. Patient 21:30:19 [employer] Alina Castaneda MD [facility] CPT-23132 Level 4 Est. Patient 17:04:11 [employer] [facility] [place] [place] CPT-87020 Level 3 Est. Patient 15:34:11 [employer] [facility] [place] [place] CPT-41152 Level 2 Est. Patient 12:51:58 [employer] Alina Castaneda MD [facility] CPT-54207 Level 3 Est. Patient 13:20:01 [employer] Alina Castaneda MD [facility] CPT-58001 Level 3 Est. Patient 09:23:35 CDT Alina Castaneda MD [facility] Procedures Code Procedure Name Date Entry Date Standard Description [facility]-00815 Bladder Scan 14:39:01 [employer] CPT-TCMM Transitional Care Mgmt-Moderate 10:30:19 [employer] CPT-30506 Bladder Scan 12:36:44 CDT CPT-34537 Bladder Scan 21:54:06 CDT CPT-G0008 Administration of Influenza Virus Vaccine 13:05:26 CDT CPT-65818 Fluzone Quadrivalent Intramuscular Suspension 0.5 ML 13: 05:26 CDT CPT-55176 Administration single or combination vaccine inc oral 11 :49:51 CDT CPT-54046 Pneumovax 11:49:51 CDT CPT-82452 Ribs unilateral 2V 12:37:22 [employer] CPT-50239 Chest 2V Frontal and Lat 17:15:26 CDT CPT-63036 Abx/Therapy Injection 18:54:02 CDT CPT-J0696 Rocephin 1000 mg (Ceftriaxone) 16:00:32 CDT CPT-66817 Chest 2V Frontal and Lat 15:26:45 CDT CPT-22037 Chest 2V Frontal and Lat 10:23:27 CDT CPT-55523 Venipuncture Draw Fee 10:11:00 CDT CPT-06266 Administration single or combination vaccine inc oral 11 :56:38 CDT CPT-40841 Influenza split virus > age 3 11:56:38 CDT CPT-74870 Venipuncture Draw Fee 08:49:54 [employer] CPT-66359 EKG Trac and Interp 17:54:19 [employer]
--- OUTSIDE RECORDS SUMMARY | 2018-07-02 16:20 | XMS REPORT | Clinical Summary ---
Author Author Admin, TERELL Organization [facility] Address Unknown Phone Unavailable Allergies, Adverse Reactions, 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 Erazo [employer] TECHNICAL OFFICER Benign paroxysmal positional vertigo Vertigo, benign paroxysmal position 386.11 Inactive Mima Erazo [employer] TECHNICAL OFFICER Benign paroxysmal positional vertigo High-risk sexual behavior V69.2 Active Alina Castaneda MD PhD High-risk sexual behavior Erectile dysfunction 302.72 Active Alina Castaneda MD PhD Psychosexual dysfunction with inhibited sexual excitement Constipation 564.00 Active Alina Castaneda MD PhD Constipation, unspecified Skin lesion 709.9 Active Alina Castaneda MD PhD Unspecified disorder of skin and subcutaneous tissue Malaise and fatigue 780.79 Active Cherelle Speaks W[employer] RESOURCES TECHNICAL OFFICER Other malaise and fatigue Diarrhea 787.91 Active Cherelle Speaks W[employer] RESOURCES TECHNICAL OFFICER Diarrhea PHARYNGITIS 462 Active Cherelle Speaks WATER RESOURCES TECHNICAL OFFICER Acute pharyngitis Colitis 558.9 Active Mima Erazo [employer] RESOURCES TECHNICAL OFFICER Other and unspecified noninfectious gastroenteritis and colitis WOUND, OPEN, NOSE ICD-873.20 Inactive Alina Castaneda MD PhD DIABETES, TYPE 2 ICD-250.00 Inactive Alina Castaneda MD PhD HYPERTENSION ICD-401.9 Inactive Alina Castaneda MD PhD URI ICD-465.9 Inactive Alina Castaneda MD PhD CHEST PAIN ICD-786.50 Inactive Alina Castaneda MD PhD FH STROKE ICD-V17.1 Inactive Marvel Charles LIBRARY HISTORIAN FATIGUE ICD-780.79 Inactive Alina Castandea MD PhD DIABETES MELLITUS, TYPE II, UNCONTROLLED [...] MISC 4 a day INSULIN PEN NEEDLE 35622449250 Active Marvel MARROQUIN Active AMITIZA 24 MCG ORAL CAPS Take one capsule BID for constipation LUBIPROSTONE 11044690866 Active Mima Erazo [employer]OURCES TECHNICAL OFFICER Active LEVEMIR FLEXTOUCH 100 UNIT/ML SC SOPN 75 units SQ each evening, for diabetes INSULIN DETEMIR 87176815331 Active Salina ROJAS Active TRUEPLUS LANCETS 30G MISC 3 a day LANCETS 19096919379 Active Marvel MENDOZAP Active TOLTERODINE TARTRATE 2 MG TABS 1 pill twice daily, for bladder TOLTERODINE TARTRATE 26846578733 No Longer Active Vanessa Hickey MD Active AMITIZA 24 MCG ORAL CAPS Take one capsule BID for constipation. LUBIPROSTONE 85635577873 No Longer Active Vanessa Hickey MD Active LOMOTIL 2.5-0.025 MG ORAL TABS take 1-2 tabs PO after each stool, no more than 8 in 24 hours DIPHENOXYLATE-ATROPINE 19918361787 Active Grace Azam RMA Active FLUVOXAMINE MALEATE 100 MG ORAL TABS take one tab every AM et HS, and take 1/ 2 tab at noon FLUVOXAMINE MALEATE 34465737585 Active Grace Azam RMA Active METOPROLOL SUCCINATE 100 MG [id number]-IMM 1 by mouth daily for blood pressure METOPROLOL SUCCINATE 79836801551 No Longer Active Grace Azam RMA Active METFORMIN HCL ER 500 MG [id number] Take three tablets by mouth everyday METFORMIN HCL 29423617286 No Longer Active Grace Azam RMA Active LOVAZA 1 GM CAPS 4 daily (for triglycerides) OMEGA-3- ACID ETHYL ESTERS 47043614740 No Longer Active Grace Azam RMA Active TRAZODONE HCL 100 MG ORAL TABS 1 tab by mouth for sleep TRAZODONE HCL 49193450444 No Longer Active Grace Azam RMA Active NOVOFINE 32G X 6 MM MISC use one four times per day INSULIN PEN NEEDLE 91251925167 No Longer Active Grace Azam RMA Active BACTROBAN 2 % CREAM Apply to affected area BID for up to 10 days MUPIROCIN CALCIUM 89970834642 No Longer Active Grace Azam RMA Active ZOFRAN 4 MG TABS 1 po q4hr PRN Nausea ONDANSETRON HCL 36595228783 Active Salina Han RMA Active KEFLEX 500 MG CAP 1 po BID x 7 days CEPHALEXIN 33117232547 No Longer Active Cherelle Avila APRN Active FLUVOXAMINE MALEATE 100 MG TABS Take one (1) tablet by mouth am, 1/2 at noon FLUVOXAMINE MALEATE 19271148864 No Longer Active Mima Erazo APRN Active CORICIDIN HBP CONGESTION/COUGH 10-200 MG ORAL CAPS Take as directed on box as needed for cold/flu symptoms DEXTROMETHORPHAN-GUAIFENESIN 00925312813 Active Cherelle Avila W[employer] RESOURCES TECHNICAL OFFICER Active OMEGA-3 300 MG ORAL CAPS 4 caps by mouth daily OMEGA-3 FATTY ACIDS 07840235194 Active Cherelle Speaks WATER RESOURCES TECHNICAL OFFICER Active FLUVOXAMINE MALEATE 100 MG ORAL TABS Take 1/2 tab at noon FLUVOXAMINE MALEATE 28858395929 No Longer Active Cherelle Speaks WATER RESOURCES TECHNICAL OFFICER Active [facility] LUBRICANT EYE DROPS 0.4-0.3 % OPHTH SOLN POLYETHYL GLYCOL-PROPYL GLYCOL 65629907963 Active Mima Fierroum W[employer] RESOURCES TECHNICAL OFFICER Active CLONAZEPAM 1 MG TABS 1/2 pill by mouth three times daily CLONAZEPAM 45426394276 Active Alina Castaneda MD PhD Active MIRALAX POWD 17g by mouth daily, for constipation POLYETHYLENE GLYCOL 3350 28723514969 Active Alina Castaneda MD PhD Active HYDROCODONE-ACETAMINOPHEN 5-325 MG TABS 2 tabs by mouth three times daily for pain HYDROCODONE-ACETAMINOPHEN 92100115483 Active Mima Erazo [employer] RESOURCES TECHNICAL OFFICER Active HUMALOG KWIKPEN 100 UNIT/ML SC SOPN 20 units with breakfast, 10 units with lunch, 10 units with dinner, for diabetes INSULIN LISPRO (HUMAN ) 82960925383 Active Alina Castaneda MD PhD Active LATUDA 120 MG ORAL TABS 1 pill by mouth nightly LURASIDONE HCL 97777423319 Active Alina Castaneda MD PhD Active COLACE 100 MG CAPS 1 pill by mouth twice daily, for constipation DOCUSATE SODIUM 74580826027 Active Alina Castaneda MD PhD Active TRUETEST TEST STRP check blood sugars 3x/day GLUCOSE BLOOD 47103938484 Active Marvel Thurstonari LIBRARY HISTORIAN Active ACCU-CHEK ROSA UZMA Use device to check blood sugars BLOOD GLUCOSE MONITORING SUPPL 64752039710 No Longer Active Marvel Mackenzieglari LIBRARY HISTORIAN Active ACCU-CHEK ROSA INVITR STRP use strips with device to check blood sugars 3 times daily GLUCOSE BLOOD 45072170488 No Longer Active Marvel MENDOZAP Active VERAPAMIL HCL ER 180 MG ORAL CR-TABS 1 pill by mouth twice daily, for migraine prevention VERAPAMIL HCL 53962550413 Active Alina Castaneda MD PhD Active CYCLOBENZAPRINE HCL 10 MG TABS 1 tablet by mouth three times daily, scheduled CYCLOBENZAPRINE HCL 60871820991 No Longer Active Alina Castaneda MD PhD Active HUMALOG 100 UNIT/ML SOLN Take 20 units with breakfast, 10u with lunch and suppetr. INSULIN LISPRO (HUMAN) 26057435371 No Longer Active Ailna Castaneda MD PhD Active TRUETEST TEST STRP check sugars 4x/day GLUCOSE BLOOD 24014612157 No Longer Active Alina Castaneda MD PhD Active MORPHINE SULFATE 30 MG TABS 1 pill by mouth twice daily, for pain MORPHINE SULFATE 87114230720 Active Mima Erazo [employer] RESOURCES TECHNICAL OFFICER Active ACYCLOVIR 400 MG ORAL TABS 1 pill three times daily x 5 days, for cold sore outbreak ACYCLOVIR 39534078437 No Longer Active Alina Castaneda MD PhD Active PENICILLIN V POTASSIUM 500 MG TABS 1 pill by mouth three times daily PENICILLIN V POTASSIUM 22883552364 No Longer Active Alina Castaneda MD PhD Active UROXATRAL 10 MG [id number] Take 1 tablet by mouth daily ALFUZOSIN HCL 26221516897 No Longer Active Alina Castaneda MD PhD Active THIOTHIXENE 5 MG CAPS by mouth twice a day THIOTHIXENE 37769483376 No Longer Active Alina Castaneda MD PhD Active ZYPREXA 7.5 MG TABS 1 at HS OLANZAPINE 49612015746 No Longer Active Alina Castaneda MD PhD Active BD INSULIN SYRINGE 28G X 1/2" 1 ML MISC 1 four times per day INSULIN SYRINGE-NEEDLE U-100 03465293596 Active Marvel Charles LIBRARY HISTORIAN Active DETROL LA 4 MG [id number]-ZOM Take 1 tablet by mouth daily TOLTERODINE TARTRATE 83473865101 No Longer Active Alina aCstaneda MD PhD Active TERESE CONTOUR TEST STRP monitor blood sugars 3x/day GLUCOSE BLOOD 83832505580 No Longer Active Alina Castaneda MD PhD Active EQL TRUETEST TEST STRP Test blood sugar TID GLUCOSE BLOOD 70259621731 No Longer Active Alina Castaneda MD PhD Active FLUTICASONE PROPIONATE 50 MCG/ACT SUSP 2 sprays each nostril qDay x 30 days FLUTICASONE PROPIONATE 62381369261 No Longer Active Alina Castaneda MD PhD Active IBUPROFEN 200 MG TABS 1 Q 6 hr. PRN IBUPROFEN 96076926595 No Longer Active Alina Castaneda MD PhD Active NIACIN ER 500 MG CR-TABS 4 qHS (for triglycerides) NIACIN 94344830672 No Longer Active Alina Castaneda MD PhD Active ALFUZOSIN HCL ER 10 MG [id number]-RXT 1 tablet daily ALFUZOSIN HCL 08508571949 Active Vanessa Hickey MD Active SAPHRIS 5 MG SUBL by mouth twice a day ASENAPINE MALEATE 99093449222 No Longer Active Maliheh Ziglari LIBRARY HISTORIAN Active ACETAMINOPHEN 500 MG TABS 2 Q 6 hr. PRN ACETAMINOPHEN 07041759009 No Longer Active Maliheh Ziglari LIBRARY HISTORIAN Active ORPHENADRINE CITRATE ER 100 MG [id number] 1 every 12 hr. as needed ORPHENADRINE CITRATE 59778321168 No Longer Active Alina Castaneda MD PhD Active NIACIN CR 500 MG CR-TABS 2 qHS NIACIN 12249853630 No Longer Active Alina Castaneda MD PhD Active AMOXICILLIN 500 MG CAPS 2 po BID x 10 days AMOXICILLIN 67392565809 No Longer Active Alina Castaneda MD PhD Active HYDROCODONE-ACETAMINOPHEN 7.5-325 MG TABS 1 four times a day as needed for pain HYDROCODONE-ACETAMINOPHEN 83136465317 No Longer Active Alina Castaneda MD PhD Active DOXEPIN HCL 10 MG CAPS Take 1 tablet by mouth daily DOXEPIN HCL 85027003696 No Longer Active Salina Han A Active NAVANE 10 MG CAPS 1/2 tablet twice a day THIOTHIXENE No Longer Active Salina Han A Active CYCLOBENZAPRINE HCL 10 MG TABS 1/2 tablet by mouth every 8 hours as needed for muscle spasms CYCLOBENZAPRINE HCL 70840426548 No Longer Active Alina Castaneda MD PhD Active BACTROBAN 2 % CREAM apply to ear and nose twice daily MUPIROCIN CALCIUM 69386147579 No Longer Active Alina Castaneda MD PhD Active HYDROCODONE-ACETAMINOPHEN 5-325 MG TABS take one tablet by mouth every four hours as needed for pain HYDROCODONE-ACETAMINOPHEN 76254182491 No Longer Active Alina Castaneda MD PhD Active ZOLPIDEM TARTRATE 10 MG TABS take at bedtime ZOLPIDEM TARTRATE 17034911457 Active Alina Castaneda MD PhD Active ZYPREXA 5 MG TABS take one tablet by mouth every evening OLANZAPINE 39110681788 No Longer Active Alina Castaneda MD PhD Active ALBUTEROL SULFATE 0.083 % NEBU SOLN one vial per nebulizer TID and PRN cough/ soa ALBUTEROL SULFATE 39421001129 No Longer Active Alina Castaneda MD PhD Active GUAIFENESIN 600 MG [id number]-UDP 1 tablet by mouth twice daily if needed for cough GUAIFENESIN 31799213265 No Longer Active aMrvel Charles LIBRARY HISTORIAN Active AZITHROMYCIN 500 MG SOLR 1 po q day AZITHROMYCIN 50047553634 No Longer Active Alina Castaneda MD PhD Active PROMETHAZINE-CODEINE 6.25-10 MG/5ML SYRP 1 tsp po q 6 hours prn cough PROMETHAZINE-CODEINE 63710010891 No Longer Active Alina Castaneda MD PhD Active CEFDINIR 300 MG CAPS by mouth twice a day CEFDINIR 81912784458 No Longer Active Alina Castaneda MD PhD Active METFORMIN HCL 500 MG BF98N-DOR Take 3 tablets by mouth everyday METFORMIN HCL 73171967300 No Longer Active Alina Castaneda MD PhD Active LEVEMIR 100 UNIT/ML SOLN 90 units SQ qHS INSULIN DETEMIR 93233509641 No Longer Active Marvel MARROQUIN Active TOPROL XL 100 MG KU40Y-JST 1 @ HS METOPROLOL SUCCINATE 62260652104 No Longer Active Marvel MARROQUIN Active ALLOPURINOL 300 MG TABS Take one by mouth daily ALLOPURINOL 88505619397 Active Alina Castaneda MD PhD Active ZYPREXA 10 MG TABS Take one by mouth daily OLANZAPINE 97031324742 No Longer Active Alina Castaneda MD PhD Active NOVOLOG 100 UNIT/ML SOLN 40 units with every meal INSULIN ASPART 30841942952 No Longer Active Alina Castaneda MD PhD Active VERAPAMIL HCL CR 120 MG TAB CR 1 qPM VERAPAMIL HCL 00576455452 No Longer Active Salina Ervinamelia ROJAS Active ZYPREXA 15 MG TABS Take 1 tablet by mouth daily OLANZAPINE 47476731384 No Longer Active Marvel MARROQUIN Active LISINOPRIL 20 MG TABS 1 BID LISINOPRIL 94102352992 Active Alina Castaneda MD PhD Active ALBUTEROL SULFATE (2.5 MG/3ML) 0.083% NEBU 1 neb tid and prn cough ALBUTEROL SULFATE 13165271976 No Longer Active Alina Castaneda MD PhD Active TRAVATAN Z 0.004 % SOLN 1 gtt each eye daily TRAVOPROST 77101565037 Active CRYSTAL Suarez Active LANTUS 100 UNIT/ML SOLN 60 units sq q hs INSULIN GLARGINE 74492806822 No Longer Active CRYSTAL Suarez Active ALBUTEROL SULFATE (2.5 MG/3ML) 0.083% NEBU 1 neb tid and prn cough ALBUTEROL SULFATE (2.5 MG/3ML) 0.083% NEBU 565883 ALBUTEROL SULFATE Inactive ZYPREXA 15 MG TABS Take 1 tablet by mouth daily ZYPREXA 15 MG TABS 036572 OLANZAPINE Inactive VERAPAMIL HCL CR 120 MG TAB CR 1 qPM VERAPAMIL HCL CR 120 MG TAB CR VERAPAMIL HCL Inactive ZYPREXA 10 MG TABS Take one by mouth daily ZYPREXA 10 MG TABS 460582 OLANZAPINE Inactive TOPROL XL 100 MG [id number]-JVY 1 @ HS TOPROL XL 100 MG [id number]-MXS METOPROLOL SUCCINATE Inactive LEVEMIR 100 UNIT/ML SOLN 90 units SQ qHS LEVEMIR 100 UNIT/ML SOLN INSULIN DETEMIR Inactive PROMETHAZINE-CODEINE 6.25-10 MG/5ML SYRP 1 tsp po q 6 hours prn cough PROMETHAZINE-CODEINE 6.25-10 MG/5ML SYRP 439483 PROMETHAZINE- CODEINE Inactive GUAIFENESIN 600 MG RR06Z-NGM 1 tablet by mouth twice daily if needed for cough GUAIFENESIN 600 MG HR95B-VAW GUAIFENESIN Inactive ALBUTEROL SULFATE 0.083 % NEBU SOLN one vial per nebulizer TID and PRN cough/ soa ALBUTEROL SULFATE 0.083 % NEBU SOLN 697479 ALBUTEROL SULFATE Inactive ZYPREXA 5 MG TABS take one tablet by mouth every evening ZYPREXA 5 MG TABS 438829 OLANZAPINE Inactive HYDROCODONE-ACETAMINOPHEN 5-325 MG TABS take one tablet by mouth every four hours as needed for pain HYDROCODONE-ACETAMINOPHEN 5-325 MG TABS 568237 HYDROCODONE-ACETAMINOPHEN Inactive BACTROBAN 2 % CREAM apply to ear and nose twice daily BACTROBAN 2 % CREAM 655150 MUPIROCIN CALCIUM Inactive CYCLOBENZAPRINE HCL 10 MG TABS 1/2 tablet by mouth every 8 hours as needed for muscle spasms CYCLOBENZAPRINE HCL 10 MG TABS 754654 CYCLOBENZAPRINE HCL Inactive NAVANE 10 MG CAPS 1/2 tablet twice a day NAVANE 10 MG CAPS THIOTHIXENE Inactive DOXEPIN HCL 10 MG CAPS Take 1 tablet by mouth daily DOXEPIN HCL 10 MG CAPS 0434829 DOXEPIN HCL Inactive HYDROCODONE-ACETAMINOPHEN 7.5-325 MG TABS 1 four times a day as needed for pain HYDROCODONE-ACETAMINOPHEN 7.5-325 MG TABS 602624 HYDROCODONE-ACETAMINOPHEN Inactive NIACIN CR 500 MG CR-TABS 2 qHS NIACIN CR 500 MG CR- TABS NIACIN Inactive ORPHENADRINE CITRATE ER 100 MG LR99O-PPJ 1 every 12 hr. as needed ORPHENADRINE CITRATE ER 100 MG [id number] ORPHENADRINE CITRATE Inactive ACETAMINOPHEN 500 MG TABS 2 Q 6 hr. PRN ACETAMINOPHEN 500 MG TABS 403687 ACETAMINOPHEN Inactive SAPHRIS 5 MG SUBL by mouth twice a day SAPHRIS 5 MG SUBL ASENAPINE MALEATE Inactive NIACIN ER 500 MG CR-TABS 4 qHS (for triglycerides) NIACIN ER 500 MG CR-TABS NIACIN Inactive IBUPROFEN 200 MG TABS 1 Q 6 hr. PRN IBUPROFEN 200 MG TABS 215504 IBUPROFEN Inactive FLUTICASONE PROPIONATE 50 MCG/ACT SUSP 2 sprays each nostril qDay x 30 days FLUTICASONE PROPIONATE 50 MCG/ACT SUSP 259339 FLUTICASONE PROPIONATE Inactive EQL TRUETEST TEST STRP Test blood sugar TID EQL TRUETEST TEST STRP GLUCOSE BLOOD Inactive TERESE CONTOUR TEST STRP monitor blood sugars 3x/day TERESE CONTOUR TEST STRP GLUCOSE BLOOD Inactive DETROL LA 4 MG [id number] Take 1 tablet by mouth daily DETROL LA 4 MG PA89Z-NZZ TOLTERODINE TARTRATE Inactive ZYPREXA 7.5 MG TABS 1 at HS ZYPREXA 7.5 MG TABS 124492 OLANZAPINE Inactive THIOTHIXENE 5 MG CAPS by mouth twice a day THIOTHIXENE 5 MG CAPS 066200 THIOTHIXENE Inactive UROXATRAL 10 MG IT61H-NPQ Take 1 tablet by mouth daily UROXATRAL 10 MG [id number]-[id number] ALFUZOSIN HCL Inactive ACYCLOVIR 400 MG ORAL TABS 1 pill three times daily x 5 days, for cold sore outbreak ACYCLOVIR 400 MG ORAL TABS 818019 ACYCLOVIR Inactive TRUETEST TEST STRP check sugars 4x/day TRUETEST TEST STRP GLUCOSE BLOOD Inactive HUMALOG 100 UNIT/ML SOLN Take 20 units with breakfast, 10u with lunch and suppetr. HUMALOG 100 UNIT/ML SOLN INSULIN LISPRO ( HUMAN) Inactive CYCLOBENZAPRINE HCL 10 MG TABS 1 tablet by mouth three times daily, scheduled CYCLOBENZAPRINE HCL 10 MG TABS 783494 CYCLOBENZAPRINE HCL Inactive ACCU-CHEK ROSA INVITR STRP use strips with device to check blood sugars 3 times daily ACCU-CHEK ROSA INVITR STRP GLUCOSE BLOOD Inactive ACCU-CHEK ROSA UZMA Use device to check blood sugars ACCU-CHEK ROSA UZMA BLOOD GLUCOSE MONITORING SUPPL Inactive FLUVOXAMINE MALEATE 100 MG ORAL TABS Take 1/2 tab at noon FLUVOXAMINE MALEATE 100 MG ORAL TABS 882980 FLUVOXAMINE MALEATE Inactive FLUVOXAMINE MALEATE 100 MG TABS Take one (1) tablet by mouth am, 1/2 at noon FLUVOXAMINE MALEATE 100 MG TABS 512287 FLUVOXAMINE MALEATE Inactive BACTROBAN 2 % CREAM Apply to affected area BID for up to 10 days BACTROBAN 2 % CREAM 972274 MUPIROCIN CALCIUM Inactive NOVOFINE 32G X 6 MM MISC use one four times per day NOVOFINE 32G X 6 MM MISC INSULIN PEN NEEDLE Inactive TRAZODONE HCL 100 MG ORAL TABS 1 tab by mouth for sleep TRAZODONE HCL 100 MG ORAL TABS 338704 TRAZODONE HCL Inactive LOVAZA 1 GM CAPS 4 daily (for triglycerides) LOVAZA 1 GM CAPS 381892 UPIQV-3-VCDM ETHYL ESTERS Inactive METFORMIN HCL ER 500 MG KY58Y-QCP Take three tablets by mouth everyday METFORMIN HCL ER 500 MG KZ25E-KFZ METFORMIN HCL Inactive METOPROLOL SUCCINATE 100 MG DE45L-QXU 1 by mouth daily for blood pressure METOPROLOL SUCCINATE 100 MG SL63Y-LEX METOPROLOL SUCCINATE Inactive AMITIZA 24 MCG ORAL CAPS Take one capsule BID for constipation. AMITIZA 24 MCG ORAL CAPS LUBIPROSTONE Inactive TOLTERODINE TARTRATE 2 MG TABS 1 pill twice daily, for bladder TOLTERODINE TARTRATE 2 MG TABS 425508 TOLTERODINE TARTRATE Inactive CEFDINIR 300 MG CAPS by mouth twice a day CEFDINIR 300 MG CAPS 522972 CEFDINIR Inactive AZITHROMYCIN 500 MG SOLR 1 po q day AZITHROMYCIN 500 MG SOLR 06733794798 AZITHROMYCIN Inactive AMOXICILLIN 500 MG CAPS 2 po BID x 10 days AMOXICILLIN 500 MG CAPS 796991 AMOXICILLIN Inactive PENICILLIN V POTASSIUM 500 MG TABS 1 pill by mouth three times daily PENICILLIN V POTASSIUM 500 MG TABS 165237 PENICILLIN V POTASSIUM Inactive KEFLEX 500 MG CAP 1 po BID x 7 days KEFLEX 500 MG CAP 894018 CEPHALEXIN Inactive Immunizations Vaccine Administration Date Value [...] Fluvirin, Fluarix, Agriflu(>=18 yo)) Fluzone (>3 yrs.) [[id number]] Influenza, seasonal, injectable pneumococcal immunization administered Pneumovax [...] pressure, diastolic - 8462-4 82 mm[Hg] BP garica blood pressure, systolic - 8480-6 137 mm[Hg] [...] E&M - 3141-9 235.4 [lb_av] Weight Measured Diagnostic Results Date Name Value Unit Range Description Lab Report: Basic Metabolic Panel, HGBA1C, MICROALBUMIN - Chemistry sodium, serum 137 mmol/L 365-188 7662/05/19 potassium, serum 5.2 mmol/L 3.5-5.2 chloride, serum [...] Panel - Chemistry sodium, serum 137 mmol/L 138-849 9493/10/12 potassium, serum 4.8 mmol/L 3.5-5.2 chloride, serum 102 mmol/L 98-107 carbon dioxide, venous blood 27.6 mmol/L 21.0-32.0 blood glucose 168 mg/dL 65-110 calcium, serum 9.0 mg/dL 8.5-10.1 urea nitrogen, blood 15 mg/dL 7-18 creatinine, serum 1.04 mg/dL 0.55-1.30 sodium, serum 138 mmol/L 651-627 3590/11/11 potassium, serum 4.7 mmol/L 3.5-5.2 chloride, serum [...] % 11.6-14.8 platelet count 252 10^3/MM^3 10*3/mm3 187-305 2613/10/12 leukocyte count, blood 5.8 10^3/MM^3 10*3/mm3 4.6-10.2 [...] 240 10^3/MM^3 10*3/mm3 142-424 Lab Report: Chlamydia/GC APTIMA/60437, HIV-1/2 Agn/Dominga/47253, RPR (DX) W ... - Chemistry hepatitis B surface antigen NON-REACTIVE NON-REACTIVE Lab Report: Chlamydia/GC APTIMA/86161, HIV-1/2 Agn/Dominga/13137, RPR (DX) W ... - Lab chlamydia DNA probe NOT DETECTED NOT DETECTED Lab Report: Chlamydia/GC APTIMA/10977, HIV-1/2 Agn/Dominga/31462, RPR (DX) W ... - Microbiology Neisseria gonorrhoeae DNA probe NOT DETECTED NOT DETECTED Lab Report: Chlamydia/GC APTIMA/88739, HIV-1/2 Agn/Dominga/43447, RPR (DX) W ... - Serology rapid plasma reagin antibody titer NON-REACTIVE NON-REACTIVE Lab Report: HGBA1C - Chemistry hemoglobin A1C, blood, as % of total hemoglobin 6.1 % 4.3-6.0 hemoglobin A1C, blood, as % of total hemoglobin 6.3 % 4.3-6.0 Lab Report: Lipid Panel, HEPATIC PANEL, MICROALBUMIN, CBC - Chemistry cholesterol, serum 131 mg/dL 935-129 4205/06/03 triglyceride, serum, fasting 383 mg/dL 30-200 HDL [...] 4.7 mg/dL 2.6-7.2 cholesterol, serum 142 mg/dL 176-779 3494/06/26 triglyceride, serum, fasting 272 mg/dL 30-200 HDL [...] negative Encounters Code Encounter Date Provider Facility CPT-07330 Level 3 Est. Patient 14:39:00 AD[employer] ARCHITECT Vanessa Hickey MD [facility] CPT-77929 Level 2 Est. Patient 18:43:34 CDT Mima Erazo [facility] CPT-11546 Level 3 Est. Patient 16:22:09 CDT Cherelle [place] [facility] CPT-48952 Level 4 Est. Patient 17:55:14 CDT Mima Erazo [facility] CPT-19224 Level 2 Est. Patient 17:13:21 CDT Alina Castaneda MD PhD [facility] CPT-74738 Level 3 Est. Patient 14:46:15 CDT Vanessa Hickey MD [facility]-57499 Level 3 Est. Patient 09:34:56 CDT Alina Castaneda MD PhD [facility]62242 Level 3 Est. Patient 21:40:19 CDT Mima Erazo [facility]-45588 Level 3 Est. Patient 09:26:40 CDT Marvel Charles [facility]-57858 Level 3 Est. Patient 12:36:43 CDT Vanessa Hickey MD [facility]-22031 Level 3 Est. Patient 12:57:49 CDT Vanessa Hickey MD [facility]-15633 Level 3 Est. Patient 00:28:25 CDT Alina Castaneda MD [facility]91762 Level 2 Est. Patient 12:52:14 CDT Alina Castaneda MD [facility]01448 Level 3 Est. Patient 11:51:18 ADV[employer]ED SOL[employer] ARCHITECT Alina Castaneda MD [facility]82699 Level 3 Est. Patient 10:09:22 ADVANCED SOLUTIONS ARCHITECT Alina Castaneda MD [facility]40816 Level 3 Est. Patient 14:36:26 ADVANCED SOLUTIONS ARCHITECT Marvel Charles [facility]03696 Level 3 Est. Patient 13:34:47 ADV[employer]ED SOLUTIONS ARCHITECT Alina Castaneda MD [facility]41885 Level 3 Est. Patient 19:52:08 ADVANCED SOLUTIONS ARCHITECT Alina Castaneda MD [facility]42112 Level 3 Est. Patient 10:01:51 ADVANCED SOLUTIONS ARCHITECT Marvel Charles [facility]33279 Level 3 Est. Patient 21:54:06 CDT Vanessa Hickey MD [facility]-34807 Level 3 Est. Patient 08:54:46 CDT Alina Castaneda MD [facility]24935 Level 3 Est. Patient 09:32:11 CDT Marvel Charles [facility]24017 Level 3 Est. Patient 12:02:49 CDT Alina Castaneda MD [facility]02638 Level 3 Est. Patient 19:17:33 CDT Alina Castaneda MD [facility]50296 Level 3 Est. Patient 13:19:10 CDT Marvel Charles [facility]-94031 Level 3 Est. Patient 08:20:05 CDT Alina Castaneda MD [facility]-50902 Level 3 Est. Patient 15:17:18 CDT Alina Castaneda MD [facility]-43048 Level 3 Est. Patient 14:25:36 ADV[employer]ED SOLUTIONS ARCHITECT Marvel Charles [facility]-10916 Level 3 Est. Patient 10:09:15 ADV[employer]ED SOLUTIONS ARCHITECT Marvel Charles [facility]-28439 Level 3 Est. Patient 21:28:43 CDT Alina Castaneda [facility]39120 Level 3 Est. [facility]:20:[facility]-50342 Level 4 Est. Patient 19:08:12 CDT Alina Castaneda MD [facility]-04329 Level 3 Est. Patient 15:06:39 CDT Marvel Charles [facility]-20095 Level 4 Est. Patient 17:48:15 CDT Alina Castaneda MD [facility]-66717 Level 3 Est. Patient 14:53:49 CDT Alina Castaneda MD [facility]-51238 Level 3 Est. Patient 09:35:16 CDT Alina Castaneda MD [facility]-92153 Level 3 Est. Patient 12:23:22 CDT Alina Castaneda MD [facility]-35475 Level 3 Est. Patient 16:19:15 CDT Alina Castaneda MD [facility]-54509 Level 3 Est. Patient 21:39:56 ADVANCED SOLUTIONS ARCHITECT Alina Castaneda MD [facility]-58008 Level 4 Est. Patient 14:12:56 AD[employer] ARCHITECT Alina Castaneda MD [facility]-18933 Level 2 Est. Patient 15:34:57 ADVANCED SOLUTIONS ARCHITECT Alina Castaneda MD [facility]-89083 Level 3 Est. Patient 12:17:04 ADVANCED SOLUTIONS ARCHITECT Alina Castaneda MD [facility]06547 Level 3 Est. Patient 09:18:18 ADVANCED SOLUTIONS ARCHITECT [facility]-41476 Level 2 Est. Patient 21:50:24 CDT Alina Castaneda MD [facility]44835 Level 3 Est. Patient 09:17:28 CDT [place]-62168 Level 4 Est. Patient 18:54:02 CDT Alina Castaneda MD [facility]-70896 Level 3 Est. Patient 10:47:10 CDT Alina Castaneda MD [facility]-45830 Level 3 Est. Patient 09:22:20 CDT [facility]-64645 Level 3 Est. Patient 16:39:43 CDT [facility]-02565 Level 3 Est. Patient 16:05:16 CDT Alina Castaneda MD [facility]-27995 Level 3 Est. Patient 00:29:15 CDT Alina Castaneda MD [facility]67040 Level 3 Est. 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 Patient 21:30:19 ADVANCED SOLUTIONS ARCHITECT Alina Castaneda MD PhD [facility] CPT-35510 Level 4 Est. Patient 17:04:11 ADVANCED SOLUTIONS ARCHITECT [place] [facility] CPT-52837 Level 3 Est. Patient 15:34:11 ADVANCED SOLUTIONS ARCHITECT [place] [facility] CPT-42729 Level 2 Est. Patient 12:51:58 ADVANCED SOLUTIONS ARCHITECT Alina Castaneda MD PhD [facility] CPT-06783 Level 3 Est. Patient 13:20:01 ADVANCED SOLUTIONS ARCHITECT Alina Castaneda MD PhD [facility] CPT-96505 Level 3 Est. Patient 09:23:35 CDT Alina Castaneda MD PhD [facility] Procedures Code Procedure Name Date Entry Date Standard Description CPT-65798 Bladder Scan 14:39:01 ADVANCED SOLUTIONS ARCHITECT CPT-TCMM Transitional Care Mgmt-Moderate 10:30:19 ADVANCED SOLUTIONS ARCHITECT CPT-73124 Bladder Scan 12:36:44 CDT CPT-36318 Bladder Scan 21:54:06 CDT CPT-G0008 Administration of Influenza Virus Vaccine 13:05:26 CDT CPT-84987 Fluzone Quadrivalent Intramuscular Suspension 0.5 ML 13: 05:26 CDT CPT-31577 Administration single or combination vaccine inc oral 11 :49:51 CDT CPT-43891 Pneumovax 11:49:51 CDT CPT-30686 Ribs unilateral 2V 12:37:22 ADVANCED SOLUTIONS ARCHITECT CPT-69304 Chest 2V Frontal and Lat 17:15:26 CDT CPT-24240 Abx/Therapy Injection 18:54:02 CDT CPT-J0696 Rocephin 1000 mg (Ceftriaxone) 16:00:32 CDT CPT-38861 Chest 2V Frontal and Lat 15:26:45 CDT CPT-43573 Chest 2V Frontal and Lat 10:23:27 CDT CPT-59390 Venipuncture Draw Fee 10:11:00 CDT CPT-54140 Administration single or combination vaccine inc oral 11 :56:38 CDT CPT-21211 Influenza split virus > age 3 11:56:38 CDT CPT-01924 Venipuncture Draw Fee 08:49:54 ADVANCED SOLUTIONS ARCHITECT CPT-89501 EKG Trac and Interp 17:54:19 ADVANCED SOLUTIONS ARCHITECT
--- OUTSIDE RECORDS SUMMARY | 2018-07-02 16:21 | XMS REPORT | Clinical Summary ---
Author Author Admin, TERELL Organization [facility] Address Unknown Phone Unavailable Allergies, Adverse Reactions, Alerts Allergy Name Reaction Description Start Date Severity Status Provider PROZAC Critical Active CRYTSAL Suarez ABILIFGreg Critical Active CRYSTAL Suarez Conditions 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 Kacey TOPOGRAPHICAL SURVEYOR Benign paroxysmal positional vertigo Vertigo, benign paroxysmal position 386.11 Inactive Mima Kacey TOPOGRAPHICAL SURVEYOR Benign paroxysmal positional vertigo High-risk sexual behavior [...] 10u lunch and supper INSULIN LISPRO (HUMAN) 87600306653 Active Marvel Araceli MARROQUIN Active LATUDA 120 MG ORAL TABS 1 pill by mouth nightly LURASIDONE HCL 25979145202 Active Alina Castaneda MD PhD Active COLACE 100 MG CAPS 1 pill by mouth twice daily, for constipation DOCUSATE SODIUM 97113120257 Active Alina Castaneda MD PhD Active TRUETEST TEST STRP check blood sugars 3x/day GLUCOSE BLOOD 87036668444 Active Malnivia 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 [employer] Active ACCU-CHEK ROSA UZMA Use device to check blood sugars BLOOD GLUCOSE MONITORING SUPPL 62098949077 No Longer Active Marvel 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 [employer] TRAINER Active ACCU-CHEK ROSA INVITR STRP use strips with device to check blood sugars 3 times daily GLUCOSE BLOOD 37967109925 No Longer Active Brooksnivia Araceli MENDOZAP Active VERAPAMIL HCL ER 180 MG ORAL CR-TABS 1 pill by mouth twice daily, for migraine prevention VERAPAMIL HCL 62737705297 Active Alina Castaneda MD PhD Active CYCLOBENZAPRINE HCL 10 MG TABS 1 tablet by mouth three times daily, scheduled CYCLOBENZAPRINE HCL 29575518161 No Longer Active Alina Castaneda MD PhD Active HUMALOG 100 UNIT/ML SOLN Take 20 units with breakfast, 10u with lunch and suppetr. INSULIN LISPRO (HUMAN) 78703827217 No Longer Active Alina Castaneda MD PhD Active TRUETEST TEST STRP check sugars 4x/day GLUCOSE BLOOD 16583931055 No Longer Active Alina Castaneda MD PhD Active MORPHINE SULFATE 30 MG TABS 1 pill by mouth twice daily, for pain MORPHINE SULFATE 91267083852 Active Alina Castaneda MD PhD Active ACYCLOVIR 400 MG ORAL TABS 1 pill three times daily x 5 days, for cold sore outbreak ACYCLOVIR 55772937032 No Longer Active Alina Castaneda MD PhD Active PENICILLIN V POTASSIUM 500 MG TABS 1 pill by mouth three times daily PENICILLIN V POTASSIUM 82681523935 No Longer Active Alina Castaneda MD PhD Active UROXATRAL 10 MG [id number]-[id number] Take 1 tablet by mouth daily ALFUZOSIN HCL 07372087082 No Longer Active Alina Castaneda MD PhD Active THIOTHIXENE 5 MG CAPS by mouth twice a day THIOTHIXENE 61950463814 No Longer Active Alina Castaneda MD PhD Active ZYPREXA 7.5 MG TABS 1 at HS OLANZAPINE 95872894718 No Longer Active Alina Castaneda MD PhD Active LEVEMIR 100 UNIT/ML SOLN Take 70 u at 7-8pm INSULIN DETEMIR 40788248046 Active Maliheh Ziglari [employer] TRAINER Active BD INSULIN SYRINGE 28G X 1/2" 1 ML MISC 1 four times per day INSULIN SYRINGE-NEEDLE U-100 57714885082 Active Mallashondaeh Ziglari [employer] Active TOLTERODINE TARTRATE 2 MG TABS 1 pill twice daily, for bladder TOLTERODINE TARTRATE 91203428919 Active Alina Castaneda MD PhD Active DETROL LA 4 MG [id number]-[id number] Take 1 tablet by mouth daily TOLTERODINE TARTRATE 03923406193 No Longer Active Alina Castaneda MD PhD Active HYDROCODONE-ACETAMINOPHEN 5-325 MG TABS 2 tabs by mouth three times daily as needed for pain HYDROCODONE-ACETAMINOPHEN 91882631495 Active Alina Castaneda MD PhD Active TERESE CONTOUR TEST STRP monitor blood sugars 3x/day GLUCOSE BLOOD 60468836887 No Longer Active Alina Castaneda MD PhD Active EQL TRUETEST TEST STRP Test blood sugar TID GLUCOSE BLOOD 72925584522 No Longer Active Alina Castaneda MD PhD Active FLUTICASONE PROPIONATE 50 MCG/ACT SUSP 2 sprays each nostril qDay x 30 days FLUTICASONE PROPIONATE 55230309185 No Longer Active Alina Castaneda MD PhD Active IBUPROFEN 200 MG TABS 1 Q 6 hr. PRN IBUPROFEN 50913177905 No Longer Active Alina Castaneda MD PhD Active NIACIN ER 500 MG CR-TABS 4 qHS (for triglycerides) NIACIN 80266686688 No Longer Active Alina Castaneda MD PhD Active ALFUZOSIN HCL ER 10 MG [id number] 1 tablet daily ALFUZOSIN HCL 41864754776 Active Vanessa Hickey MD Active CLONAZEPAM 1 MG TABS 1 pill by mouth three times daily CLONAZEPAM 16958716428 Active Alina Castaneda MD PhD Active LOVAZA 1 GM CAPS 4 daily (for triglycerides) [id number]-[id number] ETHYL ESTERS 76533964086 Active Alina Castaneda MD PhD Active SAPHRIS 5 MG SUBL by mouth twice a day ASENAPINE MALEATE 73498933964 No Longer Active Marvel MARROQUIN Active ACETAMINOPHEN 500 MG TABS 2 Q 6 hr. PRN ACETAMINOPHEN 07103502168 No Longer Active Marvel MARROQUIN Active ORPHENADRINE CITRATE ER 100 MG MU19D-ARJ 1 every 12 hr. as needed ORPHENADRINE CITRATE 51115297749 No Longer Active Alina Castaneda MD PhD Active NIACIN CR 500 MG CR-TABS 2 qHS NIACIN 72366224217 No Longer Active Alina Castaneda MD PhD Active AMOXICILLIN 500 MG CAPS 2 po BID x 10 days AMOXICILLIN 36064283951 No Longer Active Alina Castaneda MD PhD Active HYDROCODONE-ACETAMINOPHEN 7.5-325 MG TABS 1 four times a day as needed for pain HYDROCODONE-ACETAMINOPHEN 99143386953 No Longer Active Alina Castaneda MD PhD Active METFORMIN HCL ER 500 MG [id number]-JSZ Take three tablets by mouth everyday METFORMIN HCL 49274163516 Active Marvel Mackenzieglestela [employer] TRAINER Active DOXEPIN HCL 10 MG CAPS Take 1 tablet by mouth daily DOXEPIN HCL 08973777840 No Longer Active Salina Han [facility] Active NAVANE 10 MG CAPS 1/2 tablet twice a day THIOTHIXENE No Longer Active Salina Han A Active CYCLOBENZAPRINE HCL 10 MG TABS 1/2 tablet by mouth every 8 hours as needed for muscle spasms CYCLOBENZAPRINE HCL 01323379235 No Longer Active Alina Castaneda MD PhD Active BACTROBAN 2 % CREAM apply to ear and nose twice daily MUPIROCIN CALCIUM 04378844455 No Longer Active Alina Castaneda MD PhD Active HYDROCODONE-ACETAMINOPHEN 5-325 MG TABS take one tablet by mouth every four hours as needed for pain HYDROCODONE-ACETAMINOPHEN 89089174285 No Longer Active Alina Csataneda MD PhD Active ZOLPIDEM TARTRATE 10 MG TABS take at bedtime ZOLPIDEM TARTRATE 24083109080 Active Alina Castaneda MD PhD Active ZYPREXA 5 MG TABS take one tablet by mouth every evening OLANZAPINE 08869357073 No Longer Active Alina Castaneda MD PhD Active ALBUTEROL SULFATE 0.083 % NEBU SOLN one vial per nebulizer TID and PRN cough/ soa ALBUTEROL SULFATE 50216174297 No Longer Active Alina Castaneda MD PhD Active GUAIFENESIN 600 MG [id number]-ZMS 1 tablet by mouth twice daily if needed for cough GUAIFENESIN 29286784287 No Longer Active Marvel [facility] Active AZITHROMYCIN 500 MG SOLR 1 po q day AZITHROMYCIN 42656687387 No Longer Active Alina Castaneda MD PhD Active METOPROLOL SUCCINATE 100 MG [id number]-AYO 1 by mouth daily for blood pressure METOPROLOL SUCCINATE 02833389769 Active Alina Castaneda MD PhD Active PROMETHAZINE-CODEINE 6.25-10 MG/5ML SYRP 1 tsp po q 6 hours prn cough PROMETHAZINE-CODEINE 05028817364 No Longer Active Alina Castaneda MD PhD Active CEFDINIR 300 MG CAPS by mouth twice a day CEFDINIR 09123063782 No Longer Active Alina Castaneda MD PhD Active METFORMIN HCL 500 MG SG47S-MGW Take 3 tablets by mouth everyday METFORMIN HCL 08468982483 No Longer Active Alina Castaneda MD PhD Active LEVEMIR 100 UNIT/ML SOLN 90 units SQ qHS INSULIN DETEMIR 82553021099 No Longer Active Marvel MARROQUIN Active TOPROL XL 100 MG [id number]-QJP 1 @ HS METOPROLOL SUCCINATE 44895326494 No Longer Active Marvel MARROQUIN Active ALLOPURINOL 300 MG TABS Take one by mouth daily ALLOPURINOL 74084941545 Active Alina Castaneda MD PhD Active ZYPREXA 10 MG TABS Take one by mouth daily OLANZAPINE 37971625209 No Longer Active Alina Castaneda MD PhD Active NOVOLOG 100 UNIT/ML SOLN 40 units with every meal INSULIN ASPART 68866466372 No Longer Active Alina Castaneda MD PhD Active VERAPAMIL HCL CR 120 MG TAB CR 1 qPM VERAPAMIL HCL 12143420232 No Longer Active Salina Han A Active ZYPREXA 15 MG TABS Take 1 tablet by mouth daily OLANZAPINE 58635605102 No Longer Active Mavrel MARROQUIN Active LISINOPRIL 20 MG TABS 1 BID LISINOPRIL 33155019600 Active Alina Castaneda MD PhD Active ALBUTEROL SULFATE (2.5 MG/3ML) 0.083% NEBU 1 neb tid and prn cough ALBUTEROL SULFATE 50225686027 No Longer Active Alina Castaneda MD PhD Active FLUVOXAMINE MALEATE 100 MG TABS Take one (1) tablet by mouth am, 1/2 at noon, 1 pm FLUVOXAMINE MALEATE 45550628973 Active Alina Castaneda MD PhD Active TRAVATAN Z 0.004 % SOLN 1 gtt each eye daily TRAVOPROST 50347660852 Active CRYSTAL Suarez Active LANTUS 100 UNIT/ML SOLN 60 units sq q hs INSULIN GLARGINE 05633430861 No Longer Active CRYSTAL Suarez Active ALBUTEROL SULFATE (2.5 MG/3ML) 0.083% NEBU 1 neb tid and prn cough ALBUTEROL SULFATE (2.5 MG/3ML) 0.083% NEBU 860840 ALBUTEROL SULFATE Inactive ZYPREXA 15 MG TABS Take 1 tablet by mouth daily ZYPREXA 15 MG TABS 995025 OLANZAPINE Inactive VERAPAMIL HCL CR 120 MG TAB CR 1 qPM VERAPAMIL HCL CR 120 MG TAB CR VERAPAMIL HCL Inactive ZYPREXA 10 MG TABS Take one by mouth daily ZYPREXA 10 MG TABS 043224 OLANZAPINE Inactive TOPROL XL 100 MG [id number]-EZO 1 @ HS TOPROL XL 100 MG TF85R-HQZ METOPROLOL SUCCINATE Inactive LEVEMIR 100 UNIT/ML SOLN 90 units SQ qHS LEVEMIR 100 UNIT/ML SOLN INSULIN DETEMIR Inactive PROMETHAZINE-CODEINE 6.25-10 MG/5ML SYRP 1 tsp po q 6 hours prn cough PROMETHAZINE-CODEINE 6.25-10 MG/5ML SYRP 888926 PROMETHAZINE- CODEINE Inactive GUAIFENESIN 600 MG BV46C-SPM 1 tablet by mouth twice daily if needed for cough GUAIFENESIN 600 MG PE72C-MDJ GUAIFENESIN Inactive ALBUTEROL SULFATE 0.083 % NEBU SOLN one vial per nebulizer TID and PRN cough/ soa ALBUTEROL SULFATE 0.083 % NEBU SOLN 019470 ALBUTEROL SULFATE Inactive ZYPREXA 5 MG TABS take one tablet by mouth every evening ZYPREXA 5 MG TABS 035559 OLANZAPINE Inactive HYDROCODONE-ACETAMINOPHEN 5-325 MG TABS take one tablet by mouth every four hours as needed for pain HYDROCODONE-ACETAMINOPHEN 5-325 MG TABS 592560 HYDROCODONE-ACETAMINOPHEN Inactive BACTROBAN 2 % CREAM apply to ear and nose twice daily BACTROBAN 2 % CREAM 361496 MUPIROCIN CALCIUM Inactive CYCLOBENZAPRINE HCL 10 MG TABS 1/2 tablet by mouth every 8 hours as needed for muscle spasms CYCLOBENZAPRINE HCL 10 MG TABS 137375 CYCLOBENZAPRINE HCL Inactive NAVANE 10 MG CAPS 1/2 tablet twice a day NAVANE 10 MG CAPS THIOTHIXENE Inactive DOXEPIN HCL 10 MG CAPS Take 1 tablet by mouth daily DOXEPIN HCL 10 MG CAPS 8581435 DOXEPIN HCL Inactive HYDROCODONE-ACETAMINOPHEN 7.5-325 MG TABS 1 four times a day as needed for pain HYDROCODONE-ACETAMINOPHEN 7.5-325 MG TABS 074645 HYDROCODONE-ACETAMINOPHEN Inactive NIACIN CR 500 MG CR-TABS 2 qHS NIACIN CR 500 MG CR- TABS NIACIN Inactive ORPHENADRINE CITRATE ER 100 MG PR98J-ABP 1 every 12 hr. as needed ORPHENADRINE CITRATE ER 100 MG [id number] ORPHENADRINE CITRATE Inactive ACETAMINOPHEN 500 MG TABS 2 Q 6 hr. PRN ACETAMINOPHEN 500 MG TABS 395257 ACETAMINOPHEN Inactive SAPHRIS 5 MG SUBL by mouth twice a day SAPHRIS 5 MG SUBL ASENAPINE MALEATE Inactive NIACIN ER 500 MG CR-TABS 4 qHS (for triglycerides) NIACIN ER 500 MG CR-TABS NIACIN Inactive IBUPROFEN 200 MG TABS 1 Q 6 hr. PRN IBUPROFEN 200 MG TABS 502956 IBUPROFEN Inactive FLUTICASONE PROPIONATE 50 MCG/ACT SUSP 2 sprays each nostril qDay x 30 days FLUTICASONE PROPIONATE 50 MCG/ACT SUSP 843044 FLUTICASONE PROPIONATE Inactive EQL TRUETEST TEST STRP Test blood sugar TID EQL TRUETEST TEST STRP GLUCOSE BLOOD Inactive TERESE CONTOUR TEST STRP monitor blood sugars 3x/day TERESE CONTOUR TEST STRP GLUCOSE BLOOD Inactive DETROL LA 4 MG [id number]-CZJ Take 1 tablet by mouth daily DETROL LA 4 MG [id number]-QKI TOLTERODINE TARTRATE Inactive ZYPREXA 7.5 MG TABS 1 at HS ZYPREXA 7.5 MG TABS 753124 OLANZAPINE Inactive THIOTHIXENE 5 MG CAPS by mouth twice a day THIOTHIXENE 5 MG CAPS 679124 THIOTHIXENE Inactive UROXATRAL 10 MG HZ16G-YDL Take 1 tablet by mouth daily UROXATRAL 10 MG LQ95F-RQI ALFUZOSIN HCL Inactive ACYCLOVIR 400 MG ORAL TABS 1 pill three times daily x 5 days, for cold sore outbreak ACYCLOVIR 400 MG ORAL TABS 760862 ACYCLOVIR Inactive TRUETEST TEST STRP check sugars 4x/day TRUETEST TEST STRP GLUCOSE BLOOD Inactive HUMALOG 100 UNIT/ML SOLN Take 20 units with breakfast, 10u with lunch and suppetr. HUMALOG 100 UNIT/ML SOLN INSULIN LISPRO ( HUMAN) Inactive CYCLOBENZAPRINE HCL 10 MG TABS 1 tablet by mouth three times daily, scheduled CYCLOBENZAPRINE HCL 10 MG TABS 895828 CYCLOBENZAPRINE HCL Inactive ACCU-CHEK ROSA INVITR STRP use strips with device to check blood sugars 3 times daily ACCU-CHEK ROSA INVITR STRP GLUCOSE BLOOD Inactive ACCU-CHEK ROSA UZMA Use device to check blood sugars ACCU-CHEK ROSA UZMA BLOOD GLUCOSE MONITORING SUPPL Inactive CEFDINIR 300 MG CAPS by mouth twice a day CEFDINIR 300 MG CAPS 710039 CEFDINIR Inactive AZITHROMYCIN 500 MG SOLR 1 po q day AZITHROMYCIN 500 MG SOLR 369457 AZITHROMYCIN Inactive AMOXICILLIN 500 MG CAPS 2 po BID x 10 days AMOXICILLIN 500 MG CAPS 632048 AMOXICILLIN Inactive PENICILLIN V POTASSIUM 500 MG TABS 1 pill by mouth three times daily PENICILLIN V POTASSIUM 500 MG TABS 437126 PENICILLIN V POTASSIUM Inactive Immunizations Vaccine Administration [...] Fluvirin, Fluarix, Agriflu(>=18 yo)) Fluzone (>3 yrs.) [[id number]] Influenza, seasonal, injectable pneumococcal immunization administered Pneumovax [...] HGBA1C - Chemistry sodium, serum 131 mmol/L 096-320 0749/12/30 potassium, serum 5.0 mmol/L 3.5-5.2 chloride, serum 95 mmol/L 98-107 carbon dioxide, venous blood 26.7 mmol/L 21.0-32.0 blood glucose 112 mg/dL 65-110 calcium, serum 9.2 mg/dL 8.5-10.1 urea nitrogen, blood 12 mg/dL 7-18 creatinine, serum 1.10 mg/dL 0.60-1.30 hemoglobin A1C, blood, as % of total hemoglobin 5.8 % 4.3-6.0 Lab Report: Basic Metabolic Panel, HGBA1C, MICROALBUMIN - Chemistry sodium, serum 137 mmol/L 060-749 5541/05/19 potassium, serum 5.2 mmol/L 3.5-5.2 chloride, serum [...] microalbumin, urine 10 0-19 Lab Report: Chlamydia/GC APTIMA/68002, HIV-1/2 Agn/Dominga/28120, RPR (DX) W ... - Chemistry hepatitis B surface antigen NON-REACTIVE NON-REACTIVE Lab Report: Chlamydia/GC APTIMA/93079, HIV-1/2 Agn/Dominga/13916, RPR (DX) W ... - Lab chlamydia DNA probe NOT DETECTED NOT DETECTED Lab Report: Chlamydia/GC APTIMA/85399, HIV-1/2 Agn/Dominga/74452, RPR (DX) W ... - Microbiology Neisseria gonorrhoeae DNA probe NOT DETECTED NOT DETECTED Lab Report: Chlamydia/GC APTIMA/59339, HIV-1/2 Agn/Dominga/27100, RPR (DX) W ... - Serology rapid plasma reagin antibody titer NON-REACTIVE NON-REACTIVE Lab Report: Comp. Metabolic Panel - Chemistry sodium, serum 127 mmol/L 957-985 5719/10/27 potassium, serum 4.1 mmol/L 3.5-5.2 chloride, serum [...] CBC - Chemistry cholesterol, serum 131 mg/dL 597-722 3849/06/03 triglyceride, serum, fasting 383 mg/dL 30-200 HDL [...] mg/dL Encounters Code Encounter Date Provider Facility CPT-80899 Level 3 Est. Patient 09:34:56 CDT Alina Castaneda MD PhD [facility] CPT-88596 Level 3 Est. Patient 21:40:19 CDT Mima Erazo APRN [facility] CPT-67468 Level 3 Est. Patient 09:26:40 CDT Marvel MARROQUIN [facility] CPT-36431 Level 3 Est. Patient 12:36:43 CDT Vanessa Hickey MD [facility] CPT-37147 Level 3 Est. Patient 12:57:49 CDT Vanessa Hickey MD [facility] CPT-30127 Level 3 Est. Patient 00:28:25 CDT Alina Castaneda MD [facility] CPT-07315 Level 2 Est. Patient 12:52:14 CDT Alina Castaneda MD [facility] CPT-01710 Level 3 Est. Patient 11:51:18 INTERNAL GRINDER Alina Castaneda MD [facility] CPT-39195 Level 3 Est. Patient 10:09:22 INTERNAL GRINDER Alina Castaneda MD [facility] CPT-17852 Level 3 Est. Patient 14:36:26 INTERNAL GRINDER Marvel Gurdeepajayestela [facility]-48243 Level 3 Est. Patient 13:34:47 INTERNAL GRINDER Alina Castaneda MD [facility]99611 Level 3 Est. Patient 19:52:08 INTERNAL GRINDER Alina Castaneda MD [facility]59550 Level 3 Est. Patient 10:01:51 INTERNAL GRINDER Marvel Charles [facility]62560 Level 3 Est. Patient 21:54:06 CDT Vanessa Hickey MD [facility]04321 Level 3 Est. Patient 08:54:46 CDT Alina Castaneda MD [facility]04602 Level 3 Est. Patient 09:32:11 CDT Marvel Gurdeepajayestela [facility]70016 Level 3 Est. Patient 12:02:49 CDT Alina Castaneda MD [facility]30716 Level 3 Est. Patient 19:17:33 CDT Alina Castaneda MD [facility]70387 Level 3 Est. Patient 13:19:10 CDT Brooksjohn Charles [facility]-63485 Level 3 Est. Patient 08:20:05 CDT Alina Castaneda MD [facility]14672 Level 3 Est. Patient 15:17:18 CDT Alina Castaneda MD [facility]43303 Level 3 Est. Patient 14:25:36 INTERNAL GRINDER Marvel Araceli [facility]81862 Level 3 Est. Patient 10:09:15 INTERNAL GRINDER Marvel Araceli [facility]02091 Level 3 Est. Patient 21:28:43 CDT Alina Castaneda MD [facility]-01584 Level 3 Est. Patient 15:20:11 CDT Marvel Charles [facility]-11927 Level 4 Est. Patient 19:08:12 CDT Alina Castaneda MD [facility]-36062 Level 3 Est. Patient 15:06:39 CDT Marvel Charles [facility]-69931 Level 4 Est. Patient 17:48:15 CDT Alina Castaneda MD [facility]-37874 Level 3 Est. Patient 14:53:49 CDT Alina Castaneda MD [facility]-63846 Level 3 Est. Patient 09:35:16 CDT Alina Castaneda MD [facility]-85623 Level 3 Est. Patient 12:23:22 CDT Alina Castaneda MD [facility]-57069 Level 3 Est. Patient 16:19:15 CDT Alina Castaneda MD [facility]-63469 Level 3 Est. Patient 21:39:56 INTERNAL GRINDER Alina Castaneda MD [facility]-57077 Level 4 Est. Patient 14:12:56 INTERNAL GRINDER Alina Castaneda MD [facility]-39344 Level 2 Est. Patient 15:34:57 INTERNAL GRINDER Alina Castaneda MD [facility]-41480 Level 3 Est. Patient 12:17:04 INTERNAL GRINDER Alina Castaneda MD [facility]-16114 Level 3 Est. Patient 09:18:18 INTERNAL GRINDER Marvel Charles [facility]-69145 Level 2 Est. Patient 21:50:24 CDT Alina Castaneda MD [facility]-95032 Level 3 Est. Patient 09:17:28 CDT Marvel Charles [facility]-11910 Level 4 Est. Patient 18:54:02 CDT Alina Castaneda MD [facility]75844 Level 3 Est. Patient 10:47:10 CDT Alina Castaneda MD [facility]13956 Level 3 Est. Patient 09:22:20 CDT Marvel Charles [facility]-99436 Level 3 Est. Patient 16:39:43 CDT Brooksnivia Charles [facility]-18826 Level 3 Est. Patient 16:05:16 CDT Alina Castaneda MD [facility]08791 Level 3 Est. Patient 00:29:15 CDT Alina Castaneda MD [facility]13028 Level 3 Est. Patient 10:49:22 INTERNAL GRINDER Marvel Charles [facility]-14355 Level 3 Est. Patient 21:30:19 INTERNAL GRINDER Alina Castaneda MD [facility]-28286 Level 4 Est. Patient 17:04:11 INTERNAL GRINDER Marvel Charles [facility]-52653 Level 3 Est. Patient 15:34:11 INTERNAL GRINDER Marvel Charles [facility]-30653 Level 2 Est. Patient 12:51:58 INTERNAL GRINDER Alina Castaneda MD [facility]33186 Level 3 Est. Patient 13:20:01 INTERNAL GRINDER Alina Castaneda MD [facility]07214 Level 3 Est. Patient 09:23:35 CDT Alina Castaneda MD PhD [facility] Procedures Code Procedure Name Date Entry Date Standard Description CPT-99385 Bladder Scan 12:36:44 CDT CPT-28538 Bladder Scan 21:54:06 CDT CPT-G0008 Administration of Influenza Virus Vaccine 13:05:26 CDT CPT-91995 Fluzone Quadrivalent Intramuscular Suspension 0.5 ML 13: 05:26 CDT CPT-17968 Administration single or combination vaccine inc oral 11 :49:51 CDT CPT-62912 Pneumovax 11:49:51 CDT CPT-24097 Ribs unilateral 2V 12:37:22 INTERNAL GRINDER CPT-20854 Chest 2V Frontal and Lat 17:15:26 CDT CPT-19481 Abx/Therapy Injection 18:54:02 CDT CPT-J0696 Rocephin 1000 mg (Ceftriaxone) 16:00:32 CDT CPT-52538 Chest 2V Frontal and Lat 15:26:45 CDT CPT-44723 Chest 2V Frontal and Lat 10:23:27 CDT CPT-77711 Venipuncture Draw Fee 10:11:00 CDT CPT-42584 Administration single or combination vaccine inc oral 11 :56:38 CDT CPT-72202 Influenza split virus > age 3 11:56:38 CDT CPT-12428 Venipuncture Draw Fee 08:49:54 INTERNAL GRINDER CPT-34122 EKG Trac and Interp 17:54:19 INTERNAL GRINDER
--- OUTSIDE RECORDS SUMMARY | 2018-07-02 16:23 | XMS REPORT | Clinical Summary ---
Author Author Admin, TERELL Organization [facility] Address Unknown Phone Unavailable Allergies, Adverse 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 Kacey [place] Benign paroxysmal positional vertigo Vertigo, benign paroxysmal [...] PhD FH STROKE ICD-V17.1 Inactive Marvel MENDOZAP FATIGUE [...] ORGANISM UNSPECIFIED ICD-486 Roro Castaneda MD PhD SINUSITIS, ACUTE ICD-461.9 Inactive Alina Castaneda MD PhD SPECIAL SCREENING FOR MALIGNANT NEOPLASM OF PROSTATE ICD-V76.44 Roro Castaneda MD PhD Confusion ICD-298.9 Roro Castaneda MD PhD Open wound of tongue and floor of mouth, uncomplicated ICD-873.64 Roro Castaneda MD PhD Chest pain, atypical ICD-786.59 Roro Castaneda MD PhD Chest pain, atypical ICD-786.59 Roro Castaneda MD PhD Hypoglycemia ICD-251.2 Roro Castaneda MD PhD Dizziness ICD-780.4 Roro Castaneda MD PhD Medication List Medication Instructions Start Date Stop Date Generic Name NDC Status Provider Patient Instruction HUMALOG 100 UNIT/ML SC SOLN 20u am , 10u lunch and supper INSULIN LISPRO (HUMAN) 80397267694 Active Marvel Araceli MARROQUIN Active LATUDA 120 MG ORAL TABS 1 pill by mouth nightly LURASIDONE HCL 87006384799 Active Alina Castaneda MD PhD Active COLACE 100 MG CAPS 1 pill by mouth twice daily, for constipation DOCUSATE SODIUM 40893824093 Active Alina Castaneda MD PhD Active TRUETEST TEST STRP check blood sugars 3x/day GLUCOSE BLOOD 45485680700 Active Malnivia 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 EXCHANGE CONSULTANT Active ACCU-CHEK ROSA UZMA Use device to check blood sugars BLOOD GLUCOSE MONITORING SUPPL 36811945361 No Longer Active Marvel 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 EXCHANGE CONSULTANT Active ACCU-CHEK ROSA INVITR STRP use strips with device to check blood sugars 3 times daily GLUCOSE BLOOD 11806945048 No Longer Active Brooksnivia Araceli MENDOZAP Active VERAPAMIL HCL ER 180 MG ORAL CR-TABS 1 pill by mouth twice daily, for migraine prevention VERAPAMIL HCL 64180778005 Active Alina Castaneda MD PhD Active CYCLOBENZAPRINE HCL 10 MG TABS 1 tablet by mouth three times daily, scheduled CYCLOBENZAPRINE HCL 89657432133 No Longer Active Alina Castaneda MD PhD Active HUMALOG 100 UNIT/ML SOLN Take 20 units with breakfast, 10u with lunch and suppetr. INSULIN LISPRO (HUMAN) 40557440805 No Longer Active Alina Castaneda MD PhD Active TRUETEST TEST STRP check sugars 4x/day GLUCOSE BLOOD 54286356858 No Longer Active Alina Castaneda MD PhD Active MORPHINE SULFATE 30 MG TABS 1 pill by mouth twice daily, for pain MORPHINE SULFATE 57893783416 Active Mason Loredo MD Active ACYCLOVIR 400 MG ORAL TABS 1 pill three times daily x 5 days, for cold sore outbreak ACYCLOVIR 69930797223 No Longer Active Alina Castaneda MD PhD Active PENICILLIN V POTASSIUM 500 MG TABS 1 pill by mouth three times daily PENICILLIN V POTASSIUM 32359892548 No Longer Active Alina Castaneda MD PhD Active UROXATRAL 10 MG FD51A-XVV Take 1 tablet by mouth daily ALFUZOSIN HCL 36827892704 No Longer Active Alina Castaneda MD PhD Active THIOTHIXENE 5 MG CAPS by mouth twice a day THIOTHIXENE 41111365440 No Longer Active Alina Castaneda MD PhD Active ZYPREXA 7.5 MG TABS 1 at HS OLANZAPINE 01803126522 No Longer Active Alina Castaneda MD PhD Active LEVEMIR 100 UNIT/ML SOLN Take 70 u at 7-8pm INSULIN DETEMIR 68610665282 Active Mallashondaeh Ziglari EXCHANGE CONSULTANT Active BD INSULIN SYRINGE 28G X 1/2" 1 ML MISC 1 four times per day INSULIN SYRINGE-NEEDLE U-100 28251019453 Active Maljohn Mackenzieglari EXCHANGE CONSULTANT Active TOLTERODINE TARTRATE 2 MG TABS 1 pill twice daily, for bladder TOLTERODINE TARTRATE 86284668871 Active Alina Castaneda MD PhD Active DETROL LA 4 MG ML19C-TIN Take 1 tablet by mouth daily TOLTERODINE TARTRATE 74476644370 No Longer Active Alina Castaneda MD PhD Active HYDROCODONE-ACETAMINOPHEN 5-325 MG TABS 2 tabs by mouth three times daily as needed for pain HYDROCODONE-ACETAMINOPHEN 33488375162 Active Alina Castaneda MD PhD Active TERESE CONTOUR TEST STRP monitor blood sugars 3x/day GLUCOSE BLOOD 36171723871 No Longer Active Alina Castaneda MD PhD Active EQL TRUETEST TEST STRP Test blood sugar TID GLUCOSE BLOOD 91647128119 No Longer Active Alina Castaneda MD PhD Active FLUTICASONE PROPIONATE 50 MCG/ACT SUSP 2 sprays each nostril qDay x 30 days FLUTICASONE PROPIONATE 68155189764 No Longer Active Alina Castaneda MD PhD Active IBUPROFEN 200 MG TABS 1 Q 6 hr. PRN IBUPROFEN 95355414287 No Longer Active Alina Castaneda MD PhD Active NIACIN ER 500 MG CR-TABS 4 qHS (for triglycerides) NIACIN 82777694483 No Longer Active Alina Castaneda MD PhD Active ALFUZOSIN HCL ER 10 MG HF72Z-BAA 1 tablet daily ALFUZOSIN HCL 77714771112 Active Vanessa Hickey MD Active CLONAZEPAM 1 MG TABS 1 pill by mouth three times daily CLONAZEPAM 06654475368 Active Alina Castaneda MD PhD Active LOVAZA 1 GM CAPS 4 daily (for triglycerides) DPRMO-2-SDIO ETHYL ESTERS 61063948883 Active Alina Castaneda MD PhD Active SAPHRIS 5 MG SUBL by mouth twice a day ASENAPINE MALEATE 81424593667 No Longer Active Marvel MARROQUIN Active ACETAMINOPHEN 500 MG TABS 2 Q 6 hr. PRN ACETAMINOPHEN 09912155298 No Longer Active Marvel MARROQUIN Active ORPHENADRINE CITRATE ER 100 MG GS50Q-CUO 1 every 12 hr. as needed ORPHENADRINE CITRATE 87487401902 No Longer Active Alina Castaneda MD PhD Active NIACIN CR 500 MG CR-TABS 2 qHS NIACIN 33952953178 No Longer Active Alina Castaneda MD PhD Active AMOXICILLIN 500 MG CAPS 2 po BID x 10 days AMOXICILLIN 54606595027 No Longer Active Alina Castaneda MD PhD Active HYDROCODONE-ACETAMINOPHEN 7.5-325 MG TABS 1 four times a day as needed for pain HYDROCODONE-ACETAMINOPHEN 47938686377 No Longer Active Alina Castaneda MD PhD Active METFORMIN HCL ER 500 MG CH15K-PAU Take three tablets by mouth everyday METFORMIN HCL 19377924606 Active Marvel MENDOZAP Active DOXEPIN HCL 10 MG CAPS Take 1 tablet by mouth daily DOXEPIN HCL 05895510634 No Longer Active Salina Han RMA Active NAVANE 10 MG CAPS 1/2 tablet twice a day THIOTHIXENE No Longer Active Salina Han RMA Active CYCLOBENZAPRINE HCL 10 MG TABS 1/2 tablet by mouth every 8 hours as needed for muscle spasms CYCLOBENZAPRINE HCL 66918813924 No Longer Active Alina Castaneda MD PhD Active BACTROBAN 2 % CREAM apply to ear and nose twice daily MUPIROCIN CALCIUM 20474556708 No Longer Active Alina Castaneda MD PhD Active HYDROCODONE-ACETAMINOPHEN 5-325 MG TABS take one tablet by mouth every four hours as needed for pain HYDROCODONE-ACETAMINOPHEN 61071949370 No Longer Active Alina Castaneda MD PhD Active ZOLPIDEM TARTRATE 10 MG TABS take at bedtime ZOLPIDEM TARTRATE 35866048369 Active Alina Castaneda MD PhD Active ZYPREXA 5 MG TABS take one tablet by mouth every evening OLANZAPINE 47200385856 No Longer Active Alina Castaneda MD PhD Active ALBUTEROL SULFATE 0.083 % NEBU SOLN one vial per nebulizer TID and PRN cough/ soa ALBUTEROL SULFATE 73158256354 No Longer Active Alina Castaneda MD PhD Active GUAIFENESIN 600 MG WS87S-OXI 1 tablet by mouth twice daily if needed for cough GUAIFENESIN 17977906789 No Longer Active Marvel MENDOZAP Active AZITHROMYCIN 500 MG SOLR 1 po q day AZITHROMYCIN 83698554938 No Longer Active Alina Castaneda MD PhD Active METOPROLOL SUCCINATE 100 MG ZF76M-RHW 1 by mouth daily for blood pressure METOPROLOL SUCCINATE 76216950036 Active Alina Castaneda MD PhD Active PROMETHAZINE-CODEINE 6.25-10 MG/5ML SYRP 1 tsp po q 6 hours prn cough PROMETHAZINE-CODEINE 60860231617 No Longer Active Alina Castaneda MD PhD Active CEFDINIR 300 MG CAPS by mouth twice a day CEFDINIR 50946284591 No Longer Active Alina Castaneda MD PhD Active METFORMIN HCL 500 MG MH12U-PIS Take 3 tablets by mouth everyday METFORMIN HCL 35863954905 No Longer Active Alina Castaneda MD PhD Active LEVEMIR 100 UNIT/ML SOLN 90 units SQ qHS INSULIN DETEMIR 87862824181 No Longer Active Marvel MARROQUIN Active TOPROL XL 100 MG ZP86H-BDZ 1 @ HS METOPROLOL SUCCINATE 73624063691 No Longer Active Marvel MARROQUIN Active ALLOPURINOL 300 MG TABS Take one by mouth daily ALLOPURINOL 76664965907 Active Alina Castaneda MD PhD Active ZYPREXA 10 MG TABS Take one by mouth daily OLANZAPINE 94700293724 No Longer Active Alina Castaneda MD PhD Active NOVOLOG 100 UNIT/ML SOLN 40 units with every meal INSULIN ASPART 52138925857 No Longer Active Alina Castaneda MD PhD Active VERAPAMIL HCL CR 120 MG TAB CR 1 qPM VERAPAMIL HCL 47741977508 No Longer Active Salina Han A Active ZYPREXA 15 MG TABS Take 1 tablet by mouth daily OLANZAPINE 54027153225 No Longer Active Brooksjohn MARROQUIN Active LISINOPRIL 20 MG TABS 1 BID LISINOPRIL 24307490764 Active Alina Castaneda MD PhD Active ALBUTEROL SULFATE (2.5 MG/3ML) 0.083% NEBU 1 neb tid and prn cough ALBUTEROL SULFATE 53494563837 No Longer Active Alina Castaneda MD PhD Active FLUVOXAMINE MALEATE 100 MG TABS Take one (1) tablet by mouth am, 1/2 at noon, 1 pm FLUVOXAMINE MALEATE 97690308848 Active Alina Castaneda MD PhD Active TRAVATAN Z 0.004 % SOLN 1 gtt each eye daily TRAVOPROST 11838429017 Active CRYSTAL Suarez Active LANTUS 100 UNIT/ML SOLN 60 units sq q hs INSULIN GLARGINE 53046798698 No Longer Active CRYSTAL Suarez Active ALBUTEROL SULFATE (2.5 MG/3ML) 0.083% NEBU 1 neb tid and prn cough ALBUTEROL SULFATE (2.5 MG/3ML) 0.083% NEBU 267431 ALBUTEROL SULFATE Inactive ZYPREXA 15 MG TABS Take 1 tablet by mouth daily ZYPREXA 15 MG TABS 934802 OLANZAPINE Inactive VERAPAMIL HCL CR 120 MG TAB CR 1 qPM VERAPAMIL HCL CR 120 MG TAB CR VERAPAMIL HCL Inactive ZYPREXA 10 MG TABS Take one by mouth daily ZYPREXA 10 MG TABS 069425 OLANZAPINE Inactive TOPROL XL 100 MG EV83G-HEJ 1 @ HS TOPROL XL 100 MG OH21J-HWL METOPROLOL SUCCINATE Inactive LEVEMIR 100 UNIT/ML SOLN 90 units SQ qHS LEVEMIR 100 UNIT/ML SOLN INSULIN DETEMIR Inactive PROMETHAZINE-CODEINE 6.25-10 MG/5ML SYRP 1 tsp po q 6 hours prn cough PROMETHAZINE-CODEINE 6.25-10 MG/5ML SYRP 845064 PROMETHAZINE- CODEINE Inactive GUAIFENESIN 600 MG ZW57X-DUB 1 tablet by mouth twice daily if needed for cough GUAIFENESIN 600 MG BV53T-XZK GUAIFENESIN Inactive ALBUTEROL SULFATE 0.083 % NEBU SOLN one vial per nebulizer TID and PRN cough/ soa ALBUTEROL SULFATE 0.083 % NEBU SOLN 611699 ALBUTEROL SULFATE Inactive ZYPREXA 5 MG TABS take one tablet by mouth every evening ZYPREXA 5 MG TABS 866357 OLANZAPINE Inactive HYDROCODONE-ACETAMINOPHEN 5-325 MG TABS take one tablet by mouth every four hours as needed for pain HYDROCODONE-ACETAMINOPHEN 5-325 MG TABS 566038 HYDROCODONE-ACETAMINOPHEN Inactive BACTROBAN 2 % CREAM apply to ear and nose twice daily BACTROBAN 2 % CREAM 660436 MUPIROCIN CALCIUM Inactive CYCLOBENZAPRINE HCL 10 MG TABS 1/2 tablet by mouth every 8 hours as needed for muscle spasms CYCLOBENZAPRINE HCL 10 MG TABS 580911 CYCLOBENZAPRINE HCL Inactive NAVANE 10 MG CAPS 1/2 tablet twice a day NAVANE 10 MG CAPS THIOTHIXENE Inactive DOXEPIN HCL 10 MG CAPS Take 1 tablet by mouth daily DOXEPIN HCL 10 MG CAPS 5504231 DOXEPIN HCL Inactive HYDROCODONE-ACETAMINOPHEN 7.5-325 MG TABS 1 four times a day as needed for pain HYDROCODONE-ACETAMINOPHEN 7.5-325 MG TABS 403392 HYDROCODONE-ACETAMINOPHEN Inactive NIACIN CR 500 MG CR-TABS 2 qHS NIACIN CR 500 MG CR- TABS NIACIN Inactive ORPHENADRINE CITRATE ER 100 MG LM22N-VGG 1 every 12 hr. as needed ORPHENADRINE CITRATE ER 100 MG TK13G-OLM ORPHENADRINE CITRATE Inactive ACETAMINOPHEN 500 MG TABS 2 Q 6 hr. PRN ACETAMINOPHEN 500 MG TABS 576482 ACETAMINOPHEN Inactive SAPHRIS 5 MG SUBL by mouth twice a day SAPHRIS 5 MG SUBL ASENAPINE MALEATE Inactive NIACIN ER 500 MG CR-TABS 4 qHS (for triglycerides) NIACIN ER 500 MG CR-TABS NIACIN Inactive IBUPROFEN 200 MG TABS 1 Q 6 hr. PRN IBUPROFEN 200 MG TABS 220099 IBUPROFEN Inactive FLUTICASONE PROPIONATE 50 MCG/ACT SUSP 2 sprays each nostril qDay x 30 days FLUTICASONE PROPIONATE 50 MCG/ACT SUSP 039860 FLUTICASONE PROPIONATE Inactive EQL TRUETEST TEST STRP Test blood sugar TID EQL TRUETEST TEST STRP GLUCOSE BLOOD Inactive TERESE CONTOUR TEST STRP monitor blood sugars 3x/day TERESE CONTOUR TEST STRP GLUCOSE BLOOD Inactive DETROL LA 4 MG XG40Z-SCC Take 1 tablet by mouth daily DETROL LA 4 MG IU26S-NDF TOLTERODINE TARTRATE Inactive ZYPREXA 7.5 MG TABS 1 at HS ZYPREXA 7.5 MG TABS 037596 OLANZAPINE Inactive THIOTHIXENE 5 MG CAPS by mouth twice a day THIOTHIXENE 5 MG CAPS 503057 THIOTHIXENE Inactive UROXATRAL 10 MG UZ30K-RNU Take 1 tablet by mouth daily UROXATRAL 10 MG LM52I-PGV ALFUZOSIN HCL Inactive ACYCLOVIR 400 MG ORAL TABS 1 pill three times daily x 5 days, for cold sore outbreak ACYCLOVIR 400 MG ORAL TABS 490719 ACYCLOVIR Inactive TRUETEST TEST STRP check sugars 4x/day TRUETEST TEST STRP GLUCOSE BLOOD Inactive HUMALOG 100 UNIT/ML SOLN Take 20 units with breakfast, 10u with lunch and suppetr. HUMALOG 100 UNIT/ML SOLN INSULIN LISPRO ( HUMAN) Inactive CYCLOBENZAPRINE HCL 10 MG TABS 1 tablet by mouth three times daily, scheduled CYCLOBENZAPRINE HCL 10 MG TABS 663482 CYCLOBENZAPRINE HCL Inactive ACCU-CHEK ROSA INVITR STRP use strips with device to check blood sugars 3 times daily ACCU-CHEK ROSA INVITR STRP GLUCOSE BLOOD Inactive ACCU-CHEK ROSA UZMA Use device to check blood sugars ACCU-CHEK ROSA UZMA BLOOD GLUCOSE MONITORING SUPPL Inactive CEFDINIR 300 MG CAPS by mouth twice a day CEFDINIR 300 MG CAPS 252717 CEFDINIR Inactive AZITHROMYCIN 500 MG SOLR 1 po q day AZITHROMYCIN 500 MG SOLR 581802 AZITHROMYCIN Inactive AMOXICILLIN 500 MG CAPS 2 po BID x 10 days AMOXICILLIN 500 MG CAPS 055393 AMOXICILLIN Inactive PENICILLIN V POTASSIUM 500 MG TABS 1 pill by mouth three times daily PENICILLIN V POTASSIUM 500 MG TABS 914415 PENICILLIN V POTASSIUM Inactive Immunizations Vaccine Administration [...] Fluvirin, Fluarix, Agriflu(>=18 yo)) Fluzone (>3 yrs.) [[id number]] Influenza, seasonal, injectable pneumococcal immunization administered Pneumovax [...] HGBA1C - Chemistry sodium, serum 131 mmol/L 038-893 7351/12/30 potassium, serum 5.0 mmol/L 3.5-5.2 chloride, serum 95 mmol/L 98-107 carbon dioxide, venous blood 26.7 mmol/L 21.0-32.0 blood glucose 112 mg/dL 65-110 calcium, serum 9.2 mg/dL 8.5-10.1 urea nitrogen, blood 12 mg/dL 7-18 creatinine, serum 1.10 mg/dL 0.60-1.30 hemoglobin A1C, blood, as % of total hemoglobin 5.8 % 4.3-6.0 Lab Report: Basic Metabolic Panel, HGBA1C, MICROALBUMIN - Chemistry sodium, serum 137 mmol/L 249-008 8957/05/19 potassium, serum 5.2 mmol/L 3.5-5.2 chloride, serum [...] microalbumin, urine 10 0-19 Lab Report: Chlamydia/GC APTIMA/01573, HIV-1/2 Agn/Dominga/77300, RPR (DX) W ... - Chemistry hepatitis B surface antigen NON-REACTIVE NON-REACTIVE Lab Report: Chlamydia/GC APTIMA/39690, HIV-1/2 Agn/Dominga/82042, RPR (DX) W ... - Lab chlamydia DNA probe NOT DETECTED NOT DETECTED Lab Report: Chlamydia/GC APTIMA/37131, HIV-1/2 Agn/Dominga/50914, RPR (DX) W ... - Microbiology Neisseria gonorrhoeae DNA probe NOT DETECTED NOT DETECTED Lab Report: Chlamydia/GC APTIMA/10641, HIV-1/2 Agn/Dominga/09591, RPR (DX) W ... - Serology rapid plasma reagin antibody titer NON-REACTIVE NON-REACTIVE Lab Report: Comp. Metabolic Panel - Chemistry sodium, serum 127 mmol/L 460-922 5679/10/27 potassium, serum 4.1 mmol/L 3.5-5.2 chloride, serum [...] CBC - Chemistry cholesterol, serum 131 mg/dL 552-801 4317/06/03 triglyceride, serum, fasting 383 mg/dL 30-200 HDL [...] mg/dL Encounters Code Encounter Date Provider Facility CPT-03323 Level 3 Est. Patient 09:34:56 CDT Alina Castaneda MD [facility] CPT-21147 Level 3 Est. Patient 21:40:19 CDT Mima Erazo APRN [facility] CPT-70203 Level 3 Est. Patient 09:26:40 CDT Marvel MARROQUIN [facility] CPT-64013 Level 3 Est. Patient 12:36:43 CDT Vanessa Hickey MD [facility] CPT-78699 Level 3 Est. Patient 12:57:49 CDT Vanessa Hickey MD [facility] CPT-97168 Level 3 Est. Patient 00:28:25 CDT Alina Castaneda MD [facility] CPT-16443 Level 2 Est. Patient 12:52:14 CDT Alina Castaneda MD [facility] CPT-22735 Level 3 Est. Patient 11:51:18 ACADEMIC SUPPORT ASSISTANT Alina Castaneda MD [facility] CPT-75051 Level 3 Est. Patient 10:09:22 ACADEMIC SUPPORT ASSISTANT Alina Castaneda MD [facility] CPT-36461 Level 3 Est. Patient 14:36:26 ACADEMIC SUPPORT ASSISTANT Marvel Araceli [facility]-91094 Level 3 Est. Patient 13:34:47 ACADEMIC SUPPORT ASSISTANT Alina Castaneda MD [facility]-19596 Level 3 Est. Patient 19:52:08 ACADEMIC SUPPORT ASSISTANT Alina Castaneda MD [facility]52580 Level 3 Est. Patient 10:01:51 ACADEMIC SUPPORT ASSISTANT Marvel Thurstonestela [facility]-53812 Level 3 Est. Patient 21:54:06 CDT Vanessa Hickey MD [facility]-12036 Level 3 Est. Patient 08:54:46 CDT Alina Castaneda MD [facility]52656 Level 3 Est. Patient 09:32:11 CDT Brookslashondanivia Araceli [facility]-97664 Level 3 Est. Patient 12:02:49 CDT Alina Castaneda MD [facility]-65473 Level 3 Est. Patient 19:17:33 CDT Alina Castaneda MD [facility]12357 Level 3 Est. Patient 13:19:10 CDT Brooksjohn Charles [facility]-96016 Level 3 Est. Patient 08:20:05 CDT Alina Castaneda MD [facility]74456 Level 3 Est. Patient 15:17:18 CDT Alina Castaneda MD [facility]76979 Level 3 Est. Patient 14:25:36 ACADEMIC SUPPORT ASSISTANT Marvel Araceli [facility]-40313 Level 3 Est. Patient 10:09:15 ACADEMIC SUPPORT ASSISTANT Marvel Araceli [facility]66640 Level 3 Est. Patient 21:28:43 CDT Alina Castaneda MD [facility]-49149 Level 3 Est. Patient 15:20:11 CDT Marvel Charles [facility]-12405 Level 4 Est. Patient 19:08:12 CDT Alina Castaneda MD [facility]-05206 Level 3 Est. Patient 15:06:39 CDT Marvel Charles [facility]-97652 Level 4 Est. Patient 17:48:15 CDT Alina Catsaneda MD [facility]-78556 Level 3 Est. Patient 14:53:49 CDT Alina Castaneda MD [facility]-97917 Level 3 Est. Patient 09:35:16 CDT Alina Castaneda MD [facility]-10108 Level 3 Est. Patient 12:23:22 CDT Alina Castaneda MD [facility]-82491 Level 3 Est. Patient 16:19:15 CDT Alina Castaneda MD [facility]-47014 Level 3 Est. Patient 21:39:56 ACADEMIC SUPPORT ASSISTANT Alina Castaneda MD [facility]-27072 Level 4 Est. Patient 14:12:56 ACADEMIC SUPPORT ASSISTANT Alina Castaneda MD [facility]-56695 Level 2 Est. Patient 15:34:57 ACADEMIC SUPPORT ASSISTANT Alina Castaneda MD [facility]-31725 Level 3 Est. Patient 12:17:04 ACADEMIC SUPPORT ASSISTANT Alina Castaneda MD [facility]-36266 Level 3 Est. Patient 09:18:18 ACADEMIC SUPPORT ASSISTANT Marvel Charles [facility]-55172 Level 2 Est. Patient 21:50:24 CDT Alina Castaneda MD [facility]-41155 Level 3 Est. Patient 09:17:28 CDT Marvel Charles [facility]-39126 Level 4 Est. Patient 18:54:02 CDT Alina Castaneda MD [facility]29125 Level 3 Est. Patient 10:47:10 CDT Alina Castaneda MD [facility]40279 Level 3 Est. Patient 09:22:20 CDT Marvel Charles [facility]-15320 Level 3 Est. Patient 16:39:43 CDT Marvel Charles [facility]-58904 Level 3 Est. Patient 16:05:16 CDT Alina Castaneda MD [facility]79954 Level 3 Est. Patient 00:29:15 CDT Alina Castaneda MD [facility]35968 Level 3 Est. Patient 10:49:22 ACADEMIC SUPPORT ASSISTANT Marvel Charles [facility]-47807 Level 3 Est. Patient 21:30:19 ACADEMIC SUPPORT ASSISTANT Alina Castaneda MD [facility]-78769 Level 4 Est. Patient 17:04:11 ACADEMIC SUPPORT ASSISTANT Marvel Charles [facility]-53017 Level 3 Est. Patient 15:34:11 ACADEMIC SUPPORT ASSISTANT Marvel hCarles [facility]-77871 Level 2 Est. Patient 12:51:58 ACADEMIC SUPPORT ASSISTANT Alina Castaneda MD [facility]82921 Level 3 Est. Patient 13:20:01 ACADEMIC SUPPORT ASSISTANT Alina Castaneda MD [facility]92892 Level 3 Est. Patient 09:23:35 CDT Alina Castaneda MD PhD [facility] Procedures Code Procedure Name Date Entry Date Standard Description CPT-26444 Bladder Scan 12:36:44 CDT CPT-93084 Bladder Scan 21:54:06 CDT CPT-G0008 Administration of Influenza Virus Vaccine 13:05:26 CDT CPT-01602 Fluzone Quadrivalent Intramuscular Suspension 0.5 ML 13: 05:26 CDT CPT-98941 Administration single or combination vaccine inc oral 11 :49:51 CDT CPT-82691 Pneumovax 11:49:51 CDT CPT-41051 Ribs unilateral 2V 12:37:22 ACADEMIC SUPPORT ASSISTANT CPT-92963 Chest 2V Frontal and Lat 17:15:26 CDT CPT-96343 Abx/Therapy Injection 18:54:02 CDT CPT-J0696 Rocephin 1000 mg (Ceftriaxone) 16:00:32 CDT CPT-69219 Chest 2V Frontal and Lat 15:26:45 CDT CPT-41470 Chest 2V Frontal and Lat 10:23:27 CDT CPT-69039 Venipuncture Draw Fee 10:11:00 CDT CPT-84927 Administration single or combination vaccine inc oral 11 :56:38 CDT CPT-93453 Influenza split virus > age 3 11:56:38 CDT CPT-38001 Venipuncture Draw Fee 08:49:54 ACADEMIC SUPPORT ASSISTANT CPT-53626 EKG Trac and Interp 17:54:19 ACADEMIC SUPPORT ASSISTANT
--- OUTSIDE RECORDS SUMMARY | 2018-07-02 16:25 | XMS REPORT | Clinical Summary ---
[...] unspecified RIB PAIN, RIGHT SIDED 786.50 Resolved Ailna Castaneda MD PhD Unspecified chest pain SKIN 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 Kacey [employer] Benign paroxysmal positional vertigo Vertigo, benign [...] 10u lunch and supper INSULIN LISPRO (HUMAN) 10079200550 Active Marvel MARROQUIN Active LATUDA 120 MG ORAL TABS 1 pill by mouth nightly LURASIDONE HCL 88710226981 Active Alina Castaneda MD PhD Active COLACE 100 MG CAPS 1 pill by mouth twice daily, for constipation DOCUSATE SODIUM 72540192328 Active Alina Castaneda MD PhD Active TRUETEST TEST STRP check blood sugars 3x/day GLUCOSE BLOOD 65034061528 Active Marvel Mackenzieglari [employer] Active ACCU-CHEK ROSA UZMA Use device to check blood sugars BLOOD GLUCOSE MONITORING SUPPL 61694910494 No Longer Active Marvel Mackenzieglestela MENDOZAP Active ACCU-CHEK ROSA INVITR STRP use strips with device to check blood sugars 3 times daily GLUCOSE BLOOD 80680895168 No Longer Active Marvel MARROQUIN Active VERAPAMIL HCL ER 180 MG ORAL CR-TABS 1 pill by mouth twice daily, for migraine prevention VERAPAMIL HCL 12323386386 Active Alina Castaneda MD PhD Active CYCLOBENZAPRINE HCL 10 MG TABS 1 tablet by mouth three times daily, scheduled CYCLOBENZAPRINE HCL 52040940068 No Longer Active Alina Castaneda MD PhD Active HUMALOG 100 UNIT/ML SOLN Take 20 units with breakfast, 10u with lunch and suppetr. INSULIN LISPRO (HUMAN) 45202310335 No Longer Active Alina Castaneda MD PhD Active TRUETEST TEST STRP check sugars 4x/day GLUCOSE BLOOD 86602678722 No Longer Active Alina Castaneda MD PhD Active MORPHINE SULFATE 30 MG TABS 1 pill by mouth twice daily, for pain MORPHINE SULFATE 23828270503 Active Mason Loredo MD Active ACYCLOVIR 400 MG ORAL TABS 1 pill three times daily x 5 days, for cold sore outbreak ACYCLOVIR 61381368499 No Longer Active Alina Castaneda MD PhD Active PENICILLIN V POTASSIUM 500 MG TABS 1 pill by mouth three times daily PENICILLIN V POTASSIUM 39793224430 No Longer Active Alina Castaneda MD PhD Active UROXATRAL 10 MG [id number]-[id number] Take 1 tablet by mouth daily ALFUZOSIN HCL 84425286166 No Longer Active Alina Castaneda MD PhD Active THIOTHIXENE 5 MG CAPS by mouth twice a day THIOTHIXENE 14319060322 No Longer Active Alina Castaneda MD PhD Active ZYPREXA 7.5 MG TABS 1 at HS OLANZAPINE 37065390988 No Longer Active Alina Castaneda MD PhD Active LEVEMIR 100 UNIT/ML SOLN Take 70 u at 7-8pm INSULIN DETEMIR 76231487141 Active Maliheh Ziglari [employer] Active BD INSULIN SYRINGE 28G X 1/2" 1 ML MISC 1 four times per day INSULIN SYRINGE-NEEDLE U-100 25770334607 Active Maleh Ziglari [employer] Active TOLTERODINE TARTRATE 2 MG TABS 1 pill twice daily, for bladder TOLTERODINE TARTRATE 76991389959 Active Alina Castaneda MD PhD Active DETROL LA 4 MG [id number] Take 1 tablet by mouth daily TOLTERODINE TARTRATE 21012322258 No Longer Active Alina Castaneda MD PhD Active HYDROCODONE-ACETAMINOPHEN 5-325 MG TABS 2 tabs by mouth three times daily as needed for pain HYDROCODONE-ACETAMINOPHEN 80526058355 Active Alina Castaneda MD PhD Active TERESE CONTOUR TEST STRP monitor blood sugars 3x/day GLUCOSE BLOOD 81018129962 No Longer Active Alina Castaneda MD PhD Active EQL TRUETEST TEST STRP Test blood sugar TID GLUCOSE BLOOD 54048425986 No Longer Active Alina Castaneda MD PhD Active FLUTICASONE PROPIONATE 50 MCG/ACT SUSP 2 sprays each nostril qDay x 30 days FLUTICASONE PROPIONATE 10892716532 No Longer Active Alina Castaneda MD PhD Active IBUPROFEN 200 MG TABS 1 Q 6 hr. PRN IBUPROFEN 72427666852 No Longer Active Alina Castaneda MD PhD Active NIACIN ER 500 MG CR-TABS 4 qHS (for triglycerides) NIACIN 66451092918 No Longer Active Alina Castaneda MD PhD Active ALFUZOSIN HCL ER 10 MG [id number] 1 tablet daily ALFUZOSIN HCL 46998946552 Active Vanessa Hickey MD Active CLONAZEPAM 1 MG TABS 1 pill by mouth three times daily CLONAZEPAM 10312926129 Active Alina Castaneda MD PhD Active LOVAZA 1 GM CAPS 4 daily (for triglycerides) ATYRV-1-EVAL ETHYL ESTERS 90629492582 Active Mao Rodriguez MD Active SAPHRIS 5 MG SUBL by mouth twice a day ASENAPINE MALEATE 88869496216 No Longer Active Marvel MARROQUIN Active ACETAMINOPHEN 500 MG TABS 2 Q 6 hr. PRN ACETAMINOPHEN 00016079140 No Longer Active Marvel Gurdeepglestela [employer] Active ORPHENADRINE CITRATE ER 100 MG [id number] 1 every 12 hr. as needed ORPHENADRINE CITRATE 36065920097 No Longer Active Alina Castaneda MD PhD Active NIACIN CR 500 MG CR-TABS 2 qHS NIACIN 78285844374 No Longer Active Alina Castaneda MD PhD Active AMOXICILLIN 500 MG CAPS 2 po BID x 10 days AMOXICILLIN 99109356830 No Longer Active Alina Castaneda MD PhD Active HYDROCODONE-ACETAMINOPHEN 7.5-325 MG TABS 1 four times a day as needed for pain HYDROCODONE-ACETAMINOPHEN 41495070103 No Longer Active Alina Castaneda MD PhD Active METFORMIN HCL ER 500 MG WA93H-IPB Take three tablets by mouth everyday METFORMIN HCL 06939914970 Active Brookslashondanivia Araceli MENDOZAP Active DOXEPIN HCL 10 MG CAPS Take 1 tablet by mouth daily DOXEPIN HCL 63887404179 No Longer Active Salina Han [facility] Active NAVANE 10 MG CAPS 1/2 tablet twice a day THIOTHIXENE No Longer Active Salina Han [facility] Active CYCLOBENZAPRINE HCL 10 MG TABS 1/2 tablet by mouth every 8 hours as needed for muscle spasms CYCLOBENZAPRINE HCL 46999701689 No Longer Active Alina Castaneda MD PhD Active BACTROBAN 2 % CREAM apply to ear and nose twice daily MUPIROCIN CALCIUM 18858910791 No Longer Active Alina Castaneda MD PhD Active HYDROCODONE-ACETAMINOPHEN 5-325 MG TABS take one tablet by mouth every four hours as needed for pain HYDROCODONE-ACETAMINOPHEN 51107902779 No Longer Active Alina Castaneda MD PhD Active ZOLPIDEM TARTRATE 10 MG TABS take at bedtime ZOLPIDEM TARTRATE 97967999305 Active Alina Castaneda MD PhD Active ZYPREXA 5 MG TABS take one tablet by mouth every evening OLANZAPINE 28271936947 No Longer Active Alina Castaneda MD PhD Active ALBUTEROL SULFATE 0.083 % NEBU SOLN one vial per nebulizer TID and PRN cough/ soa ALBUTEROL SULFATE 25466344374 No Longer Active Alina Castaneda MD PhD Active GUAIFENESIN 600 MG ZR80A-ZNC 1 tablet by mouth twice daily if needed for cough GUAIFENESIN 16362470829 No Longer Active Marvel MARROQUIN Active AZITHROMYCIN 500 MG SOLR 1 po q day AZITHROMYCIN 75207719640 No Longer Active Alina Castaneda MD PhD Active METOPROLOL SUCCINATE 100 MG BX20R-LFR 1 by mouth daily for blood pressure METOPROLOL SUCCINATE 67788744740 Active Alina Castaneda MD PhD Active PROMETHAZINE-CODEINE 6.25-10 MG/5ML SYRP 1 tsp po q 6 hours prn cough PROMETHAZINE-CODEINE 39805962822 No Longer Active Alina Castaneda MD PhD Active CEFDINIR 300 MG CAPS by mouth twice a day CEFDINIR 41385394043 No Longer Active Alina Castaneda MD PhD Active METFORMIN HCL 500 MG TJ45D-WRF Take 3 tablets by mouth everyday METFORMIN HCL 06521527067 No Longer Active Alina Castaneda MD PhD Active LEVEMIR 100 UNIT/ML SOLN 90 units SQ qHS INSULIN DETEMIR 46546810806 No Longer Active Marvel MARROQUIN Active TOPROL XL 100 MG LQ47W-GRA 1 @ HS METOPROLOL SUCCINATE 04507230411 No Longer Active Marvel MARROQUIN Active ALLOPURINOL 300 MG TABS Take one by mouth daily ALLOPURINOL 76765537002 Active Alina Castaneda MD PhD Active ZYPREXA 10 MG TABS Take one by mouth daily OLANZAPINE 24891761579 No Longer Active Alina Castaneda MD PhD Active NOVOLOG 100 UNIT/ML SOLN 40 units with every meal INSULIN ASPART 80681621587 No Longer Active Alina Castaneda MD PhD Active VERAPAMIL HCL CR 120 MG TAB CR 1 qPM VERAPAMIL HCL 30877824362 No Longer Active Salina Han RMA Active ZYPREXA 15 MG TABS Take 1 tablet by mouth daily OLANZAPINE 67636174258 No Longer Active Marvel Araceli [employer] Active LISINOPRIL 20 MG TABS 1 BID LISINOPRIL 88606380322 Active Alina Castaneda MD PhD Active ALBUTEROL SULFATE (2.5 MG/3ML) 0.083% NEBU 1 neb tid and prn cough ALBUTEROL SULFATE 18963630510 No Longer Active Alina Castaneda MD PhD Active FLUVOXAMINE MALEATE 100 MG TABS Take one (1) tablet by mouth am, 1/2 at noon, 1 pm FLUVOXAMINE MALEATE 49991077754 Active Alina Castaneda MD PhD Active TRAVATAN Z 0.004 % SOLN 1 gtt each eye daily TRAVOPROST 92282880680 Active CRYSTAL Suarez Active LANTUS 100 UNIT/ML SOLN 60 units sq q hs INSULIN GLARGINE 76748907050 No Longer Active CRYSTAL Suarez Active ALBUTEROL SULFATE (2.5 MG/3ML) 0.083% NEBU 1 neb tid and prn cough ALBUTEROL SULFATE (2.5 MG/3ML) 0.083% NEBU 848268 ALBUTEROL SULFATE Inactive ZYPREXA 15 MG TABS Take 1 tablet by mouth daily ZYPREXA 15 MG TABS 904290 OLANZAPINE Inactive VERAPAMIL HCL CR 120 MG TAB CR 1 qPM VERAPAMIL HCL CR 120 MG TAB CR VERAPAMIL HCL Inactive ZYPREXA 10 MG TABS Take one by mouth daily ZYPREXA 10 MG TABS 268560 OLANZAPINE Inactive TOPROL XL 100 MG [id number] 1 @ HS TOPROL XL 100 MG MZ27H-LQP METOPROLOL SUCCINATE Inactive LEVEMIR 100 UNIT/ML SOLN 90 units SQ qHS LEVEMIR 100 UNIT/ML SOLN INSULIN DETEMIR Inactive PROMETHAZINE-CODEINE 6.25-10 MG/5ML SYRP 1 tsp po q 6 hours prn cough PROMETHAZINE-CODEINE 6.25-10 MG/5ML SYRP 159619 PROMETHAZINE- CODEINE Inactive GUAIFENESIN 600 MG WO44M-XUY 1 tablet by mouth twice daily if needed for cough GUAIFENESIN 600 MG CB70P-FIY GUAIFENESIN Inactive ALBUTEROL SULFATE 0.083 % NEBU SOLN one vial per nebulizer TID and PRN cough/ soa ALBUTEROL SULFATE 0.083 % NEBU SOLN 407566 ALBUTEROL SULFATE Inactive ZYPREXA 5 MG TABS take one tablet by mouth every evening ZYPREXA 5 MG TABS 867083 OLANZAPINE Inactive HYDROCODONE-ACETAMINOPHEN 5-325 MG TABS take one tablet by mouth every four hours as needed for pain HYDROCODONE-ACETAMINOPHEN 5-325 MG TABS 540333 HYDROCODONE-ACETAMINOPHEN Inactive BACTROBAN 2 % CREAM apply to ear and nose twice daily BACTROBAN 2 % CREAM 829039 MUPIROCIN CALCIUM Inactive CYCLOBENZAPRINE HCL 10 MG TABS 1/2 tablet by mouth every 8 hours as needed for muscle spasms CYCLOBENZAPRINE HCL 10 MG TABS 488806 CYCLOBENZAPRINE HCL Inactive NAVANE 10 MG CAPS 1/2 tablet twice a day NAVANE 10 MG CAPS THIOTHIXENE Inactive DOXEPIN HCL 10 MG CAPS Take 1 tablet by mouth daily DOXEPIN HCL 10 MG CAPS 9297086 DOXEPIN HCL Inactive HYDROCODONE-ACETAMINOPHEN 7.5-325 MG TABS 1 four times a day as needed for pain HYDROCODONE-ACETAMINOPHEN 7.5-325 MG TABS 758596 HYDROCODONE-ACETAMINOPHEN Inactive NIACIN CR 500 MG CR-TABS 2 qHS NIACIN CR 500 MG CR- TABS NIACIN Inactive ORPHENADRINE CITRATE ER 100 MG [id number]-OHQ 1 every 12 hr. as needed ORPHENADRINE CITRATE ER 100 MG [id number]-VTB ORPHENADRINE CITRATE Inactive ACETAMINOPHEN 500 MG TABS 2 Q 6 hr. PRN ACETAMINOPHEN 500 MG TABS 442331 ACETAMINOPHEN Inactive SAPHRIS 5 MG SUBL by mouth twice a day SAPHRIS 5 MG SUBL ASENAPINE MALEATE Inactive NIACIN ER 500 MG CR-TABS 4 qHS (for triglycerides) NIACIN ER 500 MG CR-TABS NIACIN Inactive IBUPROFEN 200 MG TABS 1 Q 6 hr. PRN IBUPROFEN 200 MG TABS 417786 IBUPROFEN Inactive FLUTICASONE PROPIONATE 50 MCG/ACT SUSP 2 sprays each nostril qDay x 30 days FLUTICASONE PROPIONATE 50 MCG/ACT SUSP 335348 FLUTICASONE PROPIONATE Inactive EQL TRUETEST TEST STRP Test blood sugar TID EQL TRUETEST TEST STRP GLUCOSE BLOOD Inactive TERESE CONTOUR TEST STRP monitor blood sugars 3x/day TERESE CONTOUR TEST STRP GLUCOSE BLOOD Inactive DETROL LA 4 MG [id number] Take 1 tablet by mouth daily DETROL LA 4 MG [id number]-ZVO TOLTERODINE TARTRATE Inactive ZYPREXA 7.5 MG TABS 1 at HS ZYPREXA 7.5 MG TABS 367398 OLANZAPINE Inactive THIOTHIXENE 5 MG CAPS by mouth twice a day THIOTHIXENE 5 MG CAPS 293922 THIOTHIXENE Inactive UROXATRAL 10 MG [id number]-YWS Take 1 tablet by mouth daily UROXATRAL 10 MG [id number] ALFUZOSIN HCL Inactive ACYCLOVIR 400 MG ORAL TABS 1 pill three times daily x 5 days, for cold sore outbreak ACYCLOVIR 400 MG ORAL TABS 050855 ACYCLOVIR Inactive TRUETEST TEST STRP check sugars 4x/day TRUETEST TEST STRP GLUCOSE BLOOD Inactive HUMALOG 100 UNIT/ML SOLN Take 20 units with breakfast, 10u with lunch and suppetr. HUMALOG 100 UNIT/ML SOLN INSULIN LISPRO ( HUMAN) Inactive CYCLOBENZAPRINE HCL 10 MG TABS 1 tablet by mouth three times daily, scheduled CYCLOBENZAPRINE HCL 10 MG TABS 103073 CYCLOBENZAPRINE HCL Inactive ACCU-CHEK ROSA INVITR STRP use strips with device to check blood sugars 3 times daily ACCU-CHEK ROSA INVITR STRP GLUCOSE BLOOD Inactive ACCU-CHEK ROSA UZMA Use device to check blood sugars ACCU-CHEK ROSA UZMA BLOOD GLUCOSE MONITORING SUPPL Inactive CEFDINIR 300 MG CAPS by mouth twice a day CEFDINIR 300 MG CAPS 898234 CEFDINIR Inactive AZITHROMYCIN 500 MG SOLR 1 po q day AZITHROMYCIN 500 MG SOLR 988318 AZITHROMYCIN Inactive AMOXICILLIN 500 MG CAPS 2 po BID x 10 days AMOXICILLIN 500 MG CAPS 224998 AMOXICILLIN Inactive PENICILLIN V POTASSIUM 500 MG TABS 1 pill by mouth three times daily PENICILLIN V POTASSIUM 500 MG TABS 725161 PENICILLIN V POTASSIUM Inactive Immunizations Vaccine Administration [...] Fluvirin, Fluarix, Agriflu(>=18 yo)) Fluzone (>3 yrs.) [[id number]] Influenza, seasonal, injectable pneumococcal immunization administered Pneumovax [...] HGBA1C - Chemistry sodium, serum 130 mmol/L 913-397 7073/06/09 potassium, serum 4.0 mmol/L 3.5-5.2 chloride, serum 92 mmol/L 98-107 carbon dioxide, venous blood 22.1 mmol/L 21.0-32.0 blood glucose 60 mg/dL 65-110 calcium, serum 9.5 mg/dL 8.5-10.1 urea nitrogen, blood 14 mg/dL 7-18 creatinine, serum 1.30 mg/dL 0.60-1.30 hemoglobin A1C, blood, as % of total hemoglobin 6.0 % 4.3-6.0 sodium, serum 131 mmol/L 240-126 9211/12/30 potassium, serum 5.0 mmol/L 3.5-5.2 chloride, serum 95 mmol/L 98-107 carbon dioxide, venous blood 26.7 mmol/L 21.0-32.0 blood glucose 112 mg/dL 65-110 calcium, serum 9.2 mg/dL 8.5-10.1 urea nitrogen, blood 12 mg/dL 7-18 creatinine, serum 1.10 mg/dL 0.60-1.30 hemoglobin A1C, blood, as % of total hemoglobin 5.8 % 4.3-6.0 Lab Report: Basic Metabolic Panel, HGBA1C, MICROALBUMIN - Chemistry calcium, serum 9.6 mg/dL 8.5-10.1 urea nitrogen, blood 16 mg/dL 7-18 creatinine, serum 1.10 mg/dL 0.60-1.30 hemoglobin A1C, blood, as % of total hemoglobin 6.2 % 4.3-6.0 albumin/creatinine ratio, urine < 30 mg/g mg/g{creat} 0-29 blood glucose 199 mg/dL 65-110 carbon dioxide, venous blood 22.5 mmol/L 21.0-32.0 chloride, serum 102 mmol/L 98-107 potassium, serum 5.2 mmol/L 3.5-5.2 sodium, serum 137 mmol/L 136-145 Lab Report: Basic Metabolic Panel, HGBA1C, MICROALBUMIN - Lab microalbumin, urine 10 0-19 Lab Report: Comp. Metabolic Panel - Chemistry sodium, serum 127 mmol/L 383-795 9324/10/27 potassium, serum 4.1 mmol/L 3.5-5.2 chloride, serum [...] mg/dL Encounters Code Encounter Date Provider Facility CPT-75524 Level 3 Est. Patient 21:40:19 [facility] Patient 09:26:40 CDT Marvel MARROQUIN [facility] CPT-17400 Level 3 Est. Patient 12:36:43 CDT Vanessa Hickey MD [facility] CPT-51982 Level 3 Est. Patient 12:57:49 CDT Vanessa Hickey MD [facility] CPT-46842 Level 3 Est. Patient 00:28:25 CDT Alina Castaneda MD PhD [facility] CPT-66986 Level 2 Est. Patient 12:52:14 CDT Alina Castaneda MD [facility]-62559 Level 3 Est. Patient 11:51:18 CHASER TAR Alina Castaneda MD [facility]-47080 Level 3 Est. Patient 10:09:22 CHASER TAR Alina Castaneda MD [facility]-43313 Level 3 Est. Patient 14:36:26 CHASER TAR Marvel [facility]-19940 Level 3 Est. Patient 13:34:47 CHASER TAR Alina Castaneda MD [facility]-03079 Level 3 Est. Patient 19:52:08 CHASER TAR Alina Castaneda MD [facility]-66873 Level 3 Est. Patient 10:01:51 CHASER TAR Marvel [facility]-53084 Level 3 Est. Patient 21:54:06 CDT Vanessa Hickey MD [facility]-42525 Level 3 Est. Patient 08:54:46 CDT Alina Castaneda MD [facility]-09448 Level 3 Est. Patient 09:32:11 CDT Marvel [facility]-44235 Level 3 Est. Patient 12:02:49 CDT Alina Castaneda MD [facility]-80865 Level 3 Est. Patient 19:17:33 CDT Alina Castaneda MD [facility]-34882 Level 3 Est. Patient 13:19:10 CDT Marvel [facility]-54559 Level 3 Est. Patient 08:20:05 CDT Alina Castaneda MD [facility]-64235 Level 3 Est. Patient 15:17:18 CDT Alina Castaneda MD [facility]-75514 Level 3 Est. Patient 14:25:36 CHASER TAR Marvel [facility]-81412 Level 3 Est. Patient 10:09:15 CHASER TAR Marvel [facility]-11280 Level 3 Est. Patient 21:28:43 CDT Alina Castaneda MD [facility]-59973 Level 3 Est. Patient 15:20:11 [facility]-45054 Level 4 Est. Patient 19:08:12 CDT Alina Castaneda MD [facility]-99498 Level 3 Est. [facility] 15:06:39 [facility]-42461 Level 4 Est. Patient 17:48:15 CDT Alina Castaneda MD [facility]-52255 Level 3 Est. Patient 14:53:49 CDT Alina Castaneda MD [facility]-05033 Level 3 Est. Patient 09:35:16 CDT Alina Castaneda MD [facility]-99714 Level 3 Est. Patient 12:23:22 CDT Alina Castaneda MD [facility]-46072 Level 3 Est. Patient 16:19:15 CDT Alina Castaneda MD [facility]-89939 Level 3 Est. Patient 21:39:56 CHASER TAR Alina Castaneda MD [facility]63647 Level 4 Est. Patient 14:12:56 CHASER TAR Alina Castaneda MD [facility]-33773 Level 2 Est. Patient 15:34:57 CHASER TAR Alina Castaneda MD [facility]-03388 Level 3 Est. Patient 12:17:04 CHASER TAR Alina Castaneda MD [facility]-81823 Level 3 Est. Patient 09:18:18 CHASER TAR Marvel [facility]-88990 Level 2 Est. Patient 21:50:24 CDT Alina Castaneda MD [facility]66826 Level 3 Est. Patient 09:17:28 CDT Marvel [facility]-10211 Level 4 Est. Patient 18:54:02 CDT Alina Castaneda MD [facility]92915 Level 3 Est. Patient 10:47:10 CDT Alina Castaneda MD [facility]-19155 Level 3 Est. Patient 09:22:20 CDT Marvel [facility]-37303 Level 3 Est. Patient 16:39:43 CDT Marvel [facility]-34488 Level 3 Est. Patient 16:05:16 CDT Alina Castaneda MD [facility]-52912 Level 3 Est. Patient 00:29:15 CDT Alina Castaneda MD [facility]64531 Level 3 Est. Patient 10:49:22 CHASER TAR Marvel [facility]-21589 Level 3 Est. Patient 21:30:19 CHASER TAR Alina Castaneda MD [facility]74183 Level 4 Est. Patient 17:04:11 CHASER TAR Marvel [facility]-69410 Level 3 Est. Patient 15:34:11 CHASER TAR [facility]85 Level 2 Est. Patient 12:51:58 CHASER TAR Alina Castaneda MD PhD [facility] CPT-78428 Level 3 Est. Patient 13:20:01 CHASER TAR Alina Castaneda MD PhD [facility] CPT-59957 Level 3 Est. Patient 09:23:35 CDT Alina Castaneda MD PhD [facility] Procedures Code Procedure Name Date Entry Date Standard Description CPT-32889 Bladder Scan 12:36:44 CDT CPT-57359 Bladder Scan 21:54:06 CDT CPT-G0008 Administration of Influenza Virus Vaccine 13:05:26 CDT CPT-86857 Fluzone Quadrivalent Intramuscular Suspension 0.5 ML 13: 05:26 CDT CPT-39401 Administration single or combination vaccine inc oral 11 :49:51 CDT CPT-29130 Pneumovax 11:49:51 CDT CPT-90952 Ribs unilateral 2V 12:37:22 CHASER TAR CPT-45725 Chest 2V Frontal and Lat 17:15:26 CDT CPT-84257 Abx/Therapy Injection 18:54:02 CDT CPT-J0696 Rocephin 1000 mg (Ceftriaxone) 16:00:32 CDT CPT-43659 Chest 2V Frontal and Lat 15:26:45 CDT CPT-70437 Chest 2V Frontal and Lat 10:23:27 CDT CPT-51448 Venipuncture Draw Fee 10:11:00 CDT CPT-57047 Administration single or combination vaccine inc oral 11 :56:38 CDT CPT-33496 Influenza split virus > age 3 11:56:38 CDT CPT-83986 Venipuncture Draw Fee 08:49:54 CHASER TAR CPT-69746 EKG Trac and Interp 17:54:19 CHASER TAR
--- OUTSIDE RECORDS SUMMARY | 2018-07-02 16:27 | XMS REPORT | Clinical Summary ---
Author Author Admin, TERELL Organization [facility] Address Unknown Phone Unavailable Allergies, Adverse Reactions, [...] mouth three times daily for pain HYDROCODONE-ACETAMINOPHEN 05524448575 Active Alina Castaneda MD PhD Active HUMALOG KWIKPEN 100 UNIT/ML SC SOPN 20 units with breakfast, 10 units with lunch, 10 units with dinner, for diabetes INSULIN LISPRO (HUMAN ) 04428937291 Active Alina Castaneda MD PhD Active LEVEMIR FLEXTOUCH 100 UNIT/ML SC SOPN 70 units SQ each evening, for diabetes INSULIN DETEMIR 08784307945 Active Alina Castaneda MD PhD Active LATUDA 120 MG ORAL TABS 1 pill by mouth nightly LURASIDONE HCL 09961932758 Active Alina Castaneda MD PhD Active COLACE 100 MG CAPS 1 pill by mouth twice daily, for constipation DOCUSATE SODIUM 58549014293 Active Alina Castaneda MD PhD Active TRUETEST TEST STRP check blood sugars 3x/day GLUCOSE BLOOD 19687065206 Active Maljohn Ziglari 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 Active ACCU-CHEK ROSA UZMA Use device to check blood sugars BLOOD GLUCOSE MONITORING SUPPL 48827373695 No Longer Active [employer] Ziglari 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 MANAGER Active ACCU-CHEK ROSA INVITR STRP use strips with device to check blood sugars 3 times daily GLUCOSE BLOOD 45134842964 No Longer Active [employer] 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 MANAGER Active VERAPAMIL HCL ER 180 MG ORAL CR-TABS 1 pill by mouth twice daily, for migraine prevention VERAPAMIL HCL 29469691398 Active Alina Castaneda MD PhD Active CYCLOBENZAPRINE HCL 10 MG TABS 1 tablet by mouth three times daily, scheduled CYCLOBENZAPRINE HCL 07388120214 No Longer Active Alina Castaneda MD PhD Active HUMALOG 100 UNIT/ML SOLN Take 20 units with breakfast, 10u with lunch and suppetr. INSULIN LISPRO (HUMAN) 70967519966 No Longer Active Alina Castaneda MD PhD Active TRUETEST TEST STRP check sugars 4x/day GLUCOSE BLOOD 24553421875 No Longer Active Alina Castaneda MD PhD Active MORPHINE SULFATE 30 MG TABS 1 pill by mouth twice daily, for pain MORPHINE SULFATE 37326752245 Active Alina Castaneda MD PhD Active ACYCLOVIR 400 MG ORAL TABS 1 pill three times daily x 5 days, for cold sore outbreak ACYCLOVIR 27464342944 No Longer Active Alina Castaneda MD PhD Active PENICILLIN V POTASSIUM 500 MG TABS 1 pill by mouth three times daily PENICILLIN V POTASSIUM 52317348655 No Longer Active Alina Castaneda MD PhD Active UROXATRAL 10 MG [id number] Take 1 tablet by mouth daily ALFUZOSIN HCL 63400469670 No Longer Active Alina Castaneda MD PhD Active THIOTHIXENE 5 MG CAPS by mouth twice a day THIOTHIXENE 46706497418 No Longer Active Alina Castaneda MD PhD Active ZYPREXA 7.5 MG TABS 1 at HS OLANZAPINE 49297584292 No Longer Active Alina Castaneda MD PhD Active BD INSULIN SYRINGE 28G X 1/2" 1 ML MISC 1 four times per day INSULIN SYRINGE-NEEDLE U-100 46720429456 Active Marvel Charles [facility] Active TOLTERODINE TARTRATE 2 MG TABS 1 pill twice daily, for bladder TOLTERODINE TARTRATE 81982336398 Active Alina Castaneda MD PhD Active DETROL LA 4 MG [id number] Take 1 tablet by mouth daily TOLTERODINE TARTRATE 88215546812 No Longer Active Alina Castaneda MD PhD Active TERESE CONTOUR TEST STRP monitor blood sugars 3x/day GLUCOSE BLOOD 89461877008 No Longer Active Alina Castaneda MD PhD Active EQL TRUETEST TEST STRP Test blood sugar TID GLUCOSE BLOOD 68206446684 No Longer Active Alina Castaneda MD PhD Active FLUTICASONE PROPIONATE 50 MCG/ACT SUSP 2 sprays each nostril qDay x 30 days FLUTICASONE PROPIONATE 57027482767 No Longer Active Alina Castaneda MD PhD Active IBUPROFEN 200 MG TABS 1 Q 6 hr. PRN IBUPROFEN 70892758777 No Longer Active Alina Castaneda MD PhD Active NIACIN ER 500 MG CR-TABS 4 qHS (for triglycerides) NIACIN 24229100743 No Longer Active Alina Castaneda MD PhD Active ALFUZOSIN HCL ER 10 MG [id number] 1 tablet daily ALFUZOSIN HCL 94512191131 Active Vanessa Hickey MD Active CLONAZEPAM 1 MG TABS 1 pill by mouth three times daily CLONAZEPAM 14316462205 Active Alina Castaneda MD PhD Active LOVAZA 1 GM CAPS 4 daily (for triglycerides) QQAHH-3-OTNS ETHYL ESTERS 83252788062 Active Alina Castaneda MD PhD Active SAPHRIS 5 MG SUBL by mouth twice a day ASENAPINE MALEATE 92959819409 No Longer Active Marvel MARROQUIN Active ACETAMINOPHEN 500 MG TABS 2 Q 6 hr. PRN ACETAMINOPHEN 43190232890 No Longer Active Marvel MARROQUIN Active ORPHENADRINE CITRATE ER 100 MG [id number] 1 every 12 hr. as needed ORPHENADRINE CITRATE 26747793298 No Longer Active Alina Castaneda MD PhD Active NIACIN CR 500 MG CR-TABS 2 qHS NIACIN 29079815789 No Longer Active Alina Castaneda MD PhD Active AMOXICILLIN 500 MG CAPS 2 po BID x 10 days AMOXICILLIN 27376796279 No Longer Active Alina Castaneda MD PhD Active HYDROCODONE-ACETAMINOPHEN 7.5-325 MG TABS 1 four times a day as needed for pain HYDROCODONE-ACETAMINOPHEN 67493661549 No Longer Active Alina Castaneda MD PhD Active METFORMIN HCL ER 500 MG [id number]-CKF Take three tablets by mouth everyday METFORMIN HCL 52347894656 Active Marvel Ziglari 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 MANAGER Active DOXEPIN HCL 10 MG CAPS Take 1 tablet by mouth daily DOXEPIN HCL 55123132087 No Longer Active Salina Emely [facility] Active NAVANE 10 MG CAPS 1/2 tablet twice a day THIOTHIXENE No Longer Active Salina Han [facility] Active CYCLOBENZAPRINE HCL 10 MG TABS 1/2 tablet by mouth every 8 hours as needed for muscle spasms CYCLOBENZAPRINE HCL 39632411270 No Longer Active Alina Castaneda MD PhD Active BACTROBAN 2 % CREAM apply to ear and nose twice daily MUPIROCIN CALCIUM 15877278307 No Longer Active Alina Castaneda MD PhD Active HYDROCODONE-ACETAMINOPHEN 5-325 MG TABS take one tablet by mouth every four hours as needed for pain HYDROCODONE-ACETAMINOPHEN 40402496273 No Longer Active Alina Castaneda MD PhD Active ZOLPIDEM TARTRATE 10 MG TABS take at bedtime ZOLPIDEM TARTRATE 46997907451 Active Alina Castaneda MD PhD Active ZYPREXA 5 MG TABS take one tablet by mouth every evening OLANZAPINE 89300906032 No Longer Active Alina Castaneda MD PhD Active ALBUTEROL SULFATE 0.083 % NEBU SOLN one vial per nebulizer TID and PRN cough/ soa ALBUTEROL SULFATE 79615981424 No Longer Active Alina Castaneda MD PhD Active GUAIFENESIN 600 MG KZ13L-[id number] 1 tablet by mouth twice daily if needed for cough GUAIFENESIN 29306658142 No Longer Active Marvel EMNDOZAP Active AZITHROMYCIN 500 MG SOLR 1 po q day AZITHROMYCIN 92351315051 No Longer Active Alina Castaneda MD PhD Active METOPROLOL SUCCINATE 100 MG [id number]-ZBU 1 by mouth daily for blood pressure METOPROLOL SUCCINATE 30011489336 Active Alina Castaneda MD PhD Active PROMETHAZINE-CODEINE 6.25-10 MG/5ML SYRP 1 tsp po q 6 hours prn cough PROMETHAZINE-CODEINE 27505922370 No Longer Active Alina Castaneda MD PhD Active CEFDINIR 300 MG CAPS by mouth twice a day CEFDINIR 26377615780 No Longer Active Alina Castaneda MD PhD Active METFORMIN HCL 500 MG YG29L-WKA Take 3 tablets by mouth everyday METFORMIN HCL 89874212613 No Longer Active Alina Castaneda MD PhD Active LEVEMIR 100 UNIT/ML SOLN 90 units SQ qHS INSULIN DETEMIR 75749370816 No Longer Active Marvel MARROQUIN Active TOPROL XL 100 MG [id number]-JHU 1 @ HS METOPROLOL SUCCINATE 68468563845 No Longer Active Marvel MARROQUIN Active ALLOPURINOL 300 MG TABS Take one by mouth daily ALLOPURINOL 20339577664 Active Alina Castaneda MD PhD Active ZYPREXA 10 MG TABS Take one by mouth daily OLANZAPINE 15438823031 No Longer Active Alina Castaneda MD PhD Active NOVOLOG 100 UNIT/ML SOLN 40 units with every meal INSULIN ASPART 84759706738 No Longer Active Ailna Castaneda MD PhD Active VERAPAMIL HCL CR 120 MG TAB CR 1 qPM VERAPAMIL HCL 25380046848 No Longer Active Salina ROJAS Active ZYPREXA 15 MG TABS Take 1 tablet by mouth daily OLANZAPINE 85173842642 No Longer Active Marvel MARROQUIN Active LISINOPRIL 20 MG TABS 1 BID LISINOPRIL 26232198599 Active Alina Castaneda MD PhD Active ALBUTEROL SULFATE (2.5 MG/3ML) 0.083% NEBU 1 neb tid and prn cough ALBUTEROL SULFATE 58269534894 No Longer Active Alina Castaneda MD PhD Active FLUVOXAMINE MALEATE 100 MG TABS Take one (1) tablet by mouth am, 1/2 at noon, 1 pm FLUVOXAMINE MALEATE 10539191550 Active Alina Castaneda MD PhD Active TRAVATAN Z 0.004 % SOLN 1 gtt each eye daily TRAVOPROST 81264469758 Active Alina Andrea, RMA Active LANTUS 100 UNIT/ML SOLN 60 units sq q hs INSULIN GLARGINE 03236382852 No Longer Active Alina AndreaCRYSTAL Active ALBUTEROL SULFATE (2.5 MG/3ML) 0.083% NEBU 1 neb tid and prn cough ALBUTEROL SULFATE (2.5 MG/3ML) 0.083% NEBU 480701 ALBUTEROL SULFATE Inactive ZYPREXA 15 MG TABS Take 1 tablet by mouth daily ZYPREXA 15 MG TABS 112407 OLANZAPINE Inactive VERAPAMIL HCL CR 120 MG TAB CR 1 qPM VERAPAMIL HCL CR 120 MG TAB CR VERAPAMIL HCL Inactive ZYPREXA 10 MG TABS Take one by mouth daily ZYPREXA 10 MG TABS 476486 OLANZAPINE Inactive TOPROL XL 100 MG [id number]-HQR 1 @ HS TOPROL XL 100 MG [id number] METOPROLOL SUCCINATE Inactive LEVEMIR 100 UNIT/ML SOLN 90 units SQ qHS LEVEMIR 100 UNIT/ML SOLN INSULIN DETEMIR Inactive PROMETHAZINE-CODEINE 6.25-10 MG/5ML SYRP 1 tsp po q 6 hours prn cough PROMETHAZINE-CODEINE 6.25-10 MG/5ML SYRP 229040 PROMETHAZINE- CODEINE Inactive GUAIFENESIN 600 MG LF78O-SVI 1 tablet by mouth twice daily if needed for cough GUAIFENESIN 600 MG [id number]-XRP GUAIFENESIN Inactive ALBUTEROL SULFATE 0.083 % NEBU SOLN one vial per nebulizer TID and PRN cough/ soa ALBUTEROL SULFATE 0.083 % NEBU SOLN 045427 ALBUTEROL SULFATE Inactive ZYPREXA 5 MG TABS take one tablet by mouth every evening ZYPREXA 5 MG TABS 055086 OLANZAPINE Inactive HYDROCODONE-ACETAMINOPHEN 5-325 MG TABS take one tablet by mouth every four hours as needed for pain HYDROCODONE-ACETAMINOPHEN 5-325 MG TABS 288970 HYDROCODONE-ACETAMINOPHEN Inactive BACTROBAN 2 % CREAM apply to ear and nose twice daily BACTROBAN 2 % CREAM 494202 MUPIROCIN CALCIUM Inactive CYCLOBENZAPRINE HCL 10 MG TABS 1/2 tablet by mouth every 8 hours as needed for muscle spasms CYCLOBENZAPRINE HCL 10 MG TABS 304191 CYCLOBENZAPRINE HCL Inactive NAVANE 10 MG CAPS 1/2 tablet twice a day NAVANE 10 MG CAPS THIOTHIXENE Inactive DOXEPIN HCL 10 MG CAPS Take 1 tablet by mouth daily DOXEPIN HCL 10 MG CAPS 0355572 DOXEPIN HCL Inactive HYDROCODONE-ACETAMINOPHEN 7.5-325 MG TABS 1 four times a day as needed for pain HYDROCODONE-ACETAMINOPHEN 7.5-325 MG TABS 699257 HYDROCODONE-ACETAMINOPHEN Inactive NIACIN CR 500 MG CR-TABS 2 qHS NIACIN CR 500 MG CR- TABS NIACIN Inactive ORPHENADRINE CITRATE ER 100 MG HN74G-HYP 1 every 12 hr. as needed ORPHENADRINE CITRATE ER 100 MG [id number]-CFD ORPHENADRINE CITRATE Inactive ACETAMINOPHEN 500 MG TABS 2 Q 6 hr. PRN ACETAMINOPHEN 500 MG TABS 113999 ACETAMINOPHEN Inactive SAPHRIS 5 MG SUBL by mouth twice a day SAPHRIS 5 MG SUBL ASENAPINE MALEATE Inactive NIACIN ER 500 MG CR-TABS 4 qHS (for triglycerides) NIACIN ER 500 MG CR-TABS NIACIN Inactive IBUPROFEN 200 MG TABS 1 Q 6 hr. PRN IBUPROFEN 200 MG TABS 099128 IBUPROFEN Inactive FLUTICASONE PROPIONATE 50 MCG/ACT SUSP 2 sprays each nostril qDay x 30 days FLUTICASONE PROPIONATE 50 MCG/ACT SUSP 018307 FLUTICASONE PROPIONATE Inactive EQL TRUETEST TEST STRP Test blood sugar TID EQL TRUETEST TEST STRP GLUCOSE BLOOD Inactive TERESE CONTOUR TEST STRP monitor blood sugars 3x/day TERESE CONTOUR TEST STRP GLUCOSE BLOOD Inactive DETROL LA 4 MG MU28L-HHX Take 1 tablet by mouth daily DETROL LA 4 MG [id number]-RYZ TOLTERODINE TARTRATE Inactive ZYPREXA 7.5 MG TABS 1 at HS ZYPREXA 7.5 MG TABS 648614 OLANZAPINE Inactive THIOTHIXENE 5 MG CAPS by mouth twice a day THIOTHIXENE 5 MG CAPS 794471 THIOTHIXENE Inactive UROXATRAL 10 MG OP04N-YNP Take 1 tablet by mouth daily UROXATRAL 10 MG GM83S-JIO ALFUZOSIN HCL Inactive ACYCLOVIR 400 MG ORAL TABS 1 pill three times daily x 5 days, for cold sore outbreak ACYCLOVIR 400 MG ORAL TABS 097221 ACYCLOVIR Inactive TRUETEST TEST STRP check sugars 4x/day TRUETEST TEST STRP GLUCOSE BLOOD Inactive HUMALOG 100 UNIT/ML SOLN Take 20 units with breakfast, 10u with lunch and suppetr. HUMALOG 100 UNIT/ML SOLN INSULIN LISPRO ( HUMAN) Inactive CYCLOBENZAPRINE HCL 10 MG TABS 1 tablet by mouth three times daily, scheduled CYCLOBENZAPRINE HCL 10 MG TABS 360044 CYCLOBENZAPRINE HCL Inactive ACCU-CHEK ROSA INVITR STRP use strips with device to check blood sugars 3 times daily ACCU-CHEK ROSA INVITR STRP GLUCOSE BLOOD Inactive ACCU-CHEK ROSA UZMA Use device to check blood sugars ACCU-CHEK ROSA UZMA BLOOD GLUCOSE MONITORING SUPPL Inactive CEFDINIR 300 MG CAPS by mouth twice a day CEFDINIR 300 MG CAPS 417191 CEFDINIR Inactive AZITHROMYCIN 500 MG SOLR 1 po q day AZITHROMYCIN 500 MG SOLR 449242 AZITHROMYCIN Inactive AMOXICILLIN 500 MG CAPS 2 po BID x 10 days AMOXICILLIN 500 MG CAPS 548919 AMOXICILLIN Inactive PENICILLIN V POTASSIUM 500 MG TABS 1 pill by mouth three times daily PENICILLIN V POTASSIUM 500 MG TABS 410282 PENICILLIN V POTASSIUM Inactive Immunizations Vaccine Administration [...] Fluvirin, Fluarix, Agriflu(>=18 yo)) Fluzone (>3 yrs.) [REI711] Influenza, seasonal, injectable pneumococcal immunization administered Pneumovax [...] HGBA1C - Chemistry sodium, serum 131 mmol/L 997-637 9783/12/30 potassium, serum 5.0 mmol/L 3.5-5.2 chloride, serum 95 mmol/L 98-107 carbon dioxide, venous blood 26.7 mmol/L 21.0-32.0 blood glucose 112 mg/dL 65-110 calcium, serum 9.2 mg/dL 8.5-10.1 urea nitrogen, blood 12 mg/dL 7-18 creatinine, serum 1.10 mg/dL 0.60-1.30 hemoglobin A1C, blood, as % of total hemoglobin 5.8 % 4.3-6.0 Lab Report: Basic Metabolic Panel, HGBA1C, MICROALBUMIN - Chemistry sodium, serum 137 mmol/L 682-889 5794/05/19 potassium, serum 5.2 mmol/L 3.5-5.2 chloride, serum [...] microalbumin, urine 10 0-19 Lab Report: Chlamydia/GC APTIMA/90570, HIV-1/2 Agn/Odminga/42591, RPR (DX) W ... - Chemistry hepatitis B surface antigen NON-REACTIVE NON-REACTIVE Lab Report: Chlamydia/GC APTIMA/07193, HIV-1/2 Agn/Dominga/92838, RPR (DX) W ... - Lab chlamydia DNA probe NOT DETECTED NOT DETECTED Lab Report: Chlamydia/GC APTIMA/83920, HIV-1/2 Agn/Dominga/69658, RPR (DX) W ... - Microbiology Neisseria gonorrhoeae DNA probe NOT DETECTED NOT DETECTED Lab Report: Chlamydia/GC APTIMA/43416, HIV-1/2 Agn/Dominga/42890, RPR (DX) W ... - Serology rapid plasma reagin antibody titer NON-REACTIVE NON-REACTIVE Lab Report: Comp. Metabolic Panel - Chemistry sodium, serum 127 mmol/L 672-067 7245/10/27 potassium, serum 4.1 mmol/L 3.5-5.2 chloride, serum [...] CBC - Chemistry cholesterol, serum 131 mg/dL 644-001 5707/06/03 triglyceride, serum, fasting 383 mg/dL 30-200 HDL [...] 4.7 mg/dL 2.6-7.2 cholesterol, serum 142 mg/dL 699-006 7924/06/26 triglyceride, serum, fasting 272 mg/dL 30-200 HDL [...] mg/dL Encounters Code Encounter Date Provider Facility CPT-40666 Level 3 Est. Patient 14:46:15 [facility] Level [facility] Est[facility] Patient 09:34:56 CDT Alina Castaneda MD [facility]-95339 Level 3 Est. Patient 21:40:19 CDT Mima Erazo [facility]-21886 Level 3 Est. Patient 09:26:40 CDT Marvel Charles [facility]-01532 Level 3 Est. Patient 12:36:43 CDT Vanessa Hickey MD [facility]-64477 Level 3 Est. Patient 12:57:49 CDT Vanessa Hickey MD [facility]-35281 Level 3 Est. Patient 00:28:25 CDT Alina Castaneda MD [facility]28916 Level 2 Est. Patient 12:52:14 CDT Alina Castaneda MD [facility]11770 Level 3 Est. Patient 11:51:18 [employer] Alina Castaneda MD [facility]-55580 Level 3 Est. Patient 10:09:22 [employer] Alina Castaneda MD [facility]20084 Level 3 Est. Patient 14:36:26 [employer] Marvel Charles [facility]-21066 Level 3 Est. Patient 13:34:47 [employer] Alina Castaneda MD [facility]-61656 Level 3 Est. Patient 19:52:08 [employer] Alina Castaneda MD [facility]-39148 Level 3 Est. Patient 10:01:51 [employer] Marvel Charles [facility]50711 Level 3 Est. Patient 21:54:06 CDT Vanessa Hickey MD [facility]-55001 Level 3 Est. Patient 08:54:46 CDT Alina Castaneda MD [facility]-65919 Level 3 Est. Patient 09:32:11 CDT Marvel Gurdeepajayestela [facility]-95373 Level 3 Est. Patient 12:02:49 CDT Alina Castaneda MD [facility]-01013 Level 3 Est. Patient 19:17:33 CDT Alina Castaneda MD [facility]33957 Level 3 Est. Patient 13:19:10 CDT Marvel Gurdeepajayestela [facility]-80656 Level 3 Est. Patient 08:20:05 CDT Alina Castaneda MD [facility]-32990 Level 3 Est. Patient 15:17:18 CDT Alina Castaneda MD [facility]-29151 Level 3 Est. Patient 14:25:36 [employer] [facility] Level 3 Est. Patient 10:09:15 [employer] OR [employer] Marvel Charles [facility]-56104 Level 3 Est. Patient 21:28:43 CDT Alina Castaneda MD [facility]-37392 Level 3 Est. Patient 15:20:11 CDT Marvel Araceli [facility]-93452 Level 4 Est. Patient 19:08:12 CDT Alina Castaneda MD [facility]-60039 Level 3 Est. Patient 15:06:39 CDT Marvel Charles [facility]-26324 Level 4 Est. Patient 17:48:15 CDT Alina Castaneda MD [facility]-87915 Level 3 Est. Patient 14:53:49 CDT Alina Castaneda MD [facility]-76747 Level 3 Est. Patient 09:35:16 CDT Alina Castaneda MD [facility]-48525 Level 3 Est. Patient 12:23:22 CDT Alina Castaneda MD [facility]69833 Level 3 Est. Patient 16:19:15 CDT Alina Castaneda MD [facility]-42190 Level 3 Est. Patient 21:39:56 [employer] Alina Castaneda MD [facility]-52977 Level 4 Est. Patient 14:12:56 [employer] Alina Castaneda MD [facility]-85791 Level 2 Est. Patient 15:34:57 [employer] Alina Castaneda MD [facility]-56965 Level 3 Est. Patient 12:17:04 [employer] Alina Castaneda MD [facility]-21766 Level 3 Est. Patient 09:18:18 [employer] Marvel Charles [facility]-29661 Level 2 Est. Patient 21:50:24 CDT Alina Castaneda MD [facility]-56383 Level 3 Est. Patient 09:17:28 CDT Marvel Charles [facility]-29840 Level 4 Est. Patient 18:54:02 CDT Alina Castaneda MD [facility]03022 Level 3 Est. Patient 10:47:10 CDT Alina Castaneda MD [facility]47967 Level 3 Est. Patient 09:22:20 CDT Marvel Charles [facility]-18034 Level 3 Est. Patient 16:39:43 CDT [facility] Level 3 Est. Patient 16:05:16 CDT Alina Castaneda MD [facility] CPT-00615 Level 3 Est. Patient 00:29:15 CDT Alina Castaneda MD [facility] CPT-37146 Level 3 Est. Patient 10:49:22 [employer] Marvel Gurdeepajayestela [facility] CPT-41006 Level 3 Est. Patient 21:30:19 [employer] Alina Castaneda MD [facility] CPT-49593 Level 4 Est. Patient 17:04:11 [employer] [place] Gurdeepajayestela [facility] CPT-56440 Level 3 Est. Patient 15:34:11 [employer] OFF[employer]ER [facility]-88938 Level 2 Est. Patient 12:51:58 [employer] Alina Castaneda MD [facility] CPT-05178 Level 3 Est. Patient 13:20:01 [employer] Alina Castaneda MD [facility] CPT-28046 Level 3 Est. Patient 09:23:35 CDT Alina Castaneda MD [facility] Procedures Code Procedure Name Date Entry Date Standard Description CPT-33909 Bladder Scan 12:36:44 CDT CPT-92985 Bladder Scan 21:54:06 CDT CPT-G0008 Administration of Influenza Virus Vaccine 13:05:26 CDT CPT-48244 Fluzone Quadrivalent Intramuscular Suspension 0.5 ML 13: 05:26 CDT CPT-53211 Administration single or combination vaccine inc oral 11 :49:51 CDT CPT-78359 Pneumovax 11:49:51 CDT CPT-82910 Ribs unilateral 2V 12:37:22 [employer] CPT-00134 Chest 2V Frontal and Lat 17:15:26 CDT CPT-23204 Abx/Therapy Injection 18:54:02 CDT CPT-J0696 Rocephin 1000 mg (Ceftriaxone) 16:00:32 CDT CPT-84087 Chest 2V Frontal and Lat 15:26:45 CDT CPT-08206 Chest 2V Frontal and Lat 10:23:27 CDT CPT-29735 Venipuncture Draw Fee 10:11:00 CDT CPT-48004 Administration single or combination vaccine inc oral 11 :56:38 CDT CPT-68834 Influenza split virus > age 3 11:56:38 CDT CPT-59809 Venipuncture Draw Fee 08:49:54 [employer] CPT-41983 EKG Trac and Interp 17:54:19 [employer]
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
--- OUTSIDE RECORDS SUMMARY | 2018-07-02 16:30 | XMS REPORT | Clinical Summary ---
Author Author Admin, TERELL Organization [facility] Address Unknown Phone Unavailable Allergies, [...] PhD Obsessive-compulsive disorders GLAUCOMA NOS 365.9 Active Ailna Castaneda MD PhD Unspecified glaucoma GOUT, UNSPECIFIED [...] neoplasms of prostate Hypoglycemia 251.2 Resolved Alina Casatneda MD PhD Hypoglycemia, unspecified Diabetes mellitus, type [...] floor of mouth, uncomplicated 873.64 Resolved Alina Casatneda MD PhD Open wound of tongue and floor of mouth, without mention of complication Chest pain, atypical 786.59 Resolved Alina Castaneda MD PhD Other chest pain Chest pain, atypical 786.59 Resolved Alina Castaneda MD PhD Other chest pain Urinary Retention 788.20 Active Vanessa Hickey MD Retention of urine, unspecified Benign paroxysmal positional vertigo 386.[address] [employer] Benign paroxysmal positional vertigo Vertigo, benign paroxysmal position 386.[address] [employer] Benign paroxysmal positional vertigo High-risk sexual behavior V69.2 Active Alina Castaneda MD PhD High-risk sexual behavior Erectile dysfunction 302.72 Active Alina Castaneda MD PhD Psychosexual dysfunction with inhibited sexual excitement Constipation 564.00 Active Alina Castaneda MD PhD Constipation, unspecified Skin lesion 709.9 Active Alina Castaneda MD PhD Unspecified disorder of skin and subcutaneous tissue Malaise and fatigue 780.[address] Speaks [facility] [employer] Other malaise and fatigue Diarrhea 787.[address] [facility] [employer] Diarrhea PHARYNGITIS 462 Active Cherelle Speaks [facility] [employer] Acute pharyngitis Colitis 558.[address] [facility] [employer] Other and unspecified noninfectious gastroenteritis and colitis WOUND, OPEN, NOSE ICD-873.20 Inactive Alina Castaneda MD PhD DIABETES, TYPE 2 ICD-250.00 Inactive Alina Castaneda MD PhD HYPERTENSION ICD-401.9 Inactive Alina Castaneda MD PhD URI ICD-465.9 Inactive Alina Castaneda MD PhD CHEST PAIN ICD-786.50 Inactive Alina Castaneda MD PhD FH STROKE ICD-V17.1 Inactive Marvel Charles PRODUCTION SAMPLER FATIGUE ICD-780.79 Inactive Alina Castaneda MD PhD [...] Take one capsule BID for constipation LUBIPROSTONE 72858557873 Active Mima Erazo [facility] [employer] Active LEVEMIR FLEXTOUCH 100 UNIT/ML SC SOPN 75 units SQ each evening, for diabetes INSULIN DETEMIR 61511175887 Active Salina ROBBINSA Active TRUEPLUS LANCETS 30G MISC 3 a day LANCETS 42019759098 Active Marvel Charles PRODUCTION SAMPLER Active TOLTERODINE TARTRATE 2 MG TABS 1 pill twice daily, for bladder TOLTERODINE TARTRATE 56787044852 No Longer Active Vanessa Hickey MD Active AMITIZA 24 MCG ORAL CAPS Take one capsule BID for constipation. LUBIPROSTONE 73337816695 No Longer Active Vanessa Hickey MD Active LOMOTIL 2.5-0.025 MG ORAL TABS take 1-2 tabs PO after each stool, no more than 8 in 24 hours DIPHENOXYLATE-ATROPINE 60993267010 Active Grace ROJAS Active FLUVOXAMINE MALEATE 100 MG ORAL TABS take one tab every AM et HS, and take 1/ 2 tab at noon FLUVOXAMINE MALEATE 01689664614 Active Grace Nascimento RMA Active METOPROLOL SUCCINATE 100 MG [id number] 1 by mouth daily for blood pressure METOPROLOL SUCCINATE 94233493223 No Longer Active Grace Nascimento RMA Active METFORMIN HCL ER 500 MG [id number]-KOT Take three tablets by mouth everyday METFORMIN HCL 75500503871 No Longer Active Grace Azam RMA Active LOVAZA 1 GM CAPS 4 daily (for triglycerides) OMEGA-3- ACID ETHYL ESTERS 03432711430 No Longer Active Grace Azam RMA Active TRAZODONE HCL 100 MG ORAL TABS 1 tab by mouth for sleep TRAZODONE HCL 67187554601 No Longer Active Gracekailee Nelsonb RMA Active NOVOFINE 32G X 6 MM MISC use one four times per day INSULIN PEN NEEDLE 83981595029 No Longer Active Grace Nascimento RMA Active BACTROBAN 2 % CREAM Apply to affected area BID for up to 10 days MUPIROCIN CALCIUM 67748256432 No Longer Active Grace Nascimento RMA Active ZOFRAN 4 MG TABS 1 po q4hr PRN Nausea ONDANSETRON HCL 23336688079 Active Salina Han RMA Active KEFLEX 500 MG CAP 1 po BID x 7 days CEPHALEXIN 99703654865 No Longer Active Cherelle Avila [facility] [employer] Active FLUVOXAMINE MALEATE 100 MG TABS Take one (1) tablet by mouth am, 1/2 at noon FLUVOXAMINE MALEATE 80148262043 No Longer Active Mima Aguilarliudmila [facility] [employer] Active CORICIDIN HBP CONGESTION/COUGH 10-200 MG ORAL CAPS Take as directed on box as needed for cold/flu symptoms DEXTROMETHORPHAN-GUAIFENESIN 18098042999 Active Cherelle Speaks [facility] [employer] Active OMEGA-3 300 MG ORAL CAPS 4 caps by mouth daily OMEGA-3 FATTY ACIDS 37620118279 Active Cherelle Speaks [facility] [employer] Active FLUVOXAMINE MALEATE 100 MG ORAL TABS Take 1/2 tab at noon FLUVOXAMINE MALEATE 65418289655 No Longer Active Cherelle Avila ALBAN Active [facility] E[facility] DROPS 0.4-0.3 % OPHTH SOLN POLYETHYL GLYCOL-PROPYL GLYCOL 16836743369 Active Mima Yoliudmila [facility] [employer] Active CLONAZEPAM 1 MG TABS 1/2 pill by mouth three times daily CLONAZEPAM 69785620918 Active Alina Castaneda MD PhD Active MIRALAX POWD 17g by mouth daily, for constipation POLYETHYLENE GLYCOL 3350 86476764322 Active Alina Castaneda MD PhD Active HYDROCODONE-ACETAMINOPHEN 5-325 MG TABS 2 tabs by mouth three times daily for pain HYDROCODONE-ACETAMINOPHEN 55802866490 Active Mima Aguilarliudmila REYESN Active HUMALOG KWIKPEN 100 UNIT/ML SC SOPN 20 units with breakfast, 10 units with lunch, 10 units with dinner, for diabetes INSULIN LISPRO (HUMAN ) 21633964722 Active Alina Castaneda MD PhD Active LATUDA 120 MG ORAL TABS 1 pill by mouth nightly LURASIDONE HCL 04983611953 Active Alina Castaneda MD PhD Active COLACE 100 MG CAPS 1 pill by mouth twice daily, for constipation DOCUSATE SODIUM 21782698983 Active Alina Castaneda MD PhD Active TRUETEST TEST STRP check blood sugars 3x/day GLUCOSE BLOOD 65436478258 Active Marvel Mackenzieglari PRODUCTION SAMPLER Active ACCU-CHEK ROSA UZMA Use device to check blood sugars BLOOD GLUCOSE MONITORING SUPPL 81186063948 No Longer Active Maliheh Ziglari PRODUCTION SAMPLER Active ACCU-CHEK ROSA INVITR STRP use strips with device to check blood sugars 3 times daily GLUCOSE BLOOD 45446982588 No Longer Active Maliheh 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 PRODUCTION SAMPLER Active VERAPAMIL HCL ER 180 MG ORAL CR-TABS 1 pill by mouth twice daily, for migraine prevention VERAPAMIL HCL 86160989910 Active Alina Castaneda MD PhD Active CYCLOBENZAPRINE HCL 10 MG TABS 1 tablet by mouth three times daily, scheduled CYCLOBENZAPRINE HCL 45092717537 No Longer Active Alina Castaneda MD PhD Active HUMALOG 100 UNIT/ML SOLN Take 20 units with breakfast, 10u with lunch and suppetr. INSULIN LISPRO (HUMAN) 61532667925 No Longer Active Alina Castaneda MD PhD Active TRUETEST TEST STRP check sugars 4x/day GLUCOSE BLOOD 19602680587 No Longer Active Alina Castaneda MD PhD Active MORPHINE SULFATE 30 MG TABS 1 pill by mouth twice daily, for pain MORPHINE SULFATE 72060447215 Active Mima Erazo [facility] [employer] Active ACYCLOVIR 400 MG ORAL TABS 1 pill three times daily x 5 days, for cold sore outbreak ACYCLOVIR 23366692413 No Longer Active Alina Castaneda MD PhD Active PENICILLIN V POTASSIUM 500 MG TABS 1 pill by mouth three times daily PENICILLIN V POTASSIUM 89379463727 No Longer Active Alina Castaneda MD PhD Active UROXATRAL 10 MG [id number] Take 1 tablet by mouth daily ALFUZOSIN HCL 23355750004 No Longer Active Alina Castaneda MD PhD Active THIOTHIXENE 5 MG CAPS by mouth twice a day THIOTHIXENE 91211122483 No Longer Active Alina Castaneda MD PhD Active ZYPREXA 7.5 MG TABS 1 at HS OLANZAPINE 70203845504 No Longer Active Alina Castaneda MD PhD Active BD INSULIN SYRINGE 28G X 1/2" 1 ML MISC 1 four times per day INSULIN SYRINGE-NEEDLE U-100 27323089531 Active Marvel Mackenzieglestela PRODUCTION SAMPLER Active DETROL LA 4 MG [id number]-QLC Take 1 tablet by mouth daily TOLTERODINE TARTRATE 30818243996 No Longer Active Alina Castaneda MD PhD Active TERESE CONTOUR TEST STRP monitor blood sugars 3x/day GLUCOSE BLOOD 84042377144 No Longer Active Alina Castaneda MD PhD Active EQL TRUETEST TEST STRP Test blood sugar TID GLUCOSE BLOOD 16993540581 No Longer Active Alina Castaneda MD PhD Active FLUTICASONE PROPIONATE 50 MCG/ACT SUSP 2 sprays each nostril qDay x 30 days FLUTICASONE PROPIONATE 55815627877 No Longer Active Alina Castaneda MD PhD Active IBUPROFEN 200 MG TABS 1 Q 6 hr. PRN IBUPROFEN 76920952089 No Longer Active Alina Castaneda MD PhD Active NIACIN ER 500 MG CR-TABS 4 qHS (for triglycerides) NIACIN 73522855889 No Longer Active Alina aCstaneda MD PhD Active ALFUZOSIN HCL ER 10 MG [id number]-JXN 1 tablet daily ALFUZOSIN HCL 81501031680 Active Vanessa Hickey MD Active SAPHRIS 5 MG SUBL by mouth twice a day ASENAPINE MALEATE 15047642279 No Longer Active Maliheh Ziglari PRODUCTION SAMPLER Active ACETAMINOPHEN 500 MG TABS 2 Q 6 hr. PRN ACETAMINOPHEN 23948382670 No Longer Active Maliheh Ziglari PRODUCTION SAMPLER Active ORPHENADRINE CITRATE ER 100 MG [id number]-YFB 1 every 12 hr. as needed ORPHENADRINE CITRATE 60354709985 No Longer Active Alina Castaneda MD PhD Active NIACIN CR 500 MG CR-TABS 2 qHS NIACIN 08885591501 No Longer Active Alina Castaneda MD PhD Active AMOXICILLIN 500 MG CAPS 2 po BID x 10 days AMOXICILLIN 33299783136 No Longer Active Alina Castaneda MD PhD Active HYDROCODONE-ACETAMINOPHEN 7.5-325 MG TABS 1 four times a day as needed for pain HYDROCODONE-ACETAMINOPHEN 90728985077 No Longer Active Alina Castaneda MD PhD Active DOXEPIN HCL 10 MG CAPS Take 1 tablet by mouth daily DOXEPIN HCL 96080906162 No Longer Active Salina Han [facility] Active NAVANE 10 MG CAPS 1/2 tablet twice a day THIOTHIXENE No Longer Active Salina Han [facility] Active CYCLOBENZAPRINE HCL 10 MG TABS 1/2 tablet by mouth every 8 hours as needed for muscle spasms CYCLOBENZAPRINE HCL 50577583345 No Longer Active Alina Castaneda MD PhD Active BACTROBAN 2 % CREAM apply to ear and nose twice daily MUPIROCIN CALCIUM 60170807548 No Longer Active Alina Castaneda MD PhD Active HYDROCODONE-ACETAMINOPHEN 5-325 MG TABS take one tablet by mouth every four hours as needed for pain HYDROCODONE-ACETAMINOPHEN 20690174457 No Longer Active Alina Castaneda MD PhD Active ZOLPIDEM TARTRATE 10 MG TABS take at bedtime ZOLPIDEM TARTRATE 03585438958 Active Alina Castaneda MD PhD Active ZYPREXA 5 MG TABS take one tablet by mouth every evening OLANZAPINE 59807126600 No Longer Active Alina Castaneda MD PhD Active ALBUTEROL SULFATE 0.083 % NEBU SOLN one vial per nebulizer TID and PRN cough/ soa ALBUTEROL SULFATE 31012812746 No Longer Active Alina Castaneda MD PhD Active GUAIFENESIN 600 MG OC65B-BSA 1 tablet by mouth twice daily if needed for cough GUAIFENESIN 98930913394 No Longer Active Marvel MENDOZAP Active AZITHROMYCIN 500 MG SOLR 1 po q day AZITHROMYCIN 36674384620 No Longer Active Alina Castaneda MD PhD Active PROMETHAZINE-CODEINE 6.25-10 MG/5ML SYRP 1 tsp po q 6 hours prn cough PROMETHAZINE-CODEINE 73233180530 No Longer Active Alina Castaneda MD PhD Active CEFDINIR 300 MG CAPS by mouth twice a day CEFDINIR 86676137667 No Longer Active Alina Castaneda MD PhD Active METFORMIN HCL 500 MG OS82C-EBN Take 3 tablets by mouth everyday METFORMIN HCL 16735321877 No Longer Active Alina Castaneda MD PhD Active LEVEMIR 100 UNIT/ML SOLN 90 units SQ qHS INSULIN DETEMIR 52465841486 No Longer Active Marvel MARROQUIN Active TOPROL XL 100 MG [id number]-SRS 1 @ HS METOPROLOL SUCCINATE 91645739831 No Longer Active Marvel MARROQIUN Active ALLOPURINOL 300 MG TABS Take one by mouth daily ALLOPURINOL 17046197890 Active Alina Castaneda MD PhD Active ZYPREXA 10 MG TABS Take one by mouth daily OLANZAPINE 16789342118 No Longer Active Alina Castaneda MD PhD Active NOVOLOG 100 UNIT/ML SOLN 40 units with every meal INSULIN ASPART 04658119898 No Longer Active Alina Castaneda MD PhD Active VERAPAMIL HCL CR 120 MG TAB CR 1 qPM VERAPAMIL HCL 05710357943 No Longer Active Salina ROJAS Active ZYPREXA 15 MG TABS Take 1 tablet by mouth daily OLANZAPINE 77063347996 No Longer Active Marvel MARROQUIN Active LISINOPRIL 20 MG TABS 1 BID LISINOPRIL 96595962027 Active Alina Castaneda MD PhD Active ALBUTEROL SULFATE (2.5 MG/3ML) 0.083% NEBU 1 neb tid and prn cough ALBUTEROL SULFATE 53459746700 No Longer Active Alina Castaneda MD PhD Active TRAVATAN Z 0.004 % SOLN 1 gtt each eye daily TRAVOPROST 95956667467 Active CRYSTAL Suarez Active LANTUS 100 UNIT/ML SOLN 60 units sq q hs INSULIN GLARGINE 26595410042 No Longer Active CRYSTAL Suarez Active ALBUTEROL SULFATE (2.5 MG/3ML) 0.083% NEBU 1 neb tid and prn cough ALBUTEROL SULFATE (2.5 MG/3ML) 0.083% NEBU 373660 ALBUTEROL SULFATE Inactive ZYPREXA 15 MG TABS Take 1 tablet by mouth daily ZYPREXA 15 MG TABS 773568 OLANZAPINE Inactive VERAPAMIL HCL CR 120 MG TAB CR 1 qPM VERAPAMIL HCL CR 120 MG TAB CR VERAPAMIL HCL Inactive ZYPREXA 10 MG TABS Take one by mouth daily ZYPREXA 10 MG TABS 772028 OLANZAPINE Inactive TOPROL XL 100 MG ER38N-LFR 1 @ HS TOPROL XL 100 MG ET29S-NBW METOPROLOL SUCCINATE Inactive LEVEMIR 100 UNIT/ML SOLN 90 units SQ qHS LEVEMIR 100 UNIT/ML SOLN INSULIN DETEMIR Inactive PROMETHAZINE-CODEINE 6.25-10 MG/5ML SYRP 1 tsp po q 6 hours prn cough PROMETHAZINE-CODEINE 6.25-10 MG/5ML SYRP 967634 PROMETHAZINE- CODEINE Inactive GUAIFENESIN 600 MG LS12N-ADO 1 tablet by mouth twice daily if needed for cough GUAIFENESIN 600 MG [id number]-DCS GUAIFENESIN Inactive ALBUTEROL SULFATE 0.083 % NEBU SOLN one vial per nebulizer TID and PRN cough/ soa ALBUTEROL SULFATE 0.083 % NEBU SOLN 287672 ALBUTEROL SULFATE Inactive ZYPREXA 5 MG TABS take one tablet by mouth every evening ZYPREXA 5 MG TABS 882124 OLANZAPINE Inactive HYDROCODONE-ACETAMINOPHEN 5-325 MG TABS take one tablet by mouth every four hours as needed for pain HYDROCODONE-ACETAMINOPHEN 5-325 MG TABS 638969 HYDROCODONE-ACETAMINOPHEN Inactive BACTROBAN 2 % CREAM apply to ear and nose twice daily BACTROBAN 2 % CREAM 328823 MUPIROCIN CALCIUM Inactive CYCLOBENZAPRINE HCL 10 MG TABS 1/2 tablet by mouth every 8 hours as needed for muscle spasms CYCLOBENZAPRINE HCL 10 MG TABS 554497 CYCLOBENZAPRINE HCL Inactive NAVANE 10 MG CAPS 1/2 tablet twice a day NAVANE 10 MG CAPS THIOTHIXENE Inactive DOXEPIN HCL 10 MG CAPS Take 1 tablet by mouth daily DOXEPIN HCL 10 MG CAPS 8816063 DOXEPIN HCL Inactive HYDROCODONE-ACETAMINOPHEN 7.5-325 MG TABS 1 four times a day as needed for pain HYDROCODONE-ACETAMINOPHEN 7.5-325 MG TABS 373171 HYDROCODONE-ACETAMINOPHEN Inactive NIACIN CR 500 MG CR-TABS 2 qHS NIACIN CR 500 MG CR- TABS NIACIN Inactive ORPHENADRINE CITRATE ER 100 MG [id number]-DRV 1 every 12 hr. as needed ORPHENADRINE CITRATE ER 100 MG CE76A-OOR ORPHENADRINE CITRATE Inactive ACETAMINOPHEN 500 MG TABS 2 Q 6 hr. PRN ACETAMINOPHEN 500 MG TABS 574508 ACETAMINOPHEN Inactive SAPHRIS 5 MG SUBL by mouth twice a day SAPHRIS 5 MG SUBL ASENAPINE MALEATE Inactive NIACIN ER 500 MG CR-TABS 4 qHS (for triglycerides) NIACIN ER 500 MG CR-TABS NIACIN Inactive IBUPROFEN 200 MG TABS 1 Q 6 hr. PRN IBUPROFEN 200 MG TABS 468985 IBUPROFEN Inactive FLUTICASONE PROPIONATE 50 MCG/ACT SUSP 2 sprays each nostril qDay x 30 days FLUTICASONE PROPIONATE 50 MCG/ACT SUSP 281916 FLUTICASONE PROPIONATE Inactive EQL TRUETEST TEST STRP Test blood sugar TID EQL TRUETEST TEST STRP GLUCOSE BLOOD Inactive TERESE CONTOUR TEST STRP monitor blood sugars 3x/day TERESE CONTOUR TEST STRP GLUCOSE BLOOD Inactive DETROL LA 4 MG [id number]-[id number] Take 1 tablet by mouth daily DETROL LA 4 MG LF32E-BUL TOLTERODINE TARTRATE Inactive ZYPREXA 7.5 MG TABS 1 at HS ZYPREXA 7.5 MG TABS 815356 OLANZAPINE Inactive THIOTHIXENE 5 MG CAPS by mouth twice a day THIOTHIXENE 5 MG CAPS 953218 THIOTHIXENE Inactive UROXATRAL 10 MG [id number]-NCJ Take 1 tablet by mouth daily UROXATRAL 10 MG BB96C-EUS ALFUZOSIN HCL Inactive ACYCLOVIR 400 MG ORAL TABS 1 pill three times daily x 5 days, for cold sore outbreak ACYCLOVIR 400 MG ORAL TABS 411061 ACYCLOVIR Inactive TRUETEST TEST STRP check sugars 4x/day TRUETEST TEST STRP GLUCOSE BLOOD Inactive HUMALOG 100 UNIT/ML SOLN Take 20 units with breakfast, 10u with lunch and suppetr. HUMALOG 100 UNIT/ML SOLN INSULIN LISPRO ( HUMAN) Inactive CYCLOBENZAPRINE HCL 10 MG TABS 1 tablet by mouth three times daily, scheduled CYCLOBENZAPRINE HCL 10 MG TABS 091118 CYCLOBENZAPRINE HCL Inactive ACCU-CHEK ROSA INVITR STRP use strips with device to check blood sugars 3 times daily ACCU-CHEK ROSA INVITR STRP GLUCOSE BLOOD Inactive ACCU-CHEK ROSA UZMA Use device to check blood sugars ACCU-CHEK ROSA UZMA BLOOD GLUCOSE MONITORING SUPPL Inactive FLUVOXAMINE MALEATE 100 MG ORAL TABS Take 1/2 tab at noon FLUVOXAMINE MALEATE 100 MG ORAL TABS 974471 FLUVOXAMINE MALEATE Inactive FLUVOXAMINE MALEATE 100 MG TABS Take one (1) tablet by mouth am, 1/2 at noon FLUVOXAMINE MALEATE 100 MG TABS 193862 FLUVOXAMINE MALEATE Inactive BACTROBAN 2 % CREAM Apply to affected area BID for up to 10 days BACTROBAN 2 % CREAM 683824 MUPIROCIN CALCIUM Inactive NOVOFINE 32G X 6 MM MISC use one four times per day NOVOFINE 32G X 6 MM MISC INSULIN PEN NEEDLE Inactive TRAZODONE HCL 100 MG ORAL TABS 1 tab by mouth for sleep TRAZODONE HCL 100 MG ORAL TABS 734175 TRAZODONE HCL Inactive LOVAZA 1 GM CAPS 4 daily (for triglycerides) LOVAZA 1 GM CAPS 071835 BNZNJ-9-CWQH ETHYL ESTERS Inactive METFORMIN HCL ER 500 MG LL82V-CRL Take three tablets by mouth everyday METFORMIN HCL ER 500 MG YZ79E-PPJ METFORMIN HCL Inactive METOPROLOL SUCCINATE 100 MG MZ61G-XJN 1 by mouth daily for blood pressure METOPROLOL SUCCINATE 100 MG KC67J-DTY METOPROLOL SUCCINATE Inactive AMITIZA 24 MCG ORAL CAPS Take one capsule BID for constipation. AMITIZA 24 MCG ORAL CAPS LUBIPROSTONE Inactive TOLTERODINE TARTRATE 2 MG TABS 1 pill twice daily, for bladder TOLTERODINE TARTRATE 2 MG TABS 313588 TOLTERODINE TARTRATE Inactive CEFDINIR 300 MG CAPS by mouth twice a day CEFDINIR 300 MG CAPS 334996 CEFDINIR Inactive AZITHROMYCIN 500 MG SOLR 1 po q day AZITHROMYCIN 500 MG SOLR 50625815805 AZITHROMYCIN Inactive AMOXICILLIN 500 MG CAPS 2 po BID x 10 days AMOXICILLIN 500 MG CAPS 982085 AMOXICILLIN Inactive PENICILLIN V POTASSIUM 500 MG TABS 1 pill by mouth three times daily PENICILLIN V POTASSIUM 500 MG TABS 296082 PENICILLIN V POTASSIUM Inactive KEFLEX 500 MG CAP 1 po BID x 7 days KEFLEX 500 MG CAP 393593 CEPHALEXIN Inactive Immunizations Vaccine Administration Date Value [...] Fluvirin, Fluarix, Agriflu(>=18 yo)) Fluzone (>3 yrs.) [[id number]] Influenza, seasonal, injectable pneumococcal immunization administered Pneumovax [...] MICROALBUMIN - Chemistry sodium, serum 137 mmol/L 951-312 1587/05/19 potassium, serum 5.2 mmol/L 3.5-5.2 chloride, serum [...] Panel - Chemistry sodium, serum 137 mmol/L 135-026 7906/10/12 potassium, serum 4.8 mmol/L 3.5-5.2 chloride, serum 102 mmol/L 98-107 carbon dioxide, venous blood 27.6 mmol/L 21.0-32.0 blood glucose 168 mg/dL 65-110 calcium, serum 9.0 mg/dL 8.5-10.1 urea nitrogen, blood 15 mg/dL 7-18 creatinine, serum 1.04 mg/dL 0.55-1.30 sodium, serum 138 mmol/L 426-468 9623/11/11 potassium, serum 4.7 mmol/L 3.5-5.2 chloride, serum [...] % 11.6-14.8 platelet count 252 10^3/MM^3 10*3/mm3 797-610 0879/10/12 leukocyte count, blood 5.8 10^3/MM^3 10*3/mm3 4.6-10.2 [...] 240 10^3/MM^3 10*3/mm3 142-424 Lab Report: Chlamydia/GC APTIMA/[id number], HIV-1/2 Agn/Dominga/32991, RPR (DX) W ... - Chemistry hepatitis B surface antigen NON-REACTIVE NON-REACTIVE Lab Report: Chlamydia/GC APTIMA/59455, HIV-1/2 Agn/Dominga/49635, RPR (DX) W ... - Lab chlamydia DNA probe NOT DETECTED NOT DETECTED Lab Report: Chlamydia/GC APTIMA/59181, HIV-1/2 Agn/Dominga/40869, RPR (DX) W ... - Microbiology Neisseria gonorrhoeae DNA probe NOT DETECTED NOT DETECTED Lab Report: Chlamydia/GC APTIMA/98990, HIV-1/2 Agn/Dominga/58236, RPR (DX) W ... - Serology rapid plasma reagin antibody titer NON-REACTIVE NON-REACTIVE Lab Report: HGBA1C - Chemistry hemoglobin A1C, blood, as % of total hemoglobin 6.1 % 4.3-6.0 hemoglobin A1C, blood, as % of total hemoglobin 6.3 % 4.3-6.0 Lab Report: Lipid Panel, HEPATIC PANEL, MICROALBUMIN, CBC - Chemistry cholesterol, serum 131 mg/dL 584-932 0476/06/03 triglyceride, serum, fasting 383 mg/dL 30-200 HDL [...] 4.7 mg/dL 2.6-7.2 cholesterol, serum 142 mg/dL 193-465 3054/06/26 triglyceride, serum, fasting 272 mg/dL 30-200 HDL [...] negative Encounters Code Encounter Date Provider Facility CPT-25938 Level 3 Est. Patient 14:39:00 INFERTILITY MEDICAL ASSISTANT Vanessa Hickey MD [facility] CPT-99070 Level 2 Est. Patient 18:43:34 CDT Mima Erazo [facility] CPT-87701 Level 3 Est. Patient 16:22:09 CDT Cherelle Avila [facility] CPT-16821 Level 4 Est. Patient 17:55:14 CDT Mima Erazo [facility] CPT-10601 Level 2 Est. Patient 17:13:21 CDT Alina Castaneda MD PhD [facility] CPT-86967 Level 3 Est. Patient 14:46:15 CDT Vanessa Hickey MD [facility]-70798 Level 3 Est. Patient 09:34:56 CDT Alina Castaneda MD PhD [facility]-88178 Level 3 Est. Patient 21:40:19 CDT Mima Erazo [facility] CPT-70386 Level 3 Est. Patient 09:26:40 CDT Marvel Charles [facility]-84790 Level 3 Est. Patient 12:36:43 CDT Vanessa Hickey MD [facility]-93855 Level 3 Est. Patient 12:57:49 CDT Vanessa Hickey MD [facility]-03319 Level 3 Est. Patient 00:28:25 CDT Alina Castaneda MD [facility]51660 Level 2 Est. Patient 12:52:14 CDT Alina Castaneda MD [facility]75562 Level 3 Est. Patient 11:51:18 INFERTILITY MEDICAL ASSISTANT Alina Castaneda MD [facility]-19504 Level 3 Est. Patient 10:09:22 INFERTILITY MEDICAL ASSISTANT Alina Castaneda MD [facility]-38104 Level 3 Est. Patient 14:36:26 INFERTILITY MEDICAL ASSISTANT Marvel Charles [facility]-78784 Level 3 Est. Patient 13:34:47 INFERTILITY MEDICAL ASSISTANT Alina Castaneda MD [facility]-15991 Level 3 Est. Patient 19:52:08 INFERTILITY MEDICAL ASSISTANT Alina Castaneda MD [facility]-97800 Level 3 Est. Patient 10:01:51 INFERTILITY MEDICAL ASSISTANT Marvel [facility]-60619 Level 3 Est. Patient 21:54:06 CDT Vanessa Hickey MD [facility]-53014 Level 3 Est. Patient 08:54:46 CDT Alina Castaneda MD [facility]79796 Level 3 Est. Patient 09:32:11 CDT Marvel Charles [facility]-75091 Level 3 Est. Patient 12:02:49 CDT Alina Castaneda MD [facility]-63935 Level 3 Est. Patient 19:17:33 CDT Alina Castaneda MD [facility]-73450 Level 3 Est. Patient 13:19:10 CDT Marvel Thurstonestela [facility]-89956 Level 3 Est. Patient 08:20:05 CDT Alina Castaneda MD [facility]-19265 Level 3 Est. Patient 15:17:18 CDT Alina Castaneda MD [facility]-30050 Level 3 Est. Patient 14:25:36 INFERTILITY MEDICAL ASSISTANT Marvel [facility]-11101 Level 3 Est. Patient 10:09:15 INFERTILITY MEDICAL ASSISTANT Marvel [facility]-43014 Level 3 Est. Patient 21:28:43 CDT Alina Castaneda MD [facility]-85612 Level 3 Est. Patient 15:20:11 CDT Marvel Gurdeepajayestela [facility]-08669 Level 4 Est. Patient 19:08:12 CDT Alina Castaneda MD [facility]-62508 Level 3 Est. Patient 15:06:39 CDT Marvel Araceli [facility]-04645 Level 4 Est. Patient 17:48:15 CDT Alina Castaneda MD [facility]-14648 Level 3 Est. Patient 14:53:49 CDT Alina Castaneda MD [facility]86502 Level 3 Est. Patient 09:35:16 CDT Alina Castaneda MD [facility]-14269 Level 3 Est. Patient 12:23:22 CDT Alina Castaneda MD [facility]-57277 Level 3 Est. Patient 16:19:15 CDT Alina Castaneda MD [facility]-89815 Level 3 Est. Patient 21:39:56 INFERTILITY MEDICAL ASSISTANT Alina Castaneda MD [facility] [place]-[address] Level 4 Est. Patient 14:12:56 INFERTILITY MEDICAL ASSISTANT Alina Castaneda MD [facility] Level 2 Est. Patient 15:34:57 INFERTILITY MEDICAL ASSISTANT Alina Castaneda MD [facility]22 Level 3 Est. Patient 12:17:04 INFERTILITY MEDICAL ASSISTANT Alina Castaneda MD [facility]60205 Level 3 Est. Patient 09:18:18 INFERTILITY MEDICAL ASSISTANT [facility]-99301 Level 2 Est. Patient 21:50:24 CDT Alina Castaneda MD [facility] [place]-[address]54 Level 3 Est. Patient 09:17:28 CDT [facility]-89764 Level 4 Est. Patient 18:54:02 CDT Alina Castaneda MD [facility] [place]-16541 Level 3 Est. Patient 10:47:10 CDT Alina Castaneda MD [facility] [place]-58010 Level 3 Est. Patient 09:22:20 CDT [facility]-94265 Level 3 Est. Patient 16:39:43 CDT [facility]-41610 Level 3 Est. Patient 16:05:16 CDT Alina Castaneda MD [facility]37830 Level 3 Est. Patient 00:29:15 CDT Alina Castaneda MD PhD [facility] CPT-23694 Level 3 Est. Patient 10:49:22 INFERTILITY MEDICAL ASSISTANT Marvel [facility] CPT-44831 Level 3 Est. Patient 21:30:19 INFERTILITY MEDICAL ASSISTANT Alina Castaneda MD PhD [facility] CPT-20985 Level 4 Est. Patient 17:04:11 INFERTILITY MEDICAL ASSISTANT [place] [facility] CPT-77194 Level 3 Est. Patient 15:34:11 INFERTILITY MEDICAL ASSISTANT [facility]38327 Level 2 Est. Patient 12:51:58 INFERTILITY MEDICAL ASSISTANT Alina Castaneda MD [facility] CPT-13622 Level 3 Est. Patient 13:20:01 INFERTILITY MEDICAL ASSISTANT Alina Castaneda MD PhD [facility] CPT-98645 Level 3 Est. Patient 09:23:35 CDT Alina Castaneda MD PhD [facility] Procedures Code Procedure Name Date Entry Date Standard Description CPT-31374 Bladder Scan 14:39:01 INFERTILITY MEDICAL ASSISTANT CPT-TCMM Transitional Care Mgmt-Moderate 10:30:19 INFERTILITY MEDICAL ASSISTANT CPT-18856 Bladder Scan 12:36:44 CDT CPT-28732 Bladder Scan 21:54:06 CDT CPT-G0008 Administration of Influenza Virus Vaccine 13:05:26 CDT CPT-84656 Fluzone Quadrivalent Intramuscular Suspension 0.5 ML 13: 05:26 CDT CPT-77968 Administration single or combination vaccine inc oral 11 :49:51 CDT CPT-79084 Pneumovax 11:49:51 CDT CPT-65350 Ribs unilateral 2V 12:37:22 INFERTILITY MEDICAL ASSISTANT CPT-32692 Chest 2V Frontal and Lat 17:15:26 CDT CPT-43282 Abx/Therapy Injection 18:54:02 CDT CPT-J0696 Rocephin 1000 mg (Ceftriaxone) 16:00:32 CDT CPT-19765 Chest 2V Frontal and Lat 15:26:45 CDT CPT-62657 Chest 2V Frontal and Lat 10:23:27 CDT CPT-79652 Venipuncture Draw Fee 10:11:00 CDT CPT-43496 Administration single or combination vaccine inc oral 11 :56:38 CDT CPT-23610 Influenza split virus > age 3 11:56:38 CDT CPT-30034 Venipuncture Draw Fee 08:49:54 INFERTILITY MEDICAL ASSISTANT CPT-68133 EKG Trac and Interp 17:54:19 INFERTILITY MEDICAL ASSISTANT
--- OUTSIDE RECORDS SUMMARY | 2018-07-02 16:32 | XMS REPORT | Clinical Summary ---
Author Author Admin, TERELL Organization [facility] Address Unknown Phone Unavailable Allergies, Adverse 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 Erazo FUR CUTTING MACHINE OPERATOR Benign paroxysmal positional vertigo Vertigo, benign paroxysmal position 386.11 Inactive Mima Erazo FUR CUTTING MACHINE OPERATOR Benign paroxysmal positional vertigo High-risk sexual behavior V69.2 Active Alina Castaneda MD PhD High-risk sexual behavior Erectile dysfunction 302.72 Active Alina Castaneda MD PhD Psychosexual dysfunction with inhibited sexual excitement Constipation 564.00 Active Alina Castaneda MD PhD Constipation, unspecified Skin lesion 709.9 Active Alina Castaneda MD PhD Unspecified disorder of skin and subcutaneous tissue Malaise and fatigue 780.79 Active Cherelle Speaks FUR CUTTING MACHINE OPERATOR Other malaise and fatigue Diarrhea 787.91 Active Cherelle Speaks FUR CUTTING MACHINE OPERATOR Diarrhea PHARYNGITIS 462 Active Cherelle Speaks FUR CUTTING MACHINE OPERATOR Acute pharyngitis Colitis 558.9 Active Mima Erazo FUR CUTTING MACHINE OPERATOR Other and unspecified noninfectious gastroenteritis and colitis WOUND, OPEN, NOSE ICD-873.20 Inactive Alina Castaneda MD PhD DIABETES, TYPE 2 ICD-250.00 Inactive Alina Castaneda MD PhD HYPERTENSION ICD-401.9 Inactive Alina Castaneda MD PhD URI ICD-465.9 Inactive Alina Castaneda MD PhD CHEST PAIN ICD-786.50 Inactive Alina Castaneda MD PhD FH STROKE ICD-V17.1 Inactive Marvel Charles CLIENT ADMINISTRATOR FATIGUE ICD-780.79 Inactive Alina Castaneda MD [...] PhD Chest pain, atypical ICD-786.59 Inactive Alina Castanead MD PhD Medication List Medication Instructions Start Date Stop Date Generic Name NDC Status Provider Patient Instruction COLACE 100 MG CAPS 1 pill by mouth twice daily, for constipation DOCUSATE SODIUM 47804462181 No Longer Active Mima Erazo APRN Active FLONASE ALLERGY RELIEF 50 MCG/ACT NASAL SUSP One spray each nostril BID x 1 week then daily FLUTICASONE PROPIONATE 00253336779 Active Mimacecily Erazo APRN Active BD PEN NEEDLE MINI U/F 31G X 5 MM MISC 4 a day INSULIN PEN NEEDLE 86555859852 Active Mallashondaeh Ziglari CLIENT ADMINISTRATOR Active AMITIZA 24 MCG ORAL CAPS Take one capsule BID for constipation LUBIPROSTONE 60815672160 Active Mimacecily Erazo APRN Active LEVEMIR FLEXTOUCH 100 UNIT/ML SC SOPN 75 units SQ each evening, for diabetes INSULIN DETEMIR 55027201480 Active Mima Erazo APRN Active TRUEPLUS LANCETS 30G MISC 3 a day LANCETS 82205142176 Active Mallashondaeh Ziglari CLIENT ADMINISTRATOR Active TOLTERODINE TARTRATE 2 MG TABS 1 pill twice daily, for bladder TOLTERODINE TARTRATE 32552723731 No Longer Active Vanessa Hickey MD Active AMITIZA 24 MCG ORAL CAPS Take one capsule BID for constipation. LUBIPROSTONE 32513710286 No Longer Active Vanessa Hickey MD Active LOMOTIL 2.5-0.025 MG ORAL TABS take 1-2 tabs PO after each stool, no more than 8 in 24 hours DIPHENOXYLATE-ATROPINE 56599915274 Active Grace Nascimento RMA Active FLUVOXAMINE MALEATE 100 MG ORAL TABS take one tab every AM et HS, and take 1/ 2 tab at noon FLUVOXAMINE MALEATE 26196597697 Active Gracekailee Nascimento RMA Active METOPROLOL SUCCINATE 100 MG [id number]-AGQ 1 by mouth daily for blood pressure METOPROLOL SUCCINATE 49163967583 No Longer Active Grace Nascimento RMA Active METFORMIN HCL ER 500 MG [id number]-TDY Take three tablets by mouth everyday METFORMIN HCL 80709412492 No Longer Active Grace Nascimento RMA Active LOVAZA 1 GM CAPS 4 daily (for triglycerides) OMEGA-3- ACID ETHYL ESTERS 92599459040 No Longer Active Grace Nascimento RMA Active TRAZODONE HCL 100 MG ORAL TABS 1 tab by mouth for sleep TRAZODONE HCL 21633732108 No Longer Active Grace Nascimento RMA Active NOVOFINE 32G X 6 MM MISC use one four times per day INSULIN PEN NEEDLE 72182060562 No Longer Active Grace Nascimento RMA Active BACTROBAN 2 % CREAM Apply to affected area BID for up to 10 days MUPIROCIN CALCIUM 39205608545 No Longer Active Grace Nascimento RMA Active ZOFRAN 4 MG TABS 1 po q4hr PRN Nausea ONDANSETRON HCL 02732233498 Active Salina Han RMA Active KEFLEX 500 MG CAP 1 po BID x 7 days CEPHALEXIN 45054508291 No Longer Active Cherelle Avila APRN Active FLUVOXAMINE MALEATE 100 MG TABS Take one (1) tablet by mouth am, 1/2 at noon FLUVOXAMINE MALEATE 98479555035 No Longer Active Mima Erazo FUR CUTTING MACHINE OPERATOR Active CORICIDIN HBP CONGESTION/COUGH 10-200 MG ORAL CAPS Take as directed on box as needed for cold/flu symptoms DEXTROMETHORPHAN-GUAIFENESIN 49738862546 Active Cherelle Speaks FUR CUTTING MACHINE OPERATOR Active OMEGA-3 300 MG ORAL CAPS 4 caps by mouth daily OMEGA-3 FATTY ACIDS 69799083641 Active Mima Fierroum FUR CUTTING MACHINE OPERATOR Active FLUVOXAMINE MALEATE 100 MG ORAL TABS Take 1/2 tab at noon FLUVOXAMINE MALEATE 74210446835 No Longer Active Cherelle Avila FUR CUTTING MACHINE OPERATOR Active [facility] LUBRICANT EYE DROPS 0.4-0.3 % OPHTH SOLN POLYETHYL GLYCOL-PROPYL GLYCOL 66466867689 Active Mima Erazo FUR CUTTING MACHINE OPERATOR Active CLONAZEPAM 1 MG TABS 1/2 pill by mouth three times daily CLONAZEPAM 90421470704 Active Mima Fierroum FUR CUTTING MACHINE OPERATOR Active MIRALAX POWD 17g by mouth daily, for constipation POLYETHYLENE GLYCOL 3350 60054384663 Active Alina Castaneda MD PhD Active HYDROCODONE-ACETAMINOPHEN 5-325 MG TABS 2 tabs by mouth three times daily for pain HYDROCODONE-ACETAMINOPHEN 54425349207 Active Mima Erazo FUR CUTTING MACHINE OPERATOR Active HUMALOG KWIKPEN 100 UNIT/ML SC SOPN 20 units with breakfast, 10 units with lunch, 10 units with dinner, for diabetes INSULIN LISPRO (HUMAN ) 87458175083 Active Alina Castaneda MD PhD Active LATUDA 120 MG ORAL TABS 1 pill by mouth nightly LURASIDONE HCL 09564350555 Active Alina Castaneda MD PhD Active TRUETEST TEST STRP check blood sugars 3x/day GLUCOSE BLOOD 72292153888 Active Marvel MENDOZAP Active ACCU-CHEK ROSA UZMA Use device to check blood sugars BLOOD GLUCOSE MONITORING SUPPL 49067621790 No Longer Active Marvel Charles CLIENT ADMINISTRATOR Active ACCU-CHEK ROSA INVITR STRP use strips with device to check blood sugars 3 times daily GLUCOSE BLOOD 14430126571 No Longer Active Marvel MARROQUIN Active VERAPAMIL HCL ER 180 MG ORAL CR-TABS 1 pill by mouth twice daily, for migraine prevention VERAPAMIL HCL 39832827371 Active Alina Castaneda MD PhD Active CYCLOBENZAPRINE HCL 10 MG TABS 1 tablet by mouth three times daily, scheduled CYCLOBENZAPRINE HCL 62046015739 No Longer Active Alina Castaneda MD PhD Active HUMALOG 100 UNIT/ML SOLN Take 20 units with breakfast, 10u with lunch and suppetr. INSULIN LISPRO (HUMAN) 48723480065 No Longer Active Alina Castaneda MD PhD Active TRUETEST TEST STRP check sugars 4x/day GLUCOSE BLOOD 35835141536 No Longer Active Alina Castaneda MD PhD Active MORPHINE SULFATE 30 MG TABS 1 pill by mouth twice daily, for pain MORPHINE SULFATE 59886295342 Active Mima Erazo FUR CUTTING MACHINE OPERATOR Active ACYCLOVIR 400 MG ORAL TABS 1 pill three times daily x 5 days, for cold sore outbreak ACYCLOVIR 16426543537 No Longer Active Alina Castaneda MD PhD Active PENICILLIN V POTASSIUM 500 MG TABS 1 pill by mouth three times daily PENICILLIN V POTASSIUM 52287830479 No Longer Active Alina Castaneda MD PhD Active UROXATRAL 10 MG [id number]-YUB Take 1 tablet by mouth daily ALFUZOSIN HCL 48842330816 No Longer Active Alina Castaneda MD PhD Active THIOTHIXENE 5 MG CAPS by mouth twice a day THIOTHIXENE 67110979131 No Longer Active Alina Castaneda MD PhD Active ZYPREXA 7.5 MG TABS 1 at HS OLANZAPINE 09080214414 No Longer Active Alina Castaneda MD PhD Active BD INSULIN SYRINGE 28G X 1/2" 1 ML MISC 1 four times per day INSULIN SYRINGE-NEEDLE U-100 77774440660 Active Marevl Thurstonari CLIENT ADMINISTRATOR Active DETROL LA 4 MG [id number]-LOC Take 1 tablet by mouth daily TOLTERODINE TARTRATE 23578280030 No Longer Active Alina Castaneda MD PhD Active TERESE CONTOUR TEST STRP monitor blood sugars 3x/day GLUCOSE BLOOD 17327472144 No Longer Active Alina Castaneda MD PhD Active EQL TRUETEST TEST STRP Test blood sugar TID GLUCOSE BLOOD 87649229244 No Longer Active Alina Castaneda MD PhD Active FLUTICASONE PROPIONATE 50 MCG/ACT SUSP 2 sprays each nostril qDay x 30 days FLUTICASONE PROPIONATE 26646040288 No Longer Active Alina Castaneda MD PhD Active IBUPROFEN 200 MG TABS 1 Q 6 hr. PRN IBUPROFEN 07041440326 No Longer Active Alina Castaneda MD PhD Active NIACIN ER 500 MG CR-TABS 4 qHS (for triglycerides) NIACIN 89662571064 No Longer Active Alina Castaneda MD PhD Active ALFUZOSIN HCL ER 10 MG CL28W-SLI 1 tablet daily ALFUZOSIN HCL 91495925078 Active Vanessa Hickey MD Active SAPHRIS 5 MG SUBL by mouth twice a day ASENAPINE MALEATE 68286506932 No Longer Active Marvel MARROQUIN Active ACETAMINOPHEN 500 MG TABS 2 Q 6 hr. PRN ACETAMINOPHEN 44428037396 No Longer Active Marvel Thurstonari LOPEZ Active ORPHENADRINE CITRATE ER 100 MG [id number]-YNC 1 every 12 hr. as needed ORPHENADRINE CITRATE 79212235796 No Longer Active Alina Castaneda MD PhD Active NIACIN CR 500 MG CR-TABS 2 qHS NIACIN 11129056739 No Longer Active Alina Castaneda MD PhD Active AMOXICILLIN 500 MG CAPS 2 po BID x 10 days AMOXICILLIN 28719092432 No Longer Active Alina Castaneda MD PhD Active HYDROCODONE-ACETAMINOPHEN 7.5-325 MG TABS 1 four times a day as needed for pain HYDROCODONE-ACETAMINOPHEN 12331819886 No Longer Active Alina Castaneda MD PhD Active DOXEPIN HCL 10 MG CAPS Take 1 tablet by mouth daily DOXEPIN HCL 57471487029 No Longer Active Salina Han [facility] Active NAVANE 10 MG CAPS 1/2 tablet twice a day THIOTHIXENE No Longer Active Salina Han [facility] Active CYCLOBENZAPRINE HCL 10 MG TABS 1/2 tablet by mouth every 8 hours as needed for muscle spasms CYCLOBENZAPRINE HCL 42686963531 No Longer Active Alina Castaneda MD PhD Active BACTROBAN 2 % CREAM apply to ear and nose twice daily MUPIROCIN CALCIUM 91934461731 No Longer Active Alina Castaneda MD PhD Active HYDROCODONE-ACETAMINOPHEN 5-325 MG TABS take one tablet by mouth every four hours as needed for pain HYDROCODONE-ACETAMINOPHEN 60595483094 No Longer Active Alina Castaneda MD PhD Active ZOLPIDEM TARTRATE 10 MG TABS take at bedtime ZOLPIDEM TARTRATE 25500297661 Active Alina Castaneda MD PhD Active ZYPREXA 5 MG TABS take one tablet by mouth every evening OLANZAPINE 15252245966 No Longer Active Alina Castaneda MD PhD Active ALBUTEROL SULFATE 0.083 % NEBU SOLN one vial per nebulizer TID and PRN cough/ soa ALBUTEROL SULFATE 68268109080 No Longer Active Alina Castaneda MD PhD Active GUAIFENESIN 600 MG [id number] 1 tablet by mouth twice daily if needed for cough GUAIFENESIN 55992544040 No Longer Active Marvel MARROQUIN Active AZITHROMYCIN 500 MG SOLR 1 po q day AZITHROMYCIN 07459158340 No Longer Active Alina Castaneda MD PhD Active PROMETHAZINE-CODEINE 6.25-10 MG/5ML SYRP 1 tsp po q 6 hours prn cough PROMETHAZINE-CODEINE 58934088217 No Longer Active Alina Castaneda MD PhD Active CEFDINIR 300 MG CAPS by mouth twice a day CEFDINIR 18607959366 No Longer Active Alina Castaneda MD PhD Active METFORMIN HCL 500 MG IL55G-OHH Take 3 tablets by mouth everyday METFORMIN HCL 57423198901 No Longer Active Alina Castaneda MD PhD Active LEVEMIR 100 UNIT/ML SOLN 90 units SQ qHS INSULIN DETEMIR 02498065914 No Longer Active Marvel MARROQUIN Active TOPROL XL 100 MG RX38S-LVZ 1 @ HS METOPROLOL SUCCINATE 98629363029 No Longer Active Marvel MARROQUIN Active ALLOPURINOL 300 MG TABS Take one by mouth daily ALLOPURINOL 10175680229 Active Mima Erazo FUR CUTTING MACHINE OPERATOR Active ZYPREXA 10 MG TABS Take one by mouth daily OLANZAPINE 65711672900 No Longer Active Alina Castaneda MD PhD Active NOVOLOG 100 UNIT/ML SOLN 40 units with every meal INSULIN ASPART 42446563464 No Longer Active Alina Castaneda MD PhD Active VERAPAMIL HCL CR 120 MG TAB CR 1 qPM VERAPAMIL HCL 80300395059 No Longer Active Salina ROJAS Active ZYPREXA 15 MG TABS Take 1 tablet by mouth daily OLANZAPINE 59139502677 No Longer Active Marvel MARROQUIN Active LISINOPRIL 20 MG TABS 1 BID LISINOPRIL 41008356643 Active Alina Castaneda MD PhD Active ALBUTEROL SULFATE (2.5 MG/3ML) 0.083% NEBU 1 neb tid and prn cough ALBUTEROL SULFATE 25121834730 No Longer Active Alina Castaneda MD PhD Active TRAVATAN Z 0.004 % SOLN 1 gtt each eye daily TRAVOPROST 32834461130 Active CRYSTAL Suarez Active LANTUS 100 UNIT/ML SOLN 60 units sq q hs INSULIN GLARGINE 72928925228 No Longer Active CRYSTAL Suarez Active ALBUTEROL SULFATE (2.5 MG/3ML) 0.083% NEBU 1 neb tid and prn cough ALBUTEROL SULFATE (2.5 MG/3ML) 0.083% NEBU 717541 ALBUTEROL SULFATE Inactive ZYPREXA 15 MG TABS Take 1 tablet by mouth daily ZYPREXA 15 MG TABS 047222 OLANZAPINE Inactive VERAPAMIL HCL CR 120 MG TAB CR 1 qPM VERAPAMIL HCL CR 120 MG TAB CR VERAPAMIL HCL Inactive ZYPREXA 10 MG TABS Take one by mouth daily ZYPREXA 10 MG TABS 947505 OLANZAPINE Inactive TOPROL XL 100 MG [id number] 1 @ HS TOPROL XL 100 MG SW61R-ROL METOPROLOL SUCCINATE Inactive LEVEMIR 100 UNIT/ML SOLN 90 units SQ qHS LEVEMIR 100 UNIT/ML SOLN INSULIN DETEMIR Inactive PROMETHAZINE-CODEINE 6.25-10 MG/5ML SYRP 1 tsp po q 6 hours prn cough PROMETHAZINE-CODEINE 6.25-10 MG/5ML SYRP 371553 PROMETHAZINE- CODEINE Inactive GUAIFENESIN 600 MG ST93B-TRS 1 tablet by mouth twice daily if needed for cough GUAIFENESIN 600 MG [id number]-KDK GUAIFENESIN Inactive ALBUTEROL SULFATE 0.083 % NEBU SOLN one vial per nebulizer TID and PRN cough/ soa ALBUTEROL SULFATE 0.083 % NEBU SOLN 112520 ALBUTEROL SULFATE Inactive ZYPREXA 5 MG TABS take one tablet by mouth every evening ZYPREXA 5 MG TABS 868023 OLANZAPINE Inactive HYDROCODONE-ACETAMINOPHEN 5-325 MG TABS take one tablet by mouth every four hours as needed for pain HYDROCODONE-ACETAMINOPHEN 5-325 MG TABS 279018 HYDROCODONE-ACETAMINOPHEN Inactive BACTROBAN 2 % CREAM apply to ear and nose twice daily BACTROBAN 2 % CREAM 084588 MUPIROCIN CALCIUM Inactive CYCLOBENZAPRINE HCL 10 MG TABS 1/2 tablet by mouth every 8 hours as needed for muscle spasms CYCLOBENZAPRINE HCL 10 MG TABS 020910 CYCLOBENZAPRINE HCL Inactive NAVANE 10 MG CAPS 1/2 tablet twice a day NAVANE 10 MG CAPS THIOTHIXENE Inactive DOXEPIN HCL 10 MG CAPS Take 1 tablet by mouth daily DOXEPIN HCL 10 MG CAPS 1499569 DOXEPIN HCL Inactive HYDROCODONE-ACETAMINOPHEN 7.5-325 MG TABS 1 four times a day as needed for pain HYDROCODONE-ACETAMINOPHEN 7.5-325 MG TABS 909745 HYDROCODONE-ACETAMINOPHEN Inactive NIACIN CR 500 MG CR-TABS 2 qHS NIACIN CR 500 MG CR- TABS NIACIN Inactive ORPHENADRINE CITRATE ER 100 MG [id number] 1 every 12 hr. as needed ORPHENADRINE CITRATE ER 100 MG [id number]-ELH ORPHENADRINE CITRATE Inactive ACETAMINOPHEN 500 MG TABS 2 Q 6 hr. PRN ACETAMINOPHEN 500 MG TABS 786072 ACETAMINOPHEN Inactive SAPHRIS 5 MG SUBL by mouth twice a day SAPHRIS 5 MG SUBL ASENAPINE MALEATE Inactive NIACIN ER 500 MG CR-TABS 4 qHS (for triglycerides) NIACIN ER 500 MG CR-TABS NIACIN Inactive IBUPROFEN 200 MG TABS 1 Q 6 hr. PRN IBUPROFEN 200 MG TABS 887626 IBUPROFEN Inactive FLUTICASONE PROPIONATE 50 MCG/ACT SUSP 2 sprays each nostril qDay x 30 days FLUTICASONE PROPIONATE 50 MCG/ACT SUSP 720388 FLUTICASONE PROPIONATE Inactive EQL TRUETEST TEST STRP Test blood sugar TID EQL TRUETEST TEST STRP GLUCOSE BLOOD Inactive TERESE CONTOUR TEST STRP monitor blood sugars 3x/day TERESE CONTOUR TEST STRP GLUCOSE BLOOD Inactive DETROL LA 4 MG [id number]-RIK Take 1 tablet by mouth daily DETROL LA 4 MG [id number]-HPW TOLTERODINE TARTRATE Inactive ZYPREXA 7.5 MG TABS 1 at HS ZYPREXA 7.5 MG TABS 484105 OLANZAPINE Inactive THIOTHIXENE 5 MG CAPS by mouth twice a day THIOTHIXENE 5 MG CAPS 432251 THIOTHIXENE Inactive UROXATRAL 10 MG UK24L-TBE Take 1 tablet by mouth daily UROXATRAL 10 MG SE21O-WES ALFUZOSIN HCL Inactive ACYCLOVIR 400 MG ORAL TABS 1 pill three times daily x 5 days, for cold sore outbreak ACYCLOVIR 400 MG ORAL TABS 109017 ACYCLOVIR Inactive TRUETEST TEST STRP check sugars 4x/day TRUETEST TEST STRP GLUCOSE BLOOD Inactive HUMALOG 100 UNIT/ML SOLN Take 20 units with breakfast, 10u with lunch and suppetr. HUMALOG 100 UNIT/ML SOLN INSULIN LISPRO ( HUMAN) Inactive CYCLOBENZAPRINE HCL 10 MG TABS 1 tablet by mouth three times daily, scheduled CYCLOBENZAPRINE HCL 10 MG TABS 886417 CYCLOBENZAPRINE HCL Inactive ACCU-CHEK ROSA INVITR STRP use strips with device to check blood sugars 3 times daily ACCU-CHEK ROSA INVITR STRP GLUCOSE BLOOD Inactive ACCU-CHEK ROSA UZMA Use device to check blood sugars ACCU-CHEK ROSA UZMA BLOOD GLUCOSE MONITORING SUPPL Inactive FLUVOXAMINE MALEATE 100 MG ORAL TABS Take 1/2 tab at noon FLUVOXAMINE MALEATE 100 MG ORAL TABS 168491 FLUVOXAMINE MALEATE Inactive FLUVOXAMINE MALEATE 100 MG TABS Take one (1) tablet by mouth am, 1/2 at noon FLUVOXAMINE MALEATE 100 MG TABS 534566 FLUVOXAMINE MALEATE Inactive BACTROBAN 2 % CREAM Apply to affected area BID for up to 10 days BACTROBAN 2 % CREAM 251570 MUPIROCIN CALCIUM Inactive NOVOFINE 32G X 6 MM MISC use one four times per day NOVOFINE 32G X 6 MM MISC INSULIN PEN NEEDLE Inactive TRAZODONE HCL 100 MG ORAL TABS 1 tab by mouth for sleep TRAZODONE HCL 100 MG ORAL TABS 893059 TRAZODONE HCL Inactive LOVAZA 1 GM CAPS 4 daily (for triglycerides) LOVAZA 1 GM CAPS 672027 IUGET-3-BLNL ETHYL ESTERS Inactive METFORMIN HCL ER 500 MG GM06A-PHW Take three tablets by mouth everyday METFORMIN HCL ER 500 MG [id number]-NTL METFORMIN HCL Inactive METOPROLOL SUCCINATE 100 MG WK84M-TZM 1 by mouth daily for blood pressure METOPROLOL SUCCINATE 100 MG RZ89Q-FHZ METOPROLOL SUCCINATE Inactive AMITIZA 24 MCG ORAL CAPS Take one capsule BID for constipation. AMITIZA 24 MCG ORAL CAPS LUBIPROSTONE Inactive TOLTERODINE TARTRATE 2 MG TABS 1 pill twice daily, for bladder TOLTERODINE TARTRATE 2 MG TABS 272412 TOLTERODINE TARTRATE Inactive COLACE 100 MG CAPS 1 pill by mouth twice daily, for constipation COLACE 100 MG CAPS 1388209 DOCUSATE SODIUM Inactive CEFDINIR 300 MG CAPS by mouth twice a day CEFDINIR 300 MG CAPS 604507 CEFDINIR Inactive AZITHROMYCIN 500 MG SOLR 1 po q day AZITHROMYCIN 500 MG SOLR 71353614423 AZITHROMYCIN Inactive AMOXICILLIN 500 MG CAPS 2 po BID x 10 days AMOXICILLIN 500 MG CAPS 008119 AMOXICILLIN Inactive PENICILLIN V POTASSIUM 500 MG TABS 1 pill by mouth three times daily PENICILLIN V POTASSIUM 500 MG TABS 525875 PENICILLIN V POTASSIUM Inactive KEFLEX 500 MG CAP 1 po BID x 7 days KEFLEX 500 MG CAP 391316 CEPHALEXIN Inactive Immunizations Vaccine Administration Date Value [...] Fluvirin, Fluarix, Agriflu(>=18 yo)) Fluzone (>3 yrs.) [[id number]] Influenza, seasonal, injectable pneumococcal immunization administered Pneumovax [...] Panel - Chemistry sodium, serum 137 mmol/L 593-608 8675/10/12 potassium, serum 4.8 mmol/L 3.5-5.2 chloride, serum 102 mmol/L 98-107 carbon dioxide, venous blood 27.6 mmol/L 21.0-32.0 blood glucose 168 mg/dL 65-110 calcium, serum 9.0 mg/dL 8.5-10.1 urea nitrogen, blood 15 mg/dL 7-18 creatinine, serum 1.04 mg/dL 0.55-1.30 sodium, serum 138 mmol/L 070-117 5479/11/11 potassium, serum 4.7 mmol/L 3.5-5.2 chloride, serum [...] % 11.6-14.8 platelet count 240 10^3/MM^3 10*3/mm3 051-183 6695/11/11 leukocyte count, blood 9.6 10^3/MM^3 10*3/mm3 4.6-10.2 [...] 4.7 mg/dL 2.6-7.2 cholesterol, serum 142 mg/dL 222-541 4247/06/26 triglyceride, serum, fasting 272 mg/dL 30-200 HDL [...] negative Encounters Code Encounter Date Provider Facility CPT-75434 Level 3 Est. Patient 16:27:51 CDT Mima Erazo APRN [facility] CPT-73566 Level 3 Est. Patient 14:39:00 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 Vanessa Hickey MD [facility]-45368 Level 2 Est. Patient 18:43:34 CDT Mima Erazo [facility] CPT-16866 Level 3 Est. Patient 16:22:09 CDT Cherelle Avila [facility]-55542 Level 4 Est. Patient 17:55:14 CDT Mima Erazo [facility]-45822 Level 2 Est. Patient 17:13:21 CDT Alina Castaneda MD [facility]23154 Level 3 Est. Patient 14:46:15 CDT Vanessa Hickey MD [facility]-97177 Level 3 Est. Patient 09:34:56 CDT Alina Castaneda MD [facility]33060 Level 3 Est. Patient 21:40:19 CDT Mima Erazo [facility]-53446 Level 3 Est. Patient 09:26:40 CDT Marvel Charles [facility]96412 Level 3 Est. Patient 12:36:43 CDT Vanessa Hickey MD [facility]64672 Level 3 Est. Patient 12:57:49 CDT Vanessa Hickey MD [facility]-02678 Level 3 Est. Patient 00:28:25 CDT Alina Castaneda MD [facility]-46697 Level 2 Est. Patient 12:52:14 CDT Alina Castaneda MD [facility]76166 Level 3 Est. Patient 11:51:18 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 Alina Castaneda MD [facility]84765 Level 3 Est. Patient 10:09:22 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 Alina Castaneda MD [facility]10560 Level 3 Est. Patient 14:36:26 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 Marvel Charles [facility]-73087 Level 3 Est. Patient 13:34:47 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 Alina Castaneda MD [facility]-66008 Level 3 Est. Patient 19:52:08 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 Alina Castaneda MD [facility]-84763 Level 3 Est. Patient 10:01:51 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 Marvel Gurdeepajayestela [facility]-66983 Level 3 Est. Patient 21:54:06 CDT Vanessa Hickey MD [facility]-53114 Level 3 Est. Patient 08:54:46 CDT Alina Castaneda MD [facility]70886 Level 3 Est. Patient 09:32:11 [facility]-74428 Level 3 Est. Patient 12:02:49 CDT Alina Castaneda MD [facility]-55392 Level 3 Est. Patient 19:17:33 CDT Alina Castaneda MD [facility]-76984 Level 3 Est. Patient 13:19:10 CDT Brooksjohn Charles [facility]-55663 Level 3 Est. Patient 08:20:05 CDT Alina Castaneda MD [facility]-66136 Level 3 Est. Patient 15:17:18 CDT Alina Castaneda MD [facility]-10839 Level 3 Est. Patient 14:25:36 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 Brookslashondanivia Araceli [facility]-65966 Level 3 Est. Patient 10:09:15 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 Brookslashondanivia Araceli [facility]-46394 Level 3 Est. Patient 21:28:43 CDT Alina Castaneda MD [facility]-36253 Level 3 Est. Patient 15:20:11 CDT Marvel Charles [facility]-59131 Level 4 Est. Patient 19:08:12 CDT Alina Castaneda MD [facility]-13251 Level 3 Est. Patient 15:06:39 CDT Marvel Charles [facility]-70788 Level 4 Est. Patient 17:48:15 CDT Alina Castaneda MD [facility]-86964 Level 3 Est. Patient 14:53:49 CDT Alina Castaneda MD [facility]-87457 Level 3 Est. Patient 09:35:16 CDT Alina Castaneda MD [facility]-60103 Level 3 Est. Patient 12:23:22 CDT Alina Castaneda MD [facility]-68502 Level 3 Est. Patient 16:19:15 CDT Alina Castaneda MD [facility]-46008 Level 3 Est. Patient 21:39:56 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 Alina Castaneda MD [facility]-75343 Level 4 Est. Patient 14:12:56 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 Alina Castaneda MD [facility]-83897 Level 2 Est. Patient 15:34:57 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 Alina Castaneda MD [facility]-84409 Level 3 Est. Patient 12:17:04 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 Alina Castaneda MD [facility]-45582 Level 3 Est. Patient 09:18:18 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 Marvel Charles [facility]-24688 Level 2 Est. Patient 21:50:24 CDT Alina Castaneda MD [facility]-69195 Level 3 Est. Patient 09:17:28 CDT Marvel Araceli [facility]-27351 Level 4 Est. Patient 18:54:02 CDT Alina Castaneda MD [facility]28192 Level 3 Est. Patient 10:47:10 CDT Alina Castaneda MD [facility]26363 Level 3 Est. Patient 09:22:20 CDT Marvel Araceli [facility]65185 Level 3 Est. Patient 16:39:43 CDT Marvel Araceli [facility] [place]-[id number] Level 3 Est. Patient 16:05:16 CDT Alina Castaneda MD [id number] Level 3 Est. Patient 00:29:15 CDT Alina Castaneda MD [facility]35101 Level 3 Est. Patient 10:49:22 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 [place] [facility] [place]-[address] Level 3 Est. Patient 21:30:19 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 Alina Castaneda MD [id number] Level 4 Est. Patient 17:04:11 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 [place] [facility] [place]-[address]42 Level 3 Est. Patient 15:34:11 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 [place] [facility] [place]-9[address]78 Level 2 Est. Patient 12:51:58 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 Alina Castaneda MD [facility]48076 Level 3 Est. Patient 13:20:01 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 Alina Castaneda MD [facility]78203 Level 3 Est. Patient 09:23:35 CDT Alina Castaneda MD PhD 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
--- OUTSIDE RECORDS SUMMARY | 2018-07-02 16:34 | XMS REPORT | Clinical Summary ---
Author Author Admin, TERELL Organization [facility] [employer] Address Unknown Phone Unavailable Allergies, Adverse [...] chest pain Chest pain, atypical 786.59 Resolved Ailna Castaneda MD PhD Other chest pain Urinary Retention 788.20 Active Vanessa Hickey MD Retention of urine, unspecified Benign paroxysmal positional vertigo 386.11 Active Mima Erazo SCREW MACHINE OPERATOR SINGLE SPINDLE Benign paroxysmal positional vertigo Vertigo, benign paroxysmal position 386.11 Inactive Mima Erazo SCREW MACHINE OPERATOR SINGLE SPINDLE Benign paroxysmal positional vertigo High-risk sexual behavior V69.2 Active Alina Castaneda MD PhD High-risk sexual behavior Erectile dysfunction 302.72 Active Alina Castaneda MD PhD Psychosexual dysfunction with inhibited sexual excitement Constipation 564.00 Active Alina Castaneda MD PhD Constipation, unspecified Skin lesion 709.9 Active Alina Castaneda MD PhD Unspecified disorder of skin and subcutaneous tissue Malaise and fatigue 780.79 Active Cherelle Speaks SCREW MACHINE OPERATOR SINGLE SPINDLE Other malaise and fatigue Diarrhea 787.91 Active Cherelle Speaks SCREW MACHINE OPERATOR SINGLE SPINDLE Diarrhea PHARYNGITIS 462 Active Cherelle Speaks SCREW MACHINE OPERATOR SINGLE SPINDLE Acute pharyngitis Colitis 558.9 Active Mima Erazo SCREW MACHINE OPERATOR SINGLE SPINDLE Other and unspecified noninfectious gastroenteritis and colitis [...] LANCETS 30G MISC 3x a day LANCETS 12099038501 Active ZainNutmeg 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 [employer]ICAL [employer]ODUCTS SALES ENGINEER Active TRUE METRIX METER W/DEVICE KIT Check blood sugars 3x/day BLOOD GLUCOSE MONITORING SUPPL 25215267323 Active Zaineh 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 [employer]ICAL [employer]ODUCTS SALES ENGINEER Active TRUE METRIX BLOOD GLUCOSE TEST INVITR STRP Check blood sugars 3x/day. GLUCOSE BLOOD 41972737971 Active Brooksiheh 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 [employer]ICAL [employer]ODUCTS SALES ENGINEER Active VITAMIN D 2000 UNIT ORAL CAPS Take one by mouth daily CHOLECALCIFEROL 74653416186 Active Mima Yokum SCREW MACHINE OPERATOR SINGLE SPINDLE Active LATUDA 60 MG ORAL TABS Take one by mouth daily LURASIDONE HCL 98398455877 No Longer Active Mima Yokum SCREW MACHINE OPERATOR SINGLE SPINDLE Active HUMALOG KWIKPEN 100 UNIT/ML SC SOPN sliding scale if needed INSULIN LISPRO (HUMAN) 66369742826 Active Mima Yokum SCREW MACHINE OPERATOR SINGLE SPINDLE Active MORPHINE SULFATE 30 MG ORAL TABS by mouth twice a day MORPHINE SULFATE 20095036405 Active Mima Yokum SCREW MACHINE OPERATOR SINGLE SPINDLE Active TRAZODONE HCL 100 MG TABS 1 every night to prevent headaches TRAZODONE HCL 10083597495 Active Gabrielle Marquez TOWER SWITCH OPERATOR Active LATUDA 60 MG ORAL TABS 1 tab daily LURASIDONE HCL 56583863096 Active Gabrielle Littlel TOWER SWITCH OPERATOR Active CLONAZEPAM 1 MG TABS 1 pill by mouth three times daily CLONAZEPAM 49641862671 Active Gabrielle Littlel TOWER SWITCH OPERATOR Active [facility] MILK OF MAGNESIA 400 MG/5ML ORAL SUSP 30ml by mouth bid prn MAGNESIUM HYDROXIDE 06686746210 Active Mason Loredo MD Active TYLENOL 8 HOUR 650 MG ORAL CR-TABS 1 tab QID prn ACETAMINOPHEN 24705921078 Active Mason Loredo MD Active MYLANTA GAS RELIEF MAXIMUM STR 125 MG ORAL CAPS 30cc every 4 hours prn 12/01 SIMETHICONE 44875424018 Active Mason Loredo MD Active IMODIUM A-D 2 MG ORAL TABS 1 tab QID as needed LOPERAMIDE HCL 92770450923 Active Mason Loredo MD Active FLUVOXAMINE MALEATE 50 MG ORAL TABS 1 tab by mouth daily FLUVOXAMINE MALEATE 50379188413 Active Mason Loredo MD Active TRAVATAN Z 0.004 % SOLN 1 gtt each eye daily TRAVOPROST 57904464533 No Longer Active Mason Loredo MD Active LISINOPRIL 20 MG TABS 1 BID LISINOPRIL 73355646762 No Longer Active Mason Loredo MD Active LEVEMIR FLEXTOUCH 100 UNIT/ML SC SOPN 60 units SQ each evening, for diabetes INSULIN DETEMIR 40422934129 Active Desi Nicholson Active ZOLPIDEM TARTRATE 10 MG TABS take at bedtime ZOLPIDEM TARTRATE 87372613182 No Longer Active Mason Loredo MD Active HYDROCODONE-ACETAMINOPHEN 5-325 MG TABS 2 tabs by mouth three times daily for pain HYDROCODONE-ACETAMINOPHEN 70108979812 No Longer Active Mason Loredo MD Active ZOFRAN 4 MG TABS 1 po q4hr PRN Nausea ONDANSETRON HCL 03465421919 No Longer Active Mason Loredo MD Active LOMOTIL 2.5-0.025 MG ORAL TABS take 1-2 tabs PO after each stool, no more than 8 in 24 hours DIPHENOXYLATE-ATROPINE 93931022592 No Longer Active Mason Loredo MD Active COLACE 100 MG CAPS 1 pill by mouth twice daily, for constipation DOCUSATE SODIUM 45027276779 No Longer Active Mimacecily Erazo APRN Active FLONASE ALLERGY RELIEF 50 MCG/ACT NASAL SUSP One spray each nostril BID x 1 week then daily FLUTICASONE PROPIONATE 91914585382 Active Mima Yokum SCREW MACHINE OPERATOR SINGLE SPINDLE Active BD PEN NEEDLE MINI U/F 31G X 5 MM MISC 4 a day INSULIN PEN NEEDLE 26640816843 Active Mallashondaeh Ziglari [employer]ICAL [employer]ODUCTS SALES ENGINEER Active AMITIZA 24 MCG ORAL CAPS Take one capsule BID for constipation LUBIPROSTONE 29604653696 Active Mimacecily Erazo APRN Active TRUEPLUS LANCETS 30G MISC 3 a day LANCETS 29780080351 Active Maljohn Ziglari [employer]ODUCTS SALES ENGINEER Active TOLTERODINE TARTRATE 2 MG TABS 1 pill twice daily, for bladder TOLTERODINE TARTRATE 64424934253 No Longer Active Vanessa Hickey MD Active AMITIZA 24 MCG ORAL CAPS Take one capsule BID for constipation. LUBIPROSTONE 04070470840 No Longer Active Vanessa Hickey MD Active FLUVOXAMINE MALEATE 100 MG ORAL TABS take one tab every AM et HS, and take 1/ 2 tab at noon FLUVOXAMINE MALEATE 01756795466 Active Grace ROJAS Active METOPROLOL SUCCINATE 100 MG [id number] 1 by mouth daily for blood pressure METOPROLOL SUCCINATE 25736905046 No Longer Active Grace ROJAS Active METFORMIN HCL ER 500 MG [id number]-TFD Take three tablets by mouth everyday METFORMIN HCL 90117572723 No Longer Active Grace ROJAS Active LOVAZA 1 GM CAPS 4 daily (for triglycerides) OMEGA-3- ACID ETHYL ESTERS 18156520194 No Longer Active Grace Azam RMA Active TRAZODONE HCL 100 MG ORAL TABS 1 tab by mouth for sleep TRAZODONE HCL 41991914778 No Longer Active Grace Azam RMA Active NOVOFINE 32G X 6 MM MISC use one four times per day INSULIN PEN NEEDLE 70735987308 No Longer Active Grace Azam RMA Active BACTROBAN 2 % CREAM Apply to affected area BID for up to 10 days MUPIROCIN CALCIUM 79342379003 No Longer Active Grace Azam RMA Active KEFLEX 500 MG CAP 1 po BID x 7 days CEPHALEXIN 05958701910 No Longer Active Cherelle Speaks SCREW MACHINE OPERATOR SINGLE SPINDLE Active FLUVOXAMINE MALEATE 100 MG TABS Take one (1) tablet by mouth am, 1/2 at noon FLUVOXAMINE MALEATE 93832133235 No Longer Active Mima Yokum SCREW MACHINE OPERATOR SINGLE SPINDLE Active CORICIDIN HBP CONGESTION/COUGH 10-200 MG ORAL CAPS Take as directed on box as needed for cold/flu symptoms DEXTROMETHORPHAN-GUAIFENESIN 24485360251 Active Cherelle Speaks SCREW MACHINE OPERATOR SINGLE SPINDLE Active OMEGA-3 300 MG ORAL CAPS 4 caps by mouth daily OMEGA-3 FATTY ACIDS 94451244532 Active Mima Yokum SCREW MACHINE OPERATOR SINGLE SPINDLE Active FLUVOXAMINE MALEATE 100 MG ORAL TABS Take 1/2 tab at noon FLUVOXAMINE MALEATE 36855350162 No Longer Active Cherelle Speaks SCREW MACHINE OPERATOR SINGLE SPINDLE Active [facility] LUBRICANT EYE DROPS 0.4-0.3 % OPHTH SOLN POLYETHYL GLYCOL-PROPYL GLYCOL 35663485799 Active Mima Yokum SCREW MACHINE OPERATOR SINGLE SPINDLE Active MIRALAX POWD 17g by mouth daily, for constipation POLYETHYLENE GLYCOL 3350 53575142108 Active lAina Castaneda MD PhD Active TRUETEST TEST STRP check blood sugars 3x/day GLUCOSE BLOOD 77798955259 Active Mallashondaeh Ziglari ELECT[employer]ICAL [employer]ODUCTS SALES ENGINEER Active ACCU-CHEK ROSA UZMA Use device to check blood sugars BLOOD GLUCOSE MONITORING SUPPL 03944838115 No Longer Active Maljohn Ziglari ELECTRICAL PRODUCTS SALES ENGINEER Active ACCU-CHEK ROSA INVITR STRP use strips with device to check blood sugars 3 times daily GLUCOSE BLOOD 04548252241 No Longer Active Brooksnivia Mackenzieglari ELECT[employer]ICAL PRODUCTS SALES ENGINEER Active VERAPAMIL HCL ER 180 MG ORAL CR-TABS 1 pill by mouth twice daily, for migraine prevention VERAPAMIL HCL 07581273664 Active Mima Erazo SCREW MACHINE OPERATOR SINGLE SPINDLE Active CYCLOBENZAPRINE HCL 10 MG TABS 1 tablet by mouth three times daily, scheduled CYCLOBENZAPRINE HCL 65436556474 No Longer Active Alina Castaneda MD PhD Active HUMALOG 100 UNIT/ML SOLN Take 20 units with breakfast, 10u with lunch and suppetr. INSULIN LISPRO (HUMAN) 45624951722 No Longer Active Alina Castaneda MD PhD Active TRUETEST TEST STRP check sugars 4x/day GLUCOSE BLOOD 75998184280 No Longer Active Alina Castaneda MD PhD Active MORPHINE SULFATE 30 MG TABS 1 pill by mouth twice daily, for pain MORPHINE SULFATE 78007416955 No Longer Active Mason Loredo MD Active ACYCLOVIR 400 MG ORAL TABS 1 pill three times daily x 5 days, for cold sore outbreak ACYCLOVIR 18620526480 No Longer Active Alina Castaneda MD PhD Active PENICILLIN V POTASSIUM 500 MG TABS 1 pill by mouth three times daily PENICILLIN V POTASSIUM 95990657470 No Longer Active Alina Castaneda MD PhD Active UROXATRAL 10 MG LL29H-VNQ Take 1 tablet by mouth daily ALFUZOSIN HCL 76595694636 No Longer Active Alina Castaneda MD PhD Active THIOTHIXENE 5 MG CAPS by mouth twice a day THIOTHIXENE 19995398327 No Longer Active Alina Castaneda MD PhD Active ZYPREXA 7.5 MG TABS 1 at HS OLANZAPINE 56649212635 No Longer Active Alina Castaneda MD PhD Active BD INSULIN SYRINGE 28G X 1/2" 1 ML MISC 1 four times per day INSULIN SYRINGE-NEEDLE U-100 18428774335 Active Maliheh Ziglari ELECT[employer]ICAL [employer]ODUCTS SALES ENGINEER Active DETROL LA 4 MG OQ17Z-OAT Take 1 tablet by mouth daily TOLTERODINE TARTRATE 17650995979 No Longer Active Alina Castaneda MD PhD Active TERESE CONTOUR TEST STRP monitor blood sugars 3x/day GLUCOSE BLOOD 58841608257 No Longer Active Alina Castaneda MD PhD Active EQL TRUETEST TEST STRP Test blood sugar TID GLUCOSE BLOOD 53310605429 No Longer Active Alina Castaneda MD PhD Active FLUTICASONE PROPIONATE 50 MCG/ACT SUSP 2 sprays each nostril qDay x 30 days FLUTICASONE PROPIONATE 66949855906 No Longer Active lAina Castaneda MD PhD Active IBUPROFEN 200 MG TABS 1 Q 6 hr. PRN IBUPROFEN 09936123706 No Longer Active Alina Castaneda MD PhD Active NIACIN ER 500 MG CR-TABS 4 qHS (for triglycerides) NIACIN 76610779868 No Longer Active Alina Castaneda MD PhD Active ALFUZOSIN HCL ER 10 MG [id number]-CXO 1 tablet daily ALFUZOSIN HCL 78024102169 Active Mima Vadimum SCREW MACHINE OPERATOR SINGLE SPINDLE Active SAPHRIS 5 MG SUBL by mouth twice a day ASENAPINE MALEATE 80332196711 No Longer Active Marvel Mackenzieglari ELECT[employer]ICAL PRODUCTS SALES ENGINEER Active ACETAMINOPHEN 500 MG TABS 2 Q 6 hr. PRN ACETAMINOPHEN 23006155735 No Longer Active Maliheh Ziglari ELECT[employer]ICAL PRODUCTS SALES ENGINEER Active ORPHENADRINE CITRATE ER 100 MG GK05R-PMS 1 every 12 hr. as needed ORPHENADRINE CITRATE 43862859780 No Longer Active Alina Castaneda MD PhD Active NIACIN CR 500 MG CR-TABS 2 qHS NIACIN 83547560402 No Longer Active Alina Castaneda MD PhD Active AMOXICILLIN 500 MG CAPS 2 po BID x 10 days AMOXICILLIN 06468091638 No Longer Active Alina Castaneda MD PhD Active HYDROCODONE-ACETAMINOPHEN 7.5-325 MG TABS 1 four times a day as needed for pain HYDROCODONE-ACETAMINOPHEN 51432481954 No Longer Active Alina Castaneda MD PhD Active DOXEPIN HCL 10 MG CAPS Take 1 tablet by mouth daily DOXEPIN HCL 62312111895 No Longer Active [facility] Active NAVANE 10 MG CAPS 1/2 tablet twice a day THIOTHIXENE No Longer Active [facility] Active CYCLOBENZAPRINE HCL 10 MG TABS 1/2 tablet by mouth every 8 hours as needed for muscle spasms CYCLOBENZAPRINE HCL 09119613469 No Longer Active Alina Castaneda MD PhD Active BACTROBAN 2 % CREAM apply to ear and nose twice daily MUPIROCIN CALCIUM 54749946272 No Longer Active Alina Castaneda MD PhD Active HYDROCODONE-ACETAMINOPHEN 5-325 MG TABS take one tablet by mouth every four hours as needed for pain HYDROCODONE-ACETAMINOPHEN 27749736043 No Longer Active Alina Castaneda MD PhD Active ZYPREXA 5 MG TABS take one tablet by mouth every evening OLANZAPINE 91997179478 No Longer Active Alina Castaneda MD PhD Active ALBUTEROL SULFATE 0.083 % NEBU SOLN one vial per nebulizer TID and PRN cough/ soa ALBUTEROL SULFATE 54681391009 No Longer Active Alina Castaneda MD PhD Active GUAIFENESIN 600 MG [id number]-TLH 1 tablet by mouth twice daily if needed for cough GUAIFENESIN 97915963710 No Longer Active Marvel MARROQUIN Active AZITHROMYCIN 500 MG SOLR 1 po q day AZITHROMYCIN 99149701996 No Longer Active Alina Castaneda MD PhD Active PROMETHAZINE-CODEINE 6.25-10 MG/5ML SYRP 1 tsp po q 6 hours prn cough PROMETHAZINE-CODEINE 09034284358 No Longer Active Alina Castaneda MD PhD Active CEFDINIR 300 MG CAPS by mouth twice a day CEFDINIR 51842240413 No Longer Active Alina Castaneda MD PhD Active METFORMIN HCL 500 MG [id number] Take 3 tablets by mouth everyday METFORMIN HCL 05733404016 No Longer Active Alina Castaneda MD PhD Active LEVEMIR 100 UNIT/ML SOLN 90 units SQ qHS INSULIN DETEMIR 27024948961 No Longer Active Marvel MARROQUIN Active TOPROL XL 100 MG GL79E-HNJ 1 @ HS METOPROLOL SUCCINATE 92246606310 No Longer Active Marvel MARROQUIN Active ALLOPURINOL 300 MG TABS Take one by mouth daily ALLOPURINOL 76993946506 Active Mima Vadimjerrell SCREW MACHINE OPERATOR SINGLE SPINDLE Active ZYPREXA 10 MG TABS Take one by mouth daily OLANZAPINE 45236858825 No Longer Active Alina Castaneda MD PhD Active NOVOLOG 100 UNIT/ML SOLN 40 units with every meal INSULIN ASPART 28875736278 No Longer Active Alina Castaneda MD PhD Active VERAPAMIL HCL CR 120 MG TAB CR 1 qPM VERAPAMIL HCL 43060663808 No Longer Active Salina ROJAS Active ZYPREXA 15 MG TABS Take 1 tablet by mouth daily OLANZAPINE 53537549928 No Longer Active Marvel MARROQUIN Active ALBUTEROL SULFATE (2.5 MG/3ML) 0.083% NEBU 1 neb tid and prn cough ALBUTEROL SULFATE 10705722059 No Longer Active Alina Castaneda MD PhD Active LANTUS 100 UNIT/ML SOLN 60 units sq q hs INSULIN GLARGINE 70555426402 No Longer Active CRYSTAL Suarez Active ALBUTEROL SULFATE (2.5 MG/3ML) 0.083% NEBU 1 neb tid and prn cough ALBUTEROL SULFATE (2.5 MG/3ML) 0.083% NEBU 561155 ALBUTEROL SULFATE Inactive ZYPREXA 15 MG TABS Take 1 tablet by mouth daily ZYPREXA 15 MG TABS 106204 OLANZAPINE Inactive VERAPAMIL HCL CR 120 MG TAB CR 1 qPM VERAPAMIL HCL CR 120 MG TAB CR VERAPAMIL HCL Inactive ZYPREXA 10 MG TABS Take one by mouth daily ZYPREXA 10 MG TABS 667662 OLANZAPINE Inactive TOPROL XL 100 MG [id number]-[id number] 1 @ HS TOPROL XL 100 MG HY34Z-WHL METOPROLOL SUCCINATE Inactive LEVEMIR 100 UNIT/ML SOLN 90 units SQ qHS LEVEMIR 100 UNIT/ML SOLN INSULIN DETEMIR Inactive PROMETHAZINE-CODEINE 6.25-10 MG/5ML SYRP 1 tsp po q 6 hours prn cough PROMETHAZINE-CODEINE 6.25-10 MG/5ML SYRP 273929 PROMETHAZINE- CODEINE Inactive GUAIFENESIN 600 MG GO15E-KJZ 1 tablet by mouth twice daily if needed for cough GUAIFENESIN 600 MG YV92V-EKG GUAIFENESIN Inactive ALBUTEROL SULFATE 0.083 % NEBU SOLN one vial per nebulizer TID and PRN cough/ soa ALBUTEROL SULFATE 0.083 % NEBU SOLN 389212 ALBUTEROL SULFATE Inactive ZYPREXA 5 MG TABS take one tablet by mouth every evening ZYPREXA 5 MG TABS 988799 OLANZAPINE Inactive HYDROCODONE-ACETAMINOPHEN 5-325 MG TABS take one tablet by mouth every four hours as needed for pain HYDROCODONE-ACETAMINOPHEN 5-325 MG TABS 043663 HYDROCODONE-ACETAMINOPHEN Inactive BACTROBAN 2 % CREAM apply to ear and nose twice daily BACTROBAN 2 % CREAM 559920 MUPIROCIN CALCIUM Inactive CYCLOBENZAPRINE HCL 10 MG TABS 1/2 tablet by mouth every 8 hours as needed for muscle spasms CYCLOBENZAPRINE HCL 10 MG TABS 284797 CYCLOBENZAPRINE HCL Inactive NAVANE 10 MG CAPS 1/2 tablet twice a day NAVANE 10 MG CAPS THIOTHIXENE Inactive DOXEPIN HCL 10 MG CAPS Take 1 tablet by mouth daily DOXEPIN HCL 10 MG CAPS 9274898 DOXEPIN HCL Inactive HYDROCODONE-ACETAMINOPHEN 7.5-325 MG TABS 1 four times a day as needed for pain HYDROCODONE-ACETAMINOPHEN 7.5-325 MG TABS 774287 HYDROCODONE-ACETAMINOPHEN Inactive NIACIN CR 500 MG CR-TABS 2 qHS NIACIN CR 500 MG CR- TABS NIACIN Inactive ORPHENADRINE CITRATE ER 100 MG [id number] 1 every 12 hr. as needed ORPHENADRINE CITRATE ER 100 MG [id number]-LFO ORPHENADRINE CITRATE Inactive ACETAMINOPHEN 500 MG TABS 2 Q 6 hr. PRN ACETAMINOPHEN 500 MG TABS 479165 ACETAMINOPHEN Inactive SAPHRIS 5 MG SUBL by mouth twice a day SAPHRIS 5 MG SUBL ASENAPINE MALEATE Inactive NIACIN ER 500 MG CR-TABS 4 qHS (for triglycerides) NIACIN ER 500 MG CR-TABS NIACIN Inactive IBUPROFEN 200 MG TABS 1 Q 6 hr. PRN IBUPROFEN 200 MG TABS 112031 IBUPROFEN Inactive FLUTICASONE PROPIONATE 50 MCG/ACT SUSP 2 sprays each nostril qDay x 30 days FLUTICASONE PROPIONATE 50 MCG/ACT SUSP 2462675 FLUTICASONE PROPIONATE Inactive EQL TRUETEST TEST STRP Test blood sugar TID EQL TRUETEST TEST STRP GLUCOSE BLOOD Inactive TERESE CONTOUR TEST STRP monitor blood sugars 3x/day TERESE CONTOUR TEST STRP GLUCOSE BLOOD Inactive DETROL LA 4 MG [id number]-QEQ Take 1 tablet by mouth daily DETROL LA 4 MG PP94I-RVE TOLTERODINE TARTRATE Inactive ZYPREXA 7.5 MG TABS 1 at HS ZYPREXA 7.5 MG TABS 528548 OLANZAPINE Inactive THIOTHIXENE 5 MG CAPS by mouth twice a day THIOTHIXENE 5 MG CAPS 691868 THIOTHIXENE Inactive UROXATRAL 10 MG [id number]-VXX Take 1 tablet by mouth daily UROXATRAL 10 MG WB64M-PUE ALFUZOSIN HCL Inactive ACYCLOVIR 400 MG ORAL TABS 1 pill three times daily x 5 days, for cold sore outbreak ACYCLOVIR 400 MG ORAL TABS 872774 ACYCLOVIR Inactive TRUETEST TEST STRP check sugars 4x/day TRUETEST TEST STRP GLUCOSE BLOOD Inactive HUMALOG 100 UNIT/ML SOLN Take 20 units with breakfast, 10u with lunch and suppetr. HUMALOG 100 UNIT/ML SOLN INSULIN LISPRO ( HUMAN) Inactive CYCLOBENZAPRINE HCL 10 MG TABS 1 tablet by mouth three times daily, scheduled CYCLOBENZAPRINE HCL 10 MG TABS 183558 CYCLOBENZAPRINE HCL Inactive ACCU-CHEK ROSA INVITR STRP use strips with device to check blood sugars 3 times daily ACCU-CHEK ROSA INVITR STRP GLUCOSE BLOOD Inactive ACCU-CHEK ROSA UZMA Use device to check blood sugars ACCU-CHEK ROSA UZMA BLOOD GLUCOSE MONITORING SUPPL Inactive FLUVOXAMINE MALEATE 100 MG ORAL TABS Take 1/2 tab at noon FLUVOXAMINE MALEATE 100 MG ORAL TABS 118554 FLUVOXAMINE MALEATE Inactive FLUVOXAMINE MALEATE 100 MG TABS Take one (1) tablet by mouth am, 1/2 at noon FLUVOXAMINE MALEATE 100 MG TABS 137217 FLUVOXAMINE MALEATE Inactive BACTROBAN 2 % CREAM Apply to affected area BID for up to 10 days BACTROBAN 2 % CREAM 068989 MUPIROCIN CALCIUM Inactive NOVOFINE 32G X 6 MM MISC use one four times per day NOVOFINE 32G X [facility] Inactive TRAZODONE HCL 100 MG ORAL TABS 1 tab by mouth for sleep TRAZODONE HCL 100 MG ORAL TABS 783058 TRAZODONE HCL Inactive LOVAZA 1 GM CAPS 4 daily (for triglycerides) LOVAZA 1 GM CAPS 646598 [id number]-8-TLVI ETHYL ESTERS Inactive METFORMIN HCL ER 500 MG MG59X-VHJ Take three tablets by mouth everyday METFORMIN HCL ER 500 MG [id number] METFORMIN HCL Inactive METOPROLOL SUCCINATE 100 MG AA40N-TAU 1 by mouth daily for blood pressure METOPROLOL SUCCINATE 100 MG [id number]-AWU METOPROLOL SUCCINATE Inactive AMITIZA 24 MCG ORAL CAPS Take one capsule BID for constipation. AMITIZA 24 MCG ORAL CAPS LUBIPROSTONE Inactive TOLTERODINE TARTRATE 2 MG TABS 1 pill twice daily, for bladder TOLTERODINE TARTRATE 2 MG TABS 905771 TOLTERODINE TARTRATE Inactive COLACE 100 MG CAPS 1 pill by mouth twice daily, for constipation COLACE 100 MG CAPS 5361825 DOCUSATE SODIUM Inactive LOMOTIL 2.5-0.025 MG ORAL TABS take 1-2 tabs PO after each stool, no more than 8 in 24 hours LOMOTIL 2.5-0.025 MG ORAL TABS 2484613 DIPHENOXYLATE-ATROPINE Inactive ZOFRAN 4 MG TABS 1 po q4hr PRN Nausea ZOFRAN 4 MG TABS 907961 ONDANSETRON HCL Inactive HYDROCODONE-ACETAMINOPHEN 5-325 MG TABS 2 tabs by mouth three times daily for pain HYDROCODONE-ACETAMINOPHEN 5-325 MG TABS 941093 HYDROCODONE-ACETAMINOPHEN Inactive ZOLPIDEM TARTRATE 10 MG TABS take at bedtime ZOLPIDEM TARTRATE 10 MG TABS 910390 ZOLPIDEM TARTRATE Inactive LISINOPRIL 20 MG TABS 1 BID LISINOPRIL 20 MG TABS 822649 LISINOPRIL Inactive TRAVATAN Z 0.004 % SOLN 1 gtt each eye daily TRAVATAN Z 0.004 % SOLN TRAVOPROST Inactive LATUDA 60 MG ORAL TABS Take one by mouth daily LATUDA 60 MG ORAL TABS LURASIDONE HCL Inactive CEFDINIR 300 MG CAPS by mouth twice a day CEFDINIR 300 MG CAPS 815819 CEFDINIR Inactive AZITHROMYCIN 500 MG SOLR 1 po q day AZITHROMYCIN 500 MG SOLR 46642719485 AZITHROMYCIN Inactive AMOXICILLIN 500 MG CAPS 2 po BID x 10 days AMOXICILLIN 500 MG CAPS 991933 AMOXICILLIN Inactive PENICILLIN V POTASSIUM 500 MG TABS 1 pill by mouth three times daily PENICILLIN V POTASSIUM 500 MG TABS 850987 PENICILLIN V POTASSIUM Inactive KEFLEX 500 MG CAP 1 po BID x 7 days KEFLEX 500 MG CAP 194532 CEPHALEXIN Inactive Immunizations Vaccine Administration Date Value [...] Fluvirin, Fluarix, Agriflu(>=18 yo)) Fluzone (>3 yrs.) [[id number]] Influenza, seasonal, injectable pneumococcal immunization administered Pneumovax [...] Panel - Chemistry sodium, serum 137 mmol/L 680-406 3040/10/12 potassium, serum 4.8 mmol/L 3.5-5.2 chloride, serum 102 mmol/L 98-107 carbon dioxide, venous blood 27.6 mmol/L 21.0-32.0 blood glucose 168 mg/dL 65-110 calcium, serum 9.0 mg/dL 8.5-10.1 urea nitrogen, blood 15 mg/dL 7-18 creatinine, serum 1.04 mg/dL 0.55-1.30 sodium, serum 138 mmol/L 018-842 8404/11/11 potassium, serum 4.7 mmol/L 3.5-5.2 chloride, serum [...] % 11.6-14.8 platelet count 240 10^3/MM^3 10*3/mm3 199-142 2763/11/11 leukocyte count, blood 9.6 10^3/MM^3 10*3/mm3 4.6-10.2 [...] Acid - Chemistry cholesterol, serum 187 mg/dL 123-694 6644/06/14 triglyceride, serum, fasting 246 mg/dL 30-200 HDL [...] negative Encounters Code Encounter Date Provider Facility CPT-[id number] Level 3 Est. Patient 17:40:16 CDT Mima Erazo [facility] CPT-07792 Level 3 Est. Patient 14:34:52 CDT Vanessa Hickey MD [facility] CPT-23475 Level 3 Est. Patient 16:27:51 CDT Mima Erazo [facility] CPT-92488 Level 3 Est. Patient 14:39:00 WEBBING TACKER Vanessa Hickey MD [facility] CPT-79292 Level 2 Est. Patient 18:43:34 CDT Mima Erazo [facility] CPT-84238 Level 3 Est. Patient 16:22:09 CDT Cherelle Avila [facility]-65511 Level 4 Est. Patient 17:55:14 CDT Mima Erazo [facility] CPT-97000 Level 2 Est. Patient 17:13:21 CDT Alina Castaneda MD [facility]114 Level 3 Est. Patient 14:46:15 CDT Vanessa Hickey MD -[id number] Level 3 Est. Patient 09:34:56 CDT Alina Castaneda MD [facility]21518 Level 3 Est. Patient 21:40:19 CDT Mima Erazo [facility]-37112 Level 3 Est. Patient 09:26:40 CDT Marvel Charles [facility]29 Level 3 Est. Patient 12:36:43 CDT Vanessa Hickey MD -[id number] Level 3 Est. Patient 12:57:49 CDT Vanessa Hickey MD [facility]77425 Level 3 Est. Patient 00:28:25 CDT Alina Castaneda MD [facility]-47665 Level 2 Est. Patient 12:52:14 CDT Alina Castaneda MD [facility]55509 Level 3 Est. Patient 11:51:18 WEBBING TACKER Alina Castaneda MD [facility]69585 Level 3 Est. Patient 10:09:22 WEBBING TACKER Alina Castaneda MD [facility]93026 Level 3 Est. Patient 14:36:26 WEBBING TACKER Marvel Charles [facility]-82097 Level 3 Est. Patient 13:34:47 WEBBING TACKER Alina Castaneda MD [facility]-75068 Level 3 Est. Patient 19:52:08 WEBBING TACKER Alina Castaneda MD [facility]-07056 Level 3 Est. Patient 10:01:51 WEBBING TACKER Brookslashondanivia Araceli [facility]-62326 Level 3 Est. Patient 21:54:06 CDT Vanessa Hickey MD -[id number] Level 3 Est. Patient 08:54:46 CDT Alina Castaneda MD [facility]37 Level 3 Est. Patient 09:32:11 CDT Marvel Charles [facility]-03814 Level 3 Est. Patient 12:02:49 CDT Alina Castaneda MD [facility]-70670 Level 3 Est. Patient 19:17:33 CDT Alina Castaneda MD [facility]-97687 Level 3 Est. Patient 13:19:10 CDT Marvel [facility]-95218 Level 3 Est. Patient 08:20:05 CDT Alina Castaneda MD [facility]-05672 Level 3 Est. Patient 15:17:18 CDT Alina Castaneda MD [facility]-48227 Level 3 Est. Patient 14:25:36 [employer] Brooksjohn [facility]-01374 Level 3 Est. Patient 10:09:15 [employer] Brooksjohn [facility]-62237 Level 3 Est. Patient 21:28:43 CDT Alina Castaneda MD [facility]-08921 Level 3 Est. Patient 15:20:11 CDT Maliheh Ziglari [facility]-48758 Level 4 Est. Patient 19:08:12 CDT Alina Castaneda MD [facility]-77411 Level 3 Est. Patient 15:06:39 CDT Brooksnivia [facility]-02577 Level 4 Est. Patient 17:48:15 CDT Alina Castaneda MD [facility]-09329 Level 3 Est. Patient 14:53:49 CDT Alina Castaneda MD [facility]-57952 Level 3 Est. Patient 09:35:16 CDT Alina Castaneda MD [facility]-63112 Level 3 Est. Patient 12:23:22 CDT Alina Castaneda MD [facility]-73382 Level 3 Est. Patient 16:19:15 CDT Alina Castaneda MD [facility]-04054 Level 3 Est. Patient 21:39:56 [employer] Alina Castaneda MD [facility]-23247 Level 4 Est. Patient 14:12:56 [employer]ER Alina Castaneda MD [facility]-16411 Level 2 Est. Patient 15:34:57 [employer] Alina Castaneda MD [facility]-30200 Level 3 Est. Patient 12:17:04 [employer] Alina Castaneda MD [facility]-72070 Level 3 Est. Patient 09:18:18 [employer]ING [employer] Marvel [facility]-87761 Level 2 Est. Patient 21:50:24 CDT Alina Castaneda MD [facility] [place]70 Level 3 Est. Patient 09:17:28 CDT Marvel [facility] CPT-25096 Level 4 Est. Patient 18:54:02 CDT Alina Castaneda MD [facility] CPT-30179 Level 3 Est. Patient 10:47:10 CDT Alina Castaneda MD [facility]-70204 Level 3 Est. Patient 09:22:20 CDT Brooksjohn [facility] CPT-84407 Level 3 Est. [facility] 16:39:43 [facility] CPT-65220 Level 3 Est. Patient 16:05:16 CDT Alina Castaneda MD [facility] CPT-01154 Level 3 Est. Patient 00:29:15 CDT Alina Castaneda MD [facility] CPT-00932 Level 3 Est. Patient 10:49:22 [employer] Marvel [facility] CPT-98130 Level 3 Est. Patient 21:30:19 [employer] Alina Castaneda MD [facility] CPT-03285 Level 4 Est. Patient 17:04:11 WE[employer] Brooksjohn [facility] CPT-71902 Level 3 Est. Patient 15:34:11 [employer] Marvel [facility] CPT-86755 Level 2 Est. Patient 12:51:58 [employer] Alina Castaneda MD PhD [facility] CPT-46080 Level 3 Est. Patient 13:20:01 [employer] Alina Castaneda MD [facility]-65860 Level 3 Est. Patient 09:23:35 CDT Alina Castaneda MD PhD [facility] Procedures Code Procedure Name Date Entry Date Standard Description CPT-TCMM Transitional Care Mgmt-Moderate 10:25:31 CDT CPT-88506 Bladder Scan 14:34:53 CDT CPT-28118 Bladder Scan 14:39:01 [employer] CPT-TCMM Transitional Care Mgmt-Moderate 10:30:19 [employer] CPT-15146 Bladder Scan 12:36:44 CDT CPT-59466 Bladder Scan 21:54:06 CDT CPT-G0008 Administration of Influenza Virus Vaccine 13:05:26 CDT CPT-36892 Fluzone Quadrivalent Intramuscular Suspension 0.5 ML 13: 05:26 CDT CPT-23079 Administration single or combination vaccine inc oral 11 :49:51 CDT CPT-62674 Pneumovax 11:49:51 CDT CPT-31573 Ribs unilateral 2V 12:37:22 [employer] CPT-90434 Chest 2V Frontal and Lat 17:15:26 CDT CPT-58225 Abx/Therapy Injection 18:54:02 CDT CPT-J0696 Rocephin 1000 mg (Ceftriaxone) 16:00:32 CDT CPT-97141 Chest 2V Frontal and Lat 15:26:45 CDT CPT-87256 Chest 2V Frontal and Lat 10:23:27 CDT CPT-32052 Venipuncture Draw Fee 10:11:00 CDT CPT-13866 Administration single or combination vaccine inc oral 11 :56:38 CDT CPT-09054 Influenza split virus > age 3 11:56:38 CDT CPT-21154 Venipuncture Draw Fee 08:49:54 [employer] CPT-33402 EKG Trac and Interp 17:54:19 [employer]ING [employer]ER
--- OUTSIDE RECORDS SUMMARY | 2018-07-02 16:35 | XMS REPORT | Clinical Summary ---
Author Author Admin, TERELL Organization [facility] Address Unknown Phone Unavailable [...] essential hypertension WOUND, OPEN, NOSE 873.20 Resolved Alnia Castaneda MD PhD Open wound of nose, [...] bronchitis PNEUMONIA, ORGANISM UNSPECIFIED 486 Resolved Alina Castandea MD PhD Pneumonia, organism unspecified RIB PAIN, [...] Diabetes mellitus, type II, uncontrolled 250.02 Active Zainnivai Araceli MARROQUIN Diabetes mellitus without mention of [...] Castaneda MD PhD CHEST PAIN ICD-786.50 Inactive Alnia Castaneda MD PhD FH STROKE ICD-V17.1 Inactive [...] Name NDC Status Provider Patient Instruction LATUDA 120 MG ORAL TABS 1 pill by mouth nightly LURASIDONE HCL 30500027175 Active Alina Castaneda MD PhD Active COLACE 100 MG CAPS 1 pill by mouth twice daily, for constipation DOCUSATE SODIUM 79494257902 Active Alina Castaneda MD PhD Active TRUETEST TEST STRP check blood sugars 3x/day GLUCOSE BLOOD 54194432653 Active Marvel MARROQUIN Active ACCU-CHEK ROSA UZMA Use device to check blood sugars BLOOD GLUCOSE MONITORING SUPPL 69501204542 No Longer Active Marvel MARROQUIN Active ACCU-CHEK ROSA INVITR STRP use strips with device to check blood sugars 3 times daily GLUCOSE BLOOD 88600708043 No Longer Active Marvel MARROQUIN Active VERAPAMIL HCL ER 180 MG ORAL CR-TABS 1 pill by mouth twice daily, for migraine prevention VERAPAMIL HCL 68656475736 Active Alina Castaneda MD PhD Active CYCLOBENZAPRINE HCL 10 MG TABS 1 tablet by mouth three times daily, scheduled CYCLOBENZAPRINE HCL 70155782650 No Longer Active Alina Castaneda MD PhD Active HUMALOG 100 UNIT/ML SOLN Take 20 units with breakfast, 10u with lunch and suppetr. INSULIN LISPRO (HUMAN) 44622899358 No Longer Active Alina Castaneda MD PhD Active TRUETEST TEST STRP check sugars 4x/day GLUCOSE BLOOD 96508750509 No Longer Active Alina Castaneda MD PhD Active MORPHINE SULFATE 30 MG TABS 1 pill by mouth twice daily, for pain MORPHINE SULFATE 83070650770 Active Alina Castaneda MD PhD Active ACYCLOVIR 400 MG ORAL TABS 1 pill three times daily x 5 days, for cold sore outbreak ACYCLOVIR 82482376702 No Longer Active Alina Castaneda MD PhD Active PENICILLIN V POTASSIUM 500 MG TABS 1 pill by mouth three times daily PENICILLIN V POTASSIUM 55347045775 No Longer Active Alina Castaneda MD PhD Active UROXATRAL 10 MG [id number] Take 1 tablet by mouth daily ALFUZOSIN HCL 18095076891 No Longer Active Alina Castaneda MD PhD Active THIOTHIXENE 5 MG CAPS by mouth twice a day THIOTHIXENE 42513916701 No Longer Active Alina Castaneda MD PhD Active ZYPREXA 7.5 MG TABS 1 at HS OLANZAPINE 76137576234 No Longer Active Alina Castaneda MD PhD Active LEVEMIR 100 UNIT/ML SOLN Take 70 u at 7-8pm INSULIN DETEMIR 46655680808 Active Maliheh Ziglari [employer]CTIONAL TESTER TYPEWRITERS Active BD INSULIN SYRINGE 28G X 1/2" 1 ML MISC 1 four times per day INSULIN SYRINGE-NEEDLE U-100 02897528572 Active Maliheh Ziglari [employer] TYPEWRITERS Active TOLTERODINE TARTRATE 2 MG TABS 1 pill twice daily, for bladder TOLTERODINE TARTRATE 88168821593 Active Alina Castaneda MD PhD Active DETROL LA 4 MG [id number]-JHT Take 1 tablet by mouth daily TOLTERODINE TARTRATE 49737000897 No Longer Active Alina Castaneda MD PhD Active HYDROCODONE-ACETAMINOPHEN 5-325 MG TABS 2 tabs by mouth three times daily as needed for pain HYDROCODONE-ACETAMINOPHEN 29621150243 Active Alina Castaneda MD PhD Active TERESE CONTOUR TEST STRP monitor blood sugars 3x/day GLUCOSE BLOOD 19427187252 No Longer Active Alina Castaneda MD PhD Active EQL TRUETEST TEST STRP Test blood sugar TID GLUCOSE BLOOD 95982900793 No Longer Active Alina Castaneda MD PhD Active FLUTICASONE PROPIONATE 50 MCG/ACT SUSP 2 sprays each nostril qDay x 30 days FLUTICASONE PROPIONATE 95132239342 No Longer Active Alina Castaneda MD PhD Active IBUPROFEN 200 MG TABS 1 Q 6 hr. PRN IBUPROFEN 33385397560 No Longer Active Alina Castaneda MD PhD Active NIACIN ER 500 MG CR-TABS 4 qHS (for triglycerides) NIACIN 59778619225 No Longer Active Alina Castaneda MD PhD Active ALFUZOSIN HCL ER 10 MG [id number] 1 tablet daily ALFUZOSIN HCL 37172976958 Active Vanessa Hickey MD Active CLONAZEPAM 1 MG TABS 1 pill by mouth three times daily CLONAZEPAM 56294561517 Active Alina Castaneda MD PhD Active LOVAZA 1 GM CAPS 4 daily (for triglycerides) [id number] ETHYL ESTERS 19297664419 Active Mao Rodriguez MD Active SAPHRIS 5 MG SUBL by mouth twice a day ASENAPINE MALEATE 76910979970 No Longer Active Marvel MARROQUIN Active ACETAMINOPHEN 500 MG TABS 2 Q 6 hr. PRN ACETAMINOPHEN 25640798070 No Longer Active Maliheh Ziglari [employer] TYPE[employer]IT[employer] Active ORPHENADRINE CITRATE ER 100 MG [id number] 1 every 12 hr. as needed ORPHENADRINE CITRATE 47022286406 No Longer Active Alina Castaneda MD PhD Active NIACIN CR 500 MG CR-TABS 2 qHS NIACIN 39535009427 No Longer Active Alina Castaneda MD PhD Active AMOXICILLIN 500 MG CAPS 2 po BID x 10 days AMOXICILLIN 71508948025 No Longer Active Alina Castaneda MD PhD Active HYDROCODONE-ACETAMINOPHEN 7.5-325 MG TABS 1 four times a day as needed for pain HYDROCODONE-ACETAMINOPHEN 89329664303 No Longer Active Alina Castaneda MD PhD Active METFORMIN HCL ER 500 MG [id number]-EZL Take three tablets by mouth everyday METFORMIN HCL 34131566115 Active Maljohn Mackenzieglari [employer] TYPEWRIT[employer] Active DOXEPIN HCL 10 MG CAPS Take 1 tablet by mouth daily DOXEPIN HCL 65072767397 No Longer Active Salina Han A Active NAVANE 10 MG CAPS 1/2 tablet twice a day THIOTHIXENE No Longer Active Salina Han [facility] Active CYCLOBENZAPRINE HCL 10 MG TABS 1/2 tablet by mouth every 8 hours as needed for muscle spasms CYCLOBENZAPRINE HCL 15872667625 No Longer Active Alina Castaneda MD PhD Active BACTROBAN 2 % CREAM apply to ear and nose twice daily MUPIROCIN CALCIUM 63229224321 No Longer Active Alina Castaneda MD PhD Active HYDROCODONE-ACETAMINOPHEN 5-325 MG TABS take one tablet by mouth every four hours as needed for pain HYDROCODONE-ACETAMINOPHEN 12452526907 No Longer Active Alina Castaneda MD PhD Active ZOLPIDEM TARTRATE 10 MG TABS take at bedtime ZOLPIDEM TARTRATE 96167350121 Active Alina Castaneda MD PhD Active ZYPREXA 5 MG TABS take one tablet by mouth every evening OLANZAPINE 02447068960 No Longer Active Alina Castaneda MD PhD Active ALBUTEROL SULFATE 0.083 % NEBU SOLN one vial per nebulizer TID and PRN cough/ soa ALBUTEROL SULFATE 17749665735 No Longer Active Alina Castaneda MD PhD Active GUAIFENESIN 600 MG [id number] 1 tablet by mouth twice daily if needed for cough GUAIFENESIN 52364848594 No Longer Active Marvel MARROQUIN Active AZITHROMYCIN 500 MG SOLR 1 po q day AZITHROMYCIN 14108597928 No Longer Active Alina Castaneda MD PhD Active METOPROLOL SUCCINATE 100 MG TN60M-JXE 1 by mouth daily for blood pressure METOPROLOL SUCCINATE 74087513859 Active Alina Castaneda MD PhD Active PROMETHAZINE-CODEINE 6.25-10 MG/5ML SYRP 1 tsp po q 6 hours prn cough PROMETHAZINE-CODEINE 19903045646 No Longer Active Alina Castaneda MD PhD Active CEFDINIR 300 MG CAPS by mouth twice a day CEFDINIR 61222598031 No Longer Active Alina Castaneda MD PhD Active METFORMIN HCL 500 MG MI39A-DWM Take 3 tablets by mouth everyday METFORMIN HCL 55741512072 No Longer Active Alina Castaneda MD PhD Active LEVEMIR 100 UNIT/ML SOLN 90 units SQ qHS INSULIN DETEMIR 46386567423 No Longer Active Marvel MARROQUIN Active TOPROL XL 100 MG ND17I-JQY 1 @ HS METOPROLOL SUCCINATE 16362368268 No Longer Active Marvel MARROQUIN Active ALLOPURINOL 300 MG TABS Take one by mouth daily ALLOPURINOL 46267831734 Active Alina Castaneda MD PhD Active ZYPREXA 10 MG TABS Take one by mouth daily OLANZAPINE 61411926529 No Longer Active Alina Castaneda MD PhD Active NOVOLOG 100 UNIT/ML SOLN 40 units with every meal INSULIN ASPART 12728702560 No Longer Active Alina Castaneda MD PhD Active VERAPAMIL HCL CR 120 MG TAB CR 1 qPM VERAPAMIL HCL 28524448548 No Longer Active Salina Han [facility] Active ZYPREXA 15 MG TABS Take 1 tablet by mouth daily OLANZAPINE 65294683369 No Longer Active Marvel Mackenzieanca [employer]WRIT[employer] Active LISINOPRIL 20 MG TABS 1 BID LISINOPRIL 88089846026 Active Alina Castaneda MD PhD Active ALBUTEROL SULFATE (2.5 MG/3ML) 0.083% NEBU 1 neb tid and prn cough ALBUTEROL SULFATE 56607539526 No Longer Active Alina Castaneda MD PhD Active FLUVOXAMINE MALEATE 100 MG TABS Take one (1) tablet by mouth am, 1/2 at noon, 1 pm FLUVOXAMINE MALEATE 74829968234 Active Alina Castaneda MD PhD Active TRAVATAN Z 0.004 % SOLN 1 gtt each eye daily TRAVOPROST 36744381909 Active CRYSTAL Suarez Active LANTUS 100 UNIT/ML SOLN 60 units sq q hs INSULIN GLARGINE 39556135036 No Longer Active CRYSTAL Suarez Active ALBUTEROL SULFATE (2.5 MG/3ML) 0.083% NEBU 1 neb tid and prn cough ALBUTEROL SULFATE (2.5 MG/3ML) 0.083% NEBU 357890 ALBUTEROL SULFATE Inactive ZYPREXA 15 MG TABS Take 1 tablet by mouth daily ZYPREXA 15 MG TABS 043072 OLANZAPINE Inactive VERAPAMIL HCL CR 120 MG TAB CR 1 qPM VERAPAMIL HCL CR 120 MG TAB CR VERAPAMIL HCL Inactive ZYPREXA 10 MG TABS Take one by mouth daily ZYPREXA 10 MG TABS 908123 OLANZAPINE Inactive TOPROL XL 100 MG [id number] 1 @ HS TOPROL XL 100 MG HE61A-UPG METOPROLOL SUCCINATE Inactive LEVEMIR 100 UNIT/ML SOLN 90 units SQ qHS LEVEMIR 100 UNIT/ML SOLN INSULIN DETEMIR Inactive PROMETHAZINE-CODEINE 6.25-10 MG/5ML SYRP 1 tsp po q 6 hours prn cough PROMETHAZINE-CODEINE 6.25-10 MG/5ML SYRP 593036 PROMETHAZINE- CODEINE Inactive GUAIFENESIN 600 MG FV95K-FZS 1 tablet by mouth twice daily if needed for cough GUAIFENESIN 600 MG [id number]-ANI GUAIFENESIN Inactive ALBUTEROL SULFATE 0.083 % NEBU SOLN one vial per nebulizer TID and PRN cough/ soa ALBUTEROL SULFATE 0.083 % NEBU SOLN 310673 ALBUTEROL SULFATE Inactive ZYPREXA 5 MG TABS take one tablet by mouth every evening ZYPREXA 5 MG TABS 573631 OLANZAPINE Inactive HYDROCODONE-ACETAMINOPHEN 5-325 MG TABS take one tablet by mouth every four hours as needed for pain HYDROCODONE-ACETAMINOPHEN 5-325 MG TABS 672716 HYDROCODONE-ACETAMINOPHEN Inactive BACTROBAN 2 % CREAM apply to ear and nose twice daily BACTROBAN 2 % CREAM 936914 MUPIROCIN CALCIUM Inactive CYCLOBENZAPRINE HCL 10 MG TABS 1/2 tablet by mouth every 8 hours as needed for muscle spasms CYCLOBENZAPRINE HCL 10 MG TABS 734105 CYCLOBENZAPRINE HCL Inactive NAVANE 10 MG CAPS 1/2 tablet twice a day NAVANE 10 MG CAPS THIOTHIXENE Inactive DOXEPIN HCL 10 MG CAPS Take 1 tablet by mouth daily DOXEPIN HCL 10 MG CAPS 4710016 DOXEPIN HCL Inactive HYDROCODONE-ACETAMINOPHEN 7.5-325 MG TABS 1 four times a day as needed for pain HYDROCODONE-ACETAMINOPHEN 7.5-325 MG TABS 938319 HYDROCODONE-ACETAMINOPHEN Inactive NIACIN CR 500 MG CR-TABS 2 qHS NIACIN CR 500 MG CR- TABS NIACIN Inactive ORPHENADRINE CITRATE ER 100 MG [id number] 1 every 12 hr. as needed ORPHENADRINE CITRATE ER 100 MG NB26M-YHQ ORPHENADRINE CITRATE Inactive ACETAMINOPHEN 500 MG TABS 2 Q 6 hr. PRN ACETAMINOPHEN 500 MG TABS 539750 ACETAMINOPHEN Inactive SAPHRIS 5 MG SUBL by mouth twice a day SAPHRIS 5 MG SUBL ASENAPINE MALEATE Inactive NIACIN ER 500 MG CR-TABS 4 qHS (for triglycerides) NIACIN ER 500 MG CR-TABS NIACIN Inactive IBUPROFEN 200 MG TABS 1 Q 6 hr. PRN IBUPROFEN 200 MG TABS 677178 IBUPROFEN Inactive FLUTICASONE PROPIONATE 50 MCG/ACT SUSP 2 sprays each nostril qDay x 30 days FLUTICASONE PROPIONATE 50 MCG/ACT SUSP 069767 FLUTICASONE PROPIONATE Inactive EQL TRUETEST TEST STRP Test blood sugar TID EQL TRUETEST TEST STRP GLUCOSE BLOOD Inactive TERESE CONTOUR TEST STRP monitor blood sugars 3x/day TERESE CONTOUR TEST STRP GLUCOSE BLOOD Inactive DETROL LA 4 MG [id number]-DAY Take 1 tablet by mouth daily DETROL LA 4 MG [id number]-CTE TOLTERODINE TARTRATE Inactive ZYPREXA 7.5 MG TABS 1 at HS ZYPREXA 7.5 MG TABS 355252 OLANZAPINE Inactive THIOTHIXENE 5 MG CAPS by mouth twice a day THIOTHIXENE 5 MG CAPS 258967 THIOTHIXENE Inactive UROXATRAL 10 MG BY32H-DHZ Take 1 tablet by mouth daily UROXATRAL 10 MG [id number]-BWY ALFUZOSIN HCL Inactive ACYCLOVIR 400 MG ORAL TABS 1 pill three times daily x 5 days, for cold sore outbreak ACYCLOVIR 400 MG ORAL TABS 261540 ACYCLOVIR Inactive TRUETEST TEST STRP check sugars 4x/day TRUETEST TEST STRP GLUCOSE BLOOD Inactive HUMALOG 100 UNIT/ML SOLN Take 20 units with breakfast, 10u with lunch and suppetr. HUMALOG 100 UNIT/ML SOLN INSULIN LISPRO ( HUMAN) Inactive CYCLOBENZAPRINE HCL 10 MG TABS 1 tablet by mouth three times daily, scheduled CYCLOBENZAPRINE HCL 10 MG TABS 204602 CYCLOBENZAPRINE HCL Inactive ACCU-CHEK ROSA INVITR STRP use strips with device to check blood sugars 3 times daily ACCU-CHEK ROSA INVITR STRP GLUCOSE BLOOD Inactive ACCU-CHEK ROSA UZMA Use device to check blood sugars ACCU-CHEK ROSA UZMA BLOOD GLUCOSE MONITORING SUPPL Inactive CEFDINIR 300 MG CAPS by mouth twice a day CEFDINIR 300 MG CAPS 667833 CEFDINIR Inactive AZITHROMYCIN 500 MG SOLR 1 po q day AZITHROMYCIN 500 MG SOLR 081029 AZITHROMYCIN Inactive AMOXICILLIN 500 MG CAPS 2 po BID x 10 days AMOXICILLIN 500 MG CAPS 434831 AMOXICILLIN Inactive PENICILLIN V POTASSIUM 500 MG TABS 1 pill by mouth three times daily PENICILLIN V POTASSIUM 500 MG TABS 371095 PENICILLIN V POTASSIUM Inactive Immunizations Vaccine Administration [...] Fluvirin, Fluarix, Agriflu(>=18 yo)) Fluzone (>3 yrs.) [[id number]] Influenza, seasonal, injectable pneumococcal immunization administered Pneumovax [...] pressure, diastolic - 8462-4 66 mm[Hg] BP agrcia blood pressure, systolic - 8480-6 113 mm[Hg] [...] blood pressure, diastolic, standing 73 mm[Hg] BP garica blood pressure, diastolic, supine, left arm 70 [...] HGBA1C - Chemistry sodium, serum 130 mmol/L 799-486 1924/06/09 potassium, serum 4.0 mmol/L 3.5-5.2 chloride, serum 92 mmol/L 98-107 carbon dioxide, venous blood 22.1 mmol/L 21.0-32.0 blood glucose 60 mg/dL 65-110 calcium, serum 9.5 mg/dL 8.5-10.1 urea nitrogen, blood 14 mg/dL 7-18 creatinine, serum 1.30 mg/dL 0.60-1.30 hemoglobin A1C, blood, as % of total hemoglobin 6.0 % 4.3-6.0 sodium, serum 131 mmol/L 729-459 0782/12/30 potassium, serum 5.0 mmol/L 3.5-5.2 chloride, serum 95 mmol/L 98-107 carbon dioxide, venous blood 26.7 mmol/L 21.0-32.0 blood glucose 112 mg/dL 65-110 calcium, serum 9.2 mg/dL 8.5-10.1 urea nitrogen, blood 12 mg/dL 7-18 creatinine, serum 1.10 mg/dL 0.60-1.30 hemoglobin A1C, blood, as % of total hemoglobin 5.8 % 4.3-6.0 Lab Report: Comp. Metabolic Panel - Chemistry sodium, serum 127 mmol/L 197-054 2028/10/27 potassium, serum 4.1 mmol/L 3.5-5.2 chloride, serum [...] mg/dL Encounters Code Encounter Date Provider Facility CPT-63887 Level 3 Est. Patient 12:36:43 CDT Vanessa Hickey MD [facility]-76606 Level 3 Est. Patient 12:57:49 CDT Vanessa Hickey MD [facility]-64094 Level 3 Est. Patient 00:28:25 CDT Alina Castaneda MD [facility]-44956 Level 2 Est. Patient 12:52:14 CDT Alina Castaneda MD [facility]-41592 Level 3 Est. Patient 11:51:18 EXCEPTIONAL STUDENT EDUCATION TEACHER Alina Castaneda MD [facility] CPT-75070 Level 3 Est. Patient 10:09:22 EXCEPTIONAL STUDENT EDUCATION TEACHER Alina Castaneda MD [facility]-72111 Level 3 Est. Patient 14:36:26 EXCEPTIONAL STUDENT EDUCATION TEACHER Marvel Charles [facility] CPT-49164 Level 3 Est. Patient 13:34:47 EXCEPTIONAL STUDENT EDUCATION TEACHER Alina Castaneda MD [facility]-40291 Level 3 Est. Patient 19:52:08 EXCEPTIONAL STUDENT EDUCATION TEACHER Alina Castaneda MD [facility]-85872 Level 3 Est. Patient 10:01:51 EXCEPTIONAL STUDENT EDUCATION TEACHER Marvel Charles [facility] CPT-57602 Level 3 Est. Patient 21:54:06 CDT Vanessa Hickey MD [facility]-05522 Level 3 Est. Patient 08:54:46 CDT Alina Castaneda MD [facility]-54870 Level 3 Est. Patient 09:32:11 CDT Marvel Charles [facility]-68482 Level 3 Est. Patient 12:02:49 CDT Alina Castaneda MD [facility]-29863 Level 3 Est. Patient 19:17:33 CDT Alina Castaneda MD [facility]47887 Level 3 Est. Patient 13:19:10 CDT [facility] [address] [facility]-06789 Level 3 Est. Patient 08:20:05 CDT Alina Castaneda MD [facility]-88412 Level 3 Est. Patient 15:17:18 CDT Alina Castaneda MD [facility]-01105 Level 3 Est. Patient 14:25:36 EXCEPTIONAL STUDENT EDUCATION TEACHER [facility]58761 Level 3 Est. Patient 10:09:15 EXCEPTIONAL STUDENT EDUCATION TEACHER [facility]77556 Level 3 Est. Patient 21:28:43 CDT Alina Castaneda MD [facility]-86423 Level 3 Est. Patient 15:20:11 CDT [facility]74913 Level 4 Est. Patient 19:08:12 CDT Alina Castaneda MD [facility]-42421 Level 3 Est. Patient 15:06:39 CDT [facility] Level 4 Est. Patient 17:48:15 CDT Alina Castaneda MD [facility]-40926 Level 3 Est. Patient 14:53:49 CDT Alina Castaneda MD [facility]-99279 Level 3 Est. Patient 09:35:16 CDT Alina Castaneda MD [facility]-34019 Level 3 Est. Patient 12:23:22 CDT Alina Castaneda MD [facility]-68847 Level 3 Est. Patient 16:19:15 CDT Alina Castaneda MD [facility]-39167 Level 3 Est. Patient 21:39:56 EXCEPTIONAL STUDENT EDUCATION TEACHER Alina Castaneda MD [facility]-08669 Level 4 Est. Patient 14:12:56 EXCEPTIONAL STUDENT EDUCATION TEACHER Alina Castaneda MD [facility]-24929 Level 2 Est. Patient 15:34:57 EXCEPTIONAL STUDENT EDUCATION TEACHER Alina Castaneda MD [facility]-96725 Level 3 Est. Patient 12:17:04 EXCEPTIONAL STUDENT EDUCATION TEACHER Alina Castaneda MD [facility]-43887 Level 3 Est. Patient 09:18:18 EXCEPTIONAL STUDENT EDUCATION TEACHER Marvel Charles [facility]-63534 Level 2 Est. Patient 21:50:24 CDT Alina Castaneda MD [facility]-15055 Level 3 Est. Patient 09:17:28 CDT Marvel Charles [facility]-19585 Level 4 Est. Patient 18:54:02 CDT Alina Castaneda MD [facility]-13931 Level 3 Est. Patient 10:47:10 CDT Alina Castaneda MD [facility]-59855 Level 3 Est. Patient 09:22:20 CDT Marvel Charles [facility]-13580 Level 3 Est. Patient 16:39:43 CDT Marvel Charles [facility]-52093 Level 3 Est. Patient 16:05:16 CDT Alina Castaneda MD [facility] CPT-14464 Level 3 Est. Patient 00:29:15 CDT Alina Castaneda MD [facility] CPT-26889 Level 3 Est. Patient 10:49:22 EXCEPTIONAL STUDENT EDUCATION TEACHER Marvel Charles [facility] CPT-18751 Level 3 Est. Patient 21:30:19 EXCEPTIONAL STUDENT EDUCATION TEACHER Alina Castaneda MD [facility] CPT-46905 Level 4 Est. Patient 17:04:11 EXCEPTIONAL STUDENT EDUCATION TEACHER [facility]-07357 Level 3 Est. Patient 15:34:11 EXCEPTIONAL STUDENT EDUCATION TEACHER [facility] CPT-20028 Level 2 Est. Patient 12:51:58 EXCEPTIONAL STUDENT EDUCATION TEACHER Alina Castaneda MD [facility] CPT-78582 Level 3 Est. Patient 13:20:01 EXCEPTIONAL STUDENT EDUCATION TEACHER Alina Castaneda MD [facility] CPT-38112 Level 3 Est. Patient 09:23:35 CDT Alina Castaneda MD [facility] Procedures Code Procedure Name Date Entry Date Standard Description CPT-37905 Bladder Scan 12:36:44 CDT CPT-44184 Bladder Scan 21:54:06 CDT CPT-G0008 Administration of Influenza Virus Vaccine 13:05:26 CDT CPT-70115 Fluzone Quadrivalent Intramuscular Suspension 0.5 ML 13: 05:26 CDT CPT-81159 Administration single or combination vaccine inc oral 11 :49:51 CDT CPT-50876 Pneumovax 11:49:51 CDT CPT-42124 Ribs unilateral 2V 12:37:22 EXCEPTIONAL STUDENT EDUCATION TEACHER CPT-10125 Chest 2V Frontal and Lat 17:15:26 CDT CPT-79292 Abx/Therapy Injection 18:54:02 CDT CPT-J0696 Rocephin 1000 mg (Ceftriaxone) 16:00:32 CDT CPT-82904 Chest 2V Frontal and Lat 15:26:45 CDT CPT-26690 Chest 2V Frontal and Lat 10:23:27 CDT CPT-18543 Venipuncture Draw Fee 10:11:00 CDT CPT-40473 Administration single or combination vaccine inc oral 11 :56:38 CDT CPT-05359 Influenza split virus > age 3 11:56:38 CDT CPT-54187 Venipuncture Draw Fee 08:49:54 EXCEPTIONAL STUDENT EDUCATION TEACHER CPT-21970 EKG Trac and Interp 17:54:19 EXCEPTIONAL STUDENT EDUCATION TEACHER
--- OUTSIDE RECORDS SUMMARY | 2018-07-02 16:37 | XMS REPORT | Clinical Summary ---
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 Erazo FORENSICS ANALYST Benign paroxysmal positional vertigo Vertigo, benign paroxysmal [...] Alina Castaneda MD PhD URI ICD-465.9 Inactive lAina Castaneda MD PhD CHEST PAIN ICD-786.50 Inactive [...] 0.4-0.3 % OPHTH SOLN POLYETHYL GLYCOL-PROPYL GLYCOL 63165794114 Active Mima Fierroum FORENSICS ANALYST Active FLUVOXAMINE MALEATE 100 MG ORAL TABS Take 1/2 tab at noon FLUVOXAMINE MALEATE 83051421369 Active Mima Erazo FORENSICS ANALYST Active CLONAZEPAM 1 MG TABS 1/2 pill by mouth three times daily CLONAZEPAM 50740405439 Active Alina Castaneda MD PhD Active MIRALAX POWD 17g by mouth daily, for constipation POLYETHYLENE GLYCOL 3350 58902899334 Active Alina Castaneda MD PhD Active HYDROCODONE-ACETAMINOPHEN 5-325 MG TABS 2 tabs by mouth three times daily for pain HYDROCODONE-ACETAMINOPHEN 68370299372 Active Alina Castaneda MD PhD Active HUMALOG KWIKPEN 100 UNIT/ML SC SOPN 20 units with breakfast, 10 units with lunch, 10 units with dinner, for diabetes INSULIN LISPRO (HUMAN ) 25664361232 Active Alina Castaneda MD PhD Active LEVEMIR FLEXTOUCH 100 UNIT/ML SC SOPN 70 units SQ each evening, for diabetes INSULIN DETEMIR 20889365661 Active Alina Castaneda MD PhD Active LATUDA 120 MG ORAL TABS 1 pill by mouth nightly LURASIDONE HCL 11480417216 Active Alina Castaneda MD PhD Active COLACE 100 MG CAPS 1 pill by mouth twice daily, for constipation DOCUSATE SODIUM 87168939221 Active Alina Castaneda MD PhD Active TRUETEST TEST STRP check blood sugars 3x/day GLUCOSE BLOOD 99767303670 Active Marvel Charles CABLE TELEVISION TECHNICIAN Active ACCU-CHEK ROSA UZMA Use device to check blood sugars BLOOD GLUCOSE MONITORING SUPPL 78924244812 No Longer Active Maleh Ziglari CABLE TELEVISION TECHNICIAN Active ACCU-CHEK ROSA INVITR STRP use strips with device to check blood sugars 3 times daily GLUCOSE BLOOD 20947642469 No Longer Active Malnivia Mackenzieglari CABLE TELEVISION TECHNICIAN Active VERAPAMIL HCL ER 180 MG ORAL CR-TABS 1 pill by mouth twice daily, for migraine prevention VERAPAMIL HCL 19172295573 Active Alina Castaneda MD PhD Active CYCLOBENZAPRINE HCL 10 MG TABS 1 tablet by mouth three times daily, scheduled CYCLOBENZAPRINE HCL 80846045476 No Longer Active Alina Castaneda MD PhD Active HUMALOG 100 UNIT/ML SOLN Take 20 units with breakfast, 10u with lunch and suppetr. INSULIN LISPRO (HUMAN) 06114015272 No Longer Active Alina Castaneda MD PhD Active TRUETEST TEST STRP check sugars 4x/day GLUCOSE BLOOD 69572037143 No Longer Active Alina Castaneda MD PhD Active MORPHINE SULFATE 30 MG TABS 1 pill by mouth twice daily, for pain MORPHINE SULFATE 68634816308 Active Alina Castaneda MD PhD Active ACYCLOVIR 400 MG ORAL TABS 1 pill three times daily x 5 days, for cold sore outbreak ACYCLOVIR 08819913754 No Longer Active Alina Castaneda MD PhD Active PENICILLIN V POTASSIUM 500 MG TABS 1 pill by mouth three times daily PENICILLIN V POTASSIUM 57638910512 No Longer Active Alina Castaneda MD PhD Active UROXATRAL 10 MG UT02H-CXO Take 1 tablet by mouth daily ALFUZOSIN HCL 26346437518 No Longer Active Alina Castaneda MD PhD Active THIOTHIXENE 5 MG CAPS by mouth twice a day THIOTHIXENE 73544791819 No Longer Active Alina Castaneda MD PhD Active ZYPREXA 7.5 MG TABS 1 at HS OLANZAPINE 20959827101 No Longer Active Alina Castaneda MD PhD Active BD INSULIN SYRINGE 28G X 1/2" 1 ML MISC 1 four times per day INSULIN SYRINGE-NEEDLE U-100 78618998402 Active Marvel MENDOZAP Active TOLTERODINE TARTRATE 2 MG TABS 1 pill twice daily, for bladder TOLTERODINE TARTRATE 48958896404 Active Alina Castaneda MD PhD Active DETROL LA 4 MG [id number] Take 1 tablet by mouth daily TOLTERODINE TARTRATE 08471550066 No Longer Active Alina Castaneda MD PhD Active TERESE CONTOUR TEST STRP monitor blood sugars 3x/day GLUCOSE BLOOD 04347051015 No Longer Active Alina Castaneda MD PhD Active EQL TRUETEST TEST STRP Test blood sugar TID GLUCOSE BLOOD 56125517529 No Longer Active Alina Castaneda MD PhD Active FLUTICASONE PROPIONATE 50 MCG/ACT SUSP 2 sprays each nostril qDay x 30 days FLUTICASONE PROPIONATE 01602347382 No Longer Active Alina Castaneda MD PhD Active IBUPROFEN 200 MG TABS 1 Q 6 hr. PRN IBUPROFEN 88987869942 No Longer Active Alina Castaneda MD PhD Active NIACIN ER 500 MG CR-TABS 4 qHS (for triglycerides) NIACIN 45289748130 No Longer Active Alina Castaneda MD PhD Active ALFUZOSIN HCL ER 10 MG [id number] 1 tablet daily ALFUZOSIN HCL 72608093038 Active Vanessa Hickey MD Active LOVAZA 1 GM CAPS 4 daily (for triglycerides) [id number] ETHYL ESTERS 91016096140 Active Alina Castaneda MD PhD Active SAPHRIS 5 MG SUBL by mouth twice a day ASENAPINE MALEATE 76928559356 No Longer Active Marvel MARROQUIN Active ACETAMINOPHEN 500 MG TABS 2 Q 6 hr. PRN ACETAMINOPHEN 00705656084 No Longer Active Marvel MARROQUIN Active ORPHENADRINE CITRATE ER 100 MG [id number] 1 every 12 hr. as needed ORPHENADRINE CITRATE 12753282371 No Longer Active Alina Castaneda MD PhD Active NIACIN CR 500 MG CR-TABS 2 qHS NIACIN 97902423973 No Longer Active Alina Castaneda MD PhD Active AMOXICILLIN 500 MG CAPS 2 po BID x 10 days AMOXICILLIN 73264548193 No Longer Active Alina Castaneda MD PhD Active HYDROCODONE-ACETAMINOPHEN 7.5-325 MG TABS 1 four times a day as needed for pain HYDROCODONE-ACETAMINOPHEN 28691622671 No Longer Active Alina Castaneda MD PhD Active METFORMIN HCL ER 500 MG [id number]-BQO Take three tablets by mouth everyday METFORMIN HCL 04443062434 Active Maliheh Ziglari CABLE TELEVISION TECHNICIAN Active DOXEPIN HCL 10 MG CAPS Take 1 tablet by mouth daily DOXEPIN HCL 82152603610 No Longer Active Salina Han A Active NAVANE 10 MG CAPS 1/2 tablet twice a day THIOTHIXENE No Longer Active Salina Han [facility] Active CYCLOBENZAPRINE HCL 10 MG TABS 1/2 tablet by mouth every 8 hours as needed for muscle spasms CYCLOBENZAPRINE HCL 28203931072 No Longer Active Alina Castaneda MD PhD Active BACTROBAN 2 % CREAM apply to ear and nose twice daily MUPIROCIN CALCIUM 18824001633 No Longer Active Alina Castaneda MD PhD Active HYDROCODONE-ACETAMINOPHEN 5-325 MG TABS take one tablet by mouth every four hours as needed for pain HYDROCODONE-ACETAMINOPHEN 83574920914 No Longer Active Alina Castaneda MD PhD Active ZOLPIDEM TARTRATE 10 MG TABS take at bedtime ZOLPIDEM TARTRATE 91344595404 Active Alina Castaneda MD PhD Active ZYPREXA 5 MG TABS take one tablet by mouth every evening OLANZAPINE 29509152181 No Longer Active Alina Castaneda MD PhD Active ALBUTEROL SULFATE 0.083 % NEBU SOLN one vial per nebulizer TID and PRN cough/ soa ALBUTEROL SULFATE 30019911873 No Longer Active Alina Castaneda MD PhD Active GUAIFENESIN 600 MG [id number]-QCB 1 tablet by mouth twice daily if needed for cough GUAIFENESIN 62881200015 No Longer Active Marvel MARROQUIN Active AZITHROMYCIN 500 MG SOLR 1 po q day AZITHROMYCIN 35990689253 No Longer Active Alina Castaneda MD PhD Active METOPROLOL SUCCINATE 100 MG [id number]-KUR 1 by mouth daily for blood pressure METOPROLOL SUCCINATE 59050467669 Active Alina Castaneda MD PhD Active PROMETHAZINE-CODEINE 6.25-10 MG/5ML SYRP 1 tsp po q 6 hours prn cough PROMETHAZINE-CODEINE 00897261500 No Longer Active Alina Castaneda MD PhD Active CEFDINIR 300 MG CAPS by mouth twice a day CEFDINIR 57458144486 No Longer Active Alina Castaneda MD PhD Active METFORMIN HCL 500 MG GX59E-CIB Take 3 tablets by mouth everyday METFORMIN HCL 09789430643 No Longer Active Alina Castaneda MD PhD Active LEVEMIR 100 UNIT/ML SOLN 90 units SQ qHS INSULIN DETEMIR 48256114436 No Longer Active Marvel MARROQUIN Active TOPROL XL 100 MG BS60E-YCF 1 @ HS METOPROLOL SUCCINATE 52022322992 No Longer Active Marvel MARROQUIN Active ALLOPURINOL 300 MG TABS Take one by mouth daily ALLOPURINOL 62032521077 Active Alina Castaneda MD PhD Active ZYPREXA 10 MG TABS Take one by mouth daily OLANZAPINE 84166811731 No Longer Active Alina Castaneda MD PhD Active NOVOLOG 100 UNIT/ML SOLN 40 units with every meal INSULIN ASPART 15300670351 No Longer Active Alina Castaneda MD PhD Active VERAPAMIL HCL CR 120 MG TAB CR 1 qPM VERAPAMIL HCL 83857694102 No Longer Active Salina Han [facility] Active ZYPREXA 15 MG TABS Take 1 tablet by mouth daily OLANZAPINE 44587375736 No Longer Active Marvel Thurstonestela MARROQUIN Active LISINOPRIL 20 MG TABS 1 BID LISINOPRIL 45609457740 Active Alina Castaneda MD PhD Active ALBUTEROL SULFATE (2.5 MG/3ML) 0.083% NEBU 1 neb tid and prn cough ALBUTEROL SULFATE 46261752848 No Longer Active Alina Castaneda MD PhD Active FLUVOXAMINE MALEATE 100 MG TABS Take one (1) tablet by mouth am, 05/25 at noon, 1 pm FLUVOXAMINE MALEATE 11593108666 Active Alina Castaneda MD PhD Active TRAVATAN Z 0.004 % SOLN 1 gtt each eye daily TRAVOPROST 31907035212 Active CRYSTAL Suarez Active LANTUS 100 UNIT/ML SOLN 60 units sq q hs INSULIN GLARGINE 27456359675 No Longer Active CRYSTAL Suarez Active ALBUTEROL SULFATE (2.5 MG/3ML) 0.083% NEBU 1 neb tid and prn cough ALBUTEROL SULFATE (2.5 MG/3ML) 0.083% NEBU 135915 ALBUTEROL SULFATE Inactive ZYPREXA 15 MG TABS Take 1 tablet by mouth daily ZYPREXA 15 MG TABS 169628 OLANZAPINE Inactive VERAPAMIL HCL CR 120 MG TAB CR 1 qPM VERAPAMIL HCL CR 120 MG TAB CR VERAPAMIL HCL Inactive ZYPREXA 10 MG TABS Take one by mouth daily ZYPREXA 10 MG TABS 426277 OLANZAPINE Inactive TOPROL XL 100 MG [id number] 1 @ HS TOPROL XL 100 MG AS34A-BSZ METOPROLOL SUCCINATE Inactive LEVEMIR 100 UNIT/ML SOLN 90 units SQ qHS LEVEMIR 100 UNIT/ML SOLN INSULIN DETEMIR Inactive PROMETHAZINE-CODEINE 6.25-10 MG/5ML SYRP 1 tsp po q 6 hours prn cough PROMETHAZINE-CODEINE 6.25-10 MG/5ML SYRP 347600 PROMETHAZINE- CODEINE Inactive GUAIFENESIN 600 MG [id number]-MDQ 1 tablet by mouth twice daily if needed for cough GUAIFENESIN 600 MG [id number]-IYU GUAIFENESIN Inactive ALBUTEROL SULFATE 0.083 % NEBU SOLN one vial per nebulizer TID and PRN cough/ soa ALBUTEROL SULFATE 0.083 % NEBU SOLN 659227 ALBUTEROL SULFATE Inactive ZYPREXA 5 MG TABS take one tablet by mouth every evening ZYPREXA 5 MG TABS 365877 OLANZAPINE Inactive HYDROCODONE-ACETAMINOPHEN 5-325 MG TABS take one tablet by mouth every four hours as needed for pain HYDROCODONE-ACETAMINOPHEN 5-325 MG TABS 291759 HYDROCODONE-ACETAMINOPHEN Inactive BACTROBAN 2 % CREAM apply to ear and nose twice daily BACTROBAN 2 % CREAM 940792 MUPIROCIN CALCIUM Inactive CYCLOBENZAPRINE HCL 10 MG TABS 1/2 tablet by mouth every 8 hours as needed for muscle spasms CYCLOBENZAPRINE HCL 10 MG TABS 496389 CYCLOBENZAPRINE HCL Inactive NAVANE 10 MG CAPS 1/2 tablet twice a day NAVANE 10 MG CAPS THIOTHIXENE Inactive DOXEPIN HCL 10 MG CAPS Take 1 tablet by mouth daily DOXEPIN HCL 10 MG CAPS 0888845 DOXEPIN HCL Inactive HYDROCODONE-ACETAMINOPHEN 7.5-325 MG TABS 1 four times a day as needed for pain HYDROCODONE-ACETAMINOPHEN 7.5-325 MG TABS 232292 HYDROCODONE-ACETAMINOPHEN Inactive NIACIN CR 500 MG CR-TABS 2 qHS NIACIN CR 500 MG CR- TABS NIACIN Inactive ORPHENADRINE CITRATE ER 100 MG [id number] 1 every 12 hr. as needed ORPHENADRINE CITRATE ER 100 MG [id number]-FBQ ORPHENADRINE CITRATE Inactive ACETAMINOPHEN 500 MG TABS 2 Q 6 hr. PRN ACETAMINOPHEN 500 MG TABS 543401 ACETAMINOPHEN Inactive SAPHRIS 5 MG SUBL by mouth twice a day SAPHRIS 5 MG SUBL ASENAPINE MALEATE Inactive NIACIN ER 500 MG CR-TABS 4 qHS (for triglycerides) NIACIN ER 500 MG CR-TABS NIACIN Inactive IBUPROFEN 200 MG TABS 1 Q 6 hr. PRN IBUPROFEN 200 MG TABS 954606 IBUPROFEN Inactive FLUTICASONE PROPIONATE 50 MCG/ACT SUSP 2 sprays each nostril qDay x 30 days FLUTICASONE PROPIONATE 50 MCG/ACT SUSP 994930 FLUTICASONE PROPIONATE Inactive EQL TRUETEST TEST STRP Test blood sugar TID EQL TRUETEST TEST STRP GLUCOSE BLOOD Inactive TERESE CONTOUR TEST STRP monitor blood sugars 3x/day TERESE CONTOUR TEST STRP GLUCOSE BLOOD Inactive DETROL LA 4 MG [id number] Take 1 tablet by mouth daily DETROL LA 4 MG [id number]-KTQ TOLTERODINE TARTRATE Inactive ZYPREXA 7.5 MG TABS 1 at HS ZYPREXA 7.5 MG TABS 644620 OLANZAPINE Inactive THIOTHIXENE 5 MG CAPS by mouth twice a day THIOTHIXENE 5 MG CAPS 268927 THIOTHIXENE Inactive UROXATRAL 10 MG [id number]-HZY Take 1 tablet by mouth daily UROXATRAL 10 MG PC80B-KEK ALFUZOSIN HCL Inactive ACYCLOVIR 400 MG ORAL TABS 1 pill three times daily x 5 days, for cold sore outbreak ACYCLOVIR 400 MG ORAL TABS 058960 ACYCLOVIR Inactive TRUETEST TEST STRP check sugars 4x/day TRUETEST TEST STRP GLUCOSE BLOOD Inactive HUMALOG 100 UNIT/ML SOLN Take 20 units with breakfast, 10u with lunch and suppetr. HUMALOG 100 UNIT/ML SOLN INSULIN LISPRO ( HUMAN) Inactive CYCLOBENZAPRINE HCL 10 MG TABS 1 tablet by mouth three times daily, scheduled CYCLOBENZAPRINE HCL 10 MG TABS 390679 CYCLOBENZAPRINE HCL Inactive ACCU-CHEK ROSA INVITR STRP use strips with device to check blood sugars 3 times daily ACCU-CHEK ROSA INVITR STRP GLUCOSE BLOOD Inactive ACCU-CHEK ROSA UZMA Use device to check blood sugars ACCU-CHEK ROSA UZMA BLOOD GLUCOSE MONITORING SUPPL Inactive CEFDINIR 300 MG CAPS by mouth twice a day CEFDINIR 300 MG CAPS 942845 CEFDINIR Inactive AZITHROMYCIN 500 MG SOLR 1 po q day AZITHROMYCIN 500 MG SOLR 811448 AZITHROMYCIN Inactive AMOXICILLIN 500 MG CAPS 2 po BID x 10 days AMOXICILLIN 500 MG CAPS 719922 AMOXICILLIN Inactive PENICILLIN V POTASSIUM 500 MG TABS 1 pill by mouth three times daily PENICILLIN V POTASSIUM 500 MG TABS 980396 PENICILLIN V POTASSIUM Inactive Immunizations Vaccine Administration [...] Fluvirin, Fluarix, Agriflu(>=18 yo)) Fluzone (>3 yrs.) [[id number]] Influenza, seasonal, injectable pneumococcal immunization administered Pneumovax [...] HGBA1C - Chemistry sodium, serum 131 mmol/L 905-489 5156/12/30 potassium, serum 5.0 mmol/L 3.5-5.2 chloride, serum 95 mmol/L 98-107 carbon dioxide, venous blood 26.7 mmol/L 21.0-32.0 blood glucose 112 mg/dL 65-110 calcium, serum 9.2 mg/dL 8.5-10.1 urea nitrogen, blood 12 mg/dL 7-18 creatinine, serum 1.10 mg/dL 0.60-1.30 hemoglobin A1C, blood, as % of total hemoglobin 5.8 % 4.3-6.0 Lab Report: Basic Metabolic Panel, HGBA1C, MICROALBUMIN - Chemistry sodium, serum 137 mmol/L 970-234 6793/05/19 potassium, serum 5.2 mmol/L 3.5-5.2 chloride, serum [...] microalbumin, urine 10 0-19 Lab Report: Chlamydia/GC APTIMA/29784, HIV-1/2 Agn/Dominga/30927, RPR (DX) W ... - Chemistry hepatitis B surface antigen NON-REACTIVE NON-REACTIVE Lab Report: Chlamydia/GC APTIMA/18236, HIV-1/2 Agn/Dominga/22726, RPR (DX) W ... - Lab chlamydia DNA probe NOT DETECTED NOT DETECTED Lab Report: Chlamydia/GC APTIMA/71755, HIV-1/2 Agn/Dominga/79101, RPR (DX) W ... - Microbiology Neisseria gonorrhoeae DNA probe NOT DETECTED NOT DETECTED Lab Report: Chlamydia/GC APTIMA/56078, HIV-1/2 Agn/Dominga/44120, RPR (DX) W ... - Serology rapid plasma reagin antibody titer NON-REACTIVE NON-REACTIVE Lab Report: Comp. Metabolic Panel - Chemistry sodium, serum 127 mmol/L 035-994 6087/10/27 potassium, serum 4.1 mmol/L 3.5-5.2 chloride, serum [...] CBC - Chemistry cholesterol, serum 131 mg/dL 903-417 1437/06/03 triglyceride, serum, fasting 383 mg/dL 30-200 HDL [...] 4.7 mg/dL 2.6-7.2 cholesterol, serum 142 mg/dL 351-583 7057/06/26 triglyceride, serum, fasting 272 mg/dL 30-200 HDL [...] mg/dL Encounters Code Encounter Date Provider Facility CPT-78084 Level 2 Est. Patient 17:13:21 CDT Alina Castaneda MD [facility] CPT-75578 Level 3 Est. Patient 14:46:15 CDT Vanessa Hickey MD [facility]-67037 Level 3 Est. Patient 09:34:56 CDT Alina Castaneda MD [facility]-19406 Level 3 Est. Patient 21:40:19 CDT Mima Erazo APRN [facility]-14435 Level 3 Est. [facility] 09:26:40 [facility]-79359 Level 3 Est. Patient 12:36:43 CDT Vanessa Hickey MD [facility]-30587 Level 3 Est. Patient 12:57:49 CDT Vanessa Hickey MD [facility]-02896 Level 3 Est. Patient 00:28:25 CDT Alina Castaneda MD [facility]-44586 Level 2 Est. Patient 12:52:14 CDT Alina Castaneda MD [facility]-38060 Level 3 Est. Patient 11:51:18 [employer] Alina Castaneda MD [facility]-34063 Level 3 Est. Patient 10:09:22 [employer] Alina Castaneda MD [facility]-28687 Level 3 Est. Patient 14:36:26 [employer] Marvel [facility] CPT-04827 Level 3 Est. Patient 13:34:47 [employer] Alina Castaneda MD [facility]-85930 Level 3 Est. Patient 19:52:08 [employer] Alina Castaneda MD [facility]-32815 Level 3 Est. Patient 10:01:51 [employer] [place] Araceli [facility]-55965 Level 3 Est. Patient 21:54:06 CDT Vanessa Hickey MD [facility]-77323 Level 3 Est. Patient 08:54:46 CDT Alina Castaneda MD [facility]-61159 Level 3 Est. Patient 09:32:11 CDT Marvel Charles [facility]-26760 Level 3 Est. Patient 12:02:49 CDT Alina Castaneda MD [facility]-82005 Level 3 Est. Patient 19:17:33 CDT Alina Castaneda MD [facility]-38423 Level 3 Est. Patient 13:19:10 CDT Marvel Charles [facility]-50913 Level 3 Est. Patient 08:20:05 CDT Alina Castaneda MD [facility]-23901 Level 3 Est. Patient 15:17:18 CDT Alina Castaneda MD [facility]-47597 Level 3 Est. Patient 14:25:36 [employer] [place] Araceli [facility]-33934 Level 3 Est. Patient 10:09:15 [employer] Marvel Charles [facility]-47965 Level 3 Est. Patient 21:28:43 CDT Alina Castaneda MD [facility]60629 Level 3 Est. Patient 15:20:11 CDT Marvel Charles [facility]-85876 Level 4 Est. Patient 19:08:12 CDT Alina Castaneda MD [facility]-31175 Level 3 Est. Patient 15:06:39 CDT Marvel Charles [facility]-26617 Level 4 Est. Patient 17:48:15 CDT Alina Castaneda MD [facility]-02413 Level 3 Est. Patient 14:53:49 CDT Alina Castaneda MD [facility]-64149 Level 3 Est. Patient 09:35:16 CDT Alina Castaneda MD [facility]-88342 Level 3 Est. Patient 12:23:22 CDT Alina Castaneda MD [facility]-61187 Level 3 Est. Patient 16:19:15 CDT Alina Castaneda MD [facility]-29074 Level 3 Est. Patient 21:39:56 [employer] Alina Castaneda MD [facility]-90577 Level 4 Est. Patient 14:12:56 [employer] Alina Castaneda MD [facility]-39483 Level 2 Est. Patient 15:34:57 [employer] Alina Castaneda MD [facility]-44425 Level 3 Est. Patient 12:17:04 [employer] Alina Castaneda MD [facility]-38317 Level 3 Est. Patient 09:18:18 [employer] Marvel Charles [facility]-73410 Level 2 Est. Patient 21:50:24 CDT Alina Castaneda MD [facility]-03124 Level 3 Est. Patient 09:17:28 CDT Marvel Charles [facility]-42674 Level 4 Est. Patient 18:54:02 CDT Alina Castaneda MD [facility] CPT-70509 Level 3 Est. Patient 10:47:10 CDT Alina Castaneda MD [facility] CPT-02926 Level 3 Est. Patient 09:22:20 CDT Marvel Thurstonestela [facility] CPT-66052 Level 3 Est. Patient 16:39:43 CDT [place] Araceli [facility] CPT-21768 Level 3 Est. Patient 16:05:16 CDT Alina Castaneda MD [facility] CPT-13914 Level 3 Est. Patient 00:29:15 CDT Alina Castaneda MD [facility] CPT-77350 Level 3 Est. Patient 10:49:22 [employer] [place] Araceli [facility] CPT-57305 Level 3 Est. Patient 21:30:19 [employer] Alina Castaneda MD [facility] CPT-12831 Level 4 Est. Patient 17:04:11 [employer] [place] Araceli [facility] CPT-38307 Level 3 Est. Patient 15:34:11 [employer] Marvel Araceli [facility] CPT-48097 Level 2 Est. Patient 12:51:58 [employer] Alina Castaneda MD PhD [facility] CPT-61936 Level 3 Est. Patient 13:20:01 [employer] Alina Castaneda MD [facility] CPT-71403 Level 3 Est. Patient 09:23:35 CDT Alina Castaneda MD [facility] Procedures Code Procedure Name Date Entry Date Standard Description CPT-43674 Bladder Scan 12:36:44 CDT CPT-63236 Bladder Scan 21:54:06 CDT CPT-G0008 Administration of Influenza Virus Vaccine 13:05:26 CDT CPT-07254 Fluzone Quadrivalent Intramuscular Suspension 0.5 ML 13: 05:26 CDT CPT-64513 Administration single or combination vaccine inc oral 11 :49:51 CDT CPT-02719 Pneumovax 11:49:51 CDT CPT-82227 Ribs unilateral 2V 12:37:22 [employer] CPT-80285 Chest 2V Frontal and Lat 17:15:26 CDT CPT-99437 Abx/Therapy Injection 18:54:02 CDT CPT-J0696 Rocephin 1000 mg (Ceftriaxone) 16:00:32 CDT CPT-40877 Chest 2V Frontal and Lat 15:26:45 CDT CPT-25745 Chest 2V Frontal and Lat 10:23:27 CDT CPT-51102 Venipuncture Draw Fee 10:11:00 CDT CPT-63040 Administration single or combination vaccine inc oral 11 :56:38 CDT CPT-54548 Influenza split virus > age 3 11:56:38 CDT CPT-43678 Venipuncture Draw Fee 08:49:54 [employer] CPT-87520 EKG Trac and Interp 17:54:19 [employer]
--- OUTSIDE RECORDS SUMMARY | 2018-07-02 16:38 | XMS REPORT | Clinical Summary ---
Author Author Admin, TERELL Organization [facility] Address Unknown Phone Unavailable Allergies, Adverse 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 Erazo ORAL AND MAXILLOFACIAL SURGERY RESIDENT Benign paroxysmal positional vertigo Vertigo, benign paroxysmal position 386.11 Inactive Mima Erazo [facility]AL AND MAXILLOFACIAL SURGERY RESIDENT Benign paroxysmal positional vertigo High-risk sexual behavior V69.2 Active Alina Castaneda MD PhD High-risk sexual behavior Erectile dysfunction 302.72 Active Alina Castaneda MD PhD Psychosexual dysfunction with inhibited sexual excitement Constipation 564.00 Active Alina Castaneda MD PhD Constipation, unspecified Skin lesion 709.9 Active Alina Castaneda MD PhD Unspecified disorder of skin and subcutaneous tissue Malaise and fatigue 780.79 Active Cherelle Speaks ORAL AND MAXILLOFACIAL SURGERY RESIDENT Other malaise and fatigue Diarrhea 787.91 Active Cherelle Speaks ORAL AND MAXILLOFACIAL SURGERY RESIDENT Diarrhea PHARYNGITIS 462 Active Cherelle Speaks ORAL AND MAXILLOFACIAL SURGERY RESIDENT Acute pharyngitis Colitis 558.9 Active Mima Erazo ORAL AND MAXILLOFACIAL SURGERY RESIDENT Other and unspecified noninfectious gastroenteritis and colitis WOUND, OPEN, NOSE ICD-873.20 Inactive Alina Castaneda MD PhD DIABETES, TYPE 2 ICD-250.00 Inactive Alina Castaneda MD PhD HYPERTENSION ICD-401.9 Inactive Alina Castaneda MD PhD URI ICD-465.9 Inactive Alina Castaneda MD PhD CHEST PAIN ICD-786.50 Inactive Alina Castaneda MD PhD FH STROKE ICD-V17.1 Inactive Marvel Charles TELEMETRY NURSE FATIGUE ICD-780.79 Inactive Alina Castaneda MD PhD [...] more than 8 in 24 hours DIPHENOXYLATE-ATROPINE 95225929499 Active Grace Azam RMA Active FLUVOXAMINE MALEATE 100 MG ORAL TABS take one tab every AM et HS, and take 1/ 2 tab at noon FLUVOXAMINE MALEATE 37886198282 Active Grace Azam RMA Active METOPROLOL SUCCINATE 100 MG [id number] 1 by mouth daily for blood pressure METOPROLOL SUCCINATE 26203459688 No Longer Active Grace Azam RMA Active METFORMIN HCL ER 500 MG [id number] Take three tablets by mouth everyday METFORMIN HCL 72300718327 No Longer Active Grace Azam RMA Active LOVAZA 1 GM CAPS 4 daily (for triglycerides) OMEGA-3- ACID ETHYL ESTERS 93794272083 No Longer Active Grace Azam RMA Active TRAZODONE HCL 100 MG ORAL TABS 1 tab by mouth for sleep TRAZODONE HCL 49249703829 No Longer Active Grace Azam RMA Active NOVOFINE 32G X 6 MM MISC use one four times per day INSULIN PEN NEEDLE 97216252282 No Longer Active Grace Nascimento RMA Active BACTROBAN 2 % CREAM Apply to affected area BID for up to 10 days MUPIROCIN CALCIUM 85728879119 No Longer Active Grace Nascimento RMA Active ZOFRAN 4 MG TABS 1 po q4hr PRN Nausea ONDANSETRON HCL 57124727614 Active Salina Han RMA Active KEFLEX 500 MG CAP 1 po BID x 7 days CEPHALEXIN 08400656258 No Longer Active Cherelle Speaks ORAL AND MAXILLOFACIAL SURGERY RESIDENT Active FLUVOXAMINE MALEATE 100 MG TABS Take one (1) tablet by mouth am, 1/2 at noon FLUVOXAMINE MALEATE 21244966392 No Longer Active Mima Vadimum ORAL AND MAXILLOFACIAL SURGERY RESIDENT Active CORICIDIN HBP CONGESTION/COUGH 10-200 MG ORAL CAPS Take as directed on box as needed for cold/flu symptoms DEXTROMETHORPHAN-GUAIFENESIN 47187535687 Active Cherelle Speaks ORAL AND MAXILLOFACIAL SURGERY RESIDENT Active OMEGA-3 300 MG ORAL CAPS 4 caps by mouth daily OMEGA-3 FATTY ACIDS 36934729094 Active Cherelle Speaks ORAL AND MAXILLOFACIAL SURGERY RESIDENT Active FLUVOXAMINE MALEATE 100 MG ORAL TABS Take 1/2 tab at noon FLUVOXAMINE MALEATE 87798879996 No Longer Active Cherelle Speaks ORAL AND MAXILLOFACIAL SURGERY RESIDENT Active [facility] LUBRICANT EYE DROPS 0.4-0.3 % OPHTH SOLN POLYETHYL GLYCOL-PROPYL GLYCOL 76171536444 Active Mima Yokum ORAL AND MAXILLOFACIAL SURGERY RESIDENT Active CLONAZEPAM 1 MG TABS 1/2 pill by mouth three times daily CLONAZEPAM 79427920582 Active Alina Castaneda MD PhD Active MIRALAX POWD 17g by mouth daily, for constipation POLYETHYLENE GLYCOL 3350 94890612439 Active Alina Castaneda MD PhD Active HYDROCODONE-ACETAMINOPHEN 5-325 MG TABS 2 tabs by mouth three times daily for pain HYDROCODONE-ACETAMINOPHEN 81226185866 Active Mima Yokum ORAL AND MAXILLOFACIAL SURGERY RESIDENT Active HUMALOG KWIKPEN 100 UNIT/ML SC SOPN 20 units with breakfast, 10 units with lunch, 10 units with dinner, for diabetes INSULIN LISPRO (HUMAN ) 30028090658 Active Alina Castaneda MD PhD Active LEVEMIR FLEXTOUCH 100 UNIT/ML SC SOPN 70 units SQ each evening, for diabetes INSULIN DETEMIR 65024054787 Active Alina Castaneda MD PhD Active LATUDA 120 MG ORAL TABS 1 pill by mouth nightly LURASIDONE HCL 58506383288 Active Alina Castaneda MD PhD Active COLACE 100 MG CAPS 1 pill by mouth twice daily, for constipation DOCUSATE SODIUM 13524236887 Active Alina Castaneda MD PhD Active TRUETEST TEST STRP check blood sugars 3x/day GLUCOSE BLOOD 82679732967 Active Marvel MENDOZAP Active ACCU-CHEK ROSA UZMA Use device to check blood sugars BLOOD GLUCOSE MONITORING SUPPL 42975341013 No Longer Active Marvel MARROQUIN Active ACCU-CHEK ROSA INVITR STRP use strips with device to check blood sugars 3 times daily GLUCOSE BLOOD 91469549781 No Longer Active Marvel MARROQUIN Active VERAPAMIL HCL ER 180 MG ORAL CR-TABS 1 pill by mouth twice daily, for migraine prevention VERAPAMIL HCL 50255293707 Active Alina Castaneda MD PhD Active CYCLOBENZAPRINE HCL 10 MG TABS 1 tablet by mouth three times daily, scheduled CYCLOBENZAPRINE HCL 29706481279 No Longer Active Alina Castaneda MD PhD Active HUMALOG 100 UNIT/ML SOLN Take 20 units with breakfast, 10u with lunch and suppetr. INSULIN LISPRO (HUMAN) 89565627097 No Longer Active Alina Castaneda MD PhD Active TRUETEST TEST STRP check sugars 4x/day GLUCOSE BLOOD 61694017830 No Longer Active Alina Castaneda MD PhD Active MORPHINE SULFATE 30 MG TABS 1 pill by mouth twice daily, for pain MORPHINE SULFATE 20284239376 Active Mima Erazo ORAL AND MAXILLOFACIAL SURGERY RESIDENT Active ACYCLOVIR 400 MG ORAL TABS 1 pill three times daily x 5 days, for cold sore outbreak ACYCLOVIR 47853805536 No Longer Active Alina Castaneda MD PhD Active PENICILLIN V POTASSIUM 500 MG TABS 1 pill by mouth three times daily PENICILLIN V POTASSIUM 90412705419 No Longer Active Alina Castaneda MD PhD Active UROXATRAL 10 MG [id number]-QLP Take 1 tablet by mouth daily ALFUZOSIN HCL 58022171125 No Longer Active Alina Castaneda MD PhD Active THIOTHIXENE 5 MG CAPS by mouth twice a day THIOTHIXENE 44399898767 No Longer Active Alina Castaneda MD PhD Active ZYPREXA 7.5 MG TABS 1 at HS OLANZAPINE 20342754380 No Longer Active Alina Castaneda MD PhD Active BD INSULIN SYRINGE 28G X 1/2" 1 ML MISC 1 four times per day INSULIN SYRINGE-NEEDLE U-100 59546750751 Active Brooksnivia Charles TELEMETRY NURSE Active TOLTERODINE TARTRATE 2 MG TABS 1 pill twice daily, for bladder TOLTERODINE TARTRATE 52256253270 Active Alina Castaneda MD PhD Active DETROL LA 4 MG [id number]-LCX Take 1 tablet by mouth daily TOLTERODINE TARTRATE 91516729657 No Longer Active Alina Castaneda MD PhD Active TERESE CONTOUR TEST STRP monitor blood sugars 3x/day GLUCOSE BLOOD 84250284247 No Longer Active Alina Castaneda MD PhD Active EQL TRUETEST TEST STRP Test blood sugar TID GLUCOSE BLOOD 73201770211 No Longer Active Alina Castaneda MD PhD Active FLUTICASONE PROPIONATE 50 MCG/ACT SUSP 2 sprays each nostril qDay x 30 days FLUTICASONE PROPIONATE 29899506777 No Longer Active Alina Castaneda MD PhD Active IBUPROFEN 200 MG TABS 1 Q 6 hr. PRN IBUPROFEN 42360820175 No Longer Active Alina Castaneda MD PhD Active NIACIN ER 500 MG CR-TABS 4 qHS (for triglycerides) NIACIN 47670562497 No Longer Active Alina Castaneda MD PhD Active ALFUZOSIN HCL ER 10 MG [id number]-SMM 1 tablet daily ALFUZOSIN HCL 02409972515 Active Vnaessa Hickey MD Active SAPHRIS 5 MG SUBL by mouth twice a day ASENAPINE MALEATE 05173897133 No Longer Active Maliheh Ziglari TELEMETRY NURSE Active ACETAMINOPHEN 500 MG TABS 2 Q 6 hr. PRN ACETAMINOPHEN 62343312450 No Longer Active Maliheh Ziglari TELEMETRY NURSE Active ORPHENADRINE CITRATE ER 100 MG HZ53I-CBT 1 every 12 hr. as needed ORPHENADRINE CITRATE 88589170287 No Longer Active Alina Castaneda MD PhD Active NIACIN CR 500 MG CR-TABS 2 qHS NIACIN 58624208378 No Longer Active Alina Castaneda MD PhD Active AMOXICILLIN 500 MG CAPS 2 po BID x 10 days AMOXICILLIN 46313580577 No Longer Active Alina Castaneda MD PhD Active HYDROCODONE-ACETAMINOPHEN 7.5-325 MG TABS 1 four times a day as needed for pain HYDROCODONE-ACETAMINOPHEN 72686732537 No Longer Active Alina Castaneda MD PhD Active DOXEPIN HCL 10 MG CAPS Take 1 tablet by mouth daily DOXEPIN HCL 06857095055 No Longer Active Salina ROJAS Active NAVANE 10 MG CAPS 1/2 tablet twice a day THIOTHIXENE No Longer Active Salina ROJAS Active CYCLOBENZAPRINE HCL 10 MG TABS 1/2 tablet by mouth every 8 hours as needed for muscle spasms CYCLOBENZAPRINE HCL 74165932098 No Longer Active Alina Castaneda MD PhD Active BACTROBAN 2 % CREAM apply to ear and nose twice daily MUPIROCIN CALCIUM 98678762975 No Longer Active Alina Castaneda MD PhD Active HYDROCODONE-ACETAMINOPHEN 5-325 MG TABS take one tablet by mouth every four hours as needed for pain HYDROCODONE-ACETAMINOPHEN 76010899605 No Longer Active Alina Castaneda MD PhD Active ZOLPIDEM TARTRATE 10 MG TABS take at bedtime ZOLPIDEM TARTRATE 85535130321 Active Alina Castaneda MD PhD Active ZYPREXA 5 MG TABS take one tablet by mouth every evening OLANZAPINE 87211266575 No Longer Active Alina Castaneda MD PhD Active ALBUTEROL SULFATE 0.083 % NEBU SOLN one vial per nebulizer TID and PRN cough/ soa ALBUTEROL SULFATE 90879202653 No Longer Active Alina Castaenda MD PhD Active GUAIFENESIN 600 MG ZZ87A-LDD 1 tablet by mouth twice daily if needed for cough GUAIFENESIN 51354914366 No Longer Active Marvel MARROQUIN Active AZITHROMYCIN 500 MG SOLR 1 po q day AZITHROMYCIN 72767736037 No Longer Active Alina Castaneda MD PhD Active PROMETHAZINE-CODEINE 6.25-10 MG/5ML SYRP 1 tsp po q 6 hours prn cough PROMETHAZINE-CODEINE 75905977833 No Longer Active Alina Castaneda MD PhD Active CEFDINIR 300 MG CAPS by mouth twice a day CEFDINIR 07163712025 No Longer Active Alina Castaneda MD PhD Active METFORMIN HCL 500 MG OL23A-DVM Take 3 tablets by mouth everyday METFORMIN HCL 65790373599 No Longer Active Alina Castaneda MD PhD Active LEVEMIR 100 UNIT/ML SOLN 90 units SQ qHS INSULIN DETEMIR 28086297188 No Longer Active Marvel MARROQUIN Active TOPROL XL 100 MG RP59F-QID 1 @ HS METOPROLOL SUCCINATE 42647519170 No Longer Active Marvel MARROQUIN Active ALLOPURINOL 300 MG TABS Take one by mouth daily ALLOPURINOL 59647243483 Active Alina Castaneda MD PhD Active ZYPREXA 10 MG TABS Take one by mouth daily OLANZAPINE 20028901832 No Longer Active Alina Castaneda MD PhD Active NOVOLOG 100 UNIT/ML SOLN 40 units with every meal INSULIN ASPART 98917779412 No Longer Active Alina Castaneda MD PhD Active VERAPAMIL HCL CR 120 MG TAB CR 1 qPM VERAPAMIL HCL 25854907615 No Longer Active Salina Han RMA Active ZYPREXA 15 MG TABS Take 1 tablet by mouth daily OLANZAPINE 04806446863 No Longer Active Brooksjohn Charles TELEMETRY NURSE Active LISINOPRIL 20 MG TABS 1 BID LISINOPRIL 29093430556 Active Alina Castaneda MD PhD Active ALBUTEROL SULFATE (2.5 MG/3ML) 0.083% NEBU 1 neb tid and prn cough ALBUTEROL SULFATE 95834668775 No Longer Active Alina Castaneda MD PhD Active TRAVATAN Z 0.004 % SOLN 1 gtt each eye daily TRAVOPROST 98987931910 Active CRYSTAL Suarez Active LANTUS 100 UNIT/ML SOLN 60 units sq q hs INSULIN GLARGINE 76688186838 No Longer Active CRYSTAL Suarez Active ALBUTEROL SULFATE (2.5 MG/3ML) 0.083% NEBU 1 neb tid and prn cough ALBUTEROL SULFATE (2.5 MG/3ML) 0.083% NEBU 417475 ALBUTEROL SULFATE Inactive ZYPREXA 15 MG TABS Take 1 tablet by mouth daily ZYPREXA 15 MG TABS 663628 OLANZAPINE Inactive VERAPAMIL HCL CR 120 MG TAB CR 1 qPM VERAPAMIL HCL CR 120 MG TAB CR VERAPAMIL HCL Inactive ZYPREXA 10 MG TABS Take one by mouth daily ZYPREXA 10 MG TABS 029250 OLANZAPINE Inactive TOPROL XL 100 MG [id number]-DEJ 1 @ HS TOPROL XL 100 MG AY26Y-EMI METOPROLOL SUCCINATE Inactive LEVEMIR 100 UNIT/ML SOLN 90 units SQ qHS LEVEMIR 100 UNIT/ML SOLN INSULIN DETEMIR Inactive PROMETHAZINE-CODEINE 6.25-10 MG/5ML SYRP 1 tsp po q 6 hours prn cough PROMETHAZINE-CODEINE 6.25-10 MG/5ML SYRP 608237 PROMETHAZINE- CODEINE Inactive GUAIFENESIN 600 MG WW44A-RPP 1 tablet by mouth twice daily if needed for cough GUAIFENESIN 600 MG FQ84H-MVL GUAIFENESIN Inactive ALBUTEROL SULFATE 0.083 % NEBU SOLN one vial per nebulizer TID and PRN cough/ soa ALBUTEROL SULFATE 0.083 % NEBU SOLN 304273 ALBUTEROL SULFATE Inactive ZYPREXA 5 MG TABS take one tablet by mouth every evening ZYPREXA 5 MG TABS 656170 OLANZAPINE Inactive HYDROCODONE-ACETAMINOPHEN 5-325 MG TABS take one tablet by mouth every four hours as needed for pain HYDROCODONE-ACETAMINOPHEN 5-325 MG TABS 286773 HYDROCODONE-ACETAMINOPHEN Inactive BACTROBAN 2 % CREAM apply to ear and nose twice daily BACTROBAN 2 % CREAM 779249 MUPIROCIN CALCIUM Inactive CYCLOBENZAPRINE HCL 10 MG TABS 1/2 tablet by mouth every 8 hours as needed for muscle spasms CYCLOBENZAPRINE HCL 10 MG TABS 338180 CYCLOBENZAPRINE HCL Inactive NAVANE 10 MG CAPS 1/2 tablet twice a day NAVANE 10 MG CAPS THIOTHIXENE Inactive DOXEPIN HCL 10 MG CAPS Take 1 tablet by mouth daily DOXEPIN HCL 10 MG CAPS 3104475 DOXEPIN HCL Inactive HYDROCODONE-ACETAMINOPHEN 7.5-325 MG TABS 1 four times a day as needed for pain HYDROCODONE-ACETAMINOPHEN 7.5-325 MG TABS 429441 HYDROCODONE-ACETAMINOPHEN Inactive NIACIN CR 500 MG CR-TABS 2 qHS NIACIN CR 500 MG CR- TABS NIACIN Inactive ORPHENADRINE CITRATE ER 100 MG UM00Z-PNP 1 every 12 hr. as needed ORPHENADRINE CITRATE ER 100 MG WJ89H-NIG ORPHENADRINE CITRATE Inactive ACETAMINOPHEN 500 MG TABS 2 Q 6 hr. PRN ACETAMINOPHEN 500 MG TABS 822295 ACETAMINOPHEN Inactive SAPHRIS 5 MG SUBL by mouth twice a day SAPHRIS 5 MG SUBL ASENAPINE MALEATE Inactive NIACIN ER 500 MG CR-TABS 4 qHS (for triglycerides) NIACIN ER 500 MG CR-TABS NIACIN Inactive IBUPROFEN 200 MG TABS 1 Q 6 hr. PRN IBUPROFEN 200 MG TABS 549821 IBUPROFEN Inactive FLUTICASONE PROPIONATE 50 MCG/ACT SUSP 2 sprays each nostril qDay x 30 days FLUTICASONE PROPIONATE 50 MCG/ACT SUSP 832432 FLUTICASONE PROPIONATE Inactive EQL TRUETEST TEST STRP Test blood sugar TID EQL TRUETEST TEST STRP GLUCOSE BLOOD Inactive TERESE CONTOUR TEST STRP monitor blood sugars 3x/day TERESE CONTOUR TEST STRP GLUCOSE BLOOD Inactive DETROL LA 4 MG WH08B-IUS Take 1 tablet by mouth daily DETROL LA 4 MG LZ49Z-ZZS TOLTERODINE TARTRATE Inactive ZYPREXA 7.5 MG TABS 1 at HS ZYPREXA 7.5 MG TABS 803171 OLANZAPINE Inactive THIOTHIXENE 5 MG CAPS by mouth twice a day THIOTHIXENE 5 MG CAPS 490954 THIOTHIXENE Inactive UROXATRAL 10 MG LG00B-OOB Take 1 tablet by mouth daily UROXATRAL 10 MG HC81Y-LJE ALFUZOSIN HCL Inactive ACYCLOVIR 400 MG ORAL TABS 1 pill three times daily x 5 days, for cold sore outbreak ACYCLOVIR 400 MG ORAL TABS 200488 ACYCLOVIR Inactive TRUETEST TEST STRP check sugars 4x/day TRUETEST TEST STRP GLUCOSE BLOOD Inactive HUMALOG 100 UNIT/ML SOLN Take 20 units with breakfast, 10u with lunch and suppetr. HUMALOG 100 UNIT/ML SOLN INSULIN LISPRO ( HUMAN) Inactive CYCLOBENZAPRINE HCL 10 MG TABS 1 tablet by mouth three times daily, scheduled CYCLOBENZAPRINE HCL 10 MG TABS 127617 CYCLOBENZAPRINE HCL Inactive ACCU-CHEK ROSA INVITR STRP use strips with device to check blood sugars 3 times daily ACCU-CHEK ROSA INVITR STRP GLUCOSE BLOOD Inactive ACCU-CHEK ROSA UZMA Use device to check blood sugars ACCU-CHEK ROSA UZMA BLOOD GLUCOSE MONITORING SUPPL Inactive FLUVOXAMINE MALEATE 100 MG ORAL TABS Take 1/2 tab at noon FLUVOXAMINE MALEATE 100 MG ORAL TABS 402716 FLUVOXAMINE MALEATE Inactive FLUVOXAMINE MALEATE 100 MG TABS Take one (1) tablet by mouth am, 1/2 at noon FLUVOXAMINE MALEATE 100 MG TABS 769368 FLUVOXAMINE MALEATE Inactive BACTROBAN 2 % CREAM Apply to affected area BID for up to 10 days BACTROBAN 2 % CREAM 469120 MUPIROCIN CALCIUM Inactive NOVOFINE 32G X 6 MM MISC use one four times per day NOVOFINE 32G X 6 MM MISC INSULIN PEN NEEDLE Inactive TRAZODONE HCL 100 MG ORAL TABS 1 tab by mouth for sleep TRAZODONE HCL 100 MG ORAL TABS 258753 TRAZODONE HCL Inactive LOVAZA 1 GM CAPS 4 daily (for triglycerides) LOVAZA 1 GM CAPS 779805 RMORX-8-LCCU ETHYL ESTERS Inactive METFORMIN HCL ER 500 MG MB72Q-IDE Take three tablets by mouth everyday METFORMIN HCL ER 500 MG GI66S-ITB METFORMIN HCL Inactive METOPROLOL SUCCINATE 100 MG GB08M-UMV 1 by mouth daily for blood pressure METOPROLOL SUCCINATE 100 MG WS21K-YQG METOPROLOL SUCCINATE Inactive CEFDINIR 300 MG CAPS by mouth twice a day CEFDINIR 300 MG CAPS 479931 CEFDINIR Inactive AZITHROMYCIN 500 MG SOLR 1 po q day AZITHROMYCIN 500 MG SOLR 985029 AZITHROMYCIN Inactive AMOXICILLIN 500 MG CAPS 2 po BID x 10 days AMOXICILLIN 500 MG CAPS 030859 AMOXICILLIN Inactive PENICILLIN V POTASSIUM 500 MG TABS 1 pill by mouth three times daily PENICILLIN V POTASSIUM 500 MG TABS 398805 PENICILLIN V POTASSIUM Inactive KEFLEX 500 MG CAP 1 po BID x 7 days KEFLEX 500 MG CAP 061901 CEPHALEXIN Inactive Immunizations Vaccine Administration Date Value [...] Fluvirin, Fluarix, Agriflu(>=18 yo)) Fluzone (>3 yrs.) [[id number]] Influenza, seasonal, injectable pneumococcal immunization administered Pneumovax [...] HGBA1C - Chemistry sodium, serum 131 mmol/L 472-890 6863/12/30 potassium, serum 5.0 mmol/L 3.5-5.2 chloride, serum 95 mmol/L 98-107 carbon dioxide, venous blood 26.7 mmol/L 21.0-32.0 blood glucose 112 mg/dL 65-110 calcium, serum 9.2 mg/dL 8.5-10.1 urea nitrogen, blood 12 mg/dL 7-18 creatinine, serum 1.10 mg/dL 0.60-1.30 hemoglobin A1C, blood, as % of total hemoglobin 5.8 % 4.3-6.0 Lab Report: Basic Metabolic Panel, HGBA1C, MICROALBUMIN - Chemistry sodium, serum 137 mmol/L 863-658 6401/05/19 potassium, serum 5.2 mmol/L 3.5-5.2 chloride, serum [...] Panel - Chemistry sodium, serum 137 mmol/L 822-506 5054/10/12 potassium, serum 4.8 mmol/L 3.5-5.2 chloride, serum 102 mmol/L 98-107 carbon dioxide, venous blood 27.6 mmol/L 21.0-32.0 blood glucose 168 mg/dL 65-110 calcium, serum 9.0 mg/dL 8.5-10.1 urea nitrogen, blood 15 mg/dL 7-18 creatinine, serum 1.04 mg/dL 0.55-1.30 sodium, serum 138 mmol/L 163-901 8402/11/11 potassium, serum 4.7 mmol/L 3.5-5.2 chloride, serum [...] % 11.6-14.8 platelet count 252 10^3/MM^3 10*3/mm3 019-148 4082/10/12 leukocyte count, blood 5.8 10^3/MM^3 10*3/mm3 [...] 240 10^3/MM^3 10*3/mm3 142-424 Lab Report: Chlamydia/GC APTIMA/94605, HIV-1/2 Agn/Dominga/54512, RPR (DX) W ... - Chemistry hepatitis B surface antigen NON-REACTIVE NON-REACTIVE Lab Report: Chlamydia/GC APTIMA/72537, HIV-1/2 Agn/Dominga/88603, RPR (DX) W ... - Lab chlamydia DNA probe NOT DETECTED NOT DETECTED Lab Report: Chlamydia/GC APTIMA/21646, HIV-1/2 Agn/Dominga/96796, RPR (DX) W ... - Microbiology Neisseria gonorrhoeae DNA probe NOT DETECTED NOT DETECTED Lab Report: Chlamydia/GC APTIMA/24950, HIV-1/2 Agn/Dominga/95701, RPR (DX) W ... - Serology rapid plasma reagin antibody titer NON-REACTIVE NON-REACTIVE Lab Report: HGBA1C - Chemistry hemoglobin A1C, blood, as % of total hemoglobin 6.1 % 4.3-6.0 Lab Report: Lipid Panel, HEPATIC PANEL, MICROALBUMIN, CBC - Chemistry cholesterol, serum 131 mg/dL 201-116 6214/06/03 triglyceride, serum, fasting 383 mg/dL 30-200 HDL [...] 4.7 mg/dL 2.6-7.2 cholesterol, serum 142 mg/dL 333-898 2628/06/26 triglyceride, serum, fasting 272 mg/dL 30-200 HDL [...] negative Encounters Code Encounter Date Provider Facility CPT-36513 Level 3 Est. Patient 14:39:00 FINAL ASSEMBLY AND PACKING SUPERVISOR Vanessa Hickey MD [facility] CPT-29807 Level 2 Est. Patient 18:43:34 CDT Mima Erazo [facility] CPT-26412 Level 3 Est. Patient 16:22:09 CDT Cherelle Avila [facility]-31912 Level 4 Est. Patient 17:55:14 CDT Mima Erazo [facility] CPT-36289 Level 2 Est. Patient 17:13:21 CDT Alina Castaneda MD [facility]33707 Level 3 Est. Patient 14:46:15 CDT Vanessa Hickey MD [facility]-24908 Level 3 Est. Patient 09:34:56 CDT Alina Castaneda MD [facility]93125 Level 3 Est. Patient 21:40:19 CDT Mima Erazo [facility]-73666 Level 3 Est. Patient 09:26:40 CDT Marvel Charles [facility]-12572 Level 3 Est. Patient 12:36:43 CDT Vanessa Hickey MD [facility]61422 Level 3 Est. Patient 12:57:49 CDT Vanessa Hickey MD [facility]-79600 Level 3 Est. Patient 00:28:25 CDT Alina Castaneda MD [facility]-51548 Level 2 Est. Patient 12:52:14 CDT Alina Castaneda MD [facility]30988 Level 3 Est. Patient 11:51:18 FINAL ASSEMBLY AND PACKING SUPERVISOR Alina Castaneda MD [facility]79913 Level 3 Est. Patient 10:09:22 FINAL ASSEMBLY AND PACKING SUPERVISOR Alina Castaneda MD [facility]89300 Level 3 Est. Patient 14:36:26 FINAL ASSEMBLY AND PACKING SUPERVISOR Marvel Charles [facility] [place]91353 Level 3 Est. Patient 13:34:47 FINAL ASSEMBLY AND PACKING SUPERVISOR Alina Castaneda MD PhD [facility]-06712 Level 3 Est. Patient 19:52:08 FINAL ASSEMBLY AND PACKING SUPERVISOR Alina Castaneda MD [facility]-33045 Level 3 Est. Patient 10:01:51 FINAL ASSEMBLY AND PACKING SUPERVISOR Marvel Gurdeepajayestela [facility]-41816 Level 3 Est. Patient 21:54:06 CDT Vanessa Hickey MD [facility]-57453 Level 3 Est. Patient 08:54:46 CDT Alina Castaneda MD [facility]-14983 Level 3 Est. Patient 09:32:11 CDT [facility] Est[facility] Patient 12:02:49 CDT Alina Catsaneda MD [facility]-19443 Level 3 Est. Patient 19:17:33 CDT Alina Castaneda MD [facility]-47446 Level 3 Est. Patient 13:19:10 CDT Brooksjohn Charles [facility]-23237 Level 3 Est. Patient 08:20:05 CDT Alina Castaneda MD [facility]-31701 Level 3 Est. Patient 15:17:18 CDT Alina Castaneda MD [facility]-68360 Level 3 Est. Patient 14:25:36 FINAL ASSEMBLY AND PACKING SUPERVISOR Brookslashondanivia Araceli [facility]-62492 Level 3 Est. Patient 10:09:15 FINAL ASSEMBLY AND PACKING SUPERVISOR Marvel Araceli [facility]-53655 Level 3 Est. Patient 21:28:43 CDT Alina Castaneda MD [facility]-60096 Level 3 Est. Patient 15:20:11 CDT Marvel Charles [facility] CPT-96398 Level 4 Est. Patient 19:08:12 CDT Alina Castaneda MD [facility]-50464 Level 3 Est. Patient 15:06:39 [facility]-65909 Level 4 Est. Patient 17:48:15 CDT Alina Castaneda MD [facility]-53162 Level 3 Est. Patient 14:53:49 CDT Alina Castaneda MD [facility]-21760 Level 3 Est. Patient 09:35:16 CDT Alina Castaneda MD [facility]-28769 Level 3 Est. Patient 12:23:22 CDT Alina Castaneda MD [facility]-49476 Level 3 Est. Patient 16:19:15 CDT Alina Castaneda MD [facility]-45481 Level 3 Est. Patient 21:39:56 FINAL ASSEMBLY AND PACKING SUPERVISOR Alina Castaneda MD [facility]-59594 Level 4 Est. Patient 14:12:56 FINAL ASSEMBLY AND PACKING SUPERVISOR Alina Castaneda MD [facility] [facility]-81487 Level 2 Est. Patient 15:34:57 FINAL ASSEMBLY AND PACKING SUPERVISOR Alina Castaneda MD [facility]-71538 Level 3 Est. Patient 12:17:04 FINAL ASSEMBLY AND PACKING SUPERVISOR Alina Castaneda MD [facility]-27055 Level 3 Est. Patient 09:18:18 FINAL ASSEMBLY AND PACKING SUPERVISOR Marvel Charles [facility]-11479 Level 2 Est. Patient 21:50:24 CDT Alina Castaneda MD [facility]41584 Level 3 Est. Patient 09:17:28 CDT Marvel Araceli [facility]-94652 Level 4 Est. Patient 18:54:02 CDT Alina Castaneda MD [facility]-38837 Level 3 Est. Patient 10:47:10 CDT Alina Castaneda MD [facility]-68774 Level 3 Est. Patient 09:22:20 CDT Marvel Araceli [facility]-40922 Level 3 Est. Patient 16:39:43 CDT Marvel Araceli [facility]-76643 Level 3 Est. Patient 16:05:16 CDT Alina Castaneda MD [facility]-03448 Level 3 Est. Patient 00:29:15 CDT Alina Castaneda MD [facility]-97740 Level 3 Est. Patient 10:49:22 FINAL ASSEMBLY AND PACKING SUPERVISOR Borokslashondanivia Araceli [facility]-28254 Level 3 Est. Patient 21:30:19 FINAL ASSEMBLY AND PACKING SUPERVISOR Alina Castaneda MD [facility]-42853 Level 4 Est. Patient 17:04:11 FINAL ASSEMBLY AND PACKING SUPERVISOR Brookslashondanivia Araceli [facility]-21361 Level 3 Est. Patient 15:34:11 FINAL ASSEMBLY AND PACKING SUPERVISOR Brookslashondanivia Araceli [facility]-56564 Level 2 Est. Patient 12:51:58 FINAL ASSEMBLY AND PACKING SUPERVISOR Alina Castaneda MD [facility]-81571 Level 3 Est. Patient 13:20:01 FINAL ASSEMBLY AND PACKING SUPERVISOR Alina Castaneda MD [facility]-59957 Level 3 Est. Patient 09:23:35 CDT Alina Castaneda MD [facility] Procedures Code Procedure Name Date Entry Date Standard Description CPT-79785 Bladder Scan 14:39:01 FINAL ASSEMBLY AND PACKING SUPERVISOR CPT-TCMM Transitional Care Mgmt-Moderate 10:30:19 FINAL ASSEMBLY AND PACKING SUPERVISOR CPT-90578 Bladder Scan 12:36:44 CDT CPT-79315 Bladder Scan 21:54:06 CDT CPT-G0008 Administration of Influenza Virus Vaccine 13:05:26 CDT CPT-15076 Fluzone Quadrivalent Intramuscular Suspension 0.5 ML 13: 05:26 CDT CPT-89441 Administration single or combination vaccine inc oral 11 :49:51 CDT CPT-23850 Pneumovax 11:49:51 CDT CPT-29250 Ribs unilateral 2V 12:37:22 FINAL ASSEMBLY AND PACKING SUPERVISOR CPT-36248 Chest 2V Frontal and Lat 17:15:26 CDT CPT-21129 Abx/Therapy Injection 18:54:02 CDT CPT-J0696 Rocephin 1000 mg (Ceftriaxone) 16:00:32 CDT CPT-16541 Chest 2V Frontal and Lat 15:26:45 CDT CPT-75967 Chest 2V Frontal and Lat 10:23:27 CDT CPT-55931 Venipuncture Draw Fee 10:11:00 CDT CPT-19591 Administration single or combination vaccine inc oral 11 :56:38 CDT CPT-81905 Influenza split virus > age 3 11:56:38 CDT CPT-11840 Venipuncture Draw Fee 08:49:54 FINAL ASSEMBLY AND PACKING SUPERVISOR CPT-32558 EKG Trac and Interp 17:54:19 FINAL ASSEMBLY AND PACKING SUPERVISOR
--- OUTSIDE RECORDS SUMMARY | 2018-07-02 16:40 | XMS REPORT | Clinical Summary ---
Author Author Admin, TERELL Organization [facility] Address Unknown Phone Unavailable Allergies, Adverse Reactions, [...] HEMATOMA ICD-432.1 Inactive Alina Castaneda MD PhD DIABETES, TYPE 2 ICD-250.00 Inactive Alina Castaneda MD PhD SPECIAL SCREENING FOR MALIGNANT NEOPLASM OF PROSTATE ICD-V76.44 Inactive Alina Castaneda MD PhD Confusion ICD-298.9 Inactive Alina Castaneda MD PhD Dizziness ICD-780.4 Inactive Alina Castaneda MD PhD Hypoglycemia ICD-251.2 Inactive Alina Castaneda MD PhD Medication List Medication Instructions Start Date Stop Date Generic Name NDC Status Provider Patient Instruction TRUETEST TEST STRP check blood sugars 3x/day GLUCOSE BLOOD 72832997438 Active Marvel MARROQUIN Active ACCU-CHEK ROSA UZMA Use device to check blood sugars BLOOD GLUCOSE MONITORING SUPPL 64688159941 No Longer Active Marvel MARROQUIN Active ACCU-CHEK ROSA INVITR STRP use strips with device to check blood sugars 3 times daily GLUCOSE BLOOD 87232455179 No Longer Active Marvel MARROQUIN Active VERAPAMIL HCL ER 180 MG ORAL CR-TABS 1 pill by mouth twice daily, for migraine prevention VERAPAMIL HCL 84282686194 Active Alina Castaneda MD PhD Active CYCLOBENZAPRINE HCL 10 MG TABS 1 tablet by mouth three times daily, scheduled CYCLOBENZAPRINE HCL 90899484293 No Longer Active Alina Castaneda MD PhD Active HUMALOG 100 UNIT/ML SOLN Take 20 units with breakfast, 10u with lunch and suppetr. INSULIN LISPRO (HUMAN) 44248335797 No Longer Active Alina Castaneda MD PhD Active TRUETEST TEST STRP check sugars 4x/day GLUCOSE BLOOD 61136261855 No Longer Active Alina Castaneda MD PhD Active MORPHINE SULFATE 30 MG TABS 1 pill by mouth twice daily, for pain MORPHINE SULFATE 35377891205 Active Alina Castaneda MD PhD Active ACYCLOVIR 400 MG ORAL TABS 1 pill three times daily x 5 days, for cold sore outbreak ACYCLOVIR 92908994127 No Longer Active Alina Castaneda MD PhD Active PENICILLIN V POTASSIUM 500 MG TABS 1 pill by mouth three times daily PENICILLIN V POTASSIUM 21713199160 No Longer Active Alina Castaneda MD PhD Active LATUDA 80 MG TABS 1 tab by mouth every evening LURASIDONE HCL 53539735878 Active Alina Castaneda MD PhD Active UROXATRAL 10 MG AL68B-YCQ Take 1 tablet by mouth daily ALFUZOSIN HCL 35365074345 No Longer Active Alina Castaneda MD PhD Active THIOTHIXENE 5 MG CAPS by mouth twice a day THIOTHIXENE 91746068822 No Longer Active Alina Castaneda MD PhD Active ZYPREXA 7.5 MG TABS 1 at HS OLANZAPINE 84708071661 No Longer Active Alina Castaneda MD PhD Active LEVEMIR 100 UNIT/ML SOLN Take 70 u at 7-8pm INSULIN DETEMIR 41730370230 Active Maliheh Ziglari MARKETING PROFESSOR Active BD INSULIN SYRINGE 28G X 1/2" 1 ML MISC 1 four times per day INSULIN SYRINGE-NEEDLE U-100 83011054269 Active Maliheh Ziglari MARKETING PROFESSOR Active TOLTERODINE TARTRATE 2 MG TABS 1 pill twice daily, for bladder TOLTERODINE TARTRATE 15805134811 Active Alina Castaneda MD PhD Active DETROL LA 4 MG [id number] Take 1 tablet by mouth daily TOLTERODINE TARTRATE 42873589312 No Longer Active Alina Castaneda MD PhD Active HYDROCODONE-ACETAMINOPHEN 5-325 MG TABS 2 tabs by mouth three times daily as needed for pain HYDROCODONE-ACETAMINOPHEN 96459637621 Active Alina Castaneda MD PhD Active TERESE CONTOUR TEST STRP monitor blood sugars 3x/day GLUCOSE BLOOD 02082577493 No Longer Active Alina Castaneda MD PhD Active EQL TRUETEST TEST STRP Test blood sugar TID GLUCOSE BLOOD 56422917172 No Longer Active Alina Castaneda MD PhD Active FLUTICASONE PROPIONATE 50 MCG/ACT SUSP 2 sprays each nostril qDay x 30 days FLUTICASONE PROPIONATE 85391004292 No Longer Active Alina Castaneda MD PhD Active IBUPROFEN 200 MG TABS 1 Q 6 hr. PRN IBUPROFEN 49282646072 No Longer Active Alina Castaneda MD PhD Active NIACIN ER 500 MG CR-TABS 4 qHS (for triglycerides) NIACIN 92446204562 No Longer Active Alina Castaneda MD PhD Active ALFUZOSIN HCL ER 10 MG [id number] 1 tablet daily ALFUZOSIN HCL 51916033401 Active Vanessa Hickey MD Active CLONAZEPAM 1 MG TABS 1 pill by mouth three times daily CLONAZEPAM 43434832201 Active Alina Castaneda MD PhD Active LOVAZA 1 GM CAPS 4 daily (for triglycerides) [id number] ETHYL ESTERS 60068883772 Active Alina Castaneda MD PhD Active SAPHRIS 5 MG SUBL by mouth twice a day ASENAPINE MALEATE 37497042318 No Longer Active Maljohn Mackenzieglari MARKETING PROFESSOR Active ACETAMINOPHEN 500 MG TABS 2 Q 6 hr. PRN ACETAMINOPHEN 87577469243 No Longer Active Mallashondaeh Ziglari MARKETING PROFESSOR Active ORPHENADRINE CITRATE ER 100 MG [id number]-CRX 1 every 12 hr. as needed ORPHENADRINE CITRATE 02243436435 No Longer Active Alina Castaneda MD PhD Active NIACIN CR 500 MG CR-TABS 2 qHS NIACIN 34249276285 No Longer Active Alina Castaneda MD PhD Active AMOXICILLIN 500 MG CAPS 2 po BID x 10 days AMOXICILLIN 44590180108 No Longer Active Alina Castaneda MD PhD Active HYDROCODONE-ACETAMINOPHEN 7.5-325 MG TABS 1 four times a day as needed for pain HYDROCODONE-ACETAMINOPHEN 59472235682 No Longer Active Alina Castaneda MD PhD Active METFORMIN HCL ER 500 MG [id number] Take three tablets by mouth everyday METFORMIN HCL 37074294687 Active Alina aCstaneda MD PhD Active DOXEPIN HCL 10 MG CAPS Take 1 tablet by mouth daily DOXEPIN HCL 99958024178 No Longer Active Salina Ervinford A Active NAVANE 10 MG CAPS 1/2 tablet twice a day THIOTHIXENE No Longer Active Salina Han A Active CYCLOBENZAPRINE HCL 10 MG TABS 1/2 tablet by mouth every 8 hours as needed for muscle spasms CYCLOBENZAPRINE HCL 00995539416 No Longer Active Alina Castaneda MD PhD Active BACTROBAN 2 % CREAM apply to ear and nose twice daily MUPIROCIN CALCIUM 29828703117 No Longer Active Alina Castaneda MD PhD Active HYDROCODONE-ACETAMINOPHEN 5-325 MG TABS take one tablet by mouth every four hours as needed for pain HYDROCODONE-ACETAMINOPHEN 75778277455 No Longer Active Alina Castaneda MD PhD Active ZOLPIDEM TARTRATE 10 MG TABS take at bedtime ZOLPIDEM TARTRATE 93241701782 Active Alina Castaneda MD PhD Active ZYPREXA 5 MG TABS take one tablet by mouth every evening OLANZAPINE 31274699942 No Longer Active Alina Castaneda MD PhD Active ALBUTEROL SULFATE 0.083 % NEBU SOLN one vial per nebulizer TID and PRN cough/ soa ALBUTEROL SULFATE 94450026448 No Longer Active Alina Castaneda MD PhD Active GUAIFENESIN 600 MG [id number]-[id number] 1 tablet by mouth twice daily if needed for cough GUAIFENESIN 63441110158 No Longer Active Marvel MARROQUIN Active AZITHROMYCIN 500 MG SOLR 1 po q day AZITHROMYCIN 61628452361 No Longer Active Alina Castaneda MD PhD Active METOPROLOL SUCCINATE 100 MG EC51U-UQZ 1 by mouth daily for blood pressure METOPROLOL SUCCINATE 43945462629 Active Alina Castaneda MD PhD Active PROMETHAZINE-CODEINE 6.25-10 MG/5ML SYRP 1 tsp po q 6 hours prn cough PROMETHAZINE-CODEINE 13236172602 No Longer Active Alina Castaneda MD PhD Active CEFDINIR 300 MG CAPS by mouth twice a day CEFDINIR 46091383505 No Longer Active Alina Castaneda MD PhD Active METFORMIN HCL 500 MG [id number] Take 3 tablets by mouth everyday METFORMIN HCL 26171131230 No Longer Active Alina Castaneda MD PhD Active LEVEMIR 100 UNIT/ML SOLN 90 units SQ qHS INSULIN DETEMIR 41670030221 No Longer Active Marvel MARROQUIN Active TOPROL XL 100 MG AK82Y-CFP 1 @ HS METOPROLOL SUCCINATE 86067761439 No Longer Active Marvel MARROQUIN Active ALLOPURINOL 300 MG TABS Take one by mouth daily ALLOPURINOL 49158686126 Active Alina Castaneda MD PhD Active ZYPREXA 10 MG TABS Take one by mouth daily OLANZAPINE 57881885831 No Longer Active Alina Castaneda MD PhD Active NOVOLOG 100 UNIT/ML SOLN 40 units with every meal INSULIN ASPART 29833586194 No Longer Active Alina Castaneda MD PhD Active VERAPAMIL HCL CR 120 MG TAB CR 1 qPM VERAPAMIL HCL 37187097491 No Longer Active Salina Han RMA Active ZYPREXA 15 MG TABS Take 1 tablet by mouth daily OLANZAPINE 66140990132 No Longer Active Marvel MARROQUIN Active LISINOPRIL 20 MG TABS 1 BID LISINOPRIL 06805346816 Active Alina Castaneda MD PhD Active ALBUTEROL SULFATE (2.5 MG/3ML) 0.083% NEBU 1 neb tid and prn cough ALBUTEROL SULFATE 44873998184 No Longer Active Alina Castaneda MD PhD Active FLUVOXAMINE MALEATE 100 MG TABS Take one (1) tablet by mouth am, 1/2 at noon, 1 pm FLUVOXAMINE MALEATE 45359013833 Active Alina Castaneda MD PhD Active TRAVATAN Z 0.004 % SOLN 1 gtt each eye daily TRAVOPROST 99933815151 Active CRYSTAL Suarez Active LANTUS 100 UNIT/ML SOLN 60 units sq q hs INSULIN GLARGINE 66746115636 No Longer Active CRYSTAL Suarez Active ALBUTEROL SULFATE (2.5 MG/3ML) 0.083% NEBU 1 neb tid and prn cough ALBUTEROL SULFATE (2.5 MG/3ML) 0.083% NEBU 129890 ALBUTEROL SULFATE Inactive ZYPREXA 15 MG TABS Take 1 tablet by mouth daily ZYPREXA 15 MG TABS 849633 OLANZAPINE Inactive VERAPAMIL HCL CR 120 MG TAB CR 1 qPM VERAPAMIL HCL CR 120 MG TAB CR VERAPAMIL HCL Inactive ZYPREXA 10 MG TABS Take one by mouth daily ZYPREXA 10 MG TABS 218659 OLANZAPINE Inactive TOPROL XL 100 MG [id number] 1 @ HS TOPROL XL 100 MG NK43Y-WVG METOPROLOL SUCCINATE Inactive LEVEMIR 100 UNIT/ML SOLN 90 units SQ qHS LEVEMIR 100 UNIT/ML SOLN INSULIN DETEMIR Inactive PROMETHAZINE-CODEINE 6.25-10 MG/5ML SYRP 1 tsp po q 6 hours prn cough PROMETHAZINE-CODEINE 6.25-10 MG/5ML SYRP 902904 PROMETHAZINE- CODEINE Inactive GUAIFENESIN 600 MG SB76K-UYK 1 tablet by mouth twice daily if needed for cough GUAIFENESIN 600 MG HU94O-VOG GUAIFENESIN Inactive ALBUTEROL SULFATE 0.083 % NEBU SOLN one vial per nebulizer TID and PRN cough/ soa ALBUTEROL SULFATE 0.083 % NEBU SOLN 750973 ALBUTEROL SULFATE Inactive ZYPREXA 5 MG TABS take one tablet by mouth every evening ZYPREXA 5 MG TABS 267474 OLANZAPINE Inactive HYDROCODONE-ACETAMINOPHEN 5-325 MG TABS take one tablet by mouth every four hours as needed for pain HYDROCODONE-ACETAMINOPHEN 5-325 MG TABS 301150 HYDROCODONE-ACETAMINOPHEN Inactive BACTROBAN 2 % CREAM apply to ear and nose twice daily BACTROBAN 2 % CREAM 827412 MUPIROCIN CALCIUM Inactive CYCLOBENZAPRINE HCL 10 MG TABS 1/2 tablet by mouth every 8 hours as needed for muscle spasms CYCLOBENZAPRINE HCL 10 MG TABS 299695 CYCLOBENZAPRINE HCL Inactive NAVANE 10 MG CAPS 1/2 tablet twice a day NAVANE 10 MG CAPS THIOTHIXENE Inactive DOXEPIN HCL 10 MG CAPS Take 1 tablet by mouth daily DOXEPIN HCL 10 MG CAPS 1496156 DOXEPIN HCL Inactive HYDROCODONE-ACETAMINOPHEN 7.5-325 MG TABS 1 four times a day as needed for pain HYDROCODONE-ACETAMINOPHEN 7.5-325 MG TABS 834435 HYDROCODONE-ACETAMINOPHEN Inactive NIACIN CR 500 MG CR-TABS 2 qHS NIACIN CR 500 MG CR- TABS NIACIN Inactive ORPHENADRINE CITRATE ER 100 MG GU25Q-FDA 1 every 12 hr. as needed ORPHENADRINE CITRATE ER 100 MG [id number]-TDF ORPHENADRINE CITRATE Inactive ACETAMINOPHEN 500 MG TABS 2 Q 6 hr. PRN ACETAMINOPHEN 500 MG TABS 604495 ACETAMINOPHEN Inactive SAPHRIS 5 MG SUBL by mouth twice a day SAPHRIS 5 MG SUBL ASENAPINE MALEATE Inactive NIACIN ER 500 MG CR-TABS 4 qHS (for triglycerides) NIACIN ER 500 MG CR-TABS NIACIN Inactive IBUPROFEN 200 MG TABS 1 Q 6 hr. PRN IBUPROFEN 200 MG TABS 877199 IBUPROFEN Inactive FLUTICASONE PROPIONATE 50 MCG/ACT SUSP 2 sprays each nostril qDay x 30 days FLUTICASONE PROPIONATE 50 MCG/ACT SUSP 483863 FLUTICASONE PROPIONATE Inactive EQL TRUETEST TEST STRP Test blood sugar TID EQL TRUETEST TEST STRP GLUCOSE BLOOD Inactive TERESE CONTOUR TEST STRP monitor blood sugars 3x/day TERESE CONTOUR TEST STRP GLUCOSE BLOOD Inactive DETROL LA 4 MG [id number]-RKD Take 1 tablet by mouth daily DETROL LA 4 MG [id number] TOLTERODINE TARTRATE Inactive ZYPREXA 7.5 MG TABS 1 at HS ZYPREXA 7.5 MG TABS 497610 OLANZAPINE Inactive THIOTHIXENE 5 MG CAPS by mouth twice a day THIOTHIXENE 5 MG CAPS 402897 THIOTHIXENE Inactive UROXATRAL 10 MG EC81O-KLN Take 1 tablet by mouth daily UROXATRAL 10 MG IX02N-NCL ALFUZOSIN HCL Inactive ACYCLOVIR 400 MG ORAL TABS 1 pill three times daily x 5 days, for cold sore outbreak ACYCLOVIR 400 MG ORAL TABS 388876 ACYCLOVIR Inactive TRUETEST TEST STRP check sugars 4x/day TRUETEST TEST STRP GLUCOSE BLOOD Inactive HUMALOG 100 UNIT/ML SOLN Take 20 units with breakfast, 10u with lunch and suppetr. HUMALOG 100 UNIT/ML SOLN INSULIN LISPRO ( HUMAN) Inactive CYCLOBENZAPRINE HCL 10 MG TABS 1 tablet by mouth three times daily, scheduled CYCLOBENZAPRINE HCL 10 MG TABS 444052 CYCLOBENZAPRINE HCL Inactive ACCU-CHEK ROSA INVITR STRP use strips with device to check blood sugars 3 times daily ACCU-CHEK ROSA INVITR STRP GLUCOSE BLOOD Inactive ACCU-CHEK ROSA UZMA Use device to check blood sugars ACCU-CHEK ROSA UZMA BLOOD GLUCOSE MONITORING SUPPL Inactive CEFDINIR 300 MG CAPS by mouth twice a day CEFDINIR 300 MG CAPS 517250 CEFDINIR Inactive AZITHROMYCIN 500 MG SOLR 1 po q day AZITHROMYCIN 500 MG SOLR 563220 AZITHROMYCIN Inactive AMOXICILLIN 500 MG CAPS 2 po BID x 10 days AMOXICILLIN 500 MG CAPS 567779 AMOXICILLIN Inactive PENICILLIN V POTASSIUM 500 MG TABS 1 pill by mouth three times daily PENICILLIN V POTASSIUM 500 MG TABS 662804 PENICILLIN V POTASSIUM Inactive Immunizations Vaccine Administration [...] Fluvirin, Fluarix, Agriflu(>=18 yo)) Fluzone (>3 yrs.) [[id number]] Influenza, seasonal, injectable pneumococcal immunization administered Pneumovax [...] HGBA1C - Chemistry sodium, serum 130 mmol/L 894-922 4670/06/09 potassium, serum 4.0 mmol/L 3.5-5.2 chloride, serum 92 mmol/L 98-107 carbon dioxide, venous blood 22.1 mmol/L 21.0-32.0 blood glucose 60 mg/dL 65-110 calcium, serum 9.5 mg/dL 8.5-10.1 urea nitrogen, blood 14 mg/dL 7-18 creatinine, serum 1.30 mg/dL 0.60-1.30 hemoglobin A1C, blood, as % of total hemoglobin 6.0 % 4.3-6.0 sodium, serum 131 mmol/L 939-392 2535/12/30 potassium, serum 5.0 mmol/L 3.5-5.2 chloride, serum [...] 6.0 mg/dL 2.6-7.2 sodium, serum 130 mmol/L 078-476 4154/05/01 potassium, serum 5.2 mmol/L 3.5-5.2 chloride, serum [...] 0.40 mg/dL 0.00-1.00 cholesterol, serum 151 mg/dL 812-445 0620/05/01 triglyceride, serum, fasting 356 mg/dL 30-200 HDL [...] Panel - Chemistry sodium, serum 127 mmol/L 993-779 6881/10/27 potassium, serum 4.1 mmol/L 3.5-5.2 chloride, serum [...] mg/dL Encounters Code Encounter Date Provider Facility CPT-54860 Level 3 Est. Patient 12:57:49 CDT Vanessa Hickey MD [facility] CPT-09600 Level 3 Est. Patient 00:28:25 CDT Alina Castaneda MD PhD [facility] CPT-32593 Level 2 Est. Patient 12:52:14 CDT Alina Castaneda MD PhD [facility] CPT-01074 Level 3 Est. Patient 11:51:18 THERMAL CUTTING MACHINE OPERATOR Alina Castaneda MD PhD [facility] CPT-41866 Level 3 Est. Patient 10:09:22 THERMAL CUTTING MACHINE OPERATOR Alina Castaneda MD PhD [facility] CPT-08683 Level 3 Est. Patient 14:36:26 THERMAL CUTTING MACHINE OPERATOR Marvel Araceli [facility]-88103 Level 3 Est. Patient 13:34:47 THERMAL CUTTING MACHINE OPERATOR Alina [facility] [id number] Level 3 Est. Patient 19:52:08 THERMAL CUTTING MACHINE OPERATOR Alina Castaneda MD [facility] [id number] Level 3 Est. Patient 10:01:51 THERMAL CUTTING MACHINE OPERATOR Marvel Gurdeepajayestela [facility]09480 Level 3 Est. Patient 21:54:06 CDT Vanessa Hickey MD [facility]-02730 Level 3 Est. Patient 08:54:46 CDT Alina Castaneda MD [facility] [id number] Level 3 Est. Patient 09:32:11 CDT Brooksjohn Charles [facility]-73158 Level 3 Est. Patient 12:02:49 CDT Alina Castaneda MD [facility]-42899 Level 3 Est. Patient 19:17:33 CDT Alina Castaneda MD [facility] [id number] Level 3 Est. Patient 13:19:10 CDT Marvel Charles [facility]-39042 Level 3 Est. Patient 08:20:05 CDT Alina Castaneda MD [facility] [id number] Level 3 Est. Patient 15:17:18 CDT Alina Castaneda MD [facility] [id number] Level 3 Est. Patient 14:25:36 THERMAL CUTTING MACHINE OPERATOR Marvel Araceli [facility]26562 Level 3 Est. Patient 10:09:15 THERMAL CUTTING MACHINE OPERATOR Marvel Araceli [facility]12904 Level 3 Est. Patient 21:28:43 CDT Alina Castaneda MD [facility]-67586 Level 3 Est. Patient 15:20:11 CDT Marvel Charles [facility]-27903 Level 4 Est. Patient 19:08:12 CDT Alina Castaneda MD [facility]-45321 Level 3 Est. Patient 15:06:39 CDT Marvel Charles [facility]-25571 Level 4 Est. Patient 17:48:15 CDT Alina Castaneda MD [facility]-20595 Level 3 Est. Patient 14:53:49 CDT Alina Castaneda MD [facility]-18174 Level 3 Est. Patient 09:35:16 CDT Alina Castaneda MD [facility]-00970 Level 3 Est. Patient 12:23:22 CDT Alina Castaneda MD [facility]-12831 Level 3 Est. Patient 16:19:15 CDT Alina Castaneda MD [facility]-85592 Level 3 Est. Patient 21:39:56 THERMAL CUTTING MACHINE OPERATOR Alina Castaneda MD [facility]-57352 Level 4 Est. Patient 14:12:56 THERMAL CUTTING MACHINE OPERATOR Alina Castaneda MD [facility]-15834 Level 2 Est. Patient 15:34:57 THERMAL CUTTING MACHINE OPERATOR Alina Castaneda MD [facility]-31380 Level 3 Est. Patient 12:17:04 THERMAL CUTTING MACHINE OPERATOR Alina Castaneda MD [facility]-93072 Level 3 Est. Patient 09:18:18 THERMAL CUTTING MACHINE OPERATOR Marvel Charles [facility]-49493 Level 2 Est. Patient 21:50:24 CDT Alina Castaneda MD [facility]-58495 Level 3 Est. Patient 09:17:28 CDT Marvel Charles [facility]-35797 Level 4 Est. Patient 18:54:02 CDT Alina Castaneda MD [facility] [id number] Level 3 Est. Patient 10:47:10 CDT Alina Castaneda MD [facility] [id number] Level 3 Est. Patient 09:22:20 CDT Marvel Charles [facility]-42863 Level 3 Est. Patient 16:39:43 CDT Marvel Charles [facility]-71183 Level 3 Est. Patient 16:05:16 CDT Alina Castaneda MD [facility] [id number] Level 3 Est. Patient 00:29:15 CDT Alina Castaneda MD [facility] [id number] Level 3 Est. Patient 10:49:22 THERMAL CUTTING MACHINE OPERATOR Marvel Charles [facility]-18279 Level 3 Est. Patient 21:30:19 THERMAL CUTTING MACHINE OPERATOR Alina Castaneda MD [facility]-50428 Level 4 Est. Patient 17:04:11 THERMAL CUTTING MACHINE OPERATOR Marvel Charles [facility]-68052 Level 3 Est. Patient 15:34:11 THERMAL CUTTING MACHINE OPERATOR Marvel Charles [facility]-94091 Level 2 Est. Patient 12:51:58 THERMAL CUTTING MACHINE OPERATOR Alina Castaneda MD [facility] [id number] Level 3 Est. Patient 13:20:01 THERMAL CUTTING MACHINE OPERATOR Alina Castaneda MD [facility] [id number] Level 3 Est. Patient 09:23:35 CDT Alina Castaneda MD PhD [facility] Procedures Code Procedure Name Date Entry Date Standard Description CPT-01608 Bladder Scan 21:54:06 CDT CPT-G0008 Administration of Influenza Virus Vaccine 13:05:26 CDT CPT-34558 Fluzone Quadrivalent Intramuscular Suspension 0.5 ML 13: 05:26 CDT CPT-91623 Administration single or combination vaccine inc oral 11 :49:51 CDT CPT-55092 Pneumovax 11:49:51 CDT CPT-10567 Ribs unilateral 2V 12:37:22 THERMAL CUTTING MACHINE OPERATOR CPT-22054 Chest 2V Frontal and Lat 17:15:26 CDT CPT-48878 Abx/Therapy Injection 18:54:02 CDT CPT-J0696 Rocephin 1000 mg (Ceftriaxone) 16:00:32 CDT CPT-88123 Chest 2V Frontal and Lat 15:26:45 CDT CPT-01364 Chest 2V Frontal and Lat 10:23:27 CDT CPT-00885 Venipuncture Draw Fee 10:11:00 CDT CPT-46616 Administration single or combination vaccine inc oral 11 :56:38 CDT CPT-10960 Influenza split virus > age 3 11:56:38 CDT CPT-94640 Venipuncture Draw Fee 08:49:54 THERMAL CUTTING MACHINE OPERATOR CPT-31426 EKG Trac and Interp 17:54:19 THERMAL CUTTING MACHINE OPERATOR
--- OUTSIDE RECORDS SUMMARY | 2018-07-02 16:42 | XMS REPORT | Clinical Summary ---
Author Author Admin, TERELL Organization [employer] Address Unknown Phone Unavailable Allergies, Adverse Reactions, 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 Erazo AMBULATORY TECHNOLOGIST Benign paroxysmal positional vertigo Vertigo, benign paroxysmal position 386.11 Inactive Mima Erazo AMBULATORY TECHNOLOGIST Benign paroxysmal positional vertigo High-risk sexual behavior V69.2 Active Alina Castaneda MD PhD High-risk sexual behavior Erectile dysfunction 302.72 Active Alina Castaneda MD PhD Psychosexual dysfunction with inhibited sexual excitement Constipation 564.00 Active Alina Castaneda MD PhD Constipation, unspecified Skin lesion 709.9 Active Alina Castaneda MD PhD Unspecified disorder of skin and subcutaneous tissue Malaise and fatigue 780.79 Active Cherelle Speaks AMBULATORY TECHNOLOGIST Other malaise and fatigue Diarrhea 787.91 Active Cherelle Speaks AMBULATORY TECHNOLOGIST Diarrhea PHARYNGITIS 462 Active Cherelle Speaks AMBULATORY TECHNOLOGIST Acute pharyngitis Colitis 558.9 Active Mima Erazo AMBULATORY TECHNOLOGIST Other and unspecified noninfectious gastroenteritis and [...] PhD FH STROKE ICD-V17.1 Inactive Marvel Charles COINING PRESS OPERATOR FATIGUE ICD-780.79 Inactive Alina Castaneda MD [...] Name NDC Status Provider Patient Instruction [facility] MILK OF MAGNESIA 400 MG/5ML ORAL SUSP 30ml by mouth bid prn MAGNESIUM HYDROXIDE 24605397956 Active Mason Loredo MD Active TYLENOL 8 HOUR 650 MG ORAL CR-TABS 1 tab QID prn ACETAMINOPHEN 55869558351 Active Mason Loredo MD Active MYLANTA GAS RELIEF MAXIMUM STR 125 MG ORAL CAPS 30cc every 4 hours prn 12/01 SIMETHICONE 53211316714 Active Mason Loredo MD Active IMODIUM A-D 2 MG ORAL TABS 1 tab QID as needed LOPERAMIDE HCL 07183462982 Active Mason Loredo MD Active FLUVOXAMINE MALEATE 50 MG ORAL TABS 1 tab by mouth daily FLUVOXAMINE MALEATE 94428494292 Active Mason Loredo MD Active TRAVATAN Z 0.004 % SOLN 1 gtt each eye daily TRAVOPROST 72571094799 No Longer Active Mason Loredo MD Active LISINOPRIL 20 MG TABS 1 BID LISINOPRIL 98951172367 No Longer Active Mason Loredo MD Active LEVEMIR FLEXTOUCH 100 UNIT/ML SC SOPN 60 units SQ each evening, for diabetes INSULIN DETEMIR 61121823490 Active Mason Loredo MD Active ZOLPIDEM TARTRATE 10 MG TABS take at bedtime ZOLPIDEM TARTRATE 05983677257 No Longer Active Mason Loredo MD Active HYDROCODONE-ACETAMINOPHEN 5-325 MG TABS 2 tabs by mouth three times daily for pain HYDROCODONE-ACETAMINOPHEN 19226461729 No Longer Active Mason Loredo MD Active ZOFRAN 4 MG TABS 1 po q4hr PRN Nausea ONDANSETRON HCL 26272639372 No Longer Active Mason Loredo MD Active LOMOTIL 2.5-0.025 MG ORAL TABS take 1-2 tabs PO after each stool, no more than 8 in 24 hours DIPHENOXYLATE-ATROPINE 53867986676 No Longer Active Mason Loredo MD Active COLACE 100 MG CAPS 1 pill by mouth twice daily, for constipation DOCUSATE SODIUM 06547462171 No Longer Active Mima Erazo APRN Active FLONASE ALLERGY RELIEF 50 MCG/ACT NASAL SUSP One spray each nostril BID x 1 week then daily FLUTICASONE PROPIONATE 57204951521 Active Mima Vadimum AMBULATORY TECHNOLOGIST Active BD PEN NEEDLE MINI U/F 31G X 5 MM MISC 4 a day INSULIN PEN NEEDLE 35599714791 Active Marvel MARROQUIN Active AMITIZA 24 MCG ORAL CAPS Take one capsule BID for constipation LUBIPROSTONE 33366559448 Active Mimacecily Fierroum AMBULATORY TECHNOLOGIST Active TRUEPLUS LANCETS 30G MISC 3 a day LANCETS 06754319753 Active Marvel Mackenzieglestela COINING PRESS OPERATOR Active TOLTERODINE TARTRATE 2 MG TABS 1 pill twice daily, for bladder TOLTERODINE TARTRATE 38858934249 No Longer Active Vanessa Hickey MD Active AMITIZA 24 MCG ORAL CAPS Take one capsule BID for constipation. LUBIPROSTONE 81678625823 No Longer Active Vanessa Hickey MD Active FLUVOXAMINE MALEATE 100 MG ORAL TABS take one tab every AM et HS, and take 1/ 2 tab at noon FLUVOXAMINE MALEATE 80564228634 Active Grace Azam RMA Active METOPROLOL SUCCINATE 100 MG [id number]-ERB 1 by mouth daily for blood pressure METOPROLOL SUCCINATE 75529498420 No Longer Active Grace Azam RMA Active METFORMIN HCL ER 500 MG [id number] Take three tablets by mouth everyday METFORMIN HCL 25726144526 No Longer Active Grace Azam RMA Active LOVAZA 1 GM CAPS 4 daily (for triglycerides) OMEGA-3- ACID ETHYL ESTERS 40563693662 No Longer Active Grace Azam RMA Active TRAZODONE HCL 100 MG ORAL TABS 1 tab by mouth for sleep TRAZODONE HCL 41384219112 No Longer Active Grace Azam RMA Active NOVOFINE 32G X 6 MM MISC use one four times per day INSULIN PEN NEEDLE 22642014031 No Longer Active Grace Azam RMA Active BACTROBAN 2 % CREAM Apply to affected area BID for up to 10 days MUPIROCIN CALCIUM 48826234997 No Longer Active Grace Azam RMA Active KEFLEX 500 MG CAP 1 po BID x 7 days CEPHALEXIN 56365814746 No Longer Active Cherelle Avila APRN Active FLUVOXAMINE MALEATE 100 MG TABS Take one (1) tablet by mouth am, 1/2 at noon FLUVOXAMINE MALEATE 00327655299 No Longer Active Mima Yoliudmila AMBULATORY TECHNOLOGIST Active CORICIDIN HBP CONGESTION/COUGH 10-200 MG ORAL CAPS Take as directed on box as needed for cold/flu symptoms DEXTROMETHORPHAN-GUAIFENESIN 23366160423 Active Cherelle Speaks AMBULATORY TECHNOLOGIST Active OMEGA-3 300 MG ORAL CAPS 4 caps by mouth daily OMEGA-3 FATTY ACIDS 03967108690 Active Mima Yokum AMBULATORY TECHNOLOGIST Active FLUVOXAMINE MALEATE 100 MG ORAL TABS Take 1/2 tab at noon FLUVOXAMINE MALEATE 40470784943 No Longer Active Cherelle Avila ALBAN Active [facility] LUBRICANT EYE DROPS 0.4-0.3 % OPHTH SOLN POLYETHYL GLYCOL-PROPYL GLYCOL 53075542306 Active Mima Fierroum AMBULATORY TECHNOLOGIST Active CLONAZEPAM 1 MG TABS 1/2 pill by mouth three times daily CLONAZEPAM 64933693560 Active Mason Loredo MD Active MIRALAX POWD 17g by mouth daily, for constipation POLYETHYLENE GLYCOL 3350 57814398655 Active Alina Castaneda MD PhD Active HUMALOG KWIKPEN 100 UNIT/ML SC SOPN 20 units with breakfast, 10 units with lunch, 10 units with dinner, for diabetes INSULIN LISPRO (HUMAN ) 19397803556 Active Alina Castaneda MD PhD Active LATUDA 120 MG ORAL TABS 1 pill by mouth nightly LURASIDONE HCL 21071985026 Active Alina Castaneda MD PhD Active TRUETEST TEST STRP check blood sugars 3x/day GLUCOSE BLOOD 65499923240 Active Maljohn Mackenzieglari COINING PRESS OPERATOR Active ACCU-CHEK ROSA UZMA Use device to check blood sugars BLOOD GLUCOSE MONITORING SUPPL 24544166658 No Longer Active Maliheh 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 COINING PRESS OPERATOR Active ACCU-CHEK ROSA INVITR STRP use strips with device to check blood sugars 3 times daily GLUCOSE BLOOD 79634642647 No Longer Active Maliheh 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 COINING PRESS OPERATOR Active VERAPAMIL HCL ER 180 MG ORAL CR-TABS 1 pill by mouth twice daily, for migraine prevention VERAPAMIL HCL 83035960211 Active CRYSTAL Rodrigues Active CYCLOBENZAPRINE HCL 10 MG TABS 1 tablet by mouth three times daily, scheduled CYCLOBENZAPRINE HCL 51787617782 No Longer Active Alina Castaneda MD PhD Active HUMALOG 100 UNIT/ML SOLN Take 20 units with breakfast, 10u with lunch and suppetr. INSULIN LISPRO (HUMAN) 67188940244 No Longer Active Alina Castaneda MD PhD Active TRUETEST TEST STRP check sugars 4x/day GLUCOSE BLOOD 84295758151 No Longer Active Alina Castaneda MD PhD Active MORPHINE SULFATE 30 MG TABS 1 pill by mouth twice daily, for pain MORPHINE SULFATE 28184021278 Active Mason Loredo MD Active ACYCLOVIR 400 MG ORAL TABS 1 pill three times daily x 5 days, for cold sore outbreak ACYCLOVIR 11508586750 No Longer Active Alina Castaneda MD PhD Active PENICILLIN V POTASSIUM 500 MG TABS 1 pill by mouth three times daily PENICILLIN V POTASSIUM 74318842464 No Longer Active Alina Castaneda MD PhD Active UROXATRAL 10 MG [id number]-[id number] Take 1 tablet by mouth daily ALFUZOSIN HCL 51658021756 No Longer Active Alina Castaneda MD PhD Active THIOTHIXENE 5 MG CAPS by mouth twice a day THIOTHIXENE 83465473172 No Longer Active Alina Castaneda MD PhD Active ZYPREXA 7.5 MG TABS 1 at HS OLANZAPINE 86455794671 No Longer Active Alina Castaneda MD PhD Active BD INSULIN SYRINGE 28G X 1/2" 1 ML MISC 1 four times per day INSULIN SYRINGE-NEEDLE U-100 57878515151 Active [facility] Active DETROL LA 4 MG [id number] Take 1 tablet by mouth daily TOLTERODINE TARTRATE 32562476064 No Longer Active Alina Castaneda MD PhD Active TERESE CONTOUR TEST STRP monitor blood sugars 3x/day GLUCOSE BLOOD 54456774981 No Longer Active Alina Castaneda MD PhD Active EQL TRUETEST TEST STRP Test blood sugar TID GLUCOSE BLOOD 31355523029 No Longer Active Alina Castaneda MD PhD Active FLUTICASONE PROPIONATE 50 MCG/ACT SUSP 2 sprays each nostril qDay x 30 days FLUTICASONE PROPIONATE 90815656292 No Longer Active Alina Castaneda MD PhD Active IBUPROFEN 200 MG TABS 1 Q 6 hr. PRN IBUPROFEN 33407837255 No Longer Active Alina Castaneda MD PhD Active NIACIN ER 500 MG CR-TABS 4 qHS (for triglycerides) NIACIN 56405710987 No Longer Active Alina Castaneda MD PhD Active ALFUZOSIN HCL ER 10 MG [id number] 1 tablet daily ALFUZOSIN HCL 75825503250 Active CRYSTAL Rodrigues Active SAPHRIS 5 MG SUBL by mouth twice a day ASENAPINE MALEATE 72565304088 No Longer Active Maljohn Ziglari COINING PRESS OPERATOR Active ACETAMINOPHEN 500 MG TABS 2 Q 6 hr. PRN ACETAMINOPHEN 65938631008 No Longer Active Maliheh Ziglari COINING PRESS OPERATOR Active ORPHENADRINE CITRATE ER 100 MG HN96S-NAC 1 every 12 hr. as needed ORPHENADRINE CITRATE 32675203368 No Longer Active Alina Castaneda MD PhD Active NIACIN CR 500 MG CR-TABS 2 qHS NIACIN 48182894057 No Longer Active Alina Castaneda MD PhD Active AMOXICILLIN 500 MG CAPS 2 po BID x 10 days AMOXICILLIN 68957979744 No Longer Active Alnia Castaneda MD PhD Active HYDROCODONE-ACETAMINOPHEN 7.5-325 MG TABS 1 four times a day as needed for pain HYDROCODONE-ACETAMINOPHEN 87302126559 No Longer Active Alina Castaneda MD PhD Active DOXEPIN HCL 10 MG CAPS Take 1 tablet by mouth daily DOXEPIN HCL 30650057153 No Longer Active Salina ROJAS Active NAVANE 10 MG CAPS 1/2 tablet twice a day THIOTHIXENE No Longer Active Salina ROBBINSA Active CYCLOBENZAPRINE HCL 10 MG TABS 1/2 tablet by mouth every 8 hours as needed for muscle spasms CYCLOBENZAPRINE HCL 68650149329 No Longer Active Alina Castaneda MD PhD Active BACTROBAN 2 % CREAM apply to ear and nose twice daily MUPIROCIN CALCIUM 71097692972 No Longer Active Alina Castaneda MD PhD Active HYDROCODONE-ACETAMINOPHEN 5-325 MG TABS take one tablet by mouth every four hours as needed for pain HYDROCODONE-ACETAMINOPHEN 33686356023 No Longer Active Alina Castaneda MD PhD Active ZYPREXA 5 MG TABS take one tablet by mouth every evening OLANZAPINE 07974574682 No Longer Active Alina Castaneda MD PhD Active ALBUTEROL SULFATE 0.083 % NEBU SOLN one vial per nebulizer TID and PRN cough/ soa ALBUTEROL SULFATE 21712218992 No Longer Active Alina Castaneda MD PhD Active GUAIFENESIN 600 MG [id number]-PJT 1 tablet by mouth twice daily if needed for cough GUAIFENESIN 51136271185 No Longer Active Marvel MARROQUIN Active AZITHROMYCIN 500 MG SOLR 1 po q day AZITHROMYCIN 40370631552 No Longer Active Alina Castaneda MD PhD Active PROMETHAZINE-CODEINE 6.25-10 MG/5ML SYRP 1 tsp po q 6 hours prn cough PROMETHAZINE-CODEINE 62846386468 No Longer Active Alina Castaneda MD PhD Active CEFDINIR 300 MG CAPS by mouth twice a day CEFDINIR 89950804756 No Longer Active Alina Castaneda MD PhD Active METFORMIN HCL 500 MG [id number]-KXR Take 3 tablets by mouth everyday METFORMIN HCL 63728539439 No Longer Active Alina Castaneda MD PhD Active LEVEMIR 100 UNIT/ML SOLN 90 units SQ qHS INSULIN DETEMIR 98622640803 No Longer Active Marvel MARROQUIN Active TOPROL XL 100 MG [id number]-NOO 1 @ HS METOPROLOL SUCCINATE 30838435880 No Longer Active Marvel MARROQUIN Active ALLOPURINOL 300 MG TABS Take one by mouth daily ALLOPURINOL 14072394025 Active Mima Erazo AMBULATORY TECHNOLOGIST Active ZYPREXA 10 MG TABS Take one by mouth daily OLANZAPINE 39177643969 No Longer Active Alina Castaneda MD PhD Active NOVOLOG 100 UNIT/ML SOLN 40 units with every meal INSULIN ASPART 64727062650 No Longer Active Alina Castaneda MD PhD Active VERAPAMIL HCL CR 120 MG TAB CR 1 qPM VERAPAMIL HCL 50579387958 No Longer Active Salina Han RMA Active ZYPREXA 15 MG TABS Take 1 tablet by mouth daily OLANZAPINE 48462076028 No Longer Active Marvel Charles COINING PRESS OPERATOR Active ALBUTEROL SULFATE (2.5 MG/3ML) 0.083% NEBU 1 neb tid and prn cough ALBUTEROL SULFATE 97956663928 No Longer Active Alina Castaneda MD PhD Active LANTUS 100 UNIT/ML SOLN 60 units sq q hs INSULIN GLARGINE 55560024817 No Longer Active CRYSTAL Suarez Active ALBUTEROL SULFATE (2.5 MG/3ML) 0.083% NEBU 1 neb tid and prn cough ALBUTEROL SULFATE (2.5 MG/3ML) 0.083% NEBU 644463 ALBUTEROL SULFATE Inactive ZYPREXA 15 MG TABS Take 1 tablet by mouth daily ZYPREXA 15 MG TABS 250959 OLANZAPINE Inactive VERAPAMIL HCL CR 120 MG TAB CR 1 qPM VERAPAMIL HCL CR 120 MG TAB CR VERAPAMIL HCL Inactive ZYPREXA 10 MG TABS Take one by mouth daily ZYPREXA 10 MG TABS 371857 OLANZAPINE Inactive TOPROL XL 100 MG [id number] 1 @ HS TOPROL XL 100 MG [id number] METOPROLOL SUCCINATE Inactive LEVEMIR 100 UNIT/ML SOLN 90 units SQ qHS LEVEMIR 100 UNIT/ML SOLN INSULIN DETEMIR Inactive PROMETHAZINE-CODEINE 6.25-10 MG/5ML SYRP 1 tsp po q 6 hours prn cough PROMETHAZINE-CODEINE 6.25-10 MG/5ML SYRP 627658 PROMETHAZINE- CODEINE Inactive GUAIFENESIN 600 MG [id number] 1 tablet by mouth twice daily if needed for cough GUAIFENESIN 600 MG [id number]-SNI GUAIFENESIN Inactive ALBUTEROL SULFATE 0.083 % NEBU SOLN one vial per nebulizer TID and PRN cough/ soa ALBUTEROL SULFATE 0.083 % NEBU SOLN 254930 ALBUTEROL SULFATE Inactive ZYPREXA 5 MG TABS take one tablet by mouth every evening ZYPREXA 5 MG TABS 734189 OLANZAPINE Inactive HYDROCODONE-ACETAMINOPHEN 5-325 MG TABS take one tablet by mouth every four hours as needed for pain HYDROCODONE-ACETAMINOPHEN 5-325 MG TABS 701348 HYDROCODONE-ACETAMINOPHEN Inactive BACTROBAN 2 % CREAM apply to ear and nose twice daily BACTROBAN 2 % CREAM 808222 MUPIROCIN CALCIUM Inactive CYCLOBENZAPRINE HCL 10 MG TABS 1/2 tablet by mouth every 8 hours as needed for muscle spasms CYCLOBENZAPRINE HCL 10 MG TABS 401348 CYCLOBENZAPRINE HCL Inactive NAVANE 10 MG CAPS 1/2 tablet twice a day NAVANE 10 MG CAPS THIOTHIXENE Inactive DOXEPIN HCL 10 MG CAPS Take 1 tablet by mouth daily DOXEPIN HCL 10 MG CAPS 8441520 DOXEPIN HCL Inactive HYDROCODONE-ACETAMINOPHEN 7.5-325 MG TABS 1 four times a day as needed for pain HYDROCODONE-ACETAMINOPHEN 7.5-325 MG TABS 098959 HYDROCODONE-ACETAMINOPHEN Inactive NIACIN CR 500 MG CR-TABS 2 qHS NIACIN CR 500 MG CR- TABS NIACIN Inactive ORPHENADRINE CITRATE ER 100 MG [id number] 1 every 12 hr. as needed ORPHENADRINE CITRATE ER 100 MG [id number] ORPHENADRINE CITRATE Inactive ACETAMINOPHEN 500 MG TABS 2 Q 6 hr. PRN ACETAMINOPHEN 500 MG TABS 014240 ACETAMINOPHEN Inactive SAPHRIS 5 MG SUBL by mouth twice a day SAPHRIS 5 MG SUBL ASENAPINE MALEATE Inactive NIACIN ER 500 MG CR-TABS 4 qHS (for triglycerides) NIACIN ER 500 MG CR-TABS NIACIN Inactive IBUPROFEN 200 MG TABS 1 Q 6 hr. PRN IBUPROFEN 200 MG TABS 440590 IBUPROFEN Inactive FLUTICASONE PROPIONATE 50 MCG/ACT SUSP 2 sprays each nostril qDay x 30 days FLUTICASONE PROPIONATE 50 MCG/ACT SUSP 407010 FLUTICASONE PROPIONATE Inactive EQL TRUETEST TEST STRP Test blood sugar TID EQL TRUETEST TEST STRP GLUCOSE BLOOD Inactive TERESE CONTOUR TEST STRP monitor blood sugars 3x/day TERESE CONTOUR TEST STRP GLUCOSE BLOOD Inactive DETROL LA 4 MG PH65N-MFN Take 1 tablet by mouth daily DETROL LA 4 MG HW35H-TMG TOLTERODINE TARTRATE Inactive ZYPREXA 7.5 MG TABS 1 at HS ZYPREXA 7.5 MG TABS 059852 OLANZAPINE Inactive THIOTHIXENE 5 MG CAPS by mouth twice a day THIOTHIXENE 5 MG CAPS 974116 THIOTHIXENE Inactive UROXATRAL 10 MG [id number]-FQF Take 1 tablet by mouth daily UROXATRAL 10 MG GV01T-DIB ALFUZOSIN HCL Inactive ACYCLOVIR 400 MG ORAL TABS 1 pill three times daily x 5 days, for cold sore outbreak ACYCLOVIR 400 MG ORAL TABS 987494 ACYCLOVIR Inactive TRUETEST TEST STRP check sugars 4x/day TRUETEST TEST STRP GLUCOSE BLOOD Inactive HUMALOG 100 UNIT/ML SOLN Take 20 units with breakfast, 10u with lunch and suppetr. HUMALOG 100 UNIT/ML SOLN INSULIN LISPRO ( HUMAN) Inactive CYCLOBENZAPRINE HCL 10 MG TABS 1 tablet by mouth three times daily, scheduled CYCLOBENZAPRINE HCL 10 MG TABS 812753 CYCLOBENZAPRINE HCL Inactive ACCU-CHEK ROSA INVITR STRP use strips with device to check blood sugars 3 times daily ACCU-CHEK ROSA INVITR STRP GLUCOSE BLOOD Inactive ACCU-CHEK ROSA UZMA Use device to check blood sugars ACCU-CHEK ROSA UZMA BLOOD GLUCOSE MONITORING SUPPL Inactive FLUVOXAMINE MALEATE 100 MG ORAL TABS Take 1/2 tab at noon FLUVOXAMINE MALEATE 100 MG ORAL TABS 825681 FLUVOXAMINE MALEATE Inactive FLUVOXAMINE MALEATE 100 MG TABS Take one (1) tablet by mouth am, 1/2 at noon FLUVOXAMINE MALEATE 100 MG TABS 575087 FLUVOXAMINE MALEATE Inactive BACTROBAN 2 % CREAM Apply to affected area BID for up to 10 days BACTROBAN 2 % CREAM 083562 MUPIROCIN CALCIUM Inactive NOVOFINE 32G X 6 MM MISC use one four times per day NOVOFINE 32G X 6 MM MISC INSULIN PEN NEEDLE Inactive TRAZODONE HCL 100 MG ORAL TABS 1 tab by mouth for sleep TRAZODONE HCL 100 MG ORAL TABS 445778 TRAZODONE HCL Inactive LOVAZA 1 GM CAPS 4 daily (for triglycerides) LOVAZA 1 GM CAPS 416489 [id number]-6-[id number] ETHYL ESTERS Inactive METFORMIN HCL ER 500 MG SC11T-PYV Take three tablets by mouth everyday METFORMIN HCL ER 500 MG QI24S-AHS METFORMIN HCL Inactive METOPROLOL SUCCINATE 100 MG WV44J-ZMG 1 by mouth daily for blood pressure METOPROLOL SUCCINATE 100 MG IY18X-JHM METOPROLOL SUCCINATE Inactive AMITIZA 24 MCG ORAL CAPS Take one capsule BID for constipation. AMITIZA 24 MCG ORAL CAPS LUBIPROSTONE Inactive TOLTERODINE TARTRATE 2 MG TABS 1 pill twice daily, for bladder TOLTERODINE TARTRATE 2 MG TABS 378763 TOLTERODINE TARTRATE Inactive COLACE 100 MG CAPS 1 pill by mouth twice daily, for constipation COLACE 100 MG CAPS 1855794 DOCUSATE SODIUM Inactive LOMOTIL 2.5-0.025 MG ORAL TABS take 1-2 tabs PO after each stool, no more than 8 in 24 hours LOMOTIL 2.5-0.025 MG ORAL TABS 3417989 DIPHENOXYLATE-ATROPINE Inactive ZOFRAN 4 MG TABS 1 po q4hr PRN Nausea ZOFRAN 4 MG TABS 997495 ONDANSETRON HCL Inactive HYDROCODONE-ACETAMINOPHEN 5-325 MG TABS 2 tabs by mouth three times daily for pain HYDROCODONE-ACETAMINOPHEN 5-325 MG TABS 417647 HYDROCODONE-ACETAMINOPHEN Inactive ZOLPIDEM TARTRATE 10 MG TABS take at bedtime ZOLPIDEM TARTRATE 10 MG TABS 835157 ZOLPIDEM TARTRATE Inactive LISINOPRIL 20 MG TABS 1 BID LISINOPRIL 20 MG TABS 980914 LISINOPRIL Inactive TRAVATAN Z 0.004 % SOLN 1 gtt each eye daily TRAVATAN Z 0.004 % SOLN TRAVOPROST Inactive CEFDINIR 300 MG CAPS by mouth twice a day CEFDINIR 300 MG CAPS 997409 CEFDINIR Inactive AZITHROMYCIN 500 MG SOLR 1 po q day AZITHROMYCIN 500 MG SOLR 17468502560 AZITHROMYCIN Inactive AMOXICILLIN 500 MG CAPS 2 po BID x 10 days AMOXICILLIN 500 MG CAPS 916184 AMOXICILLIN Inactive PENICILLIN V POTASSIUM 500 MG TABS 1 pill by mouth three times daily PENICILLIN V POTASSIUM 500 MG TABS 674381 PENICILLIN V POTASSIUM Inactive KEFLEX 500 MG CAP 1 po BID x 7 days KEFLEX 500 MG CAP 824808 CEPHALEXIN Inactive Immunizations Vaccine Administration Date Value [...] Fluvirin, Fluarix, Agriflu(>=18 yo)) Fluzone (>3 yrs.) [PRF043] Influenza, seasonal, injectable pneumococcal immunization administered Pneumovax [...] Panel - Chemistry sodium, serum 137 mmol/L 773-585 5180/10/12 potassium, serum 4.8 mmol/L 3.5-5.2 chloride, serum 102 mmol/L 98-107 carbon dioxide, venous blood 27.6 mmol/L 21.0-32.0 blood glucose 168 mg/dL 65-110 calcium, serum 9.0 mg/dL 8.5-10.1 urea nitrogen, blood 15 mg/dL 7-18 creatinine, serum 1.04 mg/dL 0.55-1.30 sodium, serum 138 mmol/L 114-708 2983/11/11 potassium, serum 4.7 mmol/L 3.5-5.2 chloride, serum [...] % 11.6-14.8 platelet count 252 10^3/MM^3 10*3/mm3 892-797 8132/10/12 leukocyte count, blood 5.8 10^3/MM^3 10*3/mm3 4.6-10.2 [...] Acid - Chemistry cholesterol, serum 187 mg/dL 255-810 2785/06/14 triglyceride, serum, fasting 246 mg/dL 30-200 HDL [...] negative Encounters Code Encounter Date Provider Facility [facility]-[id number] Level 3 Est. Patient 14:34:52 CDT Vanessa Hickey MD -[id number] Level 3 Est. Patient 16:27:51 CDT Mima Erazo [facility]-32380 Level 3 Est. Patient 14:39:00 PACK WORKER Vanessa Hickey MD -[id number] Level 2 Est. Patient 18:43:34 CDT Mima Erazo [facility] CPT-67390 Level 3 Est. Patient 16:22:09 CDT Cherelle Avila [facility] CPT-35835 Level 4 Est. Patient 17:55:14 CDT Mima Erazo [facility] CPT-04626 Level 2 Est. Patient 17:13:21 CDT Alina Castaneda MD [facility]-90753 Level 3 Est. Patient 14:46:15 CDT Vanessa Hickey MD -03327 Level 3 Est. Patient 09:34:56 CDT Alina Castaneda MD [facility]70073 Level 3 Est. Patient 21:40:19 CDT Mima Erazo [facility]-27484 Level 3 Est. Patient 09:26:40 CDT Marvel Charles [facility]-50112 Level 3 Est. Patient 12:36:43 CDT Vanessa Hickey MD -46051 Level 3 Est. Patient 12:57:49 CDT Vanessa Hickey MD -13983 Level 3 Est. Patient 00:28:25 CDT Alina Castaneda MD [facility]-69161 Level 2 Est. Patient 12:52:14 CDT Alina Castaneda MD [facility]-44244 Level 3 Est. Patient 11:51:18 PACK WORKER Alina Castaneda MD [facility]-69002 Level 3 Est. Patient 10:09:22 PACK WORKER Alina Castaneda MD [facility]64444 Level 3 Est. Patient 14:36:26 [facility]-50609 Level 3 Est. Patient 13:34:47 PACK WORKER Alina Castaneda MD [facility]-73714 Level 3 Est. Patient 19:52:08 PACK WORKER Alina Castaneda MD [facility]-59467 Level 3 Est. Patient 10:01:51 PACK WORKER Marvel [facility]-68187 Level 3 Est. Patient 21:54:06 CDT Vanessa Hickey MD -53429 Level 3 Est. Patient 08:54:46 CDT Alina Castaneda MD [facility]-31992 Level 3 Est. Patient 09:32:11 CDT Marvel [facility]-66026 Level 3 Est. Patient 12:02:49 CDT Alina Castaneda MD [facility]61238 Level 3 Est. Patient 19:17:33 CDT Alina Castaneda MD [facility]-66161 Level 3 Est. Patient 13:19:10 CDT Marvel [facility]-67025 Level 3 Est. Patient 08:20:05 CDT Alina Castaneda MD [facility]-81570 Level 3 Est. Patient 15:17:18 CDT Alina Castaneda MD [facility]-64656 Level 3 Est. Patient 14:25:36 PACK WORKER Marvel [facility]-90672 Level 3 Est. Patient 10:09:15 PACK WORKER Marvel [facility]-11289 Level 3 Est. Patient 21:28:43 CDT Alina Castaneda MD [facility]-63735 Level 3 Est. Patient 15:20:11 [facility] Level 4 Est. Patient 19:08:12 CDT Alina Castaneda MD [facility]-23917 Level 3 Est. Patient 15:06:39 CDT Marvel [facility]-01349 Level 4 Est. Patient 17:48:15 CDT Alina Castaneda MD [facility]-11768 Level 3 Est. Patient 14:53:49 CDT Alina Castaneda MD [facility]-48971 Level 3 Est. Patient 09:35:16 CDT Alina Castaneda MD [facility]-51411 Level 3 Est. Patient 12:23:22 CDT Alina Castaneda MD [facility]-74994 Level 3 Est. Patient 16:19:15 CDT Alina Castaneda MD [facility]75797 Level 3 Est. Patient 21:39:56 PACK WORKER Alina Castaneda MD [facility]-08194 Level 4 Est. Patient 14:12:56 PACK WORKER Alina Castaneda MD [facility]-98643 Level 2 Est. Patient 15:34:57 PACK WORKER Al[facility] [facility] [place]-[address] Level 3 Est. Patient 12:17:04 PACK WORKER Alina Castaneda MD [facility] [place]-39905 Level 3 Est. Patient 09:18:18 PACK WORKER [facility]-06529 Level 2 Est. Patient 21:50:24 CDT Alina Castaneda MD [facility] [place]-15865 Level 3 Est. Patient 09:17:28 [facility]T [facility]-69685 Level 4 Est. Patient 18:54:02 CDT Alina Castaneda MD [facility] [place]-17697 Level 3 Est. Patient 10:47:10 CDT Alina Castaneda MD [facility] [place]-44739 Level 3 Est. Patient 09:22:20 CDT [facility]-09205 Level 3 Est. Patient 16:39:43 CDT [facility]-37843 Level 3 Est. Patient 16:05:16 CDT Alina Castaneda MD [facility]35087 Level 3 Est. Patient 00:29:15 CDT Alina Castaneda MD [facility]43795 Level 3 Est. Patient 10:49:22 PACK WORKER [facility]-15874 Level 3 Est. Patient 21:30:19 PACK WORKER Alina Castaneda MD PhD [facility] CPT-63027 Level 4 Est. Patient 17:04:11 PACK WORKER [facility] CPT-19612 Level 3 Est. Patient 15:34:11 PACK WORKER [facility] CPT-96579 Level 2 Est. Patient 12:51:58 PACK WORKER Alina Castaneda MD PhD [facility] CPT-29114 Level 3 Est. Patient 13:20:01 PACK WORKER Alina Castaneda MD [facility] CPT-65410 Level 3 Est. Patient 09:23:35 CDT Alina Castaneda MD PhD [facility] Procedures Code Procedure Name Date Entry Date Standard Description CPT-TCM Transitional Care Mgmt-Moderate 10:25:31 CDT CPT-77499 Bladder Scan 14:34:53 CDT CPT-33126 Bladder Scan 14:39:01 PACK WORKER CPT-TCM Transitional Care Mgmt-Moderate 10:30:19 PACK WORKER CPT-10433 Bladder Scan 12:36:44 CDT CPT-84091 Bladder Scan 21:54:06 CDT CPT-G0008 Administration of Influenza Virus Vaccine 13:05:26 CDT CPT-63243 Fluzone Quadrivalent Intramuscular Suspension 0.5 ML 13: 05:26 CDT CPT-92700 Administration single or combination vaccine inc oral 11 :49:51 CDT CPT-08167 Pneumovax 11:49:51 CDT CPT-16392 Ribs unilateral 2V 12:37:22 PACK WORKER CPT-76466 Chest 2V Frontal and Lat 17:15:26 CDT CPT-31872 Abx/Therapy Injection 18:54:02 CDT CPT-J0696 Rocephin 1000 mg (Ceftriaxone) 16:00:32 CDT CPT-18306 Chest 2V Frontal and Lat 15:26:45 CDT CPT-53183 Chest 2V Frontal and Lat 10:23:27 CDT CPT-73542 Venipuncture Draw Fee 10:11:00 CDT CPT-13841 Administration single or combination vaccine inc oral 11 :56:38 CDT CPT-11816 Influenza split virus > age 3 11:56:38 CDT CPT-47145 Venipuncture Draw Fee 08:49:54 PACK WORKER CPT-35524 EKG Trac and Interp 17:54:19 PACK WORKER
--- OUTSIDE RECORDS SUMMARY | 2018-07-02 16:44 | XMS REPORT | Clinical Summary ---
Author Author Admin, TERELL Organization [facility] SCADA Access Address Unknown Phone Unavailable Allergies, Adverse Reactions, 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 Erazo PARAFFIN MACHINE OPERATOR Benign paroxysmal positional vertigo Vertigo, benign paroxysmal position 386.11 Inactive Mima Erazo PARAFFIN MACHINE OPERATOR Benign paroxysmal positional vertigo High-risk sexual behavior V69.2 Active Alina Castaneda MD PhD High-risk sexual behavior Erectile dysfunction 302.72 Active Alina Castaneda MD PhD Psychosexual dysfunction with inhibited sexual excitement Constipation 564.00 Active Alina Castaneda MD PhD Constipation, unspecified Skin lesion 709.9 Active Alina Castaneda MD PhD Unspecified disorder of skin and subcutaneous tissue Malaise and fatigue 780.79 Active Cheerlle Speaks PARAFFIN MACHINE OPERATOR Other malaise and fatigue Diarrhea 787.91 Active Cherelle Speaks PARAFFIN MACHINE OPERATOR Diarrhea PHARYNGITIS 462 Active Cherelle Speaks PARAFFIN MACHINE OPERATOR Acute pharyngitis Colitis 558.9 Active Mima Erazo PARAFFIN MACHINE OPERATOR Other and unspecified noninfectious gastroenteritis [...] SKIN LESION ICD-709.9 Roro Castaneda MD PhD DIABETES, TYPE 2 ICD-250.00 [...] atypical ICD-786.59 Inactive Alina Castaneda MD PhD SINUSITIS, ACUTE ICD-461.9 Inactive Alina Castaneda MD PhD Medication List Medication Instructions Start Date Stop Date Generic Name NDC Status Provider Patient Instruction EFFEXOR XR 37.5 MG ORAL [id number] Take one by mouth daily VENLAFAXINE HCL 46018223615 Active Mima Yokum PARAFFIN MACHINE OPERATOR Active TRAVATAN Z 0.004 % OPHTH SOLN 1 drop each eye daily TRAVOPROST 86301927694 Active Mima Yokum PARAFFIN MACHINE OPERATOR Active FLUVOXAMINE MALEATE 50 MG ORAL TABS 1 tab by mouth daily FLUVOXAMINE MALEATE 47056840742 No Longer Active Mima Jeffkum PARAFFIN MACHINE OPERATOR Active MORPHINE SULFATE ER 30 MG ORAL CR-TABS Take one capsule BID MORPHINE SULFATE 01510342078 Active Mima Yokum PARAFFIN MACHINE OPERATOR Active TRUEPLUS LANCETS 30G MISC 3x a day LANCETS 17726685779 Active Marvel Charles SECURITY PUBLIC SAFETY OFFICER Active TRUE METRIX METER W/DEVICE KIT Check blood sugars 3x/day BLOOD GLUCOSE MONITORING SUPPL 72194799372 Active Marvel Mackenzieglari SECURITY PUBLIC SAFETY OFFICER Active TRUE METRIX BLOOD GLUCOSE TEST INVITR STRP Check blood sugars 3x/day. GLUCOSE BLOOD 78035104588 Active Marvel Mackenzieglari SECURITY PUBLIC SAFETY OFFICER Active VITAMIN D 2000 UNIT ORAL CAPS Take one by mouth daily CHOLECALCIFEROL 66355322841 Active Mima Yokum PARAFFIN MACHINE OPERATOR Active LATUDA 60 MG ORAL TABS Take one by mouth daily LURASIDONE HCL 64085170078 No Longer Active Mima Yokum PARAFFIN MACHINE OPERATOR Active HUMALOG KWIKPEN 100 UNIT/ML SC SOPN sliding scale if needed INSULIN LISPRO (HUMAN) 03245104449 Active Mima Yokum PARAFFIN MACHINE OPERATOR Active TRAZODONE HCL 100 MG TABS 1 every night to prevent headaches TRAZODONE HCL 16096121570 Active Gabrielle Madl TUBE COREMAKER Active LATUDA 60 MG ORAL TABS 1 tab daily LURASIDONE HCL 95037545476 Active Gabrielle Madl TUBE COREMAKER Active CLONAZEPAM 1 MG TABS 1 pill by mouth three times daily CLONAZEPAM 71767470215 Active Gabrielle Madl TUBE COREMAKER Active [facility] MILK OF MAGNESIA 400 MG/5ML ORAL SUSP 30ml by mouth bid prn MAGNESIUM HYDROXIDE 80554477871 Active Mason Loredo MD Active TYLENOL 8 HOUR 650 MG ORAL CR-TABS 1 tab QID prn ACETAMINOPHEN 19166989483 Active Mason Loredo MD Active MYLANTA GAS RELIEF MAXIMUM STR 125 MG ORAL CAPS 30cc every 4 hours prn 12/01 SIMETHICONE 15966390839 Active Mason Loredo MD Active IMODIUM A-D 2 MG ORAL TABS 1 tab QID as needed LOPERAMIDE HCL 89342244201 Active Mason Loredo MD Active TRAVATAN Z 0.004 % SOLN 1 gtt each eye daily TRAVOPROST 43087170318 No Longer Active Mason Loredo MD Active LISINOPRIL 20 MG TABS 1 BID LISINOPRIL 84573995515 No Longer Active Mason Loredo MD Active LEVEMIR FLEXTOUCH 100 UNIT/ML SC SOPN 60 units SQ each evening, for diabetes INSULIN DETEMIR 81000306824 Active Mima Erazo APRN Active ZOLPIDEM TARTRATE 10 MG TABS take at bedtime ZOLPIDEM TARTRATE 35900582606 No Longer Active Mason Loredo MD Active HYDROCODONE-ACETAMINOPHEN 5-325 MG TABS 2 tabs by mouth three times daily for pain HYDROCODONE-ACETAMINOPHEN 37011631856 No Longer Active Mason Loredo MD Active ZOFRAN 4 MG TABS 1 po q4hr PRN Nausea ONDANSETRON HCL 10365928276 No Longer Active Mason Loredo MD Active LOMOTIL 2.5-0.025 MG ORAL TABS take 1-2 tabs PO after each stool, no more than 8 in 24 hours DIPHENOXYLATE-ATROPINE 97096891848 No Longer Active Mason Loredo MD Active COLACE 100 MG CAPS 1 pill by mouth twice daily, for constipation DOCUSATE SODIUM 74364873070 No Longer Active Mima Erazo APRN Active FLONASE ALLERGY RELIEF 50 MCG/ACT NASAL SUSP One spray each nostril BID x 1 week then daily FLUTICASONE PROPIONATE 99599874186 Active Mima Erazo APRN Active BD PEN NEEDLE MINI U/F 31G X 5 MM MISC 4 a day INSULIN PEN NEEDLE 96311169984 Active Marvel MARROQUIN Active AMITIZA 24 MCG ORAL CAPS Take one capsule BID for constipation LUBIPROSTONE 13479623554 Active Mima Erazo APRN Active TRUEPLUS LANCETS 30G MISC 3 a day LANCETS 97280204727 Active Marvel MARROQUIN Active TOLTERODINE TARTRATE 2 MG TABS 1 pill twice daily, for bladder TOLTERODINE TARTRATE 02504554220 No Longer Active Vanessa Hickey MD Active AMITIZA 24 MCG ORAL CAPS Take one capsule BID for constipation. LUBIPROSTONE 50488065992 No Longer Active Vanessa Hickey MD Active FLUVOXAMINE MALEATE 100 MG ORAL TABS take one tab every AM et HS, and take 1/ 2 tab at noon FLUVOXAMINE MALEATE 81865562516 Active Grace Azam RMA Active METOPROLOL SUCCINATE 100 MG [id number] 1 by mouth daily for blood pressure METOPROLOL SUCCINATE 04170580941 No Longer Active Grace Azam RMA Active METFORMIN HCL ER 500 MG NH39I-SKB Take three tablets by mouth everyday METFORMIN HCL 75117274863 No Longer Active Grace Azam RMA Active LOVAZA 1 GM CAPS 4 daily (for triglycerides) OMEGA-3- ACID ETHYL ESTERS 89097570898 No Longer Active Grace Azam RMA Active TRAZODONE HCL 100 MG ORAL TABS 1 tab by mouth for sleep TRAZODONE HCL 79778512294 No Longer Active Grace Azam RMA Active NOVOFINE 32G X 6 MM MISC use one four times per day INSULIN PEN NEEDLE 19763432731 No Longer Active Grace Azam RMA Active BACTROBAN 2 % CREAM Apply to affected area BID for up to 10 days MUPIROCIN CALCIUM 28349287106 No Longer Active Grace Azam RMA Active KEFLEX 500 MG CAP 1 po BID x 7 days CEPHALEXIN 10631661551 No Longer Active Cherelle Avila APRN Active FLUVOXAMINE MALEATE 100 MG TABS Take one (1) tablet by mouth am, 1/2 at noon FLUVOXAMINE MALEATE 91081039215 No Longer Active Mimacecily Erazo PARAFFIN MACHINE OPERATOR Active CORICIDIN HBP CONGESTION/COUGH 10-200 MG ORAL CAPS Take as directed on box as needed for cold/flu symptoms DEXTROMETHORPHAN-GUAIFENESIN 01828085523 Active Cherelle Speaks PARAFFIN MACHINE OPERATOR Active OMEGA-3 300 MG ORAL CAPS 4 caps by mouth daily OMEGA-3 FATTY ACIDS 76178902342 Active Mima Yokum PARAFFIN MACHINE OPERATOR Active FLUVOXAMINE MALEATE 100 MG ORAL TABS Take 1/2 tab at noon FLUVOXAMINE MALEATE 10342026385 No Longer Active Cherelle Avila APRN Active [facility] LUBRICANT EYE DROPS 0.4-0.3 % OPHTH SOLN POLYETHYL GLYCOL-PROPYL GLYCOL 49502339517 Active Mima Erazo APRN Active MIRALAX POWD 17g by mouth daily, for constipation POLYETHYLENE GLYCOL 3350 94220867684 Active Mima Erazo APRN Active TRUETEST TEST STRP check blood sugars 3x/day GLUCOSE BLOOD 64746324717 Active Maliheh Ziglari SECURITY PUBLIC SAFETY OFFICER Active ACCU-CHEK ROSA UZMA Use device to check blood sugars BLOOD GLUCOSE MONITORING SUPPL 35086956520 No Longer Active Maliheh Ziglari SECURITY PUBLIC SAFETY OFFICER Active ACCU-CHEK ROSA INVITR STRP use strips with device to check blood sugars 3 times daily GLUCOSE BLOOD 74650401743 No Longer Active Mallashondaeh Ziglari SECURITY PUBLIC SAFETY OFFICER Active VERAPAMIL HCL ER 180 MG ORAL CR-TABS 1 pill by mouth twice daily, for migraine prevention VERAPAMIL HCL 21778362316 Active Mima Erazo APRN Active CYCLOBENZAPRINE HCL 10 MG TABS 1 tablet by mouth three times daily, scheduled CYCLOBENZAPRINE HCL 32144342471 No Longer Active Alina Castaneda MD PhD Active HUMALOG 100 UNIT/ML SOLN Take 20 units with breakfast, 10u with lunch and suppetr. INSULIN LISPRO (HUMAN) 38966439632 No Longer Active Alina Castaneda MD PhD Active TRUETEST TEST STRP check sugars 4x/day GLUCOSE BLOOD 15520729057 No Longer Active Alina Castaneda MD PhD Active MORPHINE SULFATE 30 MG TABS 1 pill by mouth twice daily, for pain MORPHINE SULFATE 55390841550 No Longer Active Mason Loredo MD Active ACYCLOVIR 400 MG ORAL TABS 1 pill three times daily x 5 days, for cold sore outbreak ACYCLOVIR 50258648329 No Longer Active Alina Castaneda MD PhD Active PENICILLIN V POTASSIUM 500 MG TABS 1 pill by mouth three times daily PENICILLIN V POTASSIUM 77185037215 No Longer Active Alina Castaneda MD PhD Active UROXATRAL 10 MG [id number]-RHT Take 1 tablet by mouth daily ALFUZOSIN HCL 02391662753 No Longer Active Alina Castaneda MD PhD Active THIOTHIXENE 5 MG CAPS by mouth twice a day THIOTHIXENE 29760965861 No Longer Active Alina Castaneda MD PhD Active ZYPREXA 7.5 MG TABS 1 at HS OLANZAPINE 83330611195 No Longer Active Alina Castaneda MD PhD Active BD INSULIN SYRINGE 28G X 1/2" 1 ML MISC 1 four times per day INSULIN SYRINGE-NEEDLE U-100 85256242581 Active Marvel Charles [facility] Active DETROL LA 4 MG [id number]-UIS Take 1 tablet by mouth daily TOLTERODINE TARTRATE 10530759918 No Longer Active Alina Castaneda MD PhD Active TERESE CONTOUR TEST STRP monitor blood sugars 3x/day GLUCOSE BLOOD 91772153133 No Longer Active Alina Castaneda MD PhD Active EQL TRUETEST TEST STRP Test blood sugar TID GLUCOSE BLOOD 89469696380 No Longer Active Alina Castaneda MD PhD Active FLUTICASONE PROPIONATE 50 MCG/ACT SUSP 2 sprays each nostril qDay x 30 days FLUTICASONE PROPIONATE 80953641183 No Longer Active Alina Castaneda MD PhD Active IBUPROFEN 200 MG TABS 1 Q 6 hr. PRN IBUPROFEN 17312285185 No Longer Active Alina Castaneda MD PhD Active NIACIN ER 500 MG CR-TABS 4 qHS (for triglycerides) NIACIN 86272996714 No Longer Active Alina Castaneda MD PhD Active ALFUZOSIN HCL ER 10 MG [id number] 1 tablet daily ALFUZOSIN HCL 15856343451 Active Mima Erazo PARAFFIN MACHINE OPERATOR Active SAPHRIS 5 MG SUBL by mouth twice a day ASENAPINE MALEATE 72530789360 No Longer Active Marvel Thurstonari SECURITY PUBLIC SAFETY OFFICER Active ACETAMINOPHEN 500 MG TABS 2 Q 6 hr. PRN ACETAMINOPHEN 20133226978 No Longer Active Mallashondaeh Ziglari SECURITY PUBLIC SAFETY OFFICER Active ORPHENADRINE CITRATE ER 100 MG [id number]-JNT 1 every 12 hr. as needed ORPHENADRINE CITRATE 57181553852 No Longer Active Alina Castaneda MD PhD Active NIACIN CR 500 MG CR-TABS 2 qHS NIACIN 51704882231 No Longer Active Alina Castaneda MD PhD Active AMOXICILLIN 500 MG CAPS 2 po BID x 10 days AMOXICILLIN 56793252732 No Longer Active Alina Castaneda MD PhD Active HYDROCODONE-ACETAMINOPHEN 7.5-325 MG TABS 1 four times a day as needed for pain HYDROCODONE-ACETAMINOPHEN 81443947783 No Longer Active Alina Castaneda MD PhD Active DOXEPIN HCL 10 MG CAPS Take 1 tablet by mouth daily DOXEPIN HCL 40471284236 No Longer Active Salina Han [facility] Active NAVANE 10 MG CAPS 1/2 tablet twice a day THIOTHIXENE No Longer Active Salina Han [facility] Active CYCLOBENZAPRINE HCL 10 MG TABS 1/2 tablet by mouth every 8 hours as needed for muscle spasms CYCLOBENZAPRINE HCL 05145215387 No Longer Active Alina Castaneda MD PhD Active BACTROBAN 2 % CREAM apply to ear and nose twice daily MUPIROCIN CALCIUM 89284172776 No Longer Active Alina Castaneda MD PhD Active HYDROCODONE-ACETAMINOPHEN 5-325 MG TABS take one tablet by mouth every four hours as needed for pain HYDROCODONE-ACETAMINOPHEN 92471134283 No Longer Active Alina Castaneda MD PhD Active ZYPREXA 5 MG TABS take one tablet by mouth every evening OLANZAPINE 32647168712 No Longer Active Alina Castaneda MD PhD Active ALBUTEROL SULFATE 0.083 % NEBU SOLN one vial per nebulizer TID and PRN cough/ soa ALBUTEROL SULFATE 96173193259 No Longer Active Alina Castaneda MD PhD Active GUAIFENESIN 600 MG [id number]-[id number] 1 tablet by mouth twice daily if needed for cough GUAIFENESIN 60548617853 No Longer Active Marvel MARROQUIN Active AZITHROMYCIN 500 MG SOLR 1 po q day AZITHROMYCIN 95508164120 No Longer Active Alina Castaneda MD PhD Active PROMETHAZINE-CODEINE 6.25-10 MG/5ML SYRP 1 tsp po q 6 hours prn cough PROMETHAZINE-CODEINE 59828984405 No Longer Active Alina Castaneda MD PhD Active CEFDINIR 300 MG CAPS by mouth twice a day CEFDINIR 78969779453 No Longer Active Alina Castaneda MD PhD Active METFORMIN HCL 500 MG [id number] Take 3 tablets by mouth everyday METFORMIN HCL 26008874907 No Longer Active Alina Castaneda MD PhD Active LEVEMIR 100 UNIT/ML SOLN 90 units SQ qHS INSULIN DETEMIR 97041919448 No Longer Active Marvel MARROQUIN Active TOPROL XL 100 MG [id number] 1 @ HS METOPROLOL SUCCINATE 23049890776 No Longer Active Marvel MARROQUIN Active ALLOPURINOL 300 MG TABS Take one by mouth daily ALLOPURINOL 56920153945 Active Mima Yokum PARAFFIN MACHINE OPERATOR Active ZYPREXA 10 MG TABS Take one by mouth daily OLANZAPINE 18203599620 No Longer Active Alina Castaneda MD PhD Active NOVOLOG 100 UNIT/ML SOLN 40 units with every meal INSULIN ASPART 84444668450 No Longer Active Alina Castaneda MD PhD Active VERAPAMIL HCL CR 120 MG TAB CR 1 qPM VERAPAMIL HCL 09268405292 No Longer Active Salina Han RMA Active ZYPREXA 15 MG TABS Take 1 tablet by mouth daily OLANZAPINE 46014870724 No Longer Active Marvel Thurstonestela MARROQUIN Active ALBUTEROL SULFATE (2.5 MG/3ML) 0.083% NEBU 1 neb tid and prn cough ALBUTEROL SULFATE 03304665710 No Longer Active Alina Castaneda MD PhD Active LANTUS 100 UNIT/ML SOLN 60 units sq q hs INSULIN GLARGINE 00389260475 No Longer Active CRYTSAL Suarez Active ACETAMINOPHEN 500 MG TABS 2 Q 6 hr. PRN ACETAMINOPHEN 500 MG TABS 082931 ACETAMINOPHEN Inactive ALBUTEROL SULFATE 0.083 % NEBU SOLN one vial per nebulizer TID and PRN cough/ soa ALBUTEROL SULFATE 0.083 % NEBU SOLN 692281 ALBUTEROL SULFATE Inactive ALBUTEROL SULFATE (2.5 MG/3ML) 0.083% NEBU 1 neb tid and prn cough ALBUTEROL SULFATE (2.5 MG/3ML) 0.083% NEBU 116789 ALBUTEROL SULFATE Inactive AMOXICILLIN 500 MG CAPS 2 po BID x 10 days AMOXICILLIN 500 MG CAPS 107425 AMOXICILLIN Inactive COLACE 100 MG CAPS 1 pill by mouth twice daily, for constipation COLACE 100 MG CAPS 8570366 DOCUSATE SODIUM Inactive CYCLOBENZAPRINE HCL 10 MG TABS 1/2 tablet by mouth every 8 hours as needed for muscle spasms CYCLOBENZAPRINE HCL 10 MG TABS 949471 CYCLOBENZAPRINE HCL Inactive CYCLOBENZAPRINE HCL 10 MG TABS 1 tablet by mouth three times daily, scheduled CYCLOBENZAPRINE HCL 10 MG TABS 287865 CYCLOBENZAPRINE HCL Inactive DOXEPIN HCL 10 MG CAPS Take 1 tablet by mouth daily DOXEPIN HCL 10 MG CAPS 4327066 DOXEPIN HCL Inactive IBUPROFEN 200 MG TABS 1 Q 6 hr. PRN IBUPROFEN 200 MG TABS 785982 IBUPROFEN Inactive KEFLEX 500 MG CAP 1 po BID x 7 days KEFLEX 500 MG CAP 780305 CEPHALEXIN Inactive LISINOPRIL 20 MG TABS 1 BID LISINOPRIL 20 MG TABS 479187 LISINOPRIL Inactive LOMOTIL 2.5-0.025 MG ORAL TABS take 1-2 tabs PO after each stool, no more than 8 in 24 hours LOMOTIL 2.5-0.025 MG ORAL TABS 5688095 DIPHENOXYLATE-ATROPINE Inactive NAVANE 10 MG CAPS 1/2 tablet twice a day NAVANE 10 MG CAPS THIOTHIXENE Inactive NIACIN CR 500 MG CR-TABS 2 qHS NIACIN CR 500 MG CR- TABS NIACIN Inactive NIACIN ER 500 MG CR-TABS 4 qHS (for triglycerides) NIACIN ER 500 MG CR-TABS NIACIN Inactive PENICILLIN V POTASSIUM 500 MG TABS 1 pill by mouth three times daily PENICILLIN V POTASSIUM 500 MG TABS 132420 PENICILLIN V POTASSIUM Inactive PROMETHAZINE-CODEINE 6.25-10 MG/5ML SYRP 1 tsp po q 6 hours prn cough PROMETHAZINE-CODEINE 6.25-10 MG/5ML SYRP 470851 PROMETHAZINE- CODEINE Inactive THIOTHIXENE 5 MG CAPS by mouth twice a day THIOTHIXENE 5 MG CAPS 660699 THIOTHIXENE Inactive TRAZODONE HCL 100 MG ORAL TABS 1 tab by mouth for sleep TRAZODONE HCL 100 MG ORAL TABS 776819 TRAZODONE HCL Inactive ZOFRAN 4 MG TABS 1 po q4hr PRN Nausea ZOFRAN 4 MG TABS 836353 ONDANSETRON HCL Inactive ACYCLOVIR 400 MG ORAL TABS 1 pill three times daily x 5 days, for cold sore outbreak ACYCLOVIR 400 MG ORAL TABS 413314 ACYCLOVIR Inactive FLUVOXAMINE MALEATE 100 MG ORAL TABS Take 1/2 tab at noon FLUVOXAMINE MALEATE 100 MG ORAL TABS 037742 FLUVOXAMINE MALEATE Inactive FLUVOXAMINE MALEATE 100 MG TABS Take one (1) tablet by mouth am, 1/2 at noon FLUVOXAMINE MALEATE 100 MG TABS 163464 FLUVOXAMINE MALEATE Inactive FLUVOXAMINE MALEATE 50 MG ORAL TABS 1 tab by mouth daily FLUVOXAMINE MALEATE 50 MG ORAL TABS 282900 FLUVOXAMINE MALEATE Inactive ZOLPIDEM TARTRATE 10 MG TABS take at bedtime ZOLPIDEM TARTRATE 10 MG TABS 589178 ZOLPIDEM TARTRATE Inactive VERAPAMIL HCL CR 120 MG TAB CR 1 qPM VERAPAMIL HCL CR 120 MG TAB CR VERAPAMIL HCL Inactive HUMALOG 100 UNIT/ML SOLN Take 20 units with breakfast, 10u with lunch and suppetr. HUMALOG 100 UNIT/ML SOLN INSULIN LISPRO ( HUMAN) Inactive ZYPREXA 5 MG TABS take one tablet by mouth every evening ZYPREXA 5 MG TABS 424898 OLANZAPINE Inactive ZYPREXA 7.5 MG TABS 1 at HS ZYPREXA 7.5 MG TABS 772903 OLANZAPINE Inactive ZYPREXA 10 MG TABS Take one by mouth daily ZYPREXA 10 MG TABS 552908 OLANZAPINE Inactive AZITHROMYCIN 500 MG SOLR 1 po q day AZITHROMYCIN 500 MG SOLR 62194083795 AZITHROMYCIN Inactive BACTROBAN 2 % CREAM Apply to affected area BID for up to 10 days BACTROBAN 2 % CREAM 831392 MUPIROCIN CALCIUM Inactive BACTROBAN 2 % CREAM apply to ear and nose twice daily BACTROBAN 2 % CREAM 338258 MUPIROCIN CALCIUM Inactive CEFDINIR 300 MG CAPS by mouth twice a day CEFDINIR 300 MG CAPS 178346 CEFDINIR Inactive TOLTERODINE TARTRATE 2 MG TABS 1 pill twice daily, for bladder TOLTERODINE TARTRATE 2 MG TABS 419534 TOLTERODINE TARTRATE Inactive ZYPREXA 15 MG TABS Take 1 tablet by mouth daily ZYPREXA 15 MG TABS 443553 OLANZAPINE Inactive METFORMIN HCL ER 500 MG QA87I-UKS Take three tablets by mouth everyday METFORMIN HCL ER 500 MG [id number]-AMF METFORMIN HCL Inactive DETROL LA 4 MG CH44P-GNG Take 1 tablet by mouth daily DETROL LA 4 MG TI52X-HEY TOLTERODINE TARTRATE Inactive METOPROLOL SUCCINATE 100 MG ZO82W-HAD 1 by mouth daily for blood pressure METOPROLOL SUCCINATE 100 MG NU39L-VWW METOPROLOL SUCCINATE Inactive TOPROL XL 100 MG BX68Y-QNP 1 @ HS TOPROL XL 100 MG QZ84E-TCR METOPROLOL SUCCINATE Inactive HYDROCODONE-ACETAMINOPHEN 5-325 MG TABS take one tablet by mouth every four hours as needed for pain HYDROCODONE-ACETAMINOPHEN 5-325 MG TABS 371179 HYDROCODONE-ACETAMINOPHEN Inactive HYDROCODONE-ACETAMINOPHEN 5-325 MG TABS 2 tabs by mouth three times daily for pain HYDROCODONE-ACETAMINOPHEN 5-325 MG TABS 991212 HYDROCODONE-ACETAMINOPHEN Inactive HYDROCODONE-ACETAMINOPHEN 7.5-325 MG TABS 1 four times a day as needed for pain HYDROCODONE-ACETAMINOPHEN 7.5-325 MG TABS 228273 HYDROCODONE-ACETAMINOPHEN Inactive GUAIFENESIN 600 MG ZL80G-LVK 1 tablet by mouth twice daily if needed for cough GUAIFENESIN 600 MG QH68X-AZC GUAIFENESIN Inactive ORPHENADRINE CITRATE ER 100 MG GD92V-EZI 1 every 12 hr. as needed ORPHENADRINE CITRATE ER 100 MG AX66F-XAJ ORPHENADRINE CITRATE Inactive UROXATRAL 10 MG CA93B-FOK Take 1 tablet by mouth daily UROXATRAL 10 MG OX87R-DSG ALFUZOSIN HCL Inactive ACCU-CHEK ROSA INVITR STRP use strips with device to check blood sugars 3 times daily ACCU-CHEK ROSA INVITR STRP GLUCOSE BLOOD Inactive LEVEMIR 100 UNIT/ML SOLN 90 units SQ qHS LEVEMIR 100 UNIT/ML SOLN INSULIN DETEMIR Inactive FLUTICASONE PROPIONATE 50 MCG/ACT SUSP 2 sprays each nostril qDay x 30 days FLUTICASONE PROPIONATE 50 MCG/ACT SUSP 2109609 FLUTICASONE PROPIONATE Inactive AMITIZA 24 MCG ORAL CAPS Take one capsule BID for constipation. AMITIZA 24 MCG ORAL CAPS LUBIPROSTONE Inactive ACCU-CHEK ROSA UZMA Use device to check blood sugars ACCU-CHEK ROSA UZMA BLOOD GLUCOSE MONITORING SUPPL Inactive TRAVATAN Z 0.004 % SOLN 1 gtt each eye daily TRAVATAN Z 0.004 % SOLN TRAVOPROST Inactive LOVAZA 1 GM CAPS 4 daily (for triglycerides) LOVAZA 1 GM CAPS 341970 [id number] ETHYL ESTERS Inactive NOVOFINE 32G X 6 MM MISC use one four times per day NOVOFINE 32G X 6 MM MISC INSULIN PEN NEEDLE Inactive TRUETEST TEST STRP check sugars 4x/day TRUETEST TEST STRP GLUCOSE BLOOD Inactive TERESE CONTOUR TEST STRP monitor blood sugars 3x/day TERESE CONTOUR TEST STRP GLUCOSE BLOOD Inactive SAPHRIS 5 MG SUBL by mouth twice a day SAPHRIS 5 MG SUBL ASENAPINE MALEATE Inactive EQL TRUETEST TEST STRP Test blood sugar TID EQL TRUETEST TEST STRP GLUCOSE BLOOD Inactive LATUDA 60 MG ORAL TABS Take one by mouth daily LATUDA 60 MG ORAL TABS LURASIDONE HCL Inactive Immunizations Vaccine Administration Date Value Standard [...] Fluvirin, Fluarix, Agriflu(>=18 yo)) Fluzone (>3 yrs.) [[id number]] Influenza, seasonal, injectable pneumococcal immunization administered Pneumovax [...] HGBA1C - Chemistry sodium, serum 140 mmol/L 878-512 2942/11/09 potassium, serum 4.0 mmol/L 3.5-5.2 chloride, serum [...] Acid - Chemistry cholesterol, serum 187 mg/dL 337-354 3356/06/14 triglyceride, serum, fasting 246 mg/dL 30-200 HDL [...] negative Encounters Code Encounter Date Provider Facility CPT-72292 Level 3 Est. Patient 09:12:14 [employer] Mima Erazo [facility][note 3] CPT-20506 Level 3 Est. Patient 16:52:51 CDT Vanessa Hickey MD [facility] CPT-55888 Level 3 Est. Patient 17:40:16 CDT Mima Erazo [facility][note 3] CPT-44886 Level 3 Est. Patient 14:34:52 CDT Vanessa Hickey MD [facility] CPT-09856 Level 3 Est. Patient 16:27:51 CDT Mima Erazo [facility] CPT-54770 Level 3 Est. Patient 14:39:00 [employer]WORK[employer] [facility] Level 2 Est. Patient 18:43:34 CDT Mima Erazo [facility] CPT-18363 Level 3 Est. Patient 16:22:09 CDT Cherelle Avila [facility] CPT-54154 Level 4 Est. Patient 17:55:14 CDT Mima Erazo [facility] CPT-48285 Level 2 Est. Patient 17:13:21 CDT Alina Castaneda MD [facility]-11189 Level 3 Est. Patient 14:46:15 CDT Vanessa Hickey MD [facility]-58758 Level 3 Est. Patient 09:34:56 CDT Alina Castaneda MD [facility]10485 Level 3 Est. Patient 21:40:19 CDT Mima Erazo [facility] CPT-77872 Level 3 Est. Patient 09:26:40 CDT Marvel Charles [facility]-22196 Level 3 Est. Patient 12:36:43 CDT Vanessa Hickey MD [facility]-78366 Level 3 Est. Patient 12:57:49 CDT Vanessa Hickey MD [facility]-35087 Level 3 Est. Patient 00:28:25 CDT Alina Castaneda MD [facility]-40139 Level 2 Est. Patient 12:52:14 CDT Alina Castaneda MD [facility]-24151 Level 3 Est. Patient 11:51:18 [employer] Alina Castaneda MD [facility]14884 Level 3 Est. 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 Patient 14:36:26 [employer]WORK[employer] Marvel Charles [facility]-85089 Level 3 Est. Patient 13:34:47 [employer]ARMWORK[employer] Alina Castaneda MD [facility]-05468 Level 3 Est. Patient 19:52:08 [employer]WORK[employer] Alina Castaneda MD [facility]99789 Level 3 Est. Patient 10:01:51 [employer] Marvel Araceli [facility]-88129 Level 3 Est. Patient 21:54:06 CDT Vanessa Hickey MD [facility]-94994 Level 3 Est. Patient 08:54:46 CDT Alina Castaneda MD [facility]45425 Level 3 Est. Patient 09:32:11 [facility]-24492 Level 3 Est. Patient 12:02:49 CDT Alina Castaneda MD [facility]-35860 Level 3 Est. Patient 19:17:33 CDT Alina Castaneda MD [facility]-72350 Level 3 Est. Patient 13:19:10 CDT Marvel Charles [facility]-95254 Level 3 Est. Patient 08:20:05 CDT Alina Castaneda MD [facility]-15664 Level 3 Est. Patient 15:17:18 CDT Alina Castaneda MD [facility]-73555 Level 3 Est. Patient 14:25:36 [employer] Araceli [facility]-09089 Level 3 Est. Patient 10:09:15 [employer] Marvel Charles [facility]-87882 Level 3 Est. Patient 21:28:43 CDT Alina Castaneda MD [facility]62714 Level 3 Est. Patient 15:20:11 CDT Marvel Charles [facility] CPT-85516 Level 4 Est. Patient 19:08:12 CDT Alina Castaneda MD [facility]-20541 Level 3 Est. Patient 15:06:39 CDT Marvel Charles [facility]-73658 Level 4 Est. Patient 17:48:15 CDT Alina Castaneda MD [facility]-49443 Level 3 Est. Patient 14:53:49 CDT Alina Castaneda MD [facility]-90340 Level 3 Est. Patient 09:35:16 CDT Alina Castaneda MD [facility]-83081 Level 3 Est. Patient 12:23:22 CDT Alina Castaneda MD [facility]-52562 Level 3 Est. Patient 16:19:15 CDT Alina Castaneda MD [facility]-09120 Level 3 Est. Patient 21:39:56 [employer] Alina Castaneda MD [facility] CPT-79330 Level 4 Est. Patient 14:12:56 [employer] Alina Castaneda MD [facility]-03770 Level 2 Est. Patient 15:34:57 [employer] Alina Castaneda MD [facility] CPT-67750 Level 3 Est. Patient 12:17:04 [employer] Alina Castaneda MD [facility]-99969 Level 3 Est. Patient 09:18:18 [employer] Marvel Charles [facility] CPT-43600 Level 2 Est. Patient 21:50:24 CDT Alina Castaneda MD [facility]-52084 Level 3 Est. Patient 09:17:28 CDT Marvel Charles [facility]-76182 Level 4 Est. Patient 18:54:02 CDT Alina Castaneda MD [facility]61434 Level 3 Est. Patient 10:47:10 CDT Alina Castaneda MD [facility]73464 Level 3 Est. Patient 09:22:20 CDT Marvel Araceli [facility]-51903 Level 3 Est. Patient 16:39:43 CDT Marvel Araceli [facility]-87802 Level 3 Est. Patient 16:05:16 CDT Alina Castaneda MD [facility]79579 Level 3 Est. Patient 00:29:15 CDT Alina Castaneda MD [facility]79732 Level 3 Est. Patient 10:49:22 [employer] Araceli [facility]-08748 Level 3 Est. Patient 21:30:19 [employer] Alina Castaneda MD [facility]-06280 Level 4 Est. Patient 17:04:11 [employer] Araceli [facility]-89597 Level 3 Est. Patient 15:34:11 [employer] Araceli [facility]-87514 Level 2 Est. Patient 12:51:58 [employer] Alina Castaneda MD [facility]63026 Level 3 Est. Patient 13:20:01 [employer] Alina Castaneda MD [facility]98110 Level 3 Est. Patient 09:23:35 CDT Alina Castaneda MD PhD [facility] Procedures Code Procedure Name Date Entry Date Standard Description CPT-00834 HGBA1C - LAB USE ONLY 09:30:27 [employer] CPT-79124 BMP - LAB USE ONLY 09:30:27 [employer] CPT-25052 Venipuncture Draw Fee 09:30:26 [employer] CPT-TCMM Transitional Care Mgmt-Moderate 10:25:31 CDT CPT-96364 Bladder Scan 14:34:53 CDT CPT-16214 Bladder Scan 14:39:01 [employer] CPT-TCMM Transitional Care Mgmt-Moderate 10:30:19 [employer] CPT-32669 Bladder Scan 12:36:44 CDT CPT-65524 Bladder Scan 21:54:06 CDT CPT-G0008 Administration of Influenza Virus Vaccine 13:05:26 CDT CPT-40563 Fluzone Quadrivalent Intramuscular Suspension 0.5 ML 13: 05:26 CDT CPT-75194 Administration single or combination vaccine inc oral 11 :49:51 CDT CPT-22588 Pneumovax 11:49:51 CDT CPT-21874 Ribs unilateral 2V 12:37:22 [employer] CPT-54610 Chest 2V Frontal and Lat 17:15:26 CDT CPT-79853 Abx/Therapy Injection 18:54:02 CDT CPT-J0696 Rocephin 1000 mg (Ceftriaxone) 16:00:32 CDT CPT-99592 Chest 2V Frontal and Lat 15:26:45 CDT CPT-01258 Chest 2V Frontal and Lat 10:23:27 CDT CPT-16103 Venipuncture Draw Fee 10:11:00 CDT CPT-62875 Administration single or combination vaccine inc oral 11 :56:38 CDT CPT-29275 Influenza split virus > age 3 11:56:38 CDT CPT-79060 Venipuncture Draw Fee 08:49:54 [employer] CPT-97008 EKG Trac and Interp 17:54:19 [employer]
--- OUTSIDE RECORDS SUMMARY | 2018-07-02 16:46 | XMS REPORT | Clinical Summary ---
[...] positional vertigo 386.11 Active Mima Erazo RN WOUND CARE Benign paroxysmal positional vertigo Vertigo, benign paroxysmal position 386.11 Inactive Mima Erazo RN WOUND CARE Benign paroxysmal positional vertigo High-risk sexual behavior V69.2 Active Alina Castaneda MD PhD High-risk sexual behavior Erectile dysfunction 302.72 Active Alina Castaneda MD PhD Psychosexual dysfunction with inhibited sexual excitement Constipation 564.00 Active Alina Castaneda MD PhD Constipation, unspecified Skin lesion 709.9 Active Alnia Castaneda MD PhD Unspecified disorder of skin and subcutaneous tissue Malaise and fatigue 780.79 Active Cherelle Speaks RN WOUND CARE Other malaise and fatigue Diarrhea 787.91 Active Cherelle Speaks RN WOUND CARE Diarrhea PHARYNGITIS 462 Active Cherelle Speaks RN WOUND CARE Acute pharyngitis Colitis 558.9 Active Mima Erazo RN WOUND CARE Other and unspecified noninfectious gastroenteritis and colitis WOUND, OPEN, NOSE ICD-873.20 Inactive Alina Castaneda MD PhD DIABETES, TYPE 2 ICD-250.00 Inactive Alina Castaneda MD PhD HYPERTENSION ICD-401.9 Inactive Alina Castaneda MD PhD URI ICD-465.9 Inactive Alina Castaneda MD PhD CHEST PAIN ICD-786.50 Inactive Alina Castaneda MD PhD FH STROKE ICD-V17.1 Inactive Marvel Charles [employer] FATIGUE ICD-780.79 Inactive Alina Castaneda MD PhD [...] MD PhD SINUSITIS, ACUTE ICD-461.9 Inactive Alina Castandea MD PhD DIABETIC HYPOGLYCEMIA, TYPE II ICD-250.80 [...] x 1 week then daily FLUTICASONE PROPIONATE 62080967443 Active Mima Erazo RN WOUND CARE Active BD PEN NEEDLE MINI U/F 31G X 5 MM MISC 4 a day INSULIN PEN NEEDLE 03703888548 Active Marvel Mackenzieglestela [employer] Active AMITIZA 24 MCG ORAL CAPS Take one capsule BID for constipation LUBIPROSTONE 66022292738 Active Mima Erazo RN WOUND CARE Active LEVEMIR FLEXTOUCH 100 UNIT/ML SC SOPN 75 units SQ each evening, for diabetes INSULIN DETEMIR 74079918364 Active CRYSTAL Rodrigues Active TRUEPLUS LANCETS 30G MISC 3 a day LANCETS 57859657402 Active Marvel MARROQUIN Active TOLTERODINE TARTRATE 2 MG TABS 1 pill twice daily, for bladder TOLTERODINE TARTRATE 90890769093 No Longer Active Vanessa Hickey MD Active AMITIZA 24 MCG ORAL CAPS Take one capsule BID for constipation. LUBIPROSTONE 92264518400 No Longer Active Vanessa Hickey MD Active LOMOTIL 2.5-0.025 MG ORAL TABS take 1-2 tabs PO after each stool, no more than 8 in 24 hours DIPHENOXYLATE-ATROPINE 80351936794 Active Grace Azam RMA Active FLUVOXAMINE MALEATE 100 MG ORAL TABS take one tab every AM et HS, and take 1/ 2 tab at noon FLUVOXAMINE MALEATE 25573732476 Active Grace Azam RMA Active METOPROLOL SUCCINATE 100 MG [id number]-QRO 1 by mouth daily for blood pressure METOPROLOL SUCCINATE 43604015152 No Longer Active Grace Azam RMA Active METFORMIN HCL ER 500 MG RC63H-PIP Take three tablets by mouth everyday METFORMIN HCL 57138429593 No Longer Active Grace Azam RMA Active LOVAZA 1 GM CAPS 4 daily (for triglycerides) OMEGA-3- ACID ETHYL ESTERS 44331459791 No Longer Active Grace Azam RMA Active TRAZODONE HCL 100 MG ORAL TABS 1 tab by mouth for sleep TRAZODONE HCL 39484100732 No Longer Active Grace Azam RMA Active NOVOFINE 32G X 6 MM MISC use one four times per day INSULIN PEN NEEDLE 15339037695 No Longer Active Grace Azam RMA Active BACTROBAN 2 % CREAM Apply to affected area BID for up to 10 days MUPIROCIN CALCIUM 85511853490 No Longer Active Grace Azam RMA Active ZOFRAN 4 MG TABS 1 po q4hr PRN Nausea ONDANSETRON HCL 23718381832 Active Salina Ervinford RMA Active KEFLEX 500 MG CAP 1 po BID x 7 days CEPHALEXIN 82636726823 No Longer Active Cherelle Avila RN WOUND CARE Active FLUVOXAMINE MALEATE 100 MG TABS Take one (1) tablet by mouth am, 1/2 at noon FLUVOXAMINE MALEATE 06884631619 No Longer Active Mima Erazo RN WOUND CARE Active CORICIDIN HBP CONGESTION/COUGH 10-200 MG ORAL CAPS Take as directed on box as needed for cold/flu symptoms DEXTROMETHORPHAN-GUAIFENESIN 93879149656 Active Cherelle Avila RN WOUND CARE Active OMEGA-3 300 MG ORAL CAPS 4 caps by mouth daily OMEGA-3 FATTY ACIDS 13223177461 Active Mima Erazo RN WOUND CARE Active FLUVOXAMINE MALEATE 100 MG ORAL TABS Take 1/2 tab at noon FLUVOXAMINE MALEATE 89953013983 No Longer Active Cherelle Avila RN WOUND CARE Active [facility] LUBRICANT EYE DROPS 0.4-0.3 % OPHTH SOLN POLYETHYL GLYCOL-PROPYL GLYCOL 12686073059 Active Mima Erazo RN WOUND CARE Active CLONAZEPAM 1 MG TABS 1/2 pill by mouth three times daily CLONAZEPAM 66882682906 Active Alina Castaneda MD PhD Active MIRALAX POWD 17g by mouth daily, for constipation POLYETHYLENE GLYCOL 3350 94973407963 Active Alina Castaneda MD PhD Active HYDROCODONE-ACETAMINOPHEN 5-325 MG TABS 2 tabs by mouth three times daily for pain HYDROCODONE-ACETAMINOPHEN 17276816518 Active Mima Erazo RN WOUND CARE Active HUMALOG KWIKPEN 100 UNIT/ML SC SOPN 20 units with breakfast, 10 units with lunch, 10 units with dinner, for diabetes INSULIN LISPRO (HUMAN ) 61573677526 Active Alina Castaneda MD PhD Active LATUDA 120 MG ORAL TABS 1 pill by mouth nightly LURASIDONE HCL 16613569060 Active Alina Castaneda MD PhD Active COLACE 100 MG CAPS 1 pill by mouth twice daily, for constipation DOCUSATE SODIUM 66752358577 Active Alina Castaneda MD PhD Active TRUETEST TEST STRP check blood sugars 3x/day GLUCOSE BLOOD 06180164988 Active Marvel MARROQUIN Active ACCU-CHEK ROSA UZMA Use device to check blood sugars BLOOD GLUCOSE MONITORING SUPPL 81258665360 No Longer Active Marvel MARROQUIN Active ACCU-CHEK ROSA INVITR STRP use strips with device to check blood sugars 3 times daily GLUCOSE BLOOD 15231153199 No Longer Active Marvel MARROQUIN Active VERAPAMIL HCL ER 180 MG ORAL CR-TABS 1 pill by mouth twice daily, for migraine prevention VERAPAMIL HCL 75596151545 Active Alina Castaneda MD PhD Active CYCLOBENZAPRINE HCL 10 MG TABS 1 tablet by mouth three times daily, scheduled CYCLOBENZAPRINE HCL 36318747631 No Longer Active Alina Castaneda MD PhD Active HUMALOG 100 UNIT/ML SOLN Take 20 units with breakfast, 10u with lunch and suppetr. INSULIN LISPRO (HUMAN) 75006699016 No Longer Active Alina Castaneda MD PhD Active TRUETEST TEST STRP check sugars 4x/day GLUCOSE BLOOD 11879274504 No Longer Active Alina Castaneda MD PhD Active MORPHINE SULFATE 30 MG TABS 1 pill by mouth twice daily, for pain MORPHINE SULFATE 89695015373 Active Mima Erazo RN WOUND CARE Active ACYCLOVIR 400 MG ORAL TABS 1 pill three times daily x 5 days, for cold sore outbreak ACYCLOVIR 41042242267 No Longer Active Alina Castaneda MD PhD Active PENICILLIN V POTASSIUM 500 MG TABS 1 pill by mouth three times daily PENICILLIN V POTASSIUM 14722467088 No Longer Active Alina Castaneda MD PhD Active UROXATRAL 10 MG PT16H-UHL Take 1 tablet by mouth daily ALFUZOSIN HCL 09857434432 No Longer Active Alina Castaneda MD PhD Active THIOTHIXENE 5 MG CAPS by mouth twice a day THIOTHIXENE 84197205431 No Longer Active Alina Castaneda MD PhD Active ZYPREXA 7.5 MG TABS 1 at HS OLANZAPINE 33733453697 No Longer Active Alina Castaneda MD PhD Active BD INSULIN SYRINGE 28G X 1/2" 1 ML MISC 1 four times per day INSULIN SYRINGE-NEEDLE U-100 22886197947 Active Marvel MARROQUIN Active DETROL LA 4 MG SA06Z-GET Take 1 tablet by mouth daily TOLTERODINE TARTRATE 05125238800 No Longer Active Alina Castaneda MD PhD Active TERESE CONTOUR TEST STRP monitor blood sugars 3x/day GLUCOSE BLOOD 62167683513 No Longer Active Alina Castaneda MD PhD Active EQL TRUETEST TEST STRP Test blood sugar TID GLUCOSE BLOOD 64743472283 No Longer Active Alina Castaneda MD PhD Active FLUTICASONE PROPIONATE 50 MCG/ACT SUSP 2 sprays each nostril qDay x 30 days FLUTICASONE PROPIONATE 52511328281 No Longer Active Alina Castaneda MD PhD Active IBUPROFEN 200 MG TABS 1 Q 6 hr. PRN IBUPROFEN 04788801386 No Longer Active Alina Castaneda MD PhD Active NIACIN ER 500 MG CR-TABS 4 qHS (for triglycerides) NIACIN 68503324154 No Longer Active Alina Castaneda MD PhD Active ALFUZOSIN HCL ER 10 MG [id number] 1 tablet daily ALFUZOSIN HCL 29793834122 Active Vanessa Hickey MD Active SAPHRIS 5 MG SUBL by mouth twice a day ASENAPINE MALEATE 55326267763 No Longer Active Marvel MARROQUIN Active ACETAMINOPHEN 500 MG TABS 2 Q 6 hr. PRN ACETAMINOPHEN 25514178807 No Longer Active Marvel MARROQUIN Active ORPHENADRINE CITRATE ER 100 MG NS14P-OCL 1 every 12 hr. as needed ORPHENADRINE CITRATE 96195097891 No Longer Active Alina Castaneda MD PhD Active NIACIN CR 500 MG CR-TABS 2 qHS NIACIN 75195975760 No Longer Active Alina Castaneda MD PhD Active AMOXICILLIN 500 MG CAPS 2 po BID x 10 days AMOXICILLIN 47859619753 No Longer Active Alina Castaneda MD PhD Active HYDROCODONE-ACETAMINOPHEN 7.5-325 MG TABS 1 four times a day as needed for pain HYDROCODONE-ACETAMINOPHEN 61665332005 No Longer Active Alina Castaneda MD PhD Active DOXEPIN HCL 10 MG CAPS Take 1 tablet by mouth daily DOXEPIN HCL 22841156876 No Longer Active Salina Han A Active NAVANE 10 MG CAPS 1/2 tablet twice a day THIOTHIXENE No Longer Active Salina Han A Active CYCLOBENZAPRINE HCL 10 MG TABS 1/2 tablet by mouth every 8 hours as needed for muscle spasms CYCLOBENZAPRINE HCL 36392640384 No Longer Active Alina Castaneda MD PhD Active BACTROBAN 2 % CREAM apply to ear and nose twice daily MUPIROCIN CALCIUM 97216268092 No Longer Active Alina Castaneda MD PhD Active HYDROCODONE-ACETAMINOPHEN 5-325 MG TABS take one tablet by mouth every four hours as needed for pain HYDROCODONE-ACETAMINOPHEN 84760135497 No Longer Active Alina Castaneda MD PhD Active ZOLPIDEM TARTRATE 10 MG TABS take at bedtime ZOLPIDEM TARTRATE 62017853817 Active Alina Castaneda MD PhD Active ZYPREXA 5 MG TABS take one tablet by mouth every evening OLANZAPINE 57255969500 No Longer Active Alina Castaneda MD PhD Active ALBUTEROL SULFATE 0.083 % NEBU SOLN one vial per nebulizer TID and PRN cough/ soa ALBUTEROL SULFATE 83000037820 No Longer Active Alina Castaneda MD PhD Active GUAIFENESIN 600 MG RX72C-HWI 1 tablet by mouth twice daily if needed for cough GUAIFENESIN 76843569406 No Longer Active Marvel MARROQUIN Active AZITHROMYCIN 500 MG SOLR 1 po q day AZITHROMYCIN 55335080443 No Longer Active Alina Castaneda MD PhD Active PROMETHAZINE-CODEINE 6.25-10 MG/5ML SYRP 1 tsp po q 6 hours prn cough PROMETHAZINE-CODEINE 93791132209 No Longer Active Alina Castaneda MD PhD Active CEFDINIR 300 MG CAPS by mouth twice a day CEFDINIR 19367683456 No Longer Active Alina Castaneda MD PhD Active METFORMIN HCL 500 MG GL77L-XJI Take 3 tablets by mouth everyday METFORMIN HCL 56504628085 No Longer Active Alina Castaneda MD PhD Active LEVEMIR 100 UNIT/ML SOLN 90 units SQ qHS INSULIN DETEMIR 24989077017 No Longer Active Marvel MARROQUIN Active TOPROL XL 100 MG HI68K-KQK 1 @ HS METOPROLOL SUCCINATE 55716930166 No Longer Active Marvel MARROQUIN Active ALLOPURINOL 300 MG TABS Take one by mouth daily ALLOPURINOL 98965332652 Active Alina Castaneda MD PhD Active ZYPREXA 10 MG TABS Take one by mouth daily OLANZAPINE 16801780359 No Longer Active Alina Castaneda MD PhD Active NOVOLOG 100 UNIT/ML SOLN 40 units with every meal INSULIN ASPART 58869146531 No Longer Active Alina Castaneda MD PhD Active VERAPAMIL HCL CR 120 MG TAB CR 1 qPM VERAPAMIL HCL 94473874986 No Longer Active Salina Emely ROJAS Active ZYPREXA 15 MG TABS Take 1 tablet by mouth daily OLANZAPINE 14992830206 No Longer Active Marvel MARROQUIN Active LISINOPRIL 20 MG TABS 1 BID LISINOPRIL 76583059212 Active Alina Castaneda MD PhD Active ALBUTEROL SULFATE (2.5 MG/3ML) 0.083% NEBU 1 neb tid and prn cough ALBUTEROL SULFATE 52006656987 No Longer Active Alina Castaneda MD PhD Active TRAVATAN Z 0.004 % SOLN 1 gtt each eye daily TRAVOPROST 47313876707 Active CRYSTAL Suarez Active LANTUS 100 UNIT/ML SOLN 60 units sq q hs INSULIN GLARGINE 88685265352 No Longer Active CRYSTAL Suarez Active ALBUTEROL SULFATE (2.5 MG/3ML) 0.083% NEBU 1 neb tid and prn cough ALBUTEROL SULFATE (2.5 MG/3ML) 0.083% NEBU 213902 ALBUTEROL SULFATE Inactive ZYPREXA 15 MG TABS Take 1 tablet by mouth daily ZYPREXA 15 MG TABS 088380 OLANZAPINE Inactive VERAPAMIL HCL CR 120 MG TAB CR 1 qPM VERAPAMIL HCL CR 120 MG TAB CR VERAPAMIL HCL Inactive ZYPREXA 10 MG TABS Take one by mouth daily ZYPREXA 10 MG TABS 933944 OLANZAPINE Inactive TOPROL XL 100 MG PR78B-MLT 1 @ HS TOPROL XL 100 MG NG82B-ESO METOPROLOL SUCCINATE Inactive LEVEMIR 100 UNIT/ML SOLN 90 units SQ qHS LEVEMIR 100 UNIT/ML SOLN INSULIN DETEMIR Inactive PROMETHAZINE-CODEINE 6.25-10 MG/5ML SYRP 1 tsp po q 6 hours prn cough PROMETHAZINE-CODEINE 6.25-10 MG/5ML SYRP 917464 PROMETHAZINE- CODEINE Inactive GUAIFENESIN 600 MG IW77I-IHA 1 tablet by mouth twice daily if needed for cough GUAIFENESIN 600 MG TR18O-ZNQ GUAIFENESIN Inactive ALBUTEROL SULFATE 0.083 % NEBU SOLN one vial per nebulizer TID and PRN cough/ soa ALBUTEROL SULFATE 0.083 % NEBU SOLN 182221 ALBUTEROL SULFATE Inactive ZYPREXA 5 MG TABS take one tablet by mouth every evening ZYPREXA 5 MG TABS 824759 OLANZAPINE Inactive HYDROCODONE-ACETAMINOPHEN 5-325 MG TABS take one tablet by mouth every four hours as needed for pain HYDROCODONE-ACETAMINOPHEN 5-325 MG TABS 635555 HYDROCODONE-ACETAMINOPHEN Inactive BACTROBAN 2 % CREAM apply to ear and nose twice daily BACTROBAN 2 % CREAM 189695 MUPIROCIN CALCIUM Inactive CYCLOBENZAPRINE HCL 10 MG TABS 1/2 tablet by mouth every 8 hours as needed for muscle spasms CYCLOBENZAPRINE HCL 10 MG TABS 301152 CYCLOBENZAPRINE HCL Inactive NAVANE 10 MG CAPS 1/2 tablet twice a day NAVANE 10 MG CAPS THIOTHIXENE Inactive DOXEPIN HCL 10 MG CAPS Take 1 tablet by mouth daily DOXEPIN HCL 10 MG CAPS 9878064 DOXEPIN HCL Inactive HYDROCODONE-ACETAMINOPHEN 7.5-325 MG TABS 1 four times a day as needed for pain HYDROCODONE-ACETAMINOPHEN 7.5-325 MG TABS 426874 HYDROCODONE-ACETAMINOPHEN Inactive NIACIN CR 500 MG CR-TABS 2 qHS NIACIN CR 500 MG CR- TABS NIACIN Inactive ORPHENADRINE CITRATE ER 100 MG [id number]-WMH 1 every 12 hr. as needed ORPHENADRINE CITRATE ER 100 MG SF13T-XVX ORPHENADRINE CITRATE Inactive ACETAMINOPHEN 500 MG TABS 2 Q 6 hr. PRN ACETAMINOPHEN 500 MG TABS 848886 ACETAMINOPHEN Inactive SAPHRIS 5 MG SUBL by mouth twice a day SAPHRIS 5 MG SUBL ASENAPINE MALEATE Inactive NIACIN ER 500 MG CR-TABS 4 qHS (for triglycerides) NIACIN ER 500 MG CR-TABS NIACIN Inactive IBUPROFEN 200 MG TABS 1 Q 6 hr. PRN IBUPROFEN 200 MG TABS 442942 IBUPROFEN Inactive FLUTICASONE PROPIONATE 50 MCG/ACT SUSP 2 sprays each nostril qDay x 30 days FLUTICASONE PROPIONATE 50 MCG/ACT SUSP 004423 FLUTICASONE PROPIONATE Inactive EQL TRUETEST TEST STRP Test blood sugar TID EQL TRUETEST TEST STRP GLUCOSE BLOOD Inactive TERESE CONTOUR TEST STRP monitor blood sugars 3x/day TERESE CONTOUR TEST STRP GLUCOSE BLOOD Inactive DETROL LA 4 MG [id number]-KKX Take 1 tablet by mouth daily DETROL LA 4 MG [id number] TOLTERODINE TARTRATE Inactive ZYPREXA 7.5 MG TABS 1 at HS ZYPREXA 7.5 MG TABS 716922 OLANZAPINE Inactive THIOTHIXENE 5 MG CAPS by mouth twice a day THIOTHIXENE 5 MG CAPS 523207 THIOTHIXENE Inactive UROXATRAL 10 MG [id number] Take 1 tablet by mouth daily UROXATRAL 10 MG VN75J-MVG ALFUZOSIN HCL Inactive ACYCLOVIR 400 MG ORAL TABS 1 pill three times daily x 5 days, for cold sore outbreak ACYCLOVIR 400 MG ORAL TABS 246321 ACYCLOVIR Inactive TRUETEST TEST STRP check sugars 4x/day TRUETEST TEST STRP GLUCOSE BLOOD Inactive HUMALOG 100 UNIT/ML SOLN Take 20 units with breakfast, 10u with lunch and suppetr. HUMALOG 100 UNIT/ML SOLN INSULIN LISPRO ( HUMAN) Inactive CYCLOBENZAPRINE HCL 10 MG TABS 1 tablet by mouth three times daily, scheduled CYCLOBENZAPRINE HCL 10 MG TABS 788049 CYCLOBENZAPRINE HCL Inactive ACCU-CHEK ROSA INVITR STRP use strips with device to check blood sugars 3 times daily ACCU-CHEK ROSA INVITR STRP GLUCOSE BLOOD Inactive ACCU-CHEK ROSA UZMA Use device to check blood sugars ACCU-CHEK ROSA UZMA BLOOD GLUCOSE MONITORING SUPPL Inactive FLUVOXAMINE MALEATE 100 MG ORAL TABS Take 1/2 tab at noon FLUVOXAMINE MALEATE 100 MG ORAL TABS 362371 FLUVOXAMINE MALEATE Inactive FLUVOXAMINE MALEATE 100 MG TABS Take one (1) tablet by mouth am, 1/2 at noon FLUVOXAMINE MALEATE 100 MG TABS 884082 FLUVOXAMINE MALEATE Inactive BACTROBAN 2 % CREAM Apply to affected area BID for up to 10 days BACTROBAN 2 % CREAM 207611 MUPIROCIN CALCIUM Inactive NOVOFINE 32G X 6 MM MISC use one four times per day NOVOFINE 32G X 6 MM MISC INSULIN PEN NEEDLE Inactive TRAZODONE HCL 100 MG ORAL TABS 1 tab by mouth for sleep TRAZODONE HCL 100 MG ORAL TABS 972768 TRAZODONE HCL Inactive LOVAZA 1 GM CAPS 4 daily (for triglycerides) LOVAZA 1 GM CAPS 340816 NDPSE-4-ERLA ETHYL ESTERS Inactive METFORMIN HCL ER 500 MG HW88Y-SAE Take three tablets by mouth everyday METFORMIN HCL ER 500 MG IQ39P-PIO METFORMIN HCL Inactive METOPROLOL SUCCINATE 100 MG SK34I-AKY 1 by mouth daily for blood pressure METOPROLOL SUCCINATE 100 MG BI58L-XZK METOPROLOL SUCCINATE Inactive AMITIZA 24 MCG ORAL CAPS Take one capsule BID for constipation. AMITIZA 24 MCG ORAL CAPS LUBIPROSTONE Inactive TOLTERODINE TARTRATE 2 MG TABS 1 pill twice daily, for bladder TOLTERODINE TARTRATE 2 MG TABS 823568 TOLTERODINE TARTRATE Inactive CEFDINIR 300 MG CAPS by mouth twice a day CEFDINIR 300 MG CAPS 765831 CEFDINIR Inactive AZITHROMYCIN 500 MG SOLR 1 po q day AZITHROMYCIN 500 MG SOLR 36447940531 AZITHROMYCIN Inactive AMOXICILLIN 500 MG CAPS 2 po BID x 10 days AMOXICILLIN 500 MG CAPS 645248 AMOXICILLIN Inactive PENICILLIN V POTASSIUM 500 MG TABS 1 pill by mouth three times daily PENICILLIN V POTASSIUM 500 MG TABS 144535 PENICILLIN V POTASSIUM Inactive KEFLEX 500 MG CAP 1 po BID x 7 days KEFLEX 500 MG CAP 029222 CEPHALEXIN Inactive Immunizations Vaccine Administration Date Value [...] Fluvirin, Fluarix, Agriflu(>=18 yo)) Fluzone (>3 yrs.) [[id number]] Influenza, seasonal, injectable pneumococcal immunization administered Pneumovax [...] MICROALBUMIN - Chemistry sodium, serum 137 mmol/L 539-316 4924/05/19 potassium, serum 5.2 mmol/L 3.5-5.2 chloride, serum [...] Panel - Chemistry sodium, serum 137 mmol/L 305-005 1149/10/12 potassium, serum 4.8 mmol/L 3.5-5.2 chloride, serum 102 mmol/L 98-107 carbon dioxide, venous blood 27.6 mmol/L 21.0-32.0 blood glucose 168 mg/dL 65-110 calcium, serum 9.0 mg/dL 8.5-10.1 urea nitrogen, blood 15 mg/dL 7-18 creatinine, serum 1.04 mg/dL 0.55-1.30 sodium, serum 138 mmol/L 372-670 5971/11/11 potassium, serum 4.7 mmol/L 3.5-5.2 chloride, serum [...] % 11.6-14.8 platelet count 240 10^3/MM^3 10*3/mm3 375-015 5406/11/11 leukocyte count, blood 9.6 10^3/MM^3 10*3/mm3 4.6-10.2 [...] 252 10^3/MM^3 10*3/mm3 142-424 Lab Report: Chlamydia/GC APTIMA/99434, HIV-1/2 Agn/Dominga/75057, RPR (DX) W ... - Chemistry hepatitis B surface antigen NON-REACTIVE NON-REACTIVE Lab Report: Chlamydia/GC APTIMA/13360, HIV-1/2 Agn/Dominga/44729, RPR (DX) W ... - Lab chlamydia DNA probe NOT DETECTED NOT DETECTED Lab Report: Chlamydia/GC APTIMA/72982, HIV-1/2 Agn/Dominga/61119, RPR (DX) W ... - Microbiology Neisseria gonorrhoeae DNA probe NOT DETECTED NOT DETECTED Lab Report: Chlamydia/GC APTIMA/07110, HIV-1/2 Agn/Dominga/79015, RPR (DX) W ... - Serology rapid plasma reagin antibody titer NON-REACTIVE NON-REACTIVE Lab Report: HGBA1C - Chemistry hemoglobin A1C, blood, as % of total hemoglobin 6.1 % 4.3-6.0 hemoglobin A1C, blood, as % of total hemoglobin 6.3 % 4.3-6.0 Lab Report: Lipid Panel, HEPATIC PANEL, MICROALBUMIN, CBC - Chemistry albumin/creatinine ratio, urine < 30 mg/g mg/g{creat} 0-29 cholesterol, serum 131 mg/dL 647-588 7177/06/03 triglyceride, serum, fasting 383 mg/dL 30-200 HDL [...] Acid - Chemistry cholesterol, serum 142 mg/dL 728-047 7722/06/26 triglyceride, serum, fasting 272 mg/dL 30-200 HDL [...] negative Encounters Code Encounter Date Provider Facility [facility]-[id number] Level 3 Est. Patient 14:39:00 STOCK BUYER Vanessa Hickey MD [facility]-51559 Level 2 Est. Patient 18:43:34 CDT Mima Erazo [facility]-48868 Level 3 Est. Patient 16:22:09 CDT Cherelle Avila [facility]-68042 Level 4 Est. Patient 17:55:14 CDT Mima Erazo [facility] [place] [facility] [place]PT-50255 Level 2 Est. Patient 17:13:21 CDT Alina Castaneda MD PhD [facility]-85902 Level 3 Est. Patient 14:46:15 CDT Vanessa Hickey MD [facility]11224 Level 3 Est. Patient 09:34:56 CDT Alina Castaneda MD PhD [facility]62276 Level 3 Est. Patient 21:40:19 CDT Mima Erazo [facility]-36178 Level 3 Est. Patient 09:26:40 CDT Marvel Charles [facility]-35587 Level 3 Est. Patient 12:36:43 CDT Vanessa Hickey MD [facility]86787 Level 3 Est. Patient 12:57:49 CDT Vanessa Hickey MD [facility]59436 Level 3 Est. Patient 00:28:25 CDT Alina Castaneda MD [facility]-49805 Level 2 Est. Patient 12:52:14 CDT Alina Castaneda MD [facility]-49160 Level 3 Est. Patient 11:51:18 STOCK BUYER Alina Castaneda MD [facility]-45059 Level 3 Est. Patient 10:09:22 STOCK BUYER Alina Castaneda MD [facility]-82620 Level 3 Est. Patient 14:36:26 STOCK BUYER Marvel Charles [facility]-06069 Level 3 Est. Patient 13:34:47 STOCK BUYER Alina Castaneda MD [facility]94644 Level 3 Est. Patient 19:52:08 STOCK BUYER Alina Castaneda MD [facility]-77260 Level 3 Est. Patient 10:01:51 [facility]-73772 Level 3 Est. Patient 21:54:06 CDT Vanessa Hickey MD [facility]-72667 Level 3 Est. Patient 08:54:46 CDT Alina Castaneda MD [facility]-26259 Level 3 Est. Patient 09:32:11 CDT Marvel Charles [facility]-05427 Level 3 Est. Patient 12:02:49 CDT Alina Castaneda MD [facility]-08047 Level 3 Est. Patient 19:17:33 CDT Alina Castaneda MD [facility]-54187 Level 3 Est. Patient 13:19:10 CDT Marvel Charles [facility]-26647 Level 3 Est. Patient 08:20:05 CDT Alina Castaneda MD [facility]03022 Level 3 Est. Patient 15:17:18 CDT Alina Castaneda MD [facility]-64706 Level 3 Est. Patient 14:25:36 STOCK BUYER Marvel Charles [facility] CPT-06547 Level 3 Est. Patient 10:09:15 STOCK BUYER Marvel Charles [facility] CPT-15554 Level 3 Est. Patient 21:28:43 CDT Alina Castaneda MD [facility]-38978 Level 3 Est. Patient 15:20:11 CDT Marvel Thurstonestela [facility]-91008 Level 4 Est. Patient 19:08:12 CDT Alina Castaneda MD [facility]-73358 Level 3 Est. [facility]:06:[facility]-90483 Level 4 Est. Patient 17:48:15 CDT Alina Castaneda MD [facility]-47880 Level 3 Est. Patient 14:53:49 CDT Alina Castaneda MD [facility]-89352 Level 3 Est. Patient 09:35:16 CDT Alina Castaneda MD [facility]-96263 Level 3 Est. Patient 12:23:22 CDT Alina Castaneda MD [facility] CPT-63078 Level 3 Est. Patient 16:19:15 CDT Alina Castaneda MD [facility]-91615 Level 3 Est. Patient 21:39:56 STOCK BUYER Alina Castaneda MD [facility]-37714 Level 4 Est. Patient 14:12:56 STOCK BUYER Alina Castaneda MD [facility]-23282 Level 2 Est. Patient 15:34:57 STOCK BUYER Alina Castaneda MD [facility]-11914 Level 3 Est. Patient 12:17:04 STOCK BUYER Alina Castaneda MD [facility]-23268 Level 3 Est. Patient 09:18:18 STOCK BUYER Marvel Charles [facility]-49613 Level 2 Est. Patient 21:50:24 CDT Alina Castaneda MD [facility]-89473 Level 3 Est. Patient 09:17:28 CDT Marvel Charles [facility]-27949 Level 4 Est. Patient 18:54:02 CDT Alina Castaneda MD [facility]-06076 Level 3 Est. Patient 10:47:10 CDT Alina Castaneda MD [facility]-68237 Level 3 Est. Patient 09:22:20 CDT Marvel Charles [facility]-78283 Level 3 Est. Patient 16:39:43 CDT [facility] [facility][id number] Level 3 Est. Patient 16:05:16 CDT Alina Castaneda MD [facility]-[id number] Level 3 Est. Patient 00:29:15 CDT Alina Castaneda MD [facility]-53412 Level 3 Est. Patient 10:49:22 STOCK BUYER Marvel Charles [facility]14741 Level 3 Est. Patient 21:30:19 STOCK BUYER Alina Castaneda MD [facility]-21730 Level 4 Est. Patient 17:04:11 STOCK BUYER Marvel Charles [facility]-94789 Level 3 Est. Patient 15:34:11 STOCK BUYER Marvel Charles [facility] CPT-97357 Level 2 Est. Patient 12:51:58 STOCK BUYER Alina Castaneda MD PhD [facility] CPT-99421 Level 3 Est. Patient 13:20:01 STOCK BUYER Alina Castaneda MD PhD [facility] CPT-05604 Level 3 Est. Patient 09:23:35 CDT Alina Castaneda MD PhD [facility] Procedures Code Procedure Name Date Entry Date Standard Description CPT-71645 Bladder Scan 14:39:01 STOCK BUYER CPT-TCMM Transitional Care Mgmt-Moderate 10:30:19 STOCK BUYER CPT-39601 Bladder Scan 12:36:44 CDT CPT-30306 Bladder Scan 21:54:06 CDT CPT-G0008 Administration of Influenza Virus Vaccine 13:05:26 CDT CPT-60805 Fluzone Quadrivalent Intramuscular Suspension 0.5 ML 13: 05:26 CDT CPT-42456 Administration single or combination vaccine inc oral 11 :49:51 CDT CPT-79331 Pneumovax 11:49:51 CDT CPT-36337 Ribs unilateral 2V 12:37:22 STOCK BUYER CPT-85683 Chest 2V Frontal and Lat 17:15:26 CDT CPT-69458 Abx/Therapy Injection 18:54:02 CDT CPT-J0696 Rocephin 1000 mg (Ceftriaxone) 16:00:32 CDT CPT-97879 Chest 2V Frontal and Lat 15:26:45 CDT CPT-56022 Chest 2V Frontal and Lat 10:23:27 CDT CPT-03134 Venipuncture Draw Fee 10:11:00 CDT CPT-61495 Administration single or combination vaccine inc oral 11 :56:38 CDT CPT-84048 Influenza split virus > age 3 11:56:38 CDT CPT-46535 Venipuncture Draw Fee 08:49:54 STOCK BUYER CPT-11476 EKG Trac and Interp 17:54:19 STOCK BUYER
--- OUTSIDE RECORDS SUMMARY | 2018-07-02 16:48 | XMS REPORT | Clinical Summary ---
Author Author Admin, TERELL Organization [facility] Address Unknown Phone Unavailable Allergies, Adverse Reactions, 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 Erazo CHARGE AUDITOR Benign paroxysmal positional vertigo Vertigo, benign paroxysmal position 386.11 Inactive Mima Erazo CHARGE AUDITOR Benign paroxysmal positional vertigo High-risk sexual behavior V69.2 Active Alina Castaneda MD PhD High-risk sexual behavior Erectile dysfunction 302.72 Active Alina Castaneda MD PhD Psychosexual dysfunction with inhibited sexual excitement Constipation 564.00 Active Alina Castaneda MD PhD Constipation, unspecified Skin lesion 709.9 Active Alina Castaneda MD PhD Unspecified disorder of skin and subcutaneous tissue Malaise and fatigue 780.79 Active Cherelle Speaks CHARGE AUDITOR Other malaise and fatigue Diarrhea 787.91 Active Cherelle Speaks CHARGE AUDITOR Diarrhea PHARYNGITIS 462 Active Cherelle Speakluciana CHARGE AUDITOR Acute pharyngitis Colitis 558.9 Active Mima Erazo CHARGE AUDITOR Other and unspecified noninfectious gastroenteritis and colitis [...] uncontrolled ICD-250.02 Inactive Alina Castaneda MD PhD SKIN LESION ICD-709.9 Roro Castaneda MD PhD SINUSITIS, ACUTE ICD-461.9 Roro Castaneda MD PhD SPECIAL SCREENING FOR [...] LANCETS 30G MISC 3 a day LANCETS 68189947316 Active Marvel MARROQUIN Active TOLTERODINE TARTRATE 2 MG TABS 1 pill twice daily, for bladder TOLTERODINE TARTRATE 83748240959 No Longer Active Vanessa Hickey MD Active AMITIZA 24 MCG ORAL CAPS Take one capsule BID for constipation. LUBIPROSTONE 62007773693 No Longer Active Vanessa Hickey MD Active LOMOTIL 2.5-0.025 MG ORAL TABS take 1-2 tabs PO after each stool, no more than 8 in 24 hours DIPHENOXYLATE-ATROPINE 76728242339 Active Grace ROJAS Active FLUVOXAMINE MALEATE 100 MG ORAL TABS take one tab every AM et HS, and take 1/ 2 tab at noon FLUVOXAMINE MALEATE 36011566989 Active Grace ROJAS Active METOPROLOL SUCCINATE 100 MG [id number]-VCB 1 by mouth daily for blood pressure METOPROLOL SUCCINATE 55505798834 No Longer Active Grace ROJAS Active METFORMIN HCL ER 500 MG ET51D-LAT Take three tablets by mouth everyday METFORMIN HCL 35461361409 No Longer Active Grace Azam RMA Active LOVAZA 1 GM CAPS 4 daily (for triglycerides) OMEGA-3- ACID ETHYL ESTERS 67822910520 No Longer Active Grace Azam RMA Active TRAZODONE HCL 100 MG ORAL TABS 1 tab by mouth for sleep TRAZODONE HCL 29203710415 No Longer Active Grace Azam RMA Active NOVOFINE 32G X 6 MM MISC use one four times per day INSULIN PEN NEEDLE 79340200322 No Longer Active Grace Azam RMA Active BACTROBAN 2 % CREAM Apply to affected area BID for up to 10 days MUPIROCIN CALCIUM 06633754547 No Longer Active Grace Azam RMA Active ZOFRAN 4 MG TABS 1 po q4hr PRN Nausea ONDANSETRON HCL 84483322070 Active Salina Emely RMA Active KEFLEX 500 MG CAP 1 po BID x 7 days CEPHALEXIN 93294994703 No Longer Active Cherelle Felixs CHARGE AUDITOR Active FLUVOXAMINE MALEATE 100 MG TABS Take one (1) tablet by mouth am, 1/2 at noon FLUVOXAMINE MALEATE 98363474450 No Longer Active Mima Erazo APRN Active CORICIDIN HBP CONGESTION/COUGH 10-200 MG ORAL CAPS Take as directed on box as needed for cold/flu symptoms DEXTROMETHORPHAN-GUAIFENESIN 82720080521 Active Cherelle Speaks CHARGE AUDITOR Active OMEGA-3 300 MG ORAL CAPS 4 caps by mouth daily OMEGA-3 FATTY ACIDS 87152775114 Active Cherelle Speaks CHARGE AUDITOR Active FLUVOXAMINE MALEATE 100 MG ORAL TABS Take 1/2 tab at noon FLUVOXAMINE MALEATE 64135047827 No Longer Active Cherelle Speaks CHARGE AUDITOR Active [facility] LUBRICANT EYE DROPS 0.4-0.3 % OPHTH SOLN POLYETHYL GLYCOL-PROPYL GLYCOL 63967213437 Active Mima Yokum CHARGE AUDITOR Active CLONAZEPAM 1 MG TABS 1/2 pill by mouth three times daily CLONAZEPAM 70594030480 Active Alina Castaneda MD PhD Active MIRALAX POWD 17g by mouth daily, for constipation POLYETHYLENE GLYCOL 3350 17855018237 Active Alina Castaneda MD PhD Active HYDROCODONE-ACETAMINOPHEN 5-325 MG TABS 2 tabs by mouth three times daily for pain HYDROCODONE-ACETAMINOPHEN 22045455868 Active Mima Erazo CHARGE AUDITOR Active HUMALOG KWIKPEN 100 UNIT/ML SC SOPN 20 units with breakfast, 10 units with lunch, 10 units with dinner, for diabetes INSULIN LISPRO (HUMAN ) 92643774650 Active Alina Castaneda MD PhD Active LEVEMIR FLEXTOUCH 100 UNIT/ML SC SOPN 70 units SQ each evening, for diabetes INSULIN DETEMIR 12980040983 Active Mima Erazo CHARGE AUDITOR Active LATUDA 120 MG ORAL TABS 1 pill by mouth nightly LURASIDONE HCL 95276911923 Active Alina Castaneda MD PhD Active COLACE 100 MG CAPS 1 pill by mouth twice daily, for constipation DOCUSATE SODIUM 01230088384 Active Alina Castaneda MD PhD Active TRUETEST TEST STRP check blood sugars 3x/day GLUCOSE BLOOD 02476148512 Active Marvel MENDOZAP Active ACCU-CHEK ROSA UZMA Use device to check blood sugars BLOOD GLUCOSE MONITORING SUPPL 40806788929 No Longer Active Marvel MARROQUIN Active ACCU-CHEK ROSA INVITR STRP use strips with device to check blood sugars 3 times daily GLUCOSE BLOOD 14515185337 No Longer Active Marvel MENDOZAP Active VERAPAMIL HCL ER 180 MG ORAL CR-TABS 1 pill by mouth twice daily, for migraine prevention VERAPAMIL HCL 86123393621 Active Alina Castaneda MD PhD Active CYCLOBENZAPRINE HCL 10 MG TABS 1 tablet by mouth three times daily, scheduled CYCLOBENZAPRINE HCL 04512581228 No Longer Active Alina Castaneda MD PhD Active HUMALOG 100 UNIT/ML SOLN Take 20 units with breakfast, 10u with lunch and suppetr. INSULIN LISPRO (HUMAN) 47646614227 No Longer Active Alina Castaneda MD PhD Active TRUETEST TEST STRP check sugars 4x/day GLUCOSE BLOOD 91187856911 No Longer Active Alina Castaneda MD PhD Active MORPHINE SULFATE 30 MG TABS 1 pill by mouth twice daily, for pain MORPHINE SULFATE 37621566636 Active Mima Erazo CHARGE AUDITOR Active ACYCLOVIR 400 MG ORAL TABS 1 pill three times daily x 5 days, for cold sore outbreak ACYCLOVIR 86324806988 No Longer Active Alina Castaneda MD PhD Active PENICILLIN V POTASSIUM 500 MG TABS 1 pill by mouth three times daily PENICILLIN V POTASSIUM 44237507929 No Longer Active Alina Castaneda MD PhD Active UROXATRAL 10 MG [id number]-JKG Take 1 tablet by mouth daily ALFUZOSIN HCL 64705728575 No Longer Active Alina Castaneda MD PhD Active THIOTHIXENE 5 MG CAPS by mouth twice a day THIOTHIXENE 63543547727 No Longer Active Alina Castaneda MD PhD Active ZYPREXA 7.5 MG TABS 1 at HS OLANZAPINE 77349257179 No Longer Active Alina Castaneda MD PhD Active BD INSULIN SYRINGE 28G X 1/2" 1 ML MISC 1 four times per day INSULIN SYRINGE-NEEDLE U-100 18673880996 Active [facility] Gurdeepglestela [facility] Active DETROL LA 4 MG JF82B-PUF Take 1 tablet by mouth daily TOLTERODINE TARTRATE 89057018401 No Longer Active Alina Castaneda MD PhD Active TERESE CONTOUR TEST STRP monitor blood sugars 3x/day GLUCOSE BLOOD 14428636673 No Longer Active Alina Castaneda MD PhD Active EQL TRUETEST TEST STRP Test blood sugar TID GLUCOSE BLOOD 13144794997 No Longer Active Alina Castaneda MD PhD Active FLUTICASONE PROPIONATE 50 MCG/ACT SUSP 2 sprays each nostril qDay x 30 days FLUTICASONE PROPIONATE 28721858237 No Longer Active Alina Castaneda MD PhD Active IBUPROFEN 200 MG TABS 1 Q 6 hr. PRN IBUPROFEN 36191928239 No Longer Active Alina Castaneda MD PhD Active NIACIN ER 500 MG CR-TABS 4 qHS (for triglycerides) NIACIN 32726342982 No Longer Active Alina Castaneda MD PhD Active ALFUZOSIN HCL ER 10 MG BH40W-TZK 1 tablet daily ALFUZOSIN HCL 34008745983 Active Vanessa Hickey MD Active SAPHRIS 5 MG SUBL by mouth twice a day ASENAPINE MALEATE 52557144915 No Longer Active Mallashondaeh Ziglari NATURAL RESOURCES EXTENSION EDUCATOR Active ACETAMINOPHEN 500 MG TABS 2 Q 6 hr. PRN ACETAMINOPHEN 57797510760 No Longer Active Maliheh Ziglari NATURAL RESOURCES EXTENSION EDUCATOR Active ORPHENADRINE CITRATE ER 100 MG WL60H-BTV 1 every 12 hr. as needed ORPHENADRINE CITRATE 27927424380 No Longer Active Alina Castaneda MD PhD Active NIACIN CR 500 MG CR-TABS 2 qHS NIACIN 36606183709 No Longer Active Alina Castaneda MD PhD Active AMOXICILLIN 500 MG CAPS 2 po BID x 10 days AMOXICILLIN 32221453904 No Longer Active Alina Castaneda MD PhD Active HYDROCODONE-ACETAMINOPHEN 7.5-325 MG TABS 1 four times a day as needed for pain HYDROCODONE-ACETAMINOPHEN 94107608979 No Longer Active Alina Castaneda MD PhD Active DOXEPIN HCL 10 MG CAPS Take 1 tablet by mouth daily DOXEPIN HCL 90381298444 No Longer Active Salina ROJAS Active NAVANE 10 MG CAPS 1/2 tablet twice a day THIOTHIXENE No Longer Active Salina ROJAS Active CYCLOBENZAPRINE HCL 10 MG TABS 1/2 tablet by mouth every 8 hours as needed for muscle spasms CYCLOBENZAPRINE HCL 46081599367 No Longer Active Alina Castaneda MD PhD Active BACTROBAN 2 % CREAM apply to ear and nose twice daily MUPIROCIN CALCIUM 35651075425 No Longer Active Alina Castaneda MD PhD Active HYDROCODONE-ACETAMINOPHEN 5-325 MG TABS take one tablet by mouth every four hours as needed for pain HYDROCODONE-ACETAMINOPHEN 98009325723 No Longer Active Alina Castaneda MD PhD Active ZOLPIDEM TARTRATE 10 MG TABS take at bedtime ZOLPIDEM TARTRATE 21528982949 Active Alina Castaneda MD PhD Active ZYPREXA 5 MG TABS take one tablet by mouth every evening OLANZAPINE 28056607196 No Longer Active Alina Castaneda MD PhD Active ALBUTEROL SULFATE 0.083 % NEBU SOLN one vial per nebulizer TID and PRN cough/ soa ALBUTEROL SULFATE 80176159850 No Longer Active Alina Castaneda MD PhD Active GUAIFENESIN 600 MG LI32D-DXE 1 tablet by mouth twice daily if needed for cough GUAIFENESIN 73842490176 No Longer Active Marvel MARROQUIN Active AZITHROMYCIN 500 MG SOLR 1 po q day AZITHROMYCIN 78941426240 No Longer Active Alina Castaneda MD PhD Active PROMETHAZINE-CODEINE 6.25-10 MG/5ML SYRP 1 tsp po q 6 hours prn cough PROMETHAZINE-CODEINE 17345493233 No Longer Active Alina Castaneda MD PhD Active CEFDINIR 300 MG CAPS by mouth twice a day CEFDINIR 21015613340 No Longer Active Alina Castaneda MD PhD Active METFORMIN HCL 500 MG DQ59P-KXW Take 3 tablets by mouth everyday METFORMIN HCL 33623807193 No Longer Active Alina Castaneda MD PhD Active LEVEMIR 100 UNIT/ML SOLN 90 units SQ qHS INSULIN DETEMIR 05049252756 No Longer Active Marvel MARROQUIN Active TOPROL XL 100 MG [id number] 1 @ HS METOPROLOL SUCCINATE 18374329674 No Longer Active Marvel MARROQUIN Active ALLOPURINOL 300 MG TABS Take one by mouth daily ALLOPURINOL 54151457834 Active Alina Castaneda MD PhD Active ZYPREXA 10 MG TABS Take one by mouth daily OLANZAPINE 45049866801 No Longer Active Alina Castaneda MD PhD Active NOVOLOG 100 UNIT/ML SOLN 40 units with every meal INSULIN ASPART 14022662710 No Longer Active Alina Castaneda MD PhD Active VERAPAMIL HCL CR 120 MG TAB CR 1 qPM VERAPAMIL HCL 25076389314 No Longer Active Salina ROJAS Active ZYPREXA 15 MG TABS Take 1 tablet by mouth daily OLANZAPINE 36427378800 No Longer Active Marvel MARROQUIN Active LISINOPRIL 20 MG TABS 1 BID LISINOPRIL 44001791230 Active Alina Castaneda MD PhD Active ALBUTEROL SULFATE (2.5 MG/3ML) 0.083% NEBU 1 neb tid and prn cough ALBUTEROL SULFATE 24335218239 No Longer Active Alina Castaneda MD PhD Active TRAVATAN Z 0.004 % SOLN 1 gtt each eye daily TRAVOPROST 63562069944 Active CRYSTAL Suarez Active LANTUS 100 UNIT/ML SOLN 60 units sq q hs INSULIN GLARGINE 77053466904 No Longer Active CRYSTAL Suarez Active ALBUTEROL SULFATE (2.5 MG/3ML) 0.083% NEBU 1 neb tid and prn cough ALBUTEROL SULFATE (2.5 MG/3ML) 0.083% NEBU 282048 ALBUTEROL SULFATE Inactive ZYPREXA 15 MG TABS Take 1 tablet by mouth daily ZYPREXA 15 MG TABS 805553 OLANZAPINE Inactive VERAPAMIL HCL CR 120 MG TAB CR 1 qPM VERAPAMIL HCL CR 120 MG TAB CR VERAPAMIL HCL Inactive ZYPREXA 10 MG TABS Take one by mouth daily ZYPREXA 10 MG TABS 385761 OLANZAPINE Inactive TOPROL XL 100 MG IN64B-VVQ 1 @ HS TOPROL XL 100 MG XQ19G-RHG METOPROLOL SUCCINATE Inactive LEVEMIR 100 UNIT/ML SOLN 90 units SQ qHS LEVEMIR 100 UNIT/ML SOLN INSULIN DETEMIR Inactive PROMETHAZINE-CODEINE 6.25-10 MG/5ML SYRP 1 tsp po q 6 hours prn cough PROMETHAZINE-CODEINE 6.25-10 MG/5ML SYRP 775274 PROMETHAZINE- CODEINE Inactive GUAIFENESIN 600 MG PY46R-SPE 1 tablet by mouth twice daily if needed for cough GUAIFENESIN 600 MG GY69W-WUT GUAIFENESIN Inactive ALBUTEROL SULFATE 0.083 % NEBU SOLN one vial per nebulizer TID and PRN cough/ soa ALBUTEROL SULFATE 0.083 % NEBU SOLN 164909 ALBUTEROL SULFATE Inactive ZYPREXA 5 MG TABS take one tablet by mouth every evening ZYPREXA 5 MG TABS 980870 OLANZAPINE Inactive HYDROCODONE-ACETAMINOPHEN 5-325 MG TABS take one tablet by mouth every four hours as needed for pain HYDROCODONE-ACETAMINOPHEN 5-325 MG TABS 389088 HYDROCODONE-ACETAMINOPHEN Inactive BACTROBAN 2 % CREAM apply to ear and nose twice daily BACTROBAN 2 % CREAM 367110 MUPIROCIN CALCIUM Inactive CYCLOBENZAPRINE HCL 10 MG TABS 1/2 tablet by mouth every 8 hours as needed for muscle spasms CYCLOBENZAPRINE HCL 10 MG TABS 940791 CYCLOBENZAPRINE HCL Inactive NAVANE 10 MG CAPS 1/2 tablet twice a day NAVANE 10 MG CAPS THIOTHIXENE Inactive DOXEPIN HCL 10 MG CAPS Take 1 tablet by mouth daily DOXEPIN HCL 10 MG CAPS 7926101 DOXEPIN HCL Inactive HYDROCODONE-ACETAMINOPHEN 7.5-325 MG TABS 1 four times a day as needed for pain HYDROCODONE-ACETAMINOPHEN 7.5-325 MG TABS 796853 HYDROCODONE-ACETAMINOPHEN Inactive NIACIN CR 500 MG CR-TABS 2 qHS NIACIN CR 500 MG CR- TABS NIACIN Inactive ORPHENADRINE CITRATE ER 100 MG [id number] 1 every 12 hr. as needed ORPHENADRINE CITRATE ER 100 MG [id number]-YGL ORPHENADRINE CITRATE Inactive ACETAMINOPHEN 500 MG TABS 2 Q 6 hr. PRN ACETAMINOPHEN 500 MG TABS 357307 ACETAMINOPHEN Inactive SAPHRIS 5 MG SUBL by mouth twice a day SAPHRIS 5 MG SUBL ASENAPINE MALEATE Inactive NIACIN ER 500 MG CR-TABS 4 qHS (for triglycerides) NIACIN ER 500 MG CR-TABS NIACIN Inactive IBUPROFEN 200 MG TABS 1 Q 6 hr. PRN IBUPROFEN 200 MG TABS 554375 IBUPROFEN Inactive FLUTICASONE PROPIONATE 50 MCG/ACT SUSP 2 sprays each nostril qDay x 30 days FLUTICASONE PROPIONATE 50 MCG/ACT SUSP 460818 FLUTICASONE PROPIONATE Inactive EQL TRUETEST TEST STRP Test blood sugar TID EQL TRUETEST TEST STRP GLUCOSE BLOOD Inactive TERESE CONTOUR TEST STRP monitor blood sugars 3x/day TERESE CONTOUR TEST STRP GLUCOSE BLOOD Inactive DETROL LA 4 MG CB85I-JRG Take 1 tablet by mouth daily DETROL LA 4 MG [id number] TOLTERODINE TARTRATE Inactive ZYPREXA 7.5 MG TABS 1 at HS ZYPREXA 7.5 MG TABS 250053 OLANZAPINE Inactive THIOTHIXENE 5 MG CAPS by mouth twice a day THIOTHIXENE 5 MG CAPS 127510 THIOTHIXENE Inactive UROXATRAL 10 MG UP96Y-CYV Take 1 tablet by mouth daily UROXATRAL 10 MG QU56D-SHQ ALFUZOSIN HCL Inactive ACYCLOVIR 400 MG ORAL TABS 1 pill three times daily x 5 days, for cold sore outbreak ACYCLOVIR 400 MG ORAL TABS 362638 ACYCLOVIR Inactive TRUETEST TEST STRP check sugars 4x/day TRUETEST TEST STRP GLUCOSE BLOOD Inactive HUMALOG 100 UNIT/ML SOLN Take 20 units with breakfast, 10u with lunch and suppetr. HUMALOG 100 UNIT/ML SOLN INSULIN LISPRO ( HUMAN) Inactive CYCLOBENZAPRINE HCL 10 MG TABS 1 tablet by mouth three times daily, scheduled CYCLOBENZAPRINE HCL 10 MG TABS 670751 CYCLOBENZAPRINE HCL Inactive ACCU-CHEK ROSA INVITR STRP use strips with device to check blood sugars 3 times daily ACCU-CHEK ROSA INVITR STRP GLUCOSE BLOOD Inactive ACCU-CHEK ROSA UZMA Use device to check blood sugars ACCU-CHEK ROSA UZMA BLOOD GLUCOSE MONITORING SUPPL Inactive FLUVOXAMINE MALEATE 100 MG ORAL TABS Take 1/2 tab at noon FLUVOXAMINE MALEATE 100 MG ORAL TABS 444131 FLUVOXAMINE MALEATE Inactive FLUVOXAMINE MALEATE 100 MG TABS Take one (1) tablet by mouth am, 1/2 at noon FLUVOXAMINE MALEATE 100 MG TABS 269724 FLUVOXAMINE MALEATE Inactive BACTROBAN 2 % CREAM Apply to affected area BID for up to 10 days BACTROBAN 2 % CREAM 565714 MUPIROCIN CALCIUM Inactive NOVOFINE 32G X 6 MM MISC use one four times per day NOVOFINE 32G X 6 MM MISC INSULIN PEN NEEDLE Inactive TRAZODONE HCL 100 MG ORAL TABS 1 tab by mouth for sleep TRAZODONE HCL 100 MG ORAL TABS 985840 TRAZODONE HCL Inactive LOVAZA 1 GM CAPS 4 daily (for triglycerides) LOVAZA 1 GM CAPS 810181 EUELA-6-PGPM ETHYL ESTERS Inactive METFORMIN HCL ER 500 MG JB57I-SUN Take three tablets by mouth everyday METFORMIN HCL ER 500 MG AA17C-CLV METFORMIN HCL Inactive METOPROLOL SUCCINATE 100 MG SY62O-HKH 1 by mouth daily for blood pressure METOPROLOL SUCCINATE 100 MG NO55J-ZLN METOPROLOL SUCCINATE Inactive AMITIZA 24 MCG ORAL CAPS Take one capsule BID for constipation. AMITIZA 24 MCG ORAL CAPS LUBIPROSTONE Inactive TOLTERODINE TARTRATE 2 MG TABS 1 pill twice daily, for bladder TOLTERODINE TARTRATE 2 MG TABS 102884 TOLTERODINE TARTRATE Inactive CEFDINIR 300 MG CAPS by mouth twice a day CEFDINIR 300 MG CAPS 441773 CEFDINIR Inactive AZITHROMYCIN 500 MG SOLR 1 po q day AZITHROMYCIN 500 MG SOLR 53932475431 AZITHROMYCIN Inactive AMOXICILLIN 500 MG CAPS 2 po BID x 10 days AMOXICILLIN 500 MG CAPS 964952 AMOXICILLIN Inactive PENICILLIN V POTASSIUM 500 MG TABS 1 pill by mouth three times daily PENICILLIN V POTASSIUM 500 MG TABS 393393 PENICILLIN V POTASSIUM Inactive KEFLEX 500 MG CAP 1 po BID x 7 days KEFLEX 500 MG CAP 040215 CEPHALEXIN Inactive Immunizations Vaccine Administration Date Value [...] Fluvirin, Fluarix, Agriflu(>=18 yo)) Fluzone (>3 yrs.) [[id number]] Influenza, seasonal, injectable pneumococcal immunization administered Pneumovax [...] MICROALBUMIN - Chemistry sodium, serum 137 mmol/L 584-771 6699/05/19 potassium, serum 5.2 mmol/L 3.5-5.2 chloride, serum [...] Panel - Chemistry sodium, serum 137 mmol/L 543-515 7973/10/12 potassium, serum 4.8 mmol/L 3.5-5.2 chloride, serum 102 mmol/L 98-107 carbon dioxide, venous blood 27.6 mmol/L 21.0-32.0 blood glucose 168 mg/dL 65-110 calcium, serum 9.0 mg/dL 8.5-10.1 urea nitrogen, blood 15 mg/dL 7-18 creatinine, serum 1.04 mg/dL 0.55-1.30 sodium, serum 138 mmol/L 687-295 0040/11/11 potassium, serum 4.7 mmol/L 3.5-5.2 chloride, serum [...] % 11.6-14.8 platelet count 252 10^3/MM^3 10*3/mm3 720-224 5865/10/12 leukocyte count, blood 5.8 10^3/MM^3 10*3/mm3 4.6-10.2 [...] 240 10^3/MM^3 10*3/mm3 142-424 Lab Report: Chlamydia/GC APTIMA/22385, HIV-1/2 Agn/Dominga/79322, RPR (DX) W ... - Chemistry hepatitis B surface antigen NON-REACTIVE NON-REACTIVE Lab Report: Chlamydia/GC APTIMA/44266, HIV-1/2 Agn/Dominga/15994, RPR (DX) W ... - Lab chlamydia DNA probe NOT DETECTED NOT DETECTED Lab Report: Chlamydia/GC APTIMA/74597, HIV-1/2 Agn/Dominga/05360, RPR (DX) W ... - Microbiology Neisseria gonorrhoeae DNA probe NOT DETECTED NOT DETECTED Lab Report: Chlamydia/GC APTIMA/39482, HIV-1/2 Agn/Dominga/04222, RPR (DX) W ... - Serology rapid [...] 383 mg/dL 30-200 cholesterol, serum 131 mg/dL 948-299 9925/06/03 alanine aminotransferase (SGPT), serum 112 U/L 12-78 [...] Acid - Chemistry cholesterol, serum 142 mg/dL 699-526 0054/06/26 triglyceride, serum, fasting 272 mg/dL 30-200 HDL [...] negative Encounters Code Encounter Date Provider Facility [facility]-94101 Level 3 Est. Patient 14:39:00 CONTINUOUS IMPROVEMENT FACILITATOR Vanessa Hickey MD [facility]-37320 Level 2 Est. Patient 18:43:34 CDT Mima Erazo [facility] [place] CPT-55190 Level 3 Est. Patient 16:22:09 CDT [facility] CPT-23360 Level 4 Est. Patient 17:55:14 CDT Mima Erazo [facility] [place] CPT-97342 Level 2 Est. Patient 17:13:21 CDT Alina Castaneda MD PhD [facility] [place]-46734 Level 3 Est. Patient 14:46:15 CDT Vanessa Hickey MD [facility]-21347 Level 3 Est. Patient 09:34:56 CDT Alina Castaneda MD PhD [facility]19855 Level 3 Est. Patient 21:40:19 CDT Mima Erazo [facility]408 Level 3 Est. Patient 09:26:40 CDT Maliheh Ziglari [facility]-16295 Level 3 Est. Patient 12:36:43 CDT Vanessa Hickey MD [facility]-84428 Level 3 Est. Patient 12:57:49 CDT Vanessa Hickey MD [facility]-50158 Level 3 Est. Patient 00:28:25 CDT Alina Castaneda MD [facility]90491 Level 2 Est. Patient 12:52:14 CDT Alina Castaneda MD [facility]81307 Level 3 Est. Patient 11:51:18 CONTINUOUS IMPROVEMENT FACILITATOR Alina Castaneda MD [facility]74816 Level 3 Est. Patient 10:09:22 CONTINUOUS IMPROVEMENT FACILITATOR Alina Castaneda MD [facility]14305 Level 3 Est. Patient 14:36:26 CONTINUOUS IMPROVEMENT FACILITATOR Marvel [facility]-59500 Level 3 Est. Patient 13:34:47 CONTINUOUS IMPROVEMENT FACILITATOR Alina Castaneda MD [facility]43380 Level 3 Est. Patient 19:52:08 CONTINUOUS IMPROVEMENT FACILITATOR Alina Castaneda MD [facility]83704 Level 3 Est. Patient 10:01:51 CONTINUOUS IMPROVEMENT FACILITATOR [facility]-44670 Level 3 Est. Patient 21:54:06 CDT Vanessa Hickey MD [facility]16229 Level 3 Est. Patient 08:54:46 CDT Alina Castaneda MD [facility]18549 Level 3 Est. Patient 09:32:11 CDT Marvel [facility]64880 Level 3 Est. Patient 12:02:49 CDT Alina Castaneda MD [facility]09376 Level 3 Est. Patient 19:17:33 CDT Alina Castaneda MD [facility] [place]-36869 Level 3 Est. Patient 13:19:10 CDT Marvel [facility]-19712 Level 3 Est. Patient 08:20:05 CDT Alina Castaneda MD [facility] [place]-32704 Level 3 Est. Patient 15:17:18 CDT Alina Castaneda MD [facility]15760 Level 3 Est. Patient 14:25:36 CONTINUOUS IMPROVEMENT FACILITATOR [facility]-43089 Level 3 Est. Patient 10:09:15 CONTINUOUS IMPROVEMENT FACILITATOR [facility]-36720 Level 3 Est. Patient 21:28:43 CDT Alina Castaneda MD [facility] [place]-36598 Level 3 Est. Patient 15:20:11 [facility] 4 Est. Patient 19:08:12 CDT Alina Castaneda MD [facility] [place]-15003 Level 3 Est. Patient 15:06:39 CDT Marvel [facility]-73916 Level 4 Est. Patient 17:48:15 CDT Alina Castaneda MD [facility] [place]-77009 Level 3 Est. Patient 14:53:49 CDT Alina Castaneda MD [facility] [place]-60730 Level 3 Est. Patient 09:35:16 CDT Alina Castaneda MD [facility] [place]-41811 Level 3 Est. Patient 12:23:22 CDT Alina Castaneda MD [facility] [place]-73680 Level 3 Est. Patient 16:19:15 CDT Alina Castaneda MD [facility] [place]-99115 Level 3 Est. Patient 21:39:56 CONTINUOUS IMPROVEMENT FACILITATOR Alina Castaneda MD [facility] [place]-90764 Level 4 Est. Patient 14:12:56 CONTINUOUS IMPROVEMENT FACILITATOR Alina Castaneda MD [facility] [place]-33113 Level 2 Est. Patient 15:34:57 CONTINUOUS IMPROVEMENT FACILITATOR Alina Castaneda MD [facility] [place]-72619 Level 3 Est. Patient 12:17:04 CONTINUOUS IMPROVEMENT FACILITATOR Alina Castaneda MD [facility]02838 Level 3 Est. Patient 09:18:18 CONTINUOUS IMPROVEMENT FACILITATOR [facility]-42323 Level 2 Est. Patient 21:50:24 CDT Alina Castaneda MD [facility] [place]-92965 Level 3 Est. Patient 09:17:28 CDT [facility]-40857 Level 4 Est. Patient 18:54:02 CDT Alina Castaneda MD [facility] [place]-14699 Level 3 Est. Patient 10:47:10 CDT Alina Castaneda MD [facility] [place]-97703 Level 3 Est. Patient 09:22:20 CDT [facility]-92825 Level 3 Est. Patient 16:39:43 CDT [facility]-16088 Level 3 Est. Patient 16:05:16 CDT Alina Castaneda MD [facility]02203 Level 3 Est. Patient 00:29:15 CDT Alina Castaneda MD [facility]56867 Level 3 Est. Patient 10:49:22 CONTINUOUS IMPROVEMENT FACILITATOR [facility]83 Level 3 Est. Patient 21:30:19 CONTINUOUS IMPROVEMENT FACILITATOR Alina Castaneda MD [facility] CPT-73747 Level 4 Est. Patient 17:04:11 CONTINUOUS IMPROVEMENT FACILITATOR [facility] [place] [place] CPT-11751 Level 3 Est. Patient 15:34:11 CONTINUOUS IMPROVEMENT FACILITATOR [facility] [place] CPT-81085 Level 2 Est. Patient 12:51:58 CONTINUOUS IMPROVEMENT FACILITATOR Alina Castaneda MD [facility] CPT-96758 Level 3 Est. Patient 13:20:01 CONTINUOUS IMPROVEMENT FACILITATOR Alina Castaneda MD PhD [facility] CPT-72420 Level 3 Est. Patient 09:23:35 CDT Alina Castaneda MD PhD [facility] Procedures Code Procedure Name Date Entry Date Standard Description CPT-99142 Bladder Scan 14:39:01 CONTINUOUS IMPROVEMENT FACILITATOR CPT-TCMM Transitional Care Mgmt-Moderate 10:30:19 CONTINUOUS IMPROVEMENT FACILITATOR CPT-65755 Bladder Scan 12:36:44 CDT CPT-93238 Bladder Scan 21:54:06 CDT CPT-G0008 Administration of Influenza Virus Vaccine 13:05:26 CDT CPT-53303 Fluzone Quadrivalent Intramuscular Suspension 0.5 ML 13: 05:26 CDT CPT-04606 Administration single or combination vaccine inc oral 11 :49:51 CDT CPT-27022 Pneumovax 11:49:51 CDT CPT-24526 Ribs unilateral 2V 12:37:22 CONTINUOUS IMPROVEMENT FACILITATOR CPT-70743 Chest 2V Frontal and Lat 17:15:26 CDT CPT-21876 Abx/Therapy Injection 18:54:02 CDT CPT-J0696 Rocephin 1000 mg (Ceftriaxone) 16:00:32 CDT CPT-81544 Chest 2V Frontal and Lat 15:26:45 CDT CPT-86854 Chest 2V Frontal and Lat 10:23:27 CDT CPT-57300 Venipuncture Draw Fee 10:11:00 CDT CPT-27101 Administration single or combination vaccine inc oral 11 :56:38 CDT CPT-27534 Influenza split virus > age 3 11:56:38 CDT CPT-04879 Venipuncture Draw Fee 08:49:54 CONTINUOUS IMPROVEMENT FACILITATOR CPT-37060 EKG Trac and Interp 17:54:19 CONTINUOUS IMPROVEMENT FACILITATOR
--- OUTSIDE RECORDS SUMMARY | 2018-07-02 16:50 | XMS REPORT | Clinical Summary ---
Author Author Admin, TERELL Organization [facility] Address Unknown Phone Unavailable Allergies, [...] Unspecified psychosis INCONTINENCE, URGE 788.31 Active Vanessa Hiceky MD Urge incontinence Lower Urinary Tract Symptoms 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 Erazo CRAB CATCHER Benign paroxysmal positional vertigo Vertigo, benign paroxysmal position 386.11 Inactive Mima Erazo CRAB CATCHER Benign paroxysmal positional vertigo High-risk sexual behavior V69.2 Active Alina Castaneda MD PhD High-risk sexual behavior Erectile dysfunction 302.72 Active Alina Castaneda MD PhD Psychosexual dysfunction with inhibited sexual excitement Constipation 564.00 Active Alina Castaneda MD PhD Constipation, unspecified Skin lesion 709.9 Active Alina Castaneda MD PhD Unspecified disorder of skin and subcutaneous tissue Malaise and fatigue 780.79 Active Cherelle Speaks CRAB CATCHER Other malaise and fatigue Diarrhea 787.91 Active Cherelle Speaks CRAB CATCHER Diarrhea PHARYNGITIS 462 Active Cherelle Speaks CRAB CATCHER Acute pharyngitis Colitis 558.9 Active Mima Erazo CRAB CATCHER Other and unspecified noninfectious gastroenteritis and colitis WOUND, OPEN, NOSE ICD-873.20 Inactive Alina Castaneda MD PhD DIABETES, TYPE 2 ICD-250.00 Inactive Alina Castaneda MD PhD HYPERTENSION ICD-401.9 Inactive Alina Castaneda MD PhD URI ICD-465.9 Inactive Alina Castaneda MD PhD CHEST PAIN ICD-786.50 Inactive Alina Castaneda MD PhD FH STROKE ICD-V17.1 Inactive Marvel Charles SERGEANT OF CORRECTIONS FATIGUE ICD-780.79 Inactive Alina Castaneda MD PhD [...] x 1 week then daily FLUTICASONE PROPIONATE 11814794888 Active Mima Erazo CRAB CATCHER Active BD PEN NEEDLE MINI U/F 31G X 5 MM MISC 4 a day INSULIN PEN NEEDLE 63365487678 Active Marvel Mackenzieglestela SERGEANT OF CORRECTIONS Active AMITIZA 24 MCG ORAL CAPS Take one capsule BID for constipation LUBIPROSTONE 56497909715 Active Mima Erazo CRAB CATCHER Active LEVEMIR FLEXTOUCH 100 UNIT/ML SC SOPN 75 units SQ each evening, for diabetes INSULIN DETEMIR 11870289378 Active CRYSTAL Rodrigues Active TRUEPLUS LANCETS 30G MISC 3 a day LANCETS 67816510018 Active Marvel MARROQUIN Active TOLTERODINE TARTRATE 2 MG TABS 1 pill twice daily, for bladder TOLTERODINE TARTRATE 08149760391 No Longer Active Vanessa Hickey MD Active AMITIZA 24 MCG ORAL CAPS Take one capsule BID for constipation. LUBIPROSTONE 25982617702 No Longer Active Vanessa Hickey MD Active LOMOTIL 2.5-0.025 MG ORAL TABS take 1-2 tabs PO after each stool, no more than 8 in 24 hours DIPHENOXYLATE-ATROPINE 72581077933 Active Grace Zaam RMA Active FLUVOXAMINE MALEATE 100 MG ORAL TABS take one tab every AM et HS, and take 1/ 2 tab at noon FLUVOXAMINE MALEATE 06937925746 Active Grace Azam RMA Active METOPROLOL SUCCINATE 100 MG [id number]-[id number] 1 by mouth daily for blood pressure METOPROLOL SUCCINATE 96450946448 No Longer Active Grace Azam RMA Active METFORMIN HCL ER 500 MG [id number]-CDL Take three tablets by mouth everyday METFORMIN HCL 17831524410 No Longer Active Grace Azam RMA Active LOVAZA 1 GM CAPS 4 daily (for triglycerides) OMEGA-3- ACID ETHYL ESTERS 40552837651 No Longer Active Grace Azam RMA Active TRAZODONE HCL 100 MG ORAL TABS 1 tab by mouth for sleep TRAZODONE HCL 61736923903 No Longer Active Grace Azam RMA Active NOVOFINE 32G X 6 MM MISC use one four times per day INSULIN PEN NEEDLE 45621721323 No Longer Active Grace Azam RMA Active BACTROBAN 2 % CREAM Apply to affected area BID for up to 10 days MUPIROCIN CALCIUM 64648262589 No Longer Active Grace Azam RMA Active ZOFRAN 4 MG TABS 1 po q4hr PRN [place]ausea ONDANSETRON HCL 87865452587 Active Salina Ervinford RMA Active KEFLEX 500 MG CAP 1 po BID x 7 days CEPHALEXIN 23337998055 No Longer Active Cherelle Avila CRAB CATCHER Active FLUVOXAMINE MALEATE 100 MG TABS Take one (1) tablet by mouth am, 1/2 at noon FLUVOXAMINE MALEATE 51891783308 No Longer Active Mima Erazo CRAB CATCHER Active CORICIDIN HBP CONGESTION/COUGH 10-200 MG ORAL CAPS Take as directed on box as needed for cold/flu symptoms DEXTROMETHORPHAN-GUAIFENESIN 17201768727 Active Cherelle Avila CRAB CATCHER Active OMEGA-3 300 MG ORAL CAPS 4 caps by mouth daily OMEGA-3 FATTY ACIDS 06362481747 Active Mima Erazo CRAB CATCHER Active FLUVOXAMINE MALEATE 100 MG ORAL TABS Take 1/2 tab at noon FLUVOXAMINE MALEATE 98116317670 No Longer Active Cherelle Avila CRAB CATCHER Active [facility] LUBRICANT EYE DROPS 0.4-0.3 % OPHTH SOLN POLYETHYL GLYCOL-PROPYL GLYCOL 90279938282 Active Mima Erazo CRAB CATCHER Active CLONAZEPAM 1 MG TABS 1/2 pill by mouth three times daily CLONAZEPAM 55390358240 Active Alina Castaneda MD PhD Active MIRALAX POWD 17g by mouth daily, for constipation POLYETHYLENE GLYCOL 3350 38800376080 Active Alina Castaneda MD PhD Active HYDROCODONE-ACETAMINOPHEN 5-325 MG TABS 2 tabs by mouth three times daily for pain HYDROCODONE-ACETAMINOPHEN 66306471274 Active Mima Erazo CRAB CATCHER Active HUMALOG KWIKPEN 100 UNIT/ML SC SOPN 20 units with breakfast, 10 units with lunch, 10 units with dinner, for diabetes INSULIN LISPRO (HUMAN ) 31141282014 Active Alina Castaneda MD PhD Active LATUDA 120 MG ORAL TABS 1 pill by mouth nightly LURASIDONE HCL 48887488302 Active Alina Castaneda MD PhD Active COLACE 100 MG CAPS 1 pill by mouth twice daily, for constipation DOCUSATE SODIUM 28569827147 Active Alina Castaneda MD PhD Active TRUETEST TEST STRP check blood sugars 3x/day GLUCOSE BLOOD 71197933081 Active Marvel MARROQUIN Active ACCU-CHEK ROSA UZMA Use device to check blood sugars BLOOD GLUCOSE MONITORING SUPPL 26190862530 No Longer Active Marvel MARROQUIN Active ACCU-CHEK ROSA INVITR STRP use strips with device to check blood sugars 3 times daily GLUCOSE BLOOD 49869247207 No Longer Active Marvel MARROQUIN Active VERAPAMIL HCL ER 180 MG ORAL CR-TABS 1 pill by mouth twice daily, for migraine prevention VERAPAMIL HCL 05482716746 Active Alina Castaneda MD PhD Active CYCLOBENZAPRINE HCL 10 MG TABS 1 tablet by mouth three times daily, scheduled CYCLOBENZAPRINE HCL 04022516802 No Longer Active Alina Castaneda MD PhD Active HUMALOG 100 UNIT/ML SOLN Take 20 units with breakfast, 10u with lunch and suppetr. INSULIN LISPRO (HUMAN) 09915470538 No Longer Active Alina Castaneda MD PhD Active TRUETEST TEST STRP check sugars 4x/day GLUCOSE BLOOD 72847286652 No Longer Active Alina Castaneda MD PhD Active MORPHINE SULFATE 30 MG TABS 1 pill by mouth twice daily, for pain MORPHINE SULFATE 77584072469 Active Mima Erazo CRAB CATCHER Active ACYCLOVIR 400 MG ORAL TABS 1 pill three times daily x 5 days, for cold sore outbreak ACYCLOVIR 90739870317 No Longer Active Alina Castaneda MD PhD Active PENICILLIN V POTASSIUM 500 MG TABS 1 pill by mouth three times daily PENICILLIN V POTASSIUM 76814060364 No Longer Active Alina Castaneda MD PhD Active UROXATRAL 10 MG TO51Q-JUV Take 1 tablet by mouth daily ALFUZOSIN HCL 56049515581 No Longer Active Alina Castaneda MD PhD Active THIOTHIXENE 5 MG CAPS by mouth twice a day THIOTHIXENE 77885352367 No Longer Active Ailna Castaneda MD PhD Active ZYPREXA 7.5 MG TABS 1 at HS OLANZAPINE 29669072333 No Longer Active Alina Castaneda MD PhD Active BD INSULIN SYRINGE 28G X 1/2" 1 ML MISC 1 four times per day INSULIN SYRINGE-NEEDLE U-100 95838987886 Active Marvel MARROQUIN Active DETROL LA 4 MG [id number]-PWL Take 1 tablet by mouth daily TOLTERODINE TARTRATE 24477476164 No Longer Active Alina Castaneda MD PhD Active TERESE CONTOUR TEST STRP monitor blood sugars 3x/day GLUCOSE BLOOD 05877022927 No Longer Active Alina Castaneda MD PhD Active EQL TRUETEST TEST STRP Test blood sugar TID GLUCOSE BLOOD 20876769648 No Longer Active Alina Castaneda MD PhD Active FLUTICASONE PROPIONATE 50 MCG/ACT SUSP 2 sprays each nostril qDay x 30 days FLUTICASONE PROPIONATE 05766789115 No Longer Active Alina Castaneda MD PhD Active IBUPROFEN 200 MG TABS 1 Q 6 hr. PRN IBUPROFEN 83493366134 No Longer Active Alina Castaneda MD PhD Active NIACIN ER 500 MG CR-TABS 4 qHS (for triglycerides) NIACIN 10862824956 No Longer Active Alina Castaneda MD PhD Active ALFUZOSIN HCL ER 10 MG [id number]-RWH 1 tablet daily ALFUZOSIN HCL 57634449919 Active Vanessa Hickey MD Active SAPHRIS 5 MG SUBL by mouth twice a day ASENAPINE MALEATE 79610441630 No Longer Active Marvel MARROQUIN Active ACETAMINOPHEN 500 MG TABS 2 Q 6 hr. PRN ACETAMINOPHEN 90851387654 No Longer Active Marvel MARROQUIN Active ORPHENADRINE CITRATE ER 100 MG LE55Z-LHL 1 every 12 hr. as needed ORPHENADRINE CITRATE 29108320569 No Longer Active Alina Castaneda MD PhD Active NIACIN CR 500 MG CR-TABS 2 qHS NIACIN 93476013658 No Longer Active Alina Castaneda MD PhD Active AMOXICILLIN 500 MG CAPS 2 po BID x 10 days AMOXICILLIN 32114890724 No Longer Active Alina Castaneda MD PhD Active HYDROCODONE-ACETAMINOPHEN 7.5-325 MG TABS 1 four times a day as needed for pain HYDROCODONE-ACETAMINOPHEN 09327796644 No Longer Active Alina Castaneda MD PhD Active DOXEPIN HCL 10 MG CAPS Take 1 tablet by mouth daily DOXEPIN HCL 06223023081 No Longer Active Salina Han A Active NAVANE 10 MG CAPS 1/2 tablet twice a day THIOTHIXENE No Longer Active Salina Han A Active CYCLOBENZAPRINE HCL 10 MG TABS 1/2 tablet by mouth every 8 hours as needed for muscle spasms CYCLOBENZAPRINE HCL 06296785820 No Longer Active Alina Castaneda MD PhD Active BACTROBAN 2 % CREAM apply to ear and nose twice daily MUPIROCIN CALCIUM 31829579473 No Longer Active Alina Castaneda MD PhD Active HYDROCODONE-ACETAMINOPHEN 5-325 MG TABS take one tablet by mouth every four hours as needed for pain HYDROCODONE-ACETAMINOPHEN 34589108306 No Longer Active Alina Castaneda MD PhD Active ZOLPIDEM TARTRATE 10 MG TABS take at bedtime ZOLPIDEM TARTRATE 25398469791 Active Alina Castaneda MD PhD Active ZYPREXA 5 MG TABS take one tablet by mouth every evening OLANZAPINE 91616052990 No Longer Active Alina Castaneda MD PhD Active ALBUTEROL SULFATE 0.083 % NEBU SOLN one vial per nebulizer TID and PRN cough/ soa ALBUTEROL SULFATE 68993701650 No Longer Active Alina Castaneda MD PhD Active GUAIFENESIN 600 MG HD36Q-UAS 1 tablet by mouth twice daily if needed for cough GUAIFENESIN 80402861587 No Longer Active Marvel MARROQUIN Active AZITHROMYCIN 500 MG SOLR 1 po q day AZITHROMYCIN 40368712230 No Longer Active Alina Castaneda MD PhD Active PROMETHAZINE-CODEINE 6.25-10 MG/5ML SYRP 1 tsp po q 6 hours prn cough PROMETHAZINE-CODEINE 14541292833 No Longer Active Alina Castaneda MD PhD Active CEFDINIR 300 MG CAPS by mouth twice a day CEFDINIR 00308215963 No Longer Active Alina Castaneda MD PhD Active METFORMIN HCL 500 MG EM49G-TOI Take 3 tablets by mouth everyday METFORMIN HCL 26118624844 No Longer Active Alina Castaneda MD PhD Active LEVEMIR 100 UNIT/ML SOLN 90 units SQ qHS INSULIN DETEMIR 89813707952 No Longer Active Marvel MARROQUIN Active TOPROL XL 100 MG ZG19J-QVL 1 @ HS METOPROLOL SUCCINATE 48907138624 No Longer Active Marvel MARROQUIN Active ALLOPURINOL 300 MG TABS Take one by mouth daily ALLOPURINOL 29149749401 Active Alina Castaneda MD PhD Active ZYPREXA 10 MG TABS Take one by mouth daily OLANZAPINE 11625226999 No Longer Active Alina Castaneda MD PhD Active NOVOLOG 100 UNIT/ML SOLN 40 units with every meal INSULIN ASPART 36025879082 No Longer Active Alina Castaneda MD PhD Active VERAPAMIL HCL CR 120 MG TAB CR 1 qPM VERAPAMIL HCL 63321448784 No Longer Active Salina Emely ROJAS Active ZYPREXA 15 MG TABS Take 1 tablet by mouth daily OLANZAPINE 10450455762 No Longer Active Marvel MARROQUIN Active LISINOPRIL 20 MG TABS 1 BID LISINOPRIL 25019734985 Active Alina Castaneda MD PhD Active ALBUTEROL SULFATE (2.5 MG/3ML) 0.083% NEBU 1 neb tid and prn cough ALBUTEROL SULFATE 70939980265 No Longer Active Alina Castaneda MD PhD Active TRAVATAN Z 0.004 % SOLN 1 gtt each eye daily TRAVOPROST 21586779288 Active CRYSTAL Suarez Active LANTUS 100 UNIT/ML SOLN 60 units sq q hs INSULIN GLARGINE 23975549520 No Longer Active CRYSTAL Suarez Active ALBUTEROL SULFATE (2.5 MG/3ML) 0.083% NEBU 1 neb tid and prn cough ALBUTEROL SULFATE (2.5 MG/3ML) 0.083% NEBU 211293 ALBUTEROL SULFATE Inactive ZYPREXA 15 MG TABS Take 1 tablet by mouth daily ZYPREXA 15 MG TABS 971388 OLANZAPINE Inactive VERAPAMIL HCL CR 120 MG TAB CR 1 qPM VERAPAMIL HCL CR 120 MG TAB CR VERAPAMIL HCL Inactive ZYPREXA 10 MG TABS Take one by mouth daily ZYPREXA 10 MG TABS 231509 OLANZAPINE Inactive TOPROL XL 100 MG LL94S-GES 1 @ HS TOPROL XL 100 MG FK03Q-CUR METOPROLOL SUCCINATE Inactive LEVEMIR 100 UNIT/ML SOLN 90 units SQ qHS LEVEMIR 100 UNIT/ML SOLN INSULIN DETEMIR Inactive PROMETHAZINE-CODEINE 6.25-10 MG/5ML SYRP 1 tsp po q 6 hours prn cough PROMETHAZINE-CODEINE 6.25-10 MG/5ML SYRP 679224 PROMETHAZINE- CODEINE Inactive GUAIFENESIN 600 MG MC70B-VEA 1 tablet by mouth twice daily if needed for cough GUAIFENESIN 600 MG DD73O-KMB GUAIFENESIN Inactive ALBUTEROL SULFATE 0.083 % NEBU SOLN one vial per nebulizer TID and PRN cough/ soa ALBUTEROL SULFATE 0.083 % NEBU SOLN 503858 ALBUTEROL SULFATE Inactive ZYPREXA 5 MG TABS take one tablet by mouth every evening ZYPREXA 5 MG TABS 051804 OLANZAPINE Inactive HYDROCODONE-ACETAMINOPHEN 5-325 MG TABS take one tablet by mouth every four hours as needed for pain HYDROCODONE-ACETAMINOPHEN 5-325 MG TABS 783224 HYDROCODONE-ACETAMINOPHEN Inactive BACTROBAN 2 % CREAM apply to ear and nose twice daily BACTROBAN 2 % CREAM 364689 MUPIROCIN CALCIUM Inactive CYCLOBENZAPRINE HCL 10 MG TABS 1/2 tablet by mouth every 8 hours as needed for muscle spasms CYCLOBENZAPRINE HCL 10 MG TABS 069664 CYCLOBENZAPRINE HCL Inactive NAVANE 10 MG CAPS 1/2 tablet twice a day NAVANE 10 MG CAPS THIOTHIXENE Inactive DOXEPIN HCL 10 MG CAPS Take 1 tablet by mouth daily DOXEPIN HCL 10 MG CAPS 9277523 DOXEPIN HCL Inactive HYDROCODONE-ACETAMINOPHEN 7.5-325 MG TABS 1 four times a day as needed for pain HYDROCODONE-ACETAMINOPHEN 7.5-325 MG TABS 536884 HYDROCODONE-ACETAMINOPHEN Inactive NIACIN CR 500 MG CR-TABS 2 qHS NIACIN CR 500 MG CR- TABS NIACIN Inactive ORPHENADRINE CITRATE ER 100 MG HG54M-INH 1 every 12 hr. as needed ORPHENADRINE CITRATE ER 100 MG [id number]-AKA ORPHENADRINE CITRATE Inactive ACETAMINOPHEN 500 MG TABS 2 Q 6 hr. PRN ACETAMINOPHEN 500 MG TABS 154897 ACETAMINOPHEN Inactive SAPHRIS 5 MG SUBL by mouth twice a day SAPHRIS 5 MG SUBL ASENAPINE MALEATE Inactive NIACIN ER 500 MG CR-TABS 4 qHS (for triglycerides) NIACIN ER 500 MG CR-TABS NIACIN Inactive IBUPROFEN 200 MG TABS 1 Q 6 hr. PRN IBUPROFEN 200 MG TABS 083193 IBUPROFEN Inactive FLUTICASONE PROPIONATE 50 MCG/ACT SUSP 2 sprays each nostril qDay x 30 days FLUTICASONE PROPIONATE 50 MCG/ACT SUSP 417308 FLUTICASONE PROPIONATE Inactive EQL TRUETEST TEST STRP Test blood sugar TID EQL TRUETEST TEST STRP GLUCOSE BLOOD Inactive TERESE CONTOUR TEST STRP monitor blood sugars 3x/day TERESE CONTOUR TEST STRP GLUCOSE BLOOD Inactive DETROL LA 4 MG ZZ74Y-DLK Take 1 tablet by mouth daily DETROL LA 4 MG HX92M-WMF TOLTERODINE TARTRATE Inactive ZYPREXA 7.5 MG TABS 1 at HS ZYPREXA 7.5 MG TABS 536326 OLANZAPINE Inactive THIOTHIXENE 5 MG CAPS by mouth twice a day THIOTHIXENE 5 MG CAPS 883446 THIOTHIXENE Inactive UROXATRAL 10 MG MU92Y-IEH Take 1 tablet by mouth daily UROXATRAL 10 MG XS42C-VNC ALFUZOSIN HCL Inactive ACYCLOVIR 400 MG ORAL TABS 1 pill three times daily x 5 days, for cold sore outbreak ACYCLOVIR 400 MG ORAL TABS 908243 ACYCLOVIR Inactive TRUETEST TEST STRP check sugars 4x/day TRUETEST TEST STRP GLUCOSE BLOOD Inactive HUMALOG 100 UNIT/ML SOLN Take 20 units with breakfast, 10u with lunch and suppetr. HUMALOG 100 UNIT/ML SOLN INSULIN LISPRO ( HUMAN) Inactive CYCLOBENZAPRINE HCL 10 MG TABS 1 tablet by mouth three times daily, scheduled CYCLOBENZAPRINE HCL 10 MG TABS 774888 CYCLOBENZAPRINE HCL Inactive ACCU-CHEK ROSA INVITR STRP use strips with device to check blood sugars 3 times daily ACCU-CHEK ROSA INVITR STRP GLUCOSE BLOOD Inactive ACCU-CHEK ROSA UZMA Use device to check blood sugars ACCU-CHEK ROSA UZMA BLOOD GLUCOSE MONITORING SUPPL Inactive FLUVOXAMINE MALEATE 100 MG ORAL TABS Take 1/2 tab at noon FLUVOXAMINE MALEATE 100 MG ORAL TABS 041747 FLUVOXAMINE MALEATE Inactive FLUVOXAMINE MALEATE 100 MG TABS Take one (1) tablet by mouth am, 1/2 at noon FLUVOXAMINE MALEATE 100 MG TABS 542621 FLUVOXAMINE MALEATE Inactive BACTROBAN 2 % CREAM Apply to affected area BID for up to 10 days BACTROBAN 2 % CREAM 323129 MUPIROCIN CALCIUM Inactive NOVOFINE 32G X 6 MM MISC use one four times per day NOVOFINE 32G X 6 MM MISC INSULIN PEN NEEDLE Inactive TRAZODONE HCL 100 MG ORAL TABS 1 tab by mouth for sleep TRAZODONE HCL 100 MG ORAL TABS 358099 TRAZODONE HCL Inactive LOVAZA 1 GM CAPS 4 daily (for triglycerides) LOVAZA 1 GM CAPS 154285 QVEFQ-9-KTKS ETHYL ESTERS Inactive METFORMIN HCL ER 500 MG WS32E-AFZ Take three tablets by mouth everyday METFORMIN HCL ER 500 MG GE40D-TQD METFORMIN HCL Inactive METOPROLOL SUCCINATE 100 MG YM25L-QSP 1 by mouth daily for blood pressure METOPROLOL SUCCINATE 100 MG BS40T-ZYC METOPROLOL SUCCINATE Inactive AMITIZA 24 MCG ORAL CAPS Take one capsule BID for constipation. AMITIZA 24 MCG ORAL CAPS LUBIPROSTONE Inactive TOLTERODINE TARTRATE 2 MG TABS 1 pill twice daily, for bladder TOLTERODINE TARTRATE 2 MG TABS 614698 TOLTERODINE TARTRATE Inactive CEFDINIR 300 MG CAPS by mouth twice a day CEFDINIR 300 MG CAPS 103229 CEFDINIR Inactive AZITHROMYCIN 500 MG SOLR 1 po q day AZITHROMYCIN 500 MG SOLR 48043822170 AZITHROMYCIN Inactive AMOXICILLIN 500 MG CAPS 2 po BID x 10 days AMOXICILLIN 500 MG CAPS 758041 AMOXICILLIN Inactive PENICILLIN V POTASSIUM 500 MG TABS 1 pill by mouth three times daily PENICILLIN V POTASSIUM 500 MG TABS 989069 PENICILLIN V POTASSIUM Inactive KEFLEX 500 MG CAP 1 po BID x 7 days KEFLEX 500 MG CAP 963215 CEPHALEXIN Inactive Immunizations Vaccine Administration Date Value [...] Fluvirin, Fluarix, Agriflu(>=18 yo)) Fluzone (>3 yrs.) [ECU786] Influenza, seasonal, injectable pneumococcal immunization administered Pneumovax [...] MICROALBUMIN - Chemistry sodium, serum 137 mmol/L 006-584 9976/05/19 potassium, serum 5.2 mmol/L 3.5-5.2 chloride, serum [...] Panel - Chemistry sodium, serum 137 mmol/L 873-272 8621/10/12 potassium, serum 4.8 mmol/L 3.5-5.2 chloride, serum 102 mmol/L 98-107 carbon dioxide, venous blood 27.6 mmol/L 21.0-32.0 blood glucose 168 mg/dL 65-110 calcium, serum 9.0 mg/dL 8.5-10.1 urea nitrogen, blood 15 mg/dL 7-18 creatinine, serum 1.04 mg/dL 0.55-1.30 sodium, serum 138 mmol/L 359-876 3690/11/11 potassium, serum 4.7 mmol/L 3.5-5.2 chloride, serum [...] % 11.6-14.8 platelet count 252 10^3/MM^3 10*3/mm3 354-889 8286/10/12 leukocyte count, blood 5.8 10^3/MM^3 10*3/mm3 4.6-10.2 [...] 240 10^3/MM^3 10*3/mm3 142-424 Lab Report: Chlamydia/GC APTIMA/14997, HIV-1/2 Agn/Dominga/44320, RPR (DX) W ... - Chemistry hepatitis B surface antigen NON-REACTIVE NON-REACTIVE Lab Report: Chlamydia/GC APTIMA/58394, HIV-1/2 Agn/Dominga/02783, RPR (DX) W ... - Lab chlamydia DNA probe NOT DETECTED NOT DETECTED Lab Report: Chlamydia/GC APTIMA/13754, HIV-1/2 Agn/Dominga/94104, RPR (DX) W ... - Microbiology Neisseria gonorrhoeae DNA probe NOT DETECTED NOT DETECTED Lab Report: Chlamydia/GC APTIMA/85933, HIV-1/2 Agn/Dominga/19505, RPR (DX) W ... - Serology rapid [...] 383 mg/dL 30-200 cholesterol, serum 131 mg/dL 589-246 3300/06/03 bilirubin, serum, total 0.30 mg/dL 0.00-1.00 Lab [...] % 11.6-14.8 platelet count 239 10^3/MM^3 10*3/mm3 778-281 7804/06/03 leukocyte count, blood 7.3 10^3/MM^3 10*3/mm3 4.6-10.2 Lab Report: Lipid Panel, HEPATIC PANEL, MICROALBUMIN, CBC - Lab microalbumin, urine 30 0-19 Lab Report: Lipid Panel, Prostatic Specific Ag, MICROALBUMIN, Uric Acid - Chemistry albumin/creatinine ratio, urine < 30 mg/g mg/g{creat} 0-29 uric acid, serum 4.7 mg/dL 2.6-7.2 cholesterol, serum 142 mg/dL 577-852 3822/06/26 triglyceride, serum, fasting 272 mg/dL 30-200 HDL [...] negative Encounters Code Encounter Date Provider Facility CPT-10361 Level 3 Est. Patient 14:39:00 LINING SEWER Vanessa Hickey MD [facility]-08653 Level 2 Est. Patient 18:43:34 CDT Mima Erazo [facility]-56546 Level 3 Est. Patient 16:22:09 CDT Cherelle Avila [facility]-30627 Level 4 Est. Patient 17:55:14 CDT Mima Erazo [facility]-09745 Level 2 Est. Patient 17:13:21 CDT Alina Castaneda MD [facility]53135 Level 3 Est. Patient 14:46:15 CDT Vanessa Hickey MD [facility]-23558 Level 3 Est. Patient 09:34:56 CDT Alina Castaneda MD [facility]-88182 Level 3 Est. Patient 21:40:19 CDT Mima Erazo [facility] CPT-65272 Level 3 Est. Patient 09:26:40 CDT Marvel Charles [facility] [place]-84288 Level 3 Est. Patient 12:36:43 CDT Vanessa Hickey MD [facility]-09112 Level 3 Est. Patient 12:57:49 CDT Vanessa Hickey MD [facility]-37138 Level 3 Est. Patient 00:28:25 CDT Alina Castaneda MD [facility]18317 Level 2 Est. Patient 12:52:14 CDT Alina Castaneda MD [facility]23221 Level 3 Est. Patient 11:51:18 LINING SEWER Alina Castaneda MD [facility]11407 Level 3 Est. Patient 10:09:22 LINING SEWER Alina Castaneda MD PhD [facility] CPT-23778 Level 3 Est. Patient 14:36:26 LINING SEWER Marvel Araceli [facility]-59692 Level 3 Est. Patient 13:34:47 LINING SEWER Alina Castaneda MD [facility]-51852 Level 3 Est. Patient 19:52:08 LINING SEWER Alina Castaneda MD [facility]82685 Level 3 Est. Patient 10:01:51 LINING SEWER Marvel Gurdeepanca [facility]-41198 Level 3 Est. Patient 21:54:06 CDT Vanessa Hickey MD [facility]-66547 Level 3 Est. Patient 08:54:46 CDT Alina Castaneda MD [facility]64966 Level 3 Est. Patient 09:32:11 CDT Marvel Araceli [facility]-10017 Level 3 Est. Patient 12:02:49 CDT Alina Castaneda MD [facility]13728 Level 3 Est. Patient 19:17:33 CDT Alina Castaneda MD [facility]96282 Level 3 Est. Patient 13:19:10 CDT Brooksjohn Charles [facility]-43317 Level 3 Est. Patient 08:20:05 CDT Alina Castaneda MD [facility]15483 Level 3 Est. Patient 15:17:18 CDT Alina Castaneda MD [facility]35418 Level 3 Est. Patient 14:25:36 LINING SEWER Marvel Araceli [facility]-26175 Level 3 Est. Patient 10:09:15 LINING SEWER Marvel Araceli [facility]-68415 Level 3 Est. Patient 21:28:43 CDT Alina Castaneda MD [facility]-15136 Level 3 Est. Patient 15:20:[facility]-20763 Level 4 Est. Patient 19:08:12 CDT Alina Castaneda MD [facility]-43256 Level 3 Est. Patient 15:06:39 CDT Marvel Charles [facility] CPT-07244 Level 4 Est. Patient 17:48:15 CDT Alina Castaneda MD [facility]-75926 Level 3 Est. Patient 14:53:49 CDT Alina Castaneda MD [facility]-90935 Level 3 Est. Patient 09:35:16 CDT Alina Castaneda MD [facility]-37558 Level 3 Est. Patient 12:23:22 CDT Alina Castaneda MD [facility]-94192 Level 3 Est. Patient 16:19:15 CDT Alina Castaneda MD [facility]-16133 Level 3 Est. Patient 21:39:56 LINING SEWER Alina Castaneda MD [facility]-04449 Level 4 Est. Patient 14:12:56 LINING SEWER Alina Castaneda MD [facility]-86396 Level 2 Est. Patient 15:34:57 LINING SEWER Alina Castaneda MD [facility]-67124 Level 3 Est. Patient 12:17:04 LINING SEWER Alina Castaneda MD [facility]-31358 Level 3 Est. Patient 09:18:18 LINING SEWER Marvel Charles [facility]-82870 Level 2 Est. Patient 21:50:24 CDT Alina Castaneda MD [facility]-28748 Level 3 Est. Patient 09:17:28 CDT Marvel Charles [facility]-38961 Level 4 Est. Patient 18:54:02 CDT Alina Castaneda MD [facility]-66786 Level 3 Est. Patient 10:47:10 CDT Alina Castaneda MD [facility]-[id number] Level 3 Est. Patient 09:22:20 CDT [facility]-11975 Level 3 Est. Patient 16:39:43 CDT [facility]-06886 Level 3 Est. Patient 16:05:16 CDT Alina Castaneda MD [facility]-62442 Level 3 Est. Patient 00:29:15 CDT Alina Castaneda MD [facility]-10685 Level 3 Est. Patient 10:49:22 LINING SEWER [facility]-17136 Level 3 Est. Patient 21:30:19 LINING SEWER Alina Castaneda MD [facility]-44117 Level 4 Est. Patient 17:04:11 LINING SEWER [facility]-02635 Level 3 Est. Patient 15:34:11 LINING SEWER [facility]-41179 Level 2 Est. Patient 12:51:58 LINING SEWER Alina Castaneda MD [facility]-70762 Level 3 Est. Patient 13:20:01 LINING SEWER Alina Castaneda MD [facility]-57996 Level 3 Est. Patient 09:23:35 CDT Alina Castaneda MD PhD [facility] Procedures Code Procedure Name Date Entry Date Standard Description CPT-50874 Bladder Scan 14:39:01 LINING SEWER CPT-TCMM Transitional Care Mgmt-Moderate 10:30:19 LINING SEWER CPT-80540 Bladder Scan 12:36:44 CDT CPT-44452 Bladder Scan 21:54:06 CDT CPT-G0008 Administration of Influenza Virus Vaccine 13:05:26 CDT CPT-47871 Fluzone Quadrivalent Intramuscular Suspension 0.5 ML 13: 05:26 CDT CPT-60134 Administration single or combination vaccine inc oral 11 :49:51 CDT CPT-91593 Pneumovax 11:49:51 CDT CPT-80583 Ribs unilateral 2V 12:37:22 LINING SEWER CPT-90633 Chest 2V Frontal and Lat 17:15:26 CDT CPT-46336 Abx/Therapy Injection 18:54:02 CDT CPT-J0696 Rocephin 1000 mg (Ceftriaxone) 16:00:32 CDT CPT-81792 Chest 2V Frontal and Lat 15:26:45 CDT CPT-52339 Chest 2V Frontal and Lat 10:23:27 CDT CPT-40296 Venipuncture Draw Fee 10:11:00 CDT CPT-64825 Administration single or combination vaccine inc oral 11 :56:38 CDT CPT-15506 Influenza split virus > age 3 11:56:38 CDT CPT-89196 Venipuncture Draw Fee 08:49:54 LINING SEWER CPT-24481 EKG Trac and Interp 17:54:19 LINING SEWER
--- OUTSIDE RECORDS SUMMARY | 2018-07-02 16:52 | XMS REPORT | Clinical Summary ---
Author Author Admin, TERELL Organization [facility] [employer] Address Unknown Phone Unavailable Allergies, Adverse Reactions, 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 Erazo SLIDE ATTENDANT Benign paroxysmal positional vertigo Vertigo, benign paroxysmal position 386.11 Inactive Mima Erazo SLIDE ATTENDANT Benign paroxysmal positional vertigo High-risk sexual behavior V69.2 Active Alina Castaneda MD PhD High-risk sexual behavior Erectile dysfunction 302.72 Active Alina Castaneda MD PhD Psychosexual dysfunction with inhibited sexual excitement Constipation 564.00 Active Alina Castaneda MD PhD Constipation, unspecified Skin lesion 709.9 Active Alina Castaneda MD PhD Unspecified disorder of skin and subcutaneous tissue Malaise and fatigue 780.79 Active Cherelle Speaks SLIDE ATTENDANT Other malaise and fatigue Diarrhea 787.91 Active Cherelle Speaks SLIDE ATTENDANT Diarrhea PHARYNGITIS 462 Active Cherelle Speaks SLIDE ATTENDANT Acute pharyngitis Colitis 558.9 Active Mima Erazo SLIDE ATTENDANT Other and unspecified noninfectious gastroenteritis and [...] LANCETS 30G MISC 3x a day LANCETS 62680716630 Active Marvel MARROQUIN Active TRUE METRIX METER W/DEVICE KIT Check blood sugars 3x/day BLOOD GLUCOSE MONITORING SUPPL 28144429882 Active Marvel MARROQUIN Active TRUE METRIX BLOOD GLUCOSE TEST INVITR STRP Check blood sugars 3x/day. GLUCOSE BLOOD 77009201929 Active Maljohn Mackenzieglari VIDEO GAME PRODUCER Active VITAMIN D 2000 UNIT ORAL CAPS Take one by mouth daily CHOLECALCIFEROL 87912394625 Active Mima Yokum SLIDE ATTENDANT Active LATUDA 60 MG ORAL TABS Take one by mouth daily LURASIDONE HCL 40516519716 No Longer Active Mima Yokum SLIDE ATTENDANT Active HUMALOG KWIKPEN 100 UNIT/ML SC SOPN sliding scale if needed INSULIN LISPRO (HUMAN) 86888605700 Active Mima Yokum SLIDE ATTENDANT Active MORPHINE SULFATE 30 MG ORAL TABS by mouth twice a day MORPHINE SULFATE 49930431083 Active Mima Fierroum SLIDE ATTENDANT Active TRAZODONE HCL 100 MG TABS 1 every night to prevent headaches TRAZODONE HCL 82639807186 Active Gabrielle Madl [employer]CH SERVICES MANAGER Active LATUDA 60 MG ORAL TABS 1 tab daily LURASIDONE HCL 74500057174 Active Gabrielle Madl [employer]CH SERVICES MANAGER Active CLONAZEPAM 1 MG TABS 1 pill by mouth three times daily CLONAZEPAM 83256907614 Active Gabrielle Madl BRANCH SERVICES MANAGER Active [facility] MILK OF MAGNESIA 400 MG/5ML ORAL SUSP 30ml by mouth bid prn MAGNESIUM HYDROXIDE 76696971697 Active Mason Loredo MD Active TYLENOL 8 HOUR 650 MG ORAL CR-TABS 1 tab QID prn ACETAMINOPHEN 99303283183 Active Mason Loredo MD Active MYLANTA GAS RELIEF MAXIMUM STR 125 MG ORAL CAPS 30cc every 4 hours prn 12/01 SIMETHICONE 99357071826 Active Mason Loredo MD Active IMODIUM A-D 2 MG ORAL TABS 1 tab QID as needed LOPERAMIDE HCL 97348403016 Active Mason Loredo MD Active FLUVOXAMINE MALEATE 50 MG ORAL TABS 1 tab by mouth daily FLUVOXAMINE MALEATE 64559198301 Active Mason Loredo MD Active TRAVATAN Z 0.004 % SOLN 1 gtt each eye daily TRAVOPROST 04726648151 No Longer Active Mason Loredo MD Active LISINOPRIL 20 MG TABS 1 BID LISINOPRIL 24081279575 No Longer Active Mason Loredo MD Active LEVEMIR FLEXTOUCH 100 UNIT/ML SC SOPN 60 units SQ each evening, for diabetes INSULIN DETEMIR 70943415003 Active Crystal Nicholson Active ZOLPIDEM TARTRATE 10 MG TABS take at bedtime ZOLPIDEM TARTRATE 72622854675 No Longer Active Mason Loredo MD Active HYDROCODONE-ACETAMINOPHEN 5-325 MG TABS 2 tabs by mouth three times daily for pain HYDROCODONE-ACETAMINOPHEN 68458530642 No Longer Active Mason Loredo MD Active ZOFRAN 4 MG TABS 1 po q4hr PRN Nausea ONDANSETRON HCL 41472647225 No Longer Active Mason Loredo MD Active LOMOTIL 2.5-0.025 MG ORAL TABS take 1-2 tabs PO after each stool, no more than 8 in 24 hours DIPHENOXYLATE-ATROPINE 50864266631 No Longer Active Mason Loredo MD Active COLACE 100 MG CAPS 1 pill by mouth twice daily, for constipation DOCUSATE SODIUM 04391995249 No Longer Active Mimacecily Erazo APRN Active FLONASE ALLERGY RELIEF 50 MCG/ACT NASAL SUSP One spray each nostril BID x 1 week then daily FLUTICASONE PROPIONATE 80332122958 Active Mimacecily Fierroum SLIDE ATTENDANT Active BD PEN NEEDLE MINI U/F 31G X 5 MM MISC 4 a day INSULIN PEN NEEDLE 42528277156 Active Maljohn Ziglari VIDEO GAME PRODUCER Active AMITIZA 24 MCG ORAL CAPS Take one capsule BID for constipation LUBIPROSTONE 24650404742 Active Mima Yokum SLIDE ATTENDANT Active TRUEPLUS LANCETS 30G MISC 3 a day LANCETS 05476392315 Active Maljohn Ziglari VIDEO GAME PRODUCER Active TOLTERODINE TARTRATE 2 MG TABS 1 pill twice daily, for bladder TOLTERODINE TARTRATE 24883911568 No Longer Active Vanessa Hickey MD Active AMITIZA 24 MCG ORAL CAPS Take one capsule BID for constipation. LUBIPROSTONE 31647434363 No Longer Active Vanessa Hickey MD Active FLUVOXAMINE MALEATE 100 MG ORAL TABS take one tab every AM et HS, and take 1/ 2 tab at noon FLUVOXAMINE MALEATE 70474052832 Active Grace ROJAS Active METOPROLOL SUCCINATE 100 MG [id number] 1 by mouth daily for blood pressure METOPROLOL SUCCINATE 92254682922 No Longer Active Grace Azam RMA Active METFORMIN HCL ER 500 MG [id number]-JCD Take three tablets by mouth everyday METFORMIN HCL 53557952028 No Longer Active Grace Azam RMA Active LOVAZA 1 GM CAPS 4 daily (for triglycerides) OMEGA-3- ACID ETHYL ESTERS 07227776901 No Longer Active Grace Azam RMA Active TRAZODONE HCL 100 MG ORAL TABS 1 tab by mouth for sleep TRAZODONE HCL 29476946688 No Longer Active Grace Azam RMA Active NOVOFINE 32G X 6 MM MISC use one four times per day INSULIN PEN NEEDLE 96416026522 No Longer Active Grace Azam RMA Active BACTROBAN 2 % CREAM Apply to affected area BID for up to 10 days MUPIROCIN CALCIUM 05296661222 No Longer Active Grace Azam RMA Active KEFLEX 500 MG CAP 1 po BID x 7 days CEPHALEXIN 20167511126 No Longer Active Cherelle Avila SLIDE ATTENDANT Active FLUVOXAMINE MALEATE 100 MG TABS Take one (1) tablet by mouth am, 1/2 at noon FLUVOXAMINE MALEATE 87771913379 No Longer Active Mima Erazo APRN Active CORICIDIN HBP CONGESTION/COUGH 10-200 MG ORAL CAPS Take as directed on box as needed for cold/flu symptoms DEXTROMETHORPHAN-GUAIFENESIN 53213774212 Active Cherelle Avila SLIDE ATTENDANT Active OMEGA-3 300 MG ORAL CAPS 4 caps by mouth daily OMEGA-3 FATTY ACIDS 57668852584 Active Mima Erazo SLIDE ATTENDANT Active FLUVOXAMINE MALEATE 100 MG ORAL TABS Take 1/2 tab at noon FLUVOXAMINE MALEATE 09171403902 No Longer Active Cherelle Avila SLIDE ATTENDANT Active [facility] LUBRICANT EYE DROPS 0.4-0.3 % OPHTH SOLN POLYETHYL GLYCOL-PROPYL GLYCOL 44626159753 Active Mimacecily Erazo APRN Active MIRALAX POWD 17g by mouth daily, for constipation POLYETHYLENE GLYCOL 3350 91829542777 Active Alina Castaneda MD PhD Active TRUETEST TEST STRP check blood sugars 3x/day GLUCOSE BLOOD 76028409786 Active Maljohn Ziglari VIDEO GAME PRODUCER Active ACCU-CHEK ROSA UZMA Use device to check blood sugars BLOOD GLUCOSE MONITORING SUPPL 50936054595 No Longer Active Maliheh Ziglari VIDEO GAME PRODUCER Active ACCU-CHEK ROSA INVITR STRP use strips with device to check blood sugars 3 times daily GLUCOSE BLOOD 85906095870 No Longer Active Mallashondaeh 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 VIDEO GAME PRODUCER Active VERAPAMIL HCL ER 180 MG ORAL CR-TABS 1 pill by mouth twice daily, for migraine prevention VERAPAMIL HCL 35870275351 Active Mima Erazo SLIDE ATTENDANT Active CYCLOBENZAPRINE HCL 10 MG TABS 1 tablet by mouth three times daily, scheduled CYCLOBENZAPRINE HCL 54584717643 No Longer Active Alina Castaneda MD PhD Active HUMALOG 100 UNIT/ML SOLN Take 20 units with breakfast, 10u with lunch and suppetr. INSULIN LISPRO (HUMAN) 03069156287 No Longer Active Alina Castaneda MD PhD Active TRUETEST TEST STRP check sugars 4x/day GLUCOSE BLOOD 95276625811 No Longer Active Alina Castaneda MD PhD Active MORPHINE SULFATE 30 MG TABS 1 pill by mouth twice daily, for pain MORPHINE SULFATE 74055128299 No Longer Active Mason Loredo MD Active ACYCLOVIR 400 MG ORAL TABS 1 pill three times daily x 5 days, for cold sore outbreak ACYCLOVIR 95035247182 No Longer Active Alina Castaneda MD PhD Active PENICILLIN V POTASSIUM 500 MG TABS 1 pill by mouth three times daily PENICILLIN V POTASSIUM 27568028091 No Longer Active Alina Castaneda MD PhD Active UROXATRAL 10 MG [id number] Take 1 tablet by mouth daily ALFUZOSIN HCL 34236234802 No Longer Active Alina Castaneda MD PhD Active THIOTHIXENE 5 MG CAPS by mouth twice a day THIOTHIXENE 88784187151 No Longer Active Alina Castaneda MD PhD Active ZYPREXA 7.5 MG TABS 1 at HS OLANZAPINE 11431622386 No Longer Active Alina Castaneda MD PhD Active BD INSULIN SYRINGE 28G X 1/2" 1 ML MISC 1 four times per day INSULIN SYRINGE-NEEDLE U-100 22377631723 Active Maljohn Ziglari VIDEO GAME PRODUCER Active DETROL LA 4 MG [id number] Take 1 tablet by mouth daily TOLTERODINE TARTRATE 24451632261 No Longer Active Alina Castaneda MD PhD Active TERESE CONTOUR TEST STRP monitor blood sugars 3x/day GLUCOSE BLOOD 49771271890 No Longer Active Alina Castaneda MD PhD Active EQL TRUETEST TEST STRP Test blood sugar TID GLUCOSE BLOOD 18110409488 No Longer Active Alina Castaneda MD PhD Active FLUTICASONE PROPIONATE 50 MCG/ACT SUSP 2 sprays each nostril qDay x 30 days FLUTICASONE PROPIONATE 80112403767 No Longer Active Alina Castaneda MD PhD Active IBUPROFEN 200 MG TABS 1 Q 6 hr. PRN IBUPROFEN 58042799600 No Longer Active Alina Castaneda MD PhD Active NIACIN ER 500 MG CR-TABS 4 qHS (for triglycerides) NIACIN 83834006468 No Longer Active Alina Castaneda MD PhD Active ALFUZOSIN HCL ER 10 MG [id number] 1 tablet daily ALFUZOSIN HCL 38294432391 Active Mima Yokum SLIDE ATTENDANT Active SAPHRIS 5 MG SUBL by mouth twice a day ASENAPINE MALEATE 48686716667 No Longer Active Marvel Mackenzieglari VIDEO GAME PRODUCER Active ACETAMINOPHEN 500 MG TABS 2 Q 6 hr. PRN ACETAMINOPHEN 62332609509 No Longer Active Maliheh Ziglari VIDEO GAME PRODUCER Active ORPHENADRINE CITRATE ER 100 MG [id number]-ZZW 1 every 12 hr. as needed ORPHENADRINE CITRATE 13165996654 No Longer Active Alina Castaneda MD PhD Active NIACIN CR 500 MG CR-TABS 2 qHS NIACIN 09833791779 No Longer Active Alina Castaneda MD PhD Active AMOXICILLIN 500 MG CAPS 2 po BID x 10 days AMOXICILLIN 31850521034 No Longer Active Alina Castaneda MD PhD Active HYDROCODONE-ACETAMINOPHEN 7.5-325 MG TABS 1 four times a day as needed for pain HYDROCODONE-ACETAMINOPHEN 60859405545 No Longer Active Alina Castaneda MD PhD Active DOXEPIN HCL 10 MG CAPS Take 1 tablet by mouth daily DOXEPIN HCL 52524974411 No Longer Active Salina Han A Active NAVANE 10 MG CAPS 1/2 tablet twice a day THIOTHIXENE No Longer Active Salina ROBBINSA Active CYCLOBENZAPRINE HCL 10 MG TABS 1/2 tablet by mouth every 8 hours as needed for muscle spasms CYCLOBENZAPRINE HCL 91832830040 No Longer Active Alina Castaneda MD PhD Active BACTROBAN 2 % CREAM apply to ear and nose twice daily MUPIROCIN CALCIUM 92841507373 No Longer Active Alina Castaneda MD PhD Active HYDROCODONE-ACETAMINOPHEN 5-325 MG TABS take one tablet by mouth every four hours as needed for pain HYDROCODONE-ACETAMINOPHEN 86309638555 No Longer Active Alina Castaneda MD PhD Active ZYPREXA 5 MG TABS take one tablet by mouth every evening OLANZAPINE 59301956984 No Longer Active Alina Castaneda MD PhD Active ALBUTEROL SULFATE 0.083 % NEBU SOLN one vial per nebulizer TID and PRN cough/ soa ALBUTEROL SULFATE 20260155364 No Longer Active Alina Castaneda MD PhD Active GUAIFENESIN 600 MG AI65Z-GXM 1 tablet by mouth twice daily if needed for cough GUAIFENESIN 46133537304 No Longer Active Marvel MARROQUIN Active AZITHROMYCIN 500 MG SOLR 1 po q day AZITHROMYCIN 45623221298 No Longer Active Alina Castaneda MD PhD Active PROMETHAZINE-CODEINE 6.25-10 MG/5ML SYRP 1 tsp po q 6 hours prn cough PROMETHAZINE-CODEINE 26891404135 No Longer Active Alina Castaneda MD PhD Active CEFDINIR 300 MG CAPS by mouth twice a day CEFDINIR 75637927775 No Longer Active Alina Castaneda MD PhD Active METFORMIN HCL 500 MG [id number] Take 3 tablets by mouth everyday METFORMIN HCL 50075259395 No Longer Active Alina Castaneda MD PhD Active LEVEMIR 100 UNIT/ML SOLN 90 units SQ qHS INSULIN DETEMIR 38125983017 No Longer Active Marvel MARROQUIN Active TOPROL XL 100 MG [id number]-RWL 1 @ HS METOPROLOL SUCCINATE 04805119406 No Longer Active Marvel MARROQUIN Active ALLOPURINOL 300 MG TABS Take one by mouth daily ALLOPURINOL 25984495222 Active Mima Jeffliudmila SLIDE ATTENDANT Active ZYPREXA 10 MG TABS Take one by mouth daily OLANZAPINE 54831109000 No Longer Active Alina Castaneda MD PhD Active NOVOLOG 100 UNIT/ML SOLN 40 units with every meal INSULIN ASPART 79200100974 No Longer Active Alina Castaneda MD PhD Active VERAPAMIL HCL CR 120 MG TAB CR 1 qPM VERAPAMIL HCL 31608213461 No Longer Active Salina Han [facility] Active ZYPREXA 15 MG TABS Take 1 tablet by mouth daily OLANZAPINE 17459103969 No Longer Active Marvel MARROQUIN Active ALBUTEROL SULFATE (2.5 MG/3ML) 0.083% NEBU 1 neb tid and prn cough ALBUTEROL SULFATE 00771563905 No Longer Active Alina Castaneda MD PhD Active LANTUS 100 UNIT/ML SOLN 60 units sq q hs INSULIN GLARGINE 87883923999 No Longer Active CRYSTAL Suarez Active ALBUTEROL SULFATE (2.5 MG/3ML) 0.083% NEBU 1 neb tid and prn cough ALBUTEROL SULFATE (2.5 MG/3ML) 0.083% NEBU 235155 ALBUTEROL SULFATE Inactive ZYPREXA 15 MG TABS Take 1 tablet by mouth daily ZYPREXA 15 MG TABS 633330 OLANZAPINE Inactive VERAPAMIL HCL CR 120 MG TAB CR 1 qPM VERAPAMIL HCL CR 120 MG TAB CR VERAPAMIL HCL Inactive ZYPREXA 10 MG TABS Take one by mouth daily ZYPREXA 10 MG TABS 513738 OLANZAPINE Inactive TOPROL XL 100 MG [id number] 1 @ HS TOPROL XL 100 MG [id number]-CGD METOPROLOL SUCCINATE Inactive LEVEMIR 100 UNIT/ML SOLN 90 units SQ qHS LEVEMIR 100 UNIT/ML SOLN INSULIN DETEMIR Inactive PROMETHAZINE-CODEINE 6.25-10 MG/5ML SYRP 1 tsp po q 6 hours prn cough PROMETHAZINE-CODEINE 6.25-10 MG/5ML SYRP 177254 PROMETHAZINE- CODEINE Inactive GUAIFENESIN 600 MG ST80X-IQN 1 tablet by mouth twice daily if needed for cough GUAIFENESIN 600 MG MP85T-IJC GUAIFENESIN Inactive ALBUTEROL SULFATE 0.083 % NEBU SOLN one vial per nebulizer TID and PRN cough/ soa ALBUTEROL SULFATE 0.083 % NEBU SOLN 588108 ALBUTEROL SULFATE Inactive ZYPREXA 5 MG TABS take one tablet by mouth every evening ZYPREXA 5 MG TABS 053999 OLANZAPINE Inactive HYDROCODONE-ACETAMINOPHEN 5-325 MG TABS take one tablet by mouth every four hours as needed for pain HYDROCODONE-ACETAMINOPHEN 5-325 MG TABS 210674 HYDROCODONE-ACETAMINOPHEN Inactive BACTROBAN 2 % CREAM apply to ear and nose twice daily BACTROBAN 2 % CREAM 393152 MUPIROCIN CALCIUM Inactive CYCLOBENZAPRINE HCL 10 MG TABS 1/2 tablet by mouth every 8 hours as needed for muscle spasms CYCLOBENZAPRINE HCL 10 MG TABS 841428 CYCLOBENZAPRINE HCL Inactive NAVANE 10 MG CAPS 1/2 tablet twice a day NAVANE 10 MG CAPS THIOTHIXENE Inactive DOXEPIN HCL 10 MG CAPS Take 1 tablet by mouth daily DOXEPIN HCL 10 MG CAPS 7077594 DOXEPIN HCL Inactive HYDROCODONE-ACETAMINOPHEN 7.5-325 MG TABS 1 four times a day as needed for pain HYDROCODONE-ACETAMINOPHEN 7.5-325 MG TABS 397039 HYDROCODONE-ACETAMINOPHEN Inactive NIACIN CR 500 MG CR-TABS 2 qHS NIACIN CR 500 MG CR- TABS NIACIN Inactive ORPHENADRINE CITRATE ER 100 MG SP03U-CRP 1 every 12 hr. as needed ORPHENADRINE CITRATE ER 100 MG [id number] ORPHENADRINE CITRATE Inactive ACETAMINOPHEN 500 MG TABS 2 Q 6 hr. PRN ACETAMINOPHEN 500 MG TABS 388454 ACETAMINOPHEN Inactive SAPHRIS 5 MG SUBL by mouth twice a day SAPHRIS 5 MG SUBL ASENAPINE MALEATE Inactive NIACIN ER 500 MG CR-TABS 4 qHS (for triglycerides) NIACIN ER 500 MG CR-TABS NIACIN Inactive IBUPROFEN 200 MG TABS 1 Q 6 hr. PRN IBUPROFEN 200 MG TABS 043508 IBUPROFEN Inactive FLUTICASONE PROPIONATE 50 MCG/ACT SUSP 2 sprays each nostril qDay x 30 days FLUTICASONE PROPIONATE 50 MCG/ACT SUSP 2650179 FLUTICASONE PROPIONATE Inactive EQL TRUETEST TEST STRP Test blood sugar TID EQL TRUETEST TEST STRP GLUCOSE BLOOD Inactive TERESE CONTOUR TEST STRP monitor blood sugars 3x/day TERESE CONTOUR TEST STRP GLUCOSE BLOOD Inactive DETROL LA 4 MG [id number] Take 1 tablet by mouth daily DETROL LA 4 MG [id number] TOLTERODINE TARTRATE Inactive ZYPREXA 7.5 MG TABS 1 at HS ZYPREXA 7.5 MG TABS 331052 OLANZAPINE Inactive THIOTHIXENE 5 MG CAPS by mouth twice a day THIOTHIXENE 5 MG CAPS 928930 THIOTHIXENE Inactive UROXATRAL 10 MG [id number] Take 1 tablet by mouth daily UROXATRAL 10 MG [id number]-DMI ALFUZOSIN HCL Inactive ACYCLOVIR 400 MG ORAL TABS 1 pill three times daily x 5 days, for cold sore outbreak ACYCLOVIR 400 MG ORAL TABS 764332 ACYCLOVIR Inactive TRUETEST TEST STRP check sugars 4x/day TRUETEST TEST STRP GLUCOSE BLOOD Inactive HUMALOG 100 UNIT/ML SOLN Take 20 units with breakfast, 10u with lunch and suppetr. HUMALOG 100 UNIT/ML SOLN INSULIN LISPRO ( HUMAN) Inactive CYCLOBENZAPRINE HCL 10 MG TABS 1 tablet by mouth three times daily, scheduled CYCLOBENZAPRINE HCL 10 MG TABS 645070 CYCLOBENZAPRINE HCL Inactive ACCU-CHEK ROSA INVITR STRP use strips with device to check blood sugars 3 times daily ACCU-CHEK ROSA INVITR STRP GLUCOSE BLOOD Inactive ACCU-CHEK ROSA UZMA Use device to check blood sugars ACCU-CHEK ROSA UZMA BLOOD GLUCOSE MONITORING SUPPL Inactive FLUVOXAMINE MALEATE 100 MG ORAL TABS Take 1/2 tab at noon FLUVOXAMINE MALEATE 100 MG ORAL TABS 505510 FLUVOXAMINE MALEATE Inactive FLUVOXAMINE MALEATE 100 MG TABS Take one (1) tablet by mouth am, 1/2 at noon FLUVOXAMINE MALEATE 100 MG TABS 502059 FLUVOXAMINE MALEATE Inactive BACTROBAN 2 % CREAM Apply to affected area BID for up to 10 days BACTROBAN 2 % CREAM 565000 MUPIROCIN CALCIUM Inactive NOVOFINE 32G X 6 MM MISC use one four times per day NOVOFINE 32G X 6 MM MISC INSULIN PEN NEEDLE Inactive TRAZODONE HCL 100 MG ORAL TABS 1 tab by mouth for sleep TRAZODONE HCL 100 MG ORAL TABS 675528 TRAZODONE HCL Inactive LOVAZA 1 GM CAPS 4 daily (for triglycerides) LOVAZA 1 GM CAPS 429204 [id number]-9-BTZG ETHYL ESTERS Inactive METFORMIN HCL ER 500 MG [id number]-XMV Take three tablets by mouth everyday METFORMIN HCL ER 500 MG LL08O-QEL METFORMIN HCL Inactive METOPROLOL SUCCINATE 100 MG [id number]-TIU 1 by mouth daily for blood pressure METOPROLOL SUCCINATE 100 MG JN95B-RAV METOPROLOL SUCCINATE Inactive AMITIZA 24 MCG ORAL CAPS Take one capsule BID for constipation. AMITIZA 24 MCG ORAL CAPS LUBIPROSTONE Inactive TOLTERODINE TARTRATE 2 MG TABS 1 pill twice daily, for bladder TOLTERODINE TARTRATE 2 MG TABS 328181 TOLTERODINE TARTRATE Inactive COLACE 100 MG CAPS 1 pill by mouth twice daily, for constipation COLACE 100 MG CAPS 2556515 DOCUSATE SODIUM Inactive LOMOTIL 2.5-0.025 MG ORAL TABS take 1-2 tabs PO after each stool, no more than 8 in 24 hours LOMOTIL 2.5-0.025 MG ORAL TABS 3895983 DIPHENOXYLATE-ATROPINE Inactive ZOFRAN 4 MG TABS 1 po q4hr PRN Nausea ZOFRAN 4 MG TABS 286768 ONDANSETRON HCL Inactive HYDROCODONE-ACETAMINOPHEN 5-325 MG TABS 2 tabs by mouth three times daily for pain HYDROCODONE-ACETAMINOPHEN 5-325 MG TABS 672791 HYDROCODONE-ACETAMINOPHEN Inactive ZOLPIDEM TARTRATE 10 MG TABS take at bedtime ZOLPIDEM TARTRATE 10 MG TABS 242291 ZOLPIDEM TARTRATE Inactive LISINOPRIL 20 MG TABS 1 BID LISINOPRIL 20 MG TABS 730113 LISINOPRIL Inactive TRAVATAN Z 0.004 % SOLN 1 gtt each eye daily TRAVATAN Z 0.004 % SOLN TRAVOPROST Inactive LATUDA 60 MG ORAL TABS Take one by mouth daily LATUDA 60 MG ORAL TABS LURASIDONE HCL Inactive CEFDINIR 300 MG CAPS by mouth twice a day CEFDINIR 300 MG CAPS 495095 CEFDINIR Inactive AZITHROMYCIN 500 MG SOLR 1 po q day AZITHROMYCIN 500 MG SOLR 42895955780 AZITHROMYCIN Inactive AMOXICILLIN 500 MG CAPS 2 po BID x 10 days AMOXICILLIN 500 MG CAPS 998243 AMOXICILLIN Inactive PENICILLIN V POTASSIUM 500 MG TABS 1 pill by mouth three times daily PENICILLIN V POTASSIUM 500 MG TABS 109307 PENICILLIN V POTASSIUM Inactive KEFLEX 500 MG CAP 1 po BID x 7 days KEFLEX 500 MG CAP 583635 CEPHALEXIN Inactive Immunizations Vaccine Administration Date Value [...] Fluvirin, Fluarix, Agriflu(>=18 yo)) Fluzone (>3 yrs.) [[id number]] Influenza, seasonal, injectable pneumococcal immunization administered Pneumovax [...] Panel - Chemistry sodium, serum 138 mmol/L 283-597 5604/11/11 potassium, serum 4.7 mmol/L 3.5-5.2 chloride, serum [...] Acid - Chemistry cholesterol, serum 187 mg/dL 343-595 9398/06/14 triglyceride, serum, fasting 246 mg/dL 30-200 HDL [...] negative Encounters Code Encounter Date Provider Facility CPT-51677 Level 3 Est. Patient 16:52:51 CDT Vanessa Hickey MD [facility] CPT-21016 Level 3 Est. Patient 17:40:16 CDT Mima Kacey [facility] CPT-73125 Level 3 Est. Patient 14:34:52 CDT Vanessa Hickey MD [facility]-26509 Level 3 Est. Patient 16:27:51 CDT Mima Kacey [facility] CPT-20227 Level 3 Est. Patient 14:39:00 CONTINUOUS MINING MACHINE LODE MINER Vanessa Hickey MD [facility] CPT-72023 Level 2 Est. Patient 18:43:34 CDT Mima Kacey [facility] CPT-68280 Level 3 Est. Patient 16:22:09 CDT Cherelle Avila [facility] CPT-00737 Level 4 Est. Patient 17:55:14 CDT Mima Kacey [facility] CPT-65805 Level 2 Est. Patient 17:13:21 CDT Alina Castaneda MD [facility] CPT-23222 Level 3 Est. Patient 14:46:15 CDT Vanessa Hickey MD [facility]-48702 Level 3 Est. Patient 09:34:56 CDT Alina Castaneda MD [facility]-00979 Level 3 Est. Patient 21:40:19 CDT Mima Erazo [facility] CPT-00074 Level 3 Est. Patient 09:26:40 CDT Marvel [facility]-51242 Level 3 Est. Patient 12:36:43 CDT Vanessa Hickey MD [facility]-60804 Level 3 Est. Patient 12:57:49 CDT Vanessa Hickey MD [facility]-11293 Level 3 Est. Patient 00:28:25 CDT Alina Castaneda MD [facility]-10334 Level 2 Est. Patient 12:52:14 CDT Alina Castaneda MD [facility]-73104 Level 3 Est. Patient 11:51:18 CONTINUOUS MINING MACHINE LODE MINER Alina Castaneda MD [facility]-42335 Level 3 Est. Patient 10:09:22 CONTINUOUS MINING MACHINE LODE MINER Alina Castaneda MD [facility]-35450 Level 3 Est. Patient 14:36:26 CONTINUOUS MINING MACHINE LODE MINER Marvel [facility]-[address]75 Level 3 Est. Patient 13:34:47 CONTINUOUS MINING MACHINE LODE MINER Alina Castaneda MD [facility]-11574 Level 3 Est. Patient 19:52:08 CONTINUOUS MINING MACHINE LODE MINER Alina Castaneda MD [facility]-72188 Level 3 Est. Patient 10:01:51 CONTINUOUS MINING MACHINE LODE MINER Marvel Charles [facility]-89034 Level 3 Est. Patient 21:54:06 CDT Vanessa Hickey MD [facility]-62165 Level 3 Est. Patient 08:54:46 CDT Alina Castaneda MD [facility]-10919 Level 3 Est. Patient 09:32:11 CDT Marvel [facility] [place]-76107 Level 3 Est. Patient 12:02:49 CDT Alina Castaneda MD [facility]31715 Level 3 Est. Patient 19:17:33 CDT Alina Castaneda MD [facility]-26274 Level 3 Est. Patient 13:19:10 CDT Marvel Charles [facility] [place] [facility] CPT-74746 Level 3 Est. Patient 08:20:05 CDT Alina Castaneda MD [facility]-75104 Level 3 Est. Patient 15:17:18 CDT Alina Castaneda MD [facility]-90520 Level 3 Est. Patient 14:25:36 CONTINUOUS MINING MACHINE LODE MINER Marvel Charles [facility] [facility] CPT-35114 Level 3 Est. Patient 10:09:15 CONTINUOUS MINING MACHINE LODE MINER Marvel [facility] [place]-48677 Level 3 Est. Patient 21:28:43 CDT Alina Castaneda MD [facility]-90800 Level 3 Est. [facility] 15[facility]20[facility] Est. Patient 19:08:12 CDT Alina Castaneda MD [facility]-23752 Level 3 Est. Patient 15:06:39 CDT [facility] Level 4 Est. Patient 17:48:15 CDT Alina Castaneda MD [facility]-49861 Level 3 Est. Patient 14:53:49 CDT Alina Castaneda MD [facility]-68375 Level 3 Est. Patient 09:35:16 CDT Alina Castaneda MD [facility]-85724 Level 3 Est. Patient 12:23:22 CDT Alina Castaneda MD [facility]-07925 Level 3 Est. Patient 16:19:15 CDT Alina Castaneda MD [facility]-94387 Level 3 Est. Patient 21:39:56 CONTINUOUS MINING MACHINE LODE MINER Alina Castaneda MD [facility]-18464 Level 4 Est. Patient 14:12:56 CONTINUOUS MINING MACHINE LODE MINER Alina Castaneda MD [facility]57045 Level 2 Est. Patient 15:34:57 CONTINUOUS MINING MACHINE LODE MINER Alina Castaneda MD [facility]-45727 Level 3 Est. Patient 12:17:04 CONTINUOUS MINING MACHINE LODE MINER Alina Castaneda MD [facility]64533 Level 3 Est. Patient 09:18:18 CONTINUOUS MINING MACHINE LODE MINER Marvel Charles [facility] [place]-[address] Level 2 Est. Patient 21:50:24 CDT Alina Castaneda MD [facility]-44322 Level 3 Est. Patient 09:17:28 CDT Marvel Charles [facility] [place]-77418 Level 4 Est. Patient 18:54:02 CDT Alina Castaneda MD [facility]-58854 Level 3 Est. Patient 10:47:10 CDT Alina Castaneda MD [facility]-85084 Level 3 Est. Patient 09:22:20 CDT Marvel Charles [facility] [place]-00675 Level 3 Est. Patient 16:39:43 CDT Marvel Charles [facility] [place]-99145 Level 3 Est. Patient 16:05:16 CDT Alina Castaneda MD [facility]02642 Level 3 Est. Patient 00:29:15 CDT Alina Castaneda MD [facility]50828 Level 3 Est. Patient 10:49:22 CONTINUOUS MINING MACHINE LODE MINER [facility] CPT-53010 Level 3 Est. Patient 21:30:19 CONTINUOUS MINING MACHINE LODE MINER Alina Castaneda MD PhD [facility] CPT-72401 Level 4 Est. Patient 17:04:11 CONTINUOUS MINING MACHINE LODE MINER [facility]33363 Level 3 Est. Patient 15:34:11 CONTINUOUS MINING MACHINE LODE MINER [facility]19402 Level 2 Est. Patient 12:51:58 CONTINUOUS MINING MACHINE LODE MINER Alina Castaneda MD PhD [facility] CPT-06018 Level 3 Est. Patient 13:20:01 CONTINUOUS MINING MACHINE LODE MINER Alina Castaneda MD PhD [facility] CPT-07787 Level 3 Est. Patient 09:23:35 CDT Alina Castaneda MD PhD [facility] Procedures Code Procedure Name Date Entry Date Standard Description [facility]-TCM Transitional Care Mgmt-Moderate 10:25:31 CDT CPT-96258 Bladder Scan 14:34:53 CDT CPT-09982 Bladder Scan 14:39:01 CONTINUOUS MINING MACHINE LODE MINER [facility] Transitional Care Mgmt-Moderate 10:30:19 CONTINUOUS MINING MACHINE LODE MINER CPT-94598 Bladder Scan 12:36:44 CDT CPT-04416 Bladder Scan 21:54:06 CDT CPT-G0008 Administration of Influenza Virus Vaccine 13:05:26 CDT CPT-93034 Fluzone Quadrivalent Intramuscular Suspension 0.5 ML 13: 05:26 CDT CPT-83579 Administration single or combination vaccine inc oral 11 :49:51 CDT CPT-42522 Pneumovax 11:49:51 CDT CPT-84125 Ribs unilateral 2V 12:37:22 CONTINUOUS MINING MACHINE LODE MINER CPT-20277 Chest 2V Frontal and Lat 17:15:26 CDT CPT-00460 Abx/Therapy Injection 18:54:02 CDT CPT-J0696 Rocephin 1000 mg (Ceftriaxone) 16:00:32 CDT CPT-31532 Chest 2V Frontal and Lat 15:26:45 CDT CPT-20066 Chest 2V Frontal and Lat 10:23:27 CDT CPT-72925 Venipuncture Draw Fee 10:11:00 CDT CPT-73852 Administration single or combination vaccine inc oral 11 :56:38 CDT CPT-63060 Influenza split virus > age 3 11:56:38 CDT CPT-74399 Venipuncture Draw Fee 08:49:54 CONTINUOUS MINING MACHINE LODE MINER CPT-11828 EKG Trac and Interp 17:54:19 CONTINUOUS MINING MACHINE LODE MINER
--- OUTSIDE RECORDS SUMMARY | 2018-07-02 16:53 | XMS REPORT | Clinical Summary ---
Author Author Admin, TERELL Organization [facility] Address Unknown Phone Unavailable Allergies, Adverse Reactions, [...] Diabetes mellitus, type II, uncontrolled 250.02 Inactive Alnia Castaneda MD PhD Diabetes mellitus 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 Erazo SOLAR PHOTOVOLTAIC SYSTEMS ENGINEER Benign paroxysmal positional vertigo Vertigo, benign paroxysmal position 386.11 Inactive Mima Erazo SOLAR PHOTOVOLTAIC SYSTEMS ENGINEER Benign paroxysmal positional vertigo High-risk sexual behavior V69.2 Active Alina Castaneda MD PhD High-risk sexual behavior Erectile dysfunction 302.72 Active Alina Castaneda MD PhD Psychosexual dysfunction with inhibited sexual excitement Constipation 564.00 Active Alina Castaneda MD PhD Constipation, unspecified Skin lesion 709.9 Active Alina Castaneda MD PhD Unspecified disorder of skin and subcutaneous tissue Malaise and fatigue 780.79 Active Cherelle Speaks SOLAR PHOTOVOLTAIC SYSTEMS ENGINEER Other malaise and fatigue Diarrhea 787.91 Active Cherelle Speaks SOLAR PHOTOVOLTAIC SYSTEMS ENGINEER Diarrhea PHARYNGITIS 462 Active Cherelle Speaks SOLAR PHOTOVOLTAIC SYSTEMS ENGINEER Acute pharyngitis Colitis 558.9 Active Mima Erazo SOLAR PHOTOVOLTAIC SYSTEMS ENGINEER Other and unspecified noninfectious gastroenteritis and colitis WOUND, OPEN, NOSE ICD-873.20 Inactive Alina Castaneda MD PhD DIABETES, TYPE 2 ICD-250.00 Inactive Alina Castaneda MD PhD HYPERTENSION ICD-401.9 Inactive Alina Castaneda MD PhD URI ICD-465.9 Inactive Alina Castaneda MD PhD CHEST PAIN ICD-786.50 Inactive Alina Castaneda MD PhD FH STROKE ICD-V17.1 Inactive Marvel Charles CYTOTECHNOLOGIST/CYTOLOGY SUPERVISOR FATIGUE ICD-780.79 Inactive Alina Castaneda MD [...] x 1 week then daily FLUTICASONE PROPIONATE 74042224993 Active Mima Erazo SOLAR PHOTOVOLTAIC SYSTEMS ENGINEER Active BD PEN NEEDLE MINI U/F 31G X 5 MM MISC 4 a day INSULIN PEN NEEDLE 58169229965 Active Marvel Mackenzieglestela CYTOTECHNOLOGIST/CYTOLOGY SUPERVISOR Active AMITIZA 24 MCG ORAL CAPS Take one capsule BID for constipation LUBIPROSTONE 54711305702 Active Mima Erazo SOLAR PHOTOVOL[employer]IC SYSTEMS ENGINEER Active LEVEMIR FLEXTOUCH 100 UNIT/ML SC SOPN 75 units SQ each evening, for diabetes INSULIN DETEMIR 75906754879 Active CRYSTAL Rodrigues Active TRUEPLUS LANCETS 30G MISC 3 a day LANCETS 04290494080 Active Marvel MARROQUIN Active TOLTERODINE TARTRATE 2 MG TABS 1 pill twice daily, for bladder TOLTERODINE TARTRATE 65785600002 No Longer Active Vanessa Hickey MD Active AMITIZA 24 MCG ORAL CAPS Take one capsule BID for constipation. LUBIPROSTONE 81093796295 No Longer Active Vanessa Hickey MD Active LOMOTIL 2.5-0.025 MG ORAL TABS take 1-2 tabs PO after each stool, no more than 8 in 24 hours DIPHENOXYLATE-ATROPINE 35395459739 Active Grace Azam RMA Active FLUVOXAMINE MALEATE 100 MG ORAL TABS take one tab every AM et HS, and take 1/ 2 tab at noon FLUVOXAMINE MALEATE 79593209612 Active Grace Azam RMA Active METOPROLOL SUCCINATE 100 MG [id number] 1 by mouth daily for blood pressure METOPROLOL SUCCINATE 66601235308 No Longer Active Grace Azam RMA Active METFORMIN HCL ER 500 MG [id number] Take three tablets by mouth everyday METFORMIN HCL 39285244959 No Longer Active Grace Azam RMA Active LOVAZA 1 GM CAPS 4 daily (for triglycerides) OMEGA-3- ACID ETHYL ESTERS 34002925290 No Longer Active Grace Azam RMA Active TRAZODONE HCL 100 MG ORAL TABS 1 tab by mouth for sleep TRAZODONE HCL 03993559028 No Longer Active Grace Azam RMA Active NOVOFINE 32G X 6 MM MISC use one four times per day INSULIN PEN NEEDLE 82595300907 No Longer Active Grace Azam RMA Active BACTROBAN 2 % CREAM Apply to affected area BID for up to 10 days MUPIROCIN CALCIUM 51165692469 No Longer Active Grace Azam RMA Active ZOFRAN 4 MG TABS 1 po q4hr PRN Nausea ONDANSETRON HCL 59794911369 Active Salina Ervinford RMA Active KEFLEX 500 MG CAP 1 po BID x 7 days CEPHALEXIN 81493910104 No Longer Active Cherelle Avila SOLAR PHOTOVOLTAIC SYSTEMS ENGINEER Active FLUVOXAMINE MALEATE 100 MG TABS Take one (1) tablet by mouth am, 1/2 at noon FLUVOXAMINE MALEATE 47115738586 No Longer Active Mima Erazo SOLAR PHOTOVOLTAIC SYSTEMS ENGINEER Active CORICIDIN HBP CONGESTION/COUGH 10-200 MG ORAL CAPS Take as directed on box as needed for cold/flu symptoms DEXTROMETHORPHAN-GUAIFENESIN 50289926130 Active Cherelle Avila SOLAR PHOTOVOLTAIC SYSTEMS ENGINEER Active OMEGA-3 300 MG ORAL CAPS 4 caps by mouth daily OMEGA-3 FATTY ACIDS 14405465932 Active Mima Erazo SOLAR PHOTOVOLTAIC SYSTEMS ENGINEER Active FLUVOXAMINE MALEATE 100 MG ORAL TABS Take 1/2 tab at noon FLUVOXAMINE MALEATE 79358482931 No Longer Active Cherelle Avila SOLAR PHOTOVOLTAIC SYSTEMS ENGINEER Active [facility] LUBRICANT EYE DROPS 0.4-0.3 % OPHTH SOLN POLYETHYL GLYCOL-PROPYL GLYCOL 76805175937 Active Mima Erazo SOLAR PHOTOVOLTAIC SYSTEMS ENGINEER Active CLONAZEPAM 1 MG TABS 1/2 pill by mouth three times daily CLONAZEPAM 29609015322 Active Alina Castaneda MD PhD Active MIRALAX POWD 17g by mouth daily, for constipation POLYETHYLENE GLYCOL 3350 18676754933 Active Alina Castaneda MD PhD Active HYDROCODONE-ACETAMINOPHEN 5-325 MG TABS 2 tabs by mouth three times daily for pain HYDROCODONE-ACETAMINOPHEN 84730958389 Active Mima Erazo SOLAR PHOTOVOLTAIC SYSTEMS ENGINEER Active HUMALOG KWIKPEN 100 UNIT/ML SC SOPN 20 units with breakfast, 10 units with lunch, 10 units with dinner, for diabetes INSULIN LISPRO (HUMAN ) 34010688265 Active Alina Castaneda MD PhD Active LATUDA 120 MG ORAL TABS 1 pill by mouth nightly LURASIDONE HCL 72205334512 Active Alina Castaneda MD PhD Active COLACE 100 MG CAPS 1 pill by mouth twice daily, for constipation DOCUSATE SODIUM 97048761780 Active Alina Castaneda MD PhD Active TRUETEST TEST STRP check blood sugars 3x/day GLUCOSE BLOOD 43581952952 Active Marvel MARROQUIN Active ACCU-CHEK ROSA UZMA Use device to check blood sugars BLOOD GLUCOSE MONITORING SUPPL 51662770293 No Longer Active Marvel MARROQUIN Active ACCU-CHEK ROSA INVITR STRP use strips with device to check blood sugars 3 times daily GLUCOSE BLOOD 13856782935 No Longer Active Marvel MARROQUIN Active VERAPAMIL HCL ER 180 MG ORAL CR-TABS 1 pill by mouth twice daily, for migraine prevention VERAPAMIL HCL 03187050534 Active Alina Castaneda MD PhD Active CYCLOBENZAPRINE HCL 10 MG TABS 1 tablet by mouth three times daily, scheduled CYCLOBENZAPRINE HCL 85834396062 No Longer Active Alina Castaneda MD PhD Active HUMALOG 100 UNIT/ML SOLN Take 20 units with breakfast, 10u with lunch and suppetr. INSULIN LISPRO (HUMAN) 49156447739 No Longer Active Alina Castaneda MD PhD Active TRUETEST TEST STRP check sugars 4x/day GLUCOSE BLOOD 31247245152 No Longer Active Alina Castaneda MD PhD Active MORPHINE SULFATE 30 MG TABS 1 pill by mouth twice daily, for pain MORPHINE SULFATE 92549184592 Active Mima Erazo SOLAR PHOTOVOLTAIC SYSTEMS ENGINEER Active ACYCLOVIR 400 MG ORAL TABS 1 pill three times daily x 5 days, for cold sore outbreak ACYCLOVIR 06915017262 No Longer Active Alina Castaneda MD PhD Active PENICILLIN V POTASSIUM 500 MG TABS 1 pill by mouth three times daily PENICILLIN V POTASSIUM 28125744189 No Longer Active Alina Castaneda MD PhD Active UROXATRAL 10 MG [id number]-MDA Take 1 tablet by mouth daily ALFUZOSIN HCL 57250801043 No Longer Active Alina Castaneda MD PhD Active THIOTHIXENE 5 MG CAPS by mouth twice a day THIOTHIXENE 55278472483 No Longer Active Alina Castaneda MD PhD Active ZYPREXA 7.5 MG TABS 1 at HS OLANZAPINE 51063432403 No Longer Active Alina Castaneda MD PhD Active BD INSULIN SYRINGE 28G X 1/2" 1 ML MISC 1 four times per day INSULIN SYRINGE-NEEDLE U-100 96973035345 Active Marvel MARROQUIN Active DETROL LA 4 MG [id number]-YGI Take 1 tablet by mouth daily TOLTERODINE TARTRATE 32426583982 No Longer Active Alina Castaneda MD PhD Active TERESE CONTOUR TEST STRP monitor blood sugars 3x/day GLUCOSE BLOOD 91361143112 No Longer Active Alina Castaneda MD PhD Active EQL TRUETEST TEST STRP Test blood sugar TID GLUCOSE BLOOD 86730415638 No Longer Active Alina Castaneda MD PhD Active FLUTICASONE PROPIONATE 50 MCG/ACT SUSP 2 sprays each nostril qDay x 30 days FLUTICASONE PROPIONATE 84985652695 No Longer Active Alina Castaneda MD PhD Active IBUPROFEN 200 MG TABS 1 Q 6 hr. PRN IBUPROFEN 67867617400 No Longer Active Alina Castaneda MD PhD Active NIACIN ER 500 MG CR-TABS 4 qHS (for triglycerides) NIACIN 15599358069 No Longer Active Alina Castaneda MD PhD Active ALFUZOSIN HCL ER 10 MG [id number] 1 tablet daily ALFUZOSIN HCL 22032553864 Active Vanessa Hickey MD Active SAPHRIS 5 MG SUBL by mouth twice a day ASENAPINE MALEATE 20270407640 No Longer Active Marvel MARROQUIN Active ACETAMINOPHEN 500 MG TABS 2 Q 6 hr. PRN ACETAMINOPHEN 20693306037 No Longer Active Marvel MARROQUIN Active ORPHENADRINE CITRATE ER 100 MG [id number]-VAI 1 every 12 hr. as needed ORPHENADRINE CITRATE 28599725931 No Longer Active Alina Castaneda MD PhD Active NIACIN CR 500 MG CR-TABS 2 qHS NIACIN 53652831536 No Longer Active Alina Castaneda MD PhD Active AMOXICILLIN 500 MG CAPS 2 po BID x 10 days AMOXICILLIN 35195029198 No Longer Active Alina Castaneda MD PhD Active HYDROCODONE-ACETAMINOPHEN 7.5-325 MG TABS 1 four times a day as needed for pain HYDROCODONE-ACETAMINOPHEN 53045480550 No Longer Active Alina Castaneda MD PhD Active DOXEPIN HCL 10 MG CAPS Take 1 tablet by mouth daily DOXEPIN HCL 91943993611 No Longer Active Salina Han A Active NAVANE 10 MG CAPS 1/2 tablet twice a day THIOTHIXENE No Longer Active Salina Han A Active CYCLOBENZAPRINE HCL 10 MG TABS 1/2 tablet by mouth every 8 hours as needed for muscle spasms CYCLOBENZAPRINE HCL 80923085442 No Longer Active Alina Castaneda MD PhD Active BACTROBAN 2 % CREAM apply to ear and nose twice daily MUPIROCIN CALCIUM 13444129513 No Longer Active Alina Castaneda MD PhD Active HYDROCODONE-ACETAMINOPHEN 5-325 MG TABS take one tablet by mouth every four hours as needed for pain HYDROCODONE-ACETAMINOPHEN 83868997237 No Longer Active Alina Castaneda MD PhD Active ZOLPIDEM TARTRATE 10 MG TABS take at bedtime ZOLPIDEM TARTRATE 50503303407 Active Alina Castaneda MD PhD Active ZYPREXA 5 MG TABS take one tablet by mouth every evening OLANZAPINE 07236317078 No Longer Active Alina Castaneda MD PhD Active ALBUTEROL SULFATE 0.083 % NEBU SOLN one vial per nebulizer TID and PRN cough/ soa ALBUTEROL SULFATE 03630746563 No Longer Active Alina Castaneda MD PhD Active GUAIFENESIN 600 MG [id number] 1 tablet by mouth twice daily if needed for cough GUAIFENESIN 69338824439 No Longer Active Marvel MARROQUIN Active AZITHROMYCIN 500 MG SOLR 1 po q day AZITHROMYCIN 87200391667 No Longer Active Alina Castaneda MD PhD Active PROMETHAZINE-CODEINE 6.25-10 MG/5ML SYRP 1 tsp po q 6 hours prn cough PROMETHAZINE-CODEINE 12238994546 No Longer Active Alina Castaneda MD PhD Active CEFDINIR 300 MG CAPS by mouth twice a day CEFDINIR 28238628537 No Longer Active Alina Castaneda MD PhD Active METFORMIN HCL 500 MG GC04O-VUJ Take 3 tablets by mouth everyday METFORMIN HCL 77576971347 No Longer Active Alina Castaneda MD PhD Active LEVEMIR 100 UNIT/ML SOLN 90 units SQ qHS INSULIN DETEMIR 70763705119 No Longer Active Marvel MARROQUIN Active TOPROL XL 100 MG [id number] 1 @ HS METOPROLOL SUCCINATE 97966732414 No Longer Active Marvel MARROQUIN Active ALLOPURINOL 300 MG TABS Take one by mouth daily ALLOPURINOL 62168675933 Active Alina Castaneda MD PhD Active ZYPREXA 10 MG TABS Take one by mouth daily OLANZAPINE 00585474617 No Longer Active Alina Castaneda MD PhD Active NOVOLOG 100 UNIT/ML SOLN 40 units with every meal INSULIN ASPART 09934449465 No Longer Active Alina Castaneda MD PhD Active VERAPAMIL HCL CR 120 MG TAB CR 1 qPM VERAPAMIL HCL 81744764293 No Longer Active Salina Emely ROJAS Active ZYPREXA 15 MG TABS Take 1 tablet by mouth daily OLANZAPINE 73768463693 No Longer Active Marvel MARROQUIN Active LISINOPRIL 20 MG TABS 1 BID LISINOPRIL 80939656019 Active Alina Castaneda MD PhD Active ALBUTEROL SULFATE (2.5 MG/3ML) 0.083% NEBU 1 neb tid and prn cough ALBUTEROL SULFATE 71161037331 No Longer Active Alina Castaneda MD PhD Active TRAVATAN Z 0.004 % SOLN 1 gtt each eye daily TRAVOPROST 48603720419 Active CRYSTAL Suarez Active LANTUS 100 UNIT/ML SOLN 60 units sq q hs INSULIN GLARGINE 21254742262 No Longer Active CRYSTAL Suarez Active ALBUTEROL SULFATE (2.5 MG/3ML) 0.083% NEBU 1 neb tid and prn cough ALBUTEROL SULFATE (2.5 MG/3ML) 0.083% NEBU 181089 ALBUTEROL SULFATE Inactive ZYPREXA 15 MG TABS Take 1 tablet by mouth daily ZYPREXA 15 MG TABS 700307 OLANZAPINE Inactive VERAPAMIL HCL CR 120 MG TAB CR 1 qPM VERAPAMIL HCL CR 120 MG TAB CR VERAPAMIL HCL Inactive ZYPREXA 10 MG TABS Take one by mouth daily ZYPREXA 10 MG TABS 455349 OLANZAPINE Inactive TOPROL XL 100 MG [id number] 1 @ HS TOPROL XL 100 MG CX91Z-XVZ METOPROLOL SUCCINATE Inactive LEVEMIR 100 UNIT/ML SOLN 90 units SQ qHS LEVEMIR 100 UNIT/ML SOLN INSULIN DETEMIR Inactive PROMETHAZINE-CODEINE 6.25-10 MG/5ML SYRP 1 tsp po q 6 hours prn cough PROMETHAZINE-CODEINE 6.25-10 MG/5ML SYRP 279950 PROMETHAZINE- CODEINE Inactive GUAIFENESIN 600 MG SE01T-RJH 1 tablet by mouth twice daily if needed for cough GUAIFENESIN 600 MG [id number]-GQI GUAIFENESIN Inactive ALBUTEROL SULFATE 0.083 % NEBU SOLN one vial per nebulizer TID and PRN cough/ soa ALBUTEROL SULFATE 0.083 % NEBU SOLN 981870 ALBUTEROL SULFATE Inactive ZYPREXA 5 MG TABS take one tablet by mouth every evening ZYPREXA 5 MG TABS 112356 OLANZAPINE Inactive HYDROCODONE-ACETAMINOPHEN 5-325 MG TABS take one tablet by mouth every four hours as needed for pain HYDROCODONE-ACETAMINOPHEN 5-325 MG TABS 459197 HYDROCODONE-ACETAMINOPHEN Inactive BACTROBAN 2 % CREAM apply to ear and nose twice daily BACTROBAN 2 % CREAM 153535 MUPIROCIN CALCIUM Inactive CYCLOBENZAPRINE HCL 10 MG TABS 1/2 tablet by mouth every 8 hours as needed for muscle spasms CYCLOBENZAPRINE HCL 10 MG TABS 227267 CYCLOBENZAPRINE HCL Inactive NAVANE 10 MG CAPS 1/2 tablet twice a day NAVANE 10 MG CAPS THIOTHIXENE Inactive DOXEPIN HCL 10 MG CAPS Take 1 tablet by mouth daily DOXEPIN HCL 10 MG CAPS 2509591 DOXEPIN HCL Inactive HYDROCODONE-ACETAMINOPHEN 7.5-325 MG TABS 1 four times a day as needed for pain HYDROCODONE-ACETAMINOPHEN 7.5-325 MG TABS 506266 HYDROCODONE-ACETAMINOPHEN Inactive NIACIN CR 500 MG CR-TABS 2 qHS NIACIN CR 500 MG CR- TABS NIACIN Inactive ORPHENADRINE CITRATE ER 100 MG OS55W-CUA 1 every 12 hr. as needed ORPHENADRINE CITRATE ER 100 MG [id number]-NFY ORPHENADRINE CITRATE Inactive ACETAMINOPHEN 500 MG TABS 2 Q 6 hr. PRN ACETAMINOPHEN 500 MG TABS 602799 ACETAMINOPHEN Inactive SAPHRIS 5 MG SUBL by mouth twice a day SAPHRIS 5 MG SUBL ASENAPINE MALEATE Inactive NIACIN ER 500 MG CR-TABS 4 qHS (for triglycerides) NIACIN ER 500 MG CR-TABS NIACIN Inactive IBUPROFEN 200 MG TABS 1 Q 6 hr. PRN IBUPROFEN 200 MG TABS 770259 IBUPROFEN Inactive FLUTICASONE PROPIONATE 50 MCG/ACT SUSP 2 sprays each nostril qDay x 30 days FLUTICASONE PROPIONATE 50 MCG/ACT SUSP 343017 FLUTICASONE PROPIONATE Inactive EQL TRUETEST TEST STRP Test blood sugar TID EQL TRUETEST TEST STRP GLUCOSE BLOOD Inactive TERESE CONTOUR TEST STRP monitor blood sugars 3x/day TERESE CONTOUR TEST STRP GLUCOSE BLOOD Inactive DETROL LA 4 MG GO38S-UMO Take 1 tablet by mouth daily DETROL LA 4 MG FU90S-WWO TOLTERODINE TARTRATE Inactive ZYPREXA 7.5 MG TABS 1 at HS ZYPREXA 7.5 MG TABS 210471 OLANZAPINE Inactive THIOTHIXENE 5 MG CAPS by mouth twice a day THIOTHIXENE 5 MG CAPS 261010 THIOTHIXENE Inactive UROXATRAL 10 MG VA82P-LXQ Take 1 tablet by mouth daily UROXATRAL 10 MG [id number]-IKX ALFUZOSIN HCL Inactive ACYCLOVIR 400 MG ORAL TABS 1 pill three times daily x 5 days, for cold sore outbreak ACYCLOVIR 400 MG ORAL TABS 899044 ACYCLOVIR Inactive TRUETEST TEST STRP check sugars 4x/day TRUETEST TEST STRP GLUCOSE BLOOD Inactive HUMALOG 100 UNIT/ML SOLN Take 20 units with breakfast, 10u with lunch and suppetr. HUMALOG 100 UNIT/ML SOLN INSULIN LISPRO ( HUMAN) Inactive CYCLOBENZAPRINE HCL 10 MG TABS 1 tablet by mouth three times daily, scheduled CYCLOBENZAPRINE HCL 10 MG TABS 709859 CYCLOBENZAPRINE HCL Inactive ACCU-CHEK ORSA INVITR STRP use strips with device to check blood sugars 3 times daily ACCU-CHEK ROSA INVITR STRP GLUCOSE BLOOD Inactive ACCU-CHEK ROSA UZMA Use device to check blood sugars ACCU-CHEK ROSA UZMA BLOOD GLUCOSE MONITORING SUPPL Inactive FLUVOXAMINE MALEATE 100 MG ORAL TABS Take 1/2 tab at noon FLUVOXAMINE MALEATE 100 MG ORAL TABS 406242 FLUVOXAMINE MALEATE Inactive FLUVOXAMINE MALEATE 100 MG TABS Take one (1) tablet by mouth am, 1/2 at noon FLUVOXAMINE MALEATE 100 MG TABS 862184 FLUVOXAMINE MALEATE Inactive BACTROBAN 2 % CREAM Apply to affected area BID for up to 10 days BACTROBAN 2 % CREAM 434734 MUPIROCIN CALCIUM Inactive NOVOFINE 32G X 6 MM MISC use one four times per day NOVOFINE 32G X 6 MM MISC INSULIN PEN NEEDLE Inactive TRAZODONE HCL 100 MG ORAL TABS 1 tab by mouth for sleep TRAZODONE HCL 100 MG ORAL TABS 916355 TRAZODONE HCL Inactive LOVAZA 1 GM CAPS 4 daily (for triglycerides) LOVAZA 1 GM CAPS 593687 MKMTW-0-IBJP ETHYL ESTERS Inactive METFORMIN HCL ER 500 MG KA65A-DQZ Take three tablets by mouth everyday METFORMIN HCL ER 500 MG VG24J-GQM METFORMIN HCL Inactive METOPROLOL SUCCINATE 100 MG OX42I-ZSD 1 by mouth daily for blood pressure METOPROLOL SUCCINATE 100 MG EY28X-BBY METOPROLOL SUCCINATE Inactive AMITIZA 24 MCG ORAL CAPS Take one capsule BID for constipation. AMITIZA 24 MCG ORAL CAPS LUBIPROSTONE Inactive TOLTERODINE TARTRATE 2 MG TABS 1 pill twice daily, for bladder TOLTERODINE TARTRATE 2 MG TABS 784040 TOLTERODINE TARTRATE Inactive CEFDINIR 300 MG CAPS by mouth twice a day CEFDINIR 300 MG CAPS 782472 CEFDINIR Inactive AZITHROMYCIN 500 MG SOLR 1 po q day AZITHROMYCIN 500 MG SOLR 11388225892 AZITHROMYCIN Inactive AMOXICILLIN 500 MG CAPS 2 po BID x 10 days AMOXICILLIN 500 MG CAPS 335797 AMOXICILLIN Inactive PENICILLIN V POTASSIUM 500 MG TABS 1 pill by mouth three times daily PENICILLIN V POTASSIUM 500 MG TABS 459211 PENICILLIN V POTASSIUM Inactive KEFLEX 500 MG CAP 1 po BID x 7 days KEFLEX 500 MG CAP 822056 CEPHALEXIN Inactive Immunizations Vaccine Administration Date Value [...] Fluvirin, Fluarix, Agriflu(>=18 yo)) Fluzone (>3 yrs.) [[id number]] Influenza, seasonal, injectable pneumococcal immunization administered Pneumovax [...] MICROALBUMIN - Chemistry sodium, serum 137 mmol/L 118-422 0353/05/19 potassium, serum 5.2 mmol/L 3.5-5.2 chloride, serum [...] Panel - Chemistry sodium, serum 137 mmol/L 209-567 8698/10/12 potassium, serum 4.8 mmol/L 3.5-5.2 chloride, serum 102 mmol/L 98-107 carbon dioxide, venous blood 27.6 mmol/L 21.0-32.0 blood glucose 168 mg/dL 65-110 calcium, serum 9.0 mg/dL 8.5-10.1 urea nitrogen, blood 15 mg/dL 7-18 creatinine, serum 1.04 mg/dL 0.55-1.30 sodium, serum 138 mmol/L 671-815 3427/11/11 potassium, serum 4.7 mmol/L 3.5-5.2 chloride, serum [...] % 11.6-14.8 platelet count 240 10^3/MM^3 10*3/mm3 515-889 4074/11/11 leukocyte count, blood 9.6 10^3/MM^3 10*3/mm3 4.6-10.2 [...] 252 10^3/MM^3 10*3/mm3 142-424 Lab Report: Chlamydia/GC APTIMA/25118, HIV-1/2 Agn/Dominga/85068, RPR (DX) W ... - Chemistry hepatitis B surface antigen NON-REACTIVE NON-REACTIVE Lab Report: Chlamydia/GC APTIMA/[id number], HIV-1/2 Agn/Dominga/49474, RPR (DX) W ... - Lab chlamydia DNA probe NOT DETECTED NOT DETECTED Lab Report: Chlamydia/GC APTIMA/[id number], HIV-1/2 Agn/Dominga/21133, RPR (DX) W ... - Microbiology Neisseria gonorrhoeae DNA probe NOT DETECTED NOT DETECTED Lab Report: Chlamydia/GC APTIMA/24322, HIV-1/2 Agn/Dominga/11461, RPR (DX) W ... - Serology rapid plasma reagin antibody titer NON-REACTIVE NON-REACTIVE Lab Report: HGBA1C - Chemistry hemoglobin A1C, blood, as % of total hemoglobin 6.1 % 4.3-6.0 hemoglobin A1C, blood, as % of total hemoglobin 6.3 % 4.3-6.0 Lab Report: Lipid Panel, HEPATIC PANEL, MICROALBUMIN, CBC - Chemistry albumin/creatinine ratio, urine < 30 mg/g mg/g{creat} 0-29 cholesterol, serum 131 mg/dL 325-628 8074/06/03 triglyceride, serum, fasting 383 mg/dL 30-200 HDL [...] Acid - Chemistry cholesterol, serum 142 mg/dL 246-017 2201/06/26 triglyceride, serum, fasting 272 mg/dL 30-200 HDL [...] negative Encounters Code Encounter Date Provider Facility CPT-58411 Level 3 Est. Patient 14:39:00 BLUEPRINT MAKER Vanessa Hickey MD [facility] CPT-26424 Level 2 Est. Patient 18:43:34 CDT Mima Erazo [facility] CPT-04996 Level 3 Est. Patient 16:22:09 CDT Cherelle Avila [facility] CPT-06486 Level 4 Est. Patient 17:55:14 CDT Mima Erazo [facility] CPT-32673 Level 2 Est. Patient 17:13:21 CDT Alina Castaneda MD [facility] CPT-69566 Level 3 Est. Patient 14:46:15 CDT Vanessa Hickey MD [facility]-18074 Level 3 Est. Patient 09:34:56 CDT Alina Castaneda MD [facility]65053 Level 3 Est. Patient 21:40:19 CDT Mima Erazo [facility]-39523 Level 3 Est. Patient 09:26:40 CDT Marvel Charles [facility]-25495 Level 3 Est. Patient 12:36:43 CDT Vanessa Hickey MD [facility]-32763 Level 3 Est. Patient 12:57:49 CDT Vanessa Hickey MD [facility]-13224 Level 3 Est. Patient 00:28:25 CDT Alina Castaneda MD [facility]54426 Level 2 Est. Patient 12:52:14 CDT Alina Castaneda MD [facility]26717 Level 3 Est. Patient 11:51:18 BLUEPRINT MAKER Alina Castaneda MD [facility]44760 Level 3 Est. Patient 10:09:22 BLUEPRINT MAKER Alina Castaneda MD [facility]43023 Level 3 Est. Patient 14:36:26 [facility]-70505 Level 3 Est. Patient 13:34:47 BLUEPRINT MAKER Alina Castaneda MD [facility]85403 Level 3 Est. Patient 19:52:08 BLUEPRINT MAKER Alina Castaneda MD [facility]11647 Level 3 Est. Patient 10:01:51 BLUEPRINT MAKER Marvel Charles [facility]-71055 Level 3 Est. Patient 21:54:06 CDT Vanessa Hickey MD [facility]-27772 Level 3 Est. Patient 08:54:46 CDT Alina Castaneda MD [facility]61728 Level 3 Est. Patient 09:32:11 CDT Marvel Charles [facility]-19275 Level 3 Est. Patient 12:02:49 CDT Alina Castaneda MD [facility]30870 Level 3 Est. Patient 19:17:33 CDT Alina Castaneda MD [facility]-85528 Level 3 Est. Patient 13:19:10 CDT Marvel Gurdeepajayestela [facility]-93986 Level 3 Est. Patient 08:20:05 CDT Alina Castaneda MD [facility]-85875 Level 3 Est. Patient 15:17:18 CDT Alina Castaneda MD [facility]28961 Level 3 Est. Patient 14:25:36 BLUEPRINT MAKER Marvel Charles [facility]-68290 Level 3 Est. Patient 10:09:15 BLUEPRINT MAKER Marvel Charles [facility]-12620 Level 3 Est. Patient 21:28:43 CDT Alina Castaneda MD [facility]-90646 Level 3 Est. Patient 15:20:11 CDT [place] Gurdeepajayestela [facility]-20821 Level 4 Est. Patient 19:08:12 CDT Alina Castaneda MD [facility]-59080 Level 3 Est. Patient 15:06:39 CDT Marvel Araceli [facility]-32934 Level 4 Est. Patient 17:48:15 CDT Alina Castaneda MD [facility]-42530 Level 3 Est. Patient 14:53:49 CDT Alina Castaneda MD [facility]-66567 Level 3 Est. Patient 09:35:16 CDT Alina Castaneda MD [facility]-95264 Level 3 Est. Patient 12:23:22 CDT Alina Castaneda MD [facility]65444 Level 3 Est. Patient 16:19:15 CDT Alina Castaneda MD [facility]-36511 Level 3 Est. Patient 21:39:56 BLUEPRINT MAKER Alina Castaneda MD [facility]-94196 Level 4 Est. Patient 14:12:56 BLUEPRINT MAKER Alina Castaneda MD [facility]-63136 Level 2 Est. Patient 15:34:57 BLUEPRINT MAKER Alina Castaneda MD [facility]-82779 Level 3 Est. Patient 12:17:04 BLUEPRINT MAKER Alina Castaneda MD [facility]-09808 Level 3 Est. Patient 09:18:18 BLUEPRINT MAKER Marvel Charles [facility]-56429 Level 2 Est. Patient 21:50:24 CDT Alina Castaneda MD [facility]-62148 Level 3 Est. Patient 09:17:28 CDT Marvel Charles [facility]-98536 Level 4 Est. Patient 18:54:02 CDT Alina Castaneda MD [facility]-44695 Level 3 Est. Patient 10:47:10 CDT Alina Castaneda MD [facility]-08456 Level 3 Est. Patient 09:22:20 CDT Marvel Charlse [facility] CPT-42298 Level 3 Est. Patient 16:39:43 CDT Marvel Charles [facility]-12038 Level 3 Est. Patient 16:05:16 CDT Alina Castaneda MD [facility]-89260 Level 3 Est. Patient 00:29:15 CDT Alina Castaneda MD [facility] Level 3 Est. Patient 10:49:22 BLUEPRINT [facility]ER [facility] CPT-36217 Level 3 Est. Patient 21:30:19 BLUEPRINT MAKER Alina Castaneda MD [facility] CPT-16310 Level 4 Est. Patient 17:04:11 BLUEPRINT MAKER [facility]252 Level 3 Est. Patient 15:34:11 BLUEPRINT MAKER [facility]52699 Level 2 Est. Patient 12:51:58 BLUEPRINT MAKER Alina Castaneda MD [facility] CPT-72348 Level 3 Est. Patient 13:20:01 BLUEPRINT MAKER Alina Castaneda MD [facility] CPT-58027 Level 3 Est. Patient 09:23:35 CDT Alina Castaneda MD [facility] Procedures Code Procedure Name Date Entry Date Standard Description CPT-97317 Bladder Scan 14:39:01 BLUEPRINT MAKER CPT-TCMM Transitional Care Mgmt-Moderate 10:30:19 BLUEPRINT MAKER CPT-86954 Bladder Scan 12:36:44 CDT CPT-91421 Bladder Scan 21:54:06 CDT CPT-G0008 Administration of Influenza Virus Vaccine 13:05:26 CDT CPT-00651 Fluzone Quadrivalent Intramuscular Suspension 0.5 ML 13: 05:26 CDT CPT-05559 Administration single or combination vaccine inc oral 11 :49:51 CDT CPT-27732 Pneumovax 11:49:51 CDT CPT-90501 Ribs unilateral 2V 12:37:22 BLUEPRINT MAKER CPT-57837 Chest 2V Frontal and Lat 17:15:26 CDT CPT-95008 Abx/Therapy Injection 18:54:02 CDT CPT-J0696 Rocephin 1000 mg (Ceftriaxone) 16:00:32 CDT CPT-89840 Chest 2V Frontal and Lat 15:26:45 CDT CPT-92742 Chest 2V Frontal and Lat 10:23:27 CDT CPT-02726 Venipuncture Draw Fee 10:11:00 CDT CPT-54259 Administration single or combination vaccine inc oral 11 :56:38 CDT CPT-98561 Influenza split virus > age 3 11:56:38 CDT CPT-34934 Venipuncture Draw Fee 08:49:54 BLUEPRINT MAKER CPT-22584 EKG Trac and Interp 17:54:19 BLUEPRINT MAKER
--- OUTSIDE RECORDS SUMMARY | 2018-07-02 16:55 | XMS REPORT | Clinical Summary ---
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 FORESTRY WORKER Benign paroxysmal positional vertigo High-risk sexual behavior V69.2 Active Alina Castaneda MD PhD High-risk sexual behavior Erectile dysfunction 302.72 Active Alina Castaneda MD PhD Psychosexual dysfunction with inhibited sexual excitement WOUND, OPEN, NOSE ICD-873.20 Inactive Alina Castaneda MD PhD DIABETES, TYPE 2 ICD-250.00 Inactive Alnia Castaneda MD PhD HYPERTENSION ICD-401.9 Inactive Alina [...] 10u lunch and supper INSULIN LISPRO (HUMAN) 64675390981 Active Marvel Araceli MARROQUIN Active LATUDA 120 MG ORAL TABS 1 pill by mouth nightly LURASIDONE HCL 98977253094 Active Alina Castaneda MD PhD Active COLACE 100 MG CAPS 1 pill by mouth twice daily, for constipation DOCUSATE SODIUM 89801807857 Active Alina Castaneda MD PhD Active TRUETEST TEST STRP check blood sugars 3x/day GLUCOSE BLOOD 71980447954 Active Malnivia 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 INDUSTRIAL SAFETY AND HEALTH TECHNICIAN Active ACCU-CHEK ROSA UZMA Use device to check blood sugars BLOOD GLUCOSE MONITORING SUPPL 30406951684 No Longer Active Marvel 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 INDUSTRIAL SAFETY AND HEALTH TECHNICIAN Active ACCU-CHEK ROSA INVITR STRP use strips with device to check blood sugars 3 times daily GLUCOSE BLOOD 40950549866 No Longer Active Brooksnivia Araceli MENDOZAP Active VERAPAMIL HCL ER 180 MG ORAL CR-TABS 1 pill by mouth twice daily, for migraine prevention VERAPAMIL HCL 05762466470 Active Alina Castaneda MD PhD Active CYCLOBENZAPRINE HCL 10 MG TABS 1 tablet by mouth three times daily, scheduled CYCLOBENZAPRINE HCL 48390372760 No Longer Active Alina Castaneda MD PhD Active HUMALOG 100 UNIT/ML SOLN Take 20 units with breakfast, 10u with lunch and suppetr. INSULIN LISPRO (HUMAN) 21890326765 No Longer Active Alina Castaneda MD PhD Active TRUETEST TEST STRP check sugars 4x/day GLUCOSE BLOOD 09402163259 No Longer Active Alina Castaneda MD PhD Active MORPHINE SULFATE 30 MG TABS 1 pill by mouth twice daily, for pain MORPHINE SULFATE 05114528008 Active Mason Loredo MD Active ACYCLOVIR 400 MG ORAL TABS 1 pill three times daily x 5 days, for cold sore outbreak ACYCLOVIR 98527964767 No Longer Active Alina Castaneda MD PhD Active PENICILLIN V POTASSIUM 500 MG TABS 1 pill by mouth three times daily PENICILLIN V POTASSIUM 81687308985 No Longer Active Alina Castaneda MD PhD Active UROXATRAL 10 MG HF07F-CHU Take 1 tablet by mouth daily ALFUZOSIN HCL 68866531208 No Longer Active Alina Castaneda MD PhD Active THIOTHIXENE 5 MG CAPS by mouth twice a day THIOTHIXENE 48677293650 No Longer Active Alina Castaneda MD PhD Active ZYPREXA 7.5 MG TABS 1 at HS OLANZAPINE 09073252554 No Longer Active Alina Castaneda MD PhD Active LEVEMIR 100 UNIT/ML SOLN Take 70 u at 7-8pm INSULIN DETEMIR 86271673424 Active Mallashondaeh Ziglari INDUSTRIAL SAFETY AND HEALTH TECHNICIAN Active BD INSULIN SYRINGE 28G X 1/2" 1 ML MISC 1 four times per day INSULIN SYRINGE-NEEDLE U-100 72518568084 Active Maljohn Mackenzieglari INDUSTRIAL SAFETY AND HEALTH TECHNICIAN Active TOLTERODINE TARTRATE 2 MG TABS 1 pill twice daily, for bladder TOLTERODINE TARTRATE 26390434011 Active Alina Castaneda MD PhD Active DETROL LA 4 MG [id number]-PRX Take 1 tablet by mouth daily TOLTERODINE TARTRATE 62627457408 No Longer Active Alina Castaneda MD PhD Active HYDROCODONE-ACETAMINOPHEN 5-325 MG TABS 2 tabs by mouth three times daily as needed for pain HYDROCODONE-ACETAMINOPHEN 49428339944 Active Alina Castaneda MD PhD Active TERESE CONTOUR TEST STRP monitor blood sugars 3x/day GLUCOSE BLOOD 82459387434 No Longer Active Alina Castaneda MD PhD Active EQL TRUETEST TEST STRP Test blood sugar TID GLUCOSE BLOOD 31366236784 No Longer Active Alina Castaneda MD PhD Active FLUTICASONE PROPIONATE 50 MCG/ACT SUSP 2 sprays each nostril qDay x 30 days FLUTICASONE PROPIONATE 51902664201 No Longer Active Alina Castaneda MD PhD Active IBUPROFEN 200 MG TABS 1 Q 6 hr. PRN IBUPROFEN 31833554808 No Longer Active Alina Castaneda MD PhD Active NIACIN ER 500 MG CR-TABS 4 qHS (for triglycerides) NIACIN 15602502811 No Longer Active Alina Castaneda MD PhD Active ALFUZOSIN HCL ER 10 MG [id number]-LOW 1 tablet daily ALFUZOSIN HCL 50962531359 Active Vanessa Hickey MD Active CLONAZEPAM 1 MG TABS 1 pill by mouth three times daily CLONAZEPAM 68454944921 Active Alina Castaneda MD PhD Active LOVAZA 1 GM CAPS 4 daily (for triglycerides) ULIKB-1-HNVM ETHYL ESTERS 49279736743 Active Mao Rodriguez MD Active SAPHRIS 5 MG SUBL by mouth twice a day ASENAPINE MALEATE 49678067847 No Longer Active Marvel MARROQUIN Active ACETAMINOPHEN 500 MG TABS 2 Q 6 hr. PRN ACETAMINOPHEN 43245885498 No Longer Active Marvel MARROQUIN Active ORPHENADRINE CITRATE ER 100 MG [id number]-ZTD 1 every 12 hr. as needed ORPHENADRINE CITRATE 04292938542 No Longer Active lAina Castaneda MD PhD Active NIACIN CR 500 MG CR-TABS 2 qHS NIACIN 09550192011 No Longer Active Alina Castaneda MD PhD Active AMOXICILLIN 500 MG CAPS 2 po BID x 10 days AMOXICILLIN 59077143022 No Longer Active Alina Castaneda MD PhD Active HYDROCODONE-ACETAMINOPHEN 7.5-325 MG TABS 1 four times a day as needed for pain HYDROCODONE-ACETAMINOPHEN 08397139138 No Longer Active Alina Castaneda MD PhD Active METFORMIN HCL ER 500 MG UD14H-REL Take three tablets by mouth everyday METFORMIN HCL 71916777750 Active Marvel MENDOZAP Active DOXEPIN HCL 10 MG CAPS Take 1 tablet by mouth daily DOXEPIN HCL 33032080879 No Longer Active Salina Han [facility] Active NAVANE 10 MG CAPS 1/2 tablet twice a day THIOTHIXENE No Longer Active Salina Han A Active CYCLOBENZAPRINE HCL 10 MG TABS 1/2 tablet by mouth every 8 hours as needed for muscle spasms CYCLOBENZAPRINE HCL 85923972806 No Longer Active Alina Castaneda MD PhD Active BACTROBAN 2 % CREAM apply to ear and nose twice daily MUPIROCIN CALCIUM 36439897139 No Longer Active Alina Castaneda MD PhD Active HYDROCODONE-ACETAMINOPHEN 5-325 MG TABS take one tablet by mouth every four hours as needed for pain HYDROCODONE-ACETAMINOPHEN 37060946309 No Longer Active Alina Castaneda MD PhD Active ZOLPIDEM TARTRATE 10 MG TABS take at bedtime ZOLPIDEM TARTRATE 57730870468 Active Alina Castaneda MD PhD Active ZYPREXA 5 MG TABS take one tablet by mouth every evening OLANZAPINE 00811093202 No Longer Active Alina Castaneda MD PhD Active ALBUTEROL SULFATE 0.083 % NEBU SOLN one vial per nebulizer TID and PRN cough/ soa ALBUTEROL SULFATE 60395964474 No Longer Active Alina Castaneda MD PhD Active GUAIFENESIN 600 MG BE03T-VGK 1 tablet by mouth twice daily if needed for cough GUAIFENESIN 61010339235 No Longer Active Marvel MENDOZAP Active AZITHROMYCIN 500 MG SOLR 1 po q day AZITHROMYCIN 28224907994 No Longer Active Alina Castaneda MD PhD Active METOPROLOL SUCCINATE 100 MG CG96Y-PLS 1 by mouth daily for blood pressure METOPROLOL SUCCINATE 55646056533 Active Alina Castaneda MD PhD Active PROMETHAZINE-CODEINE 6.25-10 MG/5ML SYRP 1 tsp po q 6 hours prn cough PROMETHAZINE-CODEINE 49234385909 No Longer Active Alina Castaneda MD PhD Active CEFDINIR 300 MG CAPS by mouth twice a day CEFDINIR 13341823828 No Longer Active Alina Castaneda MD PhD Active METFORMIN HCL 500 MG XS63B-PPY Take 3 tablets by mouth everyday METFORMIN HCL 80739060450 No Longer Active Alina Castaneda MD PhD Active LEVEMIR 100 UNIT/ML SOLN 90 units SQ qHS INSULIN DETEMIR 56491105406 No Longer Active Marvel MARROQUIN Active TOPROL XL 100 MG ZF41U-LYS 1 @ HS METOPROLOL SUCCINATE 20623323464 No Longer Active Marvel MARROQUIN Active ALLOPURINOL 300 MG TABS Take one by mouth daily ALLOPURINOL 08878438578 Active Alina Castaneda MD PhD Active ZYPREXA 10 MG TABS Take one by mouth daily OLANZAPINE 75192118047 No Longer Active Alina Castaneda MD PhD Active NOVOLOG 100 UNIT/ML SOLN 40 units with every meal INSULIN ASPART 73679849455 No Longer Active Alina Castanead MD PhD Active VERAPAMIL HCL CR 120 MG TAB CR 1 qPM VERAPAMIL HCL 92681576426 No Longer Active Salina Han A Active ZYPREXA 15 MG TABS Take 1 tablet by mouth daily OLANZAPINE 24715800375 No Longer Active Marvel MARROQUIN Active LISINOPRIL 20 MG TABS 1 BID LISINOPRIL 47236592118 Active Alina Castaneda MD PhD Active ALBUTEROL SULFATE (2.5 MG/3ML) 0.083% NEBU 1 neb tid and prn cough ALBUTEROL SULFATE 89785089156 No Longer Active Alina Castaneda MD PhD Active FLUVOXAMINE MALEATE 100 MG TABS Take one (1) tablet by mouth am, 1/2 at noon, 1 pm FLUVOXAMINE MALEATE 02818935803 Active Alina Castaneda MD PhD Active TRAVATAN Z 0.004 % SOLN 1 gtt each eye daily TRAVOPROST 01423745559 Active CRYSTAL Suarez Active LANTUS 100 UNIT/ML SOLN 60 units sq q hs INSULIN GLARGINE 26696608710 No Longer Active CRYSTAL Suarez Active ALBUTEROL SULFATE (2.5 MG/3ML) 0.083% NEBU 1 neb tid and prn cough ALBUTEROL SULFATE (2.5 MG/3ML) 0.083% NEBU 859029 ALBUTEROL SULFATE Inactive ZYPREXA 15 MG TABS Take 1 tablet by mouth daily ZYPREXA 15 MG TABS 600498 OLANZAPINE Inactive VERAPAMIL HCL CR 120 MG TAB CR 1 qPM VERAPAMIL HCL CR 120 MG TAB CR VERAPAMIL HCL Inactive ZYPREXA 10 MG TABS Take one by mouth daily ZYPREXA 10 MG TABS 556524 OLANZAPINE Inactive TOPROL XL 100 MG HL03F-OHZ 1 @ HS TOPROL XL 100 MG PG94T-TOM METOPROLOL SUCCINATE Inactive LEVEMIR 100 UNIT/ML SOLN 90 units SQ qHS LEVEMIR 100 UNIT/ML SOLN INSULIN DETEMIR Inactive PROMETHAZINE-CODEINE 6.25-10 MG/5ML SYRP 1 tsp po q 6 hours prn cough PROMETHAZINE-CODEINE 6.25-10 MG/5ML SYRP 784375 PROMETHAZINE- CODEINE Inactive GUAIFENESIN 600 MG QH38Z-WKG 1 tablet by mouth twice daily if needed for cough GUAIFENESIN 600 MG CG49O-JBR GUAIFENESIN Inactive ALBUTEROL SULFATE 0.083 % NEBU SOLN one vial per nebulizer TID and PRN cough/ soa ALBUTEROL SULFATE 0.083 % NEBU SOLN 236671 ALBUTEROL SULFATE Inactive ZYPREXA 5 MG TABS take one tablet by mouth every evening ZYPREXA 5 MG TABS 922564 OLANZAPINE Inactive HYDROCODONE-ACETAMINOPHEN 5-325 MG TABS take one tablet by mouth every four hours as needed for pain HYDROCODONE-ACETAMINOPHEN 5-325 MG TABS 899304 HYDROCODONE-ACETAMINOPHEN Inactive BACTROBAN 2 % CREAM apply to ear and nose twice daily BACTROBAN 2 % CREAM 570595 MUPIROCIN CALCIUM Inactive CYCLOBENZAPRINE HCL 10 MG TABS 1/2 tablet by mouth every 8 hours as needed for muscle spasms CYCLOBENZAPRINE HCL 10 MG TABS 014748 CYCLOBENZAPRINE HCL Inactive NAVANE 10 MG CAPS 1/2 tablet twice a day NAVANE 10 MG CAPS THIOTHIXENE Inactive DOXEPIN HCL 10 MG CAPS Take 1 tablet by mouth daily DOXEPIN HCL 10 MG CAPS 1365798 DOXEPIN HCL Inactive HYDROCODONE-ACETAMINOPHEN 7.5-325 MG TABS 1 four times a day as needed for pain HYDROCODONE-ACETAMINOPHEN 7.5-325 MG TABS 726119 HYDROCODONE-ACETAMINOPHEN Inactive NIACIN CR 500 MG CR-TABS 2 qHS NIACIN CR 500 MG CR- TABS NIACIN Inactive ORPHENADRINE CITRATE ER 100 MG HG23Q-WJD 1 every 12 hr. as needed ORPHENADRINE CITRATE ER 100 MG DI56B-EYF ORPHENADRINE CITRATE Inactive ACETAMINOPHEN 500 MG TABS 2 Q 6 hr. PRN ACETAMINOPHEN 500 MG TABS 811398 ACETAMINOPHEN Inactive SAPHRIS 5 MG SUBL by mouth twice a day SAPHRIS 5 MG SUBL ASENAPINE MALEATE Inactive NIACIN ER 500 MG CR-TABS 4 qHS (for triglycerides) NIACIN ER 500 MG CR-TABS NIACIN Inactive IBUPROFEN 200 MG TABS 1 Q 6 hr. PRN IBUPROFEN 200 MG TABS 719401 IBUPROFEN Inactive FLUTICASONE PROPIONATE 50 MCG/ACT SUSP 2 sprays each nostril qDay x 30 days FLUTICASONE PROPIONATE 50 MCG/ACT SUSP 959507 FLUTICASONE PROPIONATE Inactive EQL TRUETEST TEST STRP Test blood sugar TID EQL TRUETEST TEST STRP GLUCOSE BLOOD Inactive TERESE CONTOUR TEST STRP monitor blood sugars 3x/day TERESE CONTOUR TEST STRP GLUCOSE BLOOD Inactive DETROL LA 4 MG [id number] Take 1 tablet by mouth daily DETROL LA 4 MG TN11S-HPA TOLTERODINE TARTRATE Inactive ZYPREXA 7.5 MG TABS 1 at HS ZYPREXA 7.5 MG TABS 438559 OLANZAPINE Inactive THIOTHIXENE 5 MG CAPS by mouth twice a day THIOTHIXENE 5 MG CAPS 680559 THIOTHIXENE Inactive UROXATRAL 10 MG CM26L-UTY Take 1 tablet by mouth daily UROXATRAL 10 MG [id number]-MBX ALFUZOSIN HCL Inactive ACYCLOVIR 400 MG ORAL TABS 1 pill three times daily x 5 days, for cold sore outbreak ACYCLOVIR 400 MG ORAL TABS 276425 ACYCLOVIR Inactive TRUETEST TEST STRP check sugars 4x/day TRUETEST TEST STRP GLUCOSE BLOOD Inactive HUMALOG 100 UNIT/ML SOLN Take 20 units with breakfast, 10u with lunch and suppetr. HUMALOG 100 UNIT/ML SOLN INSULIN LISPRO ( HUMAN) Inactive CYCLOBENZAPRINE HCL 10 MG TABS 1 tablet by mouth three times daily, scheduled CYCLOBENZAPRINE HCL 10 MG TABS 122546 CYCLOBENZAPRINE HCL Inactive ACCU-CHEK ROSA INVITR STRP use strips with device to check blood sugars 3 times daily ACCU-CHEK ROSA INVITR STRP GLUCOSE BLOOD Inactive ACCU-CHEK ROSA UZMA Use device to check blood sugars ACCU-CHEK ROSA UZMA BLOOD GLUCOSE MONITORING SUPPL Inactive CEFDINIR 300 MG CAPS by mouth twice a day CEFDINIR 300 MG CAPS 432238 CEFDINIR Inactive AZITHROMYCIN 500 MG SOLR 1 po q day AZITHROMYCIN 500 MG SOLR 240914 AZITHROMYCIN Inactive AMOXICILLIN 500 MG CAPS 2 po BID x 10 days AMOXICILLIN 500 MG CAPS 776329 AMOXICILLIN Inactive PENICILLIN V POTASSIUM 500 MG TABS 1 pill by mouth three times daily PENICILLIN V POTASSIUM 500 MG TABS 609798 PENICILLIN V POTASSIUM Inactive Immunizations Vaccine Administration [...] Fluvirin, Fluarix, Agriflu(>=18 yo)) Fluzone (>3 yrs.) [SSC760] Influenza, seasonal, injectable pneumococcal immunization administered Pneumovax [...] HGBA1C - Chemistry sodium, serum 130 mmol/L 110-866 0969/06/09 potassium, serum 4.0 mmol/L 3.5-5.2 chloride, serum 92 mmol/L 98-107 carbon dioxide, venous blood 22.1 mmol/L 21.0-32.0 blood glucose 60 mg/dL 65-110 calcium, serum 9.5 mg/dL 8.5-10.1 urea nitrogen, blood 14 mg/dL 7-18 creatinine, serum 1.30 mg/dL 0.60-1.30 hemoglobin A1C, blood, as % of total hemoglobin 6.0 % 4.3-6.0 sodium, serum 131 mmol/L 303-193 9108/12/30 potassium, serum 5.0 mmol/L 3.5-5.2 chloride, serum 95 mmol/L 98-107 carbon dioxide, venous blood 26.7 mmol/L 21.0-32.0 blood glucose 112 mg/dL 65-110 calcium, serum 9.2 mg/dL 8.5-10.1 urea nitrogen, blood 12 mg/dL 7-18 creatinine, serum 1.10 mg/dL 0.60-1.30 hemoglobin A1C, blood, as % of total hemoglobin 5.8 % 4.3-6.0 Lab Report: Basic Metabolic Panel, HGBA1C, MICROALBUMIN - Chemistry sodium, serum 137 mmol/L 728-669 8009/05/19 potassium, serum 5.2 mmol/L 3.5-5.2 chloride, serum [...] Panel - Chemistry sodium, serum 127 mmol/L 440-971 2970/10/27 potassium, serum 4.1 mmol/L 3.5-5.2 chloride, serum [...] mg/dL Encounters Code Encounter Date Provider Facility CPT-28538 Level 3 Est. Patient 09:34:56 CDT Alina Castaneda MD [facility] CPT-20718 Level 3 Est. Patient 21:40:19 CDT Mima Erazo APRN [facility] CPT-80712 Level 3 Est. Patient 09:26:40 CDT Marvel MARROQUIN [facility] CPT-93761 Level 3 Est. Patient 12:36:43 CDT Vanessa Hickey MD [facility] CPT-01276 Level 3 Est. Patient 12:57:49 CDT Vanessa Hickey MD [facility] CPT-81652 Level 3 Est. Patient 00:28:25 CDT Alina Castaneda MD [facility] CPT-47167 Level 2 Est. Patient 12:52:14 CDT Alina Castaneda MD [facility] CPT-41389 Level 3 Est. Patient 11:51:18 RADIATION ONCOLOGY MANAGER Alina Castaneda MD PhD [facility]-53879 Level 3 Est. Patient 10:09:22 RADIATION ONCOLOGY MANAGER Alina Castaneda MD [facility]-54072 Level 3 Est. Patient 14:36:26 RADIATION ONCOLOGY MANAGER Marvel Charles [facility]-61847 Level 3 Est. Patient 13:34:47 RADIATION ONCOLOGY MANAGER Alina Castaneda MD [facility]-31278 Level 3 Est. Patient 19:52:08 RADIATION ONCOLOGY MANAGER Alina Castaneda MD [facility]-21398 Level 3 Est. Patient 10:01:51 RADIATION ONCOLOGY MANAGER Brooksjohn Charles [facility]-38951 Level 3 Est. Patient 21:54:06 CDT Vanessa Hickey MD [facility]-71561 Level 3 Est. Patient 08:54:46 CDT Alina Castaneda MD [facility]-08916 Level 3 Est. Patient 09:32:11 CDT Marvel Charels [facility]-10904 Level 3 Est. Patient 12:02:49 CDT Alina Castaneda MD [facility]-21495 Level 3 Est. Patient 19:17:33 CDT Alina Castaneda MD [facility]-46166 Level 3 Est. Patient 13:19:10 CDT Marvel Charles [facility]-57292 Level 3 Est. Patient 08:20:05 CDT Alina Castaneda MD [facility]-70407 Level 3 Est. Patient 15:17:18 CDT Alina Castaneda MD [facility]-47411 Level 3 Est. Patient 14:25:36 RADIATION ONCOLOGY MANAGER Marvel Charles [facility]-29920 Level 3 Est. Patient 10:09:15 RADIATION ONCOLOGY MANAGER Marvel Charles [facility] CPT-14293 Level 3 Est. Patient 21:28:43 CDT Alina Castaneda MD [facility]-62579 Level 3 Est. Patient 15:20:11 [facility] CPT-77479 Level 4 Est. Patient 19:08:12 CDT Alina Castaneda MD [facility]-32165 Level 3 Est. Patient 15:06:39 CDT Marvel Thurstonestela [facility]-25558 Level 4 Est. Patient 17:48:15 CDT Alina Castaneda MD [facility]-02058 Level 3 Est. Patient 14:53:49 CDT Alina Castaneda MD [facility]-41780 Level 3 Est. Patient 09:35:16 CDT Alina Castaneda MD [facility]-57593 Level 3 Est. Patient 12:23:22 CDT Alina Castaneda MD [facility]-12164 Level 3 Est. Patient 16:19:15 CDT Alina Castaneda MD [facility]-86187 Level 3 Est. Patient 21:39:56 RADIATION ONCOLOGY MANAGER Alina Castaneda MD [facility] CPT-19818 Level 4 Est. Patient 14:12:56 RADIATION ONCOLOGY MANAGER Alina Castaneda MD [facility]-76631 Level 2 Est. Patient 15:34:57 RADIATION ONCOLOGY MANAGER Alina Castaneda MD [facility]-24778 Level 3 Est. Patient 12:17:04 RADIATION ONCOLOGY MANAGER Alina Castaneda MD [facility]-82091 Level 3 Est. Patient 09:18:18 RADIATION ONCOLOGY MANAGER Marvel Araceli [facility]-23776 Level 2 Est. Patient 21:50:24 CDT Alina Castaneda MD [facility]-33257 Level 3 Est. Patient 09:17:28 CDT Brooksjohn Charles [facility]-25533 Level 4 Est. Patient 18:54:02 CDT Alina Castaneda MD PhD [facility]-95728 Level 3 Est. Patient 10:47:10 CDT Alina Castaneda MD [facility]-34971 Level 3 Est. Patient 09:22:20 [facility]-58100 Level 3 Est. Patient 16:39:43 CDT Brookslashondanivia Araceli [facility]-96121 Level 3 Est. Patient 16:05:16 CDT Alina Castaneda MD [facility]-33220 Level 3 Est. Patient 00:29:15 CDT Alina Castaneda MD [facility]-20237 Level 3 Est. Patient 10:49:22 RADIATION ONCOLOGY MANAGER Marvle Charles [facility]-83579 Level 3 Est. Patient 21:30:19 RADIATION ONCOLOGY MANAGER Alina Castaneda MD PhD [facility]-44416 Level 4 Est. Patient 17:04:11 RADIATION ONCOLOGY MANAGER Marvel Charles [facility]-44762 Level 3 Est. Patient 15:34:11 RADIATION ONCOLOGY MANAGER Marvel Charles [facility]-07237 Level 2 Est. Patient 12:51:58 RADIATION ONCOLOGY MANAGER Alina Castaneda MD PhD [facility]-23837 Level 3 Est. Patient 13:20:01 RADIATION ONCOLOGY MANAGER Alina Castaneda MD PhD [facility] CPT-38562 Level 3 Est. Patient 09:23:35 CDT Alina Castaneda MD PhD [facility] Procedures Code Procedure Name Date Entry Date Standard Description CPT-93197 Bladder Scan 12:36:44 CDT CPT-37032 Bladder Scan 21:54:06 CDT CPT-G0008 Administration of Influenza Virus Vaccine 13:05:26 CDT CPT-54526 Fluzone Quadrivalent Intramuscular Suspension 0.5 ML 13: 05:26 CDT CPT-71770 Administration single or combination vaccine inc oral 11 :49:51 CDT CPT-89957 Pneumovax 11:49:51 CDT CPT-37855 Ribs unilateral 2V 12:37:22 RADIATION ONCOLOGY MANAGER CPT-57408 Chest 2V Frontal and Lat 17:15:26 CDT CPT-44958 Abx/Therapy Injection 18:54:02 CDT CPT-J0696 Rocephin 1000 mg (Ceftriaxone) 16:00:32 CDT CPT-34261 Chest 2V Frontal and Lat 15:26:45 CDT CPT-22184 Chest 2V Frontal and Lat 10:23:27 CDT CPT-07282 Venipuncture Draw Fee 10:11:00 CDT CPT-93696 Administration single or combination vaccine inc oral 11 :56:38 CDT CPT-29336 Influenza split virus > age 3 11:56:38 CDT CPT-80328 Venipuncture Draw Fee 08:49:54 RADIATION ONCOLOGY MANAGER CPT-16238 EKG Trac and Interp 17:54:19 RADIATION ONCOLOGY MANAGER
--- OUTSIDE RECORDS SUMMARY | 2018-07-02 16:57 | XMS REPORT | Clinical Summary ---
Author Author Admin, TERELL Organization [facility] Address Unknown Phone Unavailable Allergies, Adverse Reactions, [...] of unspecified site CHEST PAIN 786.50 Resolved Ailna Castaneda MD PhD Unspecified chest pain ANEMIA 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 Erazo SENIOR DATA DEVELOPER Benign paroxysmal positional vertigo Vertigo, benign paroxysmal [...] RHYTHMS ICD-427.9 Inactive Alina Castaneda MD PhD SINUSITIS, ACUTE ICD-461.9 Inactive Alina Castaneda MD PhD DIABETIC HYPOGLYCEMIA, TYPE II ICD-250.80 Roro 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 Inactive Alina Castaneda MD PhD Diabetes mellitus, type II, uncontrolled ICD-250.02 Inactive Alina Castaneda MD PhD PNEUMONIA, ORGANISM UNSPECIFIED ICD-486 Inactive Alina Castaneda MD PhD SKIN LESION ICD-709.9 Roro Castaneda MD PhD SPECIAL SCREENING FOR MALIGNANT NEOPLASM OF PROSTATE ICD-V76.44 Roro Castaneda MD PhD Confusion ICD-298.9 Inactive Alina Castaneda MD PhD Open wound of tongue and floor of mouth, uncomplicated ICD-873.64 Roro Castaneda MD PhD Chest pain, atypical ICD-786.59 Roro Castaneda MD PhD Chest pain, atypical ICD-786.59 Roro Castaneda MD PhD Hypoglycemia ICD-251.2 Inactive Alina Castaneda MD PhD Dizziness ICD-780.4 Inactive Alina Castaneda MD PhD Medication List Medication Instructions Start Date Stop Date Generic Name NDC Status Provider Patient Instruction [facility] LUBRICANT EYE DROPS 0.4-0.3 % OPHTH SOLN POLYETHYL GLYCOL-PROPYL GLYCOL 01385423030 Active Mima Yoeloinaum SENIOR DATA DEVELOPER Active FLUVOXAMINE MALEATE 100 MG ORAL TABS Take 1/2 tab at noon FLUVOXAMINE MALEATE 14455819188 Active Mima Yokum SENIOR DATA DEVELOPER Active CLONAZEPAM 1 MG TABS 1/2 pill by mouth three times daily CLONAZEPAM 92429403165 Active Alina Castaneda MD PhD Active MIRALAX POWD 17g by mouth daily, for constipation POLYETHYLENE GLYCOL 3350 76297302485 Active Alina Castaneda MD PhD Active HYDROCODONE-ACETAMINOPHEN 5-325 MG TABS 2 tabs by mouth three times daily for pain HYDROCODONE-ACETAMINOPHEN 22408412156 Active Mima Erazo APRN Active HUMALOG KWIKPEN 100 UNIT/ML SC SOPN 20 units with breakfast, 10 units with lunch, 10 units with dinner, for diabetes INSULIN LISPRO (HUMAN ) 31151509267 Active Alina Castaneda MD PhD Active LEVEMIR FLEXTOUCH 100 UNIT/ML SC SOPN 70 units SQ each evening, for diabetes INSULIN DETEMIR 14419524275 Active Alina Castaneda MD PhD Active LATUDA 120 MG ORAL TABS 1 pill by mouth nightly LURASIDONE HCL 52266338142 Active Alina Castaneda MD PhD Active COLACE 100 MG CAPS 1 pill by mouth twice daily, for constipation DOCUSATE SODIUM 79476406877 Active Alina Castaneda MD PhD Active TRUETEST TEST STRP check blood sugars 3x/day GLUCOSE BLOOD 78094057995 Active Marvel Charles TRAIN OPERATIONS SUPERVISOR Active ACCU-CHEK ROSA UZMA Use device to check blood sugars BLOOD GLUCOSE MONITORING SUPPL 62889175714 No Longer Active Maleh Ziglari TRAIN OPERATIONS SUPERVISOR Active ACCU-CHEK ROSA INVITR STRP use strips with device to check blood sugars 3 times daily GLUCOSE BLOOD 41536368240 No Longer Active Malnivia Mackenzieglari TRAIN OPERATIONS SUPERVISOR Active VERAPAMIL HCL ER 180 MG ORAL CR-TABS 1 pill by mouth twice daily, for migraine prevention VERAPAMIL HCL 29085976774 Active Alina Castaneda MD PhD Active CYCLOBENZAPRINE HCL 10 MG TABS 1 tablet by mouth three times daily, scheduled CYCLOBENZAPRINE HCL 47493679963 No Longer Active Alina Castaneda MD PhD Active HUMALOG 100 UNIT/ML SOLN Take 20 units with breakfast, 10u with lunch and suppetr. INSULIN LISPRO (HUMAN) 76289819948 No Longer Active Alina Castaneda MD PhD Active TRUETEST TEST STRP check sugars 4x/day GLUCOSE BLOOD 98130009711 No Longer Active Alina Castaneda MD PhD Active MORPHINE SULFATE 30 MG TABS 1 pill by mouth twice daily, for pain MORPHINE SULFATE 15507623378 Active Alina Castaneda MD PhD Active ACYCLOVIR 400 MG ORAL TABS 1 pill three times daily x 5 days, for cold sore outbreak ACYCLOVIR 29294561234 No Longer Active Alina Castaneda MD PhD Active PENICILLIN V POTASSIUM 500 MG TABS 1 pill by mouth three times daily PENICILLIN V POTASSIUM 34269510521 No Longer Active Alina Castaneda MD PhD Active UROXATRAL 10 MG [id number]-RRN Take 1 tablet by mouth daily ALFUZOSIN HCL 61831637950 No Longer Active Alina Castaneda MD PhD Active THIOTHIXENE 5 MG CAPS by mouth twice a day THIOTHIXENE 25453496220 No Longer Active Alina Castaneda MD PhD Active ZYPREXA 7.5 MG TABS 1 at HS OLANZAPINE 89413985123 No Longer Active Alina Castaneda MD PhD Active BD INSULIN SYRINGE 28G X 1/2" 1 ML MISC 1 four times per day INSULIN SYRINGE-NEEDLE U-100 81988488475 Active Marvel MENDOZAP Active TOLTERODINE TARTRATE 2 MG TABS 1 pill twice daily, for bladder TOLTERODINE TARTRATE 68755462939 Active Alina Castaneda MD PhD Active DETROL LA 4 MG [id number] Take 1 tablet by mouth daily TOLTERODINE TARTRATE 49603414352 No Longer Active Alina Castaneda MD PhD Active TERESE CONTOUR TEST STRP monitor blood sugars 3x/day GLUCOSE BLOOD 29307470649 No Longer Active Alina Castaneda MD PhD Active EQL TRUETEST TEST STRP Test blood sugar TID GLUCOSE BLOOD 67214248652 No Longer Active Alina Castaneda MD PhD Active FLUTICASONE PROPIONATE 50 MCG/ACT SUSP 2 sprays each nostril qDay x 30 days FLUTICASONE PROPIONATE 59730573183 No Longer Active Alina Castaneda MD PhD Active IBUPROFEN 200 MG TABS 1 Q 6 hr. PRN IBUPROFEN 95627387089 No Longer Active Alina Castaneda MD PhD Active NIACIN ER 500 MG CR-TABS 4 qHS (for triglycerides) NIACIN 15470151476 No Longer Active Alina Castaneda MD PhD Active ALFUZOSIN HCL ER 10 MG [id number] 1 tablet daily ALFUZOSIN HCL 83016311535 Active Vanessa Hickey MD Active LOVAZA 1 GM CAPS 4 daily (for triglycerides) [id number] ETHYL ESTERS 25331888268 Active Alina Castaneda MD PhD Active SAPHRIS 5 MG SUBL by mouth twice a day ASENAPINE MALEATE 64603937009 No Longer Active Marvel MARROQUIN Active ACETAMINOPHEN 500 MG TABS 2 Q 6 hr. PRN ACETAMINOPHEN 98584809038 No Longer Active Marvel MARROQUIN Active ORPHENADRINE CITRATE ER 100 MG [id number] 1 every 12 hr. as needed ORPHENADRINE CITRATE 36847918592 No Longer Active Alina Castaneda MD PhD Active NIACIN CR 500 MG CR-TABS 2 qHS NIACIN 26348828123 No Longer Active Alina Castaneda MD PhD Active AMOXICILLIN 500 MG CAPS 2 po BID x 10 days AMOXICILLIN 55551991740 No Longer Active Alina Castaneda MD PhD Active HYDROCODONE-ACETAMINOPHEN 7.5-325 MG TABS 1 four times a day as needed for pain HYDROCODONE-ACETAMINOPHEN 02021822882 No Longer Active Alina Castaneda MD PhD Active METFORMIN HCL ER 500 MG [id number]-WJM Take three tablets by mouth everyday METFORMIN HCL 24919984614 Active Maliheh Ziglari TRAIN OPERATIONS SUPERVISOR Active DOXEPIN HCL 10 MG CAPS Take 1 tablet by mouth daily DOXEPIN HCL 27574888016 No Longer Active Salina Han A Active NAVANE 10 MG CAPS 1/2 tablet twice a day THIOTHIXENE No Longer Active Salina Han [facility] Active CYCLOBENZAPRINE HCL 10 MG TABS 1/2 tablet by mouth every 8 hours as needed for muscle spasms CYCLOBENZAPRINE HCL 83383172760 No Longer Active Alina Castaneda MD PhD Active BACTROBAN 2 % CREAM apply to ear and nose twice daily MUPIROCIN CALCIUM 47295304465 No Longer Active Alina Castaneda MD PhD Active HYDROCODONE-ACETAMINOPHEN 5-325 MG TABS take one tablet by mouth every four hours as needed for pain HYDROCODONE-ACETAMINOPHEN 81630214628 No Longer Active Alina Castaneda MD PhD Active ZOLPIDEM TARTRATE 10 MG TABS take at bedtime ZOLPIDEM TARTRATE 49442076650 Active Alina Castaneda MD PhD Active ZYPREXA 5 MG TABS take one tablet by mouth every evening OLANZAPINE 27654277939 No Longer Active Alina Castaneda MD PhD Active ALBUTEROL SULFATE 0.083 % NEBU SOLN one vial per nebulizer TID and PRN cough/ soa ALBUTEROL SULFATE 39508876677 No Longer Active Alina Castaneda MD PhD Active GUAIFENESIN 600 MG [id number]-XHW 1 tablet by mouth twice daily if needed for cough GUAIFENESIN 77157903804 No Longer Active Marvel MARROQUIN Active AZITHROMYCIN 500 MG SOLR 1 po q day AZITHROMYCIN 14465568474 No Longer Active Alina Castaneda MD PhD Active METOPROLOL SUCCINATE 100 MG BT77E-WKQ 1 by mouth daily for blood pressure METOPROLOL SUCCINATE 04183181446 Active Alina Castaneda MD PhD Active PROMETHAZINE-CODEINE 6.25-10 MG/5ML SYRP 1 tsp po q 6 hours prn cough PROMETHAZINE-CODEINE 42924141030 No Longer Active Alina Castaneda MD PhD Active CEFDINIR 300 MG CAPS by mouth twice a day CEFDINIR 65273544099 No Longer Active Alina Castaneda MD PhD Active METFORMIN HCL 500 MG EB48A-SCZ Take 3 tablets by mouth everyday METFORMIN HCL 58115363775 No Longer Active Alina Castaneda MD PhD Active LEVEMIR 100 UNIT/ML SOLN 90 units SQ qHS INSULIN DETEMIR 75127174376 No Longer Active Marvel MARROQUIN Active TOPROL XL 100 MG [id number] 1 @ HS METOPROLOL SUCCINATE 71094658519 No Longer Active Marvel MARROQUIN Active ALLOPURINOL 300 MG TABS Take one by mouth daily ALLOPURINOL 39414670901 Active Alina Castaneda MD PhD Active ZYPREXA 10 MG TABS Take one by mouth daily OLANZAPINE 18571908147 No Longer Active Alina Castaneda MD PhD Active NOVOLOG 100 UNIT/ML SOLN 40 units with every meal INSULIN ASPART 73266013101 No Longer Active Alina Castaneda MD PhD Active VERAPAMIL HCL CR 120 MG TAB CR 1 qPM VERAPAMIL HCL 98711782483 No Longer Active Salina Han [facility] Active ZYPREXA 15 MG TABS Take 1 tablet by mouth daily OLANZAPINE 48233577464 No Longer Active Marvel Thurstonestela MARROQUIN Active LISINOPRIL 20 MG TABS 1 BID LISINOPRIL 17082336775 Active Alina Castaneda MD PhD Active ALBUTEROL SULFATE (2.5 MG/3ML) 0.083% NEBU 1 neb tid and prn cough ALBUTEROL SULFATE 87444156775 No Longer Active Alina Castaneda MD PhD Active FLUVOXAMINE MALEATE 100 MG TABS Take one (1) tablet by mouth am, 05/25 at noon, 1 pm FLUVOXAMINE MALEATE 37585321691 Active Alina Castaneda MD PhD Active TRAVATAN Z 0.004 % SOLN 1 gtt each eye daily TRAVOPROST 28097972279 Active CRYSTAL Suarez Active LANTUS 100 UNIT/ML SOLN 60 units sq q hs INSULIN GLARGINE 16427896077 No Longer Active CRYSTAL Suarez Active ALBUTEROL SULFATE (2.5 MG/3ML) 0.083% NEBU 1 neb tid and prn cough ALBUTEROL SULFATE (2.5 MG/3ML) 0.083% NEBU 356981 ALBUTEROL SULFATE Inactive ZYPREXA 15 MG TABS Take 1 tablet by mouth daily ZYPREXA 15 MG TABS 653609 OLANZAPINE Inactive VERAPAMIL HCL CR 120 MG TAB CR 1 qPM VERAPAMIL HCL CR 120 MG TAB CR VERAPAMIL HCL Inactive ZYPREXA 10 MG TABS Take one by mouth daily ZYPREXA 10 MG TABS 939206 OLANZAPINE Inactive TOPROL XL 100 MG [id number] 1 @ HS TOPROL XL 100 MG [id number]-KFY METOPROLOL SUCCINATE Inactive LEVEMIR 100 UNIT/ML SOLN 90 units SQ qHS LEVEMIR 100 UNIT/ML SOLN INSULIN DETEMIR Inactive PROMETHAZINE-CODEINE 6.25-10 MG/5ML SYRP 1 tsp po q 6 hours prn cough PROMETHAZINE-CODEINE 6.25-10 MG/5ML SYRP 350921 PROMETHAZINE- CODEINE Inactive GUAIFENESIN 600 MG [id number] 1 tablet by mouth twice daily if needed for cough GUAIFENESIN 600 MG [id number]-OBZ GUAIFENESIN Inactive ALBUTEROL SULFATE 0.083 % NEBU SOLN one vial per nebulizer TID and PRN cough/ soa ALBUTEROL SULFATE 0.083 % NEBU SOLN 607592 ALBUTEROL SULFATE Inactive ZYPREXA 5 MG TABS take one tablet by mouth every evening ZYPREXA 5 MG TABS 753938 OLANZAPINE Inactive HYDROCODONE-ACETAMINOPHEN 5-325 MG TABS take one tablet by mouth every four hours as needed for pain HYDROCODONE-ACETAMINOPHEN 5-325 MG TABS 141142 HYDROCODONE-ACETAMINOPHEN Inactive BACTROBAN 2 % CREAM apply to ear and nose twice daily BACTROBAN 2 % CREAM 085497 MUPIROCIN CALCIUM Inactive CYCLOBENZAPRINE HCL 10 MG TABS 1/2 tablet by mouth every 8 hours as needed for muscle spasms CYCLOBENZAPRINE HCL 10 MG TABS 801733 CYCLOBENZAPRINE HCL Inactive NAVANE 10 MG CAPS 1/2 tablet twice a day NAVANE 10 MG CAPS THIOTHIXENE Inactive DOXEPIN HCL 10 MG CAPS Take 1 tablet by mouth daily DOXEPIN HCL 10 MG CAPS 7985222 DOXEPIN HCL Inactive HYDROCODONE-ACETAMINOPHEN 7.5-325 MG TABS 1 four times a day as needed for pain HYDROCODONE-ACETAMINOPHEN 7.5-325 MG TABS 275949 HYDROCODONE-ACETAMINOPHEN Inactive NIACIN CR 500 MG CR-TABS 2 qHS NIACIN CR 500 MG CR- TABS NIACIN Inactive ORPHENADRINE CITRATE ER 100 MG IS37Z-HVQ 1 every 12 hr. as needed ORPHENADRINE CITRATE ER 100 MG [id number]-CKA ORPHENADRINE CITRATE Inactive ACETAMINOPHEN 500 MG TABS 2 Q 6 hr. PRN ACETAMINOPHEN 500 MG TABS 648493 ACETAMINOPHEN Inactive SAPHRIS 5 MG SUBL by mouth twice a day SAPHRIS 5 MG SUBL ASENAPINE MALEATE Inactive NIACIN ER 500 MG CR-TABS 4 qHS (for triglycerides) NIACIN ER 500 MG CR-TABS NIACIN Inactive IBUPROFEN 200 MG TABS 1 Q 6 hr. PRN IBUPROFEN 200 MG TABS 672726 IBUPROFEN Inactive FLUTICASONE PROPIONATE 50 MCG/ACT SUSP 2 sprays each nostril qDay x 30 days FLUTICASONE PROPIONATE 50 MCG/ACT SUSP 214855 FLUTICASONE PROPIONATE Inactive EQL TRUETEST TEST STRP Test blood sugar TID EQL TRUETEST TEST STRP GLUCOSE BLOOD Inactive TERESE CONTOUR TEST STRP monitor blood sugars 3x/day TERESE CONTOUR TEST STRP GLUCOSE BLOOD Inactive DETROL LA 4 MG II87Q-CNW Take 1 tablet by mouth daily DETROL LA 4 MG [id number]-NJH TOLTERODINE TARTRATE Inactive ZYPREXA 7.5 MG TABS 1 at HS ZYPREXA 7.5 MG TABS 910616 OLANZAPINE Inactive THIOTHIXENE 5 MG CAPS by mouth twice a day THIOTHIXENE 5 MG CAPS 432009 THIOTHIXENE Inactive UROXATRAL 10 MG FQ46O-FUG Take 1 tablet by mouth daily UROXATRAL 10 MG SZ28U-APK ALFUZOSIN HCL Inactive ACYCLOVIR 400 MG ORAL TABS 1 pill three times daily x 5 days, for cold sore outbreak ACYCLOVIR 400 MG ORAL TABS 687651 ACYCLOVIR Inactive TRUETEST TEST STRP check sugars 4x/day TRUETEST TEST STRP GLUCOSE BLOOD Inactive HUMALOG 100 UNIT/ML SOLN Take 20 units with breakfast, 10u with lunch and suppetr. HUMALOG 100 UNIT/ML SOLN INSULIN LISPRO ( HUMAN) Inactive CYCLOBENZAPRINE HCL 10 MG TABS 1 tablet by mouth three times daily, scheduled CYCLOBENZAPRINE HCL 10 MG TABS 522857 CYCLOBENZAPRINE HCL Inactive ACCU-CHEK ROSA INVITR STRP use strips with device to check blood sugars 3 times daily ACCU-CHEK ROSA INVITR STRP GLUCOSE BLOOD Inactive ACCU-CHEK ROSA UZMA Use device to check blood sugars ACCU-CHEK ROSA UZMA BLOOD GLUCOSE MONITORING SUPPL Inactive CEFDINIR 300 MG CAPS by mouth twice a day CEFDINIR 300 MG CAPS 701959 CEFDINIR Inactive AZITHROMYCIN 500 MG SOLR 1 po q day AZITHROMYCIN 500 MG SOLR 700288 AZITHROMYCIN Inactive AMOXICILLIN 500 MG CAPS 2 po BID x 10 days AMOXICILLIN 500 MG CAPS 270885 AMOXICILLIN Inactive PENICILLIN V POTASSIUM 500 MG TABS 1 pill by mouth three times daily PENICILLIN V POTASSIUM 500 MG TABS 068774 PENICILLIN V POTASSIUM Inactive Immunizations Vaccine Administration [...] Fluvirin, Fluarix, Agriflu(>=18 yo)) Fluzone (>3 yrs.) [BIE906] Influenza, seasonal, injectable pneumococcal immunization administered Pneumovax [...] HGBA1C - Chemistry sodium, serum 131 mmol/L 251-443 1519/12/30 potassium, serum 5.0 mmol/L 3.5-5.2 chloride, serum 95 mmol/L 98-107 carbon dioxide, venous blood 26.7 mmol/L 21.0-32.0 blood glucose 112 mg/dL 65-110 calcium, serum 9.2 mg/dL 8.5-10.1 urea nitrogen, blood 12 mg/dL 7-18 creatinine, serum 1.10 mg/dL 0.60-1.30 hemoglobin A1C, blood, as % of total hemoglobin 5.8 % 4.3-6.0 Lab Report: Basic Metabolic Panel, HGBA1C, MICROALBUMIN - Chemistry sodium, serum 137 mmol/L 178-586 2132/05/19 potassium, serum 5.2 mmol/L 3.5-5.2 chloride, serum [...] microalbumin, urine 10 0-19 Lab Report: Chlamydia/GC APTIMA/70903, HIV-1/2 Agn/Dominga/63634, RPR (DX) W ... - Chemistry hepatitis B surface antigen NON-REACTIVE NON-REACTIVE Lab Report: Chlamydia/GC APTIMA/13758, HIV-1/2 Agn/Dominga/27019, RPR (DX) W ... - Lab chlamydia DNA probe NOT DETECTED NOT DETECTED Lab Report: Chlamydia/GC APTIMA/17903, HIV-1/2 Agn/Dominga/32032, RPR (DX) W ... - Microbiology Neisseria gonorrhoeae DNA probe NOT DETECTED NOT DETECTED Lab Report: Chlamydia/GC APTIMA/19939, HIV-1/2 Agn/Dominga/87046, RPR (DX) W ... - Serology rapid plasma reagin antibody titer NON-REACTIVE NON-REACTIVE Lab Report: Comp. Metabolic Panel - Chemistry sodium, serum 127 mmol/L 728-857 8014/10/27 potassium, serum 4.1 mmol/L 3.5-5.2 chloride, serum [...] CBC - Chemistry cholesterol, serum 131 mg/dL 357-945 6091/06/03 triglyceride, serum, fasting 383 mg/dL 30-200 HDL [...] 4.7 mg/dL 2.6-7.2 cholesterol, serum 142 mg/dL 201-598 8725/06/26 triglyceride, serum, fasting 272 mg/dL 30-200 HDL [...] mg/dL Encounters Code Encounter Date Provider Facility CPT-54662 Level 4 Est. Patient 17:55:14 CDT Mimacecily Erazo [facility] CPT-59731 Level 2 Est. Patient 17:13:21 CDT Alina Castaneda MD [facility] CPT-34390 Level 3 Est. Patient 14:46:15 CDT Vanessa Hickey MD [facility]-91874 Level 3 Est. Patient 09:34:56 CDT Alina Castaneda MD [facility]-79290 Level 3 Est. Patient 21:40:19 CDT [facility] Kacey [facility] CPT-47124 Level 3 Est. Patient 09:26:40 CDT Marvel Charles [facility] CPT-25125 Level 3 Est. Patient 12:36:43 CDT Vanessa Hickey MD [facility]-41215 Level 3 Est. Patient 12:57:49 CDT Vanessa Hickey MD [facility] CPT-11804 Level 3 Est. Patient 00:28:25 CDT Alina Castaneda MD [facility] CPT-06867 Level 2 Est. Patient 12:52:14 CDT Alina Castaneda MD [facility] CPT-75668 Level 3 Est. Patient 11:51:18 PATTERN CHECKER Alina Castaneda MD [facility]-23693 Level 3 Est. Patient 10:09:22 PATTERN CHECKER Alina Castaneda MD [facility]-23027 Level 3 Est. Patient 14:36:26 [facility] CPT-76144 Level 3 Est. Patient 13:34:47 PATTERN CHECKER Alina Castaneda MD [facility]-12101 Level 3 Est. Patient 19:52:08 PATTERN CHECKER Alina Castaneda MD [facility]-96274 Level 3 Est. Patient 10:01:51 PATTERN CHECKER Marvel Araceli [facility]-84611 Level 3 Est. Patient 21:54:06 CDT Vanessa Hickey MD [facility]-00102 Level 3 Est. Patient 08:54:46 CDT Alina Castaneda MD [facility]-88857 Level 3 Est. Patient 09:32:11 CDT Marvel Charles [facility]-93752 Level 3 Est. Patient 12:02:49 CDT Alina Castaneda MD [facility]-42991 Level 3 Est. Patient 19:17:33 CDT Alina Castaneda MD [facility]-42537 Level 3 Est. Patient 13:19:10 CDT Marvel Charles [facility]-25124 Level 3 Est. Patient 08:20:05 CDT Alina Castaneda MD [facility]-98668 Level 3 Est. Patient 15:17:18 CDT Alina Castaneda MD [facility]-29880 Level 3 Est. Patient 14:25:36 PATTERN CHECKER Brooksjohn Charles [facility]-70800 Level 3 Est. Patient 10:09:15 PATTERN CHECKER Marvel Charles [facility]-16559 Level 3 Est. Patient 21:28:43 CDT Alina Castaneda MD [facility]39626 Level 3 Est. Patient 15:20:11 CDT Marvel Araceli [facility]-51144 Level 4 Est. Patient 19:08:12 CDT Alina Castaneda MD [facility]-87194 Level 3 Est. Patient 15:06:39 [facility]-62246 Level 4 Est. Patient 17:48:15 CDT Alina Castaneda MD [facility]-28852 Level 3 Est. Patient 14:53:49 CDT Alina Castaneda MD [facility]-95527 Level 3 Est. Patient 09:35:16 CDT Alina Castaneda MD [facility]-08405 Level 3 Est. Patient 12:23:22 CDT Alina Castaneda MD [facility]-98293 Level 3 Est. Patient 16:19:15 CDT Alina Castaneda MD [facility]-09474 Level 3 Est. Patient 21:39:56 PATTERN CHECKER Alina Castaneda MD [facility]-84680 Level 4 Est. Patient 14:12:56 PATTERN CHECKER Alina Castaneda MD [facility]-52500 Level 2 Est. Patient 15:34:57 PATTERN CHECKER Alina Castaneda MD [facility]-38436 Level 3 Est. Patient 12:17:04 PATTERN CHECKER Alina Castaneda MD [facility]-16698 Level 3 Est. Patient 09:18:18 PATTERN CHECKER Marvel Charles [facility]-61724 Level 2 Est. Patient 21:50:24 CDT Alina Castaneda MD [facility]-03627 Level 3 Est. Patient 09:17:28 CDT Marvel Araceli [facility] CPT-29482 Level 4 Est. Patient 18:54:02 CDT Alina Castaneda MD [facility]-16007 Level 3 Est. Patient 10:47:10 CDT Alina Castaneda MD [facility]-08138 Level 3 Est. Patient 09:22:20 CDT Marvel Araceli [facility] CPT-92107 Level 3 Est. Patient 16:39:43 CDT [place] Araceli [facility] CPT-05883 Level 3 Est. Patient 16:05:16 CDT Alina Castaneda MD [facility] CPT-08319 Level 3 Est. Patient 00:29:15 CDT Alina Castaneda MD [facility] CPT-07644 Level 3 Est. Patient 10:49:22 PATTERN CHECKER Brooksjohn Charles [facility] CPT-87991 Level 3 Est. Patient 21:30:19 PATTERN CHECKER Alina Castaneda MD [facility] CPT-96098 Level 4 Est. Patient 17:04:11 PATTERN CHECKER Brooksjohn Charles [facility] CPT-01112 Level 3 Est. Patient 15:34:11 PATTERN CHECKER Marvel Charles [facility] CPT-31487 Level 2 Est. Patient 12:51:58 PATTERN CHECKER Alina Castaneda MD [facility]-50527 Level 3 Est. Patient 13:20:01 PATTERN CHECKER Alina Castaneda MD [facility] CPT-49746 Level 3 Est. Patient 09:23:35 CDT Alina Castaneda MD [facility] Procedures Code Procedure Name Date Entry Date Standard Description CPT-34275 Bladder Scan 12:36:44 CDT CPT-28665 Bladder Scan 21:54:06 CDT CPT-G0008 Administration of Influenza Virus Vaccine 13:05:26 CDT CPT-88685 Fluzone Quadrivalent Intramuscular Suspension 0.5 ML 13: 05:26 CDT CPT-67499 Administration single or combination vaccine inc oral 11 :49:51 CDT CPT-83772 Pneumovax 11:49:51 CDT CPT-94713 Ribs unilateral 2V 12:37:22 PATTERN CHECKER CPT-11521 Chest 2V Frontal and Lat 17:15:26 CDT CPT-26988 Abx/Therapy Injection 18:54:02 CDT CPT-J0696 Rocephin 1000 mg (Ceftriaxone) 16:00:32 CDT CPT-61832 Chest 2V Frontal and Lat 15:26:45 CDT CPT-87009 Chest 2V Frontal and Lat 10:23:27 CDT CPT-77445 Venipuncture Draw Fee 10:11:00 CDT CPT-44454 Administration single or combination vaccine inc oral 11 :56:38 CDT CPT-66692 Influenza split virus > age 3 11:56:38 CDT CPT-44687 Venipuncture Draw Fee 08:49:54 PATTERN CHECKER CPT-45639 EKG Trac and Interp 17:54:19 PATTERN CHECKER
--- OUTSIDE RECORDS SUMMARY | 2018-07-02 16:59 | XMS REPORT | Clinical Summary ---
Author Author Admin, TERELL Organization [facility] Address Unknown Phone Unavailable Allergies, Adverse [...] malignant neoplasms of prostate Hypoglycemia 251.2 Resolved lAina Castaneda MD PhD Hypoglycemia, unspecified Diabetes mellitus, [...] RIB PAIN, RIGHT SIDED ICD-786.50 Inactive Alina Castnaeda MD PhD SKIN LESION ICD-709.9 Inactive Alina [...] 1 pill by mouth nightly LURASIDONE HCL 29914348348 Active Alina Castaneda MD PhD Active COLACE 100 MG CAPS 1 pill by mouth twice daily, for constipation DOCUSATE SODIUM 10289164842 Active Alina Castaneda MD PhD Active TRUETEST TEST STRP check blood sugars 3x/day GLUCOSE BLOOD 19999107620 Active Marvel MARROQUIN Active ACCU-CHEK ROSA UZMA Use device to check blood sugars BLOOD GLUCOSE MONITORING SUPPL 75511328098 No Longer Active Marvel MARROQUIN Active ACCU-CHEK ROSA INVITR STRP use strips with device to check blood sugars 3 times daily GLUCOSE BLOOD 11545281423 No Longer Active Marvel MARROQUIN Active VERAPAMIL HCL ER 180 MG ORAL CR-TABS 1 pill by mouth twice daily, for migraine prevention VERAPAMIL HCL 93514731153 Active Alina Castaneda MD PhD Active CYCLOBENZAPRINE HCL 10 MG TABS 1 tablet by mouth three times daily, scheduled CYCLOBENZAPRINE HCL 93211622689 No Longer Active Alina Castaneda MD PhD Active HUMALOG 100 UNIT/ML SOLN Take 20 units with breakfast, 10u with lunch and suppetr. INSULIN LISPRO (HUMAN) 15036354736 No Longer Active Alina Castaneda MD PhD Active TRUETEST TEST STRP check sugars 4x/day GLUCOSE BLOOD 22991278406 No Longer Active Alina Castaneda MD PhD Active MORPHINE SULFATE 30 MG TABS 1 pill by mouth twice daily, for pain MORPHINE SULFATE 75340772859 Active Alina Castaneda MD PhD Active ACYCLOVIR 400 MG ORAL TABS 1 pill three times daily x 5 days, for cold sore outbreak ACYCLOVIR 55740457940 No Longer Active Alina Castaneda MD PhD Active PENICILLIN V POTASSIUM 500 MG TABS 1 pill by mouth three times daily PENICILLIN V POTASSIUM 21480003999 No Longer Active Alina Castaneda MD PhD Active UROXATRAL 10 MG [id number] Take 1 tablet by mouth daily ALFUZOSIN HCL 02519387927 No Longer Active Alina Castaneda MD PhD Active THIOTHIXENE 5 MG CAPS by mouth twice a day THIOTHIXENE 79800466963 No Longer Active Alina Castaneda MD PhD Active ZYPREXA 7.5 MG TABS 1 at HS OLANZAPINE 63850214497 No Longer Active Alina Castaneda MD PhD Active LEVEMIR 100 UNIT/ML SOLN Take 70 u at 7-8pm INSULIN DETEMIR 17688134253 Active Maliheh Ziglari STUDENT AMBASSADOR Active BD INSULIN SYRINGE 28G X 1/2" 1 ML MISC 1 four times per day INSULIN SYRINGE-NEEDLE U-100 96425664343 Active Maliheh Ziglari STUDENT AMBASSADOR Active TOLTERODINE TARTRATE 2 MG TABS 1 pill twice daily, for bladder TOLTERODINE TARTRATE 70541297441 Active Alina Castaneda MD PhD Active DETROL LA 4 MG [id number] Take 1 tablet by mouth daily TOLTERODINE TARTRATE 90796994909 No Longer Active Alina Castaneda MD PhD Active HYDROCODONE-ACETAMINOPHEN 5-325 MG TABS 2 tabs by mouth three times daily as needed for pain HYDROCODONE-ACETAMINOPHEN 23002260860 Active Alina Castaneda MD PhD Active TERESE CONTOUR TEST STRP monitor blood sugars 3x/day GLUCOSE BLOOD 36066728969 No Longer Active Alina Castaneda MD PhD Active EQL TRUETEST TEST STRP Test blood sugar TID GLUCOSE BLOOD 46735227400 No Longer Active Alina Castaneda MD PhD Active FLUTICASONE PROPIONATE 50 MCG/ACT SUSP 2 sprays each nostril qDay x 30 days FLUTICASONE PROPIONATE 84737669536 No Longer Active Alina Castaneda MD PhD Active IBUPROFEN 200 MG TABS 1 Q 6 hr. PRN IBUPROFEN 12723160830 No Longer Active Alina Castaneda MD PhD Active NIACIN ER 500 MG CR-TABS 4 qHS (for triglycerides) NIACIN 14008337693 No Longer Active Alina Castaneda MD PhD Active ALFUZOSIN HCL ER 10 MG [id number] 1 tablet daily ALFUZOSIN HCL 58015984271 Active Vanessa Hickey MD Active CLONAZEPAM 1 MG TABS 1 pill by mouth three times daily CLONAZEPAM 25570263662 Active Alina Castaneda MD PhD Active LOVAZA 1 GM CAPS 4 daily (for triglycerides) [id number] ETHYL ESTERS 02312760817 Active Alina Castaneda MD PhD Active SAPHRIS 5 MG SUBL by mouth twice a day ASENAPINE MALEATE 97663674092 No Longer Active Marvel MARROQUIN Active ACETAMINOPHEN 500 MG TABS 2 Q 6 hr. PRN ACETAMINOPHEN 31859414882 No Longer Active Maliheh Ziglari STUDENT AMBASSADOR Active ORPHENADRINE CITRATE ER 100 MG [id number] 1 every 12 hr. as needed ORPHENADRINE CITRATE 96769877355 No Longer Active Alina Castaneda MD PhD Active NIACIN CR 500 MG CR-TABS 2 qHS NIACIN 01311530976 No Longer Active Alina Castaneda MD PhD Active AMOXICILLIN 500 MG CAPS 2 po BID x 10 days AMOXICILLIN 78435802989 No Longer Active Alina Castaneda MD PhD Active HYDROCODONE-ACETAMINOPHEN 7.5-325 MG TABS 1 four times a day as needed for pain HYDROCODONE-ACETAMINOPHEN 08018477489 No Longer Active Alina Castaneda MD PhD Active METFORMIN HCL ER 500 MG FA82W-YET Take three tablets by mouth everyday METFORMIN HCL 92501611532 Active Mallashondanivia Mackenzieglestela STUDENT AMBASSADOR Active DOXEPIN HCL 10 MG CAPS Take 1 tablet by mouth daily DOXEPIN HCL 52755436566 No Longer Active Salina Han A Active NAVANE 10 MG CAPS 1/2 tablet twice a day THIOTHIXENE No Longer Active Salina Han [facility] Active CYCLOBENZAPRINE HCL 10 MG TABS 1/2 tablet by mouth every 8 hours as needed for muscle spasms CYCLOBENZAPRINE HCL 73955544487 No Longer Active Alina Castaneda MD PhD Active BACTROBAN 2 % CREAM apply to ear and nose twice daily MUPIROCIN CALCIUM 49072878264 No Longer Active Alina Castaneda MD PhD Active HYDROCODONE-ACETAMINOPHEN 5-325 MG TABS take one tablet by mouth every four hours as needed for pain HYDROCODONE-ACETAMINOPHEN 39610189421 No Longer Active Alina Castaneda MD PhD Active ZOLPIDEM TARTRATE 10 MG TABS take at bedtime ZOLPIDEM TARTRATE 95066583641 Active Alina Castaneda MD PhD Active ZYPREXA 5 MG TABS take one tablet by mouth every evening OLANZAPINE 39565954832 No Longer Active Alina Castaneda MD PhD Active ALBUTEROL SULFATE 0.083 % NEBU SOLN one vial per nebulizer TID and PRN cough/ soa ALBUTEROL SULFATE 39963014198 No Longer Active Alina Castaneda MD PhD Active GUAIFENESIN 600 MG [id number]-[id number] 1 tablet by mouth twice daily if needed for cough GUAIFENESIN 77552103439 No Longer Active Marvel MARROQUIN Active AZITHROMYCIN 500 MG SOLR 1 po q day AZITHROMYCIN 02665686492 No Longer Active Alina Castaneda MD PhD Active METOPROLOL SUCCINATE 100 MG XR36L-BBD 1 by mouth daily for blood pressure METOPROLOL SUCCINATE 49986376960 Active Alina Castaneda MD PhD Active PROMETHAZINE-CODEINE 6.25-10 MG/5ML SYRP 1 tsp po q 6 hours prn cough PROMETHAZINE-CODEINE 40625758772 No Longer Active Alina Castaneda MD PhD Active CEFDINIR 300 MG CAPS by mouth twice a day CEFDINIR 80736677263 No Longer Active Alina Castaneda MD PhD Active METFORMIN HCL 500 MG BJ94O-ZTB Take 3 tablets by mouth everyday METFORMIN HCL 35054924098 No Longer Active Alina Castaneda MD PhD Active LEVEMIR 100 UNIT/ML SOLN 90 units SQ qHS INSULIN DETEMIR 49447251971 No Longer Active Marvel MARROQUIN Active TOPROL XL 100 MG [id number]-JNQ 1 @ HS METOPROLOL SUCCINATE 41793881490 No Longer Active Marvel MARROQUIN Active ALLOPURINOL 300 MG TABS Take one by mouth daily ALLOPURINOL 74436108036 Active Alina Castaneda MD PhD Active ZYPREXA 10 MG TABS Take one by mouth daily OLANZAPINE 64201697701 No Longer Active Alina Castaneda MD PhD Active NOVOLOG 100 UNIT/ML SOLN 40 units with every meal INSULIN ASPART 85309822567 No Longer Active Alina Castaneda MD PhD Active VERAPAMIL HCL CR 120 MG TAB CR 1 qPM VERAPAMIL HCL 68577185373 No Longer Active Salina Han [facility] Active ZYPREXA 15 MG TABS Take 1 tablet by mouth daily OLANZAPINE 57475377279 No Longer Active Marvel Mackenzieanca STUDENT AMBASSADOR Active LISINOPRIL 20 MG TABS 1 BID LISINOPRIL 62648819432 Active Alina Castaneda MD PhD Active ALBUTEROL SULFATE (2.5 MG/3ML) 0.083% NEBU 1 neb tid and prn cough ALBUTEROL SULFATE 73425374166 No Longer Active Alina Castaneda MD PhD Active FLUVOXAMINE MALEATE 100 MG TABS Take one (1) tablet by mouth am, 1/2 at noon, 1 pm FLUVOXAMINE MALEATE 55447522497 Active Alina Castaneda MD PhD Active TRAVATAN Z 0.004 % SOLN 1 gtt each eye daily TRAVOPROST 51210738417 Active CRYSTAL Suarez Active LANTUS 100 UNIT/ML SOLN 60 units sq q hs INSULIN GLARGINE 74025699050 No Longer Active CRYSTAL Suarez Active ALBUTEROL SULFATE (2.5 MG/3ML) 0.083% NEBU 1 neb tid and prn cough ALBUTEROL SULFATE (2.5 MG/3ML) 0.083% NEBU 470409 ALBUTEROL SULFATE Inactive ZYPREXA 15 MG TABS Take 1 tablet by mouth daily ZYPREXA 15 MG TABS 376750 OLANZAPINE Inactive VERAPAMIL HCL CR 120 MG TAB CR 1 qPM VERAPAMIL HCL CR 120 MG TAB CR VERAPAMIL HCL Inactive ZYPREXA 10 MG TABS Take one by mouth daily ZYPREXA 10 MG TABS 643891 OLANZAPINE Inactive TOPROL XL 100 MG [id number] 1 @ HS TOPROL XL 100 MG GC73O-COG METOPROLOL SUCCINATE Inactive LEVEMIR 100 UNIT/ML SOLN 90 units SQ qHS LEVEMIR 100 UNIT/ML SOLN INSULIN DETEMIR Inactive PROMETHAZINE-CODEINE 6.25-10 MG/5ML SYRP 1 tsp po q 6 hours prn cough PROMETHAZINE-CODEINE 6.25-10 MG/5ML SYRP 738307 PROMETHAZINE- CODEINE Inactive GUAIFENESIN 600 MG FF56I-IYL 1 tablet by mouth twice daily if needed for cough GUAIFENESIN 600 MG [id number]-OYA GUAIFENESIN Inactive ALBUTEROL SULFATE 0.083 % NEBU SOLN one vial per nebulizer TID and PRN cough/ soa ALBUTEROL SULFATE 0.083 % NEBU SOLN 919619 ALBUTEROL SULFATE Inactive ZYPREXA 5 MG TABS take one tablet by mouth every evening ZYPREXA 5 MG TABS 708995 OLANZAPINE Inactive HYDROCODONE-ACETAMINOPHEN 5-325 MG TABS take one tablet by mouth every four hours as needed for pain HYDROCODONE-ACETAMINOPHEN 5-325 MG TABS 641548 HYDROCODONE-ACETAMINOPHEN Inactive BACTROBAN 2 % CREAM apply to ear and nose twice daily BACTROBAN 2 % CREAM 989925 MUPIROCIN CALCIUM Inactive CYCLOBENZAPRINE HCL 10 MG TABS 1/2 tablet by mouth every 8 hours as needed for muscle spasms CYCLOBENZAPRINE HCL 10 MG TABS 110001 CYCLOBENZAPRINE HCL Inactive NAVANE 10 MG CAPS 1/2 tablet twice a day NAVANE 10 MG CAPS THIOTHIXENE Inactive DOXEPIN HCL 10 MG CAPS Take 1 tablet by mouth daily DOXEPIN HCL 10 MG CAPS 3598514 DOXEPIN HCL Inactive HYDROCODONE-ACETAMINOPHEN 7.5-325 MG TABS 1 four times a day as needed for pain HYDROCODONE-ACETAMINOPHEN 7.5-325 MG TABS 855286 HYDROCODONE-ACETAMINOPHEN Inactive NIACIN CR 500 MG CR-TABS 2 qHS NIACIN CR 500 MG CR- TABS NIACIN Inactive ORPHENADRINE CITRATE ER 100 MG [id number] 1 every 12 hr. as needed ORPHENADRINE CITRATE ER 100 MG [id number] ORPHENADRINE CITRATE Inactive ACETAMINOPHEN 500 MG TABS 2 Q 6 hr. PRN ACETAMINOPHEN 500 MG TABS 581518 ACETAMINOPHEN Inactive SAPHRIS 5 MG SUBL by mouth twice a day SAPHRIS 5 MG SUBL ASENAPINE MALEATE Inactive NIACIN ER 500 MG CR-TABS 4 qHS (for triglycerides) NIACIN ER 500 MG CR-TABS NIACIN Inactive IBUPROFEN 200 MG TABS 1 Q 6 hr. PRN IBUPROFEN 200 MG TABS 427395 IBUPROFEN Inactive FLUTICASONE PROPIONATE 50 MCG/ACT SUSP 2 sprays each nostril qDay x 30 days FLUTICASONE PROPIONATE 50 MCG/ACT SUSP 643707 FLUTICASONE PROPIONATE Inactive EQL TRUETEST TEST STRP Test blood sugar TID EQL TRUETEST TEST STRP GLUCOSE BLOOD Inactive TERESE CONTOUR TEST STRP monitor blood sugars 3x/day TERESE CONTOUR TEST STRP GLUCOSE BLOOD Inactive DETROL LA 4 MG [id number] Take 1 tablet by mouth daily DETROL LA 4 MG [id number] TOLTERODINE TARTRATE Inactive ZYPREXA 7.5 MG TABS 1 at HS ZYPREXA 7.5 MG TABS 384295 OLANZAPINE Inactive THIOTHIXENE 5 MG CAPS by mouth twice a day THIOTHIXENE 5 MG CAPS 186271 THIOTHIXENE Inactive UROXATRAL 10 MG [id number]-TOB Take 1 tablet by mouth daily UROXATRAL 10 MG PV64M-OYJ ALFUZOSIN HCL Inactive ACYCLOVIR 400 MG ORAL TABS 1 pill three times daily x 5 days, for cold sore outbreak ACYCLOVIR 400 MG ORAL TABS 082793 ACYCLOVIR Inactive TRUETEST TEST STRP check sugars 4x/day TRUETEST TEST STRP GLUCOSE BLOOD Inactive HUMALOG 100 UNIT/ML SOLN Take 20 units with breakfast, 10u with lunch and suppetr. HUMALOG 100 UNIT/ML SOLN INSULIN LISPRO ( HUMAN) Inactive CYCLOBENZAPRINE HCL 10 MG TABS 1 tablet by mouth three times daily, scheduled CYCLOBENZAPRINE HCL 10 MG TABS 447264 CYCLOBENZAPRINE HCL Inactive ACCU-CHEK ROSA INVITR STRP use strips with device to check blood sugars 3 times daily ACCU-CHEK ROSA INVITR STRP GLUCOSE BLOOD Inactive ACCU-CHEK ROSA UZMA Use device to check blood sugars ACCU-CHEK ROSA UZMA BLOOD GLUCOSE MONITORING SUPPL Inactive CEFDINIR 300 MG CAPS by mouth twice a day CEFDINIR 300 MG CAPS 562305 CEFDINIR Inactive AZITHROMYCIN 500 MG SOLR 1 po q day AZITHROMYCIN 500 MG SOLR 794968 AZITHROMYCIN Inactive AMOXICILLIN 500 MG CAPS 2 po BID x 10 days AMOXICILLIN 500 MG CAPS 343581 AMOXICILLIN Inactive PENICILLIN V POTASSIUM 500 MG TABS 1 pill by mouth three times daily PENICILLIN V POTASSIUM 500 MG TABS 430961 PENICILLIN V POTASSIUM Inactive Immunizations Vaccine Administration [...] Fluvirin, Fluarix, Agriflu(>=18 yo)) Fluzone (>3 yrs.) [[id number]] Influenza, seasonal, injectable pneumococcal immunization administered Pneumovax [...] HGBA1C - Chemistry sodium, serum 130 mmol/L 168-154 1417/06/09 potassium, serum 4.0 mmol/L 3.5-5.2 chloride, serum 92 mmol/L 98-107 carbon dioxide, venous blood 22.1 mmol/L 21.0-32.0 blood glucose 60 mg/dL 65-110 calcium, serum 9.5 mg/dL 8.5-10.1 urea nitrogen, blood 14 mg/dL 7-18 creatinine, serum 1.30 mg/dL 0.60-1.30 hemoglobin A1C, blood, as % of total hemoglobin 6.0 % 4.3-6.0 sodium, serum 131 mmol/L 397-094 4512/12/30 potassium, serum 5.0 mmol/L 3.5-5.2 chloride, serum 95 mmol/L 98-107 carbon dioxide, venous blood 26.7 mmol/L 21.0-32.0 blood glucose 112 mg/dL 65-110 calcium, serum 9.2 mg/dL 8.5-10.1 urea nitrogen, blood 12 mg/dL 7-18 creatinine, serum 1.10 mg/dL 0.60-1.30 hemoglobin A1C, blood, as % of total hemoglobin 5.8 % 4.3-6.0 Lab Report: Comp. Metabolic Panel - Chemistry sodium, serum 127 mmol/L 284-796 9521/10/27 potassium, serum 4.1 mmol/L 3.5-5.2 chloride, serum [...] mg/dL Encounters Code Encounter Date Provider Facility CPT-07669 Level 3 Est. Patient 12:57:49 CDT Vanessa Hickey MD [facility]-22924 Level 3 Est. Patient 00:28:25 CDT Alina Castaneda MD [facility]-48966 Level 2 Est. Patient 12:52:14 CDT Alina Castaneda MD [facility]-21745 Level 3 Est. Patient 11:51:18 MANAGER EMPLOYEE RELATIONS Alina Castaneda MD [facility] CPT-15730 Level 3 Est. Patient 10:09:22 MANAGER EMPLOYEE RELATIONS Alina Castaneda MD [facility]-14081 Level 3 Est. Patient 14:36:26 MANAGER EMPLOYEE RELATIONS Marvel Charles [facility] CPT-30205 Level 3 Est. Patient 13:34:47 MANAGER EMPLOYEE RELATIONS Alina Castaneda MD [facility]-13986 Level 3 Est. Patient 19:52:08 MANAGER EMPLOYEE RELATIONS Alina Castaneda MD [facility] CPT-17359 Level 3 Est. Patient 10:01:51 MANAGER EMPLOYEE RELATIONS Marvel Charles [facility]-20937 Level 3 Est. Patient 21:54:06 CDT Vanessa Hickey MD [facility]-46758 Level 3 Est. Patient 08:54:46 CDT Alina Castaneda MD [facility]-94818 Level 3 Est. Patient 09:32:11 [facility]-04327 Level 3 Est. Patient 12:02:49 CDT Alina Castaneda MD [facility]-03590 Level 3 Est. Patient 19:17:33 CDT Alina Castaneda MD [facility]-01656 Level 3 Est. Patient 13:19:10 CDT Brooksjohn Charles [facility]-86238 Level 3 Est. Patient 08:20:05 CDT Alina Castaneda MD [facility]99008 Level 3 Est. Patient 15:17:18 CDT Alina Castaneda MD [facility]09174 Level 3 Est. Patient 14:25:36 MANAGER EMPLOYEE REL[facility]-13253 Level 3 Est. Patient 10:09:15 MANAGER EMPLOYEE RELATIONS Marvel Araceli [facility]-05340 Level 3 Est. Patient 21:28:43 CDT Alina Castaneda MD [facility]-83433 Level 3 Est. Patient 15:20:11 CDT Brooksjohn Charles [facility]-95180 Level 4 Est. Patient 19:08:12 CDT Alina Castaneda MD [facility]-89823 Level 3 Est. Patient 15:06:39 CDT Brooksjohn Charles [facility]-14428 Level 4 Est. Patient 17:48:15 CDT Alina Castaneda MD [facility]59520 Level 3 Est. Patient 14:53:49 CDT Alina Castaneda MD [facility]79828 Level 3 Est. Patient 09:35:16 CDT Alina Castaneda MD [facility]47877 Level 3 Est. Patient 12:23:22 CDT Alina Castaneda MD [facility]-52424 Level 3 Est. Patient 16:19:15 CDT Alina Castaneda MD [facility]90075 Level 3 Est. Patient 21:39:56 MANAGER EMPLOYEE RELATIONS Alina Castaneda MD [facility]-58074 Level 4 Est. Patient 14:12:56 MANAGER EMPLOYEE RELATIONS Alina Castaneda MD [facility]24194 Level 2 Est. Patient 15:34:57 MANAGER EMPLOYEE RELATIONS Alina Castaneda MD [facility]78415 Level 3 Est. Patient 12:17:04 MANAGER EMPLOYEE RELATIONS Alina Castaneda MD [facility]19815 Level 3 Est. Patient 09:18:18 MANAGER EMPLOYEE RELATIONS [facility]-38663 Level 2 Est. Patient 21:50:24 CDT Alina Castaneda MD [facility]-34235 Level 3 Est. Patient 09:17:28 CDT Marvel Charles [facility]-30931 Level 4 Est. Patient 18:54:02 CDT Alina Castaneda MD [facility]76986 Level 3 Est. Patient 10:47:10 CDT Alina Castaneda MD [facility]01299 Level 3 Est. Patient 09:22:20 CDT Marvel Charles [facility]-54896 Level 3 Est. Patient 16:39:43 CDT Marvel Charles [facility]-73129 Level 3 Est. Patient 16:05:16 CDT Alina Castaneda MD [facility]84849 Level 3 Est. Patient 00:29:15 CDT Alina Castaneda MD PhD [facility] CPT-24662 Level 3 Est. Patient 10:49:22 MANAGER EMPLOYEE RELATIONS Marvel Charles [facility] CPT-89202 Level 3 Est. Patient 21:30:19 MANAGER EMPLOYEE RELATIONS Alina Castaneda MD PhD [facility] CPT-03677 Level 4 Est. Patient 17:04:11 MANAGER EMPLOYEE RELATIONS Brooksnivia Charles [facility] CPT-08576 Level 3 Est. Patient 15:34:11 MANAGER EMPLOYEE RELATIONS [facility]6 Level 2 Est. Patient 12:51:58 MANAGER EMPLOYEE RELATIONS Alina Castaneda MD [facility] CPT-65209 Level 3 Est. Patient 13:20:01 MANAGER EMPLOYEE RELATIONS Alina Castaneda MD [facility] CPT-49033 Level 3 Est. Patient 09:23:35 CDT Alina Castaneda MD PhD [facility] Procedures Code Procedure Name Date Entry Date Standard Description CPT-24091 Bladder Scan 21:54:06 CDT CPT-G0008 Administration of Influenza Virus Vaccine 13:05:26 CDT CPT-47601 Fluzone Quadrivalent Intramuscular Suspension 0.5 ML 13: 05:26 CDT CPT-06702 Administration single or combination vaccine inc oral 11 :49:51 CDT CPT-33380 Pneumovax 11:49:51 CDT CPT-49137 Ribs unilateral 2V 12:37:22 MANAGER EMPLOYEE RELATIONS CPT-27058 Chest 2V Frontal and Lat 17:15:26 CDT CPT-44573 Abx/Therapy Injection 18:54:02 CDT CPT-J0696 Rocephin 1000 mg (Ceftriaxone) 16:00:32 CDT CPT-26587 Chest 2V Frontal and Lat 15:26:45 CDT CPT-71642 Chest 2V Frontal and Lat 10:23:27 CDT CPT-58650 Venipuncture Draw Fee 10:11:00 CDT CPT-06624 Administration single or combination vaccine inc oral 11 :56:38 CDT CPT-62267 Influenza split virus > age 3 11:56:38 CDT CPT-33293 Venipuncture Draw Fee 08:49:54 MANAGER EMPLOYEE RELATIONS CPT-71249 EKG Trac and Interp 17:54:19 MANAGER EMPLOYEE RELATIONS
--- OUTSIDE RECORDS SUMMARY | 2018-07-02 17:01 | XMS REPORT | Clinical Summary ---
Author Author Admin, TERELL Organization [facility] Address Unknown Phone Unavailable Allergies, Adverse Reactions, [...] as uncontrolled SUBDURAL HEMATOMA 432.1 Resolved Alina aCstaneda MD PhD Subdural hemorrhage Diabetes mellitus, type 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 Erazo QUALITY TESTER Benign paroxysmal positional vertigo Vertigo, benign paroxysmal position 386.11 Inactive Mima Erazo QUALITY TESTER Benign paroxysmal positional vertigo High-risk sexual behavior V69.2 Active Alina Castaneda MD PhD High-risk sexual behavior Erectile dysfunction 302.72 Active Alina Castaneda MD PhD Psychosexual dysfunction with inhibited sexual excitement Constipation 564.00 Active Alina Castaneda MD PhD Constipation, unspecified Skin lesion 709.9 Active Alina Castaneda MD PhD Unspecified disorder of skin and subcutaneous tissue Malaise and fatigue 780.79 Active Cherelle Speaks QUALITY TESTER Other malaise and fatigue Diarrhea 787.91 Active Cherelle Speaks QUALITY TESTER Diarrhea PHARYNGITIS 462 Active Cherelle Speaks QUALITY TESTER Acute pharyngitis Colitis 558.9 Active Mima Erazo QUALITY TESTER Other and unspecified noninfectious gastroenteritis and colitis WOUND, OPEN, NOSE ICD-873.20 Inactive Alina Castaneda MD PhD DIABETES, TYPE 2 ICD-250.00 Inactive Alina Castaneda MD PhD HYPERTENSION ICD-401.9 Inactive Alina Castaneda MD PhD URI ICD-465.9 Inactive Alina Castaneda MD PhD CHEST PAIN ICD-786.50 Inactive Alina Castaneda MD PhD FH STROKE ICD-V17.1 Inactive Marvel Charles STITCHER HAND FATIGUE ICD-780.79 Inactive Alina Castaneda MD PhD [...] mouth twice daily, for constipation DOCUSATE SODIUM 26595300386 No Longer Active Mima Erazo APRN Active FLONASE ALLERGY RELIEF 50 MCG/ACT NASAL SUSP One spray each nostril BID x 1 week then daily FLUTICASONE PROPIONATE 22823774290 Active Mimacecily Erazo APRN Active BD PEN NEEDLE MINI U/F 31G X 5 MM MISC 4 a day INSULIN PEN NEEDLE 69838238889 Active Mallashondaeh Ziglari STITCHER HAND Active AMITIZA 24 MCG ORAL CAPS Take one capsule BID for constipation LUBIPROSTONE 35881444996 Active Mimacecily Erazo APRN Active LEVEMIR FLEXTOUCH 100 UNIT/ML SC SOPN 75 units SQ each evening, for diabetes INSULIN DETEMIR 49090659056 Active Mima Erazo APRN Active TRUEPLUS LANCETS 30G MISC 3 a day LANCETS 96910890583 Active Mallashondaeh Ziglari STITCHER HAND Active TOLTERODINE TARTRATE 2 MG TABS 1 pill twice daily, for bladder TOLTERODINE TARTRATE 30470667906 No Longer Active Vanessa Hickey MD Active AMITIZA 24 MCG ORAL CAPS Take one capsule BID for constipation. LUBIPROSTONE 95595193948 No Longer Active Vanessa Hickey MD Active LOMOTIL 2.5-0.025 MG ORAL TABS take 1-2 tabs PO after each stool, no more than 8 in 24 hours DIPHENOXYLATE-ATROPINE 41786510434 Active Grace Nascimento RMA Active FLUVOXAMINE MALEATE 100 MG ORAL TABS take one tab every AM et HS, and take 1/ 2 tab at noon FLUVOXAMINE MALEATE 63221845780 Active Gracekailee Nascimento RMA Active METOPROLOL SUCCINATE 100 MG [id number] 1 by mouth daily for blood pressure METOPROLOL SUCCINATE 34296177885 No Longer Active Grace Nascimento RMA Active METFORMIN HCL ER 500 MG [id number] Take three tablets by mouth everyday METFORMIN HCL 53062394191 No Longer Active Grace Nascimento RMA Active LOVAZA 1 GM CAPS 4 daily (for triglycerides) OMEGA-3- ACID ETHYL ESTERS 17152651650 No Longer Active Grace Nascimento RMA Active TRAZODONE HCL 100 MG ORAL TABS 1 tab by mouth for sleep TRAZODONE HCL 20804062680 No Longer Active Grace Nascimento RMA Active NOVOFINE 32G X 6 MM MISC use one four times per day INSULIN PEN NEEDLE 73330137959 No Longer Active Grace Nascimento RMA Active BACTROBAN 2 % CREAM Apply to affected area BID for up to 10 days MUPIROCIN CALCIUM 91691140757 No Longer Active Grace Nascimento RMA Active ZOFRAN 4 MG TABS 1 po q4hr PRN Nausea ONDANSETRON HCL 76179517013 Active Salina Han RMA Active KEFLEX 500 MG CAP 1 po BID x 7 days CEPHALEXIN 91642912374 No Longer Active Cherelle Avila APRN Active FLUVOXAMINE MALEATE 100 MG TABS Take one (1) tablet by mouth am, 1/2 at noon FLUVOXAMINE MALEATE 39160725660 No Longer Active Mima Erazo QUALITY TESTER Active CORICIDIN HBP CONGESTION/COUGH 10-200 MG ORAL CAPS Take as directed on box as needed for cold/flu symptoms DEXTROMETHORPHAN-GUAIFENESIN 15754024756 Active Cherelle Speaks QUALITY TESTER Active OMEGA-3 300 MG ORAL CAPS 4 caps by mouth daily OMEGA-3 FATTY ACIDS 45744108347 Active Mima Erazo QUALITY TESTER Active FLUVOXAMINE MALEATE 100 MG ORAL TABS Take 1/2 tab at noon FLUVOXAMINE MALEATE 97447669725 No Longer Active Cherelle Speaks QUALITY TESTER Active [facility] LU[facility] E[facility] DROPS 0.4-0.3 % OPHTH SOLN POLYETHYL GLYCOL-PROPYL GLYCOL 56201210859 Active Mima Erazo QUALITY TESTER Active CLONAZEPAM 1 MG TABS 1/2 pill by mouth three times daily CLONAZEPAM 86456333391 Active Mason Loredo MD Active MIRALAX POWD 17g by mouth daily, for constipation POLYETHYLENE GLYCOL 3350 52694403799 Active Alina Castaneda MD PhD Active HYDROCODONE-ACETAMINOPHEN 5-325 MG TABS 2 tabs by mouth three times daily for pain HYDROCODONE-ACETAMINOPHEN 90217311147 Active Mima Erazo QUALITY TESTER Active HUMALOG KWIKPEN 100 UNIT/ML SC SOPN 20 units with breakfast, 10 units with lunch, 10 units with dinner, for diabetes INSULIN LISPRO (HUMAN ) 35531666711 Active Alina Castaneda MD PhD Active LATUDA 120 MG ORAL TABS 1 pill by mouth nightly LURASIDONE HCL 46987158127 Active Alina Castaneda MD PhD Active TRUETEST TEST STRP check blood sugars 3x/day GLUCOSE BLOOD 34896724074 Active Marvel Charles STITCHER HAND Active ACCU-CHEK ROSA UZMA Use device to check blood sugars BLOOD GLUCOSE MONITORING SUPPL 75597966224 No Longer Active Marvel Charles STITCHER HAND Active ACCU-CHEK ROSA INVITR STRP use strips with device to check blood sugars 3 times daily GLUCOSE BLOOD 40905863458 No Longer Active Marvel MARROQUIN Active VERAPAMIL HCL ER 180 MG ORAL CR-TABS 1 pill by mouth twice daily, for migraine prevention VERAPAMIL HCL 46008609802 Active CRYSTAL Rodrigues Active CYCLOBENZAPRINE HCL 10 MG TABS 1 tablet by mouth three times daily, scheduled CYCLOBENZAPRINE HCL 43310666144 No Longer Active Alina Castaneda MD PhD Active HUMALOG 100 UNIT/ML SOLN Take 20 units with breakfast, 10u with lunch and suppetr. INSULIN LISPRO (HUMAN) 87793407366 No Longer Active Alina Castaneda MD PhD Active TRUETEST TEST STRP check sugars 4x/day GLUCOSE BLOOD 82914129667 No Longer Active Alina Castaneda MD PhD Active MORPHINE SULFATE 30 MG TABS 1 pill by mouth twice daily, for pain MORPHINE SULFATE 49323656899 Active Mason Loredo MD Active ACYCLOVIR 400 MG ORAL TABS 1 pill three times daily x 5 days, for cold sore outbreak ACYCLOVIR 68159073258 No Longer Active Alina Castaneda MD PhD Active PENICILLIN V POTASSIUM 500 MG TABS 1 pill by mouth three times daily PENICILLIN V POTASSIUM 05885633733 No Longer Active Alina Castaneda MD PhD Active UROXATRAL 10 MG HU27Z-WLB Take 1 tablet by mouth daily ALFUZOSIN HCL 33441600654 No Longer Active Alina Castaneda MD PhD Active THIOTHIXENE 5 MG CAPS by mouth twice a day THIOTHIXENE 97681341085 No Longer Active Alina Castaneda MD PhD Active ZYPREXA 7.5 MG TABS 1 at HS OLANZAPINE 27475412888 No Longer Active Alina Castaneda MD PhD Active BD INSULIN SYRINGE 28G X 1/2" 1 ML MISC 1 four times per day INSULIN SYRINGE-NEEDLE U-100 87844566388 Active Marvel MARROQUIN Active DETROL LA 4 MG PD11O-GEH Take 1 tablet by mouth daily TOLTERODINE TARTRATE 46204716023 No Longer Active Alina Castaneda MD PhD Active TERESE CONTOUR TEST STRP monitor blood sugars 3x/day GLUCOSE BLOOD 98252666433 No Longer Active Alina Castaneda MD PhD Active EQL TRUETEST TEST STRP Test blood sugar TID GLUCOSE BLOOD 26694426618 No Longer Active Alina Castaneda MD PhD Active FLUTICASONE PROPIONATE 50 MCG/ACT SUSP 2 sprays each nostril qDay x 30 days FLUTICASONE PROPIONATE 06935143740 No Longer Active Alina Castaneda MD PhD Active IBUPROFEN 200 MG TABS 1 Q 6 hr. PRN IBUPROFEN 74711751834 No Longer Active lAina Castaneda MD PhD Active NIACIN ER 500 MG CR-TABS 4 qHS (for triglycerides) NIACIN 01720916063 No Longer Active Alina Castaneda MD PhD Active ALFUZOSIN HCL ER 10 MG [id number]-HPH 1 tablet daily ALFUZOSIN HCL 70570809822 Active CRYSTAL Rodrigues Active SAPHRIS 5 MG SUBL by mouth twice a day ASENAPINE MALEATE 84020910648 No Longer Active Marvel MARROQUIN Active ACETAMINOPHEN 500 MG TABS 2 Q 6 hr. PRN ACETAMINOPHEN 78288379296 No Longer Active Marvel MARROQUIN Active ORPHENADRINE CITRATE ER 100 MG [id number]-VPX 1 every 12 hr. as needed ORPHENADRINE CITRATE 14913188351 No Longer Active Alina Castaneda MD PhD Active NIACIN CR 500 MG CR-TABS 2 qHS NIACIN 76487307826 No Longer Active Alina Castaneda MD PhD Active AMOXICILLIN 500 MG CAPS 2 po BID x 10 days AMOXICILLIN 25505279250 No Longer Active Alina Castaneda MD PhD Active HYDROCODONE-ACETAMINOPHEN 7.5-325 MG TABS 1 four times a day as needed for pain HYDROCODONE-ACETAMINOPHEN 20747856267 No Longer Active Alina Castaneda MD PhD Active DOXEPIN HCL 10 MG CAPS Take 1 tablet by mouth daily DOXEPIN HCL 52558233414 No Longer Active Salina Han A Active NAVANE 10 MG CAPS 1/2 tablet twice a day THIOTHIXENE No Longer Active Salnia Han A Active CYCLOBENZAPRINE HCL 10 MG TABS 1/2 tablet by mouth every 8 hours as needed for muscle spasms CYCLOBENZAPRINE HCL 05508104466 No Longer Active Alina Castaneda MD PhD Active BACTROBAN 2 % CREAM apply to ear and nose twice daily MUPIROCIN CALCIUM 63822591903 No Longer Active Alina Castaneda MD PhD Active HYDROCODONE-ACETAMINOPHEN 5-325 MG TABS take one tablet by mouth every four hours as needed for pain HYDROCODONE-ACETAMINOPHEN 54251992786 No Longer Active Alina Castaneda MD PhD Active ZOLPIDEM TARTRATE 10 MG TABS take at bedtime ZOLPIDEM TARTRATE 82902182262 Active Alina Castaneda MD PhD Active ZYPREXA 5 MG TABS take one tablet by mouth every evening OLANZAPINE 79563140813 No Longer Active Alina Castaneda MD PhD Active ALBUTEROL SULFATE 0.083 % NEBU SOLN one vial per nebulizer TID and PRN cough/ soa ALBUTEROL SULFATE 14621897738 No Longer Active Alina Castaneda MD PhD Active GUAIFENESIN 600 MG [id number]-WVY 1 tablet by mouth twice daily if needed for cough GUAIFENESIN 39305265500 No Longer Active Marvel MARROQUIN Active AZITHROMYCIN 500 MG SOLR 1 po q day AZITHROMYCIN 79398569202 No Longer Active Alina Castaneda MD PhD Active PROMETHAZINE-CODEINE 6.25-10 MG/5ML SYRP 1 tsp po q 6 hours prn cough PROMETHAZINE-CODEINE 18248120008 No Longer Active Alina Castaneda MD PhD Active CEFDINIR 300 MG CAPS by mouth twice a day CEFDINIR 55846756300 No Longer Active Alina Castaneda MD PhD Active METFORMIN HCL 500 MG [id number]-AIA Take 3 tablets by mouth everyday METFORMIN HCL 63938432666 No Longer Active Alina Castaneda MD PhD Active LEVEMIR 100 UNIT/ML SOLN 90 units SQ qHS INSULIN DETEMIR 45333050255 No Longer Active Marvel MARROQUIN Active TOPROL XL 100 MG XH54F-SMS 1 @ HS METOPROLOL SUCCINATE 84648753465 No Longer Active Marvel MARROQUIN Active ALLOPURINOL 300 MG TABS Take one by mouth daily ALLOPURINOL 19342417459 Active Mima Erazo QUALITY TESTER Active ZYPREXA 10 MG TABS Take one by mouth daily OLANZAPINE 76535947832 No Longer Active Alina Castaneda MD PhD Active NOVOLOG 100 UNIT/ML SOLN 40 units with every meal INSULIN ASPART 25573497087 No Longer Active Alina Castaneda MD PhD Active VERAPAMIL HCL CR 120 MG TAB CR 1 qPM VERAPAMIL HCL 36741324393 No Longer Active Salina ROJAS Active ZYPREXA 15 MG TABS Take 1 tablet by mouth daily OLANZAPINE 57400833862 No Longer Active Marvel MARROQUIN Active LISINOPRIL 20 MG TABS 1 BID LISINOPRIL 64100361657 Active Alina Castaneda MD PhD Active ALBUTEROL SULFATE (2.5 MG/3ML) 0.083% NEBU 1 neb tid and prn cough ALBUTEROL SULFATE 41624094635 No Longer Active Alina Castaneda MD PhD Active TRAVATAN Z 0.004 % SOLN 1 gtt each eye daily TRAVOPROST 68959686591 Active CRYSTAL Suarez Active LANTUS 100 UNIT/ML SOLN 60 units sq q hs INSULIN GLARGINE 97521982468 No Longer Active CRYSTAL Suarez Active ALBUTEROL SULFATE (2.5 MG/3ML) 0.083% NEBU 1 neb tid and prn cough ALBUTEROL SULFATE (2.5 MG/3ML) 0.083% NEBU 841239 ALBUTEROL SULFATE Inactive ZYPREXA 15 MG TABS Take 1 tablet by mouth daily ZYPREXA 15 MG TABS 342779 OLANZAPINE Inactive VERAPAMIL HCL CR 120 MG TAB CR 1 qPM VERAPAMIL HCL CR 120 MG TAB CR VERAPAMIL HCL Inactive ZYPREXA 10 MG TABS Take one by mouth daily ZYPREXA 10 MG TABS 294275 OLANZAPINE Inactive TOPROL XL 100 MG [id number] 1 @ HS TOPROL XL 100 MG EY64R-BAL METOPROLOL SUCCINATE Inactive LEVEMIR 100 UNIT/ML SOLN 90 units SQ qHS LEVEMIR 100 UNIT/ML SOLN INSULIN DETEMIR Inactive PROMETHAZINE-CODEINE 6.25-10 MG/5ML SYRP 1 tsp po q 6 hours prn cough PROMETHAZINE-CODEINE 6.25-10 MG/5ML SYRP 666372 PROMETHAZINE- CODEINE Inactive GUAIFENESIN 600 MG WZ39Y-VKE 1 tablet by mouth twice daily if needed for cough GUAIFENESIN 600 MG [id number]-RSC GUAIFENESIN Inactive ALBUTEROL SULFATE 0.083 % NEBU SOLN one vial per nebulizer TID and PRN cough/ soa ALBUTEROL SULFATE 0.083 % NEBU SOLN 848618 ALBUTEROL SULFATE Inactive ZYPREXA 5 MG TABS take one tablet by mouth every evening ZYPREXA 5 MG TABS 713066 OLANZAPINE Inactive HYDROCODONE-ACETAMINOPHEN 5-325 MG TABS take one tablet by mouth every four hours as needed for pain HYDROCODONE-ACETAMINOPHEN 5-325 MG TABS 846878 HYDROCODONE-ACETAMINOPHEN Inactive BACTROBAN 2 % CREAM apply to ear and nose twice daily BACTROBAN 2 % CREAM 621001 MUPIROCIN CALCIUM Inactive CYCLOBENZAPRINE HCL 10 MG TABS 1/2 tablet by mouth every 8 hours as needed for muscle spasms CYCLOBENZAPRINE HCL 10 MG TABS 378441 CYCLOBENZAPRINE HCL Inactive NAVANE 10 MG CAPS 1/2 tablet twice a day NAVANE 10 MG CAPS THIOTHIXENE Inactive DOXEPIN HCL 10 MG CAPS Take 1 tablet by mouth daily DOXEPIN HCL 10 MG CAPS 1953895 DOXEPIN HCL Inactive HYDROCODONE-ACETAMINOPHEN 7.5-325 MG TABS 1 four times a day as needed for pain HYDROCODONE-ACETAMINOPHEN 7.5-325 MG TABS 712451 HYDROCODONE-ACETAMINOPHEN Inactive NIACIN CR 500 MG CR-TABS 2 qHS NIACIN CR 500 MG CR- TABS NIACIN Inactive ORPHENADRINE CITRATE ER 100 MG [id number] 1 every 12 hr. as needed ORPHENADRINE CITRATE ER 100 MG PC76A-XZZ ORPHENADRINE CITRATE Inactive ACETAMINOPHEN 500 MG TABS 2 Q 6 hr. PRN ACETAMINOPHEN 500 MG TABS 101355 ACETAMINOPHEN Inactive SAPHRIS 5 MG SUBL by mouth twice a day SAPHRIS 5 MG SUBL ASENAPINE MALEATE Inactive NIACIN ER 500 MG CR-TABS 4 qHS (for triglycerides) NIACIN ER 500 MG CR-TABS NIACIN Inactive IBUPROFEN 200 MG TABS 1 Q 6 hr. PRN IBUPROFEN 200 MG TABS 680965 IBUPROFEN Inactive FLUTICASONE PROPIONATE 50 MCG/ACT SUSP 2 sprays each nostril qDay x 30 days FLUTICASONE PROPIONATE 50 MCG/ACT SUSP 948892 FLUTICASONE PROPIONATE Inactive EQL TRUETEST TEST STRP Test blood sugar TID EQL TRUETEST TEST STRP GLUCOSE BLOOD Inactive TERESE CONTOUR TEST STRP monitor blood sugars 3x/day TERESE CONTOUR TEST STRP GLUCOSE BLOOD Inactive DETROL LA 4 MG [id number]-[id number] Take 1 tablet by mouth daily DETROL LA 4 MG PQ91X-CPI TOLTERODINE TARTRATE Inactive ZYPREXA 7.5 MG TABS 1 at HS ZYPREXA 7.5 MG TABS 205996 OLANZAPINE Inactive THIOTHIXENE 5 MG CAPS by mouth twice a day THIOTHIXENE 5 MG CAPS 283369 THIOTHIXENE Inactive UROXATRAL 10 MG RL01X-XJX Take 1 tablet by mouth daily UROXATRAL 10 MG IN25P-ARW ALFUZOSIN HCL Inactive ACYCLOVIR 400 MG ORAL TABS 1 pill three times daily x 5 days, for cold sore outbreak ACYCLOVIR 400 MG ORAL TABS 493848 ACYCLOVIR Inactive TRUETEST TEST STRP check sugars 4x/day TRUETEST TEST STRP GLUCOSE BLOOD Inactive HUMALOG 100 UNIT/ML SOLN Take 20 units with breakfast, 10u with lunch and suppetr. HUMALOG 100 UNIT/ML SOLN INSULIN LISPRO ( HUMAN) Inactive CYCLOBENZAPRINE HCL 10 MG TABS 1 tablet by mouth three times daily, scheduled CYCLOBENZAPRINE HCL 10 MG TABS 046297 CYCLOBENZAPRINE HCL Inactive ACCU-CHEK ROSA INVITR STRP use strips with device to check blood sugars 3 times daily ACCU-CHEK ROSA INVITR STRP GLUCOSE BLOOD Inactive ACCU-CHEK ROSA UZMA Use device to check blood sugars ACCU-CHEK ROSA UZMA BLOOD GLUCOSE MONITORING SUPPL Inactive FLUVOXAMINE MALEATE 100 MG ORAL TABS Take 1/2 tab at noon FLUVOXAMINE MALEATE 100 MG ORAL TABS 879045 FLUVOXAMINE MALEATE Inactive FLUVOXAMINE MALEATE 100 MG TABS Take one (1) tablet by mouth am, 1/2 at noon FLUVOXAMINE MALEATE 100 MG TABS 842541 FLUVOXAMINE MALEATE Inactive BACTROBAN 2 % CREAM Apply to affected area BID for up to 10 days BACTROBAN 2 % CREAM 335317 MUPIROCIN CALCIUM Inactive NOVOFINE 32G X 6 MM MISC use one four times per day NOVOFINE 32G X 6 MM MISC INSULIN PEN NEEDLE Inactive TRAZODONE HCL 100 MG ORAL TABS 1 tab by mouth for sleep TRAZODONE HCL 100 MG ORAL TABS 656325 TRAZODONE HCL Inactive LOVAZA 1 GM CAPS 4 daily (for triglycerides) LOVAZA 1 GM CAPS 710536 AUTZT-2-OHRP ETHYL ESTERS Inactive METFORMIN HCL ER 500 MG BJ25H-NIX Take three tablets by mouth everyday METFORMIN HCL ER 500 MG CJ02W-SIN METFORMIN HCL Inactive METOPROLOL SUCCINATE 100 MG TR27G-EFY 1 by mouth daily for blood pressure METOPROLOL SUCCINATE 100 MG OJ72X-ROP METOPROLOL SUCCINATE Inactive AMITIZA 24 MCG ORAL CAPS Take one capsule BID for constipation. AMITIZA 24 MCG ORAL CAPS LUBIPROSTONE Inactive TOLTERODINE TARTRATE 2 MG TABS 1 pill twice daily, for bladder TOLTERODINE TARTRATE 2 MG TABS 505993 TOLTERODINE TARTRATE Inactive COLACE 100 MG CAPS 1 pill by mouth twice daily, for constipation COLACE 100 MG CAPS 4201249 DOCUSATE SODIUM Inactive CEFDINIR 300 MG CAPS by mouth twice a day CEFDINIR 300 MG CAPS 400615 CEFDINIR Inactive AZITHROMYCIN 500 MG SOLR 1 po q day AZITHROMYCIN 500 MG SOLR 61214515041 AZITHROMYCIN Inactive AMOXICILLIN 500 MG CAPS 2 po BID x 10 days AMOXICILLIN 500 MG CAPS 096124 AMOXICILLIN Inactive PENICILLIN V POTASSIUM 500 MG TABS 1 pill by mouth three times daily PENICILLIN V POTASSIUM 500 MG TABS 204147 PENICILLIN V POTASSIUM Inactive KEFLEX 500 MG CAP 1 po BID x 7 days KEFLEX 500 MG CAP 803910 CEPHALEXIN Inactive Immunizations Vaccine Administration Date Value [...] Fluvirin, Fluarix, Agriflu(>=18 yo)) Fluzone (>3 yrs.) [[id number]] Influenza, seasonal, injectable pneumococcal immunization administered Pneumovax [...] Panel - Chemistry sodium, serum 137 mmol/L 269-461 8598/10/12 potassium, serum 4.8 mmol/L 3.5-5.2 chloride, serum 102 mmol/L 98-107 carbon dioxide, venous blood 27.6 mmol/L 21.0-32.0 blood glucose 168 mg/dL 65-110 calcium, serum 9.0 mg/dL 8.5-10.1 urea nitrogen, blood 15 mg/dL 7-18 creatinine, serum 1.04 mg/dL 0.55-1.30 sodium, serum 138 mmol/L 266-367 1398/11/11 potassium, serum 4.7 mmol/L 3.5-5.2 chloride, serum [...] % 11.6-14.8 platelet count 240 10^3/MM^3 10*3/mm3 204-189 7897/11/11 leukocyte count, blood 9.6 10^3/MM^3 10*3/mm3 4.6-10.2 [...] Acid - Chemistry cholesterol, serum 187 mg/dL 619-121 1377/06/14 triglyceride, serum, fasting 246 mg/dL 30-200 HDL [...] 4.7 mg/dL 2.6-7.2 cholesterol, serum 142 mg/dL 956-593 0858/06/26 triglyceride, serum, fasting 272 mg/dL 30-200 HDL [...] negative Encounters Code Encounter Date Provider Facility CPT-43529 Level 3 Est. Patient 16:27:51 CDT Mima Erazo [facility] CPT-43390 Level 3 Est. Patient 14:39:00 ATTENDING PSYCHIATRIST Vanessa iHckey MD [facility]-32403 Level 2 Est. Patient 18:43:34 CDT Mima Erazo [facility] CPT-92633 Level 3 Est. Patient 16:22:09 CDT Cherelle Avila [facility] CPT-14027 Level 4 Est. Patient 17:55:14 CDT Mima Erazo [facility] CPT-19921 Level 2 Est. Patient 17:13:21 CDT Alina Castaneda MD PhD [facility] CPT-96237 Level 3 Est. Patient 14:46:15 CDT Vanessa Hickey MD [facility]-08320 Level 3 Est. Patient 09:34:56 CDT Alina Castaneda MD PhD [facility]77989 Level 3 Est. Patient 21:40:19 CDT Mima Erazo [facility] CPT-84932 Level 3 Est. Patient 09:26:40 CDT Marvel Charles [facility]-43014 Level 3 Est. Patient 12:36:43 CDT Vanessa Hickey MD [facility]-54616 Level 3 Est. Patient 12:57:49 CDT Vanessa Hickey MD [facility]-74132 Level 3 Est. Patient 00:28:25 CDT Alina Castaneda MD [facility]98784 Level 2 Est. Patient 12:52:14 CDT Alina Castaneda MD [facility]15026 Level 3 Est. Patient 11:51:18 ATTENDING PSYCHIATRIST Alina Castaneda MD [facility]93664 Level 3 Est. Patient 10:09:22 ATTENDING PSYCHIATRIST Alina Castaneda MD [facility]93874 Level 3 Est. Patient 14:36:26 ATTENDING PSYCHIATRIST Marvel Charles [facility]-82199 Level 3 Est. Patient 13:34:47 ATTENDING PSYCHIATRIST Alina Castaneda MD [facility]32555 Level 3 Est. Patient 19:52:08 ATTENDING PSYCHIATRIST Alina Castaneda MD [facility]72692 Level 3 Est. Patient 10:01:51 ATTENDING PSYCHIATRIST Marvel Charles [facility]-19133 Level 3 Est. Patient 21:54:06 CDT Vanessa Hickey MD [facility]-09400 Level 3 Est. Patient 08:54:46 CDT Alina Castaneda MD [facility]57241 Level 3 Est. Patient 09:32:11 CDT Marvel Charles [facility] [place] Level 3 Est. Patient 12:02:49 CDT Alina Castaneda MD [facility]54197 Level 3 Est. Patient 19:17:33 CDT Alina Castaneda MD [facility]-73302 Level 3 Est. Patient 13:19:10 CDT Marvel Gurdeepajayestela [facility]-54470 Level 3 Est. Patient 08:20:05 CDT Alina Castaneda MD [facility]-07831 Level 3 Est. Patient 15:17:18 CDT Alina Castaneda MD [facility]-06466 Level 3 Est. Patient 14:25:36 [facility]-54781 Level 3 Est. Patient 10:09:15 [facility]ATRIST [facility] Est. Patient 21:28:43 CDT Alina Castaneda MD [facility]-63576 Level 3 Est. Patient 15:20:11 [facility]-63159 Level 4 Est. Patient 19:08:12 CDT Alina Castaneda MD [facility]-25024 Level 3 Est. Patient 15:06:39 CDT Marvel Araceli [facility]-39613 Level 4 Est. Patient 17:48:15 CDT Alina Castaneda MD [facility]-76677 Level 3 Est. Patient 14:53:49 CDT Alina Castaneda MD [facility]-81310 Level 3 Est. Patient 09:35:16 CDT Alina Castaneda MD [facility]-08315 Level 3 Est. Patient 12:23:22 CDT Alina Castaneda MD [facility]-18139 Level 3 Est. Patient 16:19:15 CDT Alina Castaneda MD [facility]-32535 Level 3 Est. Patient 21:39:56 ATTENDING PSYCHIATRIST Alina Castaneda MD [facility]-05183 Level 4 Est. Patient 14:12:56 ATTENDING PSYCHIATRIST Alina Castaneda MD [facility]-50484 Level 2 Est. Patient 15:34:57 ATTENDING PSYCHIATRIST Alina Castaneda MD [facility]-08517 Level 3 Est. Patient 12:17:04 ATTENDING PSYCHIATRIST Alina Castaneda MD [facility]-70703 Level 3 Est. Patient 09:18:18 ATTENDING PSYCHIATRIST [facility]-38807 Level 2 Est. Patient 21:50:24 CDT Alina Castaneda MD [facility]-83648 Level 3 Est. Patient 09:17:28 CDT Marvel Charles [facility]-70370 Level 4 Est. Patient 18:54:02 CDT Alina Castaneda MD [facility]-82822 Level 3 Est. Patient 10:47:10 CDT Alina Castaneda MD [facility]-45999 Level 3 Est. Patient 09:22:20 CDT [facility]-50378 Level 3 Est. Patient 16:39:43 CDT [facility]-29022 Level 3 Est. Patient 16:05:16 CDT Alina Castaneda MD [facility]-65709 Level 3 Est. Patient 00:29:15 CDT Alina Castaneda MD PhD [facility] CPT-18295 Level 3 Est. Patient 10:49:22 ATTENDING PSYCHIATRIST [facility] CPT-42857 Level 3 Est. Patient 21:30:19 ATTENDING PSYCHIATRIST Alina Castaneda MD PhD [facility] CPT-07561 Level 4 Est. Patient 17:04:11 ATTENDING PSYCHIATRIST [facility] CPT-22860 Level 3 Est. Patient 15:34:11 [facility]RIST [facility] CPT-84082 Level 2 Est. Patient 12:51:58 ATTENDING PSYCHIATRIST Alina Castaneda MD [facility] CPT-75258 Level 3 Est. Patient 13:20:01 ATTENDING PSYCHIATRIST Alina Castaneda MD PhD [facility] CPT-50298 Level 3 Est. Patient 09:23:35 CDT lAina Castaneda MD PhD [facility] Procedures Code Procedure Name Date Entry Date Standard Description CPT-48007 Bladder Scan 14:39:01 ATTENDING PSYCHIATRIST CPT-TCMM Transitional Care Mgmt-Moderate 10:30:19 ATTENDING PSYCHIATRIST CPT-38025 Bladder Scan 12:36:44 CDT CPT-25355 Bladder Scan 21:54:06 CDT CPT-G0008 Administration of Influenza Virus Vaccine 13:05:26 CDT CPT-46250 Fluzone Quadrivalent Intramuscular Suspension 0.5 ML 13: 05:26 CDT CPT-97168 Administration single or combination vaccine inc oral 11 :49:51 CDT CPT-83024 Pneumovax 11:49:51 CDT CPT-37663 Ribs unilateral 2V 12:37:22 ATTENDING PSYCHIATRIST CPT-82770 Chest 2V Frontal and Lat 17:15:26 CDT CPT-37069 Abx/Therapy Injection 18:54:02 CDT CPT-J0696 Rocephin 1000 mg (Ceftriaxone) 16:00:32 CDT CPT-20298 Chest 2V Frontal and Lat 15:26:45 CDT CPT-64061 Chest 2V Frontal and Lat 10:23:27 CDT CPT-98944 Venipuncture Draw Fee 10:11:00 CDT CPT-22587 Administration single or combination vaccine inc oral 11 :56:38 CDT CPT-89381 Influenza split virus > age 3 11:56:38 CDT CPT-98453 Venipuncture Draw Fee 08:49:54 ATTENDING PSYCHIATRIST CPT-36095 EKG Trac and Interp 17:54:19 ATTENDING PSYCHIATRIST
--- OUTSIDE RECORDS SUMMARY | 2018-07-02 17:03 | XMS REPORT | Clinical Summary ---
Author Author Admin, TERELL Organization [facility] Address Unknown Phone Unavailable Allergies, Adverse [...] uncomplicated Chest pain, atypical 786.59 Resolved Alina Catsaneda MD PhD Other chest pain Chest pain, atypical 786.59 Resolved Alina Castaneda MD PhD Other chest pain Urinary Retention 788.20 Active Vanessa Hickey MD Retention of urine, unspecified Benign paroxysmal positional vertigo 386.11 Active Mima Erazo SERVER MANAGER Benign paroxysmal positional vertigo Vertigo, benign paroxysmal position 386.11 Inactive Mima Erazo SERVER MANAGER Benign paroxysmal positional vertigo High-risk sexual behavior V69.2 Active Alina Castaneda MD PhD High-risk sexual behavior Erectile dysfunction 302.72 Active Alina Castaneda MD PhD Psychosexual dysfunction with inhibited sexual excitement Constipation 564.00 Active Alina Castaneda MD PhD Constipation, unspecified Skin lesion 709.9 Active Alina Castaneda MD PhD Unspecified disorder of skin and subcutaneous tissue Malaise and fatigue 780.79 Active Cherelle Speaks SERVER MANAGER Other malaise and fatigue Diarrhea 787.91 Active Cherelle Speaks SERVER MANAGER Diarrhea PHARYNGITIS 462 Active Cherelle Speaks SERVER MANAGER Acute pharyngitis Colitis 558.9 Active Mima Erazo SERVER MANAGER Other and unspecified noninfectious gastroenteritis and colitis WOUND, OPEN, NOSE ICD-873.20 Inactive Alina Castaneda MD PhD DIABETES, TYPE 2 ICD-250.00 Inactive Alina Castaneda MD PhD HYPERTENSION ICD-401.9 Inactive Alina Castaneda MD PhD URI ICD-465.9 Inactive Alina Castaneda MD PhD CHEST PAIN ICD-786.50 Inactive Alina Castaneda MD PhD FH STROKE ICD-V17.1 Inactive Marvel Charles WARRANT SERVER FATIGUE ICD-780.79 Inactive Alina Castaneda MD PhD [...] Inactive Marvel 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 Inactive Alnia Castaneda MD PhD Diabetes mellitus, type II, [...] more than 8 in 24 hours DIPHENOXYLATE-ATROPINE 18705993172 Active Grace Azam RMA Active FLUVOXAMINE MALEATE 100 MG ORAL TABS take one tab every AM et HS, and take 1/ 2 tab at noon FLUVOXAMINE MALEATE 64191214684 Active Grace Azam RMA Active METOPROLOL SUCCINATE 100 MG IN69O-JNZ 1 by mouth daily for blood pressure METOPROLOL SUCCINATE 14597451959 No Longer Active Grace Azam RMA Active METFORMIN HCL ER 500 MG [id number]-RNB Take three tablets by mouth everyday METFORMIN HCL 89625898096 No Longer Active Grace Azam RMA Active LOVAZA 1 GM CAPS 4 daily (for triglycerides) OMEGA-3- ACID ETHYL ESTERS 10792836026 No Longer Active Grace Azam RMA Active TRAZODONE HCL 100 MG ORAL TABS 1 tab by mouth for sleep TRAZODONE HCL 98038755704 No Longer Active Grace Azam RMA Active NOVOFINE 32G X 6 MM MISC use one four times per day INSULIN PEN NEEDLE 39866575921 No Longer Active Grace Nascimento RMA Active BACTROBAN 2 % CREAM Apply to affected area BID for up to 10 days MUPIROCIN CALCIUM 51501662930 No Longer Active Grace Nascimento RMA Active ZOFRAN 4 MG TABS 1 po q4hr PRN Nausea ONDANSETRON HCL 19952569474 Active Salina Han RMA Active KEFLEX 500 MG CAP 1 po BID x 7 days CEPHALEXIN 29916622747 No Longer Active Cherelle Speaks SERVER MANAGER Active FLUVOXAMINE MALEATE 100 MG TABS Take one (1) tablet by mouth am, 1/2 at noon FLUVOXAMINE MALEATE 99386147093 No Longer Active Mima Vadimum SERVER MANAGER Active CORICIDIN HBP CONGESTION/COUGH 10-200 MG ORAL CAPS Take as directed on box as needed for cold/flu symptoms DEXTROMETHORPHAN-GUAIFENESIN 38898280962 Active Cherelle Speaks SERVER MANAGER Active OMEGA-3 300 MG ORAL CAPS 4 caps by mouth daily OMEGA-3 FATTY ACIDS 29542284918 Active Cherelle Speaks SERVER MANAGER Active FLUVOXAMINE MALEATE 100 MG ORAL TABS Take 1/2 tab at noon FLUVOXAMINE MALEATE 89052287541 No Longer Active Cherelle Speaks SERVER MANAGER Active [facility] LUBRICANT EYE DROPS 0.4-0.3 % OPHTH SOLN POLYETHYL GLYCOL-PROPYL GLYCOL 69890201652 Active Mima Yokum SERVER MANAGER Active CLONAZEPAM 1 MG TABS 1/2 pill by mouth three times daily CLONAZEPAM 08140296498 Active Alina Castaneda MD PhD Active MIRALAX POWD 17g by mouth daily, for constipation POLYETHYLENE GLYCOL 3350 57848752372 Active Alina Castaneda MD PhD Active HYDROCODONE-ACETAMINOPHEN 5-325 MG TABS 2 tabs by mouth three times daily for pain HYDROCODONE-ACETAMINOPHEN 50873405674 Active Mima Yokum SERVER MANAGER Active HUMALOG KWIKPEN 100 UNIT/ML SC SOPN 20 units with breakfast, 10 units with lunch, 10 units with dinner, for diabetes INSULIN LISPRO (HUMAN ) 55449989176 Active Alina Castaneda MD PhD Active LEVEMIR FLEXTOUCH 100 UNIT/ML SC SOPN 70 units SQ each evening, for diabetes INSULIN DETEMIR 07778128824 Active Alina Castaneda MD PhD Active LATUDA 120 MG ORAL TABS 1 pill by mouth nightly LURASIDONE HCL 19468317978 Active Alina Castaneda MD PhD Active COLACE 100 MG CAPS 1 pill by mouth twice daily, for constipation DOCUSATE SODIUM 51544379504 Active Alina Castaneda MD PhD Active TRUETEST TEST STRP check blood sugars 3x/day GLUCOSE BLOOD 58744786580 Active Marvel MENDOZAP Active ACCU-CHEK ROSA UZMA Use device to check blood sugars BLOOD GLUCOSE MONITORING SUPPL 25974609636 No Longer Active Marvel MRAROQUIN Active ACCU-CHEK ROSA INVITR STRP use strips with device to check blood sugars 3 times daily GLUCOSE BLOOD 22274234010 No Longer Active Marvel MARROQUIN Active VERAPAMIL HCL ER 180 MG ORAL CR-TABS 1 pill by mouth twice daily, for migraine prevention VERAPAMIL HCL 73748891912 Active Alina Castaneda MD PhD Active CYCLOBENZAPRINE HCL 10 MG TABS 1 tablet by mouth three times daily, scheduled CYCLOBENZAPRINE HCL 49230132278 No Longer Active Alina Castaneda MD PhD Active HUMALOG 100 UNIT/ML SOLN Take 20 units with breakfast, 10u with lunch and suppetr. INSULIN LISPRO (HUMAN) 77002913293 No Longer Active Alina Castaneda MD PhD Active TRUETEST TEST STRP check sugars 4x/day GLUCOSE BLOOD 02042444208 No Longer Active Alina Castaneda MD PhD Active MORPHINE SULFATE 30 MG TABS 1 pill by mouth twice daily, for pain MORPHINE SULFATE 56659520096 Active Mima Erazo SERVER MANAGER Active ACYCLOVIR 400 MG ORAL TABS 1 pill three times daily x 5 days, for cold sore outbreak ACYCLOVIR 19785024181 No Longer Active Alina Castaneda MD PhD Active PENICILLIN V POTASSIUM 500 MG TABS 1 pill by mouth three times daily PENICILLIN V POTASSIUM 24658452416 No Longer Active Alina Castaneda MD PhD Active UROXATRAL 10 MG MP35O-ARX Take 1 tablet by mouth daily ALFUZOSIN HCL 69762324478 No Longer Active Alina Castaneda MD PhD Active THIOTHIXENE 5 MG CAPS by mouth twice a day THIOTHIXENE 89662397957 No Longer Active Alina Castaneda MD PhD Active ZYPREXA 7.5 MG TABS 1 at HS OLANZAPINE 28052798274 No Longer Active Alina Castaneda MD PhD Active BD INSULIN SYRINGE 28G X 1/2" 1 ML MISC 1 four times per day INSULIN SYRINGE-NEEDLE U-100 34533458848 Active Brooksnivia Charles WARRANT SERVER Active TOLTERODINE TARTRATE 2 MG TABS 1 pill twice daily, for bladder TOLTERODINE TARTRATE 20785001672 Active Alina Castaneda MD PhD Active DETROL LA 4 MG GM83Z-RNL Take 1 tablet by mouth daily TOLTERODINE TARTRATE 54146609135 No Longer Active Alina Castaneda MD PhD Active TERESE CONTOUR TEST STRP monitor blood sugars 3x/day GLUCOSE BLOOD 99563305597 No Longer Active Alina Castaneda MD PhD Active EQL TRUETEST TEST STRP Test blood sugar TID GLUCOSE BLOOD 85667798650 No Longer Active Alina Castaneda MD PhD Active FLUTICASONE PROPIONATE 50 MCG/ACT SUSP 2 sprays each nostril qDay x 30 days FLUTICASONE PROPIONATE 90746676637 No Longer Active Alina Castaneda MD PhD Active IBUPROFEN 200 MG TABS 1 Q 6 hr. PRN IBUPROFEN 70057262953 No Longer Active Alina Castaneda MD PhD Active NIACIN ER 500 MG CR-TABS 4 qHS (for triglycerides) NIACIN 40882273342 No Longer Active Alina Castaneda MD PhD Active ALFUZOSIN HCL ER 10 MG [id number]-EFB 1 tablet daily ALFUZOSIN HCL 02299996076 Active Vanessa Hickey MD Active SAPHRIS 5 MG SUBL by mouth twice a day ASENAPINE MALEATE 64855014319 No Longer Active Maliheh Ziglari WARRANT SERVER Active ACETAMINOPHEN 500 MG TABS 2 Q 6 hr. PRN ACETAMINOPHEN 40888657787 No Longer Active Maliheh Ziglari WARRANT SERVER Active ORPHENADRINE CITRATE ER 100 MG EA62R-ZLA 1 every 12 hr. as needed ORPHENADRINE CITRATE 65720290863 No Longer Active Alina Castaneda MD PhD Active NIACIN CR 500 MG CR-TABS 2 qHS NIACIN 51298920384 No Longer Active Alina Castaneda MD PhD Active AMOXICILLIN 500 MG CAPS 2 po BID x 10 days AMOXICILLIN 97795662670 No Longer Active Ailna Castaneda MD PhD Active HYDROCODONE-ACETAMINOPHEN 7.5-325 MG TABS 1 four times a day as needed for pain HYDROCODONE-ACETAMINOPHEN 47369302723 No Longer Active Alina Castaneda MD PhD Active DOXEPIN HCL 10 MG CAPS Take 1 tablet by mouth daily DOXEPIN HCL 05080079329 No Longer Active Salina ROJAS Active NAVANE 10 MG CAPS 1/2 tablet twice a day THIOTHIXENE No Longer Active Salina ROJAS Active CYCLOBENZAPRINE HCL 10 MG TABS 1/2 tablet by mouth every 8 hours as needed for muscle spasms CYCLOBENZAPRINE HCL 28376684081 No Longer Active Alina Castaneda MD PhD Active BACTROBAN 2 % CREAM apply to ear and nose twice daily MUPIROCIN CALCIUM 79927611350 No Longer Active Alina Castaneda MD PhD Active HYDROCODONE-ACETAMINOPHEN 5-325 MG TABS take one tablet by mouth every four hours as needed for pain HYDROCODONE-ACETAMINOPHEN 12777144378 No Longer Active Alina Castaneda MD PhD Active ZOLPIDEM TARTRATE 10 MG TABS take at bedtime ZOLPIDEM TARTRATE 65648777074 Active Alina Castaneda MD PhD Active ZYPREXA 5 MG TABS take one tablet by mouth every evening OLANZAPINE 06249526955 No Longer Active Alina Castaneda MD PhD Active ALBUTEROL SULFATE 0.083 % NEBU SOLN one vial per nebulizer TID and PRN cough/ soa ALBUTEROL SULFATE 41196420329 No Longer Active Alina Castaneda MD PhD Active GUAIFENESIN 600 MG MI71T-IXH 1 tablet by mouth twice daily if needed for cough GUAIFENESIN 07312692810 No Longer Active Marvel MARROQUIN Active AZITHROMYCIN 500 MG SOLR 1 po q day AZITHROMYCIN 88038222048 No Longer Active Alina Castaneda MD PhD Active PROMETHAZINE-CODEINE 6.25-10 MG/5ML SYRP 1 tsp po q 6 hours prn cough PROMETHAZINE-CODEINE 95417710935 No Longer Active Alina Castaneda MD PhD Active CEFDINIR 300 MG CAPS by mouth twice a day CEFDINIR 26090644751 No Longer Active Alina Castaneda MD PhD Active METFORMIN HCL 500 MG [id number]-KVG Take 3 tablets by mouth everyday METFORMIN HCL 46276820646 No Longer Active Alina Castaneda MD PhD Active LEVEMIR 100 UNIT/ML SOLN 90 units SQ qHS INSULIN DETEMIR 22046647738 No Longer Active Marvel MARROQUIN Active TOPROL XL 100 MG BR59M-FFR 1 @ HS METOPROLOL SUCCINATE 54803097949 No Longer Active Marvel MARROQUIN Active ALLOPURINOL 300 MG TABS Take one by mouth daily ALLOPURINOL 57493933251 Active Alina Castaneda MD PhD Active ZYPREXA 10 MG TABS Take one by mouth daily OLANZAPINE 92800529399 No Longer Active Alina Castaneda MD PhD Active NOVOLOG 100 UNIT/ML SOLN 40 units with every meal INSULIN ASPART 81464194965 No Longer Active Alina Castaneda MD PhD Active VERAPAMIL HCL CR 120 MG TAB CR 1 qPM VERAPAMIL HCL 17016058745 No Longer Active Salina Han RMA Active ZYPREXA 15 MG TABS Take 1 tablet by mouth daily OLANZAPINE 80984481932 No Longer Active Brooksjohn Charles WARRANT SERVER Active LISINOPRIL 20 MG TABS 1 BID LISINOPRIL 17459132717 Active Alina Castaneda MD PhD Active ALBUTEROL SULFATE (2.5 MG/3ML) 0.083% NEBU 1 neb tid and prn cough ALBUTEROL SULFATE 01454640171 No Longer Active Alina Castaneda MD PhD Active TRAVATAN Z 0.004 % SOLN 1 gtt each eye daily TRAVOPROST 15624634951 Active CRYSTAL Suarez Active LANTUS 100 UNIT/ML SOLN 60 units sq q hs INSULIN GLARGINE 55166038755 No Longer Active CRYSTAL Suarez Active ALBUTEROL SULFATE (2.5 MG/3ML) 0.083% NEBU 1 neb tid and prn cough ALBUTEROL SULFATE (2.5 MG/3ML) 0.083% NEBU 221397 ALBUTEROL SULFATE Inactive ZYPREXA 15 MG TABS Take 1 tablet by mouth daily ZYPREXA 15 MG TABS 346361 OLANZAPINE Inactive VERAPAMIL HCL CR 120 MG TAB CR 1 qPM VERAPAMIL HCL CR 120 MG TAB CR VERAPAMIL HCL Inactive ZYPREXA 10 MG TABS Take one by mouth daily ZYPREXA 10 MG TABS 635390 OLANZAPINE Inactive TOPROL XL 100 MG [id number] 1 @ HS TOPROL XL 100 MG AD32K-PPJ METOPROLOL SUCCINATE Inactive LEVEMIR 100 UNIT/ML SOLN 90 units SQ qHS LEVEMIR 100 UNIT/ML SOLN INSULIN DETEMIR Inactive PROMETHAZINE-CODEINE 6.25-10 MG/5ML SYRP 1 tsp po q 6 hours prn cough PROMETHAZINE-CODEINE 6.25-10 MG/5ML SYRP 379433 PROMETHAZINE- CODEINE Inactive GUAIFENESIN 600 MG RP26G-IFM 1 tablet by mouth twice daily if needed for cough GUAIFENESIN 600 MG [id number]-YIM GUAIFENESIN Inactive ALBUTEROL SULFATE 0.083 % NEBU SOLN one vial per nebulizer TID and PRN cough/ soa ALBUTEROL SULFATE 0.083 % NEBU SOLN 476746 ALBUTEROL SULFATE Inactive ZYPREXA 5 MG TABS take one tablet by mouth every evening ZYPREXA 5 MG TABS 790432 OLANZAPINE Inactive HYDROCODONE-ACETAMINOPHEN 5-325 MG TABS take one tablet by mouth every four hours as needed for pain HYDROCODONE-ACETAMINOPHEN 5-325 MG TABS 681134 HYDROCODONE-ACETAMINOPHEN Inactive BACTROBAN 2 % CREAM apply to ear and nose twice daily BACTROBAN 2 % CREAM 844122 MUPIROCIN CALCIUM Inactive CYCLOBENZAPRINE HCL 10 MG TABS 1/2 tablet by mouth every 8 hours as needed for muscle spasms CYCLOBENZAPRINE HCL 10 MG TABS 474746 CYCLOBENZAPRINE HCL Inactive NAVANE 10 MG CAPS 1/2 tablet twice a day NAVANE 10 MG CAPS THIOTHIXENE Inactive DOXEPIN HCL 10 MG CAPS Take 1 tablet by mouth daily DOXEPIN HCL 10 MG CAPS 2647105 DOXEPIN HCL Inactive HYDROCODONE-ACETAMINOPHEN 7.5-325 MG TABS 1 four times a day as needed for pain HYDROCODONE-ACETAMINOPHEN 7.5-325 MG TABS 127509 HYDROCODONE-ACETAMINOPHEN Inactive NIACIN CR 500 MG CR-TABS 2 qHS NIACIN CR 500 MG CR- TABS NIACIN Inactive ORPHENADRINE CITRATE ER 100 MG MO69O-VIP 1 every 12 hr. as needed ORPHENADRINE CITRATE ER 100 MG [id number]-YSO ORPHENADRINE CITRATE Inactive ACETAMINOPHEN 500 MG TABS 2 Q 6 hr. PRN ACETAMINOPHEN 500 MG TABS 555725 ACETAMINOPHEN Inactive SAPHRIS 5 MG SUBL by mouth twice a day SAPHRIS 5 MG SUBL ASENAPINE MALEATE Inactive NIACIN ER 500 MG CR-TABS 4 qHS (for triglycerides) NIACIN ER 500 MG CR-TABS NIACIN Inactive IBUPROFEN 200 MG TABS 1 Q 6 hr. PRN IBUPROFEN 200 MG TABS 771918 IBUPROFEN Inactive FLUTICASONE PROPIONATE 50 MCG/ACT SUSP 2 sprays each nostril qDay x 30 days FLUTICASONE PROPIONATE 50 MCG/ACT SUSP 687057 FLUTICASONE PROPIONATE Inactive EQL TRUETEST TEST STRP Test blood sugar TID EQL TRUETEST TEST STRP GLUCOSE BLOOD Inactive TERESE CONTOUR TEST STRP monitor blood sugars 3x/day TERESE CONTOUR TEST STRP GLUCOSE BLOOD Inactive DETROL LA 4 MG SC45M-CTL Take 1 tablet by mouth daily DETROL LA 4 MG WL45B-LZL TOLTERODINE TARTRATE Inactive ZYPREXA 7.5 MG TABS 1 at HS ZYPREXA 7.5 MG TABS 402649 OLANZAPINE Inactive THIOTHIXENE 5 MG CAPS by mouth twice a day THIOTHIXENE 5 MG CAPS 944046 THIOTHIXENE Inactive UROXATRAL 10 MG EJ39X-BSZ Take 1 tablet by mouth daily UROXATRAL 10 MG RX91L-FFT ALFUZOSIN HCL Inactive ACYCLOVIR 400 MG ORAL TABS 1 pill three times daily x 5 days, for cold sore outbreak ACYCLOVIR 400 MG ORAL TABS 034145 ACYCLOVIR Inactive TRUETEST TEST STRP check sugars 4x/day TRUETEST TEST STRP GLUCOSE BLOOD Inactive HUMALOG 100 UNIT/ML SOLN Take 20 units with breakfast, 10u with lunch and suppetr. HUMALOG 100 UNIT/ML SOLN INSULIN LISPRO ( HUMAN) Inactive CYCLOBENZAPRINE HCL 10 MG TABS 1 tablet by mouth three times daily, scheduled CYCLOBENZAPRINE HCL 10 MG TABS 876710 CYCLOBENZAPRINE HCL Inactive ACCU-CHEK ROSA INVITR STRP use strips with device to check blood sugars 3 times daily ACCU-CHEK ROSA INVITR STRP GLUCOSE BLOOD Inactive ACCU-CHEK ROSA UZMA Use device to check blood sugars ACCU-CHEK ROSA UZMA BLOOD GLUCOSE MONITORING SUPPL Inactive FLUVOXAMINE MALEATE 100 MG ORAL TABS Take 1/2 tab at noon FLUVOXAMINE MALEATE 100 MG ORAL TABS 280488 FLUVOXAMINE MALEATE Inactive FLUVOXAMINE MALEATE 100 MG TABS Take one (1) tablet by mouth am, 1/2 at noon FLUVOXAMINE MALEATE 100 MG TABS 345464 FLUVOXAMINE MALEATE Inactive BACTROBAN 2 % CREAM Apply to affected area BID for up to 10 days BACTROBAN 2 % CREAM 685855 MUPIROCIN CALCIUM Inactive NOVOFINE 32G X 6 MM MISC use one four times per day NOVOFINE 32G X 6 MM MISC INSULIN PEN NEEDLE Inactive TRAZODONE HCL 100 MG ORAL TABS 1 tab by mouth for sleep TRAZODONE HCL 100 MG ORAL TABS 373527 TRAZODONE HCL Inactive LOVAZA 1 GM CAPS 4 daily (for triglycerides) LOVAZA 1 GM CAPS 938040 PMZDV-1-TMUP ETHYL ESTERS Inactive METFORMIN HCL ER 500 MG FH94S-FDL Take three tablets by mouth everyday METFORMIN HCL ER 500 MG FQ06U-PDR METFORMIN HCL Inactive METOPROLOL SUCCINATE 100 MG ER28B-SFU 1 by mouth daily for blood pressure METOPROLOL SUCCINATE 100 MG HD07B-ESW METOPROLOL SUCCINATE Inactive CEFDINIR 300 MG CAPS by mouth twice a day CEFDINIR 300 MG CAPS 000581 CEFDINIR Inactive AZITHROMYCIN 500 MG SOLR 1 po q day AZITHROMYCIN 500 MG SOLR 553181 AZITHROMYCIN Inactive AMOXICILLIN 500 MG CAPS 2 po BID x 10 days AMOXICILLIN 500 MG CAPS 461046 AMOXICILLIN Inactive PENICILLIN V POTASSIUM 500 MG TABS 1 pill by mouth three times daily PENICILLIN V POTASSIUM 500 MG TABS 095977 PENICILLIN V POTASSIUM Inactive KEFLEX 500 MG CAP 1 po BID x 7 days KEFLEX 500 MG CAP 201787 CEPHALEXIN Inactive Immunizations Vaccine Administration Date Value [...] Fluvirin, Fluarix, Agriflu(>=18 yo)) Fluzone (>3 yrs.) [[id number]] Influenza, seasonal, injectable pneumococcal immunization administered Pneumovax [...] HGBA1C - Chemistry sodium, serum 131 mmol/L 400-229 0651/12/30 potassium, serum 5.0 mmol/L 3.5-5.2 chloride, serum 95 mmol/L 98-107 carbon dioxide, venous blood 26.7 mmol/L 21.0-32.0 blood glucose 112 mg/dL 65-110 calcium, serum 9.2 mg/dL 8.5-10.1 urea nitrogen, blood 12 mg/dL 7-18 creatinine, serum 1.10 mg/dL 0.60-1.30 hemoglobin A1C, blood, as % of total hemoglobin 5.8 % 4.3-6.0 Lab Report: Basic Metabolic Panel, HGBA1C, MICROALBUMIN - Chemistry sodium, serum 137 mmol/L 438-626 8656/05/19 potassium, serum 5.2 mmol/L 3.5-5.2 chloride, serum [...] Panel - Chemistry sodium, serum 137 mmol/L 365-833 5257/10/12 potassium, serum 4.8 mmol/L 3.5-5.2 chloride, serum 102 mmol/L 98-107 carbon dioxide, venous blood 27.6 mmol/L 21.0-32.0 blood glucose 168 mg/dL 65-110 calcium, serum 9.0 mg/dL 8.5-10.1 urea nitrogen, blood 15 mg/dL 7-18 creatinine, serum 1.04 mg/dL 0.55-1.30 sodium, serum 138 mmol/L 061-391 0320/11/11 potassium, serum 4.7 mmol/L 3.5-5.2 chloride, serum [...] % 11.6-14.8 platelet count 252 10^3/MM^3 10*3/mm3 689-401 7210/10/12 leukocyte count, blood 5.8 10^3/MM^3 10*3/mm3 4.6-10.2 [...] 240 10^3/MM^3 10*3/mm3 142-424 Lab Report: Chlamydia/GC APTIMA/92215, HIV-1/2 Agn/Dominga/85252, RPR (DX) W ... - Chemistry hepatitis B surface antigen NON-REACTIVE NON-REACTIVE Lab Report: Chlamydia/GC APTIMA/96594, HIV-1/2 Agn/Dominga/54129, RPR (DX) W ... - Lab chlamydia DNA probe NOT DETECTED NOT DETECTED Lab Report: Chlamydia/GC APTIMA/30196, HIV-1/2 Agn/Dominga/57710, RPR (DX) W ... - Microbiology Neisseria gonorrhoeae DNA probe NOT DETECTED NOT DETECTED Lab Report: Chlamydia/GC APTIMA/08341, HIV-1/2 Agn/Dominga/63500, RPR (DX) W ... - Serology rapid plasma reagin antibody titer NON-REACTIVE NON-REACTIVE Lab Report: HGBA1C - Chemistry hemoglobin A1C, blood, as % of total hemoglobin 6.1 % 4.3-6.0 Lab Report: Lipid Panel, HEPATIC PANEL, MICROALBUMIN, CBC - Chemistry cholesterol, serum 131 mg/dL 841-853 6587/06/03 triglyceride, serum, fasting 383 mg/dL 30-200 HDL [...] 4.7 mg/dL 2.6-7.2 cholesterol, serum 142 mg/dL 426-056 0353/06/26 triglyceride, serum, fasting 272 mg/dL 30-200 HDL [...] negative Encounters Code Encounter Date Provider Facility CPT-18634 Level 3 Est. Patient 14:39:00 BALLROOM DANCE INSTRUCTOR Vanessa Hickey MD [facility] CPT-07990 Level 2 Est. Patient 18:43:34 CDT Mima Erazo [facility] CPT-04707 Level 3 Est. Patient 16:22:09 CDT Cherelle Avila [facility]-89495 Level 4 Est. Patient 17:55:14 CDT Mima Erazo [facility] CPT-65472 Level 2 Est. Patient 17:13:21 CDT Alina Castaneda MD [facility]01519 Level 3 Est. Patient 14:46:15 CDT Vanessa Hickey MD [facility]-73360 Level 3 Est. Patient 09:34:56 CDT Alina Castaneda MD [facility]49442 Level 3 Est. Patient 21:40:19 CDT Mima Erazo [facility]-19516 Level 3 Est. Patient 09:26:40 CDT Marvel Charles [facility]-46530 Level 3 Est. Patient 12:36:43 CDT Vanessa Hickey MD [facility]05996 Level 3 Est. Patient 12:57:49 CDT Vanessa Hickey MD [facility]-66454 Level 3 Est. Patient 00:28:25 CDT Alina Castaneda MD [facility]-66958 Level 2 Est. Patient 12:52:14 CDT Alina Castaneda MD [facility]77245 Level 3 Est. Patient 11:51:18 BALLROOM DANCE INSTRUCTOR Alina Castaneda MD [facility]50685 Level 3 Est. Patient 10:09:22 BALLROOM DANCE INSTRUCTOR Alina Castaneda MD [facility]49170 Level 3 Est. Patient 14:36:26 BALLROOM DANCE INSTRUCTOR Marvel Charles [facility]39077 Level 3 Est. Patient 13:34:47 BALLROOM DANCE INSTRUCTOR Alina Castaneda MD PhD [facility]-98062 Level 3 Est. Patient 19:52:08 BALLROOM DANCE INSTRUCTOR Alina Castaneda MD [facility]-23587 Level 3 Est. Patient 10:01:51 BALLROOM DANCE INSTRUCTOR Marvel Gurdeepajayestela [facility]-75040 Level 3 Est. Patient 21:54:06 CDT Vanessa Hickey MD [facility]-86133 Level 3 Est. Patient 08:54:46 CDT Alina Castaneda MD [facility]-58119 Level 3 Est. Patient 09:32:11 CDT [facility] Level 3 Est. Patient 12:02:49 CDT Alina Castaneda MD [facility]-84096 Level 3 Est. Patient 19:17:33 CDT Alina Castaneda MD [facility]-83827 Level 3 Est. Patient 13:19:10 CDT Brooksjohn Charles [facility]-46071 Level 3 Est. Patient 08:20:05 CDT Alina Castaneda MD [facility]-30182 Level 3 Est. Patient 15:17:18 CDT Alina Castaneda MD [facility]-76369 Level 3 Est. Patient 14:25:36 BALLROOM DANCE INSTRUCTOR Brookslashondanivia Araceli [facility]-17429 Level 3 Est. Patient 10:09:15 BALLROOM DANCE INSTRUCTOR Marvel Araceli [facility]-50739 Level 3 Est. Patient 21:28:43 CDT Alina Castaneda MD [facility]-20248 Level 3 Est. Patient 15:20:11 CDT Marvel Charles [facility] CPT-58559 Level 4 Est. Patient 19:08:12 CDT Alina Castaneda MD [facility]-41718 Level 3 Est. Patient 15:06:39 CDT Wmchealthnivia Charles [facility]-89459 Level 4 Est. Patient 17:48:15 CDT Alina Castaneda MD [facility]-49581 Level 3 Est. Patient 14:53:49 CDT Alina Castaneda MD [facility]-10749 Level 3 Est. Patient 09:35:16 CDT Alina Castaneda MD [facility]-33283 Level 3 Est. Patient 12:23:22 CDT Alina Castaneda MD [facility]-63670 Level 3 Est. Patient 16:19:15 CDT Alina Castaneda MD [facility]-78404 Level 3 Est. Patient 21:39:56 BALLROOM DANCE INSTRUCTOR Alina Castaneda MD [facility]-93571 Level 4 Est. Patient 14:12:56 BALLROOM DANCE INSTRUCTOR Alina Castaneda MD [facility]-06465 Level 2 Est. Patient 15:34:57 BALLROOM DANCE INSTRUCTOR Alina Castaneda MD [facility]-69924 Level 3 Est. Patient 12:17:04 BALLROOM DANCE INSTRUCTOR Alina Castaneda MD [facility]-03523 Level 3 Est. Patient 09:18:18 BALLROOM DANCE INSTRUCTOR Marvel Charles [facility]-61357 Level 2 Est. Patient 21:50:24 CDT Alina Castaneda MD [facility]84716 Level 3 Est. Patient 09:17:28 CDT Marvel Araceli [facility]-19766 Level 4 Est. Patient 18:54:02 CDT Alina Castaneda MD [facility]-07976 Level 3 Est. Patient 10:47:10 CDT Alina Castaneda MD [facility]-20691 Level 3 Est. Patient 09:22:20 CDT Marvel Araceli [facility] [place]-[address] Level 3 Est. Patient 16:39:43 CDT Marvel Araceli [facility] [place]-[address]70 Level 3 Est. Patient 16:05:16 CDT Alina Castaneda MD [facility]-76360 Level 3 Est. Patient 00:29:15 CDT Alina Castaneda MD [facility]-57417 Level 3 Est. Patient 10:49:22 BALLROOM DANCE INSTRUCTOR Brookslashondanivia Araceli [facility] [place]-[address] Level 3 Est. Patient 21:30:19 BALLROOM DANCE INSTRUCTOR Alina Castaneda MD [facility]-94815 Level 4 Est. Patient 17:04:11 BALLROOM DANCE INSTRUCTOR Brookslashondanivia Araceli [facility] [place]-[address]502 Level 3 Est. Patient 15:34:11 BALLROOM DANCE INSTRUCTOR Brookslashondanivia Araceli [facility] [place]-[address]02 Level 2 Est. Patient 12:51:58 BALLROOM DANCE INSTRUCTOR Alina Castaneda MD [facility]-98809 Level 3 Est. Patient 13:20:01 BALLROOM DANCE INSTRUCTOR Alina Castaneda MD [facility]-62099 Level 3 Est. Patient 09:23:35 CDT Alina Castaneda MD [facility] Procedures Code Procedure Name Date Entry Date Standard Description CPT-43603 Bladder Scan 14:39:01 BALLROOM DANCE INSTRUCTOR CPT-TCMM Transitional Care Mgmt-Moderate 10:30:19 BALLROOM DANCE INSTRUCTOR CPT-20491 Bladder Scan 12:36:44 CDT CPT-17717 Bladder Scan 21:54:06 CDT CPT-G0008 Administration of Influenza Virus Vaccine 13:05:26 CDT CPT-96651 Fluzone Quadrivalent Intramuscular Suspension 0.5 ML 13: 05:26 CDT CPT-35960 Administration single or combination vaccine inc oral 11 :49:51 CDT CPT-20027 Pneumovax 11:49:51 CDT CPT-94372 Ribs unilateral 2V 12:37:22 BALLROOM DANCE INSTRUCTOR CPT-67805 Chest 2V Frontal and Lat 17:15:26 CDT CPT-68479 Abx/Therapy Injection 18:54:02 CDT CPT-J0696 Rocephin 1000 mg (Ceftriaxone) 16:00:32 CDT CPT-50427 Chest 2V Frontal and Lat 15:26:45 CDT CPT-33172 Chest 2V Frontal and Lat 10:23:27 CDT CPT-76259 Venipuncture Draw Fee 10:11:00 CDT CPT-78182 Administration single or combination vaccine inc oral 11 :56:38 CDT CPT-37108 Influenza split virus > age 3 11:56:38 CDT CPT-24395 Venipuncture Draw Fee 08:49:54 BALLROOM DANCE INSTRUCTOR CPT-59186 EKG Trac and Interp 17:54:19 BALLROOM DANCE INSTRUCTOR
--- OUTSIDE RECORDS SUMMARY | 2018-07-02 17:05 | XMS REPORT | Clinical Summary ---
Author Author Admin, TERELL Organization [facility] Address Unknown Phone Unavailable Allergies, Adverse Reactions, [...] Inactive Alina Castaneda MD PhD Hypoglycemia ICD-251.2 Roro Castaneda [...] Name NDC Status Provider Patient Instruction HUMALOG KWIKPEN 100 UNIT/ML SC SOPN 20 units with breakfast, 10 units with lunch, 10 units with dinner, for diabetes INSULIN LISPRO (HUMAN ) 05321530097 Active Alina Castaneda MD PhD Active LEVEMIR FLEXTOUCH 100 UNIT/ML SC SOPN 70 units SQ each evening, for diabetes INSULIN DETEMIR 89693045990 Active Alina Castaneda MD PhD Active LATUDA 120 MG ORAL TABS 1 pill by mouth nightly LURASIDONE HCL 35509024742 Active Alina Castaenda MD PhD Active COLACE 100 MG CAPS 1 pill by mouth twice daily, for constipation DOCUSATE SODIUM 50180202358 Active Alina Castaneda MD PhD Active TRUETEST TEST STRP check blood sugars 3x/day GLUCOSE BLOOD 03385333803 Active Marvel Mackenzieglari NEWSPAPER WRITER Active ACCU-CHEK ROSA UZMA Use device to check blood sugars BLOOD GLUCOSE MONITORING SUPPL 56196007696 No Longer Active Marvel MARROQUIN Active ACCU-CHEK ROSA INVITR STRP use strips with device to check blood sugars 3 times daily GLUCOSE BLOOD 08457301979 No Longer Active Marvel MARROQUIN Active VERAPAMIL HCL ER 180 MG ORAL CR-TABS 1 pill by mouth twice daily, for migraine prevention VERAPAMIL HCL 42007171093 Active Alina Castaneda MD PhD Active CYCLOBENZAPRINE HCL 10 MG TABS 1 tablet by mouth three times daily, scheduled CYCLOBENZAPRINE HCL 08671359676 No Longer Active Alina Castaneda MD PhD Active HUMALOG 100 UNIT/ML SOLN Take 20 units with breakfast, 10u with lunch and suppetr. INSULIN LISPRO (HUMAN) 81831423020 No Longer Active Alina Castaneda MD PhD Active TRUETEST TEST STRP check sugars 4x/day GLUCOSE BLOOD 62965790639 No Longer Active Alina Castaneda MD PhD Active MORPHINE SULFATE 30 MG TABS 1 pill by mouth twice daily, for pain MORPHINE SULFATE 15142072593 Active Alina Castaneda MD PhD Active ACYCLOVIR 400 MG ORAL TABS 1 pill three times daily x 5 days, for cold sore outbreak ACYCLOVIR 52641463988 No Longer Active Alina Castaneda MD PhD Active PENICILLIN V POTASSIUM 500 MG TABS 1 pill by mouth three times daily PENICILLIN V POTASSIUM 31996882047 No Longer Active Alina Castaneda MD PhD Active UROXATRAL 10 MG [id number] Take 1 tablet by mouth daily ALFUZOSIN HCL 63088941820 No Longer Active Alina Castaneda MD PhD Active THIOTHIXENE 5 MG CAPS by mouth twice a day THIOTHIXENE 50715955492 No Longer Active Alina Castaneda MD PhD Active ZYPREXA 7.5 MG TABS 1 at HS OLANZAPINE 30881992736 No Longer Active Alina Castaneda MD PhD Active BD INSULIN SYRINGE 28G X 1/2" 1 ML MISC 1 four times per day INSULIN SYRINGE-NEEDLE U-100 97919185849 Active Marvel Charles [facility] Active TOLTERODINE TARTRATE 2 MG TABS 1 pill twice daily, for bladder TOLTERODINE TARTRATE 14192455037 Active Alina Castaneda MD PhD Active DETROL LA 4 MG [id number] Take 1 tablet by mouth daily TOLTERODINE TARTRATE 94095505962 No Longer Active Alina Castaneda MD PhD Active HYDROCODONE-ACETAMINOPHEN 5-325 MG TABS 2 tabs by mouth three times daily as needed for pain HYDROCODONE-ACETAMINOPHEN 28265393558 Active Alina Castaneda MD PhD Active TERESE CONTOUR TEST STRP monitor blood sugars 3x/day GLUCOSE BLOOD 08200971044 No Longer Active Alina Castaneda MD PhD Active EQL TRUETEST TEST STRP Test blood sugar TID GLUCOSE BLOOD 81228381595 No Longer Active Alina Castaneda MD PhD Active FLUTICASONE PROPIONATE 50 MCG/ACT SUSP 2 sprays each nostril qDay x 30 days FLUTICASONE PROPIONATE 43284995573 No Longer Active Alina Castaneda MD PhD Active IBUPROFEN 200 MG TABS 1 Q 6 hr. PRN IBUPROFEN 70782480955 No Longer Active Alina Castaneda MD PhD Active NIACIN ER 500 MG CR-TABS 4 qHS (for triglycerides) NIACIN 75236091982 No Longer Active Alina Castaneda MD PhD Active ALFUZOSIN HCL ER 10 MG [id number] 1 tablet daily ALFUZOSIN HCL 77655626696 Active Vanessa Hickey MD Active CLONAZEPAM 1 MG TABS 1 pill by mouth three times daily CLONAZEPAM 76514951948 Active Alina Castaneda MD PhD Active LOVAZA 1 GM CAPS 4 daily (for triglycerides) [id number] ETHYL ESTERS 51549573046 Active Alina Castaneda MD PhD Active SAPHRIS 5 MG SUBL by mouth twice a day ASENAPINE MALEATE 36529362260 No Longer Active Marvel MARROQUIN Active ACETAMINOPHEN 500 MG TABS 2 Q 6 hr. PRN ACETAMINOPHEN 62826899171 No Longer Active Marvel MARROQUIN Active ORPHENADRINE CITRATE ER 100 MG [id number] 1 every 12 hr. as needed ORPHENADRINE CITRATE 99645645986 No Longer Active Alina Castaneda MD PhD Active NIACIN CR 500 MG CR-TABS 2 qHS NIACIN 74793300469 No Longer Active Alina Castaneda MD PhD Active AMOXICILLIN 500 MG CAPS 2 po BID x 10 days AMOXICILLIN 79873947222 No Longer Active Alina Castaneda MD PhD Active HYDROCODONE-ACETAMINOPHEN 7.5-325 MG TABS 1 four times a day as needed for pain HYDROCODONE-ACETAMINOPHEN 72990148647 No Longer Active Alina Castaneda MD PhD Active METFORMIN HCL ER 500 MG [id number] Take three tablets by mouth everyday METFORMIN HCL 56731986180 Active Marvel MARROQUIN Active DOXEPIN HCL 10 MG CAPS Take 1 tablet by mouth daily DOXEPIN HCL 51738255318 No Longer Active Salina Emely [facility] Active NAVANE 10 MG CAPS 1/2 tablet twice a day THIOTHIXENE No Longer Active Salina Han [facility] Active CYCLOBENZAPRINE HCL 10 MG TABS 1/2 tablet by mouth every 8 hours as needed for muscle spasms CYCLOBENZAPRINE HCL 88843251746 No Longer Active Alina Castaneda MD PhD Active BACTROBAN 2 % CREAM apply to ear and nose twice daily MUPIROCIN CALCIUM 79986156210 No Longer Active Alina Castaneda MD PhD Active HYDROCODONE-ACETAMINOPHEN 5-325 MG TABS take one tablet by mouth every four hours as needed for pain HYDROCODONE-ACETAMINOPHEN 16635817826 No Longer Active Alina Castaneda MD PhD Active ZOLPIDEM TARTRATE 10 MG TABS take at bedtime ZOLPIDEM TARTRATE 06227800444 Active Alina Castaneda MD PhD Active ZYPREXA 5 MG TABS take one tablet by mouth every evening OLANZAPINE 57679574983 No Longer Active Alina Castaneda MD PhD Active ALBUTEROL SULFATE 0.083 % NEBU SOLN one vial per nebulizer TID and PRN cough/ soa ALBUTEROL SULFATE 52813983266 No Longer Active Alina Castaneda MD PhD Active GUAIFENESIN 600 MG AV15R-IYS 1 tablet by mouth twice daily if needed for cough GUAIFENESIN 58543663517 No Longer Active Marvel Charles NEWSPAPER WRITER Active AZITHROMYCIN 500 MG SOLR 1 po q day AZITHROMYCIN 09460885080 No Longer Active Alina Castaneda MD PhD Active METOPROLOL SUCCINATE 100 MG [id number] 1 by mouth daily for blood pressure METOPROLOL SUCCINATE 08638043889 Active Alina Castaneda MD PhD Active PROMETHAZINE-CODEINE 6.25-10 MG/5ML SYRP 1 tsp po q 6 hours prn cough PROMETHAZINE-CODEINE 03881068138 No Longer Active Alina Castaneda MD PhD Active CEFDINIR 300 MG CAPS by mouth twice a day CEFDINIR 43889488139 No Longer Active Alina Castaneda MD PhD Active METFORMIN HCL 500 MG LL91U-CSF Take 3 tablets by mouth everyday METFORMIN HCL 97318709655 No Longer Active Alina Castaneda MD PhD Active LEVEMIR 100 UNIT/ML SOLN 90 units SQ qHS INSULIN DETEMIR 69473142524 No Longer Active Marvel MARROQUIN Active TOPROL XL 100 MG [id number] 1 @ HS METOPROLOL SUCCINATE 04933734926 No Longer Active Marvel MARROQUIN Active ALLOPURINOL 300 MG TABS Take one by mouth daily ALLOPURINOL 16532031205 Active Alina Castaneda MD PhD Active ZYPREXA 10 MG TABS Take one by mouth daily OLANZAPINE 20903357519 No Longer Active Alina Castaneda MD PhD Active NOVOLOG 100 UNIT/ML SOLN 40 units with every meal INSULIN ASPART 51138698310 No Longer Active Alina Castaneda MD PhD Active VERAPAMIL HCL CR 120 MG TAB CR 1 qPM VERAPAMIL HCL 96862247731 No Longer Active Salina Han A Active ZYPREXA 15 MG TABS Take 1 tablet by mouth daily OLANZAPINE 95397545436 No Longer Active Marvel MARROQUIN Active LISINOPRIL 20 MG TABS 1 BID LISINOPRIL 96491099053 Active Alina Castaneda MD PhD Active ALBUTEROL SULFATE (2.5 MG/3ML) 0.083% NEBU 1 neb tid and prn cough ALBUTEROL SULFATE 27227450214 No Longer Active Alina Castaneda MD PhD Active FLUVOXAMINE MALEATE 100 MG TABS Take one (1) tablet by mouth am, 1/2 at noon, 1 pm FLUVOXAMINE MALEATE 71292153002 Active Alina Castaneda MD PhD Active TRAVATAN Z 0.004 % SOLN 1 gtt each eye daily TRAVOPROST 49141428170 Active CRYSTAL Suarez Active LANTUS 100 UNIT/ML SOLN 60 units sq q hs INSULIN GLARGINE 10425308125 No Longer Active CRYSTAL Suarez Active ALBUTEROL SULFATE (2.5 MG/3ML) 0.083% NEBU 1 neb tid and prn cough ALBUTEROL SULFATE (2.5 MG/3ML) 0.083% NEBU 154188 ALBUTEROL SULFATE Inactive ZYPREXA 15 MG TABS Take 1 tablet by mouth daily ZYPREXA 15 MG TABS 672481 OLANZAPINE Inactive VERAPAMIL HCL CR 120 MG TAB CR 1 qPM VERAPAMIL HCL CR 120 MG TAB CR VERAPAMIL HCL Inactive ZYPREXA 10 MG TABS Take one by mouth daily ZYPREXA 10 MG TABS 642348 OLANZAPINE Inactive TOPROL XL 100 MG [id number] 1 @ HS TOPROL XL 100 MG [id number] METOPROLOL SUCCINATE Inactive LEVEMIR 100 UNIT/ML SOLN 90 units SQ qHS LEVEMIR 100 UNIT/ML SOLN INSULIN DETEMIR Inactive PROMETHAZINE-CODEINE 6.25-10 MG/5ML SYRP 1 tsp po q 6 hours prn cough PROMETHAZINE-CODEINE 6.25-10 MG/5ML SYRP 113977 PROMETHAZINE- CODEINE Inactive GUAIFENESIN 600 MG PX27A-VPA 1 tablet by mouth twice daily if needed for cough GUAIFENESIN 600 MG JV74A-UXP GUAIFENESIN Inactive ALBUTEROL SULFATE 0.083 % NEBU SOLN one vial per nebulizer TID and PRN cough/ soa ALBUTEROL SULFATE 0.083 % NEBU SOLN 496475 ALBUTEROL SULFATE Inactive ZYPREXA 5 MG TABS take one tablet by mouth every evening ZYPREXA 5 MG TABS 786332 OLANZAPINE Inactive HYDROCODONE-ACETAMINOPHEN 5-325 MG TABS take one tablet by mouth every four hours as needed for pain HYDROCODONE-ACETAMINOPHEN 5-325 MG TABS 266837 HYDROCODONE-ACETAMINOPHEN Inactive BACTROBAN 2 % CREAM apply to ear and nose twice daily BACTROBAN 2 % CREAM 950009 MUPIROCIN CALCIUM Inactive CYCLOBENZAPRINE HCL 10 MG TABS 1/2 tablet by mouth every 8 hours as needed for muscle spasms CYCLOBENZAPRINE HCL 10 MG TABS 388560 CYCLOBENZAPRINE HCL Inactive NAVANE 10 MG CAPS 1/2 tablet twice a day NAVANE 10 MG CAPS THIOTHIXENE Inactive DOXEPIN HCL 10 MG CAPS Take 1 tablet by mouth daily DOXEPIN HCL 10 MG CAPS 7578895 DOXEPIN HCL Inactive HYDROCODONE-ACETAMINOPHEN 7.5-325 MG TABS 1 four times a day as needed for pain HYDROCODONE-ACETAMINOPHEN 7.5-325 MG TABS 951632 HYDROCODONE-ACETAMINOPHEN Inactive NIACIN CR 500 MG CR-TABS 2 qHS NIACIN CR 500 MG CR- TABS NIACIN Inactive ORPHENADRINE CITRATE ER 100 MG [id number] 1 every 12 hr. as needed ORPHENADRINE CITRATE ER 100 MG [id number]-RCW ORPHENADRINE CITRATE Inactive ACETAMINOPHEN 500 MG TABS 2 Q 6 hr. PRN ACETAMINOPHEN 500 MG TABS 122800 ACETAMINOPHEN Inactive SAPHRIS 5 MG SUBL by mouth twice a day SAPHRIS 5 MG SUBL ASENAPINE MALEATE Inactive NIACIN ER 500 MG CR-TABS 4 qHS (for triglycerides) NIACIN ER 500 MG CR-TABS NIACIN Inactive IBUPROFEN 200 MG TABS 1 Q 6 hr. PRN IBUPROFEN 200 MG TABS 556972 IBUPROFEN Inactive FLUTICASONE PROPIONATE 50 MCG/ACT SUSP 2 sprays each nostril qDay x 30 days FLUTICASONE PROPIONATE 50 MCG/ACT SUSP 587044 FLUTICASONE PROPIONATE Inactive EQL TRUETEST TEST STRP Test blood sugar TID EQL TRUETEST TEST STRP GLUCOSE BLOOD Inactive TERESE CONTOUR TEST STRP monitor blood sugars 3x/day TERESE CONTOUR TEST STRP GLUCOSE BLOOD Inactive DETROL LA 4 MG [id number] Take 1 tablet by mouth daily DETROL LA 4 MG CH98K-MLG TOLTERODINE TARTRATE Inactive ZYPREXA 7.5 MG TABS 1 at HS ZYPREXA 7.5 MG TABS 623385 OLANZAPINE Inactive THIOTHIXENE 5 MG CAPS by mouth twice a day THIOTHIXENE 5 MG CAPS 345049 THIOTHIXENE Inactive UROXATRAL 10 MG HA29Z-GLA Take 1 tablet by mouth daily UROXATRAL 10 MG JL29D-PSG ALFUZOSIN HCL Inactive ACYCLOVIR 400 MG ORAL TABS 1 pill three times daily x 5 days, for cold sore outbreak ACYCLOVIR 400 MG ORAL TABS 955986 ACYCLOVIR Inactive TRUETEST TEST STRP check sugars 4x/day TRUETEST TEST STRP GLUCOSE BLOOD Inactive HUMALOG 100 UNIT/ML SOLN Take 20 units with breakfast, 10u with lunch and suppetr. HUMALOG 100 UNIT/ML SOLN INSULIN LISPRO ( HUMAN) Inactive CYCLOBENZAPRINE HCL 10 MG TABS 1 tablet by mouth three times daily, scheduled CYCLOBENZAPRINE HCL 10 MG TABS 005790 CYCLOBENZAPRINE HCL Inactive ACCU-CHEK ROSA INVITR STRP use strips with device to check blood sugars 3 times daily ACCU-CHEK ROSA INVITR STRP GLUCOSE BLOOD Inactive ACCU-CHEK ROSA UZMA Use device to check blood sugars ACCU-CHEK ROSA UZMA BLOOD GLUCOSE MONITORING SUPPL Inactive CEFDINIR 300 MG CAPS by mouth twice a day CEFDINIR 300 MG CAPS 487936 CEFDINIR Inactive AZITHROMYCIN 500 MG SOLR 1 po q day AZITHROMYCIN 500 MG SOLR 518481 AZITHROMYCIN Inactive AMOXICILLIN 500 MG CAPS 2 po BID x 10 days AMOXICILLIN 500 MG CAPS 702437 AMOXICILLIN Inactive PENICILLIN V POTASSIUM 500 MG TABS 1 pill by mouth three times daily PENICILLIN V POTASSIUM 500 MG TABS 999101 PENICILLIN V POTASSIUM Inactive Immunizations Vaccine Administration [...] Fluvirin, Fluarix, Agriflu(>=18 yo)) Fluzone (>3 yrs.) [[id number]] Influenza, seasonal, injectable pneumococcal immunization administered Pneumovax [...] temperature E&M 97.9 [degF] Body temperature weight E&Brianne - 3141-9 246.8 [lb_av] Weight Measured blood [...] HGBA1C - Chemistry sodium, serum 131 mmol/L 253-451 5119/12/30 potassium, serum 5.0 mmol/L 3.5-5.2 chloride, serum 95 mmol/L 98-107 carbon dioxide, venous blood 26.7 mmol/L 21.0-32.0 blood glucose 112 mg/dL 65-110 calcium, serum 9.2 mg/dL 8.5-10.1 urea nitrogen, blood 12 mg/dL 7-18 creatinine, serum 1.10 mg/dL 0.60-1.30 hemoglobin A1C, blood, as % of total hemoglobin 5.8 % 4.3-6.0 Lab Report: Basic Metabolic Panel, HGBA1C, MICROALBUMIN - Chemistry sodium, serum 137 mmol/L 220-057 5709/05/19 potassium, serum 5.2 mmol/L 3.5-5.2 chloride, serum [...] microalbumin, urine 10 0-19 Lab Report: Chlamydia/GC APTIMA/10446, HIV-1/2 Agn/Dominga/78742, RPR (DX) W ... - Chemistry hepatitis B surface antigen NON-REACTIVE NON-REACTIVE Lab Report: Chlamydia/GC APTIMA/64120, HIV-1/2 Agn/Dominga/89797, RPR (DX) W ... - Lab chlamydia DNA probe NOT DETECTED NOT DETECTED Lab Report: Chlamydia/GC APTIMA/66150, HIV-1/2 Agn/Dominga/69652, RPR (DX) W ... - Microbiology Neisseria gonorrhoeae DNA probe NOT DETECTED NOT DETECTED Lab Report: Chlamydia/GC APTIMA/25429, HIV-1/2 Agn/Dominga/83533, RPR (DX) W ... - Serology rapid plasma reagin antibody titer NON-REACTIVE NON-REACTIVE Lab Report: Comp. Metabolic Panel - Chemistry sodium, serum 127 mmol/L 606-190 9817/10/27 potassium, serum 4.1 mmol/L 3.5-5.2 chloride, serum [...] CBC - Chemistry cholesterol, serum 131 mg/dL 821-689 6450/06/03 triglyceride, serum, fasting 383 mg/dL 30-200 HDL [...] 4.7 mg/dL 2.6-7.2 cholesterol, serum 142 mg/dL 816-454 7159/06/26 triglyceride, serum, fasting 272 mg/dL 30-200 HDL [...] mg/dL Encounters Code Encounter Date Provider Facility CPT-22619 Level 3 Est. Patient 14:46:15 JEANNINE Hickey MD [facility]-18614 Level 3 Est. Patient 09:34:56 CDT Alina Castaneda MD [facility]92567 Level 3 Est. Patient 21:40:19 CDT Mima Erazo ALBAN [facility]-15574 Level 3 Est. Patient 09:26:40 CDT Marvel Charles [facility]71450 Level 3 Est. Patient 12:36:43 CDT Vanessa Hickey MD [facility]69055 Level 3 Est. Patient 12:57:49 CDT Vanessa Hickey MD [facility]52810 Level 3 Est. Patient 00:28:25 CDT Alina Castaneda MD [facility]55209 Level 2 Est. Patient 12:52:14 CDT Alina Castaneda MD [facility]42854 Level 3 Est. Patient 11:51:18 LEATHER STRIPPING MACHINE OPERATOR Alina Castaneda MD [facility]-[address]44 Level 3 Est. Patient 10:09:22 LEATHER STRIPPING MACHINE OPERATOR Alina Castaneda MD [facility]86436 Level 3 Est. Patient 14:36:26 LEATHER STRIPPING MACHINE OPERATOR Marvel Charles [facility]33462 Level 3 Est. Patient 13:34:47 LEATHER STRIPPING MACHINE OPERATOR Alina Castaneda MD [facility]53541 Level 3 Est. Patient 19:52:08 LEATHER STRIPPING MACHINE OPERATOR Alina Castaneda MD [facility]61134 Level 3 Est. Patient 10:01:51 LEATHER STRIPPING MACHINE OPERATOR Marvel Charles [facility]32595 Level 3 Est. Patient 21:54:06 CDT Vanessa Hickey MD [facility]79964 Level 3 Est. Patient 08:54:46 CDT Alina Castaneda MD [facility]-89589 Level 3 Est. Patient 09:32:11 CDT Marvel Gurdeepajayestela [facility] [place]-15314 Level 3 Est. Patient 12:02:49 CDT Alina Castaneda MD [facility]92432 Level 3 Est. Patient 19:17:33 CDT Alina Castaneda MD [facility]71737 Level 3 Est. Patient 13:19:10 CDT Marvel Araceli [facility] [place]-78982 Level 3 Est. Patient 08:20:05 CDT Alina Castaneda MD [facility]-65455 Level 3 Est. Patient 15:17:18 CDT Alina Castaneda MD [facility]-61400 Level 3 Est. Patient 14:25:36 LEATHER STRIPPING MACHINE OPERATOR Marvel Charles [facility]-12407 Level 3 Est. Patient 10:09:15 LEATHER STRIPPING MACHINE OPERATOR Marvel Charles [facility]-02425 Level 3 Est. Patient 21:28:43 CDT Alina Castaneda MD [facility]-44831 Level 3 Est. Patient 15:20:11 CDT Marvel Araceli [facility]-64932 Level 4 Est. Patient 19:08:12 CDT Alina Castnaeda MD [facility]-14075 Level 3 Est. Patient 15:06:39 CDT Brooksjohn Charles [facility]-99096 Level 4 Est. Patient 17:48:15 CDT Alina Castaneda MD [facility]11596 Level 3 Est. Patient 14:53:49 CDT Alina Castaneda MD [facility]-07948 Level 3 Est. Patient 09:35:16 CDT Alina Castaneda MD [facility]-31939 Level 3 Est. Patient 12:23:22 CDT Alina Castaneda MD [facility]19175 Level 3 Est. Patient 16:19:15 CDT Alina Castaneda MD [facility]-28844 Level 3 Est. Patient 21:39:56 LEATHER STRIPPING MACHINE OPERATOR Alina Castaneda MD [facility]-83705 Level 4 Est. Patient 14:12:56 LEATHER STRIPPING MACHINE OPERATOR Alina Castaneda MD [facility]-00862 Level 2 Est. Patient 15:34:57 LEATHER STRIPPING MACHINE OPERATOR Alina Castaneda MD [facility]-37609 Level 3 Est. Patient 12:17:04 LEATHER STRIPPING MACHINE OPERATOR Alina Castaneda MD [facility]-15717 Level 3 Est. Patient 09:18:18 LEATHER STRIPPING MACHINE OPERATOR Marvel Charles [facility] [place]-46085 Level 2 Est. Patient 21:50:24 CDT Alina Castaneda MD [facility]-00775 Level 3 Est. Patient 09:17:28 CDT Marvel Charles [facility]-71573 Level 4 Est. Patient 18:54:02 CDT Alina Castaneda MD [facility]-65652 Level 3 Est. Patient 10:47:10 CDT Alina Castaneda MD [facility]61503 Level 3 Est. Patient 09:22:20 CDT Marvel Charles [facility]-51374 Level 3 Est. Patient 16:39:43 CDT Zainnivia Thurstonestela [facility] CPT-56478 Level 3 Est. Patient 16:05:16 CDT Alina Castaneda MD [facility] CPT-56032 Level 3 Est. Patient 00:29:15 CDT Alina Castaneda MD [facility]-61172 Level 3 Est. Patient 10:49:22 LEATHER STRIPPING MACHINE OPERATOR Marvel Thurstonestela [facility] CPT-02555 Level 3 Est. Patient 21:30:19 LEATHER STRIPPING MACHINE OPERATOR Alina Castaneda MD [facility] CPT-44676 Level 4 Est. Patient 17:04:11 LEATHER STRIPPING MACHINE OPERATOR Brooksnivia Gurdeepajayestela [facility] CPT-08906 Level 3 Est. Patient 15:34:11 LEATHER STRIPPING MACHINE OPERATOR [facility]-27383 Level 2 Est. Patient 12:51:58 LEATHER STRIPPING MACHINE OPERATOR Alina Castaneda MD [facility] CPT-98109 Level 3 Est. Patient 13:20:01 LEATHER STRIPPING MACHINE OPERATOR Alina Castaneda MD [facility] CPT-47108 Level 3 Est. Patient 09:23:35 CDT Alina Castaneda MD [facility] Procedures Code Procedure Name Date Entry Date Standard Description CPT-85166 Bladder Scan 12:36:44 CDT CPT-02128 Bladder Scan 21:54:06 CDT CPT-G0008 Administration of Influenza Virus Vaccine 13:05:26 CDT CPT-19407 Fluzone Quadrivalent Intramuscular Suspension 0.5 ML 13: 05:26 CDT CPT-70601 Administration single or combination vaccine inc oral 11 :49:51 CDT CPT-86634 Pneumovax 11:49:51 CDT CPT-63434 Ribs unilateral 2V 12:37:22 LEATHER STRIPPING MACHINE OPERATOR CPT-52245 Chest 2V Frontal and Lat 17:15:26 CDT CPT-91720 Abx/Therapy Injection 18:54:02 CDT CPT-J0696 Rocephin 1000 mg (Ceftriaxone) 16:00:32 CDT CPT-44056 Chest 2V Frontal and Lat 15:26:45 CDT CPT-75600 Chest 2V Frontal and Lat 10:23:27 CDT CPT-57684 Venipuncture Draw Fee 10:11:00 CDT CPT-35116 Administration single or combination vaccine inc oral 11 :56:38 CDT CPT-72267 Influenza split virus > age 3 11:56:38 CDT CPT-74271 Venipuncture Draw Fee 08:49:54 LEATHER STRIPPING MACHINE OPERATOR CPT-60654 EKG Trac and Interp 17:54:19 LEATHER STRIPPING MACHINE OPERATOR
--- OUTSIDE RECORDS SUMMARY | 2018-07-02 17:07 | XMS REPORT | Clinical Summary ---
Author Author Admin, TERELL Organization [facility] [employer] Address Unknown Phone Unavailable Allergies, Adverse Reactions, [...] positional vertigo 386.11 Active Mima Erazo MANAGER POOL Benign paroxysmal positional vertigo Vertigo, benign paroxysmal position 386.11 Inactive Mima Erazo MANAGER POOL Benign paroxysmal positional vertigo High-risk sexual behavior V69.2 Active Alina Castaneda MD PhD High-risk sexual behavior Erectile dysfunction 302.72 Active Alina Castaneda MD PhD Psychosexual dysfunction with inhibited sexual excitement Constipation 564.00 Active Alina Castaneda MD PhD Constipation, unspecified Skin lesion 709.9 Active Alina Castaneda MD PhD Unspecified disorder of skin and subcutaneous tissue Malaise and fatigue 780.79 Active Cherelle Speaks MANAGER POOL Other malaise and fatigue Diarrhea 787.91 Active Cherelle Speaks MANAGER POOL Diarrhea PHARYNGITIS 462 Active Cherelle Speaks MANAGER POOL Acute pharyngitis Colitis 558.9 Active Mima Erazo MANAGER POOL Other and unspecified noninfectious gastroenteritis and colitis [...] Patient Instruction EFFEXOR XR 37.5 MG ORAL [id number] Take one by mouth daily VENLAFAXINE HCL 38187795235 Active Mima Vadimum ALBAN Active TRAVATAN Z 0.004 % OPHTH SOLN 1 drop each eye daily TRAVOPROST 33061301437 Active Mima Yokum MANAGER POOL Active FLUVOXAMINE MALEATE 50 MG ORAL TABS 1 tab by mouth daily FLUVOXAMINE MALEATE 84284623493 No Longer Active Mima Vadimum ALBAN Active MORPHINE SULFATE ER 30 MG ORAL CR-TABS Take one capsule BID MORPHINE SULFATE 86123923111 Active Mima Yokum MANAGER POOL Active TRUEPLUS LANCETS 30G MISC 3x a day LANCETS 95581508885 Active Marvel Charles FIRE EXTINGUISHER TECHNICIAN Active TRUE METRIX METER W/DEVICE KIT Check blood sugars 3x/day BLOOD GLUCOSE MONITORING SUPPL 73785175923 Active Marvel Mackenzieglari FIRE EXTINGUISHER TECHNICIAN Active TRUE METRIX BLOOD GLUCOSE TEST INVITR STRP Check blood sugars 3x/day. GLUCOSE BLOOD 38023349962 Active Marvel Mackenzieglari FIRE EXTINGUISHER TECHNICIAN Active VITAMIN D 2000 UNIT ORAL CAPS Take one by mouth daily CHOLECALCIFEROL 14956669947 Active Mima Yokum MANAGER POOL Active LATUDA 60 MG ORAL TABS Take one by mouth daily LURASIDONE HCL 63624020112 No Longer Active Mima Yokum MANAGER POOL Active HUMALOG KWIKPEN 100 UNIT/ML SC SOPN sliding scale if needed INSULIN LISPRO (HUMAN) 85214216967 Active Mima Yokum MANAGER POOL Active TRAZODONE HCL 100 MG TABS 1 every night to prevent headaches TRAZODONE HCL 17925038628 Active Gabrielle Madl CAPTAIN AIRLINE PILOT Active LATUDA 60 MG ORAL TABS 1 tab daily LURASIDONE HCL 15174506508 Active Gabrielle Madl CAPTAIN AIRLINE PILOT Active CLONAZEPAM 1 MG TABS 1 pill by mouth three times daily CLONAZEPAM 13559997521 Active Gabrielle Madl CAPTAIN AIRLINE PILOT Active [facility] MILK OF MAGNESIA 400 MG/5ML ORAL SUSP 30ml by mouth bid prn MAGNESIUM HYDROXIDE 60239856965 Active Mason Loredo MD Active TYLENOL 8 HOUR 650 MG ORAL CR-TABS 1 tab QID prn ACETAMINOPHEN 96373811520 Active Mason Loredo MD Active MYLANTA GAS RELIEF MAXIMUM STR 125 MG ORAL CAPS 30cc every 4 hours prn 12/01 SIMETHICONE 44859657220 Active Mason Loredo MD Active IMODIUM A-D 2 MG ORAL TABS 1 tab QID as needed LOPERAMIDE HCL 24736052224 Active Mason Loredo MD Active TRAVATAN Z 0.004 % SOLN 1 gtt each eye daily TRAVOPROST 23120938907 No Longer Active Mason Loredo MD Active LISINOPRIL 20 MG TABS 1 BID LISINOPRIL 84150460630 No Longer Active Mason Loredo MD Active LEVEMIR FLEXTOUCH 100 UNIT/ML SC SOPN 60 units SQ each evening, for diabetes INSULIN DETEMIR 41226102122 Active Mima Erazo APRN Active ZOLPIDEM TARTRATE 10 MG TABS take at bedtime ZOLPIDEM TARTRATE 94943272733 No Longer Active Mason Loredo MD Active HYDROCODONE-ACETAMINOPHEN 5-325 MG TABS 2 tabs by mouth three times daily for pain HYDROCODONE-ACETAMINOPHEN 48508012105 No Longer Active Mason Loredo MD Active ZOFRAN 4 MG TABS 1 po q4hr PRN Nausea ONDANSETRON HCL 38223183932 No Longer Active Mason Loredo MD Active LOMOTIL 2.5-0.025 MG ORAL TABS take 1-2 tabs PO after each stool, no more than 8 in 24 hours DIPHENOXYLATE-ATROPINE 41004853822 No Longer Active Mason Loredo MD Active COLACE 100 MG CAPS 1 pill by mouth twice daily, for constipation DOCUSATE SODIUM 12253427416 No Longer Active Mima Erazo APRN Active FLONASE ALLERGY RELIEF 50 MCG/ACT NASAL SUSP One spray each nostril BID x 1 week then daily FLUTICASONE PROPIONATE 26970922480 Active Mima Erazo APRN Active BD PEN NEEDLE MINI U/F 31G X 5 MM MISC 4 a day INSULIN PEN NEEDLE 92672515159 Active Marvel MARROQUIN Active AMITIZA 24 MCG ORAL CAPS Take one capsule BID for constipation LUBIPROSTONE 63409067612 Active Mima Erazo APRN Active TRUEPLUS LANCETS 30G MISC 3 a day LANCETS 38210758606 Active Marvel MARROQUIN Active TOLTERODINE TARTRATE 2 MG TABS 1 pill twice daily, for bladder TOLTERODINE TARTRATE 65092096621 No Longer Active Vanessa Hickey MD Active AMITIZA 24 MCG ORAL CAPS Take one capsule BID for constipation. LUBIPROSTONE 27985978436 No Longer Active Vanessa Hickey MD Active FLUVOXAMINE MALEATE 100 MG ORAL TABS take one tab every AM et HS, and take 1/ 2 tab at noon FLUVOXAMINE MALEATE 61691996379 Active Grace Azam RMA Active METOPROLOL SUCCINATE 100 MG [id number] 1 by mouth daily for blood pressure METOPROLOL SUCCINATE 34331774767 No Longer Active Grace Azam RMA Active METFORMIN HCL ER 500 MG [id number] Take three tablets by mouth everyday METFORMIN HCL 50953595644 No Longer Active Grace Azam RMA Active LOVAZA 1 GM CAPS 4 daily (for triglycerides) OMEGA-3- ACID ETHYL ESTERS 13264359888 No Longer Active Grace Azam RMA Active TRAZODONE HCL 100 MG ORAL TABS 1 tab by mouth for sleep TRAZODONE HCL 69066784763 No Longer Active Grace Azam RMA Active NOVOFINE 32G X 6 MM MISC use one four times per day INSULIN PEN NEEDLE 70164351776 No Longer Active Grace Azam RMA Active BACTROBAN 2 % CREAM Apply to affected area BID for up to 10 days MUPIROCIN CALCIUM 45190396370 No Longer Active Grace Azam RMA Active KEFLEX 500 MG CAP 1 po BID x 7 days CEPHALEXIN 14197843056 No Longer Active Cherelle Avila APRN Active FLUVOXAMINE MALEATE 100 MG TABS Take one (1) tablet by mouth am, 1/2 at noon FLUVOXAMINE MALEATE 70387119576 No Longer Active Mimacecily Erazo MANAGER POOL Active CORICIDIN HBP CONGESTION/COUGH 10-200 MG ORAL CAPS Take as directed on box as needed for cold/flu symptoms DEXTROMETHORPHAN-GUAIFENESIN 50056970414 Active Cherelle Speaks MANAGER POOL Active OMEGA-3 300 MG ORAL CAPS 4 caps by mouth daily OMEGA-3 FATTY ACIDS 46185661548 Active Mima Yokum MANAGER POOL Active FLUVOXAMINE MALEATE 100 MG ORAL TABS Take 1/2 tab at noon FLUVOXAMINE MALEATE 32647424817 No Longer Active Cherelle Avila ALBAN Active [facility] LUBRICANT EYE DROPS 0.4-0.3 % OPHTH SOLN POLYETHYL GLYCOL-PROPYL GLYCOL 96262474791 Active Mima Erazo MANAGER POOL Active MIRALAX POWD 17g by mouth daily, for constipation POLYETHYLENE GLYCOL 3350 09396233213 Active Alina Castaneda MD PhD Active TRUETEST TEST STRP check blood sugars 3x/day GLUCOSE BLOOD 84512685378 Active Maliheh Ziglari FIRE EXTINGUISHER TECHNICIAN Active ACCU-CHEK ROSA UZMA Use device to check blood sugars BLOOD GLUCOSE MONITORING SUPPL 07245802416 No Longer Active Maliheh Ziglari FIRE EXTINGUISHER TECHNICIAN Active ACCU-CHEK ROSA INVITR STRP use strips with device to check blood sugars 3 times daily GLUCOSE BLOOD 16456392405 No Longer Active MalGamestaqeh Ziglari FIRE EXTINGUISHER TECHNICIAN Active VERAPAMIL HCL ER 180 MG ORAL CR-TABS 1 pill by mouth twice daily, for migraine prevention VERAPAMIL HCL 00178230809 Active Mima Erazo APRN Active CYCLOBENZAPRINE HCL 10 MG TABS 1 tablet by mouth three times daily, scheduled CYCLOBENZAPRINE HCL 91334556071 No Longer Active Alina Castaneda MD PhD Active HUMALOG 100 UNIT/ML SOLN Take 20 units with breakfast, 10u with lunch and suppetr. INSULIN LISPRO (HUMAN) 80268404553 No Longer Active Alina Castaneda MD PhD Active TRUETEST TEST STRP check sugars 4x/day GLUCOSE BLOOD 38720006373 No Longer Active Alina Castaneda MD PhD Active MORPHINE SULFATE 30 MG TABS 1 pill by mouth twice daily, for pain MORPHINE SULFATE 60583440474 No Longer Active Mason Loredo MD Active ACYCLOVIR 400 MG ORAL TABS 1 pill three times daily x 5 days, for cold sore outbreak ACYCLOVIR 61480679954 No Longer Active Alina Castaneda MD PhD Active PENICILLIN V POTASSIUM 500 MG TABS 1 pill by mouth three times daily PENICILLIN V POTASSIUM 86912629264 No Longer Active Alina Castaneda MD PhD Active UROXATRAL 10 MG [id number] Take 1 tablet by mouth daily ALFUZOSIN HCL 00353016090 No Longer Active Alina Castaneda MD PhD Active THIOTHIXENE 5 MG CAPS by mouth twice a day THIOTHIXENE 10988664939 No Longer Active Alina Castaneda MD PhD Active ZYPREXA 7.5 MG TABS 1 at HS OLANZAPINE 43807722538 No Longer Active Alina Castaneda MD PhD Active BD INSULIN SYRINGE 28G X 1/2" 1 ML MISC 1 four times per day INSULIN SYRINGE-NEEDLE U-100 36653825423 Active Marvel Charles FIRE EXTINGUISHER TECHNICIAN Active DETROL LA 4 MG [id number] Take 1 tablet by mouth daily TOLTERODINE TARTRATE 35944444719 No Longer Active Alina Castaneda MD PhD Active TERESE CONTOUR TEST STRP monitor blood sugars 3x/day GLUCOSE BLOOD 99342065103 No Longer Active Alina Castaneda MD PhD Active EQL TRUETEST TEST STRP Test blood sugar TID GLUCOSE BLOOD 41289670598 No Longer Active Alina Castaneda MD PhD Active FLUTICASONE PROPIONATE 50 MCG/ACT SUSP 2 sprays each nostril qDay x 30 days FLUTICASONE PROPIONATE 25894919419 No Longer Active Alina Castaneda MD PhD Active IBUPROFEN 200 MG TABS 1 Q 6 hr. PRN IBUPROFEN 34965656441 No Longer Active Alina Castaneda MD PhD Active NIACIN ER 500 MG CR-TABS 4 qHS (for triglycerides) NIACIN 02484732638 No Longer Active Alina Castaneda MD PhD Active ALFUZOSIN HCL ER 10 MG [id number] 1 tablet daily ALFUZOSIN HCL 17441367372 Active Mima Erazo MANAGER POOL Active SAPHRIS 5 MG SUBL by mouth twice a day ASENAPINE MALEATE 80696805172 No Longer Active Marvel Mackenzieglari FIRE EXTINGUISHER TECHNICIAN Active ACETAMINOPHEN 500 MG TABS 2 Q 6 hr. PRN ACETAMINOPHEN 27110454924 No Longer Active Maliheh Ziglari FIRE EXTINGUISHER TECHNICIAN Active ORPHENADRINE CITRATE ER 100 MG [id number] 1 every 12 hr. as needed ORPHENADRINE CITRATE 86697266830 No Longer Active Alina Castaneda MD PhD Active NIACIN CR 500 MG CR-TABS 2 qHS NIACIN 58564076237 No Longer Active Alina Castaneda MD PhD Active AMOXICILLIN 500 MG CAPS 2 po BID x 10 days AMOXICILLIN 46468609411 No Longer Active Alina Castaneda MD PhD Active HYDROCODONE-ACETAMINOPHEN 7.5-325 MG TABS 1 four times a day as needed for pain HYDROCODONE-ACETAMINOPHEN 84545058023 No Longer Active Alina Castaneda MD PhD Active DOXEPIN HCL 10 MG CAPS Take 1 tablet by mouth daily DOXEPIN HCL 85559914143 No Longer Active Salina Han [facility] Active NAVANE 10 MG CAPS 1/2 tablet twice a day THIOTHIXENE No Longer Active Salina Han [facility] Active CYCLOBENZAPRINE HCL 10 MG TABS 1/2 tablet by mouth every 8 hours as needed for muscle spasms CYCLOBENZAPRINE HCL 83245827769 No Longer Active Alina Castaneda MD PhD Active BACTROBAN 2 % CREAM apply to ear and nose twice daily MUPIROCIN CALCIUM 72909784009 No Longer Active Alina Castaneda MD PhD Active HYDROCODONE-ACETAMINOPHEN 5-325 MG TABS take one tablet by mouth every four hours as needed for pain HYDROCODONE-ACETAMINOPHEN 48516123369 No Longer Active Alina Castaneda MD PhD Active ZYPREXA 5 MG TABS take one tablet by mouth every evening OLANZAPINE 25756326635 No Longer Active Alina Castaneda MD PhD Active ALBUTEROL SULFATE 0.083 % NEBU SOLN one vial per nebulizer TID and PRN cough/ soa ALBUTEROL SULFATE 22843668857 No Longer Active Alina Castaneda MD PhD Active GUAIFENESIN 600 MG [id number] 1 tablet by mouth twice daily if needed for cough GUAIFENESIN 48253301654 No Longer Active Marvel MARROQUIN Active AZITHROMYCIN 500 MG SOLR 1 po q day AZITHROMYCIN 21099051765 No Longer Active Alina Castaneda MD PhD Active PROMETHAZINE-CODEINE 6.25-10 MG/5ML SYRP 1 tsp po q 6 hours prn cough PROMETHAZINE-CODEINE 11243253711 No Longer Active Alina Castaneda MD PhD Active CEFDINIR 300 MG CAPS by mouth twice a day CEFDINIR 45273209389 No Longer Active Alina Castaneda MD PhD Active METFORMIN HCL 500 MG [id number] Take 3 tablets by mouth everyday METFORMIN HCL 56387731054 No Longer Active Alina Castaneda MD PhD Active LEVEMIR 100 UNIT/ML SOLN 90 units SQ qHS INSULIN DETEMIR 70585459148 No Longer Active Marvel MARROQUIN Active TOPROL XL 100 MG [id number] 1 @ HS METOPROLOL SUCCINATE 20973714931 No Longer Active Marvel MARROQUIN Active ALLOPURINOL 300 MG TABS Take one by mouth daily ALLOPURINOL 52998983634 Active Mima Yoeloinaum MANAGER POOL Active ZYPREXA 10 MG TABS Take one by mouth daily OLANZAPINE 95623247680 No Longer Active Alina Castaneda MD PhD Active NOVOLOG 100 UNIT/ML SOLN 40 units with every meal INSULIN ASPART 71486572757 No Longer Active Alina Castaneda MD PhD Active VERAPAMIL HCL CR 120 MG TAB CR 1 qPM VERAPAMIL HCL 77225912029 No Longer Active Salnia Han RMA Active ZYPREXA 15 MG TABS Take 1 tablet by mouth daily OLANZAPINE 75219334794 No Longer Active Marvel MENDOZAP Active ALBUTEROL SULFATE (2.5 MG/3ML) 0.083% NEBU 1 neb tid and prn cough ALBUTEROL SULFATE 48478421211 No Longer Active Alina Castaneda MD PhD Active LANTUS 100 UNIT/ML SOLN 60 units sq q hs INSULIN GLARGINE 01186963174 No Longer Active CRYSTAL Suarez Active ALBUTEROL SULFATE (2.5 MG/3ML) 0.083% NEBU 1 neb tid and prn cough ALBUTEROL SULFATE (2.5 MG/3ML) 0.083% NEBU 772246 ALBUTEROL SULFATE Inactive ZYPREXA 15 MG TABS Take 1 tablet by mouth daily ZYPREXA 15 MG TABS 544418 OLANZAPINE Inactive VERAPAMIL HCL CR 120 MG TAB CR 1 qPM VERAPAMIL HCL CR 120 MG TAB CR VERAPAMIL HCL Inactive ZYPREXA 10 MG TABS Take one by mouth daily ZYPREXA 10 MG TABS 467421 OLANZAPINE Inactive TOPROL XL 100 MG [id number] 1 @ HS TOPROL XL 100 MG [id number]-[id number] METOPROLOL SUCCINATE Inactive LEVEMIR 100 UNIT/ML SOLN 90 units SQ qHS LEVEMIR 100 UNIT/ML SOLN INSULIN DETEMIR Inactive PROMETHAZINE-CODEINE 6.25-10 MG/5ML SYRP 1 tsp po q 6 hours prn cough PROMETHAZINE-CODEINE 6.25-10 MG/5ML SYRP 339393 PROMETHAZINE- CODEINE Inactive GUAIFENESIN 600 MG [id number]-UVN 1 tablet by mouth twice daily if needed for cough GUAIFENESIN 600 MG [id number]-OOI GUAIFENESIN Inactive ALBUTEROL SULFATE 0.083 % NEBU SOLN one vial per nebulizer TID and PRN cough/ soa ALBUTEROL SULFATE 0.083 % NEBU SOLN 842840 ALBUTEROL SULFATE Inactive ZYPREXA 5 MG TABS take one tablet by mouth every evening ZYPREXA 5 MG TABS 748366 OLANZAPINE Inactive HYDROCODONE-ACETAMINOPHEN 5-325 MG TABS take one tablet by mouth every four hours as needed for pain HYDROCODONE-ACETAMINOPHEN 5-325 MG TABS 781102 HYDROCODONE-ACETAMINOPHEN Inactive BACTROBAN 2 % CREAM apply to ear and nose twice daily BACTROBAN 2 % CREAM 922067 MUPIROCIN CALCIUM Inactive CYCLOBENZAPRINE HCL 10 MG TABS 1/2 tablet by mouth every 8 hours as needed for muscle spasms CYCLOBENZAPRINE HCL 10 MG TABS 845087 CYCLOBENZAPRINE HCL Inactive NAVANE 10 MG CAPS 1/2 tablet twice a day NAVANE 10 MG CAPS THIOTHIXENE Inactive DOXEPIN HCL 10 MG CAPS Take 1 tablet by mouth daily DOXEPIN HCL 10 MG CAPS 7190520 DOXEPIN HCL Inactive HYDROCODONE-ACETAMINOPHEN 7.5-325 MG TABS 1 four times a day as needed for pain HYDROCODONE-ACETAMINOPHEN 7.5-325 MG TABS 988978 HYDROCODONE-ACETAMINOPHEN Inactive NIACIN CR 500 MG CR-TABS 2 qHS NIACIN CR 500 MG CR- TABS NIACIN Inactive ORPHENADRINE CITRATE ER 100 MG [id number] 1 every 12 hr. as needed ORPHENADRINE CITRATE ER 100 MG UL66Y-XBA ORPHENADRINE CITRATE Inactive ACETAMINOPHEN 500 MG TABS 2 Q 6 hr. PRN ACETAMINOPHEN 500 MG TABS 217690 ACETAMINOPHEN Inactive SAPHRIS 5 MG SUBL by mouth twice a day SAPHRIS 5 MG SUBL ASENAPINE MALEATE Inactive NIACIN ER 500 MG CR-TABS 4 qHS (for triglycerides) NIACIN ER 500 MG CR-TABS NIACIN Inactive IBUPROFEN 200 MG TABS 1 Q 6 hr. PRN IBUPROFEN 200 MG TABS 692184 IBUPROFEN Inactive FLUTICASONE PROPIONATE 50 MCG/ACT SUSP 2 sprays each nostril qDay x 30 days FLUTICASONE PROPIONATE 50 MCG/ACT SUSP 9965022 FLUTICASONE PROPIONATE Inactive EQL TRUETEST TEST STRP Test blood sugar TID EQL TRUETEST TEST STRP GLUCOSE BLOOD Inactive TERESE CONTOUR TEST STRP monitor blood sugars 3x/day TERESE CONTOUR TEST STRP GLUCOSE BLOOD Inactive DETROL LA 4 MG [id number] Take 1 tablet by mouth daily DETROL LA 4 MG [id number] TOLTERODINE TARTRATE Inactive ZYPREXA 7.5 MG TABS 1 at HS ZYPREXA 7.5 MG TABS 352054 OLANZAPINE Inactive THIOTHIXENE 5 MG CAPS by mouth twice a day THIOTHIXENE 5 MG CAPS 061325 THIOTHIXENE Inactive UROXATRAL 10 MG CO72X-LYV Take 1 tablet by mouth daily UROXATRAL 10 MG [id number]-JHU ALFUZOSIN HCL Inactive ACYCLOVIR 400 MG ORAL TABS 1 pill three times daily x 5 days, for cold sore outbreak ACYCLOVIR 400 MG ORAL TABS 443641 ACYCLOVIR Inactive TRUETEST TEST STRP check sugars 4x/day TRUETEST TEST STRP GLUCOSE BLOOD Inactive HUMALOG 100 UNIT/ML SOLN Take 20 units with breakfast, 10u with lunch and suppetr. HUMALOG 100 UNIT/ML SOLN INSULIN LISPRO ( HUMAN) Inactive CYCLOBENZAPRINE HCL 10 MG TABS 1 tablet by mouth three times daily, scheduled CYCLOBENZAPRINE HCL 10 MG TABS 124200 CYCLOBENZAPRINE HCL Inactive ACCU-CHEK ROSA INVITR STRP use strips with device to check blood sugars 3 times daily ACCU-CHEK ROSA INVITR STRP GLUCOSE BLOOD Inactive ACCU-CHEK ROSA UZMA Use device to check blood sugars ACCU-CHEK ROSA UZMA BLOOD GLUCOSE MONITORING SUPPL Inactive FLUVOXAMINE MALEATE 100 MG ORAL TABS Take 1/2 tab at noon FLUVOXAMINE MALEATE 100 MG ORAL TABS 555544 FLUVOXAMINE MALEATE Inactive FLUVOXAMINE MALEATE 100 MG TABS Take one (1) tablet by mouth am, 1/2 at noon FLUVOXAMINE MALEATE 100 MG TABS 903104 FLUVOXAMINE MALEATE Inactive BACTROBAN 2 % CREAM Apply to affected area BID for up to 10 days BACTROBAN 2 % CREAM 895429 MUPIROCIN CALCIUM Inactive NOVOFINE 32G X 6 MM MISC use one four times per day NOVOFINE 32G X 6 MM MISC INSULIN PEN NEEDLE Inactive TRAZODONE HCL 100 MG ORAL TABS 1 tab by mouth for sleep TRAZODONE HCL 100 MG ORAL TABS 867055 TRAZODONE HCL Inactive LOVAZA 1 GM CAPS 4 daily (for triglycerides) LOVAZA 1 GM CAPS 969923 RNMJB-[id number] ETHYL ESTERS Inactive METFORMIN HCL ER 500 MG [id number] Take three tablets by mouth everyday METFORMIN HCL ER 500 MG ZZ12B-QQP METFORMIN HCL Inactive METOPROLOL SUCCINATE 100 MG [id number]-ZHN 1 by mouth daily for blood pressure METOPROLOL SUCCINATE 100 MG SL32X-TOW METOPROLOL SUCCINATE Inactive AMITIZA 24 MCG ORAL CAPS Take one capsule BID for constipation. AMITIZA 24 MCG ORAL CAPS LUBIPROSTONE Inactive TOLTERODINE TARTRATE 2 MG TABS 1 pill twice daily, for bladder TOLTERODINE TARTRATE 2 MG TABS 885580 TOLTERODINE TARTRATE Inactive COLACE 100 MG CAPS 1 pill by mouth twice daily, for constipation COLACE 100 MG CAPS 8891729 DOCUSATE SODIUM Inactive LOMOTIL 2.5-0.025 MG ORAL TABS take 1-2 tabs PO after each stool, no more than 8 in 24 hours LOMOTIL 2.5-0.025 MG ORAL TABS 0017027 DIPHENOXYLATE-ATROPINE Inactive ZOFRAN 4 MG TABS 1 po q4hr PRN Nausea ZOFRAN 4 MG TABS 445314 ONDANSETRON HCL Inactive HYDROCODONE-ACETAMINOPHEN 5-325 MG TABS 2 tabs by mouth three times daily for pain HYDROCODONE-ACETAMINOPHEN 5-325 MG TABS 161280 HYDROCODONE-ACETAMINOPHEN Inactive ZOLPIDEM TARTRATE 10 MG TABS take at bedtime ZOLPIDEM TARTRATE 10 MG TABS 302584 ZOLPIDEM TARTRATE Inactive LISINOPRIL 20 MG TABS 1 BID LISINOPRIL 20 MG TABS 871704 LISINOPRIL Inactive TRAVATAN Z 0.004 % SOLN 1 gtt each eye daily TRAVATAN Z 0.004 % SOLN TRAVOPROST Inactive LATUDA 60 MG ORAL TABS Take one by mouth daily LATUDA 60 MG ORAL TABS LURASIDONE HCL Inactive FLUVOXAMINE MALEATE 50 MG ORAL TABS 1 tab by mouth daily FLUVOXAMINE MALEATE 50 MG ORAL TABS 673524 FLUVOXAMINE MALEATE Inactive CEFDINIR 300 MG CAPS by mouth twice a day CEFDINIR 300 MG CAPS 376913 CEFDINIR Inactive AZITHROMYCIN 500 MG SOLR 1 po q day AZITHROMYCIN 500 MG SOLR 39342653683 AZITHROMYCIN Inactive AMOXICILLIN 500 MG CAPS 2 po BID x 10 days AMOXICILLIN 500 MG CAPS 626844 AMOXICILLIN Inactive PENICILLIN V POTASSIUM 500 MG TABS 1 pill by mouth three times daily PENICILLIN V POTASSIUM 500 MG TABS 400481 PENICILLIN V POTASSIUM Inactive KEFLEX 500 MG CAP 1 po BID x 7 days KEFLEX 500 MG CAP 815269 CEPHALEXIN Inactive Immunizations Vaccine Administration Date Value [...] Fluvirin, Fluarix, Agriflu(>=18 yo)) Fluzone (>3 yrs.) [[id number]] Influenza, seasonal, injectable pneumococcal immunization administered Pneumovax [...] HGBA1C - Chemistry sodium, serum 140 mmol/L 290-811 9454/11/09 potassium, serum 4.0 mmol/L 3.5-5.2 chloride, serum [...] Acid - Chemistry cholesterol, serum 187 mg/dL 021-048 4865/06/14 triglyceride, serum, fasting 246 mg/dL 30-200 HDL [...] negative Encounters Code Encounter Date Provider Facility CPT-73590 Level 3 Est. Patient 09:12:14 [employer] Mima Erazo [facility] CPT-47182 Level 3 Est. Patient 16:52:51 CDT Vanessa Hickey MD [facility] CPT-65456 Level 3 Est. Patient 17:40:16 CDT Mima Erazo [facility] CPT-33871 Level 3 Est. Patient 14:34:52 CDT Vanessa Hickey MD [facility] CPT-28689 Level 3 Est. Patient 16:27:51 CDT Mima Erazo [facility] CPT-04360 Level 3 Est. Patient 14:39:00 [employer]SEM[employer]ER Vanessa Hickey MD [facility] CPT-03307 Level 2 Est. Patient 18:43:34 CDT Mima Erazo [facility] CPT-30600 Level 3 Est. Patient 16:22:09 CDT Cherelle Avila [facility] CPT-74566 Level 4 Est. Patient 17:55:14 CDT Mima Erazo [facility] CPT-39888 Level 2 Est. Patient 17:13:21 CDT Alina Castaneda MD [facility]-97401 Level 3 Est. Patient 14:46:15 CDT Vanessa Hickey MD [facility]-10632 Level 3 Est. Patient 09:34:56 CDT Alina Castaneda MD [facility]-03718 Level 3 Est. Patient 21:40:19 CDT Mima Erazo [facility] CPT-62744 Level 3 Est. Patient 09:26:40 CDT Marvel Charles [facility]-13803 Level 3 Est. Patient 12:36:43 CDT Vanessa Hickey MD [facility]-85757 Level 3 Est. Patient 12:57:49 CDT Vanessa Hickey MD [facility]-40379 Level 3 Est. Patient 00:28:25 CDT Alina Castaneda MD [facility]-12796 Level 2 Est. Patient 12:52:14 CDT Alina Castaneda MD [facility]-09631 Level 3 Est. Patient 11:51:18 [employer] Alina Castaneda MD [facility]-92901 Level 3 Est. Patient 10:09:22 [employer]ER Alina Castaneda MD [facility]-74055 Level 3 Est. Patient 14:36:26 [employer] Marvel Charles FIRE EXTINGUISHER [facility] Level 3 Est. Patient 13:34:47 [employer]ER lAina Castaneda MD [facility]-14898 Level 3 Est. Patient 19:52:08 [employer] Alina Castaneda MD [facility]86607 Level 3 Est. Patient 10:01:51 [employer] Marvel Araceli [facility]-08447 Level 3 Est. Patient 21:54:06 CDT Vanessa Hickey MD [facility]-76052 Level 3 Est. Patient 08:54:46 CDT Alina Castaneda MD [facility]52555 Level 3 Est. [facility] 09:32:11 [facility]-88113 Level 3 Est. Patient 12:02:49 CDT Alina Castaneda MD [facility]-22718 Level 3 Est. Patient 19:17:33 CDT Alina Castaneda MD [facility]74558 Level 3 Est. Patient 13:19:10 CDT Marvel Charles [facility]-19159 Level 3 Est. Patient 08:20:05 CDT Alina Castaneda MD [facility]-77832 Level 3 Est. Patient 15:17:18 CDT Alina Castaneda MD [facility]-30630 Level 3 Est. Patient 14:25:36 [employer] Marvel Charles [facility]02616 Level 3 Est. Patient 10:09:15 [employer] Marvel Charles [facility]-43849 Level 3 Est. Patient 21:28:43 CDT Alina Castaneda MD [facility]46051 Level 3 Est. Patient 15:20:11 CDT Marvel Charles [facility] CPT-79045 Level 4 Est. Patient 19:08:12 CDT Alina Castaneda MD [facility]-14273 Level 3 Est. Patient 15:06:39 CDT Mavrel Charles [facility] CPT-70193 Level 4 Est. Patient 17:48:15 CDT Alina Castaneda MD [facility] CPT-38876 Level 3 Est. Patient 14:53:49 CDT Alina Castaneda MD [facility]-85096 Level 3 Est. Patient 09:35:16 CDT Alina Castaneda MD [facility]-35459 Level 3 Est. Patient 12:23:22 CDT Alina Castaneda MD [facility] CPT-02954 Level 3 Est. Patient 16:19:15 CDT Alina Castaneda MD [facility] CPT-76917 Level 3 Est. Patient 21:39:56 [employer] Alina Castaneda MD [facility] CPT-95990 Level 4 Est. Patient 14:12:56 [employer] Alina Castaneda MD [facility] CPT-97861 Level 2 Est. Patient 15:34:57 [employer] Alina Castaneda MD [facility] CPT-56161 Level 3 Est. Patient 12:17:04 [employer] Alina Castaneda MD [facility]-35479 Level 3 Est. Patient 09:18:18 [employer] Marvel Charles [facility] CPT-37337 Level 2 Est. Patient 21:50:24 CDT Alina Castaneda MD [facility]-44609 Level 3 Est. Patient 09:17:28 CDT Brooksjohn Charles [facility]-29105 Level 4 Est. Patient 18:54:02 CDT Alina Castaneda MD [facility]-72157 Level 3 Est. Patient 10:47:10 CDT Alina Castaneda MD [facility]83555 Level 3 Est. Patient 09:22:20 CDT Marvel Araceli [facility]-30490 Level 3 Est. Patient 16:39:43 CDT Marvel Araceli [facility]-80879 Level 3 Est. Patient 16:05:16 CDT Alina Castaneda MD [facility]-17276 Level 3 Est. Patient 00:29:15 CDT Alina Castaneda MD [facility]98401 Level 3 Est. Patient 10:49:22 [employer] Brooksjohn Charles [facility]-62227 Level 3 Est. Patient 21:30:19 [employer] Alina Castaneda MD [facility]-59977 Level 4 Est. Patient 17:04:11 [employer] Brooksjohn Charles [facility]-48415 Level 3 Est. Patient 15:34:11 [employer] Brookslashondanivia Araceli [facility]-85556 Level 2 Est. Patient 12:51:58 [employer] Alina Castaneda MD [facility]-09718 Level 3 Est. Patient 13:20:01 [employer] Alina Castaneda MD [facility]-37219 Level 3 Est. Patient 09:23:35 CDT Alina Castaneda MD PhD [facility] Procedures Code Procedure Name Date Entry Date Standard Description CPT-03358 HGBA1C - LAB USE ONLY 09:30:27 [employer] CPT-32161 BMP - LAB USE ONLY 09:30:27 [employer] CPT-19099 Venipuncture Draw Fee 09:30:26 [employer] CPT-TCMM Transitional Care Mgmt-Moderate 10:25:31 CDT CPT-23971 Bladder Scan 14:34:53 CDT CPT-64515 Bladder Scan 14:39:01 [employer] CPT-TCMM Transitional Care Mgmt-Moderate 10:30:19 [employer] CPT-22642 Bladder Scan 12:36:44 CDT CPT-40751 Bladder Scan 21:54:06 CDT CPT-G0008 Administration of Influenza Virus Vaccine 13:05:26 CDT CPT-28553 Fluzone Quadrivalent Intramuscular Suspension 0.5 ML 13: 05:26 CDT CPT-62820 Administration single or combination vaccine inc oral 11 :49:51 CDT CPT-03711 Pneumovax 11:49:51 CDT CPT-40465 Ribs unilateral 2V 12:37:22 [employer] CPT-20980 Chest 2V Frontal and Lat 17:15:26 CDT CPT-67184 Abx/Therapy Injection 18:54:02 CDT CPT-J0696 Rocephin 1000 mg (Ceftriaxone) 16:00:32 CDT CPT-41759 Chest 2V Frontal and Lat 15:26:45 CDT CPT-63712 Chest 2V Frontal and Lat 10:23:27 CDT CPT-14599 Venipuncture Draw Fee 10:11:00 CDT CPT-22312 Administration single or combination vaccine inc oral 11 :56:38 CDT CPT-98703 Influenza split virus > age 3 11:56:38 CDT CPT-41833 Venipuncture Draw Fee 08:49:54 [employer] CPT-09430 EKG Trac and Interp 17:54:19 [employer]
--- OUTSIDE RECORDS SUMMARY | 2018-07-02 17:09 | XMS REPORT | Clinical Summary ---
Author Author Admin, TERELL Organization [facility] Fixed - Parking Tickets Address Unknown Phone Unavailable Allergies, Adverse Reactions, [...] Diabetes mellitus, type II 250.00 Active Marvel MRAROQUIN Diabetes mellitus without mention of complication, type 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 Erazo SEAMER Benign paroxysmal positional vertigo Vertigo, benign paroxysmal position 386.11 Inactive Mima Erazo SEAMER Benign paroxysmal positional vertigo High-risk sexual behavior V69.2 Active Alina Castaneda MD PhD High-risk sexual behavior Erectile dysfunction 302.72 Active Alina Castaneda MD PhD Psychosexual dysfunction with inhibited sexual excitement Constipation 564.00 Active Alina Castaneda MD PhD Constipation, unspecified Skin lesion 709.9 Active Alina Castaneda MD PhD Unspecified disorder of skin and subcutaneous tissue Malaise and fatigue 780.79 Active Cherelle Speaks SEAMER Other malaise and fatigue Diarrhea 787.91 Active Cherelle Speaks SEAMER Diarrhea PHARYNGITIS 462 Active Cherelle Speaks SEAMER Acute pharyngitis Colitis 558.9 Active Mima Erazo SEAMER Other and unspecified noninfectious gastroenteritis and colitis [...] PhD PNEUMONIA, ORGANISM UNSPECIFIED ICD-486 Inactive Alina Csataneda MD PhD RIB PAIN, RIGHT SIDED ICD-786.50 [...] Patient Instruction EFFEXOR XR 37.5 MG ORAL [id number] Take one by mouth daily VENLAFAXINE HCL 36187934363 Active Mima Vadimum ALBAN Active TRAVATAN Z 0.004 % OPHTH SOLN 1 drop each eye daily TRAVOPROST 75628712939 Active Mima Yokum SEAMER Active FLUVOXAMINE MALEATE 50 MG ORAL TABS 1 tab by mouth daily FLUVOXAMINE MALEATE 54598729996 No Longer Active Mima Vadimum ALBAN Active MORPHINE SULFATE ER 30 MG ORAL CR-TABS Take one capsule BID MORPHINE SULFATE 62017960391 Active Mima Yokum SEAMER Active TRUEPLUS LANCETS 30G MISC 3x a day LANCETS 61825459723 Active Marvel Charles SHAREPOINT TRAINER Active TRUE METRIX METER W/DEVICE KIT Check blood sugars 3x/day BLOOD GLUCOSE MONITORING SUPPL 94903207998 Active Marvel Mackenzieglari SHAREPOINT TRAINER Active TRUE METRIX BLOOD GLUCOSE TEST INVITR STRP Check blood sugars 3x/day. GLUCOSE BLOOD 32944264065 Active Marvel Mackenzieglari SHAREPOINT TRAINER Active VITAMIN D 2000 UNIT ORAL CAPS Take one by mouth daily CHOLECALCIFEROL 38812071633 Active Mima Yokum SEAMER Active LATUDA 60 MG ORAL TABS Take one by mouth daily LURASIDONE HCL 21423056376 No Longer Active Mima Yokum SEAMER Active HUMALOG KWIKPEN 100 UNIT/ML SC SOPN sliding scale if needed INSULIN LISPRO (HUMAN) 40573203796 Active Mima Yokum SEAMER Active TRAZODONE HCL 100 MG TABS 1 every night to prevent headaches TRAZODONE HCL 87245992577 Active Gabrielle Madl CASH MANAGEMENT CLERK Active LATUDA 60 MG ORAL TABS 1 tab daily LURASIDONE HCL 92191427248 Active Gabrielle Madl CASH MANAGEMENT CLERK Active CLONAZEPAM 1 MG TABS 1 pill by mouth three times daily CLONAZEPAM 88077329696 Active Gabrielle Madl CASH MANAGEMENT CLERK Active [facility] MILK OF MAGNESIA 400 MG/5ML ORAL SUSP 30ml by mouth bid prn MAGNESIUM HYDROXIDE 30217336099 Active Mason Loredo MD Active TYLENOL 8 HOUR 650 MG ORAL CR-TABS 1 tab QID prn ACETAMINOPHEN 99865610084 Active Mason Loredo MD Active MYLANTA GAS RELIEF MAXIMUM STR 125 MG ORAL CAPS 30cc every 4 hours prn 12/01 SIMETHICONE 60581788092 Active Mason Loerdo MD Active IMODIUM A-D 2 MG ORAL TABS 1 tab QID as needed LOPERAMIDE HCL 20138602427 Active Mason Loredo MD Active TRAVATAN Z 0.004 % SOLN 1 gtt each eye daily TRAVOPROST 78727761095 No Longer Active Mason Loredo MD Active LISINOPRIL 20 MG TABS 1 BID LISINOPRIL 03407021186 No Longer Active Mason Loredo MD Active LEVEMIR FLEXTOUCH 100 UNIT/ML SC SOPN 60 units SQ each evening, for diabetes INSULIN DETEMIR 97178764984 Active Mima Erazo APRN Active ZOLPIDEM TARTRATE 10 MG TABS take at bedtime ZOLPIDEM TARTRATE 51607175448 No Longer Active Mason Loredo MD Active HYDROCODONE-ACETAMINOPHEN 5-325 MG TABS 2 tabs by mouth three times daily for pain HYDROCODONE-ACETAMINOPHEN 00492826134 No Longer Active Mason Loredo MD Active ZOFRAN 4 MG TABS 1 po q4hr PRN Nausea ONDANSETRON HCL 38966467436 No Longer Active Mason Loredo MD Active LOMOTIL 2.5-0.025 MG ORAL TABS take 1-2 tabs PO after each stool, no more than 8 in 24 hours DIPHENOXYLATE-ATROPINE 51382832300 No Longer Active Mason Loredo MD Active COLACE 100 MG CAPS 1 pill by mouth twice daily, for constipation DOCUSATE SODIUM 45440808812 No Longer Active Mima Erazo APRN Active FLONASE ALLERGY RELIEF 50 MCG/ACT NASAL SUSP One spray each nostril BID x 1 week then daily FLUTICASONE PROPIONATE 87465356498 Active Mima Erazo APRN Active BD PEN NEEDLE MINI U/F 31G X 5 MM MISC 4 a day INSULIN PEN NEEDLE 62952223030 Active Marvel MARROQUIN Active AMITIZA 24 MCG ORAL CAPS Take one capsule BID for constipation LUBIPROSTONE 61772644422 Active Mima Erazo APRN Active TRUEPLUS LANCETS 30G MISC 3 a day LANCETS 86001340693 Active Marvel MARROQUIN Active TOLTERODINE TARTRATE 2 MG TABS 1 pill twice daily, for bladder TOLTERODINE TARTRATE 09230199791 No Longer Active Vanessa Hickey MD Active AMITIZA 24 MCG ORAL CAPS Take one capsule BID for constipation. LUBIPROSTONE 10939630811 No Longer Active Vanessa Hickey MD Active FLUVOXAMINE MALEATE 100 MG ORAL TABS take one tab every AM et HS, and take 1/ 2 tab at noon FLUVOXAMINE MALEATE 72643080057 Active Grace Azam RMA Active METOPROLOL SUCCINATE 100 MG [id number] 1 by mouth daily for blood pressure METOPROLOL SUCCINATE 02803050633 No Longer Active Grace Azam RMA Active METFORMIN HCL ER 500 MG [id number] Take three tablets by mouth everyday METFORMIN HCL 51076349064 No Longer Active Grace Azam RMA Active LOVAZA 1 GM CAPS 4 daily (for triglycerides) OMEGA-3- ACID ETHYL ESTERS 05136301886 No Longer Active Grace Azam RMA Active TRAZODONE HCL 100 MG ORAL TABS 1 tab by mouth for sleep TRAZODONE HCL 02838977911 No Longer Active Grace Azam RMA Active NOVOFINE 32G X 6 MM MISC use one four times per day INSULIN PEN NEEDLE 32486642833 No Longer Active Grace Azam RMA Active BACTROBAN 2 % CREAM Apply to affected area BID for up to 10 days MUPIROCIN CALCIUM 01249536336 No Longer Active Grace Azam RMA Active KEFLEX 500 MG CAP 1 po BID x 7 days CEPHALEXIN 07770932348 No Longer Active Cherelle Avila APRN Active FLUVOXAMINE MALEATE 100 MG TABS Take one (1) tablet by mouth am, 1/2 at noon FLUVOXAMINE MALEATE 12926547502 No Longer Active Miamcecily Erazo SEAMER Active CORICIDIN HBP CONGESTION/COUGH 10-200 MG ORAL CAPS Take as directed on box as needed for cold/flu symptoms DEXTROMETHORPHAN-GUAIFENESIN 25683683133 Active Cherelle Speaks SEAMER Active OMEGA-3 300 MG ORAL CAPS 4 caps by mouth daily OMEGA-3 FATTY ACIDS 62117226247 Active Mima Yokum SEAMER Active FLUVOXAMINE MALEATE 100 MG ORAL TABS Take 1/2 tab at noon FLUVOXAMINE MALEATE 11001070549 No Longer Active Cherelle Avila APRN Active [facility] LUBRICANT EYE DROPS 0.4-0.3 % OPHTH SOLN POLYETHYL GLYCOL-PROPYL GLYCOL 00095267306 Active Mima Erazo APRN Active MIRALAX POWD 17g by mouth daily, for constipation POLYETHYLENE GLYCOL 3350 62675760010 Active Mima Erazo APRN Active TRUETEST TEST STRP check blood sugars 3x/day GLUCOSE BLOOD 49440297622 Active Maliheh Ziglari SHAREPOINT TRAINER Active ACCU-CHEK ROSA UZMA Use device to check blood sugars BLOOD GLUCOSE MONITORING SUPPL 94155906671 No Longer Active Maliheh Ziglari SHAREPOINT TRAINER Active ACCU-CHEK ROSA INVITR STRP use strips with device to check blood sugars 3 times daily GLUCOSE BLOOD 27090057605 No Longer Active Mallashondaeh Ziglari SHAREPOINT TRAINER Active VERAPAMIL HCL ER 180 MG ORAL CR-TABS 1 pill by mouth twice daily, for migraine prevention VERAPAMIL HCL 37230536903 Active Mima Erazo APRN Active CYCLOBENZAPRINE HCL 10 MG TABS 1 tablet by mouth three times daily, scheduled CYCLOBENZAPRINE HCL 48375114687 No Longer Active Alina Castaneda MD PhD Active HUMALOG 100 UNIT/ML SOLN Take 20 units with breakfast, 10u with lunch and suppetr. INSULIN LISPRO (HUMAN) 66099385115 No Longer Active Alina Castaneda MD PhD Active TRUETEST TEST STRP check sugars 4x/day GLUCOSE BLOOD 18686536505 No Longer Active Alina Castaneda MD PhD Active MORPHINE SULFATE 30 MG TABS 1 pill by mouth twice daily, for pain MORPHINE SULFATE 43519276824 No Longer Active Mason Loredo MD Active ACYCLOVIR 400 MG ORAL TABS 1 pill three times daily x 5 days, for cold sore outbreak ACYCLOVIR 13446112348 No Longer Active Alina Castaneda MD PhD Active PENICILLIN V POTASSIUM 500 MG TABS 1 pill by mouth three times daily PENICILLIN V POTASSIUM 07360707498 No Longer Active Alina Castaneda MD PhD Active UROXATRAL 10 MG [id number] Take 1 tablet by mouth daily ALFUZOSIN HCL 02611489102 No Longer Active Alina Castaneda MD PhD Active THIOTHIXENE 5 MG CAPS by mouth twice a day THIOTHIXENE 05905325762 No Longer Active Alina Castaneda MD PhD Active ZYPREXA 7.5 MG TABS 1 at HS OLANZAPINE 25647797392 No Longer Active Alina Casatneda MD PhD Active BD INSULIN SYRINGE 28G X 1/2" 1 ML MISC 1 four times per day INSULIN SYRINGE-NEEDLE U-100 14632186185 Active Marvel Charles [facility] Active DETROL LA 4 MG [id number]-HPN Take 1 tablet by mouth daily TOLTERODINE TARTRATE 96573322171 No Longer Active Alina Castaneda MD PhD Active TERESE CONTOUR TEST STRP monitor blood sugars 3x/day GLUCOSE BLOOD 39106009972 No Longer Active Alina Castaneda MD PhD Active EQL TRUETEST TEST STRP Test blood sugar TID GLUCOSE BLOOD 40558134469 No Longer Active Alina Castaneda MD PhD Active FLUTICASONE PROPIONATE 50 MCG/ACT SUSP 2 sprays each nostril qDay x 30 days FLUTICASONE PROPIONATE 03158748472 No Longer Active Alina Castaneda MD PhD Active IBUPROFEN 200 MG TABS 1 Q 6 hr. PRN IBUPROFEN 34574290490 No Longer Active Alina Castaneda MD PhD Active NIACIN ER 500 MG CR-TABS 4 qHS (for triglycerides) NIACIN 25348190494 No Longer Active Alina Castaneda MD PhD Active ALFUZOSIN HCL ER 10 MG [id number] 1 tablet daily ALFUZOSIN HCL 81011217554 Active Mima Erazo SEAMER Active SAPHRIS 5 MG SUBL by mouth twice a day ASENAPINE MALEATE 64104854466 No Longer Active Marvel Charles SHAREPOINT TRAINER Active ACETAMINOPHEN 500 MG TABS 2 Q 6 hr. PRN ACETAMINOPHEN 77726706662 No Longer Active Maliheh Ziglari SHAREPOINT TRAINER Active ORPHENADRINE CITRATE ER 100 MG [id number] 1 every 12 hr. as needed ORPHENADRINE CITRATE 09001306638 No Longer Active Alina Castaneda MD PhD Active NIACIN CR 500 MG CR-TABS 2 qHS NIACIN 09435089880 No Longer Active Alina Castaneda MD PhD Active AMOXICILLIN 500 MG CAPS 2 po BID x 10 days AMOXICILLIN 97705405890 No Longer Active Alina Castaneda MD PhD Active HYDROCODONE-ACETAMINOPHEN 7.5-325 MG TABS 1 four times a day as needed for pain HYDROCODONE-ACETAMINOPHEN 36364131662 No Longer Active Alina Castaneda MD PhD Active DOXEPIN HCL 10 MG CAPS Take 1 tablet by mouth daily DOXEPIN HCL 53942274044 No Longer Active Salina Han [facility] Active NAVANE 10 MG CAPS 1/2 tablet twice a day THIOTHIXENE No Longer Active Salina Han [facility] Active CYCLOBENZAPRINE HCL 10 MG TABS 1/2 tablet by mouth every 8 hours as needed for muscle spasms CYCLOBENZAPRINE HCL 83935019207 No Longer Active Alina Castaneda MD PhD Active BACTROBAN 2 % CREAM apply to ear and nose twice daily MUPIROCIN CALCIUM 34621091883 No Longer Active Alina Castaneda MD PhD Active HYDROCODONE-ACETAMINOPHEN 5-325 MG TABS take one tablet by mouth every four hours as needed for pain HYDROCODONE-ACETAMINOPHEN 29872958242 No Longer Active Alina Castaneda MD PhD Active ZYPREXA 5 MG TABS take one tablet by mouth every evening OLANZAPINE 03794027298 No Longer Active Alina Castaneda MD PhD Active ALBUTEROL SULFATE 0.083 % NEBU SOLN one vial per nebulizer TID and PRN cough/ soa ALBUTEROL SULFATE 69302199990 No Longer Active Alina Castaneda MD PhD Active GUAIFENESIN 600 MG [id number] 1 tablet by mouth twice daily if needed for cough GUAIFENESIN 25319978618 No Longer Active Marvel MARROQUIN Active AZITHROMYCIN 500 MG SOLR 1 po q day AZITHROMYCIN 64688770283 No Longer Active Alina Castaneda MD PhD Active PROMETHAZINE-CODEINE 6.25-10 MG/5ML SYRP 1 tsp po q 6 hours prn cough PROMETHAZINE-CODEINE 54618224193 No Longer Active Alina Castaneda MD PhD Active CEFDINIR 300 MG CAPS by mouth twice a day CEFDINIR 78343792072 No Longer Active Alina Castaneda MD PhD Active METFORMIN HCL 500 MG [id number]-ILN Take 3 tablets by mouth everyday METFORMIN HCL 87370581093 No Longer Active Alina Castaneda MD PhD Active LEVEMIR 100 UNIT/ML SOLN 90 units SQ qHS INSULIN DETEMIR 45548895626 No Longer Active Marvel MARROQUIN Active TOPROL XL 100 MG [id number] 1 @ HS METOPROLOL SUCCINATE 45035381184 No Longer Active Marvel MARROQUIN Active ALLOPURINOL 300 MG TABS Take one by mouth daily ALLOPURINOL 67960664807 Active Mima Yokum SEAMER Active ZYPREXA 10 MG TABS Take one by mouth daily OLANZAPINE 23274100362 No Longer Active Alina Castaneda MD PhD Active NOVOLOG 100 UNIT/ML SOLN 40 units with every meal INSULIN ASPART 51046057084 No Longer Active Alina Castaneda MD PhD Active VERAPAMIL HCL CR 120 MG TAB CR 1 qPM VERAPAMIL HCL 51693487121 No Longer Active Salina Emely RMA Active ZYPREXA 15 MG TABS Take 1 tablet by mouth daily OLANZAPINE 91182388240 No Longer Active Marvel MENDOZAP Active ALBUTEROL SULFATE (2.5 MG/3ML) 0.083% NEBU 1 neb tid and prn cough ALBUTEROL SULFATE 20229420095 No Longer Active Alina Castaneda MD PhD Active LANTUS 100 UNIT/ML SOLN 60 units sq q hs INSULIN GLARGINE 01821019384 No Longer Active Alina Mendez RMA Active ALBUTEROL SULFATE (2.5 MG/3ML) 0.083% NEBU 1 neb tid and prn cough ALBUTEROL SULFATE (2.5 MG/3ML) 0.083% NEBU 919644 ALBUTEROL SULFATE Inactive ZYPREXA 15 MG TABS Take 1 tablet by mouth daily ZYPREXA 15 MG TABS 836623 OLANZAPINE Inactive VERAPAMIL HCL CR 120 MG TAB CR 1 qPM VERAPAMIL HCL CR 120 MG TAB CR VERAPAMIL HCL Inactive ZYPREXA 10 MG TABS Take one by mouth daily ZYPREXA 10 MG TABS 710262 OLANZAPINE Inactive TOPROL XL 100 MG [id number] 1 @ HS TOPROL XL 100 MG [id number] METOPROLOL SUCCINATE Inactive LEVEMIR 100 UNIT/ML SOLN 90 units SQ qHS LEVEMIR 100 UNIT/ML SOLN INSULIN DETEMIR Inactive PROMETHAZINE-CODEINE 6.25-10 MG/5ML SYRP 1 tsp po q 6 hours prn cough PROMETHAZINE-CODEINE 6.25-10 MG/5ML SYRP 270747 PROMETHAZINE- CODEINE Inactive GUAIFENESIN 600 MG [id number] 1 tablet by mouth twice daily if needed for cough GUAIFENESIN 600 MG [id number]-[id number] GUAIFENESIN Inactive ALBUTEROL SULFATE 0.083 % NEBU SOLN one vial per nebulizer TID and PRN cough/ soa ALBUTEROL SULFATE 0.083 % [facility] 119810 ALBUTEROL SULFATE Inactive ZYPREXA 5 MG TABS take one tablet by mouth every evening ZYPREXA 5 MG TABS 483378 OLANZAPINE Inactive HYDROCODONE-ACETAMINOPHEN 5-325 MG TABS take one tablet by mouth every four hours as needed for pain HYDROCODONE-ACETAMINOPHEN 5-325 MG TABS 814412 HYDROCODONE-ACETAMINOPHEN Inactive BACTROBAN 2 % CREAM apply to ear and nose twice daily BACTROBAN 2 % CREAM 615071 MUPIROCIN CALCIUM Inactive CYCLOBENZAPRINE HCL 10 MG TABS 1/2 tablet by mouth every 8 hours as needed for muscle spasms CYCLOBENZAPRINE HCL 10 MG TABS 405384 CYCLOBENZAPRINE HCL Inactive NAVANE 10 MG CAPS 1/2 tablet twice a day NAVANE 10 MG CAPS THIOTHIXENE Inactive DOXEPIN HCL 10 MG CAPS Take 1 tablet by mouth daily DOXEPIN HCL 10 MG CAPS 2902092 DOXEPIN HCL Inactive HYDROCODONE-ACETAMINOPHEN 7.5-325 MG TABS 1 four times a day as needed for pain HYDROCODONE-ACETAMINOPHEN 7.5-325 MG TABS 320717 HYDROCODONE-ACETAMINOPHEN Inactive NIACIN CR 500 MG CR-TABS 2 qHS NIACIN CR 500 MG CR- TABS NIACIN Inactive ORPHENADRINE CITRATE ER 100 MG [id number] 1 every 12 hr. as needed ORPHENADRINE CITRATE ER 100 MG [id number] ORPHENADRINE CITRATE Inactive ACETAMINOPHEN 500 MG TABS 2 Q 6 hr. PRN ACETAMINOPHEN 500 MG TABS 849394 ACETAMINOPHEN Inactive SAPHRIS 5 MG SUBL by mouth twice a day SAPHRIS 5 MG SUBL ASENAPINE MALEATE Inactive NIACIN ER 500 MG CR-TABS 4 qHS (for triglycerides) NIACIN ER 500 MG CR-TABS NIACIN Inactive IBUPROFEN 200 MG TABS 1 Q 6 hr. PRN IBUPROFEN 200 MG TABS 781450 IBUPROFEN Inactive FLUTICASONE PROPIONATE 50 MCG/ACT SUSP 2 sprays each nostril qDay x 30 days FLUTICASONE PROPIONATE 50 MCG/ACT SUSP 3757102 FLUTICASONE PROPIONATE Inactive EQL TRUETEST TEST STRP Test blood sugar TID EQL TRUETEST TEST STRP GLUCOSE BLOOD Inactive TERESE CONTOUR TEST STRP monitor blood sugars 3x/day TERESE CONTOUR TEST STRP GLUCOSE BLOOD Inactive DETROL LA 4 MG [id number] Take 1 tablet by mouth daily DETROL LA 4 MG [id number] TOLTERODINE TARTRATE Inactive ZYPREXA 7.5 MG TABS 1 at HS ZYPREXA 7.5 MG TABS 283140 OLANZAPINE Inactive THIOTHIXENE 5 MG CAPS by mouth twice a day THIOTHIXENE 5 MG CAPS 937236 THIOTHIXENE Inactive UROXATRAL 10 MG [id number]-DUL Take 1 tablet by mouth daily UROXATRAL 10 MG [id number] ALFUZOSIN HCL Inactive ACYCLOVIR 400 MG ORAL TABS 1 pill three times daily x 5 days, for cold sore outbreak ACYCLOVIR 400 MG ORAL TABS 124294 ACYCLOVIR Inactive TRUETEST TEST STRP check sugars 4x/day TRUETEST TEST STRP GLUCOSE BLOOD Inactive HUMALOG 100 UNIT/ML SOLN Take 20 units with breakfast, 10u with lunch and suppetr. HUMALOG 100 UNIT/ML SOLN INSULIN LISPRO ( HUMAN) Inactive CYCLOBENZAPRINE HCL 10 MG TABS 1 tablet by mouth three times daily, scheduled CYCLOBENZAPRINE HCL 10 MG TABS 499328 CYCLOBENZAPRINE HCL Inactive ACCU-CHEK ROSA INVITR STRP use strips with device to check blood sugars 3 times daily ACCU-CHEK ROSA INVITR STRP GLUCOSE BLOOD Inactive ACCU-CHEK ROSA UZMA Use device to check blood sugars ACCU-CHEK ROSA UZMA BLOOD GLUCOSE MONITORING SUPPL Inactive FLUVOXAMINE MALEATE 100 MG ORAL TABS Take 1/2 tab at noon FLUVOXAMINE MALEATE 100 MG ORAL TABS 089909 FLUVOXAMINE MALEATE Inactive FLUVOXAMINE MALEATE 100 MG TABS Take one (1) tablet by mouth am, 1/2 at noon FLUVOXAMINE MALEATE 100 MG TABS 117120 FLUVOXAMINE MALEATE Inactive BACTROBAN 2 % CREAM Apply to affected area BID for up to 10 days BACTROBAN 2 % CREAM 182683 MUPIROCIN CALCIUM Inactive NOVOFINE 32G X 6 MM MISC use one four times per day NOVOFINE 32G X 6 MM MISC INSULIN PEN NEEDLE Inactive TRAZODONE HCL 100 MG ORAL TABS 1 tab by mouth for sleep TRAZODONE HCL 100 MG ORAL TABS 716198 TRAZODONE HCL Inactive LOVAZA 1 GM CAPS 4 daily (for triglycerides) LOVAZA 1 GM CAPS 739154 FYOXO-7-XFYU ETHYL ESTERS Inactive METFORMIN HCL ER 500 MG [id number] Take three tablets by mouth everyday METFORMIN HCL ER 500 MG DH65T-FEC METFORMIN HCL Inactive METOPROLOL SUCCINATE 100 MG ES37A-SBH 1 by mouth daily for blood pressure METOPROLOL SUCCINATE 100 MG [id number]-JQA METOPROLOL SUCCINATE Inactive AMITIZA 24 MCG ORAL CAPS Take one capsule BID for constipation. AMITIZA 24 MCG ORAL CAPS LUBIPROSTONE Inactive TOLTERODINE TARTRATE 2 MG TABS 1 pill twice daily, for bladder TOLTERODINE TARTRATE 2 MG TABS 966206 TOLTERODINE TARTRATE Inactive COLACE 100 MG CAPS 1 pill by mouth twice daily, for constipation COLACE 100 MG CAPS 9936893 DOCUSATE SODIUM Inactive LOMOTIL 2.5-0.025 MG ORAL TABS take 1-2 tabs PO after each stool, no more than 8 in 24 hours LOMOTIL 2.5-0.025 MG ORAL TABS 0462034 DIPHENOXYLATE-ATROPINE Inactive ZOFRAN 4 MG TABS 1 po q4hr PRN Nausea ZOFRAN 4 MG TABS 126206 ONDANSETRON HCL Inactive HYDROCODONE-ACETAMINOPHEN 5-325 MG TABS 2 tabs by mouth three times daily for pain HYDROCODONE-ACETAMINOPHEN 5-325 MG TABS 258879 HYDROCODONE-ACETAMINOPHEN Inactive ZOLPIDEM TARTRATE 10 MG TABS take at bedtime ZOLPIDEM TARTRATE 10 MG TABS 716848 ZOLPIDEM TARTRATE Inactive LISINOPRIL 20 MG TABS 1 BID LISINOPRIL 20 MG TABS 033698 LISINOPRIL Inactive TRAVATAN Z 0.004 % SOLN 1 gtt each eye daily TRAVATAN Z 0.004 % SOLN TRAVOPROST Inactive LATUDA 60 MG ORAL TABS Take one by mouth daily LATUDA 60 MG ORAL TABS LURASIDONE HCL Inactive FLUVOXAMINE MALEATE 50 MG ORAL TABS 1 tab by mouth daily FLUVOXAMINE MALEATE 50 MG ORAL TABS 361470 FLUVOXAMINE MALEATE Inactive CEFDINIR 300 MG CAPS by mouth twice a day CEFDINIR 300 MG CAPS 493555 CEFDINIR Inactive AZITHROMYCIN 500 MG SOLR 1 po q day AZITHROMYCIN 500 MG SOLR 83859777769 AZITHROMYCIN Inactive AMOXICILLIN 500 MG CAPS 2 po BID x 10 days AMOXICILLIN 500 MG CAPS 389675 AMOXICILLIN Inactive PENICILLIN V POTASSIUM 500 MG TABS 1 pill by mouth three times daily PENICILLIN V POTASSIUM 500 MG TABS 132991 PENICILLIN V POTASSIUM Inactive KEFLEX 500 MG CAP 1 po BID x 7 days KEFLEX 500 MG CAP 877615 CEPHALEXIN Inactive Immunizations Vaccine Administration Date Value [...] Fluvirin, Fluarix, Agriflu(>=18 yo)) Fluzone (>3 yrs.) [[id number]] Influenza, seasonal, injectable pneumococcal immunization administered Pneumovax [...] HGBA1C - Chemistry sodium, serum 140 mmol/L 368-224 0054/11/09 potassium, serum 4.0 mmol/L 3.5-5.2 chloride, serum [...] Acid - Chemistry cholesterol, serum 187 mg/dL 137-702 6044/06/14 triglyceride, serum, fasting 246 mg/dL 30-200 HDL [...] negative Encounters Code Encounter Date Provider Facility CPT-15441 Level 3 Est. Patient 09:12:14 PHARMACY SPECIALIST Mima Erazo [facility] CPT-49394 Level 3 Est. Patient 16:52:51 CDT Vanessa Hickey MD [facility]-68118 Level 3 Est. Patient 17:40:16 CDT Mima Erazo [facility]-22879 Level 3 Est. Patient 14:34:52 CDT Vanessa Hickey MD [facility]-08968 Level 3 Est. Patient 16:27:51 CDT Mima Erazo [facility] [place]-40961 Level 3 Est. Patient 14:39:00 PHARMACY SPECIALIST Vanessa Hickey MD [facility]-89749 Level 2 Est. Patient 18:43:34 CDT Mima Erazo [facility] CPT-29172 Level 3 Est. Patient 16:22:09 CDT Cherelle Avila [facility] CPT-72347 Level 4 Est. Patient 17:55:14 CDT Mima Erazo [facility] CPT-50430 Level 2 Est. Patient 17:13:21 CDT Alina Castaneda MD [facility]-44795 Level 3 Est. Patient 14:46:15 CDT Vanessa Hickey MD [facility]-59713 Level 3 Est. Patient 09:34:56 CDT Alina Castaneda MD [facility]03840 Level 3 Est. Patient 21:40:19 CDT Mima Erazo [facility] CPT-52848 Level 3 Est. Patient 09:26:40 CDT Marvel Charles [facility]-43091 Level 3 Est. Patient 12:36:43 CDT Vanessa Hickey MD [facility]-36161 Level 3 Est. Patient 12:57:49 CDT Vanessa Hickey MD [facility]-01703 Level 3 Est. Patient 00:28:25 CDT Alina Castaneda MD [facility]-81396 Level 2 Est. Patient 12:52:14 CDT Alina Castaneda MD [facility]-52791 Level 3 Est. Patient 11:51:18 PHARMACY SPECIALIST Alina Castaneda MD [facility]-57813 Level 3 Est. Patient 10:09:22 PHARMACY SPECIALIST Alina Castaneda [facility]18183 Level 3 Est. Patient 14:36:26 [facility]78602 Level 3 Est. Patient 13:34:47 PHARMACY SPECIALIST Alina Castaneda MD [facility]97529 Level 3 Est. Patient 19:52:08 PHARMACY SPECIALIST Alina Castaneda MD [facility]73375 Level 3 Est. Patient 10:01:51 [facility]-00136 Level 3 Est. Patient 21:54:06 CDT Vanessa Hickey MD [facility]04379 Level 3 Est. Patient 08:54:46 CDT Alina Castaneda MD [facility]-64468 Level 3 Est. Patient 09:32:11 CDT Marvel Charles [facility]-09936 Level 3 Est. Patient 12:02:49 CDT Alina Castaneda MD [facility]27209 Level 3 Est. Patient 19:17:33 CDT Alina Castaneda MD [facility]66775 Level 3 Est. Patient 13:19:10 CDT Marvel Charles [facility]-99217 Level 3 Est. Patient 08:20:05 CDT Alina Castaneda MD [facility]-87959 Level 3 Est. Patient 15:17:18 CDT Alina Castaneda MD [facility]-19600 Level 3 Est. Patient 14:25:36 PHARMACY SPECIALIST Marvel Charles [facility]-63111 Level 3 Est. Patient 10:09:15 PHARMACY SPECIALIST [facility]-37126 Level 3 Est. Patient 21:28:43 CDT Alina Castaneda MD [facility]-09015 Level 3 Est. Patient 15:20:11 [facility] Level 4 Est. Patient 19:08:12 CDT Alina Castaneda MD [facility]-16250 Level 3 Est. Patient 15:06:39 [facility] Level 4 Est. Patient 17:48:15 CDT Alina Castaneda MD [facility]-56894 Level 3 Est. Patient 14:53:49 CDT Alina Castaneda MD [facility]-76184 Level 3 Est. Patient 09:35:16 CDT Alina Castaneda MD [facility]-14538 Level 3 Est. Patient 12:23:22 CDT Alina Castaneda MD [facility]-85133 Level 3 Est. Patient 16:19:15 CDT Alina Castaneda MD [facility]-22907 Level 3 Est. Patient 21:39:56 PHARMACY SPECIALIST Alina Castaneda MD [facility]06966 Level 4 Est. Patient 14:12:56 PHARMACY SPECIALIST Alina Castaneda MD [facility]-21439 Level 2 Est. Patient 15:34:57 PHARMACY SPECIALIST Alina Castaneda MD [facility]-95834 Level 3 Est. Patient 12:17:04 PHARMACY SPECIALIST Alina Castaneda MD [facility]-74851 Level 3 Est. Patient 09:18:18 PHARMACY SPECIALIST [facility] CPT-29999 Level 2 Est. Patient 21:50:24 CDT Alina Castaneda MD [facility]-77573 Level 3 Est. Patient 09:17:28 CDT [facility]-93136 Level 4 Est. Patient 18:54:02 CDT Alina Castaneda MD [facility]-78395 Level 3 Est. Patient 10:47:10 CDT Alina Castaneda MD [facility]-29250 Level 3 Est. Patient 09:22:20 CDT [facility] CPT-16602 Level 3 Est. Patient 16:39:43 CDT [facility] CPT-91507 Level 3 Est. Patient 16:05:16 CDT Alina Castaneda MD [facility]-24665 Level 3 Est. Patient 00:29:15 CDT Alina Castaneda MD [facility]-35694 Level 3 Est. Patient 10:49:22 PHARMACY SPECIALIST [facility]-19805 Level 3 Est. Patient 21:30:19 PHARMACY SPECIALIST Alina Castaneda MD [facility]-12505 Level 4 Est. Patient 17:04:11 PHARMACY SPECIALIST [facility] CPT-78483 Level 3 Est. Patient 15:34:11 PHARMACY SPECIALIST [facility] CPT-21872 Level 2 Est. Patient 12:51:58 PHARMACY SPECIALIST Alina Castaneda MD [facility] CPT-55458 Level 3 Est. Patient 13:20:01 PHARMACY SPECIALIST Alina Castaneda MD [facility] CPT-73245 Level 3 Est. Patient 09:23:35 CDT Alina Castaneda MD [facility] Procedures Code Procedure Name Date Entry Date Standard Description CPT-93892 HGBA1C - LAB USE ONLY 09:30:27 PHARMACY SPECIALIST CPT-13720 BMP - LAB USE ONLY 09:30:27 PHARMACY SPECIALIST CPT-33117 Venipuncture Draw Fee 09:30:26 PHARMACY SPECIALIST CPT-TCMM Transitional Care Mgmt-Moderate 10:25:31 CDT CPT-08633 Bladder Scan 14:34:53 CDT CPT-38082 Bladder Scan 14:39:01 PHARMACY SPECIALIST CPT-TCMM Transitional Care Mgmt-Moderate 10:30:19 PHARMACY SPECIALIST CPT-87394 Bladder Scan 12:36:44 CDT CPT-70994 Bladder Scan 21:54:06 CDT CPT-G0008 Administration of Influenza Virus Vaccine 13:05:26 CDT CPT-68994 Fluzone Quadrivalent Intramuscular Suspension 0.5 ML 13: 05:26 CDT CPT-91157 Administration single or combination vaccine inc oral 11 :49:51 CDT CPT-02656 Pneumovax 11:49:51 CDT CPT-14310 Ribs unilateral 2V 12:37:22 PHARMACY SPECIALIST CPT-82675 Chest 2V Frontal and Lat 17:15:26 CDT CPT-46815 Abx/Therapy Injection 18:54:02 CDT CPT-J0696 Rocephin 1000 mg (Ceftriaxone) 16:00:32 CDT CPT-43349 Chest 2V Frontal and Lat 15:26:45 CDT CPT-61574 Chest 2V Frontal and Lat 10:23:27 CDT CPT-85043 Venipuncture Draw Fee 10:11:00 CDT CPT-43606 Administration single or combination vaccine inc oral 11 :56:38 CDT CPT-63490 Influenza split virus > age 3 11:56:38 CDT CPT-60998 Venipuncture Draw Fee 08:49:54 PHARMACY SPECIALIST CPT-22682 EKG Trac and Interp 17:54:19 PHARMACY SPECIALIST
--- OUTSIDE RECORDS SUMMARY | 2018-07-02 17:11 | XMS REPORT | Clinical Summary ---
Author Author Admin, TERELL Organization [facility] Address Unknown Phone Unavailable Allergies, [...] FOR MALIGNANT NEOPLASM OF PROSTATE ICD-V76.44 Inactive Alian Castaneda MD PhD Hypoglycemia ICD-251.2 Inactive Alina Castaneda MD PhD Dizziness ICD-780.4 Inactive Alina Castaneda MD PhD Confusion ICD-298.9 Inactive Alina Castaneda MD PhD Medication List Medication Instructions Start Date Stop Date Generic Name NDC Status Provider Patient Instruction LATUDA 120 MG ORAL TABS 1 pill by mouth nightly LURASIDONE HCL 56314835966 Active Alina Castaneda MD PhD Active COLACE 100 MG CAPS 1 pill by mouth twice daily, for constipation DOCUSATE SODIUM 63149935842 Active Alina Castaneda MD PhD Active TRUETEST TEST STRP check blood sugars 3x/day GLUCOSE BLOOD 57898025743 Active Marvel MARROQUIN Active ACCU-CHEK ROSA UZMA Use device to check blood sugars BLOOD GLUCOSE MONITORING SUPPL 76421450042 No Longer Active Marvel MARROQUIN Active ACCU-CHEK ROSA INVITR STRP use strips with device to check blood sugars 3 times daily GLUCOSE BLOOD 45707986825 No Longer Active Marvel MARROQUIN Active VERAPAMIL HCL ER 180 MG ORAL CR-TABS 1 pill by mouth twice daily, for migraine prevention VERAPAMIL HCL 95504932812 Active Alina Castaneda MD PhD Active CYCLOBENZAPRINE HCL 10 MG TABS 1 tablet by mouth three times daily, scheduled CYCLOBENZAPRINE HCL 78099821268 No Longer Active Alina Castaneda MD PhD Active HUMALOG 100 UNIT/ML SOLN Take 20 units with breakfast, 10u with lunch and suppetr. INSULIN LISPRO (HUMAN) 63569957419 No Longer Active Alina Castaneda MD PhD Active TRUETEST TEST STRP check sugars 4x/day GLUCOSE BLOOD 42051311710 No Longer Active Alina Castaneda MD PhD Active MORPHINE SULFATE 30 MG TABS 1 pill by mouth twice daily, for pain MORPHINE SULFATE 53876988753 Active Alina Castaneda MD PhD Active ACYCLOVIR 400 MG ORAL TABS 1 pill three times daily x 5 days, for cold sore outbreak ACYCLOVIR 83881135447 No Longer Active Alina Castaneda MD PhD Active PENICILLIN V POTASSIUM 500 MG TABS 1 pill by mouth three times daily PENICILLIN V POTASSIUM 64799713137 No Longer Active Alina Castaneda MD PhD Active UROXATRAL 10 MG [id number] Take 1 tablet by mouth daily ALFUZOSIN HCL 21710069358 No Longer Active Alina Castaneda MD PhD Active THIOTHIXENE 5 MG CAPS by mouth twice a day THIOTHIXENE 29113132330 No Longer Active Alina Castaneda MD PhD Active ZYPREXA 7.5 MG TABS 1 at HS OLANZAPINE 57067720919 No Longer Active Alina Castaneda MD PhD Active LEVEMIR 100 UNIT/ML SOLN Take 70 u at 7-8pm INSULIN DETEMIR 33652796647 Active Maliheh Ziglari BELT CUTTER Active BD INSULIN SYRINGE 28G X 1/2" 1 ML MISC 1 four times per day INSULIN SYRINGE-NEEDLE U-100 01429516638 Active Maliheh Ziglari BELT CUTTER Active TOLTERODINE TARTRATE 2 MG TABS 1 pill twice daily, for bladder TOLTERODINE TARTRATE 47879187810 Active Alina Castaneda MD PhD Active DETROL LA 4 MG [id number] Take 1 tablet by mouth daily TOLTERODINE TARTRATE 02226076581 No Longer Active Alina Castaneda MD PhD Active HYDROCODONE-ACETAMINOPHEN 5-325 MG TABS 2 tabs by mouth three times daily as needed for pain HYDROCODONE-ACETAMINOPHEN 39835609046 Active Alina Castaneda MD PhD Active TERESE CONTOUR TEST STRP monitor blood sugars 3x/day GLUCOSE BLOOD 24492541023 No Longer Active Alina Castaneda MD PhD Active EQL TRUETEST TEST STRP Test blood sugar TID GLUCOSE BLOOD 41783844919 No Longer Active Alina Castaneda MD PhD Active FLUTICASONE PROPIONATE 50 MCG/ACT SUSP 2 sprays each nostril qDay x 30 days FLUTICASONE PROPIONATE 18936721830 No Longer Active Alina Castaneda MD PhD Active IBUPROFEN 200 MG TABS 1 Q 6 hr. PRN IBUPROFEN 90620429036 No Longer Active Alina Castaneda MD PhD Active NIACIN ER 500 MG CR-TABS 4 qHS (for triglycerides) NIACIN 46577114712 No Longer Active Alina Castaneda MD PhD Active ALFUZOSIN HCL ER 10 MG [id number] 1 tablet daily ALFUZOSIN HCL 88051442298 Active Vanessa Hickey MD Active CLONAZEPAM 1 MG TABS 1 pill by mouth three times daily CLONAZEPAM 04795346157 Active Alina Castaneda MD PhD Active LOVAZA 1 GM CAPS 4 daily (for triglycerides) [id number]-4-AYSM ETHYL ESTERS 60880554264 Active Mao Rodriguez MD Active SAPHRIS 5 MG SUBL by mouth twice a day ASENAPINE MALEATE 77766978642 No Longer Active Marvel MARROQUIN Active ACETAMINOPHEN 500 MG TABS 2 Q 6 hr. PRN ACETAMINOPHEN 79323020025 No Longer Active Maliheh Ziglari BELT CUTTER Active ORPHENADRINE CITRATE ER 100 MG [id number]-MWN 1 every 12 hr. as needed ORPHENADRINE CITRATE 51968004685 No Longer Active Alina Castaneda MD PhD Active NIACIN CR 500 MG CR-TABS 2 qHS NIACIN 92129105958 No Longer Active Alina Castaneda MD PhD Active AMOXICILLIN 500 MG CAPS 2 po BID x 10 days AMOXICILLIN 52048441922 No Longer Active Alina Castaneda MD PhD Active HYDROCODONE-ACETAMINOPHEN 7.5-325 MG TABS 1 four times a day as needed for pain HYDROCODONE-ACETAMINOPHEN 26130983018 No Longer Active Alina Castaneda MD PhD Active METFORMIN HCL ER 500 MG [id number]-BCH Take three tablets by mouth everyday METFORMIN HCL 68886394982 Active Maljohn Mackenzieglari BELT CUTTER Active DOXEPIN HCL 10 MG CAPS Take 1 tablet by mouth daily DOXEPIN HCL 60963859670 No Longer Active Salina Han A Active NAVANE 10 MG CAPS 1/2 tablet twice a day THIOTHIXENE No Longer Active Salina Han [facility] Active CYCLOBENZAPRINE HCL 10 MG TABS 1/2 tablet by mouth every 8 hours as needed for muscle spasms CYCLOBENZAPRINE HCL 75765277418 No Longer Active Alina Castaneda MD PhD Active BACTROBAN 2 % CREAM apply to ear and nose twice daily MUPIROCIN CALCIUM 99629606006 No Longer Active Alina Castaneda MD PhD Active HYDROCODONE-ACETAMINOPHEN 5-325 MG TABS take one tablet by mouth every four hours as needed for pain HYDROCODONE-ACETAMINOPHEN 78992659598 No Longer Active Alina Castaneda MD PhD Active ZOLPIDEM TARTRATE 10 MG TABS take at bedtime ZOLPIDEM TARTRATE 15452656189 Active Alina Castaneda MD PhD Active ZYPREXA 5 MG TABS take one tablet by mouth every evening OLANZAPINE 38582729520 No Longer Active Alina Castaneda MD PhD Active ALBUTEROL SULFATE 0.083 % NEBU SOLN one vial per nebulizer TID and PRN cough/ soa ALBUTEROL SULFATE 42717056384 No Longer Active Alina Castaneda MD PhD Active GUAIFENESIN 600 MG [id number] 1 tablet by mouth twice daily if needed for cough GUAIFENESIN 71765484206 No Longer Active Marvel MARROQUIN Active AZITHROMYCIN 500 MG SOLR 1 po q day AZITHROMYCIN 67342761668 No Longer Active Alina Castaneda MD PhD Active METOPROLOL SUCCINATE 100 MG [id number] 1 by mouth daily for blood pressure METOPROLOL SUCCINATE 00215049097 Active Alina Castaneda MD PhD Active PROMETHAZINE-CODEINE 6.25-10 MG/5ML SYRP 1 tsp po q 6 hours prn cough PROMETHAZINE-CODEINE 42230130165 No Longer Active Alina Castaneda MD PhD Active CEFDINIR 300 MG CAPS by mouth twice a day CEFDINIR 77054763477 No Longer Active Alina Castaneda MD PhD Active METFORMIN HCL 500 MG BF75K-ALM Take 3 tablets by mouth everyday METFORMIN HCL 79502483130 No Longer Active Alina Castaneda MD PhD Active LEVEMIR 100 UNIT/ML SOLN 90 units SQ qHS INSULIN DETEMIR 96091575054 No Longer Active Marvel MARROQUIN Active TOPROL XL 100 MG [id number]-NYK 1 @ HS METOPROLOL SUCCINATE 23920009338 No Longer Active Marvel MARROQUIN Active ALLOPURINOL 300 MG TABS Take one by mouth daily ALLOPURINOL 22830494998 Active Alina Castaneda MD PhD Active ZYPREXA 10 MG TABS Take one by mouth daily OLANZAPINE 41791364707 No Longer Active Alina Castaneda MD PhD Active NOVOLOG 100 UNIT/ML SOLN 40 units with every meal INSULIN ASPART 72107498710 No Longer Active Alina Castaneda MD PhD Active VERAPAMIL HCL CR 120 MG TAB CR 1 qPM VERAPAMIL HCL 58436675859 No Longer Active Salina Han [facility] Active ZYPREXA 15 MG TABS Take 1 tablet by mouth daily OLANZAPINE 77264998465 No Longer Active Marvel Mackenzieanca BELT CUTTER Active LISINOPRIL 20 MG TABS 1 BID LISINOPRIL 75771941036 Active Alina Castaneda MD PhD Active ALBUTEROL SULFATE (2.5 MG/3ML) 0.083% NEBU 1 neb tid and prn cough ALBUTEROL SULFATE 72548491588 No Longer Active Alina Castaneda MD PhD Active FLUVOXAMINE MALEATE 100 MG TABS Take one (1) tablet by mouth am, 1/2 at noon, 1 pm FLUVOXAMINE MALEATE 40707020141 Active Alina Castaneda MD PhD Active TRAVATAN Z 0.004 % SOLN 1 gtt each eye daily TRAVOPROST 78032039227 Active CRYSTAL Suarez Active LANTUS 100 UNIT/ML SOLN 60 units sq q hs INSULIN GLARGINE 83005107524 No Longer Active CRYSTAL Suarez Active ALBUTEROL SULFATE (2.5 MG/3ML) 0.083% NEBU 1 neb tid and prn cough ALBUTEROL SULFATE (2.5 MG/3ML) 0.083% NEBU 234097 ALBUTEROL SULFATE Inactive ZYPREXA 15 MG TABS Take 1 tablet by mouth daily ZYPREXA 15 MG TABS 887308 OLANZAPINE Inactive VERAPAMIL HCL CR 120 MG TAB CR 1 qPM VERAPAMIL HCL CR 120 MG TAB CR VERAPAMIL HCL Inactive ZYPREXA 10 MG TABS Take one by mouth daily ZYPREXA 10 MG TABS 361622 OLANZAPINE Inactive TOPROL XL 100 MG [id number] 1 @ HS TOPROL XL 100 MG CF57Z-XTZ METOPROLOL SUCCINATE Inactive LEVEMIR 100 UNIT/ML SOLN 90 units SQ qHS LEVEMIR 100 UNIT/ML SOLN INSULIN DETEMIR Inactive PROMETHAZINE-CODEINE 6.25-10 MG/5ML SYRP 1 tsp po q 6 hours prn cough PROMETHAZINE-CODEINE 6.25-10 MG/5ML SYRP 729813 PROMETHAZINE- CODEINE Inactive GUAIFENESIN 600 MG [id number] 1 tablet by mouth twice daily if needed for cough GUAIFENESIN 600 MG GL27T-KED GUAIFENESIN Inactive ALBUTEROL SULFATE 0.083 % NEBU SOLN one vial per nebulizer TID and PRN cough/ soa ALBUTEROL SULFATE 0.083 % NEBU SOLN 214365 ALBUTEROL SULFATE Inactive ZYPREXA 5 MG TABS take one tablet by mouth every evening ZYPREXA 5 MG TABS 492060 OLANZAPINE Inactive HYDROCODONE-ACETAMINOPHEN 5-325 MG TABS take one tablet by mouth every four hours as needed for pain HYDROCODONE-ACETAMINOPHEN 5-325 MG TABS 639738 HYDROCODONE-ACETAMINOPHEN Inactive BACTROBAN 2 % CREAM apply to ear and nose twice daily BACTROBAN 2 % CREAM 324811 MUPIROCIN CALCIUM Inactive CYCLOBENZAPRINE HCL 10 MG TABS 1/2 tablet by mouth every 8 hours as needed for muscle spasms CYCLOBENZAPRINE HCL 10 MG TABS 310629 CYCLOBENZAPRINE HCL Inactive NAVANE 10 MG CAPS 1/2 tablet twice a day NAVANE 10 MG CAPS THIOTHIXENE Inactive DOXEPIN HCL 10 MG CAPS Take 1 tablet by mouth daily DOXEPIN HCL 10 MG CAPS 8060501 DOXEPIN HCL Inactive HYDROCODONE-ACETAMINOPHEN 7.5-325 MG TABS 1 four times a day as needed for pain HYDROCODONE-ACETAMINOPHEN 7.5-325 MG TABS 773864 HYDROCODONE-ACETAMINOPHEN Inactive NIACIN CR 500 MG CR-TABS 2 qHS NIACIN CR 500 MG CR- TABS NIACIN Inactive ORPHENADRINE CITRATE ER 100 MG [id number] 1 every 12 hr. as needed ORPHENADRINE CITRATE ER 100 MG [id number] ORPHENADRINE CITRATE Inactive ACETAMINOPHEN 500 MG TABS 2 Q 6 hr. PRN ACETAMINOPHEN 500 MG TABS 694863 ACETAMINOPHEN Inactive SAPHRIS 5 MG SUBL by mouth twice a day SAPHRIS 5 MG SUBL ASENAPINE MALEATE Inactive NIACIN ER 500 MG CR-TABS 4 qHS (for triglycerides) NIACIN ER 500 MG CR-TABS NIACIN Inactive IBUPROFEN 200 MG TABS 1 Q 6 hr. PRN IBUPROFEN 200 MG TABS 440055 IBUPROFEN Inactive FLUTICASONE PROPIONATE 50 MCG/ACT SUSP 2 sprays each nostril qDay x 30 days FLUTICASONE PROPIONATE 50 MCG/ACT SUSP 587912 FLUTICASONE PROPIONATE Inactive EQL TRUETEST TEST STRP Test blood sugar TID EQL TRUETEST TEST STRP GLUCOSE BLOOD Inactive TERESE CONTOUR TEST STRP monitor blood sugars 3x/day TERESE CONTOUR TEST STRP GLUCOSE BLOOD Inactive DETROL LA 4 MG [id number] Take 1 tablet by mouth daily DETROL LA 4 MG [id number]-[id number] TOLTERODINE TARTRATE Inactive ZYPREXA 7.5 MG TABS 1 at HS ZYPREXA 7.5 MG TABS 453272 OLANZAPINE Inactive THIOTHIXENE 5 MG CAPS by mouth twice a day THIOTHIXENE 5 MG CAPS 014734 THIOTHIXENE Inactive UROXATRAL 10 MG [id number] Take 1 tablet by mouth daily UROXATRAL 10 MG [id number]-AAC ALFUZOSIN HCL Inactive ACYCLOVIR 400 MG ORAL TABS 1 pill three times daily x 5 days, for cold sore outbreak ACYCLOVIR 400 MG ORAL TABS 081905 ACYCLOVIR Inactive TRUETEST TEST STRP check sugars 4x/day TRUETEST TEST STRP GLUCOSE BLOOD Inactive HUMALOG 100 UNIT/ML SOLN Take 20 units with breakfast, 10u with lunch and suppetr. HUMALOG 100 UNIT/ML SOLN INSULIN LISPRO ( HUMAN) Inactive CYCLOBENZAPRINE HCL 10 MG TABS 1 tablet by mouth three times daily, scheduled CYCLOBENZAPRINE HCL 10 MG TABS 817178 CYCLOBENZAPRINE HCL Inactive ACCU-CHEK ROSA INVITR STRP use strips with device to check blood sugars 3 times daily ACCU-CHEK ROSA INVITR STRP GLUCOSE BLOOD Inactive ACCU-CHEK ROSA UZMA Use device to check blood sugars ACCU-CHEK ROSA UZMA BLOOD GLUCOSE MONITORING SUPPL Inactive CEFDINIR 300 MG CAPS by mouth twice a day CEFDINIR 300 MG CAPS 852242 CEFDINIR Inactive AZITHROMYCIN 500 MG SOLR 1 po q day AZITHROMYCIN 500 MG SOLR 946056 AZITHROMYCIN Inactive AMOXICILLIN 500 MG CAPS 2 po BID x 10 days AMOXICILLIN 500 MG CAPS 961608 AMOXICILLIN Inactive PENICILLIN V POTASSIUM 500 MG TABS 1 pill by mouth three times daily PENICILLIN V POTASSIUM 500 MG TABS 690327 PENICILLIN V POTASSIUM Inactive Immunizations Vaccine Administration [...] Fluvirin, Fluarix, Agriflu(>=18 yo)) Fluzone (>3 yrs.) [[id number]] Influenza, seasonal, injectable pneumococcal immunization administered Pneumovax [...] HGBA1C - Chemistry sodium, serum 130 mmol/L 246-533 1140/06/09 potassium, serum 4.0 mmol/L 3.5-5.2 chloride, serum 92 mmol/L 98-107 carbon dioxide, venous blood 22.1 mmol/L 21.0-32.0 blood glucose 60 mg/dL 65-110 calcium, serum 9.5 mg/dL 8.5-10.1 urea nitrogen, blood 14 mg/dL 7-18 creatinine, serum 1.30 mg/dL 0.60-1.30 hemoglobin A1C, blood, as % of total hemoglobin 6.0 % 4.3-6.0 sodium, serum 131 mmol/L 705-517 8539/12/30 potassium, serum 5.0 mmol/L 3.5-5.2 chloride, serum 95 mmol/L 98-107 carbon dioxide, venous blood 26.7 mmol/L 21.0-32.0 blood glucose 112 mg/dL 65-110 calcium, serum 9.2 mg/dL 8.5-10.1 urea nitrogen, blood 12 mg/dL 7-18 creatinine, serum 1.10 mg/dL 0.60-1.30 hemoglobin A1C, blood, as % of total hemoglobin 5.8 % 4.3-6.0 Lab Report: Comp. Metabolic Panel - Chemistry sodium, serum 127 mmol/L 778-816 5512/10/27 potassium, serum 4.1 mmol/L 3.5-5.2 chloride, serum [...] mg/dL Encounters Code Encounter Date Provider Facility CPT-17007 Level 3 Est. Patient 12:36:43 CDT Vanessa Hickey MD [facility]-84233 Level 3 Est. Patient 12:57:49 CDT Vanessa Hickey MD [facility]-93180 Level 3 Est. Patient 00:28:25 CDT Alina Castaneda MD [facility]-11801 Level 2 Est. Patient 12:52:14 CDT Alina Castaneda MD [facility]-89580 Level 3 Est. Patient 11:51:18 SHANK PAPERER Alina Castaneda MD [facility] CPT-07308 Level 3 Est. Patient 10:09:22 SHANK PAPERER Alina Castaneda MD [facility]-61325 Level 3 Est. Patient 14:36:26 SHANK PAPERER [facility] CPT-64107 Level 3 Est. Patient 13:34:47 SHANK PAPERER Alina Castaneda MD [facility]-66101 Level 3 Est. Patient 19:52:08 SHANK PAPERER Alina Castaneda MD [facility]-11695 Level 3 Est. Patient 10:01:51 SHANK PAPERER [facility] CPT-14897 Level 3 Est. Patient 21:54:06 CDT Vanessa Hickey MD [facility]-12736 Level 3 Est. Patient 08:54:46 CDT Alina Castaneda MD [facility]-96696 Level 3 Est. Patient 09:32:11 CDT [facility]-32041 Level 3 Est. Patient 12:02:49 CDT Alina Castaneda MD [facility]-38802 Level 3 Est. Patient 19:17:33 CDT Alina Castaneda MD [facility] [place]90480 Level 3 Est. [facility]02563 Level 3 Est. Patient 08:20:05 CDT Alina Castaneda MD [facility]-52202 Level 3 Est. Patient 15:17:18 CDT Alina Castaneda MD [facility]-91579 Level 3 Est. Patient 14:25:36 SHANK PAPERER [facility] 3 Est[facility] Patient 10:09:15 SHANK PAPERER [facility]12[facility] Level 3 Est. Patient 21:28:43 CDT Alina Castaneda MD [facility]-34441 Level 3 Est. Patient 15:20:11 CDT [facility]42298 Level 4 Est. Patient 19:08:12 CDT Alina Castaneda MD [facility]-58850 Level 3 Est. Patient 15:06:39 [facility] 4 Est. Patient 17:48:15 CDT Alina Castaneda MD [facility]-72954 Level 3 Est. Patient 14:53:49 CDT Alina Castaneda MD [facility]-72368 Level 3 Est. Patient 09:35:16 CDT Alina Castaneda MD [facility]-78111 Level 3 Est. Patient 12:23:22 CDT Alina Castaneda MD [facility]-11747 Level 3 Est. Patient 16:19:15 CDT Alina Castaneda MD [facility]-38232 Level 3 Est. Patient 21:39:56 SHANK PAPERER Alina Castaneda MD [facility]-49776 Level 4 Est. Patient 14:12:56 SHANK PAPERER Alina Castaneda MD [facility]-91830 Level 2 Est. Patient 15:34:57 SHANK PAPERER Alina Castaneda MD [facility]-57006 Level 3 Est. Patient 12:17:04 SHANK PAPERER Alina Castaneda MD [facility]-37073 Level 3 Est. Patient 09:18:18 SHANK PAPERER [facility]-01879 Level 2 Est. Patient 21:50:24 CDT Alina Castaneda MD [facility]-51010 Level 3 Est. Patient 09:17:28 CDT [facility]-36885 Level 4 Est. Patient 18:54:02 CDT Alina Castaneda MD [facility]-01356 Level 3 Est. Patient 10:47:10 CDT Alina Castaneda MD [facility]-08822 Level 3 Est. Patient 09:22:20 CDT [facility]-23477 Level 3 Est. Patient 16:39:43 CDT [facility]-45218 Level 3 Est. Patient 16:05:16 CDT Alina Castaneda MD [facility] CPT-93179 Level 3 Est. Patient 00:29:15 CDT Alina Castaneda MD [facility] CPT-40243 Level 3 Est. Patient 10:49:22 SHANK PAPERER [facility] CPT-99334 Level 3 Est. Patient 21:30:19 SHANK PAPERER Alina Castaneda MD [facility] CPT-08240 Level 4 Est. Patient 17:04:11 SHANK PAPERER [facility]-12356 Level 3 Est. Patient 15:34:11 SHANK PAPERER [facility] CPT-31650 Level 2 Est. Patient 12:51:58 SHANK PAPERER Alina Castaneda MD [facility] CPT-17770 Level 3 Est. Patient 13:20:01 SHANK PAPERER Alina Castaneda MD [facility] CPT-96347 Level 3 Est. Patient 09:23:35 CDT Alina Castaneda MD [facility] Procedures Code Procedure Name Date Entry Date Standard Description CPT-98333 Bladder Scan 12:36:44 CDT CPT-80952 Bladder Scan 21:54:06 CDT CPT-G0008 Administration of Influenza Virus Vaccine 13:05:26 CDT CPT-97287 Fluzone Quadrivalent Intramuscular Suspension 0.5 ML 13: 05:26 CDT CPT-38618 Administration single or combination vaccine inc oral 11 :49:51 CDT CPT-51203 Pneumovax 11:49:51 CDT CPT-92888 Ribs unilateral 2V 12:37:22 SHANK PAPERER CPT-72365 Chest 2V Frontal and Lat 17:15:26 CDT CPT-41076 Abx/Therapy Injection 18:54:02 CDT CPT-J0696 Rocephin 1000 mg (Ceftriaxone) 16:00:32 CDT CPT-77607 Chest 2V Frontal and Lat 15:26:45 CDT CPT-54514 Chest 2V Frontal and Lat 10:23:27 CDT CPT-34339 Venipuncture Draw Fee 10:11:00 CDT CPT-64160 Administration single or combination vaccine inc oral 11 :56:38 CDT CPT-55394 Influenza split virus > age 3 11:56:38 CDT CPT-22462 Venipuncture Draw Fee 08:49:54 SHANK PAPERER CPT-57218 EKG Trac and Interp 17:54:19 SHANK PAPERER
--- OUTSIDE RECORDS SUMMARY | 2018-07-02 17:12 | XMS REPORT | Clinical Summary ---
[...] PhD Gout, unspecified FH STROKE V17.1 Resolved Marvle MARROQUIN Family history of stroke (cerebrovascular) FATIGUE [...] Alina Castaneda MD PhD Dizziness ICD-780.4 Inactive Alian Castaneda MD PhD Confusion ICD-298.9 Inactive Alina Castaneda MD PhD Medication List Medication Instructions Start Date Stop Date Generic Name NDC Status Provider Patient Instruction HUMALOG 100 UNIT/ML SC SOLN 20u am , 10u lunch and supper INSULIN LISPRO (HUMAN) 83157108796 Active Marvel MENDOZAP Active LATUDA 120 MG ORAL TABS 1 pill by mouth nightly LURASIDONE HCL 53428115270 Active Alina Castaneda MD PhD Active COLACE 100 MG CAPS 1 pill by mouth twice daily, for constipation DOCUSATE SODIUM 33851870482 Active Alina Castaneda MD PhD Active TRUETEST TEST STRP check blood sugars 3x/day GLUCOSE BLOOD 05628210890 Active Mallashondaeh 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 CUT 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 MACHINE UNLOADER Active ACCU-CHEK ROSA UZMA Use device to check blood sugars BLOOD GLUCOSE MONITORING SUPPL 12250546236 No Longer Active Maliheh Ziglari CUT OFF MACHINE UNLOADER Active ACCU-CHEK ROSA INVITR STRP use strips with device to check blood sugars 3 times daily GLUCOSE BLOOD 55249639251 No Longer Active Mallashondaeh 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 CUT 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 INSULIN LISPRO (HUMAN) 71854732801 No Longer Active Alina Castaneda MD PhD Active TRUETEST TEST STRP check sugars 4x/day GLUCOSE BLOOD 27904952999 No Longer Active Alina Castaneda MD PhD Active MORPHINE SULFATE 30 MG TABS 1 pill by mouth twice daily, for pain MORPHINE SULFATE 62715594244 Active Mason Loredo MD Active ACYCLOVIR 400 MG ORAL TABS 1 pill three times daily x 5 days, for cold sore outbreak ACYCLOVIR 71974063649 No Longer Active Alina Castaneda MD PhD Active PENICILLIN V POTASSIUM 500 MG TABS 1 pill by mouth three times daily PENICILLIN V POTASSIUM 07367242792 No Longer Active Alina Castaneda MD PhD Active UROXATRAL 10 MG [id number] Take 1 tablet by mouth daily ALFUZOSIN HCL 81295292488 No Longer Active Alina Castaneda MD PhD Active THIOTHIXENE 5 MG CAPS by mouth twice a day THIOTHIXENE 95396073691 No Longer Active Alina Castaneda MD PhD Active ZYPREXA 7.5 MG TABS 1 at HS OLANZAPINE 71946775772 No Longer Active Alina Castaneda MD PhD Active LEVEMIR 100 UNIT/ML SOLN Take 70 u at 7-8pm INSULIN DETEMIR 38998447830 Active Marvel Mackenzieglari CUT OFF MACHINE UNLOADER Active BD INSULIN SYRINGE 28G X 1/2" 1 ML MISC 1 four times per day INSULIN SYRINGE-NEEDLE U-100 15521518610 Active Marvel Mackenzieglari CUT OFF MACHINE UNLOADER Active TOLTERODINE TARTRATE 2 MG TABS 1 pill twice daily, for bladder TOLTERODINE TARTRATE 75664457698 Active Alina Castaneda MD PhD Active DETROL LA 4 MG [id number]-HFD Take 1 tablet by mouth daily TOLTERODINE TARTRATE 90337580389 No Longer Active Alina Castaneda MD PhD Active HYDROCODONE-ACETAMINOPHEN 5-325 MG TABS 2 tabs by mouth three times daily as needed for pain HYDROCODONE-ACETAMINOPHEN 85423538405 Active Alina Castaneda MD PhD Active TERESE CONTOUR TEST STRP monitor blood sugars 3x/day GLUCOSE BLOOD 02874819973 No Longer Active Alina Castaneda MD PhD Active EQL TRUETEST TEST STRP Test blood sugar TID GLUCOSE BLOOD 09857281574 No Longer Active Alina Castaneda MD PhD Active FLUTICASONE PROPIONATE 50 MCG/ACT SUSP 2 sprays each nostril qDay x 30 days FLUTICASONE PROPIONATE 97365268209 No Longer Active Alina Castaneda MD PhD Active IBUPROFEN 200 MG TABS 1 Q 6 hr. PRN IBUPROFEN 77669459253 No Longer Active Alina Castaneda MD PhD Active NIACIN ER 500 MG CR-TABS 4 qHS (for triglycerides) NIACIN 30137703181 No Longer Active Alina Castaneda MD PhD Active ALFUZOSIN HCL ER 10 MG [id number]-HTZ 1 tablet daily ALFUZOSIN HCL 50224467749 Active Vanessa Hickey MD Active CLONAZEPAM 1 MG TABS 1 pill by mouth three times daily CLONAZEPAM 44935624359 Active Alina Castaneda MD PhD Active LOVAZA 1 GM CAPS 4 daily (for triglycerides) [id number] ETHYL ESTERS 89914885584 Active Mao Rodriguez MD Active SAPHRIS 5 MG SUBL by mouth twice a day ASENAPINE MALEATE 02722487369 No Longer Active Maljohn Ziglari CUT OFF MACHINE UNLOADER Active ACETAMINOPHEN 500 MG TABS 2 Q 6 hr. PRN ACETAMINOPHEN 37337268337 No Longer Active Maliheh Ziglari CUT OFF MACHINE UNLOADER Active ORPHENADRINE CITRATE ER 100 MG [id number] 1 every 12 hr. as needed ORPHENADRINE CITRATE 49819691868 No Longer Active Alina Castaneda MD PhD Active NIACIN CR 500 MG CR-TABS 2 qHS NIACIN 37302576301 No Longer Active Alina Castaneda MD PhD Active AMOXICILLIN 500 MG CAPS 2 po BID x 10 days AMOXICILLIN 86330017009 No Longer Active Alina Castaneda MD PhD Active HYDROCODONE-ACETAMINOPHEN 7.5-325 MG TABS 1 four times a day as needed for pain HYDROCODONE-ACETAMINOPHEN 64730788620 No Longer Active Alina Castaneda MD PhD Active METFORMIN HCL ER 500 MG [id number]-YHW Take three tablets by mouth everyday METFORMIN HCL 13807490189 Active Marvel Charles CUT OFF MACHINE UNLOADER Active DOXEPIN HCL 10 MG CAPS Take 1 tablet by mouth daily DOXEPIN HCL 03515282100 No Longer Active Salina Han [facility] Active NAVANE 10 MG CAPS 1/2 tablet twice a day THIOTHIXENE No Longer Active Salina Han [facility] Active CYCLOBENZAPRINE HCL 10 MG TABS 1/2 tablet by mouth every 8 hours as needed for muscle spasms CYCLOBENZAPRINE HCL 42815867651 No Longer Active Alina Castaneda MD PhD Active BACTROBAN 2 % CREAM apply to ear and nose twice daily MUPIROCIN CALCIUM 57834842162 No Longer Active Alina Castaneda MD PhD Active HYDROCODONE-ACETAMINOPHEN 5-325 MG TABS take one tablet by mouth every four hours as needed for pain HYDROCODONE-ACETAMINOPHEN 88020802664 No Longer Active Alina Castaneda MD PhD Active ZOLPIDEM TARTRATE 10 MG TABS take at bedtime ZOLPIDEM TARTRATE 83365542528 Active Alina Castaneda MD PhD Active ZYPREXA 5 MG TABS take one tablet by mouth every evening OLANZAPINE 50416466849 No Longer Active Alina Castaneda MD PhD Active ALBUTEROL SULFATE 0.083 % NEBU SOLN one vial per nebulizer TID and PRN cough/ soa ALBUTEROL SULFATE 36265475962 No Longer Active Alina Castaneda MD PhD Active GUAIFENESIN 600 MG [id number]-LRY 1 tablet by mouth twice daily if needed for cough GUAIFENESIN 34546678556 No Longer Active Marvel MARROQUIN Active AZITHROMYCIN 500 MG SOLR 1 po q day AZITHROMYCIN 68390212036 No Longer Active Alina Castaneda MD PhD Active METOPROLOL SUCCINATE 100 MG EZ88B-TOM 1 by mouth daily for blood pressure METOPROLOL SUCCINATE 58790485084 Active Alina Castaneda MD PhD Active PROMETHAZINE-CODEINE 6.25-10 MG/5ML SYRP 1 tsp po q 6 hours prn cough PROMETHAZINE-CODEINE 27436354327 No Longer Active Alina Castaneda MD PhD Active CEFDINIR 300 MG CAPS by mouth twice a day CEFDINIR 27299673130 No Longer Active Alina Castaneda MD PhD Active METFORMIN HCL 500 MG QU37Y-ZQW Take 3 tablets by mouth everyday METFORMIN HCL 16139088367 No Longer Active Alina Castaneda MD PhD Active LEVEMIR 100 UNIT/ML SOLN 90 units SQ qHS INSULIN DETEMIR 13350139633 No Longer Active Marvel MARROQUIN Active TOPROL XL 100 MG [id number] 1 @ HS METOPROLOL SUCCINATE 68197557188 No Longer Active Marvel MARROQUIN Active ALLOPURINOL 300 MG TABS Take one by mouth daily ALLOPURINOL 79162174239 Active Alina Castaneda MD PhD Active ZYPREXA 10 MG TABS Take one by mouth daily OLANZAPINE 24262734437 No Longer Active Alina Castaneda MD PhD Active NOVOLOG 100 UNIT/ML SOLN 40 units with every meal INSULIN ASPART 43029423761 No Longer Active Alina Castaneda MD PhD Active VERAPAMIL HCL CR 120 MG TAB CR 1 qPM VERAPAMIL HCL 45810605664 No Longer Active Salina Han RMA Active ZYPREXA 15 MG TABS Take 1 tablet by mouth daily OLANZAPINE 02287736791 No Longer Active Marvel Mackenzieanca MARROQUIN Active LISINOPRIL 20 MG TABS 1 BID LISINOPRIL 96579923703 Active Alina Castaneda MD PhD Active ALBUTEROL SULFATE (2.5 MG/3ML) 0.083% NEBU 1 neb tid and prn cough ALBUTEROL SULFATE 96494539868 No Longer Active Alina Castaneda MD PhD Active FLUVOXAMINE MALEATE 100 MG TABS Take one (1) tablet by mouth am, 1/2 at noon, 1 pm FLUVOXAMINE MALEATE 92757951692 Active Alina Castaneda MD PhD Active TRAVATAN Z 0.004 % SOLN 1 gtt each eye daily TRAVOPROST 71455033367 Active CRYSTAL Suarez Active LANTUS 100 UNIT/ML SOLN 60 units sq q hs INSULIN GLARGINE 78474690213 No Longer Active CRYSTAL Suarez Active ALBUTEROL SULFATE (2.5 MG/3ML) 0.083% NEBU 1 neb tid and prn cough ALBUTEROL SULFATE (2.5 MG/3ML) 0.083% NEBU 429219 ALBUTEROL SULFATE Inactive ZYPREXA 15 MG TABS Take 1 tablet by mouth daily ZYPREXA 15 MG TABS 161262 OLANZAPINE Inactive VERAPAMIL HCL CR 120 MG TAB CR 1 qPM VERAPAMIL HCL CR 120 MG TAB CR VERAPAMIL HCL Inactive ZYPREXA 10 MG TABS Take one by mouth daily ZYPREXA 10 MG TABS 984638 OLANZAPINE Inactive TOPROL XL 100 MG [id number] 1 @ HS TOPROL XL 100 MG SB77U-EUP METOPROLOL SUCCINATE Inactive LEVEMIR 100 UNIT/ML SOLN 90 units SQ qHS LEVEMIR 100 UNIT/ML SOLN INSULIN DETEMIR Inactive PROMETHAZINE-CODEINE 6.25-10 MG/5ML SYRP 1 tsp po q 6 hours prn cough PROMETHAZINE-CODEINE 6.25-10 MG/5ML SYRP 875223 PROMETHAZINE- CODEINE Inactive GUAIFENESIN 600 MG AX70F-MUR 1 tablet by mouth twice daily if needed for cough GUAIFENESIN 600 MG [id number] GUAIFENESIN Inactive ALBUTEROL SULFATE 0.083 % NEBU SOLN one vial per nebulizer TID and PRN cough/ soa ALBUTEROL SULFATE 0.083 % NEBU SOLN 699652 ALBUTEROL SULFATE Inactive ZYPREXA 5 MG TABS take one tablet by mouth every evening ZYPREXA 5 MG TABS 382870 OLANZAPINE Inactive HYDROCODONE-ACETAMINOPHEN 5-325 MG TABS take one tablet by mouth every four hours as needed for pain HYDROCODONE-ACETAMINOPHEN 5-325 MG TABS 101058 HYDROCODONE-ACETAMINOPHEN Inactive BACTROBAN 2 % CREAM apply to ear and nose twice daily BACTROBAN 2 % CREAM 778274 MUPIROCIN CALCIUM Inactive CYCLOBENZAPRINE HCL 10 MG TABS 1/2 tablet by mouth every 8 hours as needed for muscle spasms CYCLOBENZAPRINE HCL 10 MG TABS 904468 CYCLOBENZAPRINE HCL Inactive NAVANE 10 MG CAPS 1/2 tablet twice a day NAVANE 10 MG CAPS THIOTHIXENE Inactive DOXEPIN HCL 10 MG CAPS Take 1 tablet by mouth daily DOXEPIN HCL 10 MG CAPS 1369686 DOXEPIN HCL Inactive HYDROCODONE-ACETAMINOPHEN 7.5-325 MG TABS 1 four times a day as needed for pain HYDROCODONE-ACETAMINOPHEN 7.5-325 MG TABS 091226 HYDROCODONE-ACETAMINOPHEN Inactive NIACIN CR 500 MG CR-TABS 2 qHS NIACIN CR 500 MG CR- TABS NIACIN Inactive ORPHENADRINE CITRATE ER 100 MG [id number] 1 every 12 hr. as needed ORPHENADRINE CITRATE ER 100 MG IB73H-UHG ORPHENADRINE CITRATE Inactive ACETAMINOPHEN 500 MG TABS 2 Q 6 hr. PRN ACETAMINOPHEN 500 MG TABS 197984 ACETAMINOPHEN Inactive SAPHRIS 5 MG SUBL by mouth twice a day SAPHRIS 5 MG SUBL ASENAPINE MALEATE Inactive NIACIN ER 500 MG CR-TABS 4 qHS (for triglycerides) NIACIN ER 500 MG CR-TABS NIACIN Inactive IBUPROFEN 200 MG TABS 1 Q 6 hr. PRN IBUPROFEN 200 MG TABS 638856 IBUPROFEN Inactive FLUTICASONE PROPIONATE 50 MCG/ACT SUSP 2 sprays each nostril qDay x 30 days FLUTICASONE PROPIONATE 50 MCG/ACT SUSP 939303 FLUTICASONE PROPIONATE Inactive EQL TRUETEST TEST STRP Test blood sugar TID EQL TRUETEST TEST STRP GLUCOSE BLOOD Inactive TERESE CONTOUR TEST STRP monitor blood sugars 3x/day TERESE CONTOUR TEST STRP GLUCOSE BLOOD Inactive DETROL LA 4 MG [id number]-MER Take 1 tablet by mouth daily DETROL LA 4 MG OH67F-DHV TOLTERODINE TARTRATE Inactive ZYPREXA 7.5 MG TABS 1 at HS ZYPREXA 7.5 MG TABS 686467 OLANZAPINE Inactive THIOTHIXENE 5 MG CAPS by mouth twice a day THIOTHIXENE 5 MG CAPS 020780 THIOTHIXENE Inactive UROXATRAL 10 MG HY69K-CCA Take 1 tablet by mouth daily UROXATRAL 10 MG [id number]-JMW ALFUZOSIN HCL Inactive ACYCLOVIR 400 MG ORAL TABS 1 pill three times daily x 5 days, for cold sore outbreak ACYCLOVIR 400 MG ORAL TABS 443816 ACYCLOVIR Inactive TRUETEST TEST STRP check sugars 4x/day TRUETEST TEST STRP GLUCOSE BLOOD Inactive HUMALOG 100 UNIT/ML SOLN Take 20 units with breakfast, 10u with lunch and suppetr. HUMALOG 100 UNIT/ML SOLN INSULIN LISPRO ( HUMAN) Inactive CYCLOBENZAPRINE HCL 10 MG TABS 1 tablet by mouth three times daily, scheduled CYCLOBENZAPRINE HCL 10 MG TABS 542574 CYCLOBENZAPRINE HCL Inactive ACCU-CHEK ROSA INVITR STRP use strips with device to check blood sugars 3 times daily ACCU-CHEK ROSA INVITR STRP GLUCOSE BLOOD Inactive ACCU-CHEK ROSA UZMA Use device to check blood sugars ACCU-CHEK ROSA UZMA BLOOD GLUCOSE MONITORING SUPPL Inactive CEFDINIR 300 MG CAPS by mouth twice a day CEFDINIR 300 MG CAPS 963968 CEFDINIR Inactive AZITHROMYCIN 500 MG SOLR 1 po q day AZITHROMYCIN 500 MG SOLR 692764 AZITHROMYCIN Inactive AMOXICILLIN 500 MG CAPS 2 po BID x 10 days AMOXICILLIN 500 MG CAPS 352532 AMOXICILLIN Inactive PENICILLIN V POTASSIUM 500 MG TABS 1 pill by mouth three times daily PENICILLIN V POTASSIUM 500 MG TABS 984429 PENICILLIN V POTASSIUM Inactive Immunizations Vaccine Administration [...] Fluvirin, Fluarix, Agriflu(>=18 yo)) Fluzone (>3 yrs.) [[id number]] Influenza, seasonal, injectable pneumococcal immunization administered Pneumovax [...] HGBA1C - Chemistry sodium, serum 130 mmol/L 962-716 7453/06/09 potassium, serum 4.0 mmol/L 3.5-5.2 chloride, serum 92 mmol/L 98-107 carbon dioxide, venous blood 22.1 mmol/L 21.0-32.0 blood glucose 60 mg/dL 65-110 calcium, serum 9.5 mg/dL 8.5-10.1 urea nitrogen, blood 14 mg/dL 7-18 creatinine, serum 1.30 mg/dL 0.60-1.30 hemoglobin A1C, blood, as % of total hemoglobin 6.0 % 4.3-6.0 sodium, serum 131 mmol/L 087-928 9147/12/30 potassium, serum 5.0 mmol/L 3.5-5.2 chloride, serum 95 mmol/L 98-107 carbon dioxide, venous blood 26.7 mmol/L 21.0-32.0 blood glucose 112 mg/dL 65-110 calcium, serum 9.2 mg/dL 8.5-10.1 urea nitrogen, blood 12 mg/dL 7-18 creatinine, serum 1.10 mg/dL 0.60-1.30 hemoglobin A1C, blood, as % of total hemoglobin 5.8 % 4.3-6.0 Lab Report: Comp. Metabolic Panel - Chemistry sodium, serum 127 mmol/L 285-278 8933/10/27 potassium, serum 4.1 mmol/L 3.5-5.2 chloride, serum [...] mg/dL Encounters Code Encounter Date Provider Facility CPT-34600 Level 3 Est. Patient 09:26:40 CDT Marvel Charles [facility] CPT-18662 Level 3 Est. Patient 12:36:43 CDT Vanessa Hickey MD [facility]-34721 Level 3 Est. Patient 12:57:49 CDT Vanessa Hickey MD [facility]-25139 Level 3 Est. Patient 00:28:25 CDT Alina Castaneda MD [facility] CPT-96817 Level 2 Est. Patient 12:52:14 CDT Alina Castaneda MD PhD [facility]-80213 Level 3 Est. Patient 11:51:18 JUNIOR PROJECT MANAGER Alina Castaneda MD PhD [facility] CPT-47882 Level 3 Est. Patient 10:09:22 JUNIOR PROJECT MANAGER Alina Castaneda MD [facility] CPT-83808 Level 3 Est. Patient 14:36:26 JUNIOR PROJECT MANAGER Marvel Charles [facility]ly named [facility] CPT-44213 Level 3 Est. Patient 13:34:47 JUNIOR PROJECT MANAGER Alina Castaneda MD PhD [facility] CPT-08077 Level 3 Est. Patient 19:52:08 JUNIOR PROJECT MANAGER Alina Castaneda MD PhD [facility]-01537 Level 3 Est. Patient 10:01:51 JUNIOR PROJECT MANAGER Marvel Charles Formerly named [facility] CPT-12652 Level 3 Est. Patient 21:54:06 CDT Vanessa Hickey MD [facility]-22099 Level 3 Est. Patient 08:54:46 CDT Alina Castaneda MD [facility]-84263 Level 3 Est. Patient 09:32:11 CDT Zainnivia Araceli [facility]-34710 Level 3 Est. Patient 12:02:49 CDT Alina Castaneda MD [facility]19374 Level 3 Est. Patient 19:17:33 CDT Alina Castaneda MD [facility]11025 Level 3 Est. Patient 13:19:10 CDT Zainnivia Araceli [facility]-46604 Level 3 Est. Patient 08:20:05 CDT Alina Castaneda MD [facility]-97528 Level 3 Est. Patient 15:17:18 CDT Alina Castaneda MD [facility]54508 Level 3 Est. Patient 14:25:36 JUNIOR PROJECT MANAGER Marvel Araceli [facility]-02156 Level 3 Est. Patient 10:09:15 JUNIOR PROJECT MANAGER Marvel Araceli [facility]-93520 Level 3 Est. Patient 21:28:43 CDT Alina Castaneda MD [facility]-47957 Level 3 Est. Patient 15:20:11 CDT Marvel Charles [facility]-93673 Level 4 Est. Patient 19:08:12 CDT Alina Castaneda MD [facility]88892 Level 3 Est. Patient 15:06:39 CDT Marvel Charles [facility]-11548 Level 4 Est. Patient 17:48:15 CDT Alina Castaneda MD [facility]-88313 Level 3 Est. Patient 14:53:49 CDT Alina Castaneda MD [facility]-77151 Level 3 Est. Patient 09:35:16 CDT Alina Castaneda MD [facility]-44250 Level 3 Est. Patient 12:23:22 CDT Alina Castaneda MD [facility]-81779 Level 3 Est. Patient 16:19:15 CDT Alina Castaneda MD [facility]-56614 Level 3 Est. Patient 21:39:56 JUNIOR PROJECT MANAGER Alina Castaneda MD [facility]-05398 Level 4 Est. Patient 14:12:56 JUNIOR PROJECT MANAGER Alina Castaneda MD [facility]-51260 Level 2 Est. Patient 15:34:57 JUNIOR PROJECT MANAGER Alina Castaneda MD [facility]-30646 Level 3 Est. Patient 12:17:04 JUNIOR PROJECT MANAGER Alina Castaneda MD [facility]-71319 Level 3 Est. Patient 09:18:18 JUNIOR PROJECT MANAGER Marvel Charles [facility]-87111 Level 2 Est. Patient 21:50:24 CDT Alina Castaneda MD [facility]-77916 Level 3 Est. Patient 09:17:28 CDT Marvel Charles [facility]-71056 Level 4 Est. Patient 18:54:02 CDT Alina Castaneda MD [facility]23978 Level 3 Est. Patient 10:47:10 CDT Alina Castaneda MD [facility]-95586 Level 3 Est. Patient 09:22:20 CDT Maliheh Ziglari [facility] named [facility] CPT-02329 Level 3 Est. Patient 16:39:43 CDT Marvel Charles [facility] CPT-45343 Level 3 Est. Patient 16:05:16 CDT Alina Castaneda MD [facility] CPT-75455 Level 3 Est. Patient 00:29:15 CDT Alina Castaneda MD [facility] CPT-58108 Level 3 Est. Patient 10:49:22 JUNIOR PROJECT MANAGER Marvel Thurstonestela Formerly named [facility] CPT-94148 Level 3 Est. Patient 21:30:19 JUNIOR PROJECT MANAGER Alina Castaneda MD [facility] CPT-62427 Level 4 Est. Patient 17:04:11 JUNIOR PROJECT MANAGER [facility] CPT-88203 Level 3 Est. Patient 15:34:11 JUNIOR PROJECT MANAGER [facility] Level 2 Est. Patient 12:51:58 JUNIOR PROJECT MANAGER Alina Castaneda MD [facility] CPT-04605 Level 3 Est. Patient 13:20:01 JUNIOR PROJECT MANAGER Alina Castaneda MD [facility] CPT-31518 Level 3 Est. Patient 09:23:35 CDT Alina Castaneda MD [facility] Procedures Code Procedure Name Date Entry Date Standard Description CPT-11154 Bladder Scan 12:36:44 CDT CPT-60467 Bladder Scan 21:54:06 CDT CPT-G0008 Administration of Influenza Virus Vaccine 13:05:26 CDT CPT-98101 Fluzone Quadrivalent Intramuscular Suspension 0.5 ML 13: 05:26 CDT CPT-98129 Administration single or combination vaccine inc oral 11 :49:51 CDT CPT-45285 Pneumovax 11:49:51 CDT CPT-11144 Ribs unilateral 2V 12:37:22 JUNIOR PROJECT MANAGER CPT-27020 Chest 2V Frontal and Lat 17:15:26 CDT CPT-60561 Abx/Therapy Injection 18:54:02 CDT CPT-J0696 Rocephin 1000 mg (Ceftriaxone) 16:00:32 CDT CPT-28943 Chest 2V Frontal and Lat 15:26:45 CDT CPT-83870 Chest 2V Frontal and Lat 10:23:27 CDT CPT-26603 Venipuncture Draw Fee 10:11:00 CDT CPT-44834 Administration single or combination vaccine inc oral 11 :56:38 CDT CPT-74449 Influenza split virus > age 3 11:56:38 CDT CPT-55914 Venipuncture Draw Fee 08:49:54 JUNIOR PROJECT MANAGER CPT-21502 EKG Trac and Interp 17:54:19 JUNIOR PROJECT MANAGER
--- OUTSIDE RECORDS SUMMARY | 2018-07-02 17:14 | XMS REPORT | Clinical Summary ---
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 Benign paroxysmal positional vertigo Vertigo, benign paroxysmal position 386.11 Inactive Mima Kacey ELECTRICIAN APPRENTICE Benign paroxysmal positional vertigo High-risk sexual behavior [...] 10u lunch and supper INSULIN LISPRO (HUMAN) 87103583963 Active Marvel Araceli MARROQUIN Active LATUDA 120 MG ORAL TABS 1 pill by mouth nightly LURASIDONE HCL 25310609757 Active Alina Castaneda MD PhD Active COLACE 100 MG CAPS 1 pill by mouth twice daily, for constipation DOCUSATE SODIUM 23267952746 Active Alina Castaneda MD PhD Active TRUETEST TEST STRP check blood sugars 3x/day GLUCOSE BLOOD 87405835841 Active Malnivia 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 [employer]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 Active ACCU-CHEK ROSA UZMA Use device to check blood sugars BLOOD GLUCOSE MONITORING SUPPL 57810671768 No Longer Active Marvel 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 [employer] Active ACCU-CHEK ROSA INVITR STRP use strips with device to check blood sugars 3 times daily GLUCOSE BLOOD 75118705371 No Longer Active Brooksnivia Araceli MENDOZAP Active VERAPAMIL HCL ER 180 MG ORAL CR-TABS 1 pill by mouth twice daily, for migraine prevention VERAPAMIL HCL 22697726441 Active Alina Castaneda MD PhD Active CYCLOBENZAPRINE HCL 10 MG TABS 1 tablet by mouth three times daily, scheduled CYCLOBENZAPRINE HCL 26128341422 No Longer Active Alina Castaneda MD PhD Active HUMALOG 100 UNIT/ML SOLN Take 20 units with breakfast, 10u with lunch and suppetr. INSULIN LISPRO (HUMAN) 50926180864 No Longer Active Alina Castaneda MD PhD Active TRUETEST TEST STRP check sugars 4x/day GLUCOSE BLOOD 09238851313 No Longer Active Alina Castaneda MD PhD Active MORPHINE SULFATE 30 MG TABS 1 pill by mouth twice daily, for pain MORPHINE SULFATE 09672671097 Active Mason Loredo MD Active ACYCLOVIR 400 MG ORAL TABS 1 pill three times daily x 5 days, for cold sore outbreak ACYCLOVIR 46917363875 No Longer Active Alina Castaneda MD PhD Active PENICILLIN V POTASSIUM 500 MG TABS 1 pill by mouth three times daily PENICILLIN V POTASSIUM 77231504774 No Longer Active Alina Castaneda MD PhD Active UROXATRAL 10 MG [id number]-EDB Take 1 tablet by mouth daily ALFUZOSIN HCL 86297636374 No Longer Active Alina Castaneda MD PhD Active THIOTHIXENE 5 MG CAPS by mouth twice a day THIOTHIXENE 12094371675 No Longer Active Alina Castaneda MD PhD Active ZYPREXA 7.5 MG TABS 1 at HS OLANZAPINE 71683966131 No Longer Active Alina Castaneda MD PhD Active LEVEMIR 100 UNIT/ML SOLN Take 70 u at 7-8pm INSULIN DETEMIR 00527513000 Active Mallashondaeh Ziglari 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 [employer] Active BD INSULIN SYRINGE 28G X 1/2" 1 ML MISC 1 four times per day INSULIN SYRINGE-NEEDLE U-100 93398210521 Active Maljohn Mackenzieglari 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 [employer] Active TOLTERODINE TARTRATE 2 MG TABS 1 pill twice daily, for bladder TOLTERODINE TARTRATE 76104534448 Active Alina Castaneda MD PhD Active DETROL LA 4 MG [id number] Take 1 tablet by mouth daily TOLTERODINE TARTRATE 34738344087 No Longer Active Alina Castaneda MD PhD Active HYDROCODONE-ACETAMINOPHEN 5-325 MG TABS 2 tabs by mouth three times daily as needed for pain HYDROCODONE-ACETAMINOPHEN 31081493667 Active Alina Castaneda MD PhD Active TERESE CONTOUR TEST STRP monitor blood sugars 3x/day GLUCOSE BLOOD 47290695068 No Longer Active Alina Castaneda MD PhD Active EQL TRUETEST TEST STRP Test blood sugar TID GLUCOSE BLOOD 35465560064 No Longer Active Alina Castaneda MD PhD Active FLUTICASONE PROPIONATE 50 MCG/ACT SUSP 2 sprays each nostril qDay x 30 days FLUTICASONE PROPIONATE 21605979511 No Longer Active Alina Castaneda MD PhD Active IBUPROFEN 200 MG TABS 1 Q 6 hr. PRN IBUPROFEN 47875084130 No Longer Active Alina Castaneda MD PhD Active NIACIN ER 500 MG CR-TABS 4 qHS (for triglycerides) NIACIN 01781061032 No Longer Active Alina Castaneda MD PhD Active ALFUZOSIN HCL ER 10 MG [id number]-ZER 1 tablet daily ALFUZOSIN HCL 74398274738 Active Vanessa Hickey MD Active CLONAZEPAM 1 MG TABS 1 pill by mouth three times daily CLONAZEPAM 13666156935 Active Alina Castaneda MD PhD Active LOVAZA 1 GM CAPS 4 daily (for triglycerides) LOPJB-4-ELTT ETHYL ESTERS 19869026102 Active Alina Castaneda MD PhD Active SAPHRIS 5 MG SUBL by mouth twice a day ASENAPINE MALEATE 21443134067 No Longer Active Marvel MARROQUIN Active ACETAMINOPHEN 500 MG TABS 2 Q 6 hr. PRN ACETAMINOPHEN 52912997590 No Longer Active Marvel MARROQUIN Active ORPHENADRINE CITRATE ER 100 MG [id number]-RNY 1 every 12 hr. as needed ORPHENADRINE CITRATE 16431823227 No Longer Active Alina Castaneda MD PhD Active NIACIN CR 500 MG CR-TABS 2 qHS NIACIN 80945966408 No Longer Active Alina Castaneda MD PhD Active AMOXICILLIN 500 MG CAPS 2 po BID x 10 days AMOXICILLIN 66927020305 No Longer Active Alina Castaneda MD PhD Active HYDROCODONE-ACETAMINOPHEN 7.5-325 MG TABS 1 four times a day as needed for pain HYDROCODONE-ACETAMINOPHEN 75735567325 No Longer Active Alina Castaneda MD PhD Active METFORMIN HCL ER 500 MG [id number]-YNP Take three tablets by mouth everyday METFORMIN HCL 27699236385 Active Marvel MENDOZAP Active DOXEPIN HCL 10 MG CAPS Take 1 tablet by mouth daily DOXEPIN HCL 09872348450 No Longer Active Salina Han RMA Active NAVANE 10 MG CAPS 1/2 tablet twice a day THIOTHIXENE No Longer Active Salina Han RMA Active CYCLOBENZAPRINE HCL 10 MG TABS 1/2 tablet by mouth every 8 hours as needed for muscle spasms CYCLOBENZAPRINE HCL 61534227785 No Longer Active Alina Castaneda MD PhD Active BACTROBAN 2 % CREAM apply to ear and nose twice daily MUPIROCIN CALCIUM 04556109394 No Longer Active Alina Castaneda MD PhD Active HYDROCODONE-ACETAMINOPHEN 5-325 MG TABS take one tablet by mouth every four hours as needed for pain HYDROCODONE-ACETAMINOPHEN 60643070770 No Longer Active Alina Castaneda MD PhD Active ZOLPIDEM TARTRATE 10 MG TABS take at bedtime ZOLPIDEM TARTRATE 36316007944 Active Alina Castaneda MD PhD Active ZYPREXA 5 MG TABS take one tablet by mouth every evening OLANZAPINE 29665218860 No Longer Active Alina Castaneda MD PhD Active ALBUTEROL SULFATE 0.083 % NEBU SOLN one vial per nebulizer TID and PRN cough/ soa ALBUTEROL SULFATE 76832356542 No Longer Active Alina Castaneda MD PhD Active GUAIFENESIN 600 MG PG85S-XEK 1 tablet by mouth twice daily if needed for cough GUAIFENESIN 62420749217 No Longer Active Marvel MENDOZAP Active AZITHROMYCIN 500 MG SOLR 1 po q day AZITHROMYCIN 76448141944 No Longer Active Alina Castaneda MD PhD Active METOPROLOL SUCCINATE 100 MG JP74F-CMO 1 by mouth daily for blood pressure METOPROLOL SUCCINATE 90998629247 Active Alina Castaneda MD PhD Active PROMETHAZINE-CODEINE 6.25-10 MG/5ML SYRP 1 tsp po q 6 hours prn cough PROMETHAZINE-CODEINE 28917072615 No Longer Active Alina Castaneda MD PhD Active CEFDINIR 300 MG CAPS by mouth twice a day CEFDINIR 14429744848 No Longer Active Alina Castaneda MD PhD Active METFORMIN HCL 500 MG DO68T-FRL Take 3 tablets by mouth everyday METFORMIN HCL 24669573170 No Longer Active Alina Castaneda MD PhD Active LEVEMIR 100 UNIT/ML SOLN 90 units SQ qHS INSULIN DETEMIR 60684433141 No Longer Active Marvel MARROQUIN Active TOPROL XL 100 MG SD02Q-QSK 1 @ HS METOPROLOL SUCCINATE 42005464911 No Longer Active Mravel MARROQUIN Active ALLOPURINOL 300 MG TABS Take one by mouth daily ALLOPURINOL 14189744524 Active Alina Castaneda MD PhD Active ZYPREXA 10 MG TABS Take one by mouth daily OLANZAPINE 26800629650 No Longer Active Alina Castaneda MD PhD Active NOVOLOG 100 UNIT/ML SOLN 40 units with every meal INSULIN ASPART 38914386417 No Longer Active Alina Castaneda MD PhD Active VERAPAMIL HCL CR 120 MG TAB CR 1 qPM VERAPAMIL HCL 54622753772 No Longer Active Salina Han A Active ZYPREXA 15 MG TABS Take 1 tablet by mouth daily OLANZAPINE 28732840326 No Longer Active Brooksjohn MARROQUIN Active LISINOPRIL 20 MG TABS 1 BID LISINOPRIL 12918961261 Active Alina Castaneda MD PhD Active ALBUTEROL SULFATE (2.5 MG/3ML) 0.083% NEBU 1 neb tid and prn cough ALBUTEROL SULFATE 64523054760 No Longer Active Alina Castaneda MD PhD Active FLUVOXAMINE MALEATE 100 MG TABS Take one (1) tablet by mouth am, 1/2 at noon, 1 pm FLUVOXAMINE MALEATE 52524870730 Active Alina Castaneda MD PhD Active TRAVATAN Z 0.004 % SOLN 1 gtt each eye daily TRAVOPROST 29577259959 Active CRYSTAL Suarez Active LANTUS 100 UNIT/ML SOLN 60 units sq q hs INSULIN GLARGINE 36141427498 No Longer Active CRYSTAL Suarez Active ALBUTEROL SULFATE (2.5 MG/3ML) 0.083% NEBU 1 neb tid and prn cough ALBUTEROL SULFATE (2.5 MG/3ML) 0.083% NEBU 264227 ALBUTEROL SULFATE Inactive ZYPREXA 15 MG TABS Take 1 tablet by mouth daily ZYPREXA 15 MG TABS 991794 OLANZAPINE Inactive VERAPAMIL HCL CR 120 MG TAB CR 1 qPM VERAPAMIL HCL CR 120 MG TAB CR VERAPAMIL HCL Inactive ZYPREXA 10 MG TABS Take one by mouth daily ZYPREXA 10 MG TABS 594813 OLANZAPINE Inactive TOPROL XL 100 MG [id number] 1 @ HS TOPROL XL 100 MG [id number]-LXW METOPROLOL SUCCINATE Inactive LEVEMIR 100 UNIT/ML SOLN 90 units SQ qHS LEVEMIR 100 UNIT/ML SOLN INSULIN DETEMIR Inactive PROMETHAZINE-CODEINE 6.25-10 MG/5ML SYRP 1 tsp po q 6 hours prn cough PROMETHAZINE-CODEINE 6.25-10 MG/5ML SYRP 861070 PROMETHAZINE- CODEINE Inactive GUAIFENESIN 600 MG GJ96L-AJN 1 tablet by mouth twice daily if needed for cough GUAIFENESIN 600 MG PG08Q-GUZ GUAIFENESIN Inactive ALBUTEROL SULFATE 0.083 % NEBU SOLN one vial per nebulizer TID and PRN cough/ soa ALBUTEROL SULFATE 0.083 % NEBU SOLN 696992 ALBUTEROL SULFATE Inactive ZYPREXA 5 MG TABS take one tablet by mouth every evening ZYPREXA 5 MG TABS 309136 OLANZAPINE Inactive HYDROCODONE-ACETAMINOPHEN 5-325 MG TABS take one tablet by mouth every four hours as needed for pain HYDROCODONE-ACETAMINOPHEN 5-325 MG TABS 824073 HYDROCODONE-ACETAMINOPHEN Inactive BACTROBAN 2 % CREAM apply to ear and nose twice daily BACTROBAN 2 % CREAM 759181 MUPIROCIN CALCIUM Inactive CYCLOBENZAPRINE HCL 10 MG TABS 1/2 tablet by mouth every 8 hours as needed for muscle spasms CYCLOBENZAPRINE HCL 10 MG TABS 478433 CYCLOBENZAPRINE HCL Inactive NAVANE 10 MG CAPS 1/2 tablet twice a day NAVANE 10 MG CAPS THIOTHIXENE Inactive DOXEPIN HCL 10 MG CAPS Take 1 tablet by mouth daily DOXEPIN HCL 10 MG CAPS 9746652 DOXEPIN HCL Inactive HYDROCODONE-ACETAMINOPHEN 7.5-325 MG TABS 1 four times a day as needed for pain HYDROCODONE-ACETAMINOPHEN 7.5-325 MG TABS 662590 HYDROCODONE-ACETAMINOPHEN Inactive NIACIN CR 500 MG CR-TABS 2 qHS NIACIN CR 500 MG CR- TABS NIACIN Inactive ORPHENADRINE CITRATE ER 100 MG [id number]-ORK 1 every 12 hr. as needed ORPHENADRINE CITRATE ER 100 MG [id number]-SWT ORPHENADRINE CITRATE Inactive ACETAMINOPHEN 500 MG TABS 2 Q 6 hr. PRN ACETAMINOPHEN 500 MG TABS 721465 ACETAMINOPHEN Inactive SAPHRIS 5 MG SUBL by mouth twice a day SAPHRIS 5 MG SUBL ASENAPINE MALEATE Inactive NIACIN ER 500 MG CR-TABS 4 qHS (for triglycerides) NIACIN ER 500 MG CR-TABS NIACIN Inactive IBUPROFEN 200 MG TABS 1 Q 6 hr. PRN IBUPROFEN 200 MG TABS 770290 IBUPROFEN Inactive FLUTICASONE PROPIONATE 50 MCG/ACT SUSP 2 sprays each nostril qDay x 30 days FLUTICASONE PROPIONATE 50 MCG/ACT SUSP 237523 FLUTICASONE PROPIONATE Inactive EQL TRUETEST TEST STRP Test blood sugar TID EQL TRUETEST TEST STRP GLUCOSE BLOOD Inactive TERESE CONTOUR TEST STRP monitor blood sugars 3x/day TERESE CONTOUR TEST STRP GLUCOSE BLOOD Inactive DETROL LA 4 MG PF43T-QKY Take 1 tablet by mouth daily DETROL LA 4 MG [id number]-THB TOLTERODINE TARTRATE Inactive ZYPREXA 7.5 MG TABS 1 at HS ZYPREXA 7.5 MG TABS 897857 OLANZAPINE Inactive THIOTHIXENE 5 MG CAPS by mouth twice a day THIOTHIXENE 5 MG CAPS 576303 THIOTHIXENE Inactive UROXATRAL 10 MG PQ06Y-SZW Take 1 tablet by mouth daily UROXATRAL 10 MG ZV85R-JBX ALFUZOSIN HCL Inactive ACYCLOVIR 400 MG ORAL TABS 1 pill three times daily x 5 days, for cold sore outbreak ACYCLOVIR 400 MG ORAL TABS 373094 ACYCLOVIR Inactive TRUETEST TEST STRP check sugars 4x/day TRUETEST TEST STRP GLUCOSE BLOOD Inactive HUMALOG 100 UNIT/ML SOLN Take 20 units with breakfast, 10u with lunch and suppetr. HUMALOG 100 UNIT/ML SOLN INSULIN LISPRO ( HUMAN) Inactive CYCLOBENZAPRINE HCL 10 MG TABS 1 tablet by mouth three times daily, scheduled CYCLOBENZAPRINE HCL 10 MG TABS 973293 CYCLOBENZAPRINE HCL Inactive ACCU-CHEK ROSA INVITR STRP use strips with device to check blood sugars 3 times daily ACCU-CHEK ROSA INVITR STRP GLUCOSE BLOOD Inactive ACCU-CHEK ROSA UZMA Use device to check blood sugars ACCU-CHEK ROSA UZMA BLOOD GLUCOSE MONITORING SUPPL Inactive CEFDINIR 300 MG CAPS by mouth twice a day CEFDINIR 300 MG CAPS 843608 CEFDINIR Inactive AZITHROMYCIN 500 MG SOLR 1 po q day AZITHROMYCIN 500 MG SOLR 523538 AZITHROMYCIN Inactive AMOXICILLIN 500 MG CAPS 2 po BID x 10 days AMOXICILLIN 500 MG CAPS 334125 AMOXICILLIN Inactive PENICILLIN V POTASSIUM 500 MG TABS 1 pill by mouth three times daily PENICILLIN V POTASSIUM 500 MG TABS 205899 PENICILLIN V POTASSIUM Inactive Immunizations Vaccine Administration [...] Fluvirin, Fluarix, Agriflu(>=18 yo)) Fluzone (>3 yrs.) [[id number]] Influenza, seasonal, injectable pneumococcal immunization administered Pneumovax [...] HGBA1C - Chemistry sodium, serum 131 mmol/L 789-558 0650/12/30 potassium, serum 5.0 mmol/L 3.5-5.2 chloride, serum 95 mmol/L 98-107 carbon dioxide, venous blood 26.7 mmol/L 21.0-32.0 blood glucose 112 mg/dL 65-110 calcium, serum 9.2 mg/dL 8.5-10.1 urea nitrogen, blood 12 mg/dL 7-18 creatinine, serum 1.10 mg/dL 0.60-1.30 hemoglobin A1C, blood, as % of total hemoglobin 5.8 % 4.3-6.0 Lab Report: Basic Metabolic Panel, HGBA1C, MICROALBUMIN - Chemistry sodium, serum 137 mmol/L 387-163 3525/05/19 potassium, serum 5.2 mmol/L 3.5-5.2 chloride, serum [...] microalbumin, urine 10 0-19 Lab Report: Chlamydia/GC APTIMA/56894, HIV-1/2 Agn/Dominga/99027, RPR (DX) W ... - Chemistry hepatitis B surface antigen NON-REACTIVE NON-REACTIVE Lab Report: Chlamydia/GC APTIMA/10641, HIV-1/2 Agn/Dominga/33374, RPR (DX) W ... - Lab chlamydia DNA probe NOT DETECTED NOT DETECTED Lab Report: Chlamydia/GC APTIMA/04728, HIV-1/2 Agn/Dominga/65175, RPR (DX) W ... - Microbiology Neisseria gonorrhoeae DNA probe NOT DETECTED NOT DETECTED Lab Report: Chlamydia/GC APTIMA/95672, HIV-1/2 Agn/Dominga/19477, RPR (DX) W ... - Serology rapid plasma reagin antibody titer NON-REACTIVE NON-REACTIVE Lab Report: Comp. Metabolic Panel - Chemistry sodium, serum 127 mmol/L 971-164 9434/10/27 potassium, serum 4.1 mmol/L 3.5-5.2 chloride, serum [...] CBC - Chemistry cholesterol, serum 131 mg/dL 303-664 9124/06/03 triglyceride, serum, fasting 383 mg/dL 30-200 HDL [...] mg/dL Encounters Code Encounter Date Provider Facility CPT-11590 Level 3 Est. Patient 09:34:56 CDT Alina Castaneda MD [facility] CPT-33576 Level 3 Est. Patient 21:40:19 CDT Mima Erazo APRN [facility] CPT-72831 Level 3 Est. Patient 09:26:40 CDT Marvel MARROQUIN [facility] CPT-82997 Level 3 Est. Patient 12:36:43 CDT Vanessa Hickey MD [facility] CPT-86419 Level 3 Est. Patient 12:57:49 CDT Vanessa Hickey MD [facility] CPT-84706 Level 3 Est. Patient 00:28:25 CDT Alina Castaneda MD [facility] CPT-94950 Level 2 Est. Patient 12:52:14 CDT Alina Castaneda MD [facility] CPT-40796 Level 3 Est. Patient 11:51:18 TERMITE CONTROL TECHNICIAN Alnia Castaneda MD [facility] CPT-21097 Level 3 Est. Patient 10:09:22 TERMITE CONTROL TECHNICIAN Alina Castaneda MD [facility] CPT-36611 Level 3 Est. Patient 14:36:26 TERMITE CONTROL TECHNICIAN Marvel Araceli [facility]-75293 Level 3 Est. Patient 13:34:47 TERMITE CONTROL TECHNICIAN Alina Castaneda MD [facility]-37360 Level 3 Est. Patient 19:52:08 TERMITE CONTROL TECHNICIAN Alina Castaneda MD [facility]93581 Level 3 Est. Patient 10:01:51 TERMITE CONTROL TECHNICIAN Marvel Thurstonestela [facility]-57663 Level 3 Est. Patient 21:54:06 CDT Vanessa Hickey MD [facility]-68642 Level 3 Est. Patient 08:54:46 CDT Alina Castaneda MD [facility]79481 Level 3 Est. Patient 09:32:11 CDT Brookslashondanivia Araceli [facility]-64468 Level 3 Est. Patient 12:02:49 CDT Alina Castaneda MD [facility]-53763 Level 3 Est. Patient 19:17:33 CDT Alina Castaneda MD [facility]49733 Level 3 Est. Patient 13:19:10 CDT Brooksjohn Charles [facility]-29917 Level 3 Est. Patient 08:20:05 CDT Alina Castaneda MD [facility]15326 Level 3 Est. Patient 15:17:18 CDT Alina Castaneda MD [facility]51604 Level 3 Est. Patient 14:25:36 TERMITE CONTROL TECHNICIAN Marvel Araceli [facility]-80488 Level 3 Est. Patient 10:09:15 TERMITE CONTROL TECHNICIAN Marvel Araceli [facility]36783 Level 3 Est. Patient 21:28:43 CDT Alina Castaneda MD [facility]-59532 Level 3 Est. Patient 15:20:11 CDT Marvel Charles [facility]-77431 Level 4 Est. Patient 19:08:12 CDT Alina Castaneda MD [facility]-20966 Level 3 Est. Patient 15:06:39 CDT Marvel Charles [facility]-98646 Level 4 Est. Patient 17:48:15 CDT Alina Castaneda MD [facility]-58233 Level 3 Est. Patient 14:53:49 CDT Alina Castaneda MD [facility]-80721 Level 3 Est. Patient 09:35:16 CDT Alina Castaneda MD [facility]-68231 Level 3 Est. Patient 12:23:22 CDT Alina Castaneda MD [facility]-19827 Level 3 Est. Patient 16:19:15 CDT Alina Castaneda MD [facility]-98773 Level 3 Est. Patient 21:39:56 TERMITE CONTROL TECHNICIAN Alina Castaneda MD [facility]-22401 Level 4 Est. Patient 14:12:56 TERMITE CONTROL TECHNICIAN Alina Castaneda MD [facility]-92386 Level 2 Est. Patient 15:34:57 TERMITE CONTROL TECHNICIAN Alina Castaneda MD [facility]-56329 Level 3 Est. Patient 12:17:04 TERMITE CONTROL TECHNICIAN Alina Castaneda MD [facility]-83804 Level 3 Est. Patient 09:18:18 TERMITE CONTROL TECHNICIAN Marvel Charles [facility]-53783 Level 2 Est. Patient 21:50:24 CDT Alina Castaneda MD [facility]-50340 Level 3 Est. Patient 09:17:28 CDT Marvel Charles [facility]-04156 Level 4 Est. Patient 18:54:02 CDT Alina Castaneda MD [facility]13304 Level 3 Est. Patient 10:47:10 CDT Alina Castaneda MD [facility]26367 Level 3 Est. Patient 09:22:20 CDT Marvel Charles [facility]-21594 Level 3 Est. Patient 16:39:43 CDT Marvel Charles [facility]-67850 Level 3 Est. Patient 16:05:16 CDT Alina Castaneda MD [facility]16241 Level 3 Est. Patient 00:29:15 CDT Alina Casatneda MD [facility]02505 Level 3 Est. Patient 10:49:22 TERMITE CONTROL TECHNICIAN Marvel Charles [facility]-83718 Level 3 Est. Patient 21:30:19 TERMITE CONTROL TECHNICIAN Alina Castaneda MD [facility]-83086 Level 4 Est. Patient 17:04:11 TERMITE CONTROL TECHNICIAN Marvel Charles [facility]-89891 Level 3 Est. Patient 15:34:11 TERMITE CONTROL TECHNICIAN Marvel Charles [facility]-90908 Level 2 Est. Patient 12:51:58 TERMITE CONTROL TECHNICIAN Alina Castaneda MD [facility]81648 Level 3 Est. Patient 13:20:01 TERMITE CONTROL TECHNICIAN Alina Castaneda MD [facility]73226 Level 3 Est. Patient 09:23:35 CDT Alina Castaneda MD PhD [facility] Procedures Code Procedure Name Date Entry Date Standard Description CPT-23042 Bladder Scan 12:36:44 CDT CPT-73764 Bladder Scan 21:54:06 CDT CPT-G0008 Administration of Influenza Virus Vaccine 13:05:26 CDT CPT-30229 Fluzone Quadrivalent Intramuscular Suspension 0.5 ML 13: 05:26 CDT CPT-81875 Administration single or combination vaccine inc oral 11 :49:51 CDT CPT-90438 Pneumovax 11:49:51 CDT CPT-40906 Ribs unilateral 2V 12:37:22 TERMITE CONTROL TECHNICIAN CPT-77130 Chest 2V Frontal and Lat 17:15:26 CDT CPT-31625 Abx/Therapy Injection 18:54:02 CDT CPT-J0696 Rocephin 1000 mg (Ceftriaxone) 16:00:32 CDT CPT-77585 Chest 2V Frontal and Lat 15:26:45 CDT CPT-76519 Chest 2V Frontal and Lat 10:23:27 CDT CPT-84924 Venipuncture Draw Fee 10:11:00 CDT CPT-32107 Administration single or combination vaccine inc oral 11 :56:38 CDT CPT-00712 Influenza split virus > age 3 11:56:38 CDT CPT-18032 Venipuncture Draw Fee 08:49:54 TERMITE CONTROL TECHNICIAN CPT-17200 EKG Trac and Interp 17:54:19 TERMITE CONTROL TECHNICIAN
--- OUTSIDE RECORDS SUMMARY | 2018-07-02 17:16 | XMS REPORT | Clinical Summary ---
Author Author Admin, TERELL Organization [facility] Address Unknown Phone Unavailable Allergies, Adverse Reactions, 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 Erazo REHABILITATION CLERK Benign paroxysmal positional vertigo Vertigo, benign paroxysmal position 386.11 Inactive Mima Erazo REHABILITATION CLERK Benign paroxysmal positional vertigo High-risk sexual behavior V69.2 Active Alina Castaneda MD PhD High-risk sexual behavior Erectile dysfunction 302.72 Active Alina Castaneda MD PhD Psychosexual dysfunction with inhibited sexual excitement Constipation 564.00 Active Alina Castaneda MD PhD Constipation, unspecified Skin lesion 709.9 Active Alina Castaneda MD PhD Unspecified disorder of skin and subcutaneous tissue Malaise and fatigue 780.79 Active Cherelle Speaks REHABILITATION CLERK Other malaise and fatigue Diarrhea 787.91 Active Cherelle Speaks REHABILITATION CLERK Diarrhea PHARYNGITIS 462 Active Cherelle Speaks REHABILITATION CLERK Acute pharyngitis Colitis 558.9 Active Mima Erazo REHABILITATION CLERK Other and unspecified noninfectious gastroenteritis and colitis WOUND, OPEN, NOSE ICD-873.20 Inactive Alina Castaneda MD PhD DIABETES, TYPE 2 ICD-250.00 Inactive Alina Castaneda MD PhD HYPERTENSION ICD-401.9 Inactive Alina Castaneda MD PhD URI ICD-465.9 Inactive Alina Castaneda MD PhD CHEST PAIN ICD-786.50 Inactive Alina Castaneda MD PhD FH STROKE ICD-V17.1 Inactive Marvel Charles PLANNER INTERN FATIGUE ICD-780.79 Inactive Alina Castaneda MD PhD [...] LANCETS 30G MISC 3 a day LANCETS 91862985779 Active Marvel MARROQUIN Active TOLTERODINE TARTRATE 2 MG TABS 1 pill twice daily, for bladder TOLTERODINE TARTRATE 08078104415 No Longer Active Vanessa Hickey MD Active AMITIZA 24 MCG ORAL CAPS Take one capsule BID for constipation. LUBIPROSTONE 76113042596 No Longer Active Vanessa Hickey MD Active LOMOTIL 2.5-0.025 MG ORAL TABS take 1-2 tabs PO after each stool, no more than 8 in 24 hours DIPHENOXYLATE-ATROPINE 99874025404 Active Grace ROJAS Active FLUVOXAMINE MALEATE 100 MG ORAL TABS take one tab every AM et HS, and take 1/ 2 tab at noon FLUVOXAMINE MALEATE 19029879746 Active Grace ROJAS Active METOPROLOL SUCCINATE 100 MG [id number]-CPR 1 by mouth daily for blood pressure METOPROLOL SUCCINATE 79822506803 No Longer Active Grace ROJAS Active METFORMIN HCL ER 500 MG [id number]-WXC Take three tablets by mouth everyday METFORMIN HCL 61570261944 No Longer Active Grace Azam RMA Active LOVAZA 1 GM CAPS 4 daily (for triglycerides) OMEGA-3- ACID ETHYL ESTERS 87422280208 No Longer Active Grace Azam RMA Active TRAZODONE HCL 100 MG ORAL TABS 1 tab by mouth for sleep TRAZODONE HCL 21731267997 No Longer Active Grace Azam RMA Active NOVOFINE 32G X 6 MM MISC use one four times per day INSULIN PEN NEEDLE 49872816053 No Longer Active Grace Azam RMA Active BACTROBAN 2 % CREAM Apply to affected area BID for up to 10 days MUPIROCIN CALCIUM 42037026461 No Longer Active Grace Azam RMA Active ZOFRAN 4 MG TABS 1 po q4hr PRN [place] ONDANSETRON HCL 47603762324 Active Salina Emely RMA Active KEFLEX 500 MG CAP 1 po BID x 7 days CEPHALEXIN 28678536896 No Longer Active Cherelle Felixs REHABILITATION CLERK Active FLUVOXAMINE MALEATE 100 MG TABS Take one (1) tablet by mouth am, 1/2 at noon FLUVOXAMINE MALEATE 46757321933 No Longer Active Mima Erazo APRN Active CORICIDIN HBP CONGESTION/COUGH 10-200 MG ORAL CAPS Take as directed on box as needed for cold/flu symptoms DEXTROMETHORPHAN-GUAIFENESIN 82957339073 Active Cherelle Speaks REHABILITATION CLERK Active OMEGA-3 300 MG ORAL CAPS 4 caps by mouth daily OMEGA-3 FATTY ACIDS 21782459111 Active Cherelle Speaks REHABILITATION CLERK Active FLUVOXAMINE MALEATE 100 MG ORAL TABS Take 1/2 tab at noon FLUVOXAMINE MALEATE 15143141041 No Longer Active Cherelle Speaks REHABILITATION CLERK Active [facility] LUBRICANT EYE DROPS 0.4-0.3 % OPHTH SOLN POLYETHYL GLYCOL-PROPYL GLYCOL 26260567379 Active Mima Yokum REHABILITATION CLERK Active CLONAZEPAM 1 MG TABS 1/2 pill by mouth three times daily CLONAZEPAM 55289248536 Active Alina Castaneda MD PhD Active MIRALAX POWD 17g by mouth daily, for constipation POLYETHYLENE GLYCOL 3350 54162625608 Active Alina Castaneda MD PhD Active HYDROCODONE-ACETAMINOPHEN 5-325 MG TABS 2 tabs by mouth three times daily for pain HYDROCODONE-ACETAMINOPHEN 95898165076 Active Mima Erazo REHABILITATION CLERK Active HUMALOG KWIKPEN 100 UNIT/ML SC SOPN 20 units with breakfast, 10 units with lunch, 10 units with dinner, for diabetes INSULIN LISPRO (HUMAN ) 61942043192 Active Alina Castaneda MD PhD Active LEVEMIR FLEXTOUCH 100 UNIT/ML SC SOPN 70 units SQ each evening, for diabetes INSULIN DETEMIR 03493574896 Active Alina Castaneda MD PhD Active LATUDA 120 MG ORAL TABS 1 pill by mouth nightly LURASIDONE HCL 89339015706 Active Alina Castaneda MD PhD Active COLACE 100 MG CAPS 1 pill by mouth twice daily, for constipation DOCUSATE SODIUM 90444681722 Active Alina Castaneda MD PhD Active TRUETEST TEST STRP check blood sugars 3x/day GLUCOSE BLOOD 97175782818 Active Marvel MARROQUIN Active ACCU-CHEK ROSA UZMA Use device to check blood sugars BLOOD GLUCOSE MONITORING SUPPL 33970326860 No Longer Active Marvel MARROQUIN Active ACCU-CHEK ROSA INVITR STRP use strips with device to check blood sugars 3 times daily GLUCOSE BLOOD 11409337882 No Longer Active Marvel MARROQUIN Active VERAPAMIL HCL ER 180 MG ORAL CR-TABS 1 pill by mouth twice daily, for migraine prevention VERAPAMIL HCL 04116249667 Active Alina Castaneda MD PhD Active CYCLOBENZAPRINE HCL 10 MG TABS 1 tablet by mouth three times daily, scheduled CYCLOBENZAPRINE HCL 87494775614 No Longer Active Alina Castaneda MD PhD Active HUMALOG 100 UNIT/ML SOLN Take 20 units with breakfast, 10u with lunch and suppetr. INSULIN LISPRO (HUMAN) 03113199329 No Longer Active Alina Castaneda MD PhD Active TRUETEST TEST STRP check sugars 4x/day GLUCOSE BLOOD 85736549438 No Longer Active Alina Castaneda MD PhD Active MORPHINE SULFATE 30 MG TABS 1 pill by mouth twice daily, for pain MORPHINE SULFATE 81855937178 Active Mima Erazo REHABILITATION CLERK Active ACYCLOVIR 400 MG ORAL TABS 1 pill three times daily x 5 days, for cold sore outbreak ACYCLOVIR 06390600692 No Longer Active Alina Castaneda MD PhD Active PENICILLIN V POTASSIUM 500 MG TABS 1 pill by mouth three times daily PENICILLIN V POTASSIUM 64476139900 No Longer Active Alina Castaneda MD PhD Active UROXATRAL 10 MG [id number]-PFO Take 1 tablet by mouth daily ALFUZOSIN HCL 42259654609 No Longer Active Alina Castaneda MD PhD Active THIOTHIXENE 5 MG CAPS by mouth twice a day THIOTHIXENE 99027676070 No Longer Active Alina Castaneda MD PhD Active ZYPREXA 7.5 MG TABS 1 at HS OLANZAPINE 47164327539 No Longer Active Alina Castaneda MD PhD Active BD INSULIN SYRINGE 28G X 1/2" 1 ML MISC 1 four times per day INSULIN SYRINGE-NEEDLE U-100 00044632825 Active [facility] Gurdeepglestela [facility] Active DETROL LA 4 MG [id number]-ZNN Take 1 tablet by mouth daily TOLTERODINE TARTRATE 88319300360 No Longer Active Alina Castaneda MD PhD Active TERESE CONTOUR TEST STRP monitor blood sugars 3x/day GLUCOSE BLOOD 06556532271 No Longer Active Alina Castaneda MD PhD Active EQL TRUETEST TEST STRP Test blood sugar TID GLUCOSE BLOOD 25977063750 No Longer Active Alina Castaneda MD PhD Active FLUTICASONE PROPIONATE 50 MCG/ACT SUSP 2 sprays each nostril qDay x 30 days FLUTICASONE PROPIONATE 83966032752 No Longer Active Alina Castaneda MD PhD Active IBUPROFEN 200 MG TABS 1 Q 6 hr. PRN IBUPROFEN 45853482830 No Longer Active Alina Castaneda MD PhD Active NIACIN ER 500 MG CR-TABS 4 qHS (for triglycerides) NIACIN 93534205727 No Longer Active Alina Castaneda MD PhD Active ALFUZOSIN HCL ER 10 MG [id number]-QER 1 tablet daily ALFUZOSIN HCL 42822714227 Active Vanessa Hickey MD Active SAPHRIS 5 MG SUBL by mouth twice a day ASENAPINE MALEATE 46880541195 No Longer Active Mallashondaeh Ziglari PLANNER INTERN Active ACETAMINOPHEN 500 MG TABS 2 Q 6 hr. PRN ACETAMINOPHEN 98447875088 No Longer Active Maliheh Ziglari PLANNER INTERN Active ORPHENADRINE CITRATE ER 100 MG CB86B-JVC 1 every 12 hr. as needed ORPHENADRINE CITRATE 43214102939 No Longer Active Alina Castaneda MD PhD Active NIACIN CR 500 MG CR-TABS 2 qHS NIACIN 38212536626 No Longer Active Alina Castaneda MD PhD Active AMOXICILLIN 500 MG CAPS 2 po BID x 10 days AMOXICILLIN 43519845234 No Longer Active Alina Castaneda MD PhD Active HYDROCODONE-ACETAMINOPHEN 7.5-325 MG TABS 1 four times a day as needed for pain HYDROCODONE-ACETAMINOPHEN 69802347076 No Longer Active Alina Castaneda MD PhD Active DOXEPIN HCL 10 MG CAPS Take 1 tablet by mouth daily DOXEPIN HCL 55118033912 No Longer Active Salina ROJAS Active NAVANE 10 MG CAPS 1/2 tablet twice a day THIOTHIXENE No Longer Active Salina ROJAS Active CYCLOBENZAPRINE HCL 10 MG TABS 1/2 tablet by mouth every 8 hours as needed for muscle spasms CYCLOBENZAPRINE HCL 83196565423 No Longer Active Alina Castaneda MD PhD Active BACTROBAN 2 % CREAM apply to ear and nose twice daily MUPIROCIN CALCIUM 90016521610 No Longer Active Alina Castaneda MD PhD Active HYDROCODONE-ACETAMINOPHEN 5-325 MG TABS take one tablet by mouth every four hours as needed for pain HYDROCODONE-ACETAMINOPHEN 89355360359 No Longer Active Alina Castaneda MD PhD Active ZOLPIDEM TARTRATE 10 MG TABS take at bedtime ZOLPIDEM TARTRATE 02297497489 Active Alina Castaneda MD PhD Active ZYPREXA 5 MG TABS take one tablet by mouth every evening OLANZAPINE 49753134475 No Longer Active Alina Castaneda MD PhD Active ALBUTEROL SULFATE 0.083 % NEBU SOLN one vial per nebulizer TID and PRN cough/ soa ALBUTEROL SULFATE 84850098891 No Longer Active Alina Castaneda MD PhD Active GUAIFENESIN 600 MG DZ64M-HQS 1 tablet by mouth twice daily if needed for cough GUAIFENESIN 65751552838 No Longer Active Marvel MARROQUIN Active AZITHROMYCIN 500 MG SOLR 1 po q day AZITHROMYCIN 44173264609 No Longer Active Alina Castaneda MD PhD Active PROMETHAZINE-CODEINE 6.25-10 MG/5ML SYRP 1 tsp po q 6 hours prn cough PROMETHAZINE-CODEINE 43617210219 No Longer Active Alina Castaneda MD PhD Active CEFDINIR 300 MG CAPS by mouth twice a day CEFDINIR 59872760851 No Longer Active Alina Castaneda MD PhD Active METFORMIN HCL 500 MG [id number]-WOP Take 3 tablets by mouth everyday METFORMIN HCL 71308939250 No Longer Active Alina Castaneda MD PhD Active LEVEMIR 100 UNIT/ML SOLN 90 units SQ qHS INSULIN DETEMIR 41093875040 No Longer Active Marvel MARROQUIN Active TOPROL XL 100 MG [id number]-MSW 1 @ HS METOPROLOL SUCCINATE 47767093096 No Longer Active Marvel MARROQUIN Active ALLOPURINOL 300 MG TABS Take one by mouth daily ALLOPURINOL 59911206670 Active Alina Castaneda MD PhD Active ZYPREXA 10 MG TABS Take one by mouth daily OLANZAPINE 93676685368 No Longer Active Alina Castaneda MD PhD Active NOVOLOG 100 UNIT/ML SOLN 40 units with every meal INSULIN ASPART 89636473540 No Longer Active Alina Castaneda MD PhD Active VERAPAMIL HCL CR 120 MG TAB CR 1 qPM VERAPAMIL HCL 07089978503 No Longer Active Salina ROJAS Active ZYPREXA 15 MG TABS Take 1 tablet by mouth daily OLANZAPINE 80136563187 No Longer Active Marvel MARROQUIN Active LISINOPRIL 20 MG TABS 1 BID LISINOPRIL 68864311981 Active Alina Castaneda MD PhD Active ALBUTEROL SULFATE (2.5 MG/3ML) 0.083% NEBU 1 neb tid and prn cough ALBUTEROL SULFATE 53047417321 No Longer Active Alina Castaneda MD PhD Active TRAVATAN Z 0.004 % SOLN 1 gtt each eye daily TRAVOPROST 81660577916 Active CRYSTAL Suarez Active LANTUS 100 UNIT/ML SOLN 60 units sq q hs INSULIN GLARGINE 16139118036 No Longer Active CRYSTAL Suarez Active ALBUTEROL SULFATE (2.5 MG/3ML) 0.083% NEBU 1 neb tid and prn cough ALBUTEROL SULFATE (2.5 MG/3ML) 0.083% NEBU 921818 ALBUTEROL SULFATE Inactive ZYPREXA 15 MG TABS Take 1 tablet by mouth daily ZYPREXA 15 MG TABS 092237 OLANZAPINE Inactive VERAPAMIL HCL CR 120 MG TAB CR 1 qPM VERAPAMIL HCL CR 120 MG TAB CR VERAPAMIL HCL Inactive ZYPREXA 10 MG TABS Take one by mouth daily ZYPREXA 10 MG TABS 891384 OLANZAPINE Inactive TOPROL XL 100 MG [id number]-CSS 1 @ HS TOPROL XL 100 MG HV76Y-FUU METOPROLOL SUCCINATE Inactive LEVEMIR 100 UNIT/ML SOLN 90 units SQ qHS LEVEMIR 100 UNIT/ML SOLN INSULIN DETEMIR Inactive PROMETHAZINE-CODEINE 6.25-10 MG/5ML SYRP 1 tsp po q 6 hours prn cough PROMETHAZINE-CODEINE 6.25-10 MG/5ML SYRP 201341 PROMETHAZINE- CODEINE Inactive GUAIFENESIN 600 MG [id number]-MSN 1 tablet by mouth twice daily if needed for cough GUAIFENESIN 600 MG [id number]-QCU GUAIFENESIN Inactive ALBUTEROL SULFATE 0.083 % NEBU SOLN one vial per nebulizer TID and PRN cough/ soa ALBUTEROL SULFATE 0.083 % NEBU SOLN 179996 ALBUTEROL SULFATE Inactive ZYPREXA 5 MG TABS take one tablet by mouth every evening ZYPREXA 5 MG TABS 019537 OLANZAPINE Inactive HYDROCODONE-ACETAMINOPHEN 5-325 MG TABS take one tablet by mouth every four hours as needed for pain HYDROCODONE-ACETAMINOPHEN 5-325 MG TABS 544632 HYDROCODONE-ACETAMINOPHEN Inactive BACTROBAN 2 % CREAM apply to ear and nose twice daily BACTROBAN 2 % CREAM 997433 MUPIROCIN CALCIUM Inactive CYCLOBENZAPRINE HCL 10 MG TABS 1/2 tablet by mouth every 8 hours as needed for muscle spasms CYCLOBENZAPRINE HCL 10 MG TABS 020601 CYCLOBENZAPRINE HCL Inactive NAVANE 10 MG CAPS 1/2 tablet twice a day NAVANE 10 MG CAPS THIOTHIXENE Inactive DOXEPIN HCL 10 MG CAPS Take 1 tablet by mouth daily DOXEPIN HCL 10 MG CAPS 6279326 DOXEPIN HCL Inactive HYDROCODONE-ACETAMINOPHEN 7.5-325 MG TABS 1 four times a day as needed for pain HYDROCODONE-ACETAMINOPHEN 7.5-325 MG TABS 314295 HYDROCODONE-ACETAMINOPHEN Inactive NIACIN CR 500 MG CR-TABS 2 qHS NIACIN CR 500 MG CR- TABS NIACIN Inactive ORPHENADRINE CITRATE ER 100 MG [id number]-RJG 1 every 12 hr. as needed ORPHENADRINE CITRATE ER 100 MG GH22S-OCC ORPHENADRINE CITRATE Inactive ACETAMINOPHEN 500 MG TABS 2 Q 6 hr. PRN ACETAMINOPHEN 500 MG TABS 547535 ACETAMINOPHEN Inactive SAPHRIS 5 MG SUBL by mouth twice a day SAPHRIS 5 MG SUBL ASENAPINE MALEATE Inactive NIACIN ER 500 MG CR-TABS 4 qHS (for triglycerides) NIACIN ER 500 MG CR-TABS NIACIN Inactive IBUPROFEN 200 MG TABS 1 Q 6 hr. PRN IBUPROFEN 200 MG TABS 162795 IBUPROFEN Inactive FLUTICASONE PROPIONATE 50 MCG/ACT SUSP 2 sprays each nostril qDay x 30 days FLUTICASONE PROPIONATE 50 MCG/ACT SUSP 604290 FLUTICASONE PROPIONATE Inactive EQL TRUETEST TEST STRP Test blood sugar TID EQL TRUETEST TEST STRP GLUCOSE BLOOD Inactive TERESE CONTOUR TEST STRP monitor blood sugars 3x/day TERESE CONTOUR TEST STRP GLUCOSE BLOOD Inactive DETROL LA 4 MG [id number] Take 1 tablet by mouth daily DETROL LA 4 MG [id number]-LBW TOLTERODINE TARTRATE Inactive ZYPREXA 7.5 MG TABS 1 at HS ZYPREXA 7.5 MG TABS 574140 OLANZAPINE Inactive THIOTHIXENE 5 MG CAPS by mouth twice a day THIOTHIXENE 5 MG CAPS 813342 THIOTHIXENE Inactive UROXATRAL 10 MG IE00Y-NZE Take 1 tablet by mouth daily UROXATRAL 10 MG AS00P-BJP ALFUZOSIN HCL Inactive ACYCLOVIR 400 MG ORAL TABS 1 pill three times daily x 5 days, for cold sore outbreak ACYCLOVIR 400 MG ORAL TABS 156618 ACYCLOVIR Inactive TRUETEST TEST STRP check sugars 4x/day TRUETEST TEST STRP GLUCOSE BLOOD Inactive HUMALOG 100 UNIT/ML SOLN Take 20 units with breakfast, 10u with lunch and suppetr. HUMALOG 100 UNIT/ML SOLN INSULIN LISPRO ( HUMAN) Inactive CYCLOBENZAPRINE HCL 10 MG TABS 1 tablet by mouth three times daily, scheduled CYCLOBENZAPRINE HCL 10 MG TABS 868576 CYCLOBENZAPRINE HCL Inactive ACCU-CHEK ROSA INVITR STRP use strips with device to check blood sugars 3 times daily ACCU-CHEK ROSA INVITR STRP GLUCOSE BLOOD Inactive ACCU-CHEK ROSA UZMA Use device to check blood sugars ACCU-CHEK ROSA UZMA BLOOD GLUCOSE MONITORING SUPPL Inactive FLUVOXAMINE MALEATE 100 MG ORAL TABS Take 1/2 tab at noon FLUVOXAMINE MALEATE 100 MG ORAL TABS 309918 FLUVOXAMINE MALEATE Inactive FLUVOXAMINE MALEATE 100 MG TABS Take one (1) tablet by mouth am, 1/2 at noon FLUVOXAMINE MALEATE 100 MG TABS 997809 FLUVOXAMINE MALEATE Inactive BACTROBAN 2 % CREAM Apply to affected area BID for up to 10 days BACTROBAN 2 % CREAM 044020 MUPIROCIN CALCIUM Inactive NOVOFINE 32G X 6 MM MISC use one four times per day NOVOFINE 32G X 6 MM MISC INSULIN PEN NEEDLE Inactive TRAZODONE HCL 100 MG ORAL TABS 1 tab by mouth for sleep TRAZODONE HCL 100 MG ORAL TABS 984020 TRAZODONE HCL Inactive LOVAZA 1 GM CAPS 4 daily (for triglycerides) LOVAZA 1 GM CAPS 198049 [id number]-[id number] ETHYL ESTERS Inactive METFORMIN HCL ER 500 MG LU83K-IHK Take three tablets by mouth everyday METFORMIN HCL ER 500 MG [id number]-WCM METFORMIN HCL Inactive METOPROLOL SUCCINATE 100 MG BW96K-JFO 1 by mouth daily for blood pressure METOPROLOL SUCCINATE 100 MG TW45H-ZOA METOPROLOL SUCCINATE Inactive AMITIZA 24 MCG ORAL CAPS Take one capsule BID for constipation. AMITIZA 24 MCG ORAL CAPS LUBIPROSTONE Inactive TOLTERODINE TARTRATE 2 MG TABS 1 pill twice daily, for bladder TOLTERODINE TARTRATE 2 MG TABS 222187 TOLTERODINE TARTRATE Inactive CEFDINIR 300 MG CAPS by mouth twice a day CEFDINIR 300 MG CAPS 954027 CEFDINIR Inactive AZITHROMYCIN 500 MG SOLR 1 po q day AZITHROMYCIN 500 MG SOLR 81892559893 AZITHROMYCIN Inactive AMOXICILLIN 500 MG CAPS 2 po BID x 10 days AMOXICILLIN 500 MG CAPS 975990 AMOXICILLIN Inactive PENICILLIN V POTASSIUM 500 MG TABS 1 pill by mouth three times daily PENICILLIN V POTASSIUM 500 MG TABS 949139 PENICILLIN V POTASSIUM Inactive KEFLEX 500 MG CAP 1 po BID x 7 days KEFLEX 500 MG CAP 296749 CEPHALEXIN Inactive Immunizations Vaccine Administration Date Value [...] Fluvirin, Fluarix, Agriflu(>=18 yo)) Fluzone (>3 yrs.) [[id number]] Influenza, seasonal, injectable pneumococcal immunization administered Pneumovax [...] MICROALBUMIN - Chemistry sodium, serum 137 mmol/L 798-524 2799/05/19 potassium, serum 5.2 mmol/L 3.5-5.2 chloride, serum [...] Panel - Chemistry sodium, serum 137 mmol/L 504-794 4975/10/12 potassium, serum 4.8 mmol/L 3.5-5.2 chloride, serum 102 mmol/L 98-107 carbon dioxide, venous blood 27.6 mmol/L 21.0-32.0 blood glucose 168 mg/dL 65-110 calcium, serum 9.0 mg/dL 8.5-10.1 urea nitrogen, blood 15 mg/dL 7-18 creatinine, serum 1.04 mg/dL 0.55-1.30 sodium, serum 138 mmol/L 237-764 7238/11/11 potassium, serum 4.7 mmol/L 3.5-5.2 chloride, serum [...] % 11.6-14.8 platelet count 252 10^3/MM^3 10*3/mm3 414-660 4999/10/12 leukocyte count, blood 5.8 10^3/MM^3 10*3/mm3 4.6-10.2 [...] 240 10^3/MM^3 10*3/mm3 142-424 Lab Report: Chlamydia/GC APTIMA/57733, HIV-1/2 Agn/Dominga/55376, RPR (DX) W ... - Chemistry hepatitis B surface antigen NON-REACTIVE NON-REACTIVE Lab Report: Chlamydia/GC APTIMA/46814, HIV-1/2 Agn/Dominga/97269, RPR (DX) W ... - Lab chlamydia DNA probe NOT DETECTED NOT DETECTED Lab Report: Chlamydia/GC APTIMA/[id number], HIV-1/2 Agn/Dominga/13668, RPR (DX) W ... - Microbiology Neisseria gonorrhoeae DNA probe NOT DETECTED NOT DETECTED Lab Report: Chlamydia/GC APTIMA/61411, HIV-1/2 Agn/Dominga/94737, RPR (DX) W ... - Serology rapid plasma reagin antibody titer NON-REACTIVE NON-REACTIVE Lab Report: HGBA1C - Chemistry hemoglobin A1C, blood, as % of total hemoglobin 6.1 % 4.3-6.0 Lab Report: Lipid Panel, HEPATIC PANEL, MICROALBUMIN, CBC - Chemistry albumin/creatinine ratio, urine < 30 mg/g mg/g{creat} 0-29 cholesterol, serum 131 mg/dL 312-440 7958/06/03 triglyceride, serum, fasting 383 mg/dL 30-200 HDL [...] 4.7 mg/dL 2.6-7.2 cholesterol, serum 142 mg/dL 616-884 6713/06/26 triglyceride, serum, fasting 272 mg/dL 30-200 HDL [...] negative Encounters Code Encounter Date Provider Facility [facility]-61710 Level 3 Est. Patient 14:39:00 OVEN PRESS TENDER Vanessa Hickey MD [facility]-73471 Level 2 Est. Patient 18:43:34 CDT Mima Erazo [facility] CPT-22218 Level 3 Est. Patient 16:22:09 CDT Cherelle Avila [facility] CPT-38565 Level 4 Est. Patient 17:55:14 CDT Mima Erazo [facility] CPT-53657 Level 2 Est. Patient 17:13:21 CDT Alina Castaneda MD PhD [facility]-63554 Level 3 Est. Patient 14:46:15 CDT Vanessa Hickey MD [facility]-41753 Level 3 Est. Patient 09:34:56 CDT Alina Castaneda MD PhD [facility]64097 Level 3 Est. Patient 21:40:19 CDT Mima Erazo [facility]48567 Level 3 Est. Patient 09:26:40 CDT Maliheh Ziglari [facility]-56710 Level 3 Est. Patient 12:36:43 CDT Vanessa Hickey MD [facility]-97403 Level 3 Est. Patient 12:57:49 CDT Vanessa Hickey MD [facility]-54994 Level 3 Est. Patient 00:28:25 CDT Alina Castaneda MD [facility]10914 Level 2 Est. Patient 12:52:14 CDT Alina Castaneda MD [facility]79523 Level 3 Est. Patient 11:51:18 OVEN PRESS TENDER Alina Castaneda MD [facility] [place][note 2]76883 Level 3 Est. Patient 10:09:22 OVEN PRESS TENDER Alina Castaneda MD [facility]91048 Level 3 Est. Patient 14:36:26 OVEN PRESS TENDER Marvel Charles [facility]-13951 Level 3 Est. Patient 13:34:47 OVEN PRESS TENDER Alina Castaneda MD [facility] [place][note 2]88878 Level 3 Est. Patient 19:52:08 OVEN PRESS TENDER Alina Castaneda MD [facility] [place][note 2]17825 Level 3 Est. Patient 10:01:51 OVEN PRESS TENDER [facility]-83946 Level 3 Est. Patient 21:54:06 CDT Vanessa Hickey MD [facility]51375 Level 3 Est. Patient 08:54:46 CDT Alina Castaneda MD [facility] [place][note 2]37090 Level 3 Est. Patient 09:32:11 CDT Marvel Charles [facility]64921 Level 3 Est. Patient 12:02:49 CDT Alina Castaneda MD [facility] [place][note 2]94848 Level 3 Est. Patient 19:17:33 CDT Alina Castaneda MD [facility]-80076 Level 3 Est. Patient 13:19:10 CDT [facility]-11420 Level 3 Est. Patient 08:20:05 CDT Alina Castaneda MD [facility]-56809 Level 3 Est. Patient 15:17:18 CDT Alina Castaneda MD [facility] [place][note 2]61779 Level 3 Est. Patient 14:25:36 OVEN PRESS TENDER [facility]-38853 Level 3 Est. Patient 10:09:15 OVEN PRESS TENDER [facility]-81799 Level 3 Est. Patient 21:28:43 CDT Alina Castaneda MD [facility]-59277 Level 3 Est. [facility]:20[facility] Patient 19:08:12 CDT Alina Castaneda MD [facility]-78008 Level 3 Est. Patient 15:06:39 CDT [facility]-05605 Level 4 Est. Patient 17:48:15 CDT Alina Castaneda MD [facility]-83669 Level 3 Est. Patient 14:53:49 CDT Alina Castaneda MD [facility]-29309 Level 3 Est. Patient 09:35:16 CDT Alina Castaneda MD [facility]-05964 Level 3 Est. Patient 12:23:22 CDT Alina Castaneda MD [facility]-66192 Level 3 Est. Patient 16:19:15 CDT Alina Castaneda MD [facility]-82691 Level 3 Est. Patient 21:39:56 OVEN PRESS TENDER Alina Castaneda MD [facility]-88875 Level 4 Est. Patient 14:12:56 OVEN PRESS TENDER Alina Castaneda MD [facility]-64144 Level 2 Est. Patient 15:34:57 OVEN PRESS TENDER Alina Castaneda MD [facility]-74948 Level 3 Est. Patient 12:17:04 OVEN PRESS TENDER Alina Castaneda MD [facility] [place][note 2]52317 Level 3 Est. Patient 09:18:18 OVEN PRESS TENDER [facility]-15141 Level 2 Est. Patient 21:50:24 CDT Alina aCstaneda MD [facility]-77704 Level 3 Est. Patient 09:17:28 CDT [facility]-63952 Level 4 Est. Patient 18:54:02 CDT Alina Castaneda MD [facility] [place]-[address]26 Level 3 Est. Patient 10:47:10 CDT Alina Castaneda MD [facility] [place]-[address] Level 3 Est. Patient 09:22:20 CDT [facility]-08597 Level 3 Est. Patient 16:39:43 CDT [facility]-54888 Level 3 Est. Patient 16:05:16 CDT Alina Castaneda MD [facility] [place][note 2][id number] Level 3 Est. Patient 00:29:15 CDT Alina Castaneda MD [facility] [place][note 2][id number] Level 3 Est. Patient 10:49:22 [facility] Level 3 Est. Patient 21:30:19 OVEN PRESS TENDER Alina Castaneda MD [facility] CPT-54364 Level 4 Est. Patient 17:04:11 OVEN PRESS TENDER [facility] [place] CPT-75618 Level 3 Est. Patient 15:34:11 OVEN PRESS TENDER [facility] [place] CPT-23645 Level 2 Est. Patient 12:51:58 OVEN PRESS TENDER Alina Castaneda MD [facility] CPT-56981 Level 3 Est. Patient 13:20:01 OVEN PRESS TENDER Alina Castaneda MD PhD [facility] CPT-82404 Level 3 Est. Patient 09:23:35 CDT Alina Castaneda MD PhD [facility] Procedures Code Procedure Name Date Entry Date Standard Description CPT-97716 Bladder Scan 14:39:01 OVEN PRESS TENDER CPT-TCMM Transitional Care Mgmt-Moderate 10:30:19 OVEN PRESS TENDER CPT-02086 Bladder Scan 12:36:44 CDT CPT-81212 Bladder Scan 21:54:06 CDT CPT-G0008 Administration of Influenza Virus Vaccine 13:05:26 CDT CPT-54458 Fluzone Quadrivalent Intramuscular Suspension 0.5 ML 13: 05:26 CDT CPT-58106 Administration single or combination vaccine inc oral 11 :49:51 CDT CPT-53784 Pneumovax 11:49:51 CDT CPT-37095 Ribs unilateral 2V 12:37:22 OVEN PRESS TENDER CPT-82006 Chest 2V Frontal and Lat 17:15:26 CDT CPT-05688 Abx/Therapy Injection 18:54:02 CDT CPT-J0696 Rocephin 1000 mg (Ceftriaxone) 16:00:32 CDT CPT-89209 Chest 2V Frontal and Lat 15:26:45 CDT CPT-07686 Chest 2V Frontal and Lat 10:23:27 CDT CPT-65645 Venipuncture Draw Fee 10:11:00 CDT CPT-54530 Administration single or combination vaccine inc oral 11 :56:38 CDT CPT-58015 Influenza split virus > age 3 11:56:38 CDT CPT-88603 Venipuncture Draw Fee 08:49:54 OVEN PRESS TENDER CPT-73058 EKG Trac and Interp 17:54:19 OVEN PRESS TENDER
--- OUTSIDE RECORDS SUMMARY | 2018-07-02 17:18 | XMS REPORT | Clinical Summary ---
Author Author Admin, TERELL Organization [facility] [employer] Address Unknown Phone Unavailable Allergies, Adverse Reactions, [...] Other chest pain Urinary Retention 788.20 Active Vnaessa Hickey MD Retention of urine, unspecified Benign paroxysmal positional vertigo 386.11 Active Mima Erazo MEDIA ANALYST Benign paroxysmal positional vertigo Vertigo, benign paroxysmal position 386.11 Inactive Mima Erazo MEDIA ANALYST Benign paroxysmal positional vertigo High-risk sexual behavior V69.2 Active Alina Castaneda MD PhD High-risk sexual behavior Erectile dysfunction 302.72 Active Alina Castaneda MD PhD Psychosexual dysfunction with inhibited sexual excitement Constipation 564.00 Active Alina Castaneda MD PhD Constipation, unspecified Skin lesion 709.9 Active Alina Castaneda MD PhD Unspecified disorder of skin and subcutaneous tissue Malaise and fatigue 780.79 Active Cherelle Speaks MEDIA ANALYST Other malaise and fatigue Diarrhea 787.91 Active Cherelle Speaks MEDIA ANALYST Diarrhea PHARYNGITIS 462 Active Cherelle Speaks MEDIA ANALYST Acute pharyngitis Colitis 558.9 Active Mima Erazo MEDIA ANALYST Other and unspecified noninfectious gastroenteritis and colitis [...] Castaneda MD PhD SKIN LESION ICD-709.9 Inactive Alian Castaneda MD PhD SINUSITIS, ACUTE ICD-461.9 Inactive [...] Patient Instruction EFFEXOR XR 37.5 MG ORAL [id number] Take one by mouth daily VENLAFAXINE HCL 37838764201 Active Mima Vadimum ALBAN Active TRAVATAN Z 0.004 % OPHTH SOLN 1 drop each eye daily TRAVOPROST 41851327604 Active Mima Yokum MEDIA ANALYST Active FLUVOXAMINE MALEATE 50 MG ORAL TABS 1 tab by mouth daily FLUVOXAMINE MALEATE 89122593609 No Longer Active Mima Vadimum ALBAN Active MORPHINE SULFATE ER 30 MG ORAL CR-TABS Take one capsule BID MORPHINE SULFATE 44099157131 Active Mima Yokum MEDIA ANALYST Active TRUEPLUS LANCETS 30G MISC 3x a day LANCETS 01558591167 Active Marvel Charles ASPHALT DAUBER Active TRUE METRIX METER W/DEVICE KIT Check blood sugars 3x/day BLOOD GLUCOSE MONITORING SUPPL 86625248409 Active Marvel Mackenzieglari ASPHALT DAUBER Active TRUE METRIX BLOOD GLUCOSE TEST INVITR STRP Check blood sugars 3x/day. GLUCOSE BLOOD 06836989011 Active Marvel Mackenzieglari ASPHALT DAUBER Active VITAMIN D 2000 UNIT ORAL CAPS Take one by mouth daily CHOLECALCIFEROL 91038022575 Active Mima Yokum MEDIA ANALYST Active LATUDA 60 MG ORAL TABS Take one by mouth daily LURASIDONE HCL 39229118365 No Longer Active Mima Yokum MEDIA ANALYST Active HUMALOG KWIKPEN 100 UNIT/ML SC SOPN sliding scale if needed INSULIN LISPRO (HUMAN) 16096892147 Active Mima Yokum MEDIA ANALYST Active TRAZODONE HCL 100 MG TABS 1 every night to prevent headaches TRAZODONE HCL 48914860644 Active Gabrielle Madl INVENTORY AUDIT CLERK Active LATUDA 60 MG ORAL TABS 1 tab daily LURASIDONE HCL 61424290244 Active Gabrielle Madl INVENTORY AUDIT CLERK Active CLONAZEPAM 1 MG TABS 1 pill by mouth three times daily CLONAZEPAM 70968828893 Active Gabrielle Madl INVENTORY AUDIT CLERK Active [facility] MILK OF MAGNESIA 400 MG/5ML ORAL SUSP 30ml by mouth bid prn MAGNESIUM HYDROXIDE 18479701653 Active Mason Loredo MD Active TYLENOL 8 HOUR 650 MG ORAL CR-TABS 1 tab QID prn ACETAMINOPHEN 05417615498 Active Mason Loredo MD Active MYLANTA GAS RELIEF MAXIMUM STR 125 MG ORAL CAPS 30cc every 4 hours prn 12/01 SIMETHICONE 93450411432 Active Mason Loredo MD Active IMODIUM A-D 2 MG ORAL TABS 1 tab QID as needed LOPERAMIDE HCL 62151807223 Active Mason Loredo MD Active TRAVATAN Z 0.004 % SOLN 1 gtt each eye daily TRAVOPROST 89559104214 No Longer Active Mason Loredo MD Active LISINOPRIL 20 MG TABS 1 BID LISINOPRIL 89041344600 No Longer Active Mason Loredo MD Active LEVEMIR FLEXTOUCH 100 UNIT/ML SC SOPN 60 units SQ each evening, for diabetes INSULIN DETEMIR 01314782866 Active Mima Erazo APRN Active ZOLPIDEM TARTRATE 10 MG TABS take at bedtime ZOLPIDEM TARTRATE 56527114343 No Longer Active Mason Loredo MD Active HYDROCODONE-ACETAMINOPHEN 5-325 MG TABS 2 tabs by mouth three times daily for pain HYDROCODONE-ACETAMINOPHEN 51634983310 No Longer Active Mason Loredo MD Active ZOFRAN 4 MG TABS 1 po q4hr PRN Nausea ONDANSETRON HCL 14554015320 No Longer Active Mason Loredo MD Active LOMOTIL 2.5-0.025 MG ORAL TABS take 1-2 tabs PO after each stool, no more than 8 in 24 hours DIPHENOXYLATE-ATROPINE 34463475175 No Longer Active Mason Loredo MD Active COLACE 100 MG CAPS 1 pill by mouth twice daily, for constipation DOCUSATE SODIUM 06021993839 No Longer Active Mima Erazo APRN Active FLONASE ALLERGY RELIEF 50 MCG/ACT NASAL SUSP One spray each nostril BID x 1 week then daily FLUTICASONE PROPIONATE 37737121662 Active Mima Erazo APRN Active BD PEN NEEDLE MINI U/F 31G X 5 MM MISC 4 a day INSULIN PEN NEEDLE 27905075141 Active Marvel MARROQUIN Active AMITIZA 24 MCG ORAL CAPS Take one capsule BID for constipation LUBIPROSTONE 69016210426 Active Mima Erazo APRN Active TRUEPLUS LANCETS 30G MISC 3 a day LANCETS 71844174562 Active Marvel MARROQUIN Active TOLTERODINE TARTRATE 2 MG TABS 1 pill twice daily, for bladder TOLTERODINE TARTRATE 56859616059 No Longer Active Vanessa Hickey MD Active AMITIZA 24 MCG ORAL CAPS Take one capsule BID for constipation. LUBIPROSTONE 93030820791 No Longer Active Vanessa Hickey MD Active FLUVOXAMINE MALEATE 100 MG ORAL TABS take one tab every AM et HS, and take 1/ 2 tab at noon FLUVOXAMINE MALEATE 34263426523 Active Grace Azam RMA Active METOPROLOL SUCCINATE 100 MG [id number] 1 by mouth daily for blood pressure METOPROLOL SUCCINATE 69886840738 No Longer Active Grace Azam RMA Active METFORMIN HCL ER 500 MG DW42B-UAM Take three tablets by mouth everyday METFORMIN HCL 77749412257 No Longer Active Grace Azam RMA Active LOVAZA 1 GM CAPS 4 daily (for triglycerides) OMEGA-3- ACID ETHYL ESTERS 67081898891 No Longer Active Grace Azam RMA Active TRAZODONE HCL 100 MG ORAL TABS 1 tab by mouth for sleep TRAZODONE HCL 08895972660 No Longer Active Grace Azam RMA Active NOVOFINE 32G X 6 MM MISC use one four times per day INSULIN PEN NEEDLE 74449477002 No Longer Active Grace Azam RMA Active BACTROBAN 2 % CREAM Apply to affected area BID for up to 10 days MUPIROCIN CALCIUM 18539181402 No Longer Active Grace Azam RMA Active KEFLEX 500 MG CAP 1 po BID x 7 days CEPHALEXIN 88734614757 No Longer Active Cherelle Avila APRN Active FLUVOXAMINE MALEATE 100 MG TABS Take one (1) tablet by mouth am, 1/2 at noon FLUVOXAMINE MALEATE 66161499279 No Longer Active Mimacecily Erazo MEDIA ANALYST Active CORICIDIN HBP CONGESTION/COUGH 10-200 MG ORAL CAPS Take as directed on box as needed for cold/flu symptoms DEXTROMETHORPHAN-GUAIFENESIN 98200504488 Active Cherelle Speaks MEDIA ANALYST Active OMEGA-3 300 MG ORAL CAPS 4 caps by mouth daily OMEGA-3 FATTY ACIDS 17635624824 Active Mima Yokum MEDIA ANALYST Active FLUVOXAMINE MALEATE 100 MG ORAL TABS Take 1/2 tab at noon FLUVOXAMINE MALEATE 27687825595 No Longer Active Cherelle Avila ALBAN Active [facility] LUBRICANT EYE DROPS 0.4-0.3 % OPHTH SOLN POLYETHYL GLYCOL-PROPYL GLYCOL 61240328043 Active Mima Erazo MEDIA ANALYST Active MIRALAX POWD 17g by mouth daily, for constipation POLYETHYLENE GLYCOL 3350 32699978425 Active Alina Castaneda MD PhD Active TRUETEST TEST STRP check blood sugars 3x/day GLUCOSE BLOOD 10386729903 Active Maliheh Ziglari ASPHALT DAUBER Active ACCU-CHEK ROSA UZMA Use device to check blood sugars BLOOD GLUCOSE MONITORING SUPPL 84866901581 No Longer Active Maliheh Ziglari ASPHALT DAUBER Active ACCU-CHEK ROSA INVITR STRP use strips with device to check blood sugars 3 times daily GLUCOSE BLOOD 53692731086 No Longer Active MalHireologyeh Ziglari ASPHALT DAUBER Active VERAPAMIL HCL ER 180 MG ORAL CR-TABS 1 pill by mouth twice daily, for migraine prevention VERAPAMIL HCL 46776975462 Active Mima Erazo APRN Active CYCLOBENZAPRINE HCL 10 MG TABS 1 tablet by mouth three times daily, scheduled CYCLOBENZAPRINE HCL 02707701629 No Longer Active Alina Castaneda MD PhD Active HUMALOG 100 UNIT/ML SOLN Take 20 units with breakfast, 10u with lunch and suppetr. INSULIN LISPRO (HUMAN) 03458016507 No Longer Active Alina Castaneda MD PhD Active TRUETEST TEST STRP check sugars 4x/day GLUCOSE BLOOD 15629857044 No Longer Active Alina Castaneda MD PhD Active MORPHINE SULFATE 30 MG TABS 1 pill by mouth twice daily, for pain MORPHINE SULFATE 19399408562 No Longer Active Mason Loredo MD Active ACYCLOVIR 400 MG ORAL TABS 1 pill three times daily x 5 days, for cold sore outbreak ACYCLOVIR 30555093910 No Longer Active Alina Castaneda MD PhD Active PENICILLIN V POTASSIUM 500 MG TABS 1 pill by mouth three times daily PENICILLIN V POTASSIUM 39016151138 No Longer Active Alina Castaneda MD PhD Active UROXATRAL 10 MG [id number]-XCT Take 1 tablet by mouth daily ALFUZOSIN HCL 78109306625 No Longer Active Alina Castaneda MD PhD Active THIOTHIXENE 5 MG CAPS by mouth twice a day THIOTHIXENE 52706626094 No Longer Active Alina Castaneda MD PhD Active ZYPREXA 7.5 MG TABS 1 at HS OLANZAPINE 71129531764 No Longer Active Alina Castaneda MD PhD Active BD INSULIN SYRINGE 28G X 1/2" 1 ML MISC 1 four times per day INSULIN SYRINGE-NEEDLE U-100 58756201442 Active Marvel Charles ASPHALT DAUBER Active DETROL LA 4 MG [id number]-RER Take 1 tablet by mouth daily TOLTERODINE TARTRATE 00957662559 No Longer Active Alina Castaneda MD PhD Active TERESE CONTOUR TEST STRP monitor blood sugars 3x/day GLUCOSE BLOOD 54687896371 No Longer Active Alina Castaneda MD PhD Active EQL TRUETEST TEST STRP Test blood sugar TID GLUCOSE BLOOD 54530270955 No Longer Active Alina Castaneda MD PhD Active FLUTICASONE PROPIONATE 50 MCG/ACT SUSP 2 sprays each nostril qDay x 30 days FLUTICASONE PROPIONATE 64527108783 No Longer Active Alina Castaneda MD PhD Active IBUPROFEN 200 MG TABS 1 Q 6 hr. PRN IBUPROFEN 56625081093 No Longer Active Alina Castaneda MD PhD Active NIACIN ER 500 MG CR-TABS 4 qHS (for triglycerides) NIACIN 66533248687 No Longer Active Alina Castaneda MD PhD Active ALFUZOSIN HCL ER 10 MG [id number] 1 tablet daily ALFUZOSIN HCL 59946332625 Active Mima Erazo MEDIA ANALYST Active SAPHRIS 5 MG SUBL by mouth twice a day ASENAPINE MALEATE 04661647125 No Longer Active Marvel Mackenzieglari ASPHALT DAUBER Active ACETAMINOPHEN 500 MG TABS 2 Q 6 hr. PRN ACETAMINOPHEN 72899620519 No Longer Active Maliheh Ziglari ASPHALT DAUBER Active ORPHENADRINE CITRATE ER 100 MG DN76O-RRJ 1 every 12 hr. as needed ORPHENADRINE CITRATE 87367658988 No Longer Active Alina Castaneda MD PhD Active NIACIN CR 500 MG CR-TABS 2 qHS NIACIN 32280562440 No Longer Active Alina Castaneda MD PhD Active AMOXICILLIN 500 MG CAPS 2 po BID x 10 days AMOXICILLIN 81802885858 No Longer Active Alina Castaneda MD PhD Active HYDROCODONE-ACETAMINOPHEN 7.5-325 MG TABS 1 four times a day as needed for pain HYDROCODONE-ACETAMINOPHEN 48533671321 No Longer Active Alina Castaneda MD PhD Active DOXEPIN HCL 10 MG CAPS Take 1 tablet by mouth daily DOXEPIN HCL 38470943451 No Longer Active [facility] Active NAVANE 10 MG CAPS 1/2 tablet twice a day THIOTHIXENE No Longer Active Salina Han [facility] Active CYCLOBENZAPRINE HCL 10 MG TABS 1/2 tablet by mouth every 8 hours as needed for muscle spasms CYCLOBENZAPRINE HCL 47757745106 No Longer Active Alina Castaneda MD PhD Active BACTROBAN 2 % CREAM apply to ear and nose twice daily MUPIROCIN CALCIUM 28422442757 No Longer Active Alina Castaneda MD PhD Active HYDROCODONE-ACETAMINOPHEN 5-325 MG TABS take one tablet by mouth every four hours as needed for pain HYDROCODONE-ACETAMINOPHEN 63205635086 No Longer Active Alina Castaneda MD PhD Active ZYPREXA 5 MG TABS take one tablet by mouth every evening OLANZAPINE 95462125528 No Longer Active Alina Castaneda MD PhD Active ALBUTEROL SULFATE 0.083 % NEBU SOLN one vial per nebulizer TID and PRN cough/ soa ALBUTEROL SULFATE 89719927046 No Longer Active Alina Castaneda MD PhD Active GUAIFENESIN 600 MG HB86X-BMG 1 tablet by mouth twice daily if needed for cough GUAIFENESIN 23120442520 No Longer Active Marvel MARROQUIN Active AZITHROMYCIN 500 MG SOLR 1 po q day AZITHROMYCIN 73345999816 No Longer Active Alina Castaneda MD PhD Active PROMETHAZINE-CODEINE 6.25-10 MG/5ML SYRP 1 tsp po q 6 hours prn cough PROMETHAZINE-CODEINE 39160521271 No Longer Active Alina Castaneda MD PhD Active CEFDINIR 300 MG CAPS by mouth twice a day CEFDINIR 63475840757 No Longer Active Alina Castaneda MD PhD Active METFORMIN HCL 500 MG [id number]-OEK Take 3 tablets by mouth everyday METFORMIN HCL 74007356856 No Longer Active Alina Castaneda MD PhD Active LEVEMIR 100 UNIT/ML SOLN 90 units SQ qHS INSULIN DETEMIR 73318400106 No Longer Active Marvel MARROQUIN Active TOPROL XL 100 MG LD69W-UGD 1 @ HS METOPROLOL SUCCINATE 68856131495 No Longer Active Marvel MARROQUIN Active ALLOPURINOL 300 MG TABS Take one by mouth daily ALLOPURINOL 28438981375 Active Mima Yoeloinaum MEDIA ANALYST Active ZYPREXA 10 MG TABS Take one by mouth daily OLANZAPINE 19628099636 No Longer Active Alina Castaneda MD PhD Active NOVOLOG 100 UNIT/ML SOLN 40 units with every meal INSULIN ASPART 47266887141 No Longer Active Alina Castaneda MD PhD Active VERAPAMIL HCL CR 120 MG TAB CR 1 qPM VERAPAMIL HCL 15238896181 No Longer Active Salina Han RMA Active ZYPREXA 15 MG TABS Take 1 tablet by mouth daily OLANZAPINE 98933483915 No Longer Active Marvel MENDOZAP Active ALBUTEROL SULFATE (2.5 MG/3ML) 0.083% NEBU 1 neb tid and prn cough ALBUTEROL SULFATE 47873619126 No Longer Active Alina Castaneda MD PhD Active LANTUS 100 UNIT/ML SOLN 60 units sq q hs INSULIN GLARGINE 18845085184 No Longer Active CRYSTAL Suarez Active ALBUTEROL SULFATE (2.5 MG/3ML) 0.083% NEBU 1 neb tid and prn cough ALBUTEROL SULFATE (2.5 MG/3ML) 0.083% NEBU 744839 ALBUTEROL SULFATE Inactive ZYPREXA 15 MG TABS Take 1 tablet by mouth daily ZYPREXA 15 MG TABS 562853 OLANZAPINE Inactive VERAPAMIL HCL CR 120 MG TAB CR 1 qPM VERAPAMIL HCL CR 120 MG TAB CR VERAPAMIL HCL Inactive ZYPREXA 10 MG TABS Take one by mouth daily ZYPREXA 10 MG TABS 333291 OLANZAPINE Inactive TOPROL XL 100 MG [id number] 1 @ HS TOPROL XL 100 MG BV27Y-GCU METOPROLOL SUCCINATE Inactive LEVEMIR 100 UNIT/ML SOLN 90 units SQ qHS LEVEMIR 100 UNIT/ML SOLN INSULIN DETEMIR Inactive PROMETHAZINE-CODEINE 6.25-10 MG/5ML SYRP 1 tsp po q 6 hours prn cough PROMETHAZINE-CODEINE 6.25-10 MG/5ML SYRP 148364 PROMETHAZINE- CODEINE Inactive GUAIFENESIN 600 MG CD92P-HHL 1 tablet by mouth twice daily if needed for cough GUAIFENESIN 600 MG ZI87C-DFA GUAIFENESIN Inactive ALBUTEROL SULFATE 0.083 % NEBU SOLN one vial per nebulizer TID and PRN cough/ soa ALBUTEROL SULFATE 0.083 % NEBU SOLN 590272 ALBUTEROL SULFATE Inactive ZYPREXA 5 MG TABS take one tablet by mouth every evening ZYPREXA 5 MG TABS 338632 OLANZAPINE Inactive HYDROCODONE-ACETAMINOPHEN 5-325 MG TABS take one tablet by mouth every four hours as needed for pain HYDROCODONE-ACETAMINOPHEN 5-325 MG TABS 257191 HYDROCODONE-ACETAMINOPHEN Inactive BACTROBAN 2 % CREAM apply to ear and nose twice daily BACTROBAN 2 % CREAM 849104 MUPIROCIN CALCIUM Inactive CYCLOBENZAPRINE HCL 10 MG TABS 1/2 tablet by mouth every 8 hours as needed for muscle spasms CYCLOBENZAPRINE HCL 10 MG TABS 363470 CYCLOBENZAPRINE HCL Inactive NAVANE 10 MG CAPS 1/2 tablet twice a day NAVANE 10 MG CAPS THIOTHIXENE Inactive DOXEPIN HCL 10 MG CAPS Take 1 tablet by mouth daily DOXEPIN HCL 10 MG CAPS 7887230 DOXEPIN HCL Inactive HYDROCODONE-ACETAMINOPHEN 7.5-325 MG TABS 1 four times a day as needed for pain HYDROCODONE-ACETAMINOPHEN 7.5-325 MG TABS 656225 HYDROCODONE-ACETAMINOPHEN Inactive NIACIN CR 500 MG CR-TABS 2 qHS NIACIN CR 500 MG CR- TABS NIACIN Inactive ORPHENADRINE CITRATE ER 100 MG [id number] 1 every 12 hr. as needed ORPHENADRINE CITRATE ER 100 MG [id number]-BQL ORPHENADRINE CITRATE Inactive ACETAMINOPHEN 500 MG TABS 2 Q 6 hr. PRN ACETAMINOPHEN 500 MG TABS 270640 ACETAMINOPHEN Inactive SAPHRIS 5 MG SUBL by mouth twice a day SAPHRIS 5 MG SUBL ASENAPINE MALEATE Inactive NIACIN ER 500 MG CR-TABS 4 qHS (for triglycerides) NIACIN ER 500 MG CR-TABS NIACIN Inactive IBUPROFEN 200 MG TABS 1 Q 6 hr. PRN IBUPROFEN 200 MG TABS 252711 IBUPROFEN Inactive FLUTICASONE PROPIONATE 50 MCG/ACT SUSP 2 sprays each nostril qDay x 30 days FLUTICASONE PROPIONATE 50 MCG/ACT SUSP 2309343 FLUTICASONE PROPIONATE Inactive EQL TRUETEST TEST STRP Test blood sugar TID EQL TRUETEST TEST STRP GLUCOSE BLOOD Inactive TERESE CONTOUR TEST STRP monitor blood sugars 3x/day TERESE CONTOUR TEST STRP GLUCOSE BLOOD Inactive DETROL LA 4 MG [id number] Take 1 tablet by mouth daily DETROL LA 4 MG [id number]-YSK TOLTERODINE TARTRATE Inactive ZYPREXA 7.5 MG TABS 1 at HS ZYPREXA 7.5 MG TABS 012058 OLANZAPINE Inactive THIOTHIXENE 5 MG CAPS by mouth twice a day THIOTHIXENE 5 MG CAPS 991091 THIOTHIXENE Inactive UROXATRAL 10 MG FD36B-ZJE Take 1 tablet by mouth daily UROXATRAL 10 MG OA25M-NVA ALFUZOSIN HCL Inactive ACYCLOVIR 400 MG ORAL TABS 1 pill three times daily x 5 days, for cold sore outbreak ACYCLOVIR 400 MG ORAL TABS 097358 ACYCLOVIR Inactive TRUETEST TEST STRP check sugars 4x/day TRUETEST TEST STRP GLUCOSE BLOOD Inactive HUMALOG 100 UNIT/ML SOLN Take 20 units with breakfast, 10u with lunch and suppetr. HUMALOG 100 UNIT/ML SOLN INSULIN LISPRO ( HUMAN) Inactive CYCLOBENZAPRINE HCL 10 MG TABS 1 tablet by mouth three times daily, scheduled CYCLOBENZAPRINE HCL 10 MG TABS 198099 CYCLOBENZAPRINE HCL Inactive ACCU-CHEK ROSA INVITR STRP use strips with device to check blood sugars 3 times daily ACCU-CHEK ROSA INVITR STRP GLUCOSE BLOOD Inactive ACCU-CHEK ROSA UZMA Use device to check blood sugars ACCU-CHEK ROSA UZMA BLOOD GLUCOSE MONITORING SUPPL Inactive FLUVOXAMINE MALEATE 100 MG ORAL TABS Take 1/2 tab at noon FLUVOXAMINE MALEATE 100 MG ORAL TABS 223993 FLUVOXAMINE MALEATE Inactive FLUVOXAMINE MALEATE 100 MG TABS Take one (1) tablet by mouth am, 1/2 at noon FLUVOXAMINE MALEATE 100 MG TABS 015363 FLUVOXAMINE MALEATE Inactive BACTROBAN 2 % CREAM Apply to affected area BID for up to 10 days BACTROBAN 2 % CREAM 015900 MUPIROCIN CALCIUM Inactive NOVOFINE 32G X 6 MM MISC use one four times per day NOVOFINE 32G X 6 MM MISC INSULIN PEN NEEDLE Inactive TRAZODONE HCL 100 MG ORAL TABS 1 tab by mouth for sleep TRAZODONE HCL 100 MG ORAL TABS 090663 TRAZODONE HCL Inactive LOVAZA 1 GM CAPS 4 daily (for triglycerides) LOVAZA 1 GM CAPS 452488 AUYFQ-1-UBSX ETHYL ESTERS Inactive METFORMIN HCL ER 500 MG [id number] Take three tablets by mouth everyday METFORMIN HCL ER 500 MG FK23P-JVI METFORMIN HCL Inactive METOPROLOL SUCCINATE 100 MG AY37C-PBR 1 by mouth daily for blood pressure METOPROLOL SUCCINATE 100 MG CW01P-BLG METOPROLOL SUCCINATE Inactive AMITIZA 24 MCG ORAL CAPS Take one capsule BID for constipation. AMITIZA 24 MCG ORAL CAPS LUBIPROSTONE Inactive TOLTERODINE TARTRATE 2 MG TABS 1 pill twice daily, for bladder TOLTERODINE TARTRATE 2 MG TABS 361183 TOLTERODINE TARTRATE Inactive COLACE 100 MG CAPS 1 pill by mouth twice daily, for constipation COLACE 100 MG CAPS 8030035 DOCUSATE SODIUM Inactive LOMOTIL 2.5-0.025 MG ORAL TABS take 1-2 tabs PO after each stool, no more than 8 in 24 hours LOMOTIL 2.5-0.025 MG ORAL TABS 0126549 DIPHENOXYLATE-ATROPINE Inactive ZOFRAN 4 MG TABS 1 po q4hr PRN Nausea ZOFRAN 4 MG TABS 513682 ONDANSETRON HCL Inactive HYDROCODONE-ACETAMINOPHEN 5-325 MG TABS 2 tabs by mouth three times daily for pain HYDROCODONE-ACETAMINOPHEN 5-325 MG TABS 478612 HYDROCODONE-ACETAMINOPHEN Inactive ZOLPIDEM TARTRATE 10 MG TABS take at bedtime ZOLPIDEM TARTRATE 10 MG TABS 361353 ZOLPIDEM TARTRATE Inactive LISINOPRIL 20 MG TABS 1 BID LISINOPRIL 20 MG TABS 429638 LISINOPRIL Inactive TRAVATAN Z 0.004 % SOLN 1 gtt each eye daily TRAVATAN Z 0.004 % SOLN TRAVOPROST Inactive LATUDA 60 MG ORAL TABS Take one by mouth daily LATUDA 60 MG ORAL TABS LURASIDONE HCL Inactive FLUVOXAMINE MALEATE 50 MG ORAL TABS 1 tab by mouth daily FLUVOXAMINE MALEATE 50 MG ORAL TABS 827458 FLUVOXAMINE MALEATE Inactive CEFDINIR 300 MG CAPS by mouth twice a day CEFDINIR 300 MG CAPS 251654 CEFDINIR Inactive AZITHROMYCIN 500 MG SOLR 1 po q day AZITHROMYCIN 500 MG SOLR 56051159777 AZITHROMYCIN Inactive AMOXICILLIN 500 MG CAPS 2 po BID x 10 days AMOXICILLIN 500 MG CAPS 213656 AMOXICILLIN Inactive PENICILLIN V POTASSIUM 500 MG TABS 1 pill by mouth three times daily PENICILLIN V POTASSIUM 500 MG TABS 623418 PENICILLIN V POTASSIUM Inactive KEFLEX 500 MG CAP 1 po BID x 7 days KEFLEX 500 MG CAP 249591 CEPHALEXIN Inactive Immunizations Vaccine Administration Date Value [...] Fluvirin, Fluarix, Agriflu(>=18 yo)) Fluzone (>3 yrs.) [PSI523] Influenza, seasonal, injectable pneumococcal immunization administered Pneumovax [...] HGBA1C - Chemistry sodium, serum 140 mmol/L [phone]/11/09 potassium, serum 4.0 mmol/L 3.5-5.2 chloride, serum [...] Acid - Chemistry cholesterol, serum 187 mg/dL 252-839 2164/06/14 triglyceride, serum, fasting 246 mg/dL 30-200 HDL [...] negative Encounters Code Encounter Date Provider Facility CPT-44562 Level 3 Est. Patient 09:12:14 BOAT BUILDER Mima Erazo [facility] CPT-05080 Level 3 Est. Patient 16:52:51 CDT Vanessa Hickey MD [facility] CPT-26748 Level 3 Est. Patient 17:40:16 CDT Mima Erazo [facility] CPT-21593 Level 3 Est. Patient 14:34:52 CDT Vanessa Hickey MD [facility] CPT-97095 Level 3 Est. Patient 16:27:51 CDT Mima Erazo [facility] CPT-40681 Level 3 Est. Patient 14:39:00 BOAT BUILDER Vanessa Hickey MD [facility] CPT-36072 Level 2 Est. Patient 18:43:34 CDT Mima Erazo [facility] CPT-70976 Level 3 Est. Patient 16:22:09 CDT Cherelle Avila [facility] CPT-43374 Level 4 Est. Patient 17:55:14 CDT Mima Erazo [facility] CPT-68684 Level 2 Est. Patient 17:13:21 CDT Alina Castaneda MD [facility]-19181 Level 3 Est. Patient 14:46:15 CDT Vanessa Hickey MD [facility]-29711 Level 3 Est. Patient 09:34:56 CDT Alina Castaneda MD [facility]-26251 Level 3 Est. Patient 21:40:19 CDT Mima Erazo [facility] CPT-78573 Level 3 Est. Patient 09:26:40 CDT Marvel Charles [facility]-12733 Level 3 Est. Patient 12:36:43 CDT Vanessa Hickey MD [facility]-25895 Level 3 Est. Patient 12:57:49 CDT Vanessa Hickey MD [facility]-74266 Level 3 Est. Patient 00:28:25 CDT Alina Castaneda MD [facility]-66957 Level 2 Est. Patient 12:52:14 CDT Alina Castaneda MD [facility]-71174 Level 3 Est. Patient 11:51:18 BOAT BUILDER Alina Castaneda MD [facility]-85055 Level 3 Est. Patient 10:09:22 BOAT BUILDER Alina Castaneda MD [facility]-88400 Level 3 Est. Patient 14:36:26 BOAT BUILDER Marvel [facility] Est[facility] Patient 13:34:47 BOAT BUILDER Alina Castaneda MD [facility]-57251 Level 3 Est. Patient 19:52:08 BOAT BUILDER Alina Castaneda MD [facility]11979 Level 3 Est. Patient 10:01:51 BOAT BUILDER Marvel Araceli [facility]-04407 Level 3 Est. Patient 21:54:06 CDT Vanessa Hickey MD [facility]-55165 Level 3 Est. Patient 08:54:46 CDT Alina Castaneda [facility]95833 Level 3 Est. Patient 09:32:11 [facility]-16405 Level 3 Est. Patient 12:02:49 CDT Alina Castaneda MD [facility]-67042 Level 3 Est. Patient 19:17:33 CDT Alina Castaneda MD [facility]36028 Level 3 Est. Patient 13:19:10 CDT Marvel Charles [facility]-06160 Level 3 Est. Patient 08:20:05 CDT Alina Castaneda MD [facility]-42889 Level 3 Est. Patient 15:17:18 CDT Alina Castaneda MD [facility]-26207 Level 3 Est. Patient 14:25:36 BOAT BUILDER Marvel Charles [facility]32269 Level 3 Est. Patient 10:09:15 BOAT BUILDER Marvel Charles [facility]-98572 Level 3 Est. Patient 21:28:43 CDT Alina Castaneda MD [facility]68368 Level 3 Est. Patient 15:20:11 CDT Marvel Charles [facility] CPT-38932 Level 4 Est. Patient 19:08:12 CDT Alina Castaneda MD [facility]-10351 Level 3 Est. Patient 15:06:39 CDT Marvel Charles [facility] CPT-45566 Level 4 Est. Patient 17:48:15 CDT Alina Castaneda MD [facility] CPT-95589 Level 3 Est. Patient 14:53:49 CDT Alina Castaneda MD [facility]-67218 Level 3 Est. Patient 09:35:16 CDT Alina Castaneda MD [facility]-97427 Level 3 Est. Patient 12:23:22 CDT Alina Castaneda MD [facility] CPT-91629 Level 3 Est. Patient 16:19:15 CDT Alina Castaneda MD [facility] CPT-61543 Level 3 Est. 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 Patient 14:12:56 BOAT BUILDER Alina Castaneda MD [facility] CPT-26767 Level 2 Est. Patient 15:34:57 BOAT BUILDER Alina Castaneda MD [facility] CPT-29806 Level 3 Est. Patient 12:17:04 BOAT BUILDER Alina Castaneda MD [facility]-37528 Level 3 Est. Patient 09:18:18 BOAT BUILDER Marvel Charles [facility] CPT-61489 Level 2 Est. Patient 21:50:24 CDT Alina Castaneda MD [facility]-30161 Level 3 Est. Patient 09:17:28 CDT Brooksjohn Charles [facility]-07653 Level 4 Est. Patient 18:54:02 CDT Alina Castaneda MD [facility]-32517 Level 3 Est. Patient 10:47:10 CDT Alina Castaneda MD [facility]21347 Level 3 Est. Patient 09:22:20 CDT Marvel Araceli [facility]-16207 Level 3 Est. Patient 16:39:43 CDT Marvel Araceli [facility]-51216 Level 3 Est. Patient 16:05:16 CDT Alina Castaneda MD [facility]-77402 Level 3 Est. Patient 00:29:15 CDT Alina Castaneda MD [facility]06014 Level 3 Est. Patient 10:49:22 BOAT BUILDER Brooksjohn Charles [facility]-50391 Level 3 Est. Patient 21:30:19 BOAT BUILDER Alina Castaneda MD [facility]-35703 Level 4 Est. Patient 17:04:11 BOAT BUILDER Brooksjohn Charles [facility]-79994 Level 3 Est. Patient 15:34:11 BOAT BUILDER Brookslashondanivia Araceli [facility]-78092 Level 2 Est. Patient 12:51:58 BOAT BUILDER Alina Castaneda MD [facility]-16134 Level 3 Est. Patient 13:20:01 BOAT BUILDER Alina Castaneda MD [facility]-67148 Level 3 Est. Patient 09:23:35 CDT Alina Castaneda MD PhD [facility] Procedures Code Procedure Name Date Entry Date Standard Description CPT-57597 HGBA1C - LAB USE ONLY 09:30:27 BOAT BUILDER CPT-46851 BMP - LAB USE ONLY 09:30:27 BOAT BUILDER CPT-20524 Venipuncture Draw Fee 09:30:26 BOAT BUILDER CPT-TCMM Transitional Care Mgmt-Moderate 10:25:31 CDT CPT-31713 Bladder Scan 14:34:53 CDT CPT-52837 Bladder Scan 14:39:01 BOAT BUILDER CPT-TCMM Transitional Care Mgmt-Moderate 10:30:19 BOAT BUILDER CPT-84175 Bladder Scan 12:36:44 CDT CPT-21266 Bladder Scan 21:54:06 CDT CPT-G0008 Administration of Influenza Virus Vaccine 13:05:26 CDT CPT-40992 Fluzone Quadrivalent Intramuscular Suspension 0.5 ML 13: 05:26 CDT CPT-01391 Administration single or combination vaccine inc oral 11 :49:51 CDT CPT-46436 Pneumovax 11:49:51 CDT CPT-86035 Ribs unilateral 2V 12:37:22 BOAT BUILDER CPT-43168 Chest 2V Frontal and Lat 17:15:26 CDT CPT-67021 Abx/Therapy Injection 18:54:02 CDT CPT-J0696 Rocephin 1000 mg (Ceftriaxone) 16:00:32 CDT CPT-81972 Chest 2V Frontal and Lat 15:26:45 CDT CPT-36579 Chest 2V Frontal and Lat 10:23:27 CDT CPT-48810 Venipuncture Draw Fee 10:11:00 CDT CPT-80682 Administration single or combination vaccine inc oral 11 :56:38 CDT CPT-30508 Influenza split virus > age 3 11:56:38 CDT CPT-20243 Venipuncture Draw Fee 08:49:54 BOAT BUILDER CPT-99827 EKG Trac and Interp 17:54:19 BOAT BUILDER
--- OUTSIDE RECORDS SUMMARY | 2018-07-02 17:20 | XMS REPORT | Clinical Summary ---
[...] Other and unspecified hyperlipidemia HYPERTENSION 401.9 Correction lAina Castaneda MD PhD Unspecified essential hypertension URI [...] mouth twice daily, for constipation DOCUSATE SODIUM 35567372587 Active Alina Castaneda MD PhD Active TRUETEST TEST STRP check blood sugars 3x/day GLUCOSE BLOOD 45079142320 Active Marvel MARROQUIN Active ACCU-CHEK ROSA UZMA Use device to check blood sugars BLOOD GLUCOSE MONITORING SUPPL 21216570854 No Longer Active Marvel MARROQUIN Active ACCU-CHEK ROSA INVITR STRP use strips with device to check blood sugars 3 times daily GLUCOSE BLOOD 41141971911 No Longer Active Marvel MARROQUIN Active VERAPAMIL HCL ER 180 MG ORAL CR-TABS 1 pill by mouth twice daily, for migraine prevention VERAPAMIL HCL 99264054959 Active Alina Castaneda MD PhD Active CYCLOBENZAPRINE HCL 10 MG TABS 1 tablet by mouth three times daily, scheduled CYCLOBENZAPRINE HCL 86600795086 No Longer Active Alina Castaneda MD PhD Active HUMALOG 100 UNIT/ML SOLN Take 20 units with breakfast, 10u with lunch and suppetr. INSULIN LISPRO (HUMAN) 87393162589 No Longer Active Alina Castaneda MD PhD Active TRUETEST TEST STRP check sugars 4x/day GLUCOSE BLOOD 02760764363 No Longer Active Alina Castaneda MD PhD Active MORPHINE SULFATE 30 MG TABS 1 pill by mouth twice daily, for pain MORPHINE SULFATE 00658809982 Active Alina Castaneda MD PhD Active ACYCLOVIR 400 MG ORAL TABS 1 pill three times daily x 5 days, for cold sore outbreak ACYCLOVIR 81357925335 No Longer Active Alina Castaneda MD PhD Active PENICILLIN V POTASSIUM 500 MG TABS 1 pill by mouth three times daily PENICILLIN V POTASSIUM 78162353755 No Longer Active Alina Castaneda MD PhD Active LATUDA 80 MG TABS 1 tab by mouth every evening LURASIDONE HCL 77862127907 Active Alina Castaneda MD PhD Active UROXATRAL 10 MG [id number] Take 1 tablet by mouth daily ALFUZOSIN HCL 90997621073 No Longer Active Alina Castaneda MD PhD Active THIOTHIXENE 5 MG CAPS by mouth twice a day THIOTHIXENE 95972542457 No Longer Active Alina Castaneda MD PhD Active ZYPREXA 7.5 MG TABS 1 at HS OLANZAPINE 84191639419 No Longer Active Alina Castaneda MD PhD Active LEVEMIR 100 UNIT/ML SOLN Take 70 u at 7-8pm INSULIN DETEMIR 64912105494 Active Maliheh Ziglari SIDE LASTER TACK Active BD INSULIN SYRINGE 28G X 1/2" 1 ML MISC 1 four times per day INSULIN SYRINGE-NEEDLE U-100 95833846029 Active Maliheh Ziglari SIDE LASTER TACK Active TOLTERODINE TARTRATE 2 MG TABS 1 pill twice daily, for bladder TOLTERODINE TARTRATE 22585656372 Active Alina Castaneda MD PhD Active DETROL LA 4 MG [id number] Take 1 tablet by mouth daily TOLTERODINE TARTRATE 21881613624 No Longer Active Alina Castaneda MD PhD Active HYDROCODONE-ACETAMINOPHEN 5-325 MG TABS 2 tabs by mouth three times daily as needed for pain HYDROCODONE-ACETAMINOPHEN 13059422818 Active Alina Castaneda MD PhD Active TERESE CONTOUR TEST STRP monitor blood sugars 3x/day GLUCOSE BLOOD 34667892341 No Longer Active Alina Castaneda MD PhD Active EQL TRUETEST TEST STRP Test blood sugar TID GLUCOSE BLOOD 28919179135 No Longer Active Alina Castaneda MD PhD Active FLUTICASONE PROPIONATE 50 MCG/ACT SUSP 2 sprays each nostril qDay x 30 days FLUTICASONE PROPIONATE 56103862008 No Longer Active Alina Castaneda MD PhD Active IBUPROFEN 200 MG TABS 1 Q 6 hr. PRN IBUPROFEN 95171184314 No Longer Active Alina Castaneda MD PhD Active NIACIN ER 500 MG CR-TABS 4 qHS (for triglycerides) NIACIN 87389857477 No Longer Active Alina Castaneda MD PhD Active ALFUZOSIN HCL ER 10 MG [id number]-[id number] 1 tablet daily ALFUZOSIN HCL 67767391220 Active Vanessa Hickey MD Active CLONAZEPAM 1 MG TABS 1 pill by mouth three times daily CLONAZEPAM 71219529132 Active Alina Castaneda MD PhD Active LOVAZA 1 GM CAPS 4 daily (for triglycerides) [id number] ETHYL ESTERS 72085368675 Active Alina Castaneda MD PhD Active SAPHRIS 5 MG SUBL by mouth twice a day ASENAPINE MALEATE 58378440365 No Longer Active Maljohn Charles SIDE LASTER TACK Active ACETAMINOPHEN 500 MG TABS 2 Q 6 hr. PRN ACETAMINOPHEN 78212808809 No Longer Active Maliheh Ziglari SIDE LASTER TACK Active ORPHENADRINE CITRATE ER 100 MG [id number]-EUD 1 every 12 hr. as needed ORPHENADRINE CITRATE 20736351125 No Longer Active Alina Castaneda MD PhD Active NIACIN CR 500 MG CR-TABS 2 qHS NIACIN 15112824439 No Longer Active Alina Castaneda MD PhD Active AMOXICILLIN 500 MG CAPS 2 po BID x 10 days AMOXICILLIN 98520784117 No Longer Active Alina Castaneda MD PhD Active HYDROCODONE-ACETAMINOPHEN 7.5-325 MG TABS 1 four times a day as needed for pain HYDROCODONE-ACETAMINOPHEN 66948617229 No Longer Active Alina Castaneda MD PhD Active METFORMIN HCL ER 500 MG [id number]-JUZ Take three tablets by mouth everyday METFORMIN HCL 88388138566 Active Alina Castaneda MD PhD Active DOXEPIN HCL 10 MG CAPS Take 1 tablet by mouth daily DOXEPIN HCL 37412058790 No Longer Active Salina Han [facility] Active NAVANE 10 MG CAPS 1/2 tablet twice a day THIOTHIXENE No Longer Active Salina Han [facility] Active CYCLOBENZAPRINE HCL 10 MG TABS 1/2 tablet by mouth every 8 hours as needed for muscle spasms CYCLOBENZAPRINE HCL 29299643314 No Longer Active Alina Castaneda MD PhD Active BACTROBAN 2 % CREAM apply to ear and nose twice daily MUPIROCIN CALCIUM 45088389021 No Longer Active Alina Castaneda MD PhD Active HYDROCODONE-ACETAMINOPHEN 5-325 MG TABS take one tablet by mouth every four hours as needed for pain HYDROCODONE-ACETAMINOPHEN 02128431992 No Longer Active lAina Castaneda MD PhD Active ZOLPIDEM TARTRATE 10 MG TABS take at bedtime ZOLPIDEM TARTRATE 18020933990 Active Alina Castaneda MD PhD Active ZYPREXA 5 MG TABS take one tablet by mouth every evening OLANZAPINE 46199881299 No Longer Active Alina Castaneda MD PhD Active ALBUTEROL SULFATE 0.083 % NEBU SOLN one vial per nebulizer TID and PRN cough/ soa ALBUTEROL SULFATE 46962357147 No Longer Active Alina Castaneda MD PhD Active GUAIFENESIN 600 MG MU25X-NDN 1 tablet by mouth twice daily if needed for cough GUAIFENESIN 26517808513 No Longer Active Marvel MARROQUIN Active AZITHROMYCIN 500 MG SOLR 1 po q day AZITHROMYCIN 27479801957 No Longer Active Alina Castaneda MD PhD Active METOPROLOL SUCCINATE 100 MG HE22L-OHG 1 by mouth daily for blood pressure METOPROLOL SUCCINATE 96883822337 Active Alina Castaneda MD PhD Active PROMETHAZINE-CODEINE 6.25-10 MG/5ML SYRP 1 tsp po q 6 hours prn cough PROMETHAZINE-CODEINE 96307501802 No Longer Active Alina Castaneda MD PhD Active CEFDINIR 300 MG CAPS by mouth twice a day CEFDINIR 76482668091 No Longer Active Alina Castaneda MD PhD Active METFORMIN HCL 500 MG [id number]-YKS Take 3 tablets by mouth everyday METFORMIN HCL 63563795888 No Longer Active Alina Castaneda MD PhD Active LEVEMIR 100 UNIT/ML SOLN 90 units SQ qHS INSULIN DETEMIR 05610589965 No Longer Active Marvel MARROQUIN Active TOPROL XL 100 MG BP30W-ZXQ 1 @ HS METOPROLOL SUCCINATE 74635001331 No Longer Active Marvel MARROQUIN Active ALLOPURINOL 300 MG TABS Take one by mouth daily ALLOPURINOL 29859550169 Active Alina Castaneda MD PhD Active ZYPREXA 10 MG TABS Take one by mouth daily OLANZAPINE 64891830388 No Longer Active Alina Castandea MD PhD Active NOVOLOG 100 UNIT/ML SOLN 40 units with every meal INSULIN ASPART 68912159564 No Longer Active Alina Castaneda MD PhD Active VERAPAMIL HCL CR 120 MG TAB CR 1 qPM VERAPAMIL HCL 99750708756 No Longer Active Salina Han [facility] Active ZYPREXA 15 MG TABS Take 1 tablet by mouth daily OLANZAPINE 68093775073 No Longer Active Marvel Mackenzieanca SIDE LASTER TACK Active LISINOPRIL 20 MG TABS 1 BID LISINOPRIL 72736191472 Active Alina Castaneda MD PhD Active ALBUTEROL SULFATE (2.5 MG/3ML) 0.083% NEBU 1 neb tid and prn cough ALBUTEROL SULFATE 30776653618 No Longer Active Alina Castaneda MD PhD Active FLUVOXAMINE MALEATE 100 MG TABS Take one (1) tablet by mouth am, 1/2 at noon, 1 pm FLUVOXAMINE MALEATE 99829428034 Active Alina Castaneda MD PhD Active TRAVATAN Z 0.004 % SOLN 1 gtt each eye daily TRAVOPROST 49026527407 Active CRYSTAL Suarez Active LANTUS 100 UNIT/ML SOLN 60 units sq q hs INSULIN GLARGINE 10718056262 No Longer Active CRYSTAL Suarez Active ALBUTEROL SULFATE (2.5 MG/3ML) 0.083% NEBU 1 neb tid and prn cough ALBUTEROL SULFATE (2.5 MG/3ML) 0.083% NEBU 532151 ALBUTEROL SULFATE Inactive ZYPREXA 15 MG TABS Take 1 tablet by mouth daily ZYPREXA 15 MG TABS 718252 OLANZAPINE Inactive VERAPAMIL HCL CR 120 MG TAB CR 1 qPM VERAPAMIL HCL CR 120 MG TAB CR VERAPAMIL HCL Inactive ZYPREXA 10 MG TABS Take one by mouth daily ZYPREXA 10 MG TABS 898482 OLANZAPINE Inactive TOPROL XL 100 MG [id number]-VCF 1 @ HS TOPROL XL 100 MG [id number] METOPROLOL SUCCINATE Inactive LEVEMIR 100 UNIT/ML SOLN 90 units SQ qHS LEVEMIR 100 UNIT/ML SOLN INSULIN DETEMIR Inactive PROMETHAZINE-CODEINE 6.25-10 MG/5ML SYRP 1 tsp po q 6 hours prn cough PROMETHAZINE-CODEINE 6.25-10 MG/5ML SYRP 906848 PROMETHAZINE- CODEINE Inactive GUAIFENESIN 600 MG WE19U-BMR 1 tablet by mouth twice daily if needed for cough GUAIFENESIN 600 MG [id number] GUAIFENESIN Inactive ALBUTEROL SULFATE 0.083 % NEBU SOLN one vial per nebulizer TID and PRN cough/ soa ALBUTEROL SULFATE 0.083 % NEBU SOLN 388608 ALBUTEROL SULFATE Inactive ZYPREXA 5 MG TABS take one tablet by mouth every evening ZYPREXA 5 MG TABS 728099 OLANZAPINE Inactive HYDROCODONE-ACETAMINOPHEN 5-325 MG TABS take one tablet by mouth every four hours as needed for pain HYDROCODONE-ACETAMINOPHEN 5-325 MG TABS 083528 HYDROCODONE-ACETAMINOPHEN Inactive BACTROBAN 2 % CREAM apply to ear and nose twice daily BACTROBAN 2 % CREAM 430398 MUPIROCIN CALCIUM Inactive CYCLOBENZAPRINE HCL 10 MG TABS 1/2 tablet by mouth every 8 hours as needed for muscle spasms CYCLOBENZAPRINE HCL 10 MG TABS 742222 CYCLOBENZAPRINE HCL Inactive NAVANE 10 MG CAPS 1/2 tablet twice a day NAVANE 10 MG CAPS THIOTHIXENE Inactive DOXEPIN HCL 10 MG CAPS Take 1 tablet by mouth daily DOXEPIN HCL 10 MG CAPS 0280568 DOXEPIN HCL Inactive HYDROCODONE-ACETAMINOPHEN 7.5-325 MG TABS 1 four times a day as needed for pain HYDROCODONE-ACETAMINOPHEN 7.5-325 MG TABS 079005 HYDROCODONE-ACETAMINOPHEN Inactive NIACIN CR 500 MG CR-TABS 2 qHS NIACIN CR 500 MG CR- TABS NIACIN Inactive ORPHENADRINE CITRATE ER 100 MG [id number] 1 every 12 hr. as needed ORPHENADRINE CITRATE ER 100 MG [id number] ORPHENADRINE CITRATE Inactive ACETAMINOPHEN 500 MG TABS 2 Q 6 hr. PRN ACETAMINOPHEN 500 MG TABS 444767 ACETAMINOPHEN Inactive SAPHRIS 5 MG SUBL by mouth twice a day SAPHRIS 5 MG SUBL ASENAPINE MALEATE Inactive NIACIN ER 500 MG CR-TABS 4 qHS (for triglycerides) NIACIN ER 500 MG CR-TABS NIACIN Inactive IBUPROFEN 200 MG TABS 1 Q 6 hr. PRN IBUPROFEN 200 MG TABS 651974 IBUPROFEN Inactive FLUTICASONE PROPIONATE 50 MCG/ACT SUSP 2 sprays each nostril qDay x 30 days FLUTICASONE PROPIONATE 50 MCG/ACT SUSP 926472 FLUTICASONE PROPIONATE Inactive EQL TRUETEST TEST STRP Test blood sugar TID EQL TRUETEST TEST STRP GLUCOSE BLOOD Inactive TERESE CONTOUR TEST STRP monitor blood sugars 3x/day TERESE CONTOUR TEST STRP GLUCOSE BLOOD Inactive DETROL LA 4 MG [id number] Take 1 tablet by mouth daily DETROL LA 4 MG [id number]-NIY TOLTERODINE TARTRATE Inactive ZYPREXA 7.5 MG TABS 1 at HS ZYPREXA 7.5 MG TABS 982295 OLANZAPINE Inactive THIOTHIXENE 5 MG CAPS by mouth twice a day THIOTHIXENE 5 MG CAPS 772747 THIOTHIXENE Inactive UROXATRAL 10 MG [id number]-CTS Take 1 tablet by mouth daily UROXATRAL 10 MG GI72I-JMR ALFUZOSIN HCL Inactive ACYCLOVIR 400 MG ORAL TABS 1 pill three times daily x 5 days, for cold sore outbreak ACYCLOVIR 400 MG ORAL TABS 836989 ACYCLOVIR Inactive TRUETEST TEST STRP check sugars 4x/day TRUETEST TEST STRP GLUCOSE BLOOD Inactive HUMALOG 100 UNIT/ML SOLN Take 20 units with breakfast, 10u with lunch and suppetr. HUMALOG 100 UNIT/ML SOLN INSULIN LISPRO ( HUMAN) Inactive CYCLOBENZAPRINE HCL 10 MG TABS 1 tablet by mouth three times daily, scheduled CYCLOBENZAPRINE HCL 10 MG TABS 807289 CYCLOBENZAPRINE HCL Inactive ACCU-CHEK ROSA INVITR STRP use strips with device to check blood sugars 3 times daily ACCU-CHEK ROSA INVITR STRP GLUCOSE BLOOD Inactive ACCU-CHEK ROSA UZMA Use device to check blood sugars ACCU-CHEK ROSA UZMA BLOOD GLUCOSE MONITORING SUPPL Inactive CEFDINIR 300 MG CAPS by mouth twice a day CEFDINIR 300 MG CAPS 027782 CEFDINIR Inactive AZITHROMYCIN 500 MG SOLR 1 po q day AZITHROMYCIN 500 MG SOLR 452601 AZITHROMYCIN Inactive AMOXICILLIN 500 MG CAPS 2 po BID x 10 days AMOXICILLIN 500 MG CAPS 812487 AMOXICILLIN Inactive PENICILLIN V POTASSIUM 500 MG TABS 1 pill by mouth three times daily PENICILLIN V POTASSIUM 500 MG TABS 099060 PENICILLIN V POTASSIUM Inactive Immunizations Vaccine Administration [...] Fluvirin, Fluarix, Agriflu(>=18 yo)) Fluzone (>3 yrs.) [[id number]] Influenza, seasonal, injectable pneumococcal immunization administered Pneumovax [...] HGBA1C - Chemistry sodium, serum 130 mmol/L 634-383 5223/06/09 potassium, serum 4.0 mmol/L 3.5-5.2 chloride, serum 92 mmol/L 98-107 carbon dioxide, venous blood 22.1 mmol/L 21.0-32.0 blood glucose 60 mg/dL 65-110 calcium, serum 9.5 mg/dL 8.5-10.1 urea nitrogen, blood 14 mg/dL 7-18 creatinine, serum 1.30 mg/dL 0.60-1.30 hemoglobin A1C, blood, as % of total hemoglobin 6.0 % 4.3-6.0 sodium, serum 131 mmol/L 719-343 2624/12/30 urea nitrogen, blood 12 mg/dL 7-18 creatinine, serum 1.10 mg/dL 0.60-1.30 hemoglobin A1C, blood, as % of total hemoglobin 5.8 % 4.3-6.0 potassium, serum 5.0 mmol/L 3.5-5.2 chloride, serum 95 mmol/L 98-107 carbon dioxide, venous blood 26.7 mmol/L 21.0-32.0 blood glucose 112 mg/dL 65-110 calcium, serum 9.2 mg/dL 8.5-10.1 Lab Report: CBC, CMP, Lipid Panel, TSH, PSA, microalbumin, uric acid - Chemistry albumin/creatinine ratio, urine < 30 mg/g mg/g{creat} 0-29 uric acid, serum 6.0 mg/dL 2.6-7.2 sodium, serum 130 mmol/L 895-541 5970/05/01 potassium, serum 5.2 mmol/L 3.5-5.2 chloride, serum [...] 0.40 mg/dL 0.00-1.00 cholesterol, serum 151 mg/dL 350-049 3070/05/01 triglyceride, serum, fasting 356 mg/dL 30-200 HDL [...] Lab Report: Comp. Metabolic Panel - Chemistry carbon dioxide, venous blood 27.4 mmol/L 21.0-32.0 chloride, serum 89 mmol/L 98-107 potassium, serum 4.1 mmol/L 3.5-5.2 sodium, serum 127 mmol/L 716-455 9810/10/27 urea nitrogen, blood 11 mg/dL 7-18 blood glucose 100 mg/dL 65-110 creatinine, serum 1.10 mg/dL 0.60-1.30 alanine aminotransferase [...] mg/dL Encounters Code Encounter Date Provider Facility CPT-59727 Level 3 Est. Patient 12:57:49 CDT Vanessa Hickey MD [facility] CPT-81384 Level 3 Est. Patient 00:28:25 CDT Alina Castaneda MD PhD [facility] CPT-22079 Level 2 Est. Patient 12:52:14 CDT Alina Castaneda MD PhD [facility] CPT-93066 Level 3 Est. Patient 11:51:18 ABSORBER OPERATOR Alina Castaneda MD PhD [facility] CPT-37416 Level 3 Est. Patient 10:09:22 ABSORBER OPERATOR Alina Castaneda MD [facility]-31557 Level 3 Est. Patient 14:36:26 ABSORBER OPERATOR Marvel Charles [facility]-90344 Level 3 Est. Patient 13:34:47 ABSORBER OPERATOR Alina Castaneda MD [facility] [facility] [place] Level 3 Est. Patient 19:52:08 ABSORBER OPERATOR Alina Castaneda MD [facility] [place] [facility] [place] Level 3 Est. Patient 10:01:51 ABSORBER OPERATOR [facility]-53071 Level 3 Est. Patient 21:54:06 CDT Vanessa Hickey MD [facility]-98468 Level 3 Est. Patient 08:54:46 CDT Alina Castaneda MD [facility] [place] Level 3 Est. Patient 09:32:11 CDT Marvel Charles [facility]-50264 Level 3 Est. Patient 12:02:49 CDT Alina Castaneda MD [facility] [place] Level 3 Est. Patient 19:17:33 CDT Alina Castaneda MD [facility] [place] Level 3 Est. Patient 13:19:10 CDT Marvel Charles [facility]86413 Level 3 Est. Patient 08:20:05 CDT Alina Castaneda MD [facility] [place] [facility] [place] Level 3 Est. Patient 15:17:18 CDT Alina Castaneda MD [facility] [place] [facility] [place] Level 3 Est. Patient 14:25:36 ABSORBER OPERATOR Marvel Charles [facility]15770 Level 3 Est. Patient 10:09:15 ABSORBER OPERATOR Marvel Thurstonestela [facility] [place] CPT-85604 Level 3 Est. Patient 21:28:43 CDT Alina Castaneda MD [facility]-07878 Level 3 Est. Patient 15:20:11 [facility] Level 4 Est. Patient 19:08:12 CDT Alina Castaneda MD [facility]-60885 Level 3 Est. Patient 15:06:39 CDT Marvel Thurstonestela [facility]-67369 Level 4 Est. Patient 17:48:15 CDT Alina Castaneda MD [facility]-14075 Level 3 Est. Patient 14:53:49 CDT Alina Castaneda MD [facility]-09390 Level 3 Est. Patient 09:35:16 CDT Alina Castaneda MD [facility]-86044 Level 3 Est. Patient 12:23:22 CDT Alina Castaneda MD [facility]-14300 Level 3 Est. Patient 16:19:15 CDT Alina Castaneda MD [facility]-91451 Level 3 Est. Patient 21:39:56 ABSORBER OPERATOR Alina Castaneda MD [facility]-80113 Level 4 Est. Patient 14:12:56 ABSORBER OPERATOR Alina Castaneda MD [facility]-70010 Level 2 Est. Patient 15:34:57 ABSORBER OPERATOR Alina Castaneda MD [facility]-51122 Level 3 Est. Patient 12:17:04 ABSORBER OPERATOR Alina Castaneda MD [facility]-83338 Level 3 Est. Patient 09:18:18 ABSORBER OPERATOR Brook[facility]ivia Araceli [facility]-81943 Level 2 Est. Patient 21:50:24 CDT Alina Castaneda MD [facility]-71608 Level 3 Est. Patient 09:17:28 CDT Marvel Charles [facility]-88807 Level 4 Est. Patient 18:54:02 CDT Alina Castaneda MD [facility] [place] [facility] [place] Level 3 Est. Patient 10:47:10 CDT Alina Castaneda MD [facility] [place] [facility] [place] Level 3 Est. Patient 09:22:20 CDT Marvel Charles [facility]-60113 Level 3 Est. Patient 16:39:43 CDT Brooksjohn Charles [facility]-76639 Level 3 Est. Patient 16:05:16 CDT Alina Castaneda MD [facility]-54278 Level 3 Est. Patient 00:29:15 CDT Alina Castaneda MD [facility] [place] [facility] [place] Level 3 Est. Patient 10:49:22 ABSORBER OPERATOR Brooksjohn Charles [facility]-50544 Level 3 Est. Patient 21:30:19 ABSORBER OPERATOR Alina Castaneda MD [facility]-48606 Level 4 Est. Patient 17:04:11 ABSORBER OPERATOR Marvel Chalres [facility]-45509 Level 3 Est. Patient 15:34:11 ABSORBER OPERATOR Marvel Charles [facility]-39100 Level 2 Est. Patient 12:51:58 ABSORBER OPERATOR Alina Castaneda MD [facility] [place] Level 3 Est. Patient 13:20:01 ABSORBER OPERATOR Alina Castaneda MD PhD [facility] CPT-73348 Level 3 Est. Patient 09:23:35 CDT Alina Castaneda MD PhD [facility] Procedures Code Procedure Name Date Entry Date Standard Description CPT-42812 Bladder Scan 21:54:06 CDT CPT-G0008 Administration of Influenza Virus Vaccine 13:05:26 CDT CPT-82321 Fluzone Quadrivalent Intramuscular Suspension 0.5 ML 13: 05:26 CDT CPT-24958 Administration single or combination vaccine inc oral 11 :49:51 CDT CPT-61482 Pneumovax 11:49:51 CDT CPT-44190 Ribs unilateral 2V 12:37:22 ABSORBER OPERATOR CPT-10179 Chest 2V Frontal and Lat 17:15:26 CDT CPT-70056 Abx/Therapy Injection 18:54:02 CDT CPT-J0696 Rocephin 1000 mg (Ceftriaxone) 16:00:32 CDT CPT-03455 Chest 2V Frontal and Lat 15:26:45 CDT CPT-95263 Chest 2V Frontal and Lat 10:23:27 CDT CPT-14836 Venipuncture Draw Fee 10:11:00 CDT CPT-55584 Administration single or combination vaccine inc oral 11 :56:38 CDT CPT-03828 Influenza split virus > age 3 11:56:38 CDT CPT-36642 Venipuncture Draw Fee 08:49:54 ABSORBER OPERATOR CPT-93617 EKG Trac and Interp 17:54:19 ABSORBER OPERATOR
--- OUTSIDE RECORDS SUMMARY | 2018-07-02 17:22 | XMS REPORT | Clinical Summary ---
Author Author Admin, TERELL Organization [facility] [email or web address] Address Unknown Phone Unavailable Allergies, Adverse Reactions, 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 Erazo [employer] ATTACHER Benign paroxysmal positional vertigo Vertigo, benign paroxysmal position 386.11 Inactive Mima Erazo [employer] ATT[employer]ER Benign paroxysmal positional vertigo High-risk sexual behavior V69.2 Active Alina Castaneda MD PhD High-risk sexual behavior Erectile dysfunction 302.72 Active Alina Castaneda MD PhD Psychosexual dysfunction with inhibited sexual excitement Constipation 564.00 Active Alina Castaneda MD PhD Constipation, unspecified Skin lesion 709.9 Active Alina Castaneda MD PhD Unspecified disorder of skin and subcutaneous tissue Malaise and fatigue 780.79 Active Cherelle Speaks [employer] ATTACHER Other malaise and fatigue Diarrhea 787.91 Active Cherelle Speaks [employer] ATTACHER Diarrhea PHARYNGITIS 462 Active Cherelle Speaks [employer] ATTACHER Acute pharyngitis Colitis 558.9 Active Mima Erazo [employer] ATTACHER Other and unspecified noninfectious gastroenteritis and colitis [...] CAPS Take one by mouth daily CHOLECALCIFEROL 29135812692 Active Mima Yokum [employer] ATT[employer]ER Active LATUDA 60 MG ORAL TABS Take one by mouth daily LURASIDONE HCL 83995850356 No Longer Active Mima Yokum [employer] ATTACHER Active HUMALOG KWIKPEN 100 UNIT/ML SC SOPN sliding scale if needed INSULIN LISPRO (HUMAN) 15912932666 Active Mima Yokum [employer] ATTACHER Active MORPHINE SULFATE 30 MG ORAL TABS by mouth twice a day MORPHINE SULFATE 59064606880 Active Salina Han [facility] Active TRAZODONE HCL 100 MG TABS 1 every night to prevent headaches TRAZODONE HCL 16170144998 Active Gabrielle Madl PRODUCTION ZONE LEADER Active LATUDA 60 MG ORAL TABS 1 tab daily LURASIDONE HCL 49213676776 Active Gabrielle Madl PRODUCTION ZONE LEADER Active CLONAZEPAM 1 MG TABS 1 pill by mouth three times daily CLONAZEPAM 82406073090 Active Gabrielle Madl PRODUCTION ZONE LEADER Active [facility] MILK OF MAGNESIA 400 MG/5ML ORAL SUSP 30ml by mouth bid prn MAGNESIUM HYDROXIDE 19382235497 Active Mason Loredo MD Active TYLENOL 8 HOUR 650 MG ORAL CR-TABS 1 tab QID prn ACETAMINOPHEN 66696099805 Active Mason Loredo MD Active MYLANTA GAS RELIEF MAXIMUM STR 125 MG ORAL CAPS 30cc every 4 hours prn 12/01 SIMETHICONE 27487447723 Active Mason Loredo MD Active IMODIUM A-D 2 MG ORAL TABS 1 tab QID as needed LOPERAMIDE HCL 41805118601 Active Mason Loredo MD Active FLUVOXAMINE MALEATE 50 MG ORAL TABS 1 tab by mouth daily FLUVOXAMINE MALEATE 09369223181 Active Mason Loredo MD Active TRAVATAN Z 0.004 % SOLN 1 gtt each eye daily TRAVOPROST 47288009055 No Longer Active Mason Loredo MD Active LISINOPRIL 20 MG TABS 1 BID LISINOPRIL 32474972910 No Longer Active Mason Loredo MD Active LEVEMIR FLEXTOUCH 100 UNIT/ML SC SOPN 60 units SQ each evening, for diabetes INSULIN DETEMIR 87277153579 Active Desi Nicholson Active ZOLPIDEM TARTRATE 10 MG TABS take at bedtime ZOLPIDEM TARTRATE 75319387975 No Longer Active Mason Loredo MD Active HYDROCODONE-ACETAMINOPHEN 5-325 MG TABS 2 tabs by mouth three times daily for pain HYDROCODONE-ACETAMINOPHEN 68728060549 No Longer Active Mason Loredo MD Active ZOFRAN 4 MG TABS 1 po q4hr PRN Nausea ONDANSETRON HCL 26810394746 No Longer Active Mason Loredo MD Active LOMOTIL 2.5-0.025 MG ORAL TABS take 1-2 tabs PO after each stool, no more than 8 in 24 hours DIPHENOXYLATE-ATROPINE 21038789991 No Longer Active Mason Loredo MD Active COLACE 100 MG CAPS 1 pill by mouth twice daily, for constipation DOCUSATE SODIUM 75848411769 No Longer Active Mima Kacey [place] Active FLONASE ALLERGY RELIEF 50 MCG/ACT NASAL SUSP One spray each nostril BID x 1 week then daily FLUTICASONE PROPIONATE 06120705721 Active Mima Erazo APRN Active BD PEN NEEDLE MINI U/F 31G X 5 MM MISC 4 a day INSULIN PEN NEEDLE 15821319877 Active Marvel Bertrandari SAGGER MAKER Active AMITIZA 24 MCG ORAL CAPS Take one capsule BID for constipation LUBIPROSTONE 70968534421 Active Mima Erazo [employer] ATT[employer]ER Active TRUEPLUS LANCETS 30G MISC 3 a day LANCETS 19558779094 Active Marvel 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 SAGGER MAKER Active TOLTERODINE TARTRATE 2 MG TABS 1 pill twice daily, for bladder TOLTERODINE TARTRATE 57450312482 No Longer Active Vanessa Hickey MD Active AMITIZA 24 MCG ORAL CAPS Take one capsule BID for constipation. LUBIPROSTONE 51805155898 No Longer Active Vanessa Hickey MD Active FLUVOXAMINE MALEATE 100 MG ORAL TABS take one tab every AM et HS, and take 1/ 2 tab at noon FLUVOXAMINE MALEATE 49833792276 Active Grace Azam RMA Active METOPROLOL SUCCINATE 100 MG [id number] 1 by mouth daily for blood pressure METOPROLOL SUCCINATE 95562743502 No Longer Active Grace Azam RMA Active METFORMIN HCL ER 500 MG [id number] Take three tablets by mouth everyday METFORMIN HCL 81080713810 No Longer Active Grace Azam RMA Active LOVAZA 1 GM CAPS 4 daily (for triglycerides) OMEGA-3- ACID ETHYL ESTERS 60710914889 No Longer Active Grace Azam RMA Active TRAZODONE HCL 100 MG ORAL TABS 1 tab by mouth for sleep TRAZODONE HCL 58857242710 No Longer Active Grace Azam RMA Active NOVOFINE 32G X 6 MM MISC use one four times per day INSULIN PEN NEEDLE 89451999271 No Longer Active Grace Azam RMA Active BACTROBAN 2 % CREAM Apply to affected area BID for up to 10 days MUPIROCIN CALCIUM 96831288908 No Longer Active Grace Nelsonb RMA Active KEFLEX 500 MG CAP 1 po BID x 7 days CEPHALEXIN 27950888009 No Longer Active Cherelle Speaks [employer] ATT[employer]ER Active FLUVOXAMINE MALEATE 100 MG TABS Take one (1) tablet by mouth am, 1/2 at noon FLUVOXAMINE MALEATE 96495491547 No Longer Active Mima Erazo [employer] ATTACHER Active CORICIDIN HBP CONGESTION/COUGH 10-200 MG ORAL CAPS Take as directed on box as needed for cold/flu symptoms DEXTROMETHORPHAN-GUAIFENESIN 00614723905 Active Cherelle Speaks [employer] ATTACHER Active OMEGA-3 300 MG ORAL CAPS 4 caps by mouth daily OMEGA-3 FATTY ACIDS 10753087040 Active Mima Erazo [employer] ATTACHER Active FLUVOXAMINE MALEATE 100 MG ORAL TABS Take 1/2 tab at noon FLUVOXAMINE MALEATE 89478769389 No Longer Active Cherelle Austin [employer] ATTACHER Active [facility] LUBRICANT EYE DROPS 0.4-0.3 % OPHTH SOLN POLYETHYL GLYCOL-PROPYL GLYCOL 01105479443 Active Mima Erazo [employer] ATT[employer]ER Active MIRALAX POWD 17g by mouth daily, for constipation POLYETHYLENE GLYCOL 3350 46261320574 Active Alina Castaneda MD PhD Active TRUETEST TEST STRP check blood sugars 3x/day GLUCOSE BLOOD 70419062693 Active Maliheh Ziglari SAGGER MAKER Active ACCU-CHEK ROSA UZMA Use device to check blood sugars BLOOD GLUCOSE MONITORING SUPPL 98221927761 No Longer Active Maliheh Ziglari SAGGER MAKER Active ACCU-CHEK ROSA INVITR STRP use strips with device to check blood sugars 3 times daily GLUCOSE BLOOD 50476066996 No Longer Active Maliheh Ziglari SAGGER MAKER Active VERAPAMIL HCL ER 180 MG ORAL CR-TABS 1 pill by mouth twice daily, for migraine prevention VERAPAMIL HCL 21989123248 Active CRYSTAL Rodrigues Active CYCLOBENZAPRINE HCL 10 MG TABS 1 tablet by mouth three times daily, scheduled CYCLOBENZAPRINE HCL 15223013111 No Longer Active Alina Castaneda MD PhD Active HUMALOG 100 UNIT/ML SOLN Take 20 units with breakfast, 10u with lunch and suppetr. INSULIN LISPRO (HUMAN) 43670905161 No Longer Active Alina Castaneda MD PhD Active TRUETEST TEST STRP check sugars 4x/day GLUCOSE BLOOD 09635495738 No Longer Active Alina Castaneda MD PhD Active MORPHINE SULFATE 30 MG TABS 1 pill by mouth twice daily, for pain MORPHINE SULFATE 10028738752 No Longer Active Mason Loredo MD Active ACYCLOVIR 400 MG ORAL TABS 1 pill three times daily x 5 days, for cold sore outbreak ACYCLOVIR 54490177816 No Longer Active Alina Castaneda MD PhD Active PENICILLIN V POTASSIUM 500 MG TABS 1 pill by mouth three times daily PENICILLIN V POTASSIUM 56952475898 No Longer Active Alina Castaneda MD PhD Active UROXATRAL 10 MG [id number]-VND Take 1 tablet by mouth daily ALFUZOSIN HCL 69943673839 No Longer Active Alina Castaneda MD PhD Active THIOTHIXENE 5 MG CAPS by mouth twice a day THIOTHIXENE 46465332609 No Longer Active Alina Castaneda MD PhD Active ZYPREXA 7.5 MG TABS 1 at HS OLANZAPINE 87061812321 No Longer Active Alina Castaneda MD PhD Active BD INSULIN SYRINGE 28G X 1/2" 1 ML MISC 1 four times per day INSULIN SYRINGE-NEEDLE U-100 72335963500 Active Marvel Mackenzieglestela SAGGER MAKER Active DETROL LA 4 MG [id number] Take 1 tablet by mouth daily TOLTERODINE TARTRATE 94906861591 No Longer Active Alina Castaneda MD PhD Active TERESE CONTOUR TEST STRP monitor blood sugars 3x/day GLUCOSE BLOOD 18021961169 No Longer Active Alina Castaneda MD PhD Active EQL TRUETEST TEST STRP Test blood sugar TID GLUCOSE BLOOD 88084921234 No Longer Active Alina Castaneda MD PhD Active FLUTICASONE PROPIONATE 50 MCG/ACT SUSP 2 sprays each nostril qDay x 30 days FLUTICASONE PROPIONATE 34400737393 No Longer Active Alina Castaneda MD PhD Active IBUPROFEN 200 MG TABS 1 Q 6 hr. PRN IBUPROFEN 56263472794 No Longer Active Alina Castaneda MD PhD Active NIACIN ER 500 MG CR-TABS 4 qHS (for triglycerides) NIACIN 54423231698 No Longer Active Alina Castaneda MD PhD Active ALFUZOSIN HCL ER 10 MG [id number] 1 tablet daily ALFUZOSIN HCL 41178731558 Active CRYSTAL Rodrigues Active SAPHRIS 5 MG SUBL by mouth twice a day ASENAPINE MALEATE 29238637356 No Longer Active Maljohn Ziglestela MENDOZAP Active ACETAMINOPHEN 500 MG TABS 2 Q 6 hr. PRN ACETAMINOPHEN 54405132946 No Longer Active Mallashondaeh 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 SAGGER MAKER Active ORPHENADRINE CITRATE ER 100 MG [id number] 1 every 12 hr. as needed ORPHENADRINE CITRATE 04685529951 No Longer Active Alina Castaneda MD PhD Active NIACIN CR 500 MG CR-TABS 2 qHS NIACIN 40018408644 No Longer Active Alina Castaneda MD PhD Active AMOXICILLIN 500 MG CAPS 2 po BID x 10 days AMOXICILLIN 66650046861 No Longer Active Alina Castaneda MD PhD Active HYDROCODONE-ACETAMINOPHEN 7.5-325 MG TABS 1 four times a day as needed for pain HYDROCODONE-ACETAMINOPHEN 16629381997 No Longer Active Alina Castaneda MD PhD Active DOXEPIN HCL 10 MG CAPS Take 1 tablet by mouth daily DOXEPIN HCL 85243651100 No Longer Active Salina Han [facility] Active NAVANE 10 MG CAPS 1/2 tablet twice a day THIOTHIXENE No Longer Active Salina Han A Active CYCLOBENZAPRINE HCL 10 MG TABS 1/2 tablet by mouth every 8 hours as needed for muscle spasms CYCLOBENZAPRINE HCL 87958818529 No Longer Active Alina Castaneda MD PhD Active BACTROBAN 2 % CREAM apply to ear and nose twice daily MUPIROCIN CALCIUM 80176231517 No Longer Active Alina Castaneda MD PhD Active HYDROCODONE-ACETAMINOPHEN 5-325 MG TABS take one tablet by mouth every four hours as needed for pain HYDROCODONE-ACETAMINOPHEN 66113071967 No Longer Active Alina Castaneda MD PhD Active ZYPREXA 5 MG TABS take one tablet by mouth every evening OLANZAPINE 05691633199 No Longer Active Alina Castaneda MD PhD Active ALBUTEROL SULFATE 0.083 % NEBU SOLN one vial per nebulizer TID and PRN cough/ soa ALBUTEROL SULFATE 59175473462 No Longer Active Alina Castaneda MD PhD Active GUAIFENESIN 600 MG [id number] 1 tablet by mouth twice daily if needed for cough GUAIFENESIN 50366339612 No Longer Active Marvel Charles [facility] Active AZITHROMYCIN 500 MG SOLR 1 po q day AZITHROMYCIN 39565223537 No Longer Active Alina Castaneda MD PhD Active PROMETHAZINE-CODEINE 6.25-10 MG/5ML SYRP 1 tsp po q 6 hours prn cough PROMETHAZINE-CODEINE 67961944354 No Longer Active Alina Castaneda MD PhD Active CEFDINIR 300 MG CAPS by mouth twice a day CEFDINIR 88080666566 No Longer Active Alina Castaneda MD PhD Active METFORMIN HCL 500 MG [id number]-GIS Take 3 tablets by mouth everyday METFORMIN HCL 52901697424 No Longer Active Alina Castaneda MD PhD Active LEVEMIR 100 UNIT/ML SOLN 90 units SQ qHS INSULIN DETEMIR 96083921235 No Longer Active Marvel MARROQUIN Active TOPROL XL 100 MG CP53H-NOH 1 @ HS METOPROLOL SUCCINATE 26392394824 No Longer Active Marvel MARROQUIN Active ALLOPURINOL 300 MG TABS Take one by mouth daily ALLOPURINOL 95400068689 Active Mimacecily Fierroum [employer] ATTACHER Active ZYPREXA 10 MG TABS Take one by mouth daily OLANZAPINE 29670666169 No Longer Active Alina Castaneda MD PhD Active NOVOLOG 100 UNIT/ML SOLN 40 units with every meal INSULIN ASPART 49224803151 No Longer Active Alina Castaneda MD PhD Active VERAPAMIL HCL CR 120 MG TAB CR 1 qPM VERAPAMIL HCL 54183377114 No Longer Active Salina ROJAS Active ZYPREXA 15 MG TABS Take 1 tablet by mouth daily OLANZAPINE 21547463541 No Longer Active Marvel MARROQUIN Active ALBUTEROL SULFATE (2.5 MG/3ML) 0.083% NEBU 1 neb tid and prn cough ALBUTEROL SULFATE 15358995810 No Longer Active Alina Castaneda MD PhD Active LANTUS 100 UNIT/ML SOLN 60 units sq q hs INSULIN GLARGINE 45754632787 No Longer Active CRYSTAL Suarez Active ALBUTEROL SULFATE (2.5 MG/3ML) 0.083% NEBU 1 neb tid and prn cough ALBUTEROL SULFATE (2.5 MG/3ML) 0.083% NEBU 176386 ALBUTEROL SULFATE Inactive ZYPREXA 15 MG TABS Take 1 tablet by mouth daily ZYPREXA 15 MG TABS 657047 OLANZAPINE Inactive VERAPAMIL HCL CR 120 MG TAB CR 1 qPM VERAPAMIL HCL CR 120 MG TAB CR VERAPAMIL HCL Inactive ZYPREXA 10 MG TABS Take one by mouth daily ZYPREXA 10 MG TABS 435413 OLANZAPINE Inactive TOPROL XL 100 MG [id number] 1 @ HS TOPROL XL 100 MG NL90H-VDJ METOPROLOL SUCCINATE Inactive LEVEMIR 100 UNIT/ML SOLN 90 units SQ qHS LEVEMIR 100 UNIT/ML SOLN INSULIN DETEMIR Inactive PROMETHAZINE-CODEINE 6.25-10 MG/5ML SYRP 1 tsp po q 6 hours prn cough PROMETHAZINE-CODEINE 6.25-10 MG/5ML SYRP 491691 PROMETHAZINE- CODEINE Inactive GUAIFENESIN 600 MG VP69B-LCT 1 tablet by mouth twice daily if needed for cough GUAIFENESIN 600 MG [id number]-YBI GUAIFENESIN Inactive ALBUTEROL SULFATE 0.083 % NEBU SOLN one vial per nebulizer TID and PRN cough/ soa ALBUTEROL SULFATE 0.083 % NEBU SOLN 200070 ALBUTEROL SULFATE Inactive ZYPREXA 5 MG TABS take one tablet by mouth every evening ZYPREXA 5 MG TABS 007991 OLANZAPINE Inactive HYDROCODONE-ACETAMINOPHEN 5-325 MG TABS take one tablet by mouth every four hours as needed for pain HYDROCODONE-ACETAMINOPHEN 5-325 MG TABS 679161 HYDROCODONE-ACETAMINOPHEN Inactive BACTROBAN 2 % CREAM apply to ear and nose twice daily BACTROBAN 2 % CREAM 926435 MUPIROCIN CALCIUM Inactive CYCLOBENZAPRINE HCL 10 MG TABS 1/2 tablet by mouth every 8 hours as needed for muscle spasms CYCLOBENZAPRINE HCL 10 MG TABS 198288 CYCLOBENZAPRINE HCL Inactive NAVANE 10 MG CAPS 1/2 tablet twice a day NAVANE 10 MG CAPS THIOTHIXENE Inactive DOXEPIN HCL 10 MG CAPS Take 1 tablet by mouth daily DOXEPIN HCL 10 MG CAPS 2078292 DOXEPIN HCL Inactive HYDROCODONE-ACETAMINOPHEN 7.5-325 MG TABS 1 four times a day as needed for pain HYDROCODONE-ACETAMINOPHEN 7.5-325 MG TABS 902720 HYDROCODONE-ACETAMINOPHEN Inactive NIACIN CR 500 MG CR-TABS 2 qHS NIACIN CR 500 MG CR- TABS NIACIN Inactive ORPHENADRINE CITRATE ER 100 MG [id number] 1 every 12 hr. as needed ORPHENADRINE CITRATE ER 100 MG [id number] ORPHENADRINE CITRATE Inactive ACETAMINOPHEN 500 MG TABS 2 Q 6 hr. PRN ACETAMINOPHEN 500 MG TABS 826082 ACETAMINOPHEN Inactive SAPHRIS 5 MG SUBL by mouth twice a day SAPHRIS 5 MG SUBL ASENAPINE MALEATE Inactive NIACIN ER 500 MG CR-TABS 4 qHS (for triglycerides) NIACIN ER 500 MG CR-TABS NIACIN Inactive IBUPROFEN 200 MG TABS 1 Q 6 hr. PRN IBUPROFEN 200 MG TABS 011260 IBUPROFEN Inactive FLUTICASONE PROPIONATE 50 MCG/ACT SUSP 2 sprays each nostril qDay x 30 days FLUTICASONE PROPIONATE 50 MCG/ACT SUSP 601403 FLUTICASONE PROPIONATE Inactive EQL TRUETEST TEST STRP Test blood sugar TID EQL TRUETEST TEST STRP GLUCOSE BLOOD Inactive TERESE CONTOUR TEST STRP monitor blood sugars 3x/day TERESE CONTOUR TEST STRP GLUCOSE BLOOD Inactive DETROL LA 4 MG [id number] Take 1 tablet by mouth daily DETROL LA 4 MG [id number]-[id number] TOLTERODINE TARTRATE Inactive ZYPREXA 7.5 MG TABS 1 at HS ZYPREXA 7.5 MG TABS 249751 OLANZAPINE Inactive THIOTHIXENE 5 MG CAPS by mouth twice a day THIOTHIXENE 5 MG CAPS 706797 THIOTHIXENE Inactive UROXATRAL 10 MG [id number]-PSB Take 1 tablet by mouth daily UROXATRAL 10 MG [id number]-FCJ ALFUZOSIN HCL Inactive ACYCLOVIR 400 MG ORAL TABS 1 pill three times daily x 5 days, for cold sore outbreak ACYCLOVIR 400 MG ORAL TABS 672561 ACYCLOVIR Inactive TRUETEST TEST STRP check sugars 4x/day TRUETEST TEST STRP GLUCOSE BLOOD Inactive HUMALOG 100 UNIT/ML SOLN Take 20 units with breakfast, 10u with lunch and suppetr. HUMALOG 100 UNIT/ML SOLN INSULIN LISPRO ( HUMAN) Inactive CYCLOBENZAPRINE HCL 10 MG TABS 1 tablet by mouth three times daily, scheduled CYCLOBENZAPRINE HCL 10 MG TABS 283331 CYCLOBENZAPRINE HCL Inactive ACCU-CHEK ROSA INVITR STRP use strips with device to check blood sugars 3 times daily ACCU-CHEK ROSA INVITR STRP GLUCOSE BLOOD Inactive ACCU-CHEK ROSA UZMA Use device to check blood sugars ACCU-CHEK ROSA UZMA BLOOD GLUCOSE MONITORING SUPPL Inactive FLUVOXAMINE MALEATE 100 MG ORAL TABS Take 1/2 tab at noon FLUVOXAMINE MALEATE 100 MG ORAL TABS 553779 FLUVOXAMINE MALEATE Inactive FLUVOXAMINE MALEATE 100 MG TABS Take one (1) tablet by mouth am, 1/2 at noon FLUVOXAMINE MALEATE 100 MG TABS 786993 FLUVOXAMINE MALEATE Inactive BACTROBAN 2 % CREAM Apply to affected area BID for up to 10 days BACTROBAN 2 % CREAM 862885 MUPIROCIN CALCIUM Inactive NOVOFINE 32G X 6 MM MISC use one four times per day NOVOFINE 32G X 6 MM MISC INSULIN PEN NEEDLE Inactive TRAZODONE HCL 100 MG ORAL TABS 1 tab by mouth for sleep TRAZODONE HCL 100 MG ORAL TABS 262866 TRAZODONE HCL Inactive LOVAZA 1 GM CAPS 4 daily (for triglycerides) LOVAZA 1 GM CAPS 165756 LAURQ-1-CTRJ ETHYL ESTERS Inactive METFORMIN HCL ER 500 MG AH15G-FVO Take three tablets by mouth everyday METFORMIN HCL ER 500 MG [id number]-HXY METFORMIN HCL Inactive METOPROLOL SUCCINATE 100 MG LA98K-OUN 1 by mouth daily for blood pressure METOPROLOL SUCCINATE 100 MG LG86M-LXA METOPROLOL SUCCINATE Inactive AMITIZA 24 MCG ORAL CAPS Take one capsule BID for constipation. AMITIZA 24 MCG ORAL CAPS LUBIPROSTONE Inactive TOLTERODINE TARTRATE 2 MG TABS 1 pill twice daily, for bladder TOLTERODINE TARTRATE 2 MG TABS 862570 TOLTERODINE TARTRATE Inactive COLACE 100 MG CAPS 1 pill by mouth twice daily, for constipation COLACE 100 MG CAPS 5665881 DOCUSATE SODIUM Inactive LOMOTIL 2.5-0.025 MG ORAL TABS take 1-2 tabs PO after each stool, no more than 8 in 24 hours LOMOTIL 2.5-0.025 MG ORAL TABS 2824059 DIPHENOXYLATE-ATROPINE Inactive ZOFRAN 4 MG TABS 1 po q4hr PRN Nausea ZOFRAN 4 MG TABS 615388 ONDANSETRON HCL Inactive HYDROCODONE-ACETAMINOPHEN 5-325 MG TABS 2 tabs by mouth three times daily for pain HYDROCODONE-ACETAMINOPHEN 5-325 MG TABS 054705 HYDROCODONE-ACETAMINOPHEN Inactive ZOLPIDEM TARTRATE 10 MG TABS take at bedtime ZOLPIDEM TARTRATE 10 MG TABS 061790 ZOLPIDEM TARTRATE Inactive LISINOPRIL 20 MG TABS 1 BID LISINOPRIL 20 MG TABS 493444 LISINOPRIL Inactive TRAVATAN Z 0.004 % SOLN 1 gtt each eye daily TRAVATAN Z 0.004 % SOLN TRAVOPROST Inactive LATUDA 60 MG ORAL TABS Take one by mouth daily LATUDA 60 MG ORAL TABS LURASIDONE HCL Inactive CEFDINIR 300 MG CAPS by mouth twice a day CEFDINIR 300 MG CAPS 091976 CEFDINIR Inactive AZITHROMYCIN 500 MG SOLR 1 po q day AZITHROMYCIN 500 MG SOLR 07569262339 AZITHROMYCIN Inactive AMOXICILLIN 500 MG CAPS 2 po BID x 10 days AMOXICILLIN 500 MG CAPS 171969 AMOXICILLIN Inactive PENICILLIN V POTASSIUM 500 MG TABS 1 pill by mouth three times daily PENICILLIN V POTASSIUM 500 MG TABS 480198 PENICILLIN V POTASSIUM Inactive KEFLEX 500 MG CAP 1 po BID x 7 days KEFLEX 500 MG CAP 809288 CEPHALEXIN Inactive Immunizations Vaccine Administration Date Value [...] Fluvirin, Fluarix, Agriflu(>=18 yo)) Fluzone (>3 yrs.) [[id number]] Influenza, seasonal, injectable pneumococcal immunization administered Pneumovax [...] Panel - Chemistry sodium, serum 137 mmol/L 318-560 8983/10/12 potassium, serum 4.8 mmol/L 3.5-5.2 chloride, serum 102 mmol/L 98-107 carbon dioxide, venous blood 27.6 mmol/L 21.0-32.0 blood glucose 168 mg/dL 65-110 calcium, serum 9.0 mg/dL 8.5-10.1 urea nitrogen, blood 15 mg/dL 7-18 creatinine, serum 1.04 mg/dL 0.55-1.30 sodium, serum 138 mmol/L 727-830 5914/11/11 potassium, serum 4.7 mmol/L 3.5-5.2 chloride, serum [...] % 11.6-14.8 platelet count 240 10^3/MM^3 10*3/mm3 906-678 1473/11/11 leukocyte count, blood 9.6 10^3/MM^3 10*3/mm3 4.6-10.2 [...] Acid - Chemistry cholesterol, serum 187 mg/dL 178-946 2775/06/14 triglyceride, serum, fasting 246 mg/dL 30-200 HDL [...] negative Encounters Code Encounter Date Provider Facility CPT-[id number] Level 3 Est. Patient 17:40:16 CDT Mima Erazo [facility] CPT-70530 Level 3 Est. Patient 14:34:52 CDT Vanessa Hickey MD [facility] CPT-13989 Level 3 Est. Patient 16:27:51 CDT Mima Erazo [facility] [place] CPT-86546 Level 3 Est. Patient 14:39:00 [employer]HOU[employer]ATION WORKER Vanessa Hickey MD [facility] CPT-64955 Level 2 Est. Patient 18:43:34 CDT Mima Erazo [facility] CPT-69486 Level 3 Est. Patient 16:22:09 CDT Cherelle [place]luciana [facility] [place] CPT-53165 Level 4 Est. Patient 17:55:14 CDT Mima Erazo [facility] CPT-73000 Level 2 Est. Patient 17:13:21 CDT Alina Castaneda MD [facility]-16321 Level 3 Est. Patient 14:46:15 CDT Vanessa Hickey MD [facility]-35325 Level 3 Est. Patient 09:34:56 CDT Alina Castaneda MD [facility]-41960 Level 3 Est. Patient 21:40:19 CDT Mima Erazo [facility]-02022 Level 3 Est. Patient 09:26:40 CDT Marvel Charles [facility]-94288 Level 3 Est. Patient 12:36:43 CDT Vanessa Hickey MD [facility]-90222 Level 3 Est. Patient 12:57:49 CDT Vanessa Hickey MD [facility]-57653 Level 3 Est. Patient 00:28:25 CDT Alina Castaneda MD [facility]-48340 Level 2 Est. Patient 12:52:14 CDT Alina Castaneda MD [facility]21489 Level 3 Est. Patient 11:51:18 [employer]HOUSE [employer]ATION WORKER Alina Castaneda MD [facility]-98762 Level 3 Est. 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 Patient 14:36:26 W[employer]HOUSE INSULATION WORKER Marvel Charles [facility]-02362 Level 3 Est. 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 Patient 19:52:08 W[employer]HOUSE INSULATION WORKER Alina Castaneda MD [facility]-46115 Level 3 Est. 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 Patient 21:54:06 CDT Vanessa Hickey MD [facility]-21293 Level 3 Est. Patient 08:54:46 CDT Alina Castaneda MD [facility]-25448 Level 3 Est. Patient 09:32:11 CDT Marvel Charles [facility]-46811 Level 3 Est. Patient 12:02:49 CDT Alina Castaneda MD PhD [facility]-90066 Level 3 Est. Patient 19:17:33 CDT Alina Castaneda MD [facility]-51397 Level 3 Est. Patient 13:19:10 CDT Marvel Charles [facility]-18026 Level 3 Est. Patient 08:20:05 CDT Alina Castaneda MD [facility]-46773 Level 3 Est. Patient 15:17:18 CDT Alina Castaneda MD [facility]-34779 Level 3 Est. Patient 14:25:36 W[employer]HOUSE INSULATION WORKER Marvel Charles [facility] CPT-90907 Level 3 Est. Patient 10:09:15 W[employer]HOUSE INSULATION WORKER Marvel Charles [facility]-53545 Level 3 Est. Patient 21:28:43 CDT Alina Castaneda MD PhD [facility]-46442 Level 3 Est. Patient 15:20:11 CDT Marvel Charles [facility]-72107 Level 4 Est. Patient 19:08:12 CDT Alina Castaneda MD [facility]-65143 Level 3 Est. Patient 15:06:39 CDT Marvel Charles [facility] CPT-96121 Level 4 Est. Patient 17:48:15 CDT Alina Castaneda MD [facility] CPT-54846 Level 3 Est. Patient 14:53:49 CDT Alina Castaneda MD [facility]-[id number] Level 3 Est. Patient 09:35:16 CDT Alina Castaneda MD [facility]-35321 Level 3 Est. Patient 12:23:22 CDT Alina Castaneda MD [facility]-66681 Level 3 Est. Patient 16:19:15 CDT Alina Castaneda MD [facility]-41465 Level 3 Est. Patient 21:39:56 [employer] Alina Castaneda MD [facility]-06999 Level 4 Est. Patient 14:12:56 [employer] Alina Castaneda MD [facility]-09687 Level 2 Est. Patient 15:34:57 [employer] Alina Castaneda MD [facility]-22185 Level 3 Est. Patient 12:17:04 [employer] WORK[employer] Alina Castaneda MD [facility] CPT-19814 Level 3 Est. Patient 09:18:18 [employer] WORKER Marvel Charles [facility]-60418 Level 2 Est. Patient 21:50:24 CDT Alina Castaneda MD [facility]-21942 Level 3 Est. Patient 09:17:28 CDT Marvel Charles [facility]-86232 Level 4 Est. Patient 18:54:02 CDT Alina Castaneda MD [facility]-21010 Level 3 Est. Patient 10:47:10 CDT Alina Castaneda MD [facility] CPT-12302 Level 3 Est. Patient 09:22:20 CDT Marvel Charles [facility] CPT-75494 Level 3 Est. Patient 16:39:43 [facility]T [facility] Level 3 Est. Patient 16:05:16 CDT Alina Castaneda MD [facility] CPT-08032 Level 3 Est. Patient 00:29:15 CDT Alina Castaneda MD [facility]-65415 Level 3 Est. Patient 10:49:22 [employer] [facility] CPT-21233 Level 3 Est. Patient 21:30:19 [employer] WORKER Alina Castaneda MD PhD [facility] CPT-49490 Level 4 Est. Patient 17:04:11 [employer] WORK[employer] [facility]97976 Level 3 Est. Patient 15:34:11 [employer] WORKER [facility]-28809 Level 2 Est. Patient 12:51:58 [employer] WORK[employer] Alina Castaneda MD PhD [facility] CPT-13802 Level 3 Est. Patient 13:20:01 [employer] WORK[employer] Alina Castaneda MD PhD [facility] CPT-74265 Level 3 Est. Patient 09:23:35 CDT Alina Castaneda MD PhD [facility] Procedures Code Procedure Name Date Entry Date Standard Description CPT-TCMM Transitional Care Mgmt-Moderate 10:25:31 CDT CPT-95368 Bladder Scan 14:34:53 CDT CPT-55867 Bladder Scan 14:39:01 [employer] CPT-TCMM Transitional Care Mgmt-Moderate 10:30:19 [employer] CPT-78611 Bladder Scan 12:36:44 CDT CPT-82030 Bladder Scan 21:54:06 CDT CPT-G0008 Administration of Influenza Virus Vaccine 13:05:26 CDT CPT-92812 Fluzone Quadrivalent Intramuscular Suspension 0.5 ML 13: 05:26 CDT CPT-28817 Administration single or combination vaccine inc oral 11 :49:51 CDT CPT-56224 Pneumovax 11:49:51 CDT CPT-77605 Ribs unilateral 2V 12:37:22 [employer] CPT-74596 Chest 2V Frontal and Lat 17:15:26 CDT CPT-78970 Abx/Therapy Injection 18:54:02 CDT CPT-J0696 Rocephin 1000 mg (Ceftriaxone) 16:00:32 CDT CPT-64530 Chest 2V Frontal and Lat 15:26:45 CDT CPT-86996 Chest 2V Frontal and Lat 10:23:27 CDT CPT-88257 Venipuncture Draw Fee 10:11:00 CDT CPT-94561 Administration single or combination vaccine inc oral 11 :56:38 CDT CPT-16883 Influenza split virus > age 3 11:56:38 CDT CPT-21430 Venipuncture Draw Fee 08:49:54 [employer] CPT-48711 EKG Trac and Interp 17:54:19 [employer] WORKER
--- OUTSIDE RECORDS SUMMARY | 2018-07-02 17:24 | XMS REPORT | Clinical Summary ---
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 Benign paroxysmal positional vertigo Vertigo, benign [...] Status Provider Patient Instruction CLONAZEPAM 1 MG TABS 1/2 pill by mouth three times daily CLONAZEPAM 00048627279 Active Alina Castaneda MD PhD Active MIRALAX POWD 17g by mouth daily, for constipation POLYETHYLENE GLYCOL 3350 58674931587 Active Alina Castaneda MD PhD Active HYDROCODONE-ACETAMINOPHEN 5-325 MG TABS 2 tabs by mouth three times daily for pain HYDROCODONE-ACETAMINOPHEN 38104558944 Active Alina Castaneda MD PhD Active HUMALOG KWIKPEN 100 UNIT/ML SC SOPN 20 units with breakfast, 10 units with lunch, 10 units with dinner, for diabetes INSULIN LISPRO (HUMAN ) 74614693568 Active Alina Castaneda MD PhD Active LEVEMIR FLEXTOUCH 100 UNIT/ML SC SOPN 70 units SQ each evening, for diabetes INSULIN DETEMIR 34580716455 Active Alina Castaneda MD PhD Active LATUDA 120 MG ORAL TABS 1 pill by mouth nightly LURASIDONE HCL 14438824411 Active Alina Castaneda MD PhD Active COLACE 100 MG CAPS 1 pill by mouth twice daily, for constipation DOCUSATE SODIUM 80559190662 Active Alina Castaneda MD PhD Active TRUETEST TEST STRP check blood sugars 3x/day GLUCOSE BLOOD 06209952139 Active Marvel MARROQUIN Active ACCU-CHEK ROSA UZMA Use device to check blood sugars BLOOD GLUCOSE MONITORING SUPPL 73830915318 No Longer Active Marvel MARROQUIN Active ACCU-CHEK ROSA INVITR STRP use strips with device to check blood sugars 3 times daily GLUCOSE BLOOD 86868455919 No Longer Active Marvel MARROQUIN Active VERAPAMIL HCL ER 180 MG ORAL CR-TABS 1 pill by mouth twice daily, for migraine prevention VERAPAMIL HCL 10829472748 Active Alina Castaneda MD PhD Active CYCLOBENZAPRINE HCL 10 MG TABS 1 tablet by mouth three times daily, scheduled CYCLOBENZAPRINE HCL 60931612055 No Longer Active Alina Castaneda MD PhD Active HUMALOG 100 UNIT/ML SOLN Take 20 units with breakfast, 10u with lunch and suppetr. INSULIN LISPRO (HUMAN) 15091378739 No Longer Active Alina Castaneda MD PhD Active TRUETEST TEST STRP check sugars 4x/day GLUCOSE BLOOD 47282328256 No Longer Active Alina Castaneda MD PhD Active MORPHINE SULFATE 30 MG TABS 1 pill by mouth twice daily, for pain MORPHINE SULFATE 84040155938 Active Alina Castaneda MD PhD Active ACYCLOVIR 400 MG ORAL TABS 1 pill three times daily x 5 days, for cold sore outbreak ACYCLOVIR 57269989979 No Longer Active Alina Castaneda MD PhD Active PENICILLIN V POTASSIUM 500 MG TABS 1 pill by mouth three times daily PENICILLIN V POTASSIUM 57700488154 No Longer Active Alina Castaneda MD PhD Active UROXATRAL 10 MG [id number]-HSV Take 1 tablet by mouth daily ALFUZOSIN HCL 87106103974 No Longer Active Alina Castaneda MD PhD Active THIOTHIXENE 5 MG CAPS by mouth twice a day THIOTHIXENE 64374780985 No Longer Active Alina Castaneda MD PhD Active ZYPREXA 7.5 MG TABS 1 at HS OLANZAPINE 34883662716 No Longer Active Alina Castaneda MD PhD Active BD INSULIN SYRINGE 28G X 1/2" 1 ML MISC 1 four times per day INSULIN SYRINGE-NEEDLE U-100 86059691795 Active Marvel Charles TELEVISION REPORTER Active TOLTERODINE TARTRATE 2 MG TABS 1 pill twice daily, for bladder TOLTERODINE TARTRATE 99595383557 Active Alina Castaneda MD PhD Active DETROL LA 4 MG [id number]-ICF Take 1 tablet by mouth daily TOLTERODINE TARTRATE 32755657767 No Longer Active Alina Castaneda MD PhD Active TERESE CONTOUR TEST STRP monitor blood sugars 3x/day GLUCOSE BLOOD 32555134555 No Longer Active Alina Castanead MD PhD Active EQL TRUETEST TEST STRP Test blood sugar TID GLUCOSE BLOOD 97694405965 No Longer Active Alina Castaneda MD PhD Active FLUTICASONE PROPIONATE 50 MCG/ACT SUSP 2 sprays each nostril qDay x 30 days FLUTICASONE PROPIONATE 01760814660 No Longer Active Alina Castaneda MD PhD Active IBUPROFEN 200 MG TABS 1 Q 6 hr. PRN IBUPROFEN 14910642385 No Longer Active Alina Castaneda MD PhD Active NIACIN ER 500 MG CR-TABS 4 qHS (for triglycerides) NIACIN 60001987449 No Longer Active Alina Castaneda MD PhD Active ALFUZOSIN HCL ER 10 MG [id number]-NAM 1 tablet daily ALFUZOSIN HCL 53938974507 Active Vanessa Hickey MD Active LOVAZA 1 GM CAPS 4 daily (for triglycerides) VOMFA-7-TCBI ETHYL ESTERS 87927277822 Active Alina Castaneda MD PhD Active SAPHRIS 5 MG SUBL by mouth twice a day ASENAPINE MALEATE 76463317702 No Longer Active Marvel MENDOZAP Active ACETAMINOPHEN 500 MG TABS 2 Q 6 hr. PRN ACETAMINOPHEN 41460358191 No Longer Active Mallashondaeh Ziglari TELEVISION REPORTER Active ORPHENADRINE CITRATE ER 100 MG [id number]-WUV 1 every 12 hr. as needed ORPHENADRINE CITRATE 57909887423 No Longer Active Alina Castaneda MD PhD Active NIACIN CR 500 MG CR-TABS 2 qHS NIACIN 13330633180 No Longer Active Alina Castaneda MD PhD Active AMOXICILLIN 500 MG CAPS 2 po BID x 10 days AMOXICILLIN 97660001977 No Longer Active Alina Castaneda MD PhD Active HYDROCODONE-ACETAMINOPHEN 7.5-325 MG TABS 1 four times a day as needed for pain HYDROCODONE-ACETAMINOPHEN 95681670454 No Longer Active Alina Castaneda MD PhD Active METFORMIN HCL ER 500 MG [id number]-JYC Take three tablets by mouth everyday METFORMIN HCL 54634483221 Active Marvel MARROQUIN Active DOXEPIN HCL 10 MG CAPS Take 1 tablet by mouth daily DOXEPIN HCL 72210211426 No Longer Active [facility] Active NAVANE 10 MG CAPS 1/2 tablet twice a day THIOTHIXENE No Longer Active [facility] Active CYCLOBENZAPRINE HCL 10 MG TABS 1/2 tablet by mouth every 8 hours as needed for muscle spasms CYCLOBENZAPRINE HCL 81661748890 No Longer Active Alina Castaneda MD PhD Active BACTROBAN 2 % CREAM apply to ear and nose twice daily MUPIROCIN CALCIUM 48337432029 No Longer Active Alina Castaneda MD PhD Active HYDROCODONE-ACETAMINOPHEN 5-325 MG TABS take one tablet by mouth every four hours as needed for pain HYDROCODONE-ACETAMINOPHEN 94295225761 No Longer Active Alina Castaneda MD PhD Active ZOLPIDEM TARTRATE 10 MG TABS take at bedtime ZOLPIDEM TARTRATE 45071021878 Active Alina Castaneda MD PhD Active ZYPREXA 5 MG TABS take one tablet by mouth every evening OLANZAPINE 01794050273 No Longer Active Alina Castaneda MD PhD Active ALBUTEROL SULFATE 0.083 % NEBU SOLN one vial per nebulizer TID and PRN cough/ soa ALBUTEROL SULFATE 36073919720 No Longer Active Alina Castaneda MD PhD Active GUAIFENESIN 600 MG ZA54G-TBU 1 tablet by mouth twice daily if needed for cough GUAIFENESIN 03332500911 No Longer Active Marvel MARROQUIN Active AZITHROMYCIN 500 MG SOLR 1 po q day AZITHROMYCIN 77626203743 No Longer Active Alina Castaneda MD PhD Active METOPROLOL SUCCINATE 100 MG VV34C-PLS 1 by mouth daily for blood pressure METOPROLOL SUCCINATE 52212933964 Active Alina Castaneda MD PhD Active PROMETHAZINE-CODEINE 6.25-10 MG/5ML SYRP 1 tsp po q 6 hours prn cough PROMETHAZINE-CODEINE 93352219864 No Longer Active Alina Castaneda MD PhD Active CEFDINIR 300 MG CAPS by mouth twice a day CEFDINIR 48722824540 No Longer Active Alina Castaneda MD PhD Active METFORMIN HCL 500 MG WF09U-TUE Take 3 tablets by mouth everyday METFORMIN HCL 33608572672 No Longer Active Alina Castaneda MD PhD Active LEVEMIR 100 UNIT/ML SOLN 90 units SQ qHS INSULIN DETEMIR 42775592428 No Longer Active Marvel MARROQUIN Active TOPROL XL 100 MG LC55T-IEY 1 @ HS METOPROLOL SUCCINATE 41485416923 No Longer Active Marvel MARROQUIN Active ALLOPURINOL 300 MG TABS Take one by mouth daily ALLOPURINOL 69859208362 Active Alina Castaneda MD PhD Active ZYPREXA 10 MG TABS Take one by mouth daily OLANZAPINE 48588189567 No Longer Active Alina Castaneda MD PhD Active NOVOLOG 100 UNIT/ML SOLN 40 units with every meal INSULIN ASPART 86595834204 No Longer Active Alina Castaneda MD PhD Active VERAPAMIL HCL CR 120 MG TAB CR 1 qPM VERAPAMIL HCL 46278572912 No Longer Active [facility] Active ZYPREXA 15 MG TABS Take 1 tablet by mouth daily OLANZAPINE 50815890782 No Longer Active Marvel MARROQUIN Active LISINOPRIL 20 MG TABS 1 BID LISINOPRIL 45773847776 Active Alina Castaneda MD PhD Active ALBUTEROL SULFATE (2.5 MG/3ML) 0.083% NEBU 1 neb tid and prn cough ALBUTEROL SULFATE 83466399918 No Longer Active Alina Castaneda MD PhD Active FLUVOXAMINE MALEATE 100 MG TABS Take one (1) tablet by mouth am, 1/2 at noon, 1 pm FLUVOXAMINE MALEATE 68085495336 Active Alina Castaneda MD PhD Active TRAVATAN Z 0.004 % SOLN 1 gtt each eye daily TRAVOPROST 47078741664 Active CRYSTAL Suarez Active LANTUS 100 UNIT/ML SOLN 60 units sq q hs INSULIN GLARGINE 64624427823 No Longer Active CRYSTAL Suarez Active ALBUTEROL SULFATE (2.5 MG/3ML) 0.083% NEBU 1 neb tid and prn cough ALBUTEROL SULFATE (2.5 MG/3ML) 0.083% NEBU 707778 ALBUTEROL SULFATE Inactive ZYPREXA 15 MG TABS Take 1 tablet by mouth daily ZYPREXA 15 MG TABS 517775 OLANZAPINE Inactive VERAPAMIL HCL CR 120 MG TAB CR 1 qPM VERAPAMIL HCL CR 120 MG TAB CR VERAPAMIL HCL Inactive ZYPREXA 10 MG TABS Take one by mouth daily ZYPREXA 10 MG TABS 218049 OLANZAPINE Inactive TOPROL XL 100 MG [id number] 1 @ HS TOPROL XL 100 MG UG93P-KLQ METOPROLOL SUCCINATE Inactive LEVEMIR 100 UNIT/ML SOLN 90 units SQ qHS LEVEMIR 100 UNIT/ML SOLN INSULIN DETEMIR Inactive PROMETHAZINE-CODEINE 6.25-10 MG/5ML SYRP 1 tsp po q 6 hours prn cough PROMETHAZINE-CODEINE 6.25-10 MG/5ML SYRP 249469 PROMETHAZINE- CODEINE Inactive GUAIFENESIN 600 MG HU76D-SNY 1 tablet by mouth twice daily if needed for cough GUAIFENESIN 600 MG KY58A-OMD GUAIFENESIN Inactive ALBUTEROL SULFATE 0.083 % NEBU SOLN one vial per nebulizer TID and PRN cough/ soa ALBUTEROL SULFATE 0.083 % NEBU SOLN 061381 ALBUTEROL SULFATE Inactive ZYPREXA 5 MG TABS take one tablet by mouth every evening ZYPREXA 5 MG TABS 535962 OLANZAPINE Inactive HYDROCODONE-ACETAMINOPHEN 5-325 MG TABS take one tablet by mouth every four hours as needed for pain HYDROCODONE-ACETAMINOPHEN 5-325 MG TABS 699064 HYDROCODONE-ACETAMINOPHEN Inactive BACTROBAN 2 % CREAM apply to ear and nose twice daily BACTROBAN 2 % CREAM 620674 MUPIROCIN CALCIUM Inactive CYCLOBENZAPRINE HCL 10 MG TABS 1/2 tablet by mouth every 8 hours as needed for muscle spasms CYCLOBENZAPRINE HCL 10 MG TABS 700292 CYCLOBENZAPRINE HCL Inactive NAVANE 10 MG CAPS 1/2 tablet twice a day NAVANE 10 MG CAPS THIOTHIXENE Inactive DOXEPIN HCL 10 MG CAPS Take 1 tablet by mouth daily DOXEPIN HCL 10 MG CAPS 1416421 DOXEPIN HCL Inactive HYDROCODONE-ACETAMINOPHEN 7.5-325 MG TABS 1 four times a day as needed for pain HYDROCODONE-ACETAMINOPHEN 7.5-325 MG TABS 757902 HYDROCODONE-ACETAMINOPHEN Inactive NIACIN CR 500 MG CR-TABS 2 qHS NIACIN CR 500 MG CR- TABS NIACIN Inactive ORPHENADRINE CITRATE ER 100 MG [id number]-EPS 1 every 12 hr. as needed ORPHENADRINE CITRATE ER 100 MG HI25Z-ARX ORPHENADRINE CITRATE Inactive ACETAMINOPHEN 500 MG TABS 2 Q 6 hr. PRN ACETAMINOPHEN 500 MG TABS 819645 ACETAMINOPHEN Inactive SAPHRIS 5 MG SUBL by mouth twice a day SAPHRIS 5 MG SUBL ASENAPINE MALEATE Inactive NIACIN ER 500 MG CR-TABS 4 qHS (for triglycerides) NIACIN ER 500 MG CR-TABS NIACIN Inactive IBUPROFEN 200 MG TABS 1 Q 6 hr. PRN IBUPROFEN 200 MG TABS 003904 IBUPROFEN Inactive FLUTICASONE PROPIONATE 50 MCG/ACT SUSP 2 sprays each nostril qDay x 30 days FLUTICASONE PROPIONATE 50 MCG/ACT SUSP 937181 FLUTICASONE PROPIONATE Inactive EQL TRUETEST TEST STRP Test blood sugar TID EQL TRUETEST TEST STRP GLUCOSE BLOOD Inactive TERESE CONTOUR TEST STRP monitor blood sugars 3x/day TEREES CONTOUR TEST STRP GLUCOSE BLOOD Inactive DETROL LA 4 MG PA43H-CND Take 1 tablet by mouth daily DETROL LA 4 MG TH02N-NGR TOLTERODINE TARTRATE Inactive ZYPREXA 7.5 MG TABS 1 at HS ZYPREXA 7.5 MG TABS 610701 OLANZAPINE Inactive THIOTHIXENE 5 MG CAPS by mouth twice a day THIOTHIXENE 5 MG CAPS 256837 THIOTHIXENE Inactive UROXATRAL 10 MG YH36B-ZVM Take 1 tablet by mouth daily UROXATRAL 10 MG [id number]-UQC ALFUZOSIN HCL Inactive ACYCLOVIR 400 MG ORAL TABS 1 pill three times daily x 5 days, for cold sore outbreak ACYCLOVIR 400 MG ORAL TABS 140614 ACYCLOVIR Inactive TRUETEST TEST STRP check sugars 4x/day TRUETEST TEST STRP GLUCOSE BLOOD Inactive HUMALOG 100 UNIT/ML SOLN Take 20 units with breakfast, 10u with lunch and suppetr. HUMALOG 100 UNIT/ML SOLN INSULIN LISPRO ( HUMAN) Inactive CYCLOBENZAPRINE HCL 10 MG TABS 1 tablet by mouth three times daily, scheduled CYCLOBENZAPRINE HCL 10 MG TABS 887661 CYCLOBENZAPRINE HCL Inactive ACCU-CHEK ROSA INVITR STRP use strips with device to check blood sugars 3 times daily ACCU-CHEK ROSA INVITR STRP GLUCOSE BLOOD Inactive ACCU-CHEK ROSA UZMA Use device to check blood sugars ACCU-CHEK ROSA UZMA BLOOD GLUCOSE MONITORING SUPPL Inactive CEFDINIR 300 MG CAPS by mouth twice a day CEFDINIR 300 MG CAPS 323721 CEFDINIR Inactive AZITHROMYCIN 500 MG SOLR 1 po q day AZITHROMYCIN 500 MG SOLR 224994 AZITHROMYCIN Inactive AMOXICILLIN 500 MG CAPS 2 po BID x 10 days AMOXICILLIN 500 MG CAPS 858431 AMOXICILLIN Inactive PENICILLIN V POTASSIUM 500 MG TABS 1 pill by mouth three times daily PENICILLIN V POTASSIUM 500 MG TABS 273919 PENICILLIN V POTASSIUM Inactive Immunizations Vaccine Administration [...] Fluvirin, Fluarix, Agriflu(>=18 yo)) Fluzone (>3 yrs.) [[id number]] Influenza, seasonal, injectable pneumococcal immunization administered Pneumovax [...] HGBA1C - Chemistry sodium, serum 131 mmol/L 815-549 6791/12/30 potassium, serum 5.0 mmol/L 3.5-5.2 chloride, serum 95 mmol/L 98-107 carbon dioxide, venous blood 26.7 mmol/L 21.0-32.0 blood glucose 112 mg/dL 65-110 calcium, serum 9.2 mg/dL 8.5-10.1 urea nitrogen, blood 12 mg/dL 7-18 creatinine, serum 1.10 mg/dL 0.60-1.30 hemoglobin A1C, blood, as % of total hemoglobin 5.8 % 4.3-6.0 Lab Report: Basic Metabolic Panel, HGBA1C, MICROALBUMIN - Chemistry sodium, serum 137 mmol/L 249-003 9398/05/19 potassium, serum 5.2 mmol/L 3.5-5.2 chloride, serum [...] microalbumin, urine 10 0-19 Lab Report: Chlamydia/GC APTIMA/03575, HIV-1/2 Agn/Dominga/49859, RPR (DX) W ... - Chemistry hepatitis B surface antigen NON-REACTIVE NON-REACTIVE Lab Report: Chlamydia/GC APTIMA/21359, HIV-1/2 Agn/Dominga/56692, RPR (DX) W ... - Lab chlamydia DNA probe NOT DETECTED NOT DETECTED Lab Report: Chlamydia/GC APTIMA/25562, HIV-1/2 Agn/Dominga/92391, RPR (DX) W ... - Microbiology Neisseria gonorrhoeae DNA probe NOT DETECTED NOT DETECTED Lab Report: Chlamydia/GC APTIMA/82853, HIV-1/2 Agn/Dominga/53789, RPR (DX) W ... - Serology rapid plasma reagin antibody titer NON-REACTIVE NON-REACTIVE Lab Report: Comp. Metabolic Panel - Chemistry sodium, serum 127 mmol/L 074-891 1560/10/27 potassium, serum 4.1 mmol/L 3.5-5.2 chloride, serum [...] CBC - Chemistry cholesterol, serum 131 mg/dL 646-646 6761/06/03 triglyceride, serum, fasting 383 mg/dL 30-200 HDL [...] 4.7 mg/dL 2.6-7.2 cholesterol, serum 142 mg/dL 616-243 7432/06/26 triglyceride, serum, fasting 272 mg/dL 30-200 HDL [...] mg/dL Encounters Code Encounter Date Provider Facility CPT-55813 Level 2 Est. Patient 17:13:21 CDT Alina Castaneda MD [facility] CPT-54979 Level 3 Est. Patient 14:46:15 CDT Vanessa Hickey MD [facility]-16980 Level 3 Est. Patient 09:34:56 CDT Alina Castaneda MD [facility]61040 Level 3 Est. Patient 21:40:19 CDT Mima Erazo APRN [facility] CPT-48256 Level 3 Est. Patient 09:26:40 CDT Marvel Charles [facility]-54195 Level 3 Est. Patient 12:36:43 CDT Vanessa Hickey MD [facility]-71021 Level 3 Est. Patient 12:57:49 CDT Vanessa Hickey MD [facility]-29701 Level 3 Est. Patient 00:28:25 CDT Alina Castaneda MD [facility]07442 Level 2 Est. Patient 12:52:14 CDT Alina Castaneda MD [facility]-80124 Level 3 Est. Patient 11:51:18 SHELL REPRINT OPERATOR Alina Castaneda MD [facility]-80697 Level 3 Est. Patient 10:09:22 SHELL REPRINT OPERATOR Alina Castaneda MD [facility]29388 Level 3 Est. Patient 14:36:26 SHELL REPRINT OPERATOR Marvel Charles [facility]-44391 Level 3 Est. Patient 13:34:47 SHELL REPRINT OPERATOR Alina Castaneda MD [facility]-64488 Level 3 Est. Patient 19:52:08 SHELL REPRINT OPERATOR Alina Castaneda MD PhD [facility]-89670 Level 3 Est. Patient 10:01:51 SHELL REPRINT OPERATOR Marvel Charles [facility]-32785 Level 3 Est. Patient 21:54:06 CDT Vanessa Hickey MD [facility]-66636 Level 3 Est. Patient 08:54:46 CDT Alina Castaneda MD PhD [facility]92416 Level 3 Est. Patient 09:32:11 CDT Marvel Charles [facility]-06793 Level 3 Est. Patient 12:02:49 CDT Alina Castaneda MD [facility]-26031 Level 3 Est. Patient 19:17:33 CDT Alina Castaneda MD [facility][note 3]62705 Level 3 Est. Patient 13:19:10 CDT Marvel Charles [facility]-85365 Level 3 Est. Patient 08:20:05 CDT Alina Castaneda MD [facility]-72458 Level 3 Est. Patient 15:17:18 CDT Alina Castaneda MD [facility]-98658 Level 3 Est. Patient 14:25:36 SHELL REPRINT OPERATOR Marvel Charles [facility]-63273 Level 3 Est. Patient 10:09:15 SHELL REPRINT OPERATOR Marvel Charles [facility]-24067 Level 3 Est. Patient 21:28:43 CDT Alina Castaneda MD [facility][note 3]64741 Level 3 Est. Patient 15:20:11 CDT Marvel Charles [facility]-68956 Level 4 Est. Patient 19:08:12 CDT Alina Castaneda MD [facility]-59972 Level 3 Est. Patient 15:06:39 CDT Marvel Charles [facility]-97810 Level 4 Est. Patient 17:48:15 CDT Alina Castaneda MD [facility]-47730 Level 3 Est. Patient 14:53:49 CDT Alina Castaneda MD [facility]-52285 Level 3 Est. Patient 09:35:16 CDT Alina Castaneda MD [facility]-78376 Level 3 Est. Patient 12:23:22 CDT Alina Castaneda MD [facility]-07019 Level 3 Est. Patient 16:19:15 CDT Alina Castaneda MD [facility]-05788 Level 3 Est. Patient 21:39:56 SHELL REPRINT OPERATOR Alina Castaneda MD [facility]-87179 Level 4 Est. Patient 14:12:56 SHELL REPRINT OPERATOR Alina Castaneda MD [facility]-45113 Level 2 Est. Patient 15:34:57 SHELL REPRINT OPERATOR Alina Castaneda MD [facility]-33239 Level 3 Est. Patient 12:17:04 SHELL REPRINT OPERATOR Alina Castaneda MD [facility]-95137 Level 3 Est. Patient 09:18:18 SHELL REPRINT OPERATOR Marvel Charles [facility]-05828 Level 2 Est. Patient 21:50:24 CDT Alina Castaneda MD [facility][note 3]77982 Level 3 Est. Patient 09:17:28 CDT Marvel Charles [facility] CPT-78077 Level 4 Est. Patient 18:54:02 CDT Alina Castaneda MD [facility] CPT-80770 Level 3 Est. Patient 10:47:10 CDT Alina Castaneda MD [facility] CPT-42030 Level 3 Est. Patient 09:22:20 CDT Marvel Charles [facility] CPT-65455 Level 3 Est. Patient 16:39:43 CDT Marvel Charles [facility] CPT-30226 Level 3 Est. Patient 16:05:16 CDT Alina Castaneda MD [facility]-76821 Level 3 Est. Patient 00:29:15 CDT Alina Castaneda MD [facility]-76681 Level 3 Est. Patient 10:49:22 SHELL REPRINT OPERATOR Marvel Gurdeepajayestela [facility] CPT-66900 Level 3 Est. Patient 21:30:19 SHELL REPRINT OPERATOR Alina Castaneda MD [facility] CPT-38072 Level 4 Est. Patient 17:04:[address] [facility]646 Level 3 Est. Patient 15:34:[address] C[facility]-10279 Level 2 Est. Patient 12:51:58 SHELL REPRINT OPERATOR Alina Castaneda MD PhD [facility] CPT-34353 Level 3 Est. Patient 13:20:01 SHELL REPRINT OPERATOR Alina Castaneda MD [facility] CPT-26005 Level 3 Est. Patient 09:23:35 CDT Alina Castaneda MD [facility] Procedures Code Procedure Name Date Entry Date Standard Description CPT-83668 Bladder Scan 12:36:44 CDT CPT-01415 Bladder Scan 21:54:06 CDT CPT-G0008 Administration of Influenza Virus Vaccine 13:05:26 CDT CPT-60344 Fluzone Quadrivalent Intramuscular Suspension 0.5 ML 13: 05:26 CDT CPT-67103 Administration single or combination vaccine inc oral 11 :49:51 CDT CPT-27588 Pneumovax 11:49:51 CDT CPT-45225 Ribs unilateral 2V 12:37:22 SHELL REPRINT OPERATOR CPT-75676 Chest 2V Frontal and Lat 17:15:26 CDT CPT-53691 Abx/Therapy Injection 18:54:02 CDT CPT-J0696 Rocephin 1000 mg (Ceftriaxone) 16:00:32 CDT CPT-38086 Chest 2V Frontal and Lat 15:26:45 CDT CPT-82800 Chest 2V Frontal and Lat 10:23:27 CDT CPT-91871 Venipuncture Draw Fee 10:11:00 CDT CPT-37666 Administration single or combination vaccine inc oral 11 :56:38 CDT CPT-65732 Influenza split virus > age 3 11:56:38 CDT CPT-05525 Venipuncture Draw Fee 08:49:54 SHELL REPRINT OPERATOR CPT-17329 EKG Trac and Interp 17:54:19 SHELL REPRINT OPERATOR
--- OUTSIDE RECORDS SUMMARY | 2018-07-02 17:25 | XMS REPORT | Clinical Summary ---
Author Author Admin, TERELL Organization [facility] Address Unknown Phone Unavailable Allergies, Adverse 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 Kacey PHYSIOLOGIST Benign paroxysmal positional vertigo Vertigo, benign paroxysmal position 386.11 Inactive Mima Kacey PHYSIOLOGIST Benign paroxysmal positional vertigo High-risk sexual behavior [...] 10u lunch and supper INSULIN LISPRO (HUMAN) 44552585883 Active Marvel Araceli MARROQUIN Active LATUDA 120 MG ORAL TABS 1 pill by mouth nightly LURASIDONE HCL 55381925675 Active Alina Castaneda MD PhD Active COLACE 100 MG CAPS 1 pill by mouth twice daily, for constipation DOCUSATE SODIUM 10204974979 Active Alina Castaneda MD PhD Active TRUETEST TEST STRP check blood sugars 3x/day GLUCOSE BLOOD 58061487314 Active Malnivia uGrdeepglari TRACK MAINTAINER Active ACCU-CHEK ROSA UZMA Use device to check blood sugars BLOOD GLUCOSE MONITORING SUPPL 72651291390 No Longer Active Marvel 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 TRACK MAINTAINER Active ACCU-CHEK ROSA INVITR STRP use strips with device to check blood sugars 3 times daily GLUCOSE BLOOD 97799754077 No Longer Active Brooksnivia Araceli MENDOZAP Active VERAPAMIL HCL ER 180 MG ORAL CR-TABS 1 pill by mouth twice daily, for migraine prevention VERAPAMIL HCL 22551328389 Active Alina Castaneda MD PhD Active CYCLOBENZAPRINE HCL 10 MG TABS 1 tablet by mouth three times daily, scheduled CYCLOBENZAPRINE HCL 07186552858 No Longer Active Alina Castaneda MD PhD Active HUMALOG 100 UNIT/ML SOLN Take 20 units with breakfast, 10u with lunch and suppetr. INSULIN LISPRO (HUMAN) 02512910899 No Longer Active Alina Castaneda MD PhD Active TRUETEST TEST STRP check sugars 4x/day GLUCOSE BLOOD 21737113102 No Longer Active Alina Castaneda MD PhD Active MORPHINE SULFATE 30 MG TABS 1 pill by mouth twice daily, for pain MORPHINE SULFATE 09861024337 Active Mason Loredo MD Active ACYCLOVIR 400 MG ORAL TABS 1 pill three times daily x 5 days, for cold sore outbreak ACYCLOVIR 42655543618 No Longer Active Alina Castaneda MD PhD Active PENICILLIN V POTASSIUM 500 MG TABS 1 pill by mouth three times daily PENICILLIN V POTASSIUM 57440665155 No Longer Active Alina Castaneda MD PhD Active UROXATRAL 10 MG [id number] Take 1 tablet by mouth daily ALFUZOSIN HCL 70388506981 No Longer Active Alina Castaneda MD PhD Active THIOTHIXENE 5 MG CAPS by mouth twice a day THIOTHIXENE 82431109028 No Longer Active Alina Castaneda MD PhD Active ZYPREXA 7.5 MG TABS 1 at HS OLANZAPINE 51955378879 No Longer Active Alina Castaneda MD PhD Active LEVEMIR 100 UNIT/ML SOLN Take 70 u at 7-8pm INSULIN DETEMIR 27815468019 Active Mallashondaeh Ziglari TRACK MAINTAINER Active BD INSULIN SYRINGE 28G X 1/2" 1 ML MISC 1 four times per day INSULIN SYRINGE-NEEDLE U-100 18279519179 Active Maljohn Mackenzieglari TRACK MAINTAINER Active TOLTERODINE TARTRATE 2 MG TABS 1 pill twice daily, for bladder TOLTERODINE TARTRATE 08976460256 Active Alina Castaneda MD PhD Active DETROL LA 4 MG [id number]-[id number] Take 1 tablet by mouth daily TOLTERODINE TARTRATE 28769278224 No Longer Active Alina Castaneda MD PhD Active HYDROCODONE-ACETAMINOPHEN 5-325 MG TABS 2 tabs by mouth three times daily as needed for pain HYDROCODONE-ACETAMINOPHEN 57165308924 Active Alina Castaneda MD PhD Active TERESE CONTOUR TEST STRP monitor blood sugars 3x/day GLUCOSE BLOOD 98387618138 No Longer Active Alina Castaneda MD PhD Active EQL TRUETEST TEST STRP Test blood sugar TID GLUCOSE BLOOD 78758760493 No Longer Active Alina Castaneda MD PhD Active FLUTICASONE PROPIONATE 50 MCG/ACT SUSP 2 sprays each nostril qDay x 30 days FLUTICASONE PROPIONATE 07935066738 No Longer Active Alina Castaneda MD PhD Active IBUPROFEN 200 MG TABS 1 Q 6 hr. PRN IBUPROFEN 70086769088 No Longer Active Alina Castaneda MD PhD Active NIACIN ER 500 MG CR-TABS 4 qHS (for triglycerides) NIACIN 45846968817 No Longer Active Alina Castaneda MD PhD Active ALFUZOSIN HCL ER 10 MG [id number] 1 tablet daily ALFUZOSIN HCL 46721550385 Active Vanessa Hickey MD Active CLONAZEPAM 1 MG TABS 1 pill by mouth three times daily CLONAZEPAM 75714328824 Active Alina Castaneda MD PhD Active LOVAZA 1 GM CAPS 4 daily (for triglycerides) [id number]-3-ZUIY ETHYL ESTERS 94611418823 Active Mao Rodriguez MD Active SAPHRIS 5 MG SUBL by mouth twice a day ASENAPINE MALEATE 42080917952 No Longer Active Marvel MARROQUIN Active ACETAMINOPHEN 500 MG TABS 2 Q 6 hr. PRN ACETAMINOPHEN 57104092564 No Longer Active Marvel MARROQUIN Active ORPHENADRINE CITRATE ER 100 MG [id number] 1 every 12 hr. as needed ORPHENADRINE CITRATE 71382778148 No Longer Active Alina Castaneda MD PhD Active NIACIN CR 500 MG CR-TABS 2 qHS NIACIN 19140695190 No Longer Active Alina Castaneda MD PhD Active AMOXICILLIN 500 MG CAPS 2 po BID x 10 days AMOXICILLIN 72418565928 No Longer Active Alina Castaneda MD PhD Active HYDROCODONE-ACETAMINOPHEN 7.5-325 MG TABS 1 four times a day as needed for pain HYDROCODONE-ACETAMINOPHEN 88986244994 No Longer Active Alina Castaneda MD PhD Active METFORMIN HCL ER 500 MG [id number] Take three tablets by mouth everyday METFORMIN HCL 64421611377 Active Marvel MENDOZAP Active DOXEPIN HCL 10 MG CAPS Take 1 tablet by mouth daily DOXEPIN HCL 77515015274 No Longer Active Salina Han [facility] Active NAVANE 10 MG CAPS 1/2 tablet twice a day THIOTHIXENE No Longer Active Salina Han A Active CYCLOBENZAPRINE HCL 10 MG TABS 1/2 tablet by mouth every 8 hours as needed for muscle spasms CYCLOBENZAPRINE HCL 27145913593 No Longer Active Alina Castaneda MD PhD Active BACTROBAN 2 % CREAM apply to ear and nose twice daily MUPIROCIN CALCIUM 58156458928 No Longer Active Alina Castaneda MD PhD Active HYDROCODONE-ACETAMINOPHEN 5-325 MG TABS take one tablet by mouth every four hours as needed for pain HYDROCODONE-ACETAMINOPHEN 80682183447 No Longer Active Alina Castaneda MD PhD Active ZOLPIDEM TARTRATE 10 MG TABS take at bedtime ZOLPIDEM TARTRATE 40209261775 Active Alina Castaneda MD PhD Active ZYPREXA 5 MG TABS take one tablet by mouth every evening OLANZAPINE 76998813774 No Longer Active Alina Castaneda MD PhD Active ALBUTEROL SULFATE 0.083 % NEBU SOLN one vial per nebulizer TID and PRN cough/ soa ALBUTEROL SULFATE 30661461216 No Longer Active Alina Castaneda MD PhD Active GUAIFENESIN 600 MG [id number] 1 tablet by mouth twice daily if needed for cough GUAIFENESIN 67525820232 No Longer Active Marvel MENDOZAP Active AZITHROMYCIN 500 MG SOLR 1 po q day AZITHROMYCIN 94505183360 No Longer Active Alina Castaneda MD PhD Active METOPROLOL SUCCINATE 100 MG UZ40S-FJE 1 by mouth daily for blood pressure METOPROLOL SUCCINATE 89634809319 Active Alina Castaneda MD PhD Active PROMETHAZINE-CODEINE 6.25-10 MG/5ML SYRP 1 tsp po q 6 hours prn cough PROMETHAZINE-CODEINE 35343390888 No Longer Active Alina Catsaneda MD PhD Active CEFDINIR 300 MG CAPS by mouth twice a day CEFDINIR 42997664406 No Longer Active Alina Castaneda MD PhD Active METFORMIN HCL 500 MG DA13M-CCQ Take 3 tablets by mouth everyday METFORMIN HCL 17756972404 No Longer Active Alina Castaneda MD PhD Active LEVEMIR 100 UNIT/ML SOLN 90 units SQ qHS INSULIN DETEMIR 55735167638 No Longer Active Marvel MARROQUIN Active TOPROL XL 100 MG [id number] 1 @ HS METOPROLOL SUCCINATE 76257704895 No Longer Active Marvel MARROQUIN Active ALLOPURINOL 300 MG TABS Take one by mouth daily ALLOPURINOL 01937944586 Active Alina Castaneda MD PhD Active ZYPREXA 10 MG TABS Take one by mouth daily OLANZAPINE 08438646305 No Longer Active Alina Castaneda MD PhD Active NOVOLOG 100 UNIT/ML SOLN 40 units with every meal INSULIN ASPART 46276015493 No Longer Active Alina Castaneda MD PhD Active VERAPAMIL HCL CR 120 MG TAB CR 1 qPM VERAPAMIL HCL 36378322685 No Longer Active Salina Han A Active ZYPREXA 15 MG TABS Take 1 tablet by mouth daily OLANZAPINE 64899425837 No Longer Active Marvel MARROQUIN Active LISINOPRIL 20 MG TABS 1 BID LISINOPRIL 29061842242 Active Alina Castaneda MD PhD Active ALBUTEROL SULFATE (2.5 MG/3ML) 0.083% NEBU 1 neb tid and prn cough ALBUTEROL SULFATE 25362406236 No Longer Active Ailna Castaneda MD PhD Active FLUVOXAMINE MALEATE 100 MG TABS Take one (1) tablet by mouth am, 1/2 at noon, 1 pm FLUVOXAMINE MALEATE 04829508593 Active Alina Castaneda MD PhD Active TRAVATAN Z 0.004 % SOLN 1 gtt each eye daily TRAVOPROST 31206307001 Active CRYSTAL Suarez Active LANTUS 100 UNIT/ML SOLN 60 units sq q hs INSULIN GLARGINE 14965303474 No Longer Active CRYSTAL Suarez Active ALBUTEROL SULFATE (2.5 MG/3ML) 0.083% NEBU 1 neb tid and prn cough ALBUTEROL SULFATE (2.5 MG/3ML) 0.083% NEBU 241826 ALBUTEROL SULFATE Inactive ZYPREXA 15 MG TABS Take 1 tablet by mouth daily ZYPREXA 15 MG TABS 119907 OLANZAPINE Inactive VERAPAMIL HCL CR 120 MG TAB CR 1 qPM VERAPAMIL HCL CR 120 MG TAB CR VERAPAMIL HCL Inactive ZYPREXA 10 MG TABS Take one by mouth daily ZYPREXA 10 MG TABS 154170 OLANZAPINE Inactive TOPROL XL 100 MG [id number] 1 @ HS TOPROL XL 100 MG [id number] METOPROLOL SUCCINATE Inactive LEVEMIR 100 UNIT/ML SOLN 90 units SQ qHS LEVEMIR 100 UNIT/ML SOLN INSULIN DETEMIR Inactive PROMETHAZINE-CODEINE 6.25-10 MG/5ML SYRP 1 tsp po q 6 hours prn cough PROMETHAZINE-CODEINE 6.25-10 MG/5ML SYRP 185085 PROMETHAZINE- CODEINE Inactive GUAIFENESIN 600 MG ZV72U-TGS 1 tablet by mouth twice daily if needed for cough GUAIFENESIN 600 MG [id number]-RCS GUAIFENESIN Inactive ALBUTEROL SULFATE 0.083 % NEBU SOLN one vial per nebulizer TID and PRN cough/ soa ALBUTEROL SULFATE 0.083 % NEBU SOLN 669468 ALBUTEROL SULFATE Inactive ZYPREXA 5 MG TABS take one tablet by mouth every evening ZYPREXA 5 MG TABS 623026 OLANZAPINE Inactive HYDROCODONE-ACETAMINOPHEN 5-325 MG TABS take one tablet by mouth every four hours as needed for pain HYDROCODONE-ACETAMINOPHEN 5-325 MG TABS 093726 HYDROCODONE-ACETAMINOPHEN Inactive BACTROBAN 2 % CREAM apply to ear and nose twice daily BACTROBAN 2 % CREAM 792622 MUPIROCIN CALCIUM Inactive CYCLOBENZAPRINE HCL 10 MG TABS 1/2 tablet by mouth every 8 hours as needed for muscle spasms CYCLOBENZAPRINE HCL 10 MG TABS 561361 CYCLOBENZAPRINE HCL Inactive NAVANE 10 MG CAPS 1/2 tablet twice a day NAVANE 10 MG CAPS THIOTHIXENE Inactive DOXEPIN HCL 10 MG CAPS Take 1 tablet by mouth daily DOXEPIN HCL 10 MG CAPS 0368456 DOXEPIN HCL Inactive HYDROCODONE-ACETAMINOPHEN 7.5-325 MG TABS 1 four times a day as needed for pain HYDROCODONE-ACETAMINOPHEN 7.5-325 MG TABS 927679 HYDROCODONE-ACETAMINOPHEN Inactive NIACIN CR 500 MG CR-TABS 2 qHS NIACIN CR 500 MG CR- TABS NIACIN Inactive ORPHENADRINE CITRATE ER 100 MG [id number] 1 every 12 hr. as needed ORPHENADRINE CITRATE ER 100 MG [id number] ORPHENADRINE CITRATE Inactive ACETAMINOPHEN 500 MG TABS 2 Q 6 hr. PRN ACETAMINOPHEN 500 MG TABS 453207 ACETAMINOPHEN Inactive SAPHRIS 5 MG SUBL by mouth twice a day SAPHRIS 5 MG SUBL ASENAPINE MALEATE Inactive NIACIN ER 500 MG CR-TABS 4 qHS (for triglycerides) NIACIN ER 500 MG CR-TABS NIACIN Inactive IBUPROFEN 200 MG TABS 1 Q 6 hr. PRN IBUPROFEN 200 MG TABS 991030 IBUPROFEN Inactive FLUTICASONE PROPIONATE 50 MCG/ACT SUSP 2 sprays each nostril qDay x 30 days FLUTICASONE PROPIONATE 50 MCG/ACT SUSP 533624 FLUTICASONE PROPIONATE Inactive EQL TRUETEST TEST STRP Test blood sugar TID EQL TRUETEST TEST STRP GLUCOSE BLOOD Inactive TERESE CONTOUR TEST STRP monitor blood sugars 3x/day TERESE CONTOUR TEST STRP GLUCOSE BLOOD Inactive DETROL LA 4 MG [id number] Take 1 tablet by mouth daily DETROL LA 4 MG [id number]-BNT TOLTERODINE TARTRATE Inactive ZYPREXA 7.5 MG TABS 1 at HS ZYPREXA 7.5 MG TABS 575788 OLANZAPINE Inactive THIOTHIXENE 5 MG CAPS by mouth twice a day THIOTHIXENE 5 MG CAPS 295079 THIOTHIXENE Inactive UROXATRAL 10 MG [id number]-DGO Take 1 tablet by mouth daily UROXATRAL 10 MG [id number] ALFUZOSIN HCL Inactive ACYCLOVIR 400 MG ORAL TABS 1 pill three times daily x 5 days, for cold sore outbreak ACYCLOVIR 400 MG ORAL TABS 844878 ACYCLOVIR Inactive TRUETEST TEST STRP check sugars 4x/day TRUETEST TEST STRP GLUCOSE BLOOD Inactive HUMALOG 100 UNIT/ML SOLN Take 20 units with breakfast, 10u with lunch and suppetr. HUMALOG 100 UNIT/ML SOLN INSULIN LISPRO ( HUMAN) Inactive CYCLOBENZAPRINE HCL 10 MG TABS 1 tablet by mouth three times daily, scheduled CYCLOBENZAPRINE HCL 10 MG TABS 672953 CYCLOBENZAPRINE HCL Inactive ACCU-CHEK ROSA INVITR STRP use strips with device to check blood sugars 3 times daily ACCU-CHEK ROSA INVITR STRP GLUCOSE BLOOD Inactive ACCU-CHEK ROSA UZMA Use device to check blood sugars ACCU-CHEK ROSA UZMA BLOOD GLUCOSE MONITORING SUPPL Inactive CEFDINIR 300 MG CAPS by mouth twice a day CEFDINIR 300 MG CAPS 306414 CEFDINIR Inactive AZITHROMYCIN 500 MG SOLR 1 po q day AZITHROMYCIN 500 MG SOLR 024350 AZITHROMYCIN Inactive AMOXICILLIN 500 MG CAPS 2 po BID x 10 days AMOXICILLIN 500 MG CAPS 817269 AMOXICILLIN Inactive PENICILLIN V POTASSIUM 500 MG TABS 1 pill by mouth three times daily PENICILLIN V POTASSIUM 500 MG TABS 217368 PENICILLIN V POTASSIUM Inactive Immunizations Vaccine Administration [...] Fluvirin, Fluarix, Agriflu(>=18 yo)) Fluzone (>3 yrs.) [RCW199] Influenza, seasonal, injectable pneumococcal immunization administered Pneumovax [...] HGBA1C - Chemistry sodium, serum 130 mmol/L 241-047 9932/06/09 potassium, serum 4.0 mmol/L 3.5-5.2 chloride, serum 92 mmol/L 98-107 carbon dioxide, venous blood 22.1 mmol/L 21.0-32.0 blood glucose 60 mg/dL 65-110 calcium, serum 9.5 mg/dL 8.5-10.1 urea nitrogen, blood 14 mg/dL 7-18 creatinine, serum 1.30 mg/dL 0.60-1.30 hemoglobin A1C, blood, as % of total hemoglobin 6.0 % 4.3-6.0 sodium, serum 131 mmol/L 313-895 1634/12/30 potassium, serum 5.0 mmol/L 3.5-5.2 chloride, serum 95 mmol/L 98-107 carbon dioxide, venous blood 26.7 mmol/L 21.0-32.0 blood glucose 112 mg/dL 65-110 calcium, serum 9.2 mg/dL 8.5-10.1 urea nitrogen, blood 12 mg/dL 7-18 creatinine, serum 1.10 mg/dL 0.60-1.30 hemoglobin A1C, blood, as % of total hemoglobin 5.8 % 4.3-6.0 Lab Report: Basic Metabolic Panel, HGBA1C, MICROALBUMIN - Chemistry sodium, serum 137 mmol/L 037-159 1151/05/19 potassium, serum 5.2 mmol/L 3.5-5.2 chloride, serum [...] Panel - Chemistry sodium, serum 127 mmol/L 069-525 2885/10/27 potassium, serum 4.1 mmol/L 3.5-5.2 chloride, serum [...] mg/dL Encounters Code Encounter Date Provider Facility CPT-38572 Level 3 Est. Patient 09:34:56 CDT Alina Castaneda MD PhD [facility]-05982 Level 3 Est. Patient 21:40:19 CDT Mima Erazo [facility] CPT-08163 Level 3 Est. Patient 09:26:40 CDT Marvel Charles [facility]-49049 Level 3 Est. Patient 12:36:43 CDT Vanessa Hickey MD [facility]-81155 Level 3 Est. Patient 12:57:49 CDT Vanessa Hickey MD [facility]-52006 Level 3 Est. Patient 00:28:25 CDT Alina Castaneda MD [facility]-67106 Level 2 Est. Patient 12:52:14 CDT Alina Castaneda MD PhD [facility]-43712 Level 3 Est. Patient 11:51:18 DRILL INSTRUCTOR Alina Castaneda MD [facility] CPT-17759 Level 3 Est. Patient 10:09:22 DRILL INSTRUCTOR Alina Castaneda MD [facility]-08648 Level 3 Est. Patient 14:36:26 DRILL INSTRUCTOR Marvel Charles [facility] CPT-30261 Level 3 Est. Patient 13:34:47 DRILL INSTRUCTOR Al[facility] Level 3 Est. Patient 19:52:08 DRILL INSTRUCTOR Alina Castaneda MD PhD [facility]-16679 Level 3 Est. Patient 10:01:51 DRILL INSTRUCTOR Brookslashondanivia Araceli [facility]-93069 Level 3 Est. Patient 21:54:06 CDT Vanessa Hickey MD [facility]-07648 Level 3 Est. Patient 08:54:46 CDT Alina Castaneda MD [facility]-69569 Level 3 Est. Patient 09:32:11 CDT Marvel Charles [facility]-60735 Level 3 Est. Patient 12:02:49 CDT Alina Castaneda MD [facility]22175 Level 3 Est. Patient 19:17:33 CDT Alina Castaneda MD [facility]-42706 Level 3 Est. Patient 13:19:10 CDT Marvel Charles [facility]-43574 Level 3 Est. Patient 08:20:05 CDT Alina Castaneda MD [facility]22014 Level 3 Est. Patient 15:17:18 CDT Alina Castaneda MD [facility]-38818 Level 3 Est. Patient 14:25:36 DRILL INSTRUCTOR Brooksjohn Charles [facility]-07874 Level 3 Est. Patient 10:09:15 DRILL INSTRUCTOR Marvel Charles [facility]29419 Level 3 Est. Patient 21:28:43 CDT Alina Castaneda MD [facility]57271 Level 3 Est. Patient 15:20:11 CDT Marvel Charles [facility]71188 Level 4 Est. Patient 19:08:12 CDT Alina Castaneda MD [facility] CPT-16375 Level 3 Est. Patient 15:06:39 CDT Marvel Charles [facility] CPT-33978 Level 4 Est. Patient 17:48:15 CDT Alina Castaneda MD [facility]-07456 Level 3 Est. Patient 14:53:49 CDT Alina Castaneda MD [facility]-89924 Level 3 Est. Patient 09:35:16 CDT Alina Castaneda MD [facility]-21612 Level 3 Est. Patient 12:23:22 CDT Alina Castaneda MD [facility]-04769 Level 3 Est. Patient 16:19:15 CDT Alina Castaneda MD [facility]-30602 Level 3 Est. Patient 21:39:56 DRILL INSTRUCTOR Alina Castaneda MD [facility] CPT-19607 Level 4 Est. Patient 14:12:56 DRILL INSTRUCTOR Alina Castaneda MD [facility] CPT-98857 Level 2 Est. Patient 15:34:57 DRILL INSTRUCTOR Alina Castaneda MD [facility] CPT-83103 Level 3 Est. Patient 12:17:04 DRILL INSTRUCTOR Alina Castaneda MD [facility] CPT-52949 Level 3 Est. Patient 09:18:18 DRILL INSTRUCTOR Marvel Charles [facility]-89467 Level 2 Est. Patient 21:50:24 CDT Alina Castaneda MD [facility] CPT-59975 Level 3 Est. Patient 09:17:28 CDT Marvel Charles [facility] CPT-93454 Level 4 Est. Patient 18:54:02 CDT Alina Castaneda MD [facility] CPT-40081 Level 3 Est. Patient 10:47:10 CDT Alina Castaneda MD [facility] CPT-26824 Level 3 Est. Patient 09:22:20 CDT Marvel Thurstonestela [facility] CPT-78936 Level 3 Est. Patient 16:39:43 CDT Marvel Araceli [facility] CPT-61502 Level 3 Est. Patient 16:05:16 CDT Alina Castaneda MD [facility] CPT-68055 Level 3 Est. Patient 00:29:15 CDT Alina Castaneda MD [facility] CPT-63581 Level 3 Est. Patient 10:49:22 DRILL INSTRUCTOR Brooksjohn Charles [facility] CPT-65607 Level 3 Est. Patient 21:30:19 DRILL INSTRUCTOR Alina Castaneda MD [facility] CPT-01241 Level 4 Est. Patient 17:04:11 DRILL INSTRUCTOR Brookslashondanivia Araceli [facility] CPT-57270 Level 3 Est. Patient 15:34:11 DRILL INSTRUCTOR Marvel Araceli [facility] CPT-20213 Level 2 Est. Patient 12:51:58 DRILL INSTRUCTOR Alina Castaneda MD PhD [facility] CPT-99256 Level 3 Est. Patient 13:20:01 DRILL INSTRUCTOR Alina Castaneda MD [facility] CPT-97807 Level 3 Est. Patient 09:23:35 CDT Alina Castaneda MD [facility] Procedures Code Procedure Name Date Entry Date Standard Description CPT-86788 Bladder Scan 12:36:44 CDT CPT-19066 Bladder Scan 21:54:06 CDT CPT-G0008 Administration of Influenza Virus Vaccine 13:05:26 CDT CPT-32997 Fluzone Quadrivalent Intramuscular Suspension 0.5 ML 13: 05:26 CDT CPT-84073 Administration single or combination vaccine inc oral 11 :49:51 CDT CPT-29724 Pneumovax 11:49:51 CDT CPT-63741 Ribs unilateral 2V 12:37:22 DRILL INSTRUCTOR CPT-53792 Chest 2V Frontal and Lat 17:15:26 CDT CPT-41783 Abx/Therapy Injection 18:54:02 CDT CPT-J0696 Rocephin 1000 mg (Ceftriaxone) 16:00:32 CDT CPT-20822 Chest 2V Frontal and Lat 15:26:45 CDT CPT-68814 Chest 2V Frontal and Lat 10:23:27 CDT CPT-72776 Venipuncture Draw Fee 10:11:00 CDT CPT-04690 Administration single or combination vaccine inc oral 11 :56:38 CDT CPT-79519 Influenza split virus > age 3 11:56:38 CDT CPT-67409 Venipuncture Draw Fee 08:49:54 DRILL INSTRUCTOR CPT-55762 EKG Trac and Interp 17:54:19 DRILL INSTRUCTOR
--- OUTSIDE RECORDS SUMMARY | 2018-07-02 17:27 | XMS REPORT | Clinical Summary ---
Author Author Admin, TERELL Organization [facility] Address Unknown Phone Unavailable Allergies, Adverse Reactions, 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 Kacey KETTLE SKIMMER Benign paroxysmal positional vertigo Vertigo, benign paroxysmal position 386.11 Inactive Mima Kacey KETTLE SKIMMER Benign paroxysmal positional vertigo High-risk sexual behavior [...] 10u lunch and supper INSULIN LISPRO (HUMAN) 90491967955 Active Marvel Araceli MRAROQUIN Active LATUDA 120 MG ORAL TABS 1 pill by mouth nightly LURASIDONE HCL 66826569364 Active Alina Castaneda MD PhD Active COLACE 100 MG CAPS 1 pill by mouth twice daily, for constipation DOCUSATE SODIUM 78864477265 Active Alina Castaneda MD PhD Active TRUETEST TEST STRP check blood sugars 3x/day GLUCOSE BLOOD 40275135076 Active Malnivia 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 PALLETIZER OPERATOR Active ACCU-CHEK ROSA UZMA Use device to check blood sugars BLOOD GLUCOSE MONITORING SUPPL 42211974263 No Longer Active Marvel 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 PALLETIZER OPERATOR Active ACCU-CHEK ROSA INVITR STRP use strips with device to check blood sugars 3 times daily GLUCOSE BLOOD 69816405748 No Longer Active Brooksnivia Araceli MENDOZAP Active VERAPAMIL HCL ER 180 MG ORAL CR-TABS 1 pill by mouth twice daily, for migraine prevention VERAPAMIL HCL 45646650681 Active Alina Castaneda MD PhD Active CYCLOBENZAPRINE HCL 10 MG TABS 1 tablet by mouth three times daily, scheduled CYCLOBENZAPRINE HCL 59918894550 No Longer Active Alina Castaneda MD PhD Active HUMALOG 100 UNIT/ML SOLN Take 20 units with breakfast, 10u with lunch and suppetr. INSULIN LISPRO (HUMAN) 07622428785 No Longer Active Alina Castaneda MD PhD Active TRUETEST TEST STRP check sugars 4x/day GLUCOSE BLOOD 73228935007 No Longer Active Alina Castaneda MD PhD Active MORPHINE SULFATE 30 MG TABS 1 pill by mouth twice daily, for pain MORPHINE SULFATE 47890517704 Active Mason Loredo MD Active ACYCLOVIR 400 MG ORAL TABS 1 pill three times daily x 5 days, for cold sore outbreak ACYCLOVIR 40893690499 No Longer Active Alina Castaneda MD PhD Active PENICILLIN V POTASSIUM 500 MG TABS 1 pill by mouth three times daily PENICILLIN V POTASSIUM 76761705057 No Longer Active Alina Castaneda MD PhD Active UROXATRAL 10 MG [id number]-[id number] Take 1 tablet by mouth daily ALFUZOSIN HCL 96542845118 No Longer Active Alina Castaneda MD PhD Active THIOTHIXENE 5 MG CAPS by mouth twice a day THIOTHIXENE 81776561018 No Longer Active Alina Castaneda MD PhD Active ZYPREXA 7.5 MG TABS 1 at HS OLANZAPINE 21367238312 No Longer Active Alina Castaneda MD PhD Active LEVEMIR 100 UNIT/ML SOLN Take 70 u at 7-8pm INSULIN DETEMIR 40387990989 Active Mallashondaeh Ziglari PALLETIZER OPERATOR Active BD INSULIN SYRINGE 28G X 1/2" 1 ML MISC 1 four times per day INSULIN SYRINGE-NEEDLE U-100 95884001630 Active Maljohn Mackenzieglari PALLETIZER OPERATOR Active TOLTERODINE TARTRATE 2 MG TABS 1 pill twice daily, for bladder TOLTERODINE TARTRATE 58955205145 Active Alina Castaneda MD PhD Active DETROL LA 4 MG [id number] Take 1 tablet by mouth daily TOLTERODINE TARTRATE 88504546378 No Longer Active Alina Castaneda MD PhD Active HYDROCODONE-ACETAMINOPHEN 5-325 MG TABS 2 tabs by mouth three times daily as needed for pain HYDROCODONE-ACETAMINOPHEN 75303713516 Active Alina Castaneda MD PhD Active TERESE CONTOUR TEST STRP monitor blood sugars 3x/day GLUCOSE BLOOD 03363545760 No Longer Active Alina Castaneda MD PhD Active EQL TRUETEST TEST STRP Test blood sugar TID GLUCOSE BLOOD 91166421500 No Longer Active Alina Castaneda MD PhD Active FLUTICASONE PROPIONATE 50 MCG/ACT SUSP 2 sprays each nostril qDay x 30 days FLUTICASONE PROPIONATE 21908057364 No Longer Active Alina Castaneda MD PhD Active IBUPROFEN 200 MG TABS 1 Q 6 hr. PRN IBUPROFEN 92159384232 No Longer Active Alina Castaneda MD PhD Active NIACIN ER 500 MG CR-TABS 4 qHS (for triglycerides) NIACIN 13829920809 No Longer Active Alina Castaneda MD PhD Active ALFUZOSIN HCL ER 10 MG [id number] 1 tablet daily ALFUZOSIN HCL 53397966616 Active Vanessa Hickey MD Active CLONAZEPAM 1 MG TABS 1 pill by mouth three times daily CLONAZEPAM 98203567856 Active Alina Castaneda MD PhD Active LOVAZA 1 GM CAPS 4 daily (for triglycerides) [id number] ETHYL ESTERS 89136549601 Active Mao Rodriguez MD Active SAPHRIS 5 MG SUBL by mouth twice a day ASENAPINE MALEATE 12678997105 No Longer Active Marvel MARROQUIN Active ACETAMINOPHEN 500 MG TABS 2 Q 6 hr. PRN ACETAMINOPHEN 18486876397 No Longer Active Marvel MARROQUIN Active ORPHENADRINE CITRATE ER 100 MG [id number]-MLR 1 every 12 hr. as needed ORPHENADRINE CITRATE 46986270279 No Longer Active Alina Castaneda MD PhD Active NIACIN CR 500 MG CR-TABS 2 qHS NIACIN 87474647789 No Longer Active Alina Castaneda MD PhD Active AMOXICILLIN 500 MG CAPS 2 po BID x 10 days AMOXICILLIN 09953718137 No Longer Active Alina Castaneda MD PhD Active HYDROCODONE-ACETAMINOPHEN 7.5-325 MG TABS 1 four times a day as needed for pain HYDROCODONE-ACETAMINOPHEN 80293235533 No Longer Active Alina Castaneda MD PhD Active METFORMIN HCL ER 500 MG [id number] Take three tablets by mouth everyday METFORMIN HCL 94048203752 Active Marvel MENDOZAP Active DOXEPIN HCL 10 MG CAPS Take 1 tablet by mouth daily DOXEPIN HCL 87448103799 No Longer Active Salina Han [facility] Active NAVANE 10 MG CAPS 1/2 tablet twice a day THIOTHIXENE No Longer Active Salina Han A Active CYCLOBENZAPRINE HCL 10 MG TABS 1/2 tablet by mouth every 8 hours as needed for muscle spasms CYCLOBENZAPRINE HCL 73128315711 No Longer Active Alina Castaneda MD PhD Active BACTROBAN 2 % CREAM apply to ear and nose twice daily MUPIROCIN CALCIUM 39744756350 No Longer Active Alina Castaneda MD PhD Active HYDROCODONE-ACETAMINOPHEN 5-325 MG TABS take one tablet by mouth every four hours as needed for pain HYDROCODONE-ACETAMINOPHEN 47067576882 No Longer Active Alina Castaneda MD PhD Active ZOLPIDEM TARTRATE 10 MG TABS take at bedtime ZOLPIDEM TARTRATE 88789195124 Active Alina Castaneda MD PhD Active ZYPREXA 5 MG TABS take one tablet by mouth every evening OLANZAPINE 25336682089 No Longer Active Alina Castaneda MD PhD Active ALBUTEROL SULFATE 0.083 % NEBU SOLN one vial per nebulizer TID and PRN cough/ soa ALBUTEROL SULFATE 33963809895 No Longer Active Alina Castaneda MD PhD Active GUAIFENESIN 600 MG [id number]-OMN 1 tablet by mouth twice daily if needed for cough GUAIFENESIN 96575884283 No Longer Active Marvel MENDOZAP Active AZITHROMYCIN 500 MG SOLR 1 po q day AZITHROMYCIN 35977537890 No Longer Active Alina Castaneda MD PhD Active METOPROLOL SUCCINATE 100 MG [id number]-MZS 1 by mouth daily for blood pressure METOPROLOL SUCCINATE 71559162433 Active Alina Castaneda MD PhD Active PROMETHAZINE-CODEINE 6.25-10 MG/5ML SYRP 1 tsp po q 6 hours prn cough PROMETHAZINE-CODEINE 45049665005 No Longer Active Alina Castaneda MD PhD Active CEFDINIR 300 MG CAPS by mouth twice a day CEFDINIR 06826368513 No Longer Active Alina Castaneda MD PhD Active METFORMIN HCL 500 MG [id number]-FCN Take 3 tablets by mouth everyday METFORMIN HCL 45264681818 No Longer Active Alina Castaneda MD PhD Active LEVEMIR 100 UNIT/ML SOLN 90 units SQ qHS INSULIN DETEMIR 16732091509 No Longer Active Marvel MARROQUIN Active TOPROL XL 100 MG [id number]-SEE 1 @ HS METOPROLOL SUCCINATE 12759327562 No Longer Active Marvel MARROQUIN Active ALLOPURINOL 300 MG TABS Take one by mouth daily ALLOPURINOL 81678034095 Active Alina Castaneda MD PhD Active ZYPREXA 10 MG TABS Take one by mouth daily OLANZAPINE 81504832469 No Longer Active Alina Castaneda MD PhD Active NOVOLOG 100 UNIT/ML SOLN 40 units with every meal INSULIN ASPART 85376288617 No Longer Active Alina Castaneda MD PhD Active VERAPAMIL HCL CR 120 MG TAB CR 1 qPM VERAPAMIL HCL 48802636771 No Longer Active Salina Han A Active ZYPREXA 15 MG TABS Take 1 tablet by mouth daily OLANZAPINE 77356335621 No Longer Active Marvel MARROQUIN Active LISINOPRIL 20 MG TABS 1 BID LISINOPRIL 63657374298 Active Alnia Castaneda MD PhD Active ALBUTEROL SULFATE (2.5 MG/3ML) 0.083% NEBU 1 neb tid and prn cough ALBUTEROL SULFATE 87517006940 No Longer Active Alina Castaneda MD PhD Active FLUVOXAMINE MALEATE 100 MG TABS Take one (1) tablet by mouth am, 1/2 at noon, 1 pm FLUVOXAMINE MALEATE 46622858451 Active Alina Castaneda MD PhD Active TRAVATAN Z 0.004 % SOLN 1 gtt each eye daily TRAVOPROST 91187008577 Active CRYSTAL Suarez Active LANTUS 100 UNIT/ML SOLN 60 units sq q hs INSULIN GLARGINE 58898267153 No Longer Active CRYSTAL Suarez Active ALBUTEROL SULFATE (2.5 MG/3ML) 0.083% NEBU 1 neb tid and prn cough ALBUTEROL SULFATE (2.5 MG/3ML) 0.083% NEBU 678640 ALBUTEROL SULFATE Inactive ZYPREXA 15 MG TABS Take 1 tablet by mouth daily ZYPREXA 15 MG TABS 599608 OLANZAPINE Inactive VERAPAMIL HCL CR 120 MG TAB CR 1 qPM VERAPAMIL HCL CR 120 MG TAB CR VERAPAMIL HCL Inactive ZYPREXA 10 MG TABS Take one by mouth daily ZYPREXA 10 MG TABS 464098 OLANZAPINE Inactive TOPROL XL 100 MG [id number]-GVX 1 @ HS TOPROL XL 100 MG WE59S-XPX METOPROLOL SUCCINATE Inactive LEVEMIR 100 UNIT/ML SOLN 90 units SQ qHS LEVEMIR 100 UNIT/ML SOLN INSULIN DETEMIR Inactive PROMETHAZINE-CODEINE 6.25-10 MG/5ML SYRP 1 tsp po q 6 hours prn cough PROMETHAZINE-CODEINE 6.25-10 MG/5ML SYRP 566181 PROMETHAZINE- CODEINE Inactive GUAIFENESIN 600 MG [id number]-AZT 1 tablet by mouth twice daily if needed for cough GUAIFENESIN 600 MG [id number] GUAIFENESIN Inactive ALBUTEROL SULFATE 0.083 % NEBU SOLN one vial per nebulizer TID and PRN cough/ soa ALBUTEROL SULFATE 0.083 % NEBU SOLN 189853 ALBUTEROL SULFATE Inactive ZYPREXA 5 MG TABS take one tablet by mouth every evening ZYPREXA 5 MG TABS 486666 OLANZAPINE Inactive HYDROCODONE-ACETAMINOPHEN 5-325 MG TABS take one tablet by mouth every four hours as needed for pain HYDROCODONE-ACETAMINOPHEN 5-325 MG TABS 483728 HYDROCODONE-ACETAMINOPHEN Inactive BACTROBAN 2 % CREAM apply to ear and nose twice daily BACTROBAN 2 % CREAM 286409 MUPIROCIN CALCIUM Inactive CYCLOBENZAPRINE HCL 10 MG TABS 1/2 tablet by mouth every 8 hours as needed for muscle spasms CYCLOBENZAPRINE HCL 10 MG TABS 042815 CYCLOBENZAPRINE HCL Inactive NAVANE 10 MG CAPS 1/2 tablet twice a day NAVANE 10 MG CAPS THIOTHIXENE Inactive DOXEPIN HCL 10 MG CAPS Take 1 tablet by mouth daily DOXEPIN HCL 10 MG CAPS 1304380 DOXEPIN HCL Inactive HYDROCODONE-ACETAMINOPHEN 7.5-325 MG TABS 1 four times a day as needed for pain HYDROCODONE-ACETAMINOPHEN 7.5-325 MG TABS 887690 HYDROCODONE-ACETAMINOPHEN Inactive NIACIN CR 500 MG CR-TABS 2 qHS NIACIN CR 500 MG CR- TABS NIACIN Inactive ORPHENADRINE CITRATE ER 100 MG [id number] 1 every 12 hr. as needed ORPHENADRINE CITRATE ER 100 MG [id number]-CNP ORPHENADRINE CITRATE Inactive ACETAMINOPHEN 500 MG TABS 2 Q 6 hr. PRN ACETAMINOPHEN 500 MG TABS 690132 ACETAMINOPHEN Inactive SAPHRIS 5 MG SUBL by mouth twice a day SAPHRIS 5 MG SUBL ASENAPINE MALEATE Inactive NIACIN ER 500 MG CR-TABS 4 qHS (for triglycerides) NIACIN ER 500 MG CR-TABS NIACIN Inactive IBUPROFEN 200 MG TABS 1 Q 6 hr. PRN IBUPROFEN 200 MG TABS 267516 IBUPROFEN Inactive FLUTICASONE PROPIONATE 50 MCG/ACT SUSP 2 sprays each nostril qDay x 30 days FLUTICASONE PROPIONATE 50 MCG/ACT SUSP 353817 FLUTICASONE PROPIONATE Inactive EQL TRUETEST TEST STRP Test blood sugar TID EQL TRUETEST TEST STRP GLUCOSE BLOOD Inactive TERESE CONTOUR TEST STRP monitor blood sugars 3x/day TERESE CONTOUR TEST STRP GLUCOSE BLOOD Inactive DETROL LA 4 MG [id number] Take 1 tablet by mouth daily DETROL LA 4 MG [id number]-WWT TOLTERODINE TARTRATE Inactive ZYPREXA 7.5 MG TABS 1 at HS ZYPREXA 7.5 MG TABS 777575 OLANZAPINE Inactive THIOTHIXENE 5 MG CAPS by mouth twice a day THIOTHIXENE 5 MG CAPS 727925 THIOTHIXENE Inactive UROXATRAL 10 MG CZ18R-EOH Take 1 tablet by mouth daily UROXATRAL 10 MG AZ71B-ZWR ALFUZOSIN HCL Inactive ACYCLOVIR 400 MG ORAL TABS 1 pill three times daily x 5 days, for cold sore outbreak ACYCLOVIR 400 MG ORAL TABS 198714 ACYCLOVIR Inactive TRUETEST TEST STRP check sugars 4x/day TRUETEST TEST STRP GLUCOSE BLOOD Inactive HUMALOG 100 UNIT/ML SOLN Take 20 units with breakfast, 10u with lunch and suppetr. HUMALOG 100 UNIT/ML SOLN INSULIN LISPRO ( HUMAN) Inactive CYCLOBENZAPRINE HCL 10 MG TABS 1 tablet by mouth three times daily, scheduled CYCLOBENZAPRINE HCL 10 MG TABS 407404 CYCLOBENZAPRINE HCL Inactive ACCU-CHEK ROSA INVITR STRP use strips with device to check blood sugars 3 times daily ACCU-CHEK ROSA INVITR STRP GLUCOSE BLOOD Inactive ACCU-CHEK ROSA UZMA Use device to check blood sugars ACCU-CHEK ROSA UZMA BLOOD GLUCOSE MONITORING SUPPL Inactive CEFDINIR 300 MG CAPS by mouth twice a day CEFDINIR 300 MG CAPS 257692 CEFDINIR Inactive AZITHROMYCIN 500 MG SOLR 1 po q day AZITHROMYCIN 500 MG SOLR 599378 AZITHROMYCIN Inactive AMOXICILLIN 500 MG CAPS 2 po BID x 10 days AMOXICILLIN 500 MG CAPS 659858 AMOXICILLIN Inactive PENICILLIN V POTASSIUM 500 MG TABS 1 pill by mouth three times daily PENICILLIN V POTASSIUM 500 MG TABS 864372 PENICILLIN V POTASSIUM Inactive Immunizations Vaccine Administration [...] Fluvirin, Fluarix, Agriflu(>=18 yo)) Fluzone (>3 yrs.) [[id number]] Influenza, seasonal, injectable pneumococcal immunization administered Pneumovax [...] HGBA1C - Chemistry sodium, serum 130 mmol/L 550-856 1513/06/09 potassium, serum 4.0 mmol/L 3.5-5.2 chloride, serum 92 mmol/L 98-107 carbon dioxide, venous blood 22.1 mmol/L 21.0-32.0 blood glucose 60 mg/dL 65-110 calcium, serum 9.5 mg/dL 8.5-10.1 urea nitrogen, blood 14 mg/dL 7-18 creatinine, serum 1.30 mg/dL 0.60-1.30 hemoglobin A1C, blood, as % of total hemoglobin 6.0 % 4.3-6.0 sodium, serum 131 mmol/L 967-481 9462/12/30 potassium, serum 5.0 mmol/L 3.5-5.2 chloride, serum 95 mmol/L 98-107 carbon dioxide, venous blood 26.7 mmol/L 21.0-32.0 blood glucose 112 mg/dL 65-110 calcium, serum 9.2 mg/dL 8.5-10.1 urea nitrogen, blood 12 mg/dL 7-18 creatinine, serum 1.10 mg/dL 0.60-1.30 hemoglobin A1C, blood, as % of total hemoglobin 5.8 % 4.3-6.0 Lab Report: Basic Metabolic Panel, HGBA1C, MICROALBUMIN - Chemistry sodium, serum 137 mmol/L 196-902 5398/05/19 potassium, serum 5.2 mmol/L 3.5-5.2 chloride, serum [...] microalbumin, urine 10 0-19 Lab Report: Chlamydia/GC APTIMA/47958, HIV-1/2 Agn/Dominga/66305, RPR (DX) W ... - Chemistry hepatitis B surface antigen NON-REACTIVE NON-REACTIVE Lab Report: Chlamydia/GC APTIMA/18653, HIV-1/2 Agn/Dominga/20466, RPR (DX) W ... - Lab chlamydia DNA probe NOT DETECTED NOT DETECTED Lab Report: Chlamydia/GC APTIMA/44274, HIV-1/2 Agn/Dominga/79924, RPR (DX) W ... - Microbiology Neisseria gonorrhoeae DNA probe NOT DETECTED NOT DETECTED Lab Report: Chlamydia/GC APTIMA/67298, HIV-1/2 Agn/Dominga/33110, RPR (DX) W ... - Serology rapid plasma reagin antibody titer NON-REACTIVE NON-REACTIVE Lab Report: Comp. Metabolic Panel - Chemistry sodium, serum 127 mmol/L 728-259 0879/10/27 potassium, serum 4.1 mmol/L 3.5-5.2 chloride, serum [...] mg/g mg/g{creat} 0-29 cholesterol, serum 131 mg/dL 017-837 5908/06/03 triglyceride, serum, fasting 383 mg/dL 30-200 HDL [...] mg/dL Encounters Code Encounter Date Provider Facility CPT-29246 Level 3 Est. Patient 09:34:56 CDT Alina Castaneda MD PhD [facility] CPT-00510 Level 3 Est. Patient 21:40:19 CDT Mima Erazo APRN [facility] CPT-18608 Level 3 Est. Patient 09:26:40 CDT Marvel MARROQUIN [facility] CPT-75906 Level 3 Est. Patient 12:36:43 CDT Vanessa Hickey MD [facility]-08517 Level 3 Est. Patient 12:57:49 CDT Vanessa Hickey MD [facility]-46321 Level 3 Est. Patient 00:28:25 CDT Alina Castaneda MD [facility]-91649 Level 2 Est. Patient 12:52:14 CDT Alina Castaneda MD [facility]-27342 Level 3 Est. Patient 11:51:18 DIRECTOR COST Alina Castaneda MD [facility] [place]-38949 Level 3 Est. Patient 10:09:22 DIRECTOR COST Alina Castaneda MD [facility]20579 Level 3 Est. Patient 14:36:26 DIRECTOR COST Marvel Charles Formerly named [facility]-87942 Level 3 Est. Patient 13:34:47 DIRECTOR COST Alina Castaneda MD [facility] [place]-47539 Level 3 Est. Patient 19:52:08 DIRECTOR COST Alina Castaneda MD [facility]14139 Level 3 Est. Patient 10:01:51 DIRECTOR COST Marvel Charles Formerly named [facility]-45029 Level 3 Est. Patient 21:54:06 CDT Vanessa Hickey MD [facility]-37485 Level 3 Est. Patient 08:54:46 CDT Alina Castaneda MD [facility]96632 Level 3 Est. Patient 09:32:11 CDT Marvel Charles Formerly named [facility]-52975 Level 3 Est. Patient 12:02:49 CDT Alina Castaneda MD [facility]08505 Level 3 Est. Patient 19:17:33 CDT Alina Castaneda MD [facility]39623 Level 3 Est. Patient 13:19:10 CDT Marvel Charles Formerly named [facility]-62907 Level 3 Est. Patient 08:20:05 CDT Alina Castaneda MD [facility] [place]-95836 Level 3 Est. Patient 15:17:18 CDT Alina Castaneda MD [facility] [place]-75952 Level 3 Est. Patient 14:25:36 DIRECTOR COST Marvel Charles Formerly named [facility]-15685 Level 3 Est. Patient 10:09:15 DIRECTOR COST Marvel Charles Formerly named [facility]-50388 Level 3 Est. Patient 21:28:43 CDT Alina Castaneda MD [facility] [place]-82928 Level 3 Est. Patient 15:20:11 [facility] 4 Est. Patient 19:08:12 CDT Alina Castaneda MD [facility] [place]-37507 Level 3 Est. Patient 15:06:39 CDT Marvel Charles Formerly named [facility]-21736 Level 4 Est. Patient 17:48:15 CDT Alina Castaneda MD [facility] [place]-61857 Level 3 Est. Patient 14:53:49 CDT Alina Castaneda MD [facility] [place]-20529 Level 3 Est. Patient 09:35:16 CDT Ailna Castaneda MD [facility] [place]-40313 Level 3 Est. Patient 12:23:22 CDT Alina Castaneda MD [facility] [place]-28466 Level 3 Est. Patient 16:19:15 CDT Alina Castaneda MD [facility] [place]-08693 Level 3 Est. Patient 21:39:56 DIRECTOR COST Alina Castaneda MD [facility] [place]-07733 Level 4 Est. Patient 14:12:56 DIRECTOR COST Alina Castaneda MD [facility] [place]-26907 Level 2 Est. Patient 15:34:57 DIRECTOR COST Alina Castaneda MD [facility] [place]-06977 Level 3 Est. Patient 12:17:04 DIRECTOR COST Alina Castaneda MD [facility] [place]-74815 Level 3 Est. Patient 09:18:18 DIRECTOR COST Marvel Charles Formerly named [facility]-12101 Level 2 Est. Patient 21:50:24 CDT Alina Castaneda MD [facility] [place]-01136 Level 3 Est. Patient 09:17:28 CDT Marvel Charles Formerly named [facility]-01092 Level 4 Est. Patient 18:54:02 CDT Alina Castaneda MD [facility] [place]-67403 Level 3 Est. Patient 10:47:10 CDT Alina Castaneda MD [facility] [place]-95672 Level 3 Est. Patient 09:22:20 CDT Marvel Charles Formerly named [facility]-98908 Level 3 Est. Patient 16:39:43 CDT Marvel Charles Formerly named [facility]-21350 Level 3 Est. Patient 16:05:16 CDT Alina Castaneda MD [facility] [place]-93764 Level 3 Est. Patient 00:29:15 CDT Alina Castaneda MD [facility] [place]-29302 Level 3 Est. Patient 10:49:22 DIRECTOR COST Marvel Charles Former[facility] named [facility]-06403 Level 3 Est. Patient 21:30:19 DIRECTOR COST Alina Castaneda MD [facility] CPT-76815 Level 4 Est. Patient 17:04:11 DIRECTOR COST Brooksnivia Charles [facility] CPT-42033 Level 3 Est. Patient 15:34:11 DIRECTOR COST Brooksnivia Mackenzieestela [facility] CPT-74651 Level 2 Est. Patient 12:51:58 DIRECTOR COST Alina Castaneda MD [facility] CPT-43310 Level 3 Est. Patient 13:20:01 DIRECTOR COST Alina Castaneda MD [facility] CPT-76707 Level 3 Est. Patient 09:23:35 CDT Alina Castaneda MD [facility] Procedures Code Procedure Name Date Entry Date Standard Description CPT-04524 Bladder Scan 12:36:44 CDT CPT-06402 Bladder Scan 21:54:06 CDT CPT-G0008 Administration of Influenza Virus Vaccine 13:05:26 CDT CPT-49940 Fluzone Quadrivalent Intramuscular Suspension 0.5 ML 13: 05:26 CDT CPT-67140 Administration single or combination vaccine inc oral 11 :49:51 CDT CPT-85860 Pneumovax 11:49:51 CDT CPT-74053 Ribs unilateral 2V 12:37:22 DIRECTOR COST CPT-38369 Chest 2V Frontal and Lat 17:15:26 CDT CPT-76772 Abx/Therapy Injection 18:54:02 CDT CPT-J0696 Rocephin 1000 mg (Ceftriaxone) 16:00:32 CDT CPT-17446 Chest 2V Frontal and Lat 15:26:45 CDT CPT-13662 Chest 2V Frontal and Lat 10:23:27 CDT CPT-74717 Venipuncture Draw Fee 10:11:00 CDT CPT-14099 Administration single or combination vaccine inc oral 11 :56:38 CDT CPT-87959 Influenza split virus > age 3 11:56:38 CDT CPT-11764 Venipuncture Draw Fee 08:49:54 DIRECTOR COST CPT-54436 EKG Trac and Interp 17:54:19 DIRECTOR COST
--- OUTSIDE RECORDS SUMMARY | 2018-07-02 17:29 | XMS REPORT | Clinical Summary ---
Author Author Admin, TERELL Organization [facility] [employer] Address Unknown Phone Unavailable Allergies, Adverse Reactions, 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 Erazo [employer]IENT B[employer]ING SERVICES CLERK Benign paroxysmal positional vertigo Vertigo, benign paroxysmal position 386.11 Inactive Mima Erazo [employer]IENT [employer]ING SERVICES CLERK Benign paroxysmal positional vertigo High-risk sexual behavior V69.2 Active Alina Castaneda MD PhD High-risk sexual behavior Erectile dysfunction 302.72 Active Alina Castaneda MD PhD Psychosexual dysfunction with inhibited sexual excitement Constipation 564.00 Active Alina Castaneda MD PhD Constipation, unspecified Skin lesion 709.9 Active Alina Castaneda MD PhD Unspecified disorder of skin and subcutaneous tissue Malaise and fatigue 780.79 Active Cherelle Speaks [employer]IENT B[employer]ING SERVICES CLERK Other malaise and fatigue Diarrhea 787.91 Active Cherelle Speaks [employer]IENT B[employer]ING SERVICES CLERK Diarrhea PHARYNGITIS 462 Active Cherelle Speaks [employer]IENT B[employer]ING SERVICES CLERK Acute pharyngitis Colitis 558.9 Active Mima Erazo [employer]IENT B[employer]ING SERVICES CLERK Other and unspecified noninfectious gastroenteritis and [...] Patient Instruction EFFEXOR XR 37.5 MG ORAL [id number] Take one by mouth daily VENLAFAXINE HCL 52456849421 Active Mima Vadimum ALBAN Active TRAVATAN Z 0.004 % OPHTH SOLN 1 drop each eye daily TRAVOPROST 63290838185 Active Mima Yokum [employer]IENT B[employer]ING SERVICES CLERK Active FLUVOXAMINE MALEATE 50 MG ORAL TABS 1 tab by mouth daily FLUVOXAMINE MALEATE 68491203498 No Longer Active Mima Vadimum ALBAN Active MORPHINE SULFATE ER 30 MG ORAL CR-TABS Take one capsule BID MORPHINE SULFATE 63656656821 Active Mima Yokum [employer]IENT B[employer]ING SERVICES CLERK Active TRUEPLUS LANCETS 30G MISC 3x a day LANCETS 53273416628 Active Marvel Charlse POWERHOUSE MECHANIC Active TRUE METRIX METER W/DEVICE KIT Check blood sugars 3x/day BLOOD GLUCOSE MONITORING SUPPL 45498601827 Active Marvel Mackenzieglari POWERHOUSE MECHANIC Active TRUE METRIX BLOOD GLUCOSE TEST INVITR STRP Check blood sugars 3x/day. GLUCOSE BLOOD 32585075906 Active Marvel Mackenzieglari POWERHOUSE MECHANIC Active VITAMIN D 2000 UNIT ORAL CAPS Take one by mouth daily CHOLECALCIFEROL 73874203265 Active Mima Yokum [employer]IENT B[employer]ING SERVICES CLERK Active LATUDA 60 MG ORAL TABS Take one by mouth daily LURASIDONE HCL 62597074972 No Longer Active Mima Yokum NEW CLIENT BANKING SERVICES CLERK Active HUMALOG KWIKPEN 100 UNIT/ML SC SOPN sliding scale if needed INSULIN LISPRO (HUMAN) 27682109782 Active Mima Yokum [employer]IENT BANKING SERVICES CLERK Active TRAZODONE HCL 100 MG TABS 1 every night to prevent headaches TRAZODONE HCL 53327402985 Active Gabrielle Madl VEST TAILOR Active LATUDA 60 MG ORAL TABS 1 tab daily LURASIDONE HCL 88419203101 Active Gabrielle Madl VEST TAILOR Active CLONAZEPAM 1 MG TABS 1 pill by mouth three times daily CLONAZEPAM 12037094326 Active Gabrielle Madl VEST TAILOR Active [facility] MILK OF MAGNESIA 400 MG/5ML ORAL SUSP 30ml by mouth bid prn MAGNESIUM HYDROXIDE 63335628458 Active Mason Loredo MD Active TYLENOL 8 HOUR 650 MG ORAL CR-TABS 1 tab QID prn ACETAMINOPHEN 67131137789 Active Mason Loredo MD Active MYLANTA GAS RELIEF MAXIMUM STR 125 MG ORAL CAPS 30cc every 4 hours prn 12/01 SIMETHICONE 55134648777 Active Mason Loredo MD Active IMODIUM A-D 2 MG ORAL TABS 1 tab QID as needed LOPERAMIDE HCL 21955521513 Active Mason Loredo MD Active TRAVATAN Z 0.004 % SOLN 1 gtt each eye daily TRAVOPROST 23917993103 No Longer Active Mason Loredo MD Active LISINOPRIL 20 MG TABS 1 BID LISINOPRIL 45654296291 No Longer Active Mason Loredo MD Active LEVEMIR FLEXTOUCH 100 UNIT/ML SC SOPN 60 units SQ each evening, for diabetes INSULIN DETEMIR 08185837444 Active Mima Erazo APRN Active ZOLPIDEM TARTRATE 10 MG TABS take at bedtime ZOLPIDEM TARTRATE 59695537896 No Longer Active Mason Loredo MD Active HYDROCODONE-ACETAMINOPHEN 5-325 MG TABS 2 tabs by mouth three times daily for pain HYDROCODONE-ACETAMINOPHEN 98428925657 No Longer Active Mason Loredo MD Active ZOFRAN 4 MG TABS 1 po q4hr PRN Nausea ONDANSETRON HCL 42622037981 No Longer Active Mason Loredo MD Active LOMOTIL 2.5-0.025 MG ORAL TABS take 1-2 tabs PO after each stool, no more than 8 in 24 hours DIPHENOXYLATE-ATROPINE 72236125657 No Longer Active Mason Loredo MD Active COLACE 100 MG CAPS 1 pill by mouth twice daily, for constipation DOCUSATE SODIUM 68713582705 No Longer Active Mima Erazo APRN Active FLONASE ALLERGY RELIEF 50 MCG/ACT NASAL SUSP One spray each nostril BID x 1 week then daily FLUTICASONE PROPIONATE 88261525617 Active Mima Erazo APRN Active BD PEN NEEDLE MINI U/F 31G X 5 MM MISC 4 a day INSULIN PEN NEEDLE 95039913531 Active Marvel MARROQUIN Active AMITIZA 24 MCG ORAL CAPS Take one capsule BID for constipation LUBIPROSTONE 00067656275 Active Mima Erazo APRN Active TRUEPLUS LANCETS 30G MISC 3 a day LANCETS 67300453494 Active Marvel MARROQUIN Active TOLTERODINE TARTRATE 2 MG TABS 1 pill twice daily, for bladder TOLTERODINE TARTRATE 01316651440 No Longer Active Vanessa Hickey MD Active AMITIZA 24 MCG ORAL CAPS Take one capsule BID for constipation. LUBIPROSTONE 63649275135 No Longer Active Vanessa Hickey MD Active FLUVOXAMINE MALEATE 100 MG ORAL TABS take one tab every AM et HS, and take 1/ 2 tab at noon FLUVOXAMINE MALEATE 31903634079 Active Grace Azam RMA Active METOPROLOL SUCCINATE 100 MG [id number] 1 by mouth daily for blood pressure METOPROLOL SUCCINATE 30734152195 No Longer Active Grace Azam RMA Active METFORMIN HCL ER 500 MG [id number] Take three tablets by mouth everyday METFORMIN HCL 75358742212 No Longer Active Grace Azam RMA Active LOVAZA 1 GM CAPS 4 daily (for triglycerides) OMEGA-3- ACID ETHYL ESTERS 11783715651 No Longer Active Grace Azam RMA Active TRAZODONE HCL 100 MG ORAL TABS 1 tab by mouth for sleep TRAZODONE HCL 85093906822 No Longer Active Grace Azam RMA Active NOVOFINE 32G X 6 MM MISC use one four times per day INSULIN PEN NEEDLE 57349846386 No Longer Active Grace Azam RMA Active BACTROBAN 2 % CREAM Apply to affected area BID for up to 10 days MUPIROCIN CALCIUM 80242078928 No Longer Active Grace Azam RMA Active KEFLEX 500 MG CAP 1 po BID x 7 days CEPHALEXIN 61150561085 No Longer Active Cherelle Avila APRN Active FLUVOXAMINE MALEATE 100 MG TABS Take one (1) tablet by mouth am, 1/2 at noon FLUVOXAMINE MALEATE 36027059657 No Longer Active Mimacecily Erazo NEW CLIENT BANKING SERVICES CLERK Active CORICIDIN HBP CONGESTION/COUGH 10-200 MG ORAL CAPS Take as directed on box as needed for cold/flu symptoms DEXTROMETHORPHAN-GUAIFENESIN 15349282953 Active Cherelle Speaks NEW CLIENT BANKING SERVICES CLERK Active OMEGA-3 300 MG ORAL CAPS 4 caps by mouth daily OMEGA-3 FATTY ACIDS 74330622840 Active Mima Yokum NEW CLIENT BANKING SERVICES CLERK Active FLUVOXAMINE MALEATE 100 MG ORAL TABS Take 1/2 tab at noon FLUVOXAMINE MALEATE 04082717328 No Longer Active Cherelle Avila ALBAN Active [facility] LUBRICANT EYE DROPS 0.4-0.3 % OPHTH SOLN POLYETHYL GLYCOL-PROPYL GLYCOL 39355342032 Active Mima Erazo NEW CLIENT BANKING SERVICES CLERK Active MIRALAX POWD 17g by mouth daily, for constipation POLYETHYLENE GLYCOL 3350 73657813548 Active Alian Castaneda MD PhD Active TRUETEST TEST STRP check blood sugars 3x/day GLUCOSE BLOOD 20942705358 Active Maliheh Ziglari POWERHOUSE MECHANIC Active ACCU-CHEK ROSA UZMA Use device to check blood sugars BLOOD GLUCOSE MONITORING SUPPL 55961027539 No Longer Active Maliheh Ziglari POWERHOUSE MECHANIC Active ACCU-CHEK ROSA INVITR STRP use strips with device to check blood sugars 3 times daily GLUCOSE BLOOD 22831953332 No Longer Active [employer] HReh Ziglari POWERHOUSE MECHANIC Active VERAPAMIL HCL ER 180 MG ORAL CR-TABS 1 pill by mouth twice daily, for migraine prevention VERAPAMIL HCL 07358647576 Active Mima Erazo APRN Active CYCLOBENZAPRINE HCL 10 MG TABS 1 tablet by mouth three times daily, scheduled CYCLOBENZAPRINE HCL 28648024134 No Longer Active Alina Castaneda MD PhD Active HUMALOG 100 UNIT/ML SOLN Take 20 units with breakfast, 10u with lunch and suppetr. INSULIN LISPRO (HUMAN) 74552020722 No Longer Active Alina Castaneda MD PhD Active TRUETEST TEST STRP check sugars 4x/day GLUCOSE BLOOD 90150002260 No Longer Active Alina Castaneda MD PhD Active MORPHINE SULFATE 30 MG TABS 1 pill by mouth twice daily, for pain MORPHINE SULFATE 71650825552 No Longer Active Mason Loredo MD Active ACYCLOVIR 400 MG ORAL TABS 1 pill three times daily x 5 days, for cold sore outbreak ACYCLOVIR 43414657055 No Longer Active Alina Castaneda MD PhD Active PENICILLIN V POTASSIUM 500 MG TABS 1 pill by mouth three times daily PENICILLIN V POTASSIUM 83377590773 No Longer Active Alina Castaneda MD PhD Active UROXATRAL 10 MG [id number] Take 1 tablet by mouth daily ALFUZOSIN HCL 87895440824 No Longer Active Alina Castaneda MD PhD Active THIOTHIXENE 5 MG CAPS by mouth twice a day THIOTHIXENE 20965824793 No Longer Active Alina Castaneda MD PhD Active ZYPREXA 7.5 MG TABS 1 at HS OLANZAPINE 58865113283 No Longer Active Alina Castaneda MD PhD Active BD INSULIN SYRINGE 28G X 1/2" 1 ML MISC 1 four times per day INSULIN SYRINGE-NEEDLE U-100 60123216094 Active Marvel Charles POWERHOUSE MECHANIC Active DETROL LA 4 MG [id number]-UWP Take 1 tablet by mouth daily TOLTERODINE TARTRATE 52340450904 No Longer Active Alina Castaneda MD PhD Active TERESE CONTOUR TEST STRP monitor blood sugars 3x/day GLUCOSE BLOOD 25589629492 No Longer Active Alina Castaneda MD PhD Active EQL TRUETEST TEST STRP Test blood sugar TID GLUCOSE BLOOD 66057646597 No Longer Active Alina Castaneda MD PhD Active FLUTICASONE PROPIONATE 50 MCG/ACT SUSP 2 sprays each nostril qDay x 30 days FLUTICASONE PROPIONATE 80148229243 No Longer Active Alina Castaneda MD PhD Active IBUPROFEN 200 MG TABS 1 Q 6 hr. PRN IBUPROFEN 52678038819 No Longer Active Alina Castaneda MD PhD Active NIACIN ER 500 MG CR-TABS 4 qHS (for triglycerides) NIACIN 93341132456 No Longer Active Alina Castaneda MD PhD Active ALFUZOSIN HCL ER 10 MG [id number] 1 tablet daily ALFUZOSIN HCL 62373488896 Active Mima Erazo NEW CLIENT BANKING SERVICES CLERK Active SAPHRIS 5 MG SUBL by mouth twice a day ASENAPINE MALEATE 41529674588 No Longer Active Marvel Mackenzieglari POWERHOUSE MECHANIC Active ACETAMINOPHEN 500 MG TABS 2 Q 6 hr. PRN ACETAMINOPHEN 91500044214 No Longer Active Maliheh Ziglari POWERHOUSE MECHANIC Active ORPHENADRINE CITRATE ER 100 MG [id number] 1 every 12 hr. as needed ORPHENADRINE CITRATE 71547851453 No Longer Active Alina Castaneda MD PhD Active NIACIN CR 500 MG CR-TABS 2 qHS NIACIN 54715052315 No Longer Active Alina Castaneda MD PhD Active AMOXICILLIN 500 MG CAPS 2 po BID x 10 days AMOXICILLIN 89806452972 No Longer Active Alina Castaneda MD PhD Active HYDROCODONE-ACETAMINOPHEN 7.5-325 MG TABS 1 four times a day as needed for pain HYDROCODONE-ACETAMINOPHEN 91179891140 No Longer Active Alina Castaneda MD PhD Active DOXEPIN HCL 10 MG CAPS Take 1 tablet by mouth daily DOXEPIN HCL 50801144117 No Longer Active Salina Han [facility] Active NAVANE 10 MG CAPS 1/2 tablet twice a day THIOTHIXENE No Longer Active Salina Han [facility] Active CYCLOBENZAPRINE HCL 10 MG TABS 1/2 tablet by mouth every 8 hours as needed for muscle spasms CYCLOBENZAPRINE HCL 49251416787 No Longer Active Alina Castaneda MD PhD Active BACTROBAN 2 % CREAM apply to ear and nose twice daily MUPIROCIN CALCIUM 21166951569 No Longer Active Alina Castaneda MD PhD Active HYDROCODONE-ACETAMINOPHEN 5-325 MG TABS take one tablet by mouth every four hours as needed for pain HYDROCODONE-ACETAMINOPHEN 42435187146 No Longer Active Alina Castaneda MD PhD Active ZYPREXA 5 MG TABS take one tablet by mouth every evening OLANZAPINE 63646354197 No Longer Active Alina Castaneda MD PhD Active ALBUTEROL SULFATE 0.083 % NEBU SOLN one vial per nebulizer TID and PRN cough/ soa ALBUTEROL SULFATE 37525943853 No Longer Active Alina Castaneda MD PhD Active GUAIFENESIN 600 MG [id number] 1 tablet by mouth twice daily if needed for cough GUAIFENESIN 76496928339 No Longer Active Marvel MARROQUIN Active AZITHROMYCIN 500 MG SOLR 1 po q day AZITHROMYCIN 49626027988 No Longer Active Alina Castaneda MD PhD Active PROMETHAZINE-CODEINE 6.25-10 MG/5ML SYRP 1 tsp po q 6 hours prn cough PROMETHAZINE-CODEINE 65746858227 No Longer Active Alina Castaneda MD PhD Active CEFDINIR 300 MG CAPS by mouth twice a day CEFDINIR 16095873922 No Longer Active Alina Castaneda MD PhD Active METFORMIN HCL 500 MG DN97H-UCM Take 3 tablets by mouth everyday METFORMIN HCL 99661413094 No Longer Active Alina Castaneda MD PhD Active LEVEMIR 100 UNIT/ML SOLN 90 units SQ qHS INSULIN DETEMIR 60954451233 No Longer Active Marvel MARROQUIN Active TOPROL XL 100 MG [id number] 1 @ HS METOPROLOL SUCCINATE 74029481035 No Longer Active Marvel MARROQUIN Active ALLOPURINOL 300 MG TABS Take one by mouth daily ALLOPURINOL 00394884169 Active Mima Yoeloinaum [employer]IENT BANKING SERVICES CLERK Active ZYPREXA 10 MG TABS Take one by mouth daily OLANZAPINE 70004441358 No Longer Active Alina Castaneda MD PhD Active NOVOLOG 100 UNIT/ML SOLN 40 units with every meal INSULIN ASPART 00233219132 No Longer Active Alina Castaneda MD PhD Active VERAPAMIL HCL CR 120 MG TAB CR 1 qPM VERAPAMIL HCL 77543076035 No Longer Active Salina Han RMA Active ZYPREXA 15 MG TABS Take 1 tablet by mouth daily OLANZAPINE 10661276326 No Longer Active Marvel MENDOZAP Active ALBUTEROL SULFATE (2.5 MG/3ML) 0.083% NEBU 1 neb tid and prn cough ALBUTEROL SULFATE 97734821745 No Longer Active Alina Castaneda MD PhD Active LANTUS 100 UNIT/ML SOLN 60 units sq q hs INSULIN GLARGINE 82971395674 No Longer Active CRYSTAL Suarez Active ALBUTEROL SULFATE (2.5 MG/3ML) 0.083% NEBU 1 neb tid and prn cough ALBUTEROL SULFATE (2.5 MG/3ML) 0.083% NEBU 601026 ALBUTEROL SULFATE Inactive ZYPREXA 15 MG TABS Take 1 tablet by mouth daily ZYPREXA 15 MG TABS 661246 OLANZAPINE Inactive VERAPAMIL HCL CR 120 MG TAB CR 1 qPM VERAPAMIL HCL CR 120 MG TAB CR VERAPAMIL HCL Inactive ZYPREXA 10 MG TABS Take one by mouth daily ZYPREXA 10 MG TABS 113662 OLANZAPINE Inactive TOPROL XL 100 MG [id number] 1 @ HS TOPROL XL 100 MG FP17H-HKJ METOPROLOL SUCCINATE Inactive LEVEMIR 100 UNIT/ML SOLN 90 units SQ qHS LEVEMIR 100 UNIT/ML SOLN INSULIN DETEMIR Inactive PROMETHAZINE-CODEINE 6.25-10 MG/5ML SYRP 1 tsp po q 6 hours prn cough PROMETHAZINE-CODEINE 6.25-10 MG/5ML SYRP 834516 PROMETHAZINE- CODEINE Inactive GUAIFENESIN 600 MG [id number]-KNW 1 tablet by mouth twice daily if needed for cough GUAIFENESIN 600 MG BH73J-YRA GUAIFENESIN Inactive ALBUTEROL SULFATE 0.083 % NEBU SOLN one vial per nebulizer TID and PRN cough/ soa ALBUTEROL SULFATE 0.083 % NEBU SOLN 904993 ALBUTEROL SULFATE Inactive ZYPREXA 5 MG TABS take one tablet by mouth every evening ZYPREXA 5 MG TABS 196123 OLANZAPINE Inactive HYDROCODONE-ACETAMINOPHEN 5-325 MG TABS take one tablet by mouth every four hours as needed for pain HYDROCODONE-ACETAMINOPHEN 5-325 MG TABS 725837 HYDROCODONE-ACETAMINOPHEN Inactive BACTROBAN 2 % CREAM apply to ear and nose twice daily BACTROBAN 2 % CREAM 990524 MUPIROCIN CALCIUM Inactive CYCLOBENZAPRINE HCL 10 MG TABS 1/2 tablet by mouth every 8 hours as needed for muscle spasms CYCLOBENZAPRINE HCL 10 MG TABS 318204 CYCLOBENZAPRINE HCL Inactive NAVANE 10 MG CAPS 1/2 tablet twice a day NAVANE 10 MG CAPS THIOTHIXENE Inactive DOXEPIN HCL 10 MG CAPS Take 1 tablet by mouth daily DOXEPIN HCL 10 MG CAPS 6910564 DOXEPIN HCL Inactive HYDROCODONE-ACETAMINOPHEN 7.5-325 MG TABS 1 four times a day as needed for pain HYDROCODONE-ACETAMINOPHEN 7.5-325 MG TABS 934721 HYDROCODONE-ACETAMINOPHEN Inactive NIACIN CR 500 MG CR-TABS 2 qHS NIACIN CR 500 MG CR- TABS NIACIN Inactive ORPHENADRINE CITRATE ER 100 MG [id number] 1 every 12 hr. as needed ORPHENADRINE CITRATE ER 100 MG [id number]-LOL ORPHENADRINE CITRATE Inactive ACETAMINOPHEN 500 MG TABS 2 Q 6 hr. PRN ACETAMINOPHEN 500 MG TABS 663791 ACETAMINOPHEN Inactive SAPHRIS 5 MG SUBL by mouth twice a day SAPHRIS 5 MG SUBL ASENAPINE MALEATE Inactive NIACIN ER 500 MG CR-TABS 4 qHS (for triglycerides) NIACIN ER 500 MG CR-TABS NIACIN Inactive IBUPROFEN 200 MG TABS 1 Q 6 hr. PRN IBUPROFEN 200 MG TABS 153015 IBUPROFEN Inactive FLUTICASONE PROPIONATE 50 MCG/ACT SUSP 2 sprays each nostril qDay x 30 days FLUTICASONE PROPIONATE 50 MCG/ACT SUSP 9252066 FLUTICASONE PROPIONATE Inactive EQL TRUETEST TEST STRP Test blood sugar TID EQL TRUETEST TEST STRP GLUCOSE BLOOD Inactive TERESE CONTOUR TEST STRP monitor blood sugars 3x/day TERESE CONTOUR TEST STRP GLUCOSE BLOOD Inactive DETROL LA 4 MG [id number]-[id number] Take 1 tablet by mouth daily DETROL LA 4 MG [id number]-UPT TOLTERODINE TARTRATE Inactive ZYPREXA 7.5 MG TABS 1 at HS ZYPREXA 7.5 MG TABS 639597 OLANZAPINE Inactive THIOTHIXENE 5 MG CAPS by mouth twice a day THIOTHIXENE 5 MG CAPS 580505 THIOTHIXENE Inactive UROXATRAL 10 MG CV63H-CMP Take 1 tablet by mouth daily UROXATRAL 10 MG JA53I-CHL ALFUZOSIN HCL Inactive ACYCLOVIR 400 MG ORAL TABS 1 pill three times daily x 5 days, for cold sore outbreak ACYCLOVIR 400 MG ORAL TABS 964329 ACYCLOVIR Inactive TRUETEST TEST STRP check sugars 4x/day TRUETEST TEST STRP GLUCOSE BLOOD Inactive HUMALOG 100 UNIT/ML SOLN Take 20 units with breakfast, 10u with lunch and suppetr. HUMALOG 100 UNIT/ML SOLN INSULIN LISPRO ( HUMAN) Inactive CYCLOBENZAPRINE HCL 10 MG TABS 1 tablet by mouth three times daily, scheduled CYCLOBENZAPRINE HCL 10 MG TABS 777196 CYCLOBENZAPRINE HCL Inactive ACCU-CHEK ROSA INVITR STRP use strips with device to check blood sugars 3 times daily ACCU-CHEK ROSA INVITR STRP GLUCOSE BLOOD Inactive ACCU-CHEK ROSA UZMA Use device to check blood sugars ACCU-CHEK ROSA UZMA BLOOD GLUCOSE MONITORING SUPPL Inactive FLUVOXAMINE MALEATE 100 MG ORAL TABS Take 1/2 tab at noon FLUVOXAMINE MALEATE 100 MG ORAL TABS 589235 FLUVOXAMINE MALEATE Inactive FLUVOXAMINE MALEATE 100 MG TABS Take one (1) tablet by mouth am, 1/2 at noon FLUVOXAMINE MALEATE 100 MG TABS 019784 FLUVOXAMINE MALEATE Inactive BACTROBAN 2 % CREAM Apply to affected area BID for up to 10 days BACTROBAN 2 % CREAM 351639 MUPIROCIN CALCIUM Inactive NOVOFINE 32G X 6 MM MISC use one four times per day NOVOFINE 32G X 6 MM MISC INSULIN PEN NEEDLE Inactive TRAZODONE HCL 100 MG ORAL TABS 1 tab by mouth for sleep TRAZODONE HCL 100 MG ORAL TABS 562643 TRAZODONE HCL Inactive LOVAZA 1 GM CAPS 4 daily (for triglycerides) LOVAZA 1 GM CAPS 613121 TXELE-2-RKHT ETHYL ESTERS Inactive METFORMIN HCL ER 500 MG [id number]-MWK Take three tablets by mouth everyday METFORMIN HCL ER 500 MG ES39H-ZRQ METFORMIN HCL Inactive METOPROLOL SUCCINATE 100 MG XH95Q-VVF 1 by mouth daily for blood pressure METOPROLOL SUCCINATE 100 MG DJ40M-EFJ METOPROLOL SUCCINATE Inactive AMITIZA 24 MCG ORAL CAPS Take one capsule BID for constipation. AMITIZA 24 MCG ORAL CAPS LUBIPROSTONE Inactive TOLTERODINE TARTRATE 2 MG TABS 1 pill twice daily, for bladder TOLTERODINE TARTRATE 2 MG TABS 821023 TOLTERODINE TARTRATE Inactive COLACE 100 MG CAPS 1 pill by mouth twice daily, for constipation COLACE 100 MG CAPS 5624111 DOCUSATE SODIUM Inactive LOMOTIL 2.5-0.025 MG ORAL TABS take 1-2 tabs PO after each stool, no more than 8 in 24 hours LOMOTIL 2.5-0.025 MG ORAL TABS 2104932 DIPHENOXYLATE-ATROPINE Inactive ZOFRAN 4 MG TABS 1 po q4hr PRN Nausea ZOFRAN 4 MG TABS 091852 ONDANSETRON HCL Inactive HYDROCODONE-ACETAMINOPHEN 5-325 MG TABS 2 tabs by mouth three times daily for pain HYDROCODONE-ACETAMINOPHEN 5-325 MG TABS 340221 HYDROCODONE-ACETAMINOPHEN Inactive ZOLPIDEM TARTRATE 10 MG TABS take at bedtime ZOLPIDEM TARTRATE 10 MG TABS 984138 ZOLPIDEM TARTRATE Inactive LISINOPRIL 20 MG TABS 1 BID LISINOPRIL 20 MG TABS 699056 LISINOPRIL Inactive TRAVATAN Z 0.004 % SOLN 1 gtt each eye daily TRAVATAN Z 0.004 % SOLN TRAVOPROST Inactive LATUDA 60 MG ORAL TABS Take one by mouth daily LATUDA 60 MG ORAL TABS LURASIDONE HCL Inactive FLUVOXAMINE MALEATE 50 MG ORAL TABS 1 tab by mouth daily FLUVOXAMINE MALEATE 50 MG ORAL TABS 286166 FLUVOXAMINE MALEATE Inactive CEFDINIR 300 MG CAPS by mouth twice a day CEFDINIR 300 MG CAPS 113734 CEFDINIR Inactive AZITHROMYCIN 500 MG SOLR 1 po q day AZITHROMYCIN 500 MG SOLR 31333158320 AZITHROMYCIN Inactive AMOXICILLIN 500 MG CAPS 2 po BID x 10 days AMOXICILLIN 500 MG CAPS 224083 AMOXICILLIN Inactive PENICILLIN V POTASSIUM 500 MG TABS 1 pill by mouth three times daily PENICILLIN V POTASSIUM 500 MG TABS 183354 PENICILLIN V POTASSIUM Inactive KEFLEX 500 MG CAP 1 po BID x 7 days KEFLEX 500 MG CAP 008288 CEPHALEXIN Inactive Immunizations Vaccine Administration Date Value [...] Fluvirin, Fluarix, Agriflu(>=18 yo)) Fluzone (>3 yrs.) [AKQ259] Influenza, seasonal, injectable pneumococcal immunization administered Pneumovax [...] HGBA1C - Chemistry sodium, serum 140 mmol/L 237-275 1769/11/09 potassium, serum 4.0 mmol/L 3.5-5.2 chloride, serum [...] Acid - Chemistry cholesterol, serum 187 mg/dL 621-190 6488/06/14 triglyceride, serum, fasting 246 mg/dL 30-200 HDL [...] negative Encounters Code Encounter Date Provider Facility CPT-[id number] Level 3 Est. Patient 09:12:14 REGULATORY COMPLIANCE MANAGER Mima Jeffliudmila [facility] CPT-12337 Level 3 Est. Patient 16:52:51 CDT Vanessa Hickey MD [facility]-50255 Level 3 Est. Patient 17:40:16 CDT Mima Erazo [facility]-59145 Level 3 Est. Patient 14:34:52 CDT Vanessa Hickey MD [facility]-95127 Level 3 Est. Patient 16:27:51 CDT Mima Erazo [facility]-58034 Level 3 Est. Patient 14:39:00 REGULATORY COMPLIANCE MANAGER Vanessa Hickey MD [facility]-71271 Level 2 Est. Patient 18:43:34 CDT Mima Erazo [facility] CPT-06637 Level 3 Est. Patient 16:22:09 CDT Cherelle Avila [facility] CPT-71754 Level 4 Est. Patient 17:55:14 CDT Mima Erazo [facility] CPT-55309 Level 2 Est. Patient 17:13:21 CDT Alina Castaneda MD [facility] CPT-69613 Level 3 Est. Patient 14:46:15 CDT Vanessa Hickey MD [facility]-76404 Level 3 Est. Patient 09:34:56 CDT Alina Castaneda MD [facility]-90353 Level 3 Est. Patient 21:40:19 CDT Mima Jeffeloinajerrell [facility] CPT-24473 Level 3 Est. Patient 09:26:40 CDT Marvel Charles [facility]-36399 Level 3 Est. Patient 12:36:43 CDT Vanessa Hickey MD [facility]-00405 Level 3 Est. Patient 12:57:49 CDT Vanessa Hickey MD [facility]-30458 Level 3 Est. Patient 00:28:25 CDT Alina Castaneda MD [facility]20456 Level 2 Est. Patient 12:52:14 CDT Alina Castaneda MD [facility]-80996 Level 3 Est. Patient 11:51:18 REGULATORY COMPLIANCE MANAGER Alina Castaneda MD [facility] [place]-22011 Level 3 Est. Patient 10:09:22 REGULATORY COMPLIANCE MANAGER Alina Castaneda MD [facility]91651 Level 3 Est. Patient 14:36:26 REGULATORY COMPLIANCE MANAGER Marvel Charles [facility]-49423 Level 3 Est. Patient 13:34:47 REGULATORY COMPLIANCE MANAGER Alina Castaneda MD [facility] [place]-90520 Level 3 Est. Patient 19:52:08 REGULATORY COMPLIANCE MANAGER Alina Castaneda MD [facility] [place]-02652 Level 3 Est. Patient 10:01:51 REGULATORY COMPLIANCE MANAGER Marvel Charles [facility]-25630 Level 3 Est. Patient 21:54:06 CDT Vanessa Hickey MD [facility]-68645 Level 3 Est. Patient 08:54:46 CDT Alina Castaneda MD [facility] [place]-63297 Level 3 Est. Patient 09:32:11 CDT Marvel Charles [facility]-60659 Level 3 Est. Patient 12:02:49 CDT Alina Castaneda MD [facility]36524 Level 3 Est. Patient 19:17:33 CDT Alina Castaneda [facility] [id number] Level 3 Est. Patient 13:19:10 CDT [facility] [place]-17777 Level 3 Est. Patient 08:20:05 CDT Alina Castaneda MD [facility] [place]-28657 Level 3 Est. Patient 15:17:18 CDT Alina Castaneda MD [facility] [place]-89396 Level 3 Est. Patient 14:25:36 REGULATORY COMPLIANCE MANAGER [facility] [place]-00147 Level 3 Est. Patient 10:09:15 REGULATORY COMPLIANCE MANAGER [facility] [place]-90946 Level 3 Est. Patient 21:28:43 CDT Alina Castaneda MD [facility] [place]-65347 Level 3 Est. Patient 15:20:11 CDT [facility] [place]-85697 Level 4 Est. Patient 19:08:12 CDT Alina Castaneda MD [facility] [place]-63600 Level 3 Est. Patient 15:06:39 CDT [facility] [place]-67057 Level 4 Est. Patient 17:48:15 CDT Alina Castaneda MD [facility] [place]-88132 Level 3 Est. Patient 14:53:49 CDT Alina Castaneda MD [facility] [place]-48978 Level 3 Est. Patient 09:35:16 CDT Alina Castaneda MD [facility] [place]-09293 Level 3 Est. Patient 12:23:22 CDT Alina Castaneda MD [facility] [place]-09656 Level 3 Est. Patient 16:19:15 CDT Alina Castaneda MD [facility] [place]-90019 Level 3 Est. Patient 21:39:56 REGULATORY COMPLIANCE MANAGER Alina Castaneda MD [facility] [place]-74776 Level 4 Est. Patient 14:12:56 REGULATORY COMPLIANCE MANAGER Alina Castaneda MD [facility] [place]-54727 Level 2 Est. Patient 15:34:57 REGULATORY COMPLIANCE MANAGER Alina Castaneda MD [facility] [place]-42108 Level 3 Est. Patient 12:17:04 REGULATORY COMPLIANCE MANAGER Alina Castaneda MD [facility]38902 Level 3 Est. Patient 09:18:18 REGULATORY COMPLIANCE MANAGER [facility] [place]-38794 Level 2 Est. Patient 21:50:24 CDT Alina Castaneda MD [facility] [place]-33660 Level 3 Est. Patient 09:17:28 CDT [facility] [place]-42016 Level 4 Est. Patient 18:54:02 CDT Alina Castaneda MD [facility] [place]-58567 Level 3 Est. Patient 10:47:10 CDT Alina Castaneda MD [facility] [place]-94119 Level 3 Est. Patient 09:22:20 CDT [facility] [place]-25147 Level 3 Est. Patient 16:39:43 CDT [facility] [place]-49696 Level 3 Est. Patient 16:05:16 CDT Alina Castaneda MD [facility] [place]-27698 Level 3 Est. Patient 00:29:15 CDT Alina [facility] MD [facility]19200 Level 3 Est. Patient 10:49:22 REGULATORY COMPLIANCE MANAGER [facility] [place]-03766 Level 3 Est. Patient 21:30:19 REGULATORY COMPLIANCE MANAGER Alina Castaneda MD [facility] CPT-77446 Level 4 Est. Patient 17:04:11 REGULATORY COMPLIANCE MANAGER [facility] CPT-90641 Level 3 Est. Patient 15:34:11 REGULATORY COMPLIANCE MANAGER [facility] CPT-34158 Level 2 Est. Patient 12:51:58 REGULATORY COMPLIANCE MANAGER Alina Castaneda MD [facility] CPT-96852 Level 3 Est. Patient 13:20:01 REGULATORY COMPLIANCE MANAGER Alina Castaneda MD [facility] CPT-24242 Level 3 Est. Patient 09:23:35 CDT Alina Castaneda MD [facility] Procedures Code Procedure Name Date Entry Date Standard Description CPT-86265 HGBA1C - LAB USE ONLY 09:30:27 REGULATORY COMPLIANCE MANAGER CPT-41050 BMP - LAB USE ONLY 09:30:27 REGULATORY COMPLIANCE MANAGER CPT-05568 Venipuncture Draw Fee 09:30:26 REGULATORY COMPLIANCE MANAGER CPT-TCMM Transitional Care Mgmt-Moderate 10:25:31 CDT CPT-59338 Bladder Scan 14:34:53 CDT CPT-35315 Bladder Scan 14:39:01 REGULATORY COMPLIANCE MANAGER CPT-TCMM Transitional Care Mgmt-Moderate 10:30:19 REGULATORY COMPLIANCE MANAGER CPT-36756 Bladder Scan 12:36:44 CDT CPT-16150 Bladder Scan 21:54:06 CDT CPT-G0008 Administration of Influenza Virus Vaccine 13:05:26 CDT CPT-29308 Fluzone Quadrivalent Intramuscular Suspension 0.5 ML 13: 05:26 CDT CPT-24731 Administration single or combination vaccine inc oral 11 :49:51 CDT CPT-34625 Pneumovax 11:49:51 CDT CPT-30507 Ribs unilateral 2V 12:37:22 REGULATORY COMPLIANCE MANAGER CPT-62546 Chest 2V Frontal and Lat 17:15:26 CDT CPT-29512 Abx/Therapy Injection 18:54:02 CDT CPT-J0696 Rocephin 1000 mg (Ceftriaxone) 16:00:32 CDT CPT-10355 Chest 2V Frontal and Lat 15:26:45 CDT CPT-63388 Chest 2V Frontal and Lat 10:23:27 CDT CPT-81769 Venipuncture Draw Fee 10:11:00 CDT CPT-83479 Administration single or combination vaccine inc oral 11 :56:38 CDT CPT-80375 Influenza split virus > age 3 11:56:38 CDT CPT-10144 Venipuncture Draw Fee 08:49:54 REGULATORY COMPLIANCE MANAGER CPT-10299 EKG Trac and Interp 17:54:19 REGULATORY COMPLIANCE MANAGER
--- OUTSIDE RECORDS SUMMARY | 2018-07-02 17:31 | XMS REPORT | Clinical Summary ---
Author Author Admin, TERELL Organization [facility] [employer] Address Unknown Phone Unavailable Allergies, Adverse 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 Erazo NUMERICAL TOOL PROGRAMMER Benign paroxysmal positional vertigo Vertigo, benign paroxysmal position 386.11 Inactive Mima Erazo NUMERICAL TOOL PROGRAMMER Benign paroxysmal positional vertigo High-risk sexual behavior V69.2 Active Alina Castaneda MD PhD High-risk sexual behavior Erectile dysfunction 302.72 Active Alina Castaneda MD PhD Psychosexual dysfunction with inhibited sexual excitement Constipation 564.00 Active Alina Castaneda MD PhD Constipation, unspecified Skin lesion 709.9 Active Alina Castaneda MD PhD Unspecified disorder of skin and subcutaneous tissue Malaise and fatigue 780.79 Active Cherelle Speaks NUMERICAL TOOL PROGRAMMER Other malaise and fatigue Diarrhea 787.91 Active Cherelle Speaks NUMERICAL TOOL PROGRAMMER Diarrhea PHARYNGITIS 462 Active Cherelle Speaks NUMERICAL TOOL PROGRAMMER Acute pharyngitis Colitis 558.9 Active Mima Erazo NUMERICAL TOOL PROGRAMMER Other and unspecified noninfectious gastroenteritis and colitis [...] PhD PNEUMONIA, ORGANISM UNSPECIFIED ICD-486 Inactive Alina Castaenda MD PhD RIB PAIN, RIGHT SIDED ICD-786.50 [...] Generic Name NDC Status Provider Patient Instruction TRUE [facility] Check blood sugars 3x/day. GLUCOSE BLOOD [id number] Active Marvel Charles FLAME CUTTER Active VITAMIN D 2000 UNIT ORAL CAPS Take one by mouth daily CHOLECALCIFEROL 08234148770 Active Mima Yokum NUMERICAL TOOL PROGRAMMER Active LATUDA 60 MG ORAL TABS Take one by mouth daily LURASIDONE HCL 22857887569 No Longer Active Mima Yokum NUMERICAL TOOL PROGRAMMER Active HUMALOG KWIKPEN 100 UNIT/ML SC SOPN sliding scale if needed INSULIN LISPRO (HUMAN) 17694153648 Active Mima Yokum NUMERICAL TOOL PROGRAMMER Active MORPHINE SULFATE 30 MG ORAL TABS by mouth twice a day MORPHINE SULFATE 69528369227 Active Mima Yokum NUMERICAL TOOL PROGRAMMER Active TRAZODONE HCL 100 MG TABS 1 every night to prevent headaches TRAZODONE HCL 31098630418 Active Gabrielle Madl BUSINESS ADMINISTRATOR Active LATUDA 60 MG ORAL TABS 1 tab daily LURASIDONE HCL 25436899390 Active Gabrielle Madl BUSINESS ADMINISTRATOR Active CLONAZEPAM 1 MG TABS 1 pill by mouth three times daily CLONAZEPAM 69205859727 Active Gabrielle Madl BUSINESS ADMINISTRATOR Active [facility] MILK OF MAGNESIA 400 MG/5ML ORAL SUSP 30ml by mouth bid prn MAGNESIUM HYDROXIDE 66663067070 Active Mason Loredo MD Active TYLENOL 8 HOUR 650 MG ORAL CR-TABS 1 tab QID prn ACETAMINOPHEN 05973111479 Active Mason Loredo MD Active MYLANTA GAS RELIEF MAXIMUM STR 125 MG ORAL CAPS 30cc every 4 hours prn 12/01 SIMETHICONE 47884675488 Active Mason Loredo MD Active IMODIUM A-D 2 MG ORAL TABS 1 tab QID as needed LOPERAMIDE HCL 97072536087 Active Mason Loredo MD Active FLUVOXAMINE MALEATE 50 MG ORAL TABS 1 tab by mouth daily FLUVOXAMINE MALEATE 63134279107 Active Mason Loredo MD Active TRAVATAN Z 0.004 % SOLN 1 gtt each eye daily TRAVOPROST 54136677426 No Longer Active Mason Loredo MD Active LISINOPRIL 20 MG TABS 1 BID LISINOPRIL 39690775500 No Longer Active Mason Loredo MD Active LEVEMIR FLEXTOUCH 100 UNIT/ML SC SOPN 60 units SQ each evening, for diabetes INSULIN DETEMIR 99614776771 Active Desi Nicholson Active ZOLPIDEM TARTRATE 10 MG TABS take at bedtime ZOLPIDEM TARTRATE 20352011696 No Longer Active Mason Loredo MD Active HYDROCODONE-ACETAMINOPHEN 5-325 MG TABS 2 tabs by mouth three times daily for pain HYDROCODONE-ACETAMINOPHEN 53575620428 No Longer Active Mason Loredo MD Active ZOFRAN 4 MG TABS 1 po q4hr PRN Nausea ONDANSETRON HCL 11035095809 No Longer Active Mason Loredo MD Active LOMOTIL 2.5-0.025 MG ORAL TABS take 1-2 tabs PO after each stool, no more than 8 in 24 hours DIPHENOXYLATE-ATROPINE 20224090673 No Longer Active Mason Loredo MD Active COLACE 100 MG CAPS 1 pill by mouth twice daily, for constipation DOCUSATE SODIUM 96368760623 No Longer Active Mima Erazo APRN Active FLONASE ALLERGY RELIEF 50 MCG/ACT NASAL SUSP One spray each nostril BID x 1 week then daily FLUTICASONE PROPIONATE 71665811648 Active Mima Kacey PHOENIX Active BD PEN NEEDLE MINI U/F 31G X 5 MM MISC 4 a day INSULIN PEN NEEDLE 30082634015 Active Maljohn Ziglari FLAME CUTTER Active AMITIZA 24 MCG ORAL CAPS Take one capsule BID for constipation LUBIPROSTONE 91347378560 Active Mimacecily Erazo APRN Active TRUEPLUS LANCETS 30G MISC 3 a day LANCETS 93234777166 Active Maljohn Ziglari FLAME CUTTER Active TOLTERODINE TARTRATE 2 MG TABS 1 pill twice daily, for bladder TOLTERODINE TARTRATE 95306013170 No Longer Active Vansesa Hickey MD Active AMITIZA 24 MCG ORAL CAPS Take one capsule BID for constipation. LUBIPROSTONE 71697091894 No Longer Active Vanessa Hickey MD Active FLUVOXAMINE MALEATE 100 MG ORAL TABS take one tab every AM et HS, and take 1/ 2 tab at noon FLUVOXAMINE MALEATE 90420294652 Active Grace ROJAS Active METOPROLOL SUCCINATE 100 MG [id number] 1 by mouth daily for blood pressure METOPROLOL SUCCINATE 12488665706 No Longer Active Grace ROJAS Active METFORMIN HCL ER 500 MG TB36C-RVR Take three tablets by mouth everyday METFORMIN HCL 70132498935 No Longer Active Grace ROJAS Active LOVAZA 1 GM CAPS 4 daily (for triglycerides) OMEGA-3- ACID ETHYL ESTERS 27573999585 No Longer Active Grace ROJAS Active TRAZODONE HCL 100 MG ORAL TABS 1 tab by mouth for sleep TRAZODONE HCL 14058059954 No Longer Active Grace Azam RMA Active NOVOFINE 32G X 6 MM MISC use one four times per day INSULIN PEN NEEDLE 21777128151 No Longer Active Grace Azam RMA Active BACTROBAN 2 % CREAM Apply to affected area BID for up to 10 days MUPIROCIN CALCIUM 83674082594 No Longer Active Grace Azam RMA Active KEFLEX 500 MG CAP 1 po BID x 7 days CEPHALEXIN 51967760999 No Longer Active Cherelle Speaks NUMERICAL TOOL PROGRAMMER Active FLUVOXAMINE MALEATE 100 MG TABS Take one (1) tablet by mouth am, 1/2 at noon FLUVOXAMINE MALEATE 38635780173 No Longer Active Mima Aguilarliudmila NUMERICAL TOOL PROGRAMMER Active CORICIDIN HBP CONGESTION/COUGH 10-200 MG ORAL CAPS Take as directed on box as needed for cold/flu symptoms DEXTROMETHORPHAN-GUAIFENESIN 37706389633 Active Cherelle Speaks NUMERICAL TOOL PROGRAMMER Active OMEGA-3 300 MG ORAL CAPS 4 caps by mouth daily OMEGA-3 FATTY ACIDS 08910826373 Active Mima Yoeloinaum NUMERICAL TOOL PROGRAMMER Active FLUVOXAMINE MALEATE 100 MG ORAL TABS Take 1/2 tab at noon FLUVOXAMINE MALEATE 70550769993 No Longer Active Cherelle Speaks NUMERICAL TOOL PROGRAMMER Active [facility] LUBRICANT EYE DROPS 0.4-0.3 % OPHTH SOLN POLYETHYL GLYCOL-PROPYL GLYCOL 43698184527 Active Mima Yokum NUMERICAL TOOL PROGRAMMER Active MIRALAX POWD 17g by mouth daily, for constipation POLYETHYLENE GLYCOL 3350 96817411197 Active Alina Castaneda MD PhD Active TRUETEST TEST STRP check blood sugars 3x/day GLUCOSE BLOOD 78442834558 Active Marvel MENDOZAP Active ACCU-CHEK ROSA UZMA Use device to check blood sugars BLOOD GLUCOSE MONITORING SUPPL 64862568657 No Longer Active Maljohn Mackenzieglari FLAME CUTTER Active ACCU-CHEK ORSA INVITR STRP use strips with device to check blood sugars 3 times daily GLUCOSE BLOOD 68129956469 No Longer Active Marvel MARROQUIN Active VERAPAMIL HCL ER 180 MG ORAL CR-TABS 1 pill by mouth twice daily, for migraine prevention VERAPAMIL HCL 91725266928 Active Mima Erazo APRN Active CYCLOBENZAPRINE HCL 10 MG TABS 1 tablet by mouth three times daily, scheduled CYCLOBENZAPRINE HCL 60648001928 No Longer Active Alina Castaneda MD PhD Active HUMALOG 100 UNIT/ML SOLN Take 20 units with breakfast, 10u with lunch and suppetr. INSULIN LISPRO (HUMAN) 20987754116 No Longer Active Alina Castaneda MD PhD Active TRUETEST TEST STRP check sugars 4x/day GLUCOSE BLOOD 91175522374 No Longer Active Alina Castaneda MD PhD Active MORPHINE SULFATE 30 MG TABS 1 pill by mouth twice daily, for pain MORPHINE SULFATE 38376998882 No Longer Active Mason Loredo MD Active ACYCLOVIR 400 MG ORAL TABS 1 pill three times daily x 5 days, for cold sore outbreak ACYCLOVIR 05289950614 No Longer Active Alina Castaneda MD PhD Active PENICILLIN V POTASSIUM 500 MG TABS 1 pill by mouth three times daily PENICILLIN V POTASSIUM 80622697168 No Longer Active Alina Castaneda MD PhD Active UROXATRAL 10 MG [id number] Take 1 tablet by mouth daily ALFUZOSIN HCL 49702378689 No Longer Active Alina Castaneda MD PhD Active THIOTHIXENE 5 MG CAPS by mouth twice a day THIOTHIXENE 23571464369 No Longer Active Alina Castaneda MD PhD Active ZYPREXA 7.5 MG TABS 1 at HS OLANZAPINE 59661160299 No Longer Active Alina Castaneda MD PhD Active BD INSULIN SYRINGE 28G X 1/2" 1 ML MISC 1 four times per day INSULIN SYRINGE-NEEDLE U-100 94118709028 Active Maliheh Ziglari FLAME CUTTER Active DETROL LA 4 MG MV87P-YMI Take 1 tablet by mouth daily TOLTERODINE TARTRATE 24891442477 No Longer Active Alina Castaneda MD PhD Active TERESE CONTOUR TEST STRP monitor blood sugars 3x/day GLUCOSE BLOOD 27979113752 No Longer Active Alina Castaneda MD PhD Active EQL TRUETEST TEST STRP Test blood sugar TID GLUCOSE BLOOD 33096907488 No Longer Active Alina Castaneda MD PhD Active FLUTICASONE PROPIONATE 50 MCG/ACT SUSP 2 sprays each nostril qDay x 30 days FLUTICASONE PROPIONATE 54442674551 No Longer Active Alina Castaneda MD PhD Active IBUPROFEN 200 MG TABS 1 Q 6 hr. PRN IBUPROFEN 68692970052 No Longer Active Alina Castaneda MD PhD Active NIACIN ER 500 MG CR-TABS 4 qHS (for triglycerides) NIACIN 17732280001 No Longer Active Alina Castaneda MD PhD Active ALFUZOSIN HCL ER 10 MG [id number] 1 tablet daily ALFUZOSIN HCL 43994344606 Active Mima Yoeloinaum NUMERICAL TOOL PROGRAMMER Active SAPHRIS 5 MG SUBL by mouth twice a day ASENAPINE MALEATE 48274249614 No Longer Active Marvel MARROQUIN Active ACETAMINOPHEN 500 MG TABS 2 Q 6 hr. PRN ACETAMINOPHEN 06911177196 No Longer Active Marvel MARROQUIN Active ORPHENADRINE CITRATE ER 100 MG AN18N-FDH 1 every 12 hr. as needed ORPHENADRINE CITRATE 96634990094 No Longer Active Alina Castaneda MD PhD Active NIACIN CR 500 MG CR-TABS 2 qHS NIACIN 81152119659 No Longer Active Alina Castaneda MD PhD Active AMOXICILLIN 500 MG CAPS 2 po BID x 10 days AMOXICILLIN 09885840365 No Longer Active Alina Castaneda MD PhD Active HYDROCODONE-ACETAMINOPHEN 7.5-325 MG TABS 1 four times a day as needed for pain HYDROCODONE-ACETAMINOPHEN 28909174649 No Longer Active Alina Castaneda MD PhD Active DOXEPIN HCL 10 MG CAPS Take 1 tablet by mouth daily DOXEPIN HCL 99998087917 No Longer Active Salina Han A Active NAVANE 10 MG CAPS 1/2 tablet twice a day THIOTHIXENE No Longer Active Salina Han A Active CYCLOBENZAPRINE HCL 10 MG TABS 1/2 tablet by mouth every 8 hours as needed for muscle spasms CYCLOBENZAPRINE HCL 56759135621 No Longer Active Alina Castaneda MD PhD Active BACTROBAN 2 % CREAM apply to ear and nose twice daily MUPIROCIN CALCIUM 50210414396 No Longer Active Alina Castaneda MD PhD Active HYDROCODONE-ACETAMINOPHEN 5-325 MG TABS take one tablet by mouth every four hours as needed for pain HYDROCODONE-ACETAMINOPHEN 27738713631 No Longer Active Alina Castaneda MD PhD Active ZYPREXA 5 MG TABS take one tablet by mouth every evening OLANZAPINE 90997932561 No Longer Active Alina Castaneda MD PhD Active ALBUTEROL SULFATE 0.083 % NEBU SOLN one vial per nebulizer TID and PRN cough/ soa ALBUTEROL SULFATE 38418865448 No Longer Active Alina Castaneda MD PhD Active GUAIFENESIN 600 MG HB75E-QAS 1 tablet by mouth twice daily if needed for cough GUAIFENESIN 27738930986 No Longer Active Marvel Charles FLAME CUTTER Active AZITHROMYCIN 500 MG SOLR 1 po q day AZITHROMYCIN 28836292192 No Longer Active Alina Castaneda MD PhD Active PROMETHAZINE-CODEINE 6.25-10 MG/5ML SYRP 1 tsp po q 6 hours prn cough PROMETHAZINE-CODEINE 04435779217 No Longer Active Alina Castaneda MD PhD Active CEFDINIR 300 MG CAPS by mouth twice a day CEFDINIR 88853691743 No Longer Active Alina Castaneda MD PhD Active METFORMIN HCL 500 MG IL18N-XDN Take 3 tablets by mouth everyday METFORMIN HCL 19163786929 No Longer Active Alina Castaneda MD PhD Active LEVEMIR 100 UNIT/ML SOLN 90 units SQ qHS INSULIN DETEMIR 30313512592 No Longer Active Marvel MARROQUIN Active TOPROL XL 100 MG [id number] 1 @ HS METOPROLOL SUCCINATE 62983880728 No Longer Active Marvel MARROQUIN Active ALLOPURINOL 300 MG TABS Take one by mouth daily ALLOPURINOL 34566069160 Active Mima Yoliudmila NUMERICAL TOOL PROGRAMMER Active ZYPREXA 10 MG TABS Take one by mouth daily OLANZAPINE 71721217889 No Longer Active Alina Castaneda MD PhD Active NOVOLOG 100 UNIT/ML SOLN 40 units with every meal INSULIN ASPART 29474577334 No Longer Active Alina Castaneda MD PhD Active VERAPAMIL HCL CR 120 MG TAB CR 1 qPM VERAPAMIL HCL 59903673671 No Longer Active Salina ROJAS Active ZYPREXA 15 MG TABS Take 1 tablet by mouth daily OLANZAPINE 33832217420 No Longer Active Marvel MARROQUIN Active ALBUTEROL SULFATE (2.5 MG/3ML) 0.083% NEBU 1 neb tid and prn cough ALBUTEROL SULFATE 01252446291 No Longer Active Alina Castaneda MD PhD Active LANTUS 100 UNIT/ML SOLN 60 units sq q hs INSULIN GLARGINE 17242615089 No Longer Active CRYSTAL Suarez Active ALBUTEROL SULFATE (2.5 MG/3ML) 0.083% NEBU 1 neb tid and prn cough ALBUTEROL SULFATE (2.5 MG/3ML) 0.083% NEBU 234649 ALBUTEROL SULFATE Inactive ZYPREXA 15 MG TABS Take 1 tablet by mouth daily ZYPREXA 15 MG TABS 077366 OLANZAPINE Inactive VERAPAMIL HCL CR 120 MG TAB CR 1 qPM VERAPAMIL HCL CR 120 MG TAB CR VERAPAMIL HCL Inactive ZYPREXA 10 MG TABS Take one by mouth daily ZYPREXA 10 MG TABS 935692 OLANZAPINE Inactive TOPROL XL 100 MG [id number]-CKP 1 @ HS TOPROL XL 100 MG [id number]-IYI METOPROLOL SUCCINATE Inactive LEVEMIR 100 UNIT/ML SOLN 90 units SQ qHS LEVEMIR 100 UNIT/ML SOLN INSULIN DETEMIR Inactive PROMETHAZINE-CODEINE 6.25-10 MG/5ML SYRP 1 tsp po q 6 hours prn cough PROMETHAZINE-CODEINE 6.25-10 MG/5ML SYRP 717438 PROMETHAZINE- CODEINE Inactive GUAIFENESIN 600 MG SL08Z-ZNC 1 tablet by mouth twice daily if needed for cough GUAIFENESIN 600 MG ZL43U-JBQ GUAIFENESIN Inactive ALBUTEROL SULFATE 0.083 % NEBU SOLN one vial per nebulizer TID and PRN cough/ soa ALBUTEROL SULFATE 0.083 % NEBU SOLN 357743 ALBUTEROL SULFATE Inactive ZYPREXA 5 MG TABS take one tablet by mouth every evening ZYPREXA 5 MG TABS 436313 OLANZAPINE Inactive HYDROCODONE-ACETAMINOPHEN 5-325 MG TABS take one tablet by mouth every four hours as needed for pain HYDROCODONE-ACETAMINOPHEN 5-325 MG TABS 533124 HYDROCODONE-ACETAMINOPHEN Inactive BACTROBAN 2 % CREAM apply to ear and nose twice daily BACTROBAN 2 % CREAM 342987 MUPIROCIN CALCIUM Inactive CYCLOBENZAPRINE HCL 10 MG TABS 1/2 tablet by mouth every 8 hours as needed for muscle spasms CYCLOBENZAPRINE HCL 10 MG TABS 998266 CYCLOBENZAPRINE HCL Inactive NAVANE 10 MG CAPS 1/2 tablet twice a day NAVANE 10 MG CAPS THIOTHIXENE Inactive DOXEPIN HCL 10 MG CAPS Take 1 tablet by mouth daily DOXEPIN HCL 10 MG CAPS 1931415 DOXEPIN HCL Inactive HYDROCODONE-ACETAMINOPHEN 7.5-325 MG TABS 1 four times a day as needed for pain HYDROCODONE-ACETAMINOPHEN 7.5-325 MG TABS 706407 HYDROCODONE-ACETAMINOPHEN Inactive NIACIN CR 500 MG CR-TABS 2 qHS NIACIN CR 500 MG CR- TABS NIACIN Inactive ORPHENADRINE CITRATE ER 100 MG EF54D-LOD 1 every 12 hr. as needed ORPHENADRINE CITRATE ER 100 MG FM93M-UBJ ORPHENADRINE CITRATE Inactive ACETAMINOPHEN 500 MG TABS 2 Q 6 hr. PRN ACETAMINOPHEN 500 MG TABS 778515 ACETAMINOPHEN Inactive SAPHRIS 5 MG SUBL by mouth twice a day SAPHRIS 5 MG SUBL ASENAPINE MALEATE Inactive NIACIN ER 500 MG CR-TABS 4 qHS (for triglycerides) NIACIN ER 500 MG CR-TABS NIACIN Inactive IBUPROFEN 200 MG TABS 1 Q 6 hr. PRN IBUPROFEN 200 MG TABS 951381 IBUPROFEN Inactive FLUTICASONE PROPIONATE 50 MCG/ACT SUSP 2 sprays each nostril qDay x 30 days FLUTICASONE PROPIONATE 50 MCG/ACT SUSP 1383853 FLUTICASONE PROPIONATE Inactive EQL TRUETEST TEST STRP Test blood sugar TID EQL TRUETEST TEST STRP GLUCOSE BLOOD Inactive TERESE CONTOUR TEST STRP monitor blood sugars 3x/day TERESE CONTOUR TEST STRP GLUCOSE BLOOD Inactive DETROL LA 4 MG CY69D-WOV Take 1 tablet by mouth daily DETROL LA 4 MG KS25X-NRC TOLTERODINE TARTRATE Inactive ZYPREXA 7.5 MG TABS 1 at HS ZYPREXA 7.5 MG TABS 533615 OLANZAPINE Inactive THIOTHIXENE 5 MG CAPS by mouth twice a day THIOTHIXENE 5 MG CAPS 825434 THIOTHIXENE Inactive UROXATRAL 10 MG NY51T-BBM Take 1 tablet by mouth daily UROXATRAL 10 MG CT15C-PLN ALFUZOSIN HCL Inactive ACYCLOVIR 400 MG ORAL TABS 1 pill three times daily x 5 days, for cold sore outbreak ACYCLOVIR 400 MG ORAL TABS 207292 ACYCLOVIR Inactive TRUETEST TEST STRP check sugars 4x/day TRUETEST TEST STRP GLUCOSE BLOOD Inactive HUMALOG 100 UNIT/ML SOLN Take 20 units with breakfast, 10u with lunch and suppetr. HUMALOG 100 UNIT/ML SOLN INSULIN LISPRO ( HUMAN) Inactive CYCLOBENZAPRINE HCL 10 MG TABS 1 tablet by mouth three times daily, scheduled CYCLOBENZAPRINE HCL 10 MG TABS 407621 CYCLOBENZAPRINE HCL Inactive ACCU-CHEK ROSA INVITR STRP use strips with device to check blood sugars 3 times daily ACCU-CHEK ROSA INVITR STRP GLUCOSE BLOOD Inactive ACCU-CHEK ROSA UZMA Use device to check blood sugars ACCU-CHEK ROSA UZMA BLOOD GLUCOSE MONITORING SUPPL Inactive FLUVOXAMINE MALEATE 100 MG ORAL TABS Take 1/2 tab at noon FLUVOXAMINE MALEATE 100 MG ORAL TABS 292860 FLUVOXAMINE MALEATE Inactive FLUVOXAMINE MALEATE 100 MG TABS Take one (1) tablet by mouth am, 1/2 at noon FLUVOXAMINE MALEATE 100 MG TABS 565648 FLUVOXAMINE MALEATE Inactive BACTROBAN 2 % CREAM Apply to affected area BID for up to 10 days BACTROBAN 2 % CREAM 233266 MUPIROCIN CALCIUM Inactive NOVOFINE 32G X 6 MM MISC use one four times per day NOVOFINE 32G X 6 MM MISC INSULIN PEN NEEDLE Inactive TRAZODONE HCL 100 MG ORAL TABS 1 tab by mouth for sleep TRAZODONE HCL 100 MG ORAL TABS 612138 TRAZODONE HCL Inactive LOVAZA 1 GM CAPS 4 daily (for triglycerides) LOVAZA 1 GM CAPS 350658 QEFPX-7-DEGL ETHYL ESTERS Inactive METFORMIN HCL ER 500 MG MN63B-MSQ Take three tablets by mouth everyday METFORMIN HCL ER 500 MG [id number]-AZK METFORMIN HCL Inactive METOPROLOL SUCCINATE 100 MG FF82O-RQG 1 by mouth daily for blood pressure METOPROLOL SUCCINATE 100 MG JF83D-PLT METOPROLOL SUCCINATE Inactive AMITIZA 24 MCG ORAL CAPS Take one capsule BID for constipation. AMITIZA 24 MCG ORAL CAPS LUBIPROSTONE Inactive TOLTERODINE TARTRATE 2 MG TABS 1 pill twice daily, for bladder TOLTERODINE TARTRATE 2 MG TABS 318923 TOLTERODINE TARTRATE Inactive COLACE 100 MG CAPS 1 pill by mouth twice daily, for constipation COLACE 100 MG CAPS 4388860 DOCUSATE SODIUM Inactive LOMOTIL 2.5-0.025 MG ORAL TABS take 1-2 tabs PO after each stool, no more than 8 in 24 hours LOMOTIL 2.5-0.025 MG ORAL TABS 8497920 DIPHENOXYLATE-ATROPINE Inactive ZOFRAN 4 MG TABS 1 po q4hr PRN Nausea ZOFRAN 4 MG TABS 227314 ONDANSETRON HCL Inactive HYDROCODONE-ACETAMINOPHEN 5-325 MG TABS 2 tabs by mouth three times daily for pain HYDROCODONE-ACETAMINOPHEN 5-325 MG TABS 732375 HYDROCODONE-ACETAMINOPHEN Inactive ZOLPIDEM TARTRATE 10 MG TABS take at bedtime ZOLPIDEM TARTRATE 10 MG TABS 832153 ZOLPIDEM TARTRATE Inactive LISINOPRIL 20 MG TABS 1 BID LISINOPRIL 20 MG TABS 698947 LISINOPRIL Inactive TRAVATAN Z 0.004 % SOLN 1 gtt each eye daily TRAVATAN Z 0.004 % SOLN TRAVOPROST Inactive LATUDA 60 MG ORAL TABS Take one by mouth daily LATUDA 60 MG ORAL TABS LURASIDONE HCL Inactive CEFDINIR 300 MG CAPS by mouth twice a day CEFDINIR 300 MG CAPS 841268 CEFDINIR Inactive AZITHROMYCIN 500 MG SOLR 1 po q day AZITHROMYCIN 500 MG SOLR 58198483740 AZITHROMYCIN Inactive AMOXICILLIN 500 MG CAPS 2 po BID x 10 days AMOXICILLIN 500 MG CAPS 994096 AMOXICILLIN Inactive PENICILLIN V POTASSIUM 500 MG TABS 1 pill by mouth three times daily PENICILLIN V POTASSIUM 500 MG TABS 278282 PENICILLIN V POTASSIUM Inactive KEFLEX 500 MG CAP 1 po BID x 7 days KEFLEX 500 MG CAP 264807 CEPHALEXIN Inactive Immunizations Vaccine Administration Date Value [...] Fluvirin, Fluarix, Agriflu(>=18 yo)) Fluzone (>3 yrs.) [[id number]] Influenza, seasonal, injectable pneumococcal immunization administered Pneumovax [...] Panel - Chemistry sodium, serum 137 mmol/L 613-397 0002/10/12 potassium, serum 4.8 mmol/L 3.5-5.2 chloride, serum 102 mmol/L 98-107 carbon dioxide, venous blood 27.6 mmol/L 21.0-32.0 blood glucose 168 mg/dL 65-110 calcium, serum 9.0 mg/dL 8.5-10.1 urea nitrogen, blood 15 mg/dL 7-18 creatinine, serum 1.04 mg/dL 0.55-1.30 sodium, serum 138 mmol/L 860-027 2959/11/11 potassium, serum 4.7 mmol/L 3.5-5.2 chloride, serum [...] % 11.6-14.8 platelet count 240 10^3/MM^3 10*3/mm3 047-048 1702/11/11 leukocyte count, blood 9.6 10^3/MM^3 10*3/mm3 4.6-10.2 [...] Acid - Chemistry cholesterol, serum 187 mg/dL 586-868 7660/06/14 triglyceride, serum, fasting 246 mg/dL 30-200 HDL [...] negative Encounters Code Encounter Date Provider Facility CPT-47544 Level 3 Est. Patient 17:40:16 CDT Mima Erazo [facility] CPT-76541 Level 3 Est. Patient 14:34:52 CDT Vanessa Hickey MD [facility] CPT-53489 Level 3 Est. Patient 16:27:51 CDT Mima Erazo [facility] CPT-84984 Level 3 Est. Patient 14:39:00 LINUX KERNEL DEVELOPER Vanessa Hickey MD [facility] CPT-75128 Level 2 Est. Patient 18:43:34 CDT Mima Erazo [facility] CPT-26519 Level 3 Est. Patient 16:22:09 CDT Cherelleetta Avila [facility] CPT-47383 Level 4 Est. Patient 17:55:14 CDT Mima Erazo [facility]-91983 Level 2 Est. Patient 17:13:21 CDT Alina Castaneda MD [facility]-22051 Level 3 Est. Patient 14:46:15 CDT Vanessa Hickey MD [facility]-20611 Level 3 Est. Patient 09:34:56 CDT Alina Castaneda MD [facility]03111 Level 3 Est. Patient 21:40:19 CDT Mima Erazo [facility]-44100 Level 3 Est. Patient 09:26:[facility]14906 Level 3 Est. Patient 12:36:43 CDT Vanessa Hickey MD [facility]-57876 Level 3 Est. Patient 12:57:49 CDT Vanessa Hickey MD [facility]-15709 Level 3 Est. Patient 00:28:25 CDT Alina Castaneda MD [facility]90003 Level 2 Est. Patient 12:52:14 CDT Alina Castaneda MD [facility]03191 Level 3 Est. Patient 11:51:18 LINUX KERNEL DEVELOPER Alina Castaneda MD [facility]-47540 Level 3 Est. Patient 10:09:22 LINUX KERNEL DEVELOPER Alina Castaneda MD [facility]51423 Level 3 Est. Patient 14:36:26 LINUX KERNEL DEVELOPER Marvel Charles [facility]-89342 Level 3 Est. Patient 13:34:47 LINUX KERNEL DEVELOPER Alina Castaneda MD [facility]53594 Level 3 Est. Patient 19:52:08 LINUX KERNEL DEVELOPER Alina Castaneda MD [facility]02977 Level 3 Est. Patient 10:01:51 LINUX KERNEL DEVELOPER Marvel Charles [facility]-60141 Level 3 Est. Patient 21:54:06 CDT Vanessa Hickey MD [facility]-35574 Level 3 Est. Patient 08:54:46 CDT Alina Castaneda MD [facility]-58913 Level 3 Est. Patient 09:32:11 CDT Marvel Charles [facility]-15167 Level 3 Est. Patient 12:02:49 CDT Alina Castaneda MD [facility]-57293 Level 3 Est. Patient 19:17:33 CDT Alina Castaneda MD [facility]-75964 Level 3 Est. Patient 13:19:10 CD[facility] Gurdeep[facility]-26061 Level 3 Est. Patient 08:20:05 CDT Ailna Castaneda MD [facility]-65118 Level 3 Est. Patient 15:17:18 CDT Alina Castaneda MD [facility]98981 Level 3 Est. Patient 14:25:36 LINUX KERNEL DEVELOPER Marvel Thurstonestela [facility]-83698 Level 3 Est. Patient 10:09:15 LINUX KERNEL DEVELOPER Marvel Charles [facility]-47281 Level 3 Est. Patient 21:28:43 CDT Alina Castaneda MD [facility]-68568 Level 3 Est. Patient 15:20:11 CDT [facility] [facility] Arac[facility]-70585 Level 4 Est. Patient 19:08:12 CDT Alina Castaneda MD [facility]80228 Level 3 Est. Patient 15:06:39 CDT Marvel Charles [facility]-52422 Level 4 Est. Patient 17:48:15 CDT Alina Castaneda MD [facility]-88165 Level 3 Est. Patient 14:53:49 CDT Alina Castaneda MD [facility]14676 Level 3 Est. Patient 09:35:16 CDT Alina Castaneda MD [facility]-36601 Level 3 Est. Patient 12:23:22 CDT Alina Castaneda MD [facility]-70479 Level 3 Est. Patient 16:19:15 CDT Alina Castaneda MD [facility]-96579 Level 3 Est. Patient 21:39:56 [employer] DEVELOPER Alina Castaneda MD [facility]-24066 Level 4 Est. Patient 14:12:56 [employer] K[employer]EL DEVELOPER Alina Castaneda MD [facility]-49738 Level 2 Est. Patient 15:34:57 [employer] DEVELOPER Alina Castaneda MD [facility]-40640 Level 3 Est. Patient 12:17:04 LIN[employer] K[employer]EL DEVELOPER Alina Castaneda MD [facility]-44935 Level 3 Est. Patient 09:18:18 LIN[employer] K[employer]EL DEVELOPER Marvel Charles [facility]-50998 Level 2 Est. Patient 21:50:24 CDT Alina Castaneda MD [facility]-12947 Level 3 Est. Patient 09:17:28 CDT Marvel Charles [facility]-59569 Level 4 Est. Patient 18:54:02 CDT Alina Castaneda MD [facility]85881 Level 3 Est. Patient 10:47:10 CDT Alina Castaneda MD [facility] CPT-10011 Level 3 Est. Patient 09:22:20 CDT Marvel Charles [facility] CPT-72972 Level 3 Est. Patient 16:39:43 CDT [place] Charles [facility] CPT-43195 Level 3 Est. Patient 16:05:16 CDT Alina Castaneda MD [facility] CPT-22220 Level 3 Est. Patient 00:29:15 CDT Alina Castaneda MD [facility] CPT-50562 Level 3 Est. Patient 10:49:22 LIN[employer] KERNEL DEVELOPER Marvel Thurstonestela [facility] CPT-44303 Level 3 Est. Patient 21:30:19 [employer] DEVELOPER Alina Castaneda MD [facility] CPT-44053 Level 4 Est. Patient 17:04:11 LIN[employer] K[employer]EL DEVELOPER [facility] Level 3 Est. Patient 15:34:[address] [facility]-27143 Level 2 Est. Patient 12:51:58 LIN[employer] K[employer] DEVELOPER Alina Castaneda MD PhD [facility] CPT-90672 Level 3 Est. Patient 13:20:01 [employer] DEVELOPER Alina Castaneda MD [facility] CPT-28421 Level 3 Est. Patient 09:23:35 CDT Alina aCstaneda MD PhD [facility] Procedures Code Procedure Name Date Entry Date Standard Description CPT-TCMM Transitional Care Mgmt-Moderate 10:25:31 CDT CPT-14979 Bladder Scan 14:34:53 CDT CPT-80746 Bladder Scan 14:39:01 [employer] DEVELOPER CPT-TCMM Transitional Care Mgmt-Moderate 10:30:19 [employer] DEVELOPER CPT-12294 Bladder Scan 12:36:44 CDT CPT-44064 Bladder Scan 21:54:06 CDT CPT-G0008 Administration of Influenza Virus Vaccine 13:05:26 CDT CPT-44882 Fluzone Quadrivalent Intramuscular Suspension 0.5 ML 13: 05:26 CDT CPT-16227 Administration single or combination vaccine inc oral 11 :49:51 CDT CPT-81492 Pneumovax 11:49:51 CDT CPT-96060 Ribs unilateral 2V 12:37:22 [employer]ELOPER CPT-58558 Chest 2V Frontal and Lat 17:15:26 CDT CPT-50014 Abx/Therapy Injection 18:54:02 CDT CPT-J0696 Rocephin 1000 mg (Ceftriaxone) 16:00:32 CDT CPT-38306 Chest 2V Frontal and Lat 15:26:45 CDT CPT-81629 Chest 2V Frontal and Lat 10:23:27 CDT CPT-49723 Venipuncture Draw Fee 10:11:00 CDT CPT-66785 Administration single or combination vaccine inc oral 11 :56:38 CDT CPT-04567 Influenza split virus > age 3 11:56:38 CDT CPT-45961 Venipuncture Draw Fee 08:49:54 [employer] DEVELOPER CPT-80628 EKG Trac and Interp 17:54:19 LINUX K[employer]EL DEVELOPER
--- OUTSIDE RECORDS SUMMARY | 2018-07-02 17:33 | XMS REPORT | Clinical Summary ---
Author Author Admin, TERELL Organization [facility] [employer] Address Unknown Phone Unavailable Allergies, Adverse Reactions, 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 Erazo OFFSET LITHOGRAPHIC PRESS OPERATOR Benign paroxysmal positional vertigo Vertigo, benign paroxysmal position 386.11 Inactive Mima Erazo OFFSET LITHOGRAPHIC PRESS OPERATOR Benign paroxysmal positional vertigo High-risk sexual behavior V69.2 Active Alina Castaneda MD PhD High-risk sexual behavior Erectile dysfunction 302.72 Active Alina Castaneda MD PhD Psychosexual dysfunction with inhibited sexual excitement Constipation 564.00 Active Alina Castaneda MD PhD Constipation, unspecified Skin lesion 709.9 Active Alina Castaneda MD PhD Unspecified disorder of skin and subcutaneous tissue Malaise and fatigue 780.79 Active Cherelle Speaks OFFSET LITHOGRAPHIC PRESS OPERATOR Other malaise and fatigue Diarrhea 787.91 Active Cherelle Speaks OFFSET LITHOGRAPHIC PRESS OPERATOR Diarrhea PHARYNGITIS 462 Active Cherelle Speaks OFFSET LITHOGRAPHIC PRESS OPERATOR Acute pharyngitis Colitis 558.9 Active Mima Erazo OFFSET LITHOGRAPHIC PRESS OPERATOR Other and unspecified noninfectious gastroenteritis and [...] Patient Instruction EFFEXOR XR 37.5 MG ORAL [id number] Take one by mouth daily VENLAFAXINE HCL 95719162933 Active Mima Vadimum ALBAN Active TRAVATAN Z 0.004 % OPHTH SOLN 1 drop each eye daily TRAVOPROST 69131462797 Active Mima Yokum OFFSET LITHOGRAPHIC PRESS OPERATOR Active FLUVOXAMINE MALEATE 50 MG ORAL TABS 1 tab by mouth daily FLUVOXAMINE MALEATE 36580532811 No Longer Active Mima Vadimum ALBAN Active MORPHINE SULFATE ER 30 MG ORAL CR-TABS Take one capsule BID MORPHINE SULFATE 47455618035 Active Mima Yokum OFFSET LITHOGRAPHIC PRESS OPERATOR Active TRUEPLUS LANCETS 30G MISC 3x a day LANCETS 08075047282 Active Marvel Charles LEGAL DIRECTOR Active TRUE METRIX METER W/DEVICE KIT Check blood sugars 3x/day BLOOD GLUCOSE MONITORING SUPPL 53639436765 Active Marvel Mackenzieglari LEGAL DIRECTOR Active TRUE METRIX BLOOD GLUCOSE TEST INVITR STRP Check blood sugars 3x/day. GLUCOSE BLOOD 10652829951 Active Marvel Mackenzieglari LEGAL DIRECTOR Active VITAMIN D 2000 UNIT ORAL CAPS Take one by mouth daily CHOLECALCIFEROL 80967756643 Active Mima Yokum OFFSET LITHOGRAPHIC PRESS OPERATOR Active LATUDA 60 MG ORAL TABS Take one by mouth daily LURASIDONE HCL 49136590509 No Longer Active Mima Yokum OFFSET LITHOGRAPHIC PRESS OPERATOR Active HUMALOG KWIKPEN 100 UNIT/ML SC SOPN sliding scale if needed INSULIN LISPRO (HUMAN) 07592197194 Active Mima Yokum OFFSET LITHOGRAPHIC PRESS OPERATOR Active TRAZODONE HCL 100 MG TABS 1 every night to prevent headaches TRAZODONE HCL 42399094896 Active Gabrielle Madl EDGE GRINDER Active LATUDA 60 MG ORAL TABS 1 tab daily LURASIDONE HCL 25538166981 Active Gabrielle Madl EDGE GRINDER Active CLONAZEPAM 1 MG TABS 1 pill by mouth three times daily CLONAZEPAM 84532198899 Active Gabrielle Madl EDGE GRINDER Active [facility] MILK OF MAGNESIA 400 MG/5ML ORAL SUSP 30ml by mouth bid prn MAGNESIUM HYDROXIDE 07295767428 Active Mason Loredo MD Active TYLENOL 8 HOUR 650 MG ORAL CR-TABS 1 tab QID prn ACETAMINOPHEN 06884530983 Active Mason Loredo MD Active MYLANTA GAS RELIEF MAXIMUM STR 125 MG ORAL CAPS 30cc every 4 hours prn 12/01 SIMETHICONE 94236539964 Active Mason Loredo MD Active IMODIUM A-D 2 MG ORAL TABS 1 tab QID as needed LOPERAMIDE HCL 34718037030 Active Mason Loredo MD Active TRAVATAN Z 0.004 % SOLN 1 gtt each eye daily TRAVOPROST 39454563355 No Longer Active Mason Loredo MD Active LISINOPRIL 20 MG TABS 1 BID LISINOPRIL 29249143037 No Longer Active Mason Loredo MD Active LEVEMIR FLEXTOUCH 100 UNIT/ML SC SOPN 60 units SQ each evening, for diabetes INSULIN DETEMIR 85971488729 Active Mima Erazo APRN Active ZOLPIDEM TARTRATE 10 MG TABS take at bedtime ZOLPIDEM TARTRATE 51553159747 No Longer Active Mason Loredo MD Active HYDROCODONE-ACETAMINOPHEN 5-325 MG TABS 2 tabs by mouth three times daily for pain HYDROCODONE-ACETAMINOPHEN 83656372058 No Longer Active Mason Loredo MD Active ZOFRAN 4 MG TABS 1 po q4hr PRN Nausea ONDANSETRON HCL 27794649792 No Longer Active Mason Loredo MD Active LOMOTIL 2.5-0.025 MG ORAL TABS take 1-2 tabs PO after each stool, no more than 8 in 24 hours DIPHENOXYLATE-ATROPINE 41046973468 No Longer Active Mason Loredo MD Active COLACE 100 MG CAPS 1 pill by mouth twice daily, for constipation DOCUSATE SODIUM 80330460252 No Longer Active Mima Erazo APRN Active FLONASE ALLERGY RELIEF 50 MCG/ACT NASAL SUSP One spray each nostril BID x 1 week then daily FLUTICASONE PROPIONATE 10450817465 Active Mima Erazo APRN Active BD PEN NEEDLE MINI U/F 31G X 5 MM MISC 4 a day INSULIN PEN NEEDLE 03601168644 Active Marvel MARROQUIN Active AMITIZA 24 MCG ORAL CAPS Take one capsule BID for constipation LUBIPROSTONE 02826160443 Active Mima Erazo APRN Active TRUEPLUS LANCETS 30G MISC 3 a day LANCETS 20032502362 Active Marvel MARROQUIN Active TOLTERODINE TARTRATE 2 MG TABS 1 pill twice daily, for bladder TOLTERODINE TARTRATE 55707900691 No Longer Active Vanessa Hickey MD Active AMITIZA 24 MCG ORAL CAPS Take one capsule BID for constipation. LUBIPROSTONE 48430740608 No Longer Active Vanessa Hickey MD Active FLUVOXAMINE MALEATE 100 MG ORAL TABS take one tab every AM et HS, and take 1/ 2 tab at noon FLUVOXAMINE MALEATE 50429369694 Active Grace Azam RMA Active METOPROLOL SUCCINATE 100 MG [id number]-MLZ 1 by mouth daily for blood pressure METOPROLOL SUCCINATE 53951484457 No Longer Active Grace Azam RMA Active METFORMIN HCL ER 500 MG [id number]-ZEW Take three tablets by mouth everyday METFORMIN HCL 83410511350 No Longer Active Grace Azam RMA Active LOVAZA 1 GM CAPS 4 daily (for triglycerides) OMEGA-3- ACID ETHYL ESTERS 92889437279 No Longer Active Grace Azam RMA Active TRAZODONE HCL 100 MG ORAL TABS 1 tab by mouth for sleep TRAZODONE HCL 64886639279 No Longer Active Grace Azam RMA Active NOVOFINE 32G X 6 MM MISC use one four times per day INSULIN PEN NEEDLE 59658219075 No Longer Active Grace Azam RMA Active BACTROBAN 2 % CREAM Apply to affected area BID for up to 10 days MUPIROCIN CALCIUM 95818996109 No Longer Active Grace Azam RMA Active KEFLEX 500 MG CAP 1 po BID x 7 days CEPHALEXIN 33008501276 No Longer Active Cherelle Avila APRN Active FLUVOXAMINE MALEATE 100 MG TABS Take one (1) tablet by mouth am, 1/2 at noon FLUVOXAMINE MALEATE 35287620887 No Longer Active Mimacecily Erazo OFFSET LITHOGRAPHIC PRESS OPERATOR Active CORICIDIN HBP CONGESTION/COUGH 10-200 MG ORAL CAPS Take as directed on box as needed for cold/flu symptoms DEXTROMETHORPHAN-GUAIFENESIN 11507152938 Active Cherelle Speaks OFFSET LITHOGRAPHIC PRESS OPERATOR Active OMEGA-3 300 MG ORAL CAPS 4 caps by mouth daily OMEGA-3 FATTY ACIDS 12469002249 Active Mima Yokum OFFSET LITHOGRAPHIC PRESS OPERATOR Active FLUVOXAMINE MALEATE 100 MG ORAL TABS Take 1/2 tab at noon FLUVOXAMINE MALEATE 64046625527 No Longer Active Cherelle Avila ALBAN Active [facility] LUBRICANT EYE DROPS 0.4-0.3 % OPHTH SOLN POLYETHYL GLYCOL-PROPYL GLYCOL 71147940966 Active Mima Erazo OFFSET LITHOGRAPHIC PRESS OPERATOR Active MIRALAX POWD 17g by mouth daily, for constipation POLYETHYLENE GLYCOL 3350 55111012371 Active Alina Castaneda MD PhD Active TRUETEST TEST STRP check blood sugars 3x/day GLUCOSE BLOOD 82416012870 Active Maliheh Ziglari LEGAL DIRECTOR Active ACCU-CHEK ROSA UZMA Use device to check blood sugars BLOOD GLUCOSE MONITORING SUPPL 65465481775 No Longer Active Maliheh Ziglari LEGAL DIRECTOR Active ACCU-CHEK ROSA INVITR STRP use strips with device to check blood sugars 3 times daily GLUCOSE BLOOD 85522537477 No Longer Active MalNovoEDeh Ziglari LEGAL DIRECTOR Active VERAPAMIL HCL ER 180 MG ORAL CR-TABS 1 pill by mouth twice daily, for migraine prevention VERAPAMIL HCL 60947053576 Active Mima Erazo APRN Active CYCLOBENZAPRINE HCL 10 MG TABS 1 tablet by mouth three times daily, scheduled CYCLOBENZAPRINE HCL 69784805866 No Longer Active Alina Castaneda MD PhD Active HUMALOG 100 UNIT/ML SOLN Take 20 units with breakfast, 10u with lunch and suppetr. INSULIN LISPRO (HUMAN) 61754608304 No Longer Active Alina Castaneda MD PhD Active TRUETEST TEST STRP check sugars 4x/day GLUCOSE BLOOD 79997323237 No Longer Active Alina Castaneda MD PhD Active MORPHINE SULFATE 30 MG TABS 1 pill by mouth twice daily, for pain MORPHINE SULFATE 49896041679 No Longer Active Mason Loredo MD Active ACYCLOVIR 400 MG ORAL TABS 1 pill three times daily x 5 days, for cold sore outbreak ACYCLOVIR 36744602944 No Longer Active Alina Castaneda MD PhD Active PENICILLIN V POTASSIUM 500 MG TABS 1 pill by mouth three times daily PENICILLIN V POTASSIUM 33279293497 No Longer Active Alina Castaneda MD PhD Active UROXATRAL 10 MG [id number] Take 1 tablet by mouth daily ALFUZOSIN HCL 93880972276 No Longer Active Alina Castaneda MD PhD Active THIOTHIXENE 5 MG CAPS by mouth twice a day THIOTHIXENE 05759480507 No Longer Active Alina Castaneda MD PhD Active ZYPREXA 7.5 MG TABS 1 at HS OLANZAPINE 23097015340 No Longer Active Alina Castaneda MD PhD Active BD INSULIN SYRINGE 28G X 1/2" 1 ML MISC 1 four times per day INSULIN SYRINGE-NEEDLE U-100 07278862238 Active Marvel Charles LEGAL DIRECTOR Active DETROL LA 4 MG [id number]-VQG Take 1 tablet by mouth daily TOLTERODINE TARTRATE 41112281745 No Longer Active Alina Castaneda MD PhD Active TERESE CONTOUR TEST STRP monitor blood sugars 3x/day GLUCOSE BLOOD 79030119697 No Longer Active Alina Castaneda MD PhD Active EQL TRUETEST TEST STRP Test blood sugar TID GLUCOSE BLOOD 71355275768 No Longer Active Alina Castaneda MD PhD Active FLUTICASONE PROPIONATE 50 MCG/ACT SUSP 2 sprays each nostril qDay x 30 days FLUTICASONE PROPIONATE 20955835543 No Longer Active Alina Castaneda MD PhD Active IBUPROFEN 200 MG TABS 1 Q 6 hr. PRN IBUPROFEN 61849205855 No Longer Active Alina Castaneda MD PhD Active NIACIN ER 500 MG CR-TABS 4 qHS (for triglycerides) NIACIN 44218686122 No Longer Active Alina aCstaneda MD PhD Active ALFUZOSIN HCL ER 10 MG QQ33M-BOI 1 tablet daily ALFUZOSIN HCL 88084502046 Active Mima Erazo OFFSET LITHOGRAPHIC PRESS OPERATOR Active SAPHRIS 5 MG SUBL by mouth twice a day ASENAPINE MALEATE 38789229564 No Longer Active Marvel Mackenzieglari LEGAL DIRECTOR Active ACETAMINOPHEN 500 MG TABS 2 Q 6 hr. PRN ACETAMINOPHEN 08540156611 No Longer Active Maliheh Ziglari LEGAL DIRECTOR Active ORPHENADRINE CITRATE ER 100 MG SW60Z-HBW 1 every 12 hr. as needed ORPHENADRINE CITRATE 13817677955 No Longer Active Alina Castaneda MD PhD Active NIACIN CR 500 MG CR-TABS 2 qHS NIACIN 20921782858 No Longer Active Alina Castaneda MD PhD Active AMOXICILLIN 500 MG CAPS 2 po BID x 10 days AMOXICILLIN 46537767651 No Longer Active Alina Castaneda MD PhD Active HYDROCODONE-ACETAMINOPHEN 7.5-325 MG TABS 1 four times a day as needed for pain HYDROCODONE-ACETAMINOPHEN 63468134997 No Longer Active Alina Castaneda MD PhD Active DOXEPIN HCL 10 MG CAPS Take 1 tablet by mouth daily DOXEPIN HCL 52021891036 No Longer Active Salina Han [facility] Active NAVANE 10 MG CAPS 1/2 tablet twice a day THIOTHIXENE No Longer Active Salina Han [facility] Active CYCLOBENZAPRINE HCL 10 MG TABS 1/2 tablet by mouth every 8 hours as needed for muscle spasms CYCLOBENZAPRINE HCL 75706831761 No Longer Active Alina Castaneda MD PhD Active BACTROBAN 2 % CREAM apply to ear and nose twice daily MUPIROCIN CALCIUM 13383488672 No Longer Active Alina Castaneda MD PhD Active HYDROCODONE-ACETAMINOPHEN 5-325 MG TABS take one tablet by mouth every four hours as needed for pain HYDROCODONE-ACETAMINOPHEN 45282570912 No Longer Active Alina Castaneda MD PhD Active ZYPREXA 5 MG TABS take one tablet by mouth every evening OLANZAPINE 60143854793 No Longer Active Alina Castaneda MD PhD Active ALBUTEROL SULFATE 0.083 % NEBU SOLN one vial per nebulizer TID and PRN cough/ soa ALBUTEROL SULFATE 64471152202 No Longer Active Alina Castaneda MD PhD Active GUAIFENESIN 600 MG QK30Y-KQI 1 tablet by mouth twice daily if needed for cough GUAIFENESIN 05546569614 No Longer Active Marvel MARROQUIN Active AZITHROMYCIN 500 MG SOLR 1 po q day AZITHROMYCIN 42296004254 No Longer Active Alina Castaneda MD PhD Active PROMETHAZINE-CODEINE 6.25-10 MG/5ML SYRP 1 tsp po q 6 hours prn cough PROMETHAZINE-CODEINE 39089979976 No Longer Active Alina Castaneda MD PhD Active CEFDINIR 300 MG CAPS by mouth twice a day CEFDINIR 30669389437 No Longer Active Alina Castaneda MD PhD Active METFORMIN HCL 500 MG VR90S-LWE Take 3 tablets by mouth everyday METFORMIN HCL 55185031432 No Longer Active Alina Castaneda MD PhD Active LEVEMIR 100 UNIT/ML SOLN 90 units SQ qHS INSULIN DETEMIR 08475478253 No Longer Active Marvel MARROQUIN Active TOPROL XL 100 MG [id number]-DOS 1 @ HS METOPROLOL SUCCINATE 83633955073 No Longer Active Marvel MARROQUIN Active ALLOPURINOL 300 MG TABS Take one by mouth daily ALLOPURINOL 72215646455 Active Mima Yoeloinaum OFFSET LITHOGRAPHIC PRESS OPERATOR Active ZYPREXA 10 MG TABS Take one by mouth daily OLANZAPINE 35024075196 No Longer Active Alina Castaneda MD PhD Active NOVOLOG 100 UNIT/ML SOLN 40 units with every meal INSULIN ASPART 81482502523 No Longer Active Alina Castaneda MD PhD Active VERAPAMIL HCL CR 120 MG TAB CR 1 qPM VERAPAMIL HCL 60080078228 No Longer Active Salina Han RMA Active ZYPREXA 15 MG TABS Take 1 tablet by mouth daily OLANZAPINE 23475930753 No Longer Active Marvel MENDOZAP Active ALBUTEROL SULFATE (2.5 MG/3ML) 0.083% NEBU 1 neb tid and prn cough ALBUTEROL SULFATE 70487552332 No Longer Active Alina Castaneda MD PhD Active LANTUS 100 UNIT/ML SOLN 60 units sq q hs INSULIN GLARGINE 68320103852 No Longer Active CRYSTAL Suarez Active ALBUTEROL SULFATE (2.5 MG/3ML) 0.083% NEBU 1 neb tid and prn cough ALBUTEROL SULFATE (2.5 MG/3ML) 0.083% NEBU 915032 ALBUTEROL SULFATE Inactive ZYPREXA 15 MG TABS Take 1 tablet by mouth daily ZYPREXA 15 MG TABS 743253 OLANZAPINE Inactive VERAPAMIL HCL CR 120 MG TAB CR 1 qPM VERAPAMIL HCL CR 120 MG TAB CR VERAPAMIL HCL Inactive ZYPREXA 10 MG TABS Take one by mouth daily ZYPREXA 10 MG TABS 297852 OLANZAPINE Inactive TOPROL XL 100 MG [id number] 1 @ HS TOPROL XL 100 MG DG98N-GNT METOPROLOL SUCCINATE Inactive LEVEMIR 100 UNIT/ML SOLN 90 units SQ qHS LEVEMIR 100 UNIT/ML SOLN INSULIN DETEMIR Inactive PROMETHAZINE-CODEINE 6.25-10 MG/5ML SYRP 1 tsp po q 6 hours prn cough PROMETHAZINE-CODEINE 6.25-10 MG/5ML SYRP 866600 PROMETHAZINE- CODEINE Inactive GUAIFENESIN 600 MG OY11F-ILE 1 tablet by mouth twice daily if needed for cough GUAIFENESIN 600 MG NX61S-JIU GUAIFENESIN Inactive ALBUTEROL SULFATE 0.083 % NEBU SOLN one vial per nebulizer TID and PRN cough/ soa ALBUTEROL SULFATE 0.083 % NEBU SOLN 585517 ALBUTEROL SULFATE Inactive ZYPREXA 5 MG TABS take one tablet by mouth every evening ZYPREXA 5 MG TABS 991577 OLANZAPINE Inactive HYDROCODONE-ACETAMINOPHEN 5-325 MG TABS take one tablet by mouth every four hours as needed for pain HYDROCODONE-ACETAMINOPHEN 5-325 MG TABS 309323 HYDROCODONE-ACETAMINOPHEN Inactive BACTROBAN 2 % CREAM apply to ear and nose twice daily BACTROBAN 2 % CREAM 744119 MUPIROCIN CALCIUM Inactive CYCLOBENZAPRINE HCL 10 MG TABS 1/2 tablet by mouth every 8 hours as needed for muscle spasms CYCLOBENZAPRINE HCL 10 MG TABS 224458 CYCLOBENZAPRINE HCL Inactive NAVANE 10 MG CAPS 1/2 tablet twice a day NAVANE 10 MG CAPS THIOTHIXENE Inactive DOXEPIN HCL 10 MG CAPS Take 1 tablet by mouth daily DOXEPIN HCL 10 MG CAPS 9947835 DOXEPIN HCL Inactive HYDROCODONE-ACETAMINOPHEN 7.5-325 MG TABS 1 four times a day as needed for pain HYDROCODONE-ACETAMINOPHEN 7.5-325 MG TABS 929634 HYDROCODONE-ACETAMINOPHEN Inactive NIACIN CR 500 MG CR-TABS 2 qHS NIACIN CR 500 MG CR- TABS NIACIN Inactive ORPHENADRINE CITRATE ER 100 MG [id number] 1 every 12 hr. as needed ORPHENADRINE CITRATE ER 100 MG PL50H-PKQ ORPHENADRINE CITRATE Inactive ACETAMINOPHEN 500 MG TABS 2 Q 6 hr. PRN ACETAMINOPHEN 500 MG TABS 613942 ACETAMINOPHEN Inactive SAPHRIS 5 MG SUBL by mouth twice a day SAPHRIS 5 MG SUBL ASENAPINE MALEATE Inactive NIACIN ER 500 MG CR-TABS 4 qHS (for triglycerides) NIACIN ER 500 MG CR-TABS NIACIN Inactive IBUPROFEN 200 MG TABS 1 Q 6 hr. PRN IBUPROFEN 200 MG TABS 743192 IBUPROFEN Inactive FLUTICASONE PROPIONATE 50 MCG/ACT SUSP 2 sprays each nostril qDay x 30 days FLUTICASONE PROPIONATE 50 MCG/ACT SUSP 7636562 FLUTICASONE PROPIONATE Inactive EQL TRUETEST TEST STRP Test blood sugar TID EQL TRUETEST TEST STRP GLUCOSE BLOOD Inactive TERESE CONTOUR TEST STRP monitor blood sugars 3x/day TERESE CONTOUR TEST STRP GLUCOSE BLOOD Inactive DETROL LA 4 MG EX42D-GYR Take 1 tablet by mouth daily DETROL LA 4 MG LF08V-HMK TOLTERODINE TARTRATE Inactive ZYPREXA 7.5 MG TABS 1 at HS ZYPREXA 7.5 MG TABS 420425 OLANZAPINE Inactive THIOTHIXENE 5 MG CAPS by mouth twice a day THIOTHIXENE 5 MG CAPS 321842 THIOTHIXENE Inactive UROXATRAL 10 MG [id number]-CDF Take 1 tablet by mouth daily UROXATRAL 10 MG IW90G-WDU ALFUZOSIN HCL Inactive ACYCLOVIR 400 MG ORAL TABS 1 pill three times daily x 5 days, for cold sore outbreak ACYCLOVIR 400 MG ORAL TABS 334660 ACYCLOVIR Inactive TRUETEST TEST STRP check sugars 4x/day TRUETEST TEST STRP GLUCOSE BLOOD Inactive HUMALOG 100 UNIT/ML SOLN Take 20 units with breakfast, 10u with lunch and suppetr. HUMALOG 100 UNIT/ML SOLN INSULIN LISPRO ( HUMAN) Inactive CYCLOBENZAPRINE HCL 10 MG TABS 1 tablet by mouth three times daily, scheduled CYCLOBENZAPRINE HCL 10 MG TABS 999158 CYCLOBENZAPRINE HCL Inactive ACCU-CHEK ROSA INVITR STRP use strips with device to check blood sugars 3 times daily ACCU-CHEK ROSA INVITR STRP GLUCOSE BLOOD Inactive ACCU-CHEK ROSA UZMA Use device to check blood sugars ACCU-CHEK ROSA UZMA BLOOD GLUCOSE MONITORING SUPPL Inactive FLUVOXAMINE MALEATE 100 MG ORAL TABS Take 1/2 tab at noon FLUVOXAMINE MALEATE 100 MG ORAL TABS 741015 FLUVOXAMINE MALEATE Inactive FLUVOXAMINE MALEATE 100 MG TABS Take one (1) tablet by mouth am, 1/2 at noon FLUVOXAMINE MALEATE 100 MG TABS 907295 FLUVOXAMINE MALEATE Inactive BACTROBAN 2 % CREAM Apply to affected area BID for up to 10 days BACTROBAN 2 % CREAM 330691 MUPIROCIN CALCIUM Inactive NOVOFINE 32G X 6 MM MISC use one four times per day NOVOFINE 32G X 6 MM MISC INSULIN PEN NEEDLE Inactive TRAZODONE HCL 100 MG ORAL TABS 1 tab by mouth for sleep TRAZODONE HCL 100 MG ORAL TABS 625716 TRAZODONE HCL Inactive LOVAZA 1 GM CAPS 4 daily (for triglycerides) LOVAZA 1 GM CAPS 038339 PTKPZ-9-WNYJ ETHYL ESTERS Inactive METFORMIN HCL ER 500 MG LL76T-LYH Take three tablets by mouth everyday METFORMIN HCL ER 500 MG UF25F-ODE METFORMIN HCL Inactive METOPROLOL SUCCINATE 100 MG VX01U-SLU 1 by mouth daily for blood pressure METOPROLOL SUCCINATE 100 MG YN82G-IDD METOPROLOL SUCCINATE Inactive AMITIZA 24 MCG ORAL CAPS Take one capsule BID for constipation. AMITIZA 24 MCG ORAL CAPS LUBIPROSTONE Inactive TOLTERODINE TARTRATE 2 MG TABS 1 pill twice daily, for bladder TOLTERODINE TARTRATE 2 MG TABS 513311 TOLTERODINE TARTRATE Inactive COLACE 100 MG CAPS 1 pill by mouth twice daily, for constipation COLACE 100 MG CAPS 1360995 DOCUSATE SODIUM Inactive LOMOTIL 2.5-0.025 MG ORAL TABS take 1-2 tabs PO after each stool, no more than 8 in 24 hours LOMOTIL 2.5-0.025 MG ORAL TABS 9231348 DIPHENOXYLATE-ATROPINE Inactive ZOFRAN 4 MG TABS 1 po q4hr PRN Nausea ZOFRAN 4 MG TABS 530587 ONDANSETRON HCL Inactive HYDROCODONE-ACETAMINOPHEN 5-325 MG TABS 2 tabs by mouth three times daily for pain HYDROCODONE-ACETAMINOPHEN 5-325 MG TABS 695901 HYDROCODONE-ACETAMINOPHEN Inactive ZOLPIDEM TARTRATE 10 MG TABS take at bedtime ZOLPIDEM TARTRATE 10 MG TABS 842405 ZOLPIDEM TARTRATE Inactive LISINOPRIL 20 MG TABS 1 BID LISINOPRIL 20 MG TABS 419187 LISINOPRIL Inactive TRAVATAN Z 0.004 % SOLN 1 gtt each eye daily TRAVATAN Z 0.004 % SOLN TRAVOPROST Inactive LATUDA 60 MG ORAL TABS Take one by mouth daily LATUDA 60 MG ORAL TABS LURASIDONE HCL Inactive FLUVOXAMINE MALEATE 50 MG ORAL TABS 1 tab by mouth daily FLUVOXAMINE MALEATE 50 MG ORAL TABS 450057 FLUVOXAMINE MALEATE Inactive CEFDINIR 300 MG CAPS by mouth twice a day CEFDINIR 300 MG CAPS 217180 CEFDINIR Inactive AZITHROMYCIN 500 MG SOLR 1 po q day AZITHROMYCIN 500 MG SOLR 41742328250 AZITHROMYCIN Inactive AMOXICILLIN 500 MG CAPS 2 po BID x 10 days AMOXICILLIN 500 MG CAPS 596009 AMOXICILLIN Inactive PENICILLIN V POTASSIUM 500 MG TABS 1 pill by mouth three times daily PENICILLIN V POTASSIUM 500 MG TABS 440422 PENICILLIN V POTASSIUM Inactive KEFLEX 500 MG CAP 1 po BID x 7 days KEFLEX 500 MG CAP 748623 CEPHALEXIN Inactive Immunizations Vaccine Administration Date Value [...] Fluvirin, Fluarix, Agriflu(>=18 yo)) Fluzone (>3 yrs.) [[id number]] Influenza, seasonal, injectable pneumococcal immunization administered Pneumovax [...] HGBA1C - Chemistry sodium, serum 140 mmol/L 940-701 3128/11/09 potassium, serum 4.0 mmol/L 3.5-5.2 chloride, serum [...] Acid - Chemistry cholesterol, serum 187 mg/dL 640-343 1150/06/14 triglyceride, serum, fasting 246 mg/dL 30-200 HDL [...] negative Encounters Code Encounter Date Provider Facility CPT-69983 Level 3 Est. Patient 09:12:14 SAW SETTER Mima Erazo [facility] CPT-59293 Level 3 Est. Patient 16:52:51 CDT Vanessa Hickey MD [facility] CPT-22099 Level 3 Est. Patient 17:40:16 CDT Mima Erazo [facility] CPT-19638 Level 3 Est. Patient 14:34:52 CDT Vanessa Hickey MD [facility] CPT-65087 Level 3 Est. Patient 16:27:51 CDT Mima Erazo [facility] [place] CPT-39053 Level 3 Est. Patient 14:39:00 SAW SETTER Vanessa Hickey MD [facility] CPT-03593 Level 2 Est. Patient 18:43:34 CDT Mima Erazo [facility] CPT-54311 Level 3 Est. Patient 16:22:09 CDT Cherelle Avila [facility] [place] CPT-91945 Level 4 Est. Patient 17:55:14 CDT Mima Erazo [facility] CPT-01007 Level 2 Est. Patient 17:13:21 CDT Alina Castaneda MD [facility]-98687 Level 3 Est. Patient 14:46:15 CDT Vanessa Hickey MD [facility]-60496 Level 3 Est. Patient 09:34:56 CDT Alina Castaneda MD [facility]-26291 Level 3 Est. Patient 21:40:19 CDT Mima Erazo [facility] CPT-47485 Level 3 Est. Patient 09:26:40 CDT Marvel Charles [facility]-16269 Level 3 Est. Patient 12:36:43 CDT Vanessa Hickey MD [facility]-45991 Level 3 Est. Patient 12:57:49 CDT Vanessa Hickey MD [facility]-24186 Level 3 Est. Patient 00:28:25 CDT Alina Castaneda MD [facility]-89376 Level 2 Est. Patient 12:52:14 CDT Alina Castaneda MD [facility]-30214 Level 3 Est. Patient 11:51:18 SAW SETTER Alina Castaneda MD [facility]-44104 Level 3 Est. Patient 10:09:22 SAW SETTER Alina Castaneda MD [facility]-63747 Level 3 Est. Patient 14:36:26 SAW SETTER Marvel [facility] Level 3 Est. Patient 13:34:47 SAW SETTER Alina Castaneda MD [facility]-69476 Level 3 Est. Patient 19:52:08 SAW SETTER Alina Castaneda [place] [facility] [facility] [place] Level 3 Est. Patient 10:01:51 SAW SETTER Marvel Araceli [facility]-82785 Level 3 Est. Patient 21:54:06 CDT Vanessa Hickey MD [facility]-67436 Level 3 Est. Patient 08:54:46 CDT Alina Castaneda MD [facility] [place] Level 3 Est. Patient 09:32:11 [facility]-82200 Level 3 Est. Patient 12:02:49 CDT Alina Castaneda MD [facility]-05657 Level 3 Est. Patient 19:17:33 CDT Alina Castaneda MD [facility] [place] Level 3 Est. Patient 13:19:10 CDT Marvel Charles [facility]-41939 Level 3 Est. Patient 08:20:05 CDT Alina Castaneda MD [facility]-07875 Level 3 Est. Patient 15:17:18 CDT Alina Castaneda MD [facility]-14604 Level 3 Est. Patient 14:25:36 SAW SETTER Marvel Charles [facility]86210 Level 3 Est. Patient 10:09:15 SAW SETTER Marvel Charles [facility] [facility] Level 3 Est. Patient 21:28:43 CDT Alina Castaneda MD [facility] [place] [facility] Level 3 Est. Patient 15:20:11 CDT Marvel Charles [facility] CPT-74086 Level 4 Est. Patient 19:08:12 CDT Alina Castaneda MD [facility]-00644 Level 3 Est. Patient 15:06:39 CDT Marvel Charles [facility] CPT-29487 Level 4 Est. Patient 17:48:15 CDT Alina Castaneda MD [facility] CPT-76051 Level 3 Est. Patient 14:53:49 CDT Alina Castaneda MD [facility]-46634 Level 3 Est. Patient 09:35:16 CDT Alina Castaneda MD [facility]-16970 Level 3 Est. Patient 12:23:22 CDT Alina Castaneda MD [facility] CPT-23812 Level 3 Est. Patient 16:19:15 CDT Alina Castaneda MD [facility] CPT-50629 Level 3 Est. Patient 21:39:56 SAW SETTER Alina Castaneda MD [facility] CPT-73465 Level 4 Est. Patient 14:12:56 SAW SETTER Alina Castaneda MD [facility] CPT-82284 Level 2 Est. Patient 15:34:57 SAW SETTER Alina Castaneda MD [facility] CPT-67072 Level 3 Est. Patient 12:17:04 SAW SETTER Alina Castaneda MD [facility]-20084 Level 3 Est. Patient 09:18:18 SAW SETTER Marvel Charles [facility] CPT-19840 Level 2 Est. Patient 21:50:24 CDT Alina Castaneda MD [facility]-77820 Level 3 Est. Patient 09:17:28 CDT Brooksjohn [facility]-19006 Level 4 Est. Patient 18:54:02 CDT Alina Castaneda MD [facility]-63875 Level 3 Est. Patient 10:47:10 CDT Alina Castaneda MD [facility] [place] [facility] Level 3 Est. Patient 09:22:20 CDT Marvel [facility]-50542 Level 3 Est. Patient 16:39:43 CDT Marvel Arac[facility]-44258 Level 3 Est. Patient 16:05:16 CDT Alina Castaneda MD [facility]-52171 Level 3 Est. Patient 00:29:15 CDT Alina Castaneda MD [facility] [place] [facility] Level 3 Est. Patient 10:49:22 SAW SETTER Brooksjohn [facility]-28204 Level 3 Est. Patient 21:30:19 SAW SETTER Alina Castaneda MD [facility]-89748 Level 4 Est. Patient 17:04:11 SAW SETTER Brooksjohn [facility]-76892 Level 3 Est. Patient 15:34:11 SAW SETTER [place] Ar[facility]-97678 Level 2 Est. Patient 12:51:58 SAW SETTER Alina Castaneda MD [facility]-92791 Level 3 Est. Patient 13:20:01 SAW SETTER Alina Castaneda MD [facility]-77111 Level 3 Est. Patient 09:23:35 CDT Alina Castaneda MD PhD [facility] Procedures Code Procedure Name Date Entry Date Standard Description CPT-59734 HGBA1C - LAB USE ONLY 09:30:27 SAW SETTER CPT-98052 BMP - LAB USE ONLY 09:30:27 SAW SETTER CPT-64493 Venipuncture Draw Fee 09:30:26 SAW SETTER CPT-TCMM Transitional Care Mgmt-Moderate 10:25:31 CDT CPT-36199 Bladder Scan 14:34:53 CDT CPT-58188 Bladder Scan 14:39:01 SAW SETTER CPT-TCMM Transitional Care Mgmt-Moderate 10:30:19 SAW SETTER CPT-21914 Bladder Scan 12:36:44 CDT CPT-42803 Bladder Scan 21:54:06 CDT CPT-G0008 Administration of Influenza Virus Vaccine 13:05:26 CDT CPT-77928 Fluzone Quadrivalent Intramuscular Suspension 0.5 ML 13: 05:26 CDT CPT-86201 Administration single or combination vaccine inc oral 11 :49:51 CDT CPT-54870 Pneumovax 11:49:51 CDT CPT-44541 Ribs unilateral 2V 12:37:22 SAW SETTER CPT-05856 Chest 2V Frontal and Lat 17:15:26 CDT CPT-21505 Abx/Therapy Injection 18:54:02 CDT CPT-J0696 Rocephin 1000 mg (Ceftriaxone) 16:00:32 CDT CPT-03092 Chest 2V Frontal and Lat 15:26:45 CDT CPT-14856 Chest 2V Frontal and Lat 10:23:27 CDT CPT-79506 Venipuncture Draw Fee 10:11:00 CDT CPT-67905 Administration single or combination vaccine inc oral 11 :56:38 CDT CPT-85044 Influenza split virus > age 3 11:56:38 CDT CPT-47311 Venipuncture Draw Fee 08:49:54 SAW SETTER CPT-58078 EKG Trac and Interp 17:54:19 SAW SETTER
--- OUTSIDE RECORDS SUMMARY | 2018-07-02 17:35 | XMS REPORT | Clinical Summary ---
Author Author Admin, TERELL Organization [employer] Address Unknown Phone Unavailable Allergies, Adverse 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 Erazo SOCIAL SERVICE LIAISON Benign paroxysmal positional vertigo Vertigo, benign paroxysmal position 386.11 Inactive Mima Erazo SOCIAL SERVICE LIAISON Benign paroxysmal positional vertigo High-risk sexual behavior V69.2 Active Alina Castaneda MD PhD High-risk sexual behavior Erectile dysfunction 302.72 Active Alina Castaneda MD PhD Psychosexual dysfunction with inhibited sexual excitement Constipation 564.00 Active Alina Castaneda MD PhD Constipation, unspecified Skin lesion 709.9 Active Alina Castaneda MD PhD Unspecified disorder of skin and subcutaneous tissue Malaise and fatigue 780.79 Active Cherelle Speaks SOCIAL SERVICE LIAISON Other malaise and fatigue Diarrhea 787.91 Active Cherelle Speaks SOCIAL SERVICE LIAISON Diarrhea PHARYNGITIS 462 Active Cherelle Speaks SOCIAL SERVICE LIAISON Acute pharyngitis Colitis 558.9 Active Mima Erazo SOCIAL SERVICE LIAISON Other and unspecified noninfectious gastroenteritis and colitis [...] STROKE ICD-V17.1 Inactive Marvel Charles ORDER ENTRY FATIGUE ICD-780.79 Inactive Alina Castaneda MD PhD [...] Generic Name NDC Status Provider Patient Instruction TRAZODONE HCL 100 MG TABS 1 every night to prevent headaches TRAZODONE HCL 93625492228 Active Gabrielle Madl REFINERY SUPERINTENDENT Active LATUDA 60 MG ORAL TABS 1 tab daily LURASIDONE HCL 34562665386 Active Gabrielle Madl REFINERY SUPERINTENDENT Active CLONAZEPAM 1 MG TABS 1 pill by mouth three times daily CLONAZEPAM 67837805695 Active Gabrielle Madl REFINERY SUPERINTENDENT Active [facility] MILK OF MAGNESIA 400 MG/5ML ORAL SUSP 30ml by mouth bid prn MAGNESIUM HYDROXIDE 47215021486 Active Mason Loredo MD Active TYLENOL 8 HOUR 650 MG ORAL CR-TABS 1 tab QID prn ACETAMINOPHEN 13584199682 Active Mason Loredo MD Active MYLANTA GAS RELIEF MAXIMUM STR 125 MG ORAL CAPS 30cc every 4 hours prn 12/01 SIMETHICONE 97754575491 Active Mason Loredo MD Active IMODIUM A-D 2 MG ORAL TABS 1 tab QID as needed LOPERAMIDE HCL 85470956593 Active Mason Loredo MD Active FLUVOXAMINE MALEATE 50 MG ORAL TABS 1 tab by mouth daily FLUVOXAMINE MALEATE 06252177094 Active Mason Loredo MD Active TRAVATAN Z 0.004 % SOLN 1 gtt each eye daily TRAVOPROST 42384533810 No Longer Active Mason Loredo MD Active LISINOPRIL 20 MG TABS 1 BID LISINOPRIL 21112967264 No Longer Active Mason Loredo MD Active LEVEMIR FLEXTOUCH 100 UNIT/ML SC SOPN 60 units SQ each evening, for diabetes INSULIN DETEMIR 45740335016 Active Mason Loredo MD Active ZOLPIDEM TARTRATE 10 MG TABS take at bedtime ZOLPIDEM TARTRATE 50453419110 No Longer Active Mason Loredo MD Active HYDROCODONE-ACETAMINOPHEN 5-325 MG TABS 2 tabs by mouth three times daily for pain HYDROCODONE-ACETAMINOPHEN 46244685307 No Longer Active Mason Loredo MD Active ZOFRAN 4 MG TABS 1 po q4hr PRN Nausea ONDANSETRON HCL 91002917226 No Longer Active Mason Loredo MD Active LOMOTIL 2.5-0.025 MG ORAL TABS take 1-2 tabs PO after each stool, no more than 8 in 24 hours DIPHENOXYLATE-ATROPINE 93100537971 No Longer Active Mason Loredo MD Active COLACE 100 MG CAPS 1 pill by mouth twice daily, for constipation DOCUSATE SODIUM 35792584747 No Longer Active Mima Erazo APRN Active FLONASE ALLERGY RELIEF 50 MCG/ACT NASAL SUSP One spray each nostril BID x 1 week then daily FLUTICASONE PROPIONATE 89653667642 Active Mima Erazo APRN Active BD PEN NEEDLE MINI U/F 31G X 5 MM MISC 4 a day INSULIN PEN NEEDLE 55553001676 Active Marvel Mackenzieglari ORDER ENTRY Active AMITIZA 24 MCG ORAL CAPS Take one capsule BID for constipation LUBIPROSTONE 51916031544 Active Mima Erazo APRN Active TRUEPLUS LANCETS 30G MISC 3 a day LANCETS 35535318701 Active Marvel MARROQUIN Active TOLTERODINE TARTRATE 2 MG TABS 1 pill twice daily, for bladder TOLTERODINE TARTRATE 95517638418 No Longer Active Vanessa Hickey MD Active AMITIZA 24 MCG ORAL CAPS Take one capsule BID for constipation. LUBIPROSTONE 74541157139 No Longer Active Vanessa Hickey MD Active FLUVOXAMINE MALEATE 100 MG ORAL TABS take one tab every AM et HS, and take 1/ 2 tab at noon FLUVOXAMINE MALEATE 99135630337 Active Grace Azam RMA Active METOPROLOL SUCCINATE 100 MG [id number] 1 by mouth daily for blood pressure METOPROLOL SUCCINATE 60259044890 No Longer Active Grace Azam RMA Active METFORMIN HCL ER 500 MG [id number] Take three tablets by mouth everyday METFORMIN HCL 53142587779 No Longer Active Grace Azam RMA Active LOVAZA 1 GM CAPS 4 daily (for triglycerides) OMEGA-3- ACID ETHYL ESTERS 34277730040 No Longer Active Grace Azam RMA Active TRAZODONE HCL 100 MG ORAL TABS 1 tab by mouth for sleep TRAZODONE HCL 92883529781 No Longer Active Grace Azam RMA Active NOVOFINE 32G X 6 MM MISC use one four times per day INSULIN PEN NEEDLE 62829729274 No Longer Active Grace Azam RMA Active BACTROBAN 2 % CREAM Apply to affected area BID for up to 10 days MUPIROCIN CALCIUM 59880313223 No Longer Active Grace Azam RMA Active KEFLEX 500 MG CAP 1 po BID x 7 days CEPHALEXIN 78601188018 No Longer Active Cherelle Avila APRN Active FLUVOXAMINE MALEATE 100 MG TABS Take one (1) tablet by mouth am, 1/2 at noon FLUVOXAMINE MALEATE 77787228593 No Longer Active Mima Yokum SOCIAL SERVICE LIAISON Active CORICIDIN HBP CONGESTION/COUGH 10-200 MG ORAL CAPS Take as directed on box as needed for cold/flu symptoms DEXTROMETHORPHAN-GUAIFENESIN 82792088774 Active Cherelle Avila SOCIAL SERVICE LIAISON Active OMEGA-3 300 MG ORAL CAPS 4 caps by mouth daily OMEGA-3 FATTY ACIDS 99061723959 Active Mima Eraoz SOCIAL SERVICE LIAISON Active FLUVOXAMINE MALEATE 100 MG ORAL TABS Take 1/2 tab at noon FLUVOXAMINE MALEATE 47938473674 No Longer Active Cherelle Speakluciana SOCIAL SERVICE LIAISON Active [facility] LUBRICANT EYE DROPS 0.4-0.3 % OPHTH SOLN POLYETHYL GLYCOL-PROPYL GLYCOL 38577456171 Active Mima Erazo SOCIAL SERVICE LIAISON Active MIRALAX POWD 17g by mouth daily, for constipation POLYETHYLENE GLYCOL 3350 37834858357 Active Alina Castaneda MD PhD Active HUMALOG KWIKPEN 100 UNIT/ML SC SOPN 20 units with breakfast, 10 units with lunch, 10 units with dinner, for diabetes INSULIN LISPRO (HUMAN ) 52317556156 Active Alina Castaneda MD PhD Active LATUDA 120 MG ORAL TABS 1 pill by mouth nightly LURASIDONE HCL 88128552339 Active Alina Castaneda MD PhD Active TRUETEST TEST STRP check blood sugars 3x/day GLUCOSE BLOOD 02345929381 Active Marvel MENDOZAP Active ACCU-CHEK ROSA UZMA Use device to check blood sugars BLOOD GLUCOSE MONITORING SUPPL 78974192789 No Longer Active Maliheh Ziglari ORDER ENTRY Active ACCU-CHEK ROSA INVITR STRP use strips with device to check blood sugars 3 times daily GLUCOSE BLOOD 51147530407 No Longer Active Mallashondaeh 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 ORDER ENTRY Active VERAPAMIL HCL ER 180 MG ORAL CR-TABS 1 pill by mouth twice daily, for migraine prevention VERAPAMIL HCL 71435238960 Active CRYSTAL Rodrigues Active CYCLOBENZAPRINE HCL 10 MG TABS 1 tablet by mouth three times daily, scheduled CYCLOBENZAPRINE HCL 60082675829 No Longer Active Alina Castaneda MD PhD Active HUMALOG 100 UNIT/ML SOLN Take 20 units with breakfast, 10u with lunch and suppetr. INSULIN LISPRO (HUMAN) 83129580127 No Longer Active Alina Castaneda MD PhD Active TRUETEST TEST STRP check sugars 4x/day GLUCOSE BLOOD 60614208516 No Longer Active Alina Castaneda MD PhD Active MORPHINE SULFATE 30 MG TABS 1 pill by mouth twice daily, for pain MORPHINE SULFATE 28656884258 No Longer Active Mason Loredo MD Active ACYCLOVIR 400 MG ORAL TABS 1 pill three times daily x 5 days, for cold sore outbreak ACYCLOVIR 96173079332 No Longer Active Alina Castaneda MD PhD Active PENICILLIN V POTASSIUM 500 MG TABS 1 pill by mouth three times daily PENICILLIN V POTASSIUM 77939221646 No Longer Active Alina Castaneda MD PhD Active UROXATRAL 10 MG [id number] Take 1 tablet by mouth daily ALFUZOSIN HCL 34071641555 No Longer Active Alina Castaneda MD PhD Active THIOTHIXENE 5 MG CAPS by mouth twice a day THIOTHIXENE 70030929322 No Longer Active Alina Castaneda MD PhD Active ZYPREXA 7.5 MG TABS 1 at HS OLANZAPINE 58702801157 No Longer Active Alina Castaneda MD PhD Active BD INSULIN SYRINGE 28G X 1/2" 1 ML MISC 1 four times per day INSULIN SYRINGE-NEEDLE U-100 36678610453 Active Marvel Mackenzieglestela ORDER ENTRY Active DETROL LA 4 MG [id number] Take 1 tablet by mouth daily TOLTERODINE TARTRATE 93038659255 No Longer Active Alina Castaneda MD PhD Active TERESE CONTOUR TEST STRP monitor blood sugars 3x/day GLUCOSE BLOOD 31796402026 No Longer Active Alina Castaneda MD PhD Active EQL TRUETEST TEST STRP Test blood sugar TID GLUCOSE BLOOD 82338219618 No Longer Active Alina Castaneda MD PhD Active FLUTICASONE PROPIONATE 50 MCG/ACT SUSP 2 sprays each nostril qDay x 30 days FLUTICASONE PROPIONATE 73695200801 No Longer Active Alina Castaneda MD PhD Active IBUPROFEN 200 MG TABS 1 Q 6 hr. PRN IBUPROFEN 70807112836 No Longer Active Alina Castaneda MD PhD Active NIACIN ER 500 MG CR-TABS 4 qHS (for triglycerides) NIACIN 71729744321 No Longer Active Alina Castaneda MD PhD Active ALFUZOSIN HCL ER 10 MG [id number] 1 tablet daily ALFUZOSIN HCL 52641120798 Active CRYSTAL Rodrigues Active SAPHRIS 5 MG SUBL by mouth twice a day ASENAPINE MALEATE 12007145278 No Longer Active Mallashondaeh Ziglari ORDER ENTRY Active ACETAMINOPHEN 500 MG TABS 2 Q 6 hr. PRN ACETAMINOPHEN 51869253445 No Longer Active Maliheh Ziglari ORDER ENTRY Active ORPHENADRINE CITRATE ER 100 MG [id number]-VNJ 1 every 12 hr. as needed ORPHENADRINE CITRATE 60387760294 No Longer Active Alina Castaneda MD PhD Active NIACIN CR 500 MG CR-TABS 2 qHS NIACIN 84462981556 No Longer Active Alina Castaneda MD PhD Active AMOXICILLIN 500 MG CAPS 2 po BID x 10 days AMOXICILLIN 38717391467 No Longer Active Alina Castaneda MD PhD Active HYDROCODONE-ACETAMINOPHEN 7.5-325 MG TABS 1 four times a day as needed for pain HYDROCODONE-ACETAMINOPHEN 57807007987 No Longer Active Alina Castaneda MD PhD Active DOXEPIN HCL 10 MG CAPS Take 1 tablet by mouth daily DOXEPIN HCL 16957746368 No Longer Active Salina Han RMA Active NAVANE 10 MG CAPS 1/2 tablet twice a day THIOTHIXENE No Longer Active Salina Han [facility] Active CYCLOBENZAPRINE HCL 10 MG TABS 1/2 tablet by mouth every 8 hours as needed for muscle spasms CYCLOBENZAPRINE HCL 97554675731 No Longer Active Alina Castaneda MD PhD Active BACTROBAN 2 % CREAM apply to ear and nose twice daily MUPIROCIN CALCIUM 50603050290 No Longer Active Alina Castaneda MD PhD Active HYDROCODONE-ACETAMINOPHEN 5-325 MG TABS take one tablet by mouth every four hours as needed for pain HYDROCODONE-ACETAMINOPHEN 81042353112 No Longer Active Alina Castaneda MD PhD Active ZYPREXA 5 MG TABS take one tablet by mouth every evening OLANZAPINE 80707759624 No Longer Active Alina Castaneda MD PhD Active ALBUTEROL SULFATE 0.083 % NEBU SOLN one vial per nebulizer TID and PRN cough/ soa ALBUTEROL SULFATE 16226242166 No Longer Active Alina Castaneda MD PhD Active GUAIFENESIN 600 MG [id number] 1 tablet by mouth twice daily if needed for cough GUAIFENESIN 52226831564 No Longer Active Marvel MARROQUIN Active AZITHROMYCIN 500 MG SOLR 1 po q day AZITHROMYCIN 42670749159 No Longer Active Alina Castaneda MD PhD Active PROMETHAZINE-CODEINE 6.25-10 MG/5ML SYRP 1 tsp po q 6 hours prn cough PROMETHAZINE-CODEINE 26710722809 No Longer Active Alina Castaneda MD PhD Active CEFDINIR 300 MG CAPS by mouth twice a day CEFDINIR 56551682007 No Longer Active Alina Castaneda MD PhD Active METFORMIN HCL 500 MG [id number] Take 3 tablets by mouth everyday METFORMIN HCL 04530969070 No Longer Active Alina Castaneda MD PhD Active LEVEMIR 100 UNIT/ML SOLN 90 units SQ qHS INSULIN DETEMIR 07676141569 No Longer Active Marvel MARROQUIN Active TOPROL XL 100 MG [id number]-TNS 1 @ HS METOPROLOL SUCCINATE 83200907063 No Longer Active Marvel MARROQUIN Active ALLOPURINOL 300 MG TABS Take one by mouth daily ALLOPURINOL 16812508126 Active Mima Erazo SOCIAL SERVICE LIAISON Active ZYPREXA 10 MG TABS Take one by mouth daily OLANZAPINE 41496593885 No Longer Active Alina Castaneda MD PhD Active NOVOLOG 100 UNIT/ML SOLN 40 units with every meal INSULIN ASPART 01492652354 No Longer Active Alina Castaneda MD PhD Active VERAPAMIL HCL CR 120 MG TAB CR 1 qPM VERAPAMIL HCL 78529840723 No Longer Active Salina ROJAS Active ZYPREXA 15 MG TABS Take 1 tablet by mouth daily OLANZAPINE 62717395832 No Longer Active Marvel MARROQUIN Active ALBUTEROL SULFATE (2.5 MG/3ML) 0.083% NEBU 1 neb tid and prn cough ALBUTEROL SULFATE 48029177512 No Longer Active Alina Castaneda MD PhD Active LANTUS 100 UNIT/ML SOLN 60 units sq q hs INSULIN GLARGINE 12131699909 No Longer Active CRYSTAL Suarez Active ALBUTEROL SULFATE (2.5 MG/3ML) 0.083% NEBU 1 neb tid and prn cough ALBUTEROL SULFATE (2.5 MG/3ML) 0.083% NEBU 093033 ALBUTEROL SULFATE Inactive ZYPREXA 15 MG TABS Take 1 tablet by mouth daily ZYPREXA 15 MG TABS 412497 OLANZAPINE Inactive VERAPAMIL HCL CR 120 MG TAB CR 1 qPM VERAPAMIL HCL CR 120 MG TAB CR VERAPAMIL HCL Inactive ZYPREXA 10 MG TABS Take one by mouth daily ZYPREXA 10 MG TABS 778012 OLANZAPINE Inactive TOPROL XL 100 MG [id number] 1 @ HS TOPROL XL 100 MG [id number]-IRN METOPROLOL SUCCINATE Inactive LEVEMIR 100 UNIT/ML SOLN 90 units SQ qHS LEVEMIR 100 UNIT/ML SOLN INSULIN DETEMIR Inactive PROMETHAZINE-CODEINE 6.25-10 MG/5ML SYRP 1 tsp po q 6 hours prn cough PROMETHAZINE-CODEINE 6.25-10 MG/5ML SYRP 109458 PROMETHAZINE- CODEINE Inactive GUAIFENESIN 600 MG [id number]-VSI 1 tablet by mouth twice daily if needed for cough GUAIFENESIN 600 MG [id number] GUAIFENESIN Inactive ALBUTEROL SULFATE 0.083 % NEBU SOLN one vial per nebulizer TID and PRN cough/ soa ALBUTEROL SULFATE 0.083 % NEBU SOLN 275222 ALBUTEROL SULFATE Inactive ZYPREXA 5 MG TABS take one tablet by mouth every evening ZYPREXA 5 MG TABS 957017 OLANZAPINE Inactive HYDROCODONE-ACETAMINOPHEN 5-325 MG TABS take one tablet by mouth every four hours as needed for pain HYDROCODONE-ACETAMINOPHEN 5-325 MG TABS 874333 HYDROCODONE-ACETAMINOPHEN Inactive BACTROBAN 2 % CREAM apply to ear and nose twice daily BACTROBAN 2 % CREAM 237758 MUPIROCIN CALCIUM Inactive CYCLOBENZAPRINE HCL 10 MG TABS 1/2 tablet by mouth every 8 hours as needed for muscle spasms CYCLOBENZAPRINE HCL 10 MG TABS 072120 CYCLOBENZAPRINE HCL Inactive NAVANE 10 MG CAPS 1/2 tablet twice a day NAVANE 10 MG CAPS THIOTHIXENE Inactive DOXEPIN HCL 10 MG CAPS Take 1 tablet by mouth daily DOXEPIN HCL 10 MG CAPS 5314150 DOXEPIN HCL Inactive HYDROCODONE-ACETAMINOPHEN 7.5-325 MG TABS 1 four times a day as needed for pain HYDROCODONE-ACETAMINOPHEN 7.5-325 MG TABS 887693 HYDROCODONE-ACETAMINOPHEN Inactive NIACIN CR 500 MG CR-TABS 2 qHS NIACIN CR 500 MG CR- TABS NIACIN Inactive ORPHENADRINE CITRATE ER 100 MG [id number] 1 every 12 hr. as needed ORPHENADRINE CITRATE ER 100 MG [id number]-ZQB ORPHENADRINE CITRATE Inactive ACETAMINOPHEN 500 MG TABS 2 Q 6 hr. PRN ACETAMINOPHEN 500 MG TABS 290342 ACETAMINOPHEN Inactive SAPHRIS 5 MG SUBL by mouth twice a day SAPHRIS 5 MG SUBL ASENAPINE MALEATE Inactive NIACIN ER 500 MG CR-TABS 4 qHS (for triglycerides) NIACIN ER 500 MG CR-TABS NIACIN Inactive IBUPROFEN 200 MG TABS 1 Q 6 hr. PRN IBUPROFEN 200 MG TABS 752029 IBUPROFEN Inactive FLUTICASONE PROPIONATE 50 MCG/ACT SUSP 2 sprays each nostril qDay x 30 days FLUTICASONE PROPIONATE 50 MCG/ACT SUSP 625696 FLUTICASONE PROPIONATE Inactive EQL TRUETEST TEST STRP Test blood sugar TID EQL TRUETEST TEST STRP GLUCOSE BLOOD Inactive TERESE CONTOUR TEST STRP monitor blood sugars 3x/day TERESE CONTOUR TEST STRP GLUCOSE BLOOD Inactive DETROL LA 4 MG [id number] Take 1 tablet by mouth daily DETROL LA 4 MG [id number]-MHG TOLTERODINE TARTRATE Inactive ZYPREXA 7.5 MG TABS 1 at HS ZYPREXA 7.5 MG TABS 962804 OLANZAPINE Inactive THIOTHIXENE 5 MG CAPS by mouth twice a day THIOTHIXENE 5 MG CAPS 695838 THIOTHIXENE Inactive UROXATRAL 10 MG [id number] Take 1 tablet by mouth daily UROXATRAL 10 MG [id number]-SSF ALFUZOSIN HCL Inactive ACYCLOVIR 400 MG ORAL TABS 1 pill three times daily x 5 days, for cold sore outbreak ACYCLOVIR 400 MG ORAL TABS 604894 ACYCLOVIR Inactive TRUETEST TEST STRP check sugars 4x/day TRUETEST TEST STRP GLUCOSE BLOOD Inactive HUMALOG 100 UNIT/ML SOLN Take 20 units with breakfast, 10u with lunch and suppetr. HUMALOG 100 UNIT/ML SOLN INSULIN LISPRO ( HUMAN) Inactive CYCLOBENZAPRINE HCL 10 MG TABS 1 tablet by mouth three times daily, scheduled CYCLOBENZAPRINE HCL 10 MG TABS 393052 CYCLOBENZAPRINE HCL Inactive ACCU-CHEK ROSA INVITR STRP use strips with device to check blood sugars 3 times daily ACCU-CHEK ROSA INVITR STRP GLUCOSE BLOOD Inactive ACCU-CHEK ROSA UZMA Use device to check blood sugars ACCU-CHEK ROSA UZMA BLOOD GLUCOSE MONITORING SUPPL Inactive FLUVOXAMINE MALEATE 100 MG ORAL TABS Take 1/2 tab at noon FLUVOXAMINE MALEATE 100 MG ORAL TABS 027946 FLUVOXAMINE MALEATE Inactive FLUVOXAMINE MALEATE 100 MG TABS Take one (1) tablet by mouth am, 1/2 at noon FLUVOXAMINE MALEATE 100 MG TABS 195161 FLUVOXAMINE MALEATE Inactive BACTROBAN 2 % CREAM Apply to affected area BID for up to 10 days BACTROBAN 2 % CREAM 569489 MUPIROCIN CALCIUM Inactive NOVOFINE 32G X 6 MM MISC use one four times per day NOVOFINE 32G X 6 MM MISC INSULIN PEN NEEDLE Inactive TRAZODONE HCL 100 MG ORAL TABS 1 tab by mouth for sleep TRAZODONE HCL 100 MG ORAL TABS 587235 TRAZODONE HCL Inactive LOVAZA 1 GM CAPS 4 daily (for triglycerides) LOVAZA 1 GM CAPS 115011 [id number]-[id number] ETHYL ESTERS Inactive METFORMIN HCL ER 500 MG [id number] Take three tablets by mouth everyday METFORMIN HCL ER 500 MG [id number] METFORMIN HCL Inactive METOPROLOL SUCCINATE 100 MG EO06D-YLQ 1 by mouth daily for blood pressure METOPROLOL SUCCINATE 100 MG QL25D-JVX METOPROLOL SUCCINATE Inactive AMITIZA 24 MCG ORAL CAPS Take one capsule BID for constipation. AMITIZA 24 MCG ORAL CAPS LUBIPROSTONE Inactive TOLTERODINE TARTRATE 2 MG TABS 1 pill twice daily, for bladder TOLTERODINE TARTRATE 2 MG TABS 103568 TOLTERODINE TARTRATE Inactive COLACE 100 MG CAPS 1 pill by mouth twice daily, for constipation COLACE 100 MG CAPS 6161729 DOCUSATE SODIUM Inactive LOMOTIL 2.5-0.025 MG ORAL TABS take 1-2 tabs PO after each stool, no more than 8 in 24 hours LOMOTIL 2.5-0.025 MG ORAL TABS 6063536 DIPHENOXYLATE-ATROPINE Inactive ZOFRAN 4 MG TABS 1 po q4hr PRN Nausea ZOFRAN 4 MG TABS 244844 ONDANSETRON HCL Inactive HYDROCODONE-ACETAMINOPHEN 5-325 MG TABS 2 tabs by mouth three times daily for pain HYDROCODONE-ACETAMINOPHEN 5-325 MG TABS 937715 HYDROCODONE-ACETAMINOPHEN Inactive ZOLPIDEM TARTRATE 10 MG TABS take at bedtime ZOLPIDEM TARTRATE 10 MG TABS 228099 ZOLPIDEM TARTRATE Inactive LISINOPRIL 20 MG TABS 1 BID LISINOPRIL 20 MG TABS 748009 LISINOPRIL Inactive TRAVATAN Z 0.004 % SOLN 1 gtt each eye daily TRAVATAN Z 0.004 % SOLN TRAVOPROST Inactive CEFDINIR 300 MG CAPS by mouth twice a day CEFDINIR 300 MG CAPS 768923 CEFDINIR Inactive AZITHROMYCIN 500 MG SOLR 1 po q day AZITHROMYCIN 500 MG SOLR 97791388766 AZITHROMYCIN Inactive AMOXICILLIN 500 MG CAPS 2 po BID x 10 days AMOXICILLIN 500 MG CAPS 916533 AMOXICILLIN Inactive PENICILLIN V POTASSIUM 500 MG TABS 1 pill by mouth three times daily PENICILLIN V POTASSIUM 500 MG TABS 397121 PENICILLIN V POTASSIUM Inactive KEFLEX 500 MG CAP 1 po BID x 7 days KEFLEX 500 MG CAP 089419 CEPHALEXIN Inactive Immunizations Vaccine Administration Date Value [...] Fluvirin, Fluarix, Agriflu(>=18 yo)) Fluzone (>3 yrs.) [[id number]] Influenza, seasonal, injectable pneumococcal immunization administered Pneumovax [...] Panel - Chemistry sodium, serum 137 mmol/L 165-513 1079/10/12 potassium, serum 4.8 mmol/L 3.5-5.2 chloride, serum 102 mmol/L 98-107 carbon dioxide, venous blood 27.6 mmol/L 21.0-32.0 blood glucose 168 mg/dL 65-110 calcium, serum 9.0 mg/dL 8.5-10.1 urea nitrogen, blood 15 mg/dL 7-18 creatinine, serum 1.04 mg/dL 0.55-1.30 sodium, serum 138 mmol/L 635-304 2314/11/11 potassium, serum 4.7 mmol/L 3.5-5.2 chloride, serum [...] % 11.6-14.8 platelet count 240 10^3/MM^3 10*3/mm3 822-312 6436/11/11 leukocyte count, blood 9.6 10^3/MM^3 10*3/mm3 4.6-10.2 [...] Acid - Chemistry cholesterol, serum 187 mg/dL 043-788 9330/06/14 triglyceride, serum, fasting 246 mg/dL 30-200 HDL [...] negative Encounters Code Encounter Date Provider Facility CPT-71812 Level 3 Est. Patient 14:34:52 CDT Vanessa Hickey MD [facility]-14804 Level 3 Est. Patient 16:27:51 CDT Mima Erazo [facility]-18579 Level 3 Est. Patient 14:39:00 COVER MAKING MACHINE OPERATOR Vanessa Hickey MD [facility]-44287 Level 2 Est. Patient 18:43:34 CDT Mima Erazo [facility] CPT-02403 Level 3 Est. Patient 16:22:09 CDT Cherelleetta Avila [facility] CPT-15796 Level 4 Est. Patient 17:55:14 CDT Mima Erazo [facility] CPT-64524 Level 2 Est. Patient 17:13:21 CDT Alina Castaneda MD PhD [facility]-96436 Level 3 Est. Patient 14:46:15 CDT Vanessa Hickey MD [facility]26179 Level 3 Est. Patient 09:34:56 CDT Alina Castaneda MD PhD [facility]25890 Level 3 Est. Patient 21:40:19 CDT Mima Erazo APRN [facility]-82214 Level 3 Est. Patient 09:26:40 CDT Zainnivia Araceli [facility]-85753 Level 3 Est. Patient 12:36:43 CDT Vanessa Hickey MD [facility]-68438 Level 3 Est. Patient 12:57:49 CDT Vanessa Hickey MD [facility]-46251 Level 3 Est. Patient 00:28:25 CDT Alina Castaneda MD [facility]-08743 Level 2 Est. Patient 12:52:14 CDT Alina Castaneda MD [facility]77065 Level 3 Est. Patient 11:51:18 COVER MAKING MACHINE OPERATOR Alina Castaneda MD [facility]-54068 Level 3 Est. Patient 10:09:22 COVER MAKING MACHINE OPERATOR Alina Castaneda MD [facility]24220 Level 3 Est. Patient 14:36:26 COVER MAKING MACHINE OPERATOR Marvel Charles [facility]-14980 Level 3 Est. Patient 13:34:47 COVER MAKING MACHINE OPERATOR Alina Castaneda MD [facility]-59318 Level 3 Est. Patient 19:52:08 COVER MAKING MACHINE OPERATOR Alina Castaneda MD [facility]-87897 Level 3 Est. Patient 10:01:51 COVER MAKING MACHINE OPERATOR Marvel Charles [facility]-21580 Level 3 Est. Patient 21:54:06 CDT Vanessa Hickey MD [facility]-74348 Level 3 Est. Patient 08:54:46 CDT Alina Castaneda MD [facility]-14646 Level 3 Est. Patient 09:32:11 CDT Marvel Charles [facility]-96868 Level 3 Est. Patient 12:02:49 CDT Alina Castaneda MD [facility]-95687 Level 3 Est. Patient 19:17:33 CDT Alina Castaneda MD [facility]-78714 Level 3 Est. Patient 13:19:10 [facility] CPT-69308 Level 3 Est. Patient 08:20:05 CDT Alina Castaneda MD [facility]-99655 Level 3 Est. Patient 15:17:18 CDT Alina Castaneda MD [facility]-97316 Level 3 Est. Patient 14:25:36 COVER MAKING MACHINE OPERATOR [facility] Level 3 Est. Patient 10:09:15 COVER MAKING MACHINE OPERATOR [facility]15 Level 3 Est. Patient 21:28:43 CDT Alina Castaneda MD [facility]-68337 Level 3 Est. Patient 15:20:11 CDT [facility]32355 Level 4 Est. Patient 19:08:12 CDT Alina Castaneda MD [facility]-30962 Level 3 Est. Patient 15:06:39 CDT Brooksnivia Charles [facility] CPT-43826 Level 4 Est. Patient 17:48:15 CDT Alina Castaneda MD [facility]-03623 Level 3 Est. Patient 14:53:49 CDT Alina Castaneda MD [facility]-41450 Level 3 Est. Patient 09:35:16 CDT Alina Castaneda MD [facility]-19067 Level 3 Est. Patient 12:23:22 CDT Alina Castaneda MD [facility]-77789 Level 3 Est. Patient 16:19:15 CDT Alina Castaneda MD [facility]-93302 Level 3 Est. Patient 21:39:56 COVER MAKING MACHINE OPERATOR Alina Castaneda MD [facility]-17909 Level 4 Est. Patient 14:12:56 COVER MAKING MACHINE OPERATOR Alina Castaneda MD [facility]-28082 Level 2 Est. Patient 15:34:57 COVER MAKING MACHINE OPERATOR Alina Castaneda MD [facility]-41235 Level 3 Est. Patient 12:17:04 COVER MAKING MACHINE OPERATOR Alina Castaneda MD [facility]-76689 Level 3 Est. Patient 09:18:18 COVER MAKING MACHINE OPERATOR [facility]-90638 Level 2 Est. Patient 21:50:24 CDT Alina Castaneda MD [facility]-58889 Level 3 Est. Patient 09:17:28 CDT [facility]-52648 Level 4 Est. Patient 18:54:02 CDT Alina Castaneda MD [facility]-37291 Level 3 Est. Patient 10:47:10 CDT Alina Castaneda MD [facility]-02561 Level 3 Est. Patient 09:22:20 CDT [facility]-16056 Level 3 Est. Patient 16:39:43 CDT [facility]-82979 Level 3 Est. Patient 16:05:16 CDT [facility]06552 Level 3 Est. Patient 00:29:15 CDT Alina Castaneda MD [facility] CPT-40810 Level 3 Est. Patient 10:49:22 COVER MAKING MACHINE OPERATOR [facility] CPT-55490 Level 3 Est. Patient 21:30:19 COVER MAKING MACHINE OPERATOR Alina Castaneda MD [facility] CPT-04677 Level 4 Est. Patient 17:04:11 COVER MAKING MACHINE OPERATOR [facility] CPT-93797 Level 3 Est. Patient 15:34:11 COVER MAKING MACHINE OPERATOR [facility] CPT-94133 Level 2 Est. Patient 12:51:58 COVER MAKING MACHINE OPERATOR Alina Castaneda MD [facility] CPT-16391 Level 3 Est. Patient 13:20:01 COVER MAKING MACHINE OPERATOR Alina Castaneda MD [facility] CPT-27431 Level 3 Est. Patient 09:23:35 CDT Alina Castaneda MD [facility] Procedures Code Procedure Name Date Entry Date Standard Description CPT-TCMM Transitional Care Mgmt-Moderate 10:25:31 CDT CPT-76333 Bladder Scan 14:34:53 CDT CPT-01269 Bladder Scan 14:39:01 COVER MAKING MACHINE OPERATOR CPT-TCMM Transitional Care Mgmt-Moderate 10:30:19 COVER MAKING MACHINE OPERATOR CPT-21177 Bladder Scan 12:36:44 CDT CPT-46049 Bladder Scan 21:54:06 CDT CPT-G0008 Administration of Influenza Virus Vaccine 13:05:26 CDT CPT-78579 Fluzone Quadrivalent Intramuscular Suspension 0.5 ML 13: 05:26 CDT CPT-00539 Administration single or combination vaccine inc oral 11 :49:51 CDT CPT-45101 Pneumovax 11:49:51 CDT CPT-39016 Ribs unilateral 2V 12:37:22 COVER MAKING MACHINE OPERATOR CPT-75439 Chest 2V Frontal and Lat 17:15:26 CDT CPT-36071 Abx/Therapy Injection 18:54:02 CDT CPT-J0696 Rocephin 1000 mg (Ceftriaxone) 16:00:32 CDT CPT-08443 Chest 2V Frontal and Lat 15:26:45 CDT CPT-85170 Chest 2V Frontal and Lat 10:23:27 CDT CPT-42742 Venipuncture Draw Fee 10:11:00 CDT CPT-49109 Administration single or combination vaccine inc oral 11 :56:38 CDT CPT-01605 Influenza split virus > age 3 11:56:38 CDT CPT-01539 Venipuncture Draw Fee 08:49:54 COVER MAKING MACHINE OPERATOR CPT-34765 EKG Trac and Interp 17:54:19 COVER MAKING MACHINE OPERATOR
--- OUTSIDE RECORDS SUMMARY | 2018-07-02 17:37 | XMS REPORT | Clinical Summary ---
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 Erazo PRINTER ASSISTANT Benign paroxysmal positional vertigo Vertigo, benign paroxysmal position 386.11 Inactive Mima Erazo PRINTER ASSISTANT Benign paroxysmal positional vertigo High-risk sexual behavior V69.2 Active Alina Castaneda MD PhD High-risk sexual behavior Erectile dysfunction 302.72 Active Alina Castaneda MD PhD Psychosexual dysfunction with inhibited sexual excitement Constipation 564.00 Active Alina Castaneda MD PhD Constipation, unspecified Skin lesion 709.9 Active Alina Castaneda MD PhD Unspecified disorder of skin and subcutaneous tissue Malaise and fatigue 780.79 Active Cherelle Speaks PRINTER ASSISTANT Other malaise and fatigue Diarrhea 787.91 Active Cherelle Speaks PRINTER ASSISTANT Diarrhea PHARYNGITIS 462 Active Cherelle Speaks PRINTER ASSISTANT Acute pharyngitis Colitis 558.9 Active Mima Erazo PRINTER ASSISTANT Other and unspecified noninfectious gastroenteritis and colitis WOUND, OPEN, NOSE ICD-873.20 Inactive Alina Castaneda MD PhD DIABETES, TYPE 2 ICD-250.00 Inactive Alina Castaneda MD PhD HYPERTENSION ICD-401.9 Inactive Alina Castaneda MD PhD URI ICD-465.9 Inactive Alina Castaneda MD PhD CHEST PAIN ICD-786.50 Inactive Alina Castaneda MD PhD FH STROKE ICD-V17.1 Inactive Marvel Charles DIE FORGER FATIGUE ICD-780.79 Inactive Alina Castaneda MD PhD [...] and floor of mouth, uncomplicated ICD-873.64 Inactive Ailna Castaneda MD PhD Chest pain, atypical ICD-786.59 Inactive Alina Castaneda MD PhD Chest pain, atypical ICD-786.59 Inactive Alina Castaneda MD PhD Medication List Medication Instructions Start Date Stop Date Generic Name NDC Status Provider Patient Instruction COLACE 100 MG CAPS 1 pill by mouth twice daily, for constipation DOCUSATE SODIUM 59832405727 No Longer Active Mima Erazo APRN Active FLONASE ALLERGY RELIEF 50 MCG/ACT NASAL SUSP One spray each nostril BID x 1 week then daily FLUTICASONE PROPIONATE 90561946659 Active Mimacecily Erazo APRN Active BD PEN NEEDLE MINI U/F 31G X 5 MM MISC 4 a day INSULIN PEN NEEDLE 64750314259 Active Mallashondaeh Ziglari DIE FORGER Active AMITIZA 24 MCG ORAL CAPS Take one capsule BID for constipation LUBIPROSTONE 12081694486 Active Mimacecily Erazo APRN Active LEVEMIR FLEXTOUCH 100 UNIT/ML SC SOPN 75 units SQ each evening, for diabetes INSULIN DETEMIR 46976170094 Active Mima Erazo APRN Active TRUEPLUS LANCETS 30G MISC 3 a day LANCETS 87015813759 Active Mallashondaeh Ziglari DIE FORGER Active TOLTERODINE TARTRATE 2 MG TABS 1 pill twice daily, for bladder TOLTERODINE TARTRATE 29957974291 No Longer Active Vanessa Hickey MD Active AMITIZA 24 MCG ORAL CAPS Take one capsule BID for constipation. LUBIPROSTONE 07531547295 No Longer Active Vanessa Hickey MD Active LOMOTIL 2.5-0.025 MG ORAL TABS take 1-2 tabs PO after each stool, no more than 8 in 24 hours DIPHENOXYLATE-ATROPINE 69605627031 Active Grace Nascimento RMA Active FLUVOXAMINE MALEATE 100 MG ORAL TABS take one tab every AM et HS, and take 1/ 2 tab at noon FLUVOXAMINE MALEATE 37378033675 Active Gracekailee Nascimento RMA Active METOPROLOL SUCCINATE 100 MG [id number] 1 by mouth daily for blood pressure METOPROLOL SUCCINATE 98542577760 No Longer Active Grace Nascimento RMA Active METFORMIN HCL ER 500 MG [id number]-APQ Take three tablets by mouth everyday METFORMIN HCL 17009728774 No Longer Active Grace Nascimento RMA Active LOVAZA 1 GM CAPS 4 daily (for triglycerides) OMEGA-3- ACID ETHYL ESTERS 61451731559 No Longer Active Grace Nascimento RMA Active TRAZODONE HCL 100 MG ORAL TABS 1 tab by mouth for sleep TRAZODONE HCL 09800897612 No Longer Active Grace Nascimento RMA Active NOVOFINE 32G X 6 MM MISC use one four times per day INSULIN PEN NEEDLE 69291630627 No Longer Active Grace Nascimento RMA Active BACTROBAN 2 % CREAM Apply to affected area BID for up to 10 days MUPIROCIN CALCIUM 14192530489 No Longer Active Grace Nascimento RMA Active ZOFRAN 4 MG TABS 1 po q4hr PRN Nausea ONDANSETRON HCL 17502161114 Active Salina Han RMA Active KEFLEX 500 MG CAP 1 po BID x 7 days CEPHALEXIN 58373333306 No Longer Active Cherelle Avila APRN Active FLUVOXAMINE MALEATE 100 MG TABS Take one (1) tablet by mouth am, 1/2 at noon FLUVOXAMINE MALEATE 88109281599 No Longer Active Mima Erazo PRINTER ASSISTANT Active CORICIDIN HBP CONGESTION/COUGH 10-200 MG ORAL CAPS Take as directed on box as needed for cold/flu symptoms DEXTROMETHORPHAN-GUAIFENESIN 00369063879 Active Cherelle Speaks PRINTER ASSISTANT Active OMEGA-3 300 MG ORAL CAPS 4 caps by mouth daily OMEGA-3 FATTY ACIDS 16746775137 Active Mima Erazo PRINTER ASSISTANT Active FLUVOXAMINE MALEATE 100 MG ORAL TABS Take 1/2 tab at noon FLUVOXAMINE MALEATE 08210577797 No Longer Active Cherelle Speaks PRINTER ASSISTANT Active [facility] E[facility] DROPS 0.4-0.3 % OPHTH SOLN POLYETHYL GLYCOL-PROPYL GLYCOL 36206977745 Active Mima Erazo PRINTER ASSISTANT Active CLONAZEPAM 1 MG TABS 1/2 pill by mouth three times daily CLONAZEPAM 35980917023 Active Mason Loredo MD Active MIRALAX POWD 17g by mouth daily, for constipation POLYETHYLENE GLYCOL 3350 50779810247 Active Alina Castaneda MD PhD Active HYDROCODONE-ACETAMINOPHEN 5-325 MG TABS 2 tabs by mouth three times daily for pain HYDROCODONE-ACETAMINOPHEN 69826200426 Active Mima Erazo PRINTER ASSISTANT Active HUMALOG KWIKPEN 100 UNIT/ML SC SOPN 20 units with breakfast, 10 units with lunch, 10 units with dinner, for diabetes INSULIN LISPRO (HUMAN ) 25904394489 Active Alina Castaneda MD PhD Active LATUDA 120 MG ORAL TABS 1 pill by mouth nightly LURASIDONE HCL 06674137238 Active Alina Castaneda MD PhD Active TRUETEST TEST STRP check blood sugars 3x/day GLUCOSE BLOOD 60337251142 Active Marvel Charles DIE FORGER Active ACCU-CHEK ROSA UZMA Use device to check blood sugars BLOOD GLUCOSE MONITORING SUPPL 95901792806 No Longer Active Marvel Charles DIE FORGER Active ACCU-CHEK ROSA INVITR STRP use strips with device to check blood sugars 3 times daily GLUCOSE BLOOD 77512081760 No Longer Active Marvel MARROQUIN Active VERAPAMIL HCL ER 180 MG ORAL CR-TABS 1 pill by mouth twice daily, for migraine prevention VERAPAMIL HCL 43913305575 Active CRYSTAL Rodrigues Active CYCLOBENZAPRINE HCL 10 MG TABS 1 tablet by mouth three times daily, scheduled CYCLOBENZAPRINE HCL 39733568125 No Longer Active Alina Castaneda MD PhD Active HUMALOG 100 UNIT/ML SOLN Take 20 units with breakfast, 10u with lunch and suppetr. INSULIN LISPRO (HUMAN) 44222640905 No Longer Active Alina Castaneda MD PhD Active TRUETEST TEST STRP check sugars 4x/day GLUCOSE BLOOD 41352393251 No Longer Active Alina Castaneda MD PhD Active MORPHINE SULFATE 30 MG TABS 1 pill by mouth twice daily, for pain MORPHINE SULFATE 12353892240 Active Mason Loredo MD Active ACYCLOVIR 400 MG ORAL TABS 1 pill three times daily x 5 days, for cold sore outbreak ACYCLOVIR 91385579651 No Longer Active Alina Castaneda MD PhD Active PENICILLIN V POTASSIUM 500 MG TABS 1 pill by mouth three times daily PENICILLIN V POTASSIUM 92928066979 No Longer Active Alina Castaneda MD PhD Active UROXATRAL 10 MG [id number] Take 1 tablet by mouth daily ALFUZOSIN HCL 64227089622 No Longer Active Alina Castaneda MD PhD Active THIOTHIXENE 5 MG CAPS by mouth twice a day THIOTHIXENE 92059390825 No Longer Active Alina Castaneda MD PhD Active ZYPREXA 7.5 MG TABS 1 at HS OLANZAPINE 42456891832 No Longer Active Alina Castaneda MD PhD Active BD INSULIN SYRINGE 28G X 1/2" 1 ML MISC 1 four times per day INSULIN SYRINGE-NEEDLE U-100 59819356121 Active Marvel MARROQUIN Active DETROL LA 4 MG [id number]-PHM Take 1 tablet by mouth daily TOLTERODINE TARTRATE 14108120086 No Longer Active Alina Castaneda MD PhD Active TERESE CONTOUR TEST STRP monitor blood sugars 3x/day GLUCOSE BLOOD 26450864534 No Longer Active Alina Castaneda MD PhD Active EQL TRUETEST TEST STRP Test blood sugar TID GLUCOSE BLOOD 50727520288 No Longer Active Alina Castaneda MD PhD Active FLUTICASONE PROPIONATE 50 MCG/ACT SUSP 2 sprays each nostril qDay x 30 days FLUTICASONE PROPIONATE 25840524389 No Longer Active Alina Castaneda MD PhD Active IBUPROFEN 200 MG TABS 1 Q 6 hr. PRN IBUPROFEN 12938084712 No Longer Active Alina Castaneda MD PhD Active NIACIN ER 500 MG CR-TABS 4 qHS (for triglycerides) NIACIN 25036634906 No Longer Active Alina Castaneda MD PhD Active ALFUZOSIN HCL ER 10 MG [id number] 1 tablet daily ALFUZOSIN HCL 34614652971 Active CRYSTAL Rodrigues Active SAPHRIS 5 MG SUBL by mouth twice a day ASENAPINE MALEATE 15229750526 No Longer Active Marvel MARROQUIN Active ACETAMINOPHEN 500 MG TABS 2 Q 6 hr. PRN ACETAMINOPHEN 30020268771 No Longer Active Marvel MARROQUIN Active ORPHENADRINE CITRATE ER 100 MG [id number]-NNC 1 every 12 hr. as needed ORPHENADRINE CITRATE 36320961209 No Longer Active Alina Castaneda MD PhD Active NIACIN CR 500 MG CR-TABS 2 qHS NIACIN 70447571014 No Longer Active Alina Castaneda MD PhD Active AMOXICILLIN 500 MG CAPS 2 po BID x 10 days AMOXICILLIN 47001740907 No Longer Active Alina Castaneda MD PhD Active HYDROCODONE-ACETAMINOPHEN 7.5-325 MG TABS 1 four times a day as needed for pain HYDROCODONE-ACETAMINOPHEN 51363766098 No Longer Active Alina Castaneda MD PhD Active DOXEPIN HCL 10 MG CAPS Take 1 tablet by mouth daily DOXEPIN HCL 73509980691 No Longer Active Salina Han A Active NAVANE 10 MG CAPS 1/2 tablet twice a day THIOTHIXENE No Longer Active Salina Han A Active CYCLOBENZAPRINE HCL 10 MG TABS 1/2 tablet by mouth every 8 hours as needed for muscle spasms CYCLOBENZAPRINE HCL 09762632541 No Longer Active Alina Castaneda MD PhD Active BACTROBAN 2 % CREAM apply to ear and nose twice daily MUPIROCIN CALCIUM 15246165397 No Longer Active Alina Castaneda MD PhD Active HYDROCODONE-ACETAMINOPHEN 5-325 MG TABS take one tablet by mouth every four hours as needed for pain HYDROCODONE-ACETAMINOPHEN 34428318873 No Longer Active Alina Castaneda MD PhD Active ZOLPIDEM TARTRATE 10 MG TABS take at bedtime ZOLPIDEM TARTRATE 39209946784 Active Alina Castaneda MD PhD Active ZYPREXA 5 MG TABS take one tablet by mouth every evening OLANZAPINE 33967942540 No Longer Active Alina Csataneda MD PhD Active ALBUTEROL SULFATE 0.083 % NEBU SOLN one vial per nebulizer TID and PRN cough/ soa ALBUTEROL SULFATE 35539843192 No Longer Active Alina Castaneda MD PhD Active GUAIFENESIN 600 MG [id number] 1 tablet by mouth twice daily if needed for cough GUAIFENESIN 14543186651 No Longer Active Marvel MARROQUIN Active AZITHROMYCIN 500 MG SOLR 1 po q day AZITHROMYCIN 56466722717 No Longer Active Alina Castaneda MD PhD Active PROMETHAZINE-CODEINE 6.25-10 MG/5ML SYRP 1 tsp po q 6 hours prn cough PROMETHAZINE-CODEINE 97883931213 No Longer Active Alina Castaneda MD PhD Active CEFDINIR 300 MG CAPS by mouth twice a day CEFDINIR 97113076317 No Longer Active Alina Castaneda MD PhD Active METFORMIN HCL 500 MG [id number] Take 3 tablets by mouth everyday METFORMIN HCL 58810659996 No Longer Active Alina Castaneda MD PhD Active LEVEMIR 100 UNIT/ML SOLN 90 units SQ qHS INSULIN DETEMIR 94081849057 No Longer Active Marvel MARROQUIN Active TOPROL XL 100 MG [id number]-NWO 1 @ HS METOPROLOL SUCCINATE 84287920180 No Longer Active Marvel MARROQUIN Active ALLOPURINOL 300 MG TABS Take one by mouth daily ALLOPURINOL 88259473187 Active Mima Erazo PRINTER ASSISTANT Active ZYPREXA 10 MG TABS Take one by mouth daily OLANZAPINE 31663631442 No Longer Active Alina Castaneda MD PhD Active NOVOLOG 100 UNIT/ML SOLN 40 units with every meal INSULIN ASPART 55912549379 No Longer Active Alina Castaneda MD PhD Active VERAPAMIL HCL CR 120 MG TAB CR 1 qPM VERAPAMIL HCL 78215818577 No Longer Active Salina ROJAS Active ZYPREXA 15 MG TABS Take 1 tablet by mouth daily OLANZAPINE 30930877843 No Longer Active Marvel MARROQUIN Active LISINOPRIL 20 MG TABS 1 BID LISINOPRIL 48947490298 Active Alina Castaneda MD PhD Active ALBUTEROL SULFATE (2.5 MG/3ML) 0.083% NEBU 1 neb tid and prn cough ALBUTEROL SULFATE 27438152764 No Longer Active Alina Castaneda MD PhD Active TRAVATAN Z 0.004 % SOLN 1 gtt each eye daily TRAVOPROST 34793360886 Active CRYSTAL Suarez Active LANTUS 100 UNIT/ML SOLN 60 units sq q hs INSULIN GLARGINE 21889216968 No Longer Active CRYSTAL Suarez Active ALBUTEROL SULFATE (2.5 MG/3ML) 0.083% NEBU 1 neb tid and prn cough ALBUTEROL SULFATE (2.5 MG/3ML) 0.083% NEBU 630526 ALBUTEROL SULFATE Inactive ZYPREXA 15 MG TABS Take 1 tablet by mouth daily ZYPREXA 15 MG TABS 115874 OLANZAPINE Inactive VERAPAMIL HCL CR 120 MG TAB CR 1 qPM VERAPAMIL HCL CR 120 MG TAB CR VERAPAMIL HCL Inactive ZYPREXA 10 MG TABS Take one by mouth daily ZYPREXA 10 MG TABS 928620 OLANZAPINE Inactive TOPROL XL 100 MG [id number] 1 @ HS TOPROL XL 100 MG HC71O-OTF METOPROLOL SUCCINATE Inactive LEVEMIR 100 UNIT/ML SOLN 90 units SQ qHS LEVEMIR 100 UNIT/ML SOLN INSULIN DETEMIR Inactive PROMETHAZINE-CODEINE 6.25-10 MG/5ML SYRP 1 tsp po q 6 hours prn cough PROMETHAZINE-CODEINE 6.25-10 MG/5ML SYRP 424044 PROMETHAZINE- CODEINE Inactive GUAIFENESIN 600 MG FI64W-SGO 1 tablet by mouth twice daily if needed for cough GUAIFENESIN 600 MG [id number] GUAIFENESIN Inactive ALBUTEROL SULFATE 0.083 % NEBU SOLN one vial per nebulizer TID and PRN cough/ soa ALBUTEROL SULFATE 0.083 % NEBU SOLN 040354 ALBUTEROL SULFATE Inactive ZYPREXA 5 MG TABS take one tablet by mouth every evening ZYPREXA 5 MG TABS 878625 OLANZAPINE Inactive HYDROCODONE-ACETAMINOPHEN 5-325 MG TABS take one tablet by mouth every four hours as needed for pain HYDROCODONE-ACETAMINOPHEN 5-325 MG TABS 165466 HYDROCODONE-ACETAMINOPHEN Inactive BACTROBAN 2 % CREAM apply to ear and nose twice daily BACTROBAN 2 % CREAM 047759 MUPIROCIN CALCIUM Inactive CYCLOBENZAPRINE HCL 10 MG TABS 1/2 tablet by mouth every 8 hours as needed for muscle spasms CYCLOBENZAPRINE HCL 10 MG TABS 983979 CYCLOBENZAPRINE HCL Inactive NAVANE 10 MG CAPS 1/2 tablet twice a day NAVANE 10 MG CAPS THIOTHIXENE Inactive DOXEPIN HCL 10 MG CAPS Take 1 tablet by mouth daily DOXEPIN HCL 10 MG CAPS 1950573 DOXEPIN HCL Inactive HYDROCODONE-ACETAMINOPHEN 7.5-325 MG TABS 1 four times a day as needed for pain HYDROCODONE-ACETAMINOPHEN 7.5-325 MG TABS 192629 HYDROCODONE-ACETAMINOPHEN Inactive NIACIN CR 500 MG CR-TABS 2 qHS NIACIN CR 500 MG CR- TABS NIACIN Inactive ORPHENADRINE CITRATE ER 100 MG [id number] 1 every 12 hr. as needed ORPHENADRINE CITRATE ER 100 MG NR73N-MKB ORPHENADRINE CITRATE Inactive ACETAMINOPHEN 500 MG TABS 2 Q 6 hr. PRN ACETAMINOPHEN 500 MG TABS 248740 ACETAMINOPHEN Inactive SAPHRIS 5 MG SUBL by mouth twice a day SAPHRIS 5 MG SUBL ASENAPINE MALEATE Inactive NIACIN ER 500 MG CR-TABS 4 qHS (for triglycerides) NIACIN ER 500 MG CR-TABS NIACIN Inactive IBUPROFEN 200 MG TABS 1 Q 6 hr. PRN IBUPROFEN 200 MG TABS 842963 IBUPROFEN Inactive FLUTICASONE PROPIONATE 50 MCG/ACT SUSP 2 sprays each nostril qDay x 30 days FLUTICASONE PROPIONATE 50 MCG/ACT SUSP 797172 FLUTICASONE PROPIONATE Inactive EQL TRUETEST TEST STRP Test blood sugar TID EQL TRUETEST TEST STRP GLUCOSE BLOOD Inactive TERESE CONTOUR TEST STRP monitor blood sugars 3x/day TERESE CONTOUR TEST STRP GLUCOSE BLOOD Inactive DETROL LA 4 MG [id number]-LBV Take 1 tablet by mouth daily DETROL LA 4 MG MV60F-QYR TOLTERODINE TARTRATE Inactive ZYPREXA 7.5 MG TABS 1 at HS ZYPREXA 7.5 MG TABS 294228 OLANZAPINE Inactive THIOTHIXENE 5 MG CAPS by mouth twice a day THIOTHIXENE 5 MG CAPS 633527 THIOTHIXENE Inactive UROXATRAL 10 MG HR02R-WPU Take 1 tablet by mouth daily UROXATRAL 10 MG KR31N-EVQ ALFUZOSIN HCL Inactive ACYCLOVIR 400 MG ORAL TABS 1 pill three times daily x 5 days, for cold sore outbreak ACYCLOVIR 400 MG ORAL TABS 087548 ACYCLOVIR Inactive TRUETEST TEST STRP check sugars 4x/day TRUETEST TEST STRP GLUCOSE BLOOD Inactive HUMALOG 100 UNIT/ML SOLN Take 20 units with breakfast, 10u with lunch and suppetr. HUMALOG 100 UNIT/ML SOLN INSULIN LISPRO ( HUMAN) Inactive CYCLOBENZAPRINE HCL 10 MG TABS 1 tablet by mouth three times daily, scheduled CYCLOBENZAPRINE HCL 10 MG TABS 778256 CYCLOBENZAPRINE HCL Inactive ACCU-CHEK ROSA INVITR STRP use strips with device to check blood sugars 3 times daily ACCU-CHEK ROSA INVITR STRP GLUCOSE BLOOD Inactive ACCU-CHEK ROSA UZMA Use device to check blood sugars ACCU-CHEK ROSA UZMA BLOOD GLUCOSE MONITORING SUPPL Inactive FLUVOXAMINE MALEATE 100 MG ORAL TABS Take 1/2 tab at noon FLUVOXAMINE MALEATE 100 MG ORAL TABS 871794 FLUVOXAMINE MALEATE Inactive FLUVOXAMINE MALEATE 100 MG TABS Take one (1) tablet by mouth am, 1/2 at noon FLUVOXAMINE MALEATE 100 MG TABS 555754 FLUVOXAMINE MALEATE Inactive BACTROBAN 2 % CREAM Apply to affected area BID for up to 10 days BACTROBAN 2 % CREAM 069518 MUPIROCIN CALCIUM Inactive NOVOFINE 32G X 6 MM MISC use one four times per day NOVOFINE 32G X 6 MM MISC INSULIN PEN NEEDLE Inactive TRAZODONE HCL 100 MG ORAL TABS 1 tab by mouth for sleep TRAZODONE HCL 100 MG ORAL TABS 384002 TRAZODONE HCL Inactive LOVAZA 1 GM CAPS 4 daily (for triglycerides) LOVAZA 1 GM CAPS 623994 [id number]-[id number] ETHYL ESTERS Inactive METFORMIN HCL ER 500 MG [id number]-KEG Take three tablets by mouth everyday METFORMIN HCL ER 500 MG [id number]-DJL METFORMIN HCL Inactive METOPROLOL SUCCINATE 100 MG CR48M-SDI 1 by mouth daily for blood pressure METOPROLOL SUCCINATE 100 MG LA08K-BYK METOPROLOL SUCCINATE Inactive AMITIZA 24 MCG ORAL CAPS Take one capsule BID for constipation. AMITIZA 24 MCG ORAL CAPS LUBIPROSTONE Inactive TOLTERODINE TARTRATE 2 MG TABS 1 pill twice daily, for bladder TOLTERODINE TARTRATE 2 MG TABS 846025 TOLTERODINE TARTRATE Inactive COLACE 100 MG CAPS 1 pill by mouth twice daily, for constipation COLACE 100 MG CAPS 5013245 DOCUSATE SODIUM Inactive CEFDINIR 300 MG CAPS by mouth twice a day CEFDINIR 300 MG CAPS 304748 CEFDINIR Inactive AZITHROMYCIN 500 MG SOLR 1 po q day AZITHROMYCIN 500 MG SOLR 53901497192 AZITHROMYCIN Inactive AMOXICILLIN 500 MG CAPS 2 po BID x 10 days AMOXICILLIN 500 MG CAPS 862667 AMOXICILLIN Inactive PENICILLIN V POTASSIUM 500 MG TABS 1 pill by mouth three times daily PENICILLIN V POTASSIUM 500 MG TABS 373193 PENICILLIN V POTASSIUM Inactive KEFLEX 500 MG CAP 1 po BID x 7 days KEFLEX 500 MG CAP 336398 CEPHALEXIN Inactive Immunizations Vaccine Administration Date Value [...] Fluvirin, Fluarix, Agriflu(>=18 yo)) Fluzone (>3 yrs.) [HCS301] Influenza, seasonal, injectable pneumococcal immunization administered Pneumovax [...] Panel - Chemistry sodium, serum 137 mmol/L 862-188 2969/10/12 potassium, serum 4.8 mmol/L 3.5-5.2 chloride, serum 102 mmol/L 98-107 carbon dioxide, venous blood 27.6 mmol/L 21.0-32.0 blood glucose 168 mg/dL 65-110 calcium, serum 9.0 mg/dL 8.5-10.1 urea nitrogen, blood 15 mg/dL 7-18 creatinine, serum 1.04 mg/dL 0.55-1.30 sodium, serum 138 mmol/L 841-648 8525/11/11 potassium, serum 4.7 mmol/L 3.5-5.2 chloride, serum [...] % 11.6-14.8 platelet count 240 10^3/MM^3 10*3/mm3 620-451 1213/11/11 leukocyte count, blood 9.6 10^3/MM^3 10*3/mm3 4.6-10.2 [...] Acid - Chemistry cholesterol, serum 187 mg/dL 793-936 3591/06/14 triglyceride, serum, fasting 246 mg/dL 30-200 HDL [...] 4.7 mg/dL 2.6-7.2 cholesterol, serum 142 mg/dL 850-511 8219/06/26 triglyceride, serum, fasting 272 mg/dL 30-200 HDL [...] negative Encounters Code Encounter Date Provider Facility CPT-71820 Level 3 Est. Patient 16:27:51 CDT Mima Erazo [facility] CPT-01333 Level 3 Est. Patient 14:39:00 TOLL TRANSMISSION WORKER Vanessa Hickey MD [facility]-11511 Level 2 Est. Patient 18:43:34 CDT Mima Erazo [facility] CPT-01513 Level 3 Est. Patient 16:22:09 CDT Cherelle Avila [facility] CPT-60857 Level 4 Est. Patient 17:55:14 CDT Mima Erazo [facility] CPT-96784 Level 2 Est. Patient 17:13:21 CDT Alina Castaneda MD PhD [facility] CPT-03789 Level 3 Est. Patient 14:46:15 CDT Vanessa Hickey MD [facility]-50859 Level 3 Est. Patient 09:34:56 CDT Alina Castaneda MD PhD [facility]17128 Level 3 Est. Patient 21:40:19 CDT Mima Erazo [facility] CPT-71476 Level 3 Est. Patient 09:26:40 CDT Marvel Charles [facility]-56272 Level 3 Est. Patient 12:36:43 CDT Vanessa Hickey MD [facility]-42425 Level 3 Est. Patient 12:57:49 CDT Vanessa Hickey MD [facility]-58189 Level 3 Est. Patient 00:28:25 CDT Alina Castaneda MD [facility]12255 Level 2 Est. Patient 12:52:14 CDT Alina Castaneda MD [facility]46181 Level 3 Est. Patient 11:51:18 TOLL TRANSMISSION WORKER Alina Castaneda MD [facility]66307 Level 3 Est. Patient 10:09:22 TOLL TRANSMISSION WORKER Alina Castaneda MD [facility]90172 Level 3 Est. Patient 14:36:26 TOLL TRANSMISSION WORKER Marvel Charles [facility]-17275 Level 3 Est. Patient 13:34:47 TOLL TRANSMISSION WORKER Alina Castaneda MD [facility]65265 Level 3 Est. Patient 19:52:08 TOLL TRANSMISSION WORKER Alina Castaneda MD [facility]48897 Level 3 Est. Patient 10:01:51 TOLL TRANSMISSION WORKER Marvel Charles [facility]-41861 Level 3 Est. Patient 21:54:06 CDT Vanessa Hiceky MD [facility]-06353 Level 3 Est. Patient 08:54:46 CDT Alina Castaneda MD [facility]27110 Level 3 Est. Patient 09:32:11 CDT Marvel Charles [facility]12158 Level 3 Est. Patient 12:02:49 CDT Alina Castaneda MD [facility]31188 Level 3 Est. Patient 19:17:33 CDT Alina Castaneda MD [facility]-41022 Level 3 Est. Patient 13:19:10 CDT Marvel Gurdeepajayestela [facility]-40052 Level 3 Est. Patient 08:20:05 CDT Alina Castaneda MD [facility]-72335 Level 3 Est. Patient 15:17:18 CDT Alina Castaneda MD [facility]-58097 Level 3 Est. Patient 14:25:36 [facility]-15979 Level 3 Est. Patient 10:09:15 [facility]LL TRANSMISSION [facility] Level [facility] Est. Patient 21:28:43 CDT Alina Castaneda MD [facility]-79345 Level 3 Est. Patient 15:20:11 [facility]-46863 Level 4 Est. Patient 19:08:12 CDT Alina Castaneda MD [facility]-27106 Level 3 Est. Patient 15:06:39 CDT Marvel Araceli [facility]-85121 Level 4 Est. Patient 17:48:15 CDT Alina Castaneda MD [facility]-94534 Level 3 Est. Patient 14:53:49 CDT Alina Castaneda MD [facility]-61907 Level 3 Est. Patient 09:35:16 CDT Alina Castaneda MD [facility]-15139 Level 3 Est. Patient 12:23:22 CDT Alina Castaneda MD [facility]-45253 Level 3 Est. Patient 16:19:15 CDT Alina Castaneda MD [facility]-64922 Level 3 Est. Patient 21:39:56 TOLL TRANSMISSION WORKER Alina Castaneda MD [facility]-55682 Level 4 Est. Patient 14:12:56 TOLL TRANSMISSION WORKER Alina Castaneda MD [facility]-30875 Level 2 Est. Patient 15:34:57 TOLL TRANSMISSION WORKER Alina Castaneda MD [facility]-79686 Level 3 Est. Patient 12:17:04 TOLL TRANSMISSION WORKER Alina Castaneda MD [facility]-43445 Level 3 Est. Patient 09:18:18 [facility]-39232 Level 2 Est. Patient 21:50:24 CDT Alina Castaneda MD [facility]-77550 Level 3 Est. Patient 09:17:28 CDT Marvel Charles [facility]-17801 Level 4 Est. Patient 18:54:02 CDT Alina Castaneda MD [facility]-00745 Level 3 Est. Patient 10:47:10 CDT Alina Castaneda MD [facility]-53387 Level 3 Est. Patient 09:22:20 CDT Marvel Charles [facility]-79154 Level 3 Est. Patient 16:39:43 CDT Marvel Charles [facility]-33352 Level 3 Est. Patient 16:05:16 CDT Alina Castaneda MD [facility] [facility]-[address] Level 3 Est. Patient 00:29:15 CDT Alina Castaneda MD PhD [facility] CPT-72663 Level 3 Est. Patient 10:49:22 TOLL TRANSMISSION WORKER [facility] CPT-85851 Level 3 Est. Patient 21:30:19 TOLL TRANSMISSION WORKER Alina Castaneda MD PhD [facility] CPT-42480 Level 4 Est. Patient 17:04:11 TOLL TRANSMISSION WORKER [facility]est[facility] CPT-84825 Level 3 Est. Patient 15:34:11 [facility]LL TRANSMISSION WORKER [facility] CPT-01032 Level 2 Est. Patient 12:51:58 TOLL TRANSMISSION WORKER Alina Castaneda MD [facility] CPT-54388 Level 3 Est. Patient 13:20:01 TOLL TRANSMISSION WORKER Alina Castaneda MD PhD [facility] CPT-69453 Level 3 Est. Patient 09:23:35 CDT Alina Castaneda MD PhD [facility] Procedures Code Procedure Name Date Entry Date Standard Description CPT-99077 Bladder Scan 14:39:01 TOLL TRANSMISSION WORKER CPT-TCMM Transitional Care Mgmt-Moderate 10:30:19 TOLL TRANSMISSION WORKER CPT-89795 Bladder Scan 12:36:44 CDT CPT-25805 Bladder Scan 21:54:06 CDT CPT-G0008 Administration of Influenza Virus Vaccine 13:05:26 CDT CPT-23056 Fluzone Quadrivalent Intramuscular Suspension 0.5 ML 13: 05:26 CDT CPT-23524 Administration single or combination vaccine inc oral 11 :49:51 CDT CPT-00516 Pneumovax 11:49:51 CDT CPT-36915 Ribs unilateral 2V 12:37:22 TOLL TRANSMISSION WORKER CPT-48911 Chest 2V Frontal and Lat 17:15:26 CDT CPT-86128 Abx/Therapy Injection 18:54:02 CDT CPT-J0696 Rocephin 1000 mg (Ceftriaxone) 16:00:32 CDT CPT-55558 Chest 2V Frontal and Lat 15:26:45 CDT CPT-66233 Chest 2V Frontal and Lat 10:23:27 CDT CPT-01766 Venipuncture Draw Fee 10:11:00 CDT CPT-93713 Administration single or combination vaccine inc oral 11 :56:38 CDT CPT-02941 Influenza split virus > age 3 11:56:38 CDT CPT-63838 Venipuncture Draw Fee 08:49:54 TOLL TRANSMISSION WORKER CPT-51027 EKG Trac and Interp 17:54:19 TOLL TRANSMISSION WORKER
--- OUTSIDE RECORDS SUMMARY | 2018-07-02 17:39 | XMS REPORT | Clinical Summary ---
[...] 10u lunch and supper INSULIN LISPRO (HUMAN) 75792824934 Active Marvel Araceli MARROQUIN Active LATUDA 120 MG ORAL TABS 1 pill by mouth nightly LURASIDONE HCL 16614110884 Active Alina Castaneda MD PhD Active COLACE 100 MG CAPS 1 pill by mouth twice daily, for constipation DOCUSATE SODIUM 39273028082 Active Alina Castaneda MD PhD Active TRUETEST TEST STRP check blood sugars 3x/day GLUCOSE BLOOD 63163526796 Active Brookslashondanivia 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 FURNITURE UPHOLSTERER APPRENTICE Active ACCU-CHEK ROSA UZMA Use device to check blood sugars BLOOD GLUCOSE MONITORING SUPPL 49803103471 No Longer Active Marvel 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 FURNITURE UPHOLSTERER APPRENTICE Active ACCU-CHEK ROSA INVITR STRP use strips with device to check blood sugars 3 times daily GLUCOSE BLOOD 14089536176 No Longer Active Brooksnivia Araceli MENDOZAP Active VERAPAMIL HCL ER 180 MG ORAL CR-TABS 1 pill by mouth twice daily, for migraine prevention VERAPAMIL HCL 76818833694 Active Alina Castaneda MD PhD Active CYCLOBENZAPRINE HCL 10 MG TABS 1 tablet by mouth three times daily, scheduled CYCLOBENZAPRINE HCL 45938111497 No Longer Active Alina Castaneda MD PhD Active HUMALOG 100 UNIT/ML SOLN Take 20 units with breakfast, 10u with lunch and suppetr. INSULIN LISPRO (HUMAN) 17860906298 No Longer Active Alina Castaneda MD PhD Active TRUETEST TEST STRP check sugars 4x/day GLUCOSE BLOOD 19678476017 No Longer Active Alina Castaneda MD PhD Active MORPHINE SULFATE 30 MG TABS 1 pill by mouth twice daily, for pain MORPHINE SULFATE 29896212906 Active Alina Castaneda MD PhD Active ACYCLOVIR 400 MG ORAL TABS 1 pill three times daily x 5 days, for cold sore outbreak ACYCLOVIR 46282115564 No Longer Active Alina Castaneda MD PhD Active PENICILLIN V POTASSIUM 500 MG TABS 1 pill by mouth three times daily PENICILLIN V POTASSIUM 50894693142 No Longer Active Alina Castaneda MD PhD Active UROXATRAL 10 MG [id number] Take 1 tablet by mouth daily ALFUZOSIN HCL 27270658340 No Longer Active Alina Castaneda MD PhD Active THIOTHIXENE 5 MG CAPS by mouth twice a day THIOTHIXENE 81815335471 No Longer Active Alina Castaneda MD PhD Active ZYPREXA 7.5 MG TABS 1 at HS OLANZAPINE 35925303880 No Longer Active Alina Castaneda MD PhD Active LEVEMIR 100 UNIT/ML SOLN Take 70 u at 7-8pm INSULIN DETEMIR 06953941453 Active Mallashondaeh Ziglari FURNITURE UPHOLSTERER APPRENTICE Active BD INSULIN SYRINGE 28G X 1/2" 1 ML MISC 1 four times per day INSULIN SYRINGE-NEEDLE U-100 69826437717 Active Maljohn Mackenzieglari FURNITURE UPHOLSTERER APPRENTICE Active TOLTERODINE TARTRATE 2 MG TABS 1 pill twice daily, for bladder TOLTERODINE TARTRATE 27643265616 Active Alina Castaneda MD PhD Active DETROL LA 4 MG [id number] Take 1 tablet by mouth daily TOLTERODINE TARTRATE 36115542178 No Longer Active Alina Castaneda MD PhD Active HYDROCODONE-ACETAMINOPHEN 5-325 MG TABS 2 tabs by mouth three times daily as needed for pain HYDROCODONE-ACETAMINOPHEN 31591454564 Active Alina Castaneda MD PhD Active TERESE CONTOUR TEST STRP monitor blood sugars 3x/day GLUCOSE BLOOD 77780918445 No Longer Active Alina Castaneda MD PhD Active EQL TRUETEST TEST STRP Test blood sugar TID GLUCOSE BLOOD 00274536138 No Longer Active Alina Castaneda MD PhD Active FLUTICASONE PROPIONATE 50 MCG/ACT SUSP 2 sprays each nostril qDay x 30 days FLUTICASONE PROPIONATE 08557706615 No Longer Active Alina Castaneda MD PhD Active IBUPROFEN 200 MG TABS 1 Q 6 hr. PRN IBUPROFEN 24015072986 No Longer Active Alina Castaneda MD PhD Active NIACIN ER 500 MG CR-TABS 4 qHS (for triglycerides) NIACIN 38711248796 No Longer Active Alina Castaneda MD PhD Active ALFUZOSIN HCL ER 10 MG [id number] 1 tablet daily ALFUZOSIN HCL 39499272297 Active Vanessa Hickey MD Active CLONAZEPAM 1 MG TABS 1 pill by mouth three times daily CLONAZEPAM 96855052540 Active Alina Castaneda MD PhD Active LOVAZA 1 GM CAPS 4 daily (for triglycerides) [id number] ETHYL ESTERS 33687868813 Active Alina Castaneda MD PhD Active SAPHRIS 5 MG SUBL by mouth twice a day ASENAPINE MALEATE 83361272336 No Longer Active Marvel MARROQUIN Active ACETAMINOPHEN 500 MG TABS 2 Q 6 hr. PRN ACETAMINOPHEN 16149919429 No Longer Active Marvel MARROQUIN Active ORPHENADRINE CITRATE ER 100 MG HK23D-HQK 1 every 12 hr. as needed ORPHENADRINE CITRATE 60954768327 No Longer Active Alina Castaneda MD PhD Active NIACIN CR 500 MG CR-TABS 2 qHS NIACIN 21069500854 No Longer Active Alina Castaneda MD PhD Active AMOXICILLIN 500 MG CAPS 2 po BID x 10 days AMOXICILLIN 18679783762 No Longer Active Alina Castaneda MD PhD Active HYDROCODONE-ACETAMINOPHEN 7.5-325 MG TABS 1 four times a day as needed for pain HYDROCODONE-ACETAMINOPHEN 08888769419 No Longer Active Alina Castaneda MD PhD Active METFORMIN HCL ER 500 MG BC74X-JSJ Take three tablets by mouth everyday METFORMIN HCL 75383647471 Active Marvel MENDOZAP Active DOXEPIN HCL 10 MG CAPS Take 1 tablet by mouth daily DOXEPIN HCL 95718870806 No Longer Active Salina Han RMA Active NAVANE 10 MG CAPS 1/2 tablet twice a day THIOTHIXENE No Longer Active Salina Han RMA Active CYCLOBENZAPRINE HCL 10 MG TABS 1/2 tablet by mouth every 8 hours as needed for muscle spasms CYCLOBENZAPRINE HCL 88030965592 No Longer Active Alina Castaneda MD PhD Active BACTROBAN 2 % CREAM apply to ear and nose twice daily MUPIROCIN CALCIUM 19005233425 No Longer Active Alina Castaneda MD PhD Active HYDROCODONE-ACETAMINOPHEN 5-325 MG TABS take one tablet by mouth every four hours as needed for pain HYDROCODONE-ACETAMINOPHEN 43121625573 No Longer Active Alina Castaneda MD PhD Active ZOLPIDEM TARTRATE 10 MG TABS take at bedtime ZOLPIDEM TARTRATE 49771265296 Active Alina Castaneda MD PhD Active ZYPREXA 5 MG TABS take one tablet by mouth every evening OLANZAPINE 66089215811 No Longer Active Alina Castaneda MD PhD Active ALBUTEROL SULFATE 0.083 % NEBU SOLN one vial per nebulizer TID and PRN cough/ soa ALBUTEROL SULFATE 19235133314 No Longer Active Alina Castaneda MD PhD Active GUAIFENESIN 600 MG [id number] 1 tablet by mouth twice daily if needed for cough GUAIFENESIN 06705396732 No Longer Active Marvel MENDOZAP Active AZITHROMYCIN 500 MG SOLR 1 po q day AZITHROMYCIN 57432096865 No Longer Active Alina Castaneda MD PhD Active METOPROLOL SUCCINATE 100 MG LE48A-WVH 1 by mouth daily for blood pressure METOPROLOL SUCCINATE 80953543866 Active Alina Castaneda MD PhD Active PROMETHAZINE-CODEINE 6.25-10 MG/5ML SYRP 1 tsp po q 6 hours prn cough PROMETHAZINE-CODEINE 27670112678 No Longer Active Alina Castaneda MD PhD Active CEFDINIR 300 MG CAPS by mouth twice a day CEFDINIR 15279756309 No Longer Active Alina Castaneda MD PhD Active METFORMIN HCL 500 MG WZ74D-EZM Take 3 tablets by mouth everyday METFORMIN HCL 90324303808 No Longer Active Alina Castaneda MD PhD Active LEVEMIR 100 UNIT/ML SOLN 90 units SQ qHS INSULIN DETEMIR 07449608506 No Longer Active Marvel MARROQUIN Active TOPROL XL 100 MG [id number]-ZGP 1 @ HS METOPROLOL SUCCINATE 06613685977 No Longer Active Marvel MARROQUIN Active ALLOPURINOL 300 MG TABS Take one by mouth daily ALLOPURINOL 22237555354 Active Alina Castaneda MD PhD Active ZYPREXA 10 MG TABS Take one by mouth daily OLANZAPINE 38329856044 No Longer Active Alina Castaneda MD PhD Active NOVOLOG 100 UNIT/ML SOLN 40 units with every meal INSULIN ASPART 83779952738 No Longer Active Alina Castaneda MD PhD Active VERAPAMIL HCL CR 120 MG TAB CR 1 qPM VERAPAMIL HCL 94793682679 No Longer Active Salina Han A Active ZYPREXA 15 MG TABS Take 1 tablet by mouth daily OLANZAPINE 94770850754 No Longer Active Brooksjohn MARROQUIN Active LISINOPRIL 20 MG TABS 1 BID LISINOPRIL 23964141102 Active Alina Castaneda MD PhD Active ALBUTEROL SULFATE (2.5 MG/3ML) 0.083% NEBU 1 neb tid and prn cough ALBUTEROL SULFATE 53061251572 No Longer Active Alina Castaneda MD PhD Active FLUVOXAMINE MALEATE 100 MG TABS Take one (1) tablet by mouth am, 1/2 at noon, 1 pm FLUVOXAMINE MALEATE 89498326515 Active Alina Castaneda MD PhD Active TRAVATAN Z 0.004 % SOLN 1 gtt each eye daily TRAVOPROST 09292514492 Active CRYSTAL Suarez Active LANTUS 100 UNIT/ML SOLN 60 units sq q hs INSULIN GLARGINE 39476933516 No Longer Active CRYSTAL Suarez Active ALBUTEROL SULFATE (2.5 MG/3ML) 0.083% NEBU 1 neb tid and prn cough ALBUTEROL SULFATE (2.5 MG/3ML) 0.083% NEBU 131391 ALBUTEROL SULFATE Inactive ZYPREXA 15 MG TABS Take 1 tablet by mouth daily ZYPREXA 15 MG TABS 780798 OLANZAPINE Inactive VERAPAMIL HCL CR 120 MG TAB CR 1 qPM VERAPAMIL HCL CR 120 MG TAB CR VERAPAMIL HCL Inactive ZYPREXA 10 MG TABS Take one by mouth daily ZYPREXA 10 MG TABS 201347 OLANZAPINE Inactive TOPROL XL 100 MG [id number] 1 @ HS TOPROL XL 100 MG PR36E-JRK METOPROLOL SUCCINATE Inactive LEVEMIR 100 UNIT/ML SOLN 90 units SQ qHS LEVEMIR 100 UNIT/ML SOLN INSULIN DETEMIR Inactive PROMETHAZINE-CODEINE 6.25-10 MG/5ML SYRP 1 tsp po q 6 hours prn cough PROMETHAZINE-CODEINE 6.25-10 MG/5ML SYRP 487593 PROMETHAZINE- CODEINE Inactive GUAIFENESIN 600 MG BT68Z-ULR 1 tablet by mouth twice daily if needed for cough GUAIFENESIN 600 MG [id number]-FEW GUAIFENESIN Inactive ALBUTEROL SULFATE 0.083 % NEBU SOLN one vial per nebulizer TID and PRN cough/ soa ALBUTEROL SULFATE 0.083 % NEBU SOLN 653157 ALBUTEROL SULFATE Inactive ZYPREXA 5 MG TABS take one tablet by mouth every evening ZYPREXA 5 MG TABS 275785 OLANZAPINE Inactive HYDROCODONE-ACETAMINOPHEN 5-325 MG TABS take one tablet by mouth every four hours as needed for pain HYDROCODONE-ACETAMINOPHEN 5-325 MG TABS 006340 HYDROCODONE-ACETAMINOPHEN Inactive BACTROBAN 2 % CREAM apply to ear and nose twice daily BACTROBAN 2 % CREAM 523008 MUPIROCIN CALCIUM Inactive CYCLOBENZAPRINE HCL 10 MG TABS 1/2 tablet by mouth every 8 hours as needed for muscle spasms CYCLOBENZAPRINE HCL 10 MG TABS 647138 CYCLOBENZAPRINE HCL Inactive NAVANE 10 MG CAPS 1/2 tablet twice a day NAVANE 10 MG CAPS THIOTHIXENE Inactive DOXEPIN HCL 10 MG CAPS Take 1 tablet by mouth daily DOXEPIN HCL 10 MG CAPS 1480666 DOXEPIN HCL Inactive HYDROCODONE-ACETAMINOPHEN 7.5-325 MG TABS 1 four times a day as needed for pain HYDROCODONE-ACETAMINOPHEN 7.5-325 MG TABS 545377 HYDROCODONE-ACETAMINOPHEN Inactive NIACIN CR 500 MG CR-TABS 2 qHS NIACIN CR 500 MG CR- TABS NIACIN Inactive ORPHENADRINE CITRATE ER 100 MG [id number]-XTR 1 every 12 hr. as needed ORPHENADRINE CITRATE ER 100 MG [id number]-MTQ ORPHENADRINE CITRATE Inactive ACETAMINOPHEN 500 MG TABS 2 Q 6 hr. PRN ACETAMINOPHEN 500 MG TABS 573257 ACETAMINOPHEN Inactive SAPHRIS 5 MG SUBL by mouth twice a day SAPHRIS 5 MG SUBL ASENAPINE MALEATE Inactive NIACIN ER 500 MG CR-TABS 4 qHS (for triglycerides) NIACIN ER 500 MG CR-TABS NIACIN Inactive IBUPROFEN 200 MG TABS 1 Q 6 hr. PRN IBUPROFEN 200 MG TABS 212205 IBUPROFEN Inactive FLUTICASONE PROPIONATE 50 MCG/ACT SUSP 2 sprays each nostril qDay x 30 days FLUTICASONE PROPIONATE 50 MCG/ACT SUSP 526243 FLUTICASONE PROPIONATE Inactive EQL TRUETEST TEST STRP Test blood sugar TID EQL TRUETEST TEST STRP GLUCOSE BLOOD Inactive TERESE CONTOUR TEST STRP monitor blood sugars 3x/day TERESE CONTOUR TEST STRP GLUCOSE BLOOD Inactive DETROL LA 4 MG [id number] Take 1 tablet by mouth daily DETROL LA 4 MG [id number] TOLTERODINE TARTRATE Inactive ZYPREXA 7.5 MG TABS 1 at HS ZYPREXA 7.5 MG TABS 552053 OLANZAPINE Inactive THIOTHIXENE 5 MG CAPS by mouth twice a day THIOTHIXENE 5 MG CAPS 899568 THIOTHIXENE Inactive UROXATRAL 10 MG LI51U-FMC Take 1 tablet by mouth daily UROXATRAL 10 MG [id number]-LQC ALFUZOSIN HCL Inactive ACYCLOVIR 400 MG ORAL TABS 1 pill three times daily x 5 days, for cold sore outbreak ACYCLOVIR 400 MG ORAL TABS 930150 ACYCLOVIR Inactive TRUETEST TEST STRP check sugars 4x/day TRUETEST TEST STRP GLUCOSE BLOOD Inactive HUMALOG 100 UNIT/ML SOLN Take 20 units with breakfast, 10u with lunch and suppetr. HUMALOG 100 UNIT/ML SOLN INSULIN LISPRO ( HUMAN) Inactive CYCLOBENZAPRINE HCL 10 MG TABS 1 tablet by mouth three times daily, scheduled CYCLOBENZAPRINE HCL 10 MG TABS 858492 CYCLOBENZAPRINE HCL Inactive ACCU-CHEK ROSA INVITR STRP use strips with device to check blood sugars 3 times daily ACCU-CHEK ROSA INVITR STRP GLUCOSE BLOOD Inactive ACCU-CHEK ROSA UZMA Use device to check blood sugars ACCU-CHEK ROSA UZMA BLOOD GLUCOSE MONITORING SUPPL Inactive CEFDINIR 300 MG CAPS by mouth twice a day CEFDINIR 300 MG CAPS 486728 CEFDINIR Inactive AZITHROMYCIN 500 MG SOLR 1 po q day AZITHROMYCIN 500 MG SOLR 719772 AZITHROMYCIN Inactive AMOXICILLIN 500 MG CAPS 2 po BID x 10 days AMOXICILLIN 500 MG CAPS 784479 AMOXICILLIN Inactive PENICILLIN V POTASSIUM 500 MG TABS 1 pill by mouth three times daily PENICILLIN V POTASSIUM 500 MG TABS 127146 PENICILLIN V POTASSIUM Inactive Immunizations Vaccine Administration [...] Fluvirin, Fluarix, Agriflu(>=18 yo)) Fluzone (>3 yrs.) [[id number]] Influenza, seasonal, injectable pneumococcal immunization administered Pneumovax [...] HGBA1C - Chemistry sodium, serum 131 mmol/L 787-533 7043/12/30 potassium, serum 5.0 mmol/L 3.5-5.2 chloride, serum 95 mmol/L 98-107 carbon dioxide, venous blood 26.7 mmol/L 21.0-32.0 blood glucose 112 mg/dL 65-110 calcium, serum 9.2 mg/dL 8.5-10.1 urea nitrogen, blood 12 mg/dL 7-18 creatinine, serum 1.10 mg/dL 0.60-1.30 hemoglobin A1C, blood, as % of total hemoglobin 5.8 % 4.3-6.0 Lab Report: Basic Metabolic Panel, HGBA1C, MICROALBUMIN - Chemistry sodium, serum 137 mmol/L 152-835 0180/05/19 potassium, serum 5.2 mmol/L 3.5-5.2 chloride, serum [...] microalbumin, urine 10 0-19 Lab Report: Chlamydia/GC APTIMA/92776, HIV-1/2 Agn/Dominga/87766, RPR (DX) W ... - Chemistry hepatitis B surface antigen NON-REACTIVE NON-REACTIVE Lab Report: Chlamydia/GC APTIMA/57328, HIV-1/2 Agn/Dominga/41333, RPR (DX) W ... - Lab chlamydia DNA probe NOT DETECTED NOT DETECTED Lab Report: Chlamydia/GC APTIMA/06400, HIV-1/2 Agn/Dominga/36501, RPR (DX) W ... - Microbiology Neisseria gonorrhoeae DNA probe NOT DETECTED NOT DETECTED Lab Report: Chlamydia/GC APTIMA/09240, HIV-1/2 Agn/Dominga/38052, RPR (DX) W ... - Serology rapid plasma reagin antibody titer NON-REACTIVE NON-REACTIVE Lab Report: Comp. Metabolic Panel - Chemistry sodium, serum 127 mmol/L 825-277 9473/10/27 potassium, serum 4.1 mmol/L 3.5-5.2 chloride, serum [...] CBC - Chemistry cholesterol, serum 131 mg/dL 332-161 4296/06/03 triglyceride, serum, fasting 383 mg/dL 30-200 HDL [...] 4.7 mg/dL 2.6-7.2 cholesterol, serum 142 mg/dL 741-414 0778/06/26 triglyceride, serum, fasting 272 mg/dL 30-200 HDL [...] mg/dL Encounters Code Encounter Date Provider Facility CPT-30245 Level 3 Est. Patient 14:46:15 JEANNINE Hickey MD [facility] CPT-77952 Level 3 Est. Patient 09:34:56 CDT Alina Castaneda MD [facility]-95578 Level 3 Est. Patient 21:40:19 CDT Mima Erazo ALBAN [facility] CPT-46777 Level 3 Est. Patient 09:26:40 CDT Marvel [facility]-91053 Level 3 Est. Patient 12:36:43 CDT Vaenssa Hickey MD [facility]-08906 Level 3 Est. Patient 12:57:49 CDT Vanessa Hickey MD [facility]-88816 Level 3 Est. Patient 00:28:25 CDT Alina Castaneda MD [facility]-74109 Level 2 Est. Patient 12:52:14 CDT Alina Castaneda MD [facility]-75525 Level 3 Est. Patient 11:51:18 SERVICE ORDER DISPATCHER CHIEF Alina Castaneda MD [facility]-02017 Level 3 Est. Patient 10:09:22 SERVICE ORDER DISPATCHER CHIEF Alina Castaneda MD [facility]-99815 Level 3 Est. Patient 14:36:26 SERVICE ORDER DISPATCHER CHIEF Marvel Charles [facility]-26069 Level 3 Est. Patient 13:34:47 SERVICE ORDER DISPATCHER CHIEF Alina Castaneda MD [facility]-49542 Level 3 Est. Patient 19:52:08 SERVICE ORDER DISPATCHER CHIEF Alina Castaneda MD [facility] CPT-51064 Level 3 Est. Patient 10:01:51 SERVICE ORDER DISPATCHER CHIEF Marvel Charles [facility]-64722 Level 3 Est. Patient 21:54:06 CDT Vanessa Hickey MD [facility]-80224 Level 3 Est. Patient 08:54:46 CDT Alina Castaneda MD [facility]-24404 Level 3 Est. Patient 09:32:11 CDT Marvel Thurstonestela [facility]-85539 Level 3 Est. Patient 12:02:49 CDT Alina Castaneda MD [facility]-44958 Level 3 Est. Patient 19:17:33 CDT Alina Castaneda MD PhD [facility]26554 Level 3 Est. Patient 13:19:10 CDT Marvel Gurdeepajayestela [facility]-77487 Level 3 Est. Patient 08:20:05 CDT Alina Castaneda MD [facility]67458 Level 3 Est. Patient 15:17:18 CDT Alina Castaneda MD [facility]-91648 Level 3 Est. Patient 14:25:36 SERVICE ORDER DISPATCHER CHIEF [facility] Level 3 Est. Patient 10:09:15 SERVICE ORDER DISPATCHER CHIEF [facility]79969 Level 3 Est. Patient 21:28:43 CDT Alina Castaneda MD [facility]-42991 Level 3 Est. Patient 15:20:11 CDT Marvel Araceli [facility]-93877 Level 4 Est. Patient 19:08:12 CDT Alina [facility] MD [facility]64431 Level 3 Est. Patient 15:06:39 CDT Marvel Charles [facility]-60133 Level 4 Est. Patient 17:48:15 CDT Alina Castaneda MD [facility]-45201 Level 3 Est. Patient 14:53:49 CDT Alina Castaneda MD PhD [facility]24979 Level 3 Est. Patient 09:35:16 CDT Alina Castaneda MD [facility]-60214 Level 3 Est. Patient 12:23:22 CDT Alina Castaneda MD [facility]-88549 Level 3 Est. Patient 16:19:15 CDT Alina Castaneda MD [facility]-60765 Level 3 Est. Patient 21:39:56 SERVICE ORDER DISPATCHER CHIEF Alina Castaneda MD [facility]-53176 Level 4 Est. Patient 14:12:56 SERVICE ORDER DISPATCHER CHIEF Alina Castaneda MD [facility]-18450 Level 2 Est. Patient 15:34:57 SERVICE ORDER DISPATCHER CHIEF Alina Castaneda MD [facility]-94963 Level 3 Est. Patient 12:17:04 SERVICE ORDER DISPATCHER CHIEF Alina Castaneda MD [facility]-41340 Level 3 Est. Patient 09:18:18 SERVICE ORDER DISPATCHER CHIEF Marvel Charles [facility]-58766 Level 2 Est. Patient 21:50:24 CDT Alina Castaneda MD [facility]-06746 Level 3 Est. Patient 09:17:28 CDT Marvel Charles [facility]-90547 Level 4 Est. Patient 18:54:02 CDT Alina Castaneda MD [facility]-94371 Level 3 Est. Patient 10:47:10 CDT Alina Castaneda MD [facility]-69530 Level 3 Est. Patient 09:22:20 CDT Marvel Charles [facility]-18982 Level 3 Est. Patient 16:39:43 [facility] Level 3 Est. Patient 16:05:16 CDT Alina Castaneda MD [facility] CPT-32316 Level 3 Est. Patient 00:29:15 CDT Alina Castaneda MD [facility] CPT-45893 Level 3 Est. Patient 10:49:22 SERVICE ORDER DISPATCHER CHIEF Marvel Thurstonestela [facility] CPT-13212 Level 3 Est. Patient 21:30:19 SERVICE ORDER DISPATCHER CHIEF Alina Castaneda MD [facility] CPT-14835 Level 4 Est. Patient 17:04:11 SERVICE ORDER DISPATCHER CHIEF Marvel Mackenzieestela [facility] CPT-19858 Level 3 Est. Patient 15:34:11 SERVICE ORDER DISPATCHER [facility]IEF [facility] Level 2 Est. Patient 12:51:58 SERVICE ORDER DISPATCHER CHIEF Alina Castaneda MD [facility] CPT-77138 Level 3 Est. Patient 13:20:01 SERVICE ORDER DISPATCHER CHIEF Alina Castaneda MD [facility] CPT-26400 Level 3 Est. Patient 09:23:35 CDT Alina Castaneda MD [facility] Procedures Code Procedure Name Date Entry Date Standard Description CPT-12266 Bladder Scan 12:36:44 CDT CPT-54717 Bladder Scan 21:54:06 CDT CPT-G0008 Administration of Influenza Virus Vaccine 13:05:26 CDT CPT-57211 Fluzone Quadrivalent Intramuscular Suspension 0.5 ML 13: 05:26 CDT CPT-18785 Administration single or combination vaccine inc oral 11 :49:51 CDT CPT-58385 Pneumovax 11:49:51 CDT CPT-67159 Ribs unilateral 2V 12:37:22 SERVICE ORDER DISPATCHER CHIEF CPT-10149 Chest 2V Frontal and Lat 17:15:26 CDT CPT-40614 Abx/Therapy Injection 18:54:02 CDT CPT-J0696 Rocephin 1000 mg (Ceftriaxone) 16:00:32 CDT CPT-20404 Chest 2V Frontal and Lat 15:26:45 CDT CPT-11027 Chest 2V Frontal and Lat 10:23:27 CDT CPT-73098 Venipuncture Draw Fee 10:11:00 CDT CPT-24225 Administration single or combination vaccine inc oral 11 :56:38 CDT CPT-71442 Influenza split virus > age 3 11:56:38 CDT CPT-28936 Venipuncture Draw Fee 08:49:54 SERVICE ORDER DISPATCHER CHIEF CPT-45617 EKG Trac and Interp 17:54:19 SERVICE ORDER DISPATCHER CHIEF
--- OUTSIDE RECORDS SUMMARY | 2018-07-02 17:41 | XMS REPORT | Clinical Summary ---
Author Author Admin, TERELL Organization [facility] Address Unknown Phone Unavailable Allergies, Adverse 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 Erazo LINE DIRECTOR Benign paroxysmal positional vertigo Vertigo, benign paroxysmal position 386.11 Inactive Mima Erazo LINE DIRECTOR Benign paroxysmal positional vertigo High-risk sexual behavior V69.2 Active Alina Castaneda MD PhD High-risk sexual behavior Erectile dysfunction 302.72 Active Alina Castaneda MD PhD Psychosexual dysfunction with inhibited sexual excitement Constipation 564.00 Active Alina Castaneda MD PhD Constipation, unspecified Skin lesion 709.9 Active Alina Castaneda MD PhD Unspecified disorder of skin and subcutaneous tissue Malaise and fatigue 780.79 Active Cherelle Speaks LINE DIRECTOR Other malaise and fatigue Diarrhea 787.91 Active Cherelle Speaks LINE DIRECTOR Diarrhea PHARYNGITIS 462 Active Cherelle Speaks LINE DIRECTOR Acute pharyngitis Colitis 558.9 Active Mima Erazo LINE DIRECTOR Other and unspecified noninfectious gastroenteritis and colitis WOUND, OPEN, NOSE ICD-873.20 Inactive Alina Castaneda MD PhD DIABETES, TYPE 2 ICD-250.00 Inactive Alina Csataneda MD PhD HYPERTENSION ICD-401.9 Inactive Alina Castaneda MD PhD URI ICD-465.9 Inactive Alina Castaneda MD PhD CHEST PAIN ICD-786.50 Inactive Alina Castaneda MD PhD FH STROKE ICD-V17.1 Inactive Marvel Charles MECHANICAL SERVICE TECHNICIAN FATIGUE ICD-780.79 Inactive Alina Castaneda MD [...] mouth twice daily, for constipation DOCUSATE SODIUM 86757390202 No Longer Active Mima Erazo APRN Active FLONASE ALLERGY RELIEF 50 MCG/ACT NASAL SUSP One spray each nostril BID x 1 week then daily FLUTICASONE PROPIONATE 03477523891 Active Mimacecily Erazo APRN Active BD PEN NEEDLE MINI U/F 31G X 5 MM MISC 4 a day INSULIN PEN NEEDLE 88307320452 Active Mallashondaeh Ziglari MECHANICAL SERVICE TECHNICIAN Active AMITIZA 24 MCG ORAL CAPS Take one capsule BID for constipation LUBIPROSTONE 23420780456 Active Mimacecily Erazo APRN Active LEVEMIR FLEXTOUCH 100 UNIT/ML SC SOPN 75 units SQ each evening, for diabetes INSULIN DETEMIR 83151726913 Active Mima Erazo APRN Active TRUEPLUS LANCETS 30G MISC 3 a day LANCETS 95727185289 Active Mallashondaeh Ziglari MECHANICAL SERVICE TECHNICIAN Active TOLTERODINE TARTRATE 2 MG TABS 1 pill twice daily, for bladder TOLTERODINE TARTRATE 16959995871 No Longer Active Vanessa Hickey MD Active AMITIZA 24 MCG ORAL CAPS Take one capsule BID for constipation. LUBIPROSTONE 22164129087 No Longer Active Vanessa Hickey MD Active LOMOTIL 2.5-0.025 MG ORAL TABS take 1-2 tabs PO after each stool, no more than 8 in 24 hours DIPHENOXYLATE-ATROPINE 60699720215 Active Grace Nascimento RMA Active FLUVOXAMINE MALEATE 100 MG ORAL TABS take one tab every AM et HS, and take 1/ 2 tab at noon FLUVOXAMINE MALEATE 15135482353 Active Gracekailee Nascimento RMA Active METOPROLOL SUCCINATE 100 MG [id number] 1 by mouth daily for blood pressure METOPROLOL SUCCINATE 38473201600 No Longer Active Grace Nascimento RMA Active METFORMIN HCL ER 500 MG NZ77A-ZUP Take three tablets by mouth everyday METFORMIN HCL 70504379227 No Longer Active Grace Nascimento RMA Active LOVAZA 1 GM CAPS 4 daily (for triglycerides) OMEGA-3- ACID ETHYL ESTERS 02322838604 No Longer Active Grace Nascimento RMA Active TRAZODONE HCL 100 MG ORAL TABS 1 tab by mouth for sleep TRAZODONE HCL 98617436501 No Longer Active Grace Nascimento RMA Active NOVOFINE 32G X 6 MM MISC use one four times per day INSULIN PEN NEEDLE 32786258396 No Longer Active Grace Nascimento RMA Active BACTROBAN 2 % CREAM Apply to affected area BID for up to 10 days MUPIROCIN CALCIUM 58408097471 No Longer Active Grace Nascimento RMA Active ZOFRAN 4 MG TABS 1 po q4hr PRN Nausea ONDANSETRON HCL 34866427825 Active Salina Han RMA Active KEFLEX 500 MG CAP 1 po BID x 7 days CEPHALEXIN 94828686603 No Longer Active Cherelle Avila APRN Active FLUVOXAMINE MALEATE 100 MG TABS Take one (1) tablet by mouth am, 1/2 at noon FLUVOXAMINE MALEATE 45291786323 No Longer Active Mima Erazo LINE DIRECTOR Active CORICIDIN HBP CONGESTION/COUGH 10-200 MG ORAL CAPS Take as directed on box as needed for cold/flu symptoms DEXTROMETHORPHAN-GUAIFENESIN 05039297157 Active Cherelle Speaks LINE DIRECTOR Active OMEGA-3 300 MG ORAL CAPS 4 caps by mouth daily OMEGA-3 FATTY ACIDS 05118211799 Active Mima Erazo LINE DIRECTOR Active FLUVOXAMINE MALEATE 100 MG ORAL TABS Take 1/2 tab at noon FLUVOXAMINE MALEATE 79323528131 No Longer Active Cherelle Speaks LINE DIRECTOR Active [facility] LUBRICANT EYE DROPS 0.4-0.3 % OPHTH SOLN POLYETHYL GLYCOL-PROPYL GLYCOL 44357357876 Active Mima Erazo LINE DIRECTOR Active CLONAZEPAM 1 MG TABS 1/2 pill by mouth three times daily CLONAZEPAM 71859842658 Active Mason Loredo MD Active MIRALAX POWD 17g by mouth daily, for constipation POLYETHYLENE GLYCOL 3350 99675804906 Active Alina Castaneda MD PhD Active HYDROCODONE-ACETAMINOPHEN 5-325 MG TABS 2 tabs by mouth three times daily for pain HYDROCODONE-ACETAMINOPHEN 37457565389 Active Mima Erazo LINE DIRECTOR Active HUMALOG KWIKPEN 100 UNIT/ML SC SOPN 20 units with breakfast, 10 units with lunch, 10 units with dinner, for diabetes INSULIN LISPRO (HUMAN ) 64141470867 Active Alina Castaneda MD PhD Active LATUDA 120 MG ORAL TABS 1 pill by mouth nightly LURASIDONE HCL 91713858333 Active Alina Castaneda MD PhD Active TRUETEST TEST STRP check blood sugars 3x/day GLUCOSE BLOOD 86845436823 Active Marvel Charles MECHANICAL SERVICE TECHNICIAN Active ACCU-CHEK ROSA UZMA Use device to check blood sugars BLOOD GLUCOSE MONITORING SUPPL 00057252878 No Longer Active Marvel Charles MECHANICAL SERVICE TECHNICIAN Active ACCU-CHEK ROSA INVITR STRP use strips with device to check blood sugars 3 times daily GLUCOSE BLOOD 77849029703 No Longer Active Marvel MARROQUIN Active VERAPAMIL HCL ER 180 MG ORAL CR-TABS 1 pill by mouth twice daily, for migraine prevention VERAPAMIL HCL 08545243815 Active CRYSTAL Rodrigues Active CYCLOBENZAPRINE HCL 10 MG TABS 1 tablet by mouth three times daily, scheduled CYCLOBENZAPRINE HCL 84352009315 No Longer Active Alina Castaneda MD PhD Active HUMALOG 100 UNIT/ML SOLN Take 20 units with breakfast, 10u with lunch and suppetr. INSULIN LISPRO (HUMAN) 77079190520 No Longer Active Alina Castaneda MD PhD Active TRUETEST TEST STRP check sugars 4x/day GLUCOSE BLOOD 62539239153 No Longer Active Alina Castaneda MD PhD Active MORPHINE SULFATE 30 MG TABS 1 pill by mouth twice daily, for pain MORPHINE SULFATE 71203669676 Active Mason Loredo MD Active ACYCLOVIR 400 MG ORAL TABS 1 pill three times daily x 5 days, for cold sore outbreak ACYCLOVIR 51652848654 No Longer Active Alina Castaneda MD PhD Active PENICILLIN V POTASSIUM 500 MG TABS 1 pill by mouth three times daily PENICILLIN V POTASSIUM 30545445214 No Longer Active Alina Castaneda MD PhD Active UROXATRAL 10 MG [id number]-JFT Take 1 tablet by mouth daily ALFUZOSIN HCL 74726777602 No Longer Active Alina Castaneda MD PhD Active THIOTHIXENE 5 MG CAPS by mouth twice a day THIOTHIXENE 76121720558 No Longer Active Alina Castaneda MD PhD Active ZYPREXA 7.5 MG TABS 1 at HS OLANZAPINE 75244634928 No Longer Active Alina Castaneda MD PhD Active BD INSULIN SYRINGE 28G X 1/2" 1 ML MISC 1 four times per day INSULIN SYRINGE-NEEDLE U-100 33407039968 Active Marvel MARROQUIN Active DETROL LA 4 MG [id number]-VLC Take 1 tablet by mouth daily TOLTERODINE TARTRATE 68099073144 No Longer Active Alina Castaneda MD PhD Active TERESE CONTOUR TEST STRP monitor blood sugars 3x/day GLUCOSE BLOOD 72676665496 No Longer Active Alina Castaneda MD PhD Active EQL TRUETEST TEST STRP Test blood sugar TID GLUCOSE BLOOD 41781691684 No Longer Active Alina Castaneda MD PhD Active FLUTICASONE PROPIONATE 50 MCG/ACT SUSP 2 sprays each nostril qDay x 30 days FLUTICASONE PROPIONATE 30943915108 No Longer Active Alina Castaneda MD PhD Active IBUPROFEN 200 MG TABS 1 Q 6 hr. PRN IBUPROFEN 61702909779 No Longer Active Alina Castaneda MD PhD Active NIACIN ER 500 MG CR-TABS 4 qHS (for triglycerides) NIACIN 70426137685 No Longer Active Alina Castaneda MD PhD Active ALFUZOSIN HCL ER 10 MG [id number]-MFK 1 tablet daily ALFUZOSIN HCL 53144497993 Active CRYSTAL Rodrigues Active SAPHRIS 5 MG SUBL by mouth twice a day ASENAPINE MALEATE 55723410642 No Longer Active Marvel MARROQUIN Active ACETAMINOPHEN 500 MG TABS 2 Q 6 hr. PRN ACETAMINOPHEN 74603245561 No Longer Active Marvel MARROQUIN Active ORPHENADRINE CITRATE ER 100 MG [id number]-FGQ 1 every 12 hr. as needed ORPHENADRINE CITRATE 93256908607 No Longer Active Alina Castaneda MD PhD Active NIACIN CR 500 MG CR-TABS 2 qHS NIACIN 50768861148 No Longer Active Alina Castaneda MD PhD Active AMOXICILLIN 500 MG CAPS 2 po BID x 10 days AMOXICILLIN 87129924722 No Longer Active Alina Castaneda MD PhD Active HYDROCODONE-ACETAMINOPHEN 7.5-325 MG TABS 1 four times a day as needed for pain HYDROCODONE-ACETAMINOPHEN 11509982301 No Longer Active Alina Castaneda MD PhD Active DOXEPIN HCL 10 MG CAPS Take 1 tablet by mouth daily DOXEPIN HCL 60141744963 No Longer Active Salina Han A Active NAVANE 10 MG CAPS 1/2 tablet twice a day THIOTHIXENE No Longer Active Salina Han A Active CYCLOBENZAPRINE HCL 10 MG TABS 1/2 tablet by mouth every 8 hours as needed for muscle spasms CYCLOBENZAPRINE HCL 11643940453 No Longer Active Alina Castaneda MD PhD Active BACTROBAN 2 % CREAM apply to ear and nose twice daily MUPIROCIN CALCIUM 02810389468 No Longer Active Alina Castaneda MD PhD Active HYDROCODONE-ACETAMINOPHEN 5-325 MG TABS take one tablet by mouth every four hours as needed for pain HYDROCODONE-ACETAMINOPHEN 83663043820 No Longer Active Alina Castaneda MD PhD Active ZOLPIDEM TARTRATE 10 MG TABS take at bedtime ZOLPIDEM TARTRATE 10530351910 Active Alina Castaneda MD PhD Active ZYPREXA 5 MG TABS take one tablet by mouth every evening OLANZAPINE 71266058264 No Longer Active Alina Castaneda MD PhD Active ALBUTEROL SULFATE 0.083 % NEBU SOLN one vial per nebulizer TID and PRN cough/ soa ALBUTEROL SULFATE 11688420196 No Longer Active Alina Castaneda MD PhD Active GUAIFENESIN 600 MG [id number]-JZK 1 tablet by mouth twice daily if needed for cough GUAIFENESIN 29149954320 No Longer Active Marvel MARROQUIN Active AZITHROMYCIN 500 MG SOLR 1 po q day AZITHROMYCIN 91900485775 No Longer Active Alina Castaneda MD PhD Active PROMETHAZINE-CODEINE 6.25-10 MG/5ML SYRP 1 tsp po q 6 hours prn cough PROMETHAZINE-CODEINE 38085479423 No Longer Active Alina Castaneda MD PhD Active CEFDINIR 300 MG CAPS by mouth twice a day CEFDINIR 74099722421 No Longer Active Alina Castaneda MD PhD Active METFORMIN HCL 500 MG [id number]-[id number] Take 3 tablets by mouth everyday METFORMIN HCL 60094430273 No Longer Active Alina Castaneda MD PhD Active LEVEMIR 100 UNIT/ML SOLN 90 units SQ qHS INSULIN DETEMIR 34397411528 No Longer Active Marvel MARROQUIN Active TOPROL XL 100 MG [id number]-CEZ 1 @ HS METOPROLOL SUCCINATE 68263399650 No Longer Active Marvel MARROQUIN Active ALLOPURINOL 300 MG TABS Take one by mouth daily ALLOPURINOL 97205738489 Active Mima Erazo LINE DIRECTOR Active ZYPREXA 10 MG TABS Take one by mouth daily OLANZAPINE 79699598194 No Longer Active Alina Castaneda MD PhD Active NOVOLOG 100 UNIT/ML SOLN 40 units with every meal INSULIN ASPART 24082073141 No Longer Active Alina Castaneda MD PhD Active VERAPAMIL HCL CR 120 MG TAB CR 1 qPM VERAPAMIL HCL 87657422121 No Longer Active Salina ROJAS Active ZYPREXA 15 MG TABS Take 1 tablet by mouth daily OLANZAPINE 04960616781 No Longer Active Marvel MARROQUIN Active LISINOPRIL 20 MG TABS 1 BID LISINOPRIL 72840638553 Active Alina Castaneda MD PhD Active ALBUTEROL SULFATE (2.5 MG/3ML) 0.083% NEBU 1 neb tid and prn cough ALBUTEROL SULFATE 16595292872 No Longer Active Alina Castaneda MD PhD Active TRAVATAN Z 0.004 % SOLN 1 gtt each eye daily TRAVOPROST 96088324877 Active CRYSTAL Suarez Active LANTUS 100 UNIT/ML SOLN 60 units sq q hs INSULIN GLARGINE 40568950269 No Longer Active CRYSTAL Suarez Active ALBUTEROL SULFATE (2.5 MG/3ML) 0.083% NEBU 1 neb tid and prn cough ALBUTEROL SULFATE (2.5 MG/3ML) 0.083% NEBU 693384 ALBUTEROL SULFATE Inactive ZYPREXA 15 MG TABS Take 1 tablet by mouth daily ZYPREXA 15 MG TABS 306613 OLANZAPINE Inactive VERAPAMIL HCL CR 120 MG TAB CR 1 qPM VERAPAMIL HCL CR 120 MG TAB CR VERAPAMIL HCL Inactive ZYPREXA 10 MG TABS Take one by mouth daily ZYPREXA 10 MG TABS 800367 OLANZAPINE Inactive TOPROL XL 100 MG [id number]-CBJ 1 @ HS TOPROL XL 100 MG KD24O-RDK METOPROLOL SUCCINATE Inactive LEVEMIR 100 UNIT/ML SOLN 90 units SQ qHS LEVEMIR 100 UNIT/ML SOLN INSULIN DETEMIR Inactive PROMETHAZINE-CODEINE 6.25-10 MG/5ML SYRP 1 tsp po q 6 hours prn cough PROMETHAZINE-CODEINE 6.25-10 MG/5ML SYRP 252618 PROMETHAZINE- CODEINE Inactive GUAIFENESIN 600 MG IZ18I-FPF 1 tablet by mouth twice daily if needed for cough GUAIFENESIN 600 MG [id number]-LEV GUAIFENESIN Inactive ALBUTEROL SULFATE 0.083 % NEBU SOLN one vial per nebulizer TID and PRN cough/ soa ALBUTEROL SULFATE 0.083 % NEBU SOLN 996701 ALBUTEROL SULFATE Inactive ZYPREXA 5 MG TABS take one tablet by mouth every evening ZYPREXA 5 MG TABS 174192 OLANZAPINE Inactive HYDROCODONE-ACETAMINOPHEN 5-325 MG TABS take one tablet by mouth every four hours as needed for pain HYDROCODONE-ACETAMINOPHEN 5-325 MG TABS 287704 HYDROCODONE-ACETAMINOPHEN Inactive BACTROBAN 2 % CREAM apply to ear and nose twice daily BACTROBAN 2 % CREAM 355617 MUPIROCIN CALCIUM Inactive CYCLOBENZAPRINE HCL 10 MG TABS 1/2 tablet by mouth every 8 hours as needed for muscle spasms CYCLOBENZAPRINE HCL 10 MG TABS 081806 CYCLOBENZAPRINE HCL Inactive NAVANE 10 MG CAPS 1/2 tablet twice a day NAVANE 10 MG CAPS THIOTHIXENE Inactive DOXEPIN HCL 10 MG CAPS Take 1 tablet by mouth daily DOXEPIN HCL 10 MG CAPS 7273909 DOXEPIN HCL Inactive HYDROCODONE-ACETAMINOPHEN 7.5-325 MG TABS 1 four times a day as needed for pain HYDROCODONE-ACETAMINOPHEN 7.5-325 MG TABS 353851 HYDROCODONE-ACETAMINOPHEN Inactive NIACIN CR 500 MG CR-TABS 2 qHS NIACIN CR 500 MG CR- TABS NIACIN Inactive ORPHENADRINE CITRATE ER 100 MG [id number] 1 every 12 hr. as needed ORPHENADRINE CITRATE ER 100 MG [id number]-FYX ORPHENADRINE CITRATE Inactive ACETAMINOPHEN 500 MG TABS 2 Q 6 hr. PRN ACETAMINOPHEN 500 MG TABS 340738 ACETAMINOPHEN Inactive SAPHRIS 5 MG SUBL by mouth twice a day SAPHRIS 5 MG SUBL ASENAPINE MALEATE Inactive NIACIN ER 500 MG CR-TABS 4 qHS (for triglycerides) NIACIN ER 500 MG CR-TABS NIACIN Inactive IBUPROFEN 200 MG TABS 1 Q 6 hr. PRN IBUPROFEN 200 MG TABS 970411 IBUPROFEN Inactive FLUTICASONE PROPIONATE 50 MCG/ACT SUSP 2 sprays each nostril qDay x 30 days FLUTICASONE PROPIONATE 50 MCG/ACT SUSP 823908 FLUTICASONE PROPIONATE Inactive EQL TRUETEST TEST STRP Test blood sugar TID EQL TRUETEST TEST STRP GLUCOSE BLOOD Inactive TERESE CONTOUR TEST STRP monitor blood sugars 3x/day TERESE CONTOUR TEST STRP GLUCOSE BLOOD Inactive DETROL LA 4 MG [id number] Take 1 tablet by mouth daily DETROL LA 4 MG UP34M-JUH TOLTERODINE TARTRATE Inactive ZYPREXA 7.5 MG TABS 1 at HS ZYPREXA 7.5 MG TABS 624417 OLANZAPINE Inactive THIOTHIXENE 5 MG CAPS by mouth twice a day THIOTHIXENE 5 MG CAPS 683125 THIOTHIXENE Inactive UROXATRAL 10 MG [id number] Take 1 tablet by mouth daily UROXATRAL 10 MG TN36C-DMW ALFUZOSIN HCL Inactive ACYCLOVIR 400 MG ORAL TABS 1 pill three times daily x 5 days, for cold sore outbreak ACYCLOVIR 400 MG ORAL TABS 530412 ACYCLOVIR Inactive TRUETEST TEST STRP check sugars 4x/day TRUETEST TEST STRP GLUCOSE BLOOD Inactive HUMALOG 100 UNIT/ML SOLN Take 20 units with breakfast, 10u with lunch and suppetr. HUMALOG 100 UNIT/ML SOLN INSULIN LISPRO ( HUMAN) Inactive CYCLOBENZAPRINE HCL 10 MG TABS 1 tablet by mouth three times daily, scheduled CYCLOBENZAPRINE HCL 10 MG TABS 231525 CYCLOBENZAPRINE HCL Inactive ACCU-CHEK ROSA INVITR STRP use strips with device to check blood sugars 3 times daily ACCU-CHEK ROSA INVITR STRP GLUCOSE BLOOD Inactive ACCU-CHEK ROSA UZMA Use device to check blood sugars ACCU-CHEK ROSA UZMA BLOOD GLUCOSE MONITORING SUPPL Inactive FLUVOXAMINE MALEATE 100 MG ORAL TABS Take 1/2 tab at noon FLUVOXAMINE MALEATE 100 MG ORAL TABS 055459 FLUVOXAMINE MALEATE Inactive FLUVOXAMINE MALEATE 100 MG TABS Take one (1) tablet by mouth am, 1/2 at noon FLUVOXAMINE MALEATE 100 MG TABS 126063 FLUVOXAMINE MALEATE Inactive BACTROBAN 2 % CREAM Apply to affected area BID for up to 10 days BACTROBAN 2 % CREAM 343253 MUPIROCIN CALCIUM Inactive NOVOFINE 32G X 6 MM MISC use one four times per day NOVOFINE 32G X 6 MM MISC INSULIN PEN NEEDLE Inactive TRAZODONE HCL 100 MG ORAL TABS 1 tab by mouth for sleep TRAZODONE HCL 100 MG ORAL TABS 768774 TRAZODONE HCL Inactive LOVAZA 1 GM CAPS 4 daily (for triglycerides) LOVAZA 1 GM CAPS 146218 MMGQG-7-MOEY ETHYL ESTERS Inactive METFORMIN HCL ER 500 MG [id number]-XKW Take three tablets by mouth everyday METFORMIN HCL ER 500 MG PL19F-OUV METFORMIN HCL Inactive METOPROLOL SUCCINATE 100 MG DY07X-RNJ 1 by mouth daily for blood pressure METOPROLOL SUCCINATE 100 MG PI53D-XOM METOPROLOL SUCCINATE Inactive AMITIZA 24 MCG ORAL CAPS Take one capsule BID for constipation. AMITIZA 24 MCG ORAL CAPS LUBIPROSTONE Inactive TOLTERODINE TARTRATE 2 MG TABS 1 pill twice daily, for bladder TOLTERODINE TARTRATE 2 MG TABS 055362 TOLTERODINE TARTRATE Inactive COLACE 100 MG CAPS 1 pill by mouth twice daily, for constipation COLACE 100 MG CAPS 8240639 DOCUSATE SODIUM Inactive CEFDINIR 300 MG CAPS by mouth twice a day CEFDINIR 300 MG CAPS 231846 CEFDINIR Inactive AZITHROMYCIN 500 MG SOLR 1 po q day AZITHROMYCIN 500 MG SOLR 51244797729 AZITHROMYCIN Inactive AMOXICILLIN 500 MG CAPS 2 po BID x 10 days AMOXICILLIN 500 MG CAPS 632765 AMOXICILLIN Inactive PENICILLIN V POTASSIUM 500 MG TABS 1 pill by mouth three times daily PENICILLIN V POTASSIUM 500 MG TABS 519280 PENICILLIN V POTASSIUM Inactive KEFLEX 500 MG CAP 1 po BID x 7 days KEFLEX 500 MG CAP 797721 CEPHALEXIN Inactive Immunizations Vaccine Administration Date Value [...] Fluvirin, Fluarix, Agriflu(>=18 yo)) Fluzone (>3 yrs.) [[id number]] Influenza, seasonal, injectable pneumococcal immunization administered Pneumovax [...] Panel - Chemistry sodium, serum 137 mmol/L 500-710 2008/10/12 potassium, serum 4.8 mmol/L 3.5-5.2 chloride, serum 102 mmol/L 98-107 carbon dioxide, venous blood 27.6 mmol/L 21.0-32.0 blood glucose 168 mg/dL 65-110 calcium, serum 9.0 mg/dL 8.5-10.1 urea nitrogen, blood 15 mg/dL 7-18 creatinine, serum 1.04 mg/dL 0.55-1.30 sodium, serum 138 mmol/L 801-813 8811/11/11 potassium, serum 4.7 mmol/L 3.5-5.2 chloride, serum [...] % 11.6-14.8 platelet count 240 10^3/MM^3 10*3/mm3 456-588 2021/11/11 leukocyte count, blood 9.6 10^3/MM^3 10*3/mm3 4.6-10.2 [...] Acid - Chemistry cholesterol, serum 187 mg/dL 370-305 6539/06/14 triglyceride, serum, fasting 246 mg/dL 30-200 HDL [...] 4.7 mg/dL 2.6-7.2 cholesterol, serum 142 mg/dL 386-161 4045/06/26 triglyceride, serum, fasting 272 mg/dL 30-200 HDL [...] negative Encounters Code Encounter Date Provider Facility CPT-45318 Level 3 Est. Patient 16:27:51 CDT Mima Erazo [facility] CPT-21160 Level 3 Est. Patient 14:39:00 MARTIAL ARTS INSTRUCTOR Vanessa Hickey MD [facility]-28446 Level 2 Est. Patient 18:43:34 CDT Mima Erazo [facility] CPT-37421 Level 3 Est. Patient 16:22:09 CDT Cherelle Avila [facility] CPT-72494 Level 4 Est. Patient 17:55:14 CDT Mima Erazo [facility] CPT-52470 Level 2 Est. Patient 17:13:21 CDT Alina Castaneda MD PhD [facility] CPT-28867 Level 3 Est. Patient 14:46:15 CDT Vanessa Hickey MD [facility]-50514 Level 3 Est. Patient 09:34:56 CDT Alina Castaneda MD PhD [facility]04457 Level 3 Est. Patient 21:40:19 CDT Mima Erazo [facility] CPT-81171 Level 3 Est. Patient 09:26:40 CDT Marvel Charles [facility]-72240 Level 3 Est. Patient 12:36:43 CDT Vanessa Hickey MD [facility]-40054 Level 3 Est. Patient 12:57:49 CDT Vanessa Hickey MD [facility]-31112 Level 3 Est. Patient 00:28:25 CDT Alina Castaneda MD [facility]90337 Level 2 Est. Patient 12:52:14 CDT Alina Castaneda MD [facility]78548 Level 3 Est. Patient 11:51:18 MARTIAL ARTS INSTRUCTOR Alina Castaneda MD [facility]14564 Level 3 Est. Patient 10:09:22 MARTIAL ARTS INSTRUCTOR Alina Castaneda MD [facility]24871 Level 3 Est. Patient 14:36:26 MARTIAL ARTS INSTRUCTOR Marvel Charles [facility]-31542 Level 3 Est. Patient 13:34:47 MARTIAL ARTS INSTRUCTOR Alina Castaneda MD [facility]35353 Level 3 Est. Patient 19:52:08 MARTIAL ARTS INSTRUCTOR Alina Castaneda MD [facility]16082 Level 3 Est. Patient 10:01:51 MARTIAL ARTS INSTRUCTOR Marvel Charles [facility]-25173 Level 3 Est. Patient 21:54:06 CDT Vanessa Hickey MD [facility]-51745 Level 3 Est. Patient 08:54:46 CDT Alina Castaneda MD [facility]97412 Level 3 Est. Patient 09:32:11 CDT Marvel Charles [facility]49908 Level 3 Est. Patient 12:02:49 CDT Alina Castaneda MD [facility]06695 Level 3 Est. Patient 19:17:33 CDT Alina Castaneda MD [facility]-63311 Level 3 Est. Patient 13:19:10 CDT Marvel Gurdeepajayestela [facility]-62195 Level 3 Est. Patient 08:20:05 CDT Alina Castaneda MD [facility]-97146 Level 3 Est. Patient 15:17:18 CDT Alina Castaneda MD [facility]-25669 Level 3 Est. Patient 14:25:36 MARTIAL ARTS INSTRUCTOR [facility]-96782 Level 3 Est. Patient 10:09:15 MARTIAL ARTS INSTRUCTOR [facility] Level [facility] Est. Patient 21:28:43 CDT Alina Castaneda MD [facility]-63660 Level 3 Est. Patient 15:20:11 CDT [facility]-86202 Level 4 Est. Patient 19:08:12 CDT Alina Castaneda MD [facility]-80311 Level 3 Est. Patient 15:06:39 CDT Marvel Araceli [facility]-76559 Level 4 Est. Patient 17:48:15 CDT Alina Castaneda MD [facility]-14578 Level 3 Est. Patient 14:53:49 CDT Alina Castaneda MD [facility]-87777 Level 3 Est. Patient 09:35:16 CDT Alina Castaneda MD [facility]-61597 Level 3 Est. Patient 12:23:22 CDT Alina Castaneda MD [facility]-77512 Level 3 Est. Patient 16:19:15 CDT Alina Castaneda MD [facility]-68072 Level 3 Est. Patient 21:39:56 MARTIAL ARTS INSTRUCTOR Alina Castaneda MD [facility]-10452 Level 4 Est. Patient 14:12:56 MARTIAL ARTS INSTRUCTOR Alina Castaneda MD [facility]-82267 Level 2 Est. Patient 15:34:57 MARTIAL ARTS INSTRUCTOR Alina Castaneda MD [facility]-20961 Level 3 Est. Patient 12:17:04 MARTIAL ARTS INSTRUCTOR Alina Castaneda MD [facility]-26132 Level 3 Est. Patient 09:18:18 MARTIAL ARTS INSTRUCTOR [facility]-75608 Level 2 Est. Patient 21:50:24 CDT Alina Castaneda MD [facility]-11654 Level 3 Est. Patient 09:17:28 CDT Marvel Charles [facility]-26756 Level 4 Est. Patient 18:54:02 CDT Alina Castaneda MD [facility]-46710 Level 3 Est. Patient 10:47:10 CDT Alina Castaneda MD [facility]-09335 Level 3 Est. Patient 09:22:20 CDT Marvel Charles [facility]-69098 Level 3 Est. Patient 16:39:43 CDT Marvel Charles [facility]-68566 Level 3 Est. Patient 16:05:16 CDT Alina Castaneda MD [facility]-93917 Level 3 Est. Patient 00:29:15 CDT Alina Castaneda MD PhD [facility] [facility] CPT-19761 Level 3 Est. Patient 10:49:22 [employer] [facility] CPT-68690 Level 3 Est. Patient 21:30:19 [employer] Alina Castaneda MD PhD [facility] CPT-17081 Level 4 Est. Patient 17:04:11 [employer] [facility] CPT-98647 Level 3 Est. Patient 15:34:11 [employer] [facility] CPT-93167 Level 2 Est. Patient 12:51:58 [employer] Alina Castaneda MD [facility] CPT-63206 Level 3 Est. Patient 13:20:01 [employer] Alina Castaneda MD PhD [facility] CPT-66679 Level 3 Est. Patient 09:23:35 CDT Alina Castaneda MD PhD [facility] Procedures Code Procedure Name Date Entry Date Standard Description CPT-32876 Bladder Scan 14:39:01 [employer] CPT-TCMM Transitional Care Mgmt-Moderate 10:30:19 [employer] CPT-57887 Bladder Scan 12:36:44 CDT CPT-88109 Bladder Scan 21:54:06 CDT CPT-G0008 Administration of Influenza Virus Vaccine 13:05:26 CDT CPT-49540 Fluzone Quadrivalent Intramuscular Suspension 0.5 ML 13: 05:26 CDT CPT-47747 Administration single or combination vaccine inc oral 11 :49:51 CDT CPT-01548 Pneumovax 11:49:51 CDT CPT-54592 Ribs unilateral 2V 12:37:22 [employer] CPT-58828 Chest 2V Frontal and Lat 17:15:26 CDT CPT-19476 Abx/Therapy Injection 18:54:02 CDT CPT-J0696 Rocephin 1000 mg (Ceftriaxone) 16:00:32 CDT CPT-26923 Chest 2V Frontal and Lat 15:26:45 CDT CPT-61790 Chest 2V Frontal and Lat 10:23:27 CDT CPT-98895 Venipuncture Draw Fee 10:11:00 CDT CPT-78612 Administration single or combination vaccine inc oral 11 :56:38 CDT CPT-32322 Influenza split virus > age 3 11:56:38 CDT CPT-80789 Venipuncture Draw Fee 08:49:54 [employer] CPT-05391 EKG Trac and Interp 17:54:19 [employer]
--- OUTSIDE RECORDS SUMMARY | 2018-07-02 17:43 | XMS REPORT | Clinical Summary ---
Author Author Admin, TERELL Organization [facility] [employer] Address Unknown Phone Unavailable Allergies, Adverse Reactions, 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 Erazo EPIC ANESTHESIA ANALYST Benign paroxysmal positional vertigo Vertigo, benign paroxysmal position 386.11 Inactive Mima Erazo EPIC ANESTHESIA ANALYST Benign paroxysmal positional vertigo High-risk sexual behavior V69.2 Active Alina Castaneda MD PhD High-risk sexual behavior Erectile dysfunction 302.72 Active Alina Castaneda MD PhD Psychosexual dysfunction with inhibited sexual excitement Constipation 564.00 Active Alina Castaneda MD PhD Constipation, unspecified Skin lesion 709.9 Active Alina Castaneda MD PhD Unspecified disorder of skin and subcutaneous tissue Malaise and fatigue 780.79 Active Cherelle Speaks EPIC ANESTHESIA ANALYST Other malaise and fatigue Diarrhea 787.91 Active Cherelle Speaks EPIC ANESTHESIA ANALYST Diarrhea PHARYNGITIS 462 Active Cherelle Speaks EPIC ANESTHESIA ANALYST Acute pharyngitis Colitis 558.9 Active Mima Erazo EPIC ANESTHESIA ANALYST Other and unspecified noninfectious gastroenteritis and [...] Castaneda MD PhD Hypoglycemia ICD-251.2 Inactive Alina Castanead MD PhD Dizziness ICD-780.4 Inactive Alina Castaneda [...] LANCETS 30G MISC 3x a day LANCETS 76144803028 Active Marvel MARROQUIN Active TRUE METRIX METER W/DEVICE KIT Check blood sugars 3x/day BLOOD GLUCOSE MONITORING SUPPL 07407961734 Active Marvel MARROQUIN Active TRUE METRIX BLOOD GLUCOSE TEST INVITR STRP Check blood sugars 3x/day. GLUCOSE BLOOD 49161574476 Active Maljohn Mackenzieglari LABORATORY OPERATIONS COORDINATOR Active VITAMIN D 2000 UNIT ORAL CAPS Take one by mouth daily CHOLECALCIFEROL 22603521460 Active Mima Yokum EPIC ANESTHESIA ANALYST Active LATUDA 60 MG ORAL TABS Take one by mouth daily LURASIDONE HCL 74371378381 No Longer Active Mima Yokum EPIC ANESTHESIA ANALYST Active HUMALOG KWIKPEN 100 UNIT/ML SC SOPN sliding scale if needed INSULIN LISPRO (HUMAN) 20811187052 Active Mima Yokum EPIC ANESTHESIA ANALYST Active MORPHINE SULFATE 30 MG ORAL TABS by mouth twice a day MORPHINE SULFATE 46086383810 Active Mima Fierroum EPIC ANESTHESIA ANALYST Active TRAZODONE HCL 100 MG TABS 1 every night to prevent headaches TRAZODONE HCL 89705170695 Active Gabrielle Madl ANALYTICAL RESEARCH PROGRAM MANAGER Active LATUDA 60 MG ORAL TABS 1 tab daily LURASIDONE HCL 84098965185 Active Gabrielle Madl ANALYTICAL RESEARCH PROGRAM MANAGER Active CLONAZEPAM 1 MG TABS 1 pill by mouth three times daily CLONAZEPAM 64786706320 Active Gabrielle Madl ANALYTICAL RESEARCH PROGRAM MANAGER Active [facility] MILK OF MAGNESIA 400 MG/5ML ORAL SUSP 30ml by mouth bid prn MAGNESIUM HYDROXIDE 64158051839 Active Mason Loredo MD Active TYLENOL 8 HOUR 650 MG ORAL CR-TABS 1 tab QID prn ACETAMINOPHEN 21013167980 Active Mason Loredo MD Active MYLANTA GAS RELIEF MAXIMUM STR 125 MG ORAL CAPS 30cc every 4 hours prn 12/01 SIMETHICONE 40329506466 Active Mason Loredo MD Active IMODIUM A-D 2 MG ORAL TABS 1 tab QID as needed LOPERAMIDE HCL 82453758007 Active Mason Loredo MD Active FLUVOXAMINE MALEATE 50 MG ORAL TABS 1 tab by mouth daily FLUVOXAMINE MALEATE 77068939646 Active Mason Loredo MD Active TRAVATAN Z 0.004 % SOLN 1 gtt each eye daily TRAVOPROST 57054411526 No Longer Active Mason Loredo MD Active LISINOPRIL 20 MG TABS 1 BID LISINOPRIL 90559081189 No Longer Active Mason Loredo MD Active LEVEMIR FLEXTOUCH 100 UNIT/ML SC SOPN 60 units SQ each evening, for diabetes INSULIN DETEMIR 23776431601 Active Crystal Nicholson Active ZOLPIDEM TARTRATE 10 MG TABS take at bedtime ZOLPIDEM TARTRATE 22173605090 No Longer Active Mason Loredo MD Active HYDROCODONE-ACETAMINOPHEN 5-325 MG TABS 2 tabs by mouth three times daily for pain HYDROCODONE-ACETAMINOPHEN 36290364912 No Longer Active Mason Loredo MD Active ZOFRAN 4 MG TABS 1 po q4hr PRN Nausea ONDANSETRON HCL 00165493860 No Longer Active Mason Loredo MD Active LOMOTIL 2.5-0.025 MG ORAL TABS take 1-2 tabs PO after each stool, no more than 8 in 24 hours DIPHENOXYLATE-ATROPINE 04382819168 No Longer Active Mason Loredo MD Active COLACE 100 MG CAPS 1 pill by mouth twice daily, for constipation DOCUSATE SODIUM 95958611744 No Longer Active Mimacecily Erazo APRN Active FLONASE ALLERGY RELIEF 50 MCG/ACT NASAL SUSP One spray each nostril BID x 1 week then daily FLUTICASONE PROPIONATE 09506302948 Active Mimacecily Fierroum EPIC ANESTHESIA ANALYST Active BD PEN NEEDLE MINI U/F 31G X 5 MM MISC 4 a day INSULIN PEN NEEDLE 02854607724 Active Maljohn Ziglari LABORATORY OPERATIONS COORDINATOR Active AMITIZA 24 MCG ORAL CAPS Take one capsule BID for constipation LUBIPROSTONE 71478304312 Active Mima Yokum EPIC ANESTHESIA ANALYST Active TRUEPLUS LANCETS 30G MISC 3 a day LANCETS 18852625748 Active Maljohn Ziglari LABORATORY OPERATIONS COORDINATOR Active TOLTERODINE TARTRATE 2 MG TABS 1 pill twice daily, for bladder TOLTERODINE TARTRATE 58623952168 No Longer Active Vanessa Hickey MD Active AMITIZA 24 MCG ORAL CAPS Take one capsule BID for constipation. LUBIPROSTONE 75664132562 No Longer Active Vanessa Hickey MD Active FLUVOXAMINE MALEATE 100 MG ORAL TABS take one tab every AM et HS, and take 1/ 2 tab at noon FLUVOXAMINE MALEATE 41503575426 Active Grace ROJAS Active METOPROLOL SUCCINATE 100 MG [id number]-QAD 1 by mouth daily for blood pressure METOPROLOL SUCCINATE 30751238664 No Longer Active Grace Azam RMA Active METFORMIN HCL ER 500 MG [id number]-BOJ Take three tablets by mouth everyday METFORMIN HCL 95631787982 No Longer Active Grace Azam RMA Active LOVAZA 1 GM CAPS 4 daily (for triglycerides) OMEGA-3- ACID ETHYL ESTERS 57212826242 No Longer Active Grace Azam RMA Active TRAZODONE HCL 100 MG ORAL TABS 1 tab by mouth for sleep TRAZODONE HCL 59560038352 No Longer Active Grace Azam RMA Active NOVOFINE 32G X 6 MM MISC use one four times per day INSULIN PEN NEEDLE 16374784345 No Longer Active Grace Azam RMA Active BACTROBAN 2 % CREAM Apply to affected area BID for up to 10 days MUPIROCIN CALCIUM 00118680800 No Longer Active Rgace Azam RMA Active KEFLEX 500 MG CAP 1 po BID x 7 days CEPHALEXIN 90896497894 No Longer Active Cherelle Avila EPIC ANESTHESIA ANALYST Active FLUVOXAMINE MALEATE 100 MG TABS Take one (1) tablet by mouth am, 1/2 at noon FLUVOXAMINE MALEATE 47561668811 No Longer Active Mima Erazo APRN Active CORICIDIN HBP CONGESTION/COUGH 10-200 MG ORAL CAPS Take as directed on box as needed for cold/flu symptoms DEXTROMETHORPHAN-GUAIFENESIN 99104811413 Active Cherelle Avila EPIC ANESTHESIA ANALYST Active OMEGA-3 300 MG ORAL CAPS 4 caps by mouth daily OMEGA-3 FATTY ACIDS 02996007528 Active Mima Erazo EPIC ANESTHESIA ANALYST Active FLUVOXAMINE MALEATE 100 MG ORAL TABS Take 1/2 tab at noon FLUVOXAMINE MALEATE 48669639216 No Longer Active Cherelle Avila EPIC ANESTHESIA ANALYST Active [facility] LUBRICANT EYE DROPS 0.4-0.3 % OPHTH SOLN POLYETHYL GLYCOL-PROPYL GLYCOL 52638644312 Active Mimacecily Erazo APRN Active MIRALAX POWD 17g by mouth daily, for constipation POLYETHYLENE GLYCOL 3350 33206999236 Active Alina Castaneda MD PhD Active TRUETEST TEST STRP check blood sugars 3x/day GLUCOSE BLOOD 05443177983 Active Maljohn Ziglari LABORATORY OPERATIONS COORDINATOR Active ACCU-CHEK ROSA UZMA Use device to check blood sugars BLOOD GLUCOSE MONITORING SUPPL 69611241430 No Longer Active Maliheh Ziglari LABORATORY OPERATIONS COORDINATOR Active ACCU-CHEK ROSA INVITR STRP use strips with device to check blood sugars 3 times daily GLUCOSE BLOOD 01273847697 No Longer Active Mallashondaeh 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 LABORATORY OPERATIONS COORDINATOR Active VERAPAMIL HCL ER 180 MG ORAL CR-TABS 1 pill by mouth twice daily, for migraine prevention VERAPAMIL HCL 53350797677 Active Mima Erazo EPIC ANESTHESIA ANALYST Active CYCLOBENZAPRINE HCL 10 MG TABS 1 tablet by mouth three times daily, scheduled CYCLOBENZAPRINE HCL 91100009250 No Longer Active Alina Castaneda MD PhD Active HUMALOG 100 UNIT/ML SOLN Take 20 units with breakfast, 10u with lunch and suppetr. INSULIN LISPRO (HUMAN) 20167777206 No Longer Active Alina Castaneda MD PhD Active TRUETEST TEST STRP check sugars 4x/day GLUCOSE BLOOD 88948868261 No Longer Active Alina Castaneda MD PhD Active MORPHINE SULFATE 30 MG TABS 1 pill by mouth twice daily, for pain MORPHINE SULFATE 10348771353 No Longer Active Mason Loredo MD Active ACYCLOVIR 400 MG ORAL TABS 1 pill three times daily x 5 days, for cold sore outbreak ACYCLOVIR 62214220214 No Longer Active Alina Castaneda MD PhD Active PENICILLIN V POTASSIUM 500 MG TABS 1 pill by mouth three times daily PENICILLIN V POTASSIUM 42031592204 No Longer Active Alina Castaneda MD PhD Active UROXATRAL 10 MG [id number]-MFF Take 1 tablet by mouth daily ALFUZOSIN HCL 59414912966 No Longer Active Alina Castaneda MD PhD Active THIOTHIXENE 5 MG CAPS by mouth twice a day THIOTHIXENE 84783550156 No Longer Active Alina Castaneda MD PhD Active ZYPREXA 7.5 MG TABS 1 at HS OLANZAPINE 13318243603 No Longer Active Alina Castaneda MD PhD Active BD INSULIN SYRINGE 28G X 1/2" 1 ML MISC 1 four times per day INSULIN SYRINGE-NEEDLE U-100 83231831647 Active Maljohn Ziglari LABORATORY OPERATIONS COORDINATOR Active DETROL LA 4 MG [id number] Take 1 tablet by mouth daily TOLTERODINE TARTRATE 74386280345 No Longer Active Alina Castaneda MD PhD Active TERESE CONTOUR TEST STRP monitor blood sugars 3x/day GLUCOSE BLOOD 58304206022 No Longer Active Alina Castaneda MD PhD Active EQL TRUETEST TEST STRP Test blood sugar TID GLUCOSE BLOOD 81763483750 No Longer Active Alina Castaneda MD PhD Active FLUTICASONE PROPIONATE 50 MCG/ACT SUSP 2 sprays each nostril qDay x 30 days FLUTICASONE PROPIONATE 77009830911 No Longer Active Alina Castaneda MD PhD Active IBUPROFEN 200 MG TABS 1 Q 6 hr. PRN IBUPROFEN 49786712732 No Longer Active Alina Castaneda MD PhD Active NIACIN ER 500 MG CR-TABS 4 qHS (for triglycerides) NIACIN 46178461421 No Longer Active Alina Castaneda MD PhD Active ALFUZOSIN HCL ER 10 MG [id number] 1 tablet daily ALFUZOSIN HCL 44968129542 Active Mima Yokum EPIC ANESTHESIA ANALYST Active SAPHRIS 5 MG SUBL by mouth twice a day ASENAPINE MALEATE 01524426211 No Longer Active Marvel Mackenzieglari LABORATORY OPERATIONS COORDINATOR Active ACETAMINOPHEN 500 MG TABS 2 Q 6 hr. PRN ACETAMINOPHEN 38317693064 No Longer Active Maliheh Ziglari LABORATORY OPERATIONS COORDINATOR Active ORPHENADRINE CITRATE ER 100 MG KR32B-OFA 1 every 12 hr. as needed ORPHENADRINE CITRATE 33223272557 No Longer Active Alina Castaneda MD PhD Active NIACIN CR 500 MG CR-TABS 2 qHS NIACIN 49736429225 No Longer Active Alina Castaneda MD PhD Active AMOXICILLIN 500 MG CAPS 2 po BID x 10 days AMOXICILLIN 72706824162 No Longer Active Alina Castaneda MD PhD Active HYDROCODONE-ACETAMINOPHEN 7.5-325 MG TABS 1 four times a day as needed for pain HYDROCODONE-ACETAMINOPHEN 84292762687 No Longer Active Alina Castaneda MD PhD Active DOXEPIN HCL 10 MG CAPS Take 1 tablet by mouth daily DOXEPIN HCL 62542424252 No Longer Active Salina Han A Active NAVANE 10 MG CAPS 1/2 tablet twice a day THIOTHIXENE No Longer Active Salina ROBBINSA Active CYCLOBENZAPRINE HCL 10 MG TABS 1/2 tablet by mouth every 8 hours as needed for muscle spasms CYCLOBENZAPRINE HCL 93690219980 No Longer Active Alina Castaneda MD PhD Active BACTROBAN 2 % CREAM apply to ear and nose twice daily MUPIROCIN CALCIUM 73597237975 No Longer Active Alina Castaneda MD PhD Active HYDROCODONE-ACETAMINOPHEN 5-325 MG TABS take one tablet by mouth every four hours as needed for pain HYDROCODONE-ACETAMINOPHEN 20422543927 No Longer Active Alina Castaneda MD PhD Active ZYPREXA 5 MG TABS take one tablet by mouth every evening OLANZAPINE 13382944211 No Longer Active Alina Castaneda MD PhD Active ALBUTEROL SULFATE 0.083 % NEBU SOLN one vial per nebulizer TID and PRN cough/ soa ALBUTEROL SULFATE 56602011516 No Longer Active Alina Castaneda MD PhD Active GUAIFENESIN 600 MG IN33Z-QIN 1 tablet by mouth twice daily if needed for cough GUAIFENESIN 13841068436 No Longer Active Marvel MARROQUIN Active AZITHROMYCIN 500 MG SOLR 1 po q day AZITHROMYCIN 34509036221 No Longer Active Alina Castaneda MD PhD Active PROMETHAZINE-CODEINE 6.25-10 MG/5ML SYRP 1 tsp po q 6 hours prn cough PROMETHAZINE-CODEINE 02545240464 No Longer Active Alina Castaneda MD PhD Active CEFDINIR 300 MG CAPS by mouth twice a day CEFDINIR 31215025800 No Longer Active Alina Castaneda MD PhD Active METFORMIN HCL 500 MG [id number] Take 3 tablets by mouth everyday METFORMIN HCL 52054361181 No Longer Active Alina Castaneda MD PhD Active LEVEMIR 100 UNIT/ML SOLN 90 units SQ qHS INSULIN DETEMIR 33139442260 No Longer Active Marvel MARROQUIN Active TOPROL XL 100 MG OH39A-VIE 1 @ HS METOPROLOL SUCCINATE 32670663369 No Longer Active Marvel MARROQUIN Active ALLOPURINOL 300 MG TABS Take one by mouth daily ALLOPURINOL 73395556358 Active Mima Jeffliudmila EPIC ANESTHESIA ANALYST Active ZYPREXA 10 MG TABS Take one by mouth daily OLANZAPINE 70817783368 No Longer Active Alina Castaneda MD PhD Active NOVOLOG 100 UNIT/ML SOLN 40 units with every meal INSULIN ASPART 09114732670 No Longer Active Alina Castaneda MD PhD Active VERAPAMIL HCL CR 120 MG TAB CR 1 qPM VERAPAMIL HCL 17463623225 No Longer Active Salina Han [facility] Active ZYPREXA 15 MG TABS Take 1 tablet by mouth daily OLANZAPINE 44683549308 No Longer Active Marvel MARROQUIN Active ALBUTEROL SULFATE (2.5 MG/3ML) 0.083% NEBU 1 neb tid and prn cough ALBUTEROL SULFATE 02006991522 No Longer Active Alina Castaneda MD PhD Active LANTUS 100 UNIT/ML SOLN 60 units sq q hs INSULIN GLARGINE 79373596074 No Longer Active CRYSTAL Suarez Active ALBUTEROL SULFATE (2.5 MG/3ML) 0.083% NEBU 1 neb tid and prn cough ALBUTEROL SULFATE (2.5 MG/3ML) 0.083% NEBU 933462 ALBUTEROL SULFATE Inactive ZYPREXA 15 MG TABS Take 1 tablet by mouth daily ZYPREXA 15 MG TABS 689262 OLANZAPINE Inactive VERAPAMIL HCL CR 120 MG TAB CR 1 qPM VERAPAMIL HCL CR 120 MG TAB CR VERAPAMIL HCL Inactive ZYPREXA 10 MG TABS Take one by mouth daily ZYPREXA 10 MG TABS 245776 OLANZAPINE Inactive TOPROL XL 100 MG [id number] 1 @ HS TOPROL XL 100 MG ID64P-NAI METOPROLOL SUCCINATE Inactive LEVEMIR 100 UNIT/ML SOLN 90 units SQ qHS LEVEMIR 100 UNIT/ML SOLN INSULIN DETEMIR Inactive PROMETHAZINE-CODEINE 6.25-10 MG/5ML SYRP 1 tsp po q 6 hours prn cough PROMETHAZINE-CODEINE 6.25-10 MG/5ML SYRP 502527 PROMETHAZINE- CODEINE Inactive GUAIFENESIN 600 MG TR24X-HLG 1 tablet by mouth twice daily if needed for cough GUAIFENESIN 600 MG BT70W-JWK GUAIFENESIN Inactive ALBUTEROL SULFATE 0.083 % NEBU SOLN one vial per nebulizer TID and PRN cough/ soa ALBUTEROL SULFATE 0.083 % NEBU SOLN 042017 ALBUTEROL SULFATE Inactive ZYPREXA 5 MG TABS take one tablet by mouth every evening ZYPREXA 5 MG TABS 618970 OLANZAPINE Inactive HYDROCODONE-ACETAMINOPHEN 5-325 MG TABS take one tablet by mouth every four hours as needed for pain HYDROCODONE-ACETAMINOPHEN 5-325 MG TABS 927844 HYDROCODONE-ACETAMINOPHEN Inactive BACTROBAN 2 % CREAM apply to ear and nose twice daily BACTROBAN 2 % CREAM 507450 MUPIROCIN CALCIUM Inactive CYCLOBENZAPRINE HCL 10 MG TABS 1/2 tablet by mouth every 8 hours as needed for muscle spasms CYCLOBENZAPRINE HCL 10 MG TABS 595312 CYCLOBENZAPRINE HCL Inactive NAVANE 10 MG CAPS 1/2 tablet twice a day NAVANE 10 MG CAPS THIOTHIXENE Inactive DOXEPIN HCL 10 MG CAPS Take 1 tablet by mouth daily DOXEPIN HCL 10 MG CAPS 1543503 DOXEPIN HCL Inactive HYDROCODONE-ACETAMINOPHEN 7.5-325 MG TABS 1 four times a day as needed for pain HYDROCODONE-ACETAMINOPHEN 7.5-325 MG TABS 538434 HYDROCODONE-ACETAMINOPHEN Inactive NIACIN CR 500 MG CR-TABS 2 qHS NIACIN CR 500 MG CR- TABS NIACIN Inactive ORPHENADRINE CITRATE ER 100 MG VB96Z-VKC 1 every 12 hr. as needed ORPHENADRINE CITRATE ER 100 MG [id number] ORPHENADRINE CITRATE Inactive ACETAMINOPHEN 500 MG TABS 2 Q 6 hr. PRN ACETAMINOPHEN 500 MG TABS 324266 ACETAMINOPHEN Inactive SAPHRIS 5 MG SUBL by mouth twice a day SAPHRIS 5 MG SUBL ASENAPINE MALEATE Inactive NIACIN ER 500 MG CR-TABS 4 qHS (for triglycerides) NIACIN ER 500 MG CR-TABS NIACIN Inactive IBUPROFEN 200 MG TABS 1 Q 6 hr. PRN IBUPROFEN 200 MG TABS 849347 IBUPROFEN Inactive FLUTICASONE PROPIONATE 50 MCG/ACT SUSP 2 sprays each nostril qDay x 30 days FLUTICASONE PROPIONATE 50 MCG/ACT SUSP 1380451 FLUTICASONE PROPIONATE Inactive EQL TRUETEST TEST STRP Test blood sugar TID EQL TRUETEST TEST STRP GLUCOSE BLOOD Inactive TERESE CONTOUR TEST STRP monitor blood sugars 3x/day TERESE CONTOUR TEST STRP GLUCOSE BLOOD Inactive DETROL LA 4 MG FK57Z-NHA Take 1 tablet by mouth daily DETROL LA 4 MG TK28D-DOR TOLTERODINE TARTRATE Inactive ZYPREXA 7.5 MG TABS 1 at HS ZYPREXA 7.5 MG TABS 220329 OLANZAPINE Inactive THIOTHIXENE 5 MG CAPS by mouth twice a day THIOTHIXENE 5 MG CAPS 572707 THIOTHIXENE Inactive UROXATRAL 10 MG WY65G-DDZ Take 1 tablet by mouth daily UROXATRAL 10 MG AD12J-ARD ALFUZOSIN HCL Inactive ACYCLOVIR 400 MG ORAL TABS 1 pill three times daily x 5 days, for cold sore outbreak ACYCLOVIR 400 MG ORAL TABS 071318 ACYCLOVIR Inactive TRUETEST TEST STRP check sugars 4x/day TRUETEST TEST STRP GLUCOSE BLOOD Inactive HUMALOG 100 UNIT/ML SOLN Take 20 units with breakfast, 10u with lunch and suppetr. HUMALOG 100 UNIT/ML SOLN INSULIN LISPRO ( HUMAN) Inactive CYCLOBENZAPRINE HCL 10 MG TABS 1 tablet by mouth three times daily, scheduled CYCLOBENZAPRINE HCL 10 MG TABS 538506 CYCLOBENZAPRINE HCL Inactive ACCU-CHEK ROSA INVITR STRP use strips with device to check blood sugars 3 times daily ACCU-CHEK ROSA INVITR STRP GLUCOSE BLOOD Inactive ACCU-CHEK ROSA UZMA Use device to check blood sugars ACCU-CHEK ROSA UZMA BLOOD GLUCOSE MONITORING SUPPL Inactive FLUVOXAMINE MALEATE 100 MG ORAL TABS Take 1/2 tab at noon FLUVOXAMINE MALEATE 100 MG ORAL TABS 400643 FLUVOXAMINE MALEATE Inactive FLUVOXAMINE MALEATE 100 MG TABS Take one (1) tablet by mouth am, 1/2 at noon FLUVOXAMINE MALEATE 100 MG TABS 489103 FLUVOXAMINE MALEATE Inactive BACTROBAN 2 % CREAM Apply to affected area BID for up to 10 days BACTROBAN 2 % CREAM 960833 MUPIROCIN CALCIUM Inactive NOVOFINE 32G X 6 MM MISC use one four times per day NOVOFINE 32G X 6 MM MISC INSULIN PEN NEEDLE Inactive TRAZODONE HCL 100 MG ORAL TABS 1 tab by mouth for sleep TRAZODONE HCL 100 MG ORAL TABS 457912 TRAZODONE HCL Inactive LOVAZA 1 GM CAPS 4 daily (for triglycerides) LOVAZA 1 GM CAPS 197815 MFUEF-7-WLCX ETHYL ESTERS Inactive METFORMIN HCL ER 500 MG ME73H-UTD Take three tablets by mouth everyday METFORMIN HCL ER 500 MG QD18R-ZEP METFORMIN HCL Inactive METOPROLOL SUCCINATE 100 MG KV54R-UUP 1 by mouth daily for blood pressure METOPROLOL SUCCINATE 100 MG WD29V-NAQ METOPROLOL SUCCINATE Inactive AMITIZA 24 MCG ORAL CAPS Take one capsule BID for constipation. AMITIZA 24 MCG ORAL CAPS LUBIPROSTONE Inactive TOLTERODINE TARTRATE 2 MG TABS 1 pill twice daily, for bladder TOLTERODINE TARTRATE 2 MG TABS 548285 TOLTERODINE TARTRATE Inactive COLACE 100 MG CAPS 1 pill by mouth twice daily, for constipation COLACE 100 MG CAPS 5541905 DOCUSATE SODIUM Inactive LOMOTIL 2.5-0.025 MG ORAL TABS take 1-2 tabs PO after each stool, no more than 8 in 24 hours LOMOTIL 2.5-0.025 MG ORAL TABS 3367311 DIPHENOXYLATE-ATROPINE Inactive ZOFRAN 4 MG TABS 1 po q4hr PRN Nausea ZOFRAN 4 MG TABS 204595 ONDANSETRON HCL Inactive HYDROCODONE-ACETAMINOPHEN 5-325 MG TABS 2 tabs by mouth three times daily for pain HYDROCODONE-ACETAMINOPHEN 5-325 MG TABS 692732 HYDROCODONE-ACETAMINOPHEN Inactive ZOLPIDEM TARTRATE 10 MG TABS take at bedtime ZOLPIDEM TARTRATE 10 MG TABS 909649 ZOLPIDEM TARTRATE Inactive LISINOPRIL 20 MG TABS 1 BID LISINOPRIL 20 MG TABS 973012 LISINOPRIL Inactive TRAVATAN Z 0.004 % SOLN 1 gtt each eye daily TRAVATAN Z 0.004 % SOLN TRAVOPROST Inactive LATUDA 60 MG ORAL TABS Take one by mouth daily LATUDA 60 MG ORAL TABS LURASIDONE HCL Inactive CEFDINIR 300 MG CAPS by mouth twice a day CEFDINIR 300 MG CAPS 799412 CEFDINIR Inactive AZITHROMYCIN 500 MG SOLR 1 po q day AZITHROMYCIN 500 MG SOLR 25417605052 AZITHROMYCIN Inactive AMOXICILLIN 500 MG CAPS 2 po BID x 10 days AMOXICILLIN 500 MG CAPS 112610 AMOXICILLIN Inactive PENICILLIN V POTASSIUM 500 MG TABS 1 pill by mouth three times daily PENICILLIN V POTASSIUM 500 MG TABS 290249 PENICILLIN V POTASSIUM Inactive KEFLEX 500 MG CAP 1 po BID x 7 days KEFLEX 500 MG CAP 648734 CEPHALEXIN Inactive Immunizations Vaccine Administration Date Value [...] Fluvirin, Fluarix, Agriflu(>=18 yo)) Fluzone (>3 yrs.) [[id number]] Influenza, seasonal, injectable pneumococcal immunization administered Pneumovax [...] pressure, diastolic - 8462-4 77 mm[Hg] BP gacria blood pressure, systolic - 8480-6 125 mm[Hg] [...] Panel - Chemistry sodium, serum 138 mmol/L 709-051 7302/11/11 potassium, serum 4.7 mmol/L 3.5-5.2 chloride, serum [...] Acid - Chemistry cholesterol, serum 187 mg/dL 889-745 9659/06/14 triglyceride, serum, fasting 246 mg/dL 30-200 HDL [...] negative Encounters Code Encounter Date Provider Facility CPT-59825 Level 3 Est. Patient 16:52:51 CDT Vanessa Hickey MD [facility] CPT-34218 Level 3 Est. Patient 17:40:16 CDT Mima Kacey [facility] CPT-79351 Level 3 Est. Patient 14:34:52 CDT Vanessa Hickey MD [facility]-29751 Level 3 Est. Patient 16:27:51 CDT Mima Kacey [facility] CPT-54761 Level 3 Est. Patient 14:39:00 DRAW FURNACE TENDER Vanessa Hickey MD [facility] CPT-77394 Level 2 Est. Patient 18:43:34 CDT Mima Kacey [facility] CPT-06891 Level 3 Est. Patient 16:22:09 CDT Cherelle Avila [facility] CPT-51156 Level 4 Est. Patient 17:55:14 CDT Mima Kacey [facility] CPT-15771 Level 2 Est. Patient 17:13:21 CDT Alina Castaneda MD [facility] CPT-86297 Level 3 Est. Patient 14:46:15 CDT Vanessa Hickey MD [facility]-54077 Level 3 Est. Patient 09:34:56 CDT Alina Castaneda MD [facility]-43001 Level 3 Est. Patient 21:40:19 CDT Mima Erazo [facility] CPT-61657 Level 3 Est. Patient 09:26:40 CDT Marvel Charles [facility]-77433 Level 3 Est. Patient 12:36:43 CDT Vanessa Hickey MD [facility]-08066 Level 3 Est. Patient 12:57:49 CDT Vanessa Hickey MD [facility]-45222 Level 3 Est. Patient 00:28:25 CDT Alina Castaneda MD [facility]-30734 Level 2 Est. Patient 12:52:14 CDT Alina Castaneda MD [facility]-45087 Level 3 Est. Patient 11:51:18 DRAW FURNACE TENDER Alina Castaneda MD [facility]-55167 Level 3 Est. Patient 10:09:22 DRAW FURNACE TENDER Alina Castaneda MD [facility]-44646 Level 3 Est. Patient 14:36:26 DRAW FURNACE TENDER Marvel Charles [facility]-31039 Level 3 Est. Patient 13:34:47 DRAW FURNACE TENDER Alina Castaneda MD [facility]-02225 Level 3 Est. Patient 19:52:08 DRAW FURNACE TENDER Alina Castaneda MD [facility]-60094 Level 3 Est. Patient 10:01:51 DRAW FURNACE TENDER Marvel Charles [facility]-02838 Level 3 Est. Patient 21:54:06 CDT Vanessa Hickey MD [facility]-32509 Level 3 Est. Patient 08:54:46 CDT Alina Castaneda MD [facility]-11942 Level 3 Est. Patient 09:32:11 CDT Marvel Charles [facility]-01019 Level 3 Est. Patient 12:02:49 CDT Alina Castaneda MD [facility]15044 Level 3 Est. Patient 19:17:33 CDT Alina Castaneda MD [facility]-21429 Level 3 Est. Patient 13:19:10 CDT Marvel Charles [facility] CPT-94831 Level 3 Est. Patient 08:20:05 CDT Alina Castaneda MD [facility]-64735 Level 3 Est. Patient 15:17:18 CDT Alina Castaneda MD [facility]-25064 Level 3 Est. Patient 14:25:36 DRAW FURNACE TENDER Marvel Charles [facility] CPT-21843 Level 3 Est. Patient 10:09:15 DRAW FURNACE TENDER Marvel Charles [facility]-69847 Level 3 Est. Patient 21:28:43 CDT Alina Castaneda MD [facility]-04854 Level 3 Est. Patient 15:20:11 [facility] Est. Patient 19:08:12 CDT Alina Castaneda MD [facility]-35363 Level 3 Est. Patient 15:06:39 [facility] Level 4 Est. Patient 17:48:15 CDT Alina Castaneda MD [facility]-00340 Level 3 Est. Patient 14:53:49 CDT Alina Castaneda MD [facility]-48272 Level 3 Est. Patient 09:35:16 CDT Alina Castaneda MD [facility]-34669 Level 3 Est. Patient 12:23:22 CDT Alina Castaneda MD [facility]-41507 Level 3 Est. Patient 16:19:15 CDT Alina Castaneda MD [facility]-74461 Level 3 Est. Patient 21:39:56 DRAW FURNACE TENDER Alina Castaneda MD [facility]-90719 Level 4 Est. Patient 14:12:56 DRAW FURNACE TENDER Alina Castaneda MD [facility]65188 Level 2 Est. Patient 15:34:57 DRAW FURNACE TENDER Alina Castaneda MD [facility]-82576 Level 3 Est. Patient 12:17:04 DRAW FURNACE TENDER Alina Castaneda MD [facility]85284 Level 3 Est. Patient 09:18:18 DRAW FURNACE TENDER Marvel [facility]-71897 Level 2 Est. Patient 21:50:24 CDT Alina Castaneda MD [facility]-54781 Level 3 Est. Patient 09:17:28 CDT [facility]-00085 Level 4 Est. Patient 18:54:02 CDT Alina Castaneda MD [facility]-51497 Level 3 Est. Patient 10:47:10 CDT Alina Castaneda MD [facility]-51302 Level 3 Est. Patient 09:22:20 CDT [facility]-38094 Level 3 Est. Patient 16:39:43 CDT Marvel [facility]-24974 Level 3 Est. Patient 16:05:16 CDT Alina Castaneda MD [facility]33517 Level 3 Est. Patient 00:29:15 CDT Alina Castaneda MD [facility]00087 Level 3 Est. Patient 10:49:22 DRAW FURNACE TENDER [facility] CPT-15893 Level 3 Est. Patient 21:30:19 DRAW FURNACE TENDER Alina Castaneda MD PhD [facility] CPT-52882 Level 4 Est. Patient 17:04:11 DRAW FURNACE TENDER [facility]62188 Level 3 Est. Patient 15:34:11 DRAW FURNACE TENDER [facility] CPT[facility]30537 Level 2 Est. Patient 12:51:58 DRAW FURNACE TENDER Alina Castaneda MD PhD [facility] CPT-25076 Level 3 Est. Patient 13:20:01 DRAW FURNACE TENDER Alina Castaneda MD PhD [facility] CPT-60964 Level 3 Est. Patient 09:23:35 CDT Alina Castaneda MD PhD [facility] Procedures Code Procedure Name Date Entry Date Standard Description [facility]-TCM Transitional Care Mgmt-Moderate 10:25:31 CDT CPT-46985 Bladder Scan 14:34:53 CDT CPT-57304 Bladder Scan 14:39:01 DRAW FURNACE TENDER [facility] Transitional Care Mgmt-Moderate 10:30:19 DRAW FURNACE TENDER CPT-36621 Bladder Scan 12:36:44 CDT CPT-77414 Bladder Scan 21:54:06 CDT CPT-G0008 Administration of Influenza Virus Vaccine 13:05:26 CDT CPT-47362 Fluzone Quadrivalent Intramuscular Suspension 0.5 ML 13: 05:26 CDT CPT-49159 Administration single or combination vaccine inc oral 11 :49:51 CDT CPT-98409 Pneumovax 11:49:51 CDT CPT-76414 Ribs unilateral 2V 12:37:22 DRAW FURNACE TENDER CPT-69554 Chest 2V Frontal and Lat 17:15:26 CDT CPT-98716 Abx/Therapy Injection 18:54:02 CDT CPT-J0696 Rocephin 1000 mg (Ceftriaxone) 16:00:32 CDT CPT-67669 Chest 2V Frontal and Lat 15:26:45 CDT CPT-83221 Chest 2V Frontal and Lat 10:23:27 CDT CPT-63376 Venipuncture Draw Fee 10:11:00 CDT CPT-70417 Administration single or combination vaccine inc oral 11 :56:38 CDT CPT-94862 Influenza split virus > age 3 11:56:38 CDT CPT-44962 Venipuncture Draw Fee 08:49:54 DRAW FURNACE TENDER CPT-71350 EKG Trac and Interp 17:54:19 DRAW FURNACE TENDER
--- OUTSIDE RECORDS SUMMARY | 2018-07-02 17:45 | XMS REPORT | Clinical Summary ---
[...] positional vertigo 386.11 Active Mima Erazo PHARMACY ASSISTANT Benign paroxysmal positional vertigo Vertigo, benign paroxysmal position 386.11 Inactive Mima Erazo PHARMACY ASSISTANT Benign paroxysmal positional vertigo High-risk sexual behavior V69.2 Active Alina Castaneda MD PhD High-risk sexual behavior Erectile dysfunction 302.72 Active Alina Castaneda MD PhD Psychosexual dysfunction with inhibited sexual excitement Constipation 564.00 Active Alina Castaneda MD PhD Constipation, unspecified Skin lesion 709.9 Active Alina Castaneda MD PhD Unspecified disorder of skin and subcutaneous tissue Malaise and fatigue 780.79 Active Hcerelle Speaks PHARMACY ASSISTANT Other malaise and fatigue Diarrhea 787.91 Active Cherelle Speaks PHARMACY ASSISTANT Diarrhea PHARYNGITIS 462 Active Cherelle Speaks PHARMACY ASSISTANT Acute pharyngitis Colitis 558.9 Active Mima Erazo PHARMACY ASSISTANT Other and unspecified noninfectious gastroenteritis and colitis WOUND, OPEN, NOSE ICD-873.20 Inactive Alina Castaneda MD PhD DIABETES, TYPE 2 ICD-250.00 Inactive Alina Castaneda MD PhD HYPERTENSION ICD-401.9 Inactive Alina Castaneda MD PhD URI ICD-465.9 Inactive Alina Castaneda MD PhD CHEST PAIN ICD-786.50 Inactive Alina Castaneda MD PhD FH STROKE ICD-V17.1 Inactive Marvel Charles CURING OVEN TENDER FATIGUE ICD-780.79 Inactive Alina Castaneda MD PhD [...] SQ each evening, for diabetes INSULIN DETEMIR 43053076471 Active Salina ROJAS Active TRUEPLUS LANCETS 30G MISC 3 a day LANCETS 82289345840 Active Marvel MENDOZAP Active TOLTERODINE TARTRATE 2 MG TABS 1 pill twice daily, for bladder TOLTERODINE TARTRATE 74829243910 No Longer Active Vanessa Hickey MD Active AMITIZA 24 MCG ORAL CAPS Take one capsule BID for constipation. LUBIPROSTONE 42766435508 No Longer Active Vanessa Hickey MD Active LOMOTIL 2.5-0.025 MG ORAL TABS take 1-2 tabs PO after each stool, no more than 8 in 24 hours DIPHENOXYLATE-ATROPINE 86295234490 Active Grace ROJAS Active FLUVOXAMINE MALEATE 100 MG ORAL TABS take one tab every AM et HS, and take 1/ 2 tab at noon FLUVOXAMINE MALEATE 23366900857 Active Grace ROAJS Active METOPROLOL SUCCINATE 100 MG [id number]-[id number] 1 by mouth daily for blood pressure METOPROLOL SUCCINATE 34127268141 No Longer Active Grace Nelsonb RMA Active METFORMIN HCL ER 500 MG [id number]-YFF Take three tablets by mouth everyday METFORMIN HCL 77950948873 No Longer Active Grace Azam RMA Active LOVAZA 1 GM CAPS 4 daily (for triglycerides) OMEGA-3- ACID ETHYL ESTERS 11876073130 No Longer Active Grace Azam RMA Active TRAZODONE HCL 100 MG ORAL TABS 1 tab by mouth for sleep TRAZODONE HCL 86538692409 No Longer Active Grace Azam RMA Active NOVOFINE 32G X 6 MM MISC use one four times per day INSULIN PEN NEEDLE 76418114336 No Longer Active Grace Azam RMA Active BACTROBAN 2 % CREAM Apply to affected area BID for up to 10 days MUPIROCIN CALCIUM 20102694846 No Longer Active Grace Azam RMA Active ZOFRAN 4 MG TABS 1 po q4hr PRN [place] ONDANSETRON HCL 45533719906 Active Salina Han RMA Active KEFLEX 500 MG CAP 1 po BID x 7 days CEPHALEXIN 98434661573 No Longer Active Cherelle Speaks PHARMACY ASSISTANT Active FLUVOXAMINE MALEATE 100 MG TABS Take one (1) tablet by mouth am, 1/2 at noon FLUVOXAMINE MALEATE 94537064765 No Longer Active Mima Erazo PHARMACY ASSISTANT Active CORICIDIN HBP CONGESTION/COUGH 10-200 MG ORAL CAPS Take as directed on box as needed for cold/flu symptoms DEXTROMETHORPHAN-GUAIFENESIN 80758613376 Active Cherelle Speaks PHARMACY ASSISTANT Active OMEGA-3 300 MG ORAL CAPS 4 caps by mouth daily OMEGA-3 FATTY ACIDS 63925889925 Active Cherelle Speaks PHARMACY ASSISTANT Active FLUVOXAMINE MALEATE 100 MG ORAL TABS Take 1/2 tab at noon FLUVOXAMINE MALEATE 48303668749 No Longer Active Cherelle Avila PHARMACY ASSISTANT Active [facility] E[facility] DROPS 0.4-0.3 % OPHTH SOLN POLYETHYL GLYCOL-PROPYL GLYCOL 38945288050 Active Mima Erazo PHARMACY ASSISTANT Active CLONAZEPAM 1 MG TABS 1/2 pill by mouth three times daily CLONAZEPAM 06887416177 Active Alina Castaneda MD PhD Active MIRALAX POWD 17g by mouth daily, for constipation POLYETHYLENE GLYCOL 3350 98020018269 Active Alina Castaneda MD PhD Active HYDROCODONE-ACETAMINOPHEN 5-325 MG TABS 2 tabs by mouth three times daily for pain HYDROCODONE-ACETAMINOPHEN 81674438051 Active Mima Erazo PHARMACY ASSISTANT Active HUMALOG KWIKPEN 100 UNIT/ML SC SOPN 20 units with breakfast, 10 units with lunch, 10 units with dinner, for diabetes INSULIN LISPRO (HUMAN ) 50538315076 Active Alina Castaneda MD PhD Active LATUDA 120 MG ORAL TABS 1 pill by mouth nightly LURASIDONE HCL 94217899707 Active Alina Castaneda MD PhD Active COLACE 100 MG CAPS 1 pill by mouth twice daily, for constipation DOCUSATE SODIUM 13720716481 Active Alina Castaneda MD PhD Active TRUETEST TEST STRP check blood sugars 3x/day GLUCOSE BLOOD 41454045414 Active Marvel Thurstonari CURING OVEN TENDER Active ACCU-CHEK ROSA UZMA Use device to check blood sugars BLOOD GLUCOSE MONITORING SUPPL 27821507689 No Longer Active Marvel Mackenzieglari LOPEZ Active ACCU-CHEK ROSA INVITR STRP use strips with device to check blood sugars 3 times daily GLUCOSE BLOOD 48721898259 No Longer Active Marvel MENDOZAP Active VERAPAMIL HCL ER 180 MG ORAL CR-TABS 1 pill by mouth twice daily, for migraine prevention VERAPAMIL HCL 22458051668 Active Alina Castaneda MD PhD Active CYCLOBENZAPRINE HCL 10 MG TABS 1 tablet by mouth three times daily, scheduled CYCLOBENZAPRINE HCL 83240769269 No Longer Active Alina Castaneda MD PhD Active HUMALOG 100 UNIT/ML SOLN Take 20 units with breakfast, 10u with lunch and suppetr. INSULIN LISPRO (HUMAN) 33471177838 No Longer Active Alnia Castaneda MD PhD Active TRUETEST TEST STRP check sugars 4x/day GLUCOSE BLOOD 57215789779 No Longer Active Alina Castaneda MD PhD Active MORPHINE SULFATE 30 MG TABS 1 pill by mouth twice daily, for pain MORPHINE SULFATE 06841018919 Active Mima Erazo PHARMACY ASSISTANT Active ACYCLOVIR 400 MG ORAL TABS 1 pill three times daily x 5 days, for cold sore outbreak ACYCLOVIR 85510200910 No Longer Active Alina Castaneda MD PhD Active PENICILLIN V POTASSIUM 500 MG TABS 1 pill by mouth three times daily PENICILLIN V POTASSIUM 69228051927 No Longer Active Alina Castaneda MD PhD Active UROXATRAL 10 MG WE00H-UXF Take 1 tablet by mouth daily ALFUZOSIN HCL 05095601018 No Longer Active Alina Castaneda MD PhD Active THIOTHIXENE 5 MG CAPS by mouth twice a day THIOTHIXENE 04013250227 No Longer Active Alina Castaneda MD PhD Active ZYPREXA 7.5 MG TABS 1 at HS OLANZAPINE 77806439494 No Longer Active Alina Castaneda MD PhD Active BD INSULIN SYRINGE 28G X 1/2" 1 ML MISC 1 four times per day INSULIN SYRINGE-NEEDLE U-100 44041500347 Active [facility] Gurdeepglestela [facility] Active DETROL LA 4 MG [id number]-BAD Take 1 tablet by mouth daily TOLTERODINE TARTRATE 80500907496 No Longer Active Alina Castaneda MD PhD Active TERESE CONTOUR TEST STRP monitor blood sugars 3x/day GLUCOSE BLOOD 60233760685 No Longer Active Alina Castaneda MD PhD Active EQL TRUETEST TEST STRP Test blood sugar TID GLUCOSE BLOOD 10108626340 No Longer Active Alina Castaneda MD PhD Active FLUTICASONE PROPIONATE 50 MCG/ACT SUSP 2 sprays each nostril qDay x 30 days FLUTICASONE PROPIONATE 85642035814 No Longer Active Alina Castaneda MD PhD Active IBUPROFEN 200 MG TABS 1 Q 6 hr. PRN IBUPROFEN 48633729735 No Longer Active Alina Castaneda MD PhD Active NIACIN ER 500 MG CR-TABS 4 qHS (for triglycerides) NIACIN 94516695987 No Longer Active Alina Castaneda MD PhD Active ALFUZOSIN HCL ER 10 MG EM89C-PEM 1 tablet daily ALFUZOSIN HCL 04060380401 Active Vanessa Hickey MD Active SAPHRIS 5 MG SUBL by mouth twice a day ASENAPINE MALEATE 98895669545 No Longer Active Maliheh Ziglari CURING OVEN TENDER Active ACETAMINOPHEN 500 MG TABS 2 Q 6 hr. PRN ACETAMINOPHEN 67890417131 No Longer Active Maliheh Ziglari CURING OVEN TENDER Active ORPHENADRINE CITRATE ER 100 MG PV80Y-ALU 1 every 12 hr. as needed ORPHENADRINE CITRATE 77430797759 No Longer Active Alina Castaneda MD PhD Active NIACIN CR 500 MG CR-TABS 2 qHS NIACIN 00684527674 No Longer Active Alina Castaneda MD PhD Active AMOXICILLIN 500 MG CAPS 2 po BID x 10 days AMOXICILLIN 51017111014 No Longer Active Alina Castaneda MD PhD Active HYDROCODONE-ACETAMINOPHEN 7.5-325 MG TABS 1 four times a day as needed for pain HYDROCODONE-ACETAMINOPHEN 07141814314 No Longer Active Alina Castaneda MD PhD Active DOXEPIN HCL 10 MG CAPS Take 1 tablet by mouth daily DOXEPIN HCL 38309370688 No Longer Active Salina ROJAS Active NAVANE 10 MG CAPS 1/2 tablet twice a day THIOTHIXENE No Longer Active Salina ROBBINSA Active CYCLOBENZAPRINE HCL 10 MG TABS 1/2 tablet by mouth every 8 hours as needed for muscle spasms CYCLOBENZAPRINE HCL 67047711415 No Longer Active Alina Castaneda MD PhD Active BACTROBAN 2 % CREAM apply to ear and nose twice daily MUPIROCIN CALCIUM 19119116579 No Longer Active Alina Castaneda MD PhD Active HYDROCODONE-ACETAMINOPHEN 5-325 MG TABS take one tablet by mouth every four hours as needed for pain HYDROCODONE-ACETAMINOPHEN 11819145172 No Longer Active Alina Castaneda MD PhD Active ZOLPIDEM TARTRATE 10 MG TABS take at bedtime ZOLPIDEM TARTRATE 52670595022 Active Alina Castaneda MD PhD Active ZYPREXA 5 MG TABS take one tablet by mouth every evening OLANZAPINE 36489783646 No Longer Active Alina Castaneda MD PhD Active ALBUTEROL SULFATE 0.083 % NEBU SOLN one vial per nebulizer TID and PRN cough/ soa ALBUTEROL SULFATE 26514191101 No Longer Active Alina Castaneda MD PhD Active GUAIFENESIN 600 MG [id number]-XUU 1 tablet by mouth twice daily if needed for cough GUAIFENESIN 90869727039 No Longer Active Marvel MARROQUIN Active AZITHROMYCIN 500 MG SOLR 1 po q day AZITHROMYCIN 11795323399 No Longer Active Alina Castaneda MD PhD Active PROMETHAZINE-CODEINE 6.25-10 MG/5ML SYRP 1 tsp po q 6 hours prn cough PROMETHAZINE-CODEINE 40557253122 No Longer Active Alina Castaneda MD PhD Active CEFDINIR 300 MG CAPS by mouth twice a day CEFDINIR 43839249297 No Longer Active Alina Castaneda MD PhD Active METFORMIN HCL 500 MG [id number]-FKC Take 3 tablets by mouth everyday METFORMIN HCL 63415391216 No Longer Active Alina Castaneda MD PhD Active LEVEMIR 100 UNIT/ML SOLN 90 units SQ qHS INSULIN DETEMIR 58773931513 No Longer Active Marvel MARROQUIN Active TOPROL XL 100 MG OF71O-WNH 1 @ HS METOPROLOL SUCCINATE 78170763154 No Longer Active Marvel MARROQUIN Active ALLOPURINOL 300 MG TABS Take one by mouth daily ALLOPURINOL 75736997960 Active Alina Castaneda MD PhD Active ZYPREXA 10 MG TABS Take one by mouth daily OLANZAPINE 78117772205 No Longer Active Alina Castaneda MD PhD Active NOVOLOG 100 UNIT/ML SOLN 40 units with every meal INSULIN ASPART 97359406011 No Longer Active Alina Castaneda MD PhD Active VERAPAMIL HCL CR 120 MG TAB CR 1 qPM VERAPAMIL HCL 47981544247 No Longer Active Salina ROJAS Active ZYPREXA 15 MG TABS Take 1 tablet by mouth daily OLANZAPINE 39186531073 No Longer Active Marvel MARROQUIN Active LISINOPRIL 20 MG TABS 1 BID LISINOPRIL 94475695924 Active Alina Castaneda MD PhD Active ALBUTEROL SULFATE (2.5 MG/3ML) 0.083% NEBU 1 neb tid and prn cough ALBUTEROL SULFATE 51319039679 No Longer Active Alina Castaneda MD PhD Active TRAVATAN Z 0.004 % SOLN 1 gtt each eye daily TRAVOPROST 53368301214 Active CRYSTAL Suarez Active LANTUS 100 UNIT/ML SOLN 60 units sq q hs INSULIN GLARGINE 51028716821 No Longer Active CRYSTAL Suarez Active ALBUTEROL SULFATE (2.5 MG/3ML) 0.083% NEBU 1 neb tid and prn cough ALBUTEROL SULFATE (2.5 MG/3ML) 0.083% NEBU 785157 ALBUTEROL SULFATE Inactive ZYPREXA 15 MG TABS Take 1 tablet by mouth daily ZYPREXA 15 MG TABS 200073 OLANZAPINE Inactive VERAPAMIL HCL CR 120 MG TAB CR 1 qPM VERAPAMIL HCL CR 120 MG TAB CR VERAPAMIL HCL Inactive ZYPREXA 10 MG TABS Take one by mouth daily ZYPREXA 10 MG TABS 183415 OLANZAPINE Inactive TOPROL XL 100 MG [id number] 1 @ HS TOPROL XL 100 MG CQ55P-JTB METOPROLOL SUCCINATE Inactive LEVEMIR 100 UNIT/ML SOLN 90 units SQ qHS LEVEMIR 100 UNIT/ML SOLN INSULIN DETEMIR Inactive PROMETHAZINE-CODEINE 6.25-10 MG/5ML SYRP 1 tsp po q 6 hours prn cough PROMETHAZINE-CODEINE 6.25-10 MG/5ML SYRP 130030 PROMETHAZINE- CODEINE Inactive GUAIFENESIN 600 MG CU75A-QTY 1 tablet by mouth twice daily if needed for cough GUAIFENESIN 600 MG [id number]-CJT GUAIFENESIN Inactive ALBUTEROL SULFATE 0.083 % NEBU SOLN one vial per nebulizer TID and PRN cough/ soa ALBUTEROL SULFATE 0.083 % NEBU SOLN 353651 ALBUTEROL SULFATE Inactive ZYPREXA 5 MG TABS take one tablet by mouth every evening ZYPREXA 5 MG TABS 798900 OLANZAPINE Inactive HYDROCODONE-ACETAMINOPHEN 5-325 MG TABS take one tablet by mouth every four hours as needed for pain HYDROCODONE-ACETAMINOPHEN 5-325 MG TABS 852000 HYDROCODONE-ACETAMINOPHEN Inactive BACTROBAN 2 % CREAM apply to ear and nose twice daily BACTROBAN 2 % CREAM 268936 MUPIROCIN CALCIUM Inactive CYCLOBENZAPRINE HCL 10 MG TABS 1/2 tablet by mouth every 8 hours as needed for muscle spasms CYCLOBENZAPRINE HCL 10 MG TABS 657626 CYCLOBENZAPRINE HCL Inactive NAVANE 10 MG CAPS 1/2 tablet twice a day NAVANE 10 MG CAPS THIOTHIXENE Inactive DOXEPIN HCL 10 MG CAPS Take 1 tablet by mouth daily DOXEPIN HCL 10 MG CAPS 8066002 DOXEPIN HCL Inactive HYDROCODONE-ACETAMINOPHEN 7.5-325 MG TABS 1 four times a day as needed for pain HYDROCODONE-ACETAMINOPHEN 7.5-325 MG TABS 963009 HYDROCODONE-ACETAMINOPHEN Inactive NIACIN CR 500 MG CR-TABS 2 qHS NIACIN CR 500 MG CR- TABS NIACIN Inactive ORPHENADRINE CITRATE ER 100 MG [id number]-RRF 1 every 12 hr. as needed ORPHENADRINE CITRATE ER 100 MG [id number]-[id number] ORPHENADRINE CITRATE Inactive ACETAMINOPHEN 500 MG TABS 2 Q 6 hr. PRN ACETAMINOPHEN 500 MG TABS 082700 ACETAMINOPHEN Inactive SAPHRIS 5 MG SUBL by mouth twice a day SAPHRIS 5 MG SUBL ASENAPINE MALEATE Inactive NIACIN ER 500 MG CR-TABS 4 qHS (for triglycerides) NIACIN ER 500 MG CR-TABS NIACIN Inactive IBUPROFEN 200 MG TABS 1 Q 6 hr. PRN IBUPROFEN 200 MG TABS 044325 IBUPROFEN Inactive FLUTICASONE PROPIONATE 50 MCG/ACT SUSP 2 sprays each nostril qDay x 30 days FLUTICASONE PROPIONATE 50 MCG/ACT SUSP 005497 FLUTICASONE PROPIONATE Inactive EQL TRUETEST TEST STRP Test blood sugar TID EQL TRUETEST TEST STRP GLUCOSE BLOOD Inactive TERESE CONTOUR TEST STRP monitor blood sugars 3x/day TERESE CONTOUR TEST STRP GLUCOSE BLOOD Inactive DETROL LA 4 MG [id number] Take 1 tablet by mouth daily DETROL LA 4 MG [id number] TOLTERODINE TARTRATE Inactive ZYPREXA 7.5 MG TABS 1 at HS ZYPREXA 7.5 MG TABS 399579 OLANZAPINE Inactive THIOTHIXENE 5 MG CAPS by mouth twice a day THIOTHIXENE 5 MG CAPS 079150 THIOTHIXENE Inactive UROXATRAL 10 MG [id number]-MHB Take 1 tablet by mouth daily UROXATRAL 10 MG MW84W-FIE ALFUZOSIN HCL Inactive ACYCLOVIR 400 MG ORAL TABS 1 pill three times daily x 5 days, for cold sore outbreak ACYCLOVIR 400 MG ORAL TABS 960455 ACYCLOVIR Inactive TRUETEST TEST STRP check sugars 4x/day TRUETEST TEST STRP GLUCOSE BLOOD Inactive HUMALOG 100 UNIT/ML SOLN Take 20 units with breakfast, 10u with lunch and suppetr. HUMALOG 100 UNIT/ML SOLN INSULIN LISPRO ( HUMAN) Inactive CYCLOBENZAPRINE HCL 10 MG TABS 1 tablet by mouth three times daily, scheduled CYCLOBENZAPRINE HCL 10 MG TABS 340467 CYCLOBENZAPRINE HCL Inactive ACCU-CHEK ROSA INVITR STRP use strips with device to check blood sugars 3 times daily ACCU-CHEK ROSA INVITR STRP GLUCOSE BLOOD Inactive ACCU-CHEK ROSA UZMA Use device to check blood sugars ACCU-CHEK ROSA UZMA BLOOD GLUCOSE MONITORING SUPPL Inactive FLUVOXAMINE MALEATE 100 MG ORAL TABS Take 1/2 tab at noon FLUVOXAMINE MALEATE 100 MG ORAL TABS 279410 FLUVOXAMINE MALEATE Inactive FLUVOXAMINE MALEATE 100 MG TABS Take one (1) tablet by mouth am, 1/2 at noon FLUVOXAMINE MALEATE 100 MG TABS 283543 FLUVOXAMINE MALEATE Inactive BACTROBAN 2 % CREAM Apply to affected area BID for up to 10 days BACTROBAN 2 % CREAM 744376 MUPIROCIN CALCIUM Inactive NOVOFINE 32G X 6 MM MISC use one four times per day NOVOFINE 32G X 6 MM MISC INSULIN PEN NEEDLE Inactive TRAZODONE HCL 100 MG ORAL TABS 1 tab by mouth for sleep TRAZODONE HCL 100 MG ORAL TABS 472197 TRAZODONE HCL Inactive LOVAZA 1 GM CAPS 4 daily (for triglycerides) LOVAZA 1 GM CAPS 247120 VQHCJ-2-ZYLZ ETHYL ESTERS Inactive METFORMIN HCL ER 500 MG HK75P-UKJ Take three tablets by mouth everyday METFORMIN HCL ER 500 MG [id number]-KIL METFORMIN HCL Inactive METOPROLOL SUCCINATE 100 MG CA07G-NBO 1 by mouth daily for blood pressure METOPROLOL SUCCINATE 100 MG EM02D-UCI METOPROLOL SUCCINATE Inactive AMITIZA 24 MCG ORAL CAPS Take one capsule BID for constipation. AMITIZA 24 MCG ORAL CAPS LUBIPROSTONE Inactive TOLTERODINE TARTRATE 2 MG TABS 1 pill twice daily, for bladder TOLTERODINE TARTRATE 2 MG TABS 674213 TOLTERODINE TARTRATE Inactive CEFDINIR 300 MG CAPS by mouth twice a day CEFDINIR 300 MG CAPS 953702 CEFDINIR Inactive AZITHROMYCIN 500 MG SOLR 1 po q day AZITHROMYCIN 500 MG SOLR 36689103184 AZITHROMYCIN Inactive AMOXICILLIN 500 MG CAPS 2 po BID x 10 days AMOXICILLIN 500 MG CAPS 362656 AMOXICILLIN Inactive PENICILLIN V POTASSIUM 500 MG TABS 1 pill by mouth three times daily PENICILLIN V POTASSIUM 500 MG TABS 169892 PENICILLIN V POTASSIUM Inactive KEFLEX 500 MG CAP 1 po BID x 7 days KEFLEX 500 MG CAP 149914 CEPHALEXIN Inactive Immunizations Vaccine Administration Date Value [...] Fluvirin, Fluarix, Agriflu(>=18 yo)) Fluzone (>3 yrs.) [[id number]] Influenza, seasonal, injectable pneumococcal immunization administered Pneumovax [...] MICROALBUMIN - Chemistry sodium, serum 137 mmol/L 366-748 4303/05/19 potassium, serum 5.2 mmol/L 3.5-5.2 chloride, serum [...] Panel - Chemistry sodium, serum 137 mmol/L 334-512 3618/10/12 potassium, serum 4.8 mmol/L 3.5-5.2 chloride, serum 102 mmol/L 98-107 carbon dioxide, venous blood 27.6 mmol/L 21.0-32.0 blood glucose 168 mg/dL 65-110 calcium, serum 9.0 mg/dL 8.5-10.1 urea nitrogen, blood 15 mg/dL 7-18 creatinine, serum 1.04 mg/dL 0.55-1.30 sodium, serum 138 mmol/L 571-695 9177/11/11 potassium, serum 4.7 mmol/L 3.5-5.2 chloride, serum [...] % 11.6-14.8 platelet count 252 10^3/MM^3 10*3/mm3 778-043 6738/10/12 leukocyte count, blood 5.8 10^3/MM^3 10*3/mm3 4.6-10.2 [...] 240 10^3/MM^3 10*3/mm3 142-424 Lab Report: Chlamydia/GC APTIMA/81460, HIV-1/2 Agn/Dominga/44118, RPR (DX) W ... - Chemistry hepatitis B surface antigen NON-REACTIVE NON-REACTIVE Lab Report: Chlamydia/GC APTIMA/80928, HIV-1/2 Agn/Dominga/52318, RPR (DX) W ... - Lab chlamydia DNA probe NOT DETECTED NOT DETECTED Lab Report: Chlamydia/GC APTIMA/09350, HIV-1/2 Agn/Dominga/83874, RPR (DX) W ... - Microbiology Neisseria gonorrhoeae DNA probe NOT DETECTED NOT DETECTED Lab Report: Chlamydia/GC APTIMA/93232, HIV-1/2 Agn/Dominga/21977, RPR (DX) W ... - Serology rapid plasma reagin antibody titer NON-REACTIVE NON-REACTIVE Lab Report: HGBA1C - Chemistry hemoglobin A1C, blood, as % of total hemoglobin 6.1 % 4.3-6.0 hemoglobin A1C, blood, as % of total hemoglobin 6.3 % 4.3-6.0 Lab Report: Lipid Panel, HEPATIC PANEL, MICROALBUMIN, CBC - Chemistry cholesterol, serum 131 mg/dL 336-189 9429/06/03 triglyceride, serum, fasting 383 mg/dL 30-200 HDL [...] 4.7 mg/dL 2.6-7.2 cholesterol, serum 142 mg/dL 902-702 7601/06/26 triglyceride, serum, fasting 272 mg/dL 30-200 HDL [...] negative Encounters Code Encounter Date Provider Facility CPT-46935 Level 3 Est. Patient 14:39:00 SECURITY COORDINATOR [facility] CPT-13463 Level 2 Est. Patient 18:43:34 CDT Mima Erazo [facility] CPT-73315 Level 3 Est. Patient 16:22:09 CDT Cherelle Avila [facility] CPT-98860 Level 4 Est. Patient 17:55:14 CDT Mima Erazo [facility] CPT-17837 Level 2 Est. Patient 17:13:21 CDT Alina Castaneda MD PhD [facility] CPT-52658 Level 3 Est. Patient 14:46:15 CDT Vanessa Hickey MD [facility]-12417 Level 3 Est. Patient 09:34:56 CDT Alina Castaneda MD PhD [facility]01556 Level 3 Est. Patient 21:40:19 CDT Mima Erazo [facility] CPT-58516 Level 3 Est. Patient 09:26:40 CDT [address] [facility]-51732 Level 3 Est. Patient 12:36:43 CDT Vanessa Hickey MD [facility]-64182 Level 3 Est. Patient 12:57:49 CDT Vanessa Hickey MD [facility]-74892 Level 3 Est. Patient 00:28:25 CDT Alina Castaneda MD [facility]-84362 Level 2 Est. Patient 12:52:14 CDT Alina Castaneda MD [facility]-50509 Level 3 Est. Patient 11:51:18 SECURITY COORDINATOR Alina Castaneda MD [facility]-19069 Level 3 Est. Patient 10:09:22 SECURITY COORDINATOR Alina Castaneda MD [facility]-87175 Level 3 Est. Patient 14:36:26 [facility]ITY COORDINATOR [facility]-07232 Level 3 Est. Patient 13:34:47 SECURITY COORDINATOR Alina Castaneda MD [facility]-98463 Level 3 Est. Patient 19:52:08 SECURITY COORDINATOR Alina Castaneda MD [facility]20660 Level 3 Est. Patient 10:01:51 SECURITY COORDINATOR Marvel [facility]-48402 Level 3 Est. Patient 21:54:06 CDT Vanessa Hickey MD [facility]-48751 Level 3 Est. Patient 08:54:46 CDT Alina Castaneda MD [facility]-97994 Level 3 Est. Patient 09:32:11 CDT Marvel [facility]-87537 Level 3 Est. Patient 12:02:49 CDT Alina Castaenda MD [facility]78574 Level 3 Est. Patient 19:17:33 CDT Alina Castaneda MD [facility]-96873 Level 3 Est. Patient 13:19:10 CDT Marvel [facility]-27804 Level 3 Est. Patient 08:20:05 CDT Alina Castaneda MD [facility]38454 Level 3 Est. Patient 15:17:18 CDT Alina Castaneda MD [facility]-24726 Level 3 Est. Patient 14:25:36 SECURITY COORDINATOR Marvel [facility]-74062 Level 3 Est. Patient 10:09:15 SECURITY COORDINATOR Marvel [facility]-05135 Level 3 Est. Patient 21:28:43 CDT Alina Castaneda MD [facility]-97199 Level 3 Est. Patient 15:20:11 [facility] Level 4 Est. Patient 19:08:12 CDT Alina Castaneda MD [facility]-80009 Level 3 Est. Patient 15:06:39 CDT Marvel [facility]-11440 Level 4 Est. Patient 17:48:15 CDT Alina Castaneda MD [facility]-72750 Level 3 Est. Patient 14:53:49 CDT Alina Castaneda MD [facility]-51108 Level 3 Est. Patient 09:35:16 CDT Alina Castaneda MD [facility]14496 Level 3 Est. Patient 12:23:22 CDT Alina Castaneda MD [facility]-05627 Level 3 Est. Patient 16:19:15 CDT Alina Castaneda MD [facility]-81797 Level 3 Est. Patient 21:39:56 SECURITY COORDINATOR Alina Castaneda MD [facility]-82515 Level 4 Est. Patient 14:12:56 SECURITY COORDINATOR Alina Castaneda MD [facility]96758 Level 2 Est. Patient 15:34:57 SECURITY COORDINATOR Alina Castaneda MD [facility]49303 Level 3 Est. Patient 12:17:04 SECURITY COORDINATOR Alina Castaneda MD [facility]39501 Level 3 Est. Patient 09:18:18 SECURITY COORDINATOR Marvel [facility]-55915 Level 2 Est. Patient 21:50:24 CDT Alina Castaneda MD [facility]23138 Level 3 Est. Patient 09:17:28 CDT Marvel [facility]-43239 Level 4 Est. Patient 18:54:02 CDT Alina Castaneda MD [facility]59172 Level 3 Est. Patient 10:47:10 CDT Alina Castaneda MD [facility]-65013 Level 3 Est. Patient 09:22:20 CDT Marvel [facility]-51239 Level 3 Est. Patient 16:39:43 CDT Marvel [facility]-83369 Level 3 Est. Patient 16:05:16 CDT Alina Castaneda MD [facility]69340 Level 3 Est. Patient 00:29:15 CDT Alina Castaneda MD [facility]07800 Level 3 Est. Patient 10:49:22 SECURITY COORDINATOR [facility] [place] CPT-16432 Level 3 Est. Patient 21:30:19 SECURITY COORDINATOR Alina Castaneda MD [facility] CPT-08504 Level 4 Est. Patient 17:04:11 SECURITY COORDINATOR [facility] [place] CPT-41028 Level 3 Est. Patient 15:34:11 SECURITY COORDINATOR [facility] [place] CPT-60663 Level 2 Est. Patient 12:51:58 SECURITY COORDINATOR Alina Castaneda MD [facility] CPT-02693 Level 3 Est. Patient 13:20:01 SECURITY COORDINATOR Alina Castaneda MD [facility] CPT-72517 Level 3 Est. Patient 09:23:35 CDT Alina Castaneda MD [facility] Procedures Code Procedure Name Date Entry Date Standard Description [id number] Bladder Scan 14:39:01 SECURITY COORDINATOR CPT-TCMM Transitional Care Mgmt-Moderate 10:30:19 SECURITY COORDINATOR CPT-58531 Bladder Scan 12:36:44 CDT CPT-04685 Bladder Scan 21:54:06 CDT CPT-G0008 Administration of Influenza Virus Vaccine 13:05:26 CDT CPT-76217 Fluzone Quadrivalent Intramuscular Suspension 0.5 ML 13: 05:26 CDT CPT-89472 Administration single or combination vaccine inc oral 11 :49:51 CDT CPT-29801 Pneumovax 11:49:51 CDT CPT-62552 Ribs unilateral 2V 12:37:22 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
--- OUTSIDE RECORDS SUMMARY | 2018-07-02 17:48 | XMS REPORT | Clinical Summary ---
Author Author Admin, TERELL Organization [facility] BrandBacker Address Unknown Phone Unavailable Allergies, Adverse Reactions, [...] PhD Dizziness and giddiness Confusion 298.9 Resolved Alian Castaneda MD PhD Unspecified psychosis INCONTINENCE, URGE 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 Erazo PROCUREMENT ANALYST Benign paroxysmal positional vertigo Vertigo, benign paroxysmal position 386.11 Inactive Mima Erazo PROCUREMENT ANALYST Benign paroxysmal positional vertigo High-risk sexual behavior V69.2 Active Alina Castaneda MD PhD High-risk sexual behavior Erectile dysfunction 302.72 Active Alina Castaneda MD PhD Psychosexual dysfunction with inhibited sexual excitement Constipation 564.00 Active Alina Castaneda MD PhD Constipation, unspecified Skin lesion 709.9 Active Alina Castaneda MD PhD Unspecified disorder of skin and subcutaneous tissue Malaise and fatigue 780.79 Active Cherelle Speaks PROCUREMENT ANALYST Other malaise and fatigue Diarrhea 787.91 Active Cherelle Speaks PROCUREMENT ANALYST Diarrhea PHARYNGITIS 462 Active Cherelle Speaks PROCUREMENT ANALYST Acute pharyngitis Colitis 558.9 Active Mima Erazo PROCUREMENT ANALYST Other and unspecified noninfectious gastroenteritis and [...] Castaneda MD PhD SKIN LESION ICD-709.9 Roro Casatneda MD PhD SINUSITIS, ACUTE ICD-461.9 Roro Castaneda [...] LANCETS 30G MISC 3x a day LANCETS 04391966423 Active [employer] 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 OILER BANDER Active TRUE METRIX METER W/DEVICE KIT Check blood sugars 3x/day BLOOD GLUCOSE MONITORING SUPPL 30988973461 Active Zaineh 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 OILER BANDER Active TRUE METRIX BLOOD GLUCOSE TEST INVITR STRP Check blood sugars 3x/day. GLUCOSE BLOOD 21121989371 Active Brooksiheh 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 OILER BANDER Active VITAMIN D 2000 UNIT ORAL CAPS Take one by mouth daily CHOLECALCIFEROL 47364542538 Active Mima Yokum PROCUREMENT ANALYST Active LATUDA 60 MG ORAL TABS Take one by mouth daily LURASIDONE HCL 42739692458 No Longer Active Mima Yokum PROCUREMENT ANALYST Active HUMALOG KWIKPEN 100 UNIT/ML SC SOPN sliding scale if needed INSULIN LISPRO (HUMAN) 68356060552 Active Mima Yokum PROCUREMENT ANALYST Active MORPHINE SULFATE 30 MG ORAL TABS by mouth twice a day MORPHINE SULFATE 19317649653 Active Mima Yokum PROCUREMENT ANALYST Active TRAZODONE HCL 100 MG TABS 1 every night to prevent headaches TRAZODONE HCL 36731766327 Active Gabrielle Marquez GRINDING MACHINE OPERATOR AUTOMATIC Active LATUDA 60 MG ORAL TABS 1 tab daily LURASIDONE HCL 37075185944 Active Gabrielle Littlel GRINDING MACHINE OPERATOR AUTOMATIC Active CLONAZEPAM 1 MG TABS 1 pill by mouth three times daily CLONAZEPAM 07392711153 Active Gabrielle Littlel GRINDING MACHINE OPERATOR AUTOMATIC Active [facility] MILK OF MAGNESIA 400 MG/5ML ORAL SUSP 30ml by mouth bid prn MAGNESIUM HYDROXIDE 50359570455 Active Mason Loredo MD Active TYLENOL 8 HOUR 650 MG ORAL CR-TABS 1 tab QID prn ACETAMINOPHEN 22987739755 Active Mason Loredo MD Active MYLANTA GAS RELIEF MAXIMUM STR 125 MG ORAL CAPS 30cc every 4 hours prn 12/01 SIMETHICONE 30698498329 Active Mason Loredo MD Active IMODIUM A-D 2 MG ORAL TABS 1 tab QID as needed LOPERAMIDE HCL 33837878127 Active Mason Loredo MD Active FLUVOXAMINE MALEATE 50 MG ORAL TABS 1 tab by mouth daily FLUVOXAMINE MALEATE 46712939496 Active Mason Loredo MD Active TRAVATAN Z 0.004 % SOLN 1 gtt each eye daily TRAVOPROST 81754717411 No Longer Active Mason Loredo MD Active LISINOPRIL 20 MG TABS 1 BID LISINOPRIL 42477377879 No Longer Active Mason Loredo MD Active LEVEMIR FLEXTOUCH 100 UNIT/ML SC SOPN 60 units SQ each evening, for diabetes INSULIN DETEMIR 46952151636 Active Desi Nicholson Active ZOLPIDEM TARTRATE 10 MG TABS take at bedtime ZOLPIDEM TARTRATE 45780605826 No Longer Active Mason Loredo MD Active HYDROCODONE-ACETAMINOPHEN 5-325 MG TABS 2 tabs by mouth three times daily for pain HYDROCODONE-ACETAMINOPHEN 36525790013 No Longer Active Mason Loredo MD Active ZOFRAN 4 MG TABS 1 po q4hr PRN Nausea ONDANSETRON HCL 19692855543 No Longer Active Mason Loredo MD Active LOMOTIL 2.5-0.025 MG ORAL TABS take 1-2 tabs PO after each stool, no more than 8 in 24 hours DIPHENOXYLATE-ATROPINE 68249169554 No Longer Active Mason Loredo MD Active COLACE 100 MG CAPS 1 pill by mouth twice daily, for constipation DOCUSATE SODIUM 31971185822 No Longer Active Mimacecily Erazo APRN Active FLONASE ALLERGY RELIEF 50 MCG/ACT NASAL SUSP One spray each nostril BID x 1 week then daily FLUTICASONE PROPIONATE 19913168856 Active Mima Yokum PROCUREMENT ANALYST Active BD PEN NEEDLE MINI U/F 31G X 5 MM MISC 4 a day INSULIN PEN NEEDLE 41124025441 Active Mallashondaeh Ziglari OILER BANDER Active AMITIZA 24 MCG ORAL CAPS Take one capsule BID for constipation LUBIPROSTONE 15671486933 Active Mimacecily Erazo APRN Active TRUEPLUS LANCETS 30G MISC 3 a day LANCETS 92092746853 Active Maljohn Ziglari OILER BANDER Active TOLTERODINE TARTRATE 2 MG TABS 1 pill twice daily, for bladder TOLTERODINE TARTRATE 10241816943 No Longer Active Vanessa Hickey MD Active AMITIZA 24 MCG ORAL CAPS Take one capsule BID for constipation. LUBIPROSTONE 50871894077 No Longer Active Vanessa Hikcey MD Active FLUVOXAMINE MALEATE 100 MG ORAL TABS take one tab every AM et HS, and take 1/ 2 tab at noon FLUVOXAMINE MALEATE 88757144279 Active Grace ROJAS Active METOPROLOL SUCCINATE 100 MG [id number]-SNJ 1 by mouth daily for blood pressure METOPROLOL SUCCINATE 79155769857 No Longer Active Grace ROJAS Active METFORMIN HCL ER 500 MG [id number]-ABV Take three tablets by mouth everyday METFORMIN HCL 94779797348 No Longer Active Grace ROJAS Active LOVAZA 1 GM CAPS 4 daily (for triglycerides) OMEGA-3- ACID ETHYL ESTERS 57289745233 No Longer Active Grace Azam RMA Active TRAZODONE HCL 100 MG ORAL TABS 1 tab by mouth for sleep TRAZODONE HCL 91605566007 No Longer Active Grace Azam RMA Active NOVOFINE 32G X 6 MM MISC use one four times per day INSULIN PEN NEEDLE 87850711541 No Longer Active Grace Azam RMA Active BACTROBAN 2 % CREAM Apply to affected area BID for up to 10 days MUPIROCIN CALCIUM 80684760430 No Longer Active Grace Azam RMA Active KEFLEX 500 MG CAP 1 po BID x 7 days CEPHALEXIN 34782668489 No Longer Active Cherelle Speaks PROCUREMENT ANALYST Active FLUVOXAMINE MALEATE 100 MG TABS Take one (1) tablet by mouth am, 1/2 at noon FLUVOXAMINE MALEATE 83104170096 No Longer Active Mima Yokum PROCUREMENT ANALYST Active CORICIDIN HBP CONGESTION/COUGH 10-200 MG ORAL CAPS Take as directed on box as needed for cold/flu symptoms DEXTROMETHORPHAN-GUAIFENESIN 29515311321 Active Cherelle Speaks PROCUREMENT ANALYST Active OMEGA-3 300 MG ORAL CAPS 4 caps by mouth daily OMEGA-3 FATTY ACIDS 20406171512 Active Mima Yokum PROCUREMENT ANALYST Active FLUVOXAMINE MALEATE 100 MG ORAL TABS Take 1/2 tab at noon FLUVOXAMINE MALEATE 10612526455 No Longer Active Cherelle Speaks PROCUREMENT ANALYST Active [facility] LUBRICANT EYE DROPS 0.4-0.3 % OPHTH SOLN POLYETHYL GLYCOL-PROPYL GLYCOL 50592134746 Active Mima Yokum PROCUREMENT ANALYST Active MIRALAX POWD 17g by mouth daily, for constipation POLYETHYLENE GLYCOL 3350 87151755239 Active Alina Castaneda MD PhD Active TRUETEST TEST STRP check blood sugars 3x/day GLUCOSE BLOOD 43951548797 Active Mallashondaeh Ziglari OILER BANDER Active ACCU-CHEK ROSA UZMA Use device to check blood sugars BLOOD GLUCOSE MONITORING SUPPL 24765937530 No Longer Active Maljohn Ziglari OILER BANDER Active ACCU-CHEK ROSA INVITR STRP use strips with device to check blood sugars 3 times daily GLUCOSE BLOOD 54500670337 No Longer Active Brooksnivia Mackenzieglari OILER BANDER Active VERAPAMIL HCL ER 180 MG ORAL CR-TABS 1 pill by mouth twice daily, for migraine prevention VERAPAMIL HCL 08601677433 Active Mima Erazo PROCUREMENT ANALYST Active CYCLOBENZAPRINE HCL 10 MG TABS 1 tablet by mouth three times daily, scheduled CYCLOBENZAPRINE HCL 83509000748 No Longer Active Alina Castaneda MD PhD Active HUMALOG 100 UNIT/ML SOLN Take 20 units with breakfast, 10u with lunch and suppetr. INSULIN LISPRO (HUMAN) 63663441898 No Longer Active Alina Castaneda MD PhD Active TRUETEST TEST STRP check sugars 4x/day GLUCOSE BLOOD 65799551120 No Longer Active Alina Castaneda MD PhD Active MORPHINE SULFATE 30 MG TABS 1 pill by mouth twice daily, for pain MORPHINE SULFATE 15970025561 No Longer Active Mason Loredo MD Active ACYCLOVIR 400 MG ORAL TABS 1 pill three times daily x 5 days, for cold sore outbreak ACYCLOVIR 91551743870 No Longer Active Alina Castaneda MD PhD Active PENICILLIN V POTASSIUM 500 MG TABS 1 pill by mouth three times daily PENICILLIN V POTASSIUM 98374346457 No Longer Active Alina Castaneda MD PhD Active UROXATRAL 10 MG [id number]-HFQ Take 1 tablet by mouth daily ALFUZOSIN HCL 85193254909 No Longer Active Alina Castaneda MD PhD Active THIOTHIXENE 5 MG CAPS by mouth twice a day THIOTHIXENE 58569011920 No Longer Active Alina Castaneda MD PhD Active ZYPREXA 7.5 MG TABS 1 at HS OLANZAPINE 49438061645 No Longer Active Alina Castaneda MD PhD Active BD INSULIN SYRINGE 28G X 1/2" 1 ML MISC 1 four times per day INSULIN SYRINGE-NEEDLE U-100 94411542439 Active Maliheh Ziglari OILER BANDER Active DETROL LA 4 MG [id number]-FYU Take 1 tablet by mouth daily TOLTERODINE TARTRATE 18966552496 No Longer Active Alina Castaneda MD PhD Active TERESE CONTOUR TEST STRP monitor blood sugars 3x/day GLUCOSE BLOOD 49930666146 No Longer Active Alina Castaneda MD PhD Active EQL TRUETEST TEST STRP Test blood sugar TID GLUCOSE BLOOD 86583305566 No Longer Active Alina Castaneda MD PhD Active FLUTICASONE PROPIONATE 50 MCG/ACT SUSP 2 sprays each nostril qDay x 30 days FLUTICASONE PROPIONATE 94203448371 No Longer Active Alina Castaneda MD PhD Active IBUPROFEN 200 MG TABS 1 Q 6 hr. PRN IBUPROFEN 43597928920 No Longer Active Alina Castaneda MD PhD Active NIACIN ER 500 MG CR-TABS 4 qHS (for triglycerides) NIACIN 25945627527 No Longer Active Alina Castaneda MD PhD Active ALFUZOSIN HCL ER 10 MG [id number] 1 tablet daily ALFUZOSIN HCL 28195092689 Active Mima Vadimum PROCUREMENT ANALYST Active SAPHRIS 5 MG SUBL by mouth twice a day ASENAPINE MALEATE 55984033676 No Longer Active Marvel Mackenzieglari OILER BANDER Active ACETAMINOPHEN 500 MG TABS 2 Q 6 hr. PRN ACETAMINOPHEN 11615908803 No Longer Active Maliheh Ziglari OILER BANDER Active ORPHENADRINE CITRATE ER 100 MG [id number] 1 every 12 hr. as needed ORPHENADRINE CITRATE 46736214479 No Longer Active Alina Castaneda MD PhD Active NIACIN CR 500 MG CR-TABS 2 qHS NIACIN 19155166956 No Longer Active Alina Castaneda MD PhD Active AMOXICILLIN 500 MG CAPS 2 po BID x 10 days AMOXICILLIN 83249973246 No Longer Active Alina Castaneda MD PhD Active HYDROCODONE-ACETAMINOPHEN 7.5-325 MG TABS 1 four times a day as needed for pain HYDROCODONE-ACETAMINOPHEN 12209971930 No Longer Active Alina Castaneda MD PhD Active DOXEPIN HCL 10 MG CAPS Take 1 tablet by mouth daily DOXEPIN HCL 56074182358 No Longer Active Salina Han [facility] Active NAVANE 10 MG CAPS 1/2 tablet twice a day THIOTHIXENE No Longer Active Salina Han [facility] Active CYCLOBENZAPRINE HCL 10 MG TABS 1/2 tablet by mouth every 8 hours as needed for muscle spasms CYCLOBENZAPRINE HCL 48778351645 No Longer Active Alina Castaneda MD PhD Active BACTROBAN 2 % CREAM apply to ear and nose twice daily MUPIROCIN CALCIUM 20435393653 No Longer Active Alina Castaneda MD PhD Active HYDROCODONE-ACETAMINOPHEN 5-325 MG TABS take one tablet by mouth every four hours as needed for pain HYDROCODONE-ACETAMINOPHEN 78052816005 No Longer Active Alina Castaneda MD PhD Active ZYPREXA 5 MG TABS take one tablet by mouth every evening OLANZAPINE 63531242551 No Longer Active Alina Castaneda MD PhD Active ALBUTEROL SULFATE 0.083 % NEBU SOLN one vial per nebulizer TID and PRN cough/ soa ALBUTEROL SULFATE 59417060543 No Longer Active Alina Castaneda MD PhD Active GUAIFENESIN 600 MG [id number]-DBR 1 tablet by mouth twice daily if needed for cough GUAIFENESIN 83319422554 No Longer Active Marvel MARROQUIN Active AZITHROMYCIN 500 MG SOLR 1 po q day AZITHROMYCIN 89741824656 No Longer Active Alina Castaneda MD PhD Active PROMETHAZINE-CODEINE 6.25-10 MG/5ML SYRP 1 tsp po q 6 hours prn cough PROMETHAZINE-CODEINE 82448068388 No Longer Active Alina Castaneda MD PhD Active CEFDINIR 300 MG CAPS by mouth twice a day CEFDINIR 89136332137 No Longer Active Alina Castaneda MD PhD Active METFORMIN HCL 500 MG [id number] Take 3 tablets by mouth everyday METFORMIN HCL 66938497581 No Longer Active Alina Castaneda MD PhD Active LEVEMIR 100 UNIT/ML SOLN 90 units SQ qHS INSULIN DETEMIR 16365994559 No Longer Active Marvel MARROQUIN Active TOPROL XL 100 MG [id number]-FTT 1 @ HS METOPROLOL SUCCINATE 80992929617 No Longer Active Marvel MARROQUIN Active ALLOPURINOL 300 MG TABS Take one by mouth daily ALLOPURINOL 81962530784 Active Mima Vadimjerrell PROCUREMENT ANALYST Active ZYPREXA 10 MG TABS Take one by mouth daily OLANZAPINE 21823255024 No Longer Active Alina Castaneda MD PhD Active NOVOLOG 100 UNIT/ML SOLN 40 units with every meal INSULIN ASPART 60947676917 No Longer Active Alina Castaneda MD PhD Active VERAPAMIL HCL CR 120 MG TAB CR 1 qPM VERAPAMIL HCL 97807785567 No Longer Active Salina ROJAS Active ZYPREXA 15 MG TABS Take 1 tablet by mouth daily OLANZAPINE 75725008825 No Longer Active Marvel MARROQUIN Active ALBUTEROL SULFATE (2.5 MG/3ML) 0.083% NEBU 1 neb tid and prn cough ALBUTEROL SULFATE 25542207565 No Longer Active Alina Castaneda MD PhD Active LANTUS 100 UNIT/ML SOLN 60 units sq q hs INSULIN GLARGINE 82142243028 No Longer Active CRYSTAL Suarez Active ALBUTEROL SULFATE (2.5 MG/3ML) 0.083% NEBU 1 neb tid and prn cough ALBUTEROL SULFATE (2.5 MG/3ML) 0.083% NEBU 664270 ALBUTEROL SULFATE Inactive ZYPREXA 15 MG TABS Take 1 tablet by mouth daily ZYPREXA 15 MG TABS 477421 OLANZAPINE Inactive VERAPAMIL HCL CR 120 MG TAB CR 1 qPM VERAPAMIL HCL CR 120 MG TAB CR VERAPAMIL HCL Inactive ZYPREXA 10 MG TABS Take one by mouth daily ZYPREXA 10 MG TABS 717158 OLANZAPINE Inactive TOPROL XL 100 MG IN23Y-PWE 1 @ HS TOPROL XL 100 MG GE42A-JUB METOPROLOL SUCCINATE Inactive LEVEMIR 100 UNIT/ML SOLN 90 units SQ qHS LEVEMIR 100 UNIT/ML SOLN INSULIN DETEMIR Inactive PROMETHAZINE-CODEINE 6.25-10 MG/5ML SYRP 1 tsp po q 6 hours prn cough PROMETHAZINE-CODEINE 6.25-10 MG/5ML SYRP 383488 PROMETHAZINE- CODEINE Inactive GUAIFENESIN 600 MG ZI98H-YWD 1 tablet by mouth twice daily if needed for cough GUAIFENESIN 600 MG IX18R-SPX GUAIFENESIN Inactive ALBUTEROL SULFATE 0.083 % NEBU SOLN one vial per nebulizer TID and PRN cough/ soa ALBUTEROL SULFATE 0.083 % NEBU SOLN 934258 ALBUTEROL SULFATE Inactive ZYPREXA 5 MG TABS take one tablet by mouth every evening ZYPREXA 5 MG TABS 297684 OLANZAPINE Inactive HYDROCODONE-ACETAMINOPHEN 5-325 MG TABS take one tablet by mouth every four hours as needed for pain HYDROCODONE-ACETAMINOPHEN 5-325 MG TABS 138412 HYDROCODONE-ACETAMINOPHEN Inactive BACTROBAN 2 % CREAM apply to ear and nose twice daily BACTROBAN 2 % CREAM 323601 MUPIROCIN CALCIUM Inactive CYCLOBENZAPRINE HCL 10 MG TABS 1/2 tablet by mouth every 8 hours as needed for muscle spasms CYCLOBENZAPRINE HCL 10 MG TABS 713773 CYCLOBENZAPRINE HCL Inactive NAVANE 10 MG CAPS 1/2 tablet twice a day NAVANE 10 MG CAPS THIOTHIXENE Inactive DOXEPIN HCL 10 MG CAPS Take 1 tablet by mouth daily DOXEPIN HCL 10 MG CAPS 1618333 DOXEPIN HCL Inactive HYDROCODONE-ACETAMINOPHEN 7.5-325 MG TABS 1 four times a day as needed for pain HYDROCODONE-ACETAMINOPHEN 7.5-325 MG TABS 667762 HYDROCODONE-ACETAMINOPHEN Inactive NIACIN CR 500 MG CR-TABS 2 qHS NIACIN CR 500 MG CR- TABS NIACIN Inactive ORPHENADRINE CITRATE ER 100 MG [id number] 1 every 12 hr. as needed ORPHENADRINE CITRATE ER 100 MG [id number] ORPHENADRINE CITRATE Inactive ACETAMINOPHEN 500 MG TABS 2 Q 6 hr. PRN ACETAMINOPHEN 500 MG TABS 831769 ACETAMINOPHEN Inactive SAPHRIS 5 MG SUBL by mouth twice a day SAPHRIS 5 MG SUBL ASENAPINE MALEATE Inactive NIACIN ER 500 MG CR-TABS 4 qHS (for triglycerides) NIACIN ER 500 MG CR-TABS NIACIN Inactive IBUPROFEN 200 MG TABS 1 Q 6 hr. PRN IBUPROFEN 200 MG TABS 422768 IBUPROFEN Inactive FLUTICASONE PROPIONATE 50 MCG/ACT SUSP 2 sprays each nostril qDay x 30 days FLUTICASONE PROPIONATE 50 MCG/ACT SUSP 1603374 FLUTICASONE PROPIONATE Inactive EQL TRUETEST TEST STRP Test blood sugar TID EQL TRUETEST TEST STRP GLUCOSE BLOOD Inactive TERESE CONTOUR TEST STRP monitor blood sugars 3x/day TERESE CONTOUR TEST STRP GLUCOSE BLOOD Inactive DETROL LA 4 MG [id number]-YDW Take 1 tablet by mouth daily DETROL LA 4 MG [id number]-ZWM TOLTERODINE TARTRATE Inactive ZYPREXA 7.5 MG TABS 1 at HS ZYPREXA 7.5 MG TABS 036238 OLANZAPINE Inactive THIOTHIXENE 5 MG CAPS by mouth twice a day THIOTHIXENE 5 MG CAPS 797572 THIOTHIXENE Inactive UROXATRAL 10 MG [id number]-UBS Take 1 tablet by mouth daily UROXATRAL 10 MG CD71B-BWW ALFUZOSIN HCL Inactive ACYCLOVIR 400 MG ORAL TABS 1 pill three times daily x 5 days, for cold sore outbreak ACYCLOVIR 400 MG ORAL TABS 335326 ACYCLOVIR Inactive TRUETEST TEST STRP check sugars 4x/day TRUETEST TEST STRP GLUCOSE BLOOD Inactive HUMALOG 100 UNIT/ML SOLN Take 20 units with breakfast, 10u with lunch and suppetr. HUMALOG 100 UNIT/ML SOLN INSULIN LISPRO ( HUMAN) Inactive CYCLOBENZAPRINE HCL 10 MG TABS 1 tablet by mouth three times daily, scheduled CYCLOBENZAPRINE HCL 10 MG TABS 431122 CYCLOBENZAPRINE HCL Inactive ACCU-CHEK ROSA INVITR STRP use strips with device to check blood sugars 3 times daily ACCU-CHEK ROSA INVITR STRP GLUCOSE BLOOD Inactive ACCU-CHEK ROSA UZMA Use device to check blood sugars ACCU-CHEK ROSA UZMA BLOOD GLUCOSE MONITORING SUPPL Inactive FLUVOXAMINE MALEATE 100 MG ORAL TABS Take 1/2 tab at noon FLUVOXAMINE MALEATE 100 MG ORAL TABS 276542 FLUVOXAMINE MALEATE Inactive FLUVOXAMINE MALEATE 100 MG TABS Take one (1) tablet by mouth am, 1/2 at noon FLUVOXAMINE MALEATE 100 MG TABS 071871 FLUVOXAMINE MALEATE Inactive BACTROBAN 2 % CREAM Apply to affected area BID for up to 10 days BACTROBAN 2 % CREAM 194801 MUPIROCIN CALCIUM Inactive NOVOFINE 32G X 6 MM MISC use one four times per day NOVOFINE 32G X 6 MM [facility] INSULIN PEN NEEDLE Inactive TRAZODONE HCL 100 MG ORAL TABS 1 tab by mouth for sleep TRAZODONE HCL 100 MG ORAL TABS 281457 TRAZODONE HCL Inactive LOVAZA 1 GM CAPS 4 daily (for triglycerides) LOVAZA 1 GM CAPS 011575 TRPNT-9-UVMP ETHYL ESTERS Inactive METFORMIN HCL ER 500 MG AT61I-TEL Take three tablets by mouth everyday METFORMIN HCL ER 500 MG [id number]-UFY METFORMIN HCL Inactive METOPROLOL SUCCINATE 100 MG OL61J-BJW 1 by mouth daily for blood pressure METOPROLOL SUCCINATE 100 MG BF60R-DWS METOPROLOL SUCCINATE Inactive AMITIZA 24 MCG ORAL CAPS Take one capsule BID for constipation. AMITIZA 24 MCG ORAL CAPS LUBIPROSTONE Inactive TOLTERODINE TARTRATE 2 MG TABS 1 pill twice daily, for bladder TOLTERODINE TARTRATE 2 MG TABS 351581 TOLTERODINE TARTRATE Inactive COLACE 100 MG CAPS 1 pill by mouth twice daily, for constipation COLACE 100 MG CAPS 7979437 DOCUSATE SODIUM Inactive LOMOTIL 2.5-0.025 MG ORAL TABS take 1-2 tabs PO after each stool, no more than 8 in 24 hours LOMOTIL 2.5-0.025 MG ORAL TABS 4307419 DIPHENOXYLATE-ATROPINE Inactive ZOFRAN 4 MG TABS 1 po q4hr PRN Nausea ZOFRAN 4 MG TABS 068404 ONDANSETRON HCL Inactive HYDROCODONE-ACETAMINOPHEN 5-325 MG TABS 2 tabs by mouth three times daily for pain HYDROCODONE-ACETAMINOPHEN 5-325 MG TABS 042162 HYDROCODONE-ACETAMINOPHEN Inactive ZOLPIDEM TARTRATE 10 MG TABS take at bedtime ZOLPIDEM TARTRATE 10 MG TABS 524304 ZOLPIDEM TARTRATE Inactive LISINOPRIL 20 MG TABS 1 BID LISINOPRIL 20 MG TABS 409148 LISINOPRIL Inactive TRAVATAN Z 0.004 % SOLN 1 gtt each eye daily TRAVATAN Z 0.004 % SOLN TRAVOPROST Inactive LATUDA 60 MG ORAL TABS Take one by mouth daily LATUDA 60 MG ORAL TABS LURASIDONE HCL Inactive CEFDINIR 300 MG CAPS by mouth twice a day CEFDINIR 300 MG CAPS 091234 CEFDINIR Inactive AZITHROMYCIN 500 MG SOLR 1 po q day AZITHROMYCIN 500 MG SOLR 64948771892 AZITHROMYCIN Inactive AMOXICILLIN 500 MG CAPS 2 po BID x 10 days AMOXICILLIN 500 MG CAPS 471435 AMOXICILLIN Inactive PENICILLIN V POTASSIUM 500 MG TABS 1 pill by mouth three times daily PENICILLIN V POTASSIUM 500 MG TABS 230978 PENICILLIN V POTASSIUM Inactive KEFLEX 500 MG CAP 1 po BID x 7 days KEFLEX 500 MG CAP 662497 CEPHALEXIN Inactive Immunizations Vaccine Administration Date Value [...] Fluvirin, Fluarix, Agriflu(>=18 yo)) Fluzone (>3 yrs.) [[id number]] Influenza, seasonal, injectable pneumococcal immunization administered Pneumovax [...] Panel - Chemistry sodium, serum 137 mmol/L 591-234 2901/10/12 potassium, serum 4.8 mmol/L 3.5-5.2 chloride, serum 102 mmol/L 98-107 carbon dioxide, venous blood 27.6 mmol/L 21.0-32.0 blood glucose 168 mg/dL 65-110 calcium, serum 9.0 mg/dL 8.5-10.1 urea nitrogen, blood 15 mg/dL 7-18 creatinine, serum 1.04 mg/dL 0.55-1.30 sodium, serum 138 mmol/L 979-453 5686/11/11 potassium, serum 4.7 mmol/L 3.5-5.2 chloride, serum [...] leukocyte count, blood 5.8 10^3/MM^3 10*3/mm3 4.6-10.2 leukocyte count, blood 9.6 10^3/MM^3 10*3/mm3 4.6-10.2 hematocrit, blood 39.5 % 41.0-53.0 mean corpuscular volume, RBC 91 fL 80-97 mean corpuscular hemoglobin, RBC 31.2 pg 27.0-31.2 mean corpuscular hemoglobin concentration, RBC 34.1 G/DL % 31.8- 35.4 red blood cell distribution width 15.3 % 11.6-14.8 platelet count 252 10^3/MM^3 10*3/mm3 338-453 4419/10/12 hemoglobin, blood 13.7 g/dL 13.5-17.5 hematocrit, blood 40.2 % 41.0-53.0 mean corpuscular volume, RBC 89 fL 80-97 mean corpuscular hemoglobin, RBC 30.1 pg 27.0-31.2 mean corpuscular hemoglobin concentration, RBC 34.0 G/DL % 31.8- 35.4 red blood cell distribution width 15.6 % 11.6-14.8 platelet count 240 10^3/MM^3 10*3/mm3 924-593 3220/11/11 neutrophils as percent of blood leukocytes 75.0 [...] Acid - Chemistry cholesterol, serum 187 mg/dL 809-387 0896/06/14 triglyceride, serum, fasting 246 mg/dL 30-200 HDL [...] negative Encounters Code Encounter Date Provider Facility CPT-56199 Level 3 Est. Patient 17:40:16 CDT Mima Erazo [facility] CPT-36643 Level 3 Est. Patient 14:34:52 CDT Vanessa Hickey MD [facility] CPT-57375 Level 3 Est. Patient 16:27:51 CDT Mima Erazo [facility] CPT-21122 Level 3 Est. Patient 14:39:00 CYLINDER DYER Vanessa Hickey MD [facility] CPT-14611 Level 2 Est. Patient 18:43:34 CDT Mima Erazo [facility] CPT-46434 Level 3 Est. Patient 16:22:09 CDT Cherelle Avila [facility]-64988 Level 4 Est. Patient 17:55:14 CDT Mima Erazo [facility] CPT-74210 Level 2 Est. Patient 17:13:21 CDT Alina Castaneda MD [facility]03452 Level 3 Est. Patient 14:46:15 CDT Vanessa Hickey MD [facility]-92669 Level 3 Est. Patient 09:34:56 CDT Alina Castaneda MD [facility]17748 Level 3 Est. Patient 21:40:19 CDT Mima Erazo [facility]-07901 Level 3 Est. Patient 09:26:40 CDT Marvel Charles [facility]20415 Level 3 Est. Patient 12:36:43 CDT Vanessa Hickey MD [facility]-10857 Level 3 Est. Patient 12:57:49 CDT Vanessa Hickey MD [facility]85857 Level 3 Est. Patient 00:28:25 CDT Alina Castaneda MD [facility]-23134 Level 2 Est. Patient 12:52:14 CDT Alina Castaneda MD [facility]57689 Level 3 Est. Patient 11:51:18 CYLINDER DYER Alina Castaneda MD [facility]99245 Level 3 Est. Patient 10:09:22 CYLINDER DYER Alina Castaneda MD [facility]28764 Level 3 Est. Patient 14:36:26 CYLINDER DYER Marvel Charles [facility]-91261 Level 3 Est. Patient 13:34:47 CYLINDER DYER Alina Castaneda MD [facility]-63521 Level 3 Est. Patient 19:52:08 CYLINDER DYER Alina Castaneda MD [facility]-03750 Level 3 Est. Patient 10:01:51 CYLINDER DYER Brookslashondanivia Araceli [facility]-77724 Level 3 Est. Patient 21:54:06 CDT Vanessa Hickey MD [facility]-94554 Level 3 Est. Patient 08:54:46 CDT Alina Castaneda MD [facility]38672 Level 3 Est. Patient 09:32:11 CDT Marvel Charles [facility]-67092 Level 3 Est. Patient 12:02:49 CDT Alina Castaneda MD [facility]-81658 Level 3 Est. Patient 19:17:33 CDT Alina Castaneda MD [facility]-66420 Level 3 Est. Patient 13:19:10 CDT Marvel [facility]-25758 Level 3 Est. Patient 08:20:05 CDT Alina Castaneda MD [facility]-90122 Level 3 Est. Patient 15:17:18 CDT Alina Castaneda MD [facility]-65651 Level 3 Est. Patient 14:25:36 CYLINDER DYER Brooksjohn [facility]-60248 Level 3 Est. Patient 10:09:15 CYLINDER DYER Brooksjohn [facility]-13237 Level 3 Est. Patient 21:28:43 CDT lAina Castaneda MD [facility]-30755 Level 3 Est. Patient 15:20:11 CDT Maliheh Ziglari [facility]-84249 Level 4 Est. Patient 19:08:12 CDT Alina Castaneda MD [facility]-11294 Level 3 Est. Patient 15:06:39 CDT Brooksnivia [facility]-23584 Level 4 Est. Patient 17:48:15 CDT Alina Castaneda MD [facility]-54450 Level 3 Est. Patient 14:53:49 CDT Alina Castaneda MD [facility]-81293 Level 3 Est. Patient 09:35:16 CDT Alina Castaneda MD [facility]-95144 Level 3 Est. Patient 12:23:22 CDT Alina Castaneda MD [facility]-73925 Level 3 Est. Patient 16:19:15 CDT Alina Castaneda MD [facility]-90841 Level 3 Est. Patient 21:39:56 CYLINDER DYER Alina Castaneda MD [facility]-43733 Level 4 Est. Patient 14:12:56 CYLINDER DYER Alina Castaneda MD [facility]-82728 Level 2 Est. Patient 15:34:57 CYLINDER DYER Alina Castaneda MD [facility]-57937 Level 3 Est. Patient 12:17:04 CYLINDER DYER Alina Castaneda MD [facility]-85016 Level 3 Est. Patient 09:18:18 CYLINDER DYER Marvel [facility]-46846 Level 2 Est. Patient 21:50:24 CDT Alina Castaneda MD [facility]65612 Level 3 Est. Patient 09:17:28 CDT Marvel [facility] CPT-30953 Level 4 Est. Patient 18:54:02 CDT Alina Castaneda MD [facility] CPT-24191 Level 3 Est. Patient 10:47:10 CDT Alina Castaneda MD [facility]-92712 Level 3 Est. Patient 09:22:20 CDT Brooksjohn [facility] CPT-36753 Level 3 Est. Patient 16:39:43 CDT [facility] CPT-75398 Level 3 Est. Patient 16:05:16 CDT Alina Castaneda MD [facility] CPT-84187 Level 3 Est. Patient 00:29:15 CDT Alina Castaneda MD [facility] CPT-50209 Level 3 Est. Patient 10:49:22 CYLINDER DYER Marvel [facility] CPT-01852 Level 3 Est. Patient 21:30:19 CYLINDER DYER Alina Castaneda MD [facility] CPT-50626 Level 4 Est. Patient 17:04:11 CYLINDER DYER Brooksjohn [facility] CPT-91160 Level 3 Est. Patient 15:34:11 CYLINDER DYER Marvel [facility] CPT-48832 Level 2 Est. Patient 12:51:58 CYLINDER DYER Alina Castaneda MD PhD [facility] CPT-77750 Level 3 Est. Patient 13:20:01 CYLINDER DYER Alina Castaneda MD [facility]-14289 Level 3 Est. Patient 09:23:35 CDT Alina Castaneda MD PhD [facility] Procedures Code Procedure Name Date Entry Date Standard Description CPT-TCMM Transitional Care Mgmt-Moderate 10:25:31 CDT CPT-52759 Bladder Scan 14:34:53 CDT CPT-18610 Bladder Scan 14:39:01 CYLINDER DYER CPT-TCMM Transitional Care Mgmt-Moderate 10:30:19 CYLINDER DYER CPT-45127 Bladder Scan 12:36:44 CDT CPT-76592 Bladder Scan 21:54:06 CDT CPT-G0008 Administration of Influenza Virus Vaccine 13:05:26 CDT CPT-82544 Fluzone Quadrivalent Intramuscular Suspension 0.5 ML 13: 05:26 CDT CPT-46187 Administration single or combination vaccine inc oral 11 :49:51 CDT CPT-74306 Pneumovax 11:49:51 CDT CPT-24905 Ribs unilateral 2V 12:37:22 CYLINDER DYER CPT-03133 Chest 2V Frontal and Lat 17:15:26 CDT CPT-07917 Abx/Therapy Injection 18:54:02 CDT CPT-J0696 Rocephin 1000 mg (Ceftriaxone) 16:00:32 CDT CPT-99838 Chest 2V Frontal and Lat 15:26:45 CDT CPT-41600 Chest 2V Frontal and Lat 10:23:27 CDT CPT-51074 Venipuncture Draw Fee 10:11:00 CDT CPT-75968 Administration single or combination vaccine inc oral 11 :56:38 CDT CPT-48288 Influenza split virus > age 3 11:56:38 CDT CPT-77096 Venipuncture Draw Fee 08:49:54 CYLINDER DYER CPT-06895 EKG Trac and Interp 17:54:19 CYLINDER DYER
--- OUTSIDE RECORDS SUMMARY | 2018-07-02 17:49 | XMS REPORT | Clinical Summary ---
Author Author Admin, TERELL Organization [facility] Address Unknown Phone Unavailable Allergies, [...] positional vertigo 386.11 Active Mima Erazo MANAGER LOCATION Benign paroxysmal positional vertigo Vertigo, benign paroxysmal position 386.11 Inactive Mima Erazo MANAGER LOCATION Benign paroxysmal positional vertigo High-risk sexual behavior V69.2 Active Alina Castaneda MD PhD High-risk sexual behavior Erectile dysfunction 302.72 Active Alina Castaneda MD PhD Psychosexual dysfunction with inhibited sexual excitement Constipation 564.00 Active Alina Castaneda MD PhD Constipation, unspecified Skin lesion 709.9 Active Alina Castaneda MD PhD Unspecified disorder of skin and subcutaneous tissue Malaise and fatigue 780.79 Active Cherelle Speaks MANAGER LOCATION Other malaise and fatigue Diarrhea 787.91 Active Cherelle Speaks MANAGER LOCATION Diarrhea PHARYNGITIS 462 Active Cherelle Speaks MANAGER LOCATION Acute pharyngitis Colitis 558.9 Active Mima Erazo MANAGER LOCATION Other and unspecified noninfectious gastroenteritis and colitis WOUND, OPEN, NOSE ICD-873.20 Inactive Alina Castaneda MD PhD DIABETES, TYPE 2 ICD-250.00 Inactive Alina Castaneda MD PhD HYPERTENSION ICD-401.9 Inactive Alina Castaneda MD PhD URI ICD-465.9 Inactive Alina Castaneda MD PhD CHEST PAIN ICD-786.50 Inactive Alina Castaneda MD PhD FH STROKE ICD-V17.1 Inactive Marvel Charles MALT HOUSE LOADER FATIGUE ICD-780.79 Inactive Alina Castaneda MD PhD [...] mouth twice daily, for constipation DOCUSATE SODIUM 08186874129 No Longer Active Mima Erazo APRN Active FLONASE ALLERGY RELIEF 50 MCG/ACT NASAL SUSP One spray each nostril BID x 1 week then daily FLUTICASONE PROPIONATE 73479061845 Active Mimacecily Erazo APRN Active BD PEN NEEDLE MINI U/F 31G X 5 MM MISC 4 a day INSULIN PEN NEEDLE 21230987922 Active Mallashondaeh Ziglari MALT HOUSE LOADER Active AMITIZA 24 MCG ORAL CAPS Take one capsule BID for constipation LUBIPROSTONE 90186594777 Active Mimacecily Erazo APRN Active LEVEMIR FLEXTOUCH 100 UNIT/ML SC SOPN 75 units SQ each evening, for diabetes INSULIN DETEMIR 77297919160 Active Mima Erazo APRN Active TRUEPLUS LANCETS 30G MISC 3 a day LANCETS 40017000099 Active Mallashondaeh Ziglari MALT HOUSE LOADER Active TOLTERODINE TARTRATE 2 MG TABS 1 pill twice daily, for bladder TOLTERODINE TARTRATE 08751810810 No Longer Active Vanessa Hickey MD Active AMITIZA 24 MCG ORAL CAPS Take one capsule BID for constipation. LUBIPROSTONE 25946408938 No Longer Active Vanessa Hickey MD Active LOMOTIL 2.5-0.025 MG ORAL TABS take 1-2 tabs PO after each stool, no more than 8 in 24 hours DIPHENOXYLATE-ATROPINE 03290684319 Active Grace Nascimento RMA Active FLUVOXAMINE MALEATE 100 MG ORAL TABS take one tab every AM et HS, and take 1/ 2 tab at noon FLUVOXAMINE MALEATE 66987039049 Active Gracekailee Nascimento RMA Active METOPROLOL SUCCINATE 100 MG [id number] 1 by mouth daily for blood pressure METOPROLOL SUCCINATE 47297770896 No Longer Active Grace Nascimento RMA Active METFORMIN HCL ER 500 MG [id number]-QJW Take three tablets by mouth everyday METFORMIN HCL 98093927536 No Longer Active Grace Nascimento RMA Active LOVAZA 1 GM CAPS 4 daily (for triglycerides) OMEGA-3- ACID ETHYL ESTERS 68681660237 No Longer Active Grace Nascimento RMA Active TRAZODONE HCL 100 MG ORAL TABS 1 tab by mouth for sleep TRAZODONE HCL 95066493192 No Longer Active Grace Nascimento RMA Active NOVOFINE 32G X 6 MM MISC use one four times per day INSULIN PEN NEEDLE 20393976048 No Longer Active Grace Nascimento RMA Active BACTROBAN 2 % CREAM Apply to affected area BID for up to 10 days MUPIROCIN CALCIUM 89985393423 No Longer Active Grace Nascimento RMA Active ZOFRAN 4 MG TABS 1 po q4hr PRN Nausea ONDANSETRON HCL 36284827115 Active Salina Han RMA Active KEFLEX 500 MG CAP 1 po BID x 7 days CEPHALEXIN 07714275183 No Longer Active Cherelle Avila APRN Active FLUVOXAMINE MALEATE 100 MG TABS Take one (1) tablet by mouth am, 1/2 at noon FLUVOXAMINE MALEATE 58113735299 No Longer Active Mima Erazo MANAGER LOCATION Active CORICIDIN HBP CONGESTION/COUGH 10-200 MG ORAL CAPS Take as directed on box as needed for cold/flu symptoms DEXTROMETHORPHAN-GUAIFENESIN 61574611413 Active Cherelle Speaks MANAGER LOCATION Active OMEGA-3 300 MG ORAL CAPS 4 caps by mouth daily OMEGA-3 FATTY ACIDS 79943345336 Active Mima Erazo MANAGER LOCATION Active FLUVOXAMINE MALEATE 100 MG ORAL TABS Take 1/2 tab at noon FLUVOXAMINE MALEATE 55296465505 No Longer Active Cherelle Speaks MANAGER LOCATION Active [facility] LUBRICANT EYE DROPS 0.4-0.3 % OPHTH SOLN POLYETHYL GLYCOL-PROPYL GLYCOL 57891937902 Active Mima Erazo MANAGER LOCATION Active CLONAZEPAM 1 MG TABS 1/2 pill by mouth three times daily CLONAZEPAM 69203906059 Active Mason Loredo MD Active MIRALAX POWD 17g by mouth daily, for constipation POLYETHYLENE GLYCOL 3350 95053186169 Active Alina Castaneda MD PhD Active HYDROCODONE-ACETAMINOPHEN 5-325 MG TABS 2 tabs by mouth three times daily for pain HYDROCODONE-ACETAMINOPHEN 26284959500 Active Mima Erazo MANAGER LOCATION Active HUMALOG KWIKPEN 100 UNIT/ML SC SOPN 20 units with breakfast, 10 units with lunch, 10 units with dinner, for diabetes INSULIN LISPRO (HUMAN ) 69675587472 Active Alina Castaneda MD PhD Active LATUDA 120 MG ORAL TABS 1 pill by mouth nightly LURASIDONE HCL 82084188656 Active Alina Castaneda MD PhD Active TRUETEST TEST STRP check blood sugars 3x/day GLUCOSE BLOOD 16235687185 Active Marvel Charles MALT HOUSE LOADER Active ACCU-CHEK ROSA UZMA Use device to check blood sugars BLOOD GLUCOSE MONITORING SUPPL 69061551002 No Longer Active Marvel Charles MALT HOUSE LOADER Active ACCU-CHEK ROSA INVITR STRP use strips with device to check blood sugars 3 times daily GLUCOSE BLOOD 16231354275 No Longer Active Marvel MARROQUIN Active VERAPAMIL HCL ER 180 MG ORAL CR-TABS 1 pill by mouth twice daily, for migraine prevention VERAPAMIL HCL 15773492671 Active CRYSTAL Rodrigues Active CYCLOBENZAPRINE HCL 10 MG TABS 1 tablet by mouth three times daily, scheduled CYCLOBENZAPRINE HCL 26627235306 No Longer Active Alina Castaneda MD PhD Active HUMALOG 100 UNIT/ML SOLN Take 20 units with breakfast, 10u with lunch and suppetr. INSULIN LISPRO (HUMAN) 88160955686 No Longer Active Alina Castaneda MD PhD Active TRUETEST TEST STRP check sugars 4x/day GLUCOSE BLOOD 16723979626 No Longer Active Alina Castaneda MD PhD Active MORPHINE SULFATE 30 MG TABS 1 pill by mouth twice daily, for pain MORPHINE SULFATE 70616807089 Active Mason Loredo MD Active ACYCLOVIR 400 MG ORAL TABS 1 pill three times daily x 5 days, for cold sore outbreak ACYCLOVIR 39375166308 No Longer Active Alina Castaneda MD PhD Active PENICILLIN V POTASSIUM 500 MG TABS 1 pill by mouth three times daily PENICILLIN V POTASSIUM 55057020743 No Longer Active Alina Castaneda MD PhD Active UROXATRAL 10 MG [id number] Take 1 tablet by mouth daily ALFUZOSIN HCL 20569391267 No Longer Active Alina Castaneda MD PhD Active THIOTHIXENE 5 MG CAPS by mouth twice a day THIOTHIXENE 80427072241 No Longer Active Alina Castaneda MD PhD Active ZYPREXA 7.5 MG TABS 1 at HS OLANZAPINE 03089445305 No Longer Active Alina Castaneda MD PhD Active BD INSULIN SYRINGE 28G X 1/2" 1 ML MISC 1 four times per day INSULIN SYRINGE-NEEDLE U-100 28666644045 Active Marvle MARROQUIN Active DETROL LA 4 MG LA27I-[id number] Take 1 tablet by mouth daily TOLTERODINE TARTRATE 13944687385 No Longer Active Alina Castaneda MD PhD Active TERESE CONTOUR TEST STRP monitor blood sugars 3x/day GLUCOSE BLOOD 03163539237 No Longer Active Alina Castaneda MD PhD Active EQL TRUETEST TEST STRP Test blood sugar TID GLUCOSE BLOOD 25643902585 No Longer Active Alina Castaneda MD PhD Active FLUTICASONE PROPIONATE 50 MCG/ACT SUSP 2 sprays each nostril qDay x 30 days FLUTICASONE PROPIONATE 93593512845 No Longer Active Alina Castaneda MD PhD Active IBUPROFEN 200 MG TABS 1 Q 6 hr. PRN IBUPROFEN 86290380666 No Longer Active Alina Castaneda MD PhD Active NIACIN ER 500 MG CR-TABS 4 qHS (for triglycerides) NIACIN 37868906570 No Longer Active Alina Castaneda MD PhD Active ALFUZOSIN HCL ER 10 MG [id number]-EWC 1 tablet daily ALFUZOSIN HCL 31487254804 Active CRYSTAL Rodrigues Active SAPHRIS 5 MG SUBL by mouth twice a day ASENAPINE MALEATE 71890663430 No Longer Active Marvel MARROQUIN Active ACETAMINOPHEN 500 MG TABS 2 Q 6 hr. PRN ACETAMINOPHEN 06303237417 No Longer Active Marvel MARROQUIN Active ORPHENADRINE CITRATE ER 100 MG [id number] 1 every 12 hr. as needed ORPHENADRINE CITRATE 11434943483 No Longer Active Alina Castaneda MD PhD Active NIACIN CR 500 MG CR-TABS 2 qHS NIACIN 11430486622 No Longer Active Alina Castaneda MD PhD Active AMOXICILLIN 500 MG CAPS 2 po BID x 10 days AMOXICILLIN 63803960637 No Longer Active Alina Castaneda MD PhD Active HYDROCODONE-ACETAMINOPHEN 7.5-325 MG TABS 1 four times a day as needed for pain HYDROCODONE-ACETAMINOPHEN 21095244653 No Longer Active Alina Castaneda MD PhD Active DOXEPIN HCL 10 MG CAPS Take 1 tablet by mouth daily DOXEPIN HCL 85287971132 No Longer Active Salina Han A Active NAVANE 10 MG CAPS 1/2 tablet twice a day THIOTHIXENE No Longer Active Salina Han A Active CYCLOBENZAPRINE HCL 10 MG TABS 1/2 tablet by mouth every 8 hours as needed for muscle spasms CYCLOBENZAPRINE HCL 30157602779 No Longer Active Alina Castaneda MD PhD Active BACTROBAN 2 % CREAM apply to ear and nose twice daily MUPIROCIN CALCIUM 44492092956 No Longer Active Alina Castaneda MD PhD Active HYDROCODONE-ACETAMINOPHEN 5-325 MG TABS take one tablet by mouth every four hours as needed for pain HYDROCODONE-ACETAMINOPHEN 59746142920 No Longer Active Alina Castaneda MD PhD Active ZOLPIDEM TARTRATE 10 MG TABS take at bedtime ZOLPIDEM TARTRATE 63879061809 Active Alina Castaneda MD PhD Active ZYPREXA 5 MG TABS take one tablet by mouth every evening OLANZAPINE 23299648456 No Longer Active Alina Castaneda MD PhD Active ALBUTEROL SULFATE 0.083 % NEBU SOLN one vial per nebulizer TID and PRN cough/ soa ALBUTEROL SULFATE 06790308225 No Longer Active Alina Castaneda MD PhD Active GUAIFENESIN 600 MG ZA73X-FAB 1 tablet by mouth twice daily if needed for cough GUAIFENESIN 23387087672 No Longer Active Marvel MARROQUIN Active AZITHROMYCIN 500 MG SOLR 1 po q day AZITHROMYCIN 67286038657 No Longer Active Alina Castaneda MD PhD Active PROMETHAZINE-CODEINE 6.25-10 MG/5ML SYRP 1 tsp po q 6 hours prn cough PROMETHAZINE-CODEINE 40834925822 No Longer Active Alina Castaneda MD PhD Active CEFDINIR 300 MG CAPS by mouth twice a day CEFDINIR 25444096511 No Longer Active Alina Castaneda MD PhD Active METFORMIN HCL 500 MG [id number] Take 3 tablets by mouth everyday METFORMIN HCL 83526330643 No Longer Active Alina Castaneda MD PhD Active LEVEMIR 100 UNIT/ML SOLN 90 units SQ qHS INSULIN DETEMIR 31291543062 No Longer Active Marvel MARROQUIN Active TOPROL XL 100 MG HC16W-XZZ 1 @ HS METOPROLOL SUCCINATE 29699489473 No Longer Active Marvel MARROQUIN Active ALLOPURINOL 300 MG TABS Take one by mouth daily ALLOPURINOL 05442960100 Active Mima Erazo MANAGER LOCATION Active ZYPREXA 10 MG TABS Take one by mouth daily OLANZAPINE 70908415369 No Longer Active Alina Castaneda MD PhD Active NOVOLOG 100 UNIT/ML SOLN 40 units with every meal INSULIN ASPART 29027884848 No Longer Active Alina Castaneda MD PhD Active VERAPAMIL HCL CR 120 MG TAB CR 1 qPM VERAPAMIL HCL 18040244589 No Longer Active Salina ROJAS Active ZYPREXA 15 MG TABS Take 1 tablet by mouth daily OLANZAPINE 47559996178 No Longer Active Marvel MARROQUIN Active LISINOPRIL 20 MG TABS 1 BID LISINOPRIL 22051757410 Active Alina Catsaneda MD PhD Active ALBUTEROL SULFATE (2.5 MG/3ML) 0.083% NEBU 1 neb tid and prn cough ALBUTEROL SULFATE 85729365693 No Longer Active Alina Castaneda MD PhD Active TRAVATAN Z 0.004 % SOLN 1 gtt each eye daily TRAVOPROST 24032332684 Active CRYSTAL Suarez Active LANTUS 100 UNIT/ML SOLN 60 units sq q hs INSULIN GLARGINE 91843271224 No Longer Active CRYSTAL Suarez Active ALBUTEROL SULFATE (2.5 MG/3ML) 0.083% NEBU 1 neb tid and prn cough ALBUTEROL SULFATE (2.5 MG/3ML) 0.083% NEBU 751984 ALBUTEROL SULFATE Inactive ZYPREXA 15 MG TABS Take 1 tablet by mouth daily ZYPREXA 15 MG TABS 056360 OLANZAPINE Inactive VERAPAMIL HCL CR 120 MG TAB CR 1 qPM VERAPAMIL HCL CR 120 MG TAB CR VERAPAMIL HCL Inactive ZYPREXA 10 MG TABS Take one by mouth daily ZYPREXA 10 MG TABS 762795 OLANZAPINE Inactive TOPROL XL 100 MG [id number] 1 @ HS TOPROL XL 100 MG [id number]-ZQX METOPROLOL SUCCINATE Inactive LEVEMIR 100 UNIT/ML SOLN 90 units SQ qHS LEVEMIR 100 UNIT/ML SOLN INSULIN DETEMIR Inactive PROMETHAZINE-CODEINE 6.25-10 MG/5ML SYRP 1 tsp po q 6 hours prn cough PROMETHAZINE-CODEINE 6.25-10 MG/5ML SYRP 311258 PROMETHAZINE- CODEINE Inactive GUAIFENESIN 600 MG FR47Q-EIZ 1 tablet by mouth twice daily if needed for cough GUAIFENESIN 600 MG [id number]-AWZ GUAIFENESIN Inactive ALBUTEROL SULFATE 0.083 % NEBU SOLN one vial per nebulizer TID and PRN cough/ soa ALBUTEROL SULFATE 0.083 % NEBU SOLN 774859 ALBUTEROL SULFATE Inactive ZYPREXA 5 MG TABS take one tablet by mouth every evening ZYPREXA 5 MG TABS 260336 OLANZAPINE Inactive HYDROCODONE-ACETAMINOPHEN 5-325 MG TABS take one tablet by mouth every four hours as needed for pain HYDROCODONE-ACETAMINOPHEN 5-325 MG TABS 240985 HYDROCODONE-ACETAMINOPHEN Inactive BACTROBAN 2 % CREAM apply to ear and nose twice daily BACTROBAN 2 % CREAM 751787 MUPIROCIN CALCIUM Inactive CYCLOBENZAPRINE HCL 10 MG TABS 1/2 tablet by mouth every 8 hours as needed for muscle spasms CYCLOBENZAPRINE HCL 10 MG TABS 057994 CYCLOBENZAPRINE HCL Inactive NAVANE 10 MG CAPS 1/2 tablet twice a day NAVANE 10 MG CAPS THIOTHIXENE Inactive DOXEPIN HCL 10 MG CAPS Take 1 tablet by mouth daily DOXEPIN HCL 10 MG CAPS 6198852 DOXEPIN HCL Inactive HYDROCODONE-ACETAMINOPHEN 7.5-325 MG TABS 1 four times a day as needed for pain HYDROCODONE-ACETAMINOPHEN 7.5-325 MG TABS 328139 HYDROCODONE-ACETAMINOPHEN Inactive NIACIN CR 500 MG CR-TABS 2 qHS NIACIN CR 500 MG CR- TABS NIACIN Inactive ORPHENADRINE CITRATE ER 100 MG [id number] 1 every 12 hr. as needed ORPHENADRINE CITRATE ER 100 MG SC75O-QJK ORPHENADRINE CITRATE Inactive ACETAMINOPHEN 500 MG TABS 2 Q 6 hr. PRN ACETAMINOPHEN 500 MG TABS 838231 ACETAMINOPHEN Inactive SAPHRIS 5 MG SUBL by mouth twice a day SAPHRIS 5 MG SUBL ASENAPINE MALEATE Inactive NIACIN ER 500 MG CR-TABS 4 qHS (for triglycerides) NIACIN ER 500 MG CR-TABS NIACIN Inactive IBUPROFEN 200 MG TABS 1 Q 6 hr. PRN IBUPROFEN 200 MG TABS 687867 IBUPROFEN Inactive FLUTICASONE PROPIONATE 50 MCG/ACT SUSP 2 sprays each nostril qDay x 30 days FLUTICASONE PROPIONATE 50 MCG/ACT SUSP 445491 FLUTICASONE PROPIONATE Inactive EQL TRUETEST TEST STRP Test blood sugar TID EQL TRUETEST TEST STRP GLUCOSE BLOOD Inactive TERESE CONTOUR TEST STRP monitor blood sugars 3x/day TERESE CONTOUR TEST STRP GLUCOSE BLOOD Inactive DETROL LA 4 MG [id number] Take 1 tablet by mouth daily DETROL LA 4 MG [id number]-[id number] TOLTERODINE TARTRATE Inactive ZYPREXA 7.5 MG TABS 1 at HS ZYPREXA 7.5 MG TABS 865999 OLANZAPINE Inactive THIOTHIXENE 5 MG CAPS by mouth twice a day THIOTHIXENE 5 MG CAPS 687580 THIOTHIXENE Inactive UROXATRAL 10 MG [id number]-ZPJ Take 1 tablet by mouth daily UROXATRAL 10 MG SN95L-RAY ALFUZOSIN HCL Inactive ACYCLOVIR 400 MG ORAL TABS 1 pill three times daily x 5 days, for cold sore outbreak ACYCLOVIR 400 MG ORAL TABS 662722 ACYCLOVIR Inactive TRUETEST TEST STRP check sugars 4x/day TRUETEST TEST STRP GLUCOSE BLOOD Inactive HUMALOG 100 UNIT/ML SOLN Take 20 units with breakfast, 10u with lunch and suppetr. HUMALOG 100 UNIT/ML SOLN INSULIN LISPRO ( HUMAN) Inactive CYCLOBENZAPRINE HCL 10 MG TABS 1 tablet by mouth three times daily, scheduled CYCLOBENZAPRINE HCL 10 MG TABS 329270 CYCLOBENZAPRINE HCL Inactive ACCU-CHEK ROSA INVITR STRP use strips with device to check blood sugars 3 times daily ACCU-CHEK ROSA INVITR STRP GLUCOSE BLOOD Inactive ACCU-CHEK ROSA UZMA Use device to check blood sugars ACCU-CHEK ROSA UZMA BLOOD GLUCOSE MONITORING SUPPL Inactive FLUVOXAMINE MALEATE 100 MG ORAL TABS Take 1/2 tab at noon FLUVOXAMINE MALEATE 100 MG ORAL TABS 290756 FLUVOXAMINE MALEATE Inactive FLUVOXAMINE MALEATE 100 MG TABS Take one (1) tablet by mouth am, 1/2 at noon FLUVOXAMINE MALEATE 100 MG TABS 423771 FLUVOXAMINE MALEATE Inactive BACTROBAN 2 % CREAM Apply to affected area BID for up to 10 days BACTROBAN 2 % CREAM 149967 MUPIROCIN CALCIUM Inactive NOVOFINE 32G X 6 MM MISC use one four times per day NOVOFINE 32G X 6 MM MISC INSULIN PEN NEEDLE Inactive TRAZODONE HCL 100 MG ORAL TABS 1 tab by mouth for sleep TRAZODONE HCL 100 MG ORAL TABS 903368 TRAZODONE HCL Inactive LOVAZA 1 GM CAPS 4 daily (for triglycerides) LOVAZA 1 GM CAPS 341646 VCODF-2-MVDU ETHYL ESTERS Inactive METFORMIN HCL ER 500 MG GP93G-PIT Take three tablets by mouth everyday METFORMIN HCL ER 500 MG NL47M-CMS METFORMIN HCL Inactive METOPROLOL SUCCINATE 100 MG NC90X-KMD 1 by mouth daily for blood pressure METOPROLOL SUCCINATE 100 MG VG46R-ZAM METOPROLOL SUCCINATE Inactive AMITIZA 24 MCG ORAL CAPS Take one capsule BID for constipation. AMITIZA 24 MCG ORAL CAPS LUBIPROSTONE Inactive TOLTERODINE TARTRATE 2 MG TABS 1 pill twice daily, for bladder TOLTERODINE TARTRATE 2 MG TABS 810392 TOLTERODINE TARTRATE Inactive COLACE 100 MG CAPS 1 pill by mouth twice daily, for constipation COLACE 100 MG CAPS 3158379 DOCUSATE SODIUM Inactive CEFDINIR 300 MG CAPS by mouth twice a day CEFDINIR 300 MG CAPS 882589 CEFDINIR Inactive AZITHROMYCIN 500 MG SOLR 1 po q day AZITHROMYCIN 500 MG SOLR 99803798004 AZITHROMYCIN Inactive AMOXICILLIN 500 MG CAPS 2 po BID x 10 days AMOXICILLIN 500 MG CAPS 403796 AMOXICILLIN Inactive PENICILLIN V POTASSIUM 500 MG TABS 1 pill by mouth three times daily PENICILLIN V POTASSIUM 500 MG TABS 830170 PENICILLIN V POTASSIUM Inactive KEFLEX 500 MG CAP 1 po BID x 7 days KEFLEX 500 MG CAP 139636 CEPHALEXIN Inactive Immunizations Vaccine Administration Date Value [...] Fluvirin, Fluarix, Agriflu(>=18 yo)) Fluzone (>3 yrs.) [[id number]] Influenza, seasonal, injectable pneumococcal immunization administered Pneumovax [...] Panel - Chemistry sodium, serum 137 mmol/L 320-296 4704/10/12 potassium, serum 4.8 mmol/L 3.5-5.2 chloride, serum 102 mmol/L 98-107 carbon dioxide, venous blood 27.6 mmol/L 21.0-32.0 blood glucose 168 mg/dL 65-110 calcium, serum 9.0 mg/dL 8.5-10.1 urea nitrogen, blood 15 mg/dL 7-18 creatinine, serum 1.04 mg/dL 0.55-1.30 sodium, serum 138 mmol/L 356-255 6505/11/11 potassium, serum 4.7 mmol/L 3.5-5.2 chloride, serum [...] % 11.6-14.8 platelet count 240 10^3/MM^3 10*3/mm3 373-289 0797/11/11 leukocyte count, blood 9.6 10^3/MM^3 10*3/mm3 4.6-10.2 [...] Acid - Chemistry cholesterol, serum 187 mg/dL 953-412 6992/06/14 triglyceride, serum, fasting 246 mg/dL 30-200 HDL [...] negative Encounters Code Encounter Date Provider Facility CPT-78258 Level 3 Est. Patient 16:27:51 CDT Mima Erazo [facility]-63763 Level 3 Est. Patient 14:39:00 CHANNEL SALES MANAGER Vanessa Hickey MD [facility]-96702 Level 2 Est. Patient 18:43:34 CDT Mima Erazo [facility] CPT-09011 Level 3 Est. Patient 16:22:09 CDT Cherelle Avila [facility] CPT-15489 Level 4 Est. Patient 17:55:14 CDT Mima Erazo [facility] CPT-43380 Level 2 Est. Patient 17:13:21 CDT Alina Castaneda MD [facility]-24209 Level 3 Est. Patient 14:46:15 CDT Vanessa Hickey MD [facility]-83732 Level 3 Est. Patient 09:34:56 CDT Alina Castaneda MD [facility]88028 Level 3 Est. Patient 21:40:19 CDT Mima Erazo [facility] CPT-26411 Level 3 Est. Patient 09:26:40 CDT Marvel Charles [facility]-59353 Level 3 Est. Patient 12:36:43 CDT Vanessa Hickey MD [facility]-57121 Level 3 Est. Patient 12:57:49 CDT Vanessa Hickey MD [facility]-91389 Level 3 Est. Patient 00:28:25 CDT Alina Castaneda MD [facility]14346 Level 2 Est. Patient 12:52:14 CDT Alina Castaneda MD [facility]69103 Level 3 Est. Patient 11:51:18 CHANNEL SALES MANAGER Alina Castaneda MD [facility]-31735 Level 3 Est. Patient 10:09:22 CHANNEL SALES MANAGER Alina Castaneda MD [facility]-89122 Level 3 Est. Patient 14:36:26 CHANNEL SALES MANAGER Marvel Charles [facility]-23790 Level 3 Est. Patient 13:34:47 CHANNEL SALES MANAGER Alina Castaneda MD [facility]16020 Level 3 Est. Patient 19:52:08 CHANNEL SALES MANAGER Alina Castaneda MD [facility]14308 Level 3 Est. Patient 10:01:51 CHANNEL SALES MANAGER Marvel Charles [facility]-74723 Level 3 Est. Patient 21:54:06 CDT Vanessa Hickey MD [facility]-17898 Level 3 Est. Patient 08:54:46 CDT Alina Castaneda MD [facility]56838 Level 3 Est. Patient 09:32:11 CDT Marvel Charles [facility]-87331 Level 3 Est. Patient 12:02:49 CDT Alina Castaneda MD [facility]99130 Level 3 Est. Patient 19:17:33 CDT Alina Castaneda MD [facility]-83431 Level 3 Est. Patient 13:19:10 CDT Marvel Charles [facility]-03619 Level 3 Est. Patient 08:20:05 CDT Alina Castaneda MD [facility]03737 Level 3 Est. Patient 15:17:18 CDT Alina Castaneda MD [facility]12472 Level 3 Est. Patient 14:25:36 CHANNEL SALES MANAGER Marvel Charles [facility]56188 Level 3 Est. Patient 10:09:15 CHANNEL SALES MANAGER Marvel Charles [facility] CPT-78662 Level 3 Est. Patient 21:28:43 CDT Alina Castaneda MD [facility] CPT-10375 Level 3 Est. Patient 15:20:11 CDT Marvel Thurstonestela [facility] CPT-41675 Level 4 Est. Patient 19:08:12 CDT Alina Castaneda MD [facility] CPT-18300 Level 3 Est. Patient 15:06:39 CDT Marvel Gurdeepajayestela [facility] CPT-95102 Level 4 Est. Patient 17:48:15 CDT Alina Castaneda MD [facility] CPT-38532 Level 3 Est. Patient 14:53:49 CDT Alina Castaneda MD [facility] CPT-30639 Level 3 Est. Patient 09:35:16 CDT Alina Castaneda MD [facility] CPT-71922 Level 3 Est. Patient 12:23:22 CDT Alina Castaneda MD [facility] CPT-25313 Level 3 Est. Patient 16:19:15 CDT Alina Castaneda MD [facility] CPT-31349 Level 3 Est. Patient 21:39:56 CHANNEL SALES MANAGER Alina Castaneda MD [facility] CPT-45382 Level 4 Est. Patient 14:12:56 CHANNEL SALES MANAGER Alina Castaneda MD [facility]-49286 Level 2 Est. Patient 15:34:57 CHANNEL SALES MANAGER Alina Castaneda MD [facility] CPT-53525 Level 3 Est. Patient 12:17:04 CHANNEL SALES MANAGER Alina Castaneda MD [facility]-09412 Level 3 Est. Patient 09:18:18 CHANNEL SALES MANAGER Marvel Araceli [facility]-78649 Level 2 Est. Patient 21:50:24 CDT Alina Castaneda MD [facility]91254 Level 3 Est. Patient 09:17:28 CDT Brooksjohn Charles [facility]-49105 Level 4 Est. Patient 18:54:02 CDT Alina Castaneda MD [facility]55647 Level 3 Est. Patient 10:47:10 CDT Alina Castaneda MD [facility]06974 Level 3 Est. Patient 09:22:20 CDT Brookslashondanivia Araceli [facility]-59138 Level 3 Est. Patient 16:39:43 CDT Brooksjohn Charles [facility]-36919 Level 3 Est. Patient 16:05:16 CDT Alina Castaneda MD [facility]78495 Level 3 Est. Patient 00:29:15 CDT Alina Castaneda MD [facility]81858 Level 3 Est. Patient 10:49:22 CHANNEL SALES MANAGER Brooksjohn Charles [facility]-33710 Level 3 Est. Patient 21:30:19 CHANNEL SALES MANAGER Alina Castaneda MD [facility]-43756 Level 4 Est. Patient 17:04:11 CHANNEL SALES MANAGER Marvel Charles [facility]89322 Level 3 Est. Patient 15:34:11 CHANNEL SALES MANAGER Marvel Charles [facility]-96444 Level 2 Est. Patient 12:51:58 CHANNEL SALES MANAGER Alina Castaneda MD PhD [facility] CPT-11855 Level 3 Est. Patient 13:20:01 CHANNEL SALES MANAGER Alina Castaneda MD PhD [facility] CPT-37950 Level 3 Est. Patient 09:23:35 CDT Alina Castaneda MD PhD [facility] [facility] Procedures Code Procedure Name Date Entry Date Standard Description CPT-00895 Bladder Scan 14:39:01 CHANNEL SALES MANAGER CPT-TCMM Transitional Care Mgmt-Moderate 10:30:19 CHANNEL SALES MANAGER CPT-16419 Bladder Scan 12:36:44 CDT CPT-03784 Bladder Scan 21:54:06 CDT CPT-G0008 Administration of Influenza Virus Vaccine 13:05:26 CDT CPT-67883 Fluzone Quadrivalent Intramuscular Suspension 0.5 ML 13: 05:26 CDT CPT-82178 Administration single or combination vaccine inc oral 11 :49:51 CDT CPT-52529 Pneumovax 11:49:51 CDT CPT-34994 Ribs unilateral 2V 12:37:22 CHANNEL SALES MANAGER CPT-47763 Chest 2V Frontal and Lat 17:15:26 CDT CPT-63582 Abx/Therapy Injection 18:54:02 CDT CPT-J0696 Rocephin 1000 mg (Ceftriaxone) 16:00:32 CDT CPT-54723 Chest 2V Frontal and Lat 15:26:45 CDT CPT-17859 Chest 2V Frontal and Lat 10:23:27 CDT CPT-60841 Venipuncture Draw Fee 10:11:00 CDT CPT-08889 Administration single or combination vaccine inc oral 11 :56:38 CDT CPT-87605 Influenza split virus > age 3 11:56:38 CDT CPT-44841 Venipuncture Draw Fee 08:49:54 CHANNEL SALES MANAGER CPT-86893 EKG Trac and Interp 17:54:19 CHANNEL SALES MANAGER
--- OUTSIDE RECORDS SUMMARY | 2018-07-02 17:51 | XMS REPORT | Clinical Summary ---
Author Author Admin, TERELL Organization [facility] Address Unknown Phone Unavailable Allergies, Adverse [...] 10u lunch and supper INSULIN LISPRO (HUMAN) 59284291289 Active Marvel MENDOZAP Active LATUDA 120 MG ORAL TABS 1 pill by mouth nightly LURASIDONE HCL 30024534281 Active Alina Castaneda MD PhD Active COLACE 100 MG CAPS 1 pill by mouth twice daily, for constipation DOCUSATE SODIUM 69496086016 Active Alina Castaneda MD PhD Active TRUETEST TEST STRP check blood sugars 3x/day GLUCOSE BLOOD 44428924034 Active Mallashondaeh 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 PUBLIC HEALTH AIDE Active ACCU-CHEK ROSA UZMA Use device to check blood sugars BLOOD GLUCOSE MONITORING SUPPL 94277916503 No Longer Active Maliheh Ziglari PUBLIC HEALTH AIDE Active ACCU-CHEK ROSA INVITR STRP use strips with device to check blood sugars 3 times daily GLUCOSE BLOOD 47678222149 No Longer Active Mallashondaeh 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 PUBLIC HEALTH AIDE Active VERAPAMIL HCL ER 180 MG ORAL CR-TABS 1 pill by mouth twice daily, for migraine prevention VERAPAMIL HCL 08740673633 Active Alina Castaneda MD PhD Active CYCLOBENZAPRINE HCL 10 MG TABS 1 tablet by mouth three times daily, scheduled CYCLOBENZAPRINE HCL 40440174961 No Longer Active Alina Castaneda MD PhD Active HUMALOG 100 UNIT/ML SOLN Take 20 units with breakfast, 10u with lunch and suppetr. INSULIN LISPRO (HUMAN) 88648940048 No Longer Active Alina Castaneda MD PhD Active TRUETEST TEST STRP check sugars 4x/day GLUCOSE BLOOD 18861347175 No Longer Active Alina Castaneda MD PhD Active MORPHINE SULFATE 30 MG TABS 1 pill by mouth twice daily, for pain MORPHINE SULFATE 28178341362 Active Mason Loredo MD Active ACYCLOVIR 400 MG ORAL TABS 1 pill three times daily x 5 days, for cold sore outbreak ACYCLOVIR 55441271626 No Longer Active Alina Castaneda MD PhD Active PENICILLIN V POTASSIUM 500 MG TABS 1 pill by mouth three times daily PENICILLIN V POTASSIUM 82423714512 No Longer Active Alina Castaneda MD PhD Active UROXATRAL 10 MG [id number]-NLQ Take 1 tablet by mouth daily ALFUZOSIN HCL 60541064053 No Longer Active Alina Castaneda MD PhD Active THIOTHIXENE 5 MG CAPS by mouth twice a day THIOTHIXENE 04937545913 No Longer Active Alina Castaneda MD PhD Active ZYPREXA 7.5 MG TABS 1 at HS OLANZAPINE 56328366214 No Longer Active Alina Castaneda MD PhD Active LEVEMIR 100 UNIT/ML SOLN Take 70 u at 7-8pm INSULIN DETEMIR 06939612530 Active Marvel Mackenzieglari PUBLIC HEALTH AIDE Active BD INSULIN SYRINGE 28G X 1/2" 1 ML MISC 1 four times per day INSULIN SYRINGE-NEEDLE U-100 04333454827 Active Marvel Mackenzieglari PUBLIC HEALTH AIDE Active TOLTERODINE TARTRATE 2 MG TABS 1 pill twice daily, for bladder TOLTERODINE TARTRATE 28889052966 Active Alina Castaneda MD PhD Active DETROL LA 4 MG [id number] Take 1 tablet by mouth daily TOLTERODINE TARTRATE 04800585132 No Longer Active Alina Castaneda MD PhD Active HYDROCODONE-ACETAMINOPHEN 5-325 MG TABS 2 tabs by mouth three times daily as needed for pain HYDROCODONE-ACETAMINOPHEN 89144400763 Active Alina Castaneda MD PhD Active TERESE CONTOUR TEST STRP monitor blood sugars 3x/day GLUCOSE BLOOD 10506236609 No Longer Active Alina Castaneda MD PhD Active EQL TRUETEST TEST STRP Test blood sugar TID GLUCOSE BLOOD 94895305879 No Longer Active Alina Castaneda MD PhD Active FLUTICASONE PROPIONATE 50 MCG/ACT SUSP 2 sprays each nostril qDay x 30 days FLUTICASONE PROPIONATE 32927430170 No Longer Active Alina Castaneda MD PhD Active IBUPROFEN 200 MG TABS 1 Q 6 hr. PRN IBUPROFEN 45752454321 No Longer Active Alina Castaneda MD PhD Active NIACIN ER 500 MG CR-TABS 4 qHS (for triglycerides) NIACIN 44003759985 No Longer Active Alnia Castaneda MD PhD Active ALFUZOSIN HCL ER 10 MG [id number] 1 tablet daily ALFUZOSIN HCL 59618822853 Active Vanessa Hickey MD Active CLONAZEPAM 1 MG TABS 1 pill by mouth three times daily CLONAZEPAM 90551740260 Active Alina Castaneda MD PhD Active LOVAZA 1 GM CAPS 4 daily (for triglycerides) [id number] ETHYL ESTERS 60802976872 Active Mao Rodriguez MD Active SAPHRIS 5 MG SUBL by mouth twice a day ASENAPINE MALEATE 34889518659 No Longer Active Maljohn Ziglari PUBLIC HEALTH AIDE Active ACETAMINOPHEN 500 MG TABS 2 Q 6 hr. PRN ACETAMINOPHEN 69628792487 No Longer Active Maliheh Ziglari PUBLIC HEALTH AIDE Active ORPHENADRINE CITRATE ER 100 MG IR69L-PKP 1 every 12 hr. as needed ORPHENADRINE CITRATE 98122318792 No Longer Active Alina Castaneda MD PhD Active NIACIN CR 500 MG CR-TABS 2 qHS NIACIN 95325766941 No Longer Active Alina Castaneda MD PhD Active AMOXICILLIN 500 MG CAPS 2 po BID x 10 days AMOXICILLIN 24478491212 No Longer Active Alina Castaneda MD PhD Active HYDROCODONE-ACETAMINOPHEN 7.5-325 MG TABS 1 four times a day as needed for pain HYDROCODONE-ACETAMINOPHEN 42593258484 No Longer Active Alina Castaneda MD PhD Active METFORMIN HCL ER 500 MG [id number]-[id number] Take three tablets by mouth everyday METFORMIN HCL 59702548052 Active Marvel Charles PUBLIC HEALTH AIDE Active DOXEPIN HCL 10 MG CAPS Take 1 tablet by mouth daily DOXEPIN HCL 60315248784 No Longer Active Salina Han [facility] Active NAVANE 10 MG CAPS 1/2 tablet twice a day THIOTHIXENE No Longer Active Salina Han [facility] Active CYCLOBENZAPRINE HCL 10 MG TABS 1/2 tablet by mouth every 8 hours as needed for muscle spasms CYCLOBENZAPRINE HCL 45938755574 No Longer Active Alina Castaneda MD PhD Active BACTROBAN 2 % CREAM apply to ear and nose twice daily MUPIROCIN CALCIUM 23141128028 No Longer Active Alina Castaneda MD PhD Active HYDROCODONE-ACETAMINOPHEN 5-325 MG TABS take one tablet by mouth every four hours as needed for pain HYDROCODONE-ACETAMINOPHEN 46873091896 No Longer Active Alina Castaneda MD PhD Active ZOLPIDEM TARTRATE 10 MG TABS take at bedtime ZOLPIDEM TARTRATE 21003026320 Active Alina Castaneda MD PhD Active ZYPREXA 5 MG TABS take one tablet by mouth every evening OLANZAPINE 13552006556 No Longer Active Alina Castaneda MD PhD Active ALBUTEROL SULFATE 0.083 % NEBU SOLN one vial per nebulizer TID and PRN cough/ soa ALBUTEROL SULFATE 20324780765 No Longer Active Alina Castaneda MD PhD Active GUAIFENESIN 600 MG [id number]-LLK 1 tablet by mouth twice daily if needed for cough GUAIFENESIN 95040517397 No Longer Active Marvel MARROQUIN Active AZITHROMYCIN 500 MG SOLR 1 po q day AZITHROMYCIN 96036098264 No Longer Active Alina Castaneda MD PhD Active METOPROLOL SUCCINATE 100 MG [id number]-XFF 1 by mouth daily for blood pressure METOPROLOL SUCCINATE 23874170789 Active Alina Castaneda MD PhD Active PROMETHAZINE-CODEINE 6.25-10 MG/5ML SYRP 1 tsp po q 6 hours prn cough PROMETHAZINE-CODEINE 16049087949 No Longer Active Alina Castaneda MD PhD Active CEFDINIR 300 MG CAPS by mouth twice a day CEFDINIR 77814849601 No Longer Active Alina Castaneda MD PhD Active METFORMIN HCL 500 MG DI41E-IVR Take 3 tablets by mouth everyday METFORMIN HCL 83808982534 No Longer Active Alina Castaneda MD PhD Active LEVEMIR 100 UNIT/ML SOLN 90 units SQ qHS INSULIN DETEMIR 42612028319 No Longer Active Marvel MARROQUIN Active TOPROL XL 100 MG [id number]-[id number] 1 @ HS METOPROLOL SUCCINATE 77114867464 No Longer Active Marvel MARROQUIN Active ALLOPURINOL 300 MG TABS Take one by mouth daily ALLOPURINOL 80499388178 Active Alina Castaneda MD PhD Active ZYPREXA 10 MG TABS Take one by mouth daily OLANZAPINE 74748547644 No Longer Active Alina Castaneda MD PhD Active NOVOLOG 100 UNIT/ML SOLN 40 units with every meal INSULIN ASPART 25768870604 No Longer Active Alina Castaneda MD PhD Active VERAPAMIL HCL CR 120 MG TAB CR 1 qPM VERAPAMIL HCL 87740805632 No Longer Active Salina Han RMA Active ZYPREXA 15 MG TABS Take 1 tablet by mouth daily OLANZAPINE 37825028797 No Longer Active Marvel Mackenzieanca MARROQUIN Active LISINOPRIL 20 MG TABS 1 BID LISINOPRIL 27938856378 Active Alina Castaneda MD PhD Active ALBUTEROL SULFATE (2.5 MG/3ML) 0.083% NEBU 1 neb tid and prn cough ALBUTEROL SULFATE 73930446315 No Longer Active Alina Castaneda MD PhD Active FLUVOXAMINE MALEATE 100 MG TABS Take one (1) tablet by mouth am, 1/2 at noon, 1 pm FLUVOXAMINE MALEATE 27430521730 Active Alina Castaneda MD PhD Active TRAVATAN Z 0.004 % SOLN 1 gtt each eye daily TRAVOPROST 69750507259 Active CRYSTAL Suarez Active LANTUS 100 UNIT/ML SOLN 60 units sq q hs INSULIN GLARGINE 64816875513 No Longer Active CRYSTAL Suarez Active ALBUTEROL SULFATE (2.5 MG/3ML) 0.083% NEBU 1 neb tid and prn cough ALBUTEROL SULFATE (2.5 MG/3ML) 0.083% NEBU 794734 ALBUTEROL SULFATE Inactive ZYPREXA 15 MG TABS Take 1 tablet by mouth daily ZYPREXA 15 MG TABS 778014 OLANZAPINE Inactive VERAPAMIL HCL CR 120 MG TAB CR 1 qPM VERAPAMIL HCL CR 120 MG TAB CR VERAPAMIL HCL Inactive ZYPREXA 10 MG TABS Take one by mouth daily ZYPREXA 10 MG TABS 681495 OLANZAPINE Inactive TOPROL XL 100 MG [id number] 1 @ HS TOPROL XL 100 MG MA08L-YBW METOPROLOL SUCCINATE Inactive LEVEMIR 100 UNIT/ML SOLN 90 units SQ qHS LEVEMIR 100 UNIT/ML SOLN INSULIN DETEMIR Inactive PROMETHAZINE-CODEINE 6.25-10 MG/5ML SYRP 1 tsp po q 6 hours prn cough PROMETHAZINE-CODEINE 6.25-10 MG/5ML SYRP 950432 PROMETHAZINE- CODEINE Inactive GUAIFENESIN 600 MG [id number]-XIW 1 tablet by mouth twice daily if needed for cough GUAIFENESIN 600 MG PF07A-WKS GUAIFENESIN Inactive ALBUTEROL SULFATE 0.083 % NEBU SOLN one vial per nebulizer TID and PRN cough/ soa ALBUTEROL SULFATE 0.083 % NEBU SOLN 643378 ALBUTEROL SULFATE Inactive ZYPREXA 5 MG TABS take one tablet by mouth every evening ZYPREXA 5 MG TABS 045253 OLANZAPINE Inactive HYDROCODONE-ACETAMINOPHEN 5-325 MG TABS take one tablet by mouth every four hours as needed for pain HYDROCODONE-ACETAMINOPHEN 5-325 MG TABS 808379 HYDROCODONE-ACETAMINOPHEN Inactive BACTROBAN 2 % CREAM apply to ear and nose twice daily BACTROBAN 2 % CREAM 150681 MUPIROCIN CALCIUM Inactive CYCLOBENZAPRINE HCL 10 MG TABS 1/2 tablet by mouth every 8 hours as needed for muscle spasms CYCLOBENZAPRINE HCL 10 MG TABS 269632 CYCLOBENZAPRINE HCL Inactive NAVANE 10 MG CAPS 1/2 tablet twice a day NAVANE 10 MG CAPS THIOTHIXENE Inactive DOXEPIN HCL 10 MG CAPS Take 1 tablet by mouth daily DOXEPIN HCL 10 MG CAPS 9628566 DOXEPIN HCL Inactive HYDROCODONE-ACETAMINOPHEN 7.5-325 MG TABS 1 four times a day as needed for pain HYDROCODONE-ACETAMINOPHEN 7.5-325 MG TABS 987859 HYDROCODONE-ACETAMINOPHEN Inactive NIACIN CR 500 MG CR-TABS 2 qHS NIACIN CR 500 MG CR- TABS NIACIN Inactive ORPHENADRINE CITRATE ER 100 MG [id number] 1 every 12 hr. as needed ORPHENADRINE CITRATE ER 100 MG [id number]-TJZ ORPHENADRINE CITRATE Inactive ACETAMINOPHEN 500 MG TABS 2 Q 6 hr. PRN ACETAMINOPHEN 500 MG TABS 324077 ACETAMINOPHEN Inactive SAPHRIS 5 MG SUBL by mouth twice a day SAPHRIS 5 MG SUBL ASENAPINE MALEATE Inactive NIACIN ER 500 MG CR-TABS 4 qHS (for triglycerides) NIACIN ER 500 MG CR-TABS NIACIN Inactive IBUPROFEN 200 MG TABS 1 Q 6 hr. PRN IBUPROFEN 200 MG TABS 387456 IBUPROFEN Inactive FLUTICASONE PROPIONATE 50 MCG/ACT SUSP 2 sprays each nostril qDay x 30 days FLUTICASONE PROPIONATE 50 MCG/ACT SUSP 101362 FLUTICASONE PROPIONATE Inactive EQL TRUETEST TEST STRP Test blood sugar TID EQL TRUETEST TEST STRP GLUCOSE BLOOD Inactive TERESE CONTOUR TEST STRP monitor blood sugars 3x/day TERESE CONTOUR TEST STRP GLUCOSE BLOOD Inactive DETROL LA 4 MG [id number] Take 1 tablet by mouth daily DETROL LA 4 MG [id number] TOLTERODINE TARTRATE Inactive ZYPREXA 7.5 MG TABS 1 at HS ZYPREXA 7.5 MG TABS 436114 OLANZAPINE Inactive THIOTHIXENE 5 MG CAPS by mouth twice a day THIOTHIXENE 5 MG CAPS 878111 THIOTHIXENE Inactive UROXATRAL 10 MG AP59E-KXG Take 1 tablet by mouth daily UROXATRAL 10 MG [id number]-RPX ALFUZOSIN HCL Inactive ACYCLOVIR 400 MG ORAL TABS 1 pill three times daily x 5 days, for cold sore outbreak ACYCLOVIR 400 MG ORAL TABS 844773 ACYCLOVIR Inactive TRUETEST TEST STRP check sugars 4x/day TRUETEST TEST STRP GLUCOSE BLOOD Inactive HUMALOG 100 UNIT/ML SOLN Take 20 units with breakfast, 10u with lunch and suppetr. HUMALOG 100 UNIT/ML SOLN INSULIN LISPRO ( HUMAN) Inactive CYCLOBENZAPRINE HCL 10 MG TABS 1 tablet by mouth three times daily, scheduled CYCLOBENZAPRINE HCL 10 MG TABS 169943 CYCLOBENZAPRINE HCL Inactive ACCU-CHEK ROSA INVITR STRP use strips with device to check blood sugars 3 times daily ACCU-CHEK ROSA INVITR STRP GLUCOSE BLOOD Inactive ACCU-CHEK ROSA UZMA Use device to check blood sugars ACCU-CHEK ROSA UZMA BLOOD GLUCOSE MONITORING SUPPL Inactive CEFDINIR 300 MG CAPS by mouth twice a day CEFDINIR 300 MG CAPS 465963 CEFDINIR Inactive AZITHROMYCIN 500 MG SOLR 1 po q day AZITHROMYCIN 500 MG SOLR 151721 AZITHROMYCIN Inactive AMOXICILLIN 500 MG CAPS 2 po BID x 10 days AMOXICILLIN 500 MG CAPS 975061 AMOXICILLIN Inactive PENICILLIN V POTASSIUM 500 MG TABS 1 pill by mouth three times daily PENICILLIN V POTASSIUM 500 MG TABS 966885 PENICILLIN V POTASSIUM Inactive Immunizations Vaccine Administration [...] Fluvirin, Fluarix, Agriflu(>=18 yo)) Fluzone (>3 yrs.) [FTX521] Influenza, seasonal, injectable pneumococcal immunization administered Pneumovax [...] HGBA1C - Chemistry sodium, serum 131 mmol/L 704-621 1390/12/30 potassium, serum 5.0 mmol/L 3.5-5.2 chloride, serum 95 mmol/L 98-107 carbon dioxide, venous blood 26.7 mmol/L 21.0-32.0 blood glucose 112 mg/dL 65-110 calcium, serum 9.2 mg/dL 8.5-10.1 urea nitrogen, blood 12 mg/dL 7-18 creatinine, serum 1.10 mg/dL 0.60-1.30 hemoglobin A1C, blood, as % of total hemoglobin 5.8 % 4.3-6.0 sodium, serum 130 mmol/L 681-525 4292/06/09 potassium, serum 4.0 mmol/L 3.5-5.2 chloride, serum 92 mmol/L 98-107 carbon dioxide, venous blood 22.1 mmol/L 21.0-32.0 blood glucose 60 mg/dL 65-110 calcium, serum 9.5 mg/dL 8.5-10.1 urea nitrogen, blood 14 mg/dL 7-18 creatinine, serum 1.30 mg/dL 0.60-1.30 hemoglobin A1C, blood, as % of total hemoglobin 6.0 % 4.3-6.0 Lab Report: Basic Metabolic Panel, HGBA1C, MICROALBUMIN - Chemistry sodium, serum 137 mmol/L 436-696 9636/05/19 potassium, serum 5.2 mmol/L 3.5-5.2 chloride, serum [...] Panel - Chemistry sodium, serum 127 mmol/L 597-462 9224/10/27 potassium, serum 4.1 mmol/L 3.5-5.2 chloride, serum [...] mg/dL Encounters Code Encounter Date Provider Facility CPT-94214 Level 3 Est. Patient 09:26:40 CDT Maliheh Ziglari [facility]-80595 Level 3 Est. Patient 12:36:43 CDT Vanessa Hickey MD [facility]-43218 Level 3 Est. Patient 12:57:49 CDT Vanessa Hickey MD [facility]-76442 Level 3 Est. Patient 00:28:25 CDT Alina Castaneda MD [facility]-11284 Level 2 Est. Patient 12:52:14 CDT Alina Castaneda MD [facility]-48323 Level 3 Est. Patient 11:51:18 NUCLEAR MEDICINE OFFICER Alina Castaneda MD [facility]-25054 Level 3 Est. Patient 10:09:22 NUCLEAR MEDICINE OFFICER Alina Castaneda MD [facility]-10401 Level 3 Est. Patient 14:36:26 NUCLEAR MEDICINE OFFICER Marvel Charles [facility]-16133 Level 3 Est. Patient 13:34:47 NUCLEAR MEDICINE OFFICER Alina Castaneda MD [facility]-94603 Level 3 Est. Patient 19:52:08 NUCLEAR MEDICINE OFFICER Alina Castaneda MD [facility]-26694 Level 3 Est. Patient 10:01:51 NUCLEAR MEDICINE OFFICER Marvel Charles [facility]-40680 Level 3 Est. Patient 21:54:06 CDT Vanessa Hickey MD [facility]-21713 Level 3 Est. Patient 08:54:46 CDT Alina Castaneda MD [facility]-32368 Level 3 Est. Patient 09:32:11 CDT Marvel Charles [facility]-58766 Level 3 Est. Patient 12:02:49 CDT Alina Castaneda MD [facility]20635 Level 3 Est. Patient 19:17:33 CDT Alina Castaneda MD [facility]-70652 Level 3 Est. Patient 13:19:10 CDT Marvel Gurdeepajayestela [facility]-61670 Level 3 Est. Patient 08:20:05 CDT Alina Castaneda MD [facility]-82426 Level 3 Est. Patient 15:17:18 CDT Alina Castaneda MD [facility]-93689 Level 3 Est. Patient 14:25:36 NUCLEAR MEDICINE OFFICER Marvel Charles [facility]-32239 Level 3 Est. Patient 10:09:15 NUCLEAR MEDICINE OFFICER [facility]-59314 Level 3 Est. Patient 21:28:43 CDT Alina Castaneda MD [facility]-47900 Level 3 Est. Patient 15:20:11 [facility]T [facility]-10139 Level 4 Est. Patient 19:08:12 CDT Alina Castaneda MD [facility]-04393 Level 3 Est. Patient 15:06:39 CDT Marvel Araceli [facility]-09948 Level 4 Est. Patient 17:48:15 CDT Alina Castaneda MD [facility]-40250 Level 3 Est. Patient 14:53:49 CDT Alina Castaneda MD [facility]-12126 Level 3 Est. Patient 09:35:16 CDT Alina Castaneda MD [facility]-24270 Level 3 Est. Patient 12:23:22 CDT Alina Castaneda MD [facility]03037 Level 3 Est. Patient 16:19:15 CDT Alina Castaneda MD [facility]-65356 Level 3 Est. Patient 21:39:56 NUCLEAR MEDICINE OFFICER Alina Castaneda MD [facility]-29154 Level 4 Est. Patient 14:12:56 NUCLEAR MEDICINE OFFICER Alina Castaneda MD [facility]-22371 Level 2 Est. Patient 15:34:57 NUCLEAR MEDICINE OFFICER Alina Castaneda MD [facility]-56553 Level 3 Est. Patient 12:17:04 NUCLEAR MEDICINE OFFICER Alina Castaneda MD [facility]20879 Level 3 Est. Patient 09:18:18 NUCLEAR MEDICINE OFFICER [facility]-35756 Level 2 Est. Patient 21:50:24 CDT Alina Castaneda MD [facility]-61198 Level 3 Est. Patient 09:17:28 CDT Marvel Charles [facility]-18037 Level 4 Est. Patient 18:54:02 CDT Alina Castaneda MD [facility]-55999 Level 3 Est. Patient 10:47:10 CDT Alina Castaneda MD [facility]-58738 Level 3 Est. Patient 09:22:20 CDT Marvel Charles [facility]-89312 Level 3 Est. Patient 16:39:43 CDT Marvel Charles [facility]-34963 Level 3 Est. Patient 16:05:16 CDT Alina Castaneda MD [facility]-77443 Level 3 Est. Patient 00:29:15 CDT Alina Castaneda MD [facility]28573 Level 3 Est. Patient 10:49:22 NUCLEAR MEDICINE OFFICER Marvel Charles [facility] CPT-72200 Level 3 Est. Patient 21:30:19 NUCLEAR MEDICINE OFFICER Alina Castaneda MD [facility] CPT-89092 Level 4 Est. Patient 17:04:11 NUCLEAR MEDICINE OFFICER [place] [facility] CPT-96717 Level 3 Est. Patient 15:34:11 NUCLEAR MEDICINE OFFICER Marvel Thurstonestela [facility] CPT-60377 Level 2 Est. Patient 12:51:58 NUCLEAR MEDICINE OFFICER Alina Castaneda MD [facility] CPT-01486 Level 3 Est. Patient 13:20:01 NUCLEAR MEDICINE OFFICER Alina Castaneda MD [facility] CPT-02220 Level 3 Est. Patient 09:23:35 CDT Alina Castaneda MD [facility] Procedures Code Procedure Name Date Entry Date Standard Description CPT-67954 Bladder Scan 12:36:44 CDT CPT-33149 Bladder Scan 21:54:06 CDT CPT-G0008 Administration of Influenza Virus Vaccine 13:05:26 CDT CPT-37757 Fluzone Quadrivalent Intramuscular Suspension 0.5 ML 13: 05:26 CDT CPT-08035 Administration single or combination vaccine inc oral 11 :49:51 CDT CPT-21745 Pneumovax 11:49:51 CDT CPT-50072 Ribs unilateral 2V 12:37:22 NUCLEAR MEDICINE OFFICER CPT-86689 Chest 2V Frontal and Lat 17:15:26 CDT CPT-57351 Abx/Therapy Injection 18:54:02 CDT CPT-J0696 Rocephin 1000 mg (Ceftriaxone) 16:00:32 CDT CPT-30920 Chest 2V Frontal and Lat 15:26:45 CDT CPT-42997 Chest 2V Frontal and Lat 10:23:27 CDT CPT-61645 Venipuncture Draw Fee 10:11:00 CDT CPT-82917 Administration single or combination vaccine inc oral 11 :56:38 CDT CPT-00899 Influenza split virus > age 3 11:56:38 CDT CPT-31276 Venipuncture Draw Fee 08:49:54 NUCLEAR MEDICINE OFFICER CPT-00970 EKG Trac and Interp 17:54:19 NUCLEAR MEDICINE OFFICER
--- OUTSIDE RECORDS SUMMARY | 2018-07-02 17:53 | XMS REPORT | Clinical Summary ---
[...] Tachycardia, unspecified ABNORMAL HEART RHYTHMS 427.9 Inactive Alnia Castaneda MD PhD Cardiac dysrhythmia, unspecified PROBLEMS 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 Erazo ELECTRONIC SYSTEMS TECHNICIAN Benign paroxysmal positional vertigo Vertigo, benign paroxysmal position 386.11 Inactive Mima Erazo ELECTRONIC SYSTEMS TECHNICIAN Benign paroxysmal positional vertigo High-risk sexual behavior V69.2 Active Alina Castaneda MD PhD High-risk sexual behavior Erectile dysfunction 302.72 Active Alina Castaneda MD PhD Psychosexual dysfunction with inhibited sexual excitement Constipation 564.00 Active Alina Castaneda MD PhD Constipation, unspecified Skin lesion 709.9 Active Alina Castaneda MD PhD Unspecified disorder of skin and subcutaneous tissue Malaise and fatigue 780.79 Active Cherelle Speaks ELECTRONIC SYSTEMS TECHNICIAN Other malaise and fatigue Diarrhea 787.91 Active Cherelle Speaks ELECTRONIC SYSTEMS TECHNICIAN Diarrhea PHARYNGITIS 462 Active Cherelle Speaks ELECTRONIC SYSTEMS TECHNICIAN Acute pharyngitis Colitis 558.9 Active Mima Erazo ELECTRONIC SYSTEMS TECHNICIAN Other and unspecified noninfectious gastroenteritis and colitis WOUND, OPEN, NOSE ICD-873.20 Inactive Alina Castaneda MD PhD DIABETES, TYPE 2 ICD-250.00 Inactive Alina Castaneda MD PhD HYPERTENSION ICD-401.9 Inactive Alina Castaneda MD PhD URI ICD-465.9 Inactive Alina Castaneda MD PhD CHEST PAIN ICD-786.50 Inactive Alina Castaneda MD PhD FH STROKE ICD-V17.1 Inactive Marvel hCarles PLATE CORRECTOR FATIGUE ICD-780.79 Inactive Alina Castaneda MD PhD [...] MISC 4 a day INSULIN PEN NEEDLE 61043428587 Active Marvel MARROQUIN Active AMITIZA 24 MCG ORAL CAPS Take one capsule BID for constipation LUBIPROSTONE 76786281219 Active Mima Erazo APRN Active LEVEMIR FLEXTOUCH 100 UNIT/ML SC SOPN 75 units SQ each evening, for diabetes INSULIN DETEMIR 82892023628 Active CRYSTAL Rodrigues Active TRUEPLUS LANCETS 30G MISC 3 a day LANCETS 34883204812 Active Marvel MARROQUIN Active TOLTERODINE TARTRATE 2 MG TABS 1 pill twice daily, for bladder TOLTERODINE TARTRATE 45986472495 No Longer Active Vanessa Hickey MD Active AMITIZA 24 MCG ORAL CAPS Take one capsule BID for constipation. LUBIPROSTONE 09464935977 No Longer Active Vanessa Hickey MD Active LOMOTIL 2.5-0.025 MG ORAL TABS take 1-2 tabs PO after each stool, no more than 8 in 24 hours DIPHENOXYLATE-ATROPINE 21148872684 Active Grace Azam RMA Active FLUVOXAMINE MALEATE 100 MG ORAL TABS take one tab every AM et HS, and take 1/ 2 tab at noon FLUVOXAMINE MALEATE 10146455246 Active Gracekailee Nelsonb RMA Active METOPROLOL SUCCINATE 100 MG [id number] 1 by mouth daily for blood pressure METOPROLOL SUCCINATE 56732583656 No Longer Active Grace Azam RMA Active METFORMIN HCL ER 500 MG [id number] Take three tablets by mouth everyday METFORMIN HCL 86290638578 No Longer Active Grace Azam RMA Active LOVAZA 1 GM CAPS 4 daily (for triglycerides) OMEGA-3- ACID ETHYL ESTERS 32416926998 No Longer Active Grace Azam RMA Active TRAZODONE HCL 100 MG ORAL TABS 1 tab by mouth for sleep TRAZODONE HCL 03541936165 No Longer Active Gracekailee Nelsonb RMA Active NOVOFINE 32G X 6 MM MISC use one four times per day INSULIN PEN NEEDLE 60050894304 No Longer Active Grace Azam RMA Active BACTROBAN 2 % CREAM Apply to affected area BID for up to 10 days MUPIROCIN CALCIUM 38968677993 No Longer Active Grace Azam RMA Active ZOFRAN 4 MG TABS 1 po q4hr PRN [place] ONDANSETRON HCL 74303479678 Active Salina Han RMA Active KEFLEX 500 MG CAP 1 po BID x 7 days CEPHALEXIN 81241165010 No Longer Active Cherelle Avila APRN Active FLUVOXAMINE MALEATE 100 MG TABS Take one (1) tablet by mouth am, 1/2 at noon FLUVOXAMINE MALEATE 32726313324 No Longer Active Mima Erazo APRN Active CORICIDIN HBP CONGESTION/COUGH 10-200 MG ORAL CAPS Take as directed on box as needed for cold/flu symptoms DEXTROMETHORPHAN-GUAIFENESIN 67636566385 Active Cherelle Speaks ELECTRONIC SYSTEMS TECHNICIAN Active OMEGA-3 300 MG ORAL CAPS 4 caps by mouth daily OMEGA-3 FATTY ACIDS 34196229908 Active Cherelle Speaks ELECTRONIC SYSTEMS TECHNICIAN Active FLUVOXAMINE MALEATE 100 MG ORAL TABS Take 1/2 tab at noon FLUVOXAMINE MALEATE 23076936594 No Longer Active Cherelle Speaks ELECTRONIC SYSTEMS TECHNICIAN Active [facility] LUBRICANT EYE DROPS 0.4-0.3 % OPHTH SOLN POLYETHYL GLYCOL-PROPYL GLYCOL 19842901757 Active Mima Yoeloinaum ELECTRONIC SYSTEMS TECHNICIAN Active CLONAZEPAM 1 MG TABS 1/2 pill by mouth three times daily CLONAZEPAM 69867241155 Active Alina Castaneda MD PhD Active MIRALAX POWD 17g by mouth daily, for constipation POLYETHYLENE GLYCOL 3350 03789972762 Active Alina Castaneda MD PhD Active HYDROCODONE-ACETAMINOPHEN 5-325 MG TABS 2 tabs by mouth three times daily for pain HYDROCODONE-ACETAMINOPHEN 80148581627 Active Mima Erazo ELECTRONIC SYSTEMS TECHNICIAN Active HUMALOG KWIKPEN 100 UNIT/ML SC SOPN 20 units with breakfast, 10 units with lunch, 10 units with dinner, for diabetes INSULIN LISPRO (HUMAN ) 28738555867 Active Alina Castandea MD PhD Active LATUDA 120 MG ORAL TABS 1 pill by mouth nightly LURASIDONE HCL 25485274666 Active Alina Castaneda MD PhD Active COLACE 100 MG CAPS 1 pill by mouth twice daily, for constipation DOCUSATE SODIUM 47872181670 Active Alina Castaneda MD PhD Active TRUETEST TEST STRP check blood sugars 3x/day GLUCOSE BLOOD 90041565576 Active Marvel Mackenzieglari PLATE CORRECTOR Active ACCU-CHEK ROSA UZMA Use device to check blood sugars BLOOD GLUCOSE MONITORING SUPPL 66689900281 No Longer Active Maljohn Mackenzieglari PLATE CORRECTOR Active ACCU-CHEK ROSA INVITR STRP use strips with device to check blood sugars 3 times daily GLUCOSE BLOOD 38607746103 No Longer Active Marvel MENDOZAP Active VERAPAMIL HCL ER 180 MG ORAL CR-TABS 1 pill by mouth twice daily, for migraine prevention VERAPAMIL HCL 87340338584 Active Alina Castaneda MD PhD Active CYCLOBENZAPRINE HCL 10 MG TABS 1 tablet by mouth three times daily, scheduled CYCLOBENZAPRINE HCL 84690466790 No Longer Active Alina Castaneda MD PhD Active HUMALOG 100 UNIT/ML SOLN Take 20 units with breakfast, 10u with lunch and suppetr. INSULIN LISPRO (HUMAN) 40859127253 No Longer Active Alina Castaneda MD PhD Active TRUETEST TEST STRP check sugars 4x/day GLUCOSE BLOOD 29654092353 No Longer Active Alina Castaneda MD PhD Active MORPHINE SULFATE 30 MG TABS 1 pill by mouth twice daily, for pain MORPHINE SULFATE 78441193573 Active Mima Erazo ELECTRONIC SYSTEMS TECHNICIAN Active ACYCLOVIR 400 MG ORAL TABS 1 pill three times daily x 5 days, for cold sore outbreak ACYCLOVIR 47757378371 No Longer Active Alina Castaneda MD PhD Active PENICILLIN V POTASSIUM 500 MG TABS 1 pill by mouth three times daily PENICILLIN V POTASSIUM 29641041549 No Longer Active Alina Castaneda MD PhD Active UROXATRAL 10 MG [id number] Take 1 tablet by mouth daily ALFUZOSIN HCL 76714004392 No Longer Active Alina Castaneda MD PhD Active THIOTHIXENE 5 MG CAPS by mouth twice a day THIOTHIXENE 38611707736 No Longer Active Alian Castaneda MD PhD Active ZYPREXA 7.5 MG TABS 1 at HS OLANZAPINE 26411964655 No Longer Active Alina Castaneda MD PhD Active BD INSULIN SYRINGE 28G X 1/2" 1 ML MISC 1 four times per day INSULIN SYRINGE-NEEDLE U-100 05468193576 Active Marvel Charles PLATE CORRECTOR Active DETROL LA 4 MG [id number] Take 1 tablet by mouth daily TOLTERODINE TARTRATE 48723341071 No Longer Active Alina Castaneda MD PhD Active TERESE CONTOUR TEST STRP monitor blood sugars 3x/day GLUCOSE BLOOD 72153470434 No Longer Active Alina Castaneda MD PhD Active EQL TRUETEST TEST STRP Test blood sugar TID GLUCOSE BLOOD 57171958245 No Longer Active Alina Castaneda MD PhD Active FLUTICASONE PROPIONATE 50 MCG/ACT SUSP 2 sprays each nostril qDay x 30 days FLUTICASONE PROPIONATE 77771394519 No Longer Active Alina Castaneda MD PhD Active IBUPROFEN 200 MG TABS 1 Q 6 hr. PRN IBUPROFEN 26255165140 No Longer Active Alina Castaneda MD PhD Active NIACIN ER 500 MG CR-TABS 4 qHS (for triglycerides) NIACIN 12310857297 No Longer Active Alina Castaneda MD PhD Active ALFUZOSIN HCL ER 10 MG [id number]-WFX 1 tablet daily ALFUZOSIN HCL 18054048405 Active Vanessa Hickey MD Active SAPHRIS 5 MG SUBL by mouth twice a day ASENAPINE MALEATE 40714299538 No Longer Active Maliheh Ziglari PLATE CORRECTOR Active ACETAMINOPHEN 500 MG TABS 2 Q 6 hr. PRN ACETAMINOPHEN 93034587192 No Longer Active Maliheh Ziglari PLATE CORRECTOR Active ORPHENADRINE CITRATE ER 100 MG [id number] 1 every 12 hr. as needed ORPHENADRINE CITRATE 43111105131 No Longer Active Alina Castaneda MD PhD Active NIACIN CR 500 MG CR-TABS 2 qHS NIACIN 88533549564 No Longer Active Alina Castaneda MD PhD Active AMOXICILLIN 500 MG CAPS 2 po BID x 10 days AMOXICILLIN 12194279322 No Longer Active Alina Castaneda MD PhD Active HYDROCODONE-ACETAMINOPHEN 7.5-325 MG TABS 1 four times a day as needed for pain HYDROCODONE-ACETAMINOPHEN 64839896772 No Longer Active Alina Castaneda MD PhD Active DOXEPIN HCL 10 MG CAPS Take 1 tablet by mouth daily DOXEPIN HCL 44643708050 No Longer Active Salina Han A Active NAVANE 10 MG CAPS 1/2 tablet twice a day THIOTHIXENE No Longer Active Salina Han A Active CYCLOBENZAPRINE HCL 10 MG TABS 1/2 tablet by mouth every 8 hours as needed for muscle spasms CYCLOBENZAPRINE HCL 29515740773 No Longer Active Alina Castaneda MD PhD Active BACTROBAN 2 % CREAM apply to ear and nose twice daily MUPIROCIN CALCIUM 89126239031 No Longer Active Alina Castaneda MD PhD Active HYDROCODONE-ACETAMINOPHEN 5-325 MG TABS take one tablet by mouth every four hours as needed for pain HYDROCODONE-ACETAMINOPHEN 79459835540 No Longer Active Alina Castaneda MD PhD Active ZOLPIDEM TARTRATE 10 MG TABS take at bedtime ZOLPIDEM TARTRATE 12152338141 Active Alina Castaneda MD PhD Active ZYPREXA 5 MG TABS take one tablet by mouth every evening OLANZAPINE 91226613782 No Longer Active Alina Castaneda MD PhD Active ALBUTEROL SULFATE 0.083 % NEBU SOLN one vial per nebulizer TID and PRN cough/ soa ALBUTEROL SULFATE 14715162446 No Longer Active Alina Castaneda MD PhD Active GUAIFENESIN 600 MG [id number] 1 tablet by mouth twice daily if needed for cough GUAIFENESIN 94518707923 No Longer Active Marvel Charles PLATE CORRECTOR Active AZITHROMYCIN 500 MG SOLR 1 po q day AZITHROMYCIN 78068588375 No Longer Active Alina Castaneda MD PhD Active PROMETHAZINE-CODEINE 6.25-10 MG/5ML SYRP 1 tsp po q 6 hours prn cough PROMETHAZINE-CODEINE 04098363735 No Longer Active Alina Castaneda MD PhD Active CEFDINIR 300 MG CAPS by mouth twice a day CEFDINIR 41623802255 No Longer Active Alina Castaneda MD PhD Active METFORMIN HCL 500 MG [id number] Take 3 tablets by mouth everyday METFORMIN HCL 37096094048 No Longer Active Alina Castaneda MD PhD Active LEVEMIR 100 UNIT/ML SOLN 90 units SQ qHS INSULIN DETEMIR 60876202715 No Longer Active Marvel MARROQUIN Active TOPROL XL 100 MG [id number]-MTQ 1 @ HS METOPROLOL SUCCINATE 01886212206 No Longer Active Marvel MARROQUIN Active ALLOPURINOL 300 MG TABS Take one by mouth daily ALLOPURINOL 02406904853 Active Alina Castaneda MD PhD Active ZYPREXA 10 MG TABS Take one by mouth daily OLANZAPINE 98032031805 No Longer Active Alina Castaneda MD PhD Active NOVOLOG 100 UNIT/ML SOLN 40 units with every meal INSULIN ASPART 26333543910 No Longer Active Alina Castaneda MD PhD Active VERAPAMIL HCL CR 120 MG TAB CR 1 qPM VERAPAMIL HCL 78111126297 No Longer Active Salina Ervinamelia ROJAS Active ZYPREXA 15 MG TABS Take 1 tablet by mouth daily OLANZAPINE 16186260148 No Longer Active Marvel MARROQUIN Active LISINOPRIL 20 MG TABS 1 BID LISINOPRIL 20797367482 Active Alina Castaneda MD PhD Active ALBUTEROL SULFATE (2.5 MG/3ML) 0.083% NEBU 1 neb tid and prn cough ALBUTEROL SULFATE 30409695377 No Longer Active Alina Castaneda MD PhD Active TRAVATAN Z 0.004 % SOLN 1 gtt each eye daily TRAVOPROST 86448920488 Active CRYSTAL Suarez Active LANTUS 100 UNIT/ML SOLN 60 units sq q hs INSULIN GLARGINE 12309535546 No Longer Active CRYSTAL Suarez Active ALBUTEROL SULFATE (2.5 MG/3ML) 0.083% NEBU 1 neb tid and prn cough ALBUTEROL SULFATE (2.5 MG/3ML) 0.083% NEBU 323800 ALBUTEROL SULFATE Inactive ZYPREXA 15 MG TABS Take 1 tablet by mouth daily ZYPREXA 15 MG TABS 782312 OLANZAPINE Inactive VERAPAMIL HCL CR 120 MG TAB CR 1 qPM VERAPAMIL HCL CR 120 MG TAB CR VERAPAMIL HCL Inactive ZYPREXA 10 MG TABS Take one by mouth daily ZYPREXA 10 MG TABS 559926 OLANZAPINE Inactive TOPROL XL 100 MG [id number]-KFU 1 @ HS TOPROL XL 100 MG [id number]-ARW METOPROLOL SUCCINATE Inactive LEVEMIR 100 UNIT/ML SOLN 90 units SQ qHS LEVEMIR 100 UNIT/ML SOLN INSULIN DETEMIR Inactive PROMETHAZINE-CODEINE 6.25-10 MG/5ML SYRP 1 tsp po q 6 hours prn cough PROMETHAZINE-CODEINE 6.25-10 MG/5ML SYRP 790531 PROMETHAZINE- CODEINE Inactive GUAIFENESIN 600 MG MH26J-TAU 1 tablet by mouth twice daily if needed for cough GUAIFENESIN 600 MG [id number]-ZHA GUAIFENESIN Inactive ALBUTEROL SULFATE 0.083 % NEBU SOLN one vial per nebulizer TID and PRN cough/ soa ALBUTEROL SULFATE 0.083 % NEBU SOLN 179062 ALBUTEROL SULFATE Inactive ZYPREXA 5 MG TABS take one tablet by mouth every evening ZYPREXA 5 MG TABS 914732 OLANZAPINE Inactive HYDROCODONE-ACETAMINOPHEN 5-325 MG TABS take one tablet by mouth every four hours as needed for pain HYDROCODONE-ACETAMINOPHEN 5-325 MG TABS 248722 HYDROCODONE-ACETAMINOPHEN Inactive BACTROBAN 2 % CREAM apply to ear and nose twice daily BACTROBAN 2 % CREAM 351071 MUPIROCIN CALCIUM Inactive CYCLOBENZAPRINE HCL 10 MG TABS 1/2 tablet by mouth every 8 hours as needed for muscle spasms CYCLOBENZAPRINE HCL 10 MG TABS 903772 CYCLOBENZAPRINE HCL Inactive NAVANE 10 MG CAPS 1/2 tablet twice a day NAVANE 10 MG CAPS THIOTHIXENE Inactive DOXEPIN HCL 10 MG CAPS Take 1 tablet by mouth daily DOXEPIN HCL 10 MG CAPS 7150217 DOXEPIN HCL Inactive HYDROCODONE-ACETAMINOPHEN 7.5-325 MG TABS 1 four times a day as needed for pain HYDROCODONE-ACETAMINOPHEN 7.5-325 MG TABS 579093 HYDROCODONE-ACETAMINOPHEN Inactive NIACIN CR 500 MG CR-TABS 2 qHS NIACIN CR 500 MG CR- TABS NIACIN Inactive ORPHENADRINE CITRATE ER 100 MG [id number]-PCS 1 every 12 hr. as needed ORPHENADRINE CITRATE ER 100 MG [id number]-TYC ORPHENADRINE CITRATE Inactive ACETAMINOPHEN 500 MG TABS 2 Q 6 hr. PRN ACETAMINOPHEN 500 MG TABS 480177 ACETAMINOPHEN Inactive SAPHRIS 5 MG SUBL by mouth twice a day SAPHRIS 5 MG SUBL ASENAPINE MALEATE Inactive NIACIN ER 500 MG CR-TABS 4 qHS (for triglycerides) NIACIN ER 500 MG CR-TABS NIACIN Inactive IBUPROFEN 200 MG TABS 1 Q 6 hr. PRN IBUPROFEN 200 MG TABS 824804 IBUPROFEN Inactive FLUTICASONE PROPIONATE 50 MCG/ACT SUSP 2 sprays each nostril qDay x 30 days FLUTICASONE PROPIONATE 50 MCG/ACT SUSP 240669 FLUTICASONE PROPIONATE Inactive EQL TRUETEST TEST STRP Test blood sugar TID EQL TRUETEST TEST STRP GLUCOSE BLOOD Inactive TERESE CONTOUR TEST STRP monitor blood sugars 3x/day TERESE CONTOUR TEST STRP GLUCOSE BLOOD Inactive DETROL LA 4 MG CH42M-LXF Take 1 tablet by mouth daily DETROL LA 4 MG [id number]-HFA TOLTERODINE TARTRATE Inactive ZYPREXA 7.5 MG TABS 1 at HS ZYPREXA 7.5 MG TABS 687334 OLANZAPINE Inactive THIOTHIXENE 5 MG CAPS by mouth twice a day THIOTHIXENE 5 MG CAPS 255461 THIOTHIXENE Inactive UROXATRAL 10 MG EU26S-QVD Take 1 tablet by mouth daily UROXATRAL 10 MG UI26E-OTP ALFUZOSIN HCL Inactive ACYCLOVIR 400 MG ORAL TABS 1 pill three times daily x 5 days, for cold sore outbreak ACYCLOVIR 400 MG ORAL TABS 527371 ACYCLOVIR Inactive TRUETEST TEST STRP check sugars 4x/day TRUETEST TEST STRP GLUCOSE BLOOD Inactive HUMALOG 100 UNIT/ML SOLN Take 20 units with breakfast, 10u with lunch and suppetr. HUMALOG 100 UNIT/ML SOLN INSULIN LISPRO ( HUMAN) Inactive CYCLOBENZAPRINE HCL 10 MG TABS 1 tablet by mouth three times daily, scheduled CYCLOBENZAPRINE HCL 10 MG TABS 307265 CYCLOBENZAPRINE HCL Inactive ACCU-CHEK ROSA INVITR STRP use strips with device to check blood sugars 3 times daily ACCU-CHEK ROSA INVITR STRP GLUCOSE BLOOD Inactive ACCU-CHEK ROSA UZMA Use device to check blood sugars ACCU-CHEK ROSA UZMA BLOOD GLUCOSE MONITORING SUPPL Inactive FLUVOXAMINE MALEATE 100 MG ORAL TABS Take 1/2 tab at noon FLUVOXAMINE MALEATE 100 MG ORAL TABS 057991 FLUVOXAMINE MALEATE Inactive FLUVOXAMINE MALEATE 100 MG TABS Take one (1) tablet by mouth am, 1/2 at noon FLUVOXAMINE MALEATE 100 MG TABS 020507 FLUVOXAMINE MALEATE Inactive BACTROBAN 2 % CREAM Apply to affected area BID for up to 10 days BACTROBAN 2 % CREAM 777839 MUPIROCIN CALCIUM Inactive NOVOFINE 32G X 6 MM MISC use one four times per day NOVOFINE 32G X 6 MM MISC INSULIN PEN NEEDLE Inactive TRAZODONE HCL 100 MG ORAL TABS 1 tab by mouth for sleep TRAZODONE HCL 100 MG ORAL TABS 961406 TRAZODONE HCL Inactive LOVAZA 1 GM CAPS 4 daily (for triglycerides) LOVAZA 1 GM CAPS 168513 GGHCY-5-OTCI ETHYL ESTERS Inactive METFORMIN HCL ER 500 MG ZZ21M-MOG Take three tablets by mouth everyday METFORMIN HCL ER 500 MG II35O-XFX METFORMIN HCL Inactive METOPROLOL SUCCINATE 100 MG CP50M-WED 1 by mouth daily for blood pressure METOPROLOL SUCCINATE 100 MG YE19E-KGQ METOPROLOL SUCCINATE Inactive AMITIZA 24 MCG ORAL CAPS Take one capsule BID for constipation. AMITIZA 24 MCG ORAL CAPS LUBIPROSTONE Inactive TOLTERODINE TARTRATE 2 MG TABS 1 pill twice daily, for bladder TOLTERODINE TARTRATE 2 MG TABS 868105 TOLTERODINE TARTRATE Inactive CEFDINIR 300 MG CAPS by mouth twice a day CEFDINIR 300 MG CAPS 298626 CEFDINIR Inactive AZITHROMYCIN 500 MG SOLR 1 po q day AZITHROMYCIN 500 MG SOLR 43871310063 AZITHROMYCIN Inactive AMOXICILLIN 500 MG CAPS 2 po BID x 10 days AMOXICILLIN 500 MG CAPS 903728 AMOXICILLIN Inactive PENICILLIN V POTASSIUM 500 MG TABS 1 pill by mouth three times daily PENICILLIN V POTASSIUM 500 MG TABS 618988 PENICILLIN V POTASSIUM Inactive KEFLEX 500 MG CAP 1 po BID x 7 days KEFLEX 500 MG CAP 592999 CEPHALEXIN Inactive Immunizations Vaccine Administration Date Value [...] Fluvirin, Fluarix, Agriflu(>=18 yo)) Fluzone (>3 yrs.) [[id number]] Influenza, seasonal, injectable pneumococcal immunization administered Pneumovax [...] MICROALBUMIN - Chemistry sodium, serum 137 mmol/L 077-938 5142/05/19 potassium, serum 5.2 mmol/L 3.5-5.2 chloride, serum [...] Panel - Chemistry sodium, serum 137 mmol/L 992-726 9999/10/12 potassium, serum 4.8 mmol/L 3.5-5.2 chloride, serum 102 mmol/L 98-107 carbon dioxide, venous blood 27.6 mmol/L 21.0-32.0 blood glucose 168 mg/dL 65-110 calcium, serum 9.0 mg/dL 8.5-10.1 urea nitrogen, blood 15 mg/dL 7-18 creatinine, serum 1.04 mg/dL 0.55-1.30 sodium, serum 138 mmol/L 295-613 4968/11/11 potassium, serum 4.7 mmol/L 3.5-5.2 chloride, serum [...] % 11.6-14.8 platelet count 252 10^3/MM^3 10*3/mm3 345-258 3939/10/12 leukocyte count, blood 5.8 10^3/MM^3 10*3/mm3 4.6-10.2 [...] 240 10^3/MM^3 10*3/mm3 142-424 Lab Report: Chlamydia/GC APTIMA/78041, HIV-1/2 Agn/Dominga/11096, RPR (DX) W ... - Chemistry hepatitis B surface antigen NON-REACTIVE NON-REACTIVE Lab Report: Chlamydia/GC APTIMA/20636, HIV-1/2 Agn/Dominga/23010, RPR (DX) W ... - Lab chlamydia DNA probe NOT DETECTED NOT DETECTED Lab Report: Chlamydia/GC APTIMA/20344, HIV-1/2 Agn/Dominga/34633, RPR (DX) W ... - Microbiology Neisseria gonorrhoeae DNA probe NOT DETECTED NOT DETECTED Lab Report: Chlamydia/GC APTIMA/86895, HIV-1/2 Agn/Dominga/18060, RPR (DX) W ... - Serology rapid plasma reagin antibody titer NON-REACTIVE NON-REACTIVE Lab Report: HGBA1C - Chemistry hemoglobin A1C, blood, as % of total hemoglobin 6.1 % 4.3-6.0 hemoglobin A1C, blood, as % of total hemoglobin 6.3 % 4.3-6.0 Lab Report: Lipid Panel, HEPATIC PANEL, MICROALBUMIN, CBC - Chemistry cholesterol, serum 131 mg/dL 849-527 4916/06/03 triglyceride, serum, fasting 383 mg/dL 30-200 HDL [...] 4.7 mg/dL 2.6-7.2 cholesterol, serum 142 mg/dL 583-828 2516/06/26 triglyceride, serum, fasting 272 mg/dL 30-200 HDL [...] negative Encounters Code Encounter Date Provider Facility CPT-65639 Level 3 Est. Patient 14:39:00 PAINT MIXER MACHINE Vanessa Hickey MD [facility]-24741 Level 2 Est. Patient 18:43:[address] [facility] CPT-44064 Level 3 Est. Patient 16:22:09 CDT Cherelle Avila [facility] CPT-85315 Level 4 Est. Patient 17:55:[address] [facility] CPT-74633 Level 2 Est. Patient 17:13:21 CDT [facility] CPT-24632 Level 3 Est. Patient 14:46:15 CDT Vanessa Hickey MD [facility]-60665 Level 3 Est. Patient 09:34:56 CDT Alina Castaneda MD [facility]88766 Level 3 Est. Patient 21:40:[address] [facility] CPT-43368 Level 3 Est. Patient 09:26:40 CDT Marvel Charles [facility]-61299 Level 3 Est. Patient 12:36:43 CDT Vanessa Hickey MD [facility]23398 Level 3 Est. Patient 12:57:49 CDT Vanessa Hickey MD [facility]52265 Level 3 Est. Patient 00:28:25 CDT Alina Castaneda MD [facility]27721 Level 2 Est. Patient 12:52:14 CDT Alina Castaneda MD [facility]02290 Level 3 Est. Patient 11:51:18 PAINT MIXER MACHINE Alina Castaneda MD [facility]-72586 Level 3 Est. Patient 10:09:22 PAINT MIXER MACHINE Alina Castaneda MD [facility]12266 Level 3 Est. Patient 14:36:26 PAINT MIXER MACHINE Marvel Charles [facility]76981 Level 3 Est. Patient 13:34:47 PAINT MIXER MACHINE Alian Castaneda MD [facility]66342 Level 3 Est. Patient 19:52:08 PAINT MIXER MACHINE Alina Castaneda MD [facility]05994 Level 3 Est. Patient 10:01:51 PAINT MIXER MACHINE Marvel Charles [facility]-54724 Level 3 Est. Patient 21:54:06 CDT Vanessa Hickey MD [facility]-69071 Level 3 Est. Patient 08:54:46 CDT Alina Castaneda MD [facility]93098 Level 3 Est. Patient 09:32:11 CDT Marvel Charles [facility]03526 Level 3 Est. Patient 12:02:49 CDT Alina Castaneda MD [facility]70331 Level 3 Est. Patient 19:17:33 CDT Alina Castaneda MD [facility]95004 Level 3 Est. Patient 13:19:10 CDT Marvel Charles [facility]86138 Level 3 Est. Patient 08:20:05 CDT Alina Castaneda MD [place] [address] Level 3 Est. Patient 15:17:18 CDT Alina Castaneda MD [facility]98527 Level 3 Est. Patient 14:25:36 PAINT MIXER MACHINE Marvel Charles [facility] CPT-75730 Level 3 Est. Patient 10:09:15 PAINT MIXER MACHINE Marvel Charles [facility]-50219 Level 3 Est. Patient 21:28:43 CDT Alina Castaneda MD [facility]-56457 Level 3 Est. Patient 15:20:11 CDT [place] Charles [facility]-08126 Level 4 Est. Patient 19:08:12 CDT Alina Castaneda MD [facility]-44054 Level 3 Est. Patient 15:06:39 CDT [facility]96[facility] 4 Est[facility] Patient 17:48:15 CDT Alina Castaneda MD [facility]-23773 Level 3 Est. Patient 14:53:49 CDT Alina Castaneda MD [facility]-99483 Level 3 Est. Patient 09:35:16 CDT Alina Castaneda MD [facility]-49989 Level 3 Est. Patient 12:23:22 CDT Alina Castaneda MD [facility]-22172 Level 3 Est. Patient 16:19:15 CDT Alina Castaneda MD [facility]-89495 Level 3 Est. Patient 21:39:56 PAINT MIXER MACHINE Alina Castaneda MD [facility]-17759 Level 4 Est. Patient 14:12:56 PAINT MIXER MACHINE Alina Castaneda MD [facility]-07376 Level 2 Est. Patient 15:34:57 PAINT MIXER MACHINE Alina Castaneda MD [facility]-67541 Level 3 Est. Patient 12:17:04 PAINT MIXER MACHINE Alina Castaneda MD [facility]-43025 Level 3 Est. Patient 09:18:18 PAINT MIXER MACHINE [place] Araceli [facility]-00250 Level 2 Est. Patient 21:50:24 CDT Alina Castaneda MD [facility]84429 Level 3 Est. Patient 09:17:28 CDT Marvel Charles [facility]-17628 Level 4 Est. Patient 18:54:02 CDT Alina Castaneda [facility]29718 Level 3 Est. Patient 10:47:10 CDT Alina Cast[facility]eda [facility]68641 Level 3 Est. Patient 09:22:20 CDT [place] Araceli [facility]-32739 Level 3 Est. Patient 16:39:43 CDT [place] Araceli [facility]-32557 Level 3 Est. Patient 16:05:16 CDT Alina Castaneda MD [facility]50802 Level 3 Est. Patient 00:29:15 CDT Alina Castaneda MD [facility]22794 Level 3 Est. Patient 10:49:22 PAINT MIXER MACHINE [place] Araceli [id number] Level 3 Est. Patient 21:30:19 PAINT MIXER MACHINE Alina Castaneda MD [facility]96053 Level 4 Est. Patient 17:04:11 PAINT MIXER MACHINE Marvel Charles [facility]69001 Level 3 Est. Patient 15:34:11 PAINT MIXER MACHINE Zainnivia Araceli [id number] Level 2 Est. Patient 12:51:58 PAINT MIXER MACHINE Alina Castaneda MD PhD [facility] CPT-59965 Level 3 Est. Patient 13:20:01 PAINT MIXER MACHINE Alina Castaneda MD PhD [facility] CPT-29519 Level 3 Est. 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 CPT-64872 Bladder Scan 12:36:44 CDT CPT-87213 Bladder Scan 21:54:06 CDT CPT-G0008 Administration of Influenza Virus Vaccine 13:05:26 CDT CPT-48625 Fluzone Quadrivalent Intramuscular Suspension 0.5 ML 13: 05:26 CDT CPT-72297 Administration single or combination vaccine inc oral 11 :49:51 CDT CPT-23114 Pneumovax 11:49:51 CDT CPT-27318 Ribs unilateral 2V 12:37:22 PAINT MIXER MACHINE CPT-58182 Chest 2V Frontal and Lat 17:15:26 CDT CPT-33645 Abx/Therapy Injection 18:54:02 CDT CPT-J0696 Rocephin 1000 mg (Ceftriaxone) 16:00:32 CDT CPT-97925 Chest 2V Frontal and Lat 15:26:45 CDT CPT-70607 Chest 2V Frontal and Lat 10:23:27 CDT CPT-80368 Venipuncture Draw Fee 10:11:00 CDT CPT-73813 Administration single or combination vaccine inc oral 11 :56:38 CDT CPT-77927 Influenza split virus > age 3 11:56:38 CDT CPT-89572 Venipuncture Draw Fee 08:49:54 PAINT MIXER MACHINE CPT-08768 EKG Trac and Interp 17:54:19 PAINT MIXER MACHINE
--- OUTSIDE RECORDS SUMMARY | 2018-07-02 17:55 | XMS REPORT | Clinical Summary ---
Author Author Admin, TERELL Organization [facility] Address Unknown Phone Unavailable Allergies, Adverse Reactions, 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 Erazo DEPUTY CHIEF MAGISTRATE Benign paroxysmal positional vertigo Vertigo, benign paroxysmal position 386.11 Inactive Mima Erazo DEPUTY CHIEF MAGISTRATE Benign paroxysmal positional vertigo High-risk sexual behavior V69.2 Active Alina Castaneda MD PhD High-risk sexual behavior Erectile dysfunction 302.72 Active Alina Castaneda MD PhD Psychosexual dysfunction with inhibited sexual excitement Constipation 564.00 Active Alina Castaneda MD PhD Constipation, unspecified Skin lesion 709.9 Active Alina Castaneda MD PhD Unspecified disorder of skin and subcutaneous tissue Malaise and fatigue 780.79 Active Cherelle Speaks DEPUTY CHIEF MAGISTRATE Other malaise and fatigue Diarrhea 787.91 Active Cherelle Speaks DEPUTY CHIEF MAGISTRATE Diarrhea PHARYNGITIS 462 Active Cherelle Speaks DEPUTY CHIEF MAGISTRATE Acute pharyngitis Colitis 558.9 Active Mima Erazo DEPUTY CHIEF MAGISTRATE Other and unspecified noninfectious gastroenteritis and colitis WOUND, OPEN, NOSE ICD-873.20 Inactive Alina Castaneda MD PhD DIABETES, TYPE 2 ICD-250.00 Inactive Alina Castaneda MD PhD HYPERTENSION ICD-401.9 Inactive Alina Castaneda MD PhD URI ICD-465.9 Inactive Alina Castaneda MD PhD CHEST PAIN ICD-786.50 Inactive Alina Castaneda MD PhD FH STROKE ICD-V17.1 Inactive Marvel Charles 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 LUBIPROSTONE 64505031947 No Longer Active Vanessa Hickey MD Active LOMOTIL 2.5-0.025 MG ORAL TABS take 1-2 tabs PO after each stool, no more than 8 in 24 hours DIPHENOXYLATE-ATROPINE 83309352915 Active Grace ROJAS Active FLUVOXAMINE MALEATE 100 MG ORAL TABS take one tab every AM et HS, and take 1/ 2 tab at noon FLUVOXAMINE MALEATE 63774740332 Active Grace ROJAS Active METOPROLOL SUCCINATE 100 MG [id number] 1 by mouth daily for blood pressure METOPROLOL SUCCINATE 93607846246 No Longer Active Grace Nelsonb RMA Active METFORMIN HCL ER 500 MG BU66I-ISG Take three tablets by mouth everyday METFORMIN HCL 61644459911 No Longer Active Grace Azam RMA Active LOVAZA 1 GM CAPS 4 daily (for triglycerides) OMEGA-3- ACID ETHYL ESTERS 50693539342 No Longer Active Grace Azam RMA Active TRAZODONE HCL 100 MG ORAL TABS 1 tab by mouth for sleep TRAZODONE HCL 54295581932 No Longer Active Grace Azam RMA Active NOVOFINE 32G X 6 MM MISC use one four times per day INSULIN PEN NEEDLE 14556012004 No Longer Active Grace Azam RMA Active BACTROBAN 2 % CREAM Apply to affected area BID for up to 10 days MUPIROCIN CALCIUM 14328032791 No Longer Active Grace Azam RMA Active ZOFRAN 4 MG TABS 1 po q4hr PRN [place] ONDANSETRON HCL 69977093274 Active Salina Han RMA Active KEFLEX 500 MG CAP 1 po BID x 7 days CEPHALEXIN 04062794932 No Longer Active Cehrelle Speaks DEPUTY CHIEF MAGISTRATE Active FLUVOXAMINE MALEATE 100 MG TABS Take one (1) tablet by mouth am, 1/2 at noon FLUVOXAMINE MALEATE 36292622656 No Longer Active Mima Erazo DEPUTY CHIEF MAGISTRATE Active CORICIDIN HBP CONGESTION/COUGH 10-200 MG ORAL CAPS Take as directed on box as needed for cold/flu symptoms DEXTROMETHORPHAN-GUAIFENESIN 73621479791 Active Cherelle Speaks DEPUTY CHIEF MAGISTRATE Active OMEGA-3 300 MG ORAL CAPS 4 caps by mouth daily OMEGA-3 FATTY ACIDS 36126206644 Active Cherelle Speaks DEPUTY CHIEF MAGISTRATE Active FLUVOXAMINE MALEATE 100 MG ORAL TABS Take 1/2 tab at noon FLUVOXAMINE MALEATE 81490226670 No Longer Active Cherelle Avila DEPUTY CHIEF MAGISTRATE Active [facility] LUBRICANT EYE DROPS 0.4-0.3 % OPHTH SOLN POLYETHYL GLYCOL-PROPYL GLYCOL 03234132162 Active Mima Erazo DEPUTY CHIEF MAGISTRATE Active CLONAZEPAM 1 MG TABS 1/2 pill by mouth three times daily CLONAZEPAM 04111704967 Active Alina Castaneda MD PhD Active MIRALAX POWD 17g by mouth daily, for constipation POLYETHYLENE GLYCOL 3350 07295836319 Active Alina Castaneda MD PhD Active HYDROCODONE-ACETAMINOPHEN 5-325 MG TABS 2 tabs by mouth three times daily for pain HYDROCODONE-ACETAMINOPHEN 49682086275 Active Mima Erazo DEPUTY CHIEF MAGISTRATE Active HUMALOG KWIKPEN 100 UNIT/ML SC SOPN 20 units with breakfast, 10 units with lunch, 10 units with dinner, for diabetes INSULIN LISPRO (HUMAN ) 95602225776 Active Alina Castaneda MD PhD Active LATUDA 120 MG ORAL TABS 1 pill by mouth nightly LURASIDONE HCL 81515183969 Active Alina Castaneda MD PhD Active COLACE 100 MG CAPS 1 pill by mouth twice daily, for constipation DOCUSATE SODIUM 85049480189 Active Alina Castaneda MD PhD Active TRUETEST TEST STRP check blood sugars 3x/day GLUCOSE BLOOD 47879797715 Active Marvel Thurstonari BIOFUELS ENGINEERING MANAGER Active ACCU-CHEK ROSA UZMA Use device to check blood sugars BLOOD GLUCOSE MONITORING SUPPL 95968230897 No Longer Active Marvel Mackenzieglari LOPEZ Active ACCU-CHEK ROSA INVITR STRP use strips with device to check blood sugars 3 times daily GLUCOSE BLOOD 98359747803 No Longer Active Marvel MENDOZAP Active VERAPAMIL HCL ER 180 MG ORAL CR-TABS 1 pill by mouth twice daily, for migraine prevention VERAPAMIL HCL 97748778801 Active Alina Castaneda MD PhD Active CYCLOBENZAPRINE HCL 10 MG TABS 1 tablet by mouth three times daily, scheduled CYCLOBENZAPRINE HCL 42448581789 No Longer Active Alina Castaneda MD PhD Active HUMALOG 100 UNIT/ML SOLN Take 20 units with breakfast, 10u with lunch and suppetr. INSULIN LISPRO (HUMAN) 30587605679 No Longer Active Alina Castaneda MD PhD Active TRUETEST TEST STRP check sugars 4x/day GLUCOSE BLOOD 26335142168 No Longer Active Alina Castaneda MD PhD Active MORPHINE SULFATE 30 MG TABS 1 pill by mouth twice daily, for pain MORPHINE SULFATE 17058956193 Active Mima Erazo DEPUTY CHIEF MAGISTRATE Active ACYCLOVIR 400 MG ORAL TABS 1 pill three times daily x 5 days, for cold sore outbreak ACYCLOVIR 12626959835 No Longer Active Alina Castaneda MD PhD Active PENICILLIN V POTASSIUM 500 MG TABS 1 pill by mouth three times daily PENICILLIN V POTASSIUM 68610197043 No Longer Active Alina Castaneda MD PhD Active UROXATRAL 10 MG [id number] Take 1 tablet by mouth daily ALFUZOSIN HCL 61152757685 No Longer Active Ailna Castaneda MD PhD Active THIOTHIXENE 5 MG CAPS by mouth twice a day THIOTHIXENE 61214711114 No Longer Active Alina Castaneda MD PhD Active ZYPREXA 7.5 MG TABS 1 at HS OLANZAPINE 08627874041 No Longer Active Alina Castaneda MD PhD Active BD INSULIN SYRINGE 28G X 1/2" 1 ML MISC 1 four times per day INSULIN SYRINGE-NEEDLE U-100 36603252188 Active [facility] Gurdeepglestela [facility] Active DETROL LA 4 MG [id number]-VMW Take 1 tablet by mouth daily TOLTERODINE TARTRATE 16654703631 No Longer Active Alina Castaneda MD PhD Active TERESE CONTOUR TEST STRP monitor blood sugars 3x/day GLUCOSE BLOOD 75290707795 No Longer Active Alina Castaneda MD PhD Active EQL TRUETEST TEST STRP Test blood sugar TID GLUCOSE BLOOD 59302957948 No Longer Active Alina Castaneda MD PhD Active FLUTICASONE PROPIONATE 50 MCG/ACT SUSP 2 sprays each nostril qDay x 30 days FLUTICASONE PROPIONATE 73976021981 No Longer Active Alina Castaneda MD PhD Active IBUPROFEN 200 MG TABS 1 Q 6 hr. PRN IBUPROFEN 78982454749 No Longer Active Alina Castaneda MD PhD Active NIACIN ER 500 MG CR-TABS 4 qHS (for triglycerides) NIACIN 65711451096 No Longer Active Alina Castaneda MD PhD Active ALFUZOSIN HCL ER 10 MG [id number]-FBL 1 tablet daily ALFUZOSIN HCL 46589873280 Active Vanessa Hickey MD Active SAPHRIS 5 MG SUBL by mouth twice a day ASENAPINE MALEATE 28052655330 No Longer Active Maliheh Ziglari BIOFUELS ENGINEERING MANAGER Active ACETAMINOPHEN 500 MG TABS 2 Q 6 hr. PRN ACETAMINOPHEN 61130902162 No Longer Active Maliheh Ziglari BIOFUELS ENGINEERING MANAGER Active ORPHENADRINE CITRATE ER 100 MG [id number]-UWJ 1 every 12 hr. as needed ORPHENADRINE CITRATE 86606810190 No Longer Active Alina Castaneda MD PhD Active NIACIN CR 500 MG CR-TABS 2 qHS NIACIN 23706366511 No Longer Active Alina Castaneda MD PhD Active AMOXICILLIN 500 MG CAPS 2 po BID x 10 days AMOXICILLIN 45893383838 No Longer Active Alina Castaneda MD PhD Active HYDROCODONE-ACETAMINOPHEN 7.5-325 MG TABS 1 four times a day as needed for pain HYDROCODONE-ACETAMINOPHEN 59703534188 No Longer Active Alina Castaneda MD PhD Active DOXEPIN HCL 10 MG CAPS Take 1 tablet by mouth daily DOXEPIN HCL 31811392779 No Longer Active Salina ROJAS Active NAVANE 10 MG CAPS 1/2 tablet twice a day THIOTHIXENE No Longer Active Salina ROBBINSA Active CYCLOBENZAPRINE HCL 10 MG TABS 1/2 tablet by mouth every 8 hours as needed for muscle spasms CYCLOBENZAPRINE HCL 03830899086 No Longer Active Alina Castaneda MD PhD Active BACTROBAN 2 % CREAM apply to ear and nose twice daily MUPIROCIN CALCIUM 62227447757 No Longer Active Alina Castaneda MD PhD Active HYDROCODONE-ACETAMINOPHEN 5-325 MG TABS take one tablet by mouth every four hours as needed for pain HYDROCODONE-ACETAMINOPHEN 82517400349 No Longer Active Alina Castaneda MD PhD Active ZOLPIDEM TARTRATE 10 MG TABS take at bedtime ZOLPIDEM TARTRATE 27220873413 Active Alina Casatneda MD PhD Active ZYPREXA 5 MG TABS take one tablet by mouth every evening OLANZAPINE 50923292675 No Longer Active Alina Castaneda MD PhD Active ALBUTEROL SULFATE 0.083 % NEBU SOLN one vial per nebulizer TID and PRN cough/ soa ALBUTEROL SULFATE 50956633927 No Longer Active Alina Castaneda MD PhD Active GUAIFENESIN 600 MG [id number]-JCK 1 tablet by mouth twice daily if needed for cough GUAIFENESIN 72976667538 No Longer Active Marvel MARROQUIN Active AZITHROMYCIN 500 MG SOLR 1 po q day AZITHROMYCIN 51886217166 No Longer Active Alina Castaneda MD PhD Active PROMETHAZINE-CODEINE 6.25-10 MG/5ML SYRP 1 tsp po q 6 hours prn cough PROMETHAZINE-CODEINE 53532578258 No Longer Active Alina Castaneda MD PhD Active CEFDINIR 300 MG CAPS by mouth twice a day CEFDINIR 42202623657 No Longer Active Alina Castaneda MD PhD Active METFORMIN HCL 500 MG LJ00M-SEA Take 3 tablets by mouth everyday METFORMIN HCL 15323790955 No Longer Active Alina Castaneda MD PhD Active LEVEMIR 100 UNIT/ML SOLN 90 units SQ qHS INSULIN DETEMIR 98307789320 No Longer Active Marvel MARROQUIN Active TOPROL XL 100 MG OY74Y-WAX 1 @ HS METOPROLOL SUCCINATE 63010667193 No Longer Active Marvel MARROQUIN Active ALLOPURINOL 300 MG TABS Take one by mouth daily ALLOPURINOL 96716687149 Active Alina Castaneda MD PhD Active ZYPREXA 10 MG TABS Take one by mouth daily OLANZAPINE 83179069533 No Longer Active Alina Castaneda MD PhD Active NOVOLOG 100 UNIT/ML SOLN 40 units with every meal INSULIN ASPART 41583832701 No Longer Active Alina Castaneda MD PhD Active VERAPAMIL HCL CR 120 MG TAB CR 1 qPM VERAPAMIL HCL 60460435722 No Longer Active Salina ROJAS Active ZYPREXA 15 MG TABS Take 1 tablet by mouth daily OLANZAPINE 51539021393 No Longer Active Marvel MARROQUIN Active LISINOPRIL 20 MG TABS 1 BID LISINOPRIL 21634735167 Active Alina Castaneda MD PhD Active ALBUTEROL SULFATE (2.5 MG/3ML) 0.083% NEBU 1 neb tid and prn cough ALBUTEROL SULFATE 80054330723 No Longer Active Alina Castaneda MD PhD Active TRAVATAN Z 0.004 % SOLN 1 gtt each eye daily TRAVOPROST 29153681083 Active CRYSTAL Suarez Active LANTUS 100 UNIT/ML SOLN 60 units sq q hs INSULIN GLARGINE 86883738814 No Longer Active CRYSTAL Suarez Active ALBUTEROL SULFATE (2.5 MG/3ML) 0.083% NEBU 1 neb tid and prn cough ALBUTEROL SULFATE (2.5 MG/3ML) 0.083% NEBU 148027 ALBUTEROL SULFATE Inactive ZYPREXA 15 MG TABS Take 1 tablet by mouth daily ZYPREXA 15 MG TABS 585173 OLANZAPINE Inactive VERAPAMIL HCL CR 120 MG TAB CR 1 qPM VERAPAMIL HCL CR 120 MG TAB CR VERAPAMIL HCL Inactive ZYPREXA 10 MG TABS Take one by mouth daily ZYPREXA 10 MG TABS 371511 OLANZAPINE Inactive TOPROL XL 100 MG [id number] 1 @ HS TOPROL XL 100 MG JU17B-LHG METOPROLOL SUCCINATE Inactive LEVEMIR 100 UNIT/ML SOLN 90 units SQ qHS LEVEMIR 100 UNIT/ML SOLN INSULIN DETEMIR Inactive PROMETHAZINE-CODEINE 6.25-10 MG/5ML SYRP 1 tsp po q 6 hours prn cough PROMETHAZINE-CODEINE 6.25-10 MG/5ML SYRP 316278 PROMETHAZINE- CODEINE Inactive GUAIFENESIN 600 MG NH12R-ARK 1 tablet by mouth twice daily if needed for cough GUAIFENESIN 600 MG [id number]-KZQ GUAIFENESIN Inactive ALBUTEROL SULFATE 0.083 % NEBU SOLN one vial per nebulizer TID and PRN cough/ soa ALBUTEROL SULFATE 0.083 % NEBU SOLN 223970 ALBUTEROL SULFATE Inactive ZYPREXA 5 MG TABS take one tablet by mouth every evening ZYPREXA 5 MG TABS 094065 OLANZAPINE Inactive HYDROCODONE-ACETAMINOPHEN 5-325 MG TABS take one tablet by mouth every four hours as needed for pain HYDROCODONE-ACETAMINOPHEN 5-325 MG TABS 272023 HYDROCODONE-ACETAMINOPHEN Inactive BACTROBAN 2 % CREAM apply to ear and nose twice daily BACTROBAN 2 % CREAM 752754 MUPIROCIN CALCIUM Inactive CYCLOBENZAPRINE HCL 10 MG TABS 1/2 tablet by mouth every 8 hours as needed for muscle spasms CYCLOBENZAPRINE HCL 10 MG TABS 201031 CYCLOBENZAPRINE HCL Inactive NAVANE 10 MG CAPS 1/2 tablet twice a day NAVANE 10 MG CAPS THIOTHIXENE Inactive DOXEPIN HCL 10 MG CAPS Take 1 tablet by mouth daily DOXEPIN HCL 10 MG CAPS 6618903 DOXEPIN HCL Inactive HYDROCODONE-ACETAMINOPHEN 7.5-325 MG TABS 1 four times a day as needed for pain HYDROCODONE-ACETAMINOPHEN 7.5-325 MG TABS 637719 HYDROCODONE-ACETAMINOPHEN Inactive NIACIN CR 500 MG CR-TABS 2 qHS NIACIN CR 500 MG CR- TABS NIACIN Inactive ORPHENADRINE CITRATE ER 100 MG [id number]-JHE 1 every 12 hr. as needed ORPHENADRINE CITRATE ER 100 MG WS60A-OEY ORPHENADRINE CITRATE Inactive ACETAMINOPHEN 500 MG TABS 2 Q 6 hr. PRN ACETAMINOPHEN 500 MG TABS 300701 ACETAMINOPHEN Inactive SAPHRIS 5 MG SUBL by mouth twice a day SAPHRIS 5 MG SUBL ASENAPINE MALEATE Inactive NIACIN ER 500 MG CR-TABS 4 qHS (for triglycerides) NIACIN ER 500 MG CR-TABS NIACIN Inactive IBUPROFEN 200 MG TABS 1 Q 6 hr. PRN IBUPROFEN 200 MG TABS 229878 IBUPROFEN Inactive FLUTICASONE PROPIONATE 50 MCG/ACT SUSP 2 sprays each nostril qDay x 30 days FLUTICASONE PROPIONATE 50 MCG/ACT SUSP 978815 FLUTICASONE PROPIONATE Inactive EQL TRUETEST TEST STRP Test blood sugar TID EQL TRUETEST TEST STRP GLUCOSE BLOOD Inactive TERESE CONTOUR TEST STRP monitor blood sugars 3x/day TERESE CONTOUR TEST STRP GLUCOSE BLOOD Inactive DETROL LA 4 MG TV94M-BPX Take 1 tablet by mouth daily DETROL LA 4 MG [id number]-XTB TOLTERODINE TARTRATE Inactive ZYPREXA 7.5 MG TABS 1 at HS ZYPREXA 7.5 MG TABS 199485 OLANZAPINE Inactive THIOTHIXENE 5 MG CAPS by mouth twice a day THIOTHIXENE 5 MG CAPS 472602 THIOTHIXENE Inactive UROXATRAL 10 MG RM68O-AFV Take 1 tablet by mouth daily UROXATRAL 10 MG DR20R-YXC ALFUZOSIN HCL Inactive ACYCLOVIR 400 MG ORAL TABS 1 pill three times daily x 5 days, for cold sore outbreak ACYCLOVIR 400 MG ORAL TABS 666700 ACYCLOVIR Inactive TRUETEST TEST STRP check sugars 4x/day TRUETEST TEST STRP GLUCOSE BLOOD Inactive HUMALOG 100 UNIT/ML SOLN Take 20 units with breakfast, 10u with lunch and suppetr. HUMALOG 100 UNIT/ML SOLN INSULIN LISPRO ( HUMAN) Inactive CYCLOBENZAPRINE HCL 10 MG TABS 1 tablet by mouth three times daily, scheduled CYCLOBENZAPRINE HCL 10 MG TABS 053655 CYCLOBENZAPRINE HCL Inactive ACCU-CHEK ROSA INVITR STRP use strips with device to check blood sugars 3 times daily ACCU-CHEK ROSA INVITR STRP GLUCOSE BLOOD Inactive ACCU-CHEK ROSA UZMA Use device to check blood sugars ACCU-CHEK ROSA UZMA BLOOD GLUCOSE MONITORING SUPPL Inactive FLUVOXAMINE MALEATE 100 MG ORAL TABS Take 1/2 tab at noon FLUVOXAMINE MALEATE 100 MG ORAL TABS 048538 FLUVOXAMINE MALEATE Inactive FLUVOXAMINE MALEATE 100 MG TABS Take one (1) tablet by mouth am, 1/2 at noon FLUVOXAMINE MALEATE 100 MG TABS 114627 FLUVOXAMINE MALEATE Inactive BACTROBAN 2 % CREAM Apply to affected area BID for up to 10 days BACTROBAN 2 % CREAM 541396 MUPIROCIN CALCIUM Inactive NOVOFINE 32G X 6 MM MISC use one four times per day NOVOFINE 32G X 6 MM MISC INSULIN PEN NEEDLE Inactive TRAZODONE HCL 100 MG ORAL TABS 1 tab by mouth for sleep TRAZODONE HCL 100 MG ORAL TABS 670336 TRAZODONE HCL Inactive LOVAZA 1 GM CAPS 4 daily (for triglycerides) LOVAZA 1 GM CAPS 074617 YSKTE-8-FTWA ETHYL ESTERS Inactive METFORMIN HCL ER 500 MG OE61Y-SSY Take three tablets by mouth everyday METFORMIN HCL ER 500 MG RP30R-BYL METFORMIN HCL Inactive METOPROLOL SUCCINATE 100 MG GB02K-APM 1 by mouth daily for blood pressure METOPROLOL SUCCINATE 100 MG DM06Z-EJS METOPROLOL SUCCINATE Inactive AMITIZA 24 MCG ORAL CAPS Take one capsule BID for constipation. AMITIZA 24 MCG ORAL CAPS LUBIPROSTONE Inactive TOLTERODINE TARTRATE 2 MG TABS 1 pill twice daily, for bladder TOLTERODINE TARTRATE 2 MG TABS 204681 TOLTERODINE TARTRATE Inactive CEFDINIR 300 MG CAPS by mouth twice a day CEFDINIR 300 MG CAPS 898265 CEFDINIR Inactive AZITHROMYCIN 500 MG SOLR 1 po q day AZITHROMYCIN 500 MG SOLR 48746911693 AZITHROMYCIN Inactive AMOXICILLIN 500 MG CAPS 2 po BID x 10 days AMOXICILLIN 500 MG CAPS 951798 AMOXICILLIN Inactive PENICILLIN V POTASSIUM 500 MG TABS 1 pill by mouth three times daily PENICILLIN V POTASSIUM 500 MG TABS 249151 PENICILLIN V POTASSIUM Inactive KEFLEX 500 MG CAP 1 po BID x 7 days KEFLEX 500 MG CAP 077642 CEPHALEXIN Inactive Immunizations Vaccine Administration Date Value [...] Fluvirin, Fluarix, Agriflu(>=18 yo)) Fluzone (>3 yrs.) [[id number]] Influenza, seasonal, injectable pneumococcal immunization administered Pneumovax [...] MICROALBUMIN - Chemistry sodium, serum 137 mmol/L 699-632 9176/05/19 potassium, serum 5.2 mmol/L 3.5-5.2 chloride, serum [...] Panel - Chemistry sodium, serum 137 mmol/L 867-599 8189/10/12 potassium, serum 4.8 mmol/L 3.5-5.2 chloride, serum 102 mmol/L 98-107 carbon dioxide, venous blood 27.6 mmol/L 21.0-32.0 blood glucose 168 mg/dL 65-110 calcium, serum 9.0 mg/dL 8.5-10.1 urea nitrogen, blood 15 mg/dL 7-18 creatinine, serum 1.04 mg/dL 0.55-1.30 sodium, serum 138 mmol/L 853-360 5022/11/11 potassium, serum 4.7 mmol/L 3.5-5.2 chloride, serum [...] % 11.6-14.8 platelet count 252 10^3/MM^3 10*3/mm3 191-281 5060/10/12 leukocyte count, blood 5.8 10^3/MM^3 10*3/mm3 4.6-10.2 [...] 240 10^3/MM^3 10*3/mm3 142-424 Lab Report: Chlamydia/GC APTIMA/11727, HIV-1/2 Agn/Dominga/96794, RPR (DX) W ... - Chemistry hepatitis B surface antigen NON-REACTIVE NON-REACTIVE Lab Report: Chlamydia/GC APTIMA/37196, HIV-1/2 Agn/Dominga/96953, RPR (DX) W ... - Lab chlamydia DNA probe NOT DETECTED NOT DETECTED Lab Report: Chlamydia/GC APTIMA/74367, HIV-1/2 Agn/Dominga/95793, RPR (DX) W ... - Microbiology Neisseria gonorrhoeae DNA probe NOT DETECTED NOT DETECTED Lab Report: Chlamydia/GC APTIMA/50240, HIV-1/2 Agn/Dominga/46413, RPR (DX) W ... - Serology rapid plasma reagin antibody titer NON-REACTIVE NON-REACTIVE Lab Report: HGBA1C - Chemistry hemoglobin A1C, blood, as % of total hemoglobin 6.1 % 4.3-6.0 hemoglobin A1C, blood, as % of total hemoglobin 6.3 % 4.3-6.0 Lab Report: Lipid Panel, HEPATIC PANEL, MICROALBUMIN, CBC - Chemistry cholesterol, serum 131 mg/dL 182-331 1585/06/03 triglyceride, serum, fasting 383 mg/dL 30-200 HDL [...] 4.7 mg/dL 2.6-7.2 cholesterol, serum 142 mg/dL 683-364 3591/06/26 triglyceride, serum, fasting 272 mg/dL 30-200 HDL [...] negative Encounters Code Encounter Date Provider Facility CPT-27782 Level 3 Est. Patient 14:39:00 MACHINIST CLASS B Vanessa Hickey MD [facility] CPT-57711 Level 2 Est. Patient 18:43:34 CDT Mima Erazo [facility] CPT-40580 Level 3 Est. Patient 16:22:09 CDT Cherelle Avila [facility][note 3] CPT-20640 Level 4 Est. Patient 17:55:14 CDT Mima Erazo [facility] CPT-01591 Level 2 Est. Patient 17:13:21 CDT Alina Castaneda MD PhD [facility] CPT-94160 Level 3 Est. Patient 14:46:15 CDT Vanessa Hickey MD [facility] CPT-95052 Level 3 Est. Patient 09:34:56 CDT Alina Castaneda MD [facility]-90521 Level 3 Est. Patient 21:40:19 CDT Mima Erazo [facility]-97355 Level 3 Est. Patient 09:26:40 CDT Marvel Charles [facility]-76251 Level 3 Est. Patient 12:36:43 CDT Vanessa Hickey MD [facility]-08081 Level 3 Est. Patient 12:57:49 CDT Vanessa Hickey MD [facility]-10446 Level 3 Est. Patient 00:28:25 CDT Alian Castaneda MD [facility]36166 Level 2 Est. Patient 12:52:14 CDT Alina Castaneda MD [facility]-03988 Level 3 Est. Patient 11:51:18 MACHINIST CLASS B Alina Castaneda MD [facility] CPT-49084 Level 3 Est. Patient 10:09:22 MACHINIST CLASS B Alina Castaneda MD [facility]-64039 Level 3 Est. Patient 14:36:26 MACHINIST CLASS B Marvel Charles [facility] CPT-83684 Level 3 Est. Patient 13:34:47 MACHINIST CLASS B Alina Castaneda MD [facility]-85630 Level 3 Est. Patient 19:52:08 MACHINIST CLASS B Alina Castaneda MD [facility] CPT-04686 Level 3 Est. Patient 10:01:51 MACHINIST CLASS B Marvel Charles [facility]-96348 Level 3 Est. Patient 21:54:06 CDT Vanessa Hickey MD [facility]-39382 Level 3 Est. Patient 08:54:46 CDT Alina Castaneda MD [facility]-22214 Level 3 Est. Patient 09:32:11 CDT Marvel Charles [facility]-96808 Level 3 Est. Patient 12:02:49 CDT Alina Castaneda MD [facility]-26483 Level 3 Est. Patient 19:17:33 CDT Alina Castaneda MD [facility]-82125 Level 3 Est. Patient 13:19:10 CDT Marvel Gurdeepajayestela [facility]-34592 Level 3 Est. Patient 08:20:05 CDT Alina Castaneda MD [facility]-01948 Level 3 Est. Patient 15:17:18 CDT Alina Castaneda MD [facility]-19989 Level 3 Est. Patient 14:25:36 MACHINIST CLASS B Marvel Charles [facility]-58896 Level 3 Est. Patient 10:09:15 MACHINIST CLASS B [facility]95 Level 3 Est. Patient 21:28:43 CDT Alina Castaneda MD [facility]-12251 Level 3 Est. Patient 15:20:11 CDT Marvel Araceli [facility]-42598 Level 4 Est. Patient 19:08:12 CDT Alina Castaneda MD [facility]-87535 Level 3 Est. Patient 15:06:39 CDT Brookslashondanivia Araceli [facility]-75989 Level 4 Est. Patient 17:48:15 CDT Alina Castaneda MD [facility]-24406 Level 3 Est. Patient 14:53:49 CDT Alina Castaneda MD [facility]-21256 Level 3 Est. Patient 09:35:16 CDT Alina Castaneda MD [facility]-90451 Level 3 Est. Patient 12:23:22 CDT Alina Castaneda MD [facility]46354 Level 3 Est. Patient 16:19:15 CDT Alina Castaneda MD [facility]-00061 Level 3 Est. Patient 21:39:56 MACHINIST CLASS B Alina Castaneda MD [facility]-12656 Level 4 Est. Patient 14:12:56 MACHINIST CLASS B Alina Castaneda MD [facility]42595 Level 2 Est. Patient 15:34:57 MACHINIST CLASS B Alina Castaneda MD [facility]-36706 Level 3 Est. Patient 12:17:04 MACHINIST CLASS B Alina Castaneda MD [facility]-84272 Level 3 Est. Patient 09:18:18 MACHINIST CLASS B Marvel Charles [facility]-09261 Level 2 Est. Patient 21:50:24 CDT Alina Castaneda MD [facility]-27854 Level 3 Est. Patient 09:17:28 CDT Marvel Charles [facility]-33433 Level 4 Est. Patient 18:54:02 CDT Alina Castaneda MD [facility]-08569 Level 3 Est. Patient 10:47:10 CDT Alina Castaneda MD [facility]88998 Level 3 Est. Patient 09:22:20 CDT Marvel Charles [facility]-60817 Level 3 Est. Patient 16:39:43 CDT Marvel Charles [facility] CPT-72667 Level 3 Est. Patient 16:05:16 CDT Alina Castaneda MD [facility] CPT-08407 Level 3 Est. Patient 00:29:15 CDT Alina Castaneda MD [facility] CPT-52724 Level 3 Est. Patient 10:49:22 MACHINIST CLASS B Marvel Thurstonestela Formerly named [facility] CPT-71924 Level 3 Est. Patient 21:30:19 MACHINIST CLASS B Alina Castaneda MD [facility] CPT-21166 Level 4 Est. Patient 17:04:11 MACHINIST CLASS B Marvel Thurstonestela Formerly named [facility] CPT-72565 Level 3 Est. Patient 15:34:11 [facility] Level 2 Est. Patient 12:51:58 MACHINIST CLASS B Alina Castaneda MD [facility] CPT-85507 Level 3 Est. Patient 13:20:01 MACHINIST CLASS B Alina Castaneda MD [facility] CPT-80305 Level 3 Est. Patient 09:23:35 CDT Alina Castaneda MD [facility] Procedures Code Procedure Name Date Entry Date Standard Description CPT-34541 Bladder Scan 14:39:01 MACHINIST CLASS B CPT-TCMM Transitional Care Mgmt-Moderate 10:30:19 MACHINIST CLASS B CPT-64777 Bladder Scan 12:36:44 CDT CPT-36398 Bladder Scan 21:54:06 CDT CPT-G0008 Administration of Influenza Virus Vaccine 13:05:26 CDT CPT-52736 Fluzone Quadrivalent Intramuscular Suspension 0.5 ML 13: 05:26 CDT CPT-71647 Administration single or combination vaccine inc oral 11 :49:51 CDT CPT-76564 Pneumovax 11:49:51 CDT CPT-01100 Ribs unilateral 2V 12:37:22 MACHINIST CLASS B CPT-89870 Chest 2V Frontal and Lat 17:15:26 CDT CPT-37455 Abx/Therapy Injection 18:54:02 CDT CPT-J0696 Rocephin 1000 mg (Ceftriaxone) 16:00:32 CDT CPT-64629 Chest 2V Frontal and Lat 15:26:45 CDT CPT-85514 Chest 2V Frontal and Lat 10:23:27 CDT CPT-78000 Venipuncture Draw Fee 10:11:00 CDT CPT-31599 Administration single or combination vaccine inc oral 11 :56:38 CDT CPT-36708 Influenza split virus > age 3 11:56:38 CDT CPT-86092 Venipuncture Draw Fee 08:49:54 MACHINIST CLASS B CPT-34950 EKG Trac and Interp 17:54:19 MACHINIST CLASS B
--- OUTSIDE RECORDS SUMMARY | 2018-07-02 17:57 | XMS REPORT | Clinical Summary ---
Author Author Admin, TERELL Organization [facility] Address Unknown Phone Unavailable Allergies, Adverse Reactions, 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 Erazo GUIDE CHANGER Benign paroxysmal positional vertigo Vertigo, benign paroxysmal position 386.11 Inactive Mima Erazo GUIDE CHANGER Benign paroxysmal positional vertigo High-risk sexual behavior V69.2 Active Alina Castaneda MD PhD High-risk sexual behavior Erectile dysfunction 302.72 Active Alina Castaneda MD PhD Psychosexual dysfunction with inhibited sexual excitement Constipation 564.00 Active Alina Castaneda MD PhD Constipation, unspecified Skin lesion 709.9 Active Alina Castaneda MD PhD Unspecified disorder of skin and subcutaneous tissue Malaise and fatigue 780.79 Active Cherelle Speaks GUIDE CHANGER Other malaise and fatigue Diarrhea 787.91 Active Cherelle Speaks GUIDE CHANGER Diarrhea PHARYNGITIS 462 Active Cherelle Speaks GUIDE CHANGER Acute pharyngitis Colitis 558.9 Active Mima Erazo GUIDE CHANGER Other and unspecified noninfectious gastroenteritis and colitis WOUND, OPEN, NOSE ICD-873.20 Inactive Alina Castaneda MD PhD DIABETES, TYPE 2 ICD-250.00 Inactive Alina Castaneda MD PhD HYPERTENSION ICD-401.9 Inactive Alina Castaneda MD PhD URI ICD-465.9 Inactive Alina Castaneda MD PhD CHEST PAIN ICD-786.50 Inactive Alina Castaneda MD PhD FH STROKE ICD-V17.1 Inactive Marvel Charles WEAVING LOOM OPERATOR FATIGUE ICD-780.79 Inactive Alina Castaneda MD [...] more than 8 in 24 hours DIPHENOXYLATE-ATROPINE 78945480088 Active Grace Azam RMA Active FLUVOXAMINE MALEATE 100 MG ORAL TABS take one tab every AM et HS, and take 1/ 2 tab at noon FLUVOXAMINE MALEATE 81497264782 Active Grace Azam RMA Active METOPROLOL SUCCINATE 100 MG [id number]-OCV 1 by mouth daily for blood pressure METOPROLOL SUCCINATE 89210566692 No Longer Active Grace Azam RMA Active METFORMIN HCL ER 500 MG [id number]-OVW Take three tablets by mouth everyday METFORMIN HCL 14692940002 No Longer Active Grace Azam RMA Active LOVAZA 1 GM CAPS 4 daily (for triglycerides) OMEGA-3- ACID ETHYL ESTERS 49837557831 No Longer Active Grace Azam RMA Active TRAZODONE HCL 100 MG ORAL TABS 1 tab by mouth for sleep TRAZODONE HCL 48363426503 No Longer Active Grace Azam RMA Active NOVOFINE 32G X 6 MM MISC use one four times per day INSULIN PEN NEEDLE 51763086422 No Longer Active Grace Nascimento RMA Active BACTROBAN 2 % CREAM Apply to affected area BID for up to 10 days MUPIROCIN CALCIUM 46824120445 No Longer Active Grace Nascimento RMA Active ZOFRAN 4 MG TABS 1 po q4hr PRN Nausea ONDANSETRON HCL 87801984168 Active Salina Han RMA Active KEFLEX 500 MG CAP 1 po BID x 7 days CEPHALEXIN 83843118428 No Longer Active Cherelle Speaks GUIDE CHANGER Active FLUVOXAMINE MALEATE 100 MG TABS Take one (1) tablet by mouth am, 1/2 at noon FLUVOXAMINE MALEATE 95701277440 No Longer Active Mima Vadimum GUIDE CHANGER Active CORICIDIN HBP CONGESTION/COUGH 10-200 MG ORAL CAPS Take as directed on box as needed for cold/flu symptoms DEXTROMETHORPHAN-GUAIFENESIN 82194703560 Active Cherelle Speaks GUIDE CHANGER Active OMEGA-3 300 MG ORAL CAPS 4 caps by mouth daily OMEGA-3 FATTY ACIDS 99286577890 Active Cherelle Speaks GUIDE CHANGER Active FLUVOXAMINE MALEATE 100 MG ORAL TABS Take 1/2 tab at noon FLUVOXAMINE MALEATE 56770985723 No Longer Active Cherelle Speaks GUIDE CHANGER Active [facility] LUBRICANT EYE DROPS 0.4-0.3 % OPHTH SOLN POLYETHYL GLYCOL-PROPYL GLYCOL 03890434383 Active Mima Yokum GUIDE CHANGER Active CLONAZEPAM 1 MG TABS 1/2 pill by mouth three times daily CLONAZEPAM 46757851878 Active Alina Castaneda MD PhD Active MIRALAX POWD 17g by mouth daily, for constipation POLYETHYLENE GLYCOL 3350 05485585370 Active Alina Castaneda MD PhD Active HYDROCODONE-ACETAMINOPHEN 5-325 MG TABS 2 tabs by mouth three times daily for pain HYDROCODONE-ACETAMINOPHEN 60908449435 Active Mima Yokum GUIDE CHANGER Active HUMALOG KWIKPEN 100 UNIT/ML SC SOPN 20 units with breakfast, 10 units with lunch, 10 units with dinner, for diabetes INSULIN LISPRO (HUMAN ) 10896771409 Active Alina Castaneda MD PhD Active LEVEMIR FLEXTOUCH 100 UNIT/ML SC SOPN 70 units SQ each evening, for diabetes INSULIN DETEMIR 08640752938 Active Alina Castaneda MD PhD Active LATUDA 120 MG ORAL TABS 1 pill by mouth nightly LURASIDONE HCL 72957891623 Active Alina Castaneda MD PhD Active COLACE 100 MG CAPS 1 pill by mouth twice daily, for constipation DOCUSATE SODIUM 10859699569 Active Alina Castaneda MD PhD Active TRUETEST TEST STRP check blood sugars 3x/day GLUCOSE BLOOD 51498546012 Active Marvel MENDOZAP Active ACCU-CHEK ROSA UZMA Use device to check blood sugars BLOOD GLUCOSE MONITORING SUPPL 90965775408 No Longer Active Marvel MARROQUIN Active ACCU-CHEK ROSA INVITR STRP use strips with device to check blood sugars 3 times daily GLUCOSE BLOOD 15387327445 No Longer Active Marvel MARROQUIN Active VERAPAMIL HCL ER 180 MG ORAL CR-TABS 1 pill by mouth twice daily, for migraine prevention VERAPAMIL HCL 97907017831 Active Alina Castaneda MD PhD Active CYCLOBENZAPRINE HCL 10 MG TABS 1 tablet by mouth three times daily, scheduled CYCLOBENZAPRINE HCL 50248574496 No Longer Active Alina Castaneda MD PhD Active HUMALOG 100 UNIT/ML SOLN Take 20 units with breakfast, 10u with lunch and suppetr. INSULIN LISPRO (HUMAN) 78612617805 No Longer Active Alina Castaneda MD PhD Active TRUETEST TEST STRP check sugars 4x/day GLUCOSE BLOOD 69968887811 No Longer Active Alina Castaneda MD PhD Active MORPHINE SULFATE 30 MG TABS 1 pill by mouth twice daily, for pain MORPHINE SULFATE 26692352436 Active Mima Erazo GUIDE CHANGER Active ACYCLOVIR 400 MG ORAL TABS 1 pill three times daily x 5 days, for cold sore outbreak ACYCLOVIR 38391810002 No Longer Active Alina Castaneda MD PhD Active PENICILLIN V POTASSIUM 500 MG TABS 1 pill by mouth three times daily PENICILLIN V POTASSIUM 11763573795 No Longer Active Alina Castaneda MD PhD Active UROXATRAL 10 MG [id number] Take 1 tablet by mouth daily ALFUZOSIN HCL 83640330737 No Longer Active Alina Castaneda MD PhD Active THIOTHIXENE 5 MG CAPS by mouth twice a day THIOTHIXENE 72789759413 No Longer Active Alina Castaneda MD PhD Active ZYPREXA 7.5 MG TABS 1 at HS OLANZAPINE 19513197031 No Longer Active Alina Castaneda MD PhD Active BD INSULIN SYRINGE 28G X 1/2" 1 ML MISC 1 four times per day INSULIN SYRINGE-NEEDLE U-100 85443809460 Active Brooksnivia Charles WEAVING LOOM OPERATOR Active TOLTERODINE TARTRATE 2 MG TABS 1 pill twice daily, for bladder TOLTERODINE TARTRATE 82127148241 Active Alina Castaneda MD PhD Active DETROL LA 4 MG [id number]-OHV Take 1 tablet by mouth daily TOLTERODINE TARTRATE 29853959749 No Longer Active Alina Castaneda MD PhD Active TERESE CONTOUR TEST STRP monitor blood sugars 3x/day GLUCOSE BLOOD 10275345554 No Longer Active Alina Castaneda MD PhD Active EQL TRUETEST TEST STRP Test blood sugar TID GLUCOSE BLOOD 90707519801 No Longer Active Alina Castaneda MD PhD Active FLUTICASONE PROPIONATE 50 MCG/ACT SUSP 2 sprays each nostril qDay x 30 days FLUTICASONE PROPIONATE 96099060426 No Longer Active Alina Castaneda MD PhD Active IBUPROFEN 200 MG TABS 1 Q 6 hr. PRN IBUPROFEN 99962001294 No Longer Active Alina Castaneda MD PhD Active NIACIN ER 500 MG CR-TABS 4 qHS (for triglycerides) NIACIN 85140616627 No Longer Active Alina Castaneda MD PhD Active ALFUZOSIN HCL ER 10 MG JP74H-RVQ 1 tablet daily ALFUZOSIN HCL 75891038479 Active Vanessa Hickey MD Active SAPHRIS 5 MG SUBL by mouth twice a day ASENAPINE MALEATE 46237875977 No Longer Active Maliheh Ziglari WEAVING LOOM OPERATOR Active ACETAMINOPHEN 500 MG TABS 2 Q 6 hr. PRN ACETAMINOPHEN 42311455607 No Longer Active Maliheh Ziglari WEAVING LOOM OPERATOR Active ORPHENADRINE CITRATE ER 100 MG AM39Z-IUF 1 every 12 hr. as needed ORPHENADRINE CITRATE 58768731525 No Longer Active Alina Castaneda MD PhD Active NIACIN CR 500 MG CR-TABS 2 qHS NIACIN 94474139348 No Longer Active Alina Castaneda MD PhD Active AMOXICILLIN 500 MG CAPS 2 po BID x 10 days AMOXICILLIN 48968296468 No Longer Active Alina Castaneda MD PhD Active HYDROCODONE-ACETAMINOPHEN 7.5-325 MG TABS 1 four times a day as needed for pain HYDROCODONE-ACETAMINOPHEN 17593960005 No Longer Active Alina Castaneda MD PhD Active DOXEPIN HCL 10 MG CAPS Take 1 tablet by mouth daily DOXEPIN HCL 24290961792 No Longer Active Salina ROJAS Active NAVANE 10 MG CAPS 1/2 tablet twice a day THIOTHIXENE No Longer Active Salina ROJAS Active CYCLOBENZAPRINE HCL 10 MG TABS 1/2 tablet by mouth every 8 hours as needed for muscle spasms CYCLOBENZAPRINE HCL 10858688647 No Longer Active Alina Castaneda MD PhD Active BACTROBAN 2 % CREAM apply to ear and nose twice daily MUPIROCIN CALCIUM 17219507427 No Longer Active Alina Castaneda MD PhD Active HYDROCODONE-ACETAMINOPHEN 5-325 MG TABS take one tablet by mouth every four hours as needed for pain HYDROCODONE-ACETAMINOPHEN 63631337466 No Longer Active Alina Castaneda MD PhD Active ZOLPIDEM TARTRATE 10 MG TABS take at bedtime ZOLPIDEM TARTRATE 18887889258 Active Alina Castaneda MD PhD Active ZYPREXA 5 MG TABS take one tablet by mouth every evening OLANZAPINE 39907309903 No Longer Active Alina Castaneda MD PhD Active ALBUTEROL SULFATE 0.083 % NEBU SOLN one vial per nebulizer TID and PRN cough/ soa ALBUTEROL SULFATE 00420528082 No Longer Active Alina Castaneda MD PhD Active GUAIFENESIN 600 MG TM10O-HYU 1 tablet by mouth twice daily if needed for cough GUAIFENESIN 36094082256 No Longer Active Marvel MARROQUIN Active AZITHROMYCIN 500 MG SOLR 1 po q day AZITHROMYCIN 75474303808 No Longer Active Alina Castaneda MD PhD Active PROMETHAZINE-CODEINE 6.25-10 MG/5ML SYRP 1 tsp po q 6 hours prn cough PROMETHAZINE-CODEINE 00585507054 No Longer Active Alina Castaneda MD PhD Active CEFDINIR 300 MG CAPS by mouth twice a day CEFDINIR 94688185555 No Longer Active Alina Castaneda MD PhD Active METFORMIN HCL 500 MG [id number]-UVA Take 3 tablets by mouth everyday METFORMIN HCL 86130034335 No Longer Active Alina Castaneda MD PhD Active LEVEMIR 100 UNIT/ML SOLN 90 units SQ qHS INSULIN DETEMIR 20586869713 No Longer Active Marvel MARROQUIN Active TOPROL XL 100 MG [id number]-VTO 1 @ HS METOPROLOL SUCCINATE 78734369230 No Longer Active Marvel MARROQUIN Active ALLOPURINOL 300 MG TABS Take one by mouth daily ALLOPURINOL 12130729107 Active Alina Castaneda MD PhD Active ZYPREXA 10 MG TABS Take one by mouth daily OLANZAPINE 10650736002 No Longer Active Alina Castaneda MD PhD Active NOVOLOG 100 UNIT/ML SOLN 40 units with every meal INSULIN ASPART 61587200493 No Longer Active Alina Castaneda MD PhD Active VERAPAMIL HCL CR 120 MG TAB CR 1 qPM VERAPAMIL HCL 61782674094 No Longer Active Salina Han RMA Active ZYPREXA 15 MG TABS Take 1 tablet by mouth daily OLANZAPINE 34973515456 No Longer Active Brooksjohn Charles WEAVING LOOM OPERATOR Active LISINOPRIL 20 MG TABS 1 BID LISINOPRIL 74642252522 Active Alina Castaneda MD PhD Active ALBUTEROL SULFATE (2.5 MG/3ML) 0.083% NEBU 1 neb tid and prn cough ALBUTEROL SULFATE 46755141892 No Longer Active Alina Castaneda MD PhD Active TRAVATAN Z 0.004 % SOLN 1 gtt each eye daily TRAVOPROST 44863003891 Active CRYSTAL Suarez Active LANTUS 100 UNIT/ML SOLN 60 units sq q hs INSULIN GLARGINE 98788090170 No Longer Active CRYSTAL Suarez Active ALBUTEROL SULFATE (2.5 MG/3ML) 0.083% NEBU 1 neb tid and prn cough ALBUTEROL SULFATE (2.5 MG/3ML) 0.083% NEBU 521380 ALBUTEROL SULFATE Inactive ZYPREXA 15 MG TABS Take 1 tablet by mouth daily ZYPREXA 15 MG TABS 349946 OLANZAPINE Inactive VERAPAMIL HCL CR 120 MG TAB CR 1 qPM VERAPAMIL HCL CR 120 MG TAB CR VERAPAMIL HCL Inactive ZYPREXA 10 MG TABS Take one by mouth daily ZYPREXA 10 MG TABS 501633 OLANZAPINE Inactive TOPROL XL 100 MG [id number]-MHW 1 @ HS TOPROL XL 100 MG DL31X-OTP METOPROLOL SUCCINATE Inactive LEVEMIR 100 UNIT/ML SOLN 90 units SQ qHS LEVEMIR 100 UNIT/ML SOLN INSULIN DETEMIR Inactive PROMETHAZINE-CODEINE 6.25-10 MG/5ML SYRP 1 tsp po q 6 hours prn cough PROMETHAZINE-CODEINE 6.25-10 MG/5ML SYRP 495747 PROMETHAZINE- CODEINE Inactive GUAIFENESIN 600 MG CM52J-PVJ 1 tablet by mouth twice daily if needed for cough GUAIFENESIN 600 MG HE03T-DFT GUAIFENESIN Inactive ALBUTEROL SULFATE 0.083 % NEBU SOLN one vial per nebulizer TID and PRN cough/ soa ALBUTEROL SULFATE 0.083 % NEBU SOLN 968847 ALBUTEROL SULFATE Inactive ZYPREXA 5 MG TABS take one tablet by mouth every evening ZYPREXA 5 MG TABS 742885 OLANZAPINE Inactive HYDROCODONE-ACETAMINOPHEN 5-325 MG TABS take one tablet by mouth every four hours as needed for pain HYDROCODONE-ACETAMINOPHEN 5-325 MG TABS 543406 HYDROCODONE-ACETAMINOPHEN Inactive BACTROBAN 2 % CREAM apply to ear and nose twice daily BACTROBAN 2 % CREAM 434965 MUPIROCIN CALCIUM Inactive CYCLOBENZAPRINE HCL 10 MG TABS 1/2 tablet by mouth every 8 hours as needed for muscle spasms CYCLOBENZAPRINE HCL 10 MG TABS 631767 CYCLOBENZAPRINE HCL Inactive NAVANE 10 MG CAPS 1/2 tablet twice a day NAVANE 10 MG CAPS THIOTHIXENE Inactive DOXEPIN HCL 10 MG CAPS Take 1 tablet by mouth daily DOXEPIN HCL 10 MG CAPS 7322845 DOXEPIN HCL Inactive HYDROCODONE-ACETAMINOPHEN 7.5-325 MG TABS 1 four times a day as needed for pain HYDROCODONE-ACETAMINOPHEN 7.5-325 MG TABS 726591 HYDROCODONE-ACETAMINOPHEN Inactive NIACIN CR 500 MG CR-TABS 2 qHS NIACIN CR 500 MG CR- TABS NIACIN Inactive ORPHENADRINE CITRATE ER 100 MG AW42H-XSU 1 every 12 hr. as needed ORPHENADRINE CITRATE ER 100 MG NB73R-EQV ORPHENADRINE CITRATE Inactive ACETAMINOPHEN 500 MG TABS 2 Q 6 hr. PRN ACETAMINOPHEN 500 MG TABS 492858 ACETAMINOPHEN Inactive SAPHRIS 5 MG SUBL by mouth twice a day SAPHRIS 5 MG SUBL ASENAPINE MALEATE Inactive NIACIN ER 500 MG CR-TABS 4 qHS (for triglycerides) NIACIN ER 500 MG CR-TABS NIACIN Inactive IBUPROFEN 200 MG TABS 1 Q 6 hr. PRN IBUPROFEN 200 MG TABS 939196 IBUPROFEN Inactive FLUTICASONE PROPIONATE 50 MCG/ACT SUSP 2 sprays each nostril qDay x 30 days FLUTICASONE PROPIONATE 50 MCG/ACT SUSP 263669 FLUTICASONE PROPIONATE Inactive EQL TRUETEST TEST STRP Test blood sugar TID EQL TRUETEST TEST STRP GLUCOSE BLOOD Inactive TERESE CONTOUR TEST STRP monitor blood sugars 3x/day TERESE CONTOUR TEST STRP GLUCOSE BLOOD Inactive DETROL LA 4 MG [id number] Take 1 tablet by mouth daily DETROL LA 4 MG VR33Z-QAH TOLTERODINE TARTRATE Inactive ZYPREXA 7.5 MG TABS 1 at HS ZYPREXA 7.5 MG TABS 873120 OLANZAPINE Inactive THIOTHIXENE 5 MG CAPS by mouth twice a day THIOTHIXENE 5 MG CAPS 597697 THIOTHIXENE Inactive UROXATRAL 10 MG BL57U-BLN Take 1 tablet by mouth daily UROXATRAL 10 MG ZO77C-FCK ALFUZOSIN HCL Inactive ACYCLOVIR 400 MG ORAL TABS 1 pill three times daily x 5 days, for cold sore outbreak ACYCLOVIR 400 MG ORAL TABS 252461 ACYCLOVIR Inactive TRUETEST TEST STRP check sugars 4x/day TRUETEST TEST STRP GLUCOSE BLOOD Inactive HUMALOG 100 UNIT/ML SOLN Take 20 units with breakfast, 10u with lunch and suppetr. HUMALOG 100 UNIT/ML SOLN INSULIN LISPRO ( HUMAN) Inactive CYCLOBENZAPRINE HCL 10 MG TABS 1 tablet by mouth three times daily, scheduled CYCLOBENZAPRINE HCL 10 MG TABS 861015 CYCLOBENZAPRINE HCL Inactive ACCU-CHEK ROSA INVITR STRP use strips with device to check blood sugars 3 times daily ACCU-CHEK ROSA INVITR STRP GLUCOSE BLOOD Inactive ACCU-CHEK ROSA UZMA Use device to check blood sugars ACCU-CHEK ROSA UZMA BLOOD GLUCOSE MONITORING SUPPL Inactive FLUVOXAMINE MALEATE 100 MG ORAL TABS Take 1/2 tab at noon FLUVOXAMINE MALEATE 100 MG ORAL TABS 332766 FLUVOXAMINE MALEATE Inactive FLUVOXAMINE MALEATE 100 MG TABS Take one (1) tablet by mouth am, 1/2 at noon FLUVOXAMINE MALEATE 100 MG TABS 625479 FLUVOXAMINE MALEATE Inactive BACTROBAN 2 % CREAM Apply to affected area BID for up to 10 days BACTROBAN 2 % CREAM 421306 MUPIROCIN CALCIUM Inactive NOVOFINE 32G X 6 MM MISC use one four times per day NOVOFINE 32G X 6 MM MISC INSULIN PEN NEEDLE Inactive TRAZODONE HCL 100 MG ORAL TABS 1 tab by mouth for sleep TRAZODONE HCL 100 MG ORAL TABS 995970 TRAZODONE HCL Inactive LOVAZA 1 GM CAPS 4 daily (for triglycerides) LOVAZA 1 GM CAPS 016828 JYQUZ-7-LCQS ETHYL ESTERS Inactive METFORMIN HCL ER 500 MG OG82G-AZI Take three tablets by mouth everyday METFORMIN HCL ER 500 MG TZ83Z-JTT METFORMIN HCL Inactive METOPROLOL SUCCINATE 100 MG HM07P-GEY 1 by mouth daily for blood pressure METOPROLOL SUCCINATE 100 MG NX06A-UFW METOPROLOL SUCCINATE Inactive CEFDINIR 300 MG CAPS by mouth twice a day CEFDINIR 300 MG CAPS 069361 CEFDINIR Inactive AZITHROMYCIN 500 MG SOLR 1 po q day AZITHROMYCIN 500 MG SOLR 232863 AZITHROMYCIN Inactive AMOXICILLIN 500 MG CAPS 2 po BID x 10 days AMOXICILLIN 500 MG CAPS 011286 AMOXICILLIN Inactive PENICILLIN V POTASSIUM 500 MG TABS 1 pill by mouth three times daily PENICILLIN V POTASSIUM 500 MG TABS 588439 PENICILLIN V POTASSIUM Inactive KEFLEX 500 MG CAP 1 po BID x 7 days KEFLEX 500 MG CAP 503004 CEPHALEXIN Inactive Immunizations Vaccine Administration Date Value [...] Fluvirin, Fluarix, Agriflu(>=18 yo)) Fluzone (>3 yrs.) [[id number]] Influenza, seasonal, injectable pneumococcal immunization administered Pneumovax [...] HGBA1C - Chemistry sodium, serum 131 mmol/L 515-235 6898/12/30 potassium, serum 5.0 mmol/L 3.5-5.2 chloride, serum 95 mmol/L 98-107 carbon dioxide, venous blood 26.7 mmol/L 21.0-32.0 blood glucose 112 mg/dL 65-110 calcium, serum 9.2 mg/dL 8.5-10.1 urea nitrogen, blood 12 mg/dL 7-18 creatinine, serum 1.10 mg/dL 0.60-1.30 hemoglobin A1C, blood, as % of total hemoglobin 5.8 % 4.3-6.0 Lab Report: Basic Metabolic Panel, HGBA1C, MICROALBUMIN - Chemistry sodium, serum 137 mmol/L 665-762 3739/05/19 potassium, serum 5.2 mmol/L 3.5-5.2 chloride, serum [...] Panel - Chemistry sodium, serum 137 mmol/L 401-938 1806/10/12 potassium, serum 4.8 mmol/L 3.5-5.2 chloride, serum 102 mmol/L 98-107 carbon dioxide, venous blood 27.6 mmol/L 21.0-32.0 blood glucose 168 mg/dL 65-110 calcium, serum 9.0 mg/dL 8.5-10.1 urea nitrogen, blood 15 mg/dL 7-18 creatinine, serum 1.04 mg/dL 0.55-1.30 sodium, serum 138 mmol/L 193-179 3683/11/11 potassium, serum 4.7 mmol/L 3.5-5.2 chloride, serum [...] % 11.6-14.8 platelet count 252 10^3/MM^3 10*3/mm3 021-217 1406/10/12 leukocyte count, blood 5.8 10^3/MM^3 10*3/mm3 4.6-10.2 [...] 240 10^3/MM^3 10*3/mm3 142-424 Lab Report: Chlamydia/GC APTIMA/47165, HIV-1/2 Agn/Dominga/01911, RPR (DX) W ... - Chemistry hepatitis B surface antigen NON-REACTIVE NON-REACTIVE Lab Report: Chlamydia/GC APTIMA/74895, HIV-1/2 Agn/Dominga/73785, RPR (DX) W ... - Lab chlamydia DNA probe NOT DETECTED NOT DETECTED Lab Report: Chlamydia/GC APTIMA/18279, HIV-1/2 Agn/Dominga/55774, RPR (DX) W ... - Microbiology Neisseria gonorrhoeae DNA probe NOT DETECTED NOT DETECTED Lab Report: Chlamydia/GC APTIMA/15730, HIV-1/2 Agn/Dominga/28833, RPR (DX) W ... - Serology rapid plasma reagin antibody titer NON-REACTIVE NON-REACTIVE Lab Report: HGBA1C - Chemistry hemoglobin A1C, blood, as % of total hemoglobin 6.1 % 4.3-6.0 Lab Report: Lipid Panel, HEPATIC PANEL, MICROALBUMIN, CBC - Chemistry cholesterol, serum 131 mg/dL 491-417 0632/06/03 triglyceride, serum, fasting 383 mg/dL 30-200 HDL [...] 4.7 mg/dL 2.6-7.2 cholesterol, serum 142 mg/dL 357-293 5593/06/26 triglyceride, serum, fasting 272 mg/dL 30-200 HDL [...] negative Encounters Code Encounter Date Provider Facility CPT-67041 Level 3 Est. Patient 14:39:00 TREE FALLER Vanessa Hickey MD [facility] CPT-92505 Level 2 Est. Patient 18:43:34 CDT Mima Erazo [facility] CPT-59277 Level 3 Est. Patient 16:22:09 CDT Cherelle Avila [facility] [place]-01765 Level 4 Est. Patient 17:55:14 CDT Mima Erazo [facility] CPT-62889 Level 2 Est. Patient 17:13:21 CDT Alina Castaneda MD [facility]04669 Level 3 Est. Patient 14:46:15 CDT Vanessa Hickey MD [facility]-17055 Level 3 Est. Patient 09:34:56 CDT Alina Castaneda MD [facility]74217 Level 3 Est. Patient 21:40:19 CDT Mima Erazo [facility]-38951 Level 3 Est. Patient 09:26:40 CDT Marvel Charles [facility]-21481 Level 3 Est. Patient 12:36:43 CDT Vanessa Hickey MD [facility]41741 Level 3 Est. Patient 12:57:49 CDT Vanessa Hickey MD [facility]-79306 Level 3 Est. Patient 00:28:25 CDT Alina Castaneda MD [facility]-50689 Level 2 Est. Patient 12:52:14 CDT Alina Castaneda MD [facility]16427 Level 3 Est. Patient 11:51:18 TREE FALLER Alina Castaneda MD [facility]61486 Level 3 Est. Patient 10:09:22 TREE FALLER Alina Castaneda MD [facility]36723 Level 3 Est. Patient 14:36:26 TREE FALLER Marvel Charles [facility]36575 Level 3 Est. Patient 13:34:47 TREE FALLER Alina Castaneda MD PhD [facility]-17133 Level 3 Est. Patient 19:52:08 TREE FALLER Alina Castaneda MD [facility]-96928 Level 3 Est. Patient 10:01:51 TREE FALLER Marvel Gurdeepajayestela [facility]-87727 Level 3 Est. Patient 21:54:06 CDT Vanessa Hickey MD [facility]-82887 Level 3 Est. Patient 08:54:46 CDT Alina Castaneda MD [facility]-51462 Level 3 Est. Patient 09:32:11 CDT [facility]70816 Level 3 Est. Patient 12:02:49 CDT Alina Castaneda MD [facility]-69226 Level 3 Est. Patient 19:17:33 CDT Alina Castaneda MD [facility]-13931 Level 3 Est. Patient 13:19:10 CDT Brooksjohn Charles [facility]-54525 Level 3 Est. Patient 08:20:05 CDT Alina Castaneda MD [facility]-81765 Level 3 Est. Patient 15:17:18 CDT Alina Castaneda MD [facility]-87293 Level 3 Est. Patient 14:25:36 TREE FALLER Brookslashondanivia Araceli [facility]-24022 Level 3 Est. Patient 10:09:15 TREE FALLER Marvel Araceli [facility]-10928 Level 3 Est. Patient 21:28:43 CDT Alina Castaneda MD [facility]-26813 Level 3 Est. Patient 15:20:11 CDT Marvel Charles [facility] CPT-17684 Level 4 Est. Patient 19:08:12 CDT Alina Castaneda MD [facility]-75816 Level 3 Est. Patient 15:06:39 [facility]-48039 Level 4 Est. Patient 17:48:15 CDT Alina Castaneda MD [facility]-39464 Level 3 Est. Patient 14:53:49 CDT Alina Castaneda MD [facility]-52518 Level 3 Est. Patient 09:35:16 CDT Alina Castaneda MD [facility]-17660 Level 3 Est. Patient 12:23:22 CDT Alina Castaneda MD [facility]-00341 Level 3 Est. Patient 16:19:15 CDT Alina Castaneda MD [facility]-09359 Level 3 Est. Patient 21:39:56 TREE FALLER Alina Castaneda MD [facility]-65818 Level 4 Est. Patient 14:12:56 TREE FALLER Alina Castaneda MD [facility]-74759 Level 2 Est. Patient 15:34:57 TREE FALLER Alina Castaneda MD [facility]-66001 Level 3 Est. Patient 12:17:04 TREE FALLER Alina Castaneda MD [facility]-02815 Level 3 Est. Patient 09:18:18 TREE FALLER Marvel Charles [facility]-46744 Level 2 Est. Patient 21:50:24 CDT Alina Castaneda MD [facility]47188 Level 3 Est. Patient 09:17:28 CDT Marvel Araceli [facility]-30575 Level 4 Est. Patient 18:54:02 CDT Alina Castaneda MD [facility]-80595 Level 3 Est. Patient 10:47:10 CDT Alina Castaneda MD [facility]-35144 Level 3 Est. Patient 09:22:20 CDT Marvel Araceli [facility]-57025 Level 3 Est. Patient 16:39:43 CDT Marvel Araceli [facility]-78718 Level 3 Est. Patient 16:05:16 CDT Alina Castaneda MD [facility]-46969 Level 3 Est. Patient 00:29:15 CDT Alina Castaneda MD [facility]-29191 Level 3 Est. Patient 10:49:22 TREE FALLER Brookslashondanivia Araceli [facility]-08653 Level 3 Est. Patient 21:30:19 TREE FALLER Alina Castaneda MD [facility]-68121 Level 4 Est. Patient 17:04:11 TREE FALLER Brookslashondanivia Araceli [facility]-86232 Level 3 Est. Patient 15:34:11 TREE FALLER [place] [facility]-34017 Level 2 Est. Patient 12:51:58 TREE FALLER Alina Castaneda MD [facility]-62625 Level 3 Est. Patient 13:20:01 TREE FALLER Alina Castaneda MD [facility]-15974 Level 3 Est. Patient 09:23:35 CDT Alina Castaneda MD [facility] Procedures Code Procedure Name Date Entry Date Standard Description CPT-84654 Bladder Scan 14:39:01 TREE FALLER CPT-TCMM Transitional Care Mgmt-Moderate 10:30:19 TREE FALLER CPT-69735 Bladder Scan 12:36:44 CDT CPT-75671 Bladder Scan 21:54:06 CDT CPT-G0008 Administration of Influenza Virus Vaccine 13:05:26 CDT CPT-63701 Fluzone Quadrivalent Intramuscular Suspension 0.5 ML 13: 05:26 CDT CPT-03765 Administration single or combination vaccine inc oral 11 :49:51 CDT CPT-68583 Pneumovax 11:49:51 CDT CPT-09837 Ribs unilateral 2V 12:37:22 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
--- OUTSIDE RECORDS SUMMARY | 2018-07-02 17:58 | XMS REPORT | Clinical Summary ---
Author Author Admin, TERELL Organization [facility] Address Unknown Phone Unavailable Allergies, Adverse 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 Erazo TELEPHONE SERVICE ADVISER Benign paroxysmal positional vertigo Vertigo, benign paroxysmal [...] 0.4-0.3 % OPHTH SOLN POLYETHYL GLYCOL-PROPYL GLYCOL 62186483452 Active Mima Yokum TELEPHONE SERVICE ADVISER Active FLUVOXAMINE MALEATE 100 MG ORAL TABS Take 1/2 tab at noon FLUVOXAMINE MALEATE 89869186448 Active Mima Yokum [employer]ONE SERVICE ADVISER Active CLONAZEPAM 1 MG TABS 1/2 pill by mouth three times daily CLONAZEPAM 84021850056 Active Alina Castaneda MD PhD Active MIRALAX POWD 17g by mouth daily, for constipation POLYETHYLENE GLYCOL 3350 28294590599 Active Alina Castaneda MD PhD Active HYDROCODONE-ACETAMINOPHEN 5-325 MG TABS 2 tabs by mouth three times daily for pain HYDROCODONE-ACETAMINOPHEN 07835863209 Active Mima Erazo APRN Active HUMALOG KWIKPEN 100 UNIT/ML SC SOPN 20 units with breakfast, 10 units with lunch, 10 units with dinner, for diabetes INSULIN LISPRO (HUMAN ) 44604246965 Active Alina Castaneda MD PhD Active LEVEMIR FLEXTOUCH 100 UNIT/ML SC SOPN 70 units SQ each evening, for diabetes INSULIN DETEMIR 00918000471 Active Alina Castaneda MD PhD Active LATUDA 120 MG ORAL TABS 1 pill by mouth nightly LURASIDONE HCL 66979649238 Active Alina Castaneda MD PhD Active COLACE 100 MG CAPS 1 pill by mouth twice daily, for constipation DOCUSATE SODIUM 06048726880 Active Alina Castaneda MD PhD Active TRUETEST TEST STRP check blood sugars 3x/day GLUCOSE BLOOD 90922881826 Active Marvel Charles [employer] Active ACCU-CHEK ROSA UZMA Use device to check blood sugars BLOOD GLUCOSE MONITORING SUPPL 68431250506 No Longer Active Maleh Ziglari [employer] Active ACCU-CHEK ROSA INVITR STRP use strips with device to check blood sugars 3 times daily GLUCOSE BLOOD 06593539908 No Longer Active Malnivia Mackenzieglari [employer] Active VERAPAMIL HCL ER 180 MG ORAL CR-TABS 1 pill by mouth twice daily, for migraine prevention VERAPAMIL HCL 26616431625 Active Alina Castaneda MD PhD Active CYCLOBENZAPRINE HCL 10 MG TABS 1 tablet by mouth three times daily, scheduled CYCLOBENZAPRINE HCL 45615580540 No Longer Active Alina Castaneda MD PhD Active HUMALOG 100 UNIT/ML SOLN Take 20 units with breakfast, 10u with lunch and suppetr. INSULIN LISPRO (HUMAN) 54407252091 No Longer Active Alina Castaneda MD PhD Active TRUETEST TEST STRP check sugars 4x/day GLUCOSE BLOOD 34885298051 No Longer Active Alina Castaneda MD PhD Active MORPHINE SULFATE 30 MG TABS 1 pill by mouth twice daily, for pain MORPHINE SULFATE 14114612095 Active Alina Castaneda MD PhD Active ACYCLOVIR 400 MG ORAL TABS 1 pill three times daily x 5 days, for cold sore outbreak ACYCLOVIR 13293700618 No Longer Active Alina Castaneda MD PhD Active PENICILLIN V POTASSIUM 500 MG TABS 1 pill by mouth three times daily PENICILLIN V POTASSIUM 91967455647 No Longer Active Alina Castaneda MD PhD Active UROXATRAL 10 MG [id number]-FOS Take 1 tablet by mouth daily ALFUZOSIN HCL 25722506351 No Longer Active Alina Castaneda MD PhD Active THIOTHIXENE 5 MG CAPS by mouth twice a day THIOTHIXENE 48670563541 No Longer Active Alina Castaneda MD PhD Active ZYPREXA 7.5 MG TABS 1 at HS OLANZAPINE 82319141401 No Longer Active Alina Castaneda MD PhD Active BD INSULIN SYRINGE 28G X 1/2" 1 ML MISC 1 four times per day INSULIN SYRINGE-NEEDLE U-100 85564282922 Active Marvel MENDOZAP Active TOLTERODINE TARTRATE 2 MG TABS 1 pill twice daily, for bladder TOLTERODINE TARTRATE 94433772016 Active Alina Castaneda MD PhD Active DETROL LA 4 MG [id number] Take 1 tablet by mouth daily TOLTERODINE TARTRATE 26493266857 No Longer Active Alina Castaneda MD PhD Active TERESE CONTOUR TEST STRP monitor blood sugars 3x/day GLUCOSE BLOOD 80844604611 No Longer Active Alina Castaneda MD PhD Active EQL TRUETEST TEST STRP Test blood sugar TID GLUCOSE BLOOD 70257397311 No Longer Active Alina Castaneda MD PhD Active FLUTICASONE PROPIONATE 50 MCG/ACT SUSP 2 sprays each nostril qDay x 30 days FLUTICASONE PROPIONATE 01514270861 No Longer Active Alina Castaneda MD PhD Active IBUPROFEN 200 MG TABS 1 Q 6 hr. PRN IBUPROFEN 84242968721 No Longer Active Alina Castaneda MD PhD Active NIACIN ER 500 MG CR-TABS 4 qHS (for triglycerides) NIACIN 26485217988 No Longer Active Alina Castaneda MD PhD Active ALFUZOSIN HCL ER 10 MG [id number] 1 tablet daily ALFUZOSIN HCL 40947069142 Active Vanessa Hickey MD Active LOVAZA 1 GM CAPS 4 daily (for triglycerides) [id number] ETHYL ESTERS 22763631027 Active Alina Castaneda MD PhD Active SAPHRIS 5 MG SUBL by mouth twice a day ASENAPINE MALEATE 36819211894 No Longer Active Marvel MARROQUIN Active ACETAMINOPHEN 500 MG TABS 2 Q 6 hr. PRN ACETAMINOPHEN 38333660501 No Longer Active Marvel MARROQUIN Active ORPHENADRINE CITRATE ER 100 MG [id number] 1 every 12 hr. as needed ORPHENADRINE CITRATE 01561681935 No Longer Active Alina Castaneda MD PhD Active NIACIN CR 500 MG CR-TABS 2 qHS NIACIN 53472406521 No Longer Active Alina Castaneda MD PhD Active AMOXICILLIN 500 MG CAPS 2 po BID x 10 days AMOXICILLIN 85554919601 No Longer Active Alina Castaneda MD PhD Active HYDROCODONE-ACETAMINOPHEN 7.5-325 MG TABS 1 four times a day as needed for pain HYDROCODONE-ACETAMINOPHEN 96335096145 No Longer Active Alina Castaneda MD PhD Active METFORMIN HCL ER 500 MG GE22A-LTC Take three tablets by mouth everyday METFORMIN HCL 82645939199 Active Maliheh Ziglari [employer] Active DOXEPIN HCL 10 MG CAPS Take 1 tablet by mouth daily DOXEPIN HCL 30817453957 No Longer Active Salina Han A Active NAVANE 10 MG CAPS 1/2 tablet twice a day THIOTHIXENE No Longer Active Salina Han [facility] Active CYCLOBENZAPRINE HCL 10 MG TABS 1/2 tablet by mouth every 8 hours as needed for muscle spasms CYCLOBENZAPRINE HCL 93644209506 No Longer Active Alina Castaneda MD PhD Active BACTROBAN 2 % CREAM apply to ear and nose twice daily MUPIROCIN CALCIUM 84106713198 No Longer Active Alina Castaneda MD PhD Active HYDROCODONE-ACETAMINOPHEN 5-325 MG TABS take one tablet by mouth every four hours as needed for pain HYDROCODONE-ACETAMINOPHEN 58882231900 No Longer Active Alina Castaneda MD PhD Active ZOLPIDEM TARTRATE 10 MG TABS take at bedtime ZOLPIDEM TARTRATE 81937429614 Active Alina Castaneda MD PhD Active ZYPREXA 5 MG TABS take one tablet by mouth every evening OLANZAPINE 71631234902 No Longer Active Alina Castaneda MD PhD Active ALBUTEROL SULFATE 0.083 % NEBU SOLN one vial per nebulizer TID and PRN cough/ soa ALBUTEROL SULFATE 42041678225 No Longer Active Alina Castaneda MD PhD Active GUAIFENESIN 600 MG CE76L-FDB 1 tablet by mouth twice daily if needed for cough GUAIFENESIN 12886151990 No Longer Active Marvel MARROQUIN Active AZITHROMYCIN 500 MG SOLR 1 po q day AZITHROMYCIN 74172012118 No Longer Active Alina Castaneda MD PhD Active METOPROLOL SUCCINATE 100 MG WI34R-FSW 1 by mouth daily for blood pressure METOPROLOL SUCCINATE 59545820669 Active Alina Castaneda MD PhD Active PROMETHAZINE-CODEINE 6.25-10 MG/5ML SYRP 1 tsp po q 6 hours prn cough PROMETHAZINE-CODEINE 63293702935 No Longer Active Alina Castaneda MD PhD Active CEFDINIR 300 MG CAPS by mouth twice a day CEFDINIR 64101319793 No Longer Active Alina Castaneda MD PhD Active METFORMIN HCL 500 MG UV25T-ROO Take 3 tablets by mouth everyday METFORMIN HCL 91006274303 No Longer Active Alina Castaneda MD PhD Active LEVEMIR 100 UNIT/ML SOLN 90 units SQ qHS INSULIN DETEMIR 64129877476 No Longer Active Marvel MARROQUIN Active TOPROL XL 100 MG FD27B-GVW 1 @ HS METOPROLOL SUCCINATE 70668442362 No Longer Active Marvel MARROQUIN Active ALLOPURINOL 300 MG TABS Take one by mouth daily ALLOPURINOL 61511942145 Active Alina Castaneda MD PhD Active ZYPREXA 10 MG TABS Take one by mouth daily OLANZAPINE 85768436825 No Longer Active Alina Castaneda MD PhD Active NOVOLOG 100 UNIT/ML SOLN 40 units with every meal INSULIN ASPART 91895707633 No Longer Active Alina Castaneda MD PhD Active VERAPAMIL HCL CR 120 MG TAB CR 1 qPM VERAPAMIL HCL 88822565390 No Longer Active Salina Han [facility] Active ZYPREXA 15 MG TABS Take 1 tablet by mouth daily OLANZAPINE 19492764090 No Longer Active Marvel Thurstonestela MARROQUIN Active LISINOPRIL 20 MG TABS 1 BID LISINOPRIL 74649887244 Active Alina Castaneda MD PhD Active ALBUTEROL SULFATE (2.5 MG/3ML) 0.083% NEBU 1 neb tid and prn cough ALBUTEROL SULFATE 41259507929 No Longer Active Alina Castaneda MD PhD Active FLUVOXAMINE MALEATE 100 MG TABS Take one (1) tablet by mouth am, 05/25 at noon, 1 pm FLUVOXAMINE MALEATE 87542462744 Active Alina Castaneda MD PhD Active TRAVATAN Z 0.004 % SOLN 1 gtt each eye daily TRAVOPROST 12703326136 Active CRYSTAL Suarez Active LANTUS 100 UNIT/ML SOLN 60 units sq q hs INSULIN GLARGINE 48252662838 No Longer Active CRYSTAL Suarez Active ALBUTEROL SULFATE (2.5 MG/3ML) 0.083% NEBU 1 neb tid and prn cough ALBUTEROL SULFATE (2.5 MG/3ML) 0.083% NEBU 171046 ALBUTEROL SULFATE Inactive ZYPREXA 15 MG TABS Take 1 tablet by mouth daily ZYPREXA 15 MG TABS 454884 OLANZAPINE Inactive VERAPAMIL HCL CR 120 MG TAB CR 1 qPM VERAPAMIL HCL CR 120 MG TAB CR VERAPAMIL HCL Inactive ZYPREXA 10 MG TABS Take one by mouth daily ZYPREXA 10 MG TABS 054358 OLANZAPINE Inactive TOPROL XL 100 MG [id number]-FZM 1 @ HS TOPROL XL 100 MG YH93N-UEM METOPROLOL SUCCINATE Inactive LEVEMIR 100 UNIT/ML SOLN 90 units SQ qHS LEVEMIR 100 UNIT/ML SOLN INSULIN DETEMIR Inactive PROMETHAZINE-CODEINE 6.25-10 MG/5ML SYRP 1 tsp po q 6 hours prn cough PROMETHAZINE-CODEINE 6.25-10 MG/5ML SYRP 300043 PROMETHAZINE- CODEINE Inactive GUAIFENESIN 600 MG IH31I-XAE 1 tablet by mouth twice daily if needed for cough GUAIFENESIN 600 MG FI30N-YHA GUAIFENESIN Inactive ALBUTEROL SULFATE 0.083 % NEBU SOLN one vial per nebulizer TID and PRN cough/ soa ALBUTEROL SULFATE 0.083 % NEBU SOLN 470733 ALBUTEROL SULFATE Inactive ZYPREXA 5 MG TABS take one tablet by mouth every evening ZYPREXA 5 MG TABS 876039 OLANZAPINE Inactive HYDROCODONE-ACETAMINOPHEN 5-325 MG TABS take one tablet by mouth every four hours as needed for pain HYDROCODONE-ACETAMINOPHEN 5-325 MG TABS 312695 HYDROCODONE-ACETAMINOPHEN Inactive BACTROBAN 2 % CREAM apply to ear and nose twice daily BACTROBAN 2 % CREAM 922123 MUPIROCIN CALCIUM Inactive CYCLOBENZAPRINE HCL 10 MG TABS 1/2 tablet by mouth every 8 hours as needed for muscle spasms CYCLOBENZAPRINE HCL 10 MG TABS 365418 CYCLOBENZAPRINE HCL Inactive NAVANE 10 MG CAPS 1/2 tablet twice a day NAVANE 10 MG CAPS THIOTHIXENE Inactive DOXEPIN HCL 10 MG CAPS Take 1 tablet by mouth daily DOXEPIN HCL 10 MG CAPS 7963308 DOXEPIN HCL Inactive HYDROCODONE-ACETAMINOPHEN 7.5-325 MG TABS 1 four times a day as needed for pain HYDROCODONE-ACETAMINOPHEN 7.5-325 MG TABS 124892 HYDROCODONE-ACETAMINOPHEN Inactive NIACIN CR 500 MG CR-TABS 2 qHS NIACIN CR 500 MG CR- TABS NIACIN Inactive ORPHENADRINE CITRATE ER 100 MG OP28Z-CJI 1 every 12 hr. as needed ORPHENADRINE CITRATE ER 100 MG FT59I-OGV ORPHENADRINE CITRATE Inactive ACETAMINOPHEN 500 MG TABS 2 Q 6 hr. PRN ACETAMINOPHEN 500 MG TABS 274867 ACETAMINOPHEN Inactive SAPHRIS 5 MG SUBL by mouth twice a day SAPHRIS 5 MG SUBL ASENAPINE MALEATE Inactive NIACIN ER 500 MG CR-TABS 4 qHS (for triglycerides) NIACIN ER 500 MG CR-TABS NIACIN Inactive IBUPROFEN 200 MG TABS 1 Q 6 hr. PRN IBUPROFEN 200 MG TABS 630119 IBUPROFEN Inactive FLUTICASONE PROPIONATE 50 MCG/ACT SUSP 2 sprays each nostril qDay x 30 days FLUTICASONE PROPIONATE 50 MCG/ACT SUSP 133327 FLUTICASONE PROPIONATE Inactive EQL TRUETEST TEST STRP Test blood sugar TID EQL TRUETEST TEST STRP GLUCOSE BLOOD Inactive TERESE CONTOUR TEST STRP monitor blood sugars 3x/day TERESE CONTOUR TEST STRP GLUCOSE BLOOD Inactive DETROL LA 4 MG [id number] Take 1 tablet by mouth daily DETROL LA 4 MG MP41A-FRJ TOLTERODINE TARTRATE Inactive ZYPREXA 7.5 MG TABS 1 at HS ZYPREXA 7.5 MG TABS 821753 OLANZAPINE Inactive THIOTHIXENE 5 MG CAPS by mouth twice a day THIOTHIXENE 5 MG CAPS 246147 THIOTHIXENE Inactive UROXATRAL 10 MG NR56C-XCK Take 1 tablet by mouth daily UROXATRAL 10 MG PM16G-ZND ALFUZOSIN HCL Inactive ACYCLOVIR 400 MG ORAL TABS 1 pill three times daily x 5 days, for cold sore outbreak ACYCLOVIR 400 MG ORAL TABS 100387 ACYCLOVIR Inactive TRUETEST TEST STRP check sugars 4x/day TRUETEST TEST STRP GLUCOSE BLOOD Inactive HUMALOG 100 UNIT/ML SOLN Take 20 units with breakfast, 10u with lunch and suppetr. HUMALOG 100 UNIT/ML SOLN INSULIN LISPRO ( HUMAN) Inactive CYCLOBENZAPRINE HCL 10 MG TABS 1 tablet by mouth three times daily, scheduled CYCLOBENZAPRINE HCL 10 MG TABS 240489 CYCLOBENZAPRINE HCL Inactive ACCU-CHEK ROSA INVITR STRP use strips with device to check blood sugars 3 times daily ACCU-CHEK ROSA INVITR STRP GLUCOSE BLOOD Inactive ACCU-CHEK ROSA UZMA Use device to check blood sugars ACCU-CHEK ROSA UZMA BLOOD GLUCOSE MONITORING SUPPL Inactive CEFDINIR 300 MG CAPS by mouth twice a day CEFDINIR 300 MG CAPS 899251 CEFDINIR Inactive AZITHROMYCIN 500 MG SOLR 1 po q day AZITHROMYCIN 500 MG SOLR 992705 AZITHROMYCIN Inactive AMOXICILLIN 500 MG CAPS 2 po BID x 10 days AMOXICILLIN 500 MG CAPS 610098 AMOXICILLIN Inactive PENICILLIN V POTASSIUM 500 MG TABS 1 pill by mouth three times daily PENICILLIN V POTASSIUM 500 MG TABS 661292 PENICILLIN V POTASSIUM Inactive Immunizations Vaccine Administration [...] Fluvirin, Fluarix, Agriflu(>=18 yo)) Fluzone (>3 yrs.) [QNB509] Influenza, seasonal, injectable pneumococcal immunization administered Pneumovax [...] blood pressure, diastolic, sitting 70 mm[Hg] BP garcai blood pressure, diastolic, standing 73 mm[Hg] BP [...] HGBA1C - Chemistry sodium, serum 131 mmol/L 165-819 4109/12/30 potassium, serum 5.0 mmol/L 3.5-5.2 chloride, serum 95 mmol/L 98-107 carbon dioxide, venous blood 26.7 mmol/L 21.0-32.0 blood glucose 112 mg/dL 65-110 calcium, serum 9.2 mg/dL 8.5-10.1 urea nitrogen, blood 12 mg/dL 7-18 creatinine, serum 1.10 mg/dL 0.60-1.30 hemoglobin A1C, blood, as % of total hemoglobin 5.8 % 4.3-6.0 Lab Report: Basic Metabolic Panel, HGBA1C, MICROALBUMIN - Chemistry sodium, serum 137 mmol/L 916-248 8134/05/19 potassium, serum 5.2 mmol/L 3.5-5.2 chloride, serum [...] microalbumin, urine 10 0-19 Lab Report: Chlamydia/GC APTIMA/97218, HIV-1/2 Agn/Dominga/61417, RPR (DX) W ... - Chemistry hepatitis B surface antigen NON-REACTIVE NON-REACTIVE Lab Report: Chlamydia/GC APTIMA/08528, HIV-1/2 Agn/Dominga/32294, RPR (DX) W ... - Lab chlamydia DNA probe NOT DETECTED NOT DETECTED Lab Report: Chlamydia/GC APTIMA/09106, HIV-1/2 Agn/Dominga/37107, RPR (DX) W ... - Microbiology Neisseria gonorrhoeae DNA probe NOT DETECTED NOT DETECTED Lab Report: Chlamydia/GC APTIMA/77392, HIV-1/2 Agn/Dominga/71070, RPR (DX) W ... - Serology rapid plasma reagin antibody titer NON-REACTIVE NON-REACTIVE Lab Report: Comp. Metabolic Panel - Chemistry sodium, serum 127 mmol/L 210-711 7802/10/27 potassium, serum 4.1 mmol/L 3.5-5.2 chloride, serum [...] CBC - Chemistry cholesterol, serum 131 mg/dL 279-624 6704/06/03 triglyceride, serum, fasting 383 mg/dL 30-200 HDL [...] 4.7 mg/dL 2.6-7.2 cholesterol, serum 142 mg/dL 130-045 4992/06/26 triglyceride, serum, fasting 272 mg/dL 30-200 HDL [...] mg/dL Encounters Code Encounter Date Provider Facility CPT-29683 Level 4 Est. Patient 17:55:14 CDT Mimacecily Erazo [facility] CPT-14922 Level 2 Est. Patient 17:13:21 CDT Alina Castaneda MD [facility] CPT-56291 Level 3 Est. Patient 14:46:15 CDT Vanessa Hickey MD [facility]-30841 Level 3 Est. Patient 09:34:56 CDT Alina Castaneda MD [facility]-10739 Level 3 Est. Patient 21:40:19 CDT [facility] CPT-39020 Level 3 Est. Patient 09:26:40 CDT Marvel Charles [facility] CPT-04421 Level 3 Est. Patient 12:36:43 CDT Vanessa Hickey MD [facility]-80385 Level 3 Est. Patient 12:57:49 CDT Vanessa Hickey MD [facility] CPT-78757 Level 3 Est. Patient 00:28:25 CDT Alina Castaneda MD [facility] CPT-11877 Level 2 Est. Patient 12:52:14 CDT Alina Castaneda MD [facility] CPT-73829 Level 3 Est. Patient 11:51:18 LEAD MATERIAL HANDLER Alina Castaneda MD [facility]-87705 Level 3 Est. Patient 10:09:22 LEAD MATERIAL HANDLER Alina Castaneda MD [facility]-49475 Level 3 Est. Patient 14:36:26 LEAD MATERIAL HANDLER [facility] [place] 2[facility] CPT-42891 Level 3 Est. Patient 13:34:47 LEAD MATERIAL HANDLER Alina Castaneda MD [facility]-21758 Level 3 Est. Patient 19:52:08 LEAD MATERIAL HANDLER Alina Castaneda MD [facility]-39378 Level 3 Est. Patient 10:01:51 LEAD MATERIAL HANDLER Marvel Araceli [facility]-20405 Level 3 Est. Patient 21:54:06 CDT Vanessa Hickey MD [facility]-01074 Level 3 Est. Patient 08:54:46 CDT Alina Castaneda MD [facility]-17552 Level 3 Est. Patient 09:32:11 CDT Marvel Charles [facility]-94250 Level 3 Est. Patient 12:02:49 CDT Alina Castaneda MD [facility]-14225 Level 3 Est. Patient 19:17:33 CDT Alina Castaneda MD [facility]-98607 Level 3 Est. Patient 13:19:10 CDT Marvel Charles [facility]-99462 Level 3 Est. Patient 08:20:05 CDT Alina Castaneda MD [facility]-38989 Level 3 Est. Patient 15:17:18 CDT Alina Castaneda MD [facility]-88912 Level 3 Est. Patient 14:25:36 LEAD MATERIAL HANDLER Brooksjohn Charles [facility]-70280 Level 3 Est. Patient 10:09:15 LEAD MATERIAL HANDLER Marvel Charles [facility]-16048 Level 3 Est. Patient 21:28:43 CDT Alina Castaneda MD [facility] [place]02319 Level 3 Est. Patient 15:20:11 CDT Marvel Araceli [facility]-29625 Level 4 Est. Patient 19:08:12 CDT Alina Castaneda MD [facility]-97370 Level 3 Est. Patient 15:06:39 [facility]-03353 Level 4 Est. Patient 17:48:15 CDT Alina Castaneda MD [facility]-62474 Level 3 Est. Patient 14:53:49 CDT Alina Castaneda MD [facility]-78685 Level 3 Est. Patient 09:35:16 CDT Alina Castaneda MD [facility]-74461 Level 3 Est. Patient 12:23:22 CDT Alina Castaneda MD [facility]-97942 Level 3 Est. Patient 16:19:15 CDT Alina Castaneda MD [facility]-36188 Level 3 Est. Patient 21:39:56 LEAD MATERIAL HANDLER Alina Castaneda MD [facility]-99315 Level 4 Est. Patient 14:12:56 LEAD MATERIAL HANDLER Alina Castaneda MD [facility]-26319 Level 2 Est. Patient 15:34:57 LEAD MATERIAL HANDLER Alina Castaneda MD [facility]-51545 Level 3 Est. Patient 12:17:04 LEAD MATERIAL HANDLER Alina Castaneda MD [facility]-29901 Level 3 Est. Patient 09:18:18 LEAD MATERIAL HANDLER Marvel Charles [facility]-04197 Level 2 Est. Patient 21:50:24 CDT Alina Castaneda MD [facility]-52301 Level 3 Est. Patient 09:17:28 CDT Marvel Araceli [facility] [place][note 2] CPT-16154 Level 4 Est. Patient 18:54:02 CDT Alina Castaneda MD [facility]-44019 Level 3 Est. Patient 10:47:10 CDT Alina Castaneda MD [facility]-83078 Level 3 Est. Patient 09:22:20 CDT Marvel Araceli [facility] [place][note 2] CPT-29694 Level 3 Est. Patient 16:39:43 CDT Brookslashondanivia Araceli [facility] [place][note 2] CPT-54893 Level 3 Est. Patient 16:05:16 CDT Alina Castaneda MD [facility] CPT-95640 Level 3 Est. Patient 00:29:15 CDT Alina Castaneda MD [facility] CPT-53335 Level 3 Est. Patient 10:49:22 LEAD MATERIAL HANDLER Brooksjohn Charles [facility] [place][note 2] CPT-72855 Level 3 Est. Patient 21:30:19 LEAD MATERIAL HANDLER Alina Castaneda MD [facility] CPT-78659 Level 4 Est. Patient 17:04:11 LEAD MATERIAL HANDLER Brooksjohn Charles [facility] [place][note 2] CPT-43747 Level 3 Est. Patient 15:34:11 LEAD MATERIAL HANDLER Marvel Charles [facility] [place][note 2] CPT-74547 Level 2 Est. Patient 12:51:58 LEAD MATERIAL HANDLER Alina Castaneda MD [facility]-45823 Level 3 Est. Patient 13:20:01 LEAD MATERIAL HANDLER Alina Castaneda MD [facility] CPT-61369 Level 3 Est. Patient 09:23:35 CDT Alina Castaneda MD [facility] Procedures Code Procedure Name Date Entry Date Standard Description CPT-18046 Bladder Scan 12:36:44 CDT CPT-58437 Bladder Scan 21:54:06 CDT CPT-G0008 Administration of Influenza Virus Vaccine 13:05:26 CDT CPT-78001 Fluzone Quadrivalent Intramuscular Suspension 0.5 ML 13: 05:26 CDT CPT-19344 Administration single or combination vaccine inc oral 11 :49:51 CDT CPT-49093 Pneumovax 11:49:51 CDT CPT-66941 Ribs unilateral 2V 12:37:22 LEAD MATERIAL HANDLER CPT-68693 Chest 2V Frontal and Lat 17:15:26 CDT CPT-97752 Abx/Therapy Injection 18:54:02 CDT CPT-J0696 Rocephin 1000 mg (Ceftriaxone) 16:00:32 CDT CPT-64125 Chest 2V Frontal and Lat 15:26:45 CDT CPT-74438 Chest 2V Frontal and Lat 10:23:27 CDT CPT-24810 Venipuncture Draw Fee 10:11:00 CDT CPT-38487 Administration single or combination vaccine inc oral 11 :56:38 CDT CPT-66333 Influenza split virus > age 3 11:56:38 CDT CPT-82090 Venipuncture Draw Fee 08:49:54 LEAD MATERIAL HANDLER CPT-89404 EKG Trac and Interp 17:54:19 LEAD MATERIAL HANDLER
--- OUTSIDE RECORDS SUMMARY | 2018-07-02 18:00 | XMS REPORT | Clinical Summary ---
Author Author Admin, TERELL Organization [employer] Address Unknown Phone Unavailable Allergies, Adverse Reactions, 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 Erazo CLINICAL RN LIAISON Benign paroxysmal positional vertigo Vertigo, benign paroxysmal position 386.11 Inactive Mima Erazo CLINICAL RN LIAISON Benign paroxysmal positional vertigo High-risk sexual behavior V69.2 Active Alina Castaneda MD PhD High-risk sexual behavior Erectile dysfunction 302.72 Active Alina Castaneda MD PhD Psychosexual dysfunction with inhibited sexual excitement Constipation 564.00 Active Alina Castaneda MD PhD Constipation, unspecified Skin lesion 709.9 Active Alina Castaneda MD PhD Unspecified disorder of skin and subcutaneous tissue Malaise and fatigue 780.79 Active Cherelle Speaks CLINICAL RN LIAISON Other malaise and fatigue Diarrhea 787.91 Active Cherelle Speaks CLINICAL RN LIAISON Diarrhea PHARYNGITIS 462 Active Cherelle Speaks CLINICAL RN LIAISON Acute pharyngitis Colitis 558.9 Active Mima Erazo CLINICAL RN LIAISON Other and unspecified noninfectious gastroenteritis and [...] PhD FH STROKE ICD-V17.1 Inactive Marvel Charles POWER TRANSFORMER ASSEMBLER FATIGUE ICD-780.79 Inactive Alina Castaneda MD PhD [...] Take one by mouth daily LURASIDONE HCL 10231371401 Active Salina Ervinford [facility] TO [facility] Active MORPHINE SULFATE 30 MG ORAL TABS by mouth twice a day MORPHINE SULFATE 78051098234 Active Salina Emely [facility] Active TRAZODONE HCL 100 MG TABS 1 every night to prevent headaches TRAZODONE HCL 73993606147 Active Gabrielle Madl EMERGENCY MEDICINE PHYSICIAN ASSISTANT Active LATUDA 60 MG ORAL TABS 1 tab daily LURASIDONE HCL 76150882318 Active Gabrielle Marquez EMERGENCY MEDICINE PHYSICIAN ASSISTANT Active CLONAZEPAM 1 MG TABS 1 pill by mouth three times daily CLONAZEPAM 52857012476 Active Gabrielle Madl EMERGENCY MEDICINE PHYSICIAN ASSISTANT Active [facility] MILK OF MAGNESIA 400 MG/5ML ORAL SUSP 30ml by mouth bid prn MAGNESIUM HYDROXIDE 98866789390 Active Mason Loredo MD Active TYLENOL 8 HOUR 650 MG ORAL CR-TABS 1 tab QID prn ACETAMINOPHEN 01561973468 Active Mason Loredo MD Active MYLANTA GAS RELIEF MAXIMUM STR 125 MG ORAL CAPS 30cc every 4 hours prn 12/01 SIMETHICONE 31916402386 Active Mason Loredo MD Active IMODIUM A-D 2 MG ORAL TABS 1 tab QID as needed LOPERAMIDE HCL 37064721954 Active Mason Loredo MD Active FLUVOXAMINE MALEATE 50 MG ORAL TABS 1 tab by mouth daily FLUVOXAMINE MALEATE 68958613135 Active Mason Loredo MD Active TRAVATAN Z 0.004 % SOLN 1 gtt each eye daily TRAVOPROST 57764786591 No Longer Active Mason Loredo MD Active LISINOPRIL 20 MG TABS 1 BID LISINOPRIL 78053319962 No Longer Active Mason Loredo MD Active LEVEMIR FLEXTOUCH 100 UNIT/ML SC SOPN 60 units SQ each evening, for diabetes INSULIN DETEMIR 63853410612 Active Desi Noyolaer Active ZOLPIDEM TARTRATE 10 MG TABS take at bedtime ZOLPIDEM TARTRATE 56960245987 No Longer Active Mason Loredo MD Active HYDROCODONE-ACETAMINOPHEN 5-325 MG TABS 2 tabs by mouth three times daily for pain HYDROCODONE-ACETAMINOPHEN 94137250950 No Longer Active Mason Loredo MD Active ZOFRAN 4 MG TABS 1 po q4hr PRN Nausea ONDANSETRON HCL 97915461789 No Longer Active Mason Loredo MD Active LOMOTIL 2.5-0.025 MG ORAL TABS take 1-2 tabs PO after each stool, no more than 8 in 24 hours DIPHENOXYLATE-ATROPINE 57694884742 No Longer Active Mason Loredo MD Active COLACE 100 MG CAPS 1 pill by mouth twice daily, for constipation DOCUSATE SODIUM 10281373098 No Longer Active Mima Erazo APRN Active FLONASE ALLERGY RELIEF 50 MCG/ACT NASAL SUSP One spray each nostril BID x 1 week then daily FLUTICASONE PROPIONATE 54542928752 Active Mima Erazo APRN Active BD PEN NEEDLE MINI U/F 31G X 5 MM MISC 4 a day INSULIN PEN NEEDLE 03610713906 Active Maliheh Ziglari POWER TRANSFORMER ASSEMBLER Active AMITIZA 24 MCG ORAL CAPS Take one capsule BID for constipation LUBIPROSTONE 94194386962 Active Mima Erazo APRN Active TRUEPLUS LANCETS 30G MISC 3 a day LANCETS 32261628060 Active Marvel Mackenzieglari POWER TRANSFORMER ASSEMBLER Active TOLTERODINE TARTRATE 2 MG TABS 1 pill twice daily, for bladder TOLTERODINE TARTRATE 49052056167 No Longer Active Vanessa Hickey MD Active AMITIZA 24 MCG ORAL CAPS Take one capsule BID for constipation. LUBIPROSTONE 47776790157 No Longer Active Vanessa Hickey MD Active FLUVOXAMINE MALEATE 100 MG ORAL TABS take one tab every AM et HS, and take 1/ 2 tab at noon FLUVOXAMINE MALEATE 77969103464 Active Grace Azam RMA Active METOPROLOL SUCCINATE 100 MG [id number] 1 by mouth daily for blood pressure METOPROLOL SUCCINATE 07998124145 No Longer Active Grace Azam RMA Active METFORMIN HCL ER 500 MG [id number] Take three tablets by mouth everyday METFORMIN HCL 77780150760 No Longer Active Grace Azam RMA Active LOVAZA 1 GM CAPS 4 daily (for triglycerides) OMEGA-3- ACID ETHYL ESTERS 69314193931 No Longer Active Grace Azam RMA Active TRAZODONE HCL 100 MG ORAL TABS 1 tab by mouth for sleep TRAZODONE HCL 14384251981 No Longer Active Grace Azam RMA Active NOVOFINE 32G X 6 MM MISC use one four times per day INSULIN PEN NEEDLE 75770653785 No Longer Active Grace Azam RMA Active BACTROBAN 2 % CREAM Apply to affected area BID for up to 10 days MUPIROCIN CALCIUM 57062905042 No Longer Active Grace Azam RMA Active KEFLEX 500 MG CAP 1 po BID x 7 days CEPHALEXIN 96570540529 No Longer Active Cherelle Avila CLINICAL RN LIAISON Active FLUVOXAMINE MALEATE 100 MG TABS Take one (1) tablet by mouth am, 1/2 at noon FLUVOXAMINE MALEATE 58690619071 No Longer Active Mima Erazo CLINICAL RN LIAISON Active CORICIDIN HBP CONGESTION/COUGH 10-200 MG ORAL CAPS Take as directed on box as needed for cold/flu symptoms DEXTROMETHORPHAN-GUAIFENESIN 48174473352 Active Cherelle Avila CLINICAL RN LIAISON Active OMEGA-3 300 MG ORAL CAPS 4 caps by mouth daily OMEGA-3 FATTY ACIDS 85239774750 Active Mima Erazo CLINICAL RN LIAISON Active FLUVOXAMINE MALEATE 100 MG ORAL TABS Take 1/2 tab at noon FLUVOXAMINE MALEATE 67477646740 No Longer Active Cherelle Avila CLINICAL RN LIAISON Active [facility] LUBRICANT EYE DROPS 0.4-0.3 % OPHTH SOLN POLYETHYL GLYCOL-PROPYL GLYCOL 41072506067 Active Mima Erazo CLINICAL RN LIAISON Active MIRALAX POWD 17g by mouth daily, for constipation POLYETHYLENE GLYCOL 3350 95581994247 Active Alina Castaneda MD PhD Active HUMALOG KWIKPEN 100 UNIT/ML SC SOPN 20 units with breakfast, 10 units with lunch, 10 units with dinner, for diabetes INSULIN LISPRO (HUMAN ) 88497812826 Active Alina Castaneda MD PhD Active TRUETEST TEST STRP check blood sugars 3x/day GLUCOSE BLOOD 29102972227 Active Mallashondaeh Ziglari POWER TRANSFORMER ASSEMBLER Active ACCU-CHEK ROSA UZMA Use device to check blood sugars BLOOD GLUCOSE MONITORING SUPPL 58906079121 No Longer Active Maliheh Ziglari POWER TRANSFORMER ASSEMBLER Active ACCU-CHEK ROSA INVITR STRP use strips with device to check blood sugars 3 times daily GLUCOSE BLOOD 09610396149 No Longer Active Maljohn Mackenzieglari POWER TRANSFORMER ASSEMBLER Active VERAPAMIL HCL ER 180 MG ORAL CR-TABS 1 pill by mouth twice daily, for migraine prevention VERAPAMIL HCL 94105857495 Active CRYSTAL Rodrigues Active CYCLOBENZAPRINE HCL 10 MG TABS 1 tablet by mouth three times daily, scheduled CYCLOBENZAPRINE HCL 85455463955 No Longer Active Alina Castaneda MD PhD Active HUMALOG 100 UNIT/ML SOLN Take 20 units with breakfast, 10u with lunch and suppetr. INSULIN LISPRO (HUMAN) 55839564186 No Longer Active Alina Castaneda MD PhD Active TRUETEST TEST STRP check sugars 4x/day GLUCOSE BLOOD 39215007031 No Longer Active Alina Castaneda MD PhD Active MORPHINE SULFATE 30 MG TABS 1 pill by mouth twice daily, for pain MORPHINE SULFATE 46020247990 No Longer Active Mason Loredo MD Active ACYCLOVIR 400 MG ORAL TABS 1 pill three times daily x 5 days, for cold sore outbreak ACYCLOVIR 43562875048 No Longer Active Alina Castaneda MD PhD Active PENICILLIN V POTASSIUM 500 MG TABS 1 pill by mouth three times daily PENICILLIN V POTASSIUM 55677242368 No Longer Active Alina Castaneda MD PhD Active UROXATRAL 10 MG [id number] Take 1 tablet by mouth daily ALFUZOSIN HCL 27371627245 No Longer Active Alina Castaneda MD PhD Active THIOTHIXENE 5 MG CAPS by mouth twice a day THIOTHIXENE 50501906869 No Longer Active Alina Castaneda MD PhD Active ZYPREXA 7.5 MG TABS 1 at HS OLANZAPINE 33989121959 No Longer Active Alina Castaneda MD PhD Active BD INSULIN SYRINGE 28G X 1/2" 1 ML MISC 1 four times per day INSULIN SYRINGE-NEEDLE U-100 84778294727 Active Marvel MENDOZAP Active DETROL LA 4 MG [id number] Take 1 tablet by mouth daily TOLTERODINE TARTRATE 22606750472 No Longer Active Alina Castaneda MD PhD Active TERESE CONTOUR TEST STRP monitor blood sugars 3x/day GLUCOSE BLOOD 40393049526 No Longer Active Alina Castaneda MD PhD Active EQL TRUETEST TEST STRP Test blood sugar TID GLUCOSE BLOOD 58042388123 No Longer Active Alina Castaneda MD PhD Active FLUTICASONE PROPIONATE 50 MCG/ACT SUSP 2 sprays each nostril qDay x 30 days FLUTICASONE PROPIONATE 93525673070 No Longer Active Alina Castaneda MD PhD Active IBUPROFEN 200 MG TABS 1 Q 6 hr. PRN IBUPROFEN 92503018970 No Longer Active Alina Castaneda MD PhD Active NIACIN ER 500 MG CR-TABS 4 qHS (for triglycerides) NIACIN 92878921875 No Longer Active Alina Castaneda MD PhD Active ALFUZOSIN HCL ER 10 MG [id number] 1 tablet daily ALFUZOSIN HCL 87544057829 Active CRYSTAL Rodrigues Active SAPHRIS 5 MG SUBL by mouth twice a day ASENAPINE MALEATE 54151255709 No Longer Active Maliheh Ziglari POWER TRANSFORMER ASSEMBLER Active ACETAMINOPHEN 500 MG TABS 2 Q 6 hr. PRN ACETAMINOPHEN 33139409487 No Longer Active Maliheh Ziglari POWER TRANSFORMER ASSEMBLER Active ORPHENADRINE CITRATE ER 100 MG [id number] 1 every 12 hr. as needed ORPHENADRINE CITRATE 38297313926 No Longer Active Alina Castaneda MD PhD Active NIACIN CR 500 MG CR-TABS 2 qHS NIACIN 71599684675 No Longer Active Alina Castaneda MD PhD Active AMOXICILLIN 500 MG CAPS 2 po BID x 10 days AMOXICILLIN 51673984883 No Longer Active Alina Castaneda MD PhD Active HYDROCODONE-ACETAMINOPHEN 7.5-325 MG TABS 1 four times a day as needed for pain HYDROCODONE-ACETAMINOPHEN 01043326581 No Longer Active Alina Castaneda MD PhD Active DOXEPIN HCL 10 MG CAPS Take 1 tablet by mouth daily DOXEPIN HCL 99099632600 No Longer Active Salina Emely RMA Active NAVANE 10 MG CAPS 1/2 tablet twice a day THIOTHIXENE No Longer Active Salina Han RMA Active CYCLOBENZAPRINE HCL 10 MG TABS 1/2 tablet by mouth every 8 hours as needed for muscle spasms CYCLOBENZAPRINE HCL 38329330332 No Longer Active Alina Castaneda MD PhD Active BACTROBAN 2 % CREAM apply to ear and nose twice daily MUPIROCIN CALCIUM 42760013388 No Longer Active Alina Castaneda MD PhD Active HYDROCODONE-ACETAMINOPHEN 5-325 MG TABS take one tablet by mouth every four hours as needed for pain HYDROCODONE-ACETAMINOPHEN 55088492233 No Longer Active Alina Castaneda MD PhD Active ZYPREXA 5 MG TABS take one tablet by mouth every evening OLANZAPINE 08450252825 No Longer Active Alina Castaneda MD PhD Active ALBUTEROL SULFATE 0.083 % NEBU SOLN one vial per nebulizer TID and PRN cough/ soa ALBUTEROL SULFATE 55928330445 No Longer Active Alina Castaneda MD PhD Active GUAIFENESIN 600 MG [id number] 1 tablet by mouth twice daily if needed for cough GUAIFENESIN 70932574130 No Longer Active Marvel Charles POWER TRANSFORMER ASSEMBLER Active AZITHROMYCIN 500 MG SOLR 1 po q day AZITHROMYCIN 60433382561 No Longer Active Alina Castaneda MD PhD Active PROMETHAZINE-CODEINE 6.25-10 MG/5ML SYRP 1 tsp po q 6 hours prn cough PROMETHAZINE-CODEINE 92086160526 No Longer Active Alina Castaneda MD PhD Active CEFDINIR 300 MG CAPS by mouth twice a day CEFDINIR 95329612724 No Longer Active Alina Castaneda MD PhD Active METFORMIN HCL 500 MG [id number] Take 3 tablets by mouth everyday METFORMIN HCL 70778280829 No Longer Active Alina Castaneda MD PhD Active LEVEMIR 100 UNIT/ML SOLN 90 units SQ qHS INSULIN DETEMIR 60120243021 No Longer Active Marvel MARROQUIN Active TOPROL XL 100 MG [id number] 1 @ HS METOPROLOL SUCCINATE 73193403774 No Longer Active Marvel MARROQUIN Active ALLOPURINOL 300 MG TABS Take one by mouth daily ALLOPURINOL 70461466616 Active Mima Erazo CLINICAL RN LIAISON Active ZYPREXA 10 MG TABS Take one by mouth daily OLANZAPINE 97856582437 No Longer Active Alina Castaneda MD PhD Active NOVOLOG 100 UNIT/ML SOLN 40 units with every meal INSULIN ASPART 12726554338 No Longer Active Alina Castaneda MD PhD Active VERAPAMIL HCL CR 120 MG TAB CR 1 qPM VERAPAMIL HCL 01635820722 No Longer Active Salina ROJAS Active ZYPREXA 15 MG TABS Take 1 tablet by mouth daily OLANZAPINE 78930680192 No Longer Active Marvel MARROQUIN Active ALBUTEROL SULFATE (2.5 MG/3ML) 0.083% NEBU 1 neb tid and prn cough ALBUTEROL SULFATE 01702142263 No Longer Active Alina Castaneda MD PhD Active LANTUS 100 UNIT/ML SOLN 60 units sq q hs INSULIN GLARGINE 40180972432 No Longer Active CRYSTAL Suarez Active ALBUTEROL SULFATE (2.5 MG/3ML) 0.083% NEBU 1 neb tid and prn cough ALBUTEROL SULFATE (2.5 MG/3ML) 0.083% NEBU 670569 ALBUTEROL SULFATE Inactive ZYPREXA 15 MG TABS Take 1 tablet by mouth daily ZYPREXA 15 MG TABS 223024 OLANZAPINE Inactive VERAPAMIL HCL CR 120 MG TAB CR 1 qPM VERAPAMIL HCL CR 120 MG TAB CR VERAPAMIL HCL Inactive ZYPREXA 10 MG TABS Take one by mouth daily ZYPREXA 10 MG TABS 759120 OLANZAPINE Inactive TOPROL XL 100 MG [id number] 1 @ HS TOPROL XL 100 MG [id number] METOPROLOL SUCCINATE Inactive LEVEMIR 100 UNIT/ML SOLN 90 units SQ qHS LEVEMIR 100 UNIT/ML SOLN INSULIN DETEMIR Inactive PROMETHAZINE-CODEINE 6.25-10 MG/5ML SYRP 1 tsp po q 6 hours prn cough PROMETHAZINE-CODEINE 6.25-10 MG/5ML SYRP 039376 PROMETHAZINE- CODEINE Inactive GUAIFENESIN 600 MG GB75P-UYR 1 tablet by mouth twice daily if needed for cough GUAIFENESIN 600 MG [id number] GUAIFENESIN Inactive ALBUTEROL SULFATE 0.083 % NEBU SOLN one vial per nebulizer TID and PRN cough/ soa ALBUTEROL SULFATE 0.083 % NEBU SOLN 098845 ALBUTEROL SULFATE Inactive ZYPREXA 5 MG TABS take one tablet by mouth every evening ZYPREXA 5 MG TABS 113257 OLANZAPINE Inactive HYDROCODONE-ACETAMINOPHEN 5-325 MG TABS take one tablet by mouth every four hours as needed for pain HYDROCODONE-ACETAMINOPHEN 5-325 MG TABS 528263 HYDROCODONE-ACETAMINOPHEN Inactive BACTROBAN 2 % CREAM apply to ear and nose twice daily BACTROBAN 2 % CREAM 094111 MUPIROCIN CALCIUM Inactive CYCLOBENZAPRINE HCL 10 MG TABS 1/2 tablet by mouth every 8 hours as needed for muscle spasms CYCLOBENZAPRINE HCL 10 MG TABS 745512 CYCLOBENZAPRINE HCL Inactive NAVANE 10 MG CAPS 1/2 tablet twice a day NAVANE 10 MG CAPS THIOTHIXENE Inactive DOXEPIN HCL 10 MG CAPS Take 1 tablet by mouth daily DOXEPIN HCL 10 MG CAPS 1267391 DOXEPIN HCL Inactive HYDROCODONE-ACETAMINOPHEN 7.5-325 MG TABS 1 four times a day as needed for pain HYDROCODONE-ACETAMINOPHEN 7.5-325 MG TABS 413199 HYDROCODONE-ACETAMINOPHEN Inactive NIACIN CR 500 MG CR-TABS 2 qHS NIACIN CR 500 MG CR- TABS NIACIN Inactive ORPHENADRINE CITRATE ER 100 MG [id number] 1 every 12 hr. as needed ORPHENADRINE CITRATE ER 100 MG [id number] ORPHENADRINE CITRATE Inactive ACETAMINOPHEN 500 MG TABS 2 Q 6 hr. PRN ACETAMINOPHEN 500 MG TABS 791703 ACETAMINOPHEN Inactive SAPHRIS 5 MG SUBL by mouth twice a day SAPHRIS 5 MG SUBL ASENAPINE MALEATE Inactive NIACIN ER 500 MG CR-TABS 4 qHS (for triglycerides) NIACIN ER 500 MG CR-TABS NIACIN Inactive IBUPROFEN 200 MG TABS 1 Q 6 hr. PRN IBUPROFEN 200 MG TABS 131549 IBUPROFEN Inactive FLUTICASONE PROPIONATE 50 MCG/ACT SUSP 2 sprays each nostril qDay x 30 days FLUTICASONE PROPIONATE 50 MCG/ACT SUSP 074378 FLUTICASONE PROPIONATE Inactive EQL TRUETEST TEST STRP Test blood sugar TID EQL TRUETEST TEST STRP GLUCOSE BLOOD Inactive TERESE CONTOUR TEST STRP monitor blood sugars 3x/day TERESE CONTOUR TEST STRP GLUCOSE BLOOD Inactive DETROL LA 4 MG [id number] Take 1 tablet by mouth daily DETROL LA 4 MG [id number] TOLTERODINE TARTRATE Inactive ZYPREXA 7.5 MG TABS 1 at HS ZYPREXA 7.5 MG TABS 769051 OLANZAPINE Inactive THIOTHIXENE 5 MG CAPS by mouth twice a day THIOTHIXENE 5 MG CAPS 895992 THIOTHIXENE Inactive UROXATRAL 10 MG [id number] Take 1 tablet by mouth daily UROXATRAL 10 MG [id number] ALFUZOSIN HCL Inactive ACYCLOVIR 400 MG ORAL TABS 1 pill three times daily x 5 days, for cold sore outbreak ACYCLOVIR 400 MG ORAL TABS 975141 ACYCLOVIR Inactive TRUETEST TEST STRP check sugars 4x/day TRUETEST TEST STRP GLUCOSE BLOOD Inactive HUMALOG 100 UNIT/ML SOLN Take 20 units with breakfast, 10u with lunch and suppetr. HUMALOG 100 UNIT/ML SOLN INSULIN LISPRO ( HUMAN) Inactive CYCLOBENZAPRINE HCL 10 MG TABS 1 tablet by mouth three times daily, scheduled CYCLOBENZAPRINE HCL 10 MG TABS 813911 CYCLOBENZAPRINE HCL Inactive ACCU-CHEK ROSA INVITR STRP use strips with device to check blood sugars 3 times daily ACCU-CHEK ROSA INVITR STRP GLUCOSE BLOOD Inactive ACCU-CHEK ROSA UZMA Use device to check blood sugars ACCU-CHEK ROSA UZMA BLOOD GLUCOSE MONITORING SUPPL Inactive FLUVOXAMINE MALEATE 100 MG ORAL TABS Take 1/2 tab at noon FLUVOXAMINE MALEATE 100 MG ORAL TABS 374408 FLUVOXAMINE MALEATE Inactive FLUVOXAMINE MALEATE 100 MG TABS Take one (1) tablet by mouth am, 1/2 at noon FLUVOXAMINE MALEATE 100 MG TABS 938817 FLUVOXAMINE MALEATE Inactive BACTROBAN 2 % CREAM Apply to affected area BID for up to 10 days BACTROBAN 2 % CREAM 926863 MUPIROCIN CALCIUM Inactive NOVOFINE 32G X 6 MM MISC use one four times per day NOVOFINE 32G X 6 MM MISC INSULIN PEN NEEDLE Inactive TRAZODONE HCL 100 MG ORAL TABS 1 tab by mouth for sleep TRAZODONE HCL 100 MG ORAL TABS 153708 TRAZODONE HCL Inactive LOVAZA 1 GM CAPS 4 daily (for triglycerides) LOVAZA 1 GM CAPS 507809 NEWTD-4-MXXX ETHYL ESTERS Inactive METFORMIN HCL ER 500 MG [id number] Take three tablets by mouth everyday METFORMIN HCL ER 500 MG [id number]-IRE METFORMIN HCL Inactive METOPROLOL SUCCINATE 100 MG [id number]-ITY 1 by mouth daily for blood pressure METOPROLOL SUCCINATE 100 MG [id number]-WPJ METOPROLOL SUCCINATE Inactive AMITIZA 24 MCG ORAL CAPS Take one capsule BID for constipation. AMITIZA 24 MCG ORAL CAPS LUBIPROSTONE Inactive TOLTERODINE TARTRATE 2 MG TABS 1 pill twice daily, for bladder TOLTERODINE TARTRATE 2 MG TABS 928459 TOLTERODINE TARTRATE Inactive COLACE 100 MG CAPS 1 pill by mouth twice daily, for constipation COLACE 100 MG CAPS 7012563 DOCUSATE SODIUM Inactive LOMOTIL 2.5-0.025 MG ORAL TABS take 1-2 tabs PO after each stool, no more than 8 in 24 hours LOMOTIL 2.5-0.025 MG ORAL TABS 1031252 DIPHENOXYLATE-ATROPINE Inactive ZOFRAN 4 MG TABS 1 po q4hr PRN Nausea ZOFRAN 4 MG TABS 719791 ONDANSETRON HCL Inactive HYDROCODONE-ACETAMINOPHEN 5-325 MG TABS 2 tabs by mouth three times daily for pain HYDROCODONE-ACETAMINOPHEN 5-325 MG TABS 647881 HYDROCODONE-ACETAMINOPHEN Inactive ZOLPIDEM TARTRATE 10 MG TABS take at bedtime ZOLPIDEM TARTRATE 10 MG TABS 906702 ZOLPIDEM TARTRATE Inactive LISINOPRIL 20 MG TABS 1 BID LISINOPRIL 20 MG TABS 661540 LISINOPRIL Inactive TRAVATAN Z 0.004 % SOLN 1 gtt each eye daily TRAVATAN Z 0.004 % SOLN TRAVOPROST Inactive CEFDINIR 300 MG CAPS by mouth twice a day CEFDINIR 300 MG CAPS 470131 CEFDINIR Inactive AZITHROMYCIN 500 MG SOLR 1 po q day AZITHROMYCIN 500 MG SOLR 97537468740 AZITHROMYCIN Inactive AMOXICILLIN 500 MG CAPS 2 po BID x 10 days AMOXICILLIN 500 MG CAPS 867391 AMOXICILLIN Inactive PENICILLIN V POTASSIUM 500 MG TABS 1 pill by mouth three times daily PENICILLIN V POTASSIUM 500 MG TABS 734778 PENICILLIN V POTASSIUM Inactive KEFLEX 500 MG CAP 1 po BID x 7 days KEFLEX 500 MG CAP 199249 CEPHALEXIN Inactive Immunizations Vaccine Administration Date Value [...] Fluvirin, Fluarix, Agriflu(>=18 yo)) Fluzone (>3 yrs.) [FTF055] Influenza, seasonal, injectable pneumococcal immunization administered Pneumovax [...] Panel - Chemistry sodium, serum 137 mmol/L 598-459 6324/10/12 potassium, serum 4.8 mmol/L 3.5-5.2 chloride, serum 102 mmol/L 98-107 carbon dioxide, venous blood 27.6 mmol/L 21.0-32.0 blood glucose 168 mg/dL 65-110 calcium, serum 9.0 mg/dL 8.5-10.1 urea nitrogen, blood 15 mg/dL 7-18 creatinine, serum 1.04 mg/dL 0.55-1.30 sodium, serum 138 mmol/L 304-191 8785/11/11 potassium, serum 4.7 mmol/L 3.5-5.2 chloride, serum [...] % 11.6-14.8 platelet count 240 10^3/MM^3 10*3/mm3 157-696 2167/11/11 leukocyte count, blood 9.6 10^3/MM^3 10*3/mm3 4.6-10.2 [...] Acid - Chemistry cholesterol, serum 187 mg/dL 911-678 1377/06/14 triglyceride, serum, fasting 246 mg/dL 30-200 [...] negative Encounters Code Encounter Date Provider Facility CPT-55556 Level 3 Est. Patient 14:34:52 CDT Vanessa Hickey MD -[id number] Level 3 Est. Patient 16:27:51 CDT Mima Erazo [facility]-64139 Level 3 Est. Patient 14:39:00 REPRODUCTIVE ENDOCRINOLOGIST Vanessa Hickey MD -[id number] Level 2 Est. Patient 18:43:34 CDT Mima Erazo [facility] CPT-16997 Level 3 Est. Patient 16:22:09 CDT Cherelle Avila [facility] CPT-96355 Level 4 Est. Patient 17:55:14 CDT Mima Erazo [facility] CPT-46228 Level 2 Est. Patient 17:13:21 CDT Alina Castaneda MD PhD [facility]-32272 Level 3 Est. Patient 14:46:15 CDT Vanessa Hickey MD -14981 Level 3 Est. Patient 09:34:56 CDT Alina Castaneda MD PhD -[id number] Level 3 Est. Patient 21:40:19 CDT Mima Erazo APRN [facility]-71719 Level 3 Est. Patient 09:26:40 CDT Marvel [facility]82474 Level 3 Est. Patient 12:36:43 CDT Vanessa Hickey MD -08795 Level 3 Est. Patient 12:57:49 CDT Vanessa Hickey MD [facility]43833 Level 3 Est. Patient 00:28:25 CDT Alina Castaneda MD [facility]18323 Level 2 Est. Patient 12:52:14 CDT Alina Castaneda MD [facility]64630 Level 3 Est. Patient 11:51:18 REPRODUCTIVE ENDOCRINOLOGIST Alina Castaneda MD [facility]40731 Level 3 Est. Patient 10:09:22 REPRODUCTIVE ENDOCRINOLOGIST Alina Castaneda MD [facility]53148 Level 3 Est. Patient 14:36:26 REPRODUCTIVE ENDOCRINOLOGIST Marvel [facility]33174 Level 3 Est. Patient 13:34:47 REPRODUCTIVE ENDOCRINOLOGIST Alina Castaneda MD [facility]30874 Level 3 Est. Patient 19:52:08 REPRODUCTIVE ENDOCRINOLOGIST Alina Castaneda MD [facility]60454 Level 3 Est. Patient 10:01:51 REPRODUCTIVE ENDOCRINOLOGIST Marvel [facility]30985 Level 3 Est. Patient 21:54:06 CDT Vanessa Hickey MD [facility]97997 Level 3 Est. Patient 08:54:46 CDT Alina Castaneda MD [facility]29688 Level 3 Est. Patient 09:32:11 CDT Marvel Charles [facility]-78945 Level 3 Est. Patient 12:02:49 CDT Alina Castaneda MD [facility]-90549 Level 3 Est. Patient 19:17:33 CDT Alina Castaneda MD [facility]27402 Level 3 Est. Patient 13:19:10 CDT Marvel Charles [facility]-26850 Level 3 Est. Patient 08:20:05 CDT Alina Castaneda MD [facility]10715 Level 3 Est. Patient 15:17:18 CDT Alina Castaneda MD [facility]54172 Level 3 Est. Patient 14:25:36 REPRODUCTIVE ENDOCRINOLOGIST Marvel Charles [facility]-18282 Level 3 Est. Patient 10:09:15 REPRODUCTIVE ENDOCRINOLOGIST Marvel Charles [facility]-35282 Level 3 Est. Patient 21:28:43 CDT Alina Castaneda MD [facility]-22632 Level 3 Est. Patient 15:20:11 [facility]-73480 Level 4 Est. Patient 19:08:12 CDT Alina Castaneda MD [facility]-15227 Level 3 Est. Patient 15:06:39 CDT Marvel Gurdeepajayestela [facility]-71351 Level 4 Est. Patient 17:48:15 CDT Alina Castaneda MD [facility]48358 Level 3 Est. Patient 14:53:49 CDT Alina Castaneda MD [facility]96013 Level 3 Est. Patient 09:35:16 CDT Alina Castaneda MD [facility] [facility]-86366 Level 3 Est. Patient 12:23:22 CDT Alina Castaneda MD [facility]-37258 Level 3 Est. Patient 16:19:15 CDT Alina Castaneda MD [facility]94729 Level 3 Est. Patient 21:39:56 REPRODUCTIVE ENDOCRINOLOGIST Alina Castaneda MD [facility]-63371 Level 4 Est. Patient 14:12:56 REPRODUCTIVE ENDOCRINOLOGIST Alina Castaneda MD [facility]04017 Level 2 Est. Patient 15:34:57 REPRODUCTIVE ENDOCRINOLOGIST Alina Castaneda MD [facility]-68662 Level 3 Est. Patient 12:17:04 REPRODUCTIVE ENDOCRINOLOGIST Alina Castaneda MD [facility]-29607 Level 3 Est. Patient 09:18:18 REPRODUCTIVE ENDOCRINOLOGIST Marvel Charles [facility]-95979 Level 2 Est. Patient 21:50:24 CDT Alina Castaneda MD [facility]-22379 Level 3 Est. Patient 09:17:28 CDT Marvel Charles [facility]-68299 Level 4 Est. Patient 18:54:02 CDT Alina Castaneda MD [facility]-87864 Level 3 Est. Patient 10:47:10 CDT Alina Castaneda MD [facility]-66011 Level 3 Est. Patient 09:22:20 CDT Marvel Charles [facility]29030 Level 3 Est. Patient 16:39:43 CDT Marvel Charles [facility]-67010 Level 3 Est. Patient 16:05:16 CDT Alina Castaneda MD [facility] CPT-56928 Level 3 Est. Patient 00:29:15 CDT Alina Castanead MD [facility] CPT-79337 Level 3 Est. Patient 10:49:22 REPRODUCTIVE ENDOCRINOLOGIST Marvel Thurstonestela [facility] CPT-52270 Level 3 Est. Patient 21:30:19 REPRODUCTIVE ENDOCRINOLOGIST Alina Castaneda MD [facility] CPT-36386 Level 4 Est. Patient 17:04:11 REPRODUCTIVE ENDOCRINOLOGIST [facility] CPT-58113 Level 3 Est. Patient 15:34:11 REPRODUCTIVE ENDOCRINOLOGIST [facility] CPT-66962 Level 2 Est. Patient 12:51:58 REPRODUCTIVE ENDOCRINOLOGIST Alina Castaneda MD [facility] CPT-64146 Level 3 Est. Patient 13:20:01 REPRODUCTIVE ENDOCRINOLOGIST Alina Castaneda MD [facility] CPT-09317 Level 3 Est. Patient 09:23:35 CDT Alina Castaneda MD [facility] Procedures Code Procedure Name Date Entry Date Standard Description CPT-TCM Transitional Care Mgmt-Moderate 10:25:31 CDT CPT-38722 Bladder Scan 14:34:53 CDT CPT-54493 Bladder Scan 14:39:01 REPRODUCTIVE ENDOCRINOLOGIST CPT-TCMM Transitional Care Mgmt-Moderate 10:30:19 REPRODUCTIVE ENDOCRINOLOGIST CPT-56963 Bladder Scan 12:36:44 CDT CPT-35531 Bladder Scan 21:54:06 CDT CPT-G0008 Administration of Influenza Virus Vaccine 13:05:26 CDT CPT-85422 Fluzone Quadrivalent Intramuscular Suspension 0.5 ML 13: 05:26 CDT CPT-80368 Administration single or combination vaccine inc oral 11 :49:51 CDT CPT-93334 Pneumovax 11:49:51 CDT CPT-44130 Ribs unilateral 2V 12:37:22 REPRODUCTIVE ENDOCRINOLOGIST CPT-15238 Chest 2V Frontal and Lat 17:15:26 CDT CPT-66104 Abx/Therapy Injection 18:54:02 CDT CPT-J0696 Rocephin 1000 mg (Ceftriaxone) 16:00:32 CDT CPT-16680 Chest 2V Frontal and Lat 15:26:45 CDT CPT-30600 Chest 2V Frontal and Lat 10:23:27 CDT CPT-73682 Venipuncture Draw Fee 10:11:00 CDT CPT-50518 Administration single or combination vaccine inc oral 11 :56:38 CDT CPT-19453 Influenza split virus > age 3 11:56:38 CDT CPT-32188 Venipuncture Draw Fee 08:49:54 REPRODUCTIVE ENDOCRINOLOGIST CPT-38552 EKG Trac and Interp 17:54:19 REPRODUCTIVE ENDOCRINOLOGIST
--- OUTSIDE RECORDS SUMMARY | 2018-07-02 18:02 | XMS REPORT | Clinical Summary ---
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 Inactive Ailna Castaneda MD PhD Hypoglycemia ICD-251.2 Inactive Alina Castaneda MD PhD Dizziness ICD-780.4 Inactive Alina Castaneda MD PhD Confusion ICD-298.9 Inactive Alina Castaneda MD PhD Medication List Medication Instructions Start Date Stop Date Generic Name NDC Status Provider Patient Instruction TRUETEST TEST STRP check blood sugars 3x/day GLUCOSE BLOOD 79946185352 Active Marvel MARROQUIN Active ACCU-CHEK ROSA UZMA Use device to check blood sugars BLOOD GLUCOSE MONITORING SUPPL 14686456955 No Longer Active Marvel MARROQUIN Active ACCU-CHEK ROSA INVITR STRP use strips with device to check blood sugars 3 times daily GLUCOSE BLOOD 64749476566 No Longer Active Marvel MARROQUIN Active VERAPAMIL HCL ER 180 MG ORAL CR-TABS 1 pill by mouth twice daily, for migraine prevention VERAPAMIL HCL 52916875329 Active Alina Castaneda MD PhD Active CYCLOBENZAPRINE HCL 10 MG TABS 1 tablet by mouth three times daily, scheduled CYCLOBENZAPRINE HCL 43983041186 No Longer Active Alina Castaneda MD PhD Active HUMALOG 100 UNIT/ML SOLN Take 20 units with breakfast, 10u with lunch and suppetr. INSULIN LISPRO (HUMAN) 91746780979 No Longer Active Alina Castaneda MD PhD Active TRUETEST TEST STRP check sugars 4x/day GLUCOSE BLOOD 89828931886 No Longer Active Alina Castaneda MD PhD Active MORPHINE SULFATE 30 MG TABS 1 pill by mouth twice daily, for pain MORPHINE SULFATE 27838823284 Active Alina Castaneda MD PhD Active ACYCLOVIR 400 MG ORAL TABS 1 pill three times daily x 5 days, for cold sore outbreak ACYCLOVIR 64492769780 No Longer Active Alina Castaneda MD PhD Active PENICILLIN V POTASSIUM 500 MG TABS 1 pill by mouth three times daily PENICILLIN V POTASSIUM 41021101838 No Longer Active Alina Castaneda MD PhD Active LATUDA 80 MG TABS 1 tab by mouth every evening LURASIDONE HCL 29646358705 Active Alina Castaneda MD PhD Active UROXATRAL 10 MG [id number]-FRA Take 1 tablet by mouth daily ALFUZOSIN HCL 94859677080 No Longer Active Alina Castaneda MD PhD Active THIOTHIXENE 5 MG CAPS by mouth twice a day THIOTHIXENE 84975157327 No Longer Active Alina Castaneda MD PhD Active ZYPREXA 7.5 MG TABS 1 at HS OLANZAPINE 72577653805 No Longer Active Alina Castaneda MD PhD Active LEVEMIR 100 UNIT/ML SOLN Take 70 u at 7-8pm INSULIN DETEMIR 48951702301 Active Maliheh Ziglari [employer] Active BD INSULIN SYRINGE 28G X 1/2" 1 ML MISC 1 four times per day INSULIN SYRINGE-NEEDLE U-100 36413989606 Active Maliheh Ziglari [employer] Active TOLTERODINE TARTRATE 2 MG TABS 1 pill twice daily, for bladder TOLTERODINE TARTRATE 33226617846 Active Alina Castaneda MD PhD Active DETROL LA 4 MG [id number] Take 1 tablet by mouth daily TOLTERODINE TARTRATE 33952083825 No Longer Active Alina Castaneda MD PhD Active HYDROCODONE-ACETAMINOPHEN 5-325 MG TABS 2 tabs by mouth three times daily as needed for pain HYDROCODONE-ACETAMINOPHEN 47882757405 Active Alina Castaneda MD PhD Active TERESE CONTOUR TEST STRP monitor blood sugars 3x/day GLUCOSE BLOOD 72744233705 No Longer Active Alina Castaneda MD PhD Active EQL TRUETEST TEST STRP Test blood sugar TID GLUCOSE BLOOD 85787876254 No Longer Active Alina Castaneda MD PhD Active FLUTICASONE PROPIONATE 50 MCG/ACT SUSP 2 sprays each nostril qDay x 30 days FLUTICASONE PROPIONATE 22424390156 No Longer Active Alina Castaneda MD PhD Active IBUPROFEN 200 MG TABS 1 Q 6 hr. PRN IBUPROFEN 58647523357 No Longer Active Alina Castaneda MD PhD Active NIACIN ER 500 MG CR-TABS 4 qHS (for triglycerides) NIACIN 72905706930 No Longer Active Alina Castaneda MD PhD Active ALFUZOSIN HCL ER 10 MG [id number]-BEV 1 tablet daily ALFUZOSIN HCL 31961553172 Active Vanessa Hickey MD Active CLONAZEPAM 1 MG TABS 1 pill by mouth three times daily CLONAZEPAM 23840620258 Active Alina Castaneda MD PhD Active LOVAZA 1 GM CAPS 4 daily (for triglycerides) [id number]-[id number] ETHYL ESTERS 60803217494 Active Alina Castaneda MD PhD Active SAPHRIS 5 MG SUBL by mouth twice a day ASENAPINE MALEATE 69884061719 No Longer Active Maljohn Mackenzieglari [employer] Active ACETAMINOPHEN 500 MG TABS 2 Q 6 hr. PRN ACETAMINOPHEN 53602318293 No Longer Active Mallashondaeh Ziglari [employer] Active ORPHENADRINE CITRATE ER 100 MG PE26E-VRF 1 every 12 hr. as needed ORPHENADRINE CITRATE 01307371634 No Longer Active Alina Castaneda MD PhD Active NIACIN CR 500 MG CR-TABS 2 qHS NIACIN 01324448360 No Longer Active Alina Castanead MD PhD Active AMOXICILLIN 500 MG CAPS 2 po BID x 10 days AMOXICILLIN 81202490814 No Longer Active Alina Castaneda MD PhD Active HYDROCODONE-ACETAMINOPHEN 7.5-325 MG TABS 1 four times a day as needed for pain HYDROCODONE-ACETAMINOPHEN 57422168408 No Longer Active Alina Castaneda MD PhD Active METFORMIN HCL ER 500 MG XX00O-DDV Take three tablets by mouth everyday METFORMIN HCL 12336245781 Active Alina Castaneda MD PhD Active DOXEPIN HCL 10 MG CAPS Take 1 tablet by mouth daily DOXEPIN HCL 67634054877 No Longer Active Salina Ervinford A Active NAVANE 10 MG CAPS 1/2 tablet twice a day THIOTHIXENE No Longer Active Salina Han A Active CYCLOBENZAPRINE HCL 10 MG TABS 1/2 tablet by mouth every 8 hours as needed for muscle spasms CYCLOBENZAPRINE HCL 88823023341 No Longer Active Alina Castaneda MD PhD Active BACTROBAN 2 % CREAM apply to ear and nose twice daily MUPIROCIN CALCIUM 51717985176 No Longer Active Alina Castaneda MD PhD Active HYDROCODONE-ACETAMINOPHEN 5-325 MG TABS take one tablet by mouth every four hours as needed for pain HYDROCODONE-ACETAMINOPHEN 79100385982 No Longer Active Alina Castaneda MD PhD Active ZOLPIDEM TARTRATE 10 MG TABS take at bedtime ZOLPIDEM TARTRATE 16364244816 Active Alina Castaneda MD PhD Active ZYPREXA 5 MG TABS take one tablet by mouth every evening OLANZAPINE 32594486526 No Longer Active Alina Castaneda MD PhD Active ALBUTEROL SULFATE 0.083 % NEBU SOLN one vial per nebulizer TID and PRN cough/ soa ALBUTEROL SULFATE 57687235368 No Longer Active Alina Castaneda MD PhD Active GUAIFENESIN 600 MG BS00G-KBC 1 tablet by mouth twice daily if needed for cough GUAIFENESIN 29852271442 No Longer Active Marvel MARROQUIN Active AZITHROMYCIN 500 MG SOLR 1 po q day AZITHROMYCIN 13005796985 No Longer Active Alina Castaneda MD PhD Active METOPROLOL SUCCINATE 100 MG YV77A-FAG 1 by mouth daily for blood pressure METOPROLOL SUCCINATE 94576156756 Active Alina Castaneda MD PhD Active PROMETHAZINE-CODEINE 6.25-10 MG/5ML SYRP 1 tsp po q 6 hours prn cough PROMETHAZINE-CODEINE 91834398163 No Longer Active Alina Castaneda MD PhD Active CEFDINIR 300 MG CAPS by mouth twice a day CEFDINIR 88961068840 No Longer Active Alina Castaneda MD PhD Active METFORMIN HCL 500 MG MQ62Y-SXY Take 3 tablets by mouth everyday METFORMIN HCL 67688183255 No Longer Active Alina Castaneda MD PhD Active LEVEMIR 100 UNIT/ML SOLN 90 units SQ qHS INSULIN DETEMIR 81496961498 No Longer Active Marvel MARROQUIN Active TOPROL XL 100 MG SA14D-DCC 1 @ HS METOPROLOL SUCCINATE 13804009845 No Longer Active Marvel MARROQUIN Active ALLOPURINOL 300 MG TABS Take one by mouth daily ALLOPURINOL 75208671112 Active Alina Castaneda MD PhD Active ZYPREXA 10 MG TABS Take one by mouth daily OLANZAPINE 50531708659 No Longer Active Alina Castaneda MD PhD Active NOVOLOG 100 UNIT/ML SOLN 40 units with every meal INSULIN ASPART 12324259013 No Longer Active Alina Castaneda MD PhD Active VERAPAMIL HCL CR 120 MG TAB CR 1 qPM VERAPAMIL HCL 12311473509 No Longer Active Salina Han RMA Active ZYPREXA 15 MG TABS Take 1 tablet by mouth daily OLANZAPINE 57564287705 No Longer Active Marvel MARROQUIN Active LISINOPRIL 20 MG TABS 1 BID LISINOPRIL 61847436542 Active Alina Castaneda MD PhD Active ALBUTEROL SULFATE (2.5 MG/3ML) 0.083% NEBU 1 neb tid and prn cough ALBUTEROL SULFATE 17355590199 No Longer Active Alina Castaneda MD PhD Active FLUVOXAMINE MALEATE 100 MG TABS Take one (1) tablet by mouth am, 1/2 at noon, 1 pm FLUVOXAMINE MALEATE 72403254561 Active Alina Castaneda MD PhD Active TRAVATAN Z 0.004 % SOLN 1 gtt each eye daily TRAVOPROST 55873859318 Active CRYSTAL Suarez Active LANTUS 100 UNIT/ML SOLN 60 units sq q hs INSULIN GLARGINE 83028511173 No Longer Active CRYSTAL Suarez Active ALBUTEROL SULFATE (2.5 MG/3ML) 0.083% NEBU 1 neb tid and prn cough ALBUTEROL SULFATE (2.5 MG/3ML) 0.083% NEBU 365327 ALBUTEROL SULFATE Inactive ZYPREXA 15 MG TABS Take 1 tablet by mouth daily ZYPREXA 15 MG TABS 120784 OLANZAPINE Inactive VERAPAMIL HCL CR 120 MG TAB CR 1 qPM VERAPAMIL HCL CR 120 MG TAB CR VERAPAMIL HCL Inactive ZYPREXA 10 MG TABS Take one by mouth daily ZYPREXA 10 MG TABS 580294 OLANZAPINE Inactive TOPROL XL 100 MG [id number] 1 @ HS TOPROL XL 100 MG CX69A-LLP METOPROLOL SUCCINATE Inactive LEVEMIR 100 UNIT/ML SOLN 90 units SQ qHS LEVEMIR 100 UNIT/ML SOLN INSULIN DETEMIR Inactive PROMETHAZINE-CODEINE 6.25-10 MG/5ML SYRP 1 tsp po q 6 hours prn cough PROMETHAZINE-CODEINE 6.25-10 MG/5ML SYRP 618210 PROMETHAZINE- CODEINE Inactive GUAIFENESIN 600 MG HJ52R-LSJ 1 tablet by mouth twice daily if needed for cough GUAIFENESIN 600 MG LB67P-DSA GUAIFENESIN Inactive ALBUTEROL SULFATE 0.083 % NEBU SOLN one vial per nebulizer TID and PRN cough/ soa ALBUTEROL SULFATE 0.083 % NEBU SOLN 154018 ALBUTEROL SULFATE Inactive ZYPREXA 5 MG TABS take one tablet by mouth every evening ZYPREXA 5 MG TABS 170611 OLANZAPINE Inactive HYDROCODONE-ACETAMINOPHEN 5-325 MG TABS take one tablet by mouth every four hours as needed for pain HYDROCODONE-ACETAMINOPHEN 5-325 MG TABS 698767 HYDROCODONE-ACETAMINOPHEN Inactive BACTROBAN 2 % CREAM apply to ear and nose twice daily BACTROBAN 2 % CREAM 112311 MUPIROCIN CALCIUM Inactive CYCLOBENZAPRINE HCL 10 MG TABS 1/2 tablet by mouth every 8 hours as needed for muscle spasms CYCLOBENZAPRINE HCL 10 MG TABS 753577 CYCLOBENZAPRINE HCL Inactive NAVANE 10 MG CAPS 1/2 tablet twice a day NAVANE 10 MG CAPS THIOTHIXENE Inactive DOXEPIN HCL 10 MG CAPS Take 1 tablet by mouth daily DOXEPIN HCL 10 MG CAPS 9416482 DOXEPIN HCL Inactive HYDROCODONE-ACETAMINOPHEN 7.5-325 MG TABS 1 four times a day as needed for pain HYDROCODONE-ACETAMINOPHEN 7.5-325 MG TABS 271894 HYDROCODONE-ACETAMINOPHEN Inactive NIACIN CR 500 MG CR-TABS 2 qHS NIACIN CR 500 MG CR- TABS NIACIN Inactive ORPHENADRINE CITRATE ER 100 MG ZV44R-FML 1 every 12 hr. as needed ORPHENADRINE CITRATE ER 100 MG RL87Q-BAM ORPHENADRINE CITRATE Inactive ACETAMINOPHEN 500 MG TABS 2 Q 6 hr. PRN ACETAMINOPHEN 500 MG TABS 835585 ACETAMINOPHEN Inactive SAPHRIS 5 MG SUBL by mouth twice a day SAPHRIS 5 MG SUBL ASENAPINE MALEATE Inactive NIACIN ER 500 MG CR-TABS 4 qHS (for triglycerides) NIACIN ER 500 MG CR-TABS NIACIN Inactive IBUPROFEN 200 MG TABS 1 Q 6 hr. PRN IBUPROFEN 200 MG TABS 702708 IBUPROFEN Inactive FLUTICASONE PROPIONATE 50 MCG/ACT SUSP 2 sprays each nostril qDay x 30 days FLUTICASONE PROPIONATE 50 MCG/ACT SUSP 098049 FLUTICASONE PROPIONATE Inactive EQL TRUETEST TEST STRP Test blood sugar TID EQL TRUETEST TEST STRP GLUCOSE BLOOD Inactive TERESE CONTOUR TEST STRP monitor blood sugars 3x/day TERESE CONTOUR TEST STRP GLUCOSE BLOOD Inactive DETROL LA 4 MG LL85Y-TDS Take 1 tablet by mouth daily DETROL LA 4 MG [id number]-OCK TOLTERODINE TARTRATE Inactive ZYPREXA 7.5 MG TABS 1 at HS ZYPREXA 7.5 MG TABS 902505 OLANZAPINE Inactive THIOTHIXENE 5 MG CAPS by mouth twice a day THIOTHIXENE 5 MG CAPS 877125 THIOTHIXENE Inactive UROXATRAL 10 MG LX31Y-TUO Take 1 tablet by mouth daily UROXATRAL 10 MG FP16F-TLZ ALFUZOSIN HCL Inactive ACYCLOVIR 400 MG ORAL TABS 1 pill three times daily x 5 days, for cold sore outbreak ACYCLOVIR 400 MG ORAL TABS 897709 ACYCLOVIR Inactive TRUETEST TEST STRP check sugars 4x/day TRUETEST TEST STRP GLUCOSE BLOOD Inactive HUMALOG 100 UNIT/ML SOLN Take 20 units with breakfast, 10u with lunch and suppetr. HUMALOG 100 UNIT/ML SOLN INSULIN LISPRO ( HUMAN) Inactive CYCLOBENZAPRINE HCL 10 MG TABS 1 tablet by mouth three times daily, scheduled CYCLOBENZAPRINE HCL 10 MG TABS 455743 CYCLOBENZAPRINE HCL Inactive ACCU-CHEK ROSA INVITR STRP use strips with device to check blood sugars 3 times daily ACCU-CHEK ROSA INVITR STRP GLUCOSE BLOOD Inactive ACCU-CHEK ROSA UZMA Use device to check blood sugars ACCU-CHEK ROSA UZMA BLOOD GLUCOSE MONITORING SUPPL Inactive CEFDINIR 300 MG CAPS by mouth twice a day CEFDINIR 300 MG CAPS 253070 CEFDINIR Inactive AZITHROMYCIN 500 MG SOLR 1 po q day AZITHROMYCIN 500 MG SOLR 121480 AZITHROMYCIN Inactive AMOXICILLIN 500 MG CAPS 2 po BID x 10 days AMOXICILLIN 500 MG CAPS 997091 AMOXICILLIN Inactive PENICILLIN V POTASSIUM 500 MG TABS 1 pill by mouth three times daily PENICILLIN V POTASSIUM 500 MG TABS 572288 PENICILLIN V POTASSIUM Inactive Immunizations Vaccine Administration [...] Fluvirin, Fluarix, Agriflu(>=18 yo)) Fluzone (>3 yrs.) [[id number]] Influenza, seasonal, injectable pneumococcal immunization administered Pneumovax [...] HGBA1C - Chemistry sodium, serum 130 mmol/L 010-084 4708/06/09 potassium, serum 4.0 mmol/L 3.5-5.2 chloride, serum 92 mmol/L 98-107 carbon dioxide, venous blood 22.1 mmol/L 21.0-32.0 blood glucose 60 mg/dL 65-110 calcium, serum 9.5 mg/dL 8.5-10.1 urea nitrogen, blood 14 mg/dL 7-18 creatinine, serum 1.30 mg/dL 0.60-1.30 hemoglobin A1C, blood, as % of total hemoglobin 6.0 % 4.3-6.0 sodium, serum 131 mmol/L 746-293 4913/12/30 potassium, serum 5.0 mmol/L 3.5-5.2 chloride, serum [...] 6.0 mg/dL 2.6-7.2 sodium, serum 130 mmol/L 653-766 9932/05/01 potassium, serum 5.2 mmol/L 3.5-5.2 chloride, serum [...] 0.40 mg/dL 0.00-1.00 cholesterol, serum 151 mg/dL 958-878 9901/05/01 triglyceride, serum, fasting 356 mg/dL 30-200 HDL [...] Panel - Chemistry sodium, serum 127 mmol/L 072-287 1454/10/27 potassium, serum 4.1 mmol/L 3.5-5.2 chloride, serum [...] mg/dL Encounters Code Encounter Date Provider Facility CPT-68939 Level 3 Est. Patient 12:57:49 CDT Vanessa Hickey MD [facility] CPT-15730 Level 3 Est. Patient 00:28:25 CDT Alina Castaneda MD PhD [facility] CPT-57797 Level 2 Est. Patient 12:52:14 CDT Alina Castaneda MD PhD [facility] CPT-20446 Level 3 Est. Patient 11:51:18 AGENT Alina Castaneda MD PhD [facility] CPT-58041 Level 3 Est. Patient 10:09:22 AGENT Alina Castaneda MD PhD [facility] CPT-03077 Level 3 Est. Patient 14:36:26 AGENT Marvel Araceli [facility]-07787 Level 3 Est. Patient 13:34:47 AGENT Alina Castaneda MD [facility]92858 Level 3 Est. Patient 19:52:08 AGENT Alina Castaneda MD [facility]67768 Level 3 Est. Patient 10:01:51 AGENT Marvel Gurdeepajayestela [facility]73868 Level 3 Est. Patient 21:54:06 CDT Vanessa Hickey MD [facility]-09192 Level 3 Est. Patient 08:54:46 CDT Alina Castaneda MD [facility]91766 Level 3 Est. Patient 09:32:11 CDT Brooksjohn Charles [facility]-78624 Level 3 Est. Patient 12:02:49 CDT Alina Castaneda MD [facility]-85123 Level 3 Est. Patient 19:17:33 CDT Alina Castaneda MD [facility]16363 Level 3 Est. Patient 13:19:10 CDT Marvel Charles [facility]-66654 Level 3 Est. Patient 08:20:05 CDT Alina Castaneda MD [facility]49055 Level 3 Est. Patient 15:17:18 CDT Alina Castaneda MD [facility]64365 Level 3 Est. Patient 14:25:36 AGENT Marvel Araceli [facility]08759 Level 3 Est. Patient 10:09:15 AGENT Marvel Araceli [facility]60794 Level 3 Est. Patient 21:28:43 CDT Alina Castaneda MD [facility]-12446 Level 3 Est. Patient 15:20:11 CDT Marvel Charles [facility]-40174 Level 4 Est. Patient 19:08:12 CDT Alina Castaneda MD [facility]-21262 Level 3 Est. Patient 15:06:39 CDT Marvel Charles [facility]-92265 Level 4 Est. Patient 17:48:15 CDT Alina Castaneda MD [facility]-56034 Level 3 Est. Patient 14:53:49 CDT Alina Castaneda MD [facility]-51847 Level 3 Est. Patient 09:35:16 CDT Alina Castaneda MD [facility]-50515 Level 3 Est. Patient 12:23:22 CDT Alina Castaneda MD [facility]-84605 Level 3 Est. Patient 16:19:15 CDT Alina Castaneda MD [facility]-90098 Level 3 Est. Patient 21:39:56 AGENT Alina Castaneda MD [facility]-88449 Level 4 Est. Patient 14:12:56 AGENT Alina Castaneda MD [facility]-16500 Level 2 Est. Patient 15:34:57 AGENT Alina Castaneda MD [facility]-72683 Level 3 Est. Patient 12:17:04 AGENT Alina Castaneda MD [facility]-84279 Level 3 Est. Patient 09:18:18 AGENT Marvel Charles [facility]-37229 Level 2 Est. Patient 21:50:24 CDT Alina Castaneda MD [facility]-93641 Level 3 Est. Patient 09:17:28 CDT Marvel Charles [facility]-31780 Level 4 Est. Patient 18:54:02 CDT Alina Castaneda MD [facility]60481 Level 3 Est. Patient 10:47:10 CDT Alina Castaneda MD [facility]95182 Level 3 Est. Patient 09:22:20 CDT Marvel Charles [facility]-86606 Level 3 Est. Patient 16:39:43 CDT Marvel Charles [facility]-07581 Level 3 Est. Patient 16:05:16 CDT Alina Castaneda MD [facility]33062 Level 3 Est. Patient 00:29:15 CDT Alina Castaneda MD [facility]93159 Level 3 Est. Patient 10:49:22 AGENT Marvel Charles [facility]-84650 Level 3 Est. Patient 21:30:19 AGENT Alina Castaneda MD [facility]-82751 Level 4 Est. Patient 17:04:11 AGENT Marvel Charles [facility]-94778 Level 3 Est. Patient 15:34:11 AGENT Marvel Charles [facility]-45150 Level 2 Est. Patient 12:51:58 AGENT Alina Castaneda MD [facility]11473 Level 3 Est. Patient 13:20:01 AGENT Alina Castaneda MD [facility]12898 Level 3 Est. Patient 09:23:35 CDT Alina Castaneda MD PhD [facility] Procedures Code Procedure Name Date Entry Date Standard Description CPT-82353 Bladder Scan 21:54:06 CDT CPT-G0008 Administration of Influenza Virus Vaccine 13:05:26 CDT CPT-86431 Fluzone Quadrivalent Intramuscular Suspension 0.5 ML 13: 05:26 CDT CPT-13964 Administration single or combination vaccine inc oral 11 :49:51 CDT CPT-90408 Pneumovax 11:49:51 CDT CPT-71787 Ribs unilateral 2V 12:37:22 AGENT CPT-94047 Chest 2V Frontal and Lat 17:15:26 CDT CPT-05639 Abx/Therapy Injection 18:54:02 CDT CPT-J0696 Rocephin 1000 mg (Ceftriaxone) 16:00:32 CDT CPT-73190 Chest 2V Frontal and Lat 15:26:45 CDT CPT-10884 Chest 2V Frontal and Lat 10:23:27 CDT CPT-89211 Venipuncture Draw Fee 10:11:00 CDT CPT-97090 Administration single or combination vaccine inc oral 11 :56:38 CDT CPT-14631 Influenza split virus > age 3 11:56:38 CDT CPT-83923 Venipuncture Draw Fee 08:49:54 AGENT CPT-63011 EKG Trac and Interp 17:54:19 AGENT
--- OUTSIDE RECORDS SUMMARY | 2018-07-02 18:03 | XMS REPORT | Clinical Summary ---
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 Erazo BAND TIER Benign paroxysmal positional vertigo Vertigo, benign paroxysmal position 386.11 Inactive Mima Erazo BAND TIER Benign paroxysmal positional vertigo High-risk sexual behavior V69.2 Active Alina Castaneda MD PhD High-risk sexual behavior Erectile dysfunction 302.72 Active Alina Castaneda MD PhD Psychosexual dysfunction with inhibited sexual excitement Constipation 564.00 Active Alina Castaneda MD PhD Constipation, unspecified Skin lesion 709.9 Active Alina Castaneda MD PhD Unspecified disorder of skin and subcutaneous tissue Malaise and fatigue 780.79 Active Cherelle Speaks BAND TIER Other malaise and fatigue Diarrhea 787.91 Active Cherelle Speaks BAND TIER Diarrhea PHARYNGITIS 462 Active Cherelle Speaks BAND TIER Acute pharyngitis Colitis 558.9 Active Mima Erazo BAND TIER Other and unspecified noninfectious gastroenteritis and colitis DIABETES, TYPE 2 ICD-250.00 Inactive Alina Castaneda MD PhD URI ICD-465.9 Inactive Alina Castaneda MD PhD HYPERTENSION ICD-401.9 Inactive Alina Castaneda MD PhD WOUND, OPEN, NOSE ICD-873.20 Inactive Alina Castaneda MD PhD FATIGUE ICD-780.79 Inactive Alina Castaneda MD PhD DIABETES MELLITUS, TYPE II, UNCONTROLLED ICD-250.02 Inactive Marvel Charles OUTBOUND SALES ADVISOR UNSPECIFIED TACHYCARDIA ICD-785.0 Inactive Alina Castaneda MD [...] LESION ICD-709.9 Inactive Alina Castaneda MD PhD RIB PAIN, RIGHT SIDED ICD-786.50 Inactive Alina Castaneda MD PhD DIABETIC HYPOGLYCEMIA, TYPE II ICD-250.80 Inactive Marvel 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 Inactive Alina Castaneda MD PhD Diabetes mellitus, type II, uncontrolled ICD-250.02 Inactive Alina Castaneda MD PhD PNEUMONIA, ORGANISM UNSPECIFIED ICD-486 Inactive Alina Castaneda MD PhD SINUSITIS, ACUTE ICD-461.9 Inactive Alina Castaneda MD PhD Dizziness ICD-780.4 Roro Castaneda MD PhD Confusion ICD-298.9 Inactive [...] MISC 4 a day INSULIN PEN NEEDLE 58729580266 Active Marvel MARROQUIN Active AMITIZA 24 MCG ORAL CAPS Take one capsule BID for constipation LUBIPROSTONE 48098081300 Active Mima Erazo APRN Active LEVEMIR FLEXTOUCH 100 UNIT/ML SC SOPN 75 units SQ each evening, for diabetes INSULIN DETEMIR 62357098660 Active CRYSTAL Rodrigues Active TRUEPLUS LANCETS 30G MISC 3 a day LANCETS 11603868267 Active Marvel MARROQUIN Active TOLTERODINE TARTRATE 2 MG TABS 1 pill twice daily, for bladder TOLTERODINE TARTRATE 33215005735 No Longer Active Vanessa Hickey MD Active AMITIZA 24 MCG ORAL CAPS Take one capsule BID for constipation. LUBIPROSTONE 22155693268 No Longer Active Vanessa Hickey MD Active LOMOTIL 2.5-0.025 MG ORAL TABS take 1-2 tabs PO after each stool, no more than 8 in 24 hours DIPHENOXYLATE-ATROPINE 55943551225 Active Grace Azam RMA Active FLUVOXAMINE MALEATE 100 MG ORAL TABS take one tab every AM et HS, and take 1/ 2 tab at noon FLUVOXAMINE MALEATE 14613399127 Active Gracekailee Nelsonb RMA Active METOPROLOL SUCCINATE 100 MG [id number] 1 by mouth daily for blood pressure METOPROLOL SUCCINATE 05782364998 No Longer Active Grace Azam RMA Active METFORMIN HCL ER 500 MG [id number] Take three tablets by mouth everyday METFORMIN HCL 36464397313 No Longer Active Grace Azam RMA Active LOVAZA 1 GM CAPS 4 daily (for triglycerides) OMEGA-3- ACID ETHYL ESTERS 25790788788 No Longer Active Grace Azam RMA Active TRAZODONE HCL 100 MG ORAL TABS 1 tab by mouth for sleep TRAZODONE HCL 58102762145 No Longer Active Gracekailee Nelsonb RMA Active NOVOFINE 32G X 6 MM MISC use one four times per day INSULIN PEN NEEDLE 34044039653 No Longer Active Grace Azam RMA Active BACTROBAN 2 % CREAM Apply to affected area BID for up to 10 days MUPIROCIN CALCIUM 25645674671 No Longer Active Grace Azam RMA Active ZOFRAN 4 MG TABS 1 po q4hr PRN Nausea ONDANSETRON HCL 18351723371 Active Salina Han RMA Active KEFLEX 500 MG CAP 1 po BID x 7 days CEPHALEXIN 95872642508 No Longer Active Cherelle Avila APRN Active FLUVOXAMINE MALEATE 100 MG TABS Take one (1) tablet by mouth am, 1/2 at noon FLUVOXAMINE MALEATE 88042420609 No Longer Active Mima Erazo APRN Active CORICIDIN HBP CONGESTION/COUGH 10-200 MG ORAL CAPS Take as directed on box as needed for cold/flu symptoms DEXTROMETHORPHAN-GUAIFENESIN 30557168013 Active Cherelle Speaks BAND TIER Active OMEGA-3 300 MG ORAL CAPS 4 caps by mouth daily OMEGA-3 FATTY ACIDS 49044009011 Active Cherelle Speaks BAND TIER Active FLUVOXAMINE MALEATE 100 MG ORAL TABS Take 1/2 tab at noon FLUVOXAMINE MALEATE 36351376577 No Longer Active Cherelle Speaks BAND TIER Active [facility] LUBRICANT EYE DROPS 0.4-0.3 % OPHTH SOLN POLYETHYL GLYCOL-PROPYL GLYCOL 29477435553 Active Mima Yoeloinaum BAND TIER Active CLONAZEPAM 1 MG TABS 1/2 pill by mouth three times daily CLONAZEPAM 16054860898 Active Alina Castaneda MD PhD Active MIRALAX POWD 17g by mouth daily, for constipation POLYETHYLENE GLYCOL 3350 18005924992 Active Alina Castaneda MD PhD Active HYDROCODONE-ACETAMINOPHEN 5-325 MG TABS 2 tabs by mouth three times daily for pain HYDROCODONE-ACETAMINOPHEN 36801681960 Active Mima Erazo BAND TIER Active HUMALOG KWIKPEN 100 UNIT/ML SC SOPN 20 units with breakfast, 10 units with lunch, 10 units with dinner, for diabetes INSULIN LISPRO (HUMAN ) 32229358021 Active Alina Castaneda MD PhD Active LATUDA 120 MG ORAL TABS 1 pill by mouth nightly LURASIDONE HCL 48841057605 Active Alina Castaneda MD PhD Active COLACE 100 MG CAPS 1 pill by mouth twice daily, for constipation DOCUSATE SODIUM 93902256861 Active Alina Castaneda MD PhD Active TRUETEST TEST STRP check blood sugars 3x/day GLUCOSE BLOOD 84427198234 Active Marvel Mackenzieglari OUTBOUND SALES ADVISOR Active ACCU-CHEK ROSA UZMA Use device to check blood sugars BLOOD GLUCOSE MONITORING SUPPL 17588916411 No Longer Active Maljohn Mackenzieglari OUTBOUND SALES ADVISOR Active ACCU-CHEK ROSA INVITR STRP use strips with device to check blood sugars 3 times daily GLUCOSE BLOOD 37527524733 No Longer Active Marvel MENDOZAP Active VERAPAMIL HCL ER 180 MG ORAL CR-TABS 1 pill by mouth twice daily, for migraine prevention VERAPAMIL HCL 30054576461 Active Alina Castaneda MD PhD Active CYCLOBENZAPRINE HCL 10 MG TABS 1 tablet by mouth three times daily, scheduled CYCLOBENZAPRINE HCL 85442048874 No Longer Active Alina Castaneda MD PhD Active HUMALOG 100 UNIT/ML SOLN Take 20 units with breakfast, 10u with lunch and suppetr. INSULIN LISPRO (HUMAN) 50451415065 No Longer Active Alina Castaneda MD PhD Active TRUETEST TEST STRP check sugars 4x/day GLUCOSE BLOOD 99617909051 No Longer Active Alina Castaneda MD PhD Active MORPHINE SULFATE 30 MG TABS 1 pill by mouth twice daily, for pain MORPHINE SULFATE 43053829823 Active Mima Erazo BAND TIER Active ACYCLOVIR 400 MG ORAL TABS 1 pill three times daily x 5 days, for cold sore outbreak ACYCLOVIR 86401600740 No Longer Active Alina Castaneda MD PhD Active PENICILLIN V POTASSIUM 500 MG TABS 1 pill by mouth three times daily PENICILLIN V POTASSIUM 54556835179 No Longer Active Alina Castaneda MD PhD Active UROXATRAL 10 MG [id number] Take 1 tablet by mouth daily ALFUZOSIN HCL 38309308969 No Longer Active Alina Castaneda MD PhD Active THIOTHIXENE 5 MG CAPS by mouth twice a day THIOTHIXENE 20134084890 No Longer Active Alina Castaneda MD PhD Active ZYPREXA 7.5 MG TABS 1 at HS OLANZAPINE 59497787473 No Longer Active Alina Castaneda MD PhD Active BD INSULIN SYRINGE 28G X 1/2" 1 ML MISC 1 four times per day INSULIN SYRINGE-NEEDLE U-100 85246510736 Active Marvel Charles OUTBOUND SALES ADVISOR Active DETROL LA 4 MG [id number]-[id number] Take 1 tablet by mouth daily TOLTERODINE TARTRATE 48907553866 No Longer Active Alina Castaneda MD PhD Active TERESE CONTOUR TEST STRP monitor blood sugars 3x/day GLUCOSE BLOOD 23301958410 No Longer Active Alina Castaneda MD PhD Active EQL TRUETEST TEST STRP Test blood sugar TID GLUCOSE BLOOD 25293439061 No Longer Active Alina Castaneda MD PhD Active FLUTICASONE PROPIONATE 50 MCG/ACT SUSP 2 sprays each nostril qDay x 30 days FLUTICASONE PROPIONATE 48866589471 No Longer Active Alina Castaneda MD PhD Active IBUPROFEN 200 MG TABS 1 Q 6 hr. PRN IBUPROFEN 19158882843 No Longer Active Alina Castaneda MD PhD Active NIACIN ER 500 MG CR-TABS 4 qHS (for triglycerides) NIACIN 88098297148 No Longer Active Alina Castaneda MD PhD Active ALFUZOSIN HCL ER 10 MG [id number] 1 tablet daily ALFUZOSIN HCL 92584543057 Active Vanessa Hickey MD Active SAPHRIS 5 MG SUBL by mouth twice a day ASENAPINE MALEATE 49992102569 No Longer Active Maliheh Ziglari OUTBOUND SALES ADVISOR Active ACETAMINOPHEN 500 MG TABS 2 Q 6 hr. PRN ACETAMINOPHEN 58963878630 No Longer Active Maliheh Ziglari OUTBOUND SALES ADVISOR Active ORPHENADRINE CITRATE ER 100 MG [id number] 1 every 12 hr. as needed ORPHENADRINE CITRATE 20160294752 No Longer Active Alina Castaneda MD PhD Active NIACIN CR 500 MG CR-TABS 2 qHS NIACIN 26184180289 No Longer Active Alina Castaneda MD PhD Active AMOXICILLIN 500 MG CAPS 2 po BID x 10 days AMOXICILLIN 53200570753 No Longer Active Alina Castaneda MD PhD Active HYDROCODONE-ACETAMINOPHEN 7.5-325 MG TABS 1 four times a day as needed for pain HYDROCODONE-ACETAMINOPHEN 61763752531 No Longer Active Alina Castaneda MD PhD Active DOXEPIN HCL 10 MG CAPS Take 1 tablet by mouth daily DOXEPIN HCL 09822383031 No Longer Active Salina Han A Active NAVANE 10 MG CAPS 1/2 tablet twice a day THIOTHIXENE No Longer Active Salina Han A Active CYCLOBENZAPRINE HCL 10 MG TABS 1/2 tablet by mouth every 8 hours as needed for muscle spasms CYCLOBENZAPRINE HCL 79256841218 No Longer Active Alina Castaneda MD PhD Active BACTROBAN 2 % CREAM apply to ear and nose twice daily MUPIROCIN CALCIUM 37489555374 No Longer Active Alina Castaneda MD PhD Active HYDROCODONE-ACETAMINOPHEN 5-325 MG TABS take one tablet by mouth every four hours as needed for pain HYDROCODONE-ACETAMINOPHEN 62569795238 No Longer Active Alina Castaneda MD PhD Active ZOLPIDEM TARTRATE 10 MG TABS take at bedtime ZOLPIDEM TARTRATE 23540443702 Active Alina Castaneda MD PhD Active ZYPREXA 5 MG TABS take one tablet by mouth every evening OLANZAPINE 55175404091 No Longer Active Alina Castaneda MD PhD Active ALBUTEROL SULFATE 0.083 % NEBU SOLN one vial per nebulizer TID and PRN cough/ soa ALBUTEROL SULFATE 60182020957 No Longer Active Alina Castaneda MD PhD Active GUAIFENESIN 600 MG [id number]-SXT 1 tablet by mouth twice daily if needed for cough GUAIFENESIN 10913332045 No Longer Active Marvel Charles OUTBOUND SALES ADVISOR Active AZITHROMYCIN 500 MG SOLR 1 po q day AZITHROMYCIN 67518156671 No Longer Active Alina Castaneda MD PhD Active PROMETHAZINE-CODEINE 6.25-10 MG/5ML SYRP 1 tsp po q 6 hours prn cough PROMETHAZINE-CODEINE 21845576431 No Longer Active Alina Castaneda MD PhD Active CEFDINIR 300 MG CAPS by mouth twice a day CEFDINIR 30856438923 No Longer Active Alina Castaneda MD PhD Active METFORMIN HCL 500 MG KL45O-DFV Take 3 tablets by mouth everyday METFORMIN HCL 17037250567 No Longer Active Alina Castaneda MD PhD Active LEVEMIR 100 UNIT/ML SOLN 90 units SQ qHS INSULIN DETEMIR 78740596187 No Longer Active Marvel MARROQUIN Active TOPROL XL 100 MG [id number] 1 @ HS METOPROLOL SUCCINATE 51507469019 No Longer Active Marvel MARROQUIN Active ALLOPURINOL 300 MG TABS Take one by mouth daily ALLOPURINOL 05656051080 Active Alina Castaneda MD PhD Active ZYPREXA 10 MG TABS Take one by mouth daily OLANZAPINE 17297478112 No Longer Active Alina Castaneda MD PhD Active NOVOLOG 100 UNIT/ML SOLN 40 units with every meal INSULIN ASPART 34217759988 No Longer Active Alina Castaneda MD PhD Active VERAPAMIL HCL CR 120 MG TAB CR 1 qPM VERAPAMIL HCL 25240556211 No Longer Active Salina Ervinamelia ROJAS Active ZYPREXA 15 MG TABS Take 1 tablet by mouth daily OLANZAPINE 38865057053 No Longer Active Marvel MARROQUIN Active LISINOPRIL 20 MG TABS 1 BID LISINOPRIL 57164608373 Active Alina Castaneda MD PhD Active ALBUTEROL SULFATE (2.5 MG/3ML) 0.083% NEBU 1 neb tid and prn cough ALBUTEROL SULFATE 91330178514 No Longer Active Alina Castaneda MD PhD Active TRAVATAN Z 0.004 % SOLN 1 gtt each eye daily TRAVOPROST 57700172052 Active CRYSTAL Suarez Active LANTUS 100 UNIT/ML SOLN 60 units sq q hs INSULIN GLARGINE 22628317083 No Longer Active CRYSTAL Suarez Active ALBUTEROL SULFATE (2.5 MG/3ML) 0.083% NEBU 1 neb tid and prn cough ALBUTEROL SULFATE (2.5 MG/3ML) 0.083% NEBU 160902 ALBUTEROL SULFATE Inactive ZYPREXA 15 MG TABS Take 1 tablet by mouth daily ZYPREXA 15 MG TABS 634152 OLANZAPINE Inactive VERAPAMIL HCL CR 120 MG TAB CR 1 qPM VERAPAMIL HCL CR 120 MG TAB CR VERAPAMIL HCL Inactive ZYPREXA 10 MG TABS Take one by mouth daily ZYPREXA 10 MG TABS 803669 OLANZAPINE Inactive TOPROL XL 100 MG [id number] 1 @ HS TOPROL XL 100 MG UP53H-BUL METOPROLOL SUCCINATE Inactive LEVEMIR 100 UNIT/ML SOLN 90 units SQ qHS LEVEMIR 100 UNIT/ML SOLN INSULIN DETEMIR Inactive PROMETHAZINE-CODEINE 6.25-10 MG/5ML SYRP 1 tsp po q 6 hours prn cough PROMETHAZINE-CODEINE 6.25-10 MG/5ML SYRP 953325 PROMETHAZINE- CODEINE Inactive GUAIFENESIN 600 MG [id number] 1 tablet by mouth twice daily if needed for cough GUAIFENESIN 600 MG [id number]-FPE GUAIFENESIN Inactive ALBUTEROL SULFATE 0.083 % NEBU SOLN one vial per nebulizer TID and PRN cough/ soa ALBUTEROL SULFATE 0.083 % NEBU SOLN 747591 ALBUTEROL SULFATE Inactive ZYPREXA 5 MG TABS take one tablet by mouth every evening ZYPREXA 5 MG TABS 211642 OLANZAPINE Inactive HYDROCODONE-ACETAMINOPHEN 5-325 MG TABS take one tablet by mouth every four hours as needed for pain HYDROCODONE-ACETAMINOPHEN 5-325 MG TABS 618638 HYDROCODONE-ACETAMINOPHEN Inactive BACTROBAN 2 % CREAM apply to ear and nose twice daily BACTROBAN 2 % CREAM 249487 MUPIROCIN CALCIUM Inactive CYCLOBENZAPRINE HCL 10 MG TABS 1/2 tablet by mouth every 8 hours as needed for muscle spasms CYCLOBENZAPRINE HCL 10 MG TABS 694480 CYCLOBENZAPRINE HCL Inactive NAVANE 10 MG CAPS 1/2 tablet twice a day NAVANE 10 MG CAPS THIOTHIXENE Inactive DOXEPIN HCL 10 MG CAPS Take 1 tablet by mouth daily DOXEPIN HCL 10 MG CAPS 4613873 DOXEPIN HCL Inactive HYDROCODONE-ACETAMINOPHEN 7.5-325 MG TABS 1 four times a day as needed for pain HYDROCODONE-ACETAMINOPHEN 7.5-325 MG TABS 347740 HYDROCODONE-ACETAMINOPHEN Inactive NIACIN CR 500 MG CR-TABS 2 qHS NIACIN CR 500 MG CR- TABS NIACIN Inactive ORPHENADRINE CITRATE ER 100 MG [id number] 1 every 12 hr. as needed ORPHENADRINE CITRATE ER 100 MG [id number]-DMQ ORPHENADRINE CITRATE Inactive ACETAMINOPHEN 500 MG TABS 2 Q 6 hr. PRN ACETAMINOPHEN 500 MG TABS 556107 ACETAMINOPHEN Inactive SAPHRIS 5 MG SUBL by mouth twice a day SAPHRIS 5 MG SUBL ASENAPINE MALEATE Inactive NIACIN ER 500 MG CR-TABS 4 qHS (for triglycerides) NIACIN ER 500 MG CR-TABS NIACIN Inactive IBUPROFEN 200 MG TABS 1 Q 6 hr. PRN IBUPROFEN 200 MG TABS 313916 IBUPROFEN Inactive FLUTICASONE PROPIONATE 50 MCG/ACT SUSP 2 sprays each nostril qDay x 30 days FLUTICASONE PROPIONATE 50 MCG/ACT SUSP 157412 FLUTICASONE PROPIONATE Inactive EQL TRUETEST TEST STRP Test blood sugar TID EQL TRUETEST TEST STRP GLUCOSE BLOOD Inactive TERESE CONTOUR TEST STRP monitor blood sugars 3x/day TERESE CONTOUR TEST STRP GLUCOSE BLOOD Inactive DETROL LA 4 MG [id number]-LBA Take 1 tablet by mouth daily DETROL LA 4 MG [id number]-ZHP TOLTERODINE TARTRATE Inactive ZYPREXA 7.5 MG TABS 1 at HS ZYPREXA 7.5 MG TABS 813830 OLANZAPINE Inactive THIOTHIXENE 5 MG CAPS by mouth twice a day THIOTHIXENE 5 MG CAPS 377157 THIOTHIXENE Inactive UROXATRAL 10 MG [id number] Take 1 tablet by mouth daily UROXATRAL 10 MG [id number]-JLY ALFUZOSIN HCL Inactive ACYCLOVIR 400 MG ORAL TABS 1 pill three times daily x 5 days, for cold sore outbreak ACYCLOVIR 400 MG ORAL TABS 773867 ACYCLOVIR Inactive TRUETEST TEST STRP check sugars 4x/day TRUETEST TEST STRP GLUCOSE BLOOD Inactive HUMALOG 100 UNIT/ML SOLN Take 20 units with breakfast, 10u with lunch and suppetr. HUMALOG 100 UNIT/ML SOLN INSULIN LISPRO ( HUMAN) Inactive CYCLOBENZAPRINE HCL 10 MG TABS 1 tablet by mouth three times daily, scheduled CYCLOBENZAPRINE HCL 10 MG TABS 130779 CYCLOBENZAPRINE HCL Inactive ACCU-CHEK ROSA INVITR STRP use strips with device to check blood sugars 3 times daily ACCU-CHEK ROSA INVITR STRP GLUCOSE BLOOD Inactive ACCU-CHEK ROSA UZMA Use device to check blood sugars ACCU-CHEK ROSA UZMA BLOOD GLUCOSE MONITORING SUPPL Inactive FLUVOXAMINE MALEATE 100 MG ORAL TABS Take 1/2 tab at noon FLUVOXAMINE MALEATE 100 MG ORAL TABS 211212 FLUVOXAMINE MALEATE Inactive FLUVOXAMINE MALEATE 100 MG TABS Take one (1) tablet by mouth am, 1/2 at noon FLUVOXAMINE MALEATE 100 MG TABS 744286 FLUVOXAMINE MALEATE Inactive BACTROBAN 2 % CREAM Apply to affected area BID for up to 10 days BACTROBAN 2 % CREAM 970314 MUPIROCIN CALCIUM Inactive NOVOFINE 32G X 6 MM MISC use one four times per day NOVOFINE 32G X 6 MM MISC INSULIN PEN NEEDLE Inactive TRAZODONE HCL 100 MG ORAL TABS 1 tab by mouth for sleep TRAZODONE HCL 100 MG ORAL TABS 067626 TRAZODONE HCL Inactive LOVAZA 1 GM CAPS 4 daily (for triglycerides) LOVAZA 1 GM CAPS 022654 [id number] ETHYL ESTERS Inactive METFORMIN HCL ER 500 MG [id number]-FIZ Take three tablets by mouth everyday METFORMIN HCL ER 500 MG [id number]-IGA METFORMIN HCL Inactive METOPROLOL SUCCINATE 100 MG TW13S-IBR 1 by mouth daily for blood pressure METOPROLOL SUCCINATE 100 MG BA63Z-ZKO METOPROLOL SUCCINATE Inactive AMITIZA 24 MCG ORAL CAPS Take one capsule BID for constipation. AMITIZA 24 MCG ORAL CAPS LUBIPROSTONE Inactive TOLTERODINE TARTRATE 2 MG TABS 1 pill twice daily, for bladder TOLTERODINE TARTRATE 2 MG TABS 749684 TOLTERODINE TARTRATE Inactive CEFDINIR 300 MG CAPS by mouth twice a day CEFDINIR 300 MG CAPS 822751 CEFDINIR Inactive AZITHROMYCIN 500 MG SOLR 1 po q day AZITHROMYCIN 500 MG SOLR 92013910075 AZITHROMYCIN Inactive AMOXICILLIN 500 MG CAPS 2 po BID x 10 days AMOXICILLIN 500 MG CAPS 221077 AMOXICILLIN Inactive PENICILLIN V POTASSIUM 500 MG TABS 1 pill by mouth three times daily PENICILLIN V POTASSIUM 500 MG TABS 951245 PENICILLIN V POTASSIUM Inactive KEFLEX 500 MG CAP 1 po BID x 7 days KEFLEX 500 MG CAP 886385 CEPHALEXIN Inactive Immunizations Vaccine Administration Date Value [...] Fluvirin, Fluarix, Agriflu(>=18 yo)) Fluzone (>3 yrs.) [[id number]] Influenza, seasonal, injectable pneumococcal immunization administered Pneumovax [...] MICROALBUMIN - Chemistry sodium, serum 137 mmol/L 511-885 2804/05/19 potassium, serum 5.2 mmol/L 3.5-5.2 chloride, serum [...] Panel - Chemistry sodium, serum 137 mmol/L 047-588 7374/10/12 potassium, serum 4.8 mmol/L 3.5-5.2 chloride, serum 102 mmol/L 98-107 carbon dioxide, venous blood 27.6 mmol/L 21.0-32.0 blood glucose 168 mg/dL 65-110 calcium, serum 9.0 mg/dL 8.5-10.1 urea nitrogen, blood 15 mg/dL 7-18 creatinine, serum 1.04 mg/dL 0.55-1.30 sodium, serum 138 mmol/L 300-536 9279/11/11 potassium, serum 4.7 mmol/L 3.5-5.2 chloride, serum 103 mmol/L 98-107 carbon dioxide, venous blood 23.3 mmol/L 21.0-32.0 blood glucose 170 mg/dL 65-110 calcium, serum 8.6 mg/dL 8.5-10.1 urea nitrogen, blood 17 mg/dL 7-18 creatinine, serum 1.51 mg/dL 0.55-1.30 Lab Report: CBC W/DIFF, Basic Metabolic Panel - Hematology erythrocyte (RBC) count 4.54 10^6/MM^3 10*6/mm3 4.69-6.13 monocytes as percent of blood leukocytes 6.5 % 1.7-9.3 hematocrit, blood 39.5 % 41.0-53.0 mean corpuscular volume, RBC 91 fL 80-97 mean corpuscular hemoglobin, RBC 31.2 pg 27.0-31.2 mean corpuscular hemoglobin concentration, RBC 34.1 G/DL % 31.8- 35.4 red blood cell distribution width 15.3 % 11.6-14.8 platelet count 252 10^3/MM^3 10*3/mm3 061-291 7854/11/11 lymphocytes as percent of blood leukocytes 12.7 % 20.5-51.1 erythrocyte (RBC) count 4.33 10^6/MM^3 10*6/mm3 4.69-6.13 hemoglobin, blood 13.5 g/dL 13.5-17.5 leukocyte count, blood 9.6 10^3/MM^3 10*3/mm3 4.6-10.2 neutrophils as percent of blood leukocytes 75.0 % 42.2-75.2 hemoglobin, blood 13.7 g/dL 13.5-17.5 hematocrit, blood 40.2 % 41.0-53.0 mean corpuscular volume, RBC 89 fL 80-97 mean corpuscular hemoglobin, RBC 30.1 pg 27.0-31.2 mean corpuscular hemoglobin concentration, RBC 34.0 G/DL % 31.8- 35.4 red blood cell distribution width 15.6 % 11.6-14.8 platelet count 240 10^3/MM^3 10*3/mm3 511-859 6141/10/12 leukocyte count, blood 5.8 10^3/MM^3 10*3/mm3 4.6-10.2 neutrophils as percent of blood leukocytes 59.5 % 42.2-75.2 monocytes as percent of blood leukocytes 8.3 % 1.7-9.3 lymphocytes as percent of blood leukocytes 26.9 % 20.5-51.1 Lab Report: Chlamydia/GC APTIMA/25402, HIV-1/2 Agn/Dominga/77358, RPR (DX) W ... - Chemistry hepatitis B surface antigen NON-REACTIVE NON-REACTIVE Lab Report: Chlamydia/GC APTIMA/55721, HIV-1/2 Agn/Dominga/35356, RPR (DX) W ... - Lab chlamydia DNA probe NOT DETECTED NOT DETECTED Lab Report: Chlamydia/GC APTIMA/29988, HIV-1/2 Agn/Dominga/75073, RPR (DX) W ... - Microbiology Neisseria gonorrhoeae DNA probe NOT DETECTED NOT DETECTED Lab Report: Chlamydia/GC APTIMA/87630, HIV-1/2 Agn/Dominga/35935, RPR (DX) W ... - Serology rapid plasma reagin antibody titer NON-REACTIVE NON-REACTIVE Lab Report: HGBA1C - Chemistry hemoglobin A1C, blood, as % of total hemoglobin 6.1 % 4.3-6.0 hemoglobin A1C, blood, as % of total hemoglobin 6.3 % 4.3-6.0 Lab Report: Lipid Panel, HEPATIC PANEL, MICROALBUMIN, CBC - Chemistry cholesterol, serum 131 mg/dL 545-806 8422/06/03 bilirubin, serum, total 0.30 mg/dL 0.00-1.00 alanine [...] Chemistry HDL cholesterol, serum 22 mg/dL 32-96 albumin/creatinine ratio, urine < 30 mg/g mg/g{creat} 0-29 uric acid, serum 4.7 mg/dL 2.6-7.2 triglyceride, serum, fasting 272 mg/dL 30-200 cholesterol, serum 142 mg/dL 992-017 8423/06/26 LDL cholesterol, serum 66 mg/dL 0-130 prostate [...] negative Encounters Code Encounter Date Provider Facility CPT-76881 Level 3 Est. Patient 14:39:00 [employer] SALES LEADER Vanessa Hickey MD [facility]-97575 Level 2 Est. Patient 18:43:34 CDT Mima Erazo [facility] [place] CPT-51511 Level 3 Est. Patient 16:22:09 CDT Cherelle Avila [facility] [place] CPT-91202 Level 4 Est. Patient 17:55:14 CDT Mima Jeffliudmila [facility] [place] CPT-97789 Level 2 Est. Patient 17:13:21 CDT Alina Castaneda MD [facility] CPT-35754 Level 3 Est. Patient 14:46:15 CDT Vanessa Hickey MD [facility]-97742 Level 3 Est. Patient 09:34:56 CDT Alina Castaneda MD [facility]49040 Level 3 Est. Patient 21:40:19 CDT Mima Erazo [facility] [place] CPT-39956 Level 3 Est. Patient 09:26:40 CDT Marvel Charles [facility]-15080 Level 3 Est. Patient 12:36:43 CDT Vanessa Hickey MD [facility]25378 Level 3 Est. Patient 12:57:49 CDT Vanessa Hickey MD [facility]09215 Level 3 Est. Patient 00:28:25 CDT Alina Castaneda MD [facility]63186 Level 2 Est. Patient 12:52:14 CDT Alina Castaneda MD [facility]31132 Level 3 Est. Patient 11:51:18 [employer] SAL[employer]IT SALES LEADER Alina Castaneda MD [facility]-22842 Level 3 Est. Patient 10:09:22 [employer] PL[employer] SALES [employer]IT SALES LEADER Alina Castaneda MD [facility]19734 Level 3 Est. Patient 14:36:26 [employer] PL[employer] SAL[employer]IT SALES LEADER Marvel [facility] [id number] Level 3 Est. Patient 13:34:47 [employer] PL[employer] SALES [employer]IT SALES LEADER Alina Castaneda MD [facility]79790 Level 3 Est. Patient 19:52:08 [employer] PL[employer] SALES [employer]IT SALES LEADER Alina Castaneda MD [facility]38361 Level 3 Est. Patient 10:01:51 [employer] PL[employer] SALES [employer]IT SALES LEADER Marvel Charles [facility]-59073 Level 3 Est. Patient 21:54:06 CDT Vanessa Hickey MD [facility]-80313 Level 3 Est. Patient 08:54:46 CDT Alina Castaneda MD [facility]02359 Level 3 Est. Patient 09:32:11 CDT Marvel [facility] [id number] Level 3 Est. Patient 12:02:49 CDT Alina Castaneda MD [facility]33579 Level 3 Est. Patient 19:17:33 CDT Alina Castaneda MD [facility]21218 Level 3 Est. Patient 13:19:10 CDT Marvel [facility] [id number] Level 3 Est. Patient 08:20:05 CDT Alina Castaneda MD [place] [address] Level 3 Est. Patient 15:17:18 CDT Alina Castaneda MD [facility]13[address] Level 3 Est. 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 Patient 10:09:15 [employer] SALES LEADER Marvel [facility]-92992 Level 3 Est. Patient 21:28:43 CDT Alina Castaneda MD [facility]-84994 Level 3 Est. Patient 15:20:11 CDT [place] [facility]-44644 Level 4 Est. Patient 19:08:12 CDT Alina Castaneda MD [facility]-94188 Level 3 Est. Patient 15:06:39 CDT [place] [facility] Level 4 Est. Patient 17:48:15 CDT Alina Castaneda MD [facility]-01857 Level 3 Est. Patient 14:53:49 CDT Alina Castaneda MD [facility]-55143 Level 3 Est. Patient 09:35:16 CDT Alina Castaneda MD [facility]-91528 Level 3 Est. Patient 12:23:22 CDT Alina Castaneda MD [facility]-27528 Level 3 Est. Patient 16:19:15 CDT Alina Castaneda MD [facility]-61726 Level 3 Est. Patient 21:39:56 [employer] SALES LEADER Alina Castaneda MD [facility]-39668 Level 4 Est. Patient 14:12:56 [employer] SALES LEADER Alina Castaneda MD [facility]-81367 Level 2 Est. Patient 15:34:57 [employer] SALES LEADER Alina Castaneda MD [facility]-25998 Level 3 Est. Patient 12:17:04 [employer] SALES LEADER Alina Castaneda MD [facility]-52223 Level 3 Est. Patient 09:18:18 [employer] SALES LEADER [place] [facility]-85744 Level 2 Est. Patient 21:50:24 CDT Alina Castaneda MD [facility]42637 Level 3 Est. Patient 09:17:28 CDT Marvel [facility]-27551 Level 4 Est. Patient 18:54:02 CDT Alina Castaneda MD [facility]27105 Level 3 Est. Patient 10:47:10 CDT Alina Castaneda MD [facility]05920 Level 3 Est. Patient 09:22:20 CDT [place] [facility]-49191 Level 3 Est. Patient 16:39:43 CDT [place] [facility]-39260 Level 3 Est. Patient 16:05:16 CDT Alina Castaneda MD [facility]12081 Level 3 Est. Patient 00:29:15 CDT Alina Castaneda MD [facility]32992 Level 3 Est. Patient 10:49:22 [employer] SALES LEADER [place] [facility] [id number] Level 3 Est. Patient 21:30:19 [employer] SALES LEADER Alina Castaneda MD [facility]34592 Level 4 Est. Patient 17:04:11 [employer] SALES LEADER Marvel [facility] [id number] Level 3 Est. Patient 15:34:11 [employer] SALES LEADER [place] [facility] [id number] Level 2 Est. Patient 12:51:58 [employer] SALES LEADER Alina Castaneda MD PhD [facility] CPT-98269 Level 3 Est. Patient 13:20:01 [employer] SALES LEADER Alina Castaneda MD PhD [facility] CPT-11496 Level 3 Est. Patient 09:23:35 CDT Alina Castaneda MD PhD [facility] Procedures Code Procedure Name Date Entry Date Standard Description CPT-90158 Bladder Scan 14:39:01 [employer] SALES LEADER CPT-TCMM Transitional Care Mgmt-Moderate 10:30:19 [employer] SALES LEADER CPT-11046 Bladder Scan 12:36:44 CDT CPT-02450 Bladder Scan 21:54:06 CDT CPT-G0008 Administration of Influenza Virus Vaccine 13:05:26 CDT CPT-28300 Fluzone Quadrivalent Intramuscular Suspension 0.5 ML 13: 05:26 CDT CPT-58970 Administration single or combination vaccine inc oral 11 :49:51 CDT CPT-96404 Pneumovax 11:49:51 CDT CPT-24856 Ribs unilateral 2V 12:37:22 [employer] SALES LEADER CPT-45931 Chest 2V Frontal and Lat 17:15:26 CDT CPT-33897 Abx/Therapy Injection 18:54:02 CDT CPT-J0696 Rocephin 1000 mg (Ceftriaxone) 16:00:32 CDT CPT-78581 Chest 2V Frontal and Lat 15:26:45 CDT CPT-08732 Chest 2V Frontal and Lat 10:23:27 CDT CPT-87398 Venipuncture Draw Fee 10:11:00 CDT CPT-68264 Administration single or combination vaccine inc oral 11 :56:38 CDT CPT-23979 Influenza split virus > age 3 11:56:38 CDT CPT-31314 Venipuncture Draw Fee 08:49:54 [employer] SALES LEADER CPT-69583 EKG Trac and Interp 17:54:19 [employer] SALES LEADER
--- OUTSIDE RECORDS SUMMARY | 2018-07-02 18:05 | XMS REPORT | Clinical Summary ---
[...] sinusitis, unspecified BRONCHITIS, ACUTE 466.0 Resolved Alina aCstaneda MD PhD Acute bronchitis PNEUMONIA, ORGANISM UNSPECIFIED [...] Lower Urinary Tract Symptoms 788.99 Active Vanessa iHckey MD Other symptoms involving urinary system Open wound of tongue and floor of mouth, uncomplicated 873.64 Resolved Alnia Castaneda MD PhD Open wound of tongue and floor of mouth, without mention of complication Chest pain, atypical 786.59 Resolved Alina Castaneda MD PhD Other chest pain Chest pain, atypical 786.59 Resolved Alina Castaneda MD PhD Other chest pain Urinary Retention 788.20 Active Vanessa Hickey MD Retention of urine, unspecified Benign paroxysmal positional vertigo 386.11 Active Mima Erazo CHANNELER Benign paroxysmal positional vertigo Vertigo, benign paroxysmal position 386.11 Inactive Mima Erazo CHANNELER Benign paroxysmal positional vertigo High-risk sexual behavior V69.2 Active Alina Castaneda MD PhD High-risk sexual behavior Erectile dysfunction 302.72 Active Alina Castaneda MD PhD Psychosexual dysfunction with inhibited sexual excitement Constipation 564.00 Active Alina Castaneda MD PhD Constipation, unspecified Skin lesion 709.9 Active Alina Castaneda MD PhD Unspecified disorder of skin and subcutaneous tissue Malaise and fatigue 780.79 Active Cherelle Speaks CHANNELER Other malaise and fatigue Diarrhea 787.91 Active Cherelle Speaks CHANNELER Diarrhea PHARYNGITIS 462 Active Cherelle Speaks CHANNELER Acute pharyngitis Colitis 558.9 Active Mima Erazo CHANNELER Other and unspecified noninfectious gastroenteritis and colitis WOUND, OPEN, NOSE ICD-873.20 Inactive Alina Castaneda MD PhD DIABETES, TYPE 2 ICD-250.00 Inactive Alina Castaneda MD PhD HYPERTENSION ICD-401.9 Inactive Alina Castaneda MD PhD URI ICD-465.9 Inactive Alina Castaneda MD PhD CHEST PAIN ICD-786.50 Inactive Alina Castaneda MD PhD FH STROKE ICD-V17.1 Inactive Marvel Charles SALES DATA ANALYST FATIGUE ICD-780.79 Inactive Alina Castaneda MD [...] x 1 week then daily FLUTICASONE PROPIONATE 51448551599 Active Mima Erazo CHANNELER Active BD PEN NEEDLE MINI U/F 31G X 5 MM MISC 4 a day INSULIN PEN NEEDLE 81958629912 Active Marvel Mackenzieglestela SALES DATA ANALYST Active AMITIZA 24 MCG ORAL CAPS Take one capsule BID for constipation LUBIPROSTONE 30829030552 Active Mima Erazo CHANNELER Active LEVEMIR FLEXTOUCH 100 UNIT/ML SC SOPN 75 units SQ each evening, for diabetes INSULIN DETEMIR 07931769908 Active CRYSTAL Rodrigues Active TRUEPLUS LANCETS 30G MISC 3 a day LANCETS 24417593792 Active Marvel MARROQUIN Active TOLTERODINE TARTRATE 2 MG TABS 1 pill twice daily, for bladder TOLTERODINE TARTRATE 65567095881 No Longer Active Vanessa Hickey MD Active AMITIZA 24 MCG ORAL CAPS Take one capsule BID for constipation. LUBIPROSTONE 65560607974 No Longer Active Vanessa Hickey MD Active LOMOTIL 2.5-0.025 MG ORAL TABS take 1-2 tabs PO after each stool, no more than 8 in 24 hours DIPHENOXYLATE-ATROPINE 15496491365 Active Grace Azam RMA Active FLUVOXAMINE MALEATE 100 MG ORAL TABS take one tab every AM et HS, and take 1/ 2 tab at noon FLUVOXAMINE MALEATE 68691278441 Active Grace Azam RMA Active METOPROLOL SUCCINATE 100 MG [id number] 1 by mouth daily for blood pressure METOPROLOL SUCCINATE 62818936894 No Longer Active Grace Azam RMA Active METFORMIN HCL ER 500 MG [id number] Take three tablets by mouth everyday METFORMIN HCL 09664354816 No Longer Active Grace Azam RMA Active LOVAZA 1 GM CAPS 4 daily (for triglycerides) OMEGA-3- ACID ETHYL ESTERS 52306752135 No Longer Active Grace Azam RMA Active TRAZODONE HCL 100 MG ORAL TABS 1 tab by mouth for sleep TRAZODONE HCL 52869869019 No Longer Active Grace Azam RMA Active NOVOFINE 32G X 6 MM MISC use one four times per day INSULIN PEN NEEDLE 49246563912 No Longer Active Grace Azam RMA Active BACTROBAN 2 % CREAM Apply to affected area BID for up to 10 days MUPIROCIN CALCIUM 52881216721 No Longer Active Grace Azam RMA Active ZOFRAN 4 MG TABS 1 po q4hr PRN Nausea ONDANSETRON HCL 96537681686 Active Salina Ervinford RMA Active KEFLEX 500 MG CAP 1 po BID x 7 days CEPHALEXIN 83533700865 No Longer Active Cherelle Avila CHANNELER Active FLUVOXAMINE MALEATE 100 MG TABS Take one (1) tablet by mouth am, 1/2 at noon FLUVOXAMINE MALEATE 89602152290 No Longer Active Mima Erazo CHANNELER Active CORICIDIN HBP CONGESTION/COUGH 10-200 MG ORAL CAPS Take as directed on box as needed for cold/flu symptoms DEXTROMETHORPHAN-GUAIFENESIN 40908775024 Active Cherelle Avila CHANNELER Active OMEGA-3 300 MG ORAL CAPS 4 caps by mouth daily OMEGA-3 FATTY ACIDS 61817766997 Active Mima Erazo CHANNELER Active FLUVOXAMINE MALEATE 100 MG ORAL TABS Take 1/2 tab at noon FLUVOXAMINE MALEATE 23307005023 No Longer Active Cherelle Avila CHANNELER Active [facility] LUBRICANT EYE DROPS 0.4-0.3 % OPHTH SOLN POLYETHYL GLYCOL-PROPYL GLYCOL 43879650439 Active Mima Erazo CHANNELER Active CLONAZEPAM 1 MG TABS 1/2 pill by mouth three times daily CLONAZEPAM 83757119774 Active Alina Castaneda MD PhD Active MIRALAX POWD 17g by mouth daily, for constipation POLYETHYLENE GLYCOL 3350 64721338877 Active Alina Castaneda MD PhD Active HYDROCODONE-ACETAMINOPHEN 5-325 MG TABS 2 tabs by mouth three times daily for pain HYDROCODONE-ACETAMINOPHEN 66732462630 Active Mima Erazo CHANNELER Active HUMALOG KWIKPEN 100 UNIT/ML SC SOPN 20 units with breakfast, 10 units with lunch, 10 units with dinner, for diabetes INSULIN LISPRO (HUMAN ) 63848431435 Active Alina Castaneda MD PhD Active LATUDA 120 MG ORAL TABS 1 pill by mouth nightly LURASIDONE HCL 73557617776 Active Alina Castaneda MD PhD Active COLACE 100 MG CAPS 1 pill by mouth twice daily, for constipation DOCUSATE SODIUM 43295823418 Active Alina Castaneda MD PhD Active TRUETEST TEST STRP check blood sugars 3x/day GLUCOSE BLOOD 51838603029 Active Marvel MARROQUIN Active ACCU-CHEK ROSA UZMA Use device to check blood sugars BLOOD GLUCOSE MONITORING SUPPL 12777651744 No Longer Active Marvel MARROQUIN Active ACCU-CHEK ROSA INVITR STRP use strips with device to check blood sugars 3 times daily GLUCOSE BLOOD 61344351962 No Longer Active Marvel MARROQUIN Active VERAPAMIL HCL ER 180 MG ORAL CR-TABS 1 pill by mouth twice daily, for migraine prevention VERAPAMIL HCL 26788435628 Active Alina Castaneda MD PhD Active CYCLOBENZAPRINE HCL 10 MG TABS 1 tablet by mouth three times daily, scheduled CYCLOBENZAPRINE HCL 69863375137 No Longer Active Alina Castaneda MD PhD Active HUMALOG 100 UNIT/ML SOLN Take 20 units with breakfast, 10u with lunch and suppetr. INSULIN LISPRO (HUMAN) 60331038210 No Longer Active Alina Castaneda MD PhD Active TRUETEST TEST STRP check sugars 4x/day GLUCOSE BLOOD 26455228254 No Longer Active Alina Castaneda MD PhD Active MORPHINE SULFATE 30 MG TABS 1 pill by mouth twice daily, for pain MORPHINE SULFATE 61119588542 Active Mima Erazo CHANNELER Active ACYCLOVIR 400 MG ORAL TABS 1 pill three times daily x 5 days, for cold sore outbreak ACYCLOVIR 09296397278 No Longer Active Alina Castaneda MD PhD Active PENICILLIN V POTASSIUM 500 MG TABS 1 pill by mouth three times daily PENICILLIN V POTASSIUM 38463459007 No Longer Active Alina Castaneda MD PhD Active UROXATRAL 10 MG [id number]-[id number] Take 1 tablet by mouth daily ALFUZOSIN HCL 50545538916 No Longer Active lAina Castaneda MD PhD Active THIOTHIXENE 5 MG CAPS by mouth twice a day THIOTHIXENE 74761102921 No Longer Active Alina Castaneda MD PhD Active ZYPREXA 7.5 MG TABS 1 at HS OLANZAPINE 94424488496 No Longer Active Alina Castaneda MD PhD Active BD INSULIN SYRINGE 28G X 1/2" 1 ML MISC 1 four times per day INSULIN SYRINGE-NEEDLE U-100 47029379677 Active Marvel MARROQUIN Active DETROL LA 4 MG [id number] Take 1 tablet by mouth daily TOLTERODINE TARTRATE 06313987070 No Longer Active Alina Castaneda MD PhD Active TERESE CONTOUR TEST STRP monitor blood sugars 3x/day GLUCOSE BLOOD 50561492254 No Longer Active Alina Castaneda MD PhD Active EQL TRUETEST TEST STRP Test blood sugar TID GLUCOSE BLOOD 86166389624 No Longer Active Alina Castaneda MD PhD Active FLUTICASONE PROPIONATE 50 MCG/ACT SUSP 2 sprays each nostril qDay x 30 days FLUTICASONE PROPIONATE 99946329702 No Longer Active Alina Castaneda MD PhD Active IBUPROFEN 200 MG TABS 1 Q 6 hr. PRN IBUPROFEN 50037820054 No Longer Active Alina Castanead MD PhD Active NIACIN ER 500 MG CR-TABS 4 qHS (for triglycerides) NIACIN 43020779314 No Longer Active Alina Castaneda MD PhD Active ALFUZOSIN HCL ER 10 MG [id number] 1 tablet daily ALFUZOSIN HCL 27366166490 Active Vanessa Hickey MD Active SAPHRIS 5 MG SUBL by mouth twice a day ASENAPINE MALEATE 73830900030 No Longer Active Marvel MARROQUIN Active ACETAMINOPHEN 500 MG TABS 2 Q 6 hr. PRN ACETAMINOPHEN 99911765126 No Longer Active Marvel MARROQUIN Active ORPHENADRINE CITRATE ER 100 MG [id number] 1 every 12 hr. as needed ORPHENADRINE CITRATE 93181329177 No Longer Active Alina Castaneda MD PhD Active NIACIN CR 500 MG CR-TABS 2 qHS NIACIN 42959808250 No Longer Active Alina Castaneda MD PhD Active AMOXICILLIN 500 MG CAPS 2 po BID x 10 days AMOXICILLIN 60192586691 No Longer Active Alina Castaneda MD PhD Active HYDROCODONE-ACETAMINOPHEN 7.5-325 MG TABS 1 four times a day as needed for pain HYDROCODONE-ACETAMINOPHEN 83928727647 No Longer Active Alina Castaneda MD PhD Active DOXEPIN HCL 10 MG CAPS Take 1 tablet by mouth daily DOXEPIN HCL 45315300711 No Longer Active Salina Han A Active NAVANE 10 MG CAPS 1/2 tablet twice a day THIOTHIXENE No Longer Active Salina Han A Active CYCLOBENZAPRINE HCL 10 MG TABS 1/2 tablet by mouth every 8 hours as needed for muscle spasms CYCLOBENZAPRINE HCL 69067854839 No Longer Active Alina Castaneda MD PhD Active BACTROBAN 2 % CREAM apply to ear and nose twice daily MUPIROCIN CALCIUM 94165865057 No Longer Active Alina Castaneda MD PhD Active HYDROCODONE-ACETAMINOPHEN 5-325 MG TABS take one tablet by mouth every four hours as needed for pain HYDROCODONE-ACETAMINOPHEN 64193574725 No Longer Active Alina Castaneda MD PhD Active ZOLPIDEM TARTRATE 10 MG TABS take at bedtime ZOLPIDEM TARTRATE 56787534559 Active Alina Castaneda MD PhD Active ZYPREXA 5 MG TABS take one tablet by mouth every evening OLANZAPINE 75154339038 No Longer Active Alina Castaneda MD PhD Active ALBUTEROL SULFATE 0.083 % NEBU SOLN one vial per nebulizer TID and PRN cough/ soa ALBUTEROL SULFATE 25838624327 No Longer Active Alina Castaneda MD PhD Active GUAIFENESIN 600 MG GL75Q-JTN 1 tablet by mouth twice daily if needed for cough GUAIFENESIN 99675220773 No Longer Active Marvel MARROQUIN Active AZITHROMYCIN 500 MG SOLR 1 po q day AZITHROMYCIN 29559235201 No Longer Active Alina Castaneda MD PhD Active PROMETHAZINE-CODEINE 6.25-10 MG/5ML SYRP 1 tsp po q 6 hours prn cough PROMETHAZINE-CODEINE 80065766221 No Longer Active Alina Castaneda MD PhD Active CEFDINIR 300 MG CAPS by mouth twice a day CEFDINIR 96887590581 No Longer Active Alina Castaneda MD PhD Active METFORMIN HCL 500 MG [id number] Take 3 tablets by mouth everyday METFORMIN HCL 23132611515 No Longer Active Alina Castaneda MD PhD Active LEVEMIR 100 UNIT/ML SOLN 90 units SQ qHS INSULIN DETEMIR 47541020143 No Longer Active Marvel MARROQUIN Active TOPROL XL 100 MG [id number]-WVP 1 @ HS METOPROLOL SUCCINATE 96954073597 No Longer Active Marvel MARROQUIN Active ALLOPURINOL 300 MG TABS Take one by mouth daily ALLOPURINOL 29723309734 Active Alina Castaneda MD PhD Active ZYPREXA 10 MG TABS Take one by mouth daily OLANZAPINE 37747986171 No Longer Active Alina Castaneda MD PhD Active NOVOLOG 100 UNIT/ML SOLN 40 units with every meal INSULIN ASPART 48765116279 No Longer Active Alina Castaneda MD PhD Active VERAPAMIL HCL CR 120 MG TAB CR 1 qPM VERAPAMIL HCL 93759585102 No Longer Active Salina Emely ROJAS Active ZYPREXA 15 MG TABS Take 1 tablet by mouth daily OLANZAPINE 09797073848 No Longer Active Marvel MARROQUIN Active LISINOPRIL 20 MG TABS 1 BID LISINOPRIL 60501337994 Active Alina Castaneda MD PhD Active ALBUTEROL SULFATE (2.5 MG/3ML) 0.083% NEBU 1 neb tid and prn cough ALBUTEROL SULFATE 67315054359 No Longer Active Alina Castaneda MD PhD Active TRAVATAN Z 0.004 % SOLN 1 gtt each eye daily TRAVOPROST 03183015719 Active CRYSTAL Suarez Active LANTUS 100 UNIT/ML SOLN 60 units sq q hs INSULIN GLARGINE 34684654281 No Longer Active CRYSTAL Suarez Active ALBUTEROL SULFATE (2.5 MG/3ML) 0.083% NEBU 1 neb tid and prn cough ALBUTEROL SULFATE (2.5 MG/3ML) 0.083% NEBU 389341 ALBUTEROL SULFATE Inactive ZYPREXA 15 MG TABS Take 1 tablet by mouth daily ZYPREXA 15 MG TABS 434883 OLANZAPINE Inactive VERAPAMIL HCL CR 120 MG TAB CR 1 qPM VERAPAMIL HCL CR 120 MG TAB CR VERAPAMIL HCL Inactive ZYPREXA 10 MG TABS Take one by mouth daily ZYPREXA 10 MG TABS 314648 OLANZAPINE Inactive TOPROL XL 100 MG [id number] 1 @ HS TOPROL XL 100 MG [id number] METOPROLOL SUCCINATE Inactive LEVEMIR 100 UNIT/ML SOLN 90 units SQ qHS LEVEMIR 100 UNIT/ML SOLN INSULIN DETEMIR Inactive PROMETHAZINE-CODEINE 6.25-10 MG/5ML SYRP 1 tsp po q 6 hours prn cough PROMETHAZINE-CODEINE 6.25-10 MG/5ML SYRP 817893 PROMETHAZINE- CODEINE Inactive GUAIFENESIN 600 MG [id number] 1 tablet by mouth twice daily if needed for cough GUAIFENESIN 600 MG [id number] GUAIFENESIN Inactive ALBUTEROL SULFATE 0.083 % NEBU SOLN one vial per nebulizer TID and PRN cough/ soa ALBUTEROL SULFATE 0.083 % NEBU SOLN 221373 ALBUTEROL SULFATE Inactive ZYPREXA 5 MG TABS take one tablet by mouth every evening ZYPREXA 5 MG TABS 779173 OLANZAPINE Inactive HYDROCODONE-ACETAMINOPHEN 5-325 MG TABS take one tablet by mouth every four hours as needed for pain HYDROCODONE-ACETAMINOPHEN 5-325 MG TABS 382370 HYDROCODONE-ACETAMINOPHEN Inactive BACTROBAN 2 % CREAM apply to ear and nose twice daily BACTROBAN 2 % CREAM 021894 MUPIROCIN CALCIUM Inactive CYCLOBENZAPRINE HCL 10 MG TABS 1/2 tablet by mouth every 8 hours as needed for muscle spasms CYCLOBENZAPRINE HCL 10 MG TABS 037527 CYCLOBENZAPRINE HCL Inactive NAVANE 10 MG CAPS 1/2 tablet twice a day NAVANE 10 MG CAPS THIOTHIXENE Inactive DOXEPIN HCL 10 MG CAPS Take 1 tablet by mouth daily DOXEPIN HCL 10 MG CAPS 5403718 DOXEPIN HCL Inactive HYDROCODONE-ACETAMINOPHEN 7.5-325 MG TABS 1 four times a day as needed for pain HYDROCODONE-ACETAMINOPHEN 7.5-325 MG TABS 599952 HYDROCODONE-ACETAMINOPHEN Inactive NIACIN CR 500 MG CR-TABS 2 qHS NIACIN CR 500 MG CR- TABS NIACIN Inactive ORPHENADRINE CITRATE ER 100 MG [id number] 1 every 12 hr. as needed ORPHENADRINE CITRATE ER 100 MG [id number]-[id number] ORPHENADRINE CITRATE Inactive ACETAMINOPHEN 500 MG TABS 2 Q 6 hr. PRN ACETAMINOPHEN 500 MG TABS 388363 ACETAMINOPHEN Inactive SAPHRIS 5 MG SUBL by mouth twice a day SAPHRIS 5 MG SUBL ASENAPINE MALEATE Inactive NIACIN ER 500 MG CR-TABS 4 qHS (for triglycerides) NIACIN ER 500 MG CR-TABS NIACIN Inactive IBUPROFEN 200 MG TABS 1 Q 6 hr. PRN IBUPROFEN 200 MG TABS 090055 IBUPROFEN Inactive FLUTICASONE PROPIONATE 50 MCG/ACT SUSP 2 sprays each nostril qDay x 30 days FLUTICASONE PROPIONATE 50 MCG/ACT SUSP 438818 FLUTICASONE PROPIONATE Inactive EQL TRUETEST TEST STRP Test blood sugar TID EQL TRUETEST TEST STRP GLUCOSE BLOOD Inactive TERESE CONTOUR TEST STRP monitor blood sugars 3x/day TERESE CONTOUR TEST STRP GLUCOSE BLOOD Inactive DETROL LA 4 MG [id number] Take 1 tablet by mouth daily DETROL LA 4 MG [id number]-CEJ TOLTERODINE TARTRATE Inactive ZYPREXA 7.5 MG TABS 1 at HS ZYPREXA 7.5 MG TABS 233300 OLANZAPINE Inactive THIOTHIXENE 5 MG CAPS by mouth twice a day THIOTHIXENE 5 MG CAPS 106212 THIOTHIXENE Inactive UROXATRAL 10 MG [id number] Take 1 tablet by mouth daily UROXATRAL 10 MG [id number]-[id number] ALFUZOSIN HCL Inactive ACYCLOVIR 400 MG ORAL TABS 1 pill three times daily x 5 days, for cold sore outbreak ACYCLOVIR 400 MG ORAL TABS 885775 ACYCLOVIR Inactive TRUETEST TEST STRP check sugars 4x/day TRUETEST TEST STRP GLUCOSE BLOOD Inactive HUMALOG 100 UNIT/ML SOLN Take 20 units with breakfast, 10u with lunch and suppetr. HUMALOG 100 UNIT/ML SOLN INSULIN LISPRO ( HUMAN) Inactive CYCLOBENZAPRINE HCL 10 MG TABS 1 tablet by mouth three times daily, scheduled CYCLOBENZAPRINE HCL 10 MG TABS 143612 CYCLOBENZAPRINE HCL Inactive ACCU-CHEK ROSA INVITR STRP use strips with device to check blood sugars 3 times daily ACCU-CHEK ROSA INVITR STRP GLUCOSE BLOOD Inactive ACCU-CHEK ROSA UZMA Use device to check blood sugars ACCU-CHEK ROSA UZMA BLOOD GLUCOSE MONITORING SUPPL Inactive FLUVOXAMINE MALEATE 100 MG ORAL TABS Take 1/2 tab at noon FLUVOXAMINE MALEATE 100 MG ORAL TABS 664164 FLUVOXAMINE MALEATE Inactive FLUVOXAMINE MALEATE 100 MG TABS Take one (1) tablet by mouth am, 1/2 at noon FLUVOXAMINE MALEATE 100 MG TABS 191156 FLUVOXAMINE MALEATE Inactive BACTROBAN 2 % CREAM Apply to affected area BID for up to 10 days BACTROBAN 2 % CREAM 132214 MUPIROCIN CALCIUM Inactive NOVOFINE 32G X 6 MM MISC use one four times per day NOVOFINE 32G X 6 MM MISC INSULIN PEN NEEDLE Inactive TRAZODONE HCL 100 MG ORAL TABS 1 tab by mouth for sleep TRAZODONE HCL 100 MG ORAL TABS 850575 TRAZODONE HCL Inactive LOVAZA 1 GM CAPS 4 daily (for triglycerides) LOVAZA 1 GM CAPS 652837 [id number]-9-NVIC ETHYL ESTERS Inactive METFORMIN HCL ER 500 MG [id number] Take three tablets by mouth everyday METFORMIN HCL ER 500 MG [id number] METFORMIN HCL Inactive METOPROLOL SUCCINATE 100 MG PH08I-ZRZ 1 by mouth daily for blood pressure METOPROLOL SUCCINATE 100 MG [id number]-BEI METOPROLOL SUCCINATE Inactive AMITIZA 24 MCG ORAL CAPS Take one capsule BID for constipation. AMITIZA 24 MCG ORAL CAPS LUBIPROSTONE Inactive TOLTERODINE TARTRATE 2 MG TABS 1 pill twice daily, for bladder TOLTERODINE TARTRATE 2 MG TABS 431015 TOLTERODINE TARTRATE Inactive CEFDINIR 300 MG CAPS by mouth twice a day CEFDINIR 300 MG CAPS 989024 CEFDINIR Inactive AZITHROMYCIN 500 MG SOLR 1 po q day AZITHROMYCIN 500 MG SOLR 62239276559 AZITHROMYCIN Inactive AMOXICILLIN 500 MG CAPS 2 po BID x 10 days AMOXICILLIN 500 MG CAPS 395819 AMOXICILLIN Inactive PENICILLIN V POTASSIUM 500 MG TABS 1 pill by mouth three times daily PENICILLIN V POTASSIUM 500 MG TABS 321567 PENICILLIN V POTASSIUM Inactive KEFLEX 500 MG CAP 1 po BID x 7 days KEFLEX 500 MG CAP 144074 CEPHALEXIN Inactive Immunizations Vaccine Administration Date Value [...] Fluvirin, Fluarix, Agriflu(>=18 yo)) Fluzone (>3 yrs.) [[id number]] Influenza, seasonal, injectable pneumococcal immunization administered Pneumovax [...] MICROALBUMIN - Chemistry sodium, serum 137 mmol/L 507-603 1873/05/19 potassium, serum 5.2 mmol/L 3.5-5.2 chloride, serum [...] Panel - Chemistry sodium, serum 137 mmol/L 450-384 4859/10/12 potassium, serum 4.8 mmol/L 3.5-5.2 chloride, serum 102 mmol/L 98-107 carbon dioxide, venous blood 27.6 mmol/L 21.0-32.0 blood glucose 168 mg/dL 65-110 calcium, serum 9.0 mg/dL 8.5-10.1 urea nitrogen, blood 15 mg/dL 7-18 creatinine, serum 1.04 mg/dL 0.55-1.30 sodium, serum 138 mmol/L 637-691 0018/11/11 potassium, serum 4.7 mmol/L 3.5-5.2 chloride, serum [...] % 11.6-14.8 platelet count 240 10^3/MM^3 10*3/mm3 178-671 1795/11/11 leukocyte count, blood 9.6 10^3/MM^3 10*3/mm3 4.6-10.2 [...] 252 10^3/MM^3 10*3/mm3 142-424 Lab Report: Chlamydia/GC APTIMA/80603, HIV-1/2 Agn/Dominga/80078, RPR (DX) W ... - Chemistry hepatitis B surface antigen NON-REACTIVE NON-REACTIVE Lab Report: Chlamydia/GC APTIMA/86967, HIV-1/2 Agn/Dominga/48059, RPR (DX) W ... - Lab chlamydia DNA probe NOT DETECTED NOT DETECTED Lab Report: Chlamydia/GC APTIMA/67861, HIV-1/2 Agn/Dominga/64347, RPR (DX) W ... - Microbiology Neisseria gonorrhoeae DNA probe NOT DETECTED NOT DETECTED Lab Report: Chlamydia/GC APTIMA/85876, HIV-1/2 Agn/Dominga/67724, RPR (DX) W ... - Serology rapid plasma reagin antibody titer NON-REACTIVE NON-REACTIVE Lab Report: HGBA1C - Chemistry hemoglobin A1C, blood, as % of total hemoglobin 6.1 % 4.3-6.0 hemoglobin A1C, blood, as % of total hemoglobin 6.3 % 4.3-6.0 Lab Report: Lipid Panel, HEPATIC PANEL, MICROALBUMIN, CBC - Chemistry albumin/creatinine ratio, urine < 30 mg/g mg/g{creat} 0-29 cholesterol, serum 131 mg/dL 377-902 3734/06/03 triglyceride, serum, fasting 383 mg/dL 30-200 HDL [...] Acid - Chemistry cholesterol, serum 142 mg/dL 928-831 3050/06/26 triglyceride, serum, fasting 272 mg/dL 30-200 HDL [...] Code Encounter Date Provider Facility [facility]-94510 Level 3 Est. Patient 14:39:00 S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 Vanessa Hickey MD [facility]-68330 Level 2 Est. Patient 18:43:34 CDT Mima Erazo [facility]-56846 Level 3 Est. Patient 16:22:09 CDT Cherelle Avila [facility]-85591 Level 4 Est. Patient 17:55:14 CDT Mima Erazo [facility] CPT-26744 Level 2 Est. Patient 17:13:21 CDT Alina Castaneda MD PhD [facility]-52728 Level 3 Est. Patient 14:46:15 CDT Vanessa Hickey MD [facility]30391 Level 3 Est. Patient 09:34:56 CDT Alina Castaneda MD PhD [facility]26281 Level 3 Est. Patient 21:40:19 CDT Mima Erazo [facility]-05436 Level 3 Est. Patient 09:26:40 CDT Marvel Charles [facility]-67781 Level 3 Est. Patient 12:36:43 CDT Vanessa Hickey MD [facility]37837 Level 3 Est. Patient 12:57:49 CDT Vanessa Hickey MD [facility]73477 Level 3 Est. Patient 00:28:25 CDT Alina Castaneda MD [facility]-78796 Level 2 Est. Patient 12:52:14 CDT Alina Castaneda MD [facility]-19214 Level 3 Est. Patient 11:51:18 S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 Alina Castaneda MD [facility]-57973 Level 3 Est. Patient 10:09:22 S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 Alina Castaneda MD [facility]-43710 Level 3 Est. Patient 14:36:26 S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 Marvel Charles [facility]-24531 Level 3 Est. Patient 13:34:47 S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 Alina Castaneda MD [facility]53920 Level 3 Est. Patient 19:52:08 S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 Alina Castaneda MD [facility]-37399 Level 3 Est. Patient 10:01:51 S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 [facility]-84585 Level 3 Est. Patient 21:54:06 CDT Vanessa Hickey MD [facility]-28594 Level 3 Est. Patient 08:54:46 CDT Alina Castaneda MD [facility]-35258 Level 3 Est. Patient 09:32:11 CDT Marvel Charles [facility]-91600 Level 3 Est. Patient 12:02:49 CDT Alina Castaneda MD [facility]-55356 Level 3 Est. Patient 19:17:33 CDT Alina Castaneda MD [facility]-14722 Level 3 Est. Patient 13:19:10 CDT Marvel Charles [facility]-30069 Level 3 Est. Patient 08:20:05 CDT Alina Castaneda MD [facility]25019 Level 3 Est. Patient 15:17:18 CDT Alina Castaneda MD [facility]-60644 Level 3 Est. Patient 14:25:36 S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 Marvel Charles [facility] CPT-87638 Level 3 Est. Patient 10:09:15 S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 Marvel Charles [facility] CPT-26868 Level 3 Est. Patient 21:28:43 CDT Alina Castaneda MD [facility]-52924 Level 3 Est. Patient 15:20:11 CDT Marvel Thurstonestela [facility]-51455 Level 4 Est. Patient 19:08:12 CDT Alina Castaneda MD [facility]-41787 Level 3 Est. Patient 15:06:39 [facility]-53238 Level 4 Est. Patient 17:48:15 CDT Alina Castaneda MD [facility]-18057 Level 3 Est. Patient 14:53:49 CDT Alina Csataneda MD [facility]-91478 Level 3 Est. Patient 09:35:16 CDT Alina Castaneda MD [facility]-24234 Level 3 Est. Patient 12:23:22 CDT Alina Castaneda MD [facility] CPT-57462 Level 3 Est. Patient 16:19:15 CDT Alina Castaneda MD [facility]-64820 Level 3 Est. Patient 21:39:56 S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 Alina Castaneda MD [facility]-75150 Level 4 Est. Patient 14:12:56 [employer]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 Alina Castaneda MD [facility]-02097 Level 2 Est. Patient 15:34:57 [employer]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 Alina Castaneda MD [facility]-35513 Level 3 Est. Patient 12:17:04 [employer]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 Alina Castaneda MD [facility]-99822 Level 3 Est. Patient 09:18:18 S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 Marvel Charles [facility]-[address]71 Level 2 Est. Patient 21:50:24 CDT Alina Castaneda MD [facility]-82266 Level 3 Est. Patient 09:17:28 CDT Marvel [facility]-09700 Level 4 Est. Patient 18:54:02 CDT Alina Castaneda MD [facility]-73229 Level 3 Est. Patient 10:47:10 CDT Alina Castaneda MD [facility]-13426 Level 3 Est. Patient 09:22:20 CDT Marvel [address] [facility]-38205 Level 3 Est. Patient 16:39:43 CDT Marvel [address] [facility]-66514 Level 3 Est. Patient 16:05:16 CDT Alina Castaneda MD [facility]-30738 Level 3 Est. Patient 00:29:15 CDT Alina Castaneda MD [facility]-05247 Level 3 Est. Patient 10:49:22 [employer]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 Marvel Charles [id number] Level 3 Est. Patient 21:30:19 S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 Alina Castaneda MD [facility]-52557 Level 4 Est. Patient 17:04:11 S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 Marvel Charles [facility]-93803 Level 3 Est. 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 Patient 13:20:01 [employer]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 Alian Castaneda MD PhD [facility] CPT-49678 Level 3 Est. Patient 09:23:35 CDT Alina Castaneda MD PhD [facility] Procedures Code Procedure Name Date Entry Date Standard Description CPT-60616 Bladder Scan 14:39:01 [employer]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 CPT-TCMM Transitional Care Mgmt-Moderate 10:30:19 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 CPT-02057 Bladder Scan 12:36:44 CDT CPT-83939 Bladder Scan 21:54:06 CDT CPT-G0008 Administration of Influenza Virus Vaccine 13:05:26 CDT CPT-90366 Fluzone Quadrivalent Intramuscular Suspension 0.5 ML 13: 05:26 CDT CPT-69918 Administration single or combination vaccine inc oral 11 :49:51 CDT CPT-92022 Pneumovax 11:49:51 CDT CPT-37889 Ribs unilateral 2V 12:37:22 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 CPT-82196 Chest 2V Frontal and Lat 17:15:26 CDT CPT-01794 Abx/Therapy Injection 18:54:02 CDT CPT-J0696 Rocephin 1000 mg (Ceftriaxone) 16:00:32 CDT CPT-96956 Chest 2V Frontal and Lat 15:26:45 CDT CPT-49319 Chest 2V Frontal and Lat 10:23:27 CDT CPT-37977 Venipuncture Draw Fee 10:11:00 CDT CPT-57998 Administration single or combination vaccine inc oral 11 :56:38 CDT CPT-63408 Influenza split virus > age 3 11:56:38 CDT CPT-45930 Venipuncture Draw Fee 08:49:54 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 CPT-72149 EKG Trac and Interp 17:54:19 [employer]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
--- OUTSIDE RECORDS SUMMARY | 2018-07-02 18:07 | XMS REPORT | Clinical Summary ---
Author Author Admin, TERELL Organization [employer] Address Unknown Phone Unavailable Allergies, Adverse Reactions, 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 Erazo [facility] Benign paroxysmal positional vertigo Vertigo, benign paroxysmal position 386.11 Inactive Mima Erazo [facility] Benign paroxysmal positional vertigo High-risk sexual behavior V69.2 Active Alina Castaneda MD PhD High-risk sexual behavior Erectile dysfunction 302.72 Active Alina Castaneda MD PhD Psychosexual dysfunction with inhibited sexual excitement Constipation 564.00 Active Alina Castaneda MD PhD Constipation, unspecified Skin lesion 709.9 Active Alina Castaneda MD PhD Unspecified disorder of skin and subcutaneous tissue Malaise and fatigue 780.79 Active Cherelle Speaks [facility] Other malaise and fatigue Diarrhea 787.91 Active Cherelle Speaks [facility] Diarrhea PHARYNGITIS 462 Active Cherelle Speaks [facility] Acute pharyngitis Colitis 558.9 Active Mima Erazo [facility] Other and unspecified noninfectious gastroenteritis and colitis [...] HEMATOMA ICD-432.1 Inactive Alina Castaneda MD PhD SINUSITIS, ACUTE [...] Take one by mouth daily LURASIDONE HCL 01905620538 Active Salina Ervinford [facility] Active MORPHINE SULFATE 30 MG ORAL TABS by mouth twice a day MORPHINE SULFATE 94455265040 Active Salina Emely [facility] Active TRAZODONE HCL 100 MG TABS 1 every night to prevent headaches TRAZODONE HCL 07618685455 Active Gabrielle Madl [employer] Active LATUDA 60 MG ORAL TABS 1 tab daily LURASIDONE HCL 96071228151 Active Gabrielleadrienne Marquez [employer]OCIATE Active CLONAZEPAM 1 MG TABS 1 pill by mouth three times daily CLONAZEPAM 86303020159 Active Gabrielle Madl [employer]ODUCT SAFET[employer] ASSOCIATE Active [facility] MILK OF MAGNESIA 400 MG/5ML ORAL SUSP 30ml by mouth bid prn MAGNESIUM HYDROXIDE 44614668787 Active Mason Loredo MD Active TYLENOL 8 HOUR 650 MG ORAL CR-TABS 1 tab QID prn ACETAMINOPHEN 86513712083 Active Mason Loredo MD Active MYLANTA GAS RELIEF MAXIMUM STR 125 MG ORAL CAPS 30cc every 4 hours prn 12/01 SIMETHICONE 48081092427 Active Mason Loredo MD Active IMODIUM A-D 2 MG ORAL TABS 1 tab QID as needed LOPERAMIDE HCL 65443568307 Active Mason Loredo MD Active FLUVOXAMINE MALEATE 50 MG ORAL TABS 1 tab by mouth daily FLUVOXAMINE MALEATE 66445117163 Active Mason Loredo MD Active TRAVATAN Z 0.004 % SOLN 1 gtt each eye daily TRAVOPROST 89360783636 No Longer Active Mason Loredo MD Active LISINOPRIL 20 MG TABS 1 BID LISINOPRIL 17454379296 No Longer Active Mason Loredo MD Active LEVEMIR FLEXTOUCH 100 UNIT/ML SC SOPN 60 units SQ each evening, for diabetes INSULIN DETEMIR 06823766775 Active Desi Noyolaer Active ZOLPIDEM TARTRATE 10 MG TABS take at bedtime ZOLPIDEM TARTRATE 10866642617 No Longer Active Mason Loredo MD Active HYDROCODONE-ACETAMINOPHEN 5-325 MG TABS 2 tabs by mouth three times daily for pain HYDROCODONE-ACETAMINOPHEN 02965974740 No Longer Active Mason Loredo MD Active ZOFRAN 4 MG TABS 1 po q4hr PRN Nausea ONDANSETRON HCL 86602423930 No Longer Active Mason Loredo MD Active LOMOTIL 2.5-0.025 MG ORAL TABS take 1-2 tabs PO after each stool, no more than 8 in 24 hours DIPHENOXYLATE-ATROPINE 58951968343 No Longer Active Mason Loredo MD Active COLACE 100 MG CAPS 1 pill by mouth twice daily, for constipation DOCUSATE SODIUM 35860126613 No Longer Active Mima Erazo APRN Active FLONASE ALLERGY RELIEF 50 MCG/ACT NASAL SUSP One spray each nostril BID x 1 week then daily FLUTICASONE PROPIONATE 99563421794 Active Mima Erazo APRN Active BD PEN NEEDLE MINI U/F 31G X 5 MM MISC 4 a day INSULIN PEN NEEDLE 17190156749 Active Maliheh Ziglari [employer] [facility] Active AMITIZA 24 MCG ORAL CAPS Take one capsule BID for constipation LUBIPROSTONE 88032582854 Active Mima Erazo APRN Active TRUEPLUS LANCETS 30G MISC 3 a day LANCETS 84720426516 Active Marvel Mackenzieglari [employer] [facility] Active TOLTERODINE TARTRATE 2 MG TABS 1 pill twice daily, for bladder TOLTERODINE TARTRATE 49123715521 No Longer Active Vanessa Hickey MD Active AMITIZA 24 MCG ORAL CAPS Take one capsule BID for constipation. LUBIPROSTONE 37108553306 No Longer Active Vanessa Hickey MD Active FLUVOXAMINE MALEATE 100 MG ORAL TABS take one tab every AM et HS, and take 1/ 2 tab at noon FLUVOXAMINE MALEATE 65546471954 Active Grace Azam RMA Active METOPROLOL SUCCINATE 100 MG [id number] 1 by mouth daily for blood pressure METOPROLOL SUCCINATE 47794123841 No Longer Active Grace Azam RMA Active METFORMIN HCL ER 500 MG CI68Q-UNB Take three tablets by mouth everyday METFORMIN HCL 79553001807 No Longer Active Grace Azam RMA Active LOVAZA 1 GM CAPS 4 daily (for triglycerides) OMEGA-3- ACID ETHYL ESTERS 40916131473 No Longer Active Grace Azam RMA Active TRAZODONE HCL 100 MG ORAL TABS 1 tab by mouth for sleep TRAZODONE HCL 98036466183 No Longer Active Grace Azam RMA Active NOVOFINE 32G X 6 MM MISC use one four times per day INSULIN PEN NEEDLE 53916638645 No Longer Active Grace Azam RMA Active BACTROBAN 2 % CREAM Apply to affected area BID for up to 10 days MUPIROCIN CALCIUM 14795726822 No Longer Active Grace Azam RMA Active KEFLEX 500 MG CAP 1 po BID x 7 days CEPHALEXIN 43720926989 No Longer Active Cherelle Avila [facility] Active FLUVOXAMINE MALEATE 100 MG TABS Take one (1) tablet by mouth am, 1/2 at noon FLUVOXAMINE MALEATE 00574271499 No Longer Active Mima Erazo [facility] Active CORICIDIN HBP CONGESTION/COUGH 10-200 MG ORAL CAPS Take as directed on box as needed for cold/flu symptoms DEXTROMETHORPHAN-GUAIFENESIN 32147705126 Active Cherelle Avila [facility] Active OMEGA-3 300 MG ORAL CAPS 4 caps by mouth daily OMEGA-3 FATTY ACIDS 49602973906 Active Mima Erazo [facility] Active FLUVOXAMINE MALEATE 100 MG ORAL TABS Take 1/2 tab at noon FLUVOXAMINE MALEATE 94445097734 No Longer Active Cherelle Avila [facility] Active [facility] LUBRICANT EYE DROPS 0.4-0.3 % OPHTH SOLN POLYETHYL GLYCOL-PROPYL GLYCOL 45035955972 Active Mima Erazo [facility] Active MIRALAX POWD 17g by mouth daily, for constipation POLYETHYLENE GLYCOL 3350 87875912746 Active Alina Castaneda MD PhD Active HUMALOG KWIKPEN 100 UNIT/ML SC SOPN 20 units with breakfast, 10 units with lunch, 10 units with dinner, for diabetes INSULIN LISPRO (HUMAN ) 98584575114 Active Alina Castaneda MD PhD Active TRUETEST TEST STRP check blood sugars 3x/day GLUCOSE BLOOD 20940412577 Active Mallashondaeh Ziglari [employer] Active ACCU-CHEK ROSA UZMA Use device to check blood sugars BLOOD GLUCOSE MONITORING SUPPL 72736289033 No Longer Active Maliheh Ziglari [employer] Active ACCU-CHEK ROSA INVITR STRP use strips with device to check blood sugars 3 times daily GLUCOSE BLOOD 99292990062 No Longer Active Maljohn Mackenzieglari [employer] Active VERAPAMIL HCL ER 180 MG ORAL CR-TABS 1 pill by mouth twice daily, for migraine prevention VERAPAMIL HCL 92001178811 Active CRYSTAL Rodrigues Active CYCLOBENZAPRINE HCL 10 MG TABS 1 tablet by mouth three times daily, scheduled CYCLOBENZAPRINE HCL 03783436786 No Longer Active Alina Castaneda MD PhD Active HUMALOG 100 UNIT/ML SOLN Take 20 units with breakfast, 10u with lunch and suppetr. INSULIN LISPRO (HUMAN) 74412822878 No Longer Active Alina Castaneda MD PhD Active TRUETEST TEST STRP check sugars 4x/day GLUCOSE BLOOD 32990420978 No Longer Active Alina Castaneda MD PhD Active MORPHINE SULFATE 30 MG TABS 1 pill by mouth twice daily, for pain MORPHINE SULFATE 56284949433 No Longer Active Mason Loredo MD Active ACYCLOVIR 400 MG ORAL TABS 1 pill three times daily x 5 days, for cold sore outbreak ACYCLOVIR 29925742243 No Longer Active Alina Castaneda MD PhD Active PENICILLIN V POTASSIUM 500 MG TABS 1 pill by mouth three times daily PENICILLIN V POTASSIUM 43143156186 No Longer Active Alina Castaneda MD PhD Active UROXATRAL 10 MG [id number]-RZJ Take 1 tablet by mouth daily ALFUZOSIN HCL 63195510794 No Longer Active Alina Castaneda MD PhD Active THIOTHIXENE 5 MG CAPS by mouth twice a day THIOTHIXENE 77111604979 No Longer Active Alina Castaneda MD PhD Active ZYPREXA 7.5 MG TABS 1 at HS OLANZAPINE 16819454920 No Longer Active Alina Castaneda MD PhD Active BD INSULIN SYRINGE 28G X 1/2" 1 ML MISC 1 four times per day INSULIN SYRINGE-NEEDLE U-100 35575714422 Active Marvel MENDOZAP Active DETROL LA 4 MG DT71H-OPS Take 1 tablet by mouth daily TOLTERODINE TARTRATE 42910694824 No Longer Active Alina Castaneda MD PhD Active TERESE CONTOUR TEST STRP monitor blood sugars 3x/day GLUCOSE BLOOD 35483334966 No Longer Active Alina Castaneda MD PhD Active EQL TRUETEST TEST STRP Test blood sugar TID GLUCOSE BLOOD 51033470980 No Longer Active Alina Castaneda MD PhD Active FLUTICASONE PROPIONATE 50 MCG/ACT SUSP 2 sprays each nostril qDay x 30 days FLUTICASONE PROPIONATE 19481635151 No Longer Active Alina Castaneda MD PhD Active IBUPROFEN 200 MG TABS 1 Q 6 hr. PRN IBUPROFEN 13616735860 No Longer Active Alina Castaneda MD PhD Active NIACIN ER 500 MG CR-TABS 4 qHS (for triglycerides) NIACIN 50845684169 No Longer Active Alina Castaneda MD PhD Active ALFUZOSIN HCL ER 10 MG [id number]-[id number] 1 tablet daily ALFUZOSIN HCL 77962253894 Active CRYSTAL Rodrigues Active SAPHRIS 5 MG SUBL by mouth twice a day ASENAPINE MALEATE 83310729512 No Longer Active Maliheh Ziglari [employer] Active ACETAMINOPHEN 500 MG TABS 2 Q 6 hr. PRN ACETAMINOPHEN 39066254162 No Longer Active Maliheh Ziglari [employer] Active ORPHENADRINE CITRATE ER 100 MG [id number] 1 every 12 hr. as needed ORPHENADRINE CITRATE 74319501518 No Longer Active Alina Castaneda MD PhD Active NIACIN CR 500 MG CR-TABS 2 qHS NIACIN 90325282495 No Longer Active Alina Castaneda MD PhD Active AMOXICILLIN 500 MG CAPS 2 po BID x 10 days AMOXICILLIN 95611329958 No Longer Active Alina Castaneda MD PhD Active HYDROCODONE-ACETAMINOPHEN 7.5-325 MG TABS 1 four times a day as needed for pain HYDROCODONE-ACETAMINOPHEN 04807632210 No Longer Active Alina Castaneda MD PhD Active DOXEPIN HCL 10 MG CAPS Take 1 tablet by mouth daily DOXEPIN HCL 91811381092 No Longer Active Salina Emely RMA Active NAVANE 10 MG CAPS 1/2 tablet twice a day THIOTHIXENE No Longer Active Salina Han RMA Active CYCLOBENZAPRINE HCL 10 MG TABS 1/2 tablet by mouth every 8 hours as needed for muscle spasms CYCLOBENZAPRINE HCL 80896620407 No Longer Active Alina Castaneda MD PhD Active BACTROBAN 2 % CREAM apply to ear and nose twice daily MUPIROCIN CALCIUM 23377497969 No Longer Active Alina Castaneda MD PhD Active HYDROCODONE-ACETAMINOPHEN 5-325 MG TABS take one tablet by mouth every four hours as needed for pain HYDROCODONE-ACETAMINOPHEN 72416417861 No Longer Active Alina Castaneda MD PhD Active ZYPREXA 5 MG TABS take one tablet by mouth every evening OLANZAPINE 69857426808 No Longer Active Alina Castaneda MD PhD Active ALBUTEROL SULFATE 0.083 % NEBU SOLN one vial per nebulizer TID and PRN cough/ soa ALBUTEROL SULFATE 49805945766 No Longer Active Alina Castaneda MD PhD Active GUAIFENESIN 600 MG FQ26R-TSG 1 tablet by mouth twice daily if needed for cough GUAIFENESIN 34179482197 No Longer Active Marvel Charles [employer] Active AZITHROMYCIN 500 MG SOLR 1 po q day AZITHROMYCIN 32821524915 No Longer Active Alina Castaneda MD PhD Active PROMETHAZINE-CODEINE 6.25-10 MG/5ML SYRP 1 tsp po q 6 hours prn cough PROMETHAZINE-CODEINE 18557430048 No Longer Active Alina Castaneda MD PhD Active CEFDINIR 300 MG CAPS by mouth twice a day CEFDINIR 00364305814 No Longer Active Alina Castaneda MD PhD Active METFORMIN HCL 500 MG OH55E-MGD Take 3 tablets by mouth everyday METFORMIN HCL 63358134708 No Longer Active Alina Castaneda MD PhD Active LEVEMIR 100 UNIT/ML SOLN 90 units SQ qHS INSULIN DETEMIR 99218274373 No Longer Active Marvel MARROQUIN Active TOPROL XL 100 MG [id number]-OYT 1 @ HS METOPROLOL SUCCINATE 66724923518 No Longer Active Marvel MARROQUIN Active ALLOPURINOL 300 MG TABS Take one by mouth daily ALLOPURINOL 07312961231 Active Mima Erazo [facility] Active ZYPREXA 10 MG TABS Take one by mouth daily OLANZAPINE 84232135493 No Longer Active Alina Castaneda MD PhD Active NOVOLOG 100 UNIT/ML SOLN 40 units with every meal INSULIN ASPART 54798217331 No Longer Active Alina Castaneda MD PhD Active VERAPAMIL HCL CR 120 MG TAB CR 1 qPM VERAPAMIL HCL 26494759631 No Longer Active Salina ROJAS Active ZYPREXA 15 MG TABS Take 1 tablet by mouth daily OLANZAPINE 44587543411 No Longer Active Marvel MARROQUIN Active ALBUTEROL SULFATE (2.5 MG/3ML) 0.083% NEBU 1 neb tid and prn cough ALBUTEROL SULFATE 52793597530 No Longer Active Alina Castaneda MD PhD Active LANTUS 100 UNIT/ML SOLN 60 units sq q hs INSULIN GLARGINE 41674021422 No Longer Active CRYSTAL Suarez Active ALBUTEROL SULFATE (2.5 MG/3ML) 0.083% NEBU 1 neb tid and prn cough ALBUTEROL SULFATE (2.5 MG/3ML) 0.083% NEBU 586331 ALBUTEROL SULFATE Inactive ZYPREXA 15 MG TABS Take 1 tablet by mouth daily ZYPREXA 15 MG TABS 462942 OLANZAPINE Inactive VERAPAMIL HCL CR 120 MG TAB CR 1 qPM VERAPAMIL HCL CR 120 MG TAB CR VERAPAMIL HCL Inactive ZYPREXA 10 MG TABS Take one by mouth daily ZYPREXA 10 MG TABS 859359 OLANZAPINE Inactive TOPROL XL 100 MG NJ95G-YAH 1 @ HS TOPROL XL 100 MG OL32A-UFF METOPROLOL SUCCINATE Inactive LEVEMIR 100 UNIT/ML SOLN 90 units SQ qHS LEVEMIR 100 UNIT/ML SOLN INSULIN DETEMIR Inactive PROMETHAZINE-CODEINE 6.25-10 MG/5ML SYRP 1 tsp po q 6 hours prn cough PROMETHAZINE-CODEINE 6.25-10 MG/5ML SYRP 839904 PROMETHAZINE- CODEINE Inactive GUAIFENESIN 600 MG RZ55T-ENE 1 tablet by mouth twice daily if needed for cough GUAIFENESIN 600 MG LH95Q-ZVS GUAIFENESIN Inactive ALBUTEROL SULFATE 0.083 % NEBU SOLN one vial per nebulizer TID and PRN cough/ soa ALBUTEROL SULFATE 0.083 % NEBU SOLN 505934 ALBUTEROL SULFATE Inactive ZYPREXA 5 MG TABS take one tablet by mouth every evening ZYPREXA 5 MG TABS 898697 OLANZAPINE Inactive HYDROCODONE-ACETAMINOPHEN 5-325 MG TABS take one tablet by mouth every four hours as needed for pain HYDROCODONE-ACETAMINOPHEN 5-325 MG TABS 150478 HYDROCODONE-ACETAMINOPHEN Inactive BACTROBAN 2 % CREAM apply to ear and nose twice daily BACTROBAN 2 % CREAM 159635 MUPIROCIN CALCIUM Inactive CYCLOBENZAPRINE HCL 10 MG TABS 1/2 tablet by mouth every 8 hours as needed for muscle spasms CYCLOBENZAPRINE HCL 10 MG TABS 917750 CYCLOBENZAPRINE HCL Inactive NAVANE 10 MG CAPS 1/2 tablet twice a day NAVANE 10 MG CAPS THIOTHIXENE Inactive DOXEPIN HCL 10 MG CAPS Take 1 tablet by mouth daily DOXEPIN HCL 10 MG CAPS 5203154 DOXEPIN HCL Inactive HYDROCODONE-ACETAMINOPHEN 7.5-325 MG TABS 1 four times a day as needed for pain HYDROCODONE-ACETAMINOPHEN 7.5-325 MG TABS 198760 HYDROCODONE-ACETAMINOPHEN Inactive NIACIN CR 500 MG CR-TABS 2 qHS NIACIN CR 500 MG CR- TABS NIACIN Inactive ORPHENADRINE CITRATE ER 100 MG IA68G-EJQ 1 every 12 hr. as needed ORPHENADRINE CITRATE ER 100 MG [id number]-THH ORPHENADRINE CITRATE Inactive ACETAMINOPHEN 500 MG TABS 2 Q 6 hr. PRN ACETAMINOPHEN 500 MG TABS 050510 ACETAMINOPHEN Inactive SAPHRIS 5 MG SUBL by mouth twice a day SAPHRIS 5 MG SUBL ASENAPINE MALEATE Inactive NIACIN ER 500 MG CR-TABS 4 qHS (for triglycerides) NIACIN ER 500 MG CR-TABS NIACIN Inactive IBUPROFEN 200 MG TABS 1 Q 6 hr. PRN IBUPROFEN 200 MG TABS 163450 IBUPROFEN Inactive FLUTICASONE PROPIONATE 50 MCG/ACT SUSP 2 sprays each nostril qDay x 30 days FLUTICASONE PROPIONATE 50 MCG/ACT SUSP 510639 FLUTICASONE PROPIONATE Inactive EQL TRUETEST TEST STRP Test blood sugar TID EQL TRUETEST TEST STRP GLUCOSE BLOOD Inactive TERESE CONTOUR TEST STRP monitor blood sugars 3x/day TERESE CONTOUR TEST STRP GLUCOSE BLOOD Inactive DETROL LA 4 MG [id number] Take 1 tablet by mouth daily DETROL LA 4 MG [id number]-KTI TOLTERODINE TARTRATE Inactive ZYPREXA 7.5 MG TABS 1 at HS ZYPREXA 7.5 MG TABS 235902 OLANZAPINE Inactive THIOTHIXENE 5 MG CAPS by mouth twice a day THIOTHIXENE 5 MG CAPS 529985 THIOTHIXENE Inactive UROXATRAL 10 MG LQ15H-WIR Take 1 tablet by mouth daily UROXATRAL 10 MG AU59X-KIR ALFUZOSIN HCL Inactive ACYCLOVIR 400 MG ORAL TABS 1 pill three times daily x 5 days, for cold sore outbreak ACYCLOVIR 400 MG ORAL TABS 988120 ACYCLOVIR Inactive TRUETEST TEST STRP check sugars 4x/day TRUETEST TEST STRP GLUCOSE BLOOD Inactive HUMALOG 100 UNIT/ML SOLN Take 20 units with breakfast, 10u with lunch and suppetr. HUMALOG 100 UNIT/ML SOLN INSULIN LISPRO ( HUMAN) Inactive CYCLOBENZAPRINE HCL 10 MG TABS 1 tablet by mouth three times daily, scheduled CYCLOBENZAPRINE HCL 10 MG TABS 545416 CYCLOBENZAPRINE HCL Inactive ACCU-CHEK ROSA INVITR STRP use strips with device to check blood sugars 3 times daily ACCU-CHEK ROSA INVITR STRP GLUCOSE BLOOD Inactive ACCU-CHEK ROSA UZMA Use device to check blood sugars ACCU-CHEK ROSA UZMA BLOOD GLUCOSE MONITORING SUPPL Inactive FLUVOXAMINE MALEATE 100 MG ORAL TABS Take 1/2 tab at noon FLUVOXAMINE MALEATE 100 MG ORAL TABS 277413 FLUVOXAMINE MALEATE Inactive FLUVOXAMINE MALEATE 100 MG TABS Take one (1) tablet by mouth am, 1/2 at noon FLUVOXAMINE MALEATE 100 MG TABS 313699 FLUVOXAMINE MALEATE Inactive BACTROBAN 2 % CREAM Apply to affected area BID for up to 10 days BACTROBAN 2 % CREAM 299367 MUPIROCIN CALCIUM Inactive NOVOFINE 32G X 6 MM MISC use one four times per day NOVOFINE 32G X 6 MM MISC INSULIN PEN NEEDLE Inactive TRAZODONE HCL 100 MG ORAL TABS 1 tab by mouth for sleep TRAZODONE HCL 100 MG ORAL TABS 170838 TRAZODONE HCL Inactive LOVAZA 1 GM CAPS 4 daily (for triglycerides) LOVAZA 1 GM CAPS 262154 CJGGQ-0-NXCO ETHYL ESTERS Inactive METFORMIN HCL ER 500 MG [id number]-UJS Take three tablets by mouth everyday METFORMIN HCL ER 500 MG AS60M-ITV METFORMIN HCL Inactive METOPROLOL SUCCINATE 100 MG TR58O-LXQ 1 by mouth daily for blood pressure METOPROLOL SUCCINATE 100 MG TF51Z-HIX METOPROLOL SUCCINATE Inactive AMITIZA 24 MCG ORAL CAPS Take one capsule BID for constipation. AMITIZA 24 MCG ORAL CAPS LUBIPROSTONE Inactive TOLTERODINE TARTRATE 2 MG TABS 1 pill twice daily, for bladder TOLTERODINE TARTRATE 2 MG TABS 143721 TOLTERODINE TARTRATE Inactive COLACE 100 MG CAPS 1 pill by mouth twice daily, for constipation COLACE 100 MG CAPS 1655035 DOCUSATE SODIUM Inactive LOMOTIL 2.5-0.025 MG ORAL TABS take 1-2 tabs PO after each stool, no more than 8 in 24 hours LOMOTIL 2.5-0.025 MG ORAL TABS 9185955 DIPHENOXYLATE-ATROPINE Inactive ZOFRAN 4 MG TABS 1 po q4hr PRN Nausea ZOFRAN 4 MG TABS 634109 ONDANSETRON HCL Inactive HYDROCODONE-ACETAMINOPHEN 5-325 MG TABS 2 tabs by mouth three times daily for pain HYDROCODONE-ACETAMINOPHEN 5-325 MG TABS 784573 HYDROCODONE-ACETAMINOPHEN Inactive ZOLPIDEM TARTRATE 10 MG TABS take at bedtime ZOLPIDEM TARTRATE 10 MG TABS 823793 ZOLPIDEM TARTRATE Inactive LISINOPRIL 20 MG TABS 1 BID LISINOPRIL 20 MG TABS 043273 LISINOPRIL Inactive TRAVATAN Z 0.004 % SOLN 1 gtt each eye daily TRAVATAN Z 0.004 % SOLN TRAVOPROST Inactive CEFDINIR 300 MG CAPS by mouth twice a day CEFDINIR 300 MG CAPS 395976 CEFDINIR Inactive AZITHROMYCIN 500 MG SOLR 1 po q day AZITHROMYCIN 500 MG SOLR 46175545280 AZITHROMYCIN Inactive AMOXICILLIN 500 MG CAPS 2 po BID x 10 days AMOXICILLIN 500 MG CAPS 199389 AMOXICILLIN Inactive PENICILLIN V POTASSIUM 500 MG TABS 1 pill by mouth three times daily PENICILLIN V POTASSIUM 500 MG TABS 016176 PENICILLIN V POTASSIUM Inactive KEFLEX 500 MG CAP 1 po BID x 7 days KEFLEX 500 MG CAP 590413 CEPHALEXIN Inactive Immunizations Vaccine Administration Date Value [...] Fluvirin, Fluarix, Agriflu(>=18 yo)) Fluzone (>3 yrs.) [[id number]] Influenza, seasonal, injectable pneumococcal immunization administered Pneumovax [...] Panel - Chemistry sodium, serum 137 mmol/L 044-388 9845/10/12 potassium, serum 4.8 mmol/L 3.5-5.2 chloride, serum 102 mmol/L 98-107 carbon dioxide, venous blood 27.6 mmol/L 21.0-32.0 blood glucose 168 mg/dL 65-110 calcium, serum 9.0 mg/dL 8.5-10.1 urea nitrogen, blood 15 mg/dL 7-18 creatinine, serum 1.04 mg/dL 0.55-1.30 sodium, serum 138 mmol/L 836-536 7036/11/11 potassium, serum 4.7 mmol/L 3.5-5.2 chloride, serum [...] % 11.6-14.8 platelet count 240 10^3/MM^3 10*3/mm3 979-940 7729/11/11 leukocyte count, blood 9.6 10^3/MM^3 10*3/mm3 4.6-10.2 [...] Acid - Chemistry cholesterol, serum 187 mg/dL 700-579 6344/06/14 triglyceride, serum, fasting 246 mg/dL 30-200 HDL [...] negative Encounters Code Encounter Date Provider Facility CPT-10526 Level 3 Est. Patient 14:34:52 CDT Vanessa Hickey MD [facility]-79242 Level 3 Est. Patient 16:27:51 CDT Mima Erazo [facility]-02583 Level 3 Est. Patient 14:39:00 COLLARETTE SEPARATOR Vanessa Hickey MD [facility]-57643 Level 2 Est. Patient 18:43:34 CDT Mima Erazo [facility] CPT-99758 Level 3 Est. Patient 16:22:09 CDT Cherelle Avila [facility] CPT-38584 Level 4 Est. Patient 17:55:14 CDT Mima Erazo [facility] CPT-41232 Level 2 Est. Patient 17:13:21 CDT Alina Castaneda MD PhD [facility]-33046 Level 3 Est. Patient 14:46:15 CDT Vanessa Hickey MD [facility]-86258 Level 3 Est. Patient 09:34:56 CDT Alina Castaneda MD PhD [facility]-17916 Level 3 Est. Patient 21:40:19 CDT Mima Erazo APRN [facility]-33414 Level 3 Est. Patient 09:26:40 CDT Marvel [facility]03734 Level 3 Est. Patient 12:36:43 CDT Vanessa Hickey MD [facility]-76624 Level 3 Est. Patient 12:57:49 CDT Vanessa Hickey MD [facility]34180 Level 3 Est. Patient 00:28:25 CDT Alina Castaneda MD [facility]21710 Level 2 Est. Patient 12:52:14 CDT Alina Castaneda MD [facility]20337 Level 3 Est. Patient 11:51:18 COLLARETTE SEPARATOR Alina Castaneda MD [facility]09695 Level 3 Est. Patient 10:09:22 COLLARETTE SEPARATOR Alina Castaneda MD [facility]69323 Level 3 Est. Patient 14:36:26 COLLARETTE SEPARATOR Marvel Charles [facility]30132 Level 3 Est. Patient 13:34:47 COLLARETTE SEPARATOR Alina Castaneda MD [facility]65250 Level 3 Est. Patient 19:52:08 COLLARETTE SEPARATOR Alina Castaneda MD [facility]15158 Level 3 Est. Patient 10:01:51 COLLARETTE SEPARATOR Marvel Charles [facility]12225 Level 3 Est. Patient 21:54:06 CDT Vanessa Hickey MD [facility]81365 Level 3 Est. Patient 08:54:46 CDT Alina Castaneda MD [facility]57193 Level 3 Est. Patient 09:32:11 CDT Marvel Charles [facility]-20578 Level 3 Est. Patient 12:02:49 CDT Alina [id number] Level 3 Est. Patient 19:17:33 CDT Alina Castaneda MD [facility]41714 Level 3 Est. Patient 13:19:10 CDT Marvel Charles [facility]-28131 Level 3 Est. Patient 08:20:05 CDT Alina Castaneda MD [facility]10900 Level 3 Est. Patient 15:17:18 CDT Alina Castaneda MD [facility]59295 Level 3 Est. Patient 14:25:36 COLLARETTE SEPARATOR Marvel Charles [facility]-93152 Level 3 Est. Patient 10:09:15 COLLARETTE SEPARATOR Marvel Charles [facility]-87945 Level 3 Est. Patient 21:28:43 CDT Alina Castaneda [id number] Level 3 Est. Patient 15:20:11 [facility]-78633 Level 4 Est. Patient 19:08:12 CDT Alina Castaneda MD [id number] Level 3 Est. Patient 15:06:39 CDT Marvel Gurdeepajayestela [facility]-23387 Level 4 Est. Patient 17:48:15 CDT Alina Castaneda MD [facility]42551 Level 3 Est. Patient 14:53:49 CDT Alina Castaneda MD [facility]39939 Level 3 Est. Patient 09:35:16 CDT Alina Castaneda MD [id number] Level 3 Est. Patient 12:23:22 CDT Alina Castaneda MD [id number] Level 3 Est. Patient 16:19:15 CDT Alina Castaneda MD [facility]35362 Level 3 Est. Patient 21:39:56 COLLARETTE SEPARATOR Alina Castaneda MD [facility] [id number] Level 4 Est. Patient 14:12:56 COLLARETTE SEPARATOR Alina Castaneda MD [facility]37671 Level 2 Est. Patient 15:34:57 COLLARETTE SEPARATOR Alina Castaneda MD [facility] [id number] Level 3 Est. Patient 12:17:04 COLLARETTE SEPARATOR Alina Castaneda MD [facility] [id number] Level 3 Est. Patient 09:18:18 COLLARETTE SEPARATOR Marvel Charles [facility]-25121 Level 2 Est. Patient 21:50:24 CDT Alina Castaneda MD [facility] [id number] Level 3 Est. Patient 09:17:28 CDT Marvel Charles [facility]-01418 Level 4 Est. Patient 18:54:02 CDT Alina Castaneda MD [facility] [id number] Level 3 Est. Patient 10:47:10 CDT Alina Castaneda MD [facility] [id number] Level 3 Est. Patient 09:22:20 CDT Marvel Charles [facility]53173 Level 3 Est. Patient 16:39:43 CDT Marvel Charles [facility]-23072 Level 3 Est. Patient 16:05:16 CDT Alina Castaneda MD [facility] CPT-01360 Level 3 Est. Patient 00:29:15 CDT Alina Castaneda MD [facility] CPT-76638 Level 3 Est. Patient 10:49:22 COLLARETTE SEPARATOR Marvel Thurstonestela [facility] CPT-16309 Level 3 Est. Patient 21:30:19 COLLARETTE SEPARATOR Alina Castaneda MD [facility] CPT-14452 Level 4 Est. Patient 17:04:11 COLLARETTE SEPARATOR [facility] CPT-03420 Level 3 Est. Patient 15:34:11 COLLARETTE SEPARATOR [facility] CPT-71013 Level 2 Est. Patient 12:51:58 COLLARETTE SEPARATOR Alina Castaneda MD [facility] CPT-69989 Level 3 Est. Patient 13:20:01 COLLARETTE SEPARATOR Alina Castaneda MD [facility] CPT-37286 Level 3 Est. Patient 09:23:35 CDT Alina Castaneda MD [facility] Procedures Code Procedure Name Date Entry Date Standard Description CPT-TCM Transitional Care Mgmt-Moderate 10:25:31 CDT CPT-12994 Bladder Scan 14:34:53 CDT CPT-92097 Bladder Scan 14:39:01 COLLARETTE SEPARATOR CPT-TCMM Transitional Care Mgmt-Moderate 10:30:19 COLLARETTE SEPARATOR CPT-53222 Bladder Scan 12:36:44 CDT CPT-57123 Bladder Scan 21:54:06 CDT CPT-G0008 Administration of Influenza Virus Vaccine 13:05:26 CDT CPT-51565 Fluzone Quadrivalent Intramuscular Suspension 0.5 ML 13: 05:26 CDT CPT-23827 Administration single or combination vaccine inc oral 11 :49:51 CDT CPT-06496 Pneumovax 11:49:51 CDT CPT-13142 Ribs unilateral 2V 12:37:22 COLLARETTE SEPARATOR CPT-96605 Chest 2V Frontal and Lat 17:15:26 CDT CPT-22689 Abx/Therapy Injection 18:54:02 CDT CPT-J0696 Rocephin 1000 mg (Ceftriaxone) 16:00:32 CDT CPT-81430 Chest 2V Frontal and Lat 15:26:45 CDT CPT-16578 Chest 2V Frontal and Lat 10:23:27 CDT CPT-74783 Venipuncture Draw Fee 10:11:00 CDT CPT-25428 Administration single or combination vaccine inc oral 11 :56:38 CDT CPT-03559 Influenza split virus > age 3 11:56:38 CDT CPT-17850 Venipuncture Draw Fee 08:49:54 COLLARETTE SEPARATOR CPT-01180 EKG Trac and Interp 17:54:19 COLLARETTE SEPARATOR
--- OUTSIDE RECORDS SUMMARY | 2018-07-02 18:09 | XMS REPORT | Clinical Summary ---
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 Erazo [employer] Benign paroxysmal positional vertigo Vertigo, benign paroxysmal position 386.11 Inactive Mima Erazo [employer] Benign paroxysmal positional vertigo High-risk sexual behavior V69.2 Active Alina Castaneda MD PhD High-risk sexual behavior Erectile dysfunction 302.72 Active Alina Castaneda MD PhD Psychosexual dysfunction with inhibited sexual excitement Constipation 564.00 Active Alina Castaneda MD PhD Constipation, unspecified Skin lesion 709.9 Active Alina Castaneda MD PhD Unspecified disorder of skin and subcutaneous tissue Malaise and fatigue 780.79 Active Cherelle Speaks [employer] Other malaise and fatigue Diarrhea 787.91 Active Cherelle Speaks [employer] Diarrhea PHARYNGITIS 462 Active Cherelle Speaks [employer] Acute pharyngitis Colitis 558.9 Active Mima Erazo [employer] Other and unspecified noninfectious gastroenteritis and colitis WOUND, OPEN, NOSE ICD-873.20 Inactive Alina Castaneda MD PhD DIABETES, TYPE 2 ICD-250.00 Inactive Alina Castaneda MD PhD HYPERTENSION ICD-401.9 Inactive Alina Castaneda MD PhD URI ICD-465.9 Inactive Alina Castaneda MD PhD CHEST PAIN ICD-786.50 Inactive Alina Castaneda MD PhD FH STROKE ICD-V17.1 Inactive Marvel Charles [employer]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 ICD-780.79 Inactive Alina Castaneda MD PhD [...] MD PhD Chest pain, atypical ICD-786.59 Inactive Alian Castaneda MD PhD Medication List Medication Instructions Start Date Stop Date Generic Name NDC Status Provider Patient Instruction FLONASE ALLERGY RELIEF 50 MCG/ACT NASAL SUSP One spray each nostril BID x 1 week then daily FLUTICASONE PROPIONATE 63366999261 Active Mima Erazo [employer] Active BD PEN NEEDLE MINI U/F 31G X 5 MM MISC 4 a day INSULIN PEN NEEDLE 83353095417 Active Marvel Mackenzieglestela BRIM POUNCER Active AMITIZA 24 MCG ORAL CAPS Take one capsule BID for constipation LUBIPROSTONE 52884600423 Active Mima Erazo [employer] Active LEVEMIR FLEXTOUCH 100 UNIT/ML SC SOPN 75 units SQ each evening, for diabetes INSULIN DETEMIR 71584797743 Active CRYSTAL Rodrigues Active TRUEPLUS LANCETS 30G MISC 3 a day LANCETS 95737131231 Active Marvel MARROQUIN Active TOLTERODINE TARTRATE 2 MG TABS 1 pill twice daily, for bladder TOLTERODINE TARTRATE 57179535588 No Longer Active Vanessa Hickey MD Active AMITIZA 24 MCG ORAL CAPS Take one capsule BID for constipation. LUBIPROSTONE 32924354639 No Longer Active Vanessa Hickey MD Active LOMOTIL 2.5-0.025 MG ORAL TABS take 1-2 tabs PO after each stool, no more than 8 in 24 hours DIPHENOXYLATE-ATROPINE 61475825685 Active Grace Azam RMA Active FLUVOXAMINE MALEATE 100 MG ORAL TABS take one tab every AM et HS, and take 1/ 2 tab at noon FLUVOXAMINE MALEATE 29109409169 Active Grace Azam RMA Active METOPROLOL SUCCINATE 100 MG [id number] 1 by mouth daily for blood pressure METOPROLOL SUCCINATE 72847968110 No Longer Active Grace Azam RMA Active METFORMIN HCL ER 500 MG [id number]-NTM Take three tablets by mouth everyday METFORMIN HCL 99217439149 No Longer Active Grace Azam RMA Active LOVAZA 1 GM CAPS 4 daily (for triglycerides) OMEGA-3- ACID ETHYL ESTERS 18611331796 No Longer Active Grace Azam RMA Active TRAZODONE HCL 100 MG ORAL TABS 1 tab by mouth for sleep TRAZODONE HCL 16633392733 No Longer Active Grace Azam RMA Active NOVOFINE 32G X 6 MM MISC use one four times per day INSULIN PEN NEEDLE 76189227979 No Longer Active Grace Azam RMA Active BACTROBAN 2 % CREAM Apply to affected area BID for up to 10 days MUPIROCIN CALCIUM 16822193315 No Longer Active Grace Azam RMA Active ZOFRAN 4 MG TABS 1 po q4hr PRN Nausea ONDANSETRON HCL 94146993173 Active Salina Ervinford RMA Active KEFLEX 500 MG CAP 1 po BID x 7 days CEPHALEXIN 11002041112 No Longer Active Cherelle Avila [employer] Active FLUVOXAMINE MALEATE 100 MG TABS Take one (1) tablet by mouth am, 1/2 at noon FLUVOXAMINE MALEATE 80969316019 No Longer Active Mima Erazo [employer] Active CORICIDIN HBP CONGESTION/COUGH 10-200 MG ORAL CAPS Take as directed on box as needed for cold/flu symptoms DEXTROMETHORPHAN-GUAIFENESIN 89470986480 Active Cherelle Avila [employer] Active OMEGA-3 300 MG ORAL CAPS 4 caps by mouth daily OMEGA-3 FATTY ACIDS 71202799261 Active Mima Erazo [employer] Active FLUVOXAMINE MALEATE 100 MG ORAL TABS Take 1/2 tab at noon FLUVOXAMINE MALEATE 60058969878 No Longer Active Cherelle Avila DIRECTOR CAMP Active [facility] LUBR[facility] EYE DROPS 0.4-0.3 % OPHTH SOLN POLYETHYL GLYCOL-PROPYL GLYCOL 72157123823 Active Mima Erazo [employer] Active CLONAZEPAM 1 MG TABS 1/2 pill by mouth three times daily CLONAZEPAM 94088599632 Active Alina Castaneda MD PhD Active MIRALAX POWD 17g by mouth daily, for constipation POLYETHYLENE GLYCOL 3350 65283576487 Active Alina Castaneda MD PhD Active HYDROCODONE-ACETAMINOPHEN 5-325 MG TABS 2 tabs by mouth three times daily for pain HYDROCODONE-ACETAMINOPHEN 96408438922 Active Mima Erazo [employer] Active HUMALOG KWIKPEN 100 UNIT/ML SC SOPN 20 units with breakfast, 10 units with lunch, 10 units with dinner, for diabetes INSULIN LISPRO (HUMAN ) 72582668622 Active Alina Castaneda MD PhD Active LATUDA 120 MG ORAL TABS 1 pill by mouth nightly LURASIDONE HCL 81249584085 Active Alina Castaneda MD PhD Active COLACE 100 MG CAPS 1 pill by mouth twice daily, for constipation DOCUSATE SODIUM 07547776889 Active Alina Castaneda MD PhD Active TRUETEST TEST STRP check blood sugars 3x/day GLUCOSE BLOOD 28986501648 Active Marvel MARROQUIN Active ACCU-CHEK ROSA UZMA Use device to check blood sugars BLOOD GLUCOSE MONITORING SUPPL 79004088268 No Longer Active Marvel MARROQUIN Active ACCU-CHEK ROSA INVITR STRP use strips with device to check blood sugars 3 times daily GLUCOSE BLOOD 44014092762 No Longer Active Marvel MARROQUIN Active VERAPAMIL HCL ER 180 MG ORAL CR-TABS 1 pill by mouth twice daily, for migraine prevention VERAPAMIL HCL 33627999774 Active Alina Castaneda MD PhD Active CYCLOBENZAPRINE HCL 10 MG TABS 1 tablet by mouth three times daily, scheduled CYCLOBENZAPRINE HCL 99595658221 No Longer Active Alina Castaneda MD PhD Active HUMALOG 100 UNIT/ML SOLN Take 20 units with breakfast, 10u with lunch and suppetr. INSULIN LISPRO (HUMAN) 85359146163 No Longer Active Alina Castaneda MD PhD Active TRUETEST TEST STRP check sugars 4x/day GLUCOSE BLOOD 72948520272 No Longer Active Alina Castaneda MD PhD Active MORPHINE SULFATE 30 MG TABS 1 pill by mouth twice daily, for pain MORPHINE SULFATE 29243298211 Active Mima Erazo [employer] Active ACYCLOVIR 400 MG ORAL TABS 1 pill three times daily x 5 days, for cold sore outbreak ACYCLOVIR 00001717392 No Longer Active Alina Castaneda MD PhD Active PENICILLIN V POTASSIUM 500 MG TABS 1 pill by mouth three times daily PENICILLIN V POTASSIUM 01557231781 No Longer Active Alina Castaneda MD PhD Active UROXATRAL 10 MG [id number]-URY Take 1 tablet by mouth daily ALFUZOSIN HCL 25999725636 No Longer Active Alina Castaneda MD PhD Active THIOTHIXENE 5 MG CAPS by mouth twice a day THIOTHIXENE 00799237508 No Longer Active Alina Castaneda MD PhD Active ZYPREXA 7.5 MG TABS 1 at HS OLANZAPINE 14470500171 No Longer Active Alina Castaneda MD PhD Active BD INSULIN SYRINGE 28G X 1/2" 1 ML MISC 1 four times per day INSULIN SYRINGE-NEEDLE U-100 52161331294 Active Marvel MARROQUIN Active DETROL LA 4 MG [id number]-XPJ Take 1 tablet by mouth daily TOLTERODINE TARTRATE 12347316952 No Longer Active Alina Castaneda MD PhD Active TERESE CONTOUR TEST STRP monitor blood sugars 3x/day GLUCOSE BLOOD 15891710806 No Longer Active Alina Castaneda MD PhD Active EQL TRUETEST TEST STRP Test blood sugar TID GLUCOSE BLOOD 68857619766 No Longer Active Alina Castaneda MD PhD Active FLUTICASONE PROPIONATE 50 MCG/ACT SUSP 2 sprays each nostril qDay x 30 days FLUTICASONE PROPIONATE 04491932996 No Longer Active Alina Castaneda MD PhD Active IBUPROFEN 200 MG TABS 1 Q 6 hr. PRN IBUPROFEN 58830160560 No Longer Active Alina Castaneda MD PhD Active NIACIN ER 500 MG CR-TABS 4 qHS (for triglycerides) NIACIN 59488623445 No Longer Active Alina Castaneda MD PhD Active ALFUZOSIN HCL ER 10 MG [id number]-LEI 1 tablet daily ALFUZOSIN HCL 20675920732 Active Vanessa Hickey MD Active SAPHRIS 5 MG SUBL by mouth twice a day ASENAPINE MALEATE 49537395117 No Longer Active Marvel MARROQUIN Active ACETAMINOPHEN 500 MG TABS 2 Q 6 hr. PRN ACETAMINOPHEN 60826753200 No Longer Active Marvel MARROQUIN Active ORPHENADRINE CITRATE ER 100 MG [id number] 1 every 12 hr. as needed ORPHENADRINE CITRATE 71040545734 No Longer Active Alina Castaneda MD PhD Active NIACIN CR 500 MG CR-TABS 2 qHS NIACIN 25083925470 No Longer Active Alina Castaneda MD PhD Active AMOXICILLIN 500 MG CAPS 2 po BID x 10 days AMOXICILLIN 00187397907 No Longer Active Alina Castaneda MD PhD Active HYDROCODONE-ACETAMINOPHEN 7.5-325 MG TABS 1 four times a day as needed for pain HYDROCODONE-ACETAMINOPHEN 88369991508 No Longer Active Alina Castaneda MD PhD Active DOXEPIN HCL 10 MG CAPS Take 1 tablet by mouth daily DOXEPIN HCL 30952345236 No Longer Active Salina Han A Active NAVANE 10 MG CAPS 1/2 tablet twice a day THIOTHIXENE No Longer Active Salina Han A Active CYCLOBENZAPRINE HCL 10 MG TABS 1/2 tablet by mouth every 8 hours as needed for muscle spasms CYCLOBENZAPRINE HCL 39653388494 No Longer Active Alina Castaneda MD PhD Active BACTROBAN 2 % CREAM apply to ear and nose twice daily MUPIROCIN CALCIUM 45666470366 No Longer Active Alina Castaneda MD PhD Active HYDROCODONE-ACETAMINOPHEN 5-325 MG TABS take one tablet by mouth every four hours as needed for pain HYDROCODONE-ACETAMINOPHEN 21084802191 No Longer Active Alina Castaneda MD PhD Active ZOLPIDEM TARTRATE 10 MG TABS take at bedtime ZOLPIDEM TARTRATE 80176397101 Active Alina Castaneda MD PhD Active ZYPREXA 5 MG TABS take one tablet by mouth every evening OLANZAPINE 98033714162 No Longer Active lAina Castaneda MD PhD Active ALBUTEROL SULFATE 0.083 % NEBU SOLN one vial per nebulizer TID and PRN cough/ soa ALBUTEROL SULFATE 56906415556 No Longer Active Alina Castaneda MD PhD Active GUAIFENESIN 600 MG [id number]-DFA 1 tablet by mouth twice daily if needed for cough GUAIFENESIN 92497700793 No Longer Active Marvel MARROQUIN Active AZITHROMYCIN 500 MG SOLR 1 po q day AZITHROMYCIN 61559939303 No Longer Active Alina Castaneda MD PhD Active PROMETHAZINE-CODEINE 6.25-10 MG/5ML SYRP 1 tsp po q 6 hours prn cough PROMETHAZINE-CODEINE 01061842199 No Longer Active Alina Castaneda MD PhD Active CEFDINIR 300 MG CAPS by mouth twice a day CEFDINIR 40703941303 No Longer Active Alina Castaneda MD PhD Active METFORMIN HCL 500 MG [id number] Take 3 tablets by mouth everyday METFORMIN HCL 23593159610 No Longer Active Alina Castaneda MD PhD Active LEVEMIR 100 UNIT/ML SOLN 90 units SQ qHS INSULIN DETEMIR 89057827387 No Longer Active Marvel MARROQUIN Active TOPROL XL 100 MG [id number]-ZKH 1 @ HS METOPROLOL SUCCINATE 37842494660 No Longer Active Marvel MARROQUIN Active ALLOPURINOL 300 MG TABS Take one by mouth daily ALLOPURINOL 94739190477 Active Alina Castaneda MD PhD Active ZYPREXA 10 MG TABS Take one by mouth daily OLANZAPINE 91611298006 No Longer Active Alina Castaneda MD PhD Active NOVOLOG 100 UNIT/ML SOLN 40 units with every meal INSULIN ASPART 40748778038 No Longer Active Alina Castaneda MD PhD Active VERAPAMIL HCL CR 120 MG TAB CR 1 qPM VERAPAMIL HCL 77779293412 No Longer Active Salina Emely ROJAS Active ZYPREXA 15 MG TABS Take 1 tablet by mouth daily OLANZAPINE 28271614694 No Longer Active Marvel MARROQUIN Active LISINOPRIL 20 MG TABS 1 BID LISINOPRIL 29393252238 Active Alina Castaneda MD PhD Active ALBUTEROL SULFATE (2.5 MG/3ML) 0.083% NEBU 1 neb tid and prn cough ALBUTEROL SULFATE 63698257930 No Longer Active Alina Castaneda MD PhD Active TRAVATAN Z 0.004 % SOLN 1 gtt each eye daily TRAVOPROST 53195472659 Active CRYSTAL Suarez Active LANTUS 100 UNIT/ML SOLN 60 units sq q hs INSULIN GLARGINE 73753342017 No Longer Active CRYSTAL Suarez Active ALBUTEROL SULFATE (2.5 MG/3ML) 0.083% NEBU 1 neb tid and prn cough ALBUTEROL SULFATE (2.5 MG/3ML) 0.083% NEBU 338992 ALBUTEROL SULFATE Inactive ZYPREXA 15 MG TABS Take 1 tablet by mouth daily ZYPREXA 15 MG TABS 027857 OLANZAPINE Inactive VERAPAMIL HCL CR 120 MG TAB CR 1 qPM VERAPAMIL HCL CR 120 MG TAB CR VERAPAMIL HCL Inactive ZYPREXA 10 MG TABS Take one by mouth daily ZYPREXA 10 MG TABS 110760 OLANZAPINE Inactive TOPROL XL 100 MG [id number] 1 @ HS TOPROL XL 100 MG MU24B-LWE METOPROLOL SUCCINATE Inactive LEVEMIR 100 UNIT/ML SOLN 90 units SQ qHS LEVEMIR 100 UNIT/ML SOLN INSULIN DETEMIR Inactive PROMETHAZINE-CODEINE 6.25-10 MG/5ML SYRP 1 tsp po q 6 hours prn cough PROMETHAZINE-CODEINE 6.25-10 MG/5ML SYRP 713753 PROMETHAZINE- CODEINE Inactive GUAIFENESIN 600 MG SI33I-SQX 1 tablet by mouth twice daily if needed for cough GUAIFENESIN 600 MG [id number]-JJP GUAIFENESIN Inactive ALBUTEROL SULFATE 0.083 % NEBU SOLN one vial per nebulizer TID and PRN cough/ soa ALBUTEROL SULFATE 0.083 % NEBU SOLN 723708 ALBUTEROL SULFATE Inactive ZYPREXA 5 MG TABS take one tablet by mouth every evening ZYPREXA 5 MG TABS 634752 OLANZAPINE Inactive HYDROCODONE-ACETAMINOPHEN 5-325 MG TABS take one tablet by mouth every four hours as needed for pain HYDROCODONE-ACETAMINOPHEN 5-325 MG TABS 146173 HYDROCODONE-ACETAMINOPHEN Inactive BACTROBAN 2 % CREAM apply to ear and nose twice daily BACTROBAN 2 % CREAM 537980 MUPIROCIN CALCIUM Inactive CYCLOBENZAPRINE HCL 10 MG TABS 1/2 tablet by mouth every 8 hours as needed for muscle spasms CYCLOBENZAPRINE HCL 10 MG TABS 835400 CYCLOBENZAPRINE HCL Inactive NAVANE 10 MG CAPS 1/2 tablet twice a day NAVANE 10 MG CAPS THIOTHIXENE Inactive DOXEPIN HCL 10 MG CAPS Take 1 tablet by mouth daily DOXEPIN HCL 10 MG CAPS 6959452 DOXEPIN HCL Inactive HYDROCODONE-ACETAMINOPHEN 7.5-325 MG TABS 1 four times a day as needed for pain HYDROCODONE-ACETAMINOPHEN 7.5-325 MG TABS 585747 HYDROCODONE-ACETAMINOPHEN Inactive NIACIN CR 500 MG CR-TABS 2 qHS NIACIN CR 500 MG CR- TABS NIACIN Inactive ORPHENADRINE CITRATE ER 100 MG IN25P-FUG 1 every 12 hr. as needed ORPHENADRINE CITRATE ER 100 MG NI65T-GEC ORPHENADRINE CITRATE Inactive ACETAMINOPHEN 500 MG TABS 2 Q 6 hr. PRN ACETAMINOPHEN 500 MG TABS 329333 ACETAMINOPHEN Inactive SAPHRIS 5 MG SUBL by mouth twice a day SAPHRIS 5 MG SUBL ASENAPINE MALEATE Inactive NIACIN ER 500 MG CR-TABS 4 qHS (for triglycerides) NIACIN ER 500 MG CR-TABS NIACIN Inactive IBUPROFEN 200 MG TABS 1 Q 6 hr. PRN IBUPROFEN 200 MG TABS 008070 IBUPROFEN Inactive FLUTICASONE PROPIONATE 50 MCG/ACT SUSP 2 sprays each nostril qDay x 30 days FLUTICASONE PROPIONATE 50 MCG/ACT SUSP 876930 FLUTICASONE PROPIONATE Inactive EQL TRUETEST TEST STRP Test blood sugar TID EQL TRUETEST TEST STRP GLUCOSE BLOOD Inactive TERESE CONTOUR TEST STRP monitor blood sugars 3x/day TERESE CONTOUR TEST STRP GLUCOSE BLOOD Inactive DETROL LA 4 MG CO24N-FLG Take 1 tablet by mouth daily DETROL LA 4 MG DA36S-KEJ TOLTERODINE TARTRATE Inactive ZYPREXA 7.5 MG TABS 1 at HS ZYPREXA 7.5 MG TABS 041339 OLANZAPINE Inactive THIOTHIXENE 5 MG CAPS by mouth twice a day THIOTHIXENE 5 MG CAPS 235047 THIOTHIXENE Inactive UROXATRAL 10 MG SO47Q-EDX Take 1 tablet by mouth daily UROXATRAL 10 MG [id number]-YVZ ALFUZOSIN HCL Inactive ACYCLOVIR 400 MG ORAL TABS 1 pill three times daily x 5 days, for cold sore outbreak ACYCLOVIR 400 MG ORAL TABS 717572 ACYCLOVIR Inactive TRUETEST TEST STRP check sugars 4x/day TRUETEST TEST STRP GLUCOSE BLOOD Inactive HUMALOG 100 UNIT/ML SOLN Take 20 units with breakfast, 10u with lunch and suppetr. HUMALOG 100 UNIT/ML SOLN INSULIN LISPRO ( HUMAN) Inactive CYCLOBENZAPRINE HCL 10 MG TABS 1 tablet by mouth three times daily, scheduled CYCLOBENZAPRINE HCL 10 MG TABS 195632 CYCLOBENZAPRINE HCL Inactive ACCU-CHEK ROSA INVITR STRP use strips with device to check blood sugars 3 times daily ACCU-CHEK ROSA INVITR STRP GLUCOSE BLOOD Inactive ACCU-CHEK ROSA UZMA Use device to check blood sugars ACCU-CHEK ROSA UZMA BLOOD GLUCOSE MONITORING SUPPL Inactive FLUVOXAMINE MALEATE 100 MG ORAL TABS Take 1/2 tab at noon FLUVOXAMINE MALEATE 100 MG ORAL TABS 758625 FLUVOXAMINE MALEATE Inactive FLUVOXAMINE MALEATE 100 MG TABS Take one (1) tablet by mouth am, 1/2 at noon FLUVOXAMINE MALEATE 100 MG TABS 666075 FLUVOXAMINE MALEATE Inactive BACTROBAN 2 % CREAM Apply to affected area BID for up to 10 days BACTROBAN 2 % CREAM 375578 MUPIROCIN CALCIUM Inactive NOVOFINE 32G X 6 MM MISC use one four times per day NOVOFINE 32G X 6 MM MISC INSULIN PEN NEEDLE Inactive TRAZODONE HCL 100 MG ORAL TABS 1 tab by mouth for sleep TRAZODONE HCL 100 MG ORAL TABS 935594 TRAZODONE HCL Inactive LOVAZA 1 GM CAPS 4 daily (for triglycerides) LOVAZA 1 GM CAPS 631788 VPGFD-6-RPYY ETHYL ESTERS Inactive METFORMIN HCL ER 500 MG FU06E-CGY Take three tablets by mouth everyday METFORMIN HCL ER 500 MG RD11G-DXB METFORMIN HCL Inactive METOPROLOL SUCCINATE 100 MG AU75F-BPT 1 by mouth daily for blood pressure METOPROLOL SUCCINATE 100 MG SQ76K-EHS METOPROLOL SUCCINATE Inactive AMITIZA 24 MCG ORAL CAPS Take one capsule BID for constipation. AMITIZA 24 MCG ORAL CAPS LUBIPROSTONE Inactive TOLTERODINE TARTRATE 2 MG TABS 1 pill twice daily, for bladder TOLTERODINE TARTRATE 2 MG TABS 441632 TOLTERODINE TARTRATE Inactive CEFDINIR 300 MG CAPS by mouth twice a day CEFDINIR 300 MG CAPS 328331 CEFDINIR Inactive AZITHROMYCIN 500 MG SOLR 1 po q day AZITHROMYCIN 500 MG SOLR 42688222162 AZITHROMYCIN Inactive AMOXICILLIN 500 MG CAPS 2 po BID x 10 days AMOXICILLIN 500 MG CAPS 464528 AMOXICILLIN Inactive PENICILLIN V POTASSIUM 500 MG TABS 1 pill by mouth three times daily PENICILLIN V POTASSIUM 500 MG TABS 049582 PENICILLIN V POTASSIUM Inactive KEFLEX 500 MG CAP 1 po BID x 7 days KEFLEX 500 MG CAP 463426 CEPHALEXIN Inactive Immunizations Vaccine Administration Date Value [...] Fluvirin, Fluarix, Agriflu(>=18 yo)) Fluzone (>3 yrs.) [[id number]] Influenza, seasonal, injectable pneumococcal immunization administered Pneumovax [...] MICROALBUMIN - Chemistry sodium, serum 137 mmol/L 013-187 0639/05/19 potassium, serum 5.2 mmol/L 3.5-5.2 chloride, serum [...] Panel - Chemistry sodium, serum 137 mmol/L 357-358 5053/10/12 potassium, serum 4.8 mmol/L 3.5-5.2 chloride, serum 102 mmol/L 98-107 carbon dioxide, venous blood 27.6 mmol/L 21.0-32.0 blood glucose 168 mg/dL 65-110 calcium, serum 9.0 mg/dL 8.5-10.1 urea nitrogen, blood 15 mg/dL 7-18 creatinine, serum 1.04 mg/dL 0.55-1.30 sodium, serum 138 mmol/L 531-883 9525/11/11 potassium, serum 4.7 mmol/L 3.5-5.2 chloride, serum [...] % 11.6-14.8 platelet count 252 10^3/MM^3 10*3/mm3 646-024 4390/10/12 leukocyte count, blood 5.8 10^3/MM^3 10*3/mm3 4.6-10.2 [...] 240 10^3/MM^3 10*3/mm3 142-424 Lab Report: Chlamydia/GC APTIMA/42920, HIV-1/2 Agn/Dominga/21519, RPR (DX) W ... - Chemistry hepatitis B surface antigen NON-REACTIVE NON-REACTIVE Lab Report: Chlamydia/GC APTIMA/18725, HIV-1/2 Agn/Dominga/70473, RPR (DX) W ... - Lab chlamydia DNA probe NOT DETECTED NOT DETECTED Lab Report: Chlamydia/GC APTIMA/[id number], HIV-1/2 Agn/Dominga/81382, RPR (DX) W ... - Microbiology Neisseria gonorrhoeae DNA probe NOT DETECTED NOT DETECTED Lab Report: Chlamydia/GC APTIMA/55137, HIV-1/2 Agn/Dominga/90572, RPR (DX) W ... - Serology rapid plasma reagin antibody titer NON-REACTIVE NON-REACTIVE Lab Report: HGBA1C - Chemistry hemoglobin A1C, blood, as % of total hemoglobin 6.1 % 4.3-6.0 hemoglobin A1C, blood, as % of total hemoglobin 6.3 % 4.3-6.0 Lab Report: Lipid Panel, HEPATIC PANEL, MICROALBUMIN, CBC - Chemistry cholesterol, serum 131 mg/dL 085-091 9098/06/03 alanine aminotransferase (SGPT), serum 112 U/L 12-78 [...] Acid - Chemistry cholesterol, serum 142 mg/dL 278-471 6248/06/26 triglyceride, serum, fasting 272 mg/dL 30-200 HDL [...] negative urinalysis, routine Clean Catch Office Visit: Diabetes Visit - Chemistry cholesterol, [...] Code Encounter Date Provider Facility [facility]-[id number] Level 3 Est. Patient 14:39:00 LICENSED PRACTICAL NURSE Vanessa Hickey MD [facility]-04584 Level 2 Est. Patient 18:43:34 CDT Mima Erazo [facility]-57896 Level 3 Est. Patient 16:22:09 CDT Cherelle Avila [facility]-29618 Level 4 Est. Patient 17:55:14 CDT Mima Erazo [facility] CPT-11013 Level 2 Est. Patient 17:13:21 CDT Alina Castaneda MD PhD [facility]-99968 Level 3 Est. Patient 14:46:15 CDT Vanessa Hickey MD [facility]72982 Level 3 Est. Patient 09:34:56 CDT Alina Castaneda MD PhD [facility]26202 Level 3 Est. Patient 21:40:19 CDT Mima Erazo [facility]-05774 Level 3 Est. Patient 09:26:40 CDT Marvel Charles [facility]-34301 Level 3 Est. Patient 12:36:43 CDT Vanessa Hickey MD [facility]78609 Level 3 Est. Patient 12:57:49 CDT Vanessa Hickey MD [facility]53648 Level 3 Est. Patient 00:28:25 CDT Alina Castaneda MD [facility]-59039 Level 2 Est. Patient 12:52:14 CDT Alina Castaneda MD [facility]-37770 Level 3 Est. Patient 11:51:18 LICENSED PRACTICAL NURSE Alina Castaneda MD [facility]-19286 Level 3 Est. Patient 10:09:22 LICENSED PRACTICAL NURSE Alina Castaneda MD [facility]-80390 Level 3 Est. Patient 14:36:26 LICENSED PRACTICAL NURSE Marvel Charles [facility]-84922 Level 3 Est. Patient 13:34:47 LICENSED PRACTICAL NURSE Alina Castaneda MD [facility]98638 Level 3 Est. Patient 19:52:08 LICENSED PRACTICAL NURSE Alina Castaneda MD [facility]-84382 Level 3 Est. Patient 10:01:[address] [facility]-44720 Level 3 Est. Patient 21:54:06 CDT Vanessa Hickey MD [facility]-55575 Level 3 Est. Patient 08:54:46 CDT Alina Castaneda MD [facility]-64532 Level 3 Est. Patient 09:32:11 CDT Marvel Charles [facility]-01001 Level 3 Est. Patient 12:02:49 CDT Alina Castaneda MD [facility]-50660 Level 3 Est. Patient 19:17:33 CDT Alina Castaneda MD [facility]-57120 Level 3 Est. Patient 13:19:10 CDT Marvel Charles [facility]-30055 Level 3 Est. Patient 08:20:05 CDT Alina Castaneda MD [facility]09832 Level 3 Est. Patient 15:17:18 CDT Alina Castaneda MD [facility]-67527 Level 3 Est. Patient 14:25:36 LICENSED PRACTICAL NURSE Marvel Charles [facility] CPT-45510 Level 3 Est. Patient 10:09:15 LICENSED PRACTICAL NURSE Marvel Charles [facility] CPT-60309 Level 3 Est. Patient 21:28:43 CDT Alina Castaneda MD [facility]-55182 Level 3 Est. Patient 15:20:11 CDT Marvel Thurstonestela [facility]-44577 Level 4 Est. Patient 19:08:12 CDT Alina Castaneda MD [facility]-95391 Level 3 Est. Patient 15:06:39 [facility]-09940 Level 4 Est. Patient 17:48:15 CDT Alina Castaneda MD [facility]-25135 Level 3 Est. Patient 14:53:49 CDT Alina Castaneda MD [facility]-77341 Level 3 Est. Patient 09:35:16 CDT Alina Castaneda MD [facility]-92074 Level 3 Est. Patient 12:23:22 CDT Alina Castaneda MD [facility] CPT-35246 Level 3 Est. Patient 16:19:15 CDT Alina Castaneda MD [facility]-59254 Level 3 Est. Patient 21:39:56 LICENSED PRACTICAL NURSE Alina Castaneda MD [facility]-83860 Level 4 Est. Patient 14:12:56 LICENSED PRACTICAL NURSE Alina Castaneda MD [facility]-55737 Level 2 Est. Patient 15:34:57 LICENSED PRACTICAL NURSE Alina Castaneda MD [facility]-08333 Level 3 Est. Patient 12:17:04 LICENSED PRACTICAL NURSE Alina Castaneda MD [facility]-17819 Level 3 Est. Patient 09:18:18 LICENSED PRACTICAL NURSE [facility]-84853 Level 2 Est. Patient 21:50:24 CDT Alina Castaneda MD [facility]-65265 Level 3 Est. Patient 09:17:28 CDT [facility]-47972 Level 4 Est. Patient 18:54:02 CDT Alina Castaneda MD [facility]-86421 Level 3 Est. Patient 10:47:10 CDT Alina Castaneda MD [facility]-41621 Level 3 Est. Patient 09:22:20 CDT [facility]-00023 Level 3 Est. Patient 16:39:43 CDT [facility]-26482 Level 3 Est. Patient 16:05:16 CDT Alina Castaneda MD [facility]-34025 Level 3 Est. Patient 00:29:15 CDT Alina Castaneda MD [facility]-83421 Level 3 Est. Patient 10:49:22 LICENSED PRACTICAL NURSE [facility]69755 Level 3 Est. Patient 21:30:19 LICENSED PRACTICAL NURSE Alina Castaneda MD [facility]-92627 Level 4 Est. Patient 17:04:11 LICENSED PRACTICAL NURSE [facility]-21165 Level 3 Est. Patient 15:34:11 LICENSED PRACTICAL NURSE [facility] CPT-87912 Level 2 Est. Patient 12:51:58 LICENSED PRACTICAL NURSE Alina Castaneda MD PhD [facility] CPT-13954 Level 3 Est. Patient 13:20:01 LICENSED PRACTICAL NURSE Alina Castaneda MD PhD [facility] CPT-22764 Level 3 Est. Patient 09:23:35 CDT Alina Castaneda MD PhD [facility] Procedures Code Procedure Name Date Entry Date Standard Description CPT-90714 Bladder Scan 14:39:01 LICENSED PRACTICAL NURSE CPT-TCMM Transitional Care Mgmt-Moderate 10:30:19 LICENSED PRACTICAL NURSE CPT-61552 Bladder Scan 12:36:44 CDT CPT-19738 Bladder Scan 21:54:06 CDT CPT-G0008 Administration of Influenza Virus Vaccine 13:05:26 CDT CPT-49399 Fluzone Quadrivalent Intramuscular Suspension 0.5 ML 13: 05:26 CDT CPT-90078 Administration single or combination vaccine inc oral 11 :49:51 CDT CPT-88479 Pneumovax 11:49:51 CDT CPT-30844 Ribs unilateral 2V 12:37:22 LICENSED PRACTICAL NURSE CPT-43097 Chest 2V Frontal and Lat 17:15:26 CDT CPT-12352 Abx/Therapy Injection 18:54:02 CDT CPT-J0696 Rocephin 1000 mg (Ceftriaxone) 16:00:32 CDT CPT-81165 Chest 2V Frontal and Lat 15:26:45 CDT CPT-60660 Chest 2V Frontal and Lat 10:23:27 CDT CPT-65027 Venipuncture Draw Fee 10:11:00 CDT CPT-09456 Administration single or combination vaccine inc oral 11 :56:38 CDT CPT-31196 Influenza split virus > age 3 11:56:38 CDT CPT-60317 Venipuncture Draw Fee 08:49:54 LICENSED PRACTICAL NURSE CPT-06328 EKG Trac and Interp 17:54:19 LICENSED PRACTICAL NURSE
--- OUTSIDE RECORDS SUMMARY | 2018-07-02 18:10 | XMS REPORT | Clinical Summary ---
[...] of complication ANXIETY DISORDER 300.00 Active Alina aCstaneda MD PhD Anxiety state, unspecified DIABETES, TYPE 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 Erazo [employer] Benign paroxysmal positional vertigo Vertigo, benign paroxysmal position 386.11 Inactive Mima Erazo [employer] Benign paroxysmal positional vertigo High-risk sexual behavior V69.2 Active Alina Castaneda MD PhD High-risk sexual behavior Erectile dysfunction 302.72 Active Alina Castaneda MD PhD Psychosexual dysfunction with inhibited sexual excitement Constipation 564.00 Active Alina Castaneda MD PhD Constipation, unspecified Skin lesion 709.9 Active Alina aCstaneda MD PhD Unspecified disorder of skin and subcutaneous tissue Malaise and fatigue 780.79 Active Cherelle Speaks [employer]BER Other malaise and fatigue Diarrhea 787.91 Active Cherelle Speaks [employer] MEMBER Diarrhea PHARYNGITIS 462 Active Cherelle Speaks [employer] MEMBER Acute pharyngitis Colitis 558.9 Active Mima Erazo [employer] MEMBER Other and unspecified noninfectious gastroenteritis and colitis WOUND, OPEN, NOSE ICD-873.20 Inactive Alina Castaneda MD PhD DIABETES, TYPE 2 ICD-250.00 Inactive Alina Castaneda MD PhD HYPERTENSION ICD-401.9 Inactive Alina Castaneda MD PhD URI ICD-465.9 Inactive Alina Castaneda MD PhD CHEST PAIN ICD-786.50 Inactive Alina Castaneda MD PhD FH STROKE ICD-V17.1 Inactive Marvel Charles PRESIDENT & CEO FATIGUE ICD-780.79 Inactive Alina Castaneda MD PhD [...] x 1 week then daily FLUTICASONE PROPIONATE 16245195068 Active Mima Yokum [employer] MEMBER Active BD PEN NEEDLE MINI U/F 31G X 5 MM MISC 4 a day INSULIN PEN NEEDLE 10546804493 Active Maliheh Ziglari PRESIDENT & CEO Active AMITIZA 24 MCG ORAL CAPS Take one capsule BID for constipation LUBIPROSTONE 67731717996 Active Mima Yokum [employer]BER Active LEVEMIR FLEXTOUCH 100 UNIT/ML SC SOPN 75 units SQ each evening, for diabetes INSULIN DETEMIR 15013984061 Active Mima Yokum [employer] MEMBER Active TRUEPLUS LANCETS 30G MISC 3 a day LANCETS 72127717135 Active Malihnivia Mackenzieglari PRESIDENT & CEO Active TOLTERODINE TARTRATE 2 MG TABS 1 pill twice daily, for bladder TOLTERODINE TARTRATE 37318421963 No Longer Active Vanessa Hcikey MD Active AMITIZA 24 MCG ORAL CAPS Take one capsule BID for constipation. LUBIPROSTONE 74796268904 No Longer Active Vanessa Hickey MD Active LOMOTIL 2.5-0.025 MG ORAL TABS take 1-2 tabs PO after each stool, no more than 8 in 24 hours DIPHENOXYLATE-ATROPINE 84327643684 Active Grace Azam RMA Active FLUVOXAMINE MALEATE 100 MG ORAL TABS take one tab every AM et HS, and take 1/ 2 tab at noon FLUVOXAMINE MALEATE 60699784990 Active Grace Azam RMA Active METOPROLOL SUCCINATE 100 MG [id number] 1 by mouth daily for blood pressure METOPROLOL SUCCINATE 05498625437 No Longer Active Grace Azam RMA Active METFORMIN HCL ER 500 MG EB16K-TMM Take three tablets by mouth everyday METFORMIN HCL 37569172321 No Longer Active Grace Azam RMA Active LOVAZA 1 GM CAPS 4 daily (for triglycerides) OMEGA-3- ACID ETHYL ESTERS 38487252761 No Longer Active Grace Aazm RMA Active TRAZODONE HCL 100 MG ORAL TABS 1 tab by mouth for sleep TRAZODONE HCL 90410340175 No Longer Active Grace Azam RMA Active NOVOFINE 32G X 6 MM MISC use one four times per day INSULIN PEN NEEDLE 57688093766 No Longer Active Grace Azam RMA Active BACTROBAN 2 % CREAM Apply to affected area BID for up to 10 days MUPIROCIN CALCIUM 59163777660 No Longer Active Grace Azam RMA Active ZOFRAN 4 MG TABS 1 po q4hr PRN Nausea ONDANSETRON HCL 68287404566 Active Salina Ervinford RMA Active KEFLEX 500 MG CAP 1 po BID x 7 days CEPHALEXIN 95371774396 No Longer Active Cherelle Avila [employer]BER Active FLUVOXAMINE MALEATE 100 MG TABS Take one (1) tablet by mouth am, 1/2 at noon FLUVOXAMINE MALEATE 54084759718 No Longer Active Mima Erazo [employer] MEMBER Active CORICIDIN HBP CONGESTION/COUGH 10-200 MG ORAL CAPS Take as directed on box as needed for cold/flu symptoms DEXTROMETHORPHAN-GUAIFENESIN 26586576860 Active Cherelle Avila APRN Active OMEGA-3 300 MG ORAL CAPS 4 caps by mouth daily OMEGA-3 FATTY ACIDS 10856377996 Active Mima Erazo [employer] MEMBER Active FLUVOXAMINE MALEATE 100 MG ORAL TABS Take 1/2 tab at noon FLUVOXAMINE MALEATE 58660678511 No Longer Active Cherelle Avila [employer]CH[employer] FACULTY MEMBER Active [facility] LUBRICANT EYE DROPS 0.4-0.3 % OPHTH SOLN POLYETHYL GLYCOL-PROPYL GLYCOL 46573177688 Active Mima Erazo [employer] MEMBER Active CLONAZEPAM 1 MG TABS 1/2 pill by mouth three times daily CLONAZEPAM 43846759741 Active Mima Erazo [employer] MEMBER Active MIRALAX POWD 17g by mouth daily, for constipation POLYETHYLENE GLYCOL 3350 01771974393 Active Alina Castaneda MD PhD Active HYDROCODONE-ACETAMINOPHEN 5-325 MG TABS 2 tabs by mouth three times daily for pain HYDROCODONE-ACETAMINOPHEN 25663207559 Active Mima Erazo [employer] MEMBER Active HUMALOG KWIKPEN 100 UNIT/ML SC SOPN 20 units with breakfast, 10 units with lunch, 10 units with dinner, for diabetes INSULIN LISPRO (HUMAN ) 95861676351 Active Alina Castaneda MD PhD Active LATUDA 120 MG ORAL TABS 1 pill by mouth nightly LURASIDONE HCL 09197255772 Active Alina Castaneda MD PhD Active COLACE 100 MG CAPS 1 pill by mouth twice daily, for constipation DOCUSATE SODIUM 85151829492 Active Alina Castaneda MD PhD Active TRUETEST TEST STRP check blood sugars 3x/day GLUCOSE BLOOD 32223224081 Active Marvel MARROQUIN Active ACCU-CHEK ROSA UZMA Use device to check blood sugars BLOOD GLUCOSE MONITORING SUPPL 64335736990 No Longer Active Marvel MARROQUIN Active ACCU-CHEK ROSA INVITR STRP use strips with device to check blood sugars 3 times daily GLUCOSE BLOOD 13177082276 No Longer Active Marvel MARROQUIN Active VERAPAMIL HCL ER 180 MG ORAL CR-TABS 1 pill by mouth twice daily, for migraine prevention VERAPAMIL HCL 17399205255 Active Alina Castaneda MD PhD Active CYCLOBENZAPRINE HCL 10 MG TABS 1 tablet by mouth three times daily, scheduled CYCLOBENZAPRINE HCL 61091717304 No Longer Active Alina Castaneda MD PhD Active HUMALOG 100 UNIT/ML SOLN Take 20 units with breakfast, 10u with lunch and suppetr. INSULIN LISPRO (HUMAN) 10432776918 No Longer Active Alina Castaneda MD PhD Active TRUETEST TEST STRP check sugars 4x/day GLUCOSE BLOOD 81198133210 No Longer Active Alina Castaneda MD PhD Active MORPHINE SULFATE 30 MG TABS 1 pill by mouth twice daily, for pain MORPHINE SULFATE 34192692850 Active Mima Erazo [employer] MEMBER Active ACYCLOVIR 400 MG ORAL TABS 1 pill three times daily x 5 days, for cold sore outbreak ACYCLOVIR 76736878799 No Longer Active Alina Castaneda MD PhD Active PENICILLIN V POTASSIUM 500 MG TABS 1 pill by mouth three times daily PENICILLIN V POTASSIUM 14941884442 No Longer Active Alina Castaneda MD PhD Active UROXATRAL 10 MG [id number]-TSN Take 1 tablet by mouth daily ALFUZOSIN HCL 16083714691 No Longer Active Alina Castaneda MD PhD Active THIOTHIXENE 5 MG CAPS by mouth twice a day THIOTHIXENE 88403746475 No Longer Active Alina Castaneda MD PhD Active ZYPREXA 7.5 MG TABS 1 at HS OLANZAPINE 29599983913 No Longer Active Alina Castaneda MD PhD Active BD INSULIN SYRINGE 28G X 1/2" 1 ML MISC 1 four times per day INSULIN SYRINGE-NEEDLE U-100 31122520427 Active Marvel MARROQUIN Active DETROL LA 4 MG LV51L-JSG Take 1 tablet by mouth daily TOLTERODINE TARTRATE 19193807716 No Longer Active Alina Castaneda MD PhD Active TERESE CONTOUR TEST STRP monitor blood sugars 3x/day GLUCOSE BLOOD 78917272095 No Longer Active Alina Castaneda MD PhD Active EQL TRUETEST TEST STRP Test blood sugar TID GLUCOSE BLOOD 30798076196 No Longer Active Alina Castaneda MD PhD Active FLUTICASONE PROPIONATE 50 MCG/ACT SUSP 2 sprays each nostril qDay x 30 days FLUTICASONE PROPIONATE 13195320901 No Longer Active Alina Castaneda MD PhD Active IBUPROFEN 200 MG TABS 1 Q 6 hr. PRN IBUPROFEN 31278573716 No Longer Active Alina Castaneda MD PhD Active NIACIN ER 500 MG CR-TABS 4 qHS (for triglycerides) NIACIN 92833077217 No Longer Active Alina Castanead MD PhD Active ALFUZOSIN HCL ER 10 MG [id number]-JMY 1 tablet daily ALFUZOSIN HCL 03077289425 Active Vanessa Hickey MD Active SAPHRIS 5 MG SUBL by mouth twice a day ASENAPINE MALEATE 51685108295 No Longer Active Marvel MARROUQIN Active ACETAMINOPHEN 500 MG TABS 2 Q 6 hr. PRN ACETAMINOPHEN 51143574617 No Longer Active Marvel MARROQUIN Active ORPHENADRINE CITRATE ER 100 MG [id number]-QJL 1 every 12 hr. as needed ORPHENADRINE CITRATE 71117813414 No Longer Active Alina Castaneda MD PhD Active NIACIN CR 500 MG CR-TABS 2 qHS NIACIN 30118630671 No Longer Active Alina Castaneda MD PhD Active AMOXICILLIN 500 MG CAPS 2 po BID x 10 days AMOXICILLIN 34408158381 No Longer Active Alina Castaneda MD PhD Active HYDROCODONE-ACETAMINOPHEN 7.5-325 MG TABS 1 four times a day as needed for pain HYDROCODONE-ACETAMINOPHEN 57750335479 No Longer Active Alina Castaneda MD PhD Active DOXEPIN HCL 10 MG CAPS Take 1 tablet by mouth daily DOXEPIN HCL 17894079994 No Longer Active Salina Han A Active NAVANE 10 MG CAPS 1/2 tablet twice a day THIOTHIXENE No Longer Active Salina Han A Active CYCLOBENZAPRINE HCL 10 MG TABS 1/2 tablet by mouth every 8 hours as needed for muscle spasms CYCLOBENZAPRINE HCL 40885986196 No Longer Active Alina Castaneda MD PhD Active BACTROBAN 2 % CREAM apply to ear and nose twice daily MUPIROCIN CALCIUM 10038181874 No Longer Active Alina Castaneda MD PhD Active HYDROCODONE-ACETAMINOPHEN 5-325 MG TABS take one tablet by mouth every four hours as needed for pain HYDROCODONE-ACETAMINOPHEN 43054835842 No Longer Active Alina Castaneda MD PhD Active ZOLPIDEM TARTRATE 10 MG TABS take at bedtime ZOLPIDEM TARTRATE 36622001607 Active Alina Castaneda MD PhD Active ZYPREXA 5 MG TABS take one tablet by mouth every evening OLANZAPINE 64474510902 No Longer Active Alina Castaneda MD PhD Active ALBUTEROL SULFATE 0.083 % NEBU SOLN one vial per nebulizer TID and PRN cough/ soa ALBUTEROL SULFATE 04917261396 No Longer Active Alina Castaneda MD PhD Active GUAIFENESIN 600 MG [id number]-FHL 1 tablet by mouth twice daily if needed for cough GUAIFENESIN 67946591861 No Longer Active Marvel MARROQUIN Active AZITHROMYCIN 500 MG SOLR 1 po q day AZITHROMYCIN 95431105143 No Longer Active Alina Castaneda MD PhD Active PROMETHAZINE-CODEINE 6.25-10 MG/5ML SYRP 1 tsp po q 6 hours prn cough PROMETHAZINE-CODEINE 99724428870 No Longer Active Alina Castaneda MD PhD Active CEFDINIR 300 MG CAPS by mouth twice a day CEFDINIR 53213465209 No Longer Active Alina Castaneda MD PhD Active METFORMIN HCL 500 MG BX93U-HNM Take 3 tablets by mouth everyday METFORMIN HCL 00423342133 No Longer Active Alina Castaneda MD PhD Active LEVEMIR 100 UNIT/ML SOLN 90 units SQ qHS INSULIN DETEMIR 86860510614 No Longer Active Marvel MARROQUIN Active TOPROL XL 100 MG [id number]-NMB 1 @ HS METOPROLOL SUCCINATE 45967612393 No Longer Active Marvel MARROQUIN Active ALLOPURINOL 300 MG TABS Take one by mouth daily ALLOPURINOL 14651565421 Active Mima Aguilarliudmila [employer] MEMBER Active ZYPREXA 10 MG TABS Take one by mouth daily OLANZAPINE 49920929737 No Longer Active Alina Castaneda MD PhD Active NOVOLOG 100 UNIT/ML SOLN 40 units with every meal INSULIN ASPART 31770249772 No Longer Active Alina Castaneda MD PhD Active VERAPAMIL HCL CR 120 MG TAB CR 1 qPM VERAPAMIL HCL 23880352688 No Longer Active Salina Emely ROJAS Active ZYPREXA 15 MG TABS Take 1 tablet by mouth daily OLANZAPINE 90124962954 No Longer Active Marvel MARROQUIN Active LISINOPRIL 20 MG TABS 1 BID LISINOPRIL 92457117222 Active Alina Castaneda MD PhD Active ALBUTEROL SULFATE (2.5 MG/3ML) 0.083% NEBU 1 neb tid and prn cough ALBUTEROL SULFATE 88318517238 No Longer Active Alina Castaneda MD PhD Active TRAVATAN Z 0.004 % SOLN 1 gtt each eye daily TRAVOPROST 60423622896 Active CRYSTAL Suarez Active LANTUS 100 UNIT/ML SOLN 60 units sq q hs INSULIN GLARGINE 45674264938 No Longer Active CRYSTAL Suarez Active ALBUTEROL SULFATE (2.5 MG/3ML) 0.083% NEBU 1 neb tid and prn cough ALBUTEROL SULFATE (2.5 MG/3ML) 0.083% NEBU 548756 ALBUTEROL SULFATE Inactive ZYPREXA 15 MG TABS Take 1 tablet by mouth daily ZYPREXA 15 MG TABS 166691 OLANZAPINE Inactive VERAPAMIL HCL CR 120 MG TAB CR 1 qPM VERAPAMIL HCL CR 120 MG TAB CR VERAPAMIL HCL Inactive ZYPREXA 10 MG TABS Take one by mouth daily ZYPREXA 10 MG TABS 828622 OLANZAPINE Inactive TOPROL XL 100 MG [id number]-XSR 1 @ HS TOPROL XL 100 MG SR01V-KAV METOPROLOL SUCCINATE Inactive LEVEMIR 100 UNIT/ML SOLN 90 units SQ qHS LEVEMIR 100 UNIT/ML SOLN INSULIN DETEMIR Inactive PROMETHAZINE-CODEINE 6.25-10 MG/5ML SYRP 1 tsp po q 6 hours prn cough PROMETHAZINE-CODEINE 6.25-10 MG/5ML SYRP 467906 PROMETHAZINE- CODEINE Inactive GUAIFENESIN 600 MG UM21S-XUX 1 tablet by mouth twice daily if needed for cough GUAIFENESIN 600 MG UM21S-CUE GUAIFENESIN Inactive ALBUTEROL SULFATE 0.083 % NEBU SOLN one vial per nebulizer TID and PRN cough/ soa ALBUTEROL SULFATE 0.083 % NEBU SOLN 108367 ALBUTEROL SULFATE Inactive ZYPREXA 5 MG TABS take one tablet by mouth every evening ZYPREXA 5 MG TABS 752726 OLANZAPINE Inactive HYDROCODONE-ACETAMINOPHEN 5-325 MG TABS take one tablet by mouth every four hours as needed for pain HYDROCODONE-ACETAMINOPHEN 5-325 MG TABS 676173 HYDROCODONE-ACETAMINOPHEN Inactive BACTROBAN 2 % CREAM apply to ear and nose twice daily BACTROBAN 2 % CREAM 062956 MUPIROCIN CALCIUM Inactive CYCLOBENZAPRINE HCL 10 MG TABS 1/2 tablet by mouth every 8 hours as needed for muscle spasms CYCLOBENZAPRINE HCL 10 MG TABS 070169 CYCLOBENZAPRINE HCL Inactive NAVANE 10 MG CAPS 1/2 tablet twice a day NAVANE 10 MG CAPS THIOTHIXENE Inactive DOXEPIN HCL 10 MG CAPS Take 1 tablet by mouth daily DOXEPIN HCL 10 MG CAPS 6012882 DOXEPIN HCL Inactive HYDROCODONE-ACETAMINOPHEN 7.5-325 MG TABS 1 four times a day as needed for pain HYDROCODONE-ACETAMINOPHEN 7.5-325 MG TABS 371144 HYDROCODONE-ACETAMINOPHEN Inactive NIACIN CR 500 MG CR-TABS 2 qHS NIACIN CR 500 MG CR- TABS NIACIN Inactive ORPHENADRINE CITRATE ER 100 MG EB92O-KQI 1 every 12 hr. as needed ORPHENADRINE CITRATE ER 100 MG [id number]-RZQ ORPHENADRINE CITRATE Inactive ACETAMINOPHEN 500 MG TABS 2 Q 6 hr. PRN ACETAMINOPHEN 500 MG TABS 113908 ACETAMINOPHEN Inactive SAPHRIS 5 MG SUBL by mouth twice a day SAPHRIS 5 MG SUBL ASENAPINE MALEATE Inactive NIACIN ER 500 MG CR-TABS 4 qHS (for triglycerides) NIACIN ER 500 MG CR-TABS NIACIN Inactive IBUPROFEN 200 MG TABS 1 Q 6 hr. PRN IBUPROFEN 200 MG TABS 848332 IBUPROFEN Inactive FLUTICASONE PROPIONATE 50 MCG/ACT SUSP 2 sprays each nostril qDay x 30 days FLUTICASONE PROPIONATE 50 MCG/ACT SUSP 550731 FLUTICASONE PROPIONATE Inactive EQL TRUETEST TEST STRP Test blood sugar TID EQL TRUETEST TEST STRP GLUCOSE BLOOD Inactive TERESE CONTOUR TEST STRP monitor blood sugars 3x/day TERESE CONTOUR TEST STRP GLUCOSE BLOOD Inactive DETROL LA 4 MG [id number]-KSP Take 1 tablet by mouth daily DETROL LA 4 MG [id number]-PXX TOLTERODINE TARTRATE Inactive ZYPREXA 7.5 MG TABS 1 at HS ZYPREXA 7.5 MG TABS 285255 OLANZAPINE Inactive THIOTHIXENE 5 MG CAPS by mouth twice a day THIOTHIXENE 5 MG CAPS 646748 THIOTHIXENE Inactive UROXATRAL 10 MG [id number]-BKV Take 1 tablet by mouth daily UROXATRAL 10 MG [id number]-KEM ALFUZOSIN HCL Inactive ACYCLOVIR 400 MG ORAL TABS 1 pill three times daily x 5 days, for cold sore outbreak ACYCLOVIR 400 MG ORAL TABS 593837 ACYCLOVIR Inactive TRUETEST TEST STRP check sugars 4x/day TRUETEST TEST STRP GLUCOSE BLOOD Inactive HUMALOG 100 UNIT/ML SOLN Take 20 units with breakfast, 10u with lunch and suppetr. HUMALOG 100 UNIT/ML SOLN INSULIN LISPRO ( HUMAN) Inactive CYCLOBENZAPRINE HCL 10 MG TABS 1 tablet by mouth three times daily, scheduled CYCLOBENZAPRINE HCL 10 MG TABS 374440 CYCLOBENZAPRINE HCL Inactive ACCU-CHEK ROSA INVITR STRP use strips with device to check blood sugars 3 times daily ACCU-CHEK ROSA INVITR STRP GLUCOSE BLOOD Inactive ACCU-CHEK ROSA UZMA Use device to check blood sugars ACCU-CHEK ROSA UZMA BLOOD GLUCOSE MONITORING SUPPL Inactive FLUVOXAMINE MALEATE 100 MG ORAL TABS Take 1/2 tab at noon FLUVOXAMINE MALEATE 100 MG ORAL TABS 457173 FLUVOXAMINE MALEATE Inactive FLUVOXAMINE MALEATE 100 MG TABS Take one (1) tablet by mouth am, 1/2 at noon FLUVOXAMINE MALEATE 100 MG TABS 950973 FLUVOXAMINE MALEATE Inactive BACTROBAN 2 % CREAM Apply to affected area BID for up to 10 days BACTROBAN 2 % CREAM 807790 MUPIROCIN CALCIUM Inactive NOVOFINE 32G X 6 MM MISC use one four times per day NOVOFINE 32G X 6 MM MISC INSULIN PEN NEEDLE Inactive TRAZODONE HCL 100 MG ORAL TABS 1 tab by mouth for sleep TRAZODONE HCL 100 MG ORAL TABS 707842 TRAZODONE HCL Inactive LOVAZA 1 GM CAPS 4 daily (for triglycerides) LOVAZA 1 GM CAPS 322966 DFAUJ-1-KOOM ETHYL ESTERS Inactive METFORMIN HCL ER 500 MG BQ57O-YFI Take three tablets by mouth everyday METFORMIN HCL ER 500 MG VP58Y-MQY METFORMIN HCL Inactive METOPROLOL SUCCINATE 100 MG ZS91L-SYX 1 by mouth daily for blood pressure METOPROLOL SUCCINATE 100 MG OM65Y-YGC METOPROLOL SUCCINATE Inactive AMITIZA 24 MCG ORAL CAPS Take one capsule BID for constipation. AMITIZA 24 MCG ORAL CAPS LUBIPROSTONE Inactive TOLTERODINE TARTRATE 2 MG TABS 1 pill twice daily, for bladder TOLTERODINE TARTRATE 2 MG TABS 800799 TOLTERODINE TARTRATE Inactive CEFDINIR 300 MG CAPS by mouth twice a day CEFDINIR 300 MG CAPS 100213 CEFDINIR Inactive AZITHROMYCIN 500 MG SOLR 1 po q day AZITHROMYCIN 500 MG SOLR 73942598140 AZITHROMYCIN Inactive AMOXICILLIN 500 MG CAPS 2 po BID x 10 days AMOXICILLIN 500 MG CAPS 880613 AMOXICILLIN Inactive PENICILLIN V POTASSIUM 500 MG TABS 1 pill by mouth three times daily PENICILLIN V POTASSIUM 500 MG TABS 386818 PENICILLIN V POTASSIUM Inactive KEFLEX 500 MG CAP 1 po BID x 7 days KEFLEX 500 MG CAP 785348 CEPHALEXIN Inactive Immunizations Vaccine Administration Date Value [...] Fluvirin, Fluarix, Agriflu(>=18 yo)) Fluzone (>3 yrs.) [[id number]] Influenza, seasonal, injectable pneumococcal immunization administered Pneumovax [...] Panel - Chemistry sodium, serum 137 mmol/L 357-381 9393/10/12 potassium, serum 4.8 mmol/L 3.5-5.2 chloride, serum 102 mmol/L 98-107 carbon dioxide, venous blood 27.6 mmol/L 21.0-32.0 blood glucose 168 mg/dL 65-110 calcium, serum 9.0 mg/dL 8.5-10.1 urea nitrogen, blood 15 mg/dL 7-18 creatinine, serum 1.04 mg/dL 0.55-1.30 sodium, serum 138 mmol/L 052-726 0044/11/11 potassium, serum 4.7 mmol/L 3.5-5.2 chloride, serum [...] % 11.6-14.8 platelet count 240 10^3/MM^3 10*3/mm3 263-015 0628/11/11 leukocyte count, blood 9.6 10^3/MM^3 10*3/mm3 4.6-10.2 [...] 4.7 mg/dL 2.6-7.2 cholesterol, serum 142 mg/dL 584-788 4472/06/26 triglyceride, serum, fasting 272 mg/dL 30-200 HDL [...] negative Encounters Code Encounter Date Provider Facility CPT-12449 Level 3 Est. Patient 14:39:00 KHALIF Hickey MD [facility] CPT-24318 Level 2 Est. Patient 18:43:34 CDT Mima Erazo [facility] CPT-23327 Level 3 Est. Patient 16:22:09 CDT Cherelle Avila [facility] CPT-64577 Level 4 Est. Patient 17:55:14 CDT Mima Erazo [facility]-26379 Level 2 Est. Patient 17:13:21 CDT Alina Castaneda MD [facility]-71893 Level 3 Est. Patient 14:46:15 CDT Vanessa Hickey MD [facility]-36806 Level 3 Est. Patient 09:34:56 CDT Alina Castaneda MD [facility]-27421 Level 3 Est. Patient 21:40:19 CDT Mima Erazo [facility]-58225 Level 3 Est. Patient 09:26:40 CDT Marvel Charles [facility]-84768 Level 3 Est. Patient 12:36:43 CDT Vanessa Hickey MD [facility]-65898 Level 3 Est. Patient 12:57:49 CDT Vanessa Hickey MD [facility]-48244 Level 3 Est. Patient 00:28:25 CDT Alina Castaneda MD [facility]-16443 Level 2 Est. Patient 12:52:14 CDT Alina Castaneda MD [facility]-09261 Level 3 Est. Patient 11:51:18 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 Alina Castaneda MD [facility]-99569 Level 3 Est. Patient 10:09:22 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 Alina Castaneda MD [facility]-55693 Level 3 Est. Patient 14:36:26 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 Marvel Charles [facility]-93808 Level 3 Est. Patient 13:34:47 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 Alina Castaneda MD [facility]-42951 Level 3 Est. Patient 19:52:08 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 Alina Castaneda MD [facility]13929 Level 3 Est. Patient 10:01:51 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 Marvel Charles [facility] CPT-11956 Level 3 Est. Patient 21:54:06 CDT Vanessa Hickey MD [facility]-16902 Level 3 Est. Patient 08:54:46 CDT Alina Castaneda MD PhD [facility]-43732 Level 3 Est. Patient 09:32:11 CDT Brooksjohn Charles [facility]-08306 Level 3 Est. Patient 12:02:49 CDT Alina Castaneda MD PhD [facility]-71917 Level 3 Est. Patient 19:17:33 CDT Alina Castaneda MD PhD [facility]-68283 Level 3 Est. Patient 13:19:10 CDT Brooksjohn Charles [facility]-08195 Level 3 Est. Patient 08:20:05 CDT Alina Castaneda MD PhD [facility]-66761 Level 3 Est. Patient 15:17:18 CDT Alina Castaneda MD [facility]-40552 Level 3 Est. Patient 14:25:36 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 Marvel Araceli [facility]-11937 Level 3 Est. Patient 10:09:15 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 Marvel Gurdeepanca [facility] CPT-83010 Level 3 Est. Patient 21:28:43 CDT Alina Castaneda MD PhD [facility]-74117 Level 3 Est. Patient 15:20:11 [facility]-09585 Level 4 Est. Patient 19:08:12 CDT Alina Castaneda MD [facility]-23514 Level 3 Est. Patient 15:06:39 CDT Marvel Charles [facility] CPT-65468 Level 4 Est. Patient 17:48:15 CDT Alina Castaneda MD [facility]-79893 Level 3 Est. Patient 14:53:49 CDT Alina Castaneda MD [facility]-41084 Level 3 Est. Patient 09:35:16 CDT Alina Castaneda MD [facility]-04588 Level 3 Est. Patient 12:23:22 CDT Alina Castaneda MD [facility]-78479 Level 3 Est. Patient 16:19:15 CDT Alina Castaneda MD [facility]-36147 Level 3 Est. Patient 21:39:56 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 Alina Castaneda MD [facility]-84385 Level 4 Est. Patient 14:12:56 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 Alina Castaneda MD [facility]-76116 Level 2 Est. Patient 15:34:57 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 Alina Castaneda MD [facility] CPT-36114 Level 3 Est. Patient 12:17:04 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 Alina Castaneda MD [facility]-71703 Level 3 Est. Patient 09:18:18 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 Marvel Charles [facility] CPT-42919 Level 2 Est. Patient 21:50:24 CDT Alina Castaneda MD [facility]-72970 Level 3 Est. Patient 09:17:28 CDT Marvel Charles [facility] CPT-43545 Level 4 Est. Patient 18:54:02 CDT Alina Castaneda MD [facility] CPT-92676 Level 3 Est. Patient 10:47:10 CDT Alina Castaneda MD [facility] CPT-08879 Level 3 Est. Patient 09:22:20 CDT Marvel Thurstonestela [facility] CPT-49220 Level 3 Est. Patient 16:39:43 CDT Marvel Thurstonestela [facility] CPT-30336 Level 3 Est. Patient 16:05:16 CDT Alina Castaneda MD [facility] CPT-87766 Level 3 Est. Patient 00:29:15 CDT Alina Castaneda MD [facility] CPT-30766 Level 3 Est. Patient 10:49:22 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 Marvel Gurdeepajayestela [facility] [facility] CPT-24121 Level 3 Est. Patient 21:30:19 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 Alina Castaneda MD [facility] CPT-81194 Level 4 Est. Patient 17:04:11 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 Marvel Thurstonestela [facility] CPT-75913 Level 3 Est. Patient 15:34:11 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 Brooksnivia Gurdeepajayestela [facility] CPT-99351 Level 2 Est. Patient 12:51:58 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 Alina Castaneda MD [facility] CPT-80688 Level 3 Est. Patient 13:20:01 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 Alina Castaneda MD [facility] CPT-03348 Level 3 Est. Patient 09:23:35 CDT Alina Castaneda MD [facility] Procedures Code Procedure Name Date Entry Date Standard Description CPT-09868 Bladder Scan 14:39:01 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 CPT-TCMM Transitional Care Mgmt-Moderate 10:30:19 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 CPT-08466 Bladder Scan 12:36:44 CDT CPT-03804 Bladder Scan 21:54:06 CDT CPT-G0008 Administration of Influenza Virus Vaccine 13:05:26 CDT CPT-83751 Fluzone Quadrivalent Intramuscular Suspension 0.5 ML 13: 05:26 CDT CPT-70647 Administration single or combination vaccine inc oral 11 :49:51 CDT CPT-28819 Pneumovax 11:49:51 CDT CPT-04543 Ribs unilateral 2V 12:37:22 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 CPT-57755 Chest 2V Frontal and Lat 17:15:26 CDT CPT-37446 Abx/Therapy Injection 18:54:02 CDT CPT-J0696 Rocephin 1000 mg (Ceftriaxone) 16:00:32 CDT CPT-02685 Chest 2V Frontal and Lat 15:26:45 CDT CPT-06483 Chest 2V Frontal and Lat 10:23:27 CDT CPT-27760 Venipuncture Draw Fee 10:11:00 CDT CPT-69549 Administration single or combination vaccine inc oral 11 :56:38 CDT CPT-98521 Influenza split virus > age 3 11:56:38 CDT CPT-83734 Venipuncture Draw Fee 08:49:54 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
--- OUTSIDE RECORDS SUMMARY | 2018-07-02 18:12 | XMS REPORT | Clinical Summary ---
[...] unspecified type, uncontrolled PALPITATIONS 785.1 Active Alina Castnaeda MD PhD Palpitations UNSPECIFIED TACHYCARDIA 785.0 Resolved 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 Erazo PRODUCTION QUALITY MANAGER Benign paroxysmal positional vertigo Vertigo, benign paroxysmal position 386.11 Inactive Mima Erazo PRODUCTION QUALITY MANAGER Benign paroxysmal positional vertigo High-risk sexual behavior V69.2 Active Alina Castaneda MD PhD High-risk sexual behavior Erectile dysfunction 302.72 Active Alina Castaneda MD PhD Psychosexual dysfunction with inhibited sexual excitement Constipation 564.00 Active Alina Castaneda MD PhD Constipation, unspecified Skin lesion 709.9 Active Alina Castaneda MD PhD Unspecified disorder of skin and subcutaneous tissue Malaise and fatigue 780.79 Active Cherelle Speaks PRODUCTION QUALITY MANAGER Other malaise and fatigue Diarrhea 787.91 Active Cherelle Speaks PRODUCTION QUALITY MANAGER Diarrhea PHARYNGITIS 462 Active Cherelle Speaks PRODUCTION QUALITY MANAGER Acute pharyngitis Colitis 558.9 Active Mima Erazo PRODUCTION QUALITY MANAGER Other and unspecified noninfectious gastroenteritis and colitis WOUND, OPEN, NOSE ICD-873.20 Inactive Alina Castaneda MD PhD DIABETES, TYPE 2 ICD-250.00 Inactive Alina Castaneda MD PhD HYPERTENSION ICD-401.9 Inactive Alina Castaneda MD PhD URI ICD-465.9 Inactive Alina Castaneda MD PhD CHEST PAIN ICD-786.50 Inactive Alina Castaneda MD PhD FH STROKE ICD-V17.1 Inactive Marvel Charles WET MACHINE CUTTER FATIGUE ICD-780.79 Inactive Alina Castaneda MD PhD [...] mouth twice daily, for constipation DOCUSATE SODIUM 04201812643 No Longer Active Mima Erazo APRN Active FLONASE ALLERGY RELIEF 50 MCG/ACT NASAL SUSP One spray each nostril BID x 1 week then daily FLUTICASONE PROPIONATE 88365407349 Active Mimacecily Erazo APRN Active BD PEN NEEDLE MINI U/F 31G X 5 MM MISC 4 a day INSULIN PEN NEEDLE 66389144190 Active Mallashondaeh Ziglari WET MACHINE CUTTER Active AMITIZA 24 MCG ORAL CAPS Take one capsule BID for constipation LUBIPROSTONE 71571224279 Active Mimacecily Erazo APRN Active LEVEMIR FLEXTOUCH 100 UNIT/ML SC SOPN 75 units SQ each evening, for diabetes INSULIN DETEMIR 03838609827 Active Mima Erazo APRN Active TRUEPLUS LANCETS 30G MISC 3 a day LANCETS 99136919789 Active Mallashondaeh Ziglari WET MACHINE CUTTER Active TOLTERODINE TARTRATE 2 MG TABS 1 pill twice daily, for bladder TOLTERODINE TARTRATE 31294658455 No Longer Active Vanessa Hickey MD Active AMITIZA 24 MCG ORAL CAPS Take one capsule BID for constipation. LUBIPROSTONE 01844145621 No Longer Active Vanessa Hickey MD Active LOMOTIL 2.5-0.025 MG ORAL TABS take 1-2 tabs PO after each stool, no more than 8 in 24 hours DIPHENOXYLATE-ATROPINE 20681707891 Active Grace Nascimento RMA Active FLUVOXAMINE MALEATE 100 MG ORAL TABS take one tab every AM et HS, and take 1/ 2 tab at noon FLUVOXAMINE MALEATE 92934164281 Active Gracekailee Nascimento RMA Active METOPROLOL SUCCINATE 100 MG [id number]-KKQ 1 by mouth daily for blood pressure METOPROLOL SUCCINATE 56974160399 No Longer Active Grace Nascimento RMA Active METFORMIN HCL ER 500 MG FZ40H-PRW Take three tablets by mouth everyday METFORMIN HCL 28316359323 No Longer Active Grace Nascimento RMA Active LOVAZA 1 GM CAPS 4 daily (for triglycerides) OMEGA-3- ACID ETHYL ESTERS 90617230154 No Longer Active Grace Nascimento RMA Active TRAZODONE HCL 100 MG ORAL TABS 1 tab by mouth for sleep TRAZODONE HCL 33290146641 No Longer Active Grace Nascimento RMA Active NOVOFINE 32G X 6 MM MISC use one four times per day INSULIN PEN NEEDLE 43583669961 No Longer Active Grace Nascimento RMA Active BACTROBAN 2 % CREAM Apply to affected area BID for up to 10 days MUPIROCIN CALCIUM 56493261095 No Longer Active Grace Nascimento RMA Active ZOFRAN 4 MG TABS 1 po q4hr PRN Nausea ONDANSETRON HCL 68693766432 Active Salina Han RMA Active KEFLEX 500 MG CAP 1 po BID x 7 days CEPHALEXIN 61177398093 No Longer Active Cherelle Avila APRN Active FLUVOXAMINE MALEATE 100 MG TABS Take one (1) tablet by mouth am, 1/2 at noon FLUVOXAMINE MALEATE 33312686853 No Longer Active Mima Erazo PRODUCTION QUALITY MANAGER Active CORICIDIN HBP CONGESTION/COUGH 10-200 MG ORAL CAPS Take as directed on box as needed for cold/flu symptoms DEXTROMETHORPHAN-GUAIFENESIN 60197912607 Active Cherelle Speaks PRODUCTION QUALITY MANAGER Active OMEGA-3 300 MG ORAL CAPS 4 caps by mouth daily OMEGA-3 FATTY ACIDS 21697625214 Active Mima Erazo PRODUCTION QUALITY MANAGER Active FLUVOXAMINE MALEATE 100 MG ORAL TABS Take 1/2 tab at noon FLUVOXAMINE MALEATE 15921074851 No Longer Active Cherelle Speaks PRODUCTION QUALITY MANAGER Active [facility] LUBRICANT EYE DROPS 0.4-0.3 % OPHTH SOLN POLYETHYL GLYCOL-PROPYL GLYCOL 35160579787 Active Mima Erazo PRODUCTION QUALITY MANAGER Active CLONAZEPAM 1 MG TABS 1/2 pill by mouth three times daily CLONAZEPAM 35752197111 Active Mason Loredo MD Active MIRALAX POWD 17g by mouth daily, for constipation POLYETHYLENE GLYCOL 3350 22188672965 Active Alina Castaneda MD PhD Active HYDROCODONE-ACETAMINOPHEN 5-325 MG TABS 2 tabs by mouth three times daily for pain HYDROCODONE-ACETAMINOPHEN 55168717396 Active Mima Erazo PRODUCTION QUALITY MANAGER Active HUMALOG KWIKPEN 100 UNIT/ML SC SOPN 20 units with breakfast, 10 units with lunch, 10 units with dinner, for diabetes INSULIN LISPRO (HUMAN ) 42614802548 Active Alina Castaneda MD PhD Active LATUDA 120 MG ORAL TABS 1 pill by mouth nightly LURASIDONE HCL 21802910881 Active Alina Castaneda MD PhD Active TRUETEST TEST STRP check blood sugars 3x/day GLUCOSE BLOOD 91402372154 Active Marvel Charles WET MACHINE CUTTER Active ACCU-CHEK ROSA UZMA Use device to check blood sugars BLOOD GLUCOSE MONITORING SUPPL 69407435623 No Longer Active Marvel Charles WET MACHINE CUTTER Active ACCU-CHEK ROSA INVITR STRP use strips with device to check blood sugars 3 times daily GLUCOSE BLOOD 54067770243 No Longer Active Marvel MARROQUIN Active VERAPAMIL HCL ER 180 MG ORAL CR-TABS 1 pill by mouth twice daily, for migraine prevention VERAPAMIL HCL 40746720049 Active CRYSTAL Rodrigues Active CYCLOBENZAPRINE HCL 10 MG TABS 1 tablet by mouth three times daily, scheduled CYCLOBENZAPRINE HCL 61594649038 No Longer Active Alina Castaneda MD PhD Active HUMALOG 100 UNIT/ML SOLN Take 20 units with breakfast, 10u with lunch and suppetr. INSULIN LISPRO (HUMAN) 02526128051 No Longer Active Alina Castaneda MD PhD Active TRUETEST TEST STRP check sugars 4x/day GLUCOSE BLOOD 56186386270 No Longer Active Alina Castaneda MD PhD Active MORPHINE SULFATE 30 MG TABS 1 pill by mouth twice daily, for pain MORPHINE SULFATE 94736074028 Active Mason Loredo MD Active ACYCLOVIR 400 MG ORAL TABS 1 pill three times daily x 5 days, for cold sore outbreak ACYCLOVIR 70313338512 No Longer Active Alina Castaneda MD PhD Active PENICILLIN V POTASSIUM 500 MG TABS 1 pill by mouth three times daily PENICILLIN V POTASSIUM 14680306254 No Longer Active Alina Castaneda MD PhD Active UROXATRAL 10 MG [id number] Take 1 tablet by mouth daily ALFUZOSIN HCL 37218228131 No Longer Active Alina Castaneda MD PhD Active THIOTHIXENE 5 MG CAPS by mouth twice a day THIOTHIXENE 28441356872 No Longer Active Alina Castaneda MD PhD Active ZYPREXA 7.5 MG TABS 1 at HS OLANZAPINE 42569791497 No Longer Active Alina Castaneda MD PhD Active BD INSULIN SYRINGE 28G X 1/2" 1 ML MISC 1 four times per day INSULIN SYRINGE-NEEDLE U-100 13707553979 Active Marvel MARROQUIN Active DETROL LA 4 MG [id number] Take 1 tablet by mouth daily TOLTERODINE TARTRATE 86096910749 No Longer Active Alian Castaneda MD PhD Active TERESE CONTOUR TEST STRP monitor blood sugars 3x/day GLUCOSE BLOOD 41499350988 No Longer Active Alina Castaneda MD PhD Active EQL TRUETEST TEST STRP Test blood sugar TID GLUCOSE BLOOD 34855738090 No Longer Active Alina Castaneda MD PhD Active FLUTICASONE PROPIONATE 50 MCG/ACT SUSP 2 sprays each nostril qDay x 30 days FLUTICASONE PROPIONATE 41685227899 No Longer Active Alina Castaneda MD PhD Active IBUPROFEN 200 MG TABS 1 Q 6 hr. PRN IBUPROFEN 21883947265 No Longer Active Alina Castaneda MD PhD Active NIACIN ER 500 MG CR-TABS 4 qHS (for triglycerides) NIACIN 39572770655 No Longer Active Alina Castaneda MD PhD Active ALFUZOSIN HCL ER 10 MG [id number]-CNN 1 tablet daily ALFUZOSIN HCL 15262859479 Active CRYSTAL Rodrigues Active SAPHRIS 5 MG SUBL by mouth twice a day ASENAPINE MALEATE 27555401887 No Longer Active Marvel MARROQUIN Active ACETAMINOPHEN 500 MG TABS 2 Q 6 hr. PRN ACETAMINOPHEN 29193151273 No Longer Active Marvel MARROQUIN Active ORPHENADRINE CITRATE ER 100 MG [id number] 1 every 12 hr. as needed ORPHENADRINE CITRATE 11958383116 No Longer Active Alina Castaneda MD PhD Active NIACIN CR 500 MG CR-TABS 2 qHS NIACIN 68417025597 No Longer Active Alina Castaneda MD PhD Active AMOXICILLIN 500 MG CAPS 2 po BID x 10 days AMOXICILLIN 60427913679 No Longer Active Alina Castaneda MD PhD Active HYDROCODONE-ACETAMINOPHEN 7.5-325 MG TABS 1 four times a day as needed for pain HYDROCODONE-ACETAMINOPHEN 69657099540 No Longer Active Alina Castaneda MD PhD Active DOXEPIN HCL 10 MG CAPS Take 1 tablet by mouth daily DOXEPIN HCL 56931747301 No Longer Active Salina Han A Active NAVANE 10 MG CAPS 1/2 tablet twice a day THIOTHIXENE No Longer Active Salina Han A Active CYCLOBENZAPRINE HCL 10 MG TABS 1/2 tablet by mouth every 8 hours as needed for muscle spasms CYCLOBENZAPRINE HCL 85442831010 No Longer Active Alina Castaneda MD PhD Active BACTROBAN 2 % CREAM apply to ear and nose twice daily MUPIROCIN CALCIUM 48560495535 No Longer Active Alina Castaneda MD PhD Active HYDROCODONE-ACETAMINOPHEN 5-325 MG TABS take one tablet by mouth every four hours as needed for pain HYDROCODONE-ACETAMINOPHEN 45582419991 No Longer Active Alina Castaneda MD PhD Active ZOLPIDEM TARTRATE 10 MG TABS take at bedtime ZOLPIDEM TARTRATE 16089531668 Active Alina Castaneda MD PhD Active ZYPREXA 5 MG TABS take one tablet by mouth every evening OLANZAPINE 10924426752 No Longer Active Alina Castaneda MD PhD Active ALBUTEROL SULFATE 0.083 % NEBU SOLN one vial per nebulizer TID and PRN cough/ soa ALBUTEROL SULFATE 86901128073 No Longer Active Alina Castaneda MD PhD Active GUAIFENESIN 600 MG [id number]-KSP 1 tablet by mouth twice daily if needed for cough GUAIFENESIN 65040569434 No Longer Active Marvel MARROQUIN Active AZITHROMYCIN 500 MG SOLR 1 po q day AZITHROMYCIN 66785750436 No Longer Active Alina Castaneda MD PhD Active PROMETHAZINE-CODEINE 6.25-10 MG/5ML SYRP 1 tsp po q 6 hours prn cough PROMETHAZINE-CODEINE 61840625864 No Longer Active Alina Castaneda MD PhD Active CEFDINIR 300 MG CAPS by mouth twice a day CEFDINIR 90026115080 No Longer Active Alina Castaneda MD PhD Active METFORMIN HCL 500 MG HW65J-SSN Take 3 tablets by mouth everyday METFORMIN HCL 28090793339 No Longer Active Alina Castaneda MD PhD Active LEVEMIR 100 UNIT/ML SOLN 90 units SQ qHS INSULIN DETEMIR 52533235471 No Longer Active Marvel MARROQUIN Active TOPROL XL 100 MG [id number] 1 @ HS METOPROLOL SUCCINATE 69737663531 No Longer Active Marvel MARROQUIN Active ALLOPURINOL 300 MG TABS Take one by mouth daily ALLOPURINOL 09956449048 Active Mima Erazo PRODUCTION QUALITY MANAGER Active ZYPREXA 10 MG TABS Take one by mouth daily OLANZAPINE 54690447289 No Longer Active Alina Castaneda MD PhD Active NOVOLOG 100 UNIT/ML SOLN 40 units with every meal INSULIN ASPART 04801247193 No Longer Active Alina Castaneda MD PhD Active VERAPAMIL HCL CR 120 MG TAB CR 1 qPM VERAPAMIL HCL 85638490151 No Longer Active Salina ROJAS Active ZYPREXA 15 MG TABS Take 1 tablet by mouth daily OLANZAPINE 89656299071 No Longer Active Marvel MARROQUIN Active LISINOPRIL 20 MG TABS 1 BID LISINOPRIL 96882989031 Active Alina Castaneda MD PhD Active ALBUTEROL SULFATE (2.5 MG/3ML) 0.083% NEBU 1 neb tid and prn cough ALBUTEROL SULFATE 28728561444 No Longer Active Alina Castaneda MD PhD Active TRAVATAN Z 0.004 % SOLN 1 gtt each eye daily TRAVOPROST 82166566788 Active CRYSTAL Suarez Active LANTUS 100 UNIT/ML SOLN 60 units sq q hs INSULIN GLARGINE 88758248475 No Longer Active CRYSTAL Suarez Active ALBUTEROL SULFATE (2.5 MG/3ML) 0.083% NEBU 1 neb tid and prn cough ALBUTEROL SULFATE (2.5 MG/3ML) 0.083% NEBU 686025 ALBUTEROL SULFATE Inactive ZYPREXA 15 MG TABS Take 1 tablet by mouth daily ZYPREXA 15 MG TABS 012099 OLANZAPINE Inactive VERAPAMIL HCL CR 120 MG TAB CR 1 qPM VERAPAMIL HCL CR 120 MG TAB CR VERAPAMIL HCL Inactive ZYPREXA 10 MG TABS Take one by mouth daily ZYPREXA 10 MG TABS 081629 OLANZAPINE Inactive TOPROL XL 100 MG [id number] 1 @ HS TOPROL XL 100 MG [id number] METOPROLOL SUCCINATE Inactive LEVEMIR 100 UNIT/ML SOLN 90 units SQ qHS LEVEMIR 100 UNIT/ML SOLN INSULIN DETEMIR Inactive PROMETHAZINE-CODEINE 6.25-10 MG/5ML SYRP 1 tsp po q 6 hours prn cough PROMETHAZINE-CODEINE 6.25-10 MG/5ML SYRP 297653 PROMETHAZINE- CODEINE Inactive GUAIFENESIN 600 MG [id number]-[id number] 1 tablet by mouth twice daily if needed for cough GUAIFENESIN 600 MG [id number]-VXL GUAIFENESIN Inactive ALBUTEROL SULFATE 0.083 % NEBU SOLN one vial per nebulizer TID and PRN cough/ soa ALBUTEROL SULFATE 0.083 % NEBU SOLN 365093 ALBUTEROL SULFATE Inactive ZYPREXA 5 MG TABS take one tablet by mouth every evening ZYPREXA 5 MG TABS 749586 OLANZAPINE Inactive HYDROCODONE-ACETAMINOPHEN 5-325 MG TABS take one tablet by mouth every four hours as needed for pain HYDROCODONE-ACETAMINOPHEN 5-325 MG TABS 217438 HYDROCODONE-ACETAMINOPHEN Inactive BACTROBAN 2 % CREAM apply to ear and nose twice daily BACTROBAN 2 % CREAM 280913 MUPIROCIN CALCIUM Inactive CYCLOBENZAPRINE HCL 10 MG TABS 1/2 tablet by mouth every 8 hours as needed for muscle spasms CYCLOBENZAPRINE HCL 10 MG TABS 346801 CYCLOBENZAPRINE HCL Inactive NAVANE 10 MG CAPS 1/2 tablet twice a day NAVANE 10 MG CAPS THIOTHIXENE Inactive DOXEPIN HCL 10 MG CAPS Take 1 tablet by mouth daily DOXEPIN HCL 10 MG CAPS 9753347 DOXEPIN HCL Inactive HYDROCODONE-ACETAMINOPHEN 7.5-325 MG TABS 1 four times a day as needed for pain HYDROCODONE-ACETAMINOPHEN 7.5-325 MG TABS 923038 HYDROCODONE-ACETAMINOPHEN Inactive NIACIN CR 500 MG CR-TABS 2 qHS NIACIN CR 500 MG CR- TABS NIACIN Inactive ORPHENADRINE CITRATE ER 100 MG [id number] 1 every 12 hr. as needed ORPHENADRINE CITRATE ER 100 MG [id number]-LCE ORPHENADRINE CITRATE Inactive ACETAMINOPHEN 500 MG TABS 2 Q 6 hr. PRN ACETAMINOPHEN 500 MG TABS 623959 ACETAMINOPHEN Inactive SAPHRIS 5 MG SUBL by mouth twice a day SAPHRIS 5 MG SUBL ASENAPINE MALEATE Inactive NIACIN ER 500 MG CR-TABS 4 qHS (for triglycerides) NIACIN ER 500 MG CR-TABS NIACIN Inactive IBUPROFEN 200 MG TABS 1 Q 6 hr. PRN IBUPROFEN 200 MG TABS 638584 IBUPROFEN Inactive FLUTICASONE PROPIONATE 50 MCG/ACT SUSP 2 sprays each nostril qDay x 30 days FLUTICASONE PROPIONATE 50 MCG/ACT SUSP 180936 FLUTICASONE PROPIONATE Inactive EQL TRUETEST TEST STRP Test blood sugar TID EQL TRUETEST TEST STRP GLUCOSE BLOOD Inactive TERESE CONTOUR TEST STRP monitor blood sugars 3x/day TERESE CONTOUR TEST STRP GLUCOSE BLOOD Inactive DETROL LA 4 MG ZP96H-RWF Take 1 tablet by mouth daily DETROL LA 4 MG VB36M-PBK TOLTERODINE TARTRATE Inactive ZYPREXA 7.5 MG TABS 1 at HS ZYPREXA 7.5 MG TABS 393381 OLANZAPINE Inactive THIOTHIXENE 5 MG CAPS by mouth twice a day THIOTHIXENE 5 MG CAPS 854854 THIOTHIXENE Inactive UROXATRAL 10 MG [id number] Take 1 tablet by mouth daily UROXATRAL 10 MG EQ16B-MMR ALFUZOSIN HCL Inactive ACYCLOVIR 400 MG ORAL TABS 1 pill three times daily x 5 days, for cold sore outbreak ACYCLOVIR 400 MG ORAL TABS 356151 ACYCLOVIR Inactive TRUETEST TEST STRP check sugars 4x/day TRUETEST TEST STRP GLUCOSE BLOOD Inactive HUMALOG 100 UNIT/ML SOLN Take 20 units with breakfast, 10u with lunch and suppetr. HUMALOG 100 UNIT/ML SOLN INSULIN LISPRO ( HUMAN) Inactive CYCLOBENZAPRINE HCL 10 MG TABS 1 tablet by mouth three times daily, scheduled CYCLOBENZAPRINE HCL 10 MG TABS 138509 CYCLOBENZAPRINE HCL Inactive ACCU-CHEK ROSA INVITR STRP use strips with device to check blood sugars 3 times daily ACCU-CHEK ROSA INVITR STRP GLUCOSE BLOOD Inactive ACCU-CHEK ROSA UZMA Use device to check blood sugars ACCU-CHEK ROSA UZMA BLOOD GLUCOSE MONITORING SUPPL Inactive FLUVOXAMINE MALEATE 100 MG ORAL TABS Take 1/2 tab at noon FLUVOXAMINE MALEATE 100 MG ORAL TABS 523017 FLUVOXAMINE MALEATE Inactive FLUVOXAMINE MALEATE 100 MG TABS Take one (1) tablet by mouth am, 1/2 at noon FLUVOXAMINE MALEATE 100 MG TABS 864535 FLUVOXAMINE MALEATE Inactive BACTROBAN 2 % CREAM Apply to affected area BID for up to 10 days BACTROBAN 2 % CREAM 086371 MUPIROCIN CALCIUM Inactive NOVOFINE 32G X 6 MM MISC use one four times per day NOVOFINE 32G X 6 MM MISC INSULIN PEN NEEDLE Inactive TRAZODONE HCL 100 MG ORAL TABS 1 tab by mouth for sleep TRAZODONE HCL 100 MG ORAL TABS 305625 TRAZODONE HCL Inactive LOVAZA 1 GM CAPS 4 daily (for triglycerides) LOVAZA 1 GM CAPS 506631 ZNOBZ-[id number] ETHYL ESTERS Inactive METFORMIN HCL ER 500 MG EY60N-GPT Take three tablets by mouth everyday METFORMIN HCL ER 500 MG JX23B-BML METFORMIN HCL Inactive METOPROLOL SUCCINATE 100 MG TD74U-FKQ 1 by mouth daily for blood pressure METOPROLOL SUCCINATE 100 MG VH60R-GXW METOPROLOL SUCCINATE Inactive AMITIZA 24 MCG ORAL CAPS Take one capsule BID for constipation. AMITIZA 24 MCG ORAL CAPS LUBIPROSTONE Inactive TOLTERODINE TARTRATE 2 MG TABS 1 pill twice daily, for bladder TOLTERODINE TARTRATE 2 MG TABS 407572 TOLTERODINE TARTRATE Inactive COLACE 100 MG CAPS 1 pill by mouth twice daily, for constipation COLACE 100 MG CAPS 2117279 DOCUSATE SODIUM Inactive CEFDINIR 300 MG CAPS by mouth twice a day CEFDINIR 300 MG CAPS 348425 CEFDINIR Inactive AZITHROMYCIN 500 MG SOLR 1 po q day AZITHROMYCIN 500 MG SOLR 31699385214 AZITHROMYCIN Inactive AMOXICILLIN 500 MG CAPS 2 po BID x 10 days AMOXICILLIN 500 MG CAPS 207339 AMOXICILLIN Inactive PENICILLIN V POTASSIUM 500 MG TABS 1 pill by mouth three times daily PENICILLIN V POTASSIUM 500 MG TABS 811450 PENICILLIN V POTASSIUM Inactive KEFLEX 500 MG CAP 1 po BID x 7 days KEFLEX 500 MG CAP 254753 CEPHALEXIN Inactive Immunizations Vaccine Administration Date Value [...] Fluvirin, Fluarix, Agriflu(>=18 yo)) Fluzone (>3 yrs.) [[id number]] Influenza, seasonal, injectable pneumococcal immunization administered Pneumovax [...] Panel - Chemistry sodium, serum 137 mmol/L 329-443 5938/10/12 potassium, serum 4.8 mmol/L 3.5-5.2 chloride, serum 102 mmol/L 98-107 carbon dioxide, venous blood 27.6 mmol/L 21.0-32.0 blood glucose 168 mg/dL 65-110 calcium, serum 9.0 mg/dL 8.5-10.1 urea nitrogen, blood 15 mg/dL 7-18 creatinine, serum 1.04 mg/dL 0.55-1.30 sodium, serum 138 mmol/L 054-430 4051/11/11 potassium, serum 4.7 mmol/L 3.5-5.2 chloride, serum [...] % 11.6-14.8 platelet count 240 10^3/MM^3 10*3/mm3 632-617 1650/11/11 leukocyte count, blood 9.6 10^3/MM^3 10*3/mm3 4.6-10.2 [...] Acid - Chemistry cholesterol, serum 187 mg/dL 508-186 3669/06/14 triglyceride, serum, fasting 246 mg/dL 30-200 HDL [...] negative Encounters Code Encounter Date Provider Facility CPT-73014 Level 3 Est. Patient 16:27:51 CDT Mima Erazo [facility]-15792 Level 3 Est. Patient 14:39:00 TRAVELING ELECTRICIAN Vanessa Hickey MD [facility]-86237 Level 2 Est. Patient 18:43:34 CDT Mima Erazo [facility] CPT-67575 Level 3 Est. Patient 16:22:09 CDT Cherelle Avila [facility] CPT-71580 Level 4 Est. Patient 17:55:14 CDT Mima Erazo [facility] CPT-41036 Level 2 Est. Patient 17:13:21 CDT Alina Castaneda MD [facility]-54456 Level 3 Est. Patient 14:46:15 CDT Vanessa Hickey MD [facility]-52712 Level 3 Est. Patient 09:34:56 CDT Alina Castaneda MD [facility]27442 Level 3 Est. Patient 21:40:19 CDT Mima Erazo [facility] CPT-20934 Level 3 Est. Patient 09:26:40 CDT Marvel [facility]-43890 Level 3 Est. Patient 12:36:43 CDT Vanessa Hickey MD [facility]-56915 Level 3 Est. Patient 12:57:49 CDT Vanessa Hickey MD [facility]-46523 Level 3 Est. Patient 00:28:25 CDT Alina Castaneda MD [facility]77584 Level 2 Est. Patient 12:52:14 CDT Alina Castaneda MD [facility]36625 Level 3 Est. Patient 11:51:18 TRAVELING ELECTRICIAN Alina Castaneda MD [facility]-67707 Level 3 Est. Patient 10:09:22 TRAVELING ELECTRICIAN Alina Castaneda MD [facility]-09664 Level 3 Est. Patient 14:36:26 TRAVELING ELECTRICIAN Marvel Charles [facility]-45832 Level 3 Est. Patient 13:34:47 TRAVELING ELECTRICIAN Alina Castaneda MD [facility]45906 Level 3 Est. Patient 19:52:08 TRAVELING ELECTRICIAN Alina Castaneda MD [facility]15014 Level 3 Est. Patient 10:01:51 TRAVELING ELECTRICIAN Marvel Charles [facility]-33050 Level 3 Est. Patient 21:54:06 CDT Vanessa Hickey MD [facility]-84351 Level 3 Est. Patient 08:54:46 CDT Alina Castaneda MD [facility]34864 Level 3 Est. Patient 09:32:11 CDT Marvel Charles [facility]-02347 Level 3 Est. Patient 12:02:49 CDT Alina Castaneda MD [facility]86306 Level 3 Est. Patient 19:17:33 CDT Alina Castaneda MD [facility]-97624 Level 3 Est. Patient 13:19:10 CDT Marvel Charles [facility]-74502 Level 3 Est. Patient 08:20:05 CDT Alina Castaneda MD [facility]60804 Level 3 Est. Patient 15:17:18 CDT Alina Castaneda MD [facility]72362 Level 3 Est. Patient 14:25:36 TRAVELING ELECTRICIAN Marvel Charles [facility]16576 Level 3 Est. Patient 10:09:15 TRAVELING ELECTRICIAN Marvel Charles [facility] CPT-99596 Level 3 Est. Patient 21:28:43 CDT Alina Castaneda MD [facility] CPT-67587 Level 3 Est. Patient 15:20:11 CDT Marvel Thurstonestela [facility] CPT-49993 Level 4 Est. Patient 19:08:12 CDT Alina Castaneda MD [facility] CPT-45116 Level 3 Est. Patient 15:06:39 CDT Marvel Gurdeepajayestela [facility] CPT-13863 Level 4 Est. Patient 17:48:15 CDT Alina Castaneda MD [facility] CPT-60030 Level 3 Est. Patient 14:53:49 CDT Alina Castaneda MD [facility] CPT-14405 Level 3 Est. Patient 09:35:16 CDT Alina Castaneda MD [facility] CPT-38249 Level 3 Est. Patient 12:23:22 CDT Alina Castaneda MD [facility] CPT-78350 Level 3 Est. Patient 16:19:15 CDT Alina Castaneda MD [facility] CPT-59482 Level 3 Est. Patient 21:39:56 TRAVELING ELECTRICIAN Alina Castaneda MD [facility] CPT-08354 Level 4 Est. Patient 14:12:56 TRAVELING ELECTRICIAN Alina Castaneda MD [facility]-37505 Level 2 Est. Patient 15:34:57 TRAVELING ELECTRICIAN Alina Castaneda MD [facility] CPT-35245 Level 3 Est. Patient 12:17:04 TRAVELING ELECTRICIAN Alina Castaneda MD [facility]-24170 Level 3 Est. Patient 09:18:18 TRAVELING ELECTRICIAN Marvel Araceli [facility]-51737 Level 2 Est. Patient 21:50:24 CDT Alina Castaneda MD [facility]47774 Level 3 Est. Patient 09:17:28 CDT Brooksjohn Charles [facility]-16696 Level 4 Est. Patient 18:54:02 CDT Alina Castaneda MD [facility]46222 Level 3 Est. Patient 10:47:10 CDT Alina Castaneda MD [facility]34086 Level 3 Est. Patient 09:22:20 CDT Brookslashondanivia Araceli [facility]-39310 Level 3 Est. Patient 16:39:43 CDT Brooksjohn Charles [facility]-67357 Level 3 Est. Patient 16:05:16 CDT Alina Castaneda MD [facility]40498 Level 3 Est. Patient 00:29:15 CDT Alina Castaneda MD [facility]76579 Level 3 Est. Patient 10:49:22 TRAVELING ELECTRICIAN Brooksjohn Charles [facility]-63158 Level 3 Est. Patient 21:30:19 TRAVELING ELECTRICIAN Alina Castaneda MD [facility]-[id number] Level 4 Est. Patient 17:04:11 TRAVELING ELECTRICIAN Marvel Charles [facility]89895 Level 3 Est. Patient 15:34:11 TRAVELING ELECTRICIAN Marvel Charles [facility]-[id number] Level 2 Est. Patient 12:51:58 TRAVELING ELECTRICIAN Alina Castaneda MD PhD [facility] CPT-20780 Level 3 Est. Patient 13:20:01 TRAVELING ELECTRICIAN Alina Castaneda MD PhD [facility] CPT-82423 Level 3 Est. Patient 09:23:35 CDT Alina Castaneda MD PhD 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
--- OUTSIDE RECORDS SUMMARY | 2018-07-02 18:14 | XMS REPORT | Clinical Summary ---
Author Author Admin, TERELL Organization [facility] Address Unknown Phone Unavailable Allergies, Adverse [...] Unspecified glaucoma GOUT, UNSPECIFIED 274.9 Active Alina Csataneda MD PhD Gout, unspecified FH STROKE V17.1 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 Erazo [employer] Benign paroxysmal positional vertigo Vertigo, benign paroxysmal position 386.11 Inactive Mima Erazo [employer] Benign paroxysmal positional vertigo High-risk sexual behavior V69.2 Active Alina Castaneda MD PhD High-risk sexual behavior Erectile dysfunction 302.72 Active Alina Castaneda MD PhD Psychosexual dysfunction with inhibited sexual excitement Constipation 564.00 Active Alina Castaneda MD PhD Constipation, unspecified Skin lesion 709.9 Active Alina Castaneda MD PhD Unspecified disorder of skin and subcutaneous tissue Malaise and fatigue 780.79 Active Cherelle Speaks [employer] FARMWORK[employer] Other malaise and fatigue Diarrhea 787.91 Active Cherelle Speaks [employer] FARMWORK[employer] Diarrhea PHARYNGITIS 462 Active Cherelle Speaks [employer] FARMWORKER Acute pharyngitis Colitis 558.9 Active Mima Erazo [employer] Other and unspecified noninfectious gastroenteritis and colitis WOUND, OPEN, NOSE ICD-873.20 Inactive Alina Castaneda MD PhD DIABETES, TYPE 2 ICD-250.00 Inactive Alina Csataneda MD PhD HYPERTENSION ICD-401.9 Inactive Alina Castaneda MD PhD URI ICD-465.9 Inactive Alina Castaneda MD PhD CHEST PAIN ICD-786.50 Inactive Alina Castaneda MD PhD FH STROKE ICD-V17.1 Inactive Marvel Charles ANIMAL NUTRITION CONSULTANT FATIGUE ICD-780.79 Inactive Alina Castaneda MD [...] mouth twice daily, for constipation DOCUSATE SODIUM 70136541780 No Longer Active Mima Erazo APRN Active FLONASE ALLERGY RELIEF 50 MCG/ACT NASAL SUSP One spray each nostril BID x 1 week then daily FLUTICASONE PROPIONATE 70915578033 Active Mimacecily Erazo APRN Active BD PEN NEEDLE MINI U/F 31G X 5 MM MISC 4 a day INSULIN PEN NEEDLE 32942907472 Active Mallashondaeh Ziglari ANIMAL NUTRITION CONSULTANT Active AMITIZA 24 MCG ORAL CAPS Take one capsule BID for constipation LUBIPROSTONE 35420069617 Active Mimacecily Erazo APRN Active LEVEMIR FLEXTOUCH 100 UNIT/ML SC SOPN 75 units SQ each evening, for diabetes INSULIN DETEMIR 94705389855 Active Mima Erazo APRN Active TRUEPLUS LANCETS 30G MISC 3 a day LANCETS 40580764020 Active Mallashondaeh Ziglari ANIMAL NUTRITION CONSULTANT Active TOLTERODINE TARTRATE 2 MG TABS 1 pill twice daily, for bladder TOLTERODINE TARTRATE 98475406289 No Longer Active Vanessa Hickey MD Active AMITIZA 24 MCG ORAL CAPS Take one capsule BID for constipation. LUBIPROSTONE 05307553386 No Longer Active Vanessa Hickey MD Active LOMOTIL 2.5-0.025 MG ORAL TABS take 1-2 tabs PO after each stool, no more than 8 in 24 hours DIPHENOXYLATE-ATROPINE 73147379045 Active Grace Nascimento RMA Active FLUVOXAMINE MALEATE 100 MG ORAL TABS take one tab every AM et HS, and take 1/ 2 tab at noon FLUVOXAMINE MALEATE 40780479351 Active Gracekailee Nascimento RMA Active METOPROLOL SUCCINATE 100 MG [id number] 1 by mouth daily for blood pressure METOPROLOL SUCCINATE 09741792362 No Longer Active Grace Nascimento RMA Active METFORMIN HCL ER 500 MG [id number] Take three tablets by mouth everyday METFORMIN HCL 51669460405 No Longer Active Grace Nascimento RMA Active LOVAZA 1 GM CAPS 4 daily (for triglycerides) OMEGA-3- ACID ETHYL ESTERS 94281830358 No Longer Active Grace Nascimento RMA Active TRAZODONE HCL 100 MG ORAL TABS 1 tab by mouth for sleep TRAZODONE HCL 10421843066 No Longer Active Grace Nascimento RMA Active NOVOFINE 32G X 6 MM MISC use one four times per day INSULIN PEN NEEDLE 34805686606 No Longer Active Grace Nascimento RMA Active BACTROBAN 2 % CREAM Apply to affected area BID for up to 10 days MUPIROCIN CALCIUM 13652555524 No Longer Active Grace Nascimento RMA Active ZOFRAN 4 MG TABS 1 po q4hr PRN Nausea ONDANSETRON HCL 78638169565 Active Salina aHn RMA Active KEFLEX 500 MG CAP 1 po BID x 7 days CEPHALEXIN 94365237367 No Longer Active Cherelle Avila APRN Active FLUVOXAMINE MALEATE 100 MG TABS Take one (1) tablet by mouth am, 1/2 at noon FLUVOXAMINE MALEATE 01700996646 No Longer Active Mima Erazo [employer] F[employer] Active CORICIDIN HBP CONGESTION/COUGH 10-200 MG ORAL CAPS Take as directed on box as needed for cold/flu symptoms DEXTROMETHORPHAN-GUAIFENESIN 88449079629 Active Cherelle Speaks [employer]ULBS FARMWORKER Active OMEGA-3 300 MG ORAL CAPS 4 caps by mouth daily OMEGA-3 FATTY ACIDS 60229809315 Active Mima Fierroum [employer]ULBS FARMWORKER Active FLUVOXAMINE MALEATE 100 MG ORAL TABS Take 1/2 tab at noon FLUVOXAMINE MALEATE 23411208213 No Longer Active Cherelle Avila [employer]BS FARMWORKER Active [facility] LUBRICANT EYE DROPS 0.4-0.3 % OPHTH SOLN POLYETHYL GLYCOL-PROPYL GLYCOL 21258857203 Active Mima Erazo [employer] F[employer]ER Active CLONAZEPAM 1 MG TABS 1/2 pill by mouth three times daily CLONAZEPAM 86763247234 Active Mima Fierroum [employer]BS FARMWORKER Active MIRALAX POWD 17g by mouth daily, for constipation POLYETHYLENE GLYCOL 3350 19129297062 Active Alina Castaneda MD PhD Active HYDROCODONE-ACETAMINOPHEN 5-325 MG TABS 2 tabs by mouth three times daily for pain HYDROCODONE-ACETAMINOPHEN 13646732312 Active Mima Erazo [employer] F[employer]WORKER Active HUMALOG KWIKPEN 100 UNIT/ML SC SOPN 20 units with breakfast, 10 units with lunch, 10 units with dinner, for diabetes INSULIN LISPRO (HUMAN ) 45688920925 Active Alina Castaneda MD PhD Active LATUDA 120 MG ORAL TABS 1 pill by mouth nightly LURASIDONE HCL 54115763135 Active Alina Castaneda MD PhD Active TRUETEST TEST STRP check blood sugars 3x/day GLUCOSE BLOOD 13840404460 Active Marvel MENDOZAP Active ACCU-CHEK ROSA UZMA Use device to check blood sugars BLOOD GLUCOSE MONITORING SUPPL 93075624920 No Longer Active Marvel Charles ANIMAL NUTRITION CONSULTANT Active ACCU-CHEK ROSA INVITR STRP use strips with device to check blood sugars 3 times daily GLUCOSE BLOOD 57051944226 No Longer Active Marvel MARROQUIN Active VERAPAMIL HCL ER 180 MG ORAL CR-TABS 1 pill by mouth twice daily, for migraine prevention VERAPAMIL HCL 04636594766 Active Alina Castaneda MD PhD Active CYCLOBENZAPRINE HCL 10 MG TABS 1 tablet by mouth three times daily, scheduled CYCLOBENZAPRINE HCL 24746754802 No Longer Active Alina Castaneda MD PhD Active HUMALOG 100 UNIT/ML SOLN Take 20 units with breakfast, 10u with lunch and suppetr. INSULIN LISPRO (HUMAN) 83298410182 No Longer Active Alina Castaneda MD PhD Active TRUETEST TEST STRP check sugars 4x/day GLUCOSE BLOOD 03726988140 No Longer Active Alina Castaneda MD PhD Active MORPHINE SULFATE 30 MG TABS 1 pill by mouth twice daily, for pain MORPHINE SULFATE 31468295117 Active Mima Erazo [employer] Active ACYCLOVIR 400 MG ORAL TABS 1 pill three times daily x 5 days, for cold sore outbreak ACYCLOVIR 59082493202 No Longer Active Alina Castaneda MD PhD Active PENICILLIN V POTASSIUM 500 MG TABS 1 pill by mouth three times daily PENICILLIN V POTASSIUM 79932958890 No Longer Active Alina Castaneda MD PhD Active UROXATRAL 10 MG [id number] Take 1 tablet by mouth daily ALFUZOSIN HCL 20906395936 No Longer Active Alina Castaneda MD PhD Active THIOTHIXENE 5 MG CAPS by mouth twice a day THIOTHIXENE 75477734604 No Longer Active Alina Castaneda MD PhD Active ZYPREXA 7.5 MG TABS 1 at HS OLANZAPINE 84512086516 No Longer Active Alina Castaneda MD PhD Active BD INSULIN SYRINGE 28G X 1/2" 1 ML MISC 1 four times per day INSULIN SYRINGE-NEEDLE U-100 98267248233 Active Marvel Thurstonari ANIMAL NUTRITION CONSULTANT Active DETROL LA 4 MG [id number]-HJD Take 1 tablet by mouth daily TOLTERODINE TARTRATE 00744778483 No Longer Active Alina Castaneda MD PhD Active TERESE CONTOUR TEST STRP monitor blood sugars 3x/day GLUCOSE BLOOD 13850969219 No Longer Active Alina Castaneda MD PhD Active EQL TRUETEST TEST STRP Test blood sugar TID GLUCOSE BLOOD 57153601251 No Longer Active Alina Castaneda MD PhD Active FLUTICASONE PROPIONATE 50 MCG/ACT SUSP 2 sprays each nostril qDay x 30 days FLUTICASONE PROPIONATE 64275544957 No Longer Active Alina Castaneda MD PhD Active IBUPROFEN 200 MG TABS 1 Q 6 hr. PRN IBUPROFEN 16569785527 No Longer Active Alina Castaneda MD PhD Active NIACIN ER 500 MG CR-TABS 4 qHS (for triglycerides) NIACIN 57688655502 No Longer Active Alina Castaneda MD PhD Active ALFUZOSIN HCL ER 10 MG [id number] 1 tablet daily ALFUZOSIN HCL 14706336942 Active Vanessa Hickey MD Active SAPHRIS 5 MG SUBL by mouth twice a day ASENAPINE MALEATE 38188779993 No Longer Active Marvel MARROQUIN Active ACETAMINOPHEN 500 MG TABS 2 Q 6 hr. PRN ACETAMINOPHEN 96717104078 No Longer Active Marvel Thurstonari LOPEZ Active ORPHENADRINE CITRATE ER 100 MG [id number] 1 every 12 hr. as needed ORPHENADRINE CITRATE 97311334193 No Longer Active Alina Castaneda MD PhD Active NIACIN CR 500 MG CR-TABS 2 qHS NIACIN 45817605221 No Longer Active Alina Castaneda MD PhD Active AMOXICILLIN 500 MG CAPS 2 po BID x 10 days AMOXICILLIN 21872338321 No Longer Active Alina Castaneda MD PhD Active HYDROCODONE-ACETAMINOPHEN 7.5-325 MG TABS 1 four times a day as needed for pain HYDROCODONE-ACETAMINOPHEN 91588045971 No Longer Active Alina Castaneda MD PhD Active DOXEPIN HCL 10 MG CAPS Take 1 tablet by mouth daily DOXEPIN HCL 13529071216 No Longer Active [facility] Active NAVANE 10 MG CAPS 1/2 tablet twice a day THIOTHIXENE No Longer Active Sal[facility] Active CYCLOBENZAPRINE HCL 10 MG TABS 1/2 tablet by mouth every 8 hours as needed for muscle spasms CYCLOBENZAPRINE HCL 33949624403 No Longer Active Alina Castaneda MD PhD Active BACTROBAN 2 % CREAM apply to ear and nose twice daily MUPIROCIN CALCIUM 57787343729 No Longer Active Alina Castaneda MD PhD Active HYDROCODONE-ACETAMINOPHEN 5-325 MG TABS take one tablet by mouth every four hours as needed for pain HYDROCODONE-ACETAMINOPHEN 19814086058 No Longer Active Alina Castaneda MD PhD Active ZOLPIDEM TARTRATE 10 MG TABS take at bedtime ZOLPIDEM TARTRATE 93087343432 Active Alina Castaneda MD PhD Active ZYPREXA 5 MG TABS take one tablet by mouth every evening OLANZAPINE 21332754535 No Longer Active Alina Castaneda MD PhD Active ALBUTEROL SULFATE 0.083 % NEBU SOLN one vial per nebulizer TID and PRN cough/ soa ALBUTEROL SULFATE 36313618148 No Longer Active Alina Castaneda MD PhD Active GUAIFENESIN 600 MG [id number]-JSC 1 tablet by mouth twice daily if needed for cough GUAIFENESIN 27022908178 No Longer Active Marvel MARROQUIN Active AZITHROMYCIN 500 MG SOLR 1 po q day AZITHROMYCIN 32885926135 No Longer Active Alina Castaneda MD PhD Active PROMETHAZINE-CODEINE 6.25-10 MG/5ML SYRP 1 tsp po q 6 hours prn cough PROMETHAZINE-CODEINE 19404417051 No Longer Active Alina Castaneda MD PhD Active CEFDINIR 300 MG CAPS by mouth twice a day CEFDINIR 03906088311 No Longer Active Alina Castaneda MD PhD Active METFORMIN HCL 500 MG [id number]-[id number] Take 3 tablets by mouth everyday METFORMIN HCL 20604516623 No Longer Active Alina Castaneda MD PhD Active LEVEMIR 100 UNIT/ML SOLN 90 units SQ qHS INSULIN DETEMIR 82011969851 No Longer Active Marvel MARROQUIN Active TOPROL XL 100 MG [id number]-GVY 1 @ HS METOPROLOL SUCCINATE 18607962897 No Longer Active Marvel MARROQUIN Active ALLOPURINOL 300 MG TABS Take one by mouth daily ALLOPURINOL 25756565669 Active Mima Erazo [employer]BS FARMWORKER Active ZYPREXA 10 MG TABS Take one by mouth daily OLANZAPINE 90673208956 No Longer Active Alina Castaneda MD PhD Active NOVOLOG 100 UNIT/ML SOLN 40 units with every meal INSULIN ASPART 07811685808 No Longer Active Alina Castaneda MD PhD Active VERAPAMIL HCL CR 120 MG TAB CR 1 qPM VERAPAMIL HCL 08649894234 No Longer Active Salina ROJAS Active ZYPREXA 15 MG TABS Take 1 tablet by mouth daily OLANZAPINE 85219185209 No Longer Active Marvel MARROQUIN Active LISINOPRIL 20 MG TABS 1 BID LISINOPRIL 29098542340 Active Alina Castaneda MD PhD Active ALBUTEROL SULFATE (2.5 MG/3ML) 0.083% NEBU 1 neb tid and prn cough ALBUTEROL SULFATE 44930573093 No Longer Active Alina Castaneda MD PhD Active TRAVATAN Z 0.004 % SOLN 1 gtt each eye daily TRAVOPROST 18141406065 Active CRYSTAL Suarez Active LANTUS 100 UNIT/ML SOLN 60 units sq q hs INSULIN GLARGINE 71023122073 No Longer Active CRYSTAL Suarez Active ALBUTEROL SULFATE (2.5 MG/3ML) 0.083% NEBU 1 neb tid and prn cough ALBUTEROL SULFATE (2.5 MG/3ML) 0.083% NEBU 355998 ALBUTEROL SULFATE Inactive ZYPREXA 15 MG TABS Take 1 tablet by mouth daily ZYPREXA 15 MG TABS 438810 OLANZAPINE Inactive VERAPAMIL HCL CR 120 MG TAB CR 1 qPM VERAPAMIL HCL CR 120 MG TAB CR VERAPAMIL HCL Inactive ZYPREXA 10 MG TABS Take one by mouth daily ZYPREXA 10 MG TABS 734365 OLANZAPINE Inactive TOPROL XL 100 MG [id number] 1 @ HS TOPROL XL 100 MG [id number]-XTB METOPROLOL SUCCINATE Inactive LEVEMIR 100 UNIT/ML SOLN 90 units SQ qHS LEVEMIR 100 UNIT/ML SOLN INSULIN DETEMIR Inactive PROMETHAZINE-CODEINE 6.25-10 MG/5ML SYRP 1 tsp po q 6 hours prn cough PROMETHAZINE-CODEINE 6.25-10 MG/5ML SYRP 489381 PROMETHAZINE- CODEINE Inactive GUAIFENESIN 600 MG [id number]-[id number] 1 tablet by mouth twice daily if needed for cough GUAIFENESIN 600 MG [id number]-MXY GUAIFENESIN Inactive ALBUTEROL SULFATE 0.083 % NEBU SOLN one vial per nebulizer TID and PRN cough/ soa ALBUTEROL SULFATE 0.083 % NEBU SOLN 993009 ALBUTEROL SULFATE Inactive ZYPREXA 5 MG TABS take one tablet by mouth every evening ZYPREXA 5 MG TABS 571558 OLANZAPINE Inactive HYDROCODONE-ACETAMINOPHEN 5-325 MG TABS take one tablet by mouth every four hours as needed for pain HYDROCODONE-ACETAMINOPHEN 5-325 MG TABS 880083 HYDROCODONE-ACETAMINOPHEN Inactive BACTROBAN 2 % CREAM apply to ear and nose twice daily BACTROBAN 2 % CREAM 707287 MUPIROCIN CALCIUM Inactive CYCLOBENZAPRINE HCL 10 MG TABS 1/2 tablet by mouth every 8 hours as needed for muscle spasms CYCLOBENZAPRINE HCL 10 MG TABS 804859 CYCLOBENZAPRINE HCL Inactive NAVANE 10 MG CAPS 1/2 tablet twice a day NAVANE 10 MG CAPS THIOTHIXENE Inactive DOXEPIN HCL 10 MG CAPS Take 1 tablet by mouth daily DOXEPIN HCL 10 MG CAPS 9378923 DOXEPIN HCL Inactive HYDROCODONE-ACETAMINOPHEN 7.5-325 MG TABS 1 four times a day as needed for pain HYDROCODONE-ACETAMINOPHEN 7.5-325 MG TABS 034169 HYDROCODONE-ACETAMINOPHEN Inactive NIACIN CR 500 MG CR-TABS 2 qHS NIACIN CR 500 MG CR- TABS NIACIN Inactive ORPHENADRINE CITRATE ER 100 MG [id number]-[id number] 1 every 12 hr. as needed ORPHENADRINE CITRATE ER 100 MG [id number]-STJ ORPHENADRINE CITRATE Inactive ACETAMINOPHEN 500 MG TABS 2 Q 6 hr. PRN ACETAMINOPHEN 500 MG TABS 292864 ACETAMINOPHEN Inactive SAPHRIS 5 MG SUBL by mouth twice a day SAPHRIS 5 MG SUBL ASENAPINE MALEATE Inactive NIACIN ER 500 MG CR-TABS 4 qHS (for triglycerides) NIACIN ER 500 MG CR-TABS NIACIN Inactive IBUPROFEN 200 MG TABS 1 Q 6 hr. PRN IBUPROFEN 200 MG TABS 620921 IBUPROFEN Inactive FLUTICASONE PROPIONATE 50 MCG/ACT SUSP 2 sprays each nostril qDay x 30 days FLUTICASONE PROPIONATE 50 MCG/ACT SUSP 861220 FLUTICASONE PROPIONATE Inactive EQL TRUETEST TEST STRP Test blood sugar TID EQL TRUETEST TEST STRP GLUCOSE BLOOD Inactive TERESE CONTOUR TEST STRP monitor blood sugars 3x/day TERESE CONTOUR TEST STRP GLUCOSE BLOOD Inactive DETROL LA 4 MG [id number] Take 1 tablet by mouth daily DETROL LA 4 MG [id number] TOLTERODINE TARTRATE Inactive ZYPREXA 7.5 MG TABS 1 at HS ZYPREXA 7.5 MG TABS 035292 OLANZAPINE Inactive THIOTHIXENE 5 MG CAPS by mouth twice a day THIOTHIXENE 5 MG CAPS 651048 THIOTHIXENE Inactive UROXATRAL 10 MG [id number]-KBN Take 1 tablet by mouth daily UROXATRAL 10 MG WH31A-CLJ ALFUZOSIN HCL Inactive ACYCLOVIR 400 MG ORAL TABS 1 pill three times daily x 5 days, for cold sore outbreak ACYCLOVIR 400 MG ORAL TABS 864802 ACYCLOVIR Inactive TRUETEST TEST STRP check sugars 4x/day TRUETEST TEST STRP GLUCOSE BLOOD Inactive HUMALOG 100 UNIT/ML SOLN Take 20 units with breakfast, 10u with lunch and suppetr. HUMALOG 100 UNIT/ML SOLN INSULIN LISPRO ( HUMAN) Inactive CYCLOBENZAPRINE HCL 10 MG TABS 1 tablet by mouth three times daily, scheduled CYCLOBENZAPRINE HCL 10 MG TABS 633189 CYCLOBENZAPRINE HCL Inactive ACCU-CHEK ROSA INVITR STRP use strips with device to check blood sugars 3 times daily ACCU-CHEK ROSA INVITR STRP GLUCOSE BLOOD Inactive ACCU-CHEK ROSA UZMA Use device to check blood sugars ACCU-CHEK ROSA UZMA BLOOD GLUCOSE MONITORING SUPPL Inactive FLUVOXAMINE MALEATE 100 MG ORAL TABS Take 1/2 tab at noon FLUVOXAMINE MALEATE 100 MG ORAL TABS 906350 FLUVOXAMINE MALEATE Inactive FLUVOXAMINE MALEATE 100 MG TABS Take one (1) tablet by mouth am, 1/2 at noon FLUVOXAMINE MALEATE 100 MG TABS 827072 FLUVOXAMINE MALEATE Inactive BACTROBAN 2 % CREAM Apply to affected area BID for up to 10 days BACTROBAN 2 % CREAM 650576 MUPIROCIN CALCIUM Inactive NOVOFINE 32G X 6 MM MISC use one four times per day NOVOFINE 32G X 6 MM MISC INSULIN PEN NEEDLE Inactive TRAZODONE HCL 100 MG ORAL TABS 1 tab by mouth for sleep TRAZODONE HCL 100 MG ORAL TABS 488493 TRAZODONE HCL Inactive LOVAZA 1 GM CAPS 4 daily (for triglycerides) LOVAZA 1 GM CAPS 362939 ZHDDE-3-DUUZ ETHYL ESTERS Inactive METFORMIN HCL ER 500 MG TN97A-LCW Take three tablets by mouth everyday METFORMIN HCL ER 500 MG PI48V-BWN METFORMIN HCL Inactive METOPROLOL SUCCINATE 100 MG AI78V-LUG 1 by mouth daily for blood pressure METOPROLOL SUCCINATE 100 MG LU94A-XAD METOPROLOL SUCCINATE Inactive AMITIZA 24 MCG ORAL CAPS Take one capsule BID for constipation. AMITIZA 24 MCG ORAL CAPS LUBIPROSTONE Inactive TOLTERODINE TARTRATE 2 MG TABS 1 pill twice daily, for bladder TOLTERODINE TARTRATE 2 MG TABS 332149 TOLTERODINE TARTRATE Inactive COLACE 100 MG CAPS 1 pill by mouth twice daily, for constipation COLACE 100 MG CAPS 9992743 DOCUSATE SODIUM Inactive CEFDINIR 300 MG CAPS by mouth twice a day CEFDINIR 300 MG CAPS 358079 CEFDINIR Inactive AZITHROMYCIN 500 MG SOLR 1 po q day AZITHROMYCIN 500 MG SOLR 99049767679 AZITHROMYCIN Inactive AMOXICILLIN 500 MG CAPS 2 po BID x 10 days AMOXICILLIN 500 MG CAPS 703857 AMOXICILLIN Inactive PENICILLIN V POTASSIUM 500 MG TABS 1 pill by mouth three times daily PENICILLIN V POTASSIUM 500 MG TABS 847307 PENICILLIN V POTASSIUM Inactive KEFLEX 500 MG CAP 1 po BID x 7 days KEFLEX 500 MG CAP 300393 CEPHALEXIN Inactive Immunizations Vaccine Administration Date Value [...] Fluvirin, Fluarix, Agriflu(>=18 yo)) Fluzone (>3 yrs.) [[id number]] Influenza, seasonal, injectable pneumococcal immunization administered Pneumovax [...] Panel - Chemistry sodium, serum 137 mmol/L 084-435 5293/10/12 potassium, serum 4.8 mmol/L 3.5-5.2 chloride, serum 102 mmol/L 98-107 carbon dioxide, venous blood 27.6 mmol/L 21.0-32.0 blood glucose 168 mg/dL 65-110 calcium, serum 9.0 mg/dL 8.5-10.1 urea nitrogen, blood 15 mg/dL 7-18 creatinine, serum 1.04 mg/dL 0.55-1.30 sodium, serum 138 mmol/L 876-247 6975/11/11 potassium, serum 4.7 mmol/L 3.5-5.2 chloride, serum [...] % 11.6-14.8 platelet count 240 10^3/MM^3 10*3/mm3 110-400 6272/11/11 leukocyte count, blood 9.6 10^3/MM^3 10*3/mm3 4.6-10.2 [...] 4.7 mg/dL 2.6-7.2 cholesterol, serum 142 mg/dL 414-430 0567/06/26 triglyceride, serum, fasting 272 mg/dL 30-200 HDL [...] negative Encounters Code Encounter Date Provider Facility CPT-61076 Level 3 Est. Patient 16:27:51 CDT Mima Erazo [facility]-65680 Level 3 Est. Patient 14:39:00 NETWORK OPERATIONS PROJECT MANAGER Vanessa Hickey MD [facility]-35692 Level 2 Est. Patient 18:43:34 CDT Mima Erazo [facility] CPT-10993 Level 3 Est. Patient 16:22:09 CDT Cherelle Avila [facility] CPT-11456 Level 4 Est. Patient 17:55:14 CDT Mima Erazo [facility]-65267 Level 2 Est. Patient 17:13:21 CDT Alina Castaneda MD [facility]-53143 Level 3 Est. Patient 14:46:15 CDT Vanessa Hickey MD [facility]-02782 Level 3 Est. Patient 09:34:56 CDT lAina Castaneda MD [facility]99503 Level 3 Est. Patient 21:40:19 CDT Mima Erazo [facility]-72627 Level 3 Est. Patient 09:26:40 CDT Marvel Charles [facility]-22918 Level 3 Est. Patient 12:36:43 CDT Vanessa Hickey MD [facility]-20696 Level 3 Est. Patient 12:57:49 CDT Vanessa Hickey MD [facility]-93113 Level 3 Est. Patient 00:28:25 CDT Alina Castaneda MD [facility]11917 Level 2 Est. Patient 12:52:14 CDT Alina Castaneda MD [facility]56223 Level 3 Est. Patient 11:51:18 NETWORK OPERATIONS PROJECT MANAGER Alian Castaneda MD [facility]-70267 Level 3 Est. Patient 10:09:22 NETWORK OPERATIONS PROJECT MANAGER Alina Castaneda MD [facility]-26793 Level 3 Est. Patient 14:36:26 NETWORK OPERATIONS PROJECT MANAGER Marvel Charles [facility]-77134 Level 3 Est. Patient 13:34:47 NETWORK OPERATIONS PROJECT MANAGER Alina Castaneda MD [facility]-41721 Level 3 Est. Patient 19:52:08 NETWORK OPERATIONS PROJECT MANAGER Alina Castaneda MD [facility]-98354 Level 3 Est. Patient 10:01:51 NETWORK OPERATIONS PROJECT MANAGER Marvel Charles [facility]-82065 Level 3 Est. Patient 21:54:06 CDT Vanessa Hickey MD [facility]-74784 Level 3 Est. Patient 08:54:46 CDT Alina Castaneda MD [facility]-57986 Level 3 Est. Patient 09:32:11 CDT Marvel Charles [facility]-43216 Level 3 Est. Patient 12:02:49 CDT Alina Castaneda MD [facility]-15753 Level 3 Est. Patient 19:17:33 CDT Alina Castaneda MD [facility]-60316 Level 3 Est. Patient 13:19:10 CDT Marvel Charles [facility]-87443 Level 3 Est. Patient 08:20:05 CDT Alina Castaneda MD [facility]79407 Level 3 Est. Patient 15:17:18 CDT Alina Castaneda MD [facility]-71541 Level 3 Est. Patient 14:25:36 NETWORK OPERATIONS PROJECT MANAGER Marvel Charles [facility]-81907 Level 3 Est. Patient 10:09:15 NETWORK OPERATIONS PROJECT MANAGER Marvel Charles [facility] CPT-11339 Level 3 Est. Patient 21:28:43 CDT Alina Castaneda MD [facility]-34423 Level 3 Est. Patient 15:20:11 CDT Marvel Thurstonestela [facility] CPT-16639 Level 4 Est. Patient 19:08:12 CDT Alina Castaneda MD [facility] CPT-47871 Level 3 Est. Patient 15:06:39 CDT Marvel Thurstonestela [facility] CPT-05426 Level 4 Est. Patient 17:48:15 CDT Alina Castaneda MD [facility]-51703 Level 3 Est. Patient 14:53:49 CDT Alina Castaneda MD [facility] CPT-85639 Level 3 Est. Patient 09:35:16 CDT Alina Castaneda MD [facility]-20084 Level 3 Est. Patient 12:23:22 CDT Alina Castaneda MD [facility] CPT-00846 Level 3 Est. Patient 16:19:15 CDT Alina Castaneda MD [facility] CPT-42324 Level 3 Est. Patient 21:39:56 NETWORK OPERATIONS PROJECT MANAGER Alina Castaneda MD [facility] CPT-66105 Level 4 Est. Patient 14:12:56 NETWORK OPERATIONS PROJECT MANAGER Alina Castaneda MD [facility]-70486 Level 2 Est. Patient 15:34:57 NETWORK OPERATIONS PROJECT MANAGER Alina Castaneda MD [facility] CPT-13944 Level 3 Est. Patient 12:17:04 NETWORK OPERATIONS PROJECT MANAGER Alina Castaneda MD [facility]-64142 Level 3 Est. Patient 09:18:18 NETWORK OPERATIONS PROJECT MANAGER Brookslashondanivia Araceli [facility]-69182 Level 2 Est. Patient 21:50:24 CDT Alina Castaneda MD [facility]44614 Level 3 Est. Patient 09:17:28 CDT Marvel Charles [facility]-34205 Level 4 Est. Patient 18:54:02 CDT Alina Castaneda MD [facility]49019 Level 3 Est. Patient 10:47:10 CDT Alina Castaneda MD [facility]36056 Level 3 Est. Patient 09:22:20 CDT Brookslashondanivia Araceli [facility]-22339 Level 3 Est. Patient 16:39:43 CDT Brooksjohn Charles [facility]-87039 Level 3 Est. Patient 16:05:16 CDT Al[facility] [facility] Level 3 Est. Patient 00:29:15 CDT Alina Castaneda MD [facility]47253 Level 3 Est. Patient 10:49:22 NETWORK OPERATIONS PROJECT MANAGER Marvel Charles [facility]89591 Level 3 Est. Patient 21:30:19 NETWORK OPERATIONS PROJECT MANAGER Alina Castaneda MD [facility]-25155 Level 4 Est. Patient 17:04:11 NETWORK OPERATIONS PROJECT MANAGER Marvel Charles [facility]13778 Level 3 Est. Patient 15:34:11 NETWORK OPERATIONS PROJECT MANAGER Marvel Charles [facility]-04023 Level 2 Est. Patient 12:51:58 NETWORK OPERATIONS PROJECT MANAGER Alina Castaneda MD PhD [facility] CPT-50963 Level 3 Est. Patient 13:20:01 NETWORK OPERATIONS PROJECT MANAGER Alina Castaneda MD PhD [facility] CPT-15606 Level 3 Est. Patient 09:23:35 CDT Alina Castaneda MD PhD [facility] Procedures Code Procedure Name Date Entry Date Standard Description CPT-26707 Bladder Scan 14:39:01 NETWORK OPERATIONS PROJECT MANAGER CPT-TCMM Transitional Care Mgmt-Moderate 10:30:19 NETWORK OPERATIONS PROJECT MANAGER CPT-53918 Bladder Scan 12:36:44 CDT CPT-70737 Bladder Scan 21:54:06 CDT CPT-G0008 Administration of Influenza Virus Vaccine 13:05:26 CDT CPT-66814 Fluzone Quadrivalent Intramuscular Suspension 0.5 ML 13: 05:26 CDT CPT-55034 Administration single or combination vaccine inc oral 11 :49:51 CDT CPT-66574 Pneumovax 11:49:51 CDT CPT-82659 Ribs unilateral 2V 12:37:22 NETWORK OPERATIONS PROJECT MANAGER CPT-69357 Chest 2V Frontal and Lat 17:15:26 CDT CPT-80302 Abx/Therapy Injection 18:54:02 CDT CPT-J0696 Rocephin 1000 mg (Ceftriaxone) 16:00:32 CDT CPT-71870 Chest 2V Frontal and Lat 15:26:45 CDT CPT-57021 Chest 2V Frontal and Lat 10:23:27 CDT CPT-33648 Venipuncture Draw Fee 10:11:00 CDT CPT-48517 Administration single or combination vaccine inc oral 11 :56:38 CDT CPT-71493 Influenza split virus > age 3 11:56:38 CDT CPT-26268 Venipuncture Draw Fee 08:49:54 NETWORK OPERATIONS PROJECT MANAGER CPT-89072 EKG Trac and Interp 17:54:19 NETWORK OPERATIONS PROJECT MANAGER
--- OUTSIDE RECORDS SUMMARY | 2018-07-02 18:15 | XMS REPORT | Clinical Summary ---
[...] Benign paroxysmal positional vertigo 386.11 Active Mima Kacye DELIVERY AIDE Benign paroxysmal positional vertigo Vertigo, benign paroxysmal position 386.11 Inactive Mima Kacey DELIVERY AIDE Benign paroxysmal positional vertigo High-risk sexual behavior [...] 10u lunch and supper INSULIN LISPRO (HUMAN) 82192800283 Active Marvel Araceli MARROQUIN Active LATUDA 120 MG ORAL TABS 1 pill by mouth nightly LURASIDONE HCL 87614490708 Active Alina Castaneda MD PhD Active COLACE 100 MG CAPS 1 pill by mouth twice daily, for constipation DOCUSATE SODIUM 70393432086 Active Alina Castaneda MD PhD Active TRUETEST TEST STRP check blood sugars 3x/day GLUCOSE BLOOD 62331168171 Active Malnivia 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 INSTALLER TECHNICIAN Active ACCU-CHEK ROSA UZMA Use device to check blood sugars BLOOD GLUCOSE MONITORING SUPPL 69912965139 No Longer Active Marvel 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 INSTALLER TECHNICIAN Active ACCU-CHEK ROSA INVITR STRP use strips with device to check blood sugars 3 times daily GLUCOSE BLOOD 38565255355 No Longer Active Brooksnivia Araceli MENDOZAP Active VERAPAMIL HCL ER 180 MG ORAL CR-TABS 1 pill by mouth twice daily, for migraine prevention VERAPAMIL HCL 61070027402 Active Alina Castaneda MD PhD Active CYCLOBENZAPRINE HCL 10 MG TABS 1 tablet by mouth three times daily, scheduled CYCLOBENZAPRINE HCL 32342265048 No Longer Active Alina Castaneda MD PhD Active HUMALOG 100 UNIT/ML SOLN Take 20 units with breakfast, 10u with lunch and suppetr. INSULIN LISPRO (HUMAN) 40497284458 No Longer Active Alina Castaneda MD PhD Active TRUETEST TEST STRP check sugars 4x/day GLUCOSE BLOOD 36296665533 No Longer Active Alina Castaneda MD PhD Active MORPHINE SULFATE 30 MG TABS 1 pill by mouth twice daily, for pain MORPHINE SULFATE 81466728362 Active Alina Castaneda MD PhD Active ACYCLOVIR 400 MG ORAL TABS 1 pill three times daily x 5 days, for cold sore outbreak ACYCLOVIR 22943230929 No Longer Active Alina Castaneda MD PhD Active PENICILLIN V POTASSIUM 500 MG TABS 1 pill by mouth three times daily PENICILLIN V POTASSIUM 58022988801 No Longer Active Alina Castaneda MD PhD Active UROXATRAL 10 MG [id number]-[id number] Take 1 tablet by mouth daily ALFUZOSIN HCL 72061872419 No Longer Active Alina Castaneda MD PhD Active THIOTHIXENE 5 MG CAPS by mouth twice a day THIOTHIXENE 18307285791 No Longer Active Alina Castaneda MD PhD Active ZYPREXA 7.5 MG TABS 1 at HS OLANZAPINE 57688077665 No Longer Active Alina Castaneda MD PhD Active LEVEMIR 100 UNIT/ML SOLN Take 70 u at 7-8pm INSULIN DETEMIR 97412236394 Active Maliheh Ziglari INSTALLER TECHNICIAN Active BD INSULIN SYRINGE 28G X 1/2" 1 ML MISC 1 four times per day INSULIN SYRINGE-NEEDLE U-100 19590951662 Active Mallashondaeh Ziglari INSTALLER TECHNICIAN Active TOLTERODINE TARTRATE 2 MG TABS 1 pill twice daily, for bladder TOLTERODINE TARTRATE 17965658276 Active Alina Castaneda MD PhD Active DETROL LA 4 MG [id number] Take 1 tablet by mouth daily TOLTERODINE TARTRATE 15105522049 No Longer Active Alina Castaneda MD PhD Active HYDROCODONE-ACETAMINOPHEN 5-325 MG TABS 2 tabs by mouth three times daily as needed for pain HYDROCODONE-ACETAMINOPHEN 39356318517 Active Alina Castaneda MD PhD Active TERESE CONTOUR TEST STRP monitor blood sugars 3x/day GLUCOSE BLOOD 49174155426 No Longer Active Alina Castaneda MD PhD Active EQL TRUETEST TEST STRP Test blood sugar TID GLUCOSE BLOOD 28997096714 No Longer Active Alina Castaneda MD PhD Active FLUTICASONE PROPIONATE 50 MCG/ACT SUSP 2 sprays each nostril qDay x 30 days FLUTICASONE PROPIONATE 67289222202 No Longer Active Alina Castaneda MD PhD Active IBUPROFEN 200 MG TABS 1 Q 6 hr. PRN IBUPROFEN 19693948525 No Longer Active Alina Castaneda MD PhD Active NIACIN ER 500 MG CR-TABS 4 qHS (for triglycerides) NIACIN 31066248281 No Longer Active Alina Castaneda MD PhD Active ALFUZOSIN HCL ER 10 MG [id number] 1 tablet daily ALFUZOSIN HCL 21501012124 Active Vanessa Hickey MD Active CLONAZEPAM 1 MG TABS 1 pill by mouth three times daily CLONAZEPAM 30120386399 Active Alina Castaneda MD PhD Active LOVAZA 1 GM CAPS 4 daily (for triglycerides) [id number] ETHYL ESTERS 81371824009 Active Alina Castaneda MD PhD Active SAPHRIS 5 MG SUBL by mouth twice a day ASENAPINE MALEATE 54547265155 No Longer Active Marvel MARROQUIN Active ACETAMINOPHEN 500 MG TABS 2 Q 6 hr. PRN ACETAMINOPHEN 34903531302 No Longer Active Marvel MARROQUIN Active ORPHENADRINE CITRATE ER 100 MG [id number] 1 every 12 hr. as needed ORPHENADRINE CITRATE 24362484040 No Longer Active Alina Castaneda MD PhD Active NIACIN CR 500 MG CR-TABS 2 qHS NIACIN 39719444650 No Longer Active Alina Castaneda MD PhD Active AMOXICILLIN 500 MG CAPS 2 po BID x 10 days AMOXICILLIN 67356239867 No Longer Active Alina Castaneda MD PhD Active HYDROCODONE-ACETAMINOPHEN 7.5-325 MG TABS 1 four times a day as needed for pain HYDROCODONE-ACETAMINOPHEN 90064860283 No Longer Active Alina Castaneda MD PhD Active METFORMIN HCL ER 500 MG [id number]-YYX Take three tablets by mouth everyday METFORMIN HCL 56951992039 Active Marvel Mackenzieglestela INSTALLER TECHNICIAN Active DOXEPIN HCL 10 MG CAPS Take 1 tablet by mouth daily DOXEPIN HCL 17613949884 No Longer Active Salina Han [facility] Active NAVANE 10 MG CAPS 1/2 tablet twice a day THIOTHIXENE No Longer Active Salina Han A Active CYCLOBENZAPRINE HCL 10 MG TABS 1/2 tablet by mouth every 8 hours as needed for muscle spasms CYCLOBENZAPRINE HCL 40824218664 No Longer Active Alina Castaneda MD PhD Active BACTROBAN 2 % CREAM apply to ear and nose twice daily MUPIROCIN CALCIUM 40183736146 No Longer Active Alina Casatneda MD PhD Active HYDROCODONE-ACETAMINOPHEN 5-325 MG TABS take one tablet by mouth every four hours as needed for pain HYDROCODONE-ACETAMINOPHEN 51902184996 No Longer Active Alina Castaneda MD PhD Active ZOLPIDEM TARTRATE 10 MG TABS take at bedtime ZOLPIDEM TARTRATE 78282300779 Active Alina Castaneda MD PhD Active ZYPREXA 5 MG TABS take one tablet by mouth every evening OLANZAPINE 66600032583 No Longer Active Alina Castaneda MD PhD Active ALBUTEROL SULFATE 0.083 % NEBU SOLN one vial per nebulizer TID and PRN cough/ soa ALBUTEROL SULFATE 97597929697 No Longer Active Alina Castaneda MD PhD Active GUAIFENESIN 600 MG [id number]-QPJ 1 tablet by mouth twice daily if needed for cough GUAIFENESIN 76401917681 No Longer Active Marvel Charles [facility] Active AZITHROMYCIN 500 MG SOLR 1 po q day AZITHROMYCIN 13210404425 No Longer Active Alina Castaneda MD PhD Active METOPROLOL SUCCINATE 100 MG [id number]-WLH 1 by mouth daily for blood pressure METOPROLOL SUCCINATE 88495063956 Active Alina Castaneda MD PhD Active PROMETHAZINE-CODEINE 6.25-10 MG/5ML SYRP 1 tsp po q 6 hours prn cough PROMETHAZINE-CODEINE 23985251573 No Longer Active Alina Castaneda MD PhD Active CEFDINIR 300 MG CAPS by mouth twice a day CEFDINIR 01420958131 No Longer Active Alina Castaneda MD PhD Active METFORMIN HCL 500 MG [id number]-JPU Take 3 tablets by mouth everyday METFORMIN HCL 11786630921 No Longer Active Alina Castaneda MD PhD Active LEVEMIR 100 UNIT/ML SOLN 90 units SQ qHS INSULIN DETEMIR 74507589939 No Longer Active Marvel MARROQUIN Active TOPROL XL 100 MG GS88H-ARR 1 @ HS METOPROLOL SUCCINATE 36846784448 No Longer Active Marvel MARROQUIN Active ALLOPURINOL 300 MG TABS Take one by mouth daily ALLOPURINOL 45732426440 Active Alina Castaneda MD PhD Active ZYPREXA 10 MG TABS Take one by mouth daily OLANZAPINE 73887320916 No Longer Active Alina Castaneda MD PhD Active NOVOLOG 100 UNIT/ML SOLN 40 units with every meal INSULIN ASPART 88773623417 No Longer Active Alina Castaneda MD PhD Active VERAPAMIL HCL CR 120 MG TAB CR 1 qPM VERAPAMIL HCL 20105997049 No Longer Active Salina Han A Active ZYPREXA 15 MG TABS Take 1 tablet by mouth daily OLANZAPINE 94494051397 No Longer Active Marvel MARROQUIN Active LISINOPRIL 20 MG TABS 1 BID LISINOPRIL 30249915658 Active Alina Castaneda MD PhD Active ALBUTEROL SULFATE (2.5 MG/3ML) 0.083% NEBU 1 neb tid and prn cough ALBUTEROL SULFATE 94831477621 No Longer Active Alina Castaneda MD PhD Active FLUVOXAMINE MALEATE 100 MG TABS Take one (1) tablet by mouth am, 1/2 at noon, 1 pm FLUVOXAMINE MALEATE 27839619324 Active Alina Castaneda MD PhD Active TRAVATAN Z 0.004 % SOLN 1 gtt each eye daily TRAVOPROST 51769714316 Active CRYSTAL Suarez Active LANTUS 100 UNIT/ML SOLN 60 units sq q hs INSULIN GLARGINE 06130790347 No Longer Active CRYSTAL Suarez Active ALBUTEROL SULFATE (2.5 MG/3ML) 0.083% NEBU 1 neb tid and prn cough ALBUTEROL SULFATE (2.5 MG/3ML) 0.083% NEBU 128055 ALBUTEROL SULFATE Inactive ZYPREXA 15 MG TABS Take 1 tablet by mouth daily ZYPREXA 15 MG TABS 350271 OLANZAPINE Inactive VERAPAMIL HCL CR 120 MG TAB CR 1 qPM VERAPAMIL HCL CR 120 MG TAB CR VERAPAMIL HCL Inactive ZYPREXA 10 MG TABS Take one by mouth daily ZYPREXA 10 MG TABS 924984 OLANZAPINE Inactive TOPROL XL 100 MG [id number] 1 @ HS TOPROL XL 100 MG PP74Z-XDO METOPROLOL SUCCINATE Inactive LEVEMIR 100 UNIT/ML SOLN 90 units SQ qHS LEVEMIR 100 UNIT/ML SOLN INSULIN DETEMIR Inactive PROMETHAZINE-CODEINE 6.25-10 MG/5ML SYRP 1 tsp po q 6 hours prn cough PROMETHAZINE-CODEINE 6.25-10 MG/5ML SYRP 922202 PROMETHAZINE- CODEINE Inactive GUAIFENESIN 600 MG PW37H-QFE 1 tablet by mouth twice daily if needed for cough GUAIFENESIN 600 MG [id number] GUAIFENESIN Inactive ALBUTEROL SULFATE 0.083 % NEBU SOLN one vial per nebulizer TID and PRN cough/ soa ALBUTEROL SULFATE 0.083 % NEBU SOLN 272099 ALBUTEROL SULFATE Inactive ZYPREXA 5 MG TABS take one tablet by mouth every evening ZYPREXA 5 MG TABS 473255 OLANZAPINE Inactive HYDROCODONE-ACETAMINOPHEN 5-325 MG TABS take one tablet by mouth every four hours as needed for pain HYDROCODONE-ACETAMINOPHEN 5-325 MG TABS 045359 HYDROCODONE-ACETAMINOPHEN Inactive BACTROBAN 2 % CREAM apply to ear and nose twice daily BACTROBAN 2 % CREAM 081855 MUPIROCIN CALCIUM Inactive CYCLOBENZAPRINE HCL 10 MG TABS 1/2 tablet by mouth every 8 hours as needed for muscle spasms CYCLOBENZAPRINE HCL 10 MG TABS 160371 CYCLOBENZAPRINE HCL Inactive NAVANE 10 MG CAPS 1/2 tablet twice a day NAVANE 10 MG CAPS THIOTHIXENE Inactive DOXEPIN HCL 10 MG CAPS Take 1 tablet by mouth daily DOXEPIN HCL 10 MG CAPS 9804846 DOXEPIN HCL Inactive HYDROCODONE-ACETAMINOPHEN 7.5-325 MG TABS 1 four times a day as needed for pain HYDROCODONE-ACETAMINOPHEN 7.5-325 MG TABS 245368 HYDROCODONE-ACETAMINOPHEN Inactive NIACIN CR 500 MG CR-TABS 2 qHS NIACIN CR 500 MG CR- TABS NIACIN Inactive ORPHENADRINE CITRATE ER 100 MG [id number] 1 every 12 hr. as needed ORPHENADRINE CITRATE ER 100 MG [id number]-CQR ORPHENADRINE CITRATE Inactive ACETAMINOPHEN 500 MG TABS 2 Q 6 hr. PRN ACETAMINOPHEN 500 MG TABS 371994 ACETAMINOPHEN Inactive SAPHRIS 5 MG SUBL by mouth twice a day SAPHRIS 5 MG SUBL ASENAPINE MALEATE Inactive NIACIN ER 500 MG CR-TABS 4 qHS (for triglycerides) NIACIN ER 500 MG CR-TABS NIACIN Inactive IBUPROFEN 200 MG TABS 1 Q 6 hr. PRN IBUPROFEN 200 MG TABS 112970 IBUPROFEN Inactive FLUTICASONE PROPIONATE 50 MCG/ACT SUSP 2 sprays each nostril qDay x 30 days FLUTICASONE PROPIONATE 50 MCG/ACT SUSP 635736 FLUTICASONE PROPIONATE Inactive EQL TRUETEST TEST STRP Test blood sugar TID EQL TRUETEST TEST STRP GLUCOSE BLOOD Inactive TERESE CONTOUR TEST STRP monitor blood sugars 3x/day TERESE CONTOUR TEST STRP GLUCOSE BLOOD Inactive DETROL LA 4 MG [id number]-[id number] Take 1 tablet by mouth daily DETROL LA 4 MG [id number] TOLTERODINE TARTRATE Inactive ZYPREXA 7.5 MG TABS 1 at HS ZYPREXA 7.5 MG TABS 747242 OLANZAPINE Inactive THIOTHIXENE 5 MG CAPS by mouth twice a day THIOTHIXENE 5 MG CAPS 411078 THIOTHIXENE Inactive UROXATRAL 10 MG GP09I-QZY Take 1 tablet by mouth daily UROXATRAL 10 MG BY94A-CGG ALFUZOSIN HCL Inactive ACYCLOVIR 400 MG ORAL TABS 1 pill three times daily x 5 days, for cold sore outbreak ACYCLOVIR 400 MG ORAL TABS 987981 ACYCLOVIR Inactive TRUETEST TEST STRP check sugars 4x/day TRUETEST TEST STRP GLUCOSE BLOOD Inactive HUMALOG 100 UNIT/ML SOLN Take 20 units with breakfast, 10u with lunch and suppetr. HUMALOG 100 UNIT/ML SOLN INSULIN LISPRO ( HUMAN) Inactive CYCLOBENZAPRINE HCL 10 MG TABS 1 tablet by mouth three times daily, scheduled CYCLOBENZAPRINE HCL 10 MG TABS 113066 CYCLOBENZAPRINE HCL Inactive ACCU-CHEK ROSA INVITR STRP use strips with device to check blood sugars 3 times daily ACCU-CHEK ROSA INVITR STRP GLUCOSE BLOOD Inactive ACCU-CHEK ROSA UZMA Use device to check blood sugars ACCU-CHEK ROSA UZMA BLOOD GLUCOSE MONITORING SUPPL Inactive CEFDINIR 300 MG CAPS by mouth twice a day CEFDINIR 300 MG CAPS 886832 CEFDINIR Inactive AZITHROMYCIN 500 MG SOLR 1 po q day AZITHROMYCIN 500 MG SOLR 563245 AZITHROMYCIN Inactive AMOXICILLIN 500 MG CAPS 2 po BID x 10 days AMOXICILLIN 500 MG CAPS 550211 AMOXICILLIN Inactive PENICILLIN V POTASSIUM 500 MG TABS 1 pill by mouth three times daily PENICILLIN V POTASSIUM 500 MG TABS 745388 PENICILLIN V POTASSIUM Inactive Immunizations Vaccine Administration [...] Fluvirin, Fluarix, Agriflu(>=18 yo)) Fluzone (>3 yrs.) [[id number]] Influenza, seasonal, injectable pneumococcal immunization administered Pneumovax [...] HGBA1C - Chemistry sodium, serum 131 mmol/L 680-522 3476/12/30 potassium, serum 5.0 mmol/L 3.5-5.2 chloride, serum 95 mmol/L 98-107 carbon dioxide, venous blood 26.7 mmol/L 21.0-32.0 blood glucose 112 mg/dL 65-110 calcium, serum 9.2 mg/dL 8.5-10.1 urea nitrogen, blood 12 mg/dL 7-18 creatinine, serum 1.10 mg/dL 0.60-1.30 hemoglobin A1C, blood, as % of total hemoglobin 5.8 % 4.3-6.0 Lab Report: Basic Metabolic Panel, HGBA1C, MICROALBUMIN - Chemistry sodium, serum 137 mmol/L 326-370 3451/05/19 potassium, serum 5.2 mmol/L 3.5-5.2 chloride, serum [...] microalbumin, urine 10 0-19 Lab Report: Chlamydia/GC APTIMA/97322, HIV-1/2 Agn/Dominga/07205, RPR (DX) W ... - Chemistry hepatitis B surface antigen NON-REACTIVE NON-REACTIVE Lab Report: Chlamydia/GC APTIMA/25986, HIV-1/2 Agn/Dominga/68257, RPR (DX) W ... - Lab chlamydia DNA probe NOT DETECTED NOT DETECTED Lab Report: Chlamydia/GC APTIMA/84903, HIV-1/2 Agn/Dominga/28805, RPR (DX) W ... - Microbiology Neisseria gonorrhoeae DNA probe NOT DETECTED NOT DETECTED Lab Report: Chlamydia/GC APTIMA/64469, HIV-1/2 Agn/Dominga/67940, RPR (DX) W ... - Serology rapid plasma reagin antibody titer NON-REACTIVE NON-REACTIVE Lab Report: Comp. Metabolic Panel - Chemistry sodium, serum 127 mmol/L 620-873 8974/10/27 potassium, serum 4.1 mmol/L 3.5-5.2 chloride, serum [...] CBC - Chemistry cholesterol, serum 131 mg/dL 295-604 9399/06/03 triglyceride, serum, fasting 383 mg/dL 30-200 HDL [...] 4.7 mg/dL 2.6-7.2 cholesterol, serum 142 mg/dL 454-411 8341/06/26 triglyceride, serum, fasting 272 mg/dL 30-200 HDL [...] mg/dL Encounters Code Encounter Date Provider Facility CPT-32868 Level 3 Est. Patient 14:46:15 JEANNINE Hickey MD [facility] CPT-02323 Level 3 Est. Patient 09:34:56 CDT Alina Castaneda MD [facility]-30762 Level 3 Est. Patient 21:40:19 CDT Mima Erazo APRN [facility]-64189 Level 3 Est. Patient 09:26:40 CDT Marvel Charles [facility]-95603 Level 3 Est. Patient 12:36:43 CDT Vanessa Hickey MD [facility]-11136 Level 3 Est. Patient 12:57:49 CDT Vanessa Hickey MD [facility]-27283 Level 3 Est. Patient 00:28:25 CDT Alina Castaneda MD [facility]67140 Level 2 Est. Patient 12:52:14 CDT Alina Castaneda MD [facility]-78190 Level 3 Est. Patient 11:51:18 MANAGER ATHLETICS Alina Castaneda MD [facility]-53240 Level 3 Est. Patient 10:09:22 MANAGER ATHLETICS Alina Castaneda MD [facility]33551 Level 3 Est. Patient 14:36:26 MANAGER ATHLETICS Marvel Charles [facility]-56784 Level 3 Est. Patient 13:34:47 MANAGER ATHLETICS Alina Castaneda MD [facility]-17369 Level 3 Est. Patient 19:52:08 MANAGER ATHLETICS Alina Castaneda MD [facility]-83388 Level 3 Est. Patient 10:01:51 MANAGER ATHLETICS Marvel Charles [facility]-76442 Level 3 Est. Patient 21:54:06 CDT Vanessa Hickey MD [facility]-70251 Level 3 Est. Patient 08:54:46 CDT Alina Castaneda MD [facility]-91561 Level 3 Est. Patient 09:32:11 CDT Marvel Thurstonestela [facility] CPT-16812 Level 3 Est. Patient 12:02:49 CDT Alina Castaneda MD [facility]-07924 Level 3 Est. Patient 19:17:33 CDT Alina Castaneda MD PhD [facility]-40757 Level 3 Est. Patient 13:19:10 CDT Marvel Gurdeepajayestela [facility]-82514 Level 3 Est. Patient 08:20:05 CDT Alina Castaneda MD [facility]-03785 Level 3 Est. Patient 15:17:18 CDT Alina Castaneda MD [facility]-85265 Level 3 Est. Patient 14:25:36 MANAGER ATHLETICS [facility] Level 3 Est. Patient 10:09:15 MANAGER ATHLETICS [facility]28239 Level 3 Est. Patient 21:28:43 CDT Alina Castaneda MD [facility]-94830 Level 3 Est. Patient 15:20:11 CDT Marvel Araceli [facility] CPT-72781 Level 4 Est. Patient 19:08:12 CDT Alina Castaneda MD PhD [facility]-73960 Level 3 Est. Patient 15:06:39 CDT Marvel Charles [facility]-89501 Level 4 Est. Patient 17:48:15 CDT Alina Castaneda MD [facility]-67507 Level 3 Est. Patient 14:53:49 CDT Alina Castaneda MD [facility]-11418 Level 3 Est. Patient 09:35:16 CDT Alina Castaneda MD [facility]-94562 Level 3 Est. Patient 12:23:22 CDT Alina Castaneda MD [facility]58984 Level 3 Est. Patient 16:19:15 CDT Alina Castaneda MD [facility]-57539 Level 3 Est. Patient 21:39:56 MANAGER ATHLETICS Alina Castaneda MD [facility]-89727 Level 4 Est. Patient 14:12:56 MANAGER ATHLETICS Alina Castaneda MD [facility]20305 Level 2 Est. Patient 15:34:57 MANAGER ATHLETICS Alina Castaneda MD [facility]-41834 Level 3 Est. Patient 12:17:04 MANAGER ATHLETICS Alina Castaneda MD [facility]-58667 Level 3 Est. Patient 09:18:18 MANAGER ATHLETICS Marvel Charles [facility]-97451 Level 2 Est. Patient 21:50:24 CDT Alina Castaneda MD [facility]-48651 Level 3 Est. Patient 09:17:28 CDT Marvel Charles [facility]-64912 Level 4 Est. Patient 18:54:02 CDT Alina Castaneda MD [facility]-37871 Level 3 Est. Patient 10:47:10 CDT Alina Castaneda MD [facility]15897 Level 3 Est. Patient 09:22:20 CDT Marvel Charles [facility]-68527 Level 3 Est. Patient 16:39:43 [facility]455 Level 3 Est. Patient 16:05:16 CDT Alina Castaneda MD [facility] CPT-38309 Level 3 Est. Patient 00:29:15 CDT Alina Castaneda MD [facility] CPT-24245 Level 3 Est. Patient 10:49:22 MANAGER ATHLETICS Marvel Thurstonestela [facility] CPT-33496 Level 3 Est. Patient 21:30:19 MANAGER ATHLETICS Alina Castaneda MD [facility] CPT-30403 Level 4 Est. Patient 17:04:11 MANAGER ATHLETICS Brooksnivia Thurstonestela [facility] CPT-77890 Level 3 Est. Patient 15:34:11 MANAGER ATHLETICS [facility]-72047 Level 2 Est. Patient 12:51:58 MANAGER ATHLETICS Alina Castaneda MD [facility] CPT-40995 Level 3 Est. Patient 13:20:01 MANAGER ATHLETICS Alina Castaneda MD [facility] CPT-00862 Level 3 Est. Patient 09:23:35 CDT Alina Castaneda MD [facility] Procedures Code Procedure Name Date Entry Date Standard Description CPT-05830 Bladder Scan 12:36:44 CDT CPT-26316 Bladder Scan 21:54:06 CDT CPT-G0008 Administration of Influenza Virus Vaccine 13:05:26 CDT CPT-59222 Fluzone Quadrivalent Intramuscular Suspension 0.5 ML 13: 05:26 CDT CPT-40466 Administration single or combination vaccine inc oral 11 :49:51 CDT CPT-72955 Pneumovax 11:49:51 CDT CPT-94011 Ribs unilateral 2V 12:37:22 MANAGER ATHLETICS CPT-05265 Chest 2V Frontal and Lat 17:15:26 CDT CPT-11536 Abx/Therapy Injection 18:54:02 CDT CPT-J0696 Rocephin 1000 mg (Ceftriaxone) 16:00:32 CDT CPT-53483 Chest 2V Frontal and Lat 15:26:45 CDT CPT-23565 Chest 2V Frontal and Lat 10:23:27 CDT CPT-55604 Venipuncture Draw Fee 10:11:00 CDT CPT-17281 Administration single or combination vaccine inc oral 11 :56:38 CDT CPT-70968 Influenza split virus > age 3 11:56:38 CDT CPT-47161 Venipuncture Draw Fee 08:49:54 MANAGER ATHLETICS CPT-80072 EKG Trac and Interp 17:54:19 MANAGER ATHLETICS
--- OUTSIDE RECORDS SUMMARY | 2018-07-02 18:17 | XMS REPORT | Clinical Summary ---
Author Author Admin, TERELL Organization [facility] Address Unknown Phone Unavailable Allergies, Adverse 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 Kacey [employer] Benign paroxysmal positional vertigo Vertigo, benign paroxysmal position 386.11 Inactive Mima Kacey [employer]CTOR Benign paroxysmal positional vertigo High-risk sexual [...] 10u lunch and supper INSULIN LISPRO (HUMAN) 41398125512 Active Marvel Araceli MARROQUIN Active LATUDA 120 MG ORAL TABS 1 pill by mouth nightly LURASIDONE HCL 66862803476 Active Alina Castaneda MD PhD Active COLACE 100 MG CAPS 1 pill by mouth twice daily, for constipation DOCUSATE SODIUM 64837993697 Active Alina Castaneda MD PhD Active TRUETEST TEST STRP check blood sugars 3x/day GLUCOSE BLOOD 43842162224 Active Malnivia 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 RIB SAWYER Active ACCU-CHEK ROSA UZMA Use device to check blood sugars BLOOD GLUCOSE MONITORING SUPPL 16714776459 No Longer Active Marvel 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 RIB SAWYER Active ACCU-CHEK ROSA INVITR STRP use strips with device to check blood sugars 3 times daily GLUCOSE BLOOD 80274563346 No Longer Active Brooksnivia Araceli MENDOZAP Active VERAPAMIL HCL ER 180 MG ORAL CR-TABS 1 pill by mouth twice daily, for migraine prevention VERAPAMIL HCL 72144948401 Active Alina Castaneda MD PhD Active CYCLOBENZAPRINE HCL 10 MG TABS 1 tablet by mouth three times daily, scheduled CYCLOBENZAPRINE HCL 90894123842 No Longer Active Alina Castaneda MD PhD Active HUMALOG 100 UNIT/ML SOLN Take 20 units with breakfast, 10u with lunch and suppetr. INSULIN LISPRO (HUMAN) 19853368030 No Longer Active Alina Castaneda MD PhD Active TRUETEST TEST STRP check sugars 4x/day GLUCOSE BLOOD 40456312697 No Longer Active Alina Castaneda MD PhD Active MORPHINE SULFATE 30 MG TABS 1 pill by mouth twice daily, for pain MORPHINE SULFATE 30444523171 Active Mason Loredo MD Active ACYCLOVIR 400 MG ORAL TABS 1 pill three times daily x 5 days, for cold sore outbreak ACYCLOVIR 75526613270 No Longer Active Alina Castaneda MD PhD Active PENICILLIN V POTASSIUM 500 MG TABS 1 pill by mouth three times daily PENICILLIN V POTASSIUM 76128138449 No Longer Active Alina Castaneda MD PhD Active UROXATRAL 10 MG [id number]-TDN Take 1 tablet by mouth daily ALFUZOSIN HCL 38021075337 No Longer Active Alina Castaneda MD PhD Active THIOTHIXENE 5 MG CAPS by mouth twice a day THIOTHIXENE 29304921992 No Longer Active Alina Castaneda MD PhD Active ZYPREXA 7.5 MG TABS 1 at HS OLANZAPINE 60204547945 No Longer Active Alina Castaneda MD PhD Active LEVEMIR 100 UNIT/ML SOLN Take 70 u at 7-8pm INSULIN DETEMIR 68208410453 Active Mallashondaeh Ziglari RIB SAWYER Active BD INSULIN SYRINGE 28G X 1/2" 1 ML MISC 1 four times per day INSULIN SYRINGE-NEEDLE U-100 51404009851 Active Maljohn Mackenzieglari RIB SAWYER Active TOLTERODINE TARTRATE 2 MG TABS 1 pill twice daily, for bladder TOLTERODINE TARTRATE 02847932199 Active Alina Castaneda MD PhD Active DETROL LA 4 MG [id number]-ACV Take 1 tablet by mouth daily TOLTERODINE TARTRATE 86700989671 No Longer Active Alina Castaneda MD PhD Active HYDROCODONE-ACETAMINOPHEN 5-325 MG TABS 2 tabs by mouth three times daily as needed for pain HYDROCODONE-ACETAMINOPHEN 27590452389 Active Alina Castaneda MD PhD Active TERESE CONTOUR TEST STRP monitor blood sugars 3x/day GLUCOSE BLOOD 24042401012 No Longer Active Alina Castaneda MD PhD Active EQL TRUETEST TEST STRP Test blood sugar TID GLUCOSE BLOOD 05921521871 No Longer Active Alina Castaneda MD PhD Active FLUTICASONE PROPIONATE 50 MCG/ACT SUSP 2 sprays each nostril qDay x 30 days FLUTICASONE PROPIONATE 85902201745 No Longer Active Alina Castaneda MD PhD Active IBUPROFEN 200 MG TABS 1 Q 6 hr. PRN IBUPROFEN 04680726162 No Longer Active Alina Castaneda MD PhD Active NIACIN ER 500 MG CR-TABS 4 qHS (for triglycerides) NIACIN 41734599638 No Longer Active Alina Castaneda MD PhD Active ALFUZOSIN HCL ER 10 MG [id number] 1 tablet daily ALFUZOSIN HCL 81480093007 Active Vanessa Hickey MD Active CLONAZEPAM 1 MG TABS 1 pill by mouth three times daily CLONAZEPAM 27265550628 Active Alina Castaneda MD PhD Active LOVAZA 1 GM CAPS 4 daily (for triglycerides) [id number] ETHYL ESTERS 46679578030 Active Mao Rodriguez MD Active SAPHRIS 5 MG SUBL by mouth twice a day ASENAPINE MALEATE 07636428822 No Longer Active Marvel MARROQUIN Active ACETAMINOPHEN 500 MG TABS 2 Q 6 hr. PRN ACETAMINOPHEN 54193208545 No Longer Active Marvel MARROQUIN Active ORPHENADRINE CITRATE ER 100 MG [id number]-YRI 1 every 12 hr. as needed ORPHENADRINE CITRATE 73626595173 No Longer Active Alina Castaneda MD PhD Active NIACIN CR 500 MG CR-TABS 2 qHS NIACIN 25590398244 No Longer Active Alina Castaneda MD PhD Active AMOXICILLIN 500 MG CAPS 2 po BID x 10 days AMOXICILLIN 75369223280 No Longer Active Alina Castaneda MD PhD Active HYDROCODONE-ACETAMINOPHEN 7.5-325 MG TABS 1 four times a day as needed for pain HYDROCODONE-ACETAMINOPHEN 85889160405 No Longer Active Alina Castaneda MD PhD Active METFORMIN HCL ER 500 MG [id number] Take three tablets by mouth everyday METFORMIN HCL 68982445265 Active Marvel MENDOZAP Active DOXEPIN HCL 10 MG CAPS Take 1 tablet by mouth daily DOXEPIN HCL 32432586447 No Longer Active Salina Han [facility] Active NAVANE 10 MG CAPS 1/2 tablet twice a day THIOTHIXENE No Longer Active Salina Han A Active CYCLOBENZAPRINE HCL 10 MG TABS 1/2 tablet by mouth every 8 hours as needed for muscle spasms CYCLOBENZAPRINE HCL 03763491111 No Longer Active Alina Castaneda MD PhD Active BACTROBAN 2 % CREAM apply to ear and nose twice daily MUPIROCIN CALCIUM 16573738784 No Longer Active Alina Castaneda MD PhD Active HYDROCODONE-ACETAMINOPHEN 5-325 MG TABS take one tablet by mouth every four hours as needed for pain HYDROCODONE-ACETAMINOPHEN 85383810418 No Longer Active Alina Castaneda MD PhD Active ZOLPIDEM TARTRATE 10 MG TABS take at bedtime ZOLPIDEM TARTRATE 92194335418 Active Alina Castaneda MD PhD Active ZYPREXA 5 MG TABS take one tablet by mouth every evening OLANZAPINE 21086886082 No Longer Active Alina Castaneda MD PhD Active ALBUTEROL SULFATE 0.083 % NEBU SOLN one vial per nebulizer TID and PRN cough/ soa ALBUTEROL SULFATE 84896510668 No Longer Active Alina Castaneda MD PhD Active GUAIFENESIN 600 MG CP45I-NOA 1 tablet by mouth twice daily if needed for cough GUAIFENESIN 28291496830 No Longer Active Marvel MENDOZAP Active AZITHROMYCIN 500 MG SOLR 1 po q day AZITHROMYCIN 98737661031 No Longer Active Alina Castaneda MD PhD Active METOPROLOL SUCCINATE 100 MG KW28R-ELS 1 by mouth daily for blood pressure METOPROLOL SUCCINATE 22753708912 Active Alina Castaneda MD PhD Active PROMETHAZINE-CODEINE 6.25-10 MG/5ML SYRP 1 tsp po q 6 hours prn cough PROMETHAZINE-CODEINE 53449002022 No Longer Active Alina Castaneda MD PhD Active CEFDINIR 300 MG CAPS by mouth twice a day CEFDINIR 45385198615 No Longer Active Alina Castaneda MD PhD Active METFORMIN HCL 500 MG IT85G-OBC Take 3 tablets by mouth everyday METFORMIN HCL 92277432897 No Longer Active Alina Castaneda MD PhD Active LEVEMIR 100 UNIT/ML SOLN 90 units SQ qHS INSULIN DETEMIR 71529621735 No Longer Active Marvel MARROQUIN Active TOPROL XL 100 MG IN01C-CNK 1 @ HS METOPROLOL SUCCINATE 08196432940 No Longer Active Marvel MARROQUIN Active ALLOPURINOL 300 MG TABS Take one by mouth daily ALLOPURINOL 77391581081 Active Alina Castaneda MD PhD Active ZYPREXA 10 MG TABS Take one by mouth daily OLANZAPINE 99804920018 No Longer Active Alina Castaneda MD PhD Active NOVOLOG 100 UNIT/ML SOLN 40 units with every meal INSULIN ASPART 61439323330 No Longer Active Alina Castaneda MD PhD Active VERAPAMIL HCL CR 120 MG TAB CR 1 qPM VERAPAMIL HCL 61836126340 No Longer Active Salina Han A Active ZYPREXA 15 MG TABS Take 1 tablet by mouth daily OLANZAPINE 19247914214 No Longer Active Marvel MARROQUIN Active LISINOPRIL 20 MG TABS 1 BID LISINOPRIL 97387178432 Active Alina Castaneda MD PhD Active ALBUTEROL SULFATE (2.5 MG/3ML) 0.083% NEBU 1 neb tid and prn cough ALBUTEROL SULFATE 30641719714 No Longer Active Alina Castaneda MD PhD Active FLUVOXAMINE MALEATE 100 MG TABS Take one (1) tablet by mouth am, 1/2 at noon, 1 pm FLUVOXAMINE MALEATE 08968166368 Active Alina Castaneda MD PhD Active TRAVATAN Z 0.004 % SOLN 1 gtt each eye daily TRAVOPROST 01459068121 Active CRYSTAL Suarez Active LANTUS 100 UNIT/ML SOLN 60 units sq q hs INSULIN GLARGINE 94746197954 No Longer Active CRYSTAL Suarez Active ALBUTEROL SULFATE (2.5 MG/3ML) 0.083% NEBU 1 neb tid and prn cough ALBUTEROL SULFATE (2.5 MG/3ML) 0.083% NEBU 795877 ALBUTEROL SULFATE Inactive ZYPREXA 15 MG TABS Take 1 tablet by mouth daily ZYPREXA 15 MG TABS 136026 OLANZAPINE Inactive VERAPAMIL HCL CR 120 MG TAB CR 1 qPM VERAPAMIL HCL CR 120 MG TAB CR VERAPAMIL HCL Inactive ZYPREXA 10 MG TABS Take one by mouth daily ZYPREXA 10 MG TABS 597423 OLANZAPINE Inactive TOPROL XL 100 MG UR93Q-LWM 1 @ HS TOPROL XL 100 MG DT34S-LBU METOPROLOL SUCCINATE Inactive LEVEMIR 100 UNIT/ML SOLN 90 units SQ qHS LEVEMIR 100 UNIT/ML SOLN INSULIN DETEMIR Inactive PROMETHAZINE-CODEINE 6.25-10 MG/5ML SYRP 1 tsp po q 6 hours prn cough PROMETHAZINE-CODEINE 6.25-10 MG/5ML SYRP 444186 PROMETHAZINE- CODEINE Inactive GUAIFENESIN 600 MG LR11A-XPQ 1 tablet by mouth twice daily if needed for cough GUAIFENESIN 600 MG MU60T-UJT GUAIFENESIN Inactive ALBUTEROL SULFATE 0.083 % NEBU SOLN one vial per nebulizer TID and PRN cough/ soa ALBUTEROL SULFATE 0.083 % NEBU SOLN 422441 ALBUTEROL SULFATE Inactive ZYPREXA 5 MG TABS take one tablet by mouth every evening ZYPREXA 5 MG TABS 935435 OLANZAPINE Inactive HYDROCODONE-ACETAMINOPHEN 5-325 MG TABS take one tablet by mouth every four hours as needed for pain HYDROCODONE-ACETAMINOPHEN 5-325 MG TABS 413660 HYDROCODONE-ACETAMINOPHEN Inactive BACTROBAN 2 % CREAM apply to ear and nose twice daily BACTROBAN 2 % CREAM 226561 MUPIROCIN CALCIUM Inactive CYCLOBENZAPRINE HCL 10 MG TABS 1/2 tablet by mouth every 8 hours as needed for muscle spasms CYCLOBENZAPRINE HCL 10 MG TABS 807715 CYCLOBENZAPRINE HCL Inactive NAVANE 10 MG CAPS 1/2 tablet twice a day NAVANE 10 MG CAPS THIOTHIXENE Inactive DOXEPIN HCL 10 MG CAPS Take 1 tablet by mouth daily DOXEPIN HCL 10 MG CAPS 1860726 DOXEPIN HCL Inactive HYDROCODONE-ACETAMINOPHEN 7.5-325 MG TABS 1 four times a day as needed for pain HYDROCODONE-ACETAMINOPHEN 7.5-325 MG TABS 587588 HYDROCODONE-ACETAMINOPHEN Inactive NIACIN CR 500 MG CR-TABS 2 qHS NIACIN CR 500 MG CR- TABS NIACIN Inactive ORPHENADRINE CITRATE ER 100 MG [id number]-WJT 1 every 12 hr. as needed ORPHENADRINE CITRATE ER 100 MG SL92D-EKN ORPHENADRINE CITRATE Inactive ACETAMINOPHEN 500 MG TABS 2 Q 6 hr. PRN ACETAMINOPHEN 500 MG TABS 129960 ACETAMINOPHEN Inactive SAPHRIS 5 MG SUBL by mouth twice a day SAPHRIS 5 MG SUBL ASENAPINE MALEATE Inactive NIACIN ER 500 MG CR-TABS 4 qHS (for triglycerides) NIACIN ER 500 MG CR-TABS NIACIN Inactive IBUPROFEN 200 MG TABS 1 Q 6 hr. PRN IBUPROFEN 200 MG TABS 183816 IBUPROFEN Inactive FLUTICASONE PROPIONATE 50 MCG/ACT SUSP 2 sprays each nostril qDay x 30 days FLUTICASONE PROPIONATE 50 MCG/ACT SUSP 146090 FLUTICASONE PROPIONATE Inactive EQL TRUETEST TEST STRP Test blood sugar TID EQL TRUETEST TEST STRP GLUCOSE BLOOD Inactive TERESE CONTOUR TEST STRP monitor blood sugars 3x/day TERESE CONTOUR TEST STRP GLUCOSE BLOOD Inactive DETROL LA 4 MG IO96I-JJF Take 1 tablet by mouth daily DETROL LA 4 MG GD26T-QKF TOLTERODINE TARTRATE Inactive ZYPREXA 7.5 MG TABS 1 at HS ZYPREXA 7.5 MG TABS 793388 OLANZAPINE Inactive THIOTHIXENE 5 MG CAPS by mouth twice a day THIOTHIXENE 5 MG CAPS 231791 THIOTHIXENE Inactive UROXATRAL 10 MG [id number]-ZJA Take 1 tablet by mouth daily UROXATRAL 10 MG YT80W-WBD ALFUZOSIN HCL Inactive ACYCLOVIR 400 MG ORAL TABS 1 pill three times daily x 5 days, for cold sore outbreak ACYCLOVIR 400 MG ORAL TABS 219970 ACYCLOVIR Inactive TRUETEST TEST STRP check sugars 4x/day TRUETEST TEST STRP GLUCOSE BLOOD Inactive HUMALOG 100 UNIT/ML SOLN Take 20 units with breakfast, 10u with lunch and suppetr. HUMALOG 100 UNIT/ML SOLN INSULIN LISPRO ( HUMAN) Inactive CYCLOBENZAPRINE HCL 10 MG TABS 1 tablet by mouth three times daily, scheduled CYCLOBENZAPRINE HCL 10 MG TABS 532116 CYCLOBENZAPRINE HCL Inactive ACCU-CHEK ROSA INVITR STRP use strips with device to check blood sugars 3 times daily ACCU-CHEK ROSA INVITR STRP GLUCOSE BLOOD Inactive ACCU-CHEK ROSA UZMA Use device to check blood sugars ACCU-CHEK ROSA UZMA BLOOD GLUCOSE MONITORING SUPPL Inactive CEFDINIR 300 MG CAPS by mouth twice a day CEFDINIR 300 MG CAPS 613603 CEFDINIR Inactive AZITHROMYCIN 500 MG SOLR 1 po q day AZITHROMYCIN 500 MG SOLR 158083 AZITHROMYCIN Inactive AMOXICILLIN 500 MG CAPS 2 po BID x 10 days AMOXICILLIN 500 MG CAPS 735729 AMOXICILLIN Inactive PENICILLIN V POTASSIUM 500 MG TABS 1 pill by mouth three times daily PENICILLIN V POTASSIUM 500 MG TABS 338807 PENICILLIN V POTASSIUM Inactive Immunizations Vaccine Administration [...] Fluvirin, Fluarix, Agriflu(>=18 yo)) Fluzone (>3 yrs.) [[id number]] Influenza, seasonal, injectable pneumococcal immunization administered Pneumovax [...] pressure, diastolic - 8462-4 66 mm[Hg] BP gracia blood pressure, systolic - 8480-6 113 mm[Hg] [...] HGBA1C - Chemistry sodium, serum 130 mmol/L 411-611 0871/06/09 potassium, serum 4.0 mmol/L 3.5-5.2 chloride, serum 92 mmol/L 98-107 carbon dioxide, venous blood 22.1 mmol/L 21.0-32.0 blood glucose 60 mg/dL 65-110 calcium, serum 9.5 mg/dL 8.5-10.1 urea nitrogen, blood 14 mg/dL 7-18 creatinine, serum 1.30 mg/dL 0.60-1.30 hemoglobin A1C, blood, as % of total hemoglobin 6.0 % 4.3-6.0 sodium, serum 131 mmol/L 127-878 1161/12/30 potassium, serum 5.0 mmol/L 3.5-5.2 chloride, serum 95 mmol/L 98-107 carbon dioxide, venous blood 26.7 mmol/L 21.0-32.0 blood glucose 112 mg/dL 65-110 calcium, serum 9.2 mg/dL 8.5-10.1 urea nitrogen, blood 12 mg/dL 7-18 creatinine, serum 1.10 mg/dL 0.60-1.30 hemoglobin A1C, blood, as % of total hemoglobin 5.8 % 4.3-6.0 Lab Report: Basic Metabolic Panel, HGBA1C, MICROALBUMIN - Chemistry sodium, serum 137 mmol/L 206-209 4663/05/19 potassium, serum 5.2 mmol/L 3.5-5.2 chloride, serum [...] Panel - Chemistry sodium, serum 127 mmol/L 480-512 9630/10/27 potassium, serum 4.1 mmol/L 3.5-5.2 chloride, serum [...] mg/g mg/g{creat} 0-29 cholesterol, serum 131 mg/dL 660-558 6457/06/03 triglyceride, serum, fasting 383 mg/dL 30-200 HDL [...] mg/dL Encounters Code Encounter Date Provider Facility CPT-14746 Level 3 Est. Patient 09:34:56 CDT Alina Castaneda MD PhD [facility] CPT-14916 Level 3 Est. Patient 21:40:19 CDT Mima Erazo APRN [facility] CPT-60290 Level 3 Est. Patient 09:26:40 CDT Marvel [facility] CPT-06851 Level 3 Est. Patient 12:36:43 CDT Vanessa Hickey MD [facility] CPT-42006 Level 3 Est. Patient 12:57:49 CDT Vanessa Hickey MD [facility] CPT-07468 Level 3 Est. Patient 00:28:25 CDT Alina Castaneda MD PhD [facility] CPT-81196 Level 2 Est. Patient 12:52:14 CDT Alina Castaneda MD [facility] CPT-68747 Level 3 Est. Patient 11:51:18 SUPERVISOR MAPPING Alina Castaneda MD [facility] CPT-16472 Level 3 Est. Patient 10:09:22 SUPERVISOR MAPPING Alina Castaneda MD PhD [facility] CPT-10616 Level 3 Est. Patient 14:36:26 SUPERVISOR MAPPING Marvel [facility] CPT-06187 Level 3 Est. Patient 13:34:47 SUPERVISOR MAPPING Alina Castaneda MD [facility] [place]-27852 Level 3 Est. Patient 19:52:08 SUPERVISOR MAPPING Alina Castaneda MD [facility] [place]-64700 Level 3 Est. Patient 10:01:51 SUPERVISOR MAPPING Marvel Araceli [facility]-68543 Level 3 Est. Patient 21:54:06 CDT Vanessa Hickey MD [facility]-67705 Level 3 Est. Patient 08:54:46 CDT Alina Castaneda MD [facility] [place]-18578 Level 3 Est. Patient 09:32:11 CDT Marvel [facility]-80073 Level 3 Est. Patient 12:02:49 CDT Alina Castaneda MD [facility] [place]-16916 Level 3 Est. Patient 19:17:33 CDT Alina Castaneda MD [facility] [place]-73267 Level 3 Est. Patient 13:19:10 CDT Marvel [facility]-28382 Level 3 Est. Patient 08:20:05 CDT Alina Castaneda MD [facility] [place]-04531 Level 3 Est. Patient 15:17:18 CDT Alina Castaneda MD [facility] [place]-02784 Level 3 Est. Patient 14:25:36 SUPERVISOR MAPPING [facility]john [facility]-26767 Level 3 Est. Patient 10:09:15 SUPERVISOR MAPPING Marvel [facility]-27017 Level 3 Est. Patient 21:28:43 CDT Alina Castaneda MD [facility] [place]-11542 Level 3 Est. Patient 15:20:11 CDT Zainnivia [facility] CPT-63805 Level 4 Est. Patient 19:08:12 CDT Alina Castaneda MD [facility] [place]-46453 Level 3 Est. Patient 15:06:39 [facility] CPT-66553 Level 4 Est. Patient 17:48:15 CDT Alina Castaneda MD [facility] [place]-26524 Level 3 Est. Patient 14:53:49 CDT Alina Castaneda MD [facility] [place]-10858 Level 3 Est. Patient 09:35:16 CDT Alina Castaneda MD [facility] [place]-34676 Level 3 Est. Patient 12:23:22 CDT Alina Castaneda MD [facility] [place]-87000 Level 3 Est. Patient 16:19:15 CDT Alina Castaneda MD [facility] [place]-62931 Level 3 Est. Patient 21:39:56 SUPERVISOR MAPPING Alina Castaneda MD [facility] [place]-67242 Level 4 Est. Patient 14:12:56 SUPERVISOR MAPPING Alina Castaneda MD [facility] [place]-18238 Level 2 Est. Patient 15:34:57 SUPERVISOR MAPPING Alina Castaneda MD [facility] CPT-39647 Level 3 Est. Patient 12:17:04 SUPERVISOR MAPPING Alina Castaneda MD [facility] [place]-53870 Level 3 Est. Patient 09:18:18 SUPERVISOR MAPPING Marvel [facility] CPT-94851 Level 2 Est. Patient 21:50:24 CDT Alina Castaneda MD PhD [facility] CPT-90829 Level 3 Est. Patient 09:17:28 CDT Marvel Araceli [facility] CPT-31384 Level 4 Est. Patient 18:54:02 CDT Alina Castaneda MD [facility] CPT-69446 Level 3 Est. Patient 10:47:10 CDT Alina Castaneda MD [facility] CPT-99468 Level 3 Est. Patient 09:22:20 CDT Marvel Araceli [facility] CPT-32887 Level 3 Est. Patient 16:39:43 CDT Marvel Araceli [facility] CPT-60073 Level 3 Est. Patient 16:05:16 CDT Alina Castandea MD [facility] CPT-37233 Level 3 Est. Patient 00:29:15 CDT Alina Castaneda MD [facility] CPT-39748 Level 3 Est. Patient 10:49:22 SUPERVISOR MAPPING Brooksjohn [facility] CPT-59346 Level 3 Est. Patient 21:30:19 SUPERVISOR MAPPING Alina Castaneda MD [facility] CPT-63148 Level 4 Est. Patient 17:04:11 SUPERVISOR MAPPING Brookslashondanivia Araceli [facility] CPT-47629 Level 3 Est. Patient 15:34:11 SUPERVISOR MAPPING Brookslashondanivia Araceli [facility] CPT-79619 Level 2 Est. Patient 12:51:58 SUPERVISOR MAPPING Alina Castaneda MD [facility] CPT-95179 Level 3 Est. Patient 13:20:01 SUPERVISOR MAPPING Alina Castaneda MD [facility] CPT-26193 Level 3 Est. Patient 09:23:35 CDT Alina Castaneda MD [facility] Procedures Code Procedure Name Date Entry Date Standard Description CPT-75047 Bladder Scan 12:36:44 CDT CPT-44390 Bladder Scan 21:54:06 CDT CPT-G0008 Administration of Influenza Virus Vaccine 13:05:26 CDT CPT-76216 Fluzone Quadrivalent Intramuscular Suspension 0.5 ML 13: 05:26 CDT CPT-26974 Administration single or combination vaccine inc oral 11 :49:51 CDT CPT-67841 Pneumovax 11:49:51 CDT CPT-32408 Ribs unilateral 2V 12:37:22 SUPERVISOR MAPPING CPT-76559 Chest 2V Frontal and Lat 17:15:26 CDT CPT-78668 Abx/Therapy Injection 18:54:02 CDT CPT-J0696 Rocephin 1000 mg (Ceftriaxone) 16:00:32 CDT CPT-12978 Chest 2V Frontal and Lat 15:26:45 CDT CPT-19467 Chest 2V Frontal and Lat 10:23:27 CDT CPT-46961 Venipuncture Draw Fee 10:11:00 CDT CPT-55308 Administration single or combination vaccine inc oral 11 :56:38 CDT CPT-98537 Influenza split virus > age 3 11:56:38 CDT CPT-14017 Venipuncture Draw Fee 08:49:54 SUPERVISOR MAPPING CPT-35284 EKG Trac and Interp 17:54:19 SUPERVISOR MAPPING
--- OUTSIDE RECORDS SUMMARY | 2018-07-02 18:18 | XMS REPORT | Clinical Summary ---
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 Active Alina Castaneda MD PhD Recurrent isolated sleep paralysis SPECIAL SCREENING FOR MALIGNANT NEOPLASM OF PROSTATE V76.44 Resolved Alina Castaneda MD PhD Screening for malignant neoplasms of prostate Hypoglycemia 251.2 Resolved Alina Castaneda MD PhD Hypoglycemia, unspecified Diabetes mellitus, type II 250.00 Active Mallashondaeh Bertrandari OPERATIONS EXPERT Diabetes mellitus without mention of complication, type [...] MD PhD BRONCHITIS, ACUTE ICD-466.0 Inactive Alina Castanead MD PhD PNEUMONIA, ORGANISM UNSPECIFIED ICD-486 Roro [...] STRP check blood sugars 3x/day GLUCOSE BLOOD 32786547775 Active Malihnivia Ziglari OPERATIONS EXPERT Active ACCU-CHEK ROSA UZMA Use device to check blood sugars BLOOD GLUCOSE MONITORING SUPPL 73428828510 No Longer Active Mallashondaeh Ziglari OPERATIONS EXPERT Active ACCU-CHEK ROSA INVITR STRP use strips with device to check blood sugars 3 times daily GLUCOSE BLOOD 35764542728 No Longer Active Mallashondaeh 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 OPERATIONS EXPERT Active VERAPAMIL HCL ER 180 MG ORAL CR-TABS 1 pill by mouth twice daily, for migraine prevention VERAPAMIL HCL 61166198711 Active Alina Castaneda MD PhD Active CYCLOBENZAPRINE HCL 10 MG TABS 1 tablet by mouth three times daily, scheduled CYCLOBENZAPRINE HCL 69915865546 No Longer Active Alina Castaneda MD PhD Active HUMALOG 100 UNIT/ML SOLN Take 20 units with breakfast, 10u with lunch and suppetr. INSULIN LISPRO (HUMAN) 12791815430 No Longer Active Alina Castaneda MD PhD Active TRUETEST TEST STRP check sugars 4x/day GLUCOSE BLOOD 25737207646 No Longer Active Alina Castaneda MD PhD Active MORPHINE SULFATE 30 MG TABS 1 pill by mouth twice daily, for pain MORPHINE SULFATE 90322868591 Active Alina Castaneda MD PhD Active ACYCLOVIR 400 MG ORAL TABS 1 pill three times daily x 5 days, for cold sore outbreak ACYCLOVIR 21245467549 No Longer Active Alina Castaneda MD PhD Active PENICILLIN V POTASSIUM 500 MG TABS 1 pill by mouth three times daily PENICILLIN V POTASSIUM 89238797920 No Longer Active Alina Castaneda MD PhD Active LATUDA 80 MG TABS 1 tab by mouth every evening LURASIDONE HCL 85205535438 Active Alina Castaneda MD PhD Active UROXATRAL 10 MG [id number] Take 1 tablet by mouth daily ALFUZOSIN HCL 85222077299 No Longer Active Alina Castaneda MD PhD Active THIOTHIXENE 5 MG CAPS by mouth twice a day THIOTHIXENE 00073951833 No Longer Active Alina Castaneda MD PhD Active ZYPREXA 7.5 MG TABS 1 at HS OLANZAPINE 05109374045 No Longer Active Alina Castaneda MD PhD Active LEVEMIR 100 UNIT/ML SOLN Take 70 u at 7-8pm INSULIN DETEMIR 24852412972 Active Maliheh Ziglari OPERATIONS EXPERT Active BD INSULIN SYRINGE 28G X 1/2" 1 ML MISC 1 four times per day INSULIN SYRINGE-NEEDLE U-100 52873962808 Active Mallashondaeh Ziglari OPERATIONS EXPERT Active TOLTERODINE TARTRATE 2 MG TABS 1 pill twice daily, for bladder TOLTERODINE TARTRATE 81965076902 Active Alina Castaneda MD PhD Active DETROL LA 4 MG [id number] Take 1 tablet by mouth daily TOLTERODINE TARTRATE 31128399918 No Longer Active Alina Castaneda MD PhD Active HYDROCODONE-ACETAMINOPHEN 5-325 MG TABS 2 tabs by mouth three times daily as needed for pain HYDROCODONE-ACETAMINOPHEN 82517492370 Active lAina Castaneda MD PhD Active TERESE CONTOUR TEST STRP monitor blood sugars 3x/day GLUCOSE BLOOD 85618878271 No Longer Active Alina Castaneda MD PhD Active EQL TRUETEST TEST STRP Test blood sugar TID GLUCOSE BLOOD 65330714566 No Longer Active Alina Castaneda MD PhD Active FLUTICASONE PROPIONATE 50 MCG/ACT SUSP 2 sprays each nostril qDay x 30 days FLUTICASONE PROPIONATE 29079592227 No Longer Active Alina Castaneda MD PhD Active IBUPROFEN 200 MG TABS 1 Q 6 hr. PRN IBUPROFEN 77876119014 No Longer Active Alina Castaneda MD PhD Active NIACIN ER 500 MG CR-TABS 4 qHS (for triglycerides) NIACIN 20906040122 No Longer Active Alina Castaneda MD PhD Active ALFUZOSIN HCL ER 10 MG [id number] 1 tablet daily ALFUZOSIN HCL 99948299913 Active Vanessa Hickey MD Active CLONAZEPAM 1 MG TABS 1 pill by mouth three times daily CLONAZEPAM 56932717095 Active Alina Castaneda MD PhD Active LOVAZA 1 GM CAPS 4 daily (for triglycerides) [id number] ETHYL ESTERS 45792567615 Active Alina Castaneda MD PhD Active SAPHRIS 5 MG SUBL by mouth twice a day ASENAPINE MALEATE 70302359600 No Longer Active Maliheh Ziglari OPERATIONS EXPERT Active ACETAMINOPHEN 500 MG TABS 2 Q 6 hr. PRN ACETAMINOPHEN 34739477864 No Longer Active Maliheh Ziglari OPERATIONS EXPERT Active ORPHENADRINE CITRATE ER 100 MG [id number] 1 every 12 hr. as needed ORPHENADRINE CITRATE 40431498023 No Longer Active Alina Castaneda MD PhD Active NIACIN CR 500 MG CR-TABS 2 qHS NIACIN 18125576067 No Longer Active Alina Castaneda MD PhD Active AMOXICILLIN 500 MG CAPS 2 po BID x 10 days AMOXICILLIN 33023205774 No Longer Active Alina Castaneda MD PhD Active HYDROCODONE-ACETAMINOPHEN 7.5-325 MG TABS 1 four times a day as needed for pain HYDROCODONE-ACETAMINOPHEN 38536094955 No Longer Active Alina Castaneda MD PhD Active METFORMIN HCL ER 500 MG PD11O-OCZ Take three tablets by mouth everyday METFORMIN HCL 72610349457 Active Alina Castaneda MD PhD Active DOXEPIN HCL 10 MG CAPS Take 1 tablet by mouth daily DOXEPIN HCL 96361250172 No Longer Active Salina Han A Active NAVANE 10 MG CAPS 1/2 tablet twice a day THIOTHIXENE No Longer Active Salina Han A Active CYCLOBENZAPRINE HCL 10 MG TABS 1/2 tablet by mouth every 8 hours as needed for muscle spasms CYCLOBENZAPRINE HCL 10566119761 No Longer Active Alina Castaneda MD PhD Active BACTROBAN 2 % CREAM apply to ear and nose twice daily MUPIROCIN CALCIUM 21674217884 No Longer Active Alina Castaneda MD PhD Active HYDROCODONE-ACETAMINOPHEN 5-325 MG TABS take one tablet by mouth every four hours as needed for pain HYDROCODONE-ACETAMINOPHEN 14736161802 No Longer Active Alina Castanead MD PhD Active ZOLPIDEM TARTRATE 10 MG TABS take at bedtime ZOLPIDEM TARTRATE 60315395557 Active Alina Castaneda MD PhD Active ZYPREXA 5 MG TABS take one tablet by mouth every evening OLANZAPINE 57876806212 No Longer Active Alina Castaneda MD PhD Active ALBUTEROL SULFATE 0.083 % NEBU SOLN one vial per nebulizer TID and PRN cough/ soa ALBUTEROL SULFATE 71301394134 No Longer Active Alina Castaneda MD PhD Active GUAIFENESIN 600 MG CO06W-MPS 1 tablet by mouth twice daily if needed for cough GUAIFENESIN 22258498190 No Longer Active Marvel MARROQUIN Active AZITHROMYCIN 500 MG SOLR 1 po q day AZITHROMYCIN 94653685517 No Longer Active Alina Castaneda MD PhD Active METOPROLOL SUCCINATE 100 MG ZS65J-KSF 1 by mouth daily for blood pressure METOPROLOL SUCCINATE 67378681809 Active Alina Castaneda MD PhD Active PROMETHAZINE-CODEINE 6.25-10 MG/5ML SYRP 1 tsp po q 6 hours prn cough PROMETHAZINE-CODEINE 34474558726 No Longer Active Alina Castaneda MD PhD Active CEFDINIR 300 MG CAPS by mouth twice a day CEFDINIR 30066244501 No Longer Active Alina Castaneda MD PhD Active METFORMIN HCL 500 MG WZ48P-QFC Take 3 tablets by mouth everyday METFORMIN HCL 09063158568 No Longer Active Alina Castaneda MD PhD Active LEVEMIR 100 UNIT/ML SOLN 90 units SQ qHS INSULIN DETEMIR 77600771804 No Longer Active Marvel MARROQUIN Active TOPROL XL 100 MG [id number]-BAX 1 @ HS METOPROLOL SUCCINATE 22327534558 No Longer Active Marvel MARROQUIN Active ALLOPURINOL 300 MG TABS Take one by mouth daily ALLOPURINOL 29999025124 Active Alina Castaneda MD PhD Active ZYPREXA 10 MG TABS Take one by mouth daily OLANZAPINE 68815827748 No Longer Active Alina Castaneda MD PhD Active NOVOLOG 100 UNIT/ML SOLN 40 units with every meal INSULIN ASPART 44805694999 No Longer Active Alina Castaneda MD PhD Active VERAPAMIL HCL CR 120 MG TAB CR 1 qPM VERAPAMIL HCL 10642645423 No Longer Active Salina Han [facility] Active ZYPREXA 15 MG TABS Take 1 tablet by mouth daily OLANZAPINE 64278662443 No Longer Active Marvel MARROQUIN Active LISINOPRIL 20 MG TABS 1 BID LISINOPRIL 52262207021 Active Alina Castaneda MD PhD Active ALBUTEROL SULFATE (2.5 MG/3ML) 0.083% NEBU 1 neb tid and prn cough ALBUTEROL SULFATE 18400168477 No Longer Active Alina Castaneda MD PhD Active FLUVOXAMINE MALEATE 100 MG TABS Take one (1) tablet by mouth am, 1/2 at noon, 1 pm FLUVOXAMINE MALEATE 64287582129 Active Alina Castaneda MD PhD Active TRAVATAN Z 0.004 % SOLN 1 gtt each eye daily TRAVOPROST 59865928998 Active ITZEL SuarezAriela Active LANTUS 100 UNIT/ML SOLN 60 units sq q hs INSULIN GLARGINE 32457472374 No Longer Active CRYSTAL Suarez Active ALBUTEROL SULFATE (2.5 MG/3ML) 0.083% NEBU 1 neb tid and prn cough ALBUTEROL SULFATE (2.5 MG/3ML) 0.083% NEBU 815765 ALBUTEROL SULFATE Inactive ZYPREXA 15 MG TABS Take 1 tablet by mouth daily ZYPREXA 15 MG TABS 420880 OLANZAPINE Inactive VERAPAMIL HCL CR 120 MG TAB CR 1 qPM VERAPAMIL HCL CR 120 MG TAB CR VERAPAMIL HCL Inactive ZYPREXA 10 MG TABS Take one by mouth daily ZYPREXA 10 MG TABS 839949 OLANZAPINE Inactive TOPROL XL 100 MG [id number] 1 @ HS TOPROL XL 100 MG QS07K-HVT METOPROLOL SUCCINATE Inactive LEVEMIR 100 UNIT/ML SOLN 90 units SQ qHS LEVEMIR 100 UNIT/ML SOLN INSULIN DETEMIR Inactive PROMETHAZINE-CODEINE 6.25-10 MG/5ML SYRP 1 tsp po q 6 hours prn cough PROMETHAZINE-CODEINE 6.25-10 MG/5ML SYRP 539599 PROMETHAZINE- CODEINE Inactive GUAIFENESIN 600 MG HH15V-FQB 1 tablet by mouth twice daily if needed for cough GUAIFENESIN 600 MG [id number]-JNI GUAIFENESIN Inactive ALBUTEROL SULFATE 0.083 % NEBU SOLN one vial per nebulizer TID and PRN cough/ soa ALBUTEROL SULFATE 0.083 % NEBU SOLN 956011 ALBUTEROL SULFATE Inactive ZYPREXA 5 MG TABS take one tablet by mouth every evening ZYPREXA 5 MG TABS 963427 OLANZAPINE Inactive HYDROCODONE-ACETAMINOPHEN 5-325 MG TABS take one tablet by mouth every four hours as needed for pain HYDROCODONE-ACETAMINOPHEN 5-325 MG TABS 570013 HYDROCODONE-ACETAMINOPHEN Inactive BACTROBAN 2 % CREAM apply to ear and nose twice daily BACTROBAN 2 % CREAM 734050 MUPIROCIN CALCIUM Inactive CYCLOBENZAPRINE HCL 10 MG TABS 1/2 tablet by mouth every 8 hours as needed for muscle spasms CYCLOBENZAPRINE HCL 10 MG TABS 267182 CYCLOBENZAPRINE HCL Inactive NAVANE 10 MG CAPS 1/2 tablet twice a day NAVANE 10 MG CAPS THIOTHIXENE Inactive DOXEPIN HCL 10 MG CAPS Take 1 tablet by mouth daily DOXEPIN HCL 10 MG CAPS 2477423 DOXEPIN HCL Inactive HYDROCODONE-ACETAMINOPHEN 7.5-325 MG TABS 1 four times a day as needed for pain HYDROCODONE-ACETAMINOPHEN 7.5-325 MG TABS 628150 HYDROCODONE-ACETAMINOPHEN Inactive NIACIN CR 500 MG CR-TABS 2 qHS NIACIN CR 500 MG CR- TABS NIACIN Inactive ORPHENADRINE CITRATE ER 100 MG [id number] 1 every 12 hr. as needed ORPHENADRINE CITRATE ER 100 MG [id number]-PQZ ORPHENADRINE CITRATE Inactive ACETAMINOPHEN 500 MG TABS 2 Q 6 hr. PRN ACETAMINOPHEN 500 MG TABS 614701 ACETAMINOPHEN Inactive SAPHRIS 5 MG SUBL by mouth twice a day SAPHRIS 5 MG SUBL ASENAPINE MALEATE Inactive NIACIN ER 500 MG CR-TABS 4 qHS (for triglycerides) NIACIN ER 500 MG CR-TABS NIACIN Inactive IBUPROFEN 200 MG TABS 1 Q 6 hr. PRN IBUPROFEN 200 MG TABS 482824 IBUPROFEN Inactive FLUTICASONE PROPIONATE 50 MCG/ACT SUSP 2 sprays each nostril qDay x 30 days FLUTICASONE PROPIONATE 50 MCG/ACT SUSP 138040 FLUTICASONE PROPIONATE Inactive EQL TRUETEST TEST STRP Test blood sugar TID EQL TRUETEST TEST STRP GLUCOSE BLOOD Inactive TERESE CONTOUR TEST STRP monitor blood sugars 3x/day TERESE CONTOUR TEST STRP GLUCOSE BLOOD Inactive DETROL LA 4 MG [id number]-JGM Take 1 tablet by mouth daily DETROL LA 4 MG [id number]-[id number] TOLTERODINE TARTRATE Inactive ZYPREXA 7.5 MG TABS 1 at HS ZYPREXA 7.5 MG TABS 906088 OLANZAPINE Inactive THIOTHIXENE 5 MG CAPS by mouth twice a day THIOTHIXENE 5 MG CAPS 467272 THIOTHIXENE Inactive UROXATRAL 10 MG DW24C-HWQ Take 1 tablet by mouth daily UROXATRAL 10 MG DP02B-WQX ALFUZOSIN HCL Inactive ACYCLOVIR 400 MG ORAL TABS 1 pill three times daily x 5 days, for cold sore outbreak ACYCLOVIR 400 MG ORAL TABS 456009 ACYCLOVIR Inactive TRUETEST TEST STRP check sugars 4x/day TRUETEST TEST STRP GLUCOSE BLOOD Inactive HUMALOG 100 UNIT/ML SOLN Take 20 units with breakfast, 10u with lunch and suppetr. HUMALOG 100 UNIT/ML SOLN INSULIN LISPRO ( HUMAN) Inactive CYCLOBENZAPRINE HCL 10 MG TABS 1 tablet by mouth three times daily, scheduled CYCLOBENZAPRINE HCL 10 MG TABS 197874 CYCLOBENZAPRINE HCL Inactive ACCU-CHEK ROSA INVITR STRP use strips with device to check blood sugars 3 times daily ACCU-CHEK ROSA INVITR STRP GLUCOSE BLOOD Inactive ACCU-CHEK ROSA UZMA Use device to check blood sugars ACCU-CHEK ROSA UZMA BLOOD GLUCOSE MONITORING SUPPL Inactive CEFDINIR 300 MG CAPS by mouth twice a day CEFDINIR 300 MG CAPS 399113 CEFDINIR Inactive AZITHROMYCIN 500 MG SOLR 1 po q day AZITHROMYCIN 500 MG SOLR 932631 AZITHROMYCIN Inactive AMOXICILLIN 500 MG CAPS 2 po BID x 10 days AMOXICILLIN 500 MG CAPS 029459 AMOXICILLIN Inactive PENICILLIN V POTASSIUM 500 MG TABS 1 pill by mouth three times daily PENICILLIN V POTASSIUM 500 MG TABS 953648 PENICILLIN V POTASSIUM Inactive Immunizations Vaccine Administration [...] Fluvirin, Fluarix, Agriflu(>=18 yo)) Fluzone (>3 yrs.) [EFB460] Influenza, seasonal, injectable pneumococcal immunization administered Pneumovax [...] HGBA1C - Chemistry sodium, serum 130 mmol/L 590-327 4411/06/09 potassium, serum 4.0 mmol/L 3.5-5.2 chloride, serum 92 mmol/L 98-107 carbon dioxide, venous blood 22.1 mmol/L 21.0-32.0 blood glucose 60 mg/dL 65-110 calcium, serum 9.5 mg/dL 8.5-10.1 urea nitrogen, blood 14 mg/dL 7-18 creatinine, serum 1.30 mg/dL 0.60-1.30 hemoglobin A1C, blood, as % of total hemoglobin 6.0 % 4.3-6.0 sodium, serum 131 mmol/L 263-904 1899/12/30 potassium, serum 5.0 mmol/L 3.5-5.2 chloride, serum [...] 6.0 mg/dL 2.6-7.2 sodium, serum 130 mmol/L 346-970 9867/05/01 potassium, serum 5.2 mmol/L 3.5-5.2 chloride, serum [...] 0.40 mg/dL 0.00-1.00 cholesterol, serum 151 mg/dL 358-591 9678/05/01 triglyceride, serum, fasting 356 mg/dL 30-200 HDL [...] Panel - Chemistry sodium, serum 127 mmol/L 920-952 5461/10/27 potassium, serum 4.1 mmol/L 3.5-5.2 chloride, serum [...] mg/dL Encounters Code Encounter Date Provider Facility CPT-83862 Level 2 Est. Patient 12:52:14 CDT Alina Castaneda MD PhD [facility]-88268 Level 3 Est. Patient 11:51:18 ORACLE BUSINESS ANALYST Alina Castaneda MD [facility]-76069 Level 3 Est. Patient 10:09:22 ORACLE BUSINESS ANALYST Alina Castaneda MD [facility]-56785 Level 3 Est. Patient 14:36:26 ORACLE BUSINESS ANALYST [facility] CPT-76989 Level 3 Est. Patient 13:34:47 ORACLE BUSINESS ANALYST Alina Castaneda MD [facility]-50848 Level 3 Est. Patient 19:52:08 ORACLE BUSINESS ANALYST Alina Castaneda MD [facility]-46639 Level 3 Est. Patient 10:01:51 ORACLE BUSINESS ANALYST [facility] CPT-56551 Level 3 Est. Patient 21:54:06 CDT Vanessa Hickey MD [facility]-27349 Level 3 Est. Patient 08:54:46 CDT Alina Castaneda MD [facility]-73444 Level 3 Est. [facility] 09:32:11 [facility]-75766 Level 3 Est. Patient 12:02:49 CDT Alina Castaneda MD [facility]-15336 Level 3 Est. Patient 19:17:33 CDT Alina Castaneda MD [facility]20032 Level 3 Est. Patient 13:19:10 CDT Marvel Araceli [facility]-39248 Level 3 Est. Patient 08:20:05 CDT Alina Castaneda MD [facility]56649 Level 3 Est. Patient 15:17:18 CDT Alina Castaneda MD [facility]21101 Level 3 Est. Patient 14:25:36 ORACLE BUSINESS ANALYST [facility] Level 3 Est. Patient 10:09:15 ORACLE BUSINESS ANALYST [facility] Level 3 Est. Patient 21:28:43 CDT Alina Castaneda MD [facility]-22755 Level 3 Est. Patient 15:20:11 [facility]-49340 Level 4 Est. Patient 19:08:12 CDT Alina Castaneda MD [facility]-23392 Level 3 Est. Patient 15:06:39 CDT Marvel Charles [facility]-87645 Level 4 Est. Patient 17:48:15 CDT Alina Castaneda MD [facility]-88876 Level 3 Est. Patient 14:53:49 CDT Alina Castaneda MD [facility]-19560 Level 3 Est. Patient 09:35:16 CDT Alina Castaneda MD [facility]49914 Level 3 Est. Patient 12:23:22 CDT Alina Castaneda MD [facility]-59592 Level 3 Est. Patient 16:19:15 CDT Alina Castaneda MD [facility]-08144 Level 3 Est. Patient 21:39:56 ORACLE BUSINESS ANALYST Alina Castaneda MD [facility]44996 Level 4 Est. Patient 14:12:56 ORACLE BUSINESS ANALYST Alina Castaneda MD [facility]63254 Level 2 Est. Patient 15:34:57 ORACLE BUSINESS ANALYST Alina Castaneda MD [facility]80297 Level 3 Est. Patient 12:17:04 ORACLE BUSINESS ANALYST Alina Castaneda MD [facility]81303 Level 3 Est. Patient 09:18:18 ORACLE BUSINESS ANALYST Marvel [facility]-68013 Level 2 Est. Patient 21:50:24 CDT Alina Castaneda MD [facility]-69168 Level 3 Est. Patient 09:17:28 CDT Marvel [facility]-19010 Level 4 Est. Patient 18:54:02 CDT Alina Castaneda MD [facility]-25428 Level 3 Est. Patient 10:47:10 CDT Alina Castaneda MD [facility]22107 Level 3 Est. Patient 09:22:20 CDT Marvel [facility]-45303 Level 3 Est. Patient 16:39:43 CDT Marvel [facility]-38733 Level 3 Est. Patient 16:05:16 CDT Alina Castaneda MD [facility]43749 Level 3 Est. Patient 00:29:15 CDT Alina Castaneda MD PhD [facility] CPT-97317 Level 3 Est. Patient 10:49:22 ORACLE BUSINESS ANALYST Marvel Thurstonestela [facility] CPT-80172 Level 3 Est. Patient 21:30:19 ORACLE BUSINESS ANALYST Alina Castaneda MD [facility] CPT-25985 Level 4 Est. Patient 17:04:11 ORACLE BUSINESS ANALYST Marvel Charles [facility] CPT-89218 Level 3 Est. Patient 15:34:11 ORACLE BUSINESS ANALYST [facility]180 Level 2 Est. Patient 12:51:58 ORACLE BUSINESS ANALYST Alina Castaneda MD [facility] CPT-18724 Level 3 Est. Patient 13:20:01 ORACLE BUSINESS ANALYST Alina Castaneda MD [facility] CPT-10602 Level 3 Est. Patient 09:23:35 CDT Alina Castaneda MD [facility] Procedures Code Procedure Name Date Entry Date Standard Description CPT-68309 Bladder Scan 21:54:06 CDT CPT-G0008 Administration of Influenza Virus Vaccine 13:05:26 CDT CPT-89826 Fluzone Quadrivalent Intramuscular Suspension 0.5 ML 13: 05:26 CDT CPT-89475 Administration single or combination vaccine inc oral 11 :49:51 CDT CPT-95130 Pneumovax 11:49:51 CDT CPT-21802 Ribs unilateral 2V 12:37:22 ORACLE BUSINESS ANALYST CPT-51094 Chest 2V Frontal and Lat 17:15:26 CDT CPT-40228 Abx/Therapy Injection 18:54:02 CDT CPT-J0696 Rocephin 1000 mg (Ceftriaxone) 16:00:32 CDT CPT-08031 Chest 2V Frontal and Lat 15:26:45 CDT CPT-63575 Chest 2V Frontal and Lat 10:23:27 CDT CPT-54260 Venipuncture Draw Fee 10:11:00 CDT CPT-60936 Administration single or combination vaccine inc oral 11 :56:38 CDT CPT-89749 Influenza split virus > age 3 11:56:38 CDT CPT-58347 Venipuncture Draw Fee 08:49:54 ORACLE BUSINESS ANALYST CPT-24176 EKG Trac and Interp 17:54:19 ORACLE BUSINESS ANALYST
--- OUTSIDE RECORDS SUMMARY | 2018-07-02 18:20 | XMS REPORT | Clinical Summary ---
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 Erazo DECKER OPERATOR Benign paroxysmal positional vertigo Vertigo, benign paroxysmal position 386.11 Inactive Mima Erazo DECKER OPERATOR Benign paroxysmal positional vertigo High-risk sexual behavior V69.2 Active Alina Castaneda MD PhD High-risk sexual behavior Erectile dysfunction 302.72 Active Alina Castaneda MD PhD Psychosexual dysfunction with inhibited sexual excitement Constipation 564.00 Active Alina Casatneda MD PhD Constipation, unspecified Skin lesion 709.9 Active Alina Castaneda MD PhD Unspecified disorder of skin and subcutaneous tissue Malaise and fatigue 780.79 Active Cherelle Speaks DECKER OPERATOR Other malaise and fatigue Diarrhea 787.91 Active Cherelle Speaks DECKER OPERATOR Diarrhea PHARYNGITIS 462 Active Cherelle Speaks DECKER OPERATOR Acute pharyngitis Colitis 558.9 Active Mima Erazo DECKER OPERATOR Other and unspecified noninfectious gastroenteritis and colitis WOUND, OPEN, NOSE ICD-873.20 Inactive Alina Castaneda MD PhD DIABETES, TYPE 2 ICD-250.00 Inactive Alina Castaneda MD PhD HYPERTENSION ICD-401.9 Inactive Alina Castaneda MD PhD URI ICD-465.9 Inactive Alina Castaneda MD PhD CHEST PAIN ICD-786.50 Inactive Alina Castaneda MD PhD FH STROKE ICD-V17.1 Inactive Marvel Charles JOINT CLEANING MACHINE OPERATOR FATIGUE ICD-780.79 Inactive Alina Castaneda [...] mouth twice daily, for constipation DOCUSATE SODIUM 80251960805 No Longer Active Mima Erazo APRN Active FLONASE ALLERGY RELIEF 50 MCG/ACT NASAL SUSP One spray each nostril BID x 1 week then daily FLUTICASONE PROPIONATE 35526720130 Active Mimacecily Erazo APRN Active BD PEN NEEDLE MINI U/F 31G X 5 MM MISC 4 a day INSULIN PEN NEEDLE 19686810152 Active Mallashondaeh Ziglari JOINT CLEANING MACHINE OPERATOR Active AMITIZA 24 MCG ORAL CAPS Take one capsule BID for constipation LUBIPROSTONE 54816608667 Active Mimacecily Erazo APRN Active LEVEMIR FLEXTOUCH 100 UNIT/ML SC SOPN 75 units SQ each evening, for diabetes INSULIN DETEMIR 71718628856 Active Mima Erazo APRN Active TRUEPLUS LANCETS 30G MISC 3 a day LANCETS 24609378473 Active Mallashondaeh Ziglari JOINT CLEANING MACHINE OPERATOR Active TOLTERODINE TARTRATE 2 MG TABS 1 pill twice daily, for bladder TOLTERODINE TARTRATE 11963814840 No Longer Active Vanessa Hickey MD Active AMITIZA 24 MCG ORAL CAPS Take one capsule BID for constipation. LUBIPROSTONE 93026666291 No Longer Active Vanessa Hickey MD Active LOMOTIL 2.5-0.025 MG ORAL TABS take 1-2 tabs PO after each stool, no more than 8 in 24 hours DIPHENOXYLATE-ATROPINE 27911020288 Active Grace Nascimento RMA Active FLUVOXAMINE MALEATE 100 MG ORAL TABS take one tab every AM et HS, and take 1/ 2 tab at noon FLUVOXAMINE MALEATE 89651166011 Active Gracekailee Nascimento RMA Active METOPROLOL SUCCINATE 100 MG [id number] 1 by mouth daily for blood pressure METOPROLOL SUCCINATE 18008934607 No Longer Active Grace Nascimento RMA Active METFORMIN HCL ER 500 MG [id number] Take three tablets by mouth everyday METFORMIN HCL 99817193751 No Longer Active Grace Nascimento RMA Active LOVAZA 1 GM CAPS 4 daily (for triglycerides) OMEGA-3- ACID ETHYL ESTERS 86870768333 No Longer Active Grace Nascimento RMA Active TRAZODONE HCL 100 MG ORAL TABS 1 tab by mouth for sleep TRAZODONE HCL 42487448221 No Longer Active Grace Nascimento RMA Active NOVOFINE 32G X 6 MM MISC use one four times per day INSULIN PEN NEEDLE 20877955290 No Longer Active Grace Nascimento RMA Active BACTROBAN 2 % CREAM Apply to affected area BID for up to 10 days MUPIROCIN CALCIUM 32812386922 No Longer Active Grace Nascimento RMA Active ZOFRAN 4 MG TABS 1 po q4hr PRN Nausea ONDANSETRON HCL 68749857414 Active Salina Han RMA Active KEFLEX 500 MG CAP 1 po BID x 7 days CEPHALEXIN 83150599621 No Longer Active Cherelle Avila APRN Active FLUVOXAMINE MALEATE 100 MG TABS Take one (1) tablet by mouth am, 1/2 at noon FLUVOXAMINE MALEATE 44181425139 No Longer Active Mima Erazo DECKER OPERATOR Active CORICIDIN HBP CONGESTION/COUGH 10-200 MG ORAL CAPS Take as directed on box as needed for cold/flu symptoms DEXTROMETHORPHAN-GUAIFENESIN 55120280834 Active Cherelle Speaks DECKER OPERATOR Active OMEGA-3 300 MG ORAL CAPS 4 caps by mouth daily OMEGA-3 FATTY ACIDS 90200757398 Active Mima Fierroum DECKER OPERATOR Active FLUVOXAMINE MALEATE 100 MG ORAL TABS Take 1/2 tab at noon FLUVOXAMINE MALEATE 84249805168 No Longer Active Cherelle Avila DECKER OPERATOR Active [facility] LUBRICANT EYE DROPS 0.4-0.3 % OPHTH SOLN POLYETHYL GLYCOL-PROPYL GLYCOL 40691535214 Active Mima Erazo DECKER OPERATOR Active CLONAZEPAM 1 MG TABS 1/2 pill by mouth three times daily CLONAZEPAM 12345187460 Active Mima Fierroum DECKER OPERATOR Active MIRALAX POWD 17g by mouth daily, for constipation POLYETHYLENE GLYCOL 3350 70466922895 Active Alina Castaneda MD PhD Active HYDROCODONE-ACETAMINOPHEN 5-325 MG TABS 2 tabs by mouth three times daily for pain HYDROCODONE-ACETAMINOPHEN 18002153406 Active Mima Erazo DECKER OPERATOR Active HUMALOG KWIKPEN 100 UNIT/ML SC SOPN 20 units with breakfast, 10 units with lunch, 10 units with dinner, for diabetes INSULIN LISPRO (HUMAN ) 17878350947 Active Alina Castaneda MD PhD Active LATUDA 120 MG ORAL TABS 1 pill by mouth nightly LURASIDONE HCL 67495477757 Active Alina Castaneda MD PhD Active TRUETEST TEST STRP check blood sugars 3x/day GLUCOSE BLOOD 18589356558 Active Marvel MENDOZAP Active ACCU-CHEK ROSA UZMA Use device to check blood sugars BLOOD GLUCOSE MONITORING SUPPL 58841959554 No Longer Active Marvel Charles JOINT CLEANING MACHINE OPERATOR Active ACCU-CHEK ROSA INVITR STRP use strips with device to check blood sugars 3 times daily GLUCOSE BLOOD 40599222467 No Longer Active Marvel MARROQUIN Active VERAPAMIL HCL ER 180 MG ORAL CR-TABS 1 pill by mouth twice daily, for migraine prevention VERAPAMIL HCL 66349731644 Active Alina Castaneda MD PhD Active CYCLOBENZAPRINE HCL 10 MG TABS 1 tablet by mouth three times daily, scheduled CYCLOBENZAPRINE HCL 95609649378 No Longer Active Alina Castaneda MD PhD Active HUMALOG 100 UNIT/ML SOLN Take 20 units with breakfast, 10u with lunch and suppetr. INSULIN LISPRO (HUMAN) 09246403623 No Longer Active Alina Castaneda MD PhD Active TRUETEST TEST STRP check sugars 4x/day GLUCOSE BLOOD 78108505803 No Longer Active Alina Castaneda MD PhD Active MORPHINE SULFATE 30 MG TABS 1 pill by mouth twice daily, for pain MORPHINE SULFATE 41692497680 Active Mima Erazo DECKER OPERATOR Active ACYCLOVIR 400 MG ORAL TABS 1 pill three times daily x 5 days, for cold sore outbreak ACYCLOVIR 69436555162 No Longer Active Alina Castaneda MD PhD Active PENICILLIN V POTASSIUM 500 MG TABS 1 pill by mouth three times daily PENICILLIN V POTASSIUM 81652014524 No Longer Active Alina Castaneda MD PhD Active UROXATRAL 10 MG [id number]-OFC Take 1 tablet by mouth daily ALFUZOSIN HCL 89032734399 No Longer Active Alina Castaneda MD PhD Active THIOTHIXENE 5 MG CAPS by mouth twice a day THIOTHIXENE 39249386888 No Longer Active Alina Castaneda MD PhD Active ZYPREXA 7.5 MG TABS 1 at HS OLANZAPINE 39039364305 No Longer Active Alina Castaneda MD PhD Active BD INSULIN SYRINGE 28G X 1/2" 1 ML MISC 1 four times per day INSULIN SYRINGE-NEEDLE U-100 40623602816 Active Marvel Thurstonari JOINT CLEANING MACHINE OPERATOR Active DETROL LA 4 MG NV74J-AEW Take 1 tablet by mouth daily TOLTERODINE TARTRATE 06139600933 No Longer Active Alina Castaneda MD PhD Active TERESE CONTOUR TEST STRP monitor blood sugars 3x/day GLUCOSE BLOOD 94499982050 No Longer Active Alina Castaneda MD PhD Active EQL TRUETEST TEST STRP Test blood sugar TID GLUCOSE BLOOD 42091392602 No Longer Active Alina Castaneda MD PhD Active FLUTICASONE PROPIONATE 50 MCG/ACT SUSP 2 sprays each nostril qDay x 30 days FLUTICASONE PROPIONATE 99085604334 No Longer Active Alina Castaneda MD PhD Active IBUPROFEN 200 MG TABS 1 Q 6 hr. PRN IBUPROFEN 58884536459 No Longer Active Alina Castaneda MD PhD Active NIACIN ER 500 MG CR-TABS 4 qHS (for triglycerides) NIACIN 91312419197 No Longer Active Alina Castaneda MD PhD Active ALFUZOSIN HCL ER 10 MG [id number]-HAL 1 tablet daily ALFUZOSIN HCL 33328133226 Active Vanessa Hickey MD Active SAPHRIS 5 MG SUBL by mouth twice a day ASENAPINE MALEATE 84325631980 No Longer Active Marvle MARROQUIN Active ACETAMINOPHEN 500 MG TABS 2 Q 6 hr. PRN ACETAMINOPHEN 88804238219 No Longer Active Marvel Thurstonari LOPEZ Active ORPHENADRINE CITRATE ER 100 MG BP71E-TKI 1 every 12 hr. as needed ORPHENADRINE CITRATE 69765705270 No Longer Active Alina Castaneda MD PhD Active NIACIN CR 500 MG CR-TABS 2 qHS NIACIN 25766767607 No Longer Active Alina Castaneda MD PhD Active AMOXICILLIN 500 MG CAPS 2 po BID x 10 days AMOXICILLIN 14968865194 No Longer Active Alina Castaneda MD PhD Active HYDROCODONE-ACETAMINOPHEN 7.5-325 MG TABS 1 four times a day as needed for pain HYDROCODONE-ACETAMINOPHEN 74917610926 No Longer Active Alina Castaneda MD PhD Active DOXEPIN HCL 10 MG CAPS Take 1 tablet by mouth daily DOXEPIN HCL 41720137581 No Longer Active Salina Han [facility] Active NAVANE 10 MG CAPS 1/2 tablet twice a day THIOTHIXENE No Longer Active Salina Han [facility] Active CYCLOBENZAPRINE HCL 10 MG TABS 1/2 tablet by mouth every 8 hours as needed for muscle spasms CYCLOBENZAPRINE HCL 22208661607 No Longer Active Alina Castaneda MD PhD Active BACTROBAN 2 % CREAM apply to ear and nose twice daily MUPIROCIN CALCIUM 48074033674 No Longer Active Alina Castaneda MD PhD Active HYDROCODONE-ACETAMINOPHEN 5-325 MG TABS take one tablet by mouth every four hours as needed for pain HYDROCODONE-ACETAMINOPHEN 33784699631 No Longer Active Alina Castaneda MD PhD Active ZOLPIDEM TARTRATE 10 MG TABS take at bedtime ZOLPIDEM TARTRATE 99864403473 Active Alina Castaneda MD PhD Active ZYPREXA 5 MG TABS take one tablet by mouth every evening OLANZAPINE 27589718889 No Longer Active Alina Castaneda MD PhD Active ALBUTEROL SULFATE 0.083 % NEBU SOLN one vial per nebulizer TID and PRN cough/ soa ALBUTEROL SULFATE 53114579909 No Longer Active Alina Castaneda MD PhD Active GUAIFENESIN 600 MG BU36A-EOF 1 tablet by mouth twice daily if needed for cough GUAIFENESIN 81719607793 No Longer Active Marvel MARROQUIN Active AZITHROMYCIN 500 MG SOLR 1 po q day AZITHROMYCIN 02219006318 No Longer Active Alina Castaneda MD PhD Active PROMETHAZINE-CODEINE 6.25-10 MG/5ML SYRP 1 tsp po q 6 hours prn cough PROMETHAZINE-CODEINE 68728726121 No Longer Active Alina Castaneda MD PhD Active CEFDINIR 300 MG CAPS by mouth twice a day CEFDINIR 92454393133 No Longer Active Alina Castaneda MD PhD Active METFORMIN HCL 500 MG LZ53N-JTT Take 3 tablets by mouth everyday METFORMIN HCL 13207311598 No Longer Active Alina Castaneda MD PhD Active LEVEMIR 100 UNIT/ML SOLN 90 units SQ qHS INSULIN DETEMIR 99598910228 No Longer Active Marvel MARROQUIN Active TOPROL XL 100 MG [id number]-FMN 1 @ HS METOPROLOL SUCCINATE 42281109292 No Longer Active Marvel MARROQUIN Active ALLOPURINOL 300 MG TABS Take one by mouth daily ALLOPURINOL 99452960176 Active Mima Erazo DECKER OPERATOR Active ZYPREXA 10 MG TABS Take one by mouth daily OLANZAPINE 63836770081 No Longer Active Alina Castaneda MD PhD Active NOVOLOG 100 UNIT/ML SOLN 40 units with every meal INSULIN ASPART 70493874961 No Longer Active Alina Castaneda MD PhD Active VERAPAMIL HCL CR 120 MG TAB CR 1 qPM VERAPAMIL HCL 55715091652 No Longer Active Salina ROJAS Active ZYPREXA 15 MG TABS Take 1 tablet by mouth daily OLANZAPINE 07697498738 No Longer Active Marvel MARROQUIN Active LISINOPRIL 20 MG TABS 1 BID LISINOPRIL 53838341387 Active Alina Castaneda MD PhD Active ALBUTEROL SULFATE (2.5 MG/3ML) 0.083% NEBU 1 neb tid and prn cough ALBUTEROL SULFATE 04239206607 No Longer Active Alina Castaneda MD PhD Active TRAVATAN Z 0.004 % SOLN 1 gtt each eye daily TRAVOPROST 68294457857 Active CRYSTAL Suarez Active LANTUS 100 UNIT/ML SOLN 60 units sq q hs INSULIN GLARGINE 82687954202 No Longer Active CRYSTAL Suarez Active ALBUTEROL SULFATE (2.5 MG/3ML) 0.083% NEBU 1 neb tid and prn cough ALBUTEROL SULFATE (2.5 MG/3ML) 0.083% NEBU 936127 ALBUTEROL SULFATE Inactive ZYPREXA 15 MG TABS Take 1 tablet by mouth daily ZYPREXA 15 MG TABS 882904 OLANZAPINE Inactive VERAPAMIL HCL CR 120 MG TAB CR 1 qPM VERAPAMIL HCL CR 120 MG TAB CR VERAPAMIL HCL Inactive ZYPREXA 10 MG TABS Take one by mouth daily ZYPREXA 10 MG TABS 494649 OLANZAPINE Inactive TOPROL XL 100 MG [id number]-[id number] 1 @ HS TOPROL XL 100 MG AF86T-KUI METOPROLOL SUCCINATE Inactive LEVEMIR 100 UNIT/ML SOLN 90 units SQ qHS LEVEMIR 100 UNIT/ML SOLN INSULIN DETEMIR Inactive PROMETHAZINE-CODEINE 6.25-10 MG/5ML SYRP 1 tsp po q 6 hours prn cough PROMETHAZINE-CODEINE 6.25-10 MG/5ML SYRP 918518 PROMETHAZINE- CODEINE Inactive GUAIFENESIN 600 MG [id number] 1 tablet by mouth twice daily if needed for cough GUAIFENESIN 600 MG LB36M-NOK GUAIFENESIN Inactive ALBUTEROL SULFATE 0.083 % NEBU SOLN one vial per nebulizer TID and PRN cough/ soa ALBUTEROL SULFATE 0.083 % NEBU SOLN 635800 ALBUTEROL SULFATE Inactive ZYPREXA 5 MG TABS take one tablet by mouth every evening ZYPREXA 5 MG TABS 656779 OLANZAPINE Inactive HYDROCODONE-ACETAMINOPHEN 5-325 MG TABS take one tablet by mouth every four hours as needed for pain HYDROCODONE-ACETAMINOPHEN 5-325 MG TABS 940839 HYDROCODONE-ACETAMINOPHEN Inactive BACTROBAN 2 % CREAM apply to ear and nose twice daily BACTROBAN 2 % CREAM 614868 MUPIROCIN CALCIUM Inactive CYCLOBENZAPRINE HCL 10 MG TABS 1/2 tablet by mouth every 8 hours as needed for muscle spasms CYCLOBENZAPRINE HCL 10 MG TABS 404325 CYCLOBENZAPRINE HCL Inactive NAVANE 10 MG CAPS 1/2 tablet twice a day NAVANE 10 MG CAPS THIOTHIXENE Inactive DOXEPIN HCL 10 MG CAPS Take 1 tablet by mouth daily DOXEPIN HCL 10 MG CAPS 7030905 DOXEPIN HCL Inactive HYDROCODONE-ACETAMINOPHEN 7.5-325 MG TABS 1 four times a day as needed for pain HYDROCODONE-ACETAMINOPHEN 7.5-325 MG TABS 288007 HYDROCODONE-ACETAMINOPHEN Inactive NIACIN CR 500 MG CR-TABS 2 qHS NIACIN CR 500 MG CR- TABS NIACIN Inactive ORPHENADRINE CITRATE ER 100 MG [id number] 1 every 12 hr. as needed ORPHENADRINE CITRATE ER 100 MG [id number] ORPHENADRINE CITRATE Inactive ACETAMINOPHEN 500 MG TABS 2 Q 6 hr. PRN ACETAMINOPHEN 500 MG TABS 635295 ACETAMINOPHEN Inactive SAPHRIS 5 MG SUBL by mouth twice a day SAPHRIS 5 MG SUBL ASENAPINE MALEATE Inactive NIACIN ER 500 MG CR-TABS 4 qHS (for triglycerides) NIACIN ER 500 MG CR-TABS NIACIN Inactive IBUPROFEN 200 MG TABS 1 Q 6 hr. PRN IBUPROFEN 200 MG TABS 761732 IBUPROFEN Inactive FLUTICASONE PROPIONATE 50 MCG/ACT SUSP 2 sprays each nostril qDay x 30 days FLUTICASONE PROPIONATE 50 MCG/ACT SUSP 744977 FLUTICASONE PROPIONATE Inactive EQL TRUETEST TEST STRP Test blood sugar TID EQL TRUETEST TEST STRP GLUCOSE BLOOD Inactive TERESE CONTOUR TEST STRP monitor blood sugars 3x/day TERESE CONTOUR TEST STRP GLUCOSE BLOOD Inactive DETROL LA 4 MG [id number]-COV Take 1 tablet by mouth daily DETROL LA 4 MG TL33H-SMR TOLTERODINE TARTRATE Inactive ZYPREXA 7.5 MG TABS 1 at HS ZYPREXA 7.5 MG TABS 982043 OLANZAPINE Inactive THIOTHIXENE 5 MG CAPS by mouth twice a day THIOTHIXENE 5 MG CAPS 918456 THIOTHIXENE Inactive UROXATRAL 10 MG OQ25A-XGO Take 1 tablet by mouth daily UROXATRAL 10 MG [id number] ALFUZOSIN HCL Inactive ACYCLOVIR 400 MG ORAL TABS 1 pill three times daily x 5 days, for cold sore outbreak ACYCLOVIR 400 MG ORAL TABS 192148 ACYCLOVIR Inactive TRUETEST TEST STRP check sugars 4x/day TRUETEST TEST STRP GLUCOSE BLOOD Inactive HUMALOG 100 UNIT/ML SOLN Take 20 units with breakfast, 10u with lunch and suppetr. HUMALOG 100 UNIT/ML SOLN INSULIN LISPRO ( HUMAN) Inactive CYCLOBENZAPRINE HCL 10 MG TABS 1 tablet by mouth three times daily, scheduled CYCLOBENZAPRINE HCL 10 MG TABS 844742 CYCLOBENZAPRINE HCL Inactive ACCU-CHEK ROSA INVITR STRP use strips with device to check blood sugars 3 times daily ACCU-CHEK ROSA INVITR STRP GLUCOSE BLOOD Inactive ACCU-CHEK ROSA UZMA Use device to check blood sugars ACCU-CHEK ROSA UZMA BLOOD GLUCOSE MONITORING SUPPL Inactive FLUVOXAMINE MALEATE 100 MG ORAL TABS Take 1/2 tab at noon FLUVOXAMINE MALEATE 100 MG ORAL TABS 891749 FLUVOXAMINE MALEATE Inactive FLUVOXAMINE MALEATE 100 MG TABS Take one (1) tablet by mouth am, 1/2 at noon FLUVOXAMINE MALEATE 100 MG TABS 991062 FLUVOXAMINE MALEATE Inactive BACTROBAN 2 % CREAM Apply to affected area BID for up to 10 days BACTROBAN 2 % CREAM 943611 MUPIROCIN CALCIUM Inactive NOVOFINE 32G X 6 MM MISC use one four times per day NOVOFINE 32G X 6 MM MISC INSULIN PEN NEEDLE Inactive TRAZODONE HCL 100 MG ORAL TABS 1 tab by mouth for sleep TRAZODONE HCL 100 MG ORAL TABS 619385 TRAZODONE HCL Inactive LOVAZA 1 GM CAPS 4 daily (for triglycerides) LOVAZA 1 GM CAPS 665377 LUEHZ-3-JICG ETHYL ESTERS Inactive METFORMIN HCL ER 500 MG VL89H-JYE Take three tablets by mouth everyday METFORMIN HCL ER 500 MG UL78C-GQY METFORMIN HCL Inactive METOPROLOL SUCCINATE 100 MG XT29G-GCA 1 by mouth daily for blood pressure METOPROLOL SUCCINATE 100 MG VR56E-CPX METOPROLOL SUCCINATE Inactive AMITIZA 24 MCG ORAL CAPS Take one capsule BID for constipation. AMITIZA 24 MCG ORAL CAPS LUBIPROSTONE Inactive TOLTERODINE TARTRATE 2 MG TABS 1 pill twice daily, for bladder TOLTERODINE TARTRATE 2 MG TABS 084629 TOLTERODINE TARTRATE Inactive COLACE 100 MG CAPS 1 pill by mouth twice daily, for constipation COLACE 100 MG CAPS 3782037 DOCUSATE SODIUM Inactive CEFDINIR 300 MG CAPS by mouth twice a day CEFDINIR 300 MG CAPS 537851 CEFDINIR Inactive AZITHROMYCIN 500 MG SOLR 1 po q day AZITHROMYCIN 500 MG SOLR 92716768750 AZITHROMYCIN Inactive AMOXICILLIN 500 MG CAPS 2 po BID x 10 days AMOXICILLIN 500 MG CAPS 562667 AMOXICILLIN Inactive PENICILLIN V POTASSIUM 500 MG TABS 1 pill by mouth three times daily PENICILLIN V POTASSIUM 500 MG TABS 613191 PENICILLIN V POTASSIUM Inactive KEFLEX 500 MG CAP 1 po BID x 7 days KEFLEX 500 MG CAP 672680 CEPHALEXIN Inactive Immunizations Vaccine Administration Date Value [...] Fluvirin, Fluarix, Agriflu(>=18 yo)) Fluzone (>3 yrs.) [[id number]] Influenza, seasonal, injectable pneumococcal immunization administered Pneumovax [...] Panel - Chemistry sodium, serum 137 mmol/L 279-817 3884/10/12 potassium, serum 4.8 mmol/L 3.5-5.2 chloride, serum 102 mmol/L 98-107 carbon dioxide, venous blood 27.6 mmol/L 21.0-32.0 blood glucose 168 mg/dL 65-110 calcium, serum 9.0 mg/dL 8.5-10.1 urea nitrogen, blood 15 mg/dL 7-18 creatinine, serum 1.04 mg/dL 0.55-1.30 sodium, serum 138 mmol/L 776-800 7898/11/11 potassium, serum 4.7 mmol/L 3.5-5.2 chloride, serum [...] % 11.6-14.8 platelet count 240 10^3/MM^3 10*3/mm3 635-253 5474/11/11 leukocyte count, blood 9.6 10^3/MM^3 10*3/mm3 4.6-10.2 [...] 4.7 mg/dL 2.6-7.2 cholesterol, serum 142 mg/dL 923-566 6043/06/26 triglyceride, serum, fasting 272 mg/dL 30-200 HDL [...] negative Encounters Code Encounter Date Provider Facility CPT-34306 Level 3 Est. Patient 16:27:51 CDT Mima Erazo [facility]-42090 Level 3 Est. Patient 14:39:00 CHARGE HISTOTECHNOLOGIST Vanessa Hickey MD [facility]-47712 Level 2 Est. Patient 18:43:34 CDT Mima Erazo [facility] CPT-69080 Level 3 Est. Patient 16:22:09 CDT Cherelle Avila [facility] CPT-69841 Level 4 Est. Patient 17:55:14 CDT Mima Erazo [facility]-86710 Level 2 Est. Patient 17:13:21 CDT Alina Castaneda MD [facility]-44324 Level 3 Est. Patient 14:46:15 CDT Vanessa Hickey MD [facility]-67682 Level 3 Est. Patient 09:34:56 CDT Alina Castaneda MD [facility]98419 Level 3 Est. Patient 21:40:19 CDT Mima Erazo [facility]-07705 Level 3 Est. Patient 09:26:40 CDT Marvel Charles [facility]-71470 Level 3 Est. Patient 12:36:43 CDT Vanessa Hickey MD [facility]-82249 Level 3 Est. Patient 12:57:49 CDT Vanessa Hickey MD [facility]-04986 Level 3 Est. Patient 00:28:25 CDT Alina Castaneda MD [facility]72913 Level 2 Est. Patient 12:52:14 CDT Alina Castaneda MD [facility]25780 Level 3 Est. Patient 11:51:18 CHARGE HISTOTECHNOLOGIST Alina Castaneda MD [facility]-75101 Level 3 Est. Patient 10:09:22 CHARGE HISTOTECHNOLOGIST Alina Castaneda MD [facility]-54728 Level 3 Est. Patient 14:36:26 CHARGE HISTOTECHNOLOGIST Marvel Charles [facility]-82334 Level 3 Est. Patient 13:34:47 CHARGE HISTOTECHNOLOGIST Alina Castaneda MD [facility]-53952 Level 3 Est. Patient 19:52:08 CHARGE HISTOTECHNOLOGIST Alina Castaneda MD [facility]-38526 Level 3 Est. Patient 10:01:51 CHARGE HISTOTECHNOLOGIST Marvel Charles [facility]-65303 Level 3 Est. Patient 21:54:06 CDT Vanessa Hickey MD [facility]-80513 Level 3 Est. Patient 08:54:46 CDT Alina Castaneda MD [facility]-70724 Level 3 Est. Patient 09:32:11 CDT Marvel Charles [facility]-88870 Level 3 Est. Patient 12:02:49 CDT Alina Castaneda MD [facility]-94133 Level 3 Est. Patient 19:17:33 CDT Alina Castaneda MD [facility]-74433 Level 3 Est. Patient 13:19:10 CDT Marvel Charles [facility]-79397 Level 3 Est. Patient 08:20:05 CDT Alina Castaneda MD [facility]99274 Level 3 Est. Patient 15:17:18 CDT Alina Castaneda MD [facility]-32597 Level 3 Est. Patient 14:25:36 CHARGE HISTOTECHNOLOGIST Marvel Charles [facility]-99984 Level 3 Est. Patient 10:09:15 CHARGE HISTOTECHNOLOGIST Marvel Charles [facility] CPT-58612 Level 3 Est. Patient 21:28:43 CDT Alina Castaneda MD [facility]-80211 Level 3 Est. Patient 15:20:11 CDT Marvel Thurstonestela [facility] CPT-09486 Level 4 Est. Patient 19:08:12 CDT Alina Castaneda MD [facility] CPT-88046 Level 3 Est. Patient 15:06:39 CDT Marvel Thurstonestela [facility] CPT-60822 Level 4 Est. Patient 17:48:15 CDT Alina Castaneda MD [facility]-13354 Level 3 Est. Patient 14:53:49 CDT Alina Castaneda MD [facility] CPT-86127 Level 3 Est. Patient 09:35:16 CDT Alina Castaneda MD [facility]-71618 Level 3 Est. Patient 12:23:22 CDT Alina Castaneda MD [facility] CPT-82702 Level 3 Est. Patient 16:19:15 CDT Alina Castaneda MD [facility] CPT-08409 Level 3 Est. Patient 21:39:56 CHARGE HISTOTECHNOLOGIST Alina Castaneda MD [facility] CPT-82239 Level 4 Est. Patient 14:12:56 CHARGE HISTOTECHNOLOGIST Alina Castaneda MD [facility]-44126 Level 2 Est. Patient 15:34:57 CHARGE HISTOTECHNOLOGIST Alina Castaneda MD [facility] CPT-81030 Level 3 Est. Patient 12:17:04 CHARGE HISTOTECHNOLOGIST Alina Castaneda MD [facility]-98362 Level 3 Est. Patient 09:18:18 CHARGE HISTOTECHNOLOGIST Brookslashondanivia Araceli [facility]-02558 Level 2 Est. Patient 21:50:24 CDT Alina Castaneda MD [facility]23388 Level 3 Est. Patient 09:17:28 CDT Marvel Charles [facility]-40902 Level 4 Est. Patient 18:54:02 CDT Alina Castaneda MD [facility]41061 Level 3 Est. Patient 10:47:10 CDT Alina Castaneda MD [facility]51916 Level 3 Est. Patient 09:22:20 CDT Brookslashondanivia Araceli [facility]-65917 Level 3 Est. Patient 16:39:43 CDT Brooksjohn Charles [facility]-05848 Level 3 Est. Patient 16:05:16 CDT Alina Castaneda MD [facility]70265 Level 3 Est. Patient 00:29:15 CDT Alina Castaneda MD [facility]00076 Level 3 Est. Patient 10:49:22 CHARGE HISTOTECHNOLOGIST Marvel Charles [facility] [facility] Level 3 Est. Patient 21:30:19 CHARGE HISTOTECHNOLOGIST Alina Castaneda MD [facility]-94033 Level 4 Est. Patient 17:04:11 CHARGE HISTOTECHNOLOGIST Marvel Charles [facility]02334 Level 3 Est. Patient 15:34:11 CHARGE HISTOTECHNOLOGIST Marvel Charles [facility]-17340 Level 2 Est. Patient 12:51:58 CHARGE HISTOTECHNOLOGIST Alina Castaneda MD PhD [facility] CPT-41482 Level 3 Est. Patient 13:20:01 CHARGE HISTOTECHNOLOGIST Alina Castaneda MD PhD [facility] CPT-10717 Level 3 Est. Patient 09:23:35 CDT Alina Castaneda MD PhD [facility] Procedures Code Procedure Name Date Entry Date Standard Description CPT-36305 Bladder Scan 14:39:01 CHARGE HISTOTECHNOLOGIST CPT-TCMM Transitional Care Mgmt-Moderate 10:30:19 CHARGE HISTOTECHNOLOGIST CPT-43005 Bladder Scan 12:36:44 CDT CPT-63478 Bladder Scan 21:54:06 CDT CPT-G0008 Administration of Influenza Virus Vaccine 13:05:26 CDT CPT-51108 Fluzone Quadrivalent Intramuscular Suspension 0.5 ML 13: 05:26 CDT CPT-84952 Administration single or combination vaccine inc oral 11 :49:51 CDT CPT-63488 Pneumovax 11:49:51 CDT CPT-59930 Ribs unilateral 2V 12:37:22 CHARGE HISTOTECHNOLOGIST CPT-30409 Chest 2V Frontal and Lat 17:15:26 CDT CPT-73735 Abx/Therapy Injection 18:54:02 CDT CPT-J0696 Rocephin 1000 mg (Ceftriaxone) 16:00:32 CDT CPT-87624 Chest 2V Frontal and Lat 15:26:45 CDT CPT-24344 Chest 2V Frontal and Lat 10:23:27 CDT CPT-53380 Venipuncture Draw Fee 10:11:00 CDT CPT-19709 Administration single or combination vaccine inc oral 11 :56:38 CDT CPT-42476 Influenza split virus > age 3 11:56:38 CDT CPT-70577 Venipuncture Draw Fee 08:49:54 CHARGE HISTOTECHNOLOGIST CPT-84584 EKG Trac and Interp 17:54:19 CHARGE HISTOTECHNOLOGIST
--- OUTSIDE RECORDS SUMMARY | 2018-07-02 18:22 | XMS REPORT | Clinical Summary ---
[...] STRP check blood sugars 3x/day GLUCOSE BLOOD 58901920568 Active Marvel MENDOZAP Active ACCU-CHEK ROSA UZMA Use device to check blood sugars BLOOD GLUCOSE MONITORING SUPPL 78986089878 No Longer Active Marvel MENDOZAP Active ACCU-CHEK ROSA INVITR STRP use strips with device to check blood sugars 3 times daily GLUCOSE BLOOD 09442686605 No Longer [facility] Active VERAPAMIL HCL ER 180 MG ORAL CR-TABS 1 pill by mouth twice daily, for migraine prevention VERAPAMIL HCL 58698960017 Active Alina Castaneda MD PhD Active CYCLOBENZAPRINE HCL 10 MG TABS 1 tablet by mouth three times daily, scheduled CYCLOBENZAPRINE HCL 89094441865 No Longer Active Alina Castaneda MD PhD Active HUMALOG 100 UNIT/ML SOLN Take 20 units with breakfast, 10u with lunch and suppetr. INSULIN LISPRO (HUMAN) 79328264265 No Longer Active Alina Castaneda MD PhD Active TRUETEST TEST STRP check sugars 4x/day GLUCOSE BLOOD 17993770339 No Longer Active Alina Castaneda MD PhD Active MORPHINE SULFATE 30 MG TABS 1 pill by mouth twice daily, for pain MORPHINE SULFATE 65769227019 Active Alina Castaneda MD PhD Active ACYCLOVIR 400 MG ORAL TABS 1 pill three times daily x 5 days, for cold sore outbreak ACYCLOVIR 39973031122 No Longer Active Alina Castaneda MD PhD Active PENICILLIN V POTASSIUM 500 MG TABS 1 pill by mouth three times daily PENICILLIN V POTASSIUM 06829355896 No Longer Active Alina Castaneda MD PhD Active LATUDA 80 MG TABS 1 tab by mouth every evening LURASIDONE HCL 29228955469 Active Alina Castaneda MD PhD Active UROXATRAL 10 MG [id number] Take 1 tablet by mouth daily ALFUZOSIN HCL 52386954813 No Longer Active Alina Castaneda MD PhD Active THIOTHIXENE 5 MG CAPS by mouth twice a day THIOTHIXENE 24873576557 No Longer Active Alina Castaneda MD PhD Active ZYPREXA 7.5 MG TABS 1 at HS OLANZAPINE 56598033292 No Longer Active Alina Castaneda MD PhD Active LEVEMIR 100 UNIT/ML SOLN Take 70 u at 7-8pm INSULIN DETEMIR 28133505418 Active Maljohn Ziglari CONTRACT PROJECT MANAGER Active BD INSULIN SYRINGE 28G X 1/2" 1 ML MISC 1 four times per day INSULIN SYRINGE-NEEDLE U-100 42194070874 Active Marvel Mackenzieglari CONTRACT PROJECT MANAGER Active TOLTERODINE TARTRATE 2 MG TABS 1 pill twice daily, for bladder TOLTERODINE TARTRATE 61936481527 Active Alina Castaneda MD PhD Active DETROL LA 4 MG [id number] Take 1 tablet by mouth daily TOLTERODINE TARTRATE 95407533839 No Longer Active Alina Castaneda MD PhD Active HYDROCODONE-ACETAMINOPHEN 5-325 MG TABS 2 tabs by mouth three times daily as needed for pain HYDROCODONE-ACETAMINOPHEN 39252697626 Active Alina Castaneda MD PhD Active TERESE CONTOUR TEST STRP monitor blood sugars 3x/day GLUCOSE BLOOD 08278116103 No Longer Active Alina Castaneda MD PhD Active EQL TRUETEST TEST STRP Test blood sugar TID GLUCOSE BLOOD 39662293484 No Longer Active Alina Castaneda MD PhD Active FLUTICASONE PROPIONATE 50 MCG/ACT SUSP 2 sprays each nostril qDay x 30 days FLUTICASONE PROPIONATE 58288268604 No Longer Active Alina Castaneda MD PhD Active IBUPROFEN 200 MG TABS 1 Q 6 hr. PRN IBUPROFEN 92016574298 No Longer Active Alina Castaneda MD PhD Active NIACIN ER 500 MG CR-TABS 4 qHS (for triglycerides) NIACIN 06562260943 No Longer Active Alina Casatneda MD PhD Active ALFUZOSIN HCL ER 10 MG [id number] 1 tablet daily ALFUZOSIN HCL 92815857443 Active Vanessa Hickey MD Active CLONAZEPAM 1 MG TABS 1 pill by mouth three times daily CLONAZEPAM 18920871936 Active Alina Castaneda MD PhD Active LOVAZA 1 GM CAPS 4 daily (for triglycerides) [id number] ETHYL ESTERS 73563037291 Active Alina Castaneda MD PhD Active SAPHRIS 5 MG SUBL by mouth twice a day ASENAPINE MALEATE 20917155996 No Longer Active Maljohn Mackenzieglari CONTRACT PROJECT MANAGER Active ACETAMINOPHEN 500 MG TABS 2 Q 6 hr. PRN ACETAMINOPHEN 16764142163 No Longer Active Maliheh Ziglari CONTRACT PROJECT MANAGER Active ORPHENADRINE CITRATE ER 100 MG [id number] 1 every 12 hr. as needed ORPHENADRINE CITRATE 91129427471 No Longer Active Alina Castaneda MD PhD Active NIACIN CR 500 MG CR-TABS 2 qHS NIACIN 53277840664 No Longer Active lAina Castaneda MD PhD Active AMOXICILLIN 500 MG CAPS 2 po BID x 10 days AMOXICILLIN 04461088438 No Longer Active Alina Castaneda MD PhD Active HYDROCODONE-ACETAMINOPHEN 7.5-325 MG TABS 1 four times a day as needed for pain HYDROCODONE-ACETAMINOPHEN 27427278751 No Longer Active Alina Castaneda MD PhD Active METFORMIN HCL ER 500 MG [id number]-FHM Take three tablets by mouth everyday METFORMIN HCL 95352499505 Active Alina Castaneda MD PhD Active DOXEPIN HCL 10 MG CAPS Take 1 tablet by mouth daily DOXEPIN HCL 93599534021 No Longer Active Salina Han [facility] Active NAVANE 10 MG CAPS 1/2 tablet twice a day THIOTHIXENE No Longer Active Salina Han [facility] Active CYCLOBENZAPRINE HCL 10 MG TABS 1/2 tablet by mouth every 8 hours as needed for muscle spasms CYCLOBENZAPRINE HCL 94666162351 No Longer Active Alina Castaneda MD PhD Active BACTROBAN 2 % CREAM apply to ear and nose twice daily MUPIROCIN CALCIUM 83630347450 No Longer Active Alina Castaneda MD PhD Active HYDROCODONE-ACETAMINOPHEN 5-325 MG TABS take one tablet by mouth every four hours as needed for pain HYDROCODONE-ACETAMINOPHEN 10230140334 No Longer Active Alina Castaneda MD PhD Active ZOLPIDEM TARTRATE 10 MG TABS take at bedtime ZOLPIDEM TARTRATE 92651547306 Active Alina Castaneda MD PhD Active ZYPREXA 5 MG TABS take one tablet by mouth every evening OLANZAPINE 61151805973 No Longer Active Alina Castaneda MD PhD Active ALBUTEROL SULFATE 0.083 % NEBU SOLN one vial per nebulizer TID and PRN cough/ soa ALBUTEROL SULFATE 11252654699 No Longer Active Alina Castaneda MD PhD Active GUAIFENESIN 600 MG HA95N-QHU 1 tablet by mouth twice daily if needed for cough GUAIFENESIN 33694565773 No Longer Active Marvel MARROQUIN Active AZITHROMYCIN 500 MG SOLR 1 po q day AZITHROMYCIN 93860068289 No Longer Active Alina Castaneda MD PhD Active METOPROLOL SUCCINATE 100 MG [id number] 1 by mouth daily for blood pressure METOPROLOL SUCCINATE 92260310372 Active Alina Castaneda MD PhD Active PROMETHAZINE-CODEINE 6.25-10 MG/5ML SYRP 1 tsp po q 6 hours prn cough PROMETHAZINE-CODEINE 71068413268 No Longer Active Alina Castaneda MD PhD Active CEFDINIR 300 MG CAPS by mouth twice a day CEFDINIR 63905389572 No Longer Active Alina Castaneda MD PhD Active METFORMIN HCL 500 MG PH58M-YQV Take 3 tablets by mouth everyday METFORMIN HCL 69295232615 No Longer Active Alina Castaneda MD PhD Active LEVEMIR 100 UNIT/ML SOLN 90 units SQ qHS INSULIN DETEMIR 71765841432 No Longer Active Marvel MARROQUIN Active TOPROL XL 100 MG [id number] 1 @ HS METOPROLOL SUCCINATE 49213826983 No Longer Active Marvel MARROQUIN Active ALLOPURINOL 300 MG TABS Take one by mouth daily ALLOPURINOL 15943797604 Active Alina Castaneda MD PhD Active ZYPREXA 10 MG TABS Take one by mouth daily OLANZAPINE 09650753315 No Longer Active Alina Castaneda MD PhD Active NOVOLOG 100 UNIT/ML SOLN 40 units with every meal INSULIN ASPART 09187204905 No Longer Active Alina Castaneda MD PhD Active VERAPAMIL HCL CR 120 MG TAB CR 1 qPM VERAPAMIL HCL 06739193819 No Longer Active Salina Han [facility] Active ZYPREXA 15 MG TABS Take 1 tablet by mouth daily OLANZAPINE 32436769320 No Longer Active Marvel MARROQUIN Active LISINOPRIL 20 MG TABS 1 BID LISINOPRIL 10278896069 Active Alina Castaneda MD PhD Active ALBUTEROL SULFATE (2.5 MG/3ML) 0.083% NEBU 1 neb tid and prn cough ALBUTEROL SULFATE 54741959777 No Longer Active Alina Castaneda MD PhD Active FLUVOXAMINE MALEATE 100 MG TABS Take one (1) tablet by mouth am, 05/25 at noon, 1 pm FLUVOXAMINE MALEATE 15207426025 Active Alina Castaneda MD PhD Active TRAVATAN Z 0.004 % SOLN 1 gtt each eye daily TRAVOPROST 67668280990 Active CRYSTAL Suarez Active LANTUS 100 UNIT/ML SOLN 60 units sq q hs INSULIN GLARGINE 01912823343 No Longer Active CRYSTAL Suarez Active ALBUTEROL SULFATE (2.5 MG/3ML) 0.083% NEBU 1 neb tid and prn cough ALBUTEROL SULFATE (2.5 MG/3ML) 0.083% NEBU 164085 ALBUTEROL SULFATE Inactive ZYPREXA 15 MG TABS Take 1 tablet by mouth daily ZYPREXA 15 MG TABS 223354 OLANZAPINE Inactive VERAPAMIL HCL CR 120 MG TAB CR 1 qPM VERAPAMIL HCL CR 120 MG TAB CR VERAPAMIL HCL Inactive ZYPREXA 10 MG TABS Take one by mouth daily ZYPREXA 10 MG TABS 928969 OLANZAPINE Inactive TOPROL XL 100 MG [id number] 1 @ HS TOPROL XL 100 MG [id number] METOPROLOL SUCCINATE Inactive LEVEMIR 100 UNIT/ML SOLN 90 units SQ qHS LEVEMIR 100 UNIT/ML SOLN INSULIN DETEMIR Inactive PROMETHAZINE-CODEINE 6.25-10 MG/5ML SYRP 1 tsp po q 6 hours prn cough PROMETHAZINE-CODEINE 6.25-10 MG/5ML SYRP 090879 PROMETHAZINE- CODEINE Inactive GUAIFENESIN 600 MG [id number] 1 tablet by mouth twice daily if needed for cough GUAIFENESIN 600 MG [id number] GUAIFENESIN Inactive ALBUTEROL SULFATE 0.083 % NEBU SOLN one vial per nebulizer TID and PRN cough/ soa ALBUTEROL SULFATE 0.083 % [facility] 5311[facility] ALBUTEROL SULFATE Inactive ZYPREXA 5 MG TABS take one tablet by mouth every evening ZYPREXA 5 MG TABS 269567 OLANZAPINE Inactive HYDROCODONE-ACETAMINOPHEN 5-325 MG TABS take one tablet by mouth every four hours as needed for pain HYDROCODONE-ACETAMINOPHEN 5-325 MG TABS 793374 HYDROCODONE-ACETAMINOPHEN Inactive BACTROBAN 2 % CREAM apply to ear and nose twice daily BACTROBAN 2 % CREAM 756543 MUPIROCIN CALCIUM Inactive CYCLOBENZAPRINE HCL 10 MG TABS 1/2 tablet by mouth every 8 hours as needed for muscle spasms CYCLOBENZAPRINE HCL 10 MG TABS 034088 CYCLOBENZAPRINE HCL Inactive NAVANE 10 MG CAPS 1/2 tablet twice a day NAVANE 10 MG CAPS THIOTHIXENE Inactive DOXEPIN HCL 10 MG CAPS Take 1 tablet by mouth daily DOXEPIN HCL 10 MG CAPS 8101616 DOXEPIN HCL Inactive HYDROCODONE-ACETAMINOPHEN 7.5-325 MG TABS 1 four times a day as needed for pain HYDROCODONE-ACETAMINOPHEN 7.5-325 MG TABS 148095 HYDROCODONE-ACETAMINOPHEN Inactive NIACIN CR 500 MG CR-TABS 2 qHS NIACIN CR 500 MG CR- TABS NIACIN Inactive ORPHENADRINE CITRATE ER 100 MG [id number] 1 every 12 hr. as needed ORPHENADRINE CITRATE ER 100 MG [id number] ORPHENADRINE CITRATE Inactive ACETAMINOPHEN 500 MG TABS 2 Q 6 hr. PRN ACETAMINOPHEN 500 MG TABS 805674 ACETAMINOPHEN Inactive SAPHRIS 5 MG SUBL by mouth twice a day SAPHRIS 5 MG SUBL ASENAPINE MALEATE Inactive NIACIN ER 500 MG CR-TABS 4 qHS (for triglycerides) NIACIN ER 500 MG CR-TABS NIACIN Inactive IBUPROFEN 200 MG TABS 1 Q 6 hr. PRN IBUPROFEN 200 MG TABS 726305 IBUPROFEN Inactive FLUTICASONE PROPIONATE 50 MCG/ACT SUSP 2 sprays each nostril qDay x 30 days FLUTICASONE PROPIONATE 50 MCG/ACT SUSP 435583 FLUTICASONE PROPIONATE Inactive EQL TRUETEST TEST STRP Test blood sugar TID EQL TRUETEST TEST STRP GLUCOSE BLOOD Inactive TERESE CONTOUR TEST STRP monitor blood sugars 3x/day TERESE CONTOUR TEST STRP GLUCOSE BLOOD Inactive DETROL LA 4 MG IN29Q-QFU Take 1 tablet by mouth daily DETROL LA 4 MG [id number] TOLTERODINE TARTRATE Inactive ZYPREXA 7.5 MG TABS 1 at HS ZYPREXA 7.5 MG TABS 507256 OLANZAPINE Inactive THIOTHIXENE 5 MG CAPS by mouth twice a day THIOTHIXENE 5 MG CAPS 436526 THIOTHIXENE Inactive UROXATRAL 10 MG HB68R-KFU Take 1 tablet by mouth daily UROXATRAL 10 MG [id number] ALFUZOSIN HCL Inactive ACYCLOVIR 400 MG ORAL TABS 1 pill three times daily x 5 days, for cold sore outbreak ACYCLOVIR 400 MG ORAL TABS 742929 ACYCLOVIR Inactive TRUETEST TEST STRP check sugars 4x/day TRUETEST TEST STRP GLUCOSE BLOOD Inactive HUMALOG 100 UNIT/ML SOLN Take 20 units with breakfast, 10u with lunch and suppetr. HUMALOG 100 UNIT/ML SOLN INSULIN LISPRO ( HUMAN) Inactive CYCLOBENZAPRINE HCL 10 MG TABS 1 tablet by mouth three times daily, scheduled CYCLOBENZAPRINE HCL 10 MG TABS 354353 CYCLOBENZAPRINE HCL Inactive ACCU-CHEK ROSA INVITR STRP use strips with device to check blood sugars 3 times daily ACCU-CHEK ROSA INVITR STRP GLUCOSE BLOOD Inactive ACCU-CHEK ROSA UZMA Use device to check blood sugars ACCU-CHEK ROSA UZMA BLOOD GLUCOSE MONITORING SUPPL Inactive CEFDINIR 300 MG CAPS by mouth twice a day CEFDINIR 300 MG CAPS 197141 CEFDINIR Inactive AZITHROMYCIN 500 MG SOLR 1 po q day AZITHROMYCIN 500 MG SOLR 283896 AZITHROMYCIN Inactive AMOXICILLIN 500 MG CAPS 2 po BID x 10 days AMOXICILLIN 500 MG CAPS 863941 AMOXICILLIN Inactive PENICILLIN V POTASSIUM 500 MG TABS 1 pill by mouth three times daily PENICILLIN V POTASSIUM 500 MG TABS 060325 PENICILLIN V POTASSIUM Inactive Immunizations Vaccine Administration [...] Fluvirin, Fluarix, Agriflu(>=18 yo)) Fluzone (>3 yrs.) [[id number]] Influenza, seasonal, injectable pneumococcal immunization administered Pneumovax [...] HGBA1C - Chemistry sodium, serum 130 mmol/L 555-865 7274/06/09 potassium, serum 4.0 mmol/L 3.5-5.2 chloride, serum 92 mmol/L 98-107 carbon dioxide, venous blood 22.1 mmol/L 21.0-32.0 blood glucose 60 mg/dL 65-110 calcium, serum 9.5 mg/dL 8.5-10.1 urea nitrogen, blood 14 mg/dL 7-18 creatinine, serum 1.30 mg/dL 0.60-1.30 hemoglobin A1C, blood, as % of total hemoglobin 6.0 % 4.3-6.0 sodium, serum 131 mmol/L 081-969 4665/12/30 potassium, serum 5.0 mmol/L 3.5-5.2 chloride, serum [...] 6.0 mg/dL 2.6-7.2 sodium, serum 130 mmol/L 222-957 8718/05/01 potassium, serum 5.2 mmol/L 3.5-5.2 chloride, serum [...] 0.40 mg/dL 0.00-1.00 cholesterol, serum 151 mg/dL 627-581 3150/05/01 triglyceride, serum, fasting 356 mg/dL 30-200 HDL [...] Panel - Chemistry sodium, serum 127 mmol/L 244-367 5390/10/27 potassium, serum 4.1 mmol/L 3.5-5.2 chloride, serum [...] mg/dL Encounters Code Encounter Date Provider Facility CPT-01647 Level 2 Est. Patient 12:52:14 CDT Alina Castaneda MD [facility]-77514 Level 3 Est. Patient 11:51:18 APPLIANCE SERVICE REPRESENTATIVE Alina Castaneda MD [facility] CPT-43507 Level 3 Est. Patient 10:09:22 APPLIANCE SERVICE REPRESENTATIVE Alina Castaneda MD [facility]-55276 Level 3 Est. Patient 14:36:26 APPLIANCE SERVICE REPRESENTATIVE Marvel Charles [facility] CPT-96841 Level 3 Est. Patient 13:34:47 APPLIANCE SERVICE REPRESENTATIVE Alina Castaneda MD [facility] CPT-12677 Level 3 Est. Patient 19:52:08 APPLIANCE SERVICE REPRESENTATIVE Alina Castaneda MD [facility]-75116 Level 3 Est. Patient 10:01:51 APPLIANCE SERVICE REPRESENTATIVE Marvel Charles [facility] CPT-21472 Level 3 Est. Patient 21:54:06 CDT Vanessa Hickey MD [facility]-95462 Level 3 Est. Patient 08:54:46 CDT Alina Castaneda MD [facility]65984 Level 3 Est. Patient 09:32:11 [facility]T [facility]-44323 Level 3 Est. Patient 12:02:49 CDT Alina Castaneda MD [facility]-34950 Level 3 Est. Patient 19:17:33 CDT Alina Castaneda MD [facility]09058 Level 3 Est. Patient 13:19:10 CDT Marvel Charles [facility]-90490 Level 3 Est. Patient 08:20:05 CDT Alina Castaneda MD [facility]24916 Level 3 Est. Patient 15:17:18 CDT Alina Castaneda MD [facility]36765 Level 3 Est. Patient 14:25:36 APPLIANCE SERVICE REPRESENTATIVE Marvel Charles [facility]-53066 Level 3 Est. Patient 10:09:15 APPLIANCE SERVICE REPRESENTATIVE Marvel Charles [facility]-21439 Level 3 Est. Patient 21:28:43 CDT Alina Castaneda MD [facility]-54641 Level 3 Est. Patient 15:20:11 [facility] 4 Est. Patient 19:08:12 CDT Alina Castaneda MD [facility]73529 Level 3 Est. Patient 15:06:39 CDT Marvel Araceli [facility]-57711 Level 4 Est. Patient 17:48:15 CDT Alina Castaneda MD [facility]03069 Level 3 Est. Patient 14:53:49 CDT Alina Castaneda MD [facility]40092 Level 3 Est. Patient 09:35:16 CDT Alina Castaneda MD [facility]-02703 Level 3 Est. Patient 12:23:22 CDT Alina Castaneda MD [facility]42078 Level 3 Est. Patient 16:19:15 CDT Alina Castaneda MD [facility]02652 Level 3 Est. Patient 21:39:56 APPLIANCE SERVICE REPRESENTATIVE Alina Castaneda MD [facility]-97139 Level 4 Est. Patient 14:12:56 APPLIANCE SERVICE REPRESENTATIVE Alina Castaneda MD [facility]34927 Level 2 Est. Patient 15:34:57 APPLIANCE SERVICE REPRESENTATIVE Alina Castaneda MD [facility]-17784 Level 3 Est. Patient 12:17:04 APPLIANCE SERVICE REPRESENTATIVE Alina Castaneda MD [facility]-31053 Level 3 Est. Patient 09:18:18 APPLIANCE SERVICE REPRESENTATIVE Marvel Charles [facility]-43113 Level 2 Est. Patient 21:50:24 CDT Alina Castaneda MD [facility]-66315 Level 3 Est. Patient 09:17:28 CDT Marvel Charles [facility]-72310 Level 4 Est. Patient 18:54:02 CDT Alina Castaneda MD [facility]-53184 Level 3 Est. Patient 10:47:10 CDT Alina Castaneda MD [facility]96576 Level 3 Est. Patient 09:22:20 CDT Marvel Charles [facility]38063 Level 3 Est. Patient 16:39:43 CDT Marvel Charles [facility]-48861 Level 3 Est. Patient 16:05:16 CDT Alina Castaneda MD [facility] CPT-45818 Level 3 Est. Patient 00:29:15 CDT Alina Castaneda MD [facility] CPT-65696 Level 3 Est. Patient 10:49:22 APPLIANCE SERVICE REPRESENTATIVE Brook[place] Thurstonestela [facility] CPT-94770 Level 3 Est. Patient 21:30:19 APPLIANCE SERVICE REPRESENTATIVE Alina Castaneda MD [facility] CPT-19805 Level 4 Est. Patient 17:04:11 APPLIANCE SERVICE REPRESENTATIVE [facility] CPT-00869 Level 3 Est. Patient 15:34:11 APPLIANCE SERVICE REPRESENTATIVE [facility] CPT-12837 Level 2 Est. Patient 12:51:58 APPLIANCE SERVICE REPRESENTATIVE Alina Castaneda MD [facility] CPT-75166 Level 3 Est. Patient 13:20:01 APPLIANCE SERVICE REPRESENTATIVE Alina Castaneda MD [facility] CPT-57671 Level 3 Est. Patient 09:23:35 CDT Alina Castaneda MD [facility] Procedures Code Procedure Name Date Entry Date Standard Description CPT-49352 Bladder Scan 21:54:06 CDT CPT-G0008 Administration of Influenza Virus Vaccine 13:05:26 CDT CPT-54716 Fluzone Quadrivalent Intramuscular Suspension 0.5 ML 13: 05:26 CDT CPT-44103 Administration single or combination vaccine inc oral 11 :49:51 CDT CPT-69788 Pneumovax 11:49:51 CDT CPT-19687 Ribs unilateral 2V 12:37:22 APPLIANCE SERVICE REPRESENTATIVE CPT-76813 Chest 2V Frontal and Lat 17:15:26 CDT CPT-68501 Abx/Therapy Injection 18:54:02 CDT CPT-J0696 Rocephin 1000 mg (Ceftriaxone) 16:00:32 CDT CPT-99335 Chest 2V Frontal and Lat 15:26:45 CDT CPT-96978 Chest 2V Frontal and Lat 10:23:27 CDT CPT-52316 Venipuncture Draw Fee 10:11:00 CDT CPT-64259 Administration single or combination vaccine inc oral 11 :56:38 CDT CPT-87928 Influenza split virus > age 3 11:56:38 CDT CPT-73000 Venipuncture Draw Fee 08:49:54 APPLIANCE SERVICE REPRESENTATIVE CPT-80746 EKG Trac and Interp 17:54:19 APPLIANCE SERVICE REPRESENTATIVE
--- OUTSIDE RECORDS SUMMARY | 2018-07-02 18:25 | XMS REPORT | Clinical Summary ---
Author Author Admin, TERELL Organization [facility] Address Unknown Phone Unavailable Allergies, Adverse Reactions, [...] unspecified Diabetes mellitus, type II 250.00 Active Zaninivia Araceli MARROQUIN Diabetes mellitus without mention of [...] mouth three times daily for pain HYDROCODONE-ACETAMINOPHEN 29052549503 Active Alina Castaneda MD PhD Active HUMALOG KWIKPEN 100 UNIT/ML SC SOPN 20 units with breakfast, 10 units with lunch, 10 units with dinner, for diabetes INSULIN LISPRO (HUMAN ) 53837760568 Active Alina Castaneda MD PhD Active LEVEMIR FLEXTOUCH 100 UNIT/ML SC SOPN 70 units SQ each evening, for diabetes INSULIN DETEMIR 27664451558 Active Alina Castaneda MD PhD Active LATUDA 120 MG ORAL TABS 1 pill by mouth nightly LURASIDONE HCL 82624676916 Active Alina Castaneda MD PhD Active COLACE 100 MG CAPS 1 pill by mouth twice daily, for constipation DOCUSATE SODIUM 45827206415 Active Alina Castaneda MD PhD Active TRUETEST TEST STRP check blood sugars 3x/day GLUCOSE BLOOD 00934548912 Active Maljohn Ziglari DIRECTOR INDEPENDENT Active ACCU-CHEK ROSA UZMA Use device to check blood sugars BLOOD GLUCOSE MONITORING SUPPL 98095974742 No Longer Active [facility] Z[facility] DIRECTOR INDEPENDENT Active ACCU-CHEK ROSA INVITR STRP use strips with device to check blood sugars 3 times daily GLUCOSE BLOOD 87741526775 No Longer Active [facility] 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 DIRECTOR INDEPENDENT Active VERAPAMIL HCL ER 180 MG ORAL CR-TABS 1 pill by mouth twice daily, for migraine prevention VERAPAMIL HCL 10659927154 Active Alina Castaneda MD PhD Active CYCLOBENZAPRINE HCL 10 MG TABS 1 tablet by mouth three times daily, scheduled CYCLOBENZAPRINE HCL 73154232080 No Longer Active Alina Castaneda MD PhD Active HUMALOG 100 UNIT/ML SOLN Take 20 units with breakfast, 10u with lunch and suppetr. INSULIN LISPRO (HUMAN) 43689121637 No Longer Active Alina Castaneda MD PhD Active TRUETEST TEST STRP check sugars 4x/day GLUCOSE BLOOD 38072494476 No Longer Active lAina Castaneda MD PhD Active MORPHINE SULFATE 30 MG TABS 1 pill by mouth twice daily, for pain MORPHINE SULFATE 29813670219 Active Alina Castaneda MD PhD Active ACYCLOVIR 400 MG ORAL TABS 1 pill three times daily x 5 days, for cold sore outbreak ACYCLOVIR 35293543393 No Longer Active Alina Castaneda MD PhD Active PENICILLIN V POTASSIUM 500 MG TABS 1 pill by mouth three times daily PENICILLIN V POTASSIUM 14119210735 No Longer Active Alina Castaneda MD PhD Active UROXATRAL 10 MG [id number] Take 1 tablet by mouth daily ALFUZOSIN HCL 59366745051 No Longer Active Alina Castaneda MD PhD Active THIOTHIXENE 5 MG CAPS by mouth twice a day THIOTHIXENE 78542985311 No Longer Active Alina Castaneda MD PhD Active ZYPREXA 7.5 MG TABS 1 at HS OLANZAPINE 65291492274 No Longer Active Alina Castaneda MD PhD Active BD INSULIN SYRINGE 28G X 1/2" 1 ML MISC 1 four times per day INSULIN SYRINGE-NEEDLE U-100 77622522163 Active Marvel Charles [facility] Active TOLTERODINE TARTRATE 2 MG TABS 1 pill twice daily, for bladder TOLTERODINE TARTRATE 58327658554 Active Alina Castaneda MD PhD Active DETROL LA 4 MG [id number] Take 1 tablet by mouth daily TOLTERODINE TARTRATE 18620558785 No Longer Active Alina Castaneda MD PhD Active TERESE CONTOUR TEST STRP monitor blood sugars 3x/day GLUCOSE BLOOD 88174758206 No Longer Active Alina Castaneda MD PhD Active EQL TRUETEST TEST STRP Test blood sugar TID GLUCOSE BLOOD 54136098637 No Longer Active Alina Castaneda MD PhD Active FLUTICASONE PROPIONATE 50 MCG/ACT SUSP 2 sprays each nostril qDay x 30 days FLUTICASONE PROPIONATE 11028354734 No Longer Active Alina Castaneda MD PhD Active IBUPROFEN 200 MG TABS 1 Q 6 hr. PRN IBUPROFEN 63402292680 No Longer Active Alina Castaneda MD PhD Active NIACIN ER 500 MG CR-TABS 4 qHS (for triglycerides) NIACIN 68080266130 No Longer Active Alina Castaneda MD PhD Active ALFUZOSIN HCL ER 10 MG [id number] 1 tablet daily ALFUZOSIN HCL 94449041912 Active Vanessa Hickey MD Active CLONAZEPAM 1 MG TABS 1 pill by mouth three times daily CLONAZEPAM 86116068545 Active Alina Castaneda MD PhD Active LOVAZA 1 GM CAPS 4 daily (for triglycerides) [id number] ETHYL ESTERS 36642158080 Active Alina Castaneda MD PhD Active SAPHRIS 5 MG SUBL by mouth twice a day ASENAPINE MALEATE 05064848536 No Longer Active Marvel MARROQUIN Active ACETAMINOPHEN 500 MG TABS 2 Q 6 hr. PRN ACETAMINOPHEN 34420751335 No Longer Active Marvel MARROQUIN Active ORPHENADRINE CITRATE ER 100 MG [id number] 1 every 12 hr. as needed ORPHENADRINE CITRATE 74753729906 No Longer Active Alina Castaneda MD PhD Active NIACIN CR 500 MG CR-TABS 2 qHS NIACIN 18870043925 No Longer Active Alina Castaneda MD PhD Active AMOXICILLIN 500 MG CAPS 2 po BID x 10 days AMOXICILLIN 72796566417 No Longer Active Alina Castaneda MD PhD Active HYDROCODONE-ACETAMINOPHEN 7.5-325 MG TABS 1 four times a day as needed for pain HYDROCODONE-ACETAMINOPHEN 21582140929 No Longer Active Alina Castaneda MD PhD Active METFORMIN HCL ER 500 MG [id number] Take three tablets by mouth everyday METFORMIN HCL 54570773479 Active Marvel Ziglari DIRECTOR INDEPENDENT Active DOXEPIN HCL 10 MG CAPS Take 1 tablet by mouth daily DOXEPIN HCL 62154856133 No Longer Active Salina Emely [facility] Active NAVANE 10 MG CAPS 1/2 tablet twice a day THIOTHIXENE No Longer Active Salina Han [facility] Active CYCLOBENZAPRINE HCL 10 MG TABS 1/2 tablet by mouth every 8 hours as needed for muscle spasms CYCLOBENZAPRINE HCL 57044540146 No Longer Active Alina Castaneda MD PhD Active BACTROBAN 2 % CREAM apply to ear and nose twice daily MUPIROCIN CALCIUM 98988761909 No Longer Active Alina Castaneda MD PhD Active HYDROCODONE-ACETAMINOPHEN 5-325 MG TABS take one tablet by mouth every four hours as needed for pain HYDROCODONE-ACETAMINOPHEN 42019761299 No Longer Active Alina Castaneda MD PhD Active ZOLPIDEM TARTRATE 10 MG TABS take at bedtime ZOLPIDEM TARTRATE 34416739929 Active Alina Castaneda MD PhD Active ZYPREXA 5 MG TABS take one tablet by mouth every evening OLANZAPINE 01511000848 No Longer Active Alina Castaneda MD PhD Active ALBUTEROL SULFATE 0.083 % NEBU SOLN one vial per nebulizer TID and PRN cough/ soa ALBUTEROL SULFATE 24229905382 No Longer Active Alina Castaneda MD PhD Active GUAIFENESIN 600 MG JZ01C-SRD 1 tablet by mouth twice daily if needed for cough GUAIFENESIN 53288203211 No Longer Active Marvel MENDOZAP Active AZITHROMYCIN 500 MG SOLR 1 po q day AZITHROMYCIN 06878512305 No Longer Active Alina Castaneda MD PhD Active METOPROLOL SUCCINATE 100 MG AV04B-HRZ 1 by mouth daily for blood pressure METOPROLOL SUCCINATE 98833378006 Active Alina Castaneda MD PhD Active PROMETHAZINE-CODEINE 6.25-10 MG/5ML SYRP 1 tsp po q 6 hours prn cough PROMETHAZINE-CODEINE 65508065574 No Longer Active Alina Castaneda MD PhD Active CEFDINIR 300 MG CAPS by mouth twice a day CEFDINIR 60449799608 No Longer Active Alina Castaneda MD PhD Active METFORMIN HCL 500 MG EE57P-QBC Take 3 tablets by mouth everyday METFORMIN HCL 31716783057 No Longer Active Alina Castaneda MD PhD Active LEVEMIR 100 UNIT/ML SOLN 90 units SQ qHS INSULIN DETEMIR 86116289155 No Longer Active Marvel MARROQUIN Active TOPROL XL 100 MG ZK66J-NIS 1 @ HS METOPROLOL SUCCINATE 52212484831 No Longer Active Marvel MARROQUIN Active ALLOPURINOL 300 MG TABS Take one by mouth daily ALLOPURINOL 40144813635 Active Alina Castaneda MD PhD Active ZYPREXA 10 MG TABS Take one by mouth daily OLANZAPINE 84761823295 No Longer Active Alina Castaneda MD PhD Active NOVOLOG 100 UNIT/ML SOLN 40 units with every meal INSULIN ASPART 17984020278 No Longer Active Alina Castaneda MD PhD Active VERAPAMIL HCL CR 120 MG TAB CR 1 qPM VERAPAMIL HCL 83140996391 No Longer Active Salina ROJAS Active ZYPREXA 15 MG TABS Take 1 tablet by mouth daily OLANZAPINE 24904089627 No Longer Active Marvel MARROQUIN Active LISINOPRIL 20 MG TABS 1 BID LISINOPRIL 55266679374 Active Alina Castaneda MD PhD Active ALBUTEROL SULFATE (2.5 MG/3ML) 0.083% NEBU 1 neb tid and prn cough ALBUTEROL SULFATE 15699905647 No Longer Active Alina Castaneda MD PhD Active FLUVOXAMINE MALEATE 100 MG TABS Take one (1) tablet by mouth am, 1/2 at noon, 1 pm FLUVOXAMINE MALEATE 80988468488 Active Alina Castaneda MD PhD Active TRAVATAN Z 0.004 % SOLN 1 gtt each eye daily TRAVOPROST 54364974786 Active Alina Andrea, RMA Active LANTUS 100 UNIT/ML SOLN 60 units sq q hs INSULIN GLARGINE 55184240536 No Longer Active Alina AndreaCRYSTAL Active ALBUTEROL SULFATE (2.5 MG/3ML) 0.083% NEBU 1 neb tid and prn cough ALBUTEROL SULFATE (2.5 MG/3ML) 0.083% NEBU 956148 ALBUTEROL SULFATE Inactive ZYPREXA 15 MG TABS Take 1 tablet by mouth daily ZYPREXA 15 MG TABS 416834 OLANZAPINE Inactive VERAPAMIL HCL CR 120 MG TAB CR 1 qPM VERAPAMIL HCL CR 120 MG TAB CR VERAPAMIL HCL Inactive ZYPREXA 10 MG TABS Take one by mouth daily ZYPREXA 10 MG TABS 597595 OLANZAPINE Inactive TOPROL XL 100 MG [id number] 1 @ HS TOPROL XL 100 MG [id number]-[id number] METOPROLOL SUCCINATE Inactive LEVEMIR 100 UNIT/ML SOLN 90 units SQ qHS LEVEMIR 100 UNIT/ML SOLN INSULIN DETEMIR Inactive PROMETHAZINE-CODEINE 6.25-10 MG/5ML SYRP 1 tsp po q 6 hours prn cough PROMETHAZINE-CODEINE 6.25-10 MG/5ML SYRP 819994 PROMETHAZINE- CODEINE Inactive GUAIFENESIN 600 MG [id number]-YIQ 1 tablet by mouth twice daily if needed for cough GUAIFENESIN 600 MG [id number]-JXA GUAIFENESIN Inactive ALBUTEROL SULFATE 0.083 % NEBU SOLN one vial per nebulizer TID and PRN cough/ soa ALBUTEROL SULFATE 0.083 % NEBU SOLN 438142 ALBUTEROL SULFATE Inactive ZYPREXA 5 MG TABS take one tablet by mouth every evening ZYPREXA 5 MG TABS 689047 OLANZAPINE Inactive HYDROCODONE-ACETAMINOPHEN 5-325 MG TABS take one tablet by mouth every four hours as needed for pain HYDROCODONE-ACETAMINOPHEN 5-325 MG TABS 774804 HYDROCODONE-ACETAMINOPHEN Inactive BACTROBAN 2 % CREAM apply to ear and nose twice daily BACTROBAN 2 % CREAM 908841 MUPIROCIN CALCIUM Inactive CYCLOBENZAPRINE HCL 10 MG TABS 1/2 tablet by mouth every 8 hours as needed for muscle spasms CYCLOBENZAPRINE HCL 10 MG TABS 304063 CYCLOBENZAPRINE HCL Inactive NAVANE 10 MG CAPS 1/2 tablet twice a day NAVANE 10 MG CAPS THIOTHIXENE Inactive DOXEPIN HCL 10 MG CAPS Take 1 tablet by mouth daily DOXEPIN HCL 10 MG CAPS 2124660 DOXEPIN HCL Inactive HYDROCODONE-ACETAMINOPHEN 7.5-325 MG TABS 1 four times a day as needed for pain HYDROCODONE-ACETAMINOPHEN 7.5-325 MG TABS 490159 HYDROCODONE-ACETAMINOPHEN Inactive NIACIN CR 500 MG CR-TABS 2 qHS NIACIN CR 500 MG CR- TABS NIACIN Inactive ORPHENADRINE CITRATE ER 100 MG [id number] 1 every 12 hr. as needed ORPHENADRINE CITRATE ER 100 MG [id number]-XGZ ORPHENADRINE CITRATE Inactive ACETAMINOPHEN 500 MG TABS 2 Q 6 hr. PRN ACETAMINOPHEN 500 MG TABS 255277 ACETAMINOPHEN Inactive SAPHRIS 5 MG SUBL by mouth twice a day SAPHRIS 5 MG SUBL ASENAPINE MALEATE Inactive NIACIN ER 500 MG CR-TABS 4 qHS (for triglycerides) NIACIN ER 500 MG CR-TABS NIACIN Inactive IBUPROFEN 200 MG TABS 1 Q 6 hr. PRN IBUPROFEN 200 MG TABS 436524 IBUPROFEN Inactive FLUTICASONE PROPIONATE 50 MCG/ACT SUSP 2 sprays each nostril qDay x 30 days FLUTICASONE PROPIONATE 50 MCG/ACT SUSP 074658 FLUTICASONE PROPIONATE Inactive EQL TRUETEST TEST STRP Test blood sugar TID EQL TRUETEST TEST STRP GLUCOSE BLOOD Inactive TERESE CONTOUR TEST STRP monitor blood sugars 3x/day TERESE CONTOUR TEST STRP GLUCOSE BLOOD Inactive DETROL LA 4 MG [id number]-IQN Take 1 tablet by mouth daily DETROL LA 4 MG FS34F-CQF TOLTERODINE TARTRATE Inactive ZYPREXA 7.5 MG TABS 1 at HS ZYPREXA 7.5 MG TABS 596397 OLANZAPINE Inactive THIOTHIXENE 5 MG CAPS by mouth twice a day THIOTHIXENE 5 MG CAPS 661504 THIOTHIXENE Inactive UROXATRAL 10 MG EO86I-SQB Take 1 tablet by mouth daily UROXATRAL 10 MG BP67A-ZTP ALFUZOSIN HCL Inactive ACYCLOVIR 400 MG ORAL TABS 1 pill three times daily x 5 days, for cold sore outbreak ACYCLOVIR 400 MG ORAL TABS 373952 ACYCLOVIR Inactive TRUETEST TEST STRP check sugars 4x/day TRUETEST TEST STRP GLUCOSE BLOOD Inactive HUMALOG 100 UNIT/ML SOLN Take 20 units with breakfast, 10u with lunch and suppetr. HUMALOG 100 UNIT/ML SOLN INSULIN LISPRO ( HUMAN) Inactive CYCLOBENZAPRINE HCL 10 MG TABS 1 tablet by mouth three times daily, scheduled CYCLOBENZAPRINE HCL 10 MG TABS 069363 CYCLOBENZAPRINE HCL Inactive ACCU-CHEK ROSA INVITR STRP use strips with device to check blood sugars 3 times daily ACCU-CHEK ROSA INVITR STRP GLUCOSE BLOOD Inactive ACCU-CHEK ROSA UZMA Use device to check blood sugars ACCU-CHEK ROSA UZMA BLOOD GLUCOSE MONITORING SUPPL Inactive CEFDINIR 300 MG CAPS by mouth twice a day CEFDINIR 300 MG CAPS 770958 CEFDINIR Inactive AZITHROMYCIN 500 MG SOLR 1 po q day AZITHROMYCIN 500 MG SOLR 451967 AZITHROMYCIN Inactive AMOXICILLIN 500 MG CAPS 2 po BID x 10 days AMOXICILLIN 500 MG CAPS 669899 AMOXICILLIN Inactive PENICILLIN V POTASSIUM 500 MG TABS 1 pill by mouth three times daily PENICILLIN V POTASSIUM 500 MG TABS 046362 PENICILLIN V POTASSIUM Inactive Immunizations Vaccine Administration [...] Fluvirin, Fluarix, Agriflu(>=18 yo)) Fluzone (>3 yrs.) [[id number]] Influenza, seasonal, injectable pneumococcal immunization administered Pneumovax [...] HGBA1C - Chemistry sodium, serum 131 mmol/L 744-372 8260/12/30 potassium, serum 5.0 mmol/L 3.5-5.2 chloride, serum 95 mmol/L 98-107 carbon dioxide, venous blood 26.7 mmol/L 21.0-32.0 blood glucose 112 mg/dL 65-110 calcium, serum 9.2 mg/dL 8.5-10.1 urea nitrogen, blood 12 mg/dL 7-18 creatinine, serum 1.10 mg/dL 0.60-1.30 hemoglobin A1C, blood, as % of total hemoglobin 5.8 % 4.3-6.0 Lab Report: Basic Metabolic Panel, HGBA1C, MICROALBUMIN - Chemistry sodium, serum 137 mmol/L 437-223 2456/05/19 potassium, serum 5.2 mmol/L 3.5-5.2 chloride, serum [...] microalbumin, urine 10 0-19 Lab Report: Chlamydia/GC APTIMA/25595, HIV-1/2 Agn/Dominga/80332, RPR (DX) W ... - Chemistry hepatitis B surface antigen NON-REACTIVE NON-REACTIVE Lab Report: Chlamydia/GC APTIMA/32237, HIV-1/2 Agn/Dominga/53327, RPR (DX) W ... - Lab chlamydia DNA probe NOT DETECTED NOT DETECTED Lab Report: Chlamydia/GC APTIMA/00215, HIV-1/2 Agn/Dominga/48701, RPR (DX) W ... - Microbiology Neisseria gonorrhoeae DNA probe NOT DETECTED NOT DETECTED Lab Report: Chlamydia/GC APTIMA/23344, HIV-1/2 Agn/Dominga/15462, RPR (DX) W ... - Serology rapid plasma reagin antibody titer NON-REACTIVE NON-REACTIVE Lab Report: Comp. Metabolic Panel - Chemistry sodium, serum 127 mmol/L 762-645 3769/10/27 potassium, serum 4.1 mmol/L 3.5-5.2 chloride, serum [...] CBC - Chemistry cholesterol, serum 131 mg/dL 198-385 0472/06/03 triglyceride, serum, fasting 383 mg/dL 30-200 HDL [...] 4.7 mg/dL 2.6-7.2 cholesterol, serum 142 mg/dL 768-376 9394/06/26 triglyceride, serum, fasting 272 mg/dL 30-200 HDL [...] mg/dL Encounters Code Encounter Date Provider Facility CPT-77535 Level 3 Est. Patient 14:46:15 [facility] Level 3 Est. Patient 09:34:56 CDT Alina Castaneda MD [facility]-25513 Level 3 Est. Patient 21:40:19 CDT Mima Erazo ALBAN [facility]-23007 Level 3 Est. Patient 09:26:40 CDT Marvel Charles [facility]-30224 Level 3 Est. Patient 12:36:43 CDT Vanessa Hickey MD [facility]-93007 Level 3 Est. Patient 12:57:49 CDT Vanessa Hickye MD [facility]-63377 Level 3 Est. Patient 00:28:25 CDT Alina Cast[facility] MD [facility]50809 Level 2 Est. Patient 12:52:14 CDT Alina Castaneda MD [facility]65842 Level 3 Est. Patient 11:51:18 ELECTRONICS TEST ENGINEER Alnia Castaneda MD [facility]-75983 Level 3 Est. Patient 10:09:22 ELECTRONICS TEST ENGINEER Alina Castaneda MD [facility]37056 Level 3 Est. Patient 14:36:26 ELECTRONICS TEST ENGINEER Marvel Charles [facility]-91310 Level 3 Est. Patient 13:34:47 ELECTRONICS TEST ENGINEER Alina Castaneda MD [facility]-23760 Level 3 Est. Patient 19:52:08 ELECTRONICS TEST ENGINEER Alina Castaneda MD [facility]-52921 Level 3 Est. Patient 10:01:51 ELECTRONICS TEST ENGINEER Marvel Charles [facility]43741 Level 3 Est. Patient 21:54:06 CDT Vanessa Hickey MD [facility]-45697 Level 3 Est. Patient 08:54:46 CDT Alina Castaneda MD [facility]-97489 Level 3 Est. Patient 09:32:11 CDT Marvel Gurdeepajayestela [facility]-84981 Level 3 Est. Patient 12:02:49 CDT Alina Castaneda MD [facility]-15769 Level 3 Est. Patient 19:17:33 CDT Alina Castaneda MD [facility]19980 Level 3 Est. Patient 13:19:10 CDT Marvel Gurdeepajayestela [facility]-77655 Level 3 Est. Patient 08:20:05 CDT Alina Castaneda MD [facility]-56733 Level 3 Est. Patient 15:17:18 CDT Alina Castaneda MD [facility]-26634 Level 3 Est. Patient 14:25:36 ELECTRONICS TEST ENGINEER [facility] Est[facility] Patient 10:09:15 ELECTRONICS TEST ENGINEER Marvel Charles [facility]-71082 Level 3 Est. Patient 21:28:43 CDT Alina Castaneda MD [facility]-95394 Level 3 Est. Patient 15:20:11 CDT Marvel Araceli [facility]-60682 Level 4 Est. Patient 19:08:12 CDT Alina Castaneda MD [facility]-72089 Level 3 Est. Patient 15:06:39 CDT Marvel Charles [facility]-28530 Level 4 Est. Patient 17:48:15 CDT Alina Castaneda MD [facility]-60352 Level 3 Est. Patient 14:53:49 CDT Alina Castaneda MD [facility]-99452 Level 3 Est. Patient 09:35:16 CDT Alina Castaneda MD [facility]-81642 Level 3 Est. Patient 12:23:22 CDT Alina Castaneda MD [facility]01650 Level 3 Est. Patient 16:19:15 CDT Alina Castaneda MD [facility]-80347 Level 3 Est. Patient 21:39:56 ELECTRONICS TEST ENGINEER Alina Castaneda MD [facility]-89226 Level 4 Est. Patient 14:12:56 ELECTRONICS TEST ENGINEER Alina Castaneda MD [facility]-49383 Level 2 Est. Patient 15:34:57 ELECTRONICS TEST ENGINEER Alina Castaneda MD [facility]-75310 Level 3 Est. Patient 12:17:04 ELECTRONICS TEST ENGINEER Alina Castaneda MD [facility]-95077 Level 3 Est. Patient 09:18:18 ELECTRONICS TEST ENGINEER Marvel Charles [facility]-92685 Level 2 Est. Patient 21:50:24 CDT Alina Castaneda MD [facility]-44383 Level 3 Est. Patient 09:17:28 CDT Marvel Charles [facility]-85460 Level 4 Est. Patient 18:54:02 CDT Alina Castaneda MD [facility]98384 Level 3 Est. Patient 10:47:10 CDT Alina Castaneda MD [facility]17409 Level 3 Est. Patient 09:22:20 CDT Marvel [address]es [facility]-30694 Level 3 Est. Patient 16:39:43 CDT [facility]60378 Level 3 Est. Patient 16:05:16 CDT Alina Castaneda MD [facility] CPT-57232 Level 3 Est. Patient 00:29:15 CDT Alina Castaneda MD [facility] CPT-20999 Level 3 Est. Patient 10:49:22 ELECTRONICS TEST ENGINEER Marvel Gurdeepajayestela [facility] CPT-61357 Level 3 Est. Patient 21:30:19 ELECTRONICS TEST ENGINEER Alina Castaneda MD [facility] CPT-13837 Level 4 Est. Patient 17:04:11 ELECTRONICS TEST ENGINEER [place] Gurdeepajayestela [facility] CPT-23477 Level 3 Est. Patient 15:34:11 ELECTRONICS TEST ENGINEER [facility]06405 Level 2 Est. Patient 12:51:58 ELECTRONICS TEST ENGINEER Alina Castaneda MD [facility] CPT-37491 Level 3 Est. Patient 13:20:01 ELECTRONICS TEST ENGINEER Alina Castaneda MD [facility] CPT-18885 Level 3 Est. Patient 09:23:35 CDT Alina Castaneda MD [facility] Procedures Code Procedure Name Date Entry Date Standard Description CPT-88469 Bladder Scan 12:36:44 CDT CPT-07178 Bladder Scan 21:54:06 CDT CPT-G0008 Administration of Influenza Virus Vaccine 13:05:26 CDT CPT-02674 Fluzone Quadrivalent Intramuscular Suspension 0.5 ML 13: 05:26 CDT CPT-17636 Administration single or combination vaccine inc oral 11 :49:51 CDT CPT-40488 Pneumovax 11:49:51 CDT CPT-41566 Ribs unilateral 2V 12:37:22 ELECTRONICS TEST ENGINEER CPT-44823 Chest 2V Frontal and Lat 17:15:26 CDT CPT-89062 Abx/Therapy Injection 18:54:02 CDT CPT-J0696 Rocephin 1000 mg (Ceftriaxone) 16:00:32 CDT CPT-61841 Chest 2V Frontal and Lat 15:26:45 CDT CPT-42766 Chest 2V Frontal and Lat 10:23:27 CDT CPT-71289 Venipuncture Draw Fee 10:11:00 CDT CPT-59053 Administration single or combination vaccine inc oral 11 :56:38 CDT CPT-42913 Influenza split virus > age 3 11:56:38 CDT CPT-88978 Venipuncture Draw Fee 08:49:54 ELECTRONICS TEST ENGINEER CPT-73045 EKG Trac and Interp 17:54:19 ELECTRONICS TEST ENGINEER
--- OUTSIDE RECORDS SUMMARY | 2018-07-02 18:28 | XMS REPORT | Clinical Summary ---
[...] MD PhD Cough SINUSITIS, ACUTE 461.9 Resolved Alian Castaneda MD PhD Acute sinusitis, unspecified BRONCHITIS, 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 Erazo SHIRT HEMMER Benign paroxysmal positional vertigo Vertigo, benign paroxysmal position 386.11 Inactive Mima Erazo SHIRT HEMMER Benign paroxysmal positional vertigo High-risk sexual behavior V69.2 Active Alina Castaneda MD PhD High-risk sexual behavior Erectile dysfunction 302.72 Active Alina Castaneda MD PhD Psychosexual dysfunction with inhibited sexual excitement Constipation 564.00 Active Alina Castaneda MD PhD Constipation, unspecified Skin lesion 709.9 Active Alina Castaneda MD PhD Unspecified disorder of skin and subcutaneous tissue Malaise and fatigue 780.79 Active Cherelle Speaks SHIRT HEMMER Other malaise and fatigue Diarrhea 787.91 Active Cherelle Speaks SHIRT HEMMER Diarrhea PHARYNGITIS 462 Active Cherelle Speaks SHIRT HEMMER Acute pharyngitis Colitis 558.9 Active Mima Erazo SHIRT HEMMER Other and unspecified noninfectious gastroenteritis and colitis WOUND, OPEN, NOSE ICD-873.20 Inactive Alina Csataneda MD PhD DIABETES, TYPE 2 ICD-250.00 Inactive Alina Castaneda MD PhD HYPERTENSION ICD-401.9 Inactive Alina Castaneda MD PhD URI ICD-465.9 Inactive Alina Castaneda MD PhD CHEST PAIN ICD-786.50 Inactive Alina Castaneda MD PhD FH STROKE ICD-V17.1 Inactive Marvel Charles MANAGED CARE MANAGER FATIGUE ICD-780.79 Inactive Alina Castaneda MD [...] x 1 week then daily FLUTICASONE PROPIONATE 33760499179 Active Mima Erazo SHIRT HEMMER Active BD PEN NEEDLE MINI U/F 31G X 5 MM MISC 4 a day INSULIN PEN NEEDLE 73011142362 Active Marvel Mackenzieglestela MANAGED CARE MANAGER Active AMITIZA 24 MCG ORAL CAPS Take one capsule BID for constipation LUBIPROSTONE 12438888478 Active Mima Erazo SHIRT HEMMER Active LEVEMIR FLEXTOUCH 100 UNIT/ML SC SOPN 75 units SQ each evening, for diabetes INSULIN DETEMIR 41729044452 Active CRYSTAL Rodrigues Active TRUEPLUS LANCETS 30G MISC 3 a day LANCETS 10540072787 Active Marvel MARROQUIN Active TOLTERODINE TARTRATE 2 MG TABS 1 pill twice daily, for bladder TOLTERODINE TARTRATE 32973813540 No Longer Active Vanessa Hickey MD Active AMITIZA 24 MCG ORAL CAPS Take one capsule BID for constipation. LUBIPROSTONE 37507764192 No Longer Active Vanessa Hickey MD Active LOMOTIL 2.5-0.025 MG ORAL TABS take 1-2 tabs PO after each stool, no more than 8 in 24 hours DIPHENOXYLATE-ATROPINE 08835679804 Active Grace Azam RMA Active FLUVOXAMINE MALEATE 100 MG ORAL TABS take one tab every AM et HS, and take 1/ 2 tab at noon FLUVOXAMINE MALEATE 32577564327 Active Grace Azam RMA Active METOPROLOL SUCCINATE 100 MG [id number] 1 by mouth daily for blood pressure METOPROLOL SUCCINATE 91660544562 No Longer Active Grace Azam RMA Active METFORMIN HCL ER 500 MG [id number]-JIA Take three tablets by mouth everyday METFORMIN HCL 81432492480 No Longer Active Grace Azam RMA Active LOVAZA 1 GM CAPS 4 daily (for triglycerides) OMEGA-3- ACID ETHYL ESTERS 40312461430 No Longer Active Grace Azam RMA Active TRAZODONE HCL 100 MG ORAL TABS 1 tab by mouth for sleep TRAZODONE HCL 09960239176 No Longer Active Grace Azam RMA Active NOVOFINE 32G X 6 MM MISC use one four times per day INSULIN PEN NEEDLE 46321624836 No Longer Active Grace Azam RMA Active BACTROBAN 2 % CREAM Apply to affected area BID for up to 10 days MUPIROCIN CALCIUM 13021951337 No Longer Active Grace Azam RMA Active ZOFRAN 4 MG TABS 1 po q4hr PRN [place]ausea ONDANSETRON HCL 19818558725 Active Salina Ervinford RMA Active KEFLEX 500 MG CAP 1 po BID x 7 days CEPHALEXIN 11244959713 No Longer Active Cherelle Avila SHIRT HEMMER Active FLUVOXAMINE MALEATE 100 MG TABS Take one (1) tablet by mouth am, 1/2 at noon FLUVOXAMINE MALEATE 77343883447 No Longer Active Mima Erazo SHIRT HEMMER Active CORICIDIN HBP CONGESTION/COUGH 10-200 MG ORAL CAPS Take as directed on box as needed for cold/flu symptoms DEXTROMETHORPHAN-GUAIFENESIN 82644134932 Active Cherelle Avila SHIRT HEMMER Active OMEGA-3 300 MG ORAL CAPS 4 caps by mouth daily OMEGA-3 FATTY ACIDS 97904382600 Active Mima Erazo SHIRT HEMMER Active FLUVOXAMINE MALEATE 100 MG ORAL TABS Take 1/2 tab at noon FLUVOXAMINE MALEATE 35051712155 No Longer Active Cherelle Avila SHIRT HEMMER Active [facility] LUBRICANT EYE DROPS 0.4-0.3 % OPHTH SOLN POLYETHYL GLYCOL-PROPYL GLYCOL 44641525414 Active Mima Erazo SHIRT HEMMER Active CLONAZEPAM 1 MG TABS 1/2 pill by mouth three times daily CLONAZEPAM 10425362857 Active Alina Castaneda MD PhD Active MIRALAX POWD 17g by mouth daily, for constipation POLYETHYLENE GLYCOL 3350 40063971087 Active Alina Castaneda MD PhD Active HYDROCODONE-ACETAMINOPHEN 5-325 MG TABS 2 tabs by mouth three times daily for pain HYDROCODONE-ACETAMINOPHEN 62598488558 Active Mmia Erazo SHIRT HEMMER Active HUMALOG KWIKPEN 100 UNIT/ML SC SOPN 20 units with breakfast, 10 units with lunch, 10 units with dinner, for diabetes INSULIN LISPRO (HUMAN ) 66566879488 Active Alina Castaneda MD PhD Active LATUDA 120 MG ORAL TABS 1 pill by mouth nightly LURASIDONE HCL 13462581792 Active Alina Castaneda MD PhD Active COLACE 100 MG CAPS 1 pill by mouth twice daily, for constipation DOCUSATE SODIUM 90817659931 Active Alina Castaneda MD PhD Active TRUETEST TEST STRP check blood sugars 3x/day GLUCOSE BLOOD 27330442024 Active Marvel MARROQUIN Active ACCU-CHEK ROSA UZMA Use device to check blood sugars BLOOD GLUCOSE MONITORING SUPPL 31534009374 No Longer Active Marvel MARROQUIN Active ACCU-CHEK ROSA INVITR STRP use strips with device to check blood sugars 3 times daily GLUCOSE BLOOD 34633266000 No Longer Active Marvel MARROQUIN Active VERAPAMIL HCL ER 180 MG ORAL CR-TABS 1 pill by mouth twice daily, for migraine prevention VERAPAMIL HCL 48221593860 Active Alina Castaneda MD PhD Active CYCLOBENZAPRINE HCL 10 MG TABS 1 tablet by mouth three times daily, scheduled CYCLOBENZAPRINE HCL 08458868756 No Longer Active Alina Castaneda MD PhD Active HUMALOG 100 UNIT/ML SOLN Take 20 units with breakfast, 10u with lunch and suppetr. INSULIN LISPRO (HUMAN) 59578292524 No Longer Active Alina Castaneda MD PhD Active TRUETEST TEST STRP check sugars 4x/day GLUCOSE BLOOD 60526024101 No Longer Active Alina Castaneda MD PhD Active MORPHINE SULFATE 30 MG TABS 1 pill by mouth twice daily, for pain MORPHINE SULFATE 90485867368 Active Mima Erazo SHIRT HEMMER Active ACYCLOVIR 400 MG ORAL TABS 1 pill three times daily x 5 days, for cold sore outbreak ACYCLOVIR 90590573377 No Longer Active Alina Castaneda MD PhD Active PENICILLIN V POTASSIUM 500 MG TABS 1 pill by mouth three times daily PENICILLIN V POTASSIUM 52284492620 No Longer Active Alina Castaneda MD PhD Active UROXATRAL 10 MG DB77Y-BLC Take 1 tablet by mouth daily ALFUZOSIN HCL 60163888814 No Longer Active Alina Castaneda MD PhD Active THIOTHIXENE 5 MG CAPS by mouth twice a day THIOTHIXENE 10069418258 No Longer Active Alina Castaneda MD PhD Active ZYPREXA 7.5 MG TABS 1 at HS OLANZAPINE 53057167649 No Longer Active Alina Castaneda MD PhD Active BD INSULIN SYRINGE 28G X 1/2" 1 ML MISC 1 four times per day INSULIN SYRINGE-NEEDLE U-100 05588988816 Active Marvel MARROQUIN Active DETROL LA 4 MG [id number]-LDH Take 1 tablet by mouth daily TOLTERODINE TARTRATE 62026292329 No Longer Active Alina Castaneda MD PhD Active TERESE CONTOUR TEST STRP monitor blood sugars 3x/day GLUCOSE BLOOD 02198093408 No Longer Active Alina Castaneda MD PhD Active EQL TRUETEST TEST STRP Test blood sugar TID GLUCOSE BLOOD 93592865044 No Longer Active Alina Castaneda MD PhD Active FLUTICASONE PROPIONATE 50 MCG/ACT SUSP 2 sprays each nostril qDay x 30 days FLUTICASONE PROPIONATE 17236859701 No Longer Active Alina Castaneda MD PhD Active IBUPROFEN 200 MG TABS 1 Q 6 hr. PRN IBUPROFEN 12491971423 No Longer Active Alina Castaneda MD PhD Active NIACIN ER 500 MG CR-TABS 4 qHS (for triglycerides) NIACIN 86428799136 No Longer Active Alina Castaneda MD PhD Active ALFUZOSIN HCL ER 10 MG EY38P-DIM 1 tablet daily ALFUZOSIN HCL 72641025507 Active Vanessa Hickey MD Active SAPHRIS 5 MG SUBL by mouth twice a day ASENAPINE MALEATE 60188411641 No Longer Active Marvel MARROQUIN Active ACETAMINOPHEN 500 MG TABS 2 Q 6 hr. PRN ACETAMINOPHEN 60981514257 No Longer Active Marvel MARROQUIN Active ORPHENADRINE CITRATE ER 100 MG SD78O-ZZF 1 every 12 hr. as needed ORPHENADRINE CITRATE 27569416920 No Longer Active Alina Castaneda MD PhD Active NIACIN CR 500 MG CR-TABS 2 qHS NIACIN 99637093742 No Longer Active Alina Castaneda MD PhD Active AMOXICILLIN 500 MG CAPS 2 po BID x 10 days AMOXICILLIN 51938035155 No Longer Active Alina Castaneda MD PhD Active HYDROCODONE-ACETAMINOPHEN 7.5-325 MG TABS 1 four times a day as needed for pain HYDROCODONE-ACETAMINOPHEN 47899174058 No Longer Active Alina Castaneda MD PhD Active DOXEPIN HCL 10 MG CAPS Take 1 tablet by mouth daily DOXEPIN HCL 66085330458 No Longer Active Salina Han A Active NAVANE 10 MG CAPS 1/2 tablet twice a day THIOTHIXENE No Longer Active Salina Han A Active CYCLOBENZAPRINE HCL 10 MG TABS 1/2 tablet by mouth every 8 hours as needed for muscle spasms CYCLOBENZAPRINE HCL 89374085952 No Longer Active Alina Castaneda MD PhD Active BACTROBAN 2 % CREAM apply to ear and nose twice daily MUPIROCIN CALCIUM 46062071472 No Longer Active Alina Castaneda MD PhD Active HYDROCODONE-ACETAMINOPHEN 5-325 MG TABS take one tablet by mouth every four hours as needed for pain HYDROCODONE-ACETAMINOPHEN 48502069721 No Longer Active Alina Castaneda MD PhD Active ZOLPIDEM TARTRATE 10 MG TABS take at bedtime ZOLPIDEM TARTRATE 75897060498 Active Alina Castaneda MD PhD Active ZYPREXA 5 MG TABS take one tablet by mouth every evening OLANZAPINE 63192406490 No Longer Active Alina Castaneda MD PhD Active ALBUTEROL SULFATE 0.083 % NEBU SOLN one vial per nebulizer TID and PRN cough/ soa ALBUTEROL SULFATE 08054400001 No Longer Active Alina Castaneda MD PhD Active GUAIFENESIN 600 MG EM48I-JZQ 1 tablet by mouth twice daily if needed for cough GUAIFENESIN 66484118030 No Longer Active Marvel MARROQUIN Active AZITHROMYCIN 500 MG SOLR 1 po q day AZITHROMYCIN 52848208371 No Longer Active Alina Castaneda MD PhD Active PROMETHAZINE-CODEINE 6.25-10 MG/5ML SYRP 1 tsp po q 6 hours prn cough PROMETHAZINE-CODEINE 33009805019 No Longer Active Alina Castaneda MD PhD Active CEFDINIR 300 MG CAPS by mouth twice a day CEFDINIR 05216835237 No Longer Active Alina Castaneda MD PhD Active METFORMIN HCL 500 MG MA71R-SSH Take 3 tablets by mouth everyday METFORMIN HCL 15461409352 No Longer Active Alina Castaneda MD PhD Active LEVEMIR 100 UNIT/ML SOLN 90 units SQ qHS INSULIN DETEMIR 32997202544 No Longer Active Marvel MARROQUIN Active TOPROL XL 100 MG [id number]-KEA 1 @ HS METOPROLOL SUCCINATE 75711118777 No Longer Active Marvel MARROQUIN Active ALLOPURINOL 300 MG TABS Take one by mouth daily ALLOPURINOL 11452917508 Active Alina Castaneda MD PhD Active ZYPREXA 10 MG TABS Take one by mouth daily OLANZAPINE 24932935251 No Longer Active Alina Castaneda MD PhD Active NOVOLOG 100 UNIT/ML SOLN 40 units with every meal INSULIN ASPART 35351825659 No Longer Active Alina Castaneda MD PhD Active VERAPAMIL HCL CR 120 MG TAB CR 1 qPM VERAPAMIL HCL 98162664337 No Longer Active Salina Emely ROJAS Active ZYPREXA 15 MG TABS Take 1 tablet by mouth daily OLANZAPINE 29741643997 No Longer Active Marvel MARROQUIN Active LISINOPRIL 20 MG TABS 1 BID LISINOPRIL 30505889711 Active Alina Castaneda MD PhD Active ALBUTEROL SULFATE (2.5 MG/3ML) 0.083% NEBU 1 neb tid and prn cough ALBUTEROL SULFATE 66245817855 No Longer Active Alina Castaneda MD PhD Active TRAVATAN Z 0.004 % SOLN 1 gtt each eye daily TRAVOPROST 78621105165 Active CRYSTAL Suarez Active LANTUS 100 UNIT/ML SOLN 60 units sq q hs INSULIN GLARGINE 76480160193 No Longer Active CRYSTAL Suarez Active ALBUTEROL SULFATE (2.5 MG/3ML) 0.083% NEBU 1 neb tid and prn cough ALBUTEROL SULFATE (2.5 MG/3ML) 0.083% NEBU 077272 ALBUTEROL SULFATE Inactive ZYPREXA 15 MG TABS Take 1 tablet by mouth daily ZYPREXA 15 MG TABS 794376 OLANZAPINE Inactive VERAPAMIL HCL CR 120 MG TAB CR 1 qPM VERAPAMIL HCL CR 120 MG TAB CR VERAPAMIL HCL Inactive ZYPREXA 10 MG TABS Take one by mouth daily ZYPREXA 10 MG TABS 138649 OLANZAPINE Inactive TOPROL XL 100 MG [id number]-VRF 1 @ HS TOPROL XL 100 MG GJ80F-XRR METOPROLOL SUCCINATE Inactive LEVEMIR 100 UNIT/ML SOLN 90 units SQ qHS LEVEMIR 100 UNIT/ML SOLN INSULIN DETEMIR Inactive PROMETHAZINE-CODEINE 6.25-10 MG/5ML SYRP 1 tsp po q 6 hours prn cough PROMETHAZINE-CODEINE 6.25-10 MG/5ML SYRP 319340 PROMETHAZINE- CODEINE Inactive GUAIFENESIN 600 MG OG77G-LLL 1 tablet by mouth twice daily if needed for cough GUAIFENESIN 600 MG TH61Y-VAS GUAIFENESIN Inactive ALBUTEROL SULFATE 0.083 % NEBU SOLN one vial per nebulizer TID and PRN cough/ soa ALBUTEROL SULFATE 0.083 % NEBU SOLN 890574 ALBUTEROL SULFATE Inactive ZYPREXA 5 MG TABS take one tablet by mouth every evening ZYPREXA 5 MG TABS 625728 OLANZAPINE Inactive HYDROCODONE-ACETAMINOPHEN 5-325 MG TABS take one tablet by mouth every four hours as needed for pain HYDROCODONE-ACETAMINOPHEN 5-325 MG TABS 683267 HYDROCODONE-ACETAMINOPHEN Inactive BACTROBAN 2 % CREAM apply to ear and nose twice daily BACTROBAN 2 % CREAM 851057 MUPIROCIN CALCIUM Inactive CYCLOBENZAPRINE HCL 10 MG TABS 1/2 tablet by mouth every 8 hours as needed for muscle spasms CYCLOBENZAPRINE HCL 10 MG TABS 418771 CYCLOBENZAPRINE HCL Inactive NAVANE 10 MG CAPS 1/2 tablet twice a day NAVANE 10 MG CAPS THIOTHIXENE Inactive DOXEPIN HCL 10 MG CAPS Take 1 tablet by mouth daily DOXEPIN HCL 10 MG CAPS 4971342 DOXEPIN HCL Inactive HYDROCODONE-ACETAMINOPHEN 7.5-325 MG TABS 1 four times a day as needed for pain HYDROCODONE-ACETAMINOPHEN 7.5-325 MG TABS 807023 HYDROCODONE-ACETAMINOPHEN Inactive NIACIN CR 500 MG CR-TABS 2 qHS NIACIN CR 500 MG CR- TABS NIACIN Inactive ORPHENADRINE CITRATE ER 100 MG JA45L-QAM 1 every 12 hr. as needed ORPHENADRINE CITRATE ER 100 MG LE95S-VQE ORPHENADRINE CITRATE Inactive ACETAMINOPHEN 500 MG TABS 2 Q 6 hr. PRN ACETAMINOPHEN 500 MG TABS 453975 ACETAMINOPHEN Inactive SAPHRIS 5 MG SUBL by mouth twice a day SAPHRIS 5 MG SUBL ASENAPINE MALEATE Inactive NIACIN ER 500 MG CR-TABS 4 qHS (for triglycerides) NIACIN ER 500 MG CR-TABS NIACIN Inactive IBUPROFEN 200 MG TABS 1 Q 6 hr. PRN IBUPROFEN 200 MG TABS 016547 IBUPROFEN Inactive FLUTICASONE PROPIONATE 50 MCG/ACT SUSP 2 sprays each nostril qDay x 30 days FLUTICASONE PROPIONATE 50 MCG/ACT SUSP 307506 FLUTICASONE PROPIONATE Inactive EQL TRUETEST TEST STRP Test blood sugar TID EQL TRUETEST TEST STRP GLUCOSE BLOOD Inactive TERESE CONTOUR TEST STRP monitor blood sugars 3x/day TERESE CONTOUR TEST STRP GLUCOSE BLOOD Inactive DETROL LA 4 MG JR10Y-QCD Take 1 tablet by mouth daily DETROL LA 4 MG KK24J-VOT TOLTERODINE TARTRATE Inactive ZYPREXA 7.5 MG TABS 1 at HS ZYPREXA 7.5 MG TABS 339443 OLANZAPINE Inactive THIOTHIXENE 5 MG CAPS by mouth twice a day THIOTHIXENE 5 MG CAPS 811311 THIOTHIXENE Inactive UROXATRAL 10 MG BI62Y-JSL Take 1 tablet by mouth daily UROXATRAL 10 MG OU62R-ZEC ALFUZOSIN HCL Inactive ACYCLOVIR 400 MG ORAL TABS 1 pill three times daily x 5 days, for cold sore outbreak ACYCLOVIR 400 MG ORAL TABS 506871 ACYCLOVIR Inactive TRUETEST TEST STRP check sugars 4x/day TRUETEST TEST STRP GLUCOSE BLOOD Inactive HUMALOG 100 UNIT/ML SOLN Take 20 units with breakfast, 10u with lunch and suppetr. HUMALOG 100 UNIT/ML SOLN INSULIN LISPRO ( HUMAN) Inactive CYCLOBENZAPRINE HCL 10 MG TABS 1 tablet by mouth three times daily, scheduled CYCLOBENZAPRINE HCL 10 MG TABS 950313 CYCLOBENZAPRINE HCL Inactive ACCU-CHEK ROSA INVITR STRP use strips with device to check blood sugars 3 times daily ACCU-CHEK ROSA INVITR STRP GLUCOSE BLOOD Inactive ACCU-CHEK ROSA UZMA Use device to check blood sugars ACCU-CHEK ROSA UZMA BLOOD GLUCOSE MONITORING SUPPL Inactive FLUVOXAMINE MALEATE 100 MG ORAL TABS Take 1/2 tab at noon FLUVOXAMINE MALEATE 100 MG ORAL TABS 633660 FLUVOXAMINE MALEATE Inactive FLUVOXAMINE MALEATE 100 MG TABS Take one (1) tablet by mouth am, 1/2 at noon FLUVOXAMINE MALEATE 100 MG TABS 619540 FLUVOXAMINE MALEATE Inactive BACTROBAN 2 % CREAM Apply to affected area BID for up to 10 days BACTROBAN 2 % CREAM 904603 MUPIROCIN CALCIUM Inactive NOVOFINE 32G X 6 MM MISC use one four times per day NOVOFINE 32G X 6 MM MISC INSULIN PEN NEEDLE Inactive TRAZODONE HCL 100 MG ORAL TABS 1 tab by mouth for sleep TRAZODONE HCL 100 MG ORAL TABS 289362 TRAZODONE HCL Inactive LOVAZA 1 GM CAPS 4 daily (for triglycerides) LOVAZA 1 GM CAPS 603814 PAJWR-[id number] ETHYL ESTERS Inactive METFORMIN HCL ER 500 MG IN18X-ESD Take three tablets by mouth everyday METFORMIN HCL ER 500 MG ER92H-CHA METFORMIN HCL Inactive METOPROLOL SUCCINATE 100 MG PD45R-USA 1 by mouth daily for blood pressure METOPROLOL SUCCINATE 100 MG KW62A-SNE METOPROLOL SUCCINATE Inactive AMITIZA 24 MCG ORAL CAPS Take one capsule BID for constipation. AMITIZA 24 MCG ORAL CAPS LUBIPROSTONE Inactive TOLTERODINE TARTRATE 2 MG TABS 1 pill twice daily, for bladder TOLTERODINE TARTRATE 2 MG TABS 863737 TOLTERODINE TARTRATE Inactive CEFDINIR 300 MG CAPS by mouth twice a day CEFDINIR 300 MG CAPS 746740 CEFDINIR Inactive AZITHROMYCIN 500 MG SOLR 1 po q day AZITHROMYCIN 500 MG SOLR 78857015400 AZITHROMYCIN Inactive AMOXICILLIN 500 MG CAPS 2 po BID x 10 days AMOXICILLIN 500 MG CAPS 343259 AMOXICILLIN Inactive PENICILLIN V POTASSIUM 500 MG TABS 1 pill by mouth three times daily PENICILLIN V POTASSIUM 500 MG TABS 269886 PENICILLIN V POTASSIUM Inactive KEFLEX 500 MG CAP 1 po BID x 7 days KEFLEX 500 MG CAP 661757 CEPHALEXIN Inactive Immunizations Vaccine Administration Date Value [...] Fluvirin, Fluarix, Agriflu(>=18 yo)) Fluzone (>3 yrs.) [[id number]] Influenza, seasonal, injectable pneumococcal immunization administered Pneumovax [...] MICROALBUMIN - Chemistry sodium, serum 137 mmol/L 789-044 1868/05/19 potassium, serum 5.2 mmol/L 3.5-5.2 chloride, serum [...] Panel - Chemistry sodium, serum 137 mmol/L 649-371 1924/10/12 potassium, serum 4.8 mmol/L 3.5-5.2 chloride, serum 102 mmol/L 98-107 carbon dioxide, venous blood 27.6 mmol/L 21.0-32.0 blood glucose 168 mg/dL 65-110 calcium, serum 9.0 mg/dL 8.5-10.1 urea nitrogen, blood 15 mg/dL 7-18 creatinine, serum 1.04 mg/dL 0.55-1.30 sodium, serum 138 mmol/L 463-590 2419/11/11 potassium, serum 4.7 mmol/L 3.5-5.2 chloride, serum [...] % 11.6-14.8 platelet count 252 10^3/MM^3 10*3/mm3 984-110 5374/10/12 leukocyte count, blood 5.8 10^3/MM^3 10*3/mm3 4.6-10.2 [...] 240 10^3/MM^3 10*3/mm3 142-424 Lab Report: Chlamydia/GC APTIMA/76791, HIV-1/2 Agn/Dominga/21633, RPR (DX) W ... - Chemistry hepatitis B surface antigen NON-REACTIVE NON-REACTIVE Lab Report: Chlamydia/GC APTIMA/27805, HIV-1/2 Agn/Dominga/00712, RPR (DX) W ... - Lab chlamydia DNA probe NOT DETECTED NOT DETECTED Lab Report: Chlamydia/GC APTIMA/58567, HIV-1/2 Agn/Dominga/29416, RPR (DX) W ... - Microbiology Neisseria gonorrhoeae DNA probe NOT DETECTED NOT DETECTED Lab Report: Chlamydia/GC APTIMA/00513, HIV-1/2 Agn/Dominga/54516, RPR (DX) W ... - Serology rapid plasma reagin antibody titer NON-REACTIVE NON-REACTIVE Lab Report: HGBA1C - Chemistry hemoglobin A1C, blood, as % of total hemoglobin 6.1 % 4.3-6.0 hemoglobin A1C, blood, as % of total hemoglobin 6.3 % 4.3-6.0 Lab Report: Lipid Panel, HEPATIC PANEL, MICROALBUMIN, CBC - Chemistry cholesterol, serum 131 mg/dL 653-058 9419/06/03 triglyceride, serum, fasting 383 mg/dL 30-200 HDL [...] 4.7 mg/dL 2.6-7.2 cholesterol, serum 142 mg/dL 888-472 5619/06/26 triglyceride, serum, fasting 272 mg/dL 30-200 HDL [...] negative Encounters Code Encounter Date Provider Facility CPT-30452 Level 3 Est. Patient 14:39:00 CREW SCHEDULER Vanessa Hickey MD [facility]-04824 Level 2 Est. Patient 18:43:34 CDT Mima Erazo [facility]-93866 Level 3 Est. Patient 16:22:09 CDT Cherelle Avila [facility]-78282 Level 4 Est. Patient 17:55:14 CDT Mima Erazo [facility]-53472 Level 2 Est. Patient 17:13:21 CDT Alina Castaneda MD [facility]52362 Level 3 Est. Patient 14:46:15 CDT Vanessa Hickey MD [facility]-95120 Level 3 Est. Patient 09:34:56 CDT Alina Castaneda MD [facility]-72592 Level 3 Est. Patient 21:40:19 CDT Mima Erazo [facility][note 3] CPT-40641 Level 3 Est. Patient 09:26:40 CDT Marvel Charles [facility]-83101 Level 3 Est. Patient 12:36:43 CDT Vanessa Hickey MD [facility]-10307 Level 3 Est. Patient 12:57:49 CDT Vanessa Hickey MD [facility]-32261 Level 3 Est. Patient 00:28:25 CDT Alina Castaneda MD [facility]60351 Level 2 Est. Patient 12:52:14 CDT Alina Castaneda MD [facility]39896 Level 3 Est. Patient 11:51:18 CREW SCHEDULER Alina Castaneda MD [facility]61322 Level 3 Est. Patient 10:09:22 CREW SCHEDULER Alina Castaneda MD PhD [facility] CPT-74286 Level 3 Est. Patient 14:36:26 CREW SCHEDULER Marvel Araceli [facility]-97505 Level 3 Est. Patient 13:34:47 CREW SCHEDULER Alina Castaneda MD [facility]-52251 Level 3 Est. Patient 19:52:08 CREW SCHEDULER Alina Castaneda MD [facility]62950 Level 3 Est. Patient 10:01:51 CREW SCHEDULER Marvel Gurdeepanca [facility]-46537 Level 3 Est. Patient 21:54:06 CDT Vanessa Hickey MD [facility]-64025 Level 3 Est. Patient 08:54:46 CDT Alina Castaneda MD [facility]30849 Level 3 Est. Patient 09:32:11 CDT Marvel Araceli [facility]-59461 Level 3 Est. Patient 12:02:49 CDT Alina Castaneda MD [facility]21792 Level 3 Est. Patient 19:17:33 CDT Alina Castaneda MD [facility]19243 Level 3 Est. Patient 13:19:10 CDT Brooksjohn Charles [facility]-88010 Level 3 Est. Patient 08:20:05 CDT Alina Castaneda MD [facility]65362 Level 3 Est. Patient 15:17:18 CDT Alina Castaneda MD [facility]02564 Level 3 Est. Patient 14:25:36 CREW SCHEDULER Marvel Araceli [facility]-39663 Level 3 Est. Patient 10:09:15 CREW SCHEDULER Marvel Araceli [facility]-63779 Level 3 Est. Patient 21:28:43 CDT Alina Castaneda MD [facility]-98614 Level 3 Est. Patient 15:20:11 [facility]-49378 Level 4 Est. Patient 19:08:12 CDT Alina Castaneda MD [facility]-27339 Level 3 Est. Patient 15:06:39 CDT Marvel Charles [facility] CPT-92747 Level 4 Est. Patient 17:48:15 CDT Alina Castaenda MD [facility]-59095 Level 3 Est. Patient 14:53:49 CDT Alina Castaneda MD [facility]-35540 Level 3 Est. Patient 09:35:16 CDT Alina Castaneda MD [facility]-68346 Level 3 Est. Patient 12:23:22 CDT Alina Castaneda MD [facility]-14977 Level 3 Est. Patient 16:19:15 CDT Alina Castaneda MD [facility]-32498 Level 3 Est. Patient 21:39:56 CREW SCHEDULER Alina Castaneda MD [facility]-21428 Level 4 Est. Patient 14:12:56 CREW SCHEDULER Alina Castaneda MD [facility]-09069 Level 2 Est. Patient 15:34:57 CREW SCHEDULER Alina Castaneda MD [facility]-98816 Level 3 Est. Patient 12:17:04 CREW SCHEDULER Alina Castaneda MD [facility]-18396 Level 3 Est. Patient 09:18:18 CREW SCHEDULER Marvel Charles [facility]-80553 Level 2 Est. Patient 21:50:24 CDT Alina Castaneda MD [facility]-22835 Level 3 Est. Patient 09:17:28 CDT Marvel Charles [facility]-20739 Level 4 Est. Patient 18:54:02 CDT Alina Castaneda MD [facility]-37549 Level 3 Est. Patient 10:47:10 CDT Alina Castaneda MD [facility]-38192 Level 3 Est. Patient 09:22:20 CDT Marvel Charles [facility]-61688 Level 3 Est. Patient 16:39:43 CDT Marvel Charles [facility]-51214 Level 3 Est. Patient 16:05:16 CDT Alina Castaneda MD [facility]-97587 Level 3 Est. Patient 00:29:15 CDT Alina Castaneda MD [facility]-44410 Level 3 Est. Patient 10:49:22 CREW SCHEDULER [facility]-27738 Level 3 Est. Patient 21:30:19 CREW SCHEDULER Alina Castaneda MD [facility]-52454 Level 4 Est. Patient 17:04:11 CREW SCHEDULER [facility]-72325 Level 3 Est. Patient 15:34:11 CREW SCHEDULER [facility]-85065 Level 2 Est. Patient 12:51:58 CREW SCHEDULER Alina Castaneda MD [facility]-19119 Level 3 Est. Patient 13:20:01 CREW SCHEDULER Alina Castaneda MD [facility]-66790 Level 3 Est. 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 SCHEDULER CPT-TCMM Transitional Care Mgmt-Moderate 10:30:19 CREW SCHEDULER CPT-56467 Bladder Scan 12:36:44 CDT CPT-77224 Bladder Scan 21:54:06 CDT CPT-G0008 Administration of Influenza Virus Vaccine 13:05:26 CDT CPT-53877 Fluzone Quadrivalent Intramuscular Suspension 0.5 ML 13: 05:26 CDT CPT-86148 Administration single or combination vaccine inc oral 11 :49:51 CDT CPT-70802 Pneumovax 11:49:51 CDT CPT-74554 Ribs unilateral 2V 12:37:22 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
--- OUTSIDE RECORDS SUMMARY | 2018-07-02 18:31 | XMS REPORT | Clinical Summary ---
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 Erazo [employer]ERON[employer] COMMISSION DIRECTOR Benign paroxysmal positional vertigo Vertigo, benign paroxysmal position 386.11 Inactive Mima Erazo [employer] COMMISSION DIRECTOR Benign paroxysmal positional vertigo High-risk sexual behavior V69.2 Active Alina Castaneda MD PhD High-risk sexual behavior Erectile dysfunction 302.72 Active Alina Castaneda MD PhD Psychosexual dysfunction with inhibited sexual excitement Constipation 564.00 Active Alina Castaneda MD PhD Constipation, unspecified Skin lesion 709.9 Active Alina Castaneda MD PhD Unspecified disorder of skin and subcutaneous tissue Malaise and fatigue 780.79 Active Cherelle Speaks [employer] COMMISSION DIRECTOR Other malaise and fatigue Diarrhea 787.91 Active Cherelle Speaks AERONAUTICS COMMISSION DIRECTOR Diarrhea PHARYNGITIS 462 Active Cherelle Speaks AERONAUTICS COMMISSION DIRECTOR Acute pharyngitis Colitis 558.9 Active Mima Erazo [employer] COMMISSION DIRECTOR Other and unspecified noninfectious gastroenteritis and colitis WOUND, OPEN, NOSE ICD-873.20 Inactive Alina Castaneda MD PhD DIABETES, TYPE 2 ICD-250.00 Inactive Alina Castaneda MD PhD HYPERTENSION ICD-401.9 Inactive Alina Catsaneda MD PhD URI ICD-465.9 Inactive Alina Castaneda MD PhD CHEST PAIN ICD-786.50 Inactive Alina Castaneda MD PhD FH STROKE ICD-V17.1 Inactive Marvel Charles SUPERVISOR SHIPPING FATIGUE ICD-780.79 Inactive Alina Castaneda MD PhD [...] LANCETS 30G MISC 3 a day LANCETS 64722415769 Active Marvel MARROQUIN Active TOLTERODINE TARTRATE 2 MG TABS 1 pill twice daily, for bladder TOLTERODINE TARTRATE 12133509833 No Longer Active Vanessa Hickey MD Active AMITIZA 24 MCG ORAL CAPS Take one capsule BID for constipation. LUBIPROSTONE 12405142564 No Longer Active Vanessa Hickey MD Active LOMOTIL 2.5-0.025 MG ORAL TABS take 1-2 tabs PO after each stool, no more than 8 in 24 hours DIPHENOXYLATE-ATROPINE 32014436940 Active Grace ROJAS Active FLUVOXAMINE MALEATE 100 MG ORAL TABS take one tab every AM et HS, and take 1/ 2 tab at noon FLUVOXAMINE MALEATE 18359315270 Active Grace ROJAS Active METOPROLOL SUCCINATE 100 MG [id number] 1 by mouth daily for blood pressure METOPROLOL SUCCINATE 49531505153 No Longer Active Grace ROJAS Active METFORMIN HCL ER 500 MG OS64M-FQQ Take three tablets by mouth everyday METFORMIN HCL 01659861388 No Longer Active Grace Azam RMA Active LOVAZA 1 GM CAPS 4 daily (for triglycerides) OMEGA-3- ACID ETHYL ESTERS 95762199850 No Longer Active Grace Azam RMA Active TRAZODONE HCL 100 MG ORAL TABS 1 tab by mouth for sleep TRAZODONE HCL 54604210229 No Longer Active Grace Azam RMA Active NOVOFINE 32G X 6 MM MISC use one four times per day INSULIN PEN NEEDLE 52247799335 No Longer Active Grace Azam RMA Active BACTROBAN 2 % CREAM Apply to affected area BID for up to 10 days MUPIROCIN CALCIUM 45040610654 No Longer Active Grace Azam RMA Active ZOFRAN 4 MG TABS 1 po q4hr PRN [place]ause[place] ONDANSETRON HCL 73113368292 Active Salina Emely RMA Active KEFLEX 500 MG CAP 1 po BID x 7 days CEPHALEXIN 73563272296 No Longer Active Cherelle Felixs AERONAUTICS COMMISSION DIRECTOR Active FLUVOXAMINE MALEATE 100 MG TABS Take one (1) tablet by mouth am, 1/2 at noon FLUVOXAMINE MALEATE 79916053398 No Longer Active Mima Erazo APRN Active CORICIDIN HBP CONGESTION/COUGH 10-200 MG ORAL CAPS Take as directed on box as needed for cold/flu symptoms DEXTROMETHORPHAN-GUAIFENESIN 28874872974 Active Cherelle Speaks AERONAUTICS COMMISSION DIRECTOR Active OMEGA-3 300 MG ORAL CAPS 4 caps by mouth daily OMEGA-3 FATTY ACIDS 21155035360 Active Cherelle Speaks AERONAUTICS COMMISSION DIRECTOR Active FLUVOXAMINE MALEATE 100 MG ORAL TABS Take 1/2 tab at noon FLUVOXAMINE MALEATE 32375416316 No Longer Active Cherelle Speaks AERONAUTICS COMMISSION DIRECTOR Active [facility] LUBRICANT EYE DROPS 0.4-0.3 % OPHTH SOLN POLYETHYL GLYCOL-PROPYL GLYCOL 69593963107 Active Mima Yokum AERONAUTICS COMMISSION DIRECTOR Active CLONAZEPAM 1 MG TABS 1/2 pill by mouth three times daily CLONAZEPAM 05152855466 Active Alina Castaneda MD PhD Active MIRALAX POWD 17g by mouth daily, for constipation POLYETHYLENE GLYCOL 3350 61703193426 Active Alina Castaneda MD PhD Active HYDROCODONE-ACETAMINOPHEN 5-325 MG TABS 2 tabs by mouth three times daily for pain HYDROCODONE-ACETAMINOPHEN 51631252629 Active Mima Erazo AERONAUTICS COMMISSION DIRECTOR Active HUMALOG KWIKPEN 100 UNIT/ML SC SOPN 20 units with breakfast, 10 units with lunch, 10 units with dinner, for diabetes INSULIN LISPRO (HUMAN ) 25439857924 Active Alina Castaneda MD PhD Active LEVEMIR FLEXTOUCH 100 UNIT/ML SC SOPN 70 units SQ each evening, for diabetes INSULIN DETEMIR 50956715829 Active Alina Castaneda MD PhD Active LATUDA 120 MG ORAL TABS 1 pill by mouth nightly LURASIDONE HCL 47639859696 Active Alina Castaneda MD PhD Active COLACE 100 MG CAPS 1 pill by mouth twice daily, for constipation DOCUSATE SODIUM 88848661559 Active Alina Castaneda MD PhD Active TRUETEST TEST STRP check blood sugars 3x/day GLUCOSE BLOOD 72838663072 Active Marvel MARROQUIN Active ACCU-CHEK ROSA UZMA Use device to check blood sugars BLOOD GLUCOSE MONITORING SUPPL 78949654607 No Longer Active Marvel MARROQUIN Active ACCU-CHEK ROSA INVITR STRP use strips with device to check blood sugars 3 times daily GLUCOSE BLOOD 59209213585 No Longer Active Marvel MARROQUIN Active VERAPAMIL HCL ER 180 MG ORAL CR-TABS 1 pill by mouth twice daily, for migraine prevention VERAPAMIL HCL 94609266648 Active Alina Castaneda MD PhD Active CYCLOBENZAPRINE HCL 10 MG TABS 1 tablet by mouth three times daily, scheduled CYCLOBENZAPRINE HCL 26586748618 No Longer Active Alina Castaneda MD PhD Active HUMALOG 100 UNIT/ML SOLN Take 20 units with breakfast, 10u with lunch and suppetr. INSULIN LISPRO (HUMAN) 76795882926 No Longer Active Alina Castaneda MD PhD Active TRUETEST TEST STRP check sugars 4x/day GLUCOSE BLOOD 67367328596 No Longer Active Alina Castaneda MD PhD Active MORPHINE SULFATE 30 MG TABS 1 pill by mouth twice daily, for pain MORPHINE SULFATE 05550870983 Active Mima Erazo AERONAUTICS COMMISSION DIRECTOR Active ACYCLOVIR 400 MG ORAL TABS 1 pill three times daily x 5 days, for cold sore outbreak ACYCLOVIR 67174574737 No Longer Active Alina Castaneda MD PhD Active PENICILLIN V POTASSIUM 500 MG TABS 1 pill by mouth three times daily PENICILLIN V POTASSIUM 30478881854 No Longer Active Alina Castaneda MD PhD Active UROXATRAL 10 MG [id number] Take 1 tablet by mouth daily ALFUZOSIN HCL 89641401108 No Longer Active Alina Castaneda MD PhD Active THIOTHIXENE 5 MG CAPS by mouth twice a day THIOTHIXENE 11749166292 No Longer Active Alina Castaneda MD PhD Active ZYPREXA 7.5 MG TABS 1 at HS OLANZAPINE 01119478451 No Longer Active Alina Castaneda MD PhD Active BD INSULIN SYRINGE 28G X 1/2" 1 ML MISC 1 four times per day INSULIN SYRINGE-NEEDLE U-100 92581001855 Active [facility] Gurdeepglestela [facility] Active DETROL LA 4 MG [id number]-ZHH Take 1 tablet by mouth daily TOLTERODINE TARTRATE 30735670880 No Longer Active Alina Castaneda MD PhD Active TERESE CONTOUR TEST STRP monitor blood sugars 3x/day GLUCOSE BLOOD 69492798126 No Longer Active Alina Castaneda MD PhD Active EQL TRUETEST TEST STRP Test blood sugar TID GLUCOSE BLOOD 51263500203 No Longer Active Alina Castaneda MD PhD Active FLUTICASONE PROPIONATE 50 MCG/ACT SUSP 2 sprays each nostril qDay x 30 days FLUTICASONE PROPIONATE 24394425978 No Longer Active Alina Castaneda MD PhD Active IBUPROFEN 200 MG TABS 1 Q 6 hr. PRN IBUPROFEN 99534603428 No Longer Active Alina Castaneda MD PhD Active NIACIN ER 500 MG CR-TABS 4 qHS (for triglycerides) NIACIN 71683740960 No Longer Active Alina Castaneda MD PhD Active ALFUZOSIN HCL ER 10 MG [id number]-[id number] 1 tablet daily ALFUZOSIN HCL 59820712956 Active Vanessa Hickey MD Active SAPHRIS 5 MG SUBL by mouth twice a day ASENAPINE MALEATE 81142458477 No Longer Active Mallashondaeh Ziglari SUPERVISOR SHIPPING Active ACETAMINOPHEN 500 MG TABS 2 Q 6 hr. PRN ACETAMINOPHEN 03176556956 No Longer Active Maliheh Ziglari SUPERVISOR SHIPPING Active ORPHENADRINE CITRATE ER 100 MG [id number] 1 every 12 hr. as needed ORPHENADRINE CITRATE 96863071372 No Longer Active Alina Castaneda MD PhD Active NIACIN CR 500 MG CR-TABS 2 qHS NIACIN 28782648642 No Longer Active Alina Castaneda MD PhD Active AMOXICILLIN 500 MG CAPS 2 po BID x 10 days AMOXICILLIN 30635071002 No Longer Active Alina Castaneda MD PhD Active HYDROCODONE-ACETAMINOPHEN 7.5-325 MG TABS 1 four times a day as needed for pain HYDROCODONE-ACETAMINOPHEN 74807136698 No Longer Active Alina Castaneda MD PhD Active DOXEPIN HCL 10 MG CAPS Take 1 tablet by mouth daily DOXEPIN HCL 90664828430 No Longer Active Salina ROJAS Active NAVANE 10 MG CAPS 1/2 tablet twice a day THIOTHIXENE No Longer Active Salina ROJAS Active CYCLOBENZAPRINE HCL 10 MG TABS 1/2 tablet by mouth every 8 hours as needed for muscle spasms CYCLOBENZAPRINE HCL 73222460272 No Longer Active Alina Castaneda MD PhD Active BACTROBAN 2 % CREAM apply to ear and nose twice daily MUPIROCIN CALCIUM 92816195287 No Longer Active Alina Castaneda MD PhD Active HYDROCODONE-ACETAMINOPHEN 5-325 MG TABS take one tablet by mouth every four hours as needed for pain HYDROCODONE-ACETAMINOPHEN 20233266557 No Longer Active Alina Castaneda MD PhD Active ZOLPIDEM TARTRATE 10 MG TABS take at bedtime ZOLPIDEM TARTRATE 77645084718 Active Alina Castaneda MD PhD Active ZYPREXA 5 MG TABS take one tablet by mouth every evening OLANZAPINE 64191001003 No Longer Active Alina Castaneda MD PhD Active ALBUTEROL SULFATE 0.083 % NEBU SOLN one vial per nebulizer TID and PRN cough/ soa ALBUTEROL SULFATE 28057129099 No Longer Active Alina Castaneda MD PhD Active GUAIFENESIN 600 MG [id number]-QUR 1 tablet by mouth twice daily if needed for cough GUAIFENESIN 83913187250 No Longer Active Marvel MARROQUIN Active AZITHROMYCIN 500 MG SOLR 1 po q day AZITHROMYCIN 83358262430 No Longer Active Alina Castaneda MD PhD Active PROMETHAZINE-CODEINE 6.25-10 MG/5ML SYRP 1 tsp po q 6 hours prn cough PROMETHAZINE-CODEINE 20689926175 No Longer Active Alina Castaneda MD PhD Active CEFDINIR 300 MG CAPS by mouth twice a day CEFDINIR 58308022010 No Longer Active Alina Castaneda MD PhD Active METFORMIN HCL 500 MG [id number]-[id number] Take 3 tablets by mouth everyday METFORMIN HCL 37580513395 No Longer Active Alina Castaneda MD PhD Active LEVEMIR 100 UNIT/ML SOLN 90 units SQ qHS INSULIN DETEMIR 22632542100 No Longer Active Marvel MARROQUIN Active TOPROL XL 100 MG FO64O-HXV 1 @ HS METOPROLOL SUCCINATE 01829211938 No Longer Active Marvel MARROQUIN Active ALLOPURINOL 300 MG TABS Take one by mouth daily ALLOPURINOL 35439667949 Active Alina Castaneda MD PhD Active ZYPREXA 10 MG TABS Take one by mouth daily OLANZAPINE 10311601581 No Longer Active Alina Castaneda MD PhD Active NOVOLOG 100 UNIT/ML SOLN 40 units with every meal INSULIN ASPART 26520696392 No Longer Active Alina Castaneda MD PhD Active VERAPAMIL HCL CR 120 MG TAB CR 1 qPM VERAPAMIL HCL 90652068146 No Longer Active Salina ROJAS Active ZYPREXA 15 MG TABS Take 1 tablet by mouth daily OLANZAPINE 17696893295 No Longer Active Marvel MARROQUIN Active LISINOPRIL 20 MG TABS 1 BID LISINOPRIL 88277613883 Active Alina Castaneda MD PhD Active ALBUTEROL SULFATE (2.5 MG/3ML) 0.083% NEBU 1 neb tid and prn cough ALBUTEROL SULFATE 03344113350 No Longer Active Alina Castaneda MD PhD Active TRAVATAN Z 0.004 % SOLN 1 gtt each eye daily TRAVOPROST 64465266789 Active CRYSTAL Suarez Active LANTUS 100 UNIT/ML SOLN 60 units sq q hs INSULIN GLARGINE 25617911246 No Longer Active CRYSTAL Suarez Active ALBUTEROL SULFATE (2.5 MG/3ML) 0.083% NEBU 1 neb tid and prn cough ALBUTEROL SULFATE (2.5 MG/3ML) 0.083% NEBU 235476 ALBUTEROL SULFATE Inactive ZYPREXA 15 MG TABS Take 1 tablet by mouth daily ZYPREXA 15 MG TABS 685895 OLANZAPINE Inactive VERAPAMIL HCL CR 120 MG TAB CR 1 qPM VERAPAMIL HCL CR 120 MG TAB CR VERAPAMIL HCL Inactive ZYPREXA 10 MG TABS Take one by mouth daily ZYPREXA 10 MG TABS 948023 OLANZAPINE Inactive TOPROL XL 100 MG [id number] 1 @ HS TOPROL XL 100 MG [id number]-PZD METOPROLOL SUCCINATE Inactive LEVEMIR 100 UNIT/ML SOLN 90 units SQ qHS LEVEMIR 100 UNIT/ML SOLN INSULIN DETEMIR Inactive PROMETHAZINE-CODEINE 6.25-10 MG/5ML SYRP 1 tsp po q 6 hours prn cough PROMETHAZINE-CODEINE 6.25-10 MG/5ML SYRP 158178 PROMETHAZINE- CODEINE Inactive GUAIFENESIN 600 MG [id number] 1 tablet by mouth twice daily if needed for cough GUAIFENESIN 600 MG LV32K-MYE GUAIFENESIN Inactive ALBUTEROL SULFATE 0.083 % NEBU SOLN one vial per nebulizer TID and PRN cough/ soa ALBUTEROL SULFATE 0.083 % NEBU SOLN 541730 ALBUTEROL SULFATE Inactive ZYPREXA 5 MG TABS take one tablet by mouth every evening ZYPREXA 5 MG TABS 643169 OLANZAPINE Inactive HYDROCODONE-ACETAMINOPHEN 5-325 MG TABS take one tablet by mouth every four hours as needed for pain HYDROCODONE-ACETAMINOPHEN 5-325 MG TABS 016329 HYDROCODONE-ACETAMINOPHEN Inactive BACTROBAN 2 % CREAM apply to ear and nose twice daily BACTROBAN 2 % CREAM 099211 MUPIROCIN CALCIUM Inactive CYCLOBENZAPRINE HCL 10 MG TABS 1/2 tablet by mouth every 8 hours as needed for muscle spasms CYCLOBENZAPRINE HCL 10 MG TABS 177568 CYCLOBENZAPRINE HCL Inactive NAVANE 10 MG CAPS 1/2 tablet twice a day NAVANE 10 MG CAPS THIOTHIXENE Inactive DOXEPIN HCL 10 MG CAPS Take 1 tablet by mouth daily DOXEPIN HCL 10 MG CAPS 1629402 DOXEPIN HCL Inactive HYDROCODONE-ACETAMINOPHEN 7.5-325 MG TABS 1 four times a day as needed for pain HYDROCODONE-ACETAMINOPHEN 7.5-325 MG TABS 504231 HYDROCODONE-ACETAMINOPHEN Inactive NIACIN CR 500 MG CR-TABS 2 qHS NIACIN CR 500 MG CR- TABS NIACIN Inactive ORPHENADRINE CITRATE ER 100 MG [id number] 1 every 12 hr. as needed ORPHENADRINE CITRATE ER 100 MG [id number]-MGP ORPHENADRINE CITRATE Inactive ACETAMINOPHEN 500 MG TABS 2 Q 6 hr. PRN ACETAMINOPHEN 500 MG TABS 962855 ACETAMINOPHEN Inactive SAPHRIS 5 MG SUBL by mouth twice a day SAPHRIS 5 MG SUBL ASENAPINE MALEATE Inactive NIACIN ER 500 MG CR-TABS 4 qHS (for triglycerides) NIACIN ER 500 MG CR-TABS NIACIN Inactive IBUPROFEN 200 MG TABS 1 Q 6 hr. PRN IBUPROFEN 200 MG TABS 165550 IBUPROFEN Inactive FLUTICASONE PROPIONATE 50 MCG/ACT SUSP 2 sprays each nostril qDay x 30 days FLUTICASONE PROPIONATE 50 MCG/ACT SUSP 889759 FLUTICASONE PROPIONATE Inactive EQL TRUETEST TEST STRP Test blood sugar TID EQL TRUETEST TEST STRP GLUCOSE BLOOD Inactive TERESE CONTOUR TEST STRP monitor blood sugars 3x/day TERESE CONTOUR TEST STRP GLUCOSE BLOOD Inactive DETROL LA 4 MG [id number]-YUV Take 1 tablet by mouth daily DETROL LA 4 MG [id number] TOLTERODINE TARTRATE Inactive ZYPREXA 7.5 MG TABS 1 at HS ZYPREXA 7.5 MG TABS 183060 OLANZAPINE Inactive THIOTHIXENE 5 MG CAPS by mouth twice a day THIOTHIXENE 5 MG CAPS 656684 THIOTHIXENE Inactive UROXATRAL 10 MG TL10K-HNE Take 1 tablet by mouth daily UROXATRAL 10 MG NS51K-NGR ALFUZOSIN HCL Inactive ACYCLOVIR 400 MG ORAL TABS 1 pill three times daily x 5 days, for cold sore outbreak ACYCLOVIR 400 MG ORAL TABS 266279 ACYCLOVIR Inactive TRUETEST TEST STRP check sugars 4x/day TRUETEST TEST STRP GLUCOSE BLOOD Inactive HUMALOG 100 UNIT/ML SOLN Take 20 units with breakfast, 10u with lunch and suppetr. HUMALOG 100 UNIT/ML SOLN INSULIN LISPRO ( HUMAN) Inactive CYCLOBENZAPRINE HCL 10 MG TABS 1 tablet by mouth three times daily, scheduled CYCLOBENZAPRINE HCL 10 MG TABS 420970 CYCLOBENZAPRINE HCL Inactive ACCU-CHEK ROSA INVITR STRP use strips with device to check blood sugars 3 times daily ACCU-CHEK ROSA INVITR STRP GLUCOSE BLOOD Inactive ACCU-CHEK ROSA UZMA Use device to check blood sugars ACCU-CHEK ROSA UZMA BLOOD GLUCOSE MONITORING SUPPL Inactive FLUVOXAMINE MALEATE 100 MG ORAL TABS Take 1/2 tab at noon FLUVOXAMINE MALEATE 100 MG ORAL TABS 883659 FLUVOXAMINE MALEATE Inactive FLUVOXAMINE MALEATE 100 MG TABS Take one (1) tablet by mouth am, 1/2 at noon FLUVOXAMINE MALEATE 100 MG TABS 067330 FLUVOXAMINE MALEATE Inactive BACTROBAN 2 % CREAM Apply to affected area BID for up to 10 days BACTROBAN 2 % CREAM 649638 MUPIROCIN CALCIUM Inactive NOVOFINE 32G X 6 MM MISC use one four times per day NOVOFINE 32G X 6 MM MISC INSULIN PEN NEEDLE Inactive TRAZODONE HCL 100 MG ORAL TABS 1 tab by mouth for sleep TRAZODONE HCL 100 MG ORAL TABS 047321 TRAZODONE HCL Inactive LOVAZA 1 GM CAPS 4 daily (for triglycerides) LOVAZA 1 GM CAPS 397429 ESGPN-1-BSZK ETHYL ESTERS Inactive METFORMIN HCL ER 500 MG GN93P-RHK Take three tablets by mouth everyday METFORMIN HCL ER 500 MG SR45X-JJE METFORMIN HCL Inactive METOPROLOL SUCCINATE 100 MG EC66Y-KZZ 1 by mouth daily for blood pressure METOPROLOL SUCCINATE 100 MG SE05W-WMX METOPROLOL SUCCINATE Inactive AMITIZA 24 MCG ORAL CAPS Take one capsule BID for constipation. AMITIZA 24 MCG ORAL CAPS LUBIPROSTONE Inactive TOLTERODINE TARTRATE 2 MG TABS 1 pill twice daily, for bladder TOLTERODINE TARTRATE 2 MG TABS 658175 TOLTERODINE TARTRATE Inactive CEFDINIR 300 MG CAPS by mouth twice a day CEFDINIR 300 MG CAPS 802505 CEFDINIR Inactive AZITHROMYCIN 500 MG SOLR 1 po q day AZITHROMYCIN 500 MG SOLR 86349583126 AZITHROMYCIN Inactive AMOXICILLIN 500 MG CAPS 2 po BID x 10 days AMOXICILLIN 500 MG CAPS 660501 AMOXICILLIN Inactive PENICILLIN V POTASSIUM 500 MG TABS 1 pill by mouth three times daily PENICILLIN V POTASSIUM 500 MG TABS 554355 PENICILLIN V POTASSIUM Inactive KEFLEX 500 MG CAP 1 po BID x 7 days KEFLEX 500 MG CAP 083905 CEPHALEXIN Inactive Immunizations Vaccine Administration Date Value [...] Fluvirin, Fluarix, Agriflu(>=18 yo)) Fluzone (>3 yrs.) [[id number]] Influenza, seasonal, injectable pneumococcal immunization administered Pneumovax [...] MICROALBUMIN - Chemistry sodium, serum 137 mmol/L 603-307 0795/05/19 potassium, serum 5.2 mmol/L 3.5-5.2 chloride, serum [...] Panel - Chemistry sodium, serum 137 mmol/L 940-204 0880/10/12 potassium, serum 4.8 mmol/L 3.5-5.2 chloride, serum 102 mmol/L 98-107 carbon dioxide, venous blood 27.6 mmol/L 21.0-32.0 blood glucose 168 mg/dL 65-110 calcium, serum 9.0 mg/dL 8.5-10.1 urea nitrogen, blood 15 mg/dL 7-18 creatinine, serum 1.04 mg/dL 0.55-1.30 sodium, serum 138 mmol/L 676-348 4977/11/11 potassium, serum 4.7 mmol/L 3.5-5.2 chloride, serum [...] % 11.6-14.8 platelet count 252 10^3/MM^3 10*3/mm3 150-608 3276/10/12 leukocyte count, blood 5.8 10^3/MM^3 10*3/mm3 4.6-10.2 [...] 240 10^3/MM^3 10*3/mm3 142-424 Lab Report: Chlamydia/GC APTIMA/27796, HIV-1/2 Agn/Dominga/07188, RPR (DX) W ... - Chemistry hepatitis B surface antigen NON-REACTIVE NON-REACTIVE Lab Report: Chlamydia/GC APTIMA/06693, HIV-1/2 Agn/Dominga/25191, RPR (DX) W ... - Lab chlamydia DNA probe NOT DETECTED NOT DETECTED Lab Report: Chlamydia/GC APTIMA/27611, HIV-1/2 Agn/Dominga/11543, RPR (DX) W ... - Microbiology Neisseria gonorrhoeae DNA probe NOT DETECTED NOT DETECTED Lab Report: Chlamydia/GC APTIMA/82778, HIV-1/2 Agn/Dominga/82386, RPR (DX) W ... - Serology rapid plasma reagin antibody titer NON-REACTIVE NON-REACTIVE Lab Report: HGBA1C - Chemistry hemoglobin A1C, blood, as % of total hemoglobin 6.1 % 4.3-6.0 Lab Report: Lipid Panel, HEPATIC PANEL, MICROALBUMIN, CBC - Chemistry cholesterol, serum 131 mg/dL 959-272 3950/06/03 alanine aminotransferase (SGPT), serum 112 U/L 12-78 [...] 4.7 mg/dL 2.6-7.2 cholesterol, serum 142 mg/dL 246-167 1512/06/26 triglyceride, serum, fasting 272 mg/dL 30-200 HDL [...] negative Encounters Code Encounter Date Provider Facility [facility]-72941 Level 3 Est. Patient 14:39:00 INSTRUMENTATION AND CONTROLS DESIGNER Vanessa Hickey MD [facility]-16113 Level 2 Est. Patient 18:43:34 CDT Mima Erazo [facility] CPT-55887 Level 3 Est. Patient 16:22:09 CDT Cherelle Avila [facility] CPT-20425 Level 4 Est. Patient 17:55:14 CDT Mima Erazo [facility] CPT-37680 Level 2 Est. Patient 17:13:21 CDT Alina Castaneda MD PhD [facility]-33148 Level 3 Est. Patient 14:46:15 CDT Vanessa Hickey MD [facility]-31664 Level 3 Est. Patient 09:34:56 CDT Alina Castaneda MD PhD [facility]54181 Level 3 Est. Patient 21:40:19 CDT Mima Erazo [facility]21685 Level 3 Est. Patient 09:26:40 CDT Maliheh Ziglari [facility]-31598 Level 3 Est. Patient 12:36:43 CDT Vanessa Hickey MD [facility]-22262 Level 3 Est. Patient 12:57:49 CDT Vanessa Hickey MD [facility]-80533 Level 3 Est. Patient 00:28:25 CDT Alina Castaneda MD [facility]24382 Level 2 Est. Patient 12:52:14 CDT Alina Castaneda MD [facility]37774 Level 3 Est. Patient 11:51:18 INSTRUMENTATION AND CONTROLS DESIGNER Alina Castaneda MD [facility]50212 Level 3 Est. Patient 10:09:22 INSTRUMENTATION AND CONTROLS DESIGNER Alina Castaneda MD [facility]75764 Level 3 Est. Patient 14:36:26 INSTRUMENTATION AND CONTROLS DESIGNER Marvel Charles [facility]-81658 Level 3 Est. Patient 13:34:47 INSTRUMENTATION AND CONTROLS DESIGNER Alina Castaneda MD [facility]32245 Level 3 Est. Patient 19:52:08 INSTRUMENTATION AND CONTROLS DESIGNER Alina Castaneda MD [facility]65745 Level 3 Est. Patient 10:01:51 INSTRUMENTATION AND CONTROLS DESIGNER Marvel Charles [facility]-50819 Level 3 Est. Patient 21:54:06 CDT Vanessa Hickey MD [facility]12585 Level 3 Est. Patient 08:54:46 CDT Alina Castaneda MD [facility]95376 Level 3 Est. Patient 09:32:11 CDT Marvel Charles [facility]64073 Level 3 Est. Patient 12:02:49 CDT Alina Castaneda MD [facility]87968 Level 3 Est. Patient 19:17:33 CDT Alina Castaneda MD [facility]-20172 Level 3 Est. Patient 13:19:10 CDT Marvel Charles [facility]-98844 Level 3 Est. Patient 08:20:05 CDT Alina Castaneda MD [facility]-17853 Level 3 Est. Patient 15:17:18 CDT Alina Castaneda MD [facility]47350 Level 3 Est. Patient 14:25:36 INSTRUMENTATION AND CONTROLS DESIGNER Marvel Charles [facility]-73848 Level 3 Est. Patient 10:09:15 INSTRUMENTATION AND CONTROLS DESIGNER Marvel Charles [facility]-03830 Level 3 Est. Patient 21:28:43 CDT Alina Castaneda MD [facility]-47337 Level 3 Est. [facility] 15:20[facility] Est[facility] Patient 19:08:12 CDT Alina Castaneda MD [facility]-78222 Level 3 Est. Patient 15:06:39 CDT Marvel Charles [facility]-54570 Level 4 Est. Patient 17:48:15 CDT Alina Castaneda MD [facility]-40365 Level 3 Est. Patient 14:53:49 CDT Alina Castaneda MD [facility]-82811 Level 3 Est. Patient 09:35:16 CDT Alina Castaneda MD [facility]-46359 Level 3 Est. Patient 12:23:22 CDT Alina Castaneda MD [facility]-72634 Level 3 Est. Patient 16:19:15 CDT Alina Castaneda MD [facility]-53445 Level 3 Est. Patient 21:39:56 INSTRUMENTATION AND CONTROLS DESIGNER Alina Castaneda MD [facility]-28776 Level 4 Est. Patient 14:12:56 INSTRUMENTATION AND CONTROLS DESIGNER Alina Castaneda MD [facility]-24727 Level 2 Est. Patient 15:34:57 INSTRUMENTATION AND CONTROLS DESIGNER Alina Castaneda MD [facility]-65330 Level 3 Est. Patient 12:17:04 INSTRUMENTATION AND CONTROLS DESIGNER Alina Castaneda MD [facility]39415 Level 3 Est. Patient 09:18:18 INSTRUMENTATION AND CONTROLS DESIGNER Marvel Charles [facility]-42398 Level 2 Est. Patient 21:50:24 CDT Alina Castaneda MD [facility]-85015 Level 3 Est. Patient 09:17:28 CDT Marvel Charles [facility]-53541 Level 4 Est. Patient 18:54:02 CDT Alina Castaneda MD [facility]-92941 Level 3 Est. Patient 10:47:10 CDT Alina Castaneda MD [facility]-[id number] Level 3 Est. Patient 09:22:20 CDT Marvel Charles [facility]-00137 Level 3 Est. Patient 16:39:43 CDT Marvel Charles [facility]-33184 Level 3 Est. Patient 16:05:16 CDT Alina Castaneda MD [id number] Level 3 Est. Patient 00:29:15 CDT Alina Castaneda MD [id number] Level 3 Est. Patient 10:49:22 INSTRUMENTATION AND [employer]OLS [facility]IGN[facility] Level 3 Est. Patient 21:30:19 INSTRUMENTATION AND CONTROLS DESIGNER Alina Castaneda MD [facility] CPT-52315 Level 4 Est. Patient 17:04:11 INSTRUMENTATION AND CONTROLS DESIGNER [facility] CPT-19924 Level 3 Est. Patient 15:34:11 INSTRUMENTATION AND CONTROLS DESIGNER [facility] CPT-84816 Level 2 Est. Patient 12:51:58 INSTRUMENTATION AND CONTROLS DESIGNER Alina Castaneda MD [facility] CPT-66433 Level 3 Est. Patient 13:20:01 INSTRUMENTATION AND CONTROLS DESIGNER Alina Castaneda MD PhD [facility] CPT-28985 Level 3 Est. 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 CPT-35798 Bladder Scan 12:36:44 CDT CPT-98912 Bladder Scan 21:54:06 CDT CPT-G0008 Administration of Influenza Virus Vaccine 13:05:26 CDT CPT-23289 Fluzone Quadrivalent Intramuscular Suspension 0.5 ML 13: 05:26 CDT CPT-73004 Administration single or combination vaccine inc oral 11 :49:51 CDT CPT-56476 Pneumovax 11:49:51 CDT CPT-34368 Ribs unilateral 2V 12:37:22 INSTRUMENTATION AND [employer]OLS DESIGNER CPT-91653 Chest 2V Frontal and Lat 17:15:26 CDT CPT-17337 Abx/Therapy Injection 18:54:02 CDT CPT-J0696 Rocephin 1000 mg (Ceftriaxone) 16:00:32 CDT CPT-83714 Chest 2V Frontal and Lat 15:26:45 CDT CPT-39991 Chest 2V Frontal and Lat 10:23:27 CDT CPT-76543 Venipuncture Draw Fee 10:11:00 CDT CPT-84800 Administration single or combination vaccine inc oral 11 :56:38 CDT CPT-75210 Influenza split virus > age 3 11:56:38 CDT CPT-78523 Venipuncture Draw Fee 08:49:54 INSTRUMENTATION AND CONTROLS DESIGNER CPT-66133 EKG Trac and Interp 17:54:19 INSTRUMENTATION AND CONTROLS DESIGNER
--- OUTSIDE RECORDS SUMMARY | 2018-07-02 18:37 | XMS REPORT | Clinical Summary ---
Author Author Admin, TERELL Organization [facility] Address Unknown Phone Unavailable Allergies, Adverse Reactions, [...] of complication Chest pain, atypical 786.59 Resolved lAina Castaneda MD PhD Other chest pain Chest pain, atypical 786.59 Resolved Alina Castaneda MD PhD Other chest pain Urinary Retention 788.20 Active Vanessa Hickey MD Retention of urine, unspecified Benign paroxysmal positional vertigo 386.11 Active Mima Erazo DRIER Benign paroxysmal positional vertigo Vertigo, benign paroxysmal position 386.11 Inactive Mima Erazo DRIER Benign paroxysmal positional vertigo High-risk sexual behavior V69.2 Active Alina Castaneda MD PhD High-risk sexual behavior Erectile dysfunction 302.72 Active Alina Castaneda MD PhD Psychosexual dysfunction with inhibited sexual excitement Constipation 564.00 Active Alina Castaneda MD PhD Constipation, unspecified Skin lesion 709.9 Active Alina Castaneda MD PhD Unspecified disorder of skin and subcutaneous tissue Malaise and fatigue 780.79 Active Cherelle Speaks DRIER Other malaise and fatigue Diarrhea 787.91 Active Cherelle Speaks DRIER Diarrhea PHARYNGITIS 462 Active Cherelle Speaks DRIER Acute pharyngitis Colitis 558.9 Active Mima Erazo DRIER Other and unspecified noninfectious gastroenteritis and colitis [...] TO HIGH-RISK SEXUAL BEHAVIOR ICD-V69.2 Inactive Alina Castanead MD PhD CHEST COUGH ICD-786.2 Inactive Alina [...] Patient Instruction EFFEXOR XR 37.5 MG ORAL [id number] Take one by mouth daily VENLAFAXINE HCL 45203563239 Active Mima Vadimum ALBAN Active TRAVATAN Z 0.004 % OPHTH SOLN 1 drop each eye daily TRAVOPROST 22581026862 Active Mima Yokum DRIER Active FLUVOXAMINE MALEATE 50 MG ORAL TABS 1 tab by mouth daily FLUVOXAMINE MALEATE 52302189973 No Longer Active Mima Vadimum ALBAN Active MORPHINE SULFATE ER 30 MG ORAL CR-TABS Take one capsule BID MORPHINE SULFATE 34212396444 Active Mima Yokum DRIER Active TRUEPLUS LANCETS 30G MISC 3x a day LANCETS 55575091910 Active Marvel Charles EXHIBIT CLEANER Active TRUE METRIX METER W/DEVICE KIT Check blood sugars 3x/day BLOOD GLUCOSE MONITORING SUPPL 93170206635 Active Marvel Mackenzieglari EXHIBIT CLEANER Active TRUE METRIX BLOOD GLUCOSE TEST INVITR STRP Check blood sugars 3x/day. GLUCOSE BLOOD 34650031094 Active aMrvel Mackenzieglari EXHIBIT CLEANER Active VITAMIN D 2000 UNIT ORAL CAPS Take one by mouth daily CHOLECALCIFEROL 51027683626 Active Mima Yokum DRIER Active LATUDA 60 MG ORAL TABS Take one by mouth daily LURASIDONE HCL 60957483224 No Longer Active Mima Yokum DRIER Active HUMALOG KWIKPEN 100 UNIT/ML SC SOPN sliding scale if needed INSULIN LISPRO (HUMAN) 28255908413 Active Mima Yokum DRIER Active TRAZODONE HCL 100 MG TABS 1 every night to prevent headaches TRAZODONE HCL 69644447337 Active Agbrielle Madl BOSS MINER Active LATUDA 60 MG ORAL TABS 1 tab daily LURASIDONE HCL 90259088899 Active Gabrielle Madl BOSS MINER Active CLONAZEPAM 1 MG TABS 1 pill by mouth three times daily CLONAZEPAM 70723929404 Active Gabrielle Madl BOSS MINER Active [facility] MILK OF MAGNESIA 400 MG/5ML ORAL SUSP 30ml by mouth bid prn MAGNESIUM HYDROXIDE 79483778982 Active Mason Loredo MD Active TYLENOL 8 HOUR 650 MG ORAL CR-TABS 1 tab QID prn ACETAMINOPHEN 53667012646 Active Mason Loredo MD Active MYLANTA GAS RELIEF MAXIMUM STR 125 MG ORAL CAPS 30cc every 4 hours prn 12/01 SIMETHICONE 87314436308 Active Mason Loredo MD Active IMODIUM A-D 2 MG ORAL TABS 1 tab QID as needed LOPERAMIDE HCL 44194962868 Active Mason Loredo MD Active TRAVATAN Z 0.004 % SOLN 1 gtt each eye daily TRAVOPROST 37130455058 No Longer Active Mason Loredo MD Active LISINOPRIL 20 MG TABS 1 BID LISINOPRIL 27932670860 No Longer Active Mason Loredo MD Active LEVEMIR FLEXTOUCH 100 UNIT/ML SC SOPN 60 units SQ each evening, for diabetes INSULIN DETEMIR 00510008616 Active Mima Erazo APRN Active ZOLPIDEM TARTRATE 10 MG TABS take at bedtime ZOLPIDEM TARTRATE 89949765756 No Longer Active Mason Loredo MD Active HYDROCODONE-ACETAMINOPHEN 5-325 MG TABS 2 tabs by mouth three times daily for pain HYDROCODONE-ACETAMINOPHEN 33499114394 No Longer Active Mason Loredo MD Active ZOFRAN 4 MG TABS 1 po q4hr PRN Nausea ONDANSETRON HCL 82372751861 No Longer Active Mason Loredo MD Active LOMOTIL 2.5-0.025 MG ORAL TABS take 1-2 tabs PO after each stool, no more than 8 in 24 hours DIPHENOXYLATE-ATROPINE 52221970657 No Longer Active Mason Loredo MD Active COLACE 100 MG CAPS 1 pill by mouth twice daily, for constipation DOCUSATE SODIUM 69645984931 No Longer Active Mima Erazo APRN Active FLONASE ALLERGY RELIEF 50 MCG/ACT NASAL SUSP One spray each nostril BID x 1 week then daily FLUTICASONE PROPIONATE 79801784492 Active Mima Erazo APRN Active BD PEN NEEDLE MINI U/F 31G X 5 MM MISC 4 a day INSULIN PEN NEEDLE 21396716463 Active Marvel MARROQUIN Active AMITIZA 24 MCG ORAL CAPS Take one capsule BID for constipation LUBIPROSTONE 22617372333 Active Mima Erazo APRN Active TRUEPLUS LANCETS 30G MISC 3 a day LANCETS 51632449411 Active Marvel MARROQUIN Active TOLTERODINE TARTRATE 2 MG TABS 1 pill twice daily, for bladder TOLTERODINE TARTRATE 18705582720 No Longer Active Vanessa Hickey MD Active AMITIZA 24 MCG ORAL CAPS Take one capsule BID for constipation. LUBIPROSTONE 40195431337 No Longer Active Vanessa Hickey MD Active FLUVOXAMINE MALEATE 100 MG ORAL TABS take one tab every AM et HS, and take 1/ 2 tab at noon FLUVOXAMINE MALEATE 76479893249 Active Grace Azam RMA Active METOPROLOL SUCCINATE 100 MG [id number] 1 by mouth daily for blood pressure METOPROLOL SUCCINATE 00552615705 No Longer Active Grace Azam RMA Active METFORMIN HCL ER 500 MG [id number]-AJP Take three tablets by mouth everyday METFORMIN HCL 89368855956 No Longer Active Grace Azam RMA Active LOVAZA 1 GM CAPS 4 daily (for triglycerides) OMEGA-3- ACID ETHYL ESTERS 99874170826 No Longer Active Grace Azam RMA Active TRAZODONE HCL 100 MG ORAL TABS 1 tab by mouth for sleep TRAZODONE HCL 11193195043 No Longer Active Grace Azam RMA Active NOVOFINE 32G X 6 MM MISC use one four times per day INSULIN PEN NEEDLE 63965870190 No Longer Active Grace Azam RMA Active BACTROBAN 2 % CREAM Apply to affected area BID for up to 10 days MUPIROCIN CALCIUM 16646761590 No Longer Active Grace Azam RMA Active KEFLEX 500 MG CAP 1 po BID x 7 days CEPHALEXIN 69596843308 No Longer Active Cherelle Avila APRN Active FLUVOXAMINE MALEATE 100 MG TABS Take one (1) tablet by mouth am, 1/2 at noon FLUVOXAMINE MALEATE 16075931365 No Longer Active Mimacecily Erazo DRIER Active CORICIDIN HBP CONGESTION/COUGH 10-200 MG ORAL CAPS Take as directed on box as needed for cold/flu symptoms DEXTROMETHORPHAN-GUAIFENESIN 76532226374 Active Cherelle Speaks DRIER Active OMEGA-3 300 MG ORAL CAPS 4 caps by mouth daily OMEGA-3 FATTY ACIDS 36330363597 Active Mima Yokum DRIER Active FLUVOXAMINE MALEATE 100 MG ORAL TABS Take 1/2 tab at noon FLUVOXAMINE MALEATE 38874622157 No Longer Active Cherelle Avila APRN Active [facility] LUBRICANT EYE DROPS 0.4-0.3 % OPHTH SOLN POLYETHYL GLYCOL-PROPYL GLYCOL 46354614993 Active Mima Erazo APRN Active MIRALAX POWD 17g by mouth daily, for constipation POLYETHYLENE GLYCOL 3350 22258198274 Active Mima Erazo APRN Active TRUETEST TEST STRP check blood sugars 3x/day GLUCOSE BLOOD 86300889286 Active Maliheh Ziglari EXHIBIT CLEANER Active ACCU-CHEK ROSA UZMA Use device to check blood sugars BLOOD GLUCOSE MONITORING SUPPL 39683817428 No Longer Active Maliheh Ziglari EXHIBIT CLEANER Active ACCU-CHEK ROSA INVITR STRP use strips with device to check blood sugars 3 times daily GLUCOSE BLOOD 88288371278 No Longer Active Mallashondaeh Ziglari EXHIBIT CLEANER Active VERAPAMIL HCL ER 180 MG ORAL CR-TABS 1 pill by mouth twice daily, for migraine prevention VERAPAMIL HCL 80241387145 Active Mima Erazo APRN Active CYCLOBENZAPRINE HCL 10 MG TABS 1 tablet by mouth three times daily, scheduled CYCLOBENZAPRINE HCL 36708640923 No Longer Active Alina Castaneda MD PhD Active HUMALOG 100 UNIT/ML SOLN Take 20 units with breakfast, 10u with lunch and suppetr. INSULIN LISPRO (HUMAN) 97134416537 No Longer Active Alina Castaneda MD PhD Active TRUETEST TEST STRP check sugars 4x/day GLUCOSE BLOOD 74579378424 No Longer Active Alina Castaneda MD PhD Active MORPHINE SULFATE 30 MG TABS 1 pill by mouth twice daily, for pain MORPHINE SULFATE 47684627823 No Longer Active Mason Loredo MD Active ACYCLOVIR 400 MG ORAL TABS 1 pill three times daily x 5 days, for cold sore outbreak ACYCLOVIR 14141863221 No Longer Active Alina Castaneda MD PhD Active PENICILLIN V POTASSIUM 500 MG TABS 1 pill by mouth three times daily PENICILLIN V POTASSIUM 38466105827 No Longer Active Alina Castaneda MD PhD Active UROXATRAL 10 MG [id number]-QFI Take 1 tablet by mouth daily ALFUZOSIN HCL 96067651143 No Longer Active Alina Castaneda MD PhD Active THIOTHIXENE 5 MG CAPS by mouth twice a day THIOTHIXENE 75481625344 No Longer Active Alina Castaneda MD PhD Active ZYPREXA 7.5 MG TABS 1 at HS OLANZAPINE 06070144144 No Longer Active Alina Castaneda MD PhD Active BD INSULIN SYRINGE 28G X 1/2" 1 ML MISC 1 four times per day INSULIN SYRINGE-NEEDLE U-100 93780764242 Active Marvel Charles [facility] Active DETROL LA 4 MG [id number] Take 1 tablet by mouth daily TOLTERODINE TARTRATE 53564020127 No Longer Active Alina Castaneda MD PhD Active TERESE CONTOUR TEST STRP monitor blood sugars 3x/day GLUCOSE BLOOD 62954196695 No Longer Active Alina Castaneda MD PhD Active EQL TRUETEST TEST STRP Test blood sugar TID GLUCOSE BLOOD 52229026360 No Longer Active Alina Castaneda MD PhD Active FLUTICASONE PROPIONATE 50 MCG/ACT SUSP 2 sprays each nostril qDay x 30 days FLUTICASONE PROPIONATE 56236000052 No Longer Active Alina Castaneda MD PhD Active IBUPROFEN 200 MG TABS 1 Q 6 hr. PRN IBUPROFEN 11531702348 No Longer Active Alina Castaneda MD PhD Active NIACIN ER 500 MG CR-TABS 4 qHS (for triglycerides) NIACIN 83784508666 No Longer Active Alina Castaneda MD PhD Active ALFUZOSIN HCL ER 10 MG [id number]-LTW 1 tablet daily ALFUZOSIN HCL 44172889651 Active Mima Erazo DRIER Active SAPHRIS 5 MG SUBL by mouth twice a day ASENAPINE MALEATE 64013301889 No Longer Active Marvel Charles EXHIBIT CLEANER Active ACETAMINOPHEN 500 MG TABS 2 Q 6 hr. PRN ACETAMINOPHEN 41663762206 No Longer Active Maliheh Ziglari EXHIBIT CLEANER Active ORPHENADRINE CITRATE ER 100 MG ML36H-SQY 1 every 12 hr. as needed ORPHENADRINE CITRATE 81000311082 No Longer Active Alina Castaneda MD PhD Active NIACIN CR 500 MG CR-TABS 2 qHS NIACIN 37889420067 No Longer Active Alina Castaneda MD PhD Active AMOXICILLIN 500 MG CAPS 2 po BID x 10 days AMOXICILLIN 48124444600 No Longer Active Alina Castaneda MD PhD Active HYDROCODONE-ACETAMINOPHEN 7.5-325 MG TABS 1 four times a day as needed for pain HYDROCODONE-ACETAMINOPHEN 42818646773 No Longer Active Alina Castaneda MD PhD Active DOXEPIN HCL 10 MG CAPS Take 1 tablet by mouth daily DOXEPIN HCL 96815684938 No Longer Active [facility] Active NAVANE 10 MG CAPS 1/2 tablet twice a day THIOTHIXENE No Longer Active [facility] Active CYCLOBENZAPRINE HCL 10 MG TABS 1/2 tablet by mouth every 8 hours as needed for muscle spasms CYCLOBENZAPRINE HCL 92084019268 No Longer Active Alina Castaneda MD PhD Active BACTROBAN 2 % CREAM apply to ear and nose twice daily MUPIROCIN CALCIUM 81152577249 No Longer Active Alina Castaneda MD PhD Active HYDROCODONE-ACETAMINOPHEN 5-325 MG TABS take one tablet by mouth every four hours as needed for pain HYDROCODONE-ACETAMINOPHEN 93812465599 No Longer Active Alina Castaneda MD PhD Active ZYPREXA 5 MG TABS take one tablet by mouth every evening OLANZAPINE 81664751481 No Longer Active Alina Castaneda MD PhD Active ALBUTEROL SULFATE 0.083 % NEBU SOLN one vial per nebulizer TID and PRN cough/ soa ALBUTEROL SULFATE 22851937711 No Longer Active Alina Castaneda MD PhD Active GUAIFENESIN 600 MG RI25I-VUK 1 tablet by mouth twice daily if needed for cough GUAIFENESIN 55714522495 No Longer Active Marvel MARROQUIN Active AZITHROMYCIN 500 MG SOLR 1 po q day AZITHROMYCIN 42546431925 No Longer Active Alina Castaneda MD PhD Active PROMETHAZINE-CODEINE 6.25-10 MG/5ML SYRP 1 tsp po q 6 hours prn cough PROMETHAZINE-CODEINE 97143897223 No Longer Active Alina Castanead MD PhD Active CEFDINIR 300 MG CAPS by mouth twice a day CEFDINIR 38838401024 No Longer Active Alina Castaneda MD PhD Active METFORMIN HCL 500 MG [id number]-[id number] Take 3 tablets by mouth everyday METFORMIN HCL 93216511122 No Longer Active Alina Castaneda MD PhD Active LEVEMIR 100 UNIT/ML SOLN 90 units SQ qHS INSULIN DETEMIR 15230530464 No Longer Active Marvel MARROQUIN Active TOPROL XL 100 MG VR32G-TFX 1 @ HS METOPROLOL SUCCINATE 22814845529 No Longer Active Marvel MARROQUIN Active ALLOPURINOL 300 MG TABS Take one by mouth daily ALLOPURINOL 35121361962 Active Mima Yokum DRIER Active ZYPREXA 10 MG TABS Take one by mouth daily OLANZAPINE 87590759010 No Longer Active Alina Castaneda MD PhD Active NOVOLOG 100 UNIT/ML SOLN 40 units with every meal INSULIN ASPART 68261008743 No Longer Active Alina Castaneda MD PhD Active VERAPAMIL HCL CR 120 MG TAB CR 1 qPM VERAPAMIL HCL 96469972231 No Longer Active Salina Emely RMA Active ZYPREXA 15 MG TABS Take 1 tablet by mouth daily OLANZAPINE 97216948948 No Longer Active Marvel MENDOZAP Active ALBUTEROL SULFATE (2.5 MG/3ML) 0.083% NEBU 1 neb tid and prn cough ALBUTEROL SULFATE 60467016496 No Longer Active Alina Castaneda MD PhD Active LANTUS 100 UNIT/ML SOLN 60 units sq q hs INSULIN GLARGINE 70158911964 No Longer Active Alina Mendez RMA Active ALBUTEROL SULFATE (2.5 MG/3ML) 0.083% NEBU 1 neb tid and prn cough ALBUTEROL SULFATE (2.5 MG/3ML) 0.083% NEBU 768860 ALBUTEROL SULFATE Inactive ZYPREXA 15 MG TABS Take 1 tablet by mouth daily ZYPREXA 15 MG TABS 820581 OLANZAPINE Inactive VERAPAMIL HCL CR 120 MG TAB CR 1 qPM VERAPAMIL HCL CR 120 MG TAB CR VERAPAMIL HCL Inactive ZYPREXA 10 MG TABS Take one by mouth daily ZYPREXA 10 MG TABS 078470 OLANZAPINE Inactive TOPROL XL 100 MG [id number] 1 @ HS TOPROL XL 100 MG HU33Z-NFW METOPROLOL SUCCINATE Inactive LEVEMIR 100 UNIT/ML SOLN 90 units SQ qHS LEVEMIR 100 UNIT/ML SOLN INSULIN DETEMIR Inactive PROMETHAZINE-CODEINE 6.25-10 MG/5ML SYRP 1 tsp po q 6 hours prn cough PROMETHAZINE-CODEINE 6.25-10 MG/5ML SYRP 190441 PROMETHAZINE- CODEINE Inactive GUAIFENESIN 600 MG OX96U-DNR 1 tablet by mouth twice daily if needed for cough GUAIFENESIN 600 MG TR34H-PTL GUAIFENESIN Inactive ALBUTEROL SULFATE 0.083 % NEBU SOLN one vial per nebulizer TID and PRN cough/ soa ALBUTEROL SULFATE 0.083 % [facility] 351145 ALBUTEROL SULFATE Inactive ZYPREXA 5 MG TABS take one tablet by mouth every evening ZYPREXA 5 MG TABS 928564 OLANZAPINE Inactive HYDROCODONE-ACETAMINOPHEN 5-325 MG TABS take one tablet by mouth every four hours as needed for pain HYDROCODONE-ACETAMINOPHEN 5-325 MG TABS 917912 HYDROCODONE-ACETAMINOPHEN Inactive BACTROBAN 2 % CREAM apply to ear and nose twice daily BACTROBAN 2 % CREAM 717065 MUPIROCIN CALCIUM Inactive CYCLOBENZAPRINE HCL 10 MG TABS 1/2 tablet by mouth every 8 hours as needed for muscle spasms CYCLOBENZAPRINE HCL 10 MG TABS 014730 CYCLOBENZAPRINE HCL Inactive NAVANE 10 MG CAPS 1/2 tablet twice a day NAVANE 10 MG CAPS THIOTHIXENE Inactive DOXEPIN HCL 10 MG CAPS Take 1 tablet by mouth daily DOXEPIN HCL 10 MG CAPS 4786697 DOXEPIN HCL Inactive HYDROCODONE-ACETAMINOPHEN 7.5-325 MG TABS 1 four times a day as needed for pain HYDROCODONE-ACETAMINOPHEN 7.5-325 MG TABS 176963 HYDROCODONE-ACETAMINOPHEN Inactive NIACIN CR 500 MG CR-TABS 2 qHS NIACIN CR 500 MG CR- TABS NIACIN Inactive ORPHENADRINE CITRATE ER 100 MG [id number] 1 every 12 hr. as needed ORPHENADRINE CITRATE ER 100 MG [id number]-[id number] ORPHENADRINE CITRATE Inactive ACETAMINOPHEN 500 MG TABS 2 Q 6 hr. PRN ACETAMINOPHEN 500 MG TABS 062983 ACETAMINOPHEN Inactive SAPHRIS 5 MG SUBL by mouth twice a day SAPHRIS 5 MG SUBL ASENAPINE MALEATE Inactive NIACIN ER 500 MG CR-TABS 4 qHS (for triglycerides) NIACIN ER 500 MG CR-TABS NIACIN Inactive IBUPROFEN 200 MG TABS 1 Q 6 hr. PRN IBUPROFEN 200 MG TABS 116114 IBUPROFEN Inactive FLUTICASONE PROPIONATE 50 MCG/ACT SUSP 2 sprays each nostril qDay x 30 days FLUTICASONE PROPIONATE 50 MCG/ACT SUSP 1493105 FLUTICASONE PROPIONATE Inactive EQL TRUETEST TEST STRP Test blood sugar TID EQL TRUETEST TEST STRP GLUCOSE BLOOD Inactive TERESE CONTOUR TEST STRP monitor blood sugars 3x/day TERESE CONTOUR TEST STRP GLUCOSE BLOOD Inactive DETROL LA 4 MG [id number] Take 1 tablet by mouth daily DETROL LA 4 MG RW22B-OXP TOLTERODINE TARTRATE Inactive ZYPREXA 7.5 MG TABS 1 at HS ZYPREXA 7.5 MG TABS 086766 OLANZAPINE Inactive THIOTHIXENE 5 MG CAPS by mouth twice a day THIOTHIXENE 5 MG CAPS 800952 THIOTHIXENE Inactive UROXATRAL 10 MG YJ13R-PIF Take 1 tablet by mouth daily UROXATRAL 10 MG [id number]-ING ALFUZOSIN HCL Inactive ACYCLOVIR 400 MG ORAL TABS 1 pill three times daily x 5 days, for cold sore outbreak ACYCLOVIR 400 MG ORAL TABS 355716 ACYCLOVIR Inactive TRUETEST TEST STRP check sugars 4x/day TRUETEST TEST STRP GLUCOSE BLOOD Inactive HUMALOG 100 UNIT/ML SOLN Take 20 units with breakfast, 10u with lunch and suppetr. HUMALOG 100 UNIT/ML SOLN INSULIN LISPRO ( HUMAN) Inactive CYCLOBENZAPRINE HCL 10 MG TABS 1 tablet by mouth three times daily, scheduled CYCLOBENZAPRINE HCL 10 MG TABS 058708 CYCLOBENZAPRINE HCL Inactive ACCU-CHEK ROSA INVITR STRP use strips with device to check blood sugars 3 times daily ACCU-CHEK ROSA INVITR STRP GLUCOSE BLOOD Inactive ACCU-CHEK ROSA UZMA Use device to check blood sugars ACCU-CHEK ROSA UZMA BLOOD GLUCOSE MONITORING SUPPL Inactive FLUVOXAMINE MALEATE 100 MG ORAL TABS Take 1/2 tab at noon FLUVOXAMINE MALEATE 100 MG ORAL TABS 288394 FLUVOXAMINE MALEATE Inactive FLUVOXAMINE MALEATE 100 MG TABS Take one (1) tablet by mouth am, 1/2 at noon FLUVOXAMINE MALEATE 100 MG TABS 192475 FLUVOXAMINE MALEATE Inactive BACTROBAN 2 % CREAM Apply to affected area BID for up to 10 days BACTROBAN 2 % CREAM 244156 MUPIROCIN CALCIUM Inactive NOVOFINE 32G X 6 MM MISC use one four times per day NOVOFINE 32G X 6 MM MISC INSULIN PEN NEEDLE Inactive TRAZODONE HCL 100 MG ORAL TABS 1 tab by mouth for sleep TRAZODONE HCL 100 MG ORAL TABS 744415 TRAZODONE HCL Inactive LOVAZA 1 GM CAPS 4 daily (for triglycerides) LOVAZA 1 GM CAPS 515885 BZBBH-7-NATW ETHYL ESTERS Inactive METFORMIN HCL ER 500 MG UT05O-TKV Take three tablets by mouth everyday METFORMIN HCL ER 500 MG HH45I-UES METFORMIN HCL Inactive METOPROLOL SUCCINATE 100 MG PP09D-PLW 1 by mouth daily for blood pressure METOPROLOL SUCCINATE 100 MG EL86A-OFS METOPROLOL SUCCINATE Inactive AMITIZA 24 MCG ORAL CAPS Take one capsule BID for constipation. AMITIZA 24 MCG ORAL CAPS LUBIPROSTONE Inactive TOLTERODINE TARTRATE 2 MG TABS 1 pill twice daily, for bladder TOLTERODINE TARTRATE 2 MG TABS 104187 TOLTERODINE TARTRATE Inactive COLACE 100 MG CAPS 1 pill by mouth twice daily, for constipation COLACE 100 MG CAPS 2132491 DOCUSATE SODIUM Inactive LOMOTIL 2.5-0.025 MG ORAL TABS take 1-2 tabs PO after each stool, no more than 8 in 24 hours LOMOTIL 2.5-0.025 MG ORAL TABS 7462687 DIPHENOXYLATE-ATROPINE Inactive ZOFRAN 4 MG TABS 1 po q4hr PRN Nausea ZOFRAN 4 MG TABS 913338 ONDANSETRON HCL Inactive HYDROCODONE-ACETAMINOPHEN 5-325 MG TABS 2 tabs by mouth three times daily for pain HYDROCODONE-ACETAMINOPHEN 5-325 MG TABS 810432 HYDROCODONE-ACETAMINOPHEN Inactive ZOLPIDEM TARTRATE 10 MG TABS take at bedtime ZOLPIDEM TARTRATE 10 MG TABS 851018 ZOLPIDEM TARTRATE Inactive LISINOPRIL 20 MG TABS 1 BID LISINOPRIL 20 MG TABS 599430 LISINOPRIL Inactive TRAVATAN Z 0.004 % SOLN 1 gtt each eye daily TRAVATAN Z 0.004 % SOLN TRAVOPROST Inactive LATUDA 60 MG ORAL TABS Take one by mouth daily LATUDA 60 MG ORAL TABS LURASIDONE HCL Inactive FLUVOXAMINE MALEATE 50 MG ORAL TABS 1 tab by mouth daily FLUVOXAMINE MALEATE 50 MG ORAL TABS 968953 FLUVOXAMINE MALEATE Inactive CEFDINIR 300 MG CAPS by mouth twice a day CEFDINIR 300 MG CAPS 671504 CEFDINIR Inactive AZITHROMYCIN 500 MG SOLR 1 po q day AZITHROMYCIN 500 MG SOLR 89519143198 AZITHROMYCIN Inactive AMOXICILLIN 500 MG CAPS 2 po BID x 10 days AMOXICILLIN 500 MG CAPS 849864 AMOXICILLIN Inactive PENICILLIN V POTASSIUM 500 MG TABS 1 pill by mouth three times daily PENICILLIN V POTASSIUM 500 MG TABS 791854 PENICILLIN V POTASSIUM Inactive KEFLEX 500 MG CAP 1 po BID x 7 days KEFLEX 500 MG CAP 819375 CEPHALEXIN Inactive Immunizations Vaccine Administration Date Value [...] Fluvirin, Fluarix, Agriflu(>=18 yo)) Fluzone (>3 yrs.) [[id number]] Influenza, seasonal, injectable pneumococcal immunization administered Pneumovax [...] HGBA1C - Chemistry sodium, serum 140 mmol/L 768-151 5541/11/09 urea nitrogen, blood 8 mg/dL 7-18 creatinine, serum 0.86 mg/dL 0.55-1.30 hemoglobin A1C, blood, as % of total hemoglobin 6.4 % 4.3-6.0 potassium, serum 4.0 mmol/L 3.5-5.2 chloride, serum 102 mmol/L 98-107 carbon dioxide, venous blood 33.0 mmol/L 21.0-32.0 blood glucose 120 mg/dL 65-110 calcium, serum 9.0 mg/dL 8.5-10.1 Lab Report: HGBA1C - Chemistry hemoglobin A1C, blood, as % of total hemoglobin 6.1 % 4.3-6.0 Lab Report: Lipid Panel, HEPATIC PANEL, Uric Acid - Chemistry LDL cholesterol, serum 111 mg/dL 0-130 aspartate aminotransferase (SGOT), serum 25 U/L 15-37 alanine aminotransferase (SGPT), serum 48 U/L 12-78 bilirubin, serum, total 0.40 mg/dL 0.00-1.00 uric acid, serum 4.2 mg/dL 2.6-7.2 HDL cholesterol, serum 27 mg/dL 32-96 triglyceride, serum, fasting 246 mg/dL 30-200 cholesterol, serum 187 mg/dL 130-200 Lab Report: MICROALB/CREAT W/RATIO - Chemistry albumin/creatinine [...] negative Encounters Code Encounter Date Provider Facility CPT-35751 Level 3 Est. 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 Patient 16:52:51 CDT Vanessa Hickey MD [facility]-21879 Level 3 Est. Patient 17:40:16 CDT Mima Erazo [facility]-47757 Level 3 Est. Patient 14:34:52 CDT Vanessa Hickey MD [facility]-21530 Level 3 Est. Patient 16:27:51 CDT Mima Erazo [facility]-62655 Level 3 Est. Patient 14:39:00 HUMAN FACTORS ERGONOMIST Vanessa Hickey MD [facility]-33245 Level 2 Est. Patient 18:43:34 CDT Mima Erazo [facility] CPT-19733 Level 3 Est. Patient 16:22:09 CDT Cherelle Avila [facility] [place] CPT-81032 Level 4 Est. Patient 17:55:14 CDT Mima Erazo [facility] CPT-20371 Level 2 Est. Patient 17:13:21 CDT Alina Castaneda MD [facility]-69969 Level 3 Est. Patient 14:46:15 CDT Vanessa Hickey MD [facility]-44833 Level 3 Est. Patient 09:34:56 CDT Alina Castaneda MD [facility]47454 Level 3 Est. Patient 21:40:19 CDT Mima Erazo [facility] CPT-03226 Level 3 Est. Patient 09:26:40 CDT Marvel Charles [facility]-83816 Level 3 Est. Patient 12:36:43 CDT Vanessa Hickey MD [facility]-69358 Level 3 Est. Patient 12:57:49 CDT Vanessa Hickey MD [facility]-66251 Level 3 Est. Patient 00:28:25 CDT Alina Castaneda MD [facility]-31593 Level 2 Est. Patient 12:52:14 CDT Alina Castaneda MD [facility]-31370 Level 3 Est. Patient 11:51:18 HUMAN FACTORS ERGONOMIST Alina Castaneda MD [facility]-83711 Level 3 Est. Patient 10:09:22 HUMAN FACTORS ERGONOMIST Alina Castaneda MD [facility]37758 Level 3 Est. Patient 14:36:26 [facility]63859 Level 3 Est. Patient 13:34:47 HUMAN FACTORS ERGONOMIST Alina Castaneda MD [facility]34157 Level 3 Est. Patient 19:52:08 HUMAN FACTORS ERGONOMIST Alina Castaneda MD [facility]37630 Level 3 Est. Patient 10:01:51 [facility]UMAN FACTORS [facility]OM[facility]88307 Level 3 Est. Patient 21:54:06 CDT Vanessa Hickey MD [facility]14502 Level 3 Est. Patient 08:54:46 CDT Alina Castaneda MD [facility] [place]-09546 Level 3 Est. Patient 09:32:11 CDT [facility]-33260 Level 3 Est. Patient 12:02:49 CDT Alina Castaneda MD [facility]27469 Level 3 Est. Patient 19:17:33 CDT Alina Castaneda MD [facility]38223 Level 3 Est. Patient 13:19:10 CDT [facility]-57997 Level 3 Est. Patient 08:20:05 CDT Alina Castaneda MD [facility] [place]-78228 Level 3 Est. Patient 15:17:18 CDT Alina Castaneda MD [facility] [place]-22704 Level 3 Est. Patient 14:25:36 [employer]IST [facility]-07572 Level 3 Est. Patient 10:09:15 [employer]OMIST [facility]-22136 Level 3 Est. Patient 21:28:43 CDT Alina Castaneda MD [facility] [place]-72992 Level 3 Est. Patient 15:20:11 [facility] Patient 19:08:12 CDT Alina Castaneda MD [facility] [place]-60656 Level 3 Est. Patient 15:06:39 [facility] Level 4 Est. Patient 17:48:15 CDT Alina Castaneda MD [facility] [place]-52234 Level 3 Est. Patient 14:53:49 CDT Alina Castaneda MD [facility] [place]-12135 Level 3 Est. Patient 09:35:16 CDT Alina Castaneda MD [facility] [place]-58270 Level 3 Est. Patient 12:23:22 CDT Alina Castaneda MD [facility] [place]-48334 Level 3 Est. Patient 16:19:15 CDT Alina Castaneda MD [facility] [place]-07054 Level 3 Est. Patient 21:39:56 [employer] ERGONOMIST Alina Castaneda MD [facility]40497 Level 4 Est. Patient 14:12:56 [employer] ERGONOMIST Alina Castaneda MD [facility] [place]-07039 Level 2 Est. Patient 15:34:57 [employer] ERG[employer]OMIST Alina Castaneda MD [facility] [place]-77451 Level 3 Est. Patient 12:17:04 [employer]IST Alina Castaneda MD [facility] [place]-68601 Level 3 Est. Patient 09:18:18 [employer]IST [facility] CPT-25323 Level 2 Est. Patient 21:50:24 CDT Alina Castaneda MD [facility] [place]-50507 Level 3 Est. Patient 09:17:28 CDT [facility]-16594 Level 4 Est. Patient 18:54:02 CDT Alina Castaneda MD [facility] [place]-28835 Level 3 Est. Patient 10:47:10 CDT Alina Castaneda MD [facility] [place]-10607 Level 3 Est. Patient 09:22:20 CDT [facility] CPT-67043 Level 3 Est. Patient 16:39:43 CDT [facility] CPT-26372 Level 3 Est. Patient 16:05:16 CDT Alina Castaneda MD [facility] [place]-42045 Level 3 Est. Patient 00:29:15 CDT Alina Castaneda MD [facility] [place]-06770 Level 3 Est. Patient 10:49:22 [employer]IST [facility]-38042 Level 3 Est. Patient 21:30:19 [employer]OMIST Alina Castaneda MD [facility] [place]-22894 Level 4 Est. Patient 17:04:11 [employer] ERG[employer]OMIST [facility] [place]49022 Level 3 Est. Patient 15:34:11 [employer] ER[employer]IST [facility] [place]-62847 Level 2 Est. Patient 12:51:58 [employer]OMIST Alina Castaneda MD PhD [facility] CPT-65990 Level 3 Est. Patient 13:20:01 [employer]IST Alina Castaneda MD PhD [facility] CPT-16117 Level 3 Est. Patient 09:23:35 CDT Alina Castaneda MD PhD [facility] Procedures Code Procedure Name Date Entry Date Standard Description CPT-59574 HGBA1C - LAB USE ONLY 09:30:27 [employer]IST CPT-93845 BMP - LAB USE ONLY 09:30:27 [employer]IST CPT-20417 Venipuncture Draw Fee 09:30:26 [employer]IST CPT-TCMM Transitional Care Mgmt-Moderate 10:25:31 CDT CPT-41857 Bladder Scan 14:34:53 CDT CPT-31784 Bladder Scan 14:39:01 [employer]IST CPT-TCMM Transitional Care Mgmt-Moderate 10:30:19 [employer]IST CPT-90476 Bladder Scan 12:36:44 CDT CPT-48675 Bladder Scan 21:54:06 CDT CPT-G0008 Administration of Influenza Virus Vaccine 13:05:26 CDT CPT-74061 Fluzone Quadrivalent Intramuscular Suspension 0.5 ML 13: 05:26 CDT CPT-84885 Administration single or combination vaccine inc oral 11 :49:51 CDT CPT-68137 Pneumovax 11:49:51 CDT CPT-53670 Ribs unilateral 2V 12:37:22 [employer]IST CPT-31494 Chest 2V Frontal and Lat 17:15:26 CDT CPT-96275 Abx/Therapy Injection 18:54:02 CDT CPT-J0696 Rocephin 1000 mg (Ceftriaxone) 16:00:32 CDT CPT-37631 Chest 2V Frontal and Lat 15:26:45 CDT CPT-68825 Chest 2V Frontal and Lat 10:23:27 CDT CPT-13405 Venipuncture Draw Fee 10:11:00 CDT CPT-48170 Administration single or combination vaccine inc oral 11 :56:38 CDT CPT-53309 Influenza split virus > age 3 11:56:38 CDT CPT-60399 Venipuncture Draw Fee 08:49:54 [employer] ERGONOMIST CPT-62908 EKG Trac and Interp 17:54:19 [employer] ERGONOMIST
--- OUTSIDE RECORDS SUMMARY | 2018-07-02 18:39 | XMS REPORT | Clinical Summary ---
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 Active Alina Castaneda MD PhD Recurrent isolated sleep paralysis SPECIAL SCREENING FOR MALIGNANT NEOPLASM OF PROSTATE V76.44 Resolved Alina Castaneda MD PhD Screening for malignant neoplasms of prostate Hypoglycemia 251.2 Resolved Alina Castaneda MD PhD Hypoglycemia, unspecified Diabetes mellitus, type II 250.00 Active Zaineh Gurdeepajayari SEARCH CONSULTANT Diabetes mellitus without mention of complication, type [...] of tongue and floor of mouth, uncomplicated DIABETES, TYPE 2 ICD-250.00 Inactive Alina Castaneda [...] SIDED ICD-786.50 Inactive Alina Castaneda MD PhD HYPERTENSION ICD-401.9 Inactive Alina Castaneda MD PhD WOUND, OPEN, NOSE ICD-873.20 Inactive Alina Castaneda MD PhD DIABETIC HYPOGLYCEMIA, [...] STRP check blood sugars 3x/day GLUCOSE BLOOD 76547164751 Active Maljohn Ziglari SEARCH CONSULTANT Active ACCU-CHEK ROSA UZMA Use device to check blood sugars BLOOD GLUCOSE MONITORING SUPPL 85231393174 No Longer Active Mallashondaeh Ziglari SEARCH CONSULTANT Active ACCU-CHEK ROSA INVITR STRP use strips with device to check blood sugars 3 times daily GLUCOSE BLOOD 34778767268 No Longer Active Mallashondaeh 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 SEARCH CONSULTANT Active VERAPAMIL HCL ER 180 MG ORAL CR-TABS 1 pill by mouth twice daily, for migraine prevention VERAPAMIL HCL 72776126434 Active Alina Castaneda MD PhD Active CYCLOBENZAPRINE HCL 10 MG TABS 1 tablet by mouth three times daily, scheduled CYCLOBENZAPRINE HCL 67943234430 No Longer Active Alina Castaneda MD PhD Active HUMALOG 100 UNIT/ML SOLN Take 20 units with breakfast, 10u with lunch and suppetr. INSULIN LISPRO (HUMAN) 67089742570 No Longer Active Alina Castaneda MD PhD Active TRUETEST TEST STRP check sugars 4x/day GLUCOSE BLOOD 06803526626 No Longer Active Alina Castaneda MD PhD Active MORPHINE SULFATE 30 MG TABS 1 pill by mouth twice daily, for pain MORPHINE SULFATE 46647663956 Active Alina Castaneda MD PhD Active ACYCLOVIR 400 MG ORAL TABS 1 pill three times daily x 5 days, for cold sore outbreak ACYCLOVIR 77972774390 No Longer Active Alina Castaneda MD PhD Active PENICILLIN V POTASSIUM 500 MG TABS 1 pill by mouth three times daily PENICILLIN V POTASSIUM 00837557951 No Longer Active Alina Castaneda MD PhD Active LATUDA 80 MG TABS 1 tab by mouth every evening LURASIDONE HCL 63240819636 Active Alina Castaneda MD PhD Active UROXATRAL 10 MG CV95I-CLI Take 1 tablet by mouth daily ALFUZOSIN HCL 91903157806 No Longer Active Alina Castaneda MD PhD Active THIOTHIXENE 5 MG CAPS by mouth twice a day THIOTHIXENE 09082083419 No Longer Active Alina Castaneda MD PhD Active ZYPREXA 7.5 MG TABS 1 at HS OLANZAPINE 59792738134 No Longer Active Alina Castaneda MD PhD Active LEVEMIR 100 UNIT/ML SOLN Take 70 u at 7-8pm INSULIN DETEMIR 41238470179 Active Maliheh Ziglari SEARCH CONSULTANT Active BD INSULIN SYRINGE 28G X 1/2" 1 ML MISC 1 four times per day INSULIN SYRINGE-NEEDLE U-100 85243733334 Active Mallashondaeh Ziglari SEARCH CONSULTANT Active TOLTERODINE TARTRATE 2 MG TABS 1 pill twice daily, for bladder TOLTERODINE TARTRATE 95783322169 Active Alina Castaneda MD PhD Active DETROL LA 4 MG IZ66M-PVO Take 1 tablet by mouth daily TOLTERODINE TARTRATE 65991171729 No Longer Active Alina Castaneda MD PhD Active HYDROCODONE-ACETAMINOPHEN 5-325 MG TABS 2 tabs by mouth three times daily as needed for pain HYDROCODONE-ACETAMINOPHEN 05575084845 Active Alina Castaneda MD PhD Active TERESE CONTOUR TEST STRP monitor blood sugars 3x/day GLUCOSE BLOOD 42154667127 No Longer Active Alina Castaneda MD PhD Active EQL TRUETEST TEST STRP Test blood sugar TID GLUCOSE BLOOD 77174772115 No Longer Active Alina Castaneda MD PhD Active FLUTICASONE PROPIONATE 50 MCG/ACT SUSP 2 sprays each nostril qDay x 30 days FLUTICASONE PROPIONATE 22131376943 No Longer Active Alina Castaneda MD PhD Active IBUPROFEN 200 MG TABS 1 Q 6 hr. PRN IBUPROFEN 00859944026 No Longer Active Alina Castaneda MD PhD Active NIACIN ER 500 MG CR-TABS 4 qHS (for triglycerides) NIACIN 88459470373 No Longer Active Alina Castaneda MD PhD Active ALFUZOSIN HCL ER 10 MG [id number]-AQM 1 tablet daily ALFUZOSIN HCL 01357556450 Active Vanessa Hickey MD Active CLONAZEPAM 1 MG TABS 1 pill by mouth three times daily CLONAZEPAM 00941448387 Active Alina Castaneda MD PhD Active LOVAZA 1 GM CAPS 4 daily (for triglycerides) IDEBY-7-TRFZ ETHYL ESTERS 53949147799 Active Alina Castaneda MD PhD Active SAPHRIS 5 MG SUBL by mouth twice a day ASENAPINE MALEATE 25432367127 No Longer Active Maliheh Ziglari SEARCH CONSULTANT Active ACETAMINOPHEN 500 MG TABS 2 Q 6 hr. PRN ACETAMINOPHEN 48376921959 No Longer Active Maliheh Ziglari SEARCH CONSULTANT Active ORPHENADRINE CITRATE ER 100 MG [id number]-YJT 1 every 12 hr. as needed ORPHENADRINE CITRATE 00535784351 No Longer Active Alina Castaneda MD PhD Active NIACIN CR 500 MG CR-TABS 2 qHS NIACIN 83238410879 No Longer Active Alina Castaneda MD PhD Active AMOXICILLIN 500 MG CAPS 2 po BID x 10 days AMOXICILLIN 95101673036 No Longer Active Alina Castaneda MD PhD Active HYDROCODONE-ACETAMINOPHEN 7.5-325 MG TABS 1 four times a day as needed for pain HYDROCODONE-ACETAMINOPHEN 48361247912 No Longer Active Alina Castaneda MD PhD Active METFORMIN HCL ER 500 MG LO55M-TBX Take three tablets by mouth everyday METFORMIN HCL 11908847504 Active Marvel MARROQUIN Active DOXEPIN HCL 10 MG CAPS Take 1 tablet by mouth daily DOXEPIN HCL 99396126136 No Longer Active Salina Han A Active NAVANE 10 MG CAPS 1/2 tablet twice a day THIOTHIXENE No Longer Active Salina Han A Active CYCLOBENZAPRINE HCL 10 MG TABS 1/2 tablet by mouth every 8 hours as needed for muscle spasms CYCLOBENZAPRINE HCL 21000203898 No Longer Active Alina Castaneda MD PhD Active BACTROBAN 2 % CREAM apply to ear and nose twice daily MUPIROCIN CALCIUM 65805808434 No Longer Active Alina Castaneda MD PhD Active HYDROCODONE-ACETAMINOPHEN 5-325 MG TABS take one tablet by mouth every four hours as needed for pain HYDROCODONE-ACETAMINOPHEN 31979801333 No Longer Active Alina Castaneda MD PhD Active ZOLPIDEM TARTRATE 10 MG TABS take at bedtime ZOLPIDEM TARTRATE 01344538473 Active Alina Castaneda MD PhD Active ZYPREXA 5 MG TABS take one tablet by mouth every evening OLANZAPINE 19658121737 No Longer Active Alina Castaneda MD PhD Active ALBUTEROL SULFATE 0.083 % NEBU SOLN one vial per nebulizer TID and PRN cough/ soa ALBUTEROL SULFATE 25502729742 No Longer Active Alina Castaneda MD PhD Active GUAIFENESIN 600 MG DI90S-OSS 1 tablet by mouth twice daily if needed for cough GUAIFENESIN 48174619765 No Longer Active Marvel MARROQUIN Active AZITHROMYCIN 500 MG SOLR 1 po q day AZITHROMYCIN 01214937184 No Longer Active Alina Castaneda MD PhD Active METOPROLOL SUCCINATE 100 MG IZ33K-DJS 1 by mouth daily for blood pressure METOPROLOL SUCCINATE 91173630569 Active Alina Castaneda MD PhD Active PROMETHAZINE-CODEINE 6.25-10 MG/5ML SYRP 1 tsp po q 6 hours prn cough PROMETHAZINE-CODEINE 65621623615 No Longer Active Alina Castaneda MD PhD Active CEFDINIR 300 MG CAPS by mouth twice a day CEFDINIR 79934872031 No Longer Active Alina Castaneda MD PhD Active METFORMIN HCL 500 MG AF07L-OPM Take 3 tablets by mouth everyday METFORMIN HCL 99541683637 No Longer Active Alina Castaneda MD PhD Active LEVEMIR 100 UNIT/ML SOLN 90 units SQ qHS INSULIN DETEMIR 81281005676 No Longer Active Marvel MARROQUIN Active TOPROL XL 100 MG FI32O-FTF 1 @ HS METOPROLOL SUCCINATE 56983943900 No Longer Active Marvel MARROQUIN Active ALLOPURINOL 300 MG TABS Take one by mouth daily ALLOPURINOL 83844144356 Active Alina Castaneda MD PhD Active ZYPREXA 10 MG TABS Take one by mouth daily OLANZAPINE 20013003198 No Longer Active Alina Castaneda MD PhD Active NOVOLOG 100 UNIT/ML SOLN 40 units with every meal INSULIN ASPART 50805580266 No Longer Active Alina Castaneda MD PhD Active VERAPAMIL HCL CR 120 MG TAB CR 1 qPM VERAPAMIL HCL 42020029561 No Longer Active Salina Han [facility] Active ZYPREXA 15 MG TABS Take 1 tablet by mouth daily OLANZAPINE 32926948597 No Longer Active Marvel MARROQUIN Active LISINOPRIL 20 MG TABS 1 BID LISINOPRIL 98102705257 Active Alina Castaneda MD PhD Active ALBUTEROL SULFATE (2.5 MG/3ML) 0.083% NEBU 1 neb tid and prn cough ALBUTEROL SULFATE 20753774846 No Longer Active Alina Castaneda MD PhD Active FLUVOXAMINE MALEATE 100 MG TABS Take one (1) tablet by mouth am, 1/2 at noon, 1 pm FLUVOXAMINE MALEATE 67740056322 Active Alina Castaneda MD PhD Active TRAVATAN Z 0.004 % SOLN 1 gtt each eye daily TRAVOPROST 43718829315 Active CRYSTAL Suarez Active LANTUS 100 UNIT/ML SOLN 60 units sq q hs INSULIN GLARGINE 83013030183 No Longer Active CRYSTAL Suarez Active ALBUTEROL SULFATE (2.5 MG/3ML) 0.083% NEBU 1 neb tid and prn cough ALBUTEROL SULFATE (2.5 MG/3ML) 0.083% NEBU 239125 ALBUTEROL SULFATE Inactive ZYPREXA 15 MG TABS Take 1 tablet by mouth daily ZYPREXA 15 MG TABS 401638 OLANZAPINE Inactive VERAPAMIL HCL CR 120 MG TAB CR 1 qPM VERAPAMIL HCL CR 120 MG TAB CR VERAPAMIL HCL Inactive ZYPREXA 10 MG TABS Take one by mouth daily ZYPREXA 10 MG TABS 245150 OLANZAPINE Inactive TOPROL XL 100 MG [id number]-ZBA 1 @ HS TOPROL XL 100 MG VX12L-XSX METOPROLOL SUCCINATE Inactive LEVEMIR 100 UNIT/ML SOLN 90 units SQ qHS LEVEMIR 100 UNIT/ML SOLN INSULIN DETEMIR Inactive PROMETHAZINE-CODEINE 6.25-10 MG/5ML SYRP 1 tsp po q 6 hours prn cough PROMETHAZINE-CODEINE 6.25-10 MG/5ML SYRP 538652 PROMETHAZINE- CODEINE Inactive GUAIFENESIN 600 MG BQ91U-GDW 1 tablet by mouth twice daily if needed for cough GUAIFENESIN 600 MG OY99Q-TES GUAIFENESIN Inactive ALBUTEROL SULFATE 0.083 % NEBU SOLN one vial per nebulizer TID and PRN cough/ soa ALBUTEROL SULFATE 0.083 % NEBU SOLN 969370 ALBUTEROL SULFATE Inactive ZYPREXA 5 MG TABS take one tablet by mouth every evening ZYPREXA 5 MG TABS 223353 OLANZAPINE Inactive HYDROCODONE-ACETAMINOPHEN 5-325 MG TABS take one tablet by mouth every four hours as needed for pain HYDROCODONE-ACETAMINOPHEN 5-325 MG TABS 971267 HYDROCODONE-ACETAMINOPHEN Inactive BACTROBAN 2 % CREAM apply to ear and nose twice daily BACTROBAN 2 % CREAM 895702 MUPIROCIN CALCIUM Inactive CYCLOBENZAPRINE HCL 10 MG TABS 1/2 tablet by mouth every 8 hours as needed for muscle spasms CYCLOBENZAPRINE HCL 10 MG TABS 891293 CYCLOBENZAPRINE HCL Inactive NAVANE 10 MG CAPS 1/2 tablet twice a day NAVANE 10 MG CAPS THIOTHIXENE Inactive DOXEPIN HCL 10 MG CAPS Take 1 tablet by mouth daily DOXEPIN HCL 10 MG CAPS 9298854 DOXEPIN HCL Inactive HYDROCODONE-ACETAMINOPHEN 7.5-325 MG TABS 1 four times a day as needed for pain HYDROCODONE-ACETAMINOPHEN 7.5-325 MG TABS 706968 HYDROCODONE-ACETAMINOPHEN Inactive NIACIN CR 500 MG CR-TABS 2 qHS NIACIN CR 500 MG CR- TABS NIACIN Inactive ORPHENADRINE CITRATE ER 100 MG OW49D-DBQ 1 every 12 hr. as needed ORPHENADRINE CITRATE ER 100 MG DO96X-XOI ORPHENADRINE CITRATE Inactive ACETAMINOPHEN 500 MG TABS 2 Q 6 hr. PRN ACETAMINOPHEN 500 MG TABS 369249 ACETAMINOPHEN Inactive SAPHRIS 5 MG SUBL by mouth twice a day SAPHRIS 5 MG SUBL ASENAPINE MALEATE Inactive NIACIN ER 500 MG CR-TABS 4 qHS (for triglycerides) NIACIN ER 500 MG CR-TABS NIACIN Inactive IBUPROFEN 200 MG TABS 1 Q 6 hr. PRN IBUPROFEN 200 MG TABS 492652 IBUPROFEN Inactive FLUTICASONE PROPIONATE 50 MCG/ACT SUSP 2 sprays each nostril qDay x 30 days FLUTICASONE PROPIONATE 50 MCG/ACT SUSP 830791 FLUTICASONE PROPIONATE Inactive EQL TRUETEST TEST STRP Test blood sugar TID EQL TRUETEST TEST STRP GLUCOSE BLOOD Inactive TERESE CONTOUR TEST STRP monitor blood sugars 3x/day TERESE CONTOUR TEST STRP GLUCOSE BLOOD Inactive DETROL LA 4 MG XS85I-GPA Take 1 tablet by mouth daily DETROL LA 4 MG BE18V-LJP TOLTERODINE TARTRATE Inactive ZYPREXA 7.5 MG TABS 1 at HS ZYPREXA 7.5 MG TABS 324937 OLANZAPINE Inactive THIOTHIXENE 5 MG CAPS by mouth twice a day THIOTHIXENE 5 MG CAPS 433903 THIOTHIXENE Inactive UROXATRAL 10 MG BC52T-AYH Take 1 tablet by mouth daily UROXATRAL 10 MG HC40U-HRN ALFUZOSIN HCL Inactive ACYCLOVIR 400 MG ORAL TABS 1 pill three times daily x 5 days, for cold sore outbreak ACYCLOVIR 400 MG ORAL TABS 675040 ACYCLOVIR Inactive TRUETEST TEST STRP check sugars 4x/day TRUETEST TEST STRP GLUCOSE BLOOD Inactive HUMALOG 100 UNIT/ML SOLN Take 20 units with breakfast, 10u with lunch and suppetr. HUMALOG 100 UNIT/ML SOLN INSULIN LISPRO ( HUMAN) Inactive CYCLOBENZAPRINE HCL 10 MG TABS 1 tablet by mouth three times daily, scheduled CYCLOBENZAPRINE HCL 10 MG TABS 481775 CYCLOBENZAPRINE HCL Inactive ACCU-CHEK ROSA INVITR STRP use strips with device to check blood sugars 3 times daily ACCU-CHEK ROSA INVITR STRP GLUCOSE BLOOD Inactive ACCU-CHEK ROSA UZMA Use device to check blood sugars ACCU-CHEK ROSA UZMA BLOOD GLUCOSE MONITORING SUPPL Inactive CEFDINIR 300 MG CAPS by mouth twice a day CEFDINIR 300 MG CAPS 384187 CEFDINIR Inactive AZITHROMYCIN 500 MG SOLR 1 po q day AZITHROMYCIN 500 MG SOLR 436912 AZITHROMYCIN Inactive AMOXICILLIN 500 MG CAPS 2 po BID x 10 days AMOXICILLIN 500 MG CAPS 911848 AMOXICILLIN Inactive PENICILLIN V POTASSIUM 500 MG TABS 1 pill by mouth three times daily PENICILLIN V POTASSIUM 500 MG TABS 180049 PENICILLIN V POTASSIUM Inactive Immunizations Vaccine Administration [...] Fluvirin, Fluarix, Agriflu(>=18 yo)) Fluzone (>3 yrs.) [[id number]] Influenza, seasonal, injectable pneumococcal immunization administered Pneumovax [...] HGBA1C - Chemistry sodium, serum 130 mmol/L 115-058 0236/06/09 potassium, serum 4.0 mmol/L 3.5-5.2 chloride, serum 92 mmol/L 98-107 carbon dioxide, venous blood 22.1 mmol/L 21.0-32.0 blood glucose 60 mg/dL 65-110 calcium, serum 9.5 mg/dL 8.5-10.1 urea nitrogen, blood 14 mg/dL 7-18 creatinine, serum 1.30 mg/dL 0.60-1.30 hemoglobin A1C, blood, as % of total hemoglobin 6.0 % 4.3-6.0 sodium, serum 131 mmol/L 955-671 6012/12/30 urea nitrogen, blood 12 mg/dL 7-18 creatinine, [...] 6.0 mg/dL 2.6-7.2 sodium, serum 130 mmol/L 571-218 1742/05/01 potassium, serum 5.2 mmol/L 3.5-5.2 chloride, serum [...] 0.40 mg/dL 0.00-1.00 cholesterol, serum 151 mg/dL 639-089 0621/05/01 triglyceride, serum, fasting 356 mg/dL 30-200 HDL [...] % 11.6-14.8 platelet count 304 10^3/MM^3 10*3/mm3 849-748 3561/05/01 mean corpuscular volume, RBC 87 fL 80-97 [...] 4.1 mmol/L 3.5-5.2 sodium, serum 127 mmol/L 433-587 3829/10/27 blood glucose 100 mg/dL 65-110 urea nitrogen, [...] mg/dL Encounters Code Encounter Date Provider Facility CPT-15193 Level 2 Est. Patient 12:52:14 CDT Alina Castaneda MD [facility] CPT-68155 Level 3 Est. Patient 11:51:18 [facility] Alina Castaneda MD [facility] CPT-66798 Level 3 Est. Patient 10:09:22 [facility] Alina Castaneda MD [facility]-66934 Level 3 Est. Patient 14:36:26 [facility] CPT-87574 Level 3 Est. Patient 13:34:47 [facility] Alina Castaneda MD [facility]-04470 Level 3 Est. Patient 19:52:08 [facility] Alina Castaneda MD [facility] CPT-85768 Level 3 Est. Patient 10:01:51 [facility] CPT-03213 Level 3 Est. Patient 21:54:06 CDT Vanessa Hickey MD [facility]-87091 Level 3 Est. Patient 08:54:46 CDT Alina Castaneda MD [facility]-40734 Level 3 Est. Patient 09:32:11 CDT [facility] Araceli [facility] CPT-33409 Level 3 Est. Patient 12:02:49 CDT Alina Castaneda MD [facility]-42529 Level 3 Est. Patient 19:17:33 CDT Alina Castaneda MD [facility]87663 Level 3 Est. Patient 13:19:10 CDT Marvel Araceli [facility]-98738 Level 3 Est. Patient 08:20:05 CDT Alina Castaneda MD [facility]53300 Level 3 Est. Patient 15:17:18 CDT Alina Castaneda MD [facility]09712 Level 3 Est. Patient 14:25:36 [facility] Marvel Gurdeepajayestela [facility]-26748 Level 3 Est. Patient 10:09:15 [facility] Est[facility] Patient 21:28:43 CDT Alina Castaneda MD [facility]-75135 Level 3 Est. Patient [facility]:20:[facility] 4 Est. Patient 19:08:12 CDT Alina Castaneda MD [facility]-86887 Level 3 Est. Patient 15:06:39 CDT Marvel Charles [facility]-12323 Level 4 Est. Patient 17:48:15 CDT Alina Castaneda MD [facility]-91056 Level 3 Est. Patient 14:53:49 CDT Alina Castaneda MD [facility]-61430 Level 3 Est. Patient 09:35:16 CDT Alina Castaneda MD [facility]-14189 Level 3 Est. Patient 12:23:22 CDT Alnia Castaneda MD [facility]-00026 Level 3 Est. Patient 16:19:15 CDT Alina Castaneda MD [facility]-98670 Level 3 Est. Patient 21:39:56 [facility] Alina Castaneda MD [facility]88873 Level 4 Est. Patient 14:12:56 [facility] Alina Castaneda MD [facility]-13047 Level 2 Est. Patient 15:34:57 [facility] Alina Castaneda MD [facility]-21145 Level 3 Est. Patient 12:17:04 [facility] Alina Castaneda MD [facility]-02790 Level 3 Est. Patient 09:18:18 [facility] Charles [facility]-01166 Level 2 Est. Patient 21:50:24 CDT Alina Castaneda MD [facility]-23864 Level 3 Est. Patient 09:17:28 CDT Marvel Charles [facility]-52740 Level 4 Est. Patient 18:54:02 CDT Alina Castaneda MD [facility]-23778 Level 3 Est. Patient 10:47:10 CDT Alina Castaneda MD [facility]-35020 Level 3 Est. Patient 09:22:20 CDT Marvel Charles [facility]-93780 Level 3 Est. Patient 16:39:43 CDT Marvel Charles [facility]-11266 Level 3 Est. Patient 16:05:16 CDT Alina Castaneda MD [facility]72501 Level 3 Est. Patient 00:29:15 CDT Alina Castaneda MD [facility] CPT-19231 Level 3 Est. Patient 10:49:22 [facility] CPT-55908 Level 3 Est. Patient 21:30:19 [facility] Alina Castaneda MD [facility] CPT-36130 Level 4 Est. Patient 17:04:11 [facility] CPT-61376 Level 3 Est. Patient 15:34:11 [facility] CPT-06139 Level 2 Est. Patient 12:51:58 [facility] Alina Castaneda MD [facility] CPT-87597 Level 3 Est. Patient 13:20:01 [facility] Alina Castaneda MD [facility] CPT-51523 Level 3 Est. Patient 09:23:35 CDT Alina Castaneda MD [facility] Procedures Code Procedure Name Date Entry Date Standard Description CPT-98285 Bladder Scan 21:54:06 CDT CPT-G0008 Administration of Influenza Virus Vaccine 13:05:26 CDT CPT-07657 Fluzone Quadrivalent Intramuscular Suspension 0.5 ML 13: 05:26 CDT CPT-79826 Administration single or combination vaccine inc oral 11 :49:51 CDT CPT-26656 Pneumovax 11:49:51 CDT CPT-00669 Ribs unilateral 2V 12:37:22 [facility] CPT-27050 Chest 2V Frontal and Lat 17:15:26 CDT CPT-54971 Abx/Therapy Injection 18:54:02 CDT CPT-J0696 Rocephin 1000 mg (Ceftriaxone) 16:00:32 CDT CPT-48122 Chest 2V Frontal and Lat 15:26:45 CDT CPT-80516 Chest 2V Frontal and Lat 10:23:27 CDT CPT-77960 Venipuncture Draw Fee 10:11:00 CDT CPT-48938 Administration single or combination vaccine inc oral 11 :56:38 CDT CPT-74255 Influenza split virus > age 3 11:56:38 CDT CPT-36948 Venipuncture Draw Fee 08:49:54 [facility] CPT-55361 EKG Trac and Interp 17:54:19 [facility]
--- OUTSIDE RECORDS SUMMARY | 2018-07-02 18:42 | XMS REPORT | Clinical Summary ---
Author Author Admin, TERELL Organization [facility] Address Unknown Phone Unavailable Allergies, Adverse Reactions, 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 Erazo [facility] Benign paroxysmal positional vertigo Vertigo, benign paroxysmal position 386.11 Inactive Mima Erazo [facility] Benign paroxysmal positional vertigo High-risk sexual behavior V69.2 Active Alina Castaneda MD PhD High-risk sexual behavior Erectile dysfunction 302.72 Active Alina Castaneda MD PhD Psychosexual dysfunction with inhibited sexual excitement Constipation 564.00 Active Alina Castaneda MD PhD Constipation, unspecified Skin lesion 709.9 Active Alina Castaneda MD PhD Unspecified disorder of skin and subcutaneous tissue Malaise and fatigue 780.79 Active Cherelle Speaks [facility] Other malaise and fatigue Diarrhea 787.91 Active Cherelle Speaks [facility] Diarrhea PHARYNGITIS 462 Active Cherelle Speaks [facility] Acute pharyngitis Colitis 558.9 Active Mima Erazo [facility] Other and unspecified noninfectious gastroenteritis and colitis WOUND, OPEN, NOSE ICD-873.20 Inactive Alina Castaneda MD PhD DIABETES, TYPE 2 ICD-250.00 Inactive Alina Castaneda MD PhD HYPERTENSION ICD-401.9 Inactive Alina Castaneda MD PhD URI ICD-465.9 Inactive Alina Castaneda MD PhD CHEST PAIN ICD-786.50 Inactive Alina Castaneda MD PhD FH STROKE ICD-V17.1 Inactive Marvel Charles STERILE TECH FATIGUE ICD-780.79 Inactive Alina Castaneda MD [...] Castaneda MD PhD Hypoglycemia ICD-251.2 Inactive Alina Castnaeda MD PhD Dizziness ICD-780.4 Inactive Alina Castaneda [...] SQ each evening, for diabetes INSULIN DETEMIR 31561498156 Active Salina ROJAS Active TRUEPLUS LANCETS 30G MISC 3 a day LANCETS 30373623967 Active Marvel MENDOZAP Active TOLTERODINE TARTRATE 2 MG TABS 1 pill twice daily, for bladder TOLTERODINE TARTRATE 08792111460 No Longer Active Vanessa Hickey MD Active AMITIZA 24 MCG ORAL CAPS Take one capsule BID for constipation. LUBIPROSTONE 21574226685 No Longer Active Vanessa Hickey MD Active LOMOTIL 2.5-0.025 MG ORAL TABS take 1-2 tabs PO after each stool, no more than 8 in 24 hours DIPHENOXYLATE-ATROPINE 88546513772 Active Garce ROJAS Active FLUVOXAMINE MALEATE 100 MG ORAL TABS take one tab every AM et HS, and take 1/ 2 tab at noon FLUVOXAMINE MALEATE 23602031363 Active Grace ROJAS Active METOPROLOL SUCCINATE 100 MG [id number]-LSY 1 by mouth daily for blood pressure METOPROLOL SUCCINATE 73929290957 No Longer Active Grace Nelsonb RMA Active METFORMIN HCL ER 500 MG CG09H-NLR Take three tablets by mouth everyday METFORMIN HCL 24994459635 No Longer Active Grace Azam RMA Active LOVAZA 1 GM CAPS 4 daily (for triglycerides) OMEGA-3- ACID ETHYL ESTERS 33294784500 No Longer Active Grace Azam RMA Active TRAZODONE HCL 100 MG ORAL TABS 1 tab by mouth for sleep TRAZODONE HCL 82986841839 No Longer Active Grace Azam RMA Active NOVOFINE 32G X 6 MM MISC use one four times per day INSULIN PEN NEEDLE 66634295397 No Longer Active Grace Azam RMA Active BACTROBAN 2 % CREAM Apply to affected area BID for up to 10 days MUPIROCIN CALCIUM 72966805513 No Longer Active Grace Azam RMA Active ZOFRAN 4 MG TABS 1 po q4hr PRN [place] ONDANSETRON HCL 82086716850 Active Salina Han RMA Active KEFLEX 500 MG CAP 1 po BID x 7 days CEPHALEXIN 23292239067 No Longer Active Cherelle Speaks [facility] Active FLUVOXAMINE MALEATE 100 MG TABS Take one (1) tablet by mouth am, 1/2 at noon FLUVOXAMINE MALEATE 55224824901 No Longer Active Mima Erazo [facility] Active CORICIDIN HBP CONGESTION/COUGH 10-200 MG ORAL CAPS Take as directed on box as needed for cold/flu symptoms DEXTROMETHORPHAN-GUAIFENESIN 48173686060 Active Cherelle Speaks [facility] Active OMEGA-3 300 MG ORAL CAPS 4 caps by mouth daily OMEGA-3 FATTY ACIDS 49438102828 Active Cherelle Speaks [facility] [facility] Active FLUVOXAMINE MALEATE 100 MG ORAL TABS Take 1/2 tab at noon FLUVOXAMINE MALEATE 23872278793 No Longer Active Cherelle Avila [facility] Active [facility] LUBRICANT EYE DROPS 0.4-0.3 % OPHTH SOLN POLYETHYL GLYCOL-PROPYL GLYCOL 14867807219 Active Mima Erazo [facility] Active CLONAZEPAM 1 MG TABS 1/2 pill by mouth three times daily CLONAZEPAM 15680943137 Active Alina Castaneda MD PhD Active MIRALAX POWD 17g by mouth daily, for constipation POLYETHYLENE GLYCOL 3350 84763330367 Active Alina Castaneda MD PhD Active HYDROCODONE-ACETAMINOPHEN 5-325 MG TABS 2 tabs by mouth three times daily for pain HYDROCODONE-ACETAMINOPHEN 59233367952 Active Mima Erazo [facility] Active HUMALOG KWIKPEN 100 UNIT/ML SC SOPN 20 units with breakfast, 10 units with lunch, 10 units with dinner, for diabetes INSULIN LISPRO (HUMAN ) 61000533129 Active Alina Castaneda MD PhD Active LATUDA 120 MG ORAL TABS 1 pill by mouth nightly LURASIDONE HCL 50450872765 Active Alina Castaneda MD PhD Active COLACE 100 MG CAPS 1 pill by mouth twice daily, for constipation DOCUSATE SODIUM 48170629760 Active Alina Castaneda MD PhD Active TRUETEST TEST STRP check blood sugars 3x/day GLUCOSE BLOOD 72593054995 Active Marvel Thurstonari STERILE TECH Active ACCU-CHEK ROSA UZMA Use device to check blood sugars BLOOD GLUCOSE MONITORING SUPPL 46582672229 No Longer Active Marvel Mackenzieglari LOPEZ Active ACCU-CHEK ROSA INVITR STRP use strips with device to check blood sugars 3 times daily GLUCOSE BLOOD 62267697081 No Longer Active Marvel MENDOZAP Active VERAPAMIL HCL ER 180 MG ORAL CR-TABS 1 pill by mouth twice daily, for migraine prevention VERAPAMIL HCL 70214515664 Active Alina Castaneda MD PhD Active CYCLOBENZAPRINE HCL 10 MG TABS 1 tablet by mouth three times daily, scheduled CYCLOBENZAPRINE HCL 40794259165 No Longer Active Alina Castaneda MD PhD Active HUMALOG 100 UNIT/ML SOLN Take 20 units with breakfast, 10u with lunch and suppetr. INSULIN LISPRO (HUMAN) 99998742358 No Longer Active Alina Castaneda MD PhD Active TRUETEST TEST STRP check sugars 4x/day GLUCOSE BLOOD 58048058452 No Longer Active Alina Castaneda MD PhD Active MORPHINE SULFATE 30 MG TABS 1 pill by mouth twice daily, for pain MORPHINE SULFATE 88137065357 Active Mima Erazo [facility] Active ACYCLOVIR 400 MG ORAL TABS 1 pill three times daily x 5 days, for cold sore outbreak ACYCLOVIR 59292063621 No Longer Active Alina Castaneda MD PhD Active PENICILLIN V POTASSIUM 500 MG TABS 1 pill by mouth three times daily PENICILLIN V POTASSIUM 13174035946 No Longer Active Alina Castaneda MD PhD Active UROXATRAL 10 MG JH65I-INI Take 1 tablet by mouth daily ALFUZOSIN HCL 98347246244 No Longer Active Alina Castaneda MD PhD Active THIOTHIXENE 5 MG CAPS by mouth twice a day THIOTHIXENE 34412672388 No Longer Active Alina Castaneda MD PhD Active ZYPREXA 7.5 MG TABS 1 at HS OLANZAPINE 67954801529 No Longer Active Alina Castaneda MD PhD Active BD INSULIN SYRINGE 28G X 1/2" 1 ML MISC 1 four times per day INSULIN SYRINGE-NEEDLE U-100 27992004698 Active [facility] Gurdeepglestela [facility] Active DETROL LA 4 MG [id number]-[id number] Take 1 tablet by mouth daily TOLTERODINE TARTRATE 96093830302 No Longer Active Alina Castaneda MD PhD Active TERESE CONTOUR TEST STRP monitor blood sugars 3x/day GLUCOSE BLOOD 07564473766 No Longer Active Alina Castaneda MD PhD Active EQL TRUETEST TEST STRP Test blood sugar TID GLUCOSE BLOOD 43550876419 No Longer Active Alina Castaneda MD PhD Active FLUTICASONE PROPIONATE 50 MCG/ACT SUSP 2 sprays each nostril qDay x 30 days FLUTICASONE PROPIONATE 75822604064 No Longer Active Alina Castaneda MD PhD Active IBUPROFEN 200 MG TABS 1 Q 6 hr. PRN IBUPROFEN 35302829876 No Longer Active Alina Castaneda MD PhD Active NIACIN ER 500 MG CR-TABS 4 qHS (for triglycerides) NIACIN 62749126694 No Longer Active Alina Castaneda MD PhD Active ALFUZOSIN HCL ER 10 MG KS11A-HRC 1 tablet daily ALFUZOSIN HCL 04613824099 Active Vanessa Hickey MD Active SAPHRIS 5 MG SUBL by mouth twice a day ASENAPINE MALEATE 72559296863 No Longer Active Maliheh Ziglari STERILE TECH Active ACETAMINOPHEN 500 MG TABS 2 Q 6 hr. PRN ACETAMINOPHEN 90035071543 No Longer Active Maliheh Ziglari STERILE TECH Active ORPHENADRINE CITRATE ER 100 MG JS78T-CGG 1 every 12 hr. as needed ORPHENADRINE CITRATE 01595338562 No Longer Active Alina Castaneda MD PhD Active NIACIN CR 500 MG CR-TABS 2 qHS NIACIN 82900438943 No Longer Active Alina Castaneda MD PhD Active AMOXICILLIN 500 MG CAPS 2 po BID x 10 days AMOXICILLIN 02777184209 No Longer Active Alina Castaneda MD PhD Active HYDROCODONE-ACETAMINOPHEN 7.5-325 MG TABS 1 four times a day as needed for pain HYDROCODONE-ACETAMINOPHEN 68272326184 No Longer Active Alina Castaneda MD PhD Active DOXEPIN HCL 10 MG CAPS Take 1 tablet by mouth daily DOXEPIN HCL 07803347448 No Longer Active Salina ROJAS Active NAVANE 10 MG CAPS 1/2 tablet twice a day THIOTHIXENE No Longer Active Salina ROBBINSA Active CYCLOBENZAPRINE HCL 10 MG TABS 1/2 tablet by mouth every 8 hours as needed for muscle spasms CYCLOBENZAPRINE HCL 38679212530 No Longer Active Alina Castaneda MD PhD Active BACTROBAN 2 % CREAM apply to ear and nose twice daily MUPIROCIN CALCIUM 66024547523 No Longer Active Alina Castaneda MD PhD Active HYDROCODONE-ACETAMINOPHEN 5-325 MG TABS take one tablet by mouth every four hours as needed for pain HYDROCODONE-ACETAMINOPHEN 19758683965 No Longer Active Alina Castaneda MD PhD Active ZOLPIDEM TARTRATE 10 MG TABS take at bedtime ZOLPIDEM TARTRATE 40143669652 Active Alina Castaneda MD PhD Active ZYPREXA 5 MG TABS take one tablet by mouth every evening OLANZAPINE 90199623951 No Longer Active Alina Castaneda MD PhD Active ALBUTEROL SULFATE 0.083 % NEBU SOLN one vial per nebulizer TID and PRN cough/ soa ALBUTEROL SULFATE 10446665151 No Longer Active Alina Castaneda MD PhD Active GUAIFENESIN 600 MG GO32Q-FZQ 1 tablet by mouth twice daily if needed for cough GUAIFENESIN 57177408265 No Longer Active Marvel MARROQUIN Active AZITHROMYCIN 500 MG SOLR 1 po q day AZITHROMYCIN 74517490299 No Longer Active Alina Castaneda MD PhD Active PROMETHAZINE-CODEINE 6.25-10 MG/5ML SYRP 1 tsp po q 6 hours prn cough PROMETHAZINE-CODEINE 96419963579 No Longer Active Alina Castaneda MD PhD Active CEFDINIR 300 MG CAPS by mouth twice a day CEFDINIR 58822315214 No Longer Active Alina Castaneda MD PhD Active METFORMIN HCL 500 MG XG74E-VHR Take 3 tablets by mouth everyday METFORMIN HCL 06696833547 No Longer Active Alina Castaneda MD PhD Active LEVEMIR 100 UNIT/ML SOLN 90 units SQ qHS INSULIN DETEMIR 44681290670 No Longer Active Marvel MARROQUIN Active TOPROL XL 100 MG ON51L-FOI 1 @ HS METOPROLOL SUCCINATE 25007002407 No Longer Active Marvel MARROQUIN Active ALLOPURINOL 300 MG TABS Take one by mouth daily ALLOPURINOL 16745932339 Active Alina Castaneda MD PhD Active ZYPREXA 10 MG TABS Take one by mouth daily OLANZAPINE 92362709902 No Longer Active Alina Castaneda MD PhD Active NOVOLOG 100 UNIT/ML SOLN 40 units with every meal INSULIN ASPART 28092487179 No Longer Active Alina Castaneda MD PhD Active VERAPAMIL HCL CR 120 MG TAB CR 1 qPM VERAPAMIL HCL 55026249703 No Longer Active Salina ROJAS Active ZYPREXA 15 MG TABS Take 1 tablet by mouth daily OLANZAPINE 82823812464 No Longer Active Marvel MARROQUIN Active LISINOPRIL 20 MG TABS 1 BID LISINOPRIL 40115743908 Active Alina Castaneda MD PhD Active ALBUTEROL SULFATE (2.5 MG/3ML) 0.083% NEBU 1 neb tid and prn cough ALBUTEROL SULFATE 99947021744 No Longer Active Alina Castaneda MD PhD Active TRAVATAN Z 0.004 % SOLN 1 gtt each eye daily TRAVOPROST 59072288556 Active CRYSTAL Suarez Active LANTUS 100 UNIT/ML SOLN 60 units sq q hs INSULIN GLARGINE 50423653429 No Longer Active CRYSTAL Suarez Active ALBUTEROL SULFATE (2.5 MG/3ML) 0.083% NEBU 1 neb tid and prn cough ALBUTEROL SULFATE (2.5 MG/3ML) 0.083% NEBU 232523 ALBUTEROL SULFATE Inactive ZYPREXA 15 MG TABS Take 1 tablet by mouth daily ZYPREXA 15 MG TABS 246619 OLANZAPINE Inactive VERAPAMIL HCL CR 120 MG TAB CR 1 qPM VERAPAMIL HCL CR 120 MG TAB CR VERAPAMIL HCL Inactive ZYPREXA 10 MG TABS Take one by mouth daily ZYPREXA 10 MG TABS 143839 OLANZAPINE Inactive TOPROL XL 100 MG FK42A-SNH 1 @ HS TOPROL XL 100 MG CE50A-NAR METOPROLOL SUCCINATE Inactive LEVEMIR 100 UNIT/ML SOLN 90 units SQ qHS LEVEMIR 100 UNIT/ML SOLN INSULIN DETEMIR Inactive PROMETHAZINE-CODEINE 6.25-10 MG/5ML SYRP 1 tsp po q 6 hours prn cough PROMETHAZINE-CODEINE 6.25-10 MG/5ML SYRP 989776 PROMETHAZINE- CODEINE Inactive GUAIFENESIN 600 MG VA25M-FZK 1 tablet by mouth twice daily if needed for cough GUAIFENESIN 600 MG SB86Y-VOH GUAIFENESIN Inactive ALBUTEROL SULFATE 0.083 % NEBU SOLN one vial per nebulizer TID and PRN cough/ soa ALBUTEROL SULFATE 0.083 % NEBU SOLN 878968 ALBUTEROL SULFATE Inactive ZYPREXA 5 MG TABS take one tablet by mouth every evening ZYPREXA 5 MG TABS 978372 OLANZAPINE Inactive HYDROCODONE-ACETAMINOPHEN 5-325 MG TABS take one tablet by mouth every four hours as needed for pain HYDROCODONE-ACETAMINOPHEN 5-325 MG TABS 443316 HYDROCODONE-ACETAMINOPHEN Inactive BACTROBAN 2 % CREAM apply to ear and nose twice daily BACTROBAN 2 % CREAM 160655 MUPIROCIN CALCIUM Inactive CYCLOBENZAPRINE HCL 10 MG TABS 1/2 tablet by mouth every 8 hours as needed for muscle spasms CYCLOBENZAPRINE HCL 10 MG TABS 809012 CYCLOBENZAPRINE HCL Inactive NAVANE 10 MG CAPS 1/2 tablet twice a day NAVANE 10 MG CAPS THIOTHIXENE Inactive DOXEPIN HCL 10 MG CAPS Take 1 tablet by mouth daily DOXEPIN HCL 10 MG CAPS 6826199 DOXEPIN HCL Inactive HYDROCODONE-ACETAMINOPHEN 7.5-325 MG TABS 1 four times a day as needed for pain HYDROCODONE-ACETAMINOPHEN 7.5-325 MG TABS 880933 HYDROCODONE-ACETAMINOPHEN Inactive NIACIN CR 500 MG CR-TABS 2 qHS NIACIN CR 500 MG CR- TABS NIACIN Inactive ORPHENADRINE CITRATE ER 100 MG [id number] 1 every 12 hr. as needed ORPHENADRINE CITRATE ER 100 MG FD99E-OZN ORPHENADRINE CITRATE Inactive ACETAMINOPHEN 500 MG TABS 2 Q 6 hr. PRN ACETAMINOPHEN 500 MG TABS 509466 ACETAMINOPHEN Inactive SAPHRIS 5 MG SUBL by mouth twice a day SAPHRIS 5 MG SUBL ASENAPINE MALEATE Inactive NIACIN ER 500 MG CR-TABS 4 qHS (for triglycerides) NIACIN ER 500 MG CR-TABS NIACIN Inactive IBUPROFEN 200 MG TABS 1 Q 6 hr. PRN IBUPROFEN 200 MG TABS 058232 IBUPROFEN Inactive FLUTICASONE PROPIONATE 50 MCG/ACT SUSP 2 sprays each nostril qDay x 30 days FLUTICASONE PROPIONATE 50 MCG/ACT SUSP 901266 FLUTICASONE PROPIONATE Inactive EQL TRUETEST TEST STRP Test blood sugar TID EQL TRUETEST TEST STRP GLUCOSE BLOOD Inactive TERESE CONTOUR TEST STRP monitor blood sugars 3x/day TERESE CONTOUR TEST STRP GLUCOSE BLOOD Inactive DETROL LA 4 MG WH47A-TLT Take 1 tablet by mouth daily DETROL LA 4 MG YK52C-YRJ TOLTERODINE TARTRATE Inactive ZYPREXA 7.5 MG TABS 1 at HS ZYPREXA 7.5 MG TABS 055375 OLANZAPINE Inactive THIOTHIXENE 5 MG CAPS by mouth twice a day THIOTHIXENE 5 MG CAPS 570089 THIOTHIXENE Inactive UROXATRAL 10 MG FP32A-CSC Take 1 tablet by mouth daily UROXATRAL 10 MG NG63P-LVV ALFUZOSIN HCL Inactive ACYCLOVIR 400 MG ORAL TABS 1 pill three times daily x 5 days, for cold sore outbreak ACYCLOVIR 400 MG ORAL TABS 176774 ACYCLOVIR Inactive TRUETEST TEST STRP check sugars 4x/day TRUETEST TEST STRP GLUCOSE BLOOD Inactive HUMALOG 100 UNIT/ML SOLN Take 20 units with breakfast, 10u with lunch and suppetr. HUMALOG 100 UNIT/ML SOLN INSULIN LISPRO ( HUMAN) Inactive CYCLOBENZAPRINE HCL 10 MG TABS 1 tablet by mouth three times daily, scheduled CYCLOBENZAPRINE HCL 10 MG TABS 247052 CYCLOBENZAPRINE HCL Inactive ACCU-CHEK ROSA INVITR STRP use strips with device to check blood sugars 3 times daily ACCU-CHEK ROSA INVITR STRP GLUCOSE BLOOD Inactive ACCU-CHEK ROSA UZMA Use device to check blood sugars ACCU-CHEK ROSA UZMA BLOOD GLUCOSE MONITORING SUPPL Inactive FLUVOXAMINE MALEATE 100 MG ORAL TABS Take 1/2 tab at noon FLUVOXAMINE MALEATE 100 MG ORAL TABS 875678 FLUVOXAMINE MALEATE Inactive FLUVOXAMINE MALEATE 100 MG TABS Take one (1) tablet by mouth am, 1/2 at noon FLUVOXAMINE MALEATE 100 MG TABS 904825 FLUVOXAMINE MALEATE Inactive BACTROBAN 2 % CREAM Apply to affected area BID for up to 10 days BACTROBAN 2 % CREAM 699505 MUPIROCIN CALCIUM Inactive NOVOFINE 32G X 6 MM MISC use one four times per day NOVOFINE 32G X 6 MM MISC INSULIN PEN NEEDLE Inactive TRAZODONE HCL 100 MG ORAL TABS 1 tab by mouth for sleep TRAZODONE HCL 100 MG ORAL TABS 426732 TRAZODONE HCL Inactive LOVAZA 1 GM CAPS 4 daily (for triglycerides) LOVAZA 1 GM CAPS 658891 ZQEFA-5-IZMX ETHYL ESTERS Inactive METFORMIN HCL ER 500 MG FV00R-WPT Take three tablets by mouth everyday METFORMIN HCL ER 500 MG KM56D-FPU METFORMIN HCL Inactive METOPROLOL SUCCINATE 100 MG RX04G-KCD 1 by mouth daily for blood pressure METOPROLOL SUCCINATE 100 MG ZB37R-VQX METOPROLOL SUCCINATE Inactive AMITIZA 24 MCG ORAL CAPS Take one capsule BID for constipation. AMITIZA 24 MCG ORAL CAPS LUBIPROSTONE Inactive TOLTERODINE TARTRATE 2 MG TABS 1 pill twice daily, for bladder TOLTERODINE TARTRATE 2 MG TABS 424211 TOLTERODINE TARTRATE Inactive CEFDINIR 300 MG CAPS by mouth twice a day CEFDINIR 300 MG CAPS 096136 CEFDINIR Inactive AZITHROMYCIN 500 MG SOLR 1 po q day AZITHROMYCIN 500 MG SOLR 11959494310 AZITHROMYCIN Inactive AMOXICILLIN 500 MG CAPS 2 po BID x 10 days AMOXICILLIN 500 MG CAPS 406058 AMOXICILLIN Inactive PENICILLIN V POTASSIUM 500 MG TABS 1 pill by mouth three times daily PENICILLIN V POTASSIUM 500 MG TABS 604931 PENICILLIN V POTASSIUM Inactive KEFLEX 500 MG CAP 1 po BID x 7 days KEFLEX 500 MG CAP 893567 CEPHALEXIN Inactive Immunizations Vaccine Administration Date Value [...] Fluvirin, Fluarix, Agriflu(>=18 yo)) Fluzone (>3 yrs.) [[id number]] Influenza, seasonal, injectable pneumococcal immunization administered Pneumovax [...] pressure, diastolic - 8462-4 75 mm[Hg] BP agrcia blood pressure, systolic - 8480-6 117 mm[Hg] [...] MICROALBUMIN - Chemistry sodium, serum 137 mmol/L 342-850 0772/05/19 potassium, serum 5.2 mmol/L 3.5-5.2 chloride, serum [...] Panel - Chemistry sodium, serum 137 mmol/L 864-608 0326/10/12 potassium, serum 4.8 mmol/L 3.5-5.2 chloride, serum 102 mmol/L 98-107 carbon dioxide, venous blood 27.6 mmol/L 21.0-32.0 blood glucose 168 mg/dL 65-110 calcium, serum 9.0 mg/dL 8.5-10.1 urea nitrogen, blood 15 mg/dL 7-18 creatinine, serum 1.04 mg/dL 0.55-1.30 sodium, serum 138 mmol/L 911-162 7535/11/11 potassium, serum 4.7 mmol/L 3.5-5.2 chloride, serum [...] % 11.6-14.8 platelet count 252 10^3/MM^3 10*3/mm3 112-594 3792/10/12 leukocyte count, blood 5.8 10^3/MM^3 10*3/mm3 4.6-10.2 [...] 240 10^3/MM^3 10*3/mm3 142-424 Lab Report: Chlamydia/GC APTIMA/78864, HIV-1/2 Agn/Dominga/22610, RPR (DX) W ... - Chemistry hepatitis B surface antigen NON-REACTIVE NON-REACTIVE Lab Report: Chlamydia/GC APTIMA/93383, HIV-1/2 Agn/Dominga/26631, RPR (DX) W ... - Lab chlamydia DNA probe NOT DETECTED NOT DETECTED Lab Report: Chlamydia/GC APTIMA/19748, HIV-1/2 Agn/Dominga/15122, RPR (DX) W ... - Microbiology Neisseria gonorrhoeae DNA probe NOT DETECTED NOT DETECTED Lab Report: Chlamydia/GC APTIMA/51210, HIV-1/2 Agn/Dominga/82299, RPR (DX) W ... - Serology rapid plasma reagin antibody titer NON-REACTIVE NON-REACTIVE Lab Report: HGBA1C - Chemistry hemoglobin A1C, blood, as % of total hemoglobin 6.1 % 4.3-6.0 hemoglobin A1C, blood, as % of total hemoglobin 6.3 % 4.3-6.0 Lab Report: Lipid Panel, HEPATIC PANEL, MICROALBUMIN, CBC - Chemistry cholesterol, serum 131 mg/dL 608-680 0365/06/03 triglyceride, serum, fasting 383 mg/dL 30-200 HDL [...] 4.7 mg/dL 2.6-7.2 cholesterol, serum 142 mg/dL 109-213 8045/06/26 triglyceride, serum, fasting 272 mg/dL 30-200 HDL [...] negative Encounters Code Encounter Date Provider Facility CPT-03936 Level 3 Est. Patient 14:39:00 CLEAT FEEDER Vanessa Hickey MD [facility] CPT-28875 Level 2 Est. Patient 18:43:34 CDT Mima Erazo [facility] CPT-70755 Level 3 Est. Patient 16:22:09 CDT Cherelle Avila [facility] CPT-55372 Level 4 Est. Patient 17:55:14 CDT Mima Erazo [facility] CPT-25257 Level 2 Est. Patient 17:13:21 CDT Alina Castaneda MD PhD [facility] CPT-62232 Level 3 Est. Patient 14:46:15 CDT Vanessa Hickey MD [facility]-00625 Level 3 Est. Patient 09:34:56 CDT Alina Castaneda MD PhD [facility]45708 Level 3 Est. Patient 21:40:19 CDT Mima Erazo [facility] CPT-83601 Level 3 Est. Patient 09:26:40 CDT Marvel MENDOZACHI [facility]-13466 Level 3 Est. Patient 12:36:43 CDT Vanessa Hickey MD [facility]-31446 Level 3 Est. Patient 12:57:49 CDT Vanessa Hickey MD [facility]-54862 Level 3 Est. Patient 00:28:25 CDT Alina Castaneda MD [facility]-69993 Level 2 Est. Patient 12:52:14 CDT Alina Castaneda MD [facility]-28860 Level 3 Est. Patient 11:51:18 CLEAT FEEDER Alina Castaneda MD [facility]-33142 Level 3 Est. Patient 10:09:22 CLEAT FEEDER Alina Castaneda MD [facility]-67791 Level 3 Est. Patient 14:36:26 [facility]-23307 Level 3 Est. Patient 13:34:47 CLEAT FEEDER Alina Castaneda MD [facility]-63123 Level 3 Est. Patient 19:52:08 CLEAT FEEDER Alina Castaneda MD [facility]17320 Level 3 Est. Patient 10:01:51 CLEAT FEEDER Marvel Charles [facility]-15401 Level 3 Est. Patient 21:54:06 CDT Vanessa Hickey MD [facility]-88356 Level 3 Est. Patient 08:54:46 CDT Alina Castaneda MD [facility]-26664 Level 3 Est. Patient 09:32:11 CDT Marvel Charles [facility]-97290 Level 3 Est. Patient 12:02:49 CDT Alina Castaneda MD [facility]56125 Level 3 Est. Patient 19:17:33 CDT Alina Castaneda MD [facility]-10366 Level 3 Est. Patient 13:19:10 CDT Marvel Charles [facility]-78222 Level 3 Est. Patient 08:20:05 CDT Alina Castaneda MD [facility]36934 Level 3 Est. Patient 15:17:18 CDT Alina Castaneda MD [facility]-99435 Level 3 Est. Patient 14:25:36 CLEAT FEEDER Marvel Charles [facility]-26016 Level 3 Est. Patient 10:09:15 CLEAT FEEDER Marvel Charles [facility]-99848 Level 3 Est. Patient 21:28:43 CDT Alina Castaneda MD [facility]-00808 Level 3 Est. Patient 15:20:11 [facility] 4 Est[facility] Patient 19:08:12 CDT Alina Castaneda MD [facility]-68678 Level 3 Est. Patient 15:06:39 CDT Marvel Charles [facility]-10933 Level 4 Est. Patient 17:48:15 CDT Alina Castaneda MD [facility]-61214 Level 3 Est. Patient 14:53:49 CDT Alina Castaneda MD [facility]-28214 Level 3 Est. Patient 09:35:16 CDT Alina Castaneda MD [facility]19262 Level 3 Est. Patient 12:23:22 CDT Alina Castaneda MD [facility]-76373 Level 3 Est. Patient 16:19:15 CDT Alina Castaneda MD [facility]-99045 Level 3 Est. Patient 21:39:56 CLEAT FEEDER Alina Castaneda MD [facility]-78369 Level 4 Est. Patient 14:12:56 CLEAT FEEDER Alina Castaneda MD [facility]34050 Level 2 Est. Patient 15:34:57 CLEAT FEEDER Alina Castaneda MD [facility]84425 Level 3 Est. Patient 12:17:04 CLEAT FEEDER Alina Castaneda MD [facility]43493 Level 3 Est. Patient 09:18:18 CLEAT FEEDER Marvel Charles [facility]-08636 Level 2 Est. Patient 21:50:24 CDT Alina Castaneda MD [facility]17586 Level 3 Est. Patient 09:17:28 CDT Marvel Charles [facility]-02479 Level 4 Est. Patient 18:54:02 CDT Alina Castaneda MD [facility]20638 Level 3 Est. Patient 10:47:10 CDT Alina Castaneda MD [facility]-33688 Level 3 Est. Patient 09:22:20 CDT Marvel [facility] [place]-[id number] Level 3 Est. Patient 16:39:43 CDT [facility] [place]-36055 Level 3 Est. Patient 16:05:16 CDT Alina Castaneda MD [facility]78927 Level 3 Est. Patient 00:29:15 CDT Alina Castaneda MD [facility]48726 Level 3 Est. Patient 10:49:22 [employer] [employer] CPT-18712 Level 3 Est. Patient 21:30:19 [employer] Alina Castaneda MD [facility] CPT-90738 Level 4 Est. Patient 17:04:11 [employer] [facility] CPT-00428 Level 3 Est. Patient 15:34:11 [employer] [facility] CPT-56785 Level 2 Est. Patient 12:51:58 [employer] Alina Castaneda MD [facility] CPT-10766 Level 3 Est. Patient 13:20:01 [employer] Alina Castaneda MD [facility] CPT-01434 Level 3 Est. Patient 09:23:35 CDT Alina Castaneda MD [facility] Procedures Code Procedure Name Date Entry Date Standard Description [id number] Bladder Scan 14:39:01 [employer] CPT-TCMM Transitional Care Mgmt-Moderate 10:30:19 [employer] CPT-64784 Bladder Scan 12:36:44 CDT CPT-33236 Bladder Scan 21:54:06 CDT CPT-G0008 Administration of Influenza Virus Vaccine 13:05:26 CDT CPT-78335 Fluzone Quadrivalent Intramuscular Suspension 0.5 ML 13: 05:26 CDT CPT-84055 Administration single or combination vaccine inc oral 11 :49:51 CDT CPT-68893 Pneumovax 11:49:51 CDT CPT-16383 Ribs unilateral 2V 12:37:22 [employer] CPT-47492 Chest 2V Frontal and Lat 17:15:26 CDT CPT-42493 Abx/Therapy Injection 18:54:02 CDT CPT-J0696 Rocephin 1000 mg (Ceftriaxone) 16:00:32 CDT CPT-99197 Chest 2V Frontal and Lat 15:26:45 CDT CPT-90855 Chest 2V Frontal and Lat 10:23:27 CDT CPT-59415 Venipuncture Draw Fee 10:11:00 CDT CPT-75498 Administration single or combination vaccine inc oral 11 :56:38 CDT CPT-17294 Influenza split virus > age 3 11:56:38 CDT CPT-00583 Venipuncture Draw Fee 08:49:54 [employer] CPT-97678 EKG Trac and Interp 17:54:19 CLE[employer]ER
--- OUTSIDE RECORDS SUMMARY | 2018-07-02 18:43 | XMS REPORT | Clinical Summary ---
Author Author Admin, TERELL Organization [facility] Address Unknown Phone Unavailable Allergies, Adverse Reactions, [...] PhD Asthma, unspecified OBSESSIVE-COMPULSIVE DISORDER 300.3 Active Ailna Castaneda MD PhD Obsessive-compulsive disorders GLAUCOMA NOS 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 Erazo PURCHASING ENGINEER Benign paroxysmal positional vertigo Vertigo, benign paroxysmal position 386.11 Inactive Mima Erazo PURCHASING ENGINEER Benign paroxysmal positional vertigo High-risk sexual behavior V69.2 Active Alina Castaenda MD PhD High-risk sexual behavior Erectile dysfunction 302.72 Active Alina Castaneda MD PhD Psychosexual dysfunction with inhibited sexual excitement Constipation 564.00 Active Alina Castaneda MD PhD Constipation, unspecified Skin lesion 709.9 Active Alina Castaneda MD PhD Unspecified disorder of skin and subcutaneous tissue Malaise and fatigue 780.79 Active Cherelle Speaks PURCHASING ENGINEER Other malaise and fatigue Diarrhea 787.91 Active Cherelle Speaks PURCHASING ENGINEER Diarrhea PHARYNGITIS 462 Active Cherelle Speaks PURCHASING ENGINEER Acute pharyngitis Colitis 558.9 Active Mima Erazo PURCHASING ENGINEER Other and unspecified noninfectious gastroenteritis and [...] CR-TABS Take one capsule BID MORPHINE SULFATE 20759807459 Active Mima Erazo APRN Active TRUEPLUS LANCETS 30G MISC 3x a day LANCETS 13846573314 Active Marvel MARROQUIN Active TRUE METRIX METER W/DEVICE KIT Check blood sugars 3x/day BLOOD GLUCOSE MONITORING SUPPL 07724855895 Active Marvel MRAROQUIN Active TRUE METRIX BLOOD GLUCOSE TEST INVITR STRP Check blood sugars 3x/day. GLUCOSE BLOOD 38531527714 Active Marvel MARROQUIN Active VITAMIN D 2000 UNIT ORAL CAPS Take one by mouth daily CHOLECALCIFEROL 52994391860 Active Mima Erazo APRN Active LATUDA 60 MG ORAL TABS Take one by mouth daily LURASIDONE HCL 31126714792 No Longer Active Mima Yokum PURCHASING ENGINEER Active HUMALOG KWIKPEN 100 UNIT/ML SC SOPN sliding scale if needed INSULIN LISPRO (HUMAN) 71798394131 Active Mimacecily Erazo PURCHASING ENGINEER Active TRAZODONE HCL 100 MG TABS 1 every night to prevent headaches TRAZODONE HCL 97200882623 Active Gabrielle Madl SOLIDWORKS DRAFTER Active LATUDA 60 MG ORAL TABS 1 tab daily LURASIDONE HCL 10889434934 Active Gabrielle Madl SOLIDWORKS DRAFTER Active CLONAZEPAM 1 MG TABS 1 pill by mouth three times daily CLONAZEPAM 88061991113 Active Gabrielle Madl SOLIDWORKS DRAFTER Active [facility] MILK OF MAGNESIA 400 MG/5ML ORAL SUSP 30ml by mouth bid prn MAGNESIUM HYDROXIDE 06978493940 Active Mason Loredo MD Active TYLENOL 8 HOUR 650 MG ORAL CR-TABS 1 tab QID prn ACETAMINOPHEN 06336124908 Active Mason Loredo MD Active MYLANTA GAS RELIEF MAXIMUM STR 125 MG ORAL CAPS 30cc every 4 hours prn 12/01 SIMETHICONE 52339760797 Active Mason Loredo MD Active IMODIUM A-D 2 MG ORAL TABS 1 tab QID as needed LOPERAMIDE HCL 20376177178 Active Mason Loredo MD Active FLUVOXAMINE MALEATE 50 MG ORAL TABS 1 tab by mouth daily FLUVOXAMINE MALEATE 11110218086 Active Mason Loredo MD Active TRAVATAN Z 0.004 % SOLN 1 gtt each eye daily TRAVOPROST 06801098353 No Longer Active Mason Loredo MD Active LISINOPRIL 20 MG TABS 1 BID LISINOPRIL 48854102568 No Longer Active Mason Loredo MD Active LEVEMIR FLEXTOUCH 100 UNIT/ML SC SOPN 60 units SQ each evening, for diabetes INSULIN DETEMIR 77678860547 Active Mima Erazo APRN Active ZOLPIDEM TARTRATE 10 MG TABS take at bedtime ZOLPIDEM TARTRATE 21168233780 No Longer Active Mason Loredo MD Active HYDROCODONE-ACETAMINOPHEN 5-325 MG TABS 2 tabs by mouth three times daily for pain HYDROCODONE-ACETAMINOPHEN 94713840538 No Longer Active Mason Loredo MD Active ZOFRAN 4 MG TABS 1 po q4hr PRN Nausea ONDANSETRON HCL 41958627570 No Longer Active Mason Loredo MD Active LOMOTIL 2.5-0.025 MG ORAL TABS take 1-2 tabs PO after each stool, no more than 8 in 24 hours DIPHENOXYLATE-ATROPINE 73500181305 No Longer Active Mason Loredo MD Active COLACE 100 MG CAPS 1 pill by mouth twice daily, for constipation DOCUSATE SODIUM 76305173293 No Longer Active Mima Erazo APRN Active FLONASE ALLERGY RELIEF 50 MCG/ACT NASAL SUSP One spray each nostril BID x 1 week then daily FLUTICASONE PROPIONATE 49810333015 Active Mima Erazo APRN Active BD PEN NEEDLE MINI U/F 31G X 5 MM MISC 4 a day INSULIN PEN NEEDLE 43621566364 Active Maljohn Ziglari MATERIAL REQUIREMENTS WORKER Active AMITIZA 24 MCG ORAL CAPS Take one capsule BID for constipation LUBIPROSTONE 01448399930 Active Mima Erazo APRN Active TRUEPLUS LANCETS 30G MISC 3 a day LANCETS 04110726637 Active Marvel Mackenzieglestela MATERIAL REQUIREMENTS WORKER Active TOLTERODINE TARTRATE 2 MG TABS 1 pill twice daily, for bladder TOLTERODINE TARTRATE 29346738700 No Longer Active Vanessa Hickey MD Active AMITIZA 24 MCG ORAL CAPS Take one capsule BID for constipation. LUBIPROSTONE 52204299663 No Longer Active Vanessa Hickey MD Active FLUVOXAMINE MALEATE 100 MG ORAL TABS take one tab every AM et HS, and take 1/ 2 tab at noon FLUVOXAMINE MALEATE 75698937174 Active Grace ROJAS Active METOPROLOL SUCCINATE 100 MG [id number] 1 by mouth daily for blood pressure METOPROLOL SUCCINATE 33455732378 No Longer Active Grace Azam RMA Active METFORMIN HCL ER 500 MG [id number] Take three tablets by mouth everyday METFORMIN HCL 00921962659 No Longer Active Grace Azam RMA Active LOVAZA 1 GM CAPS 4 daily (for triglycerides) OMEGA-3- ACID ETHYL ESTERS 97291678831 No Longer Active Grace Azam RMA Active TRAZODONE HCL 100 MG ORAL TABS 1 tab by mouth for sleep TRAZODONE HCL 28652534982 No Longer Active Grace Azam RMA Active NOVOFINE 32G X 6 MM MISC use one four times per day INSULIN PEN NEEDLE 84827396031 No Longer Active Grace Azam RMA Active BACTROBAN 2 % CREAM Apply to affected area BID for up to 10 days MUPIROCIN CALCIUM 45170374232 No Longer Active Grace Azam RMA Active KEFLEX 500 MG CAP 1 po BID x 7 days CEPHALEXIN 64126334076 No Longer Active Cherelle Avila PURCHASING ENGINEER Active FLUVOXAMINE MALEATE 100 MG TABS Take one (1) tablet by mouth am, 1/2 at noon FLUVOXAMINE MALEATE 74813446367 No Longer Active Mima Erazo APRN Active CORICIDIN HBP CONGESTION/COUGH 10-200 MG ORAL CAPS Take as directed on box as needed for cold/flu symptoms DEXTROMETHORPHAN-GUAIFENESIN 40800263612 Active Cherelle Speaks PURCHASING ENGINEER Active OMEGA-3 300 MG ORAL CAPS 4 caps by mouth daily OMEGA-3 FATTY ACIDS 93353129170 Active Mima Yokum PURCHASING ENGINEER Active FLUVOXAMINE MALEATE 100 MG ORAL TABS Take 1/2 tab at noon FLUVOXAMINE MALEATE 80264961875 No Longer Active Cherelle Speaks PURCHASING ENGINEER Active [facility] LUBRICANT EYE DROPS 0.4-0.3 % OPHTH SOLN POLYETHYL GLYCOL-PROPYL GLYCOL 15505990731 Active Mima Yokum PURCHASING ENGINEER Active MIRALAX POWD 17g by mouth daily, for constipation POLYETHYLENE GLYCOL 3350 61850946641 Active Alina Castaneda MD PhD Active TRUETEST TEST STRP check blood sugars 3x/day GLUCOSE BLOOD 58556975028 Active Maljohn Ziglari MATERIAL REQUIREMENTS WORKER Active ACCU-CHEK ROSA UZMA Use device to check blood sugars BLOOD GLUCOSE MONITORING SUPPL 04712281401 No Longer Active Maliheh Ziglari MATERIAL REQUIREMENTS WORKER Active ACCU-CHEK ROSA INVITR STRP use strips with device to check blood sugars 3 times daily GLUCOSE BLOOD 88600868561 No Longer Active Maljohn Mackenzieglari MATERIAL REQUIREMENTS WORKER Active VERAPAMIL HCL ER 180 MG ORAL CR-TABS 1 pill by mouth twice daily, for migraine prevention VERAPAMIL HCL 38914577867 Active Mima Erazo APRN Active CYCLOBENZAPRINE HCL 10 MG TABS 1 tablet by mouth three times daily, scheduled CYCLOBENZAPRINE HCL 44379000098 No Longer Active Alina Castaneda MD PhD Active HUMALOG 100 UNIT/ML SOLN Take 20 units with breakfast, 10u with lunch and suppetr. INSULIN LISPRO (HUMAN) 36105683329 No Longer Active Alina Castaneda MD PhD Active TRUETEST TEST STRP check sugars 4x/day GLUCOSE BLOOD 88567298628 No Longer Active Alina Castaneda MD PhD Active MORPHINE SULFATE 30 MG TABS 1 pill by mouth twice daily, for pain MORPHINE SULFATE 98493185053 No Longer Active Mason Loredo MD Active ACYCLOVIR 400 MG ORAL TABS 1 pill three times daily x 5 days, for cold sore outbreak ACYCLOVIR 65778919206 No Longer Active Alina Castaneda MD PhD Active PENICILLIN V POTASSIUM 500 MG TABS 1 pill by mouth three times daily PENICILLIN V POTASSIUM 57469939762 No Longer Active Alina Castaneda MD PhD Active UROXATRAL 10 MG [id number]-VON Take 1 tablet by mouth daily ALFUZOSIN HCL 04702616443 No Longer Active Alina Castaneda MD PhD Active THIOTHIXENE 5 MG CAPS by mouth twice a day THIOTHIXENE 96556192808 No Longer Active Alina Castaneda MD PhD Active ZYPREXA 7.5 MG TABS 1 at HS OLANZAPINE 00016985173 No Longer Active Alina Castaneda MD PhD Active BD INSULIN SYRINGE 28G X 1/2" 1 ML MISC 1 four times per day INSULIN SYRINGE-NEEDLE U-100 38120316012 Active Maliheh Ziglari MATERIAL REQUIREMENTS WORKER Active DETROL LA 4 MG GE62L-ATH Take 1 tablet by mouth daily TOLTERODINE TARTRATE 51787507268 No Longer Active Alina Castaneda MD PhD Active TERESE CONTOUR TEST STRP monitor blood sugars 3x/day GLUCOSE BLOOD 08235303118 No Longer Active Alina Castaneda MD PhD Active EQL TRUETEST TEST STRP Test blood sugar TID GLUCOSE BLOOD 41441366759 No Longer Active Alina Castaneda MD PhD Active FLUTICASONE PROPIONATE 50 MCG/ACT SUSP 2 sprays each nostril qDay x 30 days FLUTICASONE PROPIONATE 43215275166 No Longer Active Alina Castaneda MD PhD Active IBUPROFEN 200 MG TABS 1 Q 6 hr. PRN IBUPROFEN 64472129245 No Longer Active Alina Castaneda MD PhD Active NIACIN ER 500 MG CR-TABS 4 qHS (for triglycerides) NIACIN 54884236066 No Longer Active Alina Castaneda MD PhD Active ALFUZOSIN HCL ER 10 MG [id number] 1 tablet daily ALFUZOSIN HCL 18737729342 Active Mima Yokum PURCHASING ENGINEER Active SAPHRIS 5 MG SUBL by mouth twice a day ASENAPINE MALEATE 62046544590 No Longer Active MalGuideIT Ziglari MATERIAL REQUIREMENTS WORKER Active ACETAMINOPHEN 500 MG TABS 2 Q 6 hr. PRN ACETAMINOPHEN 51368681760 No Longer Active Maliheh Ziglari MATERIAL REQUIREMENTS WORKER Active ORPHENADRINE CITRATE ER 100 MG [id number] 1 every 12 hr. as needed ORPHENADRINE CITRATE 45581821550 No Longer Active Alina Castaneda MD PhD Active NIACIN CR 500 MG CR-TABS 2 qHS NIACIN 24527162533 No Longer Active Alina Castaneda MD PhD Active AMOXICILLIN 500 MG CAPS 2 po BID x 10 days AMOXICILLIN 20544975352 No Longer Active Alina Castaneda MD PhD Active HYDROCODONE-ACETAMINOPHEN 7.5-325 MG TABS 1 four times a day as needed for pain HYDROCODONE-ACETAMINOPHEN 17287912333 No Longer Active Alina Castaneda MD PhD Active DOXEPIN HCL 10 MG CAPS Take 1 tablet by mouth daily DOXEPIN HCL 22036664808 No Longer Active Salina Han A Active NAVANE 10 MG CAPS 1/2 tablet twice a day THIOTHIXENE No Longer Active Salina Han [facility] Active CYCLOBENZAPRINE HCL 10 MG TABS 1/2 tablet by mouth every 8 hours as needed for muscle spasms CYCLOBENZAPRINE HCL 64596618469 No Longer Active Alina Castaneda MD PhD Active BACTROBAN 2 % CREAM apply to ear and nose twice daily MUPIROCIN CALCIUM 05706331126 No Longer Active Alina Castaneda MD PhD Active HYDROCODONE-ACETAMINOPHEN 5-325 MG TABS take one tablet by mouth every four hours as needed for pain HYDROCODONE-ACETAMINOPHEN 20561481164 No Longer Active Alina Castaneda MD PhD Active ZYPREXA 5 MG TABS take one tablet by mouth every evening OLANZAPINE 37872734492 No Longer Active Alina Castaneda MD PhD Active ALBUTEROL SULFATE 0.083 % NEBU SOLN one vial per nebulizer TID and PRN cough/ soa ALBUTEROL SULFATE 86911969052 No Longer Active Alina Castaneda MD PhD Active GUAIFENESIN 600 MG [id number]-MQR 1 tablet by mouth twice daily if needed for cough GUAIFENESIN 10868685799 No Longer Active Marvel MARROQUIN Active AZITHROMYCIN 500 MG SOLR 1 po q day AZITHROMYCIN 94001922420 No Longer Active Alina Castaneda MD PhD Active PROMETHAZINE-CODEINE 6.25-10 MG/5ML SYRP 1 tsp po q 6 hours prn cough PROMETHAZINE-CODEINE 44398929847 No Longer Active Alina Castaneda MD PhD Active CEFDINIR 300 MG CAPS by mouth twice a day CEFDINIR 52765404387 No Longer Active Alina Castaneda MD PhD Active METFORMIN HCL 500 MG GO04Z-VCO Take 3 tablets by mouth everyday METFORMIN HCL 83498867389 No Longer Active Alina Castaneda MD PhD Active LEVEMIR 100 UNIT/ML SOLN 90 units SQ qHS INSULIN DETEMIR 56043628440 No Longer Active Marvel MARROQUIN Active TOPROL XL 100 MG [id number]-NHQ 1 @ HS METOPROLOL SUCCINATE 73723780539 No Longer Active Marvel MARROQUIN Active ALLOPURINOL 300 MG TABS Take one by mouth daily ALLOPURINOL 05898629945 Active Mima Erazo PURCHASING ENGINEER Active ZYPREXA 10 MG TABS Take one by mouth daily OLANZAPINE 06387552068 No Longer Active Alina Castaneda MD PhD Active NOVOLOG 100 UNIT/ML SOLN 40 units with every meal INSULIN ASPART 54161091603 No Longer Active Alina Castaneda MD PhD Active VERAPAMIL HCL CR 120 MG TAB CR 1 qPM VERAPAMIL HCL 99417909937 No Longer Active Salina ROBBINS Active ZYPREXA 15 MG TABS Take 1 tablet by mouth daily OLANZAPINE 20110115222 No Longer Active Marvel MARROQUIN Active ALBUTEROL SULFATE (2.5 MG/3ML) 0.083% NEBU 1 neb tid and prn cough ALBUTEROL SULFATE 49415585970 No Longer Active Alina Castaneda MD PhD Active LANTUS 100 UNIT/ML SOLN 60 units sq q hs INSULIN GLARGINE 54545946722 No Longer Active CRYSTAL Suarez Active ALBUTEROL SULFATE (2.5 MG/3ML) 0.083% NEBU 1 neb tid and prn cough ALBUTEROL SULFATE (2.5 MG/3ML) 0.083% NEBU 857813 ALBUTEROL SULFATE Inactive ZYPREXA 15 MG TABS Take 1 tablet by mouth daily ZYPREXA 15 MG TABS 067351 OLANZAPINE Inactive VERAPAMIL HCL CR 120 MG TAB CR 1 qPM VERAPAMIL HCL CR 120 MG TAB CR VERAPAMIL HCL Inactive ZYPREXA 10 MG TABS Take one by mouth daily ZYPREXA 10 MG TABS 586620 OLANZAPINE Inactive TOPROL XL 100 MG [id number] 1 @ HS TOPROL XL 100 MG PP88X-PWO METOPROLOL SUCCINATE Inactive LEVEMIR 100 UNIT/ML SOLN 90 units SQ qHS LEVEMIR 100 UNIT/ML SOLN INSULIN DETEMIR Inactive PROMETHAZINE-CODEINE 6.25-10 MG/5ML SYRP 1 tsp po q 6 hours prn cough PROMETHAZINE-CODEINE 6.25-10 MG/5ML SYRP 928324 PROMETHAZINE- CODEINE Inactive GUAIFENESIN 600 MG SL40M-YIY 1 tablet by mouth twice daily if needed for cough GUAIFENESIN 600 MG AA40W-TDA GUAIFENESIN Inactive ALBUTEROL SULFATE 0.083 % NEBU SOLN one vial per nebulizer TID and PRN cough/ soa ALBUTEROL SULFATE 0.083 % NEBU SOLN 630262 ALBUTEROL SULFATE Inactive ZYPREXA 5 MG TABS take one tablet by mouth every evening ZYPREXA 5 MG TABS 566296 OLANZAPINE Inactive HYDROCODONE-ACETAMINOPHEN 5-325 MG TABS take one tablet by mouth every four hours as needed for pain HYDROCODONE-ACETAMINOPHEN 5-325 MG TABS 204914 HYDROCODONE-ACETAMINOPHEN Inactive BACTROBAN 2 % CREAM apply to ear and nose twice daily BACTROBAN 2 % CREAM 132701 MUPIROCIN CALCIUM Inactive CYCLOBENZAPRINE HCL 10 MG TABS 1/2 tablet by mouth every 8 hours as needed for muscle spasms CYCLOBENZAPRINE HCL 10 MG TABS 561063 CYCLOBENZAPRINE HCL Inactive NAVANE 10 MG CAPS 1/2 tablet twice a day NAVANE 10 MG CAPS THIOTHIXENE Inactive DOXEPIN HCL 10 MG CAPS Take 1 tablet by mouth daily DOXEPIN HCL 10 MG CAPS 5964082 DOXEPIN HCL Inactive HYDROCODONE-ACETAMINOPHEN 7.5-325 MG TABS 1 four times a day as needed for pain HYDROCODONE-ACETAMINOPHEN 7.5-325 MG TABS 162666 HYDROCODONE-ACETAMINOPHEN Inactive NIACIN CR 500 MG CR-TABS 2 qHS NIACIN CR 500 MG CR- TABS NIACIN Inactive ORPHENADRINE CITRATE ER 100 MG [id number] 1 every 12 hr. as needed ORPHENADRINE CITRATE ER 100 MG CN22W-GAP ORPHENADRINE CITRATE Inactive ACETAMINOPHEN 500 MG TABS 2 Q 6 hr. PRN ACETAMINOPHEN 500 MG TABS 223676 ACETAMINOPHEN Inactive SAPHRIS 5 MG SUBL by mouth twice a day SAPHRIS 5 MG SUBL ASENAPINE MALEATE Inactive NIACIN ER 500 MG CR-TABS 4 qHS (for triglycerides) NIACIN ER 500 MG CR-TABS NIACIN Inactive IBUPROFEN 200 MG TABS 1 Q 6 hr. PRN IBUPROFEN 200 MG TABS 960130 IBUPROFEN Inactive FLUTICASONE PROPIONATE 50 MCG/ACT SUSP 2 sprays each nostril qDay x 30 days FLUTICASONE PROPIONATE 50 MCG/ACT SUSP 1631874 FLUTICASONE PROPIONATE Inactive EQL TRUETEST TEST STRP Test blood sugar TID EQL TRUETEST TEST STRP GLUCOSE BLOOD Inactive TERESE CONTOUR TEST STRP monitor blood sugars 3x/day TERESE CONTOUR TEST STRP GLUCOSE BLOOD Inactive DETROL LA 4 MG [id number] Take 1 tablet by mouth daily DETROL LA 4 MG [id number]-AJI TOLTERODINE TARTRATE Inactive ZYPREXA 7.5 MG TABS 1 at HS ZYPREXA 7.5 MG TABS 135311 OLANZAPINE Inactive THIOTHIXENE 5 MG CAPS by mouth twice a day THIOTHIXENE 5 MG CAPS 181281 THIOTHIXENE Inactive UROXATRAL 10 MG NY31Z-RXQ Take 1 tablet by mouth daily UROXATRAL 10 MG FA35D-GCF ALFUZOSIN HCL Inactive ACYCLOVIR 400 MG ORAL TABS 1 pill three times daily x 5 days, for cold sore outbreak ACYCLOVIR 400 MG ORAL TABS 442010 ACYCLOVIR Inactive TRUETEST TEST STRP check sugars 4x/day TRUETEST TEST STRP GLUCOSE BLOOD Inactive HUMALOG 100 UNIT/ML SOLN Take 20 units with breakfast, 10u with lunch and suppetr. HUMALOG 100 UNIT/ML SOLN INSULIN LISPRO ( HUMAN) Inactive CYCLOBENZAPRINE HCL 10 MG TABS 1 tablet by mouth three times daily, scheduled CYCLOBENZAPRINE HCL 10 MG TABS 456758 CYCLOBENZAPRINE HCL Inactive ACCU-CHEK ROSA INVITR STRP use strips with device to check blood sugars 3 times daily ACCU-CHEK ROSA INVITR STRP GLUCOSE BLOOD Inactive ACCU-CHEK ROSA UZMA Use device to check blood sugars ACCU-CHEK ROSA UZMA BLOOD GLUCOSE MONITORING SUPPL Inactive FLUVOXAMINE MALEATE 100 MG ORAL TABS Take 1/2 tab at noon FLUVOXAMINE MALEATE 100 MG ORAL TABS 838201 FLUVOXAMINE MALEATE Inactive FLUVOXAMINE MALEATE 100 MG TABS Take one (1) tablet by mouth am, 1/2 at noon FLUVOXAMINE MALEATE 100 MG TABS 892762 FLUVOXAMINE MALEATE Inactive BACTROBAN 2 % CREAM Apply to affected area BID for up to 10 days BACTROBAN 2 % CREAM 923109 MUPIROCIN CALCIUM Inactive NOVOFINE 32G X 6 MM MISC use one four times per day NOVOFINE 32G X 6 MM MISC INSULIN PEN NEEDLE Inactive TRAZODONE HCL 100 MG ORAL TABS 1 tab by mouth for sleep TRAZODONE HCL 100 MG ORAL TABS 092000 TRAZODONE HCL Inactive LOVAZA 1 GM CAPS 4 daily (for triglycerides) LOVAZA 1 GM CAPS 139136 KRQOM-4-YFXV ETHYL ESTERS Inactive METFORMIN HCL ER 500 MG PP81G-TLL Take three tablets by mouth everyday METFORMIN HCL ER 500 MG UN71Z-JSE METFORMIN HCL Inactive METOPROLOL SUCCINATE 100 MG TN75E-JMT 1 by mouth daily for blood pressure METOPROLOL SUCCINATE 100 MG HY22Q-CWO METOPROLOL SUCCINATE Inactive AMITIZA 24 MCG ORAL CAPS Take one capsule BID for constipation. AMITIZA 24 MCG ORAL CAPS LUBIPROSTONE Inactive TOLTERODINE TARTRATE 2 MG TABS 1 pill twice daily, for bladder TOLTERODINE TARTRATE 2 MG TABS 203563 TOLTERODINE TARTRATE Inactive COLACE 100 MG CAPS 1 pill by mouth twice daily, for constipation COLACE 100 MG CAPS 6006569 DOCUSATE SODIUM Inactive LOMOTIL 2.5-0.025 MG ORAL TABS take 1-2 tabs PO after each stool, no more than 8 in 24 hours LOMOTIL 2.5-0.025 MG ORAL TABS 0399945 DIPHENOXYLATE-ATROPINE Inactive ZOFRAN 4 MG TABS 1 po q4hr PRN Nausea ZOFRAN 4 MG TABS 288295 ONDANSETRON HCL Inactive HYDROCODONE-ACETAMINOPHEN 5-325 MG TABS 2 tabs by mouth three times daily for pain HYDROCODONE-ACETAMINOPHEN 5-325 MG TABS 013376 HYDROCODONE-ACETAMINOPHEN Inactive ZOLPIDEM TARTRATE 10 MG TABS take at bedtime ZOLPIDEM TARTRATE 10 MG TABS 370596 ZOLPIDEM TARTRATE Inactive LISINOPRIL 20 MG TABS 1 BID LISINOPRIL 20 MG TABS 058249 LISINOPRIL Inactive TRAVATAN Z 0.004 % SOLN 1 gtt each eye daily TRAVATAN Z 0.004 % SOLN TRAVOPROST Inactive LATUDA 60 MG ORAL TABS Take one by mouth daily LATUDA 60 MG ORAL TABS LURASIDONE HCL Inactive CEFDINIR 300 MG CAPS by mouth twice a day CEFDINIR 300 MG CAPS 375174 CEFDINIR Inactive AZITHROMYCIN 500 MG SOLR 1 po q day AZITHROMYCIN 500 MG SOLR 89994807785 AZITHROMYCIN Inactive AMOXICILLIN 500 MG CAPS 2 po BID x 10 days AMOXICILLIN 500 MG CAPS 933288 AMOXICILLIN Inactive PENICILLIN V POTASSIUM 500 MG TABS 1 pill by mouth three times daily PENICILLIN V POTASSIUM 500 MG TABS 983234 PENICILLIN V POTASSIUM Inactive KEFLEX 500 MG CAP 1 po BID x 7 days KEFLEX 500 MG CAP 855481 CEPHALEXIN Inactive Immunizations Vaccine Administration Date Value [...] Fluvirin, Fluarix, Agriflu(>=18 yo)) Fluzone (>3 yrs.) [[id number]] Influenza, seasonal, injectable pneumococcal immunization administered Pneumovax [...] Panel - Chemistry sodium, serum 138 mmol/L 174-264 2736/11/11 potassium, serum 4.7 mmol/L 3.5-5.2 chloride, serum [...] Acid - Chemistry cholesterol, serum 187 mg/dL 315-717 4332/06/14 triglyceride, serum, fasting 246 mg/dL 30-200 HDL [...] negative Encounters Code Encounter Date Provider Facility CPT-75320 Level 3 Est. Patient 16:52:51 CDT Vanessa Hickey MD [facility]-78810 Level 3 Est. Patient 17:40:16 CDT Mima Erazo [facility] CPT-20481 Level 3 Est. Patient 14:34:52 CDT Vanessa Hickey MD [facility]-78737 Level 3 Est. Patient 16:27:51 CDT Mima Erazo [facility]-14804 Level 3 Est. Patient 14:39:00 RESTAURANT ATTENDANT Vanessa Hickey MD [facility] CPT-40135 Level 2 Est. Patient 18:43:34 CDT Mima Erazo [facility] CPT-24604 Level 3 Est. Patient 16:22:09 CDT Cherelle Avila [facility] CPT-26859 Level 4 Est. Patient 17:55:14 [facility] Level 2 Est. Patient 17:13:21 CDT Alina Castaneda MD [facility]-60778 Level 3 Est. Patient 14:46:15 CDT Vanessa Hickey MD [facility]-00282 Level 3 Est. Patient 09:34:56 CDT Alina Castaneda [facility]58057 Level 3 Est. Patient 21:40:19 CDT Mima Erazo [facility]-96526 Level 3 Est. Patient 09:26:40 CDT Marvel Charles [facility]-72495 Level 3 Est. Patient 12:36:43 CDT Vanessa Hickey MD [facility]-06924 Level 3 Est. Patient 12:57:49 CDT Vanessa Hickey MD [facility]-46155 Level 3 Est. Patient 00:28:25 CDT Alina Castaneda MD [facility]-19266 Level 2 Est. Patient 12:52:14 CDT Alina Castaneda MD [facility]-03488 Level 3 Est. Patient 11:51:18 RESTAURANT ATTENDANT Alina Castaneda MD [facility]-92621 Level 3 Est. Patient 10:09:22 RESTAURANT ATTENDANT Alina Castaneda MD [facility]-23363 Level 3 Est. Patient 14:36:26 [facility]UR[facility]END[facility]-19129 Level 3 Est. Patient 13:34:47 RESTAURANT ATTENDANT Alina Castaneda MD [facility]-01472 Level 3 Est. Patient 19:52:08 RESTAURANT ATTENDANT Alina Castaneda MD [facility]-71802 Level 3 Est. Patient 10:01:51 RESTAURANT ATTENDANT Marvel [facility]-88941 Level 3 Est. Patient 21:54:06 CDT Vanessa Hickey MD [facility]-42284 Level 3 Est. Patient 08:54:46 CDT Alina Castaneda MD [facility]-98445 Level 3 Est. Patient 09:32:11 CDT Marvel [facility]-27114 Level 3 Est. Patient 12:02:49 CDT Alina Castaneda MD [facility]20938 Level 3 Est. Patient 19:17:33 CDT Alina Castaneda MD [facility]-35522 Level 3 Est. Patient 13:19:10 CDT Marvel [facility]-21622 Level 3 Est. Patient 08:20:05 CDT Alina Castaneda MD [facility]66886 Level 3 Est. Patient 15:17:18 CDT Alina Castaneda MD [facility]82229 Level 3 Est. Patient 14:25:36 RESTAURANT ATTENDANT Marvel [facility]-51401 Level 3 Est. Patient 10:09:15 RESTAURANT ATTENDANT [facility] Est. Patient 21:28:43 CDT Alina Castaneda MD [facility]-30897 Level 3 Est. Patient 15:20:11 [facility]28[facility] Level 4 Est. Patient 19:08:12 CDT Alina Castaneda MD [facility]31761 Level 3 Est. Patient 15:06:39 [facility] Level 4 Est. Patient 17:48:15 CDT Alina Castaneda [facility] [facility] Level 3 Est. Patient 14:53:49 CDT Alina Castaneda MD [facility]-79358 Level 3 Est. Patient 09:35:16 CDT Alina Castaneda MD [facility]55366 Level 3 Est. Patient 12:23:22 CDT Alina Castaneda MD [facility]85338 Level 3 Est. Patient 16:19:15 CDT Alina Castaneda MD [facility]-54302 Level 3 Est. Patient 21:39:56 RESTAURANT ATTENDANT Alina Castaneda MD [facility]83682 Level 4 Est. Patient 14:12:56 RESTAURANT ATTENDANT Alina Castaneda MD [facility]94353 Level 2 Est. Patient 15:34:57 RESTAURANT ATTENDANT Alina Castaneda MD [facility]82476 Level 3 Est. Patient 12:17:04 RESTAURANT ATTENDANT Alina Castaneda MD [facility]09727 Level 3 Est. Patient 09:18:18 RESTAURANT ATTENDANT Marvel Charles [facility]-83325 Level 2 Est. Patient 21:50:24 CDT Alina Castaneda MD [facility]94747 Level 3 Est. Patient 09:17:28 CDT Marvel Charles [facility]-39021 Level 4 Est. Patient 18:54:02 CDT Alina Castaneda MD [facility]18871 Level 3 Est. Patient 10:47:10 CDT Alina Castaneda MD [facility]-33595 Level 3 Est. Patient 09:22:20 CDT Marvel Charles [facility]-49539 Level 3 Est. Patient 16:39:43 CDT Marvel Charles [facility]-26753 Level 3 Est. Patient 16:05:16 CDT Alina Castaneda MD [facility]78985 Level 3 Est. Patient 00:29:15 CDT Alina Castaneda MD [facility]06487 Level 3 Est. Patient 10:49:22 RESTAURANT ATTENDANT Marvel [facility] CPT-73370 Level 3 Est. Patient 21:30:19 RESTAURANT ATTENDANT Alina Castaneda MD [facility] CPT-73288 Level 4 Est. Patient 17:04:11 RESTAURANT ATTENDANT [facility] CPT-11429 Level 3 Est. Patient 15:34:11 RESTAURANT ATTENDANT [facility] CPT-38654 Level 2 Est. Patient 12:51:58 RESTAURANT ATTENDANT Alina Castaneda MD PhD [facility] CPT-31987 Level 3 Est. Patient 13:20:01 RESTAURANT ATTENDANT Alina Castaneda MD [facility] CPT-30563 Level 3 Est. Patient 09:23:35 CDT Alina Castaneda MD PhD [facility] Procedures Code Procedure Name Date Entry Date Standard Description [facility] Transitional Care Mgmt-Moderate 10:25:31 CDT CPT-43171 Bladder Scan 14:34:53 CDT CPT-22787 Bladder Scan 14:39:01 RESTAURANT ATTENDANT [facility] Transitional Care Mgmt-Moderate 10:30:19 [employer]AURANT ATTENDANT CPT-31692 Bladder Scan 12:36:44 CDT CPT-69805 Bladder Scan 21:54:06 CDT CPT-G0008 Administration of Influenza Virus Vaccine 13:05:26 CDT CPT-33215 Fluzone Quadrivalent Intramuscular Suspension 0.5 ML 13: 05:26 CDT CPT-89774 Administration single or combination vaccine inc oral 11 :49:51 CDT CPT-73944 Pneumovax 11:49:51 CDT CPT-27847 Ribs unilateral 2V 12:37:22 [employer]AURANT ATTEND[employer] CPT-11880 Chest 2V Frontal and Lat 17:15:26 CDT CPT-51026 Abx/Therapy Injection 18:54:02 CDT CPT-J0696 Rocephin 1000 mg (Ceftriaxone) 16:00:32 CDT CPT-49706 Chest 2V Frontal and Lat 15:26:45 CDT CPT-05321 Chest 2V Frontal and Lat 10:23:27 CDT CPT-09320 Venipuncture Draw Fee 10:11:00 CDT CPT-36581 Administration single or combination vaccine inc oral 11 :56:38 CDT CPT-04470 Influenza split virus > age 3 11:56:38 CDT CPT-18142 Venipuncture Draw Fee 08:49:54 [employer]AURANT ATTENDANT CPT-94210 EKG Trac and Interp 17:54:19 RESTAURANT ATTENDANT
--- OUTSIDE RECORDS SUMMARY | 2018-07-02 18:48 | XMS REPORT | Clinical Summary ---
Author Author Admin, TERELL Organization [facility] Address Unknown Phone Unavailable Allergies, Adverse 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 Erazo [employer] Benign paroxysmal positional vertigo Vertigo, benign paroxysmal position 386.11 Inactive Mima Erazo [employer] Benign paroxysmal positional vertigo High-risk sexual behavior V69.2 Active Alina Castaneda MD PhD High-risk sexual behavior Erectile dysfunction 302.72 Active Alina Castaneda MD PhD Psychosexual dysfunction with inhibited sexual excitement Constipation 564.00 Active Alina Castaneda MD PhD Constipation, unspecified Skin lesion 709.9 Active Alina Castaneda MD PhD Unspecified disorder of skin and subcutaneous tissue Malaise and fatigue 780.79 Active Cherelle Speaks [employer] Other malaise and fatigue Diarrhea 787.91 Active Cherelle Speaks [employer] Diarrhea PHARYNGITIS 462 Active Cherelle Speaks [employer] Acute pharyngitis Colitis 558.9 Active Mima Erazo [employer] Other and unspecified noninfectious gastroenteritis and colitis WOUND, OPEN, NOSE ICD-873.20 Inactive Alina Castaneda MD PhD DIABETES, TYPE 2 ICD-250.00 Inactive Alina Castaneda MD PhD HYPERTENSION ICD-401.9 Inactive Alina Castaneda MD PhD URI ICD-465.9 Inactive Alina Castaneda MD PhD CHEST PAIN ICD-786.50 Inactive Alina Castaneda MD PhD FH STROKE ICD-V17.1 Inactive Marvel Charles DIRECTOR [facility] FATIGUE ICD-780.79 Inactive Alina Castaneda MD PhD [...] SQ each evening, for diabetes INSULIN DETEMIR 25556078869 Active Salina ROJAS Active TRUEPLUS LANCETS 30G MISC 3 a day LANCETS 23252748810 Active Marvel MENDOZAP Active TOLTERODINE TARTRATE 2 MG TABS 1 pill twice daily, for bladder TOLTERODINE TARTRATE 71424271953 No Longer Active Vanessa Hickey MD Active AMITIZA 24 MCG ORAL CAPS Take one capsule BID for constipation. LUBIPROSTONE 08356247453 No Longer Active Vanessa Hickey MD Active LOMOTIL 2.5-0.025 MG ORAL TABS take 1-2 tabs PO after each stool, no more than 8 in 24 hours DIPHENOXYLATE-ATROPINE 70174793404 Active Grace ROJAS Active FLUVOXAMINE MALEATE 100 MG ORAL TABS take one tab every AM et HS, and take 1/ 2 tab at noon FLUVOXAMINE MALEATE 17780836671 Active Grace ROJAS Active METOPROLOL SUCCINATE 100 MG GU45M-LSD 1 by mouth daily for blood pressure METOPROLOL SUCCINATE 09673307843 No Longer Active Grace Nelsonb RMA Active METFORMIN HCL ER 500 MG [id number]-MTX Take three tablets by mouth everyday METFORMIN HCL 95428907315 No Longer Active Grace Azam RMA Active LOVAZA 1 GM CAPS 4 daily (for triglycerides) OMEGA-3- ACID ETHYL ESTERS 76578491748 No Longer Active Grace Azam RMA Active TRAZODONE HCL 100 MG ORAL TABS 1 tab by mouth for sleep TRAZODONE HCL 65890136202 No Longer Active Grace Azam RMA Active NOVOFINE 32G X 6 MM MISC use one four times per day INSULIN PEN NEEDLE 74386283135 No Longer Active Grace Azam RMA Active BACTROBAN 2 % CREAM Apply to affected area BID for up to 10 days MUPIROCIN CALCIUM 23117843714 No Longer Active Grace Azam RMA Active ZOFRAN 4 MG TABS 1 po q4hr PRN [place] ONDANSETRON HCL 91681533763 Active Salina Han RMA Active KEFLEX 500 MG CAP 1 po BID x 7 days CEPHALEXIN 60404637370 No Longer Active Cherelle Speaks [employer] Active FLUVOXAMINE MALEATE 100 MG TABS Take one (1) tablet by mouth am, 1/2 at noon FLUVOXAMINE MALEATE 42560861710 No Longer Active Mima Erazo [employer] Active CORICIDIN HBP CONGESTION/COUGH 10-200 MG ORAL CAPS Take as directed on box as needed for cold/flu symptoms DEXTROMETHORPHAN-GUAIFENESIN 35297938266 Active Cherelle Speaks [employer] Active OMEGA-3 300 MG ORAL CAPS 4 caps by mouth daily OMEGA-3 FATTY ACIDS 83150346094 Active Cherelle Speaks [employer] Active FLUVOXAMINE MALEATE 100 MG ORAL TABS Take 1/2 tab at noon FLUVOXAMINE MALEATE 56053975338 No Longer Active Cherelle Avila [employer] Active [facility] LUBR[facility]ANT E[facility] DROPS 0.4-0.3 % OPHTH SOLN POLYETHYL GLYCOL-PROPYL GLYCOL 74467758662 Active Mima Erazo [employer] Active CLONAZEPAM 1 MG TABS 1/2 pill by mouth three times daily CLONAZEPAM 96159542240 Active Alina Castaneda MD PhD Active MIRALAX POWD 17g by mouth daily, for constipation POLYETHYLENE GLYCOL 3350 86148112527 Active Alina Castaneda MD PhD Active HYDROCODONE-ACETAMINOPHEN 5-325 MG TABS 2 tabs by mouth three times daily for pain HYDROCODONE-ACETAMINOPHEN 99343972487 Active Mima Erazo [employer] Active HUMALOG KWIKPEN 100 UNIT/ML SC SOPN 20 units with breakfast, 10 units with lunch, 10 units with dinner, for diabetes INSULIN LISPRO (HUMAN ) 26745422716 Active Alina Castaneda MD PhD Active LATUDA 120 MG ORAL TABS 1 pill by mouth nightly LURASIDONE HCL 85195053076 Active Alina Castaneda MD PhD Active COLACE 100 MG CAPS 1 pill by mouth twice daily, for constipation DOCUSATE SODIUM 86424354471 Active Alina Castaneda MD PhD Active TRUETEST TEST STRP check blood sugars 3x/day GLUCOSE BLOOD 18381988435 Active Marvel Thurstonari DIRECTOR [facility] Active ACCU-CHEK ROSA UZMA Use device to check blood sugars BLOOD GLUCOSE MONITORING SUPPL 37982547744 No Longer Active Marvel Mackenzieglari LOPEZ Active ACCU-CHEK ROSA INVITR STRP use strips with device to check blood sugars 3 times daily GLUCOSE BLOOD 19873777870 No Longer Active Marvel MENDOZAP Active VERAPAMIL HCL ER 180 MG ORAL CR-TABS 1 pill by mouth twice daily, for migraine prevention VERAPAMIL HCL 67495796864 Active Alina Castaneda MD PhD Active CYCLOBENZAPRINE HCL 10 MG TABS 1 tablet by mouth three times daily, scheduled CYCLOBENZAPRINE HCL 31181404194 No Longer Active Alina Castaneda MD PhD Active HUMALOG 100 UNIT/ML SOLN Take 20 units with breakfast, 10u with lunch and suppetr. INSULIN LISPRO (HUMAN) 58074815834 No Longer Active Alina Castaneda MD PhD Active TRUETEST TEST STRP check sugars 4x/day GLUCOSE BLOOD 20391881384 No Longer Active Alina Castaneda MD PhD Active MORPHINE SULFATE 30 MG TABS 1 pill by mouth twice daily, for pain MORPHINE SULFATE 30431059585 Active Mima Erazo [employer] Active ACYCLOVIR 400 MG ORAL TABS 1 pill three times daily x 5 days, for cold sore outbreak ACYCLOVIR 15500667379 No Longer Active Alina Castaneda MD PhD Active PENICILLIN V POTASSIUM 500 MG TABS 1 pill by mouth three times daily PENICILLIN V POTASSIUM 93062646453 No Longer Active Alina Castaneda MD PhD Active UROXATRAL 10 MG [id number]-KZG Take 1 tablet by mouth daily ALFUZOSIN HCL 42241741761 No Longer Active Alina Castaneda MD PhD Active THIOTHIXENE 5 MG CAPS by mouth twice a day THIOTHIXENE 81664191095 No Longer Active Alina Castaneda MD PhD Active ZYPREXA 7.5 MG TABS 1 at HS OLANZAPINE 14308144961 No Longer Active Alina Castaneda MD PhD Active BD INSULIN SYRINGE 28G X 1/2" 1 ML MISC 1 four times per day INSULIN SYRINGE-NEEDLE U-100 13173512187 Active [facility] Gurdeepglestela [facility] Active DETROL LA 4 MG UG90I-WLV Take 1 tablet by mouth daily TOLTERODINE TARTRATE 95180801628 No Longer Active Alina Castaneda MD PhD Active TERESE CONTOUR TEST STRP monitor blood sugars 3x/day GLUCOSE BLOOD 80276862897 No Longer Active Alina Castaneda MD PhD Active EQL TRUETEST TEST STRP Test blood sugar TID GLUCOSE BLOOD 61324937768 No Longer Active Alina Castaneda MD PhD Active FLUTICASONE PROPIONATE 50 MCG/ACT SUSP 2 sprays each nostril qDay x 30 days FLUTICASONE PROPIONATE 94627176916 No Longer Active Alina Castaneda MD PhD Active IBUPROFEN 200 MG TABS 1 Q 6 hr. PRN IBUPROFEN 34672980199 No Longer Active Alina Castaneda MD PhD Active NIACIN ER 500 MG CR-TABS 4 qHS (for triglycerides) NIACIN 07859984866 No Longer Active Alina Castaneda MD PhD Active ALFUZOSIN HCL ER 10 MG UV78Q-QAW 1 tablet daily ALFUZOSIN HCL 39476043476 Active Vanessa Hickey MD Active SAPHRIS 5 MG SUBL by mouth twice a day ASENAPINE MALEATE 84161242885 No Longer Active Maliheh Ziglari DIRECTOR [facility] Active ACETAMINOPHEN 500 MG TABS 2 Q 6 hr. PRN ACETAMINOPHEN 50547236105 No Longer Active Maliheh Ziglari DIRECTOR [facility] Active ORPHENADRINE CITRATE ER 100 MG CU99A-MFF 1 every 12 hr. as needed ORPHENADRINE CITRATE 47681619920 No Longer Active Alina Castaneda MD PhD Active NIACIN CR 500 MG CR-TABS 2 qHS NIACIN 97265139488 No Longer Active Alina Castaneda MD PhD Active AMOXICILLIN 500 MG CAPS 2 po BID x 10 days AMOXICILLIN 58785951777 No Longer Active Alina Castaneda MD PhD Active HYDROCODONE-ACETAMINOPHEN 7.5-325 MG TABS 1 four times a day as needed for pain HYDROCODONE-ACETAMINOPHEN 73771302392 No Longer Active Alina Castaneda MD PhD Active DOXEPIN HCL 10 MG CAPS Take 1 tablet by mouth daily DOXEPIN HCL 28701920835 No Longer Active Salina ROJAS Active NAVANE 10 MG CAPS 1/2 tablet twice a day THIOTHIXENE No Longer Active Salina ROBBINSA Active CYCLOBENZAPRINE HCL 10 MG TABS 1/2 tablet by mouth every 8 hours as needed for muscle spasms CYCLOBENZAPRINE HCL 12294775358 No Longer Active Alina Castaneda MD PhD Active BACTROBAN 2 % CREAM apply to ear and nose twice daily MUPIROCIN CALCIUM 43360834015 No Longer Active Alina Castaneda MD PhD Active HYDROCODONE-ACETAMINOPHEN 5-325 MG TABS take one tablet by mouth every four hours as needed for pain HYDROCODONE-ACETAMINOPHEN 98850046463 No Longer Active Alina Castaneda MD PhD Active ZOLPIDEM TARTRATE 10 MG TABS take at bedtime ZOLPIDEM TARTRATE 00227911493 Active Alina Castaneda MD PhD Active ZYPREXA 5 MG TABS take one tablet by mouth every evening OLANZAPINE 26883243389 No Longer Active Alina Castaneda MD PhD Active ALBUTEROL SULFATE 0.083 % NEBU SOLN one vial per nebulizer TID and PRN cough/ soa ALBUTEROL SULFATE 20558492275 No Longer Active Alina Castaneda MD PhD Active GUAIFENESIN 600 MG ST95I-LUY 1 tablet by mouth twice daily if needed for cough GUAIFENESIN 63957860758 No Longer Active Marvel MARROQUIN Active AZITHROMYCIN 500 MG SOLR 1 po q day AZITHROMYCIN 40880159815 No Longer Active Alina Castaneda MD PhD Active PROMETHAZINE-CODEINE 6.25-10 MG/5ML SYRP 1 tsp po q 6 hours prn cough PROMETHAZINE-CODEINE 71599043028 No Longer Active Alina Castaneda MD PhD Active CEFDINIR 300 MG CAPS by mouth twice a day CEFDINIR 34790706464 No Longer Active Alina Castaneda MD PhD Active METFORMIN HCL 500 MG [id number]-PUY Take 3 tablets by mouth everyday METFORMIN HCL 74029638432 No Longer Active Alina Castaneda MD PhD Active LEVEMIR 100 UNIT/ML SOLN 90 units SQ qHS INSULIN DETEMIR 22126698698 No Longer Active Marvel MARROQUIN Active TOPROL XL 100 MG PP51I-WPM 1 @ HS METOPROLOL SUCCINATE 96640952554 No Longer Active Marvel MARROQUIN Active ALLOPURINOL 300 MG TABS Take one by mouth daily ALLOPURINOL 41979232720 Active Alina Castaneda MD PhD Active ZYPREXA 10 MG TABS Take one by mouth daily OLANZAPINE 32337824299 No Longer Active Alina Castaneda MD PhD Active NOVOLOG 100 UNIT/ML SOLN 40 units with every meal INSULIN ASPART 00855924040 No Longer Active Ailna Castaneda MD PhD Active VERAPAMIL HCL CR 120 MG TAB CR 1 qPM VERAPAMIL HCL 62279798068 No Longer Active Salina ROJAS Active ZYPREXA 15 MG TABS Take 1 tablet by mouth daily OLANZAPINE 24020877497 No Longer Active Marvel MARROQUIN Active LISINOPRIL 20 MG TABS 1 BID LISINOPRIL 32109081179 Active Alina Castaneda MD PhD Active ALBUTEROL SULFATE (2.5 MG/3ML) 0.083% NEBU 1 neb tid and prn cough ALBUTEROL SULFATE 02981496205 No Longer Active Alina Castaneda MD PhD Active TRAVATAN Z 0.004 % SOLN 1 gtt each eye daily TRAVOPROST 06968028894 Active CRYSTAL Suarez Active LANTUS 100 UNIT/ML SOLN 60 units sq q hs INSULIN GLARGINE 21073922757 No Longer Active CRYSTAL Suarez Active ALBUTEROL SULFATE (2.5 MG/3ML) 0.083% NEBU 1 neb tid and prn cough ALBUTEROL SULFATE (2.5 MG/3ML) 0.083% NEBU 510905 ALBUTEROL SULFATE Inactive ZYPREXA 15 MG TABS Take 1 tablet by mouth daily ZYPREXA 15 MG TABS 359128 OLANZAPINE Inactive VERAPAMIL HCL CR 120 MG TAB CR 1 qPM VERAPAMIL HCL CR 120 MG TAB CR VERAPAMIL HCL Inactive ZYPREXA 10 MG TABS Take one by mouth daily ZYPREXA 10 MG TABS 388168 OLANZAPINE Inactive TOPROL XL 100 MG [id number] 1 @ HS TOPROL XL 100 MG XH34O-HDQ METOPROLOL SUCCINATE Inactive LEVEMIR 100 UNIT/ML SOLN 90 units SQ qHS LEVEMIR 100 UNIT/ML SOLN INSULIN DETEMIR Inactive PROMETHAZINE-CODEINE 6.25-10 MG/5ML SYRP 1 tsp po q 6 hours prn cough PROMETHAZINE-CODEINE 6.25-10 MG/5ML SYRP 498303 PROMETHAZINE- CODEINE Inactive GUAIFENESIN 600 MG CT82A-YSU 1 tablet by mouth twice daily if needed for cough GUAIFENESIN 600 MG AA24F-XHM GUAIFENESIN Inactive ALBUTEROL SULFATE 0.083 % NEBU SOLN one vial per nebulizer TID and PRN cough/ soa ALBUTEROL SULFATE 0.083 % NEBU SOLN 907008 ALBUTEROL SULFATE Inactive ZYPREXA 5 MG TABS take one tablet by mouth every evening ZYPREXA 5 MG TABS 122039 OLANZAPINE Inactive HYDROCODONE-ACETAMINOPHEN 5-325 MG TABS take one tablet by mouth every four hours as needed for pain HYDROCODONE-ACETAMINOPHEN 5-325 MG TABS 841836 HYDROCODONE-ACETAMINOPHEN Inactive BACTROBAN 2 % CREAM apply to ear and nose twice daily BACTROBAN 2 % CREAM 398711 MUPIROCIN CALCIUM Inactive CYCLOBENZAPRINE HCL 10 MG TABS 1/2 tablet by mouth every 8 hours as needed for muscle spasms CYCLOBENZAPRINE HCL 10 MG TABS 474020 CYCLOBENZAPRINE HCL Inactive NAVANE 10 MG CAPS 1/2 tablet twice a day NAVANE 10 MG CAPS THIOTHIXENE Inactive DOXEPIN HCL 10 MG CAPS Take 1 tablet by mouth daily DOXEPIN HCL 10 MG CAPS 8443307 DOXEPIN HCL Inactive HYDROCODONE-ACETAMINOPHEN 7.5-325 MG TABS 1 four times a day as needed for pain HYDROCODONE-ACETAMINOPHEN 7.5-325 MG TABS 246709 HYDROCODONE-ACETAMINOPHEN Inactive NIACIN CR 500 MG CR-TABS 2 qHS NIACIN CR 500 MG CR- TABS NIACIN Inactive ORPHENADRINE CITRATE ER 100 MG VB97E-ZXH 1 every 12 hr. as needed ORPHENADRINE CITRATE ER 100 MG [id number]-NET ORPHENADRINE CITRATE Inactive ACETAMINOPHEN 500 MG TABS 2 Q 6 hr. PRN ACETAMINOPHEN 500 MG TABS 673936 ACETAMINOPHEN Inactive SAPHRIS 5 MG SUBL by mouth twice a day SAPHRIS 5 MG SUBL ASENAPINE MALEATE Inactive NIACIN ER 500 MG CR-TABS 4 qHS (for triglycerides) NIACIN ER 500 MG CR-TABS NIACIN Inactive IBUPROFEN 200 MG TABS 1 Q 6 hr. PRN IBUPROFEN 200 MG TABS 019233 IBUPROFEN Inactive FLUTICASONE PROPIONATE 50 MCG/ACT SUSP 2 sprays each nostril qDay x 30 days FLUTICASONE PROPIONATE 50 MCG/ACT SUSP 516466 FLUTICASONE PROPIONATE Inactive EQL TRUETEST TEST STRP Test blood sugar TID EQL TRUETEST TEST STRP GLUCOSE BLOOD Inactive TERESE CONTOUR TEST STRP monitor blood sugars 3x/day TERESE CONTOUR TEST STRP GLUCOSE BLOOD Inactive DETROL LA 4 MG SM17S-TUC Take 1 tablet by mouth daily DETROL LA 4 MG FH19R-YEV TOLTERODINE TARTRATE Inactive ZYPREXA 7.5 MG TABS 1 at HS ZYPREXA 7.5 MG TABS 956116 OLANZAPINE Inactive THIOTHIXENE 5 MG CAPS by mouth twice a day THIOTHIXENE 5 MG CAPS 566101 THIOTHIXENE Inactive UROXATRAL 10 MG [id number]-XEI Take 1 tablet by mouth daily UROXATRAL 10 MG EP40F-WNJ ALFUZOSIN HCL Inactive ACYCLOVIR 400 MG ORAL TABS 1 pill three times daily x 5 days, for cold sore outbreak ACYCLOVIR 400 MG ORAL TABS 269335 ACYCLOVIR Inactive TRUETEST TEST STRP check sugars 4x/day TRUETEST TEST STRP GLUCOSE BLOOD Inactive HUMALOG 100 UNIT/ML SOLN Take 20 units with breakfast, 10u with lunch and suppetr. HUMALOG 100 UNIT/ML SOLN INSULIN LISPRO ( HUMAN) Inactive CYCLOBENZAPRINE HCL 10 MG TABS 1 tablet by mouth three times daily, scheduled CYCLOBENZAPRINE HCL 10 MG TABS 856797 CYCLOBENZAPRINE HCL Inactive ACCU-CHEK ROSA INVITR STRP use strips with device to check blood sugars 3 times daily ACCU-CHEK ROSA INVITR STRP GLUCOSE BLOOD Inactive ACCU-CHEK ROSA UZMA Use device to check blood sugars ACCU-CHEK ROSA UZMA BLOOD GLUCOSE MONITORING SUPPL Inactive FLUVOXAMINE MALEATE 100 MG ORAL TABS Take 1/2 tab at noon FLUVOXAMINE MALEATE 100 MG ORAL TABS 977831 FLUVOXAMINE MALEATE Inactive FLUVOXAMINE MALEATE 100 MG TABS Take one (1) tablet by mouth am, 1/2 at noon FLUVOXAMINE MALEATE 100 MG TABS 268507 FLUVOXAMINE MALEATE Inactive BACTROBAN 2 % CREAM Apply to affected area BID for up to 10 days BACTROBAN 2 % CREAM 910982 MUPIROCIN CALCIUM Inactive NOVOFINE 32G X 6 MM MISC use one four times per day NOVOFINE 32G X 6 MM MISC INSULIN PEN NEEDLE Inactive TRAZODONE HCL 100 MG ORAL TABS 1 tab by mouth for sleep TRAZODONE HCL 100 MG ORAL TABS 115981 TRAZODONE HCL Inactive LOVAZA 1 GM CAPS 4 daily (for triglycerides) LOVAZA 1 GM CAPS 685529 KNVWR-9-LDMV ETHYL ESTERS Inactive METFORMIN HCL ER 500 MG MT38Z-WYX Take three tablets by mouth everyday METFORMIN HCL ER 500 MG NH44O-WNP METFORMIN HCL Inactive METOPROLOL SUCCINATE 100 MG BL45Y-BHO 1 by mouth daily for blood pressure METOPROLOL SUCCINATE 100 MG UI79L-CJI METOPROLOL SUCCINATE Inactive AMITIZA 24 MCG ORAL CAPS Take one capsule BID for constipation. AMITIZA 24 MCG ORAL CAPS LUBIPROSTONE Inactive TOLTERODINE TARTRATE 2 MG TABS 1 pill twice daily, for bladder TOLTERODINE TARTRATE 2 MG TABS 436122 TOLTERODINE TARTRATE Inactive CEFDINIR 300 MG CAPS by mouth twice a day CEFDINIR 300 MG CAPS 803790 CEFDINIR Inactive AZITHROMYCIN 500 MG SOLR 1 po q day AZITHROMYCIN 500 MG SOLR 52464442796 AZITHROMYCIN Inactive AMOXICILLIN 500 MG CAPS 2 po BID x 10 days AMOXICILLIN 500 MG CAPS 649436 AMOXICILLIN Inactive PENICILLIN V POTASSIUM 500 MG TABS 1 pill by mouth three times daily PENICILLIN V POTASSIUM 500 MG TABS 309480 PENICILLIN V POTASSIUM Inactive KEFLEX 500 MG CAP 1 po BID x 7 days KEFLEX 500 MG CAP 225637 CEPHALEXIN Inactive Immunizations Vaccine Administration Date Value [...] Fluvirin, Fluarix, Agriflu(>=18 yo)) Fluzone (>3 yrs.) [[id number]] Influenza, seasonal, injectable pneumococcal immunization administered Pneumovax [...] MICROALBUMIN - Chemistry sodium, serum 137 mmol/L 333-711 5421/05/19 potassium, serum 5.2 mmol/L 3.5-5.2 chloride, serum [...] Panel - Chemistry sodium, serum 137 mmol/L 444-745 4971/10/12 potassium, serum 4.8 mmol/L 3.5-5.2 chloride, serum 102 mmol/L 98-107 carbon dioxide, venous blood 27.6 mmol/L 21.0-32.0 blood glucose 168 mg/dL 65-110 calcium, serum 9.0 mg/dL 8.5-10.1 urea nitrogen, blood 15 mg/dL 7-18 creatinine, serum 1.04 mg/dL 0.55-1.30 sodium, serum 138 mmol/L 305-968 4434/11/11 potassium, serum 4.7 mmol/L 3.5-5.2 chloride, serum [...] % 11.6-14.8 platelet count 252 10^3/MM^3 10*3/mm3 323-225 1594/10/12 leukocyte count, blood 5.8 10^3/MM^3 10*3/mm3 4.6-10.2 [...] 240 10^3/MM^3 10*3/mm3 142-424 Lab Report: Chlamydia/GC APTIMA/35554, HIV-1/2 Agn/Dominga/80898, RPR (DX) W ... - Chemistry hepatitis B surface antigen NON-REACTIVE NON-REACTIVE Lab Report: Chlamydia/GC APTIMA/12533, HIV-1/2 Agn/Dominga/71509, RPR (DX) W ... - Lab chlamydia DNA probe NOT DETECTED NOT DETECTED Lab Report: Chlamydia/GC APTIMA/01214, HIV-1/2 Agn/Dominga/48845, RPR (DX) W ... - Microbiology Neisseria gonorrhoeae DNA probe NOT DETECTED NOT DETECTED Lab Report: Chlamydia/GC APTIMA/09338, HIV-1/2 Agn/Dominga/19527, RPR (DX) W ... - Serology rapid plasma reagin antibody titer NON-REACTIVE NON-REACTIVE Lab Report: HGBA1C - Chemistry hemoglobin A1C, blood, as % of total hemoglobin 6.1 % 4.3-6.0 hemoglobin A1C, blood, as % of total hemoglobin 6.3 % 4.3-6.0 Lab Report: Lipid Panel, HEPATIC PANEL, MICROALBUMIN, CBC - Chemistry cholesterol, serum 131 mg/dL 679-212 7764/06/03 triglyceride, serum, fasting 383 mg/dL 30-200 HDL [...] 4.7 mg/dL 2.6-7.2 cholesterol, serum 142 mg/dL 672-832 0144/06/26 triglyceride, serum, fasting 272 mg/dL 30-200 HDL [...] negative Encounters Code Encounter Date Provider Facility CPT-65831 Level 3 Est. Patient 14:39:00 PLASTIC SURGEON Vanessa Hickey MD [facility] CPT-79158 Level 2 Est. Patient 18:43:34 CDT Mima Erazo [facility] CPT-27742 Level 3 Est. Patient 16:22:09 CDT Cherelle Avila [facility] CPT-43099 Level 4 Est. Patient 17:55:14 CDT Mima Erazo [facility] CPT-11449 Level 2 Est. Patient 17:13:21 CDT Alina Castaneda MD PhD [facility] CPT-69693 Level 3 Est. Patient 14:46:15 CDT Vanessa Hickey MD [facility] CPT-21819 Level 3 Est. Patient 09:34:56 CDT Alina Castaneda MD [facility]-66293 Level 3 Est. Patient 21:40:19 CDT Mima Erazo [facility]-17660 Level 3 Est. Patient 09:26:40 CDT Marvel Charles [facility]-80260 Level 3 Est. Patient 12:36:43 CDT Vanessa Hickey MD [facility]-67231 Level 3 Est. Patient 12:57:49 CDT Vanessa Hickey MD [facility]-09675 Level 3 Est. Patient 00:28:25 CDT Alina Castaneda MD [facility]99024 Level 2 Est. Patient 12:52:14 CDT Alina Castaneda MD [facility]-85770 Level 3 Est. Patient 11:51:18 PLASTIC SURGEON Alina Castaneda MD [facility] CPT-59145 Level 3 Est. Patient 10:09:22 PLASTIC SURGEON Alina Castaneda MD [facility]-67771 Level 3 Est. Patient 14:36:26 PLASTIC SURGEON Marvel Charles [facility] CPT-39236 Level 3 Est. Patient 13:34:47 PLASTIC SURGEON Alina Castaneda MD [facility]-68709 Level 3 Est. Patient 19:52:08 PLASTIC SURGEON Alina Castaneda MD [facility] CPT-39472 Level 3 Est. Patient 10:01:51 PLASTIC SURGEON Marvel Charles [facility]-83132 Level 3 Est. Patient 21:54:06 CDT Vanessa Hickey MD [facility]-19848 Level 3 Est. Patient 08:54:46 CDT Alina Castaneda MD [facility]-07577 Level 3 Est. Patient 09:32:11 CDT Marvel Charles [facility]-88763 Level 3 Est. Patient 12:02:49 CDT Alina Castaneda MD [facility]-26457 Level 3 Est. Patient 19:17:33 CDT Alina Castaneda MD [facility]-84106 Level 3 Est. Patient 13:19:10 CDT Marvel Gurdeepajayestela [facility]-74750 Level 3 Est. Patient 08:20:05 CDT Alina Castaneda MD [facility]-68079 Level 3 Est. Patient 15:17:18 CDT Alina Castaneda MD [facility]-65439 Level 3 Est. Patient 14:25:36 PLASTIC SURGEON Marvel Charles [facility]-34311 Level 3 Est. Patient 10:09:15 PLASTIC SURGEON [facility]21278 Level 3 Est. Patient 21:28:43 CDT Alina Castaneda MD [facility]-90721 Level 3 Est. Patient 15:20:11 CDT Marvel Araceli [facility]-73424 Level 4 Est. Patient 19:08:12 CDT Alina Castaneda MD [facility]-41434 Level 3 Est. Patient 15:06:39 CDT Brookslashondanivia Araceli [facility]-31901 Level 4 Est. Patient 17:48:15 CDT Alina Castaneda MD [facility]-46881 Level 3 Est. Patient 14:53:49 CDT Alina Castaneda MD [facility]-88429 Level 3 Est. Patient 09:35:16 CDT Alina Castaneda MD [facility]-09933 Level 3 Est. Patient 12:23:22 CDT Alina Castaneda MD [facility]10519 Level 3 Est. Patient 16:19:15 CDT Alina Castaneda MD [facility]-48654 Level 3 Est. Patient 21:39:56 PLASTIC SURGEON Alina Castaneda MD [facility]-60247 Level 4 Est. Patient 14:12:56 PLASTIC SURGEON Alina Castaneda MD [facility]99341 Level 2 Est. Patient 15:34:57 PLASTIC SURGEON Alina Castaneda MD [facility]-89018 Level 3 Est. Patient 12:17:04 PLASTIC SURGEON Alina Castaneda [facility] [facility] Level 3 Est. Patient 09:18:18 PLASTIC SURGEON [facility]-76842 Level 2 Est. Patient 21:50:24 CDT Alina Castaneda MD [facility]-13119 Level 3 Est. Patient 09:17:28 CDT [facility]-16128 Level 4 Est. Patient 18:54:02 CDT Alina Castaneda MD [facility]-24903 Level 3 Est. Patient 10:47:10 CDT Alina Castaneda MD [facility]11527 Level 3 Est. Patient 09:22:20 CDT [facility]-72590 Level 3 Est. Patient 16:39:43 CDT Marvel [facility] CPT-12047 Level 3 Est. Patient 16:05:16 CDT Alina Castaneda MD [facility] CPT-27874 Level 3 Est. Patient 00:29:15 CDT Alina Castaneda MD [facility] CPT-02239 Level 3 Est. Patient 10:49:22 PLASTIC SURGEON Marvel [facility] CPT-83987 Level 3 Est. Patient 21:30:19 PLASTIC SURGEON Alina Castaneda MD [facility] CPT-53246 Level 4 Est. Patient 17:04:11 PLASTIC SURGEON Marvel [facility]stonest[facility] CPT-84375 Level 3 Est. Patient 15:34:11 [facility]31078 Level 2 Est. Patient 12:51:58 PLASTIC SURGEON Alina Castaneda MD [facility] CPT-30118 Level 3 Est. Patient 13:20:01 PLASTIC SURGEON Alina Castaneda MD [facility] CPT-90117 Level 3 Est. Patient 09:23:35 CDT Alina Castaneda MD 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
--- OUTSIDE RECORDS SUMMARY | 2018-07-02 18:50 | XMS REPORT | Clinical Summary ---
Author Author Admin, TERELL Organization [facility] [place] [employer] Address Unknown Phone Unavailable Allergies, Adverse Reactions, 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 Erazo TEST HOLE DRILLER Benign paroxysmal positional vertigo Vertigo, benign paroxysmal position 386.11 Inactive Mima Erazo TEST HOLE DRILLER Benign paroxysmal positional vertigo High-risk sexual behavior V69.2 Active Alina Castaneda MD PhD High-risk sexual behavior Erectile dysfunction 302.72 Active Alina Castaneda MD PhD Psychosexual dysfunction with inhibited sexual excitement Constipation 564.00 Active Alina Castaneda MD PhD Constipation, unspecified Skin lesion 709.9 Active Alina Castaneda MD PhD Unspecified disorder of skin and subcutaneous tissue Malaise and fatigue 780.79 Active Cherelle Speaks TEST HOLE DRILLER Other malaise and fatigue Diarrhea 787.91 Active Cherelle Speaks TEST HOLE DRILLER Diarrhea PHARYNGITIS 462 Active Cherelle Speaks TEST HOLE DRILLER Acute pharyngitis Colitis 558.9 Active Mima Erazo TEST HOLE DRILLER Other and unspecified noninfectious gastroenteritis and colitis [...] CR-TABS Take one capsule BID MORPHINE SULFATE 62154537101 Active Mima Erazo APRN Active TRUEPLUS LANCETS 30G MISC 3x a day LANCETS 04766975137 Active Marvel MARROQUIN Active TRUE METRIX METER W/DEVICE KIT Check blood sugars 3x/day BLOOD GLUCOSE MONITORING SUPPL 13032221607 Active Marvel MARROQUIN Active TRUE METRIX BLOOD GLUCOSE TEST INVITR STRP Check blood sugars 3x/day. GLUCOSE BLOOD 46058055454 Active Marvel MARROQUIN Active VITAMIN D 2000 UNIT ORAL CAPS Take one by mouth daily CHOLECALCIFEROL 39656765532 Active Mima Erazo APRN Active LATUDA 60 MG ORAL TABS Take one by mouth daily LURASIDONE HCL 82113497606 No Longer Active Mima Yokum TEST HOLE DRILLER Active HUMALOG KWIKPEN 100 UNIT/ML SC SOPN sliding scale if needed INSULIN LISPRO (HUMAN) 09915527150 Active Mimacecily Erazo TEST HOLE DRILLER Active TRAZODONE HCL 100 MG TABS 1 every night to prevent headaches TRAZODONE HCL 36013089799 Active Gabrielle Madl WASTEWATER SUPERINTENDENT Active LATUDA 60 MG ORAL TABS 1 tab daily LURASIDONE HCL 71589132214 Active Gabrielle Madl WASTEWATER SUPERINTENDENT Active CLONAZEPAM 1 MG TABS 1 pill by mouth three times daily CLONAZEPAM 93422784144 Active Gabrielle Madl WASTEWATER SUPERINTENDENT Active [facility] MILK OF MAGNESIA 400 MG/5ML ORAL SUSP 30ml by mouth bid prn MAGNESIUM HYDROXIDE 73429268571 Active Mason Loredo MD Active TYLENOL 8 HOUR 650 MG ORAL CR-TABS 1 tab QID prn ACETAMINOPHEN 74267884647 Active Mason Loredo MD Active MYLANTA GAS RELIEF MAXIMUM STR 125 MG ORAL CAPS 30cc every 4 hours prn 12/01 SIMETHICONE 66830627279 Active Mason Loredo MD Active IMODIUM A-D 2 MG ORAL TABS 1 tab QID as needed LOPERAMIDE HCL 54383049767 Active Mason Loredo MD Active FLUVOXAMINE MALEATE 50 MG ORAL TABS 1 tab by mouth daily FLUVOXAMINE MALEATE 75923117737 Active Mason Loredo MD Active TRAVATAN Z 0.004 % SOLN 1 gtt each eye daily TRAVOPROST 18080815225 No Longer Active Mason Loredo MD Active LISINOPRIL 20 MG TABS 1 BID LISINOPRIL 44090358725 No Longer Active Mason Loredo MD Active LEVEMIR FLEXTOUCH 100 UNIT/ML SC SOPN 60 units SQ each evening, for diabetes INSULIN DETEMIR 17866680320 Active Mima Erazo APRN Active ZOLPIDEM TARTRATE 10 MG TABS take at bedtime ZOLPIDEM TARTRATE 91883663465 No Longer Active Mason Loredo MD Active HYDROCODONE-ACETAMINOPHEN 5-325 MG TABS 2 tabs by mouth three times daily for pain HYDROCODONE-ACETAMINOPHEN 49093494803 No Longer Active Mason Loredo MD Active ZOFRAN 4 MG TABS 1 po q4hr PRN Nausea ONDANSETRON HCL 31913969994 No Longer Active Mason Loredo MD Active LOMOTIL 2.5-0.025 MG ORAL TABS take 1-2 tabs PO after each stool, no more than 8 in 24 hours DIPHENOXYLATE-ATROPINE 73704187477 No Longer Active Mason Loredo MD Active COLACE 100 MG CAPS 1 pill by mouth twice daily, for constipation DOCUSATE SODIUM 44541224807 No Longer Active Mima Erazo APRN Active FLONASE ALLERGY RELIEF 50 MCG/ACT NASAL SUSP One spray each nostril BID x 1 week then daily FLUTICASONE PROPIONATE 34986238621 Active Mima Erazo APRN Active BD PEN NEEDLE MINI U/F 31G X 5 MM MISC 4 a day INSULIN PEN NEEDLE 36673096590 Active Maljohn Ziglari VENDOR QUALITY SUPERVISOR Active AMITIZA 24 MCG ORAL CAPS Take one capsule BID for constipation LUBIPROSTONE 57161685446 Active Mima Erazo APRN Active TRUEPLUS LANCETS 30G MISC 3 a day LANCETS 28251046285 Active Marvel Mackenzieglestela VENDOR QUALITY SUPERVISOR Active TOLTERODINE TARTRATE 2 MG TABS 1 pill twice daily, for bladder TOLTERODINE TARTRATE 46690248561 No Longer Active Vanessa Hickey MD Active AMITIZA 24 MCG ORAL CAPS Take one capsule BID for constipation. LUBIPROSTONE 51760320383 No Longer Active Vanessa Hickey MD Active FLUVOXAMINE MALEATE 100 MG ORAL TABS take one tab every AM et HS, and take 1/ 2 tab at noon FLUVOXAMINE MALEATE 70516709541 Active Grace ROJAS Active METOPROLOL SUCCINATE 100 MG [id number]-VSU 1 by mouth daily for blood pressure METOPROLOL SUCCINATE 00573977136 No Longer Active Grace Azam RMA Active METFORMIN HCL ER 500 MG [id number] Take three tablets by mouth everyday METFORMIN HCL 75631598700 No Longer Active Grace Azam RMA Active LOVAZA 1 GM CAPS 4 daily (for triglycerides) OMEGA-3- ACID ETHYL ESTERS 31299674279 No Longer Active Grace Azam RMA Active TRAZODONE HCL 100 MG ORAL TABS 1 tab by mouth for sleep TRAZODONE HCL 38715852172 No Longer Active Grace Azam RMA Active NOVOFINE 32G X 6 MM MISC use one four times per day INSULIN PEN NEEDLE 34259410277 No Longer Active Grace Azam RMA Active BACTROBAN 2 % CREAM Apply to affected area BID for up to 10 days MUPIROCIN CALCIUM 29485336631 No Longer Active Grace Azam RMA Active KEFLEX 500 MG CAP 1 po BID x 7 days CEPHALEXIN 10031816125 No Longer Active Cherelle Avila TEST HOLE DRILLER Active FLUVOXAMINE MALEATE 100 MG TABS Take one (1) tablet by mouth am, 1/2 at noon FLUVOXAMINE MALEATE 65244902208 No Longer Active Mima Erazo APRN Active CORICIDIN HBP CONGESTION/COUGH 10-200 MG ORAL CAPS Take as directed on box as needed for cold/flu symptoms DEXTROMETHORPHAN-GUAIFENESIN 20190439872 Active Cherelle Speaks TEST HOLE DRILLER Active OMEGA-3 300 MG ORAL CAPS 4 caps by mouth daily OMEGA-3 FATTY ACIDS 33206212118 Active Mima Yokum TEST HOLE DRILLER Active FLUVOXAMINE MALEATE 100 MG ORAL TABS Take 1/2 tab at noon FLUVOXAMINE MALEATE 27852364385 No Longer Active Cherelle Speaks TEST HOLE DRILLER Active [facility] LUBRICANT EYE DROPS 0.4-0.3 % OPHTH SOLN POLYETHYL GLYCOL-PROPYL GLYCOL 93057073886 Active Mima Yokum TEST HOLE DRILLER Active MIRALAX POWD 17g by mouth daily, for constipation POLYETHYLENE GLYCOL 3350 15383437432 Active Alina Castaneda MD PhD Active TRUETEST TEST STRP check blood sugars 3x/day GLUCOSE BLOOD 81671310693 Active Maljohn Ziglari VENDOR QUALITY SUPERVISOR Active ACCU-CHEK ROSA UZMA Use device to check blood sugars BLOOD GLUCOSE MONITORING SUPPL 89541475725 No Longer Active Maliheh Ziglari VENDOR QUALITY SUPERVISOR Active ACCU-CHEK ROSA INVITR STRP use strips with device to check blood sugars 3 times daily GLUCOSE BLOOD 46626868920 No Longer Active Maljohn Mackenzieglari VENDOR QUALITY SUPERVISOR Active VERAPAMIL HCL ER 180 MG ORAL CR-TABS 1 pill by mouth twice daily, for migraine prevention VERAPAMIL HCL 30907536686 Active Mima Erazo APRN Active CYCLOBENZAPRINE HCL 10 MG TABS 1 tablet by mouth three times daily, scheduled CYCLOBENZAPRINE HCL 32666075759 No Longer Active Alina Castaneda MD PhD Active HUMALOG 100 UNIT/ML SOLN Take 20 units with breakfast, 10u with lunch and suppetr. INSULIN LISPRO (HUMAN) 72195481395 No Longer Active Alina Castaneda MD PhD Active TRUETEST TEST STRP check sugars 4x/day GLUCOSE BLOOD 91017897764 No Longer Active Alina Castaneda MD PhD Active MORPHINE SULFATE 30 MG TABS 1 pill by mouth twice daily, for pain MORPHINE SULFATE 24828348392 No Longer Active Mason Loredo MD Active ACYCLOVIR 400 MG ORAL TABS 1 pill three times daily x 5 days, for cold sore outbreak ACYCLOVIR 74667270179 No Longer Active Alina Castaneda MD PhD Active PENICILLIN V POTASSIUM 500 MG TABS 1 pill by mouth three times daily PENICILLIN V POTASSIUM 15719934926 No Longer Active Alina Castaneda MD PhD Active UROXATRAL 10 MG [id number]-JIZ Take 1 tablet by mouth daily ALFUZOSIN HCL 78066658702 No Longer Active Alina Castaneda MD PhD Active THIOTHIXENE 5 MG CAPS by mouth twice a day THIOTHIXENE 73343441254 No Longer Active Alina Castaneda MD PhD Active ZYPREXA 7.5 MG TABS 1 at HS OLANZAPINE 37046383976 No Longer Active Alina Castaneda MD PhD Active BD INSULIN SYRINGE 28G X 1/2" 1 ML MISC 1 four times per day INSULIN SYRINGE-NEEDLE U-100 54420832421 Active Maliheh Ziglari VENDOR QUALITY SUPERVISOR Active DETROL LA 4 MG [id number] Take 1 tablet by mouth daily TOLTERODINE TARTRATE 84915661453 No Longer Active Alina Castaneda MD PhD Active TERESE CONTOUR TEST STRP monitor blood sugars 3x/day GLUCOSE BLOOD 64764316229 No Longer Active Alina Castaneda MD PhD Active EQL TRUETEST TEST STRP Test blood sugar TID GLUCOSE BLOOD 61383871697 No Longer Active Alina Castaneda MD PhD Active FLUTICASONE PROPIONATE 50 MCG/ACT SUSP 2 sprays each nostril qDay x 30 days FLUTICASONE PROPIONATE 44406706522 No Longer Active Alina Castaneda MD PhD Active IBUPROFEN 200 MG TABS 1 Q 6 hr. PRN IBUPROFEN 90110104130 No Longer Active Alina Castaneda MD PhD Active NIACIN ER 500 MG CR-TABS 4 qHS (for triglycerides) NIACIN 35199431046 No Longer Active Alina Castaneda MD PhD Active ALFUZOSIN HCL ER 10 MG [id number] 1 tablet daily ALFUZOSIN HCL 43410418200 Active Mima Yokum TEST HOLE DRILLER Active SAPHRIS 5 MG SUBL by mouth twice a day ASENAPINE MALEATE 50882338911 No Longer Active Malbop.fm Ziglari VENDOR QUALITY SUPERVISOR Active ACETAMINOPHEN 500 MG TABS 2 Q 6 hr. PRN ACETAMINOPHEN 14083325631 No Longer Active Maliheh Ziglari VENDOR QUALITY SUPERVISOR Active ORPHENADRINE CITRATE ER 100 MG [id number] 1 every 12 hr. as needed ORPHENADRINE CITRATE 73117904093 No Longer Active Alina Castaneda MD PhD Active NIACIN CR 500 MG CR-TABS 2 qHS NIACIN 55686913171 No Longer Active Alina Castaneda MD PhD Active AMOXICILLIN 500 MG CAPS 2 po BID x 10 days AMOXICILLIN 92706591192 No Longer Active Alina Castaneda MD PhD Active HYDROCODONE-ACETAMINOPHEN 7.5-325 MG TABS 1 four times a day as needed for pain HYDROCODONE-ACETAMINOPHEN 99353169069 No Longer Active Alina Castaneda MD PhD Active DOXEPIN HCL 10 MG CAPS Take 1 tablet by mouth daily DOXEPIN HCL 58256499286 No Longer Active Salina Han A Active NAVANE 10 MG CAPS 1/2 tablet twice a day THIOTHIXENE No Longer Active Salina Han [facility] Active CYCLOBENZAPRINE HCL 10 MG TABS 1/2 tablet by mouth every 8 hours as needed for muscle spasms CYCLOBENZAPRINE HCL 79510244856 No Longer Active Alina Castaneda MD PhD Active BACTROBAN 2 % CREAM apply to ear and nose twice daily MUPIROCIN CALCIUM 61986602843 No Longer Active Alina Castaneda MD PhD Active HYDROCODONE-ACETAMINOPHEN 5-325 MG TABS take one tablet by mouth every four hours as needed for pain HYDROCODONE-ACETAMINOPHEN 22822845520 No Longer Active Alina Castaneda MD PhD Active ZYPREXA 5 MG TABS take one tablet by mouth every evening OLANZAPINE 07463662477 No Longer Active Alina Castaneda MD PhD Active ALBUTEROL SULFATE 0.083 % NEBU SOLN one vial per nebulizer TID and PRN cough/ soa ALBUTEROL SULFATE 54331763186 No Longer Active Alina Castaneda MD PhD Active GUAIFENESIN 600 MG [id number] 1 tablet by mouth twice daily if needed for cough GUAIFENESIN 27374361107 No Longer Active Marvel MARROQUIN Active AZITHROMYCIN 500 MG SOLR 1 po q day AZITHROMYCIN 98986909092 No Longer Active Alina Castaneda MD PhD Active PROMETHAZINE-CODEINE 6.25-10 MG/5ML SYRP 1 tsp po q 6 hours prn cough PROMETHAZINE-CODEINE 58594730763 No Longer Active Alina Castaneda MD PhD Active CEFDINIR 300 MG CAPS by mouth twice a day CEFDINIR 39790984953 No Longer Active Alina Castaneda MD PhD Active METFORMIN HCL 500 MG [id number]-CMP Take 3 tablets by mouth everyday METFORMIN HCL 82321063254 No Longer Active Alina Castaneda MD PhD Active LEVEMIR 100 UNIT/ML SOLN 90 units SQ qHS INSULIN DETEMIR 70254050100 No Longer Active Marvel MARROQUIN Active TOPROL XL 100 MG [id number]-RSE 1 @ HS METOPROLOL SUCCINATE 68928911281 No Longer Active Marvel MARROQUIN Active ALLOPURINOL 300 MG TABS Take one by mouth daily ALLOPURINOL 11344817424 Active Mima Erazo TEST HOLE DRILLER Active ZYPREXA 10 MG TABS Take one by mouth daily OLANZAPINE 61965151889 No Longer Active Alina Castaneda MD PhD Active NOVOLOG 100 UNIT/ML SOLN 40 units with every meal INSULIN ASPART 32662743216 No Longer Active Alina Castaneda MD PhD Active VERAPAMIL HCL CR 120 MG TAB CR 1 qPM VERAPAMIL HCL 91055792059 No Longer Active Salina ROBBINS Active ZYPREXA 15 MG TABS Take 1 tablet by mouth daily OLANZAPINE 45390989290 No Longer Active Marvel MARROQUIN Active ALBUTEROL SULFATE (2.5 MG/3ML) 0.083% NEBU 1 neb tid and prn cough ALBUTEROL SULFATE 32678036029 No Longer Active Alina Castaneda MD PhD Active LANTUS 100 UNIT/ML SOLN 60 units sq q hs INSULIN GLARGINE 82852913714 No Longer Active CRYSTAL Suarez Active ALBUTEROL SULFATE (2.5 MG/3ML) 0.083% NEBU 1 neb tid and prn cough ALBUTEROL SULFATE (2.5 MG/3ML) 0.083% NEBU 298586 ALBUTEROL SULFATE Inactive ZYPREXA 15 MG TABS Take 1 tablet by mouth daily ZYPREXA 15 MG TABS 780193 OLANZAPINE Inactive VERAPAMIL HCL CR 120 MG TAB CR 1 qPM VERAPAMIL HCL CR 120 MG TAB CR VERAPAMIL HCL Inactive ZYPREXA 10 MG TABS Take one by mouth daily ZYPREXA 10 MG TABS 745297 OLANZAPINE Inactive TOPROL XL 100 MG [id number] 1 @ HS TOPROL XL 100 MG [id number] METOPROLOL SUCCINATE Inactive LEVEMIR 100 UNIT/ML SOLN 90 units SQ qHS LEVEMIR 100 UNIT/ML SOLN INSULIN DETEMIR Inactive PROMETHAZINE-CODEINE 6.25-10 MG/5ML SYRP 1 tsp po q 6 hours prn cough PROMETHAZINE-CODEINE 6.25-10 MG/5ML SYRP 854562 PROMETHAZINE- CODEINE Inactive GUAIFENESIN 600 MG [id number]-DFJ 1 tablet by mouth twice daily if needed for cough GUAIFENESIN 600 MG [id number]-RQK GUAIFENESIN Inactive ALBUTEROL SULFATE 0.083 % NEBU SOLN one vial per nebulizer TID and PRN cough/ soa ALBUTEROL SULFATE 0.083 % NEBU SOLN 977955 ALBUTEROL SULFATE Inactive ZYPREXA 5 MG TABS take one tablet by mouth every evening ZYPREXA 5 MG TABS 358259 OLANZAPINE Inactive HYDROCODONE-ACETAMINOPHEN 5-325 MG TABS take one tablet by mouth every four hours as needed for pain HYDROCODONE-ACETAMINOPHEN 5-325 MG TABS 326165 HYDROCODONE-ACETAMINOPHEN Inactive BACTROBAN 2 % CREAM apply to ear and nose twice daily BACTROBAN 2 % CREAM 088361 MUPIROCIN CALCIUM Inactive CYCLOBENZAPRINE HCL 10 MG TABS 1/2 tablet by mouth every 8 hours as needed for muscle spasms CYCLOBENZAPRINE HCL 10 MG TABS 530245 CYCLOBENZAPRINE HCL Inactive NAVANE 10 MG CAPS 1/2 tablet twice a day NAVANE 10 MG CAPS THIOTHIXENE Inactive DOXEPIN HCL 10 MG CAPS Take 1 tablet by mouth daily DOXEPIN HCL 10 MG CAPS 0247065 DOXEPIN HCL Inactive HYDROCODONE-ACETAMINOPHEN 7.5-325 MG TABS 1 four times a day as needed for pain HYDROCODONE-ACETAMINOPHEN 7.5-325 MG TABS 373980 HYDROCODONE-ACETAMINOPHEN Inactive NIACIN CR 500 MG CR-TABS 2 qHS NIACIN CR 500 MG CR- TABS NIACIN Inactive ORPHENADRINE CITRATE ER 100 MG [id number] 1 every 12 hr. as needed ORPHENADRINE CITRATE ER 100 MG [id number] ORPHENADRINE CITRATE Inactive ACETAMINOPHEN 500 MG TABS 2 Q 6 hr. PRN ACETAMINOPHEN 500 MG TABS 554921 ACETAMINOPHEN Inactive SAPHRIS 5 MG SUBL by mouth twice a day SAPHRIS 5 MG SUBL ASENAPINE MALEATE Inactive NIACIN ER 500 MG CR-TABS 4 qHS (for triglycerides) NIACIN ER 500 MG CR-TABS NIACIN Inactive IBUPROFEN 200 MG TABS 1 Q 6 hr. PRN IBUPROFEN 200 MG TABS 462507 IBUPROFEN Inactive FLUTICASONE PROPIONATE 50 MCG/ACT SUSP 2 sprays each nostril qDay x 30 days FLUTICASONE PROPIONATE 50 MCG/ACT SUSP 8856940 FLUTICASONE PROPIONATE Inactive EQL TRUETEST TEST STRP Test blood sugar TID EQL TRUETEST TEST STRP GLUCOSE BLOOD Inactive TERESE CONTOUR TEST STRP monitor blood sugars 3x/day TERESE CONTOUR TEST STRP GLUCOSE BLOOD Inactive DETROL LA 4 MG [id number] Take 1 tablet by mouth daily DETROL LA 4 MG [id number]-SXI TOLTERODINE TARTRATE Inactive ZYPREXA 7.5 MG TABS 1 at HS ZYPREXA 7.5 MG TABS 399340 OLANZAPINE Inactive THIOTHIXENE 5 MG CAPS by mouth twice a day THIOTHIXENE 5 MG CAPS 784820 THIOTHIXENE Inactive UROXATRAL 10 MG [id number] Take 1 tablet by mouth daily UROXATRAL 10 MG SR84E-VHR ALFUZOSIN HCL Inactive ACYCLOVIR 400 MG ORAL TABS 1 pill three times daily x 5 days, for cold sore outbreak ACYCLOVIR 400 MG ORAL TABS 690506 ACYCLOVIR Inactive TRUETEST TEST STRP check sugars 4x/day TRUETEST TEST STRP GLUCOSE BLOOD Inactive HUMALOG 100 UNIT/ML SOLN Take 20 units with breakfast, 10u with lunch and suppetr. HUMALOG 100 UNIT/ML SOLN INSULIN LISPRO ( HUMAN) Inactive CYCLOBENZAPRINE HCL 10 MG TABS 1 tablet by mouth three times daily, scheduled CYCLOBENZAPRINE HCL 10 MG TABS 897305 CYCLOBENZAPRINE HCL Inactive ACCU-CHEK ROSA INVITR STRP use strips with device to check blood sugars 3 times daily ACCU-CHEK ROSA INVITR STRP GLUCOSE BLOOD Inactive ACCU-CHEK ROSA UZMA Use device to check blood sugars ACCU-CHEK ROSA UZMA BLOOD GLUCOSE MONITORING SUPPL Inactive FLUVOXAMINE MALEATE 100 MG ORAL TABS Take 1/2 tab at noon FLUVOXAMINE MALEATE 100 MG ORAL TABS 534458 FLUVOXAMINE MALEATE Inactive FLUVOXAMINE MALEATE 100 MG TABS Take one (1) tablet by mouth am, 1/2 at noon FLUVOXAMINE MALEATE 100 MG TABS 674190 FLUVOXAMINE MALEATE Inactive BACTROBAN 2 % CREAM Apply to affected area BID for up to 10 days BACTROBAN 2 % CREAM 539087 MUPIROCIN CALCIUM Inactive NOVOFINE 32G X 6 MM MISC use one four times per day NOVOFINE 32G X 6 MM MISC INSULIN PEN NEEDLE Inactive TRAZODONE HCL 100 MG ORAL TABS 1 tab by mouth for sleep TRAZODONE HCL 100 MG ORAL TABS 605549 TRAZODONE HCL Inactive LOVAZA 1 GM CAPS 4 daily (for triglycerides) LOVAZA 1 GM CAPS 474924 [id number]-[id number] ETHYL ESTERS Inactive METFORMIN HCL ER 500 MG [id number]-GRG Take three tablets by mouth everyday METFORMIN HCL ER 500 MG [id number]-PER METFORMIN HCL Inactive METOPROLOL SUCCINATE 100 MG CD80L-WNL 1 by mouth daily for blood pressure METOPROLOL SUCCINATE 100 MG [id number]-RBR METOPROLOL SUCCINATE Inactive AMITIZA 24 MCG ORAL CAPS Take one capsule BID for constipation. AMITIZA 24 MCG ORAL CAPS LUBIPROSTONE Inactive TOLTERODINE TARTRATE 2 MG TABS 1 pill twice daily, for bladder TOLTERODINE TARTRATE 2 MG TABS 596261 TOLTERODINE TARTRATE Inactive COLACE 100 MG CAPS 1 pill by mouth twice daily, for constipation COLACE 100 MG CAPS 7274444 DOCUSATE SODIUM Inactive LOMOTIL 2.5-0.025 MG ORAL TABS take 1-2 tabs PO after each stool, no more than 8 in 24 hours LOMOTIL 2.5-0.025 MG ORAL TABS 5643570 DIPHENOXYLATE-ATROPINE Inactive ZOFRAN 4 MG TABS 1 po q4hr PRN Nausea ZOFRAN 4 MG TABS 736813 ONDANSETRON HCL Inactive HYDROCODONE-ACETAMINOPHEN 5-325 MG TABS 2 tabs by mouth three times daily for pain HYDROCODONE-ACETAMINOPHEN 5-325 MG TABS 612531 HYDROCODONE-ACETAMINOPHEN Inactive ZOLPIDEM TARTRATE 10 MG TABS take at bedtime ZOLPIDEM TARTRATE 10 MG TABS 756783 ZOLPIDEM TARTRATE Inactive LISINOPRIL 20 MG TABS 1 BID LISINOPRIL 20 MG TABS 809662 LISINOPRIL Inactive TRAVATAN Z 0.004 % SOLN 1 gtt each eye daily TRAVATAN Z 0.004 % SOLN TRAVOPROST Inactive LATUDA 60 MG ORAL TABS Take one by mouth daily LATUDA 60 MG ORAL TABS LURASIDONE HCL Inactive CEFDINIR 300 MG CAPS by mouth twice a day CEFDINIR 300 MG CAPS 579636 CEFDINIR Inactive AZITHROMYCIN 500 MG SOLR 1 po q day AZITHROMYCIN 500 MG SOLR 23642987576 AZITHROMYCIN Inactive AMOXICILLIN 500 MG CAPS 2 po BID x 10 days AMOXICILLIN 500 MG CAPS 208038 AMOXICILLIN Inactive PENICILLIN V POTASSIUM 500 MG TABS 1 pill by mouth three times daily PENICILLIN V POTASSIUM 500 MG TABS 351387 PENICILLIN V POTASSIUM Inactive KEFLEX 500 MG CAP 1 po BID x 7 days KEFLEX 500 MG CAP 415956 CEPHALEXIN Inactive Immunizations Vaccine Administration Date Value [...] Fluvirin, Fluarix, Agriflu(>=18 yo)) Fluzone (>3 yrs.) [[id number]] Influenza, seasonal, injectable pneumococcal immunization administered Pneumovax [...] Panel - Chemistry sodium, serum 138 mmol/L 379-592 6404/11/11 potassium, serum 4.7 mmol/L 3.5-5.2 chloride, serum [...] Acid - Chemistry cholesterol, serum 187 mg/dL 337-237 2512/06/14 triglyceride, serum, fasting 246 mg/dL 30-200 HDL [...] negative Encounters Code Encounter Date Provider Facility CPT-46531 Level 3 Est. Patient 16:52:51 CDT Vanessa Hickey MD [facility]-37700 Level 3 Est. Patient 17:40:16 CDT Mima Erazo [facility] CPT-66291 Level 3 Est. Patient 14:34:52 CDT Vanessa Hickey MD [facility]-89200 Level 3 Est. Patient 16:27:51 CDT Mima Erazo [facility]-77375 Level 3 Est. Patient 14:39:00 PODIATRY DOCTOR Vanessa Hickey MD [facility] CPT-24411 Level 2 Est. Patient 18:43:34 CDT Mima Erazo [facility] CPT-01227 Level 3 Est. Patient 16:22:09 CDT Cherelle Avila [facility] CPT-99383 Level 4 Est. [facility] 17:55:[facility] Est. Patient 17:13:21 CDT Alina Castaneda MD [facility]-08836 Level 3 Est. Patient 14:46:15 CDT Vanessa Hickey MD [facility]-47339 Level 3 Est. Patient 09:34:56 CDT Alina Castaneda MD [facility]72919 Level 3 Est. Patient 21:40:19 CDT Mima Erazo [facility]-76521 Level 3 Est. Patient 09:26:40 CDT Marvel [facility]-07024 Level 3 Est. Patient 12:36:43 CDT Vanessa Hickey MD [facility]-01679 Level 3 Est. Patient 12:57:49 CDT Vanessa Hickey MD [facility]-44435 Level 3 Est. Patient 00:28:25 CDT Alina Castaneda MD [facility]-90981 Level 2 Est. Patient 12:52:14 CDT Alina Castaneda MD [facility]-75285 Level 3 Est. Patient 11:51:18 PODIATRY DOCTOR Alina Castaneda MD [facility]-64946 Level 3 Est. Patient 10:09:22 PODIATRY DOCTOR Alina Castaneda MD [facility]-98204 Level 3 Est. Patient 14:36:26 [facility]-04941 Level 3 Est. Patient 13:34:47 PODIATRY DOCTOR Alina Castaneda MD [facility]-65551 Level 3 Est. Patient 19:52:08 PODIATRY DOCTOR Alina Castaneda MD [facility]-07898 Level 3 Est. Patient 10:01:51 PODIATRY DOCTOR Marvel [facility]-45000 Level 3 Est. Patient 21:54:06 CDT Vanessa Hickey MD [facility]-66136 Level 3 Est. Patient 08:54:46 CDT Alina Castaneda MD [facility]-91298 Level 3 Est. Patient 09:32:11 CDT Marvel [facility]-66606 Level 3 Est. Patient 12:02:49 CDT Alina Castaneda MD [facility]34557 Level 3 Est. Patient 19:17:33 CDT Alina Castaneda MD [facility]-96244 Level 3 Est. Patient 13:19:10 CDT Marvel [facility]-71347 Level 3 Est. Patient 08:20:05 CDT Alina Castaneda MD [facility]35708 Level 3 Est. Patient 15:17:18 CDT Alina Castaneda MD [facility]20421 Level 3 Est. Patient 14:25:36 PODIATRY DOCTOR Marvel [facility]-25009 Level 3 Est. Patient 10:09:15 [facility]ATRY DOCTOR [facility]71949 Level 3 Est. Patient 21:28:43 CDT Alina Castaneda MD [facility]-69712 Level 3 Est. Patient 15:20:11 [facility]58239 Level 4 Est. Patient 19:08:12 CDT Alina Castaneda MD [facility]77371 Level 3 Est. Patient 15:06:[address] [facility]30564 Level 4 Est. Patient 17:48:15 CDT Alina Castaneda MD [facility]12003 Level 3 Est. Patient 14:53:49 CDT Alina Castan[facility] [facility]-48603 Level 3 Est. Patient 09:35:16 CDT Alina Castaneda MD [facility]42281 Level 3 Est. Patient 12:23:22 CDT Alina Castaneda MD [facility]31869 Level 3 Est. Patient 16:19:15 CDT Alina Castaneda MD [facility]-86874 Level 3 Est. Patient 21:39:56 PODIATRY DOCTOR Alina Castaneda MD [id number] Level 4 Est. Patient 14:12:56 PODIATRY DOCTOR Alina Castaneda MD [id number] Level 2 Est. Patient 15:34:57 PODIATRY DOCTOR Alina Castaneda MD [facility]48269 Level 3 Est. Patient 12:17:04 PODIATRY DOCTOR Alina Castaneda MD [facility]76925 Level 3 Est. Patient 09:18:18 PODIATRY DOCTOR [facility]-28534 Level 2 Est. Patient 21:50:24 CDT Alina Castaneda MD [id number] Level 3 Est. Patient 09:17:28 CDT [facility]-66764 Level 4 Est. Patient 18:54:02 CDT Alina Castaneda MD [facility]29932 Level 3 Est. Patient 10:47:10 CDT Alina Castaneda MD [facility]-24517 Level 3 Est. Patient 09:22:20 CDT [facility]-36350 Level 3 Est. Patient 16:39:43 CDT [facility]-43023 Level 3 Est. Patient 16:05:16 CDT Alina Castaneda MD [facility]43030 Level 3 Est. Patient 00:29:15 CDT Alina Castaneda MD [facility]41821 Level 3 Est. Patient 10:49:22 PODIATRY DOCTOR Marvel Thurstonestela [facility] [place][note 2] CPT-32238 Level 3 Est. Patient 21:30:19 PODIATRY DOCTOR Alina Castaneda MD [facility] CPT-15491 Level 4 Est. Patient 17:04:11 PODIATRY DOCTOR [facility] CPT-56896 Level 3 Est. Patient 15:34:11 PODIATRY DOCTOR [facility] CPT-04333 Level 2 Est. Patient 12:51:58 PODIATRY DOCTOR Alina Castaneda MD PhD [facility] CPT-87056 Level 3 Est. Patient 13:20:01 PODIATRY DOCTOR Alina Castaneda MD [facility] CPT-66804 Level 3 Est. Patient 09:23:35 CDT Alina Castaneda MD PhD [facility] Procedures Code Procedure Name Date Entry Date Standard Description [facility] Transitional Care Mgmt-Moderate 10:25:31 CDT CPT-92930 Bladder Scan 14:34:53 CDT CPT-66032 Bladder Scan 14:39:01 PODIATRY DOCTOR [facility] Transitional Care Mgmt-Moderate 10:30:19 PODIATRY DOCTOR CPT-91139 Bladder Scan 12:36:44 CDT CPT-31552 Bladder Scan 21:54:06 CDT CPT-G0008 Administration of Influenza Virus Vaccine 13:05:26 CDT CPT-05282 Fluzone Quadrivalent Intramuscular Suspension 0.5 ML 13: 05:26 CDT CPT-49616 Administration single or combination vaccine inc oral 11 :49:51 CDT CPT-98330 Pneumovax 11:49:51 CDT CPT-16718 Ribs unilateral 2V 12:37:22 PODIATRY DOCTOR CPT-20576 Chest 2V Frontal and Lat 17:15:26 CDT CPT-41278 Abx/Therapy Injection 18:54:02 CDT CPT-J0696 Rocephin 1000 mg (Ceftriaxone) 16:00:32 CDT CPT-26761 Chest 2V Frontal and Lat 15:26:45 CDT CPT-44431 Chest 2V Frontal and Lat 10:23:27 CDT CPT-92175 Venipuncture Draw Fee 10:11:00 CDT CPT-53406 Administration single or combination vaccine inc oral 11 :56:38 CDT CPT-45098 Influenza split virus > age 3 11:56:38 CDT CPT-76653 Venipuncture Draw Fee 08:49:54 PODIATRY DOCTOR CPT-37262 EKG Trac and Interp 17:54:19 PODIATRY DOCTOR
--- OUTSIDE RECORDS SUMMARY | 2018-07-02 18:52 | XMS REPORT | Clinical Summary ---
Author Author Admin, TERELL Organization [facility] Address Unknown Phone Unavailable Allergies, Adverse [...] MD PhD Palpitations UNSPECIFIED TACHYCARDIA 785.0 Resolved Ailna Castaneda MD PhD Tachycardia, unspecified ABNORMAL HEART 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 Erazo REHAB THERAPY MANAGER Benign paroxysmal positional vertigo Vertigo, benign paroxysmal position 386.11 Inactive Mima Erazo REHAB THERAPY MANAGER Benign paroxysmal positional vertigo High-risk sexual behavior V69.2 Active Alina Castaneda MD PhD High-risk sexual behavior Erectile dysfunction 302.72 Active Alina Castaneda MD PhD Psychosexual dysfunction with inhibited sexual excitement Constipation 564.00 Active Alina Castaneda MD PhD Constipation, unspecified Skin lesion 709.9 Active Alina Castaneda MD PhD Unspecified disorder of skin and subcutaneous tissue Malaise and fatigue 780.79 Active Cherelle Speaks REHAB THERAPY MANAGER Other malaise and fatigue Diarrhea 787.91 Active Cherelle Speaks REHAB THERAPY MANAGER Diarrhea PHARYNGITIS 462 Active Cherelle Speaks REHAB THERAPY MANAGER Acute pharyngitis Colitis 558.9 Active Mima Erazo REHAB THERAPY MANAGER Other and unspecified noninfectious gastroenteritis and colitis DIABETES, TYPE 2 ICD-250.00 Inactive Alina Castaneda MD PhD URI ICD-465.9 Inactive Alina Castaneda MD PhD HYPERTENSION ICD-401.9 Inactive Alian Castaneda MD PhD WOUND, OPEN, NOSE ICD-873.20 [...] SKIN LESION ICD-709.9 Roro Castaneda MD PhD FH STROKE ICD-V17.1 Inactive Marvel MARROQUIN DIABETIC HYPOGLYCEMIA, TYPE II ICD-250.80 Roro 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 Inactive Alina Castaneda MD PhD ABNORMAL HEART [...] x 1 week then daily FLUTICASONE PROPIONATE 58917168722 Active Mima Erazo REHAB THERAPY MANAGER Active BD PEN NEEDLE MINI U/F 31G X 5 MM MISC 4 a day INSULIN PEN NEEDLE 35702756340 Active Marvel Mackenzieglestela PREDATORY ANIMAL EXTERMINATOR Active AMITIZA 24 MCG ORAL CAPS Take one capsule BID for constipation LUBIPROSTONE 60593568317 Active Mima Erazo REHAB THERAPY MANAGER Active LEVEMIR FLEXTOUCH 100 UNIT/ML SC SOPN 75 units SQ each evening, for diabetes INSULIN DETEMIR 97097555997 Active CRYSTAL Rodrigues Active TRUEPLUS LANCETS 30G MISC 3 a day LANCETS 64629001919 Active Marvel MARROQUIN Active TOLTERODINE TARTRATE 2 MG TABS 1 pill twice daily, for bladder TOLTERODINE TARTRATE 96213502370 No Longer Active Vanessa Hickey MD Active AMITIZA 24 MCG ORAL CAPS Take one capsule BID for constipation. LUBIPROSTONE 99438649496 No Longer Active Vanessa Hickey MD Active LOMOTIL 2.5-0.025 MG ORAL TABS take 1-2 tabs PO after each stool, no more than 8 in 24 hours DIPHENOXYLATE-ATROPINE 83506267739 Active Grace Zaam RMA Active FLUVOXAMINE MALEATE 100 MG ORAL TABS take one tab every AM et HS, and take 1/ 2 tab at noon FLUVOXAMINE MALEATE 36324033074 Active Grace Azam RMA Active METOPROLOL SUCCINATE 100 MG [id number]-OOC 1 by mouth daily for blood pressure METOPROLOL SUCCINATE 18801235296 No Longer Active Grace Azam RMA Active METFORMIN HCL ER 500 MG [id number]-SSK Take three tablets by mouth everyday METFORMIN HCL 75694600733 No Longer Active Grace Azam RMA Active LOVAZA 1 GM CAPS 4 daily (for triglycerides) OMEGA-3- ACID ETHYL ESTERS 21411335746 No Longer Active Grace Azam RMA Active TRAZODONE HCL 100 MG ORAL TABS 1 tab by mouth for sleep TRAZODONE HCL 51784415604 No Longer Active Grace Azam RMA Active NOVOFINE 32G X 6 MM MISC use one four times per day INSULIN PEN NEEDLE 19170163019 No Longer Active Grace Azam RMA Active BACTROBAN 2 % CREAM Apply to affected area BID for up to 10 days MUPIROCIN CALCIUM 51495791688 No Longer Active Grace Azam RMA Active ZOFRAN 4 MG TABS 1 po q4hr PRN Nausea ONDANSETRON HCL 35299330181 Active Salina Ervinford RMA Active KEFLEX 500 MG CAP 1 po BID x 7 days CEPHALEXIN 55772115244 No Longer Active Cherelle Avila REHAB THERAPY MANAGER Active FLUVOXAMINE MALEATE 100 MG TABS Take one (1) tablet by mouth am, 1/2 at noon FLUVOXAMINE MALEATE 08756179536 No Longer Active Mima Erazo REHAB THERAPY MANAGER Active CORICIDIN HBP CONGESTION/COUGH 10-200 MG ORAL CAPS Take as directed on box as needed for cold/flu symptoms DEXTROMETHORPHAN-GUAIFENESIN 18419107037 Active Cherelle Avila REHAB THERAPY MANAGER Active OMEGA-3 300 MG ORAL CAPS 4 caps by mouth daily OMEGA-3 FATTY ACIDS 65290821702 Active Mima Erazo REHAB THERAPY MANAGER Active FLUVOXAMINE MALEATE 100 MG ORAL TABS Take 1/2 tab at noon FLUVOXAMINE MALEATE 14956132869 No Longer Active Cherelle Avila REHAB THERAPY MANAGER Active [facility] LUBRICANT EYE DROPS 0.4-0.3 % OPHTH SOLN POLYETHYL GLYCOL-PROPYL GLYCOL 71944178316 Active Mima Erazo REHAB THERAPY MANAGER Active CLONAZEPAM 1 MG TABS 1/2 pill by mouth three times daily CLONAZEPAM 87452268893 Active Alina Castaneda MD PhD Active MIRALAX POWD 17g by mouth daily, for constipation POLYETHYLENE GLYCOL 3350 55577545903 Active Alina Castaneda MD PhD Active HYDROCODONE-ACETAMINOPHEN 5-325 MG TABS 2 tabs by mouth three times daily for pain HYDROCODONE-ACETAMINOPHEN 16226065728 Active Mima Erazo REHAB THERAPY MANAGER Active HUMALOG KWIKPEN 100 UNIT/ML SC SOPN 20 units with breakfast, 10 units with lunch, 10 units with dinner, for diabetes INSULIN LISPRO (HUMAN ) 06278265997 Active Alina Castaneda MD PhD Active LATUDA 120 MG ORAL TABS 1 pill by mouth nightly LURASIDONE HCL 68374381349 Active Alina Castaneda MD PhD Active COLACE 100 MG CAPS 1 pill by mouth twice daily, for constipation DOCUSATE SODIUM 54456206371 Active Alina Castaneda MD PhD Active TRUETEST TEST STRP check blood sugars 3x/day GLUCOSE BLOOD 68528374503 Active Marvel MARROQUIN Active ACCU-CHEK ROSA UZMA Use device to check blood sugars BLOOD GLUCOSE MONITORING SUPPL 10574370007 No Longer Active Marvel MARROQUIN Active ACCU-CHEK ROSA INVITR STRP use strips with device to check blood sugars 3 times daily GLUCOSE BLOOD 76392730110 No Longer Active Marvel MARROQUIN Active VERAPAMIL HCL ER 180 MG ORAL CR-TABS 1 pill by mouth twice daily, for migraine prevention VERAPAMIL HCL 65252273124 Active Alina Castaneda MD PhD Active CYCLOBENZAPRINE HCL 10 MG TABS 1 tablet by mouth three times daily, scheduled CYCLOBENZAPRINE HCL 14014593293 No Longer Active Alina Castaneda MD PhD Active HUMALOG 100 UNIT/ML SOLN Take 20 units with breakfast, 10u with lunch and suppetr. INSULIN LISPRO (HUMAN) 95522653314 No Longer Active Alina Castaneda MD PhD Active TRUETEST TEST STRP check sugars 4x/day GLUCOSE BLOOD 13209362317 No Longer Active Alina Castaneda MD PhD Active MORPHINE SULFATE 30 MG TABS 1 pill by mouth twice daily, for pain MORPHINE SULFATE 71325659199 Active Mima Erazo REHAB THERAPY MANAGER Active ACYCLOVIR 400 MG ORAL TABS 1 pill three times daily x 5 days, for cold sore outbreak ACYCLOVIR 38916302374 No Longer Active Alina Castaneda MD PhD Active PENICILLIN V POTASSIUM 500 MG TABS 1 pill by mouth three times daily PENICILLIN V POTASSIUM 61458047711 No Longer Active Alina Castaneda MD PhD Active UROXATRAL 10 MG [id number]-ZFZ Take 1 tablet by mouth daily ALFUZOSIN HCL 84464875344 No Longer Active Alina Castaneda MD PhD Active THIOTHIXENE 5 MG CAPS by mouth twice a day THIOTHIXENE 31312143190 No Longer Active Alina Castaneda MD PhD Active ZYPREXA 7.5 MG TABS 1 at HS OLANZAPINE 66593559703 No Longer Active Alina Castaneda MD PhD Active BD INSULIN SYRINGE 28G X 1/2" 1 ML MISC 1 four times per day INSULIN SYRINGE-NEEDLE U-100 41523321990 Active Marvel MARROQUIN Active DETROL LA 4 MG NH05M-TUL Take 1 tablet by mouth daily TOLTERODINE TARTRATE 45749623046 No Longer Active Alina Castaneda MD PhD Active TERESE CONTOUR TEST STRP monitor blood sugars 3x/day GLUCOSE BLOOD 13198269467 No Longer Active Alina Castaneda MD PhD Active EQL TRUETEST TEST STRP Test blood sugar TID GLUCOSE BLOOD 96928439068 No Longer Active Alina Castaneda MD PhD Active FLUTICASONE PROPIONATE 50 MCG/ACT SUSP 2 sprays each nostril qDay x 30 days FLUTICASONE PROPIONATE 44072254212 No Longer Active Alina Castaneda MD PhD Active IBUPROFEN 200 MG TABS 1 Q 6 hr. PRN IBUPROFEN 60535815065 No Longer Active Alina Castaneda MD PhD Active NIACIN ER 500 MG CR-TABS 4 qHS (for triglycerides) NIACIN 74492489025 No Longer Active Alina Castaneda MD PhD Active ALFUZOSIN HCL ER 10 MG LT42O-PFC 1 tablet daily ALFUZOSIN HCL 25515798883 Active Vanessa Hickey MD Active SAPHRIS 5 MG SUBL by mouth twice a day ASENAPINE MALEATE 09949417248 No Longer Active Marvel MARROQUIN Active ACETAMINOPHEN 500 MG TABS 2 Q 6 hr. PRN ACETAMINOPHEN 64568860196 No Longer Active Marvel MARROQUIN Active ORPHENADRINE CITRATE ER 100 MG [id number] 1 every 12 hr. as needed ORPHENADRINE CITRATE 24863497987 No Longer Active Alina Castaneda MD PhD Active NIACIN CR 500 MG CR-TABS 2 qHS NIACIN 42000678382 No Longer Active Alina Castaneda MD PhD Active AMOXICILLIN 500 MG CAPS 2 po BID x 10 days AMOXICILLIN 74286546592 No Longer Active Alina Castaneda MD PhD Active HYDROCODONE-ACETAMINOPHEN 7.5-325 MG TABS 1 four times a day as needed for pain HYDROCODONE-ACETAMINOPHEN 77724035472 No Longer Active Alina Castaneda MD PhD Active DOXEPIN HCL 10 MG CAPS Take 1 tablet by mouth daily DOXEPIN HCL 27810500005 No Longer Active Salina Han A Active NAVANE 10 MG CAPS 1/2 tablet twice a day THIOTHIXENE No Longer Active Salina Han A Active CYCLOBENZAPRINE HCL 10 MG TABS 1/2 tablet by mouth every 8 hours as needed for muscle spasms CYCLOBENZAPRINE HCL 29384456665 No Longer Active Alina Castaneda MD PhD Active BACTROBAN 2 % CREAM apply to ear and nose twice daily MUPIROCIN CALCIUM 55491697346 No Longer Active Alina Castaneda MD PhD Active HYDROCODONE-ACETAMINOPHEN 5-325 MG TABS take one tablet by mouth every four hours as needed for pain HYDROCODONE-ACETAMINOPHEN 90516991153 No Longer Active Alina Castaneda MD PhD Active ZOLPIDEM TARTRATE 10 MG TABS take at bedtime ZOLPIDEM TARTRATE 99796715536 Active Alina Castaneda MD PhD Active ZYPREXA 5 MG TABS take one tablet by mouth every evening OLANZAPINE 69584854074 No Longer Active Alina Castaneda MD PhD Active ALBUTEROL SULFATE 0.083 % NEBU SOLN one vial per nebulizer TID and PRN cough/ soa ALBUTEROL SULFATE 30023258918 No Longer Active Alina Castaneda MD PhD Active GUAIFENESIN 600 MG SW76G-JEH 1 tablet by mouth twice daily if needed for cough GUAIFENESIN 73487609245 No Longer Active Marvel MARROQUIN Active AZITHROMYCIN 500 MG SOLR 1 po q day AZITHROMYCIN 32258188938 No Longer Active Alina Castaneda MD PhD Active PROMETHAZINE-CODEINE 6.25-10 MG/5ML SYRP 1 tsp po q 6 hours prn cough PROMETHAZINE-CODEINE 75723126826 No Longer Active Alina Castaneda MD PhD Active CEFDINIR 300 MG CAPS by mouth twice a day CEFDINIR 85538672891 No Longer Active Alina Castaneda MD PhD Active METFORMIN HCL 500 MG CV12T-DCX Take 3 tablets by mouth everyday METFORMIN HCL 44814104232 No Longer Active Alina Castaneda MD PhD Active LEVEMIR 100 UNIT/ML SOLN 90 units SQ qHS INSULIN DETEMIR 64712165773 No Longer Active Marvel MARROQUIN Active TOPROL XL 100 MG [id number]-JPQ 1 @ HS METOPROLOL SUCCINATE 39265447138 No Longer Active Marvel MARROQUIN Active ALLOPURINOL 300 MG TABS Take one by mouth daily ALLOPURINOL 33678600614 Active Alina Castaneda MD PhD Active ZYPREXA 10 MG TABS Take one by mouth daily OLANZAPINE 88964574073 No Longer Active Alina Castaneda MD PhD Active NOVOLOG 100 UNIT/ML SOLN 40 units with every meal INSULIN ASPART 38699118673 No Longer Active Alina Castaneda MD PhD Active VERAPAMIL HCL CR 120 MG TAB CR 1 qPM VERAPAMIL HCL 43556956290 No Longer Active Salina Emely ROJAS Active ZYPREXA 15 MG TABS Take 1 tablet by mouth daily OLANZAPINE 84671395220 No Longer Active Marvel MARROQUIN Active LISINOPRIL 20 MG TABS 1 BID LISINOPRIL 12616822175 Active Alina Castaneda MD PhD Active ALBUTEROL SULFATE (2.5 MG/3ML) 0.083% NEBU 1 neb tid and prn cough ALBUTEROL SULFATE 13404418432 No Longer Active Alina Castaneda MD PhD Active TRAVATAN Z 0.004 % SOLN 1 gtt each eye daily TRAVOPROST 71332461743 Active CRYSTAL Suarez Active LANTUS 100 UNIT/ML SOLN 60 units sq q hs INSULIN GLARGINE 59812834402 No Longer Active CRYSTAL Suarez Active ALBUTEROL SULFATE (2.5 MG/3ML) 0.083% NEBU 1 neb tid and prn cough ALBUTEROL SULFATE (2.5 MG/3ML) 0.083% NEBU 116073 ALBUTEROL SULFATE Inactive ZYPREXA 15 MG TABS Take 1 tablet by mouth daily ZYPREXA 15 MG TABS 759221 OLANZAPINE Inactive VERAPAMIL HCL CR 120 MG TAB CR 1 qPM VERAPAMIL HCL CR 120 MG TAB CR VERAPAMIL HCL Inactive ZYPREXA 10 MG TABS Take one by mouth daily ZYPREXA 10 MG TABS 299083 OLANZAPINE Inactive TOPROL XL 100 MG [id number]-DOE 1 @ HS TOPROL XL 100 MG SH70F-BGW METOPROLOL SUCCINATE Inactive LEVEMIR 100 UNIT/ML SOLN 90 units SQ qHS LEVEMIR 100 UNIT/ML SOLN INSULIN DETEMIR Inactive PROMETHAZINE-CODEINE 6.25-10 MG/5ML SYRP 1 tsp po q 6 hours prn cough PROMETHAZINE-CODEINE 6.25-10 MG/5ML SYRP 107682 PROMETHAZINE- CODEINE Inactive GUAIFENESIN 600 MG SZ86D-WJR 1 tablet by mouth twice daily if needed for cough GUAIFENESIN 600 MG UQ52L-DBM GUAIFENESIN Inactive ALBUTEROL SULFATE 0.083 % NEBU SOLN one vial per nebulizer TID and PRN cough/ soa ALBUTEROL SULFATE 0.083 % NEBU SOLN 216488 ALBUTEROL SULFATE Inactive ZYPREXA 5 MG TABS take one tablet by mouth every evening ZYPREXA 5 MG TABS 324024 OLANZAPINE Inactive HYDROCODONE-ACETAMINOPHEN 5-325 MG TABS take one tablet by mouth every four hours as needed for pain HYDROCODONE-ACETAMINOPHEN 5-325 MG TABS 312551 HYDROCODONE-ACETAMINOPHEN Inactive BACTROBAN 2 % CREAM apply to ear and nose twice daily BACTROBAN 2 % CREAM 258900 MUPIROCIN CALCIUM Inactive CYCLOBENZAPRINE HCL 10 MG TABS 1/2 tablet by mouth every 8 hours as needed for muscle spasms CYCLOBENZAPRINE HCL 10 MG TABS 377223 CYCLOBENZAPRINE HCL Inactive NAVANE 10 MG CAPS 1/2 tablet twice a day NAVANE 10 MG CAPS THIOTHIXENE Inactive DOXEPIN HCL 10 MG CAPS Take 1 tablet by mouth daily DOXEPIN HCL 10 MG CAPS 0938323 DOXEPIN HCL Inactive HYDROCODONE-ACETAMINOPHEN 7.5-325 MG TABS 1 four times a day as needed for pain HYDROCODONE-ACETAMINOPHEN 7.5-325 MG TABS 008264 HYDROCODONE-ACETAMINOPHEN Inactive NIACIN CR 500 MG CR-TABS 2 qHS NIACIN CR 500 MG CR- TABS NIACIN Inactive ORPHENADRINE CITRATE ER 100 MG [id number]-CYA 1 every 12 hr. as needed ORPHENADRINE CITRATE ER 100 MG TZ25Z-TDA ORPHENADRINE CITRATE Inactive ACETAMINOPHEN 500 MG TABS 2 Q 6 hr. PRN ACETAMINOPHEN 500 MG TABS 937314 ACETAMINOPHEN Inactive SAPHRIS 5 MG SUBL by mouth twice a day SAPHRIS 5 MG SUBL ASENAPINE MALEATE Inactive NIACIN ER 500 MG CR-TABS 4 qHS (for triglycerides) NIACIN ER 500 MG CR-TABS NIACIN Inactive IBUPROFEN 200 MG TABS 1 Q 6 hr. PRN IBUPROFEN 200 MG TABS 713858 IBUPROFEN Inactive FLUTICASONE PROPIONATE 50 MCG/ACT SUSP 2 sprays each nostril qDay x 30 days FLUTICASONE PROPIONATE 50 MCG/ACT SUSP 703973 FLUTICASONE PROPIONATE Inactive EQL TRUETEST TEST STRP Test blood sugar TID EQL TRUETEST TEST STRP GLUCOSE BLOOD Inactive TERESE CONTOUR TEST STRP monitor blood sugars 3x/day TERESE CONTOUR TEST STRP GLUCOSE BLOOD Inactive DETROL LA 4 MG SX83I-JNQ Take 1 tablet by mouth daily DETROL LA 4 MG ZS31O-VZZ TOLTERODINE TARTRATE Inactive ZYPREXA 7.5 MG TABS 1 at HS ZYPREXA 7.5 MG TABS 874984 OLANZAPINE Inactive THIOTHIXENE 5 MG CAPS by mouth twice a day THIOTHIXENE 5 MG CAPS 230858 THIOTHIXENE Inactive UROXATRAL 10 MG CW02O-YGY Take 1 tablet by mouth daily UROXATRAL 10 MG OJ73P-VRD ALFUZOSIN HCL Inactive ACYCLOVIR 400 MG ORAL TABS 1 pill three times daily x 5 days, for cold sore outbreak ACYCLOVIR 400 MG ORAL TABS 038910 ACYCLOVIR Inactive TRUETEST TEST STRP check sugars 4x/day TRUETEST TEST STRP GLUCOSE BLOOD Inactive HUMALOG 100 UNIT/ML SOLN Take 20 units with breakfast, 10u with lunch and suppetr. HUMALOG 100 UNIT/ML SOLN INSULIN LISPRO ( HUMAN) Inactive CYCLOBENZAPRINE HCL 10 MG TABS 1 tablet by mouth three times daily, scheduled CYCLOBENZAPRINE HCL 10 MG TABS 341773 CYCLOBENZAPRINE HCL Inactive ACCU-CHEK ORSA INVITR STRP use strips with device to check blood sugars 3 times daily ACCU-CHEK ROSA INVITR STRP GLUCOSE BLOOD Inactive ACCU-CHEK ROSA UZMA Use device to check blood sugars ACCU-CHEK ROSA UZMA BLOOD GLUCOSE MONITORING SUPPL Inactive FLUVOXAMINE MALEATE 100 MG ORAL TABS Take 1/2 tab at noon FLUVOXAMINE MALEATE 100 MG ORAL TABS 961255 FLUVOXAMINE MALEATE Inactive FLUVOXAMINE MALEATE 100 MG TABS Take one (1) tablet by mouth am, 1/2 at noon FLUVOXAMINE MALEATE 100 MG TABS 427014 FLUVOXAMINE MALEATE Inactive BACTROBAN 2 % CREAM Apply to affected area BID for up to 10 days BACTROBAN 2 % CREAM 815458 MUPIROCIN CALCIUM Inactive NOVOFINE 32G X 6 MM MISC use one four times per day NOVOFINE 32G X 6 MM MISC INSULIN PEN NEEDLE Inactive TRAZODONE HCL 100 MG ORAL TABS 1 tab by mouth for sleep TRAZODONE HCL 100 MG ORAL TABS 944868 TRAZODONE HCL Inactive LOVAZA 1 GM CAPS 4 daily (for triglycerides) LOVAZA 1 GM CAPS 519548 HRGXN-8-PJZY ETHYL ESTERS Inactive METFORMIN HCL ER 500 MG ON05J-GMX Take three tablets by mouth everyday METFORMIN HCL ER 500 MG VB80D-ZCE METFORMIN HCL Inactive METOPROLOL SUCCINATE 100 MG BH10S-QVB 1 by mouth daily for blood pressure METOPROLOL SUCCINATE 100 MG CN58R-PAM METOPROLOL SUCCINATE Inactive AMITIZA 24 MCG ORAL CAPS Take one capsule BID for constipation. AMITIZA 24 MCG ORAL CAPS LUBIPROSTONE Inactive TOLTERODINE TARTRATE 2 MG TABS 1 pill twice daily, for bladder TOLTERODINE TARTRATE 2 MG TABS 731572 TOLTERODINE TARTRATE Inactive CEFDINIR 300 MG CAPS by mouth twice a day CEFDINIR 300 MG CAPS 459497 CEFDINIR Inactive AZITHROMYCIN 500 MG SOLR 1 po q day AZITHROMYCIN 500 MG SOLR 50371991482 AZITHROMYCIN Inactive AMOXICILLIN 500 MG CAPS 2 po BID x 10 days AMOXICILLIN 500 MG CAPS 734144 AMOXICILLIN Inactive PENICILLIN V POTASSIUM 500 MG TABS 1 pill by mouth three times daily PENICILLIN V POTASSIUM 500 MG TABS 829723 PENICILLIN V POTASSIUM Inactive KEFLEX 500 MG CAP 1 po BID x 7 days KEFLEX 500 MG CAP 136354 CEPHALEXIN Inactive Immunizations Vaccine Administration Date Value [...] Fluvirin, Fluarix, Agriflu(>=18 yo)) Fluzone (>3 yrs.) [[id number]] Influenza, seasonal, injectable pneumococcal immunization administered Pneumovax [...] MICROALBUMIN - Chemistry sodium, serum 137 mmol/L 015-919 0191/05/19 potassium, serum 5.2 mmol/L 3.5-5.2 chloride, serum [...] Panel - Chemistry sodium, serum 137 mmol/L 269-676 0014/10/12 potassium, serum 4.8 mmol/L 3.5-5.2 chloride, serum 102 mmol/L 98-107 carbon dioxide, venous blood 27.6 mmol/L 21.0-32.0 blood glucose 168 mg/dL 65-110 calcium, serum 9.0 mg/dL 8.5-10.1 urea nitrogen, blood 15 mg/dL 7-18 creatinine, serum 1.04 mg/dL 0.55-1.30 sodium, serum 138 mmol/L 516-369 9833/11/11 potassium, serum 4.7 mmol/L 3.5-5.2 chloride, serum 103 mmol/L 98-107 carbon dioxide, venous blood 23.3 mmol/L 21.0-32.0 blood glucose 170 mg/dL 65-110 calcium, serum 8.6 mg/dL 8.5-10.1 urea nitrogen, blood 17 mg/dL 7-18 creatinine, serum 1.51 mg/dL 0.55-1.30 Lab Report: CBC W/DIFF, Basic Metabolic Panel - Hematology neutrophils as percent of blood leukocytes 75.0 [...] % 11.6-14.8 platelet count 240 10^3/MM^3 10*3/mm3 694-588 7990/11/11 leukocyte count, blood 9.6 10^3/MM^3 10*3/mm3 4.6-10.2 hematocrit, blood 39.5 % 41.0-53.0 mean corpuscular volume, RBC 91 fL 80-97 mean corpuscular hemoglobin, RBC 31.2 pg 27.0-31.2 mean corpuscular hemoglobin concentration, RBC 34.1 G/DL % 31.8- 35.4 red blood cell distribution width 15.3 % 11.6-14.8 platelet count 252 10^3/MM^3 10*3/mm3 142-424 Lab Report: Chlamydia/GC APTIMA/42764, HIV-1/2 Agn/Dominga/81934, RPR (DX) W ... - Chemistry hepatitis B surface antigen NON-REACTIVE NON-REACTIVE Lab Report: Chlamydia/GC APTIMA/62461, HIV-1/2 Agn/Dominga/28594, RPR (DX) W ... - Lab chlamydia DNA probe NOT DETECTED NOT DETECTED Lab Report: Chlamydia/GC APTIMA/58894, HIV-1/2 Agn/Dominga/95175, RPR (DX) W ... - Microbiology Neisseria gonorrhoeae DNA probe NOT DETECTED NOT DETECTED Lab Report: Chlamydia/GC APTIMA/90029, HIV-1/2 Agn/Dominga/04662, RPR (DX) W ... - Serology rapid [...] 383 mg/dL 30-200 cholesterol, serum 131 mg/dL 156-134 2609/06/03 albumin/creatinine ratio, urine < 30 mg/g mg/g{creat} [...] 4.7 mg/dL 2.6-7.2 cholesterol, serum 142 mg/dL 043-937 7045/06/26 triglyceride, serum, fasting 272 mg/dL 30-200 LDL cholesterol, serum 66 mg/dL 0-130 prostate specific antigen 0.37 ng/mL 0.00-4.00 Lab Report: Lipid Panel, Prostatic Specific Ag, MICROALBUMIN, Uric Acid - Lab microalbumin, urine 80 0-19 Lab Report: UADIP W/MICRO, AUTO - Chemistry RBC, urine, dipstick Negative Negative protein, total urine random Negative mg/dL Negative Lab Report: UADIP W/MICRO, AUTO - Urinalysis glucose, urine, semiquantitative Negative Negative urobilinogen, urine, semiquantitative (dipstick) 1.0 Normal leukocyte esterase, urine, by dipstick Negative Negative nitrite, urine, semiquantitative Negative Negative appearance, urine Clear Clear specific gravity, urine 1.020 1.000-1.030 pH, urine, semiquantitative 5.5 5.0-8.5 urine color Yellow Colorless;Lightyellow;Straw;Yellow ketones, urine, by test strip Trace Negative [...] negative Encounters Code Encounter Date Provider Facility [facility]-[id number] Level 3 Est. Patient 14:39:00 PLASTERING SUPERVISOR Vanessa Hickey MD [facility]-87647 Level 2 Est. Patient 18:43:34 CDT Mima Erazo [facility]-23613 Level 3 Est. Patient 16:22:09 CDT Cherelle Avila [facility]-14982 Level 4 Est. Patient 17:55:14 CDT Mima Erazo [facility] CPT-21506 Level 2 Est. Patient 17:13:21 CDT Alina Castaneda MD PhD [facility]-38302 Level 3 Est. Patient 14:46:15 CDT Vanessa Hickey MD [facility]13020 Level 3 Est. Patient 09:34:56 CDT Alina Castaneda MD PhD [facility]68152 Level 3 Est. Patient 21:40:19 CDT Mima Erazo [facility]-68594 Level 3 Est. Patient 09:26:40 CDT Marvel Charles [facility]-41073 Level 3 Est. Patient 12:36:43 CDT Vanessa Hickey MD [facility]14121 Level 3 Est. Patient 12:57:49 CDT Vanessa Hickey MD [facility]53883 Level 3 Est. Patient 00:28:25 CDT Alina Castaneda MD [facility]-29417 Level 2 Est. Patient 12:52:14 CDT Alina Castaneda MD [facility]-77136 Level 3 Est. Patient 11:51:18 PLASTERING SUPERVISOR Alina Castaneda MD [facility]-04258 Level 3 Est. Patient 10:09:22 PLASTERING SUPERVISOR Alina Castaneda MD [facility]-54479 Level 3 Est. Patient 14:36:26 PLASTERING SUPERVISOR Marvel Charles [facility]-39530 Level 3 Est. Patient 13:34:47 PLASTERING SUPERVISOR Alina Castaneda MD [facility]17938 Level 3 Est. Patient 19:52:08 PLASTERING SUPERVISOR Alina Castaneda MD [facility]-01688 Level 3 Est. Patient 10:01:51 PLASTERING SUPERVISOR [facility]-54834 Level 3 Est. Patient 21:54:06 CDT Vanessa Hickey MD [facility]-02652 Level 3 Est. Patient 08:54:46 CDT Alina Castaneda MD [facility]-15032 Level 3 Est. Patient 09:32:11 CDT Marvel Charles [facility]-08583 Level 3 Est. Patient 12:02:49 CDT Alina Castaneda MD [facility]-34704 Level 3 Est. Patient 19:17:33 CDT Alina Castaneda MD [facility]-20549 Level 3 Est. Patient 13:19:10 CDT Marvel Charles [facility]-91987 Level 3 Est. Patient 08:20:05 CDT Alina Castaneda MD [facility]29981 Level 3 Est. Patient 15:17:18 CDT Alina Castaneda MD [facility]-04537 Level 3 Est. Patient 14:25:36 PLASTERING SUPERVISOR Marvel Charles [facility] CPT-51274 Level 3 Est. Patient 10:09:15 PLASTERING SUPERVISOR Marvel Charles [facility] CPT-72474 Level 3 Est. Patient 21:28:43 CDT Alina Castaneda MD [facility]-84510 Level 3 Est. Patient 15:20:11 CDT Marvel Thurstonestela [facility]-47560 Level 4 Est. Patient 19:08:12 CDT Alina Castaneda MD [facility]-76009 Level 3 Est. Patient 15:06:39 [facility]78409 Level 4 Est. Patient 17:48:15 CDT Alina Castaneda MD [facility]-89353 Level 3 Est. Patient 14:53:49 CDT Alina Castaneda MD [facility]-81285 Level 3 Est. Patient 09:35:16 CDT Alina Castaneda MD [facility]-85120 Level 3 Est. Patient 12:23:22 CDT Alina Castaneda MD [facility] CPT-30870 Level 3 Est. Patient 16:19:15 CDT Alina Castaneda MD [facility]-16358 Level 3 Est. Patient 21:39:56 PLASTERING SUPERVISOR Alina Castaneda MD [facility]-10457 Level 4 Est. Patient 14:12:56 PLASTERING SUPERVISOR Alina Castaneda MD [facility]-09390 Level 2 Est. Patient 15:34:57 PLASTERING SUPERVISOR Alina Castaneda MD [facility]-59814 Level 3 Est. Patient 12:17:04 PLASTERING SUPERVISOR Alina Castaneda MD [facility]-09833 Level 3 Est. Patient 09:18:18 PLASTERING SUPERVISOR Marvel Charles [facility]-49806 Level 2 Est. Patient 21:50:24 CDT Alina Castaneda MD [facility]-30387 Level 3 Est. Patient 09:17:28 CDT Marvel Charles [facility]-64703 Level 4 Est. Patient 18:54:02 CDT Alina Castaneda MD [facility]-20047 Level 3 Est. Patient 10:47:10 CDT Alina Castaneda MD [facility]-89338 Level 3 Est. Patient 09:22:20 CDT Marvel Charles [facility]-53189 Level 3 Est. Patient 16:39:43 CDT Marvel Charles [facility]-91650 Level 3 Est. Patient 16:05:16 CDT Alina Castaneda MD [facility]-20295 Level 3 Est. Patient 00:29:15 CDT Alina Castaneda MD [facility]-12445 Level 3 Est. Patient 10:49:22 PLASTERING SUPERVISOR Marvel Charles [facility]71799 Level 3 Est. Patient 21:30:19 PLASTERING SUPERVISOR Alina Castaneda MD [facility]-63706 Level 4 Est. Patient 17:04:11 PLASTERING SUPERVISOR Marvel Charles [facility]-83290 Level 3 Est. Patient 15:34:11 PLASTERING SUPERVISOR Marvel Charles [facility] CPT-78597 Level 2 Est. Patient 12:51:58 PLASTERING SUPERVISOR Alina Castaneda MD PhD [facility] CPT-65379 Level 3 Est. Patient 13:20:01 PLASTERING SUPERVISOR Alina Castaneda MD PhD [facility] CPT-89265 Level 3 Est. Patient 09:23:35 CDT Alina Castaneda MD PhD [facility] Procedures Code Procedure Name Date Entry Date Standard Description CPT-45464 Bladder Scan 14:39:01 PLASTERING SUPERVISOR CPT-TCMM Transitional Care Mgmt-Moderate 10:30:19 PLASTERING SUPERVISOR CPT-69751 Bladder Scan 12:36:44 CDT CPT-01928 Bladder Scan 21:54:06 CDT CPT-G0008 Administration of Influenza Virus Vaccine 13:05:26 CDT CPT-59537 Fluzone Quadrivalent Intramuscular Suspension 0.5 ML 13: 05:26 CDT CPT-67225 Administration single or combination vaccine inc oral 11 :49:51 CDT CPT-76812 Pneumovax 11:49:51 CDT CPT-44782 Ribs unilateral 2V 12:37:22 PLASTERING SUPERVISOR CPT-31048 Chest 2V Frontal and Lat 17:15:26 CDT CPT-38631 Abx/Therapy Injection 18:54:02 CDT CPT-J0696 Rocephin 1000 mg (Ceftriaxone) 16:00:32 CDT CPT-67098 Chest 2V Frontal and Lat 15:26:45 CDT CPT-05427 Chest 2V Frontal and Lat 10:23:27 CDT CPT-76713 Venipuncture Draw Fee 10:11:00 CDT CPT-70683 Administration single or combination vaccine inc oral 11 :56:38 CDT CPT-29520 Influenza split virus > age 3 11:56:38 CDT CPT-10839 Venipuncture Draw Fee 08:49:54 PLASTERING SUPERVISOR CPT-71249 EKG Trac and Interp 17:54:19 PLASTERING SUPERVISOR
--- OUTSIDE RECORDS SUMMARY | 2018-07-02 18:53 | XMS REPORT | Clinical Summary ---
[...] HYPOGLYCEMIA, TYPE II 250.80 Resolved Zainnivia Araceli AMRROQUIN Diabetes mellitus with other specified manifestations, 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 Kacey BOBTAIL DRIVER Benign paroxysmal positional vertigo Vertigo, benign paroxysmal position 386.11 Inactive Mima Kacey BOBTAIL DRIVER Benign paroxysmal positional vertigo High-risk sexual behavior V69.2 Active Alina Castaneda MD PhD High-risk sexual behavior Erectile dysfunction 302.72 Active Alian Castaneda MD PhD Psychosexual dysfunction with inhibited [...] MD PhD SINUSITIS, ACUTE ICD-461.9 Inactive Alina Castaenda MD PhD BRONCHITIS, ACUTE ICD-466.0 Inactive Alina Castaneda MD PhD PNEUMONIA, ORGANISM UNSPECIFIED ICD-486 Inactive Alina Castaneda MD PhD RIB PAIN, RIGHT SIDED ICD-786.50 Inactive Alina Castaneda MD PhD SKIN LESION ICD-709.9 Inactive Alina Castaneda MD PhD SINUSITIS, ACUTE ICD-461.9 Inactive Alina Castaneda MD PhD DIABETIC HYPOGLYCEMIA, TYPE II ICD-250.80 Inactive Marvel MARRQOUIN 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 Inactive Alina Castaneda MD [...] 10u lunch and supper INSULIN LISPRO (HUMAN) 24662357590 Active Marvel Araceli MARROQUIN Active LATUDA 120 MG ORAL TABS 1 pill by mouth nightly LURASIDONE HCL 44075128609 Active Alina Castaneda MD PhD Active COLACE 100 MG CAPS 1 pill by mouth twice daily, for constipation DOCUSATE SODIUM 71810180751 Active Alina Castaneda MD PhD Active TRUETEST TEST STRP check blood sugars 3x/day GLUCOSE BLOOD 49194778242 Active Malnivia 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 CUT PRESS OPERATOR Active ACCU-CHEK ROSA UZMA Use device to check blood sugars BLOOD GLUCOSE MONITORING SUPPL 55253225148 No Longer Active Marvel 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 CUT PRESS OPERATOR Active ACCU-CHEK ROSA INVITR STRP use strips with device to check blood sugars 3 times daily GLUCOSE BLOOD 96980493600 No Longer Active Brooksnivia Araceli MENDOZAP Active VERAPAMIL HCL ER 180 MG ORAL CR-TABS 1 pill by mouth twice daily, for migraine prevention VERAPAMIL HCL 78741330099 Active Alina Castaneda MD PhD Active CYCLOBENZAPRINE HCL 10 MG TABS 1 tablet by mouth three times daily, scheduled CYCLOBENZAPRINE HCL 31315949024 No Longer Active Alina Castaneda MD PhD Active HUMALOG 100 UNIT/ML SOLN Take 20 units with breakfast, 10u with lunch and suppetr. INSULIN LISPRO (HUMAN) 20117370208 No Longer Active Alina Castaneda MD PhD Active TRUETEST TEST STRP check sugars 4x/day GLUCOSE BLOOD 80798899934 No Longer Active Alina Castaneda MD PhD Active MORPHINE SULFATE 30 MG TABS 1 pill by mouth twice daily, for pain MORPHINE SULFATE 60520009764 Active Mason Loredo MD Active ACYCLOVIR 400 MG ORAL TABS 1 pill three times daily x 5 days, for cold sore outbreak ACYCLOVIR 45852437331 No Longer Active Alina Castaneda MD PhD Active PENICILLIN V POTASSIUM 500 MG TABS 1 pill by mouth three times daily PENICILLIN V POTASSIUM 82651631378 No Longer Active Alina Castaneda MD PhD Active UROXATRAL 10 MG [id number] Take 1 tablet by mouth daily ALFUZOSIN HCL 58873162784 No Longer Active Alina Castaneda MD PhD Active THIOTHIXENE 5 MG CAPS by mouth twice a day THIOTHIXENE 06755999807 No Longer Active Alina Castaneda MD PhD Active ZYPREXA 7.5 MG TABS 1 at HS OLANZAPINE 42193442184 No Longer Active Alina Castaneda MD PhD Active LEVEMIR 100 UNIT/ML SOLN Take 70 u at 7-8pm INSULIN DETEMIR 38970847734 Active Mallashondaeh Ziglari CUT PRESS OPERATOR Active BD INSULIN SYRINGE 28G X 1/2" 1 ML MISC 1 four times per day INSULIN SYRINGE-NEEDLE U-100 69737793193 Active Maljohn Mackenzieglari CUT PRESS OPERATOR Active TOLTERODINE TARTRATE 2 MG TABS 1 pill twice daily, for bladder TOLTERODINE TARTRATE 42977326643 Active Alina Castaneda MD PhD Active DETROL LA 4 MG [id number] Take 1 tablet by mouth daily TOLTERODINE TARTRATE 82696648333 No Longer Active Alina Castaneda MD PhD Active HYDROCODONE-ACETAMINOPHEN 5-325 MG TABS 2 tabs by mouth three times daily as needed for pain HYDROCODONE-ACETAMINOPHEN 54075898389 Active Alina Castaneda MD PhD Active TERESE CONTOUR TEST STRP monitor blood sugars 3x/day GLUCOSE BLOOD 55314660861 No Longer Active Alina Castaneda MD PhD Active EQL TRUETEST TEST STRP Test blood sugar TID GLUCOSE BLOOD 49928963120 No Longer Active Alina Castaneda MD PhD Active FLUTICASONE PROPIONATE 50 MCG/ACT SUSP 2 sprays each nostril qDay x 30 days FLUTICASONE PROPIONATE 69124721387 No Longer Active Alina Castaneda MD PhD Active IBUPROFEN 200 MG TABS 1 Q 6 hr. PRN IBUPROFEN 23521498302 No Longer Active Alina Castaneda MD PhD Active NIACIN ER 500 MG CR-TABS 4 qHS (for triglycerides) NIACIN 08726601435 No Longer Active Alina Castaneda MD PhD Active ALFUZOSIN HCL ER 10 MG [id number] 1 tablet daily ALFUZOSIN HCL 54041253345 Active Vanessa Hickey MD Active CLONAZEPAM 1 MG TABS 1 pill by mouth three times daily CLONAZEPAM 51764777569 Active Alina Castaneda MD PhD Active LOVAZA 1 GM CAPS 4 daily (for triglycerides) HODLC-5-RQTR ETHYL ESTERS 09358560785 Active Alina Castaneda MD PhD Active SAPHRIS 5 MG SUBL by mouth twice a day ASENAPINE MALEATE 20667805485 No Longer Active Marvel MARROQUIN Active ACETAMINOPHEN 500 MG TABS 2 Q 6 hr. PRN ACETAMINOPHEN 72797828665 No Longer Active Marvel MARROQUIN Active ORPHENADRINE CITRATE ER 100 MG [id number] 1 every 12 hr. as needed ORPHENADRINE CITRATE 52212246628 No Longer Active Alina Castaneda MD PhD Active NIACIN CR 500 MG CR-TABS 2 qHS NIACIN 87761702135 No Longer Active Alina Castaneda MD PhD Active AMOXICILLIN 500 MG CAPS 2 po BID x 10 days AMOXICILLIN 10172935930 No Longer Active Alina Castaneda MD PhD Active HYDROCODONE-ACETAMINOPHEN 7.5-325 MG TABS 1 four times a day as needed for pain HYDROCODONE-ACETAMINOPHEN 59691195520 No Longer Active Alina Castaneda MD PhD Active METFORMIN HCL ER 500 MG [id number]-LZC Take three tablets by mouth everyday METFORMIN HCL 76979498408 Active Marvel MENDOZAP Active DOXEPIN HCL 10 MG CAPS Take 1 tablet by mouth daily DOXEPIN HCL 17186203685 No Longer Active Salina Han RMA Active NAVANE 10 MG CAPS 1/2 tablet twice a day THIOTHIXENE No Longer Active Salina Han RMA Active CYCLOBENZAPRINE HCL 10 MG TABS 1/2 tablet by mouth every 8 hours as needed for muscle spasms CYCLOBENZAPRINE HCL 17671071622 No Longer Active Alina Castaneda MD PhD Active BACTROBAN 2 % CREAM apply to ear and nose twice daily MUPIROCIN CALCIUM 57398222385 No Longer Active Alina Castaneda MD PhD Active HYDROCODONE-ACETAMINOPHEN 5-325 MG TABS take one tablet by mouth every four hours as needed for pain HYDROCODONE-ACETAMINOPHEN 04996834168 No Longer Active Alina Castaneda MD PhD Active ZOLPIDEM TARTRATE 10 MG TABS take at bedtime ZOLPIDEM TARTRATE 02488571050 Active Alina Castaneda MD PhD Active ZYPREXA 5 MG TABS take one tablet by mouth every evening OLANZAPINE 63030904446 No Longer Active Alina Castaneda MD PhD Active ALBUTEROL SULFATE 0.083 % NEBU SOLN one vial per nebulizer TID and PRN cough/ soa ALBUTEROL SULFATE 74377028000 No Longer Active Alina Castaneda MD PhD Active GUAIFENESIN 600 MG [id number]-XJP 1 tablet by mouth twice daily if needed for cough GUAIFENESIN 65587983776 No Longer Active Marvel MENDOZAP Active AZITHROMYCIN 500 MG SOLR 1 po q day AZITHROMYCIN 03675283919 No Longer Active Alina Castaneda MD PhD Active METOPROLOL SUCCINATE 100 MG DE55N-ZSO 1 by mouth daily for blood pressure METOPROLOL SUCCINATE 96076393938 Active Alina Castaneda MD PhD Active PROMETHAZINE-CODEINE 6.25-10 MG/5ML SYRP 1 tsp po q 6 hours prn cough PROMETHAZINE-CODEINE 43380103194 No Longer Active Alina Castaneda MD PhD Active CEFDINIR 300 MG CAPS by mouth twice a day CEFDINIR 23251867650 No Longer Active Alina Castaneda MD PhD Active METFORMIN HCL 500 MG [id number] Take 3 tablets by mouth everyday METFORMIN HCL 60214713937 No Longer Active Alina Castaneda MD PhD Active LEVEMIR 100 UNIT/ML SOLN 90 units SQ qHS INSULIN DETEMIR 28896822547 No Longer Active Marvel MARROQUIN Active TOPROL XL 100 MG [id number]-ZIL 1 @ HS METOPROLOL SUCCINATE 22245474545 No Longer Active Marvel MARROQUIN Active ALLOPURINOL 300 MG TABS Take one by mouth daily ALLOPURINOL 40421392427 Active Alina Castaneda MD PhD Active ZYPREXA 10 MG TABS Take one by mouth daily OLANZAPINE 32916379865 No Longer Active Alina Castaneda MD PhD Active NOVOLOG 100 UNIT/ML SOLN 40 units with every meal INSULIN ASPART 42930094108 No Longer Active Alnia Castaneda MD PhD Active VERAPAMIL HCL CR 120 MG TAB CR 1 qPM VERAPAMIL HCL 96094656146 No Longer Active Salina Han A Active ZYPREXA 15 MG TABS Take 1 tablet by mouth daily OLANZAPINE 60246497760 No Longer Active Brooksjohn MARROQUIN Active LISINOPRIL 20 MG TABS 1 BID LISINOPRIL 27703313984 Active Alina Castaneda MD PhD Active ALBUTEROL SULFATE (2.5 MG/3ML) 0.083% NEBU 1 neb tid and prn cough ALBUTEROL SULFATE 37544861665 No Longer Active Alina Castaneda MD PhD Active FLUVOXAMINE MALEATE 100 MG TABS Take one (1) tablet by mouth am, 1/2 at noon, 1 pm FLUVOXAMINE MALEATE 14624026852 Active Alina Castaneda MD PhD Active TRAVATAN Z 0.004 % SOLN 1 gtt each eye daily TRAVOPROST 51967288913 Active CRYSTAL Suarez Active LANTUS 100 UNIT/ML SOLN 60 units sq q hs INSULIN GLARGINE 46195850055 No Longer Active CRYSTAL Suarez Active ALBUTEROL SULFATE (2.5 MG/3ML) 0.083% NEBU 1 neb tid and prn cough ALBUTEROL SULFATE (2.5 MG/3ML) 0.083% NEBU 369702 ALBUTEROL SULFATE Inactive ZYPREXA 15 MG TABS Take 1 tablet by mouth daily ZYPREXA 15 MG TABS 142772 OLANZAPINE Inactive VERAPAMIL HCL CR 120 MG TAB CR 1 qPM VERAPAMIL HCL CR 120 MG TAB CR VERAPAMIL HCL Inactive ZYPREXA 10 MG TABS Take one by mouth daily ZYPREXA 10 MG TABS 467802 OLANZAPINE Inactive TOPROL XL 100 MG [id number] 1 @ HS TOPROL XL 100 MG [id number]-ZPW METOPROLOL SUCCINATE Inactive LEVEMIR 100 UNIT/ML SOLN 90 units SQ qHS LEVEMIR 100 UNIT/ML SOLN INSULIN DETEMIR Inactive PROMETHAZINE-CODEINE 6.25-10 MG/5ML SYRP 1 tsp po q 6 hours prn cough PROMETHAZINE-CODEINE 6.25-10 MG/5ML SYRP 585732 PROMETHAZINE- CODEINE Inactive GUAIFENESIN 600 MG BX07M-EJW 1 tablet by mouth twice daily if needed for cough GUAIFENESIN 600 MG [id number] GUAIFENESIN Inactive ALBUTEROL SULFATE 0.083 % NEBU SOLN one vial per nebulizer TID and PRN cough/ soa ALBUTEROL SULFATE 0.083 % NEBU SOLN 721884 ALBUTEROL SULFATE Inactive ZYPREXA 5 MG TABS take one tablet by mouth every evening ZYPREXA 5 MG TABS 248771 OLANZAPINE Inactive HYDROCODONE-ACETAMINOPHEN 5-325 MG TABS take one tablet by mouth every four hours as needed for pain HYDROCODONE-ACETAMINOPHEN 5-325 MG TABS 896436 HYDROCODONE-ACETAMINOPHEN Inactive BACTROBAN 2 % CREAM apply to ear and nose twice daily BACTROBAN 2 % CREAM 668312 MUPIROCIN CALCIUM Inactive CYCLOBENZAPRINE HCL 10 MG TABS 1/2 tablet by mouth every 8 hours as needed for muscle spasms CYCLOBENZAPRINE HCL 10 MG TABS 609800 CYCLOBENZAPRINE HCL Inactive NAVANE 10 MG CAPS 1/2 tablet twice a day NAVANE 10 MG CAPS THIOTHIXENE Inactive DOXEPIN HCL 10 MG CAPS Take 1 tablet by mouth daily DOXEPIN HCL 10 MG CAPS 5210560 DOXEPIN HCL Inactive HYDROCODONE-ACETAMINOPHEN 7.5-325 MG TABS 1 four times a day as needed for pain HYDROCODONE-ACETAMINOPHEN 7.5-325 MG TABS 832577 HYDROCODONE-ACETAMINOPHEN Inactive NIACIN CR 500 MG CR-TABS 2 qHS NIACIN CR 500 MG CR- TABS NIACIN Inactive ORPHENADRINE CITRATE ER 100 MG [id number]-[id number] 1 every 12 hr. as needed ORPHENADRINE CITRATE ER 100 MG [id number] ORPHENADRINE CITRATE Inactive ACETAMINOPHEN 500 MG TABS 2 Q 6 hr. PRN ACETAMINOPHEN 500 MG TABS 865492 ACETAMINOPHEN Inactive SAPHRIS 5 MG SUBL by mouth twice a day SAPHRIS 5 MG SUBL ASENAPINE MALEATE Inactive NIACIN ER 500 MG CR-TABS 4 qHS (for triglycerides) NIACIN ER 500 MG CR-TABS NIACIN Inactive IBUPROFEN 200 MG TABS 1 Q 6 hr. PRN IBUPROFEN 200 MG TABS 484618 IBUPROFEN Inactive FLUTICASONE PROPIONATE 50 MCG/ACT SUSP 2 sprays each nostril qDay x 30 days FLUTICASONE PROPIONATE 50 MCG/ACT SUSP 060935 FLUTICASONE PROPIONATE Inactive EQL TRUETEST TEST STRP Test blood sugar TID EQL TRUETEST TEST STRP GLUCOSE BLOOD Inactive TERESE CONTOUR TEST STRP monitor blood sugars 3x/day TERESE CONTOUR TEST STRP GLUCOSE BLOOD Inactive DETROL LA 4 MG [id number] Take 1 tablet by mouth daily DETROL LA 4 MG [id number] TOLTERODINE TARTRATE Inactive ZYPREXA 7.5 MG TABS 1 at HS ZYPREXA 7.5 MG TABS 031961 OLANZAPINE Inactive THIOTHIXENE 5 MG CAPS by mouth twice a day THIOTHIXENE 5 MG CAPS 645252 THIOTHIXENE Inactive UROXATRAL 10 MG RL02M-JGH Take 1 tablet by mouth daily UROXATRAL 10 MG [id number] ALFUZOSIN HCL Inactive ACYCLOVIR 400 MG ORAL TABS 1 pill three times daily x 5 days, for cold sore outbreak ACYCLOVIR 400 MG ORAL TABS 252904 ACYCLOVIR Inactive TRUETEST TEST STRP check sugars 4x/day TRUETEST TEST STRP GLUCOSE BLOOD Inactive HUMALOG 100 UNIT/ML SOLN Take 20 units with breakfast, 10u with lunch and suppetr. HUMALOG 100 UNIT/ML SOLN INSULIN LISPRO ( HUMAN) Inactive CYCLOBENZAPRINE HCL 10 MG TABS 1 tablet by mouth three times daily, scheduled CYCLOBENZAPRINE HCL 10 MG TABS 223258 CYCLOBENZAPRINE HCL Inactive ACCU-CHEK ROSA INVITR STRP use strips with device to check blood sugars 3 times daily ACCU-CHEK ROSA INVITR STRP GLUCOSE BLOOD Inactive ACCU-CHEK ROSA UZMA Use device to check blood sugars ACCU-CHEK ROSA UZMA BLOOD GLUCOSE MONITORING SUPPL Inactive CEFDINIR 300 MG CAPS by mouth twice a day CEFDINIR 300 MG CAPS 844089 CEFDINIR Inactive AZITHROMYCIN 500 MG SOLR 1 po q day AZITHROMYCIN 500 MG SOLR 682997 AZITHROMYCIN Inactive AMOXICILLIN 500 MG CAPS 2 po BID x 10 days AMOXICILLIN 500 MG CAPS 429054 AMOXICILLIN Inactive PENICILLIN V POTASSIUM 500 MG TABS 1 pill by mouth three times daily PENICILLIN V POTASSIUM 500 MG TABS 137322 PENICILLIN V POTASSIUM Inactive Immunizations Vaccine Administration [...] Fluvirin, Fluarix, Agriflu(>=18 yo)) Fluzone (>3 yrs.) [[id number]] Influenza, seasonal, injectable pneumococcal immunization administered Pneumovax [...] HGBA1C - Chemistry sodium, serum 131 mmol/L 602-796 4682/12/30 potassium, serum 5.0 mmol/L 3.5-5.2 chloride, serum 95 mmol/L 98-107 carbon dioxide, venous blood 26.7 mmol/L 21.0-32.0 blood glucose 112 mg/dL 65-110 calcium, serum 9.2 mg/dL 8.5-10.1 urea nitrogen, blood 12 mg/dL 7-18 creatinine, serum 1.10 mg/dL 0.60-1.30 hemoglobin A1C, blood, as % of total hemoglobin 5.8 % 4.3-6.0 Lab Report: Basic Metabolic Panel, HGBA1C, MICROALBUMIN - Chemistry sodium, serum 137 mmol/L 387-531 4561/05/19 potassium, serum 5.2 mmol/L 3.5-5.2 chloride, serum [...] microalbumin, urine 10 0-19 Lab Report: Chlamydia/GC APTIMA/42793, HIV-1/2 Agn/Dominga/09867, RPR (DX) W ... - Chemistry hepatitis B surface antigen NON-REACTIVE NON-REACTIVE Lab Report: Chlamydia/GC APTIMA/79535, HIV-1/2 Agn/Dominga/50949, RPR (DX) W ... - Lab chlamydia DNA probe NOT DETECTED NOT DETECTED Lab Report: Chlamydia/GC APTIMA/92731, HIV-1/2 Agn/Dominga/95436, RPR (DX) W ... - Microbiology Neisseria gonorrhoeae DNA probe NOT DETECTED NOT DETECTED Lab Report: Chlamydia/GC APTIMA/53565, HIV-1/2 Agn/Dominga/47126, RPR (DX) W ... - Serology rapid plasma reagin antibody titer NON-REACTIVE NON-REACTIVE Lab Report: Comp. Metabolic Panel - Chemistry sodium, serum 127 mmol/L 278-488 6344/10/27 potassium, serum 4.1 mmol/L 3.5-5.2 chloride, serum [...] CBC - Chemistry cholesterol, serum 131 mg/dL 760-046 2302/06/03 triglyceride, serum, fasting 383 mg/dL 30-200 HDL [...] mg/dL Encounters Code Encounter Date Provider Facility CPT-65850 Level 3 Est. Patient 09:34:56 CDT Alina Castaneda MD [facility] [address] CPT-13313 Level 3 Est. Patient 21:40:19 CDT Mima Erazo APRN [facility] CPT-45105 Level 3 Est. Patient 09:26:40 CDT Marvel MARROQUIN [facility] CPT-67647 Level 3 Est. Patient 12:36:43 CDT Vanessa Hickey MD [facility] CPT-50267 Level 3 Est. Patient 12:57:49 CDT Vanessa Hickey MD [facility] CPT-44051 Level 3 Est. Patient 00:28:25 CDT Alina Castaneda MD [facility] [address] CPT-39543 Level 2 Est. Patient 12:52:14 CDT Alina Castaneda MD [facility] [address] CPT-71335 Level 3 Est. Patient 11:51:18 QUALITY ASSURANCE COORDINATOR Alina Castaneda MD [facility] CPT-86434 Level 3 Est. Patient 10:09:22 QUALITY ASSURANCE COORDINATOR Alina Castaneda MD [facility] [address] CPT-52606 Level 3 Est. Patient 14:36:26 QUALITY ASSURANCE COORDINATOR Marvel Araceli [facility]-30233 Level 3 Est. Patient 13:34:47 QUALITY ASSURANCE COORDINATOR Alina Castaneda MD [facility]-94527 Level 3 Est. Patient 19:52:08 QUALITY ASSURANCE COORDINATOR Alina Castaneda MD [facility]73181 Level 3 Est. Patient 10:01:51 QUALITY ASSURANCE COORDINATOR Marvel Thurstonestela [facility]-04658 Level 3 Est. Patient 21:54:06 CDT Vanessa Hickey MD [facility]-28627 Level 3 Est. Patient 08:54:46 CDT Alina Castaneda MD [facility]08848 Level 3 Est. Patient 09:32:11 CDT Brookslashondanivia Araceli [facility]-07735 Level 3 Est. Patient 12:02:49 CDT Alina Castaneda MD [facility]-17194 Level 3 Est. Patient 19:17:33 CDT Alina Castaneda MD [facility]81212 Level 3 Est. Patient 13:19:10 CDT Brooksjohn Charles [facility]-98255 Level 3 Est. Patient 08:20:05 CDT Alina Castaneda MD [facility]70226 Level 3 Est. Patient 15:17:18 CDT Alina Castaneda MD [facility]56574 Level 3 Est. Patient 14:25:36 QUALITY ASSURANCE COORDINATOR Marvel Araceli [facility]-55719 Level 3 Est. Patient 10:09:15 QUALITY ASSURANCE COORDINATOR Marvel Araceli [facility] [place]241 Level 3 Est. Patient 21:28:43 CDT Alina Castaneda MD [facility]-98810 Level 3 Est. Patient 15:20:11 CDT Marvel Charles [facility]-61475 Level 4 Est. Patient 19:08:12 CDT Alina Castaneda MD [facility]-22243 Level 3 Est. Patient 15:06:39 CDT Marvel Charles [facility]-07433 Level 4 Est. Patient 17:48:15 CDT Alina Castaneda MD [facility]-30050 Level 3 Est. Patient 14:53:49 CDT Alina Castaneda MD [facility]-71534 Level 3 Est. Patient 09:35:16 CDT Alina Castaneda MD [facility]-40803 Level 3 Est. Patient 12:23:22 CDT Alina Castaneda MD [facility]-75730 Level 3 Est. Patient 16:19:15 CDT Alina Castaneda MD [facility]-30748 Level 3 Est. Patient 21:39:56 QUALITY ASSURANCE COORDINATOR Alina Castaneda MD [facility]-62802 Level 4 Est. Patient 14:12:56 QUALITY ASSURANCE COORDINATOR Alina Castaneda MD [facility]-17751 Level 2 Est. Patient 15:34:57 QUALITY ASSURANCE COORDINATOR Alina Castaneda MD [facility]-42648 Level 3 Est. Patient 12:17:04 QUALITY ASSURANCE COORDINATOR Alina Castaneda MD [facility]-00244 Level 3 Est. Patient 09:18:18 QUALITY ASSURANCE COORDINATOR Marvel Charles [facility]-44005 Level 2 Est. Patient 21:50:24 CDT Alina Castaneda MD [facility]-24249 Level 3 Est. Patient 09:17:28 CDT Marvel Charles [facility]-47192 Level 4 Est. Patient 18:54:02 CDT Alina Castaneda MD [facility]73196 Level 3 Est. Patient 10:47:10 CDT Alina Castaneda MD [facility]27656 Level 3 Est. Patient 09:22:20 CDT Marvel Charles [facility]-89193 Level 3 Est. Patient 16:39:43 CDT Marvel Charles [facility]-69933 Level 3 Est. Patient 16:05:16 CDT Alina Castaneda MD [facility]19935 Level 3 Est. Patient 00:29:15 CDT Alina Castaneda MD [facility]49921 Level 3 Est. Patient 10:49:22 QUALITY ASSURANCE COORDINATOR Marvel Charles [facility]-18333 Level 3 Est. Patient 21:30:19 QUALITY ASSURANCE COORDINATOR Alina Castaneda MD [facility]-63583 Level 4 Est. Patient 17:04:11 QUALITY ASSURANCE COORDINATOR Marvel Charles [facility]-05800 Level 3 Est. Patient 15:34:11 QUALITY ASSURANCE COORDINATOR Marvel Charles [facility]-97849 Level 2 Est. Patient 12:51:58 QUALITY ASSURANCE COORDINATOR Alina Castaneda MD [facility]26998 Level 3 Est. Patient 13:20:01 QUALITY ASSURANCE COORDINATOR Alina Castaneda MD [facility]82686 Level 3 Est. Patient 09:23:35 CDT Alina Castaneda MD PhD [facility] Procedures Code Procedure Name Date Entry Date Standard Description CPT-01053 Bladder Scan 12:36:44 CDT CPT-31107 Bladder Scan 21:54:06 CDT CPT-G0008 Administration of Influenza Virus Vaccine 13:05:26 CDT CPT-53183 Fluzone Quadrivalent Intramuscular Suspension 0.5 ML 13: 05:26 CDT CPT-27472 Administration single or combination vaccine inc oral 11 :49:51 CDT CPT-49528 Pneumovax 11:49:51 CDT CPT-02728 Ribs unilateral 2V 12:37:22 QUALITY ASSURANCE COORDINATOR CPT-04834 Chest 2V Frontal and Lat 17:15:26 CDT CPT-60748 Abx/Therapy Injection 18:54:02 CDT CPT-J0696 Rocephin 1000 mg (Ceftriaxone) 16:00:32 CDT CPT-17259 Chest 2V Frontal and Lat 15:26:45 CDT CPT-19742 Chest 2V Frontal and Lat 10:23:27 CDT CPT-99445 Venipuncture Draw Fee 10:11:00 CDT CPT-27548 Administration single or combination vaccine inc oral 11 :56:38 CDT CPT-92914 Influenza split virus > age 3 11:56:38 CDT CPT-27278 Venipuncture Draw Fee 08:49:54 QUALITY ASSURANCE COORDINATOR CPT-42760 EKG Trac and Interp 17:54:19 QUALITY ASSURANCE COORDINATOR
--- OUTSIDE RECORDS SUMMARY | 2018-07-02 18:59 | XMS REPORT | Clinical Summary ---
Author Author Admin, TERELL Organization [facility] Branding Brand Address Unknown Phone Unavailable Allergies, Adverse Reactions, [...] neoplasms of prostate Hypoglycemia 251.2 Resolved Alina Castandea MD PhD Hypoglycemia, unspecified Diabetes mellitus, type 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 Erazo STRESS ANALYST Benign paroxysmal positional vertigo Vertigo, benign paroxysmal position 386.11 Inactive Mima Erazo STRESS ANALYST Benign paroxysmal positional vertigo High-risk sexual behavior V69.2 Active Alina Castaneda MD PhD High-risk sexual behavior Erectile dysfunction 302.72 Active Alina Castaneda MD PhD Psychosexual dysfunction with inhibited sexual excitement Constipation 564.00 Active Alina Castaneda MD PhD Constipation, unspecified Skin lesion 709.9 Active Alina Castaneda MD PhD Unspecified disorder of skin and subcutaneous tissue Malaise and fatigue 780.79 Active Cherelle Speaks STRESS ANALYST Other malaise and fatigue Diarrhea 787.91 Active Cherelle Speaks STRESS ANALYST Diarrhea PHARYNGITIS 462 Active Cherelle Speaks STRESS ANALYST Acute pharyngitis Colitis 558.9 Active Mima Erazo STRESS ANALYST Other and unspecified noninfectious gastroenteritis and [...] Patient Instruction EFFEXOR XR 37.5 MG ORAL [id number] Take one by mouth daily VENLAFAXINE HCL 42187430619 Active Mima Vadimum ALBAN Active TRAVATAN Z 0.004 % OPHTH SOLN 1 drop each eye daily TRAVOPROST 13910205202 Active Mima Yokum STRESS ANALYST Active FLUVOXAMINE MALEATE 50 MG ORAL TABS 1 tab by mouth daily FLUVOXAMINE MALEATE 76540656279 No Longer Active Mima Vadimum ALBAN Active MORPHINE SULFATE ER 30 MG ORAL CR-TABS Take one capsule BID MORPHINE SULFATE 73592945953 Active Mima Yokum STRESS ANALYST Active TRUEPLUS LANCETS 30G MISC 3x a day LANCETS 36019185670 Active Marvel Charles POWER AND RECOVERY SHIFT ENGINEER Active TRUE METRIX METER W/DEVICE KIT Check blood sugars 3x/day BLOOD GLUCOSE MONITORING SUPPL 78213001549 Active Marvel Mackenzieglari POWER AND RECOVERY SHIFT ENGINEER Active TRUE METRIX BLOOD GLUCOSE TEST INVITR STRP Check blood sugars 3x/day. GLUCOSE BLOOD 24425920829 Active Marvel Mackenzieglari POWER AND RECOVERY SHIFT ENGINEER Active VITAMIN D 2000 UNIT ORAL CAPS Take one by mouth daily CHOLECALCIFEROL 12063157962 Active Mima Yokum STRESS ANALYST Active LATUDA 60 MG ORAL TABS Take one by mouth daily LURASIDONE HCL 06800780690 No Longer Active Mima Yokum STRESS ANALYST Active HUMALOG KWIKPEN 100 UNIT/ML SC SOPN sliding scale if needed INSULIN LISPRO (HUMAN) 36696576670 Active Mima Yokum STRESS ANALYST Active TRAZODONE HCL 100 MG TABS 1 every night to prevent headaches TRAZODONE HCL 17440579706 Active Gabrielle Madl BARREL RIB MATTING MACHINE OPERATOR Active LATUDA 60 MG ORAL TABS 1 tab daily LURASIDONE HCL 80068441146 Active Gabrielle Madl BARREL RIB MATTING MACHINE OPERATOR Active CLONAZEPAM 1 MG TABS 1 pill by mouth three times daily CLONAZEPAM 56816456915 Active Gabrielle Madl BARREL RIB MATTING MACHINE OPERATOR Active [facility] MILK OF MAGNESIA 400 MG/5ML ORAL SUSP 30ml by mouth bid prn MAGNESIUM HYDROXIDE 91006731706 Active Mason Loredo MD Active TYLENOL 8 HOUR 650 MG ORAL CR-TABS 1 tab QID prn ACETAMINOPHEN 74265186396 Active Mason Loredo MD Active MYLANTA GAS RELIEF MAXIMUM STR 125 MG ORAL CAPS 30cc every 4 hours prn 12/01 SIMETHICONE 53403764678 Active Mason Loredo MD Active IMODIUM A-D 2 MG ORAL TABS 1 tab QID as needed LOPERAMIDE HCL 47417574560 Active Mason Loredo MD Active TRAVATAN Z 0.004 % SOLN 1 gtt each eye daily TRAVOPROST 34416403899 No Longer Active Mason Loredo MD Active LISINOPRIL 20 MG TABS 1 BID LISINOPRIL 01520814928 No Longer Active Mason Loredo MD Active LEVEMIR FLEXTOUCH 100 UNIT/ML SC SOPN 60 units SQ each evening, for diabetes INSULIN DETEMIR 98703958082 Active Mima Erazo APRN Active ZOLPIDEM TARTRATE 10 MG TABS take at bedtime ZOLPIDEM TARTRATE 49867109132 No Longer Active Mason Loredo MD Active HYDROCODONE-ACETAMINOPHEN 5-325 MG TABS 2 tabs by mouth three times daily for pain HYDROCODONE-ACETAMINOPHEN 74857341080 No Longer Active Mason Loredo MD Active ZOFRAN 4 MG TABS 1 po q4hr PRN Nausea ONDANSETRON HCL 40291959805 No Longer Active Mason Loredo MD Active LOMOTIL 2.5-0.025 MG ORAL TABS take 1-2 tabs PO after each stool, no more than 8 in 24 hours DIPHENOXYLATE-ATROPINE 71385765233 No Longer Active Mason Loredo MD Active COLACE 100 MG CAPS 1 pill by mouth twice daily, for constipation DOCUSATE SODIUM 71105715370 No Longer Active Mima Erazo APRN Active FLONASE ALLERGY RELIEF 50 MCG/ACT NASAL SUSP One spray each nostril BID x 1 week then daily FLUTICASONE PROPIONATE 22239955614 Active Mima Erazo APRN Active BD PEN NEEDLE MINI U/F 31G X 5 MM MISC 4 a day INSULIN PEN NEEDLE 58145937898 Active Marvel MARROQUIN Active AMITIZA 24 MCG ORAL CAPS Take one capsule BID for constipation LUBIPROSTONE 94387813150 Active Mima Erazo APRN Active TRUEPLUS LANCETS 30G MISC 3 a day LANCETS 59406941337 Active Marvel MARROQUIN Active TOLTERODINE TARTRATE 2 MG TABS 1 pill twice daily, for bladder TOLTERODINE TARTRATE 46944585005 No Longer Active Vanessa Hickey MD Active AMITIZA 24 MCG ORAL CAPS Take one capsule BID for constipation. LUBIPROSTONE 38921394919 No Longer Active aVnessa Hickey MD Active FLUVOXAMINE MALEATE 100 MG ORAL TABS take one tab every AM et HS, and take 1/ 2 tab at noon FLUVOXAMINE MALEATE 58036347435 Active Grace Azam RMA Active METOPROLOL SUCCINATE 100 MG [id number] 1 by mouth daily for blood pressure METOPROLOL SUCCINATE 74081890409 No Longer Active Grace Azam RMA Active METFORMIN HCL ER 500 MG [id number] Take three tablets by mouth everyday METFORMIN HCL 04328253273 No Longer Active Grace Azam RMA Active LOVAZA 1 GM CAPS 4 daily (for triglycerides) OMEGA-3- ACID ETHYL ESTERS 28868926850 No Longer Active Grace Azam RMA Active TRAZODONE HCL 100 MG ORAL TABS 1 tab by mouth for sleep TRAZODONE HCL 14568672622 No Longer Active Grace Azam RMA Active NOVOFINE 32G X 6 MM MISC use one four times per day INSULIN PEN NEEDLE 94544252133 No Longer Active Grace Azam RMA Active BACTROBAN 2 % CREAM Apply to affected area BID for up to 10 days MUPIROCIN CALCIUM 92221891150 No Longer Active Grace Azam RMA Active KEFLEX 500 MG CAP 1 po BID x 7 days CEPHALEXIN 46878648944 No Longer Active Cherelle Avila APRN Active FLUVOXAMINE MALEATE 100 MG TABS Take one (1) tablet by mouth am, 1/2 at noon FLUVOXAMINE MALEATE 15901679159 No Longer Active Mimacecily Erazo STRESS ANALYST Active CORICIDIN HBP CONGESTION/COUGH 10-200 MG ORAL CAPS Take as directed on box as needed for cold/flu symptoms DEXTROMETHORPHAN-GUAIFENESIN 93324951562 Active Cherelle Speaks STRESS ANALYST Active OMEGA-3 300 MG ORAL CAPS 4 caps by mouth daily OMEGA-3 FATTY ACIDS 98748328573 Active Mima Yokum STRESS ANALYST Active FLUVOXAMINE MALEATE 100 MG ORAL TABS Take 1/2 tab at noon FLUVOXAMINE MALEATE 89544140956 No Longer Active Cherelle Avila APRN Active [facility] LUBRICANT EYE DROPS 0.4-0.3 % OPHTH SOLN POLYETHYL GLYCOL-PROPYL GLYCOL 51665058160 Active Mima Erazo APRN Active MIRALAX POWD 17g by mouth daily, for constipation POLYETHYLENE GLYCOL 3350 45322510080 Active Mima Erazo APRN Active TRUETEST TEST STRP check blood sugars 3x/day GLUCOSE BLOOD 67998428535 Active Maliheh Ziglari POWER AND RECOVERY SHIFT ENGINEER Active ACCU-CHEK ROSA UZMA Use device to check blood sugars BLOOD GLUCOSE MONITORING SUPPL 58775100142 No Longer Active Maliheh Ziglari POWER AND RECOVERY SHIFT ENGINEER Active ACCU-CHEK ROSA INVITR STRP use strips with device to check blood sugars 3 times daily GLUCOSE BLOOD 61610958570 No Longer Active Mallashondaeh Ziglari POWER AND RECOVERY SHIFT ENGINEER Active VERAPAMIL HCL ER 180 MG ORAL CR-TABS 1 pill by mouth twice daily, for migraine prevention VERAPAMIL HCL 77282760342 Active Mima Erazo APRN Active CYCLOBENZAPRINE HCL 10 MG TABS 1 tablet by mouth three times daily, scheduled CYCLOBENZAPRINE HCL 79611844462 No Longer Active Alina Castaneda MD PhD Active HUMALOG 100 UNIT/ML SOLN Take 20 units with breakfast, 10u with lunch and suppetr. INSULIN LISPRO (HUMAN) 86698559524 No Longer Active Alina Castaneda MD PhD Active TRUETEST TEST STRP check sugars 4x/day GLUCOSE BLOOD 96779123600 No Longer Active Alina Castaneda MD PhD Active MORPHINE SULFATE 30 MG TABS 1 pill by mouth twice daily, for pain MORPHINE SULFATE 92054011140 No Longer Active Mason Loredo MD Active ACYCLOVIR 400 MG ORAL TABS 1 pill three times daily x 5 days, for cold sore outbreak ACYCLOVIR 49827925313 No Longer Active Alina Castaneda MD PhD Active PENICILLIN V POTASSIUM 500 MG TABS 1 pill by mouth three times daily PENICILLIN V POTASSIUM 48459486219 No Longer Active Alina Castaneda MD PhD Active UROXATRAL 10 MG [id number] Take 1 tablet by mouth daily ALFUZOSIN HCL 19553915430 No Longer Active Alina Castaneda MD PhD Active THIOTHIXENE 5 MG CAPS by mouth twice a day THIOTHIXENE 31962148350 No Longer Active Alina Castaneda MD PhD Active ZYPREXA 7.5 MG TABS 1 at HS OLANZAPINE 30935847231 No Longer Active Alina Castaneda MD PhD Active BD INSULIN SYRINGE 28G X 1/2" 1 ML MISC 1 four times per day INSULIN SYRINGE-NEEDLE U-100 39326610182 Active Marvel Charles [facility] Active DETROL LA 4 MG [id number]-RLT Take 1 tablet by mouth daily TOLTERODINE TARTRATE 83535495555 No Longer Active Alina Castaneda MD PhD Active TERESE CONTOUR TEST STRP monitor blood sugars 3x/day GLUCOSE BLOOD 26020661908 No Longer Active Alina Castaneda MD PhD Active EQL TRUETEST TEST STRP Test blood sugar TID GLUCOSE BLOOD 48586548581 No Longer Active Alina Castaneda MD PhD Active FLUTICASONE PROPIONATE 50 MCG/ACT SUSP 2 sprays each nostril qDay x 30 days FLUTICASONE PROPIONATE 46642502680 No Longer Active Alina Castaneda MD PhD Active IBUPROFEN 200 MG TABS 1 Q 6 hr. PRN IBUPROFEN 51723164801 No Longer Active Alina Castaneda MD PhD Active NIACIN ER 500 MG CR-TABS 4 qHS (for triglycerides) NIACIN 66779045571 No Longer Active Alina Castaneda MD PhD Active ALFUZOSIN HCL ER 10 MG [id number] 1 tablet daily ALFUZOSIN HCL 62001884366 Active Mima Erazo STRESS ANALYST Active SAPHRIS 5 MG SUBL by mouth twice a day ASENAPINE MALEATE 16854044378 No Longer Active Marvel Charles POWER AND RECOVERY SHIFT ENGINEER Active ACETAMINOPHEN 500 MG TABS 2 Q 6 hr. PRN ACETAMINOPHEN 83119219409 No Longer Active Maliheh Ziglari POWER AND RECOVERY SHIFT ENGINEER Active ORPHENADRINE CITRATE ER 100 MG NS80C-PPH 1 every 12 hr. as needed ORPHENADRINE CITRATE 73962288996 No Longer Active Alina Castaneda MD PhD Active NIACIN CR 500 MG CR-TABS 2 qHS NIACIN 21054598231 No Longer Active Alina Castaneda MD PhD Active AMOXICILLIN 500 MG CAPS 2 po BID x 10 days AMOXICILLIN 29480627988 No Longer Active Alina Castaneda MD PhD Active HYDROCODONE-ACETAMINOPHEN 7.5-325 MG TABS 1 four times a day as needed for pain HYDROCODONE-ACETAMINOPHEN 61148586483 No Longer Active Alina Castaneda MD PhD Active DOXEPIN HCL 10 MG CAPS Take 1 tablet by mouth daily DOXEPIN HCL 55701251101 No Longer Active Salina Han [facility] Active NAVANE 10 MG CAPS 1/2 tablet twice a day THIOTHIXENE No Longer Active Salina Han [facility] Active CYCLOBENZAPRINE HCL 10 MG TABS 1/2 tablet by mouth every 8 hours as needed for muscle spasms CYCLOBENZAPRINE HCL 43061723224 No Longer Active Alina Castaneda MD PhD Active BACTROBAN 2 % CREAM apply to ear and nose twice daily MUPIROCIN CALCIUM 69276795760 No Longer Active Alina Castaneda MD PhD Active HYDROCODONE-ACETAMINOPHEN 5-325 MG TABS take one tablet by mouth every four hours as needed for pain HYDROCODONE-ACETAMINOPHEN 08036711152 No Longer Active Alina Castaneda MD PhD Active ZYPREXA 5 MG TABS take one tablet by mouth every evening OLANZAPINE 78042695689 No Longer Active Alina Castaneda MD PhD Active ALBUTEROL SULFATE 0.083 % NEBU SOLN one vial per nebulizer TID and PRN cough/ soa ALBUTEROL SULFATE 72786858548 No Longer Active Alina Castaneda MD PhD Active GUAIFENESIN 600 MG [id number]-HHH 1 tablet by mouth twice daily if needed for cough GUAIFENESIN 45278808698 No Longer Active Marvel MARROQUIN Active AZITHROMYCIN 500 MG SOLR 1 po q day AZITHROMYCIN 17580420285 No Longer Active Alina Castaneda MD PhD Active PROMETHAZINE-CODEINE 6.25-10 MG/5ML SYRP 1 tsp po q 6 hours prn cough PROMETHAZINE-CODEINE 72563663976 No Longer Active Alina Castaneda MD PhD Active CEFDINIR 300 MG CAPS by mouth twice a day CEFDINIR 95232151596 No Longer Active Alina Castaneda MD PhD Active METFORMIN HCL 500 MG [id number] Take 3 tablets by mouth everyday METFORMIN HCL 95848314698 No Longer Active Alina Castaneda MD PhD Active LEVEMIR 100 UNIT/ML SOLN 90 units SQ qHS INSULIN DETEMIR 22292745534 No Longer Active Marvel MARROQUIN Active TOPROL XL 100 MG [id number] 1 @ HS METOPROLOL SUCCINATE 28295270059 No Longer Active Marvel MARROQUIN Active ALLOPURINOL 300 MG TABS Take one by mouth daily ALLOPURINOL 52877173265 Active Mima Yokum STRESS ANALYST Active ZYPREXA 10 MG TABS Take one by mouth daily OLANZAPINE 09808878999 No Longer Active Alina Castaneda MD PhD Active NOVOLOG 100 UNIT/ML SOLN 40 units with every meal INSULIN ASPART 40327179280 No Longer Active Alina Castaneda MD PhD Active VERAPAMIL HCL CR 120 MG TAB CR 1 qPM VERAPAMIL HCL 29902048862 No Longer Active Salina Emely RMA Active ZYPREXA 15 MG TABS Take 1 tablet by mouth daily OLANZAPINE 10809415925 No Longer Active Marvel MENDOZAP Active ALBUTEROL SULFATE (2.5 MG/3ML) 0.083% NEBU 1 neb tid and prn cough ALBUTEROL SULFATE 99166913598 No Longer Active Alina Castaneda MD PhD Active LANTUS 100 UNIT/ML SOLN 60 units sq q hs INSULIN GLARGINE 56710772794 No Longer Active Alina Mendez RMA Active ALBUTEROL SULFATE (2.5 MG/3ML) 0.083% NEBU 1 neb tid and prn cough ALBUTEROL SULFATE (2.5 MG/3ML) 0.083% NEBU 691925 ALBUTEROL SULFATE Inactive ZYPREXA 15 MG TABS Take 1 tablet by mouth daily ZYPREXA 15 MG TABS 137643 OLANZAPINE Inactive VERAPAMIL HCL CR 120 MG TAB CR 1 qPM VERAPAMIL HCL CR 120 MG TAB CR VERAPAMIL HCL Inactive ZYPREXA 10 MG TABS Take one by mouth daily ZYPREXA 10 MG TABS 878312 OLANZAPINE Inactive TOPROL XL 100 MG [id number] 1 @ HS TOPROL XL 100 MG HB69I-PPK METOPROLOL SUCCINATE Inactive LEVEMIR 100 UNIT/ML SOLN 90 units SQ qHS LEVEMIR 100 UNIT/ML SOLN INSULIN DETEMIR Inactive PROMETHAZINE-CODEINE 6.25-10 MG/5ML SYRP 1 tsp po q 6 hours prn cough PROMETHAZINE-CODEINE 6.25-10 MG/5ML SYRP 445459 PROMETHAZINE- CODEINE Inactive GUAIFENESIN 600 MG BC05H-ORX 1 tablet by mouth twice daily if needed for cough GUAIFENESIN 600 MG ER23G-WDP GUAIFENESIN Inactive ALBUTEROL SULFATE 0.083 % NEBU SOLN one vial per nebulizer TID and PRN cough/ soa ALBUTEROL SULFATE 0.083 % [facility] 049367 ALBUTEROL SULFATE Inactive ZYPREXA 5 MG TABS take one tablet by mouth every evening ZYPREXA 5 MG TABS 675715 OLANZAPINE Inactive HYDROCODONE-ACETAMINOPHEN 5-325 MG TABS take one tablet by mouth every four hours as needed for pain HYDROCODONE-ACETAMINOPHEN 5-325 MG TABS 110463 HYDROCODONE-ACETAMINOPHEN Inactive BACTROBAN 2 % CREAM apply to ear and nose twice daily BACTROBAN 2 % CREAM 417762 MUPIROCIN CALCIUM Inactive CYCLOBENZAPRINE HCL 10 MG TABS 1/2 tablet by mouth every 8 hours as needed for muscle spasms CYCLOBENZAPRINE HCL 10 MG TABS 001692 CYCLOBENZAPRINE HCL Inactive NAVANE 10 MG CAPS 1/2 tablet twice a day NAVANE 10 MG CAPS THIOTHIXENE Inactive DOXEPIN HCL 10 MG CAPS Take 1 tablet by mouth daily DOXEPIN HCL 10 MG CAPS 8221909 DOXEPIN HCL Inactive HYDROCODONE-ACETAMINOPHEN 7.5-325 MG TABS 1 four times a day as needed for pain HYDROCODONE-ACETAMINOPHEN 7.5-325 MG TABS 939265 HYDROCODONE-ACETAMINOPHEN Inactive NIACIN CR 500 MG CR-TABS 2 qHS NIACIN CR 500 MG CR- TABS NIACIN Inactive ORPHENADRINE CITRATE ER 100 MG [id number] 1 every 12 hr. as needed ORPHENADRINE CITRATE ER 100 MG [id number] ORPHENADRINE CITRATE Inactive ACETAMINOPHEN 500 MG TABS 2 Q 6 hr. PRN ACETAMINOPHEN 500 MG TABS 029162 ACETAMINOPHEN Inactive SAPHRIS 5 MG SUBL by mouth twice a day SAPHRIS 5 MG SUBL ASENAPINE MALEATE Inactive NIACIN ER 500 MG CR-TABS 4 qHS (for triglycerides) NIACIN ER 500 MG CR-TABS NIACIN Inactive IBUPROFEN 200 MG TABS 1 Q 6 hr. PRN IBUPROFEN 200 MG TABS 427327 IBUPROFEN Inactive FLUTICASONE PROPIONATE 50 MCG/ACT SUSP 2 sprays each nostril qDay x 30 days FLUTICASONE PROPIONATE 50 MCG/ACT SUSP 1762105 FLUTICASONE PROPIONATE Inactive EQL TRUETEST TEST STRP Test blood sugar TID EQL TRUETEST TEST STRP GLUCOSE BLOOD Inactive TERESE CONTOUR TEST STRP monitor blood sugars 3x/day TERESE CONTOUR TEST STRP GLUCOSE BLOOD Inactive DETROL LA 4 MG [id number] Take 1 tablet by mouth daily DETROL LA 4 MG RL29L-HFE TOLTERODINE TARTRATE Inactive ZYPREXA 7.5 MG TABS 1 at HS ZYPREXA 7.5 MG TABS 849577 OLANZAPINE Inactive THIOTHIXENE 5 MG CAPS by mouth twice a day THIOTHIXENE 5 MG CAPS 862350 THIOTHIXENE Inactive UROXATRAL 10 MG JS61L-GHI Take 1 tablet by mouth daily UROXATRAL 10 MG [id number]-DXY ALFUZOSIN HCL Inactive ACYCLOVIR 400 MG ORAL TABS 1 pill three times daily x 5 days, for cold sore outbreak ACYCLOVIR 400 MG ORAL TABS 557865 ACYCLOVIR Inactive TRUETEST TEST STRP check sugars 4x/day TRUETEST TEST STRP GLUCOSE BLOOD Inactive HUMALOG 100 UNIT/ML SOLN Take 20 units with breakfast, 10u with lunch and suppetr. HUMALOG 100 UNIT/ML SOLN INSULIN LISPRO ( HUMAN) Inactive CYCLOBENZAPRINE HCL 10 MG TABS 1 tablet by mouth three times daily, scheduled CYCLOBENZAPRINE HCL 10 MG TABS 015192 CYCLOBENZAPRINE HCL Inactive ACCU-CHEK ROSA INVITR STRP use strips with device to check blood sugars 3 times daily ACCU-CHEK ROSA INVITR STRP GLUCOSE BLOOD Inactive ACCU-CHEK ROSA UZMA Use device to check blood sugars ACCU-CHEK ROSA UZMA BLOOD GLUCOSE MONITORING SUPPL Inactive FLUVOXAMINE MALEATE 100 MG ORAL TABS Take 1/2 tab at noon FLUVOXAMINE MALEATE 100 MG ORAL TABS 611480 FLUVOXAMINE MALEATE Inactive FLUVOXAMINE MALEATE 100 MG TABS Take one (1) tablet by mouth am, 1/2 at noon FLUVOXAMINE MALEATE 100 MG TABS 241599 FLUVOXAMINE MALEATE Inactive BACTROBAN 2 % CREAM Apply to affected area BID for up to 10 days BACTROBAN 2 % CREAM 965875 MUPIROCIN CALCIUM Inactive NOVOFINE 32G X 6 MM MISC use one four times per day NOVOFINE 32G X 6 MM MISC INSULIN PEN NEEDLE Inactive TRAZODONE HCL 100 MG ORAL TABS 1 tab by mouth for sleep TRAZODONE HCL 100 MG ORAL TABS 479637 TRAZODONE HCL Inactive LOVAZA 1 GM CAPS 4 daily (for triglycerides) LOVAZA 1 GM CAPS 870389 EFVGD-[id number] ETHYL ESTERS Inactive METFORMIN HCL ER 500 MG AS87B-XLM Take three tablets by mouth everyday METFORMIN HCL ER 500 MG [id number]-MBX METFORMIN HCL Inactive METOPROLOL SUCCINATE 100 MG BU07C-XHY 1 by mouth daily for blood pressure METOPROLOL SUCCINATE 100 MG EX88P-ILF METOPROLOL SUCCINATE Inactive AMITIZA 24 MCG ORAL CAPS Take one capsule BID for constipation. AMITIZA 24 MCG ORAL CAPS LUBIPROSTONE Inactive TOLTERODINE TARTRATE 2 MG TABS 1 pill twice daily, for bladder TOLTERODINE TARTRATE 2 MG TABS 296216 TOLTERODINE TARTRATE Inactive COLACE 100 MG CAPS 1 pill by mouth twice daily, for constipation COLACE 100 MG CAPS 3246936 DOCUSATE SODIUM Inactive LOMOTIL 2.5-0.025 MG ORAL TABS take 1-2 tabs PO after each stool, no more than 8 in 24 hours LOMOTIL 2.5-0.025 MG ORAL TABS 3675964 DIPHENOXYLATE-ATROPINE Inactive ZOFRAN 4 MG TABS 1 po q4hr PRN Nausea ZOFRAN 4 MG TABS 775173 ONDANSETRON HCL Inactive HYDROCODONE-ACETAMINOPHEN 5-325 MG TABS 2 tabs by mouth three times daily for pain HYDROCODONE-ACETAMINOPHEN 5-325 MG TABS 805431 HYDROCODONE-ACETAMINOPHEN Inactive ZOLPIDEM TARTRATE 10 MG TABS take at bedtime ZOLPIDEM TARTRATE 10 MG TABS 031594 ZOLPIDEM TARTRATE Inactive LISINOPRIL 20 MG TABS 1 BID LISINOPRIL 20 MG TABS 254228 LISINOPRIL Inactive TRAVATAN Z 0.004 % SOLN 1 gtt each eye daily TRAVATAN Z 0.004 % SOLN TRAVOPROST Inactive LATUDA 60 MG ORAL TABS Take one by mouth daily LATUDA 60 MG ORAL TABS LURASIDONE HCL Inactive FLUVOXAMINE MALEATE 50 MG ORAL TABS 1 tab by mouth daily FLUVOXAMINE MALEATE 50 MG ORAL TABS 429696 FLUVOXAMINE MALEATE Inactive CEFDINIR 300 MG CAPS by mouth twice a day CEFDINIR 300 MG CAPS 674460 CEFDINIR Inactive AZITHROMYCIN 500 MG SOLR 1 po q day AZITHROMYCIN 500 MG SOLR 35933274360 AZITHROMYCIN Inactive AMOXICILLIN 500 MG CAPS 2 po BID x 10 days AMOXICILLIN 500 MG CAPS 173251 AMOXICILLIN Inactive PENICILLIN V POTASSIUM 500 MG TABS 1 pill by mouth three times daily PENICILLIN V POTASSIUM 500 MG TABS 702849 PENICILLIN V POTASSIUM Inactive KEFLEX 500 MG CAP 1 po BID x 7 days KEFLEX 500 MG CAP 785496 CEPHALEXIN Inactive Immunizations Vaccine Administration Date Value [...] Fluvirin, Fluarix, Agriflu(>=18 yo)) Fluzone (>3 yrs.) [[id number]] Influenza, seasonal, injectable pneumococcal immunization administered Pneumovax [...] HGBA1C - Chemistry sodium, serum 140 mmol/L 937-320 2486/11/09 potassium, serum 4.0 mmol/L 3.5-5.2 chloride, serum [...] Acid - Chemistry cholesterol, serum 187 mg/dL 420-545 6864/06/14 triglyceride, serum, fasting 246 mg/dL 30-200 HDL [...] negative Encounters Code Encounter Date Provider Facility CPT-18193 Level 3 Est. Patient 09:12:14 CORROSION PREVENTION METAL SPRAYER Mima Erazo [facility] CPT-31001 Level 3 Est. Patient 16:52:51 CDT Vanessa Hickey MD [facility]-69580 Level 3 Est. Patient 17:40:16 CDT Mima Erazo [facility]-57278 Level 3 Est. Patient 14:34:52 CDT Vanessa Hickey MD [facility]-03625 Level 3 Est. Patient 16:27:51 CDT Mima Erazo [facility]-60983 Level 3 Est. Patient 14:39:00 CORROSION PREVENTION METAL SPRAYER Vanessa Hickey MD [facility]-79610 Level 2 Est. Patient 18:43:34 CDT Mima Erazo [facility] CPT-82319 Level 3 Est. Patient 16:22:09 CDT Cherelle Avila [facility] CPT-97840 Level 4 Est. Patient 17:55:14 CDT Mima Erazo [facility] CPT-41102 Level 2 Est. Patient 17:13:21 CDT [id number] Level 3 Est. Patient 14:46:15 CDT Vanessa Hickey MD [facility]-84206 Level 3 Est. Patient 09:34:56 CDT Alina Castaneda MD [facility]24084 Level 3 Est. Patient 21:40:19 CDT Mima Erazo [facility] CPT-36085 Level 3 Est. Patient 09:26:40 CDT Marvel Charles [facility]-81346 Level 3 Est. Patient 12:36:43 CDT Vanessa Hickey MD [facility]-34190 Level 3 Est. Patient 12:57:49 CDT Vanessa Hickey MD [facility]-88479 Level 3 Est. Patient 00:28:25 CDT Alina Castaneda MD [facility]-75809 Level 2 Est. Patient 12:52:14 CDT Alina Castaneda MD [facility]-14996 Level 3 Est. Patient 11:51:18 CORROSION PREVENTION METAL SPRAYER Alina Castaneda [id number] Level 3 Est. Patient 10:09:22 CORROSION PREVENTION METAL SPRAYER Alina Castaneda MD [facility]20734 Level 3 Est. Patient 14:36:26 COR[facility]ION PREVENTION [facility]14723 Level 3 Est. Patient 13:34:47 CORROSION PREVENTION METAL SPRAYER Alina Castaneda MD [facility]10245 Level 3 Est. Patient 19:52:08 CORROSION PREVENTION METAL SPRAYER Alina Castaneda MD [facility]23201 Level 3 Est. Patient 10:01:51 [facility]ION PREVENTION [facility]81459 Level 3 Est. Patient 21:54:06 CDT Vanessa Hickey MD [facility]41463 Level 3 Est. Patient 08:54:46 CDT Alina Castaneda [id number] Level 3 Est. Patient 09:32:11 CDT Marvel Charles [facility]-41235 Level 3 Est. Patient 12:02:49 CDT Alina Castaneda MD [facility]83322 Level 3 Est. Patient 19:17:33 CDT Alina Castaneda MD [facility]38417 Level 3 Est. Patient 13:19:10 CDT Marvel Charles [facility]-96291 Level 3 Est. Patient 08:20:05 CDT Alina [facility] demolished [id number] Level 3 Est. Patient 15:17:18 CDT [phone] Level 3 Est. Patient 14:25:36 [employer] [facility]-83552 Level 3 Est. Patient 10:09:15 [employer] [facility]-50944 Level 3 Est. Patient 21:28:43 CDT Alina [facility] [id number] Level 3 Est. [facility] 15:20:11 [facility] Est[facility] Patient 19:08:12 CDT Alina [facility]aneda MD [facility] [phone] Level 3 Est. Patient 15:06:39 [facility] 4 Est. Patient 17:48:15 CDT Alina [facility]an[facility] MD [facility] [id number] Level 3 Est. Patient 14:53:49 CDT Alina [facility] MD [facility] [phone] Level 3 Est. Patient 09:35:16 CDT Alina [facility] [id number] Level 3 Est. Patient 12:23:22 CDT Alina [facility] [phone] Level 3 Est. Patient 16:19:15 CDT Alina [facility] [id number] Level 3 Est. Patient 21:39:56 [employer] Alina Castaneda MD [facility]06292 Level 4 Est. Patient 14:12:56 [employer] Alina Castaneda MD [facility] [id number] Level 2 Est. Patient 15:34:57 [employer] Alina Castaneda MD [facility] [id number] Level 3 Est. Patient 12:17:04 [employer] Alina Castaneda MD [facility] [id number] Level 3 Est. Patient 09:18:18 [employer] [facility] [place] CPT-23772 Level 2 Est. Patient 21:50:24 CDT Alina Castaneda MD [facility] [id number] Level 3 Est. Patient 09:17:28 CDT [facility]-23059 Level 4 Est. Patient 18:54:02 CDT Alina Castaneda MD [facility] [id number] Level 3 Est. Patient 10:47:10 CDT Alina Castaneda MD [facility] [id number] Level 3 Est. Patient 09:22:20 CDT [facility] [place] CPT-32290 Level 3 Est. Patient 16:39:43 CDT [facility] [place] CPT-02957 Level 3 Est. Patient 16:05:16 CDT Alina Castaneda MD [facility] [id number] Level 3 Est. Patient 00:29:15 CDT Alina Castaneda MD [facility] [id number] Level 3 Est. Patient 10:49:22 [employer] [facility]-55003 Level 3 Est. Patient 21:30:19 [employer] Alina Castaneda MD [facility] [id number] Level 4 Est. Patient 17:04:11 [employer] [facility] [place]61618 Level 3 Est. Patient 15:34:11 [employer] [facility] [place]-36100 Level 2 Est. Patient 12:51:58 [employer] Alina Castaneda MD PhD [facility] CPT-60559 Level 3 Est. Patient 13:20:01 [employer] Alina Castaneda MD PhD [facility] CPT-16509 Level 3 Est. Patient 09:23:35 CDT Alina Castaneda MD PhD [facility] Procedures Code Procedure Name Date Entry Date Standard Description CPT-31797 HGBA1C - LAB USE ONLY 09:30:27 [employer] CPT-86549 BMP - LAB USE ONLY 09:30:27 [employer] CPT-25130 Venipuncture Draw Fee 09:30:26 [employer] CPT-TCMM Transitional Care Mgmt-Moderate 10:25:31 CDT CPT-90708 Bladder Scan 14:34:53 CDT CPT-43742 Bladder Scan 14:39:01 [employer] CPT-TCMM Transitional Care Mgmt-Moderate 10:30:19 [employer] CPT-90892 Bladder Scan 12:36:44 CDT CPT-43051 Bladder Scan 21:54:06 CDT CPT-G0008 Administration of Influenza Virus Vaccine 13:05:26 CDT CPT-35729 Fluzone Quadrivalent Intramuscular Suspension 0.5 ML 13: 05:26 CDT CPT-45786 Administration single or combination vaccine inc oral 11 :49:51 CDT CPT-22882 Pneumovax 11:49:51 CDT CPT-62278 Ribs unilateral 2V 12:37:22 [employer] CPT-28895 Chest 2V Frontal and Lat 17:15:26 CDT CPT-70131 Abx/Therapy Injection 18:54:02 CDT CPT-J0696 Rocephin 1000 mg (Ceftriaxone) 16:00:32 CDT CPT-24869 Chest 2V Frontal and Lat 15:26:45 CDT CPT-31859 Chest 2V Frontal and Lat 10:23:27 CDT CPT-44516 Venipuncture Draw Fee 10:11:00 CDT CPT-53037 Administration single or combination vaccine inc oral 11 :56:38 CDT CPT-80081 Influenza split virus > age 3 11:56:38 CDT CPT-35289 Venipuncture Draw Fee 08:49:54 [employer] CPT-76625 EKG Trac and Interp 17:54:19 [employer]
--- OUTSIDE RECORDS SUMMARY | 2018-07-02 19:00 | XMS REPORT | Clinical Summary ---
Author Author Admin, TERELL Organization [facility] Address Unknown Phone Unavailable Allergies, 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 Erazo [employer] MECHANIC Benign paroxysmal positional vertigo Vertigo, benign paroxysmal position 386.11 Inactive Mima Erazo [employer]CH[employer] Benign paroxysmal positional vertigo High-risk sexual behavior V69.2 Active Alina Castaneda MD PhD High-risk sexual behavior Erectile dysfunction 302.72 Active Alina Castaneda MD PhD Psychosexual dysfunction with inhibited sexual excitement Constipation 564.00 Active Alina Castaneda MD PhD Constipation, unspecified Skin lesion 709.9 Active Alina Castaneda MD PhD Unspecified disorder of skin and subcutaneous tissue Malaise and fatigue 780.79 Active Cherelle Speaks [employer] COM[employer] MECH[employer]IC Other malaise and fatigue Diarrhea 787.91 Active Cherelle Speaks [employer] MECH[employer] Diarrhea PHARYNGITIS 462 Active Cherelle Speaks [employer] COM[employer] MECH[employer]IC Acute pharyngitis Colitis 558.9 Active Mima Erazo [employer] MECHANIC Other and unspecified noninfectious gastroenteritis and colitis WOUND, OPEN, NOSE ICD-873.20 Inactive Alina Castaneda MD PhD DIABETES, TYPE 2 ICD-250.00 Inactive Alina Castaneda MD PhD HYPERTENSION ICD-401.9 Inactive Alina Castaneda MD PhD URI ICD-465.9 Inactive Alina Castaneda MD PhD CHEST PAIN ICD-786.50 Inactive Alina Castaneda MD PhD FH STROKE ICD-V17.1 Inactive Marvel Charles BAG BAILER FATIGUE ICD-780.79 Inactive Alina Castaneda MD PhD [...] SQ each evening, for diabetes INSULIN DETEMIR 20418213747 Active Salina ROJAS Active TRUEPLUS LANCETS 30G MISC 3 a day LANCETS 77053691532 Active Marvel MENDOZAP Active TOLTERODINE TARTRATE 2 MG TABS 1 pill twice daily, for bladder TOLTERODINE TARTRATE 41688510534 No Longer Active Vanessa Hickey MD Active AMITIZA 24 MCG ORAL CAPS Take one capsule BID for constipation. LUBIPROSTONE 86444678018 No Longer Active Vanessa Hickey MD Active LOMOTIL 2.5-0.025 MG ORAL TABS take 1-2 tabs PO after each stool, no more than 8 in 24 hours DIPHENOXYLATE-ATROPINE 93338826838 Active Grace ROJAS Active FLUVOXAMINE MALEATE 100 MG ORAL TABS take one tab every AM et HS, and take 1/ 2 tab at noon FLUVOXAMINE MALEATE 68980579513 Active Grace ROJAS Active METOPROLOL SUCCINATE 100 MG [id number]-PTM 1 by mouth daily for blood pressure METOPROLOL SUCCINATE 99299260606 No Longer Active Grace Nelsonb RMA Active METFORMIN HCL ER 500 MG [id number]-CJT Take three tablets by mouth everyday METFORMIN HCL 23334882073 No Longer Active Grace Azam RMA Active LOVAZA 1 GM CAPS 4 daily (for triglycerides) OMEGA-3- ACID ETHYL ESTERS 00474348968 No Longer Active Grace Azam RMA Active TRAZODONE HCL 100 MG ORAL TABS 1 tab by mouth for sleep TRAZODONE HCL 02204216663 No Longer Active Grace Azam RMA Active NOVOFINE 32G X 6 MM MISC use one four times per day INSULIN PEN NEEDLE 19407133198 No Longer Active Grace Azam RMA Active BACTROBAN 2 % CREAM Apply to affected area BID for up to 10 days MUPIROCIN CALCIUM 95207621794 No Longer Active Grace Azam RMA Active ZOFRAN 4 MG TABS 1 po q4hr PRN Nausea ONDANSETRON HCL 00736989232 Active Salina Han RMA Active KEFLEX 500 MG CAP 1 po BID x 7 days CEPHALEXIN 13813876548 No Longer Active Cherelle Speaks [employer] COM[employer] MECH[employer]IC Active FLUVOXAMINE MALEATE 100 MG TABS Take one (1) tablet by mouth am, 1/2 at noon FLUVOXAMINE MALEATE 84884567964 No Longer Active Mima Erazo [employer] COM[employer] MECHANIC Active CORICIDIN HBP CONGESTION/COUGH 10-200 MG ORAL CAPS Take as directed on box as needed for cold/flu symptoms DEXTROMETHORPHAN-GUAIFENESIN 54561074979 Active Cherelle Speaks AIR COMPRESSOR MECHANIC Active OMEGA-3 300 MG ORAL CAPS 4 caps by mouth daily OMEGA-3 FATTY ACIDS 25750711306 Active Cherelle Speaks AIR COMPRESSOR MECHANIC Active FLUVOXAMINE MALEATE 100 MG ORAL TABS Take 1/2 tab at noon FLUVOXAMINE MALEATE 19618541812 No Longer Active Cherelle Avila AIR COMPRESSOR MECHANIC Active [facility] LUBRICANT EYE DROPS 0.4-0.3 % OPHTH SOLN POLYETHYL GLYCOL-PROPYL GLYCOL 14178470085 Active Mima Erazo [employer] COM[employer] MECHANIC Active CLONAZEPAM 1 MG TABS 1/2 pill by mouth three times daily CLONAZEPAM 64636758192 Active Alina Castaneda MD PhD Active MIRALAX POWD 17g by mouth daily, for constipation POLYETHYLENE GLYCOL 3350 93643076117 Active Alina Castaneda MD PhD Active HYDROCODONE-ACETAMINOPHEN 5-325 MG TABS 2 tabs by mouth three times daily for pain HYDROCODONE-ACETAMINOPHEN 17109864083 Active Mima Erazo [employer] COMPRESS[employer] MECHANIC Active HUMALOG KWIKPEN 100 UNIT/ML SC SOPN 20 units with breakfast, 10 units with lunch, 10 units with dinner, for diabetes INSULIN LISPRO (HUMAN ) 60600737144 Active Alina Castaneda MD PhD Active LATUDA 120 MG ORAL TABS 1 pill by mouth nightly LURASIDONE HCL 50172550294 Active Alina Castaneda MD PhD Active COLACE 100 MG CAPS 1 pill by mouth twice daily, for constipation DOCUSATE SODIUM 50661788107 Active Alina Castaneda MD PhD Active TRUETEST TEST STRP check blood sugars 3x/day GLUCOSE BLOOD 13948547456 Active Marvel Thurstonari BAG BAILER Active ACCU-CHEK ROSA UZMA Use device to check blood sugars BLOOD GLUCOSE MONITORING SUPPL 00554388657 No Longer Active Marvel Mackenzieglari LOPEZ Active ACCU-CHEK ROSA INVITR STRP use strips with device to check blood sugars 3 times daily GLUCOSE BLOOD 02318049849 No Longer Active Marvel MENDOZAP Active VERAPAMIL HCL ER 180 MG ORAL CR-TABS 1 pill by mouth twice daily, for migraine prevention VERAPAMIL HCL 26428168177 Active Alina Castaneda MD PhD Active CYCLOBENZAPRINE HCL 10 MG TABS 1 tablet by mouth three times daily, scheduled CYCLOBENZAPRINE HCL 97502113389 No Longer Active Alina Castaneda MD PhD Active HUMALOG 100 UNIT/ML SOLN Take 20 units with breakfast, 10u with lunch and suppetr. INSULIN LISPRO (HUMAN) 62043043319 No Longer Active Alina Castaneda MD PhD Active TRUETEST TEST STRP check sugars 4x/day GLUCOSE BLOOD 58363111302 No Longer Active Alina Castaneda MD PhD Active MORPHINE SULFATE 30 MG TABS 1 pill by mouth twice daily, for pain MORPHINE SULFATE 98877791928 Active Mima Erazo [employer] MECHANIC Active ACYCLOVIR 400 MG ORAL TABS 1 pill three times daily x 5 days, for cold sore outbreak ACYCLOVIR 73518695316 No Longer Active Alina Castaneda MD PhD Active PENICILLIN V POTASSIUM 500 MG TABS 1 pill by mouth three times daily PENICILLIN V POTASSIUM 14506252049 No Longer Active Alina Castaneda MD PhD Active UROXATRAL 10 MG [id number]-PCU Take 1 tablet by mouth daily ALFUZOSIN HCL 88476448318 No Longer Active Alina Castaneda MD PhD Active THIOTHIXENE 5 MG CAPS by mouth twice a day THIOTHIXENE 81913512099 No Longer Active Alina Castaneda MD PhD Active ZYPREXA 7.5 MG TABS 1 at HS OLANZAPINE 07619456205 No Longer Active Alina Castaneda MD PhD Active BD INSULIN SYRINGE 28G X 1/2" 1 ML MISC 1 four times per day INSULIN SYRINGE-NEEDLE U-100 16273392566 Active [facility] Gur[facility]estela [facility] Active DETROL LA 4 MG [id number]-UDX Take 1 tablet by mouth daily TOLTERODINE TARTRATE 29504729101 No Longer Active Alina Castaneda MD PhD Active TERESE CONTOUR TEST STRP monitor blood sugars 3x/day GLUCOSE BLOOD 00466837907 No Longer Active Alina Castaneda MD PhD Active EQL TRUETEST TEST STRP Test blood sugar TID GLUCOSE BLOOD 37185042644 No Longer Active Alina Castaneda MD PhD Active FLUTICASONE PROPIONATE 50 MCG/ACT SUSP 2 sprays each nostril qDay x 30 days FLUTICASONE PROPIONATE 73510929567 No Longer Active Alina Castaneda MD PhD Active IBUPROFEN 200 MG TABS 1 Q 6 hr. PRN IBUPROFEN 29285986138 No Longer Active Alina Castaneda MD PhD Active NIACIN ER 500 MG CR-TABS 4 qHS (for triglycerides) NIACIN 19676662546 No Longer Active Alina Castaneda MD PhD Active ALFUZOSIN HCL ER 10 MG [id number] 1 tablet daily ALFUZOSIN HCL 95229608937 Active Vanessa Hickey MD Active SAPHRIS 5 MG SUBL by mouth twice a day ASENAPINE MALEATE 38596550296 No Longer Active Maliheh Ziglari BAG BAILER Active ACETAMINOPHEN 500 MG TABS 2 Q 6 hr. PRN ACETAMINOPHEN 27458737946 No Longer Active Maliheh Ziglari BAG BAILER Active ORPHENADRINE CITRATE ER 100 MG GC36V-QMJ 1 every 12 hr. as needed ORPHENADRINE CITRATE 74100664050 No Longer Active Alina Castaneda MD PhD Active NIACIN CR 500 MG CR-TABS 2 qHS NIACIN 30465670633 No Longer Active Alina Castaneda MD PhD Active AMOXICILLIN 500 MG CAPS 2 po BID x 10 days AMOXICILLIN 89872255508 No Longer Active Alina Castaneda MD PhD Active HYDROCODONE-ACETAMINOPHEN 7.5-325 MG TABS 1 four times a day as needed for pain HYDROCODONE-ACETAMINOPHEN 52231584329 No Longer Active Alina Castaneda MD PhD Active DOXEPIN HCL 10 MG CAPS Take 1 tablet by mouth daily DOXEPIN HCL 03858537400 No Longer Active Salina ROJAS Active NAVANE 10 MG CAPS 1/2 tablet twice a day THIOTHIXENE No Longer Active Salina ROBBINSA Active CYCLOBENZAPRINE HCL 10 MG TABS 1/2 tablet by mouth every 8 hours as needed for muscle spasms CYCLOBENZAPRINE HCL 73267423718 No Longer Active Alina Castaneda MD PhD Active BACTROBAN 2 % CREAM apply to ear and nose twice daily MUPIROCIN CALCIUM 96667886926 No Longer Active Alina Castaneda MD PhD Active HYDROCODONE-ACETAMINOPHEN 5-325 MG TABS take one tablet by mouth every four hours as needed for pain HYDROCODONE-ACETAMINOPHEN 24800478352 No Longer Active Alina Castaneda MD PhD Active ZOLPIDEM TARTRATE 10 MG TABS take at bedtime ZOLPIDEM TARTRATE 40375046777 Active Alina Castaneda MD PhD Active ZYPREXA 5 MG TABS take one tablet by mouth every evening OLANZAPINE 71129706804 No Longer Active Alina Castaneda MD PhD Active ALBUTEROL SULFATE 0.083 % NEBU SOLN one vial per nebulizer TID and PRN cough/ soa ALBUTEROL SULFATE 52964912995 No Longer Active Alina Castaneda MD PhD Active GUAIFENESIN 600 MG [id number] 1 tablet by mouth twice daily if needed for cough GUAIFENESIN 85694805934 No Longer Active Marvel MARROQUIN Active AZITHROMYCIN 500 MG SOLR 1 po q day AZITHROMYCIN 38927775103 No Longer Active Alina Castaneda MD PhD Active PROMETHAZINE-CODEINE 6.25-10 MG/5ML SYRP 1 tsp po q 6 hours prn cough PROMETHAZINE-CODEINE 15704085677 No Longer Active Alina Castaneda MD PhD Active CEFDINIR 300 MG CAPS by mouth twice a day CEFDINIR 47533811497 No Longer Active Alina Castaneda MD PhD Active METFORMIN HCL 500 MG II25Y-MVB Take 3 tablets by mouth everyday METFORMIN HCL 80075227984 No Longer Active Alina Castaneda MD PhD Active LEVEMIR 100 UNIT/ML SOLN 90 units SQ qHS INSULIN DETEMIR 02325295053 No Longer Active Marvel MARROQUIN Active TOPROL XL 100 MG MU48P-OLH 1 @ HS METOPROLOL SUCCINATE 63949047326 No Longer Active Marvel MARROQUIN Active ALLOPURINOL 300 MG TABS Take one by mouth daily ALLOPURINOL 15673995078 Active Alina Castaneda MD PhD Active ZYPREXA 10 MG TABS Take one by mouth daily OLANZAPINE 88827340683 No Longer Active Alina Castaneda MD PhD Active NOVOLOG 100 UNIT/ML SOLN 40 units with every meal INSULIN ASPART 32470158755 No Longer Active Alina Castaneda MD PhD Active VERAPAMIL HCL CR 120 MG TAB CR 1 qPM VERAPAMIL HCL 28405244951 No Longer Active Salina ROJAS Active ZYPREXA 15 MG TABS Take 1 tablet by mouth daily OLANZAPINE 80196090723 No Longer Active Marvel MARROQUIN Active LISINOPRIL 20 MG TABS 1 BID LISINOPRIL 18969498201 Active Alina Castaneda MD PhD Active ALBUTEROL SULFATE (2.5 MG/3ML) 0.083% NEBU 1 neb tid and prn cough ALBUTEROL SULFATE 64795004588 No Longer Active Alina Castaneda MD PhD Active TRAVATAN Z 0.004 % SOLN 1 gtt each eye daily TRAVOPROST 76921933662 Active CRYSTAL Suarez Active LANTUS 100 UNIT/ML SOLN 60 units sq q hs INSULIN GLARGINE 26743614384 No Longer Active CRYSTAL Suarez Active ALBUTEROL SULFATE (2.5 MG/3ML) 0.083% NEBU 1 neb tid and prn cough ALBUTEROL SULFATE (2.5 MG/3ML) 0.083% NEBU 276894 ALBUTEROL SULFATE Inactive ZYPREXA 15 MG TABS Take 1 tablet by mouth daily ZYPREXA 15 MG TABS 095431 OLANZAPINE Inactive VERAPAMIL HCL CR 120 MG TAB CR 1 qPM VERAPAMIL HCL CR 120 MG TAB CR VERAPAMIL HCL Inactive ZYPREXA 10 MG TABS Take one by mouth daily ZYPREXA 10 MG TABS 301024 OLANZAPINE Inactive TOPROL XL 100 MG [id number]-EAD 1 @ HS TOPROL XL 100 MG IS67K-WYS METOPROLOL SUCCINATE Inactive LEVEMIR 100 UNIT/ML SOLN 90 units SQ qHS LEVEMIR 100 UNIT/ML SOLN INSULIN DETEMIR Inactive PROMETHAZINE-CODEINE 6.25-10 MG/5ML SYRP 1 tsp po q 6 hours prn cough PROMETHAZINE-CODEINE 6.25-10 MG/5ML SYRP 376820 PROMETHAZINE- CODEINE Inactive GUAIFENESIN 600 MG JE46I-HDM 1 tablet by mouth twice daily if needed for cough GUAIFENESIN 600 MG [id number]-WHF GUAIFENESIN Inactive ALBUTEROL SULFATE 0.083 % NEBU SOLN one vial per nebulizer TID and PRN cough/ soa ALBUTEROL SULFATE 0.083 % NEBU SOLN 699813 ALBUTEROL SULFATE Inactive ZYPREXA 5 MG TABS take one tablet by mouth every evening ZYPREXA 5 MG TABS 894721 OLANZAPINE Inactive HYDROCODONE-ACETAMINOPHEN 5-325 MG TABS take one tablet by mouth every four hours as needed for pain HYDROCODONE-ACETAMINOPHEN 5-325 MG TABS 102986 HYDROCODONE-ACETAMINOPHEN Inactive BACTROBAN 2 % CREAM apply to ear and nose twice daily BACTROBAN 2 % CREAM 500031 MUPIROCIN CALCIUM Inactive CYCLOBENZAPRINE HCL 10 MG TABS 1/2 tablet by mouth every 8 hours as needed for muscle spasms CYCLOBENZAPRINE HCL 10 MG TABS 697018 CYCLOBENZAPRINE HCL Inactive NAVANE 10 MG CAPS 1/2 tablet twice a day NAVANE 10 MG CAPS THIOTHIXENE Inactive DOXEPIN HCL 10 MG CAPS Take 1 tablet by mouth daily DOXEPIN HCL 10 MG CAPS 6409870 DOXEPIN HCL Inactive HYDROCODONE-ACETAMINOPHEN 7.5-325 MG TABS 1 four times a day as needed for pain HYDROCODONE-ACETAMINOPHEN 7.5-325 MG TABS 810972 HYDROCODONE-ACETAMINOPHEN Inactive NIACIN CR 500 MG CR-TABS 2 qHS NIACIN CR 500 MG CR- TABS NIACIN Inactive ORPHENADRINE CITRATE ER 100 MG [id number]-QLH 1 every 12 hr. as needed ORPHENADRINE CITRATE ER 100 MG EE68C-DSM ORPHENADRINE CITRATE Inactive ACETAMINOPHEN 500 MG TABS 2 Q 6 hr. PRN ACETAMINOPHEN 500 MG TABS 782538 ACETAMINOPHEN Inactive SAPHRIS 5 MG SUBL by mouth twice a day SAPHRIS 5 MG SUBL ASENAPINE MALEATE Inactive NIACIN ER 500 MG CR-TABS 4 qHS (for triglycerides) NIACIN ER 500 MG CR-TABS NIACIN Inactive IBUPROFEN 200 MG TABS 1 Q 6 hr. PRN IBUPROFEN 200 MG TABS 433891 IBUPROFEN Inactive FLUTICASONE PROPIONATE 50 MCG/ACT SUSP 2 sprays each nostril qDay x 30 days FLUTICASONE PROPIONATE 50 MCG/ACT SUSP 473258 FLUTICASONE PROPIONATE Inactive EQL TRUETEST TEST STRP Test blood sugar TID EQL TRUETEST TEST STRP GLUCOSE BLOOD Inactive TERESE CONTOUR TEST STRP monitor blood sugars 3x/day TERESE CONTOUR TEST STRP GLUCOSE BLOOD Inactive DETROL LA 4 MG [id number]-GOT Take 1 tablet by mouth daily DETROL LA 4 MG [id number]-JME TOLTERODINE TARTRATE Inactive ZYPREXA 7.5 MG TABS 1 at HS ZYPREXA 7.5 MG TABS 473019 OLANZAPINE Inactive THIOTHIXENE 5 MG CAPS by mouth twice a day THIOTHIXENE 5 MG CAPS 259408 THIOTHIXENE Inactive UROXATRAL 10 MG WT11R-RII Take 1 tablet by mouth daily UROXATRAL 10 MG TY16V-IQU ALFUZOSIN HCL Inactive ACYCLOVIR 400 MG ORAL TABS 1 pill three times daily x 5 days, for cold sore outbreak ACYCLOVIR 400 MG ORAL TABS 665753 ACYCLOVIR Inactive TRUETEST TEST STRP check sugars 4x/day TRUETEST TEST STRP GLUCOSE BLOOD Inactive HUMALOG 100 UNIT/ML SOLN Take 20 units with breakfast, 10u with lunch and suppetr. HUMALOG 100 UNIT/ML SOLN INSULIN LISPRO ( HUMAN) Inactive CYCLOBENZAPRINE HCL 10 MG TABS 1 tablet by mouth three times daily, scheduled CYCLOBENZAPRINE HCL 10 MG TABS 492082 CYCLOBENZAPRINE HCL Inactive ACCU-CHEK ROSA INVITR STRP use strips with device to check blood sugars 3 times daily ACCU-CHEK ROSA INVITR STRP GLUCOSE BLOOD Inactive ACCU-CHEK ROSA UZMA Use device to check blood sugars ACCU-CHEK ROSA UZMA BLOOD GLUCOSE MONITORING SUPPL Inactive FLUVOXAMINE MALEATE 100 MG ORAL TABS Take 1/2 tab at noon FLUVOXAMINE MALEATE 100 MG ORAL TABS 116322 FLUVOXAMINE MALEATE Inactive FLUVOXAMINE MALEATE 100 MG TABS Take one (1) tablet by mouth am, 1/2 at noon FLUVOXAMINE MALEATE 100 MG TABS 780123 FLUVOXAMINE MALEATE Inactive BACTROBAN 2 % CREAM Apply to affected area BID for up to 10 days BACTROBAN 2 % CREAM 282137 MUPIROCIN CALCIUM Inactive NOVOFINE 32G X 6 MM MISC use one four times per day NOVOFINE 32G X 6 MM MISC INSULIN PEN NEEDLE Inactive TRAZODONE HCL 100 MG ORAL TABS 1 tab by mouth for sleep TRAZODONE HCL 100 MG ORAL TABS 176079 TRAZODONE HCL Inactive LOVAZA 1 GM CAPS 4 daily (for triglycerides) LOVAZA 1 GM CAPS 854931 HBKDG-9-ROGR ETHYL ESTERS Inactive METFORMIN HCL ER 500 MG NV77L-ISO Take three tablets by mouth everyday METFORMIN HCL ER 500 MG DX37M-ZDG METFORMIN HCL Inactive METOPROLOL SUCCINATE 100 MG RS68E-GUW 1 by mouth daily for blood pressure METOPROLOL SUCCINATE 100 MG MX91C-TFX METOPROLOL SUCCINATE Inactive AMITIZA 24 MCG ORAL CAPS Take one capsule BID for constipation. AMITIZA 24 MCG ORAL CAPS LUBIPROSTONE Inactive TOLTERODINE TARTRATE 2 MG TABS 1 pill twice daily, for bladder TOLTERODINE TARTRATE 2 MG TABS 845705 TOLTERODINE TARTRATE Inactive CEFDINIR 300 MG CAPS by mouth twice a day CEFDINIR 300 MG CAPS 146949 CEFDINIR Inactive AZITHROMYCIN 500 MG SOLR 1 po q day AZITHROMYCIN 500 MG SOLR 74015135862 AZITHROMYCIN Inactive AMOXICILLIN 500 MG CAPS 2 po BID x 10 days AMOXICILLIN 500 MG CAPS 962572 AMOXICILLIN Inactive PENICILLIN V POTASSIUM 500 MG TABS 1 pill by mouth three times daily PENICILLIN V POTASSIUM 500 MG TABS 549905 PENICILLIN V POTASSIUM Inactive KEFLEX 500 MG CAP 1 po BID x 7 days KEFLEX 500 MG CAP 575999 CEPHALEXIN Inactive Immunizations Vaccine Administration Date Value [...] Fluvirin, Fluarix, Agriflu(>=18 yo)) Fluzone (>3 yrs.) [CPM927] Influenza, seasonal, injectable pneumococcal immunization administered Pneumovax [...] MICROALBUMIN - Chemistry sodium, serum 137 mmol/L 871-289 1444/05/19 potassium, serum 5.2 mmol/L 3.5-5.2 chloride, serum [...] Panel - Chemistry sodium, serum 137 mmol/L 989-157 0885/10/12 potassium, serum 4.8 mmol/L 3.5-5.2 chloride, serum 102 mmol/L 98-107 carbon dioxide, venous blood 27.6 mmol/L 21.0-32.0 blood glucose 168 mg/dL 65-110 calcium, serum 9.0 mg/dL 8.5-10.1 urea nitrogen, blood 15 mg/dL 7-18 creatinine, serum 1.04 mg/dL 0.55-1.30 sodium, serum 138 mmol/L 062-562 6650/11/11 potassium, serum 4.7 mmol/L 3.5-5.2 chloride, serum [...] % 11.6-14.8 platelet count 252 10^3/MM^3 10*3/mm3 762-648 8974/10/12 leukocyte count, blood 5.8 10^3/MM^3 10*3/mm3 4.6-10.2 [...] 240 10^3/MM^3 10*3/mm3 142-424 Lab Report: Chlamydia/GC APTIMA/42969, HIV-1/2 Agn/Dominga/62861, RPR (DX) W ... - Chemistry hepatitis B surface antigen NON-REACTIVE NON-REACTIVE Lab Report: Chlamydia/GC APTIMA/82677, HIV-1/2 Agn/Dominga/92685, RPR (DX) W ... - Lab chlamydia DNA probe NOT DETECTED NOT DETECTED Lab Report: Chlamydia/GC APTIMA/59601, HIV-1/2 Agn/Dominga/57110, RPR (DX) W ... - Microbiology Neisseria gonorrhoeae DNA probe NOT DETECTED NOT DETECTED Lab Report: Chlamydia/GC APTIMA/30938, HIV-1/2 Agn/Dominga/91991, RPR (DX) W ... - Serology rapid plasma reagin antibody titer NON-REACTIVE NON-REACTIVE Lab Report: HGBA1C - Chemistry hemoglobin A1C, blood, as % of total hemoglobin 6.1 % 4.3-6.0 hemoglobin A1C, blood, as % of total hemoglobin 6.3 % 4.3-6.0 Lab Report: Lipid Panel, HEPATIC PANEL, MICROALBUMIN, CBC - Chemistry cholesterol, serum 131 mg/dL 919-729 4171/06/03 triglyceride, serum, fasting 383 mg/dL 30-200 HDL [...] 4.7 mg/dL 2.6-7.2 cholesterol, serum 142 mg/dL 778-320 2821/06/26 triglyceride, serum, fasting 272 mg/dL 30-200 HDL [...] negative Encounters Code Encounter Date Provider Facility CPT-07390 Level 3 Est. Patient 14:39:00 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 Vanessa Hickey MD [facility] CPT-83322 Level 2 Est. Patient 18:43:34 CDT Mima Erazo [facility] [place] CPT-91648 Level 3 Est. Patient 16:22:09 CDT Cherelle Avila [facility] CPT-14690 Level 4 Est. Patient 17:55:14 CDT Mima Erazo [facility] [place] CPT-71974 Level 2 Est. Patient 17:13:21 CDT Alina Castaneda MD PhD [facility] CPT-23938 Level 3 Est. Patient 14:46:15 CDT Vanessa Hickey MD [facility] CPT-22404 Level 3 Est. Patient 09:34:56 CDT Alina Castaneda MD [facility]-10878 Level 3 Est. Patient 21:40:19 CDT Mima Erazo [place] [facility]-89927 Level 3 Est. Patient 09:26:40 CDT Marvel Charles [facility]-54620 Level 3 Est. Patient 12:36:43 CDT Vanessa Hickey MD [facility]-02728 Level 3 Est. Patient 12:57:49 CDT Vanessa Hickey MD [facility]-21929 Level 3 Est. Patient 00:28:25 CDT Alina Castaneda MD [facility]01702 Level 2 Est. Patient 12:52:14 CDT Alina Castaneda MD [facility]-85427 Level 3 Est. Patient 11:51:18 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 Alina Castaneda MD [facility] CPT-80367 Level 3 Est. Patient 10:09:22 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 Alina Castaneda MD [facility]-23781 Level 3 Est. Patient 14:36:26 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 Marvel Charles [facility] [place] CPT-96888 Level 3 Est. Patient 13:34:47 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 Alina Castaneda MD [facility]-38614 Level 3 Est. Patient 19:52:08 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 Alina Castaneda MD [facility] CPT-29354 Level 3 Est. Patient 10:01:51 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 Marvel Charles [facility] [place]-72981 Level 3 Est. Patient 21:54:06 CDT Vanessa Hickey MD [facility]-09480 Level 3 Est. Patient 08:54:46 CDT Alina Castaneda MD [facility]-76716 Level 3 Est. Patient 09:32:11 CDT Marvel Charles [facility] [place]-53244 Level 3 Est. Patient 12:02:49 CDT Alina Castaneda MD [facility]-07121 Level 3 Est. Patient 19:17:33 CDT Alina Castaneda MD [facility]-57845 Level 3 Est. Patient 13:19:10 CDT Marvel Gurdeepajayestela [facility] [place]-25168 Level 3 Est. Patient 08:20:05 CDT Alina Castaneda MD [facility]-74342 Level 3 Est. Patient 15:17:18 CDT Alina Castaneda MD [facility]-17071 Level 3 Est. Patient 14:25:36 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 Marvel Charles [facility] [place]-50980 Level 3 Est. Patient 10:09:15 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 [facility] Level 3 Est. Patient 21:28:43 CDT Alina Castaneda MD [facility]-44588 Level 3 Est. Patient 15:20:11 CDT Marvel Araceli [facility] [place]-19557 Level 4 Est. Patient 19:08:12 CDT Alina Castaneda MD [facility]-82173 Level 3 Est. Patient 15:06:39 CDT Brookslashondanivia Araceli [facility] [place]-15228 Level 4 Est. Patient 17:48:15 CDT Alina Castaneda MD [facility]-42730 Level 3 Est. Patient 14:53:49 CDT Alina Castaneda MD [facility]-67626 Level 3 Est. Patient 09:35:16 CDT Alina Castaneda MD [facility]-07734 Level 3 Est. Patient 12:23:22 CDT Alina Castaneda MD [facility]59664 Level 3 Est. Patient 16:19:15 CDT Alina Castaneda MD [facility]-51093 Level 3 Est. Patient 21:39:56 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 Alina Castaneda MD [facility]-78371 Level 4 Est. Patient 14:12:56 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 Alina Castaneda MD [facility]23077 Level 2 Est. Patient 15:34:57 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 Alina Castaneda MD [facility] [facility]-14261 Level 3 Est. Patient 12:17:04 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 Alina Castaneda MD [facility]-19028 Level 3 Est. Patient 09:18:18 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 [facility] [place]-[address]178 Level 2 Est. Patient 21:50:24 CDT Alina Castaneda MD [facility]-24538 Level 3 Est. Patient 09:17:28 CDT [address] [facility] [place]-54062 Level 4 Est. Patient 18:54:02 CDT Alina Castaneda MD [facility]-58012 Level 3 Est. Patient 10:47:10 CDT Alina Castaneda MD [facility]38064 Level 3 Est. Patient 09:22:20 CDT [address] [facility] [place]-94407 Level 3 Est. Patient 16:39:43 CDT Marvel Charles [facility] [place] CPT-92613 Level 3 Est. Patient 16:05:16 CDT Alina Castaneda MD [facility] CPT-31330 Level 3 Est. Patient 00:29:15 CDT Alina Castaneda MD [facility] CPT-88911 Level 3 Est. Patient 10:49:22 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 Marvel [facility] [place] [facility] [place] CPT-83111 Level 3 Est. Patient 21:30:19 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 Alina Castaneda MD [facility] CPT-37542 Level 4 Est. Patient 17:04:11 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 Marvel Thurstonestela [facility] [place] [facility] [place] CPT-19350 Level 3 Est. 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 Patient 12:51:58 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 Alina Castaneda MD [facility] CPT-80629 Level 3 Est. Patient 13:20:01 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 Alina Castaneda MD [facility] CPT-92679 Level 3 Est. 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 CPT-28436 Bladder Scan 12:36:44 CDT CPT-35405 Bladder Scan 21:54:06 CDT CPT-G0008 Administration of Influenza Virus Vaccine 13:05:26 CDT CPT-24245 Fluzone Quadrivalent Intramuscular Suspension 0.5 ML 13: 05:26 CDT CPT-01724 Administration single or combination vaccine inc oral 11 :49:51 CDT CPT-58854 Pneumovax 11:49:51 CDT CPT-30811 Ribs unilateral 2V 12:37:22 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 CPT-50329 Chest 2V Frontal and Lat 17:15:26 CDT CPT-71996 Abx/Therapy Injection 18:54:02 CDT CPT-J0696 Rocephin 1000 mg (Ceftriaxone) 16:00:32 CDT CPT-01410 Chest 2V Frontal and Lat 15:26:45 CDT CPT-18588 Chest 2V Frontal and Lat 10:23:27 CDT CPT-87043 Venipuncture Draw Fee 10:11:00 CDT CPT-76373 Administration single or combination vaccine inc oral 11 :56:38 CDT CPT-67958 Influenza split virus > age 3 11:56:38 CDT CPT-96766 Venipuncture Draw Fee 08:49:54 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 CPT-94009 EKG Trac and Interp 17:54:19 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
--- OUTSIDE RECORDS SUMMARY | 2018-07-02 19:04 | XMS REPORT | Clinical Summary ---
Author Author Admin, TERELL Organization [facility] Address Unknown Phone Unavailable Allergies, Adverse Reactions, [...] Acute sinusitis, unspecified BRONCHITIS, ACUTE 466.0 Resolved Ailna Castaneda MD PhD Acute bronchitis PNEUMONIA, ORGANISM [...] positional vertigo 386.11 Active Mima Erazo SUPERVISOR MAPPING Benign paroxysmal positional vertigo Vertigo, benign paroxysmal position 386.11 Inactive Mima Erazo SUPERVISOR MAPPING Benign paroxysmal positional vertigo High-risk sexual behavior V69.2 Active Alina Castaneda MD PhD High-risk sexual behavior Erectile dysfunction 302.72 Active Alina Castaneda MD PhD Psychosexual dysfunction with inhibited sexual excitement Constipation 564.00 Active Alina Castaneda MD PhD Constipation, unspecified Skin lesion 709.9 Active Alina Castaneda MD PhD Unspecified disorder of skin and subcutaneous tissue Malaise and fatigue 780.79 Active Cherelle Speaks SUPERVISOR MAPPING Other malaise and fatigue Diarrhea 787.91 Active Cherelle Speaks SUPERVISOR MAPPING Diarrhea PHARYNGITIS 462 Active Cherelle Speaks SUPERVISOR MAPPING Acute pharyngitis Colitis 558.9 Active Mima Erazo SUPERVISOR MAPPING Other and unspecified noninfectious gastroenteritis and colitis WOUND, OPEN, NOSE ICD-873.20 Inactive Alina Castaneda MD PhD DIABETES, TYPE 2 ICD-250.00 Inactive Alina Castaneda MD PhD HYPERTENSION ICD-401.9 Inactive Alina Castaneda MD PhD URI ICD-465.9 Inactive Alina Castaneda MD PhD CHEST PAIN ICD-786.50 Inactive Alina Castaneda MD PhD FH STROKE ICD-V17.1 Inactive Marvel Charles [employer]RA[employer] FATIGUE ICD-780.79 Inactive Alina Castaneda MD PhD [...] mouth twice daily, for constipation DOCUSATE SODIUM 10123116702 No Longer Active Mima Erazo APRN Active FLONASE ALLERGY RELIEF 50 MCG/ACT NASAL SUSP One spray each nostril BID x 1 week then daily FLUTICASONE PROPIONATE 10767556436 Active Mimacecily Erazo APRN Active BD PEN NEEDLE MINI U/F 31G X 5 MM MISC 4 a day INSULIN PEN NEEDLE 41461856988 Active Mallashondaeh Ziglari ENGRAVER [employer] 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 LUBIPROSTONE 61886265713 No Longer Active Vanessa Hickey MD Active LOMOTIL 2.5-0.025 MG ORAL TABS take 1-2 tabs PO after each stool, no more than 8 in 24 hours DIPHENOXYLATE-ATROPINE 01785256395 Active Grace Nascimento RMA Active FLUVOXAMINE MALEATE 100 MG ORAL TABS take one tab every AM et HS, and take 1/ 2 tab at noon FLUVOXAMINE MALEATE 05363980571 Active Gracekailee Nascimento RMA Active METOPROLOL SUCCINATE 100 MG EM02R-AMO 1 by mouth daily for blood pressure METOPROLOL SUCCINATE 07874927437 No Longer Active Grace Nascimento RMA Active METFORMIN HCL ER 500 MG [id number]-MNB Take three tablets by mouth everyday METFORMIN HCL 83143194590 No Longer Active Grace Nascimento RMA Active LOVAZA 1 GM CAPS 4 daily (for triglycerides) OMEGA-3- ACID ETHYL ESTERS 88513075950 No Longer Active Grace Nascimento RMA Active TRAZODONE HCL 100 MG ORAL TABS 1 tab by mouth for sleep TRAZODONE HCL 48426172513 No Longer Active Grace Nascimento RMA Active NOVOFINE 32G X 6 MM MISC use one four times per day INSULIN PEN NEEDLE 51924044671 No Longer Active Grace Nascimento RMA Active BACTROBAN 2 % CREAM Apply to affected area BID for up to 10 days MUPIROCIN CALCIUM 00843384844 No Longer Active Grace Nascimento RMA Active ZOFRAN 4 MG TABS 1 po q4hr PRN Nausea ONDANSETRON HCL 61804634123 Active Salina Han RMA Active KEFLEX 500 MG CAP 1 po BID x 7 days CEPHALEXIN 30958163278 No Longer Active Cherelle Avila APRN Active FLUVOXAMINE MALEATE 100 MG TABS Take one (1) tablet by mouth am, 1/2 at noon FLUVOXAMINE MALEATE 67130374517 No Longer Active Mima Erazo SUPERVISOR MAPPING Active CORICIDIN HBP CONGESTION/COUGH 10-200 MG ORAL CAPS Take as directed on box as needed for cold/flu symptoms DEXTROMETHORPHAN-GUAIFENESIN 57454893738 Active Cherelle Speaks SUPERVISOR MAPPING Active OMEGA-3 300 MG ORAL CAPS 4 caps by mouth daily OMEGA-3 FATTY ACIDS 17114844585 Active Mima Erazo SUPERVISOR MAPPING Active FLUVOXAMINE MALEATE 100 MG ORAL TABS Take 1/2 tab at noon FLUVOXAMINE MALEATE 72116673988 No Longer Active Cherelle Speaks SUPERVISOR MAPPING Active [facility] LUBRICANT EYE DROPS 0.4-0.3 % OPHTH SOLN POLYETHYL GLYCOL-PROPYL GLYCOL 85903588575 Active Mima Erazo SUPERVISOR MAPPING Active CLONAZEPAM 1 MG TABS 1/2 pill by mouth three times daily CLONAZEPAM 26211873711 Active Mason Loredo MD Active MIRALAX POWD 17g by mouth daily, for constipation POLYETHYLENE GLYCOL 3350 95023657505 Active Alina Castaneda MD PhD Active HYDROCODONE-ACETAMINOPHEN 5-325 MG TABS 2 tabs by mouth three times daily for pain HYDROCODONE-ACETAMINOPHEN 30072735465 Active Mima Erazo SUPERVISOR MAPPING Active HUMALOG KWIKPEN 100 UNIT/ML SC SOPN 20 units with breakfast, 10 units with lunch, 10 units with dinner, for diabetes INSULIN LISPRO (HUMAN ) 56025849836 Active Alina Castaneda MD PhD Active LATUDA 120 MG ORAL TABS 1 pill by mouth nightly LURASIDONE HCL 81818299175 Active Alina Castaneda MD PhD Active TRUETEST TEST STRP check blood sugars 3x/day GLUCOSE BLOOD 01544454652 Active Marvel Charles ENGRAVER [employer] Active ACCU-CHEK ROSA UZMA Use device to check blood sugars BLOOD GLUCOSE MONITORING SUPPL 35557683036 No Longer Active Marvel Charles ENGRAVER [employer] Active ACCU-CHEK ROSA INVITR STRP use strips with device to check blood sugars 3 times daily GLUCOSE BLOOD 33652105684 No Longer Active Marvel MARROQUIN Active VERAPAMIL HCL ER 180 MG ORAL CR-TABS 1 pill by mouth twice daily, for migraine prevention VERAPAMIL HCL 56812821173 Active CRYSTAL Rodrigues Active CYCLOBENZAPRINE HCL 10 MG TABS 1 tablet by mouth three times daily, scheduled CYCLOBENZAPRINE HCL 21990213069 No Longer Active Alina Castaneda MD PhD Active HUMALOG 100 UNIT/ML SOLN Take 20 units with breakfast, 10u with lunch and suppetr. INSULIN LISPRO (HUMAN) 50886297621 No Longer Active Alina Castaneda MD PhD Active TRUETEST TEST STRP check sugars 4x/day GLUCOSE BLOOD 45421785144 No Longer Active Alina Castaneda MD PhD Active MORPHINE SULFATE 30 MG TABS 1 pill by mouth twice daily, for pain MORPHINE SULFATE 63886649158 Active Mason Loredo MD Active ACYCLOVIR 400 MG ORAL TABS 1 pill three times daily x 5 days, for cold sore outbreak ACYCLOVIR 31466626874 No Longer Active Alina Castaneda MD PhD Active PENICILLIN V POTASSIUM 500 MG TABS 1 pill by mouth three times daily PENICILLIN V POTASSIUM 88950481810 No Longer Active Alina Castaneda MD PhD Active UROXATRAL 10 MG SN39K-SNG Take 1 tablet by mouth daily ALFUZOSIN HCL 35045947336 No Longer Active Alina Castaneda MD PhD Active THIOTHIXENE 5 MG CAPS by mouth twice a day THIOTHIXENE 92734610753 No Longer Active Alina Castaneda MD PhD Active ZYPREXA 7.5 MG TABS 1 at HS OLANZAPINE 50138011489 No Longer Active Alina Castaneda MD PhD Active BD INSULIN SYRINGE 28G X 1/2" 1 ML MISC 1 four times per day INSULIN SYRINGE-NEEDLE U-100 22464317677 Active Marvel MARROQUIN Active DETROL LA 4 MG XY13Q-HMC Take 1 tablet by mouth daily TOLTERODINE TARTRATE 33429280749 No Longer Active Alina Castaneda MD PhD Active TERESE CONTOUR TEST STRP monitor blood sugars 3x/day GLUCOSE BLOOD 70001417131 No Longer Active Alina Castaneda MD PhD Active EQL TRUETEST TEST STRP Test blood sugar TID GLUCOSE BLOOD 01645812673 No Longer Active Alina Castaneda MD PhD Active FLUTICASONE PROPIONATE 50 MCG/ACT SUSP 2 sprays each nostril qDay x 30 days FLUTICASONE PROPIONATE 04863463354 No Longer Active Alina Castaneda MD PhD Active IBUPROFEN 200 MG TABS 1 Q 6 hr. PRN IBUPROFEN 54267564671 No Longer Active Alina Castaneda MD PhD Active NIACIN ER 500 MG CR-TABS 4 qHS (for triglycerides) NIACIN 34724498473 No Longer Active Alina Castaneda MD PhD Active ALFUZOSIN HCL ER 10 MG [id number] 1 tablet daily ALFUZOSIN HCL 20388810268 Active CRYSTAL Rodrigues Active SAPHRIS 5 MG SUBL by mouth twice a day ASENAPINE MALEATE 93297947657 No Longer Active Marvel MARROQUIN Active ACETAMINOPHEN 500 MG TABS 2 Q 6 hr. PRN ACETAMINOPHEN 13751926280 No Longer Active Marvel MARROQUIN Active ORPHENADRINE CITRATE ER 100 MG [id number]-ZTA 1 every 12 hr. as needed ORPHENADRINE CITRATE 32245865702 No Longer Active Alina Castaneda MD PhD Active NIACIN CR 500 MG CR-TABS 2 qHS NIACIN 69454697043 No Longer Active Alina Castaneda MD PhD Active AMOXICILLIN 500 MG CAPS 2 po BID x 10 days AMOXICILLIN 11604448991 No Longer Active Alina Castaneda MD PhD Active HYDROCODONE-ACETAMINOPHEN 7.5-325 MG TABS 1 four times a day as needed for pain HYDROCODONE-ACETAMINOPHEN 92749511392 No Longer Active Alina Castaneda MD PhD Active DOXEPIN HCL 10 MG CAPS Take 1 tablet by mouth daily DOXEPIN HCL 84098554716 No Longer Active Salina Han A Active NAVANE 10 MG CAPS 1/2 tablet twice a day THIOTHIXENE No Longer Active Salina Han A Active CYCLOBENZAPRINE HCL 10 MG TABS 1/2 tablet by mouth every 8 hours as needed for muscle spasms CYCLOBENZAPRINE HCL 75571297503 No Longer Active Alina Castaneda MD PhD Active BACTROBAN 2 % CREAM apply to ear and nose twice daily MUPIROCIN CALCIUM 17230359945 No Longer Active Alina Castaneda MD PhD Active HYDROCODONE-ACETAMINOPHEN 5-325 MG TABS take one tablet by mouth every four hours as needed for pain HYDROCODONE-ACETAMINOPHEN 69117995306 No Longer Active Alina Castaneda MD PhD Active ZOLPIDEM TARTRATE 10 MG TABS take at bedtime ZOLPIDEM TARTRATE 26503086844 Active Alina Castaneda MD PhD Active ZYPREXA 5 MG TABS take one tablet by mouth every evening OLANZAPINE 34076475553 No Longer Active Alina Castaneda MD PhD Active ALBUTEROL SULFATE 0.083 % NEBU SOLN one vial per nebulizer TID and PRN cough/ soa ALBUTEROL SULFATE 35208824668 No Longer Active Alina Castaneda MD PhD Active GUAIFENESIN 600 MG PN16U-DVB 1 tablet by mouth twice daily if needed for cough GUAIFENESIN 84684993832 No Longer Active Marvel MARROQUIN Active AZITHROMYCIN 500 MG SOLR 1 po q day AZITHROMYCIN 86933885824 No Longer Active Alina Castaneda MD PhD Active PROMETHAZINE-CODEINE 6.25-10 MG/5ML SYRP 1 tsp po q 6 hours prn cough PROMETHAZINE-CODEINE 09454173321 No Longer Active Alina Castaneda MD PhD Active CEFDINIR 300 MG CAPS by mouth twice a day CEFDINIR 09396069128 No Longer Active Alina Castaneda MD PhD Active METFORMIN HCL 500 MG EZ01E-MBW Take 3 tablets by mouth everyday METFORMIN HCL 58867117271 No Longer Active Alina Castaneda MD PhD Active LEVEMIR 100 UNIT/ML SOLN 90 units SQ qHS INSULIN DETEMIR 60879968204 No Longer Active Marvel MARROQUIN Active TOPROL XL 100 MG LI73E-MFA 1 @ HS METOPROLOL SUCCINATE 88714487054 No Longer Active Marvel MARROQUIN Active ALLOPURINOL 300 MG TABS Take one by mouth daily ALLOPURINOL 21478029215 Active Mima Erazo SUPERVISOR MAPPING Active ZYPREXA 10 MG TABS Take one by mouth daily OLANZAPINE 46777150862 No Longer Active Alina Castaneda MD PhD Active NOVOLOG 100 UNIT/ML SOLN 40 units with every meal INSULIN ASPART 70065701588 No Longer Active Alina Castaneda MD PhD Active VERAPAMIL HCL CR 120 MG TAB CR 1 qPM VERAPAMIL HCL 22084218217 No Longer Active Salina ROJAS Active ZYPREXA 15 MG TABS Take 1 tablet by mouth daily OLANZAPINE 11866556898 No Longer Active Marvel MARROQUIN Active LISINOPRIL 20 MG TABS 1 BID LISINOPRIL 14152851057 Active Alina Castaneda MD PhD Active ALBUTEROL SULFATE (2.5 MG/3ML) 0.083% NEBU 1 neb tid and prn cough ALBUTEROL SULFATE 89919241319 No Longer Active Alina Castaneda MD PhD Active TRAVATAN Z 0.004 % SOLN 1 gtt each eye daily TRAVOPROST 51103416456 Active CRYSTAL Suarez Active LANTUS 100 UNIT/ML SOLN 60 units sq q hs INSULIN GLARGINE 27921803990 No Longer Active CRYSTAL Suarez Active ALBUTEROL SULFATE (2.5 MG/3ML) 0.083% NEBU 1 neb tid and prn cough ALBUTEROL SULFATE (2.5 MG/3ML) 0.083% NEBU 893124 ALBUTEROL SULFATE Inactive ZYPREXA 15 MG TABS Take 1 tablet by mouth daily ZYPREXA 15 MG TABS 933030 OLANZAPINE Inactive VERAPAMIL HCL CR 120 MG TAB CR 1 qPM VERAPAMIL HCL CR 120 MG TAB CR VERAPAMIL HCL Inactive ZYPREXA 10 MG TABS Take one by mouth daily ZYPREXA 10 MG TABS 355778 OLANZAPINE Inactive TOPROL XL 100 MG [id number] 1 @ HS TOPROL XL 100 MG [id number]-PKL METOPROLOL SUCCINATE Inactive LEVEMIR 100 UNIT/ML SOLN 90 units SQ qHS LEVEMIR 100 UNIT/ML SOLN INSULIN DETEMIR Inactive PROMETHAZINE-CODEINE 6.25-10 MG/5ML SYRP 1 tsp po q 6 hours prn cough PROMETHAZINE-CODEINE 6.25-10 MG/5ML SYRP 862684 PROMETHAZINE- CODEINE Inactive GUAIFENESIN 600 MG OE12Z-WZG 1 tablet by mouth twice daily if needed for cough GUAIFENESIN 600 MG IO36N-IWG GUAIFENESIN Inactive ALBUTEROL SULFATE 0.083 % NEBU SOLN one vial per nebulizer TID and PRN cough/ soa ALBUTEROL SULFATE 0.083 % NEBU SOLN 378858 ALBUTEROL SULFATE Inactive ZYPREXA 5 MG TABS take one tablet by mouth every evening ZYPREXA 5 MG TABS 053437 OLANZAPINE Inactive HYDROCODONE-ACETAMINOPHEN 5-325 MG TABS take one tablet by mouth every four hours as needed for pain HYDROCODONE-ACETAMINOPHEN 5-325 MG TABS 763752 HYDROCODONE-ACETAMINOPHEN Inactive BACTROBAN 2 % CREAM apply to ear and nose twice daily BACTROBAN 2 % CREAM 953025 MUPIROCIN CALCIUM Inactive CYCLOBENZAPRINE HCL 10 MG TABS 1/2 tablet by mouth every 8 hours as needed for muscle spasms CYCLOBENZAPRINE HCL 10 MG TABS 059418 CYCLOBENZAPRINE HCL Inactive NAVANE 10 MG CAPS 1/2 tablet twice a day NAVANE 10 MG CAPS THIOTHIXENE Inactive DOXEPIN HCL 10 MG CAPS Take 1 tablet by mouth daily DOXEPIN HCL 10 MG CAPS 2482775 DOXEPIN HCL Inactive HYDROCODONE-ACETAMINOPHEN 7.5-325 MG TABS 1 four times a day as needed for pain HYDROCODONE-ACETAMINOPHEN 7.5-325 MG TABS 468180 HYDROCODONE-ACETAMINOPHEN Inactive NIACIN CR 500 MG CR-TABS 2 qHS NIACIN CR 500 MG CR- TABS NIACIN Inactive ORPHENADRINE CITRATE ER 100 MG [id number]-VFT 1 every 12 hr. as needed ORPHENADRINE CITRATE ER 100 MG [id number] ORPHENADRINE CITRATE Inactive ACETAMINOPHEN 500 MG TABS 2 Q 6 hr. PRN ACETAMINOPHEN 500 MG TABS 294787 ACETAMINOPHEN Inactive SAPHRIS 5 MG SUBL by mouth twice a day SAPHRIS 5 MG SUBL ASENAPINE MALEATE Inactive NIACIN ER 500 MG CR-TABS 4 qHS (for triglycerides) NIACIN ER 500 MG CR-TABS NIACIN Inactive IBUPROFEN 200 MG TABS 1 Q 6 hr. PRN IBUPROFEN 200 MG TABS 960416 IBUPROFEN Inactive FLUTICASONE PROPIONATE 50 MCG/ACT SUSP 2 sprays each nostril qDay x 30 days FLUTICASONE PROPIONATE 50 MCG/ACT SUSP 664435 FLUTICASONE PROPIONATE Inactive EQL TRUETEST TEST STRP Test blood sugar TID EQL TRUETEST TEST STRP GLUCOSE BLOOD Inactive TERESE CONTOUR TEST STRP monitor blood sugars 3x/day TERESE CONTOUR TEST STRP GLUCOSE BLOOD Inactive DETROL LA 4 MG SF66A-BHB Take 1 tablet by mouth daily DETROL LA 4 MG [id number] TOLTERODINE TARTRATE Inactive ZYPREXA 7.5 MG TABS 1 at HS ZYPREXA 7.5 MG TABS 071886 OLANZAPINE Inactive THIOTHIXENE 5 MG CAPS by mouth twice a day THIOTHIXENE 5 MG CAPS 270468 THIOTHIXENE Inactive UROXATRAL 10 MG UW14Z-HTO Take 1 tablet by mouth daily UROXATRAL 10 MG UA49N-PIJ ALFUZOSIN HCL Inactive ACYCLOVIR 400 MG ORAL TABS 1 pill three times daily x 5 days, for cold sore outbreak ACYCLOVIR 400 MG ORAL TABS 702025 ACYCLOVIR Inactive TRUETEST TEST STRP check sugars 4x/day TRUETEST TEST STRP GLUCOSE BLOOD Inactive HUMALOG 100 UNIT/ML SOLN Take 20 units with breakfast, 10u with lunch and suppetr. HUMALOG 100 UNIT/ML SOLN INSULIN LISPRO ( HUMAN) Inactive CYCLOBENZAPRINE HCL 10 MG TABS 1 tablet by mouth three times daily, scheduled CYCLOBENZAPRINE HCL 10 MG TABS 744490 CYCLOBENZAPRINE HCL Inactive ACCU-CHEK ORSA INVITR STRP use strips with device to check blood sugars 3 times daily ACCU-CHEK ROSA INVITR STRP GLUCOSE BLOOD Inactive ACCU-CHEK ROSA UZMA Use device to check blood sugars ACCU-CHEK ROSA UZMA BLOOD GLUCOSE MONITORING SUPPL Inactive FLUVOXAMINE MALEATE 100 MG ORAL TABS Take 1/2 tab at noon FLUVOXAMINE MALEATE 100 MG ORAL TABS 166105 FLUVOXAMINE MALEATE Inactive FLUVOXAMINE MALEATE 100 MG TABS Take one (1) tablet by mouth am, 1/2 at noon FLUVOXAMINE MALEATE 100 MG TABS 933183 FLUVOXAMINE MALEATE Inactive BACTROBAN 2 % CREAM Apply to affected area BID for up to 10 days BACTROBAN 2 % CREAM 281262 MUPIROCIN CALCIUM Inactive NOVOFINE 32G X 6 MM MISC use one four times per day NOVOFINE 32G X 6 MM MISC INSULIN PEN NEEDLE Inactive TRAZODONE HCL 100 MG ORAL TABS 1 tab by mouth for sleep TRAZODONE HCL 100 MG ORAL TABS 933396 TRAZODONE HCL Inactive LOVAZA 1 GM CAPS 4 daily (for triglycerides) LOVAZA 1 GM CAPS 733270 OZWDI-6-MVCE ETHYL ESTERS Inactive METFORMIN HCL ER 500 MG XB85I-JFI Take three tablets by mouth everyday METFORMIN HCL ER 500 MG EP51I-TQO METFORMIN HCL Inactive METOPROLOL SUCCINATE 100 MG UK47V-PAL 1 by mouth daily for blood pressure METOPROLOL SUCCINATE 100 MG JO83H-EZW METOPROLOL SUCCINATE Inactive AMITIZA 24 MCG ORAL CAPS Take one capsule BID for constipation. AMITIZA 24 MCG ORAL CAPS LUBIPROSTONE Inactive TOLTERODINE TARTRATE 2 MG TABS 1 pill twice daily, for bladder TOLTERODINE TARTRATE 2 MG TABS 900143 TOLTERODINE TARTRATE Inactive COLACE 100 MG CAPS 1 pill by mouth twice daily, for constipation COLACE 100 MG CAPS 0236758 DOCUSATE SODIUM Inactive CEFDINIR 300 MG CAPS by mouth twice a day CEFDINIR 300 MG CAPS 129892 CEFDINIR Inactive AZITHROMYCIN 500 MG SOLR 1 po q day AZITHROMYCIN 500 MG SOLR 52935832664 AZITHROMYCIN Inactive AMOXICILLIN 500 MG CAPS 2 po BID x 10 days AMOXICILLIN 500 MG CAPS 123206 AMOXICILLIN Inactive PENICILLIN V POTASSIUM 500 MG TABS 1 pill by mouth three times daily PENICILLIN V POTASSIUM 500 MG TABS 749515 PENICILLIN V POTASSIUM Inactive KEFLEX 500 MG CAP 1 po BID x 7 days KEFLEX 500 MG CAP 035509 CEPHALEXIN Inactive Immunizations Vaccine Administration Date Value [...] Fluvirin, Fluarix, Agriflu(>=18 yo)) Fluzone (>3 yrs.) [[id number]] Influenza, seasonal, injectable pneumococcal immunization administered Pneumovax [...] Panel - Chemistry sodium, serum 137 mmol/L 921-973 5086/10/12 potassium, serum 4.8 mmol/L 3.5-5.2 chloride, serum 102 mmol/L 98-107 carbon dioxide, venous blood 27.6 mmol/L 21.0-32.0 blood glucose 168 mg/dL 65-110 calcium, serum 9.0 mg/dL 8.5-10.1 urea nitrogen, blood 15 mg/dL 7-18 creatinine, serum 1.04 mg/dL 0.55-1.30 sodium, serum 138 mmol/L 736-434 6051/11/11 potassium, serum 4.7 mmol/L 3.5-5.2 chloride, serum [...] % 11.6-14.8 platelet count 240 10^3/MM^3 10*3/mm3 782-974 9466/11/11 leukocyte count, blood 9.6 10^3/MM^3 10*3/mm3 4.6-10.2 [...] Acid - Chemistry cholesterol, serum 187 mg/dL 397-608 5126/06/14 triglyceride, serum, fasting 246 mg/dL 30-200 HDL [...] negative Encounters Code Encounter Date Provider Facility CPT-84517 Level 3 Est. Patient 16:27:51 CDT Mima Erazo [facility]-77922 Level 3 Est. Patient 14:39:00 MUSEUM TECHNICIAN Vanessa Hickey MD [facility]-00718 Level 2 Est. Patient 18:43:34 CDT Mima Erazo [facility] [place] CPT-42887 Level 3 Est. Patient 16:22:09 CDT Cherelle Avila [facility] [place] [facility] CPT-99749 Level 4 Est. Patient 17:55:14 CDT Mima Erazo [facility] [place] CPT-48184 Level 2 Est. Patient 17:13:21 CDT Alina Castaneda MD [facility]-18544 Level 3 Est. Patient 14:46:15 CDT Vanessa Hickey MD [facility]-70072 Level 3 Est. Patient 09:34:56 CDT Alina Castaneda MD [facility]19997 Level 3 Est. Patient 21:40:19 CDT Mima Erazo [facility] [place] CPT-56008 Level 3 Est. Patient 09:26:40 CDT Marvel Charles [facility]-33087 Level 3 Est. Patient 12:36:43 CDT Vanessa Hickey MD [facility]-85013 Level 3 Est. Patient 12:57:49 CDT Vanessa Hickey MD [facility]-61470 Level 3 Est. Patient 00:28:25 CDT Alina Castaneda MD [facility]91646 Level 2 Est. Patient 12:52:14 CDT Alina Castaneda MD [facility]62449 Level 3 Est. Patient 11:51:18 MUSEUM TECHNICIAN Alina Castaneda MD [facility]-20136 Level 3 Est. Patient 10:09:22 MUSEUM TECHNICIAN Alina Castaneda MD [facility]-53419 Level 3 Est. Patient 14:36:26 MUSEUM TECHNICIAN Marvel Charles [facility]-15543 Level 3 Est. Patient 13:34:47 MUSEUM TECHNICIAN Alina Catsaneda MD [facility]66922 Level 3 Est. Patient 19:52:08 MUSEUM TECHNICIAN Alina Castaneda MD [facility]65068 Level 3 Est. Patient 10:01:51 MUSEUM TECHNICIAN Marvel Charles [facility]-40800 Level 3 Est. Patient 21:54:06 CDT Vanessa Hickey MD [facility]-84984 Level 3 Est. Patient 08:54:46 CDT Alina Castaneda MD [facility]41263 Level 3 Est. Patient 09:32:11 CDT Marvel Charles [facility]-90594 Level 3 Est. Patient 12:02:49 CDT Alina Castaneda MD [facility]87216 Level 3 Est. Patient 19:17:33 CDT Alina Castaneda MD [facility]-28839 Level 3 Est. Patient 13:19:10 CDT Marvel Charles [facility]-63073 Level 3 Est. Patient 08:20:05 CDT Alina Castaneda MD [facility]06489 Level 3 Est. Patient 15:17:18 CDT Alina Castaneda MD [facility]23520 Level 3 Est. Patient 14:25:36 MUSEUM TECHNICIAN Marvel Charles [facility]21035 Level 3 Est. Patient 10:09:15 MUSEUM TECHNICIAN Marvel Charles [facility] CPT-88832 Level 3 Est. Patient 21:28:43 CDT Alina Castaneda MD [facility] CPT-14016 Level 3 Est. Patient 15:20:11 CDT Marvel Thurstonestela [facility] CPT-95186 Level 4 Est. Patient 19:08:12 CDT Alina Castaneda MD [facility] CPT-46197 Level 3 Est. Patient 15:06:39 CDT Marvel Gurdeepajayestela [facility] CPT-25750 Level 4 Est. Patient 17:48:15 CDT Alina Castaneda MD [facility] CPT-18833 Level 3 Est. Patient 14:53:49 CDT Alina Castaneda MD [facility] CPT-33532 Level 3 Est. Patient 09:35:16 CDT Alina Castaneda MD [facility] CPT-00397 Level 3 Est. Patient 12:23:22 CDT Alina Castaneda MD [facility] CPT-82851 Level 3 Est. Patient 16:19:15 CDT Alina Castaneda MD [facility] CPT-24145 Level 3 Est. Patient 21:39:56 MUSEUM TECHNICIAN Alina Castaneda MD [facility] CPT-68149 Level 4 Est. Patient 14:12:56 MUSEUM TECHNICIAN Alina Castaneda MD [facility]-57350 Level 2 Est. Patient 15:34:57 MUSEUM TECHNICIAN Alina Castaneda MD [facility] CPT-46846 Level 3 Est. Patient 12:17:04 MUSEUM TECHNICIAN Alina Castaneda MD [facility]-02439 Level 3 Est. Patient 09:18:18 MUSEUM TECHNICIAN Marvel Araceli [facility]-60498 Level 2 Est. Patient 21:50:24 CDT Alina Castaneda MD [facility]46162 Level 3 Est. Patient 09:17:28 CDT Brooksjohn Charles [facility]-70563 Level 4 Est. Patient 18:54:02 CDT Alina Castaneda MD [facility]84020 Level 3 Est. Patient 10:47:10 CDT Alina Castaneda MD [facility]80795 Level 3 Est. Patient 09:22:20 CDT Brookslashondanivia Araceli [facility]-36876 Level 3 Est. Patient 16:39:43 CDT Brooksjohn Charles [facility]-22747 Level 3 Est. Patient 16:05:16 CDT Alina Castaneda MD [facility]81850 Level 3 Est. Patient 00:29:15 CDT Alina Castaneda MD [facility]97327 Level 3 Est. Patient 10:49:22 MUSEUM TECHNICIAN Brooksjohn [facility]-[id number] Level 3 Est. Patient 21:30:19 MUSEUM TECHNICIAN Alina Castaneda MD [facility]-[address]326 Level 4 Est. Patient 17:04:11 MUSEUM TECHNICIAN Marvel Charles [facility] Level 3 Est. Patient 15:34:11 MUSEUM TECHNICIAN Marvel [facility] [place]-[address] Level 2 Est. Patient 12:51:58 MUSEUM TECHNICIAN Alina Castaneda MD PhD [facility] CPT-22179 Level 3 Est. Patient 13:20:01 MUSEUM TECHNICIAN Alina Castaneda MD PhD [facility] CPT-10937 Level 3 Est. 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
--- OUTSIDE RECORDS SUMMARY | 2018-07-02 19:05 | XMS REPORT | Clinical Summary ---
Author Author Admin, TERELL Organization [facility] Address Unknown Phone Unavailable Allergies, Adverse Reactions, 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 Erazo POWDER EXPERT Benign paroxysmal positional vertigo Vertigo, benign paroxysmal position 386.11 Inactive Mima Erazo POWDER EXPERT Benign paroxysmal positional vertigo High-risk sexual behavior V69.2 Active Alina Castaneda MD PhD High-risk sexual behavior Erectile dysfunction 302.72 Active Alina Castaneda MD PhD Psychosexual dysfunction with inhibited sexual excitement Constipation 564.00 Active Alina Castaneda MD PhD Constipation, unspecified Skin lesion 709.9 Active Alina Castaneda MD PhD Unspecified disorder of skin and subcutaneous tissue Malaise and fatigue 780.79 Active Cherelle Speaks POWDER EXPERT Other malaise and fatigue Diarrhea 787.91 Active Cherelle Speaks POWDER EXPERT Diarrhea PHARYNGITIS 462 Active Cherelle Speaks POWDER EXPERT Acute pharyngitis Colitis 558.9 Active Mima Erazo POWDER EXPERT Other and unspecified noninfectious gastroenteritis and colitis WOUND, OPEN, NOSE ICD-873.20 Inactive Alina Castaneda MD PhD DIABETES, TYPE 2 ICD-250.00 Inactive Alina Castaneda MD PhD HYPERTENSION ICD-401.9 Inactive Alina Castaneda MD PhD URI ICD-465.9 Inactive Alina Castaneda MD PhD CHEST PAIN ICD-786.50 Inactive Alina Castaneda MD PhD FH STROKE ICD-V17.1 Inactive Marvel Charles MEAT SOAKER FATIGUE ICD-780.79 Inactive Alina Castaneda MD PhD [...] SQ each evening, for diabetes INSULIN DETEMIR 81745908128 Active Salina ROJAS Active TRUEPLUS LANCETS 30G MISC 3 a day LANCETS 46518374564 Active Marvel MENDOZAP Active TOLTERODINE TARTRATE 2 MG TABS 1 pill twice daily, for bladder TOLTERODINE TARTRATE 49282900322 No Longer Active Vanessa Hickey MD Active AMITIZA 24 MCG ORAL CAPS Take one capsule BID for constipation. LUBIPROSTONE 35637897316 No Longer Active Vanessa Hickey MD Active LOMOTIL 2.5-0.025 MG ORAL TABS take 1-2 tabs PO after each stool, no more than 8 in 24 hours DIPHENOXYLATE-ATROPINE 45451728129 Active Grace ROJAS Active FLUVOXAMINE MALEATE 100 MG ORAL TABS take one tab every AM et HS, and take 1/ 2 tab at noon FLUVOXAMINE MALEATE 93612666832 Active Grace ROJAS Active METOPROLOL SUCCINATE 100 MG [id number]-SIR 1 by mouth daily for blood pressure METOPROLOL SUCCINATE 73246406949 No Longer Active Grace Nelsonb RMA Active METFORMIN HCL ER 500 MG [id number]-WBU Take three tablets by mouth everyday METFORMIN HCL 71682288436 No Longer Active Grace Azam RMA Active LOVAZA 1 GM CAPS 4 daily (for triglycerides) OMEGA-3- ACID ETHYL ESTERS 26516105946 No Longer Active Grace Azam RMA Active TRAZODONE HCL 100 MG ORAL TABS 1 tab by mouth for sleep TRAZODONE HCL 48682795221 No Longer Active Grace Azam RMA Active NOVOFINE 32G X 6 MM MISC use one four times per day INSULIN PEN NEEDLE 51399897327 No Longer Active Grace Azam RMA Active BACTROBAN 2 % CREAM Apply to affected area BID for up to 10 days MUPIROCIN CALCIUM 09664664164 No Longer Active Grace Azam RMA Active ZOFRAN 4 MG TABS 1 po q4hr PRN Nausea ONDANSETRON HCL 34024977883 Active Salina Han RMA Active KEFLEX 500 MG CAP 1 po BID x 7 days CEPHALEXIN 36627434654 No Longer Active Cherelle Speaks POWDER EXPERT Active FLUVOXAMINE MALEATE 100 MG TABS Take one (1) tablet by mouth am, 1/2 at noon FLUVOXAMINE MALEATE 75960187381 No Longer Active Mima Erazo POWDER EXPERT Active CORICIDIN HBP CONGESTION/COUGH 10-200 MG ORAL CAPS Take as directed on box as needed for cold/flu symptoms DEXTROMETHORPHAN-GUAIFENESIN 14008705613 Active Cherelle Speaks POWDER EXPERT Active OMEGA-3 300 MG ORAL CAPS 4 caps by mouth daily OMEGA-3 FATTY ACIDS 58775825415 Active Cherelle Speaks POWDER EXPERT Active FLUVOXAMINE MALEATE 100 MG ORAL TABS Take 1/2 tab at noon FLUVOXAMINE MALEATE 78245060381 No Longer Active Cherelle Avila POWDER EXPERT Active [facility] LUBRICANT EYE DROPS 0.4-0.3 % OPHTH SOLN POLYETHYL GLYCOL-PROPYL GLYCOL 44146687073 Active Mima Erazo POWDER EXPERT Active CLONAZEPAM 1 MG TABS 1/2 pill by mouth three times daily CLONAZEPAM 41559139866 Active Alina Castaneda MD PhD Active MIRALAX POWD 17g by mouth daily, for constipation POLYETHYLENE GLYCOL 3350 36727785612 Active Alina Castaneda MD PhD Active HYDROCODONE-ACETAMINOPHEN 5-325 MG TABS 2 tabs by mouth three times daily for pain HYDROCODONE-ACETAMINOPHEN 22224362564 Active Mima Erazo POWDER EXPERT Active HUMALOG KWIKPEN 100 UNIT/ML SC SOPN 20 units with breakfast, 10 units with lunch, 10 units with dinner, for diabetes INSULIN LISPRO (HUMAN ) 43587927152 Active Alina Castaneda MD PhD Active LATUDA 120 MG ORAL TABS 1 pill by mouth nightly LURASIDONE HCL 85268384247 Active Alina Castaneda MD PhD Active COLACE 100 MG CAPS 1 pill by mouth twice daily, for constipation DOCUSATE SODIUM 87851770128 Active Alina Castaneda MD PhD Active TRUETEST TEST STRP check blood sugars 3x/day GLUCOSE BLOOD 10895574846 Active Marvel Thurstonari MEAT SOAKER Active ACCU-CHEK ROSA UZMA Use device to check blood sugars BLOOD GLUCOSE MONITORING SUPPL 22002923488 No Longer Active Marvel Mackenzieglari LOPEZ Active ACCU-CHEK ROSA INVITR STRP use strips with device to check blood sugars 3 times daily GLUCOSE BLOOD 41688371564 No Longer Active Marvel MENDOZAP Active VERAPAMIL HCL ER 180 MG ORAL CR-TABS 1 pill by mouth twice daily, for migraine prevention VERAPAMIL HCL 28336789561 Active Alina Castaneda MD PhD Active CYCLOBENZAPRINE HCL 10 MG TABS 1 tablet by mouth three times daily, scheduled CYCLOBENZAPRINE HCL 69548930041 No Longer Active Alina Castaneda MD PhD Active HUMALOG 100 UNIT/ML SOLN Take 20 units with breakfast, 10u with lunch and suppetr. INSULIN LISPRO (HUMAN) 11638923784 No Longer Active Alina Castaneda MD PhD Active TRUETEST TEST STRP check sugars 4x/day GLUCOSE BLOOD 87320507666 No Longer Active Alina Castaneda MD PhD Active MORPHINE SULFATE 30 MG TABS 1 pill by mouth twice daily, for pain MORPHINE SULFATE 50801793054 Active Mima Erazo POWDER EXPERT Active ACYCLOVIR 400 MG ORAL TABS 1 pill three times daily x 5 days, for cold sore outbreak ACYCLOVIR 23006955384 No Longer Active Alina Castaneda MD PhD Active PENICILLIN V POTASSIUM 500 MG TABS 1 pill by mouth three times daily PENICILLIN V POTASSIUM 64265307713 No Longer Active Alina Castaneda MD PhD Active UROXATRAL 10 MG OB68R-RII Take 1 tablet by mouth daily ALFUZOSIN HCL 63542510868 No Longer Active Alina Castaneda MD PhD Active THIOTHIXENE 5 MG CAPS by mouth twice a day THIOTHIXENE 34936722952 No Longer Active Alina Castaneda MD PhD Active ZYPREXA 7.5 MG TABS 1 at HS OLANZAPINE 86731162215 No Longer Active Alina Castaneda MD PhD Active BD INSULIN SYRINGE 28G X 1/2" 1 ML MISC 1 four times per day INSULIN SYRINGE-NEEDLE U-[address] [facility] Gurdeepglestela [facility] Active DETROL LA 4 MG [id number]-HIU Take 1 tablet by mouth daily TOLTERODINE TARTRATE 88502887755 No Longer Active Alina Castaneda MD PhD Active TERESE CONTOUR TEST STRP monitor blood sugars 3x/day GLUCOSE BLOOD 50514366005 No Longer Active Alina Castaneda MD PhD Active EQL TRUETEST TEST STRP Test blood sugar TID GLUCOSE BLOOD 28413521757 No Longer Active Alina Castaneda MD PhD Active FLUTICASONE PROPIONATE 50 MCG/ACT SUSP 2 sprays each nostril qDay x 30 days FLUTICASONE PROPIONATE 60682701909 No Longer Active Alina Castaneda MD PhD Active IBUPROFEN 200 MG TABS 1 Q 6 hr. PRN IBUPROFEN 75986049486 No Longer Active Alina Castaneda MD PhD Active NIACIN ER 500 MG CR-TABS 4 qHS (for triglycerides) NIACIN 44356537478 No Longer Active Alina Castaneda MD PhD Active ALFUZOSIN HCL ER 10 MG DH12U-CSP 1 tablet daily ALFUZOSIN HCL 50872215259 Active Vanessa Hickey MD Active SAPHRIS 5 MG SUBL by mouth twice a day ASENAPINE MALEATE 83808275129 No Longer Active Maliheh Ziglari MEAT SOAKER Active ACETAMINOPHEN 500 MG TABS 2 Q 6 hr. PRN ACETAMINOPHEN 54779359896 No Longer Active Maliheh Ziglari MEAT SOAKER Active ORPHENADRINE CITRATE ER 100 MG GV21M-DVJ 1 every 12 hr. as needed ORPHENADRINE CITRATE 72983307226 No Longer Active Alina Castaneda MD PhD Active NIACIN CR 500 MG CR-TABS 2 qHS NIACIN 61912490636 No Longer Active Alina Castaneda MD PhD Active AMOXICILLIN 500 MG CAPS 2 po BID x 10 days AMOXICILLIN 59308773061 No Longer Active Alina Castaneda MD PhD Active HYDROCODONE-ACETAMINOPHEN 7.5-325 MG TABS 1 four times a day as needed for pain HYDROCODONE-ACETAMINOPHEN 38859562697 No Longer Active Alina Castaneda MD PhD Active DOXEPIN HCL 10 MG CAPS Take 1 tablet by mouth daily DOXEPIN HCL 10661433100 No Longer Active Salina ROJAS Active NAVANE 10 MG CAPS 1/2 tablet twice a day THIOTHIXENE No Longer Active Salina ROBBINSA Active CYCLOBENZAPRINE HCL 10 MG TABS 1/2 tablet by mouth every 8 hours as needed for muscle spasms CYCLOBENZAPRINE HCL 55221838020 No Longer Active Alina Castaneda MD PhD Active BACTROBAN 2 % CREAM apply to ear and nose twice daily MUPIROCIN CALCIUM 00823861305 No Longer Active Alina Castaneda MD PhD Active HYDROCODONE-ACETAMINOPHEN 5-325 MG TABS take one tablet by mouth every four hours as needed for pain HYDROCODONE-ACETAMINOPHEN 12580261195 No Longer Active Alina Castaneda MD PhD Active ZOLPIDEM TARTRATE 10 MG TABS take at bedtime ZOLPIDEM TARTRATE 24582236310 Active Alina Castaneda MD PhD Active ZYPREXA 5 MG TABS take one tablet by mouth every evening OLANZAPINE 55036822524 No Longer Active Alina Castaneda MD PhD Active ALBUTEROL SULFATE 0.083 % NEBU SOLN one vial per nebulizer TID and PRN cough/ soa ALBUTEROL SULFATE 44391414099 No Longer Active Alina Castaneda MD PhD Active GUAIFENESIN 600 MG [id number]-LSN 1 tablet by mouth twice daily if needed for cough GUAIFENESIN 70632733107 No Longer Active Marvel MARROQUIN Active AZITHROMYCIN 500 MG SOLR 1 po q day AZITHROMYCIN 65148899168 No Longer Active Alina Castaneda MD PhD Active PROMETHAZINE-CODEINE 6.25-10 MG/5ML SYRP 1 tsp po q 6 hours prn cough PROMETHAZINE-CODEINE 83986487093 No Longer Active Alina Castaneda MD PhD Active CEFDINIR 300 MG CAPS by mouth twice a day CEFDINIR 04471742365 No Longer Active Alina Castaneda MD PhD Active METFORMIN HCL 500 MG [id number]-KWT Take 3 tablets by mouth everyday METFORMIN HCL 41087405479 No Longer Active Alina Castaneda MD PhD Active LEVEMIR 100 UNIT/ML SOLN 90 units SQ qHS INSULIN DETEMIR 67007350592 No Longer Active Marvel MARROQUIN Active TOPROL XL 100 MG IR59F-UHW 1 @ HS METOPROLOL SUCCINATE 80392304587 No Longer Active Marvel MARROQUIN Active ALLOPURINOL 300 MG TABS Take one by mouth daily ALLOPURINOL 96127119712 Active Alina Castaneda MD PhD Active ZYPREXA 10 MG TABS Take one by mouth daily OLANZAPINE 93025503647 No Longer Active Alina Castaneda MD PhD Active NOVOLOG 100 UNIT/ML SOLN 40 units with every meal INSULIN ASPART 63632532467 No Longer Active Alina Castaneda MD PhD Active VERAPAMIL HCL CR 120 MG TAB CR 1 qPM VERAPAMIL HCL 85347785991 No Longer Active Salina ROJAS Active ZYPREXA 15 MG TABS Take 1 tablet by mouth daily OLANZAPINE 22436093531 No Longer Active Marvel MARROQUIN Active LISINOPRIL 20 MG TABS 1 BID LISINOPRIL 69077596384 Active Alina Castaneda MD PhD Active ALBUTEROL SULFATE (2.5 MG/3ML) 0.083% NEBU 1 neb tid and prn cough ALBUTEROL SULFATE 67057650481 No Longer Active Alina Castaneda MD PhD Active TRAVATAN Z 0.004 % SOLN 1 gtt each eye daily TRAVOPROST 87600816291 Active CRYSTAL Suarez Active LANTUS 100 UNIT/ML SOLN 60 units sq q hs INSULIN GLARGINE 65605518905 No Longer Active CRYSTAL Suarez Active ALBUTEROL SULFATE (2.5 MG/3ML) 0.083% NEBU 1 neb tid and prn cough ALBUTEROL SULFATE (2.5 MG/3ML) 0.083% NEBU 411940 ALBUTEROL SULFATE Inactive ZYPREXA 15 MG TABS Take 1 tablet by mouth daily ZYPREXA 15 MG TABS 443022 OLANZAPINE Inactive VERAPAMIL HCL CR 120 MG TAB CR 1 qPM VERAPAMIL HCL CR 120 MG TAB CR VERAPAMIL HCL Inactive ZYPREXA 10 MG TABS Take one by mouth daily ZYPREXA 10 MG TABS 498234 OLANZAPINE Inactive TOPROL XL 100 MG [id number] 1 @ HS TOPROL XL 100 MG [id number]-RXZ METOPROLOL SUCCINATE Inactive LEVEMIR 100 UNIT/ML SOLN 90 units SQ qHS LEVEMIR 100 UNIT/ML SOLN INSULIN DETEMIR Inactive PROMETHAZINE-CODEINE 6.25-10 MG/5ML SYRP 1 tsp po q 6 hours prn cough PROMETHAZINE-CODEINE 6.25-10 MG/5ML SYRP 098517 PROMETHAZINE- CODEINE Inactive GUAIFENESIN 600 MG KZ99L-PXO 1 tablet by mouth twice daily if needed for cough GUAIFENESIN 600 MG [id number]-VRP GUAIFENESIN Inactive ALBUTEROL SULFATE 0.083 % NEBU SOLN one vial per nebulizer TID and PRN cough/ soa ALBUTEROL SULFATE 0.083 % NEBU SOLN 370895 ALBUTEROL SULFATE Inactive ZYPREXA 5 MG TABS take one tablet by mouth every evening ZYPREXA 5 MG TABS 237733 OLANZAPINE Inactive HYDROCODONE-ACETAMINOPHEN 5-325 MG TABS take one tablet by mouth every four hours as needed for pain HYDROCODONE-ACETAMINOPHEN 5-325 MG TABS 622387 HYDROCODONE-ACETAMINOPHEN Inactive BACTROBAN 2 % CREAM apply to ear and nose twice daily BACTROBAN 2 % CREAM 459319 MUPIROCIN CALCIUM Inactive CYCLOBENZAPRINE HCL 10 MG TABS 1/2 tablet by mouth every 8 hours as needed for muscle spasms CYCLOBENZAPRINE HCL 10 MG TABS 622509 CYCLOBENZAPRINE HCL Inactive NAVANE 10 MG CAPS 1/2 tablet twice a day NAVANE 10 MG CAPS THIOTHIXENE Inactive DOXEPIN HCL 10 MG CAPS Take 1 tablet by mouth daily DOXEPIN HCL 10 MG CAPS 5038136 DOXEPIN HCL Inactive HYDROCODONE-ACETAMINOPHEN 7.5-325 MG TABS 1 four times a day as needed for pain HYDROCODONE-ACETAMINOPHEN 7.5-325 MG TABS 363996 HYDROCODONE-ACETAMINOPHEN Inactive NIACIN CR 500 MG CR-TABS 2 qHS NIACIN CR 500 MG CR- TABS NIACIN Inactive ORPHENADRINE CITRATE ER 100 MG [id number]-WYW 1 every 12 hr. as needed ORPHENADRINE CITRATE ER 100 MG GF05M-GEW ORPHENADRINE CITRATE Inactive ACETAMINOPHEN 500 MG TABS 2 Q 6 hr. PRN ACETAMINOPHEN 500 MG TABS 926281 ACETAMINOPHEN Inactive SAPHRIS 5 MG SUBL by mouth twice a day SAPHRIS 5 MG SUBL ASENAPINE MALEATE Inactive NIACIN ER 500 MG CR-TABS 4 qHS (for triglycerides) NIACIN ER 500 MG CR-TABS NIACIN Inactive IBUPROFEN 200 MG TABS 1 Q 6 hr. PRN IBUPROFEN 200 MG TABS 419439 IBUPROFEN Inactive FLUTICASONE PROPIONATE 50 MCG/ACT SUSP 2 sprays each nostril qDay x 30 days FLUTICASONE PROPIONATE 50 MCG/ACT SUSP 420581 FLUTICASONE PROPIONATE Inactive EQL TRUETEST TEST STRP Test blood sugar TID EQL TRUETEST TEST STRP GLUCOSE BLOOD Inactive TERESE CONTOUR TEST STRP monitor blood sugars 3x/day TERESE CONTOUR TEST STRP GLUCOSE BLOOD Inactive DETROL LA 4 MG [id number] Take 1 tablet by mouth daily DETROL LA 4 MG [id number]-ZAT TOLTERODINE TARTRATE Inactive ZYPREXA 7.5 MG TABS 1 at HS ZYPREXA 7.5 MG TABS 231549 OLANZAPINE Inactive THIOTHIXENE 5 MG CAPS by mouth twice a day THIOTHIXENE 5 MG CAPS 549540 THIOTHIXENE Inactive UROXATRAL 10 MG DL78R-GOG Take 1 tablet by mouth daily UROXATRAL 10 MG JD52Z-VGT ALFUZOSIN HCL Inactive ACYCLOVIR 400 MG ORAL TABS 1 pill three times daily x 5 days, for cold sore outbreak ACYCLOVIR 400 MG ORAL TABS 839679 ACYCLOVIR Inactive TRUETEST TEST STRP check sugars 4x/day TRUETEST TEST STRP GLUCOSE BLOOD Inactive HUMALOG 100 UNIT/ML SOLN Take 20 units with breakfast, 10u with lunch and suppetr. HUMALOG 100 UNIT/ML SOLN INSULIN LISPRO ( HUMAN) Inactive CYCLOBENZAPRINE HCL 10 MG TABS 1 tablet by mouth three times daily, scheduled CYCLOBENZAPRINE HCL 10 MG TABS 498974 CYCLOBENZAPRINE HCL Inactive ACCU-CHEK ROSA INVITR STRP use strips with device to check blood sugars 3 times daily ACCU-CHEK ROSA INVITR STRP GLUCOSE BLOOD Inactive ACCU-CHEK ROSA UZMA Use device to check blood sugars ACCU-CHEK ROSA UZMA BLOOD GLUCOSE MONITORING SUPPL Inactive FLUVOXAMINE MALEATE 100 MG ORAL TABS Take 1/2 tab at noon FLUVOXAMINE MALEATE 100 MG ORAL TABS 736598 FLUVOXAMINE MALEATE Inactive FLUVOXAMINE MALEATE 100 MG TABS Take one (1) tablet by mouth am, 1/2 at noon FLUVOXAMINE MALEATE 100 MG TABS 514045 FLUVOXAMINE MALEATE Inactive BACTROBAN 2 % CREAM Apply to affected area BID for up to 10 days BACTROBAN 2 % CREAM 650531 MUPIROCIN CALCIUM Inactive NOVOFINE 32G X 6 MM MISC use one four times per day NOVOFINE 32G X 6 MM MISC INSULIN PEN NEEDLE Inactive TRAZODONE HCL 100 MG ORAL TABS 1 tab by mouth for sleep TRAZODONE HCL 100 MG ORAL TABS 346514 TRAZODONE HCL Inactive LOVAZA 1 GM CAPS 4 daily (for triglycerides) LOVAZA 1 GM CAPS 276135 BILFB-0-CWCA ETHYL ESTERS Inactive METFORMIN HCL ER 500 MG RA25L-BTY Take three tablets by mouth everyday METFORMIN HCL ER 500 MG TV14C-USY METFORMIN HCL Inactive METOPROLOL SUCCINATE 100 MG US63L-UEX 1 by mouth daily for blood pressure METOPROLOL SUCCINATE 100 MG PC69W-SUN METOPROLOL SUCCINATE Inactive AMITIZA 24 MCG ORAL CAPS Take one capsule BID for constipation. AMITIZA 24 MCG ORAL CAPS LUBIPROSTONE Inactive TOLTERODINE TARTRATE 2 MG TABS 1 pill twice daily, for bladder TOLTERODINE TARTRATE 2 MG TABS 156376 TOLTERODINE TARTRATE Inactive CEFDINIR 300 MG CAPS by mouth twice a day CEFDINIR 300 MG CAPS 731245 CEFDINIR Inactive AZITHROMYCIN 500 MG SOLR 1 po q day AZITHROMYCIN 500 MG SOLR 86778990672 AZITHROMYCIN Inactive AMOXICILLIN 500 MG CAPS 2 po BID x 10 days AMOXICILLIN 500 MG CAPS 364849 AMOXICILLIN Inactive PENICILLIN V POTASSIUM 500 MG TABS 1 pill by mouth three times daily PENICILLIN V POTASSIUM 500 MG TABS 768217 PENICILLIN V POTASSIUM Inactive KEFLEX 500 MG CAP 1 po BID x 7 days KEFLEX 500 MG CAP 326511 CEPHALEXIN Inactive Immunizations Vaccine Administration Date Value [...] Fluvirin, Fluarix, Agriflu(>=18 yo)) Fluzone (>3 yrs.) [[id number]] Influenza, seasonal, injectable pneumococcal immunization administered Pneumovax [...] MICROALBUMIN - Chemistry sodium, serum 137 mmol/L 925-981 1788/05/19 potassium, serum 5.2 mmol/L 3.5-5.2 chloride, serum [...] Panel - Chemistry sodium, serum 137 mmol/L 292-209 9791/10/12 potassium, serum 4.8 mmol/L 3.5-5.2 chloride, serum 102 mmol/L 98-107 carbon dioxide, venous blood 27.6 mmol/L 21.0-32.0 blood glucose 168 mg/dL 65-110 calcium, serum 9.0 mg/dL 8.5-10.1 urea nitrogen, blood 15 mg/dL 7-18 creatinine, serum 1.04 mg/dL 0.55-1.30 sodium, serum 138 mmol/L 729-580 1786/11/11 potassium, serum 4.7 mmol/L 3.5-5.2 chloride, serum [...] % 11.6-14.8 platelet count 252 10^3/MM^3 10*3/mm3 792-185 0914/10/12 leukocyte count, blood 5.8 10^3/MM^3 10*3/mm3 4.6-10.2 [...] 240 10^3/MM^3 10*3/mm3 142-424 Lab Report: Chlamydia/GC APTIMA/85797, HIV-1/2 Agn/Dominga/79064, RPR (DX) W ... - Chemistry hepatitis B surface antigen NON-REACTIVE NON-REACTIVE Lab Report: Chlamydia/GC APTIMA/85619, HIV-1/2 Agn/Dominga/26972, RPR (DX) W ... - Lab chlamydia DNA probe NOT DETECTED NOT DETECTED Lab Report: Chlamydia/GC APTIMA/87628, HIV-1/2 Agn/Dominga/66712, RPR (DX) W ... - Microbiology Neisseria gonorrhoeae DNA probe NOT DETECTED NOT DETECTED Lab Report: Chlamydia/GC APTIMA/03007, HIV-1/2 Agn/Dominga/93869, RPR (DX) W ... - Serology rapid plasma reagin antibody titer NON-REACTIVE NON-REACTIVE Lab Report: HGBA1C - Chemistry hemoglobin A1C, blood, as % of total hemoglobin 6.1 % 4.3-6.0 hemoglobin A1C, blood, as % of total hemoglobin 6.3 % 4.3-6.0 Lab Report: Lipid Panel, HEPATIC PANEL, MICROALBUMIN, CBC - Chemistry cholesterol, serum 131 mg/dL 219-947 6003/06/03 triglyceride, serum, fasting 383 mg/dL 30-200 HDL [...] 4.7 mg/dL 2.6-7.2 cholesterol, serum 142 mg/dL 996-417 9983/06/26 triglyceride, serum, fasting 272 mg/dL 30-200 HDL [...] negative Encounters Code Encounter Date Provider Facility CPT-64041 Level 3 Est. Patient 14:39:00 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 Vanessa Hickey MD [facility] CPT-70425 Level 2 Est. Patient 18:43:34 CDT Mima Erazo [facility] CPT-65021 Level 3 Est. Patient 16:22:09 CDT Cherelle Avila [facility] CPT-55394 Level 4 Est. Patient 17:55:14 CDT Mima Erazo [facility] CPT-32198 Level 2 Est. Patient 17:13:21 CDT Alina Castaneda MD PhD [facility] CPT-69828 Level 3 Est. Patient 14:46:15 CDT Vanessa Hickey MD [facility] CPT-27901 Level 3 Est. Patient 09:34:56 CDT Alina Castaneda MD [facility]-67781 Level 3 Est. Patient 21:40:19 CDT Mima Erazo [facility]-59267 Level 3 Est. Patient 09:26:40 CDT Marvel [facility]-40802 Level 3 Est. Patient 12:36:43 CDT Vanessa Hickey MD [facility]-13807 Level 3 Est. Patient 12:57:49 CDT Vanessa Hickey MD [facility]-26111 Level 3 Est. Patient 00:28:25 CDT Alina Castaneda MD [facility]72693 Level 2 Est. Patient 12:52:14 CDT Alina Castaneda MD [facility]-94844 Level 3 Est. Patient 11:51:18 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 Alina Castaneda MD [facility] CPT-00566 Level 3 Est. Patient 10:09:22 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 Alina Castaneda MD [facility]-28078 Level 3 Est. Patient 14:36:26 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 Marvel [facility] CPT-72474 Level 3 Est. Patient 13:34:47 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 Alina Castaneda MD [facility]-96483 Level 3 Est. Patient 19:52:08 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 Alina Castaneda MD [facility] CPT-95399 Level 3 Est. Patient 10:01:51 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 Marvel [facility]-92766 Level 3 Est. Patient 21:54:06 CDT Vanessa Hickey MD [facility]-94094 Level 3 Est. Patient 08:54:46 CDT Alina Castaneda MD [facility]-48980 Level 3 Est. Patient 09:32:11 CDT Marvel [facility]-17714 Level 3 Est. Patient 12:02:49 CDT Alina Castaneda MD [facility]-56566 Level 3 Est. Patient 19:17:33 CDT Alina Castaneda MD [facility]-37759 Level 3 Est. Patient 13:19:10 CDT Marvel Gurdeepajayestela [facility]-88629 Level 3 Est. Patient 08:20:05 CDT Alina Castaneda MD [facility]-44668 Level 3 Est. Patient 15:17:18 CDT Alina Castaneda MD [facility]-99930 Level 3 Est. Patient 14:25:36 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 Marvel [facility]-59634 Level 3 Est. Patient 10:09:15 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 [facility] Est[facility] Patient 21:28:43 CDT Alina Castaneda MD [facility]-67882 Level 3 Est. Patient 15:20:11 CDT Marvel Arac[facility]-98327 Level 4 Est. Patient 19:08:12 CDT Alina Castaneda MD [facility]-40208 Level 3 Est. Patient 15:06:39 CDT Brook[place] Ar[facility]-16891 Level 4 Est. Patient 17:48:15 CDT Alina Castaneda MD [facility]-16485 Level 3 Est. Patient 14:53:49 CDT Alina Castaneda MD [facility]-62104 Level 3 Est. Patient 09:35:16 CDT Alina Castaneda MD [facility]-02075 Level 3 Est. Patient 12:23:22 CDT Alina Castaneda MD [facility]58972 Level 3 Est. Patient 16:19:15 CDT Alina Castaneda MD [facility]-45356 Level 3 Est. Patient 21:39:56 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 Alina Castaneda MD [facility]-02121 Level 4 Est. Patient 14:12:56 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 Alina Castaneda MD [facility]75791 Level 2 Est. Patient 15:34:57 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 Alina Castaneda MD [facility]-09116 Level 3 Est. Patient 12:17:04 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 Alina Castaneda MD [facility]-59311 Level 3 Est. Patient 09:18:18 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 Marvel [facility]-61974 Level 2 Est. Patient 21:50:24 CDT Alina Castaneda MD [facility]-64249 Level 3 Est. Patient 09:17:28 CDT Marvel [facility]-20193 Level 4 Est. Patient 18:54:02 CDT Alina Castaneda MD [facility]-37111 Level 3 Est. Patient 10:47:10 CDT Alina Castaneda MD [facility]90558 Level 3 Est. Patient 09:22:20 CDT Marvel [facility]-76524 Level 3 Est. Patient 16:39:43 CDT Marvel [facility] CPT-63937 Level 3 Est. Patient 16:05:16 CDT Alina Castaneda MD [facility] CPT-87643 Level 3 Est. Patient 00:29:15 CDT Alina Castaneda MD [facility] CPT-94598 Level 3 Est. Patient 10:49:22 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 [facility] CPT-10210 Level 3 Est. Patient 21:30:19 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 Alina Castaneda MD [facility] CPT-81113 Level 4 Est. Patient 17:04:11 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 [facility] CPT-80265 Level 3 Est. Patient 15:34:11 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 Level 2 Est. Patient 12:51:58 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 Alina Castaneda MD [facility] CPT-01650 Level 3 Est. Patient 13:20:01 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 Alina Castaneda MD [facility] CPT-04006 Level 3 Est. 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
--- OUTSIDE RECORDS SUMMARY | 2018-07-02 19:08 | XMS REPORT | Clinical Summary ---
[...] PhD Gout, unspecified FH STROKE V17.1 Resolved Mavrel MARROQUIN Family history of stroke (cerebrovascular) FATIGUE 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 Erazo LOAD DROPPER Benign paroxysmal positional vertigo Vertigo, benign paroxysmal position 386.11 Inactive Mima Erazo LOAD DROPPER Benign paroxysmal positional vertigo High-risk sexual behavior V69.2 Active Alina Castaneda MD PhD High-risk sexual behavior Erectile dysfunction 302.72 Active Alina Castaneda MD PhD Psychosexual dysfunction with inhibited sexual excitement Constipation 564.00 Active Alina Castaneda MD PhD Constipation, unspecified Skin lesion 709.9 Active Alina Castaneda MD PhD Unspecified disorder of skin and subcutaneous tissue Malaise and fatigue 780.79 Active Cherelle Speaks LOAD DROPPER Other malaise and fatigue Diarrhea 787.91 Active Cherelle Speaks LOAD DROPPER Diarrhea PHARYNGITIS 462 Active Cherelle Speaks LOAD DROPPER Acute pharyngitis Colitis 558.9 Active Mima Erazo LOAD DROPPER Other and unspecified noninfectious gastroenteritis and colitis [...] 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 Roro Castaneda MD PhD ABNORMAL HEART RHYTHMS [...] atypical ICD-786.59 Inactive Alian Castaneda MD PhD Chest pain, atypical ICD-786.59 Inactive Alina Castaneda MD PhD Hypoglycemia ICD-251.2 Inactive Alina Castaneda MD PhD Dizziness ICD-780.4 Inactive Alina Castaneda MD PhD Medication List Medication Instructions Start Date Stop Date Generic Name NDC Status Provider Patient Instruction LEVEMIR FLEXTOUCH 100 UNIT/ML SC SOPN 75 units SQ each evening, for diabetes INSULIN DETEMIR 58090580228 Active Salina ROJAS Active TRUEPLUS LANCETS 30G MISC 3 a day LANCETS 62851693858 Active Marvel MARROQUIN Active TOLTERODINE TARTRATE 2 MG TABS 1 pill twice daily, for bladder TOLTERODINE TARTRATE 20823307544 No Longer Active Vanessa Hickey MD Active AMITIZA 24 MCG ORAL CAPS Take one capsule BID for constipation. LUBIPROSTONE 43107938286 No Longer Active Vanessa Hickey MD Active LOMOTIL 2.5-0.025 MG ORAL TABS take 1-2 tabs PO after each stool, no more than 8 in 24 hours DIPHENOXYLATE-ATROPINE 19219510968 Active Grace ROJAS Active FLUVOXAMINE MALEATE 100 MG ORAL TABS take one tab every AM et HS, and take 1/ 2 tab at noon FLUVOXAMINE MALEATE 53890140119 Active Grace ROJAS Active METOPROLOL SUCCINATE 100 MG [id number] 1 by mouth daily for blood pressure METOPROLOL SUCCINATE 36262978136 No Longer Active Grace Nelsonb RMA Active METFORMIN HCL ER 500 MG EQ22A-ZTJ Take three tablets by mouth everyday METFORMIN HCL 51608945523 No Longer Active Grace Azam RMA Active LOVAZA 1 GM CAPS 4 daily (for triglycerides) OMEGA-3- ACID ETHYL ESTERS 22911194607 No Longer Active Grace Azam RMA Active TRAZODONE HCL 100 MG ORAL TABS 1 tab by mouth for sleep TRAZODONE HCL 89020937564 No Longer Active Grace Azam RMA Active NOVOFINE 32G X 6 MM MISC use one four times per day INSULIN PEN NEEDLE 12686348645 No Longer Active Grace Azam RMA Active BACTROBAN 2 % CREAM Apply to affected area BID for up to 10 days MUPIROCIN CALCIUM 45640405253 No Longer Active Grace Azam RMA Active ZOFRAN 4 MG TABS 1 po q4hr PRN [place]ause[place] ONDANSETRON HCL 11713394168 Active Salina Han RMA Active KEFLEX 500 MG CAP 1 po BID x 7 days CEPHALEXIN 08994767046 No Longer Active Cherelle Speaks LOAD DROPPER Active FLUVOXAMINE MALEATE 100 MG TABS Take one (1) tablet by mouth am, 1/2 at noon FLUVOXAMINE MALEATE 85763869420 No Longer Active Mima Erazo LOAD DROPPER Active CORICIDIN HBP CONGESTION/COUGH 10-200 MG ORAL CAPS Take as directed on box as needed for cold/flu symptoms DEXTROMETHORPHAN-GUAIFENESIN 14249357045 Active Cherelle Speaks LOAD DROPPER Active OMEGA-3 300 MG ORAL CAPS 4 caps by mouth daily OMEGA-3 FATTY ACIDS 99322849082 Active Cherelle Speaks LOAD DROPPER Active FLUVOXAMINE MALEATE 100 MG ORAL TABS Take 1/2 tab at noon FLUVOXAMINE MALEATE 75306297589 No Longer Active Cherelle Avila LOAD DROPPER Active [facility] 0.4-0.3 % OPHTH SOLN POLYETHYL GLYCOL-PROPYL GLYCOL 90687086982 Active Mima Erazo LOAD DROPPER Active CLONAZEPAM 1 MG TABS 1/2 pill by mouth three times daily CLONAZEPAM 53545336416 Active Alina Castaneda MD PhD Active MIRALAX POWD 17g by mouth daily, for constipation POLYETHYLENE GLYCOL 3350 54106574275 Active Alina Castaneda MD PhD Active HYDROCODONE-ACETAMINOPHEN 5-325 MG TABS 2 tabs by mouth three times daily for pain HYDROCODONE-ACETAMINOPHEN 32235111166 Active Mima Erazo LOAD DROPPER Active HUMALOG KWIKPEN 100 UNIT/ML SC SOPN 20 units with breakfast, 10 units with lunch, 10 units with dinner, for diabetes INSULIN LISPRO (HUMAN ) 30926067259 Active Alina Castaneda MD PhD Active LATUDA 120 MG ORAL TABS 1 pill by mouth nightly LURASIDONE HCL 93929907582 Active Alina Castaneda MD PhD Active COLACE 100 MG CAPS 1 pill by mouth twice daily, for constipation DOCUSATE SODIUM 38460258571 Active Alina Castaneda MD PhD Active TRUETEST TEST STRP check blood sugars 3x/day GLUCOSE BLOOD 42316391313 Active Marvel Thurstonari GLAZE SPRAYER Active ACCU-CHEK ROSA UZMA Use device to check blood sugars BLOOD GLUCOSE MONITORING SUPPL 96647111166 No Longer Active Marvel Mackenzieglari LOPEZ Active ACCU-CHEK ROSA INVITR STRP use strips with device to check blood sugars 3 times daily GLUCOSE BLOOD 80198214537 No Longer Active Marvel MENDOZAP Active VERAPAMIL HCL ER 180 MG ORAL CR-TABS 1 pill by mouth twice daily, for migraine prevention VERAPAMIL HCL 97872456180 Active Alina Castaneda MD PhD Active CYCLOBENZAPRINE HCL 10 MG TABS 1 tablet by mouth three times daily, scheduled CYCLOBENZAPRINE HCL 23002731775 No Longer Active Alina Castaneda MD PhD Active HUMALOG 100 UNIT/ML SOLN Take 20 units with breakfast, 10u with lunch and suppetr. INSULIN LISPRO (HUMAN) 74378893236 No Longer Active Alina Castaneda MD PhD Active TRUETEST TEST STRP check sugars 4x/day GLUCOSE BLOOD 27962906819 No Longer Active Alina Castaneda MD PhD Active MORPHINE SULFATE 30 MG TABS 1 pill by mouth twice daily, for pain MORPHINE SULFATE 00765323051 Active Mima Erazo LOAD DROPPER Active ACYCLOVIR 400 MG ORAL TABS 1 pill three times daily x 5 days, for cold sore outbreak ACYCLOVIR 25020925401 No Longer Active Alina Castaneda MD PhD Active PENICILLIN V POTASSIUM 500 MG TABS 1 pill by mouth three times daily PENICILLIN V POTASSIUM 44040456936 No Longer Active Alina Castaneda MD PhD Active UROXATRAL 10 MG PR11U-RYC Take 1 tablet by mouth daily ALFUZOSIN HCL 13255807515 No Longer Active Alina Castaneda MD PhD Active THIOTHIXENE 5 MG CAPS by mouth twice a day THIOTHIXENE 61569681579 No Longer Active Alina Castaneda MD PhD Active ZYPREXA 7.5 MG TABS 1 at HS OLANZAPINE 62656398086 No Longer Active Alina Castaneda MD PhD Active BD INSULIN SYRINGE 28G X 1/2" 1 ML MISC 1 four times per day INSULIN SYRINGE-NEEDLE U-100 32050250208 Active [facility] Gurdeepglestela [facility] Active DETROL LA 4 MG [id number]-XWA Take 1 tablet by mouth daily TOLTERODINE TARTRATE 55892117944 No Longer Active Alina Castaneda MD PhD Active TERESE CONTOUR TEST STRP monitor blood sugars 3x/day GLUCOSE BLOOD 61089817907 No Longer Active Alina Castaneda MD PhD Active EQL TRUETEST TEST STRP Test blood sugar TID GLUCOSE BLOOD 45207585203 No Longer Active Alina Castaneda MD PhD Active FLUTICASONE PROPIONATE 50 MCG/ACT SUSP 2 sprays each nostril qDay x 30 days FLUTICASONE PROPIONATE 34167088271 No Longer Active Alina Castaneda MD PhD Active IBUPROFEN 200 MG TABS 1 Q 6 hr. PRN IBUPROFEN 87052227575 No Longer Active Alina Castaneda MD PhD Active NIACIN ER 500 MG CR-TABS 4 qHS (for triglycerides) NIACIN 29427399119 No Longer Active Alina Castaneda MD PhD Active ALFUZOSIN HCL ER 10 MG HE29F-JCG 1 tablet daily ALFUZOSIN HCL 36830117581 Active Vanessa Hickey MD Active SAPHRIS 5 MG SUBL by mouth twice a day ASENAPINE MALEATE 35688387735 No Longer Active Maliheh Ziglari GLAZE SPRAYER Active ACETAMINOPHEN 500 MG TABS 2 Q 6 hr. PRN ACETAMINOPHEN 37504130176 No Longer Active Maliheh Ziglari GLAZE SPRAYER Active ORPHENADRINE CITRATE ER 100 MG NW06C-OHZ 1 every 12 hr. as needed ORPHENADRINE CITRATE 88568412470 No Longer Active Alina Castaneda MD PhD Active NIACIN CR 500 MG CR-TABS 2 qHS NIACIN 51293528039 No Longer Active Alina Castaneda MD PhD Active AMOXICILLIN 500 MG CAPS 2 po BID x 10 days AMOXICILLIN 70068140139 No Longer Active Alina Castaneda MD PhD Active HYDROCODONE-ACETAMINOPHEN 7.5-325 MG TABS 1 four times a day as needed for pain HYDROCODONE-ACETAMINOPHEN 69308366583 No Longer Active Alina Castaneda MD PhD Active DOXEPIN HCL 10 MG CAPS Take 1 tablet by mouth daily DOXEPIN HCL 26663174912 No Longer Active Salina ROJAS Active NAVANE 10 MG CAPS 1/2 tablet twice a day THIOTHIXENE No Longer Active Salina ROBBINSA Active CYCLOBENZAPRINE HCL 10 MG TABS 1/2 tablet by mouth every 8 hours as needed for muscle spasms CYCLOBENZAPRINE HCL 68338437320 No Longer Active Alina Castaneda MD PhD Active BACTROBAN 2 % CREAM apply to ear and nose twice daily MUPIROCIN CALCIUM 48835549368 No Longer Active Alina Castaneda MD PhD Active HYDROCODONE-ACETAMINOPHEN 5-325 MG TABS take one tablet by mouth every four hours as needed for pain HYDROCODONE-ACETAMINOPHEN 62708511867 No Longer Active Alina Castaneda MD PhD Active ZOLPIDEM TARTRATE 10 MG TABS take at bedtime ZOLPIDEM TARTRATE 06993091671 Active Alina Castaneda MD PhD Active ZYPREXA 5 MG TABS take one tablet by mouth every evening OLANZAPINE 06252715801 No Longer Active Alina Castaneda MD PhD Active ALBUTEROL SULFATE 0.083 % NEBU SOLN one vial per nebulizer TID and PRN cough/ soa ALBUTEROL SULFATE 56576605226 No Longer Active Alina Castaneda MD PhD Active GUAIFENESIN 600 MG DG11I-IQF 1 tablet by mouth twice daily if needed for cough GUAIFENESIN 01097352292 No Longer Active Marvel MARROQUIN Active AZITHROMYCIN 500 MG SOLR 1 po q day AZITHROMYCIN 55124565427 No Longer Active Alina Castaneda MD PhD Active PROMETHAZINE-CODEINE 6.25-10 MG/5ML SYRP 1 tsp po q 6 hours prn cough PROMETHAZINE-CODEINE 95146041687 No Longer Active Alina Castaneda MD PhD Active CEFDINIR 300 MG CAPS by mouth twice a day CEFDINIR 41180953253 No Longer Active Alina Castaneda MD PhD Active METFORMIN HCL 500 MG NJ20R-PVK Take 3 tablets by mouth everyday METFORMIN HCL 35266288808 No Longer Active Alina Castaneda MD PhD Active LEVEMIR 100 UNIT/ML SOLN 90 units SQ qHS INSULIN DETEMIR 48735836194 No Longer Active Marvel MARROQUIN Active TOPROL XL 100 MG [id number]-FLG 1 @ HS METOPROLOL SUCCINATE 61039682646 No Longer Active Marvel MARROQUIN Active ALLOPURINOL 300 MG TABS Take one by mouth daily ALLOPURINOL 55145482187 Active Alina Castaneda MD PhD Active ZYPREXA 10 MG TABS Take one by mouth daily OLANZAPINE 78002303658 No Longer Active Alina Castaneda MD PhD Active NOVOLOG 100 UNIT/ML SOLN 40 units with every meal INSULIN ASPART 46132661757 No Longer Active Alina Castaneda MD PhD Active VERAPAMIL HCL CR 120 MG TAB CR 1 qPM VERAPAMIL HCL 06127047595 No Longer Active Salina ROJAS Active ZYPREXA 15 MG TABS Take 1 tablet by mouth daily OLANZAPINE 41873128415 No Longer Active Marvel MARROQUIN Active LISINOPRIL 20 MG TABS 1 BID LISINOPRIL 48897081181 Active Alina Castaneda MD PhD Active ALBUTEROL SULFATE (2.5 MG/3ML) 0.083% NEBU 1 neb tid and prn cough ALBUTEROL SULFATE 88260898876 No Longer Active Alina Castaneda MD PhD Active TRAVATAN Z 0.004 % SOLN 1 gtt each eye daily TRAVOPROST 16516091490 Active CRYSTAL Suarez Active LANTUS 100 UNIT/ML SOLN 60 units sq q hs INSULIN GLARGINE 22131278427 No Longer Active CRYSTAL Suarez Active ALBUTEROL SULFATE (2.5 MG/3ML) 0.083% NEBU 1 neb tid and prn cough ALBUTEROL SULFATE (2.5 MG/3ML) 0.083% NEBU 613161 ALBUTEROL SULFATE Inactive ZYPREXA 15 MG TABS Take 1 tablet by mouth daily ZYPREXA 15 MG TABS 774370 OLANZAPINE Inactive VERAPAMIL HCL CR 120 MG TAB CR 1 qPM VERAPAMIL HCL CR 120 MG TAB CR VERAPAMIL HCL Inactive ZYPREXA 10 MG TABS Take one by mouth daily ZYPREXA 10 MG TABS 537293 OLANZAPINE Inactive TOPROL XL 100 MG [id number] 1 @ HS TOPROL XL 100 MG NB60D-JYI METOPROLOL SUCCINATE Inactive LEVEMIR 100 UNIT/ML SOLN 90 units SQ qHS LEVEMIR 100 UNIT/ML SOLN INSULIN DETEMIR Inactive PROMETHAZINE-CODEINE 6.25-10 MG/5ML SYRP 1 tsp po q 6 hours prn cough PROMETHAZINE-CODEINE 6.25-10 MG/5ML SYRP 328783 PROMETHAZINE- CODEINE Inactive GUAIFENESIN 600 MG SQ86U-BQJ 1 tablet by mouth twice daily if needed for cough GUAIFENESIN 600 MG JA29Q-DRI GUAIFENESIN Inactive ALBUTEROL SULFATE 0.083 % NEBU SOLN one vial per nebulizer TID and PRN cough/ soa ALBUTEROL SULFATE 0.083 % NEBU SOLN 423988 ALBUTEROL SULFATE Inactive ZYPREXA 5 MG TABS take one tablet by mouth every evening ZYPREXA 5 MG TABS 872870 OLANZAPINE Inactive HYDROCODONE-ACETAMINOPHEN 5-325 MG TABS take one tablet by mouth every four hours as needed for pain HYDROCODONE-ACETAMINOPHEN 5-325 MG TABS 700723 HYDROCODONE-ACETAMINOPHEN Inactive BACTROBAN 2 % CREAM apply to ear and nose twice daily BACTROBAN 2 % CREAM 893871 MUPIROCIN CALCIUM Inactive CYCLOBENZAPRINE HCL 10 MG TABS 1/2 tablet by mouth every 8 hours as needed for muscle spasms CYCLOBENZAPRINE HCL 10 MG TABS 547148 CYCLOBENZAPRINE HCL Inactive NAVANE 10 MG CAPS 1/2 tablet twice a day NAVANE 10 MG CAPS THIOTHIXENE Inactive DOXEPIN HCL 10 MG CAPS Take 1 tablet by mouth daily DOXEPIN HCL 10 MG CAPS 6748833 DOXEPIN HCL Inactive HYDROCODONE-ACETAMINOPHEN 7.5-325 MG TABS 1 four times a day as needed for pain HYDROCODONE-ACETAMINOPHEN 7.5-325 MG TABS 985757 HYDROCODONE-ACETAMINOPHEN Inactive NIACIN CR 500 MG CR-TABS 2 qHS NIACIN CR 500 MG CR- TABS NIACIN Inactive ORPHENADRINE CITRATE ER 100 MG [id number]-VUP 1 every 12 hr. as needed ORPHENADRINE CITRATE ER 100 MG GK81I-XPC ORPHENADRINE CITRATE Inactive ACETAMINOPHEN 500 MG TABS 2 Q 6 hr. PRN ACETAMINOPHEN 500 MG TABS 364674 ACETAMINOPHEN Inactive SAPHRIS 5 MG SUBL by mouth twice a day SAPHRIS 5 MG SUBL ASENAPINE MALEATE Inactive NIACIN ER 500 MG CR-TABS 4 qHS (for triglycerides) NIACIN ER 500 MG CR-TABS NIACIN Inactive IBUPROFEN 200 MG TABS 1 Q 6 hr. PRN IBUPROFEN 200 MG TABS 564300 IBUPROFEN Inactive FLUTICASONE PROPIONATE 50 MCG/ACT SUSP 2 sprays each nostril qDay x 30 days FLUTICASONE PROPIONATE 50 MCG/ACT SUSP 625256 FLUTICASONE PROPIONATE Inactive EQL TRUETEST TEST STRP Test blood sugar TID EQL TRUETEST TEST STRP GLUCOSE BLOOD Inactive TERESE CONTOUR TEST STRP monitor blood sugars 3x/day TERESE CONTOUR TEST STRP GLUCOSE BLOOD Inactive DETROL LA 4 MG [id number] Take 1 tablet by mouth daily DETROL LA 4 MG QB24K-RDY TOLTERODINE TARTRATE Inactive ZYPREXA 7.5 MG TABS 1 at HS ZYPREXA 7.5 MG TABS 942670 OLANZAPINE Inactive THIOTHIXENE 5 MG CAPS by mouth twice a day THIOTHIXENE 5 MG CAPS 368436 THIOTHIXENE Inactive UROXATRAL 10 MG [id number]-YVS Take 1 tablet by mouth daily UROXATRAL 10 MG HD85L-DRB ALFUZOSIN HCL Inactive ACYCLOVIR 400 MG ORAL TABS 1 pill three times daily x 5 days, for cold sore outbreak ACYCLOVIR 400 MG ORAL TABS 927626 ACYCLOVIR Inactive TRUETEST TEST STRP check sugars 4x/day TRUETEST TEST STRP GLUCOSE BLOOD Inactive HUMALOG 100 UNIT/ML SOLN Take 20 units with breakfast, 10u with lunch and suppetr. HUMALOG 100 UNIT/ML SOLN INSULIN LISPRO ( HUMAN) Inactive CYCLOBENZAPRINE HCL 10 MG TABS 1 tablet by mouth three times daily, scheduled CYCLOBENZAPRINE HCL 10 MG TABS 834461 CYCLOBENZAPRINE HCL Inactive ACCU-CHEK ROSA INVITR STRP use strips with device to check blood sugars 3 times daily ACCU-CHEK ROSA INVITR STRP GLUCOSE BLOOD Inactive ACCU-CHEK ROSA UZMA Use device to check blood sugars ACCU-CHEK ROSA UZMA BLOOD GLUCOSE MONITORING SUPPL Inactive FLUVOXAMINE MALEATE 100 MG ORAL TABS Take 1/2 tab at noon FLUVOXAMINE MALEATE 100 MG ORAL TABS 079677 FLUVOXAMINE MALEATE Inactive FLUVOXAMINE MALEATE 100 MG TABS Take one (1) tablet by mouth am, 1/2 at noon FLUVOXAMINE MALEATE 100 MG TABS 422653 FLUVOXAMINE MALEATE Inactive BACTROBAN 2 % CREAM Apply to affected area BID for up to 10 days BACTROBAN 2 % CREAM 983748 MUPIROCIN CALCIUM Inactive NOVOFINE 32G X 6 MM MISC use one four times per day NOVOFINE 32G X 6 MM MISC INSULIN PEN NEEDLE Inactive TRAZODONE HCL 100 MG ORAL TABS 1 tab by mouth for sleep TRAZODONE HCL 100 MG ORAL TABS 528428 TRAZODONE HCL Inactive LOVAZA 1 GM CAPS 4 daily (for triglycerides) LOVAZA 1 GM CAPS 678170 DDOVS-7-QFYX ETHYL ESTERS Inactive METFORMIN HCL ER 500 MG XE66G-DLB Take three tablets by mouth everyday METFORMIN HCL ER 500 MG FH54O-YUA METFORMIN HCL Inactive METOPROLOL SUCCINATE 100 MG VR48E-JKP 1 by mouth daily for blood pressure METOPROLOL SUCCINATE 100 MG FI55X-TAP METOPROLOL SUCCINATE Inactive AMITIZA 24 MCG ORAL CAPS Take one capsule BID for constipation. AMITIZA 24 MCG ORAL CAPS LUBIPROSTONE Inactive TOLTERODINE TARTRATE 2 MG TABS 1 pill twice daily, for bladder TOLTERODINE TARTRATE 2 MG TABS 910766 TOLTERODINE TARTRATE Inactive CEFDINIR 300 MG CAPS by mouth twice a day CEFDINIR 300 MG CAPS 144015 CEFDINIR Inactive AZITHROMYCIN 500 MG SOLR 1 po q day AZITHROMYCIN 500 MG SOLR 89183081965 AZITHROMYCIN Inactive AMOXICILLIN 500 MG CAPS 2 po BID x 10 days AMOXICILLIN 500 MG CAPS 753125 AMOXICILLIN Inactive PENICILLIN V POTASSIUM 500 MG TABS 1 pill by mouth three times daily PENICILLIN V POTASSIUM 500 MG TABS 890625 PENICILLIN V POTASSIUM Inactive KEFLEX 500 MG CAP 1 po BID x 7 days KEFLEX 500 MG CAP 057792 CEPHALEXIN Inactive Immunizations Vaccine Administration Date Value [...] Fluvirin, Fluarix, Agriflu(>=18 yo)) Fluzone (>3 yrs.) [[id number]] Influenza, seasonal, injectable pneumococcal immunization administered Pneumovax [...] MICROALBUMIN - Chemistry sodium, serum 137 mmol/L 919-086 1571/05/19 potassium, serum 5.2 mmol/L 3.5-5.2 chloride, serum [...] Panel - Chemistry sodium, serum 137 mmol/L 831-749 5739/10/12 potassium, serum 4.8 mmol/L 3.5-5.2 chloride, serum 102 mmol/L 98-107 carbon dioxide, venous blood 27.6 mmol/L 21.0-32.0 blood glucose 168 mg/dL 65-110 calcium, serum 9.0 mg/dL 8.5-10.1 urea nitrogen, blood 15 mg/dL 7-18 creatinine, serum 1.04 mg/dL 0.55-1.30 sodium, serum 138 mmol/L 113-774 4343/11/11 potassium, serum 4.7 mmol/L 3.5-5.2 chloride, serum [...] % 11.6-14.8 platelet count 252 10^3/MM^3 10*3/mm3 629-314 2827/10/12 leukocyte count, blood 5.8 10^3/MM^3 10*3/mm3 4.6-10.2 [...] 240 10^3/MM^3 10*3/mm3 142-424 Lab Report: Chlamydia/GC APTIMA/82465, HIV-1/2 Agn/Dominga/23255, RPR (DX) W ... - Chemistry hepatitis B surface antigen NON-REACTIVE NON-REACTIVE Lab Report: Chlamydia/GC APTIMA/70317, HIV-1/2 Agn/Dominga/49903, RPR (DX) W ... - Lab chlamydia DNA probe NOT DETECTED NOT DETECTED Lab Report: Chlamydia/GC APTIMA/99175, HIV-1/2 Agn/Dominga/50888, RPR (DX) W ... - Microbiology Neisseria gonorrhoeae DNA probe NOT DETECTED NOT DETECTED Lab Report: Chlamydia/GC APTIMA/02422, HIV-1/2 Agn/Dominga/83551, RPR (DX) W ... - Serology rapid plasma reagin antibody titer NON-REACTIVE NON-REACTIVE Lab Report: HGBA1C - Chemistry hemoglobin A1C, blood, as % of total hemoglobin 6.1 % 4.3-6.0 hemoglobin A1C, blood, as % of total hemoglobin 6.3 % 4.3-6.0 Lab Report: Lipid Panel, HEPATIC PANEL, MICROALBUMIN, CBC - Chemistry cholesterol, serum 131 mg/dL 101-544 0647/06/03 triglyceride, serum, fasting 383 mg/dL 30-200 HDL [...] 4.7 mg/dL 2.6-7.2 cholesterol, serum 142 mg/dL 474-628 2344/06/26 triglyceride, serum, fasting 272 mg/dL 30-200 HDL [...] negative Encounters Code Encounter Date Provider Facility CPT-29961 Level 3 Est. Patient 14:39:00 DEBT COLLECTOR Vanessa Hickey MD [facility] CPT-45272 Level 2 Est. Patient 18:43:34 CDT Mima Erazo [facility] CPT-67643 Level 3 Est. Patient 16:22:09 CDT Cherelle Avila [facility] CPT-94145 Level 4 Est. Patient 17:55:14 CDT Mima Erazo [facility] CPT-52698 Level 2 Est. Patient 17:13:21 CDT Alina Castaneda MD PhD [facility] CPT-99395 Level 3 Est. Patient 14:46:15 CDT Vanessa Hickey MD [facility]-56104 Level 3 Est. Patient 09:34:56 CDT Alina Castaneda MD PhD [facility]87884 Level 3 Est. Patient 21:40:19 CDT Mima Erazo [facility] CPT-25646 Level 3 Est. Patient 09:26:40 [facility] Patient 12:36:43 CDT Vanessa Hickey MD [facility]-26330 Level 3 Est. Patient 12:57:49 CDT Vanessa Hickey MD [facility]-92912 Level 3 Est. Patient 00:28:25 CDT Alina Castaneda MD [facility]-55963 Level 2 Est. Patient 12:52:14 CDT Alina Castaneda MD [facility]-47295 Level 3 Est. Patient 11:51:18 DEBT COLLECTOR Alina Castaneda MD [facility]-40271 Level 3 Est. Patient 10:09:22 DEBT COLLECTOR Alina Castaneda MD [facility]-79690 Level 3 Est. Patient 14:36:26 [facility]-52052 Level 3 Est. Patient 13:34:47 DEBT COLLECTOR Alina Castaneda MD [facility]-50569 Level 3 Est. Patient 19:52:08 DEBT COLLECTOR Alina Castaneda MD [facility]72799 Level 3 Est. Patient 10:01:51 DEBT COLLECTOR Marvel Charles [facility]-64112 Level 3 Est. Patient 21:54:06 CDT Vanessa Hickey MD [facility]-92001 Level 3 Est. Patient 08:54:46 CDT Alina Castaneda MD [facility]-70168 Level 3 Est. Patient 09:32:11 CDT Marvel [facility]-41288 Level 3 Est. Patient 12:02:49 CDT Alina Castaneda MD [facility]68377 Level 3 Est. Patient 19:17:33 CDT Alina Castaneda MD [facility]-17672 Level 3 Est. Patient 13:19:10 CDT Marvel Charles [facility]-06677 Level 3 Est. Patient 08:20:05 CDT Alina Castaneda MD [facility]86934 Level 3 Est. Patient 15:17:18 CDT Alina Castaneda MD [facility]-78599 Level 3 Est. Patient 14:25:36 DEBT COLLECTOR Marvel Charles [facility]-77417 Level 3 Est. Patient 10:09:15 DEBT COLLECTOR Marvel Charles [facility]-76892 Level 3 Est. Patient 21:28:43 CDT Alina Castaneda MD [facility]-79576 Level 3 Est. Patient 15:20:11 [facility] Est[facility] Patient 19:08:12 CDT Alina Castaneda MD [facility]-21016 Level 3 Est. Patient 15:06:39 CDT Marvel Charles [facility]-78373 Level 4 Est. Patient 17:48:15 CDT Alina Castaneda MD [facility]-70339 Level 3 Est. Patient 14:53:49 CDT Alina Castaneda MD [facility]-68116 Level 3 Est. Patient 09:35:16 CDT Alina Castaneda MD [facility]60390 Level 3 Est. Patient 12:23:22 CDT Alina Castaneda MD [facility]-59660 Level 3 Est. Patient 16:19:15 CDT Alina Castaneda MD [facility]-81261 Level 3 Est. Patient 21:39:56 DEBT COLLECTOR Alina Castaneda MD [facility]-43225 Level 4 Est. Patient 14:12:56 DEBT COLLECTOR Alina Castaneda MD [facility]45614 Level 2 Est. Patient 15:34:57 DEBT COLLECTOR Alina Castaneda MD [facility]30204 Level 3 Est. Patient 12:17:04 DEBT COLLECTOR Alina Castaneda MD [facility]58250 Level 3 Est. Patient 09:18:18 DEBT COLLECTOR Marvel Charles [facility]-41682 Level 2 Est. Patient 21:50:24 CDT Alina Castaneda MD [facility]25049 Level 3 Est. Patient 09:17:28 CDT Marvel Charles [facility]-76258 Level 4 Est. Patient 18:54:02 CDT Alina Castaneda MD [facility]30970 Level 3 Est. Patient 10:47:10 CDT Alina Castaneda MD [facility]-45522 Level 3 Est. Patient 09:22:20 CDT Marvel Charles [facility]-16211 Level 3 Est. Patient 16:39:43 CDT Marvel Charles [facility]-19212 Level 3 Est. Patient 16:05:16 CDT Alina Castaneda MD [facility]76779 Level 3 Est. Patient 00:29:15 CDT Alina Castaneda MD [facility]39638 Level 3 Est. Patient 10:49:22 DEBT COLLECTOR [facility] CPT-36270 Level 3 Est. Patient 21:30:19 DEBT COLLECTOR Alina Castaneda MD [facility] CPT-27515 Level 4 Est. Patient 17:04:11 DEBT COLLECTOR [facility] CPT-67167 Level 3 Est. Patient 15:34:11 DEBT COLLECTOR [facility] CPT-03081 Level 2 Est. Patient 12:51:58 DEBT COLLECTOR Alina Castaneda MD [facility] CPT-03474 Level 3 Est. Patient 13:20:01 DEBT COLLECTOR Alina Castaneda MD [facility] CPT-55159 Level 3 Est. Patient 09:23:35 CDT Alina Castaneda MD [facility] Procedures Code Procedure Name Date Entry Date Standard Description [facility]-68701 Bladder Scan 14:39:01 DEBT COLLECTOR CPT-TCMM Transitional Care Mgmt-Moderate 10:30:19 DEBT COLLECTOR CPT-98334 Bladder Scan 12:36:44 CDT CPT-04443 Bladder Scan 21:54:06 CDT CPT-G0008 Administration of Influenza Virus Vaccine 13:05:26 CDT CPT-08418 Fluzone Quadrivalent Intramuscular Suspension 0.5 ML 13: 05:26 CDT CPT-74221 Administration single or combination vaccine inc oral 11 :49:51 CDT CPT-65780 Pneumovax 11:49:51 CDT CPT-58243 Ribs unilateral 2V 12:37:22 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
--- OUTSIDE RECORDS SUMMARY | 2018-07-02 19:09 | XMS REPORT | Clinical Summary ---
[...] skin and subcutaneous tissue HEADACHE 784.0 Active Alnia Castaneda MD PhD Headache SINUSITIS, ACUTE 461.9 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 Kacey SHADE HANGER Benign paroxysmal positional vertigo Vertigo, benign paroxysmal position 386.11 Inactive Mima Kacey SHADE HANGER Benign paroxysmal positional vertigo High-risk sexual behavior [...] 10u lunch and supper INSULIN LISPRO (HUMAN) 75732832006 Active Marvel Araceli MARROQUIN Active LATUDA 120 MG ORAL TABS 1 pill by mouth nightly LURASIDONE HCL 79905717050 Active Alina Castaneda MD PhD Active COLACE 100 MG CAPS 1 pill by mouth twice daily, for constipation DOCUSATE SODIUM 67692212787 Active Alina Castaneda MD PhD Active TRUETEST TEST STRP check blood sugars 3x/day GLUCOSE BLOOD 84276067725 Active Malnivia 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 [employer]ODUCTS DEMONSTRATOR Active ACCU-CHEK ROSA UZMA Use device to check blood sugars BLOOD GLUCOSE MONITORING SUPPL 94944315745 No Longer Active Marvel 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 MEAT [employer]ODUCTS DEMONSTRATOR Active ACCU-CHEK ROSA INVITR STRP use strips with device to check blood sugars 3 times daily GLUCOSE BLOOD 74605307481 No Longer Active Brooksnivia Araceli MENDOZAP Active VERAPAMIL HCL ER 180 MG ORAL CR-TABS 1 pill by mouth twice daily, for migraine prevention VERAPAMIL HCL 14895339047 Active Alina Castaneda MD PhD Active CYCLOBENZAPRINE HCL 10 MG TABS 1 tablet by mouth three times daily, scheduled CYCLOBENZAPRINE HCL 23383937484 No Longer Active Alina Castaneda MD PhD Active HUMALOG 100 UNIT/ML SOLN Take 20 units with breakfast, 10u with lunch and suppetr. INSULIN LISPRO (HUMAN) 86480737321 No Longer Active Alina Castaneda MD PhD Active TRUETEST TEST STRP check sugars 4x/day GLUCOSE BLOOD 09533611957 No Longer Active Alina Castaneda MD PhD Active MORPHINE SULFATE 30 MG TABS 1 pill by mouth twice daily, for pain MORPHINE SULFATE 44423177545 Active Alina Castaneda MD PhD Active ACYCLOVIR 400 MG ORAL TABS 1 pill three times daily x 5 days, for cold sore outbreak ACYCLOVIR 57962107566 No Longer Active Alina Castaneda MD PhD Active PENICILLIN V POTASSIUM 500 MG TABS 1 pill by mouth three times daily PENICILLIN V POTASSIUM 66767200488 No Longer Active Alina Castaneda MD PhD Active UROXATRAL 10 MG [id number]-[id number] Take 1 tablet by mouth daily ALFUZOSIN HCL 21416431219 No Longer Active Alina Castaneda MD PhD Active THIOTHIXENE 5 MG CAPS by mouth twice a day THIOTHIXENE 89151865803 No Longer Active Alina Castaneda MD PhD Active ZYPREXA 7.5 MG TABS 1 at HS OLANZAPINE 78124702600 No Longer Active Alina Castaneda MD PhD Active LEVEMIR 100 UNIT/ML SOLN Take 70 u at 7-8pm INSULIN DETEMIR 25780170416 Active Maliheh Ziglari [employer]AT [employer]ODUCTS DEMONSTRATOR Active BD INSULIN SYRINGE 28G X 1/2" 1 ML MISC 1 four times per day INSULIN SYRINGE-NEEDLE U-100 77472027736 Active Mallashondaeh Ziglari [employer]AT [employer] DEMONSTRATOR Active TOLTERODINE TARTRATE 2 MG TABS 1 pill twice daily, for bladder TOLTERODINE TARTRATE 69016211264 Active Alina Castaneda MD PhD Active DETROL LA 4 MG [id number] Take 1 tablet by mouth daily TOLTERODINE TARTRATE 05730320796 No Longer Active Alina Castaneda MD PhD Active HYDROCODONE-ACETAMINOPHEN 5-325 MG TABS 2 tabs by mouth three times daily as needed for pain HYDROCODONE-ACETAMINOPHEN 62213114886 Active Alina Castaneda MD PhD Active TERESE CONTOUR TEST STRP monitor blood sugars 3x/day GLUCOSE BLOOD 76216026323 No Longer Active Alina Castaneda MD PhD Active EQL TRUETEST TEST STRP Test blood sugar TID GLUCOSE BLOOD 40076966254 No Longer Active Alina Castaneda MD PhD Active FLUTICASONE PROPIONATE 50 MCG/ACT SUSP 2 sprays each nostril qDay x 30 days FLUTICASONE PROPIONATE 90285412767 No Longer Active Alina Castaneda MD PhD Active IBUPROFEN 200 MG TABS 1 Q 6 hr. PRN IBUPROFEN 28902150084 No Longer Active Alina Castaneda MD PhD Active NIACIN ER 500 MG CR-TABS 4 qHS (for triglycerides) NIACIN 37842323879 No Longer Active Alina Castaneda MD PhD Active ALFUZOSIN HCL ER 10 MG [id number] 1 tablet daily ALFUZOSIN HCL 03656039130 Active Vanessa Hickey MD Active CLONAZEPAM 1 MG TABS 1 pill by mouth three times daily CLONAZEPAM 01623131978 Active Alina Castaneda MD PhD Active LOVAZA 1 GM CAPS 4 daily (for triglycerides) [id number]-[id number] ETHYL ESTERS 17646708895 Active Alina Castaneda MD PhD Active SAPHRIS 5 MG SUBL by mouth twice a day ASENAPINE MALEATE 30479487994 No Longer Active Marvel MARROQUIN Active ACETAMINOPHEN 500 MG TABS 2 Q 6 hr. PRN ACETAMINOPHEN 40612966624 No Longer Active Marvel MARROQUIN Active ORPHENADRINE CITRATE ER 100 MG [id number]-ITB 1 every 12 hr. as needed ORPHENADRINE CITRATE 62881411711 No Longer Active Alina Castaneda MD PhD Active NIACIN CR 500 MG CR-TABS 2 qHS NIACIN 97710234017 No Longer Active Alina Castaneda MD PhD Active AMOXICILLIN 500 MG CAPS 2 po BID x 10 days AMOXICILLIN 86569469339 No Longer Active Alina Castaneda MD PhD Active HYDROCODONE-ACETAMINOPHEN 7.5-325 MG TABS 1 four times a day as needed for pain HYDROCODONE-ACETAMINOPHEN 63322027671 No Longer Active Alina Castaneda MD PhD Active METFORMIN HCL ER 500 MG [id number] Take three tablets by mouth everyday METFORMIN HCL 38370193018 Active Marvel Mackenzieglestela [employer]AT [employer] DEMONSTRATOR Active DOXEPIN HCL 10 MG CAPS Take 1 tablet by mouth daily DOXEPIN HCL 63306298187 No Longer Active Salina Han [facility] Active NAVANE 10 MG CAPS 1/2 tablet twice a day THIOTHIXENE No Longer Active Salina Han A Active CYCLOBENZAPRINE HCL 10 MG TABS 1/2 tablet by mouth every 8 hours as needed for muscle spasms CYCLOBENZAPRINE HCL 66732495724 No Longer Active Alina Castaneda MD PhD Active BACTROBAN 2 % CREAM apply to ear and nose twice daily MUPIROCIN CALCIUM 35919951375 No Longer Active Alina Castaneda MD PhD Active HYDROCODONE-ACETAMINOPHEN 5-325 MG TABS take one tablet by mouth every four hours as needed for pain HYDROCODONE-ACETAMINOPHEN 67072296251 No Longer Active Alina Castaneda MD PhD Active ZOLPIDEM TARTRATE 10 MG TABS take at bedtime ZOLPIDEM TARTRATE 05478031739 Active Alina Castaneda MD PhD Active ZYPREXA 5 MG TABS take one tablet by mouth every evening OLANZAPINE 78580523217 No Longer Active Alina Castaneda MD PhD Active ALBUTEROL SULFATE 0.083 % NEBU SOLN one vial per nebulizer TID and PRN cough/ soa ALBUTEROL SULFATE 09892979566 No Longer Active Alina Castaneda MD PhD Active GUAIFENESIN 600 MG TE76M-IOB 1 tablet by mouth twice daily if needed for cough GUAIFENESIN 69848033964 No Longer Active Marvel Charles [facility] Active AZITHROMYCIN 500 MG SOLR 1 po q day AZITHROMYCIN 76813114111 No Longer Active Alina Castaneda MD PhD Active METOPROLOL SUCCINATE 100 MG CX01X-HPC 1 by mouth daily for blood pressure METOPROLOL SUCCINATE 66211692250 Active Alina Castaneda MD PhD Active PROMETHAZINE-CODEINE 6.25-10 MG/5ML SYRP 1 tsp po q 6 hours prn cough PROMETHAZINE-CODEINE 75323187125 No Longer Active Alina Castaneda MD PhD Active CEFDINIR 300 MG CAPS by mouth twice a day CEFDINIR 71062839850 No Longer Active Alina Castaneda MD PhD Active METFORMIN HCL 500 MG MX07H-KDE Take 3 tablets by mouth everyday METFORMIN HCL 96361631376 No Longer Active Alina Castaneda MD PhD Active LEVEMIR 100 UNIT/ML SOLN 90 units SQ qHS INSULIN DETEMIR 03149854730 No Longer Active Marvel MARROQUIN Active TOPROL XL 100 MG EG47J-SVK 1 @ HS METOPROLOL SUCCINATE 44486394056 No Longer Active Marvel MARROQUIN Active ALLOPURINOL 300 MG TABS Take one by mouth daily ALLOPURINOL 12619957201 Active Alina Castaneda MD PhD Active ZYPREXA 10 MG TABS Take one by mouth daily OLANZAPINE 15795537497 No Longer Active Alina Castaneda MD PhD Active NOVOLOG 100 UNIT/ML SOLN 40 units with every meal INSULIN ASPART 39205824300 No Longer Active Alina Castaneda MD PhD Active VERAPAMIL HCL CR 120 MG TAB CR 1 qPM VERAPAMIL HCL 36347647667 No Longer Active Salina Han A Active ZYPREXA 15 MG TABS Take 1 tablet by mouth daily OLANZAPINE 83623911014 No Longer Active Marvel MARROQUIN Active LISINOPRIL 20 MG TABS 1 BID LISINOPRIL 25104825787 Active Alina Castaneda MD PhD Active ALBUTEROL SULFATE (2.5 MG/3ML) 0.083% NEBU 1 neb tid and prn cough ALBUTEROL SULFATE 10433320776 No Longer Active Alina Castaneda MD PhD Active FLUVOXAMINE MALEATE 100 MG TABS Take one (1) tablet by mouth am, 1/2 at noon, 1 pm FLUVOXAMINE MALEATE 44955474959 Active Alina Castaneda MD PhD Active TRAVATAN Z 0.004 % SOLN 1 gtt each eye daily TRAVOPROST 20008611198 Active CRYSTAL Suarez Active LANTUS 100 UNIT/ML SOLN 60 units sq q hs INSULIN GLARGINE 62996283483 No Longer Active CRYSTAL Suarez Active ALBUTEROL SULFATE (2.5 MG/3ML) 0.083% NEBU 1 neb tid and prn cough ALBUTEROL SULFATE (2.5 MG/3ML) 0.083% NEBU 874505 ALBUTEROL SULFATE Inactive ZYPREXA 15 MG TABS Take 1 tablet by mouth daily ZYPREXA 15 MG TABS 740776 OLANZAPINE Inactive VERAPAMIL HCL CR 120 MG TAB CR 1 qPM VERAPAMIL HCL CR 120 MG TAB CR VERAPAMIL HCL Inactive ZYPREXA 10 MG TABS Take one by mouth daily ZYPREXA 10 MG TABS 463473 OLANZAPINE Inactive TOPROL XL 100 MG BE13R-NEH 1 @ HS TOPROL XL 100 MG [id number]-ITQ METOPROLOL SUCCINATE Inactive LEVEMIR 100 UNIT/ML SOLN 90 units SQ qHS LEVEMIR 100 UNIT/ML SOLN INSULIN DETEMIR Inactive PROMETHAZINE-CODEINE 6.25-10 MG/5ML SYRP 1 tsp po q 6 hours prn cough PROMETHAZINE-CODEINE 6.25-10 MG/5ML SYRP 336847 PROMETHAZINE- CODEINE Inactive GUAIFENESIN 600 MG EZ55M-QAT 1 tablet by mouth twice daily if needed for cough GUAIFENESIN 600 MG HB43D-DXD GUAIFENESIN Inactive ALBUTEROL SULFATE 0.083 % NEBU SOLN one vial per nebulizer TID and PRN cough/ soa ALBUTEROL SULFATE 0.083 % NEBU SOLN 438119 ALBUTEROL SULFATE Inactive ZYPREXA 5 MG TABS take one tablet by mouth every evening ZYPREXA 5 MG TABS 385900 OLANZAPINE Inactive HYDROCODONE-ACETAMINOPHEN 5-325 MG TABS take one tablet by mouth every four hours as needed for pain HYDROCODONE-ACETAMINOPHEN 5-325 MG TABS 197929 HYDROCODONE-ACETAMINOPHEN Inactive BACTROBAN 2 % CREAM apply to ear and nose twice daily BACTROBAN 2 % CREAM 033204 MUPIROCIN CALCIUM Inactive CYCLOBENZAPRINE HCL 10 MG TABS 1/2 tablet by mouth every 8 hours as needed for muscle spasms CYCLOBENZAPRINE HCL 10 MG TABS 660882 CYCLOBENZAPRINE HCL Inactive NAVANE 10 MG CAPS 1/2 tablet twice a day NAVANE 10 MG CAPS THIOTHIXENE Inactive DOXEPIN HCL 10 MG CAPS Take 1 tablet by mouth daily DOXEPIN HCL 10 MG CAPS 1072044 DOXEPIN HCL Inactive HYDROCODONE-ACETAMINOPHEN 7.5-325 MG TABS 1 four times a day as needed for pain HYDROCODONE-ACETAMINOPHEN 7.5-325 MG TABS 033979 HYDROCODONE-ACETAMINOPHEN Inactive NIACIN CR 500 MG CR-TABS 2 qHS NIACIN CR 500 MG CR- TABS NIACIN Inactive ORPHENADRINE CITRATE ER 100 MG IP19Q-GLD 1 every 12 hr. as needed ORPHENADRINE CITRATE ER 100 MG [id number]-TOU ORPHENADRINE CITRATE Inactive ACETAMINOPHEN 500 MG TABS 2 Q 6 hr. PRN ACETAMINOPHEN 500 MG TABS 771629 ACETAMINOPHEN Inactive SAPHRIS 5 MG SUBL by mouth twice a day SAPHRIS 5 MG SUBL ASENAPINE MALEATE Inactive NIACIN ER 500 MG CR-TABS 4 qHS (for triglycerides) NIACIN ER 500 MG CR-TABS NIACIN Inactive IBUPROFEN 200 MG TABS 1 Q 6 hr. PRN IBUPROFEN 200 MG TABS 044539 IBUPROFEN Inactive FLUTICASONE PROPIONATE 50 MCG/ACT SUSP 2 sprays each nostril qDay x 30 days FLUTICASONE PROPIONATE 50 MCG/ACT SUSP 316398 FLUTICASONE PROPIONATE Inactive EQL TRUETEST TEST STRP Test blood sugar TID EQL TRUETEST TEST STRP GLUCOSE BLOOD Inactive TERESE CONTOUR TEST STRP monitor blood sugars 3x/day TERESE CONTOUR TEST STRP GLUCOSE BLOOD Inactive DETROL LA 4 MG AP31O-KFU Take 1 tablet by mouth daily DETROL LA 4 MG [id number] TOLTERODINE TARTRATE Inactive ZYPREXA 7.5 MG TABS 1 at HS ZYPREXA 7.5 MG TABS 971593 OLANZAPINE Inactive THIOTHIXENE 5 MG CAPS by mouth twice a day THIOTHIXENE 5 MG CAPS 904029 THIOTHIXENE Inactive UROXATRAL 10 MG VF48R-UXB Take 1 tablet by mouth daily UROXATRAL 10 MG BU46U-LPB ALFUZOSIN HCL Inactive ACYCLOVIR 400 MG ORAL TABS 1 pill three times daily x 5 days, for cold sore outbreak ACYCLOVIR 400 MG ORAL TABS 932981 ACYCLOVIR Inactive TRUETEST TEST STRP check sugars 4x/day TRUETEST TEST STRP GLUCOSE BLOOD Inactive HUMALOG 100 UNIT/ML SOLN Take 20 units with breakfast, 10u with lunch and suppetr. HUMALOG 100 UNIT/ML SOLN INSULIN LISPRO ( HUMAN) Inactive CYCLOBENZAPRINE HCL 10 MG TABS 1 tablet by mouth three times daily, scheduled CYCLOBENZAPRINE HCL 10 MG TABS 884584 CYCLOBENZAPRINE HCL Inactive ACCU-CHEK ROSA INVITR STRP use strips with device to check blood sugars 3 times daily ACCU-CHEK ROSA INVITR STRP GLUCOSE BLOOD Inactive ACCU-CHEK ROSA UZMA Use device to check blood sugars ACCU-CHEK ROSA UZMA BLOOD GLUCOSE MONITORING SUPPL Inactive CEFDINIR 300 MG CAPS by mouth twice a day CEFDINIR 300 MG CAPS 139044 CEFDINIR Inactive AZITHROMYCIN 500 MG SOLR 1 po q day AZITHROMYCIN 500 MG SOLR 656755 AZITHROMYCIN Inactive AMOXICILLIN 500 MG CAPS 2 po BID x 10 days AMOXICILLIN 500 MG CAPS 810770 AMOXICILLIN Inactive PENICILLIN V POTASSIUM 500 MG TABS 1 pill by mouth three times daily PENICILLIN V POTASSIUM 500 MG TABS 342986 PENICILLIN V POTASSIUM Inactive Immunizations Vaccine Administration [...] Fluvirin, Fluarix, Agriflu(>=18 yo)) Fluzone (>3 yrs.) [[id number]] Influenza, seasonal, injectable pneumococcal immunization administered Pneumovax [...] pressure, diastolic - 8462-4 62 mm[Hg] BP gracia blood pressure, systolic - 8480-6 133 mm[Hg] [...] HGBA1C - Chemistry sodium, serum 131 mmol/L 935-861 8593/12/30 potassium, serum 5.0 mmol/L 3.5-5.2 chloride, serum 95 mmol/L 98-107 carbon dioxide, venous blood 26.7 mmol/L 21.0-32.0 blood glucose 112 mg/dL 65-110 calcium, serum 9.2 mg/dL 8.5-10.1 urea nitrogen, blood 12 mg/dL 7-18 creatinine, serum 1.10 mg/dL 0.60-1.30 hemoglobin A1C, blood, as % of total hemoglobin 5.8 % 4.3-6.0 Lab Report: Basic Metabolic Panel, HGBA1C, MICROALBUMIN - Chemistry sodium, serum 137 mmol/L 319-346 8012/05/19 potassium, serum 5.2 mmol/L 3.5-5.2 chloride, serum [...] microalbumin, urine 10 0-19 Lab Report: Chlamydia/GC APTIMA/65827, HIV-1/2 Agn/Dominga/80581, RPR (DX) W ... - Chemistry hepatitis B surface antigen NON-REACTIVE NON-REACTIVE Lab Report: Chlamydia/GC APTIMA/02287, HIV-1/2 Agn/Dominga/10635, RPR (DX) W ... - Lab chlamydia DNA probe NOT DETECTED NOT DETECTED Lab Report: Chlamydia/GC APTIMA/10757, HIV-1/2 Agn/Dominga/51612, RPR (DX) W ... - Microbiology Neisseria gonorrhoeae DNA probe NOT DETECTED NOT DETECTED Lab Report: Chlamydia/GC APTIMA/10728, HIV-1/2 Agn/Dominga/07383, RPR (DX) W ... - Serology rapid plasma reagin antibody titer NON-REACTIVE NON-REACTIVE Lab Report: Comp. Metabolic Panel - Chemistry sodium, serum 127 mmol/L 088-032 2868/10/27 potassium, serum 4.1 mmol/L 3.5-5.2 chloride, serum [...] CBC - Chemistry cholesterol, serum 131 mg/dL 253-770 0850/06/03 triglyceride, serum, fasting 383 mg/dL 30-200 HDL [...] mg/dL Encounters Code Encounter Date Provider Facility CPT-36125 Level 3 Est. Patient 09:34:56 CDT Alina Castaneda MD PhD [facility] CPT-30370 Level 3 Est. Patient 21:40:19 CDT Mima Erazo APRN [facility] CPT-58823 Level 3 Est. Patient 09:26:40 CDT Marvel MARROQUIN [facility] CPT-98568 Level 3 Est. Patient 12:36:43 CDT Vanessa Hickey MD [facility] CPT-16053 Level 3 Est. Patient 12:57:49 CDT Vanessa Hickey MD [facility] CPT-73909 Level 3 Est. Patient 00:28:25 CDT Alina Castaneda MD [facility] CPT-99274 Level 2 Est. Patient 12:52:14 CDT Alina Castaneda MD [facility] CPT-51601 Level 3 Est. Patient 11:51:18 AIRLINE SECURITY REPRESENTATIVE Alina Castaneda MD [facility] CPT-39912 Level 3 Est. Patient 10:09:22 AIRLINE SECURITY REPRESENTATIVE Alina Castaneda MD [facility] CPT-09191 Level 3 Est. Patient 14:36:26 AIRLINE SECURITY REPRESENTATIVE Marvel Gurdeepajayestela [facility]-57514 Level 3 Est. Patient 13:34:47 AIRLINE SECURITY REPRESENTATIVE Alina Castaneda MD [facility]69981 Level 3 Est. Patient 19:52:08 AIRLINE SECURITY REPRESENTATIVE Alnia Castaneda MD [facility]49553 Level 3 Est. Patient 10:01:51 AIRLINE SECURITY REPRESENTATIVE Marvel Charles [facility]06754 Level 3 Est. Patient 21:54:06 CDT Vanessa Hickey MD [facility]44979 Level 3 Est. Patient 08:54:46 CDT Alina Castaneda MD [facility]02360 Level 3 Est. Patient 09:32:11 CDT Marvel Gurdeepajayestela [facility]55343 Level 3 Est. Patient 12:02:49 CDT Alina Castaneda MD [facility]95317 Level 3 Est. Patient 19:17:33 CDT Alina Castaneda MD [facility]67678 Level 3 Est. Patient 13:19:10 CDT Brooksjohn Charles [facility]-77482 Level 3 Est. Patient 08:20:05 CDT Alina Castaneda MD [facility]53952 Level 3 Est. Patient 15:17:18 CDT Alina Castaneda MD [facility]48687 Level 3 Est. Patient 14:25:36 AIRLINE SECURITY REPRESENTATIVE Marvel Araceli [facility]58019 Level 3 Est. Patient 10:09:15 AIRLINE SECURITY REPRESENTATIVE Marvel Araceli [facility]94905 Level 3 Est. Patient 21:28:43 CDT Alina Castaneda MD [facility]-89955 Level 3 Est. Patient 15:20:11 CDT Marvel Charles [facility]-27420 Level 4 Est. Patient 19:08:12 CDT Alina Castaneda MD [facility]-77525 Level 3 Est. Patient 15:06:39 CDT Marvel Charles [facility]-52186 Level 4 Est. Patient 17:48:15 CDT Alina Castaneda MD [facility]-57839 Level 3 Est. Patient 14:53:49 CDT Alina Castaneda MD [facility]-08615 Level 3 Est. Patient 09:35:16 CDT Alina Castaneda MD [facility]-80280 Level 3 Est. Patient 12:23:22 CDT Alina Castaneda MD [facility]-40642 Level 3 Est. Patient 16:19:15 CDT Alina Castaneda MD [facility]-51918 Level 3 Est. Patient 21:39:56 AIRLINE SECURITY REPRESENTATIVE Alina Castaneda MD [facility]-43088 Level 4 Est. Patient 14:12:56 AIRLINE SECURITY REPRESENTATIVE Alina Castaneda MD [facility]-59980 Level 2 Est. Patient 15:34:57 AIRLINE SECURITY REPRESENTATIVE Alina Castaneda MD [facility]-86747 Level 3 Est. Patient 12:17:04 AIRLINE SECURITY REPRESENTATIVE Alina Castaneda MD [facility]-28323 Level 3 Est. Patient 09:18:18 AIRLINE SECURITY REPRESENTATIVE Marvel Charles [facility]-20245 Level 2 Est. Patient 21:50:24 CDT Alina Castaneda MD [facility]-06526 Level 3 Est. Patient 09:17:28 CDT Marvel Charles [facility]-08090 Level 4 Est. Patient 18:54:02 CDT Alina Castaneda MD [facility]24469 Level 3 Est. Patient 10:47:10 CDT Alina Castaneda MD [facility]84917 Level 3 Est. Patient 09:22:20 CDT Marvel Charles [facility]-45368 Level 3 Est. Patient 16:39:43 CDT Brooksnivia Charles [facility]-39116 Level 3 Est. Patient 16:05:16 CDT Alina Castaneda MD [facility]19112 Level 3 Est. Patient 00:29:15 CDT Alina Castaneda MD [facility]20224 Level 3 Est. Patient 10:49:22 AIRLINE SECURITY REPRESENTATIVE Marvel Charles [facility]-56041 Level 3 Est. Patient 21:30:19 AIRLINE SECURITY REPRESENTATIVE Alina Castaneda MD [facility]-78209 Level 4 Est. Patient 17:04:11 AIRLINE SECURITY REPRESENTATIVE Marvel Charles [facility]-43247 Level 3 Est. Patient 15:34:11 AIRLINE SECURITY REPRESENTATIVE Marvel Charles [facility]-53248 Level 2 Est. Patient 12:51:58 AIRLINE SECURITY REPRESENTATIVE Alina Castaneda MD [facility]67081 Level 3 Est. Patient 13:20:01 AIRLINE SECURITY REPRESENTATIVE Alina Castaneda MD [facility]81080 Level 3 Est. Patient 09:23:35 CDT Alina Castaneda MD PhD [facility] Procedures Code Procedure Name Date Entry Date Standard Description CPT-67494 Bladder Scan 12:36:44 CDT CPT-23987 Bladder Scan 21:54:06 CDT CPT-G0008 Administration of Influenza Virus Vaccine 13:05:26 CDT CPT-92406 Fluzone Quadrivalent Intramuscular Suspension 0.5 ML 13: 05:26 CDT CPT-95132 Administration single or combination vaccine inc oral 11 :49:51 CDT CPT-94164 Pneumovax 11:49:51 CDT CPT-21211 Ribs unilateral 2V 12:37:22 AIRLINE SECURITY REPRESENTATIVE CPT-31818 Chest 2V Frontal and Lat 17:15:26 CDT CPT-10396 Abx/Therapy Injection 18:54:02 CDT CPT-J0696 Rocephin 1000 mg (Ceftriaxone) 16:00:32 CDT CPT-83063 Chest 2V Frontal and Lat 15:26:45 CDT CPT-39094 Chest 2V Frontal and Lat 10:23:27 CDT CPT-48698 Venipuncture Draw Fee 10:11:00 CDT CPT-54326 Administration single or combination vaccine inc oral 11 :56:38 CDT CPT-70031 Influenza split virus > age 3 11:56:38 CDT CPT-69537 Venipuncture Draw Fee 08:49:54 AIRLINE SECURITY REPRESENTATIVE CPT-31895 EKG Trac and Interp 17:54:19 AIRLINE SECURITY REPRESENTATIVE
--- OUTSIDE RECORDS SUMMARY | 2018-07-02 19:11 | XMS REPORT | Clinical Summary ---
Author Author Admin, TERELL Organization [facility] Address Unknown Phone Unavailable Allergies, Adverse Reactions, [...] DIABETES MELLITUS, TYPE II, UNCONTROLLED 250.02 Resolved Mravel MARROQUIN Diabetes mellitus without mention of complication [...] and subcutaneous tissue HEADACHE 784.0 Active Alina Csataneda MD PhD Headache SINUSITIS, ACUTE 461.9 Resolved 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 Erazo ACCOUNTANT AUDITOR Benign paroxysmal positional vertigo Vertigo, benign paroxysmal position 386.11 Inactive Mima Erazo ACCOUNTANT AUDITOR Benign paroxysmal positional vertigo High-risk sexual behavior V69.2 Active Alina Castaneda MD PhD High-risk sexual behavior Erectile dysfunction 302.72 Active Alina Castaneda MD PhD Psychosexual dysfunction with inhibited sexual excitement Constipation 564.00 Active Alina Castaneda MD PhD Constipation, unspecified Skin lesion 709.9 Active Alina Castaneda MD PhD Unspecified disorder of skin and subcutaneous tissue Malaise and fatigue 780.79 Active Cherelle Speaks ACCOUNTANT AUDITOR Other malaise and fatigue Diarrhea 787.91 Active Cherelle Speaks ACCOUNTANT AUDITOR Diarrhea PHARYNGITIS 462 Active Cherelle Speaks ACCOUNTANT AUDITOR Acute pharyngitis Colitis 558.9 Active Mima Erazo ACCOUNTANT AUDITOR Other and unspecified noninfectious gastroenteritis and colitis WOUND, OPEN, NOSE ICD-873.20 Inactive Alina Castaneda MD PhD DIABETES, TYPE 2 ICD-250.00 Inactive Alina Castaneda MD PhD HYPERTENSION ICD-401.9 Inactive Alina Castaneda MD PhD URI ICD-465.9 Inactive Alina Castaneda MD PhD CHEST PAIN ICD-786.50 Inactive Alina Castaneda MD PhD FH STROKE ICD-V17.1 Inactive Marvel Charles SECURITIES ATTORNEY FATIGUE ICD-780.79 Inactive Alina Castaneda MD PhD [...] MISC 4 a day INSULIN PEN NEEDLE 60882744364 Active Marvel MARROQUIN Active AMITIZA 24 MCG ORAL CAPS Take one capsule BID for constipation LUBIPROSTONE 22928397693 Active Mima Erazo APRN Active LEVEMIR FLEXTOUCH 100 UNIT/ML SC SOPN 75 units SQ each evening, for diabetes INSULIN DETEMIR 78732887090 Active CRYSTAL Rodrigues Active TRUEPLUS LANCETS 30G MISC 3 a day LANCETS 67754452957 Active Marvel MARROQUIN Active TOLTERODINE TARTRATE 2 MG TABS 1 pill twice daily, for bladder TOLTERODINE TARTRATE 46125358931 No Longer Active Vanessa Hickey MD Active AMITIZA 24 MCG ORAL CAPS Take one capsule BID for constipation. LUBIPROSTONE 87946631628 No Longer Active Vanessa Hickey MD Active LOMOTIL 2.5-0.025 MG ORAL TABS take 1-2 tabs PO after each stool, no more than 8 in 24 hours DIPHENOXYLATE-ATROPINE 01780712432 Active Grace Azam RMA Active FLUVOXAMINE MALEATE 100 MG ORAL TABS take one tab every AM et HS, and take 1/ 2 tab at noon FLUVOXAMINE MALEATE 20034709741 Active Gracekailee Nelsonb RMA Active METOPROLOL SUCCINATE 100 MG [id number] 1 by mouth daily for blood pressure METOPROLOL SUCCINATE 10511337118 No Longer Active Grace Azam RMA Active METFORMIN HCL ER 500 MG [id number]-FPP Take three tablets by mouth everyday METFORMIN HCL 39776732897 No Longer Active Grace Azam RMA Active LOVAZA 1 GM CAPS 4 daily (for triglycerides) OMEGA-3- ACID ETHYL ESTERS 08229101795 No Longer Active Grace Azam RMA Active TRAZODONE HCL 100 MG ORAL TABS 1 tab by mouth for sleep TRAZODONE HCL 09056200189 No Longer Active Gracekailee Nelsonb RMA Active NOVOFINE 32G X 6 MM MISC use one four times per day INSULIN PEN NEEDLE 26100268001 No Longer Active Grace Azam RMA Active BACTROBAN 2 % CREAM Apply to affected area BID for up to 10 days MUPIROCIN CALCIUM 90772598167 No Longer Active Grace Azam RMA Active ZOFRAN 4 MG TABS 1 po q4hr PRN Nausea ONDANSETRON HCL 68805831715 Active Salina Han RMA Active KEFLEX 500 MG CAP 1 po BID x 7 days CEPHALEXIN 93869223443 No Longer Active Cherelle Avila APRN Active FLUVOXAMINE MALEATE 100 MG TABS Take one (1) tablet by mouth am, 1/2 at noon FLUVOXAMINE MALEATE 24810616768 No Longer Active Mima Erazo APRN Active CORICIDIN HBP CONGESTION/COUGH 10-200 MG ORAL CAPS Take as directed on box as needed for cold/flu symptoms DEXTROMETHORPHAN-GUAIFENESIN 85370063033 Active Cherelle Speaks ACCOUNTANT AUDITOR Active OMEGA-3 300 MG ORAL CAPS 4 caps by mouth daily OMEGA-3 FATTY ACIDS 33626520760 Active Cherelle Speaks ACCOUNTANT AUDITOR Active FLUVOXAMINE MALEATE 100 MG ORAL TABS Take 1/2 tab at noon FLUVOXAMINE MALEATE 79217869656 No Longer Active Cherelle Speaks ACCOUNTANT AUDITOR Active [facility] LUBRICANT EYE DROPS 0.4-0.3 % OPHTH SOLN POLYETHYL GLYCOL-PROPYL GLYCOL 17135299490 Active Mima Yoeloinaum ACCOUNTANT AUDITOR Active CLONAZEPAM 1 MG TABS 1/2 pill by mouth three times daily CLONAZEPAM 81962551055 Active Alina Castaneda MD PhD Active MIRALAX POWD 17g by mouth daily, for constipation POLYETHYLENE GLYCOL 3350 04324073931 Active Alina Castaneda MD PhD Active HYDROCODONE-ACETAMINOPHEN 5-325 MG TABS 2 tabs by mouth three times daily for pain HYDROCODONE-ACETAMINOPHEN 68436426338 Active Mima Erazo ACCOUNTANT AUDITOR Active HUMALOG KWIKPEN 100 UNIT/ML SC SOPN 20 units with breakfast, 10 units with lunch, 10 units with dinner, for diabetes INSULIN LISPRO (HUMAN ) 09610778456 Active Alina Castaneda MD PhD Active LATUDA 120 MG ORAL TABS 1 pill by mouth nightly LURASIDONE HCL 22767105647 Active Alina Castaneda MD PhD Active COLACE 100 MG CAPS 1 pill by mouth twice daily, for constipation DOCUSATE SODIUM 06805121877 Active Alina Castaneda MD PhD Active TRUETEST TEST STRP check blood sugars 3x/day GLUCOSE BLOOD 92305318949 Active Marvel Mackenzieglari SECURITIES ATTORNEY Active ACCU-CHEK ROSA UZMA Use device to check blood sugars BLOOD GLUCOSE MONITORING SUPPL 05733287828 No Longer Active Maljohn Mackenzieglari SECURITIES ATTORNEY Active ACCU-CHEK ROSA INVITR STRP use strips with device to check blood sugars 3 times daily GLUCOSE BLOOD 11923080032 No Longer Active Marvel MENDOZAP Active VERAPAMIL HCL ER 180 MG ORAL CR-TABS 1 pill by mouth twice daily, for migraine prevention VERAPAMIL HCL 26526645738 Active Alina Castaneda MD PhD Active CYCLOBENZAPRINE HCL 10 MG TABS 1 tablet by mouth three times daily, scheduled CYCLOBENZAPRINE HCL 31552703744 No Longer Active Alina Castaneda MD PhD Active HUMALOG 100 UNIT/ML SOLN Take 20 units with breakfast, 10u with lunch and suppetr. INSULIN LISPRO (HUMAN) 20857882565 No Longer Active Alina Castaneda MD PhD Active TRUETEST TEST STRP check sugars 4x/day GLUCOSE BLOOD 62511521133 No Longer Active Alina Castaneda MD PhD Active MORPHINE SULFATE 30 MG TABS 1 pill by mouth twice daily, for pain MORPHINE SULFATE 10077213592 Active Mima Erazo ACCOUNTANT AUDITOR Active ACYCLOVIR 400 MG ORAL TABS 1 pill three times daily x 5 days, for cold sore outbreak ACYCLOVIR 05104825889 No Longer Active Alina Castaneda MD PhD Active PENICILLIN V POTASSIUM 500 MG TABS 1 pill by mouth three times daily PENICILLIN V POTASSIUM 06261065012 No Longer Active Alina Castaneda MD PhD Active UROXATRAL 10 MG AB77H-WCJ Take 1 tablet by mouth daily ALFUZOSIN HCL 37331645170 No Longer Active Alina Castaneda MD PhD Active THIOTHIXENE 5 MG CAPS by mouth twice a day THIOTHIXENE 31037250900 No Longer Active Alina Castaneda MD PhD Active ZYPREXA 7.5 MG TABS 1 at HS OLANZAPINE 63516784907 No Longer Active Alina Castaneda MD PhD Active BD INSULIN SYRINGE 28G X 1/2" 1 ML MISC 1 four times per day INSULIN SYRINGE-NEEDLE U-100 18120023144 Active Marvel Charles SECURITIES ATTORNEY Active DETROL LA 4 MG [id number]-KCH Take 1 tablet by mouth daily TOLTERODINE TARTRATE 20045451033 No Longer Active Alina Castaneda MD PhD Active TERESE CONTOUR TEST STRP monitor blood sugars 3x/day GLUCOSE BLOOD 40374886570 No Longer Active Alina Castaneda MD PhD Active EQL TRUETEST TEST STRP Test blood sugar TID GLUCOSE BLOOD 71759432427 No Longer Active Alina Castaneda MD PhD Active FLUTICASONE PROPIONATE 50 MCG/ACT SUSP 2 sprays each nostril qDay x 30 days FLUTICASONE PROPIONATE 76395629949 No Longer Active Alina Castaneda MD PhD Active IBUPROFEN 200 MG TABS 1 Q 6 hr. PRN IBUPROFEN 75843848300 No Longer Active Alina Castaneda MD PhD Active NIACIN ER 500 MG CR-TABS 4 qHS (for triglycerides) NIACIN 97869961923 No Longer Active Alina Castaneda MD PhD Active ALFUZOSIN HCL ER 10 MG LF86I-ZOJ 1 tablet daily ALFUZOSIN HCL 37644204505 Active Vanessa Hickey MD Active SAPHRIS 5 MG SUBL by mouth twice a day ASENAPINE MALEATE 72441559891 No Longer Active Maliheh Ziglari SECURITIES ATTORNEY Active ACETAMINOPHEN 500 MG TABS 2 Q 6 hr. PRN ACETAMINOPHEN 09684063359 No Longer Active Maliheh Ziglari SECURITIES ATTORNEY Active ORPHENADRINE CITRATE ER 100 MG PI88W-JYV 1 every 12 hr. as needed ORPHENADRINE CITRATE 33355129995 No Longer Active Alina Castaneda MD PhD Active NIACIN CR 500 MG CR-TABS 2 qHS NIACIN 28351735667 No Longer Active Alina Castaneda MD PhD Active AMOXICILLIN 500 MG CAPS 2 po BID x 10 days AMOXICILLIN 61193657302 No Longer Active Alina Castaneda MD PhD Active HYDROCODONE-ACETAMINOPHEN 7.5-325 MG TABS 1 four times a day as needed for pain HYDROCODONE-ACETAMINOPHEN 32885179149 No Longer Active Alina Castaneda MD PhD Active DOXEPIN HCL 10 MG CAPS Take 1 tablet by mouth daily DOXEPIN HCL 21206197085 No Longer Active Salina Han A Active NAVANE 10 MG CAPS 1/2 tablet twice a day THIOTHIXENE No Longer Active Salina Han A Active CYCLOBENZAPRINE HCL 10 MG TABS 1/2 tablet by mouth every 8 hours as needed for muscle spasms CYCLOBENZAPRINE HCL 02434693957 No Longer Active Alina Castaneda MD PhD Active BACTROBAN 2 % CREAM apply to ear and nose twice daily MUPIROCIN CALCIUM 61883674533 No Longer Active Alian Castaneda MD PhD Active HYDROCODONE-ACETAMINOPHEN 5-325 MG TABS take one tablet by mouth every four hours as needed for pain HYDROCODONE-ACETAMINOPHEN 16281637460 No Longer Active Alina Castaneda MD PhD Active ZOLPIDEM TARTRATE 10 MG TABS take at bedtime ZOLPIDEM TARTRATE 57565763270 Active Alina Castaneda MD PhD Active ZYPREXA 5 MG TABS take one tablet by mouth every evening OLANZAPINE 55718001602 No Longer Active Alina Castaneda MD PhD Active ALBUTEROL SULFATE 0.083 % NEBU SOLN one vial per nebulizer TID and PRN cough/ soa ALBUTEROL SULFATE 49081941221 No Longer Active Alina Castaneda MD PhD Active GUAIFENESIN 600 MG [id number]-DJH 1 tablet by mouth twice daily if needed for cough GUAIFENESIN 71417516021 No Longer Active Marvel Charles SECURITIES ATTORNEY Active AZITHROMYCIN 500 MG SOLR 1 po q day AZITHROMYCIN 88928953241 No Longer Active Alina Castaneda MD PhD Active PROMETHAZINE-CODEINE 6.25-10 MG/5ML SYRP 1 tsp po q 6 hours prn cough PROMETHAZINE-CODEINE 86289992264 No Longer Active Alina Castaneda MD PhD Active CEFDINIR 300 MG CAPS by mouth twice a day CEFDINIR 13305380784 No Longer Active Alina Castaneda MD PhD Active METFORMIN HCL 500 MG CY20J-TCC Take 3 tablets by mouth everyday METFORMIN HCL 19439079953 No Longer Active Alina Castaneda MD PhD Active LEVEMIR 100 UNIT/ML SOLN 90 units SQ qHS INSULIN DETEMIR 19453654910 No Longer Active Marvel MARROQUIN Active TOPROL XL 100 MG ZF13O-OYT 1 @ HS METOPROLOL SUCCINATE 90556589300 No Longer Active Marvel MARROQUIN Active ALLOPURINOL 300 MG TABS Take one by mouth daily ALLOPURINOL 94019057355 Active Alina Castaneda MD PhD Active ZYPREXA 10 MG TABS Take one by mouth daily OLANZAPINE 53215646072 No Longer Active Alina Castaneda MD PhD Active NOVOLOG 100 UNIT/ML SOLN 40 units with every meal INSULIN ASPART 29465212311 No Longer Active Alina Castaneda MD PhD Active VERAPAMIL HCL CR 120 MG TAB CR 1 qPM VERAPAMIL HCL 35067779942 No Longer Active Salina Ervinamelia ROBBINSA Active ZYPREXA 15 MG TABS Take 1 tablet by mouth daily OLANZAPINE 32644301394 No Longer Active Marvel MARROQUIN Active LISINOPRIL 20 MG TABS 1 BID LISINOPRIL 52340137594 Active Alina Castaneda MD PhD Active ALBUTEROL SULFATE (2.5 MG/3ML) 0.083% NEBU 1 neb tid and prn cough ALBUTEROL SULFATE 13275531060 No Longer Active Alina Castaneda MD PhD Active TRAVATAN Z 0.004 % SOLN 1 gtt each eye daily TRAVOPROST 06678669345 Active CRYSTAL Suarez Active LANTUS 100 UNIT/ML SOLN 60 units sq q hs INSULIN GLARGINE 94378905295 No Longer Active CRYSTAL Suarez Active ACETAMINOPHEN 500 MG TABS 2 Q 6 hr. PRN ACETAMINOPHEN 500 MG TABS 173969 ACETAMINOPHEN Inactive ALBUTEROL SULFATE 0.083 % NEBU SOLN one vial per nebulizer TID and PRN cough/ soa ALBUTEROL SULFATE 0.083 % NEBU SOLN 136433 ALBUTEROL SULFATE Inactive ALBUTEROL SULFATE (2.5 MG/3ML) 0.083% NEBU 1 neb tid and prn cough ALBUTEROL SULFATE (2.5 MG/3ML) 0.083% NEBU 178758 ALBUTEROL SULFATE Inactive AMOXICILLIN 500 MG CAPS 2 po BID x 10 days AMOXICILLIN 500 MG CAPS 166241 AMOXICILLIN Inactive CYCLOBENZAPRINE HCL 10 MG TABS 1/2 tablet by mouth every 8 hours as needed for muscle spasms CYCLOBENZAPRINE HCL 10 MG TABS 558394 CYCLOBENZAPRINE HCL Inactive CYCLOBENZAPRINE HCL 10 MG TABS 1 tablet by mouth three times daily, scheduled CYCLOBENZAPRINE HCL 10 MG TABS 901021 CYCLOBENZAPRINE HCL Inactive DOXEPIN HCL 10 MG CAPS Take 1 tablet by mouth daily DOXEPIN HCL 10 MG CAPS 0372608 DOXEPIN HCL Inactive IBUPROFEN 200 MG TABS 1 Q 6 hr. PRN IBUPROFEN 200 MG TABS 353582 IBUPROFEN Inactive KEFLEX 500 MG CAP 1 po BID x 7 days KEFLEX 500 MG CAP 972309 CEPHALEXIN Inactive NAVANE 10 MG CAPS 1/2 tablet [...] daily PENICILLIN V POTASSIUM 500 MG TABS 330967 PENICILLIN V POTASSIUM Inactive PROMETHAZINE-CODEINE 6.25-10 MG/5ML SYRP 1 tsp po q 6 hours prn cough PROMETHAZINE-CODEINE 6.25-10 MG/5ML SYRP 469937 PROMETHAZINE- CODEINE Inactive THIOTHIXENE 5 MG CAPS by mouth twice a day THIOTHIXENE 5 MG CAPS 285932 THIOTHIXENE Inactive TRAZODONE HCL 100 MG ORAL TABS 1 tab by mouth for sleep TRAZODONE HCL 100 MG ORAL TABS 036977 TRAZODONE HCL Inactive ACYCLOVIR 400 MG ORAL TABS 1 pill three times daily x 5 days, for cold sore outbreak ACYCLOVIR 400 MG ORAL TABS 696179 ACYCLOVIR Inactive FLUVOXAMINE MALEATE 100 MG ORAL TABS Take 1/2 tab at noon FLUVOXAMINE MALEATE 100 MG ORAL TABS 245212 FLUVOXAMINE MALEATE Inactive FLUVOXAMINE MALEATE 100 MG TABS Take one (1) tablet by mouth am, 1/2 at noon FLUVOXAMINE MALEATE 100 MG TABS 217099 FLUVOXAMINE MALEATE Inactive VERAPAMIL HCL CR 120 MG TAB CR 1 qPM VERAPAMIL HCL CR 120 MG TAB CR VERAPAMIL HCL Inactive HUMALOG 100 UNIT/ML SOLN Take 20 units with breakfast, 10u with lunch and suppetr. HUMALOG 100 UNIT/ML SOLN INSULIN LISPRO ( HUMAN) Inactive ZYPREXA 5 MG TABS take one tablet by mouth every evening ZYPREXA 5 MG TABS 302083 OLANZAPINE Inactive ZYPREXA 7.5 MG TABS 1 at HS ZYPREXA 7.5 MG TABS 791940 OLANZAPINE Inactive ZYPREXA 10 MG TABS Take one by mouth daily ZYPREXA 10 MG TABS 237989 OLANZAPINE Inactive AZITHROMYCIN 500 MG SOLR 1 po q day AZITHROMYCIN 500 MG SOLR 02631384598 AZITHROMYCIN Inactive BACTROBAN 2 % CREAM Apply to affected area BID for up to 10 days BACTROBAN 2 % CREAM 923722 MUPIROCIN CALCIUM Inactive BACTROBAN 2 % CREAM apply to ear and nose twice daily BACTROBAN 2 % CREAM 201231 MUPIROCIN CALCIUM Inactive CEFDINIR 300 MG CAPS by mouth twice a day CEFDINIR 300 MG CAPS 706707 CEFDINIR Inactive TOLTERODINE TARTRATE 2 MG TABS 1 pill twice daily, for bladder TOLTERODINE TARTRATE 2 MG TABS 995419 TOLTERODINE TARTRATE Inactive ZYPREXA 15 MG TABS Take 1 tablet by mouth daily ZYPREXA 15 MG TABS 614543 OLANZAPINE Inactive METFORMIN HCL ER 500 MG [id number] Take three tablets by mouth everyday METFORMIN HCL ER 500 MG RJ31S-EWK METFORMIN HCL Inactive DETROL LA 4 MG WA32P-HSF Take 1 tablet by mouth daily DETROL LA 4 MG NJ99P-VQR TOLTERODINE TARTRATE Inactive METOPROLOL SUCCINATE 100 MG VC53B-HTJ 1 by mouth daily for blood pressure METOPROLOL SUCCINATE 100 MG PJ40D-RHZ METOPROLOL SUCCINATE Inactive TOPROL XL 100 MG DJ92M-CHA 1 @ HS TOPROL XL 100 MG OC44U-RBY METOPROLOL SUCCINATE Inactive HYDROCODONE-ACETAMINOPHEN 5-325 MG TABS take one tablet by mouth every four hours as needed for pain HYDROCODONE-ACETAMINOPHEN 5-325 MG TABS 887281 HYDROCODONE-ACETAMINOPHEN Inactive HYDROCODONE-ACETAMINOPHEN 7.5-325 MG TABS 1 four times a day as needed for pain HYDROCODONE-ACETAMINOPHEN 7.5-325 MG TABS 353330 HYDROCODONE-ACETAMINOPHEN Inactive GUAIFENESIN 600 MG YW95E-FQI 1 tablet by mouth twice daily if needed for cough GUAIFENESIN 600 MG OL17W-ZUG GUAIFENESIN Inactive ORPHENADRINE CITRATE ER 100 MG LO74T-QNC 1 every 12 hr. as needed ORPHENADRINE CITRATE ER 100 MG NQ08O-ODJ ORPHENADRINE CITRATE Inactive UROXATRAL 10 MG JW51M-VDS Take 1 tablet by mouth daily UROXATRAL 10 MG HX73N-MPA ALFUZOSIN HCL Inactive ACCU-CHEK ROSA INVITR STRP use strips with device to check blood sugars 3 times daily ACCU-CHEK ROSA INVITR STRP GLUCOSE BLOOD Inactive LEVEMIR 100 UNIT/ML SOLN 90 units SQ qHS LEVEMIR 100 UNIT/ML SOLN INSULIN DETEMIR Inactive FLUTICASONE PROPIONATE 50 MCG/ACT SUSP 2 sprays each nostril qDay x 30 days FLUTICASONE PROPIONATE 50 MCG/ACT SUSP 690427 FLUTICASONE PROPIONATE Inactive AMITIZA 24 MCG ORAL CAPS Take one capsule BID for constipation. AMITIZA 24 MCG ORAL CAPS LUBIPROSTONE Inactive ACCU-CHEK ROSA UZMA Use device to check blood sugars ACCU-CHEK ROSA UZMA BLOOD GLUCOSE MONITORING SUPPL Inactive LOVAZA 1 GM CAPS 4 daily (for triglycerides) LOVAZA 1 GM CAPS 950330 JMHIL-8-NPCS ETHYL ESTERS Inactive NOVOFINE 32G X 6 [...] EQL TRUETEST TEST STRP GLUCOSE BLOOD Inactive Immunizations Vaccine Administration Date Value Standard [...] Fluvirin, Fluarix, Agriflu(>=18 yo)) Fluzone (>3 yrs.) [PVI330] Influenza, seasonal, injectable pneumococcal immunization administered Pneumovax [...] MICROALBUMIN - Chemistry sodium, serum 137 mmol/L 024-936 1174/05/19 potassium, serum 5.2 mmol/L 3.5-5.2 chloride, serum [...] Panel - Chemistry sodium, serum 137 mmol/L 378-340 6207/10/12 potassium, serum 4.8 mmol/L 3.5-5.2 chloride, serum 102 mmol/L 98-107 carbon dioxide, venous blood 27.6 mmol/L 21.0-32.0 blood glucose 168 mg/dL 65-110 calcium, serum 9.0 mg/dL 8.5-10.1 urea nitrogen, blood 15 mg/dL 7-18 creatinine, serum 1.04 mg/dL 0.55-1.30 sodium, serum 138 mmol/L 819-506 5406/11/11 potassium, serum 4.7 mmol/L 3.5-5.2 chloride, serum [...] % 11.6-14.8 platelet count 252 10^3/MM^3 10*3/mm3 948-401 7876/10/12 leukocyte count, blood 5.8 10^3/MM^3 10*3/mm3 4.6-10.2 [...] 240 10^3/MM^3 10*3/mm3 142-424 Lab Report: Chlamydia/GC APTIMA/[id number], HIV-1/2 Agn/Dominga/62097, RPR (DX) W ... - Chemistry hepatitis B surface antigen NON-REACTIVE NON-REACTIVE Lab Report: Chlamydia/GC APTIMA/01867, HIV-1/2 Agn/Dominga/71869, RPR (DX) W ... - Lab chlamydia DNA probe NOT DETECTED NOT DETECTED Lab Report: Chlamydia/GC APTIMA/75877, HIV-1/2 Agn/Dominga/21446, RPR (DX) W ... - Microbiology Neisseria gonorrhoeae DNA probe NOT DETECTED NOT DETECTED Lab Report: Chlamydia/GC APTIMA/90982, HIV-1/2 Agn/Dominga/32510, RPR (DX) W ... - Serology rapid plasma reagin antibody titer NON-REACTIVE NON-REACTIVE Lab Report: HGBA1C - Chemistry hemoglobin A1C, blood, as % of total hemoglobin 6.1 % 4.3-6.0 hemoglobin A1C, blood, as % of total hemoglobin 6.3 % 4.3-6.0 Lab Report: Lipid Panel, HEPATIC PANEL, MICROALBUMIN, CBC - Chemistry cholesterol, serum 131 mg/dL 652-442 9692/06/03 triglyceride, serum, fasting 383 mg/dL 30-200 HDL [...] 4.7 mg/dL 2.6-7.2 cholesterol, serum 142 mg/dL 378-340 6312/06/26 triglyceride, serum, fasting 272 mg/dL 30-200 HDL [...] negative Encounters Code Encounter Date Provider Facility CPT-27000 Level 3 Est. Patient 14:39:00 PRODUCTION LINE MANAGER Vanessa Hickey MD [facility]-09221 Level 2 Est. Patient 18:43:34 CDT Mima Erazo [facility] CPT-99247 Level 3 Est. Patient 16:22:09 CDT Cherelle Washingtonluciana [facility] CPT-90562 Level 4 Est. Patient 17:55:14 CDT Mima Erazo [facility] CPT-55479 Level 2 Est. Patient 17:13:21 CDT Alina Castaneda MD PhD [facility] CPT-00144 Level 3 Est. Patient 14:46:15 CDT Vanessa Hickey MD [facility]-38833 Level 3 Est. Patient 09:34:56 CDT Alina Castaneda MD PhD [facility]66304 Level 3 Est. Patient 21:40:19 CDT Mima Erazo [facility]-33976 Level 3 Est. Patient 09:26:[address] [facility]-90541 Level 3 Est. Patient 12:36:43 CDT Vanessa Hickey MD [facility]-86014 Level 3 Est. Patient 12:57:49 CDT Vanessa Hickey MD [facility]-60982 Level 3 Est. Patient 00:28:25 CDT Alina Castaneda MD [facility]33498 Level 2 Est. Patient 12:52:14 CDT Alina Castaneda MD [facility]49609 Level 3 Est. Patient 11:51:18 PRODUCTION LINE MANAGER Alina Castaneda MD [facility]48184 Level 3 Est. Patient 10:09:22 PRODUCTION LINE MANAGER Alina Castaneda MD [facility]85869 Level 3 Est. Patient 14:36:26 PRODUCTION LINE MANAGER Marvel Charles [facility]-79395 Level 3 Est. Patient 13:34:47 PRODUCTION LINE MANAGER Alina Castaneda MD [facility]60645 Level 3 Est. Patient 19:52:08 PRODUCTION LINE MANAGER Alina Castaneda MD [facility]71409 Level 3 Est. Patient 10:01:51 PRODUCTION LINE MANAGER Marvel Charles [facility]-45787 Level 3 Est. Patient 21:54:06 CDT Vanessa Hickey MD [facility]-43085 Level 3 Est. Patient 08:54:46 CDT Alina Castaneda MD [facility]10344 Level 3 Est. Patient 09:32:11 CDT Marvel Charles [facility]51993 Level 3 Est. Patient 12:02:49 CDT Alina Castaneda MD [facility]70390 Level 3 Est. Patient 19:17:33 CDT Alina Castaneda MD [facility]72249 Level 3 Est. Patient 13:19:10 CDT Maliheh Ziglari [facility]-52236 Level 3 Est. Patient 08:20:05 CDT Alina Castaneda MD [facility]-37629 Level 3 Est. Patient 15:17:18 CDT Alina Castaneda MD Former[facility] named [facility]-15053 Level 3 Est. Patient 14:25:36 PRODUCTION LINE MANAGER Marvel Charles [facility]-66679 Level 3 Est. Patient 10:09:15 PRODUCTION LINE MANAGER Marvel Charles [facility]-17132 Level 3 Est. Patient 21:28:43 CDT Alina Castaneda MD Former[facility] named [facility]-84735 Level 3 Est. Patient 15:20:11 [facility] 4 Est. Patient 19:08:12 CDT Alina Castaneda MD Former[facility] named [facility]-14000 Level 3 Est. Patient 15:06:39 CDT Marvel Charles [facility]-87369 Level 4 Est. Patient 17:48:15 CDT Alina Castaneda MD Former[facility] named [facility]-25504 Level 3 Est. Patient 14:53:49 CDT Alina Castaneda MD Former[facility] named [facility]-21699 Level 3 Est. Patient 09:35:16 CDT Alina Castaneda MD Former[facility] named [facility]-02937 Level 3 Est. Patient 12:23:22 CDT Alina Castaneda MD Former[facility] named [facility]-92663 Level 3 Est. Patient 16:19:15 CDT Alina Castaneda MD Former[facility] named [facility]-25342 Level 3 Est. Patient 21:39:56 PRODUCTION LINE MANAGER Alina Castaneda MD Former[facility] named [facility]-84906 Level 4 Est. Patient 14:12:56 PRODUCTION LINE MANAGER Alina Castaneda MD Former[facility] named [facility]-92337 Level 2 Est. Patient 15:34:57 PRODUCTION LINE MANAGER Alina Castaneda MD Former[facility] named [facility]-82709 Level 3 Est. Patient 12:17:04 PRODUCTION LINE MANAGER Alina Castaneda MD Former[facility] named [facility]-73379 Level 3 Est. Patient 09:18:18 PRODUCTION LINE MANAGER Marvel Charles [facility]-63156 Level 2 Est. Patient 21:50:24 CDT Alina Castaneda MD [facility] named [facility]-38731 Level 3 Est. Patient 09:17:28 CDT Marvel Charles [facility]-95210 Level 4 Est. Patient 18:54:02 CDT Alina Castaneda MD Formerly named [facility]-68552 Level 3 Est. Patient 10:47:10 CDT Alina Castaneda MD Formerly named [facility]-60114 Level 3 Est. Patient 09:22:20 CDT Marvel Charles [facility]-03174 Level 3 Est. Patient 16:39:43 CDT Marvel Charles [facility]-87342 Level 3 Est. Patient 16:05:16 CDT Alina Castaneda MD Formerly named [facility]-48837 Level 3 Est. Patient 00:29:15 CDT Alina Castaneda MD [facility]51539 Level 3 Est. Patient 10:49:22 PRODUCTION LINE MANAGER Marvel Charles [facility]-12164 Level 3 Est. Patient 21:30:19 PRODUCTION LINE MANAGER Alina Castaneda MD PhD [facility] CPT-47378 Level 4 Est. Patient 17:04:11 PRODUCTION LINE MANAGER [place] [facility] CPT-80840 Level 3 Est. Patient 15:34:11 PRODUCTION LINE MANAGER [place] [facility] CPT-91670 Level 2 Est. Patient 12:51:58 PRODUCTION LINE MANAGER Alina Castaneda MD PhD [facility] CPT-94364 Level 3 Est. Patient 13:20:01 PRODUCTION LINE MANAGER Alina Castaneda MD PhD [facility] CPT-69182 Level 3 Est. Patient 09:23:35 CDT Alina Castaneda MD PhD [facility] Procedures Code Procedure Name Date Entry Date Standard Description CPT-15639 Bladder Scan 14:39:01 PRODUCTION LINE MANAGER CPT-TCMM Transitional Care Mgmt-Moderate 10:30:19 PRODUCTION LINE MANAGER CPT-52667 Bladder Scan 12:36:44 CDT CPT-74293 Bladder Scan 21:54:06 CDT CPT-G0008 Administration of Influenza Virus Vaccine 13:05:26 CDT CPT-04712 Fluzone Quadrivalent Intramuscular Suspension 0.5 ML 13: 05:26 CDT CPT-53940 Administration single or combination vaccine inc oral 11 :49:51 CDT CPT-11294 Pneumovax 11:49:51 CDT CPT-52150 Ribs unilateral 2V 12:37:22 PRODUCTION LINE MANAGER CPT-00509 Chest 2V Frontal and Lat 17:15:26 CDT CPT-31479 Abx/Therapy Injection 18:54:02 CDT CPT-J0696 Rocephin 1000 mg (Ceftriaxone) 16:00:32 CDT CPT-52993 Chest 2V Frontal and Lat 15:26:45 CDT CPT-38384 Chest 2V Frontal and Lat 10:23:27 CDT CPT-85882 Venipuncture Draw Fee 10:11:00 CDT CPT-64540 Administration single or combination vaccine inc oral 11 :56:38 CDT CPT-85895 Influenza split virus > age 3 11:56:38 CDT CPT-21569 Venipuncture Draw Fee 08:49:54 PRODUCTION LINE MANAGER CPT-66981 EKG Trac and Interp 17:54:19 PRODUCTION LINE MANAGER
--- OUTSIDE RECORDS SUMMARY | 2018-07-02 19:13 | XMS REPORT | Clinical Summary ---
Author Author Admin, TERELL Organization [facility] Address Unknown Phone Unavailable 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 Erazo PHARMACEUTICAL LABORATORY TECHNICIAN Benign paroxysmal positional vertigo Vertigo, benign paroxysmal position 386.11 Inactive Mima Erazo PHARMACEUTICAL LABORATORY TECHNICIAN Benign paroxysmal positional vertigo High-risk sexual behavior V69.2 Active Alina Castaneda MD PhD High-risk sexual behavior Erectile dysfunction 302.72 Active Alina Castaneda MD PhD Psychosexual dysfunction with inhibited sexual excitement Constipation 564.00 Active Alina Castaneda MD PhD Constipation, unspecified Skin lesion 709.9 Active Alina Castaneda MD PhD Unspecified disorder of skin and subcutaneous tissue Malaise and fatigue 780.79 Active Cherelle Speaks PHARMACEUTICAL LABORATORY TECHNICIAN Other malaise and fatigue Diarrhea 787.91 Active Cherelle Speaks PHARMACEUTICAL LABORATORY TECHNICIAN Diarrhea PHARYNGITIS 462 Active Cherelle Speaks PHARMACEUTICAL LABORATORY TECHNICIAN Acute pharyngitis Colitis 558.9 Active Mima Erazo PHARMACEUTICAL LABORATORY TECHNICIAN Other and unspecified noninfectious gastroenteritis and colitis WOUND, OPEN, NOSE ICD-873.20 Inactive Alina Castaneda MD PhD DIABETES, TYPE 2 ICD-250.00 Inactive Alina Castaneda MD PhD HYPERTENSION ICD-401.9 Inactive Alina Castaneda MD PhD URI ICD-465.9 Inactive Alina Castaneda MD PhD CHEST PAIN ICD-786.50 Inactive Alina Castaneda MD PhD FH STROKE ICD-V17.1 Inactive Marvel Charles PLUMBER MAINTENANCE FATIGUE ICD-780.79 Inactive Alina Castaneda MD PhD DIABETES MELLITUS, TYPE II, UNCONTROLLED ICD-250.02 Inactive Marvel MARROQUIN UNSPECIFIED TACHYCARDIA ICD-785.0 Inactive Alina Castaneda MD PhD ABNORMAL HEART RHYTHMS ICD-427.9 Inactive Alina Castaneda MD PhD PROBLEMS RELATED TO HIGH-RISK SEXUAL BEHAVIOR ICD-V69.2 Inactive Ailna Castaneda MD PhD CHEST COUGH ICD-786.2 Inactive [...] mouth twice daily, for constipation DOCUSATE SODIUM 39169133559 No Longer Active Mima Erazo APRN Active FLONASE ALLERGY RELIEF 50 MCG/ACT NASAL SUSP One spray each nostril BID x 1 week then daily FLUTICASONE PROPIONATE 43944425779 Active Mimacecily Erazo APRN Active BD PEN NEEDLE MINI U/F 31G X 5 MM MISC 4 a day INSULIN PEN NEEDLE 80763927696 Active Mallashondaeh Ziglari PLUMBER MAINTENANCE Active AMITIZA 24 MCG ORAL CAPS Take one capsule BID for constipation LUBIPROSTONE 36124575825 Active Mimacecily Erazo APRN Active LEVEMIR FLEXTOUCH 100 UNIT/ML SC SOPN 75 units SQ each evening, for diabetes INSULIN DETEMIR 47525350040 Active Mima Erazo APRN Active TRUEPLUS LANCETS 30G MISC 3 a day LANCETS 87826749690 Active Mallashondaeh Ziglari PLUMBER MAINTENANCE Active TOLTERODINE TARTRATE 2 MG TABS 1 pill twice daily, for bladder TOLTERODINE TARTRATE 49623321361 No Longer Active Vanessa Hickey MD Active AMITIZA 24 MCG ORAL CAPS Take one capsule BID for constipation. LUBIPROSTONE 16888139785 No Longer Active Vanessa Hickey MD Active LOMOTIL 2.5-0.025 MG ORAL TABS take 1-2 tabs PO after each stool, no more than 8 in 24 hours DIPHENOXYLATE-ATROPINE 94481112010 Active Grace Nascimento RMA Active FLUVOXAMINE MALEATE 100 MG ORAL TABS take one tab every AM et HS, and take 1/ 2 tab at noon FLUVOXAMINE MALEATE 16291133453 Active Gracekailee Nascimento RMA Active METOPROLOL SUCCINATE 100 MG [id number] 1 by mouth daily for blood pressure METOPROLOL SUCCINATE 52511158760 No Longer Active Grace Nascimento RMA Active METFORMIN HCL ER 500 MG [id number] Take three tablets by mouth everyday METFORMIN HCL 02048032476 No Longer Active Grace Nascimento RMA Active LOVAZA 1 GM CAPS 4 daily (for triglycerides) OMEGA-3- ACID ETHYL ESTERS 47582582816 No Longer Active Grace Nascimento RMA Active TRAZODONE HCL 100 MG ORAL TABS 1 tab by mouth for sleep TRAZODONE HCL 10850254638 No Longer Active Grace Nascimento RMA Active NOVOFINE 32G X 6 MM MISC use one four times per day INSULIN PEN NEEDLE 59469962850 No Longer Active Grace Nascimento RMA Active BACTROBAN 2 % CREAM Apply to affected area BID for up to 10 days MUPIROCIN CALCIUM 01382220593 No Longer Active Grace Nascimento RMA Active ZOFRAN 4 MG TABS 1 po q4hr PRN Nausea ONDANSETRON HCL 53086365024 Active Salina Han RMA Active KEFLEX 500 MG CAP 1 po BID x 7 days CEPHALEXIN 20682694180 No Longer Active Cherelle Avila APRN Active FLUVOXAMINE MALEATE 100 MG TABS Take one (1) tablet by mouth am, 1/2 at noon FLUVOXAMINE MALEATE 57861269719 No Longer Active Mima Erazo PHARMACEUTICAL LABORATORY TECHNICIAN Active CORICIDIN HBP CONGESTION/COUGH 10-200 MG ORAL CAPS Take as directed on box as needed for cold/flu symptoms DEXTROMETHORPHAN-GUAIFENESIN 63452622435 Active Cherelle Speaks PHARMACEUTICAL LABORATORY TECHNICIAN Active OMEGA-3 300 MG ORAL CAPS 4 caps by mouth daily OMEGA-3 FATTY ACIDS 86592339501 Active Mima Erazo PHARMACEUTICAL LABORATORY TECHNICIAN Active FLUVOXAMINE MALEATE 100 MG ORAL TABS Take 1/2 tab at noon FLUVOXAMINE MALEATE 69872734896 No Longer Active Cherelle Speaks PHARMACEUTICAL LABORATORY TECHNICIAN Active [facility] LUBRICANT EYE DROPS 0.4-0.3 % OPHTH SOLN POLYETHYL GLYCOL-PROPYL GLYCOL 48364824698 Active Mima Erazo PHARMACEUTICAL LABORATORY TECHNICIAN Active CLONAZEPAM 1 MG TABS 1/2 pill by mouth three times daily CLONAZEPAM 71972179495 Active Mason Loredo MD Active MIRALAX POWD 17g by mouth daily, for constipation POLYETHYLENE GLYCOL 3350 65209637144 Active Alina Castaneda MD PhD Active HYDROCODONE-ACETAMINOPHEN 5-325 MG TABS 2 tabs by mouth three times daily for pain HYDROCODONE-ACETAMINOPHEN 13209855322 Active Mima Erazo PHARMACEUTICAL LABORATORY TECHNICIAN Active HUMALOG KWIKPEN 100 UNIT/ML SC SOPN 20 units with breakfast, 10 units with lunch, 10 units with dinner, for diabetes INSULIN LISPRO (HUMAN ) 47923991820 Active Alina Castaneda MD PhD Active LATUDA 120 MG ORAL TABS 1 pill by mouth nightly LURASIDONE HCL 87040109756 Active Alina Castaneda MD PhD Active TRUETEST TEST STRP check blood sugars 3x/day GLUCOSE BLOOD 28888386832 Active Marvel Charles PLUMBER MAINTENANCE Active ACCU-CHEK ROSA UZMA Use device to check blood sugars BLOOD GLUCOSE MONITORING SUPPL 22399146473 No Longer Active Marvel Charles PLUMBER MAINTENANCE Active ACCU-CHEK ROSA INVITR STRP use strips with device to check blood sugars 3 times daily GLUCOSE BLOOD 53806043087 No Longer Active Marvel MARROQUIN Active VERAPAMIL HCL ER 180 MG ORAL CR-TABS 1 pill by mouth twice daily, for migraine prevention VERAPAMIL HCL 01279971565 Active CRYSTAL Rodrigues Active CYCLOBENZAPRINE HCL 10 MG TABS 1 tablet by mouth three times daily, scheduled CYCLOBENZAPRINE HCL 07692365893 No Longer Active Alina Castaneda MD PhD Active HUMALOG 100 UNIT/ML SOLN Take 20 units with breakfast, 10u with lunch and suppetr. INSULIN LISPRO (HUMAN) 70262456992 No Longer Active Alina Castaneda MD PhD Active TRUETEST TEST STRP check sugars 4x/day GLUCOSE BLOOD 68124860286 No Longer Active Alina Castaneda MD PhD Active MORPHINE SULFATE 30 MG TABS 1 pill by mouth twice daily, for pain MORPHINE SULFATE 17530381192 Active Mason Loredo MD Active ACYCLOVIR 400 MG ORAL TABS 1 pill three times daily x 5 days, for cold sore outbreak ACYCLOVIR 17741984655 No Longer Active Alina Castaneda MD PhD Active PENICILLIN V POTASSIUM 500 MG TABS 1 pill by mouth three times daily PENICILLIN V POTASSIUM 84225121840 No Longer Active Alina Castaneda MD PhD Active UROXATRAL 10 MG [id number] Take 1 tablet by mouth daily ALFUZOSIN HCL 02105501450 No Longer Active Alina Castaneda MD PhD Active THIOTHIXENE 5 MG CAPS by mouth twice a day THIOTHIXENE 93179115574 No Longer Active Alina Castaneda MD PhD Active ZYPREXA 7.5 MG TABS 1 at HS OLANZAPINE 86040444588 No Longer Active Alina Castaneda MD PhD Active BD INSULIN SYRINGE 28G X 1/2" 1 ML MISC 1 four times per day INSULIN SYRINGE-NEEDLE U-100 42057087303 Active Marvel MARROQUIN Active DETROL LA 4 MG MI72U-HUV Take 1 tablet by mouth daily TOLTERODINE TARTRATE 36637931422 No Longer Active Alina Castaneda MD PhD Active TERESE CONTOUR TEST STRP monitor blood sugars 3x/day GLUCOSE BLOOD 98397019692 No Longer Active Alina Castaneda MD PhD Active EQL TRUETEST TEST STRP Test blood sugar TID GLUCOSE BLOOD 00738273668 No Longer Active Alina Castaneda MD PhD Active FLUTICASONE PROPIONATE 50 MCG/ACT SUSP 2 sprays each nostril qDay x 30 days FLUTICASONE PROPIONATE 98760647755 No Longer Active Alina Castaneda MD PhD Active IBUPROFEN 200 MG TABS 1 Q 6 hr. PRN IBUPROFEN 06735062968 No Longer Active Alina Castaneda MD PhD Active NIACIN ER 500 MG CR-TABS 4 qHS (for triglycerides) NIACIN 26214729506 No Longer Active Alina Castaneda MD PhD Active ALFUZOSIN HCL ER 10 MG [id number] 1 tablet daily ALFUZOSIN HCL 59616383846 Active CRYSTAL Rodrigues Active SAPHRIS 5 MG SUBL by mouth twice a day ASENAPINE MALEATE 52211680656 No Longer Active Marvel MARROQUIN Active ACETAMINOPHEN 500 MG TABS 2 Q 6 hr. PRN ACETAMINOPHEN 53266322514 No Longer Active Marvel MARROQUIN Active ORPHENADRINE CITRATE ER 100 MG [id number] 1 every 12 hr. as needed ORPHENADRINE CITRATE 52920662354 No Longer Active Alina Castaneda MD PhD Active NIACIN CR 500 MG CR-TABS 2 qHS NIACIN 15146898968 No Longer Active Alina Castaneda MD PhD Active AMOXICILLIN 500 MG CAPS 2 po BID x 10 days AMOXICILLIN 98940556304 No Longer Active Alina Castaneda MD PhD Active HYDROCODONE-ACETAMINOPHEN 7.5-325 MG TABS 1 four times a day as needed for pain HYDROCODONE-ACETAMINOPHEN 66703668387 No Longer Active Alina Castaneda MD PhD Active DOXEPIN HCL 10 MG CAPS Take 1 tablet by mouth daily DOXEPIN HCL 29807176079 No Longer Active Salina Han A Active NAVANE 10 MG CAPS 1/2 tablet twice a day THIOTHIXENE No Longer Active Salina Han A Active CYCLOBENZAPRINE HCL 10 MG TABS 1/2 tablet by mouth every 8 hours as needed for muscle spasms CYCLOBENZAPRINE HCL 09418684927 No Longer Active Alina Castaneda MD PhD Active BACTROBAN 2 % CREAM apply to ear and nose twice daily MUPIROCIN CALCIUM 00797680414 No Longer Active Alina Castaneda MD PhD Active HYDROCODONE-ACETAMINOPHEN 5-325 MG TABS take one tablet by mouth every four hours as needed for pain HYDROCODONE-ACETAMINOPHEN 31661839284 No Longer Active Alina Castaneda MD PhD Active ZOLPIDEM TARTRATE 10 MG TABS take at bedtime ZOLPIDEM TARTRATE 53840030429 Active Alina Castaneda MD PhD Active ZYPREXA 5 MG TABS take one tablet by mouth every evening OLANZAPINE 65524078560 No Longer Active Alina Castaneda MD PhD Active ALBUTEROL SULFATE 0.083 % NEBU SOLN one vial per nebulizer TID and PRN cough/ soa ALBUTEROL SULFATE 38076675593 No Longer Active Alina Castaneda MD PhD Active GUAIFENESIN 600 MG LI75C-PPP 1 tablet by mouth twice daily if needed for cough GUAIFENESIN 19142081513 No Longer Active Marvel MARROQUIN Active AZITHROMYCIN 500 MG SOLR 1 po q day AZITHROMYCIN 44035598690 No Longer Active Alina Castaneda MD PhD Active PROMETHAZINE-CODEINE 6.25-10 MG/5ML SYRP 1 tsp po q 6 hours prn cough PROMETHAZINE-CODEINE 63725923650 No Longer Active Alina Castaneda MD PhD Active CEFDINIR 300 MG CAPS by mouth twice a day CEFDINIR 69970412024 No Longer Active Alina Castaneda MD PhD Active METFORMIN HCL 500 MG [id number] Take 3 tablets by mouth everyday METFORMIN HCL 05529966657 No Longer Active Alina Castaneda MD PhD Active LEVEMIR 100 UNIT/ML SOLN 90 units SQ qHS INSULIN DETEMIR 42687628091 No Longer Active Marvel MARROQUIN Active TOPROL XL 100 MG [id number] 1 @ HS METOPROLOL SUCCINATE 08459609651 No Longer Active Marvel MARROQUIN Active ALLOPURINOL 300 MG TABS Take one by mouth daily ALLOPURINOL 27771873892 Active Mima Erazo PHARMACEUTICAL LABORATORY TECHNICIAN Active ZYPREXA 10 MG TABS Take one by mouth daily OLANZAPINE 46818106981 No Longer Active Alina Castaneda MD PhD Active NOVOLOG 100 UNIT/ML SOLN 40 units with every meal INSULIN ASPART 86668240064 No Longer Active Alina Castaneda MD PhD Active VERAPAMIL HCL CR 120 MG TAB CR 1 qPM VERAPAMIL HCL 20110980639 No Longer Active Salina ROJAS Active ZYPREXA 15 MG TABS Take 1 tablet by mouth daily OLANZAPINE 19662488843 No Longer Active Marvel MARROQUIN Active LISINOPRIL 20 MG TABS 1 BID LISINOPRIL 98743988943 Active Alina Castaneda MD PhD Active ALBUTEROL SULFATE (2.5 MG/3ML) 0.083% NEBU 1 neb tid and prn cough ALBUTEROL SULFATE 89708540822 No Longer Active Alina Castaneda MD PhD Active TRAVATAN Z 0.004 % SOLN 1 gtt each eye daily TRAVOPROST 37880664575 Active CRYSTAL Suarez Active LANTUS 100 UNIT/ML SOLN 60 units sq q hs INSULIN GLARGINE 03431782538 No Longer Active CRYSTAL uSarez Active ALBUTEROL SULFATE (2.5 MG/3ML) 0.083% NEBU 1 neb tid and prn cough ALBUTEROL SULFATE (2.5 MG/3ML) 0.083% NEBU 300297 ALBUTEROL SULFATE Inactive ZYPREXA 15 MG TABS Take 1 tablet by mouth daily ZYPREXA 15 MG TABS 135146 OLANZAPINE Inactive VERAPAMIL HCL CR 120 MG TAB CR 1 qPM VERAPAMIL HCL CR 120 MG TAB CR VERAPAMIL HCL Inactive ZYPREXA 10 MG TABS Take one by mouth daily ZYPREXA 10 MG TABS 131969 OLANZAPINE Inactive TOPROL XL 100 MG [id number] 1 @ HS TOPROL XL 100 MG SF24S-THO METOPROLOL SUCCINATE Inactive LEVEMIR 100 UNIT/ML SOLN 90 units SQ qHS LEVEMIR 100 UNIT/ML SOLN INSULIN DETEMIR Inactive PROMETHAZINE-CODEINE 6.25-10 MG/5ML SYRP 1 tsp po q 6 hours prn cough PROMETHAZINE-CODEINE 6.25-10 MG/5ML SYRP 001221 PROMETHAZINE- CODEINE Inactive GUAIFENESIN 600 MG WU73E-FCL 1 tablet by mouth twice daily if needed for cough GUAIFENESIN 600 MG [id number]-[id number] GUAIFENESIN Inactive ALBUTEROL SULFATE 0.083 % NEBU SOLN one vial per nebulizer TID and PRN cough/ soa ALBUTEROL SULFATE 0.083 % NEBU SOLN 590229 ALBUTEROL SULFATE Inactive ZYPREXA 5 MG TABS take one tablet by mouth every evening ZYPREXA 5 MG TABS 633300 OLANZAPINE Inactive HYDROCODONE-ACETAMINOPHEN 5-325 MG TABS take one tablet by mouth every four hours as needed for pain HYDROCODONE-ACETAMINOPHEN 5-325 MG TABS 189522 HYDROCODONE-ACETAMINOPHEN Inactive BACTROBAN 2 % CREAM apply to ear and nose twice daily BACTROBAN 2 % CREAM 340585 MUPIROCIN CALCIUM Inactive CYCLOBENZAPRINE HCL 10 MG TABS 1/2 tablet by mouth every 8 hours as needed for muscle spasms CYCLOBENZAPRINE HCL 10 MG TABS 583349 CYCLOBENZAPRINE HCL Inactive NAVANE 10 MG CAPS 1/2 tablet twice a day NAVANE 10 MG CAPS THIOTHIXENE Inactive DOXEPIN HCL 10 MG CAPS Take 1 tablet by mouth daily DOXEPIN HCL 10 MG CAPS 5963763 DOXEPIN HCL Inactive HYDROCODONE-ACETAMINOPHEN 7.5-325 MG TABS 1 four times a day as needed for pain HYDROCODONE-ACETAMINOPHEN 7.5-325 MG TABS 762255 HYDROCODONE-ACETAMINOPHEN Inactive NIACIN CR 500 MG CR-TABS 2 qHS NIACIN CR 500 MG CR- TABS NIACIN Inactive ORPHENADRINE CITRATE ER 100 MG [id number] 1 every 12 hr. as needed ORPHENADRINE CITRATE ER 100 MG [id number] ORPHENADRINE CITRATE Inactive ACETAMINOPHEN 500 MG TABS 2 Q 6 hr. PRN ACETAMINOPHEN 500 MG TABS 783899 ACETAMINOPHEN Inactive SAPHRIS 5 MG SUBL by mouth twice a day SAPHRIS 5 MG SUBL ASENAPINE MALEATE Inactive NIACIN ER 500 MG CR-TABS 4 qHS (for triglycerides) NIACIN ER 500 MG CR-TABS NIACIN Inactive IBUPROFEN 200 MG TABS 1 Q 6 hr. PRN IBUPROFEN 200 MG TABS 757292 IBUPROFEN Inactive FLUTICASONE PROPIONATE 50 MCG/ACT SUSP 2 sprays each nostril qDay x 30 days FLUTICASONE PROPIONATE 50 MCG/ACT SUSP 181773 FLUTICASONE PROPIONATE Inactive EQL TRUETEST TEST STRP Test blood sugar TID EQL TRUETEST TEST STRP GLUCOSE BLOOD Inactive TERESE CONTOUR TEST STRP monitor blood sugars 3x/day TERESE CONTOUR TEST STRP GLUCOSE BLOOD Inactive DETROL LA 4 MG [id number] Take 1 tablet by mouth daily DETROL LA 4 MG [id number]-SCZ TOLTERODINE TARTRATE Inactive ZYPREXA 7.5 MG TABS 1 at HS ZYPREXA 7.5 MG TABS 411389 OLANZAPINE Inactive THIOTHIXENE 5 MG CAPS by mouth twice a day THIOTHIXENE 5 MG CAPS 086260 THIOTHIXENE Inactive UROXATRAL 10 MG CG12U-LIN Take 1 tablet by mouth daily UROXATRAL 10 MG [id number] ALFUZOSIN HCL Inactive ACYCLOVIR 400 MG ORAL TABS 1 pill three times daily x 5 days, for cold sore outbreak ACYCLOVIR 400 MG ORAL TABS 167704 ACYCLOVIR Inactive TRUETEST TEST STRP check sugars 4x/day TRUETEST TEST STRP GLUCOSE BLOOD Inactive HUMALOG 100 UNIT/ML SOLN Take 20 units with breakfast, 10u with lunch and suppetr. HUMALOG 100 UNIT/ML SOLN INSULIN LISPRO ( HUMAN) Inactive CYCLOBENZAPRINE HCL 10 MG TABS 1 tablet by mouth three times daily, scheduled CYCLOBENZAPRINE HCL 10 MG TABS 323758 CYCLOBENZAPRINE HCL Inactive ACCU-CHEK ROSA INVITR STRP use strips with device to check blood sugars 3 times daily ACCU-CHEK ROSA INVITR STRP GLUCOSE BLOOD Inactive ACCU-CHEK ROSA UZMA Use device to check blood sugars ACCU-CHEK ROSA UZMA BLOOD GLUCOSE MONITORING SUPPL Inactive FLUVOXAMINE MALEATE 100 MG ORAL TABS Take 1/2 tab at noon FLUVOXAMINE MALEATE 100 MG ORAL TABS 310198 FLUVOXAMINE MALEATE Inactive FLUVOXAMINE MALEATE 100 MG TABS Take one (1) tablet by mouth am, 1/2 at noon FLUVOXAMINE MALEATE 100 MG TABS 141427 FLUVOXAMINE MALEATE Inactive BACTROBAN 2 % CREAM Apply to affected area BID for up to 10 days BACTROBAN 2 % CREAM 336863 MUPIROCIN CALCIUM Inactive NOVOFINE 32G X 6 MM MISC use one four times per day NOVOFINE 32G X 6 MM MISC INSULIN PEN NEEDLE Inactive TRAZODONE HCL 100 MG ORAL TABS 1 tab by mouth for sleep TRAZODONE HCL 100 MG ORAL TABS 714812 TRAZODONE HCL Inactive LOVAZA 1 GM CAPS 4 daily (for triglycerides) LOVAZA 1 GM CAPS 575608 [id number]-7-UTKA ETHYL ESTERS Inactive METFORMIN HCL ER 500 MG VB96G-JTU Take three tablets by mouth everyday METFORMIN HCL ER 500 MG AC52M-ZJK METFORMIN HCL Inactive METOPROLOL SUCCINATE 100 MG VO04O-XGB 1 by mouth daily for blood pressure METOPROLOL SUCCINATE 100 MG FP08B-PEN METOPROLOL SUCCINATE Inactive AMITIZA 24 MCG ORAL CAPS Take one capsule BID for constipation. AMITIZA 24 MCG ORAL CAPS LUBIPROSTONE Inactive TOLTERODINE TARTRATE 2 MG TABS 1 pill twice daily, for bladder TOLTERODINE TARTRATE 2 MG TABS 439318 TOLTERODINE TARTRATE Inactive COLACE 100 MG CAPS 1 pill by mouth twice daily, for constipation COLACE 100 MG CAPS 3820986 DOCUSATE SODIUM Inactive CEFDINIR 300 MG CAPS by mouth twice a day CEFDINIR 300 MG CAPS 152412 CEFDINIR Inactive AZITHROMYCIN 500 MG SOLR 1 po q day AZITHROMYCIN 500 MG SOLR 70304855929 AZITHROMYCIN Inactive AMOXICILLIN 500 MG CAPS 2 po BID x 10 days AMOXICILLIN 500 MG CAPS 920307 AMOXICILLIN Inactive PENICILLIN V POTASSIUM 500 MG TABS 1 pill by mouth three times daily PENICILLIN V POTASSIUM 500 MG TABS 763122 PENICILLIN V POTASSIUM Inactive KEFLEX 500 MG CAP 1 po BID x 7 days KEFLEX 500 MG CAP 247235 CEPHALEXIN Inactive Immunizations Vaccine Administration Date Value [...] Fluvirin, Fluarix, Agriflu(>=18 yo)) Fluzone (>3 yrs.) [[id number]] Influenza, seasonal, injectable pneumococcal immunization administered Pneumovax [...] Panel - Chemistry sodium, serum 137 mmol/L 882-387 5946/10/12 potassium, serum 4.8 mmol/L 3.5-5.2 chloride, serum 102 mmol/L 98-107 carbon dioxide, venous blood 27.6 mmol/L 21.0-32.0 blood glucose 168 mg/dL 65-110 calcium, serum 9.0 mg/dL 8.5-10.1 urea nitrogen, blood 15 mg/dL 7-18 creatinine, serum 1.04 mg/dL 0.55-1.30 sodium, serum 138 mmol/L 262-097 4430/11/11 potassium, serum 4.7 mmol/L 3.5-5.2 chloride, serum [...] % 11.6-14.8 platelet count 240 10^3/MM^3 10*3/mm3 293-171 7283/11/11 leukocyte count, blood 9.6 10^3/MM^3 10*3/mm3 4.6-10.2 [...] Acid - Chemistry cholesterol, serum 187 mg/dL 499-472 8679/06/14 triglyceride, serum, fasting 246 mg/dL 30-200 HDL [...] 4.7 mg/dL 2.6-7.2 cholesterol, serum 142 mg/dL 960-155 0558/06/26 triglyceride, serum, fasting 272 mg/dL 30-200 HDL [...] negative Encounters Code Encounter Date Provider Facility CPT-65047 Level 3 Est. Patient 16:27:51 CDT Mima Erazo [facility] [place] [facility] [place]PT-62419 Level 3 Est. Patient 14:39:00 DISPLAY DESIGNER Vanessa Hickey MD [facility]-54032 Level 2 Est. Patient 18:43:34 CDT Mima Erazo [facility] CPT-80174 Level 3 Est. Patient 16:22:09 CDT Cherelle Avila [facility] [place] [facility] [place] CPT-69892 Level 4 Est. Patient 17:55:14 CDT Mima Erazo [facility] CPT-01211 Level 2 Est. Patient 17:13:21 CDT Alina Castaneda MD PhD [facility] CPT-77742 Level 3 Est. Patient 14:46:15 CDT Vanessa Hickey MD [facility]-60692 Level 3 Est. Patient 09:34:56 CDT Alina Castaneda MD PhD [facility]58098 Level 3 Est. Patient 21:40:19 CDT Mima Erazo [facility] CPT-46002 Level 3 Est. Patient 09:26:40 CDT Marvel Charles [facility]-55864 Level 3 Est. Patient 12:36:43 CDT Vanessa Hickey MD [facility]-54523 Level 3 Est. Patient 12:57:49 CDT Vanessa Hickey MD [facility]-10642 Level 3 Est. Patient 00:28:25 CDT Alina Castaneda MD [facility]08428 Level 2 Est. Patient 12:52:14 CDT Alina Castaneda MD [facility]26085 Level 3 Est. Patient 11:51:18 DISPLAY DESIGNER Alina Castaneda MD [facility] [place]77095 Level 3 Est. Patient 10:09:22 DISPLAY DESIGNER Alina Castaneda MD [facility]10779 Level 3 Est. Patient 14:36:26 DISPLAY DESIGNER Marvel Charles [facility]-14951 Level 3 Est. Patient 13:34:47 DISPLAY DESIGNER Alina Castaneda MD [facility] [place]41212 Level 3 Est. Patient 19:52:08 DISPLAY DESIGNER Alina Castaneda MD [facility] [place]35 Level 3 Est. Patient 10:01:51 DISPLAY DESIGNER Marvel Charles [facility]-64410 Level 3 Est. Patient 21:54:06 CDT Vanessa Hickey MD [facility]-51376 Level 3 Est. Patient 08:54:46 CDT Alina Castaneda MD [facility] [place]33855 Level 3 Est. Patient 09:32:11 CDT Marvel Charles [facility]10287 Level 3 Est. Patient 12:02:49 CDT Alina Castaneda MD [facility] [place]09859 Level 3 Est. Patient 19:17:33 CDT Alina Castaneda MD [facility]-25263 Level 3 Est. Patient 13:19:10 CDT Marvel Gurdeepajayestela [facility]-97011 Level 3 Est. Patient 08:20:05 CDT Alina Castaneda MD [facility]-38224 Level 3 Est. Patient 15:17:18 CDT Alina Castaneda MD [facility]-83577 Level 3 Est. Patient 14:25:36 [facility]-66172 Level 3 Est. Patient 10:09:15 DISPLAY [facility]50686 Level 3 Est. Patient 21:28:43 CDT Alina Castaneda MD [facility]-56806 Level 3 Est. Patient 15:20:11 [facility]-35678 Level 4 Est. Patient 19:08:12 CDT Alina Castaneda MD [facility]-21901 Level 3 Est. Patient 15:06:39 CDT Marvel Araceli [facility]-54966 Level 4 Est. Patient 17:48:15 CDT Alina Castaneda MD [facility]-13110 Level 3 Est. Patient 14:53:49 CDT Alina Castaneda MD [facility]-11973 Level 3 Est. Patient 09:35:16 CDT Alina Castaneda MD [facility]-23874 Level 3 Est. Patient 12:23:22 CDT Alina Castaneda MD [facility]-49283 Level 3 Est. Patient 16:19:15 CDT Alina Castaneda MD [facility]-89417 Level 3 Est. Patient 21:39:56 DISPLAY DESIGNER Alina Castaneda MD [facility]-35750 Level 4 Est. Patient 14:12:56 DISPLAY DESIGNER Alina Castaneda MD [facility]-93976 Level 2 Est. Patient 15:34:57 DISPLAY DESIGNER Alina Castaneda MD [facility]-55632 Level 3 Est. Patient 12:17:04 DISPLAY DESIGNER Alina Castaneda MD [facility]-77514 Level 3 Est. Patient 09:18:18 [facility]-47952 Level 2 Est. Patient 21:50:24 CDT Alina Castaneda MD [facility] [facility]-[address]25 Level 3 Est. Patient 09:17:28 CDT [facility]-12224 Level 4 Est. Patient 18:54:02 CDT Alina Castaneda MD [facility]-62068 Level 3 Est. Patient 10:47:10 CDT Alina Castaneda MD [facility]-11323 Level 3 Est. Patient 09:22:20 CDT [facility]-60636 Level 3 Est. Patient 16:39:43 CDT [facility]-38594 Level 3 Est. Patient 16:05:16 CDT Alina Castaneda MD [facility]-12944 Level 3 Est. Patient 00:29:15 CDT Alina Castaneda MD PhD [facility] CPT-09361 Level 3 Est. Patient 10:49:22 DISPLAY DESIGNER [facility] CPT-82968 Level 3 Est. Patient 21:30:19 DISPLAY DESIGNER Alina Castaneda MD PhD [facility] CPT-61571 Level 4 Est. Patient 17:04:11 DISPLAY DESIGNER [facility] CPT-16394 Level 3 Est. Patient 15:34:11 [facility] CPT-89909 Level 2 Est. Patient 12:51:58 DISPLAY DESIGNER Alnia Castaneda MD [facility] CPT-74391 Level 3 Est. Patient 13:20:01 DISPLAY DESIGNER Alina Castaneda MD PhD [facility] CPT-77275 Level 3 Est. Patient 09:23:35 CDT Alina Castaneda MD PhD [facility] Procedures Code Procedure Name Date Entry Date Standard Description CPT-32698 Bladder Scan 14:39:01 DISPLAY DESIGNER CPT-TCMM Transitional Care Mgmt-Moderate 10:30:19 DISPLAY DESIGNER CPT-15233 Bladder Scan 12:36:44 CDT CPT-19045 Bladder Scan 21:54:06 CDT CPT-G0008 Administration of Influenza Virus Vaccine 13:05:26 CDT CPT-35623 Fluzone Quadrivalent Intramuscular Suspension 0.5 ML 13: 05:26 CDT CPT-06718 Administration single or combination vaccine inc oral 11 :49:51 CDT CPT-93728 Pneumovax 11:49:51 CDT CPT-32511 Ribs unilateral 2V 12:37:22 DISPLAY DESIGNER CPT-58876 Chest 2V Frontal and Lat 17:15:26 CDT CPT-21174 Abx/Therapy Injection 18:54:02 CDT CPT-J0696 Rocephin 1000 mg (Ceftriaxone) 16:00:32 CDT CPT-93805 Chest 2V Frontal and Lat 15:26:45 CDT CPT-83657 Chest 2V Frontal and Lat 10:23:27 CDT CPT-01070 Venipuncture Draw Fee 10:11:00 CDT CPT-57864 Administration single or combination vaccine inc oral 11 :56:38 CDT CPT-39025 Influenza split virus > age 3 11:56:38 CDT CPT-66080 Venipuncture Draw Fee 08:49:54 DISPLAY DESIGNER CPT-48563 EKG Trac and Interp 17:54:19 DISPLAY DESIGNER
--- OUTSIDE RECORDS SUMMARY | 2018-07-02 19:16 | XMS REPORT | Clinical Summary ---
Author Author Admin, TERELL Organization [facility] Address Unknown Phone Unavailable Allergies, Adverse Reactions, 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 Erazo SHOPPING INSPECTOR Benign paroxysmal positional vertigo Vertigo, benign paroxysmal position 386.11 Inactive Mima Erazo SHOPPING INSPECTOR Benign paroxysmal positional vertigo High-risk sexual behavior V69.2 Active Alina Castaneda MD PhD High-risk sexual behavior Erectile dysfunction 302.72 Active Alina Castaneda MD PhD Psychosexual dysfunction with inhibited sexual excitement Constipation 564.00 Active Alina Castaneda MD PhD Constipation, unspecified Skin lesion 709.9 Active Alina Castaneda MD PhD Unspecified disorder of skin and subcutaneous tissue Malaise and fatigue 780.79 Active Cherelle Speaks SHOPPING INSPECTOR Other malaise and fatigue Diarrhea 787.91 Active Cherelle Speaks SHOPPING INSPECTOR Diarrhea PHARYNGITIS 462 Active Cherelle Speaks SHOPPING INSPECTOR Acute pharyngitis Colitis 558.9 Active Mima Erazo SHOPPING INSPECTOR Other and unspecified noninfectious gastroenteritis and colitis [...] atypical ICD-786.59 Inactive lAina Castaneda MD PhD Chest pain, atypical ICD-786.59 Inactive Alina Castaneda MD PhD Medication List Medication Instructions Start Date Stop Date Generic Name NDC Status Provider Patient Instruction TRUEPLUS LANCETS 30G MISC 3x a day LANCETS [id number] Active Marvel MARROQUIN Active TRUE METRIX METER W/DEVICE KIT Check blood sugars 3x/day BLOOD GLUCOSE MONITORING SUPPL 80274685900 Active Marvel MARROQUIN Active TRUE METRIX BLOOD GLUCOSE TEST INVITR STRP Check blood sugars 3x/day. GLUCOSE BLOOD 97373276878 Active Maljohn Mackenzieglari [place] [place] Active VITAMIN D 2000 UNIT ORAL CAPS Take one by mouth daily CHOLECALCIFEROL 59131571459 Active Mima Yokum SHOPPING INSPECTOR Active LATUDA 60 MG ORAL TABS Take one by mouth daily LURASIDONE HCL 58810507234 No Longer Active Mima Yokum SHOPPING INSPECTOR Active HUMALOG KWIKPEN 100 UNIT/ML SC SOPN sliding scale if needed INSULIN LISPRO (HUMAN) 45679875038 Active Mima Yokum SHOPPING INSPECTOR Active MORPHINE SULFATE 30 MG ORAL TABS by mouth twice a day MORPHINE SULFATE 59003016490 Active Mima Fierroum SHOPPING INSPECTOR Active TRAZODONE HCL 100 MG TABS 1 every night to prevent headaches TRAZODONE HCL 14745594717 Active Gabrielle Madl [employer] WORK[employer] Active LATUDA 60 MG ORAL TABS 1 tab daily LURASIDONE HCL 30070951610 Active Gabrielle Madl [employer] Active CLONAZEPAM 1 MG TABS 1 pill by mouth three times daily CLONAZEPAM 19172954028 Active Gabrielle Madl [employer] Active [facility] MILK OF MAGNESIA 400 MG/5ML ORAL SUSP 30ml by mouth bid prn MAGNESIUM HYDROXIDE 33788784688 Active Mason Loredo MD Active TYLENOL 8 HOUR 650 MG ORAL CR-TABS 1 tab QID prn ACETAMINOPHEN 65138462586 Active Mason Loredo MD Active MYLANTA GAS RELIEF MAXIMUM STR 125 MG ORAL CAPS 30cc every 4 hours prn 12/01 SIMETHICONE 46351191769 Active Mason Loredo MD Active IMODIUM A-D 2 MG ORAL TABS 1 tab QID as needed LOPERAMIDE HCL 54615284884 Active Mason Loredo MD Active FLUVOXAMINE MALEATE 50 MG ORAL TABS 1 tab by mouth daily FLUVOXAMINE MALEATE 88021144380 Active Mason Loredo MD Active TRAVATAN Z 0.004 % SOLN 1 gtt each eye daily TRAVOPROST 52469322631 No Longer Active Mason Loredo MD Active LISINOPRIL 20 MG TABS 1 BID LISINOPRIL 88437383552 No Longer Active Mason Loredo MD Active LEVEMIR FLEXTOUCH 100 UNIT/ML SC SOPN 60 units SQ each evening, for diabetes INSULIN DETEMIR 30049292449 Active Crystal Nicholson Active ZOLPIDEM TARTRATE 10 MG TABS take at bedtime ZOLPIDEM TARTRATE 35284646090 No Longer Active Mason Loredo MD Active HYDROCODONE-ACETAMINOPHEN 5-325 MG TABS 2 tabs by mouth three times daily for pain HYDROCODONE-ACETAMINOPHEN 29765170792 No Longer Active Mason Loredo MD Active ZOFRAN 4 MG TABS 1 po q4hr PRN Nausea ONDANSETRON HCL 89677870368 No Longer Active Mason Loredo MD Active LOMOTIL 2.5-0.025 MG ORAL TABS take 1-2 tabs PO after each stool, no more than 8 in 24 hours DIPHENOXYLATE-ATROPINE 94757726290 No Longer Active Mason Loredo MD Active COLACE 100 MG CAPS 1 pill by mouth twice daily, for constipation DOCUSATE SODIUM 74106932099 No Longer Active Mimacecily Erazo APRN Active FLONASE ALLERGY RELIEF 50 MCG/ACT NASAL SUSP One spray each nostril BID x 1 week then daily FLUTICASONE PROPIONATE 16610196009 Active Mimacecily Fierroum SHOPPING INSPECTOR Active BD PEN NEEDLE MINI U/F 31G X 5 MM MISC 4 a day INSULIN PEN NEEDLE 84995927210 Active Maljohn Ziglari [place] [place] Active AMITIZA 24 MCG ORAL CAPS Take one capsule BID for constipation LUBIPROSTONE 40293609109 Active Mima Yokum SHOPPING INSPECTOR Active TRUEPLUS LANCETS 30G MISC 3 a day LANCETS 44022009635 Active Maljohn Ziglari [place] Active TOLTERODINE TARTRATE 2 MG TABS 1 pill twice daily, for bladder TOLTERODINE TARTRATE 13868615562 No Longer Active Vanessa Hickey MD Active AMITIZA 24 MCG ORAL CAPS Take one capsule BID for constipation. LUBIPROSTONE 98618747400 No Longer Active Vanessa Hickey MD Active FLUVOXAMINE MALEATE 100 MG ORAL TABS take one tab every AM et HS, and take 1/ 2 tab at noon FLUVOXAMINE MALEATE 70567613195 Active Grace ROJAS Active METOPROLOL SUCCINATE 100 MG [id number] 1 by mouth daily for blood pressure METOPROLOL SUCCINATE 53850543893 No Longer Active Grace Azam RMA Active METFORMIN HCL ER 500 MG [id number] Take three tablets by mouth everyday METFORMIN HCL 66478088010 No Longer Active Grace Azam RMA Active LOVAZA 1 GM CAPS 4 daily (for triglycerides) OMEGA-3- ACID ETHYL ESTERS 86209973069 No Longer Active Grace Azam RMA Active TRAZODONE HCL 100 MG ORAL TABS 1 tab by mouth for sleep TRAZODONE HCL 75410755205 No Longer Active Grace Azam RMA Active NOVOFINE 32G X 6 MM MISC use one four times per day INSULIN PEN NEEDLE 60488214732 No Longer Active Grace Azam RMA Active BACTROBAN 2 % CREAM Apply to affected area BID for up to 10 days MUPIROCIN CALCIUM 83116459660 No Longer Active Grace Azam RMA Active KEFLEX 500 MG CAP 1 po BID x 7 days CEPHALEXIN 73102716555 No Longer Active Cherelle Avila SHOPPING INSPECTOR Active FLUVOXAMINE MALEATE 100 MG TABS Take one (1) tablet by mouth am, 1/2 at noon FLUVOXAMINE MALEATE 51286674135 No Longer Active Mima Erazo APRN Active CORICIDIN HBP CONGESTION/COUGH 10-200 MG ORAL CAPS Take as directed on box as needed for cold/flu symptoms DEXTROMETHORPHAN-GUAIFENESIN 78406743954 Active Cherelle Avila SHOPPING INSPECTOR Active OMEGA-3 300 MG ORAL CAPS 4 caps by mouth daily OMEGA-3 FATTY ACIDS 86239273568 Active Mima Erazo SHOPPING INSPECTOR Active FLUVOXAMINE MALEATE 100 MG ORAL TABS Take 1/2 tab at noon FLUVOXAMINE MALEATE 38184434010 No Longer Active Cherelle Avila SHOPPING INSPECTOR Active [facility] LUBRICANT EYE DROPS 0.4-0.3 % OPHTH SOLN POLYETHYL GLYCOL-PROPYL GLYCOL 13430826147 Active Mimacecily Erazo APRN Active MIRALAX POWD 17g by mouth daily, for constipation POLYETHYLENE GLYCOL 3350 99207481079 Active Alina Castaneda MD PhD Active TRUETEST TEST STRP check blood sugars 3x/day GLUCOSE BLOOD 42271439417 Active Maljohn Ziglari [place] [place] Active ACCU-CHEK ROSA UZMA Use device to check blood sugars BLOOD GLUCOSE MONITORING SUPPL 45094186543 No Longer Active Maliheh Ziglari [place] Active ACCU-CHEK ROSA INVITR STRP use strips with device to check blood sugars 3 times daily GLUCOSE BLOOD 00161667900 No Longer Active Mallashondaeh 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 [place] Active VERAPAMIL HCL ER 180 MG ORAL CR-TABS 1 pill by mouth twice daily, for migraine prevention VERAPAMIL HCL 78232148411 Active Mima Erazo SHOPPING INSPECTOR Active CYCLOBENZAPRINE HCL 10 MG TABS 1 tablet by mouth three times daily, scheduled CYCLOBENZAPRINE HCL 02296401010 No Longer Active Alina Castaneda MD PhD Active HUMALOG 100 UNIT/ML SOLN Take 20 units with breakfast, 10u with lunch and suppetr. INSULIN LISPRO (HUMAN) 18622002472 No Longer Active Alina Castaneda MD PhD Active TRUETEST TEST STRP check sugars 4x/day GLUCOSE BLOOD 71275011478 No Longer Active Alina Castaneda MD PhD Active MORPHINE SULFATE 30 MG TABS 1 pill by mouth twice daily, for pain MORPHINE SULFATE 18680359624 No Longer Active Mason Loredo MD Active ACYCLOVIR 400 MG ORAL TABS 1 pill three times daily x 5 days, for cold sore outbreak ACYCLOVIR 81585738815 No Longer Active Alina Castaneda MD PhD Active PENICILLIN V POTASSIUM 500 MG TABS 1 pill by mouth three times daily PENICILLIN V POTASSIUM 77744044256 No Longer Active Alina Castaneda MD PhD Active UROXATRAL 10 MG [id number] Take 1 tablet by mouth daily ALFUZOSIN HCL 20800461551 No Longer Active Alina Castaneda MD PhD Active THIOTHIXENE 5 MG CAPS by mouth twice a day THIOTHIXENE 44908716833 No Longer Active Alina Castaneda MD PhD Active ZYPREXA 7.5 MG TABS 1 at HS OLANZAPINE 42097297223 No Longer Active Alina Castaneda MD PhD Active BD INSULIN SYRINGE 28G X 1/2" 1 ML MISC 1 four times per day INSULIN SYRINGE-NEEDLE U-100 31485919050 Active Maljohn Ziglari [place] [place] Active DETROL LA 4 MG [id number]-SPR Take 1 tablet by mouth daily TOLTERODINE TARTRATE 45326292934 No Longer Active Alina Castaneda MD PhD Active TERESE CONTOUR TEST STRP monitor blood sugars 3x/day GLUCOSE BLOOD 82760128332 No Longer Active Alina Castaneda MD PhD Active EQL TRUETEST TEST STRP Test blood sugar TID GLUCOSE BLOOD 29091643513 No Longer Active Alina Castaneda MD PhD Active FLUTICASONE PROPIONATE 50 MCG/ACT SUSP 2 sprays each nostril qDay x 30 days FLUTICASONE PROPIONATE 16044849884 No Longer Active Alina Castaneda MD PhD Active IBUPROFEN 200 MG TABS 1 Q 6 hr. PRN IBUPROFEN 83796630241 No Longer Active Alina Castaneda MD PhD Active NIACIN ER 500 MG CR-TABS 4 qHS (for triglycerides) NIACIN 30223855831 No Longer Active Alina Castaneda MD PhD Active ALFUZOSIN HCL ER 10 MG [id number]-VVG 1 tablet daily ALFUZOSIN HCL 54049004519 Active Mima Yokum SHOPPING INSPECTOR Active SAPHRIS 5 MG SUBL by mouth twice a day ASENAPINE MALEATE 40207643248 No Longer Active Marvel Mackenzieglari [place] Active ACETAMINOPHEN 500 MG TABS 2 Q 6 hr. PRN ACETAMINOPHEN 03853060569 No Longer Active Maliheh Ziglari [place] Active ORPHENADRINE CITRATE ER 100 MG [id number]-ZKY 1 every 12 hr. as needed ORPHENADRINE CITRATE 16599149470 No Longer Active Alina Castaneda MD PhD Active NIACIN CR 500 MG CR-TABS 2 qHS NIACIN 54352456934 No Longer Active Alina Castaneda MD PhD Active AMOXICILLIN 500 MG CAPS 2 po BID x 10 days AMOXICILLIN 31626380207 No Longer Active Alina Castaneda MD PhD Active HYDROCODONE-ACETAMINOPHEN 7.5-325 MG TABS 1 four times a day as needed for pain HYDROCODONE-ACETAMINOPHEN 10286677424 No Longer Active Alina Castaneda MD PhD Active DOXEPIN HCL 10 MG CAPS Take 1 tablet by mouth daily DOXEPIN HCL 45996191769 No Longer Active Salina Han A Active NAVANE 10 MG CAPS 1/2 tablet twice a day THIOTHIXENE No Longer Active Salina ROBBINSA Active CYCLOBENZAPRINE HCL 10 MG TABS 1/2 tablet by mouth every 8 hours as needed for muscle spasms CYCLOBENZAPRINE HCL 69694412150 No Longer Active Alina Castaneda MD PhD Active BACTROBAN 2 % CREAM apply to ear and nose twice daily MUPIROCIN CALCIUM 25702179088 No Longer Active Alina Castaneda MD PhD Active HYDROCODONE-ACETAMINOPHEN 5-325 MG TABS take one tablet by mouth every four hours as needed for pain HYDROCODONE-ACETAMINOPHEN 12204027973 No Longer Active Alina Castaneda MD PhD Active ZYPREXA 5 MG TABS take one tablet by mouth every evening OLANZAPINE 78821573634 No Longer Active Alina Castaneda MD PhD Active ALBUTEROL SULFATE 0.083 % NEBU SOLN one vial per nebulizer TID and PRN cough/ soa ALBUTEROL SULFATE 18676954571 No Longer Active Alina Castaneda MD PhD Active GUAIFENESIN 600 MG [id number] 1 tablet by mouth twice daily if needed for cough GUAIFENESIN 44327075965 No Longer Active Marvel MARROQUIN Active AZITHROMYCIN 500 MG SOLR 1 po q day AZITHROMYCIN 08128002212 No Longer Active Alina Castaneda MD PhD Active PROMETHAZINE-CODEINE 6.25-10 MG/5ML SYRP 1 tsp po q 6 hours prn cough PROMETHAZINE-CODEINE 38470565798 No Longer Active Alina Castaneda MD PhD Active CEFDINIR 300 MG CAPS by mouth twice a day CEFDINIR 50653097542 No Longer Active Alina Castaneda MD PhD Active METFORMIN HCL 500 MG [id number] Take 3 tablets by mouth everyday METFORMIN HCL 86748647272 No Longer Active Alina Castaneda MD PhD Active LEVEMIR 100 UNIT/ML SOLN 90 units SQ qHS INSULIN DETEMIR 29141381701 No Longer Active Marvel MARROQUIN Active TOPROL XL 100 MG [id number] 1 @ HS METOPROLOL SUCCINATE 16409524973 No Longer Active Marvel MARROQUIN Active ALLOPURINOL 300 MG TABS Take one by mouth daily ALLOPURINOL 97790694168 Active Mima Jeffliudmila SHOPPING INSPECTOR Active ZYPREXA 10 MG TABS Take one by mouth daily OLANZAPINE 25453494939 No Longer Active Alina Castaneda MD PhD Active NOVOLOG 100 UNIT/ML SOLN 40 units with every meal INSULIN ASPART 85306888376 No Longer Active Alina Castaneda MD PhD Active VERAPAMIL HCL CR 120 MG TAB CR 1 qPM VERAPAMIL HCL 90627144842 No Longer Active Salina Han [facility] Active ZYPREXA 15 MG TABS Take 1 tablet by mouth daily OLANZAPINE 09944408006 No Longer Active Marvel MARROQUIN Active ALBUTEROL SULFATE (2.5 MG/3ML) 0.083% NEBU 1 neb tid and prn cough ALBUTEROL SULFATE 38479596118 No Longer Active Alina Castaneda MD PhD Active LANTUS 100 UNIT/ML SOLN 60 units sq q hs INSULIN GLARGINE 65449560576 No Longer Active CRYSTAL Suarez Active ALBUTEROL SULFATE (2.5 MG/3ML) 0.083% NEBU 1 neb tid and prn cough ALBUTEROL SULFATE (2.5 MG/3ML) 0.083% NEBU 299590 ALBUTEROL SULFATE Inactive ZYPREXA 15 MG TABS Take 1 tablet by mouth daily ZYPREXA 15 MG TABS 467889 OLANZAPINE Inactive VERAPAMIL HCL CR 120 MG TAB CR 1 qPM VERAPAMIL HCL CR 120 MG TAB CR VERAPAMIL HCL Inactive ZYPREXA 10 MG TABS Take one by mouth daily ZYPREXA 10 MG TABS 480985 OLANZAPINE Inactive TOPROL XL 100 MG [id number] 1 @ HS TOPROL XL 100 MG [id number]-VAK METOPROLOL SUCCINATE Inactive LEVEMIR 100 UNIT/ML SOLN 90 units SQ qHS LEVEMIR 100 UNIT/ML SOLN INSULIN DETEMIR Inactive PROMETHAZINE-CODEINE 6.25-10 MG/5ML SYRP 1 tsp po q 6 hours prn cough PROMETHAZINE-CODEINE 6.25-10 MG/5ML SYRP 719834 PROMETHAZINE- CODEINE Inactive GUAIFENESIN 600 MG FT65R-ZWY 1 tablet by mouth twice daily if needed for cough GUAIFENESIN 600 MG [id number] GUAIFENESIN Inactive ALBUTEROL SULFATE 0.083 % NEBU SOLN one vial per nebulizer TID and PRN cough/ soa ALBUTEROL SULFATE 0.083 % NEBU SOLN 167513 ALBUTEROL SULFATE Inactive ZYPREXA 5 MG TABS take one tablet by mouth every evening ZYPREXA 5 MG TABS 903731 OLANZAPINE Inactive HYDROCODONE-ACETAMINOPHEN 5-325 MG TABS take one tablet by mouth every four hours as needed for pain HYDROCODONE-ACETAMINOPHEN 5-325 MG TABS 080737 HYDROCODONE-ACETAMINOPHEN Inactive BACTROBAN 2 % CREAM apply to ear and nose twice daily BACTROBAN 2 % CREAM 016902 MUPIROCIN CALCIUM Inactive CYCLOBENZAPRINE HCL 10 MG TABS 1/2 tablet by mouth every 8 hours as needed for muscle spasms CYCLOBENZAPRINE HCL 10 MG TABS 993539 CYCLOBENZAPRINE HCL Inactive NAVANE 10 MG CAPS 1/2 tablet twice a day NAVANE 10 MG CAPS THIOTHIXENE Inactive DOXEPIN HCL 10 MG CAPS Take 1 tablet by mouth daily DOXEPIN HCL 10 MG CAPS 2167341 DOXEPIN HCL Inactive HYDROCODONE-ACETAMINOPHEN 7.5-325 MG TABS 1 four times a day as needed for pain HYDROCODONE-ACETAMINOPHEN 7.5-325 MG TABS 711826 HYDROCODONE-ACETAMINOPHEN Inactive NIACIN CR 500 MG CR-TABS 2 qHS NIACIN CR 500 MG CR- TABS NIACIN Inactive ORPHENADRINE CITRATE ER 100 MG [id number] 1 every 12 hr. as needed ORPHENADRINE CITRATE ER 100 MG SM48R-LYP ORPHENADRINE CITRATE Inactive ACETAMINOPHEN 500 MG TABS 2 Q 6 hr. PRN ACETAMINOPHEN 500 MG TABS 525509 ACETAMINOPHEN Inactive SAPHRIS 5 MG SUBL by mouth twice a day SAPHRIS 5 MG SUBL ASENAPINE MALEATE Inactive NIACIN ER 500 MG CR-TABS 4 qHS (for triglycerides) NIACIN ER 500 MG CR-TABS NIACIN Inactive IBUPROFEN 200 MG TABS 1 Q 6 hr. PRN IBUPROFEN 200 MG TABS 238523 IBUPROFEN Inactive FLUTICASONE PROPIONATE 50 MCG/ACT SUSP 2 sprays each nostril qDay x 30 days FLUTICASONE PROPIONATE 50 MCG/ACT SUSP 1361432 FLUTICASONE PROPIONATE Inactive EQL TRUETEST TEST STRP Test blood sugar TID EQL TRUETEST TEST STRP GLUCOSE BLOOD Inactive TERESE CONTOUR TEST STRP monitor blood sugars 3x/day TERESE CONTOUR TEST STRP GLUCOSE BLOOD Inactive DETROL LA 4 MG [id number] Take 1 tablet by mouth daily DETROL LA 4 MG [id number] TOLTERODINE TARTRATE Inactive ZYPREXA 7.5 MG TABS 1 at HS ZYPREXA 7.5 MG TABS 176052 OLANZAPINE Inactive THIOTHIXENE 5 MG CAPS by mouth twice a day THIOTHIXENE 5 MG CAPS 470819 THIOTHIXENE Inactive UROXATRAL 10 MG [id number] Take 1 tablet by mouth daily UROXATRAL 10 MG IN92U-SJB ALFUZOSIN HCL Inactive ACYCLOVIR 400 MG ORAL TABS 1 pill three times daily x 5 days, for cold sore outbreak ACYCLOVIR 400 MG ORAL TABS 698660 ACYCLOVIR Inactive TRUETEST TEST STRP check sugars 4x/day TRUETEST TEST STRP GLUCOSE BLOOD Inactive HUMALOG 100 UNIT/ML SOLN Take 20 units with breakfast, 10u with lunch and suppetr. HUMALOG 100 UNIT/ML SOLN INSULIN LISPRO ( HUMAN) Inactive CYCLOBENZAPRINE HCL 10 MG TABS 1 tablet by mouth three times daily, scheduled CYCLOBENZAPRINE HCL 10 MG TABS 355076 CYCLOBENZAPRINE HCL Inactive ACCU-CHEK ROSA INVITR STRP use strips with device to check blood sugars 3 times daily ACCU-CHEK ROSA INVITR STRP GLUCOSE BLOOD Inactive ACCU-CHEK ROSA UZMA Use device to check blood sugars ACCU-CHEK ROSA UZMA BLOOD GLUCOSE MONITORING SUPPL Inactive FLUVOXAMINE MALEATE 100 MG ORAL TABS Take 1/2 tab at noon FLUVOXAMINE MALEATE 100 MG ORAL TABS 775124 FLUVOXAMINE MALEATE Inactive FLUVOXAMINE MALEATE 100 MG TABS Take one (1) tablet by mouth am, 1/2 at noon FLUVOXAMINE MALEATE 100 MG TABS 820104 FLUVOXAMINE MALEATE Inactive BACTROBAN 2 % CREAM Apply to affected area BID for up to 10 days BACTROBAN 2 % CREAM 484107 MUPIROCIN CALCIUM Inactive NOVOFINE 32G X 6 MM MISC use one four times per day NOVOFINE 32G X 6 MM MISC INSULIN PEN NEEDLE Inactive TRAZODONE HCL 100 MG ORAL TABS 1 tab by mouth for sleep TRAZODONE HCL 100 MG ORAL TABS 056598 TRAZODONE HCL Inactive LOVAZA 1 GM CAPS 4 daily (for triglycerides) LOVAZA 1 GM CAPS 168223 RLWIL-[id number] ETHYL ESTERS Inactive METFORMIN HCL ER 500 MG [id number]-EOL Take three tablets by mouth everyday METFORMIN HCL ER 500 MG [id number] METFORMIN HCL Inactive METOPROLOL SUCCINATE 100 MG SS91F-ZPZ 1 by mouth daily for blood pressure METOPROLOL SUCCINATE 100 MG VQ23K-SKU METOPROLOL SUCCINATE Inactive AMITIZA 24 MCG ORAL CAPS Take one capsule BID for constipation. AMITIZA 24 MCG ORAL CAPS LUBIPROSTONE Inactive TOLTERODINE TARTRATE 2 MG TABS 1 pill twice daily, for bladder TOLTERODINE TARTRATE 2 MG TABS 130704 TOLTERODINE TARTRATE Inactive COLACE 100 MG CAPS 1 pill by mouth twice daily, for constipation COLACE 100 MG CAPS 1628340 DOCUSATE SODIUM Inactive LOMOTIL 2.5-0.025 MG ORAL TABS take 1-2 tabs PO after each stool, no more than 8 in 24 hours LOMOTIL 2.5-0.025 MG ORAL TABS 7650609 DIPHENOXYLATE-ATROPINE Inactive ZOFRAN 4 MG TABS 1 po q4hr PRN Nausea ZOFRAN 4 MG TABS 966425 ONDANSETRON HCL Inactive HYDROCODONE-ACETAMINOPHEN 5-325 MG TABS 2 tabs by mouth three times daily for pain HYDROCODONE-ACETAMINOPHEN 5-325 MG TABS 849846 HYDROCODONE-ACETAMINOPHEN Inactive ZOLPIDEM TARTRATE 10 MG TABS take at bedtime ZOLPIDEM TARTRATE 10 MG TABS 490951 ZOLPIDEM TARTRATE Inactive LISINOPRIL 20 MG TABS 1 BID LISINOPRIL 20 MG TABS 406689 LISINOPRIL Inactive TRAVATAN Z 0.004 % SOLN 1 gtt each eye daily TRAVATAN Z 0.004 % SOLN TRAVOPROST Inactive LATUDA 60 MG ORAL TABS Take one by mouth daily LATUDA 60 MG ORAL TABS LURASIDONE HCL Inactive CEFDINIR 300 MG CAPS by mouth twice a day CEFDINIR 300 MG CAPS 065554 CEFDINIR Inactive AZITHROMYCIN 500 MG SOLR 1 po q day AZITHROMYCIN 500 MG SOLR 60066205874 AZITHROMYCIN Inactive AMOXICILLIN 500 MG CAPS 2 po BID x 10 days AMOXICILLIN 500 MG CAPS 989478 AMOXICILLIN Inactive PENICILLIN V POTASSIUM 500 MG TABS 1 pill by mouth three times daily PENICILLIN V POTASSIUM 500 MG TABS 155952 PENICILLIN V POTASSIUM Inactive KEFLEX 500 MG CAP 1 po BID x 7 days KEFLEX 500 MG CAP 926902 CEPHALEXIN Inactive Immunizations Vaccine Administration Date Value [...] Fluvirin, Fluarix, Agriflu(>=18 yo)) Fluzone (>3 yrs.) [[id number]] Influenza, seasonal, injectable pneumococcal immunization administered Pneumovax [...] Panel - Chemistry sodium, serum 138 mmol/L 138-791 8909/11/11 potassium, serum 4.7 mmol/L 3.5-5.2 chloride, serum [...] Acid - Chemistry cholesterol, serum 187 mg/dL 471-604 2367/06/14 triglyceride, serum, fasting 246 mg/dL 30-200 HDL [...] negative Encounters Code Encounter Date Provider Facility CPT-33599 Level 3 Est. Patient 16:52:51 CDT Vanessa Hickey MD [facility] CPT-43114 Level 3 Est. Patient 17:40:16 CDT Mima Kacey [facility] CPT-07975 Level 3 Est. Patient 14:34:52 CDT Vanessa Hickey MD [facility]-42298 Level 3 Est. Patient 16:27:51 CDT Mima Kacey [facility] CPT-12913 Level 3 Est. Patient 14:39:00 WET ROLLER Vanessa Hickey MD [facility] CPT-20972 Level 2 Est. Patient 18:43:34 CDT Mima Kacey [facility] CPT-01276 Level 3 Est. Patient 16:22:09 CDT Cherelle Avila [facility] CPT-58117 Level 4 Est. Patient 17:55:14 CDT Mima Kacey [facility] CPT-29619 Level 2 Est. Patient 17:13:21 CDT Alina Castaneda MD [facility] CPT-28462 Level 3 Est. Patient 14:46:15 CDT Vanessa Hickey MD [facility]-70062 Level 3 Est. Patient 09:34:56 CDT Alina Castaneda MD [facility]-99893 Level 3 Est. Patient 21:40:19 CDT Mima Erazo [facility] CPT-93669 Level 3 Est. Patient 09:26:40 CDT Marvel Charles [facility]-16273 Level 3 Est. Patient 12:36:43 CDT Vanessa Hickey MD [facility]-10189 Level 3 Est. Patient 12:57:49 CDT Vanessa Hickey MD [facility]-58872 Level 3 Est. Patient 00:28:25 CDT Alina Castaneda MD [facility]-29147 Level 2 Est. Patient 12:52:14 CDT Alina Castaneda MD [facility]-93084 Level 3 Est. Patient 11:51:18 WET ROLLER Alina Castaneda MD [facility]-91354 Level 3 Est. Patient 10:09:22 WET ROLLER Alina Castaneda MD [facility]-55034 Level 3 Est. Patient 14:36:26 WET ROLLER Marvel [facility]-13636 Level 3 Est. Patient 13:34:47 WET ROLLER Alina Castaneda MD [facility]-88721 Level 3 Est. Patient 19:52:08 WET ROLLER Alnia Castaneda MD [facility]-83700 Level 3 Est. Patient 10:01:51 WET ROLLER Marvel [facility]-53630 Level 3 Est. Patient 21:54:06 CDT Vanessa Hickey MD [facility]-27146 Level 3 Est. Patient 08:54:46 CDT Alina Castaneda MD [facility]-92663 Level 3 Est. Patient 09:32:11 CDT Marvel [facility]-82711 Level 3 Est. Patient 12:02:49 CDT Alina Castaneda MD [facility]12222 Level 3 Est. Patient 19:17:33 CDT Alina Castaneda MD [facility]-70102 Level 3 Est. Patient 13:19:[address] [facility] [place] CPT-68937 Level 3 Est. Patient 08:20:05 CDT Alina Castaneda MD [facility]-25326 Level 3 Est. Patient 15:17:18 CDT Alina Castaneda MD [facility]-46448 Level 3 Est. Patient 14:25:36 WET ROLLER Marvel [facility] CPT-00221 Level 3 Est. Patient 10:09:15 WET ROLLER Marvel [facility]-99080 Level 3 Est. Patient 21:28:43 CDT Alina Castaneda MD [facility]-39269 Level 3 Est. [facility]:20:[facility] Est[facility] Patient 19:08:12 CDT Alina Castaneda MD [facility]-11731 Level 3 Est. Patient 15:06:39 [facility] Level 4 Est. Patient 17:48:15 CDT Alina Castaneda MD [facility]-91581 Level 3 Est. Patient 14:53:49 CDT Alina Castaneda MD [facility]-95540 Level 3 Est. Patient 09:35:16 CDT Alina Castaneda MD [facility]-60177 Level 3 Est. Patient 12:23:22 CDT Alina Castaneda MD [facility]-73814 Level 3 Est. Patient 16:19:15 CDT Alina Castaneda MD [facility]-96330 Level 3 Est. Patient 21:39:56 WET ROLLER Alina Castaneda MD [facility]-71102 Level 4 Est. Patient 14:12:56 WET ROLLER Alina Castaneda MD [facility]67049 Level 2 Est. Patient 15:34:57 WET ROLLER Alina Castaneda MD [facility]-04343 Level 3 Est. Patient 12:17:04 WET ROLLER Alina Castaneda MD [facility]09612 Level 3 Est. Patient 09:18:18 WET ROLLER [facility]-25138 Level 2 Est. Patient 21:50:24 CDT Alina Castaneda MD [facility]-47688 Level 3 Est. Patient 09:17:28 CDT [facility]-28667 Level 4 Est. Patient 18:54:02 CDT Alina Castaneda MD [facility]-73156 Level 3 Est. Patient 10:47:10 CDT Alina Castaneda MD [facility]-08293 Level 3 Est. Patient 09:22:20 CDT [facility]-43597 Level 3 Est. Patient 16:39:43 CDT [facility]-86171 Level 3 Est. Patient 16:05:16 CDT Alina Castaneda MD [facility]12913 Level 3 Est. Patient 00:29:15 CDT Alina Castaneda MD [facility]46557 Level 3 Est. Patient 10:49:22 WET ROLLER [facility] CPT-54670 Level 3 Est. Patient 21:30:19 WET ROLLER Alina Castaneda MD PhD [facility] CPT-66182 Level 4 Est. Patient 17:04:11 [facility] Level 3 Est. Patient 15:34:11 [facility]29228 Level 2 Est. Patient 12:51:58 WET ROLLER Alina Castaneda MD PhD [facility] CPT-93572 Level 3 Est. Patient 13:20:01 WET ROLLER Alina Castaneda MD PhD [facility] CPT-84724 Level 3 Est. Patient 09:23:35 CDT Alina Castaneda MD PhD [facility] Procedures Code Procedure Name Date Entry Date Standard Description [facility]-TCM Transitional Care Mgmt-Moderate 10:25:31 CDT CPT-57361 Bladder Scan 14:34:53 CDT CPT-29335 Bladder Scan 14:39:01 WET ROLLER [facility] Transitional Care Mgmt-Moderate 10:30:19 WET ROLLER CPT-43561 Bladder Scan 12:36:44 CDT CPT-82924 Bladder Scan 21:54:06 CDT CPT-G0008 Administration of Influenza Virus Vaccine 13:05:26 CDT CPT-05019 Fluzone Quadrivalent Intramuscular Suspension 0.5 ML 13: 05:26 CDT CPT-13853 Administration single or combination vaccine inc oral 11 :49:51 CDT CPT-68364 Pneumovax 11:49:51 CDT CPT-71664 Ribs unilateral 2V 12:37:22 WET ROLLER CPT-61560 Chest 2V Frontal and Lat 17:15:26 CDT CPT-69213 Abx/Therapy Injection 18:54:02 CDT CPT-J0696 Rocephin 1000 mg (Ceftriaxone) 16:00:32 CDT CPT-64936 Chest 2V Frontal and Lat 15:26:45 CDT CPT-27133 Chest 2V Frontal and Lat 10:23:27 CDT CPT-77054 Venipuncture Draw Fee 10:11:00 CDT CPT-02286 Administration single or combination vaccine inc oral 11 :56:38 CDT CPT-48636 Influenza split virus > age 3 11:56:38 CDT CPT-31087 Venipuncture Draw Fee 08:49:54 WET ROLLER CPT-12406 EKG Trac and Interp 17:54:19 WET ROLLER
--- OUTSIDE RECORDS SUMMARY | 2018-07-02 19:18 | XMS REPORT | Clinical Summary ---
Author Author Admin, TERELL Organization [facility] Address Unknown Phone Unavailable Allergies, Adverse Reactions, 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 Erazo INSTRUMENT AND ELECTRICAL TECHNICIAN Benign paroxysmal positional vertigo Vertigo, benign paroxysmal position 386.11 Inactive Mima Erazo INSTRUMENT AND ELECTRICAL TECHNICIAN Benign paroxysmal positional vertigo High-risk sexual behavior V69.2 Active Alina Castaneda MD PhD High-risk sexual behavior Erectile dysfunction 302.72 Active Alina Castaneda MD PhD Psychosexual dysfunction with inhibited sexual excitement Constipation 564.00 Active Alina Castaneda MD PhD Constipation, unspecified Skin lesion 709.9 Active Alina Castaneda MD PhD Unspecified disorder of skin and subcutaneous tissue Malaise and fatigue 780.79 Active Cherelle Speaks INSTRUMENT AND ELECTRICAL TECHNICIAN Other malaise and fatigue Diarrhea 787.91 Active Cherelle Speaks INSTRUMENT AND ELECTRICAL TECHNICIAN Diarrhea PHARYNGITIS 462 Active Cherelle Speaks INSTRUMENT AND ELECTRICAL TECHNICIAN Acute pharyngitis Colitis 558.9 Active Mima Erazo INSTRUMENT AND ELECTRICAL TECHNICIAN Other and unspecified noninfectious gastroenteritis and colitis WOUND, OPEN, NOSE ICD-873.20 Inactive Alina Castaneda MD PhD DIABETES, TYPE 2 ICD-250.00 Inactive Alina Castaneda MD PhD HYPERTENSION ICD-401.9 Inactive Alina Castaneda MD PhD URI ICD-465.9 Inactive Alina Castaneda MD PhD CHEST PAIN ICD-786.50 Inactive Alina Castaneda MD PhD FH STROKE ICD-V17.1 Inactive Marvel Charles STREETCAR OPERATOR FATIGUE ICD-780.79 Inactive Alina Castaneda MD [...] x 1 week then daily FLUTICASONE PROPIONATE 09263927124 Active Mima Erazo INSTRUMENT AND ELECTRICAL TECHNICIAN Active BD PEN NEEDLE MINI U/F 31G X 5 MM MISC 4 a day INSULIN PEN NEEDLE 01458810605 Active Marvel Mackenzieglestela STREETCAR OPERATOR Active AMITIZA 24 MCG ORAL CAPS Take one capsule BID for constipation LUBIPROSTONE 49143683542 Active Mima Erazo INSTRUMENT AND ELECTRICAL TECHNICIAN Active LEVEMIR FLEXTOUCH 100 UNIT/ML SC SOPN 75 units SQ each evening, for diabetes INSULIN DETEMIR 28438722498 Active CRYSTAL Rodrigues Active TRUEPLUS LANCETS 30G MISC 3 a day LANCETS 48290841532 Active Marvel MARROQUIN Active TOLTERODINE TARTRATE 2 MG TABS 1 pill twice daily, for bladder TOLTERODINE TARTRATE 79953287311 No Longer Active Vanessa Hickey MD Active AMITIZA 24 MCG ORAL CAPS Take one capsule BID for constipation. LUBIPROSTONE 60452490662 No Longer Active Vanessa Hickey MD Active LOMOTIL 2.5-0.025 MG ORAL TABS take 1-2 tabs PO after each stool, no more than 8 in 24 hours DIPHENOXYLATE-ATROPINE 87689670162 Active Grace Azam RMA Active FLUVOXAMINE MALEATE 100 MG ORAL TABS take one tab every AM et HS, and take 1/ 2 tab at noon FLUVOXAMINE MALEATE 54841279828 Active Grace Azam RMA Active METOPROLOL SUCCINATE 100 MG [id number]-XBH 1 by mouth daily for blood pressure METOPROLOL SUCCINATE 77520903469 No Longer Active Grace Azam RMA Active METFORMIN HCL ER 500 MG [id number]-GAH Take three tablets by mouth everyday METFORMIN HCL 68383336505 No Longer Active Grace Azam RMA Active LOVAZA 1 GM CAPS 4 daily (for triglycerides) OMEGA-3- ACID ETHYL ESTERS 93362900273 No Longer Active Grace Azam RMA Active TRAZODONE HCL 100 MG ORAL TABS 1 tab by mouth for sleep TRAZODONE HCL 52240794113 No Longer Active Grace Azam RMA Active NOVOFINE 32G X 6 MM MISC use one four times per day INSULIN PEN NEEDLE 33654434490 No Longer Active Grace Azam RMA Active BACTROBAN 2 % CREAM Apply to affected area BID for up to 10 days MUPIROCIN CALCIUM 95150425660 No Longer Active Grace Azam RMA Active ZOFRAN 4 MG TABS 1 po q4hr PRN [place]ausea ONDANSETRON HCL 11290926602 Active Salina Ervinford RMA Active KEFLEX 500 MG CAP 1 po BID x 7 days CEPHALEXIN 57858596133 No Longer Active Cherelle Avila INSTRUMENT AND ELECTRICAL TECHNICIAN Active FLUVOXAMINE MALEATE 100 MG TABS Take one (1) tablet by mouth am, 1/2 at noon FLUVOXAMINE MALEATE 65128397832 No Longer Active Mima Erazo INSTRUMENT AND ELECTRICAL TECHNICIAN Active CORICIDIN HBP CONGESTION/COUGH 10-200 MG ORAL CAPS Take as directed on box as needed for cold/flu symptoms DEXTROMETHORPHAN-GUAIFENESIN 31047902482 Active Cherelle Avila INSTRUMENT AND ELECTRICAL TECHNICIAN Active OMEGA-3 300 MG ORAL CAPS 4 caps by mouth daily OMEGA-3 FATTY ACIDS 56340782870 Active Mima Erazo INSTRUMENT AND ELECTRICAL TECHNICIAN Active FLUVOXAMINE MALEATE 100 MG ORAL TABS Take 1/2 tab at noon FLUVOXAMINE MALEATE 84812033929 No Longer Active Cherelle Avila INSTRUMENT AND ELECTRICAL TECHNICIAN Active [facility] LUBRICANT EYE DROPS 0.4-0.3 % OPHTH SOLN POLYETHYL GLYCOL-PROPYL GLYCOL 56455651876 Active Mima Erazo INSTRUMENT AND ELECTRICAL TECHNICIAN Active CLONAZEPAM 1 MG TABS 1/2 pill by mouth three times daily CLONAZEPAM 39609180856 Active Alina Castaneda MD PhD Active MIRALAX POWD 17g by mouth daily, for constipation POLYETHYLENE GLYCOL 3350 05182817899 Active Alina Castaneda MD PhD Active HYDROCODONE-ACETAMINOPHEN 5-325 MG TABS 2 tabs by mouth three times daily for pain HYDROCODONE-ACETAMINOPHEN 01873536678 Active Mima Erazo INSTRUMENT AND ELECTRICAL TECHNICIAN Active HUMALOG KWIKPEN 100 UNIT/ML SC SOPN 20 units with breakfast, 10 units with lunch, 10 units with dinner, for diabetes INSULIN LISPRO (HUMAN ) 10070926692 Active Alina Castaneda MD PhD Active LATUDA 120 MG ORAL TABS 1 pill by mouth nightly LURASIDONE HCL 05934580289 Active Alina Castaneda MD PhD Active COLACE 100 MG CAPS 1 pill by mouth twice daily, for constipation DOCUSATE SODIUM 35083480577 Active Alina Castanead MD PhD Active TRUETEST TEST STRP check blood sugars 3x/day GLUCOSE BLOOD 08268447709 Active Marvel MARROQUIN Active ACCU-CHEK ROSA UZMA Use device to check blood sugars BLOOD GLUCOSE MONITORING SUPPL 90232410433 No Longer Active Marvel MARROQUIN Active ACCU-CHEK ROSA INVITR STRP use strips with device to check blood sugars 3 times daily GLUCOSE BLOOD 80243213482 No Longer Active Marvel MARROQUIN Active VERAPAMIL HCL ER 180 MG ORAL CR-TABS 1 pill by mouth twice daily, for migraine prevention VERAPAMIL HCL 81831061647 Active Alina Castaneda MD PhD Active CYCLOBENZAPRINE HCL 10 MG TABS 1 tablet by mouth three times daily, scheduled CYCLOBENZAPRINE HCL 39454488820 No Longer Active Alina Castaneda MD PhD Active HUMALOG 100 UNIT/ML SOLN Take 20 units with breakfast, 10u with lunch and suppetr. INSULIN LISPRO (HUMAN) 85223239596 No Longer Active Alina Castaneda MD PhD Active TRUETEST TEST STRP check sugars 4x/day GLUCOSE BLOOD 23951580908 No Longer Active Alina Castaneda MD PhD Active MORPHINE SULFATE 30 MG TABS 1 pill by mouth twice daily, for pain MORPHINE SULFATE 33966005898 Active Mima Erazo INSTRUMENT AND ELECTRICAL TECHNICIAN Active ACYCLOVIR 400 MG ORAL TABS 1 pill three times daily x 5 days, for cold sore outbreak ACYCLOVIR 56791657419 No Longer Active Alina Castaneda MD PhD Active PENICILLIN V POTASSIUM 500 MG TABS 1 pill by mouth three times daily PENICILLIN V POTASSIUM 73546917452 No Longer Active Alina Castaneda MD PhD Active UROXATRAL 10 MG QK94C-AVR Take 1 tablet by mouth daily ALFUZOSIN HCL 40692756482 No Longer Active Alina Castaneda MD PhD Active THIOTHIXENE 5 MG CAPS by mouth twice a day THIOTHIXENE 96791324264 No Longer Active Alina Castaneda MD PhD Active ZYPREXA 7.5 MG TABS 1 at HS OLANZAPINE 13893658792 No Longer Active Alina Castaneda MD PhD Active BD INSULIN SYRINGE 28G X 1/2" 1 ML MISC 1 four times per day INSULIN SYRINGE-NEEDLE U-100 59396834018 Active Marvel MARROQUIN Active DETROL LA 4 MG [id number]-RQL Take 1 tablet by mouth daily TOLTERODINE TARTRATE 59521367935 No Longer Active Alina Castaneda MD PhD Active TERESE CONTOUR TEST STRP monitor blood sugars 3x/day GLUCOSE BLOOD 13629163385 No Longer Active Alina Castaneda MD PhD Active EQL TRUETEST TEST STRP Test blood sugar TID GLUCOSE BLOOD 05540901732 No Longer Active Alina Castaneda MD PhD Active FLUTICASONE PROPIONATE 50 MCG/ACT SUSP 2 sprays each nostril qDay x 30 days FLUTICASONE PROPIONATE 80101097585 No Longer Active Alina Castaneda MD PhD Active IBUPROFEN 200 MG TABS 1 Q 6 hr. PRN IBUPROFEN 87598075062 No Longer Active Alina Castaneda MD PhD Active NIACIN ER 500 MG CR-TABS 4 qHS (for triglycerides) NIACIN 44428632242 No Longer Active Alina Castaneda MD PhD Active ALFUZOSIN HCL ER 10 MG [id number] 1 tablet daily ALFUZOSIN HCL 39059379029 Active Vanessa Hickey MD Active SAPHRIS 5 MG SUBL by mouth twice a day ASENAPINE MALEATE 45394563903 No Longer Active Marvel MARROQUIN Active ACETAMINOPHEN 500 MG TABS 2 Q 6 hr. PRN ACETAMINOPHEN 19956917178 No Longer Active Marvel MARROQUIN Active ORPHENADRINE CITRATE ER 100 MG [id number] 1 every 12 hr. as needed ORPHENADRINE CITRATE 08717153297 No Longer Active Alina Castaneda MD PhD Active NIACIN CR 500 MG CR-TABS 2 qHS NIACIN 14450007781 No Longer Active Alina Castaneda MD PhD Active AMOXICILLIN 500 MG CAPS 2 po BID x 10 days AMOXICILLIN 29537505971 No Longer Active Alina Castaneda MD PhD Active HYDROCODONE-ACETAMINOPHEN 7.5-325 MG TABS 1 four times a day as needed for pain HYDROCODONE-ACETAMINOPHEN 84988818545 No Longer Active Alina Castaneda MD PhD Active DOXEPIN HCL 10 MG CAPS Take 1 tablet by mouth daily DOXEPIN HCL 05723647682 No Longer Active Salina Han A Active NAVANE 10 MG CAPS 1/2 tablet twice a day THIOTHIXENE No Longer Active Salina Han A Active CYCLOBENZAPRINE HCL 10 MG TABS 1/2 tablet by mouth every 8 hours as needed for muscle spasms CYCLOBENZAPRINE HCL 60465166742 No Longer Active Alina Castaneda MD PhD Active BACTROBAN 2 % CREAM apply to ear and nose twice daily MUPIROCIN CALCIUM 01221090495 No Longer Active Alina Castaneda MD PhD Active HYDROCODONE-ACETAMINOPHEN 5-325 MG TABS take one tablet by mouth every four hours as needed for pain HYDROCODONE-ACETAMINOPHEN 60160901474 No Longer Active Alina Castaneda MD PhD Active ZOLPIDEM TARTRATE 10 MG TABS take at bedtime ZOLPIDEM TARTRATE 86573813310 Active Alina Castaneda MD PhD Active ZYPREXA 5 MG TABS take one tablet by mouth every evening OLANZAPINE 00650839156 No Longer Active Alina Castaneda MD PhD Active ALBUTEROL SULFATE 0.083 % NEBU SOLN one vial per nebulizer TID and PRN cough/ soa ALBUTEROL SULFATE 62930454210 No Longer Active Alina Castaneda MD PhD Active GUAIFENESIN 600 MG [id number]-ATS 1 tablet by mouth twice daily if needed for cough GUAIFENESIN 00755225943 No Longer Active Marvel MARROQUIN Active AZITHROMYCIN 500 MG SOLR 1 po q day AZITHROMYCIN 71261452100 No Longer Active Alina Castaneda MD PhD Active PROMETHAZINE-CODEINE 6.25-10 MG/5ML SYRP 1 tsp po q 6 hours prn cough PROMETHAZINE-CODEINE 53088735698 No Longer Active Alina Castaneda MD PhD Active CEFDINIR 300 MG CAPS by mouth twice a day CEFDINIR 41088674559 No Longer Active Alina Castaneda MD PhD Active METFORMIN HCL 500 MG AH17K-TNB Take 3 tablets by mouth everyday METFORMIN HCL 23199932080 No Longer Active Alina Castaneda MD PhD Active LEVEMIR 100 UNIT/ML SOLN 90 units SQ qHS INSULIN DETEMIR 79493469685 No Longer Active Marvel MARROQUIN Active TOPROL XL 100 MG XS10R-MMI 1 @ HS METOPROLOL SUCCINATE 01246330800 No Longer Active Marvel MARROQUIN Active ALLOPURINOL 300 MG TABS Take one by mouth daily ALLOPURINOL 68160949094 Active Alina Castaneda MD PhD Active ZYPREXA 10 MG TABS Take one by mouth daily OLANZAPINE 20385936224 No Longer Active Alina Castaneda MD PhD Active NOVOLOG 100 UNIT/ML SOLN 40 units with every meal INSULIN ASPART 25426328031 No Longer Active Alina Castaneda MD PhD Active VERAPAMIL HCL CR 120 MG TAB CR 1 qPM VERAPAMIL HCL 52676470206 No Longer Active Salina Emely ROJAS Active ZYPREXA 15 MG TABS Take 1 tablet by mouth daily OLANZAPINE 67174564796 No Longer Active Marvel MARROQUIN Active LISINOPRIL 20 MG TABS 1 BID LISINOPRIL 51244907250 Active Alina Castaneda MD PhD Active ALBUTEROL SULFATE (2.5 MG/3ML) 0.083% NEBU 1 neb tid and prn cough ALBUTEROL SULFATE 42112015297 No Longer Active Alina Castaneda MD PhD Active TRAVATAN Z 0.004 % SOLN 1 gtt each eye daily TRAVOPROST 95679878079 Active CRYSTAL Suarez Active LANTUS 100 UNIT/ML SOLN 60 units sq q hs INSULIN GLARGINE 10549304536 No Longer Active CRYSTAL Suarez Active ALBUTEROL SULFATE (2.5 MG/3ML) 0.083% NEBU 1 neb tid and prn cough ALBUTEROL SULFATE (2.5 MG/3ML) 0.083% NEBU 888302 ALBUTEROL SULFATE Inactive ZYPREXA 15 MG TABS Take 1 tablet by mouth daily ZYPREXA 15 MG TABS 176973 OLANZAPINE Inactive VERAPAMIL HCL CR 120 MG TAB CR 1 qPM VERAPAMIL HCL CR 120 MG TAB CR VERAPAMIL HCL Inactive ZYPREXA 10 MG TABS Take one by mouth daily ZYPREXA 10 MG TABS 877298 OLANZAPINE Inactive TOPROL XL 100 MG MY44O-PAW 1 @ HS TOPROL XL 100 MG BX67U-ZKC METOPROLOL SUCCINATE Inactive LEVEMIR 100 UNIT/ML SOLN 90 units SQ qHS LEVEMIR 100 UNIT/ML SOLN INSULIN DETEMIR Inactive PROMETHAZINE-CODEINE 6.25-10 MG/5ML SYRP 1 tsp po q 6 hours prn cough PROMETHAZINE-CODEINE 6.25-10 MG/5ML SYRP 774341 PROMETHAZINE- CODEINE Inactive GUAIFENESIN 600 MG MG21O-ILD 1 tablet by mouth twice daily if needed for cough GUAIFENESIN 600 MG [id number] GUAIFENESIN Inactive ALBUTEROL SULFATE 0.083 % NEBU SOLN one vial per nebulizer TID and PRN cough/ soa ALBUTEROL SULFATE 0.083 % NEBU SOLN 368302 ALBUTEROL SULFATE Inactive ZYPREXA 5 MG TABS take one tablet by mouth every evening ZYPREXA 5 MG TABS 337050 OLANZAPINE Inactive HYDROCODONE-ACETAMINOPHEN 5-325 MG TABS take one tablet by mouth every four hours as needed for pain HYDROCODONE-ACETAMINOPHEN 5-325 MG TABS 037813 HYDROCODONE-ACETAMINOPHEN Inactive BACTROBAN 2 % CREAM apply to ear and nose twice daily BACTROBAN 2 % CREAM 141441 MUPIROCIN CALCIUM Inactive CYCLOBENZAPRINE HCL 10 MG TABS 1/2 tablet by mouth every 8 hours as needed for muscle spasms CYCLOBENZAPRINE HCL 10 MG TABS 159109 CYCLOBENZAPRINE HCL Inactive NAVANE 10 MG CAPS 1/2 tablet twice a day NAVANE 10 MG CAPS THIOTHIXENE Inactive DOXEPIN HCL 10 MG CAPS Take 1 tablet by mouth daily DOXEPIN HCL 10 MG CAPS 4482826 DOXEPIN HCL Inactive HYDROCODONE-ACETAMINOPHEN 7.5-325 MG TABS 1 four times a day as needed for pain HYDROCODONE-ACETAMINOPHEN 7.5-325 MG TABS 272990 HYDROCODONE-ACETAMINOPHEN Inactive NIACIN CR 500 MG CR-TABS 2 qHS NIACIN CR 500 MG CR- TABS NIACIN Inactive ORPHENADRINE CITRATE ER 100 MG [id number] 1 every 12 hr. as needed ORPHENADRINE CITRATE ER 100 MG RJ88N-GKM ORPHENADRINE CITRATE Inactive ACETAMINOPHEN 500 MG TABS 2 Q 6 hr. PRN ACETAMINOPHEN 500 MG TABS 197389 ACETAMINOPHEN Inactive SAPHRIS 5 MG SUBL by mouth twice a day SAPHRIS 5 MG SUBL ASENAPINE MALEATE Inactive NIACIN ER 500 MG CR-TABS 4 qHS (for triglycerides) NIACIN ER 500 MG CR-TABS NIACIN Inactive IBUPROFEN 200 MG TABS 1 Q 6 hr. PRN IBUPROFEN 200 MG TABS 057813 IBUPROFEN Inactive FLUTICASONE PROPIONATE 50 MCG/ACT SUSP 2 sprays each nostril qDay x 30 days FLUTICASONE PROPIONATE 50 MCG/ACT SUSP 984694 FLUTICASONE PROPIONATE Inactive EQL TRUETEST TEST STRP Test blood sugar TID EQL TRUETEST TEST STRP GLUCOSE BLOOD Inactive TERESE CONTOUR TEST STRP monitor blood sugars 3x/day TERESE CONTOUR TEST STRP GLUCOSE BLOOD Inactive DETROL LA 4 MG FX95V-VMG Take 1 tablet by mouth daily DETROL LA 4 MG [id number]-SAM TOLTERODINE TARTRATE Inactive ZYPREXA 7.5 MG TABS 1 at HS ZYPREXA 7.5 MG TABS 989970 OLANZAPINE Inactive THIOTHIXENE 5 MG CAPS by mouth twice a day THIOTHIXENE 5 MG CAPS 755650 THIOTHIXENE Inactive UROXATRAL 10 MG PR71V-ZFN Take 1 tablet by mouth daily UROXATRAL 10 MG [id number]-SJX ALFUZOSIN HCL Inactive ACYCLOVIR 400 MG ORAL TABS 1 pill three times daily x 5 days, for cold sore outbreak ACYCLOVIR 400 MG ORAL TABS 605573 ACYCLOVIR Inactive TRUETEST TEST STRP check sugars 4x/day TRUETEST TEST STRP GLUCOSE BLOOD Inactive HUMALOG 100 UNIT/ML SOLN Take 20 units with breakfast, 10u with lunch and suppetr. HUMALOG 100 UNIT/ML SOLN INSULIN LISPRO ( HUMAN) Inactive CYCLOBENZAPRINE HCL 10 MG TABS 1 tablet by mouth three times daily, scheduled CYCLOBENZAPRINE HCL 10 MG TABS 637062 CYCLOBENZAPRINE HCL Inactive ACCU-CHEK ROSA INVITR STRP use strips with device to check blood sugars 3 times daily ACCU-CHEK ROSA INVITR STRP GLUCOSE BLOOD Inactive ACCU-CHEK ROSA UZMA Use device to check blood sugars ACCU-CHEK ROSA UZMA BLOOD GLUCOSE MONITORING SUPPL Inactive FLUVOXAMINE MALEATE 100 MG ORAL TABS Take 1/2 tab at noon FLUVOXAMINE MALEATE 100 MG ORAL TABS 243310 FLUVOXAMINE MALEATE Inactive FLUVOXAMINE MALEATE 100 MG TABS Take one (1) tablet by mouth am, 1/2 at noon FLUVOXAMINE MALEATE 100 MG TABS 504327 FLUVOXAMINE MALEATE Inactive BACTROBAN 2 % CREAM Apply to affected area BID for up to 10 days BACTROBAN 2 % CREAM 998207 MUPIROCIN CALCIUM Inactive NOVOFINE 32G X 6 MM MISC use one four times per day NOVOFINE 32G X 6 MM MISC INSULIN PEN NEEDLE Inactive TRAZODONE HCL 100 MG ORAL TABS 1 tab by mouth for sleep TRAZODONE HCL 100 MG ORAL TABS 856686 TRAZODONE HCL Inactive LOVAZA 1 GM CAPS 4 daily (for triglycerides) LOVAZA 1 GM CAPS 449965 HVZWZ-1-YJVO ETHYL ESTERS Inactive METFORMIN HCL ER 500 MG FD70W-KJK Take three tablets by mouth everyday METFORMIN HCL ER 500 MG LY93O-GMF METFORMIN HCL Inactive METOPROLOL SUCCINATE 100 MG WM42L-TNM 1 by mouth daily for blood pressure METOPROLOL SUCCINATE 100 MG HG41U-LHD METOPROLOL SUCCINATE Inactive AMITIZA 24 MCG ORAL CAPS Take one capsule BID for constipation. AMITIZA 24 MCG ORAL CAPS LUBIPROSTONE Inactive TOLTERODINE TARTRATE 2 MG TABS 1 pill twice daily, for bladder TOLTERODINE TARTRATE 2 MG TABS 573364 TOLTERODINE TARTRATE Inactive CEFDINIR 300 MG CAPS by mouth twice a day CEFDINIR 300 MG CAPS 485518 CEFDINIR Inactive AZITHROMYCIN 500 MG SOLR 1 po q day AZITHROMYCIN 500 MG SOLR 55514817971 AZITHROMYCIN Inactive AMOXICILLIN 500 MG CAPS 2 po BID x 10 days AMOXICILLIN 500 MG CAPS 409223 AMOXICILLIN Inactive PENICILLIN V POTASSIUM 500 MG TABS 1 pill by mouth three times daily PENICILLIN V POTASSIUM 500 MG TABS 358858 PENICILLIN V POTASSIUM Inactive KEFLEX 500 MG CAP 1 po BID x 7 days KEFLEX 500 MG CAP 794630 CEPHALEXIN Inactive Immunizations Vaccine Administration Date Value [...] Fluvirin, Fluarix, Agriflu(>=18 yo)) Fluzone (>3 yrs.) [[id number]] Influenza, seasonal, injectable pneumococcal immunization administered Pneumovax [...] MICROALBUMIN - Chemistry sodium, serum 137 mmol/L 441-058 4593/05/19 potassium, serum 5.2 mmol/L 3.5-5.2 chloride, serum [...] Panel - Chemistry sodium, serum 137 mmol/L 870-037 3572/10/12 potassium, serum 4.8 mmol/L 3.5-5.2 chloride, serum 102 mmol/L 98-107 carbon dioxide, venous blood 27.6 mmol/L 21.0-32.0 blood glucose 168 mg/dL 65-110 calcium, serum 9.0 mg/dL 8.5-10.1 urea nitrogen, blood 15 mg/dL 7-18 creatinine, serum 1.04 mg/dL 0.55-1.30 sodium, serum 138 mmol/L 403-040 9911/11/11 potassium, serum 4.7 mmol/L 3.5-5.2 chloride, serum [...] % 11.6-14.8 platelet count 240 10^3/MM^3 10*3/mm3 180-737 5009/11/11 leukocyte count, blood 9.6 10^3/MM^3 10*3/mm3 4.6-10.2 [...] 252 10^3/MM^3 10*3/mm3 142-424 Lab Report: Chlamydia/GC APTIMA/80417, HIV-1/2 Agn/Dominga/62732, RPR (DX) W ... - Chemistry hepatitis B surface antigen NON-REACTIVE NON-REACTIVE Lab Report: Chlamydia/GC APTIMA/97828, HIV-1/2 Agn/Dominga/79222, RPR (DX) W ... - Lab chlamydia DNA probe NOT DETECTED NOT DETECTED Lab Report: Chlamydia/GC APTIMA/59395, HIV-1/2 Agn/Dominga/13690, RPR (DX) W ... - Microbiology Neisseria gonorrhoeae DNA probe NOT DETECTED NOT DETECTED Lab Report: Chlamydia/GC APTIMA/66029, HIV-1/2 Agn/Dominga/89846, RPR (DX) W ... - Serology rapid plasma reagin antibody titer NON-REACTIVE NON-REACTIVE Lab Report: HGBA1C - Chemistry hemoglobin A1C, blood, as % of total hemoglobin 6.1 % 4.3-6.0 hemoglobin A1C, blood, as % of total hemoglobin 6.3 % 4.3-6.0 Lab Report: Lipid Panel, HEPATIC PANEL, MICROALBUMIN, CBC - Chemistry albumin/creatinine ratio, urine < 30 mg/g mg/g{creat} 0-29 cholesterol, serum 131 mg/dL 892-601 4582/06/03 triglyceride, serum, fasting 383 mg/dL 30-200 HDL [...] Acid - Chemistry cholesterol, serum 142 mg/dL 223-187 1703/06/26 triglyceride, serum, fasting 272 mg/dL 30-200 HDL [...] negative Encounters Code Encounter Date Provider Facility CPT-09275 Level 3 Est. Patient 14:39:00 CHIEF SUPPLY CHAIN OFFICER Vanessa Hickey MD [facility] CPT-26676 Level 2 Est. Patient 18:43:34 CDT Mima Erazo [facility] CPT-90571 Level 3 Est. Patient 16:22:09 CDT Cherelle Avila [facility] CPT-56869 Level 4 Est. Patient 17:55:14 CDT Mima Erazo [facility] CPT-31123 Level 2 Est. Patient 17:13:21 CDT Alina Castaneda MD [facility] CPT-12296 Level 3 Est. Patient 14:46:15 CDT Vanessa Hickey MD [facility]-71683 Level 3 Est. Patient 09:34:56 CDT Alina Castaneda MD [facility]60384 Level 3 Est. Patient 21:40:19 CDT Mima Erazo [facility]-18409 Level 3 Est. Patient 09:26:40 CDT Marvel [facility]-56020 Level 3 Est. Patient 12:36:43 CDT Vanessa Hickey MD [facility]-96572 Level 3 Est. Patient 12:57:49 CDT Vanessa Hickey MD [facility]-53901 Level 3 Est. Patient 00:28:25 CDT Alina Castaneda MD [facility]57812 Level 2 Est. Patient 12:52:14 CDT Alina Castaneda MD [facility]23000 Level 3 Est. Patient 11:51:18 CHIEF SUPPLY CHAIN OFFICER Alina Castaneda MD [facility]11843 Level 3 Est. Patient 10:09:22 CHIEF SUPPLY CHAIN OFFICER Alina Castaneda MD [facility]16508 Level 3 Est. Patient 14:36:26 CHIEF SUPPLY CHAIN OFFICER [facility]74453 Level 3 Est. Patient 13:34:47 CHIEF SUPPLY CHAIN OFFICER Alina Castaneda MD [facility]99040 Level 3 Est. Patient 19:52:08 CHIEF SUPPLY CHAIN OFFICER Alina Castaneda MD [facility]97821 Level 3 Est. Patient 10:01:51 CHIEF SUPPLY CHAIN OFFICER Marvel [facility]-21597 Level 3 Est. Patient 21:54:06 CDT Vanessa Hickey MD [facility]-40887 Level 3 Est. Patient 08:54:46 CDT Alina Castaneda MD [facility]96647 Level 3 Est. Patient 09:32:[address] [facility]-47617 Level 3 Est. Patient 12:02:49 CDT Alina Castaneda MD [facility]17564 Level 3 Est. Patient 19:17:33 CDT Alina Castaneda MD [facility]-75177 Level 3 Est. Patient 13:19:[address] [facility]-08813 Level 3 Est. Patient 08:20:05 CDT Alina Castaneda MD [facility]-57103 Level 3 Est. Patient 15:17:18 CDT Alina Castaneda MD [facility]60585 Level 3 Est. Patient 14:25:36 CHIEF SUPPLY CHAIN OFFICER Marvel [facility]-70608 Level 3 Est. Patient 10:09:15 CHIEF SUPPLY CHAIN OFFICER Marvel [facility]-60303 Level 3 Est. Patient 21:28:43 CDT Alina Castaneda MD [facility]-99478 Level 3 Est. Patient 15:20:[address] [facility]-99643 Level 4 Est. Patient 19:08:12 CDT Alina Castaneda MD [facility]-28638 Level 3 Est. Patient 15:06:[address] [facility]-49097 Level 4 Est. Patient 17:48:15 CDT Alina Castaneda MD [facility]-49006 Level 3 Est. Patient 14:53:49 CDT Alina Castaneda MD [facility]-59431 Level 3 Est. Patient 09:35:16 CDT Alina Castaneda MD [facility]-67205 Level 3 Est. Patient 12:23:22 CDT Alina Castaneda MD [facility]05318 Level 3 Est. Patient 16:19:15 CDT Alina Castaneda MD [facility]-33028 Level 3 Est. Patient 21:39:56 CHIEF SUPPLY CHAIN OFFICER Alina Castaneda MD [facility]-84140 Level 4 Est. Patient 14:12:56 CHIEF SUPPLY CHAIN OFFICER Alina Castaneda MD [facility]-91237 Level 2 Est. Patient 15:34:57 CHIEF SUPPLY CHAIN OFFICER Alina Castaneda MD [facility]-13101 Level 3 Est. Patient 12:17:04 CHIEF SUPPLY CHAIN OFFICER Alina Castaneda MD [facility]-88581 Level 3 Est. Patient 09:18:18 CHIEF SUPPLY CHAIN OFFICER Marvel [facility]-09281 Level 2 Est. Patient 21:50:24 CDT Alina Castaneda MD [facility]-84612 Level 3 Est. Patient 09:17:[address] [facility]-23336 Level 4 Est. Patient 18:54:02 CDT Alina Castaneda MD [facility]-67887 Level 3 Est. Patient 10:47:10 CDT Alina Castaneda MD [facility]-17913 Level 3 Est. Patient 09:22:20 CDT Marvel [facility] CPT-60611 Level 3 Est. Patient 16:39:[address] [facility]-41159 Level 3 Est. Patient 16:05:16 CDT Alina Castaneda MD [facility]-80494 Level 3 Est. Patient 00:29:15 CDT Alina Castaneda MD [facility]37817 Level 3 Est. Patient 10:49:22 CHIEF SUPPLY CHAIN OFFICER [facility] CPT-34110 Level 3 Est. Patient 21:30:19 CHIEF SUPPLY CHAIN OFFICER Alina Castaneda MD [facility] CPT-05038 Level 4 Est. Patient 17:04:11 CHIEF SUPPLY CHAIN OFFICER [facility] Level 3 Est. Patient 15:34:11 CHIEF SUPPLY CHAIN OFFICER [facility]-91265 Level 2 Est. Patient 12:51:58 CHIEF SUPPLY CHAIN OFFICER Alina Castaneda MD [facility] CPT-70542 Level 3 Est. Patient 13:20:01 CHIEF SUPPLY CHAIN OFFICER Alina Castaneda MD [facility] CPT-27232 Level 3 Est. Patient 09:23:35 CDT Alina Castaneda MD [facility] Procedures Code Procedure Name Date Entry Date Standard Description CPT-36027 Bladder Scan 14:39:01 CHIEF SUPPLY CHAIN OFFICER CPT-TCMM Transitional Care Mgmt-Moderate 10:30:19 CHIEF SUPPLY CHAIN OFFICER CPT-72469 Bladder Scan 12:36:44 CDT CPT-31323 Bladder Scan 21:54:06 CDT CPT-G0008 Administration of Influenza Virus Vaccine 13:05:26 CDT CPT-54204 Fluzone Quadrivalent Intramuscular Suspension 0.5 ML 13: 05:26 CDT CPT-75494 Administration single or combination vaccine inc oral 11 :49:51 CDT CPT-54777 Pneumovax 11:49:51 CDT CPT-65165 Ribs unilateral 2V 12:37:22 CHIEF SUPPLY CHAIN OFFICER CPT-64052 Chest 2V Frontal and Lat 17:15:26 CDT CPT-50205 Abx/Therapy Injection 18:54:02 CDT CPT-J0696 Rocephin 1000 mg (Ceftriaxone) 16:00:32 CDT CPT-33313 Chest 2V Frontal and Lat 15:26:45 CDT CPT-02297 Chest 2V Frontal and Lat 10:23:27 CDT CPT-26288 Venipuncture Draw Fee 10:11:00 CDT CPT-62298 Administration single or combination vaccine inc oral 11 :56:38 CDT CPT-71553 Influenza split virus > age 3 11:56:38 CDT CPT-81262 Venipuncture Draw Fee 08:49:54 CHIEF SUPPLY CHAIN OFFICER CPT-57686 EKG Trac and Interp 17:54:19 CHIEF SUPPLY CHAIN OFFICER
--- OUTSIDE RECORDS SUMMARY | 2018-07-02 19:20 | XMS REPORT | Clinical Summary ---
[...] malignant neoplasms of prostate Hypoglycemia 251.2 Resolved Alian Castaneda MD PhD Hypoglycemia, unspecified Diabetes mellitus, 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 Kacey OPTICAL MECHANIC APPRENTICE Benign paroxysmal positional vertigo Vertigo, benign paroxysmal position 386.11 Inactive Mima Kacey OPTICAL MECHANIC APPRENTICE Benign paroxysmal positional vertigo High-risk sexual [...] 10u lunch and supper INSULIN LISPRO (HUMAN) 24975886699 Active Marvel Araceli MARROQUIN Active LATUDA 120 MG ORAL TABS 1 pill by mouth nightly LURASIDONE HCL 74556354575 Active Alina Castaneda MD PhD Active COLACE 100 MG CAPS 1 pill by mouth twice daily, for constipation DOCUSATE SODIUM 37091470911 Active Alina Castaneda MD PhD Active TRUETEST TEST STRP check blood sugars 3x/day GLUCOSE BLOOD 67245104752 Active Malnivia 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 QUALITY PROCESS AUDITOR Active ACCU-CHEK ROSA UZMA Use device to check blood sugars BLOOD GLUCOSE MONITORING SUPPL 40724712975 No Longer Active Marvel 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 QUALITY PROCESS AUDITOR Active ACCU-CHEK ROSA INVITR STRP use strips with device to check blood sugars 3 times daily GLUCOSE BLOOD 73696931724 No Longer Active Brooksnivia Araceli MENDOZAP Active VERAPAMIL HCL ER 180 MG ORAL CR-TABS 1 pill by mouth twice daily, for migraine prevention VERAPAMIL HCL 45595784930 Active Alina Castaneda MD PhD Active CYCLOBENZAPRINE HCL 10 MG TABS 1 tablet by mouth three times daily, scheduled CYCLOBENZAPRINE HCL 89953309347 No Longer Active Alina Castaneda MD PhD Active HUMALOG 100 UNIT/ML SOLN Take 20 units with breakfast, 10u with lunch and suppetr. INSULIN LISPRO (HUMAN) 93038395737 No Longer Active Alina Castaneda MD PhD Active TRUETEST TEST STRP check sugars 4x/day GLUCOSE BLOOD 79266945950 No Longer Active Alina Castaneda MD PhD Active MORPHINE SULFATE 30 MG TABS 1 pill by mouth twice daily, for pain MORPHINE SULFATE 22317724657 Active Alina Castaneda MD PhD Active ACYCLOVIR 400 MG ORAL TABS 1 pill three times daily x 5 days, for cold sore outbreak ACYCLOVIR 44265750442 No Longer Active Alina Castaneda MD PhD Active PENICILLIN V POTASSIUM 500 MG TABS 1 pill by mouth three times daily PENICILLIN V POTASSIUM 16365425212 No Longer Active Alina Castaneda MD PhD Active UROXATRAL 10 MG [id number] Take 1 tablet by mouth daily ALFUZOSIN HCL 30444225560 No Longer Active Alina Castaneda MD PhD Active THIOTHIXENE 5 MG CAPS by mouth twice a day THIOTHIXENE 42225846496 No Longer Active Alina Castaneda MD PhD Active ZYPREXA 7.5 MG TABS 1 at HS OLANZAPINE 04927105826 No Longer Active Alina Castaneda MD PhD Active LEVEMIR 100 UNIT/ML SOLN Take 70 u at 7-8pm INSULIN DETEMIR 02897809329 Active Maliheh Ziglari QUALITY PROCESS AUDITOR Active BD INSULIN SYRINGE 28G X 1/2" 1 ML MISC 1 four times per day INSULIN SYRINGE-NEEDLE U-100 56887794517 Active Mallashondaeh Ziglari QUALITY PROCESS AUDITOR Active TOLTERODINE TARTRATE 2 MG TABS 1 pill twice daily, for bladder TOLTERODINE TARTRATE 68018394755 Active Alina Castaneda MD PhD Active DETROL LA 4 MG [id number]-HCE Take 1 tablet by mouth daily TOLTERODINE TARTRATE 73454253545 No Longer Active Alina Castaneda MD PhD Active HYDROCODONE-ACETAMINOPHEN 5-325 MG TABS 2 tabs by mouth three times daily as needed for pain HYDROCODONE-ACETAMINOPHEN 61084106483 Active Alina Castaneda MD PhD Active TERESE CONTOUR TEST STRP monitor blood sugars 3x/day GLUCOSE BLOOD 96349136009 No Longer Active Alina Castaneda MD PhD Active EQL TRUETEST TEST STRP Test blood sugar TID GLUCOSE BLOOD 08231637684 No Longer Active Alina Castaneda MD PhD Active FLUTICASONE PROPIONATE 50 MCG/ACT SUSP 2 sprays each nostril qDay x 30 days FLUTICASONE PROPIONATE 45382330838 No Longer Active Alina Castaneda MD PhD Active IBUPROFEN 200 MG TABS 1 Q 6 hr. PRN IBUPROFEN 17817386076 No Longer Active Alina Castaneda MD PhD Active NIACIN ER 500 MG CR-TABS 4 qHS (for triglycerides) NIACIN 50418330406 No Longer Active Alina Castaneda MD PhD Active ALFUZOSIN HCL ER 10 MG [id number]-[id number] 1 tablet daily ALFUZOSIN HCL 15200589120 Active Vanessa Hickey MD Active CLONAZEPAM 1 MG TABS 1 pill by mouth three times daily CLONAZEPAM 66821126526 Active Alina Castaneda MD PhD Active LOVAZA 1 GM CAPS 4 daily (for triglycerides) [id number] ETHYL ESTERS 62485268358 Active Alina Castaneda MD PhD Active SAPHRIS 5 MG SUBL by mouth twice a day ASENAPINE MALEATE 94612601759 No Longer Active Marvel MARROQUIN Active ACETAMINOPHEN 500 MG TABS 2 Q 6 hr. PRN ACETAMINOPHEN 60750807916 No Longer Active Marvel MARROQUIN Active ORPHENADRINE CITRATE ER 100 MG [id number] 1 every 12 hr. as needed ORPHENADRINE CITRATE 93763484238 No Longer Active Alina Castaneda MD PhD Active NIACIN CR 500 MG CR-TABS 2 qHS NIACIN 46187706624 No Longer Active Alina Castaneda MD PhD Active AMOXICILLIN 500 MG CAPS 2 po BID x 10 days AMOXICILLIN 33951765004 No Longer Active Alina Castaneda MD PhD Active HYDROCODONE-ACETAMINOPHEN 7.5-325 MG TABS 1 four times a day as needed for pain HYDROCODONE-ACETAMINOPHEN 53988377523 No Longer Active Alina Castaneda MD PhD Active METFORMIN HCL ER 500 MG [id number] Take three tablets by mouth everyday METFORMIN HCL 02970819628 Active Marvel Mackenzieglestela QUALITY PROCESS AUDITOR Active DOXEPIN HCL 10 MG CAPS Take 1 tablet by mouth daily DOXEPIN HCL 21581031923 No Longer Active Salina Han [facility] Active NAVANE 10 MG CAPS 1/2 tablet twice a day THIOTHIXENE No Longer Active Salina Han A Active CYCLOBENZAPRINE HCL 10 MG TABS 1/2 tablet by mouth every 8 hours as needed for muscle spasms CYCLOBENZAPRINE HCL 66943753007 No Longer Active Alina Castaneda MD PhD Active BACTROBAN 2 % CREAM apply to ear and nose twice daily MUPIROCIN CALCIUM 22680860514 No Longer Active Alina Castaneda MD PhD Active HYDROCODONE-ACETAMINOPHEN 5-325 MG TABS take one tablet by mouth every four hours as needed for pain HYDROCODONE-ACETAMINOPHEN 98525379008 No Longer Active Alina Castaneda MD PhD Active ZOLPIDEM TARTRATE 10 MG TABS take at bedtime ZOLPIDEM TARTRATE 69165426125 Active Alina Castaneda MD PhD Active ZYPREXA 5 MG TABS take one tablet by mouth every evening OLANZAPINE 04920800965 No Longer Active Alina Castaneda MD PhD Active ALBUTEROL SULFATE 0.083 % NEBU SOLN one vial per nebulizer TID and PRN cough/ soa ALBUTEROL SULFATE 33687832693 No Longer Active Alina Castaneda MD PhD Active GUAIFENESIN 600 MG [id number]-[id number] 1 tablet by mouth twice daily if needed for cough GUAIFENESIN 79490428206 No Longer Active Marvel Charles [facility] Active AZITHROMYCIN 500 MG SOLR 1 po q day AZITHROMYCIN 74508539159 No Longer Active Alina Castaneda MD PhD Active METOPROLOL SUCCINATE 100 MG [id number] 1 by mouth daily for blood pressure METOPROLOL SUCCINATE 97689309402 Active Alina Castanead MD PhD Active PROMETHAZINE-CODEINE 6.25-10 MG/5ML SYRP 1 tsp po q 6 hours prn cough PROMETHAZINE-CODEINE 02888785380 No Longer Active Alina Castaneda MD PhD Active CEFDINIR 300 MG CAPS by mouth twice a day CEFDINIR 53567623594 No Longer Active Alina Castaneda MD PhD Active METFORMIN HCL 500 MG [id number]-WBG Take 3 tablets by mouth everyday METFORMIN HCL 04300728144 No Longer Active Alina Castaneda MD PhD Active LEVEMIR 100 UNIT/ML SOLN 90 units SQ qHS INSULIN DETEMIR 79076602464 No Longer Active Marvel MARROQUIN Active TOPROL XL 100 MG [id number]-WQI 1 @ HS METOPROLOL SUCCINATE 88020896934 No Longer Active Marvel MARROQUIN Active ALLOPURINOL 300 MG TABS Take one by mouth daily ALLOPURINOL 87697418162 Active Alina Castaneda MD PhD Active ZYPREXA 10 MG TABS Take one by mouth daily OLANZAPINE 84621981993 No Longer Active Alina Castaneda MD PhD Active NOVOLOG 100 UNIT/ML SOLN 40 units with every meal INSULIN ASPART 42510014227 No Longer Active Alina Castaneda MD PhD Active VERAPAMIL HCL CR 120 MG TAB CR 1 qPM VERAPAMIL HCL 09397153704 No Longer Active Salina Han A Active ZYPREXA 15 MG TABS Take 1 tablet by mouth daily OLANZAPINE 24289200389 No Longer Active Marvel MARROQUIN Active LISINOPRIL 20 MG TABS 1 BID LISINOPRIL 39223211902 Active Alina Castaneda MD PhD Active ALBUTEROL SULFATE (2.5 MG/3ML) 0.083% NEBU 1 neb tid and prn cough ALBUTEROL SULFATE 64494225079 No Longer Active Alina Castaneda MD PhD Active FLUVOXAMINE MALEATE 100 MG TABS Take one (1) tablet by mouth am, 1/2 at noon, 1 pm FLUVOXAMINE MALEATE 59516979665 Active Alina Castaneda MD PhD Active TRAVATAN Z 0.004 % SOLN 1 gtt each eye daily TRAVOPROST 99050587999 Active CRYSTAL Suarez Active LANTUS 100 UNIT/ML SOLN 60 units sq q hs INSULIN GLARGINE 37901941540 No Longer Active CRYSTAL Suarez Active ALBUTEROL SULFATE (2.5 MG/3ML) 0.083% NEBU 1 neb tid and prn cough ALBUTEROL SULFATE (2.5 MG/3ML) 0.083% NEBU 627623 ALBUTEROL SULFATE Inactive ZYPREXA 15 MG TABS Take 1 tablet by mouth daily ZYPREXA 15 MG TABS 777480 OLANZAPINE Inactive VERAPAMIL HCL CR 120 MG TAB CR 1 qPM VERAPAMIL HCL CR 120 MG TAB CR VERAPAMIL HCL Inactive ZYPREXA 10 MG TABS Take one by mouth daily ZYPREXA 10 MG TABS 703075 OLANZAPINE Inactive TOPROL XL 100 MG [id number] 1 @ HS TOPROL XL 100 MG [id number]-OVR METOPROLOL SUCCINATE Inactive LEVEMIR 100 UNIT/ML SOLN 90 units SQ qHS LEVEMIR 100 UNIT/ML SOLN INSULIN DETEMIR Inactive PROMETHAZINE-CODEINE 6.25-10 MG/5ML SYRP 1 tsp po q 6 hours prn cough PROMETHAZINE-CODEINE 6.25-10 MG/5ML SYRP 709582 PROMETHAZINE- CODEINE Inactive GUAIFENESIN 600 MG [id number]-VYG 1 tablet by mouth twice daily if needed for cough GUAIFENESIN 600 MG [id number] GUAIFENESIN Inactive ALBUTEROL SULFATE 0.083 % NEBU SOLN one vial per nebulizer TID and PRN cough/ soa ALBUTEROL SULFATE 0.083 % NEBU SOLN 126540 ALBUTEROL SULFATE Inactive ZYPREXA 5 MG TABS take one tablet by mouth every evening ZYPREXA 5 MG TABS 105645 OLANZAPINE Inactive HYDROCODONE-ACETAMINOPHEN 5-325 MG TABS take one tablet by mouth every four hours as needed for pain HYDROCODONE-ACETAMINOPHEN 5-325 MG TABS 746041 HYDROCODONE-ACETAMINOPHEN Inactive BACTROBAN 2 % CREAM apply to ear and nose twice daily BACTROBAN 2 % CREAM 022912 MUPIROCIN CALCIUM Inactive CYCLOBENZAPRINE HCL 10 MG TABS 1/2 tablet by mouth every 8 hours as needed for muscle spasms CYCLOBENZAPRINE HCL 10 MG TABS 039264 CYCLOBENZAPRINE HCL Inactive NAVANE 10 MG CAPS 1/2 tablet twice a day NAVANE 10 MG CAPS THIOTHIXENE Inactive DOXEPIN HCL 10 MG CAPS Take 1 tablet by mouth daily DOXEPIN HCL 10 MG CAPS 9439792 DOXEPIN HCL Inactive HYDROCODONE-ACETAMINOPHEN 7.5-325 MG TABS 1 four times a day as needed for pain HYDROCODONE-ACETAMINOPHEN 7.5-325 MG TABS 646452 HYDROCODONE-ACETAMINOPHEN Inactive NIACIN CR 500 MG CR-TABS 2 qHS NIACIN CR 500 MG CR- TABS NIACIN Inactive ORPHENADRINE CITRATE ER 100 MG [id number] 1 every 12 hr. as needed ORPHENADRINE CITRATE ER 100 MG [id number]-[id number] ORPHENADRINE CITRATE Inactive ACETAMINOPHEN 500 MG TABS 2 Q 6 hr. PRN ACETAMINOPHEN 500 MG TABS 840990 ACETAMINOPHEN Inactive SAPHRIS 5 MG SUBL by mouth twice a day SAPHRIS 5 MG SUBL ASENAPINE MALEATE Inactive NIACIN ER 500 MG CR-TABS 4 qHS (for triglycerides) NIACIN ER 500 MG CR-TABS NIACIN Inactive IBUPROFEN 200 MG TABS 1 Q 6 hr. PRN IBUPROFEN 200 MG TABS 809796 IBUPROFEN Inactive FLUTICASONE PROPIONATE 50 MCG/ACT SUSP 2 sprays each nostril qDay x 30 days FLUTICASONE PROPIONATE 50 MCG/ACT SUSP 781383 FLUTICASONE PROPIONATE Inactive EQL TRUETEST TEST STRP Test blood sugar TID EQL TRUETEST TEST STRP GLUCOSE BLOOD Inactive TERESE CONTOUR TEST STRP monitor blood sugars 3x/day TERESE CONTOUR TEST STRP GLUCOSE BLOOD Inactive DETROL LA 4 MG [id number]-NPF Take 1 tablet by mouth daily DETROL LA 4 MG [id number] TOLTERODINE TARTRATE Inactive ZYPREXA 7.5 MG TABS 1 at HS ZYPREXA 7.5 MG TABS 965085 OLANZAPINE Inactive THIOTHIXENE 5 MG CAPS by mouth twice a day THIOTHIXENE 5 MG CAPS 442196 THIOTHIXENE Inactive UROXATRAL 10 MG EC11O-JTG Take 1 tablet by mouth daily UROXATRAL 10 MG [id number] ALFUZOSIN HCL Inactive ACYCLOVIR 400 MG ORAL TABS 1 pill three times daily x 5 days, for cold sore outbreak ACYCLOVIR 400 MG ORAL TABS 533134 ACYCLOVIR Inactive TRUETEST TEST STRP check sugars 4x/day TRUETEST TEST STRP GLUCOSE BLOOD Inactive HUMALOG 100 UNIT/ML SOLN Take 20 units with breakfast, 10u with lunch and suppetr. HUMALOG 100 UNIT/ML SOLN INSULIN LISPRO ( HUMAN) Inactive CYCLOBENZAPRINE HCL 10 MG TABS 1 tablet by mouth three times daily, scheduled CYCLOBENZAPRINE HCL 10 MG TABS 682453 CYCLOBENZAPRINE HCL Inactive ACCU-CHEK ROSA INVITR STRP use strips with device to check blood sugars 3 times daily ACCU-CHEK ROSA INVITR STRP GLUCOSE BLOOD Inactive ACCU-CHEK ROSA UZMA Use device to check blood sugars ACCU-CHEK ROSA UZMA BLOOD GLUCOSE MONITORING SUPPL Inactive CEFDINIR 300 MG CAPS by mouth twice a day CEFDINIR 300 MG CAPS 360954 CEFDINIR Inactive AZITHROMYCIN 500 MG SOLR 1 po q day AZITHROMYCIN 500 MG SOLR 096468 AZITHROMYCIN Inactive AMOXICILLIN 500 MG CAPS 2 po BID x 10 days AMOXICILLIN 500 MG CAPS 733364 AMOXICILLIN Inactive PENICILLIN V POTASSIUM 500 MG TABS 1 pill by mouth three times daily PENICILLIN V POTASSIUM 500 MG TABS 452004 PENICILLIN V POTASSIUM Inactive Immunizations Vaccine Administration [...] Fluvirin, Fluarix, Agriflu(>=18 yo)) Fluzone (>3 yrs.) [TWY225] Influenza, seasonal, injectable pneumococcal immunization administered Pneumovax [...] HGBA1C - Chemistry sodium, serum 131 mmol/L 373-701 7579/12/30 potassium, serum 5.0 mmol/L 3.5-5.2 chloride, serum 95 mmol/L 98-107 carbon dioxide, venous blood 26.7 mmol/L 21.0-32.0 blood glucose 112 mg/dL 65-110 calcium, serum 9.2 mg/dL 8.5-10.1 urea nitrogen, blood 12 mg/dL 7-18 creatinine, serum 1.10 mg/dL 0.60-1.30 hemoglobin A1C, blood, as % of total hemoglobin 5.8 % 4.3-6.0 Lab Report: Basic Metabolic Panel, HGBA1C, MICROALBUMIN - Chemistry sodium, serum 137 mmol/L 981-142 1615/05/19 potassium, serum 5.2 mmol/L 3.5-5.2 chloride, serum [...] microalbumin, urine 10 0-19 Lab Report: Chlamydia/GC APTIMA/61478, HIV-1/2 Agn/Dominga/20519, RPR (DX) W ... - Chemistry hepatitis B surface antigen NON-REACTIVE NON-REACTIVE Lab Report: Chlamydia/GC APTIMA/88551, HIV-1/2 Agn/Dominga/42329, RPR (DX) W ... - Lab chlamydia DNA probe NOT DETECTED NOT DETECTED Lab Report: Chlamydia/GC APTIMA/52789, HIV-1/2 Agn/Dominga/93817, RPR (DX) W ... - Microbiology Neisseria gonorrhoeae DNA probe NOT DETECTED NOT DETECTED Lab Report: Chlamydia/GC APTIMA/04991, HIV-1/2 Agn/Dominga/85020, RPR (DX) W ... - Serology rapid plasma reagin antibody titer NON-REACTIVE NON-REACTIVE Lab Report: Comp. Metabolic Panel - Chemistry sodium, serum 127 mmol/L 804-917 9921/10/27 potassium, serum 4.1 mmol/L 3.5-5.2 chloride, serum [...] CBC - Chemistry cholesterol, serum 131 mg/dL 734-169 5799/06/03 triglyceride, serum, fasting 383 mg/dL 30-200 HDL [...] mg/dL Encounters Code Encounter Date Provider Facility CPT-06457 Level 3 Est. Patient 14:46:15 CDT Vanessa Hickey MD [facility] CPT-94754 Level 3 Est. Patient 09:34:56 CDT Alina Castaneda MD PhD [facility] CPT-98387 Level 3 Est. Patient 21:40:19 CDT Mima Erazo APRN [facility] CPT-98588 Level 3 Est. Patient 09:26:40 CDT Marvel MARROQUIN [facility] CPT-92963 Level 3 Est. Patient 12:36:43 CDT Vanessa Hickey MD [facility] CPT-23638 Level 3 Est. Patient 12:57:49 CDT Vanessa Hickey MD [facility] CPT-33255 Level 3 Est. Patient 00:28:25 CDT Alina Castaneda MD [facility]-88439 Level 2 Est. Patient 12:52:14 CDT Alina Castaneda MD [facility]-06344 Level 3 Est. Patient 11:51:18 COMMUNITY EDUCATION SPECIALIST Alina Castaneda MD [facility]-40533 Level 3 Est. Patient 10:09:22 COMMUNITY EDUCATION SPECIALIST Alina Castaneda MD [facility]-17382 Level 3 Est. Patient 14:36:26 COMMUNITY EDUCATION SPECIALIST Marvel Charles [facility]-66428 Level 3 Est. Patient 13:34:47 COMMUNITY EDUCATION SPECIALIST Alina Castaneda MD [facility]-76063 Level 3 Est. Patient 19:52:08 COMMUNITY EDUCATION SPECIALIST Alina Castaneda MD [facility]-08713 Level 3 Est. Patient 10:01:51 COMMUNITY EDUCATION SPECIALIST [facility] 3 Est. Patient 21:54:06 CDT Vanessa Hickey MD [facility]-35626 Level 3 Est. Patient 08:54:46 CDT Alina Castaneda MD [facility]-55708 Level 3 Est. Patient 09:32:11 [facility]-71388 Level 3 Est. Patient 12:02:49 CDT Alina Castaneda MD [facility]-56179 Level 3 Est. Patient 19:17:33 CDT Alina Castaneda MD [facility]-55369 Level 3 Est. Patient 13:19:10 CDT Marvel [facility]-87349 Level 3 Est. Patient 08:20:05 CDT Alina Castaneda MD [facility]93291 Level 3 Est. Patient 15:17:18 CDT Alina Castaneda MD [facility]-60557 Level 3 Est. Patient 14:25:36 COMMUNITY EDUCATION SPECIALIST Marvel [facility]-90239 Level 3 Est. Patient 10:09:15 COMMUNITY EDUCATION SPECIALIST Marvel [facility]-50361 Level 3 Est. Patient 21:28:43 CDT Alina Castaneda MD [facility]-54154 Level 3 Est. Patient 15:20:11 CDT Marvel Thurstonestela [facility]-83286 Level 4 Est. Patient 19:08:12 CDT Alina Castaneda MD [facility]-53343 Level 3 Est. Patient 15:06:39 [facility]T [facility]30841 Level 4 Est. Patient 17:48:15 CDT Alina Castaneda MD [facility]-91736 Level 3 Est. Patient 14:53:49 CDT Alina Castaneda MD [facility]-07105 Level 3 Est. Patient 09:35:16 CDT Alina Castaneda MD [facility]-89107 Level 3 Est. Patient 12:23:22 CDT Alina Castaneda MD [facility]-43666 Level 3 Est. Patient 16:19:15 CDT Alina Castaneda MD [facility]-60420 Level 3 Est. Patient 21:39:56 COMMUNITY EDUCATION SPECIALIST Alina Castaneda MD [facility]-07631 Level 4 Est. Patient 14:12:56 COMMUNITY EDUCATION SPECIALIST Alina Castaneda MD [facility]16353 Level 2 Est. Patient 15:34:57 COMMUNITY EDUCATION SPECIALIST Alina Castaneda MD [facility]-38575 Level 3 Est. Patient 12:17:04 COMMUNITY EDUCATION SPECIALIST Alina Castaneda MD [facility]-71931 Level 3 Est. Patient 09:18:18 COMMUNITY EDUCATION SPECIALIST Marvel Charles [facility]-62099 Level 2 Est. Patient 21:50:24 CDT Alina Castaneda MD [facility]63558 Level 3 Est. Patient 09:17:28 CDT Marvel Charles [facility]-68661 Level 4 Est. Patient 18:54:02 CDT Alina Castaneda MD [facility]-43666 Level 3 Est. Patient 10:47:10 CDT Alina Castaneda MD [facility]-41939 Level 3 Est. Patient 09:22:20 CDT Marvel Charles [facility]-83123 Level 3 Est. Patient 16:39:43 CDT Marvel Charles [facility]-57291 Level 3 Est. Patient 16:05:16 CDT Alina Castaneda MD [facility]-03319 Level 3 Est. Patient 00:29:15 CDT Alina Castaneda MD [facility]-11849 Level 3 Est. Patient 10:49:22 COMMUNITY EDUCATION SPECIALIST Marvel Charles [facility]-35020 Level 3 Est. Patient 21:30:19 COMMUNITY EDUCATION SPECIALIST Alina Castaneda MD [facility]-27885 Level 4 Est. Patient 17:04:11 COMMUNITY EDUCATION SPECIALIST Marvel Charles [facility] CPT-15961 Level 3 Est. Patient 15:34:11 COMMUNITY EDUCATION SPECIALIST Marvel Charles [facility] CPT-70540 Level 2 Est. Patient 12:51:58 COMMUNITY EDUCATION SPECIALIST Alina Castaneda MD PhD [facility] CPT-07305 Level 3 Est. Patient 13:20:01 COMMUNITY EDUCATION SPECIALIST Alina Castaneda MD PhD [facility] CPT-22020 Level 3 Est. Patient 09:23:35 CDT Alina Castaneda MD PhD [facility] Procedures Code Procedure Name Date Entry Date Standard Description CPT-43834 Bladder Scan 12:36:44 CDT CPT-19767 Bladder Scan 21:54:06 CDT CPT-G0008 Administration of Influenza Virus Vaccine 13:05:26 CDT CPT-66415 Fluzone Quadrivalent Intramuscular Suspension 0.5 ML 13: 05:26 CDT CPT-97184 Administration single or combination vaccine inc oral 11 :49:51 CDT CPT-97088 Pneumovax 11:49:51 CDT CPT-54765 Ribs unilateral 2V 12:37:22 COMMUNITY EDUCATION SPECIALIST CPT-08680 Chest 2V Frontal and Lat 17:15:26 CDT CPT-17564 Abx/Therapy Injection 18:54:02 CDT CPT-J0696 Rocephin 1000 mg (Ceftriaxone) 16:00:32 CDT CPT-57875 Chest 2V Frontal and Lat 15:26:45 CDT CPT-59808 Chest 2V Frontal and Lat 10:23:27 CDT CPT-53440 Venipuncture Draw Fee 10:11:00 CDT CPT-83782 Administration single or combination vaccine inc oral 11 :56:38 CDT CPT-42592 Influenza split virus > age 3 11:56:38 CDT CPT-40143 Venipuncture Draw Fee 08:49:54 COMMUNITY EDUCATION SPECIALIST CPT-54686 EKG Trac and Interp 17:54:19 COMMUNITY EDUCATION SPECIALIST
--- OUTSIDE RECORDS SUMMARY | 2018-07-02 19:21 | XMS REPORT | Clinical Summary ---
Author Author Admin, TERELL Organization [facility] Address Unknown Phone Unavailable Allergies, Adverse Reactions, [...] and unspecified hyperlipidemia HYPERTENSION 401.9 Correction Alina Castaenda MD PhD Unspecified essential hypertension URI 465.9 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 Erazo MANAGEMENT RETAIL INTERN Benign paroxysmal positional vertigo Vertigo, benign paroxysmal position 386.11 Inactive Mima Erazo MANAGEMENT RETAIL INTERN Benign paroxysmal positional vertigo High-risk sexual behavior V69.2 Active Alina Castaneda MD PhD High-risk sexual behavior Erectile dysfunction 302.72 Active Alina Castaneda MD PhD Psychosexual dysfunction with inhibited sexual excitement Constipation 564.00 Active Alina Castaneda MD PhD Constipation, unspecified Skin lesion 709.9 Active Alina Castaneda MD PhD Unspecified disorder of skin and subcutaneous tissue Malaise and fatigue 780.79 Active Cherelle Speaks MANAGEMENT RETAIL INTERN Other malaise and fatigue Diarrhea 787.91 Active Cherelle Speaks MANAGEMENT RETAIL INTERN Diarrhea PHARYNGITIS 462 Active Cherelle Speaks MANAGEMENT RETAIL INTERN Acute pharyngitis Colitis 558.9 Active Mima Erazo MANAGEMENT RETAIL INTERN Other and unspecified noninfectious gastroenteritis and colitis Chronic pain - on daily narcotics 338.29 Active Mason Loredo MD Other chronic pain Nocturia Active Vanessa Hcikey MD Nocturia Symptom, polydipsia 783.5 Active Vanessa [...] Patient Instruction EFFEXOR XR 37.5 MG ORAL [id number] Take one by mouth daily VENLAFAXINE HCL 88895327682 Active Mima Vadimum ALBAN Active TRAVATAN Z 0.004 % OPHTH SOLN 1 drop each eye daily TRAVOPROST 09999230501 Active Mima Yokum [employer]NAGEMENT RETAIL INTERN Active FLUVOXAMINE MALEATE 50 MG ORAL TABS 1 tab by mouth daily FLUVOXAMINE MALEATE 91265082764 No Longer Active Mima Vadimum ALBAN Active MORPHINE SULFATE ER 30 MG ORAL CR-TABS Take one capsule BID MORPHINE SULFATE 17316167022 Active Mima Yokum MANAGEMENT RETAIL INTERN Active TRUEPLUS LANCETS 30G MISC 3x a day LANCETS 22868382402 Active Marvel Charles BASKET PERSON Active TRUE METRIX METER W/DEVICE KIT Check blood sugars 3x/day BLOOD GLUCOSE MONITORING SUPPL 96234608297 Active Marvel Mackenzieglari BASKET PERSON Active TRUE METRIX BLOOD GLUCOSE TEST INVITR STRP Check blood sugars 3x/day. GLUCOSE BLOOD 85669288139 Active Marvel Mackenzieglari BASKET PERSON Active VITAMIN D 2000 UNIT ORAL CAPS Take one by mouth daily CHOLECALCIFEROL 57376559609 Active Mima Yokum MANAGEMENT RETAIL INTERN Active LATUDA 60 MG ORAL TABS Take one by mouth daily LURASIDONE HCL 13975257406 No Longer Active Mima Yokum MANAGEMENT RETAIL INTERN Active HUMALOG KWIKPEN 100 UNIT/ML SC SOPN sliding scale if needed INSULIN LISPRO (HUMAN) 06799059336 Active Mima Yokum MANAGEMENT RETAIL INTERN Active TRAZODONE HCL 100 MG TABS 1 every night to prevent headaches TRAZODONE HCL 62177923975 Active Gabrielle Madl FARM MECHANIC Active LATUDA 60 MG ORAL TABS 1 tab daily LURASIDONE HCL 90762404986 Active Gabrielle Madl FARM MECHANIC Active CLONAZEPAM 1 MG TABS 1 pill by mouth three times daily CLONAZEPAM 34242902090 Active Gabrielle Madl FARM MECHANIC Active [facility] MILK OF MAGNESIA 400 MG/5ML ORAL SUSP 30ml by mouth bid prn MAGNESIUM HYDROXIDE 94414156463 Active Mason Loredo MD Active TYLENOL 8 HOUR 650 MG ORAL CR-TABS 1 tab QID prn ACETAMINOPHEN 28528533360 Active Mason Loredo MD Active MYLANTA GAS RELIEF MAXIMUM STR 125 MG ORAL CAPS 30cc every 4 hours prn 12/01 SIMETHICONE 01377997844 Active Mason Loredo MD Active IMODIUM A-D 2 MG ORAL TABS 1 tab QID as needed LOPERAMIDE HCL 99638998900 Active Mason Loredo MD Active TRAVATAN Z 0.004 % SOLN 1 gtt each eye daily TRAVOPROST 05868080133 No Longer Active Mason Loredo MD Active LISINOPRIL 20 MG TABS 1 BID LISINOPRIL 80135287005 No Longer Active Mason Loredo MD Active LEVEMIR FLEXTOUCH 100 UNIT/ML SC SOPN 60 units SQ each evening, for diabetes INSULIN DETEMIR 59735654984 Active Mima Erazo APRN Active ZOLPIDEM TARTRATE 10 MG TABS take at bedtime ZOLPIDEM TARTRATE 90311068681 No Longer Active Mason Loredo MD Active HYDROCODONE-ACETAMINOPHEN 5-325 MG TABS 2 tabs by mouth three times daily for pain HYDROCODONE-ACETAMINOPHEN 26475803198 No Longer Active Mason Loredo MD Active ZOFRAN 4 MG TABS 1 po q4hr PRN Nausea ONDANSETRON HCL 59892778041 No Longer Active Mason Loredo MD Active LOMOTIL 2.5-0.025 MG ORAL TABS take 1-2 tabs PO after each stool, no more than 8 in 24 hours DIPHENOXYLATE-ATROPINE 71001962564 No Longer Active Mason Loredo MD Active COLACE 100 MG CAPS 1 pill by mouth twice daily, for constipation DOCUSATE SODIUM 98118058483 No Longer Active Mima Erazo APRN Active FLONASE ALLERGY RELIEF 50 MCG/ACT NASAL SUSP One spray each nostril BID x 1 week then daily FLUTICASONE PROPIONATE 17871638280 Active Mima Erazo APRN Active BD PEN NEEDLE MINI U/F 31G X 5 MM MISC 4 a day INSULIN PEN NEEDLE 29351696867 Active Marvel MARROQUIN Active AMITIZA 24 MCG ORAL CAPS Take one capsule BID for constipation LUBIPROSTONE 00898767509 Active Mima Erazo APRN Active TRUEPLUS LANCETS 30G MISC 3 a day LANCETS 87862481039 Active Marvel MARROQUIN Active TOLTERODINE TARTRATE 2 MG TABS 1 pill twice daily, for bladder TOLTERODINE TARTRATE 10787168223 No Longer Active Vanessa Hickey MD Active AMITIZA 24 MCG ORAL CAPS Take one capsule BID for constipation. LUBIPROSTONE 81355294879 No Longer Active Vanessa Hickey MD Active FLUVOXAMINE MALEATE 100 MG ORAL TABS take one tab every AM et HS, and take 1/ 2 tab at noon FLUVOXAMINE MALEATE 59078720751 Active Grace Azam RMA Active METOPROLOL SUCCINATE 100 MG [id number] 1 by mouth daily for blood pressure METOPROLOL SUCCINATE 93600290989 No Longer Active Grace Azam RMA Active METFORMIN HCL ER 500 MG [id number] Take three tablets by mouth everyday METFORMIN HCL 41562740835 No Longer Active Grace Azam RMA Active LOVAZA 1 GM CAPS 4 daily (for triglycerides) OMEGA-3- ACID ETHYL ESTERS 56221415076 No Longer Active Grace Azam RMA Active TRAZODONE HCL 100 MG ORAL TABS 1 tab by mouth for sleep TRAZODONE HCL 41085197689 No Longer Active Grace Azam RMA Active NOVOFINE 32G X 6 MM MISC use one four times per day INSULIN PEN NEEDLE 12953746116 No Longer Active Grace Azam RMA Active BACTROBAN 2 % CREAM Apply to affected area BID for up to 10 days MUPIROCIN CALCIUM 98645940383 No Longer Active Grace Azam RMA Active KEFLEX 500 MG CAP 1 po BID x 7 days CEPHALEXIN 04159624218 No Longer Active Cherelle Avila APRN Active FLUVOXAMINE MALEATE 100 MG TABS Take one (1) tablet by mouth am, 1/2 at noon FLUVOXAMINE MALEATE 38801553060 No Longer Active Mimacecily Erazo MANAGEMENT RETAIL INTERN Active CORICIDIN HBP CONGESTION/COUGH 10-200 MG ORAL CAPS Take as directed on box as needed for cold/flu symptoms DEXTROMETHORPHAN-GUAIFENESIN 45621074035 Active Cherelle Speaks MANAGEMENT RETAIL INTERN Active OMEGA-3 300 MG ORAL CAPS 4 caps by mouth daily OMEGA-3 FATTY ACIDS 24418867469 Active Mima Yokum MANAGEMENT RETAIL INTERN Active FLUVOXAMINE MALEATE 100 MG ORAL TABS Take 1/2 tab at noon FLUVOXAMINE MALEATE 26105112503 No Longer Active Cherelle Avila ALBAN Active [facility] LUBRICANT EYE DROPS 0.4-0.3 % OPHTH SOLN POLYETHYL GLYCOL-PROPYL GLYCOL 73869527694 Active Mima Erazo MANAGEMENT RETAIL INTERN Active MIRALAX POWD 17g by mouth daily, for constipation POLYETHYLENE GLYCOL 3350 74672863616 Active Alina Castaneda MD PhD Active TRUETEST TEST STRP check blood sugars 3x/day GLUCOSE BLOOD 57197368979 Active Maliheh Ziglari BASKET PERSON Active ACCU-CHEK ROSA UZMA Use device to check blood sugars BLOOD GLUCOSE MONITORING SUPPL 88539611734 No Longer Active Maliheh Ziglari BASKET PERSON Active ACCU-CHEK ROSA INVITR STRP use strips with device to check blood sugars 3 times daily GLUCOSE BLOOD 38420473550 No Longer Active MalWotoeh Ziglari BASKET PERSON Active VERAPAMIL HCL ER 180 MG ORAL CR-TABS 1 pill by mouth twice daily, for migraine prevention VERAPAMIL HCL 26195064038 Active Mima Erazo APRN Active CYCLOBENZAPRINE HCL 10 MG TABS 1 tablet by mouth three times daily, scheduled CYCLOBENZAPRINE HCL 49755910624 No Longer Active Alina Castaneda MD PhD Active HUMALOG 100 UNIT/ML SOLN Take 20 units with breakfast, 10u with lunch and suppetr. INSULIN LISPRO (HUMAN) 89086228462 No Longer Active Alina Castaneda MD PhD Active TRUETEST TEST STRP check sugars 4x/day GLUCOSE BLOOD 40892363500 No Longer Active Alina Castaneda MD PhD Active MORPHINE SULFATE 30 MG TABS 1 pill by mouth twice daily, for pain MORPHINE SULFATE 98509405833 No Longer Active Mason Loredo MD Active ACYCLOVIR 400 MG ORAL TABS 1 pill three times daily x 5 days, for cold sore outbreak ACYCLOVIR 15431398544 No Longer Active Alina Castaneda MD PhD Active PENICILLIN V POTASSIUM 500 MG TABS 1 pill by mouth three times daily PENICILLIN V POTASSIUM 50564155905 No Longer Active Alina Castaneda MD PhD Active UROXATRAL 10 MG [id number] Take 1 tablet by mouth daily ALFUZOSIN HCL 03771724661 No Longer Active Alina Castaneda MD PhD Active THIOTHIXENE 5 MG CAPS by mouth twice a day THIOTHIXENE 46532349238 No Longer Active Alina Castaneda MD PhD Active ZYPREXA 7.5 MG TABS 1 at HS OLANZAPINE 57590189752 No Longer Active Alina Castaneda MD PhD Active BD INSULIN SYRINGE 28G X 1/2" 1 ML MISC 1 four times per day INSULIN SYRINGE-NEEDLE U-100 51150721534 Active Marvel Charles BASKET PERSON Active DETROL LA 4 MG [id number] Take 1 tablet by mouth daily TOLTERODINE TARTRATE 63274992343 No Longer Active Alina Castaneda MD PhD Active TERESE CONTOUR TEST STRP monitor blood sugars 3x/day GLUCOSE BLOOD 81320438880 No Longer Active Alina Castaneda MD PhD Active EQL TRUETEST TEST STRP Test blood sugar TID GLUCOSE BLOOD 80566414218 No Longer Active Alina Castaneda MD PhD Active FLUTICASONE PROPIONATE 50 MCG/ACT SUSP 2 sprays each nostril qDay x 30 days FLUTICASONE PROPIONATE 34393404023 No Longer Active Alina Castaneda MD PhD Active IBUPROFEN 200 MG TABS 1 Q 6 hr. PRN IBUPROFEN 24865814726 No Longer Active Alina Castaneda MD PhD Active NIACIN ER 500 MG CR-TABS 4 qHS (for triglycerides) NIACIN 41467455207 No Longer Active Alina Castaneda MD PhD Active ALFUZOSIN HCL ER 10 MG [id number] 1 tablet daily ALFUZOSIN HCL 62728873368 Active Mima Erazo MANAGEMENT RETAIL INTERN Active SAPHRIS 5 MG SUBL by mouth twice a day ASENAPINE MALEATE 92834648690 No Longer Active Marvel Mackenzieglari BASKET PERSON Active ACETAMINOPHEN 500 MG TABS 2 Q 6 hr. PRN ACETAMINOPHEN 68750600112 No Longer Active Maliheh Ziglari BASKET PERSON Active ORPHENADRINE CITRATE ER 100 MG [id number] 1 every 12 hr. as needed ORPHENADRINE CITRATE 17438861184 No Longer Active Alina Castaneda MD PhD Active NIACIN CR 500 MG CR-TABS 2 qHS NIACIN 39366064822 No Longer Active Alina Castaneda MD PhD Active AMOXICILLIN 500 MG CAPS 2 po BID x 10 days AMOXICILLIN 17565414687 No Longer Active Alina Castaneda MD PhD Active HYDROCODONE-ACETAMINOPHEN 7.5-325 MG TABS 1 four times a day as needed for pain HYDROCODONE-ACETAMINOPHEN 63445764821 No Longer Active Alina Castaneda MD PhD Active DOXEPIN HCL 10 MG CAPS Take 1 tablet by mouth daily DOXEPIN HCL 32112992594 No Longer Active Salina Han [facility] Active NAVANE 10 MG CAPS 1/2 tablet twice a day THIOTHIXENE No Longer Active Salina Han [facility] Active CYCLOBENZAPRINE HCL 10 MG TABS 1/2 tablet by mouth every 8 hours as needed for muscle spasms CYCLOBENZAPRINE HCL 50969132198 No Longer Active Alina Castaneda MD PhD Active BACTROBAN 2 % CREAM apply to ear and nose twice daily MUPIROCIN CALCIUM 46012695733 No Longer Active Alina Castaneda MD PhD Active HYDROCODONE-ACETAMINOPHEN 5-325 MG TABS take one tablet by mouth every four hours as needed for pain HYDROCODONE-ACETAMINOPHEN 83741178183 No Longer Active Alina Castaneda MD PhD Active ZYPREXA 5 MG TABS take one tablet by mouth every evening OLANZAPINE 26733967402 No Longer Active Alina Castaneda MD PhD Active ALBUTEROL SULFATE 0.083 % NEBU SOLN one vial per nebulizer TID and PRN cough/ soa ALBUTEROL SULFATE 57679411477 No Longer Active Alina Castaneda MD PhD Active GUAIFENESIN 600 MG [id number] 1 tablet by mouth twice daily if needed for cough GUAIFENESIN 46505489615 No Longer Active Marvel MARROQUIN Active AZITHROMYCIN 500 MG SOLR 1 po q day AZITHROMYCIN 41011294967 No Longer Active Alina Castaneda MD PhD Active PROMETHAZINE-CODEINE 6.25-10 MG/5ML SYRP 1 tsp po q 6 hours prn cough PROMETHAZINE-CODEINE 08583493789 No Longer Active Alina Castaneda MD PhD Active CEFDINIR 300 MG CAPS by mouth twice a day CEFDINIR 99357374430 No Longer Active Alina Castaneda MD PhD Active METFORMIN HCL 500 MG [id number]-XCA Take 3 tablets by mouth everyday METFORMIN HCL 31139776427 No Longer Active Alina Castaneda MD PhD Active LEVEMIR 100 UNIT/ML SOLN 90 units SQ qHS INSULIN DETEMIR 20082156408 No Longer Active Marvel MARROQUIN Active TOPROL XL 100 MG [id number]-PGY 1 @ HS METOPROLOL SUCCINATE 73463723399 No Longer Active Marvel MARROQUIN Active ALLOPURINOL 300 MG TABS Take one by mouth daily ALLOPURINOL 91068256542 Active Mima Yoeloinaum MANAGEMENT RETAIL INTERN Active ZYPREXA 10 MG TABS Take one by mouth daily OLANZAPINE 82847432665 No Longer Active Alina Castaneda MD PhD Active NOVOLOG 100 UNIT/ML SOLN 40 units with every meal INSULIN ASPART 04910015358 No Longer Active Alina Castaneda MD PhD Active VERAPAMIL HCL CR 120 MG TAB CR 1 qPM VERAPAMIL HCL 32170145711 No Longer Active Salina Han RMA Active ZYPREXA 15 MG TABS Take 1 tablet by mouth daily OLANZAPINE 03084403178 No Longer Active Marvel MENDOZAP Active ALBUTEROL SULFATE (2.5 MG/3ML) 0.083% NEBU 1 neb tid and prn cough ALBUTEROL SULFATE 43215241197 No Longer Active Alina Castaneda MD PhD Active LANTUS 100 UNIT/ML SOLN 60 units sq q hs INSULIN GLARGINE 38099021224 No Longer Active CRYSTAL Suarez Active ALBUTEROL SULFATE (2.5 MG/3ML) 0.083% NEBU 1 neb tid and prn cough ALBUTEROL SULFATE (2.5 MG/3ML) 0.083% NEBU 702312 ALBUTEROL SULFATE Inactive ZYPREXA 15 MG TABS Take 1 tablet by mouth daily ZYPREXA 15 MG TABS 203762 OLANZAPINE Inactive VERAPAMIL HCL CR 120 MG TAB CR 1 qPM VERAPAMIL HCL CR 120 MG TAB CR VERAPAMIL HCL Inactive ZYPREXA 10 MG TABS Take one by mouth daily ZYPREXA 10 MG TABS 665515 OLANZAPINE Inactive TOPROL XL 100 MG [id number] 1 @ HS TOPROL XL 100 MG [id number] METOPROLOL SUCCINATE Inactive LEVEMIR 100 UNIT/ML SOLN 90 units SQ qHS LEVEMIR 100 UNIT/ML SOLN INSULIN DETEMIR Inactive PROMETHAZINE-CODEINE 6.25-10 MG/5ML SYRP 1 tsp po q 6 hours prn cough PROMETHAZINE-CODEINE 6.25-10 MG/5ML SYRP 366186 PROMETHAZINE- CODEINE Inactive GUAIFENESIN 600 MG [id number] 1 tablet by mouth twice daily if needed for cough GUAIFENESIN 600 MG RA02R-HMV GUAIFENESIN Inactive ALBUTEROL SULFATE 0.083 % NEBU SOLN one vial per nebulizer TID and PRN cough/ soa ALBUTEROL SULFATE 0.083 % NEBU SOLN 722095 ALBUTEROL SULFATE Inactive ZYPREXA 5 MG TABS take one tablet by mouth every evening ZYPREXA 5 MG TABS 440989 OLANZAPINE Inactive HYDROCODONE-ACETAMINOPHEN 5-325 MG TABS take one tablet by mouth every four hours as needed for pain HYDROCODONE-ACETAMINOPHEN 5-325 MG TABS 262049 HYDROCODONE-ACETAMINOPHEN Inactive BACTROBAN 2 % CREAM apply to ear and nose twice daily BACTROBAN 2 % CREAM 833511 MUPIROCIN CALCIUM Inactive CYCLOBENZAPRINE HCL 10 MG TABS 1/2 tablet by mouth every 8 hours as needed for muscle spasms CYCLOBENZAPRINE HCL 10 MG TABS 402477 CYCLOBENZAPRINE HCL Inactive NAVANE 10 MG CAPS 1/2 tablet twice a day NAVANE 10 MG CAPS THIOTHIXENE Inactive DOXEPIN HCL 10 MG CAPS Take 1 tablet by mouth daily DOXEPIN HCL 10 MG CAPS 4656212 DOXEPIN HCL Inactive HYDROCODONE-ACETAMINOPHEN 7.5-325 MG TABS 1 four times a day as needed for pain HYDROCODONE-ACETAMINOPHEN 7.5-325 MG TABS 399806 HYDROCODONE-ACETAMINOPHEN Inactive NIACIN CR 500 MG CR-TABS 2 qHS NIACIN CR 500 MG CR- TABS NIACIN Inactive ORPHENADRINE CITRATE ER 100 MG [id number] 1 every 12 hr. as needed ORPHENADRINE CITRATE ER 100 MG [id number] ORPHENADRINE CITRATE Inactive ACETAMINOPHEN 500 MG TABS 2 Q 6 hr. PRN ACETAMINOPHEN 500 MG TABS 907890 ACETAMINOPHEN Inactive SAPHRIS 5 MG SUBL by mouth twice a day SAPHRIS 5 MG SUBL ASENAPINE MALEATE Inactive NIACIN ER 500 MG CR-TABS 4 qHS (for triglycerides) NIACIN ER 500 MG CR-TABS NIACIN Inactive IBUPROFEN 200 MG TABS 1 Q 6 hr. PRN IBUPROFEN 200 MG TABS 465399 IBUPROFEN Inactive FLUTICASONE PROPIONATE 50 MCG/ACT SUSP 2 sprays each nostril qDay x 30 days FLUTICASONE PROPIONATE 50 MCG/ACT SUSP 9186292 FLUTICASONE PROPIONATE Inactive EQL TRUETEST TEST STRP Test blood sugar TID EQL TRUETEST TEST STRP GLUCOSE BLOOD Inactive TERESE CONTOUR TEST STRP monitor blood sugars 3x/day TERESE CONTOUR TEST STRP GLUCOSE BLOOD Inactive DETROL LA 4 MG [id number] Take 1 tablet by mouth daily DETROL LA 4 MG [id number]-ADW TOLTERODINE TARTRATE Inactive ZYPREXA 7.5 MG TABS 1 at HS ZYPREXA 7.5 MG TABS 249620 OLANZAPINE Inactive THIOTHIXENE 5 MG CAPS by mouth twice a day THIOTHIXENE 5 MG CAPS 728325 THIOTHIXENE Inactive UROXATRAL 10 MG [id number] Take 1 tablet by mouth daily UROXATRAL 10 MG [id number] ALFUZOSIN HCL Inactive ACYCLOVIR 400 MG ORAL TABS 1 pill three times daily x 5 days, for cold sore outbreak ACYCLOVIR 400 MG ORAL TABS 606908 ACYCLOVIR Inactive TRUETEST TEST STRP check sugars 4x/day TRUETEST TEST STRP GLUCOSE BLOOD Inactive HUMALOG 100 UNIT/ML SOLN Take 20 units with breakfast, 10u with lunch and suppetr. HUMALOG 100 UNIT/ML SOLN INSULIN LISPRO ( HUMAN) Inactive CYCLOBENZAPRINE HCL 10 MG TABS 1 tablet by mouth three times daily, scheduled CYCLOBENZAPRINE HCL 10 MG TABS 295707 CYCLOBENZAPRINE HCL Inactive ACCU-CHEK ROSA INVITR STRP use strips with device to check blood sugars 3 times daily ACCU-CHEK ROSA INVITR STRP GLUCOSE BLOOD Inactive ACCU-CHEK ROSA UZMA Use device to check blood sugars ACCU-CHEK ROSA UZMA BLOOD GLUCOSE MONITORING SUPPL Inactive FLUVOXAMINE MALEATE 100 MG ORAL TABS Take 1/2 tab at noon FLUVOXAMINE MALEATE 100 MG ORAL TABS 102140 FLUVOXAMINE MALEATE Inactive FLUVOXAMINE MALEATE 100 MG TABS Take one (1) tablet by mouth am, 1/2 at noon FLUVOXAMINE MALEATE 100 MG TABS 853123 FLUVOXAMINE MALEATE Inactive BACTROBAN 2 % CREAM Apply to affected area BID for up to 10 days BACTROBAN 2 % CREAM 546297 MUPIROCIN CALCIUM Inactive NOVOFINE 32G X 6 MM MISC use one four times per day NOVOFINE 32G X 6 MM MISC INSULIN PEN NEEDLE Inactive TRAZODONE HCL 100 MG ORAL TABS 1 tab by mouth for sleep TRAZODONE HCL 100 MG ORAL TABS 562154 TRAZODONE HCL Inactive LOVAZA 1 GM CAPS 4 daily (for triglycerides) LOVAZA 1 GM CAPS 267878 YKHOF-9-HXIC ETHYL ESTERS Inactive METFORMIN HCL ER 500 MG [id number] Take three tablets by mouth everyday METFORMIN HCL ER 500 MG [id number] METFORMIN HCL Inactive METOPROLOL SUCCINATE 100 MG [id number]-TNY 1 by mouth daily for blood pressure METOPROLOL SUCCINATE 100 MG [id number]-UKQ METOPROLOL SUCCINATE Inactive AMITIZA 24 MCG ORAL CAPS Take one capsule BID for constipation. AMITIZA 24 MCG ORAL CAPS LUBIPROSTONE Inactive TOLTERODINE TARTRATE 2 MG TABS 1 pill twice daily, for bladder TOLTERODINE TARTRATE 2 MG TABS 365430 TOLTERODINE TARTRATE Inactive COLACE 100 MG CAPS 1 pill by mouth twice daily, for constipation COLACE 100 MG CAPS 9770512 DOCUSATE SODIUM Inactive LOMOTIL 2.5-0.025 MG ORAL TABS take 1-2 tabs PO after each stool, no more than 8 in 24 hours LOMOTIL 2.5-0.025 MG ORAL TABS 8601279 DIPHENOXYLATE-ATROPINE Inactive ZOFRAN 4 MG TABS 1 po q4hr PRN Nausea ZOFRAN 4 MG TABS 490249 ONDANSETRON HCL Inactive HYDROCODONE-ACETAMINOPHEN 5-325 MG TABS 2 tabs by mouth three times daily for pain HYDROCODONE-ACETAMINOPHEN 5-325 MG TABS 432133 HYDROCODONE-ACETAMINOPHEN Inactive ZOLPIDEM TARTRATE 10 MG TABS take at bedtime ZOLPIDEM TARTRATE 10 MG TABS 946027 ZOLPIDEM TARTRATE Inactive LISINOPRIL 20 MG TABS 1 BID LISINOPRIL 20 MG TABS 894217 LISINOPRIL Inactive TRAVATAN Z 0.004 % SOLN 1 gtt each eye daily TRAVATAN Z 0.004 % SOLN TRAVOPROST Inactive LATUDA 60 MG ORAL TABS Take one by mouth daily LATUDA 60 MG ORAL TABS LURASIDONE HCL Inactive FLUVOXAMINE MALEATE 50 MG ORAL TABS 1 tab by mouth daily FLUVOXAMINE MALEATE 50 MG ORAL TABS 110890 FLUVOXAMINE MALEATE Inactive CEFDINIR 300 MG CAPS by mouth twice a day CEFDINIR 300 MG CAPS 494691 CEFDINIR Inactive AZITHROMYCIN 500 MG SOLR 1 po q day AZITHROMYCIN 500 MG SOLR 03085330395 AZITHROMYCIN Inactive AMOXICILLIN 500 MG CAPS 2 po BID x 10 days AMOXICILLIN 500 MG CAPS 532907 AMOXICILLIN Inactive PENICILLIN V POTASSIUM 500 MG TABS 1 pill by mouth three times daily PENICILLIN V POTASSIUM 500 MG TABS 084933 PENICILLIN V POTASSIUM Inactive KEFLEX 500 MG CAP 1 po BID x 7 days KEFLEX 500 MG CAP 927006 CEPHALEXIN Inactive Immunizations Vaccine Administration Date Value [...] Fluvirin, Fluarix, Agriflu(>=18 yo)) Fluzone (>3 yrs.) [[id number]] Influenza, seasonal, injectable pneumococcal immunization administered Pneumovax [...] HGBA1C - Chemistry sodium, serum 140 mmol/L [phone]/11/09 potassium, serum 4.0 mmol/L 3.5-5.2 chloride, serum [...] Acid - Chemistry cholesterol, serum 187 mg/dL [phone]/06/14 triglyceride, serum, fasting 246 mg/dL 30-200 HDL [...] negative Encounters Code Encounter Date Provider Facility CPT-54683 Level 3 Est. Patient 09:12:14 BET TAKER Mima Jeffliudmila [facility] CPT-10652 Level 3 Est. Patient 16:52:51 CDT Vanessa Hickey MD [facility]-97865 Level 3 Est. Patient 17:40:16 CDT Mima Erazo [facility]-02998 Level 3 Est. Patient 14:34:52 CDT Vanessa Hickey MD [facility]-58011 Level 3 Est. Patient 16:27:51 CDT Mima Erazo [facility]-31221 Level 3 Est. Patient 14:39:00 BET TAKER Vanessa Hickey MD [facility]-76017 Level 2 Est. Patient 18:43:34 CDT Mima Erazo [facility] CPT-66688 Level 3 Est. Patient 16:22:09 CDT Cherelle Avila [facility] CPT-52794 Level 4 Est. Patient 17:55:14 CDT Mima Erazo [facility] CPT-70687 Level 2 Est. Patient 17:13:21 CDT Alina Castaneda MD [facility] CPT-15914 Level 3 Est. Patient 14:46:15 CDT Vanessa Hickey MD [facility]-21445 Level 3 Est. Patient 09:34:56 CDT Alina Castaneda MD [facility]-78359 Level 3 Est. Patient 21:40:19 CDT Mima Jeffeloinajerrell [facility] CPT-00784 Level 3 Est. Patient 09:26:40 CDT Marvel Charles [facility]-80733 Level 3 Est. Patient 12:36:43 CDT Vanessa Hickey MD [facility]-43736 Level 3 Est. Patient 12:57:49 CDT Vanessa Hickey MD [facility]-60322 Level 3 Est. Patient 00:28:25 CDT Alina Castaneda MD [facility]28614 Level 2 Est. Patient 12:52:14 CDT Alina Castaneda MD [facility]-88032 Level 3 Est. Patient 11:51:18 BET TAKER Alina Castaneda MD [facility]-16555 Level 3 Est. Patient 10:09:22 BET TAKER Alina Castaneda MD [facility]74737 Level 3 Est. Patient 14:36:26 BET TAKER Marvel Charles [facility]-55182 Level 3 Est. Patient 13:34:47 BET TAKER Alina Castaneda MD [facility]-27362 Level 3 Est. Patient 19:52:08 BET TAKER Alina Castaneda MD [facility]-89898 Level 3 Est. Patient 10:01:51 BET TAKER Marvel Charles [facility]-04009 Level 3 Est. Patient 21:54:06 CDT Vanessa Hickey MD [facility]-16213 Level 3 Est. Patient 08:54:46 CDT Alina Castaneda MD [facility]-95739 Level 3 Est. Patient 09:32:11 CDT Marvel Charles [facility]-66032 Level 3 Est. Patient 12:02:49 CDT Alina Castaneda MD [facility]84295 Level 3 Est. Patient 19:17:33 CDT Alina Castaneda MD [facility]13471 Level 3 Est. Patient 13:19:10 CDT Marvel Charles [facility]-19796 Level 3 Est. Patient 08:20:05 CDT Alina Castaneda MD [facility]-40021 Level 3 Est. Patient 15:17:18 CDT Alina Castaneda MD [facility]-40519 Level 3 Est. Patient 14:25:36 BET TAKER Marvel Charles [facility] [facility]-40277 Level 3 Est. Patient 10:09:15 BET TAKER Marvel Charles [facility]-03088 Level 3 Est. Patient 21:28:43 CDT Alina Castaneda MD [facility]-87235 Level 3 Est. Patient 15:20:11 CDT Marvel Charles [facility]-93026 Level 4 Est. Patient 19:08:12 CDT Alina Castaneda MD [facility]-15816 Level 3 Est. Patient 15:06:39 CDT Marvel Charles [facility]-97740 Level 4 Est. Patient 17:48:15 CDT Alina Castaneda MD [facility]-80824 Level 3 Est. Patient 14:53:49 CDT Alina Castaneda MD [facility]-69755 Level 3 Est. Patient 09:35:16 CDT Alina Castandea MD [facility]-59649 Level 3 Est. Patient 12:23:22 CDT Alina Castaneda MD [facility]-86257 Level 3 Est. Patient 16:19:15 CDT Alina Castaneda MD [facility]-87837 Level 3 Est. Patient 21:39:56 BET TAKER Alina Castaneda MD [facility]-58848 Level 4 Est. Patient 14:12:56 BET TAKER Alina Castaneda MD [facility]-16062 Level 2 Est. Patient 15:34:57 BET TAKER Alina Castaneda MD [facility]-52189 Level 3 Est. Patient 12:17:04 BET TAKER Alina Castaneda MD [facility]66093 Level 3 Est. Patient 09:18:18 BET TAKER Marvel Charles [facility]-12848 Level 2 Est. Patient 21:50:24 CDT Alina Castaneda MD [facility]-00662 Level 3 Est. Patient 09:17:28 CDT Marvel Charles [facility]-35082 Level 4 Est. Patient 18:54:02 CDT Alina Castaneda MD [facility]-37768 Level 3 Est. Patient 10:47:10 CDT Alina Castaneda MD [facility]-16026 Level 3 Est. Patient 09:22:20 CDT Marvel Charles [facility]-48288 Level 3 Est. Patient 16:39:43 CDT Marvel Charles [facility]-18618 Level 3 Est. Patient 16:05:16 CDT Alina Castaneda MD [facility]-82420 Level 3 Est. Patient 00:29:15 CDT Alina Castaneda MD [facility]28774 Level 3 Est. Patient 10:49:22 BET TAKER Marvel Charles [facility]-24442 Level 3 Est. Patient 21:30:19 BET TAKER Alina Castaneda MD [facility] CPT-52811 Level 4 Est. Patient 17:04:11 BET TAKER Marvel Charles [facility] CPT-60998 Level 3 Est. Patient 15:34:11 BET TAKER [place] [facility] CPT-99389 Level 2 Est. Patient 12:51:58 BET TAKER Alina Castaneda MD PhD [facility] CPT-97121 Level 3 Est. Patient 13:20:01 BET TAKER Alina Castaneda MD [facility] CPT-66863 Level 3 Est. Patient 09:23:35 CDT Alina Castaneda MD PhD [facility] Procedures Code Procedure Name Date Entry Date Standard Description CPT-50555 HGBA1C - LAB USE ONLY 09:30:27 BET TAKER CPT-52007 BMP - LAB USE ONLY 09:30:27 BET TAKER CPT-47651 Venipuncture Draw Fee 09:30:26 BET TAKER CPT-TCMM Transitional Care Mgmt-Moderate 10:25:31 CDT CPT-72615 Bladder Scan 14:34:53 CDT CPT-30364 Bladder Scan 14:39:01 BET TAKER CPT-TCMM Transitional Care Mgmt-Moderate 10:30:19 BET TAKER CPT-82248 Bladder Scan 12:36:44 CDT CPT-12503 Bladder Scan 21:54:06 CDT CPT-G0008 Administration of Influenza Virus Vaccine 13:05:26 CDT CPT-72764 Fluzone Quadrivalent Intramuscular Suspension 0.5 ML 13: 05:26 CDT CPT-70284 Administration single or combination vaccine inc oral 11 :49:51 CDT CPT-05100 Pneumovax 11:49:51 CDT CPT-03207 Ribs unilateral 2V 12:37:22 BET TAKER CPT-19263 Chest 2V Frontal and Lat 17:15:26 CDT CPT-20901 Abx/Therapy Injection 18:54:02 CDT CPT-J0696 Rocephin 1000 mg (Ceftriaxone) 16:00:32 CDT CPT-02741 Chest 2V Frontal and Lat 15:26:45 CDT CPT-58113 Chest 2V Frontal and Lat 10:23:27 CDT CPT-25531 Venipuncture Draw Fee 10:11:00 CDT CPT-95911 Administration single or combination vaccine inc oral 11 :56:38 CDT CPT-34649 Influenza split virus > age 3 11:56:38 CDT CPT-90084 Venipuncture Draw Fee 08:49:54 BET TAKER CPT-37545 EKG Trac and Interp 17:54:19 BET TAKER
--- OUTSIDE RECORDS SUMMARY | 2018-07-02 19:23 | XMS REPORT | Clinical Summary ---
Author Author Admin, TERELL Organization [facility] Address Unknown Phone Unavailable Allergies, [...] mouth three times daily for pain HYDROCODONE-ACETAMINOPHEN 93707919285 Active Alina Castaneda MD PhD Active HUMALOG KWIKPEN 100 UNIT/ML SC SOPN 20 units with breakfast, 10 units with lunch, 10 units with dinner, for diabetes INSULIN LISPRO (HUMAN ) 85867470439 Active Alina Castaneda MD PhD Active LEVEMIR FLEXTOUCH 100 UNIT/ML SC SOPN 70 units SQ each evening, for diabetes INSULIN DETEMIR 64316853138 Active Alina Castaneda MD PhD Active LATUDA 120 MG ORAL TABS 1 pill by mouth nightly LURASIDONE HCL 09775843618 Active Alina Castaneda MD PhD Active COLACE 100 MG CAPS 1 pill by mouth twice daily, for constipation DOCUSATE SODIUM 19750809717 Active Alina Castaneda MD PhD Active TRUETEST TEST STRP check blood sugars 3x/day GLUCOSE BLOOD 51131444278 Active Maljohn Ziglari MIXER OPERATOR VACUUM PAN SALT Active ACCU-CHEK ROSA UZMA Use device to check blood sugars BLOOD GLUCOSE MONITORING SUPPL 56072728185 No Longer Active [employer] Ziglari MIXER OPERATOR VACUUM PAN SALT Active ACCU-CHEK ROSA INVITR STRP use strips with device to check blood sugars 3 times daily GLUCOSE BLOOD 06413724546 No Longer Active [employer] 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 MIXER OPERATOR VACUUM PAN SALT Active VERAPAMIL HCL ER 180 MG ORAL CR-TABS 1 pill by mouth twice daily, for migraine prevention VERAPAMIL HCL 90686578188 Active Alina Castaneda MD PhD Active CYCLOBENZAPRINE HCL 10 MG TABS 1 tablet by mouth three times daily, scheduled CYCLOBENZAPRINE HCL 28173588538 No Longer Active Alina Castaneda MD PhD Active HUMALOG 100 UNIT/ML SOLN Take 20 units with breakfast, 10u with lunch and suppetr. INSULIN LISPRO (HUMAN) 95771423874 No Longer Active Alina Castaneda MD PhD Active TRUETEST TEST STRP check sugars 4x/day GLUCOSE BLOOD 51114670874 No Longer Active Alina Castaneda MD PhD Active MORPHINE SULFATE 30 MG TABS 1 pill by mouth twice daily, for pain MORPHINE SULFATE 98500923432 Active Alina Castaneda MD PhD Active ACYCLOVIR 400 MG ORAL TABS 1 pill three times daily x 5 days, for cold sore outbreak ACYCLOVIR 63467770275 No Longer Active Alina Castaneda MD PhD Active PENICILLIN V POTASSIUM 500 MG TABS 1 pill by mouth three times daily PENICILLIN V POTASSIUM 11193523645 No Longer Active Alina Castaneda MD PhD Active UROXATRAL 10 MG [id number] Take 1 tablet by mouth daily ALFUZOSIN HCL 56548867607 No Longer Active Alina Castaneda MD PhD Active THIOTHIXENE 5 MG CAPS by mouth twice a day THIOTHIXENE 11208482400 No Longer Active Alina Castaneda MD PhD Active ZYPREXA 7.5 MG TABS 1 at HS OLANZAPINE 87865295056 No Longer Active Alina Castaneda MD PhD Active BD INSULIN SYRINGE 28G X 1/2" 1 ML MISC 1 four times per day INSULIN SYRINGE-NEEDLE U-[address] [facility] Active TOLTERODINE TARTRATE 2 MG TABS 1 pill twice daily, for bladder TOLTERODINE TARTRATE 44463057325 Active Alina Castaneda MD PhD Active DETROL LA 4 MG [id number] Take 1 tablet by mouth daily TOLTERODINE TARTRATE 63547799452 No Longer Active Alina Castaneda MD PhD Active TERESE CONTOUR TEST STRP monitor blood sugars 3x/day GLUCOSE BLOOD 02060802733 No Longer Active Alina Castaneda MD PhD Active EQL TRUETEST TEST STRP Test blood sugar TID GLUCOSE BLOOD 26290685742 No Longer Active Alina Castaneda MD PhD Active FLUTICASONE PROPIONATE 50 MCG/ACT SUSP 2 sprays each nostril qDay x 30 days FLUTICASONE PROPIONATE 58797130444 No Longer Active Alina Castaneda MD PhD Active IBUPROFEN 200 MG TABS 1 Q 6 hr. PRN IBUPROFEN 24573366713 No Longer Active Alina Castaneda MD PhD Active NIACIN ER 500 MG CR-TABS 4 qHS (for triglycerides) NIACIN 48134601242 No Longer Active Alina Castaneda MD PhD Active ALFUZOSIN HCL ER 10 MG [id number] 1 tablet daily ALFUZOSIN HCL 34792776415 Active Vanessa Hickey MD Active CLONAZEPAM 1 MG TABS 1 pill by mouth three times daily CLONAZEPAM 58062287621 Active Alina Castaneda MD PhD Active LOVAZA 1 GM CAPS 4 daily (for triglycerides) [id number] ETHYL ESTERS 81833683531 Active Alina Castaneda MD PhD Active SAPHRIS 5 MG SUBL by mouth twice a day ASENAPINE MALEATE 98944707874 No Longer Active Marvel MARROQUIN Active ACETAMINOPHEN 500 MG TABS 2 Q 6 hr. PRN ACETAMINOPHEN 82018071084 No Longer Active Marvel MARROQUIN Active ORPHENADRINE CITRATE ER 100 MG [id number] 1 every 12 hr. as needed ORPHENADRINE CITRATE 56078687837 No Longer Active Alina Castaneda MD PhD Active NIACIN CR 500 MG CR-TABS 2 qHS NIACIN 35896801912 No Longer Active Alina Castaneda MD PhD Active AMOXICILLIN 500 MG CAPS 2 po BID x 10 days AMOXICILLIN 29701828660 No Longer Active Alina Castaneda MD PhD Active HYDROCODONE-ACETAMINOPHEN 7.5-325 MG TABS 1 four times a day as needed for pain HYDROCODONE-ACETAMINOPHEN 83001747761 No Longer Active Alina Castaneda MD PhD Active METFORMIN HCL ER 500 MG [id number] Take three tablets by mouth everyday METFORMIN HCL 14631263596 Active Marvel Ziglari MIXER OPERATOR VACUUM PAN SALT Active DOXEPIN HCL 10 MG CAPS Take 1 tablet by mouth daily DOXEPIN HCL 22975782414 No Longer Active Salina [facility] Active NAVANE 10 MG CAPS 1/2 tablet twice a day THIOTHIXENE No Longer Active Salina Han [facility] Active CYCLOBENZAPRINE HCL 10 MG TABS 1/2 tablet by mouth every 8 hours as needed for muscle spasms CYCLOBENZAPRINE HCL 87042137342 No Longer Active Alina Castaneda MD PhD Active BACTROBAN 2 % CREAM apply to ear and nose twice daily MUPIROCIN CALCIUM 27802945306 No Longer Active Alina Castaneda MD PhD Active HYDROCODONE-ACETAMINOPHEN 5-325 MG TABS take one tablet by mouth every four hours as needed for pain HYDROCODONE-ACETAMINOPHEN 12957210250 No Longer Active Alina Castaneda MD PhD Active ZOLPIDEM TARTRATE 10 MG TABS take at bedtime ZOLPIDEM TARTRATE 30526105396 Active Alina Castaneda MD PhD Active ZYPREXA 5 MG TABS take one tablet by mouth every evening OLANZAPINE 04701779041 No Longer Active Alina Castaneda MD PhD Active ALBUTEROL SULFATE 0.083 % NEBU SOLN one vial per nebulizer TID and PRN cough/ soa ALBUTEROL SULFATE 03782800149 No Longer Active Alina Castaneda MD PhD Active GUAIFENESIN 600 MG [id number] 1 tablet by mouth twice daily if needed for cough GUAIFENESIN 99505662064 No Longer Active Marvel MENDOZAP Active AZITHROMYCIN 500 MG SOLR 1 po q day AZITHROMYCIN 98625054393 No Longer Active Alina Castaneda MD PhD Active METOPROLOL SUCCINATE 100 MG [id number] 1 by mouth daily for blood pressure METOPROLOL SUCCINATE 42766177324 Active Alina Castaneda MD PhD Active PROMETHAZINE-CODEINE 6.25-10 MG/5ML SYRP 1 tsp po q 6 hours prn cough PROMETHAZINE-CODEINE 56243057894 No Longer Active Alina Castaneda MD PhD Active CEFDINIR 300 MG CAPS by mouth twice a day CEFDINIR 64631631951 No Longer Active Alina Castaneda MD PhD Active METFORMIN HCL 500 MG [id number]-[id number] Take 3 tablets by mouth everyday METFORMIN HCL 77409343725 No Longer Active Alina Castaneda MD PhD Active LEVEMIR 100 UNIT/ML SOLN 90 units SQ qHS INSULIN DETEMIR 69802944903 No Longer Active Marvel MARROQUIN Active TOPROL XL 100 MG [id number] 1 @ HS METOPROLOL SUCCINATE 78135829873 No Longer Active Marvel MARROQUIN Active ALLOPURINOL 300 MG TABS Take one by mouth daily ALLOPURINOL 12574000535 Active Alina Castaneda MD PhD Active ZYPREXA 10 MG TABS Take one by mouth daily OLANZAPINE 29173556519 No Longer Active Alina Castaneda MD PhD Active NOVOLOG 100 UNIT/ML SOLN 40 units with every meal INSULIN ASPART 67042351420 No Longer Active Alina Castaneda MD PhD Active VERAPAMIL HCL CR 120 MG TAB CR 1 qPM VERAPAMIL HCL 01625967884 No Longer Active Salina ROJAS Active ZYPREXA 15 MG TABS Take 1 tablet by mouth daily OLANZAPINE 18179967198 No Longer Active Marvel MARROQUIN Active LISINOPRIL 20 MG TABS 1 BID LISINOPRIL 70298075864 Active Alina Castaneda MD PhD Active ALBUTEROL SULFATE (2.5 MG/3ML) 0.083% NEBU 1 neb tid and prn cough ALBUTEROL SULFATE 50059402181 No Longer Active Alina Castaneda MD PhD Active FLUVOXAMINE MALEATE 100 MG TABS Take one (1) tablet by mouth am, 1/2 at noon, 1 pm FLUVOXAMINE MALEATE 78310186570 Active Alina Castaneda MD PhD Active TRAVATAN Z 0.004 % SOLN 1 gtt each eye daily TRAVOPROST 60668965019 Active Alina Andrea, RMA Active LANTUS 100 UNIT/ML SOLN 60 units sq q hs INSULIN GLARGINE 21865543529 No Longer Active Alina AndreaCRYSTAL Active ALBUTEROL SULFATE (2.5 MG/3ML) 0.083% NEBU 1 neb tid and prn cough ALBUTEROL SULFATE (2.5 MG/3ML) 0.083% NEBU 197558 ALBUTEROL SULFATE Inactive ZYPREXA 15 MG TABS Take 1 tablet by mouth daily ZYPREXA 15 MG TABS 184594 OLANZAPINE Inactive VERAPAMIL HCL CR 120 MG TAB CR 1 qPM VERAPAMIL HCL CR 120 MG TAB CR VERAPAMIL HCL Inactive ZYPREXA 10 MG TABS Take one by mouth daily ZYPREXA 10 MG TABS 623351 OLANZAPINE Inactive TOPROL XL 100 MG [id number] 1 @ HS TOPROL XL 100 MG [id number]-[id number] METOPROLOL SUCCINATE Inactive LEVEMIR 100 UNIT/ML SOLN 90 units SQ qHS LEVEMIR 100 UNIT/ML SOLN INSULIN DETEMIR Inactive PROMETHAZINE-CODEINE 6.25-10 MG/5ML SYRP 1 tsp po q 6 hours prn cough PROMETHAZINE-CODEINE 6.25-10 MG/5ML SYRP 856606 PROMETHAZINE- CODEINE Inactive GUAIFENESIN 600 MG [id number]-LBG 1 tablet by mouth twice daily if needed for cough GUAIFENESIN 600 MG [id number]-ZSL GUAIFENESIN Inactive ALBUTEROL SULFATE 0.083 % NEBU SOLN one vial per nebulizer TID and PRN cough/ soa ALBUTEROL SULFATE 0.083 % NEBU SOLN 402400 ALBUTEROL SULFATE Inactive ZYPREXA 5 MG TABS take one tablet by mouth every evening ZYPREXA 5 MG TABS 675332 OLANZAPINE Inactive HYDROCODONE-ACETAMINOPHEN 5-325 MG TABS take one tablet by mouth every four hours as needed for pain HYDROCODONE-ACETAMINOPHEN 5-325 MG TABS 624535 HYDROCODONE-ACETAMINOPHEN Inactive BACTROBAN 2 % CREAM apply to ear and nose twice daily BACTROBAN 2 % CREAM 521659 MUPIROCIN CALCIUM Inactive CYCLOBENZAPRINE HCL 10 MG TABS 1/2 tablet by mouth every 8 hours as needed for muscle spasms CYCLOBENZAPRINE HCL 10 MG TABS 643266 CYCLOBENZAPRINE HCL Inactive NAVANE 10 MG CAPS 1/2 tablet twice a day NAVANE 10 MG CAPS THIOTHIXENE Inactive DOXEPIN HCL 10 MG CAPS Take 1 tablet by mouth daily DOXEPIN HCL 10 MG CAPS 6218793 DOXEPIN HCL Inactive HYDROCODONE-ACETAMINOPHEN 7.5-325 MG TABS 1 four times a day as needed for pain HYDROCODONE-ACETAMINOPHEN 7.5-325 MG TABS 156559 HYDROCODONE-ACETAMINOPHEN Inactive NIACIN CR 500 MG CR-TABS 2 qHS NIACIN CR 500 MG CR- TABS NIACIN Inactive ORPHENADRINE CITRATE ER 100 MG [id number] 1 every 12 hr. as needed ORPHENADRINE CITRATE ER 100 MG [id number] ORPHENADRINE CITRATE Inactive ACETAMINOPHEN 500 MG TABS 2 Q 6 hr. PRN ACETAMINOPHEN 500 MG TABS 402867 ACETAMINOPHEN Inactive SAPHRIS 5 MG SUBL by mouth twice a day SAPHRIS 5 MG SUBL ASENAPINE MALEATE Inactive NIACIN ER 500 MG CR-TABS 4 qHS (for triglycerides) NIACIN ER 500 MG CR-TABS NIACIN Inactive IBUPROFEN 200 MG TABS 1 Q 6 hr. PRN IBUPROFEN 200 MG TABS 814247 IBUPROFEN Inactive FLUTICASONE PROPIONATE 50 MCG/ACT SUSP 2 sprays each nostril qDay x 30 days FLUTICASONE PROPIONATE 50 MCG/ACT SUSP 080272 FLUTICASONE PROPIONATE Inactive EQL TRUETEST TEST STRP Test blood sugar TID EQL TRUETEST TEST STRP GLUCOSE BLOOD Inactive TERESE CONTOUR TEST STRP monitor blood sugars 3x/day TERESE CONTOUR TEST STRP GLUCOSE BLOOD Inactive DETROL LA 4 MG [id number] Take 1 tablet by mouth daily DETROL LA 4 MG [id number]-XEZ TOLTERODINE TARTRATE Inactive ZYPREXA 7.5 MG TABS 1 at HS ZYPREXA 7.5 MG TABS 156437 OLANZAPINE Inactive THIOTHIXENE 5 MG CAPS by mouth twice a day THIOTHIXENE 5 MG CAPS 106488 THIOTHIXENE Inactive UROXATRAL 10 MG [id number]-COP Take 1 tablet by mouth daily UROXATRAL 10 MG [id number]-VDQ ALFUZOSIN HCL Inactive ACYCLOVIR 400 MG ORAL TABS 1 pill three times daily x 5 days, for cold sore outbreak ACYCLOVIR 400 MG ORAL TABS 820351 ACYCLOVIR Inactive TRUETEST TEST STRP check sugars 4x/day TRUETEST TEST STRP GLUCOSE BLOOD Inactive HUMALOG 100 UNIT/ML SOLN Take 20 units with breakfast, 10u with lunch and suppetr. HUMALOG 100 UNIT/ML SOLN INSULIN LISPRO ( HUMAN) Inactive CYCLOBENZAPRINE HCL 10 MG TABS 1 tablet by mouth three times daily, scheduled CYCLOBENZAPRINE HCL 10 MG TABS 804490 CYCLOBENZAPRINE HCL Inactive ACCU-CHEK ROSA INVITR STRP use strips with device to check blood sugars 3 times daily ACCU-CHEK ROSA INVITR STRP GLUCOSE BLOOD Inactive ACCU-CHEK ROSA UZMA Use device to check blood sugars ACCU-CHEK ROSA UZMA BLOOD GLUCOSE MONITORING SUPPL Inactive CEFDINIR 300 MG CAPS by mouth twice a day CEFDINIR 300 MG CAPS 896052 CEFDINIR Inactive AZITHROMYCIN 500 MG SOLR 1 po q day AZITHROMYCIN 500 MG SOLR 664162 AZITHROMYCIN Inactive AMOXICILLIN 500 MG CAPS 2 po BID x 10 days AMOXICILLIN 500 MG CAPS 761513 AMOXICILLIN Inactive PENICILLIN V POTASSIUM 500 MG TABS 1 pill by mouth three times daily PENICILLIN V POTASSIUM 500 MG TABS 405126 PENICILLIN V POTASSIUM Inactive Immunizations Vaccine Administration [...] Fluvirin, Fluarix, Agriflu(>=18 yo)) Fluzone (>3 yrs.) [[id number]] Influenza, seasonal, injectable pneumococcal immunization administered Pneumovax [...] HGBA1C - Chemistry sodium, serum 131 mmol/L 996-808 7815/12/30 potassium, serum 5.0 mmol/L 3.5-5.2 chloride, serum 95 mmol/L 98-107 carbon dioxide, venous blood 26.7 mmol/L 21.0-32.0 blood glucose 112 mg/dL 65-110 calcium, serum 9.2 mg/dL 8.5-10.1 urea nitrogen, blood 12 mg/dL 7-18 creatinine, serum 1.10 mg/dL 0.60-1.30 hemoglobin A1C, blood, as % of total hemoglobin 5.8 % 4.3-6.0 Lab Report: Basic Metabolic Panel, HGBA1C, MICROALBUMIN - Chemistry sodium, serum 137 mmol/L 357-212 5818/05/19 potassium, serum 5.2 mmol/L 3.5-5.2 chloride, serum [...] microalbumin, urine 10 0-19 Lab Report: Chlamydia/GC APTIMA/77418, HIV-1/2 Agn/Dominga/28246, RPR (DX) W ... - Chemistry hepatitis B surface antigen NON-REACTIVE NON-REACTIVE Lab Report: Chlamydia/GC APTIMA/12796, HIV-1/2 Agn/Dominga/19159, RPR (DX) W ... - Lab chlamydia DNA probe NOT DETECTED NOT DETECTED Lab Report: Chlamydia/GC APTIMA/39910, HIV-1/2 Agn/Dominga/10589, RPR (DX) W ... - Microbiology Neisseria gonorrhoeae DNA probe NOT DETECTED NOT DETECTED Lab Report: Chlamydia/GC APTIMA/00813, HIV-1/2 Agn/Dominga/33144, RPR (DX) W ... - Serology rapid plasma reagin antibody titer NON-REACTIVE NON-REACTIVE Lab Report: Comp. Metabolic Panel - Chemistry sodium, serum 127 mmol/L 154-567 0043/10/27 potassium, serum 4.1 mmol/L 3.5-5.2 chloride, serum [...] CBC - Chemistry cholesterol, serum 131 mg/dL 719-740 6453/06/03 triglyceride, serum, fasting 383 mg/dL 30-200 HDL [...] 4.7 mg/dL 2.6-7.2 cholesterol, serum 142 mg/dL 283-205 4211/06/26 triglyceride, serum, fasting 272 mg/dL 30-200 HDL [...] mg/dL Encounters Code Encounter Date Provider Facility CPT-00747 Level 3 Est. Patient 14:46:15 JEANNINE Hickey MD [facility]-44201 Level 3 Est. Patient 09:34:56 CDT Alina Castaneda MD [facility]-12602 Level 3 Est. Patient 21:40:19 CDT Mima Erazo ALBAN [facility]-55251 Level 3 Est. Patient 09:26:40 CDT Marvel Charles [facility]-09881 Level 3 Est. Patient 12:36:43 CDT Vanessa Hickey MD [facility]-45105 Level 3 Est. Patient 12:57:49 CDT Vanessa Hickey MD [facility]-87085 Level 3 Est. Patient 00:28:25 CDT Alina Castaneda MD [facility]49647 Level 2 Est. Patient 12:52:14 CDT Alina Castaneda MD [facility]79432 Level 3 Est. Patient 11:51:18 SPINNING LATHE OPERATOR Alina Castaneda MD [facility]-12793 Level 3 Est. Patient 10:09:22 SPINNING LATHE OPERATOR Alina Castaneda MD [facility]33984 Level 3 Est. Patient 14:36:26 SPINNING LATHE OPERATOR Marvel Charles [facility]-07232 Level 3 Est. Patient 13:34:47 SPINNING LATHE OPERATOR Alina Castaneda MD [facility]-64279 Level 3 Est. Patient 19:52:08 SPINNING LATHE OPERATOR Alina Castaneda MD [facility]-25306 Level 3 Est. Patient 10:01:51 SPINNING LATHE OPERATOR Marvel Charles [facility]26217 Level 3 Est. Patient 21:54:06 CDT Vanessa Hickey MD [facility]-77678 Level 3 Est. Patient 08:54:46 CDT Alina Castaneda MD [facility]-92581 Level 3 Est. Patient 09:32:11 CDT Marvel Gurdeepajayestela [facility]-78915 Level 3 Est. Patient 12:02:49 CDT Alina Castaneda MD [facility]-14747 Level 3 Est. Patient 19:17:33 CDT Alina Castaneda MD [facility]47835 Level 3 Est. Patient 13:19:10 CDT Marvel Gurdeepajayestela [facility]-42068 Level 3 Est. Patient 08:20:05 CDT Alina Castaneda MD [facility]-12851 Level 3 Est. Patient 15:17:18 CDT Alina Castaneda MD [facility]-97102 Level 3 Est. Patient 14:25:36 SPINNING LATHE OPERATOR [facility] Patient 10:09:15 SPINNING LATHE OPERATOR Marvel Charles [facility]-50728 Level 3 Est. Patient 21:28:43 CDT Alina Castaneda MD [facility]-22219 Level 3 Est. Patient 15:20:11 CDT Marvel Araceli [facility]-63995 Level 4 Est. Patient 19:08:12 CDT Alina Castaneda MD [facility]-31804 Level 3 Est. Patient 15:06:39 CDT Marvel Charles [facility]-20744 Level 4 Est. Patient 17:48:15 CDT Alina Castaneda MD [facility]-09265 Level 3 Est. Patient 14:53:49 CDT Alina Castaneda MD [facility]-78757 Level 3 Est. Patient 09:35:16 CDT Alina Castaneda MD [facility]-95402 Level 3 Est. Patient 12:23:22 CDT Alina Castaneda MD [facility]13451 Level 3 Est. Patient 16:19:15 CDT Alina Castaneda MD [facility]-79670 Level 3 Est. Patient 21:39:56 SPINNING LATHE OPERATOR Alina Castaneda MD [facility]-66458 Level 4 Est. Patient 14:12:56 SPINNING LATHE OPERATOR Alina Castaneda MD [facility]-28461 Level 2 Est. Patient 15:34:57 SPINNING LATHE OPERATOR Alina Castaneda MD [facility]-92889 Level 3 Est. Patient 12:17:04 SPINNING LATHE OPERATOR Alina Castaneda MD [facility]-93949 Level 3 Est. Patient 09:18:18 SPINNING LATHE OPERATOR Marvel Charles [facility]-78218 Level 2 Est. Patient 21:50:24 CDT Alina Castaneda MD [facility]-60064 Level 3 Est. Patient 09:17:28 CDT Marvel Charles [facility]-40267 Level 4 Est. Patient 18:54:02 CDT Alina Castaneda MD [facility]49589 Level 3 Est. Patient 10:47:10 CDT Alina Castaneda MD [facility]80289 Level 3 Est. Patient 09:22:20 CDT Marvel Charles [facility]-77368 Level 3 Est. Patient 16:39:43 [facility]T [facility] Level 3 Est. Patient 16:05:16 CDT Alina Castaneda MD [facility] CPT-29565 Level 3 Est. Patient 00:29:15 CDT Alina Castaneda MD [facility] CPT-94601 Level 3 Est. Patient 10:49:22 SPINNING LATHE OPERATOR Marvel Gurdeepajayestela [facility] CPT-70091 Level 3 Est. Patient 21:30:19 SPINNING LATHE OPERATOR Alina Castaneda MD [facility] CPT-43882 Level 4 Est. Patient 17:04:11 SPINNING LATHE OPERATOR [place] Gurdeepajayestela [facility] CPT-05102 Level 3 Est. Patient 15:34:11 SPINNING LATHE OPERATOR [facility] Level 2 Est. Patient 12:51:58 SPINNING LATHE OPERATOR Alina Castaneda MD [facility] CPT-63448 Level 3 Est. Patient 13:20:01 SPINNING LATHE OPERATOR Alina Castaneda MD [facility] CPT-90374 Level 3 Est. Patient 09:23:35 CDT Alina Castaneda MD [facility] Procedures Code Procedure Name Date Entry Date Standard Description CPT-45891 Bladder Scan 12:36:44 CDT CPT-46332 Bladder Scan 21:54:06 CDT CPT-G0008 Administration of Influenza Virus Vaccine 13:05:26 CDT CPT-83379 Fluzone Quadrivalent Intramuscular Suspension 0.5 ML 13: 05:26 CDT CPT-03909 Administration single or combination vaccine inc oral 11 :49:51 CDT CPT-82912 Pneumovax 11:49:51 CDT CPT-76669 Ribs unilateral 2V 12:37:22 SPINNING LATHE OPERATOR CPT-26559 Chest 2V Frontal and Lat 17:15:26 CDT CPT-00324 Abx/Therapy Injection 18:54:02 CDT CPT-J0696 Rocephin 1000 mg (Ceftriaxone) 16:00:32 CDT CPT-51783 Chest 2V Frontal and Lat 15:26:45 CDT CPT-71481 Chest 2V Frontal and Lat 10:23:27 CDT CPT-45384 Venipuncture Draw Fee 10:11:00 CDT CPT-02899 Administration single or combination vaccine inc oral 11 :56:38 CDT CPT-99894 Influenza split virus > age 3 11:56:38 CDT CPT-65323 Venipuncture Draw Fee 08:49:54 SPINNING LATHE OPERATOR CPT-08193 EKG Trac and Interp 17:54:19 SPINNING LATHE OPERATOR
--- OUTSIDE RECORDS SUMMARY | 2018-07-02 19:24 | XMS REPORT | Clinical Summary ---
Author Author Admin, TERELL Organization [facility] Address Unknown Phone Unavailable Allergies, Adverse [...] MD PhD Headache SINUSITIS, ACUTE 461.9 Resolved lAina Castaneda MD PhD Acute sinusitis, unspecified DIABETIC [...] Inactive Marvel MARROQUIN FATIGUE ICD-780.79 Inactive Alina Castnaeda MD PhD DIABETES MELLITUS, TYPE II, UNCONTROLLED [...] 10u lunch and supper INSULIN LISPRO (HUMAN) 76777780032 Active Marvel MARROQUIN Active LATUDA 120 MG ORAL TABS 1 pill by mouth nightly LURASIDONE HCL 20454513738 Active Alina Castaneda MD PhD Active COLACE 100 MG CAPS 1 pill by mouth twice daily, for constipation DOCUSATE SODIUM 08669107000 Active Alina Castaneda MD PhD Active TRUETEST TEST STRP check blood sugars 3x/day GLUCOSE BLOOD 92473668064 Active Marvel Mackenzieglari [employer]URE [employer] MEMBER Active ACCU-CHEK ROSA UZMA Use device to check blood sugars BLOOD GLUCOSE MONITORING SUPPL 19312611701 No Longer Active Marvel Mackenzieglari [employer]URE [employer] MEMBER Active ACCU-CHEK ROSA INVITR STRP use strips with device to check blood sugars 3 times daily GLUCOSE BLOOD 56297303707 No Longer Active Mallashondaeh Ziglari [employer]URE [employer] MEMBER Active VERAPAMIL HCL ER 180 MG ORAL CR-TABS 1 pill by mouth twice daily, for migraine prevention VERAPAMIL HCL 15818202114 Active Alina Castaneda MD PhD Active CYCLOBENZAPRINE HCL 10 MG TABS 1 tablet by mouth three times daily, scheduled CYCLOBENZAPRINE HCL 51148105430 No Longer Active Alina Castaneda MD PhD Active HUMALOG 100 UNIT/ML SOLN Take 20 units with breakfast, 10u with lunch and suppetr. INSULIN LISPRO (HUMAN) 30383675179 No Longer Active Alina Castaneda MD PhD Active TRUETEST TEST STRP check sugars 4x/day GLUCOSE BLOOD 63466403787 No Longer Active Alina Castaneda MD PhD Active MORPHINE SULFATE 30 MG TABS 1 pill by mouth twice daily, for pain MORPHINE SULFATE 42912948247 Active Mason Loredo MD Active ACYCLOVIR 400 MG ORAL TABS 1 pill three times daily x 5 days, for cold sore outbreak ACYCLOVIR 58733882621 No Longer Active Alina Castaneda MD PhD Active PENICILLIN V POTASSIUM 500 MG TABS 1 pill by mouth three times daily PENICILLIN V POTASSIUM 56235620037 No Longer Active Alina Castaneda MD PhD Active UROXATRAL 10 MG [id number] Take 1 tablet by mouth daily ALFUZOSIN HCL 50130809545 No Longer Active Alina Castaneda MD PhD Active THIOTHIXENE 5 MG CAPS by mouth twice a day THIOTHIXENE 77528456121 No Longer Active Alina Castaneda MD PhD Active ZYPREXA 7.5 MG TABS 1 at HS OLANZAPINE 03110706966 No Longer Active Alina Castaneda MD PhD Active LEVEMIR 100 UNIT/ML SOLN Take 70 u at 7-8pm INSULIN DETEMIR 05492293920 Active Marvel Charles [employer] MEMBER Active BD INSULIN SYRINGE 28G X 1/2" 1 ML MISC 1 four times per day INSULIN SYRINGE-NEEDLE U-100 74643944988 Active Marvel MENDOZAP Active TOLTERODINE TARTRATE 2 MG TABS 1 pill twice daily, for bladder TOLTERODINE TARTRATE 41496154677 Active Alina Castaneda MD PhD Active DETROL LA 4 MG [id number] Take 1 tablet by mouth daily TOLTERODINE TARTRATE 57918394921 No Longer Active Alina Castaneda MD PhD Active HYDROCODONE-ACETAMINOPHEN 5-325 MG TABS 2 tabs by mouth three times daily as needed for pain HYDROCODONE-ACETAMINOPHEN 78929052032 Active Alina Castaneda MD PhD Active TERESE CONTOUR TEST STRP monitor blood sugars 3x/day GLUCOSE BLOOD 87709386191 No Longer Active Alina Castaneda MD PhD Active EQL TRUETEST TEST STRP Test blood sugar TID GLUCOSE BLOOD 29887193416 No Longer Active Alina Castaneda MD PhD Active FLUTICASONE PROPIONATE 50 MCG/ACT SUSP 2 sprays each nostril qDay x 30 days FLUTICASONE PROPIONATE 64563184697 No Longer Active Alina Castaneda MD PhD Active IBUPROFEN 200 MG TABS 1 Q 6 hr. PRN IBUPROFEN 32657343296 No Longer Active Alina Castaneda MD PhD Active NIACIN ER 500 MG CR-TABS 4 qHS (for triglycerides) NIACIN 16961773132 No Longer Active Alina Castaneda MD PhD Active ALFUZOSIN HCL ER 10 MG [id number] 1 tablet daily ALFUZOSIN HCL 02440583636 Active Vanessa Hickey MD Active CLONAZEPAM 1 MG TABS 1 pill by mouth three times daily CLONAZEPAM 04746454744 Active Alina Castaneda MD PhD Active LOVAZA 1 GM CAPS 4 daily (for triglycerides) [id number] ETHYL ESTERS 77101588735 Active Mao Rodriguez MD Active SAPHRIS 5 MG SUBL by mouth twice a day ASENAPINE MALEATE 17286737444 No Longer Active Marvel MARROQUIN Active ACETAMINOPHEN 500 MG TABS 2 Q 6 hr. PRN ACETAMINOPHEN 03639310547 No Longer Active Marvel MARROQUIN Active ORPHENADRINE CITRATE ER 100 MG [id number]-QKK 1 every 12 hr. as needed ORPHENADRINE CITRATE 61233724755 No Longer Active Alina Castaneda MD PhD Active NIACIN CR 500 MG CR-TABS 2 qHS NIACIN 90771315842 No Longer Active Alina Castaneda MD PhD Active AMOXICILLIN 500 MG CAPS 2 po BID x 10 days AMOXICILLIN 74516872733 No Longer Active Alina Castaneda MD PhD Active HYDROCODONE-ACETAMINOPHEN 7.5-325 MG TABS 1 four times a day as needed for pain HYDROCODONE-ACETAMINOPHEN 71434378475 No Longer Active Alina Castaneda MD PhD Active METFORMIN HCL ER 500 MG [id number]-QRU Take three tablets by mouth everyday METFORMIN HCL 37281266747 Active Marvel MARROQUIN Active DOXEPIN HCL 10 MG CAPS Take 1 tablet by mouth daily DOXEPIN HCL 72848410527 No Longer Active Salina Ervinford [facility] Active NAVANE 10 MG CAPS 1/2 tablet twice a day THIOTHIXENE No Longer Active Salina Ervinford A Active CYCLOBENZAPRINE HCL 10 MG TABS 1/2 tablet by mouth every 8 hours as needed for muscle spasms CYCLOBENZAPRINE HCL 36581556890 No Longer Active Alina Castaneda MD PhD Active BACTROBAN 2 % CREAM apply to ear and nose twice daily MUPIROCIN CALCIUM 90201381522 No Longer Active Alina Castaneda MD PhD Active HYDROCODONE-ACETAMINOPHEN 5-325 MG TABS take one tablet by mouth every four hours as needed for pain HYDROCODONE-ACETAMINOPHEN 41084769050 No Longer Active Alina Castaneda MD PhD Active ZOLPIDEM TARTRATE 10 MG TABS take at bedtime ZOLPIDEM TARTRATE 66553767429 Active Alina Castaneda MD PhD Active ZYPREXA 5 MG TABS take one tablet by mouth every evening OLANZAPINE 99675394271 No Longer Active Alina Castaneda MD PhD Active ALBUTEROL SULFATE 0.083 % NEBU SOLN one vial per nebulizer TID and PRN cough/ soa ALBUTEROL SULFATE 79800290378 No Longer Active Alina Castaneda MD PhD Active GUAIFENESIN 600 MG [id number]-XMV 1 tablet by mouth twice daily if needed for cough GUAIFENESIN 06439651697 No Longer Active Marvel MARROQUIN Active AZITHROMYCIN 500 MG SOLR 1 po q day AZITHROMYCIN 45408548076 No Longer Active Alina Castaneda MD PhD Active METOPROLOL SUCCINATE 100 MG [id number] 1 by mouth daily for blood pressure METOPROLOL SUCCINATE 89045413928 Active Alina Castaneda MD PhD Active PROMETHAZINE-CODEINE 6.25-10 MG/5ML SYRP 1 tsp po q 6 hours prn cough PROMETHAZINE-CODEINE 13483652365 No Longer Active Alina Castaneda MD PhD Active CEFDINIR 300 MG CAPS by mouth twice a day CEFDINIR 77678815015 No Longer Active Alina Castaneda MD PhD Active METFORMIN HCL 500 MG [id number]-TVB Take 3 tablets by mouth everyday METFORMIN HCL 40836485960 No Longer Active Alina Castaneda MD PhD Active LEVEMIR 100 UNIT/ML SOLN 90 units SQ qHS INSULIN DETEMIR 27248067993 No Longer Active Marvel MARROQUIN Active TOPROL XL 100 MG [id number]-IVT 1 @ HS METOPROLOL SUCCINATE 81440007233 No Longer Active Marvel MARROQUIN Active ALLOPURINOL 300 MG TABS Take one by mouth daily ALLOPURINOL 16686533565 Active Alina Castaneda MD PhD Active ZYPREXA 10 MG TABS Take one by mouth daily OLANZAPINE 20371067843 No Longer Active Alina Castaneda MD PhD Active NOVOLOG 100 UNIT/ML SOLN 40 units with every meal INSULIN ASPART 90196991795 No Longer Active Alina Castaneda MD PhD Active VERAPAMIL HCL CR 120 MG TAB CR 1 qPM VERAPAMIL HCL 96773093425 No Longer Active Salina Han RMA Active ZYPREXA 15 MG TABS Take 1 tablet by mouth daily OLANZAPINE 16427945024 No Longer Active Marvel Mackenzieajayestela [employer]CH[employer]URE [employer] MEMBER Active LISINOPRIL 20 MG TABS 1 BID LISINOPRIL 71217983898 Active Alina Castaneda MD PhD Active ALBUTEROL SULFATE (2.5 MG/3ML) 0.083% NEBU 1 neb tid and prn cough ALBUTEROL SULFATE 66234561254 No Longer Active Alina Castaneda MD PhD Active FLUVOXAMINE MALEATE 100 MG TABS Take one (1) tablet by mouth am, 1/2 at noon, 1 pm FLUVOXAMINE MALEATE 40499455859 Active Alina Castaneda MD PhD Active TRAVATAN Z 0.004 % SOLN 1 gtt each eye daily TRAVOPROST 78856512073 Active CRYSTAL Suarez Active LANTUS 100 UNIT/ML SOLN 60 units sq q hs INSULIN GLARGINE 51143005819 No Longer Active CRYSTAL Suarez Active ALBUTEROL SULFATE (2.5 MG/3ML) 0.083% NEBU 1 neb tid and prn cough ALBUTEROL SULFATE (2.5 MG/3ML) 0.083% NEBU 072056 ALBUTEROL SULFATE Inactive ZYPREXA 15 MG TABS Take 1 tablet by mouth daily ZYPREXA 15 MG TABS 283084 OLANZAPINE Inactive VERAPAMIL HCL CR 120 MG TAB CR 1 qPM VERAPAMIL HCL CR 120 MG TAB CR VERAPAMIL HCL Inactive ZYPREXA 10 MG TABS Take one by mouth daily ZYPREXA 10 MG TABS 909256 OLANZAPINE Inactive TOPROL XL 100 MG [id number] 1 @ HS TOPROL XL 100 MG [id number] METOPROLOL SUCCINATE Inactive LEVEMIR 100 UNIT/ML SOLN 90 units SQ qHS LEVEMIR 100 UNIT/ML SOLN INSULIN DETEMIR Inactive PROMETHAZINE-CODEINE 6.25-10 MG/5ML SYRP 1 tsp po q 6 hours prn cough PROMETHAZINE-CODEINE 6.25-10 MG/5ML SYRP 297443 PROMETHAZINE- CODEINE Inactive GUAIFENESIN 600 MG [id number] 1 tablet by mouth twice daily if needed for cough GUAIFENESIN 600 MG [id number]-RSD GUAIFENESIN Inactive ALBUTEROL SULFATE 0.083 % NEBU SOLN one vial per nebulizer TID and PRN cough/ soa ALBUTEROL SULFATE 0.083 % NEBU SOLN 812124 ALBUTEROL SULFATE Inactive ZYPREXA 5 MG TABS take one tablet by mouth every evening ZYPREXA 5 MG TABS 789620 OLANZAPINE Inactive HYDROCODONE-ACETAMINOPHEN 5-325 MG TABS take one tablet by mouth every four hours as needed for pain HYDROCODONE-ACETAMINOPHEN 5-325 MG TABS 372698 HYDROCODONE-ACETAMINOPHEN Inactive BACTROBAN 2 % CREAM apply to ear and nose twice daily BACTROBAN 2 % CREAM 873010 MUPIROCIN CALCIUM Inactive CYCLOBENZAPRINE HCL 10 MG TABS 1/2 tablet by mouth every 8 hours as needed for muscle spasms CYCLOBENZAPRINE HCL 10 MG TABS 075875 CYCLOBENZAPRINE HCL Inactive NAVANE 10 MG CAPS 1/2 tablet twice a day NAVANE 10 MG CAPS THIOTHIXENE Inactive DOXEPIN HCL 10 MG CAPS Take 1 tablet by mouth daily DOXEPIN HCL 10 MG CAPS 8476658 DOXEPIN HCL Inactive HYDROCODONE-ACETAMINOPHEN 7.5-325 MG TABS 1 four times a day as needed for pain HYDROCODONE-ACETAMINOPHEN 7.5-325 MG TABS 395206 HYDROCODONE-ACETAMINOPHEN Inactive NIACIN CR 500 MG CR-TABS 2 qHS NIACIN CR 500 MG CR- TABS NIACIN Inactive ORPHENADRINE CITRATE ER 100 MG [id number]-HJY 1 every 12 hr. as needed ORPHENADRINE CITRATE ER 100 MG [id number] ORPHENADRINE CITRATE Inactive ACETAMINOPHEN 500 MG TABS 2 Q 6 hr. PRN ACETAMINOPHEN 500 MG TABS 588130 ACETAMINOPHEN Inactive SAPHRIS 5 MG SUBL by mouth twice a day SAPHRIS 5 MG SUBL ASENAPINE MALEATE Inactive NIACIN ER 500 MG CR-TABS 4 qHS (for triglycerides) NIACIN ER 500 MG CR-TABS NIACIN Inactive IBUPROFEN 200 MG TABS 1 Q 6 hr. PRN IBUPROFEN 200 MG TABS 876834 IBUPROFEN Inactive FLUTICASONE PROPIONATE 50 MCG/ACT SUSP 2 sprays each nostril qDay x 30 days FLUTICASONE PROPIONATE 50 MCG/ACT SUSP 904366 FLUTICASONE PROPIONATE Inactive EQL TRUETEST TEST STRP Test blood sugar TID EQL TRUETEST TEST STRP GLUCOSE BLOOD Inactive TERESE CONTOUR TEST STRP monitor blood sugars 3x/day TERESE CONTOUR TEST STRP GLUCOSE BLOOD Inactive DETROL LA 4 MG [id number] Take 1 tablet by mouth daily DETROL LA 4 MG [id number]-YPJ TOLTERODINE TARTRATE Inactive ZYPREXA 7.5 MG TABS 1 at HS ZYPREXA 7.5 MG TABS 731653 OLANZAPINE Inactive THIOTHIXENE 5 MG CAPS by mouth twice a day THIOTHIXENE 5 MG CAPS 286157 THIOTHIXENE Inactive UROXATRAL 10 MG [id number]-QDR Take 1 tablet by mouth daily UROXATRAL 10 MG [id number]-IEE ALFUZOSIN HCL Inactive ACYCLOVIR 400 MG ORAL TABS 1 pill three times daily x 5 days, for cold sore outbreak ACYCLOVIR 400 MG ORAL TABS 226972 ACYCLOVIR Inactive TRUETEST TEST STRP check sugars 4x/day TRUETEST TEST STRP GLUCOSE BLOOD Inactive HUMALOG 100 UNIT/ML SOLN Take 20 units with breakfast, 10u with lunch and suppetr. HUMALOG 100 UNIT/ML SOLN INSULIN LISPRO ( HUMAN) Inactive CYCLOBENZAPRINE HCL 10 MG TABS 1 tablet by mouth three times daily, scheduled CYCLOBENZAPRINE HCL 10 MG TABS 674731 CYCLOBENZAPRINE HCL Inactive ACCU-CHEK ROSA INVITR STRP use strips with device to check blood sugars 3 times daily ACCU-CHEK ROSA INVITR STRP GLUCOSE BLOOD Inactive ACCU-CHEK ROSA UZMA Use device to check blood sugars ACCU-CHEK ROSA UZMA BLOOD GLUCOSE MONITORING SUPPL Inactive CEFDINIR 300 MG CAPS by mouth twice a day CEFDINIR 300 MG CAPS 506936 CEFDINIR Inactive AZITHROMYCIN 500 MG SOLR 1 po q day AZITHROMYCIN 500 MG SOLR 635370 AZITHROMYCIN Inactive AMOXICILLIN 500 MG CAPS 2 po BID x 10 days AMOXICILLIN 500 MG CAPS 709975 AMOXICILLIN Inactive PENICILLIN V POTASSIUM 500 MG TABS 1 pill by mouth three times daily PENICILLIN V POTASSIUM 500 MG TABS 841821 PENICILLIN V POTASSIUM Inactive Immunizations Vaccine Administration [...] Fluvirin, Fluarix, Agriflu(>=18 yo)) Fluzone (>3 yrs.) [[id number]] Influenza, seasonal, injectable pneumococcal immunization administered Pneumovax [...] HGBA1C - Chemistry sodium, serum 130 mmol/L 569-803 5916/06/09 potassium, serum 4.0 mmol/L 3.5-5.2 chloride, serum 92 mmol/L 98-107 carbon dioxide, venous blood 22.1 mmol/L 21.0-32.0 blood glucose 60 mg/dL 65-110 calcium, serum 9.5 mg/dL 8.5-10.1 urea nitrogen, blood 14 mg/dL 7-18 creatinine, serum 1.30 mg/dL 0.60-1.30 hemoglobin A1C, blood, as % of total hemoglobin 6.0 % 4.3-6.0 sodium, serum 131 mmol/L 650-191 1690/12/30 potassium, serum 5.0 mmol/L 3.5-5.2 chloride, serum 95 mmol/L 98-107 carbon dioxide, venous blood 26.7 mmol/L 21.0-32.0 blood glucose 112 mg/dL 65-110 calcium, serum 9.2 mg/dL 8.5-10.1 urea nitrogen, blood 12 mg/dL 7-18 creatinine, serum 1.10 mg/dL 0.60-1.30 hemoglobin A1C, blood, as % of total hemoglobin 5.8 % 4.3-6.0 Lab Report: Basic Metabolic Panel, HGBA1C, MICROALBUMIN - Chemistry sodium, serum 137 mmol/L 060-624 6088/05/19 potassium, serum 5.2 mmol/L 3.5-5.2 chloride, serum [...] Panel - Chemistry sodium, serum 127 mmol/L 455-624 5045/10/27 potassium, serum 4.1 mmol/L 3.5-5.2 chloride, serum [...] mg/dL Encounters Code Encounter Date Provider Facility CPT-65280 Level 3 Est. Patient 09:26:40 CDT Marvel MARROQUIN [facility] CPT-56752 Level 3 Est. Patient 12:36:43 CDT Vanessa Hickey MD [facility] CPT-95496 Level 3 Est. Patient 12:57:49 CDT Vanessa Hickey MD [facility] CPT-20048 Level 3 Est. Patient 00:28:25 CDT Alina Castaneda MD PhD [facility] CPT-65665 Level 2 Est. Patient 12:52:14 CDT Alina Castaneda MD PhD [facility] CPT-59251 Level 3 Est. Patient 11:51:18 SYSTEMS TESTER Alina Castaneda MD PhD [facility]-17214 Level 3 Est. Patient 10:09:22 SYSTEMS TESTER Alina Castaneda MD [facility]-84696 Level 3 Est. Patient 14:36:26 SYSTEMS TESTER Marvel Charles [facility]-98596 Level 3 Est. Patient 13:34:47 SYSTEMS TESTER Alina Castaneda MD [facility]-82248 Level 3 Est. Patient 19:52:08 SYSTEMS TESTER Alina Castaneda MD [facility]-23398 Level 3 Est. Patient 10:01:51 [facility]STER [facility]-76071 Level 3 Est. Patient 21:54:06 CDT Vanessa Hickey MD [facility]-08069 Level 3 Est. Patient 08:54:46 CDT Alina Castaneda MD [facility]-08218 Level 3 Est. Patient 09:32:11 CDT Marvel Charles [facility]-34629 Level 3 Est. Patient 12:02:49 CDT Alina Castaneda MD [facility]-17039 Level 3 Est. Patient 19:17:33 CDT Alina Castaneda MD [facility]-23345 Level 3 Est. Patient 13:19:10 CDT Marvel Charles [facility]-97206 Level 3 Est. Patient 08:20:05 CDT Alina Castaneda MD [facility]-25951 Level 3 Est. Patient 15:17:18 CDT Alina Castaneda MD [facility]-86346 Level 3 Est. Patient 14:25:36 SYSTEMS TESTER Marvel Charles [facility]-82986 Level 3 Est. Patient 10:09:15 SYSTEMS TESTER Marvel Charles [facility]-31369 Level 3 Est. Patient 21:28:43 CDT Alina Castaneda MD [facility]-85518 Level 3 Est. [facility]:20[facility] Est. Patient 19:08:12 CDT Alina Castaneda MD [facility]-84916 Level 3 Est. Patient 15:06:39 [facility]-61057 Level 4 Est. Patient 17:48:15 CDT Alina Castaneda MD [facility]-90322 Level 3 Est. Patient 14:53:49 CDT Alina Castaneda MD [facility]-33242 Level 3 Est. Patient 09:35:16 CDT Alina Castaneda MD [facility]-31288 Level 3 Est. Patient 12:23:22 CDT Alina Castaneda MD [facility]-91590 Level 3 Est. Patient 16:19:15 CDT Alina Castaneda MD [facility]-26463 Level 3 Est. Patient 21:39:56 SYSTEMS TESTER Alina Castaneda MD [facility]-52079 Level 4 Est. Patient 14:12:56 SYSTEMS TESTER Alina Castaneda MD [facility]-53410 Level 2 Est. Patient 15:34:57 SYSTEMS TESTER Alina Castaneda MD [facility]-18996 Level 3 Est. Patient 12:17:04 SYSTEMS TESTER Alina Castaneda MD [facility]-57156 Level 3 Est. Patient 09:18:18 SYSTEMS TESTER Brooksjohn Charles [facility]-45225 Level 2 Est. Patient 21:50:24 CDT Alina Castaneda MD [facility]-36729 Level 3 Est. Patient 09:17:28 CDT Marvel Charles [facility]-67363 Level 4 Est. Patient 18:54:02 CDT Alina Castaneda MD [facility]02148 Level 3 Est. Patient 10:47:10 CDT Alina Castaneda MD [facility]20051 Level 3 Est. Patient 09:22:20 CDT Marvel Charles [facility]-28853 Level 3 Est. Patient 16:39:43 [facility]-66073 Level 3 Est. Patient 16:05:16 CDT Alina Castaneda MD PhD [facility]01704 Level 3 Est. Patient 00:29:15 CDT Alina Castaneda MD [facility]97057 Level 3 Est. Patient 10:49:22 SYSTEMS TESTER Marvel Charles [facility]-20452 Level 3 Est. Patient 21:30:19 SYSTEMS TESTER Alina Castaneda MD PhD [facility]-71028 Level 4 Est. Patient 17:04:11 SYSTEMS TESTER Marvel Charles [facility]-42079 Level 3 Est. Patient 15:34:11 SYSTEMS TESTER Marvel Charles [facility]-47423 Level 2 Est. Patient 12:51:58 SYSTEMS TESTER Alina Castaneda MD [facility]59601 Level 3 Est. Patient 13:20:01 SYSTEMS TESTER Alina Castaneda MD PhD [facility] CPT-92145 Level 3 Est. Patient 09:23:35 CDT Alina Castaneda MD PhD [facility] Procedures Code Procedure Name Date Entry Date Standard Description CPT-82704 Bladder Scan 12:36:44 CDT CPT-98855 Bladder Scan 21:54:06 CDT CPT-G0008 Administration of Influenza Virus Vaccine 13:05:26 CDT CPT-22080 Fluzone Quadrivalent Intramuscular Suspension 0.5 ML 13: 05:26 CDT CPT-86078 Administration single or combination vaccine inc oral 11 :49:51 CDT CPT-81011 Pneumovax 11:49:51 CDT CPT-44234 Ribs unilateral 2V 12:37:22 SYSTEMS TESTER CPT-78168 Chest 2V Frontal and Lat 17:15:26 CDT CPT-45318 Abx/Therapy Injection 18:54:02 CDT CPT-J0696 Rocephin 1000 mg (Ceftriaxone) 16:00:32 CDT CPT-10987 Chest 2V Frontal and Lat 15:26:45 CDT CPT-15084 Chest 2V Frontal and Lat 10:23:27 CDT CPT-65631 Venipuncture Draw Fee 10:11:00 CDT CPT-86470 Administration single or combination vaccine inc oral 11 :56:38 CDT CPT-75859 Influenza split virus > age 3 11:56:38 CDT CPT-09089 Venipuncture Draw Fee 08:49:54 SYSTEMS TESTER CPT-00989 EKG Trac and Interp 17:54:19 SYSTEMS TESTER
--- OUTSIDE RECORDS SUMMARY | 2018-07-02 19:26 | XMS REPORT | Clinical Summary ---
Author Author Admin, TERELL Organization [facility] Address Unknown Phone Unavailable [...] unspecified site, uncomplicated ANXIETY DISORDER 300.00 Active Alian Castaneda MD PhD Anxiety state, unspecified DIABETES, [...] 1 pill by mouth nightly LURASIDONE HCL 00210239181 Active Alina Castaneda MD PhD Active COLACE 100 MG CAPS 1 pill by mouth twice daily, for constipation DOCUSATE SODIUM 31432480615 Active Alina Castaneda MD PhD Active TRUETEST TEST STRP check blood sugars 3x/day GLUCOSE BLOOD 35458971944 Active Marvel MARROQUIN Active ACCU-CHEK ROSA UZMA Use device to check blood sugars BLOOD GLUCOSE MONITORING SUPPL 18147783262 No Longer Active Marvel MARROQUIN Active ACCU-CHEK ROSA INVITR STRP use strips with device to check blood sugars 3 times daily GLUCOSE BLOOD 58069102012 No Longer Active Marvel MARROQUIN Active VERAPAMIL HCL ER 180 MG ORAL CR-TABS 1 pill by mouth twice daily, for migraine prevention VERAPAMIL HCL 90757230039 Active Alina Castaneda MD PhD Active CYCLOBENZAPRINE HCL 10 MG TABS 1 tablet by mouth three times daily, scheduled CYCLOBENZAPRINE HCL 28189163018 No Longer Active Alina Castaneda MD PhD Active HUMALOG 100 UNIT/ML SOLN Take 20 units with breakfast, 10u with lunch and suppetr. INSULIN LISPRO (HUMAN) 12339609346 No Longer Active Alina Castaneda MD PhD Active TRUETEST TEST STRP check sugars 4x/day GLUCOSE BLOOD 18452480634 No Longer Active Alina Castaneda MD PhD Active MORPHINE SULFATE 30 MG TABS 1 pill by mouth twice daily, for pain MORPHINE SULFATE 95881108037 Active Alina Castaneda MD PhD Active ACYCLOVIR 400 MG ORAL TABS 1 pill three times daily x 5 days, for cold sore outbreak ACYCLOVIR 80840903761 No Longer Active Alina Castaneda MD PhD Active PENICILLIN V POTASSIUM 500 MG TABS 1 pill by mouth three times daily PENICILLIN V POTASSIUM 94474173878 No Longer Active Alina Castaneda MD PhD Active UROXATRAL 10 MG [id number]-LSS Take 1 tablet by mouth daily ALFUZOSIN HCL 53282153515 No Longer Active Alina Castaneda MD PhD Active THIOTHIXENE 5 MG CAPS by mouth twice a day THIOTHIXENE 16896237686 No Longer Active Alina Castaneda MD PhD Active ZYPREXA 7.5 MG TABS 1 at HS OLANZAPINE 97737404754 No Longer Active Alina Castaneda MD PhD Active LEVEMIR 100 UNIT/ML SOLN Take 70 u at 7-8pm INSULIN DETEMIR 78552248058 Active Maliheh Ziglari MUD JACK NOZZLEMAN Active BD INSULIN SYRINGE 28G X 1/2" 1 ML MISC 1 four times per day INSULIN SYRINGE-NEEDLE U-100 47958402573 Active Maliheh Ziglari MUD JACK NOZZLEMAN Active TOLTERODINE TARTRATE 2 MG TABS 1 pill twice daily, for bladder TOLTERODINE TARTRATE 00908488699 Active Alina Castaneda MD PhD Active DETROL LA 4 MG [id number]-SOG Take 1 tablet by mouth daily TOLTERODINE TARTRATE 19616369370 No Longer Active Alina Castaneda MD PhD Active HYDROCODONE-ACETAMINOPHEN 5-325 MG TABS 2 tabs by mouth three times daily as needed for pain HYDROCODONE-ACETAMINOPHEN 10482196198 Active Alina Castaneda MD PhD Active TERESE CONTOUR TEST STRP monitor blood sugars 3x/day GLUCOSE BLOOD 78917737817 No Longer Active Alina Castaneda MD PhD Active EQL TRUETEST TEST STRP Test blood sugar TID GLUCOSE BLOOD 62856597432 No Longer Active Alina Castaneda MD PhD Active FLUTICASONE PROPIONATE 50 MCG/ACT SUSP 2 sprays each nostril qDay x 30 days FLUTICASONE PROPIONATE 35990828224 No Longer Active Alina Castaneda MD PhD Active IBUPROFEN 200 MG TABS 1 Q 6 hr. PRN IBUPROFEN 60525071516 No Longer Active Alina Castaneda MD PhD Active NIACIN ER 500 MG CR-TABS 4 qHS (for triglycerides) NIACIN 43879995743 No Longer Active Alina Castaneda MD PhD Active ALFUZOSIN HCL ER 10 MG AP74T-BLI 1 tablet daily ALFUZOSIN HCL 26077131455 Active Vanessa Hickey MD Active CLONAZEPAM 1 MG TABS 1 pill by mouth three times daily CLONAZEPAM 92887044611 Active Alina Castaneda MD PhD Active LOVAZA 1 GM CAPS 4 daily (for triglycerides) LHVZQ-2-MYBY ETHYL ESTERS 95936446670 Active Alina Castaneda MD PhD Active SAPHRIS 5 MG SUBL by mouth twice a day ASENAPINE MALEATE 14291735619 No Longer Active Marvel MARROQUIN Active ACETAMINOPHEN 500 MG TABS 2 Q 6 hr. PRN ACETAMINOPHEN 81027732476 No Longer Active Maliheh Ziglari MUD JACK NOZZLEMAN Active ORPHENADRINE CITRATE ER 100 MG [id number]-CDT 1 every 12 hr. as needed ORPHENADRINE CITRATE 10194336916 No Longer Active Alina Castaneda MD PhD Active NIACIN CR 500 MG CR-TABS 2 qHS NIACIN 21860283735 No Longer Active Alina Castaneda MD PhD Active AMOXICILLIN 500 MG CAPS 2 po BID x 10 days AMOXICILLIN 97345146249 No Longer Active Alina Castaneda MD PhD Active HYDROCODONE-ACETAMINOPHEN 7.5-325 MG TABS 1 four times a day as needed for pain HYDROCODONE-ACETAMINOPHEN 83479365313 No Longer Active Alina Castaneda MD PhD Active METFORMIN HCL ER 500 MG CJ97N-PBT Take three tablets by mouth everyday METFORMIN HCL 42638263463 Active Alina Castaneda MD PhD Active DOXEPIN HCL 10 MG CAPS Take 1 tablet by mouth daily DOXEPIN HCL 75838523546 No Longer Active Salina Han [facility] Active NAVANE 10 MG CAPS 1/2 tablet twice a day THIOTHIXENE No Longer Active Salina Han [facility] Active CYCLOBENZAPRINE HCL 10 MG TABS 1/2 tablet by mouth every 8 hours as needed for muscle spasms CYCLOBENZAPRINE HCL 22196550750 No Longer Active Alina Castaneda MD PhD Active BACTROBAN 2 % CREAM apply to ear and nose twice daily MUPIROCIN CALCIUM 48182313392 No Longer Active Alina Castaneda MD PhD Active HYDROCODONE-ACETAMINOPHEN 5-325 MG TABS take one tablet by mouth every four hours as needed for pain HYDROCODONE-ACETAMINOPHEN 68689110423 No Longer Active Alina Castaneda MD PhD Active ZOLPIDEM TARTRATE 10 MG TABS take at bedtime ZOLPIDEM TARTRATE 65150698010 Active Alina Castaneda MD PhD Active ZYPREXA 5 MG TABS take one tablet by mouth every evening OLANZAPINE 83172524401 No Longer Active Alina Castaneda MD PhD Active ALBUTEROL SULFATE 0.083 % NEBU SOLN one vial per nebulizer TID and PRN cough/ soa ALBUTEROL SULFATE 24099547046 No Longer Active Alina Castaneda MD PhD Active GUAIFENESIN 600 MG TV84Q-POA 1 tablet by mouth twice daily if needed for cough GUAIFENESIN 29854212173 No Longer Active Marvel MARROQUIN Active AZITHROMYCIN 500 MG SOLR 1 po q day AZITHROMYCIN 87382626433 No Longer Active Alina Castaneda MD PhD Active METOPROLOL SUCCINATE 100 MG WG42E-SYR 1 by mouth daily for blood pressure METOPROLOL SUCCINATE 00794424916 Active Alina Castaneda MD PhD Active PROMETHAZINE-CODEINE 6.25-10 MG/5ML SYRP 1 tsp po q 6 hours prn cough PROMETHAZINE-CODEINE 04661893564 No Longer Active Alina Castaneda MD PhD Active CEFDINIR 300 MG CAPS by mouth twice a day CEFDINIR 72009721323 No Longer Active Alina Castaneda MD PhD Active METFORMIN HCL 500 MG TF27S-CSP Take 3 tablets by mouth everyday METFORMIN HCL 78753520517 No Longer Active Alina Castaneda MD PhD Active LEVEMIR 100 UNIT/ML SOLN 90 units SQ qHS INSULIN DETEMIR 25954122566 No Longer Active Marvel MARROQUIN Active TOPROL XL 100 MG AG93C-HWK 1 @ HS METOPROLOL SUCCINATE 43159770208 No Longer Active Marvel MARROQUIN Active ALLOPURINOL 300 MG TABS Take one by mouth daily ALLOPURINOL 10157977512 Active Alina Castaneda MD PhD Active ZYPREXA 10 MG TABS Take one by mouth daily OLANZAPINE 47974715068 No Longer Active Alina Castaneda MD PhD Active NOVOLOG 100 UNIT/ML SOLN 40 units with every meal INSULIN ASPART 37153694389 No Longer Active Alina Castaneda MD PhD Active VERAPAMIL HCL CR 120 MG TAB CR 1 qPM VERAPAMIL HCL 68854635755 No Longer Active Salina Han [facility] Active ZYPREXA 15 MG TABS Take 1 tablet by mouth daily OLANZAPINE 83448512226 No Longer Active Marvel Mackenzieanca MUD JACK NOZZLEMAN Active LISINOPRIL 20 MG TABS 1 BID LISINOPRIL 98821706937 Active Alina Castaneda MD PhD Active ALBUTEROL SULFATE (2.5 MG/3ML) 0.083% NEBU 1 neb tid and prn cough ALBUTEROL SULFATE 91940735021 No Longer Active Alina Castaneda MD PhD Active FLUVOXAMINE MALEATE 100 MG TABS Take one (1) tablet by mouth am, 1/2 at noon, 1 pm FLUVOXAMINE MALEATE 97392808144 Active Alina Castaneda MD PhD Active TRAVATAN Z 0.004 % SOLN 1 gtt each eye daily TRAVOPROST 83825011706 Active CRYSTAL Suarez Active LANTUS 100 UNIT/ML SOLN 60 units sq q hs INSULIN GLARGINE 82435021245 No Longer Active CRYSTAL Suarez Active ALBUTEROL SULFATE (2.5 MG/3ML) 0.083% NEBU 1 neb tid and prn cough ALBUTEROL SULFATE (2.5 MG/3ML) 0.083% NEBU 542863 ALBUTEROL SULFATE Inactive ZYPREXA 15 MG TABS Take 1 tablet by mouth daily ZYPREXA 15 MG TABS 082119 OLANZAPINE Inactive VERAPAMIL HCL CR 120 MG TAB CR 1 qPM VERAPAMIL HCL CR 120 MG TAB CR VERAPAMIL HCL Inactive ZYPREXA 10 MG TABS Take one by mouth daily ZYPREXA 10 MG TABS 578870 OLANZAPINE Inactive TOPROL XL 100 MG DM65C-AZS 1 @ HS TOPROL XL 100 MG FL73C-HBJ METOPROLOL SUCCINATE Inactive LEVEMIR 100 UNIT/ML SOLN 90 units SQ qHS LEVEMIR 100 UNIT/ML SOLN INSULIN DETEMIR Inactive PROMETHAZINE-CODEINE 6.25-10 MG/5ML SYRP 1 tsp po q 6 hours prn cough PROMETHAZINE-CODEINE 6.25-10 MG/5ML SYRP 264099 PROMETHAZINE- CODEINE Inactive GUAIFENESIN 600 MG LO20F-WHC 1 tablet by mouth twice daily if needed for cough GUAIFENESIN 600 MG AY30C-PVM GUAIFENESIN Inactive ALBUTEROL SULFATE 0.083 % NEBU SOLN one vial per nebulizer TID and PRN cough/ soa ALBUTEROL SULFATE 0.083 % NEBU SOLN 499527 ALBUTEROL SULFATE Inactive ZYPREXA 5 MG TABS take one tablet by mouth every evening ZYPREXA 5 MG TABS 950073 OLANZAPINE Inactive HYDROCODONE-ACETAMINOPHEN 5-325 MG TABS take one tablet by mouth every four hours as needed for pain HYDROCODONE-ACETAMINOPHEN 5-325 MG TABS 352680 HYDROCODONE-ACETAMINOPHEN Inactive BACTROBAN 2 % CREAM apply to ear and nose twice daily BACTROBAN 2 % CREAM 370464 MUPIROCIN CALCIUM Inactive CYCLOBENZAPRINE HCL 10 MG TABS 1/2 tablet by mouth every 8 hours as needed for muscle spasms CYCLOBENZAPRINE HCL 10 MG TABS 844378 CYCLOBENZAPRINE HCL Inactive NAVANE 10 MG CAPS 1/2 tablet twice a day NAVANE 10 MG CAPS THIOTHIXENE Inactive DOXEPIN HCL 10 MG CAPS Take 1 tablet by mouth daily DOXEPIN HCL 10 MG CAPS 4381027 DOXEPIN HCL Inactive HYDROCODONE-ACETAMINOPHEN 7.5-325 MG TABS 1 four times a day as needed for pain HYDROCODONE-ACETAMINOPHEN 7.5-325 MG TABS 046173 HYDROCODONE-ACETAMINOPHEN Inactive NIACIN CR 500 MG CR-TABS 2 qHS NIACIN CR 500 MG CR- TABS NIACIN Inactive ORPHENADRINE CITRATE ER 100 MG VM08L-HVM 1 every 12 hr. as needed ORPHENADRINE CITRATE ER 100 MG SO74X-WSR ORPHENADRINE CITRATE Inactive ACETAMINOPHEN 500 MG TABS 2 Q 6 hr. PRN ACETAMINOPHEN 500 MG TABS 688012 ACETAMINOPHEN Inactive SAPHRIS 5 MG SUBL by mouth twice a day SAPHRIS 5 MG SUBL ASENAPINE MALEATE Inactive NIACIN ER 500 MG CR-TABS 4 qHS (for triglycerides) NIACIN ER 500 MG CR-TABS NIACIN Inactive IBUPROFEN 200 MG TABS 1 Q 6 hr. PRN IBUPROFEN 200 MG TABS 591364 IBUPROFEN Inactive FLUTICASONE PROPIONATE 50 MCG/ACT SUSP 2 sprays each nostril qDay x 30 days FLUTICASONE PROPIONATE 50 MCG/ACT SUSP 528100 FLUTICASONE PROPIONATE Inactive EQL TRUETEST TEST STRP Test blood sugar TID EQL TRUETEST TEST STRP GLUCOSE BLOOD Inactive TERESE CONTOUR TEST STRP monitor blood sugars 3x/day TERESE CONTOUR TEST STRP GLUCOSE BLOOD Inactive DETROL LA 4 MG [id number]-CIN Take 1 tablet by mouth daily DETROL LA 4 MG [id number]-NCW TOLTERODINE TARTRATE Inactive ZYPREXA 7.5 MG TABS 1 at HS ZYPREXA 7.5 MG TABS 173801 OLANZAPINE Inactive THIOTHIXENE 5 MG CAPS by mouth twice a day THIOTHIXENE 5 MG CAPS 402464 THIOTHIXENE Inactive UROXATRAL 10 MG UP94U-BXC Take 1 tablet by mouth daily UROXATRAL 10 MG HU80Y-RPG ALFUZOSIN HCL Inactive ACYCLOVIR 400 MG ORAL TABS 1 pill three times daily x 5 days, for cold sore outbreak ACYCLOVIR 400 MG ORAL TABS 450589 ACYCLOVIR Inactive TRUETEST TEST STRP check sugars 4x/day TRUETEST TEST STRP GLUCOSE BLOOD Inactive HUMALOG 100 UNIT/ML SOLN Take 20 units with breakfast, 10u with lunch and suppetr. HUMALOG 100 UNIT/ML SOLN INSULIN LISPRO ( HUMAN) Inactive CYCLOBENZAPRINE HCL 10 MG TABS 1 tablet by mouth three times daily, scheduled CYCLOBENZAPRINE HCL 10 MG TABS 550822 CYCLOBENZAPRINE HCL Inactive ACCU-CHEK ROSA INVITR STRP use strips with device to check blood sugars 3 times daily ACCU-CHEK ROSA INVITR STRP GLUCOSE BLOOD Inactive ACCU-CHEK ROSA UZMA Use device to check blood sugars ACCU-CHEK ROSA UZMA BLOOD GLUCOSE MONITORING SUPPL Inactive CEFDINIR 300 MG CAPS by mouth twice a day CEFDINIR 300 MG CAPS 148649 CEFDINIR Inactive AZITHROMYCIN 500 MG SOLR 1 po q day AZITHROMYCIN 500 MG SOLR 389187 AZITHROMYCIN Inactive AMOXICILLIN 500 MG CAPS 2 po BID x 10 days AMOXICILLIN 500 MG CAPS 453913 AMOXICILLIN Inactive PENICILLIN V POTASSIUM 500 MG TABS 1 pill by mouth three times daily PENICILLIN V POTASSIUM 500 MG TABS 329624 PENICILLIN V POTASSIUM Inactive Immunizations Vaccine Administration [...] Fluvirin, Fluarix, Agriflu(>=18 yo)) Fluzone (>3 yrs.) [[id number]] Influenza, seasonal, injectable pneumococcal immunization administered Pneumovax [...] HGBA1C - Chemistry sodium, serum 130 mmol/L 905-753 6077/06/09 potassium, serum 4.0 mmol/L 3.5-5.2 chloride, serum 92 mmol/L 98-107 carbon dioxide, venous blood 22.1 mmol/L 21.0-32.0 blood glucose 60 mg/dL 65-110 calcium, serum 9.5 mg/dL 8.5-10.1 urea nitrogen, blood 14 mg/dL 7-18 creatinine, serum 1.30 mg/dL 0.60-1.30 hemoglobin A1C, blood, as % of total hemoglobin 6.0 % 4.3-6.0 sodium, serum 131 mmol/L 269-969 7527/12/30 potassium, serum 5.0 mmol/L 3.5-5.2 chloride, serum [...] 6.0 mg/dL 2.6-7.2 sodium, serum 130 mmol/L 376-513 5529/05/01 potassium, serum 5.2 mmol/L 3.5-5.2 chloride, serum [...] 0.40 mg/dL 0.00-1.00 cholesterol, serum 151 mg/dL 813-519 8092/05/01 triglyceride, serum, fasting 356 mg/dL 30-200 HDL [...] Panel - Chemistry sodium, serum 127 mmol/L 387-469 3097/10/27 potassium, serum 4.1 mmol/L 3.5-5.2 chloride, serum [...] mg/dL Encounters Code Encounter Date Provider Facility CPT-14536 Level 3 Est. Patient 12:57:49 CDT Vanessa Hickey MD [facility] CPT-76896 Level 3 Est. Patient 00:28:25 CDT Alina Castaneda MD PhD [facility] CPT-39825 Level 2 Est. Patient 12:52:14 CDT Alina Castaneda MD PhD [facility] CPT-38039 Level 3 Est. Patient 11:51:18 TOOL AND PRODUCTION PLANNER Alina Castaneda MD PhD [facility] CPT-58322 Level 3 Est. Patient 10:09:22 TOOL AND PRODUCTION PLANNER Alina Castaneda MD [facility]-35384 Level 3 Est. Patient 14:36:26 TOOL AND PRODUCTION PLANNER Marvel [facility]-61485 Level 3 Est. Patient 13:34:47 TOOL AND PRODUCTION PLANNER Alina Castaneda MD [facility]89962 Level 3 Est. Patient 19:52:08 TOOL AND PRODUCTION PLANNER Alina Castaneda MD [facility]89875 Level 3 Est. Patient 10:01:51 TOOL AND PRODUCTION PLANNER Brooks[facility]-48684 Level 3 Est. Patient 21:54:06 CDT Vanessa Hickey MD [facility]-34856 Level 3 Est. Patient 08:54:46 CDT Alina Castaneda MD [facility]-12795 Level 3 Est. Patient 09:32:11 CDT Marvel [facility]-33409 Level 3 Est. Patient 12:02:49 CDT Alina Castaneda MD [facility]-86757 Level 3 Est. Patient 19:17:33 CDT Alina Castaneda MD [facility]-86130 Level 3 Est. Patient 13:19:10 CDT Marvel [facility]-60133 Level 3 Est. Patient 08:20:05 CDT Alina Castaneda MD [facility]-31655 Level 3 Est. Patient 15:17:18 CDT Alina Castaneda MD [facility]24334 Level 3 Est. Patient 14:25:36 TOOL AND PRODUCTION PLANNER Marvel [facility]-80588 Level 3 Est. Patient 10:09:15 TOOL AND PRODUCTION PLANNER Marvel Arac[facility] CPT-84991 Level 3 Est. Patient 21:28:43 CDT Alina Castaneda MD [facility]-15833 Level 3 Est. [facility] Patient 19:08:12 CDT Alina Castaneda MD [facility]-18831 Level 3 Est. Patient 15:06:39 [facility]-32971 Level 4 Est. Patient 17:48:15 CDT Alina Castaneda MD [facility]-82771 Level 3 Est. Patient 14:53:49 CDT Alina Castaneda MD [facility]-77336 Level 3 Est. Patient 09:35:16 CDT Alina Castaneda MD [facility]-94445 Level 3 Est. Patient 12:23:22 CDT Alina Castaneda MD [facility]-58320 Level 3 Est. Patient 16:19:15 CDT Alina Castaneda MD [facility]-29256 Level 3 Est. Patient 21:39:56 [employer]OL AND PRODUCTION PLANNER Alina Castaneda MD [facility]-60087 Level 4 Est. Patient 14:12:56 TOOL AND PRODUCTION PLANNER Alina Castaneda MD [facility]-82148 Level 2 Est. Patient 15:34:57 TOOL AND PRODUCTION PLANNER Alina Castaneda MD [facility]-12825 Level 3 Est. Patient 12:17:04 TOOL AND PRODUCTION PLANNER Alina Castaneda MD [facility]-70909 Level 3 Est. Patient 09:18:18 TOOL AND PRODUCTION PLANNER Brooksjohn [facility]-64502 Level 2 Est. Patient 21:50:24 CDT Alina Castaneda MD [facility]-85298 Level 3 Est. Patient 09:17:28 CDT Marvel [facility]-66589 Level 4 Est. Patient 18:54:02 CDT Alina Castaneda MD [facility]39153 Level 3 Est. Patient 10:47:10 CDT Alina Castaneda MD [facility]69189 Level 3 Est. Patient 09:22:20 CDT Marvel [facility]-23146 Level 3 Est. Patient 16:39:43 [facility]-40526 Level 3 Est. Patient 16:05:16 CDT Alina Castaneda MD [facility]-62550 Level 3 Est. Patient 00:29:15 CDT Alina Castaneda MD [facility]-51181 Level 3 Est. Patient 10:49:22 TOOL AND PRODUCTION PLANNER Marvel [facility]-44183 Level 3 Est. Patient 21:30:19 TOOL AND PRODUCTION PLANNER Alina Castaneda MD [facility]-83579 Level 4 Est. Patient 17:04:11 TOOL AND PRODUCTION PLANNER Marvel [facility]-39471 Level 3 Est. Patient 15:34:11 TOOL AND PRODUCTION PLANNER Marvel [facility]-33689 Level 2 Est. Patient 12:51:58 TOOL AND PRODUCTION PLANNER Alina Castaneda MD [facility]06823 Level 3 Est. Patient 13:20:01 TOOL AND PRODUCTION PLANNER Alina Castaneda MD PhD [facility] CPT-01590 Level 3 Est. Patient 09:23:35 CDT Alina Castaneda MD PhD [facility] Procedures Code Procedure Name Date Entry Date Standard Description CPT-45721 Bladder Scan 21:54:06 CDT CPT-G0008 Administration of Influenza Virus Vaccine 13:05:26 CDT CPT-43247 Fluzone Quadrivalent Intramuscular Suspension 0.5 ML 13: 05:26 CDT CPT-48904 Administration single or combination vaccine inc oral 11 :49:51 CDT CPT-28263 Pneumovax 11:49:51 CDT CPT-50367 Ribs unilateral 2V 12:37:22 TOOL AND PRODUCTION PLANNER CPT-78014 Chest 2V Frontal and Lat 17:15:26 CDT CPT-56914 Abx/Therapy Injection 18:54:02 CDT CPT-J0696 Rocephin 1000 mg (Ceftriaxone) 16:00:32 CDT CPT-02260 Chest 2V Frontal and Lat 15:26:45 CDT CPT-02027 Chest 2V Frontal and Lat 10:23:27 CDT CPT-84656 Venipuncture Draw Fee 10:11:00 CDT CPT-97701 Administration single or combination vaccine inc oral 11 :56:38 CDT CPT-93518 Influenza split virus > age 3 11:56:38 CDT CPT-89497 Venipuncture Draw Fee 08:49:54 TOOL AND PRODUCTION PLANNER CPT-57287 EKG Trac and Interp 17:54:19 TOOL AND PRODUCTION PLANNER
--- OUTSIDE RECORDS SUMMARY | 2018-07-02 19:28 | XMS REPORT | Clinical Summary ---
Author Author Admin, TERELL Organization [employer] Address Unknown Phone Unavailable Allergies, Adverse Reactions, [...] Diabetes mellitus, type II 250.00 Active Marvel MARROQIUN Diabetes mellitus without mention of complication, type 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 Erazo TAILINGS WORKER Benign paroxysmal positional vertigo Vertigo, benign paroxysmal position 386.11 Inactive Mima Erazo TAILINGS WORKER Benign paroxysmal positional vertigo High-risk sexual behavior V69.2 Active Alina Castaneda MD PhD High-risk sexual behavior Erectile dysfunction 302.72 Active Alina Castaneda MD PhD Psychosexual dysfunction with inhibited sexual excitement Constipation 564.00 Active Alina Castaneda MD PhD Constipation, unspecified Skin lesion 709.9 Active Alina Castaneda MD PhD Unspecified disorder of skin and subcutaneous tissue Malaise and fatigue 780.79 Active Cherelle Speaks TAILINGS WORKER Other malaise and fatigue Diarrhea 787.91 Active Cherelle Speaks TAILINGS WORKER Diarrhea PHARYNGITIS 462 Active Cherelle Speaks TAILINGS WORKER Acute pharyngitis Colitis 558.9 Active Mima Erazo TAILINGS WORKER Other and unspecified noninfectious gastroenteritis and [...] PhD FH STROKE ICD-V17.1 Inactive Marvel Charles STUDY LEAD FATIGUE ICD-780.79 Inactive Alina Castaneda MD PhD [...] every night to prevent headaches TRAZODONE HCL 64400121931 Active Gabrielle Madl STRATEGY MANAGER Active LATUDA 60 MG ORAL TABS 1 tab daily LURASIDONE HCL 17250613361 Active Gabrielle Madl STRATEGY MANAGER Active CLONAZEPAM 1 MG TABS 1 pill by mouth three times daily CLONAZEPAM 17604845147 Active Gabrielle Madl STRATEGY MANAGER Active [facility] MILK OF MAGNESIA 400 MG/5ML ORAL SUSP 30ml by mouth bid prn MAGNESIUM HYDROXIDE 77229300104 Active Mason Loredo MD Active TYLENOL 8 HOUR 650 MG ORAL CR-TABS 1 tab QID prn ACETAMINOPHEN 87931486509 Active Mason Loredo MD Active MYLANTA GAS RELIEF MAXIMUM STR 125 MG ORAL CAPS 30cc every 4 hours prn 12/01 SIMETHICONE 72561020338 Active Mason Loredo MD Active IMODIUM A-D 2 MG ORAL TABS 1 tab QID as needed LOPERAMIDE HCL 44241021715 Active Mason Loredo MD Active FLUVOXAMINE MALEATE 50 MG ORAL TABS 1 tab by mouth daily FLUVOXAMINE MALEATE 86805439933 Active Mason Loredo MD Active TRAVATAN Z 0.004 % SOLN 1 gtt each eye daily TRAVOPROST 57472813771 No Longer Active Mason Loredo MD Active LISINOPRIL 20 MG TABS 1 BID LISINOPRIL 25318470690 No Longer Active Mason Loredo MD Active LEVEMIR FLEXTOUCH 100 UNIT/ML SC SOPN 60 units SQ each evening, for diabetes INSULIN DETEMIR 07105016442 Active Mason Loredo MD Active ZOLPIDEM TARTRATE 10 MG TABS take at bedtime ZOLPIDEM TARTRATE 22839314938 No Longer Active Mason Loredo MD Active HYDROCODONE-ACETAMINOPHEN 5-325 MG TABS 2 tabs by mouth three times daily for pain HYDROCODONE-ACETAMINOPHEN 34603492972 No Longer Active Mason Loredo MD Active ZOFRAN 4 MG TABS 1 po q4hr PRN Nausea ONDANSETRON HCL 04933547018 No Longer Active Mason Loredo MD Active LOMOTIL 2.5-0.025 MG ORAL TABS take 1-2 tabs PO after each stool, no more than 8 in 24 hours DIPHENOXYLATE-ATROPINE 08314638059 No Longer Active Mason Loredo MD Active COLACE 100 MG CAPS 1 pill by mouth twice daily, for constipation DOCUSATE SODIUM 66057761708 No Longer Active Mima Erazo APRN Active FLONASE ALLERGY RELIEF 50 MCG/ACT NASAL SUSP One spray each nostril BID x 1 week then daily FLUTICASONE PROPIONATE 87036618070 Active Mima Erazo APRN Active BD PEN NEEDLE MINI U/F 31G X 5 MM MISC 4 a day INSULIN PEN NEEDLE 88370438775 Active Marvel Mackenzieglari STUDY LEAD Active AMITIZA 24 MCG ORAL CAPS Take one capsule BID for constipation LUBIPROSTONE 74454717432 Active Mima Erazo APRN Active TRUEPLUS LANCETS 30G MISC 3 a day LANCETS 67204735009 Active Marvel MARROQUIN Active TOLTERODINE TARTRATE 2 MG TABS 1 pill twice daily, for bladder TOLTERODINE TARTRATE 99759967182 No Longer Active Vanessa Hickey MD Active AMITIZA 24 MCG ORAL CAPS Take one capsule BID for constipation. LUBIPROSTONE 41611651391 No Longer Active Vanessa Hickey MD Active FLUVOXAMINE MALEATE 100 MG ORAL TABS take one tab every AM et HS, and take 1/ 2 tab at noon FLUVOXAMINE MALEATE 82154017344 Active Grace Azam RMA Active METOPROLOL SUCCINATE 100 MG [id number] 1 by mouth daily for blood pressure METOPROLOL SUCCINATE 72400064610 No Longer Active Grace Azam RMA Active METFORMIN HCL ER 500 MG [id number] Take three tablets by mouth everyday METFORMIN HCL 01751911630 No Longer Active Grace Azam RMA Active LOVAZA 1 GM CAPS 4 daily (for triglycerides) OMEGA-3- ACID ETHYL ESTERS 42349767927 No Longer Active Grace Azam RMA Active TRAZODONE HCL 100 MG ORAL TABS 1 tab by mouth for sleep TRAZODONE HCL 69673464600 No Longer Active Grace Azam RMA Active NOVOFINE 32G X 6 MM MISC use one four times per day INSULIN PEN NEEDLE 60131293663 No Longer Active Grace Azam RMA Active BACTROBAN 2 % CREAM Apply to affected area BID for up to 10 days MUPIROCIN CALCIUM 82810510827 No Longer Active Grace Azam RMA Active KEFLEX 500 MG CAP 1 po BID x 7 days CEPHALEXIN 21542013941 No Longer Active Cherelle Avila APRN Active FLUVOXAMINE MALEATE 100 MG TABS Take one (1) tablet by mouth am, 1/2 at noon FLUVOXAMINE MALEATE 41157079190 No Longer Active Mima Yokum TAILINGS WORKER Active CORICIDIN HBP CONGESTION/COUGH 10-200 MG ORAL CAPS Take as directed on box as needed for cold/flu symptoms DEXTROMETHORPHAN-GUAIFENESIN 80065180840 Active Cherelle Avila TAILINGS WORKER Active OMEGA-3 300 MG ORAL CAPS 4 caps by mouth daily OMEGA-3 FATTY ACIDS 93272818075 Active Mima Erazo TAILINGS WORKER Active FLUVOXAMINE MALEATE 100 MG ORAL TABS Take 1/2 tab at noon FLUVOXAMINE MALEATE 91582548773 No Longer Active Cherelle Speakluciana TAILINGS WORKER Active [facility] LUBRICANT EYE DROPS 0.4-0.3 % OPHTH SOLN POLYETHYL GLYCOL-PROPYL GLYCOL 88144666365 Active Mima Erazo TAILINGS WORKER Active MIRALAX POWD 17g by mouth daily, for constipation POLYETHYLENE GLYCOL 3350 67951669779 Active Alina Castaneda MD PhD Active HUMALOG KWIKPEN 100 UNIT/ML SC SOPN 20 units with breakfast, 10 units with lunch, 10 units with dinner, for diabetes INSULIN LISPRO (HUMAN ) 30647964119 Active Alina Castaneda MD PhD Active LATUDA 120 MG ORAL TABS 1 pill by mouth nightly LURASIDONE HCL 31814551548 Active Alina Castaneda MD PhD Active TRUETEST TEST STRP check blood sugars 3x/day GLUCOSE BLOOD 77297287262 Active Marvel MENDOZAP Active ACCU-CHEK ROSA UZMA Use device to check blood sugars BLOOD GLUCOSE MONITORING SUPPL 41239944722 No Longer Active Maliheh Ziglari STUDY LEAD Active ACCU-CHEK ROSA INVITR STRP use strips with device to check blood sugars 3 times daily GLUCOSE BLOOD 68719666352 No Longer Active Mallashondaeh 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 STUDY LEAD Active VERAPAMIL HCL ER 180 MG ORAL CR-TABS 1 pill by mouth twice daily, for migraine prevention VERAPAMIL HCL 03618119131 Active CRYSTAL Rodrigues Active CYCLOBENZAPRINE HCL 10 MG TABS 1 tablet by mouth three times daily, scheduled CYCLOBENZAPRINE HCL 10436545567 No Longer Active Alina Castaneda MD PhD Active HUMALOG 100 UNIT/ML SOLN Take 20 units with breakfast, 10u with lunch and suppetr. INSULIN LISPRO (HUMAN) 32894198235 No Longer Active Alina Castaneda MD PhD Active TRUETEST TEST STRP check sugars 4x/day GLUCOSE BLOOD 17294762444 No Longer Active Alina Castaneda MD PhD Active MORPHINE SULFATE 30 MG TABS 1 pill by mouth twice daily, for pain MORPHINE SULFATE 17168473661 No Longer Active Mason Loredo MD Active ACYCLOVIR 400 MG ORAL TABS 1 pill three times daily x 5 days, for cold sore outbreak ACYCLOVIR 95017598152 No Longer Active Alina Castaneda MD PhD Active PENICILLIN V POTASSIUM 500 MG TABS 1 pill by mouth three times daily PENICILLIN V POTASSIUM 01910538880 No Longer Active Alina Castaneda MD PhD Active UROXATRAL 10 MG [id number]-[id number] Take 1 tablet by mouth daily ALFUZOSIN HCL 27325269691 No Longer Active Alina Castaneda MD PhD Active THIOTHIXENE 5 MG CAPS by mouth twice a day THIOTHIXENE 00501743823 No Longer Active Alina Castaneda MD PhD Active ZYPREXA 7.5 MG TABS 1 at HS OLANZAPINE 87301443414 No Longer Active Alina Castaneda MD PhD Active BD INSULIN SYRINGE 28G X 1/2" 1 ML MISC 1 four times per day INSULIN SYRINGE-NEEDLE U-100 48759764192 Active Marvel Mackenzieglestela STUDY LEAD Active DETROL LA 4 MG [id number] Take 1 tablet by mouth daily TOLTERODINE TARTRATE 74708123635 No Longer Active Alina Castaneda MD PhD Active TERESE CONTOUR TEST STRP monitor blood sugars 3x/day GLUCOSE BLOOD 70232308764 No Longer Active Alina Castaneda MD PhD Active EQL TRUETEST TEST STRP Test blood sugar TID GLUCOSE BLOOD 09937355037 No Longer Active Alina Castaneda MD PhD Active FLUTICASONE PROPIONATE 50 MCG/ACT SUSP 2 sprays each nostril qDay x 30 days FLUTICASONE PROPIONATE 62890513332 No Longer Active Alina Castaneda MD PhD Active IBUPROFEN 200 MG TABS 1 Q 6 hr. PRN IBUPROFEN 63506044676 No Longer Active Alina Castaneda MD PhD Active NIACIN ER 500 MG CR-TABS 4 qHS (for triglycerides) NIACIN 80227602159 No Longer Active Alina Castaneda MD PhD Active ALFUZOSIN HCL ER 10 MG [id number]-FFW 1 tablet daily ALFUZOSIN HCL 44093464213 Active CRYSTAL Rodrigues Active SAPHRIS 5 MG SUBL by mouth twice a day ASENAPINE MALEATE 65731892256 No Longer Active Mallashondaeh Ziglari STUDY LEAD Active ACETAMINOPHEN 500 MG TABS 2 Q 6 hr. PRN ACETAMINOPHEN 95601717294 No Longer Active Maliheh Ziglari STUDY LEAD Active ORPHENADRINE CITRATE ER 100 MG [id number] 1 every 12 hr. as needed ORPHENADRINE CITRATE 35463468762 No Longer Active Alina Castaneda MD PhD Active NIACIN CR 500 MG CR-TABS 2 qHS NIACIN 59159136478 No Longer Active Alina Castaneda MD PhD Active AMOXICILLIN 500 MG CAPS 2 po BID x 10 days AMOXICILLIN 81620123694 No Longer Active Alina Castaneda MD PhD Active HYDROCODONE-ACETAMINOPHEN 7.5-325 MG TABS 1 four times a day as needed for pain HYDROCODONE-ACETAMINOPHEN 18046018097 No Longer Active Alina Castaneda MD PhD Active DOXEPIN HCL 10 MG CAPS Take 1 tablet by mouth daily DOXEPIN HCL 87327182590 No Longer Active Salina Han RMA Active NAVANE 10 MG CAPS 1/2 tablet twice a day THIOTHIXENE No Longer Active Salina Han [facility] Active CYCLOBENZAPRINE HCL 10 MG TABS 1/2 tablet by mouth every 8 hours as needed for muscle spasms CYCLOBENZAPRINE HCL 83811104066 No Longer Active Alina Castaneda MD PhD Active BACTROBAN 2 % CREAM apply to ear and nose twice daily MUPIROCIN CALCIUM 74489537883 No Longer Active Alina Castaneda MD PhD Active HYDROCODONE-ACETAMINOPHEN 5-325 MG TABS take one tablet by mouth every four hours as needed for pain HYDROCODONE-ACETAMINOPHEN 16093828986 No Longer Active Alina Castaneda MD PhD Active ZYPREXA 5 MG TABS take one tablet by mouth every evening OLANZAPINE 98818002453 No Longer Active Alina Castaneda MD PhD Active ALBUTEROL SULFATE 0.083 % NEBU SOLN one vial per nebulizer TID and PRN cough/ soa ALBUTEROL SULFATE 33297312329 No Longer Active Alina Castaneda MD PhD Active GUAIFENESIN 600 MG [id number] 1 tablet by mouth twice daily if needed for cough GUAIFENESIN 75838704971 No Longer Active Marvel MARROUQIN Active AZITHROMYCIN 500 MG SOLR 1 po q day AZITHROMYCIN 57547136326 No Longer Active Alina Castaneda MD PhD Active PROMETHAZINE-CODEINE 6.25-10 MG/5ML SYRP 1 tsp po q 6 hours prn cough PROMETHAZINE-CODEINE 92161915216 No Longer Active Alina Castaneda MD PhD Active CEFDINIR 300 MG CAPS by mouth twice a day CEFDINIR 61356008692 No Longer Active Alina Castaneda MD PhD Active METFORMIN HCL 500 MG [id number] Take 3 tablets by mouth everyday METFORMIN HCL 19443636876 No Longer Active Alina Castaneda MD PhD Active LEVEMIR 100 UNIT/ML SOLN 90 units SQ qHS INSULIN DETEMIR 42716090764 No Longer Active Marvel MARROQUIN Active TOPROL XL 100 MG [id number] 1 @ HS METOPROLOL SUCCINATE 77122635968 No Longer Active Marvel MARROQUIN Active ALLOPURINOL 300 MG TABS Take one by mouth daily ALLOPURINOL 24727194391 Active Mima Erazo TAILINGS WORKER Active ZYPREXA 10 MG TABS Take one by mouth daily OLANZAPINE 54343077075 No Longer Active Alina Castaneda MD PhD Active NOVOLOG 100 UNIT/ML SOLN 40 units with every meal INSULIN ASPART 43537223356 No Longer Active Alina Castaneda MD PhD Active VERAPAMIL HCL CR 120 MG TAB CR 1 qPM VERAPAMIL HCL 18073158016 No Longer Active Salina ROJAS Active ZYPREXA 15 MG TABS Take 1 tablet by mouth daily OLANZAPINE 14926587653 No Longer Active Marvel MARROQUIN Active ALBUTEROL SULFATE (2.5 MG/3ML) 0.083% NEBU 1 neb tid and prn cough ALBUTEROL SULFATE 16784114993 No Longer Active Alina Castaneda MD PhD Active LANTUS 100 UNIT/ML SOLN 60 units sq q hs INSULIN GLARGINE 68899900111 No Longer Active CRYSTAL Suarez Active ALBUTEROL SULFATE (2.5 MG/3ML) 0.083% NEBU 1 neb tid and prn cough ALBUTEROL SULFATE (2.5 MG/3ML) 0.083% NEBU 056348 ALBUTEROL SULFATE Inactive ZYPREXA 15 MG TABS Take 1 tablet by mouth daily ZYPREXA 15 MG TABS 304046 OLANZAPINE Inactive VERAPAMIL HCL CR 120 MG TAB CR 1 qPM VERAPAMIL HCL CR 120 MG TAB CR VERAPAMIL HCL Inactive ZYPREXA 10 MG TABS Take one by mouth daily ZYPREXA 10 MG TABS 283698 OLANZAPINE Inactive TOPROL XL 100 MG [id number] 1 @ HS TOPROL XL 100 MG [id number] METOPROLOL SUCCINATE Inactive LEVEMIR 100 UNIT/ML SOLN 90 units SQ qHS LEVEMIR 100 UNIT/ML SOLN INSULIN DETEMIR Inactive PROMETHAZINE-CODEINE 6.25-10 MG/5ML SYRP 1 tsp po q 6 hours prn cough PROMETHAZINE-CODEINE 6.25-10 MG/5ML SYRP 146808 PROMETHAZINE- CODEINE Inactive GUAIFENESIN 600 MG [id number]-PLD 1 tablet by mouth twice daily if needed for cough GUAIFENESIN 600 MG [id number] GUAIFENESIN Inactive ALBUTEROL SULFATE 0.083 % NEBU SOLN one vial per nebulizer TID and PRN cough/ soa ALBUTEROL SULFATE 0.083 % NEBU SOLN 344910 ALBUTEROL SULFATE Inactive ZYPREXA 5 MG TABS take one tablet by mouth every evening ZYPREXA 5 MG TABS 923950 OLANZAPINE Inactive HYDROCODONE-ACETAMINOPHEN 5-325 MG TABS take one tablet by mouth every four hours as needed for pain HYDROCODONE-ACETAMINOPHEN 5-325 MG TABS 300466 HYDROCODONE-ACETAMINOPHEN Inactive BACTROBAN 2 % CREAM apply to ear and nose twice daily BACTROBAN 2 % CREAM 814232 MUPIROCIN CALCIUM Inactive CYCLOBENZAPRINE HCL 10 MG TABS 1/2 tablet by mouth every 8 hours as needed for muscle spasms CYCLOBENZAPRINE HCL 10 MG TABS 046538 CYCLOBENZAPRINE HCL Inactive NAVANE 10 MG CAPS 1/2 tablet twice a day NAVANE 10 MG CAPS THIOTHIXENE Inactive DOXEPIN HCL 10 MG CAPS Take 1 tablet by mouth daily DOXEPIN HCL 10 MG CAPS 5754473 DOXEPIN HCL Inactive HYDROCODONE-ACETAMINOPHEN 7.5-325 MG TABS 1 four times a day as needed for pain HYDROCODONE-ACETAMINOPHEN 7.5-325 MG TABS 788324 HYDROCODONE-ACETAMINOPHEN Inactive NIACIN CR 500 MG CR-TABS 2 qHS NIACIN CR 500 MG CR- TABS NIACIN Inactive ORPHENADRINE CITRATE ER 100 MG [id number] 1 every 12 hr. as needed ORPHENADRINE CITRATE ER 100 MG [id number] ORPHENADRINE CITRATE Inactive ACETAMINOPHEN 500 MG TABS 2 Q 6 hr. PRN ACETAMINOPHEN 500 MG TABS 508802 ACETAMINOPHEN Inactive SAPHRIS 5 MG SUBL by mouth twice a day SAPHRIS 5 MG SUBL ASENAPINE MALEATE Inactive NIACIN ER 500 MG CR-TABS 4 qHS (for triglycerides) NIACIN ER 500 MG CR-TABS NIACIN Inactive IBUPROFEN 200 MG TABS 1 Q 6 hr. PRN IBUPROFEN 200 MG TABS 234373 IBUPROFEN Inactive FLUTICASONE PROPIONATE 50 MCG/ACT SUSP 2 sprays each nostril qDay x 30 days FLUTICASONE PROPIONATE 50 MCG/ACT SUSP 756246 FLUTICASONE PROPIONATE Inactive EQL TRUETEST TEST STRP Test blood sugar TID EQL TRUETEST TEST STRP GLUCOSE BLOOD Inactive TERESE CONTOUR TEST STRP monitor blood sugars 3x/day TERESE CONTOUR TEST STRP GLUCOSE BLOOD Inactive DETROL LA 4 MG [id number] Take 1 tablet by mouth daily DETROL LA 4 MG [id number] TOLTERODINE TARTRATE Inactive ZYPREXA 7.5 MG TABS 1 at HS ZYPREXA 7.5 MG TABS 102815 OLANZAPINE Inactive THIOTHIXENE 5 MG CAPS by mouth twice a day THIOTHIXENE 5 MG CAPS 760551 THIOTHIXENE Inactive UROXATRAL 10 MG [id number]-GQT Take 1 tablet by mouth daily UROXATRAL 10 MG [id number]-SHD ALFUZOSIN HCL Inactive ACYCLOVIR 400 MG ORAL TABS 1 pill three times daily x 5 days, for cold sore outbreak ACYCLOVIR 400 MG ORAL TABS 286395 ACYCLOVIR Inactive TRUETEST TEST STRP check sugars 4x/day TRUETEST TEST STRP GLUCOSE BLOOD Inactive HUMALOG 100 UNIT/ML SOLN Take 20 units with breakfast, 10u with lunch and suppetr. HUMALOG 100 UNIT/ML SOLN INSULIN LISPRO ( HUMAN) Inactive CYCLOBENZAPRINE HCL 10 MG TABS 1 tablet by mouth three times daily, scheduled CYCLOBENZAPRINE HCL 10 MG TABS 251823 CYCLOBENZAPRINE HCL Inactive ACCU-CHEK ROSA INVITR STRP use strips with device to check blood sugars 3 times daily ACCU-CHEK ROSA INVITR STRP GLUCOSE BLOOD Inactive ACCU-CHEK ROSA UZMA Use device to check blood sugars ACCU-CHEK ROSA UZMA BLOOD GLUCOSE MONITORING SUPPL Inactive FLUVOXAMINE MALEATE 100 MG ORAL TABS Take 1/2 tab at noon FLUVOXAMINE MALEATE 100 MG ORAL TABS 304398 FLUVOXAMINE MALEATE Inactive FLUVOXAMINE MALEATE 100 MG TABS Take one (1) tablet by mouth am, 1/2 at noon FLUVOXAMINE MALEATE 100 MG TABS 549834 FLUVOXAMINE MALEATE Inactive BACTROBAN 2 % CREAM Apply to affected area BID for up to 10 days BACTROBAN 2 % CREAM 117298 MUPIROCIN CALCIUM Inactive NOVOFINE 32G X 6 MM MISC use one four times per day NOVOFINE 32G X 6 MM MISC INSULIN PEN NEEDLE Inactive TRAZODONE HCL 100 MG ORAL TABS 1 tab by mouth for sleep TRAZODONE HCL 100 MG ORAL TABS 052224 TRAZODONE HCL Inactive LOVAZA 1 GM CAPS 4 daily (for triglycerides) LOVAZA 1 GM CAPS 830926 ILSQL-3-UNDW ETHYL ESTERS Inactive METFORMIN HCL ER 500 MG [id number]-[id number] Take three tablets by mouth everyday METFORMIN HCL ER 500 MG NE10N-XQD METFORMIN HCL Inactive METOPROLOL SUCCINATE 100 MG [id number] 1 by mouth daily for blood pressure METOPROLOL SUCCINATE 100 MG [id number]-XKS METOPROLOL SUCCINATE Inactive AMITIZA 24 MCG ORAL CAPS Take one capsule BID for constipation. AMITIZA 24 MCG ORAL CAPS LUBIPROSTONE Inactive TOLTERODINE TARTRATE 2 MG TABS 1 pill twice daily, for bladder TOLTERODINE TARTRATE 2 MG TABS 286851 TOLTERODINE TARTRATE Inactive COLACE 100 MG CAPS 1 pill by mouth twice daily, for constipation COLACE 100 MG CAPS 4416776 DOCUSATE SODIUM Inactive LOMOTIL 2.5-0.025 MG ORAL TABS take 1-2 tabs PO after each stool, no more than 8 in 24 hours LOMOTIL 2.5-0.025 MG ORAL TABS 7692397 DIPHENOXYLATE-ATROPINE Inactive ZOFRAN 4 MG TABS 1 po q4hr PRN Nausea ZOFRAN 4 MG TABS 105732 ONDANSETRON HCL Inactive HYDROCODONE-ACETAMINOPHEN 5-325 MG TABS 2 tabs by mouth three times daily for pain HYDROCODONE-ACETAMINOPHEN 5-325 MG TABS 730844 HYDROCODONE-ACETAMINOPHEN Inactive ZOLPIDEM TARTRATE 10 MG TABS take at bedtime ZOLPIDEM TARTRATE 10 MG TABS 850124 ZOLPIDEM TARTRATE Inactive LISINOPRIL 20 MG TABS 1 BID LISINOPRIL 20 MG TABS 639423 LISINOPRIL Inactive TRAVATAN Z 0.004 % SOLN 1 gtt each eye daily TRAVATAN Z 0.004 % SOLN TRAVOPROST Inactive CEFDINIR 300 MG CAPS by mouth twice a day CEFDINIR 300 MG CAPS 538796 CEFDINIR Inactive AZITHROMYCIN 500 MG SOLR 1 po q day AZITHROMYCIN 500 MG SOLR 48402369325 AZITHROMYCIN Inactive AMOXICILLIN 500 MG CAPS 2 po BID x 10 days AMOXICILLIN 500 MG CAPS 682149 AMOXICILLIN Inactive PENICILLIN V POTASSIUM 500 MG TABS 1 pill by mouth three times daily PENICILLIN V POTASSIUM 500 MG TABS 730780 PENICILLIN V POTASSIUM Inactive KEFLEX 500 MG CAP 1 po BID x 7 days KEFLEX 500 MG CAP 877775 CEPHALEXIN Inactive Immunizations Vaccine Administration Date Value [...] Fluvirin, Fluarix, Agriflu(>=18 yo)) Fluzone (>3 yrs.) [[id number]] Influenza, seasonal, injectable pneumococcal immunization administered Pneumovax [...] Panel - Chemistry sodium, serum 137 mmol/L 979-982 8490/10/12 potassium, serum 4.8 mmol/L 3.5-5.2 chloride, serum 102 mmol/L 98-107 carbon dioxide, venous blood 27.6 mmol/L 21.0-32.0 blood glucose 168 mg/dL 65-110 calcium, serum 9.0 mg/dL 8.5-10.1 urea nitrogen, blood 15 mg/dL 7-18 creatinine, serum 1.04 mg/dL 0.55-1.30 sodium, serum 138 mmol/L 196-351 2765/11/11 potassium, serum 4.7 mmol/L 3.5-5.2 chloride, serum [...] % 11.6-14.8 platelet count 240 10^3/MM^3 10*3/mm3 871-251 7157/11/11 leukocyte count, blood 9.6 10^3/MM^3 10*3/mm3 4.6-10.2 [...] Acid - Chemistry cholesterol, serum 187 mg/dL 125-922 9771/06/14 triglyceride, serum, fasting 246 mg/dL 30-200 HDL [...] negative Encounters Code Encounter Date Provider Facility CPT-04040 Level 3 Est. Patient 14:34:52 CDT Vanessa Hickey MD [facility]-60428 Level 3 Est. Patient 16:27:51 CDT Mima Erazo [facility]-39274 Level 3 Est. Patient 14:39:00 RAIL CAR WELDER Vanessa Hickey MD [facility]-34830 Level 2 Est. Patient 18:43:34 CDT Mima Erazo [facility] CPT-48140 Level 3 Est. Patient 16:22:09 CDT Cherelleetta Avila [facility] CPT-23368 Level 4 Est. Patient 17:55:14 CDT Mima Erazo [facility] CPT-44543 Level 2 Est. Patient 17:13:21 CDT Alina Castaneda MD PhD [facility]-30136 Level 3 Est. Patient 14:46:15 CDT Vanessa Hickey MD [facility] [place] Level 3 Est. Patient 09:34:56 CDT Alina Castaneda MD PhD [facility] [place] Level 3 Est. Patient 21:40:19 CDT Mima Erazo APRN [facility]-92880 Level 3 Est. Patient 09:26:40 CDT Zainnivia Arac[facility]-50054 Level 3 Est. Patient 12:36:43 CDT Vanessa Hickey MD [facility]-29464 Level 3 Est. Patient 12:57:49 CDT Vanessa Hickey MD [facility]-96982 Level 3 Est. Patient 00:28:25 CDT Alina Castaneda MD [facility]-89326 Level 2 Est. Patient 12:52:14 CDT Alina Castaneda MD [facility]10115 Level 3 Est. Patient 11:51:18 RAIL CAR WELDER Alina Castaneda MD [facility] [place]51 Level 3 Est. Patient 10:09:22 RAIL CAR WELDER Alina Castaneda MD [facility]35348 Level 3 Est. Patient 14:36:26 RAIL CAR WELDER Marvel Charles [facility]-35540 Level 3 Est. Patient 13:34:47 RAIL CAR WELDER Alina Castaneda MD [facility] [place]-71270 Level 3 Est. Patient 19:52:08 RAIL CAR WELDER Alina Castaneda MD [facility] [place]-83904 Level 3 Est. Patient 10:01:51 RAIL CAR WELDER Marvel Charles [facility]-91471 Level 3 Est. Patient 21:54:06 CDT Vanessa Hickey MD [facility]-77491 Level 3 Est. Patient 08:54:46 CDT Alina Castaneda MD [facility] [place]-01374 Level 3 Est. Patient 09:32:11 CDT Marvel Charles [facility]-46810 Level 3 Est. Patient 12:02:49 CDT Alina Castaneda MD [facility] [place]-85062 Level 3 Est. Patient 19:17:33 CDT Alina Castaneda MD [facility] [place]-36105 Level 3 Est. Patient 13:19:10 [facility] CPT-60508 Level 3 Est. Patient 08:20:05 CDT Alina Castaneda MD [facility] [place]-71610 Level 3 Est. Patient 15:17:18 CDT Alina Castaneda MD [facility] [place]-64771 Level 3 Est. Patient 14:25:36 RAIL CAR WELDER [facility]39407 Level 3 Est. Patient 10:09:15 RAIL CAR WELDER [facility]188 Level 3 Est. Patient 21:28:43 CDT Alina Castaneda MD [facility] [place]-05668 Level 3 Est. Patient 15:20:11 CDT [facility] Est[facility] Patient 19:08:12 CDT Alina Castaneda MD [facility] [place]-94866 Level 3 Est. Patient 15:06:39 CDT Brook[place] Charles [facility] CPT-26941 Level 4 Est. Patient 17:48:15 CDT Alina Castaneda MD [facility] [place]-70870 Level 3 Est. Patient 14:53:49 CDT Alina Castaneda MD [facility] [place]-41969 Level 3 Est. Patient 09:35:16 CDT Alina Castaneda MD [facility] [place]-15087 Level 3 Est. Patient 12:23:22 CDT Alina Castaneda MD [facility] [place] [facility] Level 3 Est. Patient 16:19:15 CDT Alina Castaneda MD [facility] [place] [facility] Level 3 Est. Patient 21:39:56 RAIL CAR WELDER Alina Castaneda MD [facility] [place] [facility] [place] Level 4 Est. Patient 14:12:56 RAIL CAR WELDER Alina Castaneda MD [facility] [place] [facility] Level 2 Est. Patient 15:34:57 RAIL CAR WELDER Alina Castaneda MD [facility] [place] [facility] [place]-[address] Level 3 Est. Patient 12:17:04 RAIL CAR WELDER Alina Castaneda MD [facility] [place] [facility] [place]-[address]19 Level 3 Est. Patient 09:18:18 [facility]DER [facility]15 Level 2 Est. Patient 21:50:24 CDT Alina Castaneda MD [facility] [place] [facility] [place]-[address]300 Level 3 Est. Patient 09:17:28 CDT Marvel Charles [facility]-36253 Level 4 Est. Patient 18:54:02 CDT Alina Castaneda MD [facility] [place] [facility] [place]-[address]26 Level 3 Est. Patient 10:47:10 CDT Alina Castaneda MD [facility] [place] [facility] [place] Level 3 Est. Patient 09:22:20 CDT Marvel Charles [facility]-74061 Level 3 Est. Patient 16:39:43 CDT Marvel Charles [facility]-50739 Level 3 Est. Patient 16:05:16 CDT Alina Castaneda MD [facility]72042 Level 3 Est. Patient 00:29:15 CDT Alina Castaneda MD [facility] CPT-98028 Level 3 Est. Patient 10:49:22 RAIL CAR WELDER Marvel Charles [facility] CPT-26771 Level 3 Est. Patient 21:30:19 RAIL CAR WELDER Alina Castaneda MD [facility] CPT-51797 Level 4 Est. Patient 17:04:11 RAIL CAR WELDER Marvel Charles [facility] CPT-22772 Level 3 Est. Patient 15:34:11 RAIL CAR WELDER Brooksnivia Charles [facility] CPT-80527 Level 2 Est. Patient 12:51:58 RAIL CAR WELDER Alina Castaneda MD [facility] CPT-26175 Level 3 Est. Patient 13:20:01 RAIL CAR WELDER Alina Castaneda MD [facility] CPT-02539 Level 3 Est. Patient 09:23:35 CDT Alina Castaneda MD [facility] Procedures Code Procedure Name Date Entry Date Standard Description CPT-TCMM Transitional Care Mgmt-Moderate 10:25:31 CDT CPT-99207 Bladder Scan 14:34:53 CDT CPT-41275 Bladder Scan 14:39:01 RAIL CAR WELDER CPT-TCMM Transitional Care Mgmt-Moderate 10:30:19 RAIL CAR WELDER CPT-70824 Bladder Scan 12:36:44 CDT CPT-26724 Bladder Scan 21:54:06 CDT CPT-G0008 Administration of Influenza Virus Vaccine 13:05:26 CDT CPT-11496 Fluzone Quadrivalent Intramuscular Suspension 0.5 ML 13: 05:26 CDT CPT-38963 Administration single or combination vaccine inc oral 11 :49:51 CDT CPT-31252 Pneumovax 11:49:51 CDT CPT-82887 Ribs unilateral 2V 12:37:22 RAIL CAR WELDER CPT-28907 Chest 2V Frontal and Lat 17:15:26 CDT CPT-17873 Abx/Therapy Injection 18:54:02 CDT CPT-J0696 Rocephin 1000 mg (Ceftriaxone) 16:00:32 CDT CPT-08478 Chest 2V Frontal and Lat 15:26:45 CDT CPT-22070 Chest 2V Frontal and Lat 10:23:27 CDT CPT-80239 Venipuncture Draw Fee 10:11:00 CDT CPT-87631 Administration single or combination vaccine inc oral 11 :56:38 CDT CPT-67648 Influenza split virus > age 3 11:56:38 CDT CPT-66148 Venipuncture Draw Fee 08:49:54 RAIL CAR WELDER CPT-80645 EKG Trac and Interp 17:54:19 RAIL CAR WELDER
--- OUTSIDE RECORDS SUMMARY | 2018-07-02 19:29 | XMS REPORT | Clinical Summary ---
[...] STRP check blood sugars 3x/day GLUCOSE BLOOD 90680220980 Active Marvel MARROQUIN Active ACCU-CHEK ROSA UZMA Use device to check blood sugars BLOOD GLUCOSE MONITORING SUPPL 98215070022 No Longer Active Marvel MARROQUIN Active ACCU-CHEK ROSA INVITR STRP use strips with device to check blood sugars 3 times daily GLUCOSE BLOOD 98418062896 No Longer Active Marvel MARROQUIN Active VERAPAMIL HCL ER 180 MG ORAL CR-TABS 1 pill by mouth twice daily, for migraine prevention VERAPAMIL HCL 88491498912 Active Alina Castaneda MD PhD Active CYCLOBENZAPRINE HCL 10 MG TABS 1 tablet by mouth three times daily, scheduled CYCLOBENZAPRINE HCL 95616548400 No Longer Active Alina Castaneda MD PhD Active HUMALOG 100 UNIT/ML SOLN Take 20 units with breakfast, 10u with lunch and suppetr. INSULIN LISPRO (HUMAN) 23343991580 No Longer Active Alina Castaneda MD PhD Active TRUETEST TEST STRP check sugars 4x/day GLUCOSE BLOOD 32232410568 No Longer Active Alina Castaneda MD PhD Active MORPHINE SULFATE 30 MG TABS 1 pill by mouth twice daily, for pain MORPHINE SULFATE 38978743266 Active Alina Castaneda MD PhD Active ACYCLOVIR 400 MG ORAL TABS 1 pill three times daily x 5 days, for cold sore outbreak ACYCLOVIR 42459655316 No Longer Active Alina Castaneda MD PhD Active PENICILLIN V POTASSIUM 500 MG TABS 1 pill by mouth three times daily PENICILLIN V POTASSIUM 79547473724 No Longer Active Alina Castaneda MD PhD Active LATUDA 80 MG TABS 1 tab by mouth every evening LURASIDONE HCL 88343375388 Active Alina Castaneda MD PhD Active UROXATRAL 10 MG [id number]-GWU Take 1 tablet by mouth daily ALFUZOSIN HCL 31072261318 No Longer Active Alina Castaneda MD PhD Active THIOTHIXENE 5 MG CAPS by mouth twice a day THIOTHIXENE 07706693339 No Longer Active Alina Castaneda MD PhD Active ZYPREXA 7.5 MG TABS 1 at HS OLANZAPINE 14362958291 No Longer Active Alina Castaneda MD PhD Active LEVEMIR 100 UNIT/ML SOLN Take 70 u at 7-8pm INSULIN DETEMIR 26206605474 Active Maliheh Ziglari CLINIC OFFICE MANAGER Active BD INSULIN SYRINGE 28G X 1/2" 1 ML MISC 1 four times per day INSULIN SYRINGE-NEEDLE U-100 43107943151 Active Maliheh Ziglari CLINIC OFFICE MANAGER Active TOLTERODINE TARTRATE 2 MG TABS 1 pill twice daily, for bladder TOLTERODINE TARTRATE 34203760089 Active Alina Castaneda MD PhD Active DETROL LA 4 MG [id number] Take 1 tablet by mouth daily TOLTERODINE TARTRATE 02697384532 No Longer Active Alina Castaneda MD PhD Active HYDROCODONE-ACETAMINOPHEN 5-325 MG TABS 2 tabs by mouth three times daily as needed for pain HYDROCODONE-ACETAMINOPHEN 11414603691 Active Alina Castaneda MD PhD Active TERESE CONTOUR TEST STRP monitor blood sugars 3x/day GLUCOSE BLOOD 21179015233 No Longer Active Alina Castaneda MD PhD Active EQL TRUETEST TEST STRP Test blood sugar TID GLUCOSE BLOOD 85612283289 No Longer Active Alina Castaneda MD PhD Active FLUTICASONE PROPIONATE 50 MCG/ACT SUSP 2 sprays each nostril qDay x 30 days FLUTICASONE PROPIONATE 29103183031 No Longer Active Alina Castaneda MD PhD Active IBUPROFEN 200 MG TABS 1 Q 6 hr. PRN IBUPROFEN 95751609563 No Longer Active Alina Castaneda MD PhD Active NIACIN ER 500 MG CR-TABS 4 qHS (for triglycerides) NIACIN 58821714920 No Longer Active Alina Castaneda MD PhD Active ALFUZOSIN HCL ER 10 MG [id number]-FHU 1 tablet daily ALFUZOSIN HCL 51496142649 Active Vanessa Hickey MD Active CLONAZEPAM 1 MG TABS 1 pill by mouth three times daily CLONAZEPAM 15528927862 Active Alina Castaneda MD PhD Active LOVAZA 1 GM CAPS 4 daily (for triglycerides) ICCPH-2-LDTF ETHYL ESTERS 80078089625 Active Alina Castaneda MD PhD Active SAPHRIS 5 MG SUBL by mouth twice a day ASENAPINE MALEATE 88475507981 No Longer Active Marvel MARROQUIN Active ACETAMINOPHEN 500 MG TABS 2 Q 6 hr. PRN ACETAMINOPHEN 47696811990 No Longer Active Maljohn Mackenzieglari CLINIC OFFICE MANAGER Active ORPHENADRINE CITRATE ER 100 MG [id number] 1 every 12 hr. as needed ORPHENADRINE CITRATE 95585647782 No Longer Active Alina Castaneda MD PhD Active NIACIN CR 500 MG CR-TABS 2 qHS NIACIN 50264776225 No Longer Active Alina Castaneda MD PhD Active AMOXICILLIN 500 MG CAPS 2 po BID x 10 days AMOXICILLIN 40029628531 No Longer Active Alina Castaneda MD PhD Active HYDROCODONE-ACETAMINOPHEN 7.5-325 MG TABS 1 four times a day as needed for pain HYDROCODONE-ACETAMINOPHEN 80873813514 No Longer Active Alina Castaneda MD PhD Active METFORMIN HCL ER 500 MG AG33L-QDB Take three tablets by mouth everyday METFORMIN HCL 73640754813 Active Alina Castaneda MD PhD Active DOXEPIN HCL 10 MG CAPS Take 1 tablet by mouth daily DOXEPIN HCL 88636125190 No Longer Active Salina Ervinford [facility] Active NAVANE 10 MG CAPS 1/2 tablet twice a day THIOTHIXENE No Longer Active Salina Ervinford [facility] Active CYCLOBENZAPRINE HCL 10 MG TABS 1/2 tablet by mouth every 8 hours as needed for muscle spasms CYCLOBENZAPRINE HCL 14615834992 No Longer Active Alina Castaneda MD PhD Active BACTROBAN 2 % CREAM apply to ear and nose twice daily MUPIROCIN CALCIUM 01410848315 No Longer Active Alina Castaneda MD PhD Active HYDROCODONE-ACETAMINOPHEN 5-325 MG TABS take one tablet by mouth every four hours as needed for pain HYDROCODONE-ACETAMINOPHEN 08566864552 No Longer Active Alina Castaneda MD PhD Active ZOLPIDEM TARTRATE 10 MG TABS take at bedtime ZOLPIDEM TARTRATE 90337840876 Active Alina Castaneda MD PhD Active ZYPREXA 5 MG TABS take one tablet by mouth every evening OLANZAPINE 53250326903 No Longer Active Alina Castaneda MD PhD Active ALBUTEROL SULFATE 0.083 % NEBU SOLN one vial per nebulizer TID and PRN cough/ soa ALBUTEROL SULFATE 94927662791 No Longer Active Alina Castaneda MD PhD Active GUAIFENESIN 600 MG VL90T-OFL 1 tablet by mouth twice daily if needed for cough GUAIFENESIN 22781570406 No Longer Active Marvel MENDOZAP Active AZITHROMYCIN 500 MG SOLR 1 po q day AZITHROMYCIN 46258115371 No Longer Active Alina Castaneda MD PhD Active METOPROLOL SUCCINATE 100 MG CX41Z-ECB 1 by mouth daily for blood pressure METOPROLOL SUCCINATE 20833805770 Active Alina Castaneda MD PhD Active PROMETHAZINE-CODEINE 6.25-10 MG/5ML SYRP 1 tsp po q 6 hours prn cough PROMETHAZINE-CODEINE 09876209665 No Longer Active Alina Castaneda MD PhD Active CEFDINIR 300 MG CAPS by mouth twice a day CEFDINIR 42785805199 No Longer Active Alina Castaneda MD PhD Active METFORMIN HCL 500 MG RH87V-CWW Take 3 tablets by mouth everyday METFORMIN HCL 56994339392 No Longer Active Alina Castaneda MD PhD Active LEVEMIR 100 UNIT/ML SOLN 90 units SQ qHS INSULIN DETEMIR 88311654971 No Longer Active Marvel MARROQUIN Active TOPROL XL 100 MG JZ37R-ZSN 1 @ HS METOPROLOL SUCCINATE 93519062252 No Longer Active Marvel MARROQUIN Active ALLOPURINOL 300 MG TABS Take one by mouth daily ALLOPURINOL 85013057471 Active Alina Castaneda MD PhD Active ZYPREXA 10 MG TABS Take one by mouth daily OLANZAPINE 37792124056 No Longer Active Alina Castaneda MD PhD Active NOVOLOG 100 UNIT/ML SOLN 40 units with every meal INSULIN ASPART 79550136054 No Longer Active Alina Castaneda MD PhD Active VERAPAMIL HCL CR 120 MG TAB CR 1 qPM VERAPAMIL HCL 03642581070 No Longer Active Salina Han [facility] Active ZYPREXA 15 MG TABS Take 1 tablet by mouth daily OLANZAPINE 51949012894 No Longer Active Marvel Mackenzieglestela MENDOZAP Active LISINOPRIL 20 MG TABS 1 BID LISINOPRIL 18154362957 Active Alina Castaneda MD PhD Active ALBUTEROL SULFATE (2.5 MG/3ML) 0.083% NEBU 1 neb tid and prn cough ALBUTEROL SULFATE 37093837783 No Longer Active Alina Castaneda MD PhD Active FLUVOXAMINE MALEATE 100 MG TABS Take one (1) tablet by mouth am, 1/2 at noon, 1 pm FLUVOXAMINE MALEATE 03882215429 Active Alina Castaneda MD PhD Active TRAVATAN Z 0.004 % SOLN 1 gtt each eye daily TRAVOPROST 58850795978 Active CRYSTAL Suarez Active LANTUS 100 UNIT/ML SOLN 60 units sq q hs INSULIN GLARGINE 90409652559 No Longer Active CRYSTAL Suarez Active ALBUTEROL SULFATE (2.5 MG/3ML) 0.083% NEBU 1 neb tid and prn cough ALBUTEROL SULFATE (2.5 MG/3ML) 0.083% NEBU 629704 ALBUTEROL SULFATE Inactive ZYPREXA 15 MG TABS Take 1 tablet by mouth daily ZYPREXA 15 MG TABS 063002 OLANZAPINE Inactive VERAPAMIL HCL CR 120 MG TAB CR 1 qPM VERAPAMIL HCL CR 120 MG TAB CR VERAPAMIL HCL Inactive ZYPREXA 10 MG TABS Take one by mouth daily ZYPREXA 10 MG TABS 277733 OLANZAPINE Inactive TOPROL XL 100 MG [id number]-EIK 1 @ HS TOPROL XL 100 MG KR13M-XPC METOPROLOL SUCCINATE Inactive LEVEMIR 100 UNIT/ML SOLN 90 units SQ qHS LEVEMIR 100 UNIT/ML SOLN INSULIN DETEMIR Inactive PROMETHAZINE-CODEINE 6.25-10 MG/5ML SYRP 1 tsp po q 6 hours prn cough PROMETHAZINE-CODEINE 6.25-10 MG/5ML SYRP 913960 PROMETHAZINE- CODEINE Inactive GUAIFENESIN 600 MG SO68E-XVX 1 tablet by mouth twice daily if needed for cough GUAIFENESIN 600 MG JF68R-EOV GUAIFENESIN Inactive ALBUTEROL SULFATE 0.083 % NEBU SOLN one vial per nebulizer TID and PRN cough/ soa ALBUTEROL SULFATE 0.083 % NEBU SOLN 341523 ALBUTEROL SULFATE Inactive ZYPREXA 5 MG TABS take one tablet by mouth every evening ZYPREXA 5 MG TABS 841393 OLANZAPINE Inactive HYDROCODONE-ACETAMINOPHEN 5-325 MG TABS take one tablet by mouth every four hours as needed for pain HYDROCODONE-ACETAMINOPHEN 5-325 MG TABS 803362 HYDROCODONE-ACETAMINOPHEN Inactive BACTROBAN 2 % CREAM apply to ear and nose twice daily BACTROBAN 2 % CREAM 665744 MUPIROCIN CALCIUM Inactive CYCLOBENZAPRINE HCL 10 MG TABS 1/2 tablet by mouth every 8 hours as needed for muscle spasms CYCLOBENZAPRINE HCL 10 MG TABS 845185 CYCLOBENZAPRINE HCL Inactive NAVANE 10 MG CAPS 1/2 tablet twice a day NAVANE 10 MG CAPS THIOTHIXENE Inactive DOXEPIN HCL 10 MG CAPS Take 1 tablet by mouth daily DOXEPIN HCL 10 MG CAPS 4166581 DOXEPIN HCL Inactive HYDROCODONE-ACETAMINOPHEN 7.5-325 MG TABS 1 four times a day as needed for pain HYDROCODONE-ACETAMINOPHEN 7.5-325 MG TABS 615249 HYDROCODONE-ACETAMINOPHEN Inactive NIACIN CR 500 MG CR-TABS 2 qHS NIACIN CR 500 MG CR- TABS NIACIN Inactive ORPHENADRINE CITRATE ER 100 MG [id number] 1 every 12 hr. as needed ORPHENADRINE CITRATE ER 100 MG LQ32T-RYO ORPHENADRINE CITRATE Inactive ACETAMINOPHEN 500 MG TABS 2 Q 6 hr. PRN ACETAMINOPHEN 500 MG TABS 427867 ACETAMINOPHEN Inactive SAPHRIS 5 MG SUBL by mouth twice a day SAPHRIS 5 MG SUBL ASENAPINE MALEATE Inactive NIACIN ER 500 MG CR-TABS 4 qHS (for triglycerides) NIACIN ER 500 MG CR-TABS NIACIN Inactive IBUPROFEN 200 MG TABS 1 Q 6 hr. PRN IBUPROFEN 200 MG TABS 704043 IBUPROFEN Inactive FLUTICASONE PROPIONATE 50 MCG/ACT SUSP 2 sprays each nostril qDay x 30 days FLUTICASONE PROPIONATE 50 MCG/ACT SUSP 392653 FLUTICASONE PROPIONATE Inactive EQL TRUETEST TEST STRP Test blood sugar TID EQL TRUETEST TEST STRP GLUCOSE BLOOD Inactive TERESE CONTOUR TEST STRP monitor blood sugars 3x/day TERESE CONTOUR TEST STRP GLUCOSE BLOOD Inactive DETROL LA 4 MG [id number]-IZD Take 1 tablet by mouth daily DETROL LA 4 MG [id number]-VCQ TOLTERODINE TARTRATE Inactive ZYPREXA 7.5 MG TABS 1 at HS ZYPREXA 7.5 MG TABS 371076 OLANZAPINE Inactive THIOTHIXENE 5 MG CAPS by mouth twice a day THIOTHIXENE 5 MG CAPS 696454 THIOTHIXENE Inactive UROXATRAL 10 MG VM59O-GHJ Take 1 tablet by mouth daily UROXATRAL 10 MG VJ80U-OBT ALFUZOSIN HCL Inactive ACYCLOVIR 400 MG ORAL TABS 1 pill three times daily x 5 days, for cold sore outbreak ACYCLOVIR 400 MG ORAL TABS 357891 ACYCLOVIR Inactive TRUETEST TEST STRP check sugars 4x/day TRUETEST TEST STRP GLUCOSE BLOOD Inactive HUMALOG 100 UNIT/ML SOLN Take 20 units with breakfast, 10u with lunch and suppetr. HUMALOG 100 UNIT/ML SOLN INSULIN LISPRO ( HUMAN) Inactive CYCLOBENZAPRINE HCL 10 MG TABS 1 tablet by mouth three times daily, scheduled CYCLOBENZAPRINE HCL 10 MG TABS 494446 CYCLOBENZAPRINE HCL Inactive ACCU-CHEK ROSA INVITR STRP use strips with device to check blood sugars 3 times daily ACCU-CHEK ROSA INVITR STRP GLUCOSE BLOOD Inactive ACCU-CHEK ROSA UZMA Use device to check blood sugars ACCU-CHEK ROSA UZMA BLOOD GLUCOSE MONITORING SUPPL Inactive CEFDINIR 300 MG CAPS by mouth twice a day CEFDINIR 300 MG CAPS 578509 CEFDINIR Inactive AZITHROMYCIN 500 MG SOLR 1 po q day AZITHROMYCIN 500 MG SOLR 192115 AZITHROMYCIN Inactive AMOXICILLIN 500 MG CAPS 2 po BID x 10 days AMOXICILLIN 500 MG CAPS 804537 AMOXICILLIN Inactive PENICILLIN V POTASSIUM 500 MG TABS 1 pill by mouth three times daily PENICILLIN V POTASSIUM 500 MG TABS 526825 PENICILLIN V POTASSIUM Inactive Immunizations Vaccine Administration [...] Fluvirin, Fluarix, Agriflu(>=18 yo)) Fluzone (>3 yrs.) [PMZ374] Influenza, seasonal, injectable pneumococcal immunization administered Pneumovax [...] HGBA1C - Chemistry sodium, serum 130 mmol/L 216-846 0882/06/09 potassium, serum 4.0 mmol/L 3.5-5.2 chloride, serum 92 mmol/L 98-107 carbon dioxide, venous blood 22.1 mmol/L 21.0-32.0 blood glucose 60 mg/dL 65-110 calcium, serum 9.5 mg/dL 8.5-10.1 urea nitrogen, blood 14 mg/dL 7-18 creatinine, serum 1.30 mg/dL 0.60-1.30 hemoglobin A1C, blood, as % of total hemoglobin 6.0 % 4.3-6.0 sodium, serum 131 mmol/L 172-231 1831/12/30 potassium, serum 5.0 mmol/L 3.5-5.2 chloride, serum [...] 6.0 mg/dL 2.6-7.2 sodium, serum 130 mmol/L 492-097 7879/05/01 potassium, serum 5.2 mmol/L 3.5-5.2 chloride, serum [...] 0.40 mg/dL 0.00-1.00 cholesterol, serum 151 mg/dL 047-348 1079/05/01 triglyceride, serum, fasting 356 mg/dL 30-200 HDL [...] Panel - Chemistry sodium, serum 127 mmol/L 387-322 3445/10/27 potassium, serum 4.1 mmol/L 3.5-5.2 chloride, serum [...] mg/dL Encounters Code Encounter Date Provider Facility CPT-18086 Level 3 Est. Patient 00:28:25 CDT Alina Castaneda MD PhD [facility] CPT-90385 Level 2 Est. Patient 12:52:14 CDT Alina Castaneda MD PhD [facility] CPT-54630 Level 3 Est. Patient 11:51:18 HOUSE DIRECTOR Alina Castaneda MD PhD [facility] CPT-39891 Level 3 Est. Patient 10:09:22 HOUSE DIRECTOR Alina Castaneda MD PhD [facility] CPT-18495 Level 3 Est. Patient 14:36:26 HOUSE DIRECTOR Marvel MARROQUIN [facility] CPT-61814 Level 3 Est. Patient 13:34:47 HOUSE DIRECTOR Alina Castaneda MD PhD [facility] CPT-49683 Level 3 Est. Patient 19:52:08 HOUSE DIRECTOR Alina Castaneda MD [facility]-12634 Level 3 Est. Patient 10:01:51 HOUSE DIRECTOR Brookslashondanivia Araceli [facility]-81057 Level 3 Est. Patient 21:54:06 CDT Vanessa Hickey MD [facility]-48790 Level 3 Est. Patient 08:54:46 CDT Alina Castaneda MD [facility]-78453 Level 3 Est. Patient 09:32:11 CDT Marvel Charles [facility]-83218 Level 3 Est. Patient 12:02:49 CDT Alina Castaneda MD [facility]-74063 Level 3 Est. Patient 19:17:33 CDT Alina Castaneda MD [facility]-55069 Level 3 Est. Patient 13:19:10 CDT Marvel Charles [facility]-96122 Level 3 Est. Patient 08:20:05 CDT Alina Castaneda MD [facility]-02754 Level 3 Est. Patient 15:17:18 CDT Alina Castaneda MD [facility]-05368 Level 3 Est. Patient 14:25:36 HOUSE DIRECTOR Brookslashondanivia Araceli [facility] CPT-65063 Level 3 Est. Patient 10:09:15 HOUSE DIRECTOR Zainnivia Araceli [facility]-80206 Level 3 Est. Patient 21:28:43 CDT Alina Castaneda MD [facility]-08749 Level 3 Est. Patient 15:20:11 CDT Marvel Charles [facility]-14483 Level 4 Est. Patient 19:08:12 CDT Alina Castaneda MD [facility]-01874 Level 3 Est. Patient 15:06:39 CDT Marvel Charles [facility]-81858 Level 4 Est. Patient 17:48:15 CDT Alina Castaneda MD [facility]-00447 Level 3 Est. Patient 14:53:49 CDT Alina Castaneda MD [facility]-25009 Level 3 Est. Patient 09:35:16 CDT Alina Castaneda MD [facility]-40862 Level 3 Est. Patient 12:23:22 CDT Alina Castaneda MD [facility]-76289 Level 3 Est. Patient 16:19:15 CDT Alina Castaneda MD [facility]-05086 Level 3 Est. Patient 21:39:56 HOUSE DIRECTOR Alina Castaneda MD [facility]-78095 Level 4 Est. Patient 14:12:56 HOUSE DIRECTOR Alina Castaneda MD [facility]-08522 Level 2 Est. Patient 15:34:57 HOUSE DIRECTOR Alina Castaneda MD [facility]-49518 Level 3 Est. Patient 12:17:04 HOUSE DIRECTOR Alina Castaneda MD [facility]-02210 Level 3 Est. Patient 09:18:18 HOUSE DIRECTOR Marvel Charles [facility]-77989 Level 2 Est. Patient 21:50:24 CDT Alina Castaneda MD [facility]-50442 Level 3 Est. Patient 09:17:28 CDT Marvel Charles [facility]77137 Level 4 Est. Patient 18:54:02 CDT Alina Castaneda MD [facility] CPT-65126 Level 3 Est. Patient 10:47:10 CDT Alina Castaneda MD [facility] CPT-49834 Level 3 Est. Patient 09:22:20 CDT Marvel Thurstonestela [facility] CPT-67879 Level 3 Est. Patient 16:39:43 CDT Marvel Araceli [facility] CPT-25884 Level 3 Est. Patient 16:05:16 CDT Alina Castaneda MD [facility] CPT-46877 Level 3 Est. Patient 00:29:15 CDT Alina Castaneda MD [facility] CPT-29758 Level 3 Est. Patient 10:49:22 HOUSE DIRECTOR Brookslashondanivia Araceli [facility] CPT-12159 Level 3 Est. Patient 21:30:19 HOUSE DIRECTOR Alina Castaneda MD [facility] CPT-52455 Level 4 Est. Patient 17:04:11 [facility] Level 3 Est. Patient 15:34:11 HOUSE DIRECTOR Marvel Araceli [facility] CPT-05076 Level 2 Est. Patient 12:51:58 HOUSE DIRECTOR Alina Castaneda MD PhD [facility] CPT-51429 Level 3 Est. Patient 13:20:01 HOUSE DIRECTOR Alina Castaneda MD [facility] CPT-92412 Level 3 Est. Patient 09:23:35 CDT Alina Castaneda MD [facility] Procedures Code Procedure Name Date Entry Date Standard Description CPT-72570 Bladder Scan 21:54:06 CDT CPT-G0008 Administration of Influenza Virus Vaccine 13:05:26 CDT CPT-51367 Fluzone Quadrivalent Intramuscular Suspension 0.5 ML 13: 05:26 CDT CPT-80976 Administration single or combination vaccine inc oral 11 :49:51 CDT CPT-94228 Pneumovax 11:49:51 CDT CPT-73305 Ribs unilateral 2V 12:37:22 HOUSE DIRECTOR CPT-75869 Chest 2V Frontal and Lat 17:15:26 CDT CPT-48934 Abx/Therapy Injection 18:54:02 CDT CPT-J0696 Rocephin 1000 mg (Ceftriaxone) 16:00:32 CDT CPT-43762 Chest 2V Frontal and Lat 15:26:45 CDT CPT-14943 Chest 2V Frontal and Lat 10:23:27 CDT CPT-56970 Venipuncture Draw Fee 10:11:00 CDT CPT-38978 Administration single or combination vaccine inc oral 11 :56:38 CDT CPT-52494 Influenza split virus > age 3 11:56:38 CDT CPT-81222 Venipuncture Draw Fee 08:49:54 HOUSE DIRECTOR CPT-94281 EKG Trac and Interp 17:54:19 HOUSE DIRECTOR
--- OUTSIDE RECORDS SUMMARY | 2018-07-02 19:31 | XMS REPORT | Clinical Summary ---
[...] 10u lunch and supper INSULIN LISPRO (HUMAN) [id number] Active Marvel MENDOZAP Active LATUDA 120 MG ORAL TABS 1 pill by mouth nightly LURASIDONE HCL 41273190370 Active Alina Castaneda MD PhD Active COLACE 100 MG CAPS 1 pill by mouth twice daily, for constipation DOCUSATE SODIUM 62556723865 Active Alina Castaneda MD PhD Active TRUETEST TEST STRP check blood sugars 3x/day GLUCOSE BLOOD 99078955286 Active Mallashondaeh 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 BRAKE REPAIRER Active ACCU-CHEK ROSA UZMA Use device to check blood sugars BLOOD GLUCOSE MONITORING SUPPL 53299480059 No Longer Active Maliheh Ziglari BRAKE REPAIRER Active ACCU-CHEK ROSA INVITR STRP use strips with device to check blood sugars 3 times daily GLUCOSE BLOOD 31344303301 No Longer Active Mallashondaeh 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 BRAKE REPAIRER Active VERAPAMIL HCL ER 180 MG ORAL CR-TABS 1 pill by mouth twice daily, for migraine prevention VERAPAMIL HCL 93441312739 Active Alina Castaneda MD PhD Active CYCLOBENZAPRINE HCL 10 MG TABS 1 tablet by mouth three times daily, scheduled CYCLOBENZAPRINE HCL 80376363046 No Longer Active Alina Castaneda MD PhD Active HUMALOG 100 UNIT/ML SOLN Take 20 units with breakfast, 10u with lunch and suppetr. INSULIN LISPRO (HUMAN) 76691348472 No Longer Active Alina Castaneda MD PhD Active TRUETEST TEST STRP check sugars 4x/day GLUCOSE BLOOD 43379007006 No Longer Active Alina Castaneda MD PhD Active MORPHINE SULFATE 30 MG TABS 1 pill by mouth twice daily, for pain MORPHINE SULFATE 79220235331 Active Mason Loredo MD Active ACYCLOVIR 400 MG ORAL TABS 1 pill three times daily x 5 days, for cold sore outbreak ACYCLOVIR 30539020322 No Longer Active Alina Castaneda MD PhD Active PENICILLIN V POTASSIUM 500 MG TABS 1 pill by mouth three times daily PENICILLIN V POTASSIUM 71370793990 No Longer Active Alina Castaneda MD PhD Active UROXATRAL 10 MG [id number] Take 1 tablet by mouth daily ALFUZOSIN HCL 46476137531 No Longer Active Alina Castaneda MD PhD Active THIOTHIXENE 5 MG CAPS by mouth twice a day THIOTHIXENE 12908265946 No Longer Active Alina Castaneda MD PhD Active ZYPREXA 7.5 MG TABS 1 at HS OLANZAPINE 74461077008 No Longer Active Alina Castaneda MD PhD Active LEVEMIR 100 UNIT/ML SOLN Take 70 u at 7-8pm INSULIN DETEMIR 46167750507 Active Marvel Mackenzieglari BRAKE REPAIRER Active BD INSULIN SYRINGE 28G X 1/2" 1 ML MISC 1 four times per day INSULIN SYRINGE-NEEDLE U-100 03400850760 Active Marvel Mackenzieglari BRAKE REPAIRER Active TOLTERODINE TARTRATE 2 MG TABS 1 pill twice daily, for bladder TOLTERODINE TARTRATE 95027594292 Active Alina Castaneda MD PhD Active DETROL LA 4 MG [id number] Take 1 tablet by mouth daily TOLTERODINE TARTRATE 16359021336 No Longer Active Alina Castaneda MD PhD Active HYDROCODONE-ACETAMINOPHEN 5-325 MG TABS 2 tabs by mouth three times daily as needed for pain HYDROCODONE-ACETAMINOPHEN 34878986811 Active Alina Castaneda MD PhD Active TERESE CONTOUR TEST STRP monitor blood sugars 3x/day GLUCOSE BLOOD 81356870142 No Longer Active Alina Castaneda MD PhD Active EQL TRUETEST TEST STRP Test blood sugar TID GLUCOSE BLOOD 27456846953 No Longer Active Alina Castaneda MD PhD Active FLUTICASONE PROPIONATE 50 MCG/ACT SUSP 2 sprays each nostril qDay x 30 days FLUTICASONE PROPIONATE 67283569586 No Longer Active Alina Castaneda MD PhD Active IBUPROFEN 200 MG TABS 1 Q 6 hr. PRN IBUPROFEN 16073309885 No Longer Active Alina Castaneda MD PhD Active NIACIN ER 500 MG CR-TABS 4 qHS (for triglycerides) NIACIN 97322981647 No Longer Active Alina Castaneda MD PhD Active ALFUZOSIN HCL ER 10 MG [id number] 1 tablet daily ALFUZOSIN HCL 78120935958 Active Vanessa Hickey MD Active CLONAZEPAM 1 MG TABS 1 pill by mouth three times daily CLONAZEPAM 95697671020 Active Alina Castaneda MD PhD Active LOVAZA 1 GM CAPS 4 daily (for triglycerides) [id number]-6-[id number] ETHYL ESTERS 32353349363 Active Mao Rodriguez MD Active SAPHRIS 5 MG SUBL by mouth twice a day ASENAPINE MALEATE 56739684566 No Longer Active Maljohn Ziglari BRAKE REPAIRER Active ACETAMINOPHEN 500 MG TABS 2 Q 6 hr. PRN ACETAMINOPHEN 79975316022 No Longer Active Maliheh Ziglari BRAKE REPAIRER Active ORPHENADRINE CITRATE ER 100 MG [id number] 1 every 12 hr. as needed ORPHENADRINE CITRATE 13857173799 No Longer Active Alina Castaneda MD PhD Active NIACIN CR 500 MG CR-TABS 2 qHS NIACIN 94500508142 No Longer Active Alina Castaneda MD PhD Active AMOXICILLIN 500 MG CAPS 2 po BID x 10 days AMOXICILLIN 25076636007 No Longer Active Alina Castaneda MD PhD Active HYDROCODONE-ACETAMINOPHEN 7.5-325 MG TABS 1 four times a day as needed for pain HYDROCODONE-ACETAMINOPHEN 67026985310 No Longer Active Alina Castaneda MD PhD Active METFORMIN HCL ER 500 MG [id number]-JGE Take three tablets by mouth everyday METFORMIN HCL 72988455306 Active Marvel Charles BRAKE REPAIRER Active DOXEPIN HCL 10 MG CAPS Take 1 tablet by mouth daily DOXEPIN HCL 37174832749 No Longer Active Salina Han [facility] Active NAVANE 10 MG CAPS 1/2 tablet twice a day THIOTHIXENE No Longer Active Salina Han [facility] Active CYCLOBENZAPRINE HCL 10 MG TABS 1/2 tablet by mouth every 8 hours as needed for muscle spasms CYCLOBENZAPRINE HCL 61928258748 No Longer Active Alina Castaneda MD PhD Active BACTROBAN 2 % CREAM apply to ear and nose twice daily MUPIROCIN CALCIUM 38410141449 No Longer Active Alina Castaneda MD PhD Active HYDROCODONE-ACETAMINOPHEN 5-325 MG TABS take one tablet by mouth every four hours as needed for pain HYDROCODONE-ACETAMINOPHEN 95229223890 No Longer Active Alina Castaneda MD PhD Active ZOLPIDEM TARTRATE 10 MG TABS take at bedtime ZOLPIDEM TARTRATE 38032063038 Active Alina Castaneda MD PhD Active ZYPREXA 5 MG TABS take one tablet by mouth every evening OLANZAPINE 50121109308 No Longer Active Alina Castaneda MD PhD Active ALBUTEROL SULFATE 0.083 % NEBU SOLN one vial per nebulizer TID and PRN cough/ soa ALBUTEROL SULFATE 89915149400 No Longer Active Alina Castaneda MD PhD Active GUAIFENESIN 600 MG [id number] 1 tablet by mouth twice daily if needed for cough GUAIFENESIN 21387411407 No Longer Active Marvel MARROQUIN Active AZITHROMYCIN 500 MG SOLR 1 po q day AZITHROMYCIN 73396390967 No Longer Active Alina Castaneda MD PhD Active METOPROLOL SUCCINATE 100 MG [id number] 1 by mouth daily for blood pressure METOPROLOL SUCCINATE 51271185545 Active Alina Castaneda MD PhD Active PROMETHAZINE-CODEINE 6.25-10 MG/5ML SYRP 1 tsp po q 6 hours prn cough PROMETHAZINE-CODEINE 89485908071 No Longer Active Alina Castaneda MD PhD Active CEFDINIR 300 MG CAPS by mouth twice a day CEFDINIR 59969222411 No Longer Active Alina Castaneda MD PhD Active METFORMIN HCL 500 MG HD25R-BAP Take 3 tablets by mouth everyday METFORMIN HCL 63282534702 No Longer Active Alina Castaneda MD PhD Active LEVEMIR 100 UNIT/ML SOLN 90 units SQ qHS INSULIN DETEMIR 75051250505 No Longer Active Marvel MARROQUIN Active TOPROL XL 100 MG [id number]-[id number] 1 @ HS METOPROLOL SUCCINATE 38843230609 No Longer Active Marvel MARROQUIN Active ALLOPURINOL 300 MG TABS Take one by mouth daily ALLOPURINOL 95849427938 Active Alina Castaneda MD PhD Active ZYPREXA 10 MG TABS Take one by mouth daily OLANZAPINE 21905925157 No Longer Active Alina Castaneda MD PhD Active NOVOLOG 100 UNIT/ML SOLN 40 units with every meal INSULIN ASPART 91024102654 No Longer Active Alina Castaneda MD PhD Active VERAPAMIL HCL CR 120 MG TAB CR 1 qPM VERAPAMIL HCL 21813239307 No Longer Active Salina Han RMA Active ZYPREXA 15 MG TABS Take 1 tablet by mouth daily OLANZAPINE 73863359120 No Longer Active Marvel Mackenzieanca MARROQUIN Active LISINOPRIL 20 MG TABS 1 BID LISINOPRIL 70096810947 Active Alina Castaneda MD PhD Active ALBUTEROL SULFATE (2.5 MG/3ML) 0.083% NEBU 1 neb tid and prn cough ALBUTEROL SULFATE 69565956537 No Longer Active Alina Castaneda MD PhD Active FLUVOXAMINE MALEATE 100 MG TABS Take one (1) tablet by mouth am, 1/2 at noon, 1 pm FLUVOXAMINE MALEATE 47769329715 Active Alina Castaneda MD PhD Active TRAVATAN Z 0.004 % SOLN 1 gtt each eye daily TRAVOPROST 70282216713 Active CRYSTAL Suarez Active LANTUS 100 UNIT/ML SOLN 60 units sq q hs INSULIN GLARGINE 67728125915 No Longer Active CRYSTAL Suarez Active ALBUTEROL SULFATE (2.5 MG/3ML) 0.083% NEBU 1 neb tid and prn cough ALBUTEROL SULFATE (2.5 MG/3ML) 0.083% NEBU 846271 ALBUTEROL SULFATE Inactive ZYPREXA 15 MG TABS Take 1 tablet by mouth daily ZYPREXA 15 MG TABS 445959 OLANZAPINE Inactive VERAPAMIL HCL CR 120 MG TAB CR 1 qPM VERAPAMIL HCL CR 120 MG TAB CR VERAPAMIL HCL Inactive ZYPREXA 10 MG TABS Take one by mouth daily ZYPREXA 10 MG TABS 970140 OLANZAPINE Inactive TOPROL XL 100 MG [id number] 1 @ HS TOPROL XL 100 MG [id number] METOPROLOL SUCCINATE Inactive LEVEMIR 100 UNIT/ML SOLN 90 units SQ qHS LEVEMIR 100 UNIT/ML SOLN INSULIN DETEMIR Inactive PROMETHAZINE-CODEINE 6.25-10 MG/5ML SYRP 1 tsp po q 6 hours prn cough PROMETHAZINE-CODEINE 6.25-10 MG/5ML SYRP 163808 PROMETHAZINE- CODEINE Inactive GUAIFENESIN 600 MG [id number]-EBE 1 tablet by mouth twice daily if needed for cough GUAIFENESIN 600 MG [id number]-LVE GUAIFENESIN Inactive ALBUTEROL SULFATE 0.083 % NEBU SOLN one vial per nebulizer TID and PRN cough/ soa ALBUTEROL SULFATE 0.083 % NEBU SOLN 975311 ALBUTEROL SULFATE Inactive ZYPREXA 5 MG TABS take one tablet by mouth every evening ZYPREXA 5 MG TABS 577318 OLANZAPINE Inactive HYDROCODONE-ACETAMINOPHEN 5-325 MG TABS take one tablet by mouth every four hours as needed for pain HYDROCODONE-ACETAMINOPHEN 5-325 MG TABS 952674 HYDROCODONE-ACETAMINOPHEN Inactive BACTROBAN 2 % CREAM apply to ear and nose twice daily BACTROBAN 2 % CREAM 618242 MUPIROCIN CALCIUM Inactive CYCLOBENZAPRINE HCL 10 MG TABS 1/2 tablet by mouth every 8 hours as needed for muscle spasms CYCLOBENZAPRINE HCL 10 MG TABS 372404 CYCLOBENZAPRINE HCL Inactive NAVANE 10 MG CAPS 1/2 tablet twice a day NAVANE 10 MG CAPS THIOTHIXENE Inactive DOXEPIN HCL 10 MG CAPS Take 1 tablet by mouth daily DOXEPIN HCL 10 MG CAPS 0554363 DOXEPIN HCL Inactive HYDROCODONE-ACETAMINOPHEN 7.5-325 MG TABS 1 four times a day as needed for pain HYDROCODONE-ACETAMINOPHEN 7.5-325 MG TABS 888257 HYDROCODONE-ACETAMINOPHEN Inactive NIACIN CR 500 MG CR-TABS 2 qHS NIACIN CR 500 MG CR- TABS NIACIN Inactive ORPHENADRINE CITRATE ER 100 MG [id number] 1 every 12 hr. as needed ORPHENADRINE CITRATE ER 100 MG [id number]-AHO ORPHENADRINE CITRATE Inactive ACETAMINOPHEN 500 MG TABS 2 Q 6 hr. PRN ACETAMINOPHEN 500 MG TABS 273364 ACETAMINOPHEN Inactive SAPHRIS 5 MG SUBL by mouth twice a day SAPHRIS 5 MG SUBL ASENAPINE MALEATE Inactive NIACIN ER 500 MG CR-TABS 4 qHS (for triglycerides) NIACIN ER 500 MG CR-TABS NIACIN Inactive IBUPROFEN 200 MG TABS 1 Q 6 hr. PRN IBUPROFEN 200 MG TABS 768205 IBUPROFEN Inactive FLUTICASONE PROPIONATE 50 MCG/ACT SUSP 2 sprays each nostril qDay x 30 days FLUTICASONE PROPIONATE 50 MCG/ACT SUSP 502919 FLUTICASONE PROPIONATE Inactive EQL TRUETEST TEST STRP Test blood sugar TID EQL TRUETEST TEST STRP GLUCOSE BLOOD Inactive TERESE CONTOUR TEST STRP monitor blood sugars 3x/day TERESE CONTOUR TEST STRP GLUCOSE BLOOD Inactive DETROL LA 4 MG [id number] Take 1 tablet by mouth daily DETROL LA 4 MG [id number]-BPP TOLTERODINE TARTRATE Inactive ZYPREXA 7.5 MG TABS 1 at HS ZYPREXA 7.5 MG TABS 757578 OLANZAPINE Inactive THIOTHIXENE 5 MG CAPS by mouth twice a day THIOTHIXENE 5 MG CAPS 451774 THIOTHIXENE Inactive UROXATRAL 10 MG [id number] Take 1 tablet by mouth daily UROXATRAL 10 MG PH28M-MUF ALFUZOSIN HCL Inactive ACYCLOVIR 400 MG ORAL TABS 1 pill three times daily x 5 days, for cold sore outbreak ACYCLOVIR 400 MG ORAL TABS 243235 ACYCLOVIR Inactive TRUETEST TEST STRP check sugars 4x/day TRUETEST TEST STRP GLUCOSE BLOOD Inactive HUMALOG 100 UNIT/ML SOLN Take 20 units with breakfast, 10u with lunch and suppetr. HUMALOG 100 UNIT/ML SOLN INSULIN LISPRO ( HUMAN) Inactive CYCLOBENZAPRINE HCL 10 MG TABS 1 tablet by mouth three times daily, scheduled CYCLOBENZAPRINE HCL 10 MG TABS 201846 CYCLOBENZAPRINE HCL Inactive ACCU-CHEK ROSA INVITR STRP use strips with device to check blood sugars 3 times daily ACCU-CHEK ROSA INVITR STRP GLUCOSE BLOOD Inactive ACCU-CHEK ROSA UZMA Use device to check blood sugars ACCU-CHEK ROSA UZMA BLOOD GLUCOSE MONITORING SUPPL Inactive CEFDINIR 300 MG CAPS by mouth twice a day CEFDINIR 300 MG CAPS 558679 CEFDINIR Inactive AZITHROMYCIN 500 MG SOLR 1 po q day AZITHROMYCIN 500 MG SOLR 100827 AZITHROMYCIN Inactive AMOXICILLIN 500 MG CAPS 2 po BID x 10 days AMOXICILLIN 500 MG CAPS 764351 AMOXICILLIN Inactive PENICILLIN V POTASSIUM 500 MG TABS 1 pill by mouth three times daily PENICILLIN V POTASSIUM 500 MG TABS 689878 PENICILLIN V POTASSIUM Inactive Immunizations Vaccine Administration [...] Fluvirin, Fluarix, Agriflu(>=18 yo)) Fluzone (>3 yrs.) [[id number]] Influenza, seasonal, injectable pneumococcal immunization administered Pneumovax [...] blood pressure, diastolic, sitting 70 mm[Hg] BP garica blood pressure, diastolic, standing 73 mm[Hg] BP [...] HGBA1C - Chemistry sodium, serum 130 mmol/L 295-067 0651/06/09 potassium, serum 4.0 mmol/L 3.5-5.2 chloride, serum 92 mmol/L 98-107 carbon dioxide, venous blood 22.1 mmol/L 21.0-32.0 blood glucose 60 mg/dL 65-110 calcium, serum 9.5 mg/dL 8.5-10.1 urea nitrogen, blood 14 mg/dL 7-18 creatinine, serum 1.30 mg/dL 0.60-1.30 hemoglobin A1C, blood, as % of total hemoglobin 6.0 % 4.3-6.0 sodium, serum 131 mmol/L 990-842 8225/12/30 potassium, serum 5.0 mmol/L 3.5-5.2 chloride, serum 95 mmol/L 98-107 carbon dioxide, venous blood 26.7 mmol/L 21.0-32.0 blood glucose 112 mg/dL 65-110 calcium, serum 9.2 mg/dL 8.5-10.1 urea nitrogen, blood 12 mg/dL 7-18 creatinine, serum 1.10 mg/dL 0.60-1.30 hemoglobin A1C, blood, as % of total hemoglobin 5.8 % 4.3-6.0 Lab Report: Basic Metabolic Panel, HGBA1C, MICROALBUMIN - Chemistry sodium, serum 137 mmol/L 137-873 7876/05/19 potassium, serum 5.2 mmol/L 3.5-5.2 chloride, serum [...] Panel - Chemistry sodium, serum 127 mmol/L 020-130 0928/10/27 potassium, serum 4.1 mmol/L 3.5-5.2 chloride, serum [...] mg/dL Encounters Code Encounter Date Provider Facility CPT-86988 Level 3 Est. Patient 09:26:40 CDT Marvel MARROQUIN [facility] CPT-29018 Level 3 Est. Patient 12:36:43 CDT Vanessa Hickey MD [facility] CPT-38169 Level 3 Est. Patient 12:57:49 CDT Vanessa Hickey MD [facility] CPT-22089 Level 3 Est. Patient 00:28:25 CDT Alina Castaneda MD PhD [facility] CPT-92404 Level 2 Est. Patient 12:52:14 CDT Alina Castaneda MD [facility]-87478 Level 3 Est. Patient 11:51:18 STAVE GRADER Alina Castaneda MD [facility]-74589 Level 3 Est. Patient 10:09:22 STAVE GRADER Alina Castaneda MD [facility]-58284 Level 3 Est. Patient 14:36:26 STAVE GRADER Marvel Charles [facility]-38141 Level 3 Est. Patient 13:34:47 STAVE GRADER Alina Castaneda MD [facility] [place]-03053 Level 3 Est. Patient 19:52:08 STAVE GRADER Alina Castaneda MD [facility]-92995 Level 3 Est. Patient 10:01:51 [facility]-24166 Level 3 Est. Patient 21:54:06 CDT Vanessa Hickey MD [facility]-77196 Level 3 Est. Patient 08:54:46 CDT Alina Castaneda MD [facility]-22186 Level 3 Est. Patient 09:32:11 CDT Marvel Charles [facility]-94373 Level 3 Est. Patient 12:02:49 CDT Alina Castaneda MD [facility] [place]-24961 Level 3 Est. Patient 19:17:33 CDT Alina Castaneda MD [facility]-13956 Level 3 Est. Patient 13:19:10 CDT Marvel Charles [facility]-07996 Level 3 Est. Patient 08:20:05 CDT Alina Castaneda MD [facility]-83648 Level 3 Est. Patient 15:17:18 CDT Alina Castaneda MD [facility] [place]-37115 Level 3 Est. Patient 14:25:36 STAVE GRADER Marvel Charles [facility] CPT-08230 Level 3 Est. Patient 10:09:15 STAVE GRADER Marvel Charles [facility]-90235 Level 3 Est. Patient 21:28:43 CDT Alina Castaneda MD [facility]-21737 Level 3 Est. Patient 15:20:11 CDT Marvel Charles [facility] CPT-74898 Level 4 Est. Patient 19:08:12 CDT Alina Castaneda MD [facility]-92474 Level 3 Est. Patient 15:06:39 [facility] Est. Patient 17:48:15 CDT Alina Castaneda MD [facility]-28386 Level 3 Est. Patient 14:53:49 CDT Alina Castaneda MD [facility] [place]-87944 Level 3 Est. Patient 09:35:16 CDT Alina Castaneda MD [facility]-58855 Level 3 Est. Patient 12:23:22 CDT Alina Castaneda MD [facility] [place]-54661 Level 3 Est. Patient 16:19:15 CDT Alina Castaneda MD [facility]-73377 Level 3 Est. Patient 21:39:56 STAVE GRADER Alina Castaneda MD [facility] [place]-85587 Level 4 Est. Patient 14:12:56 STAVE GRADER Alina Castaneda MD [facility]-47547 Level 2 Est. Patient 15:34:57 STAVE GRADER Alina Castaneda MD [facility]40168 Level 3 Est. Patient 12:17:04 STAVE GRADER Alina Castaneda MD [facility]-53775 Level 3 Est. Patient 09:18:18 STAVE GRADER Marvel Charles [facility]-99686 Level 2 Est. Patient 21:50:24 CDT Alina Castaneda MD [facility]-52068 Level 3 Est. Patient 09:17:28 CDT Marvel Charles [facility]-74111 Level 4 Est. Patient 18:54:02 CDT Alina Castaneda MD [facility]23667 Level 3 Est. Patient 10:47:10 CDT Alina Castaneda MD [facility]-80087 Level 3 Est. Patient 09:22:20 CDT [place] Araceli [facility]-73363 Level 3 Est. Patient 16:39:43 [facility]-76989 Level 3 Est. Patient 16:05:16 CDT Alina Castaneda MD [facility]-04351 Level 3 Est. Patient 00:29:15 CDT Alina Castaneda MD [facility] [place]-55774 Level 3 Est. Patient 10:49:22 STAVE GRADER [place] Araceli [facility]-10915 Level 3 Est. Patient 21:30:19 STAVE GRADER Alina Castaneda MD [facility]92679 Level 4 Est. Patient 17:04:11 STAVE GRADER Marvel Charles [facility]-08507 Level 3 Est. Patient 15:34:11 STAVE GRADER Marvel [facility] C[facility]-87141 Level 2 Est. Patient 12:51:58 STAVE GRADER Alina Castaneda MD PhD [facility] CPT-78455 Level 3 Est. Patient 13:20:01 STAVE GRADER Alina Castaneda MD PhD [facility] CPT-92783 Level 3 Est. Patient 09:23:35 CDT Alina Castaneda MD PhD [facility] Procedures Code Procedure Name Date Entry Date Standard Description CPT-89135 Bladder Scan 12:36:44 CDT CPT-49500 Bladder Scan 21:54:06 CDT CPT-G0008 Administration of Influenza Virus Vaccine 13:05:26 CDT CPT-20401 Fluzone Quadrivalent Intramuscular Suspension 0.5 ML 13: 05:26 CDT CPT-56181 Administration single or combination vaccine inc oral 11 :49:51 CDT CPT-28161 Pneumovax 11:49:51 CDT CPT-74371 Ribs unilateral 2V 12:37:22 STAVE GRADER CPT-07511 Chest 2V Frontal and Lat 17:15:26 CDT CPT-13371 Abx/Therapy Injection 18:54:02 CDT CPT-J0696 Rocephin 1000 mg (Ceftriaxone) 16:00:32 CDT CPT-01728 Chest 2V Frontal and Lat 15:26:45 CDT CPT-88149 Chest 2V Frontal and Lat 10:23:27 CDT CPT-37124 Venipuncture Draw Fee 10:11:00 CDT CPT-89726 Administration single or combination vaccine inc oral 11 :56:38 CDT CPT-89767 Influenza split virus > age 3 11:56:38 CDT CPT-09954 Venipuncture Draw Fee 08:49:54 STAVE GRADER CPT-04795 EKG Trac and Interp 17:54:19 STAVE GRADER
--- OUTSIDE RECORDS SUMMARY | 2018-07-02 19:33 | XMS REPORT | Clinical Summary ---
Author Author Admin, TERELL Organization [facility] Address Unknown Phone Allergies, Adverse Reactions, Alerts Allergy Name Reaction Description Start Date Severity Status Provider PROZAC Critical Active Alina Mendez ABILIFGreg Critical Active Alina Mendez Conditions or Problems Problem Name Problem Code [...] for malignant neoplasms of prostate Hypoglycemia 251.2 Active Marvel MARROQUIN Hypoglycemia, unspecified WOUND, OPEN, NOSE ICD-873.20 Inactive Alina [...] Status Provider Patient Instruction HUMALOG 100 UNIT/ML SOLN Take 20 units with breakfast, 15u with lunch and suppetr. INSULIN LISPRO (HUMAN) 39307051406 Active Marvel Mackenzieglestela QUARRY SUPERVISOR Active LEVEMIR 100 UNIT/ML SOLN Take 80 u at 7-8pm INSULIN DETEMIR 82111497614 Active Marvel Mackenzieglestela QUARRY SUPERVISOR Active BD INSULIN SYRINGE 28G X 1/2" 1 ML MISC 1 four times per day INSULIN SYRINGE-NEEDLE U-100 89317780945 Active Alina Castaneda MD PhD Active CYCLOBENZAPRINE HCL 10 MG TABS 1 tablet by mouth three times daily, scheduled CYCLOBENZAPRINE HCL 99112519900 Active Alina Castaneda MD PhD Active TOLTERODINE TARTRATE 2 MG TABS 1 pill twice daily, for bladder TOLTERODINE TARTRATE 05422996427 Active Alina Castaneda MD PhD Active DETROL LA 4 MG [id number] Take 1 tablet by mouth daily TOLTERODINE TARTRATE 98002624534 No Longer Active Alina Castaneda MD PhD Active HYDROCODONE-ACETAMINOPHEN 5-325 MG TABS 2 tabs by mouth three times daily as needed for pain HYDROCODONE-ACETAMINOPHEN 48147249608 Active Alina Castaneda MD PhD Active TERESE CONTOUR TEST STRP monitor blood sugars 3x/day GLUCOSE BLOOD 43177223475 No Longer Active Alina Castaneda MD PhD Active EQL TRUETEST TEST STRP Test blood sugar TID GLUCOSE BLOOD 83549862564 No Longer Active Alina Castaneda MD PhD Active FLUTICASONE PROPIONATE 50 MCG/ACT SUSP 2 sprays each nostril qDay x 30 days FLUTICASONE PROPIONATE 93896478603 No Longer Active Alina Castaneda MD PhD Active IBUPROFEN 200 MG TABS 1 Q 6 hr. PRN IBUPROFEN 22938801708 No Longer Active Alina Castaneda MD PhD Active NIACIN ER 500 MG CR-TABS 4 qHS (for triglycerides) NIACIN 47317925780 No Longer Active Alina Castaneda MD PhD Active TRUETEST TEST STRP check sugars 4x/day GLUCOSE BLOOD 82269543485 Active Alina Castaneda MD PhD Active ALFUZOSIN HCL ER 10 MG [id number] 1 tablet daily ALFUZOSIN HCL 13313757971 Active Vanessa Hickey MD Active CLONAZEPAM 1 MG TABS 1 pill by mouth three times daily CLONAZEPAM 49145058709 Active Alina Castaneda MD PhD Active LOVAZA 1 GM CAPS 4 daily (for triglycerides) [id number] ETHYL ESTERS 14352841903 Active Alina Castaneda MD PhD Active SAPHRIS 5 MG SUBL by mouth twice a day ASENAPINE MALEATE 54610757971 No Longer Active Marvel MARROQUIN Active ACETAMINOPHEN 500 MG TABS 2 Q 6 hr. PRN ACETAMINOPHEN 20421191938 No Longer Active Marvel MENDOZAP Active VERAPAMIL HCL ER 120 MG [id number] 1 pill by mouth twice a day, for headache prevention/control VERAPAMIL HCL 35286467446 Active Alina Castaneda MD PhD Active ORPHENADRINE CITRATE ER 100 MG [id number] 1 every 12 hr. as needed ORPHENADRINE CITRATE 32044690683 No Longer Active Alina Castaneda MD PhD Active NIACIN CR 500 MG CR-TABS 2 qHS NIACIN 96489536216 No Longer Active Alina Castaneda MD PhD Active AMOXICILLIN 500 MG CAPS 2 po BID x 10 days AMOXICILLIN 36159813002 No Longer Active Alina Castaneda MD PhD Active ZYPREXA 7.5 MG TABS 1 at HS OLANZAPINE 28900383222 Active Alina Castaneda MD PhD Active THIOTHIXENE 5 MG CAPS by mouth twice a day THIOTHIXENE 70865325986 Active Alina Castaneda MD PhD Active HYDROCODONE-ACETAMINOPHEN 7.5-325 MG TABS 1 four times a day as needed for pain HYDROCODONE-ACETAMINOPHEN 92476207292 No Longer Active Alina Castaneda MD PhD Active METFORMIN HCL ER 500 MG [id number] Take three tablets by mouth everyday METFORMIN HCL 49616905862 Active Marvel MARROQUIN Active DOXEPIN HCL 10 MG CAPS Take 1 tablet by mouth daily DOXEPIN HCL 81212571492 No Longer Active Salina ROJAS Active NAVANE 10 MG CAPS 1/2 tablet twice a day THIOTHIXENE No Longer Active Salina ROBBINSA Active CYCLOBENZAPRINE HCL 10 MG TABS 1/2 tablet by mouth every 8 hours as needed for muscle spasms CYCLOBENZAPRINE HCL 49668726736 No Longer Active Alina Castaneda MD PhD Active BACTROBAN 2 % CREAM apply to ear and nose twice daily MUPIROCIN CALCIUM 86806025761 No Longer Active Alina Castaneda MD PhD Active HYDROCODONE-ACETAMINOPHEN 5-325 MG TABS take one tablet by mouth every four hours as needed for pain HYDROCODONE-ACETAMINOPHEN 58099998866 No Longer Active Alina Castaneda MD PhD Active ZOLPIDEM TARTRATE 10 MG TABS take at bedtime ZOLPIDEM TARTRATE 16160238586 Active Alina Castaneda MD PhD Active ZYPREXA 5 MG TABS take one tablet by mouth every evening OLANZAPINE 81022532628 No Longer Active Alina Castaneda MD PhD Active ALBUTEROL SULFATE 0.083 % NEBU SOLN one vial per nebulizer TID and PRN cough/ soa ALBUTEROL SULFATE 31228791838 No Longer Active Alina Castaneda MD PhD Active GUAIFENESIN 600 MG [id number]-LPC 1 tablet by mouth twice daily if needed for cough GUAIFENESIN 25120703940 No Longer Active Marvel MENDOZAP Active AZITHROMYCIN 500 MG SOLR 1 po q day AZITHROMYCIN 51164111158 No Longer Active Alina Castaneda MD PhD Active METOPROLOL SUCCINATE 100 MG [id number] 1 by mouth daily for blood pressure METOPROLOL SUCCINATE 36081532499 Active Alina Castaneda MD PhD Active PROMETHAZINE-CODEINE 6.25-10 MG/5ML SYRP 1 tsp po q 6 hours prn cough PROMETHAZINE-CODEINE 84723827141 No Longer Active Alina Castaneda MD PhD Active CEFDINIR 300 MG CAPS by mouth twice a day CEFDINIR 12682662112 No Longer Active Alina Castaneda MD PhD Active METFORMIN HCL 500 MG [id number] Take 3 tablets by mouth everyday METFORMIN HCL 27674565859 No Longer Active Alina Castaneda MD PhD Active LEVEMIR 100 UNIT/ML SOLN 90 units SQ qHS INSULIN DETEMIR 47897823370 No Longer Active Marvel MARROQUIN Active TOPROL XL 100 MG [id number] 1 @ HS METOPROLOL SUCCINATE 13589477855 No Longer Active Marvel MARROQUIN Active ALLOPURINOL 300 MG TABS Take one by mouth daily ALLOPURINOL 70162472092 Active Alina Castaneda MD PhD Active ZYPREXA 10 MG TABS Take one by mouth daily OLANZAPINE 46720800646 No Longer Active Alina Castaneda MD PhD Active NOVOLOG 100 UNIT/ML SOLN 40 units with every meal INSULIN ASPART 23118945744 No Longer Active Alina Castaneda MD PhD Active VERAPAMIL HCL CR 120 MG TAB CR 1 qPM VERAPAMIL HCL 72106133013 No Longer Active Salina Emely [facility] Active ZYPREXA 15 MG TABS Take 1 tablet by mouth daily OLANZAPINE 86710768566 No Longer Active Marvel MARROQUIN Active LISINOPRIL 20 MG TABS 1 BID LISINOPRIL 68101726931 Active Mao Rodriguez MD Active ALBUTEROL SULFATE (2.5 MG/3ML) 0.083% NEBU 1 neb tid and prn cough ALBUTEROL SULFATE 22341520132 No Longer Active Alina Castaneda MD PhD Active FLUVOXAMINE MALEATE 100 MG TABS Take one (1) tablet by mouth am, 1/2 at noon, 1 pm FLUVOXAMINE MALEATE 60148208312 Active Alina Castaneda MD PhD Active TRAVATAN Z 0.004 % SOLN 1 gtt each eye daily TRAVOPROST 25203861005 Active Alina Mendez Active LANTUS 100 UNIT/ML SOLN 60 units sq q hs INSULIN GLARGINE 33035690093 No Longer Active Alina Mendez Active UROXATRAL 10 MG [id number]-TUV Take 1 tablet by mouth daily ALFUZOSIN HCL 36539030982 Active Tanya MARROQUIN Active ALBUTEROL SULFATE (2.5 MG/3ML) 0.083% NEBU 1 neb tid and prn cough ALBUTEROL SULFATE (2.5 MG/3ML) 0.083% NEBU 891027 ALBUTEROL SULFATE Inactive ZYPREXA 15 MG TABS Take 1 tablet by mouth daily ZYPREXA 15 MG TABS 546655 OLANZAPINE Inactive VERAPAMIL HCL CR 120 MG TAB CR 1 qPM VERAPAMIL HCL CR 120 MG TAB CR VERAPAMIL HCL Inactive ZYPREXA 10 MG TABS Take one by mouth daily ZYPREXA 10 MG TABS 599894 OLANZAPINE Inactive TOPROL XL 100 MG [id number] 1 @ HS TOPROL XL 100 MG FZ72S-HSV METOPROLOL SUCCINATE Inactive LEVEMIR 100 UNIT/ML SOLN 90 units SQ qHS LEVEMIR 100 UNIT/ML SOLN INSULIN DETEMIR Inactive PROMETHAZINE-CODEINE 6.25-10 MG/5ML SYRP 1 tsp po q 6 hours prn cough PROMETHAZINE-CODEINE 6.25-10 MG/5ML SYRP 768197 PROMETHAZINE- CODEINE Inactive GUAIFENESIN 600 MG [id number] 1 tablet by mouth twice daily if needed for cough GUAIFENESIN 600 MG [id number]-DWE GUAIFENESIN Inactive ALBUTEROL SULFATE 0.083 % NEBU SOLN one vial per nebulizer TID and PRN cough/ soa ALBUTEROL SULFATE 0.083 % NEBU SOLN 673261 ALBUTEROL SULFATE Inactive ZYPREXA 5 MG TABS take one tablet by mouth every evening ZYPREXA 5 MG TABS 462092 OLANZAPINE Inactive HYDROCODONE-ACETAMINOPHEN 5-325 MG TABS take one tablet by mouth every four hours as needed for pain HYDROCODONE-ACETAMINOPHEN 5-325 MG TABS 391747 HYDROCODONE-ACETAMINOPHEN Inactive BACTROBAN 2 % CREAM apply to ear and nose twice daily BACTROBAN 2 % CREAM 080754 MUPIROCIN CALCIUM Inactive CYCLOBENZAPRINE HCL 10 MG TABS 1/2 tablet by mouth every 8 hours as needed for muscle spasms CYCLOBENZAPRINE HCL 10 MG TABS 424613 CYCLOBENZAPRINE HCL Inactive NAVANE 10 MG CAPS 1/2 tablet twice a day NAVANE 10 MG CAPS THIOTHIXENE Inactive DOXEPIN HCL 10 MG CAPS Take 1 tablet by mouth daily DOXEPIN HCL 10 MG CAPS 4210826 DOXEPIN HCL Inactive HYDROCODONE-ACETAMINOPHEN 7.5-325 MG TABS 1 four times a day as needed for pain HYDROCODONE-ACETAMINOPHEN 7.5-325 MG TABS 213380 HYDROCODONE-ACETAMINOPHEN Inactive NIACIN CR 500 MG CR-TABS 2 qHS NIACIN CR 500 MG CR- TABS NIACIN Inactive ORPHENADRINE CITRATE ER 100 MG [id number] 1 every 12 hr. as needed ORPHENADRINE CITRATE ER 100 MG [id number]-HGW ORPHENADRINE CITRATE Inactive ACETAMINOPHEN 500 MG TABS 2 Q 6 hr. PRN ACETAMINOPHEN 500 MG TABS 291231 ACETAMINOPHEN Inactive SAPHRIS 5 MG SUBL by mouth twice a day SAPHRIS 5 MG SUBL ASENAPINE MALEATE Inactive NIACIN ER 500 MG CR-TABS 4 qHS (for triglycerides) NIACIN ER 500 MG CR-TABS NIACIN Inactive IBUPROFEN 200 MG TABS 1 Q 6 hr. PRN IBUPROFEN 200 MG TABS 930748 IBUPROFEN Inactive FLUTICASONE PROPIONATE 50 MCG/ACT SUSP 2 sprays each nostril qDay x 30 days FLUTICASONE PROPIONATE 50 MCG/ACT SUSP 847942 FLUTICASONE PROPIONATE Inactive EQL TRUETEST TEST STRP Test blood sugar TID EQL TRUETEST TEST STRP GLUCOSE BLOOD Inactive TERESE CONTOUR TEST STRP monitor blood sugars 3x/day TERESE CONTOUR TEST STRP GLUCOSE BLOOD Inactive DETROL LA 4 MG [id number] Take 1 tablet by mouth daily DETROL LA 4 MG [id number]-JFW TOLTERODINE TARTRATE Inactive CEFDINIR 300 MG CAPS by mouth twice a day CEFDINIR 300 MG CAPS 361954 CEFDINIR Inactive AZITHROMYCIN 500 MG SOLR 1 po q day AZITHROMYCIN 500 MG SOLR 978091 AZITHROMYCIN Inactive AMOXICILLIN 500 MG CAPS 2 po BID x 10 days AMOXICILLIN 500 MG CAPS 176254 AMOXICILLIN Inactive Immunizations Vaccine Administration Date Value Standard [...] Fluvirin, Fluarix, Agriflu(>=18 yo)) Fluzone (>3 yrs.) [AHC791] Influenza, seasonal, injectable pneumococcal immunization administered Pneumovax 23 [CVX33] pneumococcal polysaccharide vaccine, 23 valent Vital Signs Date Name Value Unit Range Description blood pressure, diastolic - 8462-4 50 mm[Hg] [...] E&M - 3141-9 250 [lb_av] Weight Measured blood pressure, diastolic - 8462-4 70 mm[Hg] BP garcia blood pressure, systolic - 8480-6 140 mm[Hg] BP sys height E&M - 8302-2 70 [in_us] Bdy height pulse rate E&M - 8867-4 80 /min Heart rate weight E&M - 3141-9 259 [lb_av] Weight Measured blood pressure, diastolic - 8462-4 60 mm[Hg] BP garcia blood pressure, systolic - 8480-6 142 mm[Hg] BP sys height E&M - 8302-2 70 [in_us] Bdy height pulse rate E&M - 8867-4 84 /min Heart rate weight E&M - 3141-9 240 [lb_av] Weight Measured blood pressure, diastolic - 8462-4 74 mm[Hg] BP garcia blood pressure, systolic - 8480-6 117 mm[Hg] BP sys height E&M - 8302-2 70 [in_us] Bdy height pulse rate E&M - 8867-4 105 /min Heart rate temperature E&M 98.1 [degF] Body temperature weight E&M - 3141-9 238.38 [lb_av] Weight Measured blood pressure, diastolic - 8462-4 70 mm[Hg] BP garcia blood pressure, systolic - 8480-6 124 mm[Hg] BP sys height E&M - 8302-2 70 [in_us] Bdy height pulse rate E&M - 8867-4 84 /min Heart rate weight E&M - 3141-9 239 [lb_av] Weight Measured blood pressure, diastolic - 8462-4 80 mm[Hg] BP garcia blood pressure, systolic - 8480-6 147 mm[Hg] BP sys height E&M - 8302-2 70 [in_us] Bdy height pulse rate E&M - 8867-4 101 /min Heart rate temperature E&M 99.2 [degF] Body temperature weight E&M - 3141-9 248.56 [lb_av] Weight Measured blood pressure, diastolic - 8462-4 60 mm[Hg] BP garcia blood pressure, systolic - 8480-6 120 mm[Hg] BP sys height E&M - 8302-2 70 [in_us] Bdy height weight E&M - 3141-9 261 [lb_av] Weight Measured blood pressure, diastolic - 8462-4 76 mm[Hg] BP garcia blood pressure, systolic - 8480-6 137 mm[Hg] BP sys height E&M - 8302-2 70 [in_us] Bdy height pulse rate E&M - 8867-4 93 /min Heart rate temperature E&M 97.8 [degF] Body temperature weight E&M - 3141-9 255.19 [lb_av] Weight Measured blood pressure, diastolic - 8462-4 83 mm[Hg] BP garcia blood pressure, systolic - 8480-6 137 mm[Hg] BP sys height E&M - 8302-2 70 [in_us] Bdy height pulse rate E&M - 8867-4 123 /min Heart rate temperature E&M 98.6 [degF] Body temperature weight E&M - 3141-9 258 [lb_av] Weight Measured Diagnostic Results Date Name Value Unit Range Description Lab Report: Basic Metabolic Panel, HGBA1C - Chemistry sodium, serum 130 mmol/L 628-065 2945/06/09 potassium, serum 4.0 mmol/L 3.5-5.2 chloride, serum 92 mmol/L 98-107 carbon dioxide, venous blood 22.1 mmol/L 21.0-32.0 blood glucose 60 mg/dL 65-110 calcium, serum 9.5 mg/dL 8.5-10.1 urea nitrogen, blood 14 mg/dL 7-18 creatinine, serum 1.30 mg/dL 0.60-1.30 hemoglobin A1C, blood, as % of total hemoglobin 6.0 % 4.3-6.0 Lab Report: CBC, CMP, Lipid Panel, TSH, PSA, microalbumin, uric acid - Chemistry sodium, serum 130 mmol/L 703-195 1728/05/01 potassium, serum 5.2 mmol/L 3.5-5.2 chloride, serum [...] 0.40 mg/dL 0.00-1.00 cholesterol, serum 151 mg/dL 584-205 1822/05/01 triglyceride, serum, fasting 356 mg/dL 30-200 HDL cholesterol, serum 19 mg/dL 32-96 LDL cholesterol, serum 61 mg/dL 0-130 TSH 2.22 m[iU]/mL 0.36-3.74 prostate specific antigen 0.11 ng/mL 0.00-4.00 albumin/creatinine ratio, urine < 30 mg/g mg/g{creat} 0-29 uric acid, serum 6.0 mg/dL 2.6-7.2 Lab Report: CBC, CMP, Lipid Panel, TSH, [...] urine 10 0-19 Lab Report: Comp. Metabolic Panel, HGBA1C - Chemistry sodium, serum 126 mmol/L 319-746 8466/02/26 potassium, serum 4.8 mmol/L 3.5-5.2 chloride, serum 92 mmol/L 98-107 carbon dioxide, venous blood 27.7 mmol/L 21.0-32.0 blood glucose 229 mg/dL 65-110 urea nitrogen, blood 10 mg/dL 7-18 creatinine, serum 1.00 mg/dL 0.60-1.30 alanine aminotransferase (SGPT), serum 137 U/L 12-78 aspartate aminotransferase (SGOT), serum 58 U/L 15-37 alkaline phosphatase, serum 64 U/L 50-136 calcium, serum 7.8 mg/dL 8.5-10.1 bilirubin, serum, total 0.50 mg/dL 0.00-1.00 hemoglobin A1C, blood, as % of total hemoglobin 6.9 % 4.3-6.0 Lab Report: HGBA1C - Chemistry hemoglobin A1C, blood, as % of total hemoglobin 7.3 % 4.3-6.0 Lab Report: Lipid Panel, HEPATIC PANEL, CPK, LDL DIRECT - Chemistry cholesterol, serum 158 mg/dL 925-971 8848/07/11 triglyceride, serum, fasting 489 mg/dL 30-200 HDL cholesterol, serum 18 mg/dL 32-96 LDL cholesterol, serum 77.00 mg/dL 5.00-130.00 alkaline phosphatase, serum 72 U/L 50-136 aspartate aminotransferase (SGOT), serum 37 U/L 15-37 alanine aminotransferase (SGPT), serum 105 U/L 12-78 bilirubin, serum, total 0.31 mg/dL 0.00-1.00 Office Visit: Diabetes Visit - Chemistry cholesterol, [...] LDL target level 100 mg/dL Office Visit: Diabetic check, diabetic shoes - Chemistry cholesterol, target level 200 mg/dL triglyceride, target level 200 mg/dL HDL cholesterol, serum, target level 35 mg/dL LDL target level 100 mg/dL Office Visit: Follow up ER, headaches - Chemistry cholesterol, target level 200 mg/dL triglyceride, target level 200 mg/dL HDL cholesterol, serum, target level 35 mg/dL LDL target level 100 mg/dL Encounters Code Encounter Date Provider Facility CPT-31409 Level 3 Est. Patient 13:19:10 CDT [facility] [place] CPT-70151 Level 3 Est. Patient 08:20:05 CDT Alina Castaneda MD [facility] CPT-59998 Level 3 Est. Patient 15:17:18 CDT Alina Castaneda MD PhD [facility] CPT-57340 Level 3 Est. Patient 14:25:36 AIRPLANE DISPATCHER [facility] [place] CPT-69630 Level 3 Est. Patient 10:09:15 AIRPLANE DISPATCHER [facility] CPT-37115 Level 3 Est. Patient 21:28:43 CDT Alina Castaneda MD PhD [facility] CPT-70452 Level 3 Est. Patient 15:20:11 CDT Marvel Charles [facility] [place] CPT-74061 Level 4 Est. Patient 19:08:12 CDT Alina Castaneda MD [facility]-03730 Level 3 Est. [facility] 15:06:[facility]53257 Level 4 Est. Patient 17:48:15 CDT Alina Castaneda MD [facility]-31195 Level 3 Est. Patient 14:53:49 CDT Alina Castaneda MD [facility]-49662 Level 3 Est. Patient 09:35:16 CDT Alina Castaneda MD [facility]-98341 Level 3 Est. Patient 12:23:22 CDT Alina Castaneda MD [facility]-31557 Level 3 Est. Patient 16:19:15 CDT Alina Castaneda MD [facility]-46085 Level 3 Est. Patient 21:39:56 AIRPLANE DISPATCHER Alina Castaneda MD [facility]-48728 Level 4 Est. Patient 14:12:56 AIRPLANE DISPATCHER Alina Castaneda MD [facility]-54417 Level 2 Est. Patient 15:34:57 AIRPLANE DISPATCHER Alina Castaneda MD [facility]-06398 Level 3 Est. Patient 12:17:04 AIRPLANE DISPATCHER Alina Castaneda MD [facility]-77073 Level 3 Est. Patient 09:18:18 AIRPLANE DISPATCHER Marvel [facility]-40757 Level 2 Est. Patient 21:50:24 CDT Alina Castaneda MD [facility]-81173 Level 3 Est. Patient 09:17:28 CDT Marvel Araceli [facility] [place] CPT-77607 Level 4 Est. Patient 18:54:02 CDT Alina Castaneda MD [facility] CPT-05735 Level 3 Est. Patient 10:47:10 CDT Alina Castaneda MD [facility] CPT-59899 Level 3 Est. Patient 09:22:20 CDT Marvel Thurstonestela [facility] [place] CPT-81864 Level 3 Est. Patient 16:39:43 CDT Marvel Araceli [facility] [place] CPT-47861 Level 3 Est. Patient 16:05:16 CDT Alina Castaneda MD [facility] CPT-23695 Level 3 Est. Patient 00:29:15 CDT Alina Castaneda MD [facility] CPT-99495 Level 3 Est. Patient 10:49:22 AIRPLANE DISPATCHER [place] [place] CPT-76160 Level 3 Est. Patient 21:30:19 AIRPLANE DISPATCHER Alina Castandea MD [facility] CPT-97266 Level 4 Est. Patient 17:04:11 AIRPLANE DISPATCHER [facility] [place] CPT-02199 Level 3 Est. Patient 15:34:11 AIRPLANE DISPATCHER Marvel [facility] [place] CPT-56569 Level 2 Est. Patient 12:51:58 AIRPLANE DISPATCHER Alina Castaneda MD [facility] CPT-37301 Level 3 Est. Patient 13:20:01 AIRPLANE DISPATCHER Alina Castaneda MD [facility] CPT-58415 Level 3 Est. Patient 09:23:35 CDT Alina Castaneda MD [facility] Procedures Code Procedure Name Date Entry Date Standard Description CPT-10163 Administration single or combination vaccine inc oral 11 :49:51 CDT CPT-95050 Pneumovax 11:49:51 CDT CPT-02197 Ribs unilateral 2V 12:37:22 AIRPLANE DISPATCHER CPT-27490 Chest 2V Frontal and Lat 17:15:26 CDT CPT-46881 Abx/Therapy Injection 18:54:02 CDT CPT-J0696 Rocephin 1000 mg (Ceftriaxone) 16:00:32 CDT CPT-69920 Chest 2V Frontal and Lat 15:26:45 CDT CPT-34796 Chest 2V Frontal and Lat 10:23:27 CDT CPT-89864 Venipuncture Draw Fee 10:11:00 CDT CPT-05110 Administration single or combination vaccine inc oral 11 :56:38 CDT CPT-94852 Influenza split virus > age 3 11:56:38 CDT CPT-27644 Venipuncture Draw Fee 08:49:54 AIRPLANE DISPATCHER CPT-09512 EKG Trac and Interp 17:54:19 AIRPLANE DISPATCHER
--- OUTSIDE RECORDS SUMMARY | 2018-07-02 19:34 | XMS REPORT | Clinical Summary ---
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 Active Alina Castaneda MD PhD Recurrent isolated sleep paralysis SPECIAL SCREENING FOR MALIGNANT NEOPLASM OF PROSTATE V76.44 Resolved Alina Castaneda MD PhD Screening for malignant neoplasms of prostate Hypoglycemia 251.2 Active Marvel MARROQUIN Hypoglycemia, unspecified Diabetes mellitus, type II 250.00 Active Marvel MARROQUIN Diabetes mellitus without mention of complication, type II or unspecified type, not stated as uncontrolled WOUND, OPEN, NOSE ICD-873.20 Inactive Alina Castaneda [...] NDC Status Provider Patient Instruction MORPHINE SULFATE 30 MG TABS 1 pill by mouth nightly, for pain MORPHINE SULFATE 12169799948 Active Alina Castaneda MD PhD Active LATUDA 80 MG TABS 1 tab by mouth every evening LURASIDONE HCL 66365343928 Active Alina Castaneda MD PhD Active UROXATRAL 10 MG [id number] Take 1 tablet by mouth daily ALFUZOSIN HCL 73695058021 No Longer Active Alina Castaneda MD PhD Active THIOTHIXENE 5 MG CAPS by mouth twice a day THIOTHIXENE 36290979971 No Longer Active Alina Castaneda MD PhD Active ZYPREXA 7.5 MG TABS 1 at HS OLANZAPINE 97983715051 No Longer Active Alina Castaneda MD PhD Active HUMALOG 100 UNIT/ML SOLN Take 20 units with breakfast, 10u with lunch and suppetr. INSULIN LISPRO (HUMAN) 95725420638 Active Maliheh Ziglari [employer] Active LEVEMIR 100 UNIT/ML SOLN Take 70 u at 7-8pm INSULIN DETEMIR 81023377906 Active Maliheh Ziglari [employer] Active BD INSULIN SYRINGE 28G X 1/2" 1 ML MISC 1 four times per day INSULIN SYRINGE-NEEDLE U-100 05330603862 Active Maliheh Ziglari [employer] Active CYCLOBENZAPRINE HCL 10 MG TABS 1 tablet by mouth three times daily, scheduled CYCLOBENZAPRINE HCL 11934276781 Active Alina Castaneda MD PhD Active TOLTERODINE TARTRATE 2 MG TABS 1 pill twice daily, for bladder TOLTERODINE TARTRATE 57526089937 Active Alina Castaneda MD PhD Active DETROL LA 4 MG [id number] Take 1 tablet by mouth daily TOLTERODINE TARTRATE 76338326209 No Longer Active Alina Castaneda MD PhD Active HYDROCODONE-ACETAMINOPHEN 5-325 MG TABS 2 tabs by mouth three times daily as needed for pain HYDROCODONE-ACETAMINOPHEN 70529530933 Active Alina Castaneda MD PhD Active TERESE CONTOUR TEST STRP monitor blood sugars 3x/day GLUCOSE BLOOD 49310590107 No Longer Active Alina Castaneda MD PhD Active EQL TRUETEST TEST STRP Test blood sugar TID GLUCOSE BLOOD 90458580187 No Longer Active Alina Castaneda MD PhD Active FLUTICASONE PROPIONATE 50 MCG/ACT SUSP 2 sprays each nostril qDay x 30 days FLUTICASONE PROPIONATE 78746829157 No Longer Active Alina Castaneda MD PhD Active IBUPROFEN 200 MG TABS 1 Q 6 hr. PRN IBUPROFEN 30649270901 No Longer Active Alina Castaneda MD PhD Active NIACIN ER 500 MG CR-TABS 4 qHS (for triglycerides) NIACIN 82056101032 No Longer Active Alina Castaneda MD PhD Active TRUETEST TEST STRP check sugars 4x/day GLUCOSE BLOOD 80370275562 Active Alina Castaneda MD PhD Active ALFUZOSIN HCL ER 10 MG [id number] 1 tablet daily ALFUZOSIN HCL 63310344797 Active Vanessa Hickey MD Active CLONAZEPAM 1 MG TABS 1 pill by mouth three times daily CLONAZEPAM 20678200320 Active Alina Castaneda MD PhD Active LOVAZA 1 GM CAPS 4 daily (for triglycerides) [id number] ETHYL ESTERS 85207079777 Active Alina Castaneda MD PhD Active SAPHRIS 5 MG SUBL by mouth twice a day ASENAPINE MALEATE 66642415730 No Longer Active Maljohn Mackenzieglari [employer] Active ACETAMINOPHEN 500 MG TABS 2 Q 6 hr. PRN ACETAMINOPHEN 33383218011 No Longer Active Maliheh Ziglari [employer] Active VERAPAMIL HCL ER 120 MG [id number] 1 pill by mouth twice a day, for headache prevention/control VERAPAMIL HCL 16633794075 Active Alina Castaneda MD PhD Active ORPHENADRINE CITRATE ER 100 MG [id number] 1 every 12 hr. as needed ORPHENADRINE CITRATE 23608052955 No Longer Active Alina Castaneda MD PhD Active NIACIN CR 500 MG CR-TABS 2 qHS NIACIN 68744511745 No Longer Active Alina Castaneda MD PhD Active AMOXICILLIN 500 MG CAPS 2 po BID x 10 days AMOXICILLIN 06583353879 No Longer Active Alina Castaneda MD PhD Active HYDROCODONE-ACETAMINOPHEN 7.5-325 MG TABS 1 four times a day as needed for pain HYDROCODONE-ACETAMINOPHEN 60876666287 No Longer Active Alina Castaneda MD PhD Active METFORMIN HCL ER 500 MG [id number]-RPX Take three tablets by mouth everyday METFORMIN HCL 65277732206 Active Alina Castaneda MD PhD Active DOXEPIN HCL 10 MG CAPS Take 1 tablet by mouth daily DOXEPIN HCL 42452303146 No Longer Active Salina Han A Active NAVANE 10 MG CAPS 1/2 tablet twice a day THIOTHIXENE No Longer Active Salina Han [facility] Active CYCLOBENZAPRINE HCL 10 MG TABS 1/2 tablet by mouth every 8 hours as needed for muscle spasms CYCLOBENZAPRINE HCL 02519131970 No Longer Active Alina Castaneda MD PhD Active BACTROBAN 2 % CREAM apply to ear and nose twice daily MUPIROCIN CALCIUM 76577535766 No Longer Active Alina Castaneda MD PhD Active HYDROCODONE-ACETAMINOPHEN 5-325 MG TABS take one tablet by mouth every four hours as needed for pain HYDROCODONE-ACETAMINOPHEN 12957859749 No Longer Active Alina Castaneda MD PhD Active ZOLPIDEM TARTRATE 10 MG TABS take at bedtime ZOLPIDEM TARTRATE 53168618547 Active Alina Castaneda MD PhD Active ZYPREXA 5 MG TABS take one tablet by mouth every evening OLANZAPINE 57960065389 No Longer Active Alina Castaneda MD PhD Active ALBUTEROL SULFATE 0.083 % NEBU SOLN one vial per nebulizer TID and PRN cough/ soa ALBUTEROL SULFATE 43652434469 No Longer Active Alina Castaneda MD PhD Active GUAIFENESIN 600 MG IL43Y-PKD 1 tablet by mouth twice daily if needed for cough GUAIFENESIN 53413645665 No Longer Active Marvel MARROQUIN Active AZITHROMYCIN 500 MG SOLR 1 po q day AZITHROMYCIN 30633972715 No Longer Active Alina Castaneda MD PhD Active METOPROLOL SUCCINATE 100 MG EK96F-SUT 1 by mouth daily for blood pressure METOPROLOL SUCCINATE 16089589086 Active Alina Castaneda MD PhD Active PROMETHAZINE-CODEINE 6.25-10 MG/5ML SYRP 1 tsp po q 6 hours prn cough PROMETHAZINE-CODEINE 19437076690 No Longer Active Alina Castaneda MD PhD Active CEFDINIR 300 MG CAPS by mouth twice a day CEFDINIR 56155978434 No Longer Active Alina Castaneda MD PhD Active METFORMIN HCL 500 MG [id number]-MXO Take 3 tablets by mouth everyday METFORMIN HCL 27788824208 No Longer Active Alina Castaneda MD PhD Active LEVEMIR 100 UNIT/ML SOLN 90 units SQ qHS INSULIN DETEMIR 08183166189 No Longer Active Marvel MARROQUIN Active TOPROL XL 100 MG DV43Y-MNT 1 @ HS METOPROLOL SUCCINATE 39409927227 No Longer Active Marvel MARROQUIN Active ALLOPURINOL 300 MG TABS Take one by mouth daily ALLOPURINOL 63862911185 Active Alina Castaneda MD PhD Active ZYPREXA 10 MG TABS Take one by mouth daily OLANZAPINE 89237163125 No Longer Active Alina Castaneda MD PhD Active NOVOLOG 100 UNIT/ML SOLN 40 units with every meal INSULIN ASPART 28513520876 No Longer Active Alina Castaneda MD PhD Active VERAPAMIL HCL CR 120 MG TAB CR 1 qPM VERAPAMIL HCL 63254356796 No Longer Active Salina Han [facility] Active ZYPREXA 15 MG TABS Take 1 tablet by mouth daily OLANZAPINE 80793183941 No Longer Active Marvel MARROQUIN Active LISINOPRIL 20 MG TABS 1 BID LISINOPRIL 61818401251 Active Alina Castaneda MD PhD Active ALBUTEROL SULFATE (2.5 MG/3ML) 0.083% NEBU 1 neb tid and prn cough ALBUTEROL SULFATE 45053086474 No Longer Active Alina Castaneda MD PhD Active FLUVOXAMINE MALEATE 100 MG TABS Take one (1) tablet by mouth am, 05/25 at noon, 1 pm FLUVOXAMINE MALEATE 31620130414 Active Alina Castaneda MD PhD Active TRAVATAN Z 0.004 % SOLN 1 gtt each eye daily TRAVOPROST 45711200888 Active CRYSTAL Suarez Active LANTUS 100 UNIT/ML SOLN 60 units sq q hs INSULIN GLARGINE 51768259838 No Longer Active CRYSTAL Suarez Active ALBUTEROL SULFATE (2.5 MG/3ML) 0.083% NEBU 1 neb tid and prn cough ALBUTEROL SULFATE (2.5 MG/3ML) 0.083% NEBU 053295 ALBUTEROL SULFATE Inactive ZYPREXA 15 MG TABS Take 1 tablet by mouth daily ZYPREXA 15 MG TABS 190455 OLANZAPINE Inactive VERAPAMIL HCL CR 120 MG TAB CR 1 qPM VERAPAMIL HCL CR 120 MG TAB CR VERAPAMIL HCL Inactive ZYPREXA 10 MG TABS Take one by mouth daily ZYPREXA 10 MG TABS 603413 OLANZAPINE Inactive TOPROL XL 100 MG [id number] 1 @ HS TOPROL XL 100 MG NH79Y-MFP METOPROLOL SUCCINATE Inactive LEVEMIR 100 UNIT/ML SOLN 90 units SQ qHS LEVEMIR 100 UNIT/ML SOLN INSULIN DETEMIR Inactive PROMETHAZINE-CODEINE 6.25-10 MG/5ML SYRP 1 tsp po q 6 hours prn cough PROMETHAZINE-CODEINE 6.25-10 MG/5ML SYRP 011754 PROMETHAZINE- CODEINE Inactive GUAIFENESIN 600 MG NQ22Z-HDV 1 tablet by mouth twice daily if needed for cough GUAIFENESIN 600 MG [id number]-[id number] GUAIFENESIN Inactive ALBUTEROL SULFATE 0.083 % NEBU SOLN one vial per nebulizer TID and PRN cough/ soa ALBUTEROL SULFATE 0.083 % [facility] 884558 ALBUTEROL SULFATE Inactive ZYPREXA 5 MG TABS take one tablet by mouth every evening ZYPREXA 5 MG TABS 423405 OLANZAPINE Inactive HYDROCODONE-ACETAMINOPHEN 5-325 MG TABS take one tablet by mouth every four hours as needed for pain HYDROCODONE-ACETAMINOPHEN 5-325 MG TABS 229008 HYDROCODONE-ACETAMINOPHEN Inactive BACTROBAN 2 % CREAM apply to ear and nose twice daily BACTROBAN 2 % CREAM 137881 MUPIROCIN CALCIUM Inactive CYCLOBENZAPRINE HCL 10 MG TABS 1/2 tablet by mouth every 8 hours as needed for muscle spasms CYCLOBENZAPRINE HCL 10 MG TABS 747158 CYCLOBENZAPRINE HCL Inactive NAVANE 10 MG CAPS 1/2 tablet twice a day NAVANE 10 MG CAPS THIOTHIXENE Inactive DOXEPIN HCL 10 MG CAPS Take 1 tablet by mouth daily DOXEPIN HCL 10 MG CAPS 7615323 DOXEPIN HCL Inactive HYDROCODONE-ACETAMINOPHEN 7.5-325 MG TABS 1 four times a day as needed for pain HYDROCODONE-ACETAMINOPHEN 7.5-325 MG TABS 009719 HYDROCODONE-ACETAMINOPHEN Inactive NIACIN CR 500 MG CR-TABS 2 qHS NIACIN CR 500 MG CR- TABS NIACIN Inactive ORPHENADRINE CITRATE ER 100 MG [id number] 1 every 12 hr. as needed ORPHENADRINE CITRATE ER 100 MG AZ96X-COY ORPHENADRINE CITRATE Inactive ACETAMINOPHEN 500 MG TABS 2 Q 6 hr. PRN ACETAMINOPHEN 500 MG TABS 519468 ACETAMINOPHEN Inactive SAPHRIS 5 MG SUBL by mouth twice a day SAPHRIS 5 MG SUBL ASENAPINE MALEATE Inactive NIACIN ER 500 MG CR-TABS 4 qHS (for triglycerides) NIACIN ER 500 MG CR-TABS NIACIN Inactive IBUPROFEN 200 MG TABS 1 Q 6 hr. PRN IBUPROFEN 200 MG TABS 921016 IBUPROFEN Inactive FLUTICASONE PROPIONATE 50 MCG/ACT SUSP 2 sprays each nostril qDay x 30 days FLUTICASONE PROPIONATE 50 MCG/ACT SUSP 859205 FLUTICASONE PROPIONATE Inactive EQL TRUETEST TEST STRP Test blood sugar TID EQL TRUETEST TEST STRP GLUCOSE BLOOD Inactive TERESE CONTOUR TEST STRP monitor blood sugars 3x/day TERESE CONTOUR TEST STRP GLUCOSE BLOOD Inactive DETROL LA 4 MG [id number] Take 1 tablet by mouth daily DETROL LA 4 MG [id number] TOLTERODINE TARTRATE Inactive ZYPREXA 7.5 MG TABS 1 at HS ZYPREXA 7.5 MG TABS 670546 OLANZAPINE Inactive THIOTHIXENE 5 MG CAPS by mouth twice a day THIOTHIXENE 5 MG CAPS 718965 THIOTHIXENE Inactive UROXATRAL 10 MG [id number] Take 1 tablet by mouth daily UROXATRAL 10 MG RH66R-WCP ALFUZOSIN HCL Inactive CEFDINIR 300 MG CAPS by mouth twice a day CEFDINIR 300 MG CAPS 880107 CEFDINIR Inactive AZITHROMYCIN 500 MG SOLR 1 po q day AZITHROMYCIN 500 MG SOLR 029736 AZITHROMYCIN Inactive AMOXICILLIN 500 MG CAPS 2 po BID x 10 days AMOXICILLIN 500 MG CAPS 651646 AMOXICILLIN Inactive Immunizations Vaccine Administration Date Value [...] Fluvirin, Fluarix, Agriflu(>=18 yo)) Fluzone (>3 yrs.) [[id number]] Influenza, seasonal, injectable pneumococcal immunization administered Pneumovax 23 [CVX33] pneumococcal polysaccharide vaccine, 23 valent Vital Signs Date Name Value Unit Range Description blood pressure, diastolic 72 mm[Hg] BP garcia blood pressure, systolic 120 mm[Hg] BP sys height E&M 70 [in_us] Bdy height pulse rate E&M 88 /min Heart rate weight E&M 240 [lb_av] Weight Measured blood pressure, diastolic 73 mm[Hg] BP garcia blood pressure, systolic 143 mm[Hg] BP sys height E&M 70 [in_us] Bdy height pulse rate E&M 88 /min Heart rate temperature E&M 98.9 [degF] Body temperature weight E&M 243 [lb_av] Weight Measured blood pressure, diastolic 72 mm[Hg] BP garcia blood pressure, systolic 129 mm[Hg] BP sys height E&M 70 [in_us] Bdy height pulse rate E&M 83 /min Heart rate temperature E&M 98.0 [degF] Body temperature weight E&M 243 [lb_av] Weight Measured blood pressure, diastolic 50 mm[Hg] BP garcia blood pressure, systolic 122 mm[Hg] BP sys pulse rate E&M 80 /min Heart rate blood pressure, diastolic 62 mm[Hg] BP garcia blood pressure, systolic 123 mm[Hg] BP sys height E&M 70 [in_us] Bdy height pulse rate E&M 86 /min Heart rate temperature E&M 98.5 [degF] Body temperature weight E&M 251 [lb_av] Weight Measured blood pressure, diastolic 82 mm[Hg] BP garcia blood pressure, systolic 146 mm[Hg] BP sys height E&M 70 [in_us] Bdy height pulse rate E&M 106 /min Heart rate temperature E&M 98.2 [degF] Body temperature weight E&M 250 [lb_av] Weight Measured blood pressure, diastolic 70 mm[Hg] BP garcia blood pressure, systolic 140 mm[Hg] BP sys height E&M 70 [in_us] Bdy height pulse rate E&M 80 /min Heart rate weight E&M 259 [lb_av] Weight Measured blood pressure, diastolic 60 mm[Hg] BP garcia blood pressure, systolic 142 mm[Hg] BP sys height E&M 70 [in_us] Bdy height pulse rate E&M 84 /min Heart rate weight E&M 240 [lb_av] Weight Measured blood pressure, diastolic 74 mm[Hg] BP garcia blood pressure, systolic 117 mm[Hg] BP sys height E&M 70 [in_us] Bdy height pulse rate E&M 105 /min Heart rate temperature E&M 98.1 [degF] Body temperature weight E&M 238.38 [lb_av] Weight Measured blood pressure, diastolic 70 mm[Hg] BP garcia blood pressure, systolic 124 mm[Hg] BP sys height E&M 70 [in_us] Bdy height pulse rate E&M 84 /min Heart rate weight E&M 239 [lb_av] Weight Measured blood pressure, diastolic 80 mm[Hg] BP garcia blood pressure, systolic 147 mm[Hg] BP sys height E&M 70 [in_us] Bdy height pulse rate E&M 101 /min Heart rate temperature E&M 99.2 [degF] Body temperature weight E&M 248.56 [lb_av] Weight Measured Diagnostic Results Date Name Value Unit Range Description Lab Report: Basic Metabolic Panel, HGBA1C - Chemistry sodium, serum 130 mmol/L 166-003 5183/06/09 potassium, serum 4.0 mmol/L 3.5-5.2 chloride, serum [...] 6.0 mg/dL 2.6-7.2 sodium, serum 130 mmol/L 938-032 6799/05/01 potassium, serum 5.2 mmol/L 3.5-5.2 chloride, serum [...] 0.40 mg/dL 0.00-1.00 cholesterol, serum 151 mg/dL 569-018 2097/05/01 triglyceride, serum, fasting 356 mg/dL 30-200 HDL [...] HGBA1C - Chemistry sodium, serum 126 mmol/L 599-015 2430/02/26 potassium, serum 4.8 mmol/L 3.5-5.2 chloride, serum [...] mg/dL Encounters Code Encounter Date Provider Facility CPT-69699 Level 3 Est. Patient 09:32:11 CDT Maliheh Ziglari [facility]-00002 Level 3 Est. Patient 12:02:49 CDT Alina Castaneda MD [facility]-65650 Level 3 Est. Patient 19:17:33 CDT Alina Castaneda MD [facility]-43802 Level 3 Est. Patient 13:19:10 CDT Marvel [facility]-08551 Level 3 Est. Patient 08:20:05 CDT Alina Castaneda MD [facility]63662 Level 3 Est. Patient 15:17:18 CDT Alina Castaneda MD [facility]76390 Level 3 Est. Patient 14:25:36 ELECTRIC METER TECHNICIAN [facility]-91053 Level 3 Est. Patient 10:09:15 ELECTRIC METER TECHNICIAN Marvel [facility]-30470 Level 3 Est. Patient 21:28:43 CDT Alina Castaneda MD [facility]-90003 Level 3 Est. Patient 15:20:11 CDT Marvel Thurstonestela [facility]-80723 Level 4 Est. Patient 19:08:12 CDT Alina Castaneda MD [facility]-09034 Level 3 Est. Patient 15:06:39 CDT Marvel Gurdeepajayestela [facility]-69145 Level 4 Est. Patient 17:48:15 CDT Alina Castaneda MD [facility]95334 Level 3 Est. Patient 14:53:49 CDT Alina Castaneda MD [facility]-19445 Level 3 Est. Patient 09:35:16 CDT Alina Castaneda MD [facility]-48558 Level 3 Est. Patient 12:23:22 CDT Alina Castaneda MD [facility]15858 Level 3 Est. Patient 16:19:15 CDT Alina Castaneda MD [facility]43507 Level 3 Est. Patient 21:39:56 ELECTRIC METER TECHNICIAN Alina Castaneda MD [facility]72329 Level 4 Est. Patient 14:12:56 ELECTRIC METER TECHNICIAN Alina Castaneda MD [facility]10490 Level 2 Est. Patient 15:34:57 ELECTRIC METER TECHNICIAN Alina Castaneda MD [facility]-92852 Level 3 Est. Patient 12:17:04 ELECTRIC METER TECHNICIAN Alina Castaneda MD [facility]-77921 Level 3 Est. Patient 09:18:18 ELECTRIC METER TECHNICIAN Marvel [facility]-23716 Level 2 Est. Patient 21:50:24 CDT Alina Castaneda MD [facility]84189 Level 3 Est. Patient 09:17:28 CDT Marvel [facility]-47211 Level 4 Est. Patient 18:54:02 CDT Alina Castaneda MD [facility]-54188 Level 3 Est. Patient 10:47:10 CDT Alina Castaneda MD [facility]86606 Level 3 Est. Patient 09:22:20 CDT Marvel Charles [facility]73786 Level 3 Est. Patient 16:39:43 CDT Marvel [facility]-94574 Level 3 Est. Patient 16:05:16 CDT Alina Castaneda MD [facility] CPT-10924 Level 3 Est. Patient 00:29:15 CDT Alina Castaneda MD [facility] CPT-17215 Level 3 Est. Patient 10:49:22 ELECTRIC METER TECHNICIAN [facility] CPT-86186 Level 3 Est. Patient 21:30:19 ELECTRIC METER TECHNICIAN Alina Castaneda MD [facility] CPT-40342 Level 4 Est. Patient 17:04:11 ELECTRIC METER TECHNICIAN [facility] CPT-53786 Level 3 Est. Patient 15:34:11 ELECTRIC METER TECHNICIAN [facility]-92828 Level 2 Est. Patient 12:51:58 ELECTRIC METER TECHNICIAN Alina Castaneda MD [facility] CPT-16177 Level 3 Est. Patient 13:20:01 ELECTRIC METER TECHNICIAN Alina Castaneda MD [facility] CPT-19100 Level 3 Est. Patient 09:23:35 CDT Alina Castaneda MD [facility] Procedures Code Procedure Name Date Entry Date Standard Description CPT-G0008 Administration of Influenza Virus Vaccine 13:05:26 CDT CPT-65613 Fluzone Quadrivalent Intramuscular Suspension 0.5 ML 13: 05:26 CDT CPT-05050 Administration single or combination vaccine inc oral 11 :49:51 CDT CPT-32602 Pneumovax 11:49:51 CDT CPT-22818 Ribs unilateral 2V 12:37:22 ELECTRIC METER TECHNICIAN CPT-42636 Chest 2V Frontal and Lat 17:15:26 CDT CPT-62276 Abx/Therapy Injection 18:54:02 CDT CPT-J0696 Rocephin 1000 mg (Ceftriaxone) 16:00:32 CDT CPT-52149 Chest 2V Frontal and Lat 15:26:45 CDT CPT-60513 Chest 2V Frontal and Lat 10:23:27 CDT CPT-89003 Venipuncture Draw Fee 10:11:00 CDT CPT-03795 Administration single or combination vaccine inc oral 11 :56:38 CDT CPT-21786 Influenza split virus > age 3 11:56:38 CDT CPT-13511 Venipuncture Draw Fee 08:49:54 ELECTRIC METER TECHNICIAN CPT-28695 EKG Trac and Interp 17:54:19 ELECTRIC METER TECHNICIAN
--- OUTSIDE RECORDS SUMMARY | 2018-07-02 19:35 | XMS REPORT | Clinical Summary ---
[...] DIABETIC HYPOGLYCEMIA, TYPE II 250.80 Resolved Maljohn MARROUQIN Diabetes mellitus with other specified manifestations, type [...] by mouth nightly, for pain MORPHINE SULFATE 12159740956 Active Alina Castaneda MD PhD Active LATUDA 80 MG TABS 1 tab by mouth every evening LURASIDONE HCL 62052348655 Active Alina Castaneda MD PhD Active UROXATRAL 10 MG [id number] Take 1 tablet by mouth daily ALFUZOSIN HCL 07946023416 No Longer Active Alina Castaneda MD PhD Active THIOTHIXENE 5 MG CAPS by mouth twice a day THIOTHIXENE 72715238829 No Longer Active Alina Castaneda MD PhD Active ZYPREXA 7.5 MG TABS 1 at HS OLANZAPINE 10246067270 No Longer Active Alina Castaneda MD PhD Active HUMALOG 100 UNIT/ML SOLN Take 20 units with breakfast, 10u with lunch and suppetr. INSULIN LISPRO (HUMAN) 52726486177 Active Maliheh Ziglari [employer] RE[employer]TER Active LEVEMIR 100 UNIT/ML SOLN Take 70 u at 7-8pm INSULIN DETEMIR 63255753667 Active Maliheh Ziglari [employer] REPORTER Active BD INSULIN SYRINGE 28G X 1/2" 1 ML MISC 1 four times per day INSULIN SYRINGE-NEEDLE U-100 95698289926 Active Maliheh Ziglari [employer] REPORTER Active CYCLOBENZAPRINE HCL 10 MG TABS 1 tablet by mouth three times daily, scheduled CYCLOBENZAPRINE HCL 75044308976 Active Alina Castaneda MD PhD Active TOLTERODINE TARTRATE 2 MG TABS 1 pill twice daily, for bladder TOLTERODINE TARTRATE 75090577513 Active Alina Castaneda MD PhD Active DETROL LA 4 MG [id number] Take 1 tablet by mouth daily TOLTERODINE TARTRATE 98961182517 No Longer Active Alina Castaneda MD PhD Active HYDROCODONE-ACETAMINOPHEN 5-325 MG TABS 2 tabs by mouth three times daily as needed for pain HYDROCODONE-ACETAMINOPHEN 38272270396 Active Alina Castaneda MD PhD Active TERESE CONTOUR TEST STRP monitor blood sugars 3x/day GLUCOSE BLOOD 96127132658 No Longer Active Alina Castaneda MD PhD Active EQL TRUETEST TEST STRP Test blood sugar TID GLUCOSE BLOOD 63979315739 No Longer Active Alina Castaneda MD PhD Active FLUTICASONE PROPIONATE 50 MCG/ACT SUSP 2 sprays each nostril qDay x 30 days FLUTICASONE PROPIONATE 59361053361 No Longer Active Alina Castaneda MD PhD Active IBUPROFEN 200 MG TABS 1 Q 6 hr. PRN IBUPROFEN 25287717940 No Longer Active Alina Castaneda MD PhD Active NIACIN ER 500 MG CR-TABS 4 qHS (for triglycerides) NIACIN 57028825123 No Longer Active Alina Castaneda MD PhD Active TRUETEST TEST STRP check sugars 4x/day GLUCOSE BLOOD 53450018827 Active Alina Castaneda MD PhD Active ALFUZOSIN HCL ER 10 MG [id number]-[id number] 1 tablet daily ALFUZOSIN HCL 22660770335 Active Vanessa Hickey MD Active CLONAZEPAM 1 MG TABS 1 pill by mouth three times daily CLONAZEPAM 18086144080 Active Alina Castaneda MD PhD Active LOVAZA 1 GM CAPS 4 daily (for triglycerides) [id number] ETHYL ESTERS 20664831772 Active Alina Castaneda MD PhD Active SAPHRIS 5 MG SUBL by mouth twice a day ASENAPINE MALEATE 70100999732 No Longer Active Maljohn Mackenzieglari [employer] REPORTER Active ACETAMINOPHEN 500 MG TABS 2 Q 6 hr. PRN ACETAMINOPHEN 45403698467 No Longer Active Maliheh Ziglari [employer] REPORTER Active VERAPAMIL HCL ER 120 MG [id number]-[id number] 1 pill by mouth twice a day, for headache prevention/control VERAPAMIL HCL 93594164403 Active Alina Castaneda MD PhD Active ORPHENADRINE CITRATE ER 100 MG BC83P-KPR 1 every 12 hr. as needed ORPHENADRINE CITRATE 15786367843 No Longer Active Alina Castaneda MD PhD Active NIACIN CR 500 MG CR-TABS 2 qHS NIACIN 63462847810 No Longer Active Alina Castaneda MD PhD Active AMOXICILLIN 500 MG CAPS 2 po BID x 10 days AMOXICILLIN 32959337390 No Longer Active Alina Castaneda MD PhD Active HYDROCODONE-ACETAMINOPHEN 7.5-325 MG TABS 1 four times a day as needed for pain HYDROCODONE-ACETAMINOPHEN 56095852830 No Longer Active Alina Castaneda MD PhD Active METFORMIN HCL ER 500 MG [id number]-OWE Take three tablets by mouth everyday METFORMIN HCL 34725959535 Active Alina Castaneda MD PhD Active DOXEPIN HCL 10 MG CAPS Take 1 tablet by mouth daily DOXEPIN HCL 58341034144 No Longer Active Salina Han A Active NAVANE 10 MG CAPS 1/2 tablet twice a day THIOTHIXENE No Longer Active Salina Han [facility] Active CYCLOBENZAPRINE HCL 10 MG TABS 1/2 tablet by mouth every 8 hours as needed for muscle spasms CYCLOBENZAPRINE HCL 09194614528 No Longer Active Alina Castaneda MD PhD Active BACTROBAN 2 % CREAM apply to ear and nose twice daily MUPIROCIN CALCIUM 28995146934 No Longer Active Alina Castaneda MD PhD Active HYDROCODONE-ACETAMINOPHEN 5-325 MG TABS take one tablet by mouth every four hours as needed for pain HYDROCODONE-ACETAMINOPHEN 23244677215 No Longer Active Alina Castaneda MD PhD Active ZOLPIDEM TARTRATE 10 MG TABS take at bedtime ZOLPIDEM TARTRATE 13408551843 Active Alina Castaneda MD PhD Active ZYPREXA 5 MG TABS take one tablet by mouth every evening OLANZAPINE 51371597062 No Longer Active Alina Castaneda MD PhD Active ALBUTEROL SULFATE 0.083 % NEBU SOLN one vial per nebulizer TID and PRN cough/ soa ALBUTEROL SULFATE 62873286095 No Longer Active Alina Castaneda MD PhD Active GUAIFENESIN 600 MG [id number] 1 tablet by mouth twice daily if needed for cough GUAIFENESIN 91157451530 No Longer Active Marvel MARROQUIN Active AZITHROMYCIN 500 MG SOLR 1 po q day AZITHROMYCIN 09249854615 No Longer Active Alina Castaneda MD PhD Active METOPROLOL SUCCINATE 100 MG [id number]-YKO 1 by mouth daily for blood pressure METOPROLOL SUCCINATE 85889172684 Active Alina Castaneda MD PhD Active PROMETHAZINE-CODEINE 6.25-10 MG/5ML SYRP 1 tsp po q 6 hours prn cough PROMETHAZINE-CODEINE 34249911725 No Longer Active Alina Castaneda MD PhD Active CEFDINIR 300 MG CAPS by mouth twice a day CEFDINIR 09048507657 No Longer Active Alina Castaneda MD PhD Active METFORMIN HCL 500 MG PS19D-DTQ Take 3 tablets by mouth everyday METFORMIN HCL 41189334341 No Longer Active Alina Castaneda MD PhD Active LEVEMIR 100 UNIT/ML SOLN 90 units SQ qHS INSULIN DETEMIR 26471936006 No Longer Active Marvel MARROQUIN Active TOPROL XL 100 MG GS08Z-SPP 1 @ HS METOPROLOL SUCCINATE 55163431436 No Longer Active Marvel MARROQUIN Active ALLOPURINOL 300 MG TABS Take one by mouth daily ALLOPURINOL 62934151107 Active Alina Castaneda MD PhD Active ZYPREXA 10 MG TABS Take one by mouth daily OLANZAPINE 27166532324 No Longer Active Alina Castaneda MD PhD Active NOVOLOG 100 UNIT/ML SOLN 40 units with every meal INSULIN ASPART 21377749082 No Longer Active Alina Castaneda MD PhD Active VERAPAMIL HCL CR 120 MG TAB CR 1 qPM VERAPAMIL HCL 45968558915 No Longer Active Salina Han [facility] Active ZYPREXA 15 MG TABS Take 1 tablet by mouth daily OLANZAPINE 54117783035 No Longer Active Marvel MARROQUIN Active LISINOPRIL 20 MG TABS 1 BID LISINOPRIL 63215832702 Active Alina Castaneda MD PhD Active ALBUTEROL SULFATE (2.5 MG/3ML) 0.083% NEBU 1 neb tid and prn cough ALBUTEROL SULFATE 44162811149 No Longer Active Alina Castaneda MD PhD Active FLUVOXAMINE MALEATE 100 MG TABS Take one (1) tablet by mouth am, 05/25 at noon, 1 pm FLUVOXAMINE MALEATE 06598455489 Active Alina Castaneda MD PhD Active TRAVATAN Z 0.004 % SOLN 1 gtt each eye daily TRAVOPROST 15284882145 Active CRYSTAL Suarez Active LANTUS 100 UNIT/ML SOLN 60 units sq q hs INSULIN GLARGINE 16673190932 No Longer Active CRYSTAL Suarez Active ALBUTEROL SULFATE (2.5 MG/3ML) 0.083% NEBU 1 neb tid and prn cough ALBUTEROL SULFATE (2.5 MG/3ML) 0.083% NEBU 366522 ALBUTEROL SULFATE Inactive ZYPREXA 15 MG TABS Take 1 tablet by mouth daily ZYPREXA 15 MG TABS 942200 OLANZAPINE Inactive VERAPAMIL HCL CR 120 MG TAB CR 1 qPM VERAPAMIL HCL CR 120 MG TAB CR VERAPAMIL HCL Inactive ZYPREXA 10 MG TABS Take one by mouth daily ZYPREXA 10 MG TABS 251748 OLANZAPINE Inactive TOPROL XL 100 MG [id number] 1 @ HS TOPROL XL 100 MG NO17L-MJT METOPROLOL SUCCINATE Inactive LEVEMIR 100 UNIT/ML SOLN 90 units SQ qHS LEVEMIR 100 UNIT/ML SOLN INSULIN DETEMIR Inactive PROMETHAZINE-CODEINE 6.25-10 MG/5ML SYRP 1 tsp po q 6 hours prn cough PROMETHAZINE-CODEINE 6.25-10 MG/5ML SYRP 730558 PROMETHAZINE- CODEINE Inactive GUAIFENESIN 600 MG AQ31A-HXR 1 tablet by mouth twice daily if needed for cough GUAIFENESIN 600 MG GF40A-RVX GUAIFENESIN Inactive ALBUTEROL SULFATE 0.083 % NEBU SOLN one vial per nebulizer TID and PRN cough/ soa ALBUTEROL SULFATE 0.083 % [facility] 212116 ALBUTEROL SULFATE Inactive ZYPREXA 5 MG TABS take one tablet by mouth every evening ZYPREXA 5 MG TABS 158274 OLANZAPINE Inactive HYDROCODONE-ACETAMINOPHEN 5-325 MG TABS take one tablet by mouth every four hours as needed for pain HYDROCODONE-ACETAMINOPHEN 5-325 MG TABS 356795 HYDROCODONE-ACETAMINOPHEN Inactive BACTROBAN 2 % CREAM apply to ear and nose twice daily BACTROBAN 2 % CREAM 828395 MUPIROCIN CALCIUM Inactive CYCLOBENZAPRINE HCL 10 MG TABS 1/2 tablet by mouth every 8 hours as needed for muscle spasms CYCLOBENZAPRINE HCL 10 MG TABS 822097 CYCLOBENZAPRINE HCL Inactive NAVANE 10 MG CAPS 1/2 tablet twice a day NAVANE 10 MG CAPS THIOTHIXENE Inactive DOXEPIN HCL 10 MG CAPS Take 1 tablet by mouth daily DOXEPIN HCL 10 MG CAPS 5334221 DOXEPIN HCL Inactive HYDROCODONE-ACETAMINOPHEN 7.5-325 MG TABS 1 four times a day as needed for pain HYDROCODONE-ACETAMINOPHEN 7.5-325 MG TABS 048317 HYDROCODONE-ACETAMINOPHEN Inactive NIACIN CR 500 MG CR-TABS 2 qHS NIACIN CR 500 MG CR- TABS NIACIN Inactive ORPHENADRINE CITRATE ER 100 MG LW97Z-DBM 1 every 12 hr. as needed ORPHENADRINE CITRATE ER 100 MG [id number]-ZHH ORPHENADRINE CITRATE Inactive ACETAMINOPHEN 500 MG TABS 2 Q 6 hr. PRN ACETAMINOPHEN 500 MG TABS 833568 ACETAMINOPHEN Inactive SAPHRIS 5 MG SUBL by mouth twice a day SAPHRIS 5 MG SUBL ASENAPINE MALEATE Inactive NIACIN ER 500 MG CR-TABS 4 qHS (for triglycerides) NIACIN ER 500 MG CR-TABS NIACIN Inactive IBUPROFEN 200 MG TABS 1 Q 6 hr. PRN IBUPROFEN 200 MG TABS 940552 IBUPROFEN Inactive FLUTICASONE PROPIONATE 50 MCG/ACT SUSP 2 sprays each nostril qDay x 30 days FLUTICASONE PROPIONATE 50 MCG/ACT SUSP 299049 FLUTICASONE PROPIONATE Inactive EQL TRUETEST TEST STRP Test blood sugar TID EQL TRUETEST TEST STRP GLUCOSE BLOOD Inactive TERESE CONTOUR TEST STRP monitor blood sugars 3x/day TERESE CONTOUR TEST STRP GLUCOSE BLOOD Inactive DETROL LA 4 MG MW30Z-ZYK Take 1 tablet by mouth daily DETROL LA 4 MG [id number]-XZP TOLTERODINE TARTRATE Inactive ZYPREXA 7.5 MG TABS 1 at HS ZYPREXA 7.5 MG TABS 094264 OLANZAPINE Inactive THIOTHIXENE 5 MG CAPS by mouth twice a day THIOTHIXENE 5 MG CAPS 325236 THIOTHIXENE Inactive UROXATRAL 10 MG WD23D-MPJ Take 1 tablet by mouth daily UROXATRAL 10 MG SI54U-HVW ALFUZOSIN HCL Inactive CEFDINIR 300 MG CAPS by mouth twice a day CEFDINIR 300 MG CAPS 264365 CEFDINIR Inactive AZITHROMYCIN 500 MG SOLR 1 po q day AZITHROMYCIN 500 MG SOLR 584393 AZITHROMYCIN Inactive AMOXICILLIN 500 MG CAPS 2 po BID x 10 days AMOXICILLIN 500 MG CAPS 479025 AMOXICILLIN Inactive Immunizations Vaccine Administration Date Value [...] Fluvirin, Fluarix, Agriflu(>=18 yo)) Fluzone (>3 yrs.) [[id number]] Influenza, seasonal, injectable pneumococcal immunization administered Pneumovax [...] E&M - 3141-9 248.56 [lb_av] Weight Measured Diagnostic Results Date Name Value Unit Range Description Lab Report: Basic Metabolic Panel, HGBA1C - Chemistry sodium, serum 130 mmol/L 805-367 4213/06/09 potassium, serum 4.0 mmol/L 3.5-5.2 chloride, serum [...] 6.0 mg/dL 2.6-7.2 sodium, serum 130 mmol/L 508-047 3919/05/01 potassium, serum 5.2 mmol/L 3.5-5.2 chloride, serum [...] 0.40 mg/dL 0.00-1.00 cholesterol, serum 151 mg/dL 563-477 6171/05/01 triglyceride, serum, fasting 356 mg/dL 30-200 HDL [...] HGBA1C - Chemistry sodium, serum 126 mmol/L 005-714 1287/02/26 potassium, serum 4.8 mmol/L 3.5-5.2 chloride, serum [...] mg/dL Encounters Code Encounter Date Provider Facility CPT-32350 Level 3 Est. [facility]PT-17299 Level 3 Est. Patient 12:02:49 CDT Alina Castaneda MD [facility]-70627 Level 3 Est. Patient 19:17:33 CDT Alina Castaneda MD PhD [facility] CPT-31367 Level 3 Est. Patient 13:19:10 CDT [facility] CPT-51771 Level 3 Est. Patient 08:20:05 CDT Alina Castaneda MD PhD [facility]-21235 Level 3 Est. Patient 15:17:18 CDT Alina Castaneda MD PhD [facility] [place]657 Level 3 Est. Patient 14:25:36 ADJUNCT PSYCHOLOGY INSTRUCTOR [facility] CPT-42421 Level 3 Est. Patient 10:09:15 ADJUNCT PSYCHOLOGY INSTRUCTOR Marvel [facility]-95754 Level 3 Est. Patient 21:28:43 CDT Alina Castaneda MD [facility]-90169 Level 3 Est. Patient 15:20:11 [facility] 4 Est. Patient 19:08:12 CDT Alina Castaneda MD [facility]-72189 Level 3 Est. Patient 15:06:39 CDT [facility]-20654 Level 4 Est. Patient 17:48:15 CDT Alina Castaneda MD [facility]-98528 Level 3 Est. Patient 14:53:49 CDT Alina Castaneda MD [facility]-75728 Level 3 Est. Patient 09:35:16 CDT Alina Castaneda MD [facility]-33279 Level 3 Est. Patient 12:23:22 CDT Alina Castaneda MD [facility]-30031 Level 3 Est. Patient 16:19:15 CDT Alina Castaneda MD [facility]-99436 Level 3 Est. Patient 21:39:56 ADJUNCT PSYCHOLOGY INSTRUCTOR Alina Castaneda MD [facility]-83620 Level 4 Est. Patient 14:12:56 ADJUNCT PSYCHOLOGY INSTRUCTOR Alina Castaneda MD [facility]-79019 Level 2 Est. Patient 15:34:57 ADJUNCT PSYCHOLOGY INSTRUCTOR Alina Castaneda MD [facility]-39394 Level 3 Est. Patient 12:17:04 ADJUNCT PSYCHOLOGY INSTRUCTOR Alina Castaneda MD [facility]-16947 Level 3 Est. Patient 09:18:18 ADJUNCT PSYCHOLOGY INSTRUCTOR [facility]-52976 Level 2 Est. Patient 21:50:24 CDT Alina Castaneda MD [facility]-17594 Level 3 Est. Patient 09:17:28 CDT Marvel [facility]-61917 Level 4 Est. Patient 18:54:02 CDT Alina Castaneda MD [facility]-68411 Level 3 Est. Patient 10:47:10 CDT Alina Castaneda MD [facility]43811 Level 3 Est. Patient 09:22:20 CDT Marvel [facility]-78388 Level 3 Est. [facility]:39[facility]-72674 Level 3 Est. Patient 16:05:16 CDT Alina Castaneda MD PhD [facility]-42612 Level 3 Est. Patient 00:29:15 CDT Alina Castaneda MD [facility]-58396 Level 3 Est. Patient 10:49:22 ADJUNCT PSYCHOLOGY INSTRUCTOR [facility]-03759 Level 3 Est. Patient 21:30:19 ADJUNCT PSYCHOLOGY INSTRUCTOR Alina Castaneda MD [facility]-36132 Level 4 Est. Patient 17:04:11 ADJUNCT PSYCHOLOGY INSTRUCTOR Marvel [facility]-79484 Level 3 Est. Patient 15:34:11 ADJUNCT PSYCHOLOGY INSTRUCTOR Marvel [facility]-69908 Level 2 Est. Patient 12:51:58 ADJUNCT PSYCHOLOGY INSTRUCTOR Alina Castaneda MD [facility]38014 Level 3 Est. Patient 13:20:01 ADJUNCT PSYCHOLOGY INSTRUCTOR Alina Castaneda MD PhD [facility] CPT-69649 Level 3 Est. Patient 09:23:35 CDT Alina Castaneda MD PhD [facility] Procedures Code Procedure Name Date Entry Date Standard Description CPT-55433 Administration single or combination vaccine inc oral 11 :49:51 CDT CPT-93425 Pneumovax 11:49:51 CDT CPT-88493 Ribs unilateral 2V 12:37:22 ADJUNCT PSYCHOLOGY INSTRUCTOR CPT-29122 Chest 2V Frontal and Lat 17:15:26 CDT CPT-85839 Abx/Therapy Injection 18:54:02 CDT CPT-J0696 Rocephin 1000 mg (Ceftriaxone) 16:00:32 CDT CPT-24645 Chest 2V Frontal and Lat 15:26:45 CDT CPT-88642 Chest 2V Frontal and Lat 10:23:27 CDT CPT-15478 Venipuncture Draw Fee 10:11:00 CDT CPT-10756 Administration single or combination vaccine inc oral 11 :56:38 CDT CPT-68282 Influenza split virus > age 3 11:56:38 CDT CPT-27601 Venipuncture Draw Fee 08:49:54 ADJUNCT PSYCHOLOGY INSTRUCTOR CPT-01948 EKG Trac and Interp 17:54:19 ADJUNCT PSYCHOLOGY INSTRUCTOR
--- OUTSIDE RECORDS SUMMARY | 2018-07-02 19:37 | XMS REPORT | Clinical Summary ---
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 Active Alina Castaneda MD PhD Recurrent isolated sleep paralysis SPECIAL SCREENING FOR MALIGNANT NEOPLASM OF PROSTATE V76.44 Resolved Alina Castaneda MD PhD Screening for malignant neoplasms of prostate Hypoglycemia 251.2 Active Zaineh 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 LOPEZ Hypoglycemia, unspecified Diabetes mellitus, type II 250.00 Active Maliheh Ziglari [employer]OUND SYSTEM[employer] ENGINEER Diabetes mellitus without mention of complication, type II or unspecified type, not stated as uncontrolled Dizziness 780.4 Active Alina Castaneda MD PhD Dizziness and giddiness Confusion 298.9 Active Alina Castaneda MD PhD Unspecified psychosis INCONTINENCE, URGE 788.31 Active Vanessa Hickey MD Urge incontinence Lower Urinary Tract Symptoms 788.99 Active Vanessa Hickey MD Other symptoms involving urinary system WOUND, OPEN, NOSE ICD-873.20 Inactive Alina Castaneda [...] by mouth nightly, for pain MORPHINE SULFATE 98812640678 Active Rhett Luther DO Active LATUDA 80 MG TABS 1 tab by mouth every evening LURASIDONE HCL 68051921239 Active Alina Castaneda MD PhD Active UROXATRAL 10 MG [id number] Take 1 tablet by mouth daily ALFUZOSIN HCL 19713260013 No Longer Active Alina Castaneda MD PhD Active THIOTHIXENE 5 MG CAPS by mouth twice a day THIOTHIXENE 39061513638 No Longer Active Alina Castaneda MD PhD Active ZYPREXA 7.5 MG TABS 1 at HS OLANZAPINE 59692991802 No Longer Active Alina Castaneda MD PhD Active HUMALOG 100 UNIT/ML SOLN Take 20 units with breakfast, 10u with lunch and suppetr. INSULIN LISPRO (HUMAN) 61460031546 Active Maliheh Ziglari [employer] ENGINEER Active LEVEMIR 100 UNIT/ML SOLN Take 70 u at 7-8pm INSULIN DETEMIR 77073212302 Active Maliheh Ziglari [employer]OUND SYSTEM[employer] ENGINEER Active BD INSULIN SYRINGE 28G X 1/2" 1 ML MISC 1 four times per day INSULIN SYRINGE-NEEDLE U-100 36047860548 Active Maliheh Ziglari [employer] ENGINEER Active CYCLOBENZAPRINE HCL 10 MG TABS 1 tablet by mouth three times daily, scheduled CYCLOBENZAPRINE HCL 24330412336 Active Alina Castaneda MD PhD Active TOLTERODINE TARTRATE 2 MG TABS 1 pill twice daily, for bladder TOLTERODINE TARTRATE 54118166835 Active Alina Castaneda MD PhD Active DETROL LA 4 MG [id number] Take 1 tablet by mouth daily TOLTERODINE TARTRATE 07899981707 No Longer Active Alina Castaneda MD PhD Active HYDROCODONE-ACETAMINOPHEN 5-325 MG TABS 2 tabs by mouth three times daily as needed for pain HYDROCODONE-ACETAMINOPHEN 18739073035 Active Rhett W Ashkan DO Active TERESE CONTOUR TEST STRP monitor blood sugars 3x/day GLUCOSE BLOOD 18997130207 No Longer Active Alina Castaneda MD PhD Active EQL TRUETEST TEST STRP Test blood sugar TID GLUCOSE BLOOD 58523662966 No Longer Active Alina Castaneda MD PhD Active FLUTICASONE PROPIONATE 50 MCG/ACT SUSP 2 sprays each nostril qDay x 30 days FLUTICASONE PROPIONATE 84772999320 No Longer Active Alina Castaneda MD PhD Active IBUPROFEN 200 MG TABS 1 Q 6 hr. PRN IBUPROFEN 11424758260 No Longer Active Alina Castaneda MD PhD Active NIACIN ER 500 MG CR-TABS 4 qHS (for triglycerides) NIACIN 92170059968 No Longer Active Alina Castaneda MD PhD Active TRUETEST TEST STRP check sugars 4x/day GLUCOSE BLOOD 84038261703 Active Marvel MARROQUIN Active ALFUZOSIN HCL ER 10 MG [id number] 1 tablet daily ALFUZOSIN HCL 23133976211 Active Vanessa Hickey MD Active CLONAZEPAM 1 MG TABS 1 pill by mouth three times daily CLONAZEPAM 66234377461 Active Alina Castaneda MD PhD Active LOVAZA 1 GM CAPS 4 daily (for triglycerides) ESUCK-0-MEKY ETHYL ESTERS 76422677335 Active Alina Castaneda MD PhD Active SAPHRIS 5 MG SUBL by mouth twice a day ASENAPINE MALEATE 07298230009 No Longer Active Mravel MENDOZAP Active ACETAMINOPHEN 500 MG TABS 2 Q 6 hr. PRN ACETAMINOPHEN 89478142626 No Longer Active Marvel MENDOZAP Active VERAPAMIL HCL ER 120 MG [id number]-LHA 1 pill by mouth twice a day, for headache prevention/control VERAPAMIL HCL 65797075248 Active Alina Castaneda MD PhD Active ORPHENADRINE CITRATE ER 100 MG [id number] 1 every 12 hr. as needed ORPHENADRINE CITRATE 99077790880 No Longer Active Alina Castaneda MD PhD Active NIACIN CR 500 MG CR-TABS 2 qHS NIACIN 70349664211 No Longer Active Alina Castaneda MD PhD Active AMOXICILLIN 500 MG CAPS 2 po BID x 10 days AMOXICILLIN 37622793649 No Longer Active Alina Castaneda MD PhD Active HYDROCODONE-ACETAMINOPHEN 7.5-325 MG TABS 1 four times a day as needed for pain HYDROCODONE-ACETAMINOPHEN 88165740288 No Longer Active Alina Castaneda MD PhD Active METFORMIN HCL ER 500 MG KV95Y-LNF Take three tablets by mouth everyday METFORMIN HCL 00991564641 Active Alina Castaneda MD PhD Active DOXEPIN HCL 10 MG CAPS Take 1 tablet by mouth daily DOXEPIN HCL 18307368202 No Longer Active Salina Han [facility] Active NAVANE 10 MG CAPS 1/2 tablet twice a day THIOTHIXENE No Longer Active Salina Han [facility] Active CYCLOBENZAPRINE HCL 10 MG TABS 1/2 tablet by mouth every 8 hours as needed for muscle spasms CYCLOBENZAPRINE HCL 57469536666 No Longer Active Alina Castaneda MD PhD Active BACTROBAN 2 % CREAM apply to ear and nose twice daily MUPIROCIN CALCIUM 33382179575 No Longer Active Alina Castaneda MD PhD Active HYDROCODONE-ACETAMINOPHEN 5-325 MG TABS take one tablet by mouth every four hours as needed for pain HYDROCODONE-ACETAMINOPHEN 35102770408 No Longer Active Alina Castaneda MD PhD Active ZOLPIDEM TARTRATE 10 MG TABS take at bedtime ZOLPIDEM TARTRATE 34566232336 Active Alina Castaneda MD PhD Active ZYPREXA 5 MG TABS take one tablet by mouth every evening OLANZAPINE 03973433288 No Longer Active Alina Castaneda MD PhD Active ALBUTEROL SULFATE 0.083 % NEBU SOLN one vial per nebulizer TID and PRN cough/ soa ALBUTEROL SULFATE 16244692063 No Longer Active Alina Castaneda MD PhD Active GUAIFENESIN 600 MG SS90V-SRQ 1 tablet by mouth twice daily if needed for cough GUAIFENESIN 74303170192 No Longer Active Marvel MARROQUIN Active AZITHROMYCIN 500 MG SOLR 1 po q day AZITHROMYCIN 36577718358 No Longer Active Alina Castaneda MD PhD Active METOPROLOL SUCCINATE 100 MG JZ74W-HKO 1 by mouth daily for blood pressure METOPROLOL SUCCINATE 66333803345 Active Alina Castaneda MD PhD Active PROMETHAZINE-CODEINE 6.25-10 MG/5ML SYRP 1 tsp po q 6 hours prn cough PROMETHAZINE-CODEINE 19978577900 No Longer Active Alina Castaneda MD PhD Active CEFDINIR 300 MG CAPS by mouth twice a day CEFDINIR 93409194628 No Longer Active Alina Castaneda MD PhD Active METFORMIN HCL 500 MG CP41Y-VXH Take 3 tablets by mouth everyday METFORMIN HCL 25843418809 No Longer Active Alina Castaneda MD PhD Active LEVEMIR 100 UNIT/ML SOLN 90 units SQ qHS INSULIN DETEMIR 07893905439 No Longer Active Marvel MARROQUIN Active TOPROL XL 100 MG [id number]-YXT 1 @ HS METOPROLOL SUCCINATE 82305834482 No Longer Active Marvel MARROQUIN Active ALLOPURINOL 300 MG TABS Take one by mouth daily ALLOPURINOL 98168380110 Active Alina Castaneda MD PhD Active ZYPREXA 10 MG TABS Take one by mouth daily OLANZAPINE 14228400419 No Longer Active Alina Castaneda MD PhD Active NOVOLOG 100 UNIT/ML SOLN 40 units with every meal INSULIN ASPART 70405598232 No Longer Active Alina Castaneda MD PhD Active VERAPAMIL HCL CR 120 MG TAB CR 1 qPM VERAPAMIL HCL 39255495317 No Longer Active Salina Han [facility] Active ZYPREXA 15 MG TABS Take 1 tablet by mouth daily OLANZAPINE 09819589779 No Longer Active Marvel Charles [employer]OUND [employer]S ENGINEER Active LISINOPRIL 20 MG TABS 1 BID LISINOPRIL 32119264442 Active Alina Castaneda MD PhD Active ALBUTEROL SULFATE (2.5 MG/3ML) 0.083% NEBU 1 neb tid and prn cough ALBUTEROL SULFATE 00560162723 No Longer Active Alina Castaneda MD PhD Active FLUVOXAMINE MALEATE 100 MG TABS Take one (1) tablet by mouth am, 05/25 at noon, 1 pm FLUVOXAMINE MALEATE 25104522492 Active Alina Castaneda MD PhD Active TRAVATAN Z 0.004 % SOLN 1 gtt each eye daily TRAVOPROST 46173850599 Active CRYSTAL Suarez Active LANTUS 100 UNIT/ML SOLN 60 units sq q hs INSULIN GLARGINE 11760431125 No Longer Active CRYSTAL Suarez Active ALBUTEROL SULFATE (2.5 MG/3ML) 0.083% NEBU 1 neb tid and prn cough ALBUTEROL SULFATE (2.5 MG/3ML) 0.083% NEBU 276430 ALBUTEROL SULFATE Inactive ZYPREXA 15 MG TABS Take 1 tablet by mouth daily ZYPREXA 15 MG TABS 107030 OLANZAPINE Inactive VERAPAMIL HCL CR 120 MG TAB CR 1 qPM VERAPAMIL HCL CR 120 MG TAB CR VERAPAMIL HCL Inactive ZYPREXA 10 MG TABS Take one by mouth daily ZYPREXA 10 MG TABS 696351 OLANZAPINE Inactive TOPROL XL 100 MG [id number] 1 @ HS TOPROL XL 100 MG [id number]-ISD METOPROLOL SUCCINATE Inactive LEVEMIR 100 UNIT/ML SOLN 90 units SQ qHS LEVEMIR 100 UNIT/ML SOLN INSULIN DETEMIR Inactive PROMETHAZINE-CODEINE 6.25-10 MG/5ML SYRP 1 tsp po q 6 hours prn cough PROMETHAZINE-CODEINE 6.25-10 MG/5ML SYRP 614611 PROMETHAZINE- CODEINE Inactive GUAIFENESIN 600 MG RF84P-WEX 1 tablet by mouth twice daily if needed for cough GUAIFENESIN 600 MG OA40Z-SJV GUAIFENESIN Inactive ALBUTEROL SULFATE 0.083 % NEBU SOLN one vial per nebulizer TID and PRN cough/ soa ALBUTEROL SULFATE 0.083 % NEBU SOLN 967825 ALBUTEROL SULFATE Inactive ZYPREXA 5 MG TABS take one tablet by mouth every evening ZYPREXA 5 MG TABS 654291 OLANZAPINE Inactive HYDROCODONE-ACETAMINOPHEN 5-325 MG TABS take one tablet by mouth every four hours as needed for pain HYDROCODONE-ACETAMINOPHEN 5-325 MG TABS 282074 HYDROCODONE-ACETAMINOPHEN Inactive BACTROBAN 2 % CREAM apply to ear and nose twice daily BACTROBAN 2 % CREAM 256299 MUPIROCIN CALCIUM Inactive CYCLOBENZAPRINE HCL 10 MG TABS 1/2 tablet by mouth every 8 hours as needed for muscle spasms CYCLOBENZAPRINE HCL 10 MG TABS 565516 CYCLOBENZAPRINE HCL Inactive NAVANE 10 MG CAPS 1/2 tablet twice a day NAVANE 10 MG CAPS THIOTHIXENE Inactive DOXEPIN HCL 10 MG CAPS Take 1 tablet by mouth daily DOXEPIN HCL 10 MG CAPS 1887840 DOXEPIN HCL Inactive HYDROCODONE-ACETAMINOPHEN 7.5-325 MG TABS 1 four times a day as needed for pain HYDROCODONE-ACETAMINOPHEN 7.5-325 MG TABS 537158 HYDROCODONE-ACETAMINOPHEN Inactive NIACIN CR 500 MG CR-TABS 2 qHS NIACIN CR 500 MG CR- TABS NIACIN Inactive ORPHENADRINE CITRATE ER 100 MG [id number] 1 every 12 hr. as needed ORPHENADRINE CITRATE ER 100 MG SV20W-FKX ORPHENADRINE CITRATE Inactive ACETAMINOPHEN 500 MG TABS 2 Q 6 hr. PRN ACETAMINOPHEN 500 MG TABS 728199 ACETAMINOPHEN Inactive SAPHRIS 5 MG SUBL by mouth twice a day SAPHRIS 5 MG SUBL ASENAPINE MALEATE Inactive NIACIN ER 500 MG CR-TABS 4 qHS (for triglycerides) NIACIN ER 500 MG CR-TABS NIACIN Inactive IBUPROFEN 200 MG TABS 1 Q 6 hr. PRN IBUPROFEN 200 MG TABS 286660 IBUPROFEN Inactive FLUTICASONE PROPIONATE 50 MCG/ACT SUSP 2 sprays each nostril qDay x 30 days FLUTICASONE PROPIONATE 50 MCG/ACT SUSP 132606 FLUTICASONE PROPIONATE Inactive EQL TRUETEST TEST STRP Test blood sugar TID EQL TRUETEST TEST STRP GLUCOSE BLOOD Inactive TERESE CONTOUR TEST STRP monitor blood sugars 3x/day TERESE CONTOUR TEST STRP GLUCOSE BLOOD Inactive DETROL LA 4 MG [id number]-XHU Take 1 tablet by mouth daily DETROL LA 4 MG [id number]-JPY TOLTERODINE TARTRATE Inactive ZYPREXA 7.5 MG TABS 1 at HS ZYPREXA 7.5 MG TABS 053626 OLANZAPINE Inactive THIOTHIXENE 5 MG CAPS by mouth twice a day THIOTHIXENE 5 MG CAPS 353377 THIOTHIXENE Inactive UROXATRAL 10 MG TP92B-SUE Take 1 tablet by mouth daily UROXATRAL 10 MG DW47A-TQP ALFUZOSIN HCL Inactive CEFDINIR 300 MG CAPS by mouth twice a day CEFDINIR 300 MG CAPS 200281 CEFDINIR Inactive AZITHROMYCIN 500 MG SOLR 1 po q day AZITHROMYCIN 500 MG SOLR 074673 AZITHROMYCIN Inactive AMOXICILLIN 500 MG CAPS 2 po BID x 10 days AMOXICILLIN 500 MG CAPS 833396 AMOXICILLIN Inactive Immunizations Vaccine Administration Date Value [...] Fluvirin, Fluarix, Agriflu(>=18 yo)) Fluzone (>3 yrs.) [[id number]] Influenza, seasonal, injectable pneumococcal immunization administered Pneumovax [...] E&M - 3141-9 259 [lb_av] Weight Measured Diagnostic Results Date Name Value Unit Range Description Lab Report: Basic Metabolic Panel, HGBA1C - Chemistry sodium, serum 130 mmol/L 674-100 9137/06/09 potassium, serum 4.0 mmol/L 3.5-5.2 chloride, serum 92 mmol/L 98-107 carbon dioxide, venous blood 22.1 mmol/L 21.0-32.0 blood glucose 60 mg/dL 65-110 calcium, serum 9.5 mg/dL 8.5-10.1 urea nitrogen, blood 14 mg/dL 7-18 creatinine, serum 1.30 mg/dL 0.60-1.30 hemoglobin A1C, blood, as % of total hemoglobin 6.0 % 4.3-6.0 Lab Report: CBC, CMP, Lipid Panel, TSH, PSA, microalbumin, uric acid - Chemistry cholesterol, serum 151 mg/dL 585-747 7283/05/01 triglyceride, serum, fasting 356 mg/dL 30-200 HDL cholesterol, serum 19 mg/dL 32-96 LDL cholesterol, serum 61 mg/dL 0-130 TSH 2.22 m[iU]/mL 0.36-3.74 prostate specific antigen 0.11 ng/mL 0.00-4.00 albumin/creatinine ratio, urine < 30 mg/g mg/g{creat} 0-29 uric acid, serum 6.0 mg/dL 2.6-7.2 sodium, serum 130 mmol/L 833-017 2022/05/01 potassium, serum 5.2 mmol/L 3.5-5.2 chloride, serum [...] serum, total 0.40 mg/dL 0.00-1.00 Lab Report: CBC, CMP, Lipid Panel, TSH, [...] Panel - Chemistry sodium, serum 127 mmol/L 280-829 6485/10/27 potassium, serum 4.1 mmol/L 3.5-5.2 chloride, serum [...] serum, total 0.40 mg/dL 0.00-1.00 Lab Report: Comp. Metabolic Panel, HGBA1C - Chemistry potassium, serum 4.8 mmol/L 3.5-5.2 chloride, serum [...] % of total hemoglobin 6.9 % 4.3-6.0 sodium, serum 126 mmol/L 136-145 Lab Report: HGBA1C - Chemistry hemoglobin A1C, blood, as % of total hemoglobin 6.3 % 4.3-6.0 Office Visit: Diabetes Visit - Chemistry LDL target level 100 mg/dL HDL cholesterol, serum, target level 35 mg/dL triglyceride, target level 200 mg/dL cholesterol, target level 200 mg/dL cholesterol, target level 200 mg/dL triglyceride, [...] mg/dL Encounters Code Encounter Date Provider Facility CPT-28713 Level 3 Est. Patient 10:01:51 [place] [facility] [place] 3 [place]. Patient 21:54:06 CDT Vanessa Hickey MD [facility] CPT-14856 Level 3 Est. Patient 08:54:46 CDT Alina Castaneda MD [facility] CPT-67528 Level 3 Est. Patient 09:32:11 [place] [facility] [place] Level 3 Est. Patient 12:02:49 CDT Alina Castaneda MD PhD [facility] CPT-48076 Level 3 Est. Patient 19:17:33 CDT Alina Castaneda MD [facility] CPT-43484 Level 3 Est. Patient 13:19:10 CDT [facility] CPT-93054 Level 3 Est. Patient 08:20:05 CDT Alina Castaneda MD PhD [facility] CPT-02267 Level 3 Est. Patient 15:17:18 CDT Alina Castaneda MD [facility]-97545 Level 3 Est. Patient 14:25:36 FARM MANAGER Marvel Charles [facility]-00648 Level 3 Est. Patient 10:09:15 FARM MANAGER Marvel Charles [facility]-90223 Level 3 Est. Patient 21:28:43 CDT Alina Castaneda MD [facility]-26917 Level 3 Est. Patient 15:20:11 CDT Marvel Charles [facility]-74901 Level 4 Est. Patient 19:08:12 CDT Alina Castaneda MD [facility]-04360 Level 3 Est. Patient 15:06:39 CDT Marvel Charles [facility]-72519 Level 4 Est. Patient 17:48:15 CDT Alina Castaneda MD [facility]-37911 Level 3 Est. Patient 14:53:49 CDT Alina Castaneda MD [facility]-26090 Level 3 Est. Patient 09:35:16 CDT Alina Castaneda MD [facility]-42962 Level 3 Est. Patient 12:23:22 CDT Alina Castaneda MD [facility]-27944 Level 3 Est. Patient 16:19:15 CDT Alina Castaneda MD [facility]-95975 Level 3 Est. Patient 21:39:56 FARM MANAGER Alina Castaneda MD [facility]-15036 Level 4 Est. Patient 14:12:56 FARM MANAGER Alina Castaneda MD [facility]-80959 Level 2 Est. Patient 15:34:57 FARM MANAGER Alina Castaneda MD [facility]-11854 Level 3 Est. Patient 12:17:04 FARM MANAGER Alina Castaneda MD [facility]-47592 Level 3 Est. Patient 09:18:18 FARM MANAGER Marvel Charles [facility]-37784 Level 2 Est. Patient 21:50:24 CDT Alina Castaneda MD [facility]28899 Level 3 Est. Patient 09:17:28 CDT Marvel Charles [facility]-99057 Level 4 Est. Patient 18:54:02 CDT Alina Castaneda MD [facility]18608 Level 3 Est. Patient 10:47:10 CDT Alina Castaneda MD [facility]66651 Level 3 Est. Patient 09:22:20 CDT Brooksjohn Charles [facility]-38699 Level 3 Est. Patient 16:39:43 CDT Brookslashondanivia Araceli [facility]-43240 Level 3 Est. Patient 16:05:16 CDT Alina Castaneda MD [facility]-98665 Level 3 Est. Patient 00:29:15 CDT Alina Castaneda MD [facility]-29659 Level 3 Est. Patient 10:49:22 FARM MANAGER Brooksjohn Charles [facility]-15248 Level 3 Est. Patient 21:30:19 FARM MANAGER Alina Castaneda MD [facility]47532 Level 4 Est. Patient 17:04:11 FARM MANAGER Marvel Charles [facility]-26415 Level 3 Est. Patient 15:34:11 FARM MANAGER Marvel [facility]-22959 Level 2 Est. Patient 12:51:58 FARM MANAGER Alina Castaneda MD PhD [facility] CPT-31474 Level 3 Est. Patient 13:20:01 FARM MANAGER Alina Castaneda MD PhD [facility] CPT-05330 Level 3 Est. Patient 09:23:35 CDT Alina Castaneda MD PhD [facility] Procedures Code Procedure Name Date Entry Date Standard Description CPT-95918 Bladder Scan 21:54:06 CDT CPT-G0008 Administration of Influenza Virus Vaccine 13:05:26 CDT CPT-33090 Fluzone Quadrivalent Intramuscular Suspension 0.5 ML 13: 05:26 CDT CPT-14322 Administration single or combination vaccine inc oral 11 :49:51 CDT CPT-86802 Pneumovax 11:49:51 CDT CPT-04892 Ribs unilateral 2V 12:37:22 FARM MANAGER CPT-76989 Chest 2V Frontal and Lat 17:15:26 CDT CPT-54752 Abx/Therapy Injection 18:54:02 CDT CPT-J0696 Rocephin 1000 mg (Ceftriaxone) 16:00:32 CDT CPT-16115 Chest 2V Frontal and Lat 15:26:45 CDT CPT-84916 Chest 2V Frontal and Lat 10:23:27 CDT CPT-18127 Venipuncture Draw Fee 10:11:00 CDT CPT-77977 Administration single or combination vaccine inc oral 11 :56:38 CDT CPT-43670 Influenza split virus > age 3 11:56:38 CDT CPT-39058 Venipuncture Draw Fee 08:49:54 FARM MANAGER CPT-95557 EKG Trac and Interp 17:54:19 FARM MANAGER
--- OUTSIDE RECORDS SUMMARY | 2018-07-02 19:38 | XMS REPORT | Clinical Summary ---
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 Alina Casatneda MD PhD Recurrent isolated sleep paralysis SPECIAL SCREENING FOR MALIGNANT NEOPLASM OF PROSTATE V76.44 Active Joanie Babcock Screening for malignant neoplasms of prostate WOUND, OPEN, NOSE ICD-873.20 Inactive Alina Castaneda [...] HEMATOMA ICD-432.1 Inactive Alina Castaneda MD PhD Medication List Medication Instructions Start Date Stop Date Generic Name ND Status Provider Patient Instruction CYCLOBENZAPRINE HCL 10 MG TABS 1 tablet by mouth three times daily, scheduled CYCLOBENZAPRINE HCL 39084715053 Active Alina Castaneda MD PhD Active HUMALOG 100 UNIT/ML SOLN take 40u with each meal INSULIN LISPRO (HUMAN) 25377995405 Active Alina Castaneda MD PhD Active TOLTERODINE TARTRATE 2 MG TABS 1 pill twice daily, for bladder TOLTERODINE TARTRATE 16777473127 Active Alina Castaneda MD PhD Active DETROL LA 4 MG [id number]-QKP Take 1 tablet by mouth daily TOLTERODINE TARTRATE 90472380341 No Longer Active Alina Castaneda MD PhD Active HYDROCODONE-ACETAMINOPHEN 5-325 MG TABS 2 tabs by mouth three times daily as needed for pain HYDROCODONE-ACETAMINOPHEN 02168118261 Active Alina Castaneda MD PhD Active TERESE CONTOUR TEST STRP monitor blood sugars 3x/day GLUCOSE BLOOD 82152930985 No Longer Active Alina Castaneda MD PhD Active EQL TRUETEST TEST STRP Test blood sugar TID GLUCOSE BLOOD 65538041579 No Longer Active Alina Castaneda MD PhD Active FLUTICASONE PROPIONATE 50 MCG/ACT SUSP 2 sprays each nostril qDay x 30 days FLUTICASONE PROPIONATE 07998813191 No Longer Active Alina Castaneda MD PhD Active IBUPROFEN 200 MG TABS 1 Q 6 hr. PRN IBUPROFEN 06415353639 No Longer Active Alina Castaneda MD PhD Active NIACIN ER 500 MG CR-TABS 4 qHS (for triglycerides) NIACIN 72601868949 No Longer Active Alina Castaneda MD PhD Active LEVEMIR 100 UNIT/ML SOLN Take 100u at 7-8pm INSULIN DETEMIR 67482642866 Active Alina Castaneda MD PhD Active TRUETEST TEST STRP check sugars 4x/day GLUCOSE BLOOD 45240113759 Active Alina Castaneda MD PhD Active ALFUZOSIN HCL ER 10 MG [id number] 1 tablet daily ALFUZOSIN HCL 39642994426 Active Vanessa Hickey MD Active CLONAZEPAM 1 MG TABS 1 pill by mouth three times daily CLONAZEPAM 16176204883 Active Alina Castaneda MD PhD Active LOVAZA 1 GM CAPS 4 daily (for triglycerides) [id number] ETHYL ESTERS 38845798359 Active Alina Castaneda MD PhD Active SAPHRIS 5 MG SUBL by mouth twice a day ASENAPINE MALEATE 02417635029 No Longer Active Maljohn Ziglari MEDICAL TECHNOLOGIST Active ACETAMINOPHEN 500 MG TABS 2 Q 6 hr. PRN ACETAMINOPHEN 18149076049 No Longer Active Maljohn Mackenzieglari MEDICAL TECHNOLOGIST Active VERAPAMIL HCL ER 120 MG [id number]-ZOE 1 pill by mouth twice a day, for headache prevention/control VERAPAMIL HCL 48138060104 Active Alina Castaneda MD PhD Active ORPHENADRINE CITRATE ER 100 MG [id number]-MFC 1 every 12 hr. as needed ORPHENADRINE CITRATE 53601863975 No Longer Active Alina Castaneda MD PhD Active NIACIN CR 500 MG CR-TABS 2 qHS NIACIN 27604276895 No Longer Active lAina Castaneda MD PhD Active AMOXICILLIN 500 MG CAPS 2 po BID x 10 days AMOXICILLIN 79637892404 No Longer Active Alina Castaneda MD PhD Active ZYPREXA 7.5 MG TABS 1 at HS OLANZAPINE 66665719211 Active Alina Castaneda MD PhD Active THIOTHIXENE 5 MG CAPS by mouth twice a day THIOTHIXENE 32342098436 Active Alina Castaneda MD PhD Active HYDROCODONE-ACETAMINOPHEN 7.5-325 MG TABS 1 four times a day as needed for pain HYDROCODONE-ACETAMINOPHEN 53620628391 No Longer Active Alina Castaneda MD PhD Active METFORMIN HCL ER 500 MG [id number]-MYQ Take three tablets by mouth everyday METFORMIN HCL 90548075417 Active Zainnivia Araceli MEDICAL TECHNOLOGIST Active DOXEPIN HCL 10 MG CAPS Take 1 tablet by mouth daily DOXEPIN HCL 54534779820 No Longer Active Salina Han A Active NAVANE 10 MG CAPS 1/2 tablet twice a day THIOTHIXENE No Longer Active Salina Han [facility] Active CYCLOBENZAPRINE HCL 10 MG TABS 1/2 tablet by mouth every 8 hours as needed for muscle spasms CYCLOBENZAPRINE HCL 19891675579 No Longer Active Alina Castaneda MD PhD Active BACTROBAN 2 % CREAM apply to ear and nose twice daily MUPIROCIN CALCIUM 79891321557 No Longer Active Alina Castaneda MD PhD Active HYDROCODONE-ACETAMINOPHEN 5-325 MG TABS take one tablet by mouth every four hours as needed for pain HYDROCODONE-ACETAMINOPHEN 99217423872 No Longer Active Alina Castaneda MD PhD Active ZOLPIDEM TARTRATE 10 MG TABS take at bedtime ZOLPIDEM TARTRATE 87509327132 Active Alina Castaneda MD PhD Active ZYPREXA 5 MG TABS take one tablet by mouth every evening OLANZAPINE 08720593413 No Longer Active Alina Castaneda MD PhD Active BD INSULIN SYRINGE 28G X 1/2" 1 ML MISC use as directed INSULIN SYRINGE -NEEDLE U-100 27975062718 Active Alina Castaneda MD PhD Active ALBUTEROL SULFATE 0.083 % NEBU SOLN one vial per nebulizer TID and PRN cough/ soa ALBUTEROL SULFATE 76028743291 No Longer Active Alina Castaneda MD PhD Active GUAIFENESIN 600 MG [id number]-WGJ 1 tablet by mouth twice daily if needed for cough GUAIFENESIN 06645696400 No Longer Active Marvel MARROQUIN Active AZITHROMYCIN 500 MG SOLR 1 po q day AZITHROMYCIN 19161741491 No Longer Active Alina Castaneda MD PhD Active METOPROLOL SUCCINATE 100 MG [id number]-UYC 1 by mouth daily for blood pressure METOPROLOL SUCCINATE 02464121759 Active Alina Castaneda MD PhD Active PROMETHAZINE-CODEINE 6.25-10 MG/5ML SYRP 1 tsp po q 6 hours prn cough PROMETHAZINE-CODEINE 68166497700 No Longer Active Alina Castaneda MD PhD Active CEFDINIR 300 MG CAPS by mouth twice a day CEFDINIR 43912787406 No Longer Active Alina Castaneda MD PhD Active METFORMIN HCL 500 MG GO14U-XCE Take 3 tablets by mouth everyday METFORMIN HCL 01410841576 No Longer Active Alina Castaneda MD PhD Active LEVEMIR 100 UNIT/ML SOLN 90 units SQ qHS INSULIN DETEMIR 50769100162 No Longer Active Marvel MARROQUIN Active TOPROL XL 100 MG [id number] 1 @ HS METOPROLOL SUCCINATE 07484650075 No Longer Active Marvel MARROQUIN Active ALLOPURINOL 300 MG TABS Take one by mouth daily ALLOPURINOL 08386821141 Active Alina Castaneda MD PhD Active ZYPREXA 10 MG TABS Take one by mouth daily OLANZAPINE 12780344907 No Longer Active Alina Castaneda MD PhD Active NOVOLOG 100 UNIT/ML SOLN 40 units with every meal INSULIN ASPART 37167509033 No Longer Active Alina Castaneda MD PhD Active VERAPAMIL HCL CR 120 MG TAB CR 1 qPM VERAPAMIL HCL 22634086833 No Longer Active Salina Han A Active ZYPREXA 15 MG TABS Take 1 tablet by mouth daily OLANZAPINE 68740943263 No Longer Active Marvel MARROQUIN Active LISINOPRIL 20 MG TABS 1 BID LISINOPRIL 57702393393 Active Mao Rodriguez MD Active ALBUTEROL SULFATE (2.5 MG/3ML) 0.083% NEBU 1 neb tid and prn cough ALBUTEROL SULFATE 24831597569 No Longer Active Alina Castaneda MD PhD Active FLUVOXAMINE MALEATE 100 MG TABS Take one (1) tablet by mouth am, 05/25 at noon, 1 pm FLUVOXAMINE MALEATE 52354381751 Active Alina Castaneda MD PhD Active TRAVATAN Z 0.004 % SOLN 1 gtt each eye daily TRAVOPROST 18850841636 Active Alina Mendez Active LANTUS 100 UNIT/ML SOLN 60 units sq q hs INSULIN GLARGINE 15679684926 No Longer Active Alina Mendez Active UROXATRAL 10 MG [id number]-AFV Take 1 tablet by mouth daily ALFUZOSIN HCL 22963130573 Active Tanya MARROQUIN Active ALBUTEROL SULFATE (2.5 MG/3ML) 0.083% NEBU 1 neb tid and prn cough ALBUTEROL SULFATE (2.5 MG/3ML) 0.083% NEBU 555123 ALBUTEROL SULFATE Inactive ZYPREXA 15 MG TABS Take 1 tablet by mouth daily ZYPREXA 15 MG TABS 776958 OLANZAPINE Inactive VERAPAMIL HCL CR 120 MG TAB CR 1 qPM VERAPAMIL HCL CR 120 MG TAB CR VERAPAMIL HCL Inactive ZYPREXA 10 MG TABS Take one by mouth daily ZYPREXA 10 MG TABS 995332 OLANZAPINE Inactive TOPROL XL 100 MG [id number] 1 @ HS TOPROL XL 100 MG [id number] METOPROLOL SUCCINATE Inactive LEVEMIR 100 UNIT/ML SOLN 90 units SQ qHS LEVEMIR 100 UNIT/ML SOLN INSULIN DETEMIR Inactive PROMETHAZINE-CODEINE 6.25-10 MG/5ML SYRP 1 tsp po q 6 hours prn cough PROMETHAZINE-CODEINE 6.25-10 MG/5ML SYRP 394173 PROMETHAZINE- CODEINE Inactive GUAIFENESIN 600 MG SK57L-MRR 1 tablet by mouth twice daily if needed for cough GUAIFENESIN 600 MG [id number] GUAIFENESIN Inactive ALBUTEROL SULFATE 0.083 % NEBU SOLN one vial per nebulizer TID and PRN cough/ soa ALBUTEROL SULFATE 0.083 % NEBU SOLN 063662 ALBUTEROL SULFATE Inactive ZYPREXA 5 MG TABS take one tablet by mouth every evening ZYPREXA 5 MG TABS 424098 OLANZAPINE Inactive HYDROCODONE-ACETAMINOPHEN 5-325 MG TABS take one tablet by mouth every four hours as needed for pain HYDROCODONE-ACETAMINOPHEN 5-325 MG TABS 838386 HYDROCODONE-ACETAMINOPHEN Inactive BACTROBAN 2 % CREAM apply to ear and nose twice daily BACTROBAN 2 % CREAM 753554 MUPIROCIN CALCIUM Inactive CYCLOBENZAPRINE HCL 10 MG TABS 1/2 tablet by mouth every 8 hours as needed for muscle spasms CYCLOBENZAPRINE HCL 10 MG TABS 856025 CYCLOBENZAPRINE HCL Inactive NAVANE 10 MG CAPS 1/2 tablet twice a day NAVANE 10 MG CAPS THIOTHIXENE Inactive DOXEPIN HCL 10 MG CAPS Take 1 tablet by mouth daily DOXEPIN HCL 10 MG CAPS 7502958 DOXEPIN HCL Inactive HYDROCODONE-ACETAMINOPHEN 7.5-325 MG TABS 1 four times a day as needed for pain HYDROCODONE-ACETAMINOPHEN 7.5-325 MG TABS 953489 HYDROCODONE-ACETAMINOPHEN Inactive NIACIN CR 500 MG CR-TABS 2 qHS NIACIN CR 500 MG CR- TABS NIACIN Inactive ORPHENADRINE CITRATE ER 100 MG [id number] 1 every 12 hr. as needed ORPHENADRINE CITRATE ER 100 MG [id number]-DEV ORPHENADRINE CITRATE Inactive ACETAMINOPHEN 500 MG TABS 2 Q 6 hr. PRN ACETAMINOPHEN 500 MG TABS 678647 ACETAMINOPHEN Inactive SAPHRIS 5 MG SUBL by mouth twice a day SAPHRIS 5 MG SUBL ASENAPINE MALEATE Inactive NIACIN ER 500 MG CR-TABS 4 qHS (for triglycerides) NIACIN ER 500 MG CR-TABS NIACIN Inactive IBUPROFEN 200 MG TABS 1 Q 6 hr. PRN IBUPROFEN 200 MG TABS 992578 IBUPROFEN Inactive FLUTICASONE PROPIONATE 50 MCG/ACT SUSP 2 sprays each nostril qDay x 30 days FLUTICASONE PROPIONATE 50 MCG/ACT SUSP 159007 FLUTICASONE PROPIONATE Inactive EQL TRUETEST TEST STRP Test blood sugar TID EQL TRUETEST TEST STRP GLUCOSE BLOOD Inactive TERESE CONTOUR TEST STRP monitor blood sugars 3x/day TERESE CONTOUR TEST STRP GLUCOSE BLOOD Inactive DETROL LA 4 MG [id number] Take 1 tablet by mouth daily DETROL LA 4 MG [id number]-ODR TOLTERODINE TARTRATE Inactive CEFDINIR 300 MG CAPS by mouth twice a day CEFDINIR 300 MG CAPS 005415 CEFDINIR Inactive AZITHROMYCIN 500 MG SOLR 1 po q day AZITHROMYCIN 500 MG SOLR 783805 AZITHROMYCIN Inactive AMOXICILLIN 500 MG CAPS 2 po BID x 10 days AMOXICILLIN 500 MG CAPS 809868 AMOXICILLIN Inactive Immunizations Vaccine Administration Date Value [...] Fluvirin, Fluarix, Agriflu(>=18 yo)) Fluzone (>3 yrs.) [ILQ152] Influenza, seasonal, injectable pneumococcal immunization administered Pneumovax 23 [CVX33] pneumococcal polysaccharide vaccine, 23 valent Vital Signs Date Name Value Unit Range Description blood pressure, diastolic - 8462-4 82 mm[Hg] [...] E&M - 3141-9 258 [lb_av] Weight Measured blood pressure, diastolic - 8462-4 77 mm[Hg] BP garcia blood pressure, systolic - 8480-6 135 mm[Hg] BP sys pulse rate E&M - 8867-4 99 /min Heart rate blood pressure, diastolic - 8462-4 74 mm[Hg] BP garcia blood pressure, systolic - 8480-6 132 mm[Hg] BP sys pulse rate E&M - 8867-4 111 /min Heart rate blood pressure, diastolic - 8462-4 60 mm[Hg] BP garcia blood pressure, systolic - 8480-6 140 mm[Hg] BP sys height E&M - 8302-2 70 [in_us] Bdy height pulse rate E&M - 8867-4 82 /min Heart rate weight E&M - 3141-9 262 [lb_av] Weight Measured blood pressure, diastolic - 8462-4 79 mm[Hg] BP garcia blood pressure, systolic - 8480-6 126 mm[Hg] BP sys pulse rate E&M - 8867-4 88 /min Heart rate blood pressure, diastolic - 8462-4 75 mm[Hg] BP garcia blood pressure, systolic - 8480-6 122 mm[Hg] BP sys pulse rate E&M - 8867-4 88 /min Heart rate blood pressure, diastolic, second observation 83 mm[Hg] BP garcia blood pressure, diastolic - 8462-4 85 mm[Hg] BP garcia blood pressure, systolic, second observation 161 mm[Hg] BP sys blood pressure, systolic - 8480-6 162 mm[Hg] BP sys pulse rate E&M - 8867-4 96 /min Heart rate blood pressure, diastolic - 8462-4 84 mm[Hg] BP garcia blood pressure, systolic - 8480-6 136 mm[Hg] BP sys pulse rate E&M - 8867-4 94 /min Heart rate blood pressure, diastolic - 8462-4 96 mm[Hg] BP garcia blood pressure, systolic - 8480-6 171 mm[Hg] BP sys pulse rate E&M - 8867-4 98 /min Heart rate Diagnostic Results Date Name Value Unit Range Description Lab Report: Comp. Metabolic Panel, HGBA1C - Chemistry sodium, serum 126 mmol/L 049-229 5965/02/26 potassium, serum 4.8 mmol/L 3.5-5.2 chloride, serum [...] DIRECT - Chemistry cholesterol, serum 158 mg/dL 745-057 1366/07/11 triglyceride, serum, fasting 489 mg/dL 30-200 HDL [...] mg/dL Encounters Code Encounter Date Provider Facility CPT-66716 Level 3 Est. Patient 15:17:18 CDT Alina Castaneda MD PhD [facility] CPT-07492 Level 3 Est. 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 Patient 21:28:43 CDT Alina Castaneda MD PhD [facility] CPT-50209 Level 3 Est. Patient 15:20:11 CDT [facility] CPT-30824 Level 4 Est. Patient 19:08:12 CDT Alina Castaneda MD PhD [facility] CPT-77200 Level 3 Est. Patient 15:06:39 CDT [facility] CPT-50559 Level 4 Est. Patient 17:48:15 CDT Alina Castaneda MD [facility] [place][note 2]-12285 Level 3 Est. Patient 14:53:49 CDT Alina Castaneda MD [facility] [place][note 2]-97266 Level 3 Est. Patient 09:35:16 CDT Alina Castaneda MD [facility] [place][note 2]-99089 Level 3 Est. Patient 12:23:22 CDT Alina Castaneda MD [facility] [place][note 2]-45442 Level 3 Est. Patient 16:19:15 CDT Alina Castaneda MD [facility] [place][note 2]-80073 Level 3 Est. 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 Patient 14:12:56 TRICOT KNITTING MACHINE OPERATOR Alina Castaneda MD [facility] [place][note 2]-64215 Level 2 Est. 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 Patient 09:18:18 TRICOT KNITTING MACHINE OPERATOR Marvel Charles [facility] [place]-69923 Level 2 Est. Patient 21:50:24 CDT Alina Castaneda MD [facility] [place][note 2]-74773 Level 3 Est. Patient 09:17:28 CDT Marvel [address] [facility] [place]-94778 Level 4 Est. Patient 18:54:02 CDT Alina Castaneda MD [facility] [place][note 2]-86203 Level 3 Est. Patient 10:47:10 CDT Alina Castaneda MD [facility] [place][note 2]-66894 Level 3 Est. Patient 09:22:20 CDT Marvel Charles [facility] CPT-03068 Level 3 Est. Patient 16:39:43 CDT [facility] CPT-[facility]84 Level 3 Est. Patient 16:05:16 CDT Alina Castaneda MD [facility] CPT-47561 Level 3 Est. Patient 00:29:15 CDT Alina Castaneda MD [facility] CPT-47937 Level 3 Est. 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 Patient 21:30:19 TRICOT KNITTING MACHINE OPERATOR Alina Castaneda MD [facility] CPT-86079 Level 4 Est. Patient 17:04:11 TRICOT KNITTING MACHINE OPERATOR [facility] CPT-37199 Level 3 Est. Patient 15:34:11 TRICOT KNITTING MACHINE OPERATOR [facility] CPT-05107 Level 2 Est. Patient 12:51:58 TRICOT KNITTING MACHINE OPERATOR Alina Castaneda MD [facility] CPT-20455 Level 3 Est. Patient 13:20:01 TRICOT KNITTING MACHINE OPERATOR Alina Castaneda MD [facility] CPT-44562 Level 3 Est. Patient 09:23:35 CDT Alina Castaneda MD [facility] Procedures Code Procedure Name Date Entry Date Standard Description CPT-49587 Administration single or combination vaccine inc oral 11 :49:51 CDT CPT-18523 Pneumovax 11:49:51 CDT CPT-59293 Ribs unilateral 2V 12:37:22 TRICOT KNITTING MACHINE OPERATOR CPT-92118 Chest 2V Frontal and Lat 17:15:26 CDT CPT-65682 Abx/Therapy Injection 18:54:02 CDT CPT-J0696 Rocephin 1000 mg (Ceftriaxone) 16:00:32 CDT CPT-29594 Chest 2V Frontal and Lat 15:26:45 CDT CPT-29973 Chest 2V Frontal and Lat 10:23:27 CDT CPT-51986 Venipuncture Draw Fee 10:11:00 CDT CPT-38081 Administration single or combination vaccine inc oral 11 :56:38 CDT CPT-14705 Influenza split virus > age 3 11:56:38 CDT CPT-13233 Venipuncture Draw Fee 08:49:54 TRICOT KNITTING MACHINE OPERATOR CPT-68568 EKG Trac and Interp 17:54:19 TRICOT KNITTING MACHINE OPERATOR
--- OUTSIDE RECORDS SUMMARY | 2018-07-02 19:39 | XMS REPORT | Clinical Summary ---
Author Author Admin, TERELL Organization [facility] Address Unknown Phone Unavailable Allergies, [...] Anemia, unspecified REACTIVE AIRWAY DISEASE 493.90 Active Ailna Castaneda MD PhD Asthma, unspecified OBSESSIVE-COMPULSIVE DISORDER [...] PhD Palpitations UNSPECIFIED TACHYCARDIA 785.0 Resolved Alina Castanead MD PhD Tachycardia, unspecified ABNORMAL HEART RHYTHMS [...] Acute sinusitis, unspecified BRONCHITIS, ACUTE 466.0 Resolved Alnia Castaneda MD PhD Acute bronchitis PNEUMONIA, ORGANISM UNSPECIFIED 486 Resolved Alina Castaneda MD PhD Pneumonia, organism unspecified RIB PAIN, RIGHT SIDED 786.50 Resolved Alina Castaneda MD PhD Unspecified chest pain SKIN LESION 709.9 Resolved Alina Castaneda MD PhD Unspecified disorder of skin and subcutaneous tissue HEADACHE 784.0 Active Alina Castaneda MD PhD Headache SINUSITIS, ACUTE 461.9 Resolved Ailna Castaneda MD PhD Acute sinusitis, unspecified DIABETIC [...] PhD DIABETIC HYPOGLYCEMIA, TYPE II ICD-250.80 Inactive Mravel 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 Inactive Alina Castaneda MD PhD SPECIAL SCREENING FOR MALIGNANT NEOPLASM OF PROSTATE ICD-V76.44 Inactive Alina Castaneda MD PhD Medication List Medication Instructions Start Date Stop Date Generic Name NDC Status Provider Patient Instruction MORPHINE SULFATE 30 MG TABS 1 pill by mouth nightly, for pain MORPHINE SULFATE 51828281192 Active Alina Castaneda MD PhD Active LATUDA 80 MG TABS 1 tab by mouth every evening LURASIDONE HCL 80989799237 Active Alina Castaneda MD PhD Active UROXATRAL 10 MG [id number] Take 1 tablet by mouth daily ALFUZOSIN HCL 31747334128 No Longer Active Alina Castaneda MD PhD Active THIOTHIXENE 5 MG CAPS by mouth twice a day THIOTHIXENE 73380800192 No Longer Active Alina Castaneda MD PhD Active ZYPREXA 7.5 MG TABS 1 at HS OLANZAPINE 56069921654 No Longer Active Alina Castaneda MD PhD Active HUMALOG 100 UNIT/ML SOLN Take 20 units with breakfast, 10u with lunch and suppetr. INSULIN LISPRO (HUMAN) 07243979593 Active Marvel Ziglari OPTICAL LABORATORY TECHNICIAN Active LEVEMIR 100 UNIT/ML SOLN Take 70 u at 7-8pm INSULIN DETEMIR 39413058268 Active Marvel Mackenzieglari OPTICAL LABORATORY TECHNICIAN Active BD INSULIN SYRINGE 28G X 1/2" 1 ML MISC 1 four times per day INSULIN SYRINGE-NEEDLE U-100 59468074658 Active Marvel Mackenzieglari OPTICAL LABORATORY TECHNICIAN Active CYCLOBENZAPRINE HCL 10 MG TABS 1 tablet by mouth three times daily, scheduled CYCLOBENZAPRINE HCL 18101255905 Active Alina Castaneda MD PhD Active TOLTERODINE TARTRATE 2 MG TABS 1 pill twice daily, for bladder TOLTERODINE TARTRATE 40014293111 Active Alina Castaneda MD PhD Active DETROL LA 4 MG [id number] Take 1 tablet by mouth daily TOLTERODINE TARTRATE 61641581349 No Longer Active Alina Castaneda MD PhD Active HYDROCODONE-ACETAMINOPHEN 5-325 MG TABS 2 tabs by mouth three times daily as needed for pain HYDROCODONE-ACETAMINOPHEN 63362557911 Active Alina Castaneda MD PhD Active TERESE CONTOUR TEST STRP monitor blood sugars 3x/day GLUCOSE BLOOD 57630805199 No Longer Active Alina Castaneda MD PhD Active EQL TRUETEST TEST STRP Test blood sugar TID GLUCOSE BLOOD 79729150428 No Longer Active Alina Castaneda MD PhD Active FLUTICASONE PROPIONATE 50 MCG/ACT SUSP 2 sprays each nostril qDay x 30 days FLUTICASONE PROPIONATE 48407138745 No Longer Active Alina Castaneda MD PhD Active IBUPROFEN 200 MG TABS 1 Q 6 hr. PRN IBUPROFEN 10510223638 No Longer Active Alina Castaneda MD PhD Active NIACIN ER 500 MG CR-TABS 4 qHS (for triglycerides) NIACIN 32069719673 No Longer Active Alina Castaneda MD PhD Active TRUETEST TEST STRP check sugars 4x/day GLUCOSE BLOOD 25817104671 Active Alina Castaneda MD PhD Active ALFUZOSIN HCL ER 10 MG [id number] 1 tablet daily ALFUZOSIN HCL 79452216586 Active Vanessa Hickey MD Active CLONAZEPAM 1 MG TABS 1 pill by mouth three times daily CLONAZEPAM 28095297527 Active Alina Castaneda MD PhD Active LOVAZA 1 GM CAPS 4 daily (for triglycerides) [id number] ETHYL ESTERS 06411315499 Active Alina Castaneda MD PhD Active SAPHRIS 5 MG SUBL by mouth twice a day ASENAPINE MALEATE 71854494640 No Longer Active Marvel MENDOZAP Active ACETAMINOPHEN 500 MG TABS 2 Q 6 hr. PRN ACETAMINOPHEN 39575097832 No Longer Active Mallashondaeh 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 OPTICAL LABORATORY TECHNICIAN Active VERAPAMIL HCL ER 120 MG [id number]-LBF 1 pill by mouth twice a day, for headache prevention/control VERAPAMIL HCL 77855787227 Active Alina Castaneda MD PhD Active ORPHENADRINE CITRATE ER 100 MG GH40U-BSW 1 every 12 hr. as needed ORPHENADRINE CITRATE 22302701556 No Longer Active Alina Castaneda MD PhD Active NIACIN CR 500 MG CR-TABS 2 qHS NIACIN 05360035283 No Longer Active Alina Castaneda MD PhD Active AMOXICILLIN 500 MG CAPS 2 po BID x 10 days AMOXICILLIN 65005820244 No Longer Active Alina Castaneda MD PhD Active HYDROCODONE-ACETAMINOPHEN 7.5-325 MG TABS 1 four times a day as needed for pain HYDROCODONE-ACETAMINOPHEN 77934929070 No Longer Active Alina Castaneda MD PhD Active METFORMIN HCL ER 500 MG OY72O-HPP Take three tablets by mouth everyday METFORMIN HCL 10580734721 Active Alina Castaneda MD PhD Active DOXEPIN HCL 10 MG CAPS Take 1 tablet by mouth daily DOXEPIN HCL 93844002631 No Longer Active Salina Han RMA Active NAVANE 10 MG CAPS 1/2 tablet twice a day THIOTHIXENE No Longer Active Salina Han RMA Active CYCLOBENZAPRINE HCL 10 MG TABS 1/2 tablet by mouth every 8 hours as needed for muscle spasms CYCLOBENZAPRINE HCL 57717006093 No Longer Active Alina Castaneda MD PhD Active BACTROBAN 2 % CREAM apply to ear and nose twice daily MUPIROCIN CALCIUM 33362936221 No Longer Active Alina Castaneda MD PhD Active HYDROCODONE-ACETAMINOPHEN 5-325 MG TABS take one tablet by mouth every four hours as needed for pain HYDROCODONE-ACETAMINOPHEN 97749132064 No Longer Active Alina Castaneda MD PhD Active ZOLPIDEM TARTRATE 10 MG TABS take at bedtime ZOLPIDEM TARTRATE 01592536611 Active Alina Castaneda MD PhD Active ZYPREXA 5 MG TABS take one tablet by mouth every evening OLANZAPINE 45308041264 No Longer Active Alina Castaneda MD PhD Active ALBUTEROL SULFATE 0.083 % NEBU SOLN one vial per nebulizer TID and PRN cough/ soa ALBUTEROL SULFATE 06943767256 No Longer Active Alina Castaneda MD PhD Active GUAIFENESIN 600 MG IC61Z-QPS 1 tablet by mouth twice daily if needed for cough GUAIFENESIN 77910344791 No Longer Active Marvel Charles OPTICAL LABORATORY TECHNICIAN Active AZITHROMYCIN 500 MG SOLR 1 po q day AZITHROMYCIN 80012520417 No Longer Active Alina Castaneda MD PhD Active METOPROLOL SUCCINATE 100 MG NJ48A-BFO 1 by mouth daily for blood pressure METOPROLOL SUCCINATE 71975495560 Active Alina Castaneda MD PhD Active PROMETHAZINE-CODEINE 6.25-10 MG/5ML SYRP 1 tsp po q 6 hours prn cough PROMETHAZINE-CODEINE 71470733733 No Longer Active Alina Casatneda MD PhD Active CEFDINIR 300 MG CAPS by mouth twice a day CEFDINIR 07824488379 No Longer Active Alina Castaneda MD PhD Active METFORMIN HCL 500 MG RM14L-OUQ Take 3 tablets by mouth everyday METFORMIN HCL 02789050921 No Longer Active Alina Castaneda MD PhD Active LEVEMIR 100 UNIT/ML SOLN 90 units SQ qHS INSULIN DETEMIR 28265788309 No Longer Active Marvel MARROQUIN Active TOPROL XL 100 MG BS46S-IQZ 1 @ HS METOPROLOL SUCCINATE 12277948881 No Longer Active Marvel MARROQUIN Active ALLOPURINOL 300 MG TABS Take one by mouth daily ALLOPURINOL 75489892625 Active Alina Castaneda MD PhD Active ZYPREXA 10 MG TABS Take one by mouth daily OLANZAPINE 92301993495 No Longer Active Alina Castaneda MD PhD Active NOVOLOG 100 UNIT/ML SOLN 40 units with every meal INSULIN ASPART 64074041442 No Longer Active Alina Castaneda MD PhD Active VERAPAMIL HCL CR 120 MG TAB CR 1 qPM VERAPAMIL HCL 09719263305 No Longer Active Salina Han [facility] Active ZYPREXA 15 MG TABS Take 1 tablet by mouth daily OLANZAPINE 74984324736 No Longer Active Marvel MARROQUIN Active LISINOPRIL 20 MG TABS 1 BID LISINOPRIL 94253944865 Active Alina Castaneda MD PhD Active ALBUTEROL SULFATE (2.5 MG/3ML) 0.083% NEBU 1 neb tid and prn cough ALBUTEROL SULFATE 67069788319 No Longer Active Alina Castaneda MD PhD Active FLUVOXAMINE MALEATE 100 MG TABS Take one (1) tablet by mouth am, 1/2 at noon, 1 pm FLUVOXAMINE MALEATE 77773612228 Active Alina Castaneda MD PhD Active TRAVATAN Z 0.004 % SOLN 1 gtt each eye daily TRAVOPROST 75029809262 Active CRYSTAL Suarez Active LANTUS 100 UNIT/ML SOLN 60 units sq q hs INSULIN GLARGINE 02214915495 No Longer Active CRYSTAL Suarez Active ALBUTEROL SULFATE (2.5 MG/3ML) 0.083% NEBU 1 neb tid and prn cough ALBUTEROL SULFATE (2.5 MG/3ML) 0.083% NEBU 175565 ALBUTEROL SULFATE Inactive ZYPREXA 15 MG TABS Take 1 tablet by mouth daily ZYPREXA 15 MG TABS 086748 OLANZAPINE Inactive VERAPAMIL HCL CR 120 MG TAB CR 1 qPM VERAPAMIL HCL CR 120 MG TAB CR VERAPAMIL HCL Inactive ZYPREXA 10 MG TABS Take one by mouth daily ZYPREXA 10 MG TABS 057105 OLANZAPINE Inactive TOPROL XL 100 MG [id number]-[id number] 1 @ HS TOPROL XL 100 MG [id number]-PAR METOPROLOL SUCCINATE Inactive LEVEMIR 100 UNIT/ML SOLN 90 units SQ qHS LEVEMIR 100 UNIT/ML SOLN INSULIN DETEMIR Inactive PROMETHAZINE-CODEINE 6.25-10 MG/5ML SYRP 1 tsp po q 6 hours prn cough PROMETHAZINE-CODEINE 6.25-10 MG/5ML SYRP 141507 PROMETHAZINE- CODEINE Inactive GUAIFENESIN 600 MG XO69H-ZXF 1 tablet by mouth twice daily if needed for cough GUAIFENESIN 600 MG [id number]-LSQ GUAIFENESIN Inactive ALBUTEROL SULFATE 0.083 % NEBU SOLN one vial per nebulizer TID and PRN cough/ soa ALBUTEROL SULFATE 0.083 % NEBU SOLN 065761 ALBUTEROL SULFATE Inactive ZYPREXA 5 MG TABS take one tablet by mouth every evening ZYPREXA 5 MG TABS 243070 OLANZAPINE Inactive HYDROCODONE-ACETAMINOPHEN 5-325 MG TABS take one tablet by mouth every four hours as needed for pain HYDROCODONE-ACETAMINOPHEN 5-325 MG TABS 481878 HYDROCODONE-ACETAMINOPHEN Inactive BACTROBAN 2 % CREAM apply to ear and nose twice daily BACTROBAN 2 % CREAM 048092 MUPIROCIN CALCIUM Inactive CYCLOBENZAPRINE HCL 10 MG TABS 1/2 tablet by mouth every 8 hours as needed for muscle spasms CYCLOBENZAPRINE HCL 10 MG TABS 774508 CYCLOBENZAPRINE HCL Inactive NAVANE 10 MG CAPS 1/2 tablet twice a day NAVANE 10 MG CAPS THIOTHIXENE Inactive DOXEPIN HCL 10 MG CAPS Take 1 tablet by mouth daily DOXEPIN HCL 10 MG CAPS 2264758 DOXEPIN HCL Inactive HYDROCODONE-ACETAMINOPHEN 7.5-325 MG TABS 1 four times a day as needed for pain HYDROCODONE-ACETAMINOPHEN 7.5-325 MG TABS 207288 HYDROCODONE-ACETAMINOPHEN Inactive NIACIN CR 500 MG CR-TABS 2 qHS NIACIN CR 500 MG CR- TABS NIACIN Inactive ORPHENADRINE CITRATE ER 100 MG [id number]-YLO 1 every 12 hr. as needed ORPHENADRINE CITRATE ER 100 MG [id number]-FKU ORPHENADRINE CITRATE Inactive ACETAMINOPHEN 500 MG TABS 2 Q 6 hr. PRN ACETAMINOPHEN 500 MG TABS 042563 ACETAMINOPHEN Inactive SAPHRIS 5 MG SUBL by mouth twice a day SAPHRIS 5 MG SUBL ASENAPINE MALEATE Inactive NIACIN ER 500 MG CR-TABS 4 qHS (for triglycerides) NIACIN ER 500 MG CR-TABS NIACIN Inactive IBUPROFEN 200 MG TABS 1 Q 6 hr. PRN IBUPROFEN 200 MG TABS 415338 IBUPROFEN Inactive FLUTICASONE PROPIONATE 50 MCG/ACT SUSP 2 sprays each nostril qDay x 30 days FLUTICASONE PROPIONATE 50 MCG/ACT SUSP 929205 FLUTICASONE PROPIONATE Inactive EQL TRUETEST TEST STRP Test blood sugar TID EQL TRUETEST TEST STRP GLUCOSE BLOOD Inactive TERESE CONTOUR TEST STRP monitor blood sugars 3x/day TERESE CONTOUR TEST STRP GLUCOSE BLOOD Inactive DETROL LA 4 MG [id number]-NTU Take 1 tablet by mouth daily DETROL LA 4 MG MY46W-HIM TOLTERODINE TARTRATE Inactive ZYPREXA 7.5 MG TABS 1 at HS ZYPREXA 7.5 MG TABS 357603 OLANZAPINE Inactive THIOTHIXENE 5 MG CAPS by mouth twice a day THIOTHIXENE 5 MG CAPS 483293 THIOTHIXENE Inactive UROXATRAL 10 MG RU88U-LLV Take 1 tablet by mouth daily UROXATRAL 10 MG [id number]-KPK ALFUZOSIN HCL Inactive CEFDINIR 300 MG CAPS by mouth twice a day CEFDINIR 300 MG CAPS 274563 CEFDINIR Inactive AZITHROMYCIN 500 MG SOLR 1 po q day AZITHROMYCIN 500 MG SOLR 032356 AZITHROMYCIN Inactive AMOXICILLIN 500 MG CAPS 2 po BID x 10 days AMOXICILLIN 500 MG CAPS 021935 AMOXICILLIN Inactive Immunizations Vaccine Administration Date Value [...] Fluvirin, Fluarix, Agriflu(>=18 yo)) Fluzone (>3 yrs.) [DFS232] Influenza, seasonal, injectable pneumococcal immunization administered Pneumovax 23 [CVX33] pneumococcal polysaccharide vaccine, 23 valent Vital Signs Date Name Value Unit Range Description blood pressure, diastolic - 8462-4 73 mm[Hg] [...] pressure, diastolic - 8462-4 62 mm[Hg] BP gacria blood pressure, systolic - 8480-6 123 mm[Hg] [...] BP garica blood pressure, systolic - 8480-6 142 mm[Hg] [...] E&M - 3141-9 261 [lb_av] Weight Measured Diagnostic Results Date Name Value Unit Range Description Lab Report: Basic Metabolic Panel, HGBA1C - Chemistry sodium, serum 130 mmol/L 838-987 9313/06/09 potassium, serum 4.0 mmol/L 3.5-5.2 chloride, serum [...] 6.0 mg/dL 2.6-7.2 sodium, serum 130 mmol/L 295-562 6341/05/01 potassium, serum 5.2 mmol/L 3.5-5.2 chloride, serum [...] 0.40 mg/dL 0.00-1.00 cholesterol, serum 151 mg/dL 782-506 1914/05/01 triglyceride, serum, fasting 356 mg/dL 30-200 HDL [...] HGBA1C - Chemistry sodium, serum 126 mmol/L 414-222 2133/02/26 potassium, serum 4.8 mmol/L 3.5-5.2 chloride, serum [...] % of total hemoglobin 6.9 % 4.3-6.0 Office Visit: Diabetes Visit - [...] mg/dL Encounters Code Encounter Date Provider Facility CPT-10499 Level 3 Est. Patient 12:02:49 CDT Alina Castaneda MD PhD [facility]-71546 Level 3 Est. Patient 19:17:33 CDT Alina Castaneda MD PhD [facility] [place][note 3]91645 Level 3 Est. Patient 13:19:10 CDT [facility] Patient 08:20:05 CDT Alina Castaneda MD PhD [facility]-07398 Level 3 Est. Patient 15:17:18 CDT Alina Castaneda MD PhD [facility][note 3]61340 Level 3 Est. Patient 14:25:36 CORPORATE CLAIMS EXAMINER [facility] Level 3 Est. Patient 10:09:15 CORPORATE CLAIMS EXAMINER [facility] Level 3 Est. Patient 21:28:43 CDT Alina Castaneda MD PhD [facility]-15918 Level 3 Est. Patient 15:20:11 CDT [facility] Araceli [facility] [place]-78120 Level 4 Est. Patient 19:08:12 CDT Alina Castaneda MD PhD [facility] CPT-49495 Level 3 Est. Patient 15:06:39 CDT Marvel Charles [facility] CPT-10773 Level 4 Est. Patient 17:48:15 CDT Alina Catsaneda MD [facility] [place]-82875 Level 3 Est. Patient 14:53:49 CDT Alina Castaneda MD [facility] [place]-37071 Level 3 Est. Patient 09:35:16 CDT Alina Castaneda MD [facility] [place]-76966 Level 3 Est. Patient 12:23:22 CDT Alina Castaneda MD [facility] [place]-26061 Level 3 Est. Patient 16:19:15 CDT Alina Castaneda MD [facility] [place]-90065 Level 3 Est. Patient 21:39:56 CORPORATE CLAIMS EXAMINER Alina Castaneda MD [facility] [place]-76852 Level 4 Est. Patient 14:12:56 CORPORATE CLAIMS EXAMINER Alina Castaneda MD [facility] [place]-81346 Level 2 Est. Patient 15:34:57 CORPORATE CLAIMS EXAMINER Alina Castaneda MD [facility] [place]-88076 Level 3 Est. Patient 12:17:04 CORPORATE CLAIMS EXAMINER Alina Castaneda MD [facility] [place]-10764 Level 3 Est. Patient 09:18:18 CORPORATE CLAIMS EXAMINER Marvel Charles [facility] CPT-80840 Level 2 Est. Patient 21:50:24 CDT Alina Castaneda MD [facility] [place]-30352 Level 3 Est. Patient 09:17:28 CDT Marvel Charles [facility] CPT-56896 Level 4 Est. Patient 18:54:02 CDT Alina Castaneda MD [facility] [place]-18183 Level 3 Est. Patient 10:47:10 CDT Alina Castaneda MD PhD [facility] CPT-39807 Level 3 Est. Patient 09:22:20 CDT Brooksjohn Thurstonestela [facility] CPT-42839 Level 3 Est. Patient 16:39:43 CDT Marvel Thurstonestela [facility] CPT-63270 Level 3 Est. Patient 16:05:16 CDT Alina Castaneda MD [facility] CPT-36569 Level 3 Est. Patient 00:29:15 CDT Alina Castaneda MD [facility] [place]-38596 Level 3 Est. Patient 10:49:22 CORPORATE CLAIMS EXAMINER Marvel Araceli [facility] CPT-82461 Level 3 Est. Patient 21:30:19 CORPORATE CLAIMS EXAMINER Alina Castaneda MD [facility] CPT-40379 Level 4 Est. Patient 17:04:11 CORPORATE CLAIMS EXAMINER [facility] Level 3 Est. Patient 15:34:11 CORPORATE CLAIMS EXAMINER Marvel Araceli [facility] CPT-91927 Level 2 Est. Patient 12:51:58 CORPORATE CLAIMS EXAMINER Alina Castaneda MD [facility] CPT-34622 Level 3 Est. Patient 13:20:01 CORPORATE CLAIMS EXAMINER Alina Castaneda MD [facility] CPT-64241 Level 3 Est. Patient 09:23:35 CDT Alina Castaneda MD [facility] Procedures Code Procedure Name Date Entry Date Standard Description CPT-04513 Administration single or combination vaccine inc oral 11 :49:51 CDT CPT-02550 Pneumovax 11:49:51 CDT CPT-51524 Ribs unilateral 2V 12:37:22 CORPORATE CLAIMS EXAMINER CPT-58376 Chest 2V Frontal and Lat 17:15:26 CDT CPT-84901 Abx/Therapy Injection 18:54:02 CDT CPT-J0696 Rocephin 1000 mg (Ceftriaxone) 16:00:32 CDT CPT-94911 Chest 2V Frontal and Lat 15:26:45 CDT CPT-17103 Chest 2V Frontal and Lat 10:23:27 CDT CPT-66588 Venipuncture Draw Fee 10:11:00 CDT CPT-87855 Administration single or combination vaccine inc oral 11 :56:38 CDT CPT-74508 Influenza split virus > age 3 11:56:38 CDT CPT-67528 Venipuncture Draw Fee 08:49:54 CORPORATE CLAIMS EXAMINER CPT-97773 EKG Trac and Interp 17:54:19 CORPORATE CLAIMS EXAMINER
--- OUTSIDE RECORDS SUMMARY | 2018-07-02 19:41 | XMS REPORT | Clinical Summary ---
Author Author Admin, TERELL Organization [facility] Address Unknown Phone Allergies, Adverse Reactions, [...] PhD Screening for malignant neoplasms of prostate WOUND, [...] Name NDC Status Provider Patient Instruction BD INSULIN SYRINGE 28G X 1/2" 1 ML MISC 1 four times per day INSULIN SYRINGE-NEEDLE U-100 [id number] Active Alina Castaneda MD PhD Active CYCLOBENZAPRINE HCL 10 MG TABS 1 tablet by mouth three times daily, scheduled CYCLOBENZAPRINE HCL 27048525912 Active Alina Castaneda MD PhD Active HUMALOG 100 UNIT/ML SOLN take 40u with each meal INSULIN LISPRO (HUMAN) 73720901813 Active Alina Castaneda MD PhD Active TOLTERODINE TARTRATE 2 MG TABS 1 pill twice daily, for bladder TOLTERODINE TARTRATE 84258291139 Active Alina Castaneda MD PhD Active DETROL LA 4 MG [id number]-[id number] Take 1 tablet by mouth daily TOLTERODINE TARTRATE 20450218616 No Longer Active Alina Castaneda MD PhD Active HYDROCODONE-ACETAMINOPHEN 5-325 MG TABS 2 tabs by mouth three times daily as needed for pain HYDROCODONE-ACETAMINOPHEN 55401896008 Active Alina Castaneda MD PhD Active TERESE CONTOUR TEST STRP monitor blood sugars 3x/day GLUCOSE BLOOD 66665318880 No Longer Active Alina Castaneda MD PhD Active EQL TRUETEST TEST STRP Test blood sugar TID GLUCOSE BLOOD 76935270362 No Longer Active Alina Castaneda MD PhD Active FLUTICASONE PROPIONATE 50 MCG/ACT SUSP 2 sprays each nostril qDay x 30 days FLUTICASONE PROPIONATE 70099540955 No Longer Active Alina Castaneda MD PhD Active IBUPROFEN 200 MG TABS 1 Q 6 hr. PRN IBUPROFEN 01581200008 No Longer Active Alina Castaneda MD PhD Active NIACIN ER 500 MG CR-TABS 4 qHS (for triglycerides) NIACIN 16512896333 No Longer Active Alina Castaneda MD PhD Active LEVEMIR 100 UNIT/ML SOLN Take 100u at 7-8pm INSULIN DETEMIR 60696696467 Active Alina Castaneda MD PhD Active TRUETEST TEST STRP check sugars 4x/day GLUCOSE BLOOD 18351933079 Active Alina Castaneda MD PhD Active ALFUZOSIN HCL ER 10 MG [id number] 1 tablet daily ALFUZOSIN HCL 40187523790 Active Vanessa Hickey MD Active CLONAZEPAM 1 MG TABS 1 pill by mouth three times daily CLONAZEPAM 67417134730 Active Alina Castaneda MD PhD Active LOVAZA 1 GM CAPS 4 daily (for triglycerides) [id number] ETHYL ESTERS 79565379345 Active Alina Castaneda MD PhD Active SAPHRIS 5 MG SUBL by mouth twice a day ASENAPINE MALEATE 59062482399 No Longer Active Maliheh Gurdeepglestela [facility] Active ACETAMINOPHEN 500 MG TABS 2 Q 6 hr. PRN ACETAMINOPHEN 46638923597 No Longer Active Marvel MENDOZAP Active VERAPAMIL HCL ER 120 MG [id number]-IPK 1 pill by mouth twice a day, for headache prevention/control VERAPAMIL HCL 67737376607 Active Alina Castaneda MD PhD Active ORPHENADRINE CITRATE ER 100 MG [id number]-YRO 1 every 12 hr. as needed ORPHENADRINE CITRATE 28740626360 No Longer Active Alina Castaneda MD PhD Active NIACIN CR 500 MG CR-TABS 2 qHS NIACIN 22601567601 No Longer Active Alina Castaneda MD PhD Active AMOXICILLIN 500 MG CAPS 2 po BID x 10 days AMOXICILLIN 90165324900 No Longer Active Alina Castaneda MD PhD Active ZYPREXA 7.5 MG TABS 1 at HS OLANZAPINE 10384122792 Active Alina Castaneda MD PhD Active THIOTHIXENE 5 MG CAPS by mouth twice a day THIOTHIXENE 48769449426 Active Alina Castaneda MD PhD Active HYDROCODONE-ACETAMINOPHEN 7.5-325 MG TABS 1 four times a day as needed for pain HYDROCODONE-ACETAMINOPHEN 14472066179 No Longer Active Alina Castaneda MD PhD Active METFORMIN HCL ER 500 MG [id number]-[id number] Take three tablets by mouth everyday METFORMIN HCL 22494548579 Active Marvel MENDOZAP Active DOXEPIN HCL 10 MG CAPS Take 1 tablet by mouth daily DOXEPIN HCL 07470613202 No Longer Active Salina Han [facility] Active NAVANE 10 MG CAPS 1/2 tablet twice a day THIOTHIXENE No Longer Active Salina ROBBINS Active CYCLOBENZAPRINE HCL 10 MG TABS 1/2 tablet by mouth every 8 hours as needed for muscle spasms CYCLOBENZAPRINE HCL 92861080315 No Longer Active Alina Castaneda MD PhD Active BACTROBAN 2 % CREAM apply to ear and nose twice daily MUPIROCIN CALCIUM 84847273948 No Longer Active Alina Castaneda MD PhD Active HYDROCODONE-ACETAMINOPHEN 5-325 MG TABS take one tablet by mouth every four hours as needed for pain HYDROCODONE-ACETAMINOPHEN 18655138598 No Longer Active Alina Castaneda MD PhD Active ZOLPIDEM TARTRATE 10 MG TABS take at bedtime ZOLPIDEM TARTRATE 38901146547 Active Alina Castaneda MD PhD Active ZYPREXA 5 MG TABS take one tablet by mouth every evening OLANZAPINE 87240659199 No Longer Active Alina Castaneda MD PhD Active ALBUTEROL SULFATE 0.083 % NEBU SOLN one vial per nebulizer TID and PRN cough/ soa ALBUTEROL SULFATE 99917345711 No Longer Active Alina Castaneda MD PhD Active GUAIFENESIN 600 MG [id number] 1 tablet by mouth twice daily if needed for cough GUAIFENESIN 52120434785 No Longer Active Marvel MARROQUIN Active AZITHROMYCIN 500 MG SOLR 1 po q day AZITHROMYCIN 29146214445 No Longer Active Alina Castaneda MD PhD Active METOPROLOL SUCCINATE 100 MG [id number]-[id number] 1 by mouth daily for blood pressure METOPROLOL SUCCINATE 77368571439 Active Alina Castaneda MD PhD Active PROMETHAZINE-CODEINE 6.25-10 MG/5ML SYRP 1 tsp po q 6 hours prn cough PROMETHAZINE-CODEINE 83976903580 No Longer Active Alina Castaneda MD PhD Active CEFDINIR 300 MG CAPS by mouth twice a day CEFDINIR 18148152565 No Longer Active Alina Castaneda MD PhD Active METFORMIN HCL 500 MG VJ32W-HAD Take 3 tablets by mouth everyday METFORMIN HCL 80796163593 No Longer Active Alina Castaneda MD PhD Active LEVEMIR 100 UNIT/ML SOLN 90 units SQ qHS INSULIN DETEMIR 43239127618 No Longer Active Marvel MARROQUIN Active TOPROL XL 100 MG [id number]-QJN 1 @ HS METOPROLOL SUCCINATE 27153073583 No Longer Active Marvel MARROQUIN Active ALLOPURINOL 300 MG TABS Take one by mouth daily ALLOPURINOL 18736597616 Active Alina Castaneda MD PhD Active ZYPREXA 10 MG TABS Take one by mouth daily OLANZAPINE 26708993222 No Longer Active Alina Castaneda MD PhD Active NOVOLOG 100 UNIT/ML SOLN 40 units with every meal INSULIN ASPART 61333558933 No Longer Active Alina Castaneda MD PhD Active VERAPAMIL HCL CR 120 MG TAB CR 1 qPM VERAPAMIL HCL 08805823888 No Longer Active Salina Han A Active ZYPREXA 15 MG TABS Take 1 tablet by mouth daily OLANZAPINE 88672532766 No Longer Active Marvel MARROQUIN Active LISINOPRIL 20 MG TABS 1 BID LISINOPRIL 39733189774 Active Mao Rodriguez MD Active ALBUTEROL SULFATE (2.5 MG/3ML) 0.083% NEBU 1 neb tid and prn cough ALBUTEROL SULFATE 69672444742 No Longer Active Alina Castaneda MD PhD Active FLUVOXAMINE MALEATE 100 MG TABS Take one (1) tablet by mouth am, 1/2 at noon, 1 pm FLUVOXAMINE MALEATE 00930667263 Active Alina Castaneda MD PhD Active TRAVATAN Z 0.004 % SOLN 1 gtt each eye daily TRAVOPROST 10113962786 Active Alina Mendez Active LANTUS 100 UNIT/ML SOLN 60 units sq q hs INSULIN GLARGINE 87741617787 No Longer Active Alina Mendez Active UROXATRAL 10 MG [id number] Take 1 tablet by mouth daily ALFUZOSIN HCL 06014996554 Active Tanya MARROQUIN Active ALBUTEROL SULFATE (2.5 MG/3ML) 0.083% NEBU 1 neb tid and prn cough ALBUTEROL SULFATE (2.5 MG/3ML) 0.083% NEBU 234628 ALBUTEROL SULFATE Inactive ZYPREXA 15 MG TABS Take 1 tablet by mouth daily ZYPREXA 15 MG TABS 526251 OLANZAPINE Inactive VERAPAMIL HCL CR 120 MG TAB CR 1 qPM VERAPAMIL HCL CR 120 MG TAB CR VERAPAMIL HCL Inactive ZYPREXA 10 MG TABS Take one by mouth daily ZYPREXA 10 MG TABS 268389 OLANZAPINE Inactive TOPROL XL 100 MG [id number] 1 @ HS TOPROL XL 100 MG [id number]-OKB METOPROLOL SUCCINATE Inactive LEVEMIR 100 UNIT/ML SOLN 90 units SQ qHS LEVEMIR 100 UNIT/ML SOLN INSULIN DETEMIR Inactive PROMETHAZINE-CODEINE 6.25-10 MG/5ML SYRP 1 tsp po q 6 hours prn cough PROMETHAZINE-CODEINE 6.25-10 MG/5ML SYRP 208022 PROMETHAZINE- CODEINE Inactive GUAIFENESIN 600 MG [id number]-LYT 1 tablet by mouth twice daily if needed for cough GUAIFENESIN 600 MG LE32H-GEN GUAIFENESIN Inactive ALBUTEROL SULFATE 0.083 % NEBU SOLN one vial per nebulizer TID and PRN cough/ soa ALBUTEROL SULFATE 0.083 % NEBU SOLN 656448 ALBUTEROL SULFATE Inactive ZYPREXA 5 MG TABS take one tablet by mouth every evening ZYPREXA 5 MG TABS 139368 OLANZAPINE Inactive HYDROCODONE-ACETAMINOPHEN 5-325 MG TABS take one tablet by mouth every four hours as needed for pain HYDROCODONE-ACETAMINOPHEN 5-325 MG TABS 153863 HYDROCODONE-ACETAMINOPHEN Inactive BACTROBAN 2 % CREAM apply to ear and nose twice daily BACTROBAN 2 % CREAM 518787 MUPIROCIN CALCIUM Inactive CYCLOBENZAPRINE HCL 10 MG TABS 1/2 tablet by mouth every 8 hours as needed for muscle spasms CYCLOBENZAPRINE HCL 10 MG TABS 348504 CYCLOBENZAPRINE HCL Inactive NAVANE 10 MG CAPS 1/2 tablet twice a day NAVANE 10 MG CAPS THIOTHIXENE Inactive DOXEPIN HCL 10 MG CAPS Take 1 tablet by mouth daily DOXEPIN HCL 10 MG CAPS 8184940 DOXEPIN HCL Inactive HYDROCODONE-ACETAMINOPHEN 7.5-325 MG TABS 1 four times a day as needed for pain HYDROCODONE-ACETAMINOPHEN 7.5-325 MG TABS 023652 HYDROCODONE-ACETAMINOPHEN Inactive NIACIN CR 500 MG CR-TABS 2 qHS NIACIN CR 500 MG CR- TABS NIACIN Inactive ORPHENADRINE CITRATE ER 100 MG CM79Q-OHD 1 every 12 hr. as needed ORPHENADRINE CITRATE ER 100 MG [id number]-FJC ORPHENADRINE CITRATE Inactive ACETAMINOPHEN 500 MG TABS 2 Q 6 hr. PRN ACETAMINOPHEN 500 MG TABS 837961 ACETAMINOPHEN Inactive SAPHRIS 5 MG SUBL by mouth twice a day SAPHRIS 5 MG SUBL ASENAPINE MALEATE Inactive NIACIN ER 500 MG CR-TABS 4 qHS (for triglycerides) NIACIN ER 500 MG CR-TABS NIACIN Inactive IBUPROFEN 200 MG TABS 1 Q 6 hr. PRN IBUPROFEN 200 MG TABS 770098 IBUPROFEN Inactive FLUTICASONE PROPIONATE 50 MCG/ACT SUSP 2 sprays each nostril qDay x 30 days FLUTICASONE PROPIONATE 50 MCG/ACT SUSP 536756 FLUTICASONE PROPIONATE Inactive EQL TRUETEST TEST STRP Test blood sugar TID EQL TRUETEST TEST STRP GLUCOSE BLOOD Inactive TERESE CONTOUR TEST STRP monitor blood sugars 3x/day TERESE CONTOUR TEST STRP GLUCOSE BLOOD Inactive DETROL LA 4 MG [id number] Take 1 tablet by mouth daily DETROL LA 4 MG [id number] TOLTERODINE TARTRATE Inactive CEFDINIR 300 MG CAPS by mouth twice a day CEFDINIR 300 MG CAPS 025944 CEFDINIR Inactive AZITHROMYCIN 500 MG SOLR 1 po q day AZITHROMYCIN 500 MG SOLR 161744 AZITHROMYCIN Inactive AMOXICILLIN 500 MG CAPS 2 po BID x 10 days AMOXICILLIN 500 MG CAPS 456194 AMOXICILLIN Inactive Immunizations Vaccine Administration Date Value [...] Fluvirin, Fluarix, Agriflu(>=18 yo)) Fluzone (>3 yrs.) [TYD014] Influenza, seasonal, injectable pneumococcal immunization administered Pneumovax 23 [CVX33] pneumococcal polysaccharide vaccine, 23 valent Vital Signs Date Name Value Unit Range Description blood pressure, diastolic 62 mm[Hg] BP garcia [...] temperature weight E&M 248.56 [lb_av] Weight Measured blood pressure, diastolic 60 mm[Hg] BP garcia blood pressure, systolic 120 mm[Hg] BP sys height E&M 70 [in_us] Bdy height weight E&M 261 [lb_av] Weight Measured blood pressure, diastolic 76 mm[Hg] BP garcia blood pressure, systolic 137 mm[Hg] BP sys height E&M 70 [in_us] Bdy height pulse rate E&M 93 /min Heart rate temperature E&M 97.8 [degF] Body temperature weight E&M 255.19 [lb_av] Weight Measured blood pressure, diastolic 83 mm[Hg] BP garcia blood pressure, systolic 137 mm[Hg] BP sys height E&M 70 [in_us] Bdy height pulse rate E&M 123 /min Heart rate temperature E&M 98.6 [degF] Body temperature weight E&M 258 [lb_av] Weight Measured blood pressure, diastolic 77 mm[Hg] BP garcia blood pressure, systolic 135 mm[Hg] BP sys pulse rate E&M 99 /min Heart rate blood pressure, diastolic 74 mm[Hg] BP garcia blood pressure, systolic 132 mm[Hg] BP sys pulse rate E&M 111 /min Heart rate blood pressure, diastolic 60 mm[Hg] BP garcia blood pressure, systolic 140 mm[Hg] BP sys height E&M 70 [in_us] Bdy height pulse rate E&M 82 /min Heart rate weight E&M 262 [lb_av] Weight Measured blood pressure, diastolic 79 mm[Hg] BP garcia blood pressure, systolic 126 mm[Hg] BP sys pulse rate E&M 88 /min Heart rate blood pressure, diastolic 75 mm[Hg] BP garcia blood pressure, systolic 122 mm[Hg] BP sys pulse rate E&M 88 /min Heart rate blood pressure, diastolic, second observation 83 mm[Hg] BP garcia blood pressure, diastolic 85 mm[Hg] BP garcia blood pressure, systolic, second observation 161 mm[Hg] BP sys blood pressure, systolic 162 mm[Hg] BP sys pulse rate E&M 96 /min Heart rate blood pressure, diastolic 84 mm[Hg] BP garcia blood pressure, systolic 136 mm[Hg] BP sys pulse rate E&M 94 /min Heart rate blood pressure, diastolic 96 mm[Hg] BP garcia blood pressure, systolic 171 mm[Hg] BP sys pulse rate E&M 98 /min Heart rate Diagnostic Results Date Name Value Unit Range Description Lab Report: CBC, CMP, Lipid Panel, TSH, PSA, microalbumin, uric acid - Chemistry sodium, serum 130 mmol/L 410-648 2099/05/01 potassium, serum 5.2 mmol/L 3.5-5.2 chloride, serum [...] 0.40 mg/dL 0.00-1.00 cholesterol, serum 151 mg/dL 875-026 4591/05/01 triglyceride, serum, fasting 356 mg/dL 30-200 HDL [...] HGBA1C - Chemistry sodium, serum 126 mmol/L 863-481 6221/02/26 potassium, serum 4.8 mmol/L 3.5-5.2 chloride, serum [...] DIRECT - Chemistry cholesterol, serum 158 mg/dL 819-394 5143/07/11 triglyceride, serum, fasting 489 mg/dL 30-200 HDL [...] mg/dL Encounters Code Encounter Date Provider Facility CPT-13152 Level 3 Est. Patient 08:20:05 CDT Alina Castaneda MD PhD [facility] [place]-88566 Level 3 Est. Patient 15:17:18 CDT Alina Castaneda MD PhD [facility] [place]-48800 Level 3 Est. Patient 14:25:36 CENTER ADMINISTRATOR [facility]-88902 Level 3 Est. Patient 10:09:15 CENTER ADMINISTRATOR [facility] [place] CPT-04124 Level 3 Est. Patient 21:28:43 CDT Alina Castaneda MD PhD [facility] [place]-57366 Level 3 Est. Patient 15:20:11 CDT [facility] Gurdeepestela [facility]-25558 Level 4 Est. Patient 19:08:12 CDT Alina Castaneda MD PhD [facility] [place] Level 3 Est. Patient 15:06:39 CDT [facility] Gurdeepestela [facility]-84685 Level 4 Est. Patient 17:48:15 CDT Alina Castaneda MD [facility]-95250 Level 3 Est. Patient 14:53:49 CDT Alina Castaneda MD [facility]-18237 Level 3 Est. Patient 09:35:16 CDT Alina Castaneda MD [facility]-62114 Level 3 Est. Patient 12:23:22 CDT Alina Castaneda MD [facility]-85575 Level 3 Est. Patient 16:19:15 CDT Alina Castaneda MD [facility]-45469 Level 3 Est. Patient 21:39:56 CENTER ADMINISTRATOR Alina Castaneda MD [facility]-04327 Level 4 Est. Patient 14:12:56 CENTER ADMINISTRATOR Alina Castaneda MD [facility]-89888 Level 2 Est. Patient 15:34:57 CENTER ADMINISTRATOR Alina Castaneda MD [facility]-44594 Level 3 Est. Patient 12:17:04 CENTER ADMINISTRATOR Alina Castaneda MD [facility]-22049 Level 3 Est. Patient 09:18:18 CENTER ADMINISTRATOR Marvel Charles [facility]-26423 Level 2 Est. Patient 21:50:24 CDT Alina Castaneda MD [facility]-62487 Level 3 Est. Patient 09:17:28 CDT Marvel Charles [facility]-24523 Level 4 Est. Patient 18:54:02 CDT Alina Castaneda MD [facility]-99511 Level 3 Est. Patient 10:47:10 CDT Alina Castaneda MD [facility]-23814 Level 3 Est. Patient 09:22:20 [facility] Level 3 Est[facility]39[facility] CPT-22986 Level 3 Est. Patient 16:05:16 CDT Alina Castaneda MD [facility] CPT-12047 Level 3 Est. Patient 00:29:15 CDT Alina Castaneda MD [facility] CPT-11243 Level 3 Est. Patient 10:49:22 CENTER ADMINISTRATOR Marvel Thurstonestela [facility] CPT-24271 Level 3 Est. Patient 21:30:19 CENTER ADMINISTRATOR Alina Castaneda MD [facility] CPT-13236 Level 4 Est. Patient 17:04:11 CENTER ADMINISTRATOR [facility] Level 3 Est. Patient 15:34:11 CENTER ADMINISTRATOR [facility] [place] CPT-32409 Level 2 Est. Patient 12:51:58 CENTER ADMINISTRATOR Alina Castaneda MD [facility] CPT-09637 Level 3 Est. Patient 13:20:01 CENTER ADMINISTRATOR Alina Castaneda MD [facility] CPT-79670 Level 3 Est. Patient 09:23:35 CDT Alina Castaneda MD [facility] Procedures Code Procedure Name Date Entry Date Standard Description CPT-27522 Administration single or combination vaccine inc oral 11 :49:51 CDT CPT-25531 Pneumovax 11:49:51 CDT CPT-39760 Ribs unilateral 2V 12:37:22 CENTER ADMINISTRATOR CPT-36861 Chest 2V Frontal and Lat 17:15:26 CDT CPT-26265 Abx/Therapy Injection 18:54:02 CDT CPT-J0696 Rocephin 1000 mg (Ceftriaxone) 16:00:32 CDT CPT-76059 Chest 2V Frontal and Lat 15:26:45 CDT CPT-67396 Chest 2V Frontal and Lat 10:23:27 CDT CPT-41334 Venipuncture Draw Fee 10:11:00 CDT CPT-94184 Administration single or combination vaccine inc oral 11 :56:38 CDT CPT-31810 Influenza split virus > age 3 11:56:38 CDT CPT-76492 Venipuncture Draw Fee 08:49:54 CENTER ADMINISTRATOR CPT-94020 EKG Trac and Interp 17:54:19 CENTER ADMINISTRATOR
--- OUTSIDE RECORDS SUMMARY | 2018-07-02 19:42 | XMS REPORT | Clinical Summary ---
Author Author Admin, TERELL Organization [facility] Address Unknown Phone Allergies, Adverse Reactions, [...] Provider Patient Instruction HUMALOG 100 UNIT/ML SOLN take 20u with breakfast, 40 units with other meals. INSULIN LISPRO (HUMAN) 07070091835 Active Marvel MARROQUIN Active BD INSULIN SYRINGE 28G X 1/2" 1 ML MISC 1 four times per day INSULIN SYRINGE-NEEDLE U-100 82898011059 Active Alina Castaneda MD PhD Active CYCLOBENZAPRINE HCL 10 MG TABS 1 tablet by mouth three times daily, scheduled CYCLOBENZAPRINE HCL 80753051478 Active Alina Castaneda MD PhD Active TOLTERODINE TARTRATE 2 MG TABS 1 pill twice daily, for bladder TOLTERODINE TARTRATE 33316224551 Active Alina Castaneda MD PhD Active DETROL LA 4 MG [id number] Take 1 tablet by mouth daily TOLTERODINE TARTRATE 18500609651 No Longer Active Alina Castaneda MD PhD Active HYDROCODONE-ACETAMINOPHEN 5-325 MG TABS 2 tabs by mouth three times daily as needed for pain HYDROCODONE-ACETAMINOPHEN 22047579486 Active Alina Castaneda MD PhD Active TERESE CONTOUR TEST STRP monitor blood sugars 3x/day GLUCOSE BLOOD 09665938363 No Longer Active Alina Castaneda MD PhD Active EQL TRUETEST TEST STRP Test blood sugar TID GLUCOSE BLOOD 34365464208 No Longer Active Alina Castaneda MD PhD Active FLUTICASONE PROPIONATE 50 MCG/ACT SUSP 2 sprays each nostril qDay x 30 days FLUTICASONE PROPIONATE 03995799418 No Longer Active Alina Castaneda MD PhD Active IBUPROFEN 200 MG TABS 1 Q 6 hr. PRN IBUPROFEN 63161504187 No Longer Active Alina Castaneda MD PhD Active NIACIN ER 500 MG CR-TABS 4 qHS (for triglycerides) NIACIN 65235163159 No Longer Active Alina Castaneda MD PhD Active LEVEMIR 100 UNIT/ML SOLN Take 100u at 7-8pm INSULIN DETEMIR 30242896871 Active Marvel Charles [employer] Active TRUETEST TEST STRP check sugars 4x/day GLUCOSE BLOOD 59328705344 Active Alina Castaneda MD PhD Active ALFUZOSIN HCL ER 10 MG [id number] 1 tablet daily ALFUZOSIN HCL 72927696330 Active Vanessa Hickey MD Active CLONAZEPAM 1 MG TABS 1 pill by mouth three times daily CLONAZEPAM 57570046179 Active Alina Castaneda MD PhD Active LOVAZA 1 GM CAPS 4 daily (for triglycerides) NMDDS-4-ATFI ETHYL ESTERS 56208815709 Active Alina Castaneda MD PhD Active SAPHRIS 5 MG SUBL by mouth twice a day ASENAPINE MALEATE 33985116498 No Longer Active Marvel MENDOZAP Active ACETAMINOPHEN 500 MG TABS 2 Q 6 hr. PRN ACETAMINOPHEN 87426584871 No Longer [facility] Active VERAPAMIL HCL ER 120 MG [id number] 1 pill by mouth twice a day, for headache prevention/control VERAPAMIL HCL 01227854623 Active Alina Castaneda MD PhD Active ORPHENADRINE CITRATE ER 100 MG SP72I-UIW 1 every 12 hr. as needed ORPHENADRINE CITRATE 66452483073 No Longer Active Alina Castaneda MD PhD Active NIACIN CR 500 MG CR-TABS 2 qHS NIACIN 38950939771 No Longer Active Alina Castaneda MD PhD Active AMOXICILLIN 500 MG CAPS 2 po BID x 10 days AMOXICILLIN 00597473428 No Longer Active Alina Castaneda MD PhD Active ZYPREXA 7.5 MG TABS 1 at HS OLANZAPINE 42457086521 Active Alina Castaneda MD PhD Active THIOTHIXENE 5 MG CAPS by mouth twice a day THIOTHIXENE 44002673938 Active Alina Castaneda MD PhD Active HYDROCODONE-ACETAMINOPHEN 7.5-325 MG TABS 1 four times a day as needed for pain HYDROCODONE-ACETAMINOPHEN 26063370278 No Longer Active Alina Castaneda MD PhD Active METFORMIN HCL ER 500 MG [id number] Take three tablets by mouth everyday METFORMIN HCL 35443457280 Active Marvel MENDOZAP Active DOXEPIN HCL 10 MG CAPS Take 1 tablet by mouth daily DOXEPIN HCL 77150640085 No Longer Active Salina ROJAS Active NAVANE 10 MG CAPS 1/2 tablet twice a day THIOTHIXENE No Longer Active Salina ROBBINSA Active CYCLOBENZAPRINE HCL 10 MG TABS 1/2 tablet by mouth every 8 hours as needed for muscle spasms CYCLOBENZAPRINE HCL 60085639799 No Longer Active Alina Castaneda MD PhD Active BACTROBAN 2 % CREAM apply to ear and nose twice daily MUPIROCIN CALCIUM 45314869023 No Longer Active Alina Castaneda MD PhD Active HYDROCODONE-ACETAMINOPHEN 5-325 MG TABS take one tablet by mouth every four hours as needed for pain HYDROCODONE-ACETAMINOPHEN 46450637395 No Longer Active Alina Castaneda MD PhD Active ZOLPIDEM TARTRATE 10 MG TABS take at bedtime ZOLPIDEM TARTRATE 01180400640 Active Alina Castaneda MD PhD Active ZYPREXA 5 MG TABS take one tablet by mouth every evening OLANZAPINE 55421747659 No Longer Active Alina Castaneda MD PhD Active ALBUTEROL SULFATE 0.083 % NEBU SOLN one vial per nebulizer TID and PRN cough/ soa ALBUTEROL SULFATE 20209405227 No Longer Active Alina Castaneda MD PhD Active GUAIFENESIN 600 MG [id number] 1 tablet by mouth twice daily if needed for cough GUAIFENESIN 09472436561 No Longer Active Marvel Charles [employer] Active AZITHROMYCIN 500 MG SOLR 1 po q day AZITHROMYCIN 49653654852 No Longer Active Alina Castaneda MD PhD Active METOPROLOL SUCCINATE 100 MG ED84J-PXR 1 by mouth daily for blood pressure METOPROLOL SUCCINATE 59972589914 Active Alina Castaneda MD PhD Active PROMETHAZINE-CODEINE 6.25-10 MG/5ML SYRP 1 tsp po q 6 hours prn cough PROMETHAZINE-CODEINE 81114745432 No Longer Active Alina Castaneda MD PhD Active CEFDINIR 300 MG CAPS by mouth twice a day CEFDINIR 59161921398 No Longer Active Alina Castaneda MD PhD Active METFORMIN HCL 500 MG [id number] Take 3 tablets by mouth everyday METFORMIN HCL 67318790814 No Longer Active Alina Castaneda MD PhD Active LEVEMIR 100 UNIT/ML SOLN 90 units SQ qHS INSULIN DETEMIR 28953062449 No Longer Active Marvel MARROQUIN Active TOPROL XL 100 MG [id number]-WAJ 1 @ HS METOPROLOL SUCCINATE 20136995411 No Longer Active Marvel MARROQUIN Active ALLOPURINOL 300 MG TABS Take one by mouth daily ALLOPURINOL 13984632864 Active Alina Castaneda MD PhD Active ZYPREXA 10 MG TABS Take one by mouth daily OLANZAPINE 03363585720 No Longer Active Alina Castaneda MD PhD Active NOVOLOG 100 UNIT/ML SOLN 40 units with every meal INSULIN ASPART 25828254556 No Longer Active Alina Castaneda MD PhD Active VERAPAMIL HCL CR 120 MG TAB CR 1 qPM VERAPAMIL HCL 44658187522 No Longer Active Salina Emely [facility] Active ZYPREXA 15 MG TABS Take 1 tablet by mouth daily OLANZAPINE 89674082928 No Longer Active Marvel MARROQUIN Active LISINOPRIL 20 MG TABS 1 BID LISINOPRIL 71937201339 Active Mao Rodriguez MD Active ALBUTEROL SULFATE (2.5 MG/3ML) 0.083% NEBU 1 neb tid and prn cough ALBUTEROL SULFATE 29711251765 No Longer Active Alina Castaneda MD PhD Active FLUVOXAMINE MALEATE 100 MG TABS Take one (1) tablet by mouth am, 1/2 at noon, 1 pm FLUVOXAMINE MALEATE 02175292494 Active Alina Castaneda MD PhD Active TRAVATAN Z 0.004 % SOLN 1 gtt each eye daily TRAVOPROST 98089370174 Active Alina Mendez Active LANTUS 100 UNIT/ML SOLN 60 units sq q hs INSULIN GLARGINE 46922194330 No Longer Active Alina Mendez Active UROXATRAL 10 MG [id number] Take 1 tablet by mouth daily ALFUZOSIN HCL 52351637113 Active Tanya MARROQUIN Active ALBUTEROL SULFATE (2.5 MG/3ML) 0.083% NEBU 1 neb tid and prn cough ALBUTEROL SULFATE (2.5 MG/3ML) 0.083% NEBU 545993 ALBUTEROL SULFATE Inactive ZYPREXA 15 MG TABS Take 1 tablet by mouth daily ZYPREXA 15 MG TABS 697558 OLANZAPINE Inactive VERAPAMIL HCL CR 120 MG TAB CR 1 qPM VERAPAMIL HCL CR 120 MG TAB CR VERAPAMIL HCL Inactive ZYPREXA 10 MG TABS Take one by mouth daily ZYPREXA 10 MG TABS 010050 OLANZAPINE Inactive TOPROL XL 100 MG [id number] 1 @ HS TOPROL XL 100 MG AP00E-FKN METOPROLOL SUCCINATE Inactive LEVEMIR 100 UNIT/ML SOLN 90 units SQ qHS LEVEMIR 100 UNIT/ML SOLN INSULIN DETEMIR Inactive PROMETHAZINE-CODEINE 6.25-10 MG/5ML SYRP 1 tsp po q 6 hours prn cough PROMETHAZINE-CODEINE 6.25-10 MG/5ML SYRP 388090 PROMETHAZINE- CODEINE Inactive GUAIFENESIN 600 MG SY06Y-FUH 1 tablet by mouth twice daily if needed for cough GUAIFENESIN 600 MG FR70H-IBD GUAIFENESIN Inactive ALBUTEROL SULFATE 0.083 % NEBU SOLN one vial per nebulizer TID and PRN cough/ soa ALBUTEROL SULFATE 0.083 % NEBU SOLN 413441 ALBUTEROL SULFATE Inactive ZYPREXA 5 MG TABS take one tablet by mouth every evening ZYPREXA 5 MG TABS 114273 OLANZAPINE Inactive HYDROCODONE-ACETAMINOPHEN 5-325 MG TABS take one tablet by mouth every four hours as needed for pain HYDROCODONE-ACETAMINOPHEN 5-325 MG TABS 792341 HYDROCODONE-ACETAMINOPHEN Inactive BACTROBAN 2 % CREAM apply to ear and nose twice daily BACTROBAN 2 % CREAM 890633 MUPIROCIN CALCIUM Inactive CYCLOBENZAPRINE HCL 10 MG TABS 1/2 tablet by mouth every 8 hours as needed for muscle spasms CYCLOBENZAPRINE HCL 10 MG TABS 737781 CYCLOBENZAPRINE HCL Inactive NAVANE 10 MG CAPS 1/2 tablet twice a day NAVANE 10 MG CAPS THIOTHIXENE Inactive DOXEPIN HCL 10 MG CAPS Take 1 tablet by mouth daily DOXEPIN HCL 10 MG CAPS 2259707 DOXEPIN HCL Inactive HYDROCODONE-ACETAMINOPHEN 7.5-325 MG TABS 1 four times a day as needed for pain HYDROCODONE-ACETAMINOPHEN 7.5-325 MG TABS 985830 HYDROCODONE-ACETAMINOPHEN Inactive NIACIN CR 500 MG CR-TABS 2 qHS NIACIN CR 500 MG CR- TABS NIACIN Inactive ORPHENADRINE CITRATE ER 100 MG [id number] 1 every 12 hr. as needed ORPHENADRINE CITRATE ER 100 MG [id number]-DPL ORPHENADRINE CITRATE Inactive ACETAMINOPHEN 500 MG TABS 2 Q 6 hr. PRN ACETAMINOPHEN 500 MG TABS 029899 ACETAMINOPHEN Inactive SAPHRIS 5 MG SUBL by mouth twice a day SAPHRIS 5 MG SUBL ASENAPINE MALEATE Inactive NIACIN ER 500 MG CR-TABS 4 qHS (for triglycerides) NIACIN ER 500 MG CR-TABS NIACIN Inactive IBUPROFEN 200 MG TABS 1 Q 6 hr. PRN IBUPROFEN 200 MG TABS 325446 IBUPROFEN Inactive FLUTICASONE PROPIONATE 50 MCG/ACT SUSP 2 sprays each nostril qDay x 30 days FLUTICASONE PROPIONATE 50 MCG/ACT SUSP 566911 FLUTICASONE PROPIONATE Inactive EQL TRUETEST TEST STRP Test blood sugar TID EQL TRUETEST TEST STRP GLUCOSE BLOOD Inactive TERESE CONTOUR TEST STRP monitor blood sugars 3x/day TERESE CONTOUR TEST STRP GLUCOSE BLOOD Inactive DETROL LA 4 MG [id number] Take 1 tablet by mouth daily DETROL LA 4 MG [id number] TOLTERODINE TARTRATE Inactive CEFDINIR 300 MG CAPS by mouth twice a day CEFDINIR 300 MG CAPS 372513 CEFDINIR Inactive AZITHROMYCIN 500 MG SOLR 1 po q day AZITHROMYCIN 500 MG SOLR 573478 AZITHROMYCIN Inactive AMOXICILLIN 500 MG CAPS 2 po BID x 10 days AMOXICILLIN 500 MG CAPS 362034 AMOXICILLIN Inactive Immunizations Vaccine Administration Date Value [...] Fluvirin, Fluarix, Agriflu(>=18 yo)) Fluzone (>3 yrs.) [SMQ833] Influenza, seasonal, injectable pneumococcal immunization administered Pneumovax [...] E&M - 8867-4 111 /min Heart rate Diagnostic Results Date Name Value Unit Range Description Lab Report: Basic Metabolic Panel, HGBA1C - Chemistry sodium, serum 130 mmol/L [phone]/06/09 potassium, serum 4.0 mmol/L 3.5-5.2 chloride, serum [...] acid - Chemistry sodium, serum 130 mmol/L [phone]/05/01 potassium, serum 5.2 mmol/L 3.5-5.2 chloride, serum [...] 0.40 mg/dL 0.00-1.00 cholesterol, serum 151 mg/dL 534-660 2083/05/01 triglyceride, serum, fasting 356 mg/dL 30-200 HDL [...] HGBA1C - Chemistry sodium, serum 126 mmol/L 511-108 4523/02/26 potassium, serum 4.8 mmol/L 3.5-5.2 chloride, serum [...] DIRECT - Chemistry cholesterol, serum 158 mg/dL 553-353 1702/07/11 triglyceride, serum, fasting 489 mg/dL 30-200 HDL [...] mg/dL Encounters Code Encounter Date Provider Facility CPT-59137 Level 3 Est. Patient 13:19:10 CDT [address] [facility] CPT-86333 Level 3 Est. Patient 08:20:05 CDT Alina Castaneda MD PhD [facility] CPT-59058 Level 3 Est. Patient 15:17:18 CDT Alina Castaneda MD PhD [facility] CPT-65169 Level 3 Est. Patient 14:25:36 BUCK SWAMPER Marvel Charles [facility] CPT-97954 Level 3 Est. Patient 10:09:15 BUCK SWAMPER Marvel Charles [facility]ly named [facility]-42174 Level 3 Est. Patient 21:28:43 CDT Alina Castaneda MD [facility]-57445 Level 3 Est. Patient 15:20:11 CDT Marvel Charles Formerly named [facility]-71747 Level 4 Est. Patient 19:08:12 CDT Alian Castaneda MD [facility]-08205 Level 3 Est. Patient 15:06:39 [facility] Est[facility] Patient 17:48:15 CDT Alina Castaneda MD [facility]-65000 Level 3 Est. Patient 14:53:49 CDT Alina Castaneda MD [facility]-05135 Level 3 Est. Patient 09:35:16 CDT Alina Castaneda MD [facility]-17896 Level 3 Est. Patient 12:23:22 CDT Alina Castaneda MD [facility]-82454 Level 3 Est. Patient 16:19:15 CDT Alina Castaneda MD [facility]-47785 Level 3 Est. Patient 21:39:56 BUCK SWAMPER Alina Castaneda MD [facility]-49668 Level 4 Est. Patient 14:12:56 BUCK SWAMPER Alina Castaneda MD [facility]-95754 Level 2 Est. Patient 15:34:57 BUCK SWAMPER Alina Castaneda MD [facility]-75284 Level 3 Est. Patient 12:17:04 BUCK SWAMPER Alina Castaneda MD [facility]-92307 Level 3 Est. Patient 09:18:18 BUCK SWAMPER Marvel Charles [facility] named [facility]-92363 Level 2 Est. Patient 21:50:24 CDT Alina Castaneda MD [facility]69753 Level 3 Est. Patient 09:17:28 CDT Marvel Charles Formerly named [facility]-05726 Level 4 Est. Patient 18:54:02 CDT Alina Castaneda MD [facility]83819 Level 3 Est. Patient 10:47:10 CDT Alina Castaneda MD [facility]98997 Level 3 Est. Patient 09:22:20 CDT Marvel Charles Formerly named [facility]-05077 Level 3 Est. Patient 16:39:43 [facility]-92122 Level 3 Est. Patient 16:05:16 CDT Alina Castaneda MD [facility]-71706 Level 3 Est. Patient 00:29:15 CDT Alina Castaneda MD [facility]16151 Level 3 Est. Patient 10:49:22 BUCK SWAMPER Brooksjohn Charles Formerly named [facility]-85177 Level 3 Est. Patient 21:30:19 BUCK SWAMPER Alina Castaneda MD [facility]54480 Level 4 Est. Patient 17:04:11 BUCK SWAMPER Marvel Charles Formerly named [facility]-12393 Level 3 Est. Patient 15:34:11 BUCK SWAMPER Maliheh Ziglari [employer] [facility] CPT-81699 Level 2 Est. Patient 12:51:58 BUCK SWAMPER Alina Castaneda MD PhD [facility] CPT-47475 Level 3 Est. Patient 13:20:01 BUCK SWAMPER Alina Castaneda MD PhD [facility] CPT-27722 Level 3 Est. Patient 09:23:35 CDT Alina Castaneda MD PhD [facility] Procedures Code Procedure Name Date Entry Date Standard Description CPT-13150 Administration single or combination vaccine inc oral 11 :49:51 CDT CPT-04956 Pneumovax 11:49:51 CDT CPT-38078 Ribs unilateral 2V 12:37:22 BUCK SWAMPER CPT-94667 Chest 2V Frontal and Lat 17:15:26 CDT CPT-76328 Abx/Therapy Injection 18:54:02 CDT CPT-J0696 Rocephin 1000 mg (Ceftriaxone) 16:00:32 CDT CPT-43501 Chest 2V Frontal and Lat 15:26:45 CDT CPT-62070 Chest 2V Frontal and Lat 10:23:27 CDT CPT-87379 Venipuncture Draw Fee 10:11:00 CDT CPT-36652 Administration single or combination vaccine inc oral 11 :56:38 CDT CPT-43773 Influenza split virus > age 3 11:56:38 CDT CPT-95446 Venipuncture Draw Fee 08:49:54 BUCK SWAMPER CPT-94946 EKG Trac and Interp 17:54:19 BUCK SWAMPER
--- OUTSIDE RECORDS SUMMARY | 2018-07-02 19:43 | XMS REPORT | Clinical Summary ---
Author Author Admin, TERELL Organization [facility] Address Unknown Phone Allergies, Adverse Reactions, [...] mouth three times daily, scheduled CYCLOBENZAPRINE HCL 79553370825 Active Alina Castaneda MD PhD Active HUMALOG 100 UNIT/ML SOLN take 40u with each meal INSULIN LISPRO (HUMAN) 98565804682 Active Alina Castaneda MD PhD Active TOLTERODINE TARTRATE 2 MG TABS 1 pill twice daily, for bladder TOLTERODINE TARTRATE 51519059255 Active Alina Castaneda MD PhD Active DETROL LA 4 MG [id number] Take 1 tablet by mouth daily TOLTERODINE TARTRATE 57729380083 No Longer Active Alina Castaneda MD PhD Active HYDROCODONE-ACETAMINOPHEN 5-325 MG TABS 2 tabs by mouth three times daily as needed for pain HYDROCODONE-ACETAMINOPHEN 10725496123 Active Alina Castaneda MD PhD Active TERESE CONTOUR TEST STRP monitor blood sugars 3x/day GLUCOSE BLOOD 70202673511 No Longer Active Alina Castaneda MD PhD Active EQL TRUETEST TEST STRP Test blood sugar TID GLUCOSE BLOOD 93830515049 No Longer Active Alina Castaneda MD PhD Active FLUTICASONE PROPIONATE 50 MCG/ACT SUSP 2 sprays each nostril qDay x 30 days FLUTICASONE PROPIONATE 92435718322 No Longer Active Alina Castaneda MD PhD Active IBUPROFEN 200 MG TABS 1 Q 6 hr. PRN IBUPROFEN 01010589231 No Longer Active Alina Castaneda MD PhD Active NIACIN ER 500 MG CR-TABS 4 qHS (for triglycerides) NIACIN 34226717213 No Longer Active Alina Castaneda MD PhD Active LEVEMIR 100 UNIT/ML SOLN Take 100u at 7-8pm INSULIN DETEMIR 27039055200 Active Alina Castaneda MD PhD Active TRUETEST TEST STRP check sugars 4x/day GLUCOSE BLOOD 41346640401 Active Alina Castaneda MD PhD Active ALFUZOSIN HCL ER 10 MG [id number] 1 tablet daily ALFUZOSIN HCL 22562713819 Active Vanessa Hickey MD Active CLONAZEPAM 1 MG TABS 1 pill by mouth three times daily CLONAZEPAM 13808050589 Active Alina Castaneda MD PhD Active LOVAZA 1 GM CAPS 4 daily (for triglycerides) [id number] ETHYL ESTERS 71000368403 Active Alina Castaneda MD PhD Active SAPHRIS 5 MG SUBL by mouth twice a day ASENAPINE MALEATE 20780426375 No Longer Active Maljohn Ziglari [employer]IC Active ACETAMINOPHEN 500 MG TABS 2 Q 6 hr. PRN ACETAMINOPHEN 48694782210 No Longer Active Maljohn Mackenzieglari [employer] MECH[employer]IC Active VERAPAMIL HCL ER 120 MG [id number] 1 pill by mouth twice a day, for headache prevention/control VERAPAMIL HCL 59293299931 Active Alina Castaneda MD PhD Active ORPHENADRINE CITRATE ER 100 MG [id number]-ZCI 1 every 12 hr. as needed ORPHENADRINE CITRATE 74988737322 No Longer Active Alina Castaneda MD PhD Active NIACIN CR 500 MG CR-TABS 2 qHS NIACIN 81216295995 No Longer Active Alina Castaneda MD PhD Active AMOXICILLIN 500 MG CAPS 2 po BID x 10 days AMOXICILLIN 70137997865 No Longer Active Alina Castaneda MD PhD Active ZYPREXA 7.5 MG TABS 1 at HS OLANZAPINE 96742926164 Active Alina Castaneda MD PhD Active THIOTHIXENE 5 MG CAPS by mouth twice a day THIOTHIXENE 21982148462 Active Alina Castaneda MD PhD Active HYDROCODONE-ACETAMINOPHEN 7.5-325 MG TABS 1 four times a day as needed for pain HYDROCODONE-ACETAMINOPHEN 28241645318 No Longer Active Alina Castaneda MD PhD Active METFORMIN HCL ER 500 MG [id number] Take three tablets by mouth everyday METFORMIN HCL 83877536172 Active Zainnivia 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 DOXEPIN HCL 10 MG CAPS Take 1 tablet by mouth daily DOXEPIN HCL 28574068115 No Longer Active Salina Han A Active NAVANE 10 MG CAPS 1/2 tablet twice a day THIOTHIXENE No Longer Active Salina Han [facility] Active CYCLOBENZAPRINE HCL 10 MG TABS 1/2 tablet by mouth every 8 hours as needed for muscle spasms CYCLOBENZAPRINE HCL 83963278149 No Longer Active Alina Castaneda MD PhD Active BACTROBAN 2 % CREAM apply to ear and nose twice daily MUPIROCIN CALCIUM 91389071688 No Longer Active Alina Castaneda MD PhD Active HYDROCODONE-ACETAMINOPHEN 5-325 MG TABS take one tablet by mouth every four hours as needed for pain HYDROCODONE-ACETAMINOPHEN 26467380933 No Longer Active Alina Castaneda MD PhD Active ZOLPIDEM TARTRATE 10 MG TABS take at bedtime ZOLPIDEM TARTRATE 89074186903 Active Alina Castaneda MD PhD Active ZYPREXA 5 MG TABS take one tablet by mouth every evening OLANZAPINE 20043859611 No Longer Active Alina Castaneda MD PhD Active BD INSULIN SYRINGE 28G X 1/2" 1 ML MISC use as directed INSULIN SYRINGE -NEEDLE U-100 57642149959 Active Alina Castaneda MD PhD Active ALBUTEROL SULFATE 0.083 % NEBU SOLN one vial per nebulizer TID and PRN cough/ soa ALBUTEROL SULFATE 24570706072 No Longer Active Alina Castaneda MD PhD Active GUAIFENESIN 600 MG [id number] 1 tablet by mouth twice daily if needed for cough GUAIFENESIN 10553930433 No Longer Active Marvel MARROQUIN Active AZITHROMYCIN 500 MG SOLR 1 po q day AZITHROMYCIN 36251162982 No Longer Active Alina Castaneda MD PhD Active METOPROLOL SUCCINATE 100 MG LL84G-RNF 1 by mouth daily for blood pressure METOPROLOL SUCCINATE 34646458012 Active Alina Castaneda MD PhD Active PROMETHAZINE-CODEINE 6.25-10 MG/5ML SYRP 1 tsp po q 6 hours prn cough PROMETHAZINE-CODEINE 31748937224 No Longer Active Alina Castaneda MD PhD Active CEFDINIR 300 MG CAPS by mouth twice a day CEFDINIR 32799293217 No Longer Active Alina Castaneda MD PhD Active METFORMIN HCL 500 MG LV68R-NDJ Take 3 tablets by mouth everyday METFORMIN HCL 91855825156 No Longer Active Alina Castaneda MD PhD Active LEVEMIR 100 UNIT/ML SOLN 90 units SQ qHS INSULIN DETEMIR 44005686905 No Longer Active Marvel MARROQUIN Active TOPROL XL 100 MG [id number]-SNV 1 @ HS METOPROLOL SUCCINATE 58786232231 No Longer Active Marvel MARROQUIN Active ALLOPURINOL 300 MG TABS Take one by mouth daily ALLOPURINOL 95361674758 Active Alina Castaneda MD PhD Active ZYPREXA 10 MG TABS Take one by mouth daily OLANZAPINE 63759828287 No Longer Active Alina Castaneda MD PhD Active NOVOLOG 100 UNIT/ML SOLN 40 units with every meal INSULIN ASPART 91161820117 No Longer Active Alina Castaneda MD PhD Active VERAPAMIL HCL CR 120 MG TAB CR 1 qPM VERAPAMIL HCL 08142488198 No Longer Active Salina Han A Active ZYPREXA 15 MG TABS Take 1 tablet by mouth daily OLANZAPINE 46008864419 No Longer Active Marvel MARROQUIN Active LISINOPRIL 20 MG TABS 1 BID LISINOPRIL 65878940240 Active Mao Rodriguez MD Active ALBUTEROL SULFATE (2.5 MG/3ML) 0.083% NEBU 1 neb tid and prn cough ALBUTEROL SULFATE 82332516210 No Longer Active Alina Castaneda MD PhD Active FLUVOXAMINE MALEATE 100 MG TABS Take one (1) tablet by mouth am, 05/25 at noon, 1 pm FLUVOXAMINE MALEATE 20893703045 Active Alina Castaneda MD PhD Active TRAVATAN Z 0.004 % SOLN 1 gtt each eye daily TRAVOPROST 55669814675 Active Alina Mendez Active LANTUS 100 UNIT/ML SOLN 60 units sq q hs INSULIN GLARGINE 32803026761 No Longer Active Alina Mendez Active UROXATRAL 10 MG [id number]-USU Take 1 tablet by mouth daily ALFUZOSIN HCL 96844150521 Active Tanya MARROQUIN Active ALBUTEROL SULFATE (2.5 MG/3ML) 0.083% NEBU 1 neb tid and prn cough ALBUTEROL SULFATE (2.5 MG/3ML) 0.083% NEBU 524166 ALBUTEROL SULFATE Inactive ZYPREXA 15 MG TABS Take 1 tablet by mouth daily ZYPREXA 15 MG TABS 040758 OLANZAPINE Inactive VERAPAMIL HCL CR 120 MG TAB CR 1 qPM VERAPAMIL HCL CR 120 MG TAB CR VERAPAMIL HCL Inactive ZYPREXA 10 MG TABS Take one by mouth daily ZYPREXA 10 MG TABS 877065 OLANZAPINE Inactive TOPROL XL 100 MG [id number] 1 @ HS TOPROL XL 100 MG ZQ27O-SDE METOPROLOL SUCCINATE Inactive LEVEMIR 100 UNIT/ML SOLN 90 units SQ qHS LEVEMIR 100 UNIT/ML SOLN INSULIN DETEMIR Inactive PROMETHAZINE-CODEINE 6.25-10 MG/5ML SYRP 1 tsp po q 6 hours prn cough PROMETHAZINE-CODEINE 6.25-10 MG/5ML SYRP 092679 PROMETHAZINE- CODEINE Inactive GUAIFENESIN 600 MG JD61U-OPO 1 tablet by mouth twice daily if needed for cough GUAIFENESIN 600 MG [id number]-HIH GUAIFENESIN Inactive ALBUTEROL SULFATE 0.083 % NEBU SOLN one vial per nebulizer TID and PRN cough/ soa ALBUTEROL SULFATE 0.083 % NEBU SOLN 018306 ALBUTEROL SULFATE Inactive ZYPREXA 5 MG TABS take one tablet by mouth every evening ZYPREXA 5 MG TABS 933047 OLANZAPINE Inactive HYDROCODONE-ACETAMINOPHEN 5-325 MG TABS take one tablet by mouth every four hours as needed for pain HYDROCODONE-ACETAMINOPHEN 5-325 MG TABS 000826 HYDROCODONE-ACETAMINOPHEN Inactive BACTROBAN 2 % CREAM apply to ear and nose twice daily BACTROBAN 2 % CREAM 821396 MUPIROCIN CALCIUM Inactive CYCLOBENZAPRINE HCL 10 MG TABS 1/2 tablet by mouth every 8 hours as needed for muscle spasms CYCLOBENZAPRINE HCL 10 MG TABS 626965 CYCLOBENZAPRINE HCL Inactive NAVANE 10 MG CAPS 1/2 tablet twice a day NAVANE 10 MG CAPS THIOTHIXENE Inactive DOXEPIN HCL 10 MG CAPS Take 1 tablet by mouth daily DOXEPIN HCL 10 MG CAPS 6463046 DOXEPIN HCL Inactive HYDROCODONE-ACETAMINOPHEN 7.5-325 MG TABS 1 four times a day as needed for pain HYDROCODONE-ACETAMINOPHEN 7.5-325 MG TABS 298871 HYDROCODONE-ACETAMINOPHEN Inactive NIACIN CR 500 MG CR-TABS 2 qHS NIACIN CR 500 MG CR- TABS NIACIN Inactive ORPHENADRINE CITRATE ER 100 MG FY86K-FLI 1 every 12 hr. as needed ORPHENADRINE CITRATE ER 100 MG [id number] ORPHENADRINE CITRATE Inactive ACETAMINOPHEN 500 MG TABS 2 Q 6 hr. PRN ACETAMINOPHEN 500 MG TABS 209169 ACETAMINOPHEN Inactive SAPHRIS 5 MG SUBL by mouth twice a day SAPHRIS 5 MG SUBL ASENAPINE MALEATE Inactive NIACIN ER 500 MG CR-TABS 4 qHS (for triglycerides) NIACIN ER 500 MG CR-TABS NIACIN Inactive IBUPROFEN 200 MG TABS 1 Q 6 hr. PRN IBUPROFEN 200 MG TABS 170691 IBUPROFEN Inactive FLUTICASONE PROPIONATE 50 MCG/ACT SUSP 2 sprays each nostril qDay x 30 days FLUTICASONE PROPIONATE 50 MCG/ACT SUSP 428137 FLUTICASONE PROPIONATE Inactive EQL TRUETEST TEST STRP Test blood sugar TID EQL TRUETEST TEST STRP GLUCOSE BLOOD Inactive TERESE CONTOUR TEST STRP monitor blood sugars 3x/day TERESE CONTOUR TEST STRP GLUCOSE BLOOD Inactive DETROL LA 4 MG [id number] Take 1 tablet by mouth daily DETROL LA 4 MG [id number] TOLTERODINE TARTRATE Inactive CEFDINIR 300 MG CAPS by mouth twice a day CEFDINIR 300 MG CAPS 951246 CEFDINIR Inactive AZITHROMYCIN 500 MG SOLR 1 po q day AZITHROMYCIN 500 MG SOLR 746272 AZITHROMYCIN Inactive AMOXICILLIN 500 MG CAPS 2 po BID x 10 days AMOXICILLIN 500 MG CAPS 957037 AMOXICILLIN Inactive Immunizations Vaccine Administration Date Value [...] Fluvirin, Fluarix, Agriflu(>=18 yo)) Fluzone (>3 yrs.) [IUI901] Influenza, seasonal, injectable pneumococcal immunization administered Pneumovax [...] HGBA1C - Chemistry sodium, serum 126 mmol/L 054-084 7438/02/26 potassium, serum 4.8 mmol/L 3.5-5.2 chloride, serum [...] DIRECT - Chemistry cholesterol, serum 158 mg/dL 752-138 4018/07/11 triglyceride, serum, fasting 489 mg/dL 30-200 HDL [...] mg/dL Encounters Code Encounter Date Provider Facility CPT-25843 Level 3 Est. Patient 15:17:18 CDT Alina Castaneda MD PhD [facility] CPT-31650 Level 3 Est. Patient 14:25:36 [employer] [facility] CPT-80608 Level 3 Est. Patient 10:09:15 [employer] [facility] CPT-52268 Level 3 Est. Patient 21:28:43 CDT Alina Castaneda MD PhD [facility] CPT-79007 Level 3 Est. Patient 15:20:11 CDT [facility] Gurdeepestela [facility] CPT-76425 Level 4 Est. Patient 19:08:12 CDT Alina Castaneda MD PhD [facility] CPT-93109 Level 3 Est. Patient 15:06:39 CDT [facility] CPT-59154 Level 4 Est. Patient 17:48:15 CDT Alina Castaneda MD [facility]-22783 Level 3 Est. Patient 14:53:49 CDT lAina Castaneda MD [facility]-15129 Level 3 Est. Patient 09:35:16 CDT Alina Castaneda MD [facility]-63605 Level 3 Est. Patient 12:23:22 CDT Alina Castaneda MD [facility]-26285 Level 3 Est. Patient 16:19:15 CDT Alina Castaneda MD [facility]-57949 Level 3 Est. Patient 21:39:56 [employer] Alina Castaneda MD [facility]-91679 Level 4 Est. Patient 14:12:56 [employer] Alina Castaneda MD [facility]-30121 Level 2 Est. Patient 15:34:57 [employer] Alina Castaneda MD [facility]-44231 Level 3 Est. Patient 12:17:04 [employer] Alina Castaneda MD [facility]-85244 Level 3 Est. Patient 09:18:18 [employer] Marvel Charles [facility]-60017 Level 2 Est. Patient 21:50:24 CDT Alina Castaneda MD [facility]-56576 Level 3 Est. Patient 09:17:28 CDT Marvel Charles [facility]-05005 Level 4 Est. Patient 18:54:02 CDT Alina Castaneda MD [facility]-94424 Level 3 Est. Patient 10:47:10 CDT Alina Castaneda MD [facility]-05637 Level 3 Est. Patient 09:22:20 CDT Marvel Charles [facility] CPT-67980 Level 3 Est. Patient 16:39:43 CDT [facility] Level 3 Est. Patient 16:05:16 CDT Alina Castaneda MD [facility] CPT-79605 Level 3 Est. Patient 00:29:15 CDT Alina Castaneda MD [facility] CPT-09766 Level 3 Est. Patient 10:49:22 [employer] Brooksnivia Thurstonestela [facility] CPT-15614 Level 3 Est. Patient 21:30:19 [employer] Alina Castaneda MD [facility] CPT-53508 Level 4 Est. Patient 17:04:11 [employer] [facility] C[facility]-03337 Level 3 Est. Patient 15:34:11 [employer] [facility] CPT-48868 Level 2 Est. Patient 12:51:58 [employer] Alina Castaneda MD [facility] CPT-54343 Level 3 Est. Patient 13:20:01 [employer] Alina Castaneda MD [facility] CPT-06087 Level 3 Est. Patient 09:23:35 CDT Alina Castaneda MD [facility] Procedures Code Procedure Name Date Entry Date Standard Description CPT-82736 Administration single or combination vaccine inc oral 11 :49:51 CDT CPT-09609 Pneumovax 11:49:51 CDT CPT-29398 Ribs unilateral 2V 12:37:22 [employer] CPT-12353 Chest 2V Frontal and Lat 17:15:26 CDT CPT-35083 Abx/Therapy Injection 18:54:02 CDT CPT-J0696 Rocephin 1000 mg (Ceftriaxone) 16:00:32 CDT CPT-22792 Chest 2V Frontal and Lat 15:26:45 CDT CPT-74532 Chest 2V Frontal and Lat 10:23:27 CDT CPT-12883 Venipuncture Draw Fee 10:11:00 CDT CPT-09915 Administration single or combination vaccine inc oral 11 :56:38 CDT CPT-47990 Influenza split virus > age 3 11:56:38 CDT CPT-34916 Venipuncture Draw Fee 08:49:54 [employer] CPT-45296 EKG Trac and Interp 17:54:19 [employer]
--- OUTSIDE RECORDS SUMMARY | 2018-07-02 19:44 | XMS REPORT | Clinical Summary ---
Author Author Admin, TERELL Organization [facility] Address Unknown Phone Unavailable Allergies, Adverse [...] PhD Obsessive-compulsive disorders GLAUCOMA NOS 365.9 Active lAina Castaneda MD PhD Unspecified glaucoma GOUT, UNSPECIFIED [...] Active Alina Castaneda MD PhD Unspecified psychosis WOUND, OPEN, NOSE ICD-873.20 Inactive Alina Castaneda [...] by mouth nightly, for pain MORPHINE SULFATE 90335672079 Active Michele Chacon MD Active LATUDA 80 MG TABS 1 tab by mouth every evening LURASIDONE HCL 07261033793 Active Alina Castaneda MD PhD Active UROXATRAL 10 MG [id number] Take 1 tablet by mouth daily ALFUZOSIN HCL 79981809966 No Longer Active Alina Castaneda MD PhD Active THIOTHIXENE 5 MG CAPS by mouth twice a day THIOTHIXENE 93492907682 No Longer Active Alina Castaneda MD PhD Active ZYPREXA 7.5 MG TABS 1 at HS OLANZAPINE 14552180924 No Longer Active Alina Castaneda MD PhD Active HUMALOG 100 UNIT/ML SOLN Take 20 units with breakfast, 10u with lunch and suppetr. INSULIN LISPRO (HUMAN) 79513241634 Active Maliheh Ziglari PROJECT MANAGEMENT ANALYST Active LEVEMIR 100 UNIT/ML SOLN Take 70 u at 7-8pm INSULIN DETEMIR 51400995986 Active Maliheh Ziglari PROJECT MANAGEMENT ANALYST Active BD INSULIN SYRINGE 28G X 1/2" 1 ML MISC 1 four times per day INSULIN SYRINGE-NEEDLE U-100 28094847799 Active Maliheh Ziglari PROJECT MANAGEMENT ANALYST Active CYCLOBENZAPRINE HCL 10 MG TABS 1 tablet by mouth three times daily, scheduled CYCLOBENZAPRINE HCL 70730005381 Active Alina Castaneda MD PhD Active TOLTERODINE TARTRATE 2 MG TABS 1 pill twice daily, for bladder TOLTERODINE TARTRATE 20791596012 Active Alina Castaneda MD PhD Active DETROL LA 4 MG [id number] Take 1 tablet by mouth daily TOLTERODINE TARTRATE 19150610668 No Longer Active Alina Castaneda MD PhD Active HYDROCODONE-ACETAMINOPHEN 5-325 MG TABS 2 tabs by mouth three times daily as needed for pain HYDROCODONE-ACETAMINOPHEN 90660617109 Active Rhett Luther DO Active TERESE CONTOUR TEST STRP monitor blood sugars 3x/day GLUCOSE BLOOD 56563951311 No Longer Active Alina Castaneda MD PhD Active EQL TRUETEST TEST STRP Test blood sugar TID GLUCOSE BLOOD 87507536145 No Longer Active Alina Castaneda MD PhD Active FLUTICASONE PROPIONATE 50 MCG/ACT SUSP 2 sprays each nostril qDay x 30 days FLUTICASONE PROPIONATE 80616729154 No Longer Active Alnia Castaneda MD PhD Active IBUPROFEN 200 MG TABS 1 Q 6 hr. PRN IBUPROFEN 37681390050 No Longer Active Alina Castaneda MD PhD Active NIACIN ER 500 MG CR-TABS 4 qHS (for triglycerides) NIACIN 83411207696 No Longer Active Alina Castaneda MD PhD Active TRUETEST TEST STRP check sugars 4x/day GLUCOSE BLOOD 83899724987 Active Marvel MARROQUIN Active ALFUZOSIN HCL ER 10 MG [id number] 1 tablet daily ALFUZOSIN HCL 51358278140 Active Vanessa Hickey MD Active CLONAZEPAM 1 MG TABS 1 pill by mouth three times daily CLONAZEPAM 54900497571 Active Alina Castaneda MD PhD Active LOVAZA 1 GM CAPS 4 daily (for triglycerides) [id number] ETHYL ESTERS 08011179524 Active Alina Castaneda MD PhD Active SAPHRIS 5 MG SUBL by mouth twice a day ASENAPINE MALEATE 53950331074 No Longer Active Marvel MARROQUIN Active ACETAMINOPHEN 500 MG TABS 2 Q 6 hr. PRN ACETAMINOPHEN 80269767831 No Longer Active Marvel MARROQUIN Active VERAPAMIL HCL ER 120 MG [id number] 1 pill by mouth twice a day, for headache prevention/control VERAPAMIL HCL 11926455061 Active Alina Castaneda MD PhD Active ORPHENADRINE CITRATE ER 100 MG [id number] 1 every 12 hr. as needed ORPHENADRINE CITRATE 70478361930 No Longer Active Alina Castaneda MD PhD Active NIACIN CR 500 MG CR-TABS 2 qHS NIACIN 24530847646 No Longer Active Alina Castaneda MD PhD Active AMOXICILLIN 500 MG CAPS 2 po BID x 10 days AMOXICILLIN 79784762387 No Longer Active Alina Castaneda MD PhD Active HYDROCODONE-ACETAMINOPHEN 7.5-325 MG TABS 1 four times a day as needed for pain HYDROCODONE-ACETAMINOPHEN 70550437334 No Longer Active Alina Castaneda MD PhD Active METFORMIN HCL ER 500 MG [id number]-KXN Take three tablets by mouth everyday METFORMIN HCL 58012503353 Active Alina Castaneda MD PhD Active DOXEPIN HCL 10 MG CAPS Take 1 tablet by mouth daily DOXEPIN HCL 60411894042 No Longer Active Salina Emely A Active NAVANE 10 MG CAPS 1/2 tablet twice a day THIOTHIXENE No Longer Active Salina Ervinford A Active CYCLOBENZAPRINE HCL 10 MG TABS 1/2 tablet by mouth every 8 hours as needed for muscle spasms CYCLOBENZAPRINE HCL 44380486679 No Longer Active Alina Castaneda MD PhD Active BACTROBAN 2 % CREAM apply to ear and nose twice daily MUPIROCIN CALCIUM 54785539759 No Longer Active Alina Castaneda MD PhD Active HYDROCODONE-ACETAMINOPHEN 5-325 MG TABS take one tablet by mouth every four hours as needed for pain HYDROCODONE-ACETAMINOPHEN 79662598135 No Longer Active Alina Castaneda MD PhD Active ZOLPIDEM TARTRATE 10 MG TABS take at bedtime ZOLPIDEM TARTRATE 46674569140 Active Alina Castaneda MD PhD Active ZYPREXA 5 MG TABS take one tablet by mouth every evening OLANZAPINE 64730245380 No Longer Active Alina Castaneda MD PhD Active ALBUTEROL SULFATE 0.083 % NEBU SOLN one vial per nebulizer TID and PRN cough/ soa ALBUTEROL SULFATE 34220569868 No Longer Active Alina Castaneda MD PhD Active GUAIFENESIN 600 MG [id number]-RSJ 1 tablet by mouth twice daily if needed for cough GUAIFENESIN 58596822568 No Longer Active Marvel MARROQUIN Active AZITHROMYCIN 500 MG SOLR 1 po q day AZITHROMYCIN 35186902829 No Longer Active Alina Castaneda MD PhD Active METOPROLOL SUCCINATE 100 MG [id number]-KZY 1 by mouth daily for blood pressure METOPROLOL SUCCINATE 09452236238 Active Alina Castaneda MD PhD Active PROMETHAZINE-CODEINE 6.25-10 MG/5ML SYRP 1 tsp po q 6 hours prn cough PROMETHAZINE-CODEINE 54012821251 No Longer Active Alina Castaneda MD PhD Active CEFDINIR 300 MG CAPS by mouth twice a day CEFDINIR 57128551617 No Longer Active Alina Castaneda MD PhD Active METFORMIN HCL 500 MG KU69H-MDI Take 3 tablets by mouth everyday METFORMIN HCL 22892857599 No Longer Active Alina Castaneda MD PhD Active LEVEMIR 100 UNIT/ML SOLN 90 units SQ qHS INSULIN DETEMIR 05332304894 No Longer Active Marvel MARROQUIN Active TOPROL XL 100 MG [id number] 1 @ HS METOPROLOL SUCCINATE 52939365652 No Longer Active Marvel MARROQUIN Active ALLOPURINOL 300 MG TABS Take one by mouth daily ALLOPURINOL 25950918906 Active Alina Castaneda MD PhD Active ZYPREXA 10 MG TABS Take one by mouth daily OLANZAPINE 22412807383 No Longer Active Alina Castaneda MD PhD Active NOVOLOG 100 UNIT/ML SOLN 40 units with every meal INSULIN ASPART 71800880902 No Longer Active Alina Castaneda MD PhD Active VERAPAMIL HCL CR 120 MG TAB CR 1 qPM VERAPAMIL HCL 41415836949 No Longer Active Salina Han [facility] Active ZYPREXA 15 MG TABS Take 1 tablet by mouth daily OLANZAPINE 89473288942 No Longer Active Marvel MARROQUIN Active LISINOPRIL 20 MG TABS 1 BID LISINOPRIL 63419502297 Active Alina Castaneda MD PhD Active ALBUTEROL SULFATE (2.5 MG/3ML) 0.083% NEBU 1 neb tid and prn cough ALBUTEROL SULFATE 12027863320 No Longer Active Alina Castaneda MD PhD Active FLUVOXAMINE MALEATE 100 MG TABS Take one (1) tablet by mouth am, 1/2 at noon, 1 pm FLUVOXAMINE MALEATE 83677809755 Active Alina Castaneda MD PhD Active TRAVATAN Z 0.004 % SOLN 1 gtt each eye daily TRAVOPROST 01570527610 Active CRYSTAL Suarez Active LANTUS 100 UNIT/ML SOLN 60 units sq q hs INSULIN GLARGINE 54720748386 No Longer Active CRYSTAL Suarez Active ALBUTEROL SULFATE (2.5 MG/3ML) 0.083% NEBU 1 neb tid and prn cough ALBUTEROL SULFATE (2.5 MG/3ML) 0.083% NEBU 121143 ALBUTEROL SULFATE Inactive ZYPREXA 15 MG TABS Take 1 tablet by mouth daily ZYPREXA 15 MG TABS 658463 OLANZAPINE Inactive VERAPAMIL HCL CR 120 MG TAB CR 1 qPM VERAPAMIL HCL CR 120 MG TAB CR VERAPAMIL HCL Inactive ZYPREXA 10 MG TABS Take one by mouth daily ZYPREXA 10 MG TABS 740851 OLANZAPINE Inactive TOPROL XL 100 MG [id number] 1 @ HS TOPROL XL 100 MG WR02E-IIP METOPROLOL SUCCINATE Inactive LEVEMIR 100 UNIT/ML SOLN 90 units SQ qHS LEVEMIR 100 UNIT/ML SOLN INSULIN DETEMIR Inactive PROMETHAZINE-CODEINE 6.25-10 MG/5ML SYRP 1 tsp po q 6 hours prn cough PROMETHAZINE-CODEINE 6.25-10 MG/5ML SYRP 908325 PROMETHAZINE- CODEINE Inactive GUAIFENESIN 600 MG [id number]-AJB 1 tablet by mouth twice daily if needed for cough GUAIFENESIN 600 MG [id number]-VGO GUAIFENESIN Inactive ALBUTEROL SULFATE 0.083 % NEBU SOLN one vial per nebulizer TID and PRN cough/ soa ALBUTEROL SULFATE 0.083 % NEBU SOLN 231631 ALBUTEROL SULFATE Inactive ZYPREXA 5 MG TABS take one tablet by mouth every evening ZYPREXA 5 MG TABS 264413 OLANZAPINE Inactive HYDROCODONE-ACETAMINOPHEN 5-325 MG TABS take one tablet by mouth every four hours as needed for pain HYDROCODONE-ACETAMINOPHEN 5-325 MG TABS 182486 HYDROCODONE-ACETAMINOPHEN Inactive BACTROBAN 2 % CREAM apply to ear and nose twice daily BACTROBAN 2 % CREAM 868234 MUPIROCIN CALCIUM Inactive CYCLOBENZAPRINE HCL 10 MG TABS 1/2 tablet by mouth every 8 hours as needed for muscle spasms CYCLOBENZAPRINE HCL 10 MG TABS 137271 CYCLOBENZAPRINE HCL Inactive NAVANE 10 MG CAPS 1/2 tablet twice a day NAVANE 10 MG CAPS THIOTHIXENE Inactive DOXEPIN HCL 10 MG CAPS Take 1 tablet by mouth daily DOXEPIN HCL 10 MG CAPS 6025398 DOXEPIN HCL Inactive HYDROCODONE-ACETAMINOPHEN 7.5-325 MG TABS 1 four times a day as needed for pain HYDROCODONE-ACETAMINOPHEN 7.5-325 MG TABS 894233 HYDROCODONE-ACETAMINOPHEN Inactive NIACIN CR 500 MG CR-TABS 2 qHS NIACIN CR 500 MG CR- TABS NIACIN Inactive ORPHENADRINE CITRATE ER 100 MG [id number] 1 every 12 hr. as needed ORPHENADRINE CITRATE ER 100 MG [id number]-NSP ORPHENADRINE CITRATE Inactive ACETAMINOPHEN 500 MG TABS 2 Q 6 hr. PRN ACETAMINOPHEN 500 MG TABS 559480 ACETAMINOPHEN Inactive SAPHRIS 5 MG SUBL by mouth twice a day SAPHRIS 5 MG SUBL ASENAPINE MALEATE Inactive NIACIN ER 500 MG CR-TABS 4 qHS (for triglycerides) NIACIN ER 500 MG CR-TABS NIACIN Inactive IBUPROFEN 200 MG TABS 1 Q 6 hr. PRN IBUPROFEN 200 MG TABS 834223 IBUPROFEN Inactive FLUTICASONE PROPIONATE 50 MCG/ACT SUSP 2 sprays each nostril qDay x 30 days FLUTICASONE PROPIONATE 50 MCG/ACT SUSP 453118 FLUTICASONE PROPIONATE Inactive EQL TRUETEST TEST STRP Test blood sugar TID EQL TRUETEST TEST STRP GLUCOSE BLOOD Inactive TERESE CONTOUR TEST STRP monitor blood sugars 3x/day TERESE CONTOUR TEST STRP GLUCOSE BLOOD Inactive DETROL LA 4 MG [id number]-YUF Take 1 tablet by mouth daily DETROL LA 4 MG [id number]-LAL TOLTERODINE TARTRATE Inactive ZYPREXA 7.5 MG TABS 1 at HS ZYPREXA 7.5 MG TABS 446307 OLANZAPINE Inactive THIOTHIXENE 5 MG CAPS by mouth twice a day THIOTHIXENE 5 MG CAPS 331429 THIOTHIXENE Inactive UROXATRAL 10 MG [id number]-EOJ Take 1 tablet by mouth daily UROXATRAL 10 MG SV19J-TAJ ALFUZOSIN HCL Inactive CEFDINIR 300 MG CAPS by mouth twice a day CEFDINIR 300 MG CAPS 293352 CEFDINIR Inactive AZITHROMYCIN 500 MG SOLR 1 po q day AZITHROMYCIN 500 MG SOLR 078584 AZITHROMYCIN Inactive AMOXICILLIN 500 MG CAPS 2 po BID x 10 days AMOXICILLIN 500 MG CAPS 922468 AMOXICILLIN Inactive Immunizations Vaccine Administration Date Value [...] Fluvirin, Fluarix, Agriflu(>=18 yo)) Fluzone (>3 yrs.) [[id number]] Influenza, seasonal, injectable pneumococcal immunization administered Pneumovax 23 [CVX33] pneumococcal polysaccharide vaccine, 23 valent Vital Signs Date Name Value Unit Range Description blood pressure, diastolic, second observation 70 mm[Hg] BP garcia blood pressure, diastolic, third observation 70 mm[Hg] BP garcia blood pressure, diastolic, fourth observation 75 mm[Hg] BP garcia blood pressure, diastolic, sitting 70 mm[Hg] BP garcia blood pressure, diastolic, standing 73 mm[Hg] BP garcia blood pressure, diastolic, supine, left arm 70 mm[Hg] BP garcia blood pressure, diastolic 68 mm[Hg] BP garcia blood pressure, systolic, second observation 100 mm[Hg] BP sys blood pressure, systolic, third observation 90 mm[Hg] BP sys blood pressure, systolic, fourth observation 140 mm[Hg] BP sys blood pressure, systolic, sitting 90 mm[Hg] BP sys blood pressure, systolic, standing 140 mm[Hg] BP sys blood pressure, systolic, supine, left arm 100 mm[Hg] BP sys blood pressure, systolic 140 mm[Hg] BP sys pulse rate E&M 66 /min Heart rate pulse rate #2 62 Heart rate pulse rate #3 73 Heart rate pulse rate #4 76 /min Heart rate pulse rate, sitting 73 /min Heart rate pulse rate, standing 76 /min Heart rate pulse rate, supine, left 62 /min Heart rate temperature E&M 98.3 [degF] Body temperature weight E&M 244 [lb_av] Weight Measured blood pressure, diastolic 72 [...] temperature weight E&M 238.38 [lb_av] Weight Measured Diagnostic Results Date Name Value Unit Range Description Lab Report: Basic Metabolic Panel, HGBA1C - Chemistry sodium, serum 130 mmol/L 132-234 9679/06/09 potassium, serum 4.0 mmol/L 3.5-5.2 chloride, serum [...] 6.0 mg/dL 2.6-7.2 sodium, serum 130 mmol/L 897-044 5465/05/01 potassium, serum 5.2 mmol/L 3.5-5.2 chloride, serum [...] 0.40 mg/dL 0.00-1.00 cholesterol, serum 151 mg/dL 783-001 6543/05/01 triglyceride, serum, fasting 356 mg/dL 30-200 HDL [...] Panel - Chemistry sodium, serum 127 mmol/L 388-854 0477/10/27 potassium, serum 4.1 mmol/L 3.5-5.2 chloride, serum [...] HGBA1C - Chemistry sodium, serum 126 mmol/L 676-833 4193/02/26 potassium, serum 4.8 mmol/L 3.5-5.2 chloride, serum [...] mg/dL Encounters Code Encounter Date Provider Facility CPT-84516 Level 3 Est. Patient 08:54:46 CDT Alina Castaneda MD PhD [facility] CPT-13454 Level 3 Est. Patient 09:32:11 CDT Marvel MARROQUIN [facility] CPT-01931 Level 3 Est. Patient 12:02:49 CDT Alina Castaneda MD [facility]-19827 Level 3 Est. Patient 19:17:33 CDT Alina Castaneda MD [facility]-46876 Level 3 Est. Patient 13:19:10 [facility]-39066 Level 3 Est. Patient 08:20:05 CDT Alina Castaneda MD [facility]-31243 Level 3 Est. Patient 15:17:18 CDT Alina Castaneda MD [facility]-25288 Level 3 Est. Patient 14:25:36 IT SYSTEMS ANALYST CONSULTANT [facility] Level [facility] Est. Patient 10:09:15 IT SYSTEMS ANALYST CONSULTANT [facility] Level 3 Est. Patient 21:28:43 CDT Alina Castaneda MD [facility]-08900 Level 3 Est. Patient 15:20:11 CDT [facility] Level 4 Est. Patient 19:08:12 CDT Alina Castaneda MD [facility]-65236 Level 3 Est. Patient 15:06:39 [facility]15 Level 4 Est. Patient 17:48:15 CDT Alina Castaneda MD [facility]-89548 Level 3 Est. Patient 14:53:49 CDT Alina Castaneda MD [facility]-08777 Level 3 Est. Patient 09:35:16 CDT Alina Castaneda MD [facility]90631 Level 3 Est. Patient 12:23:22 CDT Alina Castaneda MD [facility]-06647 Level 3 Est. Patient 16:19:15 CDT Alina Castaneda MD [facility]-77831 Level 3 Est. Patient 21:39:56 IT SYSTEMS ANALYST CONSULTANT Alina Castaneda MD [facility]-45010 Level 4 Est. Patient 14:12:56 IT SYSTEMS ANALYST CONSULTANT Alina Castaneda MD [facility]-10665 Level 2 Est. Patient 15:34:57 IT SYSTEMS ANALYST CONSULTANT Alina Castaneda MD [facility]-79120 Level 3 Est. Patient 12:17:04 IT SYSTEMS ANALYST CONSULTANT Alina Castaneda MD [facility]-82539 Level 3 Est. Patient 09:18:18 IT SYSTEMS ANALYST CONSULTANT Marvel Charles [facility]-24020 Level 2 Est. Patient 21:50:24 CDT Alina Castaneda MD [facility]-30379 Level 3 Est. Patient 09:17:28 CDT Marvel Charles [facility] CPT-82514 Level 4 Est. Patient 18:54:02 CDT Alina Castaneda MD [facility]-03993 Level 3 Est. Patient 10:47:10 CDT Alina Castaneda MD [facility]-46696 Level 3 Est. Patient 09:22:20 CDT Marvel Charles [facility]-57776 Level 3 Est. Patient 16:39:43 CDT Marvel Charles [facility]-71757 Level 3 Est. Patient 16:05:16 CDT Alina Castaneda MD [facility] CPT-30127 Level 3 Est. Patient 00:29:15 CDT Alina Castaneda MD [facility] CPT-73904 Level 3 Est. Patient 10:49:22 IT SYSTEMS ANALYST CONSULTANT Marvel Charles [facility] CPT-41668 Level 3 Est. Patient 21:30:19 IT SYSTEMS ANALYST CONSULTANT Alina Castaneda MD [facility] CPT-29775 Level 4 Est. Patient 17:04:11 IT SYSTEMS ANALYST CONSULTANT Marvel Charles [facility] CPT-72632 Level 3 Est. Patient 15:34:11 IT SYSTEMS ANALYST CONSULTANT Brook[facility] CPT-15106 Level 2 Est. Patient 12:51:58 IT SYSTEMS ANALYST CONSULTANT Alina Castaneda MD [facility] CPT-60420 Level 3 Est. Patient 13:20:01 IT SYSTEMS ANALYST CONSULTANT Alina Castaneda MD [facility] CPT-48297 Level 3 Est. Patient 09:23:35 CDT Alina Castaneda MD [facility] Procedures Code Procedure Name Date Entry Date Standard Description CPT-G0008 Administration of Influenza Virus Vaccine 13:05:26 CDT CPT-78925 Fluzone Quadrivalent Intramuscular Suspension 0.5 ML 13: 05:26 CDT CPT-21835 Administration single or combination vaccine inc oral 11 :49:51 CDT CPT-67466 Pneumovax 11:49:51 CDT CPT-38647 Ribs unilateral 2V 12:37:22 IT SYSTEMS ANALYST CONSULTANT CPT-43854 Chest 2V Frontal and Lat 17:15:26 CDT CPT-43284 Abx/Therapy Injection 18:54:02 CDT CPT-J0696 Rocephin 1000 mg (Ceftriaxone) 16:00:32 CDT CPT-51855 Chest 2V Frontal and Lat 15:26:45 CDT CPT-00793 Chest 2V Frontal and Lat 10:23:27 CDT CPT-75389 Venipuncture Draw Fee 10:11:00 CDT CPT-01264 Administration single or combination vaccine inc oral 11 :56:38 CDT CPT-62173 Influenza split virus > age 3 11:56:38 CDT CPT-41076 Venipuncture Draw Fee 08:49:54 IT SYSTEMS ANALYST CONSULTANT CPT-98842 EKG Trac and Interp 17:54:19 IT SYSTEMS ANALYST CONSULTANT
--- OUTSIDE RECORDS SUMMARY | 2018-07-02 19:46 | XMS REPORT | Clinical Summary ---
Author Author Admin, TERELL Organization [facility] Address Unknown Phone Unavailable Allergies, [...] skin and subcutaneous tissue HEADACHE 784.0 Active Alian Castaneda MD PhD Headache SINUSITIS, ACUTE 461.9 Resolved Alina Castaneda MD PhD Acute sinusitis, unspecified DIABETIC HYPOGLYCEMIA, TYPE II 250.80 Resolved Maljohn Mackenzieglari [employer] Diabetes mellitus with other specified manifestations, type II or unspecified type, not stated as uncontrolled SUBDURAL HEMATOMA 432.1 Resolved Alina Castaneda MD PhD Subdural hemorrhage Diabetes mellitus, type II, uncontrolled 250.02 Active Maliheh Ziglari [employer] Diabetes mellitus without mention of complication, type II or unspecified type, uncontrolled 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 Active Alina Castaneda MD PhD Recurrent isolated sleep paralysis SPECIAL SCREENING FOR MALIGNANT NEOPLASM OF PROSTATE V76.44 Resolved Alina Castaneda MD PhD Screening for malignant neoplasms of prostate Hypoglycemia 251.2 Active Marvel MARROQUIN Hypoglycemia, unspecified Diabetes mellitus, type II 250.00 Active Maliheh Ziglari [employer] Diabetes mellitus without mention of complication, type II or unspecified type, not stated as uncontrolled DIABETES, TYPE 2 ICD-250.00 Inactive Alina Castaneda [...] TYPE II, UNCONTROLLED ICD-250.02 Inactive Marvel MARROQUIN FH STROKE ICD-V17.1 Inactive Marvel MARROQUIN SKIN LESION ICD-709.9 Inactive Alina Castaneda MD PhD PNEUMONIA, ORGANISM UNSPECIFIED ICD-486 Inactive Alina Castaneda MD PhD DIABETIC HYPOGLYCEMIA, TYPE II ICD-250.80 Inactive Marvel 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 Inactive Alina Castaneda MD PhD SPECIAL SCREENING FOR MALIGNANT NEOPLASM OF PROSTATE ICD-V76.44 Inactive Alina Castaneda MD PhD RIB PAIN, RIGHT SIDED ICD-786.50 Inactive Alina Castaneda MD PhD SINUSITIS, ACUTE ICD-461.9 Inactive Alina Castaneda MD PhD Medication List Medication Instructions Start Date Stop Date Generic Name NDC Status Provider Patient Instruction MORPHINE SULFATE 30 MG TABS 1 pill by mouth nightly, for pain MORPHINE SULFATE 05293321684 Active Alina Castaneda MD PhD Active LATUDA 80 MG TABS 1 tab by mouth every evening LURASIDONE HCL 58388591070 Active Alina Castaneda MD PhD Active UROXATRAL 10 MG [id number] Take 1 tablet by mouth daily ALFUZOSIN HCL 75586152205 No Longer Active Alina Castaneda MD PhD Active THIOTHIXENE 5 MG CAPS by mouth twice a day THIOTHIXENE 29759028961 No Longer Active Alina Castaneda MD PhD Active ZYPREXA 7.5 MG TABS 1 at HS OLANZAPINE 74581723592 No Longer Active Alina Castaneda MD PhD Active HUMALOG 100 UNIT/ML SOLN Take 20 units with breakfast, 10u with lunch and suppetr. INSULIN LISPRO (HUMAN) 29309490199 Active Maliheh Ziglari [employer] Active LEVEMIR 100 UNIT/ML SOLN Take 70 u at 7-8pm INSULIN DETEMIR 56549164754 Active Maliheh Ziglari [employer] Active BD INSULIN SYRINGE 28G X 1/2" 1 ML MISC 1 four times per day INSULIN SYRINGE-NEEDLE U-100 07583251549 Active Maliheh Ziglari [employer] Active CYCLOBENZAPRINE HCL 10 MG TABS 1 tablet by mouth three times daily, scheduled CYCLOBENZAPRINE HCL 87900788911 Active Alina Castaneda MD PhD Active TOLTERODINE TARTRATE 2 MG TABS 1 pill twice daily, for bladder TOLTERODINE TARTRATE 44224062562 Active Alina Castaneda MD PhD Active DETROL LA 4 MG [id number]-QMQ Take 1 tablet by mouth daily TOLTERODINE TARTRATE 92957784326 No Longer Active Alina Castaneda MD PhD Active HYDROCODONE-ACETAMINOPHEN 5-325 MG TABS 2 tabs by mouth three times daily as needed for pain HYDROCODONE-ACETAMINOPHEN 08743645883 Active Alina Castaneda MD PhD Active TERESE CONTOUR TEST STRP monitor blood sugars 3x/day GLUCOSE BLOOD 98549071164 No Longer Active Alina Castaneda MD PhD Active EQL TRUETEST TEST STRP Test blood sugar TID GLUCOSE BLOOD 97673160696 No Longer Active Alina Castaneda MD PhD Active FLUTICASONE PROPIONATE 50 MCG/ACT SUSP 2 sprays each nostril qDay x 30 days FLUTICASONE PROPIONATE 04958716013 No Longer Active Alina Castaneda MD PhD Active IBUPROFEN 200 MG TABS 1 Q 6 hr. PRN IBUPROFEN 68632992019 No Longer Active Alina Castaneda MD PhD Active NIACIN ER 500 MG CR-TABS 4 qHS (for triglycerides) NIACIN 21082153736 No Longer Active Alina Castaneda MD PhD Active TRUETEST TEST STRP check sugars 4x/day GLUCOSE BLOOD 13878833785 Active Alina Castaneda MD PhD Active ALFUZOSIN HCL ER 10 MG [id number] 1 tablet daily ALFUZOSIN HCL 98084552796 Active Vanessa Hickey MD Active CLONAZEPAM 1 MG TABS 1 pill by mouth three times daily CLONAZEPAM 38093453030 Active Alina Castaneda MD PhD Active LOVAZA 1 GM CAPS 4 daily (for triglycerides) [id number] ETHYL ESTERS 57421162411 Active Alina Castaneda MD PhD Active SAPHRIS 5 MG SUBL by mouth twice a day ASENAPINE MALEATE 86387003624 No Longer Active Maljohn Mackenzieglari [employer]ER Active ACETAMINOPHEN 500 MG TABS 2 Q 6 hr. PRN ACETAMINOPHEN 89371715360 No Longer Active Maliheh Ziglari [employer] Active VERAPAMIL HCL ER 120 MG NW71P-BWR 1 pill by mouth twice a day, for headache prevention/control VERAPAMIL HCL 19138615671 Active Alina Castaneda MD PhD Active ORPHENADRINE CITRATE ER 100 MG UR63R-MPK 1 every 12 hr. as needed ORPHENADRINE CITRATE 62432556248 No Longer Active Alina Castaneda MD PhD Active NIACIN CR 500 MG CR-TABS 2 qHS NIACIN 71974096324 No Longer Active Alina Castaneda MD PhD Active AMOXICILLIN 500 MG CAPS 2 po BID x 10 days AMOXICILLIN 15308688532 No Longer Active Alina Castaneda MD PhD Active HYDROCODONE-ACETAMINOPHEN 7.5-325 MG TABS 1 four times a day as needed for pain HYDROCODONE-ACETAMINOPHEN 67503210202 No Longer Active Alina Castaneda MD PhD Active METFORMIN HCL ER 500 MG WQ99B-EDG Take three tablets by mouth everyday METFORMIN HCL 53879279268 Active Alina Castaneda MD PhD Active DOXEPIN HCL 10 MG CAPS Take 1 tablet by mouth daily DOXEPIN HCL 19342888279 No Longer Active Salina Han A Active NAVANE 10 MG CAPS 1/2 tablet twice a day THIOTHIXENE No Longer Active Salina Han [facility] Active CYCLOBENZAPRINE HCL 10 MG TABS 1/2 tablet by mouth every 8 hours as needed for muscle spasms CYCLOBENZAPRINE HCL 78669014368 No Longer Active Alina Castaneda MD PhD Active BACTROBAN 2 % CREAM apply to ear and nose twice daily MUPIROCIN CALCIUM 15450263561 No Longer Active Alina Castaneda MD PhD Active HYDROCODONE-ACETAMINOPHEN 5-325 MG TABS take one tablet by mouth every four hours as needed for pain HYDROCODONE-ACETAMINOPHEN 81099349328 No Longer Active Alina Castaneda MD PhD Active ZOLPIDEM TARTRATE 10 MG TABS take at bedtime ZOLPIDEM TARTRATE 32246589262 Active Alina Castaneda MD PhD Active ZYPREXA 5 MG TABS take one tablet by mouth every evening OLANZAPINE 42766470064 No Longer Active Alina Castaneda MD PhD Active ALBUTEROL SULFATE 0.083 % NEBU SOLN one vial per nebulizer TID and PRN cough/ soa ALBUTEROL SULFATE 01803774951 No Longer Active Alina Castaneda MD PhD Active GUAIFENESIN 600 MG [id number]-NCD 1 tablet by mouth twice daily if needed for cough GUAIFENESIN 47415137356 No Longer Active Marvel MARROQUIN Active AZITHROMYCIN 500 MG SOLR 1 po q day AZITHROMYCIN 83676908312 No Longer Active Alina Castaneda MD PhD Active METOPROLOL SUCCINATE 100 MG CP67P-FQV 1 by mouth daily for blood pressure METOPROLOL SUCCINATE 97219748164 Active Alina Castaneda MD PhD Active PROMETHAZINE-CODEINE 6.25-10 MG/5ML SYRP 1 tsp po q 6 hours prn cough PROMETHAZINE-CODEINE 55370807853 No Longer Active Alina Castaneda MD PhD Active CEFDINIR 300 MG CAPS by mouth twice a day CEFDINIR 58281921422 No Longer Active Alina Castaneda MD PhD Active METFORMIN HCL 500 MG CE32X-STV Take 3 tablets by mouth everyday METFORMIN HCL 89024626020 No Longer Active Alina Castaneda MD PhD Active LEVEMIR 100 UNIT/ML SOLN 90 units SQ qHS INSULIN DETEMIR 90935196650 No Longer Active Marvel MARROQUIN Active TOPROL XL 100 MG WU53S-CLV 1 @ HS METOPROLOL SUCCINATE 07826604775 No Longer Active Marvel MARROQUIN Active ALLOPURINOL 300 MG TABS Take one by mouth daily ALLOPURINOL 16870390798 Active Alina Castaneda MD PhD Active ZYPREXA 10 MG TABS Take one by mouth daily OLANZAPINE 08706931744 No Longer Active Alina Castaneda MD PhD Active NOVOLOG 100 UNIT/ML SOLN 40 units with every meal INSULIN ASPART 47019648510 No Longer Active Alina Castaneda MD PhD Active VERAPAMIL HCL CR 120 MG TAB CR 1 qPM VERAPAMIL HCL 99332458976 No Longer Active Salina Han [facility] Active ZYPREXA 15 MG TABS Take 1 tablet by mouth daily OLANZAPINE 73326070933 No Longer Active Marvel MARROQUIN Active LISINOPRIL 20 MG TABS 1 BID LISINOPRIL 77593596611 Active Alina Castaneda MD PhD Active ALBUTEROL SULFATE (2.5 MG/3ML) 0.083% NEBU 1 neb tid and prn cough ALBUTEROL SULFATE 61742690613 No Longer Active Alina Castaneda MD PhD Active FLUVOXAMINE MALEATE 100 MG TABS Take one (1) tablet by mouth am, 05/25 at noon, 1 pm FLUVOXAMINE MALEATE 69016824280 Active Alina Castaneda MD PhD Active TRAVATAN Z 0.004 % SOLN 1 gtt each eye daily TRAVOPROST 84134368939 Active CRYSTAL Suarez Active LANTUS 100 UNIT/ML SOLN 60 units sq q hs INSULIN GLARGINE 12044523522 No Longer Active CRYSTAL Suarez Active ALBUTEROL SULFATE (2.5 MG/3ML) 0.083% NEBU 1 neb tid and prn cough ALBUTEROL SULFATE (2.5 MG/3ML) 0.083% NEBU 999260 ALBUTEROL SULFATE Inactive ZYPREXA 15 MG TABS Take 1 tablet by mouth daily ZYPREXA 15 MG TABS 685710 OLANZAPINE Inactive VERAPAMIL HCL CR 120 MG TAB CR 1 qPM VERAPAMIL HCL CR 120 MG TAB CR VERAPAMIL HCL Inactive ZYPREXA 10 MG TABS Take one by mouth daily ZYPREXA 10 MG TABS 122979 OLANZAPINE Inactive TOPROL XL 100 MG [id number] 1 @ HS TOPROL XL 100 MG GW67T-ZOM METOPROLOL SUCCINATE Inactive LEVEMIR 100 UNIT/ML SOLN 90 units SQ qHS LEVEMIR 100 UNIT/ML SOLN INSULIN DETEMIR Inactive PROMETHAZINE-CODEINE 6.25-10 MG/5ML SYRP 1 tsp po q 6 hours prn cough PROMETHAZINE-CODEINE 6.25-10 MG/5ML SYRP 018871 PROMETHAZINE- CODEINE Inactive GUAIFENESIN 600 MG VN12D-JZJ 1 tablet by mouth twice daily if needed for cough GUAIFENESIN 600 MG XH62Q-SSR GUAIFENESIN Inactive ALBUTEROL SULFATE 0.083 % NEBU SOLN one vial per nebulizer TID and PRN cough/ soa ALBUTEROL SULFATE 0.083 % [facility] 671453 ALBUTEROL SULFATE Inactive ZYPREXA 5 MG TABS take one tablet by mouth every evening ZYPREXA 5 MG TABS 500526 OLANZAPINE Inactive HYDROCODONE-ACETAMINOPHEN 5-325 MG TABS take one tablet by mouth every four hours as needed for pain HYDROCODONE-ACETAMINOPHEN 5-325 MG TABS 863736 HYDROCODONE-ACETAMINOPHEN Inactive BACTROBAN 2 % CREAM apply to ear and nose twice daily BACTROBAN 2 % CREAM 618117 MUPIROCIN CALCIUM Inactive CYCLOBENZAPRINE HCL 10 MG TABS 1/2 tablet by mouth every 8 hours as needed for muscle spasms CYCLOBENZAPRINE HCL 10 MG TABS 240567 CYCLOBENZAPRINE HCL Inactive NAVANE 10 MG CAPS 1/2 tablet twice a day NAVANE 10 MG CAPS THIOTHIXENE Inactive DOXEPIN HCL 10 MG CAPS Take 1 tablet by mouth daily DOXEPIN HCL 10 MG CAPS 4294844 DOXEPIN HCL Inactive HYDROCODONE-ACETAMINOPHEN 7.5-325 MG TABS 1 four times a day as needed for pain HYDROCODONE-ACETAMINOPHEN 7.5-325 MG TABS 873251 HYDROCODONE-ACETAMINOPHEN Inactive NIACIN CR 500 MG CR-TABS 2 qHS NIACIN CR 500 MG CR- TABS NIACIN Inactive ORPHENADRINE CITRATE ER 100 MG [id number] 1 every 12 hr. as needed ORPHENADRINE CITRATE ER 100 MG UK32P-ZYF ORPHENADRINE CITRATE Inactive ACETAMINOPHEN 500 MG TABS 2 Q 6 hr. PRN ACETAMINOPHEN 500 MG TABS 558456 ACETAMINOPHEN Inactive SAPHRIS 5 MG SUBL by mouth twice a day SAPHRIS 5 MG SUBL ASENAPINE MALEATE Inactive NIACIN ER 500 MG CR-TABS 4 qHS (for triglycerides) NIACIN ER 500 MG CR-TABS NIACIN Inactive IBUPROFEN 200 MG TABS 1 Q 6 hr. PRN IBUPROFEN 200 MG TABS 289570 IBUPROFEN Inactive FLUTICASONE PROPIONATE 50 MCG/ACT SUSP 2 sprays each nostril qDay x 30 days FLUTICASONE PROPIONATE 50 MCG/ACT SUSP 722140 FLUTICASONE PROPIONATE Inactive EQL TRUETEST TEST STRP Test blood sugar TID EQL TRUETEST TEST STRP GLUCOSE BLOOD Inactive TERESE CONTOUR TEST STRP monitor blood sugars 3x/day TERESE CONTOUR TEST STRP GLUCOSE BLOOD Inactive DETROL LA 4 MG [id number] Take 1 tablet by mouth daily DETROL LA 4 MG MV54D-UDB TOLTERODINE TARTRATE Inactive ZYPREXA 7.5 MG TABS 1 at HS ZYPREXA 7.5 MG TABS 062426 OLANZAPINE Inactive THIOTHIXENE 5 MG CAPS by mouth twice a day THIOTHIXENE 5 MG CAPS 262687 THIOTHIXENE Inactive UROXATRAL 10 MG NY90Q-QUT Take 1 tablet by mouth daily UROXATRAL 10 MG RI93M-VKD ALFUZOSIN HCL Inactive CEFDINIR 300 MG CAPS by mouth twice a day CEFDINIR 300 MG CAPS 175309 CEFDINIR Inactive AZITHROMYCIN 500 MG SOLR 1 po q day AZITHROMYCIN 500 MG SOLR 790816 AZITHROMYCIN Inactive AMOXICILLIN 500 MG CAPS 2 po BID x 10 days AMOXICILLIN 500 MG CAPS 157722 AMOXICILLIN Inactive Immunizations Vaccine Administration Date Value [...] Fluvirin, Fluarix, Agriflu(>=18 yo)) Fluzone (>3 yrs.) [[id number]] Influenza, seasonal, injectable pneumococcal immunization administered Pneumovax [...] HGBA1C - Chemistry sodium, serum 130 mmol/L 562-959 8899/06/09 potassium, serum 4.0 mmol/L 3.5-5.2 chloride, serum [...] 6.0 mg/dL 2.6-7.2 sodium, serum 130 mmol/L 479-185 6326/05/01 potassium, serum 5.2 mmol/L 3.5-5.2 chloride, serum [...] 0.40 mg/dL 0.00-1.00 cholesterol, serum 151 mg/dL 506-631 0094/05/01 triglyceride, serum, fasting 356 mg/dL 30-200 HDL [...] HGBA1C - Chemistry sodium, serum 126 mmol/L 870-239 8654/02/26 potassium, serum 4.8 mmol/L 3.5-5.2 chloride, serum [...] mg/dL Encounters Code Encounter Date Provider Facility CPT-74609 Level 3 Est. Patient 09:32:11 CDT Maliheh Ziglari [facility]-38699 Level 3 Est. Patient 12:02:49 CDT Alina Castaneda MD [facility]-17067 Level 3 Est. Patient 19:17:33 CDT Alina Castaneda MD [facility]-09369 Level 3 Est. Patient 13:19:10 CDT Marvel Charles [facility]-06435 Level 3 Est. Patient 08:20:05 CDT Alina Castaneda MD [facility]71279 Level 3 Est. Patient 15:17:18 CDT Alina Castaneda MD [facility]12045 Level 3 Est. Patient 14:25:36 [facility]-31403 Level 3 Est. Patient 10:09:15 [employer]PL[employer] Marvel Charles [facility]-55125 Level 3 Est. Patient 21:28:43 CDT Alina Castaneda MD [facility]-04388 Level 3 Est. Patient 15:20:11 CDT Marvel Thurstonestela [facility]-32641 Level 4 Est. Patient 19:08:12 CDT Alina Castaneda MD [facility]-86447 Level 3 Est. Patient 15:06:39 CDT Marvel Gurdeepajayestela [facility]-21442 Level 4 Est. Patient 17:48:15 CDT Alina Castaneda MD [facility]98606 Level 3 Est. Patient 14:53:49 CDT Alina Castaneda MD [facility]-96966 Level 3 Est. Patient 09:35:16 CDT Alina Castaneda MD [facility]-08083 Level 3 Est. Patient 12:23:22 CDT Alina Castaneda MD [facility]87731 Level 3 Est. Patient 16:19:15 CDT Alina Castaneda MD [facility]89024 Level 3 Est. Patient 21:39:56 [employer]PLANE [employer]TAIN Alina Castaneda MD [facility]08912 Level 4 Est. Patient 14:12:56 [employer]PL[employer]TAIN Alina Castaneda MD [facility]85287 Level 2 Est. Patient 15:34:57 AIRPLANE CAPTAIN Alina Castaneda MD [facility]-81701 Level 3 Est. Patient 12:17:04 AIRPLANE CAPTAIN Alina Castaneda MD [facility]-71802 Level 3 Est. Patient 09:18:18 AIRPL[employer] Marvel Charles [facility]-52925 Level 2 Est. Patient 21:50:24 CDT Alina Castaneda MD [facility]33104 Level 3 Est. Patient 09:17:28 CDT Marvel Charles [facility]-50099 Level 4 Est. Patient 18:54:02 CDT Alina Castaneda MD [facility]-46304 Level 3 Est. Patient 10:47:10 CDT Alina Castaneda MD [facility]64530 Level 3 Est. Patient 09:22:20 CDT Marvel Charles [facility]51867 Level 3 Est. Patient 16:39:43 CDT Marvel Charles [facility]-77928 Level 3 Est. Patient 16:05:16 CDT Alina Castaneda MD [facility] CPT-21049 Level 3 Est. Patient 00:29:15 CDT Alina Castaneda MD [facility] CPT-10663 Level 3 Est. Patient 10:49:22 [facility] CPT-76734 Level 3 Est. Patient 21:30:19 AIRPLANE CAPTAIN Alina Castaneda MD [facility] CPT-41159 Level 4 Est. Patient 17:04:11 AIRPLANE CAPTAIN [facility] CPT-08954 Level 3 Est. Patient 15:34:[address] [facility]63 Level 2 Est. Patient 12:51:58 AIRPLANE CAPTAIN Alina Castaneda MD [facility] CPT-64459 Level 3 Est. Patient 13:20:01 AIRPLANE [employer]TAIN Alina Castaneda MD [facility] CPT-76242 Level 3 Est. Patient 09:23:35 CDT Alina Castaneda MD [facility] Procedures Code Procedure Name Date Entry Date Standard Description CPT-G0008 Administration of Influenza Virus Vaccine 13:05:26 CDT CPT-39315 Fluzone Quadrivalent Intramuscular Suspension 0.5 ML 13: 05:26 CDT CPT-55417 Administration single or combination vaccine inc oral 11 :49:51 CDT CPT-72647 Pneumovax 11:49:51 CDT CPT-13186 Ribs unilateral 2V 12:37:22 AIRPL[employer] CPT-02823 Chest 2V Frontal and Lat 17:15:26 CDT CPT-37975 Abx/Therapy Injection 18:54:02 CDT CPT-J0696 Rocephin 1000 mg (Ceftriaxone) 16:00:32 CDT CPT-63858 Chest 2V Frontal and Lat 15:26:45 CDT CPT-12562 Chest 2V Frontal and Lat 10:23:27 CDT CPT-79684 Venipuncture Draw Fee 10:11:00 CDT CPT-41094 Administration single or combination vaccine inc oral 11 :56:38 CDT CPT-47992 Influenza split virus > age 3 11:56:38 CDT CPT-46362 Venipuncture Draw Fee 08:49:54 AIRPLANE CAPTAIN CPT-93451 EKG Trac and Interp 17:54:19 AIRPLANE CAPTAIN
--- OUTSIDE RECORDS SUMMARY | 2018-07-02 19:47 | XMS REPORT | Clinical Summary ---
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 Alina Castaneda MD PhD Recurrent isolated sleep paralysis SPECIAL SCREENING FOR MALIGNANT NEOPLASM OF PROSTATE V76.44 Resolved Alina Castaneda MD PhD Screening for malignant neoplasms of prostate Hypoglycemia 251.2 Resolved Alina Castaneda MD PhD Hypoglycemia, unspecified Diabetes mellitus, type II 250.00 Active Mallashondaeh Bertrandari PANEL LAMINATOR Diabetes mellitus without mention of complication, type II or unspecified type, not stated as uncontrolled Dizziness 780.4 Resolved Alina Castaneda MD PhD Dizziness and giddiness Confusion 298.9 Resolved Alina Castaneda MD PhD Unspecified psychosis INCONTINENCE, URGE 788.31 Active aVnessa Hickey MD Urge incontinence Lower Urinary Tract [...] Generic Name NDC Status Provider Patient Instruction PENICILLIN V POTASSIUM 500 MG TABS 1 pill by mouth three times daily PENICILLIN V POTASSIUM 37505371573 Active Alina Castaneda MD PhD Active MORPHINE SULFATE 30 MG TABS 1 pill by mouth nightly, for pain MORPHINE SULFATE 55076665144 Active Alina Castaneda MD PhD Active LATUDA 80 MG TABS 1 tab by mouth every evening LURASIDONE HCL 82991904750 Active Alina Castaneda MD PhD Active UROXATRAL 10 MG [id number]-SBF Take 1 tablet by mouth daily ALFUZOSIN HCL 48427103627 No Longer Active Alina Castaneda MD PhD Active THIOTHIXENE 5 MG CAPS by mouth twice a day THIOTHIXENE 92053983129 No Longer Active Alina Castaneda MD PhD Active ZYPREXA 7.5 MG TABS 1 at HS OLANZAPINE 74727520471 No Longer Active Alina Castaneda MD PhD Active HUMALOG 100 UNIT/ML SOLN Take 20 units with breakfast, 10u with lunch and suppetr. INSULIN LISPRO (HUMAN) 77232792978 Active Maliheh Ziglari PANEL LAMINATOR Active LEVEMIR 100 UNIT/ML SOLN Take 70 u at 7-8pm INSULIN DETEMIR 50599554332 Active Maliheh Ziglari PANEL LAMINATOR Active BD INSULIN SYRINGE 28G X 1/2" 1 ML MISC 1 four times per day INSULIN SYRINGE-NEEDLE U-100 39768675464 Active Maliheh Ziglari PANEL LAMINATOR Active CYCLOBENZAPRINE HCL 10 MG TABS 1 tablet by mouth three times daily, scheduled CYCLOBENZAPRINE HCL 91601544354 Active Alina Castaneda MD PhD Active TOLTERODINE TARTRATE 2 MG TABS 1 pill twice daily, for bladder TOLTERODINE TARTRATE 62601092186 Active Alina Castaneda MD PhD Active DETROL LA 4 MG [id number] Take 1 tablet by mouth daily TOLTERODINE TARTRATE 82073324371 No Longer Active Alina Castaneda MD PhD Active HYDROCODONE-ACETAMINOPHEN 5-325 MG TABS 2 tabs by mouth three times daily as needed for pain HYDROCODONE-ACETAMINOPHEN 72561870101 Active Rhett Luther DO Active TERESE CONTOUR TEST STRP monitor blood sugars 3x/day GLUCOSE BLOOD 88945780464 No Longer Active Alina Castaneda MD PhD Active EQL TRUETEST TEST STRP Test blood sugar TID GLUCOSE BLOOD 29105618043 No Longer Active Alina Castaneda MD PhD Active FLUTICASONE PROPIONATE 50 MCG/ACT SUSP 2 sprays each nostril qDay x 30 days FLUTICASONE PROPIONATE 66246352394 No Longer Active Alina Castaneda MD PhD Active IBUPROFEN 200 MG TABS 1 Q 6 hr. PRN IBUPROFEN 39706163766 No Longer Active Alina Castaneda MD PhD Active NIACIN ER 500 MG CR-TABS 4 qHS (for triglycerides) NIACIN 33899275003 No Longer Active Alina Castaneda MD PhD Active TRUETEST TEST STRP check sugars 4x/day GLUCOSE BLOOD 15570633322 Active Marvel MENDOZAP Active ALFUZOSIN HCL ER 10 MG [id number] 1 tablet daily ALFUZOSIN HCL 80915236572 Active Vanessa Hickey MD Active CLONAZEPAM 1 MG TABS 1 pill by mouth three times daily CLONAZEPAM 24415580423 Active Alina Castaneda MD PhD Active LOVAZA 1 GM CAPS 4 daily (for triglycerides) [id number]-6-GHZL ETHYL ESTERS 56105387535 Active Alina Castaneda MD PhD Active SAPHRIS 5 MG SUBL by mouth twice a day ASENAPINE MALEATE 88045058767 No Longer Active Marvel Thurstonari PANEL LAMINATOR Active ACETAMINOPHEN 500 MG TABS 2 Q 6 hr. PRN ACETAMINOPHEN 19046081626 No Longer Active Mallashondaeh Ziglari PANEL LAMINATOR Active VERAPAMIL HCL ER 120 MG [id number] 1 pill by mouth twice a day, for headache prevention/control VERAPAMIL HCL 86979259085 Active Alina Castaneda MD PhD Active ORPHENADRINE CITRATE ER 100 MG [id number] 1 every 12 hr. as needed ORPHENADRINE CITRATE 96227488252 No Longer Active Alina Castaneda MD PhD Active NIACIN CR 500 MG CR-TABS 2 qHS NIACIN 26333199341 No Longer Active Alina Castaneda MD PhD Active AMOXICILLIN 500 MG CAPS 2 po BID x 10 days AMOXICILLIN 93231868160 No Longer Active Alina Castaneda MD PhD Active HYDROCODONE-ACETAMINOPHEN 7.5-325 MG TABS 1 four times a day as needed for pain HYDROCODONE-ACETAMINOPHEN 05600549554 No Longer Active Alina Castaneda MD PhD Active METFORMIN HCL ER 500 MG [id number]-TZU Take three tablets by mouth everyday METFORMIN HCL 89541900449 Active Alina Castaneda MD PhD Active DOXEPIN HCL 10 MG CAPS Take 1 tablet by mouth daily DOXEPIN HCL 29267422833 No Longer Active Salina Han [facility] Active NAVANE 10 MG CAPS 1/2 tablet twice a day THIOTHIXENE No Longer Active Salina ROBBINS Active CYCLOBENZAPRINE HCL 10 MG TABS 1/2 tablet by mouth every 8 hours as needed for muscle spasms CYCLOBENZAPRINE HCL 84809686538 No Longer Active Alina Castaneda MD PhD Active BACTROBAN 2 % CREAM apply to ear and nose twice daily MUPIROCIN CALCIUM 78395845758 No Longer Active Ailna Castaneda MD PhD Active HYDROCODONE-ACETAMINOPHEN 5-325 MG TABS take one tablet by mouth every four hours as needed for pain HYDROCODONE-ACETAMINOPHEN 98779845663 No Longer Active Alina Castaneda MD PhD Active ZOLPIDEM TARTRATE 10 MG TABS take at bedtime ZOLPIDEM TARTRATE 73979069222 Active Alina Castaneda MD PhD Active ZYPREXA 5 MG TABS take one tablet by mouth every evening OLANZAPINE 07657420143 No Longer Active Alina Castaneda MD PhD Active ALBUTEROL SULFATE 0.083 % NEBU SOLN one vial per nebulizer TID and PRN cough/ soa ALBUTEROL SULFATE 63898822183 No Longer Active Alina Castaneda MD PhD Active GUAIFENESIN 600 MG AG36H-YZS 1 tablet by mouth twice daily if needed for cough GUAIFENESIN 97633777389 No Longer Active Marvel MARROQUIN Active AZITHROMYCIN 500 MG SOLR 1 po q day AZITHROMYCIN 76758852196 No Longer Active Alina Castaneda MD PhD Active METOPROLOL SUCCINATE 100 MG MF24L-JLQ 1 by mouth daily for blood pressure METOPROLOL SUCCINATE 03260825300 Active Alina Castaneda MD PhD Active PROMETHAZINE-CODEINE 6.25-10 MG/5ML SYRP 1 tsp po q 6 hours prn cough PROMETHAZINE-CODEINE 47853666590 No Longer Active Alina Castaneda MD PhD Active CEFDINIR 300 MG CAPS by mouth twice a day CEFDINIR 61278100138 No Longer Active Alina Castaneda MD PhD Active METFORMIN HCL 500 MG NN51G-SDS Take 3 tablets by mouth everyday METFORMIN HCL 80268165192 No Longer Active Alina Castaneda MD PhD Active LEVEMIR 100 UNIT/ML SOLN 90 units SQ qHS INSULIN DETEMIR 28729096593 No Longer Active Marvel MARROQUIN Active TOPROL XL 100 MG SF90U-EGK 1 @ HS METOPROLOL SUCCINATE 85170085090 No Longer Active Marvel MARROQUIN Active ALLOPURINOL 300 MG TABS Take one by mouth daily ALLOPURINOL 06812332255 Active Alina Castandea MD PhD Active ZYPREXA 10 MG TABS Take one by mouth daily OLANZAPINE 11742677771 No Longer Active Alina Castaneda MD PhD Active NOVOLOG 100 UNIT/ML SOLN 40 units with every meal INSULIN ASPART 42845888946 No Longer Active Alina Castaneda MD PhD Active VERAPAMIL HCL CR 120 MG TAB CR 1 qPM VERAPAMIL HCL 03779801449 No Longer Active Salina ROJAS Active ZYPREXA 15 MG TABS Take 1 tablet by mouth daily OLANZAPINE 50723314470 No Longer Active Marvel MARROQUIN Active LISINOPRIL 20 MG TABS 1 BID LISINOPRIL 38277798095 Active Alina Castaneda MD PhD Active ALBUTEROL SULFATE (2.5 MG/3ML) 0.083% NEBU 1 neb tid and prn cough ALBUTEROL SULFATE 49681918678 No Longer Active Alina Castaneda MD PhD Active FLUVOXAMINE MALEATE 100 MG TABS Take one (1) tablet by mouth am, 1/2 at noon, 1 pm FLUVOXAMINE MALEATE 85414962068 Active Alina Castaneda MD PhD Active TRAVATAN Z 0.004 % SOLN 1 gtt each eye daily TRAVOPROST 06847072367 Active CRYSTAL Suarez Active LANTUS 100 UNIT/ML SOLN 60 units sq q hs INSULIN GLARGINE 56323861254 No Longer Active CRYSTAL Suarez Active ALBUTEROL SULFATE (2.5 MG/3ML) 0.083% NEBU 1 neb tid and prn cough ALBUTEROL SULFATE (2.5 MG/3ML) 0.083% NEBU 216366 ALBUTEROL SULFATE Inactive ZYPREXA 15 MG TABS Take 1 tablet by mouth daily ZYPREXA 15 MG TABS 390241 OLANZAPINE Inactive VERAPAMIL HCL CR 120 MG TAB CR 1 qPM VERAPAMIL HCL CR 120 MG TAB CR VERAPAMIL HCL Inactive ZYPREXA 10 MG TABS Take one by mouth daily ZYPREXA 10 MG TABS 675936 OLANZAPINE Inactive TOPROL XL 100 MG [id number] 1 @ HS TOPROL XL 100 MG IQ18K-EDJ METOPROLOL SUCCINATE Inactive LEVEMIR 100 UNIT/ML SOLN 90 units SQ qHS LEVEMIR 100 UNIT/ML SOLN INSULIN DETEMIR Inactive PROMETHAZINE-CODEINE 6.25-10 MG/5ML SYRP 1 tsp po q 6 hours prn cough PROMETHAZINE-CODEINE 6.25-10 MG/5ML SYRP 780913 PROMETHAZINE- CODEINE Inactive GUAIFENESIN 600 MG ZC17B-HYW 1 tablet by mouth twice daily if needed for cough GUAIFENESIN 600 MG BE92L-IEX GUAIFENESIN Inactive ALBUTEROL SULFATE 0.083 % NEBU SOLN one vial per nebulizer TID and PRN cough/ soa ALBUTEROL SULFATE 0.083 % NEBU SOLN 934674 ALBUTEROL SULFATE Inactive ZYPREXA 5 MG TABS take one tablet by mouth every evening ZYPREXA 5 MG TABS 277584 OLANZAPINE Inactive HYDROCODONE-ACETAMINOPHEN 5-325 MG TABS take one tablet by mouth every four hours as needed for pain HYDROCODONE-ACETAMINOPHEN 5-325 MG TABS 118847 HYDROCODONE-ACETAMINOPHEN Inactive BACTROBAN 2 % CREAM apply to ear and nose twice daily BACTROBAN 2 % CREAM 709102 MUPIROCIN CALCIUM Inactive CYCLOBENZAPRINE HCL 10 MG TABS 1/2 tablet by mouth every 8 hours as needed for muscle spasms CYCLOBENZAPRINE HCL 10 MG TABS 063295 CYCLOBENZAPRINE HCL Inactive NAVANE 10 MG CAPS 1/2 tablet twice a day NAVANE 10 MG CAPS THIOTHIXENE Inactive DOXEPIN HCL 10 MG CAPS Take 1 tablet by mouth daily DOXEPIN HCL 10 MG CAPS 7417301 DOXEPIN HCL Inactive HYDROCODONE-ACETAMINOPHEN 7.5-325 MG TABS 1 four times a day as needed for pain HYDROCODONE-ACETAMINOPHEN 7.5-325 MG TABS 272399 HYDROCODONE-ACETAMINOPHEN Inactive NIACIN CR 500 MG CR-TABS 2 qHS NIACIN CR 500 MG CR- TABS NIACIN Inactive ORPHENADRINE CITRATE ER 100 MG [id number] 1 every 12 hr. as needed ORPHENADRINE CITRATE ER 100 MG TE72R-CHE ORPHENADRINE CITRATE Inactive ACETAMINOPHEN 500 MG TABS 2 Q 6 hr. PRN ACETAMINOPHEN 500 MG TABS 216960 ACETAMINOPHEN Inactive SAPHRIS 5 MG SUBL by mouth twice a day SAPHRIS 5 MG SUBL ASENAPINE MALEATE Inactive NIACIN ER 500 MG CR-TABS 4 qHS (for triglycerides) NIACIN ER 500 MG CR-TABS NIACIN Inactive IBUPROFEN 200 MG TABS 1 Q 6 hr. PRN IBUPROFEN 200 MG TABS 179554 IBUPROFEN Inactive FLUTICASONE PROPIONATE 50 MCG/ACT SUSP 2 sprays each nostril qDay x 30 days FLUTICASONE PROPIONATE 50 MCG/ACT SUSP 061770 FLUTICASONE PROPIONATE Inactive EQL TRUETEST TEST STRP Test blood sugar TID EQL TRUETEST TEST STRP GLUCOSE BLOOD Inactive TERESE CONTOUR TEST STRP monitor blood sugars 3x/day TERESE CONTOUR TEST STRP GLUCOSE BLOOD Inactive DETROL LA 4 MG [id number] Take 1 tablet by mouth daily DETROL LA 4 MG [id number]-EAE TOLTERODINE TARTRATE Inactive ZYPREXA 7.5 MG TABS 1 at HS ZYPREXA 7.5 MG TABS 409542 OLANZAPINE Inactive THIOTHIXENE 5 MG CAPS by mouth twice a day THIOTHIXENE 5 MG CAPS 711715 THIOTHIXENE Inactive UROXATRAL 10 MG ZM17L-XRP Take 1 tablet by mouth daily UROXATRAL 10 MG MN30V-NSS ALFUZOSIN HCL Inactive CEFDINIR 300 MG CAPS by mouth twice a day CEFDINIR 300 MG CAPS 681197 CEFDINIR Inactive AZITHROMYCIN 500 MG SOLR 1 po q day AZITHROMYCIN 500 MG SOLR 049573 AZITHROMYCIN Inactive AMOXICILLIN 500 MG CAPS 2 po BID x 10 days AMOXICILLIN 500 MG CAPS 115160 AMOXICILLIN Inactive Immunizations Vaccine Administration Date Value [...] Fluvirin, Fluarix, Agriflu(>=18 yo)) Fluzone (>3 yrs.) [[id number]] Influenza, seasonal, injectable pneumococcal immunization administered Pneumovax [...] HGBA1C - Chemistry sodium, serum 130 mmol/L 450-764 8116/06/09 potassium, serum 4.0 mmol/L 3.5-5.2 chloride, serum 92 mmol/L 98-107 carbon dioxide, venous blood 22.1 mmol/L 21.0-32.0 blood glucose 60 mg/dL 65-110 calcium, serum 9.5 mg/dL 8.5-10.1 urea nitrogen, blood 14 mg/dL 7-18 creatinine, serum 1.30 mg/dL 0.60-1.30 hemoglobin A1C, blood, as % of total hemoglobin 6.0 % 4.3-6.0 sodium, serum 131 mmol/L 728-765 5318/12/30 potassium, serum 5.0 mmol/L 3.5-5.2 chloride, serum [...] 6.0 mg/dL 2.6-7.2 sodium, serum 130 mmol/L 415-086 5400/05/01 potassium, serum 5.2 mmol/L 3.5-5.2 chloride, serum [...] 0.40 mg/dL 0.00-1.00 cholesterol, serum 151 mg/dL 765-389 5814/05/01 triglyceride, serum, fasting 356 mg/dL 30-200 HDL [...] Panel - Chemistry sodium, serum 127 mmol/L 961-708 0649/10/27 potassium, serum 4.1 mmol/L 3.5-5.2 chloride, serum [...] mg/dL 0.00-1.00 Lab Report: Comp. Metabolic Panel, [facility] - Chemistry sodium, serum 126 mmol/L 896-114 8591/02/26 potassium, serum 4.8 mmol/L 3.5-5.2 chloride, serum 92 mmol/L 98-107 carbon dioxide, venous blood 27.7 mmol/L 21.0-32.0 blood glucose 229 mg/dL 65-110 urea nitrogen, blood 10 mg/dL 7-18 creatinine, serum 1.00 mg/dL 0.60-1.30 alanine aminotransferase (SGPT), serum 137 U/L -78 aspartate aminotransferase (SGOT), serum 58 U/L 15-37 [...] mg/dL Encounters Code Encounter Date Provider Facility CPT-30571 Level 3 Est. Patient 19:52:08 IT SOFTWARE ENGINEER Alina Castaneda MD [facility] CPT-49088 Level 3 Est. Patient 10:01:51 IT SOFTWARE ENGINEER [facility] Level 3 Est. Patient 21:54:06 CDT Vanessa Hickey MD [facility] CPT-65298 Level 3 Est. Patient 08:54:46 CDT Alina Castaneda MD [facility] CPT-41878 Level 3 Est. Patient 09:32:11 [facility] [place] CPT-49538 Level 3 Est. Patient 12:02:49 CDT Alina Castaneda MD [facility] CPT-20723 Level 3 Est. Patient 19:17:33 CDT Alina Castaneda MD [facility] CPT-68927 Level 3 Est. Patient 13:19:10 [facility]T [facility] [place] CPT-01563 Level 3 Est. Patient 08:20:05 CDT Alina Castaneda MD [facility]-20195 Level 3 Est. Patient 15:17:18 CDT Alina Castaneda MD PhD [facility] CPT-74986 Level 3 Est. Patient 14:25:36 IT SOFTWARE ENGINEER Marvel [facility] [place] CPT-04912 Level 3 Est. Patient 10:09:15 IT SOFTWARE ENGINEER Marvel [facility] [place] CPT-82859 Level 3 Est. Patient 21:28:43 CDT Alina Castaneda MD [facility]-73424 Level 3 Est. Patient 15:20:11 CDT Marvel [facility] [place] CPT-63261 Level 4 Est. Patient 19:08:12 CDT Alina Castaneda MD [facility]-00429 Level 3 Est. [facility]:06:39 [facility] Est. Patient 17:48:15 CDT Alina Castaneda MD [facility]-35122 Level 3 Est. Patient 14:53:49 CDT Alina Castaneda MD [facility]-05037 Level 3 Est. Patient 09:35:16 CDT Alina Castaneda MD [facility]-95037 Level 3 Est. Patient 12:23:22 CDT Alina Castaneda MD [facility]-22639 Level 3 Est. Patient 16:19:15 CDT Alina Castaneda MD [facility]-40216 Level 3 Est. Patient 21:39:56 IT SOFTWARE ENGINEER Alina Castaneda MD [facility]-58614 Level 4 Est. Patient 14:12:56 IT SOFTWARE ENGINEER Alina Castaneda MD [facility]-97739 Level 2 Est. Patient 15:34:57 IT SOFTWARE ENGINEER Alina Castaneda MD [facility]-68552 Level 3 Est. Patient 12:17:04 IT SOFTWARE ENGINEER Alina Castaneda MD [facility]-82958 Level 3 Est. Patient 09:18:18 IT SOFTWARE ENGINEER Marvel [facility] [place]-93633 Level 2 Est. Patient 21:50:24 CDT Alina Castaneda MD [facility]-08341 Level 3 Est. Patient 09:17:28 CDT Marvel [facility]-76481 Level 4 Est. Patient 18:54:02 CDT Alina Castaneda MD [facility]-09916 Level 3 Est. Patient 10:47:10 CDT Alina Castaneda MD [facility]-94396 Level 3 Est. Patient 09:22:20 CDT Marvel [facility]-93591 Level 3 Est. Patient 16:39:43 [facility]T [facility] [place]-23639 Level 3 Est. Patient 16:05:16 CDT Alina Castaneda MD [facility]-91860 Level 3 Est. Patient 00:29:15 CDT Alina Castaneda MD [facility]-95720 Level 3 Est. Patient 10:49:22 IT SOFTWARE ENGINEER Marvel [facility]-96241 Level 3 Est. Patient 21:30:19 IT SOFTWARE ENGINEER Alina Castaneda MD [facility]71981 Level 4 Est. Patient 17:04:11 IT SOFTWARE ENGINEER Marvel [facility]-74309 Level 3 Est. Patient 15:34:11 IT SOFTWARE ENGINEER Marvel [facility]-80228 Level 2 Est. Patient 12:51:58 IT SOFTWARE ENGINEER Alina Castaneda MD PhD [facility] CPT-35864 Level 3 Est. Patient 13:20:01 IT SOFTWARE ENGINEER Alina Castaneda MD [facility] CPT-23762 Level 3 Est. Patient 09:23:35 CDT Alina Castaneda MD PhD [facility] Procedures Code Procedure Name Date Entry Date Standard Description CPT-25145 Bladder Scan 21:54:06 CDT CPT-G0008 Administration of Influenza Virus Vaccine 13:05:26 CDT CPT-34163 Fluzone Quadrivalent Intramuscular Suspension 0.5 ML 13: 05:26 CDT CPT-33602 Administration single or combination vaccine inc oral 11 :49:51 CDT CPT-14183 Pneumovax 11:49:51 CDT CPT-52019 Ribs unilateral 2V 12:37:22 IT SOFTWARE ENGINEER CPT-73588 Chest 2V Frontal and Lat 17:15:26 CDT CPT-13076 Abx/Therapy Injection 18:54:02 CDT CPT-J0696 Rocephin 1000 mg (Ceftriaxone) 16:00:32 CDT CPT-68219 Chest 2V Frontal and Lat 15:26:45 CDT CPT-99737 Chest 2V Frontal and Lat 10:23:27 CDT CPT-78764 Venipuncture Draw Fee 10:11:00 CDT CPT-77741 Administration single or combination vaccine inc oral 11 :56:38 CDT CPT-39359 Influenza split virus > age 3 11:56:38 CDT CPT-43300 Venipuncture Draw Fee 08:49:54 IT SOFTWARE ENGINEER CPT-94443 EKG Trac and Interp 17:54:19 IT SOFTWARE ENGINEER
--- OUTSIDE RECORDS SUMMARY | 2018-07-02 19:48 | XMS REPORT | Clinical Summary ---
Author Author Admin, TERELL Organization [facility] Address Unknown Phone Allergies, Adverse Reactions, [...] four times per day INSULIN SYRINGE-NEEDLE U-100 [id number] Active Alina Castaneda MD PhD Active CYCLOBENZAPRINE HCL 10 MG TABS 1 tablet by mouth three times daily, scheduled CYCLOBENZAPRINE HCL 76083734010 Active Alina Castaneda MD PhD Active HUMALOG 100 UNIT/ML SOLN take 40u with each meal INSULIN LISPRO (HUMAN) 50798061094 Active Alina Castaneda MD PhD Active TOLTERODINE TARTRATE 2 MG TABS 1 pill twice daily, for bladder TOLTERODINE TARTRATE 31309762538 Active Alina Castaneda MD PhD Active DETROL LA 4 MG [id number] Take 1 tablet by mouth daily TOLTERODINE TARTRATE 63120469184 No Longer Active Alina Castaneda MD PhD Active HYDROCODONE-ACETAMINOPHEN 5-325 MG TABS 2 tabs by mouth three times daily as needed for pain HYDROCODONE-ACETAMINOPHEN 62511647578 Active Alina Castaneda MD PhD Active TERESE CONTOUR TEST STRP monitor blood sugars 3x/day GLUCOSE BLOOD 89950205932 No Longer Active Alina Castaneda MD PhD Active EQL TRUETEST TEST STRP Test blood sugar TID GLUCOSE BLOOD 69928665018 No Longer Active Alina Castaneda MD PhD Active FLUTICASONE PROPIONATE 50 MCG/ACT SUSP 2 sprays each nostril qDay x 30 days FLUTICASONE PROPIONATE 49751766021 No Longer Active Alina Castaneda MD PhD Active IBUPROFEN 200 MG TABS 1 Q 6 hr. PRN IBUPROFEN 22621091976 No Longer Active Alina Castaneda MD PhD Active NIACIN ER 500 MG CR-TABS 4 qHS (for triglycerides) NIACIN 10348253838 No Longer Active Alina Castaneda MD PhD Active LEVEMIR 100 UNIT/ML SOLN Take 100u at 7-8pm INSULIN DETEMIR 36974114533 Active Alina Castaneda MD PhD Active TRUETEST TEST STRP check sugars 4x/day GLUCOSE BLOOD 29206555715 Active Alina Castaneda MD PhD Active ALFUZOSIN HCL ER 10 MG [id number] 1 tablet daily ALFUZOSIN HCL 98779837809 Active Vanessa Hickey MD Active CLONAZEPAM 1 MG TABS 1 pill by mouth three times daily CLONAZEPAM 75108413585 Active Alina Castaneda MD PhD Active LOVAZA 1 GM CAPS 4 daily (for triglycerides) [id number] ETHYL ESTERS 47800959876 Active Alina Castaneda MD PhD Active SAPHRIS 5 MG SUBL by mouth twice a day ASENAPINE MALEATE 95588237709 No Longer Active Maliheh Gurdeepglestela [facility] Active ACETAMINOPHEN 500 MG TABS 2 Q 6 hr. PRN ACETAMINOPHEN 01905677645 No Longer Active Marvel MENDOZAP Active VERAPAMIL HCL ER 120 MG [id number] 1 pill by mouth twice a day, for headache prevention/control VERAPAMIL HCL 03011547939 Active Alina Castaneda MD PhD Active ORPHENADRINE CITRATE ER 100 MG [id number]-PRJ 1 every 12 hr. as needed ORPHENADRINE CITRATE 95237630386 No Longer Active Alina Castaneda MD PhD Active NIACIN CR 500 MG CR-TABS 2 qHS NIACIN 99953959582 No Longer Active Alina Castaneda MD PhD Active AMOXICILLIN 500 MG CAPS 2 po BID x 10 days AMOXICILLIN 62804270796 No Longer Active Alina Castaneda MD PhD Active ZYPREXA 7.5 MG TABS 1 at HS OLANZAPINE 38454029271 Active Alina Castaneda MD PhD Active THIOTHIXENE 5 MG CAPS by mouth twice a day THIOTHIXENE 60092917566 Active Alina Castaneda MD PhD Active HYDROCODONE-ACETAMINOPHEN 7.5-325 MG TABS 1 four times a day as needed for pain HYDROCODONE-ACETAMINOPHEN 16832852955 No Longer Active Alina Castaneda MD PhD Active METFORMIN HCL ER 500 MG [id number]-MCX Take three tablets by mouth everyday METFORMIN HCL 38734775683 Active Marvel MENDOZAP Active DOXEPIN HCL 10 MG CAPS Take 1 tablet by mouth daily DOXEPIN HCL 46313827523 No Longer Active Salina Han [facility] Active NAVANE 10 MG CAPS 1/2 tablet twice a day THIOTHIXENE No Longer Active Salina ROBBINS Active CYCLOBENZAPRINE HCL 10 MG TABS 1/2 tablet by mouth every 8 hours as needed for muscle spasms CYCLOBENZAPRINE HCL 37823479130 No Longer Active Alina Castaneda MD PhD Active BACTROBAN 2 % CREAM apply to ear and nose twice daily MUPIROCIN CALCIUM 83855572471 No Longer Active Alina Castaneda MD PhD Active HYDROCODONE-ACETAMINOPHEN 5-325 MG TABS take one tablet by mouth every four hours as needed for pain HYDROCODONE-ACETAMINOPHEN 54925194070 No Longer Active Alina Castaneda MD PhD Active ZOLPIDEM TARTRATE 10 MG TABS take at bedtime ZOLPIDEM TARTRATE 09211329436 Active Alina Castaneda MD PhD Active ZYPREXA 5 MG TABS take one tablet by mouth every evening OLANZAPINE 70434364669 No Longer Active Alina Castaneda MD PhD Active ALBUTEROL SULFATE 0.083 % NEBU SOLN one vial per nebulizer TID and PRN cough/ soa ALBUTEROL SULFATE 19948252254 No Longer Active Alina Castaneda MD PhD Active GUAIFENESIN 600 MG [id number]-[id number] 1 tablet by mouth twice daily if needed for cough GUAIFENESIN 60488184661 No Longer Active Marvel MARROQUIN Active AZITHROMYCIN 500 MG SOLR 1 po q day AZITHROMYCIN 73876030154 No Longer Active Alina Castaneda MD PhD Active METOPROLOL SUCCINATE 100 MG [id number]-AUJ 1 by mouth daily for blood pressure METOPROLOL SUCCINATE 80742902926 Active Alina Castaneda MD PhD Active PROMETHAZINE-CODEINE 6.25-10 MG/5ML SYRP 1 tsp po q 6 hours prn cough PROMETHAZINE-CODEINE 94722042539 No Longer Active Alina Castaneda MD PhD Active CEFDINIR 300 MG CAPS by mouth twice a day CEFDINIR 67461346860 No Longer Active Alina Castaneda MD PhD Active METFORMIN HCL 500 MG [id number]-SHX Take 3 tablets by mouth everyday METFORMIN HCL 96671222001 No Longer Active Alina Castaneda MD PhD Active LEVEMIR 100 UNIT/ML SOLN 90 units SQ qHS INSULIN DETEMIR 12167960990 No Longer Active Marvel MARROQUIN Active TOPROL XL 100 MG UR84G-UEV 1 @ HS METOPROLOL SUCCINATE 28682217543 No Longer Active Marvel MARROQUIN Active ALLOPURINOL 300 MG TABS Take one by mouth daily ALLOPURINOL 94258886647 Active Alina Castaneda MD PhD Active ZYPREXA 10 MG TABS Take one by mouth daily OLANZAPINE 68281369160 No Longer Active Alina Castaneda MD PhD Active NOVOLOG 100 UNIT/ML SOLN 40 units with every meal INSULIN ASPART 29649607951 No Longer Active Alina Castaneda MD PhD Active VERAPAMIL HCL CR 120 MG TAB CR 1 qPM VERAPAMIL HCL 92593808620 No Longer Active Salina Han A Active ZYPREXA 15 MG TABS Take 1 tablet by mouth daily OLANZAPINE 21768028862 No Longer Active Marvel MARROQUIN Active LISINOPRIL 20 MG TABS 1 BID LISINOPRIL 53382401368 Active Mao Rodriguez MD Active ALBUTEROL SULFATE (2.5 MG/3ML) 0.083% NEBU 1 neb tid and prn cough ALBUTEROL SULFATE 65490715694 No Longer Active Alina Castaneda MD PhD Active FLUVOXAMINE MALEATE 100 MG TABS Take one (1) tablet by mouth am, 1/2 at noon, 1 pm FLUVOXAMINE MALEATE 55064251582 Active Alina Castaneda MD PhD Active TRAVATAN Z 0.004 % SOLN 1 gtt each eye daily TRAVOPROST 61574213348 Active Alina Mendez Active LANTUS 100 UNIT/ML SOLN 60 units sq q hs INSULIN GLARGINE 12681438051 No Longer Active Alina Mendez Active UROXATRAL 10 MG [id number] Take 1 tablet by mouth daily ALFUZOSIN HCL 62336752568 Active Tanya MARROQUIN Active ALBUTEROL SULFATE (2.5 MG/3ML) 0.083% NEBU 1 neb tid and prn cough ALBUTEROL SULFATE (2.5 MG/3ML) 0.083% NEBU 177061 ALBUTEROL SULFATE Inactive ZYPREXA 15 MG TABS Take 1 tablet by mouth daily ZYPREXA 15 MG TABS 110178 OLANZAPINE Inactive VERAPAMIL HCL CR 120 MG TAB CR 1 qPM VERAPAMIL HCL CR 120 MG TAB CR VERAPAMIL HCL Inactive ZYPREXA 10 MG TABS Take one by mouth daily ZYPREXA 10 MG TABS 701813 OLANZAPINE Inactive TOPROL XL 100 MG [id number]-KMG 1 @ HS TOPROL XL 100 MG QY36N-FCC METOPROLOL SUCCINATE Inactive LEVEMIR 100 UNIT/ML SOLN 90 units SQ qHS LEVEMIR 100 UNIT/ML SOLN INSULIN DETEMIR Inactive PROMETHAZINE-CODEINE 6.25-10 MG/5ML SYRP 1 tsp po q 6 hours prn cough PROMETHAZINE-CODEINE 6.25-10 MG/5ML SYRP 322502 PROMETHAZINE- CODEINE Inactive GUAIFENESIN 600 MG EG12E-EBJ 1 tablet by mouth twice daily if needed for cough GUAIFENESIN 600 MG BP07C-KVI GUAIFENESIN Inactive ALBUTEROL SULFATE 0.083 % NEBU SOLN one vial per nebulizer TID and PRN cough/ soa ALBUTEROL SULFATE 0.083 % NEBU SOLN 993364 ALBUTEROL SULFATE Inactive ZYPREXA 5 MG TABS take one tablet by mouth every evening ZYPREXA 5 MG TABS 221316 OLANZAPINE Inactive HYDROCODONE-ACETAMINOPHEN 5-325 MG TABS take one tablet by mouth every four hours as needed for pain HYDROCODONE-ACETAMINOPHEN 5-325 MG TABS 653169 HYDROCODONE-ACETAMINOPHEN Inactive BACTROBAN 2 % CREAM apply to ear and nose twice daily BACTROBAN 2 % CREAM 796875 MUPIROCIN CALCIUM Inactive CYCLOBENZAPRINE HCL 10 MG TABS 1/2 tablet by mouth every 8 hours as needed for muscle spasms CYCLOBENZAPRINE HCL 10 MG TABS 972920 CYCLOBENZAPRINE HCL Inactive NAVANE 10 MG CAPS 1/2 tablet twice a day NAVANE 10 MG CAPS THIOTHIXENE Inactive DOXEPIN HCL 10 MG CAPS Take 1 tablet by mouth daily DOXEPIN HCL 10 MG CAPS 8945462 DOXEPIN HCL Inactive HYDROCODONE-ACETAMINOPHEN 7.5-325 MG TABS 1 four times a day as needed for pain HYDROCODONE-ACETAMINOPHEN 7.5-325 MG TABS 349944 HYDROCODONE-ACETAMINOPHEN Inactive NIACIN CR 500 MG CR-TABS 2 qHS NIACIN CR 500 MG CR- TABS NIACIN Inactive ORPHENADRINE CITRATE ER 100 MG [id number] 1 every 12 hr. as needed ORPHENADRINE CITRATE ER 100 MG [id number]-EBY ORPHENADRINE CITRATE Inactive ACETAMINOPHEN 500 MG TABS 2 Q 6 hr. PRN ACETAMINOPHEN 500 MG TABS 947150 ACETAMINOPHEN Inactive SAPHRIS 5 MG SUBL by mouth twice a day SAPHRIS 5 MG SUBL ASENAPINE MALEATE Inactive NIACIN ER 500 MG CR-TABS 4 qHS (for triglycerides) NIACIN ER 500 MG CR-TABS NIACIN Inactive IBUPROFEN 200 MG TABS 1 Q 6 hr. PRN IBUPROFEN 200 MG TABS 900326 IBUPROFEN Inactive FLUTICASONE PROPIONATE 50 MCG/ACT SUSP 2 sprays each nostril qDay x 30 days FLUTICASONE PROPIONATE 50 MCG/ACT SUSP 364771 FLUTICASONE PROPIONATE Inactive EQL TRUETEST TEST STRP Test blood sugar TID EQL TRUETEST TEST STRP GLUCOSE BLOOD Inactive TERESE CONTOUR TEST STRP monitor blood sugars 3x/day TERESE CONTOUR TEST STRP GLUCOSE BLOOD Inactive DETROL LA 4 MG [id number] Take 1 tablet by mouth daily DETROL LA 4 MG [id number]-WXL TOLTERODINE TARTRATE Inactive CEFDINIR 300 MG CAPS by mouth twice a day CEFDINIR 300 MG CAPS 072930 CEFDINIR Inactive AZITHROMYCIN 500 MG SOLR 1 po q day AZITHROMYCIN 500 MG SOLR 693463 AZITHROMYCIN Inactive AMOXICILLIN 500 MG CAPS 2 po BID x 10 days AMOXICILLIN 500 MG CAPS 589193 AMOXICILLIN Inactive Immunizations Vaccine Administration Date Value [...] Fluvirin, Fluarix, Agriflu(>=18 yo)) Fluzone (>3 yrs.) [[id number]] Influenza, seasonal, injectable pneumococcal immunization administered Pneumovax [...] acid - Chemistry sodium, serum 130 mmol/L 309-566 7141/05/01 potassium, serum 5.2 mmol/L 3.5-5.2 chloride, serum [...] 0.40 mg/dL 0.00-1.00 cholesterol, serum 151 mg/dL 033-644 2580/05/01 triglyceride, serum, fasting 356 mg/dL 30-200 HDL [...] HGBA1C - Chemistry sodium, serum 126 mmol/L 825-839 3280/02/26 potassium, serum 4.8 mmol/L 3.5-5.2 chloride, serum [...] DIRECT - Chemistry cholesterol, serum 158 mg/dL 294-096 7317/07/11 triglyceride, serum, fasting 489 mg/dL 30-200 HDL [...] mg/dL Encounters Code Encounter Date Provider Facility CPT-48991 Level 3 Est. Patient 08:20:05 CDT Alina Castaneda MD PhD [facility]-77589 Level 3 Est. Patient 15:17:18 CDT Alina Castaneda MD PhD [facility]-10008 Level 3 Est. Patient 14:25:36 FARM APPRAISER [facility]-99882 Level 3 Est. Patient 10:09:15 FARM APPRAISER [facility] CPT-99584 Level 3 Est. Patient 21:28:43 CDT Alina Castaneda MD PhD [facility]-31162 Level 3 Est. Patient 15:20:11 CDT [facility] Gurdeepestela [facility]-95861 Level 4 Est. Patient 19:08:12 CDT Alina Castaneda MD PhD [facility]99263 Level 3 Est. Patient 15:06:39 CDT [facility] Gurdeepestela [facility]-36095 Level 4 Est. Patient 17:48:15 CDT Alina Castaneda MD [facility]-59640 Level 3 Est. Patient 14:53:49 CDT Alina Castaneda MD [facility]-24270 Level 3 Est. Patient 09:35:16 CDT Alina Castaneda MD [facility]-43738 Level 3 Est. Patient 12:23:22 CDT Alina Castaneda MD [facility]-20877 Level 3 Est. Patient 16:19:15 CDT Alina Castaneda MD [facility]-54103 Level 3 Est. Patient 21:39:56 FARM APPRAISER Alina Castaneda MD [facility]-49998 Level 4 Est. Patient 14:12:56 FARM APPRAISER Alina Castaneda MD [facility]-85198 Level 2 Est. Patient 15:34:57 FARM APPRAISER Alina Castaneda MD [facility]-14326 Level 3 Est. Patient 12:17:04 FARM APPRAISER Alina Castaneda MD [facility]-88240 Level 3 Est. Patient 09:18:18 FARM APPRAISER Marvel Charles [facility]-55336 Level 2 Est. Patient 21:50:24 CDT Alina Castaneda MD [facility]-18247 Level 3 Est. Patient 09:17:28 CDT Marvel Charles [facility]-59371 Level 4 Est. Patient 18:54:02 CDT Alina Castaneda MD [facility]-70290 Level 3 Est. Patient 10:47:10 CDT Alina Castaneda MD [facility]-22602 Level 3 Est. Patient 09:22:20 [facility] 3 Est[facility]39[facility] CPT-71115 Level 3 Est. Patient 16:05:16 CDT Alina Castaneda MD [facility] CPT-04079 Level 3 Est. Patient 00:29:15 CDT Alina Castaneda MD [facility] CPT-80811 Level 3 Est. Patient 10:49:22 FARM APPRAISER Marvel Thurstonestela [facility] CPT-02307 Level 3 Est. Patient 21:30:19 FARM APPRAISER Alina Castaneda MD [facility] CPT-88346 Level 4 Est. Patient 17:04:11 [facility]018 Level 3 Est. Patient 15:34:11 FARM APPRAISER [facility] CPT-38399 Level 2 Est. Patient 12:51:58 FARM APPRAISER Alina Castaneda MD [facility] CPT-20116 Level 3 Est. Patient 13:20:01 FARM APPRAISER Alina Castaneda MD [facility] CPT-63416 Level 3 Est. Patient 09:23:35 CDT Alina Castaneda MD [facility] Procedures Code Procedure Name Date Entry Date Standard Description CPT-76994 Administration single or combination vaccine inc oral 11 :49:51 CDT CPT-54234 Pneumovax 11:49:51 CDT CPT-13914 Ribs unilateral 2V 12:37:22 FARM APPRAISER CPT-34871 Chest 2V Frontal and Lat 17:15:26 CDT CPT-55476 Abx/Therapy Injection 18:54:02 CDT CPT-J0696 Rocephin 1000 mg (Ceftriaxone) 16:00:32 CDT CPT-30795 Chest 2V Frontal and Lat 15:26:45 CDT CPT-45093 Chest 2V Frontal and Lat 10:23:27 CDT CPT-74813 Venipuncture Draw Fee 10:11:00 CDT CPT-22183 Administration single or combination vaccine inc oral 11 :56:38 CDT CPT-50646 Influenza split virus > age 3 11:56:38 CDT CPT-96842 Venipuncture Draw Fee 08:49:54 FARM APPRAISER CPT-88891 EKG Trac and Interp 17:54:19 FARM APPRAISER
--- OUTSIDE RECORDS SUMMARY | 2018-07-02 19:50 | XMS REPORT | Clinical Summary ---
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 Active Alina Castaneda MD PhD Recurrent isolated sleep paralysis SPECIAL SCREENING FOR MALIGNANT NEOPLASM OF PROSTATE V76.44 Resolved Alina Castaneda MD PhD Screening for malignant neoplasms of prostate Hypoglycemia 251.2 Resolved Alina Castaneda MD PhD Hypoglycemia, unspecified Diabetes mellitus, type II 250.00 Active Mallashondaeh Bertrandari ELECTROMECHANIC Diabetes mellitus without mention of complication, type [...] Generic Name NDC Status Provider Patient Instruction ACYCLOVIR 400 MG ORAL TABS 1 pill three times daily x 5 days, for cold sore outbreak ACYCLOVIR 03629962806 No Longer Active Alina Castaneda MD PhD Active PENICILLIN V POTASSIUM 500 MG TABS 1 pill by mouth three times daily PENICILLIN V POTASSIUM 93510825933 No Longer Active Alina Castaneda MD PhD Active MORPHINE SULFATE 30 MG TABS 1 pill by mouth nightly, for pain MORPHINE SULFATE 79472388043 Active Alina Castaneda MD PhD Active LATUDA 80 MG TABS 1 tab by mouth every evening LURASIDONE HCL 67608647803 Active Alina Castaneda MD PhD Active UROXATRAL 10 MG [id number] Take 1 tablet by mouth daily ALFUZOSIN HCL 79421233932 No Longer Active Alina Castaneda MD PhD Active THIOTHIXENE 5 MG CAPS by mouth twice a day THIOTHIXENE 35822551699 No Longer Active Alina Castaneda MD PhD Active ZYPREXA 7.5 MG TABS 1 at HS OLANZAPINE 32315888234 No Longer Active Alina Castaneda MD PhD Active HUMALOG 100 UNIT/ML SOLN Take 20 units with breakfast, 10u with lunch and suppetr. INSULIN LISPRO (HUMAN) 42618280155 Active Marvel MARROQUIN Active LEVEMIR 100 UNIT/ML SOLN Take 70 u at 7-8pm INSULIN DETEMIR 55346030667 Active Marvel Mackenzieglari ELECTROMECHANIC Active BD INSULIN SYRINGE 28G X 1/2" 1 ML MISC 1 four times per day INSULIN SYRINGE-NEEDLE U-100 65995478748 Active Marvel Mackenzieglari ELECTROMECHANIC Active CYCLOBENZAPRINE HCL 10 MG TABS 1 tablet by mouth three times daily, scheduled CYCLOBENZAPRINE HCL 01825359773 Active Alina Castaneda MD PhD Active TOLTERODINE TARTRATE 2 MG TABS 1 pill twice daily, for bladder TOLTERODINE TARTRATE 01481619564 Active Alina Castaneda MD PhD Active DETROL LA 4 MG [id number] Take 1 tablet by mouth daily TOLTERODINE TARTRATE 29323749861 No Longer Active Alina Castaneda MD PhD Active HYDROCODONE-ACETAMINOPHEN 5-325 MG TABS 2 tabs by mouth three times daily as needed for pain HYDROCODONE-ACETAMINOPHEN 77213738147 Active Rhett Luther DO Active TERESE CONTOUR TEST STRP monitor blood sugars 3x/day GLUCOSE BLOOD 57044353354 No Longer Active Alina Castaneda MD PhD Active EQL TRUETEST TEST STRP Test blood sugar TID GLUCOSE BLOOD 83104661007 No Longer Active Alina Castaneda MD PhD Active FLUTICASONE PROPIONATE 50 MCG/ACT SUSP 2 sprays each nostril qDay x 30 days FLUTICASONE PROPIONATE 70465560348 No Longer Active Alina Castaneda MD PhD Active IBUPROFEN 200 MG TABS 1 Q 6 hr. PRN IBUPROFEN 28320983541 No Longer Active Alina Castaneda MD PhD Active NIACIN ER 500 MG CR-TABS 4 qHS (for triglycerides) NIACIN 34985248412 No Longer Active Alina Castaneda MD PhD Active TRUETEST TEST STRP check sugars 4x/day GLUCOSE BLOOD 94447946459 Active Marvel MENDOZAP Active ALFUZOSIN HCL ER 10 MG [id number] 1 tablet daily ALFUZOSIN HCL 13916722657 Active Vanessa Hickey MD Active CLONAZEPAM 1 MG TABS 1 pill by mouth three times daily CLONAZEPAM 73028727724 Active Alina Castaneda MD PhD Active LOVAZA 1 GM CAPS 4 daily (for triglycerides) [id number] ETHYL ESTERS 41702254476 Active Alina Castaneda MD PhD Active SAPHRIS 5 MG SUBL by mouth twice a day ASENAPINE MALEATE 94392431295 No Longer Active Marvel MARROQUIN Active ACETAMINOPHEN 500 MG TABS 2 Q 6 hr. PRN ACETAMINOPHEN 29461818865 No Longer Active Marvel MARROQUIN Active VERAPAMIL HCL ER 120 MG [id number] 1 pill by mouth twice a day, for headache prevention/control VERAPAMIL HCL 75942133082 Active Alina Castaneda MD PhD Active ORPHENADRINE CITRATE ER 100 MG [id number] 1 every 12 hr. as needed ORPHENADRINE CITRATE 84770792859 No Longer Active Alina Castaneda MD PhD Active NIACIN CR 500 MG CR-TABS 2 qHS NIACIN 33665878181 No Longer Active Alina Castaneda MD PhD Active AMOXICILLIN 500 MG CAPS 2 po BID x 10 days AMOXICILLIN 23851229345 No Longer Active Alina Castaneda MD PhD Active HYDROCODONE-ACETAMINOPHEN 7.5-325 MG TABS 1 four times a day as needed for pain HYDROCODONE-ACETAMINOPHEN 46390396429 No Longer Active Alina Castaneda MD PhD Active METFORMIN HCL ER 500 MG [id number]-QEK Take three tablets by mouth everyday METFORMIN HCL 42234163693 Active Marvel MARROQUIN Active DOXEPIN HCL 10 MG CAPS Take 1 tablet by mouth daily DOXEPIN HCL 89461149527 No Longer Active Salina ROJAS Active NAVANE 10 MG CAPS 1/2 tablet twice a day THIOTHIXENE No Longer Active Salina ROJAS Active CYCLOBENZAPRINE HCL 10 MG TABS 1/2 tablet by mouth every 8 hours as needed for muscle spasms CYCLOBENZAPRINE HCL 99319454535 No Longer Active Alina Castaneda MD PhD Active BACTROBAN 2 % CREAM apply to ear and nose twice daily MUPIROCIN CALCIUM 15302994619 No Longer Active Alina Castaneda MD PhD Active HYDROCODONE-ACETAMINOPHEN 5-325 MG TABS take one tablet by mouth every four hours as needed for pain HYDROCODONE-ACETAMINOPHEN 51958418365 No Longer Active Alina Castaneda MD PhD Active ZOLPIDEM TARTRATE 10 MG TABS take at bedtime ZOLPIDEM TARTRATE 74703143699 Active Alina Castaneda MD PhD Active ZYPREXA 5 MG TABS take one tablet by mouth every evening OLANZAPINE 41439868964 No Longer Active Alina Castaneda MD PhD Active ALBUTEROL SULFATE 0.083 % NEBU SOLN one vial per nebulizer TID and PRN cough/ soa ALBUTEROL SULFATE 72625201411 No Longer Active Alina Castaneda MD PhD Active GUAIFENESIN 600 MG [id number]-YBH 1 tablet by mouth twice daily if needed for cough GUAIFENESIN 73571027548 No Longer Active Marvel MENDOZAP Active AZITHROMYCIN 500 MG SOLR 1 po q day AZITHROMYCIN 73000967973 No Longer Active Alina Castaneda MD PhD Active METOPROLOL SUCCINATE 100 MG IS92S-ZWX 1 by mouth daily for blood pressure METOPROLOL SUCCINATE 55035405640 Active Alina Castaneda MD PhD Active PROMETHAZINE-CODEINE 6.25-10 MG/5ML SYRP 1 tsp po q 6 hours prn cough PROMETHAZINE-CODEINE 81256553095 No Longer Active Alina Castaneda MD PhD Active CEFDINIR 300 MG CAPS by mouth twice a day CEFDINIR 98802504369 No Longer Active Alina Castaneda MD PhD Active METFORMIN HCL 500 MG MX25F-GBB Take 3 tablets by mouth everyday METFORMIN HCL 15869395598 No Longer Active Alina Castaneda MD PhD Active LEVEMIR 100 UNIT/ML SOLN 90 units SQ qHS INSULIN DETEMIR 76544959685 No Longer Active Marvel MARROQUIN Active TOPROL XL 100 MG [id number]-LRW 1 @ HS METOPROLOL SUCCINATE 14265723542 No Longer Active Marvel MARROQUIN Active ALLOPURINOL 300 MG TABS Take one by mouth daily ALLOPURINOL 79732171043 Active Alina Castaneda MD PhD Active ZYPREXA 10 MG TABS Take one by mouth daily OLANZAPINE 66367557715 No Longer Active Alina Castaneda MD PhD Active NOVOLOG 100 UNIT/ML SOLN 40 units with every meal INSULIN ASPART 74402522913 No Longer Active Alina Castaneda MD PhD Active VERAPAMIL HCL CR 120 MG TAB CR 1 qPM VERAPAMIL HCL 59217423214 No Longer Active Salina ROJAS Active ZYPREXA 15 MG TABS Take 1 tablet by mouth daily OLANZAPINE 72963988827 No Longer Active Marvel MARROQUIN Active LISINOPRIL 20 MG TABS 1 BID LISINOPRIL 46913817978 Active Alina Castaneda MD PhD Active ALBUTEROL SULFATE (2.5 MG/3ML) 0.083% NEBU 1 neb tid and prn cough ALBUTEROL SULFATE 46748962123 No Longer Active Alina Castaneda MD PhD Active FLUVOXAMINE MALEATE 100 MG TABS Take one (1) tablet by mouth am, 1/2 at noon, 1 pm FLUVOXAMINE MALEATE 58858682066 Active Alina Castaneda MD PhD Active TRAVATAN Z 0.004 % SOLN 1 gtt each eye daily TRAVOPROST 50669056156 Active CRYSTAL Suarez Active LANTUS 100 UNIT/ML SOLN 60 units sq q hs INSULIN GLARGINE 13825943055 No Longer Active CRYSTAL Suarez Active ALBUTEROL SULFATE (2.5 MG/3ML) 0.083% NEBU 1 neb tid and prn cough ALBUTEROL SULFATE (2.5 MG/3ML) 0.083% NEBU 832243 ALBUTEROL SULFATE Inactive ZYPREXA 15 MG TABS Take 1 tablet by mouth daily ZYPREXA 15 MG TABS 839400 OLANZAPINE Inactive VERAPAMIL HCL CR 120 MG TAB CR 1 qPM VERAPAMIL HCL CR 120 MG TAB CR VERAPAMIL HCL Inactive ZYPREXA 10 MG TABS Take one by mouth daily ZYPREXA 10 MG TABS 281783 OLANZAPINE Inactive TOPROL XL 100 MG [id number] 1 @ HS TOPROL XL 100 MG BF45V-ZOC METOPROLOL SUCCINATE Inactive LEVEMIR 100 UNIT/ML SOLN 90 units SQ qHS LEVEMIR 100 UNIT/ML SOLN INSULIN DETEMIR Inactive PROMETHAZINE-CODEINE 6.25-10 MG/5ML SYRP 1 tsp po q 6 hours prn cough PROMETHAZINE-CODEINE 6.25-10 MG/5ML SYRP 898421 PROMETHAZINE- CODEINE Inactive GUAIFENESIN 600 MG [id number] 1 tablet by mouth twice daily if needed for cough GUAIFENESIN 600 MG PU71N-SMT GUAIFENESIN Inactive ALBUTEROL SULFATE 0.083 % NEBU SOLN one vial per nebulizer TID and PRN cough/ soa ALBUTEROL SULFATE 0.083 % NEBU SOLN 120873 ALBUTEROL SULFATE Inactive ZYPREXA 5 MG TABS take one tablet by mouth every evening ZYPREXA 5 MG TABS 601995 OLANZAPINE Inactive HYDROCODONE-ACETAMINOPHEN 5-325 MG TABS take one tablet by mouth every four hours as needed for pain HYDROCODONE-ACETAMINOPHEN 5-325 MG TABS 003999 HYDROCODONE-ACETAMINOPHEN Inactive BACTROBAN 2 % CREAM apply to ear and nose twice daily BACTROBAN 2 % CREAM 363608 MUPIROCIN CALCIUM Inactive CYCLOBENZAPRINE HCL 10 MG TABS 1/2 tablet by mouth every 8 hours as needed for muscle spasms CYCLOBENZAPRINE HCL 10 MG TABS 015902 CYCLOBENZAPRINE HCL Inactive NAVANE 10 MG CAPS 1/2 tablet twice a day NAVANE 10 MG CAPS THIOTHIXENE Inactive DOXEPIN HCL 10 MG CAPS Take 1 tablet by mouth daily DOXEPIN HCL 10 MG CAPS 2366613 DOXEPIN HCL Inactive HYDROCODONE-ACETAMINOPHEN 7.5-325 MG TABS 1 four times a day as needed for pain HYDROCODONE-ACETAMINOPHEN 7.5-325 MG TABS 080238 HYDROCODONE-ACETAMINOPHEN Inactive NIACIN CR 500 MG CR-TABS 2 qHS NIACIN CR 500 MG CR- TABS NIACIN Inactive ORPHENADRINE CITRATE ER 100 MG [id number] 1 every 12 hr. as needed ORPHENADRINE CITRATE ER 100 MG [id number] ORPHENADRINE CITRATE Inactive ACETAMINOPHEN 500 MG TABS 2 Q 6 hr. PRN ACETAMINOPHEN 500 MG TABS 483823 ACETAMINOPHEN Inactive SAPHRIS 5 MG SUBL by mouth twice a day SAPHRIS 5 MG SUBL ASENAPINE MALEATE Inactive NIACIN ER 500 MG CR-TABS 4 qHS (for triglycerides) NIACIN ER 500 MG CR-TABS NIACIN Inactive IBUPROFEN 200 MG TABS 1 Q 6 hr. PRN IBUPROFEN 200 MG TABS 876552 IBUPROFEN Inactive FLUTICASONE PROPIONATE 50 MCG/ACT SUSP 2 sprays each nostril qDay x 30 days FLUTICASONE PROPIONATE 50 MCG/ACT SUSP 671154 FLUTICASONE PROPIONATE Inactive EQL TRUETEST TEST STRP Test blood sugar TID EQL TRUETEST TEST STRP GLUCOSE BLOOD Inactive TERESE CONTOUR TEST STRP monitor blood sugars 3x/day TERESE CONTOUR TEST STRP GLUCOSE BLOOD Inactive DETROL LA 4 MG [id number] Take 1 tablet by mouth daily DETROL LA 4 MG [id number]-BUX TOLTERODINE TARTRATE Inactive ZYPREXA 7.5 MG TABS 1 at HS ZYPREXA 7.5 MG TABS 681508 OLANZAPINE Inactive THIOTHIXENE 5 MG CAPS by mouth twice a day THIOTHIXENE 5 MG CAPS 459479 THIOTHIXENE Inactive UROXATRAL 10 MG CZ80M-VIG Take 1 tablet by mouth daily UROXATRAL 10 MG GT44T-LEH ALFUZOSIN HCL Inactive ACYCLOVIR 400 MG ORAL TABS 1 pill three times daily x 5 days, for cold sore outbreak ACYCLOVIR 400 MG ORAL TABS 965547 ACYCLOVIR Inactive CEFDINIR 300 MG CAPS by mouth twice a day CEFDINIR 300 MG CAPS 723909 CEFDINIR Inactive AZITHROMYCIN 500 MG SOLR 1 po q day AZITHROMYCIN 500 MG SOLR 623906 AZITHROMYCIN Inactive AMOXICILLIN 500 MG CAPS 2 po BID x 10 days AMOXICILLIN 500 MG CAPS 214278 AMOXICILLIN Inactive PENICILLIN V POTASSIUM 500 MG TABS 1 pill by mouth three times daily PENICILLIN V POTASSIUM 500 MG TABS 829461 PENICILLIN V POTASSIUM Inactive Immunizations Vaccine Administration [...] Fluvirin, Fluarix, Agriflu(>=18 yo)) Fluzone (>3 yrs.) [FTQ272] Influenza, seasonal, injectable pneumococcal immunization administered Pneumovax [...] HGBA1C - Chemistry sodium, serum 130 mmol/L 683-949 7025/06/09 potassium, serum 4.0 mmol/L 3.5-5.2 chloride, serum 92 mmol/L 98-107 carbon dioxide, venous blood 22.1 mmol/L 21.0-32.0 blood glucose 60 mg/dL 65-110 calcium, serum 9.5 mg/dL 8.5-10.1 urea nitrogen, blood 14 mg/dL 7-18 creatinine, serum 1.30 mg/dL 0.60-1.30 hemoglobin A1C, blood, as % of total hemoglobin 6.0 % 4.3-6.0 sodium, serum 131 mmol/L 883-215 1468/12/30 potassium, serum 5.0 mmol/L 3.5-5.2 chloride, serum [...] 6.0 mg/dL 2.6-7.2 sodium, serum 130 mmol/L 241-812 7639/05/01 potassium, serum 5.2 mmol/L 3.5-5.2 chloride, serum [...] 0.40 mg/dL 0.00-1.00 cholesterol, serum 151 mg/dL 032-282 9184/05/01 triglyceride, serum, fasting 356 mg/dL 30-200 HDL cholesterol, serum 19 mg/dL 32-96 LDL cholesterol, serum 61 mg/dL 0-130 TSH 2.22 m[iU]/mL 0.36-3.74 prostate specific antigen 0.11 ng/mL 0.00-4.00 Lab Report: CBC, CMP, Lipid Panel, TSH, PSA, microalbumin, uric acid - Hematology erythrocyte (RBC) count 5.07 10^6/MM^3 10*6/mm3 4.69-6.13 hemoglobin, blood 15.3 g/dL 13.5-17.5 hematocrit, blood 44.2 % 41.0-53.0 mean corpuscular volume, RBC 87 fL 80-97 mean corpuscular hemoglobin, RBC 30.1 pg 27.0-31.2 mean corpuscular hemoglobin concentration, RBC 34.5 G/DL % 31.8- 35.4 red blood cell distribution width 15.0 % 11.6-14.8 platelet count 304 10^3/MM^3 10*3/mm3 013-597 0212/05/01 leukocyte count, blood 7.8 10^3/MM^3 10*3/mm3 4.6-10.2 Lab Report: CBC, CMP, Lipid Panel, TSH, PSA, microalbumin, uric acid - Lab microalbumin, urine 10 0-19 Lab Report: Comp. Metabolic Panel - Chemistry sodium, serum 127 mmol/L 305-683 6464/10/27 potassium, serum 4.1 mmol/L 3.5-5.2 chloride, serum [...] HGBA1C - Chemistry sodium, serum 126 mmol/L 106-268 3911/02/26 potassium, serum 4.8 mmol/L 3.5-5.2 chloride, serum [...] 35 mg/dL LDL target level 100 mg/dL LDL target level 100 mg/dL HDL cholesterol, [...] mg/dL Encounters Code Encounter Date Provider Facility CPT-67971 Level 3 Est. Patient 14:36:26 HAND II TUBE BENDER Marvel Araceli [facility]-49517 Level 3 Est. Patient 13:34:47 HAND II TUBE BENDER Alina Castaneda MD [facility]-52366 Level 3 Est. Patient 19:52:08 HAND II TUBE BENDER Alina Castaneda MD [facility]95493 Level 3 Est. Patient 10:01:51 [facility]-62418 Level 3 Est. Patient 21:54:06 CDT Vanessa Hickey MD [facility]-62376 Level 3 Est. Patient 08:54:46 CDT Alina Castaneda MD [facility]-32334 Level 3 Est. [facility]32[facility] Est[facility] Patient 12:02:49 CDT Alina Castaneda MD [facility]92141 Level 3 Est. Patient 19:17:33 CDT Alina Castaneda MD [facility]-77934 Level 3 Est. Patient 13:19:10 CDT Marvel Charles [facility]-57682 Level 3 Est. Patient 08:20:05 CDT Alina Castaneda MD [facility]-62754 Level 3 Est. Patient 15:17:18 CDT Alina Castaneda MD [facility]07419 Level 3 Est. Patient 14:25:36 [facility]-33071 Level 3 Est. Patient 10:09:15 HAND II TUBE BENDER Marvel Thurstonestela [facility]-89293 Level 3 Est. Patient 21:28:43 CDT Alina Castaneda MD [facility]-83160 Level 3 Est. Patient 15:20:11 [facility]-84835 Level 4 Est. Patient 19:08:12 CDT Alina Castaneda MD [facility]-57166 Level 3 Est. Patient 15:06:39 CDT Marvel Thurstonestela [facility]-04979 Level 4 Est. Patient 17:48:15 CDT Alina Castaneda MD [facility]-88810 Level 3 Est. Patient 14:53:49 CDT Alina Castaneda MD [facility]-38841 Level 3 Est. Patient 09:35:16 CDT Alina Castaneda MD [facility]-87395 Level 3 Est. Patient 12:23:22 CDT Alina Castaneda MD [facility]-98363 Level 3 Est. Patient 16:19:15 CDT Alina Castaneda MD [facility]-18844 Level 3 Est. Patient 21:39:56 HAND II TUBE BENDER Alina Castaneda MD [facility]-28097 Level 4 Est. Patient 14:12:56 HAND II TUBE BENDER Alina Castaneda MD [facility]-64493 Level 2 Est. Patient 15:34:57 HAND II TUBE BENDER Alina Castaneda MD [facility]-77425 Level 3 Est. Patient 12:17:04 HAND II TUBE BENDER Alina Castaneda MD [facility]-63405 Level 3 Est. Patient 09:18:18 HAND II TUBE BENDER Brooksjohn Charles [facility]-01796 Level 2 Est. Patient 21:50:24 CDT Alina Castaneda MD [facility]-10739 Level 3 Est. Patient 09:17:28 CDT Marvel Charles [facility]-65031 Level 4 Est. Patient 18:54:02 CDT Alina Castaneda MD [facility]33099 Level 3 Est. Patient 10:47:10 CDT Alina Castaneda MD [facility]31222 Level 3 Est. Patient 09:22:20 CDT Marvel Charles [facility]-57201 Level 3 Est. Patient 16:39:43 CDT Marvel Chalres [facility]-27798 Level 3 Est. Patient 16:05:16 CDT Alina Castaneda MD [facility]-51726 Level 3 Est. Patient 00:29:15 CDT Alina Castaneda MD [facility]82591 Level 3 Est. Patient 10:49:22 HAND II TUBE BENDER Marvel Charles [facility]-06298 Level 3 Est. Patient 21:30:19 HAND II TUBE BENDER Alina Castaneda MD [facility]-63581 Level 4 Est. Patient 17:04:11 HAND II TUBE BENDER Marvel Charles [facility]-48766 Level 3 Est. Patient 15:34:11 HAND II TUBE BENDER Marvel Charles [facility]-60221 Level 2 Est. Patient 12:51:58 HAND II TUBE BENDER Alina Castaneda MD [facility]72115 Level 3 Est. Patient 13:20:01 HAND II TUBE BENDER Alina Castaneda MD PhD [facility] CPT-74895 Level 3 Est. Patient 09:23:35 CDT Alina Castaneda MD PhD [facility] Procedures Code Procedure Name Date Entry Date Standard Description CPT-27648 Bladder Scan 21:54:06 CDT CPT-G0008 Administration of Influenza Virus Vaccine 13:05:26 CDT CPT-39926 Fluzone Quadrivalent Intramuscular Suspension 0.5 ML 13: 05:26 CDT CPT-37444 Administration single or combination vaccine inc oral 11 :49:51 CDT CPT-20148 Pneumovax 11:49:51 CDT CPT-47910 Ribs unilateral 2V 12:37:22 HAND II TUBE BENDER CPT-63034 Chest 2V Frontal and Lat 17:15:26 CDT CPT-74354 Abx/Therapy Injection 18:54:02 CDT CPT-J0696 Rocephin 1000 mg (Ceftriaxone) 16:00:32 CDT CPT-68770 Chest 2V Frontal and Lat 15:26:45 CDT CPT-38368 Chest 2V Frontal and Lat 10:23:27 CDT CPT-48385 Venipuncture Draw Fee 10:11:00 CDT CPT-65936 Administration single or combination vaccine inc oral 11 :56:38 CDT CPT-15343 Influenza split virus > age 3 11:56:38 CDT CPT-24379 Venipuncture Draw Fee 08:49:54 HAND II TUBE BENDER CPT-38242 EKG Trac and Interp 17:54:19 HAND II TUBE BENDER
--- OUTSIDE RECORDS SUMMARY | 2018-07-02 19:51 | XMS REPORT | Clinical Summary ---
Author Author Admin, TERELL Organization [facility] Address Unknown Phone Allergies, Adverse Reactions, Alerts [...] Gout, unspecified FH STROKE V17.1 Resolved Marvel MARROQIUN Family history of stroke (cerebrovascular) FATIGUE 780.79 [...] with lunch and suppetr. INSULIN LISPRO (HUMAN) 62555580703 Active Marvel Mackenzieglestela DIAMOND EXPERT Active LEVEMIR 100 UNIT/ML SOLN Take 80 u at 7-8pm INSULIN DETEMIR 99018075738 Active Marvel Mackenzieglestela DIAMOND EXPERT Active BD INSULIN SYRINGE 28G X 1/2" 1 ML MISC 1 four times per day INSULIN SYRINGE-NEEDLE U-100 68999491422 Active Alina Castaneda MD PhD Active CYCLOBENZAPRINE HCL 10 MG TABS 1 tablet by mouth three times daily, scheduled CYCLOBENZAPRINE HCL 30781238358 Active Alina Castaneda MD PhD Active TOLTERODINE TARTRATE 2 MG TABS 1 pill twice daily, for bladder TOLTERODINE TARTRATE 43884656757 Active Alina Castaneda MD PhD Active DETROL LA 4 MG [id number]-LAO Take 1 tablet by mouth daily TOLTERODINE TARTRATE 60272033900 No Longer Active Alina Castaneda MD PhD Active HYDROCODONE-ACETAMINOPHEN 5-325 MG TABS 2 tabs by mouth three times daily as needed for pain HYDROCODONE-ACETAMINOPHEN 75044693844 Active Alina Castaneda MD PhD Active TERESE CONTOUR TEST STRP monitor blood sugars 3x/day GLUCOSE BLOOD 91712752600 No Longer Active Alina Castaneda MD PhD Active EQL TRUETEST TEST STRP Test blood sugar TID GLUCOSE BLOOD 08544812586 No Longer Active Alina Castaneda MD PhD Active FLUTICASONE PROPIONATE 50 MCG/ACT SUSP 2 sprays each nostril qDay x 30 days FLUTICASONE PROPIONATE 64370556055 No Longer Active Alina Castaneda MD PhD Active IBUPROFEN 200 MG TABS 1 Q 6 hr. PRN IBUPROFEN 54247743834 No Longer Active Alina Castaneda MD PhD Active NIACIN ER 500 MG CR-TABS 4 qHS (for triglycerides) NIACIN 39833166833 No Longer Active Alina Castaneda MD PhD Active TRUETEST TEST STRP check sugars 4x/day GLUCOSE BLOOD 21733995374 Active Alina Castaneda MD PhD Active ALFUZOSIN HCL ER 10 MG [id number] 1 tablet daily ALFUZOSIN HCL 62923131116 Active Vanessa Hickey MD Active CLONAZEPAM 1 MG TABS 1 pill by mouth three times daily CLONAZEPAM 81052619293 Active Alina Castaneda MD PhD Active LOVAZA 1 GM CAPS 4 daily (for triglycerides) [id number] ETHYL ESTERS 15585880695 Active Alina Castaneda MD PhD Active SAPHRIS 5 MG SUBL by mouth twice a day ASENAPINE MALEATE 33166882831 No Longer Active Marvel MARROQUIN Active ACETAMINOPHEN 500 MG TABS 2 Q 6 hr. PRN ACETAMINOPHEN 96752469956 No Longer Active Mallashondanivia Ziglari DIAMOND EXPERT Active VERAPAMIL HCL ER 120 MG [id number]-UKA 1 pill by mouth twice a day, for headache prevention/control VERAPAMIL HCL 62739685920 Active Alina Castaneda MD PhD Active ORPHENADRINE CITRATE ER 100 MG FK23D-LFC 1 every 12 hr. as needed ORPHENADRINE CITRATE 41764648070 No Longer Active Alina Castaneda MD PhD Active NIACIN CR 500 MG CR-TABS 2 qHS NIACIN 69341982813 No Longer Active Alina Castaneda MD PhD Active AMOXICILLIN 500 MG CAPS 2 po BID x 10 days AMOXICILLIN 04509741207 No Longer Active Alina Castaneda MD PhD Active ZYPREXA 7.5 MG TABS 1 at HS OLANZAPINE 60236920326 Active Alina Castaneda MD PhD Active THIOTHIXENE 5 MG CAPS by mouth twice a day THIOTHIXENE 47219983207 Active Alina Castaneda MD PhD Active HYDROCODONE-ACETAMINOPHEN 7.5-325 MG TABS 1 four times a day as needed for pain HYDROCODONE-ACETAMINOPHEN 92820063449 No Longer Active Alina Castaneda MD PhD Active METFORMIN HCL ER 500 MG TP16H-LES Take three tablets by mouth everyday METFORMIN HCL 27131764171 Active Alina Castaneda MD PhD Active DOXEPIN HCL 10 MG CAPS Take 1 tablet by mouth daily DOXEPIN HCL 58371231635 No Longer Active Salina ROJAS Active NAVANE 10 MG CAPS 1/2 tablet twice a day THIOTHIXENE No Longer Active Salina ROBBINSA Active CYCLOBENZAPRINE HCL 10 MG TABS 1/2 tablet by mouth every 8 hours as needed for muscle spasms CYCLOBENZAPRINE HCL 14078546020 No Longer Active Alina Castaneda MD PhD Active BACTROBAN 2 % CREAM apply to ear and nose twice daily MUPIROCIN CALCIUM 49731595404 No Longer Active Alina aCstaneda MD PhD Active HYDROCODONE-ACETAMINOPHEN 5-325 MG TABS take one tablet by mouth every four hours as needed for pain HYDROCODONE-ACETAMINOPHEN 08476979694 No Longer Active Alina Castaneda MD PhD Active ZOLPIDEM TARTRATE 10 MG TABS take at bedtime ZOLPIDEM TARTRATE 07497890880 Active Alina Castaneda MD PhD Active ZYPREXA 5 MG TABS take one tablet by mouth every evening OLANZAPINE 69205720817 No Longer Active Alina Castaneda MD PhD Active ALBUTEROL SULFATE 0.083 % NEBU SOLN one vial per nebulizer TID and PRN cough/ soa ALBUTEROL SULFATE 97809771442 No Longer Active Alina Castaneda MD PhD Active GUAIFENESIN 600 MG RK38I-RMF 1 tablet by mouth twice daily if needed for cough GUAIFENESIN 59497343898 No Longer Active Marvel MENDOZAP Active AZITHROMYCIN 500 MG SOLR 1 po q day AZITHROMYCIN 75968027994 No Longer Active Alina Castaneda MD PhD Active METOPROLOL SUCCINATE 100 MG [id number]-VGV 1 by mouth daily for blood pressure METOPROLOL SUCCINATE 90118089737 Active Alina Castaneda MD PhD Active PROMETHAZINE-CODEINE 6.25-10 MG/5ML SYRP 1 tsp po q 6 hours prn cough PROMETHAZINE-CODEINE 79539748466 No Longer Active Alina Castaneda MD PhD Active CEFDINIR 300 MG CAPS by mouth twice a day CEFDINIR 11839526464 No Longer Active Alina Castaneda MD PhD Active METFORMIN HCL 500 MG KO40J-GWL Take 3 tablets by mouth everyday METFORMIN HCL 67641509207 No Longer Active Alina Castaneda MD PhD Active LEVEMIR 100 UNIT/ML SOLN 90 units SQ qHS INSULIN DETEMIR 59301453848 No Longer Active Marvel MARROQUIN Active TOPROL XL 100 MG GI97Y-SNM 1 @ HS METOPROLOL SUCCINATE 87726633504 No Longer Active Marvel MARROQUIN Active ALLOPURINOL 300 MG TABS Take one by mouth daily ALLOPURINOL 51436756306 Active Alina Castaneda MD PhD Active ZYPREXA 10 MG TABS Take one by mouth daily OLANZAPINE 61061240250 No Longer Active Alina Castaneda MD PhD Active NOVOLOG 100 UNIT/ML SOLN 40 units with every meal INSULIN ASPART 57206465531 No Longer Active Alina Castaneda MD PhD Active VERAPAMIL HCL CR 120 MG TAB CR 1 qPM VERAPAMIL HCL 74838555107 No Longer Active Salina Emely [facility] Active ZYPREXA 15 MG TABS Take 1 tablet by mouth daily OLANZAPINE 48725347982 No Longer Active Marvel MARROQUIN Active LISINOPRIL 20 MG TABS 1 BID LISINOPRIL 20899211153 Active Mao Rodriguez MD Active ALBUTEROL SULFATE (2.5 MG/3ML) 0.083% NEBU 1 neb tid and prn cough ALBUTEROL SULFATE 02835067032 No Longer Active Alina Castaneda MD PhD Active FLUVOXAMINE MALEATE 100 MG TABS Take one (1) tablet by mouth am, 1/2 at noon, 1 pm FLUVOXAMINE MALEATE 27233160762 Active Alina Castaneda MD PhD Active TRAVATAN Z 0.004 % SOLN 1 gtt each eye daily TRAVOPROST 38715385318 Active Alina Mendez Active LANTUS 100 UNIT/ML SOLN 60 units sq q hs INSULIN GLARGINE 65870080873 No Longer Active Alina Mendez Active UROXATRAL 10 MG RS87M-HFC Take 1 tablet by mouth daily ALFUZOSIN HCL 59402899221 Active Tanya MARROQUIN Active ALBUTEROL SULFATE (2.5 MG/3ML) 0.083% NEBU 1 neb tid and prn cough ALBUTEROL SULFATE (2.5 MG/3ML) 0.083% NEBU 313686 ALBUTEROL SULFATE Inactive ZYPREXA 15 MG TABS Take 1 tablet by mouth daily ZYPREXA 15 MG TABS 791113 OLANZAPINE Inactive VERAPAMIL HCL CR 120 MG TAB CR 1 qPM VERAPAMIL HCL CR 120 MG TAB CR VERAPAMIL HCL Inactive ZYPREXA 10 MG TABS Take one by mouth daily ZYPREXA 10 MG TABS 979396 OLANZAPINE Inactive TOPROL XL 100 MG [id number] 1 @ HS TOPROL XL 100 MG NM89P-AOE METOPROLOL SUCCINATE Inactive LEVEMIR 100 UNIT/ML SOLN 90 units SQ qHS LEVEMIR 100 UNIT/ML SOLN INSULIN DETEMIR Inactive PROMETHAZINE-CODEINE 6.25-10 MG/5ML SYRP 1 tsp po q 6 hours prn cough PROMETHAZINE-CODEINE 6.25-10 MG/5ML SYRP 407017 PROMETHAZINE- CODEINE Inactive GUAIFENESIN 600 MG XY13T-ZSB 1 tablet by mouth twice daily if needed for cough GUAIFENESIN 600 MG AS40R-DZC GUAIFENESIN Inactive ALBUTEROL SULFATE 0.083 % NEBU SOLN one vial per nebulizer TID and PRN cough/ soa ALBUTEROL SULFATE 0.083 % NEBU SOLN 282297 ALBUTEROL SULFATE Inactive ZYPREXA 5 MG TABS take one tablet by mouth every evening ZYPREXA 5 MG TABS 282018 OLANZAPINE Inactive HYDROCODONE-ACETAMINOPHEN 5-325 MG TABS take one tablet by mouth every four hours as needed for pain HYDROCODONE-ACETAMINOPHEN 5-325 MG TABS 200051 HYDROCODONE-ACETAMINOPHEN Inactive BACTROBAN 2 % CREAM apply to ear and nose twice daily BACTROBAN 2 % CREAM 356532 MUPIROCIN CALCIUM Inactive CYCLOBENZAPRINE HCL 10 MG TABS 1/2 tablet by mouth every 8 hours as needed for muscle spasms CYCLOBENZAPRINE HCL 10 MG TABS 943679 CYCLOBENZAPRINE HCL Inactive NAVANE 10 MG CAPS 1/2 tablet twice a day NAVANE 10 MG CAPS THIOTHIXENE Inactive DOXEPIN HCL 10 MG CAPS Take 1 tablet by mouth daily DOXEPIN HCL 10 MG CAPS 9037070 DOXEPIN HCL Inactive HYDROCODONE-ACETAMINOPHEN 7.5-325 MG TABS 1 four times a day as needed for pain HYDROCODONE-ACETAMINOPHEN 7.5-325 MG TABS 994637 HYDROCODONE-ACETAMINOPHEN Inactive NIACIN CR 500 MG CR-TABS 2 qHS NIACIN CR 500 MG CR- TABS NIACIN Inactive ORPHENADRINE CITRATE ER 100 MG EM68A-UZE 1 every 12 hr. as needed ORPHENADRINE CITRATE ER 100 MG UA99C-GAR ORPHENADRINE CITRATE Inactive ACETAMINOPHEN 500 MG TABS 2 Q 6 hr. PRN ACETAMINOPHEN 500 MG TABS 744514 ACETAMINOPHEN Inactive SAPHRIS 5 MG SUBL by mouth twice a day SAPHRIS 5 MG SUBL ASENAPINE MALEATE Inactive NIACIN ER 500 MG CR-TABS 4 qHS (for triglycerides) NIACIN ER 500 MG CR-TABS NIACIN Inactive IBUPROFEN 200 MG TABS 1 Q 6 hr. PRN IBUPROFEN 200 MG TABS 951521 IBUPROFEN Inactive FLUTICASONE PROPIONATE 50 MCG/ACT SUSP 2 sprays each nostril qDay x 30 days FLUTICASONE PROPIONATE 50 MCG/ACT SUSP 221659 FLUTICASONE PROPIONATE Inactive EQL TRUETEST TEST STRP Test blood sugar TID EQL TRUETEST TEST STRP GLUCOSE BLOOD Inactive TERESE CONTOUR TEST STRP monitor blood sugars 3x/day TERESE CONTOUR TEST STRP GLUCOSE BLOOD Inactive DETROL LA 4 MG QV91R-ACE Take 1 tablet by mouth daily DETROL LA 4 MG QA99T-QWL TOLTERODINE TARTRATE Inactive CEFDINIR 300 MG CAPS by mouth twice a day CEFDINIR 300 MG CAPS 439996 CEFDINIR Inactive AZITHROMYCIN 500 MG SOLR 1 po q day AZITHROMYCIN 500 MG SOLR 445587 AZITHROMYCIN Inactive AMOXICILLIN 500 MG CAPS 2 po BID x 10 days AMOXICILLIN 500 MG CAPS 474806 AMOXICILLIN Inactive Immunizations Vaccine Administration Date Value [...] Fluvirin, Fluarix, Agriflu(>=18 yo)) Fluzone (>3 yrs.) [NQT613] Influenza, seasonal, injectable pneumococcal immunization administered Pneumovax [...] HGBA1C - Chemistry sodium, serum 130 mmol/L 451-245 7707/06/09 potassium, serum 4.0 mmol/L 3.5-5.2 chloride, serum [...] acid - Chemistry sodium, serum 130 mmol/L 164-650 1759/05/01 potassium, serum 5.2 mmol/L 3.5-5.2 chloride, serum [...] 0.40 mg/dL 0.00-1.00 cholesterol, serum 151 mg/dL 707-344 2766/05/01 triglyceride, serum, fasting 356 mg/dL 30-200 HDL [...] HGBA1C - Chemistry sodium, serum 126 mmol/L 924-597 9902/02/26 potassium, serum 4.8 mmol/L 3.5-5.2 chloride, serum [...] DIRECT - Chemistry cholesterol, serum 158 mg/dL 039-108 5485/07/11 triglyceride, serum, fasting 489 mg/dL 30-200 HDL [...] mg/dL Encounters Code Encounter Date Provider Facility CPT-72164 Level 3 Est. Patient 13:19:10 CDT [facility] CPT-26461 Level 3 Est. Patient 08:20:05 CDT Alina Castaneda MD [facility] CPT-35394 Level 3 Est. Patient 15:17:18 CDT Alina Castaneda MD PhD [facility] CPT-53226 Level 3 Est. Patient 14:25:36 CENTRAL OFFICE TECHNICIAN [facility] CPT-31900 Level 3 Est. Patient 10:09:15 CENTRAL OFFICE TECHNICIAN [facility] CPT-16784 Level 3 Est. Patient 21:28:43 CDT Alina Castaneda MD PhD [facility] CPT-43962 Level 3 Est. Patient 15:20:11 CDT Marvel Charles [facility] CPT-69466 Level 4 Est. Patient 19:08:12 CDT Alina Castaneda MD [facility]-06753 Level 3 Est. Patient 15:06:[address] [facility] Shorenivia Charles Formerly named [facility]-85601 Level 4 Est. Patient 17:48:15 CDT Alina Castaneda MD [facility]-41290 Level 3 Est. Patient 14:53:49 CDT Alina Castaneda MD [facility]-07572 Level 3 Est. Patient 09:35:16 CDT Alina Castaneda MD [facility]-03052 Level 3 Est. Patient 12:23:22 CDT Alina Castaneda MD [facility]-68870 Level 3 Est. Patient 16:19:15 CDT Alina Castaneda MD [facility]-04758 Level 3 Est. Patient 21:39:56 CENTRAL OFFICE TECHNICIAN Alina Castaneda MD [facility]-67943 Level 4 Est. Patient 14:12:56 CENTRAL OFFICE TECHNICIAN Alina Castaneda MD [facility]-56582 Level 2 Est. Patient 15:34:57 CENTRAL OFFICE TECHNICIAN Alina Castaneda MD [facility]-09273 Level 3 Est. Patient 12:17:04 CENTRAL OFFICE TECHNICIAN Alina Castaneda MD [facility]-84263 Level 3 Est. Patient 09:18:18 CENTRAL OFFICE TECHNICIAN Marvel Charles [facility]-34514 Level 2 Est. Patient 21:50:24 CDT Alina Castaneda MD [facility]-71033 Level 3 Est. Patient 09:17:28 CDT Marvel Araceli [facility] CPT-87229 Level 4 Est. Patient 18:54:02 CDT Alina Castaneda MD [facility] CPT-73957 Level 3 Est. Patient 10:47:10 CDT Alina Castaneda MD [facility] CPT-92776 Level 3 Est. Patient 09:22:20 CDT Marvel Thurstonestela [facility] CPT-56540 Level 3 Est. Patient 16:39:43 CDT Marvel Thurstonestela [facility] CPT-12366 Level 3 Est. Patient 16:05:16 CDT Alina Castaneda MD [facility] CPT-72342 Level 3 Est. Patient 00:29:15 CDT Alina Castaneda MD [facility] CPT-66320 Level 3 Est. Patient 10:49:22 CENTRAL OFFICE TECHNICIAN Brookslashondanivia Araceli [facility] CPT-57992 Level 3 Est. Patient 21:30:19 CENTRAL OFFICE TECHNICIAN Alina Castaneda MD [facility] CPT-68566 Level 4 Est. Patient 17:04:11 CENTRAL OFFICE TECHNICIAN Marvel Araceli [facility] CPT-29125 Level 3 Est. Patient 15:34:11 CENTRAL OFFICE TECHNICIAN Brooksjohn Charles [facility] CPT-00385 Level 2 Est. Patient 12:51:58 CENTRAL OFFICE TECHNICIAN Alina Castaneda MD [facility] CPT-26632 Level 3 Est. Patient 13:20:01 CENTRAL OFFICE TECHNICIAN Alina Castaneda MD [facility] CPT-70490 Level 3 Est. Patient 09:23:35 CDT Alina Castaneda MD [facility] Procedures Code Procedure Name Date Entry Date Standard Description CPT-12408 Administration single or combination vaccine inc oral 11 :49:51 CDT CPT-12199 Pneumovax 11:49:51 CDT CPT-85333 Ribs unilateral 2V 12:37:22 CENTRAL OFFICE TECHNICIAN CPT-54592 Chest 2V Frontal and Lat 17:15:26 CDT CPT-14981 Abx/Therapy Injection 18:54:02 CDT CPT-J0696 Rocephin 1000 mg (Ceftriaxone) 16:00:32 CDT CPT-58545 Chest 2V Frontal and Lat 15:26:45 CDT CPT-63508 Chest 2V Frontal and Lat 10:23:27 CDT CPT-87190 Venipuncture Draw Fee 10:11:00 CDT CPT-86760 Administration single or combination vaccine inc oral 11 :56:38 CDT CPT-60557 Influenza split virus > age 3 11:56:38 CDT CPT-87815 Venipuncture Draw Fee 08:49:54 CENTRAL OFFICE TECHNICIAN CPT-33557 EKG Trac and Interp 17:54:19 CENTRAL OFFICE TECHNICIAN
--- OUTSIDE RECORDS SUMMARY | 2018-07-02 19:53 | XMS REPORT | Clinical Summary ---
Author Author Admin, TERELL Organization 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 Active Alina Castaneda MD PhD Recurrent isolated sleep paralysis SPECIAL SCREENING FOR MALIGNANT NEOPLASM OF PROSTATE V76.44 Resolved Alina Castaneda MD PhD Screening for malignant neoplasms of prostate Hypoglycemia 251.2 Active Zaineh 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 LOPEZ Hypoglycemia, unspecified Diabetes mellitus, type II 250.00 Active Maliheh Ziglari BIRD RAISER Diabetes mellitus without mention of complication, type [...] by mouth nightly, for pain MORPHINE SULFATE 59926541237 Active Rhett Luther DO Active LATUDA 80 MG TABS 1 tab by mouth every evening LURASIDONE HCL 37988805662 Active Alina Castaneda MD PhD Active UROXATRAL 10 MG [id number] Take 1 tablet by mouth daily ALFUZOSIN HCL 05597733516 No Longer Active Alina Castaneda MD PhD Active THIOTHIXENE 5 MG CAPS by mouth twice a day THIOTHIXENE 59179951386 No Longer Active Alina Castaneda MD PhD Active ZYPREXA 7.5 MG TABS 1 at HS OLANZAPINE 18843467111 No Longer Active Alina Castaneda MD PhD Active HUMALOG 100 UNIT/ML SOLN Take 20 units with breakfast, 10u with lunch and suppetr. INSULIN LISPRO (HUMAN) 40093486438 Active Maliheh Ziglari BIRD RAISER Active LEVEMIR 100 UNIT/ML SOLN Take 70 u at 7-8pm INSULIN DETEMIR 06835228382 Active Maliheh Ziglari BIRD RAISER Active BD INSULIN SYRINGE 28G X 1/2" 1 ML MISC 1 four times per day INSULIN SYRINGE-NEEDLE U-100 89233877243 Active Maliheh Ziglari BIRD RAISER Active CYCLOBENZAPRINE HCL 10 MG TABS 1 tablet by mouth three times daily, scheduled CYCLOBENZAPRINE HCL 14658720428 Active Alina Castaneda MD PhD Active TOLTERODINE TARTRATE 2 MG TABS 1 pill twice daily, for bladder TOLTERODINE TARTRATE 22203125509 Active Alina Castaneda MD PhD Active DETROL LA 4 MG [id number] Take 1 tablet by mouth daily TOLTERODINE TARTRATE 48682668113 No Longer Active Alina Castaneda MD PhD Active HYDROCODONE-ACETAMINOPHEN 5-325 MG TABS 2 tabs by mouth three times daily as needed for pain HYDROCODONE-ACETAMINOPHEN 90209592401 Active Rhett W Ashkan DO Active TERESE CONTOUR TEST STRP monitor blood sugars 3x/day GLUCOSE BLOOD 11532212767 No Longer Active Alina Castaneda MD PhD Active EQL TRUETEST TEST STRP Test blood sugar TID GLUCOSE BLOOD 09471774350 No Longer Active Alina Castaneda MD PhD Active FLUTICASONE PROPIONATE 50 MCG/ACT SUSP 2 sprays each nostril qDay x 30 days FLUTICASONE PROPIONATE 38685196507 No Longer Active Alina Castaneda MD PhD Active IBUPROFEN 200 MG TABS 1 Q 6 hr. PRN IBUPROFEN 37534045425 No Longer Active Alina Castaneda MD PhD Active NIACIN ER 500 MG CR-TABS 4 qHS (for triglycerides) NIACIN 68439254875 No Longer Active Alina Castaneda MD PhD Active TRUETEST TEST STRP check sugars 4x/day GLUCOSE BLOOD 59721916573 Active Marvel MARROQUIN Active ALFUZOSIN HCL ER 10 MG [id number] 1 tablet daily ALFUZOSIN HCL 89902005665 Active Vanessa Hickey MD Active CLONAZEPAM 1 MG TABS 1 pill by mouth three times daily CLONAZEPAM 37048516535 Active Alina Castaneda MD PhD Active LOVAZA 1 GM CAPS 4 daily (for triglycerides) [id number] ETHYL ESTERS 93311585733 Active Alina Castaneda MD PhD Active SAPHRIS 5 MG SUBL by mouth twice a day ASENAPINE MALEATE 26216253858 No Longer Active Marvel MENDOZAP Active ACETAMINOPHEN 500 MG TABS 2 Q 6 hr. PRN ACETAMINOPHEN 18263616701 No Longer Active Marvel MENDOZAP Active VERAPAMIL HCL ER 120 MG [id number] 1 pill by mouth twice a day, for headache prevention/control VERAPAMIL HCL 86290199152 Active Alina Castaneda MD PhD Active ORPHENADRINE CITRATE ER 100 MG [id number] 1 every 12 hr. as needed ORPHENADRINE CITRATE 48111649852 No Longer Active Alina Castaneda MD PhD Active NIACIN CR 500 MG CR-TABS 2 qHS NIACIN 09330148442 No Longer Active Alina Castaneda MD PhD Active AMOXICILLIN 500 MG CAPS 2 po BID x 10 days AMOXICILLIN 87381116606 No Longer Active Alina Castaneda MD PhD Active HYDROCODONE-ACETAMINOPHEN 7.5-325 MG TABS 1 four times a day as needed for pain HYDROCODONE-ACETAMINOPHEN 76231181362 No Longer Active Alina Castaneda MD PhD Active METFORMIN HCL ER 500 MG [id number]-WFP Take three tablets by mouth everyday METFORMIN HCL 73701251308 Active Alina Castaneda MD PhD Active DOXEPIN HCL 10 MG CAPS Take 1 tablet by mouth daily DOXEPIN HCL 22421467984 No Longer Active Salina Han [facility] Active NAVANE 10 MG CAPS 1/2 tablet twice a day THIOTHIXENE No Longer Active Salina Han [facility] Active CYCLOBENZAPRINE HCL 10 MG TABS 1/2 tablet by mouth every 8 hours as needed for muscle spasms CYCLOBENZAPRINE HCL 87486139925 No Longer Active Alina Castaneda MD PhD Active BACTROBAN 2 % CREAM apply to ear and nose twice daily MUPIROCIN CALCIUM 11227055320 No Longer Active Alina Castaneda MD PhD Active HYDROCODONE-ACETAMINOPHEN 5-325 MG TABS take one tablet by mouth every four hours as needed for pain HYDROCODONE-ACETAMINOPHEN 78689299400 No Longer Active Alina Castaneda MD PhD Active ZOLPIDEM TARTRATE 10 MG TABS take at bedtime ZOLPIDEM TARTRATE 86162436156 Active Alina Castaneda MD PhD Active ZYPREXA 5 MG TABS take one tablet by mouth every evening OLANZAPINE 88810592323 No Longer Active Alina Castaneda MD PhD Active ALBUTEROL SULFATE 0.083 % NEBU SOLN one vial per nebulizer TID and PRN cough/ soa ALBUTEROL SULFATE 84197525200 No Longer Active Alina Castaneda MD PhD Active GUAIFENESIN 600 MG [id number]-HGZ 1 tablet by mouth twice daily if needed for cough GUAIFENESIN 46793399574 No Longer Active Marvel MARROQUIN Active AZITHROMYCIN 500 MG SOLR 1 po q day AZITHROMYCIN 45716132852 No Longer Active Alina Castaneda MD PhD Active METOPROLOL SUCCINATE 100 MG [id number]-OEA 1 by mouth daily for blood pressure METOPROLOL SUCCINATE 95089494204 Active Alina Castaneda MD PhD Active PROMETHAZINE-CODEINE 6.25-10 MG/5ML SYRP 1 tsp po q 6 hours prn cough PROMETHAZINE-CODEINE 00471525873 No Longer Active Alina Castaneda MD PhD Active CEFDINIR 300 MG CAPS by mouth twice a day CEFDINIR 57064138494 No Longer Active Alina Castaneda MD PhD Active METFORMIN HCL 500 MG GO78K-ROV Take 3 tablets by mouth everyday METFORMIN HCL 41711547767 No Longer Active Alina Castaneda MD PhD Active LEVEMIR 100 UNIT/ML SOLN 90 units SQ qHS INSULIN DETEMIR 77507900210 No Longer Active Marvel MARROQUIN Active TOPROL XL 100 MG HC58C-EDI 1 @ HS METOPROLOL SUCCINATE 07728738304 No Longer Active Marvel MARROQUIN Active ALLOPURINOL 300 MG TABS Take one by mouth daily ALLOPURINOL 90536596780 Active Alina Castaneda MD PhD Active ZYPREXA 10 MG TABS Take one by mouth daily OLANZAPINE 62017406985 No Longer Active Alina Castaneda MD PhD Active NOVOLOG 100 UNIT/ML SOLN 40 units with every meal INSULIN ASPART 26025997350 No Longer Active Alina Castaneda MD PhD Active VERAPAMIL HCL CR 120 MG TAB CR 1 qPM VERAPAMIL HCL 99213137270 No Longer Active Salina Han [facility] Active ZYPREXA 15 MG TABS Take 1 tablet by mouth daily OLANZAPINE 10004438840 No Longer Active Marvel Charles BIRD RAISER Active LISINOPRIL 20 MG TABS 1 BID LISINOPRIL 41145507380 Active Alina Castaneda MD PhD Active ALBUTEROL SULFATE (2.5 MG/3ML) 0.083% NEBU 1 neb tid and prn cough ALBUTEROL SULFATE 98398167297 No Longer Active Alina Castaneda MD PhD Active FLUVOXAMINE MALEATE 100 MG TABS Take one (1) tablet by mouth am, 05/25 at noon, 1 pm FLUVOXAMINE MALEATE 74973297193 Active Alina Castaneda MD PhD Active TRAVATAN Z 0.004 % SOLN 1 gtt each eye daily TRAVOPROST 30409342810 Active CRYSTAL Suarez Active LANTUS 100 UNIT/ML SOLN 60 units sq q hs INSULIN GLARGINE 87180273938 No Longer Active CRYSTAL Suarez Active ALBUTEROL SULFATE (2.5 MG/3ML) 0.083% NEBU 1 neb tid and prn cough ALBUTEROL SULFATE (2.5 MG/3ML) 0.083% NEBU 981963 ALBUTEROL SULFATE Inactive ZYPREXA 15 MG TABS Take 1 tablet by mouth daily ZYPREXA 15 MG TABS 637710 OLANZAPINE Inactive VERAPAMIL HCL CR 120 MG TAB CR 1 qPM VERAPAMIL HCL CR 120 MG TAB CR VERAPAMIL HCL Inactive ZYPREXA 10 MG TABS Take one by mouth daily ZYPREXA 10 MG TABS 731625 OLANZAPINE Inactive TOPROL XL 100 MG [id number] 1 @ HS TOPROL XL 100 MG [id number]-PIJ METOPROLOL SUCCINATE Inactive LEVEMIR 100 UNIT/ML SOLN 90 units SQ qHS LEVEMIR 100 UNIT/ML SOLN INSULIN DETEMIR Inactive PROMETHAZINE-CODEINE 6.25-10 MG/5ML SYRP 1 tsp po q 6 hours prn cough PROMETHAZINE-CODEINE 6.25-10 MG/5ML SYRP 673211 PROMETHAZINE- CODEINE Inactive GUAIFENESIN 600 MG VZ76U-JEM 1 tablet by mouth twice daily if needed for cough GUAIFENESIN 600 MG [id number]-ZPG GUAIFENESIN Inactive ALBUTEROL SULFATE 0.083 % NEBU SOLN one vial per nebulizer TID and PRN cough/ soa ALBUTEROL SULFATE 0.083 % NEBU SOLN 815480 ALBUTEROL SULFATE Inactive ZYPREXA 5 MG TABS take one tablet by mouth every evening ZYPREXA 5 MG TABS 847418 OLANZAPINE Inactive HYDROCODONE-ACETAMINOPHEN 5-325 MG TABS take one tablet by mouth every four hours as needed for pain HYDROCODONE-ACETAMINOPHEN 5-325 MG TABS 724059 HYDROCODONE-ACETAMINOPHEN Inactive BACTROBAN 2 % CREAM apply to ear and nose twice daily BACTROBAN 2 % CREAM 981293 MUPIROCIN CALCIUM Inactive CYCLOBENZAPRINE HCL 10 MG TABS 1/2 tablet by mouth every 8 hours as needed for muscle spasms CYCLOBENZAPRINE HCL 10 MG TABS 666924 CYCLOBENZAPRINE HCL Inactive NAVANE 10 MG CAPS 1/2 tablet twice a day NAVANE 10 MG CAPS THIOTHIXENE Inactive DOXEPIN HCL 10 MG CAPS Take 1 tablet by mouth daily DOXEPIN HCL 10 MG CAPS 5605137 DOXEPIN HCL Inactive HYDROCODONE-ACETAMINOPHEN 7.5-325 MG TABS 1 four times a day as needed for pain HYDROCODONE-ACETAMINOPHEN 7.5-325 MG TABS 955032 HYDROCODONE-ACETAMINOPHEN Inactive NIACIN CR 500 MG CR-TABS 2 qHS NIACIN CR 500 MG CR- TABS NIACIN Inactive ORPHENADRINE CITRATE ER 100 MG [id number] 1 every 12 hr. as needed ORPHENADRINE CITRATE ER 100 MG [id number] ORPHENADRINE CITRATE Inactive ACETAMINOPHEN 500 MG TABS 2 Q 6 hr. PRN ACETAMINOPHEN 500 MG TABS 405424 ACETAMINOPHEN Inactive SAPHRIS 5 MG SUBL by mouth twice a day SAPHRIS 5 MG SUBL ASENAPINE MALEATE Inactive NIACIN ER 500 MG CR-TABS 4 qHS (for triglycerides) NIACIN ER 500 MG CR-TABS NIACIN Inactive IBUPROFEN 200 MG TABS 1 Q 6 hr. PRN IBUPROFEN 200 MG TABS 905870 IBUPROFEN Inactive FLUTICASONE PROPIONATE 50 MCG/ACT SUSP 2 sprays each nostril qDay x 30 days FLUTICASONE PROPIONATE 50 MCG/ACT SUSP 334094 FLUTICASONE PROPIONATE Inactive EQL TRUETEST TEST STRP Test blood sugar TID EQL TRUETEST TEST STRP GLUCOSE BLOOD Inactive TERESE CONTOUR TEST STRP monitor blood sugars 3x/day TERESE CONTOUR TEST STRP GLUCOSE BLOOD Inactive DETROL LA 4 MG FK28O-LWB Take 1 tablet by mouth daily DETROL LA 4 MG [id number] TOLTERODINE TARTRATE Inactive ZYPREXA 7.5 MG TABS 1 at HS ZYPREXA 7.5 MG TABS 192298 OLANZAPINE Inactive THIOTHIXENE 5 MG CAPS by mouth twice a day THIOTHIXENE 5 MG CAPS 647236 THIOTHIXENE Inactive UROXATRAL 10 MG [id number]-CKZ Take 1 tablet by mouth daily UROXATRAL 10 MG [id number]-ZTH ALFUZOSIN HCL Inactive CEFDINIR 300 MG CAPS by mouth twice a day CEFDINIR 300 MG CAPS 229806 CEFDINIR Inactive AZITHROMYCIN 500 MG SOLR 1 po q day AZITHROMYCIN 500 MG SOLR 667434 AZITHROMYCIN Inactive AMOXICILLIN 500 MG CAPS 2 po BID x 10 days AMOXICILLIN 500 MG CAPS 882263 AMOXICILLIN Inactive Immunizations Vaccine Administration Date Value [...] Fluvirin, Fluarix, Agriflu(>=18 yo)) Fluzone (>3 yrs.) [[id number]] Influenza, seasonal, injectable pneumococcal immunization administered Pneumovax [...] HGBA1C - Chemistry sodium, serum 130 mmol/L 273-139 9798/06/09 potassium, serum 4.0 mmol/L 3.5-5.2 chloride, serum 92 mmol/L 98-107 carbon dioxide, venous blood 22.1 mmol/L 21.0-32.0 blood glucose 60 mg/dL 65-110 calcium, serum 9.5 mg/dL 8.5-10.1 urea nitrogen, blood 14 mg/dL 7-18 creatinine, serum 1.30 mg/dL 0.60-1.30 hemoglobin A1C, blood, as % of total hemoglobin 6.0 % 4.3-6.0 sodium, serum 131 mmol/L 715-871 8931/12/30 potassium, serum 5.0 mmol/L 3.5-5.2 chloride, serum [...] 6.0 mg/dL 2.6-7.2 sodium, serum 130 mmol/L 856-044 7023/05/01 potassium, serum 5.2 mmol/L 3.5-5.2 chloride, serum [...] 0.40 mg/dL 0.00-1.00 cholesterol, serum 151 mg/dL 546-821 6990/05/01 triglyceride, serum, fasting 356 mg/dL 30-200 HDL [...] Panel - Chemistry sodium, serum 127 mmol/L 418-179 7806/10/27 potassium, serum 4.1 mmol/L 3.5-5.2 chloride, serum [...] HGBA1C - Chemistry sodium, serum 126 mmol/L 203-520 6700/02/26 potassium, serum 4.8 mmol/L 3.5-5.2 chloride, serum [...] mg/dL Encounters Code Encounter Date Provider Facility CPT-20491 Level 3 Est. Patient 10:01:51 [facility] CPT-83413 Level 3 Est. Patient 21:54:06 CDT Vanessa Hickey MD [facility] CPT-54333 Level 3 Est. Patient 08:54:46 CDT Alina Castaneda MD PhD [facility] CPT-24022 Level 3 Est. Patient 09:32:11 CDT Marvel Charles [facility] CPT-21660 Level 3 Est. Patient 12:02:49 CDT Alina Castaneda MD [facility]-56254 Level 3 Est. Patient 19:17:33 CDT Alina Castaneda MD [facility]-63644 Level 3 Est. [facility] 13:19:10 [facility]-58623 Level 3 Est. Patient 08:20:05 CDT Alina Castaneda MD [facility]-00235 Level 3 Est. Patient 15:17:18 CDT Alina Castaneda MD [facility]-23023 Level 3 Est. Patient 14:25:36 SWEATBAND DRUMMER [facility] [place] Level 3 Est. Patient 10:09:15 [facility] Patient 21:28:43 CDT Alina Castaneda MD [facility]-45050 Level 3 Est. Patient 15:20:11 CDT [facility] Level 4 Est. Patient 19:08:12 CDT Alina Castaneda MD [facility]-35750 Level 3 Est. Patient 15:06:39 [facility]-55837 Level 4 Est. Patient 17:48:15 CDT Alina Castaneda MD [facility]-40453 Level 3 Est. Patient 14:53:49 CDT Alina Castaneda MD [facility]-95309 Level 3 Est. Patient 09:35:16 CDT Alina Castaneda MD [facility]-03068 Level 3 Est. Patient 12:23:22 CDT Alina Castaneda MD [facility]-23048 Level 3 Est. Patient 16:19:15 CDT Alina Castaneda MD [facility]-62184 Level 3 Est. Patient 21:39:56 SWEATBAND DRUMMER Alina Castaneda MD [facility]-43612 Level 4 Est. Patient 14:12:56 SWEATBAND DRUMMER Alina Castaneda MD [facility]-01880 Level 2 Est. Patient 15:34:57 SWEATBAND DRUMMER Alina Castaneda MD [facility]-50803 Level 3 Est. Patient 12:17:04 SWEATBAND DRUMMER Alnia Castaneda MD [facility]-99184 Level 3 Est. Patient 09:18:18 SWEATBAND DRUMMER Marvel Charles [facility]-70298 Level 2 Est. Patient 21:50:24 CDT Alina Castaneda MD [facility]-03422 Level 3 Est. Patient 09:17:28 CDT Marvel Charles [facility]-27463 Level 4 Est. Patient 18:54:02 CDT Alina Castaneda MD [facility]-19343 Level 3 Est. Patient 10:47:10 CDT Alina Castaneda MD [facility]-38806 Level 3 Est. Patient 09:22:20 CDT Marvel Charles [facility]-36009 Level 3 Est. Patient 16:39:43 CDT Marvel Charles [facility]-48593 Level 3 Est. Patient 16:05:16 CDT Ailna Castaneda MD [facility] CPT-73277 Level 3 Est. Patient 00:29:15 CDT Alina Castaneda MD [facility] CPT-23264 Level 3 Est. Patient 10:49:22 SWEATBAND DRUMMER Marvel Charles [facility] CPT-70058 Level 3 Est. Patient 21:30:19 SWEATBAND DRUMMER Alina Castaneda MD [facility] CPT-21503 Level 4 Est. Patient 17:04:11 SWEATBAND DRUMMER [facility] CPT-95679 Level 3 Est. Patient 15:34:11 SWEATBAND DRUMMER [facility] CPT-85455 Level 2 Est. Patient 12:51:58 SWEATBAND DRUMMER Alina Castaneda MD [facility] CPT-62348 Level 3 Est. Patient 13:20:01 SWEATBAND DRUMMER Alina Castaneda MD [facility] CPT-94833 Level 3 Est. Patient 09:23:35 CDT Alina Castaneda MD [facility] Procedures Code Procedure Name Date Entry Date Standard Description CPT-93504 Bladder Scan 21:54:06 CDT CPT-G0008 Administration of Influenza Virus Vaccine 13:05:26 CDT CPT-46559 Fluzone Quadrivalent Intramuscular Suspension 0.5 ML 13: 05:26 CDT CPT-77903 Administration single or combination vaccine inc oral 11 :49:51 CDT CPT-67486 Pneumovax 11:49:51 CDT CPT-52918 Ribs unilateral 2V 12:37:22 SWEATBAND DRUMMER CPT-66593 Chest 2V Frontal and Lat 17:15:26 CDT CPT-31731 Abx/Therapy Injection 18:54:02 CDT CPT-J0696 Rocephin 1000 mg (Ceftriaxone) 16:00:32 CDT CPT-89085 Chest 2V Frontal and Lat 15:26:45 CDT CPT-94055 Chest 2V Frontal and Lat 10:23:27 CDT CPT-28015 Venipuncture Draw Fee 10:11:00 CDT CPT-31403 Administration single or combination vaccine inc oral 11 :56:38 CDT CPT-43099 Influenza split virus > age 3 11:56:38 CDT CPT-97999 Venipuncture Draw Fee 08:49:54 SWEATBAND DRUMMER CPT-40386 EKG Trac and Interp 17:54:19 SWEATBAND DRUMMER
--- OUTSIDE RECORDS SUMMARY | 2018-07-02 19:54 | XMS REPORT | Clinical Summary ---
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 Active Alina Castaneda MD PhD Recurrent isolated sleep paralysis SPECIAL SCREENING FOR MALIGNANT NEOPLASM OF PROSTATE V76.44 Resolved Alina Castaneda MD PhD Screening for malignant neoplasms of prostate Hypoglycemia 251.2 Resolved Alina Castaneda MD PhD Hypoglycemia, unspecified Diabetes mellitus, type II 250.00 Active Mallashondaeh Bertrandari FLOORWORKER DISTRIBUTOR Diabetes mellitus without mention of complication, type [...] Castaneda MD PhD SINUSITIS, ACUTE ICD-461.9 Inactive Ailna Castaneda MD PhD DIABETIC HYPOGLYCEMIA, TYPE II ICD-250.80 Inactive Marvel 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 Roro Castaneda MD PhD SPECIAL SCREENING FOR MALIGNANT NEOPLASM OF PROSTATE ICD-V76.44 Inactive Alina Castaneda MD PhD Hypoglycemia ICD-251.2 Inactive Alina Castaneda MD PhD Dizziness ICD-780.4 Inactive Alina Castaneda MD PhD Confusion ICD-298.9 Inactive Alnia Castaneda MD PhD Medication List Medication Instructions Start Date Stop Date Generic Name NDC Status Provider Patient Instruction PENICILLIN V POTASSIUM 500 MG TABS 1 pill by mouth three times daily PENICILLIN V POTASSIUM 17993792214 Active Alnia Castaneda MD PhD Active MORPHINE SULFATE 30 MG TABS 1 pill by mouth nightly, for pain MORPHINE SULFATE 55194691385 Active Alina Castaneda MD PhD Active LATUDA 80 MG TABS 1 tab by mouth every evening LURASIDONE HCL 89086061356 Active Alnia Castaneda MD PhD Active UROXATRAL 10 MG [id number]-CRN Take 1 tablet by mouth daily ALFUZOSIN HCL 30662989325 No Longer Active lAina Castaneda MD PhD Active THIOTHIXENE 5 MG CAPS by mouth twice a day THIOTHIXENE 83169753470 No Longer Active Alina Castaneda MD PhD Active ZYPREXA 7.5 MG TABS 1 at HS OLANZAPINE 94855784001 No Longer Active Alina Castaneda MD PhD Active HUMALOG 100 UNIT/ML SOLN Take 20 units with breakfast, 10u with lunch and suppetr. INSULIN LISPRO (HUMAN) 08585752501 Active Maliheh Ziglari FLOORWORKER DISTRIBUTOR Active LEVEMIR 100 UNIT/ML SOLN Take 70 u at 7-8pm INSULIN DETEMIR 54534088155 Active Maliheh Ziglari FLOORWORKER DISTRIBUTOR Active BD INSULIN SYRINGE 28G X 1/2" 1 ML MISC 1 four times per day INSULIN SYRINGE-NEEDLE U-100 42602638160 Active Maliheh Ziglari FLOORWORKER DISTRIBUTOR Active CYCLOBENZAPRINE HCL 10 MG TABS 1 tablet by mouth three times daily, scheduled CYCLOBENZAPRINE HCL 71479662812 Active Alina Castaneda MD PhD Active TOLTERODINE TARTRATE 2 MG TABS 1 pill twice daily, for bladder TOLTERODINE TARTRATE 30770573615 Active Alina Castaneda MD PhD Active DETROL LA 4 MG BA61H-XLD Take 1 tablet by mouth daily TOLTERODINE TARTRATE 11854319332 No Longer Active Alina Castaneda MD PhD Active HYDROCODONE-ACETAMINOPHEN 5-325 MG TABS 2 tabs by mouth three times daily as needed for pain HYDROCODONE-ACETAMINOPHEN 33147746155 Active Rhett Luther DO Active TERESE CONTOUR TEST STRP monitor blood sugars 3x/day GLUCOSE BLOOD 54040389227 No Longer Active Alina Castaneda MD PhD Active EQL TRUETEST TEST STRP Test blood sugar TID GLUCOSE BLOOD 85981931499 No Longer Active Alina Castaneda MD PhD Active FLUTICASONE PROPIONATE 50 MCG/ACT SUSP 2 sprays each nostril qDay x 30 days FLUTICASONE PROPIONATE 74641035382 No Longer Active Alina Castaneda MD PhD Active IBUPROFEN 200 MG TABS 1 Q 6 hr. PRN IBUPROFEN 16051315915 No Longer Active Alina Castaneda MD PhD Active NIACIN ER 500 MG CR-TABS 4 qHS (for triglycerides) NIACIN 60289864156 No Longer Active Alina Castaneda MD PhD Active TRUETEST TEST STRP check sugars 4x/day GLUCOSE BLOOD 05664976396 Active Marvel MENDOZAP Active ALFUZOSIN HCL ER 10 MG [id number]-GAC 1 tablet daily ALFUZOSIN HCL 85207315397 Active Vanessa Hickey MD Active CLONAZEPAM 1 MG TABS 1 pill by mouth three times daily CLONAZEPAM 23339546879 Active Alina Castaneda MD PhD Active LOVAZA 1 GM CAPS 4 daily (for triglycerides) [id number] ETHYL ESTERS 62371878503 Active Alina Castaneda MD PhD Active SAPHRIS 5 MG SUBL by mouth twice a day ASENAPINE MALEATE 29808076077 No Longer Active Marvel MARROQUIN Active ACETAMINOPHEN 500 MG TABS 2 Q 6 hr. PRN ACETAMINOPHEN 41511794527 No Longer Active Marvel MARROQUIN Active VERAPAMIL HCL ER 120 MG WB35S-VDN 1 pill by mouth twice a day, for headache prevention/control VERAPAMIL HCL 58835054772 Active Alina Castaneda MD PhD Active ORPHENADRINE CITRATE ER 100 MG SK50G-UDG 1 every 12 hr. as needed ORPHENADRINE CITRATE 17889659080 No Longer Active Alina Castaneda MD PhD Active NIACIN CR 500 MG CR-TABS 2 qHS NIACIN 24590662131 No Longer Active Alina Castaneda MD PhD Active AMOXICILLIN 500 MG CAPS 2 po BID x 10 days AMOXICILLIN 48868553837 No Longer Active Alina Castaneda MD PhD Active HYDROCODONE-ACETAMINOPHEN 7.5-325 MG TABS 1 four times a day as needed for pain HYDROCODONE-ACETAMINOPHEN 89458370234 No Longer Active Alina Castaneda MD PhD Active METFORMIN HCL ER 500 MG [id number]-TMK Take three tablets by mouth everyday METFORMIN HCL 87617911911 Active Marvel MARROQUIN Active DOXEPIN HCL 10 MG CAPS Take 1 tablet by mouth daily DOXEPIN HCL 24572026173 No Longer Active Salina Han [facility] Active NAVANE 10 MG CAPS 1/2 tablet twice a day THIOTHIXENE No Longer Active Salina Han [facility] Active CYCLOBENZAPRINE HCL 10 MG TABS 1/2 tablet by mouth every 8 hours as needed for muscle spasms CYCLOBENZAPRINE HCL 00880223890 No Longer Active Alina Castaneda MD PhD Active BACTROBAN 2 % CREAM apply to ear and nose twice daily MUPIROCIN CALCIUM 43914057737 No Longer Active Alina Castaneda MD PhD Active HYDROCODONE-ACETAMINOPHEN 5-325 MG TABS take one tablet by mouth every four hours as needed for pain HYDROCODONE-ACETAMINOPHEN 81156086229 No Longer Active Alina Castaneda MD PhD Active ZOLPIDEM TARTRATE 10 MG TABS take at bedtime ZOLPIDEM TARTRATE 61333699948 Active Alina Castaneda MD PhD Active ZYPREXA 5 MG TABS take one tablet by mouth every evening OLANZAPINE 24441783637 No Longer Active Alina Castaneda MD PhD Active ALBUTEROL SULFATE 0.083 % NEBU SOLN one vial per nebulizer TID and PRN cough/ soa ALBUTEROL SULFATE 76136730332 No Longer Active Alina Castaneda MD PhD Active GUAIFENESIN 600 MG KG59R-PSF 1 tablet by mouth twice daily if needed for cough GUAIFENESIN 80593237499 No Longer Active Marvel MARROQUIN Active AZITHROMYCIN 500 MG SOLR 1 po q day AZITHROMYCIN 88583048503 No Longer Active Alina Castaneda MD PhD Active METOPROLOL SUCCINATE 100 MG GD83Y-RBN 1 by mouth daily for blood pressure METOPROLOL SUCCINATE 46914692585 Active Alina Castaneda MD PhD Active PROMETHAZINE-CODEINE 6.25-10 MG/5ML SYRP 1 tsp po q 6 hours prn cough PROMETHAZINE-CODEINE 96964016029 No Longer Active Alina Castaneda MD PhD Active CEFDINIR 300 MG CAPS by mouth twice a day CEFDINIR 86766300383 No Longer Active Alina Castaneda MD PhD Active METFORMIN HCL 500 MG QN05F-SNP Take 3 tablets by mouth everyday METFORMIN HCL 10737664870 No Longer Active Alina Castaneda MD PhD Active LEVEMIR 100 UNIT/ML SOLN 90 units SQ qHS INSULIN DETEMIR 04730886026 No Longer Active Marvel MARROQUIN Active TOPROL XL 100 MG YO18D-WND 1 @ HS METOPROLOL SUCCINATE 23351715114 No Longer Active Marvel MARROQUIN Active ALLOPURINOL 300 MG TABS Take one by mouth daily ALLOPURINOL 20475601802 Active Alina Castaneda MD PhD Active ZYPREXA 10 MG TABS Take one by mouth daily OLANZAPINE 47575717582 No Longer Active Alina Castaneda MD PhD Active NOVOLOG 100 UNIT/ML SOLN 40 units with every meal INSULIN ASPART 53806807336 No Longer Active Alina Castaneda MD PhD Active VERAPAMIL HCL CR 120 MG TAB CR 1 qPM VERAPAMIL HCL 24333131934 No Longer Active Salina ROJAS Active ZYPREXA 15 MG TABS Take 1 tablet by mouth daily OLANZAPINE 06210071509 No Longer Active Marvel MARROQUIN Active LISINOPRIL 20 MG TABS 1 BID LISINOPRIL 88700215924 Active Alina Castaneda MD PhD Active ALBUTEROL SULFATE (2.5 MG/3ML) 0.083% NEBU 1 neb tid and prn cough ALBUTEROL SULFATE 90175020844 No Longer Active Alina Castaneda MD PhD Active FLUVOXAMINE MALEATE 100 MG TABS Take one (1) tablet by mouth am, 1/2 at noon, 1 pm FLUVOXAMINE MALEATE 10767997706 Active Alina Castaneda MD PhD Active TRAVATAN Z 0.004 % SOLN 1 gtt each eye daily TRAVOPROST 35278813789 Active CRYSTAL Suarez Active LANTUS 100 UNIT/ML SOLN 60 units sq q hs INSULIN GLARGINE 00534967774 No Longer Active CRYSTAL Suarez Active ALBUTEROL SULFATE (2.5 MG/3ML) 0.083% NEBU 1 neb tid and prn cough ALBUTEROL SULFATE (2.5 MG/3ML) 0.083% NEBU 949885 ALBUTEROL SULFATE Inactive ZYPREXA 15 MG TABS Take 1 tablet by mouth daily ZYPREXA 15 MG TABS 931146 OLANZAPINE Inactive VERAPAMIL HCL CR 120 MG TAB CR 1 qPM VERAPAMIL HCL CR 120 MG TAB CR VERAPAMIL HCL Inactive ZYPREXA 10 MG TABS Take one by mouth daily ZYPREXA 10 MG TABS 545033 OLANZAPINE Inactive TOPROL XL 100 MG VE78L-JLC 1 @ HS TOPROL XL 100 MG TB14X-TCR METOPROLOL SUCCINATE Inactive LEVEMIR 100 UNIT/ML SOLN 90 units SQ qHS LEVEMIR 100 UNIT/ML SOLN INSULIN DETEMIR Inactive PROMETHAZINE-CODEINE 6.25-10 MG/5ML SYRP 1 tsp po q 6 hours prn cough PROMETHAZINE-CODEINE 6.25-10 MG/5ML SYRP 216677 PROMETHAZINE- CODEINE Inactive GUAIFENESIN 600 MG HE99N-GAY 1 tablet by mouth twice daily if needed for cough GUAIFENESIN 600 MG ZO74X-BOX GUAIFENESIN Inactive ALBUTEROL SULFATE 0.083 % NEBU SOLN one vial per nebulizer TID and PRN cough/ soa ALBUTEROL SULFATE 0.083 % NEBU SOLN 574413 ALBUTEROL SULFATE Inactive ZYPREXA 5 MG TABS take one tablet by mouth every evening ZYPREXA 5 MG TABS 385325 OLANZAPINE Inactive HYDROCODONE-ACETAMINOPHEN 5-325 MG TABS take one tablet by mouth every four hours as needed for pain HYDROCODONE-ACETAMINOPHEN 5-325 MG TABS 112159 HYDROCODONE-ACETAMINOPHEN Inactive BACTROBAN 2 % CREAM apply to ear and nose twice daily BACTROBAN 2 % CREAM 093562 MUPIROCIN CALCIUM Inactive CYCLOBENZAPRINE HCL 10 MG TABS 1/2 tablet by mouth every 8 hours as needed for muscle spasms CYCLOBENZAPRINE HCL 10 MG TABS 984328 CYCLOBENZAPRINE HCL Inactive NAVANE 10 MG CAPS 1/2 tablet twice a day NAVANE 10 MG CAPS THIOTHIXENE Inactive DOXEPIN HCL 10 MG CAPS Take 1 tablet by mouth daily DOXEPIN HCL 10 MG CAPS 3743339 DOXEPIN HCL Inactive HYDROCODONE-ACETAMINOPHEN 7.5-325 MG TABS 1 four times a day as needed for pain HYDROCODONE-ACETAMINOPHEN 7.5-325 MG TABS 415430 HYDROCODONE-ACETAMINOPHEN Inactive NIACIN CR 500 MG CR-TABS 2 qHS NIACIN CR 500 MG CR- TABS NIACIN Inactive ORPHENADRINE CITRATE ER 100 MG FX39O-MCS 1 every 12 hr. as needed ORPHENADRINE CITRATE ER 100 MG [id number] ORPHENADRINE CITRATE Inactive ACETAMINOPHEN 500 MG TABS 2 Q 6 hr. PRN ACETAMINOPHEN 500 MG TABS 437112 ACETAMINOPHEN Inactive SAPHRIS 5 MG SUBL by mouth twice a day SAPHRIS 5 MG SUBL ASENAPINE MALEATE Inactive NIACIN ER 500 MG CR-TABS 4 qHS (for triglycerides) NIACIN ER 500 MG CR-TABS NIACIN Inactive IBUPROFEN 200 MG TABS 1 Q 6 hr. PRN IBUPROFEN 200 MG TABS 361681 IBUPROFEN Inactive FLUTICASONE PROPIONATE 50 MCG/ACT SUSP 2 sprays each nostril qDay x 30 days FLUTICASONE PROPIONATE 50 MCG/ACT SUSP 964017 FLUTICASONE PROPIONATE Inactive EQL TRUETEST TEST STRP Test blood sugar TID EQL TRUETEST TEST STRP GLUCOSE BLOOD Inactive TERESE CONTOUR TEST STRP monitor blood sugars 3x/day TERESE CONTOUR TEST STRP GLUCOSE BLOOD Inactive DETROL LA 4 MG XQ33O-FKM Take 1 tablet by mouth daily DETROL LA 4 MG [id number]-EKN TOLTERODINE TARTRATE Inactive ZYPREXA 7.5 MG TABS 1 at HS ZYPREXA 7.5 MG TABS 281449 OLANZAPINE Inactive THIOTHIXENE 5 MG CAPS by mouth twice a day THIOTHIXENE 5 MG CAPS 942763 THIOTHIXENE Inactive UROXATRAL 10 MG GK45M-EYE Take 1 tablet by mouth daily UROXATRAL 10 MG CZ95Y-UZW ALFUZOSIN HCL Inactive CEFDINIR 300 MG CAPS by mouth twice a day CEFDINIR 300 MG CAPS 835620 CEFDINIR Inactive AZITHROMYCIN 500 MG SOLR 1 po q day AZITHROMYCIN 500 MG SOLR 436215 AZITHROMYCIN Inactive AMOXICILLIN 500 MG CAPS 2 po BID x 10 days AMOXICILLIN 500 MG CAPS 976032 AMOXICILLIN Inactive Immunizations Vaccine Administration Date Value [...] Fluvirin, Fluarix, Agriflu(>=18 yo)) Fluzone (>3 yrs.) [[id number]] Influenza, seasonal, injectable pneumococcal immunization administered Pneumovax [...] HGBA1C - Chemistry sodium, serum 130 mmol/L 104-154 3621/06/09 potassium, serum 4.0 mmol/L 3.5-5.2 chloride, serum 92 mmol/L 98-107 carbon dioxide, venous blood 22.1 mmol/L 21.0-32.0 blood glucose 60 mg/dL 65-110 calcium, serum 9.5 mg/dL 8.5-10.1 urea nitrogen, blood 14 mg/dL 7-18 creatinine, serum 1.30 mg/dL 0.60-1.30 hemoglobin A1C, blood, as % of total hemoglobin 6.0 % 4.3-6.0 sodium, serum 131 mmol/L 427-727 5096/12/30 potassium, serum 5.0 mmol/L 3.5-5.2 chloride, serum [...] 6.0 mg/dL 2.6-7.2 sodium, serum 130 mmol/L 341-585 8708/05/01 potassium, serum 5.2 mmol/L 3.5-5.2 chloride, serum [...] 0.40 mg/dL 0.00-1.00 cholesterol, serum 151 mg/dL 276-556 6076/05/01 triglyceride, serum, fasting 356 mg/dL 30-200 HDL [...] Panel - Chemistry sodium, serum 127 mmol/L 535-689 4037/10/27 potassium, serum 4.1 mmol/L 3.5-5.2 chloride, serum [...] mg/dL 0.00-1.00 Lab Report: Comp. Metabolic Panel, BA - Chemistry sodium, serum 126 mmol/L 253-993 8794/02/26 potassium, serum 4.8 mmol/L 3.5-5.2 chloride, serum [...] mg/dL Encounters Code Encounter Date Provider Facility CPT-87531 Level 3 Est. Patient 19:52:08 MANAGER REIMBURSEMENT Alina Castaneda MD [facility]-18104 Level 3 Est. Patient 10:01:51 MANAGER REIMBURSEMENT [facility] Est. Patient 21:54:06 CDT Vanessa Hickey MD [facility] CPT-87499 Level 3 Est. Patient 08:54:46 CDT Alina Castaneda MD [facility]-72521 Level 3 Est. [facility] 09[facility]32:[facility] CPT-38548 Level 3 Est. Patient 12:02:49 CDT Alina Castaneda MD [facility] CPT-20446 Level 3 Est. Patient 19:17:33 CDT Alina Castaneda MD [facility] CPT-40163 Level 3 Est. Patient 13:19:10 [facility]-47192 Level 3 Est. Patient 08:20:05 CDT Alina Castaneda MD [facility]-48756 Level 3 Est. Patient 15:17:18 CDT Alina Castaneda MD PhD [facility] CPT-64102 Level 3 Est. Patient 14:25:36 MANAGER REIMBURSEMENT Marvel [facility][note 3] CPT-19027 Level 3 Est. Patient 10:09:15 MANAGER REIMBURSEMENT Marvel [facility][note 3] CPT-36258 Level 3 Est. Patient 21:28:43 CDT Alina Castaneda MD [facility]-70492 Level 3 Est. Patient 15:20:11 CDT Marvel [facility][note 3] CPT-38591 Level 4 Est. Patient 19:08:12 CDT Alina Castaneda MD [facility]-21098 Level 3 Est. Patient 15:06:39 [facility] Level 4 Est. Patient 17:48:15 CDT Alina Castaneda MD [facility]-85391 Level 3 Est. Patient 14:53:49 CDT Alina Castaneda MD [facility]-54134 Level 3 Est. Patient 09:35:16 CDT Alina Castaneda MD [facility]-02869 Level 3 Est. Patient 12:23:22 CDT Alina Castaneda MD [facility]-39957 Level 3 Est. Patient 16:19:15 CDT Alina Castaneda MD [facility]-08044 Level 3 Est. Patient 21:39:56 MANAGER REIMBURSEMENT Alina Castaneda MD [facility]-90814 Level 4 Est. Patient 14:12:56 MANAGER REIMBURSEMENT Alina Castaneda MD [facility]-75940 Level 2 Est. Patient 15:34:57 MANAGER REIMBURSEMENT Alina Castaneda MD [facility]-76096 Level 3 Est. Patient 12:17:04 MANAGER REIMBURSEMENT Alina Castaneda MD [facility]-57328 Level 3 Est. Patient 09:18:18 MANAGER REIMBURSEMENT Marvel [facility]-41536 Level 2 Est. Patient 21:50:24 CDT Alina Castaneda MD [facility]-97052 Level 3 Est. Patient 09:17:28 CDT Marvel [facility]-08154 Level 4 Est. Patient 18:54:02 CDT Alina Castaneda MD [facility]-25008 Level 3 Est. Patient 10:47:10 CDT Alina Castaneda MD [facility]-01703 Level 3 Est. Patient 09:22:20 CDT Marvel [facility]-34990 Level 3 Est. Patient 16:39:43 [facility]-04628 Level 3 Est. Patient 16:05:16 CDT Alina Castaneda MD [facility]-47883 Level 3 Est. Patient 00:29:15 CDT Alina Castaneda MD [facility]-56373 Level 3 Est. Patient 10:49:22 MANAGER REIMBURSEMENT Marvel [facility]-79869 Level 3 Est. Patient 21:30:19 MANAGER REIMBURSEMENT Alina Castaneda MD [facility]-08090 Level 4 Est. Patient 17:04:11 MANAGER REIMBURSEMENT Marvel [facility]-08220 Level 3 Est. Patient 15:34:11 MANAGER REIMBURSEMENT Marvel [facility]-74040 Level 2 Est. Patient 12:51:58 MANAGER REIMBURSEMENT Alina Castaneda MD PhD [facility] CPT-42802 Level 3 Est. Patient 13:20:01 MANAGER REIMBURSEMENT Alina Castaneda MD PhD [facility] CPT-44385 Level 3 Est. Patient 09:23:35 CDT Alina Castaneda MD PhD [facility] Procedures Code Procedure Name Date Entry Date Standard Description CPT-63510 Bladder Scan 21:54:06 CDT CPT-G0008 Administration of Influenza Virus Vaccine 13:05:26 CDT CPT-66898 Fluzone Quadrivalent Intramuscular Suspension 0.5 ML 13: 05:26 CDT CPT-32249 Administration single or combination vaccine inc oral 11 :49:51 CDT CPT-46127 Pneumovax 11:49:51 CDT CPT-85593 Ribs unilateral 2V 12:37:22 MANAGER REIMBURSEMENT CPT-48409 Chest 2V Frontal and Lat 17:15:26 CDT CPT-30812 Abx/Therapy Injection 18:54:02 CDT CPT-J0696 Rocephin 1000 mg (Ceftriaxone) 16:00:32 CDT CPT-08473 Chest 2V Frontal and Lat 15:26:45 CDT CPT-92868 Chest 2V Frontal and Lat 10:23:27 CDT CPT-05423 Venipuncture Draw Fee 10:11:00 CDT CPT-57831 Administration single or combination vaccine inc oral 11 :56:38 CDT CPT-61556 Influenza split virus > age 3 11:56:38 CDT CPT-16394 Venipuncture Draw Fee 08:49:54 MANAGER REIMBURSEMENT CPT-63448 EKG Trac and Interp 17:54:19 MANAGER REIMBURSEMENT
--- OUTSIDE RECORDS SUMMARY | 2018-07-02 19:56 | XMS REPORT | Clinical Summary ---
Author Author Admin, TERELL Organization [facility] Address Unknown Phone Unavailable Allergies, Adverse Reactions, [...] NDC Status Provider Patient Instruction MORPHINE SULFATE 15 MG TABS 1 pill by mouth each evening for chronic pain control MORPHINE SULFATE 22864385640 Active Alina Castaneda MD PhD Active LATUDA 80 MG TABS 1 tab by mouth every evening LURASIDONE HCL 82128524255 Active Alina Castaneda MD PhD Active UROXATRAL 10 MG [id number] Take 1 tablet by mouth daily ALFUZOSIN HCL 77587029123 No Longer Active Alina Castaneda MD PhD Active THIOTHIXENE 5 MG CAPS by mouth twice a day THIOTHIXENE 98642682295 No Longer Active Alina Castaneda MD PhD Active ZYPREXA 7.5 MG TABS 1 at HS OLANZAPINE 67407157928 No Longer Active Alina Castaneda MD PhD Active HUMALOG 100 UNIT/ML SOLN Take 20 units with breakfast, 10u with lunch and suppetr. INSULIN LISPRO (HUMAN) 13989965872 Active Maljohn Ziglari PATROL INSPECTOR Active LEVEMIR 100 UNIT/ML SOLN Take 70 u at 7-8pm INSULIN DETEMIR 20306352650 Active Marvel Ziglari PATROL INSPECTOR Active BD INSULIN SYRINGE 28G X 1/2" 1 ML MISC 1 four times per day INSULIN SYRINGE-NEEDLE U-100 13493503763 Active Marvel Mackenzieglari PATROL INSPECTOR Active CYCLOBENZAPRINE HCL 10 MG TABS 1 tablet by mouth three times daily, scheduled CYCLOBENZAPRINE HCL 56500178106 Active Alina Castaneda MD PhD Active TOLTERODINE TARTRATE 2 MG TABS 1 pill twice daily, for bladder TOLTERODINE TARTRATE 68998636514 Active Alina Castaneda MD PhD Active DETROL LA 4 MG [id number]-CZS Take 1 tablet by mouth daily TOLTERODINE TARTRATE 58365982286 No Longer Active Alina Castaneda MD PhD Active HYDROCODONE-ACETAMINOPHEN 5-325 MG TABS 2 tabs by mouth three times daily as needed for pain HYDROCODONE-ACETAMINOPHEN 26162360806 Active Alina Castaneda MD PhD Active TERESE CONTOUR TEST STRP monitor blood sugars 3x/day GLUCOSE BLOOD 46272006356 No Longer Active Alina Castaneda MD PhD Active EQL TRUETEST TEST STRP Test blood sugar TID GLUCOSE BLOOD 43482222843 No Longer Active Alina Castaneda MD PhD Active FLUTICASONE PROPIONATE 50 MCG/ACT SUSP 2 sprays each nostril qDay x 30 days FLUTICASONE PROPIONATE 77857416565 No Longer Active Alina Castaneda MD PhD Active IBUPROFEN 200 MG TABS 1 Q 6 hr. PRN IBUPROFEN 45577219259 No Longer Active Alina Castaneda MD PhD Active NIACIN ER 500 MG CR-TABS 4 qHS (for triglycerides) NIACIN 35011518321 No Longer Active Alina Castaneda MD PhD Active TRUETEST TEST STRP check sugars 4x/day GLUCOSE BLOOD 46706031647 Active Alina Castaneda MD PhD Active ALFUZOSIN HCL ER 10 MG [id number] 1 tablet daily ALFUZOSIN HCL 01866133559 Active Vanessa Hickey MD Active CLONAZEPAM 1 MG TABS 1 pill by mouth three times daily CLONAZEPAM 87308673117 Active Alina Castaneda MD PhD Active LOVAZA 1 GM CAPS 4 daily (for triglycerides) [id number] ETHYL ESTERS 77997710473 Active Alina Castaneda MD PhD Active SAPHRIS 5 MG SUBL by mouth twice a day ASENAPINE MALEATE 51695212882 No Longer Active Marvel MENDOZAP Active ACETAMINOPHEN 500 MG TABS 2 Q 6 hr. PRN ACETAMINOPHEN 45681253846 No Longer Active Maljohn Mackenzieglari PATROL INSPECTOR Active VERAPAMIL HCL ER 120 MG [id number]-AAJ 1 pill by mouth twice a day, for headache prevention/control VERAPAMIL HCL 79003238888 Active Alina Castaneda MD PhD Active ORPHENADRINE CITRATE ER 100 MG MA96Q-QZJ 1 every 12 hr. as needed ORPHENADRINE CITRATE 81672876277 No Longer Active Alina Castaneda MD PhD Active NIACIN CR 500 MG CR-TABS 2 qHS NIACIN 57760161827 No Longer Active Alina Castaneda MD PhD Active AMOXICILLIN 500 MG CAPS 2 po BID x 10 days AMOXICILLIN 65291376738 No Longer Active Alina Castaenda MD PhD Active HYDROCODONE-ACETAMINOPHEN 7.5-325 MG TABS 1 four times a day as needed for pain HYDROCODONE-ACETAMINOPHEN 70290089213 No Longer Active Alina Castaneda MD PhD Active METFORMIN HCL ER 500 MG RL54V-PCO Take three tablets by mouth everyday METFORMIN HCL 35231883433 Active Alina Castaneda MD PhD Active DOXEPIN HCL 10 MG CAPS Take 1 tablet by mouth daily DOXEPIN HCL 20489709078 No Longer Active Salina Han RMA Active NAVANE 10 MG CAPS 1/2 tablet twice a day THIOTHIXENE No Longer Active Salina Han RMA Active CYCLOBENZAPRINE HCL 10 MG TABS 1/2 tablet by mouth every 8 hours as needed for muscle spasms CYCLOBENZAPRINE HCL 37067499984 No Longer Active Alina Castaneda MD PhD Active BACTROBAN 2 % CREAM apply to ear and nose twice daily MUPIROCIN CALCIUM 08115172560 No Longer Active Alina Castaneda MD PhD Active HYDROCODONE-ACETAMINOPHEN 5-325 MG TABS take one tablet by mouth every four hours as needed for pain HYDROCODONE-ACETAMINOPHEN 23618402125 No Longer Active Alina Castaneda MD PhD Active ZOLPIDEM TARTRATE 10 MG TABS take at bedtime ZOLPIDEM TARTRATE 71618843651 Active Alina Castaneda MD PhD Active ZYPREXA 5 MG TABS take one tablet by mouth every evening OLANZAPINE 29056733422 No Longer Active Alina Castaneda MD PhD Active ALBUTEROL SULFATE 0.083 % NEBU SOLN one vial per nebulizer TID and PRN cough/ soa ALBUTEROL SULFATE 11862764767 No Longer Active Alina Castaneda MD PhD Active GUAIFENESIN 600 MG [id number]-KVY 1 tablet by mouth twice daily if needed for cough GUAIFENESIN 95602329178 No Longer Active Marvel Charles PATROL INSPECTOR Active AZITHROMYCIN 500 MG SOLR 1 po q day AZITHROMYCIN 77631309522 No Longer Active Alina Castaneda MD PhD Active METOPROLOL SUCCINATE 100 MG IF96C-SHA 1 by mouth daily for blood pressure METOPROLOL SUCCINATE 18389627918 Active Alina Castaneda MD PhD Active PROMETHAZINE-CODEINE 6.25-10 MG/5ML SYRP 1 tsp po q 6 hours prn cough PROMETHAZINE-CODEINE 91154005671 No Longer Active Alina Castaneda MD PhD Active CEFDINIR 300 MG CAPS by mouth twice a day CEFDINIR 21688114547 No Longer Active Alina Castaneda MD PhD Active METFORMIN HCL 500 MG KT37Y-LNF Take 3 tablets by mouth everyday METFORMIN HCL 29417316301 No Longer Active Alina Castaneda MD PhD Active LEVEMIR 100 UNIT/ML SOLN 90 units SQ qHS INSULIN DETEMIR 57529681120 No Longer Active Marvel MARROQUIN Active TOPROL XL 100 MG LV99E-SUO 1 @ HS METOPROLOL SUCCINATE 13029268982 No Longer Active Marvel MARROQUIN Active ALLOPURINOL 300 MG TABS Take one by mouth daily ALLOPURINOL 25065633912 Active Alina Castaneda MD PhD Active ZYPREXA 10 MG TABS Take one by mouth daily OLANZAPINE 79329263736 No Longer Active Alina Castaneda MD PhD Active NOVOLOG 100 UNIT/ML SOLN 40 units with every meal INSULIN ASPART 04602466438 No Longer Active Alina Castaneda MD PhD Active VERAPAMIL HCL CR 120 MG TAB CR 1 qPM VERAPAMIL HCL 53469465857 No Longer Active Salina Han [facility] Active ZYPREXA 15 MG TABS Take 1 tablet by mouth daily OLANZAPINE 24049532089 No Longer Active Marvel MARROQUIN Active LISINOPRIL 20 MG TABS 1 BID LISINOPRIL 57333615634 Active Alina Castaneda MD PhD Active ALBUTEROL SULFATE (2.5 MG/3ML) 0.083% NEBU 1 neb tid and prn cough ALBUTEROL SULFATE 80635795761 No Longer Active Alina Castaneda MD PhD Active FLUVOXAMINE MALEATE 100 MG TABS Take one (1) tablet by mouth am, 1/2 at noon, 1 pm FLUVOXAMINE MALEATE 75034743658 Active Alina Castaneda MD PhD Active TRAVATAN Z 0.004 % SOLN 1 gtt each eye daily TRAVOPROST 36664383605 Active CRYSTAL Suarez Active LANTUS 100 UNIT/ML SOLN 60 units sq q hs INSULIN GLARGINE 85910779233 No Longer Active CRYSTAL Suarez Active ALBUTEROL SULFATE (2.5 MG/3ML) 0.083% NEBU 1 neb tid and prn cough ALBUTEROL SULFATE (2.5 MG/3ML) 0.083% NEBU 115125 ALBUTEROL SULFATE Inactive ZYPREXA 15 MG TABS Take 1 tablet by mouth daily ZYPREXA 15 MG TABS 202493 OLANZAPINE Inactive VERAPAMIL HCL CR 120 MG TAB CR 1 qPM VERAPAMIL HCL CR 120 MG TAB CR VERAPAMIL HCL Inactive ZYPREXA 10 MG TABS Take one by mouth daily ZYPREXA 10 MG TABS 185386 OLANZAPINE Inactive TOPROL XL 100 MG [id number] 1 @ HS TOPROL XL 100 MG EE93O-KBU METOPROLOL SUCCINATE Inactive LEVEMIR 100 UNIT/ML SOLN 90 units SQ qHS LEVEMIR 100 UNIT/ML SOLN INSULIN DETEMIR Inactive PROMETHAZINE-CODEINE 6.25-10 MG/5ML SYRP 1 tsp po q 6 hours prn cough PROMETHAZINE-CODEINE 6.25-10 MG/5ML SYRP 538592 PROMETHAZINE- CODEINE Inactive GUAIFENESIN 600 MG KS03A-CMW 1 tablet by mouth twice daily if needed for cough GUAIFENESIN 600 MG [id number]-COM GUAIFENESIN Inactive ALBUTEROL SULFATE 0.083 % NEBU SOLN one vial per nebulizer TID and PRN cough/ soa ALBUTEROL SULFATE 0.083 % NEBU SOLN 515803 ALBUTEROL SULFATE Inactive ZYPREXA 5 MG TABS take one tablet by mouth every evening ZYPREXA 5 MG TABS 897495 OLANZAPINE Inactive HYDROCODONE-ACETAMINOPHEN 5-325 MG TABS take one tablet by mouth every four hours as needed for pain HYDROCODONE-ACETAMINOPHEN 5-325 MG TABS 037301 HYDROCODONE-ACETAMINOPHEN Inactive BACTROBAN 2 % CREAM apply to ear and nose twice daily BACTROBAN 2 % CREAM 923199 MUPIROCIN CALCIUM Inactive CYCLOBENZAPRINE HCL 10 MG TABS 1/2 tablet by mouth every 8 hours as needed for muscle spasms CYCLOBENZAPRINE HCL 10 MG TABS 556321 CYCLOBENZAPRINE HCL Inactive NAVANE 10 MG CAPS 1/2 tablet twice a day NAVANE 10 MG CAPS THIOTHIXENE Inactive DOXEPIN HCL 10 MG CAPS Take 1 tablet by mouth daily DOXEPIN HCL 10 MG CAPS 9972293 DOXEPIN HCL Inactive HYDROCODONE-ACETAMINOPHEN 7.5-325 MG TABS 1 four times a day as needed for pain HYDROCODONE-ACETAMINOPHEN 7.5-325 MG TABS 072958 HYDROCODONE-ACETAMINOPHEN Inactive NIACIN CR 500 MG CR-TABS 2 qHS NIACIN CR 500 MG CR- TABS NIACIN Inactive ORPHENADRINE CITRATE ER 100 MG FI61A-NER 1 every 12 hr. as needed ORPHENADRINE CITRATE ER 100 MG [id number]-MAI ORPHENADRINE CITRATE Inactive ACETAMINOPHEN 500 MG TABS 2 Q 6 hr. PRN ACETAMINOPHEN 500 MG TABS 843102 ACETAMINOPHEN Inactive SAPHRIS 5 MG SUBL by mouth twice a day SAPHRIS 5 MG SUBL ASENAPINE MALEATE Inactive NIACIN ER 500 MG CR-TABS 4 qHS (for triglycerides) NIACIN ER 500 MG CR-TABS NIACIN Inactive IBUPROFEN 200 MG TABS 1 Q 6 hr. PRN IBUPROFEN 200 MG TABS 763835 IBUPROFEN Inactive FLUTICASONE PROPIONATE 50 MCG/ACT SUSP 2 sprays each nostril qDay x 30 days FLUTICASONE PROPIONATE 50 MCG/ACT SUSP 937395 FLUTICASONE PROPIONATE Inactive EQL TRUETEST TEST STRP Test blood sugar TID EQL TRUETEST TEST STRP GLUCOSE BLOOD Inactive TERESE CONTOUR TEST STRP monitor blood sugars 3x/day TERESE CONTOUR TEST STRP GLUCOSE BLOOD Inactive DETROL LA 4 MG [id number] Take 1 tablet by mouth daily DETROL LA 4 MG [id number]-TWX TOLTERODINE TARTRATE Inactive ZYPREXA 7.5 MG TABS 1 at HS ZYPREXA 7.5 MG TABS 134999 OLANZAPINE Inactive THIOTHIXENE 5 MG CAPS by mouth twice a day THIOTHIXENE 5 MG CAPS 035006 THIOTHIXENE Inactive UROXATRAL 10 MG JT54T-SDO Take 1 tablet by mouth daily UROXATRAL 10 MG RJ94E-OON ALFUZOSIN HCL Inactive CEFDINIR 300 MG CAPS by mouth twice a day CEFDINIR 300 MG CAPS 143677 CEFDINIR Inactive AZITHROMYCIN 500 MG SOLR 1 po q day AZITHROMYCIN 500 MG SOLR 987227 AZITHROMYCIN Inactive AMOXICILLIN 500 MG CAPS 2 po BID x 10 days AMOXICILLIN 500 MG CAPS 564319 AMOXICILLIN Inactive Immunizations Vaccine Administration Date Value [...] Fluvirin, Fluarix, Agriflu(>=18 yo)) Fluzone (>3 yrs.) [[id number]] Influenza, seasonal, injectable pneumococcal immunization administered Pneumovax [...] E&M - 3141-9 255.19 [lb_av] Weight Measured Diagnostic Results Date Name Value Unit Range Description Lab Report: Basic Metabolic Panel, HGBA1C - Chemistry sodium, serum 130 mmol/L 805-627 7799/06/09 potassium, serum 4.0 mmol/L 3.5-5.2 chloride, serum [...] 6.0 mg/dL 2.6-7.2 sodium, serum 130 mmol/L 657-273 7371/05/01 potassium, serum 5.2 mmol/L 3.5-5.2 chloride, serum [...] 0.40 mg/dL 0.00-1.00 cholesterol, serum 151 mg/dL 715-554 5845/05/01 triglyceride, serum, fasting 356 mg/dL 30-200 HDL [...] HGBA1C - Chemistry sodium, serum 126 mmol/L 510-892 1254/02/26 potassium, serum 4.8 mmol/L 3.5-5.2 chloride, serum [...] mg/dL Encounters Code Encounter Date Provider Facility CPT-93150 Level 3 Est. Patient 19:17:33 CDT Alina Castaneda MD PhD [facility] CPT-69543 Level 3 Est. [facility] CPT-26397 Level 3 Est. Patient 08:20:05 CDT Alina Castaneda MD PhD [facility] CPT-40973 Level 3 Est. Patient 15:17:18 CDT Alina Castaneda MD PhD [facility] CPT-00144 Level 3 Est. Patient 14:25:36 OCEANIC SCIENCES PROFESSOR Marvel Charles [facility] CPT-53048 Level 3 Est. Patient 10:09:15 OCEANIC SCIENCES PROFESSOR [facility] CPT-33627 Level 3 Est. Patient 21:28:43 CDT Alina Castaneda MD PhD [facility]-51260 Level 3 Est. Patient 15:20:11 [facility] CPT-68519 Level 4 Est. Patient 19:08:12 CDT Alina Castaneda MD [facility]-53928 Level 3 Est. Patient 15:06:39 CDT Marvel Charles [facility] [place]-60162 Level 4 Est. Patient 17:48:15 CDT Alina Castaneda MD [facility]-85612 Level 3 Est. Patient 14:53:49 CDT Alina Castaneda MD [facility]-76760 Level 3 Est. Patient 09:35:16 CDT Alina Castaneda MD [facility]-35471 Level 3 Est. Patient 12:23:22 CDT Alina Castaneda MD [facility]-62833 Level 3 Est. Patient 16:19:15 CDT Alina Castaneda MD [facility]-48048 Level 3 Est. Patient 21:39:56 OCEANIC SCIENCES PROFESSOR Alina Castaneda MD [facility]-20627 Level 4 Est. Patient 14:12:56 OCEANIC SCIENCES PROFESSOR Alina Castaneda MD [facility]-76203 Level 2 Est. Patient 15:34:57 OCEANIC SCIENCES PROFESSOR Alina Castaneda MD [facility]-83889 Level 3 Est. Patient 12:17:04 OCEANIC SCIENCES PROFESSOR Alina Castaneda MD [facility]-82429 Level 3 Est. Patient 09:18:18 OCEANIC SCIENCES PROFESSOR Marvel Charles [facility] [place]-00333 Level 2 Est. Patient 21:50:24 CDT Alina Castaneda MD [facility]-55552 Level 3 Est. Patient 09:17:28 CDT Marvel Charles [facility] [place]-82348 Level 4 Est. Patient 18:54:02 CDT Alina Castaneda MD [facility] CPT-33115 Level 3 Est. Patient 10:47:10 CDT Alina Castaneda MD [facility]-11568 Level 3 Est. Patient 09:22:[facility] CPT-60151 Level 3 Est. Patient 16:39:43 CDT [facility] Araceli [facility] CPT-10322 Level 3 Est. Patient 16:05:16 CDT Alina Castaneda MD [facility]-31286 Level 3 Est. Patient 00:29:15 CDT Alina Castaneda MD [facility]-15434 Level 3 Est. Patient 10:49:22 OCEANIC SCIENCES PROFESSOR [facility] Araceli [facility] CPT-27267 Level 3 Est. Patient 21:30:19 OCEANIC SCIENCES PROFESSOR Alina Castaneda MD [facility] CPT-46440 Level 4 Est. Patient 17:04:11 OCEANIC SCIENCES PROFESSOR [facility]67905 Level 3 Est. Patient 15:34:11 OCEANIC SCIENCES PROFESSOR Marvel Araceli [facility] CPT-19639 Level 2 Est. Patient 12:51:58 OCEANIC SCIENCES PROFESSOR Alina Castaneda MD PhD [facility] CPT-72000 Level 3 Est. Patient 13:20:01 OCEANIC SCIENCES PROFESSOR Alina Castaneda MD [facility] CPT-72140 Level 3 Est. Patient 09:23:35 CDT Alina Castaneda MD [facility] Procedures Code Procedure Name Date Entry Date Standard Description CPT-40529 Administration single or combination vaccine inc oral 11 :49:51 CDT CPT-10003 Pneumovax 11:49:51 CDT CPT-43720 Ribs unilateral 2V 12:37:22 OCEANIC SCIENCES PROFESSOR CPT-61342 Chest 2V Frontal and Lat 17:15:26 CDT CPT-48658 Abx/Therapy Injection 18:54:02 CDT CPT-J0696 Rocephin 1000 mg (Ceftriaxone) 16:00:32 CDT CPT-35816 Chest 2V Frontal and Lat 15:26:45 CDT CPT-87221 Chest 2V Frontal and Lat 10:23:27 CDT CPT-72735 Venipuncture Draw Fee 10:11:00 CDT CPT-67560 Administration single or combination vaccine inc oral 11 :56:38 CDT CPT-34610 Influenza split virus > age 3 11:56:38 CDT CPT-70378 Venipuncture Draw Fee 08:49:54 OCEANIC SCIENCES PROFESSOR CPT-78858 EKG Trac and Interp 17:54:19 OCEANIC SCIENCES PROFESSOR
--- OUTSIDE RECORDS SUMMARY | 2018-07-02 19:57 | XMS REPORT | Clinical Summary ---
Author Author Admin, TERELL Organization [facility] Address Unknown Phone Allergies, Adverse Reactions, Alerts [...] four times per day INSULIN SYRINGE-NEEDLE U-100 37394507980 Active Alina Castaneda MD PhD Active CYCLOBENZAPRINE HCL 10 MG TABS 1 tablet by mouth three times daily, scheduled CYCLOBENZAPRINE HCL 80246127974 Active Alina Castaneda MD PhD Active HUMALOG 100 UNIT/ML SOLN take 40u with each meal INSULIN LISPRO (HUMAN) 40554803246 Active Alina Castaneda MD PhD Active TOLTERODINE TARTRATE 2 MG TABS 1 pill twice daily, for bladder TOLTERODINE TARTRATE 72518335166 Active Alina Castaneda MD PhD Active DETROL LA 4 MG [id number] Take 1 tablet by mouth daily TOLTERODINE TARTRATE 24008425499 No Longer Active Alina Castaneda MD PhD Active HYDROCODONE-ACETAMINOPHEN 5-325 MG TABS 2 tabs by mouth three times daily as needed for pain HYDROCODONE-ACETAMINOPHEN 78577290454 Active Alina Castaneda MD PhD Active TERESE CONTOUR TEST STRP monitor blood sugars 3x/day GLUCOSE BLOOD 98717761579 No Longer Active Alina Castaneda MD PhD Active EQL TRUETEST TEST STRP Test blood sugar TID GLUCOSE BLOOD 52614582643 No Longer Active Alina Castaneda MD PhD Active FLUTICASONE PROPIONATE 50 MCG/ACT SUSP 2 sprays each nostril qDay x 30 days FLUTICASONE PROPIONATE 32135117399 No Longer Active Alina Castaneda MD PhD Active IBUPROFEN 200 MG TABS 1 Q 6 hr. PRN IBUPROFEN 17453353090 No Longer Active Alina Castaneda MD PhD Active NIACIN ER 500 MG CR-TABS 4 qHS (for triglycerides) NIACIN 31626920945 No Longer Active Alina Castaneda MD PhD Active LEVEMIR 100 UNIT/ML SOLN Take 100u at 7-8pm INSULIN DETEMIR 16554358530 Active Alina Castaneda MD PhD Active TRUETEST TEST STRP check sugars 4x/day GLUCOSE BLOOD 13748508415 Active Alina Castaneda MD PhD Active ALFUZOSIN HCL ER 10 MG [id number] 1 tablet daily ALFUZOSIN HCL 45179946595 Active Vanessa Hickey MD Active CLONAZEPAM 1 MG TABS 1 pill by mouth three times daily CLONAZEPAM 34786114337 Active Alina Castaneda MD PhD Active LOVAZA 1 GM CAPS 4 daily (for triglycerides) YNIZR-6-MMCL ETHYL ESTERS 52918757587 Active Alina Castaneda MD PhD Active SAPHRIS 5 MG SUBL by mouth twice a day ASENAPINE MALEATE 09379475011 No Longer Active Maliheh Gurdeepglestela [facility] Active ACETAMINOPHEN 500 MG TABS 2 Q 6 hr. PRN ACETAMINOPHEN 19008933187 No Longer Active Marvel MENDOZAP Active VERAPAMIL HCL ER 120 MG [id number] 1 pill by mouth twice a day, for headache prevention/control VERAPAMIL HCL 35517340381 Active Alina Castaneda MD PhD Active ORPHENADRINE CITRATE ER 100 MG ZJ13A-KVM 1 every 12 hr. as needed ORPHENADRINE CITRATE 61251925820 No Longer Active Alina Castaneda MD PhD Active NIACIN CR 500 MG CR-TABS 2 qHS NIACIN 94360025104 No Longer Active Alina Castaneda MD PhD Active AMOXICILLIN 500 MG CAPS 2 po BID x 10 days AMOXICILLIN 02427143054 No Longer Active Alina Castaneda MD PhD Active ZYPREXA 7.5 MG TABS 1 at HS OLANZAPINE 74216379931 Active Alina Castaneda MD PhD Active THIOTHIXENE 5 MG CAPS by mouth twice a day THIOTHIXENE 15865963245 Active Alina Castaneda MD PhD Active HYDROCODONE-ACETAMINOPHEN 7.5-325 MG TABS 1 four times a day as needed for pain HYDROCODONE-ACETAMINOPHEN 12240768685 No Longer Active Alina Castaneda MD PhD Active METFORMIN HCL ER 500 MG AS95F-MOC Take three tablets by mouth everyday METFORMIN HCL 02859222821 Active Marvel MENDOZAP Active DOXEPIN HCL 10 MG CAPS Take 1 tablet by mouth daily DOXEPIN HCL 04388952617 No Longer Active Salina Han [facility] Active NAVANE 10 MG CAPS 1/2 tablet twice a day THIOTHIXENE No Longer Active Salina ROBBINS Active CYCLOBENZAPRINE HCL 10 MG TABS 1/2 tablet by mouth every 8 hours as needed for muscle spasms CYCLOBENZAPRINE HCL 36409064823 No Longer Active Alina Castaneda MD PhD Active BACTROBAN 2 % CREAM apply to ear and nose twice daily MUPIROCIN CALCIUM 71947856777 No Longer Active Alina Castaneda MD PhD Active HYDROCODONE-ACETAMINOPHEN 5-325 MG TABS take one tablet by mouth every four hours as needed for pain HYDROCODONE-ACETAMINOPHEN 53867775120 No Longer Active Alina Castaneda MD PhD Active ZOLPIDEM TARTRATE 10 MG TABS take at bedtime ZOLPIDEM TARTRATE 35913566202 Active Alina Castaneda MD PhD Active ZYPREXA 5 MG TABS take one tablet by mouth every evening OLANZAPINE 22858970710 No Longer Active Alina Castaneda MD PhD Active ALBUTEROL SULFATE 0.083 % NEBU SOLN one vial per nebulizer TID and PRN cough/ soa ALBUTEROL SULFATE 67183466043 No Longer Active Alina Castaneda MD PhD Active GUAIFENESIN 600 MG ZS45J-LCW 1 tablet by mouth twice daily if needed for cough GUAIFENESIN 31538740194 No Longer Active Marvel MARROQUIN Active AZITHROMYCIN 500 MG SOLR 1 po q day AZITHROMYCIN 16916588110 No Longer Active Alina Castaneda MD PhD Active METOPROLOL SUCCINATE 100 MG HE14K-REC 1 by mouth daily for blood pressure METOPROLOL SUCCINATE 18769636134 Active Alina Castaneda MD PhD Active PROMETHAZINE-CODEINE 6.25-10 MG/5ML SYRP 1 tsp po q 6 hours prn cough PROMETHAZINE-CODEINE 29970516352 No Longer Active Alina Castaneda MD PhD Active CEFDINIR 300 MG CAPS by mouth twice a day CEFDINIR 13625982331 No Longer Active Alina Castaneda MD PhD Active METFORMIN HCL 500 MG VE20B-NVH Take 3 tablets by mouth everyday METFORMIN HCL 18938697931 No Longer Active Alina Castaneda MD PhD Active LEVEMIR 100 UNIT/ML SOLN 90 units SQ qHS INSULIN DETEMIR 13373833896 No Longer Active Marvel MARROQUIN Active TOPROL XL 100 MG ID44A-DMV 1 @ HS METOPROLOL SUCCINATE 47150429091 No Longer Active Marvel MARROQUIN Active ALLOPURINOL 300 MG TABS Take one by mouth daily ALLOPURINOL 30616664689 Active Alina Castaneda MD PhD Active ZYPREXA 10 MG TABS Take one by mouth daily OLANZAPINE 73738679382 No Longer Active Alina Castaneda MD PhD Active NOVOLOG 100 UNIT/ML SOLN 40 units with every meal INSULIN ASPART 05994760066 No Longer Active Alina Castaneda MD PhD Active VERAPAMIL HCL CR 120 MG TAB CR 1 qPM VERAPAMIL HCL 47223835848 No Longer Active Salina Han A Active ZYPREXA 15 MG TABS Take 1 tablet by mouth daily OLANZAPINE 53719919933 No Longer Active Marvel MARROQUIN Active LISINOPRIL 20 MG TABS 1 BID LISINOPRIL 00853830307 Active Mao Rodriguez MD Active ALBUTEROL SULFATE (2.5 MG/3ML) 0.083% NEBU 1 neb tid and prn cough ALBUTEROL SULFATE 59193503132 No Longer Active Alina Castaneda MD PhD Active FLUVOXAMINE MALEATE 100 MG TABS Take one (1) tablet by mouth am, 1/2 at noon, 1 pm FLUVOXAMINE MALEATE 16111011676 Active Alina Castaneda MD PhD Active TRAVATAN Z 0.004 % SOLN 1 gtt each eye daily TRAVOPROST 61836809530 Active Alina Mendez Active LANTUS 100 UNIT/ML SOLN 60 units sq q hs INSULIN GLARGINE 44960288754 No Longer Active Alina Mendez Active UROXATRAL 10 MG [id number]-XVY Take 1 tablet by mouth daily ALFUZOSIN HCL 86121473006 Active Tanya MARROQUIN Active ALBUTEROL SULFATE (2.5 MG/3ML) 0.083% NEBU 1 neb tid and prn cough ALBUTEROL SULFATE (2.5 MG/3ML) 0.083% NEBU 186148 ALBUTEROL SULFATE Inactive ZYPREXA 15 MG TABS Take 1 tablet by mouth daily ZYPREXA 15 MG TABS 695930 OLANZAPINE Inactive VERAPAMIL HCL CR 120 MG TAB CR 1 qPM VERAPAMIL HCL CR 120 MG TAB CR VERAPAMIL HCL Inactive ZYPREXA 10 MG TABS Take one by mouth daily ZYPREXA 10 MG TABS 093124 OLANZAPINE Inactive TOPROL XL 100 MG [id number] 1 @ HS TOPROL XL 100 MG QJ45N-VGR METOPROLOL SUCCINATE Inactive LEVEMIR 100 UNIT/ML SOLN 90 units SQ qHS LEVEMIR 100 UNIT/ML SOLN INSULIN DETEMIR Inactive PROMETHAZINE-CODEINE 6.25-10 MG/5ML SYRP 1 tsp po q 6 hours prn cough PROMETHAZINE-CODEINE 6.25-10 MG/5ML SYRP 019806 PROMETHAZINE- CODEINE Inactive GUAIFENESIN 600 MG IY15X-NTW 1 tablet by mouth twice daily if needed for cough GUAIFENESIN 600 MG DW19L-BJB GUAIFENESIN Inactive ALBUTEROL SULFATE 0.083 % NEBU SOLN one vial per nebulizer TID and PRN cough/ soa ALBUTEROL SULFATE 0.083 % NEBU SOLN 103908 ALBUTEROL SULFATE Inactive ZYPREXA 5 MG TABS take one tablet by mouth every evening ZYPREXA 5 MG TABS 423045 OLANZAPINE Inactive HYDROCODONE-ACETAMINOPHEN 5-325 MG TABS take one tablet by mouth every four hours as needed for pain HYDROCODONE-ACETAMINOPHEN 5-325 MG TABS 305755 HYDROCODONE-ACETAMINOPHEN Inactive BACTROBAN 2 % CREAM apply to ear and nose twice daily BACTROBAN 2 % CREAM 450089 MUPIROCIN CALCIUM Inactive CYCLOBENZAPRINE HCL 10 MG TABS 1/2 tablet by mouth every 8 hours as needed for muscle spasms CYCLOBENZAPRINE HCL 10 MG TABS 237790 CYCLOBENZAPRINE HCL Inactive NAVANE 10 MG CAPS 1/2 tablet twice a day NAVANE 10 MG CAPS THIOTHIXENE Inactive DOXEPIN HCL 10 MG CAPS Take 1 tablet by mouth daily DOXEPIN HCL 10 MG CAPS 0248201 DOXEPIN HCL Inactive HYDROCODONE-ACETAMINOPHEN 7.5-325 MG TABS 1 four times a day as needed for pain HYDROCODONE-ACETAMINOPHEN 7.5-325 MG TABS 864805 HYDROCODONE-ACETAMINOPHEN Inactive NIACIN CR 500 MG CR-TABS 2 qHS NIACIN CR 500 MG CR- TABS NIACIN Inactive ORPHENADRINE CITRATE ER 100 MG [id number] 1 every 12 hr. as needed ORPHENADRINE CITRATE ER 100 MG [id number] ORPHENADRINE CITRATE Inactive ACETAMINOPHEN 500 MG TABS 2 Q 6 hr. PRN ACETAMINOPHEN 500 MG TABS 971196 ACETAMINOPHEN Inactive SAPHRIS 5 MG SUBL by mouth twice a day SAPHRIS 5 MG SUBL ASENAPINE MALEATE Inactive NIACIN ER 500 MG CR-TABS 4 qHS (for triglycerides) NIACIN ER 500 MG CR-TABS NIACIN Inactive IBUPROFEN 200 MG TABS 1 Q 6 hr. PRN IBUPROFEN 200 MG TABS 366319 IBUPROFEN Inactive FLUTICASONE PROPIONATE 50 MCG/ACT SUSP 2 sprays each nostril qDay x 30 days FLUTICASONE PROPIONATE 50 MCG/ACT SUSP 129416 FLUTICASONE PROPIONATE Inactive EQL TRUETEST TEST STRP Test blood sugar TID EQL TRUETEST TEST STRP GLUCOSE BLOOD Inactive TERESE CONTOUR TEST STRP monitor blood sugars 3x/day TERESE CONTOUR TEST STRP GLUCOSE BLOOD Inactive DETROL LA 4 MG [id number] Take 1 tablet by mouth daily DETROL LA 4 MG HC72P-UAP TOLTERODINE TARTRATE Inactive CEFDINIR 300 MG CAPS by mouth twice a day CEFDINIR 300 MG CAPS 903062 CEFDINIR Inactive AZITHROMYCIN 500 MG SOLR 1 po q day AZITHROMYCIN 500 MG SOLR 926041 AZITHROMYCIN Inactive AMOXICILLIN 500 MG CAPS 2 po BID x 10 days AMOXICILLIN 500 MG CAPS 807901 AMOXICILLIN Inactive Immunizations Vaccine Administration Date Value [...] Fluvirin, Fluarix, Agriflu(>=18 yo)) Fluzone (>3 yrs.) [[id number]] Influenza, seasonal, injectable pneumococcal immunization administered Pneumovax [...] Measured blood pressure, diastolic 83 mm[Hg] BP garcai blood pressure, systolic 137 mm[Hg] BP sys [...] acid - Chemistry sodium, serum 130 mmol/L 790-892 6304/05/01 potassium, serum 5.2 mmol/L 3.5-5.2 chloride, serum [...] 0.40 mg/dL 0.00-1.00 cholesterol, serum 151 mg/dL 334-167 3467/05/01 triglyceride, serum, fasting 356 mg/dL 30-200 HDL [...] HGBA1C - Chemistry sodium, serum 126 mmol/L 392-986 8835/02/26 potassium, serum 4.8 mmol/L 3.5-5.2 chloride, serum [...] DIRECT - Chemistry cholesterol, serum 158 mg/dL 765-567 3923/07/11 triglyceride, serum, fasting 489 mg/dL 30-200 HDL [...] mg/dL Encounters Code Encounter Date Provider Facility CPT-29197 Level 3 Est. Patient 08:20:05 CDT Alina Castaneda MD PhD [facility]-77967 Level 3 Est. Patient 15:17:18 CDT Alina Castaneda MD PhD [facility]-06923 Level 3 Est. Patient 14:25:36 [employer] SERV[employer] [facility]-07524 Level 3 Est. Patient 10:09:15 BREAKFAST SERVER [facility] [place] [place] CPT-49768 Level 3 Est. Patient 21:28:43 CDT Alina Castaneda MD PhD [facility]-41821 Level 3 Est. Patient 15:20:11 CDT [facility] Gurdeepestela [facility]-11896 Level 4 Est. Patient 19:08:12 CDT Alina Castaneda MD PhD [facility]45267 Level 3 Est. Patient 15:06:39 CDT [facility] Gurdeepestela [facility]-88135 Level 4 Est. Patient 17:48:15 CDT [id number] Level 3 Est. Patient 14:53:49 CDT Alina Castaneda MD [id number] Level 3 Est. Patient 09:35:16 CDT Alina Castaneda MD [id number] Level 3 Est. Patient 12:23:22 CDT Alina Castaneda MD [id number] Level 3 Est. Patient 16:19:15 CDT Alina Castaneda MD [id number] Level 3 Est. Patient 21:39:56 [employer] SERVER Alina Castaneda MD [id number] Level 4 Est. Patient 14:12:56 [employer]ER Alina Castaneda MD [facility] [id number] Level 2 Est. Patient 15:34:57 [employer] SERVER Alina Castaneda MD [facility] [id number] Level 3 Est. Patient 12:17:04 [employer]FA[employer] SERVER Alina Castaneda MD [id number] Level 3 Est. Patient 09:18:18 BREAKFAST SERVER Marvel Charles [facility]-25965 Level 2 Est. Patient 21:50:24 CDT Alina Castaneda MD [facility] [phone] Level 3 Est. Patient 09:17:28 CDT Marvel [facility]-27191 Level 4 Est. Patient 18:54:02 CDT Alina Castaneda MD [id number] Level 3 Est. Patient 10:47:10 CDT Alina Castaneda MD [id number] Level 3 Est. [facility] 09:22:20 [facility] Est[facility]:39[facility] CPT-95352 Level 3 Est. Patient 16:05:16 CDT Alina Castaneda MD [facility] CPT-87889 Level 3 Est. Patient 00:29:15 CDT Alina Castaneda MD [facility] CPT-31799 Level 3 Est. Patient 10:49:22 [employer]FA[employer] SERVER Marvel Thurstonestela [facility] [place] CPT-14664 Level 3 Est. Patient 21:30:19 [employer]FA[employer] SERVER Alina Castaneda MD [facility] CPT-57643 Level 4 Est. Patient 17:04:11 BREAKFAST SERVER [facility] Level 3 Est. Patient 15:34:11 BREAKFAST SERVER [facility] [place] [place] CPT-85906 Level 2 Est. Patient 12:51:58 [employer]AKFA[employer] SERVER Alina Castaneda MD [facility] CPT-45554 Level 3 Est. Patient 13:20:01 [employer]FA[employer] SERVER Alina Castaneda MD [facility] CPT-53732 Level 3 Est. Patient 09:23:35 CDT Alina Castaneda MD [facility] Procedures Code Procedure Name Date Entry Date Standard Description CPT-71939 Administration single or combination vaccine inc oral 11 :49:51 CDT CPT-05618 Pneumovax 11:49:51 CDT CPT-27120 Ribs unilateral 2V 12:37:22 [employer] CPT-37997 Chest 2V Frontal and Lat 17:15:26 CDT CPT-84927 Abx/Therapy Injection 18:54:02 CDT CPT-J0696 Rocephin 1000 mg (Ceftriaxone) 16:00:32 CDT CPT-19372 Chest 2V Frontal and Lat 15:26:45 CDT CPT-20444 Chest 2V Frontal and Lat 10:23:27 CDT CPT-35828 Venipuncture Draw Fee 10:11:00 CDT CPT-76820 Administration single or combination vaccine inc oral 11 :56:38 CDT CPT-21906 Influenza split virus > age 3 11:56:38 CDT CPT-96960 Venipuncture Draw Fee 08:49:54 [employer] SERVER CPT-38878 EKG Trac and Interp 17:54:19 BREAKFAST SERVER
--- OUTSIDE RECORDS SUMMARY | 2018-07-02 19:58 | XMS REPORT | Clinical Summary ---
Author Author Admin, TERELL Organization [facility] Address Unknown Phone Allergies, Adverse Reactions, Alerts [...] units with other meals. INSULIN LISPRO (HUMAN) [id number] Active Marvel MARROQUIN Active BD INSULIN SYRINGE 28G X 1/2" 1 ML MISC 1 four times per day INSULIN SYRINGE-NEEDLE U-100 28822529271 Active Alina Castaneda MD PhD Active CYCLOBENZAPRINE HCL 10 MG TABS 1 tablet by mouth three times daily, scheduled CYCLOBENZAPRINE HCL 26708716082 Active Alina Castaneda MD PhD Active TOLTERODINE TARTRATE 2 MG TABS 1 pill twice daily, for bladder TOLTERODINE TARTRATE 78357252404 Active Alina Castaneda MD PhD Active DETROL LA 4 MG [id number] Take 1 tablet by mouth daily TOLTERODINE TARTRATE 06160234428 No Longer Active Alina Castaneda MD PhD Active HYDROCODONE-ACETAMINOPHEN 5-325 MG TABS 2 tabs by mouth three times daily as needed for pain HYDROCODONE-ACETAMINOPHEN 87462258908 Active Alina Castaneda MD PhD Active TERESE CONTOUR TEST STRP monitor blood sugars 3x/day GLUCOSE BLOOD 94209880887 No Longer Active Alina Castaneda MD PhD Active EQL TRUETEST TEST STRP Test blood sugar TID GLUCOSE BLOOD 65836972963 No Longer Active Alina Castaneda MD PhD Active FLUTICASONE PROPIONATE 50 MCG/ACT SUSP 2 sprays each nostril qDay x 30 days FLUTICASONE PROPIONATE 68052389236 No Longer Active Alina Castaneda MD PhD Active IBUPROFEN 200 MG TABS 1 Q 6 hr. PRN IBUPROFEN 71962080079 No Longer Active Alina Castaneda MD PhD Active NIACIN ER 500 MG CR-TABS 4 qHS (for triglycerides) NIACIN 39381651780 No Longer Active Alina Castaneda MD PhD Active LEVEMIR 100 UNIT/ML SOLN Take 100u at 7-8pm INSULIN DETEMIR 81101219231 Active Marvel Charles [employer] Active TRUETEST TEST STRP check sugars 4x/day GLUCOSE BLOOD 79798872059 Active Alina Castaneda MD PhD Active ALFUZOSIN HCL ER 10 MG [id number] 1 tablet daily ALFUZOSIN HCL 76354560589 Active Vanessa Hickey MD Active CLONAZEPAM 1 MG TABS 1 pill by mouth three times daily CLONAZEPAM 32586114070 Active Alina Castaneda MD PhD Active LOVAZA 1 GM CAPS 4 daily (for triglycerides) [id number] ETHYL ESTERS 96920072943 Active Alina Castaneda MD PhD Active SAPHRIS 5 MG SUBL by mouth twice a day ASENAPINE MALEATE 73206915077 No Longer Active Marvel MENDOZAP Active ACETAMINOPHEN 500 MG TABS 2 Q 6 hr. PRN ACETAMINOPHEN 82846790621 No Longer [facility] Active VERAPAMIL HCL ER 120 MG [id number] 1 pill by mouth twice a day, for headache prevention/control VERAPAMIL HCL 89628337336 Active Alina Castaneda MD PhD Active ORPHENADRINE CITRATE ER 100 MG [id number] 1 every 12 hr. as needed ORPHENADRINE CITRATE 53091642396 No Longer Active Alina Castaneda MD PhD Active NIACIN CR 500 MG CR-TABS 2 qHS NIACIN 62276921549 No Longer Active Alina Castaneda MD PhD Active AMOXICILLIN 500 MG CAPS 2 po BID x 10 days AMOXICILLIN 96289063715 No Longer Active Alina Castaneda MD PhD Active ZYPREXA 7.5 MG TABS 1 at HS OLANZAPINE 22850963781 Active Alina Castaneda MD PhD Active THIOTHIXENE 5 MG CAPS by mouth twice a day THIOTHIXENE 60572555062 Active Alina Castaneda MD PhD Active HYDROCODONE-ACETAMINOPHEN 7.5-325 MG TABS 1 four times a day as needed for pain HYDROCODONE-ACETAMINOPHEN 85732571850 No Longer Active Alina Castaneda MD PhD Active METFORMIN HCL ER 500 MG [id number]-ZMK Take three tablets by mouth everyday METFORMIN HCL 45719454395 Active Marvel MENDOZAP Active DOXEPIN HCL 10 MG CAPS Take 1 tablet by mouth daily DOXEPIN HCL 97164185934 No Longer Active Slaina ROJAS Active NAVANE 10 MG CAPS 1/2 tablet twice a day THIOTHIXENE No Longer Active Salina ROBBINSA Active CYCLOBENZAPRINE HCL 10 MG TABS 1/2 tablet by mouth every 8 hours as needed for muscle spasms CYCLOBENZAPRINE HCL 56351203450 No Longer Active Alina Castaneda MD PhD Active BACTROBAN 2 % CREAM apply to ear and nose twice daily MUPIROCIN CALCIUM 80561496197 No Longer Active Alina Castaneda MD PhD Active HYDROCODONE-ACETAMINOPHEN 5-325 MG TABS take one tablet by mouth every four hours as needed for pain HYDROCODONE-ACETAMINOPHEN 75387596414 No Longer Active Alina Castaneda MD PhD Active ZOLPIDEM TARTRATE 10 MG TABS take at bedtime ZOLPIDEM TARTRATE 04392608836 Active Alina Castaneda MD PhD Active ZYPREXA 5 MG TABS take one tablet by mouth every evening OLANZAPINE 93683136736 No Longer Active Alina Castaneda MD PhD Active ALBUTEROL SULFATE 0.083 % NEBU SOLN one vial per nebulizer TID and PRN cough/ soa ALBUTEROL SULFATE 73794120638 No Longer Active Alina Castaneda MD PhD Active GUAIFENESIN 600 MG [id number]-RKC 1 tablet by mouth twice daily if needed for cough GUAIFENESIN 67310695981 No Longer Active Marvel Charles [employer]IST Active AZITHROMYCIN 500 MG SOLR 1 po q day AZITHROMYCIN 34090065911 No Longer Active Alina Castaneda MD PhD Active METOPROLOL SUCCINATE 100 MG [id number]-JIU 1 by mouth daily for blood pressure METOPROLOL SUCCINATE 23114956852 Active Alina Castaneda MD PhD Active PROMETHAZINE-CODEINE 6.25-10 MG/5ML SYRP 1 tsp po q 6 hours prn cough PROMETHAZINE-CODEINE 85380460915 No Longer Active Alina Castaneda MD PhD Active CEFDINIR 300 MG CAPS by mouth twice a day CEFDINIR 68688690959 No Longer Active Alina Castaneda MD PhD Active METFORMIN HCL 500 MG AT88N-QDJ Take 3 tablets by mouth everyday METFORMIN HCL 12597179945 No Longer Active Alina Castaneda MD PhD Active LEVEMIR 100 UNIT/ML SOLN 90 units SQ qHS INSULIN DETEMIR 76296140801 No Longer Active Marvel MARROQUIN Active TOPROL XL 100 MG [id number] 1 @ HS METOPROLOL SUCCINATE 40713300320 No Longer Active Marvel MARROQUIN Active ALLOPURINOL 300 MG TABS Take one by mouth daily ALLOPURINOL 75166396794 Active Alina Castaneda MD PhD Active ZYPREXA 10 MG TABS Take one by mouth daily OLANZAPINE 52027575738 No Longer Active Alina Castaneda MD PhD Active NOVOLOG 100 UNIT/ML SOLN 40 units with every meal INSULIN ASPART 00791609053 No Longer Active Alina Castaneda MD PhD Active VERAPAMIL HCL CR 120 MG TAB CR 1 qPM VERAPAMIL HCL 98239477320 No Longer Active Salina Emely [facility] Active ZYPREXA 15 MG TABS Take 1 tablet by mouth daily OLANZAPINE 31290290698 No Longer Active Marvel MARROQUIN Active LISINOPRIL 20 MG TABS 1 BID LISINOPRIL 15061680224 Active Mao Rodriguez MD Active ALBUTEROL SULFATE (2.5 MG/3ML) 0.083% NEBU 1 neb tid and prn cough ALBUTEROL SULFATE 18857531580 No Longer Active Alina Castaneda MD PhD Active FLUVOXAMINE MALEATE 100 MG TABS Take one (1) tablet by mouth am, 1/2 at noon, 1 pm FLUVOXAMINE MALEATE 75175267830 Active Alina Castaneda MD PhD Active TRAVATAN Z 0.004 % SOLN 1 gtt each eye daily TRAVOPROST 31638421947 Active Alina Mendez Active LANTUS 100 UNIT/ML SOLN 60 units sq q hs INSULIN GLARGINE 22346380172 No Longer Active Alina Mendez Active UROXATRAL 10 MG [id number]-RHL Take 1 tablet by mouth daily ALFUZOSIN HCL 26667648045 Active Tanya MARROQUIN Active ALBUTEROL SULFATE (2.5 MG/3ML) 0.083% NEBU 1 neb tid and prn cough ALBUTEROL SULFATE (2.5 MG/3ML) 0.083% NEBU 875805 ALBUTEROL SULFATE Inactive ZYPREXA 15 MG TABS Take 1 tablet by mouth daily ZYPREXA 15 MG TABS 055165 OLANZAPINE Inactive VERAPAMIL HCL CR 120 MG TAB CR 1 qPM VERAPAMIL HCL CR 120 MG TAB CR VERAPAMIL HCL Inactive ZYPREXA 10 MG TABS Take one by mouth daily ZYPREXA 10 MG TABS 039901 OLANZAPINE Inactive TOPROL XL 100 MG IN52B-GAG 1 @ HS TOPROL XL 100 MG ME28M-NMK METOPROLOL SUCCINATE Inactive LEVEMIR 100 UNIT/ML SOLN 90 units SQ qHS LEVEMIR 100 UNIT/ML SOLN INSULIN DETEMIR Inactive PROMETHAZINE-CODEINE 6.25-10 MG/5ML SYRP 1 tsp po q 6 hours prn cough PROMETHAZINE-CODEINE 6.25-10 MG/5ML SYRP 291195 PROMETHAZINE- CODEINE Inactive GUAIFENESIN 600 MG KW60B-[id number] 1 tablet by mouth twice daily if needed for cough GUAIFENESIN 600 MG [id number]-[id number] GUAIFENESIN Inactive ALBUTEROL SULFATE 0.083 % NEBU SOLN one vial per nebulizer TID and PRN cough/ soa ALBUTEROL SULFATE 0.083 % NEBU SOLN 964661 ALBUTEROL SULFATE Inactive ZYPREXA 5 MG TABS take one tablet by mouth every evening ZYPREXA 5 MG TABS 510479 OLANZAPINE Inactive HYDROCODONE-ACETAMINOPHEN 5-325 MG TABS take one tablet by mouth every four hours as needed for pain HYDROCODONE-ACETAMINOPHEN 5-325 MG TABS 598986 HYDROCODONE-ACETAMINOPHEN Inactive BACTROBAN 2 % CREAM apply to ear and nose twice daily BACTROBAN 2 % CREAM 563225 MUPIROCIN CALCIUM Inactive CYCLOBENZAPRINE HCL 10 MG TABS 1/2 tablet by mouth every 8 hours as needed for muscle spasms CYCLOBENZAPRINE HCL 10 MG TABS 175410 CYCLOBENZAPRINE HCL Inactive NAVANE 10 MG CAPS 1/2 tablet twice a day NAVANE 10 MG CAPS THIOTHIXENE Inactive DOXEPIN HCL 10 MG CAPS Take 1 tablet by mouth daily DOXEPIN HCL 10 MG CAPS 4613730 DOXEPIN HCL Inactive HYDROCODONE-ACETAMINOPHEN 7.5-325 MG TABS 1 four times a day as needed for pain HYDROCODONE-ACETAMINOPHEN 7.5-325 MG TABS 662091 HYDROCODONE-ACETAMINOPHEN Inactive NIACIN CR 500 MG CR-TABS 2 qHS NIACIN CR 500 MG CR- TABS NIACIN Inactive ORPHENADRINE CITRATE ER 100 MG [id number] 1 every 12 hr. as needed ORPHENADRINE CITRATE ER 100 MG [id number] ORPHENADRINE CITRATE Inactive ACETAMINOPHEN 500 MG TABS 2 Q 6 hr. PRN ACETAMINOPHEN 500 MG TABS 285516 ACETAMINOPHEN Inactive SAPHRIS 5 MG SUBL by mouth twice a day SAPHRIS 5 MG SUBL ASENAPINE MALEATE Inactive NIACIN ER 500 MG CR-TABS 4 qHS (for triglycerides) NIACIN ER 500 MG CR-TABS NIACIN Inactive IBUPROFEN 200 MG TABS 1 Q 6 hr. PRN IBUPROFEN 200 MG TABS 758294 IBUPROFEN Inactive FLUTICASONE PROPIONATE 50 MCG/ACT SUSP 2 sprays each nostril qDay x 30 days FLUTICASONE PROPIONATE 50 MCG/ACT SUSP 963558 FLUTICASONE PROPIONATE Inactive EQL TRUETEST TEST STRP Test blood sugar TID EQL TRUETEST TEST STRP GLUCOSE BLOOD Inactive TERESE CONTOUR TEST STRP monitor blood sugars 3x/day TERESE CONTOUR TEST STRP GLUCOSE BLOOD Inactive DETROL LA 4 MG [id number] Take 1 tablet by mouth daily DETROL LA 4 MG IB50E-VKH TOLTERODINE TARTRATE Inactive CEFDINIR 300 MG CAPS by mouth twice a day CEFDINIR 300 MG CAPS 775655 CEFDINIR Inactive AZITHROMYCIN 500 MG SOLR 1 po q day AZITHROMYCIN 500 MG SOLR 894056 AZITHROMYCIN Inactive AMOXICILLIN 500 MG CAPS 2 po BID x 10 days AMOXICILLIN 500 MG CAPS 913469 AMOXICILLIN Inactive Immunizations Vaccine Administration Date Value [...] Fluvirin, Fluarix, Agriflu(>=18 yo)) Fluzone (>3 yrs.) [[id number]] Influenza, seasonal, injectable pneumococcal immunization administered Pneumovax [...] E&M - 8867-4 88 /min Heart rate Diagnostic Results Date Name Value Unit Range Description Lab Report: CBC, CMP, Lipid Panel, TSH, PSA, microalbumin, uric acid - Chemistry sodium, serum 130 mmol/L 977-863 5310/05/01 potassium, serum 5.2 mmol/L 3.5-5.2 chloride, serum [...] 0.40 mg/dL 0.00-1.00 cholesterol, serum 151 mg/dL 366-052 3197/05/01 triglyceride, serum, fasting 356 mg/dL 30-200 HDL [...] HGBA1C - Chemistry sodium, serum 126 mmol/L 897-303 2051/02/26 potassium, serum 4.8 mmol/L 3.5-5.2 chloride, serum [...] DIRECT - Chemistry cholesterol, serum 158 mg/dL 233-124 9894/07/11 triglyceride, serum, fasting 489 mg/dL 30-200 HDL [...] mg/dL Encounters Code Encounter Date Provider Facility CPT-46433 Level 3 Est. Patient 13:19:10 CDT Marvel MARROQUIN [facility] CPT-45594 Level 3 Est. Patient 08:20:05 CDT Alina Castaneda MD [facility]-36595 Level 3 Est. Patient 15:17:18 CDT Alina Castaneda MD [facility]-86148 Level 3 Est. Patient 14:25:36 [employer] [facility]-91006 Level 3 Est. Patient 10:09:15 [employer]RI[employer] [facility]-65853 Level 3 Est. Patient 21:28:43 CDT Alina Castaneda MD [facility]-91954 Level 3 Est. Patient 15:20:11 [facility] 4 Est. Patient 19:08:12 CDT Alina Castaneda MD [facility]-34536 Level 3 Est. Patient 15:06:39 [facility] Est. Patient 17:48:15 CDT Alina Castaneda MD [facility]-79157 Level 3 Est. Patient 14:53:49 CDT Alina Castaneda MD [facility]-74644 Level 3 Est. Patient 09:35:16 CDT Alina Castaneda MD [facility]-47226 Level 3 Est. Patient 12:23:22 CDT Alina Castaneda MD [facility]-32804 Level 3 Est. Patient 16:19:15 CDT Alina Castaneda MD [facility]-36743 Level 3 Est. Patient 21:39:56 [employer] Alina Castaneda MD [facility]-78511 Level 4 Est. Patient 14:12:56 [employer] Alina Castaneda MD [facility]-85329 Level 2 Est. Patient 15:34:57 [employer] Alina Castaneda MD [facility]-93349 Level 3 Est. Patient 12:17:04 [employer] Alina Castaneda MD [facility]-03156 Level 3 Est. Patient 09:18:18 [employer]RI[employer] [facility]-12422 Level 2 Est. Patient 21:50:24 CDT Alina Castaneda MD [facility]42759 Level 3 Est. Patient 09:17:[address] [facility]-04048 Level 4 Est. Patient 18:54:02 CDT Alina Castaneda MD [facility]93135 Level 3 Est. Patient 10:47:10 CDT Alina Castaneda MD [facility]-66040 Level 3 Est. Patient 09:22:[address] [facility]-81855 Level 3 Est. Patient 16:39:[address] [facility]-75652 Level 3 Est. Patient 16:05:16 CDT Alina Castaneda MD [facility]-20013 Level 3 Est. Patient 00:29:15 CDT Alina Castaneda MD [facility]40109 Level 3 Est. Patient 10:49:22 [employer]RI[employer] PL[employer] Marvel [facility]16763 Level 3 Est. Patient 21:30:19 [employer] Alina Castaneda MD [facility]32230 Level 4 Est. Patient 17:04:11 [employer] Marvel Charles [facility] CPT-08718 Level 3 Est. Patient 15:34:11 [employer]RI[employer] PLATER aMrvel Charles [facility] CPT-88014 Level 2 Est. Patient 12:51:58 [employer] Alina Castaneda MD PhD [facility] CPT-53265 Level 3 Est. Patient 13:20:01 [employer] Alina Castaneda MD PhD [facility] CPT-14493 Level 3 Est. Patient 09:23:35 CDT Alina Castaneda MD [facility] Procedures Code Procedure Name Date Entry Date Standard Description CPT-13972 Administration single or combination vaccine inc oral 11 :49:51 CDT CPT-85445 Pneumovax 11:49:51 CDT CPT-71460 Ribs unilateral 2V 12:37:22 [employer] CPT-00919 Chest 2V Frontal and Lat 17:15:26 CDT CPT-09028 Abx/Therapy Injection 18:54:02 CDT CPT-J0696 Rocephin 1000 mg (Ceftriaxone) 16:00:32 CDT CPT-77801 Chest 2V Frontal and Lat 15:26:45 CDT CPT-52755 Chest 2V Frontal and Lat 10:23:27 CDT CPT-33022 Venipuncture Draw Fee 10:11:00 CDT CPT-24255 Administration single or combination vaccine inc oral 11 :56:38 CDT CPT-29441 Influenza split virus > age 3 11:56:38 CDT CPT-19147 Venipuncture Draw Fee 08:49:54 [employer] CPT-04987 EKG Trac and Interp 17:54:19 [employer]
--- OUTSIDE RECORDS SUMMARY | 2018-07-02 20:00 | XMS REPORT | Clinical Summary ---
Author Author Admin, TERELL Organization [facility] Address Unknown Phone Allergies, Adverse Reactions, Alerts [...] PhD Unspecified chest pain ANEMIA 285.9 Active Alian Castaneda MD PhD Anemia, unspecified REACTIVE AIRWAY [...] units with other meals. INSULIN LISPRO (HUMAN) 78965039875 Active Marvel MARROQUIN Active BD INSULIN SYRINGE 28G X 1/2" 1 ML MISC 1 four times per day INSULIN SYRINGE-NEEDLE U-100 38265892336 Active Alina Castaneda MD PhD Active CYCLOBENZAPRINE HCL 10 MG TABS 1 tablet by mouth three times daily, scheduled CYCLOBENZAPRINE HCL 13072396520 Active Alina Castaneda MD PhD Active TOLTERODINE TARTRATE 2 MG TABS 1 pill twice daily, for bladder TOLTERODINE TARTRATE 72497589883 Active Alina Castaneda MD PhD Active DETROL LA 4 MG [id number] Take 1 tablet by mouth daily TOLTERODINE TARTRATE 20340260227 No Longer Active Alina Castaneda MD PhD Active HYDROCODONE-ACETAMINOPHEN 5-325 MG TABS 2 tabs by mouth three times daily as needed for pain HYDROCODONE-ACETAMINOPHEN 99211953020 Active Alina Castaneda MD PhD Active TERESE CONTOUR TEST STRP monitor blood sugars 3x/day GLUCOSE BLOOD 15673796881 No Longer Active Alina Castaneda MD PhD Active EQL TRUETEST TEST STRP Test blood sugar TID GLUCOSE BLOOD 38447696044 No Longer Active Alina Castaneda MD PhD Active FLUTICASONE PROPIONATE 50 MCG/ACT SUSP 2 sprays each nostril qDay x 30 days FLUTICASONE PROPIONATE 75802672745 No Longer Active Alina Castaneda MD PhD Active IBUPROFEN 200 MG TABS 1 Q 6 hr. 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 PRN ACETAMINOPHEN 04944547250 No [facility] Active VERAPAMIL HCL ER 120 MG [id number] 1 pill by mouth twice a day, for headache prevention/control VERAPAMIL HCL 70190782709 Active Alina Castaneda MD PhD Active ORPHENADRINE CITRATE ER 100 MG [id number] 1 every 12 hr. as needed ORPHENADRINE CITRATE 81292971075 No Longer Active Alina Castaneda MD PhD Active NIACIN CR 500 MG CR-TABS 2 qHS NIACIN 74010793092 No Longer Active Alina Castaneda MD PhD Active AMOXICILLIN 500 MG CAPS 2 po BID x 10 days AMOXICILLIN 96171644878 No Longer Active Alina Castaneda MD PhD Active ZYPREXA 7.5 MG TABS 1 at HS OLANZAPINE 44698111922 Active Alina Castaneda MD PhD Active THIOTHIXENE 5 MG CAPS by mouth twice a day THIOTHIXENE 63049423593 Active Alina Castaneda MD PhD Active HYDROCODONE-ACETAMINOPHEN 7.5-325 MG TABS 1 four times a day as needed for pain HYDROCODONE-ACETAMINOPHEN 07370760625 No Longer Active Alina Castaneda MD PhD Active METFORMIN HCL ER 500 MG [id number] Take three tablets by mouth everyday METFORMIN HCL 78027255125 Active Marvel MENDOZAP Active DOXEPIN HCL 10 MG CAPS Take 1 tablet by mouth daily DOXEPIN HCL 70678620540 No Longer Active Salina ROJAS Active NAVANE 10 MG CAPS 1/2 tablet twice a day THIOTHIXENE No Longer Active Salina ROBBINSA Active CYCLOBENZAPRINE HCL 10 MG TABS 1/2 tablet by mouth every 8 hours as needed for muscle spasms CYCLOBENZAPRINE HCL 94392444843 No Longer Active Alina Castaneda MD PhD Active BACTROBAN 2 % CREAM apply to ear and nose twice daily MUPIROCIN CALCIUM 36204619582 No Longer Active Alina Castaneda MD PhD Active HYDROCODONE-ACETAMINOPHEN 5-325 MG TABS take one tablet by mouth every four hours as needed for pain HYDROCODONE-ACETAMINOPHEN 26647688430 No Longer Active Alina Castaneda MD PhD Active ZOLPIDEM TARTRATE 10 MG TABS take at bedtime ZOLPIDEM TARTRATE 11946951774 Active Alina Castaneda MD PhD Active ZYPREXA 5 MG TABS take one tablet by mouth every evening OLANZAPINE 40729861342 No Longer Active Alina Castaneda MD PhD Active ALBUTEROL SULFATE 0.083 % NEBU SOLN one vial per nebulizer TID and PRN cough/ soa ALBUTEROL SULFATE 09156737038 No Longer Active Alina Castaneda MD PhD Active GUAIFENESIN 600 MG [id number]-WDB 1 tablet by mouth twice daily if needed for cough GUAIFENESIN 17879733340 No Longer Active 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 AZITHROMYCIN 500 MG SOLR 1 po q day AZITHROMYCIN 06515595299 No Longer Active Alina Castaneda MD PhD Active METOPROLOL SUCCINATE 100 MG [id number] 1 by mouth daily for blood pressure METOPROLOL SUCCINATE 79033822158 Active Alina Castaneda MD PhD Active PROMETHAZINE-CODEINE 6.25-10 MG/5ML SYRP 1 tsp po q 6 hours prn cough PROMETHAZINE-CODEINE 23386985988 No Longer Active Alina Castaneda MD PhD Active CEFDINIR 300 MG CAPS by mouth twice a day CEFDINIR 80126590639 No Longer Active Alina Castaneda MD PhD Active METFORMIN HCL 500 MG [id number] Take 3 tablets by mouth everyday METFORMIN HCL 35372217538 No Longer Active Alina Castaneda MD PhD Active LEVEMIR 100 UNIT/ML SOLN 90 units SQ qHS INSULIN DETEMIR 05158695636 No Longer Active Marvel MARROQUIN Active TOPROL XL 100 MG [id number]-DSI 1 @ HS METOPROLOL SUCCINATE 80273932349 No Longer Active Marvel MARROQUIN Active ALLOPURINOL 300 MG TABS Take one by mouth daily ALLOPURINOL 62432424938 Active Alina Castaneda MD PhD Active ZYPREXA 10 MG TABS Take one by mouth daily OLANZAPINE 05879651411 No Longer Active Alina Castaneda MD PhD Active NOVOLOG 100 UNIT/ML SOLN 40 units with every meal INSULIN ASPART 60094300913 No Longer Active Alina Castaneda MD PhD Active VERAPAMIL HCL CR 120 MG TAB CR 1 qPM VERAPAMIL HCL 23060230053 No Longer Active Salina Emely [facility] Active ZYPREXA 15 MG TABS Take 1 tablet by mouth daily OLANZAPINE 30303370925 No Longer Active Marvel MARROQUIN Active LISINOPRIL 20 MG TABS 1 BID LISINOPRIL 66424834745 Active Mao Rodriguez MD Active ALBUTEROL SULFATE (2.5 MG/3ML) 0.083% NEBU 1 neb tid and prn cough ALBUTEROL SULFATE 16820896872 No Longer Active Alina Castaneda MD PhD Active FLUVOXAMINE MALEATE 100 MG TABS Take one (1) tablet by mouth am, 1/2 at noon, 1 pm FLUVOXAMINE MALEATE 57183124835 Active Alina Castaneda MD PhD Active TRAVATAN Z 0.004 % SOLN 1 gtt each eye daily TRAVOPROST 78191097333 Active Alina Mendez Active LANTUS 100 UNIT/ML SOLN 60 units sq q hs INSULIN GLARGINE 45251200311 No Longer Active Alina Mendez Active UROXATRAL 10 MG [id number] Take 1 tablet by mouth daily ALFUZOSIN HCL 09844228163 Active Tanya MARROQUIN Active ALBUTEROL SULFATE (2.5 MG/3ML) 0.083% NEBU 1 neb tid and prn cough ALBUTEROL SULFATE (2.5 MG/3ML) 0.083% NEBU 008034 ALBUTEROL SULFATE Inactive ZYPREXA 15 MG TABS Take 1 tablet by mouth daily ZYPREXA 15 MG TABS 818551 OLANZAPINE Inactive VERAPAMIL HCL CR 120 MG TAB CR 1 qPM VERAPAMIL HCL CR 120 MG TAB CR VERAPAMIL HCL Inactive ZYPREXA 10 MG TABS Take one by mouth daily ZYPREXA 10 MG TABS 761152 OLANZAPINE Inactive TOPROL XL 100 MG [id number]-TXP 1 @ HS TOPROL XL 100 MG [id number]-TNF METOPROLOL SUCCINATE Inactive LEVEMIR 100 UNIT/ML SOLN 90 units SQ qHS LEVEMIR 100 UNIT/ML SOLN INSULIN DETEMIR Inactive PROMETHAZINE-CODEINE 6.25-10 MG/5ML SYRP 1 tsp po q 6 hours prn cough PROMETHAZINE-CODEINE 6.25-10 MG/5ML SYRP 832193 PROMETHAZINE- CODEINE Inactive GUAIFENESIN 600 MG LW72P-ILK 1 tablet by mouth twice daily if needed for cough GUAIFENESIN 600 MG [id number] GUAIFENESIN Inactive ALBUTEROL SULFATE 0.083 % NEBU SOLN one vial per nebulizer TID and PRN cough/ soa ALBUTEROL SULFATE 0.083 % NEBU SOLN 905994 ALBUTEROL SULFATE Inactive ZYPREXA 5 MG TABS take one tablet by mouth every evening ZYPREXA 5 MG TABS 434349 OLANZAPINE Inactive HYDROCODONE-ACETAMINOPHEN 5-325 MG TABS take one tablet by mouth every four hours as needed for pain HYDROCODONE-ACETAMINOPHEN 5-325 MG TABS 949132 HYDROCODONE-ACETAMINOPHEN Inactive BACTROBAN 2 % CREAM apply to ear and nose twice daily BACTROBAN 2 % CREAM 009915 MUPIROCIN CALCIUM Inactive CYCLOBENZAPRINE HCL 10 MG TABS 1/2 tablet by mouth every 8 hours as needed for muscle spasms CYCLOBENZAPRINE HCL 10 MG TABS 304468 CYCLOBENZAPRINE HCL Inactive NAVANE 10 MG CAPS 1/2 tablet twice a day NAVANE 10 MG CAPS THIOTHIXENE Inactive DOXEPIN HCL 10 MG CAPS Take 1 tablet by mouth daily DOXEPIN HCL 10 MG CAPS 8503018 DOXEPIN HCL Inactive HYDROCODONE-ACETAMINOPHEN 7.5-325 MG TABS 1 four times a day as needed for pain HYDROCODONE-ACETAMINOPHEN 7.5-325 MG TABS 806195 HYDROCODONE-ACETAMINOPHEN Inactive NIACIN CR 500 MG CR-TABS 2 qHS NIACIN CR 500 MG CR- TABS NIACIN Inactive ORPHENADRINE CITRATE ER 100 MG [id number] 1 every 12 hr. as needed ORPHENADRINE CITRATE ER 100 MG [id number] ORPHENADRINE CITRATE Inactive ACETAMINOPHEN 500 MG TABS 2 Q 6 hr. PRN ACETAMINOPHEN 500 MG TABS 992461 ACETAMINOPHEN Inactive SAPHRIS 5 MG SUBL by mouth twice a day SAPHRIS 5 MG SUBL ASENAPINE MALEATE Inactive NIACIN ER 500 MG CR-TABS 4 qHS (for triglycerides) NIACIN ER 500 MG CR-TABS NIACIN Inactive IBUPROFEN 200 MG TABS 1 Q 6 hr. PRN IBUPROFEN 200 MG TABS 699219 IBUPROFEN Inactive FLUTICASONE PROPIONATE 50 MCG/ACT SUSP 2 sprays each nostril qDay x 30 days FLUTICASONE PROPIONATE 50 MCG/ACT SUSP 794540 FLUTICASONE PROPIONATE Inactive EQL TRUETEST TEST STRP Test blood sugar TID EQL TRUETEST TEST STRP GLUCOSE BLOOD Inactive TERESE CONTOUR TEST STRP monitor blood sugars 3x/day TERESE CONTOUR TEST STRP GLUCOSE BLOOD Inactive DETROL LA 4 MG [id number] Take 1 tablet by mouth daily DETROL LA 4 MG [id number] TOLTERODINE TARTRATE Inactive CEFDINIR 300 MG CAPS by mouth twice a day CEFDINIR 300 MG CAPS 253211 CEFDINIR Inactive AZITHROMYCIN 500 MG SOLR 1 po q day AZITHROMYCIN 500 MG SOLR 319008 AZITHROMYCIN Inactive AMOXICILLIN 500 MG CAPS 2 po BID x 10 days AMOXICILLIN 500 MG CAPS 201295 AMOXICILLIN Inactive Immunizations Vaccine Administration Date Value [...] Fluvirin, Fluarix, Agriflu(>=18 yo)) Fluzone (>3 yrs.) [[id number]] Influenza, seasonal, injectable pneumococcal immunization administered Pneumovax [...] HGBA1C - Chemistry sodium, serum 130 mmol/L 480-451 2443/06/09 potassium, serum 4.0 mmol/L 3.5-5.2 chloride, serum [...] 6.0 mg/dL 2.6-7.2 sodium, serum 130 mmol/L 320-198 7935/05/01 potassium, serum 5.2 mmol/L 3.5-5.2 chloride, serum [...] 0.40 mg/dL 0.00-1.00 cholesterol, serum 151 mg/dL 512-221 0571/05/01 triglyceride, serum, fasting 356 mg/dL 30-200 HDL [...] HGBA1C - Chemistry sodium, serum 126 mmol/L 844-905 9646/02/26 potassium, serum 4.8 mmol/L 3.5-5.2 chloride, serum [...] DIRECT - Chemistry cholesterol, serum 158 mg/dL 562-984 7446/07/11 triglyceride, serum, fasting 489 mg/dL 30-200 HDL [...] mg/dL Encounters Code Encounter Date Provider Facility CPT-22000 Level 3 Est. Patient 13:19:[address] [facility] Level 3 Est. Patient 08:20:05 CDT Alina Castaneda MD [facility]-64517 Level 3 Est. Patient 15:17:18 CDT Alina Castaneda MD PhD [facility]-62745 Level 3 Est. Patient 14:25:36 SURGICAL PATHOLOGIST [facility] CPT-86442 Level 3 Est. Patient 10:09:15 SURGICAL PATHOLOGIST [facility] CPT-52764 Level 3 Est. Patient 21:28:43 CDT Alina Castaneda MD [facility]-06599 Level 3 Est. Patient 15:20:11 CDT [facility] CPT-69772 Level 4 Est. Patient 19:08:12 CDT Alina Castaneda MD PhD [facility]63105 Level 3 Est. Patient 15:06:39 CDT [facility]-74983 Level 4 Est. Patient 17:48:15 CDT Alina Castaneda MD PhD [facility]22977 Level 3 Est. Patient 14:53:49 CDT Alina Castaneda MD [facility]-97958 Level 3 Est. Patient 09:35:16 CDT Alina Castaneda MD [facility]-22163 Level 3 Est. Patient 12:23:22 CDT Alina Castaneda MD [facility]91696 Level 3 Est. Patient 16:19:15 CDT Al[facility]eda [facility]37801 Level 3 Est. Patient 21:39:56 SURGICAL PATHOLOGIST Alina Castaneda MD [facility]-43153 Level 4 Est. Patient 14:12:56 SURGICAL PATHOLOGIST Alina Castaneda MD [facility]-44859 Level 2 Est. Patient 15:34:57 SURGICAL PATHOLOGIST Alina Castnaeda MD [facility]-44470 Level 3 Est. Patient 12:17:04 SURGICAL PATHOLOGIST Alina Castaneda MD [facility]-72450 Level 3 Est. Patient 09:18:18 SURGICAL PATHOLOGIST Marvel Charles [facility]ly named [facility]-12334 Level 2 Est. Patient 21:50:24 CDT Alina Castaneda MD [facility]-46438 Level 3 Est. Patient 09:17:28 CDT Marvel Charles [facility]-09048 Level 4 Est. Patient 18:54:02 CDT Alina Castaneda MD [facility]-88021 Level 3 Est. Patient 10:47:10 CDT Alina Cast[facility]eda MD [facility]16897 Level 3 Est. Patient 09:22:20 CDT Marvel Charles [facility]-25308 Level 3 Est. Patient 16:39:43 [facility] CPT-83853 Level 3 Est. Patient 16:05:16 CDT Alina Castaneda MD [facility] CPT-53734 Level 3 Est. Patient 00:29:15 CDT Alina Castaneda MD [facility]-64239 Level 3 Est. Patient 10:49:22 SURGICAL PATHOLOGIST Marvel [facility]est[facility] CPT-28429 Level 3 Est. Patient 21:30:19 SURGICAL PATHOLOGIST Alina Castaneda MD [facility] CPT-73573 Level 4 Est. Patient 17:04:11 [facility]41379 Level 3 Est. Patient 15:34:11 SURGICAL PATHOLOGIST [facility] CPT-06662 Level 2 Est. Patient 12:51:58 SURGICAL PATHOLOGIST Alina Castaneda MD [facility] CPT-56195 Level 3 Est. Patient 13:20:01 SURGICAL PATHOLOGIST Alina Castaneda MD [facility] CPT-83017 Level 3 Est. Patient 09:23:35 CDT Alina Castaneda MD [facility] Procedures Code Procedure Name Date Entry Date Standard Description CPT-35123 Administration single or combination vaccine inc oral 11 :49:51 CDT CPT-21048 Pneumovax 11:49:51 CDT CPT-84471 Ribs unilateral 2V 12:37:22 SURGICAL PATHOLOGIST CPT-99491 Chest 2V Frontal and Lat 17:15:26 CDT CPT-85818 Abx/Therapy Injection 18:54:02 CDT CPT-J0696 Rocephin 1000 mg (Ceftriaxone) 16:00:32 CDT CPT-78708 Chest 2V Frontal and Lat 15:26:45 CDT CPT-22286 Chest 2V Frontal and Lat 10:23:27 CDT CPT-24393 Venipuncture Draw Fee 10:11:00 CDT CPT-91524 Administration single or combination vaccine inc oral 11 :56:38 CDT CPT-50168 Influenza split virus > age 3 11:56:38 CDT CPT-49728 Venipuncture Draw Fee 08:49:54 SURGICAL PATHOLOGIST CPT-07584 EKG Trac and Interp 17:54:19 SURGICAL PATHOLOGIST
--- OUTSIDE RECORDS SUMMARY | 2018-07-02 20:01 | XMS REPORT | Clinical Summary ---
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 Alina Castaneda MD PhD Recurrent isolated sleep paralysis SPECIAL SCREENING FOR MALIGNANT NEOPLASM OF PROSTATE V76.44 Resolved Alina Castaneda MD PhD Screening for malignant neoplasms of prostate Hypoglycemia 251.2 Resolved Alina Castaneda MD PhD Hypoglycemia, unspecified Diabetes mellitus, type II 250.00 Active Mallashondaeh Bertrandari IT SECURITY ARCHITECT Diabetes mellitus without mention of complication, type [...] 5 days, for cold sore outbreak ACYCLOVIR 49480821932 No Longer Active Alina Castaneda MD PhD Active PENICILLIN V POTASSIUM 500 MG TABS 1 pill by mouth three times daily PENICILLIN V POTASSIUM 99944308730 No Longer Active Alina Castaneda MD PhD Active MORPHINE SULFATE 30 MG TABS 1 pill by mouth nightly, for pain MORPHINE SULFATE 56550337354 Active Alina Castaneda MD PhD Active LATUDA 80 MG TABS 1 tab by mouth every evening LURASIDONE HCL 83306657846 Active Alina Castaneda MD PhD Active UROXATRAL 10 MG PS43M-PSO Take 1 tablet by mouth daily ALFUZOSIN HCL 06522607475 No Longer Active Alina Castaneda MD PhD Active THIOTHIXENE 5 MG CAPS by mouth twice a day THIOTHIXENE 24256339131 No Longer Active Alina Castaneda MD PhD Active ZYPREXA 7.5 MG TABS 1 at HS OLANZAPINE 13670698085 No Longer Active Alina Castaneda MD PhD Active HUMALOG 100 UNIT/ML SOLN Take 20 units with breakfast, 10u with lunch and suppetr. INSULIN LISPRO (HUMAN) 93456407745 Active Marvel MARROQUIN Active LEVEMIR 100 UNIT/ML SOLN Take 70 u at 7-8pm INSULIN DETEMIR 93535079138 Active Marvel Mackenzieglari IT SECURITY ARCHITECT Active BD INSULIN SYRINGE 28G X 1/2" 1 ML MISC 1 four times per day INSULIN SYRINGE-NEEDLE U-100 94947278189 Active Marvel Mackenzieglari IT SECURITY ARCHITECT Active CYCLOBENZAPRINE HCL 10 MG TABS 1 tablet by mouth three times daily, scheduled CYCLOBENZAPRINE HCL 87653392417 Active Alina Castaneda MD PhD Active TOLTERODINE TARTRATE 2 MG TABS 1 pill twice daily, for bladder TOLTERODINE TARTRATE 82236625902 Active Alina Castaneda MD PhD Active DETROL LA 4 MG [id number]-RMC Take 1 tablet by mouth daily TOLTERODINE TARTRATE 42192099477 No Longer Active Alina Castaneda MD PhD Active HYDROCODONE-ACETAMINOPHEN 5-325 MG TABS 2 tabs by mouth three times daily as needed for pain HYDROCODONE-ACETAMINOPHEN 61023466728 Active Rhett Luther DO Active TERESE CONTOUR TEST STRP monitor blood sugars 3x/day GLUCOSE BLOOD 08489767852 No Longer Active Alina Castaneda MD PhD Active EQL TRUETEST TEST STRP Test blood sugar TID GLUCOSE BLOOD 23747163933 No Longer Active Alina Castaneda MD PhD Active FLUTICASONE PROPIONATE 50 MCG/ACT SUSP 2 sprays each nostril qDay x 30 days FLUTICASONE PROPIONATE 01567426901 No Longer Active Alina Castaneda MD PhD Active IBUPROFEN 200 MG TABS 1 Q 6 hr. PRN IBUPROFEN 34011625079 No Longer Active Alina Castaneda MD PhD Active NIACIN ER 500 MG CR-TABS 4 qHS (for triglycerides) NIACIN 41251419955 No Longer Active Alina Castaneda MD PhD Active TRUETEST TEST STRP check sugars 4x/day GLUCOSE BLOOD 87484413624 Active Marvel MENDOZAP Active ALFUZOSIN HCL ER 10 MG [id number]-GWI 1 tablet daily ALFUZOSIN HCL 63677966420 Active Vanessa Hickey MD Active CLONAZEPAM 1 MG TABS 1 pill by mouth three times daily CLONAZEPAM 25801648115 Active Alina Castaneda MD PhD Active LOVAZA 1 GM CAPS 4 daily (for triglycerides) [id number] ETHYL ESTERS 76786610598 Active Alina Castaneda MD PhD Active SAPHRIS 5 MG SUBL by mouth twice a day ASENAPINE MALEATE 01257434561 No Longer Active Marvel MARROQUIN Active ACETAMINOPHEN 500 MG TABS 2 Q 6 hr. PRN ACETAMINOPHEN 43269776160 No Longer Active Marvel MARROQUIN Active VERAPAMIL HCL ER 120 MG QV25R-CUD 1 pill by mouth twice a day, for headache prevention/control VERAPAMIL HCL 21663290576 Active Alina Castaneda MD PhD Active ORPHENADRINE CITRATE ER 100 MG [id number] 1 every 12 hr. as needed ORPHENADRINE CITRATE 81759991021 No Longer Active Alina Castaneda MD PhD Active NIACIN CR 500 MG CR-TABS 2 qHS NIACIN 63494128675 No Longer Active Alina Castaneda MD PhD Active AMOXICILLIN 500 MG CAPS 2 po BID x 10 days AMOXICILLIN 59309210457 No Longer Active Alina Castaneda MD PhD Active HYDROCODONE-ACETAMINOPHEN 7.5-325 MG TABS 1 four times a day as needed for pain HYDROCODONE-ACETAMINOPHEN 25754551872 No Longer Active Alina Castaneda MD PhD Active METFORMIN HCL ER 500 MG LO22T-RBA Take three tablets by mouth everyday METFORMIN HCL 37461577423 Active Marvel MARROQUIN Active DOXEPIN HCL 10 MG CAPS Take 1 tablet by mouth daily DOXEPIN HCL 39304154533 No Longer Active Salina ROJAS Active NAVANE 10 MG CAPS 1/2 tablet twice a day THIOTHIXENE No Longer Active Salina ROJAS Active CYCLOBENZAPRINE HCL 10 MG TABS 1/2 tablet by mouth every 8 hours as needed for muscle spasms CYCLOBENZAPRINE HCL 82749819975 No Longer Active Alina Castaneda MD PhD Active BACTROBAN 2 % CREAM apply to ear and nose twice daily MUPIROCIN CALCIUM 94298416037 No Longer Active Alina Castaneda MD PhD Active HYDROCODONE-ACETAMINOPHEN 5-325 MG TABS take one tablet by mouth every four hours as needed for pain HYDROCODONE-ACETAMINOPHEN 41568461167 No Longer Active Alina Castaneda MD PhD Active ZOLPIDEM TARTRATE 10 MG TABS take at bedtime ZOLPIDEM TARTRATE 82825862077 Active Alina Castaneda MD PhD Active ZYPREXA 5 MG TABS take one tablet by mouth every evening OLANZAPINE 61750386149 No Longer Active Alina Castaneda MD PhD Active ALBUTEROL SULFATE 0.083 % NEBU SOLN one vial per nebulizer TID and PRN cough/ soa ALBUTEROL SULFATE 95045827815 No Longer Active Alina Castaneda MD PhD Active GUAIFENESIN 600 MG CR33W-BCY 1 tablet by mouth twice daily if needed for cough GUAIFENESIN 90932001445 No Longer Active Marvel MENDOZAP Active AZITHROMYCIN 500 MG SOLR 1 po q day AZITHROMYCIN 58868406601 No Longer Active Alina Castaneda MD PhD Active METOPROLOL SUCCINATE 100 MG OC67E-AYS 1 by mouth daily for blood pressure METOPROLOL SUCCINATE 59168565468 Active Alina Castaneda MD PhD Active PROMETHAZINE-CODEINE 6.25-10 MG/5ML SYRP 1 tsp po q 6 hours prn cough PROMETHAZINE-CODEINE 22899265932 No Longer Active Alina Castaneda MD PhD Active CEFDINIR 300 MG CAPS by mouth twice a day CEFDINIR 74429310401 No Longer Active Alina Castaneda MD PhD Active METFORMIN HCL 500 MG SR40V-SHR Take 3 tablets by mouth everyday METFORMIN HCL 41028315962 No Longer Active Alina Castaneda MD PhD Active LEVEMIR 100 UNIT/ML SOLN 90 units SQ qHS INSULIN DETEMIR 97888040456 No Longer Active Marvel MARROQUIN Active TOPROL XL 100 MG OI91K-HZX 1 @ HS METOPROLOL SUCCINATE 51471435020 No Longer Active Marvel MARROQUIN Active ALLOPURINOL 300 MG TABS Take one by mouth daily ALLOPURINOL 32289947632 Active Alina Castaneda MD PhD Active ZYPREXA 10 MG TABS Take one by mouth daily OLANZAPINE 77647129835 No Longer Active Alina Castaneda MD PhD Active NOVOLOG 100 UNIT/ML SOLN 40 units with every meal INSULIN ASPART 93324130519 No Longer Active Alina Castaneda MD PhD Active VERAPAMIL HCL CR 120 MG TAB CR 1 qPM VERAPAMIL HCL 75820971026 No Longer Active Salina ROJAS Active ZYPREXA 15 MG TABS Take 1 tablet by mouth daily OLANZAPINE 42377056596 No Longer Active Marvel MARROQUIN Active LISINOPRIL 20 MG TABS 1 BID LISINOPRIL 36846163176 Active Alina Castaneda MD PhD Active ALBUTEROL SULFATE (2.5 MG/3ML) 0.083% NEBU 1 neb tid and prn cough ALBUTEROL SULFATE 73310736903 No Longer Active Alina Castaneda MD PhD Active FLUVOXAMINE MALEATE 100 MG TABS Take one (1) tablet by mouth am, 1/2 at noon, 1 pm FLUVOXAMINE MALEATE 07087782270 Active Alina Castaneda MD PhD Active TRAVATAN Z 0.004 % SOLN 1 gtt each eye daily TRAVOPROST 33376683348 Active CRYSTAL Suarez Active LANTUS 100 UNIT/ML SOLN 60 units sq q hs INSULIN GLARGINE 65705800202 No Longer Active CRYSTAL Suarez Active ALBUTEROL SULFATE (2.5 MG/3ML) 0.083% NEBU 1 neb tid and prn cough ALBUTEROL SULFATE (2.5 MG/3ML) 0.083% NEBU 963251 ALBUTEROL SULFATE Inactive ZYPREXA 15 MG TABS Take 1 tablet by mouth daily ZYPREXA 15 MG TABS 068069 OLANZAPINE Inactive VERAPAMIL HCL CR 120 MG TAB CR 1 qPM VERAPAMIL HCL CR 120 MG TAB CR VERAPAMIL HCL Inactive ZYPREXA 10 MG TABS Take one by mouth daily ZYPREXA 10 MG TABS 364498 OLANZAPINE Inactive TOPROL XL 100 MG EM38T-FSI 1 @ HS TOPROL XL 100 MG IN97O-YTO METOPROLOL SUCCINATE Inactive LEVEMIR 100 UNIT/ML SOLN 90 units SQ qHS LEVEMIR 100 UNIT/ML SOLN INSULIN DETEMIR Inactive PROMETHAZINE-CODEINE 6.25-10 MG/5ML SYRP 1 tsp po q 6 hours prn cough PROMETHAZINE-CODEINE 6.25-10 MG/5ML SYRP 477240 PROMETHAZINE- CODEINE Inactive GUAIFENESIN 600 MG NA48D-VDX 1 tablet by mouth twice daily if needed for cough GUAIFENESIN 600 MG UV27M-AXU GUAIFENESIN Inactive ALBUTEROL SULFATE 0.083 % NEBU SOLN one vial per nebulizer TID and PRN cough/ soa ALBUTEROL SULFATE 0.083 % NEBU SOLN 566414 ALBUTEROL SULFATE Inactive ZYPREXA 5 MG TABS take one tablet by mouth every evening ZYPREXA 5 MG TABS 852784 OLANZAPINE Inactive HYDROCODONE-ACETAMINOPHEN 5-325 MG TABS take one tablet by mouth every four hours as needed for pain HYDROCODONE-ACETAMINOPHEN 5-325 MG TABS 237086 HYDROCODONE-ACETAMINOPHEN Inactive BACTROBAN 2 % CREAM apply to ear and nose twice daily BACTROBAN 2 % CREAM 298746 MUPIROCIN CALCIUM Inactive CYCLOBENZAPRINE HCL 10 MG TABS 1/2 tablet by mouth every 8 hours as needed for muscle spasms CYCLOBENZAPRINE HCL 10 MG TABS 557977 CYCLOBENZAPRINE HCL Inactive NAVANE 10 MG CAPS 1/2 tablet twice a day NAVANE 10 MG CAPS THIOTHIXENE Inactive DOXEPIN HCL 10 MG CAPS Take 1 tablet by mouth daily DOXEPIN HCL 10 MG CAPS 9189280 DOXEPIN HCL Inactive HYDROCODONE-ACETAMINOPHEN 7.5-325 MG TABS 1 four times a day as needed for pain HYDROCODONE-ACETAMINOPHEN 7.5-325 MG TABS 346964 HYDROCODONE-ACETAMINOPHEN Inactive NIACIN CR 500 MG CR-TABS 2 qHS NIACIN CR 500 MG CR- TABS NIACIN Inactive ORPHENADRINE CITRATE ER 100 MG TT90C-XSB 1 every 12 hr. as needed ORPHENADRINE CITRATE ER 100 MG TF50F-UMM ORPHENADRINE CITRATE Inactive ACETAMINOPHEN 500 MG TABS 2 Q 6 hr. PRN ACETAMINOPHEN 500 MG TABS 472212 ACETAMINOPHEN Inactive SAPHRIS 5 MG SUBL by mouth twice a day SAPHRIS 5 MG SUBL ASENAPINE MALEATE Inactive NIACIN ER 500 MG CR-TABS 4 qHS (for triglycerides) NIACIN ER 500 MG CR-TABS NIACIN Inactive IBUPROFEN 200 MG TABS 1 Q 6 hr. PRN IBUPROFEN 200 MG TABS 583978 IBUPROFEN Inactive FLUTICASONE PROPIONATE 50 MCG/ACT SUSP 2 sprays each nostril qDay x 30 days FLUTICASONE PROPIONATE 50 MCG/ACT SUSP 110344 FLUTICASONE PROPIONATE Inactive EQL TRUETEST TEST STRP Test blood sugar TID EQL TRUETEST TEST STRP GLUCOSE BLOOD Inactive TERESE CONTOUR TEST STRP monitor blood sugars 3x/day TERESE CONTOUR TEST STRP GLUCOSE BLOOD Inactive DETROL LA 4 MG OR07F-HLE Take 1 tablet by mouth daily DETROL LA 4 MG HF98V-UTH TOLTERODINE TARTRATE Inactive ZYPREXA 7.5 MG TABS 1 at HS ZYPREXA 7.5 MG TABS 581817 OLANZAPINE Inactive THIOTHIXENE 5 MG CAPS by mouth twice a day THIOTHIXENE 5 MG CAPS 224551 THIOTHIXENE Inactive UROXATRAL 10 MG DK22P-DUX Take 1 tablet by mouth daily UROXATRAL 10 MG [id number]-OIT ALFUZOSIN HCL Inactive ACYCLOVIR 400 MG ORAL TABS 1 pill three times daily x 5 days, for cold sore outbreak ACYCLOVIR 400 MG ORAL TABS 381203 ACYCLOVIR Inactive CEFDINIR 300 MG CAPS by mouth twice a day CEFDINIR 300 MG CAPS 110761 CEFDINIR Inactive AZITHROMYCIN 500 MG SOLR 1 po q day AZITHROMYCIN 500 MG SOLR 773132 AZITHROMYCIN Inactive AMOXICILLIN 500 MG CAPS 2 po BID x 10 days AMOXICILLIN 500 MG CAPS 534018 AMOXICILLIN Inactive PENICILLIN V POTASSIUM 500 MG TABS 1 pill by mouth three times daily PENICILLIN V POTASSIUM 500 MG TABS 527767 PENICILLIN V POTASSIUM Inactive Immunizations Vaccine Administration [...] Fluvirin, Fluarix, Agriflu(>=18 yo)) Fluzone (>3 yrs.) [CDZ030] Influenza, seasonal, injectable pneumococcal immunization administered Pneumovax 23 [CVX33] pneumococcal polysaccharide vaccine, 23 valent Vital Signs Date Name Value Unit Range Description blood pressure, diastolic - 8462-4 62 mm[Hg] [...] HGBA1C - Chemistry sodium, serum 130 mmol/L 656-130 3892/06/09 potassium, serum 4.0 mmol/L 3.5-5.2 chloride, serum 92 mmol/L 98-107 carbon dioxide, venous blood 22.1 mmol/L 21.0-32.0 blood glucose 60 mg/dL 65-110 calcium, serum 9.5 mg/dL 8.5-10.1 urea nitrogen, blood 14 mg/dL 7-18 creatinine, serum 1.30 mg/dL 0.60-1.30 hemoglobin A1C, blood, as % of total hemoglobin 6.0 % 4.3-6.0 sodium, serum 131 mmol/L 877-651 3387/12/30 potassium, serum 5.0 mmol/L 3.5-5.2 chloride, serum [...] 6.0 mg/dL 2.6-7.2 sodium, serum 130 mmol/L 798-433 0861/05/01 potassium, serum 5.2 mmol/L 3.5-5.2 chloride, serum [...] 0.40 mg/dL 0.00-1.00 cholesterol, serum 151 mg/dL 650-671 2325/05/01 triglyceride, serum, fasting 356 mg/dL 30-200 HDL [...] Panel - Chemistry sodium, serum 127 mmol/L 465-186 6340/10/27 potassium, serum 4.1 mmol/L 3.5-5.2 chloride, serum [...] HGBA1C - Chemistry sodium, serum 126 mmol/L 090-180 2145/02/26 potassium, serum 4.8 mmol/L 3.5-5.2 chloride, serum [...] mg/dL Encounters Code Encounter Date Provider Facility CPT-70142 Level 3 Est. Patient 13:34:47 HANDLE BAR ASSEMBLER Alina Castaneda MD PhD [facility] CPT-98153 Level 3 Est. Patient 19:52:08 HANDLE BAR ASSEMBLER Alina Castaneda MD PhD [facility] CPT-54323 Level 3 Est. Patient 10:01:51 HANDLE BAR ASSEMBLER Marvel MARROQUIN [facility] CPT-33242 Level 3 Est. Patient 21:54:06 CDT Vanessa Hickey MD [facility]-90053 Level 3 Est. Patient 08:54:46 CDT Alina Castaneda MD [id number] Level 3 Est. [facility] 09:32:[facility]45338 Level 3 Est. Patient 12:02:49 CDT Alina Castaneda MD [facility]21186 Level 3 Est. Patient 19:17:33 CDT Alina Castaneda MD [facility]14046 Level 3 Est. Patient 13:19:10 CDT Marvel [facility]-94800 Level 3 Est. Patient 08:20:05 CDT Alina Castaneda MD [id number] Level 3 Est. Patient 15:17:18 CDT Alina Castaneda MD [facility]-50446 Level 3 Est. Patient 14:25:36 HANDLE BAR ASSEMBLER [facility]-76316 Level 3 Est. Patient 10:09:15 HANDLE BAR ASSEMBLER [facility] Ar[facility]-76897 Level 3 Est. Patient 21:28:43 CDT Alina Castaneda MD [id number] Level 3 Est. Patient 15:20:11 CDT Marvel [facility]-65869 Level 4 Est. Patient 19:08:12 CDT Alina Castaneda MD [id number] Level 3 Est. [facility]06[facility]-57348 Level 4 Est. Patient 17:48:15 CDT Alina Castaneda MD [facility]-82220 Level 3 Est. Patient 14:53:49 CDT Alina Castaneda MD [facility]-09411 Level 3 Est. Patient 09:35:16 CDT Alina Castaneda MD [facility]-40277 Level 3 Est. Patient 12:23:22 CDT Alina Castaneda MD [facility]-84504 Level 3 Est. Patient 16:19:15 CDT Alina Castaneda MD [facility]-19774 Level 3 Est. Patient 21:39:56 HANDLE BAR ASSEMBLER Alina Castaneda MD [facility]-19616 Level 4 Est. Patient 14:12:56 HANDLE BAR ASSEMBLER Alina Castaneda MD [facility]-90060 Level 2 Est. Patient 15:34:57 HANDLE BAR ASSEMBLER Alina Castaneda MD [facility]-92803 Level 3 Est. Patient 12:17:04 HANDLE BAR ASSEMBLER Alina Castaneda MD [facility]-45606 Level 3 Est. Patient 09:18:18 HANDLE BAR ASSEMBLER Marvel [facility]-07131 Level 2 Est. Patient 21:50:24 CDT Alina Castaneda MD [facility]-59376 Level 3 Est. Patient 09:17:28 CDT Marvel [facility]-29414 Level 4 Est. Patient 18:54:02 CDT Alina Castaneda MD [facility]-59294 Level 3 Est. Patient 10:47:10 CDT Alina Castaneda MD [facility]-31075 Level 3 Est. Patient 09:22:20 CDT Marvel [facility] CPT-62677 Level 3 Est. Patient 16:39:43 CDT [facility] Ar[facility] CPT-05134 Level 3 Est. Patient 16:05:16 CDT Alina Castaneda MD [facility] CPT-30635 Level 3 Est. Patient 00:29:15 CDT Alina Castaneda MD [facility]-28071 Level 3 Est. Patient 10:49:22 HANDLE BAR ASSEMBLER Marvel Thurstonestela [facility] CPT-15495 Level 3 Est. Patient 21:30:19 HANDLE BAR ASSEMBLER Alina Castaneda MD [facility] CPT-13566 Level 4 Est. Patient 17:04:11 HANDLE BAR ASSEMBLER [facility]58278 Level 3 Est. Patient 15:34:11 HANDLE BAR ASSEMBLER [facility] CPT-09703 Level 2 Est. Patient 12:51:58 HANDLE BAR ASSEMBLER Alina Castaneda MD [facility] CPT-23059 Level 3 Est. Patient 13:20:01 HANDLE BAR ASSEMBLER Alina Castaneda MD [facility] CPT-07416 Level 3 Est. Patient 09:23:35 CDT Alina Castaneda MD [facility] Procedures Code Procedure Name Date Entry Date Standard Description CPT-95947 Bladder Scan 21:54:06 CDT CPT-G0008 Administration of Influenza Virus Vaccine 13:05:26 CDT CPT-59317 Fluzone Quadrivalent Intramuscular Suspension 0.5 ML 13: 05:26 CDT CPT-54298 Administration single or combination vaccine inc oral 11 :49:51 CDT CPT-40775 Pneumovax 11:49:51 CDT CPT-22284 Ribs unilateral 2V 12:37:22 HANDLE BAR ASSEMBLER CPT-67399 Chest 2V Frontal and Lat 17:15:26 CDT CPT-31307 Abx/Therapy Injection 18:54:02 CDT CPT-J0696 Rocephin 1000 mg (Ceftriaxone) 16:00:32 CDT CPT-22688 Chest 2V Frontal and Lat 15:26:45 CDT CPT-02639 Chest 2V Frontal and Lat 10:23:27 CDT CPT-57740 Venipuncture Draw Fee 10:11:00 CDT CPT-43480 Administration single or combination vaccine inc oral 11 :56:38 CDT CPT-85847 Influenza split virus > age 3 11:56:38 CDT CPT-80036 Venipuncture Draw Fee 08:49:54 HANDLE BAR ASSEMBLER CPT-62631 EKG Trac and Interp 17:54:19 HANDLE BAR ASSEMBLER
--- OUTSIDE RECORDS SUMMARY | 2018-07-02 20:03 | XMS REPORT | Clinical Summary ---
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 Active Alina Castaneda MD PhD Recurrent isolated sleep paralysis SPECIAL SCREENING FOR MALIGNANT NEOPLASM OF PROSTATE V76.44 Resolved Alina Castaneda MD PhD Screening for malignant neoplasms of prostate Hypoglycemia 251.2 Resolved Alina Castaneda MD PhD Hypoglycemia, unspecified Diabetes mellitus, type II 250.00 Active Mallashondaeh Bertrandari MOTEL MANAGER Diabetes mellitus without mention of complication, [...] MD PhD CHEST COUGH ICD-786.2 Inactive Alina Castnaeda MD PhD SINUSITIS, ACUTE ICD-461.9 Inactive Alina [...] Instruction VERAPAMIL HCL ER 180 MG ORAL CR-TABS 1 pill by mouth twice daily, for migraine prevention VERAPAMIL HCL 26291037255 Active Alina Castaneda MD PhD Active CYCLOBENZAPRINE HCL 10 MG TABS 1 tablet by mouth three times daily, scheduled CYCLOBENZAPRINE HCL 68370778148 No Longer Active Alina Castaneda MD PhD Active HUMALOG 100 UNIT/ML SOLN Take 20 units with breakfast, 10u with lunch and suppetr. INSULIN LISPRO (HUMAN) 74446371498 No Longer Active Alina Castaneda MD PhD Active ACCU-CHEK ROSA INVITR STRP use strips with device to check blood sugars 3 times daily GLUCOSE BLOOD 90480497420 Active Alina Castaneda MD PhD Active ACCU-CHEK ROSA UZMA Use device to check blood sugars BLOOD GLUCOSE MONITORING SUPPL 64361395997 Active Alina Castaneda MD PhD Active TRUETEST TEST STRP check sugars 4x/day GLUCOSE BLOOD 42591338031 No Longer Active Alina Castaneda MD PhD Active MORPHINE SULFATE 30 MG TABS 1 pill by mouth twice daily, for pain MORPHINE SULFATE 26527151315 Active Alina Castaneda MD PhD Active ACYCLOVIR 400 MG ORAL TABS 1 pill three times daily x 5 days, for cold sore outbreak ACYCLOVIR 95294926635 No Longer Active Alina Castaneda MD PhD Active PENICILLIN V POTASSIUM 500 MG TABS 1 pill by mouth three times daily PENICILLIN V POTASSIUM 98807680413 No Longer Active Alina Castaneda MD PhD Active LATUDA 80 MG TABS 1 tab by mouth every evening LURASIDONE HCL 00091985901 Active Alina Castaneda MD PhD Active UROXATRAL 10 MG [id number]-NLX Take 1 tablet by mouth daily ALFUZOSIN HCL 31721365181 No Longer Active Alina Castaneda MD PhD Active THIOTHIXENE 5 MG CAPS by mouth twice a day THIOTHIXENE 38369000643 No Longer Active Alina Castaneda MD PhD Active ZYPREXA 7.5 MG TABS 1 at HS OLANZAPINE 53675645590 No Longer Active Alina Castaneda MD PhD Active LEVEMIR 100 UNIT/ML SOLN Take 70 u at 7-8pm INSULIN DETEMIR 82588380460 Active Mallashondaeh Ziglari MOTEL MANAGER Active BD INSULIN SYRINGE 28G X 1/2" 1 ML MISC 1 four times per day INSULIN SYRINGE-NEEDLE U-100 12073025382 Active Maljohn Ziglari MOTEL MANAGER Active TOLTERODINE TARTRATE 2 MG TABS 1 pill twice daily, for bladder TOLTERODINE TARTRATE 90344508843 Active Alina Castaneda MD PhD Active DETROL LA 4 MG [id number] Take 1 tablet by mouth daily TOLTERODINE TARTRATE 77080720794 No Longer Active Alina Castaneda MD PhD Active HYDROCODONE-ACETAMINOPHEN 5-325 MG TABS 2 tabs by mouth three times daily as needed for pain HYDROCODONE-ACETAMINOPHEN 37433680118 Active Alina Castaneda MD PhD Active TERESE CONTOUR TEST STRP monitor blood sugars 3x/day GLUCOSE BLOOD 10848297746 No Longer Active Alina Castaneda MD PhD Active EQL TRUETEST TEST STRP Test blood sugar TID GLUCOSE BLOOD 19813105135 No Longer Active Alina Castaneda MD PhD Active FLUTICASONE PROPIONATE 50 MCG/ACT SUSP 2 sprays each nostril qDay x 30 days FLUTICASONE PROPIONATE 69493445280 No Longer Active Alina Castaneda MD PhD Active IBUPROFEN 200 MG TABS 1 Q 6 hr. PRN IBUPROFEN 11721911320 No Longer Active Alina Castaneda MD PhD Active NIACIN ER 500 MG CR-TABS 4 qHS (for triglycerides) NIACIN 48748453485 No Longer Active Alina Castaneda MD PhD Active ALFUZOSIN HCL ER 10 MG [id number] 1 tablet daily ALFUZOSIN HCL 19212127222 Active Vanessa Hickey MD Active CLONAZEPAM 1 MG TABS 1 pill by mouth three times daily CLONAZEPAM 89481489759 Active Alina Castaneda MD PhD Active LOVAZA 1 GM CAPS 4 daily (for triglycerides) ATAPU-6-OXJU ETHYL ESTERS 54813322470 Active Alina Castaneda MD PhD Active SAPHRIS 5 MG SUBL by mouth twice a day ASENAPINE MALEATE 59379139535 No Longer Active Marvel Thurstonari MOTEL MANAGER Active ACETAMINOPHEN 500 MG TABS 2 Q 6 hr. PRN ACETAMINOPHEN 33231660352 No Longer Active Marvel Mackenzieglari MOTEL MANAGER Active ORPHENADRINE CITRATE ER 100 MG WE18G-NAM 1 every 12 hr. as needed ORPHENADRINE CITRATE 01787371552 No Longer Active Alina Castaneda MD PhD Active NIACIN CR 500 MG CR-TABS 2 qHS NIACIN 80082908813 No Longer Active Alina Castaneda MD PhD Active AMOXICILLIN 500 MG CAPS 2 po BID x 10 days AMOXICILLIN 50540412171 No Longer Active Alina Castaneda MD PhD Active HYDROCODONE-ACETAMINOPHEN 7.5-325 MG TABS 1 four times a day as needed for pain HYDROCODONE-ACETAMINOPHEN 19213181928 No Longer Active Alina Castaneda MD PhD Active METFORMIN HCL ER 500 MG HR56O-MQN Take three tablets by mouth everyday METFORMIN HCL 79970594897 Active Maljohn Ziglari MOTEL MANAGER Active DOXEPIN HCL 10 MG CAPS Take 1 tablet by mouth daily DOXEPIN HCL 94441873552 No Longer Active [facility] Active NAVANE 10 MG CAPS 1/2 tablet twice a day THIOTHIXENE No Longer Active Salina Han A Active CYCLOBENZAPRINE HCL 10 MG TABS 1/2 tablet by mouth every 8 hours as needed for muscle spasms CYCLOBENZAPRINE HCL 52450771620 No Longer Active Alina Castaneda MD PhD Active BACTROBAN 2 % CREAM apply to ear and nose twice daily MUPIROCIN CALCIUM 34881579770 No Longer Active Alina Castaneda MD PhD Active HYDROCODONE-ACETAMINOPHEN 5-325 MG TABS take one tablet by mouth every four hours as needed for pain HYDROCODONE-ACETAMINOPHEN 60756593875 No Longer Active Alina Castaneda MD PhD Active ZOLPIDEM TARTRATE 10 MG TABS take at bedtime ZOLPIDEM TARTRATE 55422848549 Active Alina Castaneda MD PhD Active ZYPREXA 5 MG TABS take one tablet by mouth every evening OLANZAPINE 87577603398 No Longer Active Alina Casatneda MD PhD Active ALBUTEROL SULFATE 0.083 % NEBU SOLN one vial per nebulizer TID and PRN cough/ soa ALBUTEROL SULFATE 43301298959 No Longer Active Alina Castaneda MD PhD Active GUAIFENESIN 600 MG BV78R-IVA 1 tablet by mouth twice daily if needed for cough GUAIFENESIN 63150469286 No Longer Active Marvel Charles MOTEL MANAGER Active AZITHROMYCIN 500 MG SOLR 1 po q day AZITHROMYCIN 22584133227 No Longer Active Alina Castaneda MD PhD Active METOPROLOL SUCCINATE 100 MG HD22I-MYM 1 by mouth daily for blood pressure METOPROLOL SUCCINATE 09392214682 Active Alina Castaneda MD PhD Active PROMETHAZINE-CODEINE 6.25-10 MG/5ML SYRP 1 tsp po q 6 hours prn cough PROMETHAZINE-CODEINE 68264255113 No Longer Active Alina Castaneda MD PhD Active CEFDINIR 300 MG CAPS by mouth twice a day CEFDINIR 75501837910 No Longer Active Alina Castaneda MD PhD Active METFORMIN HCL 500 MG CI28E-RYD Take 3 tablets by mouth everyday METFORMIN HCL 85399409482 No Longer Active Alina Castaneda MD PhD Active LEVEMIR 100 UNIT/ML SOLN 90 units SQ qHS INSULIN DETEMIR 09111460480 No Longer Active Marvel MARROQUIN Active TOPROL XL 100 MG JN19A-HCI 1 @ HS METOPROLOL SUCCINATE 37907674478 No Longer Active Marvel MARROQUIN Active ALLOPURINOL 300 MG TABS Take one by mouth daily ALLOPURINOL 47843133190 Active Alina Castaneda MD PhD Active ZYPREXA 10 MG TABS Take one by mouth daily OLANZAPINE 22446315699 No Longer Active Alina Castaneda MD PhD Active NOVOLOG 100 UNIT/ML SOLN 40 units with every meal INSULIN ASPART 64676912995 No Longer Active Alina Castaneda MD PhD Active VERAPAMIL HCL CR 120 MG TAB CR 1 qPM VERAPAMIL HCL 26662405094 No Longer Active [facility] Active ZYPREXA 15 MG TABS Take 1 tablet by mouth daily OLANZAPINE 44929643748 No Longer Active Marvel MARROQUIN Active LISINOPRIL 20 MG TABS 1 BID LISINOPRIL 84496609856 Active Alina Castaneda MD PhD Active ALBUTEROL SULFATE (2.5 MG/3ML) 0.083% NEBU 1 neb tid and prn cough ALBUTEROL SULFATE 14671852631 No Longer Active Alina Castaneda MD PhD Active FLUVOXAMINE MALEATE 100 MG TABS Take one (1) tablet by mouth am, 1/2 at noon, 1 pm FLUVOXAMINE MALEATE 88701879485 Active Ailna Castaneda MD PhD Active TRAVATAN Z 0.004 % SOLN 1 gtt each eye daily TRAVOPROST 78244220321 Active Alina Mendez RMA Active LANTUS 100 UNIT/ML SOLN 60 units sq q hs INSULIN GLARGINE 11549987799 No Longer Active Alina Mendez RMA Active ALBUTEROL SULFATE (2.5 MG/3ML) 0.083% NEBU 1 neb tid and prn cough ALBUTEROL SULFATE (2.5 MG/3ML) 0.083% NEBU 058736 ALBUTEROL SULFATE Inactive ZYPREXA 15 MG TABS Take 1 tablet by mouth daily ZYPREXA 15 MG TABS 667229 OLANZAPINE Inactive VERAPAMIL HCL CR 120 MG TAB CR 1 qPM VERAPAMIL HCL CR 120 MG TAB CR VERAPAMIL HCL Inactive ZYPREXA 10 MG TABS Take one by mouth daily ZYPREXA 10 MG TABS 849168 OLANZAPINE Inactive TOPROL XL 100 MG [id number]-KLQ 1 @ HS TOPROL XL 100 MG RP47W-RDV METOPROLOL SUCCINATE Inactive LEVEMIR 100 UNIT/ML SOLN 90 units SQ qHS LEVEMIR 100 UNIT/ML SOLN INSULIN DETEMIR Inactive PROMETHAZINE-CODEINE 6.25-10 MG/5ML SYRP 1 tsp po q 6 hours prn cough PROMETHAZINE-CODEINE 6.25-10 MG/5ML SYRP 490611 PROMETHAZINE- CODEINE Inactive GUAIFENESIN 600 MG QU06Y-FJX 1 tablet by mouth twice daily if needed for cough GUAIFENESIN 600 MG [id number]-EXJ GUAIFENESIN Inactive ALBUTEROL SULFATE 0.083 % NEBU SOLN one vial per nebulizer TID and PRN cough/ soa ALBUTEROL SULFATE 0.083 % NEBU SOLN 583058 ALBUTEROL SULFATE Inactive ZYPREXA 5 MG TABS take one tablet by mouth every evening ZYPREXA 5 MG TABS 229136 OLANZAPINE Inactive HYDROCODONE-ACETAMINOPHEN 5-325 MG TABS take one tablet by mouth every four hours as needed for pain HYDROCODONE-ACETAMINOPHEN 5-325 MG TABS 452913 HYDROCODONE-ACETAMINOPHEN Inactive BACTROBAN 2 % CREAM apply to ear and nose twice daily BACTROBAN 2 % CREAM 441077 MUPIROCIN CALCIUM Inactive CYCLOBENZAPRINE HCL 10 MG TABS 1/2 tablet by mouth every 8 hours as needed for muscle spasms CYCLOBENZAPRINE HCL 10 MG TABS 091220 CYCLOBENZAPRINE HCL Inactive NAVANE 10 MG CAPS 1/2 tablet twice a day NAVANE 10 MG CAPS THIOTHIXENE Inactive DOXEPIN HCL 10 MG CAPS Take 1 tablet by mouth daily DOXEPIN HCL 10 MG CAPS 6502772 DOXEPIN HCL Inactive HYDROCODONE-ACETAMINOPHEN 7.5-325 MG TABS 1 four times a day as needed for pain HYDROCODONE-ACETAMINOPHEN 7.5-325 MG TABS 421616 HYDROCODONE-ACETAMINOPHEN Inactive NIACIN CR 500 MG CR-TABS 2 qHS NIACIN CR 500 MG CR- TABS NIACIN Inactive ORPHENADRINE CITRATE ER 100 MG ND49X-QHE 1 every 12 hr. as needed ORPHENADRINE CITRATE ER 100 MG [id number]-CCC ORPHENADRINE CITRATE Inactive ACETAMINOPHEN 500 MG TABS 2 Q 6 hr. PRN ACETAMINOPHEN 500 MG TABS 733676 ACETAMINOPHEN Inactive SAPHRIS 5 MG SUBL by mouth twice a day SAPHRIS 5 MG SUBL ASENAPINE MALEATE Inactive NIACIN ER 500 MG CR-TABS 4 qHS (for triglycerides) NIACIN ER 500 MG CR-TABS NIACIN Inactive IBUPROFEN 200 MG TABS 1 Q 6 hr. PRN IBUPROFEN 200 MG TABS 072127 IBUPROFEN Inactive FLUTICASONE PROPIONATE 50 MCG/ACT SUSP 2 sprays each nostril qDay x 30 days FLUTICASONE PROPIONATE 50 MCG/ACT SUSP 968390 FLUTICASONE PROPIONATE Inactive EQL TRUETEST TEST STRP Test blood sugar TID EQL TRUETEST TEST STRP GLUCOSE BLOOD Inactive TERESE CONTOUR TEST STRP monitor blood sugars 3x/day TERESE CONTOUR TEST STRP GLUCOSE BLOOD Inactive DETROL LA 4 MG IJ15U-FPT Take 1 tablet by mouth daily DETROL LA 4 MG [id number]-[id number] TOLTERODINE TARTRATE Inactive ZYPREXA 7.5 MG TABS 1 at HS ZYPREXA 7.5 MG TABS 663817 OLANZAPINE Inactive THIOTHIXENE 5 MG CAPS by mouth twice a day THIOTHIXENE 5 MG CAPS 872640 THIOTHIXENE Inactive UROXATRAL 10 MG ZZ82X-IUP Take 1 tablet by mouth daily UROXATRAL 10 MG AK51N-CFD ALFUZOSIN HCL Inactive ACYCLOVIR 400 MG ORAL TABS 1 pill three times daily x 5 days, for cold sore outbreak ACYCLOVIR 400 MG ORAL TABS 032767 ACYCLOVIR Inactive TRUETEST TEST STRP check sugars 4x/day TRUETEST TEST STRP GLUCOSE BLOOD Inactive HUMALOG 100 UNIT/ML SOLN Take 20 units with breakfast, 10u with lunch and suppetr. HUMALOG 100 UNIT/ML SOLN INSULIN LISPRO ( HUMAN) Inactive CYCLOBENZAPRINE HCL 10 MG TABS 1 tablet by mouth three times daily, scheduled CYCLOBENZAPRINE HCL 10 MG TABS 758049 CYCLOBENZAPRINE HCL Inactive CEFDINIR 300 MG CAPS by mouth twice a day CEFDINIR 300 MG CAPS 502234 CEFDINIR Inactive AZITHROMYCIN 500 MG SOLR 1 po q day AZITHROMYCIN 500 MG SOLR 399519 AZITHROMYCIN Inactive AMOXICILLIN 500 MG CAPS 2 po BID x 10 days AMOXICILLIN 500 MG CAPS 714552 AMOXICILLIN Inactive PENICILLIN V POTASSIUM 500 MG TABS 1 pill by mouth three times daily PENICILLIN V POTASSIUM 500 MG TABS 203927 PENICILLIN V POTASSIUM Inactive Immunizations Vaccine Administration [...] Fluvirin, Fluarix, Agriflu(>=18 yo)) Fluzone (>3 yrs.) [[id number]] Influenza, seasonal, injectable pneumococcal immunization administered Pneumovax [...] HGBA1C - Chemistry sodium, serum 130 mmol/L 111-067 3856/06/09 potassium, serum 4.0 mmol/L 3.5-5.2 chloride, serum 92 mmol/L 98-107 carbon dioxide, venous blood 22.1 mmol/L 21.0-32.0 blood glucose 60 mg/dL 65-110 calcium, serum 9.5 mg/dL 8.5-10.1 urea nitrogen, blood 14 mg/dL 7-18 creatinine, serum 1.30 mg/dL 0.60-1.30 hemoglobin A1C, blood, as % of total hemoglobin 6.0 % 4.3-6.0 sodium, serum 131 mmol/L 246-632 6578/12/30 potassium, serum 5.0 mmol/L 3.5-5.2 chloride, serum [...] 6.0 mg/dL 2.6-7.2 sodium, serum 130 mmol/L 761-633 1928/05/01 potassium, serum 5.2 mmol/L 3.5-5.2 chloride, serum [...] 0.40 mg/dL 0.00-1.00 cholesterol, serum 151 mg/dL 748-995 2784/05/01 triglyceride, serum, fasting 356 mg/dL 30-200 HDL [...] Panel - Chemistry sodium, serum 127 mmol/L 648-424 9189/10/27 potassium, serum 4.1 mmol/L 3.5-5.2 chloride, serum [...] mg/dL Encounters Code Encounter Date Provider Facility CPT-67763 Level 3 Est. Patient 11:51:18 BOWLING BALL ASSEMBLER Alina Castaneda MD [facility] CPT-79327 Level 3 Est. Patient 10:09:22 BOWLING BALL ASSEMBLER Alina Castaneda MD [facility]-29792 Level 3 Est. Patient 14:36:26 [facility]OWLING BALL ASSEM[facility] CPT-79084 Level 3 Est. Patient 13:34:47 BOWLING BALL ASSEMBLER Alnia Castaneda MD [facility]-62738 Level 3 Est. Patient 19:52:08 BOWLING BALL ASSEMBLER Alina Castaneda MD [facility]-52926 Level 3 Est. Patient 10:01:51 BOWLING BALL ASSEMBLER [facility]173 Level 3 Est. Patient 21:54:06 CDT Vanessa Hickey MD [facility] CPT-73333 Level 3 Est. Patient 08:54:46 CDT Alina Castaneda MD [facility]-88074 Level 3 Est. [facility] 09:32:11 [facility] CPT-58270 Level 3 Est. Patient 12:02:49 CDT Alina Castaneda MD [facility]-35082 Level 3 Est. Patient 19:17:33 CDT Alina Castaneda MD [facility]-51635 Level 3 Est. Patient 13:19:10 [facility]-12567 Level 3 Est. Patient 08:20:05 CDT Alina Castaneda MD [facility]-32121 Level 3 Est. Patient 15:17:18 CDT Alina Castaneda MD [facility]-31127 Level 3 Est. Patient 14:25:36 BOWLING BALL ASSEMBLER Marvel [facility]-66710 Level 3 Est. Patient 10:09:15 BOWLING BALL ASSEMBLER Marvel [facility]-17178 Level 3 Est. Patient 21:28:43 CDT Alina Castaneda MD [facility]30651 Level 3 Est. Patient 15:20:11 CDT Marvel [facility]-00171 Level 4 Est. Patient 19:08:12 CDT Alina Castaneda MD [facility]29315 Level 3 Est. Patient 15:06:39 CDT Marvel [facility]-30695 Level 4 Est. Patient 17:48:15 CDT Alina Castaneda MD [facility]-81419 Level 3 Est. Patient 14:53:49 CDT Alina Castaneda MD [facility]-23234 Level 3 Est. Patient 09:35:16 CDT Alina Castaneda MD [facility]-86968 Level 3 Est. Patient 12:23:22 CDT Alina Castaneda MD [facility]-90172 Level 3 Est. Patient 16:19:15 CDT Alina Castaneda MD [facility]-80862 Level 3 Est. Patient 21:39:56 BOWLING BALL ASSEMBLER Alina Castaneda MD [facility]52731 Level 4 Est. Patient 14:12:56 BOWLING BALL ASSEMBLER Alina Castaneda MD [facility]31600 Level 2 Est. Patient 15:34:57 BOWLING BALL ASSEMBLER Alina Castaneda MD [facility]-38765 Level 3 Est. Patient 12:17:04 BOWLING BALL ASSEMBLER Alina Castaneda MD [facility]08226 Level 3 Est. Patient 09:18:18 BOWLING BALL ASSEMBLER Marvel [facility]-71976 Level 2 Est. Patient 21:50:24 CDT Alina Castaneda MD [facility]72103 Level 3 Est. Patient 09:17:28 CDT Marvel [facility]-28413 Level 4 Est. Patient 18:54:02 CDT Alina Castaneda MD [facility]22729 Level 3 Est. Patient 10:47:10 CDT Alina Castaneda MD [facility]-29483 Level 3 Est. Patient 09:22:20 CDT Marvel [facility]-35717 Level 3 Est. Patient 16:39:43 [facility]-00852 Level 3 Est. Patient 16:05:16 CDT Alina Castaneda MD [facility]-37747 Level 3 Est. Patient 00:29:15 CDT Alina Castaneda MD [facility]23089 Level 3 Est. Patient 10:49:22 BOWLING BALL ASSEMBLER Marvel Charles [facility]87542 Level 3 Est. Patient 21:30:19 BOWLING BALL ASSEMBLER Alina Castaneda MD [facility]18142 Level 4 Est. Patient 17:04:11 BOWLING BALL ASSEMBLER Marvel [facility]-82162 Level 3 Est. Patient 15:34:11 BOWLING BALL ASSEMBLER Marvel Charles MOTEL MANAGER [facility] CPT-38305 Level 2 Est. Patient 12:51:58 BOWLING BALL ASSEMBLER Alina Castaneda MD PhD [facility] CPT-48428 Level 3 Est. Patient 13:20:01 BOWLING BALL ASSEMBLER Alina Castaneda MD PhD [facility] CPT-37848 Level 3 Est. Patient 09:23:35 CDT Alina Castaneda MD PhD [facility] Procedures Code Procedure Name Date Entry Date Standard Description CPT-45577 Bladder Scan 21:54:06 CDT CPT-G0008 Administration of Influenza Virus Vaccine 13:05:26 CDT CPT-54024 Fluzone Quadrivalent Intramuscular Suspension 0.5 ML 13: 05:26 CDT CPT-67268 Administration single or combination vaccine inc oral 11 :49:51 CDT CPT-59384 Pneumovax 11:49:51 CDT CPT-24168 Ribs unilateral 2V 12:37:22 B[employer]LING [employer]SEMBLER CPT-69334 Chest 2V Frontal and Lat 17:15:26 CDT CPT-78602 Abx/Therapy Injection 18:54:02 CDT CPT-J0696 Rocephin 1000 mg (Ceftriaxone) 16:00:32 CDT CPT-73792 Chest 2V Frontal and Lat 15:26:45 CDT CPT-67529 Chest 2V Frontal and Lat 10:23:27 CDT CPT-61833 Venipuncture Draw Fee 10:11:00 CDT CPT-75584 Administration single or combination vaccine inc oral 11 :56:38 CDT CPT-05639 Influenza split virus > age 3 11:56:38 CDT CPT-34433 Venipuncture Draw Fee 08:49:54 B[employer]LING BALL ASSEMBLER CPT-54043 EKG Trac and Interp 17:54:19 [employer]LING BALL ASSEMBLER
--- OUTSIDE RECORDS SUMMARY | 2018-07-02 20:04 | XMS REPORT | Clinical Summary ---
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 Active Alina Castaneda MD PhD Recurrent isolated sleep paralysis SPECIAL SCREENING FOR MALIGNANT NEOPLASM OF PROSTATE V76.44 Resolved Alina Castaneda MD PhD Screening for malignant neoplasms of prostate Hypoglycemia 251.2 Resolved Alina Castaneda MD PhD Hypoglycemia, unspecified Diabetes mellitus, type II 250.00 Active Mallashondaeh Bertrandari INVESTMENT ACCOUNTING CLERK Diabetes mellitus without mention of complication, type [...] STRP check blood sugars 3x/day GLUCOSE BLOOD 02809447446 Active Malihnivia Ziglari INVESTMENT ACCOUNTING CLERK Active ACCU-CHEK ROSA UZMA Use device to check blood sugars BLOOD GLUCOSE MONITORING SUPPL 89312900265 No Longer Active Mallashondaeh Ziglari INVESTMENT ACCOUNTING CLERK Active ACCU-CHEK ROSA INVITR STRP use strips with device to check blood sugars 3 times daily GLUCOSE BLOOD 07405570473 No Longer Active Mallashondaeh 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 INVESTMENT ACCOUNTING CLERK Active VERAPAMIL HCL ER 180 MG ORAL CR-TABS 1 pill by mouth twice daily, for migraine prevention VERAPAMIL HCL 54937461060 Active Alina Castaneda MD PhD Active CYCLOBENZAPRINE HCL 10 MG TABS 1 tablet by mouth three times daily, scheduled CYCLOBENZAPRINE HCL 38220575224 No Longer Active Alina Castaneda MD PhD Active HUMALOG 100 UNIT/ML SOLN Take 20 units with breakfast, 10u with lunch and suppetr. INSULIN LISPRO (HUMAN) 71771401206 No Longer Active Alina Castaneda MD PhD Active TRUETEST TEST STRP check sugars 4x/day GLUCOSE BLOOD 17630757168 No Longer Active Alina Castaneda MD PhD Active MORPHINE SULFATE 30 MG TABS 1 pill by mouth twice daily, for pain MORPHINE SULFATE 61751959493 Active Alina Castaneda MD PhD Active ACYCLOVIR 400 MG ORAL TABS 1 pill three times daily x 5 days, for cold sore outbreak ACYCLOVIR 44114652513 No Longer Active Alina Castaneda MD PhD Active PENICILLIN V POTASSIUM 500 MG TABS 1 pill by mouth three times daily PENICILLIN V POTASSIUM 22803032143 No Longer Active Alina Castaneda MD PhD Active LATUDA 80 MG TABS 1 tab by mouth every evening LURASIDONE HCL 89273106192 Active Alina Castaneda MD PhD Active UROXATRAL 10 MG [id number]-[id number] Take 1 tablet by mouth daily ALFUZOSIN HCL 56537324809 No Longer Active Alina Castaneda MD PhD Active THIOTHIXENE 5 MG CAPS by mouth twice a day THIOTHIXENE 23874556323 No Longer Active Alina Castaneda MD PhD Active ZYPREXA 7.5 MG TABS 1 at HS OLANZAPINE 56439196735 No Longer Active Alina Castaneda MD PhD Active LEVEMIR 100 UNIT/ML SOLN Take 70 u at 7-8pm INSULIN DETEMIR 64868292106 Active Maliheh Ziglari INVESTMENT ACCOUNTING CLERK Active BD INSULIN SYRINGE 28G X 1/2" 1 ML MISC 1 four times per day INSULIN SYRINGE-NEEDLE U-100 86696624898 Active Mallashondaeh Ziglari INVESTMENT ACCOUNTING CLERK Active TOLTERODINE TARTRATE 2 MG TABS 1 pill twice daily, for bladder TOLTERODINE TARTRATE 94007318846 Active Alina Castaneda MD PhD Active DETROL LA 4 MG [id number] Take 1 tablet by mouth daily TOLTERODINE TARTRATE 03831905487 No Longer Active Alina Castaneda MD PhD Active HYDROCODONE-ACETAMINOPHEN 5-325 MG TABS 2 tabs by mouth three times daily as needed for pain HYDROCODONE-ACETAMINOPHEN 33141275990 Active Alina Castaneda MD PhD Active TERESE CONTOUR TEST STRP monitor blood sugars 3x/day GLUCOSE BLOOD 85450165370 No Longer Active Alina Castaneda MD PhD Active EQL TRUETEST TEST STRP Test blood sugar TID GLUCOSE BLOOD 28967830896 No Longer Active Alina Castaneda MD PhD Active FLUTICASONE PROPIONATE 50 MCG/ACT SUSP 2 sprays each nostril qDay x 30 days FLUTICASONE PROPIONATE 18586436187 No Longer Active Alina Castaneda MD PhD Active IBUPROFEN 200 MG TABS 1 Q 6 hr. PRN IBUPROFEN 64186391542 No Longer Active Alina Castaneda MD PhD Active NIACIN ER 500 MG CR-TABS 4 qHS (for triglycerides) NIACIN 95411333271 No Longer Active Alina Castaneda MD PhD Active ALFUZOSIN HCL ER 10 MG [id number] 1 tablet daily ALFUZOSIN HCL 11280178962 Active Vanessa Hickey MD Active CLONAZEPAM 1 MG TABS 1 pill by mouth three times daily CLONAZEPAM 95302810156 Active Alina Castaneda MD PhD Active LOVAZA 1 GM CAPS 4 daily (for triglycerides) [id number] ETHYL ESTERS 37009852670 Active Alina Castaneda MD PhD Active SAPHRIS 5 MG SUBL by mouth twice a day ASENAPINE MALEATE 07182784345 No Longer Active Maliheh Ziglari INVESTMENT ACCOUNTING CLERK Active ACETAMINOPHEN 500 MG TABS 2 Q 6 hr. PRN ACETAMINOPHEN 15713640849 No Longer Active Maliheh Ziglari INVESTMENT ACCOUNTING CLERK Active ORPHENADRINE CITRATE ER 100 MG [id number] 1 every 12 hr. as needed ORPHENADRINE CITRATE 58138674351 No Longer Active Alina Castaneda MD PhD Active NIACIN CR 500 MG CR-TABS 2 qHS NIACIN 34558040955 No Longer Active Alina Castaneda MD PhD Active AMOXICILLIN 500 MG CAPS 2 po BID x 10 days AMOXICILLIN 29476194282 No Longer Active Alina Castaneda MD PhD Active HYDROCODONE-ACETAMINOPHEN 7.5-325 MG TABS 1 four times a day as needed for pain HYDROCODONE-ACETAMINOPHEN 12918436500 No Longer Active Alina Castaneda MD PhD Active METFORMIN HCL ER 500 MG [id number] Take three tablets by mouth everyday METFORMIN HCL 01387025598 Active Marvel MARROQUIN Active DOXEPIN HCL 10 MG CAPS Take 1 tablet by mouth daily DOXEPIN HCL 54305645080 No Longer Active Salina Han A Active NAVANE 10 MG CAPS 1/2 tablet twice a day THIOTHIXENE No Longer Active Salina Han A Active CYCLOBENZAPRINE HCL 10 MG TABS 1/2 tablet by mouth every 8 hours as needed for muscle spasms CYCLOBENZAPRINE HCL 71270803568 No Longer Active Alina Castaneda MD PhD Active BACTROBAN 2 % CREAM apply to ear and nose twice daily MUPIROCIN CALCIUM 59142887335 No Longer Active Alina Castaneda MD PhD Active HYDROCODONE-ACETAMINOPHEN 5-325 MG TABS take one tablet by mouth every four hours as needed for pain HYDROCODONE-ACETAMINOPHEN 16384005382 No Longer Active Alina Castaneda MD PhD Active ZOLPIDEM TARTRATE 10 MG TABS take at bedtime ZOLPIDEM TARTRATE 87052925441 Active Alina Castaneda MD PhD Active ZYPREXA 5 MG TABS take one tablet by mouth every evening OLANZAPINE 29451624252 No Longer Active Alina Castaneda MD PhD Active ALBUTEROL SULFATE 0.083 % NEBU SOLN one vial per nebulizer TID and PRN cough/ soa ALBUTEROL SULFATE 05880303550 No Longer Active Alina Castaneda MD PhD Active GUAIFENESIN 600 MG MI64E-SXC 1 tablet by mouth twice daily if needed for cough GUAIFENESIN 65743811997 No Longer Active Marvel MARROQUIN Active AZITHROMYCIN 500 MG SOLR 1 po q day AZITHROMYCIN 42363640679 No Longer Active Alina Castaneda MD PhD Active METOPROLOL SUCCINATE 100 MG [id number]-HDQ 1 by mouth daily for blood pressure METOPROLOL SUCCINATE 75681888805 Active Alina Castaneda MD PhD Active PROMETHAZINE-CODEINE 6.25-10 MG/5ML SYRP 1 tsp po q 6 hours prn cough PROMETHAZINE-CODEINE 44507680065 No Longer Active Alina Castaneda MD PhD Active CEFDINIR 300 MG CAPS by mouth twice a day CEFDINIR 49891668398 No Longer Active Alina Castaneda MD PhD Active METFORMIN HCL 500 MG [id number]-WWK Take 3 tablets by mouth everyday METFORMIN HCL 69482258385 No Longer Active Alina Castaneda MD PhD Active LEVEMIR 100 UNIT/ML SOLN 90 units SQ qHS INSULIN DETEMIR 65807881174 No Longer Active Marvel MARROQUIN Active TOPROL XL 100 MG [id number] 1 @ HS METOPROLOL SUCCINATE 76507043700 No Longer Active Marvel MARROQUIN Active ALLOPURINOL 300 MG TABS Take one by mouth daily ALLOPURINOL 97895627761 Active Alina Castaneda MD PhD Active ZYPREXA 10 MG TABS Take one by mouth daily OLANZAPINE 75262151469 No Longer Active Alina Castaneda MD PhD Active NOVOLOG 100 UNIT/ML SOLN 40 units with every meal INSULIN ASPART 24193234341 No Longer Active Alina Castaneda MD PhD Active VERAPAMIL HCL CR 120 MG TAB CR 1 qPM VERAPAMIL HCL 20379180597 No Longer Active Salina Han [facility] Active ZYPREXA 15 MG TABS Take 1 tablet by mouth daily OLANZAPINE 48017109542 No Longer Active Marvel MARROQUIN Active LISINOPRIL 20 MG TABS 1 BID LISINOPRIL 96118742547 Active Alina Castaneda MD PhD Active ALBUTEROL SULFATE (2.5 MG/3ML) 0.083% NEBU 1 neb tid and prn cough ALBUTEROL SULFATE 17492278359 No Longer Active Alina Castaneda MD PhD Active FLUVOXAMINE MALEATE 100 MG TABS Take one (1) tablet by mouth am, 1/2 at noon, 1 pm FLUVOXAMINE MALEATE 91447849539 Active Alina Castaneda MD PhD Active TRAVATAN Z 0.004 % SOLN 1 gtt each eye daily TRAVOPROST 57281981585 Active CRYSTAL Suarez Active LANTUS 100 UNIT/ML SOLN 60 units sq q hs INSULIN GLARGINE 80992286199 No Longer Active CRYSTAL Suarez Active ALBUTEROL SULFATE (2.5 MG/3ML) 0.083% NEBU 1 neb tid and prn cough ALBUTEROL SULFATE (2.5 MG/3ML) 0.083% NEBU 406880 ALBUTEROL SULFATE Inactive ZYPREXA 15 MG TABS Take 1 tablet by mouth daily ZYPREXA 15 MG TABS 934034 OLANZAPINE Inactive VERAPAMIL HCL CR 120 MG TAB CR 1 qPM VERAPAMIL HCL CR 120 MG TAB CR VERAPAMIL HCL Inactive ZYPREXA 10 MG TABS Take one by mouth daily ZYPREXA 10 MG TABS 881555 OLANZAPINE Inactive TOPROL XL 100 MG [id number] 1 @ HS TOPROL XL 100 MG [id number] METOPROLOL SUCCINATE Inactive LEVEMIR 100 UNIT/ML SOLN 90 units SQ qHS LEVEMIR 100 UNIT/ML SOLN INSULIN DETEMIR Inactive PROMETHAZINE-CODEINE 6.25-10 MG/5ML SYRP 1 tsp po q 6 hours prn cough PROMETHAZINE-CODEINE 6.25-10 MG/5ML SYRP 944522 PROMETHAZINE- CODEINE Inactive GUAIFENESIN 600 MG WT36X-MTC 1 tablet by mouth twice daily if needed for cough GUAIFENESIN 600 MG [id number] GUAIFENESIN Inactive ALBUTEROL SULFATE 0.083 % NEBU SOLN one vial per nebulizer TID and PRN cough/ soa ALBUTEROL SULFATE 0.083 % NEBU SOLN 648545 ALBUTEROL SULFATE Inactive ZYPREXA 5 MG TABS take one tablet by mouth every evening ZYPREXA 5 MG TABS 208997 OLANZAPINE Inactive HYDROCODONE-ACETAMINOPHEN 5-325 MG TABS take one tablet by mouth every four hours as needed for pain HYDROCODONE-ACETAMINOPHEN 5-325 MG TABS 474080 HYDROCODONE-ACETAMINOPHEN Inactive BACTROBAN 2 % CREAM apply to ear and nose twice daily BACTROBAN 2 % CREAM 703586 MUPIROCIN CALCIUM Inactive CYCLOBENZAPRINE HCL 10 MG TABS 1/2 tablet by mouth every 8 hours as needed for muscle spasms CYCLOBENZAPRINE HCL 10 MG TABS 055437 CYCLOBENZAPRINE HCL Inactive NAVANE 10 MG CAPS 1/2 tablet twice a day NAVANE 10 MG CAPS THIOTHIXENE Inactive DOXEPIN HCL 10 MG CAPS Take 1 tablet by mouth daily DOXEPIN HCL 10 MG CAPS 2477601 DOXEPIN HCL Inactive HYDROCODONE-ACETAMINOPHEN 7.5-325 MG TABS 1 four times a day as needed for pain HYDROCODONE-ACETAMINOPHEN 7.5-325 MG TABS 912557 HYDROCODONE-ACETAMINOPHEN Inactive NIACIN CR 500 MG CR-TABS 2 qHS NIACIN CR 500 MG CR- TABS NIACIN Inactive ORPHENADRINE CITRATE ER 100 MG [id number] 1 every 12 hr. as needed ORPHENADRINE CITRATE ER 100 MG [id number]-XEV ORPHENADRINE CITRATE Inactive ACETAMINOPHEN 500 MG TABS 2 Q 6 hr. PRN ACETAMINOPHEN 500 MG TABS 620021 ACETAMINOPHEN Inactive SAPHRIS 5 MG SUBL by mouth twice a day SAPHRIS 5 MG SUBL ASENAPINE MALEATE Inactive NIACIN ER 500 MG CR-TABS 4 qHS (for triglycerides) NIACIN ER 500 MG CR-TABS NIACIN Inactive IBUPROFEN 200 MG TABS 1 Q 6 hr. PRN IBUPROFEN 200 MG TABS 939446 IBUPROFEN Inactive FLUTICASONE PROPIONATE 50 MCG/ACT SUSP 2 sprays each nostril qDay x 30 days FLUTICASONE PROPIONATE 50 MCG/ACT SUSP 234936 FLUTICASONE PROPIONATE Inactive EQL TRUETEST TEST STRP Test blood sugar TID EQL TRUETEST TEST STRP GLUCOSE BLOOD Inactive TERESE CONTOUR TEST STRP monitor blood sugars 3x/day TERESE CONTOUR TEST STRP GLUCOSE BLOOD Inactive DETROL LA 4 MG [id number] Take 1 tablet by mouth daily DETROL LA 4 MG [id number]-[id number] TOLTERODINE TARTRATE Inactive ZYPREXA 7.5 MG TABS 1 at HS ZYPREXA 7.5 MG TABS 276688 OLANZAPINE Inactive THIOTHIXENE 5 MG CAPS by mouth twice a day THIOTHIXENE 5 MG CAPS 222202 THIOTHIXENE Inactive UROXATRAL 10 MG [id number] Take 1 tablet by mouth daily UROXATRAL 10 MG [id number]-NLE ALFUZOSIN HCL Inactive ACYCLOVIR 400 MG ORAL TABS 1 pill three times daily x 5 days, for cold sore outbreak ACYCLOVIR 400 MG ORAL TABS 806004 ACYCLOVIR Inactive TRUETEST TEST STRP check sugars 4x/day TRUETEST TEST STRP GLUCOSE BLOOD Inactive HUMALOG 100 UNIT/ML SOLN Take 20 units with breakfast, 10u with lunch and suppetr. HUMALOG 100 UNIT/ML SOLN INSULIN LISPRO ( HUMAN) Inactive CYCLOBENZAPRINE HCL 10 MG TABS 1 tablet by mouth three times daily, scheduled CYCLOBENZAPRINE HCL 10 MG TABS 724340 CYCLOBENZAPRINE HCL Inactive ACCU-CHEK ROSA INVITR STRP use strips with device to check blood sugars 3 times daily ACCU-CHEK ROSA INVITR STRP GLUCOSE BLOOD Inactive ACCU-CHEK ROSA UZMA Use device to check blood sugars ACCU-CHEK ROSA UZMA BLOOD GLUCOSE MONITORING SUPPL Inactive CEFDINIR 300 MG CAPS by mouth twice a day CEFDINIR 300 MG CAPS 752745 CEFDINIR Inactive AZITHROMYCIN 500 MG SOLR 1 po q day AZITHROMYCIN 500 MG SOLR 680251 AZITHROMYCIN Inactive AMOXICILLIN 500 MG CAPS 2 po BID x 10 days AMOXICILLIN 500 MG CAPS 257283 AMOXICILLIN Inactive PENICILLIN V POTASSIUM 500 MG TABS 1 pill by mouth three times daily PENICILLIN V POTASSIUM 500 MG TABS 329750 PENICILLIN V POTASSIUM Inactive Immunizations Vaccine Administration [...] Fluvirin, Fluarix, Agriflu(>=18 yo)) Fluzone (>3 yrs.) [IGC399] Influenza, seasonal, injectable pneumococcal immunization administered Pneumovax [...] HGBA1C - Chemistry sodium, serum 130 mmol/L 910-403 2576/06/09 urea nitrogen, blood 14 mg/dL 7-18 creatinine, serum 1.30 mg/dL 0.60-1.30 hemoglobin A1C, blood, as % of total hemoglobin 6.0 % 4.3-6.0 potassium, serum 4.0 mmol/L 3.5-5.2 chloride, serum 92 mmol/L 98-107 carbon dioxide, venous blood 22.1 mmol/L 21.0-32.0 blood glucose 60 mg/dL 65-110 calcium, serum 9.5 mg/dL 8.5-10.1 sodium, serum 131 mmol/L 969-523 2321/12/30 potassium, serum 5.0 mmol/L 3.5-5.2 chloride, serum 95 mmol/L 98-107 carbon dioxide, venous blood 26.7 mmol/L 21.0-32.0 calcium, serum 9.2 mg/dL 8.5-10.1 urea nitrogen, blood 12 mg/dL 7-18 creatinine, serum 1.10 mg/dL 0.60-1.30 hemoglobin A1C, blood, as % of total hemoglobin 5.8 % 4.3-6.0 blood glucose 112 mg/dL 65-110 Lab Report: CBC, CMP, Lipid Panel, TSH, PSA, microalbumin, uric acid - Chemistry potassium, serum 5.2 mmol/L 3.5-5.2 chloride, serum [...] 0.40 mg/dL 0.00-1.00 cholesterol, serum 151 mg/dL 104-335 4333/05/01 triglyceride, serum, fasting 356 mg/dL 30-200 HDL cholesterol, serum 19 mg/dL 32-96 LDL cholesterol, serum 61 mg/dL 0-130 TSH 2.22 m[iU]/mL 0.36-3.74 prostate specific antigen 0.11 ng/mL 0.00-4.00 albumin/creatinine ratio, urine < 30 mg/g mg/g{creat} 0-29 uric acid, serum 6.0 mg/dL 2.6-7.2 sodium, serum 130 mmol/L 136-145 Lab Report: CBC, CMP, Lipid Panel, TSH, PSA, microalbumin, uric acid - Hematology platelet count 304 10^3/MM^3 10*3/mm3 083-269 5043/05/01 red blood cell distribution width 15.0 % 11.6-14.8 mean corpuscular hemoglobin concentration, RBC 34.5 G/DL % 31.8- 35.4 mean corpuscular volume, RBC 87 fL 80-97 hematocrit, blood 44.2 % 41.0-53.0 hemoglobin, blood 15.3 g/dL 13.5-17.5 erythrocyte (RBC) count 5.07 10^6/MM^3 10*6/mm3 4.69-6.13 leukocyte count, blood 7.8 10^3/MM^3 10*3/mm3 4.6-10.2 mean corpuscular hemoglobin, RBC 30.1 pg 27.0-31.2 Lab Report: CBC, CMP, Lipid Panel, TSH, PSA, microalbumin, uric acid - Lab microalbumin, urine 10 0-19 Lab Report: Comp. Metabolic Panel - Chemistry sodium, serum 127 mmol/L 869-042 5408/10/27 chloride, serum 89 mmol/L 98-107 carbon dioxide, venous blood 27.4 mmol/L 21.0-32.0 blood glucose 100 mg/dL 65-110 urea nitrogen, blood 11 mg/dL 7-18 creatinine, serum 1.10 mg/dL 0.60-1.30 potassium, serum 4.1 mmol/L 3.5-5.2 alanine aminotransferase (SGPT), serum 79 U/L 12-78 [...] mg/dL Encounters Code Encounter Date Provider Facility CPT-92088 Level 3 Est. Patient 11:51:18 SPECIALTY SALES REPRESENTATIVE Alina Castaneda MD PhD [facility] CPT-12497 Level 3 Est. Patient 10:09:22 SPECIALTY SALES REPRESENTATIVE Alina Castaneda MD PhD [facility]-43249 Level 3 Est. Patient 14:36:26 SPECIALTY SALES REPRESENTATIVE Marvel [facility] CPT-93225 Level 3 Est. Patient 13:34:47 SPECIALTY SALES REPRESENTATIVE Alina Castaneda MD PhD [facility] CPT-15659 Level 3 Est. Patient 19:52:08 SPECIALTY SALES REPRESENTATIVE Alina Castaneda MD PhD [facility] CPT-58135 Level 3 Est. Patient 10:01:51 SPECIALTY SALES REPRESENTATIVE [facility] CPT-11631 Level 3 Est. Patient 21:54:06 CDT Vanessa Hickey MD [facility]-51232 Level 3 Est. Patient 08:54:46 CDT Alina Castaneda MD [facility]-08441 Level 3 Est. Patient 09:32:11 [facility] CPT-56859 Level 3 Est. Patient 12:02:49 CDT Alina Castaneda MD [facility]-90740 Level 3 Est. Patient 19:17:33 CDT Alina Castaneda MD [facility]-54193 Level 3 Est. Patient 13:19:10 CDT Zainnivia Charles [facility]-00115 Level 3 Est. Patient 08:20:05 CDT Alina Castaneda MD [facility]-45128 Level 3 Est. Patient 15:17:18 CDT Alina Castaneda MD [facility]21217 Level 3 Est. Patient 14:25:36 SPECIALTY SALES REPRESENTATIVE Brook[place] Charles [facility]-41657 Level 3 Est. Patient 10:09:15 SPECIALTY SALES REPRESENTATIVE Marvel Gurdeepajayestela [facility]-00754 Level 3 Est. Patient 21:28:43 CDT Alina Castaneda MD [facility]-60300 Level 3 Est. Patient 15:20:11 CDT Marvel Araceli [facility]-56441 Level 4 Est. Patient 19:08:12 CDT Alina Castaneda MD [facility]-18107 Level 3 Est. Patient 15:06:39 CDT Brookslashondanivia Araceli [facility]-58189 Level 4 Est. Patient 17:48:15 CDT Alina Castaneda MD [facility]-06378 Level 3 Est. Patient 14:53:49 CDT Alina Castaneda MD [facility]-91274 Level 3 Est. Patient 09:35:16 CDT Alina Castaneda MD [facility]-17623 Level 3 Est. Patient 12:23:22 CDT Alina Castaneda MD [facility]-27514 Level 3 Est. Patient 16:19:15 CDT Alina Castaneda MD [facility]-91901 Level 3 Est. Patient 21:39:56 SPECIALTY SALES REPRESENTATIVE Alina Castaneda MD [facility]-41683 Level 4 Est. Patient 14:12:56 SPECIALTY SALES REPRESENTATIVE Alina Castaneda MD [facility]88421 Level 2 Est. Patient 15:34:57 SPECIALTY SALES REPRESENTATIVE Alina Castaneda MD [facility]95302 Level 3 Est. Patient 12:17:04 SPECIALTY SALES REPRESENTATIVE Alina Castaneda MD [facility]62533 Level 3 Est. Patient 09:18:18 SPECIALTY SALES REPRESENTATIVE [facility]-44739 Level 2 Est. Patient 21:50:24 CDT Alina Castaneda MD [facility]-83447 Level 3 Est. Patient 09:17:28 CDT Marvel Charles [facility]-81837 Level 4 Est. Patient 18:54:02 CDT Alina Castaneda MD [facility]-06417 Level 3 Est. Patient 10:47:10 CDT Alina Castaneda MD [facility]-39789 Level 3 Est. Patient 09:22:20 CDT Marvel Charles [facility]-37811 Level 3 Est. Patient 16:39:43 CDT Marvel Charles [facility]-98762 Level 3 Est. Patient 16:05:16 CDT Alina Castaneda MD [facility]50843 Level 3 Est. Patient 00:29:15 CDT Alina Castaneda MD PhD [facility] CPT-10834 Level 3 Est. Patient 10:49:22 SPECIALTY SALES REPRESENTATIVE Marvel [facility] CPT-06505 Level 3 Est. Patient 21:30:19 SPECIALTY SALES REPRESENTATIVE Alina Castaneda MD PhD [facility] CPT-35598 Level 4 Est. Patient 17:04:11 SPECIALTY SALES REPRESENTATIVE [place] [facility] CPT-41350 Level 3 Est. Patient 15:34:11 SPECIALTY SALES REPRESENTATIVE [facility] Level 2 Est. Patient 12:51:58 SPECIALTY SALES REPRESENTATIVE Alina Castaneda MD [facility] CPT-57684 Level 3 Est. Patient 13:20:01 SPECIALTY SALES REPRESENTATIVE Alina Castaneda MD [facility] CPT-99954 Level 3 Est. Patient 09:23:35 CDT Alina Castaneda MD PhD [facility] Procedures Code Procedure Name Date Entry Date Standard Description CPT-53322 Bladder Scan 21:54:06 CDT CPT-G0008 Administration of Influenza Virus Vaccine 13:05:26 CDT CPT-29860 Fluzone Quadrivalent Intramuscular Suspension 0.5 ML 13: 05:26 CDT CPT-59258 Administration single or combination vaccine inc oral 11 :49:51 CDT CPT-80263 Pneumovax 11:49:51 CDT CPT-99287 Ribs unilateral 2V 12:37:22 SPECIALTY SALES REPRESENTATIVE CPT-14283 Chest 2V Frontal and Lat 17:15:26 CDT CPT-13929 Abx/Therapy Injection 18:54:02 CDT CPT-J0696 Rocephin 1000 mg (Ceftriaxone) 16:00:32 CDT CPT-42122 Chest 2V Frontal and Lat 15:26:45 CDT CPT-45019 Chest 2V Frontal and Lat 10:23:27 CDT CPT-95451 Venipuncture Draw Fee 10:11:00 CDT CPT-85331 Administration single or combination vaccine inc oral 11 :56:38 CDT CPT-09729 Influenza split virus > age 3 11:56:38 CDT CPT-14588 Venipuncture Draw Fee 08:49:54 SPECIALTY SALES REPRESENTATIVE CPT-72836 EKG Trac and Interp 17:54:19 SPECIALTY SALES REPRESENTATIVE
--- OUTSIDE RECORDS SUMMARY | 2018-07-02 20:06 | XMS REPORT | Clinical Summary ---
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 Alina Castaneda MD PhD Recurrent isolated sleep paralysis SPECIAL SCREENING FOR MALIGNANT NEOPLASM OF PROSTATE V76.44 Resolved Alina Castaneda MD PhD Screening for malignant neoplasms of prostate Hypoglycemia 251.2 Resolved Alina Castaneda MD PhD Hypoglycemia, unspecified Diabetes mellitus, type II 250.00 Active Mallashondaeh Bertrandari ACCOUNT CONTACT ASSOCIATE Diabetes mellitus without mention of complication, type [...] Generic Name NDC Status Provider Patient Instruction ACCU-CHEK ROSA INVITR STRP use strips with device to check blood sugars 3 times daily GLUCOSE BLOOD 09133449342 Active Alina Castaneda MD PhD Active ACCU-CHEK ROSA UZMA Use device to check blood sugars BLOOD GLUCOSE MONITORING SUPPL 79662305880 Active Alina Castaneda MD PhD Active TRUETEST TEST STRP check sugars 4x/day GLUCOSE BLOOD 14624139877 No Longer Active Alina Castaneda MD PhD Active MORPHINE SULFATE 30 MG TABS 1 pill by mouth twice daily, for pain MORPHINE SULFATE 87940334095 Active Alina Castaneda MD PhD Active ACYCLOVIR 400 MG ORAL TABS 1 pill three times daily x 5 days, for cold sore outbreak ACYCLOVIR 83924900656 No Longer Active Alina Castaneda MD PhD Active PENICILLIN V POTASSIUM 500 MG TABS 1 pill by mouth three times daily PENICILLIN V POTASSIUM 13714104705 No Longer Active Alina Castaneda MD PhD Active LATUDA 80 MG TABS 1 tab by mouth every evening LURASIDONE HCL 07384932310 Active Alina Castaneda MD PhD Active UROXATRAL 10 MG [id number]-FMJ Take 1 tablet by mouth daily ALFUZOSIN HCL 86264676866 No Longer Active Alina Castaneda MD PhD Active THIOTHIXENE 5 MG CAPS by mouth twice a day THIOTHIXENE 02805478349 No Longer Active Alina Castaneda MD PhD Active ZYPREXA 7.5 MG TABS 1 at HS OLANZAPINE 75258840437 No Longer Active Alina Castaneda MD PhD Active HUMALOG 100 UNIT/ML SOLN Take 20 units with breakfast, 10u with lunch and suppetr. INSULIN LISPRO (HUMAN) 77856879887 Active Maljohn Ziglari ACCOUNT CONTACT ASSOCIATE Active LEVEMIR 100 UNIT/ML SOLN Take 70 u at 7-8pm INSULIN DETEMIR 02536626179 Active Maleh Ziglari ACCOUNT CONTACT ASSOCIATE Active BD INSULIN SYRINGE 28G X 1/2" 1 ML MISC 1 four times per day INSULIN SYRINGE-NEEDLE U-100 72263649108 Active Malnivia Ziglari ACCOUNT CONTACT ASSOCIATE Active CYCLOBENZAPRINE HCL 10 MG TABS 1 tablet by mouth three times daily, scheduled CYCLOBENZAPRINE HCL 68617011825 Active Alina Castaneda MD PhD Active TOLTERODINE TARTRATE 2 MG TABS 1 pill twice daily, for bladder TOLTERODINE TARTRATE 84276485877 Active Alina Castaneda MD PhD Active DETROL LA 4 MG [id number] Take 1 tablet by mouth daily TOLTERODINE TARTRATE 10432204539 No Longer Active Alina Castaneda MD PhD Active HYDROCODONE-ACETAMINOPHEN 5-325 MG TABS 2 tabs by mouth three times daily as needed for pain HYDROCODONE-ACETAMINOPHEN 35454690141 Active Alina Castaneda MD PhD Active TERESE CONTOUR TEST STRP monitor blood sugars 3x/day GLUCOSE BLOOD 78352354317 No Longer Active Alina Castaneda MD PhD Active EQL TRUETEST TEST STRP Test blood sugar TID GLUCOSE BLOOD 62233920614 No Longer Active Alina Castaneda MD PhD Active FLUTICASONE PROPIONATE 50 MCG/ACT SUSP 2 sprays each nostril qDay x 30 days FLUTICASONE PROPIONATE 83751640509 No Longer Active Alina Castaneda MD PhD Active IBUPROFEN 200 MG TABS 1 Q 6 hr. PRN IBUPROFEN 13783287136 No Longer Active Alina Castaneda MD PhD Active NIACIN ER 500 MG CR-TABS 4 qHS (for triglycerides) NIACIN 43354010242 No Longer Active Alina Castaneda MD PhD Active ALFUZOSIN HCL ER 10 MG [id number]-VHH 1 tablet daily ALFUZOSIN HCL 97645188518 Active Vanessa Hickey MD Active CLONAZEPAM 1 MG TABS 1 pill by mouth three times daily CLONAZEPAM 67489489380 Active Alina Castaneda MD PhD Active LOVAZA 1 GM CAPS 4 daily (for triglycerides) [id number] ETHYL ESTERS 96215860589 Active Alina Castaneda MD PhD Active SAPHRIS 5 MG SUBL by mouth twice a day ASENAPINE MALEATE 46086183011 No Longer Active Marvel MARROQUIN Active ACETAMINOPHEN 500 MG TABS 2 Q 6 hr. PRN ACETAMINOPHEN 13847990805 No Longer Active Marvel MARROQUIN Active VERAPAMIL HCL ER 120 MG [id number]-XXC 1 pill by mouth twice a day, for headache prevention/control VERAPAMIL HCL 37889791895 Active Alina Castaneda MD PhD Active ORPHENADRINE CITRATE ER 100 MG RG91U-RIK 1 every 12 hr. as needed ORPHENADRINE CITRATE 46101208406 No Longer Active Alina Castaneda MD PhD Active NIACIN CR 500 MG CR-TABS 2 qHS NIACIN 83050207102 No Longer Active Alina Castaneda MD PhD Active AMOXICILLIN 500 MG CAPS 2 po BID x 10 days AMOXICILLIN 87624782848 No Longer Active Alina Castaneda MD PhD Active HYDROCODONE-ACETAMINOPHEN 7.5-325 MG TABS 1 four times a day as needed for pain HYDROCODONE-ACETAMINOPHEN 01356760236 No Longer Active Alina Castaneda MD PhD Active METFORMIN HCL ER 500 MG [id number]-NMC Take three tablets by mouth everyday METFORMIN HCL 08087269535 Active Marvel Mackenzieglestela MENDOZAP Active DOXEPIN HCL 10 MG CAPS Take 1 tablet by mouth daily DOXEPIN HCL 34124734074 No Longer Active Salina Han [facility] Active NAVANE 10 MG CAPS 1/2 tablet twice a day THIOTHIXENE No Longer Active Salina Han [facility] Active CYCLOBENZAPRINE HCL 10 MG TABS 1/2 tablet by mouth every 8 hours as needed for muscle spasms CYCLOBENZAPRINE HCL 21909141305 No Longer Active Alina Castaneda MD PhD Active BACTROBAN 2 % CREAM apply to ear and nose twice daily MUPIROCIN CALCIUM 84497878090 No Longer Active Alina Castaneda MD PhD Active HYDROCODONE-ACETAMINOPHEN 5-325 MG TABS take one tablet by mouth every four hours as needed for pain HYDROCODONE-ACETAMINOPHEN 34689691414 No Longer Active Alina Castaneda MD PhD Active ZOLPIDEM TARTRATE 10 MG TABS take at bedtime ZOLPIDEM TARTRATE 79292602223 Active Alina Castaneda MD PhD Active ZYPREXA 5 MG TABS take one tablet by mouth every evening OLANZAPINE 49449526855 No Longer Active Alina Castaneda MD PhD Active ALBUTEROL SULFATE 0.083 % NEBU SOLN one vial per nebulizer TID and PRN cough/ soa ALBUTEROL SULFATE 61188032363 No Longer Active Alina Castaneda MD PhD Active GUAIFENESIN 600 MG OB73H-JDB 1 tablet by mouth twice daily if needed for cough GUAIFENESIN 20956349490 No Longer Active Marvel Charles ACCOUNT CONTACT ASSOCIATE Active AZITHROMYCIN 500 MG SOLR 1 po q day AZITHROMYCIN 19217582673 No Longer Active Alina Castaneda MD PhD Active METOPROLOL SUCCINATE 100 MG NP31Q-YMW 1 by mouth daily for blood pressure METOPROLOL SUCCINATE 27907924572 Active Alina Castaneda MD PhD Active PROMETHAZINE-CODEINE 6.25-10 MG/5ML SYRP 1 tsp po q 6 hours prn cough PROMETHAZINE-CODEINE 28571182782 No Longer Active Alina Castaneda MD PhD Active CEFDINIR 300 MG CAPS by mouth twice a day CEFDINIR 38088830716 No Longer Active Alina Castaneda MD PhD Active METFORMIN HCL 500 MG AX46H-ETU Take 3 tablets by mouth everyday METFORMIN HCL 62604053013 No Longer Active Alina Castaneda MD PhD Active LEVEMIR 100 UNIT/ML SOLN 90 units SQ qHS INSULIN DETEMIR 50688092451 No Longer Active Marvel MARROQUIN Active TOPROL XL 100 MG FR42Q-KDD 1 @ HS METOPROLOL SUCCINATE 11723254934 No Longer Active Marvel MARROQUIN Active ALLOPURINOL 300 MG TABS Take one by mouth daily ALLOPURINOL 37075376506 Active Alina Castaneda MD PhD Active ZYPREXA 10 MG TABS Take one by mouth daily OLANZAPINE 85748327795 No Longer Active Alina Castaneda MD PhD Active NOVOLOG 100 UNIT/ML SOLN 40 units with every meal INSULIN ASPART 08650818109 No Longer Active Alina Castaneda MD PhD Active VERAPAMIL HCL CR 120 MG TAB CR 1 qPM VERAPAMIL HCL 65062432925 No Longer Active Salina Han [facility] Active ZYPREXA 15 MG TABS Take 1 tablet by mouth daily OLANZAPINE 79123140193 No Longer Active Marvel MARROQUIN Active LISINOPRIL 20 MG TABS 1 BID LISINOPRIL 00499041744 Active Alina Castaneda MD PhD Active ALBUTEROL SULFATE (2.5 MG/3ML) 0.083% NEBU 1 neb tid and prn cough ALBUTEROL SULFATE 64176282058 No Longer Active Alnia Castaneda MD PhD Active FLUVOXAMINE MALEATE 100 MG TABS Take one (1) tablet by mouth am, 1/2 at noon, 1 pm FLUVOXAMINE MALEATE 50513982021 Active Alina Castaneda MD PhD Active TRAVATAN Z 0.004 % SOLN 1 gtt each eye daily TRAVOPROST 74804359075 Active CRYSTAL Suarez Active LANTUS 100 UNIT/ML SOLN 60 units sq q hs INSULIN GLARGINE 56389292260 No Longer Active CRYSTAL Suarez Active ALBUTEROL SULFATE (2.5 MG/3ML) 0.083% NEBU 1 neb tid and prn cough ALBUTEROL SULFATE (2.5 MG/3ML) 0.083% NEBU 429823 ALBUTEROL SULFATE Inactive ZYPREXA 15 MG TABS Take 1 tablet by mouth daily ZYPREXA 15 MG TABS 271715 OLANZAPINE Inactive VERAPAMIL HCL CR 120 MG TAB CR 1 qPM VERAPAMIL HCL CR 120 MG TAB CR VERAPAMIL HCL Inactive ZYPREXA 10 MG TABS Take one by mouth daily ZYPREXA 10 MG TABS 454188 OLANZAPINE Inactive TOPROL XL 100 MG [id number]-UWF 1 @ HS TOPROL XL 100 MG [id number] METOPROLOL SUCCINATE Inactive LEVEMIR 100 UNIT/ML SOLN 90 units SQ qHS LEVEMIR 100 UNIT/ML SOLN INSULIN DETEMIR Inactive PROMETHAZINE-CODEINE 6.25-10 MG/5ML SYRP 1 tsp po q 6 hours prn cough PROMETHAZINE-CODEINE 6.25-10 MG/5ML SYRP 555689 PROMETHAZINE- CODEINE Inactive GUAIFENESIN 600 MG IJ19U-XOF 1 tablet by mouth twice daily if needed for cough GUAIFENESIN 600 MG DX73P-NZC GUAIFENESIN Inactive ALBUTEROL SULFATE 0.083 % NEBU SOLN one vial per nebulizer TID and PRN cough/ soa ALBUTEROL SULFATE 0.083 % NEBU SOLN 359855 ALBUTEROL SULFATE Inactive ZYPREXA 5 MG TABS take one tablet by mouth every evening ZYPREXA 5 MG TABS 768069 OLANZAPINE Inactive HYDROCODONE-ACETAMINOPHEN 5-325 MG TABS take one tablet by mouth every four hours as needed for pain HYDROCODONE-ACETAMINOPHEN 5-325 MG TABS 066636 HYDROCODONE-ACETAMINOPHEN Inactive BACTROBAN 2 % CREAM apply to ear and nose twice daily BACTROBAN 2 % CREAM 512083 MUPIROCIN CALCIUM Inactive CYCLOBENZAPRINE HCL 10 MG TABS 1/2 tablet by mouth every 8 hours as needed for muscle spasms CYCLOBENZAPRINE HCL 10 MG TABS 171387 CYCLOBENZAPRINE HCL Inactive NAVANE 10 MG CAPS 1/2 tablet twice a day NAVANE 10 MG CAPS THIOTHIXENE Inactive DOXEPIN HCL 10 MG CAPS Take 1 tablet by mouth daily DOXEPIN HCL 10 MG CAPS 0396789 DOXEPIN HCL Inactive HYDROCODONE-ACETAMINOPHEN 7.5-325 MG TABS 1 four times a day as needed for pain HYDROCODONE-ACETAMINOPHEN 7.5-325 MG TABS 377172 HYDROCODONE-ACETAMINOPHEN Inactive NIACIN CR 500 MG CR-TABS 2 qHS NIACIN CR 500 MG CR- TABS NIACIN Inactive ORPHENADRINE CITRATE ER 100 MG [id number]-LJB 1 every 12 hr. as needed ORPHENADRINE CITRATE ER 100 MG OS16M-CGB ORPHENADRINE CITRATE Inactive ACETAMINOPHEN 500 MG TABS 2 Q 6 hr. PRN ACETAMINOPHEN 500 MG TABS 788743 ACETAMINOPHEN Inactive SAPHRIS 5 MG SUBL by mouth twice a day SAPHRIS 5 MG SUBL ASENAPINE MALEATE Inactive NIACIN ER 500 MG CR-TABS 4 qHS (for triglycerides) NIACIN ER 500 MG CR-TABS NIACIN Inactive IBUPROFEN 200 MG TABS 1 Q 6 hr. PRN IBUPROFEN 200 MG TABS 879860 IBUPROFEN Inactive FLUTICASONE PROPIONATE 50 MCG/ACT SUSP 2 sprays each nostril qDay x 30 days FLUTICASONE PROPIONATE 50 MCG/ACT SUSP 801260 FLUTICASONE PROPIONATE Inactive EQL TRUETEST TEST STRP Test blood sugar TID EQL TRUETEST TEST STRP GLUCOSE BLOOD Inactive TERESE CONTOUR TEST STRP monitor blood sugars 3x/day TERESE CONTOUR TEST STRP GLUCOSE BLOOD Inactive DETROL LA 4 MG PE95C-JKC Take 1 tablet by mouth daily DETROL LA 4 MG [id number]-EPM TOLTERODINE TARTRATE Inactive ZYPREXA 7.5 MG TABS 1 at HS ZYPREXA 7.5 MG TABS 127230 OLANZAPINE Inactive THIOTHIXENE 5 MG CAPS by mouth twice a day THIOTHIXENE 5 MG CAPS 165617 THIOTHIXENE Inactive UROXATRAL 10 MG [id number]-WRK Take 1 tablet by mouth daily UROXATRAL 10 MG LS72D-QIM ALFUZOSIN HCL Inactive ACYCLOVIR 400 MG ORAL TABS 1 pill three times daily x 5 days, for cold sore outbreak ACYCLOVIR 400 MG ORAL TABS 164213 ACYCLOVIR Inactive TRUETEST TEST STRP check sugars 4x/day TRUETEST TEST STRP GLUCOSE BLOOD Inactive CEFDINIR 300 MG CAPS by mouth twice a day CEFDINIR 300 MG CAPS 193370 CEFDINIR Inactive AZITHROMYCIN 500 MG SOLR 1 po q day AZITHROMYCIN 500 MG SOLR 005647 AZITHROMYCIN Inactive AMOXICILLIN 500 MG CAPS 2 po BID x 10 days AMOXICILLIN 500 MG CAPS 785510 AMOXICILLIN Inactive PENICILLIN V POTASSIUM 500 MG TABS 1 pill by mouth three times daily PENICILLIN V POTASSIUM 500 MG TABS 088317 PENICILLIN V POTASSIUM Inactive Immunizations Vaccine Administration [...] Fluvirin, Fluarix, Agriflu(>=18 yo)) Fluzone (>3 yrs.) [[id number]] Influenza, seasonal, injectable pneumococcal immunization administered Pneumovax 23 [CVX33] pneumococcal polysaccharide vaccine, 23 valent Vital Signs Date Name Value Unit Range Description blood pressure, diastolic - 8462-4 71 mm[Hg] [...] HGBA1C - Chemistry sodium, serum 130 mmol/L 470-775 6958/06/09 potassium, serum 4.0 mmol/L 3.5-5.2 chloride, serum 92 mmol/L 98-107 carbon dioxide, venous blood 22.1 mmol/L 21.0-32.0 blood glucose 60 mg/dL 65-110 calcium, serum 9.5 mg/dL 8.5-10.1 urea nitrogen, blood 14 mg/dL 7-18 creatinine, serum 1.30 mg/dL 0.60-1.30 hemoglobin A1C, blood, as % of total hemoglobin 6.0 % 4.3-6.0 sodium, serum 131 mmol/L 184-959 8423/12/30 potassium, serum 5.0 mmol/L 3.5-5.2 chloride, serum [...] 6.0 mg/dL 2.6-7.2 sodium, serum 130 mmol/L 540-124 7124/05/01 potassium, serum 5.2 mmol/L 3.5-5.2 chloride, serum [...] 0.40 mg/dL 0.00-1.00 cholesterol, serum 151 mg/dL 662-999 5837/05/01 triglyceride, serum, fasting 356 mg/dL 30-200 HDL [...] Panel - Chemistry sodium, serum 127 mmol/L 230-965 4040/10/27 potassium, serum 4.1 mmol/L 3.5-5.2 chloride, serum [...] mg/dL 0.00-1.00 Lab Report: Comp. Metabolic Panel, BA1C - Chemistry sodium, serum 126 mmol/L 192-944 4782/02/26 potassium, serum 4.8 mmol/L 3.5-5.2 chloride, serum [...] mg/dL Encounters Code Encounter Date Provider Facility CPT-35395 Level 3 Est. Patient 10:09:22 FREIGHT RATE ANALYST Alina Castaneda MD PhD [facility] CPT-54810 Level 3 Est. Patient 14:36:26 FREIGHT RATE ANALYST Marvel Charles [facility] CPT-93607 Level 3 Est. Patient 13:34:47 FREIGHT RATE ANALYST Alina Castaneda MD PhD [facility] CPT-59370 Level 3 Est. Patient 19:52:08 FREIGHT RATE ANALYST Alina Castaneda MD PhD [facility] CPT-47381 Level 3 Est. Patient 10:01:51 FREIGHT RATE ANALYST Marvel Charles [facility] CPT-86009 Level 3 Est. Patient 21:54:06 CDT Vanessa Hickey MD [facility]-22167 Level 3 Est. Patient 08:54:46 CDT Alina Castaneda MD PhD [facility] CPT-78965 Level 3 Est. Patient 09:32:11 CDT Marvel Araceli [facility][note 3]-26180 Level 3 Est. Patient 12:02:49 CDT Alina Castaneda MD [facility]-42395 Level 3 Est. Patient 19:17:33 CDT Alina Castaneda MD [facility]17721 Level 3 Est. Patient 13:19:10 CDT Marvel Araceli [facility][note 3]-00507 Level 3 Est. Patient 08:20:05 CDT Alina Castaneda MD [facility]-11556 Level 3 Est. Patient 15:17:18 CDT Alina Castaneda MD [facility]-44188 Level 3 Est. Patient 14:25:36 FREIGHT RATE ANALYST Marvel Charles [facility][note 3]-94540 Level 3 Est. Patient 10:09:15 FREIGHT RATE ANALYST Marvel Charles [facility][note 3]-[id number] Level 3 Est. Patient 21:28:43 CDT Alina Castaneda MD [facility]-47204 Level 3 Est. Patient 15:20:11 CDT Marvel Araceli [facility][note 3]-01044 Level 4 Est. Patient 19:08:12 CDT Alina Castaneda MD [facility]-85400 Level 3 Est. Patient 15:06:39 CDT Brookslashondanivia Araceli [facility][note 3]-69150 Level 4 Est. Patient 17:48:15 CDT Alina Castaneda MD [facility]22510 Level 3 Est. Patient 14:53:49 CDT Alina Cast[facility]eda MD [facility]67262 Level 3 Est. Patient 09:35:16 CDT Alina Castaneda MD [facility]-68120 Level 3 Est. Patient 12:23:22 CDT Alina Castaneda MD [facility]-70777 Level 3 Est. Patient 16:19:15 CDT Alina Castaneda MD [facility]-69682 Level 3 Est. Patient 21:39:56 FREIGHT RATE ANALYST Alina Castaneda MD [facility]-34336 Level 4 Est. Patient 14:12:56 FREIGHT RATE ANALYST Alina Castaneda MD [facility]-50862 Level 2 Est. Patient 15:34:57 FREIGHT RATE ANALYST Alina Castaneda MD [facility]-90527 Level 3 Est. Patient 12:17:04 FREIGHT RATE ANALYST Alina Castaneda MD [facility]-67572 Level 3 Est. Patient 09:18:18 FREIGHT RATE ANALYST Marvel Charles [facility][note 3]-90856 Level 2 Est. Patient 21:50:24 CDT Alina Castaneda MD [facility]-46372 Level 3 Est. Patient 09:17:28 CDT Marvel Charles [facility][note 3]-23458 Level 4 Est. Patient 18:54:02 CDT Alina Castaneda MD [facility]-13083 Level 3 Est. Patient 10:47:10 CDT Alina Castaneda MD [facility]-98474 Level 3 Est. Patient 09:22:20 CDT Marvel Charles [facility][note 3]-46869 Level 3 Est. Patient 16:39:43 CDT Marvel Charles [facility][note 3]-99404 Level 3 Est. Patient 16:05:16 CDT Alina Castaneda MD [facility] CPT-40626 Level 3 Est. Patient 00:29:15 CDT Alina Castaneda MD [facility] CPT-74944 Level 3 Est. Patient 10:49:22 FREIGHT RATE ANALYST Marvel Thurstonestela [facility] CPT-45468 Level 3 Est. Patient 21:30:19 FREIGHT RATE ANALYST Alina Castaneda MD [facility] CPT-97519 Level 4 Est. Patient 17:04:11 FREIGHT RATE ANALYST [facility]40 Level 3 Est. Patient 15:34:11 FREIGHT RATE ANALYST [facility]-26662 Level 2 Est. Patient 12:51:58 FREIGHT RATE ANALYST Alina Castaneda MD [facility] CPT-60594 Level 3 Est. Patient 13:20:01 FREIGHT RATE ANALYST Alina Castaneda MD [facility] CPT-35768 Level 3 Est. Patient 09:23:35 CDT Alina Castaneda MD [facility] Procedures Code Procedure Name Date Entry Date Standard Description CPT-29337 Bladder Scan 21:54:06 CDT CPT-G0008 Administration of Influenza Virus Vaccine 13:05:26 CDT CPT-90478 Fluzone Quadrivalent Intramuscular Suspension 0.5 ML 13: 05:26 CDT CPT-54756 Administration single or combination vaccine inc oral 11 :49:51 CDT CPT-30358 Pneumovax 11:49:51 CDT CPT-34426 Ribs unilateral 2V 12:37:22 FREIGHT RATE ANALYST CPT-46469 Chest 2V Frontal and Lat 17:15:26 CDT CPT-55691 Abx/Therapy Injection 18:54:02 CDT CPT-J0696 Rocephin 1000 mg (Ceftriaxone) 16:00:32 CDT CPT-52891 Chest 2V Frontal and Lat 15:26:45 CDT CPT-25282 Chest 2V Frontal and Lat 10:23:27 CDT CPT-10746 Venipuncture Draw Fee 10:11:00 CDT CPT-06242 Administration single or combination vaccine inc oral 11 :56:38 CDT CPT-57718 Influenza split virus > age 3 11:56:38 CDT CPT-35420 Venipuncture Draw Fee 08:49:54 FREIGHT RATE ANALYST CPT-04456 EKG Trac and Interp 17:54:19 FREIGHT RATE ANALYST
--- OUTSIDE RECORDS SUMMARY | 2018-07-02 20:07 | XMS REPORT | Clinical Summary ---
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 Active Alina Castaneda MD PhD Recurrent isolated sleep paralysis SPECIAL SCREENING FOR MALIGNANT NEOPLASM OF PROSTATE V76.44 Resolved Alina Castaneda MD PhD Screening for malignant neoplasms of prostate Hypoglycemia 251.2 Resolved Alina Castaneda MD PhD Hypoglycemia, unspecified Diabetes mellitus, type II 250.00 Active Mallashondaeh Bertrandari DIRECTOR STRATEGY Diabetes mellitus without mention of complication, type [...] Alina Castaneda MD PhD SKIN LESION ICD-709.9 Rroo Castaneda MD PhD SINUSITIS, ACUTE ICD-461.9 Inactive [...] STRP check blood sugars 3x/day GLUCOSE BLOOD 43129174759 Active Malihnivia Ziglari DIRECTOR STRATEGY Active ACCU-CHEK ROSA UZMA Use device to check blood sugars BLOOD GLUCOSE MONITORING SUPPL 66122148589 No Longer Active Mallashondaeh Ziglari DIRECTOR STRATEGY Active ACCU-CHEK ROSA INVITR STRP use strips with device to check blood sugars 3 times daily GLUCOSE BLOOD 34789921757 No Longer Active Mallashondaeh 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 DIRECTOR STRATEGY Active VERAPAMIL HCL ER 180 MG ORAL CR-TABS 1 pill by mouth twice daily, for migraine prevention VERAPAMIL HCL 12389564684 Active Alina Castaneda MD PhD Active CYCLOBENZAPRINE HCL 10 MG TABS 1 tablet by mouth three times daily, scheduled CYCLOBENZAPRINE HCL 17500392215 No Longer Active Alina Castaneda MD PhD Active HUMALOG 100 UNIT/ML SOLN Take 20 units with breakfast, 10u with lunch and suppetr. INSULIN LISPRO (HUMAN) 51162915039 No Longer Active Alina Castaneda MD PhD Active TRUETEST TEST STRP check sugars 4x/day GLUCOSE BLOOD 14844080957 No Longer Active Alina Castaneda MD PhD Active MORPHINE SULFATE 30 MG TABS 1 pill by mouth twice daily, for pain MORPHINE SULFATE 30649033715 Active Alina Castaneda MD PhD Active ACYCLOVIR 400 MG ORAL TABS 1 pill three times daily x 5 days, for cold sore outbreak ACYCLOVIR 38363402008 No Longer Active Alina Castaneda MD PhD Active PENICILLIN V POTASSIUM 500 MG TABS 1 pill by mouth three times daily PENICILLIN V POTASSIUM 27229422954 No Longer Active Alina Castaneda MD PhD Active LATUDA 80 MG TABS 1 tab by mouth every evening LURASIDONE HCL 43424013240 Active Alina Castaneda MD PhD Active UROXATRAL 10 MG [id number]-[id number] Take 1 tablet by mouth daily ALFUZOSIN HCL 21886482856 No Longer Active Alina Castaneda MD PhD Active THIOTHIXENE 5 MG CAPS by mouth twice a day THIOTHIXENE 58958069948 No Longer Active Alina Castaneda MD PhD Active ZYPREXA 7.5 MG TABS 1 at HS OLANZAPINE 83927985992 No Longer Active Alina Castaneda MD PhD Active LEVEMIR 100 UNIT/ML SOLN Take 70 u at 7-8pm INSULIN DETEMIR 26093569015 Active Maliheh Ziglari DIRECTOR STRATEGY Active BD INSULIN SYRINGE 28G X 1/2" 1 ML MISC 1 four times per day INSULIN SYRINGE-NEEDLE U-100 32880228753 Active Mallashondaeh Ziglari DIRECTOR STRATEGY Active TOLTERODINE TARTRATE 2 MG TABS 1 pill twice daily, for bladder TOLTERODINE TARTRATE 85407582581 Active Alina Castaneda MD PhD Active DETROL LA 4 MG FY14F-HKY Take 1 tablet by mouth daily TOLTERODINE TARTRATE 05811884791 No Longer Active Alina Castaneda MD PhD Active HYDROCODONE-ACETAMINOPHEN 5-325 MG TABS 2 tabs by mouth three times daily as needed for pain HYDROCODONE-ACETAMINOPHEN 09669046354 Active Alina Castaneda MD PhD Active TERESE CONTOUR TEST STRP monitor blood sugars 3x/day GLUCOSE BLOOD 79849126283 No Longer Active Alina Castaneda MD PhD Active EQL TRUETEST TEST STRP Test blood sugar TID GLUCOSE BLOOD 24261248484 No Longer Active Alina Castaneda MD PhD Active FLUTICASONE PROPIONATE 50 MCG/ACT SUSP 2 sprays each nostril qDay x 30 days FLUTICASONE PROPIONATE 49027566115 No Longer Active Alina Castaneda MD PhD Active IBUPROFEN 200 MG TABS 1 Q 6 hr. PRN IBUPROFEN 75858149002 No Longer Active Alina Castaneda MD PhD Active NIACIN ER 500 MG CR-TABS 4 qHS (for triglycerides) NIACIN 47970250635 No Longer Active Alina Castaneda MD PhD Active ALFUZOSIN HCL ER 10 MG [id number]-FAM 1 tablet daily ALFUZOSIN HCL 28892860057 Active Vanessa Hickey MD Active CLONAZEPAM 1 MG TABS 1 pill by mouth three times daily CLONAZEPAM 41766362293 Active Alina Castaneda MD PhD Active LOVAZA 1 GM CAPS 4 daily (for triglycerides) SNYPR-5-KSRA ETHYL ESTERS 76916390016 Active Alina Castaneda MD PhD Active SAPHRIS 5 MG SUBL by mouth twice a day ASENAPINE MALEATE 90974873333 No Longer Active Maliheh Ziglari DIRECTOR STRATEGY Active ACETAMINOPHEN 500 MG TABS 2 Q 6 hr. PRN ACETAMINOPHEN 88453362627 No Longer Active Maliheh Ziglari DIRECTOR STRATEGY Active ORPHENADRINE CITRATE ER 100 MG [id number]-LET 1 every 12 hr. as needed ORPHENADRINE CITRATE 49763282033 No Longer Active Alina Castaneda MD PhD Active NIACIN CR 500 MG CR-TABS 2 qHS NIACIN 62346537758 No Longer Active Alina Castaneda MD PhD Active AMOXICILLIN 500 MG CAPS 2 po BID x 10 days AMOXICILLIN 88857529957 No Longer Active Alina Castaneda MD PhD Active HYDROCODONE-ACETAMINOPHEN 7.5-325 MG TABS 1 four times a day as needed for pain HYDROCODONE-ACETAMINOPHEN 53458254495 No Longer Active Alina Castaneda MD PhD Active METFORMIN HCL ER 500 MG RU57T-XYW Take three tablets by mouth everyday METFORMIN HCL 83609247822 Active Marvel MARROQUIN Active DOXEPIN HCL 10 MG CAPS Take 1 tablet by mouth daily DOXEPIN HCL 80681533283 No Longer Active Salina Han A Active NAVANE 10 MG CAPS 1/2 tablet twice a day THIOTHIXENE No Longer Active Salina Han A Active CYCLOBENZAPRINE HCL 10 MG TABS 1/2 tablet by mouth every 8 hours as needed for muscle spasms CYCLOBENZAPRINE HCL 33839651095 No Longer Active Alina Castaneda MD PhD Active BACTROBAN 2 % CREAM apply to ear and nose twice daily MUPIROCIN CALCIUM 17484254137 No Longer Active Alina Castaneda MD PhD Active HYDROCODONE-ACETAMINOPHEN 5-325 MG TABS take one tablet by mouth every four hours as needed for pain HYDROCODONE-ACETAMINOPHEN 53443564425 No Longer Active Alina Castaneda MD PhD Active ZOLPIDEM TARTRATE 10 MG TABS take at bedtime ZOLPIDEM TARTRATE 94656833786 Active Alina Castaneda MD PhD Active ZYPREXA 5 MG TABS take one tablet by mouth every evening OLANZAPINE 00685299965 No Longer Active Alina Castaneda MD PhD Active ALBUTEROL SULFATE 0.083 % NEBU SOLN one vial per nebulizer TID and PRN cough/ soa ALBUTEROL SULFATE 79627129836 No Longer Active Alina Castaneda MD PhD Active GUAIFENESIN 600 MG AY22B-TIR 1 tablet by mouth twice daily if needed for cough GUAIFENESIN 75931789750 No Longer Active Marvel MARROQUIN Active AZITHROMYCIN 500 MG SOLR 1 po q day AZITHROMYCIN 19488119598 No Longer Active Alina Castaneda MD PhD Active METOPROLOL SUCCINATE 100 MG UK62Q-VVA 1 by mouth daily for blood pressure METOPROLOL SUCCINATE 98190357507 Active Alina Castaneda MD PhD Active PROMETHAZINE-CODEINE 6.25-10 MG/5ML SYRP 1 tsp po q 6 hours prn cough PROMETHAZINE-CODEINE 14976476347 No Longer Active Alina Castaneda MD PhD Active CEFDINIR 300 MG CAPS by mouth twice a day CEFDINIR 07127061532 No Longer Active Alina Castaneda MD PhD Active METFORMIN HCL 500 MG AT49T-JLF Take 3 tablets by mouth everyday METFORMIN HCL 53401904748 No Longer Active Alina Castaneda MD PhD Active LEVEMIR 100 UNIT/ML SOLN 90 units SQ qHS INSULIN DETEMIR 64298115528 No Longer Active Marvel MARROQUIN Active TOPROL XL 100 MG MC26G-NIT 1 @ HS METOPROLOL SUCCINATE 56371438730 No Longer Active Marvel MARROQUIN Active ALLOPURINOL 300 MG TABS Take one by mouth daily ALLOPURINOL 51219943923 Active Alina Castaneda MD PhD Active ZYPREXA 10 MG TABS Take one by mouth daily OLANZAPINE 06924617513 No Longer Active Alina Castaneda MD PhD Active NOVOLOG 100 UNIT/ML SOLN 40 units with every meal INSULIN ASPART 49303179661 No Longer Active Alina Castaneda MD PhD Active VERAPAMIL HCL CR 120 MG TAB CR 1 qPM VERAPAMIL HCL 63450696636 No Longer Active Salina Han [facility] Active ZYPREXA 15 MG TABS Take 1 tablet by mouth daily OLANZAPINE 41441646729 No Longer Active Marvel MARROQUIN Active LISINOPRIL 20 MG TABS 1 BID LISINOPRIL 65601718450 Active Alina Castaneda MD PhD Active ALBUTEROL SULFATE (2.5 MG/3ML) 0.083% NEBU 1 neb tid and prn cough ALBUTEROL SULFATE 14797039572 No Longer Active Alina Castaneda MD PhD Active FLUVOXAMINE MALEATE 100 MG TABS Take one (1) tablet by mouth am, 1/2 at noon, 1 pm FLUVOXAMINE MALEATE 81310947276 Active Alina Castaneda MD PhD Active TRAVATAN Z 0.004 % SOLN 1 gtt each eye daily TRAVOPROST 51342074801 Active CRYSTAL Suarez Active LANTUS 100 UNIT/ML SOLN 60 units sq q hs INSULIN GLARGINE 11315864042 No Longer Active CRYSTAL Suarez Active ALBUTEROL SULFATE (2.5 MG/3ML) 0.083% NEBU 1 neb tid and prn cough ALBUTEROL SULFATE (2.5 MG/3ML) 0.083% NEBU 589657 ALBUTEROL SULFATE Inactive ZYPREXA 15 MG TABS Take 1 tablet by mouth daily ZYPREXA 15 MG TABS 728287 OLANZAPINE Inactive VERAPAMIL HCL CR 120 MG TAB CR 1 qPM VERAPAMIL HCL CR 120 MG TAB CR VERAPAMIL HCL Inactive ZYPREXA 10 MG TABS Take one by mouth daily ZYPREXA 10 MG TABS 399038 OLANZAPINE Inactive TOPROL XL 100 MG [id number] 1 @ HS TOPROL XL 100 MG RZ65V-TZN METOPROLOL SUCCINATE Inactive LEVEMIR 100 UNIT/ML SOLN 90 units SQ qHS LEVEMIR 100 UNIT/ML SOLN INSULIN DETEMIR Inactive PROMETHAZINE-CODEINE 6.25-10 MG/5ML SYRP 1 tsp po q 6 hours prn cough PROMETHAZINE-CODEINE 6.25-10 MG/5ML SYRP 062133 PROMETHAZINE- CODEINE Inactive GUAIFENESIN 600 MG DD25M-AXF 1 tablet by mouth twice daily if needed for cough GUAIFENESIN 600 MG QS63H-GGC GUAIFENESIN Inactive ALBUTEROL SULFATE 0.083 % NEBU SOLN one vial per nebulizer TID and PRN cough/ soa ALBUTEROL SULFATE 0.083 % NEBU SOLN 579179 ALBUTEROL SULFATE Inactive ZYPREXA 5 MG TABS take one tablet by mouth every evening ZYPREXA 5 MG TABS 823136 OLANZAPINE Inactive HYDROCODONE-ACETAMINOPHEN 5-325 MG TABS take one tablet by mouth every four hours as needed for pain HYDROCODONE-ACETAMINOPHEN 5-325 MG TABS 276170 HYDROCODONE-ACETAMINOPHEN Inactive BACTROBAN 2 % CREAM apply to ear and nose twice daily BACTROBAN 2 % CREAM 037087 MUPIROCIN CALCIUM Inactive CYCLOBENZAPRINE HCL 10 MG TABS 1/2 tablet by mouth every 8 hours as needed for muscle spasms CYCLOBENZAPRINE HCL 10 MG TABS 094230 CYCLOBENZAPRINE HCL Inactive NAVANE 10 MG CAPS 1/2 tablet twice a day NAVANE 10 MG CAPS THIOTHIXENE Inactive DOXEPIN HCL 10 MG CAPS Take 1 tablet by mouth daily DOXEPIN HCL 10 MG CAPS 7679939 DOXEPIN HCL Inactive HYDROCODONE-ACETAMINOPHEN 7.5-325 MG TABS 1 four times a day as needed for pain HYDROCODONE-ACETAMINOPHEN 7.5-325 MG TABS 840772 HYDROCODONE-ACETAMINOPHEN Inactive NIACIN CR 500 MG CR-TABS 2 qHS NIACIN CR 500 MG CR- TABS NIACIN Inactive ORPHENADRINE CITRATE ER 100 MG IY20D-RCU 1 every 12 hr. as needed ORPHENADRINE CITRATE ER 100 MG SJ03B-ORL ORPHENADRINE CITRATE Inactive ACETAMINOPHEN 500 MG TABS 2 Q 6 hr. PRN ACETAMINOPHEN 500 MG TABS 784183 ACETAMINOPHEN Inactive SAPHRIS 5 MG SUBL by mouth twice a day SAPHRIS 5 MG SUBL ASENAPINE MALEATE Inactive NIACIN ER 500 MG CR-TABS 4 qHS (for triglycerides) NIACIN ER 500 MG CR-TABS NIACIN Inactive IBUPROFEN 200 MG TABS 1 Q 6 hr. PRN IBUPROFEN 200 MG TABS 556267 IBUPROFEN Inactive FLUTICASONE PROPIONATE 50 MCG/ACT SUSP 2 sprays each nostril qDay x 30 days FLUTICASONE PROPIONATE 50 MCG/ACT SUSP 794857 FLUTICASONE PROPIONATE Inactive EQL TRUETEST TEST STRP Test blood sugar TID EQL TRUETEST TEST STRP GLUCOSE BLOOD Inactive TERESE CONTOUR TEST STRP monitor blood sugars 3x/day TERESE CONTOUR TEST STRP GLUCOSE BLOOD Inactive DETROL LA 4 MG NY22J-DAT Take 1 tablet by mouth daily DETROL LA 4 MG DC23L-RPC TOLTERODINE TARTRATE Inactive ZYPREXA 7.5 MG TABS 1 at HS ZYPREXA 7.5 MG TABS 417691 OLANZAPINE Inactive THIOTHIXENE 5 MG CAPS by mouth twice a day THIOTHIXENE 5 MG CAPS 356940 THIOTHIXENE Inactive UROXATRAL 10 MG SQ77L-DCU Take 1 tablet by mouth daily UROXATRAL 10 MG [id number] ALFUZOSIN HCL Inactive ACYCLOVIR 400 MG ORAL TABS 1 pill three times daily x 5 days, for cold sore outbreak ACYCLOVIR 400 MG ORAL TABS 028830 ACYCLOVIR Inactive TRUETEST TEST STRP check sugars 4x/day TRUETEST TEST STRP GLUCOSE BLOOD Inactive HUMALOG 100 UNIT/ML SOLN Take 20 units with breakfast, 10u with lunch and suppetr. HUMALOG 100 UNIT/ML SOLN INSULIN LISPRO ( HUMAN) Inactive CYCLOBENZAPRINE HCL 10 MG TABS 1 tablet by mouth three times daily, scheduled CYCLOBENZAPRINE HCL 10 MG TABS 715445 CYCLOBENZAPRINE HCL Inactive ACCU-CHEK ROSA INVITR STRP use strips with device to check blood sugars 3 times daily ACCU-CHEK ROSA INVITR STRP GLUCOSE BLOOD Inactive ACCU-CHEK ROSA UZMA Use device to check blood sugars ACCU-CHEK ROSA UZMA BLOOD GLUCOSE MONITORING SUPPL Inactive CEFDINIR 300 MG CAPS by mouth twice a day CEFDINIR 300 MG CAPS 103395 CEFDINIR Inactive AZITHROMYCIN 500 MG SOLR 1 po q day AZITHROMYCIN 500 MG SOLR 773902 AZITHROMYCIN Inactive AMOXICILLIN 500 MG CAPS 2 po BID x 10 days AMOXICILLIN 500 MG CAPS 143326 AMOXICILLIN Inactive PENICILLIN V POTASSIUM 500 MG TABS 1 pill by mouth three times daily PENICILLIN V POTASSIUM 500 MG TABS 039178 PENICILLIN V POTASSIUM Inactive Immunizations Vaccine Administration [...] Fluvirin, Fluarix, Agriflu(>=18 yo)) Fluzone (>3 yrs.) [[id number]] Influenza, seasonal, injectable pneumococcal immunization administered Pneumovax [...] HGBA1C - Chemistry sodium, serum 130 mmol/L 003-582 7338/06/09 potassium, serum 4.0 mmol/L 3.5-5.2 chloride, serum 92 mmol/L 98-107 carbon dioxide, venous blood 22.1 mmol/L 21.0-32.0 blood glucose 60 mg/dL 65-110 calcium, serum 9.5 mg/dL 8.5-10.1 urea nitrogen, blood 14 mg/dL 7-18 creatinine, serum 1.30 mg/dL 0.60-1.30 hemoglobin A1C, blood, as % of total hemoglobin 6.0 % 4.3-6.0 sodium, serum 131 mmol/L 296-991 2764/12/30 potassium, serum 5.0 mmol/L 3.5-5.2 chloride, serum [...] 6.0 mg/dL 2.6-7.2 sodium, serum 130 mmol/L 865-542 9920/05/01 potassium, serum 5.2 mmol/L 3.5-5.2 chloride, serum [...] 0.40 mg/dL 0.00-1.00 cholesterol, serum 151 mg/dL 544-207 3725/05/01 triglyceride, serum, fasting 356 mg/dL 30-200 HDL [...] Panel - Chemistry sodium, serum 127 mmol/L 720-685 0891/10/27 potassium, serum 4.1 mmol/L 3.5-5.2 chloride, serum [...] mg/dL Encounters Code Encounter Date Provider Facility CPT-17862 Level 3 Est. Patient 11:51:18 SHELL WORKER Alina Castaneda MD PhD [facility] CPT-61349 Level 3 Est. Patient 10:09:22 SHELL WORKER Alina Castaneda MD PhD [facility]-10136 Level 3 Est. Patient 14:36:26 SHELL WORKER Marvel [facility] CPT-38359 Level 3 Est. Patient 13:34:47 SHELL WORKER Alina Castaneda MD PhD [facility]-07488 Level 3 Est. Patient 19:52:08 SHELL WORKER Alina Castaneda MD PhD [facility] CPT-15471 Level 3 Est. Patient 10:01:51 SHELL WORKER [facility] CPT-11058 Level 3 Est. Patient 21:54:06 CDT Vanessa Hickey MD [facility]-49090 Level 3 Est. Patient 08:54:46 CDT Alina Castaneda MD [facility]-92347 Level 3 Est. Patient 09:32:11 [facility] CPT-07324 Level 3 Est. Patient 12:02:49 CDT Alina Castaneda MD [facility]-55045 Level 3 Est. Patient 19:17:33 CDT Alina Castaneda MD [facility]-65226 Level 3 Est. Patient 13:19:10 CDT Zainnivia [facility]-83717 Level 3 Est. Patient 08:20:05 CDT Alina Castaneda MD [facility]-18019 Level 3 Est. Patient 15:17:18 CDT Alina Castaneda MD [facility]73637 Level 3 Est. Patient 14:25:36 SHELL WORKER [place] [facility]-09445 Level 3 Est. Patient 10:09:15 SHELL WORKER Marvel Gurdeepajayestela [facility]-75895 Level 3 Est. Patient 21:28:43 CDT Alina Castaneda MD [facility]-66395 Level 3 Est. Patient 15:20:11 CDT Marvel Araceli [facility]-88950 Level 4 Est. Patient 19:08:12 CDT Alina Castaneda MD [facility]-62107 Level 3 Est. Patient 15:06:39 CDT [place] Arac[facility]-67315 Level 4 Est. Patient 17:48:15 CDT Alina Castaneda MD [facility]-77380 Level 3 Est. Patient 14:53:49 CDT Alina Castaneda MD [facility]-73056 Level 3 Est. Patient 09:35:16 CDT Alina Castaenda MD [facility]-97376 Level 3 Est. Patient 12:23:22 CDT Alina Castaneda MD [facility]-60739 Level 3 Est. Patient 16:19:15 CDT Alina Castaneda MD [facility]-61958 Level 3 Est. Patient 21:39:56 SHELL WORKER Alina Castaneda MD [facility]-76323 Level 4 Est. Patient 14:12:56 SHELL WORKER Alina Castaneda MD [facility]30087 Level 2 Est. Patient 15:34:57 SHELL WORKER Alina Castaneda MD [facility]30868 Level 3 Est. Patient 12:17:04 SHELL WORKER Alina Castaneda MD [facility]94613 Level 3 Est. Patient 09:18:18 [facility]-20157 Level 2 Est. Patient 21:50:24 CDT Alina Castaneda MD [facility]-82082 Level 3 Est. Patient 09:17:28 CDT Marvel [facility]-60489 Level 4 Est. Patient 18:54:02 CDT Alina Castaneda MD [facility]-90324 Level 3 Est. Patient 10:47:10 CDT Alina Castaneda MD [facility]-45585 Level 3 Est. Patient 09:22:20 CDT Marvel [facility]-55965 Level 3 Est. Patient 16:39:43 CDT Marvel [facility]-24429 Level 3 Est. Patient 16:05:16 CDT Alina Castaneda MD [facility]23721 Level 3 Est. Patient 00:29:15 CDT Alina Castaneda MD PhD [facility] CPT-89653 Level 3 Est. Patient 10:49:22 SHELL WORKER Marvel [facility] CPT-72562 Level 3 Est. Patient 21:30:19 SHELL WORKER Alina Castaneda MD PhD [facility] CPT-91589 Level 4 Est. Patient 17:04:11 SHELL WORKER [place] [facility] CPT-29112 Level 3 Est. Patient 15:34:11 [facility]ER [facility]677 Level 2 Est. Patient 12:51:58 SHELL WORKER Alina Castaneda MD [facility] CPT-51317 Level 3 Est. Patient 13:20:01 SHELL WORKER Alina Castaneda MD [facility] CPT-33784 Level 3 Est. Patient 09:23:35 CDT Alina Castaneda MD PhD [facility] Procedures Code Procedure Name Date Entry Date Standard Description CPT-60804 Bladder Scan 21:54:06 CDT CPT-G0008 Administration of Influenza Virus Vaccine 13:05:26 CDT CPT-00833 Fluzone Quadrivalent Intramuscular Suspension 0.5 ML 13: 05:26 CDT CPT-29303 Administration single or combination vaccine inc oral 11 :49:51 CDT CPT-32807 Pneumovax 11:49:51 CDT CPT-20682 Ribs unilateral 2V 12:37:22 SHELL WORKER CPT-69213 Chest 2V Frontal and Lat 17:15:26 CDT CPT-04124 Abx/Therapy Injection 18:54:02 CDT CPT-J0696 Rocephin 1000 mg (Ceftriaxone) 16:00:32 CDT CPT-10926 Chest 2V Frontal and Lat 15:26:45 CDT CPT-75623 Chest 2V Frontal and Lat 10:23:27 CDT CPT-18593 Venipuncture Draw Fee 10:11:00 CDT CPT-87897 Administration single or combination vaccine inc oral 11 :56:38 CDT CPT-89601 Influenza split virus > age 3 11:56:38 CDT CPT-34073 Venipuncture Draw Fee 08:49:54 SHELL WORKER CPT-74238 EKG Trac and Interp 17:54:19 SHELL WORKER
--- OUTSIDE RECORDS SUMMARY | 2018-07-02 20:09 | XMS REPORT | Clinical Summary ---
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 Active Alina Castaneda MD PhD Recurrent isolated sleep paralysis SPECIAL SCREENING FOR MALIGNANT NEOPLASM OF PROSTATE V76.44 Resolved Alina Castaneda MD PhD Screening for malignant neoplasms of prostate Hypoglycemia 251.2 Resolved Alina Castaneda MD PhD Hypoglycemia, unspecified Diabetes mellitus, type II 250.00 Active Zaineh Gurdeepajayari HOUSE VISITOR Diabetes mellitus without mention of complication, type [...] SIDED ICD-786.50 Inactive Alina Castaneda MD PhD WOUND, OPEN, NOSE ICD-873.20 Roro Castaneda MD PhD DIABETIC HYPOGLYCEMIA, TYPE II ICD-250.80 Inactive Marvel 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 Roro Castaneda MD PhD SPECIAL SCREENING FOR MALIGNANT NEOPLASM OF PROSTATE ICD-V76.44 Inactive Alina Castaneda MD PhD SKIN LESION ICD-709.9 Roro Littleril MD PhD Dizziness ICD-780.4 Inactive Alina Castaneda MD PhD Confusion ICD-298.9 Inactive Alina Castaneda MD PhD Hypoglycemia ICD-251.2 Inactive Alina Castaneda MD PhD SINUSITIS, ACUTE ICD-461.9 Inactive Alina Castaneda MD PhD Medication List Medication Instructions Start Date Stop Date Generic Name NDC Status Provider Patient Instruction ACCU-CHEK ROSA INVITR STRP use strips with device to check blood sugars 3 times daily GLUCOSE BLOOD 25044394222 Active Alina Castaneda MD PhD Active ACCU-CHEK ROSA UZMA Use device to check blood sugars BLOOD GLUCOSE MONITORING SUPPL 46165326307 Active Alina Castaneda MD PhD Active TRUETEST TEST STRP check sugars 4x/day GLUCOSE BLOOD 49123507805 No Longer Active Alina Castaneda MD PhD Active MORPHINE SULFATE 30 MG TABS 1 pill by mouth twice daily, for pain MORPHINE SULFATE 83269405027 Active Alina Castaneda MD PhD Active ACYCLOVIR 400 MG ORAL TABS 1 pill three times daily x 5 days, for cold sore outbreak ACYCLOVIR 45172272950 No Longer Active Alina Castaneda MD PhD Active PENICILLIN V POTASSIUM 500 MG TABS 1 pill by mouth three times daily PENICILLIN V POTASSIUM 20344069142 No Longer Active Alina Castaneda MD PhD Active LATUDA 80 MG TABS 1 tab by mouth every evening LURASIDONE HCL 54220847993 Active Alina Castaneda MD PhD Active UROXATRAL 10 MG [id number] Take 1 tablet by mouth daily ALFUZOSIN HCL 66782212464 No Longer Active Alina Castaneda MD PhD Active THIOTHIXENE 5 MG CAPS by mouth twice a day THIOTHIXENE 86066786745 No Longer Active Alina Castaneda MD PhD Active ZYPREXA 7.5 MG TABS 1 at HS OLANZAPINE 48932436932 No Longer Active Alina Castaneda MD PhD Active HUMALOG 100 UNIT/ML SOLN Take 20 units with breakfast, 10u with lunch and suppetr. INSULIN LISPRO (HUMAN) 75568475256 Active Maljohn Ziglari HOUSE VISITOR Active LEVEMIR 100 UNIT/ML SOLN Take 70 u at 7-8pm INSULIN DETEMIR 49898941913 Active Maliheh Ziglari HOUSE VISITOR Active BD INSULIN SYRINGE 28G X 1/2" 1 ML MISC 1 four times per day INSULIN SYRINGE-NEEDLE U-100 55160359085 Active Malnivia Ziglari HOUSE VISITOR Active CYCLOBENZAPRINE HCL 10 MG TABS 1 tablet by mouth three times daily, scheduled CYCLOBENZAPRINE HCL 28904351857 Active Alina Castaneda MD PhD Active TOLTERODINE TARTRATE 2 MG TABS 1 pill twice daily, for bladder TOLTERODINE TARTRATE 24300421276 Active Alina Castaneda MD PhD Active DETROL LA 4 MG [id number] Take 1 tablet by mouth daily TOLTERODINE TARTRATE 17666879510 No Longer Active Alina Castaneda MD PhD Active HYDROCODONE-ACETAMINOPHEN 5-325 MG TABS 2 tabs by mouth three times daily as needed for pain HYDROCODONE-ACETAMINOPHEN 89130322942 Active Rhett Luther DO Active TERESE CONTOUR TEST STRP monitor blood sugars 3x/day GLUCOSE BLOOD 44851381800 No Longer Active Alina Castaneda MD PhD Active EQL TRUETEST TEST STRP Test blood sugar TID GLUCOSE BLOOD 63189162423 No Longer Active Alina Castaneda MD PhD Active FLUTICASONE PROPIONATE 50 MCG/ACT SUSP 2 sprays each nostril qDay x 30 days FLUTICASONE PROPIONATE 81544836357 No Longer Active Alina Castaneda MD PhD Active IBUPROFEN 200 MG TABS 1 Q 6 hr. PRN IBUPROFEN 56994972108 No Longer Active Alina Castaneda MD PhD Active NIACIN ER 500 MG CR-TABS 4 qHS (for triglycerides) NIACIN 76996161931 No Longer Active Alina Castaneda MD PhD Active ALFUZOSIN HCL ER 10 MG [id number]-VPK 1 tablet daily ALFUZOSIN HCL 76745940895 Active Vanesas Hickey MD Active CLONAZEPAM 1 MG TABS 1 pill by mouth three times daily CLONAZEPAM 34685167295 Active Alina Castaneda MD PhD Active LOVAZA 1 GM CAPS 4 daily (for triglycerides) [id number] ETHYL ESTERS 46001958111 Active Alina Castaneda MD PhD Active SAPHRIS 5 MG SUBL by mouth twice a day ASENAPINE MALEATE 71371184576 No Longer Active Marvel MARROQUIN Active ACETAMINOPHEN 500 MG TABS 2 Q 6 hr. PRN ACETAMINOPHEN 98242067487 No Longer Active Maljohn MENDOZAP Active VERAPAMIL HCL ER 120 MG [id number]-[id number] 1 pill by mouth twice a day, for headache prevention/control VERAPAMIL HCL 06999342539 Active Alina Castaneda MD PhD Active ORPHENADRINE CITRATE ER 100 MG [id number] 1 every 12 hr. as needed ORPHENADRINE CITRATE 30664875358 No Longer Active Alina Castaneda MD PhD Active NIACIN CR 500 MG CR-TABS 2 qHS NIACIN 60171586667 No Longer Active Alina Castaneda MD PhD Active AMOXICILLIN 500 MG CAPS 2 po BID x 10 days AMOXICILLIN 00390318770 No Longer Active Alina Castaneda MD PhD Active HYDROCODONE-ACETAMINOPHEN 7.5-325 MG TABS 1 four times a day as needed for pain HYDROCODONE-ACETAMINOPHEN 52731503328 No Longer Active Alina Castaneda MD PhD Active METFORMIN HCL ER 500 MG [id number]-LVX Take three tablets by mouth everyday METFORMIN HCL 12462777669 Active Mallashondaeh Ziglestela HOUSE VISITOR Active DOXEPIN HCL 10 MG CAPS Take 1 tablet by mouth daily DOXEPIN HCL 92017753417 No Longer Active Salina Han [facility] Active NAVANE 10 MG CAPS 1/2 tablet twice a day THIOTHIXENE No Longer Active Salina Han [facility] Active CYCLOBENZAPRINE HCL 10 MG TABS 1/2 tablet by mouth every 8 hours as needed for muscle spasms CYCLOBENZAPRINE HCL 14768993647 No Longer Active Alina Castaneda MD PhD Active BACTROBAN 2 % CREAM apply to ear and nose twice daily MUPIROCIN CALCIUM 18344496460 No Longer Active Alina Castaneda MD PhD Active HYDROCODONE-ACETAMINOPHEN 5-325 MG TABS take one tablet by mouth every four hours as needed for pain HYDROCODONE-ACETAMINOPHEN 95798899468 No Longer Active Alina Castaneda MD PhD Active ZOLPIDEM TARTRATE 10 MG TABS take at bedtime ZOLPIDEM TARTRATE 03928488626 Active Alina Castaneda MD PhD Active ZYPREXA 5 MG TABS take one tablet by mouth every evening OLANZAPINE 34933935613 No Longer Active Alina Castaenda MD PhD Active ALBUTEROL SULFATE 0.083 % NEBU SOLN one vial per nebulizer TID and PRN cough/ soa ALBUTEROL SULFATE 99706467190 No Longer Active Alina Castaneda MD PhD Active GUAIFENESIN 600 MG [id number]-PDD 1 tablet by mouth twice daily if needed for cough GUAIFENESIN 25561743991 No Longer Active Marevl Charles [facility] Active AZITHROMYCIN 500 MG SOLR 1 po q day AZITHROMYCIN 74491663801 No Longer Active Alina Castaneda MD PhD Active METOPROLOL SUCCINATE 100 MG ER14M-XLW 1 by mouth daily for blood pressure METOPROLOL SUCCINATE 36004681553 Active Alina Castaneda MD PhD Active PROMETHAZINE-CODEINE 6.25-10 MG/5ML SYRP 1 tsp po q 6 hours prn cough PROMETHAZINE-CODEINE 41116681979 No Longer Active Alina Castaneda MD PhD Active CEFDINIR 300 MG CAPS by mouth twice a day CEFDINIR 06440249936 No Longer Active Alina Castaneda MD PhD Active METFORMIN HCL 500 MG HE93H-BVB Take 3 tablets by mouth everyday METFORMIN HCL 82329553419 No Longer Active Alina Castaneda MD PhD Active LEVEMIR 100 UNIT/ML SOLN 90 units SQ qHS INSULIN DETEMIR 64193334697 No Longer Active Marvel MARROQUIN Active TOPROL XL 100 MG PP39U-MRB 1 @ HS METOPROLOL SUCCINATE 18080392722 No Longer Active Marvel MARROQUIN Active ALLOPURINOL 300 MG TABS Take one by mouth daily ALLOPURINOL 52056897273 Active Alina Castaneda MD PhD Active ZYPREXA 10 MG TABS Take one by mouth daily OLANZAPINE 26820897627 No Longer Active Alina Castaneda MD PhD Active NOVOLOG 100 UNIT/ML SOLN 40 units with every meal INSULIN ASPART 39962661877 No Longer Active Alina Castaneda MD PhD Active VERAPAMIL HCL CR 120 MG TAB CR 1 qPM VERAPAMIL HCL 03673993818 No Longer Active Salina Han Ariela Active ZYPREXA 15 MG TABS Take 1 tablet by mouth daily OLANZAPINE 98974911439 No Longer Active Marvel MARROQUIN Active LISINOPRIL 20 MG TABS 1 BID LISINOPRIL 19801677461 Active Alina Castaneda MD PhD Active ALBUTEROL SULFATE (2.5 MG/3ML) 0.083% NEBU 1 neb tid and prn cough ALBUTEROL SULFATE 58642904788 No Longer Active Alina Castaneda MD PhD Active FLUVOXAMINE MALEATE 100 MG TABS Take one (1) tablet by mouth am, 1/2 at noon, 1 pm FLUVOXAMINE MALEATE 43675038185 Active Alina Castaneda MD PhD Active TRAVATAN Z 0.004 % SOLN 1 gtt each eye daily TRAVOPROST 96034228186 Active CRYSTAL Suarez Active LANTUS 100 UNIT/ML SOLN 60 units sq q hs INSULIN GLARGINE 25510785440 No Longer Active CRYSTAL Suarez Active ALBUTEROL SULFATE (2.5 MG/3ML) 0.083% NEBU 1 neb tid and prn cough ALBUTEROL SULFATE (2.5 MG/3ML) 0.083% NEBU 871969 ALBUTEROL SULFATE Inactive ZYPREXA 15 MG TABS Take 1 tablet by mouth daily ZYPREXA 15 MG TABS 186372 OLANZAPINE Inactive VERAPAMIL HCL CR 120 MG TAB CR 1 qPM VERAPAMIL HCL CR 120 MG TAB CR VERAPAMIL HCL Inactive ZYPREXA 10 MG TABS Take one by mouth daily ZYPREXA 10 MG TABS 623776 OLANZAPINE Inactive TOPROL XL 100 MG [id number] 1 @ HS TOPROL XL 100 MG LZ00O-CVU METOPROLOL SUCCINATE Inactive LEVEMIR 100 UNIT/ML SOLN 90 units SQ qHS LEVEMIR 100 UNIT/ML SOLN INSULIN DETEMIR Inactive PROMETHAZINE-CODEINE 6.25-10 MG/5ML SYRP 1 tsp po q 6 hours prn cough PROMETHAZINE-CODEINE 6.25-10 MG/5ML SYRP 622663 PROMETHAZINE- CODEINE Inactive GUAIFENESIN 600 MG [id number]-ZAR 1 tablet by mouth twice daily if needed for cough GUAIFENESIN 600 MG BE00L-EAE GUAIFENESIN Inactive ALBUTEROL SULFATE 0.083 % NEBU SOLN one vial per nebulizer TID and PRN cough/ soa ALBUTEROL SULFATE 0.083 % NEBU SOLN 990888 ALBUTEROL SULFATE Inactive ZYPREXA 5 MG TABS take one tablet by mouth every evening ZYPREXA 5 MG TABS 548661 OLANZAPINE Inactive HYDROCODONE-ACETAMINOPHEN 5-325 MG TABS take one tablet by mouth every four hours as needed for pain HYDROCODONE-ACETAMINOPHEN 5-325 MG TABS 355254 HYDROCODONE-ACETAMINOPHEN Inactive BACTROBAN 2 % CREAM apply to ear and nose twice daily BACTROBAN 2 % CREAM 285734 MUPIROCIN CALCIUM Inactive CYCLOBENZAPRINE HCL 10 MG TABS 1/2 tablet by mouth every 8 hours as needed for muscle spasms CYCLOBENZAPRINE HCL 10 MG TABS 664031 CYCLOBENZAPRINE HCL Inactive NAVANE 10 MG CAPS 1/2 tablet twice a day NAVANE 10 MG CAPS THIOTHIXENE Inactive DOXEPIN HCL 10 MG CAPS Take 1 tablet by mouth daily DOXEPIN HCL 10 MG CAPS 4491193 DOXEPIN HCL Inactive HYDROCODONE-ACETAMINOPHEN 7.5-325 MG TABS 1 four times a day as needed for pain HYDROCODONE-ACETAMINOPHEN 7.5-325 MG TABS 425692 HYDROCODONE-ACETAMINOPHEN Inactive NIACIN CR 500 MG CR-TABS 2 qHS NIACIN CR 500 MG CR- TABS NIACIN Inactive ORPHENADRINE CITRATE ER 100 MG [id number] 1 every 12 hr. as needed ORPHENADRINE CITRATE ER 100 MG UP41X-ZCI ORPHENADRINE CITRATE Inactive ACETAMINOPHEN 500 MG TABS 2 Q 6 hr. PRN ACETAMINOPHEN 500 MG TABS 244183 ACETAMINOPHEN Inactive SAPHRIS 5 MG SUBL by mouth twice a day SAPHRIS 5 MG SUBL ASENAPINE MALEATE Inactive NIACIN ER 500 MG CR-TABS 4 qHS (for triglycerides) NIACIN ER 500 MG CR-TABS NIACIN Inactive IBUPROFEN 200 MG TABS 1 Q 6 hr. PRN IBUPROFEN 200 MG TABS 467376 IBUPROFEN Inactive FLUTICASONE PROPIONATE 50 MCG/ACT SUSP 2 sprays each nostril qDay x 30 days FLUTICASONE PROPIONATE 50 MCG/ACT SUSP 869630 FLUTICASONE PROPIONATE Inactive EQL TRUETEST TEST STRP Test blood sugar TID EQL TRUETEST TEST STRP GLUCOSE BLOOD Inactive TERESE CONTOUR TEST STRP monitor blood sugars 3x/day TERESE CONTOUR TEST STRP GLUCOSE BLOOD Inactive DETROL LA 4 MG AT80F-ZEQ Take 1 tablet by mouth daily DETROL LA 4 MG [id number]-NYD TOLTERODINE TARTRATE Inactive ZYPREXA 7.5 MG TABS 1 at HS ZYPREXA 7.5 MG TABS 176421 OLANZAPINE Inactive THIOTHIXENE 5 MG CAPS by mouth twice a day THIOTHIXENE 5 MG CAPS 326266 THIOTHIXENE Inactive UROXATRAL 10 MG IA36M-FIM Take 1 tablet by mouth daily UROXATRAL 10 MG ER41J-VJL ALFUZOSIN HCL Inactive ACYCLOVIR 400 MG ORAL TABS 1 pill three times daily x 5 days, for cold sore outbreak ACYCLOVIR 400 MG ORAL TABS 657873 ACYCLOVIR Inactive TRUETEST TEST STRP check sugars 4x/day TRUETEST TEST STRP GLUCOSE BLOOD Inactive CEFDINIR 300 MG CAPS by mouth twice a day CEFDINIR 300 MG CAPS 462992 CEFDINIR Inactive AZITHROMYCIN 500 MG SOLR 1 po q day AZITHROMYCIN 500 MG SOLR 699086 AZITHROMYCIN Inactive AMOXICILLIN 500 MG CAPS 2 po BID x 10 days AMOXICILLIN 500 MG CAPS 649260 AMOXICILLIN Inactive PENICILLIN V POTASSIUM 500 MG TABS 1 pill by mouth three times daily PENICILLIN V POTASSIUM 500 MG TABS 217183 PENICILLIN V POTASSIUM Inactive Immunizations Vaccine Administration [...] Fluvirin, Fluarix, Agriflu(>=18 yo)) Fluzone (>3 yrs.) [[id number]] Influenza, seasonal, injectable pneumococcal immunization administered Pneumovax [...] HGBA1C - Chemistry sodium, serum 130 mmol/L 562-795 3950/06/09 potassium, serum 4.0 mmol/L 3.5-5.2 chloride, serum 92 mmol/L 98-107 carbon dioxide, venous blood 22.1 mmol/L 21.0-32.0 blood glucose 60 mg/dL 65-110 calcium, serum 9.5 mg/dL 8.5-10.1 urea nitrogen, blood 14 mg/dL 7-18 creatinine, serum 1.30 mg/dL 0.60-1.30 hemoglobin A1C, blood, as % of total hemoglobin 6.0 % 4.3-6.0 sodium, serum 131 mmol/L 824-713 9767/12/30 potassium, serum 5.0 mmol/L 3.5-5.2 chloride, serum [...] 6.0 mg/dL 2.6-7.2 sodium, serum 130 mmol/L 679-939 1065/05/01 potassium, serum 5.2 mmol/L 3.5-5.2 chloride, serum [...] 0.40 mg/dL 0.00-1.00 cholesterol, serum 151 mg/dL 615-875 6909/05/01 triglyceride, serum, fasting 356 mg/dL 30-200 HDL [...] Panel - Chemistry sodium, serum 127 mmol/L 536-464 2905/10/27 potassium, serum 4.1 mmol/L 3.5-5.2 chloride, serum [...] BA - Chemistry sodium, serum 126 mmol/L 616-540 9533/02/26 potassium, serum 4.8 mmol/L 3.5-5.2 chloride, serum [...] total hemoglobin 6.9 % 4.3-6.0 Lab Report: BA1C - Chemistry hemoglobin A1C, blood, as % [...] mg/dL Encounters Code Encounter Date Provider Facility CPT-99138 Level 3 Est. Patient 10:09:22 DAY CAMP UNIT LEADER Alina Castaneda MD PhD [facility] CPT-89081 Level 3 Est. Patient 14:36:26 [facility] CPT-78934 Level 3 Est. Patient 13:34:47 DAY CAMP UNIT LEADER Alina Castaneda MD PhD [facility] CPT-23064 Level 3 Est. Patient 19:52:08 DAY CAMP UNIT LEADER [facility] CPT-35922 Level 3 Est. Patient 10:01:51 DAY CAMP UNIT LEADER Marvel [facility] CPT-83896 Level 3 Est. Patient 21:54:06 CDT Vanessa Hickey MD [facility]-62957 Level 3 Est. Patient 08:54:46 CDT Alina Castaneda MD PhD [facility] CPT-44849 Level 3 Est. Patient 09:32:11 CDT Marvel Gurdeepajayestela [facility]-70556 Level 3 Est. Patient 12:02:49 CDT Alina Castaneda MD [facility]-26675 Level 3 Est. Patient 19:17:33 CDT Alina Castaneda MD [facility] [place]08700 Level 3 Est. Patient 13:19:10 CDT Marvel Gurdeepajayestela [facility]-95978 Level 3 Est. Patient 08:20:05 CDT Alina Castaneda MD [facility]-78195 Level 3 Est. Patient 15:17:18 CDT Alina Castaneda MD [facility] [place]09110 Level 3 Est. Patient 14:25:36 DAY CAMP UNIT LEADER Marvel Charles [facility]-03530 Level 3 Est. Patient 10:09:15 DAY CAMP UNIT LEADER Marvel Charles [facility]-29729 Level 3 Est. Patient 21:28:43 CDT Alina Castaneda MD [facility]-96099 Level 3 Est. Patient 15:20:11 CDT Marvel Araceli [facility]-09776 Level 4 Est. Patient 19:08:12 CDT Alina Castaneda MD [facility] [place]84700 Level 3 Est. Patient 15:06:39 CDT Brooksjohn Charles [facility]-05721 Level 4 Est. Patient 17:48:15 CDT Alina Castaneda MD [facility] [place]39731 Level 3 Est. Patient 14:53:49 CDT Alina Castaneda MD [facility] [place]83580 Level 3 Est. Patient 09:35:16 CDT Alina Castaneda MD [facility]-58196 Level 3 Est. Patient 12:23:22 CDT Alina Castaneda MD [facility]-32016 Level 3 Est. Patient 16:19:15 CDT Alina Castaneda MD [facility] [place]62324 Level 3 Est. Patient 21:39:56 DAY CAMP UNIT LEADER Alina Castaneda MD [facility]-14538 Level 4 Est. Patient 14:12:56 DAY CAMP UNIT LEADER Alina Castaneda MD [facility]-40246 Level 2 Est. Patient 15:34:57 DAY CAMP UNIT LEADER Alina Castaneda MD [facility]-28049 Level 3 Est. Patient 12:17:04 DAY CAMP UNIT LEADER Alina Castaneda MD [facility]-08925 Level 3 Est. Patient 09:18:18 DAY CAMP UNIT LEADER Marvel Charles [facility]-38617 Level 2 Est. Patient 21:50:24 CDT Alina Castaneda MD [facility]-93616 Level 3 Est. Patient 09:17:28 CDT Marvel Charles [facility]-11876 Level 4 Est. Patient 18:54:02 CDT Alina Castaneda MD [facility] [place]81210 Level 3 Est. Patient 10:47:10 CDT Alina Castaneda MD [facility]-76747 Level 3 Est. Patient 09:22:20 CDT Marvel Charles [facility]-89311 Level 3 Est. Patient 16:39:43 CDT Marvel Charles [facility]-85235 Level 3 Est. Patient 16:05:16 CDT Alina [facility] MD [facility] CPT-05625 Level 3 Est. Patient 00:29:15 CDT Alina Castaneda MD [facility] CPT-57537 Level 3 Est. Patient 10:49:22 DAY CAMP UNIT LEADER Brooksnivia Thurstonestela [facility] CPT-46270 Level 3 Est. Patient 21:30:19 DAY CAMP UNIT LEADER Alina Castaneda [facility] CPT-26577 Level 4 Est. Patient 17:04:11 DAY CAMP UNIT LEADER [facility] CPT-98553 Level 3 Est. Patient 15:34:11 DAY CAMP UNIT LEADER [facility]-00470 Level 2 Est. Patient 12:51:58 DAY CAMP UNIT LEADER Alina Cast[facility]eda MD [facility] CPT-02920 Level 3 Est. Patient 13:20:01 DAY CAMP [employer]IT LEADER Alina Castaneda MD [facility] CPT-54893 Level 3 Est. Patient 09:23:35 CDT Alina Castaneda MD [facility] Procedures Code Procedure Name Date Entry Date Standard Description CPT-63384 Bladder Scan 21:54:06 CDT CPT-G0008 Administration of Influenza Virus Vaccine 13:05:26 CDT CPT-92064 Fluzone Quadrivalent Intramuscular Suspension 0.5 ML 13: 05:26 CDT CPT-58434 Administration single or combination vaccine inc oral 11 :49:51 CDT CPT-82490 Pneumovax 11:49:51 CDT CPT-70113 Ribs unilateral 2V 12:37:22 [employer] LE[employer]ER CPT-15095 Chest 2V Frontal and Lat 17:15:26 CDT CPT-96551 Abx/Therapy Injection 18:54:02 CDT CPT-J0696 Rocephin 1000 mg (Ceftriaxone) 16:00:32 CDT CPT-40125 Chest 2V Frontal and Lat 15:26:45 CDT CPT-92068 Chest 2V Frontal and Lat 10:23:27 CDT CPT-04306 Venipuncture Draw Fee 10:11:00 CDT CPT-86093 Administration single or combination vaccine inc oral 11 :56:38 CDT CPT-77338 Influenza split virus > age 3 11:56:38 CDT CPT-59922 Venipuncture Draw Fee 08:49:54 [employer] LE[employer]ER CPT-84255 EKG Trac and Interp 17:54:19 DAY CAMP [employer]IT LEADER
--- OUTSIDE RECORDS SUMMARY | 2018-07-02 20:10 | XMS REPORT | Clinical Summary ---
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 Active Alina Castaneda MD PhD Recurrent isolated sleep paralysis SPECIAL SCREENING FOR MALIGNANT NEOPLASM OF PROSTATE V76.44 Resolved Alina Castaneda MD PhD Screening for malignant neoplasms of prostate Hypoglycemia 251.2 Resolved Alina Castaneda MD PhD Hypoglycemia, unspecified Diabetes mellitus, type II 250.00 Active Zaineh Gurdeepajayari RN ADVICE Diabetes mellitus without mention of complication, type [...] ACUTE ICD-466.0 Inactive Alina Castaneda MD PhD HYPERTENSION ICD-401.9 Inactive Alina Castaneda MD PhD WOUND, OPEN, NOSE ICD-873.20 Inactive Alina Castaneda MD PhD PNEUMONIA, ORGANISM UNSPECIFIED ICD-486 Roro Castaneda MD PhD RIB PAIN, RIGHT SIDED ICD-786.50 Inactive Alina Castaneda MD PhD DIABETIC HYPOGLYCEMIA, TYPE II ICD-250.80 Inactive Marevl 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 Inactive Alina Castaneda [...] 5 days, for cold sore outbreak ACYCLOVIR 27322418889 No Longer Active Alina Castaneda MD PhD Active PENICILLIN V POTASSIUM 500 MG TABS 1 pill by mouth three times daily PENICILLIN V POTASSIUM 05505915956 No Longer Active Alina Castaneda MD PhD Active MORPHINE SULFATE 30 MG TABS 1 pill by mouth nightly, for pain MORPHINE SULFATE 99914746656 Active Alina Castaneda MD PhD Active LATUDA 80 MG TABS 1 tab by mouth every evening LURASIDONE HCL 43172511652 Active Alina Castaneda MD PhD Active UROXATRAL 10 MG [id number] Take 1 tablet by mouth daily ALFUZOSIN HCL 65096319556 No Longer Active Alina Castaneda MD PhD Active THIOTHIXENE 5 MG CAPS by mouth twice a day THIOTHIXENE 84839081741 No Longer Active Alina Castaneda MD PhD Active ZYPREXA 7.5 MG TABS 1 at HS OLANZAPINE 51207694740 No Longer Active Alina Castaneda MD PhD Active HUMALOG 100 UNIT/ML SOLN Take 20 units with breakfast, 10u with lunch and suppetr. INSULIN LISPRO (HUMAN) 08923053898 Active Marvel MARROQUIN Active LEVEMIR 100 UNIT/ML SOLN Take 70 u at 7-8pm INSULIN DETEMIR 99981725657 Active Marvel Mackenzieglari RN ADVICE Active BD INSULIN SYRINGE 28G X 1/2" 1 ML MISC 1 four times per day INSULIN SYRINGE-NEEDLE U-100 66312914704 Active Marvel Mackenzieglari RN ADVICE Active CYCLOBENZAPRINE HCL 10 MG TABS 1 tablet by mouth three times daily, scheduled CYCLOBENZAPRINE HCL 99897837816 Active Alina Castaneda MD PhD Active TOLTERODINE TARTRATE 2 MG TABS 1 pill twice daily, for bladder TOLTERODINE TARTRATE 89776488652 Active Alina Castaneda MD PhD Active DETROL LA 4 MG [id number] Take 1 tablet by mouth daily TOLTERODINE TARTRATE 99468717231 No Longer Active Alina Castaneda MD PhD Active HYDROCODONE-ACETAMINOPHEN 5-325 MG TABS 2 tabs by mouth three times daily as needed for pain HYDROCODONE-ACETAMINOPHEN 97108483644 Active Rhett Luther DO Active TERESE CONTOUR TEST STRP monitor blood sugars 3x/day GLUCOSE BLOOD 42949844469 No Longer Active Alina Castaneda MD PhD Active EQL TRUETEST TEST STRP Test blood sugar TID GLUCOSE BLOOD 56665101299 No Longer Active Alina Castaneda MD PhD Active FLUTICASONE PROPIONATE 50 MCG/ACT SUSP 2 sprays each nostril qDay x 30 days FLUTICASONE PROPIONATE 54290058282 No Longer Active Alina Castaneda MD PhD Active IBUPROFEN 200 MG TABS 1 Q 6 hr. PRN IBUPROFEN 04984509150 No Longer Active Alina Castaneda MD PhD Active NIACIN ER 500 MG CR-TABS 4 qHS (for triglycerides) NIACIN 45312419564 No Longer Active Alina Castaneda MD PhD Active TRUETEST TEST STRP check sugars 4x/day GLUCOSE BLOOD 13574844030 Active Marvel MENDOZAP Active ALFUZOSIN HCL ER 10 MG [id number] 1 tablet daily ALFUZOSIN HCL 26680992177 Active Vanessa Hickey MD Active CLONAZEPAM 1 MG TABS 1 pill by mouth three times daily CLONAZEPAM 50529123089 Active Alina Castaneda MD PhD Active LOVAZA 1 GM CAPS 4 daily (for triglycerides) [id number] ETHYL ESTERS 61283695148 Active Alina Castaneda MD PhD Active SAPHRIS 5 MG SUBL by mouth twice a day ASENAPINE MALEATE 56665091843 No Longer Active Marvel MARROQUIN Active ACETAMINOPHEN 500 MG TABS 2 Q 6 hr. PRN ACETAMINOPHEN 37164215019 No Longer Active Marvel MARROQUIN Active VERAPAMIL HCL ER 120 MG [id number] 1 pill by mouth twice a day, for headache prevention/control VERAPAMIL HCL 69813541458 Active Alina Castaneda MD PhD Active ORPHENADRINE CITRATE ER 100 MG [id number] 1 every 12 hr. as needed ORPHENADRINE CITRATE 99731669038 No Longer Active Alina Castaneda MD PhD Active NIACIN CR 500 MG CR-TABS 2 qHS NIACIN 33205194439 No Longer Active Alina Castaneda MD PhD Active AMOXICILLIN 500 MG CAPS 2 po BID x 10 days AMOXICILLIN 17846961337 No Longer Active Alina Castaneda MD PhD Active HYDROCODONE-ACETAMINOPHEN 7.5-325 MG TABS 1 four times a day as needed for pain HYDROCODONE-ACETAMINOPHEN 16518891573 No Longer Active Alina Castaneda MD PhD Active METFORMIN HCL ER 500 MG [id number]-CJU Take three tablets by mouth everyday METFORMIN HCL 56923908078 Active Marvel MARROQUIN Active DOXEPIN HCL 10 MG CAPS Take 1 tablet by mouth daily DOXEPIN HCL 50046975037 No Longer Active Salina ROJAS Active NAVANE 10 MG CAPS 1/2 tablet twice a day THIOTHIXENE No Longer Active Salina ROJAS Active CYCLOBENZAPRINE HCL 10 MG TABS 1/2 tablet by mouth every 8 hours as needed for muscle spasms CYCLOBENZAPRINE HCL 85529570244 No Longer Active Alina Castaneda MD PhD Active BACTROBAN 2 % CREAM apply to ear and nose twice daily MUPIROCIN CALCIUM 42522355612 No Longer Active Alina Castaneda MD PhD Active HYDROCODONE-ACETAMINOPHEN 5-325 MG TABS take one tablet by mouth every four hours as needed for pain HYDROCODONE-ACETAMINOPHEN 92925745401 No Longer Active Alina Castaneda MD PhD Active ZOLPIDEM TARTRATE 10 MG TABS take at bedtime ZOLPIDEM TARTRATE 44526289921 Active Alina Castaneda MD PhD Active ZYPREXA 5 MG TABS take one tablet by mouth every evening OLANZAPINE 08042664262 No Longer Active Alina Castaneda MD PhD Active ALBUTEROL SULFATE 0.083 % NEBU SOLN one vial per nebulizer TID and PRN cough/ soa ALBUTEROL SULFATE 15495529773 No Longer Active Alina Castaneda MD PhD Active GUAIFENESIN 600 MG [id number] 1 tablet by mouth twice daily if needed for cough GUAIFENESIN 40949568128 No Longer Active Marvel MENDOZAP Active AZITHROMYCIN 500 MG SOLR 1 po q day AZITHROMYCIN 12740714618 No Longer Active Alina Castaneda MD PhD Active METOPROLOL SUCCINATE 100 MG [id number]-PXC 1 by mouth daily for blood pressure METOPROLOL SUCCINATE 03781766535 Active Alina Castaneda MD PhD Active PROMETHAZINE-CODEINE 6.25-10 MG/5ML SYRP 1 tsp po q 6 hours prn cough PROMETHAZINE-CODEINE 83180869088 No Longer Active Alina Castaneda MD PhD Active CEFDINIR 300 MG CAPS by mouth twice a day CEFDINIR 71412365070 No Longer Active Alina Castaneda MD PhD Active METFORMIN HCL 500 MG [id number] Take 3 tablets by mouth everyday METFORMIN HCL 77566643837 No Longer Active Alina Castaneda MD PhD Active LEVEMIR 100 UNIT/ML SOLN 90 units SQ qHS INSULIN DETEMIR 60259698745 No Longer Active Marvel MARROQUIN Active TOPROL XL 100 MG [id number]-VHV 1 @ HS METOPROLOL SUCCINATE 53839698065 No Longer Active Marvel MARROQUIN Active ALLOPURINOL 300 MG TABS Take one by mouth daily ALLOPURINOL 84808577289 Active Alina Castaneda MD PhD Active ZYPREXA 10 MG TABS Take one by mouth daily OLANZAPINE 93708250205 No Longer Active Alina Castaneda MD PhD Active NOVOLOG 100 UNIT/ML SOLN 40 units with every meal INSULIN ASPART 60933221346 No Longer Active Alina Castaneda MD PhD Active VERAPAMIL HCL CR 120 MG TAB CR 1 qPM VERAPAMIL HCL 15655042862 No Longer Active Salina ROJAS Active ZYPREXA 15 MG TABS Take 1 tablet by mouth daily OLANZAPINE 62187583403 No Longer Active Marvel MARROQUIN Active LISINOPRIL 20 MG TABS 1 BID LISINOPRIL 37917850615 Active Alina Castaneda MD PhD Active ALBUTEROL SULFATE (2.5 MG/3ML) 0.083% NEBU 1 neb tid and prn cough ALBUTEROL SULFATE 69393763268 No Longer Active Alina Castaneda MD PhD Active FLUVOXAMINE MALEATE 100 MG TABS Take one (1) tablet by mouth am, 1/2 at noon, 1 pm FLUVOXAMINE MALEATE 37359947594 Active Alina Castaneda MD PhD Active TRAVATAN Z 0.004 % SOLN 1 gtt each eye daily TRAVOPROST 67182374704 Active CRYSTAL Suarez Active LANTUS 100 UNIT/ML SOLN 60 units sq q hs INSULIN GLARGINE 16348491776 No Longer Active CRYSTAL Suarez Active ALBUTEROL SULFATE (2.5 MG/3ML) 0.083% NEBU 1 neb tid and prn cough ALBUTEROL SULFATE (2.5 MG/3ML) 0.083% NEBU 754507 ALBUTEROL SULFATE Inactive ZYPREXA 15 MG TABS Take 1 tablet by mouth daily ZYPREXA 15 MG TABS 475720 OLANZAPINE Inactive VERAPAMIL HCL CR 120 MG TAB CR 1 qPM VERAPAMIL HCL CR 120 MG TAB CR VERAPAMIL HCL Inactive ZYPREXA 10 MG TABS Take one by mouth daily ZYPREXA 10 MG TABS 530773 OLANZAPINE Inactive TOPROL XL 100 MG [id number] 1 @ HS TOPROL XL 100 MG WM21G-[id number] METOPROLOL SUCCINATE Inactive LEVEMIR 100 UNIT/ML SOLN 90 units SQ qHS LEVEMIR 100 UNIT/ML SOLN INSULIN DETEMIR Inactive PROMETHAZINE-CODEINE 6.25-10 MG/5ML SYRP 1 tsp po q 6 hours prn cough PROMETHAZINE-CODEINE 6.25-10 MG/5ML SYRP 585489 PROMETHAZINE- CODEINE Inactive GUAIFENESIN 600 MG [id number]-DES 1 tablet by mouth twice daily if needed for cough GUAIFENESIN 600 MG [id number]-MHV GUAIFENESIN Inactive ALBUTEROL SULFATE 0.083 % NEBU SOLN one vial per nebulizer TID and PRN cough/ soa ALBUTEROL SULFATE 0.083 % NEBU SOLN 988920 ALBUTEROL SULFATE Inactive ZYPREXA 5 MG TABS take one tablet by mouth every evening ZYPREXA 5 MG TABS 520442 OLANZAPINE Inactive HYDROCODONE-ACETAMINOPHEN 5-325 MG TABS take one tablet by mouth every four hours as needed for pain HYDROCODONE-ACETAMINOPHEN 5-325 MG TABS 157175 HYDROCODONE-ACETAMINOPHEN Inactive BACTROBAN 2 % CREAM apply to ear and nose twice daily BACTROBAN 2 % CREAM 549984 MUPIROCIN CALCIUM Inactive CYCLOBENZAPRINE HCL 10 MG TABS 1/2 tablet by mouth every 8 hours as needed for muscle spasms CYCLOBENZAPRINE HCL 10 MG TABS 958228 CYCLOBENZAPRINE HCL Inactive NAVANE 10 MG CAPS 1/2 tablet twice a day NAVANE 10 MG CAPS THIOTHIXENE Inactive DOXEPIN HCL 10 MG CAPS Take 1 tablet by mouth daily DOXEPIN HCL 10 MG CAPS 0868621 DOXEPIN HCL Inactive HYDROCODONE-ACETAMINOPHEN 7.5-325 MG TABS 1 four times a day as needed for pain HYDROCODONE-ACETAMINOPHEN 7.5-325 MG TABS 439432 HYDROCODONE-ACETAMINOPHEN Inactive NIACIN CR 500 MG CR-TABS 2 qHS NIACIN CR 500 MG CR- TABS NIACIN Inactive ORPHENADRINE CITRATE ER 100 MG [id number] 1 every 12 hr. as needed ORPHENADRINE CITRATE ER 100 MG [id number] ORPHENADRINE CITRATE Inactive ACETAMINOPHEN 500 MG TABS 2 Q 6 hr. PRN ACETAMINOPHEN 500 MG TABS 475570 ACETAMINOPHEN Inactive SAPHRIS 5 MG SUBL by mouth twice a day SAPHRIS 5 MG SUBL ASENAPINE MALEATE Inactive NIACIN ER 500 MG CR-TABS 4 qHS (for triglycerides) NIACIN ER 500 MG CR-TABS NIACIN Inactive IBUPROFEN 200 MG TABS 1 Q 6 hr. PRN IBUPROFEN 200 MG TABS 135047 IBUPROFEN Inactive FLUTICASONE PROPIONATE 50 MCG/ACT SUSP 2 sprays each nostril qDay x 30 days FLUTICASONE PROPIONATE 50 MCG/ACT SUSP 889621 FLUTICASONE PROPIONATE Inactive EQL TRUETEST TEST STRP Test blood sugar TID EQL TRUETEST TEST STRP GLUCOSE BLOOD Inactive TERESE CONTOUR TEST STRP monitor blood sugars 3x/day TERESE CONTOUR TEST STRP GLUCOSE BLOOD Inactive DETROL LA 4 MG [id number] Take 1 tablet by mouth daily DETROL LA 4 MG [id number]-SCF TOLTERODINE TARTRATE Inactive ZYPREXA 7.5 MG TABS 1 at HS ZYPREXA 7.5 MG TABS 909246 OLANZAPINE Inactive THIOTHIXENE 5 MG CAPS by mouth twice a day THIOTHIXENE 5 MG CAPS 028686 THIOTHIXENE Inactive UROXATRAL 10 MG [id number]-ROZ Take 1 tablet by mouth daily UROXATRAL 10 MG [id number]-OPV ALFUZOSIN HCL Inactive ACYCLOVIR 400 MG ORAL TABS 1 pill three times daily x 5 days, for cold sore outbreak ACYCLOVIR 400 MG ORAL TABS 820629 ACYCLOVIR Inactive CEFDINIR 300 MG CAPS by mouth twice a day CEFDINIR 300 MG CAPS 163140 CEFDINIR Inactive AZITHROMYCIN 500 MG SOLR 1 po q day AZITHROMYCIN 500 MG SOLR 274540 AZITHROMYCIN Inactive AMOXICILLIN 500 MG CAPS 2 po BID x 10 days AMOXICILLIN 500 MG CAPS 209576 AMOXICILLIN Inactive PENICILLIN V POTASSIUM 500 MG TABS 1 pill by mouth three times daily PENICILLIN V POTASSIUM 500 MG TABS 920981 PENICILLIN V POTASSIUM Inactive Immunizations Vaccine Administration [...] Fluvirin, Fluarix, Agriflu(>=18 yo)) Fluzone (>3 yrs.) [[id number]] Influenza, seasonal, injectable pneumococcal immunization administered Pneumovax [...] HGBA1C - Chemistry sodium, serum 130 mmol/L 327-494 1076/06/09 potassium, serum 4.0 mmol/L 3.5-5.2 chloride, serum 92 mmol/L 98-107 carbon dioxide, venous blood 22.1 mmol/L 21.0-32.0 blood glucose 60 mg/dL 65-110 calcium, serum 9.5 mg/dL 8.5-10.1 urea nitrogen, blood 14 mg/dL 7-18 creatinine, serum 1.30 mg/dL 0.60-1.30 hemoglobin A1C, blood, as % of total hemoglobin 6.0 % 4.3-6.0 sodium, serum 131 mmol/L 880-450 7192/12/30 potassium, serum 5.0 mmol/L 3.5-5.2 chloride, serum [...] 6.0 mg/dL 2.6-7.2 sodium, serum 130 mmol/L 753-714 5299/05/01 potassium, serum 5.2 mmol/L 3.5-5.2 chloride, serum [...] 0.40 mg/dL 0.00-1.00 cholesterol, serum 151 mg/dL 238-620 0642/05/01 triglyceride, serum, fasting 356 mg/dL 30-200 HDL [...] Panel - Chemistry sodium, serum 127 mmol/L 058-967 7426/10/27 potassium, serum 4.1 mmol/L 3.5-5.2 chloride, serum [...] HGBA1C - Chemistry sodium, serum 126 mmol/L 524-521 1683/02/26 potassium, serum 4.8 mmol/L 3.5-5.2 chloride, serum [...] mg/dL Encounters Code Encounter Date Provider Facility CPT-35054 Level 3 Est. Patient 14:36:26 TELEPHOTO INSTALLER Marvel Araceli [facility]-71566 Level 3 Est. Patient 13:34:47 TELEPHOTO INSTALLER Alina Castaneda MD [facility]-82781 Level 3 Est. Patient 19:52:08 TELEPHOTO INSTALLER Alina Castaneda MD [facility] [place] Level 3 Est. Patient 10:01:51 [facility]-99605 Level 3 Est. Patient 21:54:06 CDT Vanessa Hickey MD [facility]-01879 Level 3 Est. Patient 08:54:46 CDT Alina Castaneda MD [facility]-53054 Level 3 Est. [facility]32[facility] Patient 12:02:49 CDT Alina Castaneda MD [facility] [place] Level 3 Est. Patient 19:17:33 CDT Alina Castaneda MD [facility]-84977 Level 3 Est. Patient 13:19:10 CDT Marvel Charles [facility]-55784 Level 3 Est. Patient 08:20:05 CDT Alina Castaneda MD [facility]-41999 Level 3 Est. Patient 15:17:18 CDT Alina Castaneda MD [facility] [place] Level 3 Est. Patient 14:25:36 [facility]PH[facility]ST[facility]-13363 Level 3 Est. Patient 10:09:15 TELEPHOTO INSTALLER Marvel Thurstonestela [facility]-92073 Level 3 Est. Patient 21:28:43 CDT Alina Castaneda MD [facility]-27137 Level 3 Est. Patient 15:20:11 [facility]-80594 Level 4 Est. Patient 19:08:12 CDT Alina Castaneda MD [facility]-37264 Level 3 Est. Patient 15:06:39 CDT Marvel Thurstonestela [facility]-33953 Level 4 Est. Patient 17:48:15 CDT Alina Castaneda MD [facility]-21114 Level 3 Est. Patient 14:53:49 CDT Alina Castaneda MD [facility]-11612 Level 3 Est. Patient 09:35:16 CDT Alina Castaneda MD [facility]-34057 Level 3 Est. Patient 12:23:22 CDT Alina Castaneda MD [facility]-84405 Level 3 Est. Patient 16:19:15 CDT Alina Castaneda MD [facility]-23839 Level 3 Est. Patient 21:39:56 TELEPHOTO INSTALLER Alina Castaneda MD [facility]-11547 Level 4 Est. Patient 14:12:56 TELEPHOTO INSTALLER Alina Castaneda MD [facility]-09868 Level 2 Est. Patient 15:34:57 TELEPHOTO INSTALLER Alina Castaneda MD [facility]-13285 Level 3 Est. Patient 12:17:04 TELEPHOTO INSTALLER Alina Castaneda MD [facility]-83037 Level 3 Est. Patient 09:18:18 TELEPHOTO INSTALLER Brooksjohn Charles [facility]-96223 Level 2 Est. Patient 21:50:24 CDT Alina Castaneda MD [facility]-38463 Level 3 Est. Patient 09:17:28 CDT Marvel Charles [facility]-69326 Level 4 Est. Patient 18:54:02 CDT Alina Castaneda MD [facility] [place] Level 3 Est. Patient 10:47:10 CDT Alina Castaneda MD [facility] [place] Level 3 Est. Patient 09:22:20 CDT Marvel Charles [facility]-67970 Level 3 Est. Patient 16:39:43 CDT Marvel Charles [facility]-46664 Level 3 Est. Patient 16:05:16 CDT Alina Castaneda MD [facility]-49597 Level 3 Est. Patient 00:29:15 CDT Alina Castaneda MD [facility] [place] Level 3 Est. Patient 10:49:22 TELEPHOTO INSTALLER Marvel Charles [facility]-06476 Level 3 Est. Patient 21:30:19 TELEPHOTO INSTALLER Alina Castaneda MD [facility]-53115 Level 4 Est. Patient 17:04:11 TELEPHOTO INSTALLER Marvel Charles [facility]-06463 Level 3 Est. Patient 15:34:11 TELEPHOTO INSTALLER Marvel Charles [facility]-38941 Level 2 Est. Patient 12:51:58 TELEPHOTO INSTALLER Alina Castaneda MD [facility] [place] Level 3 Est. Patient 13:20:01 TELEPHOTO INSTALLER Alina Castaneda MD PhD [facility] CPT-41488 Level 3 Est. Patient 09:23:35 CDT Alina Castaneda MD PhD [facility] Procedures Code Procedure Name Date Entry Date Standard Description CPT-58943 Bladder Scan 21:54:06 CDT CPT-G0008 Administration of Influenza Virus Vaccine 13:05:26 CDT CPT-68629 Fluzone Quadrivalent Intramuscular Suspension 0.5 ML 13: 05:26 CDT CPT-43936 Administration single or combination vaccine inc oral 11 :49:51 CDT CPT-15115 Pneumovax 11:49:51 CDT CPT-55157 Ribs unilateral 2V 12:37:22 TELEPHOTO INSTALLER CPT-78418 Chest 2V Frontal and Lat 17:15:26 CDT CPT-90573 Abx/Therapy Injection 18:54:02 CDT CPT-J0696 Rocephin 1000 mg (Ceftriaxone) 16:00:32 CDT CPT-59225 Chest 2V Frontal and Lat 15:26:45 CDT CPT-98000 Chest 2V Frontal and Lat 10:23:27 CDT CPT-57971 Venipuncture Draw Fee 10:11:00 CDT CPT-56060 Administration single or combination vaccine inc oral 11 :56:38 CDT CPT-01986 Influenza split virus > age 3 11:56:38 CDT CPT-71030 Venipuncture Draw Fee 08:49:54 TELEPHOTO INSTALLER CPT-20455 EKG Trac and Interp 17:54:19 TELEPHOTO INSTALLER
--- OUTSIDE RECORDS SUMMARY | 2018-07-02 20:12 | XMS REPORT | Clinical Summary ---
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 Alina Castaneda MD PhD Recurrent isolated sleep paralysis SPECIAL SCREENING FOR MALIGNANT NEOPLASM OF PROSTATE V76.44 Resolved Alina Castaneda MD PhD Screening for malignant neoplasms of prostate Hypoglycemia 251.2 Resolved Alina Castaneda MD PhD Hypoglycemia, unspecified Diabetes mellitus, type II 250.00 Active Zaineh Gurdeepajayari PRINCIPAL CONSULTANT Diabetes mellitus without mention of complication, [...] ACUTE ICD-466.0 Inactive Alina Castaneda MD PhD WOUND, OPEN, NOSE ICD-873.20 Roro Castaneda MD PhD PNEUMONIA, ORGANISM UNSPECIFIED ICD-486 Roro Castaneda MD PhD RIB PAIN, RIGHT SIDED ICD-786.50 Roro Castaneda MD PhD DIABETIC HYPOGLYCEMIA, TYPE II ICD-250.80 Inactive Marvel 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 Roro Castaneda MD PhD SPECIAL SCREENING FOR MALIGNANT NEOPLASM OF PROSTATE ICD-V76.44 Roro Castaneda MD PhD SKIN LESION ICD-709.9 Roro Littleril MD PhD SINUSITIS, ACUTE ICD-461.9 Inactive Alina Castaneda MD PhD Confusion ICD-298.9 Inactive Alina Castaneda MD PhD Hypoglycemia ICD-251.2 Inactive Alina Castaneda MD PhD Dizziness ICD-780.4 Inactive Alina Castaneda MD PhD Medication List Medication Instructions Start Date Stop Date Generic Name NDC Status Provider Patient Instruction ACCU-CHEK ROSA INVITR STRP use strips with device to check blood sugars 3 times daily GLUCOSE BLOOD 38161172488 Active Alina Castaneda MD PhD Active ACCU-CHEK ROSA UZMA Use device to check blood sugars BLOOD GLUCOSE MONITORING SUPPL 02373154721 Active Alina Castaneda MD PhD Active TRUETEST TEST STRP check sugars 4x/day GLUCOSE BLOOD 21926241101 No Longer Active Alina Castaneda MD PhD Active MORPHINE SULFATE 30 MG TABS 1 pill by mouth twice daily, for pain MORPHINE SULFATE 33839938823 Active Alina Castaneda MD PhD Active ACYCLOVIR 400 MG ORAL TABS 1 pill three times daily x 5 days, for cold sore outbreak ACYCLOVIR 35398705284 No Longer Active Alina Castaneda MD PhD Active PENICILLIN V POTASSIUM 500 MG TABS 1 pill by mouth three times daily PENICILLIN V POTASSIUM 26030436562 No Longer Active Alina Castaneda MD PhD Active LATUDA 80 MG TABS 1 tab by mouth every evening LURASIDONE HCL 43391969450 Active Alina Castaneda MD PhD Active UROXATRAL 10 MG ZP69S-LTP Take 1 tablet by mouth daily ALFUZOSIN HCL 54147374153 No Longer Active Alina Castaneda MD PhD Active THIOTHIXENE 5 MG CAPS by mouth twice a day THIOTHIXENE 30928559281 No Longer Active Alina Castaneda MD PhD Active ZYPREXA 7.5 MG TABS 1 at HS OLANZAPINE 59239843952 No Longer Active Alina Castaneda MD PhD Active HUMALOG 100 UNIT/ML SOLN Take 20 units with breakfast, 10u with lunch and suppetr. INSULIN LISPRO (HUMAN) 22069572223 Active Maljohn Ziglari PRINCIPAL CONSULTANT Active LEVEMIR 100 UNIT/ML SOLN Take 70 u at 7-8pm INSULIN DETEMIR 32790444745 Active Maliheh Ziglari PRINCIPAL CONSULTANT Active BD INSULIN SYRINGE 28G X 1/2" 1 ML MISC 1 four times per day INSULIN SYRINGE-NEEDLE U-100 34330447934 Active Maleh Ziglari PRINCIPAL CONSULTANT Active CYCLOBENZAPRINE HCL 10 MG TABS 1 tablet by mouth three times daily, scheduled CYCLOBENZAPRINE HCL 94100857847 Active Alina Castaneda MD PhD Active TOLTERODINE TARTRATE 2 MG TABS 1 pill twice daily, for bladder TOLTERODINE TARTRATE 49810692400 Active Alina Castaneda MD PhD Active DETROL LA 4 MG [id number] Take 1 tablet by mouth daily TOLTERODINE TARTRATE 47531294137 No Longer Active Alina Castaneda MD PhD Active HYDROCODONE-ACETAMINOPHEN 5-325 MG TABS 2 tabs by mouth three times daily as needed for pain HYDROCODONE-ACETAMINOPHEN 83705863072 Active Rhett Ltuher DO Active TERESE CONTOUR TEST STRP monitor blood sugars 3x/day GLUCOSE BLOOD 46516431625 No Longer Active Alina Castaneda MD PhD Active EQL TRUETEST TEST STRP Test blood sugar TID GLUCOSE BLOOD 79529449635 No Longer Active Alina Castaneda MD PhD Active FLUTICASONE PROPIONATE 50 MCG/ACT SUSP 2 sprays each nostril qDay x 30 days FLUTICASONE PROPIONATE 24934098175 No Longer Active Alina Castaneda MD PhD Active IBUPROFEN 200 MG TABS 1 Q 6 hr. PRN IBUPROFEN 66110752243 No Longer Active Alina Castaneda MD PhD Active NIACIN ER 500 MG CR-TABS 4 qHS (for triglycerides) NIACIN 80898240096 No Longer Active Alina Castaneda MD PhD Active ALFUZOSIN HCL ER 10 MG [id number] 1 tablet daily ALFUZOSIN HCL 87635391445 Active Vanessa Hickey MD Active CLONAZEPAM 1 MG TABS 1 pill by mouth three times daily CLONAZEPAM 38090061442 Active Alina Castaneda MD PhD Active LOVAZA 1 GM CAPS 4 daily (for triglycerides) OUGLE-1-EEKU ETHYL ESTERS 86111920168 Active Alina Castaneda MD PhD Active SAPHRIS 5 MG SUBL by mouth twice a day ASENAPINE MALEATE 65041285497 No Longer Active Marvel MARROQUIN Active ACETAMINOPHEN 500 MG TABS 2 Q 6 hr. PRN ACETAMINOPHEN 18100169055 No Longer Active Maljohn MENDOZAP Active VERAPAMIL HCL ER 120 MG [id number] 1 pill by mouth twice a day, for headache prevention/control VERAPAMIL HCL 94912169968 Active Alina Castaneda MD PhD Active ORPHENADRINE CITRATE ER 100 MG [id number]-[id number] 1 every 12 hr. as needed ORPHENADRINE CITRATE 87007774747 No Longer Active Alina Castaneda MD PhD Active NIACIN CR 500 MG CR-TABS 2 qHS NIACIN 21750471028 No Longer Active Alina Castaneda MD PhD Active AMOXICILLIN 500 MG CAPS 2 po BID x 10 days AMOXICILLIN 63228207654 No Longer Active Alina Castaneda MD PhD Active HYDROCODONE-ACETAMINOPHEN 7.5-325 MG TABS 1 four times a day as needed for pain HYDROCODONE-ACETAMINOPHEN 40770633436 No Longer Active Alina Castaneda MD PhD Active METFORMIN HCL ER 500 MG QG12H-BIW Take three tablets by mouth everyday METFORMIN HCL 40612767611 Active Mallashondaeh Ziglestela PRINCIPAL CONSULTANT Active DOXEPIN HCL 10 MG CAPS Take 1 tablet by mouth daily DOXEPIN HCL 23007692225 No Longer Active Salina Han [facility] Active NAVANE 10 MG CAPS 1/2 tablet twice a day THIOTHIXENE No Longer Active Salina Han [facility] Active CYCLOBENZAPRINE HCL 10 MG TABS 1/2 tablet by mouth every 8 hours as needed for muscle spasms CYCLOBENZAPRINE HCL 07174308944 No Longer Active Alina Castaneda MD PhD Active BACTROBAN 2 % CREAM apply to ear and nose twice daily MUPIROCIN CALCIUM 79479992642 No Longer Active Alina Castaneda MD PhD Active HYDROCODONE-ACETAMINOPHEN 5-325 MG TABS take one tablet by mouth every four hours as needed for pain HYDROCODONE-ACETAMINOPHEN 63811866241 No Longer Active Alina Castaneda MD PhD Active ZOLPIDEM TARTRATE 10 MG TABS take at bedtime ZOLPIDEM TARTRATE 38131297299 Active Alina Castaneda MD PhD Active ZYPREXA 5 MG TABS take one tablet by mouth every evening OLANZAPINE 26108934849 No Longer Active Alina Castaneda MD PhD Active ALBUTEROL SULFATE 0.083 % NEBU SOLN one vial per nebulizer TID and PRN cough/ soa ALBUTEROL SULFATE 80603766151 No Longer Active Alina Castaneda MD PhD Active GUAIFENESIN 600 MG [id number]-JIG 1 tablet by mouth twice daily if needed for cough GUAIFENESIN 28523286445 No Longer Active Marvel Charles [facility] Active AZITHROMYCIN 500 MG SOLR 1 po q day AZITHROMYCIN 06649116416 No Longer Active Alina Castaneda MD PhD Active METOPROLOL SUCCINATE 100 MG [id number] 1 by mouth daily for blood pressure METOPROLOL SUCCINATE 18086132118 Active Alina Castaneda MD PhD Active PROMETHAZINE-CODEINE 6.25-10 MG/5ML SYRP 1 tsp po q 6 hours prn cough PROMETHAZINE-CODEINE 51960313700 No Longer Active Alina Castaneda MD PhD Active CEFDINIR 300 MG CAPS by mouth twice a day CEFDINIR 52775800237 No Longer Active Alina Castaneda MD PhD Active METFORMIN HCL 500 MG XJ21K-LDR Take 3 tablets by mouth everyday METFORMIN HCL 05198696718 No Longer Active Alina Castaneda MD PhD Active LEVEMIR 100 UNIT/ML SOLN 90 units SQ qHS INSULIN DETEMIR 49949116797 No Longer Active Marvel MARROQUIN Active TOPROL XL 100 MG VT43S-RPK 1 @ HS METOPROLOL SUCCINATE 24952218687 No Longer Active Marvel MARROQUIN Active ALLOPURINOL 300 MG TABS Take one by mouth daily ALLOPURINOL 14951607684 Active Alina Castaneda MD PhD Active ZYPREXA 10 MG TABS Take one by mouth daily OLANZAPINE 74078457535 No Longer Active Alina Castaneda MD PhD Active NOVOLOG 100 UNIT/ML SOLN 40 units with every meal INSULIN ASPART 07059632184 No Longer Active Alina Castaneda MD PhD Active VERAPAMIL HCL CR 120 MG TAB CR 1 qPM VERAPAMIL HCL 72456251738 No Longer Active Salina Han Ariela Active ZYPREXA 15 MG TABS Take 1 tablet by mouth daily OLANZAPINE 12477710363 No Longer Active Marvel MARROQUIN Active LISINOPRIL 20 MG TABS 1 BID LISINOPRIL 71453744568 Active Alina Castaneda MD PhD Active ALBUTEROL SULFATE (2.5 MG/3ML) 0.083% NEBU 1 neb tid and prn cough ALBUTEROL SULFATE 46958711192 No Longer Active Alina Castaneda MD PhD Active FLUVOXAMINE MALEATE 100 MG TABS Take one (1) tablet by mouth am, 1/2 at noon, 1 pm FLUVOXAMINE MALEATE 20139608843 Active Alina Castaneda MD PhD Active TRAVATAN Z 0.004 % SOLN 1 gtt each eye daily TRAVOPROST 47611636737 Active CRYSTAL Suarez Active LANTUS 100 UNIT/ML SOLN 60 units sq q hs INSULIN GLARGINE 01057734295 No Longer Active CRYSTAL Suarez Active ALBUTEROL SULFATE (2.5 MG/3ML) 0.083% NEBU 1 neb tid and prn cough ALBUTEROL SULFATE (2.5 MG/3ML) 0.083% NEBU 883846 ALBUTEROL SULFATE Inactive ZYPREXA 15 MG TABS Take 1 tablet by mouth daily ZYPREXA 15 MG TABS 507890 OLANZAPINE Inactive VERAPAMIL HCL CR 120 MG TAB CR 1 qPM VERAPAMIL HCL CR 120 MG TAB CR VERAPAMIL HCL Inactive ZYPREXA 10 MG TABS Take one by mouth daily ZYPREXA 10 MG TABS 022079 OLANZAPINE Inactive TOPROL XL 100 MG VA64P-DCT 1 @ HS TOPROL XL 100 MG GO84V-SZU METOPROLOL SUCCINATE Inactive LEVEMIR 100 UNIT/ML SOLN 90 units SQ qHS LEVEMIR 100 UNIT/ML SOLN INSULIN DETEMIR Inactive PROMETHAZINE-CODEINE 6.25-10 MG/5ML SYRP 1 tsp po q 6 hours prn cough PROMETHAZINE-CODEINE 6.25-10 MG/5ML SYRP 222037 PROMETHAZINE- CODEINE Inactive GUAIFENESIN 600 MG DK66G-[id number] 1 tablet by mouth twice daily if needed for cough GUAIFENESIN 600 MG YU40K-LIR GUAIFENESIN Inactive ALBUTEROL SULFATE 0.083 % NEBU SOLN one vial per nebulizer TID and PRN cough/ soa ALBUTEROL SULFATE 0.083 % NEBU SOLN 753543 ALBUTEROL SULFATE Inactive ZYPREXA 5 MG TABS take one tablet by mouth every evening ZYPREXA 5 MG TABS 616519 OLANZAPINE Inactive HYDROCODONE-ACETAMINOPHEN 5-325 MG TABS take one tablet by mouth every four hours as needed for pain HYDROCODONE-ACETAMINOPHEN 5-325 MG TABS 813426 HYDROCODONE-ACETAMINOPHEN Inactive BACTROBAN 2 % CREAM apply to ear and nose twice daily BACTROBAN 2 % CREAM 855518 MUPIROCIN CALCIUM Inactive CYCLOBENZAPRINE HCL 10 MG TABS 1/2 tablet by mouth every 8 hours as needed for muscle spasms CYCLOBENZAPRINE HCL 10 MG TABS 237848 CYCLOBENZAPRINE HCL Inactive NAVANE 10 MG CAPS 1/2 tablet twice a day NAVANE 10 MG CAPS THIOTHIXENE Inactive DOXEPIN HCL 10 MG CAPS Take 1 tablet by mouth daily DOXEPIN HCL 10 MG CAPS 9755372 DOXEPIN HCL Inactive HYDROCODONE-ACETAMINOPHEN 7.5-325 MG TABS 1 four times a day as needed for pain HYDROCODONE-ACETAMINOPHEN 7.5-325 MG TABS 242393 HYDROCODONE-ACETAMINOPHEN Inactive NIACIN CR 500 MG CR-TABS 2 qHS NIACIN CR 500 MG CR- TABS NIACIN Inactive ORPHENADRINE CITRATE ER 100 MG OH55T-VHW 1 every 12 hr. as needed ORPHENADRINE CITRATE ER 100 MG [id number] ORPHENADRINE CITRATE Inactive ACETAMINOPHEN 500 MG TABS 2 Q 6 hr. PRN ACETAMINOPHEN 500 MG TABS 568769 ACETAMINOPHEN Inactive SAPHRIS 5 MG SUBL by mouth twice a day SAPHRIS 5 MG SUBL ASENAPINE MALEATE Inactive NIACIN ER 500 MG CR-TABS 4 qHS (for triglycerides) NIACIN ER 500 MG CR-TABS NIACIN Inactive IBUPROFEN 200 MG TABS 1 Q 6 hr. PRN IBUPROFEN 200 MG TABS 626321 IBUPROFEN Inactive FLUTICASONE PROPIONATE 50 MCG/ACT SUSP 2 sprays each nostril qDay x 30 days FLUTICASONE PROPIONATE 50 MCG/ACT SUSP 320091 FLUTICASONE PROPIONATE Inactive EQL TRUETEST TEST STRP Test blood sugar TID EQL TRUETEST TEST STRP GLUCOSE BLOOD Inactive TERESE CONTOUR TEST STRP monitor blood sugars 3x/day TERESE CONTOUR TEST STRP GLUCOSE BLOOD Inactive DETROL LA 4 MG ON54E-RLJ Take 1 tablet by mouth daily DETROL LA 4 MG [id number]-KAK TOLTERODINE TARTRATE Inactive ZYPREXA 7.5 MG TABS 1 at HS ZYPREXA 7.5 MG TABS 867222 OLANZAPINE Inactive THIOTHIXENE 5 MG CAPS by mouth twice a day THIOTHIXENE 5 MG CAPS 543027 THIOTHIXENE Inactive UROXATRAL 10 MG SL16C-RWF Take 1 tablet by mouth daily UROXATRAL 10 MG WU26H-XIM ALFUZOSIN HCL Inactive ACYCLOVIR 400 MG ORAL TABS 1 pill three times daily x 5 days, for cold sore outbreak ACYCLOVIR 400 MG ORAL TABS 548769 ACYCLOVIR Inactive TRUETEST TEST STRP check sugars 4x/day TRUETEST TEST STRP GLUCOSE BLOOD Inactive CEFDINIR 300 MG CAPS by mouth twice a day CEFDINIR 300 MG CAPS 815431 CEFDINIR Inactive AZITHROMYCIN 500 MG SOLR 1 po q day AZITHROMYCIN 500 MG SOLR 627144 AZITHROMYCIN Inactive AMOXICILLIN 500 MG CAPS 2 po BID x 10 days AMOXICILLIN 500 MG CAPS 685654 AMOXICILLIN Inactive PENICILLIN V POTASSIUM 500 MG TABS 1 pill by mouth three times daily PENICILLIN V POTASSIUM 500 MG TABS 655817 PENICILLIN V POTASSIUM Inactive Immunizations Vaccine Administration [...] Fluvirin, Fluarix, Agriflu(>=18 yo)) Fluzone (>3 yrs.) [[id number]] Influenza, seasonal, injectable pneumococcal immunization administered Pneumovax [...] HGBA1C - Chemistry sodium, serum 130 mmol/L 141-788 2720/06/09 potassium, serum 4.0 mmol/L 3.5-5.2 chloride, serum 92 mmol/L 98-107 carbon dioxide, venous blood 22.1 mmol/L 21.0-32.0 blood glucose 60 mg/dL 65-110 calcium, serum 9.5 mg/dL 8.5-10.1 urea nitrogen, blood 14 mg/dL 7-18 creatinine, serum 1.30 mg/dL 0.60-1.30 hemoglobin A1C, blood, as % of total hemoglobin 6.0 % 4.3-6.0 sodium, serum 131 mmol/L 725-300 9022/12/30 potassium, serum 5.0 mmol/L 3.5-5.2 chloride, serum [...] 6.0 mg/dL 2.6-7.2 sodium, serum 130 mmol/L 584-564 8789/05/01 potassium, serum 5.2 mmol/L 3.5-5.2 chloride, serum [...] 0.40 mg/dL 0.00-1.00 cholesterol, serum 151 mg/dL 779-348 5999/05/01 triglyceride, serum, fasting 356 mg/dL 30-200 HDL [...] Panel - Chemistry sodium, serum 127 mmol/L 792-827 2888/10/27 potassium, serum 4.1 mmol/L 3.5-5.2 chloride, serum [...] BA - Chemistry sodium, serum 126 mmol/L 129-456 6887/02/26 potassium, serum 4.8 mmol/L 3.5-5.2 chloride, serum [...] mg/dL Encounters Code Encounter Date Provider Facility CPT-53152 Level 3 Est. Patient 10:09:22 AUTO SERVICE STATION ATTENDANT Alina Castaneda MD PhD [facility] CPT-34900 Level 3 Est. Patient 14:36:26 AUTO SERVICE STATION ATTENDANT [facility] CPT-42988 Level 3 Est. Patient 13:34:47 AUTO SERVICE STATION ATTENDANT Alina Castaneda MD PhD [facility] CPT-75943 Level 3 Est. Patient 19:52:08 AUTO SERVICE STATION ATTENDANT Alina Castaneda MD [facility] CPT-14492 Level 3 Est. Patient 10:01:51 AUTO SERVICE STATION ATTENDANT Marvel Charles [facility] CPT-71699 Level 3 Est. Patient 21:54:06 CDT Vanessa Hickey MD [facility]-18734 Level 3 Est. Patient 08:54:46 CDT Alina Castaneda MD PhD [facility] CPT-27337 Level 3 Est. Patient 09:32:11 CDT Marvel Gurdeepajayestela [facility]-56276 Level 3 Est. Patient 12:02:49 CDT Alina Castaneda MD [facility]-65926 Level 3 Est. Patient 19:17:33 CDT Alina Castaneda MD [facility]59561 Level 3 Est. Patient 13:19:10 CDT Marvel Gurdeepajayestela [facility]-86139 Level 3 Est. Patient 08:20:05 CDT Alina Castaneda MD [facility]-32037 Level 3 Est. Patient 15:17:18 CDT Alina Castaneda MD [facility]09206 Level 3 Est. Patient 14:25:36 AUTO SERVICE STATION ATTENDANT Marvel Charles [facility]-05998 Level 3 Est. Patient 10:09:15 AUTO SERVICE STATION ATTENDANT Marvel Charles [facility]-76226 Level 3 Est. Patient 21:28:43 CDT Alina Castaneda MD [facility]-18985 Level 3 Est. Patient 15:20:11 CDT Marvel Araceli [facility]-11886 Level 4 Est. Patient 19:08:12 CDT Alina Castaneda MD [facility]30711 Level 3 Est. Patient 15:06:39 CDT Brooksjohn Charles [facility]-95273 Level 4 Est. Patient 17:48:15 CDT Alina Castaneda MD [facility]26358 Level 3 Est. Patient 14:53:49 CDT Alina Castaneda MD [facility]70485 Level 3 Est. Patient 09:35:16 CDT Alina Castaneda MD [facility]-34678 Level 3 Est. Patient 12:23:22 CDT Alian Castaneda MD [facility]-93673 Level 3 Est. Patient 16:19:15 CDT Alina Castaneda MD [facility]74759 Level 3 Est. Patient 21:39:56 AUTO SERVICE STATION ATTENDANT Alina Castaneda MD [facility]-62178 Level 4 Est. Patient 14:12:56 AUTO SERVICE STATION ATTENDANT Alina Castaneda MD [facility]-91107 Level 2 Est. Patient 15:34:57 AUTO SERVICE STATION ATTENDANT Alina Castaneda MD [facility]-50788 Level 3 Est. Patient 12:17:04 AUTO SERVICE STATION ATTENDANT Alina Castaneda MD [facility]-05984 Level 3 Est. Patient 09:18:18 AUTO SERVICE STATION ATTENDANT Marvel Charles [facility]-88158 Level 2 Est. Patient 21:50:24 CDT Alina Castaneda MD [facility]-13720 Level 3 Est. Patient 09:17:28 CDT Marvel Charles [facility]-96774 Level 4 Est. Patient 18:54:02 CDT Alina Castaneda MD [facility]15044 Level 3 Est. Patient 10:47:10 CDT Alina Castaneda MD [facility]-08632 Level 3 Est. Patient 09:22:20 CDT Marvel Charles [facility]-36080 Level 3 Est. Patient 16:39:43 CDT Marvel Charles [facility]-74995 Level 3 Est. Patient 16:05:16 CDT Alina Castaneda MD [facility] CPT-60155 Level 3 Est. Patient 00:29:15 CDT Alina Castaneda MD [facility] CPT-49103 Level 3 Est. Patient 10:49:22 AUTO SERVICE STATION ATTENDANT Brooksnivia Thurstonestela [facility] CPT-69583 Level 3 Est. Patient 21:30:19 AUTO SERVICE STATION ATTENDANT Alina Castaneda MD [facility] CPT-62692 Level 4 Est. Patient 17:04:11 AUTO SERVICE STATION ATTENDANT [facility] CPT-91282 Level 3 Est. Patient 15:34:11 AUTO SERVICE STATION ATTENDANT [facility]PT-31211 Level 2 Est. Patient 12:51:58 AUTO SERVICE STATION ATTENDANT Alina Castaneda MD [facility] CPT-17371 Level 3 Est. Patient 13:20:01 AUTO SERVICE STATION ATTENDANT Alina Castaneda MD [facility] CPT-43361 Level 3 Est. Patient 09:23:35 CDT Alina Castaneda MD [facility] Procedures Code Procedure Name Date Entry Date Standard Description CPT-06318 Bladder Scan 21:54:06 CDT CPT-G0008 Administration of Influenza Virus Vaccine 13:05:26 CDT CPT-80548 Fluzone Quadrivalent Intramuscular Suspension 0.5 ML 13: 05:26 CDT CPT-14676 Administration single or combination vaccine inc oral 11 :49:51 CDT CPT-02313 Pneumovax 11:49:51 CDT CPT-25450 Ribs unilateral 2V 12:37:22 AUTO SERVICE STATION ATTENDANT CPT-51694 Chest 2V Frontal and Lat 17:15:26 CDT CPT-35072 Abx/Therapy Injection 18:54:02 CDT CPT-J0696 Rocephin 1000 mg (Ceftriaxone) 16:00:32 CDT CPT-73085 Chest 2V Frontal and Lat 15:26:45 CDT CPT-66129 Chest 2V Frontal and Lat 10:23:27 CDT CPT-39325 Venipuncture Draw Fee 10:11:00 CDT CPT-70529 Administration single or combination vaccine inc oral 11 :56:38 CDT CPT-29993 Influenza split virus > age 3 11:56:38 CDT CPT-79524 Venipuncture Draw Fee 08:49:54 AUTO SERVICE STATION ATTENDANT CPT-50323 EKG Trac and Interp 17:54:19 AUTO SERVICE STATION ATTENDANT
--- OUTSIDE RECORDS SUMMARY | 2018-07-02 20:14 | XMS REPORT | Clinical Summary ---
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 Alina Castaneda MD PhD Recurrent isolated sleep paralysis SPECIAL SCREENING FOR MALIGNANT NEOPLASM OF PROSTATE V76.44 Resolved Alina Castaneda MD PhD Screening for malignant neoplasms of prostate Hypoglycemia 251.2 Resolved Alina Castaneda MD PhD Hypoglycemia, unspecified Diabetes mellitus, type II 250.00 Active Mallashondaeh Bertrandari [employer] Diabetes mellitus without mention of complication, type [...] STRP check blood sugars 3x/day GLUCOSE BLOOD 32302806313 Active Malihnivia Ziglari [employer] Active ACCU-CHEK ROSA UZMA Use device to check blood sugars BLOOD GLUCOSE MONITORING SUPPL 75736127383 No Longer Active Mallashondaeh Ziglari [employer] Active ACCU-CHEK ROSA INVITR STRP use strips with device to check blood sugars 3 times daily GLUCOSE BLOOD 06681210313 No Longer Active Mallashondaeh 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 [employer] Active VERAPAMIL HCL ER 180 MG ORAL CR-TABS 1 pill by mouth twice daily, for migraine prevention VERAPAMIL HCL 15874724926 Active Alina Castaneda MD PhD Active CYCLOBENZAPRINE HCL 10 MG TABS 1 tablet by mouth three times daily, scheduled CYCLOBENZAPRINE HCL 78356413952 No Longer Active Alina Castaneda MD PhD Active HUMALOG 100 UNIT/ML SOLN Take 20 units with breakfast, 10u with lunch and suppetr. INSULIN LISPRO (HUMAN) 56044836588 No Longer Active Alina Castaneda MD PhD Active TRUETEST TEST STRP check sugars 4x/day GLUCOSE BLOOD 19072252853 No Longer Active Alina Castaneda MD PhD Active MORPHINE SULFATE 30 MG TABS 1 pill by mouth twice daily, for pain MORPHINE SULFATE 35813611759 Active Alina Castaneda MD PhD Active ACYCLOVIR 400 MG ORAL TABS 1 pill three times daily x 5 days, for cold sore outbreak ACYCLOVIR 77796172027 No Longer Active Alina Castaneda MD PhD Active PENICILLIN V POTASSIUM 500 MG TABS 1 pill by mouth three times daily PENICILLIN V POTASSIUM 14960177304 No Longer Active Alina Castaneda MD PhD Active LATUDA 80 MG TABS 1 tab by mouth every evening LURASIDONE HCL 63057024859 Active Alina Castaneda MD PhD Active UROXATRAL 10 MG [id number]-[id number] Take 1 tablet by mouth daily ALFUZOSIN HCL 64361108287 No Longer Active Alina Castaneda MD PhD Active THIOTHIXENE 5 MG CAPS by mouth twice a day THIOTHIXENE 44488001343 No Longer Active Alina Castaneda MD PhD Active ZYPREXA 7.5 MG TABS 1 at HS OLANZAPINE 11569951834 No Longer Active Alina Castaneda MD PhD Active LEVEMIR 100 UNIT/ML SOLN Take 70 u at 7-8pm INSULIN DETEMIR 91713732146 Active Maliheh Ziglari [employer] Active BD INSULIN SYRINGE 28G X 1/2" 1 ML MISC 1 four times per day INSULIN SYRINGE-NEEDLE U-100 73859465913 Active Mallashondaeh Ziglari [employer] Active TOLTERODINE TARTRATE 2 MG TABS 1 pill twice daily, for bladder TOLTERODINE TARTRATE 46379604631 Active Alina Castaneda MD PhD Active DETROL LA 4 MG [id number] Take 1 tablet by mouth daily TOLTERODINE TARTRATE 18781888125 No Longer Active Alina Castaneda MD PhD Active HYDROCODONE-ACETAMINOPHEN 5-325 MG TABS 2 tabs by mouth three times daily as needed for pain HYDROCODONE-ACETAMINOPHEN 79945852065 Active Alina Castaneda MD PhD Active TERESE CONTOUR TEST STRP monitor blood sugars 3x/day GLUCOSE BLOOD 43454452379 No Longer Active Alina Castaneda MD PhD Active EQL TRUETEST TEST STRP Test blood sugar TID GLUCOSE BLOOD 15371824499 No Longer Active Alina Castaneda MD PhD Active FLUTICASONE PROPIONATE 50 MCG/ACT SUSP 2 sprays each nostril qDay x 30 days FLUTICASONE PROPIONATE 95817001654 No Longer Active Alina Castaneda MD PhD Active IBUPROFEN 200 MG TABS 1 Q 6 hr. PRN IBUPROFEN 94738578846 No Longer Active Alina Castaneda MD PhD Active NIACIN ER 500 MG CR-TABS 4 qHS (for triglycerides) NIACIN 78478589275 No Longer Active Alina Castaneda MD PhD Active ALFUZOSIN HCL ER 10 MG [id number] 1 tablet daily ALFUZOSIN HCL 31364828873 Active Vanessa Hickey MD Active CLONAZEPAM 1 MG TABS 1 pill by mouth three times daily CLONAZEPAM 02989913756 Active Alina Castaneda MD PhD Active LOVAZA 1 GM CAPS 4 daily (for triglycerides) GOWUT-0-OFTD ETHYL ESTERS 73620387064 Active Alina Castaneda MD PhD Active SAPHRIS 5 MG SUBL by mouth twice a day ASENAPINE MALEATE 83995435515 No Longer Active Maliheh Ziglari [employer] Active ACETAMINOPHEN 500 MG TABS 2 Q 6 hr. PRN ACETAMINOPHEN 28353882854 No Longer Active Maliheh Ziglari [employer] Active ORPHENADRINE CITRATE ER 100 MG GI12H-QOC 1 every 12 hr. as needed ORPHENADRINE CITRATE 87690881562 No Longer Active Alina Castaneda MD PhD Active NIACIN CR 500 MG CR-TABS 2 qHS NIACIN 11879800381 No Longer Active Alina Castaneda MD PhD Active AMOXICILLIN 500 MG CAPS 2 po BID x 10 days AMOXICILLIN 83497912649 No Longer Active Alina Castaneda MD PhD Active HYDROCODONE-ACETAMINOPHEN 7.5-325 MG TABS 1 four times a day as needed for pain HYDROCODONE-ACETAMINOPHEN 65123256368 No Longer Active Alina Castaneda MD PhD Active METFORMIN HCL ER 500 MG OJ35M-TAJ Take three tablets by mouth everyday METFORMIN HCL 15734147913 Active Marvel MARROQUIN Active DOXEPIN HCL 10 MG CAPS Take 1 tablet by mouth daily DOXEPIN HCL 23263998890 No Longer Active Salina Han A Active NAVANE 10 MG CAPS 1/2 tablet twice a day THIOTHIXENE No Longer Active Salina Han A Active CYCLOBENZAPRINE HCL 10 MG TABS 1/2 tablet by mouth every 8 hours as needed for muscle spasms CYCLOBENZAPRINE HCL 07166994809 No Longer Active Alina Castaneda MD PhD Active BACTROBAN 2 % CREAM apply to ear and nose twice daily MUPIROCIN CALCIUM 29051448970 No Longer Active Alina Castaneda MD PhD Active HYDROCODONE-ACETAMINOPHEN 5-325 MG TABS take one tablet by mouth every four hours as needed for pain HYDROCODONE-ACETAMINOPHEN 23962945721 No Longer Active Alina Castaneda MD PhD Active ZOLPIDEM TARTRATE 10 MG TABS take at bedtime ZOLPIDEM TARTRATE 86373832843 Active Alina Castaneda MD PhD Active ZYPREXA 5 MG TABS take one tablet by mouth every evening OLANZAPINE 97988760265 No Longer Active Alina Castaneda MD PhD Active ALBUTEROL SULFATE 0.083 % NEBU SOLN one vial per nebulizer TID and PRN cough/ soa ALBUTEROL SULFATE 48973731096 No Longer Active Alina Castaneda MD PhD Active GUAIFENESIN 600 MG DD80E-GLQ 1 tablet by mouth twice daily if needed for cough GUAIFENESIN 09340636770 No Longer Active Marvel MARROQUIN Active AZITHROMYCIN 500 MG SOLR 1 po q day AZITHROMYCIN 01236251412 No Longer Active Alina Castaneda MD PhD Active METOPROLOL SUCCINATE 100 MG UN38S-LZB 1 by mouth daily for blood pressure METOPROLOL SUCCINATE 10479058829 Active Alina Castaneda MD PhD Active PROMETHAZINE-CODEINE 6.25-10 MG/5ML SYRP 1 tsp po q 6 hours prn cough PROMETHAZINE-CODEINE 71043484959 No Longer Active Alina Castaneda MD PhD Active CEFDINIR 300 MG CAPS by mouth twice a day CEFDINIR 20128719661 No Longer Active Alina Castaneda MD PhD Active METFORMIN HCL 500 MG WE87S-QGD Take 3 tablets by mouth everyday METFORMIN HCL 73927077040 No Longer Active Alina Castaneda MD PhD Active LEVEMIR 100 UNIT/ML SOLN 90 units SQ qHS INSULIN DETEMIR 80927174134 No Longer Active Marvel MARROQUIN Active TOPROL XL 100 MG WO47R-SRI 1 @ HS METOPROLOL SUCCINATE 24724970638 No Longer Active Marvel MARROQUIN Active ALLOPURINOL 300 MG TABS Take one by mouth daily ALLOPURINOL 09445821912 Active Alina Castaneda MD PhD Active ZYPREXA 10 MG TABS Take one by mouth daily OLANZAPINE 15945121530 No Longer Active Alina Castaneda MD PhD Active NOVOLOG 100 UNIT/ML SOLN 40 units with every meal INSULIN ASPART 69100020980 No Longer Active Alina Castaneda MD PhD Active VERAPAMIL HCL CR 120 MG TAB CR 1 qPM VERAPAMIL HCL 25837416283 No Longer Active Salina Han [facility] Active ZYPREXA 15 MG TABS Take 1 tablet by mouth daily OLANZAPINE 36776403507 No Longer Active Marvel MARROQUIN Active LISINOPRIL 20 MG TABS 1 BID LISINOPRIL 83867836500 Active Alina Castaneda MD PhD Active ALBUTEROL SULFATE (2.5 MG/3ML) 0.083% NEBU 1 neb tid and prn cough ALBUTEROL SULFATE 57211591152 No Longer Active Alina Castaneda MD PhD Active FLUVOXAMINE MALEATE 100 MG TABS Take one (1) tablet by mouth am, 1/2 at noon, 1 pm FLUVOXAMINE MALEATE 72215297056 Active Alina Castaneda MD PhD Active TRAVATAN Z 0.004 % SOLN 1 gtt each eye daily TRAVOPROST 49356177186 Active CRYSTAL Suarez Active LANTUS 100 UNIT/ML SOLN 60 units sq q hs INSULIN GLARGINE 59056886762 No Longer Active CRYSTAL Suarez Active ALBUTEROL SULFATE (2.5 MG/3ML) 0.083% NEBU 1 neb tid and prn cough ALBUTEROL SULFATE (2.5 MG/3ML) 0.083% NEBU 564309 ALBUTEROL SULFATE Inactive ZYPREXA 15 MG TABS Take 1 tablet by mouth daily ZYPREXA 15 MG TABS 709370 OLANZAPINE Inactive VERAPAMIL HCL CR 120 MG TAB CR 1 qPM VERAPAMIL HCL CR 120 MG TAB CR VERAPAMIL HCL Inactive ZYPREXA 10 MG TABS Take one by mouth daily ZYPREXA 10 MG TABS 667702 OLANZAPINE Inactive TOPROL XL 100 MG [id number] 1 @ HS TOPROL XL 100 MG BV46S-IQA METOPROLOL SUCCINATE Inactive LEVEMIR 100 UNIT/ML SOLN 90 units SQ qHS LEVEMIR 100 UNIT/ML SOLN INSULIN DETEMIR Inactive PROMETHAZINE-CODEINE 6.25-10 MG/5ML SYRP 1 tsp po q 6 hours prn cough PROMETHAZINE-CODEINE 6.25-10 MG/5ML SYRP 575906 PROMETHAZINE- CODEINE Inactive GUAIFENESIN 600 MG CG91Y-RFL 1 tablet by mouth twice daily if needed for cough GUAIFENESIN 600 MG JW76N-CTB GUAIFENESIN Inactive ALBUTEROL SULFATE 0.083 % NEBU SOLN one vial per nebulizer TID and PRN cough/ soa ALBUTEROL SULFATE 0.083 % NEBU SOLN 781510 ALBUTEROL SULFATE Inactive ZYPREXA 5 MG TABS take one tablet by mouth every evening ZYPREXA 5 MG TABS 650031 OLANZAPINE Inactive HYDROCODONE-ACETAMINOPHEN 5-325 MG TABS take one tablet by mouth every four hours as needed for pain HYDROCODONE-ACETAMINOPHEN 5-325 MG TABS 473901 HYDROCODONE-ACETAMINOPHEN Inactive BACTROBAN 2 % CREAM apply to ear and nose twice daily BACTROBAN 2 % CREAM 869421 MUPIROCIN CALCIUM Inactive CYCLOBENZAPRINE HCL 10 MG TABS 1/2 tablet by mouth every 8 hours as needed for muscle spasms CYCLOBENZAPRINE HCL 10 MG TABS 348610 CYCLOBENZAPRINE HCL Inactive NAVANE 10 MG CAPS 1/2 tablet twice a day NAVANE 10 MG CAPS THIOTHIXENE Inactive DOXEPIN HCL 10 MG CAPS Take 1 tablet by mouth daily DOXEPIN HCL 10 MG CAPS 3298710 DOXEPIN HCL Inactive HYDROCODONE-ACETAMINOPHEN 7.5-325 MG TABS 1 four times a day as needed for pain HYDROCODONE-ACETAMINOPHEN 7.5-325 MG TABS 380113 HYDROCODONE-ACETAMINOPHEN Inactive NIACIN CR 500 MG CR-TABS 2 qHS NIACIN CR 500 MG CR- TABS NIACIN Inactive ORPHENADRINE CITRATE ER 100 MG [id number]-GVP 1 every 12 hr. as needed ORPHENADRINE CITRATE ER 100 MG [id number]-VFW ORPHENADRINE CITRATE Inactive ACETAMINOPHEN 500 MG TABS 2 Q 6 hr. PRN ACETAMINOPHEN 500 MG TABS 759233 ACETAMINOPHEN Inactive SAPHRIS 5 MG SUBL by mouth twice a day SAPHRIS 5 MG SUBL ASENAPINE MALEATE Inactive NIACIN ER 500 MG CR-TABS 4 qHS (for triglycerides) NIACIN ER 500 MG CR-TABS NIACIN Inactive IBUPROFEN 200 MG TABS 1 Q 6 hr. PRN IBUPROFEN 200 MG TABS 824682 IBUPROFEN Inactive FLUTICASONE PROPIONATE 50 MCG/ACT SUSP 2 sprays each nostril qDay x 30 days FLUTICASONE PROPIONATE 50 MCG/ACT SUSP 760048 FLUTICASONE PROPIONATE Inactive EQL TRUETEST TEST STRP Test blood sugar TID EQL TRUETEST TEST STRP GLUCOSE BLOOD Inactive TERESE CONTOUR TEST STRP monitor blood sugars 3x/day TERESE CONTOUR TEST STRP GLUCOSE BLOOD Inactive DETROL LA 4 MG [id number] Take 1 tablet by mouth daily DETROL LA 4 MG [id number]-MTM TOLTERODINE TARTRATE Inactive ZYPREXA 7.5 MG TABS 1 at HS ZYPREXA 7.5 MG TABS 213526 OLANZAPINE Inactive THIOTHIXENE 5 MG CAPS by mouth twice a day THIOTHIXENE 5 MG CAPS 914258 THIOTHIXENE Inactive UROXATRAL 10 MG [id number]-DZX Take 1 tablet by mouth daily UROXATRAL 10 MG IM45G-ERF ALFUZOSIN HCL Inactive ACYCLOVIR 400 MG ORAL TABS 1 pill three times daily x 5 days, for cold sore outbreak ACYCLOVIR 400 MG ORAL TABS 822555 ACYCLOVIR Inactive TRUETEST TEST STRP check sugars 4x/day TRUETEST TEST STRP GLUCOSE BLOOD Inactive HUMALOG 100 UNIT/ML SOLN Take 20 units with breakfast, 10u with lunch and suppetr. HUMALOG 100 UNIT/ML SOLN INSULIN LISPRO ( HUMAN) Inactive CYCLOBENZAPRINE HCL 10 MG TABS 1 tablet by mouth three times daily, scheduled CYCLOBENZAPRINE HCL 10 MG TABS 126460 CYCLOBENZAPRINE HCL Inactive ACCU-CHEK ROSA INVITR STRP use strips with device to check blood sugars 3 times daily ACCU-CHEK ROSA INVITR STRP GLUCOSE BLOOD Inactive ACCU-CHEK ROSA UZMA Use device to check blood sugars ACCU-CHEK ROSA UZMA BLOOD GLUCOSE MONITORING SUPPL Inactive CEFDINIR 300 MG CAPS by mouth twice a day CEFDINIR 300 MG CAPS 343846 CEFDINIR Inactive AZITHROMYCIN 500 MG SOLR 1 po q day AZITHROMYCIN 500 MG SOLR 656433 AZITHROMYCIN Inactive AMOXICILLIN 500 MG CAPS 2 po BID x 10 days AMOXICILLIN 500 MG CAPS 331793 AMOXICILLIN Inactive PENICILLIN V POTASSIUM 500 MG TABS 1 pill by mouth three times daily PENICILLIN V POTASSIUM 500 MG TABS 947647 PENICILLIN V POTASSIUM Inactive Immunizations Vaccine Administration [...] Fluvirin, Fluarix, Agriflu(>=18 yo)) Fluzone (>3 yrs.) [[id number]] Influenza, seasonal, injectable pneumococcal immunization administered Pneumovax [...] HGBA1C - Chemistry sodium, serum 130 mmol/L 555-741 3479/06/09 potassium, serum 4.0 mmol/L 3.5-5.2 chloride, serum 92 mmol/L 98-107 carbon dioxide, venous blood 22.1 mmol/L 21.0-32.0 blood glucose 60 mg/dL 65-110 calcium, serum 9.5 mg/dL 8.5-10.1 urea nitrogen, blood 14 mg/dL 7-18 creatinine, serum 1.30 mg/dL 0.60-1.30 hemoglobin A1C, blood, as % of total hemoglobin 6.0 % 4.3-6.0 sodium, serum 131 mmol/L 569-731 4227/12/30 potassium, serum 5.0 mmol/L 3.5-5.2 chloride, serum [...] 6.0 mg/dL 2.6-7.2 sodium, serum 130 mmol/L 713-090 9814/05/01 potassium, serum 5.2 mmol/L 3.5-5.2 chloride, serum [...] 0.40 mg/dL 0.00-1.00 cholesterol, serum 151 mg/dL 275-345 7327/05/01 triglyceride, serum, fasting 356 mg/dL 30-200 HDL [...] Panel - Chemistry sodium, serum 127 mmol/L 035-983 5369/10/27 potassium, serum 4.1 mmol/L 3.5-5.2 chloride, serum [...] mg/dL Encounters Code Encounter Date Provider Facility CPT-85359 Level 3 Est. Patient 11:51:18 DEHORNER Alina Castaneda MD PhD [facility] CPT-58481 Level 3 Est. Patient 10:09:22 DEHORNER Alina Castaneda MD PhD [facility]-13325 Level 3 Est. Patient 14:36:26 DEHORNER [facility] CPT-06615 Level 3 Est. Patient 13:34:47 DEHORNER Alina Castaneda MD PhD [facility]-54620 Level 3 Est. Patient 19:52:08 DEHORNER Alina Castaneda MD PhD [facility] CPT-49399 Level 3 Est. Patient 10:01:51 DEHORNER [facility] CPT-27384 Level 3 Est. Patient 21:54:06 CDT Vanessa Hickey MD [facility]-41270 Level 3 Est. Patient 08:54:46 CDT Alina Castaneda MD [facility]-43235 Level 3 Est. [facility] C[facility]-69834 Level 3 Est. Patient 12:02:49 CDT Alina Castaneda MD [facility]-03601 Level 3 Est. Patient 19:17:33 CDT Alina Castaneda MD [facility]-68581 Level 3 Est. Patient 13:19:10 CDT [place]-74651 Level 3 Est. Patient 08:20:05 CDT Alina Castaneda MD [facility]-51327 Level 3 Est. Patient 15:17:18 CDT Alina Castaneda MD [facility]75986 Level 3 Est. Patient 14:25:36 [place]HORNER [place] [facility]-84036 Level 3 Est. Patient 10:09:15 DEHORNER Marvel [facility]deepajayest[facility]-14828 Level 3 Est. Patient 21:28:43 CDT Alina Castaneda MD [facility]-70045 Level 3 Est. Patient 15:20:11 CDT Marvel [facility]-03118 Level 4 Est. Patient 19:08:12 CDT Alina Castaneda MD [facility]-45515 Level 3 Est. Patient 15:06:39 CDT [place] [facility]-34252 Level 4 Est. Patient 17:48:15 CDT Alina Castaneda MD [facility]-98387 Level 3 Est. Patient 14:53:49 CDT Alina Castaneda MD [facility]-94757 Level 3 Est. Patient 09:35:16 CDT Alina Castaneda MD [facility]-04054 Level 3 Est. Patient 12:23:22 CDT Alina Castaneda MD [facility]-76801 Level 3 Est. Patient 16:19:15 CDT Alina Castaneda MD [facility]-35949 Level 3 Est. Patient 21:39:56 DEHORNER Alina Castaneda MD [facility]-08131 Level 4 Est. Patient 14:12:56 DEHORNER Alina Castaneda MD [facility]84218 Level 2 Est. Patient 15:34:57 DEHORNER Alina Castaneda MD [facility]60101 Level 3 Est. Patient 12:17:04 DEHORNER Alina Castaneda MD [facility]54550 Level 3 Est. Patient 09:18:18 [facility]-64595 Level 2 Est. Patient 21:50:24 CDT Alina Castaneda MD [facility]-64327 Level 3 Est. Patient 09:17:28 CDT Marvel [facility]-45454 Level 4 Est. Patient 18:54:02 CDT Alina Castaneda MD [facility]-23152 Level 3 Est. Patient 10:47:10 CDT Alina Castaneda MD [facility]-54104 Level 3 Est. Patient 09:22:20 CDT Marvel [facility]-23082 Level 3 Est. Patient 16:39:43 CDT Marvel [facility]-91820 Level 3 Est. Patient 16:05:16 CDT Alina Castaneda MD [facility]40868 Level 3 Est. Patient 00:29:15 CDT Alina Castaneda MD PhD [facility] CPT-38648 Level 3 Est. Patient 10:49:22 DEHORNER [facility] CPT-45995 Level 3 Est. Patient 21:30:19 DEHORNER Alina Castaneda MD PhD [facility] CPT-42757 Level 4 Est. Patient 17:04:11 DEHORNER [place] [facility] CPT-13735 Level 3 Est. Patient 15:34:11 [facility] Level 2 Est. Patient 12:51:58 DEHORNER Alina Castaneda MD [facility] CPT-46606 Level 3 Est. Patient 13:20:01 DEHORNER Alina Castaneda MD [facility] CPT-41516 Level 3 Est. Patient 09:23:35 CDT Alina Castaneda MD PhD [facility] Procedures Code Procedure Name Date Entry Date Standard Description CPT-76264 Bladder Scan 21:54:06 CDT CPT-G0008 Administration of Influenza Virus Vaccine 13:05:26 CDT CPT-76693 Fluzone Quadrivalent Intramuscular Suspension 0.5 ML 13: 05:26 CDT CPT-16040 Administration single or combination vaccine inc oral 11 :49:51 CDT CPT-54863 Pneumovax 11:49:51 CDT CPT-02449 Ribs unilateral 2V 12:37:22 DEHORNER CPT-86885 Chest 2V Frontal and Lat 17:15:26 CDT CPT-22783 Abx/Therapy Injection 18:54:02 CDT CPT-J0696 Rocephin 1000 mg (Ceftriaxone) 16:00:32 CDT CPT-39283 Chest 2V Frontal and Lat 15:26:45 CDT CPT-37930 Chest 2V Frontal and Lat 10:23:27 CDT CPT-08537 Venipuncture Draw Fee 10:11:00 CDT CPT-40944 Administration single or combination vaccine inc oral 11 :56:38 CDT CPT-21381 Influenza split virus > age 3 11:56:38 CDT CPT-53803 Venipuncture Draw Fee 08:49:54 DEHORNER CPT-19185 EKG Trac and Interp 17:54:19 DEHORNER
--- OUTSIDE RECORDS SUMMARY | 2018-07-02 20:15 | XMS REPORT | Clinical Summary ---
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 Active Alina Castaneda MD PhD Recurrent isolated sleep paralysis SPECIAL SCREENING FOR MALIGNANT NEOPLASM OF PROSTATE V76.44 Resolved Alina Castaneda MD PhD Screening for malignant neoplasms of prostate Hypoglycemia 251.2 Resolved Alina Castaneda MD PhD Hypoglycemia, unspecified Diabetes mellitus, type II 250.00 Active Mallashondaeh Bertrandari EXECUTIVE ADVISOR Diabetes mellitus without mention of complication, type [...] STRP check blood sugars 3x/day GLUCOSE BLOOD 25953796891 Active Malihnivia Ziglari EXECUTIVE ADVISOR Active ACCU-CHEK ROSA UZMA Use device to check blood sugars BLOOD GLUCOSE MONITORING SUPPL 31086076932 No Longer Active Mallashondaeh Ziglari EXECUTIVE ADVISOR Active ACCU-CHEK ROSA INVITR STRP use strips with device to check blood sugars 3 times daily GLUCOSE BLOOD 68323633996 No Longer Active Mallashondaeh 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 EXECUTIVE ADVISOR Active VERAPAMIL HCL ER 180 MG ORAL CR-TABS 1 pill by mouth twice daily, for migraine prevention VERAPAMIL HCL 47230265481 Active Alina Castaneda MD PhD Active CYCLOBENZAPRINE HCL 10 MG TABS 1 tablet by mouth three times daily, scheduled CYCLOBENZAPRINE HCL 31403830291 No Longer Active Alina Castaneda MD PhD Active HUMALOG 100 UNIT/ML SOLN Take 20 units with breakfast, 10u with lunch and suppetr. INSULIN LISPRO (HUMAN) 02155372328 No Longer Active Alina Castaneda MD PhD Active TRUETEST TEST STRP check sugars 4x/day GLUCOSE BLOOD 35657716105 No Longer Active Alina Castaneda MD PhD Active MORPHINE SULFATE 30 MG TABS 1 pill by mouth twice daily, for pain MORPHINE SULFATE 86426056723 Active Alina Castaneda MD PhD Active ACYCLOVIR 400 MG ORAL TABS 1 pill three times daily x 5 days, for cold sore outbreak ACYCLOVIR 76641828375 No Longer Active Alina Castaneda MD PhD Active PENICILLIN V POTASSIUM 500 MG TABS 1 pill by mouth three times daily PENICILLIN V POTASSIUM 21843598782 No Longer Active Alina Castaneda MD PhD Active LATUDA 80 MG TABS 1 tab by mouth every evening LURASIDONE HCL 20989090163 Active Alina Castaneda MD PhD Active UROXATRAL 10 MG [id number] Take 1 tablet by mouth daily ALFUZOSIN HCL 00443939784 No Longer Active Alina Castaneda MD PhD Active THIOTHIXENE 5 MG CAPS by mouth twice a day THIOTHIXENE 95807612977 No Longer Active Alina Castaneda MD PhD Active ZYPREXA 7.5 MG TABS 1 at HS OLANZAPINE 78428179916 No Longer Active Alina Castaneda MD PhD Active LEVEMIR 100 UNIT/ML SOLN Take 70 u at 7-8pm INSULIN DETEMIR 24790884853 Active Maliheh Ziglari EXECUTIVE ADVISOR Active BD INSULIN SYRINGE 28G X 1/2" 1 ML MISC 1 four times per day INSULIN SYRINGE-NEEDLE U-100 53735536195 Active Mallashondaeh Ziglari EXECUTIVE ADVISOR Active TOLTERODINE TARTRATE 2 MG TABS 1 pill twice daily, for bladder TOLTERODINE TARTRATE 47084668698 Active Alina Castaneda MD PhD Active DETROL LA 4 MG [id number] Take 1 tablet by mouth daily TOLTERODINE TARTRATE 97668124602 No Longer Active Alina Castaneda MD PhD Active HYDROCODONE-ACETAMINOPHEN 5-325 MG TABS 2 tabs by mouth three times daily as needed for pain HYDROCODONE-ACETAMINOPHEN 98861461670 Active Alina Castaneda MD PhD Active TERESE CONTOUR TEST STRP monitor blood sugars 3x/day GLUCOSE BLOOD 21850501332 No Longer Active Alina Castaneda MD PhD Active EQL TRUETEST TEST STRP Test blood sugar TID GLUCOSE BLOOD 81772842165 No Longer Active Alina Castaneda MD PhD Active FLUTICASONE PROPIONATE 50 MCG/ACT SUSP 2 sprays each nostril qDay x 30 days FLUTICASONE PROPIONATE 64630643580 No Longer Active Alina Castaneda MD PhD Active IBUPROFEN 200 MG TABS 1 Q 6 hr. PRN IBUPROFEN 79757611827 No Longer Active Alina Castaneda MD PhD Active NIACIN ER 500 MG CR-TABS 4 qHS (for triglycerides) NIACIN 82812660729 No Longer Active Alina Castaneda MD PhD Active ALFUZOSIN HCL ER 10 MG [id number] 1 tablet daily ALFUZOSIN HCL 35635761167 Active Vanessa Hickey MD Active CLONAZEPAM 1 MG TABS 1 pill by mouth three times daily CLONAZEPAM 87155873890 Active Alina Castaneda MD PhD Active LOVAZA 1 GM CAPS 4 daily (for triglycerides) WSKTA-9-EVRY ETHYL ESTERS 19040561037 Active Alina Castaneda MD PhD Active SAPHRIS 5 MG SUBL by mouth twice a day ASENAPINE MALEATE 49113909849 No Longer Active Maliheh Ziglari EXECUTIVE ADVISOR Active ACETAMINOPHEN 500 MG TABS 2 Q 6 hr. PRN ACETAMINOPHEN 22203065095 No Longer Active Maliheh Ziglari EXECUTIVE ADVISOR Active ORPHENADRINE CITRATE ER 100 MG [id number]-UTQ 1 every 12 hr. as needed ORPHENADRINE CITRATE 53902897714 No Longer Active Alina Castaneda MD PhD Active NIACIN CR 500 MG CR-TABS 2 qHS NIACIN 69797125833 No Longer Active Alina Castaneda MD PhD Active AMOXICILLIN 500 MG CAPS 2 po BID x 10 days AMOXICILLIN 48580415188 No Longer Active Alina Castaneda MD PhD Active HYDROCODONE-ACETAMINOPHEN 7.5-325 MG TABS 1 four times a day as needed for pain HYDROCODONE-ACETAMINOPHEN 33877839861 No Longer Active Alina Castaneda MD PhD Active METFORMIN HCL ER 500 MG [id number]-LTX Take three tablets by mouth everyday METFORMIN HCL 42210637694 Active Marvel MARROQUIN Active DOXEPIN HCL 10 MG CAPS Take 1 tablet by mouth daily DOXEPIN HCL 14130287069 No Longer Active Salina Han A Active NAVANE 10 MG CAPS 1/2 tablet twice a day THIOTHIXENE No Longer Active Salina Han A Active CYCLOBENZAPRINE HCL 10 MG TABS 1/2 tablet by mouth every 8 hours as needed for muscle spasms CYCLOBENZAPRINE HCL 87708020678 No Longer Active Alina Castaneda MD PhD Active BACTROBAN 2 % CREAM apply to ear and nose twice daily MUPIROCIN CALCIUM 53364390164 No Longer Active Alina Castaneda MD PhD Active HYDROCODONE-ACETAMINOPHEN 5-325 MG TABS take one tablet by mouth every four hours as needed for pain HYDROCODONE-ACETAMINOPHEN 58238514903 No Longer Active Alian Castaneda MD PhD Active ZOLPIDEM TARTRATE 10 MG TABS take at bedtime ZOLPIDEM TARTRATE 78810242783 Active Alina Castaneda MD PhD Active ZYPREXA 5 MG TABS take one tablet by mouth every evening OLANZAPINE 98606625220 No Longer Active Alina Castaneda MD PhD Active ALBUTEROL SULFATE 0.083 % NEBU SOLN one vial per nebulizer TID and PRN cough/ soa ALBUTEROL SULFATE 19546722230 No Longer Active Alina Castaneda MD PhD Active GUAIFENESIN 600 MG CL84C-NTX 1 tablet by mouth twice daily if needed for cough GUAIFENESIN 41975479497 No Longer Active Marvel MARROQUIN Active AZITHROMYCIN 500 MG SOLR 1 po q day AZITHROMYCIN 57545240378 No Longer Active Alina Castaneda MD PhD Active METOPROLOL SUCCINATE 100 MG UV64I-IFW 1 by mouth daily for blood pressure METOPROLOL SUCCINATE 34647937548 Active Alina Castaneda MD PhD Active PROMETHAZINE-CODEINE 6.25-10 MG/5ML SYRP 1 tsp po q 6 hours prn cough PROMETHAZINE-CODEINE 26754997918 No Longer Active Alina Castaneda MD PhD Active CEFDINIR 300 MG CAPS by mouth twice a day CEFDINIR 05449530759 No Longer Active Alina Castaneda MD PhD Active METFORMIN HCL 500 MG [id number]-GZI Take 3 tablets by mouth everyday METFORMIN HCL 17510624952 No Longer Active Alina Castaneda MD PhD Active LEVEMIR 100 UNIT/ML SOLN 90 units SQ qHS INSULIN DETEMIR 91470750144 No Longer Active Marvel MARROQUIN Active TOPROL XL 100 MG [id number]-JRJ 1 @ HS METOPROLOL SUCCINATE 50513563223 No Longer Active Marvel MARROQUIN Active ALLOPURINOL 300 MG TABS Take one by mouth daily ALLOPURINOL 07427769144 Active Alina Castaneda MD PhD Active ZYPREXA 10 MG TABS Take one by mouth daily OLANZAPINE 55421673928 No Longer Active Alina Castaneda MD PhD Active NOVOLOG 100 UNIT/ML SOLN 40 units with every meal INSULIN ASPART 51669571405 No Longer Active Alina Castaneda MD PhD Active VERAPAMIL HCL CR 120 MG TAB CR 1 qPM VERAPAMIL HCL 77446415333 No Longer Active Salina Han [facility] Active ZYPREXA 15 MG TABS Take 1 tablet by mouth daily OLANZAPINE 43516000980 No Longer Active Marvel MARROQUIN Active LISINOPRIL 20 MG TABS 1 BID LISINOPRIL 79370620576 Active Alina Castaneda MD PhD Active ALBUTEROL SULFATE (2.5 MG/3ML) 0.083% NEBU 1 neb tid and prn cough ALBUTEROL SULFATE 47632017836 No Longer Active Alina Castaneda MD PhD Active FLUVOXAMINE MALEATE 100 MG TABS Take one (1) tablet by mouth am, 1/2 at noon, 1 pm FLUVOXAMINE MALEATE 39153054968 Active Alina Castaneda MD PhD Active TRAVATAN Z 0.004 % SOLN 1 gtt each eye daily TRAVOPROST 76506342066 Active CRYSTAL Suarez Active LANTUS 100 UNIT/ML SOLN 60 units sq q hs INSULIN GLARGINE 48536967025 No Longer Active CRYSTAL Suarez Active ALBUTEROL SULFATE (2.5 MG/3ML) 0.083% NEBU 1 neb tid and prn cough ALBUTEROL SULFATE (2.5 MG/3ML) 0.083% NEBU 890054 ALBUTEROL SULFATE Inactive ZYPREXA 15 MG TABS Take 1 tablet by mouth daily ZYPREXA 15 MG TABS 888880 OLANZAPINE Inactive VERAPAMIL HCL CR 120 MG TAB CR 1 qPM VERAPAMIL HCL CR 120 MG TAB CR VERAPAMIL HCL Inactive ZYPREXA 10 MG TABS Take one by mouth daily ZYPREXA 10 MG TABS 121845 OLANZAPINE Inactive TOPROL XL 100 MG [id number]-NPY 1 @ HS TOPROL XL 100 MG EL16Y-SAY METOPROLOL SUCCINATE Inactive LEVEMIR 100 UNIT/ML SOLN 90 units SQ qHS LEVEMIR 100 UNIT/ML SOLN INSULIN DETEMIR Inactive PROMETHAZINE-CODEINE 6.25-10 MG/5ML SYRP 1 tsp po q 6 hours prn cough PROMETHAZINE-CODEINE 6.25-10 MG/5ML SYRP 827145 PROMETHAZINE- CODEINE Inactive GUAIFENESIN 600 MG OF37I-SLD 1 tablet by mouth twice daily if needed for cough GUAIFENESIN 600 MG AL50N-ZTS GUAIFENESIN Inactive ALBUTEROL SULFATE 0.083 % NEBU SOLN one vial per nebulizer TID and PRN cough/ soa ALBUTEROL SULFATE 0.083 % NEBU SOLN 814399 ALBUTEROL SULFATE Inactive ZYPREXA 5 MG TABS take one tablet by mouth every evening ZYPREXA 5 MG TABS 718913 OLANZAPINE Inactive HYDROCODONE-ACETAMINOPHEN 5-325 MG TABS take one tablet by mouth every four hours as needed for pain HYDROCODONE-ACETAMINOPHEN 5-325 MG TABS 403168 HYDROCODONE-ACETAMINOPHEN Inactive BACTROBAN 2 % CREAM apply to ear and nose twice daily BACTROBAN 2 % CREAM 114118 MUPIROCIN CALCIUM Inactive CYCLOBENZAPRINE HCL 10 MG TABS 1/2 tablet by mouth every 8 hours as needed for muscle spasms CYCLOBENZAPRINE HCL 10 MG TABS 184964 CYCLOBENZAPRINE HCL Inactive NAVANE 10 MG CAPS 1/2 tablet twice a day NAVANE 10 MG CAPS THIOTHIXENE Inactive DOXEPIN HCL 10 MG CAPS Take 1 tablet by mouth daily DOXEPIN HCL 10 MG CAPS 9885044 DOXEPIN HCL Inactive HYDROCODONE-ACETAMINOPHEN 7.5-325 MG TABS 1 four times a day as needed for pain HYDROCODONE-ACETAMINOPHEN 7.5-325 MG TABS 204763 HYDROCODONE-ACETAMINOPHEN Inactive NIACIN CR 500 MG CR-TABS 2 qHS NIACIN CR 500 MG CR- TABS NIACIN Inactive ORPHENADRINE CITRATE ER 100 MG [id number] 1 every 12 hr. as needed ORPHENADRINE CITRATE ER 100 MG [id number]-ZSN ORPHENADRINE CITRATE Inactive ACETAMINOPHEN 500 MG TABS 2 Q 6 hr. PRN ACETAMINOPHEN 500 MG TABS 717363 ACETAMINOPHEN Inactive SAPHRIS 5 MG SUBL by mouth twice a day SAPHRIS 5 MG SUBL ASENAPINE MALEATE Inactive NIACIN ER 500 MG CR-TABS 4 qHS (for triglycerides) NIACIN ER 500 MG CR-TABS NIACIN Inactive IBUPROFEN 200 MG TABS 1 Q 6 hr. PRN IBUPROFEN 200 MG TABS 197250 IBUPROFEN Inactive FLUTICASONE PROPIONATE 50 MCG/ACT SUSP 2 sprays each nostril qDay x 30 days FLUTICASONE PROPIONATE 50 MCG/ACT SUSP 785857 FLUTICASONE PROPIONATE Inactive EQL TRUETEST TEST STRP Test blood sugar TID EQL TRUETEST TEST STRP GLUCOSE BLOOD Inactive TERESE CONTOUR TEST STRP monitor blood sugars 3x/day TERESE CONTOUR TEST STRP GLUCOSE BLOOD Inactive DETROL LA 4 MG [id number]-SLY Take 1 tablet by mouth daily DETROL LA 4 MG [id number] TOLTERODINE TARTRATE Inactive ZYPREXA 7.5 MG TABS 1 at HS ZYPREXA 7.5 MG TABS 935260 OLANZAPINE Inactive THIOTHIXENE 5 MG CAPS by mouth twice a day THIOTHIXENE 5 MG CAPS 780437 THIOTHIXENE Inactive UROXATRAL 10 MG CY36Y-ERY Take 1 tablet by mouth daily UROXATRAL 10 MG [id number]-RKZ ALFUZOSIN HCL Inactive ACYCLOVIR 400 MG ORAL TABS 1 pill three times daily x 5 days, for cold sore outbreak ACYCLOVIR 400 MG ORAL TABS 209466 ACYCLOVIR Inactive TRUETEST TEST STRP check sugars 4x/day TRUETEST TEST STRP GLUCOSE BLOOD Inactive HUMALOG 100 UNIT/ML SOLN Take 20 units with breakfast, 10u with lunch and suppetr. HUMALOG 100 UNIT/ML SOLN INSULIN LISPRO ( HUMAN) Inactive CYCLOBENZAPRINE HCL 10 MG TABS 1 tablet by mouth three times daily, scheduled CYCLOBENZAPRINE HCL 10 MG TABS 914382 CYCLOBENZAPRINE HCL Inactive ACCU-CHEK ROSA INVITR STRP use strips with device to check blood sugars 3 times daily ACCU-CHEK ROSA INVITR STRP GLUCOSE BLOOD Inactive ACCU-CHEK ROSA UZMA Use device to check blood sugars ACCU-CHEK ROSA UZMA BLOOD GLUCOSE MONITORING SUPPL Inactive CEFDINIR 300 MG CAPS by mouth twice a day CEFDINIR 300 MG CAPS 534298 CEFDINIR Inactive AZITHROMYCIN 500 MG SOLR 1 po q day AZITHROMYCIN 500 MG SOLR 867755 AZITHROMYCIN Inactive AMOXICILLIN 500 MG CAPS 2 po BID x 10 days AMOXICILLIN 500 MG CAPS 934467 AMOXICILLIN Inactive PENICILLIN V POTASSIUM 500 MG TABS 1 pill by mouth three times daily PENICILLIN V POTASSIUM 500 MG TABS 455869 PENICILLIN V POTASSIUM Inactive Immunizations Vaccine Administration [...] Fluvirin, Fluarix, Agriflu(>=18 yo)) Fluzone (>3 yrs.) [[id number]] Influenza, seasonal, injectable pneumococcal immunization administered Pneumovax [...] pressure, diastolic - 8462-4 71 mm[Hg] BP garica blood pressure, systolic - 8480-6 124 mm[Hg] [...] HGBA1C - Chemistry sodium, serum 130 mmol/L 608-208 7119/06/09 potassium, serum 4.0 mmol/L 3.5-5.2 chloride, serum 92 mmol/L 98-107 carbon dioxide, venous blood 22.1 mmol/L 21.0-32.0 blood glucose 60 mg/dL 65-110 calcium, serum 9.5 mg/dL 8.5-10.1 urea nitrogen, blood 14 mg/dL 7-18 creatinine, serum 1.30 mg/dL 0.60-1.30 hemoglobin A1C, blood, as % of total hemoglobin 6.0 % 4.3-6.0 sodium, serum 131 mmol/L 539-722 5125/12/30 potassium, serum 5.0 mmol/L 3.5-5.2 chloride, serum [...] 6.0 mg/dL 2.6-7.2 sodium, serum 130 mmol/L 850-095 2384/05/01 potassium, serum 5.2 mmol/L 3.5-5.2 chloride, serum [...] 0.40 mg/dL 0.00-1.00 cholesterol, serum 151 mg/dL 452-571 7846/05/01 triglyceride, serum, fasting 356 mg/dL 30-200 HDL [...] Panel - Chemistry sodium, serum 127 mmol/L 979-390 3931/10/27 potassium, serum 4.1 mmol/L 3.5-5.2 chloride, serum [...] mg/dL Encounters Code Encounter Date Provider Facility CPT-94767 Level 2 Est. Patient 12:52:14 CDT Alina Castaneda MD PhD [facility] CPT-86268 Level 3 Est. Patient 11:51:18 [employer] Alina Castaneda MD PhD [facility] CPT-81430 Level 3 Est. Patient 10:09:22 [employer] Alina Castaneda MD PhD [facility] CPT-85865 Level 3 Est. Patient 14:36:26 [employer] [facility] Level 3 Est. Patient 13:34:47 KHALIF Castaneda MD PhD [facility] CPT-16418 Level 3 Est. Patient 19:52:08 [employer] Alina Castaneda MD PhD [facility] CPT-27318 Level 3 Est. Patient 10:01:51 [employer] Maliheh Ziglari [facility][note 3]-07703 Level 3 Est. Patient 21:54:06 CDT Vanessa Hickey MD [facility]-90061 Level 3 Est. Patient 08:54:46 CDT Alina Castaneda MD [facility]83951 Level 3 Est. Patient 09:32:11 CDT Brookslashondanivia Araceli [facility][note 3]-97711 Level 3 Est. Patient 12:02:49 CDT Alina Castaneda MD PhD [facility]68490 Level 3 Est. Patient 19:17:33 CDT Alina Castaneda MD [facility] [place]47809 Level 3 Est. Patient 13:19:10 [facility]T [facility][note 3]-58195 Level 3 Est. Patient 08:20:05 CDT Alina Castaneda MD [facility]-58852 Level 3 Est. Patient 15:17:18 CDT Alina Castaneda MD [facility]32155 Level 3 Est. Patient 14:25:36 [employer] Marvel Araceli [facility][note 3]-52422 Level 3 Est. Patient 10:09:15 [employer] Marvel Araceli [facility][note 3]-04283 Level 3 Est. Patient 21:28:43 CDT Alina Castaneda MD PhD [facility]-90963 Level 3 Est. Patient 15:20:11 CDT Marvel Charles [facility][note 3]-93905 Level 4 Est. Patient 19:08:12 CDT Alina Castaneda MD [facility]88236 Level 3 Est. Patient 15:06:39 CDT [facility][note 3]-22040 Level 4 Est. Patient 17:48:15 CDT Alina Castaneda MD [facility]-17993 Level 3 Est. Patient 14:53:49 CDT Alina Castaneda MD [facility]-87844 Level 3 Est. Patient 09:35:16 CDT Alina Castaneda MD [facility]-26452 Level 3 Est. Patient 12:23:22 CDT Alina Castaneda MD [facility]-68545 Level 3 Est. Patient 16:19:15 CDT Alina Castaneda MD [facility]-08243 Level 3 Est. Patient 21:39:56 [employer] Alina Castaneda MD [facility]-06381 Level 4 Est. Patient 14:12:56 [employer] Alina Castaneda MD [facility]-22015 Level 2 Est. Patient 15:34:57 [employer] Alina Castaneda MD [facility]-90854 Level 3 Est. Patient 12:17:04 [employer] Alina Castaneda MD [facility]-90298 Level 3 Est. Patient 09:18:18 [employer] Marvel Charles [facility][note 3]-96636 Level 2 Est. Patient 21:50:24 CDT Alina Castaneda MD [facility]-91401 Level 3 Est. Patient 09:17:28 CDT Marvel Charles [facility][note 3]-71787 Level 4 Est. Patient 18:54:02 CDT Alina Castaneda MD [facility]-77616 Level 3 Est. Patient 10:47:10 CDT Alina Castaneda MD [facility] CPT-60359 Level 3 Est. Patient 09:22:20 CDT Marvel Charles [facility] CPT-53930 Level 3 Est. Patient 16:39:43 CDT Marvel [facility] CPT-65730 Level 3 Est. Patient 16:05:16 CDT Alina Castaneda MD [facility] CPT-65281 Level 3 Est. Patient 00:29:15 CDT Alina Castaneda MD [facility]-15501 Level 3 Est. Patient 10:49:22 [employer] Marvel [facility] CPT-37974 Level 3 Est. Patient 21:30:19 [employer] Alina Castaneda MD [facility] CPT-71923 Level 4 Est. Patient 17:04:11 [employer] Marvel [facility] CPT-44630 Level 3 Est. Patient 15:34:11 [employer] [facility] Level 2 Est. Patient 12:51:58 [employer] Alina Castaneda MD [facility] CPT-75560 Level 3 Est. Patient 13:20:01 [employer] Alina Castaneda MD [facility] CPT-39443 Level 3 Est. Patient 09:23:35 CDT Alina Castaneda MD [facility] Procedures Code Procedure Name Date Entry Date Standard Description CPT-77961 Bladder Scan 21:54:06 CDT CPT-G0008 Administration of Influenza Virus Vaccine 13:05:26 CDT CPT-83040 Fluzone Quadrivalent Intramuscular Suspension 0.5 ML 13: 05:26 CDT CPT-16952 Administration single or combination vaccine inc oral 11 :49:51 CDT CPT-52080 Pneumovax 11:49:51 CDT CPT-98894 Ribs unilateral 2V 12:37:22 [employer] CPT-47106 Chest 2V Frontal and Lat 17:15:26 CDT CPT-57242 Abx/Therapy Injection 18:54:02 CDT CPT-J0696 Rocephin 1000 mg (Ceftriaxone) 16:00:32 CDT CPT-02449 Chest 2V Frontal and Lat 15:26:45 CDT CPT-63536 Chest 2V Frontal and Lat 10:23:27 CDT CPT-53042 Venipuncture Draw Fee 10:11:00 CDT CPT-13881 Administration single or combination vaccine inc oral 11 :56:38 CDT CPT-04263 Influenza split virus > age 3 11:56:38 CDT CPT-77531 Venipuncture Draw Fee 08:49:54 [employer] CPT-67660 EKG Trac and Interp 17:54:19 [employer]
--- OUTSIDE RECORDS SUMMARY | 2018-07-02 20:17 | XMS REPORT | Clinical Summary ---
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 Active Alina Castaneda MD PhD Recurrent isolated sleep paralysis SPECIAL SCREENING FOR MALIGNANT NEOPLASM OF PROSTATE V76.44 Resolved Alina Castaneda MD PhD Screening for malignant neoplasms of prostate Hypoglycemia 251.2 Resolved Alina Castaneda MD PhD Hypoglycemia, unspecified Diabetes mellitus, type II 250.00 Active Mallashondaeh Bertrandari HYPERTRICHOLOGIST Diabetes mellitus without mention of complication, type [...] ICD-V17.1 Inactive Marvel MARROQUIN FATIGUE ICD-780.79 Inactive lAina Castaneda MD PhD DIABETES MELLITUS, TYPE II, [...] mouth twice daily, for pain MORPHINE SULFATE 35055621752 Active Alina Castaneda MD PhD Active ACYCLOVIR 400 MG ORAL TABS 1 pill three times daily x 5 days, for cold sore outbreak ACYCLOVIR 87022641203 No Longer Active Alina Castaneda MD PhD Active PENICILLIN V POTASSIUM 500 MG TABS 1 pill by mouth three times daily PENICILLIN V POTASSIUM 93595159732 No Longer Active Alina Castaneda MD PhD Active LATUDA 80 MG TABS 1 tab by mouth every evening LURASIDONE HCL 88971718696 Active Alina Castaneda MD PhD Active UROXATRAL 10 MG [id number] Take 1 tablet by mouth daily ALFUZOSIN HCL 03381212011 No Longer Active Alina Castaneda MD PhD Active THIOTHIXENE 5 MG CAPS by mouth twice a day THIOTHIXENE 51881309323 No Longer Active Alina Castaneda MD PhD Active ZYPREXA 7.5 MG TABS 1 at HS OLANZAPINE 59807769796 No Longer Active Alina Castaneda MD PhD Active HUMALOG 100 UNIT/ML SOLN Take 20 units with breakfast, 10u with lunch and suppetr. INSULIN LISPRO (HUMAN) 31802456577 Active Marvel MARROQUIN Active LEVEMIR 100 UNIT/ML SOLN Take 70 u at 7-8pm INSULIN DETEMIR 69314705564 Active Marvel Mackenzieglari HYPERTRICHOLOGIST Active BD INSULIN SYRINGE 28G X 1/2" 1 ML MISC 1 four times per day INSULIN SYRINGE-NEEDLE U-100 40232856187 Active Marvel Mackenzieglari HYPERTRICHOLOGIST Active CYCLOBENZAPRINE HCL 10 MG TABS 1 tablet by mouth three times daily, scheduled CYCLOBENZAPRINE HCL 01910325883 Active Alina Castaneda MD PhD Active TOLTERODINE TARTRATE 2 MG TABS 1 pill twice daily, for bladder TOLTERODINE TARTRATE 03045788554 Active Alina Castaneda MD PhD Active DETROL LA 4 MG [id number] Take 1 tablet by mouth daily TOLTERODINE TARTRATE 27305725327 No Longer Active Alina Castaneda MD PhD Active HYDROCODONE-ACETAMINOPHEN 5-325 MG TABS 2 tabs by mouth three times daily as needed for pain HYDROCODONE-ACETAMINOPHEN 64391293423 Active Rhett Luther DO Active TERESE CONTOUR TEST STRP monitor blood sugars 3x/day GLUCOSE BLOOD 78474079720 No Longer Active Alina Castaneda MD PhD Active EQL TRUETEST TEST STRP Test blood sugar TID GLUCOSE BLOOD 42012660716 No Longer Active Alina Castaneda MD PhD Active FLUTICASONE PROPIONATE 50 MCG/ACT SUSP 2 sprays each nostril qDay x 30 days FLUTICASONE PROPIONATE 29351525338 No Longer Active Alina Castaneda MD PhD Active IBUPROFEN 200 MG TABS 1 Q 6 hr. PRN IBUPROFEN 73907837167 No Longer Active Alina Castaneda MD PhD Active NIACIN ER 500 MG CR-TABS 4 qHS (for triglycerides) NIACIN 20076771186 No Longer Active Alina Castaneda MD PhD Active TRUETEST TEST STRP check sugars 4x/day GLUCOSE BLOOD 01922142746 Active Marvel MENDOZAP Active ALFUZOSIN HCL ER 10 MG [id number] 1 tablet daily ALFUZOSIN HCL 30651832969 Active Vanessa Hickey MD Active CLONAZEPAM 1 MG TABS 1 pill by mouth three times daily CLONAZEPAM 65315981818 Active Alina Castaneda MD PhD Active LOVAZA 1 GM CAPS 4 daily (for triglycerides) KXMDG-3-XOCH ETHYL ESTERS 11444214721 Active Alina Castaneda MD PhD Active SAPHRIS 5 MG SUBL by mouth twice a day ASENAPINE MALEATE 14930571576 No Longer Active Marvel MARROQUIN Active ACETAMINOPHEN 500 MG TABS 2 Q 6 hr. PRN ACETAMINOPHEN 07610739049 No Longer Active Marvel MARROQUIN Active VERAPAMIL HCL ER 120 MG [id number] 1 pill by mouth twice a day, for headache prevention/control VERAPAMIL HCL 07898501315 Active Alina Castaneda MD PhD Active ORPHENADRINE CITRATE ER 100 MG [id number] 1 every 12 hr. as needed ORPHENADRINE CITRATE 70317943541 No Longer Active Alina Castaneda MD PhD Active NIACIN CR 500 MG CR-TABS 2 qHS NIACIN 01354191534 No Longer Active Alina Castaneda MD PhD Active AMOXICILLIN 500 MG CAPS 2 po BID x 10 days AMOXICILLIN 67502942603 No Longer Active Alina Castaneda MD PhD Active HYDROCODONE-ACETAMINOPHEN 7.5-325 MG TABS 1 four times a day as needed for pain HYDROCODONE-ACETAMINOPHEN 63500750749 No Longer Active Alina Castaneda MD PhD Active METFORMIN HCL ER 500 MG [id number] Take three tablets by mouth everyday METFORMIN HCL 16644590447 Active Marvel MARROQUIN Active DOXEPIN HCL 10 MG CAPS Take 1 tablet by mouth daily DOXEPIN HCL 64494365312 No Longer Active Salina ROJAS Active NAVANE 10 MG CAPS 1/2 tablet twice a day THIOTHIXENE No Longer Active Salina ROJAS Active CYCLOBENZAPRINE HCL 10 MG TABS 1/2 tablet by mouth every 8 hours as needed for muscle spasms CYCLOBENZAPRINE HCL 57285801662 No Longer Active Alina Castaneda MD PhD Active BACTROBAN 2 % CREAM apply to ear and nose twice daily MUPIROCIN CALCIUM 05471444643 No Longer Active Alina Castaneda MD PhD Active HYDROCODONE-ACETAMINOPHEN 5-325 MG TABS take one tablet by mouth every four hours as needed for pain HYDROCODONE-ACETAMINOPHEN 90071318046 No Longer Active Alina Castaneda MD PhD Active ZOLPIDEM TARTRATE 10 MG TABS take at bedtime ZOLPIDEM TARTRATE 98534315518 Active Alina Castaneda MD PhD Active ZYPREXA 5 MG TABS take one tablet by mouth every evening OLANZAPINE 07469754042 No Longer Active Alina Castaneda MD PhD Active ALBUTEROL SULFATE 0.083 % NEBU SOLN one vial per nebulizer TID and PRN cough/ soa ALBUTEROL SULFATE 48256955199 No Longer Active Alina Castaneda MD PhD Active GUAIFENESIN 600 MG NP35Z-EWV 1 tablet by mouth twice daily if needed for cough GUAIFENESIN 23820162952 No Longer Active Marvel MENDOZAP Active AZITHROMYCIN 500 MG SOLR 1 po q day AZITHROMYCIN 64404509339 No Longer Active Alina Castaneda MD PhD Active METOPROLOL SUCCINATE 100 MG [id number] 1 by mouth daily for blood pressure METOPROLOL SUCCINATE 28071177734 Active Alina Castaneda MD PhD Active PROMETHAZINE-CODEINE 6.25-10 MG/5ML SYRP 1 tsp po q 6 hours prn cough PROMETHAZINE-CODEINE 60410104094 No Longer Active Alina Castaneda MD PhD Active CEFDINIR 300 MG CAPS by mouth twice a day CEFDINIR 54320013805 No Longer Active Alina Castaneda MD PhD Active METFORMIN HCL 500 MG [id number]-JPG Take 3 tablets by mouth everyday METFORMIN HCL 95009598926 No Longer Active Alina Castaneda MD PhD Active LEVEMIR 100 UNIT/ML SOLN 90 units SQ qHS INSULIN DETEMIR 64786888772 No Longer Active Marvel MARROQUIN Active TOPROL XL 100 MG [id number]-FRX 1 @ HS METOPROLOL SUCCINATE 14843757644 No Longer Active Marvel MARROQUIN Active ALLOPURINOL 300 MG TABS Take one by mouth daily ALLOPURINOL 06660307754 Active Alina Castaneda MD PhD Active ZYPREXA 10 MG TABS Take one by mouth daily OLANZAPINE 07631452956 No Longer Active Alina Castaneda MD PhD Active NOVOLOG 100 UNIT/ML SOLN 40 units with every meal INSULIN ASPART 08753725609 No Longer Active Alina Castaneda MD PhD Active VERAPAMIL HCL CR 120 MG TAB CR 1 qPM VERAPAMIL HCL 49397302656 No Longer Active Salina ROJAS Active ZYPREXA 15 MG TABS Take 1 tablet by mouth daily OLANZAPINE 43035605209 No Longer Active Marvel MARROQUIN Active LISINOPRIL 20 MG TABS 1 BID LISINOPRIL 92148327756 Active Alina Castaneda MD PhD Active ALBUTEROL SULFATE (2.5 MG/3ML) 0.083% NEBU 1 neb tid and prn cough ALBUTEROL SULFATE 38221336537 No Longer Active Alina Castaneda MD PhD Active FLUVOXAMINE MALEATE 100 MG TABS Take one (1) tablet by mouth am, 1/2 at noon, 1 pm FLUVOXAMINE MALEATE 64823578368 Active Alina Castaneda MD PhD Active TRAVATAN Z 0.004 % SOLN 1 gtt each eye daily TRAVOPROST 88036206797 Active CRYSTAL Suarez Active LANTUS 100 UNIT/ML SOLN 60 units sq q hs INSULIN GLARGINE 09984980900 No Longer Active CRYSTAL Suarez Active ALBUTEROL SULFATE (2.5 MG/3ML) 0.083% NEBU 1 neb tid and prn cough ALBUTEROL SULFATE (2.5 MG/3ML) 0.083% NEBU 134948 ALBUTEROL SULFATE Inactive ZYPREXA 15 MG TABS Take 1 tablet by mouth daily ZYPREXA 15 MG TABS 485394 OLANZAPINE Inactive VERAPAMIL HCL CR 120 MG TAB CR 1 qPM VERAPAMIL HCL CR 120 MG TAB CR VERAPAMIL HCL Inactive ZYPREXA 10 MG TABS Take one by mouth daily ZYPREXA 10 MG TABS 409908 OLANZAPINE Inactive TOPROL XL 100 MG [id number] 1 @ HS TOPROL XL 100 MG [id number] METOPROLOL SUCCINATE Inactive LEVEMIR 100 UNIT/ML SOLN 90 units SQ qHS LEVEMIR 100 UNIT/ML SOLN INSULIN DETEMIR Inactive PROMETHAZINE-CODEINE 6.25-10 MG/5ML SYRP 1 tsp po q 6 hours prn cough PROMETHAZINE-CODEINE 6.25-10 MG/5ML SYRP 039373 PROMETHAZINE- CODEINE Inactive GUAIFENESIN 600 MG GW21C-ZQW 1 tablet by mouth twice daily if needed for cough GUAIFENESIN 600 MG [id number] GUAIFENESIN Inactive ALBUTEROL SULFATE 0.083 % NEBU SOLN one vial per nebulizer TID and PRN cough/ soa ALBUTEROL SULFATE 0.083 % NEBU SOLN 995673 ALBUTEROL SULFATE Inactive ZYPREXA 5 MG TABS take one tablet by mouth every evening ZYPREXA 5 MG TABS 521426 OLANZAPINE Inactive HYDROCODONE-ACETAMINOPHEN 5-325 MG TABS take one tablet by mouth every four hours as needed for pain HYDROCODONE-ACETAMINOPHEN 5-325 MG TABS 747926 HYDROCODONE-ACETAMINOPHEN Inactive BACTROBAN 2 % CREAM apply to ear and nose twice daily BACTROBAN 2 % CREAM 704272 MUPIROCIN CALCIUM Inactive CYCLOBENZAPRINE HCL 10 MG TABS 1/2 tablet by mouth every 8 hours as needed for muscle spasms CYCLOBENZAPRINE HCL 10 MG TABS 551721 CYCLOBENZAPRINE HCL Inactive NAVANE 10 MG CAPS 1/2 tablet twice a day NAVANE 10 MG CAPS THIOTHIXENE Inactive DOXEPIN HCL 10 MG CAPS Take 1 tablet by mouth daily DOXEPIN HCL 10 MG CAPS 7470832 DOXEPIN HCL Inactive HYDROCODONE-ACETAMINOPHEN 7.5-325 MG TABS 1 four times a day as needed for pain HYDROCODONE-ACETAMINOPHEN 7.5-325 MG TABS 911695 HYDROCODONE-ACETAMINOPHEN Inactive NIACIN CR 500 MG CR-TABS 2 qHS NIACIN CR 500 MG CR- TABS NIACIN Inactive ORPHENADRINE CITRATE ER 100 MG [id number] 1 every 12 hr. as needed ORPHENADRINE CITRATE ER 100 MG [id number] ORPHENADRINE CITRATE Inactive ACETAMINOPHEN 500 MG TABS 2 Q 6 hr. PRN ACETAMINOPHEN 500 MG TABS 280447 ACETAMINOPHEN Inactive SAPHRIS 5 MG SUBL by mouth twice a day SAPHRIS 5 MG SUBL ASENAPINE MALEATE Inactive NIACIN ER 500 MG CR-TABS 4 qHS (for triglycerides) NIACIN ER 500 MG CR-TABS NIACIN Inactive IBUPROFEN 200 MG TABS 1 Q 6 hr. PRN IBUPROFEN 200 MG TABS 712682 IBUPROFEN Inactive FLUTICASONE PROPIONATE 50 MCG/ACT SUSP 2 sprays each nostril qDay x 30 days FLUTICASONE PROPIONATE 50 MCG/ACT SUSP 730368 FLUTICASONE PROPIONATE Inactive EQL TRUETEST TEST STRP Test blood sugar TID EQL TRUETEST TEST STRP GLUCOSE BLOOD Inactive TERESE CONTOUR TEST STRP monitor blood sugars 3x/day TERESE CONTOUR TEST STRP GLUCOSE BLOOD Inactive DETROL LA 4 MG [id number] Take 1 tablet by mouth daily DETROL LA 4 MG [id number] TOLTERODINE TARTRATE Inactive ZYPREXA 7.5 MG TABS 1 at HS ZYPREXA 7.5 MG TABS 866622 OLANZAPINE Inactive THIOTHIXENE 5 MG CAPS by mouth twice a day THIOTHIXENE 5 MG CAPS 818491 THIOTHIXENE Inactive UROXATRAL 10 MG [id number] Take 1 tablet by mouth daily UROXATRAL 10 MG [id number] ALFUZOSIN HCL Inactive ACYCLOVIR 400 MG ORAL TABS 1 pill three times daily x 5 days, for cold sore outbreak ACYCLOVIR 400 MG ORAL TABS 540953 ACYCLOVIR Inactive CEFDINIR 300 MG CAPS by mouth twice a day CEFDINIR 300 MG CAPS 440778 CEFDINIR Inactive AZITHROMYCIN 500 MG SOLR 1 po q day AZITHROMYCIN 500 MG SOLR 753132 AZITHROMYCIN Inactive AMOXICILLIN 500 MG CAPS 2 po BID x 10 days AMOXICILLIN 500 MG CAPS 724641 AMOXICILLIN Inactive PENICILLIN V POTASSIUM 500 MG TABS 1 pill by mouth three times daily PENICILLIN V POTASSIUM 500 MG TABS 613897 PENICILLIN V POTASSIUM Inactive Immunizations Vaccine Administration [...] Fluvirin, Fluarix, Agriflu(>=18 yo)) Fluzone (>3 yrs.) [JSX693] Influenza, seasonal, injectable pneumococcal immunization administered Pneumovax [...] HGBA1C - Chemistry sodium, serum 130 mmol/L 218-360 0511/06/09 potassium, serum 4.0 mmol/L 3.5-5.2 chloride, serum 92 mmol/L 98-107 carbon dioxide, venous blood 22.1 mmol/L 21.0-32.0 blood glucose 60 mg/dL 65-110 calcium, serum 9.5 mg/dL 8.5-10.1 urea nitrogen, blood 14 mg/dL 7-18 creatinine, serum 1.30 mg/dL 0.60-1.30 hemoglobin A1C, blood, as % of total hemoglobin 6.0 % 4.3-6.0 sodium, serum 131 mmol/L 601-091 7269/12/30 potassium, serum 5.0 mmol/L 3.5-5.2 chloride, serum [...] 6.0 mg/dL 2.6-7.2 sodium, serum 130 mmol/L 530-387 7701/05/01 potassium, serum 5.2 mmol/L 3.5-5.2 chloride, serum [...] 0.40 mg/dL 0.00-1.00 cholesterol, serum 151 mg/dL 220-674 2120/05/01 triglyceride, serum, fasting 356 mg/dL 30-200 HDL [...] Panel - Chemistry sodium, serum 127 mmol/L 492-312 2603/10/27 potassium, serum 4.1 mmol/L 3.5-5.2 chloride, serum [...] mg/dL 0.00-1.00 Lab Report: Comp. Metabolic Panel, [facility] - Chemistry sodium, serum 126 mmol/L 078-565 3882/02/26 potassium, serum 4.8 mmol/L 3.5-5.2 chloride, serum [...] total hemoglobin 6.9 % 4.3-6.0 Lab Report: [facility] - Chemistry hemoglobin A1C, blood, as % [...] mg/dL Encounters Code Encounter Date Provider Facility CPT-81755 Level 3 Est. Patient 10:09:22 JANITORIAL ACCOUNT MANAGER Alina Castaneda MD PhD [facility]-17958 Level 3 Est. Patient 14:36:26 JANITORIAL ACCOUNT MANAGER Marvel [facility]-65785 Level 3 Est. Patient 13:34:47 JANITORIAL ACCOUNT MANAGER Alina Castaneda MD PhD [facility]-83483 Level 3 Est. Patient 19:52:08 JANITORIAL ACCOUNT MANAGER Alina Castaneda MD PhD [facility]-47471 Level 3 Est. Patient 10:01:51 JANITORIAL ACCOUNT MANAGER [facility]-25913 Level 3 Est. Patient 21:54:06 CDT Vanessa Hickey MD [facility]-28844 Level 3 Est. Patient 08:54:46 CDT Alina Castaneda MD [facility]-19051 Level 3 Est. Patient 09:32:11 CDT Marvel [facility]-44591 Level 3 Est. Patient 12:02:49 CDT Alina Castaneda MD [facility]70042 Level 3 Est. Patient 19:17:33 CDT Alina Castaneda MD [facility]65014 Level 3 Est. Patient 13:19:10 CDT Maliheh Zigl[facility]-12760 Level 3 Est. Patient 08:20:05 CDT Alina Castaneda MD [facility]-58240 Level 3 Est. Patient 15:17:18 CDT Alina Castaneda MD [facility]-24327 Level 3 Est. Patient 14:25:36 JANITORIAL ACCOUNT MANAGER [facility]-00208 Level 3 Est. Patient 10:09:15 JANITORIAL ACCOUNT MANAGER [facility]-09695 Level 3 Est. Patient 21:28:43 CDT Alina Castaneda MD [facility]-75468 Level 3 Est. Patient 15:20:11 [facility] Est[facility] Patient 19:08:12 CDT Alina Castaneda MD [facility]-84429 Level 3 Est. Patient 15:06:39 CDT [facility]-42131 Level 4 Est. Patient 17:48:15 CDT Alina Castaneda MD [facility]-32752 Level 3 Est. Patient 14:53:49 CDT Alina Castaneda MD [facility]-10886 Level 3 Est. Patient 09:35:16 CDT Alina Castaneda MD [facility]-63605 Level 3 Est. Patient 12:23:22 CDT Alina Castaneda MD [facility]-63947 Level 3 Est. Patient 16:19:15 CDT Alina Castaneda MD [facility]-09032 Level 3 Est. Patient 21:39:56 JANITORIAL ACCOUNT MANAGER Alina Castaneda MD [facility]-86077 Level 4 Est. Patient 14:12:56 JANITORIAL ACCOUNT MANAGER Alina Castaneda MD [facility]-12232 Level 2 Est. Patient 15:34:57 JANITORIAL ACCOUNT MANAGER Alina Castaneda MD [facility]-68878 Level 3 Est. Patient 12:17:04 JANITORIAL ACCOUNT MANAGER Alina Castaneda MD [facility]-52657 Level 3 Est. Patient 09:18:18 JANITORIAL ACCOUNT MANAGER [facility]-26665 Level 2 Est. Patient 21:50:24 CDT Alina Castaneda MD [facility]-59185 Level 3 Est. Patient 09:17:28 CDT [facility]-66632 Level 4 Est. Patient 18:54:02 CDT Alina Castaneda MD [facility]-66867 Level 3 Est. Patient 10:47:10 CDT Alina Castaneda MD [facility]-92857 Level 3 Est. Patient 09:22:20 CDT [facility]-10428 Level 3 Est. Patient 16:39:43 CDT [facility]-81146 Level 3 Est. Patient 16:05:16 CDT Alina Castaneda MD [facility]-41078 Level 3 Est. Patient 00:29:15 CDT Alina Castaneda MD [facility]52453 Level 3 Est. Patient 10:49:22 JANITORIAL ACCOUNT MANAGER [facility]-23209 Level 3 Est. Patient 21:30:19 JANITORIAL ACCOUNT MANAGER Alina Castaneda MD PhD [facility] CPT-72718 Level 4 Est. Patient 17:04:11 JANITORIAL ACCOUNT MANAGER [facility] CPT-65033 Level 3 Est. Patient 15:34:11 JANITORIAL ACCOUNT MANAGER [facility] CPT-08257 Level 2 Est. Patient 12:51:58 JANITORIAL ACCOUNT MANAGER Alina Castaneda MD PhD [facility] CPT-28952 Level 3 Est. Patient 13:20:01 JANITORIAL ACCOUNT MANAGER Alina Castaneda MD PhD [facility] CPT-32089 Level 3 Est. Patient 09:23:35 CDT Alina Castaneda MD PhD [facility] Procedures Code Procedure Name Date Entry Date Standard Description CPT-36014 Bladder Scan 21:54:06 CDT CPT-G0008 Administration of Influenza Virus Vaccine 13:05:26 CDT CPT-41426 Fluzone Quadrivalent Intramuscular Suspension 0.5 ML 13: 05:26 CDT CPT-25095 Administration single or combination vaccine inc oral 11 :49:51 CDT CPT-79116 Pneumovax 11:49:51 CDT CPT-78674 Ribs unilateral 2V 12:37:22 JANITORIAL ACCOUNT MANAGER CPT-01278 Chest 2V Frontal and Lat 17:15:26 CDT CPT-86721 Abx/Therapy Injection 18:54:02 CDT CPT-J0696 Rocephin 1000 mg (Ceftriaxone) 16:00:32 CDT CPT-90652 Chest 2V Frontal and Lat 15:26:45 CDT CPT-21143 Chest 2V Frontal and Lat 10:23:27 CDT CPT-32912 Venipuncture Draw Fee 10:11:00 CDT CPT-02996 Administration single or combination vaccine inc oral 11 :56:38 CDT CPT-10448 Influenza split virus > age 3 11:56:38 CDT CPT-15519 Venipuncture Draw Fee 08:49:54 JANITORIAL ACCOUNT MANAGER CPT-01205 EKG Trac and Interp 17:54:19 JANITORIAL ACCOUNT MANAGER
--- OUTSIDE RECORDS SUMMARY | 2018-07-02 20:18 | XMS REPORT | Clinical Summary ---
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 Active Alina Castaneda MD PhD Recurrent isolated sleep paralysis SPECIAL SCREENING FOR MALIGNANT NEOPLASM OF PROSTATE V76.44 Resolved Alina Castaneda MD PhD Screening for malignant neoplasms of prostate Hypoglycemia 251.2 Resolved Alina Castaneda MD PhD Hypoglycemia, unspecified Diabetes mellitus, type II 250.00 Active Mallashondaeh Bertrandari CAMPGROUND ATTENDANT Diabetes mellitus without mention of complication, type [...] blood sugars 3 times daily GLUCOSE BLOOD 79866305129 Active Alina Castaneda MD PhD Active ACCU-CHEK ROSA UZMA Use device to check blood sugars BLOOD GLUCOSE MONITORING SUPPL 58264602076 Active Alina Castaneda MD PhD Active TRUETEST TEST STRP check sugars 4x/day GLUCOSE BLOOD 55528239871 No Longer Active Alina Castaneda MD PhD Active MORPHINE SULFATE 30 MG TABS 1 pill by mouth twice daily, for pain MORPHINE SULFATE 18926085351 Active Alina Castaneda MD PhD Active ACYCLOVIR 400 MG ORAL TABS 1 pill three times daily x 5 days, for cold sore outbreak ACYCLOVIR 55560394578 No Longer Active Alina Castaneda MD PhD Active PENICILLIN V POTASSIUM 500 MG TABS 1 pill by mouth three times daily PENICILLIN V POTASSIUM 85278987153 No Longer Active Alina Castaneda MD PhD Active LATUDA 80 MG TABS 1 tab by mouth every evening LURASIDONE HCL 33681705374 Active Alina Castaneda MD PhD Active UROXATRAL 10 MG [id number] Take 1 tablet by mouth daily ALFUZOSIN HCL 30413740945 No Longer Active Alina Castaneda MD PhD Active THIOTHIXENE 5 MG CAPS by mouth twice a day THIOTHIXENE 48510532735 No Longer Active Alina Castaneda MD PhD Active ZYPREXA 7.5 MG TABS 1 at HS OLANZAPINE 21825189174 No Longer Active Alina Castaneda MD PhD Active HUMALOG 100 UNIT/ML SOLN Take 20 units with breakfast, 10u with lunch and suppetr. INSULIN LISPRO (HUMAN) 44288532263 Active Maljohn Ziglari CAMPGROUND ATTENDANT Active LEVEMIR 100 UNIT/ML SOLN Take 70 u at 7-8pm INSULIN DETEMIR 15518844932 Active Maleh Ziglari CAMPGROUND ATTENDANT Active BD INSULIN SYRINGE 28G X 1/2" 1 ML MISC 1 four times per day INSULIN SYRINGE-NEEDLE U-100 33354851450 Active Malnivia Ziglari CAMPGROUND ATTENDANT Active CYCLOBENZAPRINE HCL 10 MG TABS 1 tablet by mouth three times daily, scheduled CYCLOBENZAPRINE HCL 76119956652 Active Alina Castaneda MD PhD Active TOLTERODINE TARTRATE 2 MG TABS 1 pill twice daily, for bladder TOLTERODINE TARTRATE 73082355770 Active Alina Castaneda MD PhD Active DETROL LA 4 MG [id number] Take 1 tablet by mouth daily TOLTERODINE TARTRATE 72124684632 No Longer Active Alina Castaneda MD PhD Active HYDROCODONE-ACETAMINOPHEN 5-325 MG TABS 2 tabs by mouth three times daily as needed for pain HYDROCODONE-ACETAMINOPHEN 95762326817 Active Alina Castaneda MD PhD Active TERESE CONTOUR TEST STRP monitor blood sugars 3x/day GLUCOSE BLOOD 86915278969 No Longer Active Alina Castaneda MD PhD Active EQL TRUETEST TEST STRP Test blood sugar TID GLUCOSE BLOOD 47589523352 No Longer Active Alina Castaneda MD PhD Active FLUTICASONE PROPIONATE 50 MCG/ACT SUSP 2 sprays each nostril qDay x 30 days FLUTICASONE PROPIONATE 17366681370 No Longer Active Alina Castaneda MD PhD Active IBUPROFEN 200 MG TABS 1 Q 6 hr. PRN IBUPROFEN 88489783464 No Longer Active Alina Castaneda MD PhD Active NIACIN ER 500 MG CR-TABS 4 qHS (for triglycerides) NIACIN 63171970232 No Longer Active Alina Castaneda MD PhD Active ALFUZOSIN HCL ER 10 MG [id number] 1 tablet daily ALFUZOSIN HCL 09226593496 Active Vanessa Hickey MD Active CLONAZEPAM 1 MG TABS 1 pill by mouth three times daily CLONAZEPAM 75897064375 Active Alina Castaneda MD PhD Active LOVAZA 1 GM CAPS 4 daily (for triglycerides) [id number] ETHYL ESTERS 72684669150 Active Alina Castaneda MD PhD Active SAPHRIS 5 MG SUBL by mouth twice a day ASENAPINE MALEATE 09573962527 No Longer Active Marvel MARROQUIN Active ACETAMINOPHEN 500 MG TABS 2 Q 6 hr. PRN ACETAMINOPHEN 12478644196 No Longer Active Marvel MARROQUIN Active VERAPAMIL HCL ER 120 MG [id number] 1 pill by mouth twice a day, for headache prevention/control VERAPAMIL HCL 70964682989 Active Alina Castaneda MD PhD Active ORPHENADRINE CITRATE ER 100 MG [id number] 1 every 12 hr. as needed ORPHENADRINE CITRATE 36622086457 No Longer Active Alina Castaneda MD PhD Active NIACIN CR 500 MG CR-TABS 2 qHS NIACIN 80431515152 No Longer Active Alina Castaneda MD PhD Active AMOXICILLIN 500 MG CAPS 2 po BID x 10 days AMOXICILLIN 83442424557 No Longer Active Alina Castaneda MD PhD Active HYDROCODONE-ACETAMINOPHEN 7.5-325 MG TABS 1 four times a day as needed for pain HYDROCODONE-ACETAMINOPHEN 67306744849 No Longer Active Alina Castaneda MD PhD Active METFORMIN HCL ER 500 MG [id number]-IQI Take three tablets by mouth everyday METFORMIN HCL 60795896392 Active Marvel Mackenzieglestela MENDOZAP Active DOXEPIN HCL 10 MG CAPS Take 1 tablet by mouth daily DOXEPIN HCL 41546298810 No Longer Active Salina Han [facility] Active NAVANE 10 MG CAPS 1/2 tablet twice a day THIOTHIXENE No Longer Active Salina Han [facility] Active CYCLOBENZAPRINE HCL 10 MG TABS 1/2 tablet by mouth every 8 hours as needed for muscle spasms CYCLOBENZAPRINE HCL 48000612059 No Longer Active Alina Castaneda MD PhD Active BACTROBAN 2 % CREAM apply to ear and nose twice daily MUPIROCIN CALCIUM 96771314321 No Longer Active Alina Castaneda MD PhD Active HYDROCODONE-ACETAMINOPHEN 5-325 MG TABS take one tablet by mouth every four hours as needed for pain HYDROCODONE-ACETAMINOPHEN 55772748941 No Longer Active Alina Castaneda MD PhD Active ZOLPIDEM TARTRATE 10 MG TABS take at bedtime ZOLPIDEM TARTRATE 79714320068 Active Alina Castaneda MD PhD Active ZYPREXA 5 MG TABS take one tablet by mouth every evening OLANZAPINE 22141046472 No Longer Active Alina Castaneda MD PhD Active ALBUTEROL SULFATE 0.083 % NEBU SOLN one vial per nebulizer TID and PRN cough/ soa ALBUTEROL SULFATE 89546395092 No Longer Active Alina Castaneda MD PhD Active GUAIFENESIN 600 MG [id number]-[id number] 1 tablet by mouth twice daily if needed for cough GUAIFENESIN 41221089779 No Longer Active Marvel Charles CAMPGROUND ATTENDANT Active AZITHROMYCIN 500 MG SOLR 1 po q day AZITHROMYCIN 88316247625 No Longer Active Alina Castaneda MD PhD Active METOPROLOL SUCCINATE 100 MG RH94R-CFR 1 by mouth daily for blood pressure METOPROLOL SUCCINATE 55140998968 Active Alina Castaneda MD PhD Active PROMETHAZINE-CODEINE 6.25-10 MG/5ML SYRP 1 tsp po q 6 hours prn cough PROMETHAZINE-CODEINE 00307778324 No Longer Active Alina Castaneda MD PhD Active CEFDINIR 300 MG CAPS by mouth twice a day CEFDINIR 37971186924 No Longer Active Alina Castaneda MD PhD Active METFORMIN HCL 500 MG GG68N-ZIJ Take 3 tablets by mouth everyday METFORMIN HCL 43713284557 No Longer Active Alina Castaneda MD PhD Active LEVEMIR 100 UNIT/ML SOLN 90 units SQ qHS INSULIN DETEMIR 93197385706 No Longer Active Marvel MARROQUIN Active TOPROL XL 100 MG GM32F-YWE 1 @ HS METOPROLOL SUCCINATE 51561395098 No Longer Active Marvel MARROQUIN Active ALLOPURINOL 300 MG TABS Take one by mouth daily ALLOPURINOL 48462467867 Active Alina Castaneda MD PhD Active ZYPREXA 10 MG TABS Take one by mouth daily OLANZAPINE 89323044933 No Longer Active Alina Castaneda MD PhD Active NOVOLOG 100 UNIT/ML SOLN 40 units with every meal INSULIN ASPART 14869946376 No Longer Active Alina Castaneda MD PhD Active VERAPAMIL HCL CR 120 MG TAB CR 1 qPM VERAPAMIL HCL 63250456633 No Longer Active Salina Han [facility] Active ZYPREXA 15 MG TABS Take 1 tablet by mouth daily OLANZAPINE 59073256154 No Longer Active Marvel MARROQUIN Active LISINOPRIL 20 MG TABS 1 BID LISINOPRIL 66419194087 Active Alina Castaneda MD PhD Active ALBUTEROL SULFATE (2.5 MG/3ML) 0.083% NEBU 1 neb tid and prn cough ALBUTEROL SULFATE 54314401709 No Longer Active Alina Castaneda MD PhD Active FLUVOXAMINE MALEATE 100 MG TABS Take one (1) tablet by mouth am, 1/2 at noon, 1 pm FLUVOXAMINE MALEATE 14878190420 Active Alina Castaneda MD PhD Active TRAVATAN Z 0.004 % SOLN 1 gtt each eye daily TRAVOPROST 50022414250 Active CRYSTAL Suarez Active LANTUS 100 UNIT/ML SOLN 60 units sq q hs INSULIN GLARGINE 99410442655 No Longer Active CRYSTAL Suarez Active ALBUTEROL SULFATE (2.5 MG/3ML) 0.083% NEBU 1 neb tid and prn cough ALBUTEROL SULFATE (2.5 MG/3ML) 0.083% NEBU 435092 ALBUTEROL SULFATE Inactive ZYPREXA 15 MG TABS Take 1 tablet by mouth daily ZYPREXA 15 MG TABS 404818 OLANZAPINE Inactive VERAPAMIL HCL CR 120 MG TAB CR 1 qPM VERAPAMIL HCL CR 120 MG TAB CR VERAPAMIL HCL Inactive ZYPREXA 10 MG TABS Take one by mouth daily ZYPREXA 10 MG TABS 607565 OLANZAPINE Inactive TOPROL XL 100 MG [id number] 1 @ HS TOPROL XL 100 MG [id number]-ESI METOPROLOL SUCCINATE Inactive LEVEMIR 100 UNIT/ML SOLN 90 units SQ qHS LEVEMIR 100 UNIT/ML SOLN INSULIN DETEMIR Inactive PROMETHAZINE-CODEINE 6.25-10 MG/5ML SYRP 1 tsp po q 6 hours prn cough PROMETHAZINE-CODEINE 6.25-10 MG/5ML SYRP 314940 PROMETHAZINE- CODEINE Inactive GUAIFENESIN 600 MG [id number] 1 tablet by mouth twice daily if needed for cough GUAIFENESIN 600 MG VS85B-SEA GUAIFENESIN Inactive ALBUTEROL SULFATE 0.083 % NEBU SOLN one vial per nebulizer TID and PRN cough/ soa ALBUTEROL SULFATE 0.083 % NEBU SOLN 755187 ALBUTEROL SULFATE Inactive ZYPREXA 5 MG TABS take one tablet by mouth every evening ZYPREXA 5 MG TABS 807680 OLANZAPINE Inactive HYDROCODONE-ACETAMINOPHEN 5-325 MG TABS take one tablet by mouth every four hours as needed for pain HYDROCODONE-ACETAMINOPHEN 5-325 MG TABS 646139 HYDROCODONE-ACETAMINOPHEN Inactive BACTROBAN 2 % CREAM apply to ear and nose twice daily BACTROBAN 2 % CREAM 958976 MUPIROCIN CALCIUM Inactive CYCLOBENZAPRINE HCL 10 MG TABS 1/2 tablet by mouth every 8 hours as needed for muscle spasms CYCLOBENZAPRINE HCL 10 MG TABS 813569 CYCLOBENZAPRINE HCL Inactive NAVANE 10 MG CAPS 1/2 tablet twice a day NAVANE 10 MG CAPS THIOTHIXENE Inactive DOXEPIN HCL 10 MG CAPS Take 1 tablet by mouth daily DOXEPIN HCL 10 MG CAPS 3387156 DOXEPIN HCL Inactive HYDROCODONE-ACETAMINOPHEN 7.5-325 MG TABS 1 four times a day as needed for pain HYDROCODONE-ACETAMINOPHEN 7.5-325 MG TABS 009154 HYDROCODONE-ACETAMINOPHEN Inactive NIACIN CR 500 MG CR-TABS 2 qHS NIACIN CR 500 MG CR- TABS NIACIN Inactive ORPHENADRINE CITRATE ER 100 MG [id number] 1 every 12 hr. as needed ORPHENADRINE CITRATE ER 100 MG [id number]-KTM ORPHENADRINE CITRATE Inactive ACETAMINOPHEN 500 MG TABS 2 Q 6 hr. PRN ACETAMINOPHEN 500 MG TABS 830489 ACETAMINOPHEN Inactive SAPHRIS 5 MG SUBL by mouth twice a day SAPHRIS 5 MG SUBL ASENAPINE MALEATE Inactive NIACIN ER 500 MG CR-TABS 4 qHS (for triglycerides) NIACIN ER 500 MG CR-TABS NIACIN Inactive IBUPROFEN 200 MG TABS 1 Q 6 hr. PRN IBUPROFEN 200 MG TABS 018462 IBUPROFEN Inactive FLUTICASONE PROPIONATE 50 MCG/ACT SUSP 2 sprays each nostril qDay x 30 days FLUTICASONE PROPIONATE 50 MCG/ACT SUSP 699525 FLUTICASONE PROPIONATE Inactive EQL TRUETEST TEST STRP Test blood sugar TID EQL TRUETEST TEST STRP GLUCOSE BLOOD Inactive TERESE CONTOUR TEST STRP monitor blood sugars 3x/day TERESE CONTOUR TEST STRP GLUCOSE BLOOD Inactive DETROL LA 4 MG [id number] Take 1 tablet by mouth daily DETROL LA 4 MG [id number] TOLTERODINE TARTRATE Inactive ZYPREXA 7.5 MG TABS 1 at HS ZYPREXA 7.5 MG TABS 771538 OLANZAPINE Inactive THIOTHIXENE 5 MG CAPS by mouth twice a day THIOTHIXENE 5 MG CAPS 527410 THIOTHIXENE Inactive UROXATRAL 10 MG [id number] Take 1 tablet by mouth daily UROXATRAL 10 MG OL80Z-GNS ALFUZOSIN HCL Inactive ACYCLOVIR 400 MG ORAL TABS 1 pill three times daily x 5 days, for cold sore outbreak ACYCLOVIR 400 MG ORAL TABS 263890 ACYCLOVIR Inactive TRUETEST TEST STRP check sugars 4x/day TRUETEST TEST STRP GLUCOSE BLOOD Inactive CEFDINIR 300 MG CAPS by mouth twice a day CEFDINIR 300 MG CAPS 350070 CEFDINIR Inactive AZITHROMYCIN 500 MG SOLR 1 po q day AZITHROMYCIN 500 MG SOLR 939451 AZITHROMYCIN Inactive AMOXICILLIN 500 MG CAPS 2 po BID x 10 days AMOXICILLIN 500 MG CAPS 918418 AMOXICILLIN Inactive PENICILLIN V POTASSIUM 500 MG TABS 1 pill by mouth three times daily PENICILLIN V POTASSIUM 500 MG TABS 609395 PENICILLIN V POTASSIUM Inactive Immunizations Vaccine Administration [...] Fluvirin, Fluarix, Agriflu(>=18 yo)) Fluzone (>3 yrs.) [[id number]] Influenza, seasonal, injectable pneumococcal immunization administered Pneumovax [...] HGBA1C - Chemistry sodium, serum 130 mmol/L 190-242 1740/06/09 potassium, serum 4.0 mmol/L 3.5-5.2 chloride, serum 92 mmol/L 98-107 carbon dioxide, venous blood 22.1 mmol/L 21.0-32.0 blood glucose 60 mg/dL 65-110 calcium, serum 9.5 mg/dL 8.5-10.1 urea nitrogen, blood 14 mg/dL 7-18 creatinine, serum 1.30 mg/dL 0.60-1.30 hemoglobin A1C, blood, as % of total hemoglobin 6.0 % 4.3-6.0 sodium, serum 131 mmol/L 345-664 1732/12/30 potassium, serum 5.0 mmol/L 3.5-5.2 chloride, serum [...] 6.0 mg/dL 2.6-7.2 sodium, serum 130 mmol/L 318-566 9378/05/01 potassium, serum 5.2 mmol/L 3.5-5.2 chloride, serum [...] 0.40 mg/dL 0.00-1.00 cholesterol, serum 151 mg/dL 982-490 2939/05/01 triglyceride, serum, fasting 356 mg/dL 30-200 HDL [...] Panel - Chemistry sodium, serum 127 mmol/L 465-882 7362/10/27 potassium, serum 4.1 mmol/L 3.5-5.2 chloride, serum [...] mg/dL Encounters Code Encounter Date Provider Facility CPT-10502 Level 3 Est. Patient 10:09:22 COMPOSITION TILE LAYER Alina Castaneda MD PhD [facility] CPT-25474 Level 3 Est. Patient 14:36:26 COMPOSITION TILE LAYER Marvel Charles [facility] CPT-22082 Level 3 Est. Patient 13:34:47 COMPOSITION TILE LAYER Alina Castaneda MD PhD [facility] CPT-11594 Level 3 Est. Patient 19:52:08 KHALIF Castaneda MD PhD [facility] CPT-93250 Level 3 Est. Patient 10:01:51 COMPOSITION TILE LAYER Marvel [facility] CPT-30065 Level 3 Est. Patient 21:54:06 CDT Vanessa Hickey MD [facility]-55472 Level 3 Est. Patient 08:54:46 CDT Alina Castaneda MD [facility]60014 Level 3 Est. Patient 09:32:11 [facility]-89762 Level 3 Est. Patient 12:02:49 CDT Alina Castaneda MD [facility]08708 Level 3 Est. Patient 19:17:33 CDT Alina Castaneda MD [facility]83036 Level 3 Est. Patient 13:19:10 [facility]-83654 Level 3 Est. Patient 08:20:05 CDT Alina Castaneda MD [facility]-06302 Level 3 Est. Patient 15:17:18 CDT Alina Castaneda MD [facility]85548 Level 3 Est. Patient 14:25:36 COMPOSITION TILE LAYER [facility] Araceli [facility]-53316 Level 3 Est. Patient 10:09:15 COMPOSITION TILE LAYER [facility]-89174 Level 3 Est. Patient 21:28:43 CDT Alina Castaneda MD [facility]05192 Level 3 Est. Patient 15:20:11 CDT Marvel Charles [facility]-73154 Level 4 Est. Patient 19:08:12 CDT Alina Castaneda MD [facility]23705 Level 3 Est. Patient 15:06:39 [facility]-36334 Level 4 Est. Patient 17:48:15 CDT Alina Castaneda MD [facility]-44185 Level 3 Est. Patient 14:53:49 CDT Alina Castaneda MD [facility]-97286 Level 3 Est. Patient 09:35:16 CDT Alina Castaneda MD [facility]-72818 Level 3 Est. Patient 12:23:22 CDT Alina Castaneda MD [facility]-65690 Level 3 Est. Patient 16:19:15 CDT Alina Castaneda MD [facility]-70391 Level 3 Est. Patient 21:39:56 COMPOSITION TILE LAYER Alina Castaneda MD [facility]-63628 Level 4 Est. Patient 14:12:56 COMPOSITION TILE LAYER Alina Castaneda MD [facility]-79521 Level 2 Est. Patient 15:34:57 COMPOSITION TILE LAYER Alina Castaneda MD [facility]-47832 Level 3 Est. Patient 12:17:04 COMPOSITION TILE LAYER Alina Castaneda MD [facility]-70789 Level 3 Est. Patient 09:18:18 COMPOSITION TILE LAYER Marvel Charles [facility]-42844 Level 2 Est. Patient 21:50:24 CDT Alina Castaneda MD [facility]-96213 Level 3 Est. Patient 09:17:28 CDT Marvel Charles [facility]-48741 Level 4 Est. Patient 18:54:02 CDT Alina Castaneda MD [facility]-32044 Level 3 Est. Patient 10:47:10 CDT Alina Castaneda MD [facility]-63610 Level 3 Est. Patient 09:22:20 CDT Marvel [facility] CPT-41201 Level 3 Est. Patient 16:39:43 CDT Brooksnivia [facility] CPT-34829 Level 3 Est. Patient 16:05:16 CDT Alina Castaneda MD [facility] CPT-14464 Level 3 Est. Patient 00:29:15 CDT Alina Castaneda MD [facility]-76387 Level 3 Est. Patient 10:49:22 COMPOSITION TILE LAYER Marvel [facility] CPT-05559 Level 3 Est. Patient 21:30:19 COMPOSITION TILE LAYER Alina Castaneda MD [facility] CPT-61407 Level 4 Est. Patient 17:04:11 [facility]75327 Level 3 Est. Patient 15:34:11 COMPOSITION TILE LAYER [facility]-26453 Level 2 Est. Patient 12:51:58 COMPOSITION TILE LAYER Alina Castaneda MD [facility] CPT-38408 Level 3 Est. Patient 13:20:01 COMPOSITION TILE LAYER Alina Castaneda MD [facility] CPT-38279 Level 3 Est. Patient 09:23:35 CDT Alina Castaneda MD [facility] Procedures Code Procedure Name Date Entry Date Standard Description CPT-60624 Bladder Scan 21:54:06 CDT CPT-G0008 Administration of Influenza Virus Vaccine 13:05:26 CDT CPT-15918 Fluzone Quadrivalent Intramuscular Suspension 0.5 ML 13: 05:26 CDT CPT-93459 Administration single or combination vaccine inc oral 11 :49:51 CDT CPT-24484 Pneumovax 11:49:51 CDT CPT-18755 Ribs unilateral 2V 12:37:22 COMPOSITION TILE LAYER CPT-98692 Chest 2V Frontal and Lat 17:15:26 CDT CPT-98927 Abx/Therapy Injection 18:54:02 CDT CPT-J0696 Rocephin 1000 mg (Ceftriaxone) 16:00:32 CDT CPT-91620 Chest 2V Frontal and Lat 15:26:45 CDT CPT-09813 Chest 2V Frontal and Lat 10:23:27 CDT CPT-10719 Venipuncture Draw Fee 10:11:00 CDT CPT-24886 Administration single or combination vaccine inc oral 11 :56:38 CDT CPT-45941 Influenza split virus > age 3 11:56:38 CDT CPT-92869 Venipuncture Draw Fee 08:49:54 COMPOSITION TILE LAYER CPT-82039 EKG Trac and Interp 17:54:19 COMPOSITION TILE LAYER
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
--- OUTSIDE RECORDS SUMMARY | 2018-07-02 20:21 | XMS REPORT | Clinical Summary ---
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 Active Alina Castaneda MD PhD Recurrent isolated sleep paralysis SPECIAL SCREENING FOR MALIGNANT NEOPLASM OF PROSTATE V76.44 Resolved Alina Castaneda MD PhD Screening for malignant neoplasms of prostate Hypoglycemia 251.2 Resolved Alina Castaneda MD PhD Hypoglycemia, unspecified Diabetes mellitus, type II 250.00 Active Mallashondaeh Bertrandari FLOUR INSPECTOR Diabetes mellitus without mention of complication, [...] blood sugars 3 times daily GLUCOSE BLOOD 42600526404 Active Alina Castaneda MD PhD Active ACCU-CHEK ROSA UZMA Use device to check blood sugars BLOOD GLUCOSE MONITORING SUPPL 59333335442 Active Alina Castaneda MD PhD Active TRUETEST TEST STRP check sugars 4x/day GLUCOSE BLOOD 45745588918 No Longer Active Alina Castaneda MD PhD Active MORPHINE SULFATE 30 MG TABS 1 pill by mouth twice daily, for pain MORPHINE SULFATE 83968596091 Active Alina Castaneda MD PhD Active ACYCLOVIR 400 MG ORAL TABS 1 pill three times daily x 5 days, for cold sore outbreak ACYCLOVIR 71494535947 No Longer Active Alina Castaneda MD PhD Active PENICILLIN V POTASSIUM 500 MG TABS 1 pill by mouth three times daily PENICILLIN V POTASSIUM 95120772080 No Longer Active Alina Castaneda MD PhD Active LATUDA 80 MG TABS 1 tab by mouth every evening LURASIDONE HCL 97920035244 Active Alina Castaneda MD PhD Active UROXATRAL 10 MG [id number]-SIJ Take 1 tablet by mouth daily ALFUZOSIN HCL 22008451145 No Longer Active Alina Castaneda MD PhD Active THIOTHIXENE 5 MG CAPS by mouth twice a day THIOTHIXENE 03184893012 No Longer Active Alina Castaneda MD PhD Active ZYPREXA 7.5 MG TABS 1 at HS OLANZAPINE 85745771224 No Longer Active Alina Castaneda MD PhD Active HUMALOG 100 UNIT/ML SOLN Take 20 units with breakfast, 10u with lunch and suppetr. INSULIN LISPRO (HUMAN) 70729576946 Active Maljohn Ziglari FLOUR INSPECTOR Active LEVEMIR 100 UNIT/ML SOLN Take 70 u at 7-8pm INSULIN DETEMIR 59255207472 Active Maliheh Ziglari FLOUR INSPECTOR Active BD INSULIN SYRINGE 28G X 1/2" 1 ML MISC 1 four times per day INSULIN SYRINGE-NEEDLE U-100 72265972000 Active Malnivia Ziglari FLOUR INSPECTOR Active CYCLOBENZAPRINE HCL 10 MG TABS 1 tablet by mouth three times daily, scheduled CYCLOBENZAPRINE HCL 46045581171 Active Alina Castaneda MD PhD Active TOLTERODINE TARTRATE 2 MG TABS 1 pill twice daily, for bladder TOLTERODINE TARTRATE 41328891470 Active Alina Castaneda MD PhD Active DETROL LA 4 MG [id number]-PLO Take 1 tablet by mouth daily TOLTERODINE TARTRATE 94814539078 No Longer Active Alina Castaneda MD PhD Active HYDROCODONE-ACETAMINOPHEN 5-325 MG TABS 2 tabs by mouth three times daily as needed for pain HYDROCODONE-ACETAMINOPHEN 86976522179 Active Rhett Luther DO Active TERESE CONTOUR TEST STRP monitor blood sugars 3x/day GLUCOSE BLOOD 78219509975 No Longer Active Alina Castaneda MD PhD Active EQL TRUETEST TEST STRP Test blood sugar TID GLUCOSE BLOOD 95921094886 No Longer Active Alina Castaneda MD PhD Active FLUTICASONE PROPIONATE 50 MCG/ACT SUSP 2 sprays each nostril qDay x 30 days FLUTICASONE PROPIONATE 04944637025 No Longer Active Alina Castaneda MD PhD Active IBUPROFEN 200 MG TABS 1 Q 6 hr. PRN IBUPROFEN 25455875472 No Longer Active Alina Castaneda MD PhD Active NIACIN ER 500 MG CR-TABS 4 qHS (for triglycerides) NIACIN 06106045552 No Longer Active Alina Castaneda MD PhD Active ALFUZOSIN HCL ER 10 MG [id number]-MNM 1 tablet daily ALFUZOSIN HCL 07028860288 Active Vanessa Hickey MD Active CLONAZEPAM 1 MG TABS 1 pill by mouth three times daily CLONAZEPAM 22718235940 Active Alina Castaneda MD PhD Active LOVAZA 1 GM CAPS 4 daily (for triglycerides) DUSHU-6-NPOU ETHYL ESTERS 64883712809 Active Alina Castaneda MD PhD Active SAPHRIS 5 MG SUBL by mouth twice a day ASENAPINE MALEATE 04078926566 No Longer Active Marvel MARROQUIN Active ACETAMINOPHEN 500 MG TABS 2 Q 6 hr. PRN ACETAMINOPHEN 40350364871 No Longer Active Maljohn MENDOZAP Active VERAPAMIL HCL ER 120 MG [id number]-RTD 1 pill by mouth twice a day, for headache prevention/control VERAPAMIL HCL 58200540235 Active Alina Castaneda MD PhD Active ORPHENADRINE CITRATE ER 100 MG WH73D-BRR 1 every 12 hr. as needed ORPHENADRINE CITRATE 39477668684 No Longer Active Alina Castaneda MD PhD Active NIACIN CR 500 MG CR-TABS 2 qHS NIACIN 26191941075 No Longer Active Alina Castaneda MD PhD Active AMOXICILLIN 500 MG CAPS 2 po BID x 10 days AMOXICILLIN 81317300498 No Longer Active Alina Castaneda MD PhD Active HYDROCODONE-ACETAMINOPHEN 7.5-325 MG TABS 1 four times a day as needed for pain HYDROCODONE-ACETAMINOPHEN 60878468929 No Longer Active Alina Castaneda MD PhD Active METFORMIN HCL ER 500 MG [id number] Take three tablets by mouth everyday METFORMIN HCL 71556745022 Active Mallashondaeh Ziglestela FLOUR INSPECTOR Active DOXEPIN HCL 10 MG CAPS Take 1 tablet by mouth daily DOXEPIN HCL 68331237699 No Longer Active Salina Han [facility] Active NAVANE 10 MG CAPS 1/2 tablet twice a day THIOTHIXENE No Longer Active Salina Han [facility] Active CYCLOBENZAPRINE HCL 10 MG TABS 1/2 tablet by mouth every 8 hours as needed for muscle spasms CYCLOBENZAPRINE HCL 05613277698 No Longer Active Alina Castaneda MD PhD Active BACTROBAN 2 % CREAM apply to ear and nose twice daily MUPIROCIN CALCIUM 68375214123 No Longer Active Alina Castaneda MD PhD Active HYDROCODONE-ACETAMINOPHEN 5-325 MG TABS take one tablet by mouth every four hours as needed for pain HYDROCODONE-ACETAMINOPHEN 69658941233 No Longer Active Alina Castaneda MD PhD Active ZOLPIDEM TARTRATE 10 MG TABS take at bedtime ZOLPIDEM TARTRATE 53380967706 Active Alina Castaneda MD PhD Active ZYPREXA 5 MG TABS take one tablet by mouth every evening OLANZAPINE 48467008308 No Longer Active Alina Castaneda MD PhD Active ALBUTEROL SULFATE 0.083 % NEBU SOLN one vial per nebulizer TID and PRN cough/ soa ALBUTEROL SULFATE 44468083739 No Longer Active Alina Castaneda MD PhD Active GUAIFENESIN 600 MG LO26U-ESU 1 tablet by mouth twice daily if needed for cough GUAIFENESIN 77241176558 No Longer Active Marvel Charles [facility] Active AZITHROMYCIN 500 MG SOLR 1 po q day AZITHROMYCIN 36187153152 No Longer Active Alina Castaneda MD PhD Active METOPROLOL SUCCINATE 100 MG [id number] 1 by mouth daily for blood pressure METOPROLOL SUCCINATE 43014048705 Active Alina Castaneda MD PhD Active PROMETHAZINE-CODEINE 6.25-10 MG/5ML SYRP 1 tsp po q 6 hours prn cough PROMETHAZINE-CODEINE 88262329172 No Longer Active Alina Castaneda MD PhD Active CEFDINIR 300 MG CAPS by mouth twice a day CEFDINIR 38238201967 No Longer Active Alina Castaneda MD PhD Active METFORMIN HCL 500 MG KL29H-GTW Take 3 tablets by mouth everyday METFORMIN HCL 22297392206 No Longer Active Alina Castaneda MD PhD Active LEVEMIR 100 UNIT/ML SOLN 90 units SQ qHS INSULIN DETEMIR 21702012206 No Longer Active Marvel MARROQUIN Active TOPROL XL 100 MG DN86L-JPD 1 @ HS METOPROLOL SUCCINATE 37203684216 No Longer Active Marvel MARROQUIN Active ALLOPURINOL 300 MG TABS Take one by mouth daily ALLOPURINOL 49397247738 Active Alina Castaneda MD PhD Active ZYPREXA 10 MG TABS Take one by mouth daily OLANZAPINE 53656412549 No Longer Active Alina Castaneda MD PhD Active NOVOLOG 100 UNIT/ML SOLN 40 units with every meal INSULIN ASPART 75932398371 No Longer Active Alina Castaneda MD PhD Active VERAPAMIL HCL CR 120 MG TAB CR 1 qPM VERAPAMIL HCL 95273739654 No Longer Active Salina Han Ariela Active ZYPREXA 15 MG TABS Take 1 tablet by mouth daily OLANZAPINE 04081854715 No Longer Active Marvel MARROQUIN Active LISINOPRIL 20 MG TABS 1 BID LISINOPRIL 53310572778 Active Alina Castaneda MD PhD Active ALBUTEROL SULFATE (2.5 MG/3ML) 0.083% NEBU 1 neb tid and prn cough ALBUTEROL SULFATE 70182828364 No Longer Active Alina Castaneda MD PhD Active FLUVOXAMINE MALEATE 100 MG TABS Take one (1) tablet by mouth am, 1/2 at noon, 1 pm FLUVOXAMINE MALEATE 53761895240 Active Alina Castaneda MD PhD Active TRAVATAN Z 0.004 % SOLN 1 gtt each eye daily TRAVOPROST 46786197965 Active CRYSTAL Suarez Active LANTUS 100 UNIT/ML SOLN 60 units sq q hs INSULIN GLARGINE 02329493472 No Longer Active CRYSTAL Suarez Active ALBUTEROL SULFATE (2.5 MG/3ML) 0.083% NEBU 1 neb tid and prn cough ALBUTEROL SULFATE (2.5 MG/3ML) 0.083% NEBU 782246 ALBUTEROL SULFATE Inactive ZYPREXA 15 MG TABS Take 1 tablet by mouth daily ZYPREXA 15 MG TABS 930349 OLANZAPINE Inactive VERAPAMIL HCL CR 120 MG TAB CR 1 qPM VERAPAMIL HCL CR 120 MG TAB CR VERAPAMIL HCL Inactive ZYPREXA 10 MG TABS Take one by mouth daily ZYPREXA 10 MG TABS 628606 OLANZAPINE Inactive TOPROL XL 100 MG [id number] 1 @ HS TOPROL XL 100 MG OA50L-QYK METOPROLOL SUCCINATE Inactive LEVEMIR 100 UNIT/ML SOLN 90 units SQ qHS LEVEMIR 100 UNIT/ML SOLN INSULIN DETEMIR Inactive PROMETHAZINE-CODEINE 6.25-10 MG/5ML SYRP 1 tsp po q 6 hours prn cough PROMETHAZINE-CODEINE 6.25-10 MG/5ML SYRP 813383 PROMETHAZINE- CODEINE Inactive GUAIFENESIN 600 MG LI74Q-IGY 1 tablet by mouth twice daily if needed for cough GUAIFENESIN 600 MG FT00D-VZD GUAIFENESIN Inactive ALBUTEROL SULFATE 0.083 % NEBU SOLN one vial per nebulizer TID and PRN cough/ soa ALBUTEROL SULFATE 0.083 % NEBU SOLN 081316 ALBUTEROL SULFATE Inactive ZYPREXA 5 MG TABS take one tablet by mouth every evening ZYPREXA 5 MG TABS 493719 OLANZAPINE Inactive HYDROCODONE-ACETAMINOPHEN 5-325 MG TABS take one tablet by mouth every four hours as needed for pain HYDROCODONE-ACETAMINOPHEN 5-325 MG TABS 590489 HYDROCODONE-ACETAMINOPHEN Inactive BACTROBAN 2 % CREAM apply to ear and nose twice daily BACTROBAN 2 % CREAM 034541 MUPIROCIN CALCIUM Inactive CYCLOBENZAPRINE HCL 10 MG TABS 1/2 tablet by mouth every 8 hours as needed for muscle spasms CYCLOBENZAPRINE HCL 10 MG TABS 086291 CYCLOBENZAPRINE HCL Inactive NAVANE 10 MG CAPS 1/2 tablet twice a day NAVANE 10 MG CAPS THIOTHIXENE Inactive DOXEPIN HCL 10 MG CAPS Take 1 tablet by mouth daily DOXEPIN HCL 10 MG CAPS 7848980 DOXEPIN HCL Inactive HYDROCODONE-ACETAMINOPHEN 7.5-325 MG TABS 1 four times a day as needed for pain HYDROCODONE-ACETAMINOPHEN 7.5-325 MG TABS 295420 HYDROCODONE-ACETAMINOPHEN Inactive NIACIN CR 500 MG CR-TABS 2 qHS NIACIN CR 500 MG CR- TABS NIACIN Inactive ORPHENADRINE CITRATE ER 100 MG [id number] 1 every 12 hr. as needed ORPHENADRINE CITRATE ER 100 MG [id number]-ZWM ORPHENADRINE CITRATE Inactive ACETAMINOPHEN 500 MG TABS 2 Q 6 hr. PRN ACETAMINOPHEN 500 MG TABS 489776 ACETAMINOPHEN Inactive SAPHRIS 5 MG SUBL by mouth twice a day SAPHRIS 5 MG SUBL ASENAPINE MALEATE Inactive NIACIN ER 500 MG CR-TABS 4 qHS (for triglycerides) NIACIN ER 500 MG CR-TABS NIACIN Inactive IBUPROFEN 200 MG TABS 1 Q 6 hr. PRN IBUPROFEN 200 MG TABS 413402 IBUPROFEN Inactive FLUTICASONE PROPIONATE 50 MCG/ACT SUSP 2 sprays each nostril qDay x 30 days FLUTICASONE PROPIONATE 50 MCG/ACT SUSP 939057 FLUTICASONE PROPIONATE Inactive EQL TRUETEST TEST STRP Test blood sugar TID EQL TRUETEST TEST STRP GLUCOSE BLOOD Inactive TERESE CONTOUR TEST STRP monitor blood sugars 3x/day TERESE CONTOUR TEST STRP GLUCOSE BLOOD Inactive DETROL LA 4 MG [id number] Take 1 tablet by mouth daily DETROL LA 4 MG [id number]-WSF TOLTERODINE TARTRATE Inactive ZYPREXA 7.5 MG TABS 1 at HS ZYPREXA 7.5 MG TABS 948384 OLANZAPINE Inactive THIOTHIXENE 5 MG CAPS by mouth twice a day THIOTHIXENE 5 MG CAPS 174709 THIOTHIXENE Inactive UROXATRAL 10 MG GN29F-PLO Take 1 tablet by mouth daily UROXATRAL 10 MG HT54O-CPK ALFUZOSIN HCL Inactive ACYCLOVIR 400 MG ORAL TABS 1 pill three times daily x 5 days, for cold sore outbreak ACYCLOVIR 400 MG ORAL TABS 572789 ACYCLOVIR Inactive TRUETEST TEST STRP check sugars 4x/day TRUETEST TEST STRP GLUCOSE BLOOD Inactive CEFDINIR 300 MG CAPS by mouth twice a day CEFDINIR 300 MG CAPS 230489 CEFDINIR Inactive AZITHROMYCIN 500 MG SOLR 1 po q day AZITHROMYCIN 500 MG SOLR 956273 AZITHROMYCIN Inactive AMOXICILLIN 500 MG CAPS 2 po BID x 10 days AMOXICILLIN 500 MG CAPS 824744 AMOXICILLIN Inactive PENICILLIN V POTASSIUM 500 MG TABS 1 pill by mouth three times daily PENICILLIN V POTASSIUM 500 MG TABS 010891 PENICILLIN V POTASSIUM Inactive Immunizations Vaccine Administration [...] Fluvirin, Fluarix, Agriflu(>=18 yo)) Fluzone (>3 yrs.) [[id number]] Influenza, seasonal, injectable pneumococcal immunization administered Pneumovax [...] HGBA1C - Chemistry sodium, serum 130 mmol/L 156-306 0701/06/09 potassium, serum 4.0 mmol/L 3.5-5.2 chloride, serum 92 mmol/L 98-107 carbon dioxide, venous blood 22.1 mmol/L 21.0-32.0 blood glucose 60 mg/dL 65-110 calcium, serum 9.5 mg/dL 8.5-10.1 urea nitrogen, blood 14 mg/dL 7-18 creatinine, serum 1.30 mg/dL 0.60-1.30 hemoglobin A1C, blood, as % of total hemoglobin 6.0 % 4.3-6.0 sodium, serum 131 mmol/L 765-186 4742/12/30 potassium, serum 5.0 mmol/L 3.5-5.2 chloride, serum [...] 6.0 mg/dL 2.6-7.2 sodium, serum 130 mmol/L 096-318 3540/05/01 potassium, serum 5.2 mmol/L 3.5-5.2 chloride, serum [...] 0.40 mg/dL 0.00-1.00 cholesterol, serum 151 mg/dL 204-311 8145/05/01 triglyceride, serum, fasting 356 mg/dL 30-200 HDL [...] Panel - Chemistry sodium, serum 127 mmol/L 891-288 9591/10/27 potassium, serum 4.1 mmol/L 3.5-5.2 chloride, serum [...] BA - Chemistry sodium, serum 126 mmol/L 969-667 6404/02/26 potassium, serum 4.8 mmol/L 3.5-5.2 chloride, serum [...] mg/dL Encounters Code Encounter Date Provider Facility CPT-87131 Level 3 Est. Patient 10:09:22 VERIFICATION ENGINEER Alina Castaneda MD PhD [facility] CPT-83723 Level 3 Est. Patient 14:36:26 [facility] CPT-95301 Level 3 Est. Patient 13:34:47 VERIFICATION ENGINEER Alina Castaneda MD PhD [facility] CPT-20766 Level 3 Est. Patient 19:52:08 VERIFICATION ENGINEER Alina Castaneda MD [facility] CPT-31646 Level 3 Est. Patient 10:01:51 VERIFICATION ENGINEER Marvel Charles [facility] CPT-37640 Level 3 Est. Patient 21:54:06 CDT Vanessa Hickey MD [facility]-56984 Level 3 Est. Patient 08:54:46 CDT Alina Castaneda MD PhD [facility] CPT-96519 Level 3 Est. Patient 09:32:11 CDT Marvel Gurdeepajayestela [facility]-67300 Level 3 Est. Patient 12:02:49 CDT Alina Castaneda MD [facility]-39488 Level 3 Est. Patient 19:17:33 CDT Alina Castaneda MD [facility]43282 Level 3 Est. Patient 13:19:10 CDT Marvel Gurdeepajayestela [facility]-68472 Level 3 Est. Patient 08:20:05 CDT Alina Castaneda MD [facility]-90044 Level 3 Est. Patient 15:17:18 CDT Alina Castaneda MD [facility]88449 Level 3 Est. Patient 14:25:36 VERIFICATION ENGINEER Marvel Charles [facility]-19344 Level 3 Est. Patient 10:09:15 VERIFICATION ENGINEER Marvel Charles [facility]-23615 Level 3 Est. Patient 21:28:43 CDT Alina Castaneda MD [facility]-18752 Level 3 Est. Patient 15:20:11 CDT Marvel Araceli [facility]-47564 Level 4 Est. Patient 19:08:12 CDT Alina Castaneda MD [facility]87339 Level 3 Est. Patient 15:06:39 CDT Brooksjohn Charles [facility]-81439 Level 4 Est. Patient 17:48:15 CDT Alina Castaneda MD [facility]15247 Level 3 Est. Patient 14:53:49 CDT Alina Castaneda MD [facility]17579 Level 3 Est. Patient 09:35:16 CDT Alina Castaneda MD [facility]-29634 Level 3 Est. Patient 12:23:22 CDT Alina Castaneda MD [facility]-39151 Level 3 Est. Patient 16:19:15 CDT Alina Castaneda MD [facility]32492 Level 3 Est. Patient 21:39:56 VERIFICATION ENGINEER Alina Castaneda MD [facility]-73206 Level 4 Est. Patient 14:12:56 VERIFICATION ENGINEER Alina Castaneda MD [facility]-25508 Level 2 Est. Patient 15:34:57 VERIFICATION ENGINEER Alina Castaneda MD [facility]-92109 Level 3 Est. Patient 12:17:04 VERIFICATION ENGINEER Alina Castaneda MD [facility]-06307 Level 3 Est. Patient 09:18:18 VERIFICATION ENGINEER Marvel Charles [facility]-10859 Level 2 Est. Patient 21:50:24 CDT Alina Castaneda MD [facility]-01127 Level 3 Est. Patient 09:17:28 CDT Marvel Charles [facility]-69969 Level 4 Est. Patient 18:54:02 CDT Alina Castaneda MD [facility]11140 Level 3 Est. Patient 10:47:10 CDT Alina Castaneda MD [facility]-10816 Level 3 Est. Patient 09:22:20 CDT Marvel Charles [facility]-37239 Level 3 Est. Patient 16:39:43 CDT Marvel Charles [facility]-07241 Level 3 Est. Patient 16:05:16 CDT Alina Castaneda MD [facility] CPT-59646 Level 3 Est. Patient 00:29:15 CDT Alina Castaneda MD [facility] CPT-65016 Level 3 Est. Patient 10:49:22 VERIFICATION ENGINEER Brooksnivia Thurstonestela [facility] CPT-52896 Level 3 Est. Patient 21:30:19 VERIFICATION ENGINEER Alina Castaneda MD [facility] CPT-76786 Level 4 Est. Patient 17:04:11 VERIFICATION ENGINEER [facility] CPT-25740 Level 3 Est. Patient 15:34:[address] [facility] Level 2 Est. Patient 12:51:58 VERIFICATION ENGINEER Alina Castaneda MD [facility] CPT-34144 Level 3 Est. Patient 13:20:01 VERIFICATION ENGINEER Alina Castaneda MD [facility] CPT-62779 Level 3 Est. Patient 09:23:35 CDT Alina Castaneda MD [facility] Procedures Code Procedure Name Date Entry Date Standard Description CPT-35170 Bladder Scan 21:54:06 CDT CPT-G0008 Administration of Influenza Virus Vaccine 13:05:26 CDT CPT-99016 Fluzone Quadrivalent Intramuscular Suspension 0.5 ML 13: 05:26 CDT CPT-80823 Administration single or combination vaccine inc oral 11 :49:51 CDT CPT-11736 Pneumovax 11:49:51 CDT CPT-47079 Ribs unilateral 2V 12:37:22 VERIFICATION ENGINEER CPT-92316 Chest 2V Frontal and Lat 17:15:26 CDT CPT-73417 Abx/Therapy Injection 18:54:02 CDT CPT-J0696 Rocephin 1000 mg (Ceftriaxone) 16:00:32 CDT CPT-49560 Chest 2V Frontal and Lat 15:26:45 CDT CPT-47780 Chest 2V Frontal and Lat 10:23:27 CDT CPT-35272 Venipuncture Draw Fee 10:11:00 CDT CPT-19280 Administration single or combination vaccine inc oral 11 :56:38 CDT CPT-89269 Influenza split virus > age 3 11:56:38 CDT CPT-52382 Venipuncture Draw Fee 08:49:54 VERIFICATION ENGINEER CPT-48425 EKG Trac and Interp 17:54:19 VERIFICATION ENGINEER
--- OUTSIDE RECORDS SUMMARY | 2018-07-02 20:22 | XMS REPORT | Clinical Summary ---
Author Author Admin, TERELL Organization [facility] Address Unknown Phone Allergies, Adverse [...] MELLITUS, TYPE II, UNCONTROLLED 250.02 Resolved Marvel MARROQUNI Diabetes mellitus without mention of complication , [...] with lunch and suppetr. INSULIN LISPRO (HUMAN) 07756572998 Active Marvel Mackenzieglestela [employer]ES Active LEVEMIR 100 UNIT/ML SOLN Take 70 u at 7-8pm INSULIN DETEMIR 51991100453 Active Marvel Mackenzieglari [employer] Active BD INSULIN SYRINGE 28G X 1/2" 1 ML MISC 1 four times per day INSULIN SYRINGE-NEEDLE U-100 05612117468 Active Alina Castaneda MD PhD Active CYCLOBENZAPRINE HCL 10 MG TABS 1 tablet by mouth three times daily, scheduled CYCLOBENZAPRINE HCL 61219913720 Active Alina Castaneda MD PhD Active TOLTERODINE TARTRATE 2 MG TABS 1 pill twice daily, for bladder TOLTERODINE TARTRATE 92642314625 Active Alina Castaneda MD PhD Active DETROL LA 4 MG [id number] Take 1 tablet by mouth daily TOLTERODINE TARTRATE 70141379881 No Longer Active Alina Castaneda MD PhD Active HYDROCODONE-ACETAMINOPHEN 5-325 MG TABS 2 tabs by mouth three times daily as needed for pain HYDROCODONE-ACETAMINOPHEN 51575916396 Active Alina Castaneda MD PhD Active TERESE CONTOUR TEST STRP monitor blood sugars 3x/day GLUCOSE BLOOD 72095980519 No Longer Active Alina Castaneda MD PhD Active EQL TRUETEST TEST STRP Test blood sugar TID GLUCOSE BLOOD 52238060698 No Longer Active Alina Castaneda MD PhD Active FLUTICASONE PROPIONATE 50 MCG/ACT SUSP 2 sprays each nostril qDay x 30 days FLUTICASONE PROPIONATE 20485829174 No Longer Active Alina Castaneda MD PhD Active IBUPROFEN 200 MG TABS 1 Q 6 hr. PRN IBUPROFEN 88986827409 No Longer Active Alina Castaneda MD PhD Active NIACIN ER 500 MG CR-TABS 4 qHS (for triglycerides) NIACIN 58594500691 No Longer Active Alina Castaneda MD PhD Active TRUETEST TEST STRP check sugars 4x/day GLUCOSE BLOOD 64170750715 Active Alina Castaneda MD PhD Active ALFUZOSIN HCL ER 10 MG [id number] 1 tablet daily ALFUZOSIN HCL 71257472977 Active Vanessa Hickey MD Active CLONAZEPAM 1 MG TABS 1 pill by mouth three times daily CLONAZEPAM 76366004665 Active Alina Castaneda MD PhD Active LOVAZA 1 GM CAPS 4 daily (for triglycerides) [id number] ETHYL ESTERS 96201598176 Active Alina Castaneda MD PhD Active SAPHRIS 5 MG SUBL by mouth twice a day ASENAPINE MALEATE 32279636767 No Longer Active Marvel MARROQUIN Active ACETAMINOPHEN 500 MG TABS 2 Q 6 hr. PRN ACETAMINOPHEN 47140069166 No Longer Active Mallashondanivia Ziglari [employer] Active VERAPAMIL HCL ER 120 MG [id number] 1 pill by mouth twice a day, for headache prevention/control VERAPAMIL HCL 57006127641 Active Alina Castaneda MD PhD Active ORPHENADRINE CITRATE ER 100 MG [id number] 1 every 12 hr. as needed ORPHENADRINE CITRATE 08702108297 No Longer Active Alina Castaneda MD PhD Active NIACIN CR 500 MG CR-TABS 2 qHS NIACIN 00546754482 No Longer Active Alina Castaneda MD PhD Active AMOXICILLIN 500 MG CAPS 2 po BID x 10 days AMOXICILLIN 16702301154 No Longer Active Alina Castaneda MD PhD Active ZYPREXA 7.5 MG TABS 1 at HS OLANZAPINE 35752005205 Active Alina Castaneda MD PhD Active THIOTHIXENE 5 MG CAPS by mouth twice a day THIOTHIXENE 25455636429 Active Alina Castaneda MD PhD Active HYDROCODONE-ACETAMINOPHEN 7.5-325 MG TABS 1 four times a day as needed for pain HYDROCODONE-ACETAMINOPHEN 32499321678 No Longer Active Alina Castaneda MD PhD Active METFORMIN HCL ER 500 MG [id number] Take three tablets by mouth everyday METFORMIN HCL 30607072231 Active Alina Castaneda MD PhD Active DOXEPIN HCL 10 MG CAPS Take 1 tablet by mouth daily DOXEPIN HCL 25809749571 No Longer Active Salina ROJAS Active NAVANE 10 MG CAPS 1/2 tablet twice a day THIOTHIXENE No Longer Active Salina ROBBINSA Active CYCLOBENZAPRINE HCL 10 MG TABS 1/2 tablet by mouth every 8 hours as needed for muscle spasms CYCLOBENZAPRINE HCL 90008441271 No Longer Active Alina Castaneda MD PhD Active BACTROBAN 2 % CREAM apply to ear and nose twice daily MUPIROCIN CALCIUM 45275115928 No Longer Active Alina Castaneda MD PhD Active HYDROCODONE-ACETAMINOPHEN 5-325 MG TABS take one tablet by mouth every four hours as needed for pain HYDROCODONE-ACETAMINOPHEN 30172731101 No Longer Active Alina Castaneda MD PhD Active ZOLPIDEM TARTRATE 10 MG TABS take at bedtime ZOLPIDEM TARTRATE 79563228163 Active Alina Castaneda MD PhD Active ZYPREXA 5 MG TABS take one tablet by mouth every evening OLANZAPINE 39106566239 No Longer Active Alina Castaneda MD PhD Active ALBUTEROL SULFATE 0.083 % NEBU SOLN one vial per nebulizer TID and PRN cough/ soa ALBUTEROL SULFATE 67422930966 No Longer Active Alina Castaneda MD PhD Active GUAIFENESIN 600 MG [id number]-QLK 1 tablet by mouth twice daily if needed for cough GUAIFENESIN 15032639415 No Longer Active Marvel MENDOZAP Active AZITHROMYCIN 500 MG SOLR 1 po q day AZITHROMYCIN 98828279253 No Longer Active Alina Castaneda MD PhD Active METOPROLOL SUCCINATE 100 MG [id number] 1 by mouth daily for blood pressure METOPROLOL SUCCINATE 62824047926 Active Alina Castaneda MD PhD Active PROMETHAZINE-CODEINE 6.25-10 MG/5ML SYRP 1 tsp po q 6 hours prn cough PROMETHAZINE-CODEINE 54170929702 No Longer Active Alina Castaneda MD PhD Active CEFDINIR 300 MG CAPS by mouth twice a day CEFDINIR 09133061356 No Longer Active Alina Castaneda MD PhD Active METFORMIN HCL 500 MG [id number] Take 3 tablets by mouth everyday METFORMIN HCL 14563285142 No Longer Active Alina Castaneda MD PhD Active LEVEMIR 100 UNIT/ML SOLN 90 units SQ qHS INSULIN DETEMIR 12583843305 No Longer Active Marvel MARROQUIN Active TOPROL XL 100 MG [id number] 1 @ HS METOPROLOL SUCCINATE 65066673681 No Longer Active Marvel MARROQUIN Active ALLOPURINOL 300 MG TABS Take one by mouth daily ALLOPURINOL 60900982195 Active Alina Castaneda MD PhD Active ZYPREXA 10 MG TABS Take one by mouth daily OLANZAPINE 13305138319 No Longer Active Alina Castaneda MD PhD Active NOVOLOG 100 UNIT/ML SOLN 40 units with every meal INSULIN ASPART 04473611343 No Longer Active Alina Castaneda MD PhD Active VERAPAMIL HCL CR 120 MG TAB CR 1 qPM VERAPAMIL HCL 80289009915 No Longer Active Salina Emely [facility] Active ZYPREXA 15 MG TABS Take 1 tablet by mouth daily OLANZAPINE 27918450692 No Longer Active Marvel AMRROQUIN Active LISINOPRIL 20 MG TABS 1 BID LISINOPRIL 35404449192 Active Mao Rodriguez MD Active ALBUTEROL SULFATE (2.5 MG/3ML) 0.083% NEBU 1 neb tid and prn cough ALBUTEROL SULFATE 62012474111 No Longer Active Alina Castaneda MD PhD Active FLUVOXAMINE MALEATE 100 MG TABS Take one (1) tablet by mouth am, 1/2 at noon, 1 pm FLUVOXAMINE MALEATE 79825538323 Active Alina Castaneda MD PhD Active TRAVATAN Z 0.004 % SOLN 1 gtt each eye daily TRAVOPROST 49395738641 Active Alina Mendez Active LANTUS 100 UNIT/ML SOLN 60 units sq q hs INSULIN GLARGINE 84856097616 No Longer Active Alina Mendez Active UROXATRAL 10 MG [id number] Take 1 tablet by mouth daily ALFUZOSIN HCL 60693647619 Active Tanya MARROQUIN Active ALBUTEROL SULFATE (2.5 MG/3ML) 0.083% NEBU 1 neb tid and prn cough ALBUTEROL SULFATE (2.5 MG/3ML) 0.083% NEBU 151668 ALBUTEROL SULFATE Inactive ZYPREXA 15 MG TABS Take 1 tablet by mouth daily ZYPREXA 15 MG TABS 683144 OLANZAPINE Inactive VERAPAMIL HCL CR 120 MG TAB CR 1 qPM VERAPAMIL HCL CR 120 MG TAB CR VERAPAMIL HCL Inactive ZYPREXA 10 MG TABS Take one by mouth daily ZYPREXA 10 MG TABS 841901 OLANZAPINE Inactive TOPROL XL 100 MG [id number] 1 @ HS TOPROL XL 100 MG [id number] METOPROLOL SUCCINATE Inactive LEVEMIR 100 UNIT/ML SOLN 90 units SQ qHS LEVEMIR 100 UNIT/ML SOLN INSULIN DETEMIR Inactive PROMETHAZINE-CODEINE 6.25-10 MG/5ML SYRP 1 tsp po q 6 hours prn cough PROMETHAZINE-CODEINE 6.25-10 MG/5ML SYRP 874259 PROMETHAZINE- CODEINE Inactive GUAIFENESIN 600 MG AM36I-RIE 1 tablet by mouth twice daily if needed for cough GUAIFENESIN 600 MG [id number]-YNM GUAIFENESIN Inactive ALBUTEROL SULFATE 0.083 % NEBU SOLN one vial per nebulizer TID and PRN cough/ soa ALBUTEROL SULFATE 0.083 % NEBU SOLN 095726 ALBUTEROL SULFATE Inactive ZYPREXA 5 MG TABS take one tablet by mouth every evening ZYPREXA 5 MG TABS 421237 OLANZAPINE Inactive HYDROCODONE-ACETAMINOPHEN 5-325 MG TABS take one tablet by mouth every four hours as needed for pain HYDROCODONE-ACETAMINOPHEN 5-325 MG TABS 204582 HYDROCODONE-ACETAMINOPHEN Inactive BACTROBAN 2 % CREAM apply to ear and nose twice daily BACTROBAN 2 % CREAM 744653 MUPIROCIN CALCIUM Inactive CYCLOBENZAPRINE HCL 10 MG TABS 1/2 tablet by mouth every 8 hours as needed for muscle spasms CYCLOBENZAPRINE HCL 10 MG TABS 996189 CYCLOBENZAPRINE HCL Inactive NAVANE 10 MG CAPS 1/2 tablet twice a day NAVANE 10 MG CAPS THIOTHIXENE Inactive DOXEPIN HCL 10 MG CAPS Take 1 tablet by mouth daily DOXEPIN HCL 10 MG CAPS 5274906 DOXEPIN HCL Inactive HYDROCODONE-ACETAMINOPHEN 7.5-325 MG TABS 1 four times a day as needed for pain HYDROCODONE-ACETAMINOPHEN 7.5-325 MG TABS 325192 HYDROCODONE-ACETAMINOPHEN Inactive NIACIN CR 500 MG CR-TABS 2 qHS NIACIN CR 500 MG CR- TABS NIACIN Inactive ORPHENADRINE CITRATE ER 100 MG [id number] 1 every 12 hr. as needed ORPHENADRINE CITRATE ER 100 MG [id number]-QJD ORPHENADRINE CITRATE Inactive ACETAMINOPHEN 500 MG TABS 2 Q 6 hr. PRN ACETAMINOPHEN 500 MG TABS 530724 ACETAMINOPHEN Inactive SAPHRIS 5 MG SUBL by mouth twice a day SAPHRIS 5 MG SUBL ASENAPINE MALEATE Inactive NIACIN ER 500 MG CR-TABS 4 qHS (for triglycerides) NIACIN ER 500 MG CR-TABS NIACIN Inactive IBUPROFEN 200 MG TABS 1 Q 6 hr. PRN IBUPROFEN 200 MG TABS 832728 IBUPROFEN Inactive FLUTICASONE PROPIONATE 50 MCG/ACT SUSP 2 sprays each nostril qDay x 30 days FLUTICASONE PROPIONATE 50 MCG/ACT SUSP 070586 FLUTICASONE PROPIONATE Inactive EQL TRUETEST TEST STRP Test blood sugar TID EQL TRUETEST TEST STRP GLUCOSE BLOOD Inactive TERESE CONTOUR TEST STRP monitor blood sugars 3x/day TERESE CONTOUR TEST STRP GLUCOSE BLOOD Inactive DETROL LA 4 MG [id number] Take 1 tablet by mouth daily DETROL LA 4 MG [id number] TOLTERODINE TARTRATE Inactive CEFDINIR 300 MG CAPS by mouth twice a day CEFDINIR 300 MG CAPS 544469 CEFDINIR Inactive AZITHROMYCIN 500 MG SOLR 1 po q day AZITHROMYCIN 500 MG SOLR 041485 AZITHROMYCIN Inactive AMOXICILLIN 500 MG CAPS 2 po BID x 10 days AMOXICILLIN 500 MG CAPS 905759 AMOXICILLIN Inactive Immunizations Vaccine Administration Date Value [...] Fluvirin, Fluarix, Agriflu(>=18 yo)) Fluzone (>3 yrs.) [[id number]] Influenza, seasonal, injectable pneumococcal immunization administered Pneumovax [...] HGBA1C - Chemistry sodium, serum 130 mmol/L 658-469 2488/06/09 potassium, serum 4.0 mmol/L 3.5-5.2 chloride, serum [...] acid - Chemistry sodium, serum 130 mmol/L 336-922 1227/05/01 potassium, serum 5.2 mmol/L 3.5-5.2 chloride, serum [...] 0.40 mg/dL 0.00-1.00 cholesterol, serum 151 mg/dL [phone]/05/01 triglyceride, serum, fasting 356 mg/dL 30-200 HDL [...] HGBA1C - Chemistry sodium, serum 126 mmol/L 932-936 3657/02/26 potassium, serum 4.8 mmol/L 3.5-5.2 chloride, serum [...] DIRECT - Chemistry cholesterol, serum 158 mg/dL 358-068 3736/07/11 triglyceride, serum, fasting 489 mg/dL 30-200 HDL [...] mg/dL Encounters Code Encounter Date Provider Facility CPT-89814 Level 3 Est. Patient 13:19:10 CDT [facility] [place] CPT-64094 Level 3 Est. Patient 08:20:05 CDT Alina Castaneda MD [facility] CPT-59542 Level 3 Est. Patient 15:17:18 CDT Alina Castaneda MD PhD [facility] CPT-01344 Level 3 Est. Patient 14:25:36 SEARCH ENGINE MARKETING MANAGER [facility] [place] CPT-26212 Level 3 Est. Patient 10:09:15 SEARCH ENGINE MARKETING MANAGER [facility] [place] CPT-93867 Level 3 Est. Patient 21:28:43 CDT Alina Castaneda MD PhD [facility] CPT-87740 Level 3 Est. Patient 15:20:11 CDT Marvel Charles [facility] CPT-13466 Level 4 Est. Patient 19:08:12 CDT Alina Castaneda MD [facility]-19912 Level 3 Est. [facility]06[facility] [place]30244 Level 4 Est. Patient 17:48:15 CDT Alina Castaneda MD [facility]-84125 Level 3 Est. Patient 14:53:49 CDT Alina Castaneda MD [facility]-69499 Level 3 Est. Patient 09:35:16 CDT Alina Castaneda MD [facility]-12379 Level 3 Est. Patient 12:23:22 CDT Alina Castaneda MD [facility]-13206 Level 3 Est. Patient 16:19:15 CDT Alina Castaneda MD [facility]-69493 Level 3 Est. Patient 21:39:56 SEARCH ENGINE MARKETING MANAGER Alina Castaneda MD [facility]-36132 Level 4 Est. Patient 14:12:56 SEARCH ENGINE MARKETING MANAGER Alina Castaneda MD [facility]-20885 Level 2 Est. Patient 15:34:57 SEARCH ENGINE MARKETING MANAGER Alina Castaneda MD [facility]-40563 Level 3 Est. Patient 12:17:04 SEARCH ENGINE MARKETING MANAGER Alina Castaneda MD [facility]-56491 Level 3 Est. Patient 09:18:18 SEARCH ENGINE MARKETING MANAGER Marvel Charles [facility] [place]-07596 Level 2 Est. Patient 21:50:24 CDT Alina Castaneda MD [facility]-65889 Level 3 Est. Patient 09:17:28 CDT Marvel Araceli [facility] CPT-21729 Level 4 Est. Patient 18:54:02 CDT Alina Castaneda MD [facility] CPT-12797 Level 3 Est. Patient 10:47:10 CDT Alina Castaneda MD [facility] CPT-14713 Level 3 Est. Patient 09:22:20 CDT Marvel Thurstonestela [facility] CPT-47195 Level 3 Est. Patient 16:39:43 CDT Marvel Thurstonestela [facility] CPT-38418 Level 3 Est. Patient 16:05:16 CDT Alina Castaneda MD [facility] CPT-09908 Level 3 Est. Patient 00:29:15 CDT Alina Castaneda MD [facility] CPT-50013 Level 3 Est. Patient 10:49:22 SEARCH ENGINE MARKETING MANAGER Brookslashondanivia Araceli [facility] CPT-01616 Level 3 Est. Patient 21:30:19 SEARCH ENGINE MARKETING MANAGER Alina Castaneda MD [facility] CPT-12425 Level 4 Est. Patient 17:04:11 SEARCH ENGINE MARKETING MANAGER Marvel Araceli [facility] CPT-62522 Level 3 Est. Patient 15:34:11 SEARCH ENGINE MARKETING MANAGER Brooksjohn Charles [facility] CPT-00101 Level 2 Est. Patient 12:51:58 SEARCH ENGINE MARKETING MANAGER Alina Castaneda MD [facility] CPT-93854 Level 3 Est. Patient 13:20:01 SEARCH ENGINE MARKETING MANAGER Alina Castaneda MD [facility] CPT-37713 Level 3 Est. Patient 09:23:35 CDT Alina Castaneda MD [facility] Procedures Code Procedure Name Date Entry Date Standard Description CPT-98651 Administration single or combination vaccine inc oral 11 :49:51 CDT CPT-26775 Pneumovax 11:49:51 CDT CPT-28343 Ribs unilateral 2V 12:37:22 SEARCH ENGINE MARKETING MANAGER CPT-77149 Chest 2V Frontal and Lat 17:15:26 CDT CPT-88950 Abx/Therapy Injection 18:54:02 CDT CPT-J0696 Rocephin 1000 mg (Ceftriaxone) 16:00:32 CDT CPT-41683 Chest 2V Frontal and Lat 15:26:45 CDT CPT-57129 Chest 2V Frontal and Lat 10:23:27 CDT CPT-96854 Venipuncture Draw Fee 10:11:00 CDT CPT-69051 Administration single or combination vaccine inc oral 11 :56:38 CDT CPT-43981 Influenza split virus > age 3 11:56:38 CDT CPT-01191 Venipuncture Draw Fee 08:49:54 SEARCH ENGINE MARKETING MANAGER CPT-61288 EKG Trac and Interp 17:54:19 SEARCH ENGINE MARKETING MANAGER
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
--- OUTSIDE RECORDS SUMMARY | 2018-07-02 20:25 | XMS REPORT | Clinical Summary ---
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 Active Alina Castaneda MD PhD Recurrent isolated sleep paralysis SPECIAL SCREENING FOR MALIGNANT NEOPLASM OF PROSTATE V76.44 Resolved Alina Castaneda MD PhD Screening for malignant neoplasms of prostate Hypoglycemia 251.2 Active Zaineh 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 LOPEZ Hypoglycemia, unspecified Diabetes mellitus, type II 250.00 Active Maliheh Ziglari CASH APPLICATIONS REPRESENTATIVE Diabetes mellitus without mention of complication, type [...] by mouth nightly, for pain MORPHINE SULFATE 20176403262 Active Rhett Luther DO Active LATUDA 80 MG TABS 1 tab by mouth every evening LURASIDONE HCL 19047456569 Active Alina Castaneda MD PhD Active UROXATRAL 10 MG [id number] Take 1 tablet by mouth daily ALFUZOSIN HCL 34691985790 No Longer Active Alina Castaneda MD PhD Active THIOTHIXENE 5 MG CAPS by mouth twice a day THIOTHIXENE 75739582365 No Longer Active Alina Castaneda MD PhD Active ZYPREXA 7.5 MG TABS 1 at HS OLANZAPINE 16930798145 No Longer Active Alina Castaneda MD PhD Active HUMALOG 100 UNIT/ML SOLN Take 20 units with breakfast, 10u with lunch and suppetr. INSULIN LISPRO (HUMAN) 63342169751 Active Maliheh Ziglari CASH APPLICATIONS REPRESENTATIVE Active LEVEMIR 100 UNIT/ML SOLN Take 70 u at 7-8pm INSULIN DETEMIR 71436327459 Active Maliheh Ziglari CASH APPLICATIONS REPRESENTATIVE Active BD INSULIN SYRINGE 28G X 1/2" 1 ML MISC 1 four times per day INSULIN SYRINGE-NEEDLE U-100 19186500124 Active Maliheh Ziglari CASH APPLICATIONS REPRESENTATIVE Active CYCLOBENZAPRINE HCL 10 MG TABS 1 tablet by mouth three times daily, scheduled CYCLOBENZAPRINE HCL 61169211094 Active Alina Castaneda MD PhD Active TOLTERODINE TARTRATE 2 MG TABS 1 pill twice daily, for bladder TOLTERODINE TARTRATE 44580195823 Active Alina Castaneda MD PhD Active DETROL LA 4 MG [id number] Take 1 tablet by mouth daily TOLTERODINE TARTRATE 34623838951 No Longer Active Alina Castaneda MD PhD Active HYDROCODONE-ACETAMINOPHEN 5-325 MG TABS 2 tabs by mouth three times daily as needed for pain HYDROCODONE-ACETAMINOPHEN 85138600651 Active Rhett W Ashkan DO Active TERSEE CONTOUR TEST STRP monitor blood sugars 3x/day GLUCOSE BLOOD 40117168550 No Longer Active Alina Castaneda MD PhD Active EQL TRUETEST TEST STRP Test blood sugar TID GLUCOSE BLOOD 06155597979 No Longer Active Alina Castaneda MD PhD Active FLUTICASONE PROPIONATE 50 MCG/ACT SUSP 2 sprays each nostril qDay x 30 days FLUTICASONE PROPIONATE 11661631607 No Longer Active Alina Castaneda MD PhD Active IBUPROFEN 200 MG TABS 1 Q 6 hr. PRN IBUPROFEN 88765448155 No Longer Active Alina Castaneda MD PhD Active NIACIN ER 500 MG CR-TABS 4 qHS (for triglycerides) NIACIN 23312342666 No Longer Active Alina Castaneda MD PhD Active TRUETEST TEST STRP check sugars 4x/day GLUCOSE BLOOD 02647494684 Active Marvel MARROQUIN Active ALFUZOSIN HCL ER 10 MG [id number] 1 tablet daily ALFUZOSIN HCL 21834706914 Active Vanessa Hickey MD Active CLONAZEPAM 1 MG TABS 1 pill by mouth three times daily CLONAZEPAM 13657265747 Active Alina Castaneda MD PhD Active LOVAZA 1 GM CAPS 4 daily (for triglycerides) [id number]-3-[id number] ETHYL ESTERS 18813395613 Active Alina Castaneda MD PhD Active SAPHRIS 5 MG SUBL by mouth twice a day ASENAPINE MALEATE 68277452622 No Longer Active Marvel MENDOZAP Active ACETAMINOPHEN 500 MG TABS 2 Q 6 hr. PRN ACETAMINOPHEN 87667998605 No Longer Active Marvel MENDOZAP Active VERAPAMIL HCL ER 120 MG [id number] 1 pill by mouth twice a day, for headache prevention/control VERAPAMIL HCL 81497982499 Active Alina Castaneda MD PhD Active ORPHENADRINE CITRATE ER 100 MG HG38M-WQW 1 every 12 hr. as needed ORPHENADRINE CITRATE 33349039418 No Longer Active Alina Castaneda MD PhD Active NIACIN CR 500 MG CR-TABS 2 qHS NIACIN 31978499401 No Longer Active Alina Castaneda MD PhD Active AMOXICILLIN 500 MG CAPS 2 po BID x 10 days AMOXICILLIN 61465609119 No Longer Active Alina Castaneda MD PhD Active HYDROCODONE-ACETAMINOPHEN 7.5-325 MG TABS 1 four times a day as needed for pain HYDROCODONE-ACETAMINOPHEN 19854931491 No Longer Active Alina Castaneda MD PhD Active METFORMIN HCL ER 500 MG OP40B-OBZ Take three tablets by mouth everyday METFORMIN HCL 49751002826 Active Alina Castaneda MD PhD Active DOXEPIN HCL 10 MG CAPS Take 1 tablet by mouth daily DOXEPIN HCL 22839997287 No Longer Active Salina Han [facility] Active NAVANE 10 MG CAPS 1/2 tablet twice a day THIOTHIXENE No Longer Active Salina Han [facility] Active CYCLOBENZAPRINE HCL 10 MG TABS 1/2 tablet by mouth every 8 hours as needed for muscle spasms CYCLOBENZAPRINE HCL 74364650247 No Longer Active Alina Castaneda MD PhD Active BACTROBAN 2 % CREAM apply to ear and nose twice daily MUPIROCIN CALCIUM 57971954169 No Longer Active Alina Castaneda MD PhD Active HYDROCODONE-ACETAMINOPHEN 5-325 MG TABS take one tablet by mouth every four hours as needed for pain HYDROCODONE-ACETAMINOPHEN 60901720025 No Longer Active Alina Castaneda MD PhD Active ZOLPIDEM TARTRATE 10 MG TABS take at bedtime ZOLPIDEM TARTRATE 20966358970 Active Alina Castaneda MD PhD Active ZYPREXA 5 MG TABS take one tablet by mouth every evening OLANZAPINE 92484946053 No Longer Active Alina Castaneda MD PhD Active ALBUTEROL SULFATE 0.083 % NEBU SOLN one vial per nebulizer TID and PRN cough/ soa ALBUTEROL SULFATE 38882499044 No Longer Active Alina Castaneda MD PhD Active GUAIFENESIN 600 MG RT93A-ZEQ 1 tablet by mouth twice daily if needed for cough GUAIFENESIN 55460927341 No Longer Active Marvel MARROQUIN Active AZITHROMYCIN 500 MG SOLR 1 po q day AZITHROMYCIN 54018023106 No Longer Active Alina Castaneda MD PhD Active METOPROLOL SUCCINATE 100 MG SD04N-XAF 1 by mouth daily for blood pressure METOPROLOL SUCCINATE 52010757378 Active Alina Castaneda MD PhD Active PROMETHAZINE-CODEINE 6.25-10 MG/5ML SYRP 1 tsp po q 6 hours prn cough PROMETHAZINE-CODEINE 31045035118 No Longer Active Alina Castaneda MD PhD Active CEFDINIR 300 MG CAPS by mouth twice a day CEFDINIR 69034966258 No Longer Active Alina Castaneda MD PhD Active METFORMIN HCL 500 MG HP96X-VQE Take 3 tablets by mouth everyday METFORMIN HCL 59707275067 No Longer Active Alina Castaneda MD PhD Active LEVEMIR 100 UNIT/ML SOLN 90 units SQ qHS INSULIN DETEMIR 26543542789 No Longer Active Marvel MARROQUIN Active TOPROL XL 100 MG UU41T-DAP 1 @ HS METOPROLOL SUCCINATE 05922750934 No Longer Active Marvel MARROQUIN Active ALLOPURINOL 300 MG TABS Take one by mouth daily ALLOPURINOL 74591348276 Active Alina Castaneda MD PhD Active ZYPREXA 10 MG TABS Take one by mouth daily OLANZAPINE 60620997794 No Longer Active Alina Castaneda MD PhD Active NOVOLOG 100 UNIT/ML SOLN 40 units with every meal INSULIN ASPART 39673898546 No Longer Active Alina Castaneda MD PhD Active VERAPAMIL HCL CR 120 MG TAB CR 1 qPM VERAPAMIL HCL 52339376939 No Longer Active Salina Han [facility] Active ZYPREXA 15 MG TABS Take 1 tablet by mouth daily OLANZAPINE 85783494284 No Longer Active Marvel Charles CASH APPLICATIONS REPRESENTATIVE Active LISINOPRIL 20 MG TABS 1 BID LISINOPRIL 63085675053 Active Alina Castaneda MD PhD Active ALBUTEROL SULFATE (2.5 MG/3ML) 0.083% NEBU 1 neb tid and prn cough ALBUTEROL SULFATE 30230729987 No Longer Active Alina Castaneda MD PhD Active FLUVOXAMINE MALEATE 100 MG TABS Take one (1) tablet by mouth am, 05/25 at noon, 1 pm FLUVOXAMINE MALEATE 11840510632 Active Alina Castaneda MD PhD Active TRAVATAN Z 0.004 % SOLN 1 gtt each eye daily TRAVOPROST 64133686761 Active CRYSTAL Suarez Active LANTUS 100 UNIT/ML SOLN 60 units sq q hs INSULIN GLARGINE 43956476649 No Longer Active CRYSTAL Suarez Active ALBUTEROL SULFATE (2.5 MG/3ML) 0.083% NEBU 1 neb tid and prn cough ALBUTEROL SULFATE (2.5 MG/3ML) 0.083% NEBU 671239 ALBUTEROL SULFATE Inactive ZYPREXA 15 MG TABS Take 1 tablet by mouth daily ZYPREXA 15 MG TABS 583357 OLANZAPINE Inactive VERAPAMIL HCL CR 120 MG TAB CR 1 qPM VERAPAMIL HCL CR 120 MG TAB CR VERAPAMIL HCL Inactive ZYPREXA 10 MG TABS Take one by mouth daily ZYPREXA 10 MG TABS 710969 OLANZAPINE Inactive TOPROL XL 100 MG [id number] 1 @ HS TOPROL XL 100 MG AQ08A-YUV METOPROLOL SUCCINATE Inactive LEVEMIR 100 UNIT/ML SOLN 90 units SQ qHS LEVEMIR 100 UNIT/ML SOLN INSULIN DETEMIR Inactive PROMETHAZINE-CODEINE 6.25-10 MG/5ML SYRP 1 tsp po q 6 hours prn cough PROMETHAZINE-CODEINE 6.25-10 MG/5ML SYRP 757317 PROMETHAZINE- CODEINE Inactive GUAIFENESIN 600 MG EQ69F-XFC 1 tablet by mouth twice daily if needed for cough GUAIFENESIN 600 MG ON02A-LSN GUAIFENESIN Inactive ALBUTEROL SULFATE 0.083 % NEBU SOLN one vial per nebulizer TID and PRN cough/ soa ALBUTEROL SULFATE 0.083 % NEBU SOLN 151128 ALBUTEROL SULFATE Inactive ZYPREXA 5 MG TABS take one tablet by mouth every evening ZYPREXA 5 MG TABS 855126 OLANZAPINE Inactive HYDROCODONE-ACETAMINOPHEN 5-325 MG TABS take one tablet by mouth every four hours as needed for pain HYDROCODONE-ACETAMINOPHEN 5-325 MG TABS 464764 HYDROCODONE-ACETAMINOPHEN Inactive BACTROBAN 2 % CREAM apply to ear and nose twice daily BACTROBAN 2 % CREAM 503114 MUPIROCIN CALCIUM Inactive CYCLOBENZAPRINE HCL 10 MG TABS 1/2 tablet by mouth every 8 hours as needed for muscle spasms CYCLOBENZAPRINE HCL 10 MG TABS 288924 CYCLOBENZAPRINE HCL Inactive NAVANE 10 MG CAPS 1/2 tablet twice a day NAVANE 10 MG CAPS THIOTHIXENE Inactive DOXEPIN HCL 10 MG CAPS Take 1 tablet by mouth daily DOXEPIN HCL 10 MG CAPS 5369935 DOXEPIN HCL Inactive HYDROCODONE-ACETAMINOPHEN 7.5-325 MG TABS 1 four times a day as needed for pain HYDROCODONE-ACETAMINOPHEN 7.5-325 MG TABS 956432 HYDROCODONE-ACETAMINOPHEN Inactive NIACIN CR 500 MG CR-TABS 2 qHS NIACIN CR 500 MG CR- TABS NIACIN Inactive ORPHENADRINE CITRATE ER 100 MG [id number]-NPS 1 every 12 hr. as needed ORPHENADRINE CITRATE ER 100 MG [id number]-RDN ORPHENADRINE CITRATE Inactive ACETAMINOPHEN 500 MG TABS 2 Q 6 hr. PRN ACETAMINOPHEN 500 MG TABS 140611 ACETAMINOPHEN Inactive SAPHRIS 5 MG SUBL by mouth twice a day SAPHRIS 5 MG SUBL ASENAPINE MALEATE Inactive NIACIN ER 500 MG CR-TABS 4 qHS (for triglycerides) NIACIN ER 500 MG CR-TABS NIACIN Inactive IBUPROFEN 200 MG TABS 1 Q 6 hr. PRN IBUPROFEN 200 MG TABS 156322 IBUPROFEN Inactive FLUTICASONE PROPIONATE 50 MCG/ACT SUSP 2 sprays each nostril qDay x 30 days FLUTICASONE PROPIONATE 50 MCG/ACT SUSP 766304 FLUTICASONE PROPIONATE Inactive EQL TRUETEST TEST STRP Test blood sugar TID EQL TRUETEST TEST STRP GLUCOSE BLOOD Inactive TERESE CONTOUR TEST STRP monitor blood sugars 3x/day TERESE CONTOUR TEST STRP GLUCOSE BLOOD Inactive DETROL LA 4 MG [id number] Take 1 tablet by mouth daily DETROL LA 4 MG [id number] TOLTERODINE TARTRATE Inactive ZYPREXA 7.5 MG TABS 1 at HS ZYPREXA 7.5 MG TABS 278981 OLANZAPINE Inactive THIOTHIXENE 5 MG CAPS by mouth twice a day THIOTHIXENE 5 MG CAPS 494176 THIOTHIXENE Inactive UROXATRAL 10 MG OY99M-KWD Take 1 tablet by mouth daily UROXATRAL 10 MG QP93Y-AJO ALFUZOSIN HCL Inactive CEFDINIR 300 MG CAPS by mouth twice a day CEFDINIR 300 MG CAPS 665320 CEFDINIR Inactive AZITHROMYCIN 500 MG SOLR 1 po q day AZITHROMYCIN 500 MG SOLR 008272 AZITHROMYCIN Inactive AMOXICILLIN 500 MG CAPS 2 po BID x 10 days AMOXICILLIN 500 MG CAPS 391481 AMOXICILLIN Inactive Immunizations Vaccine Administration Date Value [...] Fluvirin, Fluarix, Agriflu(>=18 yo)) Fluzone (>3 yrs.) [[id number]] Influenza, seasonal, injectable pneumococcal immunization administered Pneumovax [...] HGBA1C - Chemistry sodium, serum 130 mmol/L 797-433 9413/06/09 potassium, serum 4.0 mmol/L 3.5-5.2 chloride, serum 92 mmol/L 98-107 carbon dioxide, venous blood 22.1 mmol/L 21.0-32.0 blood glucose 60 mg/dL 65-110 calcium, serum 9.5 mg/dL 8.5-10.1 urea nitrogen, blood 14 mg/dL 7-18 creatinine, serum 1.30 mg/dL 0.60-1.30 hemoglobin A1C, blood, as % of total hemoglobin 6.0 % 4.3-6.0 sodium, serum 131 mmol/L 724-800 3244/12/30 potassium, serum 5.0 mmol/L 3.5-5.2 chloride, serum [...] 6.0 mg/dL 2.6-7.2 sodium, serum 130 mmol/L 498-550 0653/05/01 potassium, serum 5.2 mmol/L 3.5-5.2 chloride, serum [...] 0.40 mg/dL 0.00-1.00 cholesterol, serum 151 mg/dL 927-973 1848/05/01 triglyceride, serum, fasting 356 mg/dL 30-200 HDL [...] Panel - Chemistry sodium, serum 127 mmol/L 210-125 7928/10/27 potassium, serum 4.1 mmol/L 3.5-5.2 chloride, serum [...] HGBA1C - Chemistry sodium, serum 126 mmol/L 466-869 2364/02/26 potassium, serum 4.8 mmol/L 3.5-5.2 chloride, serum [...] mg/dL Encounters Code Encounter Date Provider Facility CPT-31287 Level 3 Est. [facility] 10:01:[facility]PT-08454 Level 3 Est. Patient 21:54:06 CDT Vanessa Hickey MD [facility] CPT-13156 Level 3 Est. Patient 08:54:46 CDT Alina Castaneda MD PhD [facility] CPT-27751 Level 3 Est. Patient 09:32:11 CDT Marvel [facility] CPT-41909 Level 3 Est. Patient 12:02:49 CDT Alina Castaneda MD [facility]-50533 Level 3 Est. Patient 19:17:33 CDT Alina Castaneda MD [facility]-34896 Level 3 Est. [facility]19:[facility]-01905 Level 3 Est. Patient 08:20:05 CDT Alina Castaneda MD [facility]-26812 Level 3 Est. Patient 15:17:18 CDT Alina Castaneda MD [facility]-11217 Level 3 Est. Patient 14:25:36 [facility] Patient 10:09:15 [facility] Est[facility] Patient 21:28:43 CDT Alina Castaneda MD [facility]-19697 Level 3 Est. Patient 15:20:11 [facility] Level 4 Est. Patient 19:08:12 CDT Alina Castaneda MD [facility]-47357 Level 3 Est. [facility]:06:[facility]-44942 Level 4 Est. Patient 17:48:15 CDT Alina Castaneda MD [facility]-87691 Level 3 Est. Patient 14:53:49 CDT Alina Castaneda MD [facility]-81271 Level 3 Est. Patient 09:35:16 CDT Alina Castaneda MD [facility]-27513 Level 3 Est. Patient 12:23:22 CDT Alina Castaneda MD [facility]-48274 Level 3 Est. Patient 16:19:15 CDT Alina Castaneda MD [facility]-32799 Level 3 Est. Patient 21:39:56 CORN MILLER Alina Castaneda MD [facility]-50400 Level 4 Est. Patient 14:12:56 CORN MILLER Alina Castaneda MD [facility]-08123 Level 2 Est. Patient 15:34:57 CORN MILLER Alina Castaneda MD [facility]-64052 Level 3 Est. Patient 12:17:04 CORN MILLER Alina Castaneda MD [facility]-59009 Level 3 Est. Patient 09:18:18 CORN MILLER Marvel Charles [facility]-09862 Level 2 Est. Patient 21:50:24 CDT Alina Castaneda MD [facility]-84740 Level 3 Est. Patient 09:17:28 CDT Marvel Charles [facility]-03934 Level 4 Est. Patient 18:54:02 CDT Alina Castaneda MD [facility]-06001 Level 3 Est. Patient 10:47:10 CDT Alina Castaneda MD [facility]-99502 Level 3 Est. Patient 09:22:20 CDT Marvel Charles [facility]-92532 Level 3 Est. Patient 16:39:43 CDT Marvel Charles [facility]-90666 Level 3 Est. Patient 16:05:16 CDT Alina Castaneda MD [facility] CPT-40163 Level 3 Est. Patient 00:29:15 CDT Alina Castaneda MD [facility] CPT-21497 Level 3 Est. Patient 10:49:22 CORN MILLER Marvel [facility] CPT-70907 Level 3 Est. Patient 21:30:19 CORN MILLER Alina Castaneda MD [facility] CPT-36030 Level 4 Est. Patient 17:04:11 CORN MILLER [facility] CPT-52794 Level 3 Est. Patient 15:34:11 CORN MILLER [facility] CPT-82866 Level 2 Est. Patient 12:51:58 CORN MILLER Alina Castaneda MD [facility] CPT-19585 Level 3 Est. Patient 13:20:01 CORN MILLER Alina Castaneda MD [facility] CPT-60875 Level 3 Est. Patient 09:23:35 CDT Alina Castaneda MD [facility] Procedures Code Procedure Name Date Entry Date Standard Description CPT-54321 Bladder Scan 21:54:06 CDT CPT-G0008 Administration of Influenza Virus Vaccine 13:05:26 CDT CPT-00446 Fluzone Quadrivalent Intramuscular Suspension 0.5 ML 13: 05:26 CDT CPT-11137 Administration single or combination vaccine inc oral 11 :49:51 CDT CPT-13368 Pneumovax 11:49:51 CDT CPT-66838 Ribs unilateral 2V 12:37:22 CORN MILLER CPT-71551 Chest 2V Frontal and Lat 17:15:26 CDT CPT-26664 Abx/Therapy Injection 18:54:02 CDT CPT-J0696 Rocephin 1000 mg (Ceftriaxone) 16:00:32 CDT CPT-33945 Chest 2V Frontal and Lat 15:26:45 CDT CPT-77642 Chest 2V Frontal and Lat 10:23:27 CDT CPT-01905 Venipuncture Draw Fee 10:11:00 CDT CPT-57488 Administration single or combination vaccine inc oral 11 :56:38 CDT CPT-73536 Influenza split virus > age 3 11:56:38 CDT CPT-82171 Venipuncture Draw Fee 08:49:54 CORN MILLER CPT-29534 EKG Trac and Interp 17:54:19 CORN MILLER
--- OUTSIDE RECORDS SUMMARY | 2018-07-02 20:26 | XMS REPORT | Clinical Summary ---
[...] RIB PAIN, RIGHT SIDED ICD-786.50 Inactive Alina Csataneda MD PhD SKIN LESION ICD-709.9 Inactive Alina [...] by mouth nightly, for pain MORPHINE SULFATE 31553515970 Active Michele Chacon MD Active LATUDA 80 MG TABS 1 tab by mouth every evening LURASIDONE HCL 12804693570 Active Alina Castaneda MD PhD Active UROXATRAL 10 MG [id number] Take 1 tablet by mouth daily ALFUZOSIN HCL 84326221101 No Longer Active Alina Castaneda MD PhD Active THIOTHIXENE 5 MG CAPS by mouth twice a day THIOTHIXENE 85458000399 No Longer Active Alina Castaneda MD PhD Active ZYPREXA 7.5 MG TABS 1 at HS OLANZAPINE 05370978196 No Longer Active Alina Castaneda MD PhD Active HUMALOG 100 UNIT/ML SOLN Take 20 units with breakfast, 10u with lunch and suppetr. INSULIN LISPRO (HUMAN) 87191346730 Active Maliheh Ziglari [employer] Active LEVEMIR 100 UNIT/ML SOLN Take 70 u at 7-8pm INSULIN DETEMIR 78979061601 Active Maliheh Ziglari [employer] Active BD INSULIN SYRINGE 28G X 1/2" 1 ML MISC 1 four times per day INSULIN SYRINGE-NEEDLE U-100 00086998243 Active Maliheh Ziglari [employer] Active CYCLOBENZAPRINE HCL 10 MG TABS 1 tablet by mouth three times daily, scheduled CYCLOBENZAPRINE HCL 99082926806 Active Alina Castaneda MD PhD Active TOLTERODINE TARTRATE 2 MG TABS 1 pill twice daily, for bladder TOLTERODINE TARTRATE 04498961303 Active Alina Castaneda MD PhD Active DETROL LA 4 MG [id number] Take 1 tablet by mouth daily TOLTERODINE TARTRATE 85456759284 No Longer Active Alina Castaneda MD PhD Active HYDROCODONE-ACETAMINOPHEN 5-325 MG TABS 2 tabs by mouth three times daily as needed for pain HYDROCODONE-ACETAMINOPHEN 62104808852 Active Rhett Luther DO Active TERESE CONTOUR TEST STRP monitor blood sugars 3x/day GLUCOSE BLOOD 29508301249 No Longer Active Alina Castaneda MD PhD Active EQL TRUETEST TEST STRP Test blood sugar TID GLUCOSE BLOOD 84791727316 No Longer Active Alina Castaneda MD PhD Active FLUTICASONE PROPIONATE 50 MCG/ACT SUSP 2 sprays each nostril qDay x 30 days FLUTICASONE PROPIONATE 60607069661 No Longer Active Alina Castaneda MD PhD Active IBUPROFEN 200 MG TABS 1 Q 6 hr. PRN IBUPROFEN 21032140775 No Longer Active Alina Castaneda MD PhD Active NIACIN ER 500 MG CR-TABS 4 qHS (for triglycerides) NIACIN 24848004308 No Longer Active Alina Castaneda MD PhD Active TRUETEST TEST STRP check sugars 4x/day GLUCOSE BLOOD 63738937227 Active Marvel MARROQUIN Active ALFUZOSIN HCL ER 10 MG [id number] 1 tablet daily ALFUZOSIN HCL 30034213445 Active Vanessa Hickey MD Active CLONAZEPAM 1 MG TABS 1 pill by mouth three times daily CLONAZEPAM 83482146913 Active Alina Castaneda MD PhD Active LOVAZA 1 GM CAPS 4 daily (for triglycerides) [id number]-[id number] ETHYL ESTERS 96225786994 Active Alina Castaneda MD PhD Active SAPHRIS 5 MG SUBL by mouth twice a day ASENAPINE MALEATE 39370093910 No Longer Active Marvel MARROQUIN Active ACETAMINOPHEN 500 MG TABS 2 Q 6 hr. PRN ACETAMINOPHEN 39872824716 No Longer Active Marvel MARROQUIN Active VERAPAMIL HCL ER 120 MG [id number]-FZZ 1 pill by mouth twice a day, for headache prevention/control VERAPAMIL HCL 87903562573 Active Alina Castaneda MD PhD Active ORPHENADRINE CITRATE ER 100 MG [id number]-HCF 1 every 12 hr. as needed ORPHENADRINE CITRATE 32343185519 No Longer Active Alina Castaneda MD PhD Active NIACIN CR 500 MG CR-TABS 2 qHS NIACIN 61726742563 No Longer Active Alina Castaneda MD PhD Active AMOXICILLIN 500 MG CAPS 2 po BID x 10 days AMOXICILLIN 45309797602 No Longer Active Alina Castaneda MD PhD Active HYDROCODONE-ACETAMINOPHEN 7.5-325 MG TABS 1 four times a day as needed for pain HYDROCODONE-ACETAMINOPHEN 26781118482 No Longer Active Alina Castaneda MD PhD Active METFORMIN HCL ER 500 MG SC68P-CKM Take three tablets by mouth everyday METFORMIN HCL 58753620392 Active Alina Castaneda MD PhD Active DOXEPIN HCL 10 MG CAPS Take 1 tablet by mouth daily DOXEPIN HCL 11586012282 No Longer Active Salina Emely A Active NAVANE 10 MG CAPS 1/2 tablet twice a day THIOTHIXENE No Longer Active Salina Ervinford A Active CYCLOBENZAPRINE HCL 10 MG TABS 1/2 tablet by mouth every 8 hours as needed for muscle spasms CYCLOBENZAPRINE HCL 59076502136 No Longer Active Alina Castaneda MD PhD Active BACTROBAN 2 % CREAM apply to ear and nose twice daily MUPIROCIN CALCIUM 15780519575 No Longer Active Alina Castaneda MD PhD Active HYDROCODONE-ACETAMINOPHEN 5-325 MG TABS take one tablet by mouth every four hours as needed for pain HYDROCODONE-ACETAMINOPHEN 46661928268 No Longer Active Alina Castaneda MD PhD Active ZOLPIDEM TARTRATE 10 MG TABS take at bedtime ZOLPIDEM TARTRATE 88504277734 Active Alina Castaneda MD PhD Active ZYPREXA 5 MG TABS take one tablet by mouth every evening OLANZAPINE 32718426594 No Longer Active Alina Castaneda MD PhD Active ALBUTEROL SULFATE 0.083 % NEBU SOLN one vial per nebulizer TID and PRN cough/ soa ALBUTEROL SULFATE 51832153170 No Longer Active Alina Castaneda MD PhD Active GUAIFENESIN 600 MG ZP36G-XSL 1 tablet by mouth twice daily if needed for cough GUAIFENESIN 97664613850 No Longer Active Marvel MARROQUIN Active AZITHROMYCIN 500 MG SOLR 1 po q day AZITHROMYCIN 93476969591 No Longer Active Alina Castaneda MD PhD Active METOPROLOL SUCCINATE 100 MG PD18W-LJM 1 by mouth daily for blood pressure METOPROLOL SUCCINATE 61323474153 Active Alina Castaneda MD PhD Active PROMETHAZINE-CODEINE 6.25-10 MG/5ML SYRP 1 tsp po q 6 hours prn cough PROMETHAZINE-CODEINE 10312186941 No Longer Active Alina Castaneda MD PhD Active CEFDINIR 300 MG CAPS by mouth twice a day CEFDINIR 27383336008 No Longer Active Alina Castaneda MD PhD Active METFORMIN HCL 500 MG [id number]-SKM Take 3 tablets by mouth everyday METFORMIN HCL 75371425628 No Longer Active Alina Castaneda MD PhD Active LEVEMIR 100 UNIT/ML SOLN 90 units SQ qHS INSULIN DETEMIR 32195467299 No Longer Active Marvel MARROQUIN Active TOPROL XL 100 MG [id number] 1 @ HS METOPROLOL SUCCINATE 11815192867 No Longer Active Marvel MARROQUIN Active ALLOPURINOL 300 MG TABS Take one by mouth daily ALLOPURINOL 12476399115 Active Alina Castaneda MD PhD Active ZYPREXA 10 MG TABS Take one by mouth daily OLANZAPINE 20984422184 No Longer Active Alina Castaneda MD PhD Active NOVOLOG 100 UNIT/ML SOLN 40 units with every meal INSULIN ASPART 01505952534 No Longer Active Alina Castaneda MD PhD Active VERAPAMIL HCL CR 120 MG TAB CR 1 qPM VERAPAMIL HCL 76169019627 No Longer Active Salina Han [facility] Active ZYPREXA 15 MG TABS Take 1 tablet by mouth daily OLANZAPINE 68202844453 No Longer Active Marvel MARROQUIN Active LISINOPRIL 20 MG TABS 1 BID LISINOPRIL 53901482696 Active Alina Castaneda MD PhD Active ALBUTEROL SULFATE (2.5 MG/3ML) 0.083% NEBU 1 neb tid and prn cough ALBUTEROL SULFATE 45056363066 No Longer Active Alina Castaneda MD PhD Active FLUVOXAMINE MALEATE 100 MG TABS Take one (1) tablet by mouth am, 1/2 at noon, 1 pm FLUVOXAMINE MALEATE 01334780437 Active Alina Castaneda MD PhD Active TRAVATAN Z 0.004 % SOLN 1 gtt each eye daily TRAVOPROST 75004418345 Active CRYSTAL Suarez Active LANTUS 100 UNIT/ML SOLN 60 units sq q hs INSULIN GLARGINE 99402266439 No Longer Active CRYSTAL Suarez Active ALBUTEROL SULFATE (2.5 MG/3ML) 0.083% NEBU 1 neb tid and prn cough ALBUTEROL SULFATE (2.5 MG/3ML) 0.083% NEBU 413844 ALBUTEROL SULFATE Inactive ZYPREXA 15 MG TABS Take 1 tablet by mouth daily ZYPREXA 15 MG TABS 291259 OLANZAPINE Inactive VERAPAMIL HCL CR 120 MG TAB CR 1 qPM VERAPAMIL HCL CR 120 MG TAB CR VERAPAMIL HCL Inactive ZYPREXA 10 MG TABS Take one by mouth daily ZYPREXA 10 MG TABS 360741 OLANZAPINE Inactive TOPROL XL 100 MG [id number] 1 @ HS TOPROL XL 100 MG OF84E-YPK METOPROLOL SUCCINATE Inactive LEVEMIR 100 UNIT/ML SOLN 90 units SQ qHS LEVEMIR 100 UNIT/ML SOLN INSULIN DETEMIR Inactive PROMETHAZINE-CODEINE 6.25-10 MG/5ML SYRP 1 tsp po q 6 hours prn cough PROMETHAZINE-CODEINE 6.25-10 MG/5ML SYRP 190885 PROMETHAZINE- CODEINE Inactive GUAIFENESIN 600 MG MO54N-DPC 1 tablet by mouth twice daily if needed for cough GUAIFENESIN 600 MG [id number]-WDK GUAIFENESIN Inactive ALBUTEROL SULFATE 0.083 % NEBU SOLN one vial per nebulizer TID and PRN cough/ soa ALBUTEROL SULFATE 0.083 % NEBU SOLN 513595 ALBUTEROL SULFATE Inactive ZYPREXA 5 MG TABS take one tablet by mouth every evening ZYPREXA 5 MG TABS 533277 OLANZAPINE Inactive HYDROCODONE-ACETAMINOPHEN 5-325 MG TABS take one tablet by mouth every four hours as needed for pain HYDROCODONE-ACETAMINOPHEN 5-325 MG TABS 582831 HYDROCODONE-ACETAMINOPHEN Inactive BACTROBAN 2 % CREAM apply to ear and nose twice daily BACTROBAN 2 % CREAM 481388 MUPIROCIN CALCIUM Inactive CYCLOBENZAPRINE HCL 10 MG TABS 1/2 tablet by mouth every 8 hours as needed for muscle spasms CYCLOBENZAPRINE HCL 10 MG TABS 717625 CYCLOBENZAPRINE HCL Inactive NAVANE 10 MG CAPS 1/2 tablet twice a day NAVANE 10 MG CAPS THIOTHIXENE Inactive DOXEPIN HCL 10 MG CAPS Take 1 tablet by mouth daily DOXEPIN HCL 10 MG CAPS 5119036 DOXEPIN HCL Inactive HYDROCODONE-ACETAMINOPHEN 7.5-325 MG TABS 1 four times a day as needed for pain HYDROCODONE-ACETAMINOPHEN 7.5-325 MG TABS 119491 HYDROCODONE-ACETAMINOPHEN Inactive NIACIN CR 500 MG CR-TABS 2 qHS NIACIN CR 500 MG CR- TABS NIACIN Inactive ORPHENADRINE CITRATE ER 100 MG EP61X-TAO 1 every 12 hr. as needed ORPHENADRINE CITRATE ER 100 MG NC86P-HPJ ORPHENADRINE CITRATE Inactive ACETAMINOPHEN 500 MG TABS 2 Q 6 hr. PRN ACETAMINOPHEN 500 MG TABS 679527 ACETAMINOPHEN Inactive SAPHRIS 5 MG SUBL by mouth twice a day SAPHRIS 5 MG SUBL ASENAPINE MALEATE Inactive NIACIN ER 500 MG CR-TABS 4 qHS (for triglycerides) NIACIN ER 500 MG CR-TABS NIACIN Inactive IBUPROFEN 200 MG TABS 1 Q 6 hr. PRN IBUPROFEN 200 MG TABS 457508 IBUPROFEN Inactive FLUTICASONE PROPIONATE 50 MCG/ACT SUSP 2 sprays each nostril qDay x 30 days FLUTICASONE PROPIONATE 50 MCG/ACT SUSP 613022 FLUTICASONE PROPIONATE Inactive EQL TRUETEST TEST STRP Test blood sugar TID EQL TRUETEST TEST STRP GLUCOSE BLOOD Inactive TERESE CONTOUR TEST STRP monitor blood sugars 3x/day TERESE CONTOUR TEST STRP GLUCOSE BLOOD Inactive DETROL LA 4 MG LF55X-BUH Take 1 tablet by mouth daily DETROL LA 4 MG LU67V-DMQ TOLTERODINE TARTRATE Inactive ZYPREXA 7.5 MG TABS 1 at HS ZYPREXA 7.5 MG TABS 635416 OLANZAPINE Inactive THIOTHIXENE 5 MG CAPS by mouth twice a day THIOTHIXENE 5 MG CAPS 806167 THIOTHIXENE Inactive UROXATRAL 10 MG BV42V-VOL Take 1 tablet by mouth daily UROXATRAL 10 MG KI57A-COA ALFUZOSIN HCL Inactive CEFDINIR 300 MG CAPS by mouth twice a day CEFDINIR 300 MG CAPS 109570 CEFDINIR Inactive AZITHROMYCIN 500 MG SOLR 1 po q day AZITHROMYCIN 500 MG SOLR 352418 AZITHROMYCIN Inactive AMOXICILLIN 500 MG CAPS 2 po BID x 10 days AMOXICILLIN 500 MG CAPS 492224 AMOXICILLIN Inactive Immunizations Vaccine Administration Date Value [...] Fluvirin, Fluarix, Agriflu(>=18 yo)) Fluzone (>3 yrs.) [[id number]] Influenza, seasonal, injectable pneumococcal immunization administered Pneumovax [...] HGBA1C - Chemistry sodium, serum 130 mmol/L 565-095 9121/06/09 potassium, serum 4.0 mmol/L 3.5-5.2 chloride, serum [...] 6.0 mg/dL 2.6-7.2 sodium, serum 130 mmol/L 013-944 1505/05/01 potassium, serum 5.2 mmol/L 3.5-5.2 chloride, serum [...] 0.40 mg/dL 0.00-1.00 cholesterol, serum 151 mg/dL 433-189 8839/05/01 triglyceride, serum, fasting 356 mg/dL 30-200 HDL [...] Panel - Chemistry sodium, serum 127 mmol/L 740-994 6520/10/27 potassium, serum 4.1 mmol/L 3.5-5.2 chloride, serum [...] HGBA1C - Chemistry sodium, serum 126 mmol/L 846-079 4114/02/26 potassium, serum 4.8 mmol/L 3.5-5.2 chloride, serum [...] mg/dL Encounters Code Encounter Date Provider Facility CPT-24617 Level 3 Est. Patient 08:54:46 CDT Alina Castaneda MD PhD [facility] CPT-29340 Level 3 Est. Patient 09:32:11 CDT Marvel MARROQUIN [facility] CPT-81714 Level 3 Est. Patient 12:02:49 CDT Alina Castaneda MD [facility]-87158 Level 3 Est. Patient 19:17:33 CDT Alina Castaneda MD [facility]-25057 Level 3 Est. [facility] 13:19:[facility]52707 Level 3 Est. Patient 08:20:05 CDT Alina Castaneda MD [facility]-72096 Level 3 Est. Patient 15:17:18 CDT Alina Castaneda MD [facility]-08908 Level 3 Est. Patient 14:25:36 AUTO GLASS TECHNICIAN [facility]06340 Level 3 Est. Patient 10:09:15 AUTO GLASS TECHNICIAN [facility]52667 Level 3 Est. Patient 21:28:43 CDT Alina Castaneda MD [facility]-39889 Level 3 Est. Patient 15:20:11 CDT [facility]23241 Level 4 Est. Patient 19:08:12 CDT Alina Castaneda MD [facility]-63493 Level 3 Est. [facility]:06:[facility]606 Level 4 Est. Patient 17:48:15 CDT Alina Castaneda MD [facility]-16217 Level 3 Est. Patient 14:53:49 CDT Alina Castaneda MD [facility]-97197 Level 3 Est. Patient 09:35:16 CDT Alina Castaneda MD [facility]77592 Level 3 Est. Patient 12:23:22 CDT Alina Castaneda MD [facility]-92153 Level 3 Est. Patient 16:19:15 CDT Alina Castaneda MD [facility]-27738 Level 3 Est. Patient 21:39:56 AUTO GLASS TECHNICIAN Alina Castaneda MD [facility]-00722 Level 4 Est. Patient 14:12:56 AUTO GLASS TECHNICIAN Alina Castaneda MD [facility]-24222 Level 2 Est. Patient 15:34:57 AUTO GLASS TECHNICIAN Alina Castaneda MD [facility]-27104 Level 3 Est. Patient 12:17:04 AUTO GLASS TECHNICIAN Alina Castaneda MD [facility]-74085 Level 3 Est. Patient 09:18:18 AUTO GLASS TECHNICIAN Marvel Charles [facility]-51209 Level 2 Est. Patient 21:50:24 CDT Alina Castaneda MD [facility]-94695 Level 3 Est. Patient 09:17:28 CDT Marvel Charles [facility] CPT-92564 Level 4 Est. Patient 18:54:02 CDT Alina Castaneda MD [facility]-09373 Level 3 Est. Patient 10:47:10 CDT Alina Castaneda MD [facility]-54981 Level 3 Est. Patient 09:22:20 CDT Marvel Charles [facility]-90258 Level 3 Est. Patient 16:39:43 CDT Marvel Charles [facility]-69826 Level 3 Est. Patient 16:05:16 CDT Alina Castaneda MD [facility] CPT-27031 Level 3 Est. Patient 00:29:15 CDT Alina Castaneda MD [facility] CPT-06531 Level 3 Est. Patient 10:49:22 AUTO GLASS TECHNICIAN Marvel Charles [facility] CPT-17623 Level 3 Est. Patient 21:30:19 AUTO GLASS TECHNICIAN Alina Castaneda MD [facility] CPT-77282 Level 4 Est. Patient 17:04:11 AUTO GLASS TECHNICIAN Marvel Charles [facility] CPT-81383 Level 3 Est. Patient 15:34:11 AUTO GLASS TECHNICIAN [place] [facility] CPT-37983 Level 2 Est. Patient 12:51:58 AUTO GLASS TECHNICIAN Alina Castaneda MD [facility] CPT-65575 Level 3 Est. Patient 13:20:01 AUTO GLASS TECHNICIAN Alina Castaneda MD [facility] CPT-42825 Level 3 Est. Patient 09:23:35 CDT Alina Castaneda MD [facility] Procedures Code Procedure Name Date Entry Date Standard Description CPT-G0008 Administration of Influenza Virus Vaccine 13:05:26 CDT CPT-56690 Fluzone Quadrivalent Intramuscular Suspension 0.5 ML 13: 05:26 CDT CPT-42993 Administration single or combination vaccine inc oral 11 :49:51 CDT CPT-45165 Pneumovax 11:49:51 CDT CPT-49825 Ribs unilateral 2V 12:37:22 AUTO GLASS TECHNICIAN CPT-67493 Chest 2V Frontal and Lat 17:15:26 CDT CPT-35411 Abx/Therapy Injection 18:54:02 CDT CPT-J0696 Rocephin 1000 mg (Ceftriaxone) 16:00:32 CDT CPT-23664 Chest 2V Frontal and Lat 15:26:45 CDT CPT-17191 Chest 2V Frontal and Lat 10:23:27 CDT CPT-49262 Venipuncture Draw Fee 10:11:00 CDT CPT-34818 Administration single or combination vaccine inc oral 11 :56:38 CDT CPT-63894 Influenza split virus > age 3 11:56:38 CDT CPT-61112 Venipuncture Draw Fee 08:49:54 AUTO GLASS TECHNICIAN CPT-87274 EKG Trac and Interp 17:54:19 AUTO GLASS TECHNICIAN
--- OUTSIDE RECORDS SUMMARY | 2018-07-02 20:28 | XMS REPORT | Clinical Summary ---
Author Author Admin, TERELL Organization [facility] Address Unknown Phone Allergies, Adverse [...] four times per day INSULIN SYRINGE-NEEDLE U-100 [id number] Active Alina Castaneda MD PhD Active CYCLOBENZAPRINE HCL 10 MG TABS 1 tablet by mouth three times daily, scheduled CYCLOBENZAPRINE HCL 74330293161 Active Alina Castaneda MD PhD Active HUMALOG 100 UNIT/ML SOLN take 40u with each meal INSULIN LISPRO (HUMAN) 41014011547 Active Alina Castaneda MD PhD Active TOLTERODINE TARTRATE 2 MG TABS 1 pill twice daily, for bladder TOLTERODINE TARTRATE 54644068317 Active Alina Castaneda MD PhD Active DETROL LA 4 MG [id number] Take 1 tablet by mouth daily TOLTERODINE TARTRATE 74157602406 No Longer Active Alina Castaneda MD PhD Active HYDROCODONE-ACETAMINOPHEN 5-325 MG TABS 2 tabs by mouth three times daily as needed for pain HYDROCODONE-ACETAMINOPHEN 96214035236 Active Alina Castaneda MD PhD Active TERESE CONTOUR TEST STRP monitor blood sugars 3x/day GLUCOSE BLOOD 75677990073 No Longer Active Alina Castaneda MD PhD Active EQL TRUETEST TEST STRP Test blood sugar TID GLUCOSE BLOOD 52687305453 No Longer Active Alina Castaneda MD PhD Active FLUTICASONE PROPIONATE 50 MCG/ACT SUSP 2 sprays each nostril qDay x 30 days FLUTICASONE PROPIONATE 94102658789 No Longer Active Alina Castaneda MD PhD Active IBUPROFEN 200 MG TABS 1 Q 6 hr. PRN IBUPROFEN 71918267330 No Longer Active Alina Castaneda MD PhD Active NIACIN ER 500 MG CR-TABS 4 qHS (for triglycerides) NIACIN 73459324490 No Longer Active Alina Castaneda MD PhD Active LEVEMIR 100 UNIT/ML SOLN Take 100u at 7-8pm INSULIN DETEMIR 38866679144 Active Alina Castaneda MD PhD Active TRUETEST TEST STRP check sugars 4x/day GLUCOSE BLOOD 10373959621 Active Alina Castaneda MD PhD Active ALFUZOSIN HCL ER 10 MG [id number] 1 tablet daily ALFUZOSIN HCL 96960031835 Active Vanessa Hickey MD Active CLONAZEPAM 1 MG TABS 1 pill by mouth three times daily CLONAZEPAM 60683153774 Active Alina Castaneda MD PhD Active LOVAZA 1 GM CAPS 4 daily (for triglycerides) [id number] ETHYL ESTERS 35250124587 Active Alina Castaneda MD PhD Active SAPHRIS 5 MG SUBL by mouth twice a day ASENAPINE MALEATE 09342477786 No Longer Active [facility] Active ACETAMINOPHEN 500 MG TABS 2 Q 6 hr. PRN ACETAMINOPHEN 53524849800 No Longer Active Marvel MENDOZAP Active VERAPAMIL HCL ER 120 MG [id number] 1 pill by mouth twice a day, for headache prevention/control VERAPAMIL HCL 40694981157 Active Alina Castaneda MD PhD Active ORPHENADRINE CITRATE ER 100 MG [id number] 1 every 12 hr. as needed ORPHENADRINE CITRATE 67646533164 No Longer Active Alina Castaneda MD PhD Active NIACIN CR 500 MG CR-TABS 2 qHS NIACIN 69065528573 No Longer Active Alina Castaneda MD PhD Active AMOXICILLIN 500 MG CAPS 2 po BID x 10 days AMOXICILLIN 82767934966 No Longer Active Alina Castaneda MD PhD Active ZYPREXA 7.5 MG TABS 1 at HS OLANZAPINE 97660140930 Active Alina Castaneda MD PhD Active THIOTHIXENE 5 MG CAPS by mouth twice a day THIOTHIXENE 07728519985 Active Alina Castaneda MD PhD Active HYDROCODONE-ACETAMINOPHEN 7.5-325 MG TABS 1 four times a day as needed for pain HYDROCODONE-ACETAMINOPHEN 22125361101 No Longer Active Alina Castaneda MD PhD Active METFORMIN HCL ER 500 MG [id number]-[id number] Take three tablets by mouth everyday METFORMIN HCL 27528362822 Active Marvel MENDOZAP Active DOXEPIN HCL 10 MG CAPS Take 1 tablet by mouth daily DOXEPIN HCL 14337325857 No Longer Active Salina Han [facility] Active NAVANE 10 MG CAPS 1/2 tablet twice a day THIOTHIXENE No Longer Active Salina ROBBINS Active CYCLOBENZAPRINE HCL 10 MG TABS 1/2 tablet by mouth every 8 hours as needed for muscle spasms CYCLOBENZAPRINE HCL 84998908165 No Longer Active Alina Castaneda MD PhD Active BACTROBAN 2 % CREAM apply to ear and nose twice daily MUPIROCIN CALCIUM 15204560404 No Longer Active Alina Castaneda MD PhD Active HYDROCODONE-ACETAMINOPHEN 5-325 MG TABS take one tablet by mouth every four hours as needed for pain HYDROCODONE-ACETAMINOPHEN 90865163087 No Longer Active Alina Castaneda MD PhD Active ZOLPIDEM TARTRATE 10 MG TABS take at bedtime ZOLPIDEM TARTRATE 37287528729 Active Alina Castaneda MD PhD Active ZYPREXA 5 MG TABS take one tablet by mouth every evening OLANZAPINE 30820156547 No Longer Active Alina Castaneda MD PhD Active ALBUTEROL SULFATE 0.083 % NEBU SOLN one vial per nebulizer TID and PRN cough/ soa ALBUTEROL SULFATE 18754699030 No Longer Active Alina Castaneda MD PhD Active GUAIFENESIN 600 MG [id number]-YGI 1 tablet by mouth twice daily if needed for cough GUAIFENESIN 57438038095 No Longer Active Marvel MARROQUIN Active AZITHROMYCIN 500 MG SOLR 1 po q day AZITHROMYCIN 54986962980 No Longer Active Alina Castaneda MD PhD Active METOPROLOL SUCCINATE 100 MG NL85J-FYY 1 by mouth daily for blood pressure METOPROLOL SUCCINATE 39083794486 Active Alina Castaneda MD PhD Active PROMETHAZINE-CODEINE 6.25-10 MG/5ML SYRP 1 tsp po q 6 hours prn cough PROMETHAZINE-CODEINE 03073929049 No Longer Active Alina Castaneda MD PhD Active CEFDINIR 300 MG CAPS by mouth twice a day CEFDINIR 15840909802 No Longer Active Alina Castaneda MD PhD Active METFORMIN HCL 500 MG [id number] Take 3 tablets by mouth everyday METFORMIN HCL 28073760820 No Longer Active Alina Castaneda MD PhD Active LEVEMIR 100 UNIT/ML SOLN 90 units SQ qHS INSULIN DETEMIR 05845550239 No Longer Active Marvel MARROQUIN Active TOPROL XL 100 MG [id number] 1 @ HS METOPROLOL SUCCINATE 26809569829 No Longer Active Marvel MARROQUIN Active ALLOPURINOL 300 MG TABS Take one by mouth daily ALLOPURINOL 47790314221 Active Alina Castaneda MD PhD Active ZYPREXA 10 MG TABS Take one by mouth daily OLANZAPINE 63589498940 No Longer Active Alina Castaneda MD PhD Active NOVOLOG 100 UNIT/ML SOLN 40 units with every meal INSULIN ASPART 36097601847 No Longer Active Alina Castaneda MD PhD Active VERAPAMIL HCL CR 120 MG TAB CR 1 qPM VERAPAMIL HCL 34800665731 No Longer Active Salina Han A Active ZYPREXA 15 MG TABS Take 1 tablet by mouth daily OLANZAPINE 07541093887 No Longer Active Marvel MARROQUIN Active LISINOPRIL 20 MG TABS 1 BID LISINOPRIL 75568746430 Active Mao Rodriguez MD Active ALBUTEROL SULFATE (2.5 MG/3ML) 0.083% NEBU 1 neb tid and prn cough ALBUTEROL SULFATE 71009976484 No Longer Active Alina Castaneda MD PhD Active FLUVOXAMINE MALEATE 100 MG TABS Take one (1) tablet by mouth am, 1/2 at noon, 1 pm FLUVOXAMINE MALEATE 99355415902 Active Alina Castaneda MD PhD Active TRAVATAN Z 0.004 % SOLN 1 gtt each eye daily TRAVOPROST 54947988878 Active Alina Mendez Active LANTUS 100 UNIT/ML SOLN 60 units sq q hs INSULIN GLARGINE 87763035524 No Longer Active Alina Mendez Active UROXATRAL 10 MG [id number] Take 1 tablet by mouth daily ALFUZOSIN HCL 79393544585 Active Tanya MARROQUIN Active ALBUTEROL SULFATE (2.5 MG/3ML) 0.083% NEBU 1 neb tid and prn cough ALBUTEROL SULFATE (2.5 MG/3ML) 0.083% NEBU 134889 ALBUTEROL SULFATE Inactive ZYPREXA 15 MG TABS Take 1 tablet by mouth daily ZYPREXA 15 MG TABS 176695 OLANZAPINE Inactive VERAPAMIL HCL CR 120 MG TAB CR 1 qPM VERAPAMIL HCL CR 120 MG TAB CR VERAPAMIL HCL Inactive ZYPREXA 10 MG TABS Take one by mouth daily ZYPREXA 10 MG TABS 128328 OLANZAPINE Inactive TOPROL XL 100 MG [id number] 1 @ HS TOPROL XL 100 MG [id number]-PTI METOPROLOL SUCCINATE Inactive LEVEMIR 100 UNIT/ML SOLN 90 units SQ qHS LEVEMIR 100 UNIT/ML SOLN INSULIN DETEMIR Inactive PROMETHAZINE-CODEINE 6.25-10 MG/5ML SYRP 1 tsp po q 6 hours prn cough PROMETHAZINE-CODEINE 6.25-10 MG/5ML SYRP 583203 PROMETHAZINE- CODEINE Inactive GUAIFENESIN 600 MG [id number]-VTK 1 tablet by mouth twice daily if needed for cough GUAIFENESIN 600 MG [id number]-AHL GUAIFENESIN Inactive ALBUTEROL SULFATE 0.083 % NEBU SOLN one vial per nebulizer TID and PRN cough/ soa ALBUTEROL SULFATE 0.083 % NEBU SOLN 561805 ALBUTEROL SULFATE Inactive ZYPREXA 5 MG TABS take one tablet by mouth every evening ZYPREXA 5 MG TABS 293687 OLANZAPINE Inactive HYDROCODONE-ACETAMINOPHEN 5-325 MG TABS take one tablet by mouth every four hours as needed for pain HYDROCODONE-ACETAMINOPHEN 5-325 MG TABS 277446 HYDROCODONE-ACETAMINOPHEN Inactive BACTROBAN 2 % CREAM apply to ear and nose twice daily BACTROBAN 2 % CREAM 213112 MUPIROCIN CALCIUM Inactive CYCLOBENZAPRINE HCL 10 MG TABS 1/2 tablet by mouth every 8 hours as needed for muscle spasms CYCLOBENZAPRINE HCL 10 MG TABS 137282 CYCLOBENZAPRINE HCL Inactive NAVANE 10 MG CAPS 1/2 tablet twice a day NAVANE 10 MG CAPS THIOTHIXENE Inactive DOXEPIN HCL 10 MG CAPS Take 1 tablet by mouth daily DOXEPIN HCL 10 MG CAPS 2008676 DOXEPIN HCL Inactive HYDROCODONE-ACETAMINOPHEN 7.5-325 MG TABS 1 four times a day as needed for pain HYDROCODONE-ACETAMINOPHEN 7.5-325 MG TABS 719519 HYDROCODONE-ACETAMINOPHEN Inactive NIACIN CR 500 MG CR-TABS 2 qHS NIACIN CR 500 MG CR- TABS NIACIN Inactive ORPHENADRINE CITRATE ER 100 MG [id number] 1 every 12 hr. as needed ORPHENADRINE CITRATE ER 100 MG [id number]-YYD ORPHENADRINE CITRATE Inactive ACETAMINOPHEN 500 MG TABS 2 Q 6 hr. PRN ACETAMINOPHEN 500 MG TABS 964695 ACETAMINOPHEN Inactive SAPHRIS 5 MG SUBL by mouth twice a day SAPHRIS 5 MG SUBL ASENAPINE MALEATE Inactive NIACIN ER 500 MG CR-TABS 4 qHS (for triglycerides) NIACIN ER 500 MG CR-TABS NIACIN Inactive IBUPROFEN 200 MG TABS 1 Q 6 hr. PRN IBUPROFEN 200 MG TABS 702689 IBUPROFEN Inactive FLUTICASONE PROPIONATE 50 MCG/ACT SUSP 2 sprays each nostril qDay x 30 days FLUTICASONE PROPIONATE 50 MCG/ACT SUSP 037142 FLUTICASONE PROPIONATE Inactive EQL TRUETEST TEST STRP Test blood sugar TID EQL TRUETEST TEST STRP GLUCOSE BLOOD Inactive TERESE CONTOUR TEST STRP monitor blood sugars 3x/day TERESE CONTOUR TEST STRP GLUCOSE BLOOD Inactive DETROL LA 4 MG [id number] Take 1 tablet by mouth daily DETROL LA 4 MG UR72Y-YZF TOLTERODINE TARTRATE Inactive CEFDINIR 300 MG CAPS by mouth twice a day CEFDINIR 300 MG CAPS 421059 CEFDINIR Inactive AZITHROMYCIN 500 MG SOLR 1 po q day AZITHROMYCIN 500 MG SOLR 908837 AZITHROMYCIN Inactive AMOXICILLIN 500 MG CAPS 2 po BID x 10 days AMOXICILLIN 500 MG CAPS 392368 AMOXICILLIN Inactive Immunizations Vaccine Administration Date Value [...] Fluvirin, Fluarix, Agriflu(>=18 yo)) Fluzone (>3 yrs.) [[id number]] Influenza, seasonal, injectable pneumococcal immunization administered Pneumovax [...] acid - Chemistry sodium, serum 130 mmol/L 493-717 4417/05/01 potassium, serum 5.2 mmol/L 3.5-5.2 chloride, serum [...] 0.40 mg/dL 0.00-1.00 cholesterol, serum 151 mg/dL 604-181 9898/05/01 triglyceride, serum, fasting 356 mg/dL 30-200 HDL [...] HGBA1C - Chemistry sodium, serum 126 mmol/L [phone]/02/26 potassium, serum 4.8 mmol/L 3.5-5.2 chloride, serum [...] DIRECT - Chemistry cholesterol, serum 158 mg/dL 086-319 0082/07/11 triglyceride, serum, fasting 489 mg/dL 30-200 HDL [...] mg/dL Encounters Code Encounter Date Provider Facility CPT-86300 Level 3 Est. Patient 08:20:05 CDT Alina Castaneda MD PhD [facility]-95353 Level 3 Est. Patient 15:17:18 CDT Alina Castaneda MD PhD [facility]-94183 Level 3 Est. Patient 14:25:36 DISC INSPECTOR [facility]-79714 Level 3 Est. Patient 10:09:15 DISC INSPECTOR [facility] CPT-85692 Level 3 Est. Patient 21:28:43 CDT Alina Castaneda MD PhD [facility]-54778 Level 3 Est. Patient 15:20:11 CDT [facility]-47233 Level 4 Est. Patient 19:08:12 CDT Alina Castaneda MD PhD [facility]27763 Level 3 Est. Patient 15:06:39 CDT [facility]-34667 Level 4 Est. Patient 17:48:15 CDT Alina Castaneda MD [facility]-73105 Level 3 Est. Patient 14:53:49 CDT Alina Castaneda MD [facility]-78292 Level 3 Est. Patient 09:35:16 CDT Alina Castaneda MD [facility]-23828 Level 3 Est. Patient 12:23:22 CDT Alina Castaneda MD [facility]-08258 Level 3 Est. Patient 16:19:15 CDT Alina Castaneda MD [facility]-74623 Level 3 Est. Patient 21:39:56 DISC INSPECTOR Alina Castaneda MD [facility]-54580 Level 4 Est. Patient 14:12:56 DISC INSPECTOR Alina Castaneda MD [facility]-28920 Level 2 Est. Patient 15:34:57 DISC INSPECTOR Alina Castaneda MD [facility]-95180 Level 3 Est. Patient 12:17:04 DISC INSPECTOR Alina Castaneda MD [facility]-88612 Level 3 Est. Patient 09:18:18 DISC INSPECTOR [facility]-02389 Level 2 Est. Patient 21:50:24 CDT Alina Castaneda MD [facility]-38124 Level 3 Est. Patient 09:17:28 CDT [facility]-23697 Level 4 Est. Patient 18:54:02 CDT Alina Castaneda MD [facility]-02489 Level 3 Est. Patient 10:47:10 CDT Alina Castaneda MD [facility]-04423 Level 3 Est. Patient 09:22:20 [facility] Est[facility]:39[facility] CPT-54489 Level 3 Est. Patient 16:05:16 CDT Alina Castaneda MD [facility] CPT-32797 Level 3 Est. Patient 00:29:15 CDT Alina Castaneda MD [facility] CPT-37963 Level 3 Est. Patient 10:49:22 DISC INSPECTOR Marvel [facility] CPT-47899 Level 3 Est. Patient 21:30:19 DISC INSPECTOR Alina Castaneda MD [facility] CPT-38067 Level 4 Est. Patient 17:04:11 DISC INSPECTOR [facility] CPT-88045 Level 3 Est. Patient 15:34:11 DISC INSPECTOR [facility] CPT-39995 Level 2 Est. Patient 12:51:58 DISC INSPECTOR Alina Castaneda MD [facility] CPT-92439 Level 3 Est. Patient 13:20:01 DISC INSPECTOR Alina Castaneda MD [facility] CPT-92396 Level 3 Est. Patient 09:23:35 CDT Alina Castaneda MD [facility] Procedures Code Procedure Name Date Entry Date Standard Description CPT-67096 Administration single or combination vaccine inc oral 11 :49:51 CDT CPT-92029 Pneumovax 11:49:51 CDT CPT-15488 Ribs unilateral 2V 12:37:22 DISC INSPECTOR CPT-48770 Chest 2V Frontal and Lat 17:15:26 CDT CPT-56365 Abx/Therapy Injection 18:54:02 CDT CPT-J0696 Rocephin 1000 mg (Ceftriaxone) 16:00:32 CDT CPT-34225 Chest 2V Frontal and Lat 15:26:45 CDT CPT-21093 Chest 2V Frontal and Lat 10:23:27 CDT CPT-21911 Venipuncture Draw Fee 10:11:00 CDT CPT-50089 Administration single or combination vaccine inc oral 11 :56:38 CDT CPT-97130 Influenza split virus > age 3 11:56:38 CDT CPT-04183 Venipuncture Draw Fee 08:49:54 DISC INSPECTOR CPT-03393 EKG Trac and Interp 17:54:19 DISC INSPECTOR
--- OUTSIDE RECORDS SUMMARY | 2018-07-02 20:29 | XMS REPORT | Clinical Summary ---
Author Author Admin, TERELL Organization [facility] Address Unknown Phone Allergies, Adverse Reactions, Alerts [...] PhD Esophageal reflux HYPERLIPIDEMIA 272.4 Active Alina Castaenda MD PhD Other and unspecified hyperlipidemia HYPERTENSION [...] OF PROSTATE ICD-V76.44 Roro Castaneda MD PhD Medication List Medication Instructions Start Date Stop Date Generic Name NDC Status Provider Patient Instruction HUMALOG 100 UNIT/ML SOLN Take 20 units with each meal INSULIN LISPRO (HUMAN) 45944097790 Active [employer] Active LEVEMIR 100 UNIT/ML SOLN Take 80 u at 7-8pm INSULIN DETEMIR 82135990685 Active Maliheh [employer] Active BD INSULIN SYRINGE 28G X 1/2" 1 ML MISC 1 four times per day INSULIN SYRINGE-NEEDLE U-100 49346869752 Active Alina Castaneda MD PhD Active CYCLOBENZAPRINE HCL 10 MG TABS 1 tablet by mouth three times daily, scheduled CYCLOBENZAPRINE HCL 42251654259 Active Alina Castaneda MD PhD Active TOLTERODINE TARTRATE 2 MG TABS 1 pill twice daily, for bladder TOLTERODINE TARTRATE 15104771194 Active Alina Castaneda MD PhD Active DETROL LA 4 MG [id number] Take 1 tablet by mouth daily TOLTERODINE TARTRATE 80072445874 No Longer Active Alina Castaneda MD PhD Active HYDROCODONE-ACETAMINOPHEN 5-325 MG TABS 2 tabs by mouth three times daily as needed for pain HYDROCODONE-ACETAMINOPHEN 01201597155 Active Alina Castaneda MD PhD Active TERESE CONTOUR TEST STRP monitor blood sugars 3x/day GLUCOSE BLOOD 42596697845 No Longer Active Alina Castaneda MD PhD Active EQL TRUETEST TEST STRP Test blood sugar TID GLUCOSE BLOOD 69772563588 No Longer Active Alina Castaneda MD PhD Active FLUTICASONE PROPIONATE 50 MCG/ACT SUSP 2 sprays each nostril qDay x 30 days FLUTICASONE PROPIONATE 59032745173 No Longer Active Alina Castaneda MD PhD Active IBUPROFEN 200 MG TABS 1 Q 6 hr. PRN IBUPROFEN 97166800977 No Longer Active Alina Castaneda MD PhD Active NIACIN ER 500 MG CR-TABS 4 qHS (for triglycerides) NIACIN 86639623619 No Longer Active Alina Castaneda MD PhD Active TRUETEST TEST STRP check sugars 4x/day GLUCOSE BLOOD 02555253385 Active Alina Castaneda MD PhD Active ALFUZOSIN HCL ER 10 MG [id number] 1 tablet daily ALFUZOSIN HCL 14051887566 Active Vanessa Hickey MD Active CLONAZEPAM 1 MG TABS 1 pill by mouth three times daily CLONAZEPAM 62293597048 Active Alina Castaneda MD PhD Active LOVAZA 1 GM CAPS 4 daily (for triglycerides) [id number] ETHYL ESTERS 07959894489 Active Alina Castaneda MD PhD Active SAPHRIS 5 MG SUBL by mouth twice a day ASENAPINE MALEATE 55033083566 No Longer Active Marvel MENDOZAP Active ACETAMINOPHEN 500 MG TABS 2 Q 6 hr. PRN ACETAMINOPHEN 50302579400 No Longer Active [facility] [employer] Active VERAPAMIL HCL ER 120 MG [id number] 1 pill by mouth twice a day, for headache prevention/control VERAPAMIL HCL 97394258505 Active Alina Castaneda MD PhD Active ORPHENADRINE CITRATE ER 100 MG SY46Z-KQP 1 every 12 hr. as needed ORPHENADRINE CITRATE 00047537915 No Longer Active Alina Castaneda MD PhD Active NIACIN CR 500 MG CR-TABS 2 qHS NIACIN 28889396570 No Longer Active Alina Castaneda MD PhD Active AMOXICILLIN 500 MG CAPS 2 po BID x 10 days AMOXICILLIN 10076896708 No Longer Active Alina Castaneda MD PhD Active ZYPREXA 7.5 MG TABS 1 at HS OLANZAPINE 80419819320 Active Alina Castaneda MD PhD Active THIOTHIXENE 5 MG CAPS by mouth twice a day THIOTHIXENE 01519542878 Active Alina Castaneda MD PhD Active HYDROCODONE-ACETAMINOPHEN 7.5-325 MG TABS 1 four times a day as needed for pain HYDROCODONE-ACETAMINOPHEN 38180437357 No Longer Active Alina Castaneda MD PhD Active METFORMIN HCL ER 500 MG [id number]-DXJ Take three tablets by mouth everyday METFORMIN HCL 61223659766 Active Marvel MENDOZAP Active DOXEPIN HCL 10 MG CAPS Take 1 tablet by mouth daily DOXEPIN HCL 23473151422 No Longer Active Salina ROJAS Active NAVANE 10 MG CAPS 1/2 tablet twice a day THIOTHIXENE No Longer Active Salina ROBBINS Active CYCLOBENZAPRINE HCL 10 MG TABS 1/2 tablet by mouth every 8 hours as needed for muscle spasms CYCLOBENZAPRINE HCL 91889360747 No Longer Active Alina Castaneda MD PhD Active BACTROBAN 2 % CREAM apply to ear and nose twice daily MUPIROCIN CALCIUM 35282482339 No Longer Active Alina Castaneda MD PhD Active HYDROCODONE-ACETAMINOPHEN 5-325 MG TABS take one tablet by mouth every four hours as needed for pain HYDROCODONE-ACETAMINOPHEN 27365544980 No Longer Active Alina Castaneda MD PhD Active ZOLPIDEM TARTRATE 10 MG TABS take at bedtime ZOLPIDEM TARTRATE 44046801272 Active Alina Castaneda MD PhD Active ZYPREXA 5 MG TABS take one tablet by mouth every evening OLANZAPINE 65279646862 No Longer Active Alina Castaneda MD PhD Active ALBUTEROL SULFATE 0.083 % NEBU SOLN one vial per nebulizer TID and PRN cough/ soa ALBUTEROL SULFATE 70340790733 No Longer Active Alina Castaneda MD PhD Active GUAIFENESIN 600 MG [id number]-ODV 1 tablet by mouth twice daily if needed for cough GUAIFENESIN 30253851787 No Longer Active [employer] Active AZITHROMYCIN 500 MG SOLR 1 po q day AZITHROMYCIN 91228004282 No Longer Active Alina Castaneda MD PhD Active METOPROLOL SUCCINATE 100 MG [id number]-LQH 1 by mouth daily for blood pressure METOPROLOL SUCCINATE 49473031782 Active Alina Castaneda MD PhD Active PROMETHAZINE-CODEINE 6.25-10 MG/5ML SYRP 1 tsp po q 6 hours prn cough PROMETHAZINE-CODEINE 86352276381 No Longer Active Alina Castaneda MD PhD Active CEFDINIR 300 MG CAPS by mouth twice a day CEFDINIR 32582658720 No Longer Active Alina Castaneda MD PhD Active METFORMIN HCL 500 MG MO11X-DZA Take 3 tablets by mouth everyday METFORMIN HCL 01646407684 No Longer Active Alina Castaneda MD PhD Active LEVEMIR 100 UNIT/ML SOLN 90 units SQ qHS INSULIN DETEMIR 16329719608 No Longer Active Marvel MARROQUIN Active TOPROL XL 100 MG [id number]-IOP 1 @ HS METOPROLOL SUCCINATE 60337595088 No Longer Active Marvel MARROQUIN Active ALLOPURINOL 300 MG TABS Take one by mouth daily ALLOPURINOL 01866204559 Active Alina Castaneda MD PhD Active ZYPREXA 10 MG TABS Take one by mouth daily OLANZAPINE 79370663902 No Longer Active Alina Castaneda MD PhD Active NOVOLOG 100 UNIT/ML SOLN 40 units with every meal INSULIN ASPART 20949638012 No Longer Active Alina Castaneda MD PhD Active VERAPAMIL HCL CR 120 MG TAB CR 1 qPM VERAPAMIL HCL 20873567556 No Longer Active Salina Ervinford [facility] Active ZYPREXA 15 MG TABS Take 1 tablet by mouth daily OLANZAPINE 05929875136 No Longer Active Marvel MARROQUIN Active LISINOPRIL 20 MG TABS 1 BID LISINOPRIL 27038020438 Active Mao Rodriguez MD Active ALBUTEROL SULFATE (2.5 MG/3ML) 0.083% NEBU 1 neb tid and prn cough ALBUTEROL SULFATE 22403532420 No Longer Active Alina Castaneda MD PhD Active FLUVOXAMINE MALEATE 100 MG TABS Take one (1) tablet by mouth am, 1/2 at noon, 1 pm FLUVOXAMINE MALEATE 69545088087 Active Alina Castaneda MD PhD Active TRAVATAN Z 0.004 % SOLN 1 gtt each eye daily TRAVOPROST 92562868735 Active Alina Mendez Active LANTUS 100 UNIT/ML SOLN 60 units sq q hs INSULIN GLARGINE 65361804730 No Longer Active lAina Mendez Active UROXATRAL 10 MG [id number] Take 1 tablet by mouth daily ALFUZOSIN HCL 82928919882 Active Tanya MARROQUIN Active ALBUTEROL SULFATE (2.5 MG/3ML) 0.083% NEBU 1 neb tid and prn cough ALBUTEROL SULFATE (2.5 MG/3ML) 0.083% NEBU 623276 ALBUTEROL SULFATE Inactive ZYPREXA 15 MG TABS Take 1 tablet by mouth daily ZYPREXA 15 MG TABS 619418 OLANZAPINE Inactive VERAPAMIL HCL CR 120 MG TAB CR 1 qPM VERAPAMIL HCL CR 120 MG TAB CR VERAPAMIL HCL Inactive ZYPREXA 10 MG TABS Take one by mouth daily ZYPREXA 10 MG TABS 572908 OLANZAPINE Inactive TOPROL XL 100 MG [id number] 1 @ HS TOPROL XL 100 MG PT90O-TAT METOPROLOL SUCCINATE Inactive LEVEMIR 100 UNIT/ML SOLN 90 units SQ qHS LEVEMIR 100 UNIT/ML SOLN INSULIN DETEMIR Inactive PROMETHAZINE-CODEINE 6.25-10 MG/5ML SYRP 1 tsp po q 6 hours prn cough PROMETHAZINE-CODEINE 6.25-10 MG/5ML SYRP 516977 PROMETHAZINE- CODEINE Inactive GUAIFENESIN 600 MG LL36L-VGG 1 tablet by mouth twice daily if needed for cough GUAIFENESIN 600 MG ZS22U-JGY GUAIFENESIN Inactive ALBUTEROL SULFATE 0.083 % NEBU SOLN one vial per nebulizer TID and PRN cough/ soa ALBUTEROL SULFATE 0.083 % NEBU SOLN 348177 ALBUTEROL SULFATE Inactive ZYPREXA 5 MG TABS take one tablet by mouth every evening ZYPREXA 5 MG TABS 218119 OLANZAPINE Inactive HYDROCODONE-ACETAMINOPHEN 5-325 MG TABS take one tablet by mouth every four hours as needed for pain HYDROCODONE-ACETAMINOPHEN 5-325 MG TABS 116040 HYDROCODONE-ACETAMINOPHEN Inactive BACTROBAN 2 % CREAM apply to ear and nose twice daily BACTROBAN 2 % CREAM 868693 MUPIROCIN CALCIUM Inactive CYCLOBENZAPRINE HCL 10 MG TABS 1/2 tablet by mouth every 8 hours as needed for muscle spasms CYCLOBENZAPRINE HCL 10 MG TABS 223124 CYCLOBENZAPRINE HCL Inactive NAVANE 10 MG CAPS 1/2 tablet twice a day NAVANE 10 MG CAPS THIOTHIXENE Inactive DOXEPIN HCL 10 MG CAPS Take 1 tablet by mouth daily DOXEPIN HCL 10 MG CAPS 1154548 DOXEPIN HCL Inactive HYDROCODONE-ACETAMINOPHEN 7.5-325 MG TABS 1 four times a day as needed for pain HYDROCODONE-ACETAMINOPHEN 7.5-325 MG TABS 638192 HYDROCODONE-ACETAMINOPHEN Inactive NIACIN CR 500 MG CR-TABS 2 qHS NIACIN CR 500 MG CR- TABS NIACIN Inactive ORPHENADRINE CITRATE ER 100 MG [id number] 1 every 12 hr. as needed ORPHENADRINE CITRATE ER 100 MG LZ30Y-WIH ORPHENADRINE CITRATE Inactive ACETAMINOPHEN 500 MG TABS 2 Q 6 hr. PRN ACETAMINOPHEN 500 MG TABS 329277 ACETAMINOPHEN Inactive SAPHRIS 5 MG SUBL by mouth twice a day SAPHRIS 5 MG SUBL ASENAPINE MALEATE Inactive NIACIN ER 500 MG CR-TABS 4 qHS (for triglycerides) NIACIN ER 500 MG CR-TABS NIACIN Inactive IBUPROFEN 200 MG TABS 1 Q 6 hr. PRN IBUPROFEN 200 MG TABS 672777 IBUPROFEN Inactive FLUTICASONE PROPIONATE 50 MCG/ACT SUSP 2 sprays each nostril qDay x 30 days FLUTICASONE PROPIONATE 50 MCG/ACT SUSP 866392 FLUTICASONE PROPIONATE Inactive EQL TRUETEST TEST STRP Test blood sugar TID EQL TRUETEST TEST STRP GLUCOSE BLOOD Inactive TERESE CONTOUR TEST STRP monitor blood sugars 3x/day TERESE CONTOUR TEST STRP GLUCOSE BLOOD Inactive DETROL LA 4 MG IR40S-VRG Take 1 tablet by mouth daily DETROL LA 4 MG AR93P-VJO TOLTERODINE TARTRATE Inactive CEFDINIR 300 MG CAPS by mouth twice a day CEFDINIR 300 MG CAPS 624989 CEFDINIR Inactive AZITHROMYCIN 500 MG SOLR 1 po q day AZITHROMYCIN 500 MG SOLR 733574 AZITHROMYCIN Inactive AMOXICILLIN 500 MG CAPS 2 po BID x 10 days AMOXICILLIN 500 MG CAPS 836113 AMOXICILLIN Inactive Immunizations Vaccine Administration Date Value [...] Fluvirin, Fluarix, Agriflu(>=18 yo)) Fluzone (>3 yrs.) [[id number]] Influenza, seasonal, injectable pneumococcal immunization administered Pneumovax [...] E&M - 8867-4 99 /min Heart rate Diagnostic Results Date Name Value Unit Range Description Lab Report: Basic Metabolic Panel, HGBA1C - Chemistry sodium, serum 130 mmol/L 706-525 5664/06/09 potassium, serum 4.0 mmol/L 3.5-5.2 chloride, serum [...] 6.0 mg/dL 2.6-7.2 sodium, serum 130 mmol/L 014-721 1162/05/01 potassium, serum 5.2 mmol/L 3.5-5.2 chloride, serum [...] 0.40 mg/dL 0.00-1.00 cholesterol, serum 151 mg/dL 546-326 3618/05/01 triglyceride, serum, fasting 356 mg/dL 30-200 HDL [...] Report: Comp. Metabolic Panel, HGBA1C - Chemistry urea nitrogen, blood 10 mg/dL 7-18 creatinine, serum 1.00 mg/dL 0.60-1.30 alanine aminotransferase (SGPT), serum 137 U/L 12-78 aspartate aminotransferase (SGOT), serum 58 U/L 15-37 alkaline phosphatase, serum 64 U/L 50-136 calcium, serum 7.8 mg/dL 8.5-10.1 bilirubin, serum, total 0.50 mg/dL 0.00-1.00 hemoglobin A1C, blood, as % of total hemoglobin 6.9 % 4.3-6.0 sodium, serum 126 mmol/L 377-935 2160/02/26 potassium, serum 4.8 mmol/L 3.5-5.2 chloride, serum 92 mmol/L 98-107 carbon dioxide, venous blood 27.7 mmol/L 21.0-32.0 blood glucose 229 mg/dL 65-110 Lab Report: HGBA1C - Chemistry hemoglobin A1C, blood, as % of total hemoglobin 7.3 % 4.3-6.0 Lab Report: Lipid Panel, HEPATIC PANEL, CPK, LDL DIRECT - Chemistry aspartate aminotransferase (SGOT), serum 37 U/L 15-37 alanine aminotransferase (SGPT), serum 105 U/L 12-78 bilirubin, serum, total 0.31 mg/dL 0.00-1.00 alkaline phosphatase, serum 72 U/L 50-136 LDL cholesterol, serum 77.00 mg/dL 5.00-130.00 HDL cholesterol, serum 18 mg/dL 32-96 triglyceride, serum, fasting 489 mg/dL 30-200 cholesterol, serum 158 mg/dL 130-200 Office Visit: Diabetes Visit - Chemistry cholesterol, [...] mg/dL Encounters Code Encounter Date Provider Facility CPT-00188 Level 3 Est. Patient 13:19:10 CDT [facility] CPT-93089 Level 3 Est. Patient 08:20:05 CDT Alina Castaneda MD PhD [facility] CPT-54638 Level 3 Est. Patient 15:17:18 CDT Alina Castaneda MD PhD [facility] CPT-79959 Level 3 Est. Patient 14:25:36 [employer] [facility] CPT-28777 Level 3 Est. Patient 10:09:15 [employer] [facility] Level 3 Est. Patient 21:28:43 CDT [id number] Level 3 Est. [facility] 4 Est. Patient 19:08:12 CDT Alina Castaneda MD [facility] [phone] Level 3 Est. Patient 15:06:39 [facility] Level 4 Est. Patient 17:48:15 CDT Ailna Castaneda MD [facility] [phone] Level 3 Est. Patient 14:53:49 CDT lAina Castaneda MD [facility] [phone] Level 3 Est. Patient 09:35:16 CDT Alina Castaneda MD [facility] 2001-60081 Level 3 Est. Patient 12:23:22 CDT Alina Castaneda MD [facility] [id number] Level 3 Est. Patient 16:19:15 CDT Alina Castaneda MD [facility] [id number] Level 3 Est. Patient 21:39:56 [employer] Alina Castaneda MD [facility] [id number] Level 4 Est. Patient 14:12:56 [employer] Alina Castaneda MD [facility] [phone] Level 2 Est. Patient 15:34:57 [employer] Alina Castaneda MD [facility] [phone] Level 3 Est. Patient 12:17:04 [employer] Alina Castaneda MD [facility] [id number] Level 3 Est. Patient 09:18:18 [employer] [facility]-95224 Level 2 Est. Patient 21:50:24 CDT Alina Castaneda MD [facility] [phone] Level 3 Est. Patient 09:17:28 CDT [facility]-67310 Level 4 Est. Patient 18:54:02 CDT Alina Castaneda MD [facility]35256 Level 3 Est. Patient 10:47:10 CDT Alina Castaneda MD [facility]63725 Level 3 Est. Patient 09:22:20 CDT [facility]-54277 Level 3 Est. Patient 16:39:43 CDT [facility]-34684 Level 3 Est. Patient 16:05:16 CDT Alina Castaneda MD [facility] [phone] Level 3 Est. Patient 00:29:15 CDT Alina Castaneda MD [facility]26319 Level 3 Est. Patient 10:49:22 [employer] [facility]-17548 Level 3 Est. Patient 21:30:19 [employer] Alina Castaneda MD [facility]80020 Level 4 Est. Patient 17:04:11 [employer] [facility]-02872 Level 3 Est. Patient 15:34:11 [employer] [facility]78099 Level 2 Est. Patient 12:51:58 [employer] Alina Castaneda MD [facility]22178 Level 3 Est. Patient 13:20:01 [employer] Alina Castaneda MD PhD [facility] CPT-98921 Level 3 Est. Patient 09:23:35 CDT Alina Castaneda MD PhD [facility] Procedures Code Procedure Name Date Entry Date Standard Description CPT-66384 Administration single or combination vaccine inc oral 11 :49:51 CDT CPT-36783 Pneumovax 11:49:51 CDT CPT-78817 Ribs unilateral 2V 12:37:22 [employer] CPT-85884 Chest 2V Frontal and Lat 17:15:26 CDT CPT-12622 Abx/Therapy Injection 18:54:02 CDT CPT-J0696 Rocephin 1000 mg (Ceftriaxone) 16:00:32 CDT CPT-21448 Chest 2V Frontal and Lat 15:26:45 CDT CPT-86023 Chest 2V Frontal and Lat 10:23:27 CDT CPT-89601 Venipuncture Draw Fee 10:11:00 CDT CPT-64460 Administration single or combination vaccine inc oral 11 :56:38 CDT CPT-28439 Influenza split virus > age 3 11:56:38 CDT CPT-49452 Venipuncture Draw Fee 08:49:54 [employer] CPT-12448 EKG Trac and Interp 17:54:19 [employer]
--- OUTSIDE RECORDS SUMMARY | 2018-07-02 20:30 | XMS REPORT | Clinical Summary ---
[...] evening for chronic pain control MORPHINE SULFATE 17858206472 Active Alina Castaneda MD PhD Active LATUDA 80 MG TABS 1 tab by mouth every evening LURASIDONE HCL 24448788628 Active Alina Castaneda MD PhD Active UROXATRAL 10 MG [id number] Take 1 tablet by mouth daily ALFUZOSIN HCL 97824966893 No Longer Active Alina Castaneda MD PhD Active THIOTHIXENE 5 MG CAPS by mouth twice a day THIOTHIXENE 86275863826 No Longer Active Alina Castaneda MD PhD Active ZYPREXA 7.5 MG TABS 1 at HS OLANZAPINE 45585069674 No Longer Active Alina Castaneda MD PhD Active HUMALOG 100 UNIT/ML SOLN Take 20 units with breakfast, 10u with lunch and suppetr. INSULIN LISPRO (HUMAN) 01255341983 Active Maljohn Ziglari [employer]ER FEEDER Active LEVEMIR 100 UNIT/ML SOLN Take 70 u at 7-8pm INSULIN DETEMIR 79844087881 Active Marvel Ziglari [employer] FEEDER Active BD INSULIN SYRINGE 28G X 1/2" 1 ML MISC 1 four times per day INSULIN SYRINGE-NEEDLE U-100 67964548883 Active Marvel Mackenzieglari [employer] FEEDER Active CYCLOBENZAPRINE HCL 10 MG TABS 1 tablet by mouth three times daily, scheduled CYCLOBENZAPRINE HCL 45032208198 Active Alina Castaneda MD PhD Active TOLTERODINE TARTRATE 2 MG TABS 1 pill twice daily, for bladder TOLTERODINE TARTRATE 88307942002 Active Alina Castaneda MD PhD Active DETROL LA 4 MG [id number] Take 1 tablet by mouth daily TOLTERODINE TARTRATE 00160578149 No Longer Active Alina Castaneda MD PhD Active HYDROCODONE-ACETAMINOPHEN 5-325 MG TABS 2 tabs by mouth three times daily as needed for pain HYDROCODONE-ACETAMINOPHEN 48752810023 Active Alina Castaneda MD PhD Active TERESE CONTOUR TEST STRP monitor blood sugars 3x/day GLUCOSE BLOOD 43320298794 No Longer Active Alina Castaneda MD PhD Active EQL TRUETEST TEST STRP Test blood sugar TID GLUCOSE BLOOD 99639371334 No Longer Active Alina Castaneda MD PhD Active FLUTICASONE PROPIONATE 50 MCG/ACT SUSP 2 sprays each nostril qDay x 30 days FLUTICASONE PROPIONATE 79824471627 No Longer Active Alina Castaneda MD PhD Active IBUPROFEN 200 MG TABS 1 Q 6 hr. PRN IBUPROFEN 85406481868 No Longer Active Alina Castaneda MD PhD Active NIACIN ER 500 MG CR-TABS 4 qHS (for triglycerides) NIACIN 27121978681 No Longer Active Alina Castaneda MD PhD Active TRUETEST TEST STRP check sugars 4x/day GLUCOSE BLOOD 29800065321 Active Alina Castaneda MD PhD Active ALFUZOSIN HCL ER 10 MG [id number] 1 tablet daily ALFUZOSIN HCL 74129739393 Active Vanessa Hickey MD Active CLONAZEPAM 1 MG TABS 1 pill by mouth three times daily CLONAZEPAM 75888762806 Active Alina Castaneda MD PhD Active LOVAZA 1 GM CAPS 4 daily (for triglycerides) FZAHB-2-INGM ETHYL ESTERS 11574999004 Active Alina Castaneda MD PhD Active SAPHRIS 5 MG SUBL by mouth twice a day ASENAPINE MALEATE 90439157620 No Longer Active Marvel MENDOZAP Active ACETAMINOPHEN 500 MG TABS 2 Q 6 hr. PRN ACETAMINOPHEN 61376387918 No Longer Active Maljohn Mackenzieglari [employer]EDER Active VERAPAMIL HCL ER 120 MG [id number] 1 pill by mouth twice a day, for headache prevention/control VERAPAMIL HCL 49479110770 Active Alina Castaneda MD PhD Active ORPHENADRINE CITRATE ER 100 MG [id number]-EKP 1 every 12 hr. as needed ORPHENADRINE CITRATE 04471800230 No Longer Active Alina Castaneda MD PhD Active NIACIN CR 500 MG CR-TABS 2 qHS NIACIN 66116042795 No Longer Active Alina Castaneda MD PhD Active AMOXICILLIN 500 MG CAPS 2 po BID x 10 days AMOXICILLIN 89957915285 No Longer Active Alina Castaneda MD PhD Active HYDROCODONE-ACETAMINOPHEN 7.5-325 MG TABS 1 four times a day as needed for pain HYDROCODONE-ACETAMINOPHEN 41523859706 No Longer Active Alina Castaneda MD PhD Active METFORMIN HCL ER 500 MG [id number]-WXO Take three tablets by mouth everyday METFORMIN HCL 69542635845 Active Alina Castaneda MD PhD Active DOXEPIN HCL 10 MG CAPS Take 1 tablet by mouth daily DOXEPIN HCL 99298513157 No Longer Active Salina Han RMA Active NAVANE 10 MG CAPS 1/2 tablet twice a day THIOTHIXENE No Longer Active Salina Han RMA Active CYCLOBENZAPRINE HCL 10 MG TABS 1/2 tablet by mouth every 8 hours as needed for muscle spasms CYCLOBENZAPRINE HCL 87090017110 No Longer Active Alina Castaneda MD PhD Active BACTROBAN 2 % CREAM apply to ear and nose twice daily MUPIROCIN CALCIUM 39512931172 No Longer Active Alina Castaneda MD PhD Active HYDROCODONE-ACETAMINOPHEN 5-325 MG TABS take one tablet by mouth every four hours as needed for pain HYDROCODONE-ACETAMINOPHEN 27369897065 No Longer Active Alina Castaneda MD PhD Active ZOLPIDEM TARTRATE 10 MG TABS take at bedtime ZOLPIDEM TARTRATE 81135299729 Active Alina Castaneda MD PhD Active ZYPREXA 5 MG TABS take one tablet by mouth every evening OLANZAPINE 50992672280 No Longer Active Alina Castaneda MD PhD Active ALBUTEROL SULFATE 0.083 % NEBU SOLN one vial per nebulizer TID and PRN cough/ soa ALBUTEROL SULFATE 76882176229 No Longer Active Alina Castaneda MD PhD Active GUAIFENESIN 600 MG NS93J-JDG 1 tablet by mouth twice daily if needed for cough GUAIFENESIN 75901949518 No Longer Active Marvel Charles [employer]ER FEEDER Active AZITHROMYCIN 500 MG SOLR 1 po q day AZITHROMYCIN 66256266632 No Longer Active Alina Castaneda MD PhD Active METOPROLOL SUCCINATE 100 MG NT89I-KEK 1 by mouth daily for blood pressure METOPROLOL SUCCINATE 77386080545 Active Alina Castaneda MD PhD Active PROMETHAZINE-CODEINE 6.25-10 MG/5ML SYRP 1 tsp po q 6 hours prn cough PROMETHAZINE-CODEINE 65284321696 No Longer Active Alina Castaneda MD PhD Active CEFDINIR 300 MG CAPS by mouth twice a day CEFDINIR 90878315474 No Longer Active Alina Castaneda MD PhD Active METFORMIN HCL 500 MG PN39A-BIU Take 3 tablets by mouth everyday METFORMIN HCL 25345359178 No Longer Active Alina Castaneda MD PhD Active LEVEMIR 100 UNIT/ML SOLN 90 units SQ qHS INSULIN DETEMIR 81037602006 No Longer Active Marvel MARROQUIN Active TOPROL XL 100 MG JJ83S-MZU 1 @ HS METOPROLOL SUCCINATE 74754285816 No Longer Active Marvel MARROQUIN Active ALLOPURINOL 300 MG TABS Take one by mouth daily ALLOPURINOL 17154741693 Active Alina Castaneda MD PhD Active ZYPREXA 10 MG TABS Take one by mouth daily OLANZAPINE 59650825434 No Longer Active Alina Castaneda MD PhD Active NOVOLOG 100 UNIT/ML SOLN 40 units with every meal INSULIN ASPART 52158008997 No Longer Active Alina Castaneda MD PhD Active VERAPAMIL HCL CR 120 MG TAB CR 1 qPM VERAPAMIL HCL 15202960607 No Longer Active Salina Han [facility] Active ZYPREXA 15 MG TABS Take 1 tablet by mouth daily OLANZAPINE 27876532489 No Longer Active Marvel MARROQUIN Active LISINOPRIL 20 MG TABS 1 BID LISINOPRIL 36819542957 Active Alina Castaneda MD PhD Active ALBUTEROL SULFATE (2.5 MG/3ML) 0.083% NEBU 1 neb tid and prn cough ALBUTEROL SULFATE 25236424157 No Longer Active Alina Castaneda MD PhD Active FLUVOXAMINE MALEATE 100 MG TABS Take one (1) tablet by mouth am, 1/2 at noon, 1 pm FLUVOXAMINE MALEATE 08777256902 Active Alina Castaneda MD PhD Active TRAVATAN Z 0.004 % SOLN 1 gtt each eye daily TRAVOPROST 06927217497 Active CRYSTAL Suarez Active LANTUS 100 UNIT/ML SOLN 60 units sq q hs INSULIN GLARGINE 75954096856 No Longer Active CRYSTAL Suarez Active ALBUTEROL SULFATE (2.5 MG/3ML) 0.083% NEBU 1 neb tid and prn cough ALBUTEROL SULFATE (2.5 MG/3ML) 0.083% NEBU 494943 ALBUTEROL SULFATE Inactive ZYPREXA 15 MG TABS Take 1 tablet by mouth daily ZYPREXA 15 MG TABS 264955 OLANZAPINE Inactive VERAPAMIL HCL CR 120 MG TAB CR 1 qPM VERAPAMIL HCL CR 120 MG TAB CR VERAPAMIL HCL Inactive ZYPREXA 10 MG TABS Take one by mouth daily ZYPREXA 10 MG TABS 537328 OLANZAPINE Inactive TOPROL XL 100 MG [id number] 1 @ HS TOPROL XL 100 MG VL12K-VDD METOPROLOL SUCCINATE Inactive LEVEMIR 100 UNIT/ML SOLN 90 units SQ qHS LEVEMIR 100 UNIT/ML SOLN INSULIN DETEMIR Inactive PROMETHAZINE-CODEINE 6.25-10 MG/5ML SYRP 1 tsp po q 6 hours prn cough PROMETHAZINE-CODEINE 6.25-10 MG/5ML SYRP 188570 PROMETHAZINE- CODEINE Inactive GUAIFENESIN 600 MG GH68G-DYB 1 tablet by mouth twice daily if needed for cough GUAIFENESIN 600 MG SC78G-TMR GUAIFENESIN Inactive ALBUTEROL SULFATE 0.083 % NEBU SOLN one vial per nebulizer TID and PRN cough/ soa ALBUTEROL SULFATE 0.083 % NEBU SOLN 931604 ALBUTEROL SULFATE Inactive ZYPREXA 5 MG TABS take one tablet by mouth every evening ZYPREXA 5 MG TABS 721231 OLANZAPINE Inactive HYDROCODONE-ACETAMINOPHEN 5-325 MG TABS take one tablet by mouth every four hours as needed for pain HYDROCODONE-ACETAMINOPHEN 5-325 MG TABS 138065 HYDROCODONE-ACETAMINOPHEN Inactive BACTROBAN 2 % CREAM apply to ear and nose twice daily BACTROBAN 2 % CREAM 165086 MUPIROCIN CALCIUM Inactive CYCLOBENZAPRINE HCL 10 MG TABS 1/2 tablet by mouth every 8 hours as needed for muscle spasms CYCLOBENZAPRINE HCL 10 MG TABS 127785 CYCLOBENZAPRINE HCL Inactive NAVANE 10 MG CAPS 1/2 tablet twice a day NAVANE 10 MG CAPS THIOTHIXENE Inactive DOXEPIN HCL 10 MG CAPS Take 1 tablet by mouth daily DOXEPIN HCL 10 MG CAPS 4116255 DOXEPIN HCL Inactive HYDROCODONE-ACETAMINOPHEN 7.5-325 MG TABS 1 four times a day as needed for pain HYDROCODONE-ACETAMINOPHEN 7.5-325 MG TABS 470020 HYDROCODONE-ACETAMINOPHEN Inactive NIACIN CR 500 MG CR-TABS 2 qHS NIACIN CR 500 MG CR- TABS NIACIN Inactive ORPHENADRINE CITRATE ER 100 MG [id number]-CRA 1 every 12 hr. as needed ORPHENADRINE CITRATE ER 100 MG CG60G-MAL ORPHENADRINE CITRATE Inactive ACETAMINOPHEN 500 MG TABS 2 Q 6 hr. PRN ACETAMINOPHEN 500 MG TABS 281056 ACETAMINOPHEN Inactive SAPHRIS 5 MG SUBL by mouth twice a day SAPHRIS 5 MG SUBL ASENAPINE MALEATE Inactive NIACIN ER 500 MG CR-TABS 4 qHS (for triglycerides) NIACIN ER 500 MG CR-TABS NIACIN Inactive IBUPROFEN 200 MG TABS 1 Q 6 hr. PRN IBUPROFEN 200 MG TABS 222407 IBUPROFEN Inactive FLUTICASONE PROPIONATE 50 MCG/ACT SUSP 2 sprays each nostril qDay x 30 days FLUTICASONE PROPIONATE 50 MCG/ACT SUSP 704528 FLUTICASONE PROPIONATE Inactive EQL TRUETEST TEST STRP Test blood sugar TID EQL TRUETEST TEST STRP GLUCOSE BLOOD Inactive TERESE CONTOUR TEST STRP monitor blood sugars 3x/day TERESE CONTOUR TEST STRP GLUCOSE BLOOD Inactive DETROL LA 4 MG DR39T-MPG Take 1 tablet by mouth daily DETROL LA 4 MG [id number] TOLTERODINE TARTRATE Inactive ZYPREXA 7.5 MG TABS 1 at HS ZYPREXA 7.5 MG TABS 613512 OLANZAPINE Inactive THIOTHIXENE 5 MG CAPS by mouth twice a day THIOTHIXENE 5 MG CAPS 865815 THIOTHIXENE Inactive UROXATRAL 10 MG YL92S-PFI Take 1 tablet by mouth daily UROXATRAL 10 MG QN53P-BJS ALFUZOSIN HCL Inactive CEFDINIR 300 MG CAPS by mouth twice a day CEFDINIR 300 MG CAPS 628249 CEFDINIR Inactive AZITHROMYCIN 500 MG SOLR 1 po q day AZITHROMYCIN 500 MG SOLR 991097 AZITHROMYCIN Inactive AMOXICILLIN 500 MG CAPS 2 po BID x 10 days AMOXICILLIN 500 MG CAPS 077934 AMOXICILLIN Inactive Immunizations Vaccine Administration Date Value [...] Fluvirin, Fluarix, Agriflu(>=18 yo)) Fluzone (>3 yrs.) [[id number]] Influenza, seasonal, injectable pneumococcal immunization administered Pneumovax [...] HGBA1C - Chemistry sodium, serum 130 mmol/L 119-574 6465/06/09 potassium, serum 4.0 mmol/L 3.5-5.2 chloride, serum [...] 6.0 mg/dL 2.6-7.2 sodium, serum 130 mmol/L 361-836 9169/05/01 potassium, serum 5.2 mmol/L 3.5-5.2 chloride, serum [...] 0.40 mg/dL 0.00-1.00 cholesterol, serum 151 mg/dL 484-924 4619/05/01 triglyceride, serum, fasting 356 mg/dL 30-200 HDL [...] HGBA1C - Chemistry sodium, serum 126 mmol/L 763-298 3896/02/26 potassium, serum 4.8 mmol/L 3.5-5.2 chloride, serum [...] mg/dL Encounters Code Encounter Date Provider Facility CPT-59104 Level 3 Est. Patient 19:17:33 CDT Alina Castaneda MD PhD [facility] CPT-88368 Level 3 Est. Patient 13[facility]19:[facility] CPT-79129 Level 3 Est. Patient 08:20:05 CDT Alina Castaneda MD PhD [facility] CPT-86963 Level 3 Est. Patient 15:17:18 CDT Alina Castaneda MD PhD [facility] CPT-59759 Level 3 Est. Patient 14:25:36 JAVA ARCHITECT Marvel Charles [facility] CPT-32579 Level 3 Est. Patient 10:09:15 [facility] CPT-06924 Level 3 Est. Patient 21:28:43 CDT Alina Castaneda MD PhD [facility]-59824 Level 3 Est. [facility] 15:20:11 [facility] CPT-50114 Level 4 Est. Patient 19:08:12 CDT Alina Castaneda MD [facility]-94676 Level 3 Est. Patient 15:06:39 CDT Marvel Charles [facility]-78483 Level 4 Est. Patient 17:48:15 CDT Alina Castaneda MD [facility]-91565 Level 3 Est. Patient 14:53:49 CDT Alina Castaneda MD [facility]-94912 Level 3 Est. Patient 09:35:16 CDT Alina Castaneda MD [facility]-48291 Level 3 Est. Patient 12:23:22 CDT Alina Castaneda MD [facility]-44740 Level 3 Est. Patient 16:19:15 CDT Alina Castaneda MD [facility]-41051 Level 3 Est. Patient 21:39:56 JAVA ARCHITECT Alina Castaneda MD [facility]-05687 Level 4 Est. Patient 14:12:56 JAVA ARCHITECT Alina Castaneda MD [facility]-50043 Level 2 Est. Patient 15:34:57 JAVA ARCHITECT Alina Castaneda MD [facility]-44420 Level 3 Est. Patient 12:17:04 JAVA ARCHITECT Alina Castaneda MD [facility]-60660 Level 3 Est. Patient 09:18:18 JAVA ARCHITECT Marvel Charles [facility]-67907 Level 2 Est. Patient 21:50:24 CDT Alina Castaneda MD [facility]-14067 Level 3 Est. Patient 09:17:28 CDT Marvel Charles [facility]-91679 Level 4 Est. Patient 18:54:02 CDT Alina Castaneda MD [facility] CPT-95878 Level 3 Est. Patient 10:47:10 CDT Alina Castaneda MD [facility]-75124 Level 3 Est. Patient 09:22:20 CDT [facility] CPT-23297 Level 3 Est. Patient 16:39:43 CDT [facility] Araceli [facility] CPT-56704 Level 3 Est. Patient 16:05:16 CDT Alina Castaneda MD [facility]-18262 Level 3 Est. Patient 00:29:15 CDT Alina Castaneda MD [facility]-52120 Level 3 Est. Patient 10:49:22 JAVA ARCHITECT [facility] Ar[facility] CPT-31503 Level 3 Est. Patient 21:30:19 JAVA ARCHITECT Alina Castaneda MD [facility] CPT-73823 Level 4 Est. Patient 17:04:11 JAVA ARCHITECT [facility] C[facility]-66887 Level 3 Est. Patient 15:34:11 JAVA ARCHITECT Marvel Araceli [facility] CPT-45549 Level 2 Est. Patient 12:51:58 JAVA ARCHITECT Alina Castaneda MD PhD [facility] CPT-88298 Level 3 Est. Patient 13:20:01 JAVA ARCHITECT Alina Castnaeda MD [facility] CPT-03081 Level 3 Est. Patient 09:23:35 CDT Alina Castaneda MD [facility] Procedures Code Procedure Name Date Entry Date Standard Description CPT-74343 Administration single or combination vaccine inc oral 11 :49:51 CDT CPT-52719 Pneumovax 11:49:51 CDT CPT-80483 Ribs unilateral 2V 12:37:22 JAVA ARCHITECT CPT-75730 Chest 2V Frontal and Lat 17:15:26 CDT CPT-26884 Abx/Therapy Injection 18:54:02 CDT CPT-J0696 Rocephin 1000 mg (Ceftriaxone) 16:00:32 CDT CPT-58325 Chest 2V Frontal and Lat 15:26:45 CDT CPT-32018 Chest 2V Frontal and Lat 10:23:27 CDT CPT-62979 Venipuncture Draw Fee 10:11:00 CDT CPT-77078 Administration single or combination vaccine inc oral 11 :56:38 CDT CPT-85983 Influenza split virus > age 3 11:56:38 CDT CPT-55512 Venipuncture Draw Fee 08:49:54 JAVA ARCHITECT CPT-15344 EKG Trac and Interp 17:54:19 JAVA ARCHITECT
--- OUTSIDE RECORDS SUMMARY | 2018-07-02 20:31 | XMS REPORT | Clinical Summary ---
Author Author Admin, TERELL Organization [facility] Address Unknown Phone Allergies, Adverse Reactions, [...] four times per day INSULIN SYRINGE-NEEDLE U-100 [id number] Active Alina Castaneda MD PhD Active CYCLOBENZAPRINE HCL 10 MG TABS 1 tablet by mouth three times daily, scheduled CYCLOBENZAPRINE HCL 90392785959 Active Alina Castaneda MD PhD Active HUMALOG 100 UNIT/ML SOLN take 40u with each meal INSULIN LISPRO (HUMAN) 47251900800 Active Alina Castaneda MD PhD Active TOLTERODINE TARTRATE 2 MG TABS 1 pill twice daily, for bladder TOLTERODINE TARTRATE 15482906195 Active Alina Castaneda MD PhD Active DETROL LA 4 MG [id number] Take 1 tablet by mouth daily TOLTERODINE TARTRATE 09794193606 No Longer Active Alina Castaneda MD PhD Active HYDROCODONE-ACETAMINOPHEN 5-325 MG TABS 2 tabs by mouth three times daily as needed for pain HYDROCODONE-ACETAMINOPHEN 64644813297 Active Alina Castaneda MD PhD Active TERESE CONTOUR TEST STRP monitor blood sugars 3x/day GLUCOSE BLOOD 55253089957 No Longer Active Alina Castaneda MD PhD Active EQL TRUETEST TEST STRP Test blood sugar TID GLUCOSE BLOOD 90408553575 No Longer Active Alina Castaneda MD PhD Active FLUTICASONE PROPIONATE 50 MCG/ACT SUSP 2 sprays each nostril qDay x 30 days FLUTICASONE PROPIONATE 36267475424 No Longer Active Alina Castaneda MD PhD Active IBUPROFEN 200 MG TABS 1 Q 6 hr. PRN IBUPROFEN 87909141578 No Longer Active Alina Castaneda MD PhD Active NIACIN ER 500 MG CR-TABS 4 qHS (for triglycerides) NIACIN 12096774344 No Longer Active Alina Castaneda MD PhD Active LEVEMIR 100 UNIT/ML SOLN Take 100u at 7-8pm INSULIN DETEMIR 46874238889 Active Alina Castaneda MD PhD Active TRUETEST TEST STRP check sugars 4x/day GLUCOSE BLOOD 56616066133 Active Alina Castaneda MD PhD Active ALFUZOSIN HCL ER 10 MG [id number] 1 tablet daily ALFUZOSIN HCL 13668948645 Active Vanessa Hickey MD Active CLONAZEPAM 1 MG TABS 1 pill by mouth three times daily CLONAZEPAM 88366254960 Active Alina Castaneda MD PhD Active LOVAZA 1 GM CAPS 4 daily (for triglycerides) [id number] ETHYL ESTERS 61958861505 Active Alina Castaneda MD PhD Active SAPHRIS 5 MG SUBL by mouth twice a day ASENAPINE MALEATE 04728808371 No Longer Active Maliheh Gurdeepglestela [facility] Active ACETAMINOPHEN 500 MG TABS 2 Q 6 hr. PRN ACETAMINOPHEN 20613535800 No Longer Active Marvel MENDOZAP Active VERAPAMIL HCL ER 120 MG [id number] 1 pill by mouth twice a day, for headache prevention/control VERAPAMIL HCL 73200064077 Active Alina Castaneda MD PhD Active ORPHENADRINE CITRATE ER 100 MG ZG29V-JKJ 1 every 12 hr. as needed ORPHENADRINE CITRATE 32823431429 No Longer Active Alina Castaneda MD PhD Active NIACIN CR 500 MG CR-TABS 2 qHS NIACIN 31509309852 No Longer Active Alina Castaneda MD PhD Active AMOXICILLIN 500 MG CAPS 2 po BID x 10 days AMOXICILLIN 14614772586 No Longer Active Alina Castaneda MD PhD Active ZYPREXA 7.5 MG TABS 1 at HS OLANZAPINE 04743451467 Active Alina Castaneda MD PhD Active THIOTHIXENE 5 MG CAPS by mouth twice a day THIOTHIXENE 64172508507 Active Alina Castaneda MD PhD Active HYDROCODONE-ACETAMINOPHEN 7.5-325 MG TABS 1 four times a day as needed for pain HYDROCODONE-ACETAMINOPHEN 48005668454 No Longer Active Alina Castaneda MD PhD Active METFORMIN HCL ER 500 MG [id number]-DPS Take three tablets by mouth everyday METFORMIN HCL 03941568172 Active Marvel MENDOZAP Active DOXEPIN HCL 10 MG CAPS Take 1 tablet by mouth daily DOXEPIN HCL 04493556957 No Longer Active Salina Han [facility] Active NAVANE 10 MG CAPS 1/2 tablet twice a day THIOTHIXENE No Longer Active Salina ROBBINS Active CYCLOBENZAPRINE HCL 10 MG TABS 1/2 tablet by mouth every 8 hours as needed for muscle spasms CYCLOBENZAPRINE HCL 32974640325 No Longer Active Alina Castaneda MD PhD Active BACTROBAN 2 % CREAM apply to ear and nose twice daily MUPIROCIN CALCIUM 36506830445 No Longer Active Alina Castaneda MD PhD Active HYDROCODONE-ACETAMINOPHEN 5-325 MG TABS take one tablet by mouth every four hours as needed for pain HYDROCODONE-ACETAMINOPHEN 71885378850 No Longer Active Alina Castaneda MD PhD Active ZOLPIDEM TARTRATE 10 MG TABS take at bedtime ZOLPIDEM TARTRATE 68360563109 Active Alina Castaneda MD PhD Active ZYPREXA 5 MG TABS take one tablet by mouth every evening OLANZAPINE 82159844510 No Longer Active Alina Castaneda MD PhD Active ALBUTEROL SULFATE 0.083 % NEBU SOLN one vial per nebulizer TID and PRN cough/ soa ALBUTEROL SULFATE 00712808085 No Longer Active Alina Castaneda MD PhD Active GUAIFENESIN 600 MG [id number]-YNQ 1 tablet by mouth twice daily if needed for cough GUAIFENESIN 97963930263 No Longer Active Marvel MARROQUIN Active AZITHROMYCIN 500 MG SOLR 1 po q day AZITHROMYCIN 77789820900 No Longer Active Alina Castaneda MD PhD Active METOPROLOL SUCCINATE 100 MG PM15S-VVY 1 by mouth daily for blood pressure METOPROLOL SUCCINATE 43744905923 Active Alina Castaneda MD PhD Active PROMETHAZINE-CODEINE 6.25-10 MG/5ML SYRP 1 tsp po q 6 hours prn cough PROMETHAZINE-CODEINE 02655427983 No Longer Active Alina Castaneda MD PhD Active CEFDINIR 300 MG CAPS by mouth twice a day CEFDINIR 21361222476 No Longer Active Alina Castaneda MD PhD Active METFORMIN HCL 500 MG NY20A-TOF Take 3 tablets by mouth everyday METFORMIN HCL 70733964239 No Longer Active Alina Castaneda MD PhD Active LEVEMIR 100 UNIT/ML SOLN 90 units SQ qHS INSULIN DETEMIR 01003993599 No Longer Active Marvel MARROQUIN Active TOPROL XL 100 MG [id number]-XUW 1 @ HS METOPROLOL SUCCINATE 73856607217 No Longer Active Marvel MARROQUIN Active ALLOPURINOL 300 MG TABS Take one by mouth daily ALLOPURINOL 42497470187 Active Alina Castaneda MD PhD Active ZYPREXA 10 MG TABS Take one by mouth daily OLANZAPINE 37579630500 No Longer Active Alina Castaneda MD PhD Active NOVOLOG 100 UNIT/ML SOLN 40 units with every meal INSULIN ASPART 41199450604 No Longer Active Alina Castaneda MD PhD Active VERAPAMIL HCL CR 120 MG TAB CR 1 qPM VERAPAMIL HCL 85020433111 No Longer Active Salina Han A Active ZYPREXA 15 MG TABS Take 1 tablet by mouth daily OLANZAPINE 19584128466 No Longer Active Marvel MARROQUIN Active LISINOPRIL 20 MG TABS 1 BID LISINOPRIL 38551002941 Active Mao Rodriguez MD Active ALBUTEROL SULFATE (2.5 MG/3ML) 0.083% NEBU 1 neb tid and prn cough ALBUTEROL SULFATE 16998652372 No Longer Active Alina Castaneda MD PhD Active FLUVOXAMINE MALEATE 100 MG TABS Take one (1) tablet by mouth am, 1/2 at noon, 1 pm FLUVOXAMINE MALEATE 33731958981 Active Alina Castaneda MD PhD Active TRAVATAN Z 0.004 % SOLN 1 gtt each eye daily TRAVOPROST 18445661290 Active Alina Mendez Active LANTUS 100 UNIT/ML SOLN 60 units sq q hs INSULIN GLARGINE 59368466287 No Longer Active Alina Mendez Active UROXATRAL 10 MG YQ80C-HHU Take 1 tablet by mouth daily ALFUZOSIN HCL 01638227890 Active Tanya MARROQUIN Active ALBUTEROL SULFATE (2.5 MG/3ML) 0.083% NEBU 1 neb tid and prn cough ALBUTEROL SULFATE (2.5 MG/3ML) 0.083% NEBU 536899 ALBUTEROL SULFATE Inactive ZYPREXA 15 MG TABS Take 1 tablet by mouth daily ZYPREXA 15 MG TABS 213722 OLANZAPINE Inactive VERAPAMIL HCL CR 120 MG TAB CR 1 qPM VERAPAMIL HCL CR 120 MG TAB CR VERAPAMIL HCL Inactive ZYPREXA 10 MG TABS Take one by mouth daily ZYPREXA 10 MG TABS 375468 OLANZAPINE Inactive TOPROL XL 100 MG [id number] 1 @ HS TOPROL XL 100 MG [id number]-FLS METOPROLOL SUCCINATE Inactive LEVEMIR 100 UNIT/ML SOLN 90 units SQ qHS LEVEMIR 100 UNIT/ML SOLN INSULIN DETEMIR Inactive PROMETHAZINE-CODEINE 6.25-10 MG/5ML SYRP 1 tsp po q 6 hours prn cough PROMETHAZINE-CODEINE 6.25-10 MG/5ML SYRP 076120 PROMETHAZINE- CODEINE Inactive GUAIFENESIN 600 MG MG62N-OJL 1 tablet by mouth twice daily if needed for cough GUAIFENESIN 600 MG EC74U-KKT GUAIFENESIN Inactive ALBUTEROL SULFATE 0.083 % NEBU SOLN one vial per nebulizer TID and PRN cough/ soa ALBUTEROL SULFATE 0.083 % NEBU SOLN 246628 ALBUTEROL SULFATE Inactive ZYPREXA 5 MG TABS take one tablet by mouth every evening ZYPREXA 5 MG TABS 686199 OLANZAPINE Inactive HYDROCODONE-ACETAMINOPHEN 5-325 MG TABS take one tablet by mouth every four hours as needed for pain HYDROCODONE-ACETAMINOPHEN 5-325 MG TABS 749051 HYDROCODONE-ACETAMINOPHEN Inactive BACTROBAN 2 % CREAM apply to ear and nose twice daily BACTROBAN 2 % CREAM 606196 MUPIROCIN CALCIUM Inactive CYCLOBENZAPRINE HCL 10 MG TABS 1/2 tablet by mouth every 8 hours as needed for muscle spasms CYCLOBENZAPRINE HCL 10 MG TABS 600725 CYCLOBENZAPRINE HCL Inactive NAVANE 10 MG CAPS 1/2 tablet twice a day NAVANE 10 MG CAPS THIOTHIXENE Inactive DOXEPIN HCL 10 MG CAPS Take 1 tablet by mouth daily DOXEPIN HCL 10 MG CAPS 8485207 DOXEPIN HCL Inactive HYDROCODONE-ACETAMINOPHEN 7.5-325 MG TABS 1 four times a day as needed for pain HYDROCODONE-ACETAMINOPHEN 7.5-325 MG TABS 525345 HYDROCODONE-ACETAMINOPHEN Inactive NIACIN CR 500 MG CR-TABS 2 qHS NIACIN CR 500 MG CR- TABS NIACIN Inactive ORPHENADRINE CITRATE ER 100 MG CM75S-AYK 1 every 12 hr. as needed ORPHENADRINE CITRATE ER 100 MG [id number]-PDQ ORPHENADRINE CITRATE Inactive ACETAMINOPHEN 500 MG TABS 2 Q 6 hr. PRN ACETAMINOPHEN 500 MG TABS 708330 ACETAMINOPHEN Inactive SAPHRIS 5 MG SUBL by mouth twice a day SAPHRIS 5 MG SUBL ASENAPINE MALEATE Inactive NIACIN ER 500 MG CR-TABS 4 qHS (for triglycerides) NIACIN ER 500 MG CR-TABS NIACIN Inactive IBUPROFEN 200 MG TABS 1 Q 6 hr. PRN IBUPROFEN 200 MG TABS 098595 IBUPROFEN Inactive FLUTICASONE PROPIONATE 50 MCG/ACT SUSP 2 sprays each nostril qDay x 30 days FLUTICASONE PROPIONATE 50 MCG/ACT SUSP 551745 FLUTICASONE PROPIONATE Inactive EQL TRUETEST TEST STRP Test blood sugar TID EQL TRUETEST TEST STRP GLUCOSE BLOOD Inactive TERESE CONTOUR TEST STRP monitor blood sugars 3x/day TERESE CONTOUR TEST STRP GLUCOSE BLOOD Inactive DETROL LA 4 MG AM24A-ORT Take 1 tablet by mouth daily DETROL LA 4 MG ZG11O-AUT TOLTERODINE TARTRATE Inactive CEFDINIR 300 MG CAPS by mouth twice a day CEFDINIR 300 MG CAPS 269160 CEFDINIR Inactive AZITHROMYCIN 500 MG SOLR 1 po q day AZITHROMYCIN 500 MG SOLR 595141 AZITHROMYCIN Inactive AMOXICILLIN 500 MG CAPS 2 po BID x 10 days AMOXICILLIN 500 MG CAPS 665559 AMOXICILLIN Inactive Immunizations Vaccine Administration Date Value [...] Fluvirin, Fluarix, Agriflu(>=18 yo)) Fluzone (>3 yrs.) [[id number]] Influenza, seasonal, injectable pneumococcal immunization administered Pneumovax [...] acid - Chemistry sodium, serum 130 mmol/L 060-484 3162/05/01 potassium, serum 5.2 mmol/L 3.5-5.2 chloride, serum [...] 0.40 mg/dL 0.00-1.00 cholesterol, serum 151 mg/dL 974-415 1032/05/01 triglyceride, serum, fasting 356 mg/dL 30-200 HDL [...] HGBA1C - Chemistry sodium, serum 126 mmol/L 901-872 4007/02/26 potassium, serum 4.8 mmol/L 3.5-5.2 chloride, serum [...] DIRECT - Chemistry cholesterol, serum 158 mg/dL 858-056 5538/07/11 triglyceride, serum, fasting 489 mg/dL 30-200 HDL [...] mg/dL Encounters Code Encounter Date Provider Facility CPT-45760 Level 3 Est. Patient 08:20:05 CDT Alina Castaneda MD PhD [facility]-14946 Level 3 Est. Patient 15:17:18 CDT Alina Castaneda MD PhD [facility]-60659 Level 3 Est. 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 Patient 10:09:15 [facility]PER[facility] [facility] [place] Level 3 Est. Patient 21:28:43 CDT Alina Castaneda MD PhD [facility]-98289 Level 3 Est. Patient 15:20:11 CDT [facility] Gurdeepestela [facility]-30384 Level 4 Est. Patient 19:08:12 CDT Alina Castaneda MD PhD [facility]40082 Level 3 Est. Patient 15:06:39 CDT [facility] Gurdeepestela [facility]-14548 Level 4 Est. Patient 17:48:15 CDT Alina Castaneda MD [facility]-87763 Level 3 Est. Patient 14:53:49 CDT Alina Castaneda MD [facility]-87120 Level 3 Est. Patient 09:35:16 CDT Alina Castaneda MD [facility]-52657 Level 3 Est. Patient 12:23:22 CDT Alina Castaneda MD [facility]-14404 Level 3 Est. Patient 16:19:15 CDT Alina Castaneda MD [facility]-81618 Level 3 Est. Patient 21:39:56 [employer]PENTER SUPERVISOR Alina Castaneda MD [facility]-83592 Level 4 Est. Patient 14:12:56 CARPENTER SUPERVISOR Alina Castaneda MD [facility]-01688 Level 2 Est. Patient 15:34:57 CARPENTER SUPERVISOR Alina Castaneda MD [facility]-19397 Level 3 Est. Patient 12:17:04 CARPENTER SUPERVISOR Alina Castaneda MD [facility]-13107 Level 3 Est. Patient 09:18:18 CARPENTER SUPERVISOR Marvel Charles [facility]-11262 Level 2 Est. Patient 21:50:24 CDT Ailna Castaneda MD [facility]-97031 Level 3 Est. Patient 09:17:28 CDT Marvel [facility]-63866 Level 4 Est. Patient 18:54:02 CDT Alina Castaneda MD [facility]-94040 Level 3 Est. Patient 10:47:10 CDT Alina Castaneda MD [facility]-08693 Level 3 Est. Patient 09:22:20 [facility] 3 Est. [facility] 16:39:[facility] [place] CPT-88640 Level 3 Est. Patient 16:05:16 CDT Alina Castaneda MD [facility] CPT-63098 Level 3 Est. Patient 00:29:15 CDT Alina Castaneda MD [facility] CPT-34597 Level 3 Est. Patient 10:49:22 CARPENTER SUPERVISOR Marvel Thurstonestela [facility] [place] CPT-14649 Level 3 Est. Patient 21:30:19 CARPENTER SUPERVISOR Alina Castaneda MD [facility] CPT-36163 Level 4 Est. Patient 17:04:11 CARPENTER SUPERVISOR [facility] Level 3 Est. Patient 15:34:11 [place] [place]PER[employer] [facility] [place]95320 Level 2 Est. Patient 12:51:58 CARPENTER SUPERVISOR Alina Castaneda MD [facility] CPT-13967 Level 3 Est. Patient 13:20:01 CARPENTER SUPERVISOR Alina Castaneda MD [facility] CPT-23670 Level 3 Est. Patient 09:23:35 CDT Alina Castaneda MD [facility] Procedures Code Procedure Name Date Entry Date Standard Description CPT-31984 Administration single or combination vaccine inc oral 11 :49:51 CDT CPT-65733 Pneumovax 11:49:51 CDT CPT-11210 Ribs unilateral 2V 12:37:22 [employer]PENTER SUPERVISOR CPT-44772 Chest 2V Frontal and Lat 17:15:26 CDT CPT-99346 Abx/Therapy Injection 18:54:02 CDT CPT-J0696 Rocephin 1000 mg (Ceftriaxone) 16:00:32 CDT CPT-35334 Chest 2V Frontal and Lat 15:26:45 CDT CPT-06971 Chest 2V Frontal and Lat 10:23:27 CDT CPT-99080 Venipuncture Draw Fee 10:11:00 CDT CPT-89950 Administration single or combination vaccine inc oral 11 :56:38 CDT CPT-68575 Influenza split virus > age 3 11:56:38 CDT CPT-40419 Venipuncture Draw Fee 08:49:54 [employer]PENTER SUPERVISOR CPT-58940 EKG Trac and Interp 17:54:19 CARPENTER SUPERVISOR
--- OUTSIDE RECORDS SUMMARY | 2018-07-02 20:32 | XMS REPORT | Clinical Summary ---
[...] MALIGNANT NEOPLASM OF PROSTATE ICD-V76.44 Inactive Alina Catsaneda MD PhD Medication List Medication Instructions Start Date Stop Date Generic Name NDC Status Provider Patient Instruction MORPHINE SULFATE 30 MG TABS 1 pill by mouth nightly, for pain MORPHINE SULFATE 30556330260 Active Alina Castaneda MD PhD Active LATUDA 80 MG TABS 1 tab by mouth every evening LURASIDONE HCL 66753334392 Active Alina Castaneda MD PhD Active UROXATRAL 10 MG [id number] Take 1 tablet by mouth daily ALFUZOSIN HCL 43789143374 No Longer Active Alina Castaneda MD PhD Active THIOTHIXENE 5 MG CAPS by mouth twice a day THIOTHIXENE 66837928510 No Longer Active Alina Castaneda MD PhD Active ZYPREXA 7.5 MG TABS 1 at HS OLANZAPINE 32512543774 No Longer Active Alina Castaneda MD PhD Active HUMALOG 100 UNIT/ML SOLN Take 20 units with breakfast, 10u with lunch and suppetr. INSULIN LISPRO (HUMAN) 26551267242 Active Maliheh Ziglari REGISTERED NURSE CARDIAC Active LEVEMIR 100 UNIT/ML SOLN Take 70 u at 7-8pm INSULIN DETEMIR 95376433206 Active Maliheh Ziglari REGISTERED NURSE CARDIAC Active BD INSULIN SYRINGE 28G X 1/2" 1 ML MISC 1 four times per day INSULIN SYRINGE-NEEDLE U-100 52095606984 Active Maliheh Ziglari REGISTERED NURSE CARDIAC Active CYCLOBENZAPRINE HCL 10 MG TABS 1 tablet by mouth three times daily, scheduled CYCLOBENZAPRINE HCL 36858819947 Active Alina Castaneda MD PhD Active TOLTERODINE TARTRATE 2 MG TABS 1 pill twice daily, for bladder TOLTERODINE TARTRATE 95169792263 Active Alina Castaneda MD PhD Active DETROL LA 4 MG [id number] Take 1 tablet by mouth daily TOLTERODINE TARTRATE 61338016067 No Longer Active Alina Castaneda MD PhD Active HYDROCODONE-ACETAMINOPHEN 5-325 MG TABS 2 tabs by mouth three times daily as needed for pain HYDROCODONE-ACETAMINOPHEN 15713999073 Active Alina Castaneda MD PhD Active TERESE CONTOUR TEST STRP monitor blood sugars 3x/day GLUCOSE BLOOD 75030606001 No Longer Active Alina Castaneda MD PhD Active EQL TRUETEST TEST STRP Test blood sugar TID GLUCOSE BLOOD 26007663688 No Longer Active Alina Castaneda MD PhD Active FLUTICASONE PROPIONATE 50 MCG/ACT SUSP 2 sprays each nostril qDay x 30 days FLUTICASONE PROPIONATE 65724968949 No Longer Active Alina Castaneda MD PhD Active IBUPROFEN 200 MG TABS 1 Q 6 hr. PRN IBUPROFEN 34251844451 No Longer Active Alina Castaneda MD PhD Active NIACIN ER 500 MG CR-TABS 4 qHS (for triglycerides) NIACIN 46144975760 No Longer Active Alina Castaneda MD PhD Active TRUETEST TEST STRP check sugars 4x/day GLUCOSE BLOOD 22486953708 Active Marvel Mackenzieglari REGISTERED NURSE CARDIAC Active ALFUZOSIN HCL ER 10 MG [id number] 1 tablet daily ALFUZOSIN HCL 15825034630 Active Vanessa Hickey MD Active CLONAZEPAM 1 MG TABS 1 pill by mouth three times daily CLONAZEPAM 49790719783 Active Alina Castaneda MD PhD Active LOVAZA 1 GM CAPS 4 daily (for triglycerides) [id number] ETHYL ESTERS 55470978888 Active Alina Castaneda MD PhD Active SAPHRIS 5 MG SUBL by mouth twice a day ASENAPINE MALEATE 75345359347 No Longer Active Marvel MENDOZAP Active ACETAMINOPHEN 500 MG TABS 2 Q 6 hr. PRN ACETAMINOPHEN 07275241836 No Longer Active Marvel Thurstonari REGISTERED NURSE CARDIAC Active VERAPAMIL HCL ER 120 MG [id number]-[id number] 1 pill by mouth twice a day, for headache prevention/control VERAPAMIL HCL 53083323978 Active Alina Castaneda MD PhD Active ORPHENADRINE CITRATE ER 100 MG DO81R-ILO 1 every 12 hr. as needed ORPHENADRINE CITRATE 15292556297 No Longer Active Alina Castaneda MD PhD Active NIACIN CR 500 MG CR-TABS 2 qHS NIACIN 30543356659 No Longer Active Alina Castaneda MD PhD Active AMOXICILLIN 500 MG CAPS 2 po BID x 10 days AMOXICILLIN 34041416397 No Longer Active Alina Castaneda MD PhD Active HYDROCODONE-ACETAMINOPHEN 7.5-325 MG TABS 1 four times a day as needed for pain HYDROCODONE-ACETAMINOPHEN 85480495218 No Longer Active Alina Castaneda MD PhD Active METFORMIN HCL ER 500 MG [id number]-SRJ Take three tablets by mouth everyday METFORMIN HCL 88486039002 Active Alina Castaneda MD PhD Active DOXEPIN HCL 10 MG CAPS Take 1 tablet by mouth daily DOXEPIN HCL 26314329794 No Longer Active Salina Han [facility] Active NAVANE 10 MG CAPS 1/2 tablet twice a day THIOTHIXENE No Longer Active Salina Han [facility] Active CYCLOBENZAPRINE HCL 10 MG TABS 1/2 tablet by mouth every 8 hours as needed for muscle spasms CYCLOBENZAPRINE HCL 73542031424 No Longer Active Alina Castaneda MD PhD Active BACTROBAN 2 % CREAM apply to ear and nose twice daily MUPIROCIN CALCIUM 98556831349 No Longer Active Alina Castaneda MD PhD Active HYDROCODONE-ACETAMINOPHEN 5-325 MG TABS take one tablet by mouth every four hours as needed for pain HYDROCODONE-ACETAMINOPHEN 37572398797 No Longer Active Alina Castaneda MD PhD Active ZOLPIDEM TARTRATE 10 MG TABS take at bedtime ZOLPIDEM TARTRATE 77585046940 Active Alina Castaneda MD PhD Active ZYPREXA 5 MG TABS take one tablet by mouth every evening OLANZAPINE 27598678194 No Longer Active Alina Castaneda MD PhD Active ALBUTEROL SULFATE 0.083 % NEBU SOLN one vial per nebulizer TID and PRN cough/ soa ALBUTEROL SULFATE 20190356703 No Longer Active Alina Castaneda MD PhD Active GUAIFENESIN 600 MG [id number]-KLG 1 tablet by mouth twice daily if needed for cough GUAIFENESIN 31842688774 No Longer Active Marvel MARROQUIN Active AZITHROMYCIN 500 MG SOLR 1 po q day AZITHROMYCIN 28318880232 No Longer Active Alina Castaneda MD PhD Active METOPROLOL SUCCINATE 100 MG HK86B-STF 1 by mouth daily for blood pressure METOPROLOL SUCCINATE 74094222605 Active Alina Castaneda MD PhD Active PROMETHAZINE-CODEINE 6.25-10 MG/5ML SYRP 1 tsp po q 6 hours prn cough PROMETHAZINE-CODEINE 37044377784 No Longer Active Alina Castaneda MD PhD Active CEFDINIR 300 MG CAPS by mouth twice a day CEFDINIR 84893775295 No Longer Active Alina Castaneda MD PhD Active METFORMIN HCL 500 MG BX17O-KNU Take 3 tablets by mouth everyday METFORMIN HCL 90685323880 No Longer Active Alina Castaneda MD PhD Active LEVEMIR 100 UNIT/ML SOLN 90 units SQ qHS INSULIN DETEMIR 63386489395 No Longer Active Marvel MARROQUIN Active TOPROL XL 100 MG [id number]-AUD 1 @ HS METOPROLOL SUCCINATE 04055669078 No Longer Active Marvel MARROQUIN Active ALLOPURINOL 300 MG TABS Take one by mouth daily ALLOPURINOL 75026857489 Active Alina Castaneda MD PhD Active ZYPREXA 10 MG TABS Take one by mouth daily OLANZAPINE 51808499709 No Longer Active Alina Castaneda MD PhD Active NOVOLOG 100 UNIT/ML SOLN 40 units with every meal INSULIN ASPART 30069954435 No Longer Active Alina Castaneda MD PhD Active VERAPAMIL HCL CR 120 MG TAB CR 1 qPM VERAPAMIL HCL 22160831096 No Longer Active Salina Han [facility] Active ZYPREXA 15 MG TABS Take 1 tablet by mouth daily OLANZAPINE 57073162638 No Longer Active Marvel MARROQUIN Active LISINOPRIL 20 MG TABS 1 BID LISINOPRIL 77020832878 Active Alina Castaneda MD PhD Active ALBUTEROL SULFATE (2.5 MG/3ML) 0.083% NEBU 1 neb tid and prn cough ALBUTEROL SULFATE 75980342167 No Longer Active Alina Castaneda MD PhD Active FLUVOXAMINE MALEATE 100 MG TABS Take one (1) tablet by mouth am, 05/25 at noon, 1 pm FLUVOXAMINE MALEATE 65996632606 Active Alina Castaneda MD PhD Active TRAVATAN Z 0.004 % SOLN 1 gtt each eye daily TRAVOPROST 52972461260 Active CRYSTAL Suarez Active LANTUS 100 UNIT/ML SOLN 60 units sq q hs INSULIN GLARGINE 02756138230 No Longer Active CRYSTAL Suarez Active ALBUTEROL SULFATE (2.5 MG/3ML) 0.083% NEBU 1 neb tid and prn cough ALBUTEROL SULFATE (2.5 MG/3ML) 0.083% NEBU 168522 ALBUTEROL SULFATE Inactive ZYPREXA 15 MG TABS Take 1 tablet by mouth daily ZYPREXA 15 MG TABS 175318 OLANZAPINE Inactive VERAPAMIL HCL CR 120 MG TAB CR 1 qPM VERAPAMIL HCL CR 120 MG TAB CR VERAPAMIL HCL Inactive ZYPREXA 10 MG TABS Take one by mouth daily ZYPREXA 10 MG TABS 455104 OLANZAPINE Inactive TOPROL XL 100 MG [id number]-TAL 1 @ HS TOPROL XL 100 MG CN39S-EDD METOPROLOL SUCCINATE Inactive LEVEMIR 100 UNIT/ML SOLN 90 units SQ qHS LEVEMIR 100 UNIT/ML SOLN INSULIN DETEMIR Inactive PROMETHAZINE-CODEINE 6.25-10 MG/5ML SYRP 1 tsp po q 6 hours prn cough PROMETHAZINE-CODEINE 6.25-10 MG/5ML SYRP 212043 PROMETHAZINE- CODEINE Inactive GUAIFENESIN 600 MG XY28I-MJY 1 tablet by mouth twice daily if needed for cough GUAIFENESIN 600 MG [id number]-OLC GUAIFENESIN Inactive ALBUTEROL SULFATE 0.083 % NEBU SOLN one vial per nebulizer TID and PRN cough/ soa ALBUTEROL SULFATE 0.083 % [facility] 183768 ALBUTEROL SULFATE Inactive ZYPREXA 5 MG TABS take one tablet by mouth every evening ZYPREXA 5 MG TABS 877555 OLANZAPINE Inactive HYDROCODONE-ACETAMINOPHEN 5-325 MG TABS take one tablet by mouth every four hours as needed for pain HYDROCODONE-ACETAMINOPHEN 5-325 MG TABS 987335 HYDROCODONE-ACETAMINOPHEN Inactive BACTROBAN 2 % CREAM apply to ear and nose twice daily BACTROBAN 2 % CREAM 757608 MUPIROCIN CALCIUM Inactive CYCLOBENZAPRINE HCL 10 MG TABS 1/2 tablet by mouth every 8 hours as needed for muscle spasms CYCLOBENZAPRINE HCL 10 MG TABS 648865 CYCLOBENZAPRINE HCL Inactive NAVANE 10 MG CAPS 1/2 tablet twice a day NAVANE 10 MG CAPS THIOTHIXENE Inactive DOXEPIN HCL 10 MG CAPS Take 1 tablet by mouth daily DOXEPIN HCL 10 MG CAPS 9031555 DOXEPIN HCL Inactive HYDROCODONE-ACETAMINOPHEN 7.5-325 MG TABS 1 four times a day as needed for pain HYDROCODONE-ACETAMINOPHEN 7.5-325 MG TABS 725984 HYDROCODONE-ACETAMINOPHEN Inactive NIACIN CR 500 MG CR-TABS 2 qHS NIACIN CR 500 MG CR- TABS NIACIN Inactive ORPHENADRINE CITRATE ER 100 MG GG69I-PRA 1 every 12 hr. as needed ORPHENADRINE CITRATE ER 100 MG [id number]-KBL ORPHENADRINE CITRATE Inactive ACETAMINOPHEN 500 MG TABS 2 Q 6 hr. PRN ACETAMINOPHEN 500 MG TABS 470118 ACETAMINOPHEN Inactive SAPHRIS 5 MG SUBL by mouth twice a day SAPHRIS 5 MG SUBL ASENAPINE MALEATE Inactive NIACIN ER 500 MG CR-TABS 4 qHS (for triglycerides) NIACIN ER 500 MG CR-TABS NIACIN Inactive IBUPROFEN 200 MG TABS 1 Q 6 hr. PRN IBUPROFEN 200 MG TABS 866198 IBUPROFEN Inactive FLUTICASONE PROPIONATE 50 MCG/ACT SUSP 2 sprays each nostril qDay x 30 days FLUTICASONE PROPIONATE 50 MCG/ACT SUSP 137222 FLUTICASONE PROPIONATE Inactive EQL TRUETEST TEST STRP Test blood sugar TID EQL TRUETEST TEST STRP GLUCOSE BLOOD Inactive TERESE CONTOUR TEST STRP monitor blood sugars 3x/day TERESE CONTOUR TEST STRP GLUCOSE BLOOD Inactive DETROL LA 4 MG [id number] Take 1 tablet by mouth daily DETROL LA 4 MG XU28M-THL TOLTERODINE TARTRATE Inactive ZYPREXA 7.5 MG TABS 1 at HS ZYPREXA 7.5 MG TABS 488551 OLANZAPINE Inactive THIOTHIXENE 5 MG CAPS by mouth twice a day THIOTHIXENE 5 MG CAPS 907716 THIOTHIXENE Inactive UROXATRAL 10 MG GA84R-MSF Take 1 tablet by mouth daily UROXATRAL 10 MG XQ11S-YRL ALFUZOSIN HCL Inactive CEFDINIR 300 MG CAPS by mouth twice a day CEFDINIR 300 MG CAPS 856810 CEFDINIR Inactive AZITHROMYCIN 500 MG SOLR 1 po q day AZITHROMYCIN 500 MG SOLR 455152 AZITHROMYCIN Inactive AMOXICILLIN 500 MG CAPS 2 po BID x 10 days AMOXICILLIN 500 MG CAPS 675847 AMOXICILLIN Inactive Immunizations Vaccine Administration Date Value [...] Fluvirin, Fluarix, Agriflu(>=18 yo)) Fluzone (>3 yrs.) [[id number]] Influenza, seasonal, injectable pneumococcal immunization administered Pneumovax [...] HGBA1C - Chemistry sodium, serum 130 mmol/L 898-938 8990/06/09 potassium, serum 4.0 mmol/L 3.5-5.2 chloride, serum [...] 6.0 mg/dL 2.6-7.2 sodium, serum 130 mmol/L 922-135 8028/05/01 potassium, serum 5.2 mmol/L 3.5-5.2 chloride, serum [...] 0.40 mg/dL 0.00-1.00 cholesterol, serum 151 mg/dL 570-787 0072/05/01 triglyceride, serum, fasting 356 mg/dL 30-200 HDL [...] HGBA1C - Chemistry sodium, serum 126 mmol/L 733-511 3768/02/26 potassium, serum 4.8 mmol/L 3.5-5.2 chloride, serum [...] mg/dL Encounters Code Encounter Date Provider Facility CPT-95357 Level 3 Est. Patient 09:32:11 CDT Maliheh Ziglari [facility]-16676 Level 3 Est. Patient 12:02:49 CDT Alina Castaneda MD [facility]-22760 Level 3 Est. Patient 19:17:33 CDT Alina Castaneda MD [facility]01793 Level 3 Est. Patient 13:19:10 CDT Marvel Charles [facility]-35943 Level 3 Est. Patient 08:20:05 CDT Alina Castaneda MD [facility]92151 Level 3 Est. Patient 15:17:18 CDT Alina Castaneda MD [facility]-55864 Level 3 Est. Patient 14:25:36 SUPERINTENDENT REFUSE DISPOSAL Marvel Charles [facility]-51845 Level 3 Est. Patient 10:09:15 SUPERINTENDENT REFUSE DISPOSAL Marvel Charles [facility]-74825 Level 3 Est. Patient 21:28:43 CDT Alina Castaneda MD [facility]-36060 Level 3 Est. Patient 15:20:11 CDT Marvel Gurdeepajayestela [facility]-46980 Level 4 Est. Patient 19:08:12 CDT Alina Castaneda MD [facility]-24330 Level 3 Est. Patient 15:06:39 CDT Marvel Gurdeepajayestela [facility]-37978 Level 4 Est. Patient 17:48:15 CDT Alina Castaneda MD [facility]80342 Level 3 Est. Patient 14:53:49 CDT Alian Castaneda MD [facility]93490 Level 3 Est. Patient 09:35:16 CDT Alina Castaneda MD [facility]-21829 Level 3 Est. Patient 12:23:22 CDT Alina Castaneda MD [facility]-10866 Level 3 Est. Patient 16:19:15 CDT Alina Castaneda MD [facility]24141 Level 3 Est. Patient 21:39:56 SUPERINTENDENT REFUSE DISPOSAL Alina Castaneda MD [facility]-84722 Level 4 Est. Patient 14:12:56 SUPERINTENDENT REFUSE DISPOSAL Alina Castaneda MD [facility]-69924 Level 2 Est. Patient 15:34:57 SUPERINTENDENT REFUSE DISPOSAL Alina Castaneda MD [facility]-86768 Level 3 Est. Patient 12:17:04 SUPERINTENDENT REFUSE DISPOSAL Alina Castaneda MD [facility]-34243 Level 3 Est. Patient 09:18:18 SUPERINTENDENT REFUSE DISPOSAL Marvel Charles [facility]-37392 Level 2 Est. Patient 21:50:24 CDT Alina Castaneda MD [facility]-07065 Level 3 Est. Patient 09:17:28 CDT Marvel Charles [facility]-46678 Level 4 Est. Patient 18:54:02 CDT Alina Castaneda MD [facility]-16663 Level 3 Est. Patient 10:47:10 CDT Alina Castaneda MD [facility]00817 Level 3 Est. Patient 09:22:20 CDT Marvel Charles [facility]85189 Level 3 Est. Patient 16:39:43 CDT Marvel Charles [facility]88600 Level 3 Est. Patient 16:05:16 CDT Alina Castaneda MD [facility] CPT-21998 Level 3 Est. Patient 00:29:15 CDT Alina Castaneda MD [facility] CPT-43975 Level 3 Est. Patient 10:49:22 [facility] Level 3 Est. Patient 21:30:19 SUPERINTENDENT REFUSE DISPOSAL Alina Castaneda MD [facility] CPT-91777 Level 4 Est. Patient 17:04:11 SUPERINTENDENT REFUSE DISPOSAL [facility] CPT-54579 Level 3 Est. Patient 15:34:11 SUPERINTENDENT REFUSE DISPOSAL [facility] 2 Est. Patient 12:51:58 SUPERINTENDENT REFUSE DISPOSAL Alina Castaneda MD [facility] CPT-73775 Level 3 Est. Patient 13:20:01 SUPERINTENDENT REFUSE DISPOSAL Alina Castaneda MD [facility] CPT-86570 Level 3 Est. Patient 09:23:35 CDT Alina Castaneda MD [facility] Procedures Code Procedure Name Date Entry Date Standard Description CPT-G0008 Administration of Influenza Virus Vaccine 13:05:26 CDT CPT-08203 Fluzone Quadrivalent Intramuscular Suspension 0.5 ML 13: 05:26 CDT CPT-27546 Administration single or combination vaccine inc oral 11 :49:51 CDT CPT-43260 Pneumovax 11:49:51 CDT CPT-59207 Ribs unilateral 2V 12:37:22 SUPERINTENDENT REFUSE DISPOSAL CPT-24472 Chest 2V Frontal and Lat 17:15:26 CDT CPT-18172 Abx/Therapy Injection 18:54:02 CDT CPT-J0696 Rocephin 1000 mg (Ceftriaxone) 16:00:32 CDT CPT-55157 Chest 2V Frontal and Lat 15:26:45 CDT CPT-90212 Chest 2V Frontal and Lat 10:23:27 CDT CPT-96872 Venipuncture Draw Fee 10:11:00 CDT CPT-64872 Administration single or combination vaccine inc oral 11 :56:38 CDT CPT-73263 Influenza split virus > age 3 11:56:38 CDT CPT-40720 Venipuncture Draw Fee 08:49:54 SUPERINTENDENT REFUSE DISPOSAL CPT-05528 EKG Trac and Interp 17:54:19 SUPERINTENDENT REFUSE DISPOSAL
--- OUTSIDE RECORDS SUMMARY | 2018-07-02 20:33 | XMS REPORT | Clinical Summary ---
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 Active Alina Castaneda MD PhD Recurrent isolated sleep paralysis SPECIAL SCREENING FOR MALIGNANT NEOPLASM OF PROSTATE V76.44 Resolved Alina Castaneda MD PhD Screening for malignant neoplasms of prostate Hypoglycemia 251.2 Active Zaineh 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 LOPEZ Hypoglycemia, unspecified Diabetes mellitus, type II 250.00 Active Maliheh Ziglari [employer] Diabetes mellitus without mention of complication, type [...] by mouth nightly, for pain MORPHINE SULFATE 62717363824 Active Rhett Luther DO Active LATUDA 80 MG TABS 1 tab by mouth every evening LURASIDONE HCL 61783510075 Active Alina Castaneda MD PhD Active UROXATRAL 10 MG [id number] Take 1 tablet by mouth daily ALFUZOSIN HCL 32443361203 No Longer Active Alina Castaneda MD PhD Active THIOTHIXENE 5 MG CAPS by mouth twice a day THIOTHIXENE 41310131095 No Longer Active Alina Castaneda MD PhD Active ZYPREXA 7.5 MG TABS 1 at HS OLANZAPINE 43573369412 No Longer Active Alina Castaneda MD PhD Active HUMALOG 100 UNIT/ML SOLN Take 20 units with breakfast, 10u with lunch and suppetr. INSULIN LISPRO (HUMAN) 40605133314 Active Maliheh Ziglari [employer] Active LEVEMIR 100 UNIT/ML SOLN Take 70 u at 7-8pm INSULIN DETEMIR 76980015956 Active Maliheh Ziglari [employer] Active BD INSULIN SYRINGE 28G X 1/2" 1 ML MISC 1 four times per day INSULIN SYRINGE-NEEDLE U-100 11834996044 Active Maliheh Ziglari [employer] Active CYCLOBENZAPRINE HCL 10 MG TABS 1 tablet by mouth three times daily, scheduled CYCLOBENZAPRINE HCL 66765451946 Active Alina Castaneda MD PhD Active TOLTERODINE TARTRATE 2 MG TABS 1 pill twice daily, for bladder TOLTERODINE TARTRATE 03547329053 Active Alina Castaneda MD PhD Active DETROL LA 4 MG [id number] Take 1 tablet by mouth daily TOLTERODINE TARTRATE 56789264765 No Longer Active Alina Castaneda MD PhD Active HYDROCODONE-ACETAMINOPHEN 5-325 MG TABS 2 tabs by mouth three times daily as needed for pain HYDROCODONE-ACETAMINOPHEN 29558598537 Active Rhett W Ashkan DO Active TERESE CONTOUR TEST STRP monitor blood sugars 3x/day GLUCOSE BLOOD 47513040691 No Longer Active Alina Castaneda MD PhD Active EQL TRUETEST TEST STRP Test blood sugar TID GLUCOSE BLOOD 89579073019 No Longer Active Alina Castaneda MD PhD Active FLUTICASONE PROPIONATE 50 MCG/ACT SUSP 2 sprays each nostril qDay x 30 days FLUTICASONE PROPIONATE 76117467060 No Longer Active Alina Castaneda MD PhD Active IBUPROFEN 200 MG TABS 1 Q 6 hr. PRN IBUPROFEN 04562441073 No Longer Active Alina Castaneda MD PhD Active NIACIN ER 500 MG CR-TABS 4 qHS (for triglycerides) NIACIN 33372987286 No Longer Active Alina Castaneda MD PhD Active TRUETEST TEST STRP check sugars 4x/day GLUCOSE BLOOD 15948507461 Active Marvel MARROQUIN Active ALFUZOSIN HCL ER 10 MG [id number] 1 tablet daily ALFUZOSIN HCL 89130475796 Active Vanessa Hickey MD Active CLONAZEPAM 1 MG TABS 1 pill by mouth three times daily CLONAZEPAM 01855671906 Active Alina Castaneda MD PhD Active LOVAZA 1 GM CAPS 4 daily (for triglycerides) [id number] ETHYL ESTERS 64854603450 Active Alina Castaneda MD PhD Active SAPHRIS 5 MG SUBL by mouth twice a day ASENAPINE MALEATE 23208367553 No Longer Active Marvel MENDOZAP Active ACETAMINOPHEN 500 MG TABS 2 Q 6 hr. PRN ACETAMINOPHEN 95978575224 No Longer Active Marvel MENDOZAP Active VERAPAMIL HCL ER 120 MG [id number] 1 pill by mouth twice a day, for headache prevention/control VERAPAMIL HCL 50906013639 Active Alina Castaneda MD PhD Active ORPHENADRINE CITRATE ER 100 MG BL33K-MWL 1 every 12 hr. as needed ORPHENADRINE CITRATE 38173651263 No Longer Active Alina Castaneda MD PhD Active NIACIN CR 500 MG CR-TABS 2 qHS NIACIN 43830464649 No Longer Active Alina Castaneda MD PhD Active AMOXICILLIN 500 MG CAPS 2 po BID x 10 days AMOXICILLIN 07372800582 No Longer Active Alina Castaneda MD PhD Active HYDROCODONE-ACETAMINOPHEN 7.5-325 MG TABS 1 four times a day as needed for pain HYDROCODONE-ACETAMINOPHEN 98893103685 No Longer Active Alina Castaneda MD PhD Active METFORMIN HCL ER 500 MG [id number]-XWG Take three tablets by mouth everyday METFORMIN HCL 73585196868 Active Alina Castaneda MD PhD Active DOXEPIN HCL 10 MG CAPS Take 1 tablet by mouth daily DOXEPIN HCL 75053021554 No Longer Active Salina Han [facility] Active NAVANE 10 MG CAPS 1/2 tablet twice a day THIOTHIXENE No Longer Active Salina Han [facility] Active CYCLOBENZAPRINE HCL 10 MG TABS 1/2 tablet by mouth every 8 hours as needed for muscle spasms CYCLOBENZAPRINE HCL 94941609028 No Longer Active Alina Castaneda MD PhD Active BACTROBAN 2 % CREAM apply to ear and nose twice daily MUPIROCIN CALCIUM 60650531427 No Longer Active Alina Castaneda MD PhD Active HYDROCODONE-ACETAMINOPHEN 5-325 MG TABS take one tablet by mouth every four hours as needed for pain HYDROCODONE-ACETAMINOPHEN 81150451623 No Longer Active Alina Castaneda MD PhD Active ZOLPIDEM TARTRATE 10 MG TABS take at bedtime ZOLPIDEM TARTRATE 80332429035 Active Alina Castaneda MD PhD Active ZYPREXA 5 MG TABS take one tablet by mouth every evening OLANZAPINE 06060529193 No Longer Active Alina Castaneda MD PhD Active ALBUTEROL SULFATE 0.083 % NEBU SOLN one vial per nebulizer TID and PRN cough/ soa ALBUTEROL SULFATE 15143339399 No Longer Active Alina Castaneda MD PhD Active GUAIFENESIN 600 MG SP49Y-LNH 1 tablet by mouth twice daily if needed for cough GUAIFENESIN 17623206034 No Longer Active Marvel MARROQUIN Active AZITHROMYCIN 500 MG SOLR 1 po q day AZITHROMYCIN 22584390390 No Longer Active Alina Castaneda MD PhD Active METOPROLOL SUCCINATE 100 MG AC30M-DJX 1 by mouth daily for blood pressure METOPROLOL SUCCINATE 97249398939 Active Alina Castaneda MD PhD Active PROMETHAZINE-CODEINE 6.25-10 MG/5ML SYRP 1 tsp po q 6 hours prn cough PROMETHAZINE-CODEINE 29811565822 No Longer Active Alina Castaneda MD PhD Active CEFDINIR 300 MG CAPS by mouth twice a day CEFDINIR 42107931898 No Longer Active Alina Castaneda MD PhD Active METFORMIN HCL 500 MG DW65T-VLZ Take 3 tablets by mouth everyday METFORMIN HCL 28512998376 No Longer Active Alina Castaneda MD PhD Active LEVEMIR 100 UNIT/ML SOLN 90 units SQ qHS INSULIN DETEMIR 56725197906 No Longer Active Marvel MARROQUIN Active TOPROL XL 100 MG [id number]-GXC 1 @ HS METOPROLOL SUCCINATE 71029125173 No Longer Active Marvel MARROQUIN Active ALLOPURINOL 300 MG TABS Take one by mouth daily ALLOPURINOL 49601747192 Active Alina Castaneda MD PhD Active ZYPREXA 10 MG TABS Take one by mouth daily OLANZAPINE 39203501138 No Longer Active Alina Castaneda MD PhD Active NOVOLOG 100 UNIT/ML SOLN 40 units with every meal INSULIN ASPART 05334168631 No Longer Active Alina Castaneda MD PhD Active VERAPAMIL HCL CR 120 MG TAB CR 1 qPM VERAPAMIL HCL 16300182160 No Longer Active Salina Han [facility] Active ZYPREXA 15 MG TABS Take 1 tablet by mouth daily OLANZAPINE 74919115949 No Longer Active Marvel Charles [employer] Active LISINOPRIL 20 MG TABS 1 BID LISINOPRIL 04836325792 Active Alina Castaneda MD PhD Active ALBUTEROL SULFATE (2.5 MG/3ML) 0.083% NEBU 1 neb tid and prn cough ALBUTEROL SULFATE 23247429496 No Longer Active Alina Castaneda MD PhD Active FLUVOXAMINE MALEATE 100 MG TABS Take one (1) tablet by mouth am, 05/25 at noon, 1 pm FLUVOXAMINE MALEATE 95678075606 Active Alina Castaneda MD PhD Active TRAVATAN Z 0.004 % SOLN 1 gtt each eye daily TRAVOPROST 67317806536 Active CRYSTAL Suarez Active LANTUS 100 UNIT/ML SOLN 60 units sq q hs INSULIN GLARGINE 13990565018 No Longer Active CRYSTAL Suarez Active ALBUTEROL SULFATE (2.5 MG/3ML) 0.083% NEBU 1 neb tid and prn cough ALBUTEROL SULFATE (2.5 MG/3ML) 0.083% NEBU 527321 ALBUTEROL SULFATE Inactive ZYPREXA 15 MG TABS Take 1 tablet by mouth daily ZYPREXA 15 MG TABS 067972 OLANZAPINE Inactive VERAPAMIL HCL CR 120 MG TAB CR 1 qPM VERAPAMIL HCL CR 120 MG TAB CR VERAPAMIL HCL Inactive ZYPREXA 10 MG TABS Take one by mouth daily ZYPREXA 10 MG TABS 946399 OLANZAPINE Inactive TOPROL XL 100 MG [id number] 1 @ HS TOPROL XL 100 MG ZZ73E-GBK METOPROLOL SUCCINATE Inactive LEVEMIR 100 UNIT/ML SOLN 90 units SQ qHS LEVEMIR 100 UNIT/ML SOLN INSULIN DETEMIR Inactive PROMETHAZINE-CODEINE 6.25-10 MG/5ML SYRP 1 tsp po q 6 hours prn cough PROMETHAZINE-CODEINE 6.25-10 MG/5ML SYRP 439350 PROMETHAZINE- CODEINE Inactive GUAIFENESIN 600 MG QW44J-SEF 1 tablet by mouth twice daily if needed for cough GUAIFENESIN 600 MG CK12X-BSF GUAIFENESIN Inactive ALBUTEROL SULFATE 0.083 % NEBU SOLN one vial per nebulizer TID and PRN cough/ soa ALBUTEROL SULFATE 0.083 % NEBU SOLN 822350 ALBUTEROL SULFATE Inactive ZYPREXA 5 MG TABS take one tablet by mouth every evening ZYPREXA 5 MG TABS 233567 OLANZAPINE Inactive HYDROCODONE-ACETAMINOPHEN 5-325 MG TABS take one tablet by mouth every four hours as needed for pain HYDROCODONE-ACETAMINOPHEN 5-325 MG TABS 918337 HYDROCODONE-ACETAMINOPHEN Inactive BACTROBAN 2 % CREAM apply to ear and nose twice daily BACTROBAN 2 % CREAM 218581 MUPIROCIN CALCIUM Inactive CYCLOBENZAPRINE HCL 10 MG TABS 1/2 tablet by mouth every 8 hours as needed for muscle spasms CYCLOBENZAPRINE HCL 10 MG TABS 452410 CYCLOBENZAPRINE HCL Inactive NAVANE 10 MG CAPS 1/2 tablet twice a day NAVANE 10 MG CAPS THIOTHIXENE Inactive DOXEPIN HCL 10 MG CAPS Take 1 tablet by mouth daily DOXEPIN HCL 10 MG CAPS 3657333 DOXEPIN HCL Inactive HYDROCODONE-ACETAMINOPHEN 7.5-325 MG TABS 1 four times a day as needed for pain HYDROCODONE-ACETAMINOPHEN 7.5-325 MG TABS 150643 HYDROCODONE-ACETAMINOPHEN Inactive NIACIN CR 500 MG CR-TABS 2 qHS NIACIN CR 500 MG CR- TABS NIACIN Inactive ORPHENADRINE CITRATE ER 100 MG JZ67Y-KAR 1 every 12 hr. as needed ORPHENADRINE CITRATE ER 100 MG GL63C-TPC ORPHENADRINE CITRATE Inactive ACETAMINOPHEN 500 MG TABS 2 Q 6 hr. PRN ACETAMINOPHEN 500 MG TABS 271162 ACETAMINOPHEN Inactive SAPHRIS 5 MG SUBL by mouth twice a day SAPHRIS 5 MG SUBL ASENAPINE MALEATE Inactive NIACIN ER 500 MG CR-TABS 4 qHS (for triglycerides) NIACIN ER 500 MG CR-TABS NIACIN Inactive IBUPROFEN 200 MG TABS 1 Q 6 hr. PRN IBUPROFEN 200 MG TABS 692204 IBUPROFEN Inactive FLUTICASONE PROPIONATE 50 MCG/ACT SUSP 2 sprays each nostril qDay x 30 days FLUTICASONE PROPIONATE 50 MCG/ACT SUSP 120750 FLUTICASONE PROPIONATE Inactive EQL TRUETEST TEST STRP Test blood sugar TID EQL TRUETEST TEST STRP GLUCOSE BLOOD Inactive TERESE CONTOUR TEST STRP monitor blood sugars 3x/day TERESE CONTOUR TEST STRP GLUCOSE BLOOD Inactive DETROL LA 4 MG JY61T-SYO Take 1 tablet by mouth daily DETROL LA 4 MG TR70Y-BHV TOLTERODINE TARTRATE Inactive ZYPREXA 7.5 MG TABS 1 at HS ZYPREXA 7.5 MG TABS 441726 OLANZAPINE Inactive THIOTHIXENE 5 MG CAPS by mouth twice a day THIOTHIXENE 5 MG CAPS 112526 THIOTHIXENE Inactive UROXATRAL 10 MG HI30J-VOG Take 1 tablet by mouth daily UROXATRAL 10 MG HE22C-BBG ALFUZOSIN HCL Inactive CEFDINIR 300 MG CAPS by mouth twice a day CEFDINIR 300 MG CAPS 924809 CEFDINIR Inactive AZITHROMYCIN 500 MG SOLR 1 po q day AZITHROMYCIN 500 MG SOLR 658188 AZITHROMYCIN Inactive AMOXICILLIN 500 MG CAPS 2 po BID x 10 days AMOXICILLIN 500 MG CAPS 519633 AMOXICILLIN Inactive Immunizations Vaccine Administration Date Value [...] Fluvirin, Fluarix, Agriflu(>=18 yo)) Fluzone (>3 yrs.) [[id number]] Influenza, seasonal, injectable pneumococcal immunization administered Pneumovax [...] HGBA1C - Chemistry sodium, serum 130 mmol/L 408-795 0099/06/09 potassium, serum 4.0 mmol/L 3.5-5.2 chloride, serum 92 mmol/L 98-107 carbon dioxide, venous blood 22.1 mmol/L 21.0-32.0 blood glucose 60 mg/dL 65-110 calcium, serum 9.5 mg/dL 8.5-10.1 urea nitrogen, blood 14 mg/dL 7-18 creatinine, serum 1.30 mg/dL 0.60-1.30 hemoglobin A1C, blood, as % of total hemoglobin 6.0 % 4.3-6.0 sodium, serum 131 mmol/L 019-001 3122/12/30 potassium, serum 5.0 mmol/L 3.5-5.2 chloride, serum [...] 6.0 mg/dL 2.6-7.2 sodium, serum 130 mmol/L 624-774 9589/05/01 potassium, serum 5.2 mmol/L 3.5-5.2 chloride, serum [...] 0.40 mg/dL 0.00-1.00 cholesterol, serum 151 mg/dL 336-694 7446/05/01 triglyceride, serum, fasting 356 mg/dL 30-200 HDL [...] Panel - Chemistry sodium, serum 127 mmol/L 864-669 1823/10/27 potassium, serum 4.1 mmol/L 3.5-5.2 chloride, serum [...] HGBA1C - Chemistry sodium, serum 126 mmol/L 253-985 6349/02/26 potassium, serum 4.8 mmol/L 3.5-5.2 chloride, serum [...] mg/dL Encounters Code Encounter Date Provider Facility CPT-45461 Level 3 Est. Patient 10:01:51 [facility] [employer] [facility] CPT-38541 Level 3 Est. Patient 21:54:06 CDT Vanessa Hickey MD [facility] CPT-69127 Level 3 Est. Patient 08:54:46 CDT Alina Castaneda MD PhD [facility] CPT-36422 Level 3 Est. Patient 09:32:11 CDT Marvel Charles [facility] CPT-24726 Level 3 Est. Patient 12:02:49 CDT Alina Castaneda MD [facility]-83049 Level 3 Est. Patient 19:17:33 CDT Alina Castaneda MD [facility]-12149 Level 3 Est. Patient 13:19:10 [facility]T [facility]-67683 Level 3 Est. Patient 08:20:05 CDT Alina Castaneda MD [facility]-98408 Level 3 Est. Patient 15:17:18 CDT Alina Castaneda MD [facility]-62557 Level 3 Est. Patient 14:25:36 [employer] [facility] Patient 10:09:15 [facility] [facility] Patient 21:28:43 CDT Alina Castaneda MD [facility]-99425 Level 3 Est. Patient 15:20:11 CDT [facility] Level 4 Est. Patient 19:08:12 CDT Alina Castaneda MD [facility]-53042 Level 3 Est. Patient 15:06:39 [facility]-88196 Level 4 Est. Patient 17:48:15 CDT Alina Castaneda MD [facility]-29364 Level 3 Est. Patient 14:53:49 CDT Alina Castaneda MD [facility]-51870 Level 3 Est. Patient 09:35:16 CDT Alina Castaneda MD [facility]-93170 Level 3 Est. Patient 12:23:22 CDT Alina Castaneda MD [facility]-67365 Level 3 Est. Patient 16:19:15 CDT Alina Castaneda MD [facility]-11414 Level 3 Est. Patient 21:39:56 [employer] Alina Castaneda MD [facility]-21845 Level 4 Est. Patient 14:12:56 [employer] Alina Castaneda MD [facility]-96343 Level 2 Est. Patient 15:34:57 [employer] Alina Castaneda MD [facility]-51105 Level 3 Est. Patient 12:17:04 [employer] Alina Castaneda MD [facility]-02201 Level 3 Est. Patient 09:18:18 [employer] Marvel Charles [facility]-46492 Level 2 Est. Patient 21:50:24 CDT Alina Castaneda MD [facility]-89004 Level 3 Est. Patient 09:17:28 CDT Marvel Charles [facility]-53528 Level 4 Est. Patient 18:54:02 CDT Alina Castaneda MD [facility]-17905 Level 3 Est. Patient 10:47:10 CDT Alina Castaneda MD [facility]-67603 Level 3 Est. Patient 09:22:20 CDT Marvel Charles [facility]-43060 Level 3 Est. Patient 16:39:43 CDT Marvel Charles [facility]-47912 Level 3 Est. Patient 16:05:16 CDT Alina Castaneda MD [facility] CPT-66244 Level 3 Est. Patient 00:29:15 CDT Alina Castaneda MD [facility] CPT-18036 Level 3 Est. Patient 10:49:22 [employer] Marvel [facility] CPT-19225 Level 3 Est. Patient 21:30:19 [employer] Alina Castaneda MD [facility] CPT-90937 Level 4 Est. Patient 17:04:11 [employer] [facility] CPT-20397 Level 3 Est. Patient 15:34:11 [employer] [facility] CPT-99554 Level 2 Est. Patient 12:51:58 [employer] Alina Castaneda MD [facility] CPT-80395 Level 3 Est. Patient 13:20:01 [employer] Alina Castaneda MD [facility] CPT-14550 Level 3 Est. Patient 09:23:35 CDT Alina Castaneda MD [facility] Procedures Code Procedure Name Date Entry Date Standard Description CPT-76951 Bladder Scan 21:54:06 CDT CPT-G0008 Administration of Influenza Virus Vaccine 13:05:26 CDT CPT-84272 Fluzone Quadrivalent Intramuscular Suspension 0.5 ML 13: 05:26 CDT CPT-73304 Administration single or combination vaccine inc oral 11 :49:51 CDT CPT-97797 Pneumovax 11:49:51 CDT CPT-67196 Ribs unilateral 2V 12:37:22 [employer] CPT-53704 Chest 2V Frontal and Lat 17:15:26 CDT CPT-71748 Abx/Therapy Injection 18:54:02 CDT CPT-J0696 Rocephin 1000 mg (Ceftriaxone) 16:00:32 CDT CPT-28257 Chest 2V Frontal and Lat 15:26:45 CDT CPT-11064 Chest 2V Frontal and Lat 10:23:27 CDT CPT-94842 Venipuncture Draw Fee 10:11:00 CDT CPT-34822 Administration single or combination vaccine inc oral 11 :56:38 CDT CPT-13974 Influenza split virus > age 3 11:56:38 CDT CPT-98233 Venipuncture Draw Fee 08:49:54 [employer] CPT-55333 EKG Trac and Interp 17:54:19 [employer]
--- OUTSIDE RECORDS SUMMARY | 2018-07-02 20:35 | XMS REPORT | Clinical Summary ---
Author Author Admin, TERELL Organization [facility] Address Unknown Phone Unavailable Allergies, [...] Castaneda MD PhD SINUSITIS, ACUTE ICD-461.9 Inactive Alnia Castaneda MD PhD BRONCHITIS, ACUTE ICD-466.0 Inactive [...] by mouth nightly, for pain MORPHINE SULFATE 03846205876 Active Alina Castaneda MD PhD Active LATUDA 80 MG TABS 1 tab by mouth every evening LURASIDONE HCL 99369148072 Active Alina Castaneda MD PhD Active UROXATRAL 10 MG [id number] Take 1 tablet by mouth daily ALFUZOSIN HCL 46192378773 No Longer Active Alina Castaneda MD PhD Active THIOTHIXENE 5 MG CAPS by mouth twice a day THIOTHIXENE 13726232483 No Longer Active Alina Castaneda MD PhD Active ZYPREXA 7.5 MG TABS 1 at HS OLANZAPINE 61916649889 No Longer Active Alina Castaneda MD PhD Active HUMALOG 100 UNIT/ML SOLN Take 20 units with breakfast, 10u with lunch and suppetr. INSULIN LISPRO (HUMAN) 09205126339 Active Maliheh Ziglari REGISTRATION SCHEDULING SPECIALIST Active LEVEMIR 100 UNIT/ML SOLN Take 70 u at 7-8pm INSULIN DETEMIR 09924951901 Active Maliheh Ziglari REGISTRATION SCHEDULING SPECIALIST Active BD INSULIN SYRINGE 28G X 1/2" 1 ML MISC 1 four times per day INSULIN SYRINGE-NEEDLE U-100 40661223639 Active Maliheh Ziglari REGISTRATION SCHEDULING SPECIALIST Active CYCLOBENZAPRINE HCL 10 MG TABS 1 tablet by mouth three times daily, scheduled CYCLOBENZAPRINE HCL 64765385502 Active Alina Castaneda MD PhD Active TOLTERODINE TARTRATE 2 MG TABS 1 pill twice daily, for bladder TOLTERODINE TARTRATE 72315725961 Active Alina Castaneda MD PhD Active DETROL LA 4 MG [id number]-EBT Take 1 tablet by mouth daily TOLTERODINE TARTRATE 35111329330 No Longer Active Alina Castaneda MD PhD Active HYDROCODONE-ACETAMINOPHEN 5-325 MG TABS 2 tabs by mouth three times daily as needed for pain HYDROCODONE-ACETAMINOPHEN 59879784657 Active Alina Castaneda MD PhD Active TERESE CONTOUR TEST STRP monitor blood sugars 3x/day GLUCOSE BLOOD 10873020815 No Longer Active Alina Castaneda MD PhD Active EQL TRUETEST TEST STRP Test blood sugar TID GLUCOSE BLOOD 06658052558 No Longer Active Alina Castaneda MD PhD Active FLUTICASONE PROPIONATE 50 MCG/ACT SUSP 2 sprays each nostril qDay x 30 days FLUTICASONE PROPIONATE 98258152226 No Longer Active Alina Castaneda MD PhD Active IBUPROFEN 200 MG TABS 1 Q 6 hr. PRN IBUPROFEN 25284831230 No Longer Active Alina Castaneda MD PhD Active NIACIN ER 500 MG CR-TABS 4 qHS (for triglycerides) NIACIN 19637930933 No Longer Active Alina Castaneda MD PhD Active TRUETEST TEST STRP check sugars 4x/day GLUCOSE BLOOD 52442590077 Active Alina Castaneda MD PhD Active ALFUZOSIN HCL ER 10 MG [id number] 1 tablet daily ALFUZOSIN HCL 23610593491 Active Vanessa Hickey MD Active CLONAZEPAM 1 MG TABS 1 pill by mouth three times daily CLONAZEPAM 69338756773 Active Alina Castaneda MD PhD Active LOVAZA 1 GM CAPS 4 daily (for triglycerides) [id number] ETHYL ESTERS 32419831397 Active Alina Castaneda MD PhD Active SAPHRIS 5 MG SUBL by mouth twice a day ASENAPINE MALEATE 63001588717 No Longer Active Maljohn Mackenzieglari REGISTRATION SCHEDULING SPECIALIST Active ACETAMINOPHEN 500 MG TABS 2 Q 6 hr. PRN ACETAMINOPHEN 61926184206 No Longer Active Maliheh Ziglari REGISTRATION SCHEDULING SPECIALIST Active VERAPAMIL HCL ER 120 MG [id number]-TVW 1 pill by mouth twice a day, for headache prevention/control VERAPAMIL HCL 21693570296 Active Alina Castaneda MD PhD Active ORPHENADRINE CITRATE ER 100 MG [id number] 1 every 12 hr. as needed ORPHENADRINE CITRATE 53980772810 No Longer Active Alina Castaneda MD PhD Active NIACIN CR 500 MG CR-TABS 2 qHS NIACIN 71707403767 No Longer Active Alina Castaneda MD PhD Active AMOXICILLIN 500 MG CAPS 2 po BID x 10 days AMOXICILLIN 65111342812 No Longer Active Alina Castaneda MD PhD Active HYDROCODONE-ACETAMINOPHEN 7.5-325 MG TABS 1 four times a day as needed for pain HYDROCODONE-ACETAMINOPHEN 93319869410 No Longer Active Alina Castaneda MD PhD Active METFORMIN HCL ER 500 MG [id number]-WTY Take three tablets by mouth everyday METFORMIN HCL 16607330537 Active Alina Castaneda MD PhD Active DOXEPIN HCL 10 MG CAPS Take 1 tablet by mouth daily DOXEPIN HCL 28973533157 No Longer Active Salina Han A Active NAVANE 10 MG CAPS 1/2 tablet twice a day THIOTHIXENE No Longer Active Salina Han [facility] Active CYCLOBENZAPRINE HCL 10 MG TABS 1/2 tablet by mouth every 8 hours as needed for muscle spasms CYCLOBENZAPRINE HCL 36829770300 No Longer Active Alina Castaneda MD PhD Active BACTROBAN 2 % CREAM apply to ear and nose twice daily MUPIROCIN CALCIUM 06964075560 No Longer Active Alina Castaneda MD PhD Active HYDROCODONE-ACETAMINOPHEN 5-325 MG TABS take one tablet by mouth every four hours as needed for pain HYDROCODONE-ACETAMINOPHEN 53727405516 No Longer Active Alina Castaneda MD PhD Active ZOLPIDEM TARTRATE 10 MG TABS take at bedtime ZOLPIDEM TARTRATE 38946149348 Active Alina Castaneda MD PhD Active ZYPREXA 5 MG TABS take one tablet by mouth every evening OLANZAPINE 02801710779 No Longer Active Alina Castaneda MD PhD Active ALBUTEROL SULFATE 0.083 % NEBU SOLN one vial per nebulizer TID and PRN cough/ soa ALBUTEROL SULFATE 52257311914 No Longer Active Alina Castaneda MD PhD Active GUAIFENESIN 600 MG RH28I-ZES 1 tablet by mouth twice daily if needed for cough GUAIFENESIN 27311154848 No Longer Active Marvel MARROQUIN Active AZITHROMYCIN 500 MG SOLR 1 po q day AZITHROMYCIN 54773282121 No Longer Active Alina Castaneda MD PhD Active METOPROLOL SUCCINATE 100 MG WS34V-TYI 1 by mouth daily for blood pressure METOPROLOL SUCCINATE 72646738744 Active Alina Castaneda MD PhD Active PROMETHAZINE-CODEINE 6.25-10 MG/5ML SYRP 1 tsp po q 6 hours prn cough PROMETHAZINE-CODEINE 64463768940 No Longer Active Alina Castaneda MD PhD Active CEFDINIR 300 MG CAPS by mouth twice a day CEFDINIR 38653162108 No Longer Active Alina Castaneda MD PhD Active METFORMIN HCL 500 MG MP29N-CXP Take 3 tablets by mouth everyday METFORMIN HCL 91846380344 No Longer Active Alina Castaneda MD PhD Active LEVEMIR 100 UNIT/ML SOLN 90 units SQ qHS INSULIN DETEMIR 04179345542 No Longer Active Marvel MARROQUIN Active TOPROL XL 100 MG [id number]-HBB 1 @ HS METOPROLOL SUCCINATE 32673742968 No Longer Active Marvel MARROQUIN Active ALLOPURINOL 300 MG TABS Take one by mouth daily ALLOPURINOL 27202102087 Active Alina Castaneda MD PhD Active ZYPREXA 10 MG TABS Take one by mouth daily OLANZAPINE 48226891137 No Longer Active Alina Castaneda MD PhD Active NOVOLOG 100 UNIT/ML SOLN 40 units with every meal INSULIN ASPART 96361543989 No Longer Active Alina Castaneda MD PhD Active VERAPAMIL HCL CR 120 MG TAB CR 1 qPM VERAPAMIL HCL 07227265588 No Longer Active Salina Han [facility] Active ZYPREXA 15 MG TABS Take 1 tablet by mouth daily OLANZAPINE 79746586382 No Longer Active Marvel MARROQUIN Active LISINOPRIL 20 MG TABS 1 BID LISINOPRIL 49193453190 Active Alina Castandea MD PhD Active ALBUTEROL SULFATE (2.5 MG/3ML) 0.083% NEBU 1 neb tid and prn cough ALBUTEROL SULFATE 80543507501 No Longer Active Alina Castaneda MD PhD Active FLUVOXAMINE MALEATE 100 MG TABS Take one (1) tablet by mouth am, 05/25 at noon, 1 pm FLUVOXAMINE MALEATE 22949184304 Active Alina Castaneda MD PhD Active TRAVATAN Z 0.004 % SOLN 1 gtt each eye daily TRAVOPROST 68290371930 Active CRYSTAL Suarez Active LANTUS 100 UNIT/ML SOLN 60 units sq q hs INSULIN GLARGINE 31549551492 No Longer Active CRYSTAL Suarez Active ALBUTEROL SULFATE (2.5 MG/3ML) 0.083% NEBU 1 neb tid and prn cough ALBUTEROL SULFATE (2.5 MG/3ML) 0.083% NEBU 840016 ALBUTEROL SULFATE Inactive ZYPREXA 15 MG TABS Take 1 tablet by mouth daily ZYPREXA 15 MG TABS 975890 OLANZAPINE Inactive VERAPAMIL HCL CR 120 MG TAB CR 1 qPM VERAPAMIL HCL CR 120 MG TAB CR VERAPAMIL HCL Inactive ZYPREXA 10 MG TABS Take one by mouth daily ZYPREXA 10 MG TABS 893968 OLANZAPINE Inactive TOPROL XL 100 MG [id number] 1 @ HS TOPROL XL 100 MG [id number]-DZT METOPROLOL SUCCINATE Inactive LEVEMIR 100 UNIT/ML SOLN 90 units SQ qHS LEVEMIR 100 UNIT/ML SOLN INSULIN DETEMIR Inactive PROMETHAZINE-CODEINE 6.25-10 MG/5ML SYRP 1 tsp po q 6 hours prn cough PROMETHAZINE-CODEINE 6.25-10 MG/5ML SYRP 877703 PROMETHAZINE- CODEINE Inactive GUAIFENESIN 600 MG [id number]-GIC 1 tablet by mouth twice daily if needed for cough GUAIFENESIN 600 MG GI31L-RTM GUAIFENESIN Inactive ALBUTEROL SULFATE 0.083 % NEBU SOLN one vial per nebulizer TID and PRN cough/ soa ALBUTEROL SULFATE 0.083 % [facility] 183797 ALBUTEROL SULFATE Inactive ZYPREXA 5 MG TABS take one tablet by mouth every evening ZYPREXA 5 MG TABS 352945 OLANZAPINE Inactive HYDROCODONE-ACETAMINOPHEN 5-325 MG TABS take one tablet by mouth every four hours as needed for pain HYDROCODONE-ACETAMINOPHEN 5-325 MG TABS 858340 HYDROCODONE-ACETAMINOPHEN Inactive BACTROBAN 2 % CREAM apply to ear and nose twice daily BACTROBAN 2 % CREAM 363108 MUPIROCIN CALCIUM Inactive CYCLOBENZAPRINE HCL 10 MG TABS 1/2 tablet by mouth every 8 hours as needed for muscle spasms CYCLOBENZAPRINE HCL 10 MG TABS 264596 CYCLOBENZAPRINE HCL Inactive NAVANE 10 MG CAPS 1/2 tablet twice a day NAVANE 10 MG CAPS THIOTHIXENE Inactive DOXEPIN HCL 10 MG CAPS Take 1 tablet by mouth daily DOXEPIN HCL 10 MG CAPS 8324972 DOXEPIN HCL Inactive HYDROCODONE-ACETAMINOPHEN 7.5-325 MG TABS 1 four times a day as needed for pain HYDROCODONE-ACETAMINOPHEN 7.5-325 MG TABS 198322 HYDROCODONE-ACETAMINOPHEN Inactive NIACIN CR 500 MG CR-TABS 2 qHS NIACIN CR 500 MG CR- TABS NIACIN Inactive ORPHENADRINE CITRATE ER 100 MG [id number] 1 every 12 hr. as needed ORPHENADRINE CITRATE ER 100 MG [id number]-XWM ORPHENADRINE CITRATE Inactive ACETAMINOPHEN 500 MG TABS 2 Q 6 hr. PRN ACETAMINOPHEN 500 MG TABS 798020 ACETAMINOPHEN Inactive SAPHRIS 5 MG SUBL by mouth twice a day SAPHRIS 5 MG SUBL ASENAPINE MALEATE Inactive NIACIN ER 500 MG CR-TABS 4 qHS (for triglycerides) NIACIN ER 500 MG CR-TABS NIACIN Inactive IBUPROFEN 200 MG TABS 1 Q 6 hr. PRN IBUPROFEN 200 MG TABS 847150 IBUPROFEN Inactive FLUTICASONE PROPIONATE 50 MCG/ACT SUSP 2 sprays each nostril qDay x 30 days FLUTICASONE PROPIONATE 50 MCG/ACT SUSP 337369 FLUTICASONE PROPIONATE Inactive EQL TRUETEST TEST STRP Test blood sugar TID EQL TRUETEST TEST STRP GLUCOSE BLOOD Inactive TERESE CONTOUR TEST STRP monitor blood sugars 3x/day TERESE CONTOUR TEST STRP GLUCOSE BLOOD Inactive DETROL LA 4 MG [id number]-RTR Take 1 tablet by mouth daily DETROL LA 4 MG [id number]-PEC TOLTERODINE TARTRATE Inactive ZYPREXA 7.5 MG TABS 1 at HS ZYPREXA 7.5 MG TABS 533081 OLANZAPINE Inactive THIOTHIXENE 5 MG CAPS by mouth twice a day THIOTHIXENE 5 MG CAPS 845624 THIOTHIXENE Inactive UROXATRAL 10 MG FZ40S-XDE Take 1 tablet by mouth daily UROXATRAL 10 MG BZ98D-PFH ALFUZOSIN HCL Inactive CEFDINIR 300 MG CAPS by mouth twice a day CEFDINIR 300 MG CAPS 150590 CEFDINIR Inactive AZITHROMYCIN 500 MG SOLR 1 po q day AZITHROMYCIN 500 MG SOLR 966064 AZITHROMYCIN Inactive AMOXICILLIN 500 MG CAPS 2 po BID x 10 days AMOXICILLIN 500 MG CAPS 617931 AMOXICILLIN Inactive Immunizations Vaccine Administration Date Value [...] Fluvirin, Fluarix, Agriflu(>=18 yo)) Fluzone (>3 yrs.) [[id number]] Influenza, seasonal, injectable pneumococcal immunization administered Pneumovax [...] HGBA1C - Chemistry sodium, serum 130 mmol/L 358-913 0066/06/09 potassium, serum 4.0 mmol/L 3.5-5.2 chloride, serum [...] 6.0 mg/dL 2.6-7.2 sodium, serum 130 mmol/L 724-784 2522/05/01 potassium, serum 5.2 mmol/L 3.5-5.2 chloride, serum [...] 0.40 mg/dL 0.00-1.00 cholesterol, serum 151 mg/dL 177-698 9010/05/01 triglyceride, serum, fasting 356 mg/dL 30-200 HDL [...] HGBA1C - Chemistry sodium, serum 126 mmol/L 269-241 8307/02/26 potassium, serum 4.8 mmol/L 3.5-5.2 chloride, serum [...] mg/dL Encounters Code Encounter Date Provider Facility CPT-58733 Level 3 Est. Patient 09:32:11 CDT Maliheh Ziglari [facility]-04990 Level 3 Est. Patient 12:02:49 CDT Alina Castaneda MD [facility]-77486 Level 3 Est. Patient 19:17:33 CDT Alina Castaneda MD [facility]-28252 Level 3 Est. Patient 13:19:10 CDT Marvel Charles [facility]-67986 Level 3 Est. Patient 08:20:05 CDT Alina Castaneda MD [facility]45238 Level 3 Est. Patient 15:17:18 CDT Alina Castaneda MD [facility]82253 Level 3 Est. Patient 14:25:36 [facility]-19739 Level 3 Est. Patient 10:09:15 BROOM STITCHER Marvel Charles [facility]-50790 Level 3 Est. Patient 21:28:43 CDT Alina Castaneda MD [facility]-54582 Level 3 Est. Patient 15:20:11 CDT Marvel Thurstonestela [facility]-58358 Level 4 Est. Patient 19:08:12 CDT Alina Castaneda MD [facility]-16277 Level 3 Est. Patient 15:06:39 CDT Marvel Gurdeepajayestela [facility]-06131 Level 4 Est. Patient 17:48:15 CDT Alina Castaneda MD [facility]52426 Level 3 Est. Patient 14:53:49 CDT Alina Castaneda MD [facility]-81957 Level 3 Est. Patient 09:35:16 CDT Alina Castaneda MD [facility]-12833 Level 3 Est. Patient 12:23:22 CDT Alina Castaneda MD [facility]33352 Level 3 Est. Patient 16:19:15 CDT Alina Castaneda MD [facility]82962 Level 3 Est. Patient 21:39:56 BROOM STITCHER Alina Castaneda MD [facility]13529 Level 4 Est. Patient 14:12:56 BROOM STITCHER Alina Castaneda MD [facility]50369 Level 2 Est. Patient 15:34:57 BROOM STITCHER Alina Castaneda MD [facility]-24394 Level 3 Est. Patient 12:17:04 BROOM STITCHER Alina Castaneda MD [facility]-01010 Level 3 Est. Patient 09:18:18 BROOM STITCHER Marvel Charles [facility]-24618 Level 2 Est. Patient 21:50:24 CDT Alina Castaneda MD [facility]56185 Level 3 Est. Patient 09:17:28 CDT Marvel Charles [facility]-58717 Level 4 Est. Patient 18:54:02 CDT Alina Castaneda MD [facility]-58830 Level 3 Est. Patient 10:47:10 CDT Alina Castaneda MD [facility]65575 Level 3 Est. Patient 09:22:20 CDT Marvel Charles [facility]81617 Level 3 Est. Patient 16:39:43 CDT Marvel Charles [facility]-06393 Level 3 Est. Patient 16:05:16 CDT Alina Castaneda MD [facility] CPT-79719 Level 3 Est. Patient 00:29:15 CDT Alina Castaneda MD [facility] CPT-60671 Level 3 Est. Patient 10:49:22 [facility] CPT-66524 Level 3 Est. Patient 21:30:19 BROOM STITCHER Alina Castaneda MD [facility] CPT-04145 Level 4 Est. Patient 17:04:11 BROOM STITCHER [facility] CPT-44339 Level 3 Est. Patient 15:34:11 BROOM STITCHER [facility]30 Level 2 Est. Patient 12:51:58 BROOM STITCHER Alina Castaneda MD [facility] CPT-00974 Level 3 Est. Patient 13:20:01 BROOM STITCHER Alina Castaneda MD [facility] CPT-36603 Level 3 Est. Patient 09:23:35 CDT Alina Castaneda MD [facility] Procedures Code Procedure Name Date Entry Date Standard Description CPT-G0008 Administration of Influenza Virus Vaccine 13:05:26 CDT CPT-08793 Fluzone Quadrivalent Intramuscular Suspension 0.5 ML 13: 05:26 CDT CPT-75640 Administration single or combination vaccine inc oral 11 :49:51 CDT CPT-05569 Pneumovax 11:49:51 CDT CPT-45276 Ribs unilateral 2V 12:37:22 BROOM STITCHER CPT-63751 Chest 2V Frontal and Lat 17:15:26 CDT CPT-90990 Abx/Therapy Injection 18:54:02 CDT CPT-J0696 Rocephin 1000 mg (Ceftriaxone) 16:00:32 CDT CPT-75462 Chest 2V Frontal and Lat 15:26:45 CDT CPT-59446 Chest 2V Frontal and Lat 10:23:27 CDT CPT-39690 Venipuncture Draw Fee 10:11:00 CDT CPT-02367 Administration single or combination vaccine inc oral 11 :56:38 CDT CPT-72392 Influenza split virus > age 3 11:56:38 CDT CPT-30555 Venipuncture Draw Fee 08:49:54 BROOM STITCHER CPT-35339 EKG Trac and Interp 17:54:19 BROOM STITCHER
--- OUTSIDE RECORDS SUMMARY | 2018-07-02 20:36 | XMS REPORT | Clinical Summary ---
[...] MD PhD SKIN LESION ICD-709.9 Inactive Alina aCstaneda MD PhD SINUSITIS, ACUTE ICD-461.9 Roro Castaneda [...] by mouth nightly, for pain MORPHINE SULFATE 67599082504 Active Michele Chacon MD Active LATUDA 80 MG TABS 1 tab by mouth every evening LURASIDONE HCL 54711347605 Active Alina Castaneda MD PhD Active UROXATRAL 10 MG [id number] Take 1 tablet by mouth daily ALFUZOSIN HCL 45484292057 No Longer Active Alina Castaneda MD PhD Active THIOTHIXENE 5 MG CAPS by mouth twice a day THIOTHIXENE 47300444419 No Longer Active Alina Castaneda MD PhD Active ZYPREXA 7.5 MG TABS 1 at HS OLANZAPINE 12282280531 No Longer Active Alina Castaneda MD PhD Active HUMALOG 100 UNIT/ML SOLN Take 20 units with breakfast, 10u with lunch and suppetr. INSULIN LISPRO (HUMAN) 13853545315 Active Maliheh Ziglari EARLY LEARNING TEACHER Active LEVEMIR 100 UNIT/ML SOLN Take 70 u at 7-8pm INSULIN DETEMIR 27099541992 Active Maliheh Ziglari EARLY LEARNING TEACHER Active BD INSULIN SYRINGE 28G X 1/2" 1 ML MISC 1 four times per day INSULIN SYRINGE-NEEDLE U-100 34641855701 Active Maliheh Ziglari EARLY LEARNING TEACHER Active CYCLOBENZAPRINE HCL 10 MG TABS 1 tablet by mouth three times daily, scheduled CYCLOBENZAPRINE HCL 82600206456 Active Alina Castaneda MD PhD Active TOLTERODINE TARTRATE 2 MG TABS 1 pill twice daily, for bladder TOLTERODINE TARTRATE 14104754240 Active Alina Castaneda MD PhD Active DETROL LA 4 MG [id number] Take 1 tablet by mouth daily TOLTERODINE TARTRATE 09552360269 No Longer Active Alina Castaneda MD PhD Active HYDROCODONE-ACETAMINOPHEN 5-325 MG TABS 2 tabs by mouth three times daily as needed for pain HYDROCODONE-ACETAMINOPHEN 69455934171 Active Rhett Luther DO Active TERESE CONTOUR TEST STRP monitor blood sugars 3x/day GLUCOSE BLOOD 20119738522 No Longer Active Alina Castaneda MD PhD Active EQL TRUETEST TEST STRP Test blood sugar TID GLUCOSE BLOOD 23846447004 No Longer Active Alina Castaneda MD PhD Active FLUTICASONE PROPIONATE 50 MCG/ACT SUSP 2 sprays each nostril qDay x 30 days FLUTICASONE PROPIONATE 69464617225 No Longer Active Alina Castaneda MD PhD Active IBUPROFEN 200 MG TABS 1 Q 6 hr. PRN IBUPROFEN 65718524000 No Longer Active Alina Castaneda MD PhD Active NIACIN ER 500 MG CR-TABS 4 qHS (for triglycerides) NIACIN 50336694434 No Longer Active Alina Castaneda MD PhD Active TRUETEST TEST STRP check sugars 4x/day GLUCOSE BLOOD 21249534401 Active Marvel MARROQUIN Active ALFUZOSIN HCL ER 10 MG [id number] 1 tablet daily ALFUZOSIN HCL 44904832388 Active Vanessa Hickey MD Active CLONAZEPAM 1 MG TABS 1 pill by mouth three times daily CLONAZEPAM 54871908980 Active Alina Castaneda MD PhD Active LOVAZA 1 GM CAPS 4 daily (for triglycerides) [id number] ETHYL ESTERS 73954979876 Active Alina Castaneda MD PhD Active SAPHRIS 5 MG SUBL by mouth twice a day ASENAPINE MALEATE 80229356102 No Longer Active Marvel MARROQUIN Active ACETAMINOPHEN 500 MG TABS 2 Q 6 hr. PRN ACETAMINOPHEN 17446208534 No Longer Active Marvel MARROQUIN Active VERAPAMIL HCL ER 120 MG NV85O-BLJ 1 pill by mouth twice a day, for headache prevention/control VERAPAMIL HCL 83572123040 Active Alina Castaneda MD PhD Active ORPHENADRINE CITRATE ER 100 MG [id number] 1 every 12 hr. as needed ORPHENADRINE CITRATE 63548170277 No Longer Active Alina Castaneda MD PhD Active NIACIN CR 500 MG CR-TABS 2 qHS NIACIN 02638106454 No Longer Active Alina Castaneda MD PhD Active AMOXICILLIN 500 MG CAPS 2 po BID x 10 days AMOXICILLIN 12451143421 No Longer Active Alina Castaneda MD PhD Active HYDROCODONE-ACETAMINOPHEN 7.5-325 MG TABS 1 four times a day as needed for pain HYDROCODONE-ACETAMINOPHEN 62831091277 No Longer Active Alina Castaneda MD PhD Active METFORMIN HCL ER 500 MG [id number] Take three tablets by mouth everyday METFORMIN HCL 07304633106 Active Alina Castaneda MD PhD Active DOXEPIN HCL 10 MG CAPS Take 1 tablet by mouth daily DOXEPIN HCL 38507279195 No Longer Active Salina Emely A Active NAVANE 10 MG CAPS 1/2 tablet twice a day THIOTHIXENE No Longer Active Salina Ervinford A Active CYCLOBENZAPRINE HCL 10 MG TABS 1/2 tablet by mouth every 8 hours as needed for muscle spasms CYCLOBENZAPRINE HCL 62859607383 No Longer Active Alina Castaneda MD PhD Active BACTROBAN 2 % CREAM apply to ear and nose twice daily MUPIROCIN CALCIUM 07996457429 No Longer Active Alina Castaneda MD PhD Active HYDROCODONE-ACETAMINOPHEN 5-325 MG TABS take one tablet by mouth every four hours as needed for pain HYDROCODONE-ACETAMINOPHEN 40225538587 No Longer Active Alina Castaneda MD PhD Active ZOLPIDEM TARTRATE 10 MG TABS take at bedtime ZOLPIDEM TARTRATE 40993215936 Active Alina Castaneda MD PhD Active ZYPREXA 5 MG TABS take one tablet by mouth every evening OLANZAPINE 34717874631 No Longer Active Alina Castaneda MD PhD Active ALBUTEROL SULFATE 0.083 % NEBU SOLN one vial per nebulizer TID and PRN cough/ soa ALBUTEROL SULFATE 41099875206 No Longer Active Alina Castaneda MD PhD Active GUAIFENESIN 600 MG [id number] 1 tablet by mouth twice daily if needed for cough GUAIFENESIN 41716140741 No Longer Active Marvel MARROQUIN Active AZITHROMYCIN 500 MG SOLR 1 po q day AZITHROMYCIN 82176928963 No Longer Active Alina Castaneda MD PhD Active METOPROLOL SUCCINATE 100 MG OR02S-LKM 1 by mouth daily for blood pressure METOPROLOL SUCCINATE 59615582524 Active Alina Castaneda MD PhD Active PROMETHAZINE-CODEINE 6.25-10 MG/5ML SYRP 1 tsp po q 6 hours prn cough PROMETHAZINE-CODEINE 30160574788 No Longer Active Alina Castaneda MD PhD Active CEFDINIR 300 MG CAPS by mouth twice a day CEFDINIR 29397077977 No Longer Active Alina Castaneda MD PhD Active METFORMIN HCL 500 MG [id number]-WAS Take 3 tablets by mouth everyday METFORMIN HCL 17526354531 No Longer Active Alina Castaneda MD PhD Active LEVEMIR 100 UNIT/ML SOLN 90 units SQ qHS INSULIN DETEMIR 04744154416 No Longer Active Marvel MARROQUIN Active TOPROL XL 100 MG [id number] 1 @ HS METOPROLOL SUCCINATE 36801651450 No Longer Active Marvel MARROQUIN Active ALLOPURINOL 300 MG TABS Take one by mouth daily ALLOPURINOL 81083126848 Active Alina Castaneda MD PhD Active ZYPREXA 10 MG TABS Take one by mouth daily OLANZAPINE 65130182766 No Longer Active Alina Castaneda MD PhD Active NOVOLOG 100 UNIT/ML SOLN 40 units with every meal INSULIN ASPART 44387825161 No Longer Active Alina Castaneda MD PhD Active VERAPAMIL HCL CR 120 MG TAB CR 1 qPM VERAPAMIL HCL 74238938362 No Longer Active [facility] Active ZYPREXA 15 MG TABS Take 1 tablet by mouth daily OLANZAPINE 77130490396 No Longer Active Marvel MARROQUIN Active LISINOPRIL 20 MG TABS 1 BID LISINOPRIL 77778728179 Active Alina Castaneda MD PhD Active ALBUTEROL SULFATE (2.5 MG/3ML) 0.083% NEBU 1 neb tid and prn cough ALBUTEROL SULFATE 62226341543 No Longer Active Alina Castaneda MD PhD Active FLUVOXAMINE MALEATE 100 MG TABS Take one (1) tablet by mouth am, 1/2 at noon, 1 pm FLUVOXAMINE MALEATE 98497510330 Active Alina Castaneda MD PhD Active TRAVATAN Z 0.004 % SOLN 1 gtt each eye daily TRAVOPROST 66743940680 Active CRYSTAL Suarez Active LANTUS 100 UNIT/ML SOLN 60 units sq q hs INSULIN GLARGINE 01504434942 No Longer Active CRYSTAL Suarez Active ALBUTEROL SULFATE (2.5 MG/3ML) 0.083% NEBU 1 neb tid and prn cough ALBUTEROL SULFATE (2.5 MG/3ML) 0.083% NEBU 474896 ALBUTEROL SULFATE Inactive ZYPREXA 15 MG TABS Take 1 tablet by mouth daily ZYPREXA 15 MG TABS 875853 OLANZAPINE Inactive VERAPAMIL HCL CR 120 MG TAB CR 1 qPM VERAPAMIL HCL CR 120 MG TAB CR VERAPAMIL HCL Inactive ZYPREXA 10 MG TABS Take one by mouth daily ZYPREXA 10 MG TABS 690766 OLANZAPINE Inactive TOPROL XL 100 MG [id number] 1 @ HS TOPROL XL 100 MG [id number] METOPROLOL SUCCINATE Inactive LEVEMIR 100 UNIT/ML SOLN 90 units SQ qHS LEVEMIR 100 UNIT/ML SOLN INSULIN DETEMIR Inactive PROMETHAZINE-CODEINE 6.25-10 MG/5ML SYRP 1 tsp po q 6 hours prn cough PROMETHAZINE-CODEINE 6.25-10 MG/5ML SYRP 552844 PROMETHAZINE- CODEINE Inactive GUAIFENESIN 600 MG [id number] 1 tablet by mouth twice daily if needed for cough GUAIFENESIN 600 MG SN65S-QZR GUAIFENESIN Inactive ALBUTEROL SULFATE 0.083 % NEBU SOLN one vial per nebulizer TID and PRN cough/ soa ALBUTEROL SULFATE 0.083 % NEBU SOLN 971414 ALBUTEROL SULFATE Inactive ZYPREXA 5 MG TABS take one tablet by mouth every evening ZYPREXA 5 MG TABS 734821 OLANZAPINE Inactive HYDROCODONE-ACETAMINOPHEN 5-325 MG TABS take one tablet by mouth every four hours as needed for pain HYDROCODONE-ACETAMINOPHEN 5-325 MG TABS 859699 HYDROCODONE-ACETAMINOPHEN Inactive BACTROBAN 2 % CREAM apply to ear and nose twice daily BACTROBAN 2 % CREAM 086696 MUPIROCIN CALCIUM Inactive CYCLOBENZAPRINE HCL 10 MG TABS 1/2 tablet by mouth every 8 hours as needed for muscle spasms CYCLOBENZAPRINE HCL 10 MG TABS 158664 CYCLOBENZAPRINE HCL Inactive NAVANE 10 MG CAPS 1/2 tablet twice a day NAVANE 10 MG CAPS THIOTHIXENE Inactive DOXEPIN HCL 10 MG CAPS Take 1 tablet by mouth daily DOXEPIN HCL 10 MG CAPS 5044990 DOXEPIN HCL Inactive HYDROCODONE-ACETAMINOPHEN 7.5-325 MG TABS 1 four times a day as needed for pain HYDROCODONE-ACETAMINOPHEN 7.5-325 MG TABS 418826 HYDROCODONE-ACETAMINOPHEN Inactive NIACIN CR 500 MG CR-TABS 2 qHS NIACIN CR 500 MG CR- TABS NIACIN Inactive ORPHENADRINE CITRATE ER 100 MG [id number] 1 every 12 hr. as needed ORPHENADRINE CITRATE ER 100 MG [id number] ORPHENADRINE CITRATE Inactive ACETAMINOPHEN 500 MG TABS 2 Q 6 hr. PRN ACETAMINOPHEN 500 MG TABS 733027 ACETAMINOPHEN Inactive SAPHRIS 5 MG SUBL by mouth twice a day SAPHRIS 5 MG SUBL ASENAPINE MALEATE Inactive NIACIN ER 500 MG CR-TABS 4 qHS (for triglycerides) NIACIN ER 500 MG CR-TABS NIACIN Inactive IBUPROFEN 200 MG TABS 1 Q 6 hr. PRN IBUPROFEN 200 MG TABS 478041 IBUPROFEN Inactive FLUTICASONE PROPIONATE 50 MCG/ACT SUSP 2 sprays each nostril qDay x 30 days FLUTICASONE PROPIONATE 50 MCG/ACT SUSP 357465 FLUTICASONE PROPIONATE Inactive EQL TRUETEST TEST STRP Test blood sugar TID EQL TRUETEST TEST STRP GLUCOSE BLOOD Inactive TERESE CONTOUR TEST STRP monitor blood sugars 3x/day TERESE CONTOUR TEST STRP GLUCOSE BLOOD Inactive DETROL LA 4 MG [id number] Take 1 tablet by mouth daily DETROL LA 4 MG [id number]-LMF TOLTERODINE TARTRATE Inactive ZYPREXA 7.5 MG TABS 1 at HS ZYPREXA 7.5 MG TABS 352764 OLANZAPINE Inactive THIOTHIXENE 5 MG CAPS by mouth twice a day THIOTHIXENE 5 MG CAPS 266094 THIOTHIXENE Inactive UROXATRAL 10 MG PR51J-NYG Take 1 tablet by mouth daily UROXATRAL 10 MG GB13A-DRU ALFUZOSIN HCL Inactive CEFDINIR 300 MG CAPS by mouth twice a day CEFDINIR 300 MG CAPS 451876 CEFDINIR Inactive AZITHROMYCIN 500 MG SOLR 1 po q day AZITHROMYCIN 500 MG SOLR 572625 AZITHROMYCIN Inactive AMOXICILLIN 500 MG CAPS 2 po BID x 10 days AMOXICILLIN 500 MG CAPS 054602 AMOXICILLIN Inactive Immunizations Vaccine Administration Date Value [...] Fluvirin, Fluarix, Agriflu(>=18 yo)) Fluzone (>3 yrs.) [[id number]] Influenza, seasonal, injectable pneumococcal immunization administered Pneumovax [...] HGBA1C - Chemistry sodium, serum 130 mmol/L 371-247 4816/06/09 potassium, serum 4.0 mmol/L 3.5-5.2 chloride, serum [...] 6.0 mg/dL 2.6-7.2 sodium, serum 130 mmol/L 000-801 0407/05/01 potassium, serum 5.2 mmol/L 3.5-5.2 chloride, serum [...] 0.40 mg/dL 0.00-1.00 cholesterol, serum 151 mg/dL 949-761 1872/05/01 triglyceride, serum, fasting 356 mg/dL 30-200 HDL [...] Panel - Chemistry sodium, serum 127 mmol/L 720-040 0979/10/27 potassium, serum 4.1 mmol/L 3.5-5.2 chloride, serum [...] HGBA1C - Chemistry sodium, serum 126 mmol/L 104-860 7470/02/26 potassium, serum 4.8 mmol/L 3.5-5.2 chloride, serum [...] mg/dL Encounters Code Encounter Date Provider Facility CPT-24112 Level 3 Est. Patient 08:54:46 CDT Alina Castaneda MD PhD [facility] CPT-37381 Level 3 Est. Patient 09:32:11 CDT Marvel MARROQUIN [facility] CPT-94360 Level 3 Est. Patient 12:02:49 CDT Alina Castaneda MD [facility]-08565 Level 3 Est. Patient 19:17:33 CDT Alina Castaneda MD [facility]-14203 Level 3 Est. Patient 13:19:10 [facility]-94172 Level 3 Est. Patient 08:20:05 CDT Alina Castaneda MD [facility]-52549 Level 3 Est. Patient 15:17:18 CDT Alina Castaneda MD [facility]-57877 Level 3 Est. Patient 14:25:36 CHEMICAL LABORATORY ASSISTANT [facility] Est[facility] Patient 10:09:15 CHEMICAL LABORATORY ASSISTANT [facility]86[facility] Level 3 Est. Patient 21:28:43 CDT Alina Castaneda MD [facility]-49817 Level 3 Est. Patient 15:20:11 CDT [facility] 4 Est[facility] Patient 19:08:12 CDT Alina Castaneda MD [facility]-34700 Level 3 Est. Patient 15:06:39 [facility] Est. Patient 17:48:15 CDT Alina Castaneda MD [facility]-64153 Level 3 Est. Patient 14:53:49 CDT Alina Castaneda MD [facility]-21945 Level 3 Est. Patient 09:35:16 CDT Alina [facility]eda MD [facility]25886 Level 3 Est. Patient 12:23:22 CDT Alina Castaneda MD [facility]-49162 Level 3 Est. Patient 16:19:15 CDT Alina Castaneda MD [facility]-52101 Level 3 Est. Patient 21:39:56 CHEMICAL LABORATORY ASSISTANT Alina Castaneda MD [facility]-86558 Level 4 Est. Patient 14:12:56 CHEMICAL LABORATORY ASSISTANT Alina Castaneda MD [facility]-92523 Level 2 Est. Patient 15:34:57 CHEMICAL LABORATORY ASSISTANT Alina Castaneda MD [facility]-29694 Level 3 Est. Patient 12:17:04 CHEMICAL LABORATORY ASSISTANT Alina Castaneda MD [facility]-24408 Level 3 Est. Patient 09:18:18 CHEMICAL LABORATORY ASSISTANT Marvel Charles [facility]-12565 Level 2 Est. Patient 21:50:24 CDT Alina Castaneda MD [facility]-35593 Level 3 Est. Patient 09:17:28 CDT Marvel Charles [facility] CPT-65293 Level 4 Est. Patient 18:54:02 CDT Alina Castaneda MD [facility]-53439 Level 3 Est. Patient 10:47:10 CDT Alina Castaneda MD [facility]-48861 Level 3 Est. Patient 09:22:20 CDT Marvel Charles [facility]-32736 Level 3 Est. Patient 16:39:43 CDT Marvel Charles [facility]-57595 Level 3 Est. Patient 16:05:16 CDT Alina Castaneda MD [facility] CPT-04335 Level 3 Est. Patient 00:29:15 CDT Alina Castaneda MD [facility] CPT-40639 Level 3 Est. Patient 10:49:22 CHEMICAL LABORATORY ASSISTANT Marvel Charles [facility] CPT-28044 Level 3 Est. Patient 21:30:19 CHEMICAL LABORATORY ASSISTANT Alina Castaneda MD [facility] CPT-31479 Level 4 Est. Patient 17:04:11 CHEMICAL LABORATORY ASSISTANT Marvel Charles [facility] CPT-74003 Level 3 Est. Patient 15:34:11 CHEMICAL LABORATORY ASSISTANT [place] [facility] CPT-95505 Level 2 Est. Patient 12:51:58 CHEMICAL LABORATORY ASSISTANT Alina Castaneda MD [facility] CPT-31349 Level 3 Est. Patient 13:20:01 CHEMICAL LABORATORY ASSISTANT Alina Castaneda MD [facility] CPT-26548 Level 3 Est. Patient 09:23:35 CDT Alina Castaneda MD [facility] Procedures Code Procedure Name Date Entry Date Standard Description CPT-G0008 Administration of Influenza Virus Vaccine 13:05:26 CDT CPT-11212 Fluzone Quadrivalent Intramuscular Suspension 0.5 ML 13: 05:26 CDT CPT-36326 Administration single or combination vaccine inc oral 11 :49:51 CDT CPT-48135 Pneumovax 11:49:51 CDT CPT-31813 Ribs unilateral 2V 12:37:22 CHEMICAL LABORATORY ASSISTANT CPT-29029 Chest 2V Frontal and Lat 17:15:26 CDT CPT-54874 Abx/Therapy Injection 18:54:02 CDT CPT-J0696 Rocephin 1000 mg (Ceftriaxone) 16:00:32 CDT CPT-63584 Chest 2V Frontal and Lat 15:26:45 CDT CPT-37776 Chest 2V Frontal and Lat 10:23:27 CDT CPT-64564 Venipuncture Draw Fee 10:11:00 CDT CPT-97475 Administration single or combination vaccine inc oral 11 :56:38 CDT CPT-70523 Influenza split virus > age 3 11:56:38 CDT CPT-51015 Venipuncture Draw Fee 08:49:54 CHEMICAL LABORATORY ASSISTANT CPT-76424 EKG Trac and Interp 17:54:19 CHEMICAL LABORATORY ASSISTANT
--- OUTSIDE RECORDS SUMMARY | 2018-07-02 20:37 | XMS REPORT | Clinical Summary ---
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 Active Alina Castaneda MD PhD Recurrent isolated sleep paralysis SPECIAL SCREENING FOR MALIGNANT NEOPLASM OF PROSTATE V76.44 Resolved Alina Castaneda MD PhD Screening for malignant neoplasms of prostate Hypoglycemia 251.2 Active Zaineh 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 LOPEZ Hypoglycemia, unspecified Diabetes mellitus, type II 250.00 Active Maliheh Ziglari TUNNEL DRIER OPERATOR Diabetes mellitus without mention of complication, [...] Generic Name ND Status Provider Patient Instruction MORPHINE SULFATE 30 MG TABS 1 pill by mouth nightly, for pain MORPHINE SULFATE 80629263987 Active Alina Castaneda MD PhD Active LATUDA 80 MG TABS 1 tab by mouth every evening LURASIDONE HCL 17951874479 Active Alina Castaneda MD PhD Active UROXATRAL 10 MG [id number]-MNJ Take 1 tablet by mouth daily ALFUZOSIN HCL 33363867060 No Longer Active Alina Castaneda MD PhD Active THIOTHIXENE 5 MG CAPS by mouth twice a day THIOTHIXENE 21989286087 No Longer Active Alina Castaneda MD PhD Active ZYPREXA 7.5 MG TABS 1 at HS OLANZAPINE 41789900447 No Longer Active Alina Castaneda MD PhD Active HUMALOG 100 UNIT/ML SOLN Take 20 units with breakfast, 10u with lunch and suppetr. INSULIN LISPRO (HUMAN) 14095592954 Active Maliheh Ziglari TUNNEL DRIER OPERATOR Active LEVEMIR 100 UNIT/ML SOLN Take 70 u at 7-8pm INSULIN DETEMIR 80141543465 Active Maliheh Ziglari TUNNEL DRIER OPERATOR Active BD INSULIN SYRINGE 28G X 1/2" 1 ML MISC 1 four times per day INSULIN SYRINGE-NEEDLE U-100 58473152907 Active Maliheh Ziglari TUNNEL DRIER OPERATOR Active CYCLOBENZAPRINE HCL 10 MG TABS 1 tablet by mouth three times daily, scheduled CYCLOBENZAPRINE HCL 08853826483 Active Alina Castaneda MD PhD Active TOLTERODINE TARTRATE 2 MG TABS 1 pill twice daily, for bladder TOLTERODINE TARTRATE 93886146358 Active Alina Castaneda MD PhD Active DETROL LA 4 MG [id number]-FOS Take 1 tablet by mouth daily TOLTERODINE TARTRATE 77580436694 No Longer Active Alina Castaneda MD PhD Active HYDROCODONE-ACETAMINOPHEN 5-325 MG TABS 2 tabs by mouth three times daily as needed for pain HYDROCODONE-ACETAMINOPHEN 85982477915 Active Rhett W Ashkan DO Active TERESE CONTOUR TEST STRP monitor blood sugars 3x/day GLUCOSE BLOOD 11109258166 No Longer Active Alina Castaneda MD PhD Active EQL TRUETEST TEST STRP Test blood sugar TID GLUCOSE BLOOD 55160877294 No Longer Active Alina Castaneda MD PhD Active FLUTICASONE PROPIONATE 50 MCG/ACT SUSP 2 sprays each nostril qDay x 30 days FLUTICASONE PROPIONATE 10744068681 No Longer Active Alina Castaneda MD PhD Active IBUPROFEN 200 MG TABS 1 Q 6 hr. PRN IBUPROFEN 49214536808 No Longer Active Alina Castaneda MD PhD Active NIACIN ER 500 MG CR-TABS 4 qHS (for triglycerides) NIACIN 50508357435 No Longer Active Alina Castaneda MD PhD Active TRUETEST TEST STRP check sugars 4x/day GLUCOSE BLOOD 99939034127 Active Marevl MENDOZAP Active ALFUZOSIN HCL ER 10 MG [id number] 1 tablet daily ALFUZOSIN HCL 23978379055 Active Vanessa Hickey MD Active CLONAZEPAM 1 MG TABS 1 pill by mouth three times daily CLONAZEPAM 33884738131 Active Alina Castaneda MD PhD Active LOVAZA 1 GM CAPS 4 daily (for triglycerides) XUTLO-3-MKLW ETHYL ESTERS 64699104205 Active Alina Castaneda MD PhD Active SAPHRIS 5 MG SUBL by mouth twice a day ASENAPINE MALEATE 00420070393 No Longer Active Marvel Thrustonari TUNNEL DRIER OPERATOR Active ACETAMINOPHEN 500 MG TABS 2 Q 6 hr. PRN ACETAMINOPHEN 82455614619 No Longer Active Marvel MENDOZAP Active VERAPAMIL HCL ER 120 MG [id number] 1 pill by mouth twice a day, for headache prevention/control VERAPAMIL HCL 40757330521 Active Alina Castaneda MD PhD Active ORPHENADRINE CITRATE ER 100 MG WL71C-VDJ 1 every 12 hr. as needed ORPHENADRINE CITRATE 10601850254 No Longer Active Alina Castaneda MD PhD Active NIACIN CR 500 MG CR-TABS 2 qHS NIACIN 07644620236 No Longer Active Alina Castaneda MD PhD Active AMOXICILLIN 500 MG CAPS 2 po BID x 10 days AMOXICILLIN 68877550317 No Longer Active Alina Catsaneda MD PhD Active HYDROCODONE-ACETAMINOPHEN 7.5-325 MG TABS 1 four times a day as needed for pain HYDROCODONE-ACETAMINOPHEN 99618713071 No Longer Active Alina Castaneda MD PhD Active METFORMIN HCL ER 500 MG OY10R-NRS Take three tablets by mouth everyday METFORMIN HCL 19590213762 Active Alina Castaneda MD PhD Active DOXEPIN HCL 10 MG CAPS Take 1 tablet by mouth daily DOXEPIN HCL 28978293364 No Longer Active Salina Han [facility] Active NAVANE 10 MG CAPS 1/2 tablet twice a day THIOTHIXENE No Longer Active Salina Han [facility] Active CYCLOBENZAPRINE HCL 10 MG TABS 1/2 tablet by mouth every 8 hours as needed for muscle spasms CYCLOBENZAPRINE HCL 32637544185 No Longer Active Alina Castaneda MD PhD Active BACTROBAN 2 % CREAM apply to ear and nose twice daily MUPIROCIN CALCIUM 49320637870 No Longer Active Alina Castaneda MD PhD Active HYDROCODONE-ACETAMINOPHEN 5-325 MG TABS take one tablet by mouth every four hours as needed for pain HYDROCODONE-ACETAMINOPHEN 01303796908 No Longer Active Alina Castaneda MD PhD Active ZOLPIDEM TARTRATE 10 MG TABS take at bedtime ZOLPIDEM TARTRATE 50624006245 Active Alina Castaneda MD PhD Active ZYPREXA 5 MG TABS take one tablet by mouth every evening OLANZAPINE 66329097620 No Longer Active Alina Castaneda MD PhD Active ALBUTEROL SULFATE 0.083 % NEBU SOLN one vial per nebulizer TID and PRN cough/ soa ALBUTEROL SULFATE 84359579364 No Longer Active Alina Castaneda MD PhD Active GUAIFENESIN 600 MG YN02N-CNC 1 tablet by mouth twice daily if needed for cough GUAIFENESIN 35397666224 No Longer Active Marvel MARROQUIN Active AZITHROMYCIN 500 MG SOLR 1 po q day AZITHROMYCIN 85872535884 No Longer Active Alina Castaneda MD PhD Active METOPROLOL SUCCINATE 100 MG BL32P-IAQ 1 by mouth daily for blood pressure METOPROLOL SUCCINATE 47579642933 Active Alina Castaneda MD PhD Active PROMETHAZINE-CODEINE 6.25-10 MG/5ML SYRP 1 tsp po q 6 hours prn cough PROMETHAZINE-CODEINE 73685578995 No Longer Active Alina Castaneda MD PhD Active CEFDINIR 300 MG CAPS by mouth twice a day CEFDINIR 18609795512 No Longer Active Alina Castaneda MD PhD Active METFORMIN HCL 500 MG RM34C-BVK Take 3 tablets by mouth everyday METFORMIN HCL 74500030672 No Longer Active Alina Castaneda MD PhD Active LEVEMIR 100 UNIT/ML SOLN 90 units SQ qHS INSULIN DETEMIR 00202532953 No Longer Active Marvel MARROQUIN Active TOPROL XL 100 MG KD44G-PVF 1 @ HS METOPROLOL SUCCINATE 68032236374 No Longer Active Marvel MARROQUIN Active ALLOPURINOL 300 MG TABS Take one by mouth daily ALLOPURINOL 18053764296 Active Alina Castaneda MD PhD Active ZYPREXA 10 MG TABS Take one by mouth daily OLANZAPINE 22850796583 No Longer Active Alina Castaneda MD PhD Active NOVOLOG 100 UNIT/ML SOLN 40 units with every meal INSULIN ASPART 95794492906 No Longer Active Alina Castaneda MD PhD Active VERAPAMIL HCL CR 120 MG TAB CR 1 qPM VERAPAMIL HCL 39049273638 No Longer Active Salina Han [facility] Active ZYPREXA 15 MG TABS Take 1 tablet by mouth daily OLANZAPINE 80100058408 No Longer Active Marvel Charles TUNNEL DRIER OPERATOR Active LISINOPRIL 20 MG TABS 1 BID LISINOPRIL 69798907865 Active Alina Castaneda MD PhD Active ALBUTEROL SULFATE (2.5 MG/3ML) 0.083% NEBU 1 neb tid and prn cough ALBUTEROL SULFATE 92736651811 No Longer Active Alina Castaneda MD PhD Active FLUVOXAMINE MALEATE 100 MG TABS Take one (1) tablet by mouth am, 1/2 at noon, 1 pm FLUVOXAMINE MALEATE 40088036432 Active Alina Castaneda MD PhD Active TRAVATAN Z 0.004 % SOLN 1 gtt each eye daily TRAVOPROST 97556307334 Active CRYSTAL Suarez Active LANTUS 100 UNIT/ML SOLN 60 units sq q hs INSULIN GLARGINE 19352561662 No Longer Active CRYSTAL Suarez Active ALBUTEROL SULFATE (2.5 MG/3ML) 0.083% NEBU 1 neb tid and prn cough ALBUTEROL SULFATE (2.5 MG/3ML) 0.083% NEBU 238252 ALBUTEROL SULFATE Inactive ZYPREXA 15 MG TABS Take 1 tablet by mouth daily ZYPREXA 15 MG TABS 500477 OLANZAPINE Inactive VERAPAMIL HCL CR 120 MG TAB CR 1 qPM VERAPAMIL HCL CR 120 MG TAB CR VERAPAMIL HCL Inactive ZYPREXA 10 MG TABS Take one by mouth daily ZYPREXA 10 MG TABS 153763 OLANZAPINE Inactive TOPROL XL 100 MG IO75V-YES 1 @ HS TOPROL XL 100 MG AQ55X-HBM METOPROLOL SUCCINATE Inactive LEVEMIR 100 UNIT/ML SOLN 90 units SQ qHS LEVEMIR 100 UNIT/ML SOLN INSULIN DETEMIR Inactive PROMETHAZINE-CODEINE 6.25-10 MG/5ML SYRP 1 tsp po q 6 hours prn cough PROMETHAZINE-CODEINE 6.25-10 MG/5ML SYRP 928825 PROMETHAZINE- CODEINE Inactive GUAIFENESIN 600 MG WZ12R-JKO 1 tablet by mouth twice daily if needed for cough GUAIFENESIN 600 MG DH90D-GGW GUAIFENESIN Inactive ALBUTEROL SULFATE 0.083 % NEBU SOLN one vial per nebulizer TID and PRN cough/ soa ALBUTEROL SULFATE 0.083 % NEBU SOLN 082755 ALBUTEROL SULFATE Inactive ZYPREXA 5 MG TABS take one tablet by mouth every evening ZYPREXA 5 MG TABS 713937 OLANZAPINE Inactive HYDROCODONE-ACETAMINOPHEN 5-325 MG TABS take one tablet by mouth every four hours as needed for pain HYDROCODONE-ACETAMINOPHEN 5-325 MG TABS 407221 HYDROCODONE-ACETAMINOPHEN Inactive BACTROBAN 2 % CREAM apply to ear and nose twice daily BACTROBAN 2 % CREAM 050915 MUPIROCIN CALCIUM Inactive CYCLOBENZAPRINE HCL 10 MG TABS 1/2 tablet by mouth every 8 hours as needed for muscle spasms CYCLOBENZAPRINE HCL 10 MG TABS 335094 CYCLOBENZAPRINE HCL Inactive NAVANE 10 MG CAPS 1/2 tablet twice a day NAVANE 10 MG CAPS THIOTHIXENE Inactive DOXEPIN HCL 10 MG CAPS Take 1 tablet by mouth daily DOXEPIN HCL 10 MG CAPS 4630240 DOXEPIN HCL Inactive HYDROCODONE-ACETAMINOPHEN 7.5-325 MG TABS 1 four times a day as needed for pain HYDROCODONE-ACETAMINOPHEN 7.5-325 MG TABS 900967 HYDROCODONE-ACETAMINOPHEN Inactive NIACIN CR 500 MG CR-TABS 2 qHS NIACIN CR 500 MG CR- TABS NIACIN Inactive ORPHENADRINE CITRATE ER 100 MG RA65H-YHD 1 every 12 hr. as needed ORPHENADRINE CITRATE ER 100 MG [id number]-UFB ORPHENADRINE CITRATE Inactive ACETAMINOPHEN 500 MG TABS 2 Q 6 hr. PRN ACETAMINOPHEN 500 MG TABS 572715 ACETAMINOPHEN Inactive SAPHRIS 5 MG SUBL by mouth twice a day SAPHRIS 5 MG SUBL ASENAPINE MALEATE Inactive NIACIN ER 500 MG CR-TABS 4 qHS (for triglycerides) NIACIN ER 500 MG CR-TABS NIACIN Inactive IBUPROFEN 200 MG TABS 1 Q 6 hr. PRN IBUPROFEN 200 MG TABS 440490 IBUPROFEN Inactive FLUTICASONE PROPIONATE 50 MCG/ACT SUSP 2 sprays each nostril qDay x 30 days FLUTICASONE PROPIONATE 50 MCG/ACT SUSP 894042 FLUTICASONE PROPIONATE Inactive EQL TRUETEST TEST STRP Test blood sugar TID EQL TRUETEST TEST STRP GLUCOSE BLOOD Inactive TERESE CONTOUR TEST STRP monitor blood sugars 3x/day TERESE CONTOUR TEST STRP GLUCOSE BLOOD Inactive DETROL LA 4 MG JW11R-WSI Take 1 tablet by mouth daily DETROL LA 4 MG FY42W-FPI TOLTERODINE TARTRATE Inactive ZYPREXA 7.5 MG TABS 1 at HS ZYPREXA 7.5 MG TABS 606491 OLANZAPINE Inactive THIOTHIXENE 5 MG CAPS by mouth twice a day THIOTHIXENE 5 MG CAPS 187893 THIOTHIXENE Inactive UROXATRAL 10 MG RQ42E-IXT Take 1 tablet by mouth daily UROXATRAL 10 MG HP29C-AWT ALFUZOSIN HCL Inactive CEFDINIR 300 MG CAPS by mouth twice a day CEFDINIR 300 MG CAPS 350937 CEFDINIR Inactive AZITHROMYCIN 500 MG SOLR 1 po q day AZITHROMYCIN 500 MG SOLR 468119 AZITHROMYCIN Inactive AMOXICILLIN 500 MG CAPS 2 po BID x 10 days AMOXICILLIN 500 MG CAPS 219820 AMOXICILLIN Inactive Immunizations Vaccine Administration Date Value [...] Fluvirin, Fluarix, Agriflu(>=18 yo)) Fluzone (>3 yrs.) [ENO557] Influenza, seasonal, injectable pneumococcal immunization administered Pneumovax 23 [CVX33] pneumococcal polysaccharide vaccine, 23 valent Vital Signs Date Name Value Unit Range Description blood pressure, diastolic 68 mm[Hg] BP garcia blood pressure, systolic 118 mm[Hg] BP sys pulse rate E&M 75 /min Heart rate temperature E&M 97.8 [degF] Body temperature weight E&M 242 [lb_av] Weight Measured blood pressure, diastolic, [...] rate weight E&M 259 [lb_av] Weight Measured Diagnostic Results Date Name Value Unit Range Description Lab Report: Basic Metabolic Panel, HGBA1C - Chemistry calcium, serum 9.5 mg/dL 8.5-10.1 urea nitrogen, blood 14 mg/dL 7-18 creatinine, serum 1.30 mg/dL 0.60-1.30 hemoglobin A1C, blood, as % of total hemoglobin 6.0 % 4.3-6.0 blood glucose 60 mg/dL 65-110 carbon dioxide, venous blood 22.1 mmol/L 21.0-32.0 chloride, serum 92 mmol/L 98-107 potassium, serum 4.0 mmol/L 3.5-5.2 sodium, serum 130 mmol/L 136-145 Lab Report: CBC, CMP, Lipid Panel, TSH, PSA, microalbumin, uric acid - Chemistry albumin/creatinine ratio, urine < 30 mg/g mg/g{creat} 0-29 uric acid, serum 6.0 mg/dL 2.6-7.2 sodium, serum 130 mmol/L 424-745 1116/05/01 potassium, serum 5.2 mmol/L 3.5-5.2 chloride, serum [...] 0.40 mg/dL 0.00-1.00 cholesterol, serum 151 mg/dL 404-253 2644/05/01 triglyceride, serum, fasting 356 mg/dL 30-200 HDL [...] Panel - Chemistry sodium, serum 127 mmol/L 510-952 5093/10/27 potassium, serum 4.1 mmol/L 3.5-5.2 chloride, serum [...] HGBA1C - Chemistry sodium, serum 126 mmol/L 782-065 8006/02/26 potassium, serum 4.8 mmol/L 3.5-5.2 chloride, serum [...] 200 mg/dL cholesterol, target level 200 mg/dL Encounters Code Encounter Date Provider Facility CPT-83006 Level 3 Est. Patient 21:54:06 CDT Vanessa Hickey MD [facility] CPT-15550 Level 3 Est. Patient 08:54:46 CDT Alina Castaneda MD PhD [facility] CPT-07208 Level 3 Est. Patient 09:32:11 CDT Marvel MARROQUIN [facility] CPT-97740 Level 3 Est. Patient 12:02:49 CDT Alina Castaneda MD PhD [facility] CPT-97040 Level 3 Est. Patient 19:17:33 CDT Alina Castaneda MD PhD [facility] CPT-13287 Level 3 Est. Patient 13:19:10 CDT Marvel Charles [facility] CPT-22736 Level 3 Est. Patient 08:20:05 CDT Alina Castaneda MD [facility]-22039 Level 3 Est. Patient 15:17:18 CDT Alina Castaneda MD [facility]-44970 Level 3 Est. Patient 14:25:36 MARKETING ANALYST Marvel Charles [facility] CPT-67705 Level 3 Est. Patient 10:09:15 MARKETING ANALYST Marvel Charles [facility]-71253 Level 3 Est. Patient 21:28:43 CDT Alina Castaneda MD [facility]-34456 Level 3 Est. Patient 15:20:11 [facility] Est[facility] Patient 19:08:12 CDT Alina Castaneda MD [facility]-03532 Level 3 Est. Patient 15:06:39 CDT [facility] Level 4 Est. Patient 17:48:15 CDT Alina Castaneda MD [facility]-13555 Level 3 Est. Patient 14:53:49 CDT Alina Castaneda MD [facility]-57679 Level 3 Est. Patient 09:35:16 CDT Alina Castaneda MD [facility]-19198 Level 3 Est. Patient 12:23:22 CDT Alina Castaneda MD [facility]-64087 Level 3 Est. Patient 16:19:15 CDT Alina Castaneda MD [facility]62718 Level 3 Est. Patient 21:39:56 MARKETING ANALYST Alina Castaneda MD [facility]-04555 Level 4 Est. Patient 14:12:56 MARKETING ANALYST Alina Castaneda MD [facility]-01408 Level 2 Est. Patient 15:34:57 MARKETING ANALYST Alina Castaneda MD [facility]-27378 Level 3 Est. Patient 12:17:04 MARKETING ANALYST Alina Castaneda MD [facility]-18486 Level 3 Est. Patient 09:18:18 MARKETING ANALYST Marvel [facility]-17592 Level 2 Est. Patient 21:50:24 CDT Alina Castaneda MD [facility]-51054 Level 3 Est. Patient 09:17:28 CDT Marvel [facility]-82549 Level 4 Est. Patient 18:54:02 CDT Alina Castaneda MD [facility]-02526 Level 3 Est. Patient 10:47:10 CDT Alina Castaneda MD [facility]-62071 Level 3 Est. Patient 09:22:20 CDT Marvel [facility]-66152 Level 3 Est. Patient 16:39:43 CDT Marvel [facility]-86128 Level 3 Est. Patient 16:05:16 CDT Alina Castaneda MD [facility]-10880 Level 3 Est. Patient 00:29:15 CDT Alina Castaneda MD [facility]-32272 Level 3 Est. Patient 10:49:22 MARKETING ANALYST [facility] Level 3 Est. Patient 21:30:19 MARKETING ANALYST Alina Castaneda MD [facility] CPT-90197 Level 4 Est. Patient 17:04:11 MARKETING ANALYST Marvel Mackenzieestela [facility] CPT-69668 Level 3 Est. Patient 15:34:11 MARKETING ANALYST Marvel Charles [facility] CPT-01872 Level 2 Est. Patient 12:51:58 MARKETING ANALYST Alina Castaneda MD [facility] CPT-68754 Level 3 Est. Patient 13:20:01 MARKETING ANALYST Alina Castaneda MD [facility] CPT-09229 Level 3 Est. Patient 09:23:35 CDT Alina Castaneda MD [facility] Procedures Code Procedure Name Date Entry Date Standard Description CPT-21299 Bladder Scan 21:54:06 CDT CPT-G0008 Administration of Influenza Virus Vaccine 13:05:26 CDT CPT-69461 Fluzone Quadrivalent Intramuscular Suspension 0.5 ML 13: 05:26 CDT CPT-61641 Administration single or combination vaccine inc oral 11 :49:51 CDT CPT-35337 Pneumovax 11:49:51 CDT CPT-43559 Ribs unilateral 2V 12:37:22 MARKETING ANALYST CPT-60078 Chest 2V Frontal and Lat 17:15:26 CDT CPT-29830 Abx/Therapy Injection 18:54:02 CDT CPT-J0696 Rocephin 1000 mg (Ceftriaxone) 16:00:32 CDT CPT-19018 Chest 2V Frontal and Lat 15:26:45 CDT CPT-50223 Chest 2V Frontal and Lat 10:23:27 CDT CPT-24366 Venipuncture Draw Fee 10:11:00 CDT CPT-44827 Administration single or combination vaccine inc oral 11 :56:38 CDT CPT-78249 Influenza split virus > age 3 11:56:38 CDT CPT-96715 Venipuncture Draw Fee 08:49:54 MARKETING ANALYST CPT-49180 EKG Trac and Interp 17:54:19 MARKETING ANALYST
--- OUTSIDE RECORDS SUMMARY | 2018-07-02 20:38 | XMS REPORT | Clinical Summary ---
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 Active Alina Castaneda MD PhD Recurrent isolated sleep paralysis SPECIAL SCREENING FOR MALIGNANT NEOPLASM OF PROSTATE V76.44 Resolved Alina Castaneda MD PhD Screening for malignant neoplasms of prostate Hypoglycemia 251.2 Active Zaineh 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 LOPEZ Hypoglycemia, unspecified Diabetes mellitus, type II 250.00 Active Maliheh Ziglari SWING MANAGER Diabetes mellitus without mention of complication, [...] by mouth nightly, for pain MORPHINE SULFATE 46271101559 Active Rhett Luther DO Active LATUDA 80 MG TABS 1 tab by mouth every evening LURASIDONE HCL 77564183003 Active Alina Castaneda MD PhD Active UROXATRAL 10 MG [id number] Take 1 tablet by mouth daily ALFUZOSIN HCL 29922497101 No Longer Active Alina Castaneda MD PhD Active THIOTHIXENE 5 MG CAPS by mouth twice a day THIOTHIXENE 92733224604 No Longer Active Alina Castaneda MD PhD Active ZYPREXA 7.5 MG TABS 1 at HS OLANZAPINE 13604385284 No Longer Active Alina Castaneda MD PhD Active HUMALOG 100 UNIT/ML SOLN Take 20 units with breakfast, 10u with lunch and suppetr. INSULIN LISPRO (HUMAN) 45866697904 Active Maliheh Ziglari SWING MANAGER Active LEVEMIR 100 UNIT/ML SOLN Take 70 u at 7-8pm INSULIN DETEMIR 50447392493 Active Maliheh Ziglari SWING MANAGER Active BD INSULIN SYRINGE 28G X 1/2" 1 ML MISC 1 four times per day INSULIN SYRINGE-NEEDLE U-100 45704446236 Active Maliheh Ziglari SWING MANAGER Active CYCLOBENZAPRINE HCL 10 MG TABS 1 tablet by mouth three times daily, scheduled CYCLOBENZAPRINE HCL 98333903054 Active Alina Castaneda MD PhD Active TOLTERODINE TARTRATE 2 MG TABS 1 pill twice daily, for bladder TOLTERODINE TARTRATE 40005314956 Active Alina Castaneda MD PhD Active DETROL LA 4 MG [id number] Take 1 tablet by mouth daily TOLTERODINE TARTRATE 26150166269 No Longer Active Alina Castaneda MD PhD Active HYDROCODONE-ACETAMINOPHEN 5-325 MG TABS 2 tabs by mouth three times daily as needed for pain HYDROCODONE-ACETAMINOPHEN 27909467520 Active Rhett W Ashkan DO Active TERESE CONTOUR TEST STRP monitor blood sugars 3x/day GLUCOSE BLOOD 71060548587 No Longer Active Alina Castaneda MD PhD Active EQL TRUETEST TEST STRP Test blood sugar TID GLUCOSE BLOOD 38673554435 No Longer Active Alina Castaneda MD PhD Active FLUTICASONE PROPIONATE 50 MCG/ACT SUSP 2 sprays each nostril qDay x 30 days FLUTICASONE PROPIONATE 62346216636 No Longer Active Alina Castaneda MD PhD Active IBUPROFEN 200 MG TABS 1 Q 6 hr. PRN IBUPROFEN 79673042756 No Longer Active Alina Castaneda MD PhD Active NIACIN ER 500 MG CR-TABS 4 qHS (for triglycerides) NIACIN 89900175866 No Longer Active Alina Castaneda MD PhD Active TRUETEST TEST STRP check sugars 4x/day GLUCOSE BLOOD 59306751701 Active Marvel MARROQUIN Active ALFUZOSIN HCL ER 10 MG [id number] 1 tablet daily ALFUZOSIN HCL 96885818600 Active Vanessa Hickey MD Active CLONAZEPAM 1 MG TABS 1 pill by mouth three times daily CLONAZEPAM 06095875460 Active Alina Castaneda MD PhD Active LOVAZA 1 GM CAPS 4 daily (for triglycerides) [id number] ETHYL ESTERS 61346804707 Active Alina Castaneda MD PhD Active SAPHRIS 5 MG SUBL by mouth twice a day ASENAPINE MALEATE 79110208957 No Longer Active Marvel MENDOZAP Active ACETAMINOPHEN 500 MG TABS 2 Q 6 hr. PRN ACETAMINOPHEN 30169439831 No Longer Active Marvel MENDOZAP Active VERAPAMIL HCL ER 120 MG [id number] 1 pill by mouth twice a day, for headache prevention/control VERAPAMIL HCL 55093356699 Active Alina Castaneda MD PhD Active ORPHENADRINE CITRATE ER 100 MG [id number]-BIK 1 every 12 hr. as needed ORPHENADRINE CITRATE 38493727278 No Longer Active Alina Castaneda MD PhD Active NIACIN CR 500 MG CR-TABS 2 qHS NIACIN 61524529847 No Longer Active Alina Castaneda MD PhD Active AMOXICILLIN 500 MG CAPS 2 po BID x 10 days AMOXICILLIN 73783533713 No Longer Active Alina Castaneda MD PhD Active HYDROCODONE-ACETAMINOPHEN 7.5-325 MG TABS 1 four times a day as needed for pain HYDROCODONE-ACETAMINOPHEN 55172957785 No Longer Active Alina Castaneda MD PhD Active METFORMIN HCL ER 500 MG [id number] Take three tablets by mouth everyday METFORMIN HCL 12054565483 Active Alina Castaneda MD PhD Active DOXEPIN HCL 10 MG CAPS Take 1 tablet by mouth daily DOXEPIN HCL 64833397888 No Longer Active Salina Han [facility] Active NAVANE 10 MG CAPS 1/2 tablet twice a day THIOTHIXENE No Longer Active Salina Han [facility] Active CYCLOBENZAPRINE HCL 10 MG TABS 1/2 tablet by mouth every 8 hours as needed for muscle spasms CYCLOBENZAPRINE HCL 59366269207 No Longer Active Alina Castaneda MD PhD Active BACTROBAN 2 % CREAM apply to ear and nose twice daily MUPIROCIN CALCIUM 22408689373 No Longer Active Alina Castaneda MD PhD Active HYDROCODONE-ACETAMINOPHEN 5-325 MG TABS take one tablet by mouth every four hours as needed for pain HYDROCODONE-ACETAMINOPHEN 84805745825 No Longer Active Alina Castaneda MD PhD Active ZOLPIDEM TARTRATE 10 MG TABS take at bedtime ZOLPIDEM TARTRATE 32127954419 Active Alina Castaneda MD PhD Active ZYPREXA 5 MG TABS take one tablet by mouth every evening OLANZAPINE 65777114042 No Longer Active Alina Castaneda MD PhD Active ALBUTEROL SULFATE 0.083 % NEBU SOLN one vial per nebulizer TID and PRN cough/ soa ALBUTEROL SULFATE 77084729624 No Longer Active Alina Castaneda MD PhD Active GUAIFENESIN 600 MG [id number] 1 tablet by mouth twice daily if needed for cough GUAIFENESIN 24796029611 No Longer Active Marvel MARROQUIN Active AZITHROMYCIN 500 MG SOLR 1 po q day AZITHROMYCIN 97769547530 No Longer Active Alina Castaneda MD PhD Active METOPROLOL SUCCINATE 100 MG PA40E-XXN 1 by mouth daily for blood pressure METOPROLOL SUCCINATE 33060094935 Active Alina Castaneda MD PhD Active PROMETHAZINE-CODEINE 6.25-10 MG/5ML SYRP 1 tsp po q 6 hours prn cough PROMETHAZINE-CODEINE 48858829113 No Longer Active Alina Castaneda MD PhD Active CEFDINIR 300 MG CAPS by mouth twice a day CEFDINIR 43118988762 No Longer Active Alina Castaneda MD PhD Active METFORMIN HCL 500 MG [id number]-ZXY Take 3 tablets by mouth everyday METFORMIN HCL 45944710291 No Longer Active Alina Castaneda MD PhD Active LEVEMIR 100 UNIT/ML SOLN 90 units SQ qHS INSULIN DETEMIR 43214785493 No Longer Active Marvel MARROQUIN Active TOPROL XL 100 MG FA78M-ANE 1 @ HS METOPROLOL SUCCINATE 26514124677 No Longer Active Marvel MARROQUIN Active ALLOPURINOL 300 MG TABS Take one by mouth daily ALLOPURINOL 64116594213 Active Alina Castaneda MD PhD Active ZYPREXA 10 MG TABS Take one by mouth daily OLANZAPINE 67074985268 No Longer Active Alina Castaneda MD PhD Active NOVOLOG 100 UNIT/ML SOLN 40 units with every meal INSULIN ASPART 59608251145 No Longer Active Alina Castaneda MD PhD Active VERAPAMIL HCL CR 120 MG TAB CR 1 qPM VERAPAMIL HCL 09596773396 No Longer Active Salina Han [facility] Active ZYPREXA 15 MG TABS Take 1 tablet by mouth daily OLANZAPINE 21087047142 No Longer Active Marvel Charles SWING MANAGER Active LISINOPRIL 20 MG TABS 1 BID LISINOPRIL 33138344255 Active Alina Castaneda MD PhD Active ALBUTEROL SULFATE (2.5 MG/3ML) 0.083% NEBU 1 neb tid and prn cough ALBUTEROL SULFATE 44597115484 No Longer Active Alina Castaneda MD PhD Active FLUVOXAMINE MALEATE 100 MG TABS Take one (1) tablet by mouth am, 05/25 at noon, 1 pm FLUVOXAMINE MALEATE 18744463504 Active Alina Castaneda MD PhD Active TRAVATAN Z 0.004 % SOLN 1 gtt each eye daily TRAVOPROST 61005645381 Active CRYSTAL Suarez Active LANTUS 100 UNIT/ML SOLN 60 units sq q hs INSULIN GLARGINE 06254674784 No Longer Active CRYSTAL Suarez Active ALBUTEROL SULFATE (2.5 MG/3ML) 0.083% NEBU 1 neb tid and prn cough ALBUTEROL SULFATE (2.5 MG/3ML) 0.083% NEBU 440591 ALBUTEROL SULFATE Inactive ZYPREXA 15 MG TABS Take 1 tablet by mouth daily ZYPREXA 15 MG TABS 446007 OLANZAPINE Inactive VERAPAMIL HCL CR 120 MG TAB CR 1 qPM VERAPAMIL HCL CR 120 MG TAB CR VERAPAMIL HCL Inactive ZYPREXA 10 MG TABS Take one by mouth daily ZYPREXA 10 MG TABS 797902 OLANZAPINE Inactive TOPROL XL 100 MG [id number] 1 @ HS TOPROL XL 100 MG [id number] METOPROLOL SUCCINATE Inactive LEVEMIR 100 UNIT/ML SOLN 90 units SQ qHS LEVEMIR 100 UNIT/ML SOLN INSULIN DETEMIR Inactive PROMETHAZINE-CODEINE 6.25-10 MG/5ML SYRP 1 tsp po q 6 hours prn cough PROMETHAZINE-CODEINE 6.25-10 MG/5ML SYRP 793475 PROMETHAZINE- CODEINE Inactive GUAIFENESIN 600 MG IC22Y-QJH 1 tablet by mouth twice daily if needed for cough GUAIFENESIN 600 MG [id number] GUAIFENESIN Inactive ALBUTEROL SULFATE 0.083 % NEBU SOLN one vial per nebulizer TID and PRN cough/ soa ALBUTEROL SULFATE 0.083 % NEBU SOLN 419771 ALBUTEROL SULFATE Inactive ZYPREXA 5 MG TABS take one tablet by mouth every evening ZYPREXA 5 MG TABS 476117 OLANZAPINE Inactive HYDROCODONE-ACETAMINOPHEN 5-325 MG TABS take one tablet by mouth every four hours as needed for pain HYDROCODONE-ACETAMINOPHEN 5-325 MG TABS 305602 HYDROCODONE-ACETAMINOPHEN Inactive BACTROBAN 2 % CREAM apply to ear and nose twice daily BACTROBAN 2 % CREAM 084641 MUPIROCIN CALCIUM Inactive CYCLOBENZAPRINE HCL 10 MG TABS 1/2 tablet by mouth every 8 hours as needed for muscle spasms CYCLOBENZAPRINE HCL 10 MG TABS 169463 CYCLOBENZAPRINE HCL Inactive NAVANE 10 MG CAPS 1/2 tablet twice a day NAVANE 10 MG CAPS THIOTHIXENE Inactive DOXEPIN HCL 10 MG CAPS Take 1 tablet by mouth daily DOXEPIN HCL 10 MG CAPS 2564732 DOXEPIN HCL Inactive HYDROCODONE-ACETAMINOPHEN 7.5-325 MG TABS 1 four times a day as needed for pain HYDROCODONE-ACETAMINOPHEN 7.5-325 MG TABS 949555 HYDROCODONE-ACETAMINOPHEN Inactive NIACIN CR 500 MG CR-TABS 2 qHS NIACIN CR 500 MG CR- TABS NIACIN Inactive ORPHENADRINE CITRATE ER 100 MG [id number] 1 every 12 hr. as needed ORPHENADRINE CITRATE ER 100 MG [id number] ORPHENADRINE CITRATE Inactive ACETAMINOPHEN 500 MG TABS 2 Q 6 hr. PRN ACETAMINOPHEN 500 MG TABS 035264 ACETAMINOPHEN Inactive SAPHRIS 5 MG SUBL by mouth twice a day SAPHRIS 5 MG SUBL ASENAPINE MALEATE Inactive NIACIN ER 500 MG CR-TABS 4 qHS (for triglycerides) NIACIN ER 500 MG CR-TABS NIACIN Inactive IBUPROFEN 200 MG TABS 1 Q 6 hr. PRN IBUPROFEN 200 MG TABS 274681 IBUPROFEN Inactive FLUTICASONE PROPIONATE 50 MCG/ACT SUSP 2 sprays each nostril qDay x 30 days FLUTICASONE PROPIONATE 50 MCG/ACT SUSP 396552 FLUTICASONE PROPIONATE Inactive EQL TRUETEST TEST STRP Test blood sugar TID EQL TRUETEST TEST STRP GLUCOSE BLOOD Inactive TERESE CONTOUR TEST STRP monitor blood sugars 3x/day TERESE CONTOUR TEST STRP GLUCOSE BLOOD Inactive DETROL LA 4 MG [id number]-NVR Take 1 tablet by mouth daily DETROL LA 4 MG [id number]-BPF TOLTERODINE TARTRATE Inactive ZYPREXA 7.5 MG TABS 1 at HS ZYPREXA 7.5 MG TABS 018033 OLANZAPINE Inactive THIOTHIXENE 5 MG CAPS by mouth twice a day THIOTHIXENE 5 MG CAPS 016157 THIOTHIXENE Inactive UROXATRAL 10 MG [id number]-QAU Take 1 tablet by mouth daily UROXATRAL 10 MG ZZ10H-PDC ALFUZOSIN HCL Inactive CEFDINIR 300 MG CAPS by mouth twice a day CEFDINIR 300 MG CAPS 136114 CEFDINIR Inactive AZITHROMYCIN 500 MG SOLR 1 po q day AZITHROMYCIN 500 MG SOLR 979696 AZITHROMYCIN Inactive AMOXICILLIN 500 MG CAPS 2 po BID x 10 days AMOXICILLIN 500 MG CAPS 468024 AMOXICILLIN Inactive Immunizations Vaccine Administration Date Value [...] Fluvirin, Fluarix, Agriflu(>=18 yo)) Fluzone (>3 yrs.) [XSX262] Influenza, seasonal, injectable pneumococcal immunization administered Pneumovax 23 [CVX33] pneumococcal polysaccharide vaccine, 23 valent Vital Signs Date Name Value Unit Range Description blood pressure, diastolic - 8462-4 70 mm[Hg] BP gracia blood pressure, systolic - 8480-6 140 mm[Hg] [...] HGBA1C - Chemistry sodium, serum 130 mmol/L 733-813 2516/06/09 potassium, serum 4.0 mmol/L 3.5-5.2 chloride, serum 92 mmol/L 98-107 carbon dioxide, venous blood 22.1 mmol/L 21.0-32.0 blood glucose 60 mg/dL 65-110 calcium, serum 9.5 mg/dL 8.5-10.1 urea nitrogen, blood 14 mg/dL 7-18 creatinine, serum 1.30 mg/dL 0.60-1.30 hemoglobin A1C, blood, as % of total hemoglobin 6.0 % 4.3-6.0 sodium, serum 131 mmol/L 488-882 0707/12/30 potassium, serum 5.0 mmol/L 3.5-5.2 chloride, serum [...] 6.0 mg/dL 2.6-7.2 sodium, serum 130 mmol/L 737-360 5163/05/01 potassium, serum 5.2 mmol/L 3.5-5.2 chloride, serum [...] 0.40 mg/dL 0.00-1.00 cholesterol, serum 151 mg/dL 578-913 6403/05/01 triglyceride, serum, fasting 356 mg/dL 30-200 HDL [...] Panel - Chemistry sodium, serum 127 mmol/L 520-209 7913/10/27 potassium, serum 4.1 mmol/L 3.5-5.2 chloride, serum [...] HGBA1C - Chemistry sodium, serum 126 mmol/L 665-048 1681/02/26 potassium, serum 4.8 mmol/L 3.5-5.2 chloride, serum [...] mg/dL Encounters Code Encounter Date Provider Facility CPT-37129 Level 3 Est. Patient 10:01:51 [facility] CPT-34790 Level 3 Est. Patient 21:54:06 CDT Vanessa Hickey MD [facility] CPT-97128 Level 3 Est. Patient 08:54:46 CDT Alina Castaneda MD PhD [facility] CPT-86887 Level 3 Est. Patient 09:32:11 CDT Marvel Charles [facility] CPT-74598 Level 3 Est. Patient 12:02:49 CDT Alina Castaneda MD [facility]-39048 Level 3 Est. Patient 19:17:33 CDT Alina Castaneda MD [facility]-79260 Level 3 Est. Patient 13:19:10 [facility]-27795 Level 3 Est. Patient 08:20:05 CDT Alina Castaneda MD [facility]-22647 Level 3 Est. Patient 15:17:18 CDT Alina Castaneda MD [facility]-40822 Level 3 Est. Patient 14:25:36 FIELD STAFF [facility] Est[facility] Patient 10:09:15 [facility]FF [facility] Est[facility] Patient 21:28:43 CDT Alina Castaneda MD [facility]-32635 Level 3 Est. Patient 15:20:11 CDT [facility] Level 4 Est. Patient 19:08:12 CDT Alina Castaneda MD [facility]-73575 Level 3 Est. Patient 15:06:39 [facility]-93510 Level 4 Est. Patient 17:48:15 CDT Alina Castaneda MD [facility]-64749 Level 3 Est. Patient 14:53:49 CDT Alina Castaneda MD [facility]-01111 Level 3 Est. Patient 09:35:16 CDT Alina Castaneda MD [facility]-07100 Level 3 Est. Patient 12:23:22 CDT Alina Castaneda MD [facility]-01297 Level 3 Est. Patient 16:19:15 CDT Alina Castaneda MD [facility]-84941 Level 3 Est. Patient 21:39:56 FIELD STAFF Alina Castaneda MD [facility]-67904 Level 4 Est. Patient 14:12:56 FIELD STAFF Alina Castaneda MD [facility]-78811 Level 2 Est. Patient 15:34:57 FIELD STAFF Alina Castaneda MD [facility]-75054 Level 3 Est. Patient 12:17:04 FIELD STAFF Alina Castaneda MD [facility]-58764 Level 3 Est. Patient 09:18:18 FIELD STAFF Marvel Charles [facility]-02530 Level 2 Est. Patient 21:50:24 CDT Alina Castaneda MD [facility]-57591 Level 3 Est. Patient 09:17:28 CDT Marvel Charles [facility]-55455 Level 4 Est. Patient 18:54:02 CDT Alina Castaneda MD [facility]-59321 Level 3 Est. Patient 10:47:10 CDT Alina Castaneda MD [facility]-34262 Level 3 Est. Patient 09:22:20 CDT Marvel Charles [facility]-32158 Level 3 Est. Patient 16:39:43 CDT Marvel Charles [facility]-91546 Level 3 Est. Patient 16:05:16 CDT Alina Castaneda MD [facility] CPT-88556 Level 3 Est. Patient 00:29:15 CDT Alina Castaneda MD [facility] CPT-38087 Level 3 Est. Patient 10:49:22 FIELD STAFF Marvel Charles [facility] CPT-24918 Level 3 Est. Patient 21:30:19 FIELD STAFF Alina Castaneda MD [facility] CPT-78958 Level 4 Est. Patient 17:04:11 FIELD STAFF [facility] CPT-75019 Level 3 Est. Patient 15:34:11 FIELD STAFF [facility] CPT-51381 Level 2 Est. Patient 12:51:58 FIELD STAFF Alina Castaneda MD [facility] CPT-99519 Level 3 Est. Patient 13:20:01 FIELD STAFF Alina Castaneda MD [facility] CPT-30265 Level 3 Est. Patient 09:23:35 CDT Alina Castaneda MD [facility] Procedures Code Procedure Name Date Entry Date Standard Description CPT-98408 Bladder Scan 21:54:06 CDT CPT-G0008 Administration of Influenza Virus Vaccine 13:05:26 CDT CPT-81077 Fluzone Quadrivalent Intramuscular Suspension 0.5 ML 13: 05:26 CDT CPT-21953 Administration single or combination vaccine inc oral 11 :49:51 CDT CPT-58314 Pneumovax 11:49:51 CDT CPT-90682 Ribs unilateral 2V 12:37:22 FIELD STAFF CPT-18810 Chest 2V Frontal and Lat 17:15:26 CDT CPT-83120 Abx/Therapy Injection 18:54:02 CDT CPT-J0696 Rocephin 1000 mg (Ceftriaxone) 16:00:32 CDT CPT-89803 Chest 2V Frontal and Lat 15:26:45 CDT CPT-35073 Chest 2V Frontal and Lat 10:23:27 CDT CPT-99361 Venipuncture Draw Fee 10:11:00 CDT CPT-77818 Administration single or combination vaccine inc oral 11 :56:38 CDT CPT-77810 Influenza split virus > age 3 11:56:38 CDT CPT-61365 Venipuncture Draw Fee 08:49:54 FIELD STAFF CPT-29939 EKG Trac and Interp 17:54:19 FIELD STAFF
--- OUTSIDE RECORDS SUMMARY | 2018-07-02 20:40 | XMS REPORT | Clinical Summary ---
Author Author Admin, TERELL Organization [facility] Address Unknown Phone Unavailable Allergies, Adverse [...] by mouth nightly, for pain MORPHINE SULFATE 63069308172 Active Alina Castaneda MD PhD Active LATUDA 80 MG TABS 1 tab by mouth every evening LURASIDONE HCL 07981210999 Active Alina Castaneda MD PhD Active UROXATRAL 10 MG [id number]-JCC Take 1 tablet by mouth daily ALFUZOSIN HCL 60532189225 No Longer Active Alian Castaneda MD PhD Active THIOTHIXENE 5 MG CAPS by mouth twice a day THIOTHIXENE 47726666690 No Longer Active Alina Castaneda MD PhD Active ZYPREXA 7.5 MG TABS 1 at HS OLANZAPINE 86298742464 No Longer Active Alina Castaneda MD PhD Active HUMALOG 100 UNIT/ML SOLN Take 20 units with breakfast, 10u with lunch and suppetr. INSULIN LISPRO (HUMAN) 15706811202 Active Maliheh Ziglari FOOD MIXER Active LEVEMIR 100 UNIT/ML SOLN Take 70 u at 7-8pm INSULIN DETEMIR 77470420815 Active Maliheh Ziglari FOOD MIXER Active BD INSULIN SYRINGE 28G X 1/2" 1 ML MISC 1 four times per day INSULIN SYRINGE-NEEDLE U-100 60907779317 Active Maliheh Ziglari FOOD MIXER Active CYCLOBENZAPRINE HCL 10 MG TABS 1 tablet by mouth three times daily, scheduled CYCLOBENZAPRINE HCL 92943365095 Active Alina Castaneda MD PhD Active TOLTERODINE TARTRATE 2 MG TABS 1 pill twice daily, for bladder TOLTERODINE TARTRATE 39168631779 Active Alina Castaneda MD PhD Active DETROL LA 4 MG [id number] Take 1 tablet by mouth daily TOLTERODINE TARTRATE 31666704469 No Longer Active Alina Castaneda MD PhD Active HYDROCODONE-ACETAMINOPHEN 5-325 MG TABS 2 tabs by mouth three times daily as needed for pain HYDROCODONE-ACETAMINOPHEN 54162343940 Active Alina Castaneda MD PhD Active TERESE CONTOUR TEST STRP monitor blood sugars 3x/day GLUCOSE BLOOD 53926676839 No Longer Active Alina Castaneda MD PhD Active EQL TRUETEST TEST STRP Test blood sugar TID GLUCOSE BLOOD 64009193315 No Longer Active Alina Castaneda MD PhD Active FLUTICASONE PROPIONATE 50 MCG/ACT SUSP 2 sprays each nostril qDay x 30 days FLUTICASONE PROPIONATE 99946175821 No Longer Active Alina Castandea MD PhD Active IBUPROFEN 200 MG TABS 1 Q 6 hr. PRN IBUPROFEN 77847743658 No Longer Active Alina Castaneda MD PhD Active NIACIN ER 500 MG CR-TABS 4 qHS (for triglycerides) NIACIN 29644402510 No Longer Active Alina Castaneda MD PhD Active TRUETEST TEST STRP check sugars 4x/day GLUCOSE BLOOD 46471877978 Active Marvel Mackenzieglari FOOD MIXER Active ALFUZOSIN HCL ER 10 MG [id number] 1 tablet daily ALFUZOSIN HCL 64810284142 Active Vanessa Hickey MD Active CLONAZEPAM 1 MG TABS 1 pill by mouth three times daily CLONAZEPAM 23329112311 Active Alina Castaneda MD PhD Active LOVAZA 1 GM CAPS 4 daily (for triglycerides) [id number] ETHYL ESTERS 16456158476 Active Alina Castaneda MD PhD Active SAPHRIS 5 MG SUBL by mouth twice a day ASENAPINE MALEATE 13565617677 No Longer Active Marvel MENDOZAP Active ACETAMINOPHEN 500 MG TABS 2 Q 6 hr. PRN ACETAMINOPHEN 33541311875 No Longer Active Marvel Thurstonari FOOD MIXER Active VERAPAMIL HCL ER 120 MG [id number] 1 pill by mouth twice a day, for headache prevention/control VERAPAMIL HCL 83816469321 Active Alina Castaneda MD PhD Active ORPHENADRINE CITRATE ER 100 MG UV73S-CRJ 1 every 12 hr. as needed ORPHENADRINE CITRATE 99730979792 No Longer Active Alina Castaneda MD PhD Active NIACIN CR 500 MG CR-TABS 2 qHS NIACIN 22529277459 No Longer Active Alina Castaneda MD PhD Active AMOXICILLIN 500 MG CAPS 2 po BID x 10 days AMOXICILLIN 08016731503 No Longer Active Alina Castaneda MD PhD Active HYDROCODONE-ACETAMINOPHEN 7.5-325 MG TABS 1 four times a day as needed for pain HYDROCODONE-ACETAMINOPHEN 07168042235 No Longer Active Alina Castaneda MD PhD Active METFORMIN HCL ER 500 MG HT56B-RNK Take three tablets by mouth everyday METFORMIN HCL 43645595739 Active Alina Castaneda MD PhD Active DOXEPIN HCL 10 MG CAPS Take 1 tablet by mouth daily DOXEPIN HCL 77605683028 No Longer Active Salina Han [facility] Active NAVANE 10 MG CAPS 1/2 tablet twice a day THIOTHIXENE No Longer Active Salina Han [facility] Active CYCLOBENZAPRINE HCL 10 MG TABS 1/2 tablet by mouth every 8 hours as needed for muscle spasms CYCLOBENZAPRINE HCL 50670514845 No Longer Active Alina Castaenda MD PhD Active BACTROBAN 2 % CREAM apply to ear and nose twice daily MUPIROCIN CALCIUM 15770267556 No Longer Active Alina Castaneda MD PhD Active HYDROCODONE-ACETAMINOPHEN 5-325 MG TABS take one tablet by mouth every four hours as needed for pain HYDROCODONE-ACETAMINOPHEN 06998536389 No Longer Active Alina Castaneda MD PhD Active ZOLPIDEM TARTRATE 10 MG TABS take at bedtime ZOLPIDEM TARTRATE 61243625337 Active Alina Castaneda MD PhD Active ZYPREXA 5 MG TABS take one tablet by mouth every evening OLANZAPINE 64300752363 No Longer Active Alina Castaneda MD PhD Active ALBUTEROL SULFATE 0.083 % NEBU SOLN one vial per nebulizer TID and PRN cough/ soa ALBUTEROL SULFATE 90580853731 No Longer Active Alina Castaneda MD PhD Active GUAIFENESIN 600 MG [id number]-NYX 1 tablet by mouth twice daily if needed for cough GUAIFENESIN 31624602152 No Longer Active Marvel MARROQUIN Active AZITHROMYCIN 500 MG SOLR 1 po q day AZITHROMYCIN 01382512706 No Longer Active Alina Castaneda MD PhD Active METOPROLOL SUCCINATE 100 MG VP49Z-BKM 1 by mouth daily for blood pressure METOPROLOL SUCCINATE 71868494018 Active Alina Castaneda MD PhD Active PROMETHAZINE-CODEINE 6.25-10 MG/5ML SYRP 1 tsp po q 6 hours prn cough PROMETHAZINE-CODEINE 66298646085 No Longer Active Alina Castaneda MD PhD Active CEFDINIR 300 MG CAPS by mouth twice a day CEFDINIR 34153947788 No Longer Active Alina Castaneda MD PhD Active METFORMIN HCL 500 MG LP13S-QRL Take 3 tablets by mouth everyday METFORMIN HCL 94855641847 No Longer Active Alina Castaneda MD PhD Active LEVEMIR 100 UNIT/ML SOLN 90 units SQ qHS INSULIN DETEMIR 97106305574 No Longer Active Marvel MARROQUIN Active TOPROL XL 100 MG VX71B-TOV 1 @ HS METOPROLOL SUCCINATE 55390402358 No Longer Active Marvel MARROQUIN Active ALLOPURINOL 300 MG TABS Take one by mouth daily ALLOPURINOL 75099981392 Active Alina Castaneda MD PhD Active ZYPREXA 10 MG TABS Take one by mouth daily OLANZAPINE 55082696506 No Longer Active Alina Castaneda MD PhD Active NOVOLOG 100 UNIT/ML SOLN 40 units with every meal INSULIN ASPART 81939348279 No Longer Active Alina Castaneda MD PhD Active VERAPAMIL HCL CR 120 MG TAB CR 1 qPM VERAPAMIL HCL 61105579885 No Longer Active Salina Han [facility] Active ZYPREXA 15 MG TABS Take 1 tablet by mouth daily OLANZAPINE 36404550325 No Longer Active Marvel MARROQUIN Active LISINOPRIL 20 MG TABS 1 BID LISINOPRIL 79475804616 Active Alina Castaneda MD PhD Active ALBUTEROL SULFATE (2.5 MG/3ML) 0.083% NEBU 1 neb tid and prn cough ALBUTEROL SULFATE 37371633455 No Longer Active Alina Castaneda MD PhD Active FLUVOXAMINE MALEATE 100 MG TABS Take one (1) tablet by mouth am, 05/25 at noon, 1 pm FLUVOXAMINE MALEATE 22303983843 Active Alina Castaneda MD PhD Active TRAVATAN Z 0.004 % SOLN 1 gtt each eye daily TRAVOPROST 16612994304 Active CRYSTAL Suarez Active LANTUS 100 UNIT/ML SOLN 60 units sq q hs INSULIN GLARGINE 15244230629 No Longer Active CRYSTAL Suarez Active ALBUTEROL SULFATE (2.5 MG/3ML) 0.083% NEBU 1 neb tid and prn cough ALBUTEROL SULFATE (2.5 MG/3ML) 0.083% NEBU 111644 ALBUTEROL SULFATE Inactive ZYPREXA 15 MG TABS Take 1 tablet by mouth daily ZYPREXA 15 MG TABS 517563 OLANZAPINE Inactive VERAPAMIL HCL CR 120 MG TAB CR 1 qPM VERAPAMIL HCL CR 120 MG TAB CR VERAPAMIL HCL Inactive ZYPREXA 10 MG TABS Take one by mouth daily ZYPREXA 10 MG TABS 308877 OLANZAPINE Inactive TOPROL XL 100 MG [id number] 1 @ HS TOPROL XL 100 MG FY76B-LUA METOPROLOL SUCCINATE Inactive LEVEMIR 100 UNIT/ML SOLN 90 units SQ qHS LEVEMIR 100 UNIT/ML SOLN INSULIN DETEMIR Inactive PROMETHAZINE-CODEINE 6.25-10 MG/5ML SYRP 1 tsp po q 6 hours prn cough PROMETHAZINE-CODEINE 6.25-10 MG/5ML SYRP 619520 PROMETHAZINE- CODEINE Inactive GUAIFENESIN 600 MG TL39L-GQJ 1 tablet by mouth twice daily if needed for cough GUAIFENESIN 600 MG OQ42L-WGI GUAIFENESIN Inactive ALBUTEROL SULFATE 0.083 % NEBU SOLN one vial per nebulizer TID and PRN cough/ soa ALBUTEROL SULFATE 0.083 % [facility] 978090 ALBUTEROL SULFATE Inactive ZYPREXA 5 MG TABS take one tablet by mouth every evening ZYPREXA 5 MG TABS 518288 OLANZAPINE Inactive HYDROCODONE-ACETAMINOPHEN 5-325 MG TABS take one tablet by mouth every four hours as needed for pain HYDROCODONE-ACETAMINOPHEN 5-325 MG TABS 046235 HYDROCODONE-ACETAMINOPHEN Inactive BACTROBAN 2 % CREAM apply to ear and nose twice daily BACTROBAN 2 % CREAM 572689 MUPIROCIN CALCIUM Inactive CYCLOBENZAPRINE HCL 10 MG TABS 1/2 tablet by mouth every 8 hours as needed for muscle spasms CYCLOBENZAPRINE HCL 10 MG TABS 836864 CYCLOBENZAPRINE HCL Inactive NAVANE 10 MG CAPS 1/2 tablet twice a day NAVANE 10 MG CAPS THIOTHIXENE Inactive DOXEPIN HCL 10 MG CAPS Take 1 tablet by mouth daily DOXEPIN HCL 10 MG CAPS 4318961 DOXEPIN HCL Inactive HYDROCODONE-ACETAMINOPHEN 7.5-325 MG TABS 1 four times a day as needed for pain HYDROCODONE-ACETAMINOPHEN 7.5-325 MG TABS 148660 HYDROCODONE-ACETAMINOPHEN Inactive NIACIN CR 500 MG CR-TABS 2 qHS NIACIN CR 500 MG CR- TABS NIACIN Inactive ORPHENADRINE CITRATE ER 100 MG [id number]-TLP 1 every 12 hr. as needed ORPHENADRINE CITRATE ER 100 MG II94Y-LGH ORPHENADRINE CITRATE Inactive ACETAMINOPHEN 500 MG TABS 2 Q 6 hr. PRN ACETAMINOPHEN 500 MG TABS 358928 ACETAMINOPHEN Inactive SAPHRIS 5 MG SUBL by mouth twice a day SAPHRIS 5 MG SUBL ASENAPINE MALEATE Inactive NIACIN ER 500 MG CR-TABS 4 qHS (for triglycerides) NIACIN ER 500 MG CR-TABS NIACIN Inactive IBUPROFEN 200 MG TABS 1 Q 6 hr. PRN IBUPROFEN 200 MG TABS 550860 IBUPROFEN Inactive FLUTICASONE PROPIONATE 50 MCG/ACT SUSP 2 sprays each nostril qDay x 30 days FLUTICASONE PROPIONATE 50 MCG/ACT SUSP 574079 FLUTICASONE PROPIONATE Inactive EQL TRUETEST TEST STRP Test blood sugar TID EQL TRUETEST TEST STRP GLUCOSE BLOOD Inactive TERESE CONTOUR TEST STRP monitor blood sugars 3x/day TERESE CONTOUR TEST STRP GLUCOSE BLOOD Inactive DETROL LA 4 MG ZQ58W-DGH Take 1 tablet by mouth daily DETROL LA 4 MG RV71M-JBH TOLTERODINE TARTRATE Inactive ZYPREXA 7.5 MG TABS 1 at HS ZYPREXA 7.5 MG TABS 932714 OLANZAPINE Inactive THIOTHIXENE 5 MG CAPS by mouth twice a day THIOTHIXENE 5 MG CAPS 635309 THIOTHIXENE Inactive UROXATRAL 10 MG VH06P-QKE Take 1 tablet by mouth daily UROXATRAL 10 MG FT41T-GYK ALFUZOSIN HCL Inactive CEFDINIR 300 MG CAPS by mouth twice a day CEFDINIR 300 MG CAPS 937947 CEFDINIR Inactive AZITHROMYCIN 500 MG SOLR 1 po q day AZITHROMYCIN 500 MG SOLR 816754 AZITHROMYCIN Inactive AMOXICILLIN 500 MG CAPS 2 po BID x 10 days AMOXICILLIN 500 MG CAPS 477043 AMOXICILLIN Inactive Immunizations Vaccine Administration Date Value [...] Fluvirin, Fluarix, Agriflu(>=18 yo)) Fluzone (>3 yrs.) [[id number]] Influenza, seasonal, injectable pneumococcal immunization administered Pneumovax [...] rate weight E&M 239 [lb_av] Weight Measured Diagnostic Results Date Name Value Unit Range Description Lab Report: Basic Metabolic Panel, HGBA1C - Chemistry sodium, serum 130 mmol/L 502-640 1044/06/09 potassium, serum 4.0 mmol/L 3.5-5.2 chloride, serum [...] 6.0 mg/dL 2.6-7.2 sodium, serum 130 mmol/L 452-406 4320/05/01 potassium, serum 5.2 mmol/L 3.5-5.2 chloride, serum [...] 0.40 mg/dL 0.00-1.00 cholesterol, serum 151 mg/dL 110-908 4467/05/01 triglyceride, serum, fasting 356 mg/dL 30-200 HDL [...] HGBA1C - Chemistry sodium, serum 126 mmol/L 190-517 9297/02/26 potassium, serum 4.8 mmol/L 3.5-5.2 chloride, serum [...] mg/dL Encounters Code Encounter Date Provider Facility CPT-70209 Level 3 Est. Patient 09:32:11 CDT Marvel MARROQUIN [facility] CPT-42023 Level 3 Est. Patient 12:02:49 CDT Alina Castaneda MD PhD [facility] CPT-80237 Level 3 Est. Patient 19:17:33 CDT Alina Castaneda MD PhD [facility] CPT-01261 Level 3 Est. Patient 13:19:10 CDT Marvel Charles [facility]-97277 Level 3 Est. Patient 08:20:05 CDT Alina Castaneda MD [facility]58275 Level 3 Est. Patient 15:17:18 CDT Alina Castaneda MD [facility]85996 Level 3 Est. Patient 14:25:36 [employer] Marvel Charles [facility]-38632 Level 3 Est. Patient 10:09:15 [employer]OMOBILE SERVICE ADVISOR Marvel Charles [facility]-99386 Level 3 Est. Patient 21:28:43 CDT Alina Castaneda MD [facility]55884 Level 3 Est. [facility] Patient 19:08:12 CDT Alina Castaneda MD [facility]-93374 Level 3 Est. Patient 15:06:39 CDT Marvel Charles [facility]-55052 Level 4 Est. Patient 17:48:15 CDT Alina Castaneda MD [facility]-40495 Level 3 Est. Patient 14:53:49 CDT Alina Castaneda MD [facility]-41652 Level 3 Est. Patient 09:35:16 CDT Alina Castaneda MD [facility]-06363 Level 3 Est. Patient 12:23:22 CDT Alina Castaneda MD [facility]-70035 Level 3 Est. Patient 16:19:15 CDT Alina Castaneda MD [facility]88260 Level 3 Est. Patient 21:39:56 [employer] ADVISOR Alina Castaneda MD [facility]-80733 Level 4 Est. Patient 14:12:56 [employer]OMOBI[employer] SERVICE ADVISOR Alina Castaneda MD [facility]-55288 Level 2 Est. Patient 15:34:57 AUTOMOBI[employer] SERVICE ADVISOR Alina Castaneda MD [facility]05596 Level 3 Est. Patient 12:17:04 AUTOMOBILE SERVICE ADVISOR Alina Castaneda MD [facility]63174 Level 3 Est. Patient 09:18:18 AUTOMOBILE SERVICE ADVISOR Marvel Charles [facility]-95578 Level 2 Est. Patient 21:50:24 CDT Alina Castaneda MD [facility]24105 Level 3 Est. Patient 09:17:28 CDT Marvel Charles [facility]-57917 Level 4 Est. Patient 18:54:02 CDT Alina Castaneda MD [facility]-40082 Level 3 Est. Patient 10:47:10 CDT Alina Castaneda MD [facility]-08319 Level 3 Est. Patient 09:22:20 CDT Marvel Charles [facility]-15870 Level 3 Est. Patient 16:39:43 CDT Marvel Charles [facility]-68362 Level 3 Est. Patient 16:05:16 CDT Alina Castaneda MD [facility]-19264 Level 3 Est. Patient 00:29:15 CDT Alina Castaneda MD [facility]64806 Level 3 Est. Patient 10:49:22 AUTOMOBILE SERVICE ADVISOR Marvel Charles [facility]-64184 Level 3 Est. Patient 21:30:19 AUTOMOBI[employer] SERVICE ADVISOR Alina Castaneda MD PhD [facility] CPT-94947 Level 4 Est. Patient 17:04:11 AUTOMOBILE SERVICE ADVISOR Marvel Charles [facility] CPT-44977 Level 3 Est. Patient 15:34:11 AUTOMOBILE SERVICE ADVISOR Marvel Charles [facility] CPT-82514 Level 2 Est. Patient 12:51:58 AUTOMOBILE SERVICE ADVISOR Alina Castaneda MD [facility] CPT-09260 Level 3 Est. Patient 13:20:01 AUTOMOBILE SERVICE ADVISOR Alina Castaneda MD PhD [facility] CPT-05481 Level 3 Est. Patient 09:23:35 CDT Alina Castaneda MD [facility] Procedures Code Procedure Name Date Entry Date Standard Description CPT-G0008 Administration of Influenza Virus Vaccine 13:05:26 CDT CPT-22876 Fluzone Quadrivalent Intramuscular Suspension 0.5 ML 13: 05:26 CDT CPT-08373 Administration single or combination vaccine inc oral 11 :49:51 CDT CPT-61544 Pneumovax 11:49:51 CDT CPT-61307 Ribs unilateral 2V 12:37:22 [employer] CPT-27034 Chest 2V Frontal and Lat 17:15:26 CDT CPT-91823 Abx/Therapy Injection 18:54:02 CDT CPT-J0696 Rocephin 1000 mg (Ceftriaxone) 16:00:32 CDT CPT-19709 Chest 2V Frontal and Lat 15:26:45 CDT CPT-63611 Chest 2V Frontal and Lat 10:23:27 CDT CPT-12666 Venipuncture Draw Fee 10:11:00 CDT CPT-74494 Administration single or combination vaccine inc oral 11 :56:38 CDT CPT-47692 Influenza split virus > age 3 11:56:38 CDT CPT-11966 Venipuncture Draw Fee 08:49:54 [employer] ADVISOR CPT-81533 EKG Trac and Interp 17:54:19 [employer]OMOBILE SERVICE ADVISOR
--- OUTSIDE RECORDS SUMMARY | 2018-07-02 20:41 | XMS REPORT | Clinical Summary ---
Author Author Admin, TERELL Organization [facility] Address Unknown Phone Unavailable Allergies, Adverse [...] by mouth nightly, for pain MORPHINE SULFATE 46754736889 Active Alina Castaneda MD PhD Active LATUDA 80 MG TABS 1 tab by mouth every evening LURASIDONE HCL 64508208189 Active Alina Castaneda MD PhD Active UROXATRAL 10 MG [id number] Take 1 tablet by mouth daily ALFUZOSIN HCL 06462392429 No Longer Active Alina Castaneda MD PhD Active THIOTHIXENE 5 MG CAPS by mouth twice a day THIOTHIXENE 37032328276 No Longer Active Alina Castaneda MD PhD Active ZYPREXA 7.5 MG TABS 1 at HS OLANZAPINE 28064012487 No Longer Active Alina Castaneda MD PhD Active HUMALOG 100 UNIT/ML SOLN Take 20 units with breakfast, 10u with lunch and suppetr. INSULIN LISPRO (HUMAN) 74926778284 Active Maliheh Ziglari [employer] Active LEVEMIR 100 UNIT/ML SOLN Take 70 u at 7-8pm INSULIN DETEMIR 13644514898 Active Maliheh Ziglari [employer]ARD [employer]ER Active BD INSULIN SYRINGE 28G X 1/2" 1 ML MISC 1 four times per day INSULIN SYRINGE-NEEDLE U-100 61148319103 Active Maliheh Ziglari [employer]ER Active CYCLOBENZAPRINE HCL 10 MG TABS 1 tablet by mouth three times daily, scheduled CYCLOBENZAPRINE HCL 15415822621 Active Alina Castaneda MD PhD Active TOLTERODINE TARTRATE 2 MG TABS 1 pill twice daily, for bladder TOLTERODINE TARTRATE 00231481545 Active Alina Castaneda MD PhD Active DETROL LA 4 MG [id number] Take 1 tablet by mouth daily TOLTERODINE TARTRATE 39501044836 No Longer Active Alina Castaneda MD PhD Active HYDROCODONE-ACETAMINOPHEN 5-325 MG TABS 2 tabs by mouth three times daily as needed for pain HYDROCODONE-ACETAMINOPHEN 25022289727 Active Alina Castaneda MD PhD Active TERESE CONTOUR TEST STRP monitor blood sugars 3x/day GLUCOSE BLOOD 66486996099 No Longer Active Alina Castaneda MD PhD Active EQL TRUETEST TEST STRP Test blood sugar TID GLUCOSE BLOOD 23073467621 No Longer Active Alina Castaneda MD PhD Active FLUTICASONE PROPIONATE 50 MCG/ACT SUSP 2 sprays each nostril qDay x 30 days FLUTICASONE PROPIONATE 76187135745 No Longer Active Alina Castaneda MD PhD Active IBUPROFEN 200 MG TABS 1 Q 6 hr. PRN IBUPROFEN 59913027053 No Longer Active Alina Castaneda MD PhD Active NIACIN ER 500 MG CR-TABS 4 qHS (for triglycerides) NIACIN 10838726256 No Longer Active Alina Castaneda MD PhD Active TRUETEST TEST STRP check sugars 4x/day GLUCOSE BLOOD 41273928240 Active Alina Castaneda MD PhD Active ALFUZOSIN HCL ER 10 MG [id number] 1 tablet daily ALFUZOSIN HCL 96306746693 Active Vanessa Hickey MD Active CLONAZEPAM 1 MG TABS 1 pill by mouth three times daily CLONAZEPAM 85413468827 Active Alina Castaneda MD PhD Active LOVAZA 1 GM CAPS 4 daily (for triglycerides) [id number] ETHYL ESTERS 03846798986 Active Alina Castaneda MD PhD Active SAPHRIS 5 MG SUBL by mouth twice a day ASENAPINE MALEATE 91943684354 No Longer Active Maljohn Mackenzieglari [employer]ARD [employer]ER Active ACETAMINOPHEN 500 MG TABS 2 Q 6 hr. PRN ACETAMINOPHEN 83739623467 No Longer Active Maliheh Ziglari [employer] Active VERAPAMIL HCL ER 120 MG [id number] 1 pill by mouth twice a day, for headache prevention/control VERAPAMIL HCL 38456936519 Active Alina Castaneda MD PhD Active ORPHENADRINE CITRATE ER 100 MG [id number] 1 every 12 hr. as needed ORPHENADRINE CITRATE 36073860073 No Longer Active Alina Castaneda MD PhD Active NIACIN CR 500 MG CR-TABS 2 qHS NIACIN 61286088316 No Longer Active Alina Castaneda MD PhD Active AMOXICILLIN 500 MG CAPS 2 po BID x 10 days AMOXICILLIN 77153360318 No Longer Active Alina Castaneda MD PhD Active HYDROCODONE-ACETAMINOPHEN 7.5-325 MG TABS 1 four times a day as needed for pain HYDROCODONE-ACETAMINOPHEN 87195170389 No Longer Active Alina Castaneda MD PhD Active METFORMIN HCL ER 500 MG [id number] Take three tablets by mouth everyday METFORMIN HCL 85103454642 Active Alina Castaneda MD PhD Active DOXEPIN HCL 10 MG CAPS Take 1 tablet by mouth daily DOXEPIN HCL 38283938087 No Longer Active Salina Han A Active NAVANE 10 MG CAPS 1/2 tablet twice a day THIOTHIXENE No Longer Active Salina Han [facility] Active CYCLOBENZAPRINE HCL 10 MG TABS 1/2 tablet by mouth every 8 hours as needed for muscle spasms CYCLOBENZAPRINE HCL 56760145232 No Longer Active Alina Castaneda MD PhD Active BACTROBAN 2 % CREAM apply to ear and nose twice daily MUPIROCIN CALCIUM 05634566179 No Longer Active Alina Castaneda MD PhD Active HYDROCODONE-ACETAMINOPHEN 5-325 MG TABS take one tablet by mouth every four hours as needed for pain HYDROCODONE-ACETAMINOPHEN 50044895376 No Longer Active Alina Castaneda MD PhD Active ZOLPIDEM TARTRATE 10 MG TABS take at bedtime ZOLPIDEM TARTRATE 38458028778 Active Alina Castaneda MD PhD Active ZYPREXA 5 MG TABS take one tablet by mouth every evening OLANZAPINE 43680503573 No Longer Active Alina Castaneda MD PhD Active ALBUTEROL SULFATE 0.083 % NEBU SOLN one vial per nebulizer TID and PRN cough/ soa ALBUTEROL SULFATE 18957731189 No Longer Active Alina Castaneda MD PhD Active GUAIFENESIN 600 MG RF00R-RZX 1 tablet by mouth twice daily if needed for cough GUAIFENESIN 47750308130 No Longer Active Marvel MARROQUIN Active AZITHROMYCIN 500 MG SOLR 1 po q day AZITHROMYCIN 50053476598 No Longer Active Alina Castaneda MD PhD Active METOPROLOL SUCCINATE 100 MG [id number]-YWQ 1 by mouth daily for blood pressure METOPROLOL SUCCINATE 08067085460 Active Alina Castaneda MD PhD Active PROMETHAZINE-CODEINE 6.25-10 MG/5ML SYRP 1 tsp po q 6 hours prn cough PROMETHAZINE-CODEINE 58570499561 No Longer Active Alina Castaneda MD PhD Active CEFDINIR 300 MG CAPS by mouth twice a day CEFDINIR 45447685848 No Longer Active Alina Castaneda MD PhD Active METFORMIN HCL 500 MG MF24C-GRM Take 3 tablets by mouth everyday METFORMIN HCL 46517865055 No Longer Active Alina Castaneda MD PhD Active LEVEMIR 100 UNIT/ML SOLN 90 units SQ qHS INSULIN DETEMIR 91650321730 No Longer Active Marvel MARROQUIN Active TOPROL XL 100 MG [id number] 1 @ HS METOPROLOL SUCCINATE 70175010377 No Longer Active Marvel MARROQUIN Active ALLOPURINOL 300 MG TABS Take one by mouth daily ALLOPURINOL 11171106193 Active Alina Castaneda MD PhD Active ZYPREXA 10 MG TABS Take one by mouth daily OLANZAPINE 64383003945 No Longer Active Alina Castaneda MD PhD Active NOVOLOG 100 UNIT/ML SOLN 40 units with every meal INSULIN ASPART 61247810323 No Longer Active Alina Castaneda MD PhD Active VERAPAMIL HCL CR 120 MG TAB CR 1 qPM VERAPAMIL HCL 45216057159 No Longer Active Salina Han [facility] Active ZYPREXA 15 MG TABS Take 1 tablet by mouth daily OLANZAPINE 07012272021 No Longer Active Marvel MARROQUIN Active LISINOPRIL 20 MG TABS 1 BID LISINOPRIL 46853388581 Active Alina Castaneda MD PhD Active ALBUTEROL SULFATE (2.5 MG/3ML) 0.083% NEBU 1 neb tid and prn cough ALBUTEROL SULFATE 61824148409 No Longer Active Alina Castaneda MD PhD Active FLUVOXAMINE MALEATE 100 MG TABS Take one (1) tablet by mouth am, 05/25 at noon, 1 pm FLUVOXAMINE MALEATE 25033712276 Active Alina Castaneda MD PhD Active TRAVATAN Z 0.004 % SOLN 1 gtt each eye daily TRAVOPROST 58220426576 Active CRYSTAL Suarez Active LANTUS 100 UNIT/ML SOLN 60 units sq q hs INSULIN GLARGINE 58657580898 No Longer Active CRYSTAL Suarez Active ALBUTEROL SULFATE (2.5 MG/3ML) 0.083% NEBU 1 neb tid and prn cough ALBUTEROL SULFATE (2.5 MG/3ML) 0.083% NEBU 071202 ALBUTEROL SULFATE Inactive ZYPREXA 15 MG TABS Take 1 tablet by mouth daily ZYPREXA 15 MG TABS 854711 OLANZAPINE Inactive VERAPAMIL HCL CR 120 MG TAB CR 1 qPM VERAPAMIL HCL CR 120 MG TAB CR VERAPAMIL HCL Inactive ZYPREXA 10 MG TABS Take one by mouth daily ZYPREXA 10 MG TABS 328102 OLANZAPINE Inactive TOPROL XL 100 MG [id number] 1 @ HS TOPROL XL 100 MG [id number] METOPROLOL SUCCINATE Inactive LEVEMIR 100 UNIT/ML SOLN 90 units SQ qHS LEVEMIR 100 UNIT/ML SOLN INSULIN DETEMIR Inactive PROMETHAZINE-CODEINE 6.25-10 MG/5ML SYRP 1 tsp po q 6 hours prn cough PROMETHAZINE-CODEINE 6.25-10 MG/5ML SYRP 870698 PROMETHAZINE- CODEINE Inactive GUAIFENESIN 600 MG [id number]-VGH 1 tablet by mouth twice daily if needed for cough GUAIFENESIN 600 MG [id number] GUAIFENESIN Inactive ALBUTEROL SULFATE 0.083 % NEBU SOLN one vial per nebulizer TID and PRN cough/ soa ALBUTEROL SULFATE 0.083 % [facility] 876812 ALBUTEROL SULFATE Inactive ZYPREXA 5 MG TABS take one tablet by mouth every evening ZYPREXA 5 MG TABS 791720 OLANZAPINE Inactive HYDROCODONE-ACETAMINOPHEN 5-325 MG TABS take one tablet by mouth every four hours as needed for pain HYDROCODONE-ACETAMINOPHEN 5-325 MG TABS 689691 HYDROCODONE-ACETAMINOPHEN Inactive BACTROBAN 2 % CREAM apply to ear and nose twice daily BACTROBAN 2 % CREAM 009673 MUPIROCIN CALCIUM Inactive CYCLOBENZAPRINE HCL 10 MG TABS 1/2 tablet by mouth every 8 hours as needed for muscle spasms CYCLOBENZAPRINE HCL 10 MG TABS 278234 CYCLOBENZAPRINE HCL Inactive NAVANE 10 MG CAPS 1/2 tablet twice a day NAVANE 10 MG CAPS THIOTHIXENE Inactive DOXEPIN HCL 10 MG CAPS Take 1 tablet by mouth daily DOXEPIN HCL 10 MG CAPS 2131661 DOXEPIN HCL Inactive HYDROCODONE-ACETAMINOPHEN 7.5-325 MG TABS 1 four times a day as needed for pain HYDROCODONE-ACETAMINOPHEN 7.5-325 MG TABS 477730 HYDROCODONE-ACETAMINOPHEN Inactive NIACIN CR 500 MG CR-TABS 2 qHS NIACIN CR 500 MG CR- TABS NIACIN Inactive ORPHENADRINE CITRATE ER 100 MG [id number] 1 every 12 hr. as needed ORPHENADRINE CITRATE ER 100 MG [id number] ORPHENADRINE CITRATE Inactive ACETAMINOPHEN 500 MG TABS 2 Q 6 hr. PRN ACETAMINOPHEN 500 MG TABS 634089 ACETAMINOPHEN Inactive SAPHRIS 5 MG SUBL by mouth twice a day SAPHRIS 5 MG SUBL ASENAPINE MALEATE Inactive NIACIN ER 500 MG CR-TABS 4 qHS (for triglycerides) NIACIN ER 500 MG CR-TABS NIACIN Inactive IBUPROFEN 200 MG TABS 1 Q 6 hr. PRN IBUPROFEN 200 MG TABS 171736 IBUPROFEN Inactive FLUTICASONE PROPIONATE 50 MCG/ACT SUSP 2 sprays each nostril qDay x 30 days FLUTICASONE PROPIONATE 50 MCG/ACT SUSP 143460 FLUTICASONE PROPIONATE Inactive EQL TRUETEST TEST STRP Test blood sugar TID EQL TRUETEST TEST STRP GLUCOSE BLOOD Inactive TERESE CONTOUR TEST STRP monitor blood sugars 3x/day TERESE CONTOUR TEST STRP GLUCOSE BLOOD Inactive DETROL LA 4 MG [id number]-ZAY Take 1 tablet by mouth daily DETROL LA 4 MG [id number] TOLTERODINE TARTRATE Inactive ZYPREXA 7.5 MG TABS 1 at HS ZYPREXA 7.5 MG TABS 361887 OLANZAPINE Inactive THIOTHIXENE 5 MG CAPS by mouth twice a day THIOTHIXENE 5 MG CAPS 560024 THIOTHIXENE Inactive UROXATRAL 10 MG HC90J-RET Take 1 tablet by mouth daily UROXATRAL 10 MG [id number]-NPH ALFUZOSIN HCL Inactive CEFDINIR 300 MG CAPS by mouth twice a day CEFDINIR 300 MG CAPS 757767 CEFDINIR Inactive AZITHROMYCIN 500 MG SOLR 1 po q day AZITHROMYCIN 500 MG SOLR 467372 AZITHROMYCIN Inactive AMOXICILLIN 500 MG CAPS 2 po BID x 10 days AMOXICILLIN 500 MG CAPS 173022 AMOXICILLIN Inactive Immunizations Vaccine Administration Date Value [...] Fluvirin, Fluarix, Agriflu(>=18 yo)) Fluzone (>3 yrs.) [[id number]] Influenza, seasonal, injectable pneumococcal immunization administered Pneumovax [...] HGBA1C - Chemistry sodium, serum 130 mmol/L 767-968 3321/06/09 potassium, serum 4.0 mmol/L 3.5-5.2 chloride, serum [...] 6.0 mg/dL 2.6-7.2 sodium, serum 130 mmol/L 068-770 2159/05/01 potassium, serum 5.2 mmol/L 3.5-5.2 chloride, serum [...] 0.40 mg/dL 0.00-1.00 cholesterol, serum 151 mg/dL 443-190 4181/05/01 triglyceride, serum, fasting 356 mg/dL 30-200 HDL [...] HGBA1C - Chemistry sodium, serum 126 mmol/L 390-560 2095/02/26 potassium, serum 4.8 mmol/L 3.5-5.2 chloride, serum [...] mg/dL Encounters Code Encounter Date Provider Facility CPT-06143 Level 3 Est. Patient 09:32:11 CDT Maliheh Ziglari [facility]-05013 Level 3 Est. Patient 12:02:49 CDT Alina Castaneda MD [facility]-59261 Level 3 Est. Patient 19:17:33 CDT Alina Castaneda MD [facility]-28834 Level 3 Est. Patient 13:19:10 CDT Marvel [facility]-15539 Level 3 Est. Patient 08:20:05 CDT Alina Castaneda MD [facility] [place]24073 Level 3 Est. Patient 15:17:18 CDT Alina Castaneda MD [facility] [place]17558 Level 3 Est. Patient 14:25:36 [employer] [facility]-04354 Level 3 Est. Patient 10:09:15 [employer] Marvel [facility]-62154 Level 3 Est. Patient 21:28:43 CDT Alina Castaneda MD [facility]-09739 Level 3 Est. Patient 15:20:11 CDT Marvel Thurstonestela [facility]-84575 Level 4 Est. Patient 19:08:12 CDT Alina Castaneda MD [facility]-65526 Level 3 Est. Patient 15:06:39 CDT Marvel Gurdeepajayestela [facility]-20065 Level 4 Est. Patient 17:48:15 CDT Alina Castaneda MD [facility] [place]83679 Level 3 Est. Patient 14:53:49 CDT Alina Castaneda MD [facility]-84662 Level 3 Est. Patient 09:35:16 CDT Alina Catsaneda MD [facility]-49140 Level 3 Est. Patient 12:23:22 CDT Alina Castaneda MD [facility] [place]66543 Level 3 Est. Patient 16:19:15 CDT Alina Castaneda MD [facility] [place]19360 Level 3 Est. Patient 21:39:56 [employer] Alina Castaneda MD [facility] [place]77757 Level 4 Est. Patient 14:12:56 [employer] Alina Castaneda MD [facility] [place]10221 Level 2 Est. Patient 15:34:57 [employer] Alina Castaneda MD [facility]-49114 Level 3 Est. Patient 12:17:04 [employer] Alina Castaneda MD [facility]-36896 Level 3 Est. Patient 09:18:18 [employer] Marvel [facility]-93123 Level 2 Est. Patient 21:50:24 CDT Alina Castaneda MD [facility] [place]16482 Level 3 Est. Patient 09:17:28 CDT Marvel [facility]-17088 Level 4 Est. Patient 18:54:02 CDT Alina Castaneda MD [facility]-91493 Level 3 Est. Patient 10:47:10 CDT Alina Castaneda MD [facility] [place]70643 Level 3 Est. Patient 09:22:20 CDT Marvel [facility] [place]82316 Level 3 Est. Patient 16:39:43 CDT Marvel [facility]-59992 Level 3 Est. Patient 16:05:16 CDT Alina Castaneda MD [facility] CPT-05604 Level 3 Est. Patient 00:29:15 CDT Alina Castaneda MD [facility] CPT-98192 Level 3 Est. Patient 10:49:22 [employer] [facility] CPT-75423 Level 3 Est. Patient 21:30:19 [employer] Alina Castaneda MD [facility] CPT-70879 Level 4 Est. Patient 17:04:11 [employer] [facility] CPT-04631 Level 3 Est. Patient 15:34:11 [employer] [facility] Level 2 Est. Patient 12:51:58 [employer] Alina Castaneda MD [facility] CPT-56656 Level 3 Est. Patient 13:20:01 [employer] Alina Castaneda MD [facility] CPT-78710 Level 3 Est. Patient 09:23:35 CDT Alina Castaneda MD [facility] Procedures Code Procedure Name Date Entry Date Standard Description CPT-G0008 Administration of Influenza Virus Vaccine 13:05:26 CDT CPT-05618 Fluzone Quadrivalent Intramuscular Suspension 0.5 ML 13: 05:26 CDT CPT-75220 Administration single or combination vaccine inc oral 11 :49:51 CDT CPT-41389 Pneumovax 11:49:51 CDT CPT-19746 Ribs unilateral 2V 12:37:22 [employer] CPT-79489 Chest 2V Frontal and Lat 17:15:26 CDT CPT-53679 Abx/Therapy Injection 18:54:02 CDT CPT-J0696 Rocephin 1000 mg (Ceftriaxone) 16:00:32 CDT CPT-41707 Chest 2V Frontal and Lat 15:26:45 CDT CPT-99426 Chest 2V Frontal and Lat 10:23:27 CDT CPT-90188 Venipuncture Draw Fee 10:11:00 CDT CPT-94263 Administration single or combination vaccine inc oral 11 :56:38 CDT CPT-02240 Influenza split virus > age 3 11:56:38 CDT CPT-71856 Venipuncture Draw Fee 08:49:54 [employer] CPT-10257 EKG Trac and Interp 17:54:19 [employer]
--- OUTSIDE RECORDS SUMMARY | 2018-07-02 20:42 | XMS REPORT | Clinical Summary ---
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 Active Alina Castaneda MD PhD Recurrent isolated sleep paralysis SPECIAL SCREENING FOR MALIGNANT NEOPLASM OF PROSTATE V76.44 Resolved Alina Castaneda MD PhD Screening for malignant neoplasms of prostate Hypoglycemia 251.2 Resolved Alina Castaneda MD PhD Hypoglycemia, unspecified Diabetes mellitus, type II 250.00 Active Mallashondaeh Bertrandari EQUIPMENT MAINT TECH Diabetes mellitus without mention of complication, type [...] 5 days, for cold sore outbreak ACYCLOVIR 34756566319 No Longer Active Alina Castaneda MD PhD Active PENICILLIN V POTASSIUM 500 MG TABS 1 pill by mouth three times daily PENICILLIN V POTASSIUM 89217234748 No Longer Active Alina Castaneda MD PhD Active MORPHINE SULFATE 30 MG TABS 1 pill by mouth nightly, for pain MORPHINE SULFATE 50892152631 Active Alina Castaneda MD PhD Active LATUDA 80 MG TABS 1 tab by mouth every evening LURASIDONE HCL 25613513809 Active Alina Castaneda MD PhD Active UROXATRAL 10 MG [id number] Take 1 tablet by mouth daily ALFUZOSIN HCL 64624433905 No Longer Active Alina Castaneda MD PhD Active THIOTHIXENE 5 MG CAPS by mouth twice a day THIOTHIXENE 19601588663 No Longer Active Alina Castaneda MD PhD Active ZYPREXA 7.5 MG TABS 1 at HS OLANZAPINE 00769851989 No Longer Active Alina Castaneda MD PhD Active HUMALOG 100 UNIT/ML SOLN Take 20 units with breakfast, 10u with lunch and suppetr. INSULIN LISPRO (HUMAN) 72843096239 Active Marvel MARROQUIN Active LEVEMIR 100 UNIT/ML SOLN Take 70 u at 7-8pm INSULIN DETEMIR 30952443697 Active Marvel Mackenzieglari EQUIPMENT MAINT TECH Active BD INSULIN SYRINGE 28G X 1/2" 1 ML MISC 1 four times per day INSULIN SYRINGE-NEEDLE U-100 47226863908 Active Marvel Mackenzieglari EQUIPMENT MAINT TECH Active CYCLOBENZAPRINE HCL 10 MG TABS 1 tablet by mouth three times daily, scheduled CYCLOBENZAPRINE HCL 07879828964 Active Alina Castaneda MD PhD Active TOLTERODINE TARTRATE 2 MG TABS 1 pill twice daily, for bladder TOLTERODINE TARTRATE 67844340906 Active Alina Castaneda MD PhD Active DETROL LA 4 MG [id number] Take 1 tablet by mouth daily TOLTERODINE TARTRATE 37462336174 No Longer Active Alina Castaneda MD PhD Active HYDROCODONE-ACETAMINOPHEN 5-325 MG TABS 2 tabs by mouth three times daily as needed for pain HYDROCODONE-ACETAMINOPHEN 33500383104 Active Rhett Luther DO Active TERESE CONTOUR TEST STRP monitor blood sugars 3x/day GLUCOSE BLOOD 63949976869 No Longer Active Alina Castaneda MD PhD Active EQL TRUETEST TEST STRP Test blood sugar TID GLUCOSE BLOOD 78072256559 No Longer Active Alina Castaneda MD PhD Active FLUTICASONE PROPIONATE 50 MCG/ACT SUSP 2 sprays each nostril qDay x 30 days FLUTICASONE PROPIONATE 87005814301 No Longer Active Alina Castaneda MD PhD Active IBUPROFEN 200 MG TABS 1 Q 6 hr. PRN IBUPROFEN 43245071988 No Longer Active Alina Castaneda MD PhD Active NIACIN ER 500 MG CR-TABS 4 qHS (for triglycerides) NIACIN 57243627581 No Longer Active Alina Castaneda MD PhD Active TRUETEST TEST STRP check sugars 4x/day GLUCOSE BLOOD 33757786863 Active Marvel MENDOZAP Active ALFUZOSIN HCL ER 10 MG [id number] 1 tablet daily ALFUZOSIN HCL 08315616118 Active Vanessa Hickey MD Active CLONAZEPAM 1 MG TABS 1 pill by mouth three times daily CLONAZEPAM 46892996912 Active Alina Castaneda MD PhD Active LOVAZA 1 GM CAPS 4 daily (for triglycerides) OFJLH-1-DYEL ETHYL ESTERS 23821927935 Active Alina Castaneda MD PhD Active SAPHRIS 5 MG SUBL by mouth twice a day ASENAPINE MALEATE 82926452723 No Longer Active Marvel MARROQUIN Active ACETAMINOPHEN 500 MG TABS 2 Q 6 hr. PRN ACETAMINOPHEN 23134708472 No Longer Active Marvel MARROQUIN Active VERAPAMIL HCL ER 120 MG [id number] 1 pill by mouth twice a day, for headache prevention/control VERAPAMIL HCL 01464875124 Active Alina Castaneda MD PhD Active ORPHENADRINE CITRATE ER 100 MG [id number]-KPJ 1 every 12 hr. as needed ORPHENADRINE CITRATE 75046763356 No Longer Active Alina Castaneda MD PhD Active NIACIN CR 500 MG CR-TABS 2 qHS NIACIN 29758069210 No Longer Active Alina Castaneda MD PhD Active AMOXICILLIN 500 MG CAPS 2 po BID x 10 days AMOXICILLIN 26994695266 No Longer Active Alina Castaneda MD PhD Active HYDROCODONE-ACETAMINOPHEN 7.5-325 MG TABS 1 four times a day as needed for pain HYDROCODONE-ACETAMINOPHEN 26138700468 No Longer Active Alina Castaneda MD PhD Active METFORMIN HCL ER 500 MG [id number]-MEN Take three tablets by mouth everyday METFORMIN HCL 14687138875 Active Marvel MARROQUIN Active DOXEPIN HCL 10 MG CAPS Take 1 tablet by mouth daily DOXEPIN HCL 18538566176 No Longer Active Salina ROJAS Active NAVANE 10 MG CAPS 1/2 tablet twice a day THIOTHIXENE No Longer Active Salina ROJAS Active CYCLOBENZAPRINE HCL 10 MG TABS 1/2 tablet by mouth every 8 hours as needed for muscle spasms CYCLOBENZAPRINE HCL 05862227371 No Longer Active Alina Castaneda MD PhD Active BACTROBAN 2 % CREAM apply to ear and nose twice daily MUPIROCIN CALCIUM 58955308129 No Longer Active Alina Castaneda MD PhD Active HYDROCODONE-ACETAMINOPHEN 5-325 MG TABS take one tablet by mouth every four hours as needed for pain HYDROCODONE-ACETAMINOPHEN 02127586050 No Longer Active Alina Castaneda MD PhD Active ZOLPIDEM TARTRATE 10 MG TABS take at bedtime ZOLPIDEM TARTRATE 61149634562 Active Alina Castaneda MD PhD Active ZYPREXA 5 MG TABS take one tablet by mouth every evening OLANZAPINE 30356783117 No Longer Active Alina Castaneda MD PhD Active ALBUTEROL SULFATE 0.083 % NEBU SOLN one vial per nebulizer TID and PRN cough/ soa ALBUTEROL SULFATE 47058926585 No Longer Active Alina Castaneda MD PhD Active GUAIFENESIN 600 MG [id number]-AKQ 1 tablet by mouth twice daily if needed for cough GUAIFENESIN 00106472820 No Longer Active Marvel MENDOZAP Active AZITHROMYCIN 500 MG SOLR 1 po q day AZITHROMYCIN 45376807806 No Longer Active Alina Castaneda MD PhD Active METOPROLOL SUCCINATE 100 MG PY34X-DZT 1 by mouth daily for blood pressure METOPROLOL SUCCINATE 80265553995 Active Alina Castaneda MD PhD Active PROMETHAZINE-CODEINE 6.25-10 MG/5ML SYRP 1 tsp po q 6 hours prn cough PROMETHAZINE-CODEINE 12812256658 No Longer Active Alina Castaneda MD PhD Active CEFDINIR 300 MG CAPS by mouth twice a day CEFDINIR 19271194243 No Longer Active Alina Castaneda MD PhD Active METFORMIN HCL 500 MG [id number]-DDX Take 3 tablets by mouth everyday METFORMIN HCL 60199915758 No Longer Active Alina Castaneda MD PhD Active LEVEMIR 100 UNIT/ML SOLN 90 units SQ qHS INSULIN DETEMIR 15936890866 No Longer Active Marvel MARROQUIN Active TOPROL XL 100 MG EH32P-TEM 1 @ HS METOPROLOL SUCCINATE 91350092262 No Longer Active Marvel MARROQUIN Active ALLOPURINOL 300 MG TABS Take one by mouth daily ALLOPURINOL 81485865086 Active Alina Castaneda MD PhD Active ZYPREXA 10 MG TABS Take one by mouth daily OLANZAPINE 32378933519 No Longer Active Alina Castaneda MD PhD Active NOVOLOG 100 UNIT/ML SOLN 40 units with every meal INSULIN ASPART 71537944123 No Longer Active Alina Castaneda MD PhD Active VERAPAMIL HCL CR 120 MG TAB CR 1 qPM VERAPAMIL HCL 95996912537 No Longer Active Salina ROJAS Active ZYPREXA 15 MG TABS Take 1 tablet by mouth daily OLANZAPINE 28200630569 No Longer Active Marvel MARROQUIN Active LISINOPRIL 20 MG TABS 1 BID LISINOPRIL 07041580263 Active Alina Castaneda MD PhD Active ALBUTEROL SULFATE (2.5 MG/3ML) 0.083% NEBU 1 neb tid and prn cough ALBUTEROL SULFATE 44963100929 No Longer Active Alina Castaneda MD PhD Active FLUVOXAMINE MALEATE 100 MG TABS Take one (1) tablet by mouth am, 1/2 at noon, 1 pm FLUVOXAMINE MALEATE 21049850897 Active Alina Castaneda MD PhD Active TRAVATAN Z 0.004 % SOLN 1 gtt each eye daily TRAVOPROST 48567415832 Active CRYSTAL Suarez Active LANTUS 100 UNIT/ML SOLN 60 units sq q hs INSULIN GLARGINE 36556856382 No Longer Active CRYSTAL Suarez Active ALBUTEROL SULFATE (2.5 MG/3ML) 0.083% NEBU 1 neb tid and prn cough ALBUTEROL SULFATE (2.5 MG/3ML) 0.083% NEBU 502057 ALBUTEROL SULFATE Inactive ZYPREXA 15 MG TABS Take 1 tablet by mouth daily ZYPREXA 15 MG TABS 316936 OLANZAPINE Inactive VERAPAMIL HCL CR 120 MG TAB CR 1 qPM VERAPAMIL HCL CR 120 MG TAB CR VERAPAMIL HCL Inactive ZYPREXA 10 MG TABS Take one by mouth daily ZYPREXA 10 MG TABS 655114 OLANZAPINE Inactive TOPROL XL 100 MG [id number] 1 @ HS TOPROL XL 100 MG AH35M-VWJ METOPROLOL SUCCINATE Inactive LEVEMIR 100 UNIT/ML SOLN 90 units SQ qHS LEVEMIR 100 UNIT/ML SOLN INSULIN DETEMIR Inactive PROMETHAZINE-CODEINE 6.25-10 MG/5ML SYRP 1 tsp po q 6 hours prn cough PROMETHAZINE-CODEINE 6.25-10 MG/5ML SYRP 122327 PROMETHAZINE- CODEINE Inactive GUAIFENESIN 600 MG [id number] 1 tablet by mouth twice daily if needed for cough GUAIFENESIN 600 MG [id number]-BIL GUAIFENESIN Inactive ALBUTEROL SULFATE 0.083 % NEBU SOLN one vial per nebulizer TID and PRN cough/ soa ALBUTEROL SULFATE 0.083 % NEBU SOLN 783360 ALBUTEROL SULFATE Inactive ZYPREXA 5 MG TABS take one tablet by mouth every evening ZYPREXA 5 MG TABS 438277 OLANZAPINE Inactive HYDROCODONE-ACETAMINOPHEN 5-325 MG TABS take one tablet by mouth every four hours as needed for pain HYDROCODONE-ACETAMINOPHEN 5-325 MG TABS 021157 HYDROCODONE-ACETAMINOPHEN Inactive BACTROBAN 2 % CREAM apply to ear and nose twice daily BACTROBAN 2 % CREAM 739551 MUPIROCIN CALCIUM Inactive CYCLOBENZAPRINE HCL 10 MG TABS 1/2 tablet by mouth every 8 hours as needed for muscle spasms CYCLOBENZAPRINE HCL 10 MG TABS 660527 CYCLOBENZAPRINE HCL Inactive NAVANE 10 MG CAPS 1/2 tablet twice a day NAVANE 10 MG CAPS THIOTHIXENE Inactive DOXEPIN HCL 10 MG CAPS Take 1 tablet by mouth daily DOXEPIN HCL 10 MG CAPS 0147899 DOXEPIN HCL Inactive HYDROCODONE-ACETAMINOPHEN 7.5-325 MG TABS 1 four times a day as needed for pain HYDROCODONE-ACETAMINOPHEN 7.5-325 MG TABS 378738 HYDROCODONE-ACETAMINOPHEN Inactive NIACIN CR 500 MG CR-TABS 2 qHS NIACIN CR 500 MG CR- TABS NIACIN Inactive ORPHENADRINE CITRATE ER 100 MG [id number] 1 every 12 hr. as needed ORPHENADRINE CITRATE ER 100 MG [id number]-AWU ORPHENADRINE CITRATE Inactive ACETAMINOPHEN 500 MG TABS 2 Q 6 hr. PRN ACETAMINOPHEN 500 MG TABS 793056 ACETAMINOPHEN Inactive SAPHRIS 5 MG SUBL by mouth twice a day SAPHRIS 5 MG SUBL ASENAPINE MALEATE Inactive NIACIN ER 500 MG CR-TABS 4 qHS (for triglycerides) NIACIN ER 500 MG CR-TABS NIACIN Inactive IBUPROFEN 200 MG TABS 1 Q 6 hr. PRN IBUPROFEN 200 MG TABS 255487 IBUPROFEN Inactive FLUTICASONE PROPIONATE 50 MCG/ACT SUSP 2 sprays each nostril qDay x 30 days FLUTICASONE PROPIONATE 50 MCG/ACT SUSP 716146 FLUTICASONE PROPIONATE Inactive EQL TRUETEST TEST STRP Test blood sugar TID EQL TRUETEST TEST STRP GLUCOSE BLOOD Inactive TERESE CONTOUR TEST STRP monitor blood sugars 3x/day TERESE CONTOUR TEST STRP GLUCOSE BLOOD Inactive DETROL LA 4 MG BP36L-DQF Take 1 tablet by mouth daily DETROL LA 4 MG [id number] TOLTERODINE TARTRATE Inactive ZYPREXA 7.5 MG TABS 1 at HS ZYPREXA 7.5 MG TABS 751214 OLANZAPINE Inactive THIOTHIXENE 5 MG CAPS by mouth twice a day THIOTHIXENE 5 MG CAPS 668849 THIOTHIXENE Inactive UROXATRAL 10 MG OY30N-PJE Take 1 tablet by mouth daily UROXATRAL 10 MG TX00C-QOC ALFUZOSIN HCL Inactive ACYCLOVIR 400 MG ORAL TABS 1 pill three times daily x 5 days, for cold sore outbreak ACYCLOVIR 400 MG ORAL TABS 055540 ACYCLOVIR Inactive CEFDINIR 300 MG CAPS by mouth twice a day CEFDINIR 300 MG CAPS 169211 CEFDINIR Inactive AZITHROMYCIN 500 MG SOLR 1 po q day AZITHROMYCIN 500 MG SOLR 988712 AZITHROMYCIN Inactive AMOXICILLIN 500 MG CAPS 2 po BID x 10 days AMOXICILLIN 500 MG CAPS 122308 AMOXICILLIN Inactive PENICILLIN V POTASSIUM 500 MG TABS 1 pill by mouth three times daily PENICILLIN V POTASSIUM 500 MG TABS 240113 PENICILLIN V POTASSIUM Inactive Immunizations Vaccine Administration [...] Fluvirin, Fluarix, Agriflu(>=18 yo)) Fluzone (>3 yrs.) [[id number]] Influenza, seasonal, injectable pneumococcal immunization administered Pneumovax [...] HGBA1C - Chemistry sodium, serum 130 mmol/L 250-669 2675/06/09 potassium, serum 4.0 mmol/L 3.5-5.2 chloride, serum 92 mmol/L 98-107 carbon dioxide, venous blood 22.1 mmol/L 21.0-32.0 blood glucose 60 mg/dL 65-110 calcium, serum 9.5 mg/dL 8.5-10.1 urea nitrogen, blood 14 mg/dL 7-18 creatinine, serum 1.30 mg/dL 0.60-1.30 hemoglobin A1C, blood, as % of total hemoglobin 6.0 % 4.3-6.0 sodium, serum 131 mmol/L 928-323 4475/12/30 potassium, serum 5.0 mmol/L 3.5-5.2 chloride, serum [...] acid - Chemistry cholesterol, serum 151 mg/dL 264-374 5711/05/01 triglyceride, serum, fasting 356 mg/dL 30-200 HDL cholesterol, serum 19 mg/dL 32-96 LDL cholesterol, serum 61 mg/dL 0-130 TSH 2.22 m[iU]/mL 0.36-3.74 prostate specific antigen 0.11 ng/mL 0.00-4.00 albumin/creatinine ratio, urine < 30 mg/g mg/g{creat} 0-29 uric acid, serum 6.0 mg/dL 2.6-7.2 sodium, serum 130 mmol/L 841-954 4620/05/01 potassium, serum 5.2 mmol/L 3.5-5.2 chloride, serum [...] Panel - Chemistry sodium, serum 127 mmol/L 225-481 6268/10/27 potassium, serum 4.1 mmol/L 3.5-5.2 chloride, serum [...] mg/dL Encounters Code Encounter Date Provider Facility CPT-75655 Level 3 Est. Patient 14:36:26 RETAIL BANKING MANAGER Marvel [facility]-00998 Level 3 Est. Patient 13:34:47 RETAIL BANKING MANAGER Alina Castaneda MD [facility]-15695 Level 3 Est. Patient 19:52:08 RETAIL BANKING MANAGER Alina Castaneda MD [facility]55382 Level 3 Est. Patient 10:01:51 [facility]ING [facility]-33365 Level 3 Est. Patient 21:54:06 CDT Vanessa Hickey MD [facility]-32975 Level 3 Est. Patient 08:54:46 CDT Alina Castaneda MD [facility]-40853 Level 3 Est. [facility] 09:32:11 [facility] Patient 12:02:49 CDT Alina Castaneda MD [facility]86056 Level 3 Est. Patient 19:17:33 CDT Alina Castaneda MD [facility]-16268 Level 3 Est. Patient 13:19:10 CDT Marvel [facility]-88994 Level 3 Est. Patient 08:20:05 CDT Alina Castaneda MD [facility]-11358 Level 3 Est. Patient 15:17:18 CDT Alina Castaneda MD [facility]96257 Level 3 Est. Patient 14:25:36 RETAIL BANKING MANA[facility]-07461 Level 3 Est. Patient 10:09:15 RETAIL BANKING MANAGER Marvel [facility]-04779 Level 3 Est. Patient 21:28:43 CDT Alina Castaneda MD [facility]-96235 Level 3 Est. Patient 15:20:11 [facility]-22902 Level 4 Est. Patient 19:08:12 CDT Alina Castaneda MD [facility]-27393 Level 3 Est. Patient 15:06:39 CDT Marvel [facility]-75155 Level 4 Est. Patient 17:48:15 CDT Alina Castaneda MD [facility]-16067 Level 3 Est. Patient 14:53:49 CDT Alina Castaneda MD [facility]-49680 Level 3 Est. Patient 09:35:16 CDT Alina Castaneda MD [facility]-06758 Level 3 Est. Patient 12:23:22 CDT Alina Castaneda MD [facility]-88323 Level 3 Est. Patient 16:19:15 CDT Alina Castaneda MD [facility]-38597 Level 3 Est. Patient 21:39:56 RETAIL BANKING MANAGER Alina Castaneda MD [facility]-53510 Level 4 Est. Patient 14:12:56 RETAIL BANKING MANAGER Alina Castaneda MD [facility]-74688 Level 2 Est. Patient 15:34:57 RETAIL BANKING MANAGER Alina Castaneda MD [facility]-86970 Level 3 Est. Patient 12:17:04 RETAIL BANKING MANAGER Alina Castaneda MD [facility]-84593 Level 3 Est. Patient 09:18:18 RETAIL BANKING MANAGER [facility]-32465 Level 2 Est. Patient 21:50:24 CDT Alina Castaneda MD [facility]-06139 Level 3 Est. Patient 09:17:28 CDT Marvel [facility]-91310 Level 4 Est. Patient 18:54:02 CDT Alina Castaneda MD [facility]10474 Level 3 Est. Patient 10:47:10 CDT Alina Castaneda MD [facility]33831 Level 3 Est. Patient 09:22:20 CDT Marvel [facility]-44567 Level 3 Est. Patient 16:39:43 CDT Marvel [facility]-47672 Level 3 Est. Patient 16:05:16 CDT Alina Castaneda MD [facility]-12933 Level 3 Est. Patient 00:29:15 CDT Alina Castaneda MD [facility]99024 Level 3 Est. Patient 10:49:22 RETAIL BANKING MANAGER Marvel [facility]-07913 Level 3 Est. Patient 21:30:19 RETAIL BANKING MANAGER Alina Castaneda MD [facility]-45006 Level 4 Est. Patient 17:04:11 RETAIL BANKING MANAGER Marvel [facility]-83207 Level 3 Est. Patient 15:34:11 RETAIL BANKING MANAGER Marvel [facility]-69935 Level 2 Est. Patient 12:51:58 RETAIL BANKING MANAGER Alina Castaneda MD [facility]13996 Level 3 Est. Patient 13:20:01 RETAIL BANKING MANAGER Alina Castaneda MD PhD [facility] CPT-79455 Level 3 Est. Patient 09:23:35 CDT Alina Castaneda MD PhD [facility] Procedures Code Procedure Name Date Entry Date Standard Description CPT-96110 Bladder Scan 21:54:06 CDT CPT-G0008 Administration of Influenza Virus Vaccine 13:05:26 CDT CPT-60141 Fluzone Quadrivalent Intramuscular Suspension 0.5 ML 13: 05:26 CDT CPT-10295 Administration single or combination vaccine inc oral 11 :49:51 CDT CPT-63076 Pneumovax 11:49:51 CDT CPT-73644 Ribs unilateral 2V 12:37:22 RETAIL BANKING MANAGER CPT-26710 Chest 2V Frontal and Lat 17:15:26 CDT CPT-50367 Abx/Therapy Injection 18:54:02 CDT CPT-J0696 Rocephin 1000 mg (Ceftriaxone) 16:00:32 CDT CPT-52590 Chest 2V Frontal and Lat 15:26:45 CDT CPT-48124 Chest 2V Frontal and Lat 10:23:27 CDT CPT-31326 Venipuncture Draw Fee 10:11:00 CDT CPT-06889 Administration single or combination vaccine inc oral 11 :56:38 CDT CPT-44791 Influenza split virus > age 3 11:56:38 CDT CPT-04357 Venipuncture Draw Fee 08:49:54 RETAIL BANKING MANAGER CPT-58476 EKG Trac and Interp 17:54:19 RETAIL BANKING MANAGER
--- OUTSIDE RECORDS SUMMARY | 2018-07-02 20:43 | XMS REPORT | Clinical Summary ---
Author Author Admin, TERELL Organization [facility] Address Unknown Phone Allergies, Adverse Reactions, Alerts [...] four times per day INSULIN SYRINGE-NEEDLE U-100 [id number] Active Alina Castaneda MD PhD Active CYCLOBENZAPRINE HCL 10 MG TABS 1 tablet by mouth three times daily, scheduled CYCLOBENZAPRINE HCL 99930320344 Active Alina Castaneda MD PhD Active HUMALOG 100 UNIT/ML SOLN take 40u with each meal INSULIN LISPRO (HUMAN) 57582160018 Active Alina Castaneda MD PhD Active TOLTERODINE TARTRATE 2 MG TABS 1 pill twice daily, for bladder TOLTERODINE TARTRATE 33380629117 Active Alnia Castaneda MD PhD Active DETROL LA 4 MG [id number] Take 1 tablet by mouth daily TOLTERODINE TARTRATE 44915166130 No Longer Active Alina Castaneda MD PhD Active HYDROCODONE-ACETAMINOPHEN 5-325 MG TABS 2 tabs by mouth three times daily as needed for pain HYDROCODONE-ACETAMINOPHEN 38254396684 Active Alina Castaneda MD PhD Active TERESE CONTOUR TEST STRP monitor blood sugars 3x/day GLUCOSE BLOOD 16864215599 No Longer Active Alina Castaneda MD PhD Active EQL TRUETEST TEST STRP Test blood sugar TID GLUCOSE BLOOD 38588625981 No Longer Active Alina Castaneda MD PhD Active FLUTICASONE PROPIONATE 50 MCG/ACT SUSP 2 sprays each nostril qDay x 30 days FLUTICASONE PROPIONATE 71473962820 No Longer Active Alina Castaneda MD PhD Active IBUPROFEN 200 MG TABS 1 Q 6 hr. PRN IBUPROFEN 08411003685 No Longer Active Alina Castaneda MD PhD Active NIACIN ER 500 MG CR-TABS 4 qHS (for triglycerides) NIACIN 39386883501 No Longer Active Alina Castaneda MD PhD Active LEVEMIR 100 UNIT/ML SOLN Take 100u at 7-8pm INSULIN DETEMIR 51968343080 Active Alina Castaneda MD PhD Active TRUETEST TEST STRP check sugars 4x/day GLUCOSE BLOOD 06232612229 Active Alina Castaneda MD PhD Active ALFUZOSIN HCL ER 10 MG [id number] 1 tablet daily ALFUZOSIN HCL 02951703052 Active Vanessa Hickey MD Active CLONAZEPAM 1 MG TABS 1 pill by mouth three times daily CLONAZEPAM 34724143785 Active Alina Castaneda MD PhD Active LOVAZA 1 GM CAPS 4 daily (for triglycerides) ZEVVC-7-ANBM ETHYL ESTERS 21397967016 Active Alina Castaneda MD PhD Active SAPHRIS 5 MG SUBL by mouth twice a day ASENAPINE MALEATE 15725538154 No Longer Active Maliheh Gurdeepglestela [facility] Active ACETAMINOPHEN 500 MG TABS 2 Q 6 hr. PRN ACETAMINOPHEN 80138860806 No Longer Active Marvel MENDOZAP Active VERAPAMIL HCL ER 120 MG [id number] 1 pill by mouth twice a day, for headache prevention/control VERAPAMIL HCL 50589039423 Active Alina Castaneda MD PhD Active ORPHENADRINE CITRATE ER 100 MG [id number]-MGG 1 every 12 hr. as needed ORPHENADRINE CITRATE 07122633270 No Longer Active Alina Castaneda MD PhD Active NIACIN CR 500 MG CR-TABS 2 qHS NIACIN 22543228402 No Longer Active Alina Castaneda MD PhD Active AMOXICILLIN 500 MG CAPS 2 po BID x 10 days AMOXICILLIN 83650510281 No Longer Active Alina Castaneda MD PhD Active ZYPREXA 7.5 MG TABS 1 at HS OLANZAPINE 09076867869 Active Alina Castaneda MD PhD Active THIOTHIXENE 5 MG CAPS by mouth twice a day THIOTHIXENE 02072408968 Active Alina Castaneda MD PhD Active HYDROCODONE-ACETAMINOPHEN 7.5-325 MG TABS 1 four times a day as needed for pain HYDROCODONE-ACETAMINOPHEN 48889209755 No Longer Active Alina Castaneda MD PhD Active METFORMIN HCL ER 500 MG [id number] Take three tablets by mouth everyday METFORMIN HCL 61664749271 Active Marvel MENDOZAP Active DOXEPIN HCL 10 MG CAPS Take 1 tablet by mouth daily DOXEPIN HCL 11687048109 No Longer Active [facility] Active NAVANE 10 MG CAPS 1/2 tablet twice a day THIOTHIXENE No Longer Active Salina ROBBINS Active CYCLOBENZAPRINE HCL 10 MG TABS 1/2 tablet by mouth every 8 hours as needed for muscle spasms CYCLOBENZAPRINE HCL 37908482937 No Longer Active Alina Castaneda MD PhD Active BACTROBAN 2 % CREAM apply to ear and nose twice daily MUPIROCIN CALCIUM 39004092322 No Longer Active Alina Castaneda MD PhD Active HYDROCODONE-ACETAMINOPHEN 5-325 MG TABS take one tablet by mouth every four hours as needed for pain HYDROCODONE-ACETAMINOPHEN 66834277931 No Longer Active Alina Castaneda MD PhD Active ZOLPIDEM TARTRATE 10 MG TABS take at bedtime ZOLPIDEM TARTRATE 10576755844 Active Alina Castaneda MD PhD Active ZYPREXA 5 MG TABS take one tablet by mouth every evening OLANZAPINE 56400664733 No Longer Active Alina Castaneda MD PhD Active ALBUTEROL SULFATE 0.083 % NEBU SOLN one vial per nebulizer TID and PRN cough/ soa ALBUTEROL SULFATE 17124649437 No Longer Active Alina Castaneda MD PhD Active GUAIFENESIN 600 MG [id number]-RFP 1 tablet by mouth twice daily if needed for cough GUAIFENESIN 69453689611 No Longer Active Marvel MARROQUIN Active AZITHROMYCIN 500 MG SOLR 1 po q day AZITHROMYCIN 47272712978 No Longer Active Alina Castaneda MD PhD Active METOPROLOL SUCCINATE 100 MG TQ55S-VVC 1 by mouth daily for blood pressure METOPROLOL SUCCINATE 42554346073 Active Alnia Castaneda MD PhD Active PROMETHAZINE-CODEINE 6.25-10 MG/5ML SYRP 1 tsp po q 6 hours prn cough PROMETHAZINE-CODEINE 61782248593 No Longer Active Alina Castaneda MD PhD Active CEFDINIR 300 MG CAPS by mouth twice a day CEFDINIR 41414084216 No Longer Active Alina Castaneda MD PhD Active METFORMIN HCL 500 MG [id number]-WUA Take 3 tablets by mouth everyday METFORMIN HCL 05468623151 No Longer Active Alina Castaneda MD PhD Active LEVEMIR 100 UNIT/ML SOLN 90 units SQ qHS INSULIN DETEMIR 26508416037 No Longer Active Marvel MARROQUIN Active TOPROL XL 100 MG [id number]-VJF 1 @ HS METOPROLOL SUCCINATE 66432075730 No Longer Active Marvel MARROQUIN Active ALLOPURINOL 300 MG TABS Take one by mouth daily ALLOPURINOL 69178806739 Active Alina Castaneda MD PhD Active ZYPREXA 10 MG TABS Take one by mouth daily OLANZAPINE 54352354037 No Longer Active Alina Castaneda MD PhD Active NOVOLOG 100 UNIT/ML SOLN 40 units with every meal INSULIN ASPART 35539195544 No Longer Active Alina Castaneda MD PhD Active VERAPAMIL HCL CR 120 MG TAB CR 1 qPM VERAPAMIL HCL 87790105454 No Longer Active Salina Han A Active ZYPREXA 15 MG TABS Take 1 tablet by mouth daily OLANZAPINE 85469999493 No Longer Active Marvel MARROQUIN Active LISINOPRIL 20 MG TABS 1 BID LISINOPRIL 37332962804 Active Mao Rodriguez MD Active ALBUTEROL SULFATE (2.5 MG/3ML) 0.083% NEBU 1 neb tid and prn cough ALBUTEROL SULFATE 65530419620 No Longer Active Alina Castaneda MD PhD Active FLUVOXAMINE MALEATE 100 MG TABS Take one (1) tablet by mouth am, 1/2 at noon, 1 pm FLUVOXAMINE MALEATE 44271496329 Active Alina Castaneda MD PhD Active TRAVATAN Z 0.004 % SOLN 1 gtt each eye daily TRAVOPROST 25951289201 Active Alina Mendez Active LANTUS 100 UNIT/ML SOLN 60 units sq q hs INSULIN GLARGINE 85959028508 No Longer Active Alina Mendez Active UROXATRAL 10 MG AB15S-LCR Take 1 tablet by mouth daily ALFUZOSIN HCL 86559884927 Active Tanya MARROQUIN Active ALBUTEROL SULFATE (2.5 MG/3ML) 0.083% NEBU 1 neb tid and prn cough ALBUTEROL SULFATE (2.5 MG/3ML) 0.083% NEBU 466389 ALBUTEROL SULFATE Inactive ZYPREXA 15 MG TABS Take 1 tablet by mouth daily ZYPREXA 15 MG TABS 441698 OLANZAPINE Inactive VERAPAMIL HCL CR 120 MG TAB CR 1 qPM VERAPAMIL HCL CR 120 MG TAB CR VERAPAMIL HCL Inactive ZYPREXA 10 MG TABS Take one by mouth daily ZYPREXA 10 MG TABS 995431 OLANZAPINE Inactive TOPROL XL 100 MG [id number] 1 @ HS TOPROL XL 100 MG BH87V-YDU METOPROLOL SUCCINATE Inactive LEVEMIR 100 UNIT/ML SOLN 90 units SQ qHS LEVEMIR 100 UNIT/ML SOLN INSULIN DETEMIR Inactive PROMETHAZINE-CODEINE 6.25-10 MG/5ML SYRP 1 tsp po q 6 hours prn cough PROMETHAZINE-CODEINE 6.25-10 MG/5ML SYRP 797463 PROMETHAZINE- CODEINE Inactive GUAIFENESIN 600 MG NF91B-AKV 1 tablet by mouth twice daily if needed for cough GUAIFENESIN 600 MG PW80P-PBD GUAIFENESIN Inactive ALBUTEROL SULFATE 0.083 % NEBU SOLN one vial per nebulizer TID and PRN cough/ soa ALBUTEROL SULFATE 0.083 % NEBU SOLN 684633 ALBUTEROL SULFATE Inactive ZYPREXA 5 MG TABS take one tablet by mouth every evening ZYPREXA 5 MG TABS 518158 OLANZAPINE Inactive HYDROCODONE-ACETAMINOPHEN 5-325 MG TABS take one tablet by mouth every four hours as needed for pain HYDROCODONE-ACETAMINOPHEN 5-325 MG TABS 635801 HYDROCODONE-ACETAMINOPHEN Inactive BACTROBAN 2 % CREAM apply to ear and nose twice daily BACTROBAN 2 % CREAM 147529 MUPIROCIN CALCIUM Inactive CYCLOBENZAPRINE HCL 10 MG TABS 1/2 tablet by mouth every 8 hours as needed for muscle spasms CYCLOBENZAPRINE HCL 10 MG TABS 602836 CYCLOBENZAPRINE HCL Inactive NAVANE 10 MG CAPS 1/2 tablet twice a day NAVANE 10 MG CAPS THIOTHIXENE Inactive DOXEPIN HCL 10 MG CAPS Take 1 tablet by mouth daily DOXEPIN HCL 10 MG CAPS 3866488 DOXEPIN HCL Inactive HYDROCODONE-ACETAMINOPHEN 7.5-325 MG TABS 1 four times a day as needed for pain HYDROCODONE-ACETAMINOPHEN 7.5-325 MG TABS 257748 HYDROCODONE-ACETAMINOPHEN Inactive NIACIN CR 500 MG CR-TABS 2 qHS NIACIN CR 500 MG CR- TABS NIACIN Inactive ORPHENADRINE CITRATE ER 100 MG [id number] 1 every 12 hr. as needed ORPHENADRINE CITRATE ER 100 MG DI70V-VUM ORPHENADRINE CITRATE Inactive ACETAMINOPHEN 500 MG TABS 2 Q 6 hr. PRN ACETAMINOPHEN 500 MG TABS 417371 ACETAMINOPHEN Inactive SAPHRIS 5 MG SUBL by mouth twice a day SAPHRIS 5 MG SUBL ASENAPINE MALEATE Inactive NIACIN ER 500 MG CR-TABS 4 qHS (for triglycerides) NIACIN ER 500 MG CR-TABS NIACIN Inactive IBUPROFEN 200 MG TABS 1 Q 6 hr. PRN IBUPROFEN 200 MG TABS 541023 IBUPROFEN Inactive FLUTICASONE PROPIONATE 50 MCG/ACT SUSP 2 sprays each nostril qDay x 30 days FLUTICASONE PROPIONATE 50 MCG/ACT SUSP 108866 FLUTICASONE PROPIONATE Inactive EQL TRUETEST TEST STRP Test blood sugar TID EQL TRUETEST TEST STRP GLUCOSE BLOOD Inactive TERESE CONTOUR TEST STRP monitor blood sugars 3x/day TERESE CONTOUR TEST STRP GLUCOSE BLOOD Inactive DETROL LA 4 MG [id number] Take 1 tablet by mouth daily DETROL LA 4 MG [id number]-UOW TOLTERODINE TARTRATE Inactive CEFDINIR 300 MG CAPS by mouth twice a day CEFDINIR 300 MG CAPS 129577 CEFDINIR Inactive AZITHROMYCIN 500 MG SOLR 1 po q day AZITHROMYCIN 500 MG SOLR 002422 AZITHROMYCIN Inactive AMOXICILLIN 500 MG CAPS 2 po BID x 10 days AMOXICILLIN 500 MG CAPS 671179 AMOXICILLIN Inactive Immunizations Vaccine Administration Date Value [...] Fluvirin, Fluarix, Agriflu(>=18 yo)) Fluzone (>3 yrs.) [XLX357] Influenza, seasonal, injectable pneumococcal immunization administered Pneumovax [...] acid - Chemistry sodium, serum 130 mmol/L 102-428 2705/05/01 potassium, serum 5.2 mmol/L 3.5-5.2 chloride, serum [...] 0.40 mg/dL 0.00-1.00 cholesterol, serum 151 mg/dL 170-339 8025/05/01 triglyceride, serum, fasting 356 mg/dL 30-200 HDL [...] HGBA1C - Chemistry sodium, serum 126 mmol/L 373-898 4337/02/26 potassium, serum 4.8 mmol/L 3.5-5.2 chloride, serum [...] DIRECT - Chemistry cholesterol, serum 158 mg/dL 110-748 3473/07/11 triglyceride, serum, fasting 489 mg/dL 30-200 HDL [...] mg/dL Encounters Code Encounter Date Provider Facility CPT-04943 Level 3 Est. Patient 08:20:05 CDT Alina [facility] MD [id number] Level 3 Est. Patient 15:17:18 CDT Alina Castaneda MD [id number] Level 3 Est. Patient 14:25:36 [employer] [facility]-22323 Level 3 Est. Patient 10:09:15 [employer] [facility] CPT-88178 Level 3 Est. Patient 21:28:43 CDT Alina Castaneda MD PhD [id number] Level 3 Est. Patient 15:20:11 CDT [facility]-90332 Level 4 Est. Patient 19:08:12 CDT Alina Castaneda MD PhD [facility]01056 Level 3 Est. Patient 15:06:39 CDT [facility]-99348 Level 4 Est. Patient 17:48:15 CDT Alina Castaneda MD [facility]-78192 Level 3 Est. Patient 14:53:49 CDT Alina Castaneda MD [facility]-64602 Level 3 Est. Patient 09:35:16 CDT Alina Castaneda MD [facility]-67437 Level 3 Est. Patient 12:23:22 CDT Alina Castaneda MD [facility]-36672 Level 3 Est. Patient 16:19:15 CDT Alina Castaneda MD [facility]-74333 Level 3 Est. Patient 21:39:56 [employer] Alina Castaneda MD [facility]-29547 Level 4 Est. Patient 14:12:56 [employer] Alina Castaneda MD [facility]-41666 Level 2 Est. Patient 15:34:57 [employer] Alina Castaneda MD [facility]-83034 Level 3 Est. Patient 12:17:04 [employer] Alina Castaneda MD [facility]-26143 Level 3 Est. Patient 09:18:18 [employer] Marvel [facility]-81870 Level 2 Est. Patient 21:50:24 CDT Alina Castaneda MD [facility]-34846 Level 3 Est. Patient 09:17:28 CDT Marvel [facility]-57116 Level 4 Est. Patient 18:54:02 CDT Alina Castaneda MD [facility]-18726 Level 3 Est. Patient 10:47:10 CDT Alina Castaneda MD [facility]-09484 Level 3 Est. Patient 09:22:20 [facility] Level 3 Est. Patient 16:39:43 [facility]T [facility] CPT-26734 Level 3 Est. Patient 16:05:16 CDT Alina Castaneda MD [facility] CPT-39110 Level 3 Est. Patient 00:29:15 CDT Alina Castaneda MD [facility] CPT-11322 Level 3 Est. Patient 10:49:22 [employer] Marvel Thurstonestela [facility] CPT-31669 Level 3 Est. Patient 21:30:19 [employer] Alina Castaneda MD [facility] CPT-38377 Level 4 Est. Patient 17:04:11 [employer] [facility]-46909 Level 3 Est. Patient 15:34:11 [employer] [facility] CPT-65527 Level 2 Est. Patient 12:51:58 [employer] Alina Castaneda MD [facility] CPT-75675 Level 3 Est. Patient 13:20:01 [employer] Alina Castaneda MD [facility] CPT-10584 Level 3 Est. Patient 09:23:35 CDT Alina Castaneda MD [facility] Procedures Code Procedure Name Date Entry Date Standard Description CPT-77358 Administration single or combination vaccine inc oral 11 :49:51 CDT CPT-89186 Pneumovax 11:49:51 CDT CPT-62984 Ribs unilateral 2V 12:37:22 [employer] CPT-65485 Chest 2V Frontal and Lat 17:15:26 CDT CPT-41756 Abx/Therapy Injection 18:54:02 CDT CPT-J0696 Rocephin 1000 mg (Ceftriaxone) 16:00:32 CDT CPT-16730 Chest 2V Frontal and Lat 15:26:45 CDT CPT-04822 Chest 2V Frontal and Lat 10:23:27 CDT CPT-73705 Venipuncture Draw Fee 10:11:00 CDT CPT-39973 Administration single or combination vaccine inc oral 11 :56:38 CDT CPT-30294 Influenza split virus > age 3 11:56:38 CDT CPT-53257 Venipuncture Draw Fee 08:49:54 [employer] CPT-34802 EKG Trac and Interp 17:54:19 [employer]
--- OUTSIDE RECORDS SUMMARY | 2018-07-02 20:44 | XMS REPORT | Clinical Summary ---
[...] evening for chronic pain control MORPHINE SULFATE [id number] Active Alina Castaneda MD PhD Active LATUDA 80 MG TABS 1 tab by mouth every evening LURASIDONE HCL 60446107262 Active Alina Castaneda MD PhD Active UROXATRAL 10 MG [id number]-[id number] Take 1 tablet by mouth daily ALFUZOSIN HCL 44821323625 No Longer Active Alina Castaneda MD PhD Active THIOTHIXENE 5 MG CAPS by mouth twice a day THIOTHIXENE 65095594167 No Longer Active Alina Castaneda MD PhD Active ZYPREXA 7.5 MG TABS 1 at HS OLANZAPINE 89225686122 No Longer Active Alina Castaneda MD PhD Active HUMALOG 100 UNIT/ML SOLN Take 20 units with breakfast, 10u with lunch and suppetr. INSULIN LISPRO (HUMAN) 90762988032 Active Maljohn Ziglari ROTARY SWAGING MACHINE OPERATOR Active LEVEMIR 100 UNIT/ML SOLN Take 70 u at 7-8pm INSULIN DETEMIR 91602862698 Active Marvel Ziglari ROTARY SWAGING MACHINE OPERATOR Active BD INSULIN SYRINGE 28G X 1/2" 1 ML MISC 1 four times per day INSULIN SYRINGE-NEEDLE U-100 89906721631 Active Marvel Mackenzieglari ROTARY SWAGING MACHINE OPERATOR Active CYCLOBENZAPRINE HCL 10 MG TABS 1 tablet by mouth three times daily, scheduled CYCLOBENZAPRINE HCL 78638111638 Active Alina Castaneda MD PhD Active TOLTERODINE TARTRATE 2 MG TABS 1 pill twice daily, for bladder TOLTERODINE TARTRATE 71603759474 Active Alina Castaneda MD PhD Active DETROL LA 4 MG UL47G-HFR Take 1 tablet by mouth daily TOLTERODINE TARTRATE 94671631061 No Longer Active Alina Castaneda MD PhD Active HYDROCODONE-ACETAMINOPHEN 5-325 MG TABS 2 tabs by mouth three times daily as needed for pain HYDROCODONE-ACETAMINOPHEN 17032760454 Active Alina Castaneda MD PhD Active TERESE CONTOUR TEST STRP monitor blood sugars 3x/day GLUCOSE BLOOD 96894452161 No Longer Active Alina Castaneda MD PhD Active EQL TRUETEST TEST STRP Test blood sugar TID GLUCOSE BLOOD 17841185516 No Longer Active Alina Castaneda MD PhD Active FLUTICASONE PROPIONATE 50 MCG/ACT SUSP 2 sprays each nostril qDay x 30 days FLUTICASONE PROPIONATE 56293718645 No Longer Active Alina Castaneda MD PhD Active IBUPROFEN 200 MG TABS 1 Q 6 hr. PRN IBUPROFEN 88134886361 No Longer Active Alina Castaneda MD PhD Active NIACIN ER 500 MG CR-TABS 4 qHS (for triglycerides) NIACIN 32910147186 No Longer Active Alina Castaneda MD PhD Active TRUETEST TEST STRP check sugars 4x/day GLUCOSE BLOOD 84875126773 Active Alina Castaneda MD PhD Active ALFUZOSIN HCL ER 10 MG [id number] 1 tablet daily ALFUZOSIN HCL 69789066364 Active Vanessa Hickey MD Active CLONAZEPAM 1 MG TABS 1 pill by mouth three times daily CLONAZEPAM 33176729098 Active Alina Castaneda MD PhD Active LOVAZA 1 GM CAPS 4 daily (for triglycerides) [id number] ETHYL ESTERS 80925174096 Active Alina Castaneda MD PhD Active SAPHRIS 5 MG SUBL by mouth twice a day ASENAPINE MALEATE 06393448184 No Longer Active Marvel MENDOZAP Active ACETAMINOPHEN 500 MG TABS 2 Q 6 hr. PRN ACETAMINOPHEN 38967948094 No Longer Active Maljohn Mackenzieglari ROTARY SWAGING MACHINE OPERATOR Active VERAPAMIL HCL ER 120 MG [id number]-PHL 1 pill by mouth twice a day, for headache prevention/control VERAPAMIL HCL 36526012443 Active Alina Castaneda MD PhD Active ORPHENADRINE CITRATE ER 100 MG QH80D-UTR 1 every 12 hr. as needed ORPHENADRINE CITRATE 89912387482 No Longer Active Alina Castaneda MD PhD Active NIACIN CR 500 MG CR-TABS 2 qHS NIACIN 50206611884 No Longer Active Alina Castaneda MD PhD Active AMOXICILLIN 500 MG CAPS 2 po BID x 10 days AMOXICILLIN 82768278603 No Longer Active Alina Castaneda MD PhD Active HYDROCODONE-ACETAMINOPHEN 7.5-325 MG TABS 1 four times a day as needed for pain HYDROCODONE-ACETAMINOPHEN 36405782593 No Longer Active Alina Castaneda MD PhD Active METFORMIN HCL ER 500 MG CS31J-JRS Take three tablets by mouth everyday METFORMIN HCL 73817562709 Active Alina Castaneda MD PhD Active DOXEPIN HCL 10 MG CAPS Take 1 tablet by mouth daily DOXEPIN HCL 36427245070 No Longer Active Salina Han RMA Active NAVANE 10 MG CAPS 1/2 tablet twice a day THIOTHIXENE No Longer Active Salina Han RMA Active CYCLOBENZAPRINE HCL 10 MG TABS 1/2 tablet by mouth every 8 hours as needed for muscle spasms CYCLOBENZAPRINE HCL 21770285361 No Longer Active Alina Castaneda MD PhD Active BACTROBAN 2 % CREAM apply to ear and nose twice daily MUPIROCIN CALCIUM 35109960551 No Longer Active Alina Castaneda MD PhD Active HYDROCODONE-ACETAMINOPHEN 5-325 MG TABS take one tablet by mouth every four hours as needed for pain HYDROCODONE-ACETAMINOPHEN 28643083533 No Longer Active Alina Castaneda MD PhD Active ZOLPIDEM TARTRATE 10 MG TABS take at bedtime ZOLPIDEM TARTRATE 72006935906 Active Alina Castaneda MD PhD Active ZYPREXA 5 MG TABS take one tablet by mouth every evening OLANZAPINE 47561667145 No Longer Active Alina Castaneda MD PhD Active ALBUTEROL SULFATE 0.083 % NEBU SOLN one vial per nebulizer TID and PRN cough/ soa ALBUTEROL SULFATE 67015996082 No Longer Active Alina Castaneda MD PhD Active GUAIFENESIN 600 MG AM29K-CZP 1 tablet by mouth twice daily if needed for cough GUAIFENESIN 21330306728 No Longer Active Marvel Charles ROTARY SWAGING MACHINE OPERATOR Active AZITHROMYCIN 500 MG SOLR 1 po q day AZITHROMYCIN 18090995181 No Longer Active Alina Castaneda MD PhD Active METOPROLOL SUCCINATE 100 MG HH75O-FCJ 1 by mouth daily for blood pressure METOPROLOL SUCCINATE 69836482730 Active Alina Castaneda MD PhD Active PROMETHAZINE-CODEINE 6.25-10 MG/5ML SYRP 1 tsp po q 6 hours prn cough PROMETHAZINE-CODEINE 41293614091 No Longer Active Alina Castaneda MD PhD Active CEFDINIR 300 MG CAPS by mouth twice a day CEFDINIR 49483541323 No Longer Active Alina Castaneda MD PhD Active METFORMIN HCL 500 MG GQ38L-HZU Take 3 tablets by mouth everyday METFORMIN HCL 39501481298 No Longer Active Alina Castaneda MD PhD Active LEVEMIR 100 UNIT/ML SOLN 90 units SQ qHS INSULIN DETEMIR 20547572389 No Longer Active Marvel MARROQUIN Active TOPROL XL 100 MG [id number]-ONI 1 @ HS METOPROLOL SUCCINATE 85648426325 No Longer Active Marvel MARROQUIN Active ALLOPURINOL 300 MG TABS Take one by mouth daily ALLOPURINOL 42319963759 Active Alina Castaneda MD PhD Active ZYPREXA 10 MG TABS Take one by mouth daily OLANZAPINE 72047044113 No Longer Active Alina Castaneda MD PhD Active NOVOLOG 100 UNIT/ML SOLN 40 units with every meal INSULIN ASPART 31503347088 No Longer Active Alina Castaneda MD PhD Active VERAPAMIL HCL CR 120 MG TAB CR 1 qPM VERAPAMIL HCL 27312100999 No Longer Active Salina Han [facility] Active ZYPREXA 15 MG TABS Take 1 tablet by mouth daily OLANZAPINE 72127962383 No Longer Active Marvel MARROQUIN Active LISINOPRIL 20 MG TABS 1 BID LISINOPRIL 69384428607 Active Alina Castaneda MD PhD Active ALBUTEROL SULFATE (2.5 MG/3ML) 0.083% NEBU 1 neb tid and prn cough ALBUTEROL SULFATE 49999166458 No Longer Active Alina Castaneda MD PhD Active FLUVOXAMINE MALEATE 100 MG TABS Take one (1) tablet by mouth am, 1/2 at noon, 1 pm FLUVOXAMINE MALEATE 54895720757 Active Alina Castaneda MD PhD Active TRAVATAN Z 0.004 % SOLN 1 gtt each eye daily TRAVOPROST 98788049185 Active CRYSTAL Suarez Active LANTUS 100 UNIT/ML SOLN 60 units sq q hs INSULIN GLARGINE 45456166812 No Longer Active CRYSTAL Suarez Active ALBUTEROL SULFATE (2.5 MG/3ML) 0.083% NEBU 1 neb tid and prn cough ALBUTEROL SULFATE (2.5 MG/3ML) 0.083% NEBU 388682 ALBUTEROL SULFATE Inactive ZYPREXA 15 MG TABS Take 1 tablet by mouth daily ZYPREXA 15 MG TABS 961377 OLANZAPINE Inactive VERAPAMIL HCL CR 120 MG TAB CR 1 qPM VERAPAMIL HCL CR 120 MG TAB CR VERAPAMIL HCL Inactive ZYPREXA 10 MG TABS Take one by mouth daily ZYPREXA 10 MG TABS 810888 OLANZAPINE Inactive TOPROL XL 100 MG [id number]-BCD 1 @ HS TOPROL XL 100 MG QU74T-OOO METOPROLOL SUCCINATE Inactive LEVEMIR 100 UNIT/ML SOLN 90 units SQ qHS LEVEMIR 100 UNIT/ML SOLN INSULIN DETEMIR Inactive PROMETHAZINE-CODEINE 6.25-10 MG/5ML SYRP 1 tsp po q 6 hours prn cough PROMETHAZINE-CODEINE 6.25-10 MG/5ML SYRP 676934 PROMETHAZINE- CODEINE Inactive GUAIFENESIN 600 MG UP42E-NWK 1 tablet by mouth twice daily if needed for cough GUAIFENESIN 600 MG RB06O-VSQ GUAIFENESIN Inactive ALBUTEROL SULFATE 0.083 % NEBU SOLN one vial per nebulizer TID and PRN cough/ soa ALBUTEROL SULFATE 0.083 % NEBU SOLN 315772 ALBUTEROL SULFATE Inactive ZYPREXA 5 MG TABS take one tablet by mouth every evening ZYPREXA 5 MG TABS 003611 OLANZAPINE Inactive HYDROCODONE-ACETAMINOPHEN 5-325 MG TABS take one tablet by mouth every four hours as needed for pain HYDROCODONE-ACETAMINOPHEN 5-325 MG TABS 228792 HYDROCODONE-ACETAMINOPHEN Inactive BACTROBAN 2 % CREAM apply to ear and nose twice daily BACTROBAN 2 % CREAM 476781 MUPIROCIN CALCIUM Inactive CYCLOBENZAPRINE HCL 10 MG TABS 1/2 tablet by mouth every 8 hours as needed for muscle spasms CYCLOBENZAPRINE HCL 10 MG TABS 049599 CYCLOBENZAPRINE HCL Inactive NAVANE 10 MG CAPS 1/2 tablet twice a day NAVANE 10 MG CAPS THIOTHIXENE Inactive DOXEPIN HCL 10 MG CAPS Take 1 tablet by mouth daily DOXEPIN HCL 10 MG CAPS 7685747 DOXEPIN HCL Inactive HYDROCODONE-ACETAMINOPHEN 7.5-325 MG TABS 1 four times a day as needed for pain HYDROCODONE-ACETAMINOPHEN 7.5-325 MG TABS 248306 HYDROCODONE-ACETAMINOPHEN Inactive NIACIN CR 500 MG CR-TABS 2 qHS NIACIN CR 500 MG CR- TABS NIACIN Inactive ORPHENADRINE CITRATE ER 100 MG [id number] 1 every 12 hr. as needed ORPHENADRINE CITRATE ER 100 MG [id number]-IYR ORPHENADRINE CITRATE Inactive ACETAMINOPHEN 500 MG TABS 2 Q 6 hr. PRN ACETAMINOPHEN 500 MG TABS 304737 ACETAMINOPHEN Inactive SAPHRIS 5 MG SUBL by mouth twice a day SAPHRIS 5 MG SUBL ASENAPINE MALEATE Inactive NIACIN ER 500 MG CR-TABS 4 qHS (for triglycerides) NIACIN ER 500 MG CR-TABS NIACIN Inactive IBUPROFEN 200 MG TABS 1 Q 6 hr. PRN IBUPROFEN 200 MG TABS 621803 IBUPROFEN Inactive FLUTICASONE PROPIONATE 50 MCG/ACT SUSP 2 sprays each nostril qDay x 30 days FLUTICASONE PROPIONATE 50 MCG/ACT SUSP 984275 FLUTICASONE PROPIONATE Inactive EQL TRUETEST TEST STRP Test blood sugar TID EQL TRUETEST TEST STRP GLUCOSE BLOOD Inactive TERESE CONTOUR TEST STRP monitor blood sugars 3x/day TERESE CONTOUR TEST STRP GLUCOSE BLOOD Inactive DETROL LA 4 MG [id number] Take 1 tablet by mouth daily DETROL LA 4 MG [id number]-AKA TOLTERODINE TARTRATE Inactive ZYPREXA 7.5 MG TABS 1 at HS ZYPREXA 7.5 MG TABS 283413 OLANZAPINE Inactive THIOTHIXENE 5 MG CAPS by mouth twice a day THIOTHIXENE 5 MG CAPS 073481 THIOTHIXENE Inactive UROXATRAL 10 MG VO37G-IRH Take 1 tablet by mouth daily UROXATRAL 10 MG ED06P-TQH ALFUZOSIN HCL Inactive CEFDINIR 300 MG CAPS by mouth twice a day CEFDINIR 300 MG CAPS 819589 CEFDINIR Inactive AZITHROMYCIN 500 MG SOLR 1 po q day AZITHROMYCIN 500 MG SOLR 665147 AZITHROMYCIN Inactive AMOXICILLIN 500 MG CAPS 2 po BID x 10 days AMOXICILLIN 500 MG CAPS 277998 AMOXICILLIN Inactive Immunizations Vaccine Administration Date Value [...] Fluvirin, Fluarix, Agriflu(>=18 yo)) Fluzone (>3 yrs.) [[id number]] Influenza, seasonal, injectable pneumococcal immunization administered Pneumovax [...] HGBA1C - Chemistry sodium, serum 130 mmol/L 014-240 6897/06/09 potassium, serum 4.0 mmol/L 3.5-5.2 chloride, serum [...] 6.0 mg/dL 2.6-7.2 sodium, serum 130 mmol/L 448-218 4768/05/01 potassium, serum 5.2 mmol/L 3.5-5.2 chloride, serum [...] 0.40 mg/dL 0.00-1.00 cholesterol, serum 151 mg/dL 612-690 0603/05/01 triglyceride, serum, fasting 356 mg/dL 30-200 HDL [...] HGBA1C - Chemistry sodium, serum 126 mmol/L 714-639 9935/02/26 potassium, serum 4.8 mmol/L 3.5-5.2 chloride, serum [...] mg/dL Encounters Code Encounter Date Provider Facility CPT-52848 Level 3 Est. Patient 19:17:33 CDT Alina Castaneda MD PhD [facility] CPT-19876 Level 3 Est. Patient 13:19:10 [facility] CPT-53713 Level 3 Est. Patient 08:20:05 CDT Alina Castaneda MD PhD [facility] CPT-29091 Level 3 Est. Patient 15:17:18 CDT Alina Castaneda MD PhD [facility] CPT-26145 Level 3 Est. Patient 14:25:36 PHYSICAL THERAPY MANAGER Marvel Charles [facility] CPT-53151 Level 3 Est. Patient 10:09:15 [facility] THERAPY [facility] CPT-38514 Level 3 Est. Patient 21:28:43 CDT Alina Castaneda MD PhD [facility]-11725 Level 3 Est. Patient 15:20:11 [facility] CPT-04843 Level 4 Est. Patient 19:08:12 CDT Alina Castaneda MD [facility]-50835 Level 3 Est. Patient 15:06:39 CDT Marvel Charles [facility]-20176 Level 4 Est. Patient 17:48:15 CDT Alina Castaneda MD [facility]-88102 Level 3 Est. Patient 14:53:49 CDT Alina Castaneda MD [facility]-06004 Level 3 Est. Patient 09:35:16 CDT Alina Castaneda MD [facility]-97417 Level 3 Est. Patient 12:23:22 CDT Alina Castaneda MD [facility]-12612 Level 3 Est. Patient 16:19:15 CDT Alina Castaneda MD [facility]-85097 Level 3 Est. Patient 21:39:56 PHYSICAL THERAPY MANAGER Alina Castaneda MD [facility]-12951 Level 4 Est. Patient 14:12:56 PHYSICAL THERAPY MANAGER Alina Castaneda MD [facility]-32935 Level 2 Est. Patient 15:34:57 PHYSICAL THERAPY MANAGER Alina Castaneda MD [facility]-56116 Level 3 Est. Patient 12:17:04 PHYSICAL THERAPY MANAGER Alina Castaneda MD [facility]-01062 Level 3 Est. Patient 09:18:18 PHYSICAL THERAPY MANAGER Marvel Charles [facility]-79500 Level 2 Est. Patient 21:50:24 CDT Alina Castaneda MD [facility]-00448 Level 3 Est. Patient 09:17:28 CDT Marvel Charles [facility]-95532 Level 4 Est. Patient 18:54:02 CDT Alina Castaneda MD [facility] CPT-35628 Level 3 Est. Patient 10:47:10 CDT Alina Castaneda MD [facility]-78561 Level 3 Est. Patient 09:22:20 [facility]T [facility] CPT-94545 Level 3 Est. Patient 16:39:43 CDT [facility] Araceli [facility] CPT-49563 Level 3 Est. Patient 16:05:16 CDT Alina Castaneda MD [facility]-37944 Level 3 Est. Patient 00:29:15 CDT Alina Castaneda MD [facility]-46103 Level 3 Est. Patient 10:49:22 PHYSICAL THERAPY MANAGER [facility] [facility] CPT-77730 Level 3 Est. Patient 21:30:19 PHYSICAL THERAPY MANAGER Alina Castaneda MD [facility] CPT-39646 Level 4 Est. Patient 17:04:11 PHYSICAL THERAPY MANAGER [facility] Level 3 Est. Patient 15:34:11 PHYSICAL THERAPY MANAGER Marvel Araceli [facility] CPT-22261 Level 2 Est. Patient 12:51:58 PHYSICAL THERAPY MANAGER Alina Castaneda MD PhD [facility] CPT-49386 Level 3 Est. Patient 13:20:01 PHYSICAL THERAPY MANAGER Alina Castaneda MD [facility] CPT-18712 Level 3 Est. Patient 09:23:35 CDT Alina Castaneda MD [facility] Procedures Code Procedure Name Date Entry Date Standard Description CPT-76920 Administration single or combination vaccine inc oral 11 :49:51 CDT CPT-20305 Pneumovax 11:49:51 CDT CPT-21188 Ribs unilateral 2V 12:37:22 PHYSICAL THERAPY MANAGER CPT-21922 Chest 2V Frontal and Lat 17:15:26 CDT CPT-38503 Abx/Therapy Injection 18:54:02 CDT CPT-J0696 Rocephin 1000 mg (Ceftriaxone) 16:00:32 CDT CPT-63787 Chest 2V Frontal and Lat 15:26:45 CDT CPT-72821 Chest 2V Frontal and Lat 10:23:27 CDT CPT-05494 Venipuncture Draw Fee 10:11:00 CDT CPT-85971 Administration single or combination vaccine inc oral 11 :56:38 CDT CPT-98612 Influenza split virus > age 3 11:56:38 CDT CPT-13389 Venipuncture Draw Fee 08:49:54 PHYSICAL THERAPY MANAGER CPT-72489 EKG Trac and Interp 17:54:19 PHYSICAL THERAPY MANAGER
--- OUTSIDE RECORDS SUMMARY | 2018-07-02 20:46 | XMS REPORT | Clinical Summary ---
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 Alina Castaneda MD PhD Recurrent isolated sleep paralysis SPECIAL SCREENING FOR MALIGNANT NEOPLASM OF PROSTATE V76.44 Resolved Alina Castaneda MD PhD Screening for malignant neoplasms of prostate Hypoglycemia 251.2 Resolved Alina Castaneda MD PhD Hypoglycemia, unspecified Diabetes mellitus, type II 250.00 Active Zaineh Bertrandari TOLL LINE INSPECTOR Diabetes mellitus without mention of complication, [...] RIGHT SIDED ICD-786.50 Roro Castaneda MD PhD DIABETES, TYPE 2 [...] 5 days, for cold sore outbreak ACYCLOVIR 52949571593 Active Alina Castaneda MD PhD Active PENICILLIN V POTASSIUM 500 MG TABS 1 pill by mouth three times daily PENICILLIN V POTASSIUM 58222855348 Active Alina Castaneda MD PhD Active MORPHINE SULFATE 30 MG TABS 1 pill by mouth nightly, for pain MORPHINE SULFATE 50225833544 Active Alina Castaneda MD PhD Active LATUDA 80 MG TABS 1 tab by mouth every evening LURASIDONE HCL 90174317540 Active Alina Castaneda MD PhD Active UROXATRAL 10 MG [id number] Take 1 tablet by mouth daily ALFUZOSIN HCL 64195901323 No Longer Active Alina Castaneda MD PhD Active THIOTHIXENE 5 MG CAPS by mouth twice a day THIOTHIXENE 17416940136 No Longer Active Alian Castaneda MD PhD Active ZYPREXA 7.5 MG TABS 1 at HS OLANZAPINE 69348819897 No Longer Active Alina Castaneda MD PhD Active HUMALOG 100 UNIT/ML SOLN Take 20 units with breakfast, 10u with lunch and suppetr. INSULIN LISPRO (HUMAN) 86225717931 Active Marvel Charles TOLL LINE INSPECTOR Active LEVEMIR 100 UNIT/ML SOLN Take 70 u at 7-8pm INSULIN DETEMIR 26001669542 Active Maliheh Ziglari TOLL LINE INSPECTOR Active BD INSULIN SYRINGE 28G X 1/2" 1 ML MISC 1 four times per day INSULIN SYRINGE-NEEDLE U-100 92918764632 Active Brooksnivia Mackenzieglari TOLL LINE INSPECTOR Active CYCLOBENZAPRINE HCL 10 MG TABS 1 tablet by mouth three times daily, scheduled CYCLOBENZAPRINE HCL 22231657812 Active Alina Castaneda MD PhD Active TOLTERODINE TARTRATE 2 MG TABS 1 pill twice daily, for bladder TOLTERODINE TARTRATE 71461958150 Active Alina Castaneda MD PhD Active DETROL LA 4 MG [id number] Take 1 tablet by mouth daily TOLTERODINE TARTRATE 60559449674 No Longer Active Alina Castaneda MD PhD Active HYDROCODONE-ACETAMINOPHEN 5-325 MG TABS 2 tabs by mouth three times daily as needed for pain HYDROCODONE-ACETAMINOPHEN 04216933493 Active Rhett Luther DO Active TERESE CONTOUR TEST STRP monitor blood sugars 3x/day GLUCOSE BLOOD 12575520924 No Longer Active Alina Castaneda MD PhD Active EQL TRUETEST TEST STRP Test blood sugar TID GLUCOSE BLOOD 40037456046 No Longer Active Alina Castaneda MD PhD Active FLUTICASONE PROPIONATE 50 MCG/ACT SUSP 2 sprays each nostril qDay x 30 days FLUTICASONE PROPIONATE 28949124650 No Longer Active Alina Castaneda MD PhD Active IBUPROFEN 200 MG TABS 1 Q 6 hr. PRN IBUPROFEN 35822782986 No Longer Active Alina Castaneda MD PhD Active NIACIN ER 500 MG CR-TABS 4 qHS (for triglycerides) NIACIN 63335956615 No Longer Active Alina Castaneda MD PhD Active TRUETEST TEST STRP check sugars 4x/day GLUCOSE BLOOD 10291599479 Active Marvel Mackenzieglari TOLL LINE INSPECTOR Active ALFUZOSIN HCL ER 10 MG [id number] 1 tablet daily ALFUZOSIN HCL 83311618816 Active Vanessa Hickey MD Active CLONAZEPAM 1 MG TABS 1 pill by mouth three times daily CLONAZEPAM 23863933749 Active Alina Castaneda MD PhD Active LOVAZA 1 GM CAPS 4 daily (for triglycerides) OVEIW-3-LCDU ETHYL ESTERS 92731444667 Active Alina Castaneda MD PhD Active SAPHRIS 5 MG SUBL by mouth twice a day ASENAPINE MALEATE 38255054607 No Longer Active Marvel MARROQUIN Active ACETAMINOPHEN 500 MG TABS 2 Q 6 hr. PRN ACETAMINOPHEN 75882458596 No Longer Active Marvel MENDOZAP Active VERAPAMIL HCL ER 120 MG [id number] 1 pill by mouth twice a day, for headache prevention/control VERAPAMIL HCL 20405155530 Active Alina Castaneda MD PhD Active ORPHENADRINE CITRATE ER 100 MG [id number] 1 every 12 hr. as needed ORPHENADRINE CITRATE 93181184465 No Longer Active Alina Castaneda MD PhD Active NIACIN CR 500 MG CR-TABS 2 qHS NIACIN 37373821524 No Longer Active Alina Castaneda MD PhD Active AMOXICILLIN 500 MG CAPS 2 po BID x 10 days AMOXICILLIN 38219492525 No Longer Active Alina Castaneda MD PhD Active HYDROCODONE-ACETAMINOPHEN 7.5-325 MG TABS 1 four times a day as needed for pain HYDROCODONE-ACETAMINOPHEN 02105405838 No Longer Active Alina Castaneda MD PhD Active METFORMIN HCL ER 500 MG [id number]-NVO Take three tablets by mouth everyday METFORMIN HCL 08547000411 Active Marvel MENDOZAP Active DOXEPIN HCL 10 MG CAPS Take 1 tablet by mouth daily DOXEPIN HCL 97005028572 No Longer Active Salina ROJAS Active NAVANE 10 MG CAPS 1/2 tablet twice a day THIOTHIXENE No Longer Active Salina ROBBINS Active CYCLOBENZAPRINE HCL 10 MG TABS 1/2 tablet by mouth every 8 hours as needed for muscle spasms CYCLOBENZAPRINE HCL 62334473506 No Longer Active Alina Castaneda MD PhD Active BACTROBAN 2 % CREAM apply to ear and nose twice daily MUPIROCIN CALCIUM 87366833530 No Longer Active Alina Castaneda MD PhD Active HYDROCODONE-ACETAMINOPHEN 5-325 MG TABS take one tablet by mouth every four hours as needed for pain HYDROCODONE-ACETAMINOPHEN 06552145731 No Longer Active Alnia Castaneda MD PhD Active ZOLPIDEM TARTRATE 10 MG TABS take at bedtime ZOLPIDEM TARTRATE 57144159749 Active Alina Castaneda MD PhD Active ZYPREXA 5 MG TABS take one tablet by mouth every evening OLANZAPINE 90300443192 No Longer Active Alina Castaneda MD PhD Active ALBUTEROL SULFATE 0.083 % NEBU SOLN one vial per nebulizer TID and PRN cough/ soa ALBUTEROL SULFATE 29786896800 No Longer Active Alina Castaneda MD PhD Active GUAIFENESIN 600 MG IG44M-MHU 1 tablet by mouth twice daily if needed for cough GUAIFENESIN 71853735997 No Longer Active Marvel Charles TOLL LINE INSPECTOR Active AZITHROMYCIN 500 MG SOLR 1 po q day AZITHROMYCIN 76791189095 No Longer Active Alina Castaneda MD PhD Active METOPROLOL SUCCINATE 100 MG BN39M-XZZ 1 by mouth daily for blood pressure METOPROLOL SUCCINATE 38158893964 Active Alina Castaneda MD PhD Active PROMETHAZINE-CODEINE 6.25-10 MG/5ML SYRP 1 tsp po q 6 hours prn cough PROMETHAZINE-CODEINE 93793307538 No Longer Active Alina Castaneda MD PhD Active CEFDINIR 300 MG CAPS by mouth twice a day CEFDINIR 95069859615 No Longer Active Alina Castaneda MD PhD Active METFORMIN HCL 500 MG [id number]-QZI Take 3 tablets by mouth everyday METFORMIN HCL 51668233590 No Longer Active Alina Casatneda MD PhD Active LEVEMIR 100 UNIT/ML SOLN 90 units SQ qHS INSULIN DETEMIR 06505672310 No Longer Active Marvel MARROQUIN Active TOPROL XL 100 MG [id number] 1 @ HS METOPROLOL SUCCINATE 96200568413 No Longer Active Marvel MARROQUIN Active ALLOPURINOL 300 MG TABS Take one by mouth daily ALLOPURINOL 51433095387 Active Alina Castaneda MD PhD Active ZYPREXA 10 MG TABS Take one by mouth daily OLANZAPINE 30179320606 No Longer Active Alina Castaneda MD PhD Active NOVOLOG 100 UNIT/ML SOLN 40 units with every meal INSULIN ASPART 69258801726 No Longer Active Alina Castaneda MD PhD Active VERAPAMIL HCL CR 120 MG TAB CR 1 qPM VERAPAMIL HCL 08321489338 No Longer Active Salina ROJAS Active ZYPREXA 15 MG TABS Take 1 tablet by mouth daily OLANZAPINE 11074627113 No Longer Active Marvel MARROQUIN Active LISINOPRIL 20 MG TABS 1 BID LISINOPRIL 66133077458 Active Alina Castaneda MD PhD Active ALBUTEROL SULFATE (2.5 MG/3ML) 0.083% NEBU 1 neb tid and prn cough ALBUTEROL SULFATE 48720916955 No Longer Active Alina Castaneda MD PhD Active FLUVOXAMINE MALEATE 100 MG TABS Take one (1) tablet by mouth am, 1/2 at noon, 1 pm FLUVOXAMINE MALEATE 33434262921 Active Alina Castaneda MD PhD Active TRAVATAN Z 0.004 % SOLN 1 gtt each eye daily TRAVOPROST 08468558391 Active CRYSTAL Suarez Active LANTUS 100 UNIT/ML SOLN 60 units sq q hs INSULIN GLARGINE 97542647872 No Longer Active CRYSTAL Suarez Active ALBUTEROL SULFATE (2.5 MG/3ML) 0.083% NEBU 1 neb tid and prn cough ALBUTEROL SULFATE (2.5 MG/3ML) 0.083% NEBU 579352 ALBUTEROL SULFATE Inactive ZYPREXA 15 MG TABS Take 1 tablet by mouth daily ZYPREXA 15 MG TABS 383411 OLANZAPINE Inactive VERAPAMIL HCL CR 120 MG TAB CR 1 qPM VERAPAMIL HCL CR 120 MG TAB CR VERAPAMIL HCL Inactive ZYPREXA 10 MG TABS Take one by mouth daily ZYPREXA 10 MG TABS 013156 OLANZAPINE Inactive TOPROL XL 100 MG [id number] 1 @ HS TOPROL XL 100 MG [id number] METOPROLOL SUCCINATE Inactive LEVEMIR 100 UNIT/ML SOLN 90 units SQ qHS LEVEMIR 100 UNIT/ML SOLN INSULIN DETEMIR Inactive PROMETHAZINE-CODEINE 6.25-10 MG/5ML SYRP 1 tsp po q 6 hours prn cough PROMETHAZINE-CODEINE 6.25-10 MG/5ML SYRP 385653 PROMETHAZINE- CODEINE Inactive GUAIFENESIN 600 MG [id number]-KWW 1 tablet by mouth twice daily if needed for cough GUAIFENESIN 600 MG [id number] GUAIFENESIN Inactive ALBUTEROL SULFATE 0.083 % NEBU SOLN one vial per nebulizer TID and PRN cough/ soa ALBUTEROL SULFATE 0.083 % NEBU SOLN 739706 ALBUTEROL SULFATE Inactive ZYPREXA 5 MG TABS take one tablet by mouth every evening ZYPREXA 5 MG TABS 344134 OLANZAPINE Inactive HYDROCODONE-ACETAMINOPHEN 5-325 MG TABS take one tablet by mouth every four hours as needed for pain HYDROCODONE-ACETAMINOPHEN 5-325 MG TABS 413436 HYDROCODONE-ACETAMINOPHEN Inactive BACTROBAN 2 % CREAM apply to ear and nose twice daily BACTROBAN 2 % CREAM 157093 MUPIROCIN CALCIUM Inactive CYCLOBENZAPRINE HCL 10 MG TABS 1/2 tablet by mouth every 8 hours as needed for muscle spasms CYCLOBENZAPRINE HCL 10 MG TABS 872200 CYCLOBENZAPRINE HCL Inactive NAVANE 10 MG CAPS 1/2 tablet twice a day NAVANE 10 MG CAPS THIOTHIXENE Inactive DOXEPIN HCL 10 MG CAPS Take 1 tablet by mouth daily DOXEPIN HCL 10 MG CAPS 1485191 DOXEPIN HCL Inactive HYDROCODONE-ACETAMINOPHEN 7.5-325 MG TABS 1 four times a day as needed for pain HYDROCODONE-ACETAMINOPHEN 7.5-325 MG TABS 526342 HYDROCODONE-ACETAMINOPHEN Inactive NIACIN CR 500 MG CR-TABS 2 qHS NIACIN CR 500 MG CR- TABS NIACIN Inactive ORPHENADRINE CITRATE ER 100 MG [id number] 1 every 12 hr. as needed ORPHENADRINE CITRATE ER 100 MG [id number] ORPHENADRINE CITRATE Inactive ACETAMINOPHEN 500 MG TABS 2 Q 6 hr. PRN ACETAMINOPHEN 500 MG TABS 346333 ACETAMINOPHEN Inactive SAPHRIS 5 MG SUBL by mouth twice a day SAPHRIS 5 MG SUBL ASENAPINE MALEATE Inactive NIACIN ER 500 MG CR-TABS 4 qHS (for triglycerides) NIACIN ER 500 MG CR-TABS NIACIN Inactive IBUPROFEN 200 MG TABS 1 Q 6 hr. PRN IBUPROFEN 200 MG TABS 275411 IBUPROFEN Inactive FLUTICASONE PROPIONATE 50 MCG/ACT SUSP 2 sprays each nostril qDay x 30 days FLUTICASONE PROPIONATE 50 MCG/ACT SUSP 884498 FLUTICASONE PROPIONATE Inactive EQL TRUETEST TEST STRP Test blood sugar TID EQL TRUETEST TEST STRP GLUCOSE BLOOD Inactive TERESE CONTOUR TEST STRP monitor blood sugars 3x/day TERESE CONTOUR TEST STRP GLUCOSE BLOOD Inactive DETROL LA 4 MG [id number] Take 1 tablet by mouth daily DETROL LA 4 MG [id number] TOLTERODINE TARTRATE Inactive ZYPREXA 7.5 MG TABS 1 at HS ZYPREXA 7.5 MG TABS 396478 OLANZAPINE Inactive THIOTHIXENE 5 MG CAPS by mouth twice a day THIOTHIXENE 5 MG CAPS 771335 THIOTHIXENE Inactive UROXATRAL 10 MG NZ53D-HKE Take 1 tablet by mouth daily UROXATRAL 10 MG [id number]-EKM ALFUZOSIN HCL Inactive CEFDINIR 300 MG CAPS by mouth twice a day CEFDINIR 300 MG CAPS 253993 CEFDINIR Inactive AZITHROMYCIN 500 MG SOLR 1 po q day AZITHROMYCIN 500 MG SOLR 864129 AZITHROMYCIN Inactive AMOXICILLIN 500 MG CAPS 2 po BID x 10 days AMOXICILLIN 500 MG CAPS 209879 AMOXICILLIN Inactive Immunizations Vaccine Administration Date Value [...] Fluvirin, Fluarix, Agriflu(>=18 yo)) Fluzone (>3 yrs.) [[id number]] Influenza, seasonal, injectable pneumococcal immunization administered Pneumovax [...] HGBA1C - Chemistry sodium, serum 130 mmol/L 802-156 7496/06/09 urea nitrogen, blood 14 mg/dL 7-18 creatinine, serum 1.30 mg/dL 0.60-1.30 hemoglobin A1C, blood, as % of total hemoglobin 6.0 % 4.3-6.0 potassium, serum 4.0 mmol/L 3.5-5.2 sodium, serum 131 mmol/L 506-886 9023/12/30 potassium, serum 5.0 mmol/L 3.5-5.2 chloride, serum 95 mmol/L 98-107 carbon dioxide, venous blood 26.7 mmol/L 21.0-32.0 blood glucose 112 mg/dL 65-110 calcium, serum 9.2 mg/dL 8.5-10.1 urea nitrogen, blood 12 mg/dL 7-18 creatinine, serum 1.10 mg/dL 0.60-1.30 hemoglobin A1C, blood, as % of total hemoglobin 5.8 % 4.3-6.0 chloride, serum 92 mmol/L 98-107 carbon dioxide, venous blood 22.1 mmol/L 21.0-32.0 blood glucose 60 mg/dL 65-110 calcium, serum 9.5 mg/dL 8.5-10.1 Lab Report: CBC, CMP, Lipid Panel, TSH, PSA, microalbumin, uric acid - Chemistry albumin/creatinine ratio, urine < 30 mg/g mg/g{creat} 0-29 uric acid, serum 6.0 mg/dL 2.6-7.2 sodium, serum 130 mmol/L 902-824 6544/05/01 potassium, serum 5.2 mmol/L 3.5-5.2 chloride, serum [...] 0.40 mg/dL 0.00-1.00 cholesterol, serum 151 mg/dL 432-726 0215/05/01 triglyceride, serum, fasting 356 mg/dL 30-200 HDL cholesterol, serum 19 mg/dL 32-96 LDL cholesterol, serum 61 mg/dL 0-130 TSH 2.22 m[iU]/mL 0.36-3.74 prostate specific antigen 0.11 ng/mL 0.00-4.00 Lab Report: CBC, CMP, Lipid Panel, TSH, PSA, microalbumin, uric acid - Hematology leukocyte count, blood 7.8 10^3/MM^3 10*3/mm3 4.6-10.2 mean corpuscular hemoglobin concentration, RBC 34.5 G/DL % 31.8- 35.4 red blood cell distribution width 15.0 % 11.6-14.8 platelet count 304 10^3/MM^3 10*3/mm3 891-191 6059/05/01 erythrocyte (RBC) count 5.07 10^6/MM^3 10*6/mm3 4.69-6.13 hemoglobin, blood 15.3 g/dL 13.5-17.5 hematocrit, blood 44.2 % 41.0-53.0 mean corpuscular volume, RBC 87 fL 80-97 mean corpuscular hemoglobin, RBC 30.1 pg 27.0-31.2 Lab Report: CBC, CMP, Lipid Panel, TSH, PSA, microalbumin, uric acid - Lab microalbumin, urine 10 0-19 Lab Report: Comp. Metabolic Panel - Chemistry sodium, serum 127 mmol/L 740-921 2064/10/27 potassium, serum 4.1 mmol/L 3.5-5.2 chloride, serum [...] Report: Comp. Metabolic Panel, BA1C - Chemistry potassium, serum 4.8 mmol/L 3.5-5.2 [...] mg/dL Encounters Code Encounter Date Provider Facility CPT-09079 Level 3 Est. Patient 19:52:[address]IO TECHNICIAN Alina Castaneda MD PhD [facility] CPT-23859 Level 3 Est. Patient 10:01:[address] [facility]NICIAN [facility] Level 3 Est. Patient 21:54:06 CDT Vanessa Hickey MD [facility] CPT-70198 Level 3 Est. Patient 08:54:46 CDT Alina Castaneda MD PhD [facility] CPT-30479 Level 3 Est. Patient 09:32:11 [facility] [place] CPT-43037 Level 3 Est. Patient 12:02:49 CDT Alina Castaneda MD PhD [facility] CPT-68553 Level 3 Est. Patient 19:17:33 CDT Alina Castaneda MD PhD [facility]-15374 Level 3 Est. Patient 13:19:10 CDT Brooksnivia Charles [facility] [place] CPT-10415 Level 3 Est. Patient 08:20:05 CDT Alina Castaneda MD [facility]-29845 Level 3 Est. Patient 15:17:18 CDT Alina Castaneda MD [facility]-69489 Level 3 Est. Patient 14:25:[address]IO TECHNICIAN Marvel Charles [facility] [place] CPT-70626 Level 3 Est. Patient 10:09:[address]IO TECHNICIAN Marvel [facility]-20825 Level 3 Est. Patient 21:28:43 CDT Alina Castaneda MD [facility]-88307 Level 3 Est. Patient 15:20:11 [facility]-[address] Level 4 Est. Patient 19:08:12 CDT Alina Castaneda MD [facility]-39412 Level 3 Est. Patient 15:06:39 CDT [facility] Level 4 Est. Patient 17:48:15 CDT Alina Castaneda MD [facility]-37678 Level 3 Est. Patient 14:53:49 CDT Alina Castaneda MD [facility]-01209 Level 3 Est. Patient 09:35:16 CDT Alina Castaneda MD [facility]-91071 Level 3 Est. Patient 12:23:22 CDT Alina Castaneda MD [facility]-42729 Level 3 Est. Patient 16:19:15 CDT Alina Castaneda MD [facility]-44415 Level 3 Est. Patient 21:39:[address]IO TECHNICIAN Alina Castaneda MD [facility]-83943 Level 4 Est. Patient 14:12:[address]IO TECHNICIAN Alina Castaneda MD [facility]-41435 Level 2 Est. Patient 15:34:[address]IO TECHNICIAN Alina Castaneda MD [facility] [place]9[address]30 Level 3 Est. Patient 12:17:[address]IO TECHNICIAN Alina Castaneda MD [facility] [place]35314 Level 3 Est. Patient 09:18:[address]IO TECHNICIAN Marvel [facility]-20718 Level 2 Est. Patient 21:50:24 CDT Alina Castaneda MD [facility] [place]88 Level 3 Est. Patient 09:17:28 CDT Marvel [facility]-87338 Level 4 Est. Patient 18:54:02 CDT Alina Castaneda MD [facility] [place]49380 Level 3 Est. Patient 10:47:10 CDT Alina Castaneda MD [facility] [place]68649 Level 3 Est. Patient 09:22:20 CDT Marvel Charles [facility]31083 Level 3 Est. Patient 16:39:43 CDT Marvel [facility]-44762 Level 3 Est. Patient 16:05:16 CDT Alina Castaneda MD [facility] [place]85143 Level 3 Est. Patient 00:29:15 CDT Alina Castaneda MD [facility] [place]23697 Level 3 Est. Patient 10:49:[address]IO TECHNICIAN Marvel Charles [facility]69868 Level 3 Est. Patient 21:30:[address]IO TECHNICIAN Alina Castaneda MD [facility] [place]9[address]99 Level 4 Est. Patient 17:04:[address]IO TECHNICIAN Maliheh Ziglari [facility] [place] CPT-91313 Level 3 Est. Patient 15:34:[address]IO TECHNICIAN Marvel Charles [facility] [place] CPT-70916 Level 2 Est. Patient 12:51:[address]IO TECHNICIAN Alina Castaneda MD PhD [facility] CPT-57814 Level 3 Est. Patient 13:20:[address]IO TECHNICIAN Alina Castaneda MD PhD [facility] CPT-76314 Level 3 Est. Patient 09:23:35 CDT Alina Castaneda MD PhD [facility] Procedures Code Procedure Name Date Entry Date Standard Description CPT-47480 Bladder Scan 21:54:06 CDT CPT-G0008 Administration of Influenza Virus Vaccine 13:05:26 CDT CPT-18639 Fluzone Quadrivalent Intramuscular Suspension 0.5 ML 13: 05:26 CDT CPT-50192 Administration single or combination vaccine inc oral 11 :49:51 CDT CPT-98196 Pneumovax 11:49:51 CDT CPT-18532 Ribs unilateral 2V 12:37:[address]IO TECHNICIAN CPT-53098 Chest 2V Frontal and Lat 17:15:26 CDT CPT-52852 Abx/Therapy Injection 18:54:02 CDT CPT-J0696 Rocephin 1000 mg (Ceftriaxone) 16:00:32 CDT CPT-00105 Chest 2V Frontal and Lat 15:26:45 CDT CPT-80917 Chest 2V Frontal and Lat 10:23:27 CDT CPT-54834 Venipuncture Draw Fee 10:11:00 CDT CPT-72306 Administration single or combination vaccine inc oral 11 :56:38 CDT CPT-85428 Influenza split virus > age 3 11:56:38 CDT CPT-49117 Venipuncture Draw Fee 08:49:[address] RADIO TECHNICIAN CPT-16381 EKG Trac and Interp 17:54:[address] RADIO TECHNICIAN
--- OUTSIDE RECORDS SUMMARY | 2018-07-02 20:47 | XMS REPORT | Clinical Summary ---
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 Active Alina Castaneda MD PhD Recurrent isolated sleep paralysis SPECIAL SCREENING FOR MALIGNANT NEOPLASM OF PROSTATE V76.44 Resolved Alina Castaneda MD PhD Screening for malignant neoplasms of prostate Hypoglycemia 251.2 Resolved Alina Castaneda MD PhD Hypoglycemia, unspecified Diabetes mellitus, type II 250.00 Active Mallashondaeh Bertrandari ACID WASH OPERATOR Diabetes mellitus without mention of complication, [...] 5 days, for cold sore outbreak ACYCLOVIR 95786376749 No Longer Active Alina Castaneda MD PhD Active PENICILLIN V POTASSIUM 500 MG TABS 1 pill by mouth three times daily PENICILLIN V POTASSIUM 07464952207 No Longer Active Alina Castaneda MD PhD Active MORPHINE SULFATE 30 MG TABS 1 pill by mouth nightly, for pain MORPHINE SULFATE 99833994461 Active Alina Castaneda MD PhD Active LATUDA 80 MG TABS 1 tab by mouth every evening LURASIDONE HCL 17896617056 Active Alina Castaneda MD PhD Active UROXATRAL 10 MG [id number] Take 1 tablet by mouth daily ALFUZOSIN HCL 03624992996 No Longer Active Alina Castaneda MD PhD Active THIOTHIXENE 5 MG CAPS by mouth twice a day THIOTHIXENE 39899250471 No Longer Active Alina Castaneda MD PhD Active ZYPREXA 7.5 MG TABS 1 at HS OLANZAPINE 37460011369 No Longer Active Alina Castaneda MD PhD Active HUMALOG 100 UNIT/ML SOLN Take 20 units with breakfast, 10u with lunch and suppetr. INSULIN LISPRO (HUMAN) 59136650285 Active Marvel MARROQUIN Active LEVEMIR 100 UNIT/ML SOLN Take 70 u at 7-8pm INSULIN DETEMIR 73684884676 Active Marvel Mackenzieglari ACID WASH OPERATOR Active BD INSULIN SYRINGE 28G X 1/2" 1 ML MISC 1 four times per day INSULIN SYRINGE-NEEDLE U-100 06658088384 Active Marvel Mackenzieglari ACID WASH OPERATOR Active CYCLOBENZAPRINE HCL 10 MG TABS 1 tablet by mouth three times daily, scheduled CYCLOBENZAPRINE HCL 39942776969 Active Alina Castaneda MD PhD Active TOLTERODINE TARTRATE 2 MG TABS 1 pill twice daily, for bladder TOLTERODINE TARTRATE 79637843675 Active Alina Castaneda MD PhD Active DETROL LA 4 MG [id number] Take 1 tablet by mouth daily TOLTERODINE TARTRATE 59714913042 No Longer Active Alina Castaneda MD PhD Active HYDROCODONE-ACETAMINOPHEN 5-325 MG TABS 2 tabs by mouth three times daily as needed for pain HYDROCODONE-ACETAMINOPHEN 68397305812 Active Rhett Luther DO Active TERESE CONTOUR TEST STRP monitor blood sugars 3x/day GLUCOSE BLOOD 73216975001 No Longer Active Alina Castaneda MD PhD Active EQL TRUETEST TEST STRP Test blood sugar TID GLUCOSE BLOOD 30320601228 No Longer Active Alina Castaneda MD PhD Active FLUTICASONE PROPIONATE 50 MCG/ACT SUSP 2 sprays each nostril qDay x 30 days FLUTICASONE PROPIONATE 63706260368 No Longer Active Alina Castaneda MD PhD Active IBUPROFEN 200 MG TABS 1 Q 6 hr. PRN IBUPROFEN 83584534126 No Longer Active Alina Castaneda MD PhD Active NIACIN ER 500 MG CR-TABS 4 qHS (for triglycerides) NIACIN 68327319469 No Longer Active Alina Castaneda MD PhD Active TRUETEST TEST STRP check sugars 4x/day GLUCOSE BLOOD 76136499560 Active Marvel MENDOZAP Active ALFUZOSIN HCL ER 10 MG [id number] 1 tablet daily ALFUZOSIN HCL 31751410959 Active Vanessa Hickey MD Active CLONAZEPAM 1 MG TABS 1 pill by mouth three times daily CLONAZEPAM 22086329205 Active Alina Castaneda MD PhD Active LOVAZA 1 GM CAPS 4 daily (for triglycerides) QZHYY-4-MHBY ETHYL ESTERS 29429440174 Active Alina Castaneda MD PhD Active SAPHRIS 5 MG SUBL by mouth twice a day ASENAPINE MALEATE 94573760718 No Longer Active Marvel MARROQUIN Active ACETAMINOPHEN 500 MG TABS 2 Q 6 hr. PRN ACETAMINOPHEN 13440225664 No Longer Active Marvel MARROQUIN Active VERAPAMIL HCL ER 120 MG [id number]-[id number] 1 pill by mouth twice a day, for headache prevention/control VERAPAMIL HCL 61715481361 Active Alina Castaneda MD PhD Active ORPHENADRINE CITRATE ER 100 MG [id number]-FWG 1 every 12 hr. as needed ORPHENADRINE CITRATE 74223193084 No Longer Active Alina Castaneda MD PhD Active NIACIN CR 500 MG CR-TABS 2 qHS NIACIN 45471598262 No Longer Active Alina Castaneda MD PhD Active AMOXICILLIN 500 MG CAPS 2 po BID x 10 days AMOXICILLIN 04573080819 No Longer Active Alina Castaneda MD PhD Active HYDROCODONE-ACETAMINOPHEN 7.5-325 MG TABS 1 four times a day as needed for pain HYDROCODONE-ACETAMINOPHEN 76942177400 No Longer Active Alina Castaneda MD PhD Active METFORMIN HCL ER 500 MG PR43K-BGK Take three tablets by mouth everyday METFORMIN HCL 43638582858 Active Marvel MARROQUIN Active DOXEPIN HCL 10 MG CAPS Take 1 tablet by mouth daily DOXEPIN HCL 04473634811 No Longer Active Salina ROJAS Active NAVANE 10 MG CAPS 1/2 tablet twice a day THIOTHIXENE No Longer Active Salina ROJAS Active CYCLOBENZAPRINE HCL 10 MG TABS 1/2 tablet by mouth every 8 hours as needed for muscle spasms CYCLOBENZAPRINE HCL 97778214614 No Longer Active Alina Castaneda MD PhD Active BACTROBAN 2 % CREAM apply to ear and nose twice daily MUPIROCIN CALCIUM 40098972026 No Longer Active Alina Castaneda MD PhD Active HYDROCODONE-ACETAMINOPHEN 5-325 MG TABS take one tablet by mouth every four hours as needed for pain HYDROCODONE-ACETAMINOPHEN 84914090547 No Longer Active Alina Castaneda MD PhD Active ZOLPIDEM TARTRATE 10 MG TABS take at bedtime ZOLPIDEM TARTRATE 44074258076 Active Alina Castaneda MD PhD Active ZYPREXA 5 MG TABS take one tablet by mouth every evening OLANZAPINE 45647226405 No Longer Active Alina Castaneda MD PhD Active ALBUTEROL SULFATE 0.083 % NEBU SOLN one vial per nebulizer TID and PRN cough/ soa ALBUTEROL SULFATE 30546119404 No Longer Active Alina Castaneda MD PhD Active GUAIFENESIN 600 MG CT26U-NJM 1 tablet by mouth twice daily if needed for cough GUAIFENESIN 78982056990 No Longer Active Marvel MENDOZAP Active AZITHROMYCIN 500 MG SOLR 1 po q day AZITHROMYCIN 69175522528 No Longer Active Alina Castaneda MD PhD Active METOPROLOL SUCCINATE 100 MG [id number] 1 by mouth daily for blood pressure METOPROLOL SUCCINATE 84310332605 Active Alina Castaneda MD PhD Active PROMETHAZINE-CODEINE 6.25-10 MG/5ML SYRP 1 tsp po q 6 hours prn cough PROMETHAZINE-CODEINE 62055469811 No Longer Active Alina Castaneda MD PhD Active CEFDINIR 300 MG CAPS by mouth twice a day CEFDINIR 59317636618 No Longer Active Alina Castaneda MD PhD Active METFORMIN HCL 500 MG [id number]-BZN Take 3 tablets by mouth everyday METFORMIN HCL 33541101798 No Longer Active Alina Castaneda MD PhD Active LEVEMIR 100 UNIT/ML SOLN 90 units SQ qHS INSULIN DETEMIR 18643882118 No Longer Active Marvel MARROQUIN Active TOPROL XL 100 MG [id number]-UGZ 1 @ HS METOPROLOL SUCCINATE 63089737642 No Longer Active Marvel MARROQUIN Active ALLOPURINOL 300 MG TABS Take one by mouth daily ALLOPURINOL 59757561994 Active Alina Castaneda MD PhD Active ZYPREXA 10 MG TABS Take one by mouth daily OLANZAPINE 67494565896 No Longer Active Alina Castaneda MD PhD Active NOVOLOG 100 UNIT/ML SOLN 40 units with every meal INSULIN ASPART 81816306825 No Longer Active Alina Castaneda MD PhD Active VERAPAMIL HCL CR 120 MG TAB CR 1 qPM VERAPAMIL HCL 10960061441 No Longer Active Salina ROJAS Active ZYPREXA 15 MG TABS Take 1 tablet by mouth daily OLANZAPINE 09029587405 No Longer Active Marvel MARROQUIN Active LISINOPRIL 20 MG TABS 1 BID LISINOPRIL 28211365345 Active Alina Castaneda MD PhD Active ALBUTEROL SULFATE (2.5 MG/3ML) 0.083% NEBU 1 neb tid and prn cough ALBUTEROL SULFATE 59015266610 No Longer Active Alina Castaneda MD PhD Active FLUVOXAMINE MALEATE 100 MG TABS Take one (1) tablet by mouth am, 1/2 at noon, 1 pm FLUVOXAMINE MALEATE 34671892547 Active Alina Castaneda MD PhD Active TRAVATAN Z 0.004 % SOLN 1 gtt each eye daily TRAVOPROST 20186337209 Active CRYSTAL Suarez Active LANTUS 100 UNIT/ML SOLN 60 units sq q hs INSULIN GLARGINE 59719878324 No Longer Active CRYSTAL Suarez Active ALBUTEROL SULFATE (2.5 MG/3ML) 0.083% NEBU 1 neb tid and prn cough ALBUTEROL SULFATE (2.5 MG/3ML) 0.083% NEBU 320328 ALBUTEROL SULFATE Inactive ZYPREXA 15 MG TABS Take 1 tablet by mouth daily ZYPREXA 15 MG TABS 022787 OLANZAPINE Inactive VERAPAMIL HCL CR 120 MG TAB CR 1 qPM VERAPAMIL HCL CR 120 MG TAB CR VERAPAMIL HCL Inactive ZYPREXA 10 MG TABS Take one by mouth daily ZYPREXA 10 MG TABS 578796 OLANZAPINE Inactive TOPROL XL 100 MG [id number]-IPD 1 @ HS TOPROL XL 100 MG [id number]-JDO METOPROLOL SUCCINATE Inactive LEVEMIR 100 UNIT/ML SOLN 90 units SQ qHS LEVEMIR 100 UNIT/ML SOLN INSULIN DETEMIR Inactive PROMETHAZINE-CODEINE 6.25-10 MG/5ML SYRP 1 tsp po q 6 hours prn cough PROMETHAZINE-CODEINE 6.25-10 MG/5ML SYRP 095938 PROMETHAZINE- CODEINE Inactive GUAIFENESIN 600 MG AM37I-LWH 1 tablet by mouth twice daily if needed for cough GUAIFENESIN 600 MG [id number]-WJY GUAIFENESIN Inactive ALBUTEROL SULFATE 0.083 % NEBU SOLN one vial per nebulizer TID and PRN cough/ soa ALBUTEROL SULFATE 0.083 % NEBU SOLN 266568 ALBUTEROL SULFATE Inactive ZYPREXA 5 MG TABS take one tablet by mouth every evening ZYPREXA 5 MG TABS 247842 OLANZAPINE Inactive HYDROCODONE-ACETAMINOPHEN 5-325 MG TABS take one tablet by mouth every four hours as needed for pain HYDROCODONE-ACETAMINOPHEN 5-325 MG TABS 169583 HYDROCODONE-ACETAMINOPHEN Inactive BACTROBAN 2 % CREAM apply to ear and nose twice daily BACTROBAN 2 % CREAM 781638 MUPIROCIN CALCIUM Inactive CYCLOBENZAPRINE HCL 10 MG TABS 1/2 tablet by mouth every 8 hours as needed for muscle spasms CYCLOBENZAPRINE HCL 10 MG TABS 392366 CYCLOBENZAPRINE HCL Inactive NAVANE 10 MG CAPS 1/2 tablet twice a day NAVANE 10 MG CAPS THIOTHIXENE Inactive DOXEPIN HCL 10 MG CAPS Take 1 tablet by mouth daily DOXEPIN HCL 10 MG CAPS 2774996 DOXEPIN HCL Inactive HYDROCODONE-ACETAMINOPHEN 7.5-325 MG TABS 1 four times a day as needed for pain HYDROCODONE-ACETAMINOPHEN 7.5-325 MG TABS 137087 HYDROCODONE-ACETAMINOPHEN Inactive NIACIN CR 500 MG CR-TABS 2 qHS NIACIN CR 500 MG CR- TABS NIACIN Inactive ORPHENADRINE CITRATE ER 100 MG [id number] 1 every 12 hr. as needed ORPHENADRINE CITRATE ER 100 MG [id number]-WUH ORPHENADRINE CITRATE Inactive ACETAMINOPHEN 500 MG TABS 2 Q 6 hr. PRN ACETAMINOPHEN 500 MG TABS 356637 ACETAMINOPHEN Inactive SAPHRIS 5 MG SUBL by mouth twice a day SAPHRIS 5 MG SUBL ASENAPINE MALEATE Inactive NIACIN ER 500 MG CR-TABS 4 qHS (for triglycerides) NIACIN ER 500 MG CR-TABS NIACIN Inactive IBUPROFEN 200 MG TABS 1 Q 6 hr. PRN IBUPROFEN 200 MG TABS 774547 IBUPROFEN Inactive FLUTICASONE PROPIONATE 50 MCG/ACT SUSP 2 sprays each nostril qDay x 30 days FLUTICASONE PROPIONATE 50 MCG/ACT SUSP 957753 FLUTICASONE PROPIONATE Inactive EQL TRUETEST TEST STRP Test blood sugar TID EQL TRUETEST TEST STRP GLUCOSE BLOOD Inactive TERESE CONTOUR TEST STRP monitor blood sugars 3x/day TERESE CONTOUR TEST STRP GLUCOSE BLOOD Inactive DETROL LA 4 MG NJ01I-ERV Take 1 tablet by mouth daily DETROL LA 4 MG [id number] TOLTERODINE TARTRATE Inactive ZYPREXA 7.5 MG TABS 1 at HS ZYPREXA 7.5 MG TABS 823817 OLANZAPINE Inactive THIOTHIXENE 5 MG CAPS by mouth twice a day THIOTHIXENE 5 MG CAPS 766521 THIOTHIXENE Inactive UROXATRAL 10 MG TO96C-HTR Take 1 tablet by mouth daily UROXATRAL 10 MG [id number]-OSJ ALFUZOSIN HCL Inactive ACYCLOVIR 400 MG ORAL TABS 1 pill three times daily x 5 days, for cold sore outbreak ACYCLOVIR 400 MG ORAL TABS 253562 ACYCLOVIR Inactive CEFDINIR 300 MG CAPS by mouth twice a day CEFDINIR 300 MG CAPS 936935 CEFDINIR Inactive AZITHROMYCIN 500 MG SOLR 1 po q day AZITHROMYCIN 500 MG SOLR 286899 AZITHROMYCIN Inactive AMOXICILLIN 500 MG CAPS 2 po BID x 10 days AMOXICILLIN 500 MG CAPS 013028 AMOXICILLIN Inactive PENICILLIN V POTASSIUM 500 MG TABS 1 pill by mouth three times daily PENICILLIN V POTASSIUM 500 MG TABS 441462 PENICILLIN V POTASSIUM Inactive Immunizations Vaccine Administration [...] Fluvirin, Fluarix, Agriflu(>=18 yo)) Fluzone (>3 yrs.) [XIB085] Influenza, seasonal, injectable pneumococcal immunization administered Pneumovax [...] HGBA1C - Chemistry sodium, serum 130 mmol/L 989-045 8536/06/09 potassium, serum 4.0 mmol/L 3.5-5.2 chloride, serum 92 mmol/L 98-107 carbon dioxide, venous blood 22.1 mmol/L 21.0-32.0 blood glucose 60 mg/dL 65-110 calcium, serum 9.5 mg/dL 8.5-10.1 urea nitrogen, blood 14 mg/dL 7-18 creatinine, serum 1.30 mg/dL 0.60-1.30 hemoglobin A1C, blood, as % of total hemoglobin 6.0 % 4.3-6.0 sodium, serum 131 mmol/L 826-701 7954/12/30 potassium, serum 5.0 mmol/L 3.5-5.2 chloride, serum [...] 6.0 mg/dL 2.6-7.2 sodium, serum 130 mmol/L 728-508 3309/05/01 potassium, serum 5.2 mmol/L 3.5-5.2 chloride, serum [...] 0.40 mg/dL 0.00-1.00 cholesterol, serum 151 mg/dL 093-698 5214/05/01 triglyceride, serum, fasting 356 mg/dL 30-200 HDL [...] Panel - Chemistry sodium, serum 127 mmol/L 633-579 7348/10/27 potassium, serum 4.1 mmol/L 3.5-5.2 chloride, serum [...] HGBA1C - Chemistry sodium, serum 126 mmol/L 365-752 7599/02/26 potassium, serum 4.8 mmol/L 3.5-5.2 chloride, serum [...] mg/dL Encounters Code Encounter Date Provider Facility CPT-99522 Level 3 Est. Patient 14:36:26 STOCK CONTROL SUPERVISOR Marvel Araceli [facility]-10667 Level 3 Est. Patient 13:34:47 STOCK CONTROL SUPERVISOR Alina Castaneda MD [facility]-03118 Level 3 Est. Patient 19:52:08 STOCK CONTROL SUPERVISOR Alina Castaneda MD [facility]98978 Level 3 Est. Patient 10:01:51 [facility]-50641 Level 3 Est. Patient 21:54:06 CDT Vanessa Hickey MD [facility]-88696 Level 3 Est. Patient 08:54:46 CDT Alina Castaneda MD [facility]-30916 Level 3 Est. Patient 09:32:11 [facility] Patient 12:02:49 CDT Alina Castaneda [facility]27875 Level 3 Est. Patient 19:17:33 CDT Alina Castaneda MD [facility]-24938 Level 3 Est. Patient 13:19:10 CDT Marvel Charles [facility]-64572 Level 3 Est. Patient 08:20:05 CDT Alina Castaneda MD [facility]-43867 Level 3 Est. Patient 15:17:18 CDT Alina Castaneda MD [facility]60401 Level 3 Est. Patient 14:25:36 STOCK CONTROL SUPERVISOR [facility]-71052 Level 3 Est. Patient 10:09:15 STOCK CONTROL SUPERVISOR Marvel Thurstonestela [facility]-73616 Level 3 Est. Patient 21:28:43 CDT Alina Castaneda MD [facility]-71715 Level 3 Est. Patient 15:20:11 [facility]-69090 Level 4 Est. Patient 19:08:12 CDT Alina Castaneda MD [facility]-05905 Level 3 Est. Patient 15:06:39 CDT Marvel Thurstonestela [facility]-47886 Level 4 Est. Patient 17:48:15 CDT Alina Castaneda MD [facility]-24671 Level 3 Est. Patient 14:53:49 CDT Alina Castaneda MD [facility]-80870 Level 3 Est. Patient 09:35:16 CDT Alina Castaneda MD [facility]-78787 Level 3 Est. Patient 12:23:22 CDT Alina Castaneda MD [facility]-17612 Level 3 Est. Patient 16:19:15 CDT Alina Castaneda MD [facility]-19819 Level 3 Est. Patient 21:39:56 STOCK CONTROL SUPERVISOR Alina Castaneda MD [facility]-76742 Level 4 Est. Patient 14:12:56 STOCK CONTROL SUPERVISOR Alina Castaneda MD [facility]-67793 Level 2 Est. Patient 15:34:57 STOCK CONTROL SUPERVISOR Alina Castaneda MD [facility]-81100 Level 3 Est. Patient 12:17:04 STOCK CONTROL SUPERVISOR Alina Castaneda MD [facility]-90926 Level 3 Est. Patient 09:18:18 STOCK CONTROL SUPERVISOR Brooksjohn [facility]-06510 Level 2 Est. Patient 21:50:24 CDT Alina Castaneda MD [facility]-34390 Level 3 Est. Patient 09:17:28 CDT Marvel [facility]-35510 Level 4 Est. Patient 18:54:02 CDT Alina Castaneda MD [facility]24315 Level 3 Est. Patient 10:47:10 CDT Alina Castaneda MD [facility]79556 Level 3 Est. Patient 09:22:20 CDT Marvel [facility]-39591 Level 3 Est. Patient 16:39:43 CDT Marvel [facility]-53002 Level 3 Est. Patient 16:05:16 CDT Alina Castaneda MD [facility]-54882 Level 3 Est. Patient 00:29:15 CDT Alina Castaneda MD [facility]69594 Level 3 Est. Patient 10:49:22 STOCK CONTROL SUPERVISOR Marvel [facility]-29283 Level 3 Est. Patient 21:30:19 STOCK CONTROL SUPERVISOR Alina Castaneda MD [facility]-79583 Level 4 Est. Patient 17:04:11 STOCK CONTROL SUPERVISOR Marvel [facility]-06050 Level 3 Est. Patient 15:34:11 STOCK CONTROL SUPERVISOR Marvel Charles [facility]-71126 Level 2 Est. Patient 12:51:58 STOCK CONTROL SUPERVISOR Alina Castaneda MD [facility]72887 Level 3 Est. Patient 13:20:01 STOCK CONTROL SUPERVISOR Alina Castaneda MD PhD [facility] CPT-48413 Level 3 Est. Patient 09:23:35 CDT Alina Castaneda MD PhD [facility] Procedures Code Procedure Name Date Entry Date Standard Description CPT-03686 Bladder Scan 21:54:06 CDT CPT-G0008 Administration of Influenza Virus Vaccine 13:05:26 CDT CPT-07847 Fluzone Quadrivalent Intramuscular Suspension 0.5 ML 13: 05:26 CDT CPT-74726 Administration single or combination vaccine inc oral 11 :49:51 CDT CPT-38537 Pneumovax 11:49:51 CDT CPT-87111 Ribs unilateral 2V 12:37:22 STOCK CONTROL SUPERVISOR CPT-78329 Chest 2V Frontal and Lat 17:15:26 CDT CPT-10378 Abx/Therapy Injection 18:54:02 CDT CPT-J0696 Rocephin 1000 mg (Ceftriaxone) 16:00:32 CDT CPT-35970 Chest 2V Frontal and Lat 15:26:45 CDT CPT-04808 Chest 2V Frontal and Lat 10:23:27 CDT CPT-61226 Venipuncture Draw Fee 10:11:00 CDT CPT-06890 Administration single or combination vaccine inc oral 11 :56:38 CDT CPT-49684 Influenza split virus > age 3 11:56:38 CDT CPT-60005 Venipuncture Draw Fee 08:49:54 STOCK CONTROL SUPERVISOR CPT-48147 EKG Trac and Interp 17:54:19 STOCK CONTROL SUPERVISOR
--- OUTSIDE RECORDS SUMMARY | 2018-07-02 20:49 | XMS REPORT | Clinical Summary ---
Author Author Admin, TERELL Organization [facility] Address Unknown Phone Allergies, Adverse [...] four times per day INSULIN SYRINGE-NEEDLE U-100 [id number] Active Alina Castaneda MD PhD Active CYCLOBENZAPRINE HCL 10 MG TABS 1 tablet by mouth three times daily, scheduled CYCLOBENZAPRINE HCL 31077411849 Active Alina Castaneda MD PhD Active HUMALOG 100 UNIT/ML SOLN take 40u with each meal INSULIN LISPRO (HUMAN) 41456274902 Active Alina Castaneda MD PhD Active TOLTERODINE TARTRATE 2 MG TABS 1 pill twice daily, for bladder TOLTERODINE TARTRATE 48823437513 Active Alina Castaneda MD PhD Active DETROL LA 4 MG [id number] Take 1 tablet by mouth daily TOLTERODINE TARTRATE 87179707254 No Longer Active Alina Castaneda MD PhD Active HYDROCODONE-ACETAMINOPHEN 5-325 MG TABS 2 tabs by mouth three times daily as needed for pain HYDROCODONE-ACETAMINOPHEN 51933618932 Active Alina Castaneda MD PhD Active TERESE CONTOUR TEST STRP monitor blood sugars 3x/day GLUCOSE BLOOD 76371673735 No Longer Active Alina Castaneda MD PhD Active EQL TRUETEST TEST STRP Test blood sugar TID GLUCOSE BLOOD 77880118067 No Longer Active Alina Castaneda MD PhD Active FLUTICASONE PROPIONATE 50 MCG/ACT SUSP 2 sprays each nostril qDay x 30 days FLUTICASONE PROPIONATE 12900888021 No Longer Active Alina Castaneda MD PhD Active IBUPROFEN 200 MG TABS 1 Q 6 hr. PRN IBUPROFEN 38828294782 No Longer Active Alina Castaneda MD PhD Active NIACIN ER 500 MG CR-TABS 4 qHS (for triglycerides) NIACIN 69697114992 No Longer Active Alina Castaneda MD PhD Active LEVEMIR 100 UNIT/ML SOLN Take 100u at 7-8pm INSULIN DETEMIR 56271878776 Active Alina Castaneda MD PhD Active TRUETEST TEST STRP check sugars 4x/day GLUCOSE BLOOD 53226487716 Active Alina Castaneda MD PhD Active ALFUZOSIN HCL ER 10 MG [id number] 1 tablet daily ALFUZOSIN HCL 88920341015 Active Vanessa Hickey MD Active CLONAZEPAM 1 MG TABS 1 pill by mouth three times daily CLONAZEPAM 75494306770 Active Alina Castaneda MD PhD Active LOVAZA 1 GM CAPS 4 daily (for triglycerides) [id number] ETHYL ESTERS 43804459628 Active Alina Castaneda MD PhD Active SAPHRIS 5 MG SUBL by mouth twice a day ASENAPINE MALEATE 10984618763 No Longer Active Maliheh Gurdeepglestela [facility] Active ACETAMINOPHEN 500 MG TABS 2 Q 6 hr. PRN ACETAMINOPHEN 36895929010 No Longer Active Marvel MENDOZAP Active VERAPAMIL HCL ER 120 MG [id number] 1 pill by mouth twice a day, for headache prevention/control VERAPAMIL HCL 46161084338 Active Alina Castaneda MD PhD Active ORPHENADRINE CITRATE ER 100 MG [id number]-MFT 1 every 12 hr. as needed ORPHENADRINE CITRATE 80427681114 No Longer Active Alina Castaneda MD PhD Active NIACIN CR 500 MG CR-TABS 2 qHS NIACIN 31297916941 No Longer Active Alina Castaneda MD PhD Active AMOXICILLIN 500 MG CAPS 2 po BID x 10 days AMOXICILLIN 88244125641 No Longer Active Alina Castaneda MD PhD Active ZYPREXA 7.5 MG TABS 1 at HS OLANZAPINE 32564696330 Active Alina Castaneda MD PhD Active THIOTHIXENE 5 MG CAPS by mouth twice a day THIOTHIXENE 07138006646 Active Alina Castaneda MD PhD Active HYDROCODONE-ACETAMINOPHEN 7.5-325 MG TABS 1 four times a day as needed for pain HYDROCODONE-ACETAMINOPHEN 48513224874 No Longer Active Alina Castaneda MD PhD Active METFORMIN HCL ER 500 MG [id number]-[id number] Take three tablets by mouth everyday METFORMIN HCL 97495262364 Active Marvel MENDOZAP Active DOXEPIN HCL 10 MG CAPS Take 1 tablet by mouth daily DOXEPIN HCL 84984739845 No Longer Active Salina Han [facility] Active NAVANE 10 MG CAPS 1/2 tablet twice a day THIOTHIXENE No Longer Active Salina ROBBINS Active CYCLOBENZAPRINE HCL 10 MG TABS 1/2 tablet by mouth every 8 hours as needed for muscle spasms CYCLOBENZAPRINE HCL 49541099983 No Longer Active Alina Castaneda MD PhD Active BACTROBAN 2 % CREAM apply to ear and nose twice daily MUPIROCIN CALCIUM 82724245438 No Longer Active Alina Castaneda MD PhD Active HYDROCODONE-ACETAMINOPHEN 5-325 MG TABS take one tablet by mouth every four hours as needed for pain HYDROCODONE-ACETAMINOPHEN 42784663688 No Longer Active Alina Castaneda MD PhD Active ZOLPIDEM TARTRATE 10 MG TABS take at bedtime ZOLPIDEM TARTRATE 94522858908 Active Alina Castaneda MD PhD Active ZYPREXA 5 MG TABS take one tablet by mouth every evening OLANZAPINE 23342486111 No Longer Active Alina Castaneda MD PhD Active ALBUTEROL SULFATE 0.083 % NEBU SOLN one vial per nebulizer TID and PRN cough/ soa ALBUTEROL SULFATE 35373694878 No Longer Active Alina Castaneda MD PhD Active GUAIFENESIN 600 MG [id number]-DAV 1 tablet by mouth twice daily if needed for cough GUAIFENESIN 28125931164 No Longer Active Marvel MARROQUIN Active AZITHROMYCIN 500 MG SOLR 1 po q day AZITHROMYCIN 12764056365 No Longer Active Alina Castaneda MD PhD Active METOPROLOL SUCCINATE 100 MG SK78M-FMI 1 by mouth daily for blood pressure METOPROLOL SUCCINATE 17192289041 Active Alina Castaneda MD PhD Active PROMETHAZINE-CODEINE 6.25-10 MG/5ML SYRP 1 tsp po q 6 hours prn cough PROMETHAZINE-CODEINE 97093812415 No Longer Active Alina Castaneda MD PhD Active CEFDINIR 300 MG CAPS by mouth twice a day CEFDINIR 99839303957 No Longer Active Alina Castaneda MD PhD Active METFORMIN HCL 500 MG [id number]-ZPX Take 3 tablets by mouth everyday METFORMIN HCL 38268078544 No Longer Active Alina Castaneda MD PhD Active LEVEMIR 100 UNIT/ML SOLN 90 units SQ qHS INSULIN DETEMIR 60576800604 No Longer Active Marvel MARROQUIN Active TOPROL XL 100 MG UM86I-FYO 1 @ HS METOPROLOL SUCCINATE 94001938692 No Longer Active Marvel MARROQUIN Active ALLOPURINOL 300 MG TABS Take one by mouth daily ALLOPURINOL 22678553065 Active Alina Castaneda MD PhD Active ZYPREXA 10 MG TABS Take one by mouth daily OLANZAPINE 07328334515 No Longer Active Alina Castaneda MD PhD Active NOVOLOG 100 UNIT/ML SOLN 40 units with every meal INSULIN ASPART 11816631252 No Longer Active Alina Castaneda MD PhD Active VERAPAMIL HCL CR 120 MG TAB CR 1 qPM VERAPAMIL HCL 28102785846 No Longer Active Salina Han [facility] Active ZYPREXA 15 MG TABS Take 1 tablet by mouth daily OLANZAPINE 07755289710 No Longer Active Marvel MARROQUIN Active LISINOPRIL 20 MG TABS 1 BID LISINOPRIL 54282543069 Active Mao Rodriguez MD Active ALBUTEROL SULFATE (2.5 MG/3ML) 0.083% NEBU 1 neb tid and prn cough ALBUTEROL SULFATE 22878008029 No Longer Active Alina Castaneda MD PhD Active FLUVOXAMINE MALEATE 100 MG TABS Take one (1) tablet by mouth am, 1/2 at noon, 1 pm FLUVOXAMINE MALEATE 05738546568 Active Alina Castaneda MD PhD Active TRAVATAN Z 0.004 % SOLN 1 gtt each eye daily TRAVOPROST 59907546288 Active Alina Mendez Active LANTUS 100 UNIT/ML SOLN 60 units sq q hs INSULIN GLARGINE 65018295565 No Longer Active Alina Mendez Active UROXATRAL 10 MG [id number]-XQY Take 1 tablet by mouth daily ALFUZOSIN HCL 05131723029 Active Tanya MARROQUIN Active ACETAMINOPHEN 500 MG TABS 2 Q 6 hr. PRN ACETAMINOPHEN 500 MG TABS 619358 ACETAMINOPHEN Inactive ALBUTEROL SULFATE 0.083 % NEBU SOLN one vial per nebulizer TID and PRN cough/ soa ALBUTEROL SULFATE 0.083 % NEBU SOLN 895459 ALBUTEROL SULFATE Inactive ALBUTEROL SULFATE (2.5 MG/3ML) 0.083% NEBU 1 neb tid and prn cough ALBUTEROL SULFATE (2.5 MG/3ML) 0.083% NEBU 879936 ALBUTEROL SULFATE Inactive AMOXICILLIN 500 MG CAPS 2 po BID x 10 days AMOXICILLIN 500 MG CAPS 056602 AMOXICILLIN Inactive CYCLOBENZAPRINE HCL 10 MG TABS 1/2 tablet by mouth every 8 hours as needed for muscle spasms CYCLOBENZAPRINE HCL 10 MG TABS 903033 CYCLOBENZAPRINE HCL Inactive DOXEPIN HCL 10 MG CAPS Take 1 tablet by mouth daily DOXEPIN HCL 10 MG CAPS 1350032 DOXEPIN HCL Inactive IBUPROFEN 200 MG TABS 1 Q 6 hr. PRN IBUPROFEN 200 MG TABS 304878 IBUPROFEN Inactive NAVANE 10 MG CAPS 1/2 tablet twice a day NAVANE 10 MG CAPS THIOTHIXENE Inactive NIACIN CR 500 MG CR-TABS 2 qHS NIACIN CR 500 MG CR- TABS NIACIN Inactive NIACIN ER 500 MG CR-TABS 4 qHS (for triglycerides) NIACIN ER 500 MG CR-TABS NIACIN Inactive PROMETHAZINE-CODEINE 6.25-10 MG/5ML SYRP 1 tsp po q 6 hours prn cough PROMETHAZINE-CODEINE 6.25-10 MG/5ML SYRP 830829 PROMETHAZINE- CODEINE Inactive VERAPAMIL HCL CR 120 MG TAB CR 1 qPM VERAPAMIL HCL CR 120 MG TAB CR VERAPAMIL HCL Inactive ZYPREXA 5 MG TABS take one tablet by mouth every evening ZYPREXA 5 MG TABS 558267 OLANZAPINE Inactive ZYPREXA 10 MG TABS Take one by mouth daily ZYPREXA 10 MG TABS 748798 OLANZAPINE Inactive AZITHROMYCIN 500 MG SOLR 1 po q day AZITHROMYCIN 500 MG SOLR 278637 AZITHROMYCIN Inactive BACTROBAN 2 % CREAM apply to ear and nose twice daily BACTROBAN 2 % CREAM 734239 MUPIROCIN CALCIUM Inactive CEFDINIR 300 MG CAPS by mouth twice a day CEFDINIR 300 MG CAPS 911841 CEFDINIR Inactive ZYPREXA 15 MG TABS Take 1 tablet by mouth daily ZYPREXA 15 MG TABS 130956 OLANZAPINE Inactive DETROL LA 4 MG [id number] Take 1 tablet by mouth daily DETROL LA 4 MG [id number]-[id number] TOLTERODINE TARTRATE Inactive TOPROL XL 100 MG [id number]-PKB 1 @ HS TOPROL XL 100 MG CW86Q-INW METOPROLOL SUCCINATE Inactive HYDROCODONE-ACETAMINOPHEN 5-325 MG TABS take one tablet by mouth every four hours as needed for pain HYDROCODONE-ACETAMINOPHEN 5-325 MG TABS 183102 HYDROCODONE-ACETAMINOPHEN Inactive HYDROCODONE-ACETAMINOPHEN 7.5-325 MG TABS 1 four times a day as needed for pain HYDROCODONE-ACETAMINOPHEN 7.5-325 MG TABS 684939 HYDROCODONE-ACETAMINOPHEN Inactive GUAIFENESIN 600 MG DD66E-NAK 1 tablet by mouth twice daily if needed for cough GUAIFENESIN 600 MG [id number]-PRV GUAIFENESIN Inactive ORPHENADRINE CITRATE ER 100 MG DR71D-EMJ 1 every 12 hr. as needed ORPHENADRINE CITRATE ER 100 MG YQ86Y-AUW ORPHENADRINE CITRATE Inactive LEVEMIR 100 UNIT/ML SOLN 90 units SQ qHS LEVEMIR 100 UNIT/ML SOLN INSULIN DETEMIR Inactive FLUTICASONE PROPIONATE 50 MCG/ACT SUSP 2 sprays each nostril qDay x 30 days FLUTICASONE PROPIONATE 50 MCG/ACT SUSP 751676 FLUTICASONE PROPIONATE Inactive TERESE CONTOUR TEST STRP monitor blood [...] Fluvirin, Fluarix, Agriflu(>=18 yo)) Fluzone (>3 yrs.) [[id number]] Influenza, seasonal, injectable pneumococcal immunization administered Pneumovax [...] acid - Chemistry sodium, serum 130 mmol/L 050-298 1322/05/01 potassium, serum 5.2 mmol/L 3.5-5.2 chloride, serum [...] 0.40 mg/dL 0.00-1.00 cholesterol, serum 151 mg/dL 219-355 0235/05/01 triglyceride, serum, fasting 356 mg/dL 30-200 HDL [...] HGBA1C - Chemistry sodium, serum 126 mmol/L 224-092 0613/02/26 potassium, serum 4.8 mmol/L 3.5-5.2 chloride, serum [...] DIRECT - Chemistry cholesterol, serum 158 mg/dL 005-198 2769/07/11 triglyceride, serum, fasting 489 mg/dL 30-200 HDL [...] mg/dL Encounters Code Encounter Date Provider Facility CPT-32722 Level 3 Est. Patient 08:20:05 CDT Alina Castaneda MD PhD [facility] [place]-82774 Level 3 Est. Patient 15:17:18 CDT Alina Castaneda MD PhD [facility] [place]-67027 Level 3 Est. Patient 14:25:36 WASHER BLANKET [facility]-56000 Level 3 Est. Patient 10:09:15 WASHER BLANKET [facility] CPT-17734 Level 3 Est. Patient 21:28:43 CDT Alina Castaneda MD PhD [facility] [place]-65921 Level 3 Est. Patient 15:20:11 CDT [facility] Gurdeepestela [facility]-94757 Level 4 Est. Patient 19:08:12 CDT Alina Castaneda MD PhD [facility] [place] Level 3 Est. Patient 15:06:39 CDT [facility] Gurdeepestela [facility]-38149 Level 4 Est. Patient 17:48:15 CDT Alina Castaneda MD [facility]-43196 Level 3 Est. Patient 14:53:49 CDT Alina Castaneda MD [facility]-58640 Level 3 Est. Patient 09:35:16 CDT Alina Castaneda MD [facility]-87045 Level 3 Est. Patient 12:23:22 CDT Alina Castaneda MD [facility]-62142 Level 3 Est. Patient 16:19:15 CDT Alina Castaneda MD [facility]-76751 Level 3 Est. Patient 21:39:56 WASHER BLANKET Alina Castaneda MD [facility]-11588 Level 4 Est. Patient 14:12:56 WASHER BLANKET Alina Castaneda MD [facility]-29164 Level 2 Est. Patient 15:34:57 WASHER BLANKET Alian Castaneda MD [facility]-53489 Level 3 Est. Patient 12:17:04 WASHER BLANKET Alina Castaneda MD [facility]-89101 Level 3 Est. Patient 09:18:18 WASHER BLANKET Marvel Charles [facility]-11221 Level 2 Est. Patient 21:50:24 CDT Alina Castaneda MD [facility]-33802 Level 3 Est. Patient 09:17:28 CDT Marvel Charles [facility]-16447 Level 4 Est. Patient 18:54:02 CDT Alina Castaneda MD [facility]-80422 Level 3 Est. Patient 10:47:10 CDT Alina Castaneda MD [facility]-90386 Level 3 Est. Patient 09:22:20 [facility] Est. [facility] 16:39[facility]43 [facility] CPT-40760 Level 3 Est. Patient 16:05:16 CDT Alina Castaneda MD [facility] CPT-19357 Level 3 Est. Patient 00:29:15 CDT Alina Castaneda MD [facility] CPT-08087 Level 3 Est. Patient 10:49:22 WASHER BLANKET Marvel Thurstonestela [facility] CPT-17932 Level 3 Est. Patient 21:30:19 WASHER BLANKET Alina Castaneda MD [facility] CPT-72896 Level 4 Est. Patient 17:04:11 WASHER BLANKET [facility] Level 3 Est. Patient 15:34:11 WASHER BLANKET [facility] CPT-32917 Level 2 Est. Patient 12:51:58 WASHER BLANKET Alina Castaneda MD [facility] CPT-15795 Level 3 Est. Patient 13:20:01 WASHER BLANKET Alina Castaneda MD [facility] CPT-67425 Level 3 Est. Patient 09:23:35 CDT Alina Castaneda MD [facility] Procedures Code Procedure Name Date Entry Date Standard Description CPT-01568 Administration single or combination vaccine inc oral 11 :49:51 CDT CPT-07194 Pneumovax 11:49:51 CDT CPT-52278 Ribs unilateral 2V 12:37:22 WASHER BLANKET CPT-87250 Chest 2V Frontal and Lat 17:15:26 CDT CPT-01198 Abx/Therapy Injection 18:54:02 CDT CPT-J0696 Rocephin 1000 mg (Ceftriaxone) 16:00:32 CDT CPT-74455 Chest 2V Frontal and Lat 15:26:45 CDT CPT-66586 Chest 2V Frontal and Lat 10:23:27 CDT CPT-43495 Venipuncture Draw Fee 10:11:00 CDT CPT-17921 Administration single or combination vaccine inc oral 11 :56:38 CDT CPT-07830 Influenza split virus > age 3 11:56:38 CDT CPT-51788 Venipuncture Draw Fee 08:49:54 WASHER BLANKET CPT-25382 EKG Trac and Interp 17:54:19 WASHER BLANKET
--- OUTSIDE RECORDS SUMMARY | 2018-07-02 20:50 | XMS REPORT | Clinical Summary ---
Author Author Admin, TERELL Organization [facility] Address Unknown Phone Allergies, Adverse Reactions, Alerts [...] with lunch and suppetr. 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 BD INSULIN SYRINGE 28G X 1/2" 1 ML MISC 1 four times per day INSULIN SYRINGE-NEEDLE U-100 89782608938 Active Alina Castaneda MD PhD Active CYCLOBENZAPRINE HCL 10 MG TABS 1 tablet by mouth three times daily, scheduled CYCLOBENZAPRINE HCL 57903362863 Active Alina Castaneda MD PhD Active TOLTERODINE TARTRATE 2 MG TABS 1 pill twice daily, for bladder TOLTERODINE TARTRATE 55921370798 Active Alina Castaneda MD PhD Active DETROL LA 4 MG [id number] Take 1 tablet by mouth daily TOLTERODINE TARTRATE 33560513066 No Longer Active Alina Castaneda MD PhD Active HYDROCODONE-ACETAMINOPHEN 5-325 MG TABS 2 tabs by mouth three times daily as needed for pain HYDROCODONE-ACETAMINOPHEN 42433179940 Active Alina Castaneda MD PhD Active TERESE CONTOUR TEST STRP monitor blood sugars 3x/day GLUCOSE BLOOD 81167471832 No Longer Active Alina Castaneda MD PhD Active EQL TRUETEST TEST STRP Test blood sugar TID GLUCOSE BLOOD 68625604000 No Longer Active Alina Castaneda MD PhD Active FLUTICASONE PROPIONATE 50 MCG/ACT SUSP 2 sprays each nostril qDay x 30 days FLUTICASONE PROPIONATE 37797102425 No Longer Active Alina Castaneda MD PhD Active IBUPROFEN 200 MG TABS 1 Q 6 hr. PRN IBUPROFEN 53463276200 No Longer Active Alina Castaneda MD PhD Active NIACIN ER 500 MG CR-TABS 4 qHS (for triglycerides) NIACIN 92641091609 No Longer Active Alina Castaneda MD PhD Active TRUETEST TEST STRP check sugars 4x/day GLUCOSE BLOOD 86977426377 Active Alina Castaneda MD PhD Active ALFUZOSIN HCL ER 10 MG [id number] 1 tablet daily ALFUZOSIN HCL 36454695535 Active Vanessa Hickey MD Active CLONAZEPAM 1 MG TABS 1 pill by mouth three times daily CLONAZEPAM 00948639621 Active Alina Castaneda MD PhD Active LOVAZA 1 GM CAPS 4 daily (for triglycerides) ZGAPS-9-OSQL ETHYL ESTERS 95558526596 Active Alina Castaneda MD PhD Active SAPHRIS 5 MG SUBL by mouth twice a day ASENAPINE MALEATE 22007062822 No Longer Active Marvel MARROQUIN Active ACETAMINOPHEN 500 MG TABS 2 Q 6 hr. PRN ACETAMINOPHEN 14480028098 No Longer Active Marvel MENDOZAP Active VERAPAMIL HCL ER 120 MG [id number] 1 pill by mouth twice a day, for headache prevention/control VERAPAMIL HCL 46086771623 Active Alina Castaneda MD PhD Active ORPHENADRINE CITRATE ER 100 MG [id number] 1 every 12 hr. as needed ORPHENADRINE CITRATE 08572851357 No Longer Active Alina Castaneda MD PhD Active NIACIN CR 500 MG CR-TABS 2 qHS NIACIN 92381175462 No Longer Active Alina Castaneda MD PhD Active AMOXICILLIN 500 MG CAPS 2 po BID x 10 days AMOXICILLIN 81814777809 No Longer Active Alina Castaneda MD PhD Active ZYPREXA 7.5 MG TABS 1 at HS OLANZAPINE 17314619283 Active Alina Castaneda MD PhD Active THIOTHIXENE 5 MG CAPS by mouth twice a day THIOTHIXENE 41167011724 Active Alina Castaneda MD PhD Active HYDROCODONE-ACETAMINOPHEN 7.5-325 MG TABS 1 four times a day as needed for pain HYDROCODONE-ACETAMINOPHEN 55595370508 No Longer Active Alina Castaneda MD PhD Active METFORMIN HCL ER 500 MG [id number]-ZPD Take three tablets by mouth everyday METFORMIN HCL 58761624139 Active Marvel MARROQUIN Active DOXEPIN HCL 10 MG CAPS Take 1 tablet by mouth daily DOXEPIN HCL 60622266488 No Longer Active Salina ROJAS Active NAVANE 10 MG CAPS 1/2 tablet twice a day THIOTHIXENE No Longer Active Salina ROBBINSA Active CYCLOBENZAPRINE HCL 10 MG TABS 1/2 tablet by mouth every 8 hours as needed for muscle spasms CYCLOBENZAPRINE HCL 20309736562 No Longer Active Alina Castaneda MD PhD Active BACTROBAN 2 % CREAM apply to ear and nose twice daily MUPIROCIN CALCIUM 60557213572 No Longer Active Alina Castaneda MD PhD Active HYDROCODONE-ACETAMINOPHEN 5-325 MG TABS take one tablet by mouth every four hours as needed for pain HYDROCODONE-ACETAMINOPHEN 59616603185 No Longer Active Alina Castaneda MD PhD Active ZOLPIDEM TARTRATE 10 MG TABS take at bedtime ZOLPIDEM TARTRATE 28530000430 Active Alina Castaneda MD PhD Active ZYPREXA 5 MG TABS take one tablet by mouth every evening OLANZAPINE 34933837606 No Longer Active Alina Castaneda MD PhD Active ALBUTEROL SULFATE 0.083 % NEBU SOLN one vial per nebulizer TID and PRN cough/ soa ALBUTEROL SULFATE 90812827798 No Longer Active Alina Castaneda MD PhD Active GUAIFENESIN 600 MG [id number] 1 tablet by mouth twice daily if needed for cough GUAIFENESIN 13336036668 No Longer Active Marvel MENDOZAP Active AZITHROMYCIN 500 MG SOLR 1 po q day AZITHROMYCIN 72499282466 No Longer Active Alina Castaneda MD PhD Active METOPROLOL SUCCINATE 100 MG SQ16Q-NIH 1 by mouth daily for blood pressure METOPROLOL SUCCINATE 23970986561 Active Alina Castaneda MD PhD Active PROMETHAZINE-CODEINE 6.25-10 MG/5ML SYRP 1 tsp po q 6 hours prn cough PROMETHAZINE-CODEINE 03703264283 No Longer Active Alina Castaneda MD PhD Active CEFDINIR 300 MG CAPS by mouth twice a day CEFDINIR 00961472706 No Longer Active Alina Castaneda MD PhD Active METFORMIN HCL 500 MG GG92C-MNE Take 3 tablets by mouth everyday METFORMIN HCL 91024628329 No Longer Active Alina Castaneda MD PhD Active LEVEMIR 100 UNIT/ML SOLN 90 units SQ qHS INSULIN DETEMIR 67799835114 No Longer Active Marvel MARROQUIN Active TOPROL XL 100 MG [id number]-KII 1 @ HS METOPROLOL SUCCINATE 30468183514 No Longer Active Marvel MARROQUIN Active ALLOPURINOL 300 MG TABS Take one by mouth daily ALLOPURINOL 87878232370 Active Alina Castaneda MD PhD Active ZYPREXA 10 MG TABS Take one by mouth daily OLANZAPINE 96391199048 No Longer Active Alina Castaneda MD PhD Active NOVOLOG 100 UNIT/ML SOLN 40 units with every meal INSULIN ASPART 29749457815 No Longer Active Alina Castaneda MD PhD Active VERAPAMIL HCL CR 120 MG TAB CR 1 qPM VERAPAMIL HCL 77245267759 No Longer Active Salina Emely [facility] Active ZYPREXA 15 MG TABS Take 1 tablet by mouth daily OLANZAPINE 41997174528 No Longer Active Marvel MARROQUIN Active LISINOPRIL 20 MG TABS 1 BID LISINOPRIL 35476259228 Active aMo Rodriguez MD Active ALBUTEROL SULFATE (2.5 MG/3ML) 0.083% NEBU 1 neb tid and prn cough ALBUTEROL SULFATE 09465706027 No Longer Active Alina Castaneda MD PhD Active FLUVOXAMINE MALEATE 100 MG TABS Take one (1) tablet by mouth am, 1/2 at noon, 1 pm FLUVOXAMINE MALEATE 33222267388 Active Alina Castaneda MD PhD Active TRAVATAN Z 0.004 % SOLN 1 gtt each eye daily TRAVOPROST 75218065410 Active Alina Mendez Active LANTUS 100 UNIT/ML SOLN 60 units sq q hs INSULIN GLARGINE 59220996003 No Longer Active Alina Mendez Active UROXATRAL 10 MG GQ71M-JBO Take 1 tablet by mouth daily ALFUZOSIN HCL 77093641511 Active Tanya MARROQUIN Active ALBUTEROL SULFATE (2.5 MG/3ML) 0.083% NEBU 1 neb tid and prn cough ALBUTEROL SULFATE (2.5 MG/3ML) 0.083% NEBU 872144 ALBUTEROL SULFATE Inactive ZYPREXA 15 MG TABS Take 1 tablet by mouth daily ZYPREXA 15 MG TABS 236688 OLANZAPINE Inactive VERAPAMIL HCL CR 120 MG TAB CR 1 qPM VERAPAMIL HCL CR 120 MG TAB CR VERAPAMIL HCL Inactive ZYPREXA 10 MG TABS Take one by mouth daily ZYPREXA 10 MG TABS 425036 OLANZAPINE Inactive TOPROL XL 100 MG [id number] 1 @ HS TOPROL XL 100 MG [id number]-FTO METOPROLOL SUCCINATE Inactive LEVEMIR 100 UNIT/ML SOLN 90 units SQ qHS LEVEMIR 100 UNIT/ML SOLN INSULIN DETEMIR Inactive PROMETHAZINE-CODEINE 6.25-10 MG/5ML SYRP 1 tsp po q 6 hours prn cough PROMETHAZINE-CODEINE 6.25-10 MG/5ML SYRP 649158 PROMETHAZINE- CODEINE Inactive GUAIFENESIN 600 MG [id number]-KWA 1 tablet by mouth twice daily if needed for cough GUAIFENESIN 600 MG FC90O-RHE GUAIFENESIN Inactive ALBUTEROL SULFATE 0.083 % NEBU SOLN one vial per nebulizer TID and PRN cough/ soa ALBUTEROL SULFATE 0.083 % NEBU SOLN 040772 ALBUTEROL SULFATE Inactive ZYPREXA 5 MG TABS take one tablet by mouth every evening ZYPREXA 5 MG TABS 266971 OLANZAPINE Inactive HYDROCODONE-ACETAMINOPHEN 5-325 MG TABS take one tablet by mouth every four hours as needed for pain HYDROCODONE-ACETAMINOPHEN 5-325 MG TABS 756855 HYDROCODONE-ACETAMINOPHEN Inactive BACTROBAN 2 % CREAM apply to ear and nose twice daily BACTROBAN 2 % CREAM 856934 MUPIROCIN CALCIUM Inactive CYCLOBENZAPRINE HCL 10 MG TABS 1/2 tablet by mouth every 8 hours as needed for muscle spasms CYCLOBENZAPRINE HCL 10 MG TABS 040588 CYCLOBENZAPRINE HCL Inactive NAVANE 10 MG CAPS 1/2 tablet twice a day NAVANE 10 MG CAPS THIOTHIXENE Inactive DOXEPIN HCL 10 MG CAPS Take 1 tablet by mouth daily DOXEPIN HCL 10 MG CAPS 6831038 DOXEPIN HCL Inactive HYDROCODONE-ACETAMINOPHEN 7.5-325 MG TABS 1 four times a day as needed for pain HYDROCODONE-ACETAMINOPHEN 7.5-325 MG TABS 505051 HYDROCODONE-ACETAMINOPHEN Inactive NIACIN CR 500 MG CR-TABS 2 qHS NIACIN CR 500 MG CR- TABS NIACIN Inactive ORPHENADRINE CITRATE ER 100 MG TW49Y-SVG 1 every 12 hr. as needed ORPHENADRINE CITRATE ER 100 MG EN06M-ZPW ORPHENADRINE CITRATE Inactive ACETAMINOPHEN 500 MG TABS 2 Q 6 hr. PRN ACETAMINOPHEN 500 MG TABS 126768 ACETAMINOPHEN Inactive SAPHRIS 5 MG SUBL by mouth twice a day SAPHRIS 5 MG SUBL ASENAPINE MALEATE Inactive NIACIN ER 500 MG CR-TABS 4 qHS (for triglycerides) NIACIN ER 500 MG CR-TABS NIACIN Inactive IBUPROFEN 200 MG TABS 1 Q 6 hr. PRN IBUPROFEN 200 MG TABS 355220 IBUPROFEN Inactive FLUTICASONE PROPIONATE 50 MCG/ACT SUSP 2 sprays each nostril qDay x 30 days FLUTICASONE PROPIONATE 50 MCG/ACT SUSP 171681 FLUTICASONE PROPIONATE Inactive EQL TRUETEST TEST STRP Test blood sugar TID EQL TRUETEST TEST STRP GLUCOSE BLOOD Inactive TERESE CONTOUR TEST STRP monitor blood sugars 3x/day TERESE CONTOUR TEST STRP GLUCOSE BLOOD Inactive DETROL LA 4 MG RF88V-LTW Take 1 tablet by mouth daily DETROL LA 4 MG [id number]-DPH TOLTERODINE TARTRATE Inactive CEFDINIR 300 MG CAPS by mouth twice a day CEFDINIR 300 MG CAPS 140189 CEFDINIR Inactive AZITHROMYCIN 500 MG SOLR 1 po q day AZITHROMYCIN 500 MG SOLR 188272 AZITHROMYCIN Inactive AMOXICILLIN 500 MG CAPS 2 po BID x 10 days AMOXICILLIN 500 MG CAPS 776842 AMOXICILLIN Inactive Immunizations Vaccine Administration Date Value [...] Fluvirin, Fluarix, Agriflu(>=18 yo)) Fluzone (>3 yrs.) [[id number]] Influenza, seasonal, injectable pneumococcal immunization administered Pneumovax [...] HGBA1C - Chemistry sodium, serum 130 mmol/L 312-602 4053/06/09 potassium, serum 4.0 mmol/L 3.5-5.2 chloride, serum [...] acid - Chemistry sodium, serum 130 mmol/L 861-147 0847/05/01 potassium, serum 5.2 mmol/L 3.5-5.2 chloride, serum [...] 0.40 mg/dL 0.00-1.00 cholesterol, serum 151 mg/dL 310-773 2657/05/01 triglyceride, serum, fasting 356 mg/dL 30-200 HDL [...] HGBA1C - Chemistry sodium, serum 126 mmol/L 012-895 8129/02/26 potassium, serum 4.8 mmol/L 3.5-5.2 chloride, serum [...] DIRECT - Chemistry cholesterol, serum 158 mg/dL 627-454 1089/07/11 triglyceride, serum, fasting 489 mg/dL 30-200 HDL [...] mg/dL Encounters Code Encounter Date Provider Facility CPT-93290 Level 3 Est. Patient 13:19:10 CDT [facility] [place]PT-87132 Level 3 Est. Patient 08:20:05 CDT Alina Castaneda MD [facility] CPT-04591 Level 3 Est. Patient 15:17:18 CDT Alina Castaneda MD PhD [facility] CPT-76661 Level 3 Est. Patient 14:25:36 TECHNICAL ANALYST [facility] [place] CPT-55329 Level 3 Est. Patient 10:09:15 TECHNICAL ANALYST [facility] [place] CPT-21013 Level 3 Est. Patient 21:28:43 CDT Alina Castaneda MD PhD [facility] CPT-42971 Level 3 Est. Patient 15:20:11 CDT Marvel [facility] CPT-91410 Level 4 Est. Patient 19:08:12 CDT Alina Castaneda MD [facility]-45075 Level 3 Est. Patient 15:06:[address] [facility] Sh[place]ivia Araceli [facility]-46197 Level 4 Est. Patient 17:48:15 CDT Alina Castaneda MD [facility]-99415 Level 3 Est. Patient 14:53:49 CDT Alina Castaneda MD [facility]-68081 Level 3 Est. Patient 09:35:16 CDT Alina Castaneda MD [facility]-63399 Level 3 Est. Patient 12:23:22 CDT Alina Castaneda MD [facility]-02099 Level 3 Est. Patient 16:19:15 CDT Alina Castaneda MD [facility]-77272 Level 3 Est. Patient 21:39:56 TECHNICAL ANALYST Alina Castaneda MD [facility]-87130 Level 4 Est. Patient 14:12:56 TECHNICAL ANALYST Alina Castaneda MD [facility]-76018 Level 2 Est. Patient 15:34:57 TECHNICAL ANALYST Alina Castaneda MD [facility]-59591 Level 3 Est. Patient 12:17:04 TECHNICAL ANALYST Alina Castaneda MD [facility]-35064 Level 3 Est. Patient 09:18:18 TECHNICAL ANALYST Marvel [facility]-52584 Level 2 Est. Patient 21:50:24 CDT Alina Castaneda MD [facility]-54703 Level 3 Est. Patient 09:17:28 CDT Marvel Araceli [facility] CPT-92346 Level 4 Est. Patient 18:54:02 CDT Alina Castaneda MD [facility] CPT-13176 Level 3 Est. Patient 10:47:10 CDT Alina Castaneda MD [facility] CPT-68040 Level 3 Est. Patient 09:22:20 CDT Marvel Thurstonestela [facility] CPT-27332 Level 3 Est. Patient 16:39:43 CDT Marvel Araceli [facility] CPT-41671 Level 3 Est. Patient 16:05:16 CDT Alina Castaneda MD [facility] CPT-70328 Level 3 Est. Patient 00:29:15 CDT Alina Castaneda MD [facility] CPT-91241 Level 3 Est. Patient 10:49:22 TECHNICAL ANALYST [facility] CPT-94552 Level 3 Est. Patient 21:30:19 TECHNICAL ANALYST Alina Castaneda MD [facility] CPT-86838 Level 4 Est. Patient 17:04:11 TECHNICAL ANALYST [facility] CPT-79729 Level 3 Est. Patient 15:34:11 TECHNICAL ANALYST Marvel [facility] CPT-34793 Level 2 Est. Patient 12:51:58 TECHNICAL ANALYST Alina Castaneda MD [facility] CPT-63788 Level 3 Est. Patient 13:20:01 TECHNICAL ANALYST Alina Castaneda MD [facility] CPT-22370 Level 3 Est. Patient 09:23:35 CDT Alina Castaneda MD [facility] Procedures Code Procedure Name Date Entry Date Standard Description CPT-20160 Administration single or combination vaccine inc oral 11 :49:51 CDT CPT-31849 Pneumovax 11:49:51 CDT CPT-64042 Ribs unilateral 2V 12:37:22 TECHNICAL ANALYST CPT-73379 Chest 2V Frontal and Lat 17:15:26 CDT CPT-23382 Abx/Therapy Injection 18:54:02 CDT CPT-J0696 Rocephin 1000 mg (Ceftriaxone) 16:00:32 CDT CPT-12252 Chest 2V Frontal and Lat 15:26:45 CDT CPT-05183 Chest 2V Frontal and Lat 10:23:27 CDT CPT-44756 Venipuncture Draw Fee 10:11:00 CDT CPT-39058 Administration single or combination vaccine inc oral 11 :56:38 CDT CPT-28977 Influenza split virus > age 3 11:56:38 CDT CPT-05785 Venipuncture Draw Fee 08:49:54 TECHNICAL ANALYST CPT-69113 EKG Trac and Interp 17:54:19 TECHNICAL ANALYST
--- OUTSIDE RECORDS SUMMARY | 2018-07-02 20:51 | XMS REPORT | Clinical Summary ---
Author Author Admin, TERELL Organization [facility] Address Unknown Phone Unavailable Allergies, [...] by mouth nightly, for pain MORPHINE SULFATE [id number] Active Michele Chacon MD Active LATUDA 80 MG TABS 1 tab by mouth every evening LURASIDONE HCL 05437193589 Active Alina Castaneda MD PhD Active UROXATRAL 10 MG [id number] Take 1 tablet by mouth daily ALFUZOSIN HCL 79496692745 No Longer Active Alina Castaneda MD PhD Active THIOTHIXENE 5 MG CAPS by mouth twice a day THIOTHIXENE 83293156202 No Longer Active Alina Castaneda MD PhD Active ZYPREXA 7.5 MG TABS 1 at HS OLANZAPINE 69087775959 No Longer Active Alina Castaneda MD PhD Active HUMALOG 100 UNIT/ML SOLN Take 20 units with breakfast, 10u with lunch and suppetr. INSULIN LISPRO (HUMAN) 29152818580 Active Maliheh Ziglari SCANNING COORDINATOR Active LEVEMIR 100 UNIT/ML SOLN Take 70 u at 7-8pm INSULIN DETEMIR 68828135911 Active Maliheh Ziglari SCANNING COORDINATOR Active BD INSULIN SYRINGE 28G X 1/2" 1 ML MISC 1 four times per day INSULIN SYRINGE-NEEDLE U-100 73878017932 Active Maliheh Ziglari SCANNING COORDINATOR Active CYCLOBENZAPRINE HCL 10 MG TABS 1 tablet by mouth three times daily, scheduled CYCLOBENZAPRINE HCL 21257857891 Active Alina Castaneda MD PhD Active TOLTERODINE TARTRATE 2 MG TABS 1 pill twice daily, for bladder TOLTERODINE TARTRATE 49009760109 Active Alina Castaneda MD PhD Active DETROL LA 4 MG [id number] Take 1 tablet by mouth daily TOLTERODINE TARTRATE 02552824579 No Longer Active Alina Castaneda MD PhD Active HYDROCODONE-ACETAMINOPHEN 5-325 MG TABS 2 tabs by mouth three times daily as needed for pain HYDROCODONE-ACETAMINOPHEN 71126676306 Active Rhett Luther DO Active TERESE CONTOUR TEST STRP monitor blood sugars 3x/day GLUCOSE BLOOD 78528589497 No Longer Active Alina Castaneda MD PhD Active EQL TRUETEST TEST STRP Test blood sugar TID GLUCOSE BLOOD 89721399214 No Longer Active Alina Castaneda MD PhD Active FLUTICASONE PROPIONATE 50 MCG/ACT SUSP 2 sprays each nostril qDay x 30 days FLUTICASONE PROPIONATE 34958622366 No Longer Active Alina Castaneda MD PhD Active IBUPROFEN 200 MG TABS 1 Q 6 hr. PRN IBUPROFEN 56302481579 No Longer Active Alina Castaneda MD PhD Active NIACIN ER 500 MG CR-TABS 4 qHS (for triglycerides) NIACIN 79229810502 No Longer Active Alina Castaneda MD PhD Active TRUETEST TEST STRP check sugars 4x/day GLUCOSE BLOOD 16973277135 Active Marvel MARROQUIN Active ALFUZOSIN HCL ER 10 MG [id number] 1 tablet daily ALFUZOSIN HCL 47970065288 Active Vanessa Hickey MD Active CLONAZEPAM 1 MG TABS 1 pill by mouth three times daily CLONAZEPAM 18315996726 Active Alina Castaneda MD PhD Active LOVAZA 1 GM CAPS 4 daily (for triglycerides) DTNQC-3-TIVB ETHYL ESTERS 61881921194 Active Alina Castaneda MD PhD Active SAPHRIS 5 MG SUBL by mouth twice a day ASENAPINE MALEATE 44534611631 No Longer Active Marvel MARROQUIN Active ACETAMINOPHEN 500 MG TABS 2 Q 6 hr. PRN ACETAMINOPHEN 93752335504 No Longer Active Marvel MARROQUIN Active VERAPAMIL HCL ER 120 MG [id number] 1 pill by mouth twice a day, for headache prevention/control VERAPAMIL HCL 70043137215 Active Alina Castaneda MD PhD Active ORPHENADRINE CITRATE ER 100 MG [id number] 1 every 12 hr. as needed ORPHENADRINE CITRATE 01900982698 No Longer Active Alina Castaneda MD PhD Active NIACIN CR 500 MG CR-TABS 2 qHS NIACIN 26325530665 No Longer Active Alina Castaneda MD PhD Active AMOXICILLIN 500 MG CAPS 2 po BID x 10 days AMOXICILLIN 23974551846 No Longer Active Alina Castaneda MD PhD Active HYDROCODONE-ACETAMINOPHEN 7.5-325 MG TABS 1 four times a day as needed for pain HYDROCODONE-ACETAMINOPHEN 97106331777 No Longer Active Alina Castaneda MD PhD Active METFORMIN HCL ER 500 MG [id number]-BJQ Take three tablets by mouth everyday METFORMIN HCL 85069796539 Active Alina Castaneda MD PhD Active DOXEPIN HCL 10 MG CAPS Take 1 tablet by mouth daily DOXEPIN HCL 96846398439 No Longer Active Salina Emely A Active NAVANE 10 MG CAPS 1/2 tablet twice a day THIOTHIXENE No Longer Active Salina Ervinford A Active CYCLOBENZAPRINE HCL 10 MG TABS 1/2 tablet by mouth every 8 hours as needed for muscle spasms CYCLOBENZAPRINE HCL 51239358326 No Longer Active Alina Castaneda MD PhD Active BACTROBAN 2 % CREAM apply to ear and nose twice daily MUPIROCIN CALCIUM 91619834657 No Longer Active Alina Castaneda MD PhD Active HYDROCODONE-ACETAMINOPHEN 5-325 MG TABS take one tablet by mouth every four hours as needed for pain HYDROCODONE-ACETAMINOPHEN 51696705516 No Longer Active Alina Castaneda MD PhD Active ZOLPIDEM TARTRATE 10 MG TABS take at bedtime ZOLPIDEM TARTRATE 44923089102 Active Alina Castaneda MD PhD Active ZYPREXA 5 MG TABS take one tablet by mouth every evening OLANZAPINE 96231712716 No Longer Active Alina Castaneda MD PhD Active ALBUTEROL SULFATE 0.083 % NEBU SOLN one vial per nebulizer TID and PRN cough/ soa ALBUTEROL SULFATE 58945189796 No Longer Active Alina Castaneda MD PhD Active GUAIFENESIN 600 MG [id number]-BQB 1 tablet by mouth twice daily if needed for cough GUAIFENESIN 38147589458 No Longer Active Marvel MARROQUIN Active AZITHROMYCIN 500 MG SOLR 1 po q day AZITHROMYCIN 03923189560 No Longer Active Alina Castaneda MD PhD Active METOPROLOL SUCCINATE 100 MG YY79T-PBF 1 by mouth daily for blood pressure METOPROLOL SUCCINATE 49961725319 Active Alina Castaneda MD PhD Active PROMETHAZINE-CODEINE 6.25-10 MG/5ML SYRP 1 tsp po q 6 hours prn cough PROMETHAZINE-CODEINE 84528588194 No Longer Active Alina Castaneda MD PhD Active CEFDINIR 300 MG CAPS by mouth twice a day CEFDINIR 98618925559 No Longer Active Alina Castaneda MD PhD Active METFORMIN HCL 500 MG [id number]-[id number] Take 3 tablets by mouth everyday METFORMIN HCL 78431870640 No Longer Active Alina Castaneda MD PhD Active LEVEMIR 100 UNIT/ML SOLN 90 units SQ qHS INSULIN DETEMIR 06789203770 No Longer Active Marvel MARROQUIN Active TOPROL XL 100 MG [id number]-ISA 1 @ HS METOPROLOL SUCCINATE 60383568469 No Longer Active Marvel MARROQUIN Active ALLOPURINOL 300 MG TABS Take one by mouth daily ALLOPURINOL 57710915486 Active Alina Castaneda MD PhD Active ZYPREXA 10 MG TABS Take one by mouth daily OLANZAPINE 25521384640 No Longer Active Alina Castaneda MD PhD Active NOVOLOG 100 UNIT/ML SOLN 40 units with every meal INSULIN ASPART 89127306774 No Longer Active Alina Castaneda MD PhD Active VERAPAMIL HCL CR 120 MG TAB CR 1 qPM VERAPAMIL HCL 83221182896 No Longer Active Salina Han COUNTS INCLUDE 234 BEDS [facility] Active ZYPREXA 15 MG TABS Take 1 tablet by mouth daily OLANZAPINE 60605346045 No Longer Active Marvel MARROQUIN Active LISINOPRIL 20 MG TABS 1 BID LISINOPRIL 66363855330 Active Alina Castaneda MD PhD Active ALBUTEROL SULFATE (2.5 MG/3ML) 0.083% NEBU 1 neb tid and prn cough ALBUTEROL SULFATE 79073939828 No Longer Active Alina Castaneda MD PhD Active FLUVOXAMINE MALEATE 100 MG TABS Take one (1) tablet by mouth am, 1/2 at noon, 1 pm FLUVOXAMINE MALEATE 81452795324 Active Alina Castaneda MD PhD Active TRAVATAN Z 0.004 % SOLN 1 gtt each eye daily TRAVOPROST 72336940876 Active CRYSTAL Suarez Active LANTUS 100 UNIT/ML SOLN 60 units sq q hs INSULIN GLARGINE 59580807587 No Longer Active CRYSTAL Suarez Active ALBUTEROL SULFATE (2.5 MG/3ML) 0.083% NEBU 1 neb tid and prn cough ALBUTEROL SULFATE (2.5 MG/3ML) 0.083% NEBU 374676 ALBUTEROL SULFATE Inactive ZYPREXA 15 MG TABS Take 1 tablet by mouth daily ZYPREXA 15 MG TABS 835691 OLANZAPINE Inactive VERAPAMIL HCL CR 120 MG TAB CR 1 qPM VERAPAMIL HCL CR 120 MG TAB CR VERAPAMIL HCL Inactive ZYPREXA 10 MG TABS Take one by mouth daily ZYPREXA 10 MG TABS 777770 OLANZAPINE Inactive TOPROL XL 100 MG [id number] 1 @ HS TOPROL XL 100 MG [id number]-QDN METOPROLOL SUCCINATE Inactive LEVEMIR 100 UNIT/ML SOLN 90 units SQ qHS LEVEMIR 100 UNIT/ML SOLN INSULIN DETEMIR Inactive PROMETHAZINE-CODEINE 6.25-10 MG/5ML SYRP 1 tsp po q 6 hours prn cough PROMETHAZINE-CODEINE 6.25-10 MG/5ML SYRP 887785 PROMETHAZINE- CODEINE Inactive GUAIFENESIN 600 MG [id number]-IFE 1 tablet by mouth twice daily if needed for cough GUAIFENESIN 600 MG NE85K-WEE GUAIFENESIN Inactive ALBUTEROL SULFATE 0.083 % NEBU SOLN one vial per nebulizer TID and PRN cough/ soa ALBUTEROL SULFATE 0.083 % NEBU SOLN 230601 ALBUTEROL SULFATE Inactive ZYPREXA 5 MG TABS take one tablet by mouth every evening ZYPREXA 5 MG TABS 220823 OLANZAPINE Inactive HYDROCODONE-ACETAMINOPHEN 5-325 MG TABS take one tablet by mouth every four hours as needed for pain HYDROCODONE-ACETAMINOPHEN 5-325 MG TABS 058278 HYDROCODONE-ACETAMINOPHEN Inactive BACTROBAN 2 % CREAM apply to ear and nose twice daily BACTROBAN 2 % CREAM 919919 MUPIROCIN CALCIUM Inactive CYCLOBENZAPRINE HCL 10 MG TABS 1/2 tablet by mouth every 8 hours as needed for muscle spasms CYCLOBENZAPRINE HCL 10 MG TABS 554221 CYCLOBENZAPRINE HCL Inactive NAVANE 10 MG CAPS 1/2 tablet twice a day NAVANE 10 MG CAPS THIOTHIXENE Inactive DOXEPIN HCL 10 MG CAPS Take 1 tablet by mouth daily DOXEPIN HCL 10 MG CAPS 4834883 DOXEPIN HCL Inactive HYDROCODONE-ACETAMINOPHEN 7.5-325 MG TABS 1 four times a day as needed for pain HYDROCODONE-ACETAMINOPHEN 7.5-325 MG TABS 219106 HYDROCODONE-ACETAMINOPHEN Inactive NIACIN CR 500 MG CR-TABS 2 qHS NIACIN CR 500 MG CR- TABS NIACIN Inactive ORPHENADRINE CITRATE ER 100 MG [id number] 1 every 12 hr. as needed ORPHENADRINE CITRATE ER 100 MG [id number] ORPHENADRINE CITRATE Inactive ACETAMINOPHEN 500 MG TABS 2 Q 6 hr. PRN ACETAMINOPHEN 500 MG TABS 585415 ACETAMINOPHEN Inactive SAPHRIS 5 MG SUBL by mouth twice a day SAPHRIS 5 MG SUBL ASENAPINE MALEATE Inactive NIACIN ER 500 MG CR-TABS 4 qHS (for triglycerides) NIACIN ER 500 MG CR-TABS NIACIN Inactive IBUPROFEN 200 MG TABS 1 Q 6 hr. PRN IBUPROFEN 200 MG TABS 053136 IBUPROFEN Inactive FLUTICASONE PROPIONATE 50 MCG/ACT SUSP 2 sprays each nostril qDay x 30 days FLUTICASONE PROPIONATE 50 MCG/ACT SUSP 409564 FLUTICASONE PROPIONATE Inactive EQL TRUETEST TEST STRP Test blood sugar TID EQL TRUETEST TEST STRP GLUCOSE BLOOD Inactive TERESE CONTOUR TEST STRP monitor blood sugars 3x/day TERESE CONTOUR TEST STRP GLUCOSE BLOOD Inactive DETROL LA 4 MG [id number] Take 1 tablet by mouth daily DETROL LA 4 MG [id number]-DMR TOLTERODINE TARTRATE Inactive ZYPREXA 7.5 MG TABS 1 at HS ZYPREXA 7.5 MG TABS 542394 OLANZAPINE Inactive THIOTHIXENE 5 MG CAPS by mouth twice a day THIOTHIXENE 5 MG CAPS 645250 THIOTHIXENE Inactive UROXATRAL 10 MG EJ80X-HBV Take 1 tablet by mouth daily UROXATRAL 10 MG EG20J-ELB ALFUZOSIN HCL Inactive CEFDINIR 300 MG CAPS by mouth twice a day CEFDINIR 300 MG CAPS 151341 CEFDINIR Inactive AZITHROMYCIN 500 MG SOLR 1 po q day AZITHROMYCIN 500 MG SOLR 380696 AZITHROMYCIN Inactive AMOXICILLIN 500 MG CAPS 2 po BID x 10 days AMOXICILLIN 500 MG CAPS 369122 AMOXICILLIN Inactive Immunizations Vaccine Administration Date Value [...] Fluvirin, Fluarix, Agriflu(>=18 yo)) Fluzone (>3 yrs.) [[id number]] Influenza, seasonal, injectable pneumococcal immunization administered Pneumovax [...] HGBA1C - Chemistry sodium, serum 130 mmol/L 628-648 5574/06/09 potassium, serum 4.0 mmol/L 3.5-5.2 chloride, serum [...] 6.0 mg/dL 2.6-7.2 sodium, serum 130 mmol/L 252-722 3062/05/01 potassium, serum 5.2 mmol/L 3.5-5.2 chloride, serum [...] 0.40 mg/dL 0.00-1.00 cholesterol, serum 151 mg/dL 022-437 8105/05/01 triglyceride, serum, fasting 356 mg/dL 30-200 HDL [...] Panel - Chemistry sodium, serum 127 mmol/L 405-560 2423/10/27 potassium, serum 4.1 mmol/L 3.5-5.2 chloride, serum [...] HGBA1C - Chemistry sodium, serum 126 mmol/L 909-235 1929/02/26 potassium, serum 4.8 mmol/L 3.5-5.2 chloride, serum [...] mg/dL Encounters Code Encounter Date Provider Facility CPT-26468 Level 3 Est. Patient 09:32:11 CDT Marvel [facility] [place]-61200 Level 3 Est. Patient 12:02:49 CDT Alina Castaneda MD [facility]-40323 Level 3 Est. Patient 19:17:33 CDT Alina Castaneda MD [facility] [place] Level 3 Est. Patient 13:19:10 CDT [facility] [place]-52025 Level 3 Est. Patient 08:20:05 CDT Alina Castaneda MD [facility] [place]857 Level 3 Est. Patient 15:17:18 CDT Alina Castaneda MD [facility] [place]47226 Level 3 Est. Patient 14:25:36 [employer] [facility] Level 3 Est. 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 Patient 21:28:43 CDT Alina Castaneda MD [facility]-23053 Level 3 Est. Patient 15:20:11 [facility] 4 Est[facility] Patient 19:08:12 CDT Alina Castaneda MD PhD [facility]38223 Level 3 Est. Patient 15:06:39 [facility] Level 4 Est. Patient 17:48:15 CDT Alina Castaneda MD [facility] [place]51130 Level 3 Est. Patient 14:53:49 CDT Alina Castaneda MD [facility]-04621 Level 3 Est. Patient 09:35:16 CDT Alina Castaneda MD [facility]-40594 Level 3 Est. Patient 12:23:22 CDT Alina Castaneda MD [facility] [place]61983 Level 3 Est. Patient 16:19:15 CDT Alina Castaneda MD [facility]-70607 Level 3 Est. 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 Patient 14:12:56 PROMOTIONS ASSISTANT SALES MARKETING Alina Castaneda MD [facility]-89648 Level 2 Est. Patient 15:34:57 PROMOTIONS ASSISTANT SALES MARKETING Alina Castaneda MD [facility]-03342 Level 3 Est. Patient 12:17:04 PROMOTIONS ASSISTANT SALES MARKETING Alina Castaneda MD [facility]-78878 Level 3 Est. Patient 09:18:18 PROMOTIONS ASSISTANT SALES MARKETING Marvel [facility] [place]-32713 Level 2 Est. Patient 21:50:24 CDT Alina Castaneda MD [facility]-11785 Level 3 Est. Patient 09:17:28 CDT Marvel [facility] [place]-79381 Level 4 Est. Patient 18:54:02 CDT Alina Castaneda MD [facility]-18500 Level 3 Est. Patient 10:47:10 CDT Alina Castaneda MD [facility] [place]69451 Level 3 Est. Patient 09:22:20 CDT Marvel [facility] [place]-08980 Level 3 Est. [facility] 16:39:43 [facility] CPT-24263 Level 3 Est. Patient 16:05:16 CDT Alina Castaneda MD [facility]-06841 Level 3 Est. Patient 00:29:15 CDT Alina Castaneda MD [facility]-20227 Level 3 Est. Patient 10:49:22 PROMOTIONS ASSISTANT [employer] MARKETING Marvel Araceli [facility] CPT-21012 Level 3 Est. Patient 21:30:19 PROMOTIONS ASSISTANT SALES MARKETING Alina Castaneda MD [facility] CPT-40314 Level 4 Est. Patient 17:04:11 PROMOTIONS ASSISTANT SALES MARKETING [facility]PT-10471 Level 3 Est. Patient 15:34:11 PROMOTIONS ASSISTANT SALES MARKETING [facility] CPT-53926 Level 2 Est. Patient 12:51:58 PROMOTIONS ASSISTANT SALES MARKETING Alina Castaneda MD [facility]-38649 Level 3 Est. Patient 13:20:01 PROMOTIONS ASSISTANT SALES MARKETING Alina Castaneda MD [facility]-20469 Level 3 Est. Patient 09:23:35 CDT Alina Castaneda MD [facility] Procedures Code Procedure Name Date Entry Date Standard Description CPT-G0008 Administration of Influenza Virus Vaccine 13:05:26 CDT CPT-63471 Fluzone Quadrivalent Intramuscular Suspension 0.5 ML 13: 05:26 CDT CPT-91293 Administration single or combination vaccine inc oral 11 :49:51 CDT CPT-08405 Pneumovax 11:49:51 CDT CPT-40838 Ribs unilateral 2V 12:37:22 [employer] CPT-24817 Chest 2V Frontal and Lat 17:15:26 CDT CPT-94346 Abx/Therapy Injection 18:54:02 CDT CPT-J0696 Rocephin 1000 mg (Ceftriaxone) 16:00:32 CDT CPT-88202 Chest 2V Frontal and Lat 15:26:45 CDT CPT-79974 Chest 2V Frontal and Lat 10:23:27 CDT CPT-83038 Venipuncture Draw Fee 10:11:00 CDT CPT-62735 Administration single or combination vaccine inc oral 11 :56:38 CDT CPT-00327 Influenza split virus > age 3 11:56:38 CDT CPT-70622 Venipuncture Draw Fee 08:49:54 [employer] CPT-30979 EKG Trac and Interp 17:54:19 [employer]
--- OUTSIDE RECORDS SUMMARY | 2018-07-02 20:52 | XMS REPORT | Clinical Summary ---
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 Active Alina Castaneda MD PhD Recurrent isolated sleep paralysis SPECIAL SCREENING FOR MALIGNANT NEOPLASM OF PROSTATE V76.44 Resolved Alina Castaneda MD PhD Screening for malignant neoplasms of prostate Hypoglycemia 251.2 Active Marvel MARROQUIN Hypoglycemia, unspecified Diabetes mellitus, type II 250.00 Active Zaineh 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 [employer]MICAL ENGINEERING INTERN Diabetes mellitus without mention of complication, type II or unspecified type, not stated as uncontrolled WOUND, OPEN, NOSE ICD-873.20 Inactive Alina Castaneda MD PhD DIABETES, TYPE 2 ICD-250.00 Inactive Alina Castaneda MD PhD HYPERTENSION ICD-401.9 Inactive Alina Castaneda MD PhD URI ICD-465.9 Inactive Alina Castaneda MD PhD CHEST PAIN ICD-786.50 Inactive Alina Castaneda MD PhD FATIGUE [...] PhD FH STROKE ICD-V17.1 Inactive Marvel MARROQUIN PNEUMONIA, ORGANISM UNSPECIFIED ICD-486 Roro Castaneda MD PhD RIB PAIN, RIGHT SIDED ICD-786.50 Roro Castaneda MD PhD DIABETIC HYPOGLYCEMIA, TYPE II ICD-250.80 Inactive Marvel 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 Roro Castaneda MD PhD SKIN LESION ICD-709.9 Roro Castaneda MD PhD SPECIAL SCREENING FOR MALIGNANT NEOPLASM OF PROSTATE ICD-V76.44 Roro Castaneda MD PhD SINUSITIS, ACUTE ICD-461.9 Roro Castaneda MD PhD Medication List Medication Instructions Start Date Stop Date Generic Name NDC Status Provider Patient Instruction MORPHINE SULFATE 30 MG TABS 1 pill by mouth nightly, for pain MORPHINE SULFATE 73482071171 Active Alina Castaneda MD PhD Active LATUDA 80 MG TABS 1 tab by mouth every evening LURASIDONE HCL 30675985270 Active Alina Castaneda MD PhD Active UROXATRAL 10 MG [id number] Take 1 tablet by mouth daily ALFUZOSIN HCL 23576054751 No Longer Active Alina Castaneda MD PhD Active THIOTHIXENE 5 MG CAPS by mouth twice a day THIOTHIXENE 91174325457 No Longer Active Alina Castaneda MD PhD Active ZYPREXA 7.5 MG TABS 1 at HS OLANZAPINE 20421392854 No Longer Active Alina Castaneda MD PhD Active HUMALOG 100 UNIT/ML SOLN Take 20 units with breakfast, 10u with lunch and suppetr. INSULIN LISPRO (HUMAN) 02765395004 Active Maliheh Ziglari CHEMICAL ENGINEERING INTERN Active LEVEMIR 100 UNIT/ML SOLN Take 70 u at 7-8pm INSULIN DETEMIR 40831860291 Active Maliheh Ziglari CHEM[employer] ENGINEERING INTERN Active BD INSULIN SYRINGE 28G X 1/2" 1 ML MISC 1 four times per day INSULIN SYRINGE-NEEDLE U-100 90840541063 Active Maliheh Ziglari CHEMICAL ENGINEERING INTERN Active CYCLOBENZAPRINE HCL 10 MG TABS 1 tablet by mouth three times daily, scheduled CYCLOBENZAPRINE HCL 83978410125 Active Alina Castaneda MD PhD Active TOLTERODINE TARTRATE 2 MG TABS 1 pill twice daily, for bladder TOLTERODINE TARTRATE 67925102256 Active Alina Castaneda MD PhD Active DETROL LA 4 MG [id number]-WIZ Take 1 tablet by mouth daily TOLTERODINE TARTRATE 85838763135 No Longer Active Alina Castaneda MD PhD Active HYDROCODONE-ACETAMINOPHEN 5-325 MG TABS 2 tabs by mouth three times daily as needed for pain HYDROCODONE-ACETAMINOPHEN 01036644273 Active Alina Castaneda MD PhD Active TERESE CONTOUR TEST STRP monitor blood sugars 3x/day GLUCOSE BLOOD 09931316733 No Longer Active Alina Castaneda MD PhD Active EQL TRUETEST TEST STRP Test blood sugar TID GLUCOSE BLOOD 20836761825 No Longer Active Alina Castaneda MD PhD Active FLUTICASONE PROPIONATE 50 MCG/ACT SUSP 2 sprays each nostril qDay x 30 days FLUTICASONE PROPIONATE 71483499542 No Longer Active Alina Castaneda MD PhD Active IBUPROFEN 200 MG TABS 1 Q 6 hr. PRN IBUPROFEN 45848493535 No Longer Active Alina Castaneda MD PhD Active NIACIN ER 500 MG CR-TABS 4 qHS (for triglycerides) NIACIN 40229343140 No Longer Active Alina Castaneda MD PhD Active TRUETEST TEST STRP check sugars 4x/day GLUCOSE BLOOD 82639481890 Active Alina Castaneda MD PhD Active ALFUZOSIN HCL ER 10 MG [id number] 1 tablet daily ALFUZOSIN HCL 47547321688 Active Vanessa Hickey MD Active CLONAZEPAM 1 MG TABS 1 pill by mouth three times daily CLONAZEPAM 22674627188 Active Alina Castaneda MD PhD Active LOVAZA 1 GM CAPS 4 daily (for triglycerides) OSBTU-6-MYLI ETHYL ESTERS 80753229180 Active Alina Castaneda MD PhD Active SAPHRIS 5 MG SUBL by mouth twice a day ASENAPINE MALEATE 88700384309 No Longer Active Maljohn Mackenzieglari CHEMICAL ENGINEERING INTERN Active ACETAMINOPHEN 500 MG TABS 2 Q 6 hr. PRN ACETAMINOPHEN 85986213166 No Longer Active Maliheh Ziglari CHEMICAL ENGINEERING INTERN Active VERAPAMIL HCL ER 120 MG [id number]-XEN 1 pill by mouth twice a day, for headache prevention/control VERAPAMIL HCL 16295442059 Active Alina Castaneda MD PhD Active ORPHENADRINE CITRATE ER 100 MG [id number] 1 every 12 hr. as needed ORPHENADRINE CITRATE 98300675790 No Longer Active Alina Castaneda MD PhD Active NIACIN CR 500 MG CR-TABS 2 qHS NIACIN 78695785560 No Longer Active Alina Castaneda MD PhD Active AMOXICILLIN 500 MG CAPS 2 po BID x 10 days AMOXICILLIN 09534207353 No Longer Active Alina Castaneda MD PhD Active HYDROCODONE-ACETAMINOPHEN 7.5-325 MG TABS 1 four times a day as needed for pain HYDROCODONE-ACETAMINOPHEN 57813673469 No Longer Active Alina Castaneda MD PhD Active METFORMIN HCL ER 500 MG US01G-ZSS Take three tablets by mouth everyday METFORMIN HCL 79715153609 Active Alina Castaneda MD PhD Active DOXEPIN HCL 10 MG CAPS Take 1 tablet by mouth daily DOXEPIN HCL 98138166846 No Longer Active Salina Han A Active NAVANE 10 MG CAPS 1/2 tablet twice a day THIOTHIXENE No Longer Active Salina Han [facility] Active CYCLOBENZAPRINE HCL 10 MG TABS 1/2 tablet by mouth every 8 hours as needed for muscle spasms CYCLOBENZAPRINE HCL 40223859776 No Longer Active Alina Castaneda MD PhD Active BACTROBAN 2 % CREAM apply to ear and nose twice daily MUPIROCIN CALCIUM 03317429211 No Longer Active Alina Castaneda MD PhD Active HYDROCODONE-ACETAMINOPHEN 5-325 MG TABS take one tablet by mouth every four hours as needed for pain HYDROCODONE-ACETAMINOPHEN 72807829485 No Longer Active Alina Castaneda MD PhD Active ZOLPIDEM TARTRATE 10 MG TABS take at bedtime ZOLPIDEM TARTRATE 27891071816 Active Alina Castaneda MD PhD Active ZYPREXA 5 MG TABS take one tablet by mouth every evening OLANZAPINE 98167503022 No Longer Active Alina Castaneda MD PhD Active ALBUTEROL SULFATE 0.083 % NEBU SOLN one vial per nebulizer TID and PRN cough/ soa ALBUTEROL SULFATE 35994693934 No Longer Active Alina Castaneda MD PhD Active GUAIFENESIN 600 MG [id number]-BFU 1 tablet by mouth twice daily if needed for cough GUAIFENESIN 90184727394 No Longer Active Marvel MARROQUIN Active AZITHROMYCIN 500 MG SOLR 1 po q day AZITHROMYCIN 38654907261 No Longer Active Alina Castaneda MD PhD Active METOPROLOL SUCCINATE 100 MG JZ89M-YPV 1 by mouth daily for blood pressure METOPROLOL SUCCINATE 70931523931 Active Alina Catsaneda MD PhD Active PROMETHAZINE-CODEINE 6.25-10 MG/5ML SYRP 1 tsp po q 6 hours prn cough PROMETHAZINE-CODEINE 71946239991 No Longer Active Alina Castaneda MD PhD Active CEFDINIR 300 MG CAPS by mouth twice a day CEFDINIR 35946825901 No Longer Active Alina Castaneda MD PhD Active METFORMIN HCL 500 MG SQ49E-KZD Take 3 tablets by mouth everyday METFORMIN HCL 46671243983 No Longer Active Alina Castaneda MD PhD Active LEVEMIR 100 UNIT/ML SOLN 90 units SQ qHS INSULIN DETEMIR 26746060709 No Longer Active Marvel MARROQUIN Active TOPROL XL 100 MG BT36X-OEB 1 @ HS METOPROLOL SUCCINATE 53754880773 No Longer Active Marvel MARROQUIN Active ALLOPURINOL 300 MG TABS Take one by mouth daily ALLOPURINOL 84387050022 Active Alina Castaneda MD PhD Active ZYPREXA 10 MG TABS Take one by mouth daily OLANZAPINE 93132089893 No Longer Active Alina Castaneda MD PhD Active NOVOLOG 100 UNIT/ML SOLN 40 units with every meal INSULIN ASPART 28317262438 No Longer Active Alina Castaneda MD PhD Active VERAPAMIL HCL CR 120 MG TAB CR 1 qPM VERAPAMIL HCL 38364594008 No Longer Active Salina Han [facility] Active ZYPREXA 15 MG TABS Take 1 tablet by mouth daily OLANZAPINE 81939495959 No Longer Active Marvel MARROQUIN Active LISINOPRIL 20 MG TABS 1 BID LISINOPRIL 38141633927 Active Alina Castaneda MD PhD Active ALBUTEROL SULFATE (2.5 MG/3ML) 0.083% NEBU 1 neb tid and prn cough ALBUTEROL SULFATE 36030578477 No Longer Active Alina Castaneda MD PhD Active FLUVOXAMINE MALEATE 100 MG TABS Take one (1) tablet by mouth am, 05/25 at noon, 1 pm FLUVOXAMINE MALEATE 87876769971 Active Alina Castaneda MD PhD Active TRAVATAN Z 0.004 % SOLN 1 gtt each eye daily TRAVOPROST 41672756585 Active CRYSTAL Suarez Active LANTUS 100 UNIT/ML SOLN 60 units sq q hs INSULIN GLARGINE 68711047158 No Longer Active CRYSTAL Suarez Active ALBUTEROL SULFATE (2.5 MG/3ML) 0.083% NEBU 1 neb tid and prn cough ALBUTEROL SULFATE (2.5 MG/3ML) 0.083% NEBU 539041 ALBUTEROL SULFATE Inactive ZYPREXA 15 MG TABS Take 1 tablet by mouth daily ZYPREXA 15 MG TABS 592337 OLANZAPINE Inactive VERAPAMIL HCL CR 120 MG TAB CR 1 qPM VERAPAMIL HCL CR 120 MG TAB CR VERAPAMIL HCL Inactive ZYPREXA 10 MG TABS Take one by mouth daily ZYPREXA 10 MG TABS 856291 OLANZAPINE Inactive TOPROL XL 100 MG [id number]-ILY 1 @ HS TOPROL XL 100 MG AX48E-DIG METOPROLOL SUCCINATE Inactive LEVEMIR 100 UNIT/ML SOLN 90 units SQ qHS LEVEMIR 100 UNIT/ML SOLN INSULIN DETEMIR Inactive PROMETHAZINE-CODEINE 6.25-10 MG/5ML SYRP 1 tsp po q 6 hours prn cough PROMETHAZINE-CODEINE 6.25-10 MG/5ML SYRP 850323 PROMETHAZINE- CODEINE Inactive GUAIFENESIN 600 MG SI70O-YED 1 tablet by mouth twice daily if needed for cough GUAIFENESIN 600 MG LY73R-NWY GUAIFENESIN Inactive ALBUTEROL SULFATE 0.083 % NEBU SOLN one vial per nebulizer TID and PRN cough/ soa ALBUTEROL SULFATE 0.083 % [facility] 362050 ALBUTEROL SULFATE Inactive ZYPREXA 5 MG TABS take one tablet by mouth every evening ZYPREXA 5 MG TABS 624750 OLANZAPINE Inactive HYDROCODONE-ACETAMINOPHEN 5-325 MG TABS take one tablet by mouth every four hours as needed for pain HYDROCODONE-ACETAMINOPHEN 5-325 MG TABS 026349 HYDROCODONE-ACETAMINOPHEN Inactive BACTROBAN 2 % CREAM apply to ear and nose twice daily BACTROBAN 2 % CREAM 416137 MUPIROCIN CALCIUM Inactive CYCLOBENZAPRINE HCL 10 MG TABS 1/2 tablet by mouth every 8 hours as needed for muscle spasms CYCLOBENZAPRINE HCL 10 MG TABS 716636 CYCLOBENZAPRINE HCL Inactive NAVANE 10 MG CAPS 1/2 tablet twice a day NAVANE 10 MG CAPS THIOTHIXENE Inactive DOXEPIN HCL 10 MG CAPS Take 1 tablet by mouth daily DOXEPIN HCL 10 MG CAPS 4000006 DOXEPIN HCL Inactive HYDROCODONE-ACETAMINOPHEN 7.5-325 MG TABS 1 four times a day as needed for pain HYDROCODONE-ACETAMINOPHEN 7.5-325 MG TABS 173641 HYDROCODONE-ACETAMINOPHEN Inactive NIACIN CR 500 MG CR-TABS 2 qHS NIACIN CR 500 MG CR- TABS NIACIN Inactive ORPHENADRINE CITRATE ER 100 MG [id number] 1 every 12 hr. as needed ORPHENADRINE CITRATE ER 100 MG NQ32L-KCB ORPHENADRINE CITRATE Inactive ACETAMINOPHEN 500 MG TABS 2 Q 6 hr. PRN ACETAMINOPHEN 500 MG TABS 488777 ACETAMINOPHEN Inactive SAPHRIS 5 MG SUBL by mouth twice a day SAPHRIS 5 MG SUBL ASENAPINE MALEATE Inactive NIACIN ER 500 MG CR-TABS 4 qHS (for triglycerides) NIACIN ER 500 MG CR-TABS NIACIN Inactive IBUPROFEN 200 MG TABS 1 Q 6 hr. PRN IBUPROFEN 200 MG TABS 375296 IBUPROFEN Inactive FLUTICASONE PROPIONATE 50 MCG/ACT SUSP 2 sprays each nostril qDay x 30 days FLUTICASONE PROPIONATE 50 MCG/ACT SUSP 120964 FLUTICASONE PROPIONATE Inactive EQL TRUETEST TEST STRP Test blood sugar TID EQL TRUETEST TEST STRP GLUCOSE BLOOD Inactive TERESE CONTOUR TEST STRP monitor blood sugars 3x/day TERESE CONTOUR TEST STRP GLUCOSE BLOOD Inactive DETROL LA 4 MG [id number] Take 1 tablet by mouth daily DETROL LA 4 MG CS52R-SPY TOLTERODINE TARTRATE Inactive ZYPREXA 7.5 MG TABS 1 at HS ZYPREXA 7.5 MG TABS 916542 OLANZAPINE Inactive THIOTHIXENE 5 MG CAPS by mouth twice a day THIOTHIXENE 5 MG CAPS 088906 THIOTHIXENE Inactive UROXATRAL 10 MG TI42L-ZHX Take 1 tablet by mouth daily UROXATRAL 10 MG MH77R-OLN ALFUZOSIN HCL Inactive CEFDINIR 300 MG CAPS by mouth twice a day CEFDINIR 300 MG CAPS 853652 CEFDINIR Inactive AZITHROMYCIN 500 MG SOLR 1 po q day AZITHROMYCIN 500 MG SOLR 154361 AZITHROMYCIN Inactive AMOXICILLIN 500 MG CAPS 2 po BID x 10 days AMOXICILLIN 500 MG CAPS 248326 AMOXICILLIN Inactive Immunizations Vaccine Administration Date Value [...] Fluvirin, Fluarix, Agriflu(>=18 yo)) Fluzone (>3 yrs.) [SYL081] Influenza, seasonal, injectable pneumococcal immunization administered Pneumovax [...] HGBA1C - Chemistry sodium, serum 130 mmol/L 516-175 3076/06/09 potassium, serum 4.0 mmol/L 3.5-5.2 chloride, serum [...] 6.0 mg/dL 2.6-7.2 sodium, serum 130 mmol/L 420-817 7688/05/01 potassium, serum 5.2 mmol/L 3.5-5.2 chloride, serum [...] 0.40 mg/dL 0.00-1.00 cholesterol, serum 151 mg/dL 070-161 5343/05/01 triglyceride, serum, fasting 356 mg/dL 30-200 HDL [...] HGBA1C - Chemistry sodium, serum 126 mmol/L 650-490 6479/02/26 potassium, serum 4.8 mmol/L 3.5-5.2 chloride, serum [...] mg/dL Encounters Code Encounter Date Provider Facility CPT-24676 Level 3 Est. Patient 09:32:11 CDT Maliheh Ziglari [facility]-15286 Level 3 Est. Patient 12:02:49 CDT Alina Castaneda MD [facility]-11596 Level 3 Est. Patient 19:17:33 CDT Alina Castaneda MD [facility]-38730 Level 3 Est. Patient 13:19:10 CDT Marvel Charles [facility]-42373 Level 3 Est. Patient 08:20:05 CDT Alina Castaneda MD [facility]35897 Level 3 Est. Patient 15:17:18 CDT Alina Castaneda MD [facility] [place]83269 Level 3 Est. Patient 14:25:36 [facility]-61803 Level 3 Est. Patient 10:09:15 PROCESS COORDINATOR Marvel Charles [facility]-37921 Level 3 Est. Patient 21:28:43 CDT Alina Castaneda MD [facility]-82271 Level 3 Est. Patient 15:20:11 CDT Marvel Thurstonestela [facility]-66401 Level 4 Est. Patient 19:08:12 CDT Alina Castaneda MD [facility]-99543 Level 3 Est. Patient 15:06:39 CDT Marvel Gurdeepajayestela [facility]-50968 Level 4 Est. Patient 17:48:15 CDT Alina Castaneda MD [facility] [place]84348 Level 3 Est. Patient 14:53:49 CDT Alina Castaneda MD [facility]-88010 Level 3 Est. Patient 09:35:16 CDT Alina Castaneda MD [facility]-21193 Level 3 Est. Patient 12:23:22 CDT Alina Castaneda MD [facility] [place]50544 Level 3 Est. Patient 16:19:15 CDT Alina Castaneda MD [facility]50711 Level 3 Est. Patient 21:39:56 PROCESS COORDINATOR Alina Castaneda MD [facility]72427 Level 4 Est. Patient 14:12:56 PROCESS COORDINATOR Alina Castaneda MD [facility]90453 Level 2 Est. Patient 15:34:57 PROCESS COORDINATOR Alina Castaneda MD [facility]-69579 Level 3 Est. Patient 12:17:04 PROCESS COORDINATOR Alina Castaneda MD [facility]-66724 Level 3 Est. Patient 09:18:18 PROCESS COORDINATOR Marvel Charles [facility]-90049 Level 2 Est. Patient 21:50:24 CDT Alina Castaneda MD [facility] [place]63 Level 3 Est. Patient 09:17:28 CDT Marvel Charles [facility]-62673 Level 4 Est. Patient 18:54:02 CDT Alina Castaneda MD [facility]-17247 Level 3 Est. Patient 10:47:10 CDT Alina Castaneda MD [facility]56283 Level 3 Est. Patient 09:22:20 CDT Marvel Charles [facility] [place] Level 3 Est. Patient 16:39:43 CDT Marvel Charles [facility]-57054 Level 3 Est. Patient 16:05:16 CDT Alina Castaneda MD [facility] CPT-73719 Level 3 Est. Patient 00:29:15 CDT Alina Castaneda MD [facility] CPT-89170 Level 3 Est. Patient 10:49:22 [facility] CPT-46244 Level 3 Est. Patient 21:30:19 PROCESS COORDINATOR Alina Castaneda MD [facility] CPT-42454 Level 4 Est. Patient 17:04:11 PROCESS COORDINATOR [facility] [place]45417 Level 3 Est. Patient 15:34:11 PROCESS COORDINATOR [facility] Level 2 Est. Patient 12:51:58 PROCESS COORDINATOR Alina Castaneda MD [facility] CPT-35537 Level 3 Est. Patient 13:20:01 PROCESS COORDINATOR Alina Castaneda MD [facility] CPT-46680 Level 3 Est. Patient 09:23:35 CDT Alina Castaneda MD [facility] Procedures Code Procedure Name Date Entry Date Standard Description CPT-G0008 Administration of Influenza Virus Vaccine 13:05:26 CDT CPT-92400 Fluzone Quadrivalent Intramuscular Suspension 0.5 ML 13: 05:26 CDT CPT-46940 Administration single or combination vaccine inc oral 11 :49:51 CDT CPT-60839 Pneumovax 11:49:51 CDT CPT-09436 Ribs unilateral 2V 12:37:22 PROCESS COORDINATOR CPT-23556 Chest 2V Frontal and Lat 17:15:26 CDT CPT-79908 Abx/Therapy Injection 18:54:02 CDT CPT-J0696 Rocephin 1000 mg (Ceftriaxone) 16:00:32 CDT CPT-12331 Chest 2V Frontal and Lat 15:26:45 CDT CPT-71254 Chest 2V Frontal and Lat 10:23:27 CDT CPT-03516 Venipuncture Draw Fee 10:11:00 CDT CPT-53153 Administration single or combination vaccine inc oral 11 :56:38 CDT CPT-46101 Influenza split virus > age 3 11:56:38 CDT CPT-69469 Venipuncture Draw Fee 08:49:54 PROCESS COORDINATOR CPT-07267 EKG Trac and Interp 17:54:19 PROCESS COORDINATOR
--- OUTSIDE RECORDS SUMMARY | 2018-07-02 20:54 | XMS REPORT | Clinical Summary ---
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 Alina Castaneda MD PhD Recurrent isolated sleep paralysis SPECIAL SCREENING FOR MALIGNANT NEOPLASM OF PROSTATE V76.44 Resolved Alina Castaneda MD PhD Screening for malignant neoplasms of prostate Hypoglycemia 251.2 Resolved Alina Castaneda MD PhD Hypoglycemia, unspecified Diabetes mellitus, type II 250.00 Active Mallashondaeh Bertrandari [employer] Diabetes mellitus without mention of complication, type [...] mouth three times daily PENICILLIN V POTASSIUM 17721433267 Active Alina Castaneda MD PhD Active MORPHINE SULFATE 30 MG TABS 1 pill by mouth nightly, for pain MORPHINE SULFATE 31821335671 Active Rhett Luther DO Active LATUDA 80 MG TABS 1 tab by mouth every evening LURASIDONE HCL 54395808993 Active Alina Castaneda MD PhD Active UROXATRAL 10 MG [id number] Take 1 tablet by mouth daily ALFUZOSIN HCL 97183561419 No Longer Active Alina Castaneda MD PhD Active THIOTHIXENE 5 MG CAPS by mouth twice a day THIOTHIXENE 75364431260 No Longer Active Alina Castaneda MD PhD Active ZYPREXA 7.5 MG TABS 1 at HS OLANZAPINE 96078654553 No Longer Active Alina Castaneda MD PhD Active HUMALOG 100 UNIT/ML SOLN Take 20 units with breakfast, 10u with lunch and suppetr. INSULIN LISPRO (HUMAN) 10833715271 Active Maliheh Ziglari [employer] Active LEVEMIR 100 UNIT/ML SOLN Take 70 u at 7-8pm INSULIN DETEMIR 26384059338 Active Maliheh Ziglari [employer] Active BD INSULIN SYRINGE 28G X 1/2" 1 ML MISC 1 four times per day INSULIN SYRINGE-NEEDLE U-100 24230853112 Active Maliheh Ziglari [employer] Active CYCLOBENZAPRINE HCL 10 MG TABS 1 tablet by mouth three times daily, scheduled CYCLOBENZAPRINE HCL 52590813069 Active Alina Castaneda MD PhD Active TOLTERODINE TARTRATE 2 MG TABS 1 pill twice daily, for bladder TOLTERODINE TARTRATE 41364366261 Active Alina Castaneda MD PhD Active DETROL LA 4 MG [id number] Take 1 tablet by mouth daily TOLTERODINE TARTRATE 68882009285 No Longer Active Alina Castaneda MD PhD Active HYDROCODONE-ACETAMINOPHEN 5-325 MG TABS 2 tabs by mouth three times daily as needed for pain HYDROCODONE-ACETAMINOPHEN 92460895308 Active Rhett Luther DO Active TERESE CONTOUR TEST STRP monitor blood sugars 3x/day GLUCOSE BLOOD 30848065743 No Longer Active Alina Castaneda MD PhD Active EQL TRUETEST TEST STRP Test blood sugar TID GLUCOSE BLOOD 95123233063 No Longer Active Alina Castaneda MD PhD Active FLUTICASONE PROPIONATE 50 MCG/ACT SUSP 2 sprays each nostril qDay x 30 days FLUTICASONE PROPIONATE 37143261265 No Longer Active Alina Castaneda MD PhD Active IBUPROFEN 200 MG TABS 1 Q 6 hr. PRN IBUPROFEN 83663031861 No Longer Active Alina Castaneda MD PhD Active NIACIN ER 500 MG CR-TABS 4 qHS (for triglycerides) NIACIN 42750546409 No Longer Active Alina Castaneda MD PhD Active TRUETEST TEST STRP check sugars 4x/day GLUCOSE BLOOD 24049486885 Active Marvel MARROQUIN Active ALFUZOSIN HCL ER 10 MG [id number]-[id number] 1 tablet daily ALFUZOSIN HCL 82126435140 Active Vanessa Hickey MD Active CLONAZEPAM 1 MG TABS 1 pill by mouth three times daily CLONAZEPAM 42035018696 Active Alina Castaneda MD PhD Active LOVAZA 1 GM CAPS 4 daily (for triglycerides) [id number] ETHYL ESTERS 32991450858 Active Alina Castaneda MD PhD Active SAPHRIS 5 MG SUBL by mouth twice a day ASENAPINE MALEATE 62126832374 No Longer Active Marvel Charles [employer] Active ACETAMINOPHEN 500 MG TABS 2 Q 6 hr. PRN ACETAMINOPHEN 10264149949 No Longer Active Mallashondaeh Ziglari [employer] Active VERAPAMIL HCL ER 120 MG [id number] 1 pill by mouth twice a day, for headache prevention/control VERAPAMIL HCL 60005422081 Active Alina Castaneda MD PhD Active ORPHENADRINE CITRATE ER 100 MG MD16N-YIP 1 every 12 hr. as needed ORPHENADRINE CITRATE 96433674983 No Longer Active Alina Castaneda MD PhD Active NIACIN CR 500 MG CR-TABS 2 qHS NIACIN 22936827824 No Longer Active Alina Castaneda MD PhD Active AMOXICILLIN 500 MG CAPS 2 po BID x 10 days AMOXICILLIN 37181735160 No Longer Active Alina Castaneda MD PhD Active HYDROCODONE-ACETAMINOPHEN 7.5-325 MG TABS 1 four times a day as needed for pain HYDROCODONE-ACETAMINOPHEN 58871095856 No Longer Active Alina Castaneda MD PhD Active METFORMIN HCL ER 500 MG JY51M-GMM Take three tablets by mouth everyday METFORMIN HCL 33896542873 Active Alina Castaneda MD PhD Active DOXEPIN HCL 10 MG CAPS Take 1 tablet by mouth daily DOXEPIN HCL 33315319584 No Longer Active Salina Han [facility] Active NAVANE 10 MG CAPS 1/2 tablet twice a day THIOTHIXENE No Longer Active Salina ROBBINS Active CYCLOBENZAPRINE HCL 10 MG TABS 1/2 tablet by mouth every 8 hours as needed for muscle spasms CYCLOBENZAPRINE HCL 29765453877 No Longer Active Alina Castaneda MD PhD Active BACTROBAN 2 % CREAM apply to ear and nose twice daily MUPIROCIN CALCIUM 05889071748 No Longer Active Alina Castaneda MD PhD Active HYDROCODONE-ACETAMINOPHEN 5-325 MG TABS take one tablet by mouth every four hours as needed for pain HYDROCODONE-ACETAMINOPHEN 02591723056 No Longer Active Alina Castaneda MD PhD Active ZOLPIDEM TARTRATE 10 MG TABS take at bedtime ZOLPIDEM TARTRATE 49600554261 Active Alina Castaneda MD PhD Active ZYPREXA 5 MG TABS take one tablet by mouth every evening OLANZAPINE 85693471250 No Longer Active Alina Castaneda MD PhD Active ALBUTEROL SULFATE 0.083 % NEBU SOLN one vial per nebulizer TID and PRN cough/ soa ALBUTEROL SULFATE 92256615108 No Longer Active Alina Castaneda MD PhD Active GUAIFENESIN 600 MG TC75S-XDJ 1 tablet by mouth twice daily if needed for cough GUAIFENESIN 28845613720 No Longer Active Marvel MARROQUIN Active AZITHROMYCIN 500 MG SOLR 1 po q day AZITHROMYCIN 53144433179 No Longer Active Alina Castaneda MD PhD Active METOPROLOL SUCCINATE 100 MG DF37I-MDK 1 by mouth daily for blood pressure METOPROLOL SUCCINATE 19884166801 Active Alina Castaneda MD PhD Active PROMETHAZINE-CODEINE 6.25-10 MG/5ML SYRP 1 tsp po q 6 hours prn cough PROMETHAZINE-CODEINE 27913086772 No Longer Active Alina Castaneda MD PhD Active CEFDINIR 300 MG CAPS by mouth twice a day CEFDINIR 15779523581 No Longer Active Alina Castaneda MD PhD Active METFORMIN HCL 500 MG ER57V-ONT Take 3 tablets by mouth everyday METFORMIN HCL 33939001106 No Longer Active Alina Castaneda MD PhD Active LEVEMIR 100 UNIT/ML SOLN 90 units SQ qHS INSULIN DETEMIR 92185350761 No Longer Active Marvel MARROQUIN Active TOPROL XL 100 MG [id number]-YQS 1 @ HS METOPROLOL SUCCINATE 43403694425 No Longer Active Marvel MARROQUIN Active ALLOPURINOL 300 MG TABS Take one by mouth daily ALLOPURINOL 31794496044 Active Alina Castaneda MD PhD Active ZYPREXA 10 MG TABS Take one by mouth daily OLANZAPINE 56980471552 No Longer Active Alina Castaneda MD PhD Active NOVOLOG 100 UNIT/ML SOLN 40 units with every meal INSULIN ASPART 39499592361 No Longer Active Alina Castaneda MD PhD Active VERAPAMIL HCL CR 120 MG TAB CR 1 qPM VERAPAMIL HCL 07087513113 No Longer Active Salina Emely ROBBINSA Active ZYPREXA 15 MG TABS Take 1 tablet by mouth daily OLANZAPINE 93977747354 No Longer Active Marvel MARROQUIN Active LISINOPRIL 20 MG TABS 1 BID LISINOPRIL 22534408720 Active Alina Castaneda MD PhD Active ALBUTEROL SULFATE (2.5 MG/3ML) 0.083% NEBU 1 neb tid and prn cough ALBUTEROL SULFATE 67368080348 No Longer Active Alina Castaneda MD PhD Active FLUVOXAMINE MALEATE 100 MG TABS Take one (1) tablet by mouth am, 1/2 at noon, 1 pm FLUVOXAMINE MALEATE 04064066422 Active Alina Castaneda MD PhD Active TRAVATAN Z 0.004 % SOLN 1 gtt each eye daily TRAVOPROST 53126209684 Active CRYSTAL Suarez Active LANTUS 100 UNIT/ML SOLN 60 units sq q hs INSULIN GLARGINE 86799089707 No Longer Active CRYSTAL Suarez Active ALBUTEROL SULFATE (2.5 MG/3ML) 0.083% NEBU 1 neb tid and prn cough ALBUTEROL SULFATE (2.5 MG/3ML) 0.083% NEBU 018959 ALBUTEROL SULFATE Inactive ZYPREXA 15 MG TABS Take 1 tablet by mouth daily ZYPREXA 15 MG TABS 823753 OLANZAPINE Inactive VERAPAMIL HCL CR 120 MG TAB CR 1 qPM VERAPAMIL HCL CR 120 MG TAB CR VERAPAMIL HCL Inactive ZYPREXA 10 MG TABS Take one by mouth daily ZYPREXA 10 MG TABS 238531 OLANZAPINE Inactive TOPROL XL 100 MG [id number] 1 @ HS TOPROL XL 100 MG [id number]-URX METOPROLOL SUCCINATE Inactive LEVEMIR 100 UNIT/ML SOLN 90 units SQ qHS LEVEMIR 100 UNIT/ML SOLN INSULIN DETEMIR Inactive PROMETHAZINE-CODEINE 6.25-10 MG/5ML SYRP 1 tsp po q 6 hours prn cough PROMETHAZINE-CODEINE 6.25-10 MG/5ML SYRP 497778 PROMETHAZINE- CODEINE Inactive GUAIFENESIN 600 MG ZB54K-WOS 1 tablet by mouth twice daily if needed for cough GUAIFENESIN 600 MG JR91I-HBN GUAIFENESIN Inactive ALBUTEROL SULFATE 0.083 % NEBU SOLN one vial per nebulizer TID and PRN cough/ soa ALBUTEROL SULFATE 0.083 % NEBU SOLN 579231 ALBUTEROL SULFATE Inactive ZYPREXA 5 MG TABS take one tablet by mouth every evening ZYPREXA 5 MG TABS 710086 OLANZAPINE Inactive HYDROCODONE-ACETAMINOPHEN 5-325 MG TABS take one tablet by mouth every four hours as needed for pain HYDROCODONE-ACETAMINOPHEN 5-325 MG TABS 781439 HYDROCODONE-ACETAMINOPHEN Inactive BACTROBAN 2 % CREAM apply to ear and nose twice daily BACTROBAN 2 % CREAM 615125 MUPIROCIN CALCIUM Inactive CYCLOBENZAPRINE HCL 10 MG TABS 1/2 tablet by mouth every 8 hours as needed for muscle spasms CYCLOBENZAPRINE HCL 10 MG TABS 968243 CYCLOBENZAPRINE HCL Inactive NAVANE 10 MG CAPS 1/2 tablet twice a day NAVANE 10 MG CAPS THIOTHIXENE Inactive DOXEPIN HCL 10 MG CAPS Take 1 tablet by mouth daily DOXEPIN HCL 10 MG CAPS 1153243 DOXEPIN HCL Inactive HYDROCODONE-ACETAMINOPHEN 7.5-325 MG TABS 1 four times a day as needed for pain HYDROCODONE-ACETAMINOPHEN 7.5-325 MG TABS 027700 HYDROCODONE-ACETAMINOPHEN Inactive NIACIN CR 500 MG CR-TABS 2 qHS NIACIN CR 500 MG CR- TABS NIACIN Inactive ORPHENADRINE CITRATE ER 100 MG [id number] 1 every 12 hr. as needed ORPHENADRINE CITRATE ER 100 MG PM43I-BSQ ORPHENADRINE CITRATE Inactive ACETAMINOPHEN 500 MG TABS 2 Q 6 hr. PRN ACETAMINOPHEN 500 MG TABS 789628 ACETAMINOPHEN Inactive SAPHRIS 5 MG SUBL by mouth twice a day SAPHRIS 5 MG SUBL ASENAPINE MALEATE Inactive NIACIN ER 500 MG CR-TABS 4 qHS (for triglycerides) NIACIN ER 500 MG CR-TABS NIACIN Inactive IBUPROFEN 200 MG TABS 1 Q 6 hr. PRN IBUPROFEN 200 MG TABS 916389 IBUPROFEN Inactive FLUTICASONE PROPIONATE 50 MCG/ACT SUSP 2 sprays each nostril qDay x 30 days FLUTICASONE PROPIONATE 50 MCG/ACT SUSP 954148 FLUTICASONE PROPIONATE Inactive EQL TRUETEST TEST STRP Test blood sugar TID EQL TRUETEST TEST STRP GLUCOSE BLOOD Inactive TERESE CONTOUR TEST STRP monitor blood sugars 3x/day TERESE CONTOUR TEST STRP GLUCOSE BLOOD Inactive DETROL LA 4 MG [id number]-ONL Take 1 tablet by mouth daily DETROL LA 4 MG [id number] TOLTERODINE TARTRATE Inactive ZYPREXA 7.5 MG TABS 1 at HS ZYPREXA 7.5 MG TABS 816109 OLANZAPINE Inactive THIOTHIXENE 5 MG CAPS by mouth twice a day THIOTHIXENE 5 MG CAPS 705992 THIOTHIXENE Inactive UROXATRAL 10 MG TV31F-GCB Take 1 tablet by mouth daily UROXATRAL 10 MG VA20W-QKR ALFUZOSIN HCL Inactive CEFDINIR 300 MG CAPS by mouth twice a day CEFDINIR 300 MG CAPS 592622 CEFDINIR Inactive AZITHROMYCIN 500 MG SOLR 1 po q day AZITHROMYCIN 500 MG SOLR 706372 AZITHROMYCIN Inactive AMOXICILLIN 500 MG CAPS 2 po BID x 10 days AMOXICILLIN 500 MG CAPS 834527 AMOXICILLIN Inactive Immunizations Vaccine Administration Date Value [...] Fluvirin, Fluarix, Agriflu(>=18 yo)) Fluzone (>3 yrs.) [[id number]] Influenza, seasonal, injectable pneumococcal immunization administered Pneumovax [...] HGBA1C - Chemistry sodium, serum 130 mmol/L 415-812 4114/06/09 potassium, serum 4.0 mmol/L 3.5-5.2 chloride, serum 92 mmol/L 98-107 carbon dioxide, venous blood 22.1 mmol/L 21.0-32.0 blood glucose 60 mg/dL 65-110 calcium, serum 9.5 mg/dL 8.5-10.1 urea nitrogen, blood 14 mg/dL 7-18 creatinine, serum 1.30 mg/dL 0.60-1.30 hemoglobin A1C, blood, as % of total hemoglobin 6.0 % 4.3-6.0 sodium, serum 131 mmol/L 150-944 8924/12/30 potassium, serum 5.0 mmol/L 3.5-5.2 chloride, serum [...] 6.0 mg/dL 2.6-7.2 sodium, serum 130 mmol/L 018-213 0511/05/01 potassium, serum 5.2 mmol/L 3.5-5.2 chloride, serum [...] 0.40 mg/dL 0.00-1.00 cholesterol, serum 151 mg/dL 941-611 0704/05/01 triglyceride, serum, fasting 356 mg/dL 30-200 HDL [...] Panel - Chemistry sodium, serum 127 mmol/L 400-408 4925/10/27 potassium, serum 4.1 mmol/L 3.5-5.2 chloride, serum [...] mg/dL 0.00-1.00 Lab Report: Comp. Metabolic Panel, [facility] - Chemistry sodium, serum 126 mmol/L 371-086 2448/02/26 potassium, serum 4.8 mmol/L 3.5-5.2 chloride, serum [...] mg/dL Encounters Code Encounter Date Provider Facility CPT-06695 Level 3 Est. Patient 19:52:08 LINE COOK Alina Castaneda MD [facility] CPT-72945 Level 3 Est. [facility] 10:01:[address] [facility] CPT-83541 Level 3 Est. Patient 21:54:06 CDT Vanessa Hickey MD [facility] CPT-59015 Level 3 Est. Patient 08:54:46 CDT Alina Castaneda MD [facility] CPT-09911 Level 3 Est. Patient 09:32:[address] CPT-00499 Level 3 Est. Patient 12:02:49 CDT Alina Castaneda MD [facility] CPT-91101 Level 3 Est. Patient 19:17:33 CDT Alina Castaneda MD [facility] CPT-95631 Level 3 Est. [facility] CPT-17977 Level 3 Est. Patient 08:20:05 CDT Alina Castaneda MD [facility] [place] Level 3 Est. Patient 15:17:18 CDT Alina Castaneda MD [facility] CPT-71405 Level 3 Est. Patient 14:25:36 LINE COOK Marvel [facility]-80130 Level 3 Est. Patient 10:09:15 LINE COOK Marvel [facility]-34939 Level 3 Est. Patient 21:28:43 CDT Alina Castaneda MD [facility] [place]-82051 Level 3 Est. Patient 15:20:11 CDT Marvel [facility]-12773 Level 4 Est. Patient 19:08:12 CDT Alina Castaneda MD [facility] [place]-17416 Level 3 Est. Patient 15:06:39 CDT [facility]-94485 Level 4 Est. Patient 17:48:15 CDT Alina Castaneda MD [facility] [place]-83126 Level 3 Est. Patient 14:53:49 CDT Alina Castaneda MD [facility] [place]-80794 Level 3 Est. Patient 09:35:16 CDT Alina Castaneda MD [facility] [place]-80195 Level 3 Est. Patient 12:23:22 CDT Alina Castaneda MD [facility] [place]-88991 Level 3 Est. Patient 16:19:15 CDT Alina Castaneda MD [facility] [place]-04079 Level 3 Est. Patient 21:39:56 LINE COOK Alina Castaneda MD [facility] [place] [place]-37938 Level 4 Est. Patient 14:12:56 LINE COOK Alina Castaneda MD [facility] [place] [facility] [place]-32234 Level 2 Est. Patient 15:34:57 LINE COOK Alina Castaneda MD [facility] [facility] [place]-[address]217 Level 3 Est. Patient 12:17:04 LINE COOK Alina Castaneda MD [facility] [place]-60374 Level 3 Est. Patient 09:18:18 LINE COOK [facility]-34170 Level 2 Est. Patient 21:50:24 CDT Alina Castaneda MD [facility] [place]-58479 Level 3 Est. Patient 09:17:28 CDT Marvel [facility]-52573 Level 4 Est. Patient 18:54:02 CDT Alina Castaneda MD [facility] [place]-89847 Level 3 Est. Patient 10:47:10 CDT Alina Castaneda MD [facility] [place]-96640 Level 3 Est. Patient 09:22:20 CDT Marvel Arac[facility]-43336 Level 3 Est. Patient 16:39:43 [facility] Level 3 Est. Patient 16:05:16 CDT Alina Castaneda MD [facility] [place]-61863 Level 3 Est. Patient 00:29:15 CDT Alina Castaneda MD [facility] [place]-87340 Level 3 Est. Patient 10:49:22 LINE COOK [place] [facility]-32625 Level 3 Est. Patient 21:30:19 LINE COOK Alina Castaneda MD [facility]27966 Level 4 Est. Patient 17:04:11 LINE COOK [facility]-89725 Level 3 Est. Patient 15:34:11 LINE COOK [place]ivia Araceli [facility]92544 Level 2 Est. Patient 12:51:58 LINE COOK Alina Castaneda MD PhD [facility] CPT-42333 Level 3 Est. Patient 13:20:01 LINE COOK Alina Castanead MD PhD [facility] CPT-47299 Level 3 Est. Patient 09:23:35 CDT Alina Castaneda MD PhD [facility] Procedures Code Procedure Name Date Entry Date Standard Description CPT-43543 Bladder Scan 21:54:06 CDT CPT-G0008 Administration of Influenza Virus Vaccine 13:05:26 CDT CPT-85158 Fluzone Quadrivalent Intramuscular Suspension 0.5 ML 13: 05:26 CDT CPT-27802 Administration single or combination vaccine inc oral 11 :49:51 CDT CPT-23333 Pneumovax 11:49:51 CDT CPT-59993 Ribs unilateral 2V 12:37:22 LINE COOK CPT-95847 Chest 2V Frontal and Lat 17:15:26 CDT CPT-28318 Abx/Therapy Injection 18:54:02 CDT CPT-J0696 Rocephin 1000 mg (Ceftriaxone) 16:00:32 CDT CPT-53064 Chest 2V Frontal and Lat 15:26:45 CDT CPT-86848 Chest 2V Frontal and Lat 10:23:27 CDT CPT-30244 Venipuncture Draw Fee 10:11:00 CDT CPT-34572 Administration single or combination vaccine inc oral 11 :56:38 CDT CPT-75833 Influenza split virus > age 3 11:56:38 CDT CPT-19386 Venipuncture Draw Fee 08:49:54 LINE COOK CPT-72943 EKG Trac and Interp 17:54:19 LINE COOK
--- OUTSIDE RECORDS SUMMARY | 2018-07-02 20:55 | XMS REPORT | Clinical Summary ---
Author Author Admin, TERELL Organization [facility] Address Unknown Phone Allergies, Adverse Reactions, [...] sinusitis, unspecified BRONCHITIS, ACUTE 466.0 Resolved Alina Castandea MD PhD Acute bronchitis PNEUMONIA, ORGANISM UNSPECIFIED [...] units with other meals. INSULIN LISPRO (HUMAN) [id number] Active Marvel MARROQUIN Active BD INSULIN SYRINGE 28G X 1/2" 1 ML MISC 1 four times per day INSULIN SYRINGE-NEEDLE U-100 54972665920 Active Alina Castaneda MD PhD Active CYCLOBENZAPRINE HCL 10 MG TABS 1 tablet by mouth three times daily, scheduled CYCLOBENZAPRINE HCL 67618279746 Active Alina Castaneda MD PhD Active TOLTERODINE TARTRATE 2 MG TABS 1 pill twice daily, for bladder TOLTERODINE TARTRATE 74402198100 Active Alina Castaneda MD PhD Active DETROL LA 4 MG [id number] Take 1 tablet by mouth daily TOLTERODINE TARTRATE 51458166019 No Longer Active Alina Castaneda MD PhD Active HYDROCODONE-ACETAMINOPHEN 5-325 MG TABS 2 tabs by mouth three times daily as needed for pain HYDROCODONE-ACETAMINOPHEN 12407822503 Active Alina Castaneda MD PhD Active TERESE CONTOUR TEST STRP monitor blood sugars 3x/day GLUCOSE BLOOD 95552417319 No Longer Active Alina Castaneda MD PhD Active EQL TRUETEST TEST STRP Test blood sugar TID GLUCOSE BLOOD 90227785090 No Longer Active Alina Castaneda MD PhD Active FLUTICASONE PROPIONATE 50 MCG/ACT SUSP 2 sprays each nostril qDay x 30 days FLUTICASONE PROPIONATE 54991765005 No Longer Active Alina Castaneda MD PhD Active IBUPROFEN 200 MG TABS 1 Q 6 hr. PRN IBUPROFEN 17022810869 No Longer Active Alina Castaneda MD PhD Active NIACIN ER 500 MG CR-TABS 4 qHS (for triglycerides) NIACIN 62291653566 No Longer Active Alina Castaneda MD PhD Active LEVEMIR 100 UNIT/ML SOLN Take 100u at 7-8pm INSULIN DETEMIR 71913817087 Active Marvel Charles [employer] D[employer] IN Active TRUETEST TEST STRP check sugars 4x/day GLUCOSE BLOOD 83448028708 Active Alina Castaneda MD PhD Active ALFUZOSIN HCL ER 10 MG [id number] 1 tablet daily ALFUZOSIN HCL 75663789324 Active Vanessa Hickey MD Active CLONAZEPAM 1 MG TABS 1 pill by mouth three times daily CLONAZEPAM 76703974454 Active Alina Castaneda MD PhD Active LOVAZA 1 GM CAPS 4 daily (for triglycerides) [id number] ETHYL ESTERS 07848740157 Active Alina Castaneda MD PhD Active SAPHRIS 5 MG SUBL by mouth twice a day ASENAPINE MALEATE 06746641075 No Longer Active Marvel MENDOZAP Active ACETAMINOPHEN 500 MG TABS 2 Q 6 hr. PRN ACETAMINOPHEN 37889032436 No [facility] Active VERAPAMIL HCL ER 120 MG [id number] 1 pill by mouth twice a day, for headache prevention/control VERAPAMIL HCL 27500967119 Active Alina Castaneda MD PhD Active ORPHENADRINE CITRATE ER 100 MG [id number]-[id number] 1 every 12 hr. as needed ORPHENADRINE CITRATE 12691982307 No Longer Active Alina Castaneda MD PhD Active NIACIN CR 500 MG CR-TABS 2 qHS NIACIN 10433628597 No Longer Active Alina Castaneda MD PhD Active AMOXICILLIN 500 MG CAPS 2 po BID x 10 days AMOXICILLIN 54439229870 No Longer Active Alina Castaneda MD PhD Active ZYPREXA 7.5 MG TABS 1 at HS OLANZAPINE 35664812452 Active Alina Castaneda MD PhD Active THIOTHIXENE 5 MG CAPS by mouth twice a day THIOTHIXENE 22944956634 Active Alina Castaneda MD PhD Active HYDROCODONE-ACETAMINOPHEN 7.5-325 MG TABS 1 four times a day as needed for pain HYDROCODONE-ACETAMINOPHEN 49489989464 No Longer Active Alina Castaneda MD PhD Active METFORMIN HCL ER 500 MG [id number] Take three tablets by mouth everyday METFORMIN HCL 29685331439 Active Marvel MENDOZAP Active DOXEPIN HCL 10 MG CAPS Take 1 tablet by mouth daily DOXEPIN HCL 08598630569 No Longer Active Salina ROJAS Active NAVANE 10 MG CAPS 1/2 tablet twice a day THIOTHIXENE No Longer Active Salina ROBBINSA Active CYCLOBENZAPRINE HCL 10 MG TABS 1/2 tablet by mouth every 8 hours as needed for muscle spasms CYCLOBENZAPRINE HCL 47122239333 No Longer Active Alina Castaneda MD PhD Active BACTROBAN 2 % CREAM apply to ear and nose twice daily MUPIROCIN CALCIUM 62525387994 No Longer Active Alina Castaneda MD PhD Active HYDROCODONE-ACETAMINOPHEN 5-325 MG TABS take one tablet by mouth every four hours as needed for pain HYDROCODONE-ACETAMINOPHEN 54251714939 No Longer Active Alina Castaneda MD PhD Active ZOLPIDEM TARTRATE 10 MG TABS take at bedtime ZOLPIDEM TARTRATE 37312858691 Active Alina Castaneda MD PhD Active ZYPREXA 5 MG TABS take one tablet by mouth every evening OLANZAPINE 54991630668 No Longer Active Alina Castaneda MD PhD Active ALBUTEROL SULFATE 0.083 % NEBU SOLN one vial per nebulizer TID and PRN cough/ soa ALBUTEROL SULFATE 20338590254 No Longer Active Alina Castaneda MD PhD Active GUAIFENESIN 600 MG MA43B-EQP 1 tablet by mouth twice daily if needed for cough GUAIFENESIN 96031974506 No Longer Active Marvel Charles [employer] Active AZITHROMYCIN 500 MG SOLR 1 po q day AZITHROMYCIN 11276236417 No Longer Active Alina Castaneda MD PhD Active METOPROLOL SUCCINATE 100 MG NB30X-QHA 1 by mouth daily for blood pressure METOPROLOL SUCCINATE 30805482463 Active Alina Castaneda MD PhD Active PROMETHAZINE-CODEINE 6.25-10 MG/5ML SYRP 1 tsp po q 6 hours prn cough PROMETHAZINE-CODEINE 22266516968 No Longer Active Alina Castaneda MD PhD Active CEFDINIR 300 MG CAPS by mouth twice a day CEFDINIR 73348353953 No Longer Active Alina Castaneda MD PhD Active METFORMIN HCL 500 MG TE65H-HRV Take 3 tablets by mouth everyday METFORMIN HCL 23583151541 No Longer Active Alina Castaneda MD PhD Active LEVEMIR 100 UNIT/ML SOLN 90 units SQ qHS INSULIN DETEMIR 73623788269 No Longer Active Marvel MARROQUIN Active TOPROL XL 100 MG [id number]-MME 1 @ HS METOPROLOL SUCCINATE 36785980007 No Longer Active Marvel MARROQUIN Active ALLOPURINOL 300 MG TABS Take one by mouth daily ALLOPURINOL 72598171498 Active Alina Castaneda MD PhD Active ZYPREXA 10 MG TABS Take one by mouth daily OLANZAPINE 89060851871 No Longer Active Alina Castaneda MD PhD Active NOVOLOG 100 UNIT/ML SOLN 40 units with every meal INSULIN ASPART 38464568814 No Longer Active Alina Castaneda MD PhD Active VERAPAMIL HCL CR 120 MG TAB CR 1 qPM VERAPAMIL HCL 84486366038 No Longer Active Salina Emely [facility] Active ZYPREXA 15 MG TABS Take 1 tablet by mouth daily OLANZAPINE 28916158424 No Longer Active Marvel MARROQUIN Active LISINOPRIL 20 MG TABS 1 BID LISINOPRIL 58105735157 Active Mao Rodriguez MD Active ALBUTEROL SULFATE (2.5 MG/3ML) 0.083% NEBU 1 neb tid and prn cough ALBUTEROL SULFATE 60480246799 No Longer Active Alina Castaneda MD PhD Active FLUVOXAMINE MALEATE 100 MG TABS Take one (1) tablet by mouth am, 1/2 at noon, 1 pm FLUVOXAMINE MALEATE 45942297486 Active Alina Castaneda MD PhD Active TRAVATAN Z 0.004 % SOLN 1 gtt each eye daily TRAVOPROST 75160018247 Active Alina Mendez Active LANTUS 100 UNIT/ML SOLN 60 units sq q hs INSULIN GLARGINE 77011877653 No Longer Active Alina Mendez Active UROXATRAL 10 MG [id number] Take 1 tablet by mouth daily ALFUZOSIN HCL 40078147601 Active Tanya MARROQUIN Active ALBUTEROL SULFATE (2.5 MG/3ML) 0.083% NEBU 1 neb tid and prn cough ALBUTEROL SULFATE (2.5 MG/3ML) 0.083% NEBU 794753 ALBUTEROL SULFATE Inactive ZYPREXA 15 MG TABS Take 1 tablet by mouth daily ZYPREXA 15 MG TABS 326352 OLANZAPINE Inactive VERAPAMIL HCL CR 120 MG TAB CR 1 qPM VERAPAMIL HCL CR 120 MG TAB CR VERAPAMIL HCL Inactive ZYPREXA 10 MG TABS Take one by mouth daily ZYPREXA 10 MG TABS 405677 OLANZAPINE Inactive TOPROL XL 100 MG [id number] 1 @ HS TOPROL XL 100 MG [id number]-XHQ METOPROLOL SUCCINATE Inactive LEVEMIR 100 UNIT/ML SOLN 90 units SQ qHS LEVEMIR 100 UNIT/ML SOLN INSULIN DETEMIR Inactive PROMETHAZINE-CODEINE 6.25-10 MG/5ML SYRP 1 tsp po q 6 hours prn cough PROMETHAZINE-CODEINE 6.25-10 MG/5ML SYRP 800535 PROMETHAZINE- CODEINE Inactive GUAIFENESIN 600 MG QK45L-JBV 1 tablet by mouth twice daily if needed for cough GUAIFENESIN 600 MG [id number] GUAIFENESIN Inactive ALBUTEROL SULFATE 0.083 % NEBU SOLN one vial per nebulizer TID and PRN cough/ soa ALBUTEROL SULFATE 0.083 % NEBU SOLN 574155 ALBUTEROL SULFATE Inactive ZYPREXA 5 MG TABS take one tablet by mouth every evening ZYPREXA 5 MG TABS 743107 OLANZAPINE Inactive HYDROCODONE-ACETAMINOPHEN 5-325 MG TABS take one tablet by mouth every four hours as needed for pain HYDROCODONE-ACETAMINOPHEN 5-325 MG TABS 934002 HYDROCODONE-ACETAMINOPHEN Inactive BACTROBAN 2 % CREAM apply to ear and nose twice daily BACTROBAN 2 % CREAM 836890 MUPIROCIN CALCIUM Inactive CYCLOBENZAPRINE HCL 10 MG TABS 1/2 tablet by mouth every 8 hours as needed for muscle spasms CYCLOBENZAPRINE HCL 10 MG TABS 143784 CYCLOBENZAPRINE HCL Inactive NAVANE 10 MG CAPS 1/2 tablet twice a day NAVANE 10 MG CAPS THIOTHIXENE Inactive DOXEPIN HCL 10 MG CAPS Take 1 tablet by mouth daily DOXEPIN HCL 10 MG CAPS 1469052 DOXEPIN HCL Inactive HYDROCODONE-ACETAMINOPHEN 7.5-325 MG TABS 1 four times a day as needed for pain HYDROCODONE-ACETAMINOPHEN 7.5-325 MG TABS 126573 HYDROCODONE-ACETAMINOPHEN Inactive NIACIN CR 500 MG CR-TABS 2 qHS NIACIN CR 500 MG CR- TABS NIACIN Inactive ORPHENADRINE CITRATE ER 100 MG [id number] 1 every 12 hr. as needed ORPHENADRINE CITRATE ER 100 MG [id number] ORPHENADRINE CITRATE Inactive ACETAMINOPHEN 500 MG TABS 2 Q 6 hr. PRN ACETAMINOPHEN 500 MG TABS 152772 ACETAMINOPHEN Inactive SAPHRIS 5 MG SUBL by mouth twice a day SAPHRIS 5 MG SUBL ASENAPINE MALEATE Inactive NIACIN ER 500 MG CR-TABS 4 qHS (for triglycerides) NIACIN ER 500 MG CR-TABS NIACIN Inactive IBUPROFEN 200 MG TABS 1 Q 6 hr. PRN IBUPROFEN 200 MG TABS 178409 IBUPROFEN Inactive FLUTICASONE PROPIONATE 50 MCG/ACT SUSP 2 sprays each nostril qDay x 30 days FLUTICASONE PROPIONATE 50 MCG/ACT SUSP 643855 FLUTICASONE PROPIONATE Inactive EQL TRUETEST TEST STRP Test blood sugar TID EQL TRUETEST TEST STRP GLUCOSE BLOOD Inactive TERESE CONTOUR TEST STRP monitor blood sugars 3x/day TERESE CONTOUR TEST STRP GLUCOSE BLOOD Inactive DETROL LA 4 MG RU89H-EKE Take 1 tablet by mouth daily DETROL LA 4 MG [id number] TOLTERODINE TARTRATE Inactive CEFDINIR 300 MG CAPS by mouth twice a day CEFDINIR 300 MG CAPS 750265 CEFDINIR Inactive AZITHROMYCIN 500 MG SOLR 1 po q day AZITHROMYCIN 500 MG SOLR 221220 AZITHROMYCIN Inactive AMOXICILLIN 500 MG CAPS 2 po BID x 10 days AMOXICILLIN 500 MG CAPS 896035 AMOXICILLIN Inactive Immunizations Vaccine Administration Date Value [...] Fluvirin, Fluarix, Agriflu(>=18 yo)) Fluzone (>3 yrs.) [[id number]] Influenza, seasonal, injectable pneumococcal immunization administered Pneumovax [...] HGBA1C - Chemistry sodium, serum 130 mmol/L 950-269 8385/06/09 potassium, serum 4.0 mmol/L 3.5-5.2 chloride, serum [...] 6.0 mg/dL 2.6-7.2 sodium, serum 130 mmol/L 604-585 6168/05/01 potassium, serum 5.2 mmol/L 3.5-5.2 chloride, serum [...] 0.40 mg/dL 0.00-1.00 cholesterol, serum 151 mg/dL 787-684 7508/05/01 triglyceride, serum, fasting 356 mg/dL 30-200 HDL [...] HGBA1C - Chemistry sodium, serum 126 mmol/L 747-735 5479/02/26 potassium, serum 4.8 mmol/L 3.5-5.2 chloride, serum [...] DIRECT - Chemistry cholesterol, serum 158 mg/dL 901-274 3305/07/11 triglyceride, serum, fasting 489 mg/dL 30-200 HDL [...] mg/dL Encounters Code Encounter Date Provider Facility CPT-90023 Level 3 Est. Patient 13:19:10 CDT [facility] Level 3 Est. Patient 08:20:05 CDT Alina Castaneda MD [facility]-23510 Level 3 Est. Patient 15:17:18 CDT Alina Castaneda MD PhD [facility]-13938 Level 3 Est. Patient 14:25:36 BROKE MAN [facility] CPT-28732 Level 3 Est. Patient 10:09:15 BROKE MAN [facility] CPT-28302 Level 3 Est. Patient 21:28:43 CDT Alina Castaneda MD [facility]-23679 Level 3 Est. Patient 15:20:11 CDT [facility] CPT-85648 Level 4 Est. Patient 19:08:12 CDT Alina Castaneda MD PhD [facility]60144 Level 3 Est. Patient 15:06:39 CDT [facility]-37798 Level 4 Est. Patient 17:48:15 CDT Alina Castaneda MD PhD [facility]80005 Level 3 Est. Patient 14:53:49 CDT Alina Castaneda MD [facility]-30819 Level 3 Est. Patient 09:35:16 CDT Alina Castaneda MD [facility]-46280 Level 3 Est. Patient 12:23:22 CDT Alina Castaneda MD [facility]00261 Level 3 Est. Patient 16:19:15 CDT Alina Castaneda MD [facility]67064 Level 3 Est. Patient 21:39:56 BROKE MAN Alina Castaneda MD [facility]-53053 Level 4 Est. Patient 14:12:56 BROKE MAN Alina Castaneda MD [facility]-80021 Level 2 Est. Patient 15:34:57 BROKE MAN Alina Castaneda MD [facility]-27282 Level 3 Est. Patient 12:17:04 BROKE MAN Alina Castaneda MD [facility]-07828 Level 3 Est. Patient 09:18:18 BROKE MAN Marvel Charles [facility]-00734 Level 2 Est. Patient 21:50:24 CDT Alina Castaneda MD [facility]-50139 Level 3 Est. Patient 09:17:28 CDT Marvel Charles [facility]-49948 Level 4 Est. Patient 18:54:02 CDT Alina Castaneda MD [facility]-71439 Level 3 Est. Patient 10:47:10 CDT Alina Castaneda MD [facility]35263 Level 3 Est. Patient 09:22:20 CDT Marvel Charles [facility]-12181 Level 3 Est. Patient 16:39:43 [facility] CPT-94078 Level 3 Est. Patient 16:05:16 CDT Alina Castaneda MD [facility] CPT-79871 Level 3 Est. Patient 00:29:15 CDT Alina Castaneda MD [facility]-34910 Level 3 Est. Patient 10:49:22 BROKE MAN Marvel Thurstonestela [facility] CPT-26769 Level 3 Est. Patient 21:30:19 BROKE MAN Alina Castaneda MD [facility] CPT-28128 Level 4 Est. Patient 17:04:11 [facility]19[facility] Level 3 Est. Patient 15:34:11 BROKE [facility] CPT-13687 Level 2 Est. Patient 12:51:58 BROKE MAN Alina Castaneda MD [facility] CPT-63932 Level 3 Est. Patient 13:20:01 BROKE MAN Alina Castaneda MD [facility] CPT-49597 Level 3 Est. Patient 09:23:35 CDT Alina Castaneda MD [facility] Procedures Code Procedure Name Date Entry Date Standard Description CPT-32324 Administration single or combination vaccine inc oral 11 :49:51 CDT CPT-77077 Pneumovax 11:49:51 CDT CPT-56274 Ribs unilateral 2V 12:37:22 BROKE MAN CPT-44188 Chest 2V Frontal and Lat 17:15:26 CDT CPT-98825 Abx/Therapy Injection 18:54:02 CDT CPT-J0696 Rocephin 1000 mg (Ceftriaxone) 16:00:32 CDT CPT-94859 Chest 2V Frontal and Lat 15:26:45 CDT CPT-21928 Chest 2V Frontal and Lat 10:23:27 CDT CPT-17707 Venipuncture Draw Fee 10:11:00 CDT CPT-57827 Administration single or combination vaccine inc oral 11 :56:38 CDT CPT-22668 Influenza split virus > age 3 11:56:38 CDT CPT-78003 Venipuncture Draw Fee 08:49:54 BROKE MAN CPT-97765 EKG Trac and Interp 17:54:19 BROKE MAN
--- OUTSIDE RECORDS SUMMARY | 2018-07-02 20:56 | XMS REPORT | Clinical Summary ---
Author Author Admin, TERELL Organization [facility] Address Unknown Phone Unavailable Allergies, Adverse [...] by mouth nightly, for pain MORPHINE SULFATE 88177175624 Active Alina Castaneda MD PhD Active LATUDA 80 MG TABS 1 tab by mouth every evening LURASIDONE HCL 42441494430 Active Alina Castaneda MD PhD Active UROXATRAL 10 MG [id number] Take 1 tablet by mouth daily ALFUZOSIN HCL 65541477957 No Longer Active Alina Castaneda MD PhD Active THIOTHIXENE 5 MG CAPS by mouth twice a day THIOTHIXENE 69079976618 No Longer Active Alina Castaneda MD PhD Active ZYPREXA 7.5 MG TABS 1 at HS OLANZAPINE 16670196652 No Longer Active Alina Castaneda MD PhD Active HUMALOG 100 UNIT/ML SOLN Take 20 units with breakfast, 10u with lunch and suppetr. INSULIN LISPRO (HUMAN) 14270009363 Active Maliheh Ziglari COUNSELOR SUPERVISOR Active LEVEMIR 100 UNIT/ML SOLN Take 70 u at 7-8pm INSULIN DETEMIR 38600293109 Active Maliheh Ziglari COUNSELOR SUPERVISOR Active BD INSULIN SYRINGE 28G X 1/2" 1 ML MISC 1 four times per day INSULIN SYRINGE-NEEDLE U-100 64339985440 Active Maliheh Ziglari COUNSELOR SUPERVISOR Active CYCLOBENZAPRINE HCL 10 MG TABS 1 tablet by mouth three times daily, scheduled CYCLOBENZAPRINE HCL 09979009914 Active Alina Castaneda MD PhD Active TOLTERODINE TARTRATE 2 MG TABS 1 pill twice daily, for bladder TOLTERODINE TARTRATE 73521626653 Active Alina Castaneda MD PhD Active DETROL LA 4 MG [id number] Take 1 tablet by mouth daily TOLTERODINE TARTRATE 38589017195 No Longer Active Alina Castaneda MD PhD Active HYDROCODONE-ACETAMINOPHEN 5-325 MG TABS 2 tabs by mouth three times daily as needed for pain HYDROCODONE-ACETAMINOPHEN 67234658646 Active Alina Castaneda MD PhD Active TERESE CONTOUR TEST STRP monitor blood sugars 3x/day GLUCOSE BLOOD 51520685117 No Longer Active Alina Castaneda MD PhD Active EQL TRUETEST TEST STRP Test blood sugar TID GLUCOSE BLOOD 89783738619 No Longer Active Alina Castaneda MD PhD Active FLUTICASONE PROPIONATE 50 MCG/ACT SUSP 2 sprays each nostril qDay x 30 days FLUTICASONE PROPIONATE 91469573356 No Longer Active Alina Castaneda MD PhD Active IBUPROFEN 200 MG TABS 1 Q 6 hr. PRN IBUPROFEN 04375337611 No Longer Active Alina Castaneda MD PhD Active NIACIN ER 500 MG CR-TABS 4 qHS (for triglycerides) NIACIN 14777411509 No Longer Active Alina Castaneda MD PhD Active TRUETEST TEST STRP check sugars 4x/day GLUCOSE BLOOD 69048242079 Active Alina Castaneda MD PhD Active ALFUZOSIN HCL ER 10 MG [id number] 1 tablet daily ALFUZOSIN HCL 16584349677 Active Vanessa Hickey MD Active CLONAZEPAM 1 MG TABS 1 pill by mouth three times daily CLONAZEPAM 45574643920 Active Alina Castaneda MD PhD Active LOVAZA 1 GM CAPS 4 daily (for triglycerides) [id number] ETHYL ESTERS 94948739113 Active Alina Castaneda MD PhD Active SAPHRIS 5 MG SUBL by mouth twice a day ASENAPINE MALEATE 00865559108 No Longer Active Maljohn Mackenzieglari COUNSELOR SUPERVISOR Active ACETAMINOPHEN 500 MG TABS 2 Q 6 hr. PRN ACETAMINOPHEN 02725996583 No Longer Active Maliheh Ziglari COUNSELOR SUPERVISOR Active VERAPAMIL HCL ER 120 MG [id number]-LCU 1 pill by mouth twice a day, for headache prevention/control VERAPAMIL HCL 46118508053 Active Alina Castaneda MD PhD Active ORPHENADRINE CITRATE ER 100 MG [id number] 1 every 12 hr. as needed ORPHENADRINE CITRATE 30939825688 No Longer Active Alina Castaneda MD PhD Active NIACIN CR 500 MG CR-TABS 2 qHS NIACIN 74479543486 No Longer Active Alina Castaneda MD PhD Active AMOXICILLIN 500 MG CAPS 2 po BID x 10 days AMOXICILLIN 02785176206 No Longer Active Alina Castaneda MD PhD Active HYDROCODONE-ACETAMINOPHEN 7.5-325 MG TABS 1 four times a day as needed for pain HYDROCODONE-ACETAMINOPHEN 13454064810 No Longer Active Alina Castaneda MD PhD Active METFORMIN HCL ER 500 MG [id number]-FTX Take three tablets by mouth everyday METFORMIN HCL 88837611428 Active Alina Castaneda MD PhD Active DOXEPIN HCL 10 MG CAPS Take 1 tablet by mouth daily DOXEPIN HCL 96015624600 No Longer Active Salina Han A Active NAVANE 10 MG CAPS 1/2 tablet twice a day THIOTHIXENE No Longer Active Salina Han [facility] Active CYCLOBENZAPRINE HCL 10 MG TABS 1/2 tablet by mouth every 8 hours as needed for muscle spasms CYCLOBENZAPRINE HCL 61315748117 No Longer Active Alina Castaneda MD PhD Active BACTROBAN 2 % CREAM apply to ear and nose twice daily MUPIROCIN CALCIUM 47840146960 No Longer Active Alina Castaneda MD PhD Active HYDROCODONE-ACETAMINOPHEN 5-325 MG TABS take one tablet by mouth every four hours as needed for pain HYDROCODONE-ACETAMINOPHEN 13992816995 No Longer Active Alina Castaneda MD PhD Active ZOLPIDEM TARTRATE 10 MG TABS take at bedtime ZOLPIDEM TARTRATE 39477583105 Active Alina Castaneda MD PhD Active ZYPREXA 5 MG TABS take one tablet by mouth every evening OLANZAPINE 36891077707 No Longer Active Alina Castaneda MD PhD Active ALBUTEROL SULFATE 0.083 % NEBU SOLN one vial per nebulizer TID and PRN cough/ soa ALBUTEROL SULFATE 98706850212 No Longer Active Alina Castaneda MD PhD Active GUAIFENESIN 600 MG XU57H-QLL 1 tablet by mouth twice daily if needed for cough GUAIFENESIN 68676807568 No Longer Active Marvel MARROQUIN Active AZITHROMYCIN 500 MG SOLR 1 po q day AZITHROMYCIN 20913398551 No Longer Active Alina Castaneda MD PhD Active METOPROLOL SUCCINATE 100 MG BS64Y-LUV 1 by mouth daily for blood pressure METOPROLOL SUCCINATE 75282900391 Active Alina Castaneda MD PhD Active PROMETHAZINE-CODEINE 6.25-10 MG/5ML SYRP 1 tsp po q 6 hours prn cough PROMETHAZINE-CODEINE 95570844562 No Longer Active Alina Castaneda MD PhD Active CEFDINIR 300 MG CAPS by mouth twice a day CEFDINIR 43390765663 No Longer Active Alina Castaneda MD PhD Active METFORMIN HCL 500 MG ZJ45H-FNP Take 3 tablets by mouth everyday METFORMIN HCL 26876314157 No Longer Active Alina Castaneda MD PhD Active LEVEMIR 100 UNIT/ML SOLN 90 units SQ qHS INSULIN DETEMIR 31890873614 No Longer Active Marvel MARROQUIN Active TOPROL XL 100 MG NM81W-MUG 1 @ HS METOPROLOL SUCCINATE 86792560424 No Longer Active Marvel MARROQUIN Active ALLOPURINOL 300 MG TABS Take one by mouth daily ALLOPURINOL 74950299151 Active Alina Castaneda MD PhD Active ZYPREXA 10 MG TABS Take one by mouth daily OLANZAPINE 69537965181 No Longer Active Alina Castaneda MD PhD Active NOVOLOG 100 UNIT/ML SOLN 40 units with every meal INSULIN ASPART 17222706673 No Longer Active Alina Castaneda MD PhD Active VERAPAMIL HCL CR 120 MG TAB CR 1 qPM VERAPAMIL HCL 66067022841 No Longer Active Salina Han [facility] Active ZYPREXA 15 MG TABS Take 1 tablet by mouth daily OLANZAPINE 06672589468 No Longer Active Marvel MARROQUIN Active LISINOPRIL 20 MG TABS 1 BID LISINOPRIL 54019053284 Active Alina Castaneda MD PhD Active ALBUTEROL SULFATE (2.5 MG/3ML) 0.083% NEBU 1 neb tid and prn cough ALBUTEROL SULFATE 17596899549 No Longer Active Alina Castaneda MD PhD Active FLUVOXAMINE MALEATE 100 MG TABS Take one (1) tablet by mouth am, 05/25 at noon, 1 pm FLUVOXAMINE MALEATE 54790223536 Active Alina Castaneda MD PhD Active TRAVATAN Z 0.004 % SOLN 1 gtt each eye daily TRAVOPROST 09045206018 Active CRYSTAL Suarez Active LANTUS 100 UNIT/ML SOLN 60 units sq q hs INSULIN GLARGINE 44512681627 No Longer Active CRYSTAL Suarez Active ALBUTEROL SULFATE (2.5 MG/3ML) 0.083% NEBU 1 neb tid and prn cough ALBUTEROL SULFATE (2.5 MG/3ML) 0.083% NEBU 323563 ALBUTEROL SULFATE Inactive ZYPREXA 15 MG TABS Take 1 tablet by mouth daily ZYPREXA 15 MG TABS 386017 OLANZAPINE Inactive VERAPAMIL HCL CR 120 MG TAB CR 1 qPM VERAPAMIL HCL CR 120 MG TAB CR VERAPAMIL HCL Inactive ZYPREXA 10 MG TABS Take one by mouth daily ZYPREXA 10 MG TABS 089245 OLANZAPINE Inactive TOPROL XL 100 MG IT51W-RSH 1 @ HS TOPROL XL 100 MG FZ96F-EWI METOPROLOL SUCCINATE Inactive LEVEMIR 100 UNIT/ML SOLN 90 units SQ qHS LEVEMIR 100 UNIT/ML SOLN INSULIN DETEMIR Inactive PROMETHAZINE-CODEINE 6.25-10 MG/5ML SYRP 1 tsp po q 6 hours prn cough PROMETHAZINE-CODEINE 6.25-10 MG/5ML SYRP 034734 PROMETHAZINE- CODEINE Inactive GUAIFENESIN 600 MG FK10C-RXM 1 tablet by mouth twice daily if needed for cough GUAIFENESIN 600 MG GJ37S-XHX GUAIFENESIN Inactive ALBUTEROL SULFATE 0.083 % NEBU SOLN one vial per nebulizer TID and PRN cough/ soa ALBUTEROL SULFATE 0.083 % [facility] 331558 ALBUTEROL SULFATE Inactive ZYPREXA 5 MG TABS take one tablet by mouth every evening ZYPREXA 5 MG TABS 212662 OLANZAPINE Inactive HYDROCODONE-ACETAMINOPHEN 5-325 MG TABS take one tablet by mouth every four hours as needed for pain HYDROCODONE-ACETAMINOPHEN 5-325 MG TABS 245065 HYDROCODONE-ACETAMINOPHEN Inactive BACTROBAN 2 % CREAM apply to ear and nose twice daily BACTROBAN 2 % CREAM 291648 MUPIROCIN CALCIUM Inactive CYCLOBENZAPRINE HCL 10 MG TABS 1/2 tablet by mouth every 8 hours as needed for muscle spasms CYCLOBENZAPRINE HCL 10 MG TABS 046977 CYCLOBENZAPRINE HCL Inactive NAVANE 10 MG CAPS 1/2 tablet twice a day NAVANE 10 MG CAPS THIOTHIXENE Inactive DOXEPIN HCL 10 MG CAPS Take 1 tablet by mouth daily DOXEPIN HCL 10 MG CAPS 7052312 DOXEPIN HCL Inactive HYDROCODONE-ACETAMINOPHEN 7.5-325 MG TABS 1 four times a day as needed for pain HYDROCODONE-ACETAMINOPHEN 7.5-325 MG TABS 721320 HYDROCODONE-ACETAMINOPHEN Inactive NIACIN CR 500 MG CR-TABS 2 qHS NIACIN CR 500 MG CR- TABS NIACIN Inactive ORPHENADRINE CITRATE ER 100 MG [id number]-VAJ 1 every 12 hr. as needed ORPHENADRINE CITRATE ER 100 MG ML83F-YGB ORPHENADRINE CITRATE Inactive ACETAMINOPHEN 500 MG TABS 2 Q 6 hr. PRN ACETAMINOPHEN 500 MG TABS 308197 ACETAMINOPHEN Inactive SAPHRIS 5 MG SUBL by mouth twice a day SAPHRIS 5 MG SUBL ASENAPINE MALEATE Inactive NIACIN ER 500 MG CR-TABS 4 qHS (for triglycerides) NIACIN ER 500 MG CR-TABS NIACIN Inactive IBUPROFEN 200 MG TABS 1 Q 6 hr. PRN IBUPROFEN 200 MG TABS 294100 IBUPROFEN Inactive FLUTICASONE PROPIONATE 50 MCG/ACT SUSP 2 sprays each nostril qDay x 30 days FLUTICASONE PROPIONATE 50 MCG/ACT SUSP 075568 FLUTICASONE PROPIONATE Inactive EQL TRUETEST TEST STRP Test blood sugar TID EQL TRUETEST TEST STRP GLUCOSE BLOOD Inactive TERSEE CONTOUR TEST STRP monitor blood sugars 3x/day TERESE CONTOUR TEST STRP GLUCOSE BLOOD Inactive DETROL LA 4 MG LF62F-VQG Take 1 tablet by mouth daily DETROL LA 4 MG [id number]-JMT TOLTERODINE TARTRATE Inactive ZYPREXA 7.5 MG TABS 1 at HS ZYPREXA 7.5 MG TABS 678397 OLANZAPINE Inactive THIOTHIXENE 5 MG CAPS by mouth twice a day THIOTHIXENE 5 MG CAPS 742113 THIOTHIXENE Inactive UROXATRAL 10 MG GB37Z-MLE Take 1 tablet by mouth daily UROXATRAL 10 MG FU32X-DSA ALFUZOSIN HCL Inactive CEFDINIR 300 MG CAPS by mouth twice a day CEFDINIR 300 MG CAPS 649783 CEFDINIR Inactive AZITHROMYCIN 500 MG SOLR 1 po q day AZITHROMYCIN 500 MG SOLR 241700 AZITHROMYCIN Inactive AMOXICILLIN 500 MG CAPS 2 po BID x 10 days AMOXICILLIN 500 MG CAPS 949225 AMOXICILLIN Inactive Immunizations Vaccine Administration Date Value [...] Fluvirin, Fluarix, Agriflu(>=18 yo)) Fluzone (>3 yrs.) [[id number]] Influenza, seasonal, injectable pneumococcal immunization administered Pneumovax [...] HGBA1C - Chemistry sodium, serum 130 mmol/L 591-543 4728/06/09 potassium, serum 4.0 mmol/L 3.5-5.2 chloride, serum [...] 6.0 mg/dL 2.6-7.2 sodium, serum 130 mmol/L 498-979 5212/05/01 potassium, serum 5.2 mmol/L 3.5-5.2 chloride, serum [...] 0.40 mg/dL 0.00-1.00 cholesterol, serum 151 mg/dL 921-387 5439/05/01 triglyceride, serum, fasting 356 mg/dL 30-200 HDL [...] HGBA1C - Chemistry sodium, serum 126 mmol/L 551-622 5543/02/26 potassium, serum 4.8 mmol/L 3.5-5.2 chloride, serum [...] mg/dL Encounters Code Encounter Date Provider Facility CPT-55775 Level 3 Est. Patient 09:32:11 [place] [facility] [place] Level 3 Est. Patient 12:02:49 CDT Alina Castaneda MD PhD [facility] CPT-88574 Level 3 Est. Patient 19:17:33 CDT Alina Castaneda MD [facility]-97008 Level 3 Est. Patient 13:19:[address] [facility]61 Level 3 Est. Patient 08:20:05 CDT Alina Castaneda MD PhD [facility]-51614 Level 3 Est. Patient 15:17:18 CDT Alina Castaneda MD PhD [facility]-61782 Level 3 Est. Patient 14:25:36 EMBLEM DRAWER [place] [facility] [place]-25076 Level 3 Est. Patient 10:09:15 EMBLEM DRAWER IN [facility]-52777 Level 3 Est. Patient 21:28:43 CDT Alina Castaneda MD [facility]-14152 Level 3 Est. Patient 15:20:11 CDT [facility]-96785 Level 4 Est. Patient 19:08:12 CDT Alina Castaneda MD [facility]-00322 Level 3 Est. Patient 15:06:39 CDT [facility] CPT-20222 Level 4 Est. Patient 17:48:15 CDT Alina Castaneda MD [facility]-09620 Level 3 Est. Patient 14:53:49 CDT Alina Castaneda MD [facility]-23099 Level 3 Est. Patient 09:35:16 CDT Alina Castaneda MD [facility]-27755 Level 3 Est. Patient 12:23:22 CDT Alina Castaneda MD [facility]-91810 Level 3 Est. Patient 16:19:15 CDT Alina Castaneda MD [facility]-93772 Level 3 Est. Patient 21:39:56 EMBLEM DRAWER IN Alina Castaneda MD [facility]-23892 Level 4 Est. Patient 14:12:56 EMBLEM DRAWER IN Alina Castaneda MD [facility]-93047 Level 2 Est. Patient 15:34:57 EMBLEM DRAWER IN Alina Castaneda MD [facility]-11433 Level 3 Est. Patient 12:17:04 EMBLEM DRAWER IN Alina Castaneda MD [facility]-72652 Level 3 Est. Patient 09:18:18 EMBLEM DRAWER IN [facility]-34900 Level 2 Est. Patient 21:50:24 CDT Alina Castaneda MD [facility]-86235 Level 3 Est. Patient 09:17:28 CDT [facility]-82135 Level 4 Est. Patient 18:54:02 CDT Alina Castaneda MD [facility]-26437 Level 3 Est. Patient 10:47:10 CDT Alina Castaneda MD [facility]81682 Level 3 Est. Patient 09:22:20 CDT Marvel [facility]-79710 Level 3 Est. Patient 16:39:43 CDT [facility]-26424 Level 3 Est. Patient 16:05:16 CDT Alina Castaneda MD [facility]-61029 Level 3 Est. Patient 00:29:15 CDT Alina Castaneda MD [facility]43751 Level 3 Est. Patient 10:49:22 EMBLEM DRAWER IN [facility]-71802 Level 3 Est. Patient 21:30:19 EMBLEM DRAWER IN Alina Castaneda MD [facility]-43392 Level 4 Est. Patient 17:04:11 EMBLEM DRAWER IN [facility]-00583 Level 3 Est. Patient 15:34:11 EMBLEM DRAWER IN [facility]-47205 Level 2 Est. Patient 12:51:58 EMBLEM DRAWER IN Alina Castaneda MD [facility]-01344 Level 3 Est. Patient 13:20:01 EMBLEM DRAWER IN Alina Castaneda MD [facility]60346 Level 3 Est. Patient 09:23:35 CDT Alina Castaneda MD PhD [facility] Procedures Code Procedure Name Date Entry Date Standard Description CPT-53808 Administration single or combination vaccine inc oral 11 :49:51 CDT CPT-86947 Pneumovax 11:49:51 CDT CPT-62863 Ribs unilateral 2V 12:37:22 EMBLEM DRAWER IN CPT-30275 Chest 2V Frontal and Lat 17:15:26 CDT CPT-49469 Abx/Therapy Injection 18:54:02 CDT CPT-J0696 Rocephin 1000 mg (Ceftriaxone) 16:00:32 CDT CPT-04319 Chest 2V Frontal and Lat 15:26:45 CDT CPT-32604 Chest 2V Frontal and Lat 10:23:27 CDT CPT-93977 Venipuncture Draw Fee 10:11:00 CDT CPT-17735 Administration single or combination vaccine inc oral 11 :56:38 CDT CPT-88801 Influenza split virus > age 3 11:56:38 CDT CPT-52074 Venipuncture Draw Fee 08:49:54 EMBLEM DRAWER IN CPT-94002 EKG Trac and Interp 17:54:19 EMBLEM DRAWER IN
--- OUTSIDE RECORDS SUMMARY | 2018-07-02 20:58 | XMS REPORT | Clinical Summary ---
Author Author Admin, TERELL Organization [facility] Address Unknown Phone Unavailable Allergies, Adverse [...] by mouth nightly, for pain MORPHINE SULFATE [id number] Active Alina Castaneda MD PhD Active LATUDA 80 MG TABS 1 tab by mouth every evening LURASIDONE HCL 96659382692 Active Alina Castaneda MD PhD Active UROXATRAL 10 MG [id number]-[id number] Take 1 tablet by mouth daily ALFUZOSIN HCL 79941375569 No Longer Active Alina Castaneda MD PhD Active THIOTHIXENE 5 MG CAPS by mouth twice a day THIOTHIXENE 29076050194 No Longer Active Alina Castaneda MD PhD Active ZYPREXA 7.5 MG TABS 1 at HS OLANZAPINE 63575986190 No Longer Active Alina Castaneda MD PhD Active HUMALOG 100 UNIT/ML SOLN Take 20 units with breakfast, 10u with lunch and suppetr. INSULIN LISPRO (HUMAN) 83505356572 Active Maliheh Ziglari [employer] HELPER Active LEVEMIR 100 UNIT/ML SOLN Take 70 u at 7-8pm INSULIN DETEMIR 58854478432 Active Maliheh Ziglari [employer]ENDER HELPER Active BD INSULIN SYRINGE 28G X 1/2" 1 ML MISC 1 four times per day INSULIN SYRINGE-NEEDLE U-100 04566623892 Active Maliheh Ziglari [employer]ENDER HELPER Active CYCLOBENZAPRINE HCL 10 MG TABS 1 tablet by mouth three times daily, scheduled CYCLOBENZAPRINE HCL 95263690513 Active Alina Castaneda MD PhD Active TOLTERODINE TARTRATE 2 MG TABS 1 pill twice daily, for bladder TOLTERODINE TARTRATE 43290262978 Active Alina Castaneda MD PhD Active DETROL LA 4 MG [id number] Take 1 tablet by mouth daily TOLTERODINE TARTRATE 85718137288 No Longer Active Alina Castaneda MD PhD Active HYDROCODONE-ACETAMINOPHEN 5-325 MG TABS 2 tabs by mouth three times daily as needed for pain HYDROCODONE-ACETAMINOPHEN 80718488675 Active Alina Castaneda MD PhD Active TERESE CONTOUR TEST STRP monitor blood sugars 3x/day GLUCOSE BLOOD 99272499887 No Longer Active Alina Castaneda MD PhD Active EQL TRUETEST TEST STRP Test blood sugar TID GLUCOSE BLOOD 76574862013 No Longer Active Alina Castaneda MD PhD Active FLUTICASONE PROPIONATE 50 MCG/ACT SUSP 2 sprays each nostril qDay x 30 days FLUTICASONE PROPIONATE 59100342352 No Longer Active Alina Castaneda MD PhD Active IBUPROFEN 200 MG TABS 1 Q 6 hr. PRN IBUPROFEN 02312042008 No Longer Active Alina Castaneda MD PhD Active NIACIN ER 500 MG CR-TABS 4 qHS (for triglycerides) NIACIN 12831962953 No Longer Active Alina Castaneda MD PhD Active TRUETEST TEST STRP check sugars 4x/day GLUCOSE BLOOD 23103068156 Active Marvel Mackenzieglari [employer]ENDER HELPER Active ALFUZOSIN HCL ER 10 MG [id number] 1 tablet daily ALFUZOSIN HCL 23087552647 Active Vanessa Hickey MD Active CLONAZEPAM 1 MG TABS 1 pill by mouth three times daily CLONAZEPAM 64804134382 Active Alina Castaneda MD PhD Active LOVAZA 1 GM CAPS 4 daily (for triglycerides) XTMIO-3-MAMU ETHYL ESTERS 76696413672 Active Alina Castaneda MD PhD Active SAPHRIS 5 MG SUBL by mouth twice a day ASENAPINE MALEATE 67492404714 No Longer Active Marvel MENDOZAP Active ACETAMINOPHEN 500 MG TABS 2 Q 6 hr. PRN ACETAMINOPHEN 35491998917 No Longer Active Marvel Thurstonari [employer]ER HELPER Active VERAPAMIL HCL ER 120 MG [id number] 1 pill by mouth twice a day, for headache prevention/control VERAPAMIL HCL 47476962100 Active Alina Castaneda MD PhD Active ORPHENADRINE CITRATE ER 100 MG [id number] 1 every 12 hr. as needed ORPHENADRINE CITRATE 66806362400 No Longer Active Alina Castaneda MD PhD Active NIACIN CR 500 MG CR-TABS 2 qHS NIACIN 36715455320 No Longer Active Alina Castaneda MD PhD Active AMOXICILLIN 500 MG CAPS 2 po BID x 10 days AMOXICILLIN 57530413782 No Longer Active Alina Castaneda MD PhD Active HYDROCODONE-ACETAMINOPHEN 7.5-325 MG TABS 1 four times a day as needed for pain HYDROCODONE-ACETAMINOPHEN 75203937455 No Longer Active Alina Castaneda MD PhD Active METFORMIN HCL ER 500 MG NZ04A-CLI Take three tablets by mouth everyday METFORMIN HCL 51614333641 Active Alina Castaneda MD PhD Active DOXEPIN HCL 10 MG CAPS Take 1 tablet by mouth daily DOXEPIN HCL 41517760865 No Longer Active Salina Han [facility] Active NAVANE 10 MG CAPS 1/2 tablet twice a day THIOTHIXENE No Longer Active Salina Han [facility] Active CYCLOBENZAPRINE HCL 10 MG TABS 1/2 tablet by mouth every 8 hours as needed for muscle spasms CYCLOBENZAPRINE HCL 99067773459 No Longer Active Alina Castaneda MD PhD Active BACTROBAN 2 % CREAM apply to ear and nose twice daily MUPIROCIN CALCIUM 51793722253 No Longer Active Alina Castaneda MD PhD Active HYDROCODONE-ACETAMINOPHEN 5-325 MG TABS take one tablet by mouth every four hours as needed for pain HYDROCODONE-ACETAMINOPHEN 29203251819 No Longer Active Alina Castaneda MD PhD Active ZOLPIDEM TARTRATE 10 MG TABS take at bedtime ZOLPIDEM TARTRATE 30013865674 Active Alina Castaneda MD PhD Active ZYPREXA 5 MG TABS take one tablet by mouth every evening OLANZAPINE 91763163642 No Longer Active Alina Castaneda MD PhD Active ALBUTEROL SULFATE 0.083 % NEBU SOLN one vial per nebulizer TID and PRN cough/ soa ALBUTEROL SULFATE 20933971309 No Longer Active Alina Castaneda MD PhD Active GUAIFENESIN 600 MG [id number]-SNT 1 tablet by mouth twice daily if needed for cough GUAIFENESIN 20575453559 No Longer Active Marvel MARROQUIN Active AZITHROMYCIN 500 MG SOLR 1 po q day AZITHROMYCIN 67462420214 No Longer Active Alina Castaneda MD PhD Active METOPROLOL SUCCINATE 100 MG [id number]-[id number] 1 by mouth daily for blood pressure METOPROLOL SUCCINATE 16766291063 Active Alina Castaneda MD PhD Active PROMETHAZINE-CODEINE 6.25-10 MG/5ML SYRP 1 tsp po q 6 hours prn cough PROMETHAZINE-CODEINE 40302839408 No Longer Active Alina Castaneda MD PhD Active CEFDINIR 300 MG CAPS by mouth twice a day CEFDINIR 72902197678 No Longer Active Alina Castaneda MD PhD Active METFORMIN HCL 500 MG [id number]-YBZ Take 3 tablets by mouth everyday METFORMIN HCL 26755599479 No Longer Active Alina Castaneda MD PhD Active LEVEMIR 100 UNIT/ML SOLN 90 units SQ qHS INSULIN DETEMIR 65226485466 No Longer Active Marvel MARROQUIN Active TOPROL XL 100 MG IS38O-ZUG 1 @ HS METOPROLOL SUCCINATE 62306415840 No Longer Active Marvel MARROQUIN Active ALLOPURINOL 300 MG TABS Take one by mouth daily ALLOPURINOL 87320690724 Active Alina Castaneda MD PhD Active ZYPREXA 10 MG TABS Take one by mouth daily OLANZAPINE 81865940872 No Longer Active Alina Castaneda MD PhD Active NOVOLOG 100 UNIT/ML SOLN 40 units with every meal INSULIN ASPART 61254882412 No Longer Active Alina Castaneda MD PhD Active VERAPAMIL HCL CR 120 MG TAB CR 1 qPM VERAPAMIL HCL 99417598987 No Longer Active Salina Han [facility] Active ZYPREXA 15 MG TABS Take 1 tablet by mouth daily OLANZAPINE 21429315050 No Longer Active Marvel MARROQUIN Active LISINOPRIL 20 MG TABS 1 BID LISINOPRIL 03809562937 Active Alian Castaneda MD PhD Active ALBUTEROL SULFATE (2.5 MG/3ML) 0.083% NEBU 1 neb tid and prn cough ALBUTEROL SULFATE 46495157207 No Longer Active Alina Castaneda MD PhD Active FLUVOXAMINE MALEATE 100 MG TABS Take one (1) tablet by mouth am, 05/25 at noon, 1 pm FLUVOXAMINE MALEATE 33767263681 Active Alina Castaneda MD PhD Active TRAVATAN Z 0.004 % SOLN 1 gtt each eye daily TRAVOPROST 28922151080 Active CRYSTAL Suarez Active LANTUS 100 UNIT/ML SOLN 60 units sq q hs INSULIN GLARGINE 71780233731 No Longer Active CRYSTAL Suarez Active ALBUTEROL SULFATE (2.5 MG/3ML) 0.083% NEBU 1 neb tid and prn cough ALBUTEROL SULFATE (2.5 MG/3ML) 0.083% NEBU 346435 ALBUTEROL SULFATE Inactive ZYPREXA 15 MG TABS Take 1 tablet by mouth daily ZYPREXA 15 MG TABS 801216 OLANZAPINE Inactive VERAPAMIL HCL CR 120 MG TAB CR 1 qPM VERAPAMIL HCL CR 120 MG TAB CR VERAPAMIL HCL Inactive ZYPREXA 10 MG TABS Take one by mouth daily ZYPREXA 10 MG TABS 806140 OLANZAPINE Inactive TOPROL XL 100 MG [id number] 1 @ HS TOPROL XL 100 MG [id number]-ASJ METOPROLOL SUCCINATE Inactive LEVEMIR 100 UNIT/ML SOLN 90 units SQ qHS LEVEMIR 100 UNIT/ML SOLN INSULIN DETEMIR Inactive PROMETHAZINE-CODEINE 6.25-10 MG/5ML SYRP 1 tsp po q 6 hours prn cough PROMETHAZINE-CODEINE 6.25-10 MG/5ML SYRP 286181 PROMETHAZINE- CODEINE Inactive GUAIFENESIN 600 MG BC70O-QTH 1 tablet by mouth twice daily if needed for cough GUAIFENESIN 600 MG [id number]-SGM GUAIFENESIN Inactive ALBUTEROL SULFATE 0.083 % NEBU SOLN one vial per nebulizer TID and PRN cough/ soa ALBUTEROL SULFATE 0.083 % [facility] 371529 ALBUTEROL SULFATE Inactive ZYPREXA 5 MG TABS take one tablet by mouth every evening ZYPREXA 5 MG TABS 414844 OLANZAPINE Inactive HYDROCODONE-ACETAMINOPHEN 5-325 MG TABS take one tablet by mouth every four hours as needed for pain HYDROCODONE-ACETAMINOPHEN 5-325 MG TABS 738565 HYDROCODONE-ACETAMINOPHEN Inactive BACTROBAN 2 % CREAM apply to ear and nose twice daily BACTROBAN 2 % CREAM 718627 MUPIROCIN CALCIUM Inactive CYCLOBENZAPRINE HCL 10 MG TABS 1/2 tablet by mouth every 8 hours as needed for muscle spasms CYCLOBENZAPRINE HCL 10 MG TABS 901548 CYCLOBENZAPRINE HCL Inactive NAVANE 10 MG CAPS 1/2 tablet twice a day NAVANE 10 MG CAPS THIOTHIXENE Inactive DOXEPIN HCL 10 MG CAPS Take 1 tablet by mouth daily DOXEPIN HCL 10 MG CAPS 0529561 DOXEPIN HCL Inactive HYDROCODONE-ACETAMINOPHEN 7.5-325 MG TABS 1 four times a day as needed for pain HYDROCODONE-ACETAMINOPHEN 7.5-325 MG TABS 167111 HYDROCODONE-ACETAMINOPHEN Inactive NIACIN CR 500 MG CR-TABS 2 qHS NIACIN CR 500 MG CR- TABS NIACIN Inactive ORPHENADRINE CITRATE ER 100 MG [id number] 1 every 12 hr. as needed ORPHENADRINE CITRATE ER 100 MG [id number]-TSX ORPHENADRINE CITRATE Inactive ACETAMINOPHEN 500 MG TABS 2 Q 6 hr. PRN ACETAMINOPHEN 500 MG TABS 827827 ACETAMINOPHEN Inactive SAPHRIS 5 MG SUBL by mouth twice a day SAPHRIS 5 MG SUBL ASENAPINE MALEATE Inactive NIACIN ER 500 MG CR-TABS 4 qHS (for triglycerides) NIACIN ER 500 MG CR-TABS NIACIN Inactive IBUPROFEN 200 MG TABS 1 Q 6 hr. PRN IBUPROFEN 200 MG TABS 496533 IBUPROFEN Inactive FLUTICASONE PROPIONATE 50 MCG/ACT SUSP 2 sprays each nostril qDay x 30 days FLUTICASONE PROPIONATE 50 MCG/ACT SUSP 184377 FLUTICASONE PROPIONATE Inactive EQL TRUETEST TEST STRP Test blood sugar TID EQL TRUETEST TEST STRP GLUCOSE BLOOD Inactive TERESE CONTOUR TEST STRP monitor blood sugars 3x/day TERESE CONTOUR TEST STRP GLUCOSE BLOOD Inactive DETROL LA 4 MG [id number] Take 1 tablet by mouth daily DETROL LA 4 MG [id number] TOLTERODINE TARTRATE Inactive ZYPREXA 7.5 MG TABS 1 at HS ZYPREXA 7.5 MG TABS 148836 OLANZAPINE Inactive THIOTHIXENE 5 MG CAPS by mouth twice a day THIOTHIXENE 5 MG CAPS 929637 THIOTHIXENE Inactive UROXATRAL 10 MG AW86M-TTC Take 1 tablet by mouth daily UROXATRAL 10 MG AU30D-UQK ALFUZOSIN HCL Inactive CEFDINIR 300 MG CAPS by mouth twice a day CEFDINIR 300 MG CAPS 038238 CEFDINIR Inactive AZITHROMYCIN 500 MG SOLR 1 po q day AZITHROMYCIN 500 MG SOLR 849089 AZITHROMYCIN Inactive AMOXICILLIN 500 MG CAPS 2 po BID x 10 days AMOXICILLIN 500 MG CAPS 279387 AMOXICILLIN Inactive Immunizations Vaccine Administration Date Value [...] Fluvirin, Fluarix, Agriflu(>=18 yo)) Fluzone (>3 yrs.) [UCG675] Influenza, seasonal, injectable pneumococcal immunization administered Pneumovax [...] HGBA1C - Chemistry sodium, serum 130 mmol/L 413-861 0052/06/09 potassium, serum 4.0 mmol/L 3.5-5.2 chloride, serum [...] 6.0 mg/dL 2.6-7.2 sodium, serum 130 mmol/L 533-788 2246/05/01 potassium, serum 5.2 mmol/L 3.5-5.2 chloride, serum [...] 0.40 mg/dL 0.00-1.00 cholesterol, serum 151 mg/dL 093-617 7105/05/01 triglyceride, serum, fasting 356 mg/dL 30-200 HDL [...] HGBA1C - Chemistry sodium, serum 126 mmol/L 585-133 2835/02/26 potassium, serum 4.8 mmol/L 3.5-5.2 chloride, serum [...] mg/dL Encounters Code Encounter Date Provider Facility CPT-14127 Level 3 Est. Patient 09:32:11 CDT Marvel MARROQUIN [facility] CPT-93512 Level 3 Est. Patient 12:02:49 CDT Alina Castaneda MD PhD [facility] CPT-33252 Level 3 Est. Patient 19:17:33 CDT Alina Castaneda MD PhD [facility] CPT-23999 Level 3 Est. Patient 13:19:10 CDT Marvel [facility]-16337 Level 3 Est. Patient 08:20:05 CDT Alina Castaneda MD [facility] [place] Level 3 Est. Patient 15:17:18 CDT Alina Castaneda MD [facility] [place] Level 3 Est. Patient 14:25:36 [employer]OO[employer] HEL[employer] Marvel [facility]-77295 Level 3 Est. Patient 10:09:15 [employer]OOFER HEL[employer] Marvel [facility]-29861 Level 3 Est. Patient 21:28:43 CDT Alina Castaneda MD [facility] [place] Level 3 Est. Patient 15:20:11 [facility] Patient 19:08:12 CDT Alina Castaneda MD [facility]-84215 Level 3 Est. Patient 15:06:39 CDT Marvel [facility]-81532 Level 4 Est. Patient 17:48:15 CDT Alina Castaneda MD [facility]-19956 Level 3 Est. Patient 14:53:49 CDT Alina Castaneda MD [facility]-09415 Level 3 Est. Patient 09:35:16 CDT Alina Castaneda MD [facility]-76726 Level 3 Est. Patient 12:23:22 CDT Alina Castaneda MD [facility]-54119 Level 3 Est. Patient 16:19:15 CDT Alina Castaneda MD [facility] [place] Level 3 Est. Patient 21:39:56 [employer]OO[employer] Alina Castaneda MD [facility]-90876 Level 4 Est. Patient 14:12:56 [employer]OOFER HEL[employer]ATING Alina Castaneda MD [facility]-29905 Level 2 Est. Patient 15:34:57 ROOFER HELPER [employer]ATING Alina Castaneda MD [facility] [place] Level 3 Est. Patient 12:17:04 ROOFER HELPER [employer]ATING Alina Castaneda MD [facility] [place] Level 3 Est. Patient 09:18:18 ROOFER HELPER [employer]ATING Marvel [facility]-03007 Level 2 Est. Patient 21:50:24 CDT Alina Castaneda MD [facility] [place] Level 3 Est. Patient 09:17:28 CDT Marvel [facility]-03175 Level 4 Est. Patient 18:54:02 CDT Alina Castaneda MD [facility]-23043 Level 3 Est. Patient 10:47:10 CDT Alina Castaneda MD [facility]-44341 Level 3 Est. Patient 09:22:20 CDT Marvel [facility]-78797 Level 3 Est. Patient 16:39:43 CDT Marvel [facility]-46797 Level 3 Est. Patient 16:05:16 CDT Alina Castaneda MD [facility]-53926 Level 3 Est. Patient 00:29:15 CDT Alina Castaneda MD [facility] [place] Level 3 Est. Patient 10:49:22 ROOFER HEL[employer] Marvel [facility]-03710 Level 3 Est. Patient 21:30:19 [employer]OOFER HEL[employer] Alina Castaneda MD PhD [facility] CPT-69192 Level 4 Est. Patient 17:04:11 ROOFER HELPER [employer]ATING Marvel Charles [facility] CPT-19725 Level 3 Est. Patient 15:34:11 ROOFER HELPER [employer] COATING Marvel Charles [facility] CPT-67519 Level 2 Est. Patient 12:51:58 ROOFER HELPER [employer]ATING Alina Castaneda MD [facility] CPT-15121 Level 3 Est. Patient 13:20:01 ROOFER HEL[employer] Alina Castaneda MD PhD [facility] CPT-62622 Level 3 Est. Patient 09:23:35 CDT Alina Castaneda MD [facility] Procedures Code Procedure Name Date Entry Date Standard Description CPT-G0008 Administration of Influenza Virus Vaccine 13:05:26 CDT CPT-91283 Fluzone Quadrivalent Intramuscular Suspension 0.5 ML 13: 05:26 CDT CPT-10553 Administration single or combination vaccine inc oral 11 :49:51 CDT CPT-77438 Pneumovax 11:49:51 CDT CPT-67081 Ribs unilateral 2V 12:37:22 [employer] CPT-87377 Chest 2V Frontal and Lat 17:15:26 CDT CPT-55728 Abx/Therapy Injection 18:54:02 CDT CPT-J0696 Rocephin 1000 mg (Ceftriaxone) 16:00:32 CDT CPT-10900 Chest 2V Frontal and Lat 15:26:45 CDT CPT-46055 Chest 2V Frontal and Lat 10:23:27 CDT CPT-79603 Venipuncture Draw Fee 10:11:00 CDT CPT-94636 Administration single or combination vaccine inc oral 11 :56:38 CDT CPT-28890 Influenza split virus > age 3 11:56:38 CDT CPT-05596 Venipuncture Draw Fee 08:49:54 [employer] CPT-16079 EKG Trac and Interp 17:54:19 ROOFER HEL[employer]ATING
--- OUTSIDE RECORDS SUMMARY | 2018-07-02 20:59 | XMS REPORT | Clinical Summary ---
Author Author Admin, TERELL Organization [facility] Address Unknown Phone Unavailable Allergies, Adverse Reactions, [...] evening for chronic pain control MORPHINE SULFATE [id number] Active Alina Castaneda MD PhD Active LATUDA 80 MG TABS 1 tab by mouth every evening LURASIDONE HCL 76683107472 Active Alina Castaneda MD PhD Active UROXATRAL 10 MG [id number] Take 1 tablet by mouth daily ALFUZOSIN HCL 45009271852 No Longer Active Alina Castaneda MD PhD Active THIOTHIXENE 5 MG CAPS by mouth twice a day THIOTHIXENE 63081462002 No Longer Active Alina Castaneda MD PhD Active ZYPREXA 7.5 MG TABS 1 at HS OLANZAPINE 11929092249 No Longer Active Alina Castaneda MD PhD Active HUMALOG 100 UNIT/ML SOLN Take 20 units with breakfast, 10u with lunch and suppetr. INSULIN LISPRO (HUMAN) 62310011555 Active Maljohn Ziglari ETHERNET NETWORK ARCHITECT Active LEVEMIR 100 UNIT/ML SOLN Take 70 u at 7-8pm INSULIN DETEMIR 98442200800 Active Marvel Ziglari ETHERNET NETWORK ARCHITECT Active BD INSULIN SYRINGE 28G X 1/2" 1 ML MISC 1 four times per day INSULIN SYRINGE-NEEDLE U-100 19968951733 Active Marvel Mackenzieglari ETHERNET NETWORK ARCHITECT Active CYCLOBENZAPRINE HCL 10 MG TABS 1 tablet by mouth three times daily, scheduled CYCLOBENZAPRINE HCL 50778179991 Active Alina Castaneda MD PhD Active TOLTERODINE TARTRATE 2 MG TABS 1 pill twice daily, for bladder TOLTERODINE TARTRATE 72192801078 Active Alina Castaneda MD PhD Active DETROL LA 4 MG [id number] Take 1 tablet by mouth daily TOLTERODINE TARTRATE 20300912337 No Longer Active Alina Castaneda MD PhD Active HYDROCODONE-ACETAMINOPHEN 5-325 MG TABS 2 tabs by mouth three times daily as needed for pain HYDROCODONE-ACETAMINOPHEN 91112823628 Active Alina Castaneda MD PhD Active TERESE CONTOUR TEST STRP monitor blood sugars 3x/day GLUCOSE BLOOD 25388402137 No Longer Active Alina Castaneda MD PhD Active EQL TRUETEST TEST STRP Test blood sugar TID GLUCOSE BLOOD 27199437213 No Longer Active Alina Castaneda MD PhD Active FLUTICASONE PROPIONATE 50 MCG/ACT SUSP 2 sprays each nostril qDay x 30 days FLUTICASONE PROPIONATE 72772003733 No Longer Active Alina Castaneda MD PhD Active IBUPROFEN 200 MG TABS 1 Q 6 hr. PRN IBUPROFEN 08044591771 No Longer Active Alina Castaneda MD PhD Active NIACIN ER 500 MG CR-TABS 4 qHS (for triglycerides) NIACIN 94912668256 No Longer Active Alina Castaneda MD PhD Active TRUETEST TEST STRP check sugars 4x/day GLUCOSE BLOOD 15396524350 Active Alina Castaneda MD PhD Active ALFUZOSIN HCL ER 10 MG [id number] 1 tablet daily ALFUZOSIN HCL 12854947235 Active Vanessa Hickey MD Active CLONAZEPAM 1 MG TABS 1 pill by mouth three times daily CLONAZEPAM 74694799289 Active Alina Castaneda MD PhD Active LOVAZA 1 GM CAPS 4 daily (for triglycerides) [id number] ETHYL ESTERS 00876338907 Active Alina Castaneda MD PhD Active SAPHRIS 5 MG SUBL by mouth twice a day ASENAPINE MALEATE 49372520861 No Longer Active Marvel MENDOZAP Active ACETAMINOPHEN 500 MG TABS 2 Q 6 hr. PRN ACETAMINOPHEN 95078702196 No Longer Active Maljohn Mackenzieglari ETHERNET NETWORK ARCHITECT Active VERAPAMIL HCL ER 120 MG [id number] 1 pill by mouth twice a day, for headache prevention/control VERAPAMIL HCL 03963578770 Active Alina Castaneda MD PhD Active ORPHENADRINE CITRATE ER 100 MG [id number] 1 every 12 hr. as needed ORPHENADRINE CITRATE 78165951170 No Longer Active Alina Castaneda MD PhD Active NIACIN CR 500 MG CR-TABS 2 qHS NIACIN 81201075138 No Longer Active Alina Castaneda MD PhD Active AMOXICILLIN 500 MG CAPS 2 po BID x 10 days AMOXICILLIN 72512466281 No Longer Active Alina Castaneda MD PhD Active HYDROCODONE-ACETAMINOPHEN 7.5-325 MG TABS 1 four times a day as needed for pain HYDROCODONE-ACETAMINOPHEN 35167375212 No Longer Active Alina Castaenda MD PhD Active METFORMIN HCL ER 500 MG [id number] Take three tablets by mouth everyday METFORMIN HCL 43079198780 Active Alina Castaneda MD PhD Active DOXEPIN HCL 10 MG CAPS Take 1 tablet by mouth daily DOXEPIN HCL 44036876237 No Longer Active Salina Han RMA Active NAVANE 10 MG CAPS 1/2 tablet twice a day THIOTHIXENE No Longer Active Salina Han RMA Active CYCLOBENZAPRINE HCL 10 MG TABS 1/2 tablet by mouth every 8 hours as needed for muscle spasms CYCLOBENZAPRINE HCL 58509856326 No Longer Active Alian Castaneda MD PhD Active BACTROBAN 2 % CREAM apply to ear and nose twice daily MUPIROCIN CALCIUM 48542268777 No Longer Active Alina Castaneda MD PhD Active HYDROCODONE-ACETAMINOPHEN 5-325 MG TABS take one tablet by mouth every four hours as needed for pain HYDROCODONE-ACETAMINOPHEN 35357277335 No Longer Active Alina Castaneda MD PhD Active ZOLPIDEM TARTRATE 10 MG TABS take at bedtime ZOLPIDEM TARTRATE 34006230157 Active Alina Castaneda MD PhD Active ZYPREXA 5 MG TABS take one tablet by mouth every evening OLANZAPINE 01329006681 No Longer Active Alina Castaneda MD PhD Active ALBUTEROL SULFATE 0.083 % NEBU SOLN one vial per nebulizer TID and PRN cough/ soa ALBUTEROL SULFATE 67158367493 No Longer Active Alina Castaneda MD PhD Active GUAIFENESIN 600 MG [id number] 1 tablet by mouth twice daily if needed for cough GUAIFENESIN 65234094478 No Longer Active Marvel Charles ETHERNET NETWORK ARCHITECT Active AZITHROMYCIN 500 MG SOLR 1 po q day AZITHROMYCIN 07431179128 No Longer Active Alina Castaneda MD PhD Active METOPROLOL SUCCINATE 100 MG [id number] 1 by mouth daily for blood pressure METOPROLOL SUCCINATE 34755538888 Active Alina Castaneda MD PhD Active PROMETHAZINE-CODEINE 6.25-10 MG/5ML SYRP 1 tsp po q 6 hours prn cough PROMETHAZINE-CODEINE 16925290867 No Longer Active Alina Castaneda MD PhD Active CEFDINIR 300 MG CAPS by mouth twice a day CEFDINIR 99069568588 No Longer Active Alina Castaneda MD PhD Active METFORMIN HCL 500 MG [id number] Take 3 tablets by mouth everyday METFORMIN HCL 52815622517 No Longer Active Alina Castaneda MD PhD Active LEVEMIR 100 UNIT/ML SOLN 90 units SQ qHS INSULIN DETEMIR 96382675706 No Longer Active Marvel MARROQUIN Active TOPROL XL 100 MG [id number] 1 @ HS METOPROLOL SUCCINATE 28687728653 No Longer Active Marvel MARROQUIN Active ALLOPURINOL 300 MG TABS Take one by mouth daily ALLOPURINOL 61037844966 Active Alina Castaneda MD PhD Active ZYPREXA 10 MG TABS Take one by mouth daily OLANZAPINE 14720274109 No Longer Active Alina Castaneda MD PhD Active NOVOLOG 100 UNIT/ML SOLN 40 units with every meal INSULIN ASPART 39191341348 No Longer Active Alina Castaneda MD PhD Active VERAPAMIL HCL CR 120 MG TAB CR 1 qPM VERAPAMIL HCL 85311114987 No Longer Active Salina Han [facility] Active ZYPREXA 15 MG TABS Take 1 tablet by mouth daily OLANZAPINE 50046932712 No Longer Active Marvel MARROQUIN Active LISINOPRIL 20 MG TABS 1 BID LISINOPRIL 92423781410 Active Alina Castaneda MD PhD Active ALBUTEROL SULFATE (2.5 MG/3ML) 0.083% NEBU 1 neb tid and prn cough ALBUTEROL SULFATE 00559215397 No Longer Active Alina Castaneda MD PhD Active FLUVOXAMINE MALEATE 100 MG TABS Take one (1) tablet by mouth am, 1/2 at noon, 1 pm FLUVOXAMINE MALEATE 23003447447 Active Alina Castaneda MD PhD Active TRAVATAN Z 0.004 % SOLN 1 gtt each eye daily TRAVOPROST 86203315749 Active CRYSTAL Suarez Active LANTUS 100 UNIT/ML SOLN 60 units sq q hs INSULIN GLARGINE 66875331229 No Longer Active CRYSTAL Suarez Active ALBUTEROL SULFATE (2.5 MG/3ML) 0.083% NEBU 1 neb tid and prn cough ALBUTEROL SULFATE (2.5 MG/3ML) 0.083% NEBU 207081 ALBUTEROL SULFATE Inactive ZYPREXA 15 MG TABS Take 1 tablet by mouth daily ZYPREXA 15 MG TABS 761123 OLANZAPINE Inactive VERAPAMIL HCL CR 120 MG TAB CR 1 qPM VERAPAMIL HCL CR 120 MG TAB CR VERAPAMIL HCL Inactive ZYPREXA 10 MG TABS Take one by mouth daily ZYPREXA 10 MG TABS 712959 OLANZAPINE Inactive TOPROL XL 100 MG [id number] 1 @ HS TOPROL XL 100 MG [id number] METOPROLOL SUCCINATE Inactive LEVEMIR 100 UNIT/ML SOLN 90 units SQ qHS LEVEMIR 100 UNIT/ML SOLN INSULIN DETEMIR Inactive PROMETHAZINE-CODEINE 6.25-10 MG/5ML SYRP 1 tsp po q 6 hours prn cough PROMETHAZINE-CODEINE 6.25-10 MG/5ML SYRP 975072 PROMETHAZINE- CODEINE Inactive GUAIFENESIN 600 MG SS65U-BLJ 1 tablet by mouth twice daily if needed for cough GUAIFENESIN 600 MG [id number] GUAIFENESIN Inactive ALBUTEROL SULFATE 0.083 % NEBU SOLN one vial per nebulizer TID and PRN cough/ soa ALBUTEROL SULFATE 0.083 % NEBU SOLN 642129 ALBUTEROL SULFATE Inactive ZYPREXA 5 MG TABS take one tablet by mouth every evening ZYPREXA 5 MG TABS 965424 OLANZAPINE Inactive HYDROCODONE-ACETAMINOPHEN 5-325 MG TABS take one tablet by mouth every four hours as needed for pain HYDROCODONE-ACETAMINOPHEN 5-325 MG TABS 806447 HYDROCODONE-ACETAMINOPHEN Inactive BACTROBAN 2 % CREAM apply to ear and nose twice daily BACTROBAN 2 % CREAM 826914 MUPIROCIN CALCIUM Inactive CYCLOBENZAPRINE HCL 10 MG TABS 1/2 tablet by mouth every 8 hours as needed for muscle spasms CYCLOBENZAPRINE HCL 10 MG TABS 581216 CYCLOBENZAPRINE HCL Inactive NAVANE 10 MG CAPS 1/2 tablet twice a day NAVANE 10 MG CAPS THIOTHIXENE Inactive DOXEPIN HCL 10 MG CAPS Take 1 tablet by mouth daily DOXEPIN HCL 10 MG CAPS 4866019 DOXEPIN HCL Inactive HYDROCODONE-ACETAMINOPHEN 7.5-325 MG TABS 1 four times a day as needed for pain HYDROCODONE-ACETAMINOPHEN 7.5-325 MG TABS 272701 HYDROCODONE-ACETAMINOPHEN Inactive NIACIN CR 500 MG CR-TABS 2 qHS NIACIN CR 500 MG CR- TABS NIACIN Inactive ORPHENADRINE CITRATE ER 100 MG [id number] 1 every 12 hr. as needed ORPHENADRINE CITRATE ER 100 MG [id number]-ASW ORPHENADRINE CITRATE Inactive ACETAMINOPHEN 500 MG TABS 2 Q 6 hr. PRN ACETAMINOPHEN 500 MG TABS 735262 ACETAMINOPHEN Inactive SAPHRIS 5 MG SUBL by mouth twice a day SAPHRIS 5 MG SUBL ASENAPINE MALEATE Inactive NIACIN ER 500 MG CR-TABS 4 qHS (for triglycerides) NIACIN ER 500 MG CR-TABS NIACIN Inactive IBUPROFEN 200 MG TABS 1 Q 6 hr. PRN IBUPROFEN 200 MG TABS 968911 IBUPROFEN Inactive FLUTICASONE PROPIONATE 50 MCG/ACT SUSP 2 sprays each nostril qDay x 30 days FLUTICASONE PROPIONATE 50 MCG/ACT SUSP 192399 FLUTICASONE PROPIONATE Inactive EQL TRUETEST TEST STRP Test blood sugar TID EQL TRUETEST TEST STRP GLUCOSE BLOOD Inactive TERESE CONTOUR TEST STRP monitor blood sugars 3x/day TERESE CONTOUR TEST STRP GLUCOSE BLOOD Inactive DETROL LA 4 MG [id number] Take 1 tablet by mouth daily DETROL LA 4 MG [id number] TOLTERODINE TARTRATE Inactive ZYPREXA 7.5 MG TABS 1 at HS ZYPREXA 7.5 MG TABS 823463 OLANZAPINE Inactive THIOTHIXENE 5 MG CAPS by mouth twice a day THIOTHIXENE 5 MG CAPS 823887 THIOTHIXENE Inactive UROXATRAL 10 MG [id number]-MCF Take 1 tablet by mouth daily UROXATRAL 10 MG HL62I-NNG ALFUZOSIN HCL Inactive CEFDINIR 300 MG CAPS by mouth twice a day CEFDINIR 300 MG CAPS 762364 CEFDINIR Inactive AZITHROMYCIN 500 MG SOLR 1 po q day AZITHROMYCIN 500 MG SOLR 570550 AZITHROMYCIN Inactive AMOXICILLIN 500 MG CAPS 2 po BID x 10 days AMOXICILLIN 500 MG CAPS 905135 AMOXICILLIN Inactive Immunizations Vaccine Administration Date Value [...] Fluvirin, Fluarix, Agriflu(>=18 yo)) Fluzone (>3 yrs.) [[id number]] Influenza, seasonal, injectable pneumococcal immunization administered Pneumovax [...] HGBA1C - Chemistry sodium, serum 130 mmol/L 422-567 0160/06/09 potassium, serum 4.0 mmol/L 3.5-5.2 chloride, serum [...] 6.0 mg/dL 2.6-7.2 sodium, serum 130 mmol/L 327-156 0955/05/01 potassium, serum 5.2 mmol/L 3.5-5.2 chloride, serum [...] 0.40 mg/dL 0.00-1.00 cholesterol, serum 151 mg/dL 399-945 8539/05/01 triglyceride, serum, fasting 356 mg/dL 30-200 HDL [...] HGBA1C - Chemistry sodium, serum 126 mmol/L 289-566 2040/02/26 potassium, serum 4.8 mmol/L 3.5-5.2 chloride, serum [...] mg/dL Encounters Code Encounter Date Provider Facility CPT-59610 Level 3 Est. Patient 19:17:33 CDT Alina Castaneda MD PhD [facility] CPT-62011 Level 3 Est. [facility]-88602 Level 3 Est. Patient 08:20:05 CDT Alina Castaneda MD PhD [facility] CPT-27068 Level 3 Est. Patient 15:17:18 CDT Alina Castaneda MD PhD [facility] CPT-83704 Level 3 Est. Patient 14:25:36 NEUROLOGICAL SURGEON Marvel [facility] CPT-98938 Level 3 Est. Patient 10:09:15 [facility] CPT-76948 Level 3 Est. Patient 21:28:43 CDT Alina Castaneda MD PhD [facility]-70677 Level 3 Est. Patient 15:20:11 [facility] CPT-82125 Level 4 Est. Patient 19:08:12 CDT Alina [facility]-25223 Level 3 Est. Patient 15:06:39 CDT Marvel [facility]-93922 Level 4 Est. Patient 17:48:15 CDT Alina Castaneda MD [facility] 2001-39674 Level 3 Est. Patient 14:53:49 CDT Alina Castaneda MD [facility] 2001-21581 Level 3 Est. Patient 09:35:16 CDT Alina Castaneda MD [facility] 2001-68383 Level 3 Est. Patient 12:23:22 CDT Alina Castaneda MD [facility] 2001-60330 Level 3 Est. Patient 16:19:15 CDT Alina Castaneda MD [facility] 2001-48124 Level 3 Est. Patient 21:39:56 NEUROLOGICAL SURGEON Alina Castaneda MD [facility] 2001-77285 Level 4 Est. Patient 14:12:56 NEUROLOGICAL SURGEON Alina Castaneda MD [facility] [id number] Level 2 Est. Patient 15:34:57 NEUROLOGICAL SURGEON Alina Castaneda MD [facility] 2001-34053 Level 3 Est. Patient 12:17:04 NEUROLOGICAL SURGEON Alina Castaneda MD [facility] 2001-38331 Level 3 Est. Patient 09:18:18 NEUROLOGICAL SURGEON Marvel [facility]-40346 Level 2 Est. Patient 21:50:24 CDT Alina Castaneda MD [facility] 2001-09753 Level 3 Est. Patient 09:17:28 CDT Marvel [facility]-95887 Level 4 Est. Patient 18:54:02 CDT Alina Castaneda MD [facility] CPT-52005 Level 3 Est. Patient 10:47:10 CDT Alina Castaneda MD [facility] 2001-25191 Level 3 Est. Patient 09:22:20 [facility] CPT-45652 Level 3 Est. Patient 16:39:43 CDT [facility] CPT-74092 Level 3 Est. Patient 16:05:16 CDT Alina Castaneda MD [facility] 2001-16276 Level 3 Est. Patient 00:29:15 CDT Alina Castaneda MD [facility] 2001-68447 Level 3 Est. Patient 10:49:22 NEUROLOGICAL SURGEON [facility] CPT-27658 Level 3 Est. Patient 21:30:19 NEUROLOGICAL SURGEON Alina Castaneda MD [facility] CPT-80987 Level 4 Est. Patient 17:04:11 [facility] Level 3 Est. Patient 15:34:11 NEUROLOGICAL SURGEON Marvel [facility] CPT-06338 Level 2 Est. Patient 12:51:58 NEUROLOGICAL SURGEON Alina Castaneda MD PhD [facility] CPT-78582 Level 3 Est. Patient 13:20:01 NEUROLOGICAL SURGEON Alina Castaneda MD [facility] CPT-72471 Level 3 Est. Patient 09:23:35 CDT Alina Castaneda MD [facility] Procedures Code Procedure Name Date Entry Date Standard Description CPT-23875 Administration single or combination vaccine inc oral 11 :49:51 CDT CPT-39219 Pneumovax 11:49:51 CDT CPT-24138 Ribs unilateral 2V 12:37:22 NEUROLOGICAL SURGEON CPT-55425 Chest 2V Frontal and Lat 17:15:26 CDT CPT-25836 Abx/Therapy Injection 18:54:02 CDT CPT-J0696 Rocephin 1000 mg (Ceftriaxone) 16:00:32 CDT CPT-33782 Chest 2V Frontal and Lat 15:26:45 CDT CPT-00263 Chest 2V Frontal and Lat 10:23:27 CDT CPT-51288 Venipuncture Draw Fee 10:11:00 CDT CPT-41842 Administration single or combination vaccine inc oral 11 :56:38 CDT CPT-70231 Influenza split virus > age 3 11:56:38 CDT CPT-69276 Venipuncture Draw Fee 08:49:54 NEUROLOGICAL SURGEON CPT-09985 EKG Trac and Interp 17:54:19 NEUROLOGICAL SURGEON
--- OUTSIDE RECORDS SUMMARY | 2018-07-02 21:00 | XMS REPORT | Clinical Summary ---
Author Author Admin, TERELL Organization [facility] Address Unknown Phone Allergies, Adverse [...] Hypoglycemia 251.2 Active Marvel MARROQUIN Hypoglycemia, unspecified DIABETES, TYPE 2 ICD-250.00 Inactive Alina [...] FATIGUE ICD-780.79 Inactive Alina Castaneda MD PhD DIABETIC HYPOGLYCEMIA, [...] with lunch and suppetr. INSULIN LISPRO (HUMAN) 66235381880 Active Marvel Charles [employer] Active LEVEMIR 100 UNIT/ML SOLN Take 70 u at 7-8pm INSULIN DETEMIR 50760913285 Active Marvel Mackenzieglestela MENDOZAP Active BD INSULIN SYRINGE 28G X 1/2" 1 ML MISC 1 four times per day INSULIN SYRINGE-NEEDLE U-100 02152158672 Active Alina Castaneda MD PhD Active CYCLOBENZAPRINE HCL 10 MG TABS 1 tablet by mouth three times daily, scheduled CYCLOBENZAPRINE HCL 54324691917 Active Alina Castaneda MD PhD Active TOLTERODINE TARTRATE 2 MG TABS 1 pill twice daily, for bladder TOLTERODINE TARTRATE 65760405353 Active Alina Castaneda MD PhD Active DETROL LA 4 MG [id number] Take 1 tablet by mouth daily TOLTERODINE TARTRATE 53883280951 No Longer Active Alina Castaneda MD PhD Active HYDROCODONE-ACETAMINOPHEN 5-325 MG TABS 2 tabs by mouth three times daily as needed for pain HYDROCODONE-ACETAMINOPHEN 78419722590 Active Alina Castaneda MD PhD Active TERESE CONTOUR TEST STRP monitor blood sugars 3x/day GLUCOSE BLOOD 29211382667 No Longer Active Alina Castaneda MD PhD Active EQL TRUETEST TEST STRP Test blood sugar TID GLUCOSE BLOOD 52153661530 No Longer Active Alina Castaneda MD PhD Active FLUTICASONE PROPIONATE 50 MCG/ACT SUSP 2 sprays each nostril qDay x 30 days FLUTICASONE PROPIONATE 32919780641 No Longer Active Alina Castaneda MD PhD Active IBUPROFEN 200 MG TABS 1 Q 6 hr. PRN IBUPROFEN 93179602686 No Longer Active Alina Castaneda MD PhD Active NIACIN ER 500 MG CR-TABS 4 qHS (for triglycerides) NIACIN 48180365137 No Longer Active Alina Castaneda MD PhD Active TRUETEST TEST STRP check sugars 4x/day GLUCOSE BLOOD 01566648267 Active Alina Castaneda MD PhD Active ALFUZOSIN HCL ER 10 MG PG42D-GDL 1 tablet daily ALFUZOSIN HCL 38894790852 Active Vanessa Hickey MD Active CLONAZEPAM 1 MG TABS 1 pill by mouth three times daily CLONAZEPAM 38525270859 Active Alina Castaneda MD PhD Active LOVAZA 1 GM CAPS 4 daily (for triglycerides) [id number] ETHYL ESTERS 39376759496 Active Alina Castaneda MD PhD Active SAPHRIS 5 MG SUBL by mouth twice a day ASENAPINE MALEATE 83749986326 No Longer Active Marvel MARROQUIN Active ACETAMINOPHEN 500 MG TABS 2 Q 6 hr. PRN ACETAMINOPHEN 95394690589 No Longer Active Mallashondanivia Ziglari L[employer]ER Active VERAPAMIL HCL ER 120 MG [id number] 1 pill by mouth twice a day, for headache prevention/control VERAPAMIL HCL 23491444032 Active Alina Castaneda MD PhD Active ORPHENADRINE CITRATE ER 100 MG WL30M-JSN 1 every 12 hr. as needed ORPHENADRINE CITRATE 16337473132 No Longer Active Alina Castaneda MD PhD Active NIACIN CR 500 MG CR-TABS 2 qHS NIACIN 32564404189 No Longer Active Alina Castaneda MD PhD Active AMOXICILLIN 500 MG CAPS 2 po BID x 10 days AMOXICILLIN 27265091529 No Longer Active Alina Castaneda MD PhD Active ZYPREXA 7.5 MG TABS 1 at HS OLANZAPINE 70528888870 Active Alina Castaneda MD PhD Active THIOTHIXENE 5 MG CAPS by mouth twice a day THIOTHIXENE 39326746965 Active Alina Castaneda MD PhD Active HYDROCODONE-ACETAMINOPHEN 7.5-325 MG TABS 1 four times a day as needed for pain HYDROCODONE-ACETAMINOPHEN 24348488010 No Longer Active Alina Castaneda MD PhD Active METFORMIN HCL ER 500 MG PG63C-TRY Take three tablets by mouth everyday METFORMIN HCL 41177737796 Active Alina Castaneda MD PhD Active DOXEPIN HCL 10 MG CAPS Take 1 tablet by mouth daily DOXEPIN HCL 62244537921 No Longer Active Salina ROJAS Active NAVANE 10 MG CAPS 1/2 tablet twice a day THIOTHIXENE No Longer Active Salina ROBBINSA Active CYCLOBENZAPRINE HCL 10 MG TABS 1/2 tablet by mouth every 8 hours as needed for muscle spasms CYCLOBENZAPRINE HCL 69124436179 No Longer Active Alina Castaneda MD PhD Active BACTROBAN 2 % CREAM apply to ear and nose twice daily MUPIROCIN CALCIUM 31925741738 No Longer Active Alina Castaneda MD PhD Active HYDROCODONE-ACETAMINOPHEN 5-325 MG TABS take one tablet by mouth every four hours as needed for pain HYDROCODONE-ACETAMINOPHEN 78207654250 No Longer Active Alina Castaneda MD PhD Active ZOLPIDEM TARTRATE 10 MG TABS take at bedtime ZOLPIDEM TARTRATE 28803646441 Active Alina Castaneda MD PhD Active ZYPREXA 5 MG TABS take one tablet by mouth every evening OLANZAPINE 93068920108 No Longer Active Alina Castaneda MD PhD Active ALBUTEROL SULFATE 0.083 % NEBU SOLN one vial per nebulizer TID and PRN cough/ soa ALBUTEROL SULFATE 56912297370 No Longer Active Alina Castaneda MD PhD Active GUAIFENESIN 600 MG EX07B-QIV 1 tablet by mouth twice daily if needed for cough GUAIFENESIN 29401863234 No Longer Active Marvel MENDOZAP Active AZITHROMYCIN 500 MG SOLR 1 po q day AZITHROMYCIN 54678555677 No Longer Active Alina Castaneda MD PhD Active METOPROLOL SUCCINATE 100 MG RR21W-HSK 1 by mouth daily for blood pressure METOPROLOL SUCCINATE 72366879435 Active Alina Castaneda MD PhD Active PROMETHAZINE-CODEINE 6.25-10 MG/5ML SYRP 1 tsp po q 6 hours prn cough PROMETHAZINE-CODEINE 61556523369 No Longer Active Alina Castaneda MD PhD Active CEFDINIR 300 MG CAPS by mouth twice a day CEFDINIR 44105237661 No Longer Active Alina Castaneda MD PhD Active METFORMIN HCL 500 MG XQ44Z-QIS Take 3 tablets by mouth everyday METFORMIN HCL 82135513218 No Longer Active Alina Castaneda MD PhD Active LEVEMIR 100 UNIT/ML SOLN 90 units SQ qHS INSULIN DETEMIR 56602802279 No Longer Active Marvel MARROQUIN Active TOPROL XL 100 MG QB42B-AMA 1 @ HS METOPROLOL SUCCINATE 84767855016 No Longer Active Marvel MARROQUIN Active ALLOPURINOL 300 MG TABS Take one by mouth daily ALLOPURINOL 97806281077 Active Alina Castaneda MD PhD Active ZYPREXA 10 MG TABS Take one by mouth daily OLANZAPINE 49781646697 No Longer Active Alina Castaneda MD PhD Active NOVOLOG 100 UNIT/ML SOLN 40 units with every meal INSULIN ASPART 10609574767 No Longer Active Alina Castaneda MD PhD Active VERAPAMIL HCL CR 120 MG TAB CR 1 qPM VERAPAMIL HCL 57242198790 No Longer Active Salina Emely [facility] Active ZYPREXA 15 MG TABS Take 1 tablet by mouth daily OLANZAPINE 96693321976 No Longer Active Marvel MARROQUIN Active LISINOPRIL 20 MG TABS 1 BID LISINOPRIL 70776089396 Active Mao Rodriguez MD Active ALBUTEROL SULFATE (2.5 MG/3ML) 0.083% NEBU 1 neb tid and prn cough ALBUTEROL SULFATE 63545239948 No Longer Active Alina Castaneda MD PhD Active FLUVOXAMINE MALEATE 100 MG TABS Take one (1) tablet by mouth am, 1/2 at noon, 1 pm FLUVOXAMINE MALEATE 42396907925 Active Alina Castaneda MD PhD Active TRAVATAN Z 0.004 % SOLN 1 gtt each eye daily TRAVOPROST 50191878159 Active Alina Mendez Active LANTUS 100 UNIT/ML SOLN 60 units sq q hs INSULIN GLARGINE 16196997555 No Longer Active Alina Mendez Active UROXATRAL 10 MG CE26X-ZOU Take 1 tablet by mouth daily ALFUZOSIN HCL 74033367889 Active Tanya MARROQUIN Active ALBUTEROL SULFATE (2.5 MG/3ML) 0.083% NEBU 1 neb tid and prn cough ALBUTEROL SULFATE (2.5 MG/3ML) 0.083% NEBU 998953 ALBUTEROL SULFATE Inactive ZYPREXA 15 MG TABS Take 1 tablet by mouth daily ZYPREXA 15 MG TABS 774933 OLANZAPINE Inactive VERAPAMIL HCL CR 120 MG TAB CR 1 qPM VERAPAMIL HCL CR 120 MG TAB CR VERAPAMIL HCL Inactive ZYPREXA 10 MG TABS Take one by mouth daily ZYPREXA 10 MG TABS 243657 OLANZAPINE Inactive TOPROL XL 100 MG [id number]-CJV 1 @ HS TOPROL XL 100 MG [id number]-QRT METOPROLOL SUCCINATE Inactive LEVEMIR 100 UNIT/ML SOLN 90 units SQ qHS LEVEMIR 100 UNIT/ML SOLN INSULIN DETEMIR Inactive PROMETHAZINE-CODEINE 6.25-10 MG/5ML SYRP 1 tsp po q 6 hours prn cough PROMETHAZINE-CODEINE 6.25-10 MG/5ML SYRP 929029 PROMETHAZINE- CODEINE Inactive GUAIFENESIN 600 MG CP34A-TEB 1 tablet by mouth twice daily if needed for cough GUAIFENESIN 600 MG PG78I-QUG GUAIFENESIN Inactive ALBUTEROL SULFATE 0.083 % NEBU SOLN one vial per nebulizer TID and PRN cough/ soa ALBUTEROL SULFATE 0.083 % NEBU SOLN 801803 ALBUTEROL SULFATE Inactive ZYPREXA 5 MG TABS take one tablet by mouth every evening ZYPREXA 5 MG TABS 775729 OLANZAPINE Inactive HYDROCODONE-ACETAMINOPHEN 5-325 MG TABS take one tablet by mouth every four hours as needed for pain HYDROCODONE-ACETAMINOPHEN 5-325 MG TABS 704630 HYDROCODONE-ACETAMINOPHEN Inactive BACTROBAN 2 % CREAM apply to ear and nose twice daily BACTROBAN 2 % CREAM 194646 MUPIROCIN CALCIUM Inactive CYCLOBENZAPRINE HCL 10 MG TABS 1/2 tablet by mouth every 8 hours as needed for muscle spasms CYCLOBENZAPRINE HCL 10 MG TABS 350269 CYCLOBENZAPRINE HCL Inactive NAVANE 10 MG CAPS 1/2 tablet twice a day NAVANE 10 MG CAPS THIOTHIXENE Inactive DOXEPIN HCL 10 MG CAPS Take 1 tablet by mouth daily DOXEPIN HCL 10 MG CAPS 7375525 DOXEPIN HCL Inactive HYDROCODONE-ACETAMINOPHEN 7.5-325 MG TABS 1 four times a day as needed for pain HYDROCODONE-ACETAMINOPHEN 7.5-325 MG TABS 558481 HYDROCODONE-ACETAMINOPHEN Inactive NIACIN CR 500 MG CR-TABS 2 qHS NIACIN CR 500 MG CR- TABS NIACIN Inactive ORPHENADRINE CITRATE ER 100 MG LI62O-RQU 1 every 12 hr. as needed ORPHENADRINE CITRATE ER 100 MG YZ69W-IQN ORPHENADRINE CITRATE Inactive ACETAMINOPHEN 500 MG TABS 2 Q 6 hr. PRN ACETAMINOPHEN 500 MG TABS 352031 ACETAMINOPHEN Inactive SAPHRIS 5 MG SUBL by mouth twice a day SAPHRIS 5 MG SUBL ASENAPINE MALEATE Inactive NIACIN ER 500 MG CR-TABS 4 qHS (for triglycerides) NIACIN ER 500 MG CR-TABS NIACIN Inactive IBUPROFEN 200 MG TABS 1 Q 6 hr. PRN IBUPROFEN 200 MG TABS 193545 IBUPROFEN Inactive FLUTICASONE PROPIONATE 50 MCG/ACT SUSP 2 sprays each nostril qDay x 30 days FLUTICASONE PROPIONATE 50 MCG/ACT SUSP 649554 FLUTICASONE PROPIONATE Inactive EQL TRUETEST TEST STRP Test blood sugar TID EQL TRUETEST TEST STRP GLUCOSE BLOOD Inactive TERESE CONTOUR TEST STRP monitor blood sugars 3x/day TERESE CONTOUR TEST STRP GLUCOSE BLOOD Inactive DETROL LA 4 MG WD47F-KUM Take 1 tablet by mouth daily DETROL LA 4 MG WV61R-TWR TOLTERODINE TARTRATE Inactive CEFDINIR 300 MG CAPS by mouth twice a day CEFDINIR 300 MG CAPS 510432 CEFDINIR Inactive AZITHROMYCIN 500 MG SOLR 1 po q day AZITHROMYCIN 500 MG SOLR 473513 AZITHROMYCIN Inactive AMOXICILLIN 500 MG CAPS 2 po BID x 10 days AMOXICILLIN 500 MG CAPS 667375 AMOXICILLIN Inactive Immunizations Vaccine Administration Date Value [...] Fluvirin, Fluarix, Agriflu(>=18 yo)) Fluzone (>3 yrs.) [[id number]] Influenza, seasonal, injectable pneumococcal immunization administered Pneumovax [...] HGBA1C - Chemistry sodium, serum 130 mmol/L 505-519 1108/06/09 potassium, serum 4.0 mmol/L 3.5-5.2 chloride, serum [...] acid - Chemistry sodium, serum 130 mmol/L 823-494 3454/05/01 potassium, serum 5.2 mmol/L 3.5-5.2 chloride, serum [...] 0.40 mg/dL 0.00-1.00 cholesterol, serum 151 mg/dL 078-146 4068/05/01 triglyceride, serum, fasting 356 mg/dL 30-200 HDL [...] HGBA1C - Chemistry sodium, serum 126 mmol/L 338-364 2069/02/26 potassium, serum 4.8 mmol/L 3.5-5.2 chloride, serum [...] DIRECT - Chemistry cholesterol, serum 158 mg/dL 552-483 6168/07/11 triglyceride, serum, fasting 489 mg/dL 30-200 HDL [...] mg/dL Encounters Code Encounter Date Provider Facility CPT-18808 Level 3 Est. Patient 13:19:10 CDT [facility] [place] CPT-47208 Level 3 Est. Patient 08:20:05 CDT Alina Castaneda MD [facility] CPT-50341 Level 3 Est. Patient 15:17:18 CDT Alina Castaneda MD PhD [facility] CPT-51009 Level 3 Est. Patient 14:25:36 RULING MACHINE OPERATOR [facility] [place] CPT-95779 Level 3 Est. Patient 10:09:15 RULING MACHINE OPERATOR [facility] [place] CPT-87959 Level 3 Est. Patient 21:28:43 CDT Alina Castaneda MD PhD [facility] CPT-90578 Level 3 Est. Patient 15:20:11 CDT Marvel Charles [facility] CPT-11134 Level 4 Est. Patient 19:08:12 CDT Alina Castaneda MD [facility] [place]-68364 Level 3 Est. Patient 15:06:39 [facility]01829 Level 4 Est. Patient 17:48:15 CDT Alina Castaneda MD [facility] [place]-91289 Level 3 Est. Patient 14:53:49 CDT Alina Castaneda MD [facility] [place]-17888 Level 3 Est. Patient 09:35:16 CDT Alina Castaneda MD [facility] [place]-54272 Level 3 Est. Patient 12:23:22 CDT Alina Castaneda MD [facility] [place]-01960 Level 3 Est. Patient 16:19:15 CDT Alina Castaneda MD [facility] [place]-98305 Level 3 Est. Patient 21:39:56 RULING MACHINE OPERATOR Alina Castaneda MD [facility] [place]-35763 Level 4 Est. Patient 14:12:56 RULING MACHINE OPERATOR Alina Castaneda MD [facility] [place]-62472 Level 2 Est. Patient 15:34:57 RULING MACHINE OPERATOR Alina Castaneda MD [facility] [place]-81325 Level 3 Est. Patient 12:17:04 RULING MACHINE OPERATOR Alina Castaneda MD [facility] [place]-92485 Level 3 Est. Patient 09:18:18 RULING MACHINE OPERATOR Marvel Charles [facility]-52522 Level 2 Est. Patient 21:50:24 CDT Alina Castaneda MD [facility] [place]-24505 Level 3 Est. Patient 09:17:28 CDT Marvel Araceli [facility] CPT-16966 Level 4 Est. Patient 18:54:02 CDT Alina Castaneda MD [facility] CPT-31430 Level 3 Est. Patient 10:47:10 CDT Alina Castaneda MD [facility] CPT-03303 Level 3 Est. Patient 09:22:20 CDT Marvel Thurstonestela [facility] CPT-99731 Level 3 Est. Patient 16:39:43 CDT Marvel Thurstonestela [facility] CPT-45811 Level 3 Est. Patient 16:05:16 CDT Alina Castaneda MD [facility] CPT-91072 Level 3 Est. Patient 00:29:15 CDT Alina Castaneda MD [facility] CPT-13091 Level 3 Est. Patient 10:49:22 RULING MACHINE OPERATOR Brookslashondanivia Araceli [facility] CPT-35449 Level 3 Est. Patient 21:30:19 RULING MACHINE OPERATOR Alina Castaneda MD [facility] CPT-13947 Level 4 Est. Patient 17:04:11 RULING MACHINE OPERATOR Marvel Araceli [facility] CPT-64945 Level 3 Est. Patient 15:34:11 RULING MACHINE OPERATOR Brooksjohn Charles [facility] CPT-70716 Level 2 Est. Patient 12:51:58 RULING MACHINE OPERATOR Alina Castaneda MD [facility] CPT-73786 Level 3 Est. Patient 13:20:01 RULING MACHINE OPERATOR Alina Castaneda MD [facility] CPT-67198 Level 3 Est. Patient 09:23:35 CDT Alina Castaneda MD [facility] Procedures Code Procedure Name Date Entry Date Standard Description CPT-75095 Administration single or combination vaccine inc oral 11 :49:51 CDT CPT-89099 Pneumovax 11:49:51 CDT CPT-17410 Ribs unilateral 2V 12:37:22 RULING MACHINE OPERATOR CPT-81702 Chest 2V Frontal and Lat 17:15:26 CDT CPT-52098 Abx/Therapy Injection 18:54:02 CDT CPT-J0696 Rocephin 1000 mg (Ceftriaxone) 16:00:32 CDT CPT-22809 Chest 2V Frontal and Lat 15:26:45 CDT CPT-50501 Chest 2V Frontal and Lat 10:23:27 CDT CPT-31896 Venipuncture Draw Fee 10:11:00 CDT CPT-12215 Administration single or combination vaccine inc oral 11 :56:38 CDT CPT-48143 Influenza split virus > age 3 11:56:38 CDT CPT-54767 Venipuncture Draw Fee 08:49:54 RULING MACHINE OPERATOR CPT-31425 EKG Trac and Interp 17:54:19 RULING MACHINE OPERATOR
--- OUTSIDE RECORDS SUMMARY | 2018-07-02 21:01 | XMS REPORT | Clinical Summary ---
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 Inactive Alina Castaneda MD PhD SPECIAL SCREENING FOR MALIGNANT NEOPLASM OF PROSTATE ICD-V76.44 Inactive Alina Castaneda MD PhD Medication List Medication Instructions Start Date Stop Date Generic Name NDC Status Provider Patient Instruction MORPHINE SULFATE 30 MG TABS 1 pill by mouth nightly, for pain MORPHINE SULFATE 04645069062 Active Alina Castaneda MD PhD Active LATUDA 80 MG TABS 1 tab by mouth every evening LURASIDONE HCL 47093442149 Active Alina Castaneda MD PhD Active UROXATRAL 10 MG [id number]-[id number] Take 1 tablet by mouth daily ALFUZOSIN HCL 76666678025 No Longer Active Alina Castaneda MD PhD Active THIOTHIXENE 5 MG CAPS by mouth twice a day THIOTHIXENE 58528046224 No Longer Active Alina Castaneda MD PhD Active ZYPREXA 7.5 MG TABS 1 at HS OLANZAPINE 82856654465 No Longer Active Alina Castaneda MD PhD Active HUMALOG 100 UNIT/ML SOLN Take 20 units with breakfast, 10u with lunch and suppetr. 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 Active LEVEMIR 100 UNIT/ML SOLN Take 70 u at 7-8pm INSULIN DETEMIR 97542993539 Active Maliheh Ziglari [employer]ET [employer]ING SUPERVISOR Active BD INSULIN SYRINGE 28G X 1/2" 1 ML MISC 1 four times per day INSULIN SYRINGE-NEEDLE U-100 52486245023 Active Maliheh Ziglari [employer]ET [employer]ING SUPERVISOR Active CYCLOBENZAPRINE HCL 10 MG TABS 1 tablet by mouth three times daily, scheduled CYCLOBENZAPRINE HCL 66937164706 Active Alina Castaneda MD PhD Active TOLTERODINE TARTRATE 2 MG TABS 1 pill twice daily, for bladder TOLTERODINE TARTRATE 53862287882 Active Alina Castaneda MD PhD Active DETROL LA 4 MG [id number]-FHZ Take 1 tablet by mouth daily TOLTERODINE TARTRATE 46355515013 No Longer Active Alina Castaneda MD PhD Active HYDROCODONE-ACETAMINOPHEN 5-325 MG TABS 2 tabs by mouth three times daily as needed for pain HYDROCODONE-ACETAMINOPHEN 23890350903 Active Alina Castaneda MD PhD Active TERESE CONTOUR TEST STRP monitor blood sugars 3x/day GLUCOSE BLOOD 24248386026 No Longer Active Alina Castaneda MD PhD Active EQL TRUETEST TEST STRP Test blood sugar TID GLUCOSE BLOOD 54572458723 No Longer Active Alina Castaneda MD PhD Active FLUTICASONE PROPIONATE 50 MCG/ACT SUSP 2 sprays each nostril qDay x 30 days FLUTICASONE PROPIONATE 95805213417 No Longer Active Alina Castaneda MD PhD Active IBUPROFEN 200 MG TABS 1 Q 6 hr. PRN IBUPROFEN 38476738273 No Longer Active Alina Castaneda MD PhD Active NIACIN ER 500 MG CR-TABS 4 qHS (for triglycerides) NIACIN 76780275438 No Longer Active Alina Castaneda MD PhD Active TRUETEST TEST STRP check sugars 4x/day GLUCOSE BLOOD 40470502721 Active Alina Castaneda MD PhD Active ALFUZOSIN HCL ER 10 MG [id number] 1 tablet daily ALFUZOSIN HCL 77476328329 Active Vanessa Hickey MD Active CLONAZEPAM 1 MG TABS 1 pill by mouth three times daily CLONAZEPAM 25157538044 Active Alina Castaneda MD PhD Active LOVAZA 1 GM CAPS 4 daily (for triglycerides) BGPLZ-0-SPYI ETHYL ESTERS 59477282653 Active Alina Castaneda MD PhD Active SAPHRIS 5 MG SUBL by mouth twice a day ASENAPINE MALEATE 68838171072 No Longer Active Maljohn Mackenzieglari SHEET [employer]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 PRN ACETAMINOPHEN 35019564071 No Longer Active Maliheh Ziglari SHEET MANU[employer]URING SUPERVISOR Active VERAPAMIL HCL ER 120 MG LO89T-CAR 1 pill by mouth twice a day, for headache prevention/control VERAPAMIL HCL 28834067548 Active Alina Castaneda MD PhD Active ORPHENADRINE CITRATE ER 100 MG GD73P-LID 1 every 12 hr. as needed ORPHENADRINE CITRATE 10101143003 No Longer Active Alina Castaneda MD PhD Active NIACIN CR 500 MG CR-TABS 2 qHS NIACIN 16039014421 No Longer Active Alina Castaneda MD PhD Active AMOXICILLIN 500 MG CAPS 2 po BID x 10 days AMOXICILLIN 89137842264 No Longer Active Alina Castaneda MD PhD Active HYDROCODONE-ACETAMINOPHEN 7.5-325 MG TABS 1 four times a day as needed for pain HYDROCODONE-ACETAMINOPHEN 09512748228 No Longer Active Alina Castaneda MD PhD Active METFORMIN HCL ER 500 MG DE48S-FAR Take three tablets by mouth everyday METFORMIN HCL 09347229279 Active Alina Castaneda MD PhD Active DOXEPIN HCL 10 MG CAPS Take 1 tablet by mouth daily DOXEPIN HCL 51541726718 No Longer Active Salina Han A Active NAVANE 10 MG CAPS 1/2 tablet twice a day THIOTHIXENE No Longer Active Salina Han [facility] Active CYCLOBENZAPRINE HCL 10 MG TABS 1/2 tablet by mouth every 8 hours as needed for muscle spasms CYCLOBENZAPRINE HCL 76599747188 No Longer Active Alina Castaneda MD PhD Active BACTROBAN 2 % CREAM apply to ear and nose twice daily MUPIROCIN CALCIUM 59624120290 No Longer Active Alina Castaneda MD PhD Active HYDROCODONE-ACETAMINOPHEN 5-325 MG TABS take one tablet by mouth every four hours as needed for pain HYDROCODONE-ACETAMINOPHEN 27965352888 No Longer Active Alina Castaneda MD PhD Active ZOLPIDEM TARTRATE 10 MG TABS take at bedtime ZOLPIDEM TARTRATE 23569015309 Active Alina Castaneda MD PhD Active ZYPREXA 5 MG TABS take one tablet by mouth every evening OLANZAPINE 37789730271 No Longer Active Alina Castaneda MD PhD Active ALBUTEROL SULFATE 0.083 % NEBU SOLN one vial per nebulizer TID and PRN cough/ soa ALBUTEROL SULFATE 26134332891 No Longer Active Alina Castaneda MD PhD Active GUAIFENESIN 600 MG [id number]-CUY 1 tablet by mouth twice daily if needed for cough GUAIFENESIN 23579513037 No Longer Active Marvel MARROQUIN Active AZITHROMYCIN 500 MG SOLR 1 po q day AZITHROMYCIN 24092613090 No Longer Active Alina Castaneda MD PhD Active METOPROLOL SUCCINATE 100 MG YM03G-IMP 1 by mouth daily for blood pressure METOPROLOL SUCCINATE 35658210039 Active Alina Castaneda MD PhD Active PROMETHAZINE-CODEINE 6.25-10 MG/5ML SYRP 1 tsp po q 6 hours prn cough PROMETHAZINE-CODEINE 51541920152 No Longer Active Alina Castaneda MD PhD Active CEFDINIR 300 MG CAPS by mouth twice a day CEFDINIR 43703074179 No Longer Active Alina Castaneda MD PhD Active METFORMIN HCL 500 MG HC71R-GQZ Take 3 tablets by mouth everyday METFORMIN HCL 81421437537 No Longer Active Alina Castaneda MD PhD Active LEVEMIR 100 UNIT/ML SOLN 90 units SQ qHS INSULIN DETEMIR 47751761032 No Longer Active Marvel MARROQUIN Active TOPROL XL 100 MG [id number]-FHV 1 @ HS METOPROLOL SUCCINATE 37656748742 No Longer Active Marvel MARROQUIN Active ALLOPURINOL 300 MG TABS Take one by mouth daily ALLOPURINOL 11979591645 Active Alina Castaneda MD PhD Active ZYPREXA 10 MG TABS Take one by mouth daily OLANZAPINE 90670762360 No Longer Active Alina Castaneda MD PhD Active NOVOLOG 100 UNIT/ML SOLN 40 units with every meal INSULIN ASPART 85938047924 No Longer Active Alina Castaneda MD PhD Active VERAPAMIL HCL CR 120 MG TAB CR 1 qPM VERAPAMIL HCL 27365895161 No Longer Active Salina Han [facility] Active ZYPREXA 15 MG TABS Take 1 tablet by mouth daily OLANZAPINE 95578785818 No Longer Active Marvel MARROQUIN Active LISINOPRIL 20 MG TABS 1 BID LISINOPRIL 61780457273 Active Alina Castaneda MD PhD Active ALBUTEROL SULFATE (2.5 MG/3ML) 0.083% NEBU 1 neb tid and prn cough ALBUTEROL SULFATE 73942774138 No Longer Active Alina Castaneda MD PhD Active FLUVOXAMINE MALEATE 100 MG TABS Take one (1) tablet by mouth am, 05/25 at noon, 1 pm FLUVOXAMINE MALEATE 62624481388 Active Alina Castaneda MD PhD Active TRAVATAN Z 0.004 % SOLN 1 gtt each eye daily TRAVOPROST 98240436533 Active CRYSTAL Suarez Active LANTUS 100 UNIT/ML SOLN 60 units sq q hs INSULIN GLARGINE 29140199998 No Longer Active CRYSTAL Suarez Active ALBUTEROL SULFATE (2.5 MG/3ML) 0.083% NEBU 1 neb tid and prn cough ALBUTEROL SULFATE (2.5 MG/3ML) 0.083% NEBU 417586 ALBUTEROL SULFATE Inactive ZYPREXA 15 MG TABS Take 1 tablet by mouth daily ZYPREXA 15 MG TABS 190234 OLANZAPINE Inactive VERAPAMIL HCL CR 120 MG TAB CR 1 qPM VERAPAMIL HCL CR 120 MG TAB CR VERAPAMIL HCL Inactive ZYPREXA 10 MG TABS Take one by mouth daily ZYPREXA 10 MG TABS 764028 OLANZAPINE Inactive TOPROL XL 100 MG [id number]-HQP 1 @ HS TOPROL XL 100 MG [id number]-UML METOPROLOL SUCCINATE Inactive LEVEMIR 100 UNIT/ML SOLN 90 units SQ qHS LEVEMIR 100 UNIT/ML SOLN INSULIN DETEMIR Inactive PROMETHAZINE-CODEINE 6.25-10 MG/5ML SYRP 1 tsp po q 6 hours prn cough PROMETHAZINE-CODEINE 6.25-10 MG/5ML SYRP 601525 PROMETHAZINE- CODEINE Inactive GUAIFENESIN 600 MG ML62T-TLK 1 tablet by mouth twice daily if needed for cough GUAIFENESIN 600 MG CW54Q-GUG GUAIFENESIN Inactive ALBUTEROL SULFATE 0.083 % NEBU SOLN one vial per nebulizer TID and PRN cough/ soa ALBUTEROL SULFATE 0.083 % [facility] 022759 ALBUTEROL SULFATE Inactive ZYPREXA 5 MG TABS take one tablet by mouth every evening ZYPREXA 5 MG TABS 811870 OLANZAPINE Inactive HYDROCODONE-ACETAMINOPHEN 5-325 MG TABS take one tablet by mouth every four hours as needed for pain HYDROCODONE-ACETAMINOPHEN 5-325 MG TABS 811246 HYDROCODONE-ACETAMINOPHEN Inactive BACTROBAN 2 % CREAM apply to ear and nose twice daily BACTROBAN 2 % CREAM 208587 MUPIROCIN CALCIUM Inactive CYCLOBENZAPRINE HCL 10 MG TABS 1/2 tablet by mouth every 8 hours as needed for muscle spasms CYCLOBENZAPRINE HCL 10 MG TABS 958689 CYCLOBENZAPRINE HCL Inactive NAVANE 10 MG CAPS 1/2 tablet twice a day NAVANE 10 MG CAPS THIOTHIXENE Inactive DOXEPIN HCL 10 MG CAPS Take 1 tablet by mouth daily DOXEPIN HCL 10 MG CAPS 2210717 DOXEPIN HCL Inactive HYDROCODONE-ACETAMINOPHEN 7.5-325 MG TABS 1 four times a day as needed for pain HYDROCODONE-ACETAMINOPHEN 7.5-325 MG TABS 152922 HYDROCODONE-ACETAMINOPHEN Inactive NIACIN CR 500 MG CR-TABS 2 qHS NIACIN CR 500 MG CR- TABS NIACIN Inactive ORPHENADRINE CITRATE ER 100 MG [id number]-JYP 1 every 12 hr. as needed ORPHENADRINE CITRATE ER 100 MG OR13U-ULX ORPHENADRINE CITRATE Inactive ACETAMINOPHEN 500 MG TABS 2 Q 6 hr. PRN ACETAMINOPHEN 500 MG TABS 402130 ACETAMINOPHEN Inactive SAPHRIS 5 MG SUBL by mouth twice a day SAPHRIS 5 MG SUBL ASENAPINE MALEATE Inactive NIACIN ER 500 MG CR-TABS 4 qHS (for triglycerides) NIACIN ER 500 MG CR-TABS NIACIN Inactive IBUPROFEN 200 MG TABS 1 Q 6 hr. PRN IBUPROFEN 200 MG TABS 926306 IBUPROFEN Inactive FLUTICASONE PROPIONATE 50 MCG/ACT SUSP 2 sprays each nostril qDay x 30 days FLUTICASONE PROPIONATE 50 MCG/ACT SUSP 615748 FLUTICASONE PROPIONATE Inactive EQL TRUETEST TEST STRP Test blood sugar TID EQL TRUETEST TEST STRP GLUCOSE BLOOD Inactive TERESE CONTOUR TEST STRP monitor blood sugars 3x/day TERESE CONTOUR TEST STRP GLUCOSE BLOOD Inactive DETROL LA 4 MG [id number] Take 1 tablet by mouth daily DETROL LA 4 MG [id number]-PGV TOLTERODINE TARTRATE Inactive ZYPREXA 7.5 MG TABS 1 at HS ZYPREXA 7.5 MG TABS 310542 OLANZAPINE Inactive THIOTHIXENE 5 MG CAPS by mouth twice a day THIOTHIXENE 5 MG CAPS 517931 THIOTHIXENE Inactive UROXATRAL 10 MG VJ54N-END Take 1 tablet by mouth daily UROXATRAL 10 MG XL86K-TUU ALFUZOSIN HCL Inactive CEFDINIR 300 MG CAPS by mouth twice a day CEFDINIR 300 MG CAPS 861864 CEFDINIR Inactive AZITHROMYCIN 500 MG SOLR 1 po q day AZITHROMYCIN 500 MG SOLR 594401 AZITHROMYCIN Inactive AMOXICILLIN 500 MG CAPS 2 po BID x 10 days AMOXICILLIN 500 MG CAPS 116057 AMOXICILLIN Inactive Immunizations Vaccine Administration Date Value [...] Fluvirin, Fluarix, Agriflu(>=18 yo)) Fluzone (>3 yrs.) [[id number]] Influenza, seasonal, injectable pneumococcal immunization administered Pneumovax [...] HGBA1C - Chemistry sodium, serum 130 mmol/L 183-755 4214/06/09 potassium, serum 4.0 mmol/L 3.5-5.2 chloride, serum [...] 6.0 mg/dL 2.6-7.2 sodium, serum 130 mmol/L 216-167 2826/05/01 potassium, serum 5.2 mmol/L 3.5-5.2 chloride, serum [...] 0.40 mg/dL 0.00-1.00 cholesterol, serum 151 mg/dL 276-330 5994/05/01 triglyceride, serum, fasting 356 mg/dL 30-200 HDL [...] HGBA1C - Chemistry sodium, serum 126 mmol/L 123-617 6749/02/26 potassium, serum 4.8 mmol/L 3.5-5.2 chloride, serum [...] mg/dL Encounters Code Encounter Date Provider Facility CPT-09675 Level 3 Est. [facility] Level 3 Est. Patient 12:02:49 CDT Alina Castaneda MD [facility]-52446 Level 3 Est. Patient 19:17:33 CDT Alina Castaneda MD PhD [facility] CPT-76091 Level 3 Est. Patient 13:19:10 CDT Marvel Charles [facility] [place] CPT-45524 Level 3 Est. Patient 08:20:05 CDT Alina Castaneda MD PhD [facility]-28804 Level 3 Est. Patient 15:17:18 CDT Alina Castaneda MD PhD [facility]58878 Level 3 Est. Patient 14:25:36 SECTION LEADER [employer]EN PRINTING [facility] Araceli [facility] [place] CPT-04139 Level 3 Est. Patient 10:09:15 SECTION LEADER SCREEN PRINTING Marvel Charles [facility]-10373 Level 3 Est. Patient 21:28:43 CDT Alina Castaneda MD [facility]-30988 Level 3 Est. Patient 15:20:11 [facility] Est[facility] Patient 19:08:12 CDT Alina Castaneda MD [facility]-42612 Level 3 Est. Patient 15:06:39 CDT Marvel [facility]-42105 Level 4 Est. Patient 17:48:15 CDT Alina Castaneda MD [facility]-02492 Level 3 Est. Patient 14:53:49 CDT Alina Castaneda MD [facility]-39507 Level 3 Est. Patient 09:35:16 CDT Alina Castaneda MD [facility]-30736 Level 3 Est. Patient 12:23:22 CDT Alina Castaneda MD [facility]-06687 Level 3 Est. Patient 16:19:15 CDT Alina Castaneda MD [facility]-43250 Level 3 Est. Patient 21:39:56 SECTION LEADER SCREEN PRINTING Alina Castaneda MD [facility]-07487 Level 4 Est. Patient 14:12:56 SECTION LEADER SCREEN PRINTING Alina Castaneda MD [facility]-32302 Level 2 Est. Patient 15:34:57 SECTION LEADER SCREEN PRINTING Alina Castaneda MD [facility]-98016 Level 3 Est. Patient 12:17:04 SECTION LEADER SCREEN PRINTING Alina Castaneda MD [facility]-81472 Level 3 Est. Patient 09:18:18 SECTION LEADER SCREEN PRINTING [facility]-49174 Level 2 Est. Patient 21:50:24 CDT Alina Castaneda MD [facility]-21046 Level 3 Est. Patient 09:17:28 CDT Marvel Charles [facility]-98431 Level 4 Est. Patient 18:54:02 CDT Alina Castaneda MD [facility]-56894 Level 3 Est. Patient 10:47:10 CDT Alina Castaneda MD [facility]94597 Level 3 Est. Patient 09:22:20 CDT Marvel Charles [facility]-13623 Level 3 Est. Patient 16:39:43 [facility]-41747 Level 3 Est. Patient 16:05:16 CDT Alina Castaneda MD PhD [facility]-87724 Level 3 Est. Patient 00:29:15 CDT Alina Castaneda MD [facility]-92466 Level 3 Est. Patient 10:49:22 SECTION LEADER SCREEN PRINTING Marvel Charles [facility]-11112 Level 3 Est. Patient 21:30:19 SECTION LEADER SCREEN PRINTING Alina Castaneda MD [facility]-04924 Level 4 Est. Patient 17:04:11 SECTION LEADER SCREEN PRINTING Marvel Charles [facility]-04655 Level 3 Est. Patient 15:34:11 SECTION LEADER SCREEN PRINTING Marvel Charles [facility]-32624 Level 2 Est. Patient 12:51:58 SECTION LEADER SCREEN PRINTING Alina Castaneda MD [facility]55028 Level 3 Est. Patient 13:20:01 SECTION LEADER SCREEN PRINTING Alina Castaneda MD PhD [facility] CPT-92090 Level 3 Est. Patient 09:23:35 CDT Alina Castaneda MD PhD [facility] Procedures Code Procedure Name Date Entry Date Standard Description CPT-64035 Administration single or combination vaccine inc oral 11 :49:51 CDT CPT-15160 Pneumovax 11:49:51 CDT CPT-53161 Ribs unilateral 2V 12:37:22 SECTION LEAD[employer]ING CPT-62467 Chest 2V Frontal and Lat 17:15:26 CDT CPT-20870 Abx/Therapy Injection 18:54:02 CDT CPT-J0696 Rocephin 1000 mg (Ceftriaxone) 16:00:32 CDT CPT-34224 Chest 2V Frontal and Lat 15:26:45 CDT CPT-53684 Chest 2V Frontal and Lat 10:23:27 CDT CPT-02241 Venipuncture Draw Fee 10:11:00 CDT CPT-77908 Administration single or combination vaccine inc oral 11 :56:38 CDT CPT-77447 Influenza split virus > age 3 11:56:38 CDT CPT-01349 Venipuncture Draw Fee 08:49:54 SECTION [employer]ING CPT-94151 EKG Trac and Interp 17:54:19 SECTION LEADER [employer]CRE[employer]ING
--- OUTSIDE RECORDS SUMMARY | 2018-07-02 21:02 | XMS REPORT | Clinical Summary ---
Author Author Admin, TERELL Organization [facility] Address Unknown Phone Allergies, Adverse Reactions, [...] mouth three times daily, scheduled CYCLOBENZAPRINE HCL 04018183460 Active Alina Castaneda MD PhD Active HUMALOG 100 UNIT/ML SOLN take 40u with each meal INSULIN LISPRO (HUMAN) 20480985448 Active Alina Castaneda MD PhD Active TOLTERODINE TARTRATE 2 MG TABS 1 pill twice daily, for bladder TOLTERODINE TARTRATE 01543955437 Active Alina Castaneda MD PhD Active DETROL LA 4 MG [id number]-LCK Take 1 tablet by mouth daily TOLTERODINE TARTRATE 53307522417 No Longer Active Alina Castaneda MD PhD Active HYDROCODONE-ACETAMINOPHEN 5-325 MG TABS 2 tabs by mouth three times daily as needed for pain HYDROCODONE-ACETAMINOPHEN 65605228182 Active Alina Castaneda MD PhD Active TERESE CONTOUR TEST STRP monitor blood sugars 3x/day GLUCOSE BLOOD 42881988169 No Longer Active Alina Castaneda MD PhD Active EQL TRUETEST TEST STRP Test blood sugar TID GLUCOSE BLOOD 45203506119 No Longer Active Alina Castaneda MD PhD Active FLUTICASONE PROPIONATE 50 MCG/ACT SUSP 2 sprays each nostril qDay x 30 days FLUTICASONE PROPIONATE 22792080407 No Longer Active Alina Castaneda MD PhD Active IBUPROFEN 200 MG TABS 1 Q 6 hr. PRN IBUPROFEN 69818386734 No Longer Active Alina Castaneda MD PhD Active NIACIN ER 500 MG CR-TABS 4 qHS (for triglycerides) NIACIN 62422550536 No Longer Active Alina Castaneda MD PhD Active LEVEMIR 100 UNIT/ML SOLN Take 100u at 7-8pm INSULIN DETEMIR 37582580281 Active Alina Castaneda MD PhD Active TRUETEST TEST STRP check sugars 4x/day GLUCOSE BLOOD 15497259850 Active Alina Castaneda MD PhD Active ALFUZOSIN HCL ER 10 MG [id number]-BSA 1 tablet daily ALFUZOSIN HCL 38327722338 Active Vanessa Hickey MD Active CLONAZEPAM 1 MG TABS 1 pill by mouth three times daily CLONAZEPAM 02461802780 Active Alina Castaneda MD PhD Active LOVAZA 1 GM CAPS 4 daily (for triglycerides) [id number] ETHYL ESTERS 99750990047 Active Alina Castaneda MD PhD Active SAPHRIS 5 MG SUBL by mouth twice a day ASENAPINE MALEATE 81085315277 No Longer Active Maljohn Ziglari [employer] Active ACETAMINOPHEN 500 MG TABS 2 Q 6 hr. PRN ACETAMINOPHEN 80649388139 No Longer Active Maljohn Mackenzieglari [employer] Active VERAPAMIL HCL ER 120 MG [id number] 1 pill by mouth twice a day, for headache prevention/control VERAPAMIL HCL 16848618171 Active Alina Castaneda MD PhD Active ORPHENADRINE CITRATE ER 100 MG FA08P-PMH 1 every 12 hr. as needed ORPHENADRINE CITRATE 08903538203 No Longer Active Alina Castaneda MD PhD Active NIACIN CR 500 MG CR-TABS 2 qHS NIACIN 46510029716 No Longer Active Alina Castaneda MD PhD Active AMOXICILLIN 500 MG CAPS 2 po BID x 10 days AMOXICILLIN 57508328583 No Longer Active Alina Castaneda MD PhD Active ZYPREXA 7.5 MG TABS 1 at HS OLANZAPINE 76688261339 Active Alina Castaneda MD PhD Active THIOTHIXENE 5 MG CAPS by mouth twice a day THIOTHIXENE 50559555158 Active Alina Castaneda MD PhD Active HYDROCODONE-ACETAMINOPHEN 7.5-325 MG TABS 1 four times a day as needed for pain HYDROCODONE-ACETAMINOPHEN 12009319555 No Longer Active Alina Castaneda MD PhD Active METFORMIN HCL ER 500 MG [id number]-[id number] Take three tablets by mouth everyday METFORMIN HCL 50528219373 Active Zainnivia Araceli [employer] Active DOXEPIN HCL 10 MG CAPS Take 1 tablet by mouth daily DOXEPIN HCL 65756904438 No Longer Active Salina Han A Active NAVANE 10 MG CAPS 1/2 tablet twice a day THIOTHIXENE No Longer Active Salina Han [facility] Active CYCLOBENZAPRINE HCL 10 MG TABS 1/2 tablet by mouth every 8 hours as needed for muscle spasms CYCLOBENZAPRINE HCL 01131516195 No Longer Active Alina Castaneda MD PhD Active BACTROBAN 2 % CREAM apply to ear and nose twice daily MUPIROCIN CALCIUM 49686206186 No Longer Active Alina Castaneda MD PhD Active HYDROCODONE-ACETAMINOPHEN 5-325 MG TABS take one tablet by mouth every four hours as needed for pain HYDROCODONE-ACETAMINOPHEN 11046973996 No Longer Active Alina Castaneda MD PhD Active ZOLPIDEM TARTRATE 10 MG TABS take at bedtime ZOLPIDEM TARTRATE 47985091626 Active Alina Castaneda MD PhD Active ZYPREXA 5 MG TABS take one tablet by mouth every evening OLANZAPINE 64413932814 No Longer Active Alina Castaneda MD PhD Active BD INSULIN SYRINGE 28G X 1/2" 1 ML MISC use as directed INSULIN SYRINGE -NEEDLE U-100 52313469977 Active Alina Castaneda MD PhD Active ALBUTEROL SULFATE 0.083 % NEBU SOLN one vial per nebulizer TID and PRN cough/ soa ALBUTEROL SULFATE 27911191834 No Longer Active Alina Castaneda MD PhD Active GUAIFENESIN 600 MG AY55L-SBS 1 tablet by mouth twice daily if needed for cough GUAIFENESIN 63375362502 No Longer Active Marvel MARROQUIN Active AZITHROMYCIN 500 MG SOLR 1 po q day AZITHROMYCIN 56071984444 No Longer Active Alina Castaneda MD PhD Active METOPROLOL SUCCINATE 100 MG HZ65J-LND 1 by mouth daily for blood pressure METOPROLOL SUCCINATE 58315235372 Active Alina Castaneda MD PhD Active PROMETHAZINE-CODEINE 6.25-10 MG/5ML SYRP 1 tsp po q 6 hours prn cough PROMETHAZINE-CODEINE 14363858187 No Longer Active Alina Castaneda MD PhD Active CEFDINIR 300 MG CAPS by mouth twice a day CEFDINIR 48445917406 No Longer Active Ailna Castaneda MD PhD Active METFORMIN HCL 500 MG WI25K-NAF Take 3 tablets by mouth everyday METFORMIN HCL 67178009121 No Longer Active Alina Castaneda MD PhD Active LEVEMIR 100 UNIT/ML SOLN 90 units SQ qHS INSULIN DETEMIR 09351335265 No Longer Active Marvel MARROQUIN Active TOPROL XL 100 MG [id number]-POY 1 @ HS METOPROLOL SUCCINATE 44682778150 No Longer Active Marvel MARROQUIN Active ALLOPURINOL 300 MG TABS Take one by mouth daily ALLOPURINOL 32307833158 Active Alina Castaneda MD PhD Active ZYPREXA 10 MG TABS Take one by mouth daily OLANZAPINE 52847938066 No Longer Active Alina Castaneda MD PhD Active NOVOLOG 100 UNIT/ML SOLN 40 units with every meal INSULIN ASPART 27111163108 No Longer Active Alina Castaneda MD PhD Active VERAPAMIL HCL CR 120 MG TAB CR 1 qPM VERAPAMIL HCL 02771415093 No Longer Active Salina Han A Active ZYPREXA 15 MG TABS Take 1 tablet by mouth daily OLANZAPINE 33598335387 No Longer Active Marvel MARROQUIN Active LISINOPRIL 20 MG TABS 1 BID LISINOPRIL 27491145165 Active Mao Rodriguez MD Active ALBUTEROL SULFATE (2.5 MG/3ML) 0.083% NEBU 1 neb tid and prn cough ALBUTEROL SULFATE 77121345796 No Longer Active Alina Castaneda MD PhD Active FLUVOXAMINE MALEATE 100 MG TABS Take one (1) tablet by mouth am, 05/25 at noon, 1 pm FLUVOXAMINE MALEATE 45548316244 Active Alina Castaneda MD PhD Active TRAVATAN Z 0.004 % SOLN 1 gtt each eye daily TRAVOPROST 06991771503 Active Alina Mendez Active LANTUS 100 UNIT/ML SOLN 60 units sq q hs INSULIN GLARGINE 93191973260 No Longer Active Alina Mendez Active UROXATRAL 10 MG JL61B-DON Take 1 tablet by mouth daily ALFUZOSIN HCL 61097058825 Active Tanya MARROQUIN Active ALBUTEROL SULFATE (2.5 MG/3ML) 0.083% NEBU 1 neb tid and prn cough ALBUTEROL SULFATE (2.5 MG/3ML) 0.083% NEBU 716229 ALBUTEROL SULFATE Inactive ZYPREXA 15 MG TABS Take 1 tablet by mouth daily ZYPREXA 15 MG TABS 054456 OLANZAPINE Inactive VERAPAMIL HCL CR 120 MG TAB CR 1 qPM VERAPAMIL HCL CR 120 MG TAB CR VERAPAMIL HCL Inactive ZYPREXA 10 MG TABS Take one by mouth daily ZYPREXA 10 MG TABS 462010 OLANZAPINE Inactive TOPROL XL 100 MG [id number] 1 @ HS TOPROL XL 100 MG BE74M-NVZ METOPROLOL SUCCINATE Inactive LEVEMIR 100 UNIT/ML SOLN 90 units SQ qHS LEVEMIR 100 UNIT/ML SOLN INSULIN DETEMIR Inactive PROMETHAZINE-CODEINE 6.25-10 MG/5ML SYRP 1 tsp po q 6 hours prn cough PROMETHAZINE-CODEINE 6.25-10 MG/5ML SYRP 762745 PROMETHAZINE- CODEINE Inactive GUAIFENESIN 600 MG CQ28Q-JIW 1 tablet by mouth twice daily if needed for cough GUAIFENESIN 600 MG CG20D-QUF GUAIFENESIN Inactive ALBUTEROL SULFATE 0.083 % NEBU SOLN one vial per nebulizer TID and PRN cough/ soa ALBUTEROL SULFATE 0.083 % NEBU SOLN 294566 ALBUTEROL SULFATE Inactive ZYPREXA 5 MG TABS take one tablet by mouth every evening ZYPREXA 5 MG TABS 750627 OLANZAPINE Inactive HYDROCODONE-ACETAMINOPHEN 5-325 MG TABS take one tablet by mouth every four hours as needed for pain HYDROCODONE-ACETAMINOPHEN 5-325 MG TABS 078829 HYDROCODONE-ACETAMINOPHEN Inactive BACTROBAN 2 % CREAM apply to ear and nose twice daily BACTROBAN 2 % CREAM 654180 MUPIROCIN CALCIUM Inactive CYCLOBENZAPRINE HCL 10 MG TABS 1/2 tablet by mouth every 8 hours as needed for muscle spasms CYCLOBENZAPRINE HCL 10 MG TABS 405409 CYCLOBENZAPRINE HCL Inactive NAVANE 10 MG CAPS 1/2 tablet twice a day NAVANE 10 MG CAPS THIOTHIXENE Inactive DOXEPIN HCL 10 MG CAPS Take 1 tablet by mouth daily DOXEPIN HCL 10 MG CAPS 8434966 DOXEPIN HCL Inactive HYDROCODONE-ACETAMINOPHEN 7.5-325 MG TABS 1 four times a day as needed for pain HYDROCODONE-ACETAMINOPHEN 7.5-325 MG TABS 402311 HYDROCODONE-ACETAMINOPHEN Inactive NIACIN CR 500 MG CR-TABS 2 qHS NIACIN CR 500 MG CR- TABS NIACIN Inactive ORPHENADRINE CITRATE ER 100 MG [id number] 1 every 12 hr. as needed ORPHENADRINE CITRATE ER 100 MG ZU25P-SCT ORPHENADRINE CITRATE Inactive ACETAMINOPHEN 500 MG TABS 2 Q 6 hr. PRN ACETAMINOPHEN 500 MG TABS 590588 ACETAMINOPHEN Inactive SAPHRIS 5 MG SUBL by mouth twice a day SAPHRIS 5 MG SUBL ASENAPINE MALEATE Inactive NIACIN ER 500 MG CR-TABS 4 qHS (for triglycerides) NIACIN ER 500 MG CR-TABS NIACIN Inactive IBUPROFEN 200 MG TABS 1 Q 6 hr. PRN IBUPROFEN 200 MG TABS 433892 IBUPROFEN Inactive FLUTICASONE PROPIONATE 50 MCG/ACT SUSP 2 sprays each nostril qDay x 30 days FLUTICASONE PROPIONATE 50 MCG/ACT SUSP 806168 FLUTICASONE PROPIONATE Inactive EQL TRUETEST TEST STRP Test blood sugar TID EQL TRUETEST TEST STRP GLUCOSE BLOOD Inactive TERESE CONTOUR TEST STRP monitor blood sugars 3x/day TERESE CONTOUR TEST STRP GLUCOSE BLOOD Inactive DETROL LA 4 MG BB89N-DQO Take 1 tablet by mouth daily DETROL LA 4 MG CY31O-KCP TOLTERODINE TARTRATE Inactive CEFDINIR 300 MG CAPS by mouth twice a day CEFDINIR 300 MG CAPS 256237 CEFDINIR Inactive AZITHROMYCIN 500 MG SOLR 1 po q day AZITHROMYCIN 500 MG SOLR 987001 AZITHROMYCIN Inactive AMOXICILLIN 500 MG CAPS 2 po BID x 10 days AMOXICILLIN 500 MG CAPS 541036 AMOXICILLIN Inactive Immunizations Vaccine Administration Date Value [...] Fluvirin, Fluarix, Agriflu(>=18 yo)) Fluzone (>3 yrs.) [QCT571] Influenza, seasonal, injectable pneumococcal immunization administered Pneumovax 23 [CVX33] pneumococcal polysaccharide vaccine, 23 valent Vital Signs Date Name Value Unit Range Description blood pressure, diastolic 82 mm[Hg] BP garcia [...] acid - Chemistry sodium, serum 130 mmol/L 770-194 0574/05/01 potassium, serum 5.2 mmol/L 3.5-5.2 chloride, serum [...] 0.40 mg/dL 0.00-1.00 cholesterol, serum 151 mg/dL 540-405 2465/05/01 triglyceride, serum, fasting 356 mg/dL 30-200 HDL [...] HGBA1C - Chemistry sodium, serum 126 mmol/L 563-719 0565/02/26 potassium, serum 4.8 mmol/L 3.5-5.2 chloride, serum [...] DIRECT - Chemistry cholesterol, serum 158 mg/dL 062-053 6056/07/11 triglyceride, serum, fasting 489 mg/dL 30-200 HDL [...] mg/dL Encounters Code Encounter Date Provider Facility CPT-90734 Level 3 Est. Patient 15:17:18 CDT Alina Castaneda MD [facility] CPT-57517 Level 3 Est. Patient 14:25:36 [employer]ICE REPRESENTATIVE [facility] [place] CPT-97442 Level 3 Est. Patient 10:09:15 PEST CONTROL SERVICE REPRESENTATIVE [facility] [place] CPT-23703 Level 3 Est. Patient 21:28:43 CDT Alina Castaneda MD [facility]-41086 Level 3 Est. Patient 15:20:11 CDT [facility] [place] CPT-71191 Level 4 Est. Patient 19:08:12 CDT Alina Castaneda MD [facility]-26980 Level 3 Est. Patient 15:06:39 CDT [facility] [place] CPT-23564 Level 4 Est. Patient 17:48:15 CDT Alina Castaneda MD [facility]-10349 Level 3 Est. Patient 14:53:49 CDT Alina Castaneda MD [facility]-08296 Level 3 Est. Patient 09:35:16 CDT Alina Castaneda MD [facility]-24937 Level 3 Est. Patient 12:23:22 CDT Alina Castaneda MD [facility]35329 Level 3 Est. Patient 16:19:15 CDT Alina Castaneda MD [facility]40353 Level 3 Est. Patient 21:39:56 PE[employer] CONTR[employer] SERVICE REPRESENTATIVE Alina Castaneda MD [facility]-06441 Level 4 Est. Patient 14:12:56 PE[employer] CONTROL SERVICE REPRESENTATIVE Alina Castaneda MD [facility]-07360 Level 2 Est. Patient 15:34:57 PE[employer] CONTROL SERVICE REPRESENTATIVE Alina Castaneda MD [facility]-94261 Level 3 Est. Patient 12:17:04 PE[employer] CONTROL SERVICE REPRESENTATIVE Alina Castaneda MD [facility]24825 Level 3 Est. Patient 09:18:18 PEST CONTROL SERVICE REPRESENTATIVE Marvel Charles [facility]-02330 Level 2 Est. Patient 21:50:24 CDT Alina Castaneda MD [facility]-43514 Level 3 Est. Patient 09:17:28 CDT Marvel Charles [facility]-03898 Level 4 Est. Patient 18:54:02 CDT Alina Castaneda MD [facility]81714 Level 3 Est. Patient 10:47:10 CDT Alina Castaneda MD [facility]-75039 Level 3 Est. Patient 09:22:20 CDT Marvel Charles [facility]-84310 Level 3 Est. Patient 16:39:43 CDT Marvel Charles [facility]-48658 Level 3 Est. Patient 16:05:16 CDT Alina Castaneda MD [facility]43489 Level 3 Est. Patient 00:29:15 CDT Alina Castaneda MD [facility]19438 Level 3 Est. Patient 10:49:22 [employer]OL SERVICE REPRESENTATIVE Marvel Charles [facility]-31274 Level 3 Est. Patient 21:30:19 PEST CONTROL SERVICE REPRESENTATIVE Alina Castaneda MD [facility] CPT-54915 Level 4 Est. Patient 17:04:11 PEST CONTROL SERVICE REPRESENTATIVE Marvel Charles [facility] CPT-83252 Level 3 Est. Patient 15:34:11 PEST CONTROL SERVICE REPRESENTATIVE [place] Charles [facility] CPT-68502 Level 2 Est. Patient 12:51:58 PE[employer]OL SERVICE REPRESENTATIVE Alina Castaneda MD [facility] CPT-84125 Level 3 Est. Patient 13:20:01 [employer] SERVICE REPRESENTATIVE Alina Castaneda MD [facility] CPT-98812 Level 3 Est. Patient 09:23:35 CDT Alina Castaneda MD [facility] Procedures Code Procedure Name Date Entry Date Standard Description CPT-36700 Administration single or combination vaccine inc oral 11 :49:51 CDT CPT-32639 Pneumovax 11:49:51 CDT CPT-62863 Ribs unilateral 2V 12:37:22 [employer]ICE REPRESENTATIVE CPT-09211 Chest 2V Frontal and Lat 17:15:26 CDT CPT-71370 Abx/Therapy Injection 18:54:02 CDT CPT-J0696 Rocephin 1000 mg (Ceftriaxone) 16:00:32 CDT CPT-81375 Chest 2V Frontal and Lat 15:26:45 CDT CPT-23085 Chest 2V Frontal and Lat 10:23:27 CDT CPT-55707 Venipuncture Draw Fee 10:11:00 CDT CPT-08281 Administration single or combination vaccine inc oral 11 :56:38 CDT CPT-21790 Influenza split virus > age 3 11:56:38 CDT CPT-89836 Venipuncture Draw Fee 08:49:54 PE[employer]OL SERVICE REPRESENTATIVE CPT-53811 EKG Trac and Interp 17:54:19 PEST [employer]OL SERVICE REPRESENTATIVE
--- OUTSIDE RECORDS SUMMARY | 2018-07-02 21:03 | XMS REPORT | Clinical Summary ---
Author Author Admin, TERELL Organization [facility] Address Unknown Phone Allergies, Adverse Reactions, Alerts [...] Inactive Marvel MARROQUIN FATIGUE ICD-780.79 Inactive Alina Castaenda MD PhD DIABETES MELLITUS, TYPE II, UNCONTROLLED ICD-250.02 Inactive Marvel MARROQIUN UNSPECIFIED TACHYCARDIA ICD-785.0 Inactive Alina Castaneda MD [...] with lunch and suppetr. INSULIN LISPRO (HUMAN) 18486195000 Active Marvel Mackenzieglestela AVAYA ENGINEER Active LEVEMIR 100 UNIT/ML SOLN Take 70 u at 7-8pm INSULIN DETEMIR 39583364680 Active Marvel Mackenzieglari AVAYA ENGINEER Active BD INSULIN SYRINGE 28G X 1/2" 1 ML MISC 1 four times per day INSULIN SYRINGE-NEEDLE U-100 32422464039 Active Alina Castaneda MD PhD Active CYCLOBENZAPRINE HCL 10 MG TABS 1 tablet by mouth three times daily, scheduled CYCLOBENZAPRINE HCL 33463251504 Active Alina Castaneda MD PhD Active TOLTERODINE TARTRATE 2 MG TABS 1 pill twice daily, for bladder TOLTERODINE TARTRATE 49085025362 Active Alina Castaneda MD PhD Active DETROL LA 4 MG [id number] Take 1 tablet by mouth daily TOLTERODINE TARTRATE 64038505168 No Longer Active Alina Castaneda MD PhD Active HYDROCODONE-ACETAMINOPHEN 5-325 MG TABS 2 tabs by mouth three times daily as needed for pain HYDROCODONE-ACETAMINOPHEN 56035907813 Active Alina Castaneda MD PhD Active TERESE CONTOUR TEST STRP monitor blood sugars 3x/day GLUCOSE BLOOD 69230864102 No Longer Active Alina Castaneda MD PhD Active EQL TRUETEST TEST STRP Test blood sugar TID GLUCOSE BLOOD 61405925911 No Longer Active Alina Castaneda MD PhD Active FLUTICASONE PROPIONATE 50 MCG/ACT SUSP 2 sprays each nostril qDay x 30 days FLUTICASONE PROPIONATE 94855535169 No Longer Active Alina Castaneda MD PhD Active IBUPROFEN 200 MG TABS 1 Q 6 hr. PRN IBUPROFEN 35276899996 No Longer Active Alina Castaneda MD PhD Active NIACIN ER 500 MG CR-TABS 4 qHS (for triglycerides) NIACIN 87929739276 No Longer Active Alina Castaneda MD PhD Active TRUETEST TEST STRP check sugars 4x/day GLUCOSE BLOOD 37968734544 Active Alina Castaneda MD PhD Active ALFUZOSIN HCL ER 10 MG [id number] 1 tablet daily ALFUZOSIN HCL 14434998083 Active Vanessa Hickey MD Active CLONAZEPAM 1 MG TABS 1 pill by mouth three times daily CLONAZEPAM 18956062267 Active Alina Castaneda MD PhD Active LOVAZA 1 GM CAPS 4 daily (for triglycerides) [id number] ETHYL ESTERS 12879658615 Active Alina Castaneda MD PhD Active SAPHRIS 5 MG SUBL by mouth twice a day ASENAPINE MALEATE 27995599796 No Longer Active Marvel MARROQUIN Active ACETAMINOPHEN 500 MG TABS 2 Q 6 hr. PRN ACETAMINOPHEN 57084161121 No Longer Active Mallashondanivia Ziglari AVAYA ENGINEER Active VERAPAMIL HCL ER 120 MG [id number] 1 pill by mouth twice a day, for headache prevention/control VERAPAMIL HCL 64640976953 Active Alina Castaneda MD PhD Active ORPHENADRINE CITRATE ER 100 MG [id number]-UTC 1 every 12 hr. as needed ORPHENADRINE CITRATE 43541320153 No Longer Active Alina Castaneda MD PhD Active NIACIN CR 500 MG CR-TABS 2 qHS NIACIN 25916227367 No Longer Active Alina Castaneda MD PhD Active AMOXICILLIN 500 MG CAPS 2 po BID x 10 days AMOXICILLIN 75255818242 No Longer Active Alina Castaneda MD PhD Active ZYPREXA 7.5 MG TABS 1 at HS OLANZAPINE 30792378628 Active Alina Castaneda MD PhD Active THIOTHIXENE 5 MG CAPS by mouth twice a day THIOTHIXENE 57598538193 Active Alina Castaneda MD PhD Active HYDROCODONE-ACETAMINOPHEN 7.5-325 MG TABS 1 four times a day as needed for pain HYDROCODONE-ACETAMINOPHEN 35886328221 No Longer Active Alina Castaneda MD PhD Active METFORMIN HCL ER 500 MG [id number]-UQA Take three tablets by mouth everyday METFORMIN HCL 16073419398 Active Alina Castaneda MD PhD Active DOXEPIN HCL 10 MG CAPS Take 1 tablet by mouth daily DOXEPIN HCL 19222226214 No Longer Active Salina ROJAS Active NAVANE 10 MG CAPS 1/2 tablet twice a day THIOTHIXENE No Longer Active Salian ROBBINSA Active CYCLOBENZAPRINE HCL 10 MG TABS 1/2 tablet by mouth every 8 hours as needed for muscle spasms CYCLOBENZAPRINE HCL 13215127830 No Longer Active Alina Castaneda MD PhD Active BACTROBAN 2 % CREAM apply to ear and nose twice daily MUPIROCIN CALCIUM 49359021241 No Longer Active Alina Castaneda MD PhD Active HYDROCODONE-ACETAMINOPHEN 5-325 MG TABS take one tablet by mouth every four hours as needed for pain HYDROCODONE-ACETAMINOPHEN 73048951435 No Longer Active Alina Castaneda MD PhD Active ZOLPIDEM TARTRATE 10 MG TABS take at bedtime ZOLPIDEM TARTRATE 99321483717 Active Alina Castaneda MD PhD Active ZYPREXA 5 MG TABS take one tablet by mouth every evening OLANZAPINE 03033883343 No Longer Active Alina Castaneda MD PhD Active ALBUTEROL SULFATE 0.083 % NEBU SOLN one vial per nebulizer TID and PRN cough/ soa ALBUTEROL SULFATE 98813477659 No Longer Active Alina Castaneda MD PhD Active GUAIFENESIN 600 MG XP36P-YNE 1 tablet by mouth twice daily if needed for cough GUAIFENESIN 11346905694 No Longer Active Marvel MENDOZAP Active AZITHROMYCIN 500 MG SOLR 1 po q day AZITHROMYCIN 68791983840 No Longer Active Alina Castaneda MD PhD Active METOPROLOL SUCCINATE 100 MG HH06J-HRQ 1 by mouth daily for blood pressure METOPROLOL SUCCINATE 16089875980 Active Alina Castaneda MD PhD Active PROMETHAZINE-CODEINE 6.25-10 MG/5ML SYRP 1 tsp po q 6 hours prn cough PROMETHAZINE-CODEINE 06137765951 No Longer Active Alina Castaneda MD PhD Active CEFDINIR 300 MG CAPS by mouth twice a day CEFDINIR 96098775375 No Longer Active Alina Castaneda MD PhD Active METFORMIN HCL 500 MG [id number]-ZZV Take 3 tablets by mouth everyday METFORMIN HCL 63490012981 No Longer Active Alina Castaneda MD PhD Active LEVEMIR 100 UNIT/ML SOLN 90 units SQ qHS INSULIN DETEMIR 77175514811 No Longer Active Marvel MARROQUIN Active TOPROL XL 100 MG [id number]-UNI 1 @ HS METOPROLOL SUCCINATE 39591023577 No Longer Active Marvel MARROQUIN Active ALLOPURINOL 300 MG TABS Take one by mouth daily ALLOPURINOL 81568263623 Active Alina Castaneda MD PhD Active ZYPREXA 10 MG TABS Take one by mouth daily OLANZAPINE 75550274293 No Longer Active Alina Castaneda MD PhD Active NOVOLOG 100 UNIT/ML SOLN 40 units with every meal INSULIN ASPART 39580056663 No Longer Active Alina Castaneda MD PhD Active VERAPAMIL HCL CR 120 MG TAB CR 1 qPM VERAPAMIL HCL 38679768189 No Longer Active Salina Emely [facility] Active ZYPREXA 15 MG TABS Take 1 tablet by mouth daily OLANZAPINE 50675941213 No Longer Active Marvel MARROQUIN Active LISINOPRIL 20 MG TABS 1 BID LISINOPRIL 79705207280 Active Alina Castaneda MD PhD Active ALBUTEROL SULFATE (2.5 MG/3ML) 0.083% NEBU 1 neb tid and prn cough ALBUTEROL SULFATE 33626803730 No Longer Active Alina Castaneda MD PhD Active FLUVOXAMINE MALEATE 100 MG TABS Take one (1) tablet by mouth am, 1/2 at noon, 1 pm FLUVOXAMINE MALEATE 57630509860 Active Alina Castaneda MD PhD Active TRAVATAN Z 0.004 % SOLN 1 gtt each eye daily TRAVOPROST 81793116422 Active Alina Mendez Active LANTUS 100 UNIT/ML SOLN 60 units sq q hs INSULIN GLARGINE 88467262626 No Longer Active Alina Mendez Active UROXATRAL 10 MG [id number]-AYF Take 1 tablet by mouth daily ALFUZOSIN HCL 79333990053 Active Tanya MARROQUIN Active ALBUTEROL SULFATE (2.5 MG/3ML) 0.083% NEBU 1 neb tid and prn cough ALBUTEROL SULFATE (2.5 MG/3ML) 0.083% NEBU 264616 ALBUTEROL SULFATE Inactive ZYPREXA 15 MG TABS Take 1 tablet by mouth daily ZYPREXA 15 MG TABS 775483 OLANZAPINE Inactive VERAPAMIL HCL CR 120 MG TAB CR 1 qPM VERAPAMIL HCL CR 120 MG TAB CR VERAPAMIL HCL Inactive ZYPREXA 10 MG TABS Take one by mouth daily ZYPREXA 10 MG TABS 170927 OLANZAPINE Inactive TOPROL XL 100 MG [id number] 1 @ HS TOPROL XL 100 MG AM32N-PIO METOPROLOL SUCCINATE Inactive LEVEMIR 100 UNIT/ML SOLN 90 units SQ qHS LEVEMIR 100 UNIT/ML SOLN INSULIN DETEMIR Inactive PROMETHAZINE-CODEINE 6.25-10 MG/5ML SYRP 1 tsp po q 6 hours prn cough PROMETHAZINE-CODEINE 6.25-10 MG/5ML SYRP 272938 PROMETHAZINE- CODEINE Inactive GUAIFENESIN 600 MG FD45U-CQC 1 tablet by mouth twice daily if needed for cough GUAIFENESIN 600 MG [id number]-BYG GUAIFENESIN Inactive ALBUTEROL SULFATE 0.083 % NEBU SOLN one vial per nebulizer TID and PRN cough/ soa ALBUTEROL SULFATE 0.083 % NEBU SOLN 931021 ALBUTEROL SULFATE Inactive ZYPREXA 5 MG TABS take one tablet by mouth every evening ZYPREXA 5 MG TABS 436754 OLANZAPINE Inactive HYDROCODONE-ACETAMINOPHEN 5-325 MG TABS take one tablet by mouth every four hours as needed for pain HYDROCODONE-ACETAMINOPHEN 5-325 MG TABS 095462 HYDROCODONE-ACETAMINOPHEN Inactive BACTROBAN 2 % CREAM apply to ear and nose twice daily BACTROBAN 2 % CREAM 130086 MUPIROCIN CALCIUM Inactive CYCLOBENZAPRINE HCL 10 MG TABS 1/2 tablet by mouth every 8 hours as needed for muscle spasms CYCLOBENZAPRINE HCL 10 MG TABS 279444 CYCLOBENZAPRINE HCL Inactive NAVANE 10 MG CAPS 1/2 tablet twice a day NAVANE 10 MG CAPS THIOTHIXENE Inactive DOXEPIN HCL 10 MG CAPS Take 1 tablet by mouth daily DOXEPIN HCL 10 MG CAPS 7997518 DOXEPIN HCL Inactive HYDROCODONE-ACETAMINOPHEN 7.5-325 MG TABS 1 four times a day as needed for pain HYDROCODONE-ACETAMINOPHEN 7.5-325 MG TABS 451415 HYDROCODONE-ACETAMINOPHEN Inactive NIACIN CR 500 MG CR-TABS 2 qHS NIACIN CR 500 MG CR- TABS NIACIN Inactive ORPHENADRINE CITRATE ER 100 MG US39Y-QPH 1 every 12 hr. as needed ORPHENADRINE CITRATE ER 100 MG [id number] ORPHENADRINE CITRATE Inactive ACETAMINOPHEN 500 MG TABS 2 Q 6 hr. PRN ACETAMINOPHEN 500 MG TABS 477798 ACETAMINOPHEN Inactive SAPHRIS 5 MG SUBL by mouth twice a day SAPHRIS 5 MG SUBL ASENAPINE MALEATE Inactive NIACIN ER 500 MG CR-TABS 4 qHS (for triglycerides) NIACIN ER 500 MG CR-TABS NIACIN Inactive IBUPROFEN 200 MG TABS 1 Q 6 hr. PRN IBUPROFEN 200 MG TABS 737847 IBUPROFEN Inactive FLUTICASONE PROPIONATE 50 MCG/ACT SUSP 2 sprays each nostril qDay x 30 days FLUTICASONE PROPIONATE 50 MCG/ACT SUSP 342645 FLUTICASONE PROPIONATE Inactive EQL TRUETEST TEST STRP Test blood sugar TID EQL TRUETEST TEST STRP GLUCOSE BLOOD Inactive TERESE CONTOUR TEST STRP monitor blood sugars 3x/day TERESE CONTOUR TEST STRP GLUCOSE BLOOD Inactive DETROL LA 4 MG GI91O-BRG Take 1 tablet by mouth daily DETROL LA 4 MG [id number]-QNF TOLTERODINE TARTRATE Inactive CEFDINIR 300 MG CAPS by mouth twice a day CEFDINIR 300 MG CAPS 724330 CEFDINIR Inactive AZITHROMYCIN 500 MG SOLR 1 po q day AZITHROMYCIN 500 MG SOLR 089483 AZITHROMYCIN Inactive AMOXICILLIN 500 MG CAPS 2 po BID x 10 days AMOXICILLIN 500 MG CAPS 812221 AMOXICILLIN Inactive Immunizations Vaccine Administration Date Value [...] Fluvirin, Fluarix, Agriflu(>=18 yo)) Fluzone (>3 yrs.) [[id number]] Influenza, seasonal, injectable pneumococcal immunization administered Pneumovax [...] HGBA1C - Chemistry sodium, serum 130 mmol/L 704-187 5800/06/09 potassium, serum 4.0 mmol/L 3.5-5.2 chloride, serum [...] acid - Chemistry sodium, serum 130 mmol/L 368-848 2213/05/01 potassium, serum 5.2 mmol/L 3.5-5.2 chloride, serum [...] 0.40 mg/dL 0.00-1.00 cholesterol, serum 151 mg/dL [phone]/05/01 triglyceride, serum, fasting 356 mg/dL 30-200 HDL [...] HGBA1C - Chemistry sodium, serum 126 mmol/L 446-848 4610/02/26 potassium, serum 4.8 mmol/L 3.5-5.2 chloride, serum [...] DIRECT - Chemistry cholesterol, serum 158 mg/dL 474-051 4302/07/11 triglyceride, serum, fasting 489 mg/dL 30-200 HDL [...] mg/dL Encounters Code Encounter Date Provider Facility CPT-94958 Level 3 Est. [facility]PT-57168 Level 3 Est. Patient 08:20:05 CDT Alina Castaneda MD PhD [facility] CPT-94342 Level 3 Est. Patient 15:17:18 CDT Alina Castaneda MD PhD [facility] CPT-06463 Level 3 Est. Patient 14:25:36 SENIOR AUTOMATION ENGINEER [facility] Gurdeepestela [facility] CPT-81002 Level 3 Est. Patient 10:09:15 SENIOR AUTOMATION ENGINEER [facility] CPT-86746 Level 3 Est. Patient 21:28:43 CDT Alina Castaneda MD PhD [facility] CPT-25221 Level 3 Est. Patient 15:20:11 CDT Zainnivia Charles [facility] CPT-08925 Level 4 Est. Patient 19:08:12 CDT Alina Castaneda MD [facility]-25068 Level 3 Est. [facility] 15:06:[facility] [place] [facility] [place] Level 4 Est. Patient 17:48:15 CDT Alina Castaneda MD [facility]-51868 Level 3 Est. Patient 14:53:49 CDT Alina Castaneda MD [facility]-72530 Level 3 Est. Patient 09:35:16 CDT Alina Castaneda MD [facility]-16880 Level 3 Est. Patient 12:23:22 CDT Alina Castaneda MD [facility]-73317 Level 3 Est. Patient 16:19:15 CDT Alina Castaneda MD [facility]-25513 Level 3 Est. Patient 21:39:56 SENIOR AUTOMATION ENGINEER Alina Castaneda MD [facility]-35625 Level 4 Est. Patient 14:12:56 SENIOR AUTOMATION ENGINEER Alina Castaneda MD [facility]-69738 Level 2 Est. Patient 15:34:57 SENIOR AUTOMATION ENGINEER Alian Castaneda MD [facility]-36795 Level 3 Est. Patient 12:17:04 SENIOR AUTOMATION ENGINEER Alina Castaneda MD [facility]-36603 Level 3 Est. Patient 09:18:18 SENIOR AUTOMATION ENGINEER Marvel Charles [facility] [place] [facility] [place]-[address] Level 2 Est. Patient 21:50:24 CDT Alina Castaneda MD [facility]-52686 Level 3 Est. Patient 09:17:28 CDT Marvel Charles [facility] CPT-65938 Level 4 Est. Patient 18:54:02 CDT Alina Castaneda MD [facility] CPT-70567 Level 3 Est. Patient 10:47:10 CDT Alina Castaneda MD [facility] CPT-42894 Level 3 Est. Patient 09:22:20 CDT Zainnivia Araceli [facility] CPT-71258 Level 3 Est. Patient 16:39:43 CDT Marvel Araceli [facility] CPT-34337 Level 3 Est. Patient 16:05:16 CDT Alina Castaneda MD [facility] CPT-04409 Level 3 Est. Patient 00:29:15 CDT Alina Castaneda MD [facility] CPT-08417 Level 3 Est. Patient 10:49:22 SENIOR AUTOMATION ENGINEER Marvel Charles [facility] CPT-47410 Level 3 Est. Patient 21:30:19 SENIOR AUTOMATION ENGINEER Alina Castaneda MD [facility] CPT-98396 Level 4 Est. Patient 17:04:11 SENIOR AUTOMATION ENGINEER Brooksjohn Charles [facility] CPT-00716 Level 3 Est. Patient 15:34:11 SENIOR AUTOMATION ENGINEER Marvel Charles [facility] CPT-70366 Level 2 Est. Patient 12:51:58 SENIOR AUTOMATION ENGINEER Alina Castaneda MD [facility] CPT-43576 Level 3 Est. Patient 13:20:01 SENIOR AUTOMATION ENGINEER Alina Castaneda MD [facility] CPT-91558 Level 3 Est. Patient 09:23:35 CDT Alina Castaneda MD [facility] Procedures Code Procedure Name Date Entry Date Standard Description [facility]87877 Administration single or combination vaccine inc oral 11 :49:51 CDT CPT-05829 Pneumovax 11:49:51 CDT CPT-01914 Ribs unilateral 2V 12:37:22 SENIOR AUTOMATION ENGINEER CPT-00619 Chest 2V Frontal and Lat 17:15:26 CDT CPT-64012 Abx/Therapy Injection 18:54:02 CDT CPT-J0696 Rocephin 1000 mg (Ceftriaxone) 16:00:32 CDT CPT-98229 Chest 2V Frontal and Lat 15:26:45 CDT CPT-64472 Chest 2V Frontal and Lat 10:23:27 CDT CPT-12833 Venipuncture Draw Fee 10:11:00 CDT CPT-14160 Administration single or combination vaccine inc oral 11 :56:38 CDT CPT-68686 Influenza split virus > age 3 11:56:38 CDT CPT-23397 Venipuncture Draw Fee 08:49:54 SENIOR AUTOMATION ENGINEER CPT-18004 EKG Trac and Interp 17:54:19 SENIOR AUTOMATION ENGINEER
--- OUTSIDE RECORDS SUMMARY | 2018-07-02 21:05 | XMS REPORT | Clinical Summary ---
Author Author Admin, TERELL Organization [facility] Address Unknown Phone Allergies, Adverse [...] four times per day INSULIN SYRINGE-NEEDLE U-100 [id number] Active Alina Castaneda MD PhD Active CYCLOBENZAPRINE HCL 10 MG TABS 1 tablet by mouth three times daily, scheduled CYCLOBENZAPRINE HCL 97055631323 Active Alina Castaneda MD PhD Active HUMALOG 100 UNIT/ML SOLN take 40u with each meal INSULIN LISPRO (HUMAN) 20797447046 Active Alina Castaneda MD PhD Active TOLTERODINE TARTRATE 2 MG TABS 1 pill twice daily, for bladder TOLTERODINE TARTRATE 15720087079 Active Alina Castaneda MD PhD Active DETROL LA 4 MG [id number] Take 1 tablet by mouth daily TOLTERODINE TARTRATE 54129267966 No Longer Active Alina Castaneda MD PhD Active HYDROCODONE-ACETAMINOPHEN 5-325 MG TABS 2 tabs by mouth three times daily as needed for pain HYDROCODONE-ACETAMINOPHEN 99155549588 Active Alina Castaneda MD PhD Active TERESE CONTOUR TEST STRP monitor blood sugars 3x/day GLUCOSE BLOOD 56466617997 No Longer Active Alina Castaneda MD PhD Active EQL TRUETEST TEST STRP Test blood sugar TID GLUCOSE BLOOD 01393251707 No Longer Active Alina Castaneda MD PhD Active FLUTICASONE PROPIONATE 50 MCG/ACT SUSP 2 sprays each nostril qDay x 30 days FLUTICASONE PROPIONATE 10615095204 No Longer Active Alina Castaneda MD PhD Active IBUPROFEN 200 MG TABS 1 Q 6 hr. PRN IBUPROFEN 42132004232 No Longer Active Alina Castaneda MD PhD Active NIACIN ER 500 MG CR-TABS 4 qHS (for triglycerides) NIACIN 17892856584 No Longer Active Alina Castaneda MD PhD Active LEVEMIR 100 UNIT/ML SOLN Take 100u at 7-8pm INSULIN DETEMIR 04695629325 Active Alina Castaneda MD PhD Active TRUETEST TEST STRP check sugars 4x/day GLUCOSE BLOOD 20716476426 Active Alina Castaneda MD PhD Active ALFUZOSIN HCL ER 10 MG [id number] 1 tablet daily ALFUZOSIN HCL 80891604720 Active Vanessa Hickey MD Active CLONAZEPAM 1 MG TABS 1 pill by mouth three times daily CLONAZEPAM 83950317538 Active Alina Castaneda MD PhD Active LOVAZA 1 GM CAPS 4 daily (for triglycerides) [id number] ETHYL ESTERS 41181112060 Active Alina Castaneda MD PhD Active SAPHRIS 5 MG SUBL by mouth twice a day ASENAPINE MALEATE 30247352726 No Longer Active Maliheh Gurdepeglestela [facility] Active ACETAMINOPHEN 500 MG TABS 2 Q 6 hr. PRN ACETAMINOPHEN 99979302112 No Longer Active Marvel MENDOZAP Active VERAPAMIL HCL ER 120 MG [id number] 1 pill by mouth twice a day, for headache prevention/control VERAPAMIL HCL 19991117236 Active Alina Castaneda MD PhD Active ORPHENADRINE CITRATE ER 100 MG [id number] 1 every 12 hr. as needed ORPHENADRINE CITRATE 66832767319 No Longer Active Alina Castaneda MD PhD Active NIACIN CR 500 MG CR-TABS 2 qHS NIACIN 13692674384 No Longer Active Alina Castaneda MD PhD Active AMOXICILLIN 500 MG CAPS 2 po BID x 10 days AMOXICILLIN 43619891008 No Longer Active Alina Castaneda MD PhD Active ZYPREXA 7.5 MG TABS 1 at HS OLANZAPINE 13331621480 Active Alina Castaneda MD PhD Active THIOTHIXENE 5 MG CAPS by mouth twice a day THIOTHIXENE 42094998693 Active Alina Castaneda MD PhD Active HYDROCODONE-ACETAMINOPHEN 7.5-325 MG TABS 1 four times a day as needed for pain HYDROCODONE-ACETAMINOPHEN 23173512680 No Longer Active Alina Castaneda MD PhD Active METFORMIN HCL ER 500 MG [id number] Take three tablets by mouth everyday METFORMIN HCL 21403802630 Active Marvel MENDOZAP Active DOXEPIN HCL 10 MG CAPS Take 1 tablet by mouth daily DOXEPIN HCL 26009302576 No Longer Active Salina Han [facility] Active NAVANE 10 MG CAPS 1/2 tablet twice a day THIOTHIXENE No Longer Active Salina ROBBINS Active CYCLOBENZAPRINE HCL 10 MG TABS 1/2 tablet by mouth every 8 hours as needed for muscle spasms CYCLOBENZAPRINE HCL 92302985017 No Longer Active Alina Castaneda MD PhD Active BACTROBAN 2 % CREAM apply to ear and nose twice daily MUPIROCIN CALCIUM 16261978016 No Longer Active Alina Castaneda MD PhD Active HYDROCODONE-ACETAMINOPHEN 5-325 MG TABS take one tablet by mouth every four hours as needed for pain HYDROCODONE-ACETAMINOPHEN 41156574870 No Longer Active Alina Castaneda MD PhD Active ZOLPIDEM TARTRATE 10 MG TABS take at bedtime ZOLPIDEM TARTRATE 85284828072 Active Alina Castaneda MD PhD Active ZYPREXA 5 MG TABS take one tablet by mouth every evening OLANZAPINE 76163624014 No Longer Active Alina Castaneda MD PhD Active ALBUTEROL SULFATE 0.083 % NEBU SOLN one vial per nebulizer TID and PRN cough/ soa ALBUTEROL SULFATE 13492314453 No Longer Active Alina Castaneda MD PhD Active GUAIFENESIN 600 MG [id number] 1 tablet by mouth twice daily if needed for cough GUAIFENESIN 56212537542 No Longer Active Marvel MARROQUIN Active AZITHROMYCIN 500 MG SOLR 1 po q day AZITHROMYCIN 31468802155 No Longer Active Alina Castaneda MD PhD Active METOPROLOL SUCCINATE 100 MG [id number] 1 by mouth daily for blood pressure METOPROLOL SUCCINATE 93965957907 Active Alina Castaneda MD PhD Active PROMETHAZINE-CODEINE 6.25-10 MG/5ML SYRP 1 tsp po q 6 hours prn cough PROMETHAZINE-CODEINE 58169279945 No Longer Active Alina Castaneda MD PhD Active CEFDINIR 300 MG CAPS by mouth twice a day CEFDINIR 56089892071 No Longer Active Alina Castaneda MD PhD Active METFORMIN HCL 500 MG [id number] Take 3 tablets by mouth everyday METFORMIN HCL 00977323459 No Longer Active Alina Castaneda MD PhD Active LEVEMIR 100 UNIT/ML SOLN 90 units SQ qHS INSULIN DETEMIR 02957116407 No Longer Active Marvel MARROQUIN Active TOPROL XL 100 MG [id number] 1 @ HS METOPROLOL SUCCINATE 44376214911 No Longer Active Marvel MARROQUIN Active ALLOPURINOL 300 MG TABS Take one by mouth daily ALLOPURINOL 28617561225 Active Alina Castaneda MD PhD Active ZYPREXA 10 MG TABS Take one by mouth daily OLANZAPINE 97763032387 No Longer Active Alina Castaneda MD PhD Active NOVOLOG 100 UNIT/ML SOLN 40 units with every meal INSULIN ASPART 55283011549 No Longer Active Alina Castaneda MD PhD Active VERAPAMIL HCL CR 120 MG TAB CR 1 qPM VERAPAMIL HCL 05020033446 No Longer Active Salina Han A Active ZYPREXA 15 MG TABS Take 1 tablet by mouth daily OLANZAPINE 44073892451 No Longer Active Marvel MARROQUIN Active LISINOPRIL 20 MG TABS 1 BID LISINOPRIL 68406698421 Active Mao Rodriguez MD Active ALBUTEROL SULFATE (2.5 MG/3ML) 0.083% NEBU 1 neb tid and prn cough ALBUTEROL SULFATE 25901204090 No Longer Active Alina Castaneda MD PhD Active FLUVOXAMINE MALEATE 100 MG TABS Take one (1) tablet by mouth am, 1/2 at noon, 1 pm FLUVOXAMINE MALEATE 62483914871 Active Alina Castaneda MD PhD Active TRAVATAN Z 0.004 % SOLN 1 gtt each eye daily TRAVOPROST 03734198084 Active Alina Mendez Active LANTUS 100 UNIT/ML SOLN 60 units sq q hs INSULIN GLARGINE 32038591991 No Longer Active Alina Mendez Active UROXATRAL 10 MG [id number]-VRJ Take 1 tablet by mouth daily ALFUZOSIN HCL 18592224500 Active Tanya MARROQUIN Active ALBUTEROL SULFATE (2.5 MG/3ML) 0.083% NEBU 1 neb tid and prn cough ALBUTEROL SULFATE (2.5 MG/3ML) 0.083% NEBU 844182 ALBUTEROL SULFATE Inactive ZYPREXA 15 MG TABS Take 1 tablet by mouth daily ZYPREXA 15 MG TABS 149618 OLANZAPINE Inactive VERAPAMIL HCL CR 120 MG TAB CR 1 qPM VERAPAMIL HCL CR 120 MG TAB CR VERAPAMIL HCL Inactive ZYPREXA 10 MG TABS Take one by mouth daily ZYPREXA 10 MG TABS 385645 OLANZAPINE Inactive TOPROL XL 100 MG [id number] 1 @ HS TOPROL XL 100 MG [id number] METOPROLOL SUCCINATE Inactive LEVEMIR 100 UNIT/ML SOLN 90 units SQ qHS LEVEMIR 100 UNIT/ML SOLN INSULIN DETEMIR Inactive PROMETHAZINE-CODEINE 6.25-10 MG/5ML SYRP 1 tsp po q 6 hours prn cough PROMETHAZINE-CODEINE 6.25-10 MG/5ML SYRP 450417 PROMETHAZINE- CODEINE Inactive GUAIFENESIN 600 MG [id number]-[id number] 1 tablet by mouth twice daily if needed for cough GUAIFENESIN 600 MG [id number] GUAIFENESIN Inactive ALBUTEROL SULFATE 0.083 % NEBU SOLN one vial per nebulizer TID and PRN cough/ soa ALBUTEROL SULFATE 0.083 % NEBU SOLN 625495 ALBUTEROL SULFATE Inactive ZYPREXA 5 MG TABS take one tablet by mouth every evening ZYPREXA 5 MG TABS 199258 OLANZAPINE Inactive HYDROCODONE-ACETAMINOPHEN 5-325 MG TABS take one tablet by mouth every four hours as needed for pain HYDROCODONE-ACETAMINOPHEN 5-325 MG TABS 528987 HYDROCODONE-ACETAMINOPHEN Inactive BACTROBAN 2 % CREAM apply to ear and nose twice daily BACTROBAN 2 % CREAM 921563 MUPIROCIN CALCIUM Inactive CYCLOBENZAPRINE HCL 10 MG TABS 1/2 tablet by mouth every 8 hours as needed for muscle spasms CYCLOBENZAPRINE HCL 10 MG TABS 652700 CYCLOBENZAPRINE HCL Inactive NAVANE 10 MG CAPS 1/2 tablet twice a day NAVANE 10 MG CAPS THIOTHIXENE Inactive DOXEPIN HCL 10 MG CAPS Take 1 tablet by mouth daily DOXEPIN HCL 10 MG CAPS 0437029 DOXEPIN HCL Inactive HYDROCODONE-ACETAMINOPHEN 7.5-325 MG TABS 1 four times a day as needed for pain HYDROCODONE-ACETAMINOPHEN 7.5-325 MG TABS 405727 HYDROCODONE-ACETAMINOPHEN Inactive NIACIN CR 500 MG CR-TABS 2 qHS NIACIN CR 500 MG CR- TABS NIACIN Inactive ORPHENADRINE CITRATE ER 100 MG [id number] 1 every 12 hr. as needed ORPHENADRINE CITRATE ER 100 MG [id number] ORPHENADRINE CITRATE Inactive ACETAMINOPHEN 500 MG TABS 2 Q 6 hr. PRN ACETAMINOPHEN 500 MG TABS 232140 ACETAMINOPHEN Inactive SAPHRIS 5 MG SUBL by mouth twice a day SAPHRIS 5 MG SUBL ASENAPINE MALEATE Inactive NIACIN ER 500 MG CR-TABS 4 qHS (for triglycerides) NIACIN ER 500 MG CR-TABS NIACIN Inactive IBUPROFEN 200 MG TABS 1 Q 6 hr. PRN IBUPROFEN 200 MG TABS 288294 IBUPROFEN Inactive FLUTICASONE PROPIONATE 50 MCG/ACT SUSP 2 sprays each nostril qDay x 30 days FLUTICASONE PROPIONATE 50 MCG/ACT SUSP 209295 FLUTICASONE PROPIONATE Inactive EQL TRUETEST TEST STRP Test blood sugar TID EQL TRUETEST TEST STRP GLUCOSE BLOOD Inactive TERESE CONTOUR TEST STRP monitor blood sugars 3x/day TERESE CONTOUR TEST STRP GLUCOSE BLOOD Inactive DETROL LA 4 MG [id number] Take 1 tablet by mouth daily DETROL LA 4 MG [id number] TOLTERODINE TARTRATE Inactive CEFDINIR 300 MG CAPS by mouth twice a day CEFDINIR 300 MG CAPS 176074 CEFDINIR Inactive AZITHROMYCIN 500 MG SOLR 1 po q day AZITHROMYCIN 500 MG SOLR 924612 AZITHROMYCIN Inactive AMOXICILLIN 500 MG CAPS 2 po BID x 10 days AMOXICILLIN 500 MG CAPS 842351 AMOXICILLIN Inactive Immunizations Vaccine Administration Date Value [...] Fluvirin, Fluarix, Agriflu(>=18 yo)) Fluzone (>3 yrs.) [[id number]] Influenza, seasonal, injectable pneumococcal immunization administered Pneumovax [...] acid - Chemistry sodium, serum 130 mmol/L 656-189 2456/05/01 potassium, serum 5.2 mmol/L 3.5-5.2 chloride, serum [...] 0.40 mg/dL 0.00-1.00 cholesterol, serum 151 mg/dL 758-743 6026/05/01 triglyceride, serum, fasting 356 mg/dL 30-200 HDL [...] HGBA1C - Chemistry sodium, serum 126 mmol/L 061-916 3004/02/26 potassium, serum 4.8 mmol/L 3.5-5.2 chloride, serum [...] DIRECT - Chemistry cholesterol, serum 158 mg/dL 685-301 3880/07/11 triglyceride, serum, fasting 489 mg/dL 30-200 HDL [...] mg/dL Encounters Code Encounter Date Provider Facility CPT-85878 Level 3 Est. Patient 08:20:05 CDT Alina Castaneda MD PhD [facility]-28546 Level 3 Est. Patient 15:17:18 CDT Alina Castaneda MD PhD [facility]-69441 Level 3 Est. Patient 14:25:36 [employer] [facility]-82618 Level 3 Est. Patient 10:09:15 [employer] [facility] CPT-27447 Level 3 Est. Patient 21:28:43 CDT Alina Castaneda MD PhD [facility]-23130 Level 3 Est. Patient 15:20:11 CDT [facility] Gurdeepestela [facility]-07694 Level 4 Est. Patient 19:08:12 CDT Alina Castaneda MD PhD [facility]93191 Level 3 Est. Patient 15:06:39 CDT [facility] Gurdeepestela [facility]-66545 Level 4 Est. Patient 17:48:15 CDT [id number] Level 3 Est. Patient 14:53:49 CDT Alina Castaneda MD [id number] Level 3 Est. Patient 09:35:16 CDT Alina Castaneda MD [id number] Level 3 Est. Patient 12:23:22 CDT Alina Castaneda MD [id number] Level 3 Est. Patient 16:19:15 CDT Alina Castaneda MD [id number] Level 3 Est. Patient 21:39:56 [employer] Alina Castaneda MD [id number] Level 4 Est. Patient 14:12:56 [employer] Alina Castaneda MD [id number] Level 2 Est. Patient 15:34:57 [employer] Alina Castaneda MD [id number] Level 3 Est. Patient 12:17:04 [employer] Alina Castaneda MD [id number] Level 3 Est. Patient 09:18:18 [employer] WORK[employer] Marvel Charles [facility]-58944 Level 2 Est. Patient 21:50:24 CDT Alina Castaneda MD [id number] Level 3 Est. Patient 09:17:28 CDT Marvel Charles [facility]-68297 Level 4 Est. Patient 18:54:02 CDT Alina Castaneda MD [id number] Level 3 Est. Patient 10:47:10 CDT Alina Castaneda MD [id number] Level 3 Est. Patient 09:22:20 [facility]:39[facility] CPT-02016 Level 3 Est. Patient 16:05:16 CDT Alina Castaneda MD [facility] CPT-16101 Level 3 Est. Patient 00:29:15 CDT Alina Castaneda MD [facility] CPT-91886 Level 3 Est. Patient 10:49:22 [employer] WORK[employer] Marvel Thurstonestela [facility] CPT-18653 Level 3 Est. Patient 21:30:19 [employer] Alina Castaneda MD [facility] CPT-20224 Level 4 Est. Patient 17:04:11 [employer] [facility]-12305 Level 3 Est. Patient 15:34:11 [employer] WORK[employer] [facility] CPT-34824 Level 2 Est. Patient 12:51:58 [employer] Alina Castaneda MD [facility] CPT-59085 Level 3 Est. Patient 13:20:01 [employer] Alina Castaneda MD [facility] CPT-00239 Level 3 Est. Patient 09:23:35 CDT Alina Castaneda MD [facility] Procedures Code Procedure Name Date Entry Date Standard Description CPT-69251 Administration single or combination vaccine inc oral 11 :49:51 CDT CPT-29420 Pneumovax 11:49:51 CDT CPT-14666 Ribs unilateral 2V 12:37:22 [employer] CPT-51330 Chest 2V Frontal and Lat 17:15:26 CDT CPT-78240 Abx/Therapy Injection 18:54:02 CDT CPT-J0696 Rocephin 1000 mg (Ceftriaxone) 16:00:32 CDT CPT-92764 Chest 2V Frontal and Lat 15:26:45 CDT CPT-89510 Chest 2V Frontal and Lat 10:23:27 CDT CPT-10831 Venipuncture Draw Fee 10:11:00 CDT CPT-71191 Administration single or combination vaccine inc oral 11 :56:38 CDT CPT-64214 Influenza split virus > age 3 11:56:38 CDT CPT-55555 Venipuncture Draw Fee 08:49:54 [employer] CPT-31285 EKG Trac and Interp 17:54:19 [employer] WORKER
--- OUTSIDE RECORDS SUMMARY | 2018-07-02 21:06 | XMS REPORT | Clinical Summary ---
[...] by mouth nightly, for pain MORPHINE SULFATE [id number] Active Alina Castaneda MD PhD Active LATUDA 80 MG TABS 1 tab by mouth every evening LURASIDONE HCL 14066173985 Active Alina Castaneda MD PhD Active UROXATRAL 10 MG [id number] Take 1 tablet by mouth daily ALFUZOSIN HCL 68721421692 No Longer Active Alina Castaneda MD PhD Active THIOTHIXENE 5 MG CAPS by mouth twice a day THIOTHIXENE 16763008201 No Longer Active Alina Castaneda MD PhD Active ZYPREXA 7.5 MG TABS 1 at HS OLANZAPINE 39684190618 No Longer Active Alina Castaneda MD PhD Active HUMALOG 100 UNIT/ML SOLN Take 20 units with breakfast, 10u with lunch and suppetr. INSULIN LISPRO (HUMAN) 40128802744 Active Maliheh Ziglari [employer] Active LEVEMIR 100 UNIT/ML SOLN Take 70 u at 7-8pm INSULIN DETEMIR 56535653997 Active Maliheh Ziglari SHIP PILOT Active BD INSULIN SYRINGE 28G X 1/2" 1 ML MISC 1 four times per day INSULIN SYRINGE-NEEDLE U-100 96853904994 Active Maliheh Ziglari SHIP [employer]ILOT Active CYCLOBENZAPRINE HCL 10 MG TABS 1 tablet by mouth three times daily, scheduled CYCLOBENZAPRINE HCL 91242532857 Active Alina Castaneda MD PhD Active TOLTERODINE TARTRATE 2 MG TABS 1 pill twice daily, for bladder TOLTERODINE TARTRATE 57301997092 Active Alina Castaneda MD PhD Active DETROL LA 4 MG [id number] Take 1 tablet by mouth daily TOLTERODINE TARTRATE 84263516059 No Longer Active Alina Castaneda MD PhD Active HYDROCODONE-ACETAMINOPHEN 5-325 MG TABS 2 tabs by mouth three times daily as needed for pain HYDROCODONE-ACETAMINOPHEN 31974535707 Active Alina Castaneda MD PhD Active TERESE CONTOUR TEST STRP monitor blood sugars 3x/day GLUCOSE BLOOD 76320957480 No Longer Active Alina Castaneda MD PhD Active EQL TRUETEST TEST STRP Test blood sugar TID GLUCOSE BLOOD 45723656045 No Longer Active Alina Castaneda MD PhD Active FLUTICASONE PROPIONATE 50 MCG/ACT SUSP 2 sprays each nostril qDay x 30 days FLUTICASONE PROPIONATE 16248432948 No Longer Active Alina Castaneda MD PhD Active IBUPROFEN 200 MG TABS 1 Q 6 hr. PRN IBUPROFEN 55583790568 No Longer Active Alina Castaneda MD PhD Active NIACIN ER 500 MG CR-TABS 4 qHS (for triglycerides) NIACIN 28745020410 No Longer Active Alina Castaneda MD PhD Active TRUETEST TEST STRP check sugars 4x/day GLUCOSE BLOOD 56739518307 Active Alina Castaneda MD PhD Active ALFUZOSIN HCL ER 10 MG [id number] 1 tablet daily ALFUZOSIN HCL 18277759111 Active Vanessa Hickey MD Active CLONAZEPAM 1 MG TABS 1 pill by mouth three times daily CLONAZEPAM 95687219251 Active Alina Castaneda MD PhD Active LOVAZA 1 GM CAPS 4 daily (for triglycerides) [id number] ETHYL ESTERS 92907806547 Active Alina Castaneda MD PhD Active SAPHRIS 5 MG SUBL by mouth twice a day ASENAPINE MALEATE 48047155473 No Longer Active Maljohn Mackenzieglari SHIP PILOT Active ACETAMINOPHEN 500 MG TABS 2 Q 6 hr. PRN ACETAMINOPHEN 34315404744 No Longer Active Maliheh Ziglari SH[employer] Active VERAPAMIL HCL ER 120 MG [id number]-CSB 1 pill by mouth twice a day, for headache prevention/control VERAPAMIL HCL 41677536130 Active Alina Castaneda MD PhD Active ORPHENADRINE CITRATE ER 100 MG [id number] 1 every 12 hr. as needed ORPHENADRINE CITRATE 24988833654 No Longer Active Alina Castaneda MD PhD Active NIACIN CR 500 MG CR-TABS 2 qHS NIACIN 31953988262 No Longer Active Alina Castaneda MD PhD Active AMOXICILLIN 500 MG CAPS 2 po BID x 10 days AMOXICILLIN 80943306046 No Longer Active Alina Castaneda MD PhD Active HYDROCODONE-ACETAMINOPHEN 7.5-325 MG TABS 1 four times a day as needed for pain HYDROCODONE-ACETAMINOPHEN 19594182983 No Longer Active Alina Castaneda MD PhD Active METFORMIN HCL ER 500 MG [id number]-NQU Take three tablets by mouth everyday METFORMIN HCL 33498985666 Active Alina Castaneda MD PhD Active DOXEPIN HCL 10 MG CAPS Take 1 tablet by mouth daily DOXEPIN HCL 67228096933 No Longer Active Salina Han A Active NAVANE 10 MG CAPS 1/2 tablet twice a day THIOTHIXENE No Longer Active Salina Han [facility] Active CYCLOBENZAPRINE HCL 10 MG TABS 1/2 tablet by mouth every 8 hours as needed for muscle spasms CYCLOBENZAPRINE HCL 33954796385 No Longer Active Alina Castaneda MD PhD Active BACTROBAN 2 % CREAM apply to ear and nose twice daily MUPIROCIN CALCIUM 69468633300 No Longer Active Alina Castaneda MD PhD Active HYDROCODONE-ACETAMINOPHEN 5-325 MG TABS take one tablet by mouth every four hours as needed for pain HYDROCODONE-ACETAMINOPHEN 67736334734 No Longer Active Alina Castaneda MD PhD Active ZOLPIDEM TARTRATE 10 MG TABS take at bedtime ZOLPIDEM TARTRATE 99560147595 Active Alina Castaneda MD PhD Active ZYPREXA 5 MG TABS take one tablet by mouth every evening OLANZAPINE 67077103340 No Longer Active Alina Castaneda MD PhD Active ALBUTEROL SULFATE 0.083 % NEBU SOLN one vial per nebulizer TID and PRN cough/ soa ALBUTEROL SULFATE 75836031667 No Longer Active Alina Castaneda MD PhD Active GUAIFENESIN 600 MG WO57O-EIH 1 tablet by mouth twice daily if needed for cough GUAIFENESIN 49945420094 No Longer Active Marvel MARROQUIN Active AZITHROMYCIN 500 MG SOLR 1 po q day AZITHROMYCIN 35338225479 No Longer Active Alina Castaneda MD PhD Active METOPROLOL SUCCINATE 100 MG [id number]-FQO 1 by mouth daily for blood pressure METOPROLOL SUCCINATE 98008601671 Active Alina Castaneda MD PhD Active PROMETHAZINE-CODEINE 6.25-10 MG/5ML SYRP 1 tsp po q 6 hours prn cough PROMETHAZINE-CODEINE 98408758767 No Longer Active Alina Castaenda MD PhD Active CEFDINIR 300 MG CAPS by mouth twice a day CEFDINIR 98133675811 No Longer Active Alina Castaneda MD PhD Active METFORMIN HCL 500 MG EJ67K-OHL Take 3 tablets by mouth everyday METFORMIN HCL 98601147339 No Longer Active Alina Castaneda MD PhD Active LEVEMIR 100 UNIT/ML SOLN 90 units SQ qHS INSULIN DETEMIR 25243377968 No Longer Active Marvel MARROQUIN Active TOPROL XL 100 MG [id number]-SJX 1 @ HS METOPROLOL SUCCINATE 21455245335 No Longer Active Marvel MARROQUIN Active ALLOPURINOL 300 MG TABS Take one by mouth daily ALLOPURINOL 73551448163 Active Alina Castaneda MD PhD Active ZYPREXA 10 MG TABS Take one by mouth daily OLANZAPINE 87974747176 No Longer Active Alina Castaneda MD PhD Active NOVOLOG 100 UNIT/ML SOLN 40 units with every meal INSULIN ASPART 90034632676 No Longer Active Alina Castaneda MD PhD Active VERAPAMIL HCL CR 120 MG TAB CR 1 qPM VERAPAMIL HCL 86609974776 No Longer Active Salina Han [facility] Active ZYPREXA 15 MG TABS Take 1 tablet by mouth daily OLANZAPINE 78568151946 No Longer Active Marvel MARROQUIN Active LISINOPRIL 20 MG TABS 1 BID LISINOPRIL 48141181580 Active Alina Castaneda MD PhD Active ALBUTEROL SULFATE (2.5 MG/3ML) 0.083% NEBU 1 neb tid and prn cough ALBUTEROL SULFATE 71035179389 No Longer Active Alina Castaneda MD PhD Active FLUVOXAMINE MALEATE 100 MG TABS Take one (1) tablet by mouth am, 05/25 at noon, 1 pm FLUVOXAMINE MALEATE 43769669597 Active Alina Castaneda MD PhD Active TRAVATAN Z 0.004 % SOLN 1 gtt each eye daily TRAVOPROST 57295330959 Active CRYSTAL Suarez Active LANTUS 100 UNIT/ML SOLN 60 units sq q hs INSULIN GLARGINE 48104310591 No Longer Active CRYSTAL Suarez Active ALBUTEROL SULFATE (2.5 MG/3ML) 0.083% NEBU 1 neb tid and prn cough ALBUTEROL SULFATE (2.5 MG/3ML) 0.083% NEBU 730528 ALBUTEROL SULFATE Inactive ZYPREXA 15 MG TABS Take 1 tablet by mouth daily ZYPREXA 15 MG TABS 975952 OLANZAPINE Inactive VERAPAMIL HCL CR 120 MG TAB CR 1 qPM VERAPAMIL HCL CR 120 MG TAB CR VERAPAMIL HCL Inactive ZYPREXA 10 MG TABS Take one by mouth daily ZYPREXA 10 MG TABS 390013 OLANZAPINE Inactive TOPROL XL 100 MG [id number] 1 @ HS TOPROL XL 100 MG [id number]-GND METOPROLOL SUCCINATE Inactive LEVEMIR 100 UNIT/ML SOLN 90 units SQ qHS LEVEMIR 100 UNIT/ML SOLN INSULIN DETEMIR Inactive PROMETHAZINE-CODEINE 6.25-10 MG/5ML SYRP 1 tsp po q 6 hours prn cough PROMETHAZINE-CODEINE 6.25-10 MG/5ML SYRP 875184 PROMETHAZINE- CODEINE Inactive GUAIFENESIN 600 MG MY41D-ZHU 1 tablet by mouth twice daily if needed for cough GUAIFENESIN 600 MG [id number] GUAIFENESIN Inactive ALBUTEROL SULFATE 0.083 % NEBU SOLN one vial per nebulizer TID and PRN cough/ soa ALBUTEROL SULFATE 0.083 % [facility] 860563 ALBUTEROL SULFATE Inactive ZYPREXA 5 MG TABS take one tablet by mouth every evening ZYPREXA 5 MG TABS 379062 OLANZAPINE Inactive HYDROCODONE-ACETAMINOPHEN 5-325 MG TABS take one tablet by mouth every four hours as needed for pain HYDROCODONE-ACETAMINOPHEN 5-325 MG TABS 689308 HYDROCODONE-ACETAMINOPHEN Inactive BACTROBAN 2 % CREAM apply to ear and nose twice daily BACTROBAN 2 % CREAM 854253 MUPIROCIN CALCIUM Inactive CYCLOBENZAPRINE HCL 10 MG TABS 1/2 tablet by mouth every 8 hours as needed for muscle spasms CYCLOBENZAPRINE HCL 10 MG TABS 506687 CYCLOBENZAPRINE HCL Inactive NAVANE 10 MG CAPS 1/2 tablet twice a day NAVANE 10 MG CAPS THIOTHIXENE Inactive DOXEPIN HCL 10 MG CAPS Take 1 tablet by mouth daily DOXEPIN HCL 10 MG CAPS 7238848 DOXEPIN HCL Inactive HYDROCODONE-ACETAMINOPHEN 7.5-325 MG TABS 1 four times a day as needed for pain HYDROCODONE-ACETAMINOPHEN 7.5-325 MG TABS 996015 HYDROCODONE-ACETAMINOPHEN Inactive NIACIN CR 500 MG CR-TABS 2 qHS NIACIN CR 500 MG CR- TABS NIACIN Inactive ORPHENADRINE CITRATE ER 100 MG [id number] 1 every 12 hr. as needed ORPHENADRINE CITRATE ER 100 MG GV88R-LHW ORPHENADRINE CITRATE Inactive ACETAMINOPHEN 500 MG TABS 2 Q 6 hr. PRN ACETAMINOPHEN 500 MG TABS 008946 ACETAMINOPHEN Inactive SAPHRIS 5 MG SUBL by mouth twice a day SAPHRIS 5 MG SUBL ASENAPINE MALEATE Inactive NIACIN ER 500 MG CR-TABS 4 qHS (for triglycerides) NIACIN ER 500 MG CR-TABS NIACIN Inactive IBUPROFEN 200 MG TABS 1 Q 6 hr. PRN IBUPROFEN 200 MG TABS 307932 IBUPROFEN Inactive FLUTICASONE PROPIONATE 50 MCG/ACT SUSP 2 sprays each nostril qDay x 30 days FLUTICASONE PROPIONATE 50 MCG/ACT SUSP 922016 FLUTICASONE PROPIONATE Inactive EQL TRUETEST TEST STRP Test blood sugar TID EQL TRUETEST TEST STRP GLUCOSE BLOOD Inactive TERESE CONTOUR TEST STRP monitor blood sugars 3x/day TERESE CONTOUR TEST STRP GLUCOSE BLOOD Inactive DETROL LA 4 MG [id number]-VWH Take 1 tablet by mouth daily DETROL LA 4 MG FW88O-SMZ TOLTERODINE TARTRATE Inactive ZYPREXA 7.5 MG TABS 1 at HS ZYPREXA 7.5 MG TABS 290396 OLANZAPINE Inactive THIOTHIXENE 5 MG CAPS by mouth twice a day THIOTHIXENE 5 MG CAPS 796331 THIOTHIXENE Inactive UROXATRAL 10 MG IX11E-NTP Take 1 tablet by mouth daily UROXATRAL 10 MG [id number] ALFUZOSIN HCL Inactive CEFDINIR 300 MG CAPS by mouth twice a day CEFDINIR 300 MG CAPS 033292 CEFDINIR Inactive AZITHROMYCIN 500 MG SOLR 1 po q day AZITHROMYCIN 500 MG SOLR 369351 AZITHROMYCIN Inactive AMOXICILLIN 500 MG CAPS 2 po BID x 10 days AMOXICILLIN 500 MG CAPS 229133 AMOXICILLIN Inactive Immunizations Vaccine Administration Date Value [...] Fluvirin, Fluarix, Agriflu(>=18 yo)) Fluzone (>3 yrs.) [[id number]] Influenza, seasonal, injectable pneumococcal immunization administered Pneumovax [...] HGBA1C - Chemistry sodium, serum 130 mmol/L 563-320 9779/06/09 potassium, serum 4.0 mmol/L 3.5-5.2 chloride, serum [...] 6.0 mg/dL 2.6-7.2 sodium, serum 130 mmol/L 872-703 8400/05/01 potassium, serum 5.2 mmol/L 3.5-5.2 chloride, serum [...] 0.40 mg/dL 0.00-1.00 cholesterol, serum 151 mg/dL 018-637 0134/05/01 triglyceride, serum, fasting 356 mg/dL 30-200 HDL [...] HGBA1C - Chemistry sodium, serum 126 mmol/L 823-802 3511/02/26 potassium, serum 4.8 mmol/L 3.5-5.2 chloride, serum [...] mg/dL Encounters Code Encounter Date Provider Facility CPT-29596 Level 3 Est. [facility] CPT-99873 Level 3 Est. Patient 12:02:49 CDT Alina Castaneda MD [facility]-17229 Level 3 Est. Patient 19:17:33 CDT Alina Castaneda MD PhD [facility] CPT-46135 Level 3 Est. Patient 13:19:10 CDT [facility] CPT-08456 Level 3 Est. Patient 08:20:05 CDT Alina Castaneda MD PhD [facility]-71290 Level 3 Est. Patient 15:17:18 CDT Alina Castaneda MD PhD [facility]47561 Level 3 Est. Patient 14:25:36 [employer] [facility] CPT-48211 Level 3 Est. Patient 10:09:15 [employer] Marvel [facility]-07005 Level 3 Est. Patient 21:28:43 CDT Alina Castaneda MD [facility]-02375 Level 3 Est. Patient 15:20:11 [facility] Level 4 Est. Patient 19:08:12 CDT Alina Castaneda MD [facility]-26546 Level 3 Est. Patient 15:06:39 CDT Marvel [facility]-79785 Level 4 Est. Patient 17:48:15 CDT Alina Castaneda MD [facility]-24096 Level 3 Est. Patient 14:53:49 CDT Alina Castaneda MD [facility]-91161 Level 3 Est. Patient 09:35:16 CDT Alina Castaneda MD [facility]-58018 Level 3 Est. Patient 12:23:22 CDT Alina Castaneda MD [facility]-16785 Level 3 Est. Patient 16:19:15 CDT Alina Castaneda MD [facility]-17192 Level 3 Est. Patient 21:39:56 [employer] Alina Castaneda MD [facility]-05511 Level 4 Est. Patient 14:12:56 [employer] Alina Castaneda MD [facility]-51573 Level 2 Est. Patient 15:34:57 [employer] Alina Castaneda MD [facility]-48088 Level 3 Est. Patient 12:17:04 [employer] Alina Castaneda MD [facility]-26294 Level 3 Est. Patient 09:18:18 [employer] [facility]-39663 Level 2 Est. Patient 21:50:24 CDT Alina Castaneda MD [facility]-39062 Level 3 Est. Patient 09:17:28 CDT Marvel [facility]-24787 Level 4 Est. Patient 18:54:02 CDT Alina Castaneda MD [facility]-21941 Level 3 Est. Patient 10:47:10 CDT Alina Castaneda MD [facility]09419 Level 3 Est. Patient 09:22:20 CDT Marvel [facility]-48851 Level 3 Est. Patient 16:39:43 [facility]-66109 Level 3 Est. Patient 16:05:16 CDT Alina Castaneda MD PhD [facility]-86364 Level 3 Est. Patient 00:29:15 CDT Alina Castaneda MD [facility]-50193 Level 3 Est. Patient 10:49:22 [employer] Marvel [facility]-08330 Level 3 Est. Patient 21:30:19 [employer] Alina Castaneda MD [facility]-00160 Level 4 Est. Patient 17:04:11 [employer] Marvel [facility]-73792 Level 3 Est. Patient 15:34:11 [employer] Marvel [facility]-61533 Level 2 Est. Patient 12:51:58 [employer] Alina Castaneda MD [facility]22005 Level 3 Est. Patient 13:20:01 [employer] Alina Castaneda MD PhD [facility] CPT-77450 Level 3 Est. Patient 09:23:35 CDT Alina Castaneda MD PhD [facility] Procedures Code Procedure Name Date Entry Date Standard Description CPT-61608 Administration single or combination vaccine inc oral 11 :49:51 CDT CPT-40029 Pneumovax 11:49:51 CDT CPT-43865 Ribs unilateral 2V 12:37:22 [employer] CPT-84436 Chest 2V Frontal and Lat 17:15:26 CDT CPT-64083 Abx/Therapy Injection 18:54:02 CDT CPT-J0696 Rocephin 1000 mg (Ceftriaxone) 16:00:32 CDT CPT-01188 Chest 2V Frontal and Lat 15:26:45 CDT CPT-51933 Chest 2V Frontal and Lat 10:23:27 CDT CPT-59187 Venipuncture Draw Fee 10:11:00 CDT CPT-21055 Administration single or combination vaccine inc oral 11 :56:38 CDT CPT-70750 Influenza split virus > age 3 11:56:38 CDT CPT-36338 Venipuncture Draw Fee 08:49:54 [employer] CPT-80195 EKG Trac and Interp 17:54:19 [employer]
--- OUTSIDE RECORDS SUMMARY | 2018-07-02 21:07 | XMS REPORT | Clinical Summary ---
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 Inactive lAina Castaneda MD PhD SPECIAL SCREENING FOR MALIGNANT NEOPLASM OF PROSTATE ICD-V76.44 Inactive Alina Castaneda MD PhD Medication List Medication Instructions Start Date Stop Date Generic Name NDC Status Provider Patient Instruction BD INSULIN SYRINGE 28G X 1/2" 1 ML MISC 1 four times per day INSULIN SYRINGE-NEEDLE U-100 60733329842 Active Alina Castaneda MD PhD Active CYCLOBENZAPRINE HCL 10 MG TABS 1 tablet by mouth three times daily, scheduled CYCLOBENZAPRINE HCL 17114215459 Active Alina Castaneda MD PhD Active HUMALOG 100 UNIT/ML SOLN take 40u with each meal INSULIN LISPRO (HUMAN) 25875311670 Active Alina Castaneda MD PhD Active TOLTERODINE TARTRATE 2 MG TABS 1 pill twice daily, for bladder TOLTERODINE TARTRATE 28753532424 Active Alina Castaneda MD PhD Active DETROL LA 4 MG [id number] Take 1 tablet by mouth daily TOLTERODINE TARTRATE 16463943806 No Longer Active Alina Castaneda MD PhD Active HYDROCODONE-ACETAMINOPHEN 5-325 MG TABS 2 tabs by mouth three times daily as needed for pain HYDROCODONE-ACETAMINOPHEN 92648973569 Active Alina Castaneda MD PhD Active TERESE CONTOUR TEST STRP monitor blood sugars 3x/day GLUCOSE BLOOD 77142760217 No Longer Active Alina Castaneda MD PhD Active EQL TRUETEST TEST STRP Test blood sugar TID GLUCOSE BLOOD 45085390399 No Longer Active Alina Castaneda MD PhD Active FLUTICASONE PROPIONATE 50 MCG/ACT SUSP 2 sprays each nostril qDay x 30 days FLUTICASONE PROPIONATE 64549723591 No Longer Active Alina Castaneda MD PhD Active IBUPROFEN 200 MG TABS 1 Q 6 hr. PRN IBUPROFEN 87305417549 No Longer Active Alina Castaneda MD PhD Active NIACIN ER 500 MG CR-TABS 4 qHS (for triglycerides) NIACIN 94094238870 No Longer Active Alina Castaneda MD PhD Active LEVEMIR 100 UNIT/ML SOLN Take 100u at 7-8pm INSULIN DETEMIR 19399157698 Active Alina Castaneda MD PhD Active TRUETEST TEST STRP check sugars 4x/day GLUCOSE BLOOD 45395838652 Active Alina Castaneda MD PhD Active ALFUZOSIN HCL ER 10 MG [id number]-GFQ 1 tablet daily ALFUZOSIN HCL 90013658519 Active Vanessa Hickey MD Active CLONAZEPAM 1 MG TABS 1 pill by mouth three times daily CLONAZEPAM 88509804910 Active Alina Castaneda MD PhD Active LOVAZA 1 GM CAPS 4 daily (for triglycerides) [id number]-5-[id number] ETHYL ESTERS 26080871175 Active Alina Castaneda MD PhD Active SAPHRIS 5 MG SUBL by mouth twice a day ASENAPINE MALEATE 30354589085 No Longer Active Maliheh Gurdeepglestela [facility] Active ACETAMINOPHEN 500 MG TABS 2 Q 6 hr. PRN ACETAMINOPHEN 22180245810 No Longer Active Marvel MENDOZAP Active VERAPAMIL HCL ER 120 MG [id number] 1 pill by mouth twice a day, for headache prevention/control VERAPAMIL HCL 52164210950 Active Alina Castaneda MD PhD Active ORPHENADRINE CITRATE ER 100 MG MI05X-EBJ 1 every 12 hr. as needed ORPHENADRINE CITRATE 73759782072 No Longer Active Alina Castaneda MD PhD Active NIACIN CR 500 MG CR-TABS 2 qHS NIACIN 13099402487 No Longer Active Alina Castaneda MD PhD Active AMOXICILLIN 500 MG CAPS 2 po BID x 10 days AMOXICILLIN 19726089832 No Longer Active Alina Castaneda MD PhD Active ZYPREXA 7.5 MG TABS 1 at HS OLANZAPINE 70251084473 Active Alina Castaneda MD PhD Active THIOTHIXENE 5 MG CAPS by mouth twice a day THIOTHIXENE 16989052440 Active Alina Castaneda MD PhD Active HYDROCODONE-ACETAMINOPHEN 7.5-325 MG TABS 1 four times a day as needed for pain HYDROCODONE-ACETAMINOPHEN 77999296166 No Longer Active Alina Castaneda MD PhD Active METFORMIN HCL ER 500 MG [id number] Take three tablets by mouth everyday METFORMIN HCL 54018020846 Active Marvel MENDOZAP Active DOXEPIN HCL 10 MG CAPS Take 1 tablet by mouth daily DOXEPIN HCL 30855627158 No Longer Active Salina Han [facility] Active NAVANE 10 MG CAPS 1/2 tablet twice a day THIOTHIXENE No Longer Active Salina ROBBINS Active CYCLOBENZAPRINE HCL 10 MG TABS 1/2 tablet by mouth every 8 hours as needed for muscle spasms CYCLOBENZAPRINE HCL 48292457622 No Longer Active Alina Castaneda MD PhD Active BACTROBAN 2 % CREAM apply to ear and nose twice daily MUPIROCIN CALCIUM 29905761988 No Longer Active Alina Castaneda MD PhD Active HYDROCODONE-ACETAMINOPHEN 5-325 MG TABS take one tablet by mouth every four hours as needed for pain HYDROCODONE-ACETAMINOPHEN 31110755269 No Longer Active Alina Castaneda MD PhD Active ZOLPIDEM TARTRATE 10 MG TABS take at bedtime ZOLPIDEM TARTRATE 07181496478 Active Alina Castaneda MD PhD Active ZYPREXA 5 MG TABS take one tablet by mouth every evening OLANZAPINE 03746175478 No Longer Active Alina Castaneda MD PhD Active ALBUTEROL SULFATE 0.083 % NEBU SOLN one vial per nebulizer TID and PRN cough/ soa ALBUTEROL SULFATE 80699230580 No Longer Active Alina Castaneda MD PhD Active GUAIFENESIN 600 MG [id number]-EWZ 1 tablet by mouth twice daily if needed for cough GUAIFENESIN 19183375400 No Longer Active Marvel MARROQUIN Active AZITHROMYCIN 500 MG SOLR 1 po q day AZITHROMYCIN 20977935583 No Longer Active Alina Castaneda MD PhD Active METOPROLOL SUCCINATE 100 MG AZ20P-EPR 1 by mouth daily for blood pressure METOPROLOL SUCCINATE 46112293171 Active Alina Castaneda MD PhD Active PROMETHAZINE-CODEINE 6.25-10 MG/5ML SYRP 1 tsp po q 6 hours prn cough PROMETHAZINE-CODEINE 34240472800 No Longer Active Alina Castaneda MD PhD Active CEFDINIR 300 MG CAPS by mouth twice a day CEFDINIR 70678919839 No Longer Active Alina Castaneda MD PhD Active METFORMIN HCL 500 MG [id number] Take 3 tablets by mouth everyday METFORMIN HCL 62906169453 No Longer Active Alina Castaneda MD PhD Active LEVEMIR 100 UNIT/ML SOLN 90 units SQ qHS INSULIN DETEMIR 31327050457 No Longer Active Marvel MARROQUIN Active TOPROL XL 100 MG [id number]-DQV 1 @ HS METOPROLOL SUCCINATE 07357443920 No Longer Active Marvel MARROQUIN Active ALLOPURINOL 300 MG TABS Take one by mouth daily ALLOPURINOL 70184257296 Active Alina Castaneda MD PhD Active ZYPREXA 10 MG TABS Take one by mouth daily OLANZAPINE 48122573440 No Longer Active Alina Castaneda MD PhD Active NOVOLOG 100 UNIT/ML SOLN 40 units with every meal INSULIN ASPART 27181527811 No Longer Active Alina Castaneda MD PhD Active VERAPAMIL HCL CR 120 MG TAB CR 1 qPM VERAPAMIL HCL 65368251578 No Longer Active Salina Han A Active ZYPREXA 15 MG TABS Take 1 tablet by mouth daily OLANZAPINE 46648682071 No Longer Active Marvel MARROQUIN Active LISINOPRIL 20 MG TABS 1 BID LISINOPRIL 10491955937 Active Mao Rodriguez MD Active ALBUTEROL SULFATE (2.5 MG/3ML) 0.083% NEBU 1 neb tid and prn cough ALBUTEROL SULFATE 12530336048 No Longer Active Alina Castaneda MD PhD Active FLUVOXAMINE MALEATE 100 MG TABS Take one (1) tablet by mouth am, 1/2 at noon, 1 pm FLUVOXAMINE MALEATE 67177908038 Active Alina Castaneda MD PhD Active TRAVATAN Z 0.004 % SOLN 1 gtt each eye daily TRAVOPROST 19597814349 Active Alina Mendez Active LANTUS 100 UNIT/ML SOLN 60 units sq q hs INSULIN GLARGINE 05288690557 No Longer Active Alina Mendez Active UROXATRAL 10 MG [id number] Take 1 tablet by mouth daily ALFUZOSIN HCL 84706281021 Active Tanya MARROQUIN Active ALBUTEROL SULFATE (2.5 MG/3ML) 0.083% NEBU 1 neb tid and prn cough ALBUTEROL SULFATE (2.5 MG/3ML) 0.083% NEBU 187605 ALBUTEROL SULFATE Inactive ZYPREXA 15 MG TABS Take 1 tablet by mouth daily ZYPREXA 15 MG TABS 383183 OLANZAPINE Inactive VERAPAMIL HCL CR 120 MG TAB CR 1 qPM VERAPAMIL HCL CR 120 MG TAB CR VERAPAMIL HCL Inactive ZYPREXA 10 MG TABS Take one by mouth daily ZYPREXA 10 MG TABS 388638 OLANZAPINE Inactive TOPROL XL 100 MG [id number] 1 @ HS TOPROL XL 100 MG RX64O-BZD METOPROLOL SUCCINATE Inactive LEVEMIR 100 UNIT/ML SOLN 90 units SQ qHS LEVEMIR 100 UNIT/ML SOLN INSULIN DETEMIR Inactive PROMETHAZINE-CODEINE 6.25-10 MG/5ML SYRP 1 tsp po q 6 hours prn cough PROMETHAZINE-CODEINE 6.25-10 MG/5ML SYRP 196594 PROMETHAZINE- CODEINE Inactive GUAIFENESIN 600 MG [id number]-HXF 1 tablet by mouth twice daily if needed for cough GUAIFENESIN 600 MG [id number]-WQJ GUAIFENESIN Inactive ALBUTEROL SULFATE 0.083 % NEBU SOLN one vial per nebulizer TID and PRN cough/ soa ALBUTEROL SULFATE 0.083 % NEBU SOLN 437020 ALBUTEROL SULFATE Inactive ZYPREXA 5 MG TABS take one tablet by mouth every evening ZYPREXA 5 MG TABS 848588 OLANZAPINE Inactive HYDROCODONE-ACETAMINOPHEN 5-325 MG TABS take one tablet by mouth every four hours as needed for pain HYDROCODONE-ACETAMINOPHEN 5-325 MG TABS 484026 HYDROCODONE-ACETAMINOPHEN Inactive BACTROBAN 2 % CREAM apply to ear and nose twice daily BACTROBAN 2 % CREAM 430988 MUPIROCIN CALCIUM Inactive CYCLOBENZAPRINE HCL 10 MG TABS 1/2 tablet by mouth every 8 hours as needed for muscle spasms CYCLOBENZAPRINE HCL 10 MG TABS 125796 CYCLOBENZAPRINE HCL Inactive NAVANE 10 MG CAPS 1/2 tablet twice a day NAVANE 10 MG CAPS THIOTHIXENE Inactive DOXEPIN HCL 10 MG CAPS Take 1 tablet by mouth daily DOXEPIN HCL 10 MG CAPS 1248661 DOXEPIN HCL Inactive HYDROCODONE-ACETAMINOPHEN 7.5-325 MG TABS 1 four times a day as needed for pain HYDROCODONE-ACETAMINOPHEN 7.5-325 MG TABS 697911 HYDROCODONE-ACETAMINOPHEN Inactive NIACIN CR 500 MG CR-TABS 2 qHS NIACIN CR 500 MG CR- TABS NIACIN Inactive ORPHENADRINE CITRATE ER 100 MG [id number] 1 every 12 hr. as needed ORPHENADRINE CITRATE ER 100 MG SP33O-MKJ ORPHENADRINE CITRATE Inactive ACETAMINOPHEN 500 MG TABS 2 Q 6 hr. PRN ACETAMINOPHEN 500 MG TABS 473908 ACETAMINOPHEN Inactive SAPHRIS 5 MG SUBL by mouth twice a day SAPHRIS 5 MG SUBL ASENAPINE MALEATE Inactive NIACIN ER 500 MG CR-TABS 4 qHS (for triglycerides) NIACIN ER 500 MG CR-TABS NIACIN Inactive IBUPROFEN 200 MG TABS 1 Q 6 hr. PRN IBUPROFEN 200 MG TABS 276860 IBUPROFEN Inactive FLUTICASONE PROPIONATE 50 MCG/ACT SUSP 2 sprays each nostril qDay x 30 days FLUTICASONE PROPIONATE 50 MCG/ACT SUSP 239869 FLUTICASONE PROPIONATE Inactive EQL TRUETEST TEST STRP Test blood sugar TID EQL TRUETEST TEST STRP GLUCOSE BLOOD Inactive TERESE CONTOUR TEST STRP monitor blood sugars 3x/day TERESE CONTOUR TEST STRP GLUCOSE BLOOD Inactive DETROL LA 4 MG GA98Q-FNO Take 1 tablet by mouth daily DETROL LA 4 MG [id number]-LMT TOLTERODINE TARTRATE Inactive CEFDINIR 300 MG CAPS by mouth twice a day CEFDINIR 300 MG CAPS 710243 CEFDINIR Inactive AZITHROMYCIN 500 MG SOLR 1 po q day AZITHROMYCIN 500 MG SOLR 149883 AZITHROMYCIN Inactive AMOXICILLIN 500 MG CAPS 2 po BID x 10 days AMOXICILLIN 500 MG CAPS 986393 AMOXICILLIN Inactive Immunizations Vaccine Administration Date Value [...] Fluvirin, Fluarix, Agriflu(>=18 yo)) Fluzone (>3 yrs.) [[id number]] Influenza, seasonal, injectable pneumococcal immunization administered Pneumovax [...] acid - Chemistry sodium, serum 130 mmol/L 743-397 9782/05/01 potassium, serum 5.2 mmol/L 3.5-5.2 chloride, serum [...] 0.40 mg/dL 0.00-1.00 cholesterol, serum 151 mg/dL [phone]/05/01 triglyceride, serum, fasting 356 mg/dL 30-200 HDL [...] HGBA1C - Chemistry sodium, serum 126 mmol/L [phone]/02/26 potassium, serum 4.8 mmol/L 3.5-5.2 chloride, serum [...] DIRECT - Chemistry cholesterol, serum 158 mg/dL [phone]/07/11 triglyceride, serum, fasting 489 mg/dL 30-200 HDL [...] mg/dL Encounters Code Encounter Date Provider Facility CPT-49586 Level 3 Est. Patient 08:20:05 CDT Alina Castaneda MD PhD [facility] [place] 2]-34759 Level 3 Est. Patient 15:17:18 CDT Alina Castaneda MD PhD [facility] [place][note 2]-73109 Level 3 Est. Patient 14:25:36 VESSEL BUILDER [facility]-84130 Level 3 Est. Patient 10:09:15 [place]SEL [place]DER [facility] [place]66705 Level 3 Est. Patient 21:28:43 CDT Alina Castaneda MD PhD [facility] [place][note 2]-18998 Level 3 Est. Patient 15:20:11 CDT [facility] Gurdeepestela [facility] [place]-82030 Level 4 Est. Patient 19:08:12 CDT Alina Castaneda MD PhD [facility]71954 Level 3 Est. Patient 15:06:39 CDT [facility] Gurdeepestela [facility] [place]-48506 Level 4 Est. Patient 17:48:15 CDT Alina Castaneda MD [facility]-24493 Level 3 Est. Patient 14:53:49 CDT Alina Castaneda MD [facility]-73778 Level 3 Est. Patient 09:35:16 CDT Alina Castaneda MD [facility]-28441 Level 3 Est. Patient 12:23:22 CDT Alina Castaneda MD [facility]-71240 Level 3 Est. Patient 16:19:15 CDT Alina Castaneda MD [facility]-35722 Level 3 Est. Patient 21:39:56 VESSEL BUILDER Alina Castaneda MD [facility]-05449 Level 4 Est. Patient 14:12:56 VESSEL BUILDER Alina Castaneda MD [facility]-28361 Level 2 Est. Patient 15:34:57 VESSEL BUILDER Alina Castaneda MD [facility]-46266 Level 3 Est. Patient 12:17:04 VESSEL BUILDER Alina Castaneda MD [facility]-22508 Level 3 Est. Patient 09:18:18 VESSEL BUILDER Marvel [facility] [place]-60766 Level 2 Est. Patient 21:50:24 CDT Alina Castaneda MD [facility]-68655 Level 3 Est. Patient 09:17:28 CDT Marvel [facility] [place]-59857 Level 4 Est. Patient 18:54:02 CDT Alina Castaneda MD [facility]-60341 Level 3 Est. Patient 10:47:10 CDT Alina Castaneda MD [facility]-36944 Level 3 Est. Patient 09:22:20 [facility] Level 3 Est. [facility]:39[facility] [place] CPT-50137 Level 3 Est. Patient 16:05:16 CDT Alina Castaneda MD [facility] CPT-78303 Level 3 Est. Patient 00:29:15 CDT Alina Castaneda MD [facility] CPT-51628 Level 3 Est. Patient 10:49:22 VESSEL BUILDER Marvel Thurstonestela [facility] [place] CPT-52276 Level 3 Est. Patient 21:30:19 VESSEL BUILDER Alina Castaneda MD [facility] CPT-40607 Level 4 Est. Patient 17:04:11 VESSEL BUILDER [facility]44 Level 3 Est. Patient 15:34:11 [place]SEL [place]DER [facility] [place]92097 Level 2 Est. Patient 12:51:58 VESSEL BUILDER Alina Castaneda MD [facility] CPT-52897 Level 3 Est. Patient 13:20:01 VESSEL BUILDER Alina Castaneda MD [facility] CPT-37160 Level 3 Est. Patient 09:23:35 CDT Alina Castaneda MD [facility] Procedures Code Procedure Name Date Entry Date Standard Description CPT-73867 Administration single or combination vaccine inc oral 11 :49:51 CDT CPT-15888 Pneumovax 11:49:51 CDT CPT-90757 Ribs unilateral 2V 12:37:22 VESSEL BUILDER CPT-87893 Chest 2V Frontal and Lat 17:15:26 CDT CPT-82174 Abx/Therapy Injection 18:54:02 CDT CPT-J0696 Rocephin 1000 mg (Ceftriaxone) 16:00:32 CDT CPT-13159 Chest 2V Frontal and Lat 15:26:45 CDT CPT-60231 Chest 2V Frontal and Lat 10:23:27 CDT CPT-13151 Venipuncture Draw Fee 10:11:00 CDT CPT-22332 Administration single or combination vaccine inc oral 11 :56:38 CDT CPT-21389 Influenza split virus > age 3 11:56:38 CDT CPT-85672 Venipuncture Draw Fee 08:49:54 VESSEL BUILDER CPT-64978 EKG Trac and Interp 17:54:19 VESSEL BUILDER
--- OUTSIDE RECORDS SUMMARY | 2018-07-02 21:08 | XMS REPORT | Clinical Summary ---
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 Active Alina Castaneda MD PhD Recurrent isolated sleep paralysis SPECIAL SCREENING FOR MALIGNANT NEOPLASM OF PROSTATE V76.44 Resolved Alina Castaneda MD PhD Screening for malignant neoplasms of prostate Hypoglycemia 251.2 Active Zaineh 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 LOPEZ Hypoglycemia, unspecified Diabetes mellitus, type II 250.00 Active Maliheh Ziglari HEALTH NAVIGATOR Diabetes mellitus without mention of complication, type [...] by mouth nightly, for pain MORPHINE SULFATE 65536255639 Active Michele Chacon MD Active LATUDA 80 MG TABS 1 tab by mouth every evening LURASIDONE HCL 28086696370 Active Alina Castaneda MD PhD Active UROXATRAL 10 MG [id number] Take 1 tablet by mouth daily ALFUZOSIN HCL 12032339748 No Longer Active Alina Castaneda MD PhD Active THIOTHIXENE 5 MG CAPS by mouth twice a day THIOTHIXENE 61483527383 No Longer Active Alina Castaneda MD PhD Active ZYPREXA 7.5 MG TABS 1 at HS OLANZAPINE 80956644986 No Longer Active Alina Castaneda MD PhD Active HUMALOG 100 UNIT/ML SOLN Take 20 units with breakfast, 10u with lunch and suppetr. INSULIN LISPRO (HUMAN) 57001779442 Active Maliheh Ziglari HEALTH NAVIGATOR Active LEVEMIR 100 UNIT/ML SOLN Take 70 u at 7-8pm INSULIN DETEMIR 94276341921 Active Maliheh Ziglari HEALTH NAVIGATOR Active BD INSULIN SYRINGE 28G X 1/2" 1 ML MISC 1 four times per day INSULIN SYRINGE-NEEDLE U-100 58368069838 Active Maliheh Ziglari HEALTH NAVIGATOR Active CYCLOBENZAPRINE HCL 10 MG TABS 1 tablet by mouth three times daily, scheduled CYCLOBENZAPRINE HCL 16213576222 Active Alina Castaneda MD PhD Active TOLTERODINE TARTRATE 2 MG TABS 1 pill twice daily, for bladder TOLTERODINE TARTRATE 35732184612 Active Alina Castaneda MD PhD Active DETROL LA 4 MG [id number]-SQK Take 1 tablet by mouth daily TOLTERODINE TARTRATE 96228407443 No Longer Active Alina Castaneda MD PhD Active HYDROCODONE-ACETAMINOPHEN 5-325 MG TABS 2 tabs by mouth three times daily as needed for pain HYDROCODONE-ACETAMINOPHEN 70583670578 Active Rhett W Ashkan DO Active TERESE CONTOUR TEST STRP monitor blood sugars 3x/day GLUCOSE BLOOD 95020005440 No Longer Active Alina Castaneda MD PhD Active EQL TRUETEST TEST STRP Test blood sugar TID GLUCOSE BLOOD 16004812582 No Longer Active Alina Castaneda MD PhD Active FLUTICASONE PROPIONATE 50 MCG/ACT SUSP 2 sprays each nostril qDay x 30 days FLUTICASONE PROPIONATE 43363054156 No Longer Active Alina Castaneda MD PhD Active IBUPROFEN 200 MG TABS 1 Q 6 hr. PRN IBUPROFEN 03531716526 No Longer Active Alina Castaneda MD PhD Active NIACIN ER 500 MG CR-TABS 4 qHS (for triglycerides) NIACIN 05712844042 No Longer Active Alina Castaneda MD PhD Active TRUETEST TEST STRP check sugars 4x/day GLUCOSE BLOOD 21209972126 Active Marvel MENDOZAP Active ALFUZOSIN HCL ER 10 MG [id number] 1 tablet daily ALFUZOSIN HCL 99665312924 Active Vanessa Hickey MD Active CLONAZEPAM 1 MG TABS 1 pill by mouth three times daily CLONAZEPAM 13148051509 Active Alina Castaneda MD PhD Active LOVAZA 1 GM CAPS 4 daily (for triglycerides) [id number] ETHYL ESTERS 76225091552 Active Alina Castaneda MD PhD Active SAPHRIS 5 MG SUBL by mouth twice a day ASENAPINE MALEATE 58055137052 No Longer Active Marvel Thurstonari HEALTH NAVIGATOR Active ACETAMINOPHEN 500 MG TABS 2 Q 6 hr. PRN ACETAMINOPHEN 62940190967 No Longer Active Marvel MENDOZAP Active VERAPAMIL HCL ER 120 MG [id number]-RYG 1 pill by mouth twice a day, for headache prevention/control VERAPAMIL HCL 77542664078 Active Alina Castaneda MD PhD Active ORPHENADRINE CITRATE ER 100 MG [id number] 1 every 12 hr. as needed ORPHENADRINE CITRATE 69772597747 No Longer Active Alina Castaneda MD PhD Active NIACIN CR 500 MG CR-TABS 2 qHS NIACIN 39123801955 No Longer Active Alina Castaneda MD PhD Active AMOXICILLIN 500 MG CAPS 2 po BID x 10 days AMOXICILLIN 17077041795 No Longer Active Alina Castaneda MD PhD Active HYDROCODONE-ACETAMINOPHEN 7.5-325 MG TABS 1 four times a day as needed for pain HYDROCODONE-ACETAMINOPHEN 98735159933 No Longer Active Alina Castaneda MD PhD Active METFORMIN HCL ER 500 MG JD67K-ZGE Take three tablets by mouth everyday METFORMIN HCL 46527045591 Active Alina Castaneda MD PhD Active DOXEPIN HCL 10 MG CAPS Take 1 tablet by mouth daily DOXEPIN HCL 70489083633 No Longer Active Salina Han [facility] Active NAVANE 10 MG CAPS 1/2 tablet twice a day THIOTHIXENE No Longer Active Salina Han [facility] Active CYCLOBENZAPRINE HCL 10 MG TABS 1/2 tablet by mouth every 8 hours as needed for muscle spasms CYCLOBENZAPRINE HCL 13591150313 No Longer Active Alina Castaneda MD PhD Active BACTROBAN 2 % CREAM apply to ear and nose twice daily MUPIROCIN CALCIUM 59266546632 No Longer Active Alina Castaneda MD PhD Active HYDROCODONE-ACETAMINOPHEN 5-325 MG TABS take one tablet by mouth every four hours as needed for pain HYDROCODONE-ACETAMINOPHEN 13446448490 No Longer Active Alina Castaneda MD PhD Active ZOLPIDEM TARTRATE 10 MG TABS take at bedtime ZOLPIDEM TARTRATE 47350758486 Active Alina Castaneda MD PhD Active ZYPREXA 5 MG TABS take one tablet by mouth every evening OLANZAPINE 55808201711 No Longer Active Alina Castaneda MD PhD Active ALBUTEROL SULFATE 0.083 % NEBU SOLN one vial per nebulizer TID and PRN cough/ soa ALBUTEROL SULFATE 78300166155 No Longer Active Alina Castaneda MD PhD Active GUAIFENESIN 600 MG YR80K-UTC 1 tablet by mouth twice daily if needed for cough GUAIFENESIN 46719626173 No Longer Active Marvel MARROQUIN Active AZITHROMYCIN 500 MG SOLR 1 po q day AZITHROMYCIN 24891942814 No Longer Active Alina Castaneda MD PhD Active METOPROLOL SUCCINATE 100 MG FE94T-MML 1 by mouth daily for blood pressure METOPROLOL SUCCINATE 19760221406 Active Alina Castaneda MD PhD Active PROMETHAZINE-CODEINE 6.25-10 MG/5ML SYRP 1 tsp po q 6 hours prn cough PROMETHAZINE-CODEINE 21314894064 No Longer Active Alina Castaneda MD PhD Active CEFDINIR 300 MG CAPS by mouth twice a day CEFDINIR 44846362575 No Longer Active Alina Castaneda MD PhD Active METFORMIN HCL 500 MG EK37B-RMF Take 3 tablets by mouth everyday METFORMIN HCL 48249741613 No Longer Active Alina Castaneda MD PhD Active LEVEMIR 100 UNIT/ML SOLN 90 units SQ qHS INSULIN DETEMIR 68971064249 No Longer Active Marvel MARROQUIN Active TOPROL XL 100 MG ZK02J-UPM 1 @ HS METOPROLOL SUCCINATE 57961865872 No Longer Active Marvel MARROQIUN Active ALLOPURINOL 300 MG TABS Take one by mouth daily ALLOPURINOL 56849381279 Active Alina Castaneda MD PhD Active ZYPREXA 10 MG TABS Take one by mouth daily OLANZAPINE 20273508208 No Longer Active Alina Castaneda MD PhD Active NOVOLOG 100 UNIT/ML SOLN 40 units with every meal INSULIN ASPART 96409859461 No Longer Active Alina Castaneda MD PhD Active VERAPAMIL HCL CR 120 MG TAB CR 1 qPM VERAPAMIL HCL 38896621288 No Longer Active Salina Han [facility] Active ZYPREXA 15 MG TABS Take 1 tablet by mouth daily OLANZAPINE 69979086942 No Longer Active Marvel Charles HEALTH NAVIGATOR Active LISINOPRIL 20 MG TABS 1 BID LISINOPRIL 80062839718 Active Alina Castaneda MD PhD Active ALBUTEROL SULFATE (2.5 MG/3ML) 0.083% NEBU 1 neb tid and prn cough ALBUTEROL SULFATE 73785415197 No Longer Active Alina Castaneda MD PhD Active FLUVOXAMINE MALEATE 100 MG TABS Take one (1) tablet by mouth am, 1/2 at noon, 1 pm FLUVOXAMINE MALEATE 19357991407 Active Alina Castaneda MD PhD Active TRAVATAN Z 0.004 % SOLN 1 gtt each eye daily TRAVOPROST 06688590724 Active CRYSTAL Suarez Active LANTUS 100 UNIT/ML SOLN 60 units sq q hs INSULIN GLARGINE 21515359113 No Longer Active CRYSTAL Suarez Active ALBUTEROL SULFATE (2.5 MG/3ML) 0.083% NEBU 1 neb tid and prn cough ALBUTEROL SULFATE (2.5 MG/3ML) 0.083% NEBU 813007 ALBUTEROL SULFATE Inactive ZYPREXA 15 MG TABS Take 1 tablet by mouth daily ZYPREXA 15 MG TABS 140917 OLANZAPINE Inactive VERAPAMIL HCL CR 120 MG TAB CR 1 qPM VERAPAMIL HCL CR 120 MG TAB CR VERAPAMIL HCL Inactive ZYPREXA 10 MG TABS Take one by mouth daily ZYPREXA 10 MG TABS 510840 OLANZAPINE Inactive TOPROL XL 100 MG HE10W-RUQ 1 @ HS TOPROL XL 100 MG SS67S-UFE METOPROLOL SUCCINATE Inactive LEVEMIR 100 UNIT/ML SOLN 90 units SQ qHS LEVEMIR 100 UNIT/ML SOLN INSULIN DETEMIR Inactive PROMETHAZINE-CODEINE 6.25-10 MG/5ML SYRP 1 tsp po q 6 hours prn cough PROMETHAZINE-CODEINE 6.25-10 MG/5ML SYRP 272829 PROMETHAZINE- CODEINE Inactive GUAIFENESIN 600 MG PM67I-POY 1 tablet by mouth twice daily if needed for cough GUAIFENESIN 600 MG TL61B-GAG GUAIFENESIN Inactive ALBUTEROL SULFATE 0.083 % NEBU SOLN one vial per nebulizer TID and PRN cough/ soa ALBUTEROL SULFATE 0.083 % NEBU SOLN 907216 ALBUTEROL SULFATE Inactive ZYPREXA 5 MG TABS take one tablet by mouth every evening ZYPREXA 5 MG TABS 400698 OLANZAPINE Inactive HYDROCODONE-ACETAMINOPHEN 5-325 MG TABS take one tablet by mouth every four hours as needed for pain HYDROCODONE-ACETAMINOPHEN 5-325 MG TABS 870970 HYDROCODONE-ACETAMINOPHEN Inactive BACTROBAN 2 % CREAM apply to ear and nose twice daily BACTROBAN 2 % CREAM 969796 MUPIROCIN CALCIUM Inactive CYCLOBENZAPRINE HCL 10 MG TABS 1/2 tablet by mouth every 8 hours as needed for muscle spasms CYCLOBENZAPRINE HCL 10 MG TABS 962120 CYCLOBENZAPRINE HCL Inactive NAVANE 10 MG CAPS 1/2 tablet twice a day NAVANE 10 MG CAPS THIOTHIXENE Inactive DOXEPIN HCL 10 MG CAPS Take 1 tablet by mouth daily DOXEPIN HCL 10 MG CAPS 5892532 DOXEPIN HCL Inactive HYDROCODONE-ACETAMINOPHEN 7.5-325 MG TABS 1 four times a day as needed for pain HYDROCODONE-ACETAMINOPHEN 7.5-325 MG TABS 686634 HYDROCODONE-ACETAMINOPHEN Inactive NIACIN CR 500 MG CR-TABS 2 qHS NIACIN CR 500 MG CR- TABS NIACIN Inactive ORPHENADRINE CITRATE ER 100 MG PH77X-UMT 1 every 12 hr. as needed ORPHENADRINE CITRATE ER 100 MG [id number]-WEK ORPHENADRINE CITRATE Inactive ACETAMINOPHEN 500 MG TABS 2 Q 6 hr. PRN ACETAMINOPHEN 500 MG TABS 041514 ACETAMINOPHEN Inactive SAPHRIS 5 MG SUBL by mouth twice a day SAPHRIS 5 MG SUBL ASENAPINE MALEATE Inactive NIACIN ER 500 MG CR-TABS 4 qHS (for triglycerides) NIACIN ER 500 MG CR-TABS NIACIN Inactive IBUPROFEN 200 MG TABS 1 Q 6 hr. PRN IBUPROFEN 200 MG TABS 484384 IBUPROFEN Inactive FLUTICASONE PROPIONATE 50 MCG/ACT SUSP 2 sprays each nostril qDay x 30 days FLUTICASONE PROPIONATE 50 MCG/ACT SUSP 036440 FLUTICASONE PROPIONATE Inactive EQL TRUETEST TEST STRP Test blood sugar TID EQL TRUETEST TEST STRP GLUCOSE BLOOD Inactive TERESE CONTOUR TEST STRP monitor blood sugars 3x/day TERESE CONTOUR TEST STRP GLUCOSE BLOOD Inactive DETROL LA 4 MG FR09O-CJC Take 1 tablet by mouth daily DETROL LA 4 MG [id number]-CWU TOLTERODINE TARTRATE Inactive ZYPREXA 7.5 MG TABS 1 at HS ZYPREXA 7.5 MG TABS 421821 OLANZAPINE Inactive THIOTHIXENE 5 MG CAPS by mouth twice a day THIOTHIXENE 5 MG CAPS 834183 THIOTHIXENE Inactive UROXATRAL 10 MG YC85K-IIU Take 1 tablet by mouth daily UROXATRAL 10 MG HG95B-UJQ ALFUZOSIN HCL Inactive CEFDINIR 300 MG CAPS by mouth twice a day CEFDINIR 300 MG CAPS 908922 CEFDINIR Inactive AZITHROMYCIN 500 MG SOLR 1 po q day AZITHROMYCIN 500 MG SOLR 156774 AZITHROMYCIN Inactive AMOXICILLIN 500 MG CAPS 2 po BID x 10 days AMOXICILLIN 500 MG CAPS 910425 AMOXICILLIN Inactive Immunizations Vaccine Administration Date Value [...] Fluvirin, Fluarix, Agriflu(>=18 yo)) Fluzone (>3 yrs.) [[id number]] Influenza, seasonal, injectable pneumococcal immunization administered Pneumovax 23 [CVX33] pneumococcal polysaccharide vaccine, 23 valent Vital Signs Date Name Value Unit Range Description blood pressure, diastolic 68 mm[Hg] BP garcia blood pressure, systolic 118 mm[Hg] BP sys pulse rate E&M 75 /min Heart rate temperature E&M 97.8 [degF] Body temperature weight E&M 242 [lb_av] Weight Measured blood pressure, diastolic, second observation 70 mm[Hg] BP agrcia blood pressure, diastolic, third observation 70 mm[Hg] [...] HGBA1C - Chemistry sodium, serum 130 mmol/L 839-810 8181/06/09 potassium, serum 4.0 mmol/L 3.5-5.2 chloride, serum [...] 6.0 mg/dL 2.6-7.2 sodium, serum 130 mmol/L 285-853 8130/05/01 potassium, serum 5.2 mmol/L 3.5-5.2 chloride, serum [...] 0.40 mg/dL 0.00-1.00 cholesterol, serum 151 mg/dL 352-174 1663/05/01 triglyceride, serum, fasting 356 mg/dL 30-200 HDL [...] Panel - Chemistry sodium, serum 127 mmol/L 336-739 3147/10/27 potassium, serum 4.1 mmol/L 3.5-5.2 chloride, serum [...] HGBA1C - Chemistry sodium, serum 126 mmol/L 371-309 2548/02/26 potassium, serum 4.8 mmol/L 3.5-5.2 chloride, serum [...] mg/dL Encounters Code Encounter Date Provider Facility CPT-37871 Level 3 Est. Patient 21:54:06 CDT Vanessa Hickey MD [facility] CPT-89755 Level 3 Est. Patient 08:54:46 CDT Alina Castaneda MD PhD [facility] CPT-01869 Level 3 Est. Patient 09:32:11 CDT Marvel MARROQUIN [facility] CPT-67623 Level 3 Est. Patient 12:02:49 CDT Alina Castaneda MD PhD [facility] CPT-77459 Level 3 Est. Patient 19:17:33 CDT Alina Castaneda MD PhD [facility] CPT-93505 Level 3 Est. Patient 13:19:10 CDT Marvel [facility] CPT-12175 Level 3 Est. Patient 08:20:05 CDT Alina Castaneda MD [facility]-01691 Level 3 Est. Patient 15:17:18 CDT Alina Castaneda MD [facility]-79731 Level 3 Est. Patient 14:25:36 ACCOUNTANT MANAGER Marvel Charles [facility] CPT-21243 Level 3 Est. Patient 10:09:15 ACCOUNTANT MANAGER Marvel [facility]-21914 Level 3 Est. Patient 21:28:43 CDT Alina Castaneda MD [facility]-90555 Level 3 Est. Patient 15:20:11 [facility] Est[facility] Patient 19:08:12 CDT Alina Castaneda MD [facility]-06340 Level 3 Est. Patient 15:06:39 CDT [facility] Patient 17:48:15 CDT Alina Castaneda MD [facility]-36053 Level 3 Est. Patient 14:53:49 CDT Alina Castaneda MD [facility]-23279 Level 3 Est. Patient 09:35:16 CDT Alina Castaneda MD [facility]-70865 Level 3 Est. Patient 12:23:22 CDT Alina Castaneda MD [facility]-51105 Level 3 Est. Patient 16:19:15 CDT Alina Castaneda MD [facility]75759 Level 3 Est. Patient 21:39:56 ACCOUNTANT MANAGER Alina Castaneda MD [facility]-40278 Level 4 Est. Patient 14:12:56 ACCOUNTANT MANAGER Alina Castaneda MD [facility]-60010 Level 2 Est. Patient 15:34:57 ACCOUNTANT MANAGER Alina Castaneda MD [facility]-95881 Level 3 Est. Patient 12:17:04 ACCOUNTANT MANAGER Alina Castaneda MD [facility]-75621 Level 3 Est. Patient 09:18:18 ACCOUNTANT MANAGER Marvel [facility]-22303 Level 2 Est. Patient 21:50:24 CDT Alina Castaneda MD [facility]-59747 Level 3 Est. Patient 09:17:28 CDT Marvel [facility]-19884 Level 4 Est. Patient 18:54:02 CDT Alina Castaneda MD [facility]-51385 Level 3 Est. Patient 10:47:10 CDT Alina Castaneda MD [facility]-00180 Level 3 Est. Patient 09:22:20 CDT Marvel [facility]-77776 Level 3 Est. Patient 16:39:43 CDT Marvel [facility]-34811 Level 3 Est. Patient 16:05:16 CDT Alina Castaneda MD [facility]-71197 Level 3 Est. Patient 00:29:15 CDT Alina Castaneda MD [facility]-11787 Level 3 Est. Patient 10:49:22 ACCOUNTANT MA[facility]GER [facility] Level 3 Est. Patient 21:30:19 ACCOUNTANT MANAGER Alina Castaneda MD [facility] CPT-47751 Level 4 Est. Patient 17:04:11 ACCOUNTANT MANAGER Marvel Mackenzieestela [facility] CPT-06207 Level 3 Est. Patient 15:34:11 ACCOUNTANT MANAGER Marvel [facility] CPT-35752 Level 2 Est. Patient 12:51:58 ACCOUNTANT MANAGER Alina Castaneda MD [facility] CPT-33792 Level 3 Est. Patient 13:20:01 ACCOUNTANT MANAGER Alina aCstaneda MD [facility] CPT-77339 Level 3 Est. Patient 09:23:35 CDT Alina Castaneda MD [facility] Procedures Code Procedure Name Date Entry Date Standard Description CPT-19813 Bladder Scan 21:54:06 CDT CPT-G0008 Administration of Influenza Virus Vaccine 13:05:26 CDT CPT-95505 Fluzone Quadrivalent Intramuscular Suspension 0.5 ML 13: 05:26 CDT CPT-22523 Administration single or combination vaccine inc oral 11 :49:51 CDT CPT-83768 Pneumovax 11:49:51 CDT CPT-25507 Ribs unilateral 2V 12:37:22 ACCOUNTANT MANAGER CPT-24498 Chest 2V Frontal and Lat 17:15:26 CDT CPT-09252 Abx/Therapy Injection 18:54:02 CDT CPT-J0696 Rocephin 1000 mg (Ceftriaxone) 16:00:32 CDT CPT-58976 Chest 2V Frontal and Lat 15:26:45 CDT CPT-47368 Chest 2V Frontal and Lat 10:23:27 CDT CPT-39615 Venipuncture Draw Fee 10:11:00 CDT CPT-69022 Administration single or combination vaccine inc oral 11 :56:38 CDT CPT-69384 Influenza split virus > age 3 11:56:38 CDT CPT-27612 Venipuncture Draw Fee 08:49:54 ACCOUNTANT MANAGER CPT-99427 EKG Trac and Interp 17:54:19 ACCOUNTANT MANAGER
--- OUTSIDE RECORDS SUMMARY | 2018-07-02 21:09 | XMS REPORT | Clinical Summary ---
Author Author Admin, TERELL Organization [facility] Address Unknown Phone Allergies, Adverse Reactions, Alerts [...] Gout, unspecified FH STROKE V17.1 Resolved Marvel MRAROQUIN Family history of stroke (cerebrovascular) FATIGUE 780.79 [...] mouth three times daily, scheduled CYCLOBENZAPRINE HCL 22079956302 Active Alina Castaneda MD PhD Active HUMALOG 100 UNIT/ML SOLN take 40u with each meal INSULIN LISPRO (HUMAN) 23661052649 Active Alina Castaneda MD PhD Active TOLTERODINE TARTRATE 2 MG TABS 1 pill twice daily, for bladder TOLTERODINE TARTRATE 51692063837 Active Alina Castaneda MD PhD Active DETROL LA 4 MG [id number] Take 1 tablet by mouth daily TOLTERODINE TARTRATE 71414320493 No Longer Active Alina Castaneda MD PhD Active HYDROCODONE-ACETAMINOPHEN 5-325 MG TABS 2 tabs by mouth three times daily as needed for pain HYDROCODONE-ACETAMINOPHEN 52365492737 Active Alina Castaneda MD PhD Active TERESE CONTOUR TEST STRP monitor blood sugars 3x/day GLUCOSE BLOOD 83705163089 No Longer Active Alina Castaneda MD PhD Active EQL TRUETEST TEST STRP Test blood sugar TID GLUCOSE BLOOD 28094919888 No Longer Active Alina Castaneda MD PhD Active FLUTICASONE PROPIONATE 50 MCG/ACT SUSP 2 sprays each nostril qDay x 30 days FLUTICASONE PROPIONATE 15406212175 No Longer Active Alina Castaneda MD PhD Active IBUPROFEN 200 MG TABS 1 Q 6 hr. PRN IBUPROFEN 77029204049 No Longer Active Alina Castaneda MD PhD Active NIACIN ER 500 MG CR-TABS 4 qHS (for triglycerides) NIACIN 28831808355 No Longer Active Alina Castaneda MD PhD Active LEVEMIR 100 UNIT/ML SOLN Take 100u at 7-8pm INSULIN DETEMIR 62524788390 Active Alina Castaneda MD PhD Active TRUETEST TEST STRP check sugars 4x/day GLUCOSE BLOOD 47276934324 Active Alina Castaneda MD PhD Active ALFUZOSIN HCL ER 10 MG [id number] 1 tablet daily ALFUZOSIN HCL 35187746375 Active Vanessa Hickey MD Active CLONAZEPAM 1 MG TABS 1 pill by mouth three times daily CLONAZEPAM 50647816307 Active Alina Castaneda MD PhD Active LOVAZA 1 GM CAPS 4 daily (for triglycerides) [id number] ETHYL ESTERS 68318831357 Active Alina Castaneda MD PhD Active SAPHRIS 5 MG SUBL by mouth twice a day ASENAPINE MALEATE 47524238915 No Longer Active Maljohn Ziglari [employer] ADMINISTRATOR Active ACETAMINOPHEN 500 MG TABS 2 Q 6 hr. PRN ACETAMINOPHEN 82780397165 No Longer Active Maljohn Mackenzieglari [employer] ADMINISTRATOR Active VERAPAMIL HCL ER 120 MG [id number] 1 pill by mouth twice a day, for headache prevention/control VERAPAMIL HCL 64093772957 Active Alina Castaneda MD PhD Active ORPHENADRINE CITRATE ER 100 MG [id number] 1 every 12 hr. as needed ORPHENADRINE CITRATE 87852892793 No Longer Active Alina Castaneda MD PhD Active NIACIN CR 500 MG CR-TABS 2 qHS NIACIN 17883050552 No Longer Active Alina Castaneda MD PhD Active AMOXICILLIN 500 MG CAPS 2 po BID x 10 days AMOXICILLIN 41486850006 No Longer Active Alina Castaneda MD PhD Active ZYPREXA 7.5 MG TABS 1 at HS OLANZAPINE 78501764154 Active Alina Castaneda MD PhD Active THIOTHIXENE 5 MG CAPS by mouth twice a day THIOTHIXENE 23501882947 Active Alina Castaneda MD PhD Active HYDROCODONE-ACETAMINOPHEN 7.5-325 MG TABS 1 four times a day as needed for pain HYDROCODONE-ACETAMINOPHEN 57562974201 No Longer Active Alina Castaneda MD PhD Active METFORMIN HCL ER 500 MG PS91O-MFP Take three tablets by mouth everyday METFORMIN HCL 82464576579 Active Zainnivia Araceli VMWARE ADMINISTRATOR Active DOXEPIN HCL 10 MG CAPS Take 1 tablet by mouth daily DOXEPIN HCL 12277170851 No Longer Active Salina Han A Active NAVANE 10 MG CAPS 1/2 tablet twice a day THIOTHIXENE No Longer Active Salina Han [facility] Active CYCLOBENZAPRINE HCL 10 MG TABS 1/2 tablet by mouth every 8 hours as needed for muscle spasms CYCLOBENZAPRINE HCL 98852717083 No Longer Active Alina Castaneda MD PhD Active BACTROBAN 2 % CREAM apply to ear and nose twice daily MUPIROCIN CALCIUM 54456743950 No Longer Active Alina Castaneda MD PhD Active HYDROCODONE-ACETAMINOPHEN 5-325 MG TABS take one tablet by mouth every four hours as needed for pain HYDROCODONE-ACETAMINOPHEN 80300850368 No Longer Active Alina Castaneda MD PhD Active ZOLPIDEM TARTRATE 10 MG TABS take at bedtime ZOLPIDEM TARTRATE 92285236771 Active Alina Castaneda MD PhD Active ZYPREXA 5 MG TABS take one tablet by mouth every evening OLANZAPINE 25380914066 No Longer Active Alina Castaneda MD PhD Active BD INSULIN SYRINGE 28G X 1/2" 1 ML MISC use as directed INSULIN SYRINGE -NEEDLE U-100 90515486501 Active Alina Castaneda MD PhD Active ALBUTEROL SULFATE 0.083 % NEBU SOLN one vial per nebulizer TID and PRN cough/ soa ALBUTEROL SULFATE 22994824987 No Longer Active Alina Castaneda MD PhD Active GUAIFENESIN 600 MG BP08I-YUL 1 tablet by mouth twice daily if needed for cough GUAIFENESIN 15316942386 No Longer Active Marvel MARROQUIN Active AZITHROMYCIN 500 MG SOLR 1 po q day AZITHROMYCIN 95275037680 No Longer Active Alina Castaneda MD PhD Active METOPROLOL SUCCINATE 100 MG CZ05F-IXH 1 by mouth daily for blood pressure METOPROLOL SUCCINATE 02851407203 Active Alina Castaneda MD PhD Active PROMETHAZINE-CODEINE 6.25-10 MG/5ML SYRP 1 tsp po q 6 hours prn cough PROMETHAZINE-CODEINE 52469219389 No Longer Active Alina Castaneda MD PhD Active CEFDINIR 300 MG CAPS by mouth twice a day CEFDINIR 03504265925 No Longer Active Alina Castaneda MD PhD Active METFORMIN HCL 500 MG JT22A-MCL Take 3 tablets by mouth everyday METFORMIN HCL 33590747484 No Longer Active Alina Castaneda MD PhD Active LEVEMIR 100 UNIT/ML SOLN 90 units SQ qHS INSULIN DETEMIR 56949578910 No Longer Active Marvel MARROQUIN Active TOPROL XL 100 MG RB83P-QUG 1 @ HS METOPROLOL SUCCINATE 48162190073 No Longer Active Marvel MARROQUIN Active ALLOPURINOL 300 MG TABS Take one by mouth daily ALLOPURINOL 75526802768 Active Alina Castaneda MD PhD Active ZYPREXA 10 MG TABS Take one by mouth daily OLANZAPINE 23893606620 No Longer Active Alina Castaneda MD PhD Active NOVOLOG 100 UNIT/ML SOLN 40 units with every meal INSULIN ASPART 46845741501 No Longer Active Alina Castaneda MD PhD Active VERAPAMIL HCL CR 120 MG TAB CR 1 qPM VERAPAMIL HCL 81843567811 No Longer Active Salina Han A Active ZYPREXA 15 MG TABS Take 1 tablet by mouth daily OLANZAPINE 18926150193 No Longer Active Marvel MARROQUIN Active LISINOPRIL 20 MG TABS 1 BID LISINOPRIL 84837590419 Active Mao Rodriguez MD Active ALBUTEROL SULFATE (2.5 MG/3ML) 0.083% NEBU 1 neb tid and prn cough ALBUTEROL SULFATE 14469223337 No Longer Active Alina Castaneda MD PhD Active FLUVOXAMINE MALEATE 100 MG TABS Take one (1) tablet by mouth am, 05/25 at noon, 1 pm FLUVOXAMINE MALEATE 80440638771 Active Alina Castaneda MD PhD Active TRAVATAN Z 0.004 % SOLN 1 gtt each eye daily TRAVOPROST 11529827262 Active Alina Mendez Active LANTUS 100 UNIT/ML SOLN 60 units sq q hs INSULIN GLARGINE 33325127604 No Longer Active Alina Mendez Active UROXATRAL 10 MG [id number] Take 1 tablet by mouth daily ALFUZOSIN HCL 96880629559 Active Tanya MARROUQIN Active ALBUTEROL SULFATE (2.5 MG/3ML) 0.083% NEBU 1 neb tid and prn cough ALBUTEROL SULFATE (2.5 MG/3ML) 0.083% NEBU 489430 ALBUTEROL SULFATE Inactive ZYPREXA 15 MG TABS Take 1 tablet by mouth daily ZYPREXA 15 MG TABS 874029 OLANZAPINE Inactive VERAPAMIL HCL CR 120 MG TAB CR 1 qPM VERAPAMIL HCL CR 120 MG TAB CR VERAPAMIL HCL Inactive ZYPREXA 10 MG TABS Take one by mouth daily ZYPREXA 10 MG TABS 276632 OLANZAPINE Inactive TOPROL XL 100 MG [id number] 1 @ HS TOPROL XL 100 MG EF28H-DBC METOPROLOL SUCCINATE Inactive LEVEMIR 100 UNIT/ML SOLN 90 units SQ qHS LEVEMIR 100 UNIT/ML SOLN INSULIN DETEMIR Inactive PROMETHAZINE-CODEINE 6.25-10 MG/5ML SYRP 1 tsp po q 6 hours prn cough PROMETHAZINE-CODEINE 6.25-10 MG/5ML SYRP 902544 PROMETHAZINE- CODEINE Inactive GUAIFENESIN 600 MG VU78I-ABB 1 tablet by mouth twice daily if needed for cough GUAIFENESIN 600 MG GE60K-OFS GUAIFENESIN Inactive ALBUTEROL SULFATE 0.083 % NEBU SOLN one vial per nebulizer TID and PRN cough/ soa ALBUTEROL SULFATE 0.083 % NEBU SOLN 967447 ALBUTEROL SULFATE Inactive ZYPREXA 5 MG TABS take one tablet by mouth every evening ZYPREXA 5 MG TABS 171750 OLANZAPINE Inactive HYDROCODONE-ACETAMINOPHEN 5-325 MG TABS take one tablet by mouth every four hours as needed for pain HYDROCODONE-ACETAMINOPHEN 5-325 MG TABS 568250 HYDROCODONE-ACETAMINOPHEN Inactive BACTROBAN 2 % CREAM apply to ear and nose twice daily BACTROBAN 2 % CREAM 404829 MUPIROCIN CALCIUM Inactive CYCLOBENZAPRINE HCL 10 MG TABS 1/2 tablet by mouth every 8 hours as needed for muscle spasms CYCLOBENZAPRINE HCL 10 MG TABS 031283 CYCLOBENZAPRINE HCL Inactive NAVANE 10 MG CAPS 1/2 tablet twice a day NAVANE 10 MG CAPS THIOTHIXENE Inactive DOXEPIN HCL 10 MG CAPS Take 1 tablet by mouth daily DOXEPIN HCL 10 MG CAPS 6740439 DOXEPIN HCL Inactive HYDROCODONE-ACETAMINOPHEN 7.5-325 MG TABS 1 four times a day as needed for pain HYDROCODONE-ACETAMINOPHEN 7.5-325 MG TABS 638882 HYDROCODONE-ACETAMINOPHEN Inactive NIACIN CR 500 MG CR-TABS 2 qHS NIACIN CR 500 MG CR- TABS NIACIN Inactive ORPHENADRINE CITRATE ER 100 MG FS20H-ZAF 1 every 12 hr. as needed ORPHENADRINE CITRATE ER 100 MG [id number] ORPHENADRINE CITRATE Inactive ACETAMINOPHEN 500 MG TABS 2 Q 6 hr. PRN ACETAMINOPHEN 500 MG TABS 499808 ACETAMINOPHEN Inactive SAPHRIS 5 MG SUBL by mouth twice a day SAPHRIS 5 MG SUBL ASENAPINE MALEATE Inactive NIACIN ER 500 MG CR-TABS 4 qHS (for triglycerides) NIACIN ER 500 MG CR-TABS NIACIN Inactive IBUPROFEN 200 MG TABS 1 Q 6 hr. PRN IBUPROFEN 200 MG TABS 402169 IBUPROFEN Inactive FLUTICASONE PROPIONATE 50 MCG/ACT SUSP 2 sprays each nostril qDay x 30 days FLUTICASONE PROPIONATE 50 MCG/ACT SUSP 448804 FLUTICASONE PROPIONATE Inactive EQL TRUETEST TEST STRP Test blood sugar TID EQL TRUETEST TEST STRP GLUCOSE BLOOD Inactive TERESE CONTOUR TEST STRP monitor blood sugars 3x/day TERESE CONTOUR TEST STRP GLUCOSE BLOOD Inactive DETROL LA 4 MG [id number]-[id number] Take 1 tablet by mouth daily DETROL LA 4 MG [id number]-JTW TOLTERODINE TARTRATE Inactive CEFDINIR 300 MG CAPS by mouth twice a day CEFDINIR 300 MG CAPS 505150 CEFDINIR Inactive AZITHROMYCIN 500 MG SOLR 1 po q day AZITHROMYCIN 500 MG SOLR 698112 AZITHROMYCIN Inactive AMOXICILLIN 500 MG CAPS 2 po BID x 10 days AMOXICILLIN 500 MG CAPS 823444 AMOXICILLIN Inactive Immunizations Vaccine Administration Date Value [...] Fluvirin, Fluarix, Agriflu(>=18 yo)) Fluzone (>3 yrs.) [[id number]] Influenza, seasonal, injectable pneumococcal immunization administered Pneumovax [...] HGBA1C - Chemistry sodium, serum 126 mmol/L 916-348 6875/02/26 potassium, serum 4.8 mmol/L 3.5-5.2 chloride, serum [...] DIRECT - Chemistry cholesterol, serum 158 mg/dL 131-465 9703/07/11 triglyceride, serum, fasting 489 mg/dL 30-200 HDL [...] mg/dL Encounters Code Encounter Date Provider Facility CPT-00249 Level 3 Est. Patient 15:17:18 CDT Alina Castaneda MD PhD [facility] CPT-14363 Level 3 Est. Patient 14:25:36 DIRECTOR OF MUSIC THERAPY [facility] CPT-34729 Level 3 Est. Patient 10:09:15 DIRECTOR OF MUSIC THERAPY [facility] CPT-07983 Level 3 Est. Patient 21:28:43 CDT Alina Castaneda MD PhD [facility] CPT-75041 Level 3 Est. Patient 15:20:11 CDT [facility] CPT-43849 Level 4 Est. Patient 19:08:12 CDT Alina Castaneda MD PhD [facility] CPT-44229 Level 3 Est. Patient 15:06:39 CDT [facility] CPT-46151 Level 4 Est. Patient 17:48:15 CDT Alina Castaneda MD [facility]-23144 Level 3 Est. Patient 14:53:49 CDT Alina Castaneda MD [facility]-48526 Level 3 Est. Patient 09:35:16 CDT Alina Castaneda MD [facility]-17775 Level 3 Est. Patient 12:23:22 CDT Alina Castaneda MD [facility]-25882 Level 3 Est. Patient 16:19:15 CDT Alina Castaneda MD [facility]-38703 Level 3 Est. Patient 21:39:56 DIRECTOR OF MUSIC THERAPY Alina Castaneda MD [facility]-97036 Level 4 Est. Patient 14:12:56 DIRECTOR OF MUSIC THERAPY Alina Castaneda MD [facility]-96406 Level 2 Est. Patient 15:34:57 DIRECTOR OF MUSIC THERAPY Alina Castaneda MD [facility]-59500 Level 3 Est. Patient 12:17:04 DIRECTOR OF MUSIC THERAPY Alina Castaneda MD [facility]-58812 Level 3 Est. Patient 09:18:18 DIRECTOR OF MUSIC THERAPY Marvel Charles [facility]-25924 Level 2 Est. Patient 21:50:24 CDT Alina Castaneda MD [facility]-89783 Level 3 Est. Patient 09:17:28 CDT Marvel Charles [facility]-29701 Level 4 Est. Patient 18:54:02 CDT Alina Castaneda MD [facility]-62046 Level 3 Est. Patient 10:47:10 CDT Alina Castaneda MD [facility]-98186 Level 3 Est. Patient 09:22:20 CDT Marvel Charles [facility] CPT-24328 Level 3 Est. Patient 16:39:43 CDT [facility] Level 3 Est. Patient 16:05:16 CDT Alina Castaneda MD [facility] CPT-28448 Level 3 Est. Patient 00:29:15 CDT Alina Castaneda MD [facility] CPT-66107 Level 3 Est. Patient 10:49:22 DIRECTOR OF MUSIC THERAPY [facility] CPT-29909 Level 3 Est. Patient 21:30:19 DIRECTOR OF MUSIC THERAPY Alina Castaneda MD [facility] CPT-25607 Level 4 Est. Patient 17:04:11 DIRECTOR OF MUSIC THERAPY [facility] CPT-11756 Level 3 Est. Patient 15:34:11 DIRECTOR OF MUSIC THERAPY [facility] CPT-70772 Level 2 Est. Patient 12:51:58 DIRECTOR OF MUSIC THERAPY Alina Castaneda MD [facility] CPT-61273 Level 3 Est. Patient 13:20:01 DIRECTOR OF MUSIC THERAPY Alina Castaneda MD [facility] CPT-69423 Level 3 Est. Patient 09:23:35 CDT Alina Castaneda MD [facility] Procedures Code Procedure Name Date Entry Date Standard Description CPT-84197 Administration single or combination vaccine inc oral 11 :49:51 CDT CPT-42675 Pneumovax 11:49:51 CDT CPT-92848 Ribs unilateral 2V 12:37:22 DIRECTOR OF MUSIC THERAPY CPT-57676 Chest 2V Frontal and Lat 17:15:26 CDT CPT-60254 Abx/Therapy Injection 18:54:02 CDT CPT-J0696 Rocephin 1000 mg (Ceftriaxone) 16:00:32 CDT CPT-64065 Chest 2V Frontal and Lat 15:26:45 CDT CPT-58821 Chest 2V Frontal and Lat 10:23:27 CDT CPT-31417 Venipuncture Draw Fee 10:11:00 CDT CPT-74866 Administration single or combination vaccine inc oral 11 :56:38 CDT CPT-33626 Influenza split virus > age 3 11:56:38 CDT CPT-67386 Venipuncture Draw Fee 08:49:54 DIRECTOR OF MUSIC THERAPY CPT-32878 EKG Trac and Interp 17:54:19 DIRECTOR OF MUSIC THERAPY
--- OUTSIDE RECORDS SUMMARY | 2018-07-02 21:10 | XMS REPORT | Clinical Summary ---
Author Author Admin, TERELL Organization [facility] Address Unknown Phone Allergies, Adverse Reactions, Alerts [...] with lunch and suppetr. INSULIN LISPRO (HUMAN) [id number] Active Marvel Mackenzieglestela SHIPFITTER Active LEVEMIR 100 UNIT/ML SOLN Take 80 u at 7-8pm INSULIN DETEMIR 95520477237 Active Marvel Mackenzieglestela SHIPFITTER Active BD INSULIN SYRINGE 28G X 1/2" 1 ML MISC 1 four times per day INSULIN SYRINGE-NEEDLE U-100 87421227825 Active Alina Castaneda MD PhD Active CYCLOBENZAPRINE HCL 10 MG TABS 1 tablet by mouth three times daily, scheduled CYCLOBENZAPRINE HCL 05178898383 Active Alina Castaneda MD PhD Active TOLTERODINE TARTRATE 2 MG TABS 1 pill twice daily, for bladder TOLTERODINE TARTRATE 24518339956 Active Alina Castaneda MD PhD Active DETROL LA 4 MG [id number] Take 1 tablet by mouth daily TOLTERODINE TARTRATE 60690832536 No Longer Active Alina Castaneda MD PhD Active HYDROCODONE-ACETAMINOPHEN 5-325 MG TABS 2 tabs by mouth three times daily as needed for pain HYDROCODONE-ACETAMINOPHEN 10304195297 Active Alina Castaneda MD PhD Active TERESE CONTOUR TEST STRP monitor blood sugars 3x/day GLUCOSE BLOOD 76512659175 No Longer Active Alina Castaneda MD PhD Active EQL TRUETEST TEST STRP Test blood sugar TID GLUCOSE BLOOD 47000302022 No Longer Active Alina Castaenda MD PhD Active FLUTICASONE PROPIONATE 50 MCG/ACT SUSP 2 sprays each nostril qDay x 30 days FLUTICASONE PROPIONATE 02512305293 No Longer Active Alina Castaneda MD PhD Active IBUPROFEN 200 MG TABS 1 Q 6 hr. PRN IBUPROFEN 78804283532 No Longer Active Alina Castaneda MD PhD Active NIACIN ER 500 MG CR-TABS 4 qHS (for triglycerides) NIACIN 03859987112 No Longer Active Alina Castaneda MD PhD Active TRUETEST TEST STRP check sugars 4x/day GLUCOSE BLOOD 96956600189 Active Alina Castaneda MD PhD Active ALFUZOSIN HCL ER 10 MG [id number] 1 tablet daily ALFUZOSIN HCL 82967690242 Active Vanessa Hickey MD Active CLONAZEPAM 1 MG TABS 1 pill by mouth three times daily CLONAZEPAM 88235957109 Active Alina Castaneda MD PhD Active LOVAZA 1 GM CAPS 4 daily (for triglycerides) [id number] ETHYL ESTERS 41152603429 Active Alina Castaneda MD PhD Active SAPHRIS 5 MG SUBL by mouth twice a day ASENAPINE MALEATE 34669056392 No Longer Active Marvel MARROQUIN Active ACETAMINOPHEN 500 MG TABS 2 Q 6 hr. PRN ACETAMINOPHEN 06357619534 No Longer Active Marvel MENDOZAP Active VERAPAMIL HCL ER 120 MG [id number] 1 pill by mouth twice a day, for headache prevention/control VERAPAMIL HCL 56199758425 Active Alina Castaneda MD PhD Active ORPHENADRINE CITRATE ER 100 MG [id number] 1 every 12 hr. as needed ORPHENADRINE CITRATE 21855237020 No Longer Active Alina Castaneda MD PhD Active NIACIN CR 500 MG CR-TABS 2 qHS NIACIN 48683147799 No Longer Active Alina Castaneda MD PhD Active AMOXICILLIN 500 MG CAPS 2 po BID x 10 days AMOXICILLIN 17497152278 No Longer Active Alina Castaneda MD PhD Active ZYPREXA 7.5 MG TABS 1 at HS OLANZAPINE 53170063826 Active Alina Castaneda MD PhD Active THIOTHIXENE 5 MG CAPS by mouth twice a day THIOTHIXENE 22854351232 Active Alina Castaneda MD PhD Active HYDROCODONE-ACETAMINOPHEN 7.5-325 MG TABS 1 four times a day as needed for pain HYDROCODONE-ACETAMINOPHEN 86835289314 No Longer Active Alina Castaneda MD PhD Active METFORMIN HCL ER 500 MG AL96V-IYN Take three tablets by mouth everyday METFORMIN HCL 16392503573 Active Marvel MARROQUIN Active DOXEPIN HCL 10 MG CAPS Take 1 tablet by mouth daily DOXEPIN HCL 25272005855 No Longer Active Salina ROJAS Active NAVANE 10 MG CAPS 1/2 tablet twice a day THIOTHIXENE No Longer Active Salina ROBBINSA Active CYCLOBENZAPRINE HCL 10 MG TABS 1/2 tablet by mouth every 8 hours as needed for muscle spasms CYCLOBENZAPRINE HCL 57396040808 No Longer Active Alina Castaneda MD PhD Active BACTROBAN 2 % CREAM apply to ear and nose twice daily MUPIROCIN CALCIUM 91133003318 No Longer Active Alina Castaneda MD PhD Active HYDROCODONE-ACETAMINOPHEN 5-325 MG TABS take one tablet by mouth every four hours as needed for pain HYDROCODONE-ACETAMINOPHEN 22078162502 No Longer Active Alina Castaneda MD PhD Active ZOLPIDEM TARTRATE 10 MG TABS take at bedtime ZOLPIDEM TARTRATE 01312366098 Active Alina Castaneda MD PhD Active ZYPREXA 5 MG TABS take one tablet by mouth every evening OLANZAPINE 77451746595 No Longer Active Alina Castaneda MD PhD Active ALBUTEROL SULFATE 0.083 % NEBU SOLN one vial per nebulizer TID and PRN cough/ soa ALBUTEROL SULFATE 36480490164 No Longer Active Alina Castaneda MD PhD Active GUAIFENESIN 600 MG [id number]-KHC 1 tablet by mouth twice daily if needed for cough GUAIFENESIN 50542306075 No Longer Active Marvel MENDOZAP Active AZITHROMYCIN 500 MG SOLR 1 po q day AZITHROMYCIN 30114495279 No Longer Active Alina Castaneda MD PhD Active METOPROLOL SUCCINATE 100 MG RO16P-GJM 1 by mouth daily for blood pressure METOPROLOL SUCCINATE 24348706480 Active Alina Castaneda MD PhD Active PROMETHAZINE-CODEINE 6.25-10 MG/5ML SYRP 1 tsp po q 6 hours prn cough PROMETHAZINE-CODEINE 35248641745 No Longer Active Alina Castaneda MD PhD Active CEFDINIR 300 MG CAPS by mouth twice a day CEFDINIR 36742512700 No Longer Active Alina Castaneda MD PhD Active METFORMIN HCL 500 MG MG32B-WHG Take 3 tablets by mouth everyday METFORMIN HCL 62641568881 No Longer Active Alina Castaneda MD PhD Active LEVEMIR 100 UNIT/ML SOLN 90 units SQ qHS INSULIN DETEMIR 89810735413 No Longer Active Marvel MARROQUIN Active TOPROL XL 100 MG [id number]-[id number] 1 @ HS METOPROLOL SUCCINATE 83396236391 No Longer Active Marvel MARROQUIN Active ALLOPURINOL 300 MG TABS Take one by mouth daily ALLOPURINOL 76186950665 Active Alina Castaneda MD PhD Active ZYPREXA 10 MG TABS Take one by mouth daily OLANZAPINE 96978393498 No Longer Active Alina Castaneda MD PhD Active NOVOLOG 100 UNIT/ML SOLN 40 units with every meal INSULIN ASPART 73302812416 No Longer Active Alina Castaneda MD PhD Active VERAPAMIL HCL CR 120 MG TAB CR 1 qPM VERAPAMIL HCL 04078541998 No Longer Active Salina Emely [facility] Active ZYPREXA 15 MG TABS Take 1 tablet by mouth daily OLANZAPINE 41886272603 No Longer Active Marvel MARROQUIN Active LISINOPRIL 20 MG TABS 1 BID LISINOPRIL 17732737059 Active Mao Rodriguez MD Active ALBUTEROL SULFATE (2.5 MG/3ML) 0.083% NEBU 1 neb tid and prn cough ALBUTEROL SULFATE 87923495946 No Longer Active Alina Castaneda MD PhD Active FLUVOXAMINE MALEATE 100 MG TABS Take one (1) tablet by mouth am, 1/2 at noon, 1 pm FLUVOXAMINE MALEATE 19023479090 Active Alina Castaneda MD PhD Active TRAVATAN Z 0.004 % SOLN 1 gtt each eye daily TRAVOPROST 87750509385 Active Alina Mendez Active LANTUS 100 UNIT/ML SOLN 60 units sq q hs INSULIN GLARGINE 14566280904 No Longer Active Alina Mendez Active UROXATRAL 10 MG QC74V-MBE Take 1 tablet by mouth daily ALFUZOSIN HCL 32157997997 Active Tanya MARROQUIN Active ALBUTEROL SULFATE (2.5 MG/3ML) 0.083% NEBU 1 neb tid and prn cough ALBUTEROL SULFATE (2.5 MG/3ML) 0.083% NEBU 020738 ALBUTEROL SULFATE Inactive ZYPREXA 15 MG TABS Take 1 tablet by mouth daily ZYPREXA 15 MG TABS 544200 OLANZAPINE Inactive VERAPAMIL HCL CR 120 MG TAB CR 1 qPM VERAPAMIL HCL CR 120 MG TAB CR VERAPAMIL HCL Inactive ZYPREXA 10 MG TABS Take one by mouth daily ZYPREXA 10 MG TABS 650109 OLANZAPINE Inactive TOPROL XL 100 MG [id number] 1 @ HS TOPROL XL 100 MG TN70N-XZV METOPROLOL SUCCINATE Inactive LEVEMIR 100 UNIT/ML SOLN 90 units SQ qHS LEVEMIR 100 UNIT/ML SOLN INSULIN DETEMIR Inactive PROMETHAZINE-CODEINE 6.25-10 MG/5ML SYRP 1 tsp po q 6 hours prn cough PROMETHAZINE-CODEINE 6.25-10 MG/5ML SYRP 000853 PROMETHAZINE- CODEINE Inactive GUAIFENESIN 600 MG AZ98H-OEB 1 tablet by mouth twice daily if needed for cough GUAIFENESIN 600 MG [id number]-TDA GUAIFENESIN Inactive ALBUTEROL SULFATE 0.083 % NEBU SOLN one vial per nebulizer TID and PRN cough/ soa ALBUTEROL SULFATE 0.083 % NEBU SOLN 911862 ALBUTEROL SULFATE Inactive ZYPREXA 5 MG TABS take one tablet by mouth every evening ZYPREXA 5 MG TABS 287831 OLANZAPINE Inactive HYDROCODONE-ACETAMINOPHEN 5-325 MG TABS take one tablet by mouth every four hours as needed for pain HYDROCODONE-ACETAMINOPHEN 5-325 MG TABS 538064 HYDROCODONE-ACETAMINOPHEN Inactive BACTROBAN 2 % CREAM apply to ear and nose twice daily BACTROBAN 2 % CREAM 406228 MUPIROCIN CALCIUM Inactive CYCLOBENZAPRINE HCL 10 MG TABS 1/2 tablet by mouth every 8 hours as needed for muscle spasms CYCLOBENZAPRINE HCL 10 MG TABS 523443 CYCLOBENZAPRINE HCL Inactive NAVANE 10 MG CAPS 1/2 tablet twice a day NAVANE 10 MG CAPS THIOTHIXENE Inactive DOXEPIN HCL 10 MG CAPS Take 1 tablet by mouth daily DOXEPIN HCL 10 MG CAPS 0079077 DOXEPIN HCL Inactive HYDROCODONE-ACETAMINOPHEN 7.5-325 MG TABS 1 four times a day as needed for pain HYDROCODONE-ACETAMINOPHEN 7.5-325 MG TABS 235426 HYDROCODONE-ACETAMINOPHEN Inactive NIACIN CR 500 MG CR-TABS 2 qHS NIACIN CR 500 MG CR- TABS NIACIN Inactive ORPHENADRINE CITRATE ER 100 MG [id number] 1 every 12 hr. as needed ORPHENADRINE CITRATE ER 100 MG VR55F-AIF ORPHENADRINE CITRATE Inactive ACETAMINOPHEN 500 MG TABS 2 Q 6 hr. PRN ACETAMINOPHEN 500 MG TABS 604330 ACETAMINOPHEN Inactive SAPHRIS 5 MG SUBL by mouth twice a day SAPHRIS 5 MG SUBL ASENAPINE MALEATE Inactive NIACIN ER 500 MG CR-TABS 4 qHS (for triglycerides) NIACIN ER 500 MG CR-TABS NIACIN Inactive IBUPROFEN 200 MG TABS 1 Q 6 hr. PRN IBUPROFEN 200 MG TABS 406629 IBUPROFEN Inactive FLUTICASONE PROPIONATE 50 MCG/ACT SUSP 2 sprays each nostril qDay x 30 days FLUTICASONE PROPIONATE 50 MCG/ACT SUSP 515725 FLUTICASONE PROPIONATE Inactive EQL TRUETEST TEST STRP Test blood sugar TID EQL TRUETEST TEST STRP GLUCOSE BLOOD Inactive TERESE CONTOUR TEST STRP monitor blood sugars 3x/day TERESE CONTOUR TEST STRP GLUCOSE BLOOD Inactive DETROL LA 4 MG [id number]-IZV Take 1 tablet by mouth daily DETROL LA 4 MG NN35M-VIZ TOLTERODINE TARTRATE Inactive CEFDINIR 300 MG CAPS by mouth twice a day CEFDINIR 300 MG CAPS 055976 CEFDINIR Inactive AZITHROMYCIN 500 MG SOLR 1 po q day AZITHROMYCIN 500 MG SOLR 945464 AZITHROMYCIN Inactive AMOXICILLIN 500 MG CAPS 2 po BID x 10 days AMOXICILLIN 500 MG CAPS 555568 AMOXICILLIN Inactive Immunizations Vaccine Administration Date Value [...] Fluvirin, Fluarix, Agriflu(>=18 yo)) Fluzone (>3 yrs.) [[id number]] Influenza, seasonal, injectable pneumococcal immunization administered Pneumovax [...] HGBA1C - Chemistry sodium, serum 130 mmol/L 462-036 9609/06/09 potassium, serum 4.0 mmol/L 3.5-5.2 chloride, serum [...] acid - Chemistry sodium, serum 130 mmol/L 017-145 3418/05/01 potassium, serum 5.2 mmol/L 3.5-5.2 chloride, serum [...] 0.40 mg/dL 0.00-1.00 cholesterol, serum 151 mg/dL 036-920 2210/05/01 triglyceride, serum, fasting 356 mg/dL 30-200 HDL [...] HGBA1C - Chemistry sodium, serum 126 mmol/L 777-450 5726/02/26 potassium, serum 4.8 mmol/L 3.5-5.2 chloride, serum [...] DIRECT - Chemistry cholesterol, serum 158 mg/dL 525-170 7753/07/11 triglyceride, serum, fasting 489 mg/dL 30-200 HDL [...] mg/dL Encounters Code Encounter Date Provider Facility CPT-31368 Level 3 Est. Patient 13:19:10 CDT [facility] CPT-32235 Level 3 Est. Patient 08:20:05 CDT Alina Castaneda MD [facility] CPT-02807 Level 3 Est. Patient 15:17:18 CDT Alina Castaneda MD PhD [facility] CPT-12007 Level 3 Est. Patient 14:25:36 DIXONAC OPERATOR [facility] CPT-37120 Level 3 Est. Patient 10:09:15 DIXONAC OPERATOR [facility] CPT-79969 Level 3 Est. Patient 21:28:43 CDT Alina Castaneda MD PhD [facility] CPT-28939 Level 3 Est. Patient 15:20:11 CDT Marvel Charles [facility] CPT-45549 Level 4 Est. Patient 19:08:12 CDT Alina Castaneda MD [facility]-29715 Level 3 Est. [facility]87068 Level 4 Est. Patient 17:48:15 CDT Alina Castaneda MD [facility]-55097 Level 3 Est. Patient 14:53:49 CDT Alina Castaneda MD [facility]-72688 Level 3 Est. Patient 09:35:16 CDT Alina Castaneda MD [facility]-11299 Level 3 Est. Patient 12:23:22 CDT Alina Castaneda MD [facility]-72133 Level 3 Est. Patient 16:19:15 CDT Alina Castaneda MD [facility]-93404 Level 3 Est. Patient 21:39:56 DIXONAC OPERATOR Alina Castaneda MD [facility]-27498 Level 4 Est. Patient 14:12:56 DIXONAC OPERATOR Alina Castaneda MD [facility]-65144 Level 2 Est. Patient 15:34:57 DIXONAC OPERATOR Alina Castaneda MD [facility]-51050 Level 3 Est. Patient 12:17:04 DIXONAC OPERATOR Alina Castaneda MD [facility]-42116 Level 3 Est. Patient 09:18:18 DIXONAC OPERATOR Marvel Charles [facility]-19936 Level 2 Est. Patient 21:50:24 CDT Alina Castaneda MD [facility]-19385 Level 3 Est. Patient 09:17:28 CDT Marvel Araceli [facility] CPT-17387 Level 4 Est. Patient 18:54:02 CDT Alina Castaneda MD [facility] CPT-71618 Level 3 Est. Patient 10:47:10 CDT Alina Castaneda MD [facility] CPT-01969 Level 3 Est. Patient 09:22:20 CDT Marvel Thurstonestela [facility] CPT-80395 Level 3 Est. Patient 16:39:43 CDT Marvel Araceli [facility] CPT-44262 Level 3 Est. Patient 16:05:16 CDT Alina Castaneda MD [facility] CPT-22995 Level 3 Est. Patient 00:29:15 CDT Alina Castaneda MD [facility] CPT-22830 Level 3 Est. Patient 10:49:22 DIXONAC OPERATOR Brooksjohn Charles [facility] CPT-49322 Level 3 Est. Patient 21:30:19 DIXONAC OPERATOR Alina Castaneda MD [facility] CPT-79614 Level 4 Est. Patient 17:04:11 DIXONAC OPERATOR Brooksjohn Charles [facility] CPT-07828 Level 3 Est. Patient 15:34:11 DIXONAC OPERATOR Marvel Charles [facility] CPT-73984 Level 2 Est. Patient 12:51:58 DIXONAC OPERATOR Alina Castaneda MD [facility] CPT-79844 Level 3 Est. Patient 13:20:01 DIXONAC OPERATOR Alina Castaneda MD [facility] CPT-11682 Level 3 Est. Patient 09:23:35 CDT Alina Castaneda MD [facility] Procedures Code Procedure Name Date Entry Date Standard Description CPT-14411 Administration single or combination vaccine inc oral 11 :49:51 CDT CPT-68803 Pneumovax 11:49:51 CDT CPT-83846 Ribs unilateral 2V 12:37:22 DIXONAC OPERATOR CPT-99542 Chest 2V Frontal and Lat 17:15:26 CDT CPT-94255 Abx/Therapy Injection 18:54:02 CDT CPT-J0696 Rocephin 1000 mg (Ceftriaxone) 16:00:32 CDT CPT-57613 Chest 2V Frontal and Lat 15:26:45 CDT CPT-38093 Chest 2V Frontal and Lat 10:23:27 CDT CPT-80627 Venipuncture Draw Fee 10:11:00 CDT CPT-54394 Administration single or combination vaccine inc oral 11 :56:38 CDT CPT-85735 Influenza split virus > age 3 11:56:38 CDT CPT-74029 Venipuncture Draw Fee 08:49:54 DIXONAC OPERATOR CPT-41139 EKG Trac and Interp 17:54:19 DIXONAC OPERATOR
--- OUTSIDE RECORDS SUMMARY | 2018-07-02 21:11 | XMS REPORT | Clinical Summary ---
[...] DIABETIC HYPOGLYCEMIA, TYPE II 250.80 Resolved Marvel MARROUQIN Diabetes mellitus with other specified manifestations, [...] four times per day INSULIN SYRINGE-NEEDLE U-100 50029801814 Active Alina Castaneda MD PhD Active CYCLOBENZAPRINE HCL 10 MG TABS 1 tablet by mouth three times daily, scheduled CYCLOBENZAPRINE HCL 44853405501 Active Alina Castaneda MD PhD Active HUMALOG 100 UNIT/ML SOLN take 40u with each meal INSULIN LISPRO (HUMAN) 82051480514 Active Alina Castaneda MD PhD Active TOLTERODINE TARTRATE 2 MG TABS 1 pill twice daily, for bladder TOLTERODINE TARTRATE 19495902792 Active Alina Castaneda MD PhD Active DETROL LA 4 MG [id number] Take 1 tablet by mouth daily TOLTERODINE TARTRATE 47529658800 No Longer Active Alina Castaneda MD PhD Active HYDROCODONE-ACETAMINOPHEN 5-325 MG TABS 2 tabs by mouth three times daily as needed for pain HYDROCODONE-ACETAMINOPHEN 36545637982 Active Alina Castaneda MD PhD Active TERESE CONTOUR TEST STRP monitor blood sugars 3x/day GLUCOSE BLOOD 48527137195 No Longer Active Alina Castaneda MD PhD Active EQL TRUETEST TEST STRP Test blood sugar TID GLUCOSE BLOOD 77475822781 No Longer Active Alina Castaneda MD PhD Active FLUTICASONE PROPIONATE 50 MCG/ACT SUSP 2 sprays each nostril qDay x 30 days FLUTICASONE PROPIONATE 28596033628 No Longer Active Alina Castaneda MD PhD Active IBUPROFEN 200 MG TABS 1 Q 6 hr. PRN IBUPROFEN 71562561275 No Longer Active Alina Castaneda MD PhD Active NIACIN ER 500 MG CR-TABS 4 qHS (for triglycerides) NIACIN 43165549528 No Longer Active Alina Castaneda MD PhD Active LEVEMIR 100 UNIT/ML SOLN Take 100u at 7-8pm INSULIN DETEMIR 98454126154 Active Alina Castaneda MD PhD Active TRUETEST TEST STRP check sugars 4x/day GLUCOSE BLOOD 81248237775 Active Alina Castaneda MD PhD Active ALFUZOSIN HCL ER 10 MG [id number] 1 tablet daily ALFUZOSIN HCL 30226848654 Active Vanessa Hickey MD Active CLONAZEPAM 1 MG TABS 1 pill by mouth three times daily CLONAZEPAM 42336721927 Active Alina Castaneda MD PhD Active LOVAZA 1 GM CAPS 4 daily (for triglycerides) [id number] ETHYL ESTERS 32014553914 Active Alina Castaneda MD PhD Active SAPHRIS 5 MG SUBL by mouth twice a day ASENAPINE MALEATE 70539709722 No Longer Active Maliheh Gurdeepglestela [facility] Active ACETAMINOPHEN 500 MG TABS 2 Q 6 hr. PRN ACETAMINOPHEN 06313809250 No Longer Active Marvel MENDOZAP Active VERAPAMIL HCL ER 120 MG [id number]-FES 1 pill by mouth twice a day, for headache prevention/control VERAPAMIL HCL 27146390528 Active Alina Castaneda MD PhD Active ORPHENADRINE CITRATE ER 100 MG [id number]-KWG 1 every 12 hr. as needed ORPHENADRINE CITRATE 27918763380 No Longer Active Alina Castaneda MD PhD Active NIACIN CR 500 MG CR-TABS 2 qHS NIACIN 57822749620 No Longer Active Alina Castaneda MD PhD Active AMOXICILLIN 500 MG CAPS 2 po BID x 10 days AMOXICILLIN 09926071440 No Longer Active Alina Castaneda MD PhD Active ZYPREXA 7.5 MG TABS 1 at HS OLANZAPINE 65394240747 Active Alina Castaneda MD PhD Active THIOTHIXENE 5 MG CAPS by mouth twice a day THIOTHIXENE 86894679366 Active Alina Castaneda MD PhD Active HYDROCODONE-ACETAMINOPHEN 7.5-325 MG TABS 1 four times a day as needed for pain HYDROCODONE-ACETAMINOPHEN 55678987553 No Longer Active Alina Castaneda MD PhD Active METFORMIN HCL ER 500 MG CZ46V-IPC Take three tablets by mouth everyday METFORMIN HCL 58137206421 Active Marvel MENDOZAP Active DOXEPIN HCL 10 MG CAPS Take 1 tablet by mouth daily DOXEPIN HCL 48737516134 No Longer Active Salina Han [facility] Active NAVANE 10 MG CAPS 1/2 tablet twice a day THIOTHIXENE No Longer Active Salina ROBBINS Active CYCLOBENZAPRINE HCL 10 MG TABS 1/2 tablet by mouth every 8 hours as needed for muscle spasms CYCLOBENZAPRINE HCL 84300527883 No Longer Active Alina Castaneda MD PhD Active BACTROBAN 2 % CREAM apply to ear and nose twice daily MUPIROCIN CALCIUM 13765584147 No Longer Active Alina Castaneda MD PhD Active HYDROCODONE-ACETAMINOPHEN 5-325 MG TABS take one tablet by mouth every four hours as needed for pain HYDROCODONE-ACETAMINOPHEN 82123804495 No Longer Active Alina Castaneda MD PhD Active ZOLPIDEM TARTRATE 10 MG TABS take at bedtime ZOLPIDEM TARTRATE 58611057761 Active Alina Castaneda MD PhD Active ZYPREXA 5 MG TABS take one tablet by mouth every evening OLANZAPINE 34105796132 No Longer Active Alina Castaneda MD PhD Active ALBUTEROL SULFATE 0.083 % NEBU SOLN one vial per nebulizer TID and PRN cough/ soa ALBUTEROL SULFATE 97922632395 No Longer Active Alina Castaneda MD PhD Active GUAIFENESIN 600 MG AT45C-XZF 1 tablet by mouth twice daily if needed for cough GUAIFENESIN 43450127122 No Longer Active Marvel MARROQUIN Active AZITHROMYCIN 500 MG SOLR 1 po q day AZITHROMYCIN 37284907063 No Longer Active Alina Castaneda MD PhD Active METOPROLOL SUCCINATE 100 MG OI85N-IRI 1 by mouth daily for blood pressure METOPROLOL SUCCINATE 27835059900 Active Alina Castaneda MD PhD Active PROMETHAZINE-CODEINE 6.25-10 MG/5ML SYRP 1 tsp po q 6 hours prn cough PROMETHAZINE-CODEINE 49071478644 No Longer Active Alina Castaneda MD PhD Active CEFDINIR 300 MG CAPS by mouth twice a day CEFDINIR 27198061027 No Longer Active Alina Castaneda MD PhD Active METFORMIN HCL 500 MG GS85S-YFX Take 3 tablets by mouth everyday METFORMIN HCL 18215292229 No Longer Active Alina Castaneda MD PhD Active LEVEMIR 100 UNIT/ML SOLN 90 units SQ qHS INSULIN DETEMIR 09994992644 No Longer Active Marvel MARROQUIN Active TOPROL XL 100 MG OG29H-BWN 1 @ HS METOPROLOL SUCCINATE 47704725578 No Longer Active Marvel MARROQUIN Active ALLOPURINOL 300 MG TABS Take one by mouth daily ALLOPURINOL 08794850209 Active Alina Castaneda MD PhD Active ZYPREXA 10 MG TABS Take one by mouth daily OLANZAPINE 23199699366 No Longer Active Alina Castaneda MD PhD Active NOVOLOG 100 UNIT/ML SOLN 40 units with every meal INSULIN ASPART 88315710524 No Longer Active Alina Castaneda MD PhD Active VERAPAMIL HCL CR 120 MG TAB CR 1 qPM VERAPAMIL HCL 22947396212 No Longer Active Salina Han [facility] Active ZYPREXA 15 MG TABS Take 1 tablet by mouth daily OLANZAPINE 11307874525 No Longer Active Marvel MARROQUIN Active LISINOPRIL 20 MG TABS 1 BID LISINOPRIL 32021908357 Active Mao Rodriguez MD Active ALBUTEROL SULFATE (2.5 MG/3ML) 0.083% NEBU 1 neb tid and prn cough ALBUTEROL SULFATE 79947257821 No Longer Active Alina Castaneda MD PhD Active FLUVOXAMINE MALEATE 100 MG TABS Take one (1) tablet by mouth am, 1/2 at noon, 1 pm FLUVOXAMINE MALEATE 37290705621 Active Alina Castaneda MD PhD Active TRAVATAN Z 0.004 % SOLN 1 gtt each eye daily TRAVOPROST 88177832016 Active Alina Mendez Active LANTUS 100 UNIT/ML SOLN 60 units sq q hs INSULIN GLARGINE 97080935279 No Longer Active Alina Mendez Active UROXATRAL 10 MG QS40P-BEL Take 1 tablet by mouth daily ALFUZOSIN HCL 82891740654 Active Tanya MARROQUIN Active ACETAMINOPHEN 500 MG TABS 2 Q 6 hr. PRN ACETAMINOPHEN 500 MG TABS 955659 ACETAMINOPHEN Inactive ALBUTEROL SULFATE 0.083 % NEBU SOLN one vial per nebulizer TID and PRN cough/ soa ALBUTEROL SULFATE 0.083 % NEBU SOLN 707406 ALBUTEROL SULFATE Inactive ALBUTEROL SULFATE (2.5 MG/3ML) 0.083% NEBU 1 neb tid and prn cough ALBUTEROL SULFATE (2.5 MG/3ML) 0.083% NEBU 182016 ALBUTEROL SULFATE Inactive AMOXICILLIN 500 MG CAPS 2 po BID x 10 days AMOXICILLIN 500 MG CAPS 136402 AMOXICILLIN Inactive CYCLOBENZAPRINE HCL 10 MG TABS 1/2 tablet by mouth every 8 hours as needed for muscle spasms CYCLOBENZAPRINE HCL 10 MG TABS 978793 CYCLOBENZAPRINE HCL Inactive DOXEPIN HCL 10 MG CAPS Take 1 tablet by mouth daily DOXEPIN HCL 10 MG CAPS 3640566 DOXEPIN HCL Inactive IBUPROFEN 200 MG TABS 1 Q 6 hr. PRN IBUPROFEN 200 MG TABS 523133 IBUPROFEN Inactive NAVANE 10 MG CAPS 1/2 [...] hours prn cough PROMETHAZINE-CODEINE 6.25-10 MG/5ML SYRP 689913 PROMETHAZINE- CODEINE Inactive VERAPAMIL HCL CR 120 MG TAB CR 1 qPM VERAPAMIL HCL CR 120 MG TAB CR VERAPAMIL HCL Inactive ZYPREXA 5 MG TABS take one tablet by mouth every evening ZYPREXA 5 MG TABS 342537 OLANZAPINE Inactive ZYPREXA 10 MG TABS Take one by mouth daily ZYPREXA 10 MG TABS 449806 OLANZAPINE Inactive AZITHROMYCIN 500 MG SOLR 1 po q day AZITHROMYCIN 500 MG SOLR 601215 AZITHROMYCIN Inactive BACTROBAN 2 % CREAM apply to ear and nose twice daily BACTROBAN 2 % CREAM 325701 MUPIROCIN CALCIUM Inactive CEFDINIR 300 MG CAPS by mouth twice a day CEFDINIR 300 MG CAPS 751130 CEFDINIR Inactive ZYPREXA 15 MG TABS Take 1 tablet by mouth daily ZYPREXA 15 MG TABS 177894 OLANZAPINE Inactive DETROL LA 4 MG FA55A-WMU Take 1 tablet by mouth daily DETROL LA 4 MG BJ29O-VPJ TOLTERODINE TARTRATE Inactive TOPROL XL 100 MG PM72Y-QRO 1 @ HS TOPROL XL 100 MG GX85B-EWB METOPROLOL SUCCINATE Inactive HYDROCODONE-ACETAMINOPHEN 5-325 MG TABS take one tablet by mouth every four hours as needed for pain HYDROCODONE-ACETAMINOPHEN 5-325 MG TABS 368704 HYDROCODONE-ACETAMINOPHEN Inactive HYDROCODONE-ACETAMINOPHEN 7.5-325 MG TABS 1 four times a day as needed for pain HYDROCODONE-ACETAMINOPHEN 7.5-325 MG TABS 999091 HYDROCODONE-ACETAMINOPHEN Inactive GUAIFENESIN 600 MG EH34B-ODM 1 tablet by mouth twice daily if needed for cough GUAIFENESIN 600 MG DK07J-UBD GUAIFENESIN Inactive ORPHENADRINE CITRATE ER 100 MG JQ52G-YQR 1 every 12 hr. as needed ORPHENADRINE CITRATE ER 100 MG GP70G-ZFM ORPHENADRINE CITRATE Inactive LEVEMIR 100 UNIT/ML SOLN 90 units SQ qHS LEVEMIR 100 UNIT/ML SOLN INSULIN DETEMIR Inactive FLUTICASONE PROPIONATE 50 MCG/ACT SUSP 2 sprays each nostril qDay x 30 days FLUTICASONE PROPIONATE 50 MCG/ACT SUSP 183797 FLUTICASONE PROPIONATE Inactive TERESE CONTOUR TEST STRP [...] Fluvirin, Fluarix, Agriflu(>=18 yo)) Fluzone (>3 yrs.) [[id number]] Influenza, seasonal, injectable pneumococcal immunization administered Pneumovax [...] acid - Chemistry sodium, serum 130 mmol/L 464-377 4719/05/01 potassium, serum 5.2 mmol/L 3.5-5.2 chloride, serum [...] 0.40 mg/dL 0.00-1.00 cholesterol, serum 151 mg/dL 846-925 4139/05/01 triglyceride, serum, fasting 356 mg/dL 30-200 HDL [...] HGBA1C - Chemistry sodium, serum 126 mmol/L 290-294 8785/02/26 potassium, serum 4.8 mmol/L 3.5-5.2 chloride, serum [...] DIRECT - Chemistry cholesterol, serum 158 mg/dL 641-083 9803/07/11 triglyceride, serum, fasting 489 mg/dL 30-200 HDL [...] mg/dL Encounters Code Encounter Date Provider Facility CPT-84008 Level 3 Est. Patient 08:20:05 CDT Alina Castaneda MD PhD [facility]-74459 Level 3 Est. Patient 15:17:18 CDT Alina Castaneda MD PhD [facility]-36027 Level 3 Est. Patient 14:25:36 [employer] [facility]-37996 Level 3 Est. Patient 10:09:15 [employer] [facility] CPT-77291 Level 3 Est. Patient 21:28:43 CDT Alina Castaneda MD PhD [facility]-93851 Level 3 Est. Patient 15:20:11 CDT [facility] Gurdeepestela [facility]-71104 Level 4 Est. Patient 19:08:12 CDT Alina Castaneda MD PhD [facility]23517 Level 3 Est. Patient 15:06:39 CDT [facility] Gurdeepestela [facility]-41969 Level 4 Est. Patient 17:48:15 CDT Alina Castaneda MD [facility]-98873 Level 3 Est. Patient 14:53:49 CDT Alina Castaneda MD [facility]-44018 Level 3 Est. Patient 09:35:16 CDT Alina Castaneda MD [facility]-91551 Level 3 Est. Patient 12:23:22 CDT Alina Castaneda MD [facility]-79266 Level 3 Est. Patient 16:19:15 CDT Alina Castaneda MD [facility]-36737 Level 3 Est. Patient 21:39:56 [employer] Alina Castaneda MD [facility]-10315 Level 4 Est. Patient 14:12:56 [employer] Alina Castaneda MD [facility]-43524 Level 2 Est. Patient 15:34:57 [employer] Alina Castaneda MD [facility]-43265 Level 3 Est. Patient 12:17:04 [employer] Alina Castaneda MD [facility]-73072 Level 3 Est. Patient 09:18:18 [employer] TE[employer]ER Marvel Charles [facility]-23390 Level 2 Est. Patient 21:50:24 CDT Alina Castaneda MD [facility]-40118 Level 3 Est. Patient 09:17:28 CDT Marvel Charles [facility]-04012 Level 4 Est. Patient 18:54:02 CDT Alina Castaneda MD [facility]-06290 Level 3 Est. Patient 10:47:10 CDT Alina Castaneda MD [facility]-72817 Level 3 Est. Patient 09:22:20 [facility] Est[facility]39[facility] CPT-31682 Level 3 Est. Patient 16:05:16 CDT Alina Castaneda MD [facility] CPT-34647 Level 3 Est. Patient 00:29:15 CDT Alina Castaneda MD [facility] CPT-25191 Level 3 Est. Patient 10:49:22 [employer] Marvel Thurstonestela [facility] CPT-32102 Level 3 Est. Patient 21:30:19 [employer] Alina Castaneda MD [facility] CPT-82213 Level 4 Est. Patient 17:04:11 [employer] TE[employer] [facility]67 Level 3 Est. Patient 15:34:11 [employer] TE[employer] [facility] CPT-15010 Level 2 Est. Patient 12:51:58 [employer] Alina Castaneda MD [facility] CPT-93904 Level 3 Est. Patient 13:20:01 [employer] Alina Castaneda MD [facility] CPT-44700 Level 3 Est. Patient 09:23:35 CDT Alina Castaneda MD [facility] Procedures Code Procedure Name Date Entry Date Standard Description CPT-18597 Administration single or combination vaccine inc oral 11 :49:51 CDT CPT-79742 Pneumovax 11:49:51 CDT CPT-61399 Ribs unilateral 2V 12:37:22 [employer] CPT-51192 Chest 2V Frontal and Lat 17:15:26 CDT CPT-25639 Abx/Therapy Injection 18:54:02 CDT CPT-J0696 Rocephin 1000 mg (Ceftriaxone) 16:00:32 CDT CPT-65351 Chest 2V Frontal and Lat 15:26:45 CDT CPT-79720 Chest 2V Frontal and Lat 10:23:27 CDT CPT-14698 Venipuncture Draw Fee 10:11:00 CDT CPT-88190 Administration single or combination vaccine inc oral 11 :56:38 CDT CPT-81345 Influenza split virus > age 3 11:56:38 CDT CPT-28164 Venipuncture Draw Fee 08:49:54 [employer] CPT-59947 EKG Trac and Interp 17:54:19 [employer]DC[employer] TE[employer]ER
--- OUTSIDE RECORDS SUMMARY | 2018-07-02 21:11 | XMS REPORT ---
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 MAGNETIC RESONANCE IMAGING BRAIN WITH AND WITHOUT [id number] HOURS A few scattered punctate areas of increased signal are seen in periventricular white matter about the lateral ventricles. This is likely due to aging. Signal intensity within the brain otherwise is normal. Flow voids of vessels are intact. After 15 mL of Magnevist contrast there is some thickening and enhancement of the meninges about the left parietal location. I suspect this is sequela of previous subdural hematoma in this area. This is not diffuse. No other abnormality is seen with normal sinuses and orbits. IMPRESSION: Mild thickening and enhancement of meninges in the left temporal location in the area where patient had previous subdural hematoma. Study is otherwise negative. DO ESTRELLITA Carter/ca 03/21/2014 11:28: / 03/21/2014 11:35:08 cc:Dr. Alina Castaneda This document has been electronically Signed by: On: DATE OF EXAM: Mar 21 2014 MRI 0036-MRI BRAIN W/WO CONTRAST : RADIOLOGY REPORT DATE OF SERVICE: 03/21/14 HISTORY: Patient has bilateral eye pain, frontal headache, confusion, dizziness. MAGNETIC RESONANCE IMAGING BRAIN WITH AND WITHOUT [id number] HOURS A few scattered punctate areas of increased signal are seen in periventricular white matter about the lateral ventricles. This is likely due to aging. Signal intensity within the brain otherwise is normal. Flow voids of vessels are intact. After 15 mL of Magnevist contrast there is some thickening and enhancement of the meninges about the left parietal location. I suspect this is sequela of previous subdural hematoma in this area. This is not diffuse. No other abnormality is seen with normal sinuses and orbits. IMPRESSION: Mild thickening and enhancement of meninges in the left temporal location in the area where patient had previous subdural hematoma. Study is otherwise negative. Chani Redman DO /isael 03/21/2014 11:28: / 03/21/2014 11:35:08 cc:Dr. Alina Castaneda This document has been electronically Signed by: CHANI REDMAN DO On: Mar 21 2014 11:50A Result Amended on 2014-03-21 at 11:50:32. Previous status was DE. History of procedures Procedure Code Code Type Description Date Performed Performing Physician [id number] CPT-4 MRI BRAIN W/O & W/DYE 03-21-2014 ALINA CASTANEDA [id number] CPT-4 YARI-BASE MR CONTRAST NOS,1ML 03-21-2014 ALINA CASTANEDA Functional status No functional or cognitive status [...]
--- OUTSIDE RECORDS SUMMARY | 2018-07-02 21:13 | XMS REPORT | Clinical Summary ---
Author Author Admin, TERELL Organization [facility] Address Unknown Phone Allergies, Adverse [...] units with other meals. INSULIN LISPRO (HUMAN) [id number] Active Marvel MARROQUIN Active BD INSULIN SYRINGE 28G X 1/2" 1 ML MISC 1 four times per day INSULIN SYRINGE-NEEDLE U-100 49119991143 Active Alina Castaneda MD PhD Active CYCLOBENZAPRINE HCL 10 MG TABS 1 tablet by mouth three times daily, scheduled CYCLOBENZAPRINE HCL 66896219966 Active Alina Castaneda MD PhD Active TOLTERODINE TARTRATE 2 MG TABS 1 pill twice daily, for bladder TOLTERODINE TARTRATE 66107365765 Active Alina Castaneda MD PhD Active DETROL LA 4 MG [id number] Take 1 tablet by mouth daily TOLTERODINE TARTRATE 46139462138 No Longer Active Alina Castaneda MD PhD Active HYDROCODONE-ACETAMINOPHEN 5-325 MG TABS 2 tabs by mouth three times daily as needed for pain HYDROCODONE-ACETAMINOPHEN 09272487398 Active Alina Castaneda MD PhD Active TERESE CONTOUR TEST STRP monitor blood sugars 3x/day GLUCOSE BLOOD 28089525929 No Longer Active Alina Castaneda MD PhD Active EQL TRUETEST TEST STRP Test blood sugar TID GLUCOSE BLOOD 08270668592 No Longer Active Alina Castaneda MD PhD Active FLUTICASONE PROPIONATE 50 MCG/ACT SUSP 2 sprays each nostril qDay x 30 days FLUTICASONE PROPIONATE 04264070022 No Longer Active Alina Castaneda MD PhD Active IBUPROFEN 200 MG TABS 1 Q 6 hr. 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 PRN ACETAMINOPHEN 61124846782 No [facility] Active VERAPAMIL HCL ER 120 MG [id number] 1 pill by mouth twice a day, for headache prevention/control VERAPAMIL HCL 97687828785 Active Alina Castaneda MD PhD Active ORPHENADRINE CITRATE ER 100 MG HC34B-MFQ 1 every 12 hr. as needed ORPHENADRINE CITRATE 07903575680 No Longer Active Alina Castaneda MD PhD Active NIACIN CR 500 MG CR-TABS 2 qHS NIACIN 84564309110 No Longer Active Alina Castaneda MD PhD Active AMOXICILLIN 500 MG CAPS 2 po BID x 10 days AMOXICILLIN 51423780770 No Longer Active Alina Castaneda MD PhD Active ZYPREXA 7.5 MG TABS 1 at HS OLANZAPINE 31763572552 Active Alina Castaneda MD PhD Active THIOTHIXENE 5 MG CAPS by mouth twice a day THIOTHIXENE 02852629704 Active Alina Castaneda MD PhD Active HYDROCODONE-ACETAMINOPHEN 7.5-325 MG TABS 1 four times a day as needed for pain HYDROCODONE-ACETAMINOPHEN 35339599489 No Longer Active Alina Castaneda MD PhD Active METFORMIN HCL ER 500 MG [id number] Take three tablets by mouth everyday METFORMIN HCL 78211432785 Active Marvel MENDOZAP Active DOXEPIN HCL 10 MG CAPS Take 1 tablet by mouth daily DOXEPIN HCL 22824951155 No Longer Active Salina ROJAS Active NAVANE 10 MG CAPS 1/2 tablet twice a day THIOTHIXENE No Longer Active Salina ROBBINSA Active CYCLOBENZAPRINE HCL 10 MG TABS 1/2 tablet by mouth every 8 hours as needed for muscle spasms CYCLOBENZAPRINE HCL 63047614098 No Longer Active Alina Castaneda MD PhD Active BACTROBAN 2 % CREAM apply to ear and nose twice daily MUPIROCIN CALCIUM 65762014115 No Longer Active Alina Castaneda MD PhD Active HYDROCODONE-ACETAMINOPHEN 5-325 MG TABS take one tablet by mouth every four hours as needed for pain HYDROCODONE-ACETAMINOPHEN 28299879411 No Longer Active Alina Castaneda MD PhD Active ZOLPIDEM TARTRATE 10 MG TABS take at bedtime ZOLPIDEM TARTRATE 20669069033 Active Alina Castaneda MD PhD Active ZYPREXA 5 MG TABS take one tablet by mouth every evening OLANZAPINE 34534137202 No Longer Active Alina Castaneda MD PhD Active ALBUTEROL SULFATE 0.083 % NEBU SOLN one vial per nebulizer TID and PRN cough/ soa ALBUTEROL SULFATE 58693673327 No Longer Active Alina Castaneda MD PhD Active GUAIFENESIN 600 MG AX19B-YXK 1 tablet by mouth twice daily if needed for cough GUAIFENESIN 27843678458 No Longer Active 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 AZITHROMYCIN 500 MG SOLR 1 po q day AZITHROMYCIN 45586215401 No Longer Active Alina Castaneda MD PhD Active METOPROLOL SUCCINATE 100 MG [id number]-GHY 1 by mouth daily for blood pressure METOPROLOL SUCCINATE 92303336406 Active Alina Castaneda MD PhD Active PROMETHAZINE-CODEINE 6.25-10 MG/5ML SYRP 1 tsp po q 6 hours prn cough PROMETHAZINE-CODEINE 82388848602 No Longer Active Alina Castaneda MD PhD Active CEFDINIR 300 MG CAPS by mouth twice a day CEFDINIR 81011236977 No Longer Active Alina Castaneda MD PhD Active METFORMIN HCL 500 MG [id number]-ELN Take 3 tablets by mouth everyday METFORMIN HCL 01843130852 No Longer Active Alina Castaneda MD PhD Active LEVEMIR 100 UNIT/ML SOLN 90 units SQ qHS INSULIN DETEMIR 33905955238 No Longer Active Marvel MARROQUIN Active TOPROL XL 100 MG OU86A-HUT 1 @ HS METOPROLOL SUCCINATE 12852247228 No Longer Active Marvel MARROQUIN Active ALLOPURINOL 300 MG TABS Take one by mouth daily ALLOPURINOL 62092086488 Active Alina Castaneda MD PhD Active ZYPREXA 10 MG TABS Take one by mouth daily OLANZAPINE 57374763095 No Longer Active Alina Castaneda MD PhD Active NOVOLOG 100 UNIT/ML SOLN 40 units with every meal INSULIN ASPART 52605702415 No Longer Active Alina Castaneda MD PhD Active VERAPAMIL HCL CR 120 MG TAB CR 1 qPM VERAPAMIL HCL 01453701634 No Longer Active Salina Emely [facility] Active ZYPREXA 15 MG TABS Take 1 tablet by mouth daily OLANZAPINE 30366189607 No Longer Active Marvel MARROQUIN Active LISINOPRIL 20 MG TABS 1 BID LISINOPRIL 79880597543 Active Mao Rodriguez MD Active ALBUTEROL SULFATE (2.5 MG/3ML) 0.083% NEBU 1 neb tid and prn cough ALBUTEROL SULFATE 12646142893 No Longer Active Alina Castaneda MD PhD Active FLUVOXAMINE MALEATE 100 MG TABS Take one (1) tablet by mouth am, 1/2 at noon, 1 pm FLUVOXAMINE MALEATE 14161428783 Active Alina Castaneda MD PhD Active TRAVATAN Z 0.004 % SOLN 1 gtt each eye daily TRAVOPROST 98033907181 Active Alina Mendez Active LANTUS 100 UNIT/ML SOLN 60 units sq q hs INSULIN GLARGINE 98770110276 No Longer Active Alina Mendez Active UROXATRAL 10 MG EO93R-SHK Take 1 tablet by mouth daily ALFUZOSIN HCL 16100360102 Active Tanya MARROQUIN Active ALBUTEROL SULFATE (2.5 MG/3ML) 0.083% NEBU 1 neb tid and prn cough ALBUTEROL SULFATE (2.5 MG/3ML) 0.083% NEBU 786669 ALBUTEROL SULFATE Inactive ZYPREXA 15 MG TABS Take 1 tablet by mouth daily ZYPREXA 15 MG TABS 938946 OLANZAPINE Inactive VERAPAMIL HCL CR 120 MG TAB CR 1 qPM VERAPAMIL HCL CR 120 MG TAB CR VERAPAMIL HCL Inactive ZYPREXA 10 MG TABS Take one by mouth daily ZYPREXA 10 MG TABS 161857 OLANZAPINE Inactive TOPROL XL 100 MG [id number] 1 @ HS TOPROL XL 100 MG [id number]-WUV METOPROLOL SUCCINATE Inactive LEVEMIR 100 UNIT/ML SOLN 90 units SQ qHS LEVEMIR 100 UNIT/ML SOLN INSULIN DETEMIR Inactive PROMETHAZINE-CODEINE 6.25-10 MG/5ML SYRP 1 tsp po q 6 hours prn cough PROMETHAZINE-CODEINE 6.25-10 MG/5ML SYRP 386632 PROMETHAZINE- CODEINE Inactive GUAIFENESIN 600 MG [id number]-TGW 1 tablet by mouth twice daily if needed for cough GUAIFENESIN 600 MG [id number] GUAIFENESIN Inactive ALBUTEROL SULFATE 0.083 % NEBU SOLN one vial per nebulizer TID and PRN cough/ soa ALBUTEROL SULFATE 0.083 % NEBU SOLN 381263 ALBUTEROL SULFATE Inactive ZYPREXA 5 MG TABS take one tablet by mouth every evening ZYPREXA 5 MG TABS 224160 OLANZAPINE Inactive HYDROCODONE-ACETAMINOPHEN 5-325 MG TABS take one tablet by mouth every four hours as needed for pain HYDROCODONE-ACETAMINOPHEN 5-325 MG TABS 211823 HYDROCODONE-ACETAMINOPHEN Inactive BACTROBAN 2 % CREAM apply to ear and nose twice daily BACTROBAN 2 % CREAM 781198 MUPIROCIN CALCIUM Inactive CYCLOBENZAPRINE HCL 10 MG TABS 1/2 tablet by mouth every 8 hours as needed for muscle spasms CYCLOBENZAPRINE HCL 10 MG TABS 608627 CYCLOBENZAPRINE HCL Inactive NAVANE 10 MG CAPS 1/2 tablet twice a day NAVANE 10 MG CAPS THIOTHIXENE Inactive DOXEPIN HCL 10 MG CAPS Take 1 tablet by mouth daily DOXEPIN HCL 10 MG CAPS 1916160 DOXEPIN HCL Inactive HYDROCODONE-ACETAMINOPHEN 7.5-325 MG TABS 1 four times a day as needed for pain HYDROCODONE-ACETAMINOPHEN 7.5-325 MG TABS 936203 HYDROCODONE-ACETAMINOPHEN Inactive NIACIN CR 500 MG CR-TABS 2 qHS NIACIN CR 500 MG CR- TABS NIACIN Inactive ORPHENADRINE CITRATE ER 100 MG OM16E-HGO 1 every 12 hr. as needed ORPHENADRINE CITRATE ER 100 MG [id number]-LEG ORPHENADRINE CITRATE Inactive ACETAMINOPHEN 500 MG TABS 2 Q 6 hr. PRN ACETAMINOPHEN 500 MG TABS 326893 ACETAMINOPHEN Inactive SAPHRIS 5 MG SUBL by mouth twice a day SAPHRIS 5 MG SUBL ASENAPINE MALEATE Inactive NIACIN ER 500 MG CR-TABS 4 qHS (for triglycerides) NIACIN ER 500 MG CR-TABS NIACIN Inactive IBUPROFEN 200 MG TABS 1 Q 6 hr. PRN IBUPROFEN 200 MG TABS 622697 IBUPROFEN Inactive FLUTICASONE PROPIONATE 50 MCG/ACT SUSP 2 sprays each nostril qDay x 30 days FLUTICASONE PROPIONATE 50 MCG/ACT SUSP 999707 FLUTICASONE PROPIONATE Inactive EQL TRUETEST TEST STRP Test blood sugar TID EQL TRUETEST TEST STRP GLUCOSE BLOOD Inactive TERESE CONTOUR TEST STRP monitor blood sugars 3x/day TERESE CONTOUR TEST STRP GLUCOSE BLOOD Inactive DETROL LA 4 MG [id number] Take 1 tablet by mouth daily DETROL LA 4 MG SK90H-IZW TOLTERODINE TARTRATE Inactive CEFDINIR 300 MG CAPS by mouth twice a day CEFDINIR 300 MG CAPS 505778 CEFDINIR Inactive AZITHROMYCIN 500 MG SOLR 1 po q day AZITHROMYCIN 500 MG SOLR 262415 AZITHROMYCIN Inactive AMOXICILLIN 500 MG CAPS 2 po BID x 10 days AMOXICILLIN 500 MG CAPS 818944 AMOXICILLIN Inactive Immunizations Vaccine Administration Date Value [...] Fluvirin, Fluarix, Agriflu(>=18 yo)) Fluzone (>3 yrs.) [FVR633] Influenza, seasonal, injectable pneumococcal immunization administered Pneumovax [...] HGBA1C - Chemistry sodium, serum 130 mmol/L 402-870 7830/06/09 potassium, serum 4.0 mmol/L 3.5-5.2 chloride, serum [...] 6.0 mg/dL 2.6-7.2 sodium, serum 130 mmol/L 055-879 7361/05/01 potassium, serum 5.2 mmol/L 3.5-5.2 chloride, serum [...] 0.40 mg/dL 0.00-1.00 cholesterol, serum 151 mg/dL 261-987 2619/05/01 triglyceride, serum, fasting 356 mg/dL 30-200 HDL [...] HGBA1C - Chemistry sodium, serum 126 mmol/L 900-799 7183/02/26 potassium, serum 4.8 mmol/L 3.5-5.2 chloride, serum [...] DIRECT - Chemistry cholesterol, serum 158 mg/dL 945-384 8858/07/11 triglyceride, serum, fasting 489 mg/dL 30-200 HDL [...] mg/dL Encounters Code Encounter Date Provider Facility CPT-13923 Level 3 Est. Patient 13:19:10 CDT [facility] Level 3 Est. Patient 08:20:05 CDT Alina Castaneda MD [facility]-74189 Level 3 Est. Patient 15:17:18 CDT Alina Castaneda MD PhD [facility] [place]-48292 Level 3 Est. Patient 14:25:36 NURSE PRACTITIONER ADULT [facility] [place] CPT-56090 Level 3 Est. Patient 10:09:15 NURSE PRACTITIONER ADULT [facility] [place] CPT-25400 Level 3 Est. Patient 21:28:43 CDT Alina Castaneda MD [facility]-13574 Level 3 Est. Patient 15:20:11 CDT [facility] [place] CPT-96291 Level 4 Est. Patient 19:08:12 CDT Alina Castaneda MD PhD [facility] [place]49662 Level 3 Est. Patient 15:06:39 CDT [facility]-04327 Level 4 Est. Patient 17:48:15 CDT Alina Castaneda MD PhD [facility] [place]57276 Level 3 Est. Patient 14:53:49 CDT Alina Castaneda MD [facility]-38095 Level 3 Est. Patient 09:35:16 CDT Alina Castaneda MD [facility]-10816 Level 3 Est. Patient 12:23:22 CDT Alina Castaneda MD [facility]30585 Level 3 Est. Patient 16:19:15 CDT Alina Castaneda MD [facility]81998 Level 3 Est. Patient 21:39:56 NURSE PRACTITIONER ADULT Alina Castaneda MD [facility]-72078 Level 4 Est. Patient 14:12:56 NURSE PRACTITIONER ADULT Alina Castaneda MD [facility] [facility]-91855 Level 2 Est. Patient 15:34:57 NURSE PRACTITIONER ADULT Alina Castaneda MD [facility]-29595 Level 3 Est. Patient 12:17:04 NURSE PRACTITIONER ADULT Alina Castaneda MD [facility]-96457 Level 3 Est. Patient 09:18:18 NURSE PRACTITIONER ADULT Marvel Charles [facility]-90898 Level 2 Est. Patient 21:50:24 CDT Alina Castaneda MD [facility]-51767 Level 3 Est. Patient 09:17:28 CDT Marvel Charles [facility]-61709 Level 4 Est. Patient 18:54:02 CDT Alina Castaneda MD [facility]-32565 Level 3 Est. Patient 10:47:10 CDT Alina Castaneda MD [facility]41192 Level 3 Est. Patient 09:22:20 CDT Marvel Charles [facility]-52894 Level 3 Est. Patient 16:39:43 [facility] CPT-70389 Level 3 Est. Patient 16:05:16 CDT Alina Castaneda MD [facility] CPT-85401 Level 3 Est. Patient 00:29:15 CDT Alina Castaneda MD [facility]-96179 Level 3 Est. Patient 10:49:22 NURSE PRACTITIONER ADULT Marvel [facility] CPT-73998 Level 3 Est. Patient 21:30:19 NURSE PRACTITIONER ADULT Alina Castaneda MD [facility] CPT-64888 Level 4 Est. Patient 17:04:11 [facility] Level 3 Est. Patient 15:34:11 NURSE PRACTITIONER ADULT [facility] CPT-05968 Level 2 Est. Patient 12:51:58 NURSE PRACTITIONER ADULT Alina Castaneda MD [facility] CPT-94919 Level 3 Est. Patient 13:20:01 NURSE PRACTITIONER ADULT Alina Castaneda MD [facility] CPT-01497 Level 3 Est. Patient 09:23:35 CDT Alina Castaneda MD [facility] Procedures Code Procedure Name Date Entry Date Standard Description CPT-19207 Administration single or combination vaccine inc oral 11 :49:51 CDT CPT-58950 Pneumovax 11:49:51 CDT CPT-57999 Ribs unilateral 2V 12:37:22 NURSE PRACTITIONER ADULT CPT-17186 Chest 2V Frontal and Lat 17:15:26 CDT CPT-41934 Abx/Therapy Injection 18:54:02 CDT CPT-J0696 Rocephin 1000 mg (Ceftriaxone) 16:00:32 CDT CPT-70402 Chest 2V Frontal and Lat 15:26:45 CDT CPT-93819 Chest 2V Frontal and Lat 10:23:27 CDT CPT-71216 Venipuncture Draw Fee 10:11:00 CDT CPT-25366 Administration single or combination vaccine inc oral 11 :56:38 CDT CPT-74424 Influenza split virus > age 3 11:56:38 CDT CPT-62757 Venipuncture Draw Fee 08:49:54 NURSE PRACTITIONER ADULT CPT-94013 EKG Trac and Interp 17:54:19 NURSE PRACTITIONER ADULT
--- OUTSIDE RECORDS SUMMARY | 2018-07-02 21:14 | XMS REPORT | Clinical Summary ---
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 Active Alina Castaneda MD PhD Recurrent isolated sleep paralysis SPECIAL SCREENING FOR MALIGNANT NEOPLASM OF PROSTATE V76.44 Resolved Alina Castaneda MD PhD Screening for malignant neoplasms of prostate Hypoglycemia 251.2 Active Marvel MARROQUIN Hypoglycemia, unspecified Diabetes mellitus, type II 250.00 Active Maliheh 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 ALIGNING CHECKER Diabetes mellitus without mention of complication, type II or unspecified type, not stated as uncontrolled WOUND, OPEN, NOSE ICD-873.20 Inactive Alina Castaneda MD PhD HYPERTENSION ICD-401.9 Inactive Alina Castaneda MD PhD URI ICD-465.9 Inactive Alina Castaneda MD PhD CHEST PAIN ICD-786.50 Inactive Alina Castaneda MD PhD FATIGUE ICD-780.79 Inactive Alina Castaneda MD PhD DIABETES MELLITUS, TYPE II, UNCONTROLLED ICD-250.02 Inactive Marvel MENDOZAP UNSPECIFIED TACHYCARDIA ICD-785.0 Inactive Alina Castaneda MD PhD PROBLEMS RELATED TO HIGH-RISK SEXUAL BEHAVIOR ICD-V69.2 Inactive Alina Castaneda MD PhD CHEST COUGH ICD-786.2 Inactive Alina Castaneda MD PhD SINUSITIS, ACUTE ICD-461.9 Inactive Alina Castaneda MD PhD BRONCHITIS, ACUTE ICD-466.0 Inactive Alina Castaneda MD PhD FH STROKE ICD-V17.1 Inactive Marvel MARROQUIN DIABETES, TYPE 2 ICD-250.00 Inactive Alina Castaneda MD PhD SKIN LESION ICD-709.9 Inactive Alina Castaneda MD PhD PNEUMONIA, ORGANISM UNSPECIFIED ICD-486 Inactive Alina Castaneda MD PhD DIABETIC HYPOGLYCEMIA, TYPE II ICD-250.80 Inactive Marvel 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 Inactive Alina Castaneda MD PhD SPECIAL SCREENING FOR MALIGNANT NEOPLASM OF PROSTATE ICD-V76.44 Roro Castaneda MD PhD RIB PAIN, RIGHT SIDED ICD-786.50 Inactive Alina Castaneda MD PhD SINUSITIS, ACUTE ICD-461.9 Inactive Alina Castaneda MD PhD Medication List Medication Instructions Start Date Stop Date Generic Name NDC Status Provider Patient Instruction MORPHINE SULFATE 30 MG TABS 1 pill by mouth nightly, for pain MORPHINE SULFATE 35463145543 Active Alina Castaneda MD PhD Active LATUDA 80 MG TABS 1 tab by mouth every evening LURASIDONE HCL 52152699449 Active Alina Castaneda MD PhD Active UROXATRAL 10 MG FY27I-JQO Take 1 tablet by mouth daily ALFUZOSIN HCL 61489982448 No Longer Active Alina Castaneda MD PhD Active THIOTHIXENE 5 MG CAPS by mouth twice a day THIOTHIXENE 74079035187 No Longer Active Alina Castaneda MD PhD Active ZYPREXA 7.5 MG TABS 1 at HS OLANZAPINE 63143709021 No Longer Active Alina Castaneda MD PhD Active HUMALOG 100 UNIT/ML SOLN Take 20 units with breakfast, 10u with lunch and suppetr. INSULIN LISPRO (HUMAN) 98567227449 Active Maliheh Ziglari ALIGNING CHECKER Active LEVEMIR 100 UNIT/ML SOLN Take 70 u at 7-8pm INSULIN DETEMIR 20643797015 Active Maliheh Ziglari ALIGNING CHECKER Active BD INSULIN SYRINGE 28G X 1/2" 1 ML MISC 1 four times per day INSULIN SYRINGE-NEEDLE U-100 36697723165 Active Maliheh Ziglari ALIGNING CHECKER Active CYCLOBENZAPRINE HCL 10 MG TABS 1 tablet by mouth three times daily, scheduled CYCLOBENZAPRINE HCL 86634992418 Active Alina Castaneda MD PhD Active TOLTERODINE TARTRATE 2 MG TABS 1 pill twice daily, for bladder TOLTERODINE TARTRATE 09523237515 Active Alina Castaneda MD PhD Active DETROL LA 4 MG [id number] Take 1 tablet by mouth daily TOLTERODINE TARTRATE 42586904131 No Longer Active Alina Castaneda MD PhD Active HYDROCODONE-ACETAMINOPHEN 5-325 MG TABS 2 tabs by mouth three times daily as needed for pain HYDROCODONE-ACETAMINOPHEN 53754407518 Active Alina Castaneda MD PhD Active TERESE CONTOUR TEST STRP monitor blood sugars 3x/day GLUCOSE BLOOD 65352888381 No Longer Active Alina Castaneda MD PhD Active EQL TRUETEST TEST STRP Test blood sugar TID GLUCOSE BLOOD 48387050552 No Longer Active Alina Castaneda MD PhD Active FLUTICASONE PROPIONATE 50 MCG/ACT SUSP 2 sprays each nostril qDay x 30 days FLUTICASONE PROPIONATE 02704590042 No Longer Active Alina Castaneda MD PhD Active IBUPROFEN 200 MG TABS 1 Q 6 hr. PRN IBUPROFEN 38495210504 No Longer Active Alina Castaneda MD PhD Active NIACIN ER 500 MG CR-TABS 4 qHS (for triglycerides) NIACIN 80719357208 No Longer Active Alina Castaneda MD PhD Active TRUETEST TEST STRP check sugars 4x/day GLUCOSE BLOOD 86887884727 Active Marvel Mackenzieglari ALIGNING CHECKER Active ALFUZOSIN HCL ER 10 MG [id number] 1 tablet daily ALFUZOSIN HCL 20285932972 Active Vanessa Hickey MD Active CLONAZEPAM 1 MG TABS 1 pill by mouth three times daily CLONAZEPAM 61169170226 Active Alina Castaneda MD PhD Active LOVAZA 1 GM CAPS 4 daily (for triglycerides) DJGRT-1-LSTU ETHYL ESTERS 53368504798 Active Alina Castaneda MD PhD Active SAPHRIS 5 MG SUBL by mouth twice a day ASENAPINE MALEATE 38270310536 No Longer Active Marvel MENDOZAP Active ACETAMINOPHEN 500 MG TABS 2 Q 6 hr. PRN ACETAMINOPHEN 54279659479 No Longer Active Marvel Thurstonari ALIGNING CHECKER Active VERAPAMIL HCL ER 120 MG [id number]-PIC 1 pill by mouth twice a day, for headache prevention/control VERAPAMIL HCL 47712439265 Active Alina Castaneda MD PhD Active ORPHENADRINE CITRATE ER 100 MG UH70Y-COH 1 every 12 hr. as needed ORPHENADRINE CITRATE 49167377478 No Longer Active Alina Castaneda MD PhD Active NIACIN CR 500 MG CR-TABS 2 qHS NIACIN 10826280405 No Longer Active Alina Castaneda MD PhD Active AMOXICILLIN 500 MG CAPS 2 po BID x 10 days AMOXICILLIN 20859240792 No Longer Active Alina Castaneda MD PhD Active HYDROCODONE-ACETAMINOPHEN 7.5-325 MG TABS 1 four times a day as needed for pain HYDROCODONE-ACETAMINOPHEN 97391912270 No Longer Active Alina Castaneda MD PhD Active METFORMIN HCL ER 500 MG [id number] Take three tablets by mouth everyday METFORMIN HCL 56365413337 Active Alina Castaneda MD PhD Active DOXEPIN HCL 10 MG CAPS Take 1 tablet by mouth daily DOXEPIN HCL 72667314135 No Longer Active Salina Han [facility] Active NAVANE 10 MG CAPS 1/2 tablet twice a day THIOTHIXENE No Longer Active Salina Han [facility] Active CYCLOBENZAPRINE HCL 10 MG TABS 1/2 tablet by mouth every 8 hours as needed for muscle spasms CYCLOBENZAPRINE HCL 64184706233 No Longer Active Alina Castaneda MD PhD Active BACTROBAN 2 % CREAM apply to ear and nose twice daily MUPIROCIN CALCIUM 04497096946 No Longer Active Alina Castaneda MD PhD Active HYDROCODONE-ACETAMINOPHEN 5-325 MG TABS take one tablet by mouth every four hours as needed for pain HYDROCODONE-ACETAMINOPHEN 64847494124 No Longer Active Alina Castaneda MD PhD Active ZOLPIDEM TARTRATE 10 MG TABS take at bedtime ZOLPIDEM TARTRATE 48301705699 Active Alina Castaneda MD PhD Active ZYPREXA 5 MG TABS take one tablet by mouth every evening OLANZAPINE 63952875240 No Longer Active Alina Castaneda MD PhD Active ALBUTEROL SULFATE 0.083 % NEBU SOLN one vial per nebulizer TID and PRN cough/ soa ALBUTEROL SULFATE 21641780525 No Longer Active Alina Castaneda MD PhD Active GUAIFENESIN 600 MG CN10P-GLC 1 tablet by mouth twice daily if needed for cough GUAIFENESIN 68457416460 No Longer Active Marvel MARROQUIN Active AZITHROMYCIN 500 MG SOLR 1 po q day AZITHROMYCIN 87637010564 No Longer Active Alina Castaneda MD PhD Active METOPROLOL SUCCINATE 100 MG [id number]-MKD 1 by mouth daily for blood pressure METOPROLOL SUCCINATE 12283367973 Active Alina Castaneda MD PhD Active PROMETHAZINE-CODEINE 6.25-10 MG/5ML SYRP 1 tsp po q 6 hours prn cough PROMETHAZINE-CODEINE 58373157793 No Longer Active Alina Castaneda MD PhD Active CEFDINIR 300 MG CAPS by mouth twice a day CEFDINIR 40678905511 No Longer Active Alina Castaneda MD PhD Active METFORMIN HCL 500 MG CD86D-VGT Take 3 tablets by mouth everyday METFORMIN HCL 13986258599 No Longer Active Alina Castaneda MD PhD Active LEVEMIR 100 UNIT/ML SOLN 90 units SQ qHS INSULIN DETEMIR 42557401809 No Longer Active Marvel MARROQUIN Active TOPROL XL 100 MG [id number]-YIG 1 @ HS METOPROLOL SUCCINATE 51028455861 No Longer Active Marvel MARROQUIN Active ALLOPURINOL 300 MG TABS Take one by mouth daily ALLOPURINOL 50151391616 Active Alina Castaneda MD PhD Active ZYPREXA 10 MG TABS Take one by mouth daily OLANZAPINE 16068522172 No Longer Active Alina Castaneda MD PhD Active NOVOLOG 100 UNIT/ML SOLN 40 units with every meal INSULIN ASPART 81271353581 No Longer Active Alina Castaneda MD PhD Active VERAPAMIL HCL CR 120 MG TAB CR 1 qPM VERAPAMIL HCL 38883079444 No Longer Active Salina Han [facility] Active ZYPREXA 15 MG TABS Take 1 tablet by mouth daily OLANZAPINE 79660589845 No Longer Active Marvel MARROQUIN Active LISINOPRIL 20 MG TABS 1 BID LISINOPRIL 56880877346 Active Alina Castaneda MD PhD Active ALBUTEROL SULFATE (2.5 MG/3ML) 0.083% NEBU 1 neb tid and prn cough ALBUTEROL SULFATE 34345556175 No Longer Active Alina Castaneda MD PhD Active FLUVOXAMINE MALEATE 100 MG TABS Take one (1) tablet by mouth am, 05/25 at noon, 1 pm FLUVOXAMINE MALEATE 63302355538 Active Alina Castaneda MD PhD Active TRAVATAN Z 0.004 % SOLN 1 gtt each eye daily TRAVOPROST 08598917758 Active CRYSTAL Suarez Active LANTUS 100 UNIT/ML SOLN 60 units sq q hs INSULIN GLARGINE 27733488817 No Longer Active CRYSTAL Suarez Active ALBUTEROL SULFATE (2.5 MG/3ML) 0.083% NEBU 1 neb tid and prn cough ALBUTEROL SULFATE (2.5 MG/3ML) 0.083% NEBU 615756 ALBUTEROL SULFATE Inactive ZYPREXA 15 MG TABS Take 1 tablet by mouth daily ZYPREXA 15 MG TABS 675879 OLANZAPINE Inactive VERAPAMIL HCL CR 120 MG TAB CR 1 qPM VERAPAMIL HCL CR 120 MG TAB CR VERAPAMIL HCL Inactive ZYPREXA 10 MG TABS Take one by mouth daily ZYPREXA 10 MG TABS 734305 OLANZAPINE Inactive TOPROL XL 100 MG [id number]-PHF 1 @ HS TOPROL XL 100 MG [id number]-WOK METOPROLOL SUCCINATE Inactive LEVEMIR 100 UNIT/ML SOLN 90 units SQ qHS LEVEMIR 100 UNIT/ML SOLN INSULIN DETEMIR Inactive PROMETHAZINE-CODEINE 6.25-10 MG/5ML SYRP 1 tsp po q 6 hours prn cough PROMETHAZINE-CODEINE 6.25-10 MG/5ML SYRP 581706 PROMETHAZINE- CODEINE Inactive GUAIFENESIN 600 MG NA91E-TPV 1 tablet by mouth twice daily if needed for cough GUAIFENESIN 600 MG SK86R-QYY GUAIFENESIN Inactive ALBUTEROL SULFATE 0.083 % NEBU SOLN one vial per nebulizer TID and PRN cough/ soa ALBUTEROL SULFATE 0.083 % [facility] 917174 ALBUTEROL SULFATE Inactive ZYPREXA 5 MG TABS take one tablet by mouth every evening ZYPREXA 5 MG TABS 669100 OLANZAPINE Inactive HYDROCODONE-ACETAMINOPHEN 5-325 MG TABS take one tablet by mouth every four hours as needed for pain HYDROCODONE-ACETAMINOPHEN 5-325 MG TABS 177913 HYDROCODONE-ACETAMINOPHEN Inactive BACTROBAN 2 % CREAM apply to ear and nose twice daily BACTROBAN 2 % CREAM 696768 MUPIROCIN CALCIUM Inactive CYCLOBENZAPRINE HCL 10 MG TABS 1/2 tablet by mouth every 8 hours as needed for muscle spasms CYCLOBENZAPRINE HCL 10 MG TABS 507090 CYCLOBENZAPRINE HCL Inactive NAVANE 10 MG CAPS 1/2 tablet twice a day NAVANE 10 MG CAPS THIOTHIXENE Inactive DOXEPIN HCL 10 MG CAPS Take 1 tablet by mouth daily DOXEPIN HCL 10 MG CAPS 0993068 DOXEPIN HCL Inactive HYDROCODONE-ACETAMINOPHEN 7.5-325 MG TABS 1 four times a day as needed for pain HYDROCODONE-ACETAMINOPHEN 7.5-325 MG TABS 686555 HYDROCODONE-ACETAMINOPHEN Inactive NIACIN CR 500 MG CR-TABS 2 qHS NIACIN CR 500 MG CR- TABS NIACIN Inactive ORPHENADRINE CITRATE ER 100 MG [id number] 1 every 12 hr. as needed ORPHENADRINE CITRATE ER 100 MG [id number]-JMP ORPHENADRINE CITRATE Inactive ACETAMINOPHEN 500 MG TABS 2 Q 6 hr. PRN ACETAMINOPHEN 500 MG TABS 251022 ACETAMINOPHEN Inactive SAPHRIS 5 MG SUBL by mouth twice a day SAPHRIS 5 MG SUBL ASENAPINE MALEATE Inactive NIACIN ER 500 MG CR-TABS 4 qHS (for triglycerides) NIACIN ER 500 MG CR-TABS NIACIN Inactive IBUPROFEN 200 MG TABS 1 Q 6 hr. PRN IBUPROFEN 200 MG TABS 337850 IBUPROFEN Inactive FLUTICASONE PROPIONATE 50 MCG/ACT SUSP 2 sprays each nostril qDay x 30 days FLUTICASONE PROPIONATE 50 MCG/ACT SUSP 057749 FLUTICASONE PROPIONATE Inactive EQL TRUETEST TEST STRP Test blood sugar TID EQL TRUETEST TEST STRP GLUCOSE BLOOD Inactive TERESE CONTOUR TEST STRP monitor blood sugars 3x/day TERESE CONTOUR TEST STRP GLUCOSE BLOOD Inactive DETROL LA 4 MG [id number] Take 1 tablet by mouth daily DETROL LA 4 MG [id number]-SWZ TOLTERODINE TARTRATE Inactive ZYPREXA 7.5 MG TABS 1 at HS ZYPREXA 7.5 MG TABS 603748 OLANZAPINE Inactive THIOTHIXENE 5 MG CAPS by mouth twice a day THIOTHIXENE 5 MG CAPS 605701 THIOTHIXENE Inactive UROXATRAL 10 MG HS36F-YRY Take 1 tablet by mouth daily UROXATRAL 10 MG BT39M-RZP ALFUZOSIN HCL Inactive CEFDINIR 300 MG CAPS by mouth twice a day CEFDINIR 300 MG CAPS 903603 CEFDINIR Inactive AZITHROMYCIN 500 MG SOLR 1 po q day AZITHROMYCIN 500 MG SOLR 640323 AZITHROMYCIN Inactive AMOXICILLIN 500 MG CAPS 2 po BID x 10 days AMOXICILLIN 500 MG CAPS 815631 AMOXICILLIN Inactive Immunizations Vaccine Administration Date Value [...] Fluvirin, Fluarix, Agriflu(>=18 yo)) Fluzone (>3 yrs.) [[id number]] Influenza, seasonal, injectable pneumococcal immunization administered Pneumovax [...] HGBA1C - Chemistry sodium, serum 130 mmol/L 383-935 0478/06/09 potassium, serum 4.0 mmol/L 3.5-5.2 chloride, serum [...] 6.0 mg/dL 2.6-7.2 sodium, serum 130 mmol/L 995-107 2001/05/01 potassium, serum 5.2 mmol/L 3.5-5.2 chloride, serum [...] 0.40 mg/dL 0.00-1.00 cholesterol, serum 151 mg/dL 242-031 8592/05/01 triglyceride, serum, fasting 356 mg/dL 30-200 HDL [...] HGBA1C - Chemistry sodium, serum 126 mmol/L 588-073 5770/02/26 potassium, serum 4.8 mmol/L 3.5-5.2 chloride, serum [...] mg/dL Encounters Code Encounter Date Provider Facility CPT-62833 Level 3 Est. Patient 09:32:11 CDT Maliheh Ziglari [facility]-45900 Level 3 Est. Patient 12:02:49 CDT Alina Castaneda MD [facility]-68200 Level 3 Est. Patient 19:17:33 CDT Alina Castaneda MD [facility]11632 Level 3 Est. Patient 13:19:10 CDT Marvel Charles [facility]-53238 Level 3 Est. Patient 08:20:05 CDT Alina Castaneda MD [facility]74286 Level 3 Est. Patient 15:17:18 CDT Alina Castaneda MD [facility]-91587 Level 3 Est. Patient 14:25:36 MARINE [employer]ER[employer] TECHNICIAN Marvel Charles [facility]-65937 Level 3 Est. Patient 10:09:15 MARINE FISHERIES TECHNICIAN Marvel Charles [facility]-66340 Level 3 Est. Patient 21:28:43 CDT Alina Castaneda MD [facility]-82139 Level 3 Est. Patient 15:20:11 CDT Marvel Gurdeepajayestela [facility]-59827 Level 4 Est. Patient 19:08:12 CDT Alina Castaneda MD [facility]-27429 Level 3 Est. Patient 15:06:39 CDT Marvel Gurdeepajayestela [facility]-76406 Level 4 Est. Patient 17:48:15 CDT Alina Castaneda MD [facility]52225 Level 3 Est. Patient 14:53:49 CDT Alina Castaneda MD [facility]28478 Level 3 Est. Patient 09:35:16 CDT Alina Castaneda MD [facility]-84611 Level 3 Est. Patient 12:23:22 CDT Alina Castaneda MD [facility]-02778 Level 3 Est. Patient 16:19:15 CDT Alina Castaneda MD [facility]14676 Level 3 Est. Patient 21:39:56 MARINE FISHERIES TECHNICIAN Alina Castaneda MD [facility]-94703 Level 4 Est. Patient 14:12:56 MARINE FISHERIES TECHNICIAN Alina Castaneda MD [facility]-82759 Level 2 Est. Patient 15:34:57 MARINE FISHERIES TECHNICIAN Alina Castaneda MD [facility]-94726 Level 3 Est. Patient 12:17:04 MARINE FISHERIES TECHNICIAN Alina Castaneda MD [facility]-38579 Level 3 Est. Patient 09:18:18 MARINE FISHERIES TECHNICIAN Marvel Charles [facility]-05414 Level 2 Est. Patient 21:50:24 CDT Alina Castaneda MD [facility]-65192 Level 3 Est. Patient 09:17:28 CDT Marvel Charles [facility]-26689 Level 4 Est. Patient 18:54:02 CDT Alina Castaneda MD [facility]-85064 Level 3 Est. Patient 10:47:10 CDT Alina Castaneda MD [facility]39910 Level 3 Est. Patient 09:22:20 CDT Marvel Charles [facility]00856 Level 3 Est. Patient 16:39:43 CDT Marvel Charles [facility]84856 Level 3 Est. Patient 16:05:16 CDT Alina Castaneda MD [facility] CPT-18113 Level 3 Est. Patient 00:29:15 CDT Alina Castaneda MD [facility] CPT-25170 Level 3 Est. Patient 10:49:22 MARINE FISHERIES TECHNICIAN [facility] Level 3 Est. Patient 21:30:19 MARINE FISHERIES TECHNICIAN Alina Castaneda MD [facility] CPT-99731 Level 4 Est. Patient 17:04:11 MARINE FISHERIES TECHNICIAN [facility] CPT-77375 Level 3 Est. Patient 15:34:11 MARINE FISHERIES TECHNICIAN [facility] Level 2 Est. Patient 12:51:58 MARINE FISHERIES TECHNICIAN Alina Castaneda MD [facility] CPT-15770 Level 3 Est. Patient 13:20:01 MARINE FISHERIES TECHNICIAN Alina Castaneda MD [facility] CPT-53798 Level 3 Est. Patient 09:23:35 CDT Alina Castaneda MD [facility] Procedures Code Procedure Name Date Entry Date Standard Description CPT-G0008 Administration of Influenza Virus Vaccine 13:05:26 CDT CPT-20695 Fluzone Quadrivalent Intramuscular Suspension 0.5 ML 13: 05:26 CDT CPT-82601 Administration single or combination vaccine inc oral 11 :49:51 CDT CPT-88584 Pneumovax 11:49:51 CDT CPT-49379 Ribs unilateral 2V 12:37:22 MARINE FISHER[employer] TECHNICIAN CPT-22851 Chest 2V Frontal and Lat 17:15:26 CDT CPT-62744 Abx/Therapy Injection 18:54:02 CDT CPT-J0696 Rocephin 1000 mg (Ceftriaxone) 16:00:32 CDT CPT-73442 Chest 2V Frontal and Lat 15:26:45 CDT CPT-15705 Chest 2V Frontal and Lat 10:23:27 CDT CPT-71978 Venipuncture Draw Fee 10:11:00 CDT CPT-97335 Administration single or combination vaccine inc oral 11 :56:38 CDT CPT-22357 Influenza split virus > age 3 11:56:38 CDT CPT-68320 Venipuncture Draw Fee 08:49:54 MARINE FISHERIES TECHNICIAN CPT-23898 EKG Trac and Interp 17:54:19 MARINE FISHERIES TECHNICIAN
--- OUTSIDE RECORDS SUMMARY | 2018-07-02 21:15 | XMS REPORT | Clinical Summary ---
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 Alina Castaneda MD PhD Recurrent isolated sleep paralysis SPECIAL SCREENING FOR MALIGNANT NEOPLASM OF PROSTATE V76.44 Resolved Alina Castaneda MD PhD Screening for malignant neoplasms of prostate Hypoglycemia 251.2 Resolved Alina Castaneda MD PhD Hypoglycemia, unspecified Diabetes mellitus, type II 250.00 Active Mallashondaeh Bertrandari C[employer]IFIED SHORTHAND REPORTER Diabetes mellitus without mention of complication, type [...] 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 Roro Castaneda MD PhD Hypoglycemia ICD-251.2 Inactive Alina Castandea MD PhD Dizziness ICD-780.4 Inactive Alina Castaneda MD PhD Confusion ICD-298.9 Inactive Alina Castaneda MD PhD SPECIAL SCREENING FOR MALIGNANT NEOPLASM OF PROSTATE ICD-V76.44 Inactive Alina Castaneda MD PhD Medication List Medication Instructions Start Date Stop Date Generic Name NDC Status Provider Patient Instruction ACCU-CHEK ROSA INVITR STRP use strips with device to check blood sugars 3 times daily GLUCOSE BLOOD 64071680072 Active Alina Castaneda MD PhD Active ACCU-CHEK ROSA UZMA Use device to check blood sugars BLOOD GLUCOSE MONITORING SUPPL 65474670631 Active Alina Castaneda MD PhD Active TRUETEST TEST STRP check sugars 4x/day GLUCOSE BLOOD 88893731811 No Longer Active Alina Castaneda MD PhD Active MORPHINE SULFATE 30 MG TABS 1 pill by mouth twice daily, for pain MORPHINE SULFATE 50880440735 Active Alina Castaneda MD PhD Active ACYCLOVIR 400 MG ORAL TABS 1 pill three times daily x 5 days, for cold sore outbreak ACYCLOVIR 27001093489 No Longer Active Alina Castaneda MD PhD Active PENICILLIN V POTASSIUM 500 MG TABS 1 pill by mouth three times daily PENICILLIN V POTASSIUM 74230497140 No Longer Active Alina Castaneda MD PhD Active LATUDA 80 MG TABS 1 tab by mouth every evening LURASIDONE HCL 32091936715 Active Alina Castaneda MD PhD Active UROXATRAL 10 MG [id number] Take 1 tablet by mouth daily ALFUZOSIN HCL 07435119569 No Longer Active Alina Castaneda MD PhD Active THIOTHIXENE 5 MG CAPS by mouth twice a day THIOTHIXENE 95680111980 No Longer Active Alina Castaneda MD PhD Active ZYPREXA 7.5 MG TABS 1 at HS OLANZAPINE 44776366357 No Longer Active Alina Castaneda MD PhD Active HUMALOG 100 UNIT/ML SOLN Take 20 units with breakfast, 10u with lunch and suppetr. INSULIN LISPRO (HUMAN) 50351978202 Active Maljohn Ziglari CERTIFIED SHORTHAND REPORTER Active LEVEMIR 100 UNIT/ML SOLN Take 70 u at 7-8pm INSULIN DETEMIR 24412304916 Active Maliheh Ziglari CERTIFIED SHORTHAND REPORTER Active BD INSULIN SYRINGE 28G X 1/2" 1 ML MISC 1 four times per day INSULIN SYRINGE-NEEDLE U-100 20379751234 Active Malnivia Ziglari CERTIFIED SHORTHAND REPORTER Active CYCLOBENZAPRINE HCL 10 MG TABS 1 tablet by mouth three times daily, scheduled CYCLOBENZAPRINE HCL 36854833966 Active Alina Castaneda MD PhD Active TOLTERODINE TARTRATE 2 MG TABS 1 pill twice daily, for bladder TOLTERODINE TARTRATE 02913220855 Active Alina Castaneda MD PhD Active DETROL LA 4 MG [id number]-RAP Take 1 tablet by mouth daily TOLTERODINE TARTRATE 08536249376 No Longer Active Alina Castaneda MD PhD Active HYDROCODONE-ACETAMINOPHEN 5-325 MG TABS 2 tabs by mouth three times daily as needed for pain HYDROCODONE-ACETAMINOPHEN 46438031992 Active Rhett Luther DO Active TERESE CONTOUR TEST STRP monitor blood sugars 3x/day GLUCOSE BLOOD 09279792100 No Longer Active Alina Castaneda MD PhD Active EQL TRUETEST TEST STRP Test blood sugar TID GLUCOSE BLOOD 31438622317 No Longer Active Alina Castaneda MD PhD Active FLUTICASONE PROPIONATE 50 MCG/ACT SUSP 2 sprays each nostril qDay x 30 days FLUTICASONE PROPIONATE 13239136794 No Longer Active Alina Castaneda MD PhD Active IBUPROFEN 200 MG TABS 1 Q 6 hr. PRN IBUPROFEN 55536108682 No Longer Active Alina Castaneda MD PhD Active NIACIN ER 500 MG CR-TABS 4 qHS (for triglycerides) NIACIN 09328929006 No Longer Active Alina Castaneda MD PhD Active ALFUZOSIN HCL ER 10 MG [id number]-SZF 1 tablet daily ALFUZOSIN HCL 67712532367 Active Vanessa Hickey MD Active CLONAZEPAM 1 MG TABS 1 pill by mouth three times daily CLONAZEPAM 79249839772 Active Alina Castaneda MD PhD Active LOVAZA 1 GM CAPS 4 daily (for triglycerides) LAZII-7-BLSW ETHYL ESTERS 16861127591 Active Alina Castaneda MD PhD Active SAPHRIS 5 MG SUBL by mouth twice a day ASENAPINE MALEATE 97444797746 No Longer Active Marvel MARROQUIN Active ACETAMINOPHEN 500 MG TABS 2 Q 6 hr. PRN ACETAMINOPHEN 35242511924 No Longer Active Maljohn MENDOZAP Active VERAPAMIL HCL ER 120 MG [id number]-ITF 1 pill by mouth twice a day, for headache prevention/control VERAPAMIL HCL 72556617387 Active Alina Castaneda MD PhD Active ORPHENADRINE CITRATE ER 100 MG RL52R-DAV 1 every 12 hr. as needed ORPHENADRINE CITRATE 73679946136 No Longer Active Alina Castaneda MD PhD Active NIACIN CR 500 MG CR-TABS 2 qHS NIACIN 69909030301 No Longer Active Alina Castaneda MD PhD Active AMOXICILLIN 500 MG CAPS 2 po BID x 10 days AMOXICILLIN 59958065507 No Longer Active Alina Castaneda MD PhD Active HYDROCODONE-ACETAMINOPHEN 7.5-325 MG TABS 1 four times a day as needed for pain HYDROCODONE-ACETAMINOPHEN 77575964448 No Longer Active Alina Castaneda MD PhD Active METFORMIN HCL ER 500 MG BC72X-ECN Take three tablets by mouth everyday METFORMIN HCL 90530247151 Active Mallashondaeh Ziglestela CERTIFIED SHORTHAND REPORTER Active DOXEPIN HCL 10 MG CAPS Take 1 tablet by mouth daily DOXEPIN HCL 89578717458 No Longer Active Salina Han [facility] Active NAVANE 10 MG CAPS 1/2 tablet twice a day THIOTHIXENE No Longer Active Salina Han [facility] Active CYCLOBENZAPRINE HCL 10 MG TABS 1/2 tablet by mouth every 8 hours as needed for muscle spasms CYCLOBENZAPRINE HCL 34377427568 No Longer Active Alina Castaneda MD PhD Active BACTROBAN 2 % CREAM apply to ear and nose twice daily MUPIROCIN CALCIUM 93107987080 No Longer Active Alina Castaneda MD PhD Active HYDROCODONE-ACETAMINOPHEN 5-325 MG TABS take one tablet by mouth every four hours as needed for pain HYDROCODONE-ACETAMINOPHEN 89835174195 No Longer Active Alina Castaneda MD PhD Active ZOLPIDEM TARTRATE 10 MG TABS take at bedtime ZOLPIDEM TARTRATE 28081033226 Active Alina Castaneda MD PhD Active ZYPREXA 5 MG TABS take one tablet by mouth every evening OLANZAPINE 53012950137 No Longer Active Alina Castaneda MD PhD Active ALBUTEROL SULFATE 0.083 % NEBU SOLN one vial per nebulizer TID and PRN cough/ soa ALBUTEROL SULFATE 25264320057 No Longer Active Alina Castaneda MD PhD Active GUAIFENESIN 600 MG QU66K-SKF 1 tablet by mouth twice daily if needed for cough GUAIFENESIN 36306268034 No Longer Active Marvel Charles [facility] Active AZITHROMYCIN 500 MG SOLR 1 po q day AZITHROMYCIN 98665867694 No Longer Active Alina Castaneda MD PhD Active METOPROLOL SUCCINATE 100 MG RE91J-WQG 1 by mouth daily for blood pressure METOPROLOL SUCCINATE 21574457373 Active Alina Castaneda MD PhD Active PROMETHAZINE-CODEINE 6.25-10 MG/5ML SYRP 1 tsp po q 6 hours prn cough PROMETHAZINE-CODEINE 28823036107 No Longer Active Alina Castaneda MD PhD Active CEFDINIR 300 MG CAPS by mouth twice a day CEFDINIR 39228841476 No Longer Active Alina Castaneda MD PhD Active METFORMIN HCL 500 MG FZ62W-EZF Take 3 tablets by mouth everyday METFORMIN HCL 74164850643 No Longer Active Alina Castaneda MD PhD Active LEVEMIR 100 UNIT/ML SOLN 90 units SQ qHS INSULIN DETEMIR 05395182272 No Longer Active Marvel MARROQUIN Active TOPROL XL 100 MG [id number]-IMY 1 @ HS METOPROLOL SUCCINATE 60630949038 No Longer Active Marvel MARROQUIN Active ALLOPURINOL 300 MG TABS Take one by mouth daily ALLOPURINOL 02218951118 Active Alina Castaneda MD PhD Active ZYPREXA 10 MG TABS Take one by mouth daily OLANZAPINE 76441471342 No Longer Active Alina Castaneda MD PhD Active NOVOLOG 100 UNIT/ML SOLN 40 units with every meal INSULIN ASPART 83336869590 No Longer Active Alina Castaneda MD PhD Active VERAPAMIL HCL CR 120 MG TAB CR 1 qPM VERAPAMIL HCL 02479263414 No Longer Active Salina Han Ariela Active ZYPREXA 15 MG TABS Take 1 tablet by mouth daily OLANZAPINE 29300215975 No Longer Active Marvel MARROQUIN Active LISINOPRIL 20 MG TABS 1 BID LISINOPRIL 47083788595 Active Alina Castaneda MD PhD Active ALBUTEROL SULFATE (2.5 MG/3ML) 0.083% NEBU 1 neb tid and prn cough ALBUTEROL SULFATE 71520831935 No Longer Active Alina Castaneda MD PhD Active FLUVOXAMINE MALEATE 100 MG TABS Take one (1) tablet by mouth am, 1/2 at noon, 1 pm FLUVOXAMINE MALEATE 97934499317 Active Alina Castaneda MD PhD Active TRAVATAN Z 0.004 % SOLN 1 gtt each eye daily TRAVOPROST 65913110118 Active CRYSTAL Suarez Active LANTUS 100 UNIT/ML SOLN 60 units sq q hs INSULIN GLARGINE 18646874690 No Longer Active CRYSTAL Suarez Active ALBUTEROL SULFATE (2.5 MG/3ML) 0.083% NEBU 1 neb tid and prn cough ALBUTEROL SULFATE (2.5 MG/3ML) 0.083% NEBU 546326 ALBUTEROL SULFATE Inactive ZYPREXA 15 MG TABS Take 1 tablet by mouth daily ZYPREXA 15 MG TABS 681846 OLANZAPINE Inactive VERAPAMIL HCL CR 120 MG TAB CR 1 qPM VERAPAMIL HCL CR 120 MG TAB CR VERAPAMIL HCL Inactive ZYPREXA 10 MG TABS Take one by mouth daily ZYPREXA 10 MG TABS 377905 OLANZAPINE Inactive TOPROL XL 100 MG [id number]-TIF 1 @ HS TOPROL XL 100 MG [id number]-LCN METOPROLOL SUCCINATE Inactive LEVEMIR 100 UNIT/ML SOLN 90 units SQ qHS LEVEMIR 100 UNIT/ML SOLN INSULIN DETEMIR Inactive PROMETHAZINE-CODEINE 6.25-10 MG/5ML SYRP 1 tsp po q 6 hours prn cough PROMETHAZINE-CODEINE 6.25-10 MG/5ML SYRP 894387 PROMETHAZINE- CODEINE Inactive GUAIFENESIN 600 MG DK20T-IUW 1 tablet by mouth twice daily if needed for cough GUAIFENESIN 600 MG CR51M-HKQ GUAIFENESIN Inactive ALBUTEROL SULFATE 0.083 % NEBU SOLN one vial per nebulizer TID and PRN cough/ soa ALBUTEROL SULFATE 0.083 % NEBU SOLN 684816 ALBUTEROL SULFATE Inactive ZYPREXA 5 MG TABS take one tablet by mouth every evening ZYPREXA 5 MG TABS 507634 OLANZAPINE Inactive HYDROCODONE-ACETAMINOPHEN 5-325 MG TABS take one tablet by mouth every four hours as needed for pain HYDROCODONE-ACETAMINOPHEN 5-325 MG TABS 700533 HYDROCODONE-ACETAMINOPHEN Inactive BACTROBAN 2 % CREAM apply to ear and nose twice daily BACTROBAN 2 % CREAM 690733 MUPIROCIN CALCIUM Inactive CYCLOBENZAPRINE HCL 10 MG TABS 1/2 tablet by mouth every 8 hours as needed for muscle spasms CYCLOBENZAPRINE HCL 10 MG TABS 431760 CYCLOBENZAPRINE HCL Inactive NAVANE 10 MG CAPS 1/2 tablet twice a day NAVANE 10 MG CAPS THIOTHIXENE Inactive DOXEPIN HCL 10 MG CAPS Take 1 tablet by mouth daily DOXEPIN HCL 10 MG CAPS 8918281 DOXEPIN HCL Inactive HYDROCODONE-ACETAMINOPHEN 7.5-325 MG TABS 1 four times a day as needed for pain HYDROCODONE-ACETAMINOPHEN 7.5-325 MG TABS 365313 HYDROCODONE-ACETAMINOPHEN Inactive NIACIN CR 500 MG CR-TABS 2 qHS NIACIN CR 500 MG CR- TABS NIACIN Inactive ORPHENADRINE CITRATE ER 100 MG [id number] 1 every 12 hr. as needed ORPHENADRINE CITRATE ER 100 MG BG48H-CTT ORPHENADRINE CITRATE Inactive ACETAMINOPHEN 500 MG TABS 2 Q 6 hr. PRN ACETAMINOPHEN 500 MG TABS 667676 ACETAMINOPHEN Inactive SAPHRIS 5 MG SUBL by mouth twice a day SAPHRIS 5 MG SUBL ASENAPINE MALEATE Inactive NIACIN ER 500 MG CR-TABS 4 qHS (for triglycerides) NIACIN ER 500 MG CR-TABS NIACIN Inactive IBUPROFEN 200 MG TABS 1 Q 6 hr. PRN IBUPROFEN 200 MG TABS 987035 IBUPROFEN Inactive FLUTICASONE PROPIONATE 50 MCG/ACT SUSP 2 sprays each nostril qDay x 30 days FLUTICASONE PROPIONATE 50 MCG/ACT SUSP 986865 FLUTICASONE PROPIONATE Inactive EQL TRUETEST TEST STRP Test blood sugar TID EQL TRUETEST TEST STRP GLUCOSE BLOOD Inactive TERESE CONTOUR TEST STRP monitor blood sugars 3x/day TERESE CONTOUR TEST STRP GLUCOSE BLOOD Inactive DETROL LA 4 MG [id number]-XTE Take 1 tablet by mouth daily DETROL LA 4 MG BY50F-MOS TOLTERODINE TARTRATE Inactive ZYPREXA 7.5 MG TABS 1 at HS ZYPREXA 7.5 MG TABS 232787 OLANZAPINE Inactive THIOTHIXENE 5 MG CAPS by mouth twice a day THIOTHIXENE 5 MG CAPS 625569 THIOTHIXENE Inactive UROXATRAL 10 MG EM17D-UNO Take 1 tablet by mouth daily UROXATRAL 10 MG AL84E-WRK ALFUZOSIN HCL Inactive ACYCLOVIR 400 MG ORAL TABS 1 pill three times daily x 5 days, for cold sore outbreak ACYCLOVIR 400 MG ORAL TABS 996963 ACYCLOVIR Inactive TRUETEST TEST STRP check sugars 4x/day TRUETEST TEST STRP GLUCOSE BLOOD Inactive CEFDINIR 300 MG CAPS by mouth twice a day CEFDINIR 300 MG CAPS 224777 CEFDINIR Inactive AZITHROMYCIN 500 MG SOLR 1 po q day AZITHROMYCIN 500 MG SOLR 127224 AZITHROMYCIN Inactive AMOXICILLIN 500 MG CAPS 2 po BID x 10 days AMOXICILLIN 500 MG CAPS 929146 AMOXICILLIN Inactive PENICILLIN V POTASSIUM 500 MG TABS 1 pill by mouth three times daily PENICILLIN V POTASSIUM 500 MG TABS 552183 PENICILLIN V POTASSIUM Inactive Immunizations Vaccine Administration [...] Fluvirin, Fluarix, Agriflu(>=18 yo)) Fluzone (>3 yrs.) [[id number]] Influenza, seasonal, injectable pneumococcal immunization administered Pneumovax [...] HGBA1C - Chemistry sodium, serum 130 mmol/L 643-183 4508/06/09 potassium, serum 4.0 mmol/L 3.5-5.2 chloride, serum 92 mmol/L 98-107 carbon dioxide, venous blood 22.1 mmol/L 21.0-32.0 blood glucose 60 mg/dL 65-110 calcium, serum 9.5 mg/dL 8.5-10.1 urea nitrogen, blood 14 mg/dL 7-18 creatinine, serum 1.30 mg/dL 0.60-1.30 hemoglobin A1C, blood, as % of total hemoglobin 6.0 % 4.3-6.0 sodium, serum 131 mmol/L 486-437 5202/12/30 potassium, serum 5.0 mmol/L 3.5-5.2 chloride, serum [...] 6.0 mg/dL 2.6-7.2 sodium, serum 130 mmol/L 474-601 3860/05/01 potassium, serum 5.2 mmol/L 3.5-5.2 chloride, serum [...] 0.40 mg/dL 0.00-1.00 cholesterol, serum 151 mg/dL 007-429 8004/05/01 triglyceride, serum, fasting 356 mg/dL 30-200 HDL [...] Panel - Chemistry sodium, serum 127 mmol/L 825-571 0785/10/27 potassium, serum 4.1 mmol/L 3.5-5.2 chloride, serum [...] BA - Chemistry sodium, serum 126 mmol/L 470-180 8669/02/26 potassium, serum 4.8 mmol/L 3.5-5.2 chloride, serum [...] mg/dL Encounters Code Encounter Date Provider Facility CPT-17966 Level 3 Est. Patient 10:09:22 [employer] Alina Castaneda MD PhD [facility] CPT-09520 Level 3 Est. Patient 14:36:[address] CPT-79474 Level 3 Est. Patient 13:34:47 [employer] Alina Castaneda MD PhD [facility] CPT-98580 Level 3 Est. Patient 19:52:08 [employer] Alina Castaneda MD [facility] CPT-50761 Level 3 Est. Patient 10:01:51 [employer] Marvel Charles [facility] CPT-79930 Level 3 Est. Patient 21:54:06 CDT Vanessa Hickey MD [facility]-01943 Level 3 Est. Patient 08:54:46 CDT Alina Castaneda MD PhD [facility] CPT-73047 Level 3 Est. Patient 09:32:11 CDT Marvel Gurdeepajayestela [facility]-29584 Level 3 Est. Patient 12:02:49 CDT Alina Castaneda MD [facility]-49129 Level 3 Est. Patient 19:17:33 CDT Alina Castaneda MD [facility]17854 Level 3 Est. Patient 13:19:10 CDT Marvel Gurdeepajayestela [facility]-79430 Level 3 Est. Patient 08:20:05 CDT Alina Castaneda MD [facility]-23328 Level 3 Est. Patient 15:17:18 CDT Alina Castaneda MD [facility]15561 Level 3 Est. Patient 14:25:36 [employer] Marvel Charles [facility]-88985 Level 3 Est. Patient 10:09:15 [employer] Marvel Charles [facility]-22738 Level 3 Est. Patient 21:28:43 CDT Alina Castaneda MD [facility]-10587 Level 3 Est. Patient 15:20:11 CDT Marvel Araceli [facility]-57705 Level 4 Est. Patient 19:08:12 CDT Alina Castaneda MD [facility]55536 Level 3 Est. Patient 15:06:39 CDT Brooksjohn Charles [facility]-45951 Level 4 Est. Patient 17:48:15 CDT Alina Castaneda MD [facility]10414 Level 3 Est. Patient 14:53:49 CDT Alina Castaneda MD [facility]99042 Level 3 Est. Patient 09:35:16 CDT Alina Castaneda MD [facility]-85990 Level 3 Est. Patient 12:23:22 CDT Alina Castaneda MD [facility]-68717 Level 3 Est. Patient 16:19:15 CDT Alina Castaneda MD [facility]43855 Level 3 Est. Patient 21:39:56 [employer] Alina Castaneda MD [facility]-96805 Level 4 Est. Patient 14:12:56 [employer] Alina Castaneda MD [facility]-52452 Level 2 Est. Patient 15:34:57 [employer] Alina Castaneda MD [facility]-01242 Level 3 Est. Patient 12:17:04 [employer] Alina Castaneda MD [facility]-88511 Level 3 Est. Patient 09:18:18 [employer] Marvel Charles [facility]-87881 Level 2 Est. Patient 21:50:24 CDT Alina Castaneda MD [facility]-02187 Level 3 Est. Patient 09:17:28 CDT Marvel Charles [facility]-22822 Level 4 Est. Patient 18:54:02 CDT Alina Castaneda MD [facility]60927 Level 3 Est. Patient 10:47:10 CDT Alina Castaneda MD [facility]-10322 Level 3 Est. Patient 09:22:20 CDT Marvel Charles [facility]-79981 Level 3 Est. Patient 16:39:43 CDT Marvel Charles [facility]-54250 Level 3 Est. Patient 16:05:16 CDT Alina Castaneda MD [facility] CPT-45570 Level 3 Est. Patient 00:29:15 CDT Alina Castaneda MD [facility] CPT-43512 Level 3 Est. Patient 10:49:22 [employer] Brooksnivia Thurstonestela [facility] CPT-37649 Level 3 Est. Patient 21:30:19 [employer] Alina Castaneda MD [facility] CPT-44903 Level 4 Est. Patient 17:04:11 [employer] [facility] CPT-57174 Level 3 Est. Patient 15:34:11 [employer] [facility] Level 2 Est. Patient 12:51:58 [employer] Alina Castaneda MD [facility] CPT-81027 Level 3 Est. Patient 13:20:01 [employer] Alina Castaneda MD [facility] CPT-93615 Level 3 Est. Patient 09:23:35 CDT Alina Castaneda MD [facility] Procedures Code Procedure Name Date Entry Date Standard Description CPT-79210 Bladder Scan 21:54:06 CDT CPT-G0008 Administration of Influenza Virus Vaccine 13:05:26 CDT CPT-94662 Fluzone Quadrivalent Intramuscular Suspension 0.5 ML 13: 05:26 CDT CPT-20698 Administration single or combination vaccine inc oral 11 :49:51 CDT CPT-81155 Pneumovax 11:49:51 CDT CPT-03474 Ribs unilateral 2V 12:37:22 [employer] CPT-29374 Chest 2V Frontal and Lat 17:15:26 CDT CPT-48430 Abx/Therapy Injection 18:54:02 CDT CPT-J0696 Rocephin 1000 mg (Ceftriaxone) 16:00:32 CDT CPT-75317 Chest 2V Frontal and Lat 15:26:45 CDT CPT-58728 Chest 2V Frontal and Lat 10:23:27 CDT CPT-83160 Venipuncture Draw Fee 10:11:00 CDT CPT-28414 Administration single or combination vaccine inc oral 11 :56:38 CDT CPT-64046 Influenza split virus > age 3 11:56:38 CDT CPT-75033 Venipuncture Draw Fee 08:49:54 [employer] CPT-55849 EKG Trac and Interp 17:54:19 [employer]
--- OUTSIDE RECORDS SUMMARY | 2018-07-02 21:16 | XMS REPORT | Clinical Summary ---
Author Author Admin, TERELL Organization [facility] Address Unknown Phone Unavailable Allergies, [...] PhD Gout, unspecified FH STROKE V17.1 Resolved Mravel MARROQUIN Family history of stroke (cerebrovascular) FATIGUE 780.79 Resolved Alina Castaneda MD PhD Other malaise and fatigue DIABETES MELLITUS, TYPE II, UNCONTROLLED 250.02 Resolved Marvel MARROQUIN Diabetes mellitus without mention of complication , type II or unspecified type, uncontrolled PALPITATIONS 785.1 Active Alina Castaneda MD PhD Palpitations UNSPECIFIED TACHYCARDIA 785.0 Resolved Alina Castaneda MD PhD Tachycardia, unspecified ABNORMAL HEART RHYTHMS 427.9 Active Alina Castnaeda MD PhD Cardiac dysrhythmia, unspecified PROBLEMS RELATED [...] type II, uncontrolled 250.02 Active Mallashondaeh Gurdeepglestela BRAILLE TRANSCRIBER Diabetes mellitus without mention of complication, type II or unspecified type, uncontrolled 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 Active Alina Castaneda MD PhD Recurrent isolated sleep paralysis SPECIAL SCREENING FOR MALIGNANT NEOPLASM OF PROSTATE V76.44 Resolved Alina Castaneda MD PhD Screening for malignant neoplasms of prostate Hypoglycemia 251.2 Resolved Alina Castaneda MD PhD Hypoglycemia, unspecified Diabetes mellitus, type II 250.00 Active Mallashondaeh Bertrandari BRAILLE TRANSCRIBER Diabetes mellitus without mention of complication, type [...] blood sugars 3 times daily GLUCOSE BLOOD 61524171355 Active Alina Csataneda MD PhD Active ACCU-CHEK ROSA UZMA Use device to check blood sugars BLOOD GLUCOSE MONITORING SUPPL 47399268391 Active Alina Castaneda MD PhD Active TRUETEST TEST STRP check sugars 4x/day GLUCOSE BLOOD 80611672824 No Longer Active Alina Castaneda MD PhD Active MORPHINE SULFATE 30 MG TABS 1 pill by mouth twice daily, for pain MORPHINE SULFATE 51250674738 Active Alina Castaneda MD PhD Active ACYCLOVIR 400 MG ORAL TABS 1 pill three times daily x 5 days, for cold sore outbreak ACYCLOVIR 31743647135 No Longer Active Alina Castaneda MD PhD Active PENICILLIN V POTASSIUM 500 MG TABS 1 pill by mouth three times daily PENICILLIN V POTASSIUM 53109059912 No Longer Active Alina Castaneda MD PhD Active LATUDA 80 MG TABS 1 tab by mouth every evening LURASIDONE HCL 75281531516 Active Alina Castaneda MD PhD Active UROXATRAL 10 MG [id number] Take 1 tablet by mouth daily ALFUZOSIN HCL 25199631121 No Longer Active Alina Castaneda MD PhD Active THIOTHIXENE 5 MG CAPS by mouth twice a day THIOTHIXENE 42481769048 No Longer Active Alina Castaneda MD PhD Active ZYPREXA 7.5 MG TABS 1 at HS OLANZAPINE 72681167478 No Longer Active Alina Castaneda MD PhD Active HUMALOG 100 UNIT/ML SOLN Take 20 units with breakfast, 10u with lunch and suppetr. INSULIN LISPRO (HUMAN) 53268310953 Active Maljohn Ziglari BRAILLE TRANSCRIBER Active LEVEMIR 100 UNIT/ML SOLN Take 70 u at 7-8pm INSULIN DETEMIR 56923149145 Active Maleh Ziglari BRAILLE TRANSCRIBER Active BD INSULIN SYRINGE 28G X 1/2" 1 ML MISC 1 four times per day INSULIN SYRINGE-NEEDLE U-100 36634939389 Active Malnivia Ziglari BRAILLE TR[employer]CRIBER Active CYCLOBENZAPRINE HCL 10 MG TABS 1 tablet by mouth three times daily, scheduled CYCLOBENZAPRINE HCL 70809761776 Active Alina Castaneda MD PhD Active TOLTERODINE TARTRATE 2 MG TABS 1 pill twice daily, for bladder TOLTERODINE TARTRATE 39917276050 Active Alina Castaneda MD PhD Active DETROL LA 4 MG [id number] Take 1 tablet by mouth daily TOLTERODINE TARTRATE 60376369191 No Longer Active Alina Castaneda MD PhD Active HYDROCODONE-ACETAMINOPHEN 5-325 MG TABS 2 tabs by mouth three times daily as needed for pain HYDROCODONE-ACETAMINOPHEN 64422301320 Active Alina Castaneda MD PhD Active TERESE CONTOUR TEST STRP monitor blood sugars 3x/day GLUCOSE BLOOD 61677033441 No Longer Active Alina Castaneda MD PhD Active EQL TRUETEST TEST STRP Test blood sugar TID GLUCOSE BLOOD 29551788579 No Longer Active Alina Castaneda MD PhD Active FLUTICASONE PROPIONATE 50 MCG/ACT SUSP 2 sprays each nostril qDay x 30 days FLUTICASONE PROPIONATE 78204129807 No Longer Active Alina Castaneda MD PhD Active IBUPROFEN 200 MG TABS 1 Q 6 hr. PRN IBUPROFEN 26563464540 No Longer Active Alina Castaneda MD PhD Active NIACIN ER 500 MG CR-TABS 4 qHS (for triglycerides) NIACIN 91067861287 No Longer Active Alina Castaneda MD PhD Active ALFUZOSIN HCL ER 10 MG [id number] 1 tablet daily ALFUZOSIN HCL 16520059534 Active Vanessa Hickey MD Active CLONAZEPAM 1 MG TABS 1 pill by mouth three times daily CLONAZEPAM 57260753690 Active Alina Castaneda MD PhD Active LOVAZA 1 GM CAPS 4 daily (for triglycerides) [id number]-1-BCYK ETHYL ESTERS 07800207312 Active Alina Castaneda MD PhD Active SAPHRIS 5 MG SUBL by mouth twice a day ASENAPINE MALEATE 77645273905 No Longer Active Marvel MARROQUIN Active ACETAMINOPHEN 500 MG TABS 2 Q 6 hr. PRN ACETAMINOPHEN 61750275579 No Longer Active Marvel MARROQUIN Active VERAPAMIL HCL ER 120 MG [id number] 1 pill by mouth twice a day, for headache prevention/control VERAPAMIL HCL 57464912020 Active Alina Castaneda MD PhD Active ORPHENADRINE CITRATE ER 100 MG [id number] 1 every 12 hr. as needed ORPHENADRINE CITRATE 85366405884 No Longer Active Alina Castaneda MD PhD Active NIACIN CR 500 MG CR-TABS 2 qHS NIACIN 47848887626 No Longer Active Alina Castaneda MD PhD Active AMOXICILLIN 500 MG CAPS 2 po BID x 10 days AMOXICILLIN 50478064195 No Longer Active Alina Castaneda MD PhD Active HYDROCODONE-ACETAMINOPHEN 7.5-325 MG TABS 1 four times a day as needed for pain HYDROCODONE-ACETAMINOPHEN 12976103274 No Longer Active Alina Castaneda MD PhD Active METFORMIN HCL ER 500 MG CY45H-KOD Take three tablets by mouth everyday METFORMIN HCL 79197337013 Active Marvel Mackenzieglestela MENDOZAP Active DOXEPIN HCL 10 MG CAPS Take 1 tablet by mouth daily DOXEPIN HCL 50984247856 No Longer Active Salina Han ON LICENSE OF [facility] Active NAVANE 10 MG CAPS 1/2 tablet twice a day THIOTHIXENE No Longer Active Salina Han ON LICENSE OF [facility] Active CYCLOBENZAPRINE HCL 10 MG TABS 1/2 tablet by mouth every 8 hours as needed for muscle spasms CYCLOBENZAPRINE HCL 19727337865 No Longer Active Alina Castaneda MD PhD Active BACTROBAN 2 % CREAM apply to ear and nose twice daily MUPIROCIN CALCIUM 17951990332 No Longer Active Alina Castaneda MD PhD Active HYDROCODONE-ACETAMINOPHEN 5-325 MG TABS take one tablet by mouth every four hours as needed for pain HYDROCODONE-ACETAMINOPHEN 91239505880 No Longer Active Alina Castaneda MD PhD Active ZOLPIDEM TARTRATE 10 MG TABS take at bedtime ZOLPIDEM TARTRATE 41983144590 Active Alina Castaneda MD PhD Active ZYPREXA 5 MG TABS take one tablet by mouth every evening OLANZAPINE 63092226436 No Longer Active Alina Castaneda MD PhD Active ALBUTEROL SULFATE 0.083 % NEBU SOLN one vial per nebulizer TID and PRN cough/ soa ALBUTEROL SULFATE 62657884985 No Longer Active Alina Castaneda MD PhD Active GUAIFENESIN 600 MG [id number] 1 tablet by mouth twice daily if needed for cough GUAIFENESIN 44319967492 No Longer Active Marvel Charles BRAILLE TRANSCRIBER Active AZITHROMYCIN 500 MG SOLR 1 po q day AZITHROMYCIN 92391248912 No Longer Active Alina Castaneda MD PhD Active METOPROLOL SUCCINATE 100 MG PL27L-YWQ 1 by mouth daily for blood pressure METOPROLOL SUCCINATE 41889328249 Active Alina Castaneda MD PhD Active PROMETHAZINE-CODEINE 6.25-10 MG/5ML SYRP 1 tsp po q 6 hours prn cough PROMETHAZINE-CODEINE 38259119931 No Longer Active Alina Castaneda MD PhD Active CEFDINIR 300 MG CAPS by mouth twice a day CEFDINIR 98540412067 No Longer Active Alina Castaneda MD PhD Active METFORMIN HCL 500 MG TC40E-MLS Take 3 tablets by mouth everyday METFORMIN HCL 95618445154 No Longer Active Alina Castaneda MD PhD Active LEVEMIR 100 UNIT/ML SOLN 90 units SQ qHS INSULIN DETEMIR 77584974396 No Longer Active Marvel MARROQUIN Active TOPROL XL 100 MG [id number] 1 @ HS METOPROLOL SUCCINATE 76075541019 No Longer Active Marvel MARROQUIN Active ALLOPURINOL 300 MG TABS Take one by mouth daily ALLOPURINOL 49535144812 Active Alina Castaneda MD PhD Active ZYPREXA 10 MG TABS Take one by mouth daily OLANZAPINE 88815902517 No Longer Active Alina Castaneda MD PhD Active NOVOLOG 100 UNIT/ML SOLN 40 units with every meal INSULIN ASPART 61946928742 No Longer Active Alina Castaneda MD PhD Active VERAPAMIL HCL CR 120 MG TAB CR 1 qPM VERAPAMIL HCL 87359896354 No Longer Active Salina Han ON LICENSE OF [facility] Active ZYPREXA 15 MG TABS Take 1 tablet by mouth daily OLANZAPINE 09507405715 No Longer Active Marvel MARROQUIN Active LISINOPRIL 20 MG TABS 1 BID LISINOPRIL 05371947349 Active Alina Castaneda MD PhD Active ALBUTEROL SULFATE (2.5 MG/3ML) 0.083% NEBU 1 neb tid and prn cough ALBUTEROL SULFATE 48317235302 No Longer Active Alina Castaneda MD PhD Active FLUVOXAMINE MALEATE 100 MG TABS Take one (1) tablet by mouth am, 1/2 at noon, 1 pm FLUVOXAMINE MALEATE 30605807438 Active Alina Castaneda MD PhD Active TRAVATAN Z 0.004 % SOLN 1 gtt each eye daily TRAVOPROST 46115763762 Active CRYSTAL Suarez Active LANTUS 100 UNIT/ML SOLN 60 units sq q hs INSULIN GLARGINE 10475834535 No Longer Active CRYSTAL Suarez Active ALBUTEROL SULFATE (2.5 MG/3ML) 0.083% NEBU 1 neb tid and prn cough ALBUTEROL SULFATE (2.5 MG/3ML) 0.083% NEBU 365183 ALBUTEROL SULFATE Inactive ZYPREXA 15 MG TABS Take 1 tablet by mouth daily ZYPREXA 15 MG TABS 900144 OLANZAPINE Inactive VERAPAMIL HCL CR 120 MG TAB CR 1 qPM VERAPAMIL HCL CR 120 MG TAB CR VERAPAMIL HCL Inactive ZYPREXA 10 MG TABS Take one by mouth daily ZYPREXA 10 MG TABS 382090 OLANZAPINE Inactive TOPROL XL 100 MG [id number]-QVI 1 @ HS TOPROL XL 100 MG [id number] METOPROLOL SUCCINATE Inactive LEVEMIR 100 UNIT/ML SOLN 90 units SQ qHS LEVEMIR 100 UNIT/ML SOLN INSULIN DETEMIR Inactive PROMETHAZINE-CODEINE 6.25-10 MG/5ML SYRP 1 tsp po q 6 hours prn cough PROMETHAZINE-CODEINE 6.25-10 MG/5ML SYRP 039387 PROMETHAZINE- CODEINE Inactive GUAIFENESIN 600 MG AQ72B-SEX 1 tablet by mouth twice daily if needed for cough GUAIFENESIN 600 MG [id number]-KKL GUAIFENESIN Inactive ALBUTEROL SULFATE 0.083 % NEBU SOLN one vial per nebulizer TID and PRN cough/ soa ALBUTEROL SULFATE 0.083 % NEBU SOLN 250915 ALBUTEROL SULFATE Inactive ZYPREXA 5 MG TABS take one tablet by mouth every evening ZYPREXA 5 MG TABS 522490 OLANZAPINE Inactive HYDROCODONE-ACETAMINOPHEN 5-325 MG TABS take one tablet by mouth every four hours as needed for pain HYDROCODONE-ACETAMINOPHEN 5-325 MG TABS 374406 HYDROCODONE-ACETAMINOPHEN Inactive BACTROBAN 2 % CREAM apply to ear and nose twice daily BACTROBAN 2 % CREAM 678184 MUPIROCIN CALCIUM Inactive CYCLOBENZAPRINE HCL 10 MG TABS 1/2 tablet by mouth every 8 hours as needed for muscle spasms CYCLOBENZAPRINE HCL 10 MG TABS 415091 CYCLOBENZAPRINE HCL Inactive NAVANE 10 MG CAPS 1/2 tablet twice a day NAVANE 10 MG CAPS THIOTHIXENE Inactive DOXEPIN HCL 10 MG CAPS Take 1 tablet by mouth daily DOXEPIN HCL 10 MG CAPS 8237859 DOXEPIN HCL Inactive HYDROCODONE-ACETAMINOPHEN 7.5-325 MG TABS 1 four times a day as needed for pain HYDROCODONE-ACETAMINOPHEN 7.5-325 MG TABS 367333 HYDROCODONE-ACETAMINOPHEN Inactive NIACIN CR 500 MG CR-TABS 2 qHS NIACIN CR 500 MG CR- TABS NIACIN Inactive ORPHENADRINE CITRATE ER 100 MG [id number] 1 every 12 hr. as needed ORPHENADRINE CITRATE ER 100 MG [id number]-DDA ORPHENADRINE CITRATE Inactive ACETAMINOPHEN 500 MG TABS 2 Q 6 hr. PRN ACETAMINOPHEN 500 MG TABS 287922 ACETAMINOPHEN Inactive SAPHRIS 5 MG SUBL by mouth twice a day SAPHRIS 5 MG SUBL ASENAPINE MALEATE Inactive NIACIN ER 500 MG CR-TABS 4 qHS (for triglycerides) NIACIN ER 500 MG CR-TABS NIACIN Inactive IBUPROFEN 200 MG TABS 1 Q 6 hr. PRN IBUPROFEN 200 MG TABS 032144 IBUPROFEN Inactive FLUTICASONE PROPIONATE 50 MCG/ACT SUSP 2 sprays each nostril qDay x 30 days FLUTICASONE PROPIONATE 50 MCG/ACT SUSP 284498 FLUTICASONE PROPIONATE Inactive EQL TRUETEST TEST STRP Test blood sugar TID EQL TRUETEST TEST STRP GLUCOSE BLOOD Inactive TERESE CONTOUR TEST STRP monitor blood sugars 3x/day TERESE CONTOUR TEST STRP GLUCOSE BLOOD Inactive DETROL LA 4 MG [id number] Take 1 tablet by mouth daily DETROL LA 4 MG [id number] TOLTERODINE TARTRATE Inactive ZYPREXA 7.5 MG TABS 1 at HS ZYPREXA 7.5 MG TABS 342967 OLANZAPINE Inactive THIOTHIXENE 5 MG CAPS by mouth twice a day THIOTHIXENE 5 MG CAPS 885647 THIOTHIXENE Inactive UROXATRAL 10 MG [id number] Take 1 tablet by mouth daily UROXATRAL 10 MG RU15A-XGT ALFUZOSIN HCL Inactive ACYCLOVIR 400 MG ORAL TABS 1 pill three times daily x 5 days, for cold sore outbreak ACYCLOVIR 400 MG ORAL TABS 450169 ACYCLOVIR Inactive TRUETEST TEST STRP check sugars 4x/day TRUETEST TEST STRP GLUCOSE BLOOD Inactive CEFDINIR 300 MG CAPS by mouth twice a day CEFDINIR 300 MG CAPS 915485 CEFDINIR Inactive AZITHROMYCIN 500 MG SOLR 1 po q day AZITHROMYCIN 500 MG SOLR 643593 AZITHROMYCIN Inactive AMOXICILLIN 500 MG CAPS 2 po BID x 10 days AMOXICILLIN 500 MG CAPS 547072 AMOXICILLIN Inactive PENICILLIN V POTASSIUM 500 MG TABS 1 pill by mouth three times daily PENICILLIN V POTASSIUM 500 MG TABS 356021 PENICILLIN V POTASSIUM Inactive Immunizations Vaccine Administration [...] Fluvirin, Fluarix, Agriflu(>=18 yo)) Fluzone (>3 yrs.) [[id number]] Influenza, seasonal, injectable pneumococcal immunization administered Pneumovax [...] HGBA1C - Chemistry sodium, serum 130 mmol/L 724-982 2600/06/09 potassium, serum 4.0 mmol/L 3.5-5.2 chloride, serum 92 mmol/L 98-107 carbon dioxide, venous blood 22.1 mmol/L 21.0-32.0 blood glucose 60 mg/dL 65-110 calcium, serum 9.5 mg/dL 8.5-10.1 urea nitrogen, blood 14 mg/dL 7-18 creatinine, serum 1.30 mg/dL 0.60-1.30 hemoglobin A1C, blood, as % of total hemoglobin 6.0 % 4.3-6.0 sodium, serum 131 mmol/L 533-310 5799/12/30 potassium, serum 5.0 mmol/L 3.5-5.2 chloride, serum [...] 6.0 mg/dL 2.6-7.2 sodium, serum 130 mmol/L 264-229 8372/05/01 potassium, serum 5.2 mmol/L 3.5-5.2 chloride, serum [...] 0.40 mg/dL 0.00-1.00 cholesterol, serum 151 mg/dL 083-845 2847/05/01 triglyceride, serum, fasting 356 mg/dL 30-200 HDL [...] Panel - Chemistry sodium, serum 127 mmol/L 623-007 3523/10/27 potassium, serum 4.1 mmol/L 3.5-5.2 chloride, serum [...] BA1C - Chemistry sodium, serum 126 mmol/L 257-771 8691/02/26 potassium, serum 4.8 mmol/L 3.5-5.2 chloride, serum [...] mg/dL Encounters Code Encounter Date Provider Facility CPT-52193 Level 3 Est. Patient 10:09:22 DESIGN INSERTER Alina Castaneda MD PhD [facility] CPT-10620 Level 3 Est. Patient 14:36:26 DESIGN INSERTER Marvel Charles [facility] CPT-51942 Level 3 Est. Patient 13:34:47 DESIGN INSERTER Alina Castaneda MD PhD [facility] CPT-32103 Level 3 Est. Patient 19:52:08 DESIGN INSERTER Alina Castaneda MD PhD [facility] CPT-59387 Level 3 Est. Patient 10:01:51 DESIGN INSERTER Marvel Charles [facility] CPT-13912 Level 3 Est. Patient 21:54:06 CDT Vanessa Hickey MD -[id number] Level 3 Est. Patient 08:54:46 CDT Alina Castaneda MD PhD [facility] CPT-42775 Level 3 Est. Patient 09:32:11 CDT Marvel Araceli [facility]-16298 Level 3 Est. Patient 12:02:49 CDT Alina Castaneda MD [facility]-23562 Level 3 Est. Patient 19:17:33 CDT Alina Castaneda MD [facility]71650 Level 3 Est. Patient 13:19:10 CDT Marvel Araceli [facility]-11013 Level 3 Est. Patient 08:20:05 CDT Alina Castaneda MD [facility]-47622 Level 3 Est. Patient 15:17:18 CDT Alina Castaneda MD [facility]-09551 Level 3 Est. Patient 14:25:36 DESIGN INSERTER Marvel Charles [facility]-98665 Level 3 Est. Patient 10:09:15 DESIGN INSERTER Marvel Charles [facility]-42376 Level 3 Est. Patient 21:28:43 CDT Alina Castaneda MD [facility]-47010 Level 3 Est. Patient 15:20:11 CDT Marvel Araceli [facility]-37124 Level 4 Est. Patient 19:08:12 CDT Alina Castaneda MD [facility]-06365 Level 3 Est. Patient 15:06:39 CDT Brookslashondanivia Araceli [facility]-53512 Level 4 Est. Patient 17:48:15 CDT Alina Castaneda MD [facility]20980 Level 3 Est. Patient 14:53:49 CDT Alina Castaneda MD [facility]55927 Level 3 Est. Patient 09:35:16 CDT Alina Castaneda MD [facility]-89196 Level 3 Est. Patient 12:23:22 CDT Alina Castaneda MD [facility]-21881 Level 3 Est. Patient 16:19:15 CDT Alina Castaneda MD [facility]-59469 Level 3 Est. Patient 21:39:56 DESIGN INSERTER Alina Castaneda MD [facility]-65519 Level 4 Est. Patient 14:12:56 DESIGN INSERTER Alina Castaneda MD [facility]-81375 Level 2 Est. Patient 15:34:57 DESIGN INSERTER Alina Castaneda MD [facility]-31852 Level 3 Est. Patient 12:17:04 DESIGN INSERTER Alina Castaneda MD [facility]-31260 Level 3 Est. Patient 09:18:18 DESIGN INSERTER Marvel Charles [facility]-28630 Level 2 Est. Patient 21:50:24 CDT Alina Castaneda MD [facility]-60028 Level 3 Est. Patient 09:17:28 CDT Marvel Charles [facility]-11061 Level 4 Est. Patient 18:54:02 CDT Alina Castaneda MD [facility]-85611 Level 3 Est. Patient 10:47:10 CDT Alina Castaneda MD [facility]-67748 Level 3 Est. Patient 09:22:20 CDT Marvel Charles [facility]-32872 Level 3 Est. Patient 16:39:43 CDT Marvel Charles [facility]-89772 Level 3 Est. Patient 16:05:16 CDT Alina Castaneda MD [facility] CPT-44505 Level 3 Est. Patient 00:29:15 CDT Alina Castaneda MD [facility] CPT-65773 Level 3 Est. Patient 10:49:22 DESIGN INSERTER Marvel Thurstonestela [facility] CPT-47889 Level 3 Est. Patient 21:30:19 DESIGN INSERTER Alina Castaneda MD [facility] CPT-36279 Level 4 Est. Patient 17:04:11 [facility] Level 3 Est. Patient 15:34:11 [facility]IGN [facility]ERTER [facility]-45241 Level 2 Est. Patient 12:51:58 DESIGN INSERTER Alina Castaneda MD [facility] CPT-20099 Level 3 Est. Patient 13:20:01 DESIGN INSERTER Alina Castaneda MD [facility] CPT-67056 Level 3 Est. Patient 09:23:35 CDT Alina Castaneda MD [facility] Procedures Code Procedure Name Date Entry Date Standard Description CPT-78891 Bladder Scan 21:54:06 CDT CPT-G0008 Administration of Influenza Virus Vaccine 13:05:26 CDT CPT-03675 Fluzone Quadrivalent Intramuscular Suspension 0.5 ML 13: 05:26 CDT CPT-92607 Administration single or combination vaccine inc oral 11 :49:51 CDT CPT-49612 Pneumovax 11:49:51 CDT CPT-28969 Ribs unilateral 2V 12:37:22 DESIGN INSERTER CPT-94493 Chest 2V Frontal and Lat 17:15:26 CDT CPT-13187 Abx/Therapy Injection 18:54:02 CDT CPT-J0696 Rocephin 1000 mg (Ceftriaxone) 16:00:32 CDT CPT-64698 Chest 2V Frontal and Lat 15:26:45 CDT CPT-82407 Chest 2V Frontal and Lat 10:23:27 CDT CPT-21292 Venipuncture Draw Fee 10:11:00 CDT CPT-06032 Administration single or combination vaccine inc oral 11 :56:38 CDT CPT-63752 Influenza split virus > age 3 11:56:38 CDT CPT-21843 Venipuncture Draw Fee 08:49:54 DESIGN INSERTER CPT-45971 EKG Trac and Interp 17:54:19 DESIGN INSERTER
--- OUTSIDE RECORDS SUMMARY | 2018-07-02 21:18 | XMS REPORT | Continuity of Care Document ---
Demographics x Preferred Language Unknown Marital Status Unknown Yazidi Affiliation Unknown Race Unknown Ethnic Group Unknown Author Author [facility] Organization [facility] Address Unknown Phone Unavailable Allergies Active Description Code Type Severity Reaction Onset Reported/Identified Relationship to Patient Clinical Status Yes Abilify [id number] Drug Allergy N/A N/A Yes Prozac [id number] Drug Allergy N/A N/A Yes Abilify [id number] Drug Unknown N/A Yes PROzac [id number] Drug Unknown N/A Yes ABILIFY ABILIFY UNKNOWN Yes PROZAC PROZAC UNKNOWN Yes ABILIFY UNKNOWN OTHER Yes AMBIEN SEVERE UNKNOWN Yes PROZAC UNKNOWN OTHER Yes No Known Allergies Drug Allergy N/A N/A 02/17/2013 Yes No Known Drug Allergies Drug Allergy N/A N/A 02/17/2013 Yes No Known Food Allergies Food Allergy N/A N/A 02/17/2013 Yes Penicillins Drug Allergy N/A N/A 06/09/2013 Medications Medication Packaging Start Date Stop Date Route Dosage Sig ACETAMINOPHEN ORAL TABLET 325mg(Tylenol) MG 06/22/2016 06/22/2016 QPM&1654 LURASIDONE TAB 20 MG (LATUDA) MG 06/22/2016 ONCE&1757 ALUM/MAG/SIMETH 30CC LIQ 0 (MYLANTA PLUS) cc 06/22/2016 07/02/2016 PRN Q4H ACETAMINOPHEN ORAL TABLET 325mg(Tylenol) MG 06/22/2016 07/02/2016 PRN EVERY 6 Hour LURASIDONE TAB 20 MG (LATUDA) MG 06/28/2016 QPM&2000 FLUVOXAMINE TAB 50 MG (LUVOX) MG 06/29/2016 BID&0800,2000 VERAPAMIL SR TAB 180 MG (VERELAN) MG 06/22/2016 06/29/2016 BID&0800,2000 CLONAZEPAM TAB 1 MG (KLONOPIN) MG 06/22/2016 06/29/2016 TID&0800,1400,2000 MORPHINE CR TAB 15 MG (M.S.CONTIN) MG 06/22/2016 06/29/2016 PRN BID LACTULOSE SYRUP LIQ 20 GM/30CC (CHRONULAC SYRUP) GM 06/22/2016 07/02/2016 BID&0800,2000 MILK OF MAGNYUMI LIQ 0 ml 201606/29/2016 PRN BID MELATONIN TAB 3 MG (MELATONIN) MG 06/22/2016 07/22/2016 PRN QHS POLYETHYLENE GLYCOL POWDER UD PWD 0 (MIRALAX 17GM UNIT DOSE PAKS) gm 06/22/2016 07/22/2016 PRN Q3H TRAZODONE TAB 50 MG (DESYREL) MG 07/22/2016 PRN QHS INSULIN DETEMIR VIAL INJ 100 UNITS/CC (LEVEMIR VIAL) UNITS 06/22/2016 07/21/2016 QHS&2100 CALMOSEPTINE OINT TUBE OINT 0 (RISAMINE OINT TUBE) luis f 06/22/2016 07/22/2016 PRN QID LOPERAMIDE CAP 2 MG (IMMODIUM) MG 06/22/2016 07/22/2016 PRN QID INSULIN LISPRO VIAL INJ 100 UNITS/CC (HUMALOG VIAL) UNITS 06/23/2016 07/23/2016 PRN EVERY 0 Hour INSULIN ASPART PEN INJ 100 UNITS/CC (NOVOLOG FLEXPEN) 06/23/2016 07/22/2016 Std Meals&0700,1100,1630 LACTULOSE SYRUP LIQ 20 GM/30CC (CHRONULAC SYRUP) GM 06/23/2016 07/23/2016 PRN BID LUBIPROSTONE CAP 24 MCG (AMITIZA) MCG 06/23/2016 07/22/2016 BID&0800,2000 FLUVOXAMINE TAB 50 MG (LUVOX) Dose(s) 06/23/2016 07/22/2016 BID&0800,2000 VERAPAMIL SR TAB 180 MG (VERELAN) MG 06/23/2016 07/22/2016 BID&0800,2000 CLONAZEPAM TAB 1 MG (KLONOPIN) Dose(s) 06/23/2016 07/22/2016 Q8H&0800,1400,2000 MORPHINE CR TAB 15 MG (M.S.CONTIN) MG 06/23/2016 07/22/2016 BID&0800,2000 VENLAFAXINE XR TAB 37.5 MG (EFFEXOR XR) MG 06/23/2016 07/22/2016 Daily&0900 LURASIDONE TAB 20 MG (LATUDA) MG 06/29/2016 Daily&0900 FLUTICASONE NASAL INHALER MDI 50 MCG (FLONASE NOSE SPRAY) PUFF(S) 06/23/2016 06/29/2016 Daily&0900 FLUVOXAMINE TAB 50 MG (LUVOX) Dose(s) 06/23/2016 07/22/2016 Daily&0900 LORAZEPAM TAB 0.5 MG (ATIVAN) MG 06/30/2016 PRN Daily ALLOPURINOL TAB 300 MG (ZYLOPRIM) Dose(s) 06/23/2016 07/22/2016 Daily&0900 ALFUZOSIN TAB 10 MG (UROXATRAL) Dose(s) 06/23/2016 07/22/2016 Daily&0900 POLYETHYLENE GLYCOL POWDER UD PWD 0 (MIRALAX 17GM UNIT DOSE PAKS) gm 06/23/2016 07/22/2016 Daily&0900 VITAMIN D-3 TAB 1000 UNITS (VITAMIN D-3) UNITS 06/23/2016 07/22/2016 Daily&0900 FISH OIL CAP CAP 1000 MG (OMEGA 3) MG 06/23/2016 07/22/2016 Daily&0900 BISACODYL SUPPOS SUP 10 MG (DULCOLAX SUPPOS) MG 06/23/2016 07/23/2016 PRN Daily LURASIDONE TAB 20 MG (LATUDA) MG 06/29/2016 Daily&1200 FLUVOXAMINE TAB 50 MG (LUVOX) Dose(s) 06/23/2016 07/22/2016 Daily&1200 LURASIDONE TAB 40 MG (LATUDA) MG 07/22/2016 Daily&1700 LURASIDONE TAB 20 MG (LATUDA) MG 07/22/2016 Daily&1700 TRAZODONE TAB 50 MG (DESYREL) MG 07/22/2016 QHS&2100 INSULIN DETEMIR PEN INJ 100 UNITS/CC (LEVEMIR FLEXPEN) UNITS 06/23/2016 07/22/2016 QHS&2100 LORAZEPAM TAB 0.5 MG (ATIVAN) MG 07/01/2016 PRN Daily DIVALPROEX SPRINKLE CAP 125 MG (DEPAKOTE SPRINKLE) MG 06/24/2016 07/01/2016 TID&0800,1400,2000 MELATONIN TAB 3 MG (MELATONIN) MG 06/26/2016 07/25/2016 QHS&2100 TRAZODONE TAB 50 MG (DESYREL) MG 07/25/2016 QHS&2100 Artificial TEARS opht drops (TEARS for Dry Eyes) DROP 06/27/2016 07/07/2016 QID&0700,1400,2000 FLUVOXAMINE TAB 50 MG (LUVOX) Dose(s) 06/29/2016 07/29/2016 BID&0800,1999 FLUTICASONE NASAL INHALER MDI 50 MCG (FLONASE NOSE SPRAY) Dose(s) 06/30/2016 07/29/2016 Daily&0900 FLUVOXAMINE TAB 50 MG (LUVOX) Dose(s) 06/30/2016 07/29/2016 Daily&0900 ALLOPURINOL TAB 300 MG (ZYLOPRIM) Dose(s) 06/30/2016 07/29/2016 Daily&0900 ALFUZOSIN TAB 10 MG (UROXATRAL) Dose(s) 06/30/2016 07/29/2016 Daily&0900 TOPIRAMATE TAB 25 MG (TOPAMAX) MG 03/04/2017 04/03/2017 BID&0800,2000 DIVALPROEX SPRINKLE CAP 125 MG (DEPAKOTE SPRINKLE) MG 03/04/2017 03/04/2017 ONCE&2000 BETHANECHOL TAB 25 MG (URECHOLINE) MG 03/04/2017 03/04/2017 ONCE&2000 VERAPAMIL SR TAB 180 MG (VERELAN) MG 03/04/2017 04/03/2017 BID&0800,1999 FLUVOXAMINE TAB 50 MG (LUVOX) MG 04/03/2017 BID&0800,1999 Peg 400-propylene glycol) eye drops (Systane) DROP 03/04/2017 03/04/2017 ONCE&2000 MELATONIN TAB 3 MG (MELATONIN) MG 03/04/2017 04/02/2017 QHS&2100 MORPHINE CR TAB 15 MG (M.S.CONTIN) MG 03/04/2017 04/02/2017 QHS&2100 TRAZODONE TAB 50 MG (DESYREL) MG 04/02/2017 QHS&2100 ACETAMINOPHEN ORAL TABLET 325mg(Tylenol) MG 03/04/2017 03/11/2017 PRN EVERY 6 Hour POLYETHYLENE GLYCOL POWDER UD PWD (MIRALAX 17GM UNIT DOSE PAKS) gm 03/04/2017 03/14/2017 PRN Q3H ALUM/MAG/SIMETH 30CC LIQ (MYLANTA PLUS) cc 03/05/2017 03/14/2017 PRN Q4H BETHANECHOL TAB 25 MG (URECHOLINE) MG 03/05/2017 04/03/2017 ACHS&0630,1130,1630,2100 DIVALPROEX SPRINKLE CAP 125 MG (DEPAKOTE SPRINKLE) Dose(s) 03/05/2017 04/03/2017 TID&0800,1400,2000 CALMOSEPTINE OINT TUBE (RISAMINE OINT) luis f 03/05/2017 03/11/2017 PRN QID TIMOLOL EYE DROP DRP 0.5 % (TIMOPTIC EYE DROP) drop 03/05/2017 04/03/2017 BID&0800,2000 LOPERAMIDE CAP 2 MG (IMMODIUM) MG 03/05/2017 03/11/2017 PRN QID LACTULOSE SYRUP LIQ 20 GM/30CC (CHRONULAC SYRUP) GM 03/05/2017 03/14/2017 BID&0800,2000 Peg 400-propylene glycol) eye drops (Systane) DROP 03/05/2017 04/03/2017 QID&0800,1200,1700,2200 CLOTRIMAZOLE/BETAMETHASONE CRM CRM 0 (LOTRISONE CREAM) luis f 03/05/2017 03/07/2017 BID&0800,2000 MILK OF MAGNESIA LIQ ml 03/05/2017 03/11/2017 PRN BID TAMSULOSIN CAP 0.4 MG (FLOMAX) MG 03/05/2017 04/03/2017 Daily&0900 VENLAFAXINE XR CAP 75 MG (EFFEXOR XR) MG 03/05/2017 04/03/2017 Daily&0900 ALLOPURINOL TAB 300 MG (ZYLOPRIM) MG 03/05/2017 04/03/2017 Daily&0900 VITAMIN D-3 TAB 1000 UNITS (VITAMIN D-3) UNITS 03/05/2017 04/03/2017 Daily&0900 BISACODYL SUPPOS SUP 10 MG (DULCOLAX SUPPOS) MG 03/05/2017 03/11/2017 PRN Daily CLONAZEPAM TAB 0.5 MG (KLONOPIN) MG 03/05/2017 04/04/2017 TID&0800,1400,2000 LURASIDONE TAB 40 MG (LATUDA) MG 04/03/2017 QPM&1700 LURASIDONE TAB 20 MG (LATUDA) MG 04/03/2017 QPM&1700 TAMSULOSIN CAP 0.4 MG (FLOMAX) MG 03/05/2017 04/03/2017 QPM&1800 OLANZAPINE DISSOLVABLE TAB 5 MG (ZYPREXA ZYDIS) MG 03/05/2017 04/03/2017 Daily&1800 LATANOPROST OPHTH SOLUTION LIQ 0.005 % (XALATAN) drops 03/05/2017 04/03/2017 QHS&2100 MELATONIN TAB 3 MG (MELATONIN) MG 03/05/2017 03/11/2017 QHS&2100 TRAZODONE TAB 50 MG (DESYREL) MG 03/11/2017 PRN QHS MUPIROCIN OINT 2 % (BACTROBAN) luis f 03/07/2017 04/06/2017 BID&0800,2000 PNEUMONIA VACCINE INJ (PREVNAR-13) ml 03/08/2017 03/08/2017 ONCE&1400 CLOTRIMAZOLE/BETAMETHASONE CRM CRM 0 (LOTRISONE CREAM) Dose(s) 03/09/2017 04/07/2017 BID&0800,2000 CLONAZEPAM TAB 1 MG (KLONOPIN) MG 03/10/2017 03/10/2017 TID&2000 CLONAZEPAM TAB 1 MG (KLONOPIN) MG 03/11/2017 04/09/2017 TID&0800,1400,2000 OLANZAPINE TAB 5 MG (ZYPREXA) MG 03/11/2017 ONCE&1252 OLANZAPINE TAB 5 MG (ZYPREXA) MG 04/10/2017 BID&0800,2000 OLANZAPINE TAB 5 MG (ZYPREXA) MG 03/19/2017 PRN BID POLYETHYLENE GLYCOL POWDER UD PWD (MIRALAX 17GM UNIT DOSE PAKS) gm 03/15/2017 03/25/2017 PRN Q3H Rivastigmine TD Patch 24 hour 4.6mg (EXELON) MG 03/15/2017 03/15/2017 ONCE&1600 LURASIDONE TAB 40 MG (LATUDA) MG 04/13/2017 QPM&1700 OLANZAPINE TAB 2.5 MG (ZYPREXA) MG 03/15/2017 04/14/2017 BID&0800,2000 Rivastigmine TD Patch 24 hour 4.6mg (EXELON) MG 03/16/2017 03/25/2017 Daily&0900 LACTULOSE SYRUP LIQ 20 GM/30CC (CHRONULAC SYRUP) GM 03/16/2017 03/26/2017 BID&0800,2000 SALINE NASAL MIST LIQ (OCEAN SPRAY) SPRAYS 03/21/2017 03/31/2017 PRN TID CLONAZEPAM TAB 1 MG (KLONOPIN) MG 11/15/2017 12/15/2017 TID&0800,1400,2000 SALINE NASAL MIST LIQ (OCEAN SPRAY) SPRAYS 11/15/2017 12/15/2017 PRN Q8H TAMSULOSIN CAP 0.4 MG (FLOMAX) MG 11/15/2017 12/14/2017 QPM&1700 BETHANECHOL TAB 25 MG (URECHOLINE) MG 11/15/2017 12/15/2017 QID&0800,1200,1700,2200 TAMSULOSIN CAP 0.4 MG (FLOMAX) MG 11/15/2017 12/14/2017 QPM&1800 IBUPROFEN TAB 400 MG (MOTRIN) MG 12/15/2017 PRN Q6H POLYETHYLENE GLYCOL POWDER UD PWD (MIRALAX 17GM UNIT DOSE PAKS) gm 11/15/2017 12/15/2017 PRN Q12H TOPIRAMATE TAB 25 MG (TOPAMAX) MG 11/15/2017 12/15/2017 BID&0800,2000 Docusate sodium 100mg oral capsule (COLACE) MG 11/15/2017 12/15/2017 BID&0800,2000 TIMOLOL EYE DROP DRP 0.5 % (TIMOPTIC EYE DROP) drop 11/15/2017 12/15/2017 BID&0800,2000 METFORMIN TAB 500 MG (GLUCOPHAGE) MG 11/15/2017 12/15/2017 BID&0800,2000 VERAPAMIL SR TAB 180 MG (VERELAN) MG 11/15/2017 12/15/2017 BID&0800,2000 LACTULOSE SYRUP LIQ 20 GM/30CC (CHRONULAC SYRUP) GM 11/15/2017 12/15/2017 BID&0800,2000 CLOTRIMAZOLE/BETAMETHASONE CRM CRM 0 (LOTRISONE CREAM) luis f 11/15/2017 11/22/2017 PRN BID LATANOPROST OPHTH SOLUTION LIQ 0.005 % (XALATAN) drops 11/15/2017 12/14/2017 QHS&2100 MELATONIN TAB 3 MG (MELATONIN) MG 11/15/2017 12/14/2017 QHS&2100 VENLAFAXINE XR CAP 75 MG (EFFEXOR XR) MG 11/16/2017 12/15/2017 Daily&0900 GLIMEPIRIDE TAB 2 MG (AMARYL) MG 12/15/2017 Daily&0900 ALLOPURINOL TAB 300 MG (ZYLOPRIM) MG 11/16/2017 12/15/2017 Daily&0900 VITAMIN D-3 TAB 1000 UNITS (VITAMIN D-3) UNITS 11/16/2017 12/15/2017 Daily&0900 MUPIROCIN OINT 2 % (BACTROBAN) luis f 11/19/2017 11/19/2017 ONCE&1600 MUPIROCIN OINT 2 % (BACTROBAN) luis f 11/19/2017 11/26/2017 BID&0800,2000 MUPIROCIN OINT 2 % (BACTROBAN) luis f 11/20/2017 11/26/2017 BID&0800,2000 VENLAFAXINE XR CAP 75 MG (EFFEXOR XR) MG 11/20/2017 12/19/2017 Daily&0900 CALMOSEPTINE OINT TUBE (RISAMINE OINT) luis f 11/22/2017 11/29/2017 PRN QID LOPERAMIDE CAP 2 MG (IMMODIUM) MG 11/22/2017 11/29/2017 PRN QID ALUM/MAG/SIMETH 30CC LIQ (MYLANTA PLUS) cc 11/22/2017 12/02/2017 PRN Q4H MILK OF MAGNESIA LIQ ml 11/22/2017 12/22/2017 PRN BID BISACODYL SUPPOS 10 MG (DULCOLAX SUPPOS) MG 11/23/2017 11/29/2017 PRN Daily VENLAFAXINE XR CAP 75 MG (EFFEXOR XR) MG 11/23/2017 11/23/2017 ONCE&1130 VENLAFAXINE XR CAP 75 MG (EFFEXOR XR) MG 11/24/2017 12/23/2017 Daily&0900 SALINE NASAL MIST LIQ (OCEAN SPRAY) SPRAYS 04/22/2018 05/02/2018 PRN Q8H ACETAMINOPHEN ORAL TABLET 325mg(Tylenol) MG 04/22/2018 05/22/2018 PRN EVERY 6 Hour INSULIN ASPART PEN INJ 100 UNITS/CC (NOVOLOG FLEXPEN) 04/22/2018 04/22/2018 ONCE&0630,1130,1630,2100 MAGNESIUM OXIDE TAB 400 MG (MAG-OX) MG 04/22/2018 05/22/2018 PRN Q12H IBUPROFEN TAB 400 MG (MOTRIN) MG 05/22/2018 PRN Q6H POLYETHYLENE GLYCOL POWDER UD PWD (MIRALAX 17GM UNIT DOSE PAKS) gm 04/22/2018 05/22/2018 PRN Q12H ALUM/MAG/SIMETH 30CC LIQ (MYLANTA PLUS) cc 04/22/2018 05/22/2018 PRN Q4H INSULIN ASPART PEN INJ 100 UNITS/CC (NOVOLOG FLEXPEN) Dr. Peralta 04/22/2018 05/21/2018 ACHS&0630,1130,1630,2100 QUETIAPINE TAB 25 MG (SEROQUEL) MG 04/22/2018 05/21/2018 BID&0800,1400 CALMOSEPTINE OINT TUBE (RISAMINE OINT) luis f 04/22/2018 05/22/2018 PRN QID Docusate sodium 100mg oral capsule (COLACE) MG 04/22/2018 05/22/2018 PRN BID TIMOLOL EYE DROP DRP 0.5 % (TIMOPTIC EYE DROP) drop 04/22/2018 05/21/2018 BID&0800,2000 METFORMIN TAB 500 MG (GLUCOPHAGE) MG 04/22/2018 05/21/2018 BID&0800,2000 LOPERAMIDE CAP 2 MG (IMMODIUM) MG 04/22/2018 05/22/2018 PRN QID CLONAZEPAM TAB 1 MG (KLONOPIN) MG 04/22/2018 05/21/2018 BID&0800,2000 BETHANECHOL TAB 25 MG (URECHOLINE) MG 04/22/2018 05/21/2018 QID&0800,1200,1700,2200 LACTULOSE SYRUP LIQ 20 GM/30CC (CHRONULAC SYRUP) GM 04/22/2018 05/21/2018 BID&0800,2000 MILK OF MAGNESIA LIQ ml 04/22/2018 05/22/2018 PRN BID VERAPAMIL SR TAB 180 MG (VERELAN) MG 04/22/2018 05/21/2018 BID&0800,2000 LACTOBACILLUS BULGARIS TAB (LACTINEX BULGARIS) tab 04/22/2018 05/21/2018 Daily&0900 VENLAFAXINE XR CAP 75 MG (EFFEXOR XR) MG 04/22/2018 05/21/2018 Daily&0900 FENOFIBRATE TAB 160 MG (TRICOR) MG 04/22/2018 05/21/2018 Daily&0900 TAMSULOSIN CAP 0.4 MG (FLOMAX) CAPSULE 04/22/2018 04/28/2018 Daily&0900 GLIMEPIRIDE TAB 2 MG (AMARYL) MG 05/21/2018 Daily&0900 POLYETHYLENE GLYCOL POWDER UD PWD (MIRALAX 17GM UNIT DOSE PAKS) gm 04/22/2018 05/21/2018 Daily&0900 VITAMIN D-3 TAB 1000 UNITS (VITAMIN D-3) UNITS 04/22/2018 05/21/2018 Daily&0900 BISACODYL SUPPOS 10 MG (DULCOLAX SUPPOS) MG 04/22/2018 05/22/2018 PRN Daily ALLOPURINOL TAB 300 MG (ZYLOPRIM) MG 04/22/2018 05/21/2018 Daily&0900 LACTULOSE SYRUP LIQ 20 GM/30CC (CHRONULAC SYRUP) GM 04/22/2018 05/22/2018 PRN Daily QUETIAPINE TAB 100 MG (SEROQUEL) MG 04/22/2018 05/21/2018 QPM&1700 DIVALPROEX SPRINKLE CAP 125 MG (DEPAKOTE SPRINKLE) MG 04/22/2018 05/21/2018 QPM&1700 LATANOPROST OPHTH SOLUTION LIQ 0.005 % (XALATAN) drops 04/22/2018 05/21/2018 QPM&1700 TAMSULOSIN CAP 0.4 MG (FLOMAX) CAPSULE 04/22/2018 04/28/2018 Daily&1800 SIMVASTATIN TAB 10 MG (ZOCOR) MG 05/21/2018 QPM&2000 LACTOBACILLUS BULGARIS TAB (LACTINEX BULGARIS) tab 04/22/2018 05/21/2018 QHS&2100 LATANOPROST OPHTH SOLUTION LIQ 0.005 % (XALATAN) drops 04/22/2018 05/21/2018 QHS&2100 INSULIN DETEMIR PEN INJ 100 UNITS/CC (LEVEMIR FLEXPEN) UNITS 04/22/2018 05/21/2018 QHS&2100 QUETIAPINE TAB 100 MG (SEROQUEL) MG 04/24/2018 05/23/2018 Daily&0800 QUETIAPINE TAB 100 MG (SEROQUEL) MG 04/24/2018 05/23/2018 Daily&1400 LORAZEPAM TAB 2 MG (ATIVAN) MG 07/201704/25/2018 PRN ONCE RISPERIDONE TAB 1 MG (RISPERDAL) MG 04/25/2018 05/25/2018 TID&0800,1400,2000 CLONAZEPAM TAB 1 MG (KLONOPIN) MG 04/25/2018 05/25/2018 TID&0800,1400,2000 RISPERIDONE TAB 1 MG (RISPERDAL) MG 04/26/2018 05/03/2018 TID&0600,1200,1800 CLONAZEPAM TAB 1 MG (KLONOPIN) MG 04/26/2018 05/03/2018 TID&0600,1200,1800 DIVALPROEX ER TAB 500 MG (DEPAKOTE ER) MG 04/27/2018 05/26/2018 QHS&2100 TAMSULOSIN CAP 0.4 MG (FLOMAX) Dose(s) 04/28/2018 05/27/2018 QPM&1800 RISPERIDONE TAB 0.5 MG (RISPERDAL) MG 04/29/2018 04/29/2018 ONCE&1010 RISPERIDONE TAB 1 MG (RISPERDAL) MG 04/29/2018 05/29/2018 TID&0800,1400,2000 RISPERIDONE TAB 0.5 MG (RISPERDAL) MG 04/29/2018 05/29/2018 BID&0800,2000 Divalproex 250mg extended release 24 hr (Depakote) MG 05/02/2018 05/31/2018 QHS&2100 CLONAZEPAM TAB 1 MG (KLONOPIN) MG 05/03/2018 05/10/2018 TID&0600,1200,1800 RISPERIDONE TAB 0.5 MG (RISPERDAL) MG 05/03/2018 05/03/2018 ONCE&1605 RISPERIDONE TAB 1 MG (RISPERDAL) MG 05/03/2018 05/03/2018 ONCE&2000 RISPERIDONE TAB 0.5 MG (RISPERDAL) MG 05/03/2018 05/03/2018 ONCE&2000 RISPERIDONE TAB 1 MG (RISPERDAL) MG 05/04/2018 05/10/2018 TID&0600,1200,1800 RISPERIDONE TAB 0.5 MG (RISPERDAL) MG 05/04/2018 05/10/2018 TID&0600,1200,1800 RISPERIDONE DISSOLVEABLE TAB 2 MG (RISPERDAL M) MG 05/04/2018 06/02/2018 TID&0800,1400,2000 DIVALPROEX ER TAB 500 MG (DEPAKOTE ER) MG 05/04/2018 05/10/2018 QHS&2100 DIVALPROEX ER TAB 500 MG (DEPAKOTE ER) MG 05/09/2018 06/07/2018 QHS&2100 CLONAZEPAM TAB 1 MG (KLONOPIN) MG 05/10/2018 05/16/2018 TID&0600,0800,1200,1400,1800 ACETAMINOPHEN ORAL TABLET 325mg(Tylenol) MG 06/08/2018 07/08/2018 PRN EVERY 6 Hour ALUM/MAG/SIMETH 30CC LIQ (MYLANTA PLUS) cc 06/08/2018 06/18/2018 PRN Q4H POLYETHYLENE GLYCOL POWDER UD PWD (MIRALAX 17GM UNIT DOSE PAKS) gm 06/08/2018 06/18/2018 PRN Q3H SALINE NASAL MIST LIQ (OCEAN SPRAY) SPRAYS 06/08/2018 06/18/2018 PRN Q8H ZOLPIDEM TAB 5 MG (AMBIEN) MG 06/0806/08/2018 PRN ONCE INSULIN ASPART PEN INJ 100 UNITS/CC (NOVOLOG FLEXPEN) 06/08/2018 07/08/2018 ACHS&0630,1130,1630,2100 CALMOSEPTINE OINT TUBE (RISAMINE OINT) luis f 06/08/2018 06/15/2018 PRN QID LOPERAMIDE CAP 2 MG (IMMODIUM) MG 06/08/2018 06/15/2018 PRN QID BETHANECHOL TAB 25 MG (URECHOLINE) MG 06/08/2018 07/08/2018 QID&0800,1200,1700,2200 TAMSULOSIN CAP 0.4 MG (FLOMAX) CAPSULE 06/08/2018 07/07/2018 QPM&1800 IBUPROFEN TAB 400 MG (MOTRIN) MG 07/08/2018 PRN Q6H CLONAZEPAM TAB 1 MG (KLONOPIN) MG 06/08/2018 06/18/2018 TID&0600,1200,1800 TIMOLOL EYE DROP DRP 0.5 % (TIMOPTIC EYE DROP) drop 06/08/2018 07/08/2018 BID&0800,2000 METFORMIN TAB 500 MG (GLUCOPHAGE) MG 06/08/2018 07/08/2018 BID&0800,2000 SIMVASTATIN TAB 10 MG (ZOCOR) MG 07/07/2018 QPM&2000 RISPERIDONE DISSOLVEABLE TAB 2 MG (RISPERDAL M) MG 06/08/2018 07/08/2018 TID&0800,1400,2000 MILK OF MAGNESIA LIQ ml 06/08/2018 07/08/2018 PRN BID VERAPAMIL SR TAB 180 MG (VERELAN) MG 06/08/2018 07/08/2018 BID&0800,2000 LACTOBACILLUS BULGARIS TAB (LACTINEX BULGARIS) tab 06/08/2018 07/07/2018 QHS&2100 FENOFIBRATE TAB 160 MG (TRICOR) MG 06/08/2018 07/07/2018 QHS&2100 DIVALPROEX ER TAB 500 MG (DEPAKOTE ER) MG 06/08/2018 07/07/2018 QHS&2100 LATANOPROST OPHTH SOLUTION LIQ 0.005 % (XALATAN) drops 06/08/2018 07/07/2018 QHS&2100 SIMVASTATIN TAB 10 MG (ZOCOR) MG 07/07/2018 QHS&2100 ZOLPIDEM TAB 5 MG (AMBIEN) MG 06/0806/15/2018 PRN QHS INSULIN DETEMIR PEN INJ 100 UNITS/CC (LEVEMIR FLEXPEN) UNITS 06/08/2018 07/07/2018 QHS&2100 VENLAFAXINE XR CAP 75 MG (EFFEXOR XR) MG 06/09/2018 07/08/2018 QAM&0800 GLIMEPIRIDE TAB 2 MG (AMARYL) MG 07/08/2018 QAM&0800 Docusate sodium 100mg oral capsule (COLACE) MG 06/09/2018 07/09/2018 PRN Daily POLYETHYLENE GLYCOL POWDER UD PWD (MIRALAX 17GM UNIT DOSE PAKS) gm 06/09/2018 07/08/2018 Daily&0900 VITAMIN D-3 TAB 1000 UNITS (VITAMIN D-3) UNITS 06/09/2018 07/08/2018 Daily&0900 BISACODYL SUPPOS 10 MG (DULCOLAX SUPPOS) MG 06/09/2018 06/15/2018 PRN Daily ALLOPURINOL TAB 300 MG (ZYLOPRIM) MG 06/09/2018 07/08/2018 Daily&0900 LACTULOSE SYRUP LIQ 20 GM/30CC (CHRONULAC SYRUP) GM 06/09/2018 07/09/2018 PRN Daily TRAZODONE TAB 50 MG (DESYREL) MG 07/08/2018 QHS&2100 RISPERIDONE DISSOLVEABLE TAB 2 MG (RISPERDAL M) MG 06/10/2018 07/10/2018 BID&0800,2000 DIVALPROEX ER TAB 500 MG (DEPAKOTE ER) MG 06/10/2018 07/09/2018 QHS&2100 DIVALPROEX ER TAB 500 MG (DEPAKOTE ER) MG 06/11/2018 07/10/2018 Daily&0900 ACETAMINOPHEN ORAL TABLET 325mg(Tylenol) MG 06/17/2018 07/16/2018 Daily&1800 CLONAZEPAM TAB 1 MG (KLONOPIN) MG 06/17/2018 07/17/2018 BID&0800,2000 TRAZODONE TAB 50 MG (DESYREL) MG 07/17/2018 PRN QHS CLONAZEPAM TAB 1 MG (KLONOPIN) MG 06/20/2018 07/19/2018 Daily&1400 TRAZODONE TAB 50 MG (DESYREL) MG 07/19/2018 QHS&2100 GLIMEPIRIDE TAB 2 MG (AMARYL) MG 07/20/2018 BID&0800,2000 Problems Date Dx Coded Attending Type Code Diagnosis Diagnosed By 02/17/2013 Jesus Altamirano MD Final 250.00 DM2/NOS UNCOMP NSU 02/17/2013 Jesus Altamirano MD Final 274.9 GOUT NOS 02/17/2013 Jesus Altamirano MD Final 276.1 HYPOSMOLALITY 02/17/2013 Jesus Altamirano MD Final 278.00 OBESITY NOS 02/17/2013 Jesus Altamirano MD Final 300.00 ANXIETY STATE NOS 02/17/2013 Jesus Altamirano MD Final 319 INTELL DISABILITIES NOS 02/17/2013 Jesus Altamirano MD Final 401.9 HYPERTENSION NOS 02/17/2013 Jesus Altamirano MD Final 530.81 ESOPHAGEAL REFLUX 02/17/2013 Jesus Altamirano MD Final 852.21 TRAUMATIC SDH W/O LOC 06/09/2013 EDWARDO DDS, KORINA B V72.2 DENTAL EXAMINATION 06/09/2013 EDWARDO DDS, KORINA B V72.2 DENTAL EXAMINATION 10/31/2013 EDWARDO DDS, KORINA B V72.2 DENTAL EXAMINATION 10/31/2013 EDWARDO DDS, KORINA B V72.2 DENTAL EXAMINATION 11/30/2013 EDWARDO DDS, KORINA B V72.2 DENTAL EXAMINATION 11/30/2013 EDWARDO DDS, KORINA B V72.2 DENTAL EXAMINATION 12/06/2013 EDWARDO DDS, KORINA B V72.2 DENTAL EXAMINATION 03/23/2016 LG DUKES 296.33 MAJOR DEPRESSIVE DISORDER, RECURRENT EPISODE, SEVERE DEGREE, WITHOUT MENTION OF PSYCHOTIC BEHAVIOR 03/23/2016 LG DUKES 300.00 ANXIETY STATE, UNSPECIFIED 03/23/2016 LG DUKES F33.2 MAJOR DEPRESSV DISORDER, RECURRENT SEVERE W/O PSYCH FEATURES 03/23/2016 LG DUKES F41.9 ANXIETY DISORDER, UNSPECIFIED 06/22/2016 LG DUKES 365.9 06/22/2016 LG DUKES 530.81 06/22/2016 LG DUKES 272.4 06/22/2016 LG DUKES 338.2 06/22/2016 LG DUKES 346.90 06/22/2016 LG DUKES 365.9 06/22/2016 LG DUKES 375.15 TEAR FILM INSUFFICIENCY, UNSPECIFIED 06/22/2016 LG DUKES 530.81 06/22/2016 ERNSTLG 564.00 06/22/2016 LG DUKES 780.52 06/22/2016 WHITELG 788.29 06/22/2016 ERNSTLG E11.9 06/22/2016 ERNSTLG E78.5 06/22/2016 LG DUKES F09 06/22/2016 LG DUKES F29 06/22/2016 WHITELG F33.3 06/22/2016 LG DUKES G43.909 MIGRAINE, UNSP, NOT INTRACTABLE, WITHOUT STATUS MIGRAINOSUS 06/22/2016 LG DUKES G47.00 INSOMNIA, UNSPECIFIED 06/22/2016 LG DUKES G89.29 OTHER CHRONIC PAIN 06/22/2016 LG DUKES H04.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 06/22/2016 LG DUKES H40.9 UNSPECIFIED GLAUCOMA 06/22/2016 LG DUKES K21.9 06/22/2016 LG DUKES K59.00 CONSTIPATION, UNSPECIFIED 06/22/2016 LG DUKES N40.1 06/22/2016 LG DUKES R33.8 06/22/2016 LG DUKES 296.99 OTHER SPECIFIED EPISODIC MOOD DISORDER 06/22/2016 LG DUKES 300.00 ANXIETY STATE, UNSPECIFIED 06/22/2016 LG DUKES 401.9 UNSPECIFIED ESSENTIAL HYPERTENSION 06/22/2016 LG DUKES F34.8 OTHER PERSISTENT MOOD [AFFECTIVE] DISORDERS 06/22/2016 LG DUKES F41.9 ANXIETY DISORDER, UNSPECIFIED 06/22/2016 LG DUKES I10 ESSENTIAL (PRIMARY) HYPERTENSION 07/01/2016 LG DUKES 564.00 03/04/2017 LG DUKES 307.9 OTHER AND UNSPECIFIED SPECIAL SYMPTOMS OR SYNDROMES, NOT ELSEWHERE CLASSIFIED 03/04/2017 LG DUKES R45.1 RESTLESSNESS AND AGITATION 03/09/2017 LG DUKES 307.9 OTHER AND UNSPECIFIED SPECIAL SYMPTOMS OR SYNDROMES, NOT ELSEWHERE CLASSIFIED 03/09/2017 LG DUKES R45.1 RESTLESSNESS AND AGITATION 03/23/2017 LG DUKES 250.00 03/23/2017 LG DUKES 268.9 03/23/2017 LG DUKES 298.9 UNSPECIFIED PSYCHOSIS 03/23/2017 ERNST LG Adilene 307.9 OTHER AND UNSPECIFIED SPECIAL SYMPTOMS OR SYNDROMES, NOT ELSEWHERE CLASSIFIED 03/23/2017 ERNST LG Adilene 401.0 03/23/2017 LG DUKES 530.81 ESOPHAGEAL REFLUX 03/23/2017 ERNST LG Adilene 564.1 IRRITABLE BOWEL SYNDROME 03/23/2017 ERNST LG Adilene 600.20 03/23/2017 LG DUKES E11.9 TYPE 2 DIABETES MELLITUS WITHOUT COMPLICATIONS 03/23/2017 LG DUKES E55.9 VITAMIN D DEFICIENCY, UNSPECIFIED 03/23/2017 LG DUKES F29 UNSP PSYCHOSIS NOT DUE TO A SUBSTANCE OR KNOWN PHYSIOL COND 03/23/2017 ERNST LG Adilene I10 ESSENTIAL (PRIMARY) HYPERTENSION 03/23/2017 LG DUKES K21.9 GASTRO-ESOPHAGEAL REFLUX DISEASE WITHOUT ESOPHAGITIS 03/23/2017 LG DUKES K58.9 IRRITABLE BOWEL SYNDROME WITHOUT DIARRHEA 03/23/2017 LG DUKES N40.0 BENIGN PROSTATIC HYPERPLASIA WITHOUT LOWER URINRY TRACT SYMP 03/23/2017 LG DUKES R45.1 RESTLESSNESS AND AGITATION 03/23/2017 ERNST LG Adilene V15.52 03/23/2017 ERNST LG Adilene Z87.820 PERSONAL HISTORY OF TRAUMATIC BRAIN INJURY 11/29/2017 SORAYA МАРИЯ W 250.00 11/29/2017 SORAYA МАРИЯ W 272.4 11/29/2017 SORAYA МАРИЯ W 297.1 11/29/2017 SORAYA МАРИЯ W 300.02 11/29/2017 SORAYA МАРИЯ W 401.0 MALIGNANT ESSENTIAL HYPERTENSION 11/29/2017 SORAYA МАРИЯ W 530.81 ESOPHAGEAL REFLUX 11/29/2017 SORAYA МАРИЯ W 560.1 11/29/2017 SOARYA МАРИЯ W 600.21 BENIGN LOCALIZED HYPERPLASIA OF PROSTATE WITH URINARY OBSTRUCTION AND OTHER LOWER URINARY TRACT SYMPTOMS (LUTS) 11/29/2017 SORAYA МАРИЯ W 784.59 11/29/2017 SORAYA МАРИЯ W 788.29 OTHER SPECIFIED RETENTION OF URINE 11/29/2017 МАРИЯ LIRA E11.9 TYPE 2 DIABETES MELLITUS WITHOUT COMPLICATIONS 11/29/2017 SORAYA, МАРИЯ W E78.5 HYPERLIPIDEMIA, UNSPECIFIED 11/29/2017 SORAYA МАРИЯ W F22 DELUSIONAL DISORDERS 11/29/2017 SORAYA МАРИЯ W F41.1 11/29/2017 SORAYA МАРИЯ W I10 ESSENTIAL (PRIMARY) HYPERTENSION 11/29/2017 SORAYA МАРИЯ W K21.9 GASTRO-ESOPHAGEAL REFLUX DISEASE WITHOUT ESOPHAGITIS 11/29/2017 SORAYA МАРИЯ W K56.7 ILEUS, UNSPECIFIED 11/29/2017 SORAYA МАРИЯ W N40.1 BENIGN PROSTATIC HYPERPLASIA WITH LOWER URINARY TRACT SYMP 11/29/2017 SORAYA МАРИЯ W R33.8 OTHER RETENTION OF URINE 11/29/2017 МАРИЯ LIRA R47.9 UNSPECIFIED SPEECH DISTURBANCES 11/29/2017 SORAYA МАРИЯ W V15.52 PERSONAL HISTORY OF TRAUMATIC BRAIN INJURY 11/29/2017 МАРИЯ LIRA Z87.820 PERSONAL HISTORY OF TRAUMATIC BRAIN INJURY 02/08/2018 GILDA STERN MD E11.9 Type 2 diabetes mellitus without complications 02/08/2018 GILDA STERN MD F01.50 Vascular dementia without behavioral disturbance 02/08/2018 GILDA STERN MD F20.0 Paranoid schizophrenia 02/08/2018 GILDA STERN MD F42.9 Obsessive-compulsive disorder, unspecified 02/08/2018 GILDA STERN MD G89.29 Other chronic pain 02/08/2018 GILDA STERN MD I10 Essential (primary) hypertension 02/08/2018 GILDA STERN MD K21.9 Gastro-esophageal reflux disease without esophagitis 02/08/2018 GILDA STERN MD R47.9 Unspecified speech disturbances 02/08/2018 GILDA STERN MD Z87.820 Personal history of traumatic brain injury 02/24/2018 Z68.30 Body Mass Index 30.0-30.9 Adult 04/06/2018 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 04/06/2018 F33.41 Major depressive disorder, recurrent, in partial remission 04/06/2018 G43.919 Migraine, intractable 04/06/2018 [id number] Gouty arthritis, chronic, with tophus 04/06/2018 R56.9 Convulsions 04/06/2018 Z00.00 Well Adult Exam 04/06/2018 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 04/06/2018 F20.0 Paranoid schizophrenia, chronic 04/06/2018 F80.9 Developmental speech and language disorder 04/06/2018 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 04/06/2018 J45.909 Asthma, mild 04/06/2018 K58.0 Irritable bowel syndrome with diarrhea 04/06/2018 M62.81 Muscle weakness 04/06/2018 Z68.31 Body Mass Index 31.0-31.9 Adult 04/22/2018 SORAYA, МАРИЯ W 311 DEPRESSIVE DISORDER, NOT ELSEWHERE CLASSIFIED 04/22/2018 SORAYA, МАРИЯ W F32.9 MAJOR DEPRESSIVE DISORDER, SINGLE EPISODE, UNSPECIFIED 04/22/2018 SORAYA, МАРИЯ W 311 DEPRESSIVE DISORDER, NOT ELSEWHERE CLASSIFIED 04/22/2018 SORAYA, МАРИЯ W F32.9 MAJOR DEPRESSIVE DISORDER, SINGLE EPISODE, UNSPECIFIED 04/22/2018 SORAYA, МАРИЯ W 311 DEPRESSIVE DISORDER, NOT ELSEWHERE CLASSIFIED 04/22/2018 SORAYA, МАРИЯ W F32.9 MAJOR DEPRESSIVE DISORDER, SINGLE EPISODE, UNSPECIFIED 04/23/2018 SORAYA, МАРИЯ W 311 DEPRESSIVE DISORDER, NOT ELSEWHERE CLASSIFIED 04/23/2018 SORAYA, МАРИЯ W F32.9 MAJOR DEPRESSIVE DISORDER, SINGLE EPISODE, UNSPECIFIED 04/25/2018 SORAYA, МАРИЯ W 311 DEPRESSIVE DISORDER, NOT ELSEWHERE CLASSIFIED 04/25/2018 SORAYA, МАРИЯ W F32.9 MAJOR DEPRESSIVE DISORDER, SINGLE EPISODE, UNSPECIFIED 04/28/2018 SORAYA, МАРИЯ W 311 DEPRESSIVE DISORDER, NOT ELSEWHERE CLASSIFIED 04/28/2018 SORAYA, МАРИЯ W F32.9 MAJOR DEPRESSIVE DISORDER, SINGLE EPISODE, UNSPECIFIED 05/10/2018 SORAYA, МАРИЯ W 250.00 05/10/2018 SORAYA, МАРИЯ W 272.4 05/10/2018 SORAYA, МАРИЯ W 296.34 05/10/2018 SORAYA, МАРИЯ W 311 DEPRESSIVE DISORDER, NOT ELSEWHERE CLASSIFIED 05/10/2018 МАРИЯ LIRA 401.0 MALIGNANT ESSENTIAL HYPERTENSION 05/10/2018 SORAYA МАРИЯ W 530.81 ESOPHAGEAL REFLUX 05/10/2018 SORAYA МАРИЯ W 564.1 05/10/2018 SORAYA МАРИЯ W 600.21 BENIGN LOCALIZED HYPERPLASIA OF PROSTATE WITH URINARY OBSTRUCTION AND OTHER LOWER URINARY TRACT SYMPTOMS (LUTS) 05/10/2018 SORAYA МАРИЯ W 788.29 OTHER SPECIFIED RETENTION OF URINE 05/10/2018 SORAYA МАРИЯ W E11.9 TYPE 2 DIABETES MELLITUS WITHOUT COMPLICATIONS 05/10/2018 SORAYA МАРИЯ W E78.5 HYPERLIPIDEMIA, UNSPECIFIED 05/10/2018 МАРИЯ LIRA F32.9 MAJOR DEPRESSIVE DISORDER, SINGLE EPISODE, UNSPECIFIED 05/10/2018 МАРИЯ LIRA F33.3 MAJOR DEPRESSV DISORDER, RECURRENT, SEVERE W PSYCH SYMPTOMS 05/10/2018 МАРИЯ LIRA W I10 ESSENTIAL (PRIMARY) HYPERTENSION 05/10/2018 МАРИЯ LIRA W K21.9 GASTRO-ESOPHAGEAL REFLUX DISEASE WITHOUT ESOPHAGITIS 05/10/2018 МАРИЯ LIRA K58.9 IRRITABLE BOWEL SYNDROME WITHOUT DIARRHEA 05/10/2018 МАРИЯ LIRA N40.1 BENIGN PROSTATIC HYPERPLASIA WITH LOWER URINARY TRACT SYMP 05/10/2018 МАРИЯ LIRA W R33.8 OTHER RETENTION OF URINE 05/23/2018 E66.9 Obesity Class I (BMI 30-34.9) 05/23/2018 F33.2 Depression, major, recurrent, severe, w/o psychotic behavior 05/23/2018 Z68.32 BMI 32-32.9 Procedures Code Description [place] D0140 LIMIT ORAL EVAL PROBLM FOCUS 11/30/2013 D0220 INTRAORAL PERIAPICAL FIRST F 11/30/2013 D0099 NO CHARGE/FOLLOW UP 12/06/2013 Results Test Result Range CBC - 09/19/14 00:00 HCT 39.0 % 41.9-52.0 HGB 14.0 G/DL 13.0-18.0 MCH 28.3 PG 27-31 MCHC 35.9 G/DL 33-37 MCV 78.8 FL 80-94 MPV 10.2 FL 7.3-10.4 PLT 231 10^3u 130-400 RBC 5.0 10^6u 4.7-6.1 RDW 13.2 % 11.5-15.5 WBC 6.7 10^3u 4.8-10.8 CKMB - 09/19/14 00:00 CKMB 1.4 NG/ML 0-3.6 CK - 09/19/14 00:00 CK 183 IU/L 39-308 CMP - 09/19/14 00:00 ALB 3.9 G/DL 3.5-5 ALP 36 IU/L 39-107 ALT 73 IU/L 12-65 AST 34 IU/L 10-42 BCR 11.4 10-20 BUN 16 MG/DL 7-18 CA 8.0 MG/DL 8.4-10.2 CL 96 MEQ/L 98-107 CO2 23.1 MEQ/L 22-28 CREA 1.40 MG/DL 0.6-1.3 EGFR 53 eGFR >=60 GLU 165 MG/DL 70-105 K 4.5 MEQ/L 3.5-5.1 NA 131 MEQ/L 134-145 OSMSC 267.5 MOSML 280-300 TBIL 0.2 MG/DL 0.1-1.0 TP 7.1 G/DL 6.0-8.3 Albumin/Globulin Ratio 1.2 0-8 Anion Gap 11.9 8-16 PRO-BNP - 09/19/14 00:00 PRO-BNP 83 PG/ML 0-900 TROP - 09/19/14 00:00 TROP < 0.04 NG/ML 0.0-0.4 TROP - 09/19/14 00:00 TROP < 0.04 NG/ML 0.0-0.4 TROP - 09/20/14 00:00 TROP < 0.04 NG/ML 0.0-0.4 CBC WITH DIFF - 09/23/14 00:00 BASO% 0.3 % 0-2 EOS% 3.7 % 0-7.0 HCT 35.2 % 41.9-52.0 HGB 12.6 G/DL 13.0-18.0 LYMPH% 24.4 % 20-40 MCH 28.9 PG 27-31 MCHC 35.8 G/DL 33-37 MCV 80.7 FL 80-94 MONO% 10.3 % 0-10.0 MPV 10.4 FL 7.3-10.4 NEUTRO% 61.3 % 40-70 PLT 203 10^3u 130-400 RBC 4.4 10^6u 4.7-6.1 RDW 12.7 % 11.5-15.5 WBC 7.5 10^3u 4.8-10.8 NEUTRO# 4.6 10^3u 1.5-7.5 LYMPH# 1.8 10^3u 0.9-4.0 MONO# 0.8 10^3u 0-0.8 EOS# 0.3 10^3u 0-0.6 BASO# 0.0 10^3u 0-0.1 UA - 09/23/14 00:00 PH 5.5 4.5-8.0 SG 1.008 1.003-1.035 UABILI NEGATIVE UABLD NEGATIVE UACOLOR YEL UAGLU NEGATIVE UAKET NEGATIVE UALEUK NEGATIVE UANIT NEGATIVE UAURO 0.2 0-0.2 CLARITY CL PROTEIN NEGATIVE UA WBC NOWBC UA RBC NORBC SQUAMOUS EPITHELIAL CELLS FEW LIP - 09/23/14 00:00 LIP 133 U/L 73-393 CMP - 09/23/14 00:00 ALB 3.5 G/DL 3.5-5 ALP 35 IU/L 39-107 ALT 54 IU/L 12-65 AST 26 IU/L 10-42 BCR 9.1 10-20 BUN 10 MG/DL 7-18 CA 8.0 MG/DL 8.4-10.2 CL 97 MEQ/L 98-107 CO2 22.9 MEQ/L 22-28 CREA 1.10 MG/DL 0.6-1.3 EGFR 70 eGFR >=60 GLU 148 MG/DL 70-105 K 4.2 MEQ/L 3.5-5.1 NA 130 MEQ/L 134-145 OSMSC 262.6 MOSML 280-300 TBIL 0.2 MG/DL 0.1-1.0 TP 6.4 G/DL 6.0-8.3 Albumin/Globulin Ratio 1.2 0-8 Anion Gap 10.1 8-16 UA - 04/08/15 00:00 PH 6.0 4.5-8.0 SG 1.025 1.003-1.035 UABILI 1+ UABLD NEGATIVE UACOLOR YEL UAGLU NEGATIVE UAKET 1+ UALEUK NEGATIVE UANIT NEGATIVE UAURO 0.2 0-0.2 UCX NO CLARITY CL PROTEIN NEGATIVE UA WBC NOWBC UA RBC R05 SQUAMOUS EPITHELIAL CELLS NOSQUAM CMP - 04/08/15 00:00 ALB 3.3 G/DL 3.5-5 ALP 56 IU/L 39-107 ALT 23 IU/L 12-65 AST 11 IU/L 10-42 BCR 26.3 10-20 BUN 45 MG/DL 7-18 CA 8.0 MG/DL 8.4-10.2 CL 97 MEQ/L 98-107 CO2 16.8 MEQ/L 22-28 CREA 1.71 MG/DL 0.6-1.3 EGFR 42 eGFR >=60 GLU 139 MG/DL 70-105 K 3.7 MEQ/L 3.5-5.1 NA 130 MEQ/L 134-145 OSMSC 274.6 MOSML 280-300 TBIL 0.2 MG/DL 0.1-1.0 TP 6.7 G/DL 6.0-8.3 Albumin/Globulin Ratio 1.0 0-8 Anion Gap 16.2 8-16 LACTIC ACID - 04/08/15 00:00 LA 1.0 MMOLL 0.4-2.0 CBC WITH DIFF - 04/08/15 00:00 BANDS 4.0 % 0-5 EOS 14.0 % 0-7 HCT 43.4 % 41.9-52.0 HGB 15.4 G/DL 13.0-18.0 LYMPH 16.0 % 20-40 MCH 30.2 PG 27-31 MCHC 35.5 G/DL 33-37 MCV 85.1 FL 80-94 MONO 7.0 % 0-10 MPV 10.2 FL 7.3-10.4 PLT 349 10^3u 130-400 RBC 5.1 10^6u 4.7-6.1 RDW 13.1 % 11.5-15.5 WBC 20.2 10^3u 4.8-10.8 SEGS 59.0 % 40-70 HA1C - 04/08/15 00:00 HA1C 5.9 % 4.5-6.2 STOOL CULTURE - [facility] - 04/08/15 00:00 CULTCA SEE NOTE CULTST SEE NOTE SHIGA SEE NOTE BMP - 04/09/15 00:00 BCR 22.2 10-20 BUN 36 MG/DL 7-18 CA 7.8 MG/DL 8.4-10.2 CL 103 MEQ/L 98-107 CO2 16.6 MEQ/L 22-28 CREA 1.62 MG/DL 0.6-1.3 EGFR 44 eGFR >=60 GLU 105 MG/DL 70-105 K 3.4 MEQ/L 3.5-5.1 NA 137 MEQ/L 134-145 OSMSC 282.5 MOSML 280-300 Anion Gap 17.4 8-16 CBC - 04/10/15 00:00 HCT 35.8 % 41.9-52.0 HGB 12.6 G/DL 13.0-18.0 MCH 29.9 PG 27-31 MCHC 35.2 G/DL 33-37 MCV 85.0 FL 80-94 MPV 10.3 FL 7.3-10.4 PLT 256 10^3u 130-400 RBC 4.2 10^6u 4.7-6.1 RDW 13.3 % 11.5-15.5 WBC 15.8 10^3u 4.8-10.8 [facility] - 04/10/15 00:00 BCR 11.7 10-20 BUN 11 MG/DL 7-18 CA 8.1 MG/DL 8.4-10.2 CL 105 MEQ/L 98-107 CO2 19.3 MEQ/L 22-28 CREA 0.94 MG/DL 0.6-1.3 EGFR 83 eGFR >=60 GLU 123 MG/DL 70-105 K 3.9 MEQ/L 3.5-5.1 NA 135 MEQ/L 134-145 OSMSC 270.9 MOSML 280-300 Anion Gap 10.7 8-16 CKMB - 04/10/15 00:00 CKMB 1.1 NG/ML 0-3.6 CK - 04/10/15 00:00 CK 97 IU/L 39-308 TROP - 04/10/15 00:00 TROP < 0.04 NG/ML 0.0-0.4 CKMB - 04/10/15 00:00 CKMB 1.2 NG/ML 0-3.6 CK - 04/10/15 00:00 CK 93 IU/L 39-308 TROP - 04/10/15 00:00 TROP < 0.04 NG/ML 0.0-0.4 CKMB - 04/10/15 00:00 CKMB 1.3 NG/ML 0-3.6 CK - 04/10/15 00:00 CK 92 IU/L 39-308 TROP - 04/10/15 00:00 TROP < 0.04 NG/ML 0.0-0.4 Folate - 06/22/16 17:23 Folate 8.90 ng/mL 7.00-31.40 Vitamin D, 25 OH - 06/22/16 17:23 Vitamin D, 25 OH 30.90 ng/mL 25.00-100.00 VIT B-12 - 06/22/16 17:23 Vitamin B12 238.00 pg/mL 213.00-816.00 Free T4 - 06/22/16 17:23 Free T4 0.98 ng/dL 0.81-1.61 Thyroid Stimulating Hormone - 06/22/16 17:24 TSH 1.58 mIU/mL 0.32-5.00 MRSA Screen - 06/22/16 17:24 FINAL CULTURE RESULTS MRSA Negative Nasal Culture MEDIA PLATED Setup at 17:34 on 06/22/2016 Hemoglobin A1C - 06/22/16 18:22 % A1C 6.00 % 5.40-6.60 AvGlu 135 mg/dL 70-110 Lipid Panel - 06/23/16 05:10 C/HDL 6.3 3.7-6.7 Cholesterol 133 mg/dL 100-240 HDL 21 mg/dL 30-85 LDL-Calculated 76 mg/dL 0-100 Trig 180 mg/dL 35-160 VLDL 36 mg/dL 0-42 Valproic Acid - 03/04/17 19:11 Valproic Acid 47.5 ug/mL 55.0-105.0 Thyroid Stimulating Hormone - 03/04/17 19:11 TSH 0.99 mIU/mL 0.32-5.00 VIT B-12 - 03/04/17 19:11 Vitamin B12 336.00 pg/mL 213.00-816.00 Vitamin D, 25 OH - 03/04/17 19:11 Vitamin D, 25 OH 30.30 ng/mL 25.00-100.00 MRSA Screen - 03/04/17 19:11 FINAL CULTURE RESULTS MRSA POSITIVE Nasal Culture MEDIA PLATED Setup at 19:40 on 03/04/2017 Lipid Panel - 03/05/17 05:10 C/HDL 6.4 3.7-6.7 Cholesterol 140 mg/dL 100-240 HDL 22 mg/dL 30-85 LDL-Calculated 66 mg/dL 0-100 Trig 258 mg/dL 35-160 VLDL 52 mg/dL 0-42 Valproic Acid - 03/12/17 05:15 Valproic Acid 23.3 ug/mL 55.0-105.0 Valproic Acid - 03/16/17 05:20 Valproic Acid 47.7 ug/mL 55.0-105.0 Thyroid Stimulating Hormone - 11/15/17 13:38 TSH 1.56 mIU/mL 0.32-5.00 MRSA Screen - 11/15/17 13:38 FINAL CULTURE RESULTS MRSA POSITIVE Nasal Culture MEDIA PLATED Setup at 17:48 on 11/15/2017 Urinalysis - 11/19/17 13:46 Icotest N/A Negative Urine Volume Urine Volume Sufficient (10mL) Urine Yeast No Yeast present Urine-Appearance Clear Clear Urine-Bacteria Negative Urine-Bilirubin Negative Negative Urine-Blood Trace-intact Negative Urine-Color Yellow Colorless-Lt. Yellow Urine-Glucose Negative Negative Urine-Ketones Negative Negative Urine-Leukocytes Negative Negative Urine-Nitrite Negative Negative Urine-Other Urine Saved if Culture Needed (48hrs from time of collection) Urine-pH 5.5 5-8.5 Urine-Protein 1+ Negative Urine-RBC 2-5/HPF Urine-Specific Harleigh 1.015 1.000-1.030 Urine-WBC Negative Urobilinogen 0.2 E.U./dL 0.2-1.0 CULTURE, URINE - 01/20/18 16:21 CULTURE, URINE, ROUTINE SEE NOTE [facility] SPECIMEN ID NOTIFICATION$MISSING SECOND ID - 01/20/18 16:21 COMMENT: [facility] Lipid Panel - 04/21/18 21:37 C/HDL 8.0 3.7-6.7 Cholesterol 191 mg/dL 100-240 HDL 24 mg/dL 30-85 LDL-Calculated Unable to calculate due to elevated triglycerides mg/ dL 0-100 Trig 500 mg/dL 35-160 VLDL 100 mg/dL 0-42 MRSA Screen - 04/21/18 22:33 FINAL CULTURE RESULTS MRSA Negative Nasal Culture MEDIA PLATED Setup at 21:50 on 04/21/2018 Urinalysis - 04/21/18 23:06 Icotest N/A Negative Urine Crystals Amorphous material: few/HPF Urine Volume Urine Volume Sufficient (10mL) Urine-Appearance Clear Clear Urine-Bacteria Rare Urine-Bilirubin Negative Negative Urine-Blood Negative Negative Urine-Color Yellow Colorless-Lt. Yellow Urine-Epithelial Cells 0-5/HPF Urine-Glucose Trace Negative Urine-Ketones Trace Negative Urine-Leukocytes Negative Negative Urine-Nitrite Negative Negative Urine-Other Urine Saved if Culture Needed (48hrs from time of collection) Urine-pH 5.5 5-8.5 Urine-Protein Negative Negative Urine-RBC 0-2/HPF Urine-Specific Harleigh >=1.030 1.000-1.030 Urine-WBC 2-5/HPF Urobilinogen 1.0 0.2-1.0 Hemoglobin A1C - 04/22/18 04:45 % A1C 6.40 % 5.40-6.60 AvGlu 150 mg/dL 70-110 EKG - 04/22/18 05:05 EKG Complete Comprehensive Metabolic Panel - 04/28/18 04:58 Albumin 5.4 g/dL 3.6-5.1 ALP 32 U/L 35-130 ALT 43 U/L 6-45 Anion Gap 18 6-14 AST 31 U/L 2-40 BUN 9 mg/dL 5-25 Calcium 10.1 mg/dL 8.3-10.4 Chloride 107 mmol/L 95-114 CO2 19 mEq/L 22-33 Creat 0.90 mg/dL 0.50-1.50 eGFR 87 mL/min/1.73m2 >59 Globulin 3.0 g/dL 2.3-3.5 Glucose 122 mg/dL 70-110 Osmo 289 280-295 Potassium 4.1 mmol/L 3.5-5.3 Sodium 140 mmol/L 134-148 TBil 0.5 mg/dL 0.2-1.2 TP 8.4 g/dL 6.0-8.3 Valproic Acid - 05/09/18 05:05 Valproic Acid 35.9 ug/mL 55.0-105.0 Comprehensive Metabolic Panel - 05/10/18 04:45 Albumin 4.9 g/dL 3.6-5.1 ALP 29 U/L 35-130 ALT 60 U/L 6-45 Anion Gap 17 6-14 AST 32 U/L 2-40 BUN 8 mg/dL 5-25 Calcium 10.1 mg/dL 8.3-10.4 Chloride 105 mmol/L 95-114 CO2 23 mEq/L 22-33 Creat 0.85 mg/dL 0.50-1.50 eGFR 92 mL/min/1.73m2 >59 Globulin 2.6 g/dL 2.3-3.5 Glucose 120 mg/dL 70-110 Osmo 291 280-295 Potassium 4.2 mmol/L 3.5-5.3 Sodium 141 mmol/L 134-148 TBil 0.4 mg/dL 0.2-1.2 TP 7.5 g/dL 6.0-8.3 Thyroid Stimulating Hormone - 06/08/18 13:28 TSH 2.31 mIU/mL 0.32-5.00 Lipid Panel - 06/09/18 05:15 C/HDL 7.1 3.7-6.7 Cholesterol 156 mg/dL 100-240 HDL 22 mg/dL 30-85 LDL-Calculated 66 mg/dL 0-100 Trig 342 mg/dL 35-160 VLDL 68 mg/dL 0-42 Valproic Acid - 06/11/18 05:25 Valproic Acid 43.5 ug/mL 55.0-105.0 Comprehensive Metabolic Panel - 06/15/18 05:00 Albumin 4.5 g/dL 3.6-5.1 ALP 27 U/L 35-130 ALT 43 U/L 6-45 Anion Gap 16 6-14 AST 31 U/L 2-40 BUN 9 mg/dL 5-25 Calcium 9.5 mg/dL 8.3-10.4 Chloride 106 mmol/L 95-114 CO2 22 mEq/L 22-33 Creat 0.78 mg/dL 0.50-1.50 eGFR 102 mL/min/1.73m2 >59 Globulin 1.9 g/dL 2.3-3.5 Glucose 104 mg/dL 70-110 Osmo 288 280-295 Potassium 4.2 mmol/L 3.5-5.3 Sodium 140 mmol/L 134-148 TBil 0.3 mg/dL 0.2-1.2 TP 6.4 g/dL 6.0-8.3 Encounters ACCT No. Visit Date/Time Discharge Status Pt. Type Provider Facility Loc./Unit Complaint [id number] 04/08/2015 14:20:00 04/12/2015 13:30:00 DIS Inpatient THOMEN, JOSEPH K [facility] 2F [id number] 04/08/2015 12:18:00 04/08/2015 14:20:00 DIS Emergency KILEY HENRY W [facility] EMR [id number] 09/26/2014 06:13:00 09/26/2014 06:13:00 DIS Outpatient JOVANNY SALEEM [facility] RAD [id number] 09/23/2014 19:49:00 09/23/2014 21:41:00 DIS Emergency CHANI GREENBERG [facility] EMR [id number] 09/23/2014 19:50:00 09/23/2014 19:50:00 DIS Outpatient CHANI GREENBERG [facility] EMR [id number] 09/19/2014 16:51:00 09/20/2014 09:50:00 DIS Outpatient JOVANNY SALEEM [facility] OBS [id number] 09/19/2014 14:36:00 09/19/2014 14:36:00 DIS Outpatient CARLENE HENDRICKS W [facility] EMR [id number] 09/04/2014 09:00:00 09/04/2014 23:59:59 CLS Outpatient HARPER [facility] RESP [id number] 03/21/2014 09:29:00 03/21/2014 09:29:00 DIS Outpatient HARPER [facility] RAD [id number] 04/22/2014 00:00:00 Document Registration [id number] 04/22/2014 00:00:00 Document Registration [id number] 04/22/2014 00:00:00 Document Registration [id number] 02/17/2013 10:18:00 02/19/2013 16:18:00 DIS Inpatient Adarsh JERRY, Jesus [facility] [place] F6SE [id number] 11/15/2017 13:00:00 Document Registration [id number] 07/01/2018 20:04:25 ACT Unknown [id number] 01/28/2018 19:00:00 02/08/2018 14:07:00 DIS Inpatient GILDA STERN MD [facility] [id number] 03/16/2018 09:38:00 Document Registration [id number] 05/14/2018 18:57:24 05/14/2018 23:59:59 DIS Outpatient JOSEPH WILEY [facility] JENNY LAB labwork [id number] 04/21/2018 16:57:47 04/21/2018 23:59:59 DIS Outpatient KILEY HENRY [facility] JENNY LAB [id number] 06/08/2018 13:00:00 06/21/2018 14:13:00 DIS Inpatient LEONORA SPANNSHUA [facility] DMITRY [id number] 04/21/2018 21:30:00 05/10/2018 17:10:00 [facility] DM[facility] [id number] 11/15/2017 13:00:00 11/29/2017 13:00:00 [id number] 06/22/2016 16:14:00 07/01/2016 08:30:00 [id number] 12/04/2015 09:00:00 03/23/2016 13:41:00 DIS Outpatient LG DUKES [id number] 03/04/2017 19:04:00 [facility] [id number] 06/22/2016 17:35:49 Document Registration [id number] 12/06/2013 14:17:00 12/06/2013 23:59:59 CLS Outpatient KORINA BROOKE DDS [id number] 11/30/2013 10:08:00 11/30/2013 23:59:59 CLS Outpatient KORINA BROOKE DDS [id number] 06/03/2018 09:20:00 06/03/2018 23:59:59 CLS Outpatient NICK FONSECA APRN [facility] [address] [id number] 01/20/2018 14:00:00 Document Registration [id number] 12/04/2017 05:40:02 ACT Document Registration [id number] 07/02/2018 11:44:00 07/02/2018 14:07:00 DIS Emergency VALE GARDNER APRN [facility] ER AMS
== END 2018-07-02 14:07 | disposition home or self-care (01) ==
LOC: ER 11:44
DX: R45.1 Restlessness and agitation (principal)
CPT/HCPCS: 36415; 80053; 81000; 85025